=== PATIENT | male | born 1975 | race Caucasian/White ===

== ENCOUNTER → 2024-10-24 | Outpatient (REF) | payer SELFPAY ==
[2024-10-24 09:38] LABS: Hematocrit 26.4 % (40-54); Hemoglobin 8.4 g/dL (13.0-16.5); Mean Corp Hgb Conc 31.8 g/dL (32-36); Mean Corpuscular Hgb 28.5 pg (27.0-32.0); Mean Corpuscular Volume 89.5 fL (80-94); Mean Platelet Vol. 8.7 fl (6.2-12.0); Platelet Count 536 K/mm3 (150-450); RBC Distribution Width CV 18.5 % (11.6-14.6); RBC Distribution Width SD 60.6 fl (35.1-43.9); Red Blood Count 2.95 M/mm3 (4.6-6.2); White Blood Count 12.2 K/mm3 (4.4-11.0)
[2024-10-24 09:55] LABS: Vitamin D,25 Hydroxy 63.4 ng/mL
[2024-10-24 10:06] LABS: Anion Gap 7 (5-15); BUN 18 mg/dL (7-18); Calcium,Total 10.3 mg/dL (8.5-10.1); Chloride 104 mmol/L (98-107); Cholesterol 164 mg/dL (200); Creatinine, Serum 1.29 mg/dL (0.70-1.30); EST Glomerular Filtration Rate 62 mL/min (>60); Est Glom Filt Rate - Afr Amer 75 mL/min (>60); Glucose 95 mg/dL (74-106); High Density Lipoprotein 38 mg/dL; Sodium Level 137 mmol/L (136-145); Triglycerides 150 mg/dL; Very Low Density Lipoprotein 30 mg/dL (5-40)
[2024-10-24 16:39] LABS: Hemoglobin A1c 5.2 % (3.8-5.6)
== END ==
LOC: OLS.ACW100 05:00
PROVIDERS: PCP Family Medicine; Visit Provider Family Medicine
DX: Z00.00 Encounter for general adult medical examination without abnormal findings (principal)
CPT/HCPCS: 36415; 80048; 80061; 82306; 83036; 84443; 85027

== ENCOUNTER → 2024-12-04 | Outpatient (REF) | payer MEDICAID, SELFPAY ==
[2024-12-04 09:24] LABS: Anion Gap 11 (5-15); BUN 15 mg/dL (4-19); BUN/Creat Ratio 11.5 RATIO (10-20); Calcium,Total 10.7 mg/dL (7.6-11.0); Carbon Dioxide 23.5 mmol/L (21.0-32.0); Chloride 104 mmol/L (98-108); Creatinine, Serum 1.32 mg/dL (0.70-1.20); EST Glomerular Filtration Rate 65 (>60); Glucose 105 mg/dL (70-99); Potassium 4.3 mmol/L (3.3-5.1); Sodium Level 139 mmol/L (133-145)
== END | disposition home or self-care (01) ==
LOC: OLS.ACW200 05:00
PROVIDERS: PCP Family Medicine; Visit Provider Family Medicine
DX: A41.9 Sepsis, unspecified organism (principal); R27.9 Unspecified lack of coordination; R53.1 Weakness; R78.81 Bacteremia
CPT/HCPCS: 36415; 80048

== ENCOUNTER → 2025-02-18 05:00 | Outpatient (REF) | payer MEDICAID, SELFPAY ==
[2025-02-18 08:06] LABS: Hematocrit 23.8 % (40-54); Hemoglobin 7.4 g/dL (13.0-16.5); Mean Corp Hgb Conc 31.1 g/dL (32-36); Mean Corpuscular Hgb 24.6 pg (27.0-32.0); Mean Corpuscular Volume 79.1 fL (80-94); Mean Platelet Vol. 9.5 fl (6.2-12.0); POSITIVE COUNT YES; Platelet Count 874 K/mm3 (150-450); RBC Distribution Width CV 19.9 % (11.6-14.6); RBC Distribution Width SD 56.9 fl (35.1-43.9); Red Blood Count 3.01 M/mm3 (4.6-6.2); White Blood Count 11.2 K/mm3 (4.4-11.0)
[2025-02-18 08:07] LABS: Scan Indicated on CBC? Y/N YES- FLAGS NOTED
[2025-02-18 08:29] LABS: Hemoglobin A1c 6.3 % (<=5.6)
[2025-02-18 08:35] LABS: Differential Comment SCANNED
[2025-02-18 08:50] LABS: ALB/GLOB Ratio 0.6 RATIO (0.9-2.4); AST(SGOT) 18 U/L (<=37); Alanine Aminotransfer ALT/SGPT 24 U/L (<=46); Alkaline Phosphatase 195 U/L (40-129); Anion Gap 14 (5-15); BUN 16 mg/dL (4-19); BUN/Creat Ratio 13.2 RATIO (10-20); Calcium,Total 8.9 mg/dL (7.6-11.0); Carbon Dioxide 21.5 mmol/L (21.0-32.0); Chloride 101 mmol/L (98-108); Cholesterol 154 mg/dL (<=200); Creatinine, Serum 1.19 mg/dL (0.70-1.20); EST Glomerular Filtration Rate 74 (>60); Globulin 4.6 g/dL (2.2-4.2); Glucose 92 mg/dL (70-99); High Density Lipoprotein 16 mg/dL; Low Density Lipoprotein Calc. 83 mg/dL; Potassium 4.3 mmol/L (3.3-5.1); Protein, Total 7.6 g/dL (5.9-8.4); Sodium Level 136 mmol/L (133-145); Triglycerides 275 mg/dL; Very Low Density Lipoprotein 55 mg/dL (5-40); Vitamin D,25 Hydroxy 30.4 ng/mL (30-100); cholesterol:hdl ratio screen 9.57
[2025-02-28 15:54] LABS: Pathologist Review Reviewed
== END ==
LOC: OLS.ACW300 05:00
PROVIDERS: PCP Family Medicine; Visit Provider Family Medicine
DX: R53.1 Weakness (principal); A41.9 Sepsis, unspecified organism; L73.2 Hidradenitis suppurativa; S31.829D Unspecified open wound of left buttock, subsequent encounter; Z86.19 Personal history of other infectious and parasitic diseases
CPT/HCPCS: 36415; 80053; 80061; 82306; 83036; 83735; 84443; 85027

== ENCOUNTER → 2025-02-20 05:00 | Outpatient (REF) | payer MEDICAID, SELFPAY ==
--- OUTSIDE RECORDS SUMMARY | 2025-02-20 04:17 | XMS RPT_ITS | CCD ---
Author Organization [facility] Care Team Providers Care Inspector Watch Train Name Role Phone Unavailable Primary Care Provider Unavailabl e LAST, MALECK A Attending Unavailable LAST, MALECK A Attending Unavailable LAST, MALECK A Attending Unavailable LAST, MALECK A Attending Unavailable LAST, MALECK A Attending Unavailable LAST, MALECK A Attending Unavailable LAST, MALECYNTHIA A Attending Unavailable LAST, MALECYNTHIA A Attending Unavailable ЕЛЕНА, MARLON Attending Unavailable ЕЛЕНА, MARLON Attending Unavailable ЕЛЕНА, MARLON Attending Unavailable Unavailable Primary Care Provider Unavailbry Jiang MD, Sreedhar Yousif Unavailable Apolinar NIELSEN, Sreedhar Yousif Unavailable Julio Hare Primary Care Provider Unavail able Julio Hare Attending Provider UnavailJUVENAL Tompkins Attending Unavailable JUVENAL MATHUR Admitting Unavailable ARBEN FERNANDEZ Attending UnavailCLARITA Hooker Admitting Unavailable PAULINO LARIOS Admitting Unavailable PAULINO LARIOS Attending Unavailable XIOMARA KAUFFMAN Attending Unavailable Generic Provider MD, No Assigned Pcp Primary Car e Provider Unavailable Julio Hare Attending Unavailable Julio Hare Primary Care Unavailable Julio Hare Primary Care Unavailable Julio Hare Attending Unavailable Julio Hare Attending Unavailable Julio Hare Primary Care Unavailable KAY HUTCHINSON Referring Unavailable XIOMARA KAUFFMAN Referring Unavailable ANKIT NINO Admitting Unavailable MICA LY Attending Unavailable SUBAUSTE, GILBERT S Admitting Unavailable DELGADO RENEE Consulting Unavailable FIDEL CLARKE Attending Unavailable BALDOMERO WILSON Admitting UnavailFER [place] Referring Unavailable HEATHER LACKEY Attending Unavailable SREEDHAR JIANG Attending Unavailable SUBAUSTE, GILBERT S Referring Unavailable LATRICIA SCHROEDER Referring Unavailbry e TOYA RUBIO Admitting Unavailable MACK FRIAS Attending Unavailable LYNETTE SEGOVIA Referring Unavailable APOLINAR, SREEDHAR Yousif Attending Unavailable APOLINAR, IRIS Y Referring Unavailable APOLINAR, IRIS Y Referring Unavailable APOLINAR, IRIS Y Referring Unavailable ANASTASIIA, CURTIS Admitting Unavailable ANASTASIIA, CURTIS Attending Unavailable SALVADOR, WILLOW Referring Unavailable SALVADOR, WILLOW Referring Unavailable GENERIC PROVIDER, NO ASSIGNED PCP Primary Care Unavailable KONG MINA Admitting Unavailable KONG MINA Attending Unavailable PHIL QUIJANO Referring Unavailable GENERIC PROVIDER, NO ASSIGNED PCP Primary Care Unavailable GENERIC PROVIDER, NO ASSIGNED PCP Primary Care Unavailable GENERIC PROVIDER, NO ASSIGNED PCP Primary Care Unavailable GENERIC PROVIDER, NO ASSIGNED PCP Primary Care Unavailable GENERIC PROVIDER, NO ASSIGNED PCP Primary Care Unavailable GENERIC PROVIDER, NO ASSIGNED PCP Primary Care Unavailable GENERIC PROVIDER, NO ASSIGNED PCP Primary Care Unavailable GENERIC PROVIDER, NO ASSIGNED PCP Primary Care Unavailable GENERIC PROVIDER, NO ASSIGNED PCP Primary Care Unavailable GENERIC PROVIDER, NO ASSIGNED PCP Primary Care Unavailable Allergies Allergy Classification Reported Allergen(s) Allergy Type Date of Onset Reaction(s) Facility (7 sources) Bananas; Translations: [BANANA] Propensity to adverse reactions 5 Itching [facility] (2 sources) ALLERGIES NOT ON FILE; Translations: [ALLERGIES NOT ON FILE] Propensity to adverse reactions (disorder) [facility] 3 Repository (9 sources) Banana Extract Drug Allergy [address] [facility] Medications Current Medications Medication Drug Class(es) Dates Sig (Normalized) Sig (Original) bimekizumab-bkzx (Bimzelx Autoinjector) 160 mg/mL auto-injector (2 sources) Start: 11-12-2024 End: 12-20-2024 bimekizumab-bkzx (Bimzelx Autoinjector) 160 mg/mL auto-injector Indications: Hidradenitis suppurativa Inject 320 mg under the skin see administration instructions. Take 1 dose (320mg) every 2 weeks for 9 doses (16 weeks), then take 1 dose every 4 weeks. 640 mL 12 11/12/2024 12/20/2024 Discontinued (Med List Cleanup) Start: 11-12-2024 End: 11-12-2025 bimekizumab-bkzx (Bimzelx Au toinjector) 160 mg/mL auto-injector Indications: Hidradenitis suppurativa Inject 320 mg under the skin see administration instructions. Take 1 dose (320mg) every 2 weeks for 9 doses (16 weeks), then take 1 dose every 4 weeks. 640 mL 12 11/12/2024 11/12/2025 Active bisacodyl 10 mg rectal suppo sitory (5 sources) Stimulant Laxative Start: 12-17-2024 Start: 12-10-2024 End: 12-17-2024 Start: 11-22-2024 End: 11-22-2024 Start: 11-10-2024 End: 11-10-2024 cholecalciferol 0.025 mg ora l tablet (2 sources) Vitamin D Start: 12-11-2024 Start: 12-07-2024 End: 12-10-2024 cholecalciferol (Vitamin D3) 200 Unit tablet split tablet (6 sources) cholecalciferol (Vitamin D3) 200 Unit tablet split tablet Take 10,000 Units by mouth daily. Active cholecalciferol, vitamin D3, (VITAMIN D3 ORAL) (1 source) take 18843 [IU] by mouth once daily cholecalciferol, vitamin D3, (VITAMIN D3 ORAL) Take 10,000 Units by mouth once daily. Active doxycycline hyclate 100 mg oral tablet (3 sources) Tetracycline- class Drug Start: End: Drug or medicament (substance) (20 sources) Start: Start: 10-13-2024 End: 10-13-2024 Start: 09-30-2024 End: 10-23-2024 Start: 08-20-2024 End: 10-23-2024 Start: 07-08-2024 End: 10-23-2024 Start: 05-27-2024 End: 10-23-2024 Start: 04-12-2024 End: 10-23-2024 Start: 04-04-2024 End: 10-23-2024 Start: 02-29-2024 End: 10-23-2024 Start: 02-09-2024 End: 10-23-2024 Start: 01-16-2024 End: 10-23-2024 Start: 12-29-2023 End: 10-23-2024 Start: 12-11-2023 End: 10-23-2024 End: 12-08-2024 ferrous sulfate 325 mg delayed release oral tablet (11 sources) take 1 tablet by barbara th once daily ferrous sulfate 325 (65 Fe) MG EC tablet Take 1 tablet by mouth daily. Active 1 ml heparin sodium, porcine 5000 unt/ml injection (1 source) Unfractionated Heparin, Anti-coagulant Start: 10-11-2024 1 ml HYDROmorphone hydrochloride 1 mg/ml cartridge (15 sources) Opioid Agonist Start: 12-07-2024 Start: 11-15-2024 End: 11-19-2024 Start: 11-15-2024 End: 11-17-2024 Start: 11-13-2024 End: 11-15-2024 take 0.4 mg intravenously every four hours as needed Start: 11-12-2024 End: 11-12-2024 Start: 10-16-2024 End: 10-16-2024 Start: 10-15-2024 take 0.4 mg intravenously ever y four hours as needed Start: 10-13-2024 End: 10-13-2024 Start: 10-10-2024 End: 10-15-2024 sodium hypochlorite 2.5 mg/ml topical solution (4 sources) Start: 12-24-2024 End: 12-24-2024 sodium hypochlorite (Dakin's, HALF-Strength,) 0.25 % external solution Irrigate with as directed 2 times daily. 12/24/2024 Active lactose-reduced food (ENSURE PLUS ORAL) (2 sources) lactose-reduced food (ENSURE PLUS ORAL) Take by mouth once daily in the morning. Active multivitamin with minerals tablet (2 sources) Start: 11-28-2024 End: 12-20-2024 take 1 tablet by mouth once daily multivitamin with minerals tablet Indications: Vitamin deficiency Take 1 tablet by mouth once daily. 11/28/2024 12/20/2024 Discontinued (Med List Cleanup) Start: 11-28-2024 End: 11-28-2025 take 1 tablet by mouth once daily multivitamin with minerals tablet Indications: Vitamin deficiency Take 1 tablet by mouth once daily. 11/28/2024 11/28/2025 Active mv-min/folic/K1/lycopen/lute in (MEN 50 PLUS MULTIVITAMIN ORAL) (1 source) take 1 tablet by mouth once daily mv-min/folic/K1/lycopen/lutein (MEN 50 PLUS MULTIVITAMIN ORAL) Take 1 tablet by mouth once daily. Active oxyCODONE hydrochloride 20 m g oral tablet (20 sources) Opioid Agonist St ar t: 04 -0 - 25 En d: 04 -0 25 take 5 mg by mouth once 5 mg, Oral, Once, On Mon12/24/24 at 1145, For 1 dose Start: 12-24-2024 End: 12-24-2024 take 5 mg by mouth once 5 mg, Oral, Once, On 12/24 at 1145, For 1 dose Start: 12-24-2024 End: 12-24-2024 take 5 mg by mouth once 5 mg, Oral, Once, On 12/24 at 1015, For 1 dose Start: 12-22-2024 End: 12-29-2024 take 1 tablet by mouth every four hours as needed for pain oxyCODONE (Roxicodone) 20 MG immediate release tablet Indications: Abscess of left hip Take 1 tablet (20 mg) by mouth every 4 hours as needed for severe pain (7-10) for up to 5 days. 12/24/2024 12/29/2024 Active Start: 12-07-2024 End: 12-07-2024 Start: 12-07-2024 End: 12-07-2024 take 1 tablet by mouth every six hours as needed for pain and pain 5 mg, Oral, Every 6 hours PRN, severe pain (7-10), moderate pain (4-6), Starting on 12/07/24 at 0556 Start: 11-27-2024 End: 12-30-2024 take 1 tablet by mouth every three hours oxyCODONE (Roxicodone) 20 mg immediate release tablet Indications: Cancer associated pain Take 1 tablet (20 mg) by mouth every 3 (three) hours for 11 days. 88 tablet 12/19/2024 12/30/2024 Active Start: 11-25-2024 Start: 11-23-2024 End: 11-23-2024 Start: 11-10-2024 End: 11-25-2024 take 10 mg by mouth every six hours as needed Start: 11-08-2024 End: 11-10-2024 take 1 tablet by mouth every four hours as needed for pain oxyCODONE (Roxicodone) immediate release tablet 2.5 mg Start: 11-08-2024 End: 11-08-2024 take 5 mg by mouth once 5 mg, Oral, Once, On 10/20 at 1720, For 1 dose Start: 10-11-2024 End: 10-28-2024 take 10 mg by mouth every six hours as needed Start: 09-16-2024 End: 09-16-2024 take 5 mg by mouth once as needed for pain 5 mg, oral, Once, On 09/16/24 at 0730, For 1 dose, If ordered PRN for pain, nurse is permitted to administer this medication for higher pain scores based on patient preference? Yes Start: 09-15-2024 take 1 tablet by barbara th every six hours as needed 5 mg, oral, Every 6 hours PRN, pain moderate (4-6), first line, PRN PRIOR TO DRESSING CHANGES, Starting on 09/15/24 at 1022, If ordered PRN for pain, nurse is permitted to administer this medication for higher pain scores based on patient preference? Yes prochlorperazine 5 mg/ml injectable solution (1 source) Phenothiazine Start: 11-20-2024 take 10 mg intravenously every six hours as needed Study [facility] [id number] povorcitinib 45mg or 75mg tablet (20 sources) Start: 09-30-2024 take 1 tablet by mouth once daily in the morning Study [facility] [id number] povorcitinib 45mg or 75mg tablet Indications: Clinical trial participant Take 1 tablet by mouth once daily. Preferably in the morning, with a full glass of water. 31 tablet 09/30/2024 Active Start: 08-20-2024 take 1 tablet by barbara th once daily in the morning Study [facility] [id number] povorcitinib 45mg or 75mg tablet Indications: Clinical trial participant Take 1 tablet by mouth once daily. Preferably in the morning, with a full glass of water. 62 tablet 08/20/2024 Active Start: 07-08-2024 take 1 tablet by barbara th once daily in the morning Study [facility] [id number] povorcitinib 45mg or 75mg tablet Indications: Clinical trial participant Take 1 tablet by mouth once daily. Preferably in the morning, with a full glass of water. 62 tablet 07/08/2024 Active Start: 05-27-2024 take 1 tablet by barbara th once daily in the morning Study [facility] [id number] povorcitinib 45mg or 75mg tablet Indications: Clinical trial participant Take 1 tablet by mouth once daily. Preferably in the morning, with a full glass of water. 62 tablet 05/27/2024 Active Start: 04-12-2024 take 1 tablet by barbara th once daily in the morning Study [facility] [id number] povorcitinib 45mg or 75mg tablet Indications: Clinical trial participant Take 1 tablet by mouth once daily. Preferably in the morning, with a full glass of water. 62 tablet 04/12/2024 Active Start: 04-04-2024 take 1 tablet by barbara th once daily in the morning Study [facility] [id number] povorcitinib 45mg or 75mg tablet Indications: Clinical trial participant Take 1 tablet by mouth once daily. Preferably in the morning, with a full glass of water. 31 tablet 04/04/2024 Active Start: 02-29-2024 take 1 tablet by barbara th once daily in the morning Study [facility] [id number] povorcitinib 45mg or 75mg tablet Indications: Clinical trial participant Take 1 tablet by mouth once daily. Preferably in the morning, with a full glass of water. 31 tablet 02/29/2024 Active Study [facility] [id number] povorcitinib 45mg, 75mg or placebo tablet (20 sources) Start: 02-09-2024 take 1 tablet by mouth once daily in the morning Study [facility] [id number] povorcitinib 45mg, 75mg or placebo tablet Indications: Clinical trial participant Take 1 tablet by mouth once daily. Preferably in the morning, with a full glass of water. 31 tablet 02/09/2024 Active Start: 01-16-2024 take 1 tablet by barbara th once daily in the morning Study [facility] [id number] povorcitinib 45mg, 75mg or placebo tablet Indications: Clinical trial participant Take 1 tablet by mouth once daily. Preferably in the morning, with a full glass of water. 31 tablet 01/16/2024 Active Start: 12-29-2023 take 1 tablet by barbara th once daily in the morning Study [facility] [id number] povorcitinib 45mg, 75mg or placebo tablet Indications: Clinical trial participant Take 1 tablet by mouth once daily. Preferably in the morning, with a full glass of water. 31 tablet 12/29/2023 Active Start: 12-11-2023 take 1 tablet by barbara th once daily in the morning Study [facility] [id number] povorcitinib 45mg, 75mg or placebo tablet Indications: Clinical trial participant Take 1 tablet by mouth once daily. Preferably in the morning, with a full glass of water. 31 tablet 12/11/2023 Active Start: 12-11-2023 take 1 tablet by barbara th once daily in the morning Study [facility] [id number] povorcitinib 45mg, 75mg or placebo tablet Indications: Clinical trial participant Take 1 tablet by mouth once daily. Preferably in the morning, with a full glass of water. 31 tablet 0 12/11/2023 Active Vancomycin (20 sources) Glycopeptide Antibacterial Start: 12-24-2024 take 1250 mg intravenously every twelve hours vancomycin IVPB 1250 mg in 250 mL NS (premix) Infuse 250 mL (1,250 mg) into a venous catheter every 12 hours. 12/24/2024 Active Start: 12-23-2024 End: 12-24-2024 1,250 mg (rounded from 1,341 mg = 15 mg/kg 89.4 kg), IntraVENous, at 166.7 mL/hr, Administer over 90 Minutes, Every 12 hours, First dose on Mon12/23/24 at 1100, premix bag, Suspected Indication (Select all that apply): Skin and Soft Tissue Infection Start: 12-22-2024 End: 12-22-2024 Start: 12-07-2024 End: 12-08-2024 take 1000 mg intravenously every twelve hours Start: 12-07-2024 End: 12-07-2024 take 1250 mg intravenously every twelve hours 1,250 mg, IntraVENous, at 166.7 mL/hr, Administer over 90 Minutes, Every 12 hours, First dose on 12/07/24 at 0630, premix bag, Suspected Indication (Select all that apply): Skin and Soft Tissue Infection Start: 12-06-2024 End: 12-06-2024 1,750 mg (rounded from 1,788 mg = 20 mg/kg 89.4 kg), IntraVENous, at 250 mL/hr, Administer over 120 Minutes, Once, On Mon12/06/24 at 1400, For 1 dose, premix bag, Suspected Indication (Select all that apply): Skin and Soft Tissue Infection Start: 11-10-2024 End: 11-11-2024 take 1000 mg intravenously every twelve hours Start: 11-08-2024 End: 11-08-2024 2,000 mg (rounded from 2,080 mg = 20 mg/kg 104 kg), IntraVENous, at 250 mL/hr, Administer over 120 Minutes, Once, On Mon11/08/24 at 1555, For 1 dose, premix bag, Suspected Indication (Select all that apply): Skin and Soft Tissue Infection Start: 10-10-2024 End: 10-19-2024 take 750 mg intravenously every twelve hours Start: 09-14-2024 End: 09-16-2024 take 750 mg intravenously every twelve hours 750 mg, intravenous, at 200 mL/hr, Administer over 45 Minutes, Every 12 hours, First dose on 09/14/24 at 1015, premix bag, Dosing of this medication varies based on severity of illness. Does this patient have sepsis or concern for sepsis (probable or documented infection plus systemic manifestations of infection)? No, Suspected Indication (Select all that apply): Cellulitis, Skin and Soft Tissue, Type of Therapy: Empiric, Indications: Cellulitis, Skin and Soft Tissue Start: 09-13-2024 End: 09-13-2024 2,000 mg, IntraVENous, at 25 0 mL/hr, Administer over 120 Minutes, Every 24 hours, First dose on Mon09/13/24 at 2000, premix bag, Suspected Indication (Select all that apply): Skin and Soft Tissue Infection Start: 09-12-2024 End: 09-13-2024 2,000 mg (rounded from 2,040 mg = 20 mg/kg 102 kg), IntraVENous, at 250 mL/hr, Administer over 120 Minutes, Once, On Key 09/12/24 at 2300, For 1 dose, premix bag, Suspected Indication (Select all that apply): Skin and Soft Tissue Infection varenicline 1 mg oral tablet (20 sources) Partial Cholinergic Nicotinic Agonist Start: 11-10-2024 Start: 10-22-2024 End: 01-19-2025 varenicline tartrate (Chanti x) 0.5 mg tablet Indications: Nicotine dependence, uncomplicated, unspecified nicotine product type Take 1 tablet (0.5 mg) by mouth 2 times a day for 4 days, THEN 2 tablets (1 mg) 2 times a day. Take with full glass of water.. Do not fill before October 22, 2024. 316 tablet 10/22/2024 12/20/2024 Discontinued (Med List Cleanup) Start: 09-18-2024 End: 12-07-2024 Start: 09-18-2024 End: 09-22-2024 varenicline (Chantix) tablet 0.5 mg (2 sources) Start: 10-21-2024 End: 10-28-2024 take 3 g intravenously every six hours Start: 10-19-2024 take 3 g intravenously every s ix hours (5 sources) Start: 12-08-2024 take 4 mg by mouth every eight hours as needed [Order 1 Start] Name: ondansetron (Zofran) tablet 4 mg Signed Summary: 4 mg, oral, Every 8 hours PRN, nausea/vomiting, first line, Starting on 12/08/24 at 1549 [Order 1 End] [Order 2 Start] Name: ondansetron (Zofran) injection 4 mg Signed Summary: 4 mg, intravenous, Every 8 hours PRN, nausea/vomiting, first line, Starting on 12/08/24 at 1549, Give IV if patient is unable to take orally. When administering via IV Push, administer over 3-5 minutes. [Order 2 End] Start: 12-08-2024 take 10 mg by mouth every six hours as needed [Order 1 Start] Name: prochlorperazine (Compazine) tablet 10 mg Signed Summary: 10 mg, oral, Every 6 hours PRN, nausea/vomiting, second line, Starting on 12/08/24 at 1023 [Order 1 End] [Order 2 Start] Name: prochlorperazine (Compazine) injection 10 mg Signed Summary: 10 mg, intravenous, Every 6 hours PRN, nausea/vomiting, second line, Starting on Mon12/08/24 at 1023, Give IV if patient is unable to take orally. [Order 2 End] [Order 3 Start] Name: prochlorperazine (Compazine) suppository 25 mg Signed Summary: 25 mg, rectal, Every 12 hours PRN, nausea/vomiting, second line, Starting on Mon12/08/24 at 1023, Give IN if patient is unable to take orally or receive by injection. [Order 3 End] Start: 11-12-2024 End: 11-12-2024 Start: 10-22-2024 End: 10-26-2024 [Order 1 Start] Name: vareni chou tartrate (Chantix) tablet 0.5 mg Signed Summary: 0.5 mg, oral, 2 times daily, First dose on Mon10/22/24 at 0900, For 4 days, Increased frequency on days 4-7, then increased dose to 1 mg twice daily from day 8 through the end of 12 weeks of treatment. [Order 1 End] [Order 2 Start] Name: varenicline tartrate (Chantix) tablet 1 mg Signed Summary: 1 mg, oral, 2 times daily, First dose on Mon10/26/24 at 0900, For 77 days, Increased dose of 1 mg twice daily from week 2 through end of 12 weeks of treatment. [Order 2 End] Start: 10-15-2024 End: 10-15-2024 Completed/Discontinued Medications Medication Drug Class(es) Dates Sig (Normalized) Sig (Original) Acetaminophen (20 sources) Start: 12-23-2024 End: 12-24-2024 take 1 tablet by mouth every six hours as needed for pain and fever acetaminophen (Tylenol) tablet 650 mg Start: 12-22-2024 End: 12-24-2024 take 1 tablet by mouth every six hours 1,000 mg, Oral, Every 6 hours, First dose on Mon12/22/24 at 1400, Maximum dose of acetaminophen is 4000 mg from all sources in 24 hours. Start: 12-07-2024 take 1 tablet by barbara th every eight hours Start: 12-07-2024 End: 12-07-2024 take 1 tablet by mouth every six hours as needed for pain and fever acetaminophen (Tylenol) tablet 650 mg Start: 11-10-2024 Start: 11-09-2024 End: 11-19-2024 take 2 tablets by mouth every eight hours acetaminophen (Tylenol) 500 MG tablet Take 2 tablets (1,000 mg) by mouth every 8 hours for 10 days. 11/09/2024 11/19/2024 Active Start: 11-08-2024 End: 11-10-2024 take 1 dose by mouth three times daily, then take 4000 mg by mouth every twenty-four hours 1,000 mg, Oral, Every 8 hours scheduled (3 times per day), First dose on Mon11/08/24 at 2035, Maximum dose of acetaminophen is 4000 mg from all sources in 24 hours. Start: 11-08-2024 End: 11-08-2024 1,000 mg, Oral, Once, On Mon11/08/24 at 1515, For 1 dose, Maximum dose of acetaminophen is 4000 mg from all sources in 24 hours. Start: 10-11-2024 End: 10-11-2024 take 1 tablet by mouth every six hours as needed Start: 09-17-2024 End: 11-26-2024 take 3 tablets by mouth every eight hours acetaminophen (Tylenol) 325 mg tablet Indications: Wound infection Take 3 tablets (975 mg) by mouth every 8 hours. 11/27/2024 Suspended Start: 09-13-2024 take 1 tablet by barbara th every eight hours 975 mg, oral, Every 8 hours, First dose (after last modification) on Mon09/13/24 at 2315, If ordered PRN for pain, nurse is permitted to administer this medication for higher pain scores based on patient preference? Yes 20 ml albumin human, long-term 250 mg/ml injection (2 sources) Human Serum Albumin Start: 12-23-2024 End: 12-24-2024 50 g, IntraVENous, at 60 mL/hr, Once, On Mon12/23/24 at 1240, For 1 dose, Infusion rate depends on indication and clinical situation. In emergencies, may administer as rapidly as necessary to improve clinical condition. After initial volume replacement: 25%: Do not exceed 1 mL/minute (60 mL/hr) in patients with normal plasma volume; 2 to 3 mL/minute (120 to 180 mL/hr) in patients with hypoproteinemia amoxicillin 875 mg / clavulanate 125 mg oral tablet (20 sources) Penicillin-class Antibacterial Start: 11-27-2024 End: 01-12-2025 take 1 tablet by mouth twice daily amoxicillin-pot clavulanate (Augmentin) 875-125 mg tablet Indications: Wound infection Take 1 tablet by mouth 2 times a day for 24 days. 12/19/2024 01/12/2025 Start: 11-27-2024 End: 01-12-2025 Start: 11-14-2024 End: 11-22-2024 Start: 09-17-2024 End: 10-23-2024 Start: 09-17-2024 End: 10-08-2024 take 1 tablet by mouth twice daily in the evening amoxicillin-pot clavulanate (Augmentin) 875-125 mg tablet Indications: Wound infection Take 1 tablet by mouth 2 times a day for 21 days. 42 tablet 09/17/2024 2:31 PM EST 09/17/2024 10/08/2024 Active calcium carbonate 500 mg stacie wable tablet (2 sources) Start: 12-16-2024 End: 12-16-2024 Start: 10-14-2024 calcium chloride 0.0014 meq/ ml / potassium chloride 0.004 meq/ml / sodium chloride 0.103 meq/ml / sodium lactate 0.028 meq/ml injectable solution (15 sources) Start: 12-23-2024 End: 12-23-2024 500 mL, IntraVENous, at 250 mL/hr, Administer over 2 Hours, Once, On Mon12/23/24 at 1525, For 1 dose Start: 12-22-2024 End: 12-24-2024 take 125 mL intravenously every hour 125 mL/hr, IntraVENous, Continuous, Starting on Mon12/23/24 at 0740, For 24 hours Start: 12-18-2024 End: 12-18-2024 Start: 12-15-2024 End: 12-15-2024 Start: 12-11-2024 End: 12-11-2024 Start: 12-09-2024 End: 12-09-2024 Start: 11-19-2024 End: 11-20-2024 Start: 09-13-2024 End: 09-14-2024 1,000 mL, intravenous, at 50 0 mL/hr, Administer over 2 Hours, Once, On Mon09/13/24 at 2300, For 1 dose cefTRIAXone 2000 mg injection (1 source) Cephalosporin Antibacterial Start: 12-10-2024 End: 12-16-2024 cetirizine hydrochloride 10 mg oral tablet (20 sources) Histamine-1 Receptor Antagonist Start: 12-20-2024 End: 01-19-2025 take 1 tablet by mouth once daily cetirizine (ZyrTEC) 10 mg tablet Indications: Rhinitis, unspecified type Take 1 tablet (10 mg) by mouth once daily. 12/20/2024 01/19/2025 Suspended Start: 12-19-2024 Start: 10-11-2024 Start: 09-14-2024 take 10 mg by mouth once daily 10 mg, oral, Daily, First dose on Mon09/14/24 at 0900 chlorhexidine gluconate 40 mg/ml medicated liquid soap (20 sources) Start: 11-11-2024 chlorhexidine (Hibiclens) 4 % external liquid Indications: Wound infection Apply topically 2 times a day. 11/27/2024 Suspended clindamycin 0.01 mg/mg topical gel (20 sources) Lincosamide Antibacterial Start: 10-11-2024 clindamycin (Cleocin T) 1 % gel Indications: Hidradenitis suppurativa , Abscess Apply topically 2 times a day. Apply to left thigh around incision and drainage site, do not apply directly to surgery site 10/21/2024 Suspended Start: 09-14-2024 End: 10-23-2024 Start: 09-13-2024 End: 09-13-2024 Topical, 2 times daily, Firs t dose on Mon09/13/24 at 2100, Left buttocks: Hydradenitis suppurativa -cleanse with Hibiclens and rinse, apply Clindamycin 1%, cover with Maxorb and ABD pads, secure with Mesh underpants BID and PRN -offload areas as much as possible while in bed and in chair clindamycin (Gregg ocin T) 1 % external solution Apply topically 2 times a day. Apply around incision site not on direct incision Suspended docusate sodium 50 mg / sennosides, long-term 8.6 mg oral tablet (20 sources) Start: 11-27-2024 End: 11-27-2025 take 2 tablets by mouth twice daily sennosides-docusate sodium (Leda-Colace) 8.6-50 mg tablet Indications: Opioid-induced constipation Take 2 tablets by mouth 2 times a day. 11/27/2024 11/27/2025 Suspended Start: 10-22-2024 End: 11-27-2025 0.4 ml enoxaparin sodium 100 mg/ml prefilled syringe (14 sources) Low Molecular Weight Heparin Start: 12-23-2024 End: 12-24-2024 inject 40 mg by subcutaneous injection every twenty-four hours 40 mg, SubCUTAneous, Every 24 hours scheduled (Daily), First dose on Mon12/23/24 at 0945, Indication of Use: Prophylaxis-DVT/PE, Indications: Prophylaxis of Venous Thromboembolism Start: 11-27-2024 End: 12-07-2024 Start: 11-27-2024 inject 0.4 mL by sub cutaneous injection every twenty-four hours enoxaparin (Lovenox) 40 mg/0.4 mL syringe Indications: deep vein thrombosis prevention Inject 0.4 mL (40 mg) under the skin once every 24 hours. 11/27/2024 Active Start: 11-08-2024 End: 11-13-2024 Start: 09-15-2024 inject 40 mg by subc utaneous injection every twenty-four hours 40 mg, subcutaneous, Every 24 hours scheduled, First dose on Mon09/15/24 at 1600 72 hr fentaNYL 0.075 mg/hr transdermal system (17 sources) Opioid Agonist Start: 12-06-2024 End: 12-06-2024 take 1 dose by mouth every hour 50 mcg, IntraVENous, Once, On Mon12/06/24 at 2305, For 1 dose, If oral and injectable narcotics ordered, use oral first and only use injectable if oral is ineffective or cannot take oral. Do Not give oral and injectable within 1 hour of each other unless specifically ordered. Start: 12-06-2024 End: 12-06-2024 take 1 dose by mouth every hour 25 mcg, IntraVENous, Once, On Mon12/06/24 at 1505, For 1 dose, If oral and injectable narcotics ordered, use oral first and only use injectable if oral is ineffective or cannot take oral. Do Not give oral and injectable within 1 hour of each other unless specifically ordered. Start: 12-06-2024 End: 12-06-2024 take 1 dose by mouth every hour 25 mcg, IntraVENous, Once, On Mon12/06/24 at 1505, For 1 dose, If oral and injectable narcotics ordered, use oral first and only use injectable if oral is ineffective or cannot take oral. Do Not give oral and injectable within 1 hour of each other unless specifically ordered. Start: 11-28-2024 End: 12-20-2024 fentaNYL (Duragesic) 75 mcg/ hr patch Indications: Cancer associated pain Place 1 patch over 72 hours on the skin every 3rd day for 9 days. 3 patch 11/28/2024 12/20/2024 Discontinued (Med List Cleanup) Start: 11-25-2024 End: 12-12-2024 Start: 11-20-2024 End: 11-25-2024 Start: 11-08-2024 End: 11-08-2024 take 1 dose by mouth every hour 50 mcg, IntraVENous, Once, On Mon11/08/24 at 1515, For 1 dose, If oral and IV narcotics ordered, use oral first and only use IV if oral is ineffective or cannot take oral. Do Not give oral and IV within 1 hour of each other unless specifically ordered. Start: 09-13-2024 End: 09-13-2024 50 mcg, IntraVENous, Every 1 hour PRN, moderate pain (4-6), severe pain (7-10), Starting on Mon09/13/24 at 1732, For 3 doses, If oral and IV narcotics ordered, use oral first and only use IV if oral is ineffective or cannot take oral. Do Not give oral and IV within 1 hour of each other unless specifically ordered. folic acid 1 mg oral tablet (20 sources) Start: 11-16-2024 take 1 tablet by mouth once daily folic acid (Folvite) 1 mg tablet Indications: Vitamin deficiency Take 1 tablet (1 mg) by mouth once daily. 11/27/2024 Suspended Start: 11-14-2024 End: 11-15-2024 gabapentin 300 mg oral capsule (20 sources) Anti-epileptic Agent Start: 11-27-2024 End: 11-27-2025 take 1 capsule by mouth twice daily gabapentin (Neurontin) 300 MG capsule Take 300 mg by mouth 2 times daily. 11/27/2024 11/27/2025 Active Start: 11-21-2024 End: 11-27-2025 take 1 capsule by mouth once daily at bedtime gabapentin (Neurontin) 300 mg capsule Indications: Cancer associated pain Take 1 capsule (300 mg) by mouth once daily at bedtime. 11/27/2024 11/27/2025 Suspended ibuprofen 200 mg oral tablet (4 sources) Nonsteroidal Anti-inflammatory Drug End: 10-23-2024 take 600 mg by mouth every four hours iopamidol (Isovue-370) 76 % injection 75 mL (6 sources) Start: 12-06-2024 End: 12-06-2024 take 75 mL intravenously once as needed 75 mL, IntraVENous, IMG once PRN, contrast, Starting on Mon12/06/24 at 1246, For 1 dose Start: 11-08-2024 End: 11-08-2024 take 75 mL intravenously once as needed 75 mL, IntraVENous, IMG once PRN, contrast, Starting on Mon11/08/24 at 1643, For 1 dose Start: 09-12-2024 End: 09-12-2024 take 75 mL intravenously once as needed 75 mL, IntraVENous, IMG once PRN, contrast, Starting on Key 09/12/24 at 2133, For 1 dose 1 ml ketorolac tromethamine 30 mg/ml cartridge (14 sources) Nonsteroidal Anti-inflammatory Drug, Cyclooxygenase Inhibitor Start: 12-06-2024 End: 12-07-2024 15 mg, IntraVENous, Once, On 12/07/24 at 0505, For 1 dose Start: 12-06-2024 End: 12-07-2024 30 mg, IntraVENous, Once, On 12/07/24 at 1210, For 1 dose Start: 09-13-2024 End: 09-18-2024 take 30 mg intravenously every six hours as needed 30 mg, intravenous, Every 6 hours PRN, pain moderate (4-6), first line, pain severe (7-10), first line, Starting on 09/15/24 at 0956, For 85 hours, On hold since 09/15/2024 at 1017 until manually unheld Start: 09-13-2024 End: 09-13-2024 15 mg, IntraVENous, Once, On Mon09/13/24 at 0050, For 1 dose lactulose 667 mg/ml oral solution (20 sources) Osmotic Laxative Start: 11-21-2024 End: 01-26-2025 take 30 mL by mouth three times daily lactulose 20 gram/30 mL oral solution Indications: Opioid-induced constipation Take 30 mL (20 g) by mouth 3 times a day. 11/27/2024 01/26/2025 Suspended 50 ml magnesium sulfate 40 mg/ml injection (2 sources) Start: 11-21-2024 End: 11-21-2024 Start: 11-10-2024 End: 11-10-2024 melatonin 3 mg oral tablet (20 sources) Start: 11-08-2024 End: 11-27-2025 take 1 tablet by mouth once daily at bedtime melatonin 3 mg tablet Indications: Cancer associated pain Take 1 tablet (3 mg) by mouth once daily at bedtime. 11/27/2024 11/27/2025 Suspended methadone hydrochloride 10 mg oral tablet (7 sources) Opioid Agonist Start: 12-12-2024 End: 12-29-2024 take 1 tablet by mouth every eight hours 10 mg, Oral, Every 8 hours, First dose on Mon12/22/24 at 1300 metroNIDAZOLE 500 mg oral tablet (1 source) Nitroimidazole Antimicrobial Start: 12-10-2024 End: 12-16-2024 1 ml morphine sulfate 4 mg/ml cartridge (2 sources) Opioid Agonist Start: 09-13-2024 End: 09-13-2024 take 4 mg intravenously every four hours as needed for pain 4 mg, IntraVENous, Every 4 hours PRN, severe pain (7-10), Starting on Mon09/13/24 at 0045, For 3 doses, If oral and IV narcotics ordered, use oral first and only use IV if oral is ineffective or cannot take oral. Do Not give oral and IV within 1 hour of each other unless specifically ordered. multivitamin tablet (19 sources) take 1 tablet by mouth once daily multivitamin tablet Take 1 tablet by mouth once daily. Suspended 1 ml naloxone hydrochloride 0.4 mg/ml injection (20 sources) Opioid Antagonist Start: 12-23-2024 End: 12-24-2024 0.4 mg, IntraVENous, Every 5 min PRN, opioid reversal, respiratory depression, Starting on 12/23/24 at 0942, +++ For RR Start: 12-07-2024 End: 12-07-2024 0.4 mg, IntraVENous, Every 5 min PRN, opioid reversal, respiratory depression, Starting on Mon12/07/24 at 0556, +++ For RR Start: 11-27-2024 End: 11-27-2025 naloxone (Narcan) 0.4 mg/mL injection Indications: Cancer associated pain Infuse 0.5 mL (0.2 mg) into a venous catheter if needed for opioid reversal. 11/27/2024 11/27/2025 Suspended Start: 11-27-2024 End: 11-27-2025 Start: 11-10-2024 Start: 11-09-2024 naloxone (Narc an) 0.4 MG/ML injection Infuse 1 mL (0.4 mg) into a venous catheter as needed for opioid reversal. 11/09/2024 Active Start: 11-08-2024 End: 11-10-2024 0.4 mg, IntraVENous, PRN, op ioid reversal, Starting on Mon11/08/24 at 2028, For oversedation/difficult to rouse, pinpoint pupils, RR Start: 09-13-2024 End: 09-13-2024 0.4 mg, IntraVENous, Every 5 min PRN, opioid reversal, respiratory depression, Starting on Mon09/13/24 at 1050, +++ For RR 24 hr nicotine 0.875 mg/hr transdermal system (8 sources) Cholinergic Nicotinic Agonist Start: 10-11-2024 End: 10-19-2024 Start: 09-15-2024 End: 10-23-2024 norepinephrine (Levophed) 4 mg in 0.9% sodium chloride 250 mL infusion (Vxq-Tmexos-Zxdpx) (premix) (2 sources) Start: 12-22-2024 End: 12-23-2024 2-50 mcg/min (7.5-187.5 mL/hr), IntraVENous, Continuous, Starting on Mon12/22/24 at 1605, For 24 hours, If Titrate Infusion? is "No": Disregard instructions below. If Titrate infusion? is "Yes": If rate LESS than 10 mcg/min: Titrate by 2 mcg/min no faster than every 5 minutes to goal. If rate GREATER than or equal to 10 mcg/min: Titrate by 5 mcg/min no faster than every 5 minutes to goal. When approaching therapeutic goal or weaning off, smaller titration increments of 1 mcg/min no faster than every 5 minutes may be used to maintain goal., Titrate Infusion: Yes, Initial Infusion Dose: 5 mcg/min, Goal of Therapy is: MAP great than 65 mmHg, Contact Provider if: Patient is receiving the maximum dose and is not achieving the goal of therapy, If held outside of ordered parameters contact provider for further direction omeprazole 20 mg delayed release oral capsule (20 sources) Proton Pump Inhibitor Start: 12-19-2024 End: 02-17-2025 take 1 capsule by mouth once daily omeprazole (PriLOSEC) [address] capsule Indications: Gastroesophageal reflux disease without esophagitis Take 1 capsule (20 mg) by mouth once daily. Do not crush or chew. 12/19/2024 02/17/2025 Suspended ondansetron 4 mg oral tablet (20 sources) Serotonin-3 Receptor Antagonist Start: 12-19-2024 End: 01-18-2025 take 1 tablet by mouth every eight hours for nausea ondansetron (Zofran) 4 mg tablet Indications: Cancer associated pain Take 1 tablet (4 mg) by mouth every 8 hours if needed for nausea or vomiting. 12/19/2024 01/18/2025 Suspended Start: 12-07-2024 End: 12-08-2024 take 8 mg intravenously every eight hours as needed Start: 12-07-2024 End: 12-07-2024 4 mg, IntraVENous, Once, On 12/07/24 at 0245, For 1 dose Start: 11-27-2024 End: 11-27-2025 take 8 mg intravenously every eight hours as needed for nausea and nausea ondansetron (Zofran) 4 mg/2 mL injection Indications: Nausea Infuse 4 mL (8 mg) into a venous catheter every 8 hours if needed for vomiting or nausea. 11/27/2024 11/27/2025 Active Start: 11-20-2024 End: 11-27-2025 take 8 mg intravenously every eight hours as needed for nausea and nausea Start: 11-13-2024 End: 11-13-2024 Start: 11-10-2024 End: 11-20-2024 take 4 mg intravenously every six hours as needed Start: 11-09-2024 take 4 mg intravenou sly every six hours as needed for nausea and vomiting ondansetron (Zofran) 4 MG/2ML injection Infuse 2 mL (4 mg) into a venous catheter every 6 hours as needed for nausea or vomiting. 11/09/2024 Active Start: 11-09-2024 End: 11-16-2024 take 1 tablet by mouth every eight hours as needed for nausea and vomiting ondansetron ODT (Zofran-ODT) 4 MG disintegrating tablet Take 1 tablet (4 mg) by mouth every 8 hours as needed for nausea or vomiting for up to 7 days. 11/09/2024 11/16/2024 Active Start: 11-08-2024 End: 11-08-2024 4 mg, IntraVENous, Once, On Mon11/08/24 at 1515, For 1 dose Start: 09-17-2024 End: 10-23-2024 take 4 mg by mouth every eight hours as needed for nausea and nausea ondansetron ODT (Zofran-ODT) disintegrating tablet 4 mg (8 sources) Start: 12-23-2024 End: 12-24-2024 take 1 tablet by mouth every eight hours as needed for nausea and vomiting ondansetron ODT (Zofran-ODT) disintegrating tablet 4 mg Start: 12-07-2024 End: 12-07-2024 take 1 tablet by mouth every eight hours as needed for nausea and vomiting ondansetron ODT (Zofran-ODT) disintegrating tablet 4 mg Start: 11-08-2024 End: 11-10-2024 take 1 tablet by mouth every eight hours as needed for nausea and vomiting ondansetron ODT (Zofran-ODT) disintegrating tablet 4 mg Start: 09-16-2024 take 1 tablet by barbara th every eight hours as needed ondansetron ODT (Zofran-ODT) disintegrating tablet 4 mg piperacillin 4000 mg / tazobactam 500 mg injection (20 sources) Penicillin-class Antibacterial, beta Lactamase Inhibitor Start: 12-23-2024 End: 12-24-2024 take 4500 mg intravenously every six hours 4,500 mg, IntraVENous, at 200 mL/hr, Administer over 0.5 Hours, Every 6 hours, First dose on Mon12/23/24 at 0340, premix bag, Suspected Indication (Select all that apply): Pneumonia (CAP) Start: 12-22-2024 End: 12-22-2024 4.5 g, IntraVENous, at 200 m L/hr, Administer over 0.5 Hours, Once, On Mon12/22/24 at 1230, For 1 dose, premix bag, Suspected Indication (Select all that apply): Skin and Soft Tissue Infection Start: 12-07-2024 End: 12-07-2024 take 4500 mg intravenously every six hours 4,500 mg, IntraVENous, at 200 mL/hr, Administer over 0.5 Hours, Every 6 hours, First dose (after last modification) on 12/07/24 at 1300, Dosage or interval has been adjusted per P&T Renal Dosing policy. premix bag, Suspected Indication (Select all that apply): Skin and Soft Tissue Infection Start: 12-06-2024 End: 12-06-2024 4,500 mg, IntraVENous, at 20 0 mL/hr, Administer over 0.5 Hours, Once, On Mon12/06/24 at 1345, For 1 dose, premix bag, Suspected Indication (Select all that apply): Skin and Soft Tissue Infection Start: 11-09-2024 End: 12-10-2024 take 3.375 g intravenously every six hours Start: 11-08-2024 End: 11-10-2024 take 3375 mg intravenously every eight hours 3,375 mg, IntraVENous, at 12.5 mL/hr, Administer over 4 Hours, Every 8 hours, First dose on Mon11/08/24 at 2200, premix bag, Suspected Indication (Select all that apply): Skin and Soft Tissue Infection Start: 11-08-2024 End: 11-08-2024 4,500 mg, IntraVENous, at 20 0 mL/hr, Administer over 0.5 Hours, Once, On Mon11/08/24 at 1600, For 1 dose, premix bag, Suspected Indication (Select all that apply): Skin and Soft Tissue Infection Start: 10-10-2024 End: 10-19-2024 take 3.375 g intravenously every six hours Start: 09-13-2024 take 3.375 g intrave nously every six hours 3.375 g, intravenous, Administer over 0.5 Hours, Every 6 hours, First dose on Mon09/13/24 at 2200, premix bag, Dosing of this medication varies based on severity of illness. Does this patient have sepsis or concern for sepsis (probable or documented infection plus systemic manifestations of infection)? No, Suspected Indication (Select all that apply): Cellulitis, Skin and Soft Tissue, Type of Therapy: Empiric, Indications: Cellulitis, Skin and Soft Tissue piperacillin-tazobactam (Zosyn) 4,500 mg in sodium chloride 0.9 % 100 mL IVPB Mini-Bag Plus (4 sources) Start: 09-13-2024 End: 09-13-2024 take 4500 mg intravenously every eight hours 4,500 mg, IntraVENous, at 200 mL/hr, Administer over 0.5 Hours, Every 8 hours, First dose on Mon09/13/24 at 1045, For 4 doses, Mini-Bag Plus bag, Suspected Indication (Select all that apply): Skin and Soft Tissue Infection Start: 09-12-2024 End: 09-12-2024 4,500 mg, IntraVENous, at 20 0 mL/hr, Administer over 0.5 Hours, Once, On Mon09/12/24 at 2105, For 1 dose, Mini-Bag Plus bag, Suspected Indication (Select all that apply): Skin and Soft Tissue Infection polyethylene glycol 3350 [id number] mg powder for oral solution (20 sources) Osmotic Laxative Start: 11-08-2024 End: 11-10-2024 take 1 dose by mouth every twenty-four hours for constipation 17 g, Oral, Daily, First dose (after last modification) on Mon11/08/24 at 2030, 1st line for treatment of constipation - give scheduled if no bowel movement in past 24 hours. Start: 09-17-2024 End: 12-24-2024 polyethylene glycol (Glycola x, Miralax) 17 gram packet Indications: Constipation, unspecified constipation type Take 17 g by mouth once daily. 10/21/2024 Suspended microencapsulated potassium chloride 20 meq extended release oral tablet (4 sources) Start: 11-15-2024 End: 11-15-2024 Start: 11-13-2024 End: 11-13-2024 potassium phosphate 155 mg / sodium phosphate, dibasic 852 mg / sodium phosphate, monobasic 130 mg oral tablet (1 source) Start: 12-14-2024 End: 12-14-2024 sodium chlor-hypochlorous acid (Vashe) 0.033 % irrigation solution (19 sources) sodium chlor-hypochlorous acid (Vashe) 0.033 % irrigation solution Irrigate with as directed 2 times a day. As directed. Suspended 1000 ml sodium chloride 9 mg/ml injection (20 sources) Start: 12-23-2024 End: 12-23-2024 take 100 mL intravenously every hour 100 mL/hr, IntraVENous, Continuous, Starting on Mon12/23/24 at 0945, For 24 hours Start: 12-22-2024 End: 12-22-2024 2,682 mL (30 mL/kg 89.4 kg), IntraVENous, at 1,788 mL/hr, Administer over 1.5 Hours, Once, On Mon12/22/24 at 1230, For 1 dose Start: 12-06-2024 End: 12-06-2024 1,000 mL, IntraVENous, at 1, 000 mL/hr, Administer over 1 Hours, Once, On Mon12/06/24 at 1930, For 1 dose Start: 11-10-2024 End: 11-15-2024 Start: 11-08-2024 End: 11-08-2024 1,000 mL, IntraVENous, at 1, 000 mL/hr, Administer over 1 Hours, Once, On Mon11/08/24 at 1720, For 1 dose Start: 10-13-2024 End: 10-15-2024 Start: 10-10-2024 End: 10-11-2024 Start: 09-12-2024 End: 09-12-2024 1,000 mL, IntraVENous, at 1, 000 mL/hr, Administer over 1 Hours, Once, On Key 09/12/24 at 2110, For 1 dose tiZANidine 2 mg oral tablet (20 sources) Central alpha-2 Adrenergic Agonist Start: 10-11-2024 take 1 tablet by mouth three times daily tiZANidine (Zanaflex) 2 mg tablet Indications: Pain of left lower extremity Take 1 tablet (2 mg) by mouth 3 times a day. 10/21/2024 Suspended vancomycin (Vancocin) 1,000 mg in sodium chloride 0.9 % 250 mL IVPB (2 sources) Start: 11-09-2024 End: 11-10-2024 take 1000 mg intravenously every twelve hours 1,000 mg, IntraVENous, at 166.7 mL/hr, Administer over 90 Minutes, Every 12 hours, First dose on 11/09/24 at 0500, ADD-[place] bag, Suspected Indication (Select all that apply): Skin and Soft Tissue Infection vancomycin 1,000 mg in sodium chloride 0.9 % 250 mL IVPB (6 sources) Start: 11-10-2024 End: 12-24-2024 vancomycin 1,000 mg in sodium chloride 0.9 % 250 mL IVPB Indications: Abscess Infuse 1,000 mg into a venous catheter every 12 hours. 11/10/2024 12/24/2024 Discontinued (Stop taking at discharge) Start: 11-10-2024 vancomycin 1,0 00 mg in sodium chloride 0.9 % 250 mL IVPB Indications: Abscess Infuse 1,000 mg into a venous catheter every 12 hours. 11/10/2024 Active (3 sources) Start: 10-21-2024 End: 11-11-2024 Start: 10-21-2024 Start: 10-19-2024 (2 sources) Start: 11-19-2024 End: 11-19-2024 Start: 10-10-2024 End: 10-10-2024 (3 sources) Start: 11-28-2024 End: 11-28-2025 Start: 11-18-2024 (2 sources) Start: 12-09-2024 End: 12-10-2024 Start: 11-12-2024 End: 11-14-2024 (1 source) Start: 11-12-2024 End: 11-12-2025 (3 sources) Start: 12-16-2024 End: 12-16-2024 Start: 12-16-2024 End: 12-16-2024 Start: 12-16-2024 End: 12-16-2024 (1 source) Start: 12-12-2024 End: 12-12-2024 Problems Active Problems Problem Classification Problem Date Documented Da te Episodic/Chronic Acute and unspecified renal failure (1 source) Acute kidney failure, unspecified; Translations: [Acute kidney failure, unspecified] Onset: 5 Episodic Administrative/social admission (1 source) Patient encounter status; Translations: [Other specified counseling] 09-24-2024 Episodic Chronic kidney disease (20 sources) Chronic renal insufficiency; Translations: [Chronic kidney disease, unspecified] Onset: 5 10-15-2024 Chronic Deficiency and other anemia (1 source) Iron deficiency anemia, unspecified; Translations: [Iron deficiency anemia, unspecified] Onset: 5 Episodic Diseases of white blood cells (1 source) Elevated white blood cell count, unspecified; Translations: [Elevated white blood cell count, unspecified] Onset: 5 Chronic Esophageal disorders (3 sources) Gastroesophageal reflux disease without esophagitis; Translations: [Gastro-esophageal reflux disease without esophagitis] Onset: 5 12-19-2024 Chronic Maintenance chemotherapy; radiotherapy (7 sources) Patient encounter status; Translations: [Encounter for antineoplastic radiation therapy] Onset: 5 01-09-2025 Chronic Malaise and fatigue (1 source) Weakness; Translations: [Weakness] Onset: 5 Episodic Malignant neoplasm without specification of site (3 sources) Squamous cell carcinoma 11-27-2024 Chronic Neoplasms of unspecified nature or uncertain behavior (4 sources) Monoclonal gammopathy of uncertain significance; Translations: [Monoclonal gammopathy] Onset: 5 11-29-2024 Chronic Open wounds of head; neck; and trunk (7 sources) Injury of buttock; Translations: [Unspecified open wound of left buttock, initial encounter] Onset: 4 09-12-2024 Episodic Other aftercare (1 source) Drug therapy finding; Translations: [Other pen[facility] (current) drug therapy] 11-27-2024 Episodic Other connective tissue disease (1 source) Pain in left lower limb; Translations: [Pain in left leg] 10-20-2024 Episodic Other gastrointestinal disorders (3 sources) Constipation; Translations: [Constipation, unspecified] 09-17-2024 Episodic Other gastrointestinal disorders (2 sources) Drug-induced constipation; Translations: [Drug induced constipation] 11-27-2024 Episodic Other nervous system disorders (5 sources) Pain due to neoplastic disease; Translations: [Neoplasm related pain (acute) (chronic)] 11-27-2024 Chronic Other nervous system disorders (2 sources) Neoplasm related pain (acute) (chronic); Translations: [Neoplasm related pain (acute) (chronic)] Onset: 5 Chronic Other nervous system disorders (1 source) Unspecified lack of coordination; Translations: [Unspecified lack of coordination] Onset: 5 Episodic Other non-epithelial cancer of skin (20 sources) Squamous cell carcinoma; Translations: [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, including hip] Onset: 5 11-19-2024 Episodic Other nutritional; endocrine; and metabolic disorders (20 sources) Hypercalcemia; Translations: [Hypercalcemia] Onset: 5 11-29-2024 Chronic Other nutritional; endocrine; and metabolic disorders (1 source) Hypercalcemia; Translations: [Hypercalcemia] Onset: 5 Chronic Other skin disorders (20 sources) Hidradenitis suppurativa; Translations: [Hidradenitis suppurativa] Onset: 4 04-08-2023 Episodic Other skin disorders (1 source) Skin lesion; Translations: [Disorder of the skin and subcutaneous tissue, unspecified] 11-15-2024 Episodic Other skin disorders (2 sources) Hidradenitis suppurativa; Translations: [Hidradenitis suppurativa] Onset: 4 Episodic Other upper respiratory disease (1 source) Rhinitis; Translations: [Chronic rhinitis] 12-19-2024 Chronic Other upper respiratory disease (2 sources) Chronic rhinitis; Translations: [Chronic rhinitis] Onset: 5 Chronic Septicemia (except in labor) (11 sources) Sepsis; Translations: [Sepsis, unspecified organism] Onset: 5 09-12-2024 Episodic Skin and subcutaneous tissue infections (20 sources) Abscess; Translations: [Cutaneous abscess, unspecified] Onset: 4 10-11-2024 Episodic Substance-related disorders (5 sources) Smoker; Translations: [Nicotine dependence, unspecified, uncomplicated] Onset: 09-17-2024 Chronic Unclassified (1 source) Patient encounter status 09-24-2024 Unclassified (2 sources) OTV; Translations: [OTV] Onset: Unclassified (2 sources) WOUND INFECTION\\HYPOTENSIVE Onset: 5 Past or Other Problems Problem Classification Problem Date Documented Da te Episodic/Chronic Bacterial infection; unspecified site (20 sources) Bacteremia caused by Gram-positive bacteria; Translations: [Bacteremia] Onset: 10-10-2024 10-21-2024 Episodic E Codes: Adverse effects of medical drugs (2 sources) Adverse effect of other opioids, initial encounter; Translations: [Adverse effect of other opioids, initial encounter] Onset: 11-10-2024 Episodic Nausea and vomiting (5 sources) Nausea; Translations: [Nausea] Onset: 09-13-2024 09-17-2024 Episodic Nutritional deficiencies (3 sources) Vitamin deficiency; Translations: [Vitamin deficiency, unspecified] Onset: 11-10-2024 11-27-2024 Episodic Other aftercare (2 sources) Other penitentiary (current) drug therapy; Translations: [Other medical terminologist (current) drug therapy] Onset: 11-10-2024 Episodic Other connective tissue disease (2 sources) Pain in left leg; Translations: [Pain in left leg] Onset: 10-10-2024 Episodic Other gastrointestinal disorders (2 sources) Drug induced constipation; Translations: [Drug induced constipation] Onset: 11-10-2024 Episodic Other gastrointestinal disorders (2 sources) Constipation, unspecified; Translations: [Constipation, unspecified] Onset: 09-13-2024 Episodic Other infections; including parasitic (20 sources) Local infection of wound; Translations: [Other injury of unspecified body region, initial encounter] Onset: 09-13-2024 09-17-2024 Episodic Other injuries and conditions due to external causes (2 sources) Other injury of unspecified body region, initial encounter; Translations: [Other injury of unspecified body region, initial encounter] Onset: 09-13-2024 Episodic Other skin disorders (2 sources) Disorder of the skin and subcutaneous tissue, unspecified; Translations: [Disorder of the skin and subcutaneous tissue, unspecified] Onset: 11-10-2024 Episodic Viral infection (4 sources) Viral disease; Translations: [Viral infection, unspecified] Onset: 09-13-2024 09-17-2024 Episodic Results Test Name Value Interpretation Reference Range Facility CBC panel Auto (Bld)on 02-17 Erythrocyte distribution width (RBC) [Ratio] 19.9 % High 11.5-14.5 [facility] Comment on above: Performed By: #### 5 8410-2 ####BHANU Treviño ([id number])[facility] ([facility])[address] [place] [address] Hematocrit (Bld) [Volume fraction] 23.6 % Low 41.0-52.0 [facility] Comment on above: Performed By: #### 5 8410-2 ####BHANU Treviño ([id number])[facility] ([facility])[address] [place] [address] Hemoglobin (Bld) [Mass/Vol] 7.4 g/dL Low 13.5-17.5 [facility] Comment on above: Performed By: #### 5 8410-2 ####BHANU Treviño ([id number])[facility] ([facility])[address] [place] [address] MCH (RBC) [Entitic mass] 24.7 pg Low 26.0-34.0 [facility] Comment on above: Performed By: #### 5 8410-2 ####BHANU Treviño ([id number])[facility] ([facility])[address] [place] [address] MCHC (RBC) [Mass/Vol] 31.4 g/dL Low 32.0-36.0 [facility] Comment on above: Performed By: #### 5 8410-2 ####BHANU Treviño ([id number])[facility] ([facility])[address] [place] [address] MCV (RBC) [Entitic vol] 79 fL Low 80-100 [facility] Comment on above: Performed By: #### 5 8410-2 ####BHANU Treviño ([id number])[facility] ([facility])[address] [place] [address] Nucleated RBC/100 WBC (Bld) [Ratio] 0.0 /100 WBCs Normal 0.0-0.0 [facility] Comment on above: Performed By: #### 5 8410-2 ####BHANU Treviño ([id number])[facility] ([facility])[address] [place] [address] Platelets (Bld) [#/Vol] 819 x10*3/uL High 150-450 [facility] Comment on above: Performed By: #### 5 8410-2 ####BHANU Treviño ([id number])[facility] ([facility])[address] [place] [address] RBC (Bld) [#/Vol] 2.99 x10*6/uL Low 4.50-5.90 [facility] Comment on above: Performed By: #### 5 8410-2 ####BHANU Treviño ([id number])[facility] ([facility])[address] [place] [address] WBC (Bld) [#/Vol] 12.6 x10*3/uL High 4.4-11.3 [facility] Comment on above: Performed By: #### 5 8410-2 ####BHANU Treviño ([id number])[facility] ([facility])[address] [place] [address] Comprehensive metabolic 2000 panelon 02-17-2025 Albumin BCP dye [Mass/Vol] 2.8 g/dL Low 3.4-5.0 [facility] Comment on above: Performed By: #### 2 4323-8 ####BHANU Treviño ([id number])[facility] ([facility])[address] [place] [address] ALP [Catalytic activity/Vol] 173 U/L High 33-120 [facility] Comment on above: Performed By: #### 2 4323-8 ####BHANU Treviño ([id number])[facility] ([facility])[address] [place] [address] ALT With P-5'-P [Catalytic activity/Vol] 26 U/L Normal 10-52 [facility] Comment on above: Result Comment: Sydni ents treated with Sulfasalazine may generate falsely decreased results for ALT. Performed By: #### 2 4323-8 ####BHANU GREGORY L ([id number])[facility] ([facility])[address] [place] [address] Anion gap [Moles/Vol] 15 mmol/L Normal 10-20 [facility] Comment on above: Performed By: #### 2 4323-8 ####BHANU GREGORY L ([id number])[facility] ([facility])[address] [place] [address] AST With P-5'-P [Catalytic activity/Vol] 14 U/L Normal 9-39 [facility] Comment on above: Performed By: #### 2 4323-8 ####BHANU GREGORY L ([id number])[facility] ([facility])[address] [place] [address] Bilirubin [Mass/Vol] 0.3 mg/dL Normal 0.0-1.2 [facility] Comment on above: Performed By: #### 2 4323-8 ####BHANU GREGORY L ([id number])[facility] ([facility])[address] [place] [address] Calcium [Mass/Vol] 8.4 mg/dL Low 8.6-10.6 [facility] Comment on above: Performed By: #### 2 4323-8 ####BHANU FLEMINGMOTZER L ([id number])[facility] ([facility])[address] [place] [address] Chloride [Moles/Vol] 101 mmol/L Normal 98-107 [facility] Comment on above: Performed By: #### 2 4323-8 ####BHANU GREGORY L ([id number])[facility] ([facility])[address] [place] [address] CO2 [Moles/Vol] 27 mmol/L Normal 21-32 [facility] Comment on above: Performed By: #### 2 4323-8 ####BHANU Treviño ([id number])[facility] ([facility])[address] [place] [address] Creatinine [Mass/Vol] 1.23 mg/dL Normal 0.50-1.30 [facility] Comment on above: Performed By: #### 2 4323-8 ####BHANU Treviño ([id number])[facility] ([facility])[address] [place] [address] Glomerular filtration rate/1.73 sq M.predicted 71 mL/min/1.73m*2 Normal >60 [facility] Comment on above: Result Comment: Calc ulations of estimated GFR are performed using the 2020 CKD-EPI Study Refit equation without the race variable for the IDMS-Traceable creatinine methods.https://jasn.asnjournals.org/content/early/ /ASN.7967321877 Performed By: #### 2 4323-8 ####BHANU Treviño ([id number])[facility] ([facility])[address] [place] [address] Glucose [Mass/Vol] 88 mg/dL Normal 74-99 [facility] Comment on above: Performed By: #### 2 4323-8 ####BHANU Treviño ([id number])[facility] ([facility])[address] [place] [address] Potassium [Moles/Vol] 5.1 mmol/L Normal 3.5-5.3 [facility] Comment on above: Performed By: #### 2 4323-8 ####BHANU Treviño ([id number])[facility] ([facility])[address] [place] [address] Protein [Mass/Vol] 6.7 g/dL Normal 6.4-8.2 [facility] Comment on above: Performed By: #### 2 4323-8 ####BHANU Treviño ([id number])[facility] ([facility])[address] [place] [address] Sodium [Moles/Vol] 138 mmol/L Normal 136-145 [facility] Comment on above: Performed By: #### 2 4323-8 ####BHANU Treviño ([id number])[facility] ([facility])[id number] [place] [address] Urea nitrogen [Mass/Vol] 16 mg/dL Normal 6-23 [facility] Comment on above: Performed By: #### 2 4323-8 ####BHANU Treviño ([id number])[facility] ([facility])[address] [place] [address] Magnesiumon 02-17-2025 Magnesium [Mass/Vol] 2.01 mg/dL Normal 1.60-2.40 [facility] Comment on above: Performed By: #### 1 9123-9 ####BHANU Treviño ([id number])[facility] ([facility])[address] [place] [address] CBC panel Auto (Bld)on 02-16 Erythrocyte distribution width (RBC) [Ratio] 19.7 % High 11.5-14.5 [facility] Comment on above: Performed By: #### 5 8410-2 ####BHANU Treviño ([id number])[facility] ([facility])[id number] [place] [address] Hematocrit (Bld) [Volume fraction] 22.1 % Low 41.0-52.0 [facility] Comment on above: Performed By: #### 5 8410-2 ####BHANU Treviño ([id number])[facility] ([facility])[address] [place] [address] Hemoglobin (Bld) [Mass/Vol] 7.1 g/dL Low 13.5-17.5 [facility] Comment on above: Performed By: #### 5 8410-2 ####BHANU Treviño ([id number])[facility] ([facility])[address] [place] [address] MCH (RBC) [Entitic mass] 24.8 pg Low 26.0-34.0 [facility] Comment on above: Performed By: #### 5 8410-2 ####BHANU Treviño ([id number])[facility] ([facility])[address] [place] [address] MCHC (RBC) [Mass/Vol] 32.1 g/dL Normal 32.0-36.0 [facility] Comment on above: Performed By: #### 5 8410-2 ####BHANU Treviño ([id number])[facility] ([facility])[address] [place] [address] MCV (RBC) [Entitic vol] 77 fL Low 80-100 [facility] Comment on above: Performed By: #### 5 8410-2 ####BHANU Treviño ([id number])[facility] ([facility])[address] [place] [address] Nucleated RBC/100 WBC (Bld) [Ratio] 0.0 /100 WBCs Normal 0.0-0.0 [facility] Comment on above: Performed By: #### 5 8410-2 ####BHANU Treviño ([id number])[facility] ([facility])[address] [place] [address] Platelets (Bld) [#/Vol] 758 x10*3/uL High 150-450 [facility] Comment on above: Performed By: #### 5 8410-2 ####BHANU Treviño ([id number])[facility] ([facility])[address] [place] [address] RBC (Bld) [#/Vol] 2.86 x10*6/uL Low 4.50-5.90 [facility] Comment on above: Performed By: #### 5 8410-2 ####BHANU Treviño ([id number])[facility] ([facility])[address] [place] [address] WBC (Bld) [#/Vol] 14.1 x10*3/uL High 4.4-11.3 [facility] Comment on above: Performed By: #### 5 8410-2 ####BHANU Treviño ([id number])[facility] ([facility])[address] [place] [address] Comprehensive metabolic 2000 panelon 02-16-2025 Albumin BCP dye [Mass/Vol] 2.9 g/dL Low 3.4-5.0 [facility] Comment on above: Performed By: #### 2 4323-8 ####BHANU Treviño ([id number])[facility] ([facility])[address] [place] [address] ALP [Catalytic activity/Vol] 157 U/L High 33-120 [facility] Comment on above: Performed By: #### 2 4323-8 ####BHANU Treviño ([id number])[facility] ([facility])[address]65 [place] [address] ALT With P-5'-P [Catalytic activity/Vol] 30 U/L Normal 10-52 [facility] Comment on above: Result Comment: Sydni ents treated with Sulfasalazine may generate falsely decreased results for ALT. Performed By: #### 2 4323-8 ####BHANU Treviño ([id number])[facility] ([facility])[address] [place] [address] Anion gap [Moles/Vol] 13 mmol/L Normal 10-20 [facility] Comment on above: Performed By: #### 2 4323-8 ####BHANU Treviño ([id number])[facility] ([facility])[address] [place] [address] AST With P-5'-P [Catalytic activity/Vol] 16 U/L Normal 9-39 [facility] Comment on above: Performed By: #### 2 4323-8 ####BHANU Treviño ([id number])[facility] ([facility])[address] [place] [address] Bilirubin [Mass/Vol] 0.3 mg/dL Normal 0.0-1.2 [facility] Comment on above: Performed By: #### 2 4323-8 ####BHANU MATOSER L ([id number])[facility] ([facility])[address] [place] [address] Calcium [Mass/Vol] 8.8 mg/dL Normal 8.6-10.6 [facility] Comment on above: Performed By: #### 2 4323-8 ####BHANU LAUREANOTZER L ([id number])[facility] ([facility])[address] [place] [address] Chloride [Moles/Vol] 100 mmol/L Normal 98-107 [facility] Comment on above: Performed By: #### 2 4323-8 ####BHANU LAUREANOTZER L ([id number])[facility] ([facility])[address] [place] [address] CO2 [Moles/Vol] 28 mmol/L Normal 21-32 [facility] Comment on above: Performed By: #### 2 4323-8 ####BHANU MATOSER L ([id number])[facility] ([facility])[address] [place] [address] Creatinine [Mass/Vol] 1.18 mg/dL Normal 0.50-1.30 [facility] Comment on above: Performed By: #### 2 4323-8 ####BHANU LAUREANOTZER L ([id number])[facility] ([facility])[address]25 [place] [address] Glomerular filtration rate/1.73 sq M.predicted 75 mL/min/1.73m*2 Normal >60 [facility] Comment on above: Result Comment: Calc ulations of estimated GFR are performed using the 2020 CKD-EPI Study Refit equation without the race variable for the IDMS-Traceable creatinine methods.https://jasn.asnjournals.org/content/ /ASN.9061584213 Performed By: #### 2 4323-8 ####BHANU Treviño ([id number])[facility] ([facility])[address]199 [place] [address] Glucose [Mass/Vol] 91 mg/dL Normal 74-99 [facility] Comment on above: Performed By: #### 2 4323-8 ####BHANU Treviño (11060)[facility] ([facility])[address]407 [place] [address] Potassium [Moles/Vol] 4.3 mmol/L Normal 3.5-5.3 [facility] Comment on above: Performed By: #### 2 4323-8 ####BHANU Treviño ([id number])[facility] ([facility])[address] [place] [address] Protein [Mass/Vol] 7.3 g/dL Normal 6.4-8.2 [facility] Comment on above: Performed By: #### 2 4323-8 ####BHANU Treviño ([id number])[facility] ([facility])[address]296 [place] [address] Sodium [Moles/Vol] 137 mmol/L Normal 136-145 [facility] Comment on above: Performed By: #### 2 4323-8 ####BHANU Treviño ([id number])[facility] ([facility])[address]440 [place] [address] Urea nitrogen [Mass/Vol] 17 mg/dL Normal 6-23 [facility] Comment on above: Performed By: #### 2 4323-8 ####BHANU Treviño ([id number])[facility] ([facility])[address]429 [place] [address] Magnesiumon 02-16-2025 Magnesium [Mass/Vol] 1.98 mg/dL Normal 1.60-2.40 [facility] Comment on above: Performed By: #### 1 9123-9 ####BHANU Treviño ([id number])[facility] ([facility])[address] [place] [address] CBC panel Auto (Bld)on 02-15 Erythrocyte distribution width (RBC) [Ratio] 20.0 % High 11.5-14.5 [facility] Comment on above: Performed By: #### 5 8410-2 ####BHANU Treviño ([id number])[facility] ([facility])[address] [place] [address] Hematocrit (Bld) [Volume fraction] 23.6 % Low 41.0-52.0 [facility] Comment on above: Performed By: #### 5 8410-2 ####BHANU Treviño ([id number])[facility] ([facility])[address] [place] [address] Hemoglobin (Bld) [Mass/Vol] 7.5 g/dL Low 13.5-17.5 [facility] Comment on above: Performed By: #### 5 8410-2 ####BHANU Treviño ([id number])[facility] ([facility])[address] [place] [address] MCH (RBC) [Entitic mass] 24.4 pg Low 26.0-34.0 [facility] Comment on above: Performed By: #### 5 8410-2 ####BHANU Treviño ([id number])[facility] ([facility])[address] [place] [address] MCHC (RBC) [Mass/Vol] 31.8 g/dL Low 32.0-36.0 [facility] Comment on above: Performed By: #### 5 8410-2 ####BHANU Treviño ([id number])[facility] ([facility])[address] [place] [address] MCV (RBC) [Entitic vol] 77 fL Low 80-100 [facility] Comment on above: Performed By: #### 5 8410-2 ####BHANU Treviño ([id number])[facility] ([facility])[address] [place] [address] Nucleated RBC/100 WBC (Bld) [Ratio] 0.0 /100 WBCs Normal 0.0-0.0 [facility] Comment on above: Performed By: #### 5 8410-2 ####BHANU Treviño ([id number])[facility] ([facility])[address]13 [place] [address] Platelets (Bld) [#/Vol] 673 x10*3/uL High 150-450 [facility] Comment on above: Performed By: #### 5 8410-2 ####BHANU Treviño ([id number])[facility] ([facility])[address] [place] [address] RBC (Bld) [#/Vol] 3.07 x10*6/uL Low 4.50-5.90 [facility] Comment on above: Performed By: #### 5 8410-2 ####BHANU Treviño (72021)[facility] ([facility])[address] [place] [address] WBC (Bld) [#/Vol] 20.2 x10*3/uL High 4.4-11.3 [facility] Comment on above: Performed By: #### 5 8410-2 ####BHANU Trevioñ (79500)[facility] ([facility])[address]405 [place] [address] Comprehensive metabolic 2000 panelon 02-15-2025 Albumin BCP dye [Mass/Vol] 2.6 g/dL Low 3.4-5.0 [facility] Comment on above: Performed By: #### 2 4323-8 ####BHANU Treviño (51132)[facility] ([facility])[address]804 [place] [address] ALP [Catalytic activity/Vol] 160 U/L High 33-120 [facility] Comment on above: Performed By: #### 2 4323-8 ####BHANU Treviño (45081)[facility] ([facility])[address]92 [place] [address] ALT With P-5'-P [Catalytic activity/Vol] 36 U/L Normal 10-52 [facility] Comment on above: Result Comment: Sydni ents treated with Sulfasalazine may generate falsely decreased results for ALT. Performed By: #### 2 4323-8 ####BHANU Treviño ([id number])[facility] ([facility])[address]52 [place] [address] Anion gap [Moles/Vol] 15 mmol/L Normal 10-20 [facility] Comment on above: Performed By: #### 2 4323-8 ####BHANU Treviño ([id number])[facility] ([facility])[address]32 [place] [address] AST With P-5'-P [Catalytic activity/Vol] 23 U/L Normal 9-39 [facility] Comment on above: Performed By: #### 2 4323-8 ####BHANU GREGORY L (85154)[facility] ([facility])[address]317 [place] [address] Bilirubin [Mass/Vol] 0.4 mg/dL Normal 0.0-1.2 [facility] Comment on above: Performed By: #### 2 4323-8 ####BHANU GREGORY L (28932)[facility] ([facility])[address]93 [place] [address] Calcium [Mass/Vol] 8.3 mg/dL Low 8.6-10.6 [facility] Comment on above: Performed By: #### 2 4323-8 ####BHANU FLEMINGMOTZALANNA L ([id number])[facility] ([facility])[address]481 [place] [address] Chloride [Moles/Vol] 100 mmol/L Normal 98-107 [facility] Comment on above: Performed By: #### 2 4323-8 ####BHANU GREGORY L ([id number])[facility] ([facility])[address]573 [place] [address] CO2 [Moles/Vol] 27 mmol/L Normal 21-32 [facility] Comment on above: Performed By: #### 2 4323-8 ####BHANU Treviño ([id number])[facility] ([facility])[address] [place] [address] Creatinine [Mass/Vol] 1.12 mg/dL Normal 0.50-1.30 [facility] Comment on above: Performed By: #### 2 4323-8 ####BHANU Treviño ([id number])[facility] ([facility])[address]07 [place] [address] Glomerular filtration rate/1.73 sq M.predicted 80 mL/min/1.73m*2 Normal >60 [facility] Comment on above: Result Comment: Calc ulations of estimated GFR are performed using the 2020 CKD-EPI Study Refit equation without the race variable for the IDMS-Traceable creatinine methods.https://jasn.asnjournals.org/content/early/ /ASN.1660710193 Performed By: #### 2 4323-8 ####BHANU Treviño ([id number])[facility] ([facility])[address]262 [place] [address] Glucose [Mass/Vol] 102 mg/dL High 74-99 [facility] Comment on above: Performed By: #### 2 4323-8 ####BHANU Treviño ([id number])[facility] ([facility])[address]181 [place] [address] Potassium [Moles/Vol] 5.1 mmol/L Normal 3.5-5.3 [facility] Comment on above: Performed By: #### 2 4323-8 ####BHANU Treviño ([id number])[facility] ([facility])[address]29 [place] [address] Protein [Mass/Vol] 6.5 g/dL Normal 6.4-8.2 [facility] Comment on above: Performed By: #### 2 4323-8 ####BHANU Treviño ([id number])[facility] ([facility])[address]65 [place] [address] Sodium [Moles/Vol] 137 mmol/L Normal 136-145 [facility] Comment on above: Performed By: #### 2 4323-8 ####BHANU Treviño ([id number])[facility] ([facility])[address] [place] [address] Urea nitrogen [Mass/Vol] 16 mg/dL Normal 6-23 [facility] Comment on above: Performed By: #### 2 4323-8 ####BHANU Treviño ([id number])[facility] ([facility])[id number] [place] [address] Magnesiumon 02-15-2025 Magnesium [Mass/Vol] 1.81 mg/dL Normal 1.60-2.40 [facility] Comment on above: Performed By: #### 1 9123-9 ####BHANU Treviño ([id number])[facility] ([facility])[id number] [place] [address] Basic metabolic 2000 panelon 02-13-2025 Anion gap [Moles/Vol] 16 mmol/L Normal 10-20 [facility] Comment on above: Performed By: #### 2 4321-2 ####BHANU Treviño ([id number])[facility] ([facility])[id number] [place] [address] Calcium [Mass/Vol] 8.4 mg/dL Low 8.6-10.6 [facility] Comment on above: Performed By: #### 2 4321-2 ####BHANU Treviño ([id number])[facility] ([facility])[id number] [place] [address] Chloride [Moles/Vol] 103 mmol/L Normal 98-107 [facility] Comment on above: Performed By: #### 2 4321-2 ####BHANU Treviño ([id number])[facility] ([facility])[address] [place] [address] CO2 [Moles/Vol] 28 mmol/L Normal 21-32 [facility] Comment on above: Performed By: #### 2 4321-2 ####BHANU Treviño ([id number])[facility] ([facility])[address] [place] [address] Creatinine [Mass/Vol] 1.22 mg/dL Normal 0.50-1.30 [facility] Comment on above: Performed By: #### 2 4321-2 ####BHANU Treviño ([id number])[facility] ([facility])[address] [place] [address] Glomerular filtration rate/1.73 sq M.predicted 72 mL/min/1.73m*2 Normal >60 [facility] Comment on above: Result Comment: Calc ulations of estimated GFR are performed using the 2020 CKD-EPI Study Refit equation without the race variable for the IDMS-Traceable creatinine methods.https://jasn.asnjournals.org/content/early/ /ASN.3254900844 Performed By: #### 2 4321-2 ####BHANU Treviño ([id number])[facility] ([facility])[address] [place] [address] Glucose [Mass/Vol] 115 mg/dL High 74-99 [facility] Comment on above: Performed By: #### 2 4321-2 ####BHANU Treviño ([id number])[facility] ([facility])[address] [place] [address] Potassium [Moles/Vol] 4.9 mmol/L Normal 3.5-5.3 [facility] Comment on above: Performed By: #### 2 4321-2 ####BHANU Treviño ([id number])[facility] ([facility])[address] [place] [address] Sodium [Moles/Vol] 142 mmol/L Normal 136-145 [facility] Comment on above: Performed By: #### 2 4321-2 ####BHANU Treviño ([id number])[facility] ([facility])[address] [place] [address] Urea nitrogen [Mass/Vol] 16 mg/dL Normal 6-23 [facility] Comment on above: Performed By: #### 2 4321-2 ####BHANU Treviño ([id number])[facility] ([facility])[address] [place] [address] Blood type and Indirect anti body screen panel (Bld)on 02-13-2025 ABO group Nom (Bld) A Normal [facility] Comment on above: Performed By: #### 3 4532-2 ####BHANU Treviño ([id number])[facility] ([facility])[address] [facility] [place] [address] Blood group antibody screen Ql Negative [facility] Comment on above: Performed By: #### 3 4532-2 ####BHANU Treviño ([id number])[facility] ([facility])[address] [address] D Ag Ql (Bld) Positive [facility] Comment on above: Performed By: #### 3 4532-2 ####BHANU Treviño ([id number])[facility] ([facility])[address] [facility] [place] [address] CBC panel Auto (Bld)on 02-13 Erythrocyte distribution width (RBC) [Ratio] 20.1 % High 11.5-14.5 [facility] Comment on above: Performed By: #### 5 8410-2 ####BHANU Treviño ([id number])[facility] ([facility])[address] [place] [address] Hematocrit (Bld) [Volume fraction] 23.1 % Low 41.0-52.0 [facility] Comment on above: Performed By: #### 5 8410-2 ####BHANU Treviño ([id number])[facility] ([facility])[address] [place] [address] Hemoglobin (Bld) [Mass/Vol] 7.4 g/dL Low 13.5-17.5 [facility] Comment on above: Performed By: #### 5 8410-2 ####BHANU Treviño ([id number])[facility] ([facility])[address] [place] [address] MCH (RBC) [Entitic mass] 24.5 pg Low 26.0-34.0 [facility] Comment on above: Performed By: #### 5 8410-2 ####BHANU Treviño ([id number])[facility] ([facility])[address] [place] [address] MCHC (RBC) [Mass/Vol] 32.0 g/dL Normal 32.0-36.0 [facility] Comment on above: Performed By: #### 5 8410-2 ####BHANU Treviño ([id number])[facility] ([facility])[address] [place] [address] MCV (RBC) [Entitic vol] 77 fL Low 80-100 [facility] Comment on above: Performed By: #### 5 8410-2 ####BHANU Treviño ([id number])[facility] ([facility])[address] [place] [address] Nucleated RBC/100 WBC (Bld) [Ratio] 0.0 /100 WBCs Normal 0.0-0.0 [facility] Comment on above: Performed By: #### 5 8410-2 ####BHANU Treviño ([id number])[facility] ([facility])[address] [place] [address] Platelets (Bld) [#/Vol] 664 x10*3/uL High 150-450 [facility] Comment on above: Performed By: #### 5 8410-2 ####BHANU Treviño ([id number])[facility] ([facility])[address] [place] [address] RBC (Bld) [#/Vol] 3.02 x10*6/uL Low 4.50-5.90 [facility] Comment on above: Performed By: #### 5 8410-2 ####BHANU Treviño ([id number])[facility] ([facility])[address] [place] [address] WBC (Bld) [#/Vol] 9.9 x10*3/uL Normal 4.4-11.3 [facility] Comment on above: Performed By: #### 5 8410-2 ####BHANU Treviño ([id number])[facility] ([facility])[address] [place] [address] Magnesiumon 02-13-2025 Magnesium [Mass/Vol] 1.92 mg/dL Normal 1.60-2.40 [facility] Comment on above: Performed By: #### 1 9123-9 ####BHANU Treviño ([id number])[facility] ([facility])[address] [place] [address] PT and aPTT panel Coag (PPP) on 02-13-2025 aPTT Coag (PPP) [Time] 31 s Normal 26-36 [facility] Comment on above: Order Comment: The A PTT is no longer used for monitoring Unfractionated Heparin Therapy. For monitoring Heparin Therapy, use the Heparin Assay. Performed By: #### 3 4529-8 ####BHANU Treviño ([id number])[facility] ([facility])[address] [place] [address] INR Coag (PPP) [Relative time] 1.2 High 0.9-1.1 [facility] Comment on above: Order Comment: The A PTT is no longer used for monitoring Unfractionated Heparin Therapy. For monitoring Heparin Therapy, use the Heparin Assay. Performed By: #### 3 4529-8 ####BHANU Treviño ([id number])[facility] ([facility])[address] [place] [address] PT Coag (PPP) [Time] 12.9 s High 9.8-12.4 [facility] Comment on above: Order Comment: The A PTT is no longer used for monitoring Unfractionated Heparin Therapy. For monitoring Heparin Therapy, use the Heparin Assay. Performed By: #### 3 4529-8 ####BHANU Treviño ([id number])[facility] ([facility])[address] [place] [address] CBC panel Auto (Bld)on 02-12 Erythrocyte distribution width (RBC) [Ratio] 19.8 % High 11.5-14.5 [facility] Comment on above: Performed By: #### 5 8410-2 ####BHANU Treviño ([id number])[facility] ([facility])[address] [place] [address] Hematocrit (Bld) [Volume fraction] 22.9 % Low 41.0-52.0 [facility] Comment on above: Performed By: #### 5 8410-2 ####BHANU Treviño (31184)[facility] ([facility])[address] [place] [address] Hemoglobin (Bld) [Mass/Vol] 7.4 g/dL Low 13.5-17.5 [facility] Comment on above: Performed By: #### 5 8410-2 ####BHANU Treviño ([id number])[facility] ([facility])[address] [place] [address] MCH (RBC) [Entitic mass] 24.6 pg Low 26.0-34.0 [facility] Comment on above: Performed By: #### 5 8410-2 ####BHANU Treviño ([id number])[facility] ([facility])[address] [place] [address] MCHC (RBC) [Mass/Vol] 32.3 g/dL Normal 32.0-36.0 [facility] Comment on above: Performed By: #### 5 8410-2 ####BHANU Treviño ([id number])[facility] ([facility])[address] [place] [address]58[address] MCV (RBC) [Entitic vol] 76 fL Low 80-100 [facility] Comment on above: Performed By: #### 5 8410-2 ####BHANU Treviño ([id number])[facility] ([facility])[address] [place] [address] Nucleated RBC/100 WBC (Bld) [Ratio] 0.0 /100 WBCs Normal 0.0-0.0 [facility] Comment on above: Performed By: #### 5 8410-2 ####BHANU Treviño ([id number])[facility] ([facility])[address]360 [place] [address] Platelets (Bld) [#/Vol] 664 x10*3/uL High 150-450 [facility] Comment on above: Performed By: #### 5 8410-2 ####BHANU Treviño ([id number])[facility] ([facility])[address] [place] [address] RBC (Bld) [#/Vol] 3.01 x10*6/uL Low 4.50-5.90 [facility] Comment on above: Performed By: #### 5 8410-2 ####BHANU Treviño (21902)[facility] ([facility])[address]52 [place] [address] WBC (Bld) [#/Vol] 9.2 x10*3/uL Normal 4.4-11.3 [facility] Comment on above: Performed By: #### 5 8410-2 ####BHANU Treviño ([id number])[facility] ([facility])[address]35 [place] [address] Comprehensive metabolic 2000 panelon 02-12-2025 Albumin BCP dye [Mass/Vol] 2.6 g/dL Low 3.4-5.0 [facility] Comment on above: Performed By: #### 2 4323-8 ####BHANU Treviño ([id number])[facility] ([facility])[address] [place] [address]152 ALP [Catalytic activity/Vol] 107 U/L Normal 33-120 [facility] Comment on above: Performed By: #### 2 4323-8 ####BHANU Treviño ([id number])[facility] ([facility])[address] [place] [address] ALT With P-5'-P [Catalytic activity/Vol] 15 U/L Normal 10-52 [facility] Comment on above: Result Comment: Sydni ents treated with Sulfasalazine may generate falsely decreased results for ALT. Performed By: #### 2 4323-8 ####BHANU Treviño ([id number])[facility] ([facility])[address] [place] [address] Anion gap [Moles/Vol] 14 mmol/L Normal 10-20 [facility] Comment on above: Performed By: #### 2 4323-8 ####BHANU Treviño ([id number])[facility] ([facility])[address]33 [place] [address] AST With P-5'-P [Catalytic activity/Vol] 14 U/L Normal 9-39 [facility] Comment on above: Performed By: #### 2 4323-8 ####BHANU Treviño (84212)[facility] ([facility])[address]1969 [place] [address] Bilirubin [Mass/Vol] 0.3 mg/dL Normal 0.0-1.2 [facility] Comment on above: Performed By: #### 2 4323-8 ####BHANU Treviño (82047)[facility] ([facility])[address]64 [place] [address] Calcium [Mass/Vol] 8.4 mg/dL Low 8.6-10.6 [facility] Comment on above: Performed By: #### 2 4323-8 ####BHANU Treviño ([id number])[facility] ([facility])[address]13 [place] [address] Chloride [Moles/Vol] 101 mmol/L Normal 98-107 [facility] Comment on above: Performed By: #### 2 4323-8 ####BHANU Treviño ([id number])[facility] ([facility])[address]26 [place] [address] CO2 [Moles/Vol] 28 mmol/L Normal 21-32 [facility] Comment on above: Performed By: #### 2 4323-8 ####BHANU Treviño ([id number])[facility] ([facility])[address]93 [place] [address] Creatinine [Mass/Vol] 1.08 mg/dL Normal 0.50-1.30 [facility] Comment on above: Performed By: #### 2 4323-8 ####BHANU Treviño ([id number])[facility] ([facility])[address]79 [place] [address] Glomerular filtration rate/1.73 sq M.predicted 83 mL/min/1.73m*2 Normal >60 [facility] Comment on above: Result Comment: Calc ulations of estimated GFR are performed using the 2020 CKD-EPI Study Refit equation without the race variable for the IDMS-Traceable creatinine methods.https://jasn.asnjournals.org/content/early/ /ASN.1246165277 Performed By: #### 2 4323-8 ####BHANU Treviño (41213)[facility] ([facility])[address]65 [place] [address] Glucose [Mass/Vol] 114 mg/dL High 74-99 [facility] Comment on above: Performed By: #### 2 4323-8 ####BHANU Treviño ([id number])[facility] ([facility])[address]31 [place] [address] Potassium [Moles/Vol] 5.2 mmol/L Normal 3.5-5.3 [facility] Comment on above: Performed By: #### 2 4323-8 ####BHANU Treviño ([id number])[facility] ([facility])[address]01 [place] [address] Protein [Mass/Vol] 7.1 g/dL Normal 6.4-8.2 [facility] Comment on above: Performed By: #### 2 4323-8 ####BHANU Treviño (59962)[facility] ([facility])[address]146 [place] [address] Sodium [Moles/Vol] 138 mmol/L Normal 136-145 [facility] Comment on above: Performed By: #### 2 4323-8 ####BHANU Treviño (04151)[facility] ([facility])[address] [place] [address]861 Urea nitrogen [Mass/Vol] 14 mg/dL Normal 6-23 [facility] Comment on above: Performed By: #### 2 4323-8 ####BHANU Treviño ([id number])[facility] ([facility])[address] [place] [address] 57172 Magnesiumon 02-12-2025 Magnesium [Mass/Vol] 2.03 mg/dL Normal 1.60-2.40 [facility] Comment on above: Performed By: #### 1 9123-9 ####BHANU Treviño (05572)[facility] ([facility])[address] [place] [address] 79504 Basic metabolic 2000 panelon 02-11-2025 Anion gap [Moles/Vol] 14 mmol/L Normal 10-20 [facility] Comment on above: Performed By: #### 2 4321-2 ####BHANU Treviño ([id number])[facility] ([facility])[address] [place] [address]29 Calcium [Mass/Vol] 9.1 mg/dL Normal 8.6-10.6 [facility] Comment on above: Performed By: #### 2 4321-2 ####BHANU Treviño (28919)[facility] ([facility])[address] [place] [address] [place] [address] Chloride [Moles/Vol] 100 mmol/L Normal 98-107 [facility] Comment on above: Performed By: #### 2 4321-2 ####BHANU Treviño (51941)[facility] ([facility])[address] [place] [address] CO2 [Moles/Vol] 29 mmol/L Normal 21-32 [facility] Comment on above: Performed By: #### 2 4321-2 ####BHANU Treviño (82952)[facility] ([facility])[address]605 [place] [address] Creatinine [Mass/Vol] 1.13 mg/dL Normal 0.50-1.30 [facility] Comment on above: Performed By: #### 2 4321-2 ####BHANU Treviño (17594)[facility] ([facility])[address] [place] [address] Glomerular filtration rate/1.73 sq M.predicted 79 mL/min/1.73m*2 Normal >60 [facility] Comment on above: Result Comment: Calc ulations of estimated GFR are performed using the 2020 CKD-EPI Study Refit equation without the race variable for the IDMS-Traceable creatinine methods.https://jasn.asnjournals.org/content/ /ASN.2725413770 Performed By: #### 2 4321-2 ####BHANU Treviño (62653)[facility] ([facility])[address]19 [place] [address] Glucose [Mass/Vol] 108 mg/dL High 74-99 [facility] Comment on above: Performed By: #### 2 4321-2 ####BHANU Treviño (55125)[facility] ([facility])[address]26 [place] [address] Potassium [Moles/Vol] 4.6 mmol/L Normal 3.5-5.3 [facility] Comment on above: Performed By: #### 2 4321-2 ####BHANU Treviño (91933)[facility] ([facility])[address] [place] [address]105 Sodium [Moles/Vol] 138 mmol/L Normal 136-145 [facility] Comment on above: Performed By: #### 2 4321-2 ####BHANU Treviño (72447)[facility] ([facility])[address] [place] [address] 09163 Urea nitrogen [Mass/Vol] 16 mg/dL Normal 6-23 [facility] Comment on above: Performed By: #### 2 4321-2 ####BHANU Treviño ([id number])[facility] ([facility])[address] [place] [address] 23157 CBC panel Auto (Bld)on 02-11 Erythrocyte distribution width (RBC) [Ratio] 20.0 % High 11.5-14.5 [facility] Comment on above: Performed By: #### 5 8410-2 ####BHANU Treviño (41703)[facility] ([facility])[address] [place] [address] 23886 Hematocrit (Bld) [Volume fraction] 24.7 % Low 41.0-52.0 [facility] Comment on above: Performed By: #### 5 8410-2 ####BHANU Treviño (26604)[facility] ([facility])[address] [place] [address] 96427 Hemoglobin (Bld) [Mass/Vol] 8.1 g/dL Low 13.5-17.5 [facility] Comment on above: Performed By: #### 5 8410-2 ####BHANU Treviño (29694)[facility] ([facility])[address] [place] [address] 87187 MCH (RBC) [Entitic mass] 25.1 pg Low 26.0-34.0 [facility] Comment on above: Performed By: #### 5 8410-2 ####BHANU Treviño (59951)[facility] ([facility])[address]11 [place] [address] MCHC (RBC) [Mass/Vol] 32.8 g/dL Normal 32.0-36.0 [facility] Comment on above: Performed By: #### 5 8410-2 ####BHANU Treviño ([id number])[facility] ([facility])[address]80 [place] [address] MCV (RBC) [Entitic vol] 77 fL Low 80-100 [facility] Comment on above: Performed By: #### 5 8410-2 ####BHANU Treviño (55462)[facility] ([facility])[address] [place] [address] 12263 Nucleated RBC/100 WBC (Bld) [Ratio] 0.0 /100 WBCs Normal 0.0-0.0 [facility] Comment on above: Performed By: #### 5 8410-2 ####BHANU Treviño ([id number])[facility] ([facility])[address] [place] [address] 54235 Platelets (Bld) [#/Vol] 667 x10*3/uL High 150-450 [facility] Comment on above: Performed By: #### 5 8410-2 ####BHANU Treviño (09223)[facility] ([facility])[address] [place] [address] 94852 RBC (Bld) [#/Vol] 3.23 x10*6/uL Low 4.50-5.90 [facility] Comment on above: Performed By: #### 5 8410-2 ####BHANU Treviño (66109)[facility] ([facility])[address] [place] [address] 76723 WBC (Bld) [#/Vol] 11.6 x10*3/uL High 4.4-11.3 [facility] Comment on above: Performed By: #### 5 8410-2 ####BHANU Treviño (09237)[facility] ([facility])[address] [place] [address] 20908 Magnesiumon 02-11-2025 Magnesium [Mass/Vol] 1.70 mg/dL Normal 1.60-2.40 [facility] Comment on above: Performed By: #### 1 9123-9 ####BHANU Treviño ([id number])[facility] ([facility])[address] [place] [address] 86912 PT and aPTT panel Coag (PPP) on 02-11-2025 aPTT Coag (PPP) [Time] 35 s Normal 26-36 [facility] Comment on above: Order Comment: The A PTT is no longer used for monitoring Unfractionated Heparin Therapy. For monitoring Heparin Therapy, use the Heparin Assay. Performed By: #### 3 4529-8 ####BHANU Treviño ([id number])[facility] ([facility])[address] [place] [address] 83180 INR Coag (PPP) [Relative time] 1.3 High 0.9-1.1 [facility] Comment on above: Order Comment: The A PTT is no longer used for monitoring Unfractionated Heparin Therapy. For monitoring Heparin Therapy, use the Heparin Assay. Performed By: #### 3 4529-8 ####BHANU Treviño ([id number])[facility] ([facility])[address] [place] [address] 77319 PT Coag (PPP) [Time] 14.2 s High 9.8-12.4 [facility] Comment on above: Order Comment: The A PTT is no longer used for monitoring Unfractionated Heparin Therapy. For monitoring Heparin Therapy, use the Heparin Assay. Performed By: #### 3 4529-8 ####BHANU Treviño ([id number])[facility] ([facility])[address] [place] [address] 28902 Blood type and Indirect anti body screen panel (Bld)on 02-10-2025 ABO group Nom (Bld) A Normal [facility] Comment on above: Performed By: #### 3 4532-2 ####BHANU Treviño ([id number])[facility] [address] Blood group antibody screen Ql Negative [facility] Comment on above: Performed By: #### 3 4532-2 ####BHANU Treviño ([id number])[facility] ([facility])[address] [address] D Ag Ql (Bld) Positive [facility] Comment on above: Performed By: #### 3 4532-2 ####BHANU Treviño ([id number])[facility] ([facility])[address] [address] CBC panel Auto (Bld)on 02-10 Erythrocyte distribution width (RBC) [Ratio] 20.0 % High 11.5-14.5 [facility] Comment on above: Performed By: #### 5 8410-2 ####BHANU Treviño ([id number])[facility] ([facility])[address] [place] [address] Hematocrit (Bld) [Volume fraction] 24.6 % Low 41.0-52.0 [facility] Comment on above: Performed By: #### 5 8410-2 ####BHANU Treviño (26047)[facility] ([facility])[address] [place] [address] Hemoglobin (Bld) [Mass/Vol] 8.0 g/dL Low 13.5-17.5 [facility] Comment on above: Performed By: #### 5 8410-2 ####BHANU Treviño ([id number])[facility] ([facility])[address] [place] [address] MCH (RBC) [Entitic mass] 25.0 pg Low 26.0-34.0 [facility] Comment on above: Performed By: #### 5 8410-2 ####BHANU Treviño ([id number])[facility] ([facility])[address] [place] [address] MCHC (RBC) [Mass/Vol] 32.5 g/dL Normal 32.0-36.0 [facility] Comment on above: Performed By: #### 5 8410-2 ####BHANU Treviño ([id number])[facility] ([facility])[address] [place] [address] MCV (RBC) [Entitic vol] 77 fL Low 80-100 [facility] Comment on above: Performed By: #### 5 8410-2 ####BHANU Treviño ([id number])[facility] ([facility])[id number] [place] [address] Nucleated RBC/100 WBC (Bld) [Ratio] 0.0 /100 WBCs Normal 0.0-0.0 [facility] Comment on above: Performed By: #### 5 8410-2 ####BHANU Treviño ([id number])[facility] ([facility])[address] [place] [address] Platelets (Bld) [#/Vol] 593 x10*3/uL High 150-450 [facility] Comment on above: Performed By: #### 5 8410-2 ####BHANU Treviño ([id number])[facility] ([facility])[id number] [place] [address] RBC (Bld) [#/Vol] 3.20 x10*6/uL Low 4.50-5.90 [facility] Comment on above: Performed By: #### 5 8410-2 ####BHANU Treviño ([id number])[facility] ([facility])[address] [place] [address] WBC (Bld) [#/Vol] 10.6 x10*3/uL Normal 4.4-11.3 [facility] Comment on above: Performed By: #### 5 8410-2 ####BHANU Treviño ([id number])[facility] ([facility])[address] [place] [address] Basic metabolic 2000 panelon 02-08-2025 Anion gap [Moles/Vol] 13 mmol/L Normal 10-20 [facility] Comment on above: Performed By: #### 2 4321-2 ####BHANU Treviño ([id number])[facility] ([facility])[address] [place] [address] Calcium [Mass/Vol] 8.3 mg/dL Low 8.6-10.6 [facility] Comment on above: Performed By: #### 2 4321-2 ####BHANU GREGORY L ([id number])[facility] ([facility])[address] [place] [address] Chloride [Moles/Vol] 105 mmol/L Normal 98-107 [facility] Comment on above: Performed By: #### 2 4321-2 ####BHANU GREGOYR L ([id number])[facility] ([facility])[address]20 [place] [address] CO2 [Moles/Vol] 27 mmol/L Normal 21-32 [facility] Comment on above: Performed By: #### 2 4321-2 ####BHANU Treviño ([id number])[facility] ([facility])[address]68 [place] [address] Creatinine [Mass/Vol] 1.11 mg/dL Normal 0.50-1.30 [facility] Comment on above: Performed By: #### 2 4321-2 ####BHANU Treviño ([id number])[facility] ([facility])[address] [place] [address] Glomerular filtration rate/1.73 sq M.predicted 80 mL/min/1.73m*2 Normal >60 [facility] Comment on above: Result Comment: Calc ulations of estimated GFR are performed using the 2020 CKD-EPI Study Refit equation without the race variable for the IDMS-Traceable creatinine methods.https://jasn.asnjournals.org/content/ /ASN.4406533921 Performed By: #### 2 4321-2 ####BHANU Treviño ([id number])[facility] ([facility])[address]229 [place] [address] Glucose [Mass/Vol] 124 mg/dL High 74-99 [facility] Comment on above: Performed By: #### 2 4321-2 ####BHANU Treviño ([id number])[facility] ([facility])[address]363 [place] [address] Potassium [Moles/Vol] 4.8 mmol/L Normal 3.5-5.3 [facility] Comment on above: Performed By: #### 2 4321-2 ####BHANU Treviño ([id number])[facility] ([facility])[address] [place] [address] Sodium [Moles/Vol] 140 mmol/L Normal 136-145 [facility] Comment on above: Performed By: #### 2 4321-2 ####BHANU Treviño ([id number])[facility] ([facility])[address] [place] [address] Urea nitrogen [Mass/Vol] 16 mg/dL Normal 6-23 [facility] Comment on above: Performed By: #### 2 4321-2 ####BHANU Treviño ([id number])[facility] ([facility])[address] [place] [address] CBC panel Auto (Bld)on 02-08 Erythrocyte distribution width (RBC) [Ratio] 20.5 % High 11.5-14.5 [facility] Comment on above: Performed By: #### 5 8410-2 ####BHANU Treviño ([id number])[facility] ([facility])[address]697 [place] [address] Hematocrit (Bld) [Volume fraction] 25.2 % Low 41.0-52.0 [facility] Comment on above: Performed By: #### 5 8410-2 ####BHANU Treviño (71985)[facility] ([facility])[address] [place] [address] Hemoglobin (Bld) [Mass/Vol] 8.0 g/dL Low 13.5-17.5 [facility] Comment on above: Performed By: #### 5 8410-2 ####BHANU Treviño ([id number])[facility] ([facility])[address] [place] [address] 36719 MCH (RBC) [Entitic mass] 25.1 pg Low 26.0-34.0 [facility] Comment on above: Performed By: #### 5 8410-2 ####BHANU Treviño (51503)[facility] ([facility])[address] [place] [address] 27808 MCHC (RBC) [Mass/Vol] 31.7 g/dL Low 32.0-36.0 [facility] Comment on above: Performed By: #### 5 8410-2 ####BHANU Treviño (43885)[facility] ([facility])[address] [place] [address]5942 MCV (RBC) [Entitic vol] 79 fL Low 80-100 [facility] Comment on above: Performed By: #### 5 8410-2 ####BHANU Treviño ([id number])[facility] ([facility])[address] [place] [address] 71998 Nucleated RBC/100 WBC (Bld) [Ratio] 0.0 /100 WBCs Normal 0.0-0.0 [facility] Comment on above: Performed By: #### 5 8410-2 ####BHANU Treviño ([id number])[facility] ([facility])[address] [place] [address] 22119 Platelets (Bld) [#/Vol] 463 x10*3/uL High 150-450 [facility] Comment on above: Performed By: #### 5 8410-2 ####BHANU Treviño (59500)[facility] ([facility])[address] [place] [address] 72444 RBC (Bld) [#/Vol] 3.19 x10*6/uL Low 4.50-5.90 [facility] Comment on above: Performed By: #### 5 8410-2 ####BHANU Treviño (40034)[facility] ([facility])[address]774 [place] [address] WBC (Bld) [#/Vol] 10.0 x10*3/uL Normal 4.4-11.3 [facility] Comment on above: Performed By: #### 5 8410-2 ####BHANU Treviño (83045)[facility] ([facility])[address]25 [place] [address] Basic metabolic 2000 panelon 02-07-2025 Anion gap [Moles/Vol] 15 mmol/L Normal 10-20 [facility] Comment on above: Performed By: #### 2 4321-2 ####BHANU Treviño ([id number])[facility] ([facility])[address]496 [place] [address] Calcium [Mass/Vol] 8.4 mg/dL Low 8.6-10.6 [facility] Comment on above: Performed By: #### 2 4321-2 ####BHANU Treviño ([id number])[facility] ([facility])[address]192 [place] [address] Chloride [Moles/Vol] 106 mmol/L Normal 98-107 [facility] Comment on above: Performed By: #### 2 4321-2 ####BHANU Treviño ([id number])[facility] ([facility])[address]492 [place] [address] CO2 [Moles/Vol] 24 mmol/L Normal 21-32 [facility] Comment on above: Performed By: #### 2 4321-2 ####BHANU Treviño (94892)[facility] ([facility])[address]37 [place] [address] Creatinine [Mass/Vol] 1.09 mg/dL Normal 0.50-1.30 [facility] Comment on above: Performed By: #### 2 4321-2 ####BHANU Treviño (32159)[facility] ([facility])[address]62 [place] [address] Glomerular filtration rate/1.73 sq M.predicted 82 mL/min/1.73m*2 Normal >60 [facility] Comment on above: Result Comment: Calc ulations of estimated GFR are performed using the 2020 CKD-EPI Study Refit equation without the race variable for the IDMS-Traceable creatinine methods.https://jasn.asnjournals.org/content/early /ASN.9142791103 Performed By: #### 2 4321-2 ####BHANU GREGORY L (23929)[facility] ([facility])[address]336 [place] [address] Glucose [Mass/Vol] 110 mg/dL High 74-99 [facility] Comment on above: Performed By: #### 2 4321-2 ####BHANU GREGORY L ([id number])[facility] ([facility])[address]379 [place] [address] Potassium [Moles/Vol] 4.7 mmol/L Normal 3.5-5.3 [facility] Comment on above: Performed By: #### 2 4321-2 ####BHANU GREGORY L ([id number])[facility] ([facility])[address]32 [place] [address] Sodium [Moles/Vol] 140 mmol/L Normal 136-145 [facility] Comment on above: Performed By: #### 2 4321-2 ####BHANU FLEMINGMOTZALANNA L ([id number])[facility] ([facility])[address]12 [place] [address] Urea nitrogen [Mass/Vol] 18 mg/dL Normal 6-23 [facility] Comment on above: Performed By: #### 2 4321-2 ####BHANU GREGORY L ([id number])[facility] ([facility])[address]66 [place] [address] CBC panel Auto (Bld)on 02-07 Erythrocyte distribution width (RBC) [Ratio] 20.4 % High 11.5-14.5 [facility] Comment on above: Performed By: #### 5 8410-2 ####BHANU Treviño (19972)[facility] ([facility])[address]62 [place] [address] Hematocrit (Bld) [Volume fraction] 27.2 % Low 41.0-52.0 [facility] Comment on above: Performed By: #### 5 8410-2 ####BHANU Treviño (77022)[facility] ([facility])[address]61 [place] [address] Hemoglobin (Bld) [Mass/Vol] 9.0 g/dL Low 13.5-17.5 [facility] Comment on above: Performed By: #### 5 8410-2 ####BHANU Treviño (29469)[facility] ([facility])[address]32 [place] [address] MCH (RBC) [Entitic mass] 25.6 pg Low 26.0-34.0 [facility] Comment on above: Performed By: #### 5 8410-2 ####BHANU Treviño (47243)[facility] ([facility])[address]94 [place] [address] MCHC (RBC) [Mass/Vol] 33.1 g/dL Normal 32.0-36.0 [facility] Comment on above: Performed By: #### 5 8410-2 ####BHANU Treviño ([id number])[facility] ([facility])[address]201 [place] [address] MCV (RBC) [Entitic vol] 77 fL Low 80-100 [facility] Comment on above: Performed By: #### 5 8410-2 ####BHANU Treviño (85843)[facility] ([facility])67754 [place] [address] Nucleated RBC/100 WBC (Bld) [Ratio] 0.0 /100 WBCs Normal 0.0-0.0 [facility] Comment on above: Performed By: #### 5 8410-2 ####BHANU Treviño (75454)[facility] ([facility])[address]03 [place] [address] Platelets (Bld) [#/Vol] 483 x10*3/uL High 150-450 [facility] Comment on above: Performed By: #### 5 8410-2 ####BHANU Treviño (65126)[facility] ([facility])[address] [place] [address] 32296 RBC (Bld) [#/Vol] 3.52 x10*6/uL Low 4.50-5.90 [facility] Comment on above: Performed By: #### 5 8410-2 ####BHANU Treviño (60448)[facility] ([facility])[address] [place] [address] 81084 WBC (Bld) [#/Vol] 9.2 x10*3/uL Normal 4.4-11.3 [facility] Comment on above: Performed By: #### 5 8410-2 ####BHANU Treviño ([id number])[facility] ([facility])[address] [place] [address]30 Magnesiumon 02-07-2025 Magnesium [Mass/Vol] 2.05 mg/dL Normal 1.60-2.40 [facility] Comment on above: Performed By: #### 1 9123-9 ####BHANU Treviño ([id number])[facility] ([facility])[address]020 [place] [address] Basic metabolic 2000 panelon 02-06-2025 Anion gap [Moles/Vol] 12 mmol/L Normal 10-20 [facility] Comment on above: Performed By: #### 2 4321-2 ####BHANU Treviño (34490)[facility] ([facility])07440 [place] [address] Calcium [Mass/Vol] 8.1 mg/dL Low 8.6-10.6 [facility] Comment on above: Performed By: #### 2 4321-2 ####BHANU Treviño (87934)[facility] ([facility])[address]10 [place] [address] Chloride [Moles/Vol] 106 mmol/L Normal 98-107 [facility] Comment on above: Performed By: #### 2 4321-2 ####BHANU Treviño ([id number])[facility] ([facility])[address]291 [place] [address] CO2 [Moles/Vol] 28 mmol/L Normal 21-32 [facility] Comment on above: Performed By: #### 2 4321-2 ####BHANU Treviño (45296)[facility] ([facility])47349 [place] [address] Creatinine [Mass/Vol] 1.22 mg/dL Normal 0.50-1.30 [facility] Comment on above: Performed By: #### 2 4321-2 ####BHANU Treviño (52883)[facility] ([facility])18232 [place] [address] Glomerular filtration rate/1.73 sq M.predicted 72 mL/min/1.73m*2 Normal >60 [facility] Comment on above: Result Comment: Calc ulations of estimated GFR are performed using the 2020 CKD-EPI Study Refit equation without the race variable for the IDMS-Traceable creatinine methods.https://jasn.asnjournals.org/content/early/ /ASN.3063570455 Performed By: #### 2 4321-2 ####BHANU Treviño ([id number])[facility] ([facility])47143 [place] [address] Glucose [Mass/Vol] 98 mg/dL Normal 74-99 [facility] Comment on above: Performed By: #### 2 4321-2 ####BHANU Treviño (77426)[facility] ([facility])54469 [place] [address] Potassium [Moles/Vol] 4.5 mmol/L Normal 3.5-5.3 [facility] Comment on above: Performed By: #### 2 4321-2 ####BHANU Treviño (65036)[facility] ([facility])78179 [place] [address] Sodium [Moles/Vol] 141 mmol/L Normal 136-145 [facility] Comment on above: Performed By: #### 2 4321-2 ####BHANU Treviño (68499)[facility] ([facility])[address] [place] [address] 03497 Urea nitrogen [Mass/Vol] 15 mg/dL Normal 6-23 [facility] Comment on above: Performed By: #### 2 4321-2 ####BHANU Treviño (71841)[facility] ([facility])[address] [place] [address] 64438 CBC panel Auto (Bld)on 02-06 Erythrocyte distribution width (RBC) [Ratio] 20.2 % High 11.5-14.5 [facility] Comment on above: Performed By: #### 5 8410-2 ####BHANU Treviño (53750)[facility] ([facility])[address]10 [place] [address] Hematocrit (Bld) [Volume fraction] 26.1 % Low 41.0-52.0 [facility] Comment on above: Performed By: #### 5 8410-2 ####BHANU GREGORY L (73001)[facility] ([facility])[address]1487 [place] [address] Hemoglobin (Bld) [Mass/Vol] 8.4 g/dL Low 13.5-17.5 [facility] Comment on above: Performed By: #### 5 8410-2 ####BHANU Treviño (12833)[facility] ([facility])[address] [place] [address] 91608 MCH (RBC) [Entitic mass] 25.1 pg Low 26.0-34.0 [facility] Comment on above: Performed By: #### 5 8410-2 ####BHANU Treviño (26915)[facility] ([facility])20323 [place] [address] MCHC (RBC) [Mass/Vol] 32.2 g/dL Normal 32.0-36.0 [facility] Comment on above: Performed By: #### 5 8410-2 ####BHANU Treviño (96377)[facility] ([facility])35088 [place] [address] MCV (RBC) [Entitic vol] 78 fL Low 80-100 [facility] Comment on above: Performed By: #### 5 8410-2 ####BHANU Treviño ([id number])[facility] ([facility])64894 [place] [address] Nucleated RBC/100 WBC (Bld) [Ratio] 0.0 /100 WBCs Normal 0.0-0.0 [facility] Comment on above: Performed By: #### 5 8410-2 ####BHANU Treviño (07101)[facility] ([facility])05600 [place] [address] Platelets (Bld) [#/Vol] 426 x10*3/uL Normal 150-450 [facility] Comment on above: Performed By: #### 5 8410-2 ####BHANU Treviño (05653)[facility] ([facility])79878 [place] [address] RBC (Bld) [#/Vol] 3.34 x10*6/uL Low 4.50-5.90 [facility] Comment on above: Performed By: #### 5 8410-2 ####BHANU Treviño (61048)[facility] ([facility])83063 [place] [address] WBC (Bld) [#/Vol] 9.4 x10*3/uL Normal 4.4-11.3 [facility] Comment on above: Performed By: #### 5 8410-2 ####BHANU Treviño (13589)[facility] ([facility])[address] [place] [address] 61767 Magnesiumon 02-06-2025 Magnesium [Mass/Vol] 2.21 mg/dL Normal 1.60-2.40 [facility] Comment on above: Performed By: #### 1 9123-9 ####BHANU Treviño (14874)[facility] ([facility])[address] [place] [address] 17205 CBC panel Auto (Bld)on 02-05 Erythrocyte distribution width (RBC) [Ratio] 19.9 % High 11.5-14.5 [facility] Comment on above: Performed By: #### 5 8410-2 ####BHANU Treviño (04974)[facility] ([facility])[address] [place] [address] 36208 Hematocrit (Bld) [Volume fraction] 26.4 % Low 41.0-52.0 [facility] Comment on above: Performed By: #### 5 8410-2 ####BHANU Treviño (68522)[facility] ([facility])[address] [place] [address] 45530 Hemoglobin (Bld) [Mass/Vol] 8.4 g/dL Low 13.5-17.5 [facility] Comment on above: Performed By: #### 5 8410-2 ####BHANU Treviño (57630)[facility] ([facility])[address] [place] [address] 89484 MCH (RBC) [Entitic mass] 24.6 pg Low 26.0-34.0 [facility] Comment on above: Performed By: #### 5 8410-2 ####BHANU Treviño (38429)[facility] ([facility])[address] [place] [address] 90724 MCHC (RBC) [Mass/Vol] 31.8 g/dL Low 32.0-36.0 [facility] Comment on above: Performed By: #### 5 8410-2 ####BHANU Treviño (57684)[facility] ([facility])69367 [place] [address] MCV (RBC) [Entitic vol] 77 fL Low 80-100 [facility] Comment on above: Performed By: #### 5 8410-2 ####BHANU Treviño (17053)[facility] ([facility])00052 [place] [address] Nucleated RBC/100 WBC (Bld) [Ratio] 0.0 /100 WBCs Normal 0.0-0.0 [facility] Comment on above: Performed By: #### 5 8410-2 ####BHANU Treviño (29739)[facility] ([facility])78207 [place] [address] Platelets (Bld) [#/Vol] 399 x10*3/uL Normal 150-450 [facility] Comment on above: Performed By: #### 5 8410-2 ####BHANU Treviño (67786)[facility] ([facility])[address] [place] [address] 75308 RBC (Bld) [#/Vol] 3.41 x10*6/uL Low 4.50-5.90 [facility] Comment on above: Performed By: #### 5 8410-2 ####BHANU Treviño (74501)[facility] ([facility])[address]9945 [place] [address] WBC (Bld) [#/Vol] 10.1 x10*3/uL Normal 4.4-11.3 [facility] Comment on above: Performed By: #### 5 8410-2 ####BHANU Treviño ([id number])[facility] ([facility])53867 [place] [address] Magnesiumon 02-05-2025 Magnesium [Mass/Vol] 1.87 mg/dL Normal 1.60-2.40 [facility] Comment on above: Performed By: #### 1 9123-9 ####BHANU Treviño (90335)[facility] ([facility])[address]77 [place] [address] Renal function 2000 panelon 02-05-2025 Albumin BCP dye [Mass/Vol] 2.6 g/dL Low 3.4-5.0 [facility] Comment on above: Performed By: #### 2 4362-6 ####BHANU Treviño (78713)[facility] ([facility])12497 [place] [address] Anion gap [Moles/Vol] 13 mmol/L Normal 10-20 [facility] Comment on above: Performed By: #### 2 4362-6 ####BHANU Treviño (27251)[facility] ([facility])02887 [place] [address] Calcium [Mass/Vol] 7.7 mg/dL Low 8.6-10.6 [facility] Comment on above: Performed By: #### 2 4362-6 ####BHANU Treviño (41791)[facility] ([facility])18545 [place] [address] Chloride [Moles/Vol] 107 mmol/L Normal 98-107 [facility] Comment on above: Performed By: #### 2 4362-6 ####BHANU Treviño (85087)[facility] ([facility])23186 [place] [address] CO2 [Moles/Vol] 26 mmol/L Normal 21-32 [facility] Comment on above: Performed By: #### 2 4362-6 ####BHANU Treviño (98512)[facility] ([facility])90332 [place] [address] Creatinine [Mass/Vol] 1.02 mg/dL Normal 0.50-1.30 [facility] Comment on above: Performed By: #### 2 4362-6 ####BHANU Treviño (64081)[facility] ([facility])09507 [place] [address] Glomerular filtration rate/1.73 sq M.predicted 89 mL/min/1.73m*2 Normal >60 [facility] Comment on above: Result Comment: Calc ulations of estimated GFR are performed using the 2020 CKD-EPI Study Refit equation without the race variable for the IDMS-Traceable creatinine methods.https://jasn.asnjournals.org/content/early /ASN.7601933353 Performed By: #### 2 4362-6 ####BHANU GREGORY L (80790)[facility] ([facility])[address]3983 [place] [address] Glucose [Mass/Vol] 94 mg/dL Normal 74-99 [facility] Comment on above: Performed By: #### 2 4362-6 ####BHANU GREGORY L ([id number])[facility] ([facility])[address]8422 [place] [address] Phosphate [Mass/Vol] 2.8 mg/dL Normal 2.5-4.9 [facility] Comment on above: Performed By: #### 2 4362-6 ####BHANU GREGORY L (92791)[facility] ([facility])[address] [place] [address] Potassium [Moles/Vol] 4.4 mmol/L Normal 3.5-5.3 [facility] Comment on above: Performed By: #### 2 4362-6 ####BHANU FLEMINGMOTZER L ([id number])[facility] ([facility])[address] [place] [address] Sodium [Moles/Vol] 142 mmol/L Normal 136-145 [facility] Comment on above: Performed By: #### 2 4362-6 ####BHANU GREGORY L ([id number])[facility] ([facility])[address] [place] [address] Urea nitrogen [Mass/Vol] 13 mg/dL Normal 6- [facility] Comment on above: Performed By: #### 2 4362-6 ####BHANU Treviño ([id number])[facility] ([facility])[address] [place] [address] Bacteria identifiedon 2024 Bacteria identified Cx Nom (Unsp spec) Abnormal [facility] Comment on above: Performed By: #### 6 463-4 ####BHANU Treviño ([id number])[facility] ([facility])[address] [place] [address] Blood type and Indirect anti body screen panel (Bld)on 02-04-2025 ABO group Nom (Bld) A Normal [facility] Comment on above: Performed By: #### 3 4532-2 ####BHANU Treviño ([id number])[facility] ([facility])[address] [place] [address] Blood group antibody screen Ql Negative Normal [facility] Comment on above: Performed By: #### 3 4532-2 ####BHANU Treviño ([id number])[facility] ([facility])[address] [place] [address] D Ag Ql (Bld) Positive Normal [facility] Comment on above: Performed By: #### 3 4532-2 ####BHANU Treviño ([id number])[facility] ([facility])[address] [place] [address] CBC panel Auto (Bld)on 02-04 Erythrocyte distribution width (RBC) [Ratio] 19.6 % High 11.5-14.5 [facility] Comment on above: Performed By: #### 5 8410-2 ####BHANU Treviño ([id number])[facility] ([facility])[address] [place] [address] Hematocrit (Bld) [Volume fraction] 28.8 % Low 41.0-52.0 [facility] Comment on above: Performed By: #### 5 8410-2 ####BHANU Treviño ([id number])[facility] [facility] ([facility])[address] [place] [address] Hemoglobin (Bld) [Mass/Vol] 9.1 g/dL Low 13.5-17.5 [facility] Comment on above: Performed By: #### 5 8410-2 ####BHANU Treviño ([id number])[facility] ([facility])[address] [place] [address] MCH (RBC) [Entitic mass] 24.6 pg Low 26.0-34.0 [facility] Comment on above: Performed By: #### 5 8410-2 ####BHANU Treviño ([id number])[facility] ([facility])[address] [place] [address] MCHC (RBC) [Mass/Vol] 31.6 g/dL Low 32.0-36.0 [facility] Comment on above: Performed By: #### 5 8410-2 ####BHANU Treviño ([id number])[facility] ([facility])[address] [place] [address] MCV (RBC) [Entitic vol] 78 fL Low 80-100 [facility] Comment on above: Performed By: #### 5 8410-2 ####BHANU Treviño ([id number])[facility] ([facility])[address] [place] [address] 49441 Nucleated RBC/100 WBC (Bld) [Ratio] 0.0 /100 WBCs Normal 0.0-0.0 [facility] Comment on above: Performed By: #### 5 8410-2 ####BHANU Treviño ([id number])[facility] ([facility])[address] [place] [address] 634[address] Platelets (Bld) [#/Vol] 430 x10*3/uL Normal 150-450 [facility] Comment on above: Performed By: #### 5 8410-2 ####BHANU Treviño ([id number])[facility] ([facility])[address] [place] [address] RBC (Bld) [#/Vol] 3.70 x10*6/uL Low 4.50-5.90 [facility] Comment on above: Performed By: #### 5 8410-2 ####BHANU Treviño ([id number])[facility] ([facility])[address] [place] [address] WBC (Bld) [#/Vol] 10.7 x10*3/uL Normal 4.4-11.3 [facility] Comment on above: Performed By: #### 5 8410-2 ####BHANU Treviño ([id number])[facility] ([facility])[address] [place] [address] Fungus identifiedon 02-05-20 Fungus identified Cx Nom (Unsp spec) Abnormal [facility] Comment on above: Performed By: #### 5 80-1 ####BHANU Treviño ([id number])[facility] ([facility])[address] [place] [address] 48897 Magnesiumon 02-04-2025 Magnesium [Mass/Vol] 1.84 mg/dL Normal 1.60-2.40 [facility] Comment on above: Performed By: #### 1 9123-9 ####BHANU Treviño ([id number])[facility] ([facility])[address] [place] [address] PT and aPTT panel Coag (PPP) on 02-04-2025 aPTT Coag (PPP) [Time] 33 s Normal 26-36 [facility] Comment on above: Order Comment: The A PTT is no longer used for monitoring Unfractionated Heparin Therapy. For monitoring Heparin Therapy, use the Heparin Assay. Performed By: #### 3 4529-8 ####BHANU Treviño ([id number])[facility] ([facility])[address] [place] [address] 42295 INR Coag (PPP) [Relative time] 1.2 High 0.9-1.1 [facility] Comment on above: Order Comment: The A PTT is no longer used for monitoring Unfractionated Heparin Therapy. For monitoring Heparin Therapy, use the Heparin Assay. Performed By: #### 3 4529-8 ####BHANU Treviño ([id number])[facility] ([facility])[id number] [place] [address] 48165 PT Coag (PPP) [Time] 13.4 s High 9.8-12.4 [facility] Comment on above: Order Comment: The A PTT is no longer used for monitoring Unfractionated Heparin Therapy. For monitoring Heparin Therapy, use the Heparin Assay. Performed By: #### 3 4529-8 ####BHANU Treviño ([id number])[facility] ([facility])[address] [place] [address] 13658 Renal function 2000 panelon 02-04-2025 Albumin BCP dye [Mass/Vol] 2.5 g/dL Low 3.4-5.0 [facility] Comment on above: Performed By: #### 2 4362-6 ####BHANU Treviño ([id number])[facility] ([facility])[address] [place] [address] 29152 Anion gap [Moles/Vol] 11 mmol/L Normal 10-20 [facility] Comment on above: Performed By: #### 2 4362-6 ####BHANU Treviño ([id number])[facility] ([facility])[address] [place] [address] 86274 Calcium [Mass/Vol] 8.2 mg/dL Low 8.6-10.6 [facility] Comment on above: Performed By: #### 2 4362-6 ####BHANU GREGORY L ([id number])[facility] ([facility])[address] [place] [address] 83633 Chloride [Moles/Vol] 107 mmol/L Normal 98-107 [facility] Comment on above: Performed By: #### 2 4362-6 ####BHANU GREGORY L (74075)[facility] ([facility])[address] [place] [address] CO2 [Moles/Vol] 28 mmol/L Normal 21-32 [facility] Comment on above: Performed By: #### 2 4362-6 ####BHANU Treviño ([id number])[facility] ([facility])[address] [place] [address] Creatinine [Mass/Vol] 1.23 mg/dL Normal 0.50-1.30 [facility] Comment on above: Performed By: #### 2 4362-6 ####BHANU Treviño ([id number])[facility] ([facility])[address] [place] [address] Glomerular filtration rate/1.73 sq M.predicted 71 mL/min/1.73m*2 Normal >60 [facility] Comment on above: Result Comment: Calc ulations of estimated GFR are performed using the 2020 CKD-EPI Study Refit equation without the race variable for the IDMS-Traceable creatinine methods.https://jasn.asnjournals.org/content/early/ /ASN.6170597479 Performed By: #### 2 4362-6 ####BHANU Treviño ([id number])[facility] ([facility])[address] [place] [address] Glucose [Mass/Vol] 108 mg/dL High 74-99 [facility] Comment on above: Performed By: #### 2 4362-6 ####BHANU Treviño ([id number])[facility] ([facility])[address] [place] [address] Phosphate [Mass/Vol] 2.1 mg/dL Low 2.5-4.9 [facility] Comment on above: Performed By: #### 2 4362-6 ####BHANU Treviño ([id number])[facility] ([facility])[address] [place] [address] Potassium [Moles/Vol] 4.3 mmol/L Normal 3.5-5.3 [facility] Comment on above: Performed By: #### 2 4362-6 ####BHANU Treviño ([id number])[facility] ([facility])[address] [place] [address] 17944 Sodium [Moles/Vol] 142 mmol/L Normal 136-145 [facility] Comment on above: Performed By: #### 2 4362-6 ####BHANU Treviño ([id number])[facility] ([facility])[address] [place] [address] 76763 Urea nitrogen [Mass/Vol] 15 mg/dL Normal 6-23 [facility] Comment on above: Performed By: #### 2 4362-6 ####BHANU Treviño ([id number])[facility] ([facility])[address] [place] [address] 10679 CBC W Auto Differential pane l (Bld)on 02-03-2025 Basophils (Bld) [#/Vol] 0.05 x10*3/uL Normal 0.00-0.10 [facility] Comment on above: Performed By: #### 5 7021-8 ####BHANU Treviño ([id number])[facility] ([facility])[address] [place] [address] 36531 Basophils/100 WBC (Bld) 0.7 % Normal 0.0-2.0 [facility] Comment on above: Performed By: #### 5 7021-8 ####BHANU Treviño ([id number])[facility] ([facility])[address] [place] [address] 55276 Eosinophils (Bld) [#/Vol] 0.55 x10*3/uL Normal 0.00-0.70 [facility] Comment on above: Performed By: #### 5 7021-8 ####BHANU GREGORY L ([id number])[facility] ([facility])[address] [place] [address] 22199 Eosinophils/100 WBC (Bld) 7.4 % Normal 0.0-6.0 [facility] Comment on above: Performed By: #### 5 7021-8 ####BHANU GREGORY L ([id number])[facility] ([facility])[address] [place] [address] 29417 Erythrocyte distribution width (RBC) [Ratio] 20.0 % High 11.5-14.5 [facility] Comment on above: Performed By: #### 5 7021-8 ####BHANU MATOSER L ([id number])[facility] ([facility])[address] [place] [address] 23414 Hematocrit (Bld) [Volume fraction] 25.4 % Low 41.0-52.0 [facility] Comment on above: Performed By: #### 5 7021-8 ####BHANU GREGORY L ([id number])[facility] ([facility])[address] [place] [address] 83535 Hemoglobin (Bld) [Mass/Vol] 8.0 g/dL Low 13.5-17.5 [facility] Comment on above: Performed By: #### 5 7021-8 ####BHANU GREGORY L ([id number])[facility] ([facility])[address] [place] [address] 21647 Immature granulocytes (Bld) [#/Vol] 0.03 x10*3/uL Normal 0.00-0.70 [facility] Comment on above: Performed By: #### 5 7021-8 ####BHANU GREGORY L ([id number])[facility] ([facility])[address] [place] [address] 52829 Immature granulocytes/100 WBC (Bld) 0.4 % Normal 0.0-0.9 [facility] Comment on above: Result Comment: Christine ture Granulocyte Count (IG) includes promyelocytes, myelocytes and metamyelocytes but does not include bands. Percent differential counts (%) should be interpreted in the context of the absolute cell counts (cells/UL). Performed By: #### 5 7021-8 ####BHANU FLEMINGMOTZALANNA L ([id number])[facility] ([facility])[address] [place] [address] 11131 Lymphocytes (Bld) [#/Vol] 1.37 x10*3/uL Normal 1.20-4.80 [facility] Comment on above: Performed By: #### 5 7021-8 ####BHANU Treviño ([id number])[facility] ([facility])[address] [place] [address] Lymphocytes/100 WBC (Bld) 18.4 % Normal 13.0-44.0 [facility] Comment on above: Performed By: #### 5 7021-8 ####BHANU Treviño ([id number])[facility] ([facility])[address] [place] [address] MCH (RBC) [Entitic mass] 24.2 pg Low 26.0-34.0 [facility] Comment on above: Performed By: #### 5 7021-8 ####BHANU Treviño ([id number])[facility] ([facility])[address] [place] [address] MCHC (RBC) [Mass/Vol] 31.5 g/dL Low 32.0-36.0 [facility] Comment on above: Performed By: #### 5 7021-8 ####BHANU Treviño ([id number])[facility] ([facility])[address] [place] [address] MCV (RBC) [Entitic vol] 77 fL Low 80-100 [facility] Comment on above: Performed By: #### 5 7021-8 ####BHANU Treviño ([id number])[facility] ([facility])[address] [place] [address] Monocytes (Bld) [#/Vol] 0.67 x10*3/uL Normal 0.10-1.00 [facility] Comment on above: Performed By: #### 5 7021-8 ####BHANU Treviño ([id number])[facility] ([facility])[address] [place] [address] Monocytes/100 WBC (Bld) 9.0 % Normal 2.0-10.0 [facility] Comment on above: Performed By: #### 5 7021-8 ####BHANU Treviño ([id number])[facility] ([facility])[address] [place] [address] Neutrophils (Bld) [#/Vol] 4.77 x10*3/uL Normal 1.20-7.70 [facility] Comment on above: Result Comment: Perc ent differential counts (%) should be interpreted in the context of the absolute cell counts (cells/uL). Performed By: #### 5 7021-8 ####BHANU GREGORY L (48819)[facility] ([facility])[address] [place] [address] Neutrophils/100 WBC (Bld) 64.1 % Normal 40.0-80.0 [facility] Comment on above: Performed By: #### 5 7021-8 ####BHANU GREGORY L (02139)[facility] ([facility])[address] [place] [address] Nucleated RBC/100 WBC (Bld) [Ratio] 0.0 /100 WBCs Normal 0.0-0.0 [facility] Comment on above: Performed By: #### 5 7021-8 ####BHANU GREGORY L (47596)[facility] ([facility])[address] [place] [address] Platelets (Bld) [#/Vol] 407 x10*3/uL Normal 150-450 [facility] Comment on above: Performed By: #### 5 7021-8 ####BHANU FLEMINGMOTZALANNA L ([id number])[facility] ([facility])[address]83 [place] [address] RBC (Bld) [#/Vol] 3.31 x10*6/uL Low 4.50-5.90 [facility] Comment on above: Performed By: #### 5 7021-8 ####BHANU FLEMINGMOTZALANNA L ([id number])[facility] ([facility])[address]83 [place] [address] WBC (Bld) [#/Vol] 7.4 x10*3/uL Normal 4.4-11.3 [facility] Comment on above: Performed By: #### 5 7021-8 ####BHANU Treviño ([id number])[facility] ([facility])[address]194 [place] [address] Glucose Test strip manual (B ld) [Mass/Vol]on 02-03-2025 Glucose [Mass/Vol] 102 mg/dL High 74-99 [facility] Comment on above: Performed By: #### 2 341-6 ####BHANU Treviño ([id number])[facility] ([facility])[address] [place] [address] 89105 Renal function 2000 panelon 02-03-2025 Albumin BCP dye [Mass/Vol] 2.4 g/dL Low 3.4-5.0 [facility] Comment on above: Performed By: #### 2 4362-6 ####BHANU Treviño ([id number])[facility] ([facility])[address] [place] [address] 63184 Anion gap [Moles/Vol] 10 mmol/L Normal 10-20 [facility] Comment on above: Performed By: #### 2 4362-6 ####BHANU Treviño ([id number])[facility] ([facility])[address] [place] [address] Calcium [Mass/Vol] 7.8 mg/dL Low 8.6-10.6 [facility] Comment on above: Performed By: #### 2 4362-6 ####BHANU Treviño (06280)[facility] ([facility])[address]15 [place] [address] Chloride [Moles/Vol] 107 mmol/L Normal 98-107 [facility] Comment on above: Performed By: #### 2 4362-6 ####BHANU Treviño (47233)[facility] ([facility])[address] [place] [address] CO2 [Moles/Vol] 30 mmol/L Normal 21-32 [facility] Comment on above: Performed By: #### 2 4362-6 ####BHANU Treviño ([id number])[facility] ([facility])[address] [place] [address] Creatinine [Mass/Vol] 1.10 mg/dL Normal 0.50-1.30 [facility] Comment on above: Performed By: #### 2 4362-6 ####BHANU Treviño ([id number])[facility] ([facility])[address]995 [place] [address] Glomerular filtration rate/1.73 sq M.predicted 81 mL/min/1.73m*2 Normal >60 [facility] Comment on above: Result Comment: Calc ulations of estimated GFR are performed using the 2020 CKD-EPI Study Refit equation without the race variable for the IDMS-Traceable creatinine methods.https://jasn.asnjournals.org/content/ /ASN.6318646758 Performed By: #### 2 4362-6 ####BHANU Treviño ([id number])[facility] ([facility])[address]45 [place] [address] Glucose [Mass/Vol] 94 mg/dL Normal 74-99 [facility] Comment on above: Performed By: #### 2 4362-6 ####BHANU Treviño (94773)[facility] ([facility])[address]57 [place] [address] Phosphate [Mass/Vol] 2.9 mg/dL Normal 2.5-4.9 [facility] Comment on above: Performed By: #### 2 4362-6 ####BHANU Treviño ([id number])[facility] ([facility])[address]285 [place] [address] Potassium [Moles/Vol] 4.9 mmol/L Normal 3.5-5.3 [facility] Comment on above: Performed By: #### 2 4362-6 ####BHANU Treviño ([id number])[facility] ([facility])[address]162 [place] [address] Sodium [Moles/Vol] 142 mmol/L Normal 136-145 [facility] Comment on above: Performed By: #### 2 4362-6 ####BHANU Treviño (96876)[facility] ([facility])[address]92 [place] [address] Urea nitrogen [Mass/Vol] 15 mg/dL Normal 6-23 [facility] Comment on above: Performed By: #### 2 4362-6 ####BHANU Treviño ([id number])[facility] ([facility])[address]673 [place] [address] CBC W Auto Differential pane l (Bld)on 02-02-2025 Basophils (Bld) [#/Vol] 0.05 x10*3/uL Normal 0.00-0.10 [facility] Comment on above: Performed By: #### 5 7021-8 ####BHANU Treviño ([id number])[facility] ([facility])[address]97 [place] [address] Basophils/100 WBC (Bld) 0.9 % Normal 0.0-2.0 [facility] Comment on above: Performed By: #### 5 7021-8 ####BHANU Treviño ([id number])[facility] ([facility])[address]16 [place] [address] Eosinophils (Bld) [#/Vol] 0.51 x10*3/uL Normal 0.00-0.70 [facility] Comment on above: Performed By: #### 5 7021-8 ####BHANU GREGORY L (78924)[facility] ([facility])[address]11 [place] [address] Eosinophils/100 WBC (Bld) 9.2 % Normal 0.0-6.0 [facility] Comment on above: Performed By: #### 5 7021-8 ####BHANU Treviño ([id number])[facility] ([facility])[address]247 [place] [address] Erythrocyte distribution width (RBC) [Ratio] 19.2 % High 11.5-14.5 [facility] Comment on above: Performed By: #### 5 7021-8 ####BHANU Treviño (13563)[facility] ([facility])[address]80 [place] [address] Hematocrit (Bld) [Volume fraction] 30.4 % Low 41.0-52.0 [facility] Comment on above: Performed By: #### 5 7021-8 ####BHANU Treviño (79541)[facility] ([facility])[address] [place] [address] 56696 Hemoglobin (Bld) [Mass/Vol] 9.7 g/dL Low 13.5-17.5 [facility] Comment on above: Performed By: #### 5 7021-8 ####BHANU Treviño (08075)[facility] ([facility])[address] [place] [address] 68949 Immature granulocytes (Bld) [#/Vol] 0.02 x10*3/uL Normal 0.00-0.70 [facility] Comment on above: Performed By: #### 5 7021-8 ####BHANU Treviño ([id number])[facility] ([facility])[address] [place] [address] 77963 Immature granulocytes/100 WBC (Bld) 0.4 % Normal 0.0-0.9 [facility] Comment on above: Result Comment: Christine ture Granulocyte Count (IG) includes promyelocytes, myelocytes and metamyelocytes but does not include bands. Percent differential counts (%) should be interpreted in the context of the absolute cell counts (cells/UL). Performed By: #### 5 7021-8 ####BHANU Treviño ([id number])[facility] ([facility])[address]49 [place] [address] Lymphocytes (Bld) [#/Vol] 0.92 x10*3/uL Low 1.20-4.80 [facility] Comment on above: Performed By: #### 5 7021-8 ####BHANU Treviño (94239)[facility] ([facility])[address]64 [place] [address] Lymphocytes/100 WBC (Bld) 16.6 % Normal 13.0-44.0 [facility] Comment on above: Performed By: #### 5 7021-8 ####BHANU Treviño ([id number])[facility] ([facility])[address] [place] [address] 32906 MCH (RBC) [Entitic mass] 24.4 pg Low 26.0-34.0 [facility] Comment on above: Performed By: #### 5 7021-8 ####BHANU Treviño ([id number])[facility] ([facility])[address] [place] [address] 46564 MCHC (RBC) [Mass/Vol] 31.9 g/dL Low 32.0-36.0 [facility] Comment on above: Performed By: #### 5 7021-8 ####BHANU Treviño ([id number])[facility] ([facility])[address] [place] [address] 84538 MCV (RBC) [Entitic vol] 77 fL Low 80-100 [facility] Comment on above: Performed By: #### 5 7021-8 ####BHANU Treviño ([id number])[facility] ([facility])[address] [place] [address] 03090 Monocytes (Bld) [#/Vol] 0.63 x10*3/uL Normal 0.10-1.00 [facility] Comment on above: Performed By: #### 5 7021-8 ####BHANU Treviño ([id number])[facility] ([facility])[address] [place] [address] 72101 Monocytes/100 WBC (Bld) 11.4 % Normal 2.0-10.0 [facility] Comment on above: Performed By: #### 5 7021-8 ####BHANU Treviño ([id number])[facility] ([facility])[address]56 [place] [address] Neutrophils (Bld) [#/Vol] 3.41 x10*3/uL Normal 1.20-7.70 [facility] Comment on above: Result Comment: Perc ent differential counts (%) should be interpreted in the context of the absolute cell counts (cells/uL). Performed By: #### 5 7021-8 ####BHANU Treviño ([id number])[facility] ([facility])[address]329 [place] [address] Neutrophils/100 WBC (Bld) 61.5 % Normal 40.0-80.0 [facility] Comment on above: Performed By: #### 5 7021-8 ####BHANU Treviño (60269)[facility] ([facility])[address]30 [place] [address] Nucleated RBC/100 WBC (Bld) [Ratio] 0.0 /100 WBCs Normal 0.0-0.0 [facility] Comment on above: Performed By: #### 5 7021-8 ####BHANU Treviño ([id number])[facility] ([facility])[address] [place] [address] Platelets (Bld) [#/Vol] 347 x10*3/uL Normal 150-450 [facility] Comment on above: Performed By: #### 5 7021-8 ####BHANU Treviño ([id number])[facility] ([facility])[address] [place] [address] RBC (Bld) [#/Vol] 3.97 x10*6/uL Low 4.50-5.90 [facility] Comment on above: Performed By: #### 5 7021-8 ####BHANU Treviño ([id number])[facility] ([facility])[address] [place] [address] WBC (Bld) [#/Vol] 5.5 x10*3/uL Normal 4.4-11.3 [facility] Comment on above: Performed By: #### 5 7021-8 ####BHANU Treviño ([id number])[facility] ([facility])[address] [place] [address] Glucose Test strip manual (B ld) [Mass/Vol]on 02-02-2025 Glucose [Mass/Vol] 94 mg/dL Normal 74-99 [facility] Comment on above: Performed By: #### 2 341-6 ####BHANU Treviño ([id number])[facility] ([facility])[id number] [place] [address] Glucose [Mass/Vol] 107 mg/dL High 74-99 [facility] Comment on above: Performed By: #### 2 341-6 ####BHANU Treviño ([id number])[facility] ([facility])[id number] [place] [address] Prealbuminon 02-02-2025 Prealbumin [Mass/Vol] 7.5 mg/dL Low 18.0-40.0 [facility] Comment on above: Performed By: #### 1 4338-8 ####BHANU Treviño ([id number])[facility] ([facility])[id number] [place] [address] Renal function 2000 panelon 02-02-2025 Albumin BCP dye [Mass/Vol] 2.4 g/dL Low 3.4-5.0 [facility] Comment on above: Performed By: #### 2 4362-6 ####BHANU Treviño ([id number])[facility] ([facility])[address] [place] [address] Anion gap [Moles/Vol] 12 mmol/L Normal 10-20 [facility] Comment on above: Performed By: #### 2 4362-6 ####BHANU Treviño ([id number])[facility] ([facility])[id number] [place] [address] Calcium [Mass/Vol] 7.9 mg/dL Low 8.6-10.6 [facility] Comment on above: Performed By: #### 2 4362-6 ####BHANU Treviño ([id number])[facility] ([facility])[address] [place] [address] Chloride [Moles/Vol] 107 mmol/L Normal 98-107 [facility] Comment on above: Performed By: #### 2 4362-6 ####BHANU GREGORY L ([id number])[facility] ([facility])[address] [place] [address] CO2 [Moles/Vol] 28 mmol/L Normal 21-32 [facility] Comment on above: Performed By: #### 2 4362-6 ####BHANU GREGORY L ([id number])[facility] ([facility])[address]27 [place] [address] Creatinine [Mass/Vol] 1.19 mg/dL Normal 0.50-1.30 [facility] Comment on above: Performed By: #### 2 4362-6 ####BHANU Treviño ([id number])[facility] ([facility])[address]909 [place] [address] Glomerular filtration rate/1.73 sq M.predicted 74 mL/min/1.73m*2 Normal >60 [facility] Comment on above: Result Comment: Calc ulations of estimated GFR are performed using the 2020 CKD-EPI Study Refit equation without the race variable for the IDMS-Traceable creatinine methods.https://jasn.asnjournals.org/content/early/ /ASN.1938033091 Performed By: #### 2 4362-6 ####BHANU Treviño ([id number])[facility] ([facility])[address] [place] [address] Glucose [Mass/Vol] 85 mg/dL Normal 74-99 [facility] Comment on above: Performed By: #### 2 4362-6 ####BHANU GREGORY L ([id number])[facility] ([facility])[address]34 [place] [address] Phosphate [Mass/Vol] 2.8 mg/dL Normal 2.5-4.9 [facility] Comment on above: Performed By: #### 2 4362-6 ####BHANU Treviño (69067)[facility] ([facility])[address]66 [place] [address] Potassium [Moles/Vol] 4.6 mmol/L Normal 3.5-5.3 [facility] Comment on above: Performed By: #### 2 4362-6 ####BHANU Treviño (28096)[facility] ([facility])[address]451 [place] [address] Sodium [Moles/Vol] 142 mmol/L Normal 136-145 [facility] Comment on above: Performed By: #### 2 4362-6 ####BHANU Treviño ([id number])[facility] ([facility])[address]38 [place] [address] Urea nitrogen [Mass/Vol] 15 mg/dL Normal 6-23 [facility] Comment on above: Performed By: #### 2 4362-6 ####BHANU Treviño ([id number])[facility] ([facility])[address]76 [place] [address] Basic metabolic 2000 panelon 02-01-2025 Anion gap [Moles/Vol] 13 mmol/L Normal 10-20 [facility] Comment on above: Performed By: #### 2 4321-2 ####BHANU Treviño ([id number])[facility] ([facility])[address] [place] [address] Calcium [Mass/Vol] 7.9 mg/dL Low 8.6-10.6 [facility] Comment on above: Performed By: #### 2 4321-2 ####BHANU Treviño ([id number])[facility] ([facility])[address] [place] [address] Chloride [Moles/Vol] 106 mmol/L Normal 98-107 [facility] Comment on above: Performed By: #### 2 4321-2 ####BHANU Treviño ([id number])[facility] ([facility])[address] [place] [address] CO2 [Moles/Vol] 29 mmol/L Normal 21-32 [facility] Comment on above: Performed By: #### 2 4321-2 ####BHANU GREGORY L (85570)[facility] ([facility])[address]46 [place] [address] Creatinine [Mass/Vol] 1.35 mg/dL High 0.50-1.30 [facility] Comment on above: Performed By: #### 2 4321-2 ####BHANU Treviño ([id number])[facility] ([facility])[address]097 [place] [address] Glomerular filtration rate/1.73 sq M.predicted 64 mL/min/1.73m*2 Normal >60 [facility] Comment on above: Result Comment: Calc ulations of estimated GFR are performed using the 2020 CKD-EPI Study Refit equation without the race variable for the IDMS-Traceable creatinine methods.https://jasn.asnjournals.org/content/early/ /ASN.9512191023 Performed By: #### 2 4321-2 ####BHANU Treviño ([id number])[facility] ([facility])[address]213 [place] [address] Glucose [Mass/Vol] 81 mg/dL Normal 74-99 [facility] Comment on above: Performed By: #### 2 4321-2 ####BHANU Treviño (51245)[facility] ([facility])[address]84 [place] [address] Potassium [Moles/Vol] 4.5 mmol/L Normal 3.5-5.3 [facility] Comment on above: Performed By: #### 2 4321-2 ####BHANU GREGORY L ([id number])[facility] ([facility])[address]18 [place] [address] Sodium [Moles/Vol] 143 mmol/L Normal 136-145 [facility] Comment on above: Performed By: #### 2 4321-2 ####BHANU Treviño ([id number])[facility] ([facility])41943 [place] [address] Urea nitrogen [Mass/Vol] 15 mg/dL Normal 6-23 [facility] Comment on above: Performed By: #### 2 4321-2 ####BHANU Treviño ([id number])[facility] ([facility])[address] [place] [address] Blood type and Indirect anti body screen panel (Bld)on 02-01-2025 ABO group Nom (Bld) A Normal [facility] Comment on above: Performed By: #### 3 4532-2 ####BHANU Treviño ([id number])[facility] ([facility])[address] [place] [address] Blood group antibody screen Ql Negative [facility] Comment on above: Performed By: #### 3 4532-2 ####BHANU Treviño ([id number])[facility] ([facility])[address] [place] [address] 79069 D Ag Ql (Bld) Positive [facility] Comment on above: Performed By: #### 3 4532-2 ####BHANU Treviño (57660)[facility] ([facility])[address] [place] [address] 39884 CBC panel Auto (Bld)on 02-01 Erythrocyte distribution width (RBC) [Ratio] 19.1 % High 11.5-14.5 [facility] Comment on above: Performed By: #### 5 8410-2 ####BHANU Treviño ([id number])[facility] ([facility])[address] [place] [address], [place] [address] Hematocrit (Bld) [Volume fraction] 25.0 % Low 41.0-52.0 [facility] Comment on above: Performed By: #### 5 8410-2 ####BHANU Treviño ([id number])[facility] ([facility])[address] [place] [address] 19987 Hemoglobin (Bld) [Mass/Vol] 8.0 g/dL Low 13.5-17.5 [facility] Comment on above: Performed By: #### 5 8410-2 ####BHANU Treviño (32109)[facility] ([facility])[address] [place] [address]1323 MCH (RBC) [Entitic mass] 25.2 pg Low 26.0-34.0 [facility] Comment on above: Performed By: #### 5 8410-2 ####BHANU Treviño (84369)[facility] ([facility])[address] [place] [address] 65179 MCHC (RBC) [Mass/Vol] 32.0 g/dL Normal 32.0-36.0 [facility] Comment on above: Performed By: #### 5 8410-2 ####BHANU Treviño ([id number])[facility] ([facility])[address] [place] [address] 74647 MCV (RBC) [Entitic vol] 79 fL Low 80-100 [facility] Comment on above: Performed By: #### 5 8410-2 ####BHANU Treviño ([id number])[facility] ([facility])[address] [place] [address] 48849 Nucleated RBC/100 WBC (Bld) [Ratio] 0.0 /100 WBCs Normal 0.0-0.0 [facility] Comment on above: Performed By: #### 5 8410-2 ####BHANU Treviño (21583)[facility] ([facility])[address] [place] [address] 44273 Platelets (Bld) [#/Vol] 433 x10*3/uL Normal 150-450 [facility] Comment on above: Performed By: #### 5 8410-2 ####BHANU Treviño ([id number])[facility] ([facility])[address]39 [place] [address] RBC (Bld) [#/Vol] 3.18 x10*6/uL Low 4.50-5.90 [facility] Comment on above: Performed By: #### 5 8410-2 ####BHANU Treviño (53234)[facility] ([facility])[address] [place] [address] 74836 WBC (Bld) [#/Vol] 6.9 x10*3/uL Normal 4.4-11.3 [facility] Comment on above: Performed By: #### 5 8410-2 ####BHANU Treviño ([id number])[facility] ([facility])[address] [place] [address]356 Glucose Test strip manual (B ld) [Mass/Vol]on 02-01-2025 Glucose [Mass/Vol] 98 mg/dL Normal 74-99 [facility] Comment on above: Performed By: #### 2 341-6 ####BHANU Treviño ([id number])[facility] ([facility])[address] [place] [address] 87364 Glucose [Mass/Vol] 127 mg/dL High 74-99 [facility] Comment on above: Performed By: #### 2 341-6 ####BHANU Treviño (07594)[facility] ([facility])[address] [place] [address] 39442 Glucose [Mass/Vol] 110 mg/dL High 74-99 [facility] Comment on above: Performed By: #### 2 341-6 ####BHANU Treviño ([id number])[facility] ([facility])[address] [place] [address] 59972 CBC W Auto Differential pane l (Bld)on 01-31-2025 Basophils (Bld) [#/Vol] 0.04 x10*3/uL Normal 0.00-0.10 [facility] Comment on above: Performed By: #### 5 7021-8 ####BHANU Treviño ([id number])[facility] ([facility])[address]75 [place] [address] Basophils/100 WBC (Bld) 0.5 % Normal 0.0-2.0 [facility] Comment on above: Performed By: #### 5 7021-8 ####BHANU GREGORY L ([id number])[facility] ([facility])[address]22 [place] [address] Eosinophils (Bld) [#/Vol] 0.01 x10*3/uL Normal 0.00-0.70 [facility] Comment on above: Performed By: #### 5 7021-8 ####BHANU GREGORY L (31992)[facility] ([facility])[address]851 [place] [address] Eosinophils/100 WBC (Bld) 0.1 % Normal 0.0-6.0 [facility] Comment on above: Performed By: #### 5 7021-8 ####BHANU Treviño (20264)[facility] ([facility])[address]776 [place] [address] Erythrocyte distribution width (RBC) [Ratio] 19.6 % High 11.5-14.5 [facility] Comment on above: Performed By: #### 5 7021-8 ####BHANU GREGORY L (31519)[facility] ([facility])[address] [place] [address] 62790 Hematocrit (Bld) [Volume fraction] 21.9 % Low 41.0-52.0 [facility] Comment on above: Performed By: #### 5 7021-8 ####BHANU GREGORY L (96783)[facility] ([facility])[address] [place] [address] 93189 Hemoglobin (Bld) [Mass/Vol] 7.1 g/dL Low 13.5-17.5 [facility] Comment on above: Performed By: #### 5 7021-8 ####BHANU Treviño ([id number])[facility] ([facility])[address]131 [place] [address] Immature granulocytes (Bld) [#/Vol] 0.06 x10*3/uL Normal 0.00-0.70 [facility] Comment on above: Performed By: #### 5 7021-8 ####BHANU Treviño (36226)[facility] ([facility])[address]302 [place] [address] Immature granulocytes/100 WBC (Bld) 0.7 % Normal 0.0-0.9 [facility] Comment on above: Result Comment: Christine ture Granulocyte Count (IG) includes promyelocytes, myelocytes and metamyelocytes but does not include bands. Percent differential counts (%) should be interpreted in the context of the absolute cell counts (cells/UL). Performed By: #### 5 7021-8 ####BHANU Treviño ([id number])[facility] ([facility])[address]424 [place] [address] Lymphocytes (Bld) [#/Vol] 1.27 x10*3/uL Normal 1.20-4.80 [facility] Comment on above: Performed By: #### 5 7021-8 ####BHANU Treviño ([id number])[facility] ([facility])[address]82 [place] [address] Lymphocytes/100 WBC (Bld) 14.6 % Normal 13.0-44.0 [facility] Comment on above: Performed By: #### 5 7021-8 ####BHANU Treviño (79301)[facility] ([facility])[address]37 [place] [address] MCH (RBC) [Entitic mass] 24.1 pg Low 26.0-34.0 [facility] Comment on above: Performed By: #### 5 7021-8 ####BHANU Treviño (22716)[facility] ([facility])[address]198 [place] [address] MCHC (RBC) [Mass/Vol] 32.4 g/dL Normal 32.0-36.0 [facility] Comment on above: Performed By: #### 5 7021-8 ####BHANU Treviño (76995)[facility] ([facility])[address]43 [place] [address] MCV (RBC) [Entitic vol] 75 fL Low 80-100 [facility] Comment on above: Performed By: #### 5 7021-8 ####BHANU Treviño (49003)[facility] ([facility])[address] [place] [address] 06660 Monocytes (Bld) [#/Vol] 0.94 x10*3/uL Normal 0.10-1.00 [facility] Comment on above: Performed By: #### 5 7021-8 ####BHANU Treviño (90574)[facility] ([facility])[address] [place] [address] 56483 Monocytes/100 WBC (Bld) 10.8 % Normal 2.0-10.0 [facility] Comment on above: Performed By: #### 5 7021-8 ####BHANU Treviño ([id number])[facility] ([facility])[address] [place] [address] 58381 Neutrophils (Bld) [#/Vol] 6.39 x10*3/uL Normal 1.20-7.70 [facility] Comment on above: Result Comment: Perc ent differential counts (%) should be interpreted in the context of the absolute cell counts (cells/uL). Performed By: #### 5 7021-8 ####BHANU Treviño ([id number])[facility] ([facility])[address]012 [place] [address] Neutrophils/100 WBC (Bld) 73.3 % Normal 40.0-80.0 [facility] Comment on above: Performed By: #### 5 7021-8 ####BHANU FLEMINGMOJOSEFA Treviño (36163)[facility] ([facility])[address]12 [place] [address] Nucleated RBC/100 WBC (Bld) [Ratio] 0.0 /100 WBCs Normal 0.0-0.0 [facility] Comment on above: Performed By: #### 5 7021-8 ####BHANU Treviño (65419)[facility] ([facility])[address]011 [place] [address] Platelets (Bld) [#/Vol] 455 x10*3/uL High 150-450 [facility] Comment on above: Performed By: #### 5 7021-8 ####BHANU Treviño (87280)[facility] ([facility])[address] [place] [address] 17906 RBC (Bld) [#/Vol] 2.94 x10*6/uL Low 4.50-5.90 [facility] Comment on above: Performed By: #### 5 7021-8 ####BHANU Treviño ([id number])[facility] ([facility])[address] [place] [address] 59733 WBC (Bld) [#/Vol] 8.7 x10*3/uL Normal 4.4-11.3 [facility] Comment on above: Performed By: #### 5 7021-8 ####BHANU Treviño ([id number])[facility] ([facility])[address] [place] [address] 66312 Glucose Test strip manual (B ld) [Mass/Vol]on 01-31-2025 Glucose [Mass/Vol] 97 mg/dL Normal 74-99 [facility] Comment on above: Performed By: #### 2 341-6 ####BHANU Treviño (20857)[facility] ([facility])[address]28 [place] [address] Glucose [Mass/Vol] 107 mg/dL High 74-99 [facility] Comment on above: Performed By: #### 2 341-6 ####BHANU Treviño (80626)[facility] ([facility])38268 [place] [address] Magnesiumon 01-31-2025 Magnesium [Mass/Vol] 2.07 mg/dL Normal 1.60-2.40 [facility] Comment on above: Performed By: #### 1 9123-9 ####BHANU Treviño (07452)[facility] ([facility])[address]275 [place] [address] Renal function 2000 panelon 01-31-2025 Albumin BCP dye [Mass/Vol] 2.6 g/dL Low 3.4-5.0 [facility] Comment on above: Performed By: #### 2 4362-6 ####BHANU Treviño (21183)[facility] ([facility])[address]458 [place] [address] Anion gap [Moles/Vol] 13 mmol/L Normal 10-20 [facility] Comment on above: Performed By: #### 2 4362-6 ####BHANU Treviño (86189)[facility] ([facility])27741 [place] [address] Calcium [Mass/Vol] 8.2 mg/dL Low 8.6-10.6 [facility] Comment on above: Performed By: #### 2 4362-6 ####BHANU Treviño (85197)[facility] ([facility])[address]59 [place] [address] Chloride [Moles/Vol] 102 mmol/L Normal 98-107 [facility] Comment on above: Performed By: #### 2 4362-6 ####BHANU Treviño (01540)[facility] ([facility])[address]70 [place] [address] CO2 [Moles/Vol] 29 mmol/L Normal 21-32 [facility] Comment on above: Performed By: #### 2 4362-6 ####BHANU Treviño (74626)[facility] ([facility])[address]53 [place] [address] Creatinine [Mass/Vol] 1.04 mg/dL Normal 0.50-1.30 [facility] Comment on above: Performed By: #### 2 4362-6 ####BHANU Treviño (34719)[facility] ([facility])[address]106 [place] [address] Glomerular filtration rate/1.73 sq M.predicted 87 mL/min/1.73m*2 Normal >60 [facility] Comment on above: Result Comment: Calc ulations of estimated GFR are performed using the 2020 CKD-EPI Study Refit equation without the race variable for the IDMS-Traceable creatinine methods.https://jasn.asnjournals.org/content/early /ASN.2669301495 Performed By: #### 2 4362-6 ####BHANU Treviño (02773)[facility] ([facility])38647 [place] [address] Glucose [Mass/Vol] 104 mg/dL High 74-99 [facility] Comment on above: Performed By: #### 2 4362-6 ####BHANU GREGORY L (59112)[facility] ([facility])[address]460 [place] [address] Phosphate [Mass/Vol] 3.6 mg/dL Normal 2.5-4.9 [facility] Comment on above: Performed By: #### 2 4362-6 ####BHANU GREGORY L (97312)[facility] ([facility])[address]08 [place] [address] Potassium [Moles/Vol] 4.4 mmol/L Normal 3.5-5.3 [facility] Comment on above: Performed By: #### 2 4362-6 ####BHANU GREGORY L (32027)[facility] ([facility])[address]81 [place] [address] Sodium [Moles/Vol] 140 mmol/L Normal 136-145 [facility] Comment on above: Performed By: #### 2 4362-6 ####BHANU GREGORY L (62832)[facility] ([facility])[address]209 [place] [address] Urea nitrogen [Mass/Vol] 12 mg/dL Normal 6-23 [facility] Comment on above: Performed By: #### 2 4362-6 ####BHANU Treviño (50438)[facility] ([facility])[address]002 [place] [address] Bacteria identifiedon 2024 Bacteria identified Cx Nom (Unsp spec) Abnormal [facility] Comment on above: Performed By: #### 6 463-4 ####BHANU Treviño (85918)[facility] ([facility])[address]854 [place] [address] Bacteria identified Cx Nom (Unsp spec) Abnormal [facility] Comment on above: Performed By: #### 6 463-4 ####BHANU Treviño (93532)[facility] ([facility])[address]248 [place] [address] CBC W Auto Differential pane l (Bld)on 01-30-2025 Basophils (Bld) [#/Vol] 0.05 x10*3/uL Normal 0.00-0.10 [facility] Comment on above: Performed By: #### 5 7021-8 ####BHANU Treviño (03955)[facility] ([facility])[address]803 [place] [address] Basophils/100 WBC (Bld) 0.7 % Normal 0.0-2.0 [facility] Comment on above: Performed By: #### 5 7021-8 ####BHANU Treviño (56579)[facility] ([facility])[address]60 [place] [address] Eosinophils (Bld) [#/Vol] 0.14 x10*3/uL Normal 0.00-0.70 [facility] Comment on above: Performed By: #### 5 7021-8 ####BHANU Treviño (48653)[facility] ([facility])[address]754 [place] [address] Eosinophils/100 WBC (Bld) 2.0 % Normal 0.0-6.0 [facility] Comment on above: Performed By: #### 5 7021-8 ####BHANU Treviño (22677)[facility] ([facility])[address]991 [place] [address] Erythrocyte distribution width (RBC) [Ratio] 19.9 % High 11.5-14.5 [facility] Comment on above: Performed By: #### 5 7021-8 ####BHANU Treviño (74364)[facility] ([facility])[address]27 [place] [address] Hematocrit (Bld) [Volume fraction] 26.3 % Low 41.0-52.0 [facility] Comment on above: Performed By: #### 5 7021-8 ####BHANU Treviño (05097)[facility] ([facility])[address]08 [place] [address] Hemoglobin (Bld) [Mass/Vol] 8.3 g/dL Low 13.5-17.5 [facility] Comment on above: Performed By: #### 5 7021-8 ####BHANU Treviño (46048)[facility] ([facility])[id number] [place] [address] Immature granulocytes (Bld) [#/Vol] 0.02 x10*3/uL Normal 0.00-0.70 [facility] Comment on above: Performed By: #### 5 7021-8 ####BHANU Treviño ([id number])[facility] ([facility])[id number] [place] [address] Immature granulocytes/100 WBC (Bld) 0.3 % Normal 0.0-0.9 [facility] Comment on above: Result Comment: Christine ture Granulocyte Count (IG) includes promyelocytes, myelocytes and metamyelocytes but does not include bands. Percent differential counts (%) should be interpreted in the context of the absolute cell counts (cells/UL). Performed By: #### 5 7021-8 ####BHANU Treviño ([id number])[facility] ([facility])[address] [place] [address] Lymphocytes (Bld) [#/Vol] 1.09 x10*3/uL Low 1.20-4.80 [facility] Comment on above: Performed By: #### 5 7021-8 ####BHANU Treviño ([id number])[facility] ([facility])[address] [place] [address] Lymphocytes/100 WBC (Bld) 15.4 % Normal 13.0-44.0 [facility] Comment on above: Performed By: #### 5 7021-8 ####BHANU Treviño ([id number])[facility] ([facility])[id number] [place] [address] MCH (RBC) [Entitic mass] 24.1 pg Low 26.0-34.0 [facility] Comment on above: Performed By: #### 5 7021-8 ####BHANU Treviño ([id number])[facility] ([facility])[id number] [place] [address] 23347 MCHC (RBC) [Mass/Vol] 31.6 g/dL Low 32.0-36.0 [facility] Comment on above: Performed By: #### 5 7021-8 ####BHANU Treviño ([id number])[facility] ([facility])[id number] [place] [address]67 MCV (RBC) [Entitic vol] 76 fL Low 80-100 [facility] Comment on above: Performed By: #### 5 7021-8 ####BHANU Treviño ([id number])[facility] ([facility])[id number] [place] [address] Monocytes (Bld) [#/Vol] 0.89 x10*3/uL Normal 0.10-1.00 [facility] Comment on above: Performed By: #### 5 7021-8 ####BHANU Treviño ([id number])[facility] ([facility])[id number] [place] [address] Monocytes/100 WBC (Bld) 12.6 % Normal 2.0-10.0 [facility] Comment on above: Performed By: #### 5 7021-8 ####BHANU Treviño ([id number])[facility] ([facility])[address]472 [place] [address] Neutrophils (Bld) [#/Vol] 4.87 x10*3/uL Normal 1.20-7.70 [facility] Comment on above: Result Comment: Perc ent differential counts (%) should be interpreted in the context of the absolute cell counts (cells/uL). Performed By: #### 5 7021-8 ####BHANU Treviño ([id number])[facility] ([facility])[address]35 [place] [address] Neutrophils/100 WBC (Bld) 69.0 % Normal 40.0-80.0 [facility] Comment on above: Performed By: #### 5 7021-8 ####BHANU Treviño ([id number])[facility] ([facility])[address]81 [place] [address] Nucleated RBC/100 WBC (Bld) [Ratio] 0.0 /100 WBCs Normal 0.0-0.0 [facility] Comment on above: Performed By: #### 5 7021-8 ####BHANU Treviño ([id number])[facility] ([facility])72878 [place] [address] Platelets (Bld) [#/Vol] 492 x10*3/uL High 150-450 [facility] Comment on above: Performed By: #### 5 7021-8 ####BHANU Trevñio ([id number])[facility] ([facility])[address]56 [place] [address] RBC (Bld) [#/Vol] 3.45 x10*6/uL Low 4.50-5.90 [facility] Comment on above: Performed By: #### 5 7021-8 ####BHANU Treviño (91713)[facility] ([facility])[address]40 [place] [address] WBC (Bld) [#/Vol] 7.1 x10*3/uL Normal 4.4-11.3 [facility] Comment on above: Performed By: #### 5 7021-8 ####BHANU Treviño ([id number])[facility] ([facility])[address]30 [place] [address] Comprehensive metabolic 2000 panelon 01-30-2025 Albumin BCP dye [Mass/Vol] 2.3 g/dL Low 3.4-5.0 [facility] Comment on above: Performed By: #### 2 4323-8 ####BHANU Treviño ([id number])[facility] ([facility])[address]26 [place] [address] ALP [Catalytic activity/Vol] 80 U/L Normal 33-120 [facility] Comment on above: Performed By: #### 2 4323-8 ####BHANU Treviño ([id number])[facility] ([facility])[address]66 [place] [address] ALT With P-5'-P [Catalytic activity/Vol] 29 U/L Normal 10-52 [facility] Comment on above: Result Comment: Sydni ents treated with Sulfasalazine may generate falsely decreased results for ALT. Performed By: #### 2 4323-8 ####BHANU Treviño ([id number])[facility] ([facility])[address]006 [place] [address] Anion gap [Moles/Vol] 13 mmol/L Normal 10-20 [facility] Comment on above: Performed By: #### 2 4323-8 ####BHANU Treviño ([id number])[facility] ([facility])[address]24 [place] [address] AST With P-5'-P [Catalytic activity/Vol] 33 U/L Normal 9-39 [facility] Comment on above: Performed By: #### 2 4323-8 ####BHANU Treviño ([id number])[facility] ([facility])[address] [place] [address] Bilirubin [Mass/Vol] 0.4 mg/dL Normal 0.0-1.2 [facility] Comment on above: Performed By: #### 2 4323-8 ####BHANU MATOSER L (49919)[facility] ([facility])38391 [place] [address] Calcium [Mass/Vol] 8.4 mg/dL Low 8.6-10.6 [facility] Comment on above: Performed By: #### 2 4323-8 ####BHANU LAUREANOTZER L ([id number])[facility] ([facility])[address]008 [place] [address] Chloride [Moles/Vol] 102 mmol/L Normal 98-107 [facility] Comment on above: Performed By: #### 2 4323-8 ####BHANU FLEMINGMOTZER L ([id number])[facility] ([facility])[address]578 [place] [address] CO2 [Moles/Vol] 29 mmol/L Normal 21-32 [facility] Comment on above: Performed By: #### 2 4323-8 ####BHANU FLEMINGMOTZER L (71981)[facility] ([facility])[address]11 [place] [address] Creatinine [Mass/Vol] 1.06 mg/dL Normal 0.50-1.30 [facility] Comment on above: Performed By: #### 2 4323-8 ####BHANU FLEMINGMOTZER L ([id number])[facility] ([facility])[address]778 [place] [address] Glomerular filtration rate/1.73 sq M.predicted 85 mL/min/1.73m*2 Normal >60 [facility] Comment on above: Result Comment: Calc ulations of estimated GFR are performed using the 2020 CKD-EPI Study Refit equation without the race variable for the IDMS-Traceable creatinine methods.https://jasn.asnjournals.org/content/early /ASN.5444450614 Performed By: #### 2 4323-8 ####BHANU Treviño ([id number])[facility] ([facility])56696 [place] [address] Glucose [Mass/Vol] 91 mg/dL Normal 74-99 [facility] Comment on above: Performed By: #### 2 4323-8 ####BHANU Treviño ([id number])[facility] ([facility])[address] [place] [address] Potassium [Moles/Vol] 4.5 mmol/L Normal 3.5-5.3 [facility] Comment on above: Performed By: #### 2 4323-8 ####BHANU Treviño (80920)[facility] ([facility])[address] [place] [address] Protein [Mass/Vol] 6.1 g/dL Low 6.4-8.2 [facility] Comment on above: Performed By: #### 2 4323-8 ####BHANU Treviño (65261)[facility] ([facility])[address]65 [place] [address] Sodium [Moles/Vol] 139 mmol/L Normal 136-145 [facility] Comment on above: Performed By: #### 2 4323-8 ####BHANU Treviño (48633)[facility] ([facility])37458 [place] [address] Urea nitrogen [Mass/Vol] 11 mg/dL Normal 6-23 [facility] Comment on above: Performed By: #### 2 4323-8 ####BHANU Treviño (87097)[facility] ([facility])[address]45 [place] [address] Fungus identifiedon 01-31-20 25 Fungus identified Cx Nom (Unsp spec) Abnormal [facility] Comment on above: Performed By: #### 5 80-1 ####BHANU Treviño (22161)[facility] ([facility])[address]10 [place] [address] Fungus identified Cx Nom (Unsp spec) Abnormal [facility] Comment on above: Performed By: #### 5 80-1 ####BHANU Treviño (39501)[facility] ([facility])36120 [place] [address] Glucose Test strip manual (B ld) [Mass/Vol]on 01-30-2025 Glucose [Mass/Vol] 129 mg/dL High 74-99 [facility] Comment on above: Performed By: #### 2 341-6 ####BHANU Treviño ([id number])[facility] ([facility])[address]65 [place] [address] Magnesiumon 01-30-2025 Magnesium [Mass/Vol] 2.05 mg/dL Normal 1.60-2.40 [facility] Comment on above: Performed By: #### 1 9123-9 ####BHANU Treviño ([id number])[facility] ([facility])[address]52 [place] [address] Blood type and Indirect anti body screen panel (Bld)on 01-29-2025 ABO group Nom (Bld) A Normal [facility] Comment on above: Performed By: #### 3 4532-2 ####BHANU Treviño ([id number])[facility] ([facility])[address] [place] [address] Blood group antibody screen Ql Negative [facility] Comment on above: Performed By: #### 3 4532-2 ####BHANU Treviño ([id number])[facility] ([facility])[address] [place] [address] D Ag Ql (Bld) Positive [facility] Comment on above: Performed By: #### 3 4532-2 ####BHANU Treviño ([id number])[facility] ([facility])[address] [place] [address] CBC W Auto Differential pane l (Bld)on 01-29-2025 Basophils (Bld) [#/Vol] 0.07 x10*3/uL Normal 0.00-0.10 [facility] Comment on above: Performed By: #### 5 7021-8 ####BHANU Treviño (74331)[facility] ([facility])74132 [place] [address] Basophils/100 WBC (Bld) 0.9 % Normal 0.0-2.0 [facility] Comment on above: Performed By: #### 5 7021-8 ####BHANU Treviño ([id number])[facility] ([facility])[address] [place] [address] Eosinophils (Bld) [#/Vol] 0.16 x10*3/uL Normal 0.00-0.70 [facility] Comment on above: Performed By: #### 5 7021-8 ####BHANU Treviño ([id number])[facility] ([facility])[address] [place] [address] Eosinophils/100 WBC (Bld) 2.0 % Normal 0.0-6.0 [facility] Comment on above: Performed By: #### 5 7021-8 ####BHANU Treviño ([id number])[facility] ([facility])[address] [place] [address] Erythrocyte distribution width (RBC) [Ratio] 20.0 % High 11.5-14.5 [facility] Comment on above: Performed By: #### 5 7021-8 ####BHANU Treviño ([id number])[facility] ([facility])[address] [place] [address] Hematocrit (Bld) [Volume fraction] 29.4 % Low 41.0-52.0 [facility] Comment on above: Performed By: #### 5 7021-8 ####BHANU Treviño (52984)[facility] ([facility])[address]70 [place] [address] Hemoglobin (Bld) [Mass/Vol] 8.8 g/dL Low 13.5-17.5 [facility] Comment on above: Performed By: #### 5 7021-8 ####BHANU Treviño ([id number])[facility] ([facility])04832 [place] [address] Immature granulocytes (Bld) [#/Vol] 0.03 x10*3/uL Normal 0.00-0.70 [facility] Comment on above: Performed By: #### 5 7021-8 ####BHANU Treviño ([id number])[facility] ([facility])79868 [place] [address] Immature granulocytes/100 WBC (Bld) 0.4 % Normal 0.0-0.9 [facility] Comment on above: Result Comment: Christine ture Granulocyte Count (IG) includes promyelocytes, myelocytes and metamyelocytes but does not include bands. Percent differential counts (%) should be interpreted in the context of the absolute cell counts (cells/UL). Performed By: #### 5 7021-8 ####BHANU Treviño ([id number])[facility] ([facility])88353 [place] [address] Lymphocytes (Bld) [#/Vol] 1.25 x10*3/uL Normal 1.20-4.80 [facility] Comment on above: Performed By: #### 5 7021-8 ####BHANU Treviño ([id number])[facility] ([facility])08369 [place] [address] Lymphocytes/100 WBC (Bld) 15.7 % Normal 13.0-44.0 [facility] Comment on above: Performed By: #### 5 7021-8 ####BHANU Treviño (09784)[facility] ([facility])[address]4542 [place] [address] MCH (RBC) [Entitic mass] 23.7 pg Low 26.0-34.0 [facility] Comment on above: Performed By: #### 5 7021-8 ####BHANU Treviño (91758)[facility] ([facility])[address]150 [place] [address] MCHC (RBC) [Mass/Vol] 29.9 g/dL Low 32.0-36.0 [facility] Comment on above: Performed By: #### 5 7021-8 ####BHANU Treviño ([id number])[facility] ([facility])50766 [place] [address] MCV (RBC) [Entitic vol] 79 fL Low 80-100 [facility] Comment on above: Performed By: #### 5 7021-8 ####BHANU Treviño ([id number])[facility] ([facility])15562 [place] [address] Monocytes (Bld) [#/Vol] 0.98 x10*3/uL Normal 0.10-1.00 [facility] Comment on above: Performed By: #### 5 7021-8 ####BHANU Treviño ([id number])[facility] ([facility])34076 [place] [address] Monocytes/100 WBC (Bld) 12.3 % Normal 2.0-10.0 [facility] Comment on above: Performed By: #### 5 7021-8 ####BHANU Treviño ([id number])[facility] ([facility])12674 [place] [address] Neutrophils (Bld) [#/Vol] 5.45 x10*3/uL Normal 1.20-7.70 [facility] Comment on above: Result Comment: Perc ent differential counts (%) should be interpreted in the context of the absolute cell counts (cells/uL). Performed By: #### 5 7021-8 ####BHANU Treviño (48426)[facility] ([facility])18757 [place] [address] Neutrophils/100 WBC (Bld) 68.7 % Normal 40.0-80.0 [facility] Comment on above: Performed By: #### 5 7021-8 ####BHANU Treviño (34265)[facility] ([facility])14906 [place] [address] Nucleated RBC/100 WBC (Bld) [Ratio] 0.0 /100 WBCs Normal 0.0-0.0 [facility] Comment on above: Performed By: #### 5 7021-8 ####BHANU Treviño ([id number])[facility] ([facility])[address] [place] [address] Platelets (Bld) [#/Vol] 537 x10*3/uL High 150-450 [facility] Comment on above: Performed By: #### 5 7021-8 ####BHANU Treviño (61093)[facility] ([facility])[address] [place] [address] RBC (Bld) [#/Vol] 3.72 x10*6/uL Low 4.50-5.90 [facility] Comment on above: Performed By: #### 5 7021-8 ####BHANU Treviño ([id number])[facility] ([facility])[address] [place] [address] WBC (Bld) [#/Vol] 7.9 x10*3/uL Normal 4.4-11.3 [facility] Comment on above: Performed By: #### 5 7021-8 ####BHANU Treviño (20921)[facility] ([facility])[address] [place] [address] Comprehensive metabolic 2000 panelon 01-29-2025 Albumin BCP dye [Mass/Vol] 2.4 g/dL Low 3.4-5.0 [facility] Comment on above: Performed By: #### 2 4323-8 ####BHANU Treviño (47447)[facility] ([facility])[address] [place] [address] ALP [Catalytic activity/Vol] 70 U/L Normal 33-120 [facility] Comment on above: Performed By: #### 2 4323-8 ####BHANU Treviño ([id number])[facility] ([facility])[address]757 [place] [address] ALT With P-5'-P [Catalytic activity/Vol] 28 U/L Normal 10-52 [facility] Comment on above: Result Comment: Sydni ents treated with Sulfasalazine may generate falsely decreased results for ALT. Performed By: #### 2 4323-8 ####BHANU Treviño (67189)[facility] ([facility])[address]39 [place] [address] Anion gap [Moles/Vol] 11 mmol/L Normal 10-20 [facility] Comment on above: Performed By: #### 2 4323-8 ####BHANU Treviño ([id number])[facility] ([facility])03046 [place] [address] AST With P-5'-P [Catalytic activity/Vol] 28 U/L Normal 9-39 [facility] Comment on above: Performed By: #### 2 4323-8 ####BHANU Treviño (65336)[facility] ([facility])21028 [place] [address] Bilirubin [Mass/Vol] 0.3 mg/dL Normal 0.0-1.2 [facility] Comment on above: Performed By: #### 2 4323-8 ####BHANU Treviño (16645)[facility] ([facility])10118 [place] [address] Calcium [Mass/Vol] 8.2 mg/dL Low 8.6-10.6 [facility] Comment on above: Performed By: #### 2 4323-8 ####BHANU GREGORY L ([id number])[facility] ([facility])88228 [place] [address] Chloride [Moles/Vol] 102 mmol/L Normal 98-107 [facility] Comment on above: Performed By: #### 2 4323-8 ####BHANU Treviño ([id number])[facility] ([facility])[address] [place] [address] CO2 [Moles/Vol] 28 mmol/L Normal 21-32 [facility] Comment on above: Performed By: #### 2 4323-8 ####BHANU Treviño (71929)[facility] ([facility])[address] [place] [address] Creatinine [Mass/Vol] 1.07 mg/dL Normal 0.50-1.30 [facility] Comment on above: Performed By: #### 2 4323-8 ####BHANU Treviño (77672)[facility] ([facility])[address]324 [place] [address] Glomerular filtration rate/1.73 sq M.predicted 84 mL/min/1.73m*2 Normal >60 [facility] Comment on above: Result Comment: Calc ulations of estimated GFR are performed using the 2020 CKD-EPI Study Refit equation without the race variable for the IDMS-Traceable creatinine methods.https://jasn.asnjournals.org/content/early/ /ASN.8060608284 Performed By: #### 2 4323-8 ####BHANU Treviño (28099)[facility] ([facility])[address]19 [place] [address] Glucose [Mass/Vol] 99 mg/dL Normal 74-99 [facility] Comment on above: Performed By: #### 2 4323-8 ####BHANU Treviño ([id number])[facility] ([facility])87082 [place] [address] Potassium [Moles/Vol] 4.2 mmol/L Normal 3.5-5.3 [facility] Comment on above: Performed By: #### 2 4323-8 ####BHANU Treviño (66152)[facility] ([facility])[address]2886 [place] [address] Protein [Mass/Vol] 6.4 g/dL Normal 6.4-8.2 [facility] Comment on above: Performed By: #### 2 4323-8 ####BHANU Treviño (28300)[facility] ([facility])[address] [place] [address] 646[address] Sodium [Moles/Vol] 137 mmol/L Normal 136-145 [facility] Comment on above: Performed By: #### 2 4323-8 ####BHANU Treviño (32171)[facility] ([facility])[address] [place] [address] 31952 Urea nitrogen [Mass/Vol] 12 mg/dL Normal 6-23 [facility] Comment on above: Performed By: #### 2 4323-8 ####BHANU Treviño (88925)[facility] ([facility])[address] [place] [address] Creatine kinaseon 01-29-2025 CK [Catalytic activity/Vol] 58 U/L Normal 0-325 [facility] Comment on above: Performed By: #### 2 157-6 ####BHANU Treviño (98612)[facility] ([facility])[address] [place] [address] 908[address] Magnesiumon 01-29-2025 Magnesium [Mass/Vol] 1.81 mg/dL Normal 1.60-2.40 [facility] Comment on above: Performed By: #### 1 9123-9 ####BHANU Treviño ([id number])[facility] ([facility])[address] [place] [address] 659[address] CBC W Auto Differential pane l (Bld)on 01-28-2025 Basophils (Bld) [#/Vol] 0.07 x10*3/uL Normal 0.00-0.10 [facility] Comment on above: Performed By: #### 5 7021-8 ####BHANU Treviño (93933)[facility] ([facility])[address] [place] [address] 48533 Basophils/100 WBC (Bld) 1.0 % Normal 0.0-2.0 [facility] Comment on above: Performed By: #### 5 7021-8 ####BHANU Treviño ([id number])[facility] ([facility])[address] [place] [address] Eosinophils (Bld) [#/Vol] 0.44 x10*3/uL Normal 0.00-0.70 [facility] Comment on above: Performed By: #### 5 7021-8 ####BHANU Treviño ([id number])[facility] ([facility])[address] [place] [address] 23853 Eosinophils/100 WBC (Bld) 6.0 % Normal 0.0-6.0 [facility] Comment on above: Performed By: #### 5 7021-8 ####BHANU Treviño (98791)[facility] ([facility])[address] [place] [address] Erythrocyte distribution width (RBC) [Ratio] 19.7 % High 11.5-14.5 [facility] Comment on above: Performed By: #### 5 7021-8 ####BHANU Treviño ([id number])[facility] ([facility])[address] [place] [address] 85356 Hematocrit (Bld) [Volume fraction] 26.4 % Low 41.0-52.0 [facility] Comment on above: Performed By: #### 5 7021-8 ####BHANU Treviño (21609)[facility] ([facility])[address] [place] [address] 07072 Hemoglobin (Bld) [Mass/Vol] 8.5 g/dL Low 13.5-17.5 [facility] Comment on above: Performed By: #### 5 7021-8 ####BHANU Treviño ([id number])[facility] ([facility])[address] [place] [address] 27218 Immature granulocytes (Bld) [#/Vol] 0.04 x10*3/uL Normal 0.00-0.70 [facility] Comment on above: Performed By: #### 5 7021-8 ####BHANU Trevioñ (38909)[facility] ([facility])[address]39 [place] [address] Immature granulocytes/100 WBC (Bld) 0.5 % Normal 0.0-0.9 [facility] Comment on above: Result Comment: Christine ture Granulocyte Count (IG) includes promyelocytes, myelocytes and metamyelocytes but does not include bands. Percent differential counts (%) should be interpreted in the context of the absolute cell counts (cells/UL). Performed By: #### 5 7021-8 ####BHANU Treviño (88215)[facility] ([facility])[address]301 [place] [address] Lymphocytes (Bld) [#/Vol] 1.21 x10*3/uL Normal 1.20-4.80 [facility] Comment on above: Performed By: #### 5 7021-8 ####BHANU Treviño (68206)[facility] ([facility])[address] [place] [address] Lymphocytes/100 WBC (Bld) 16.4 % Normal 13.0-44.0 [facility] Comment on above: Performed By: #### 5 7021-8 ####BHANU Treviño ([id number])[facility] ([facility])[address] [place] [address] MCH (RBC) [Entitic mass] 24.6 pg Low 26.0-34.0 [facility] Comment on above: Performed By: #### 5 7021-8 ####BHANU Treviño ([id number])[facility] ([facility])[address] [place] [address] MCHC (RBC) [Mass/Vol] 32.2 g/dL Normal 32.0-36.0 [facility] Comment on above: Performed By: #### 5 7021-8 ####BHANU Treviño ([id number])[facility] ([facility])[address] [place] [address] MCV (RBC) [Entitic vol] 77 fL Low 80-100 [facility] Comment on above: Performed By: #### 5 7021-8 ####BHANU LAUREANOTZER L ([id number])[facility] ([facility])[address] [place] [address] Monocytes (Bld) [#/Vol] 1.09 x10*3/uL High 0.10-1.00 [facility] Comment on above: Performed By: #### 5 7021-8 ####BHANU FLEMINGMOTZER L ([id number])[facility] ([facility])[address] [place] [address] Monocytes/100 WBC (Bld) 14.8 % Normal 2.0-10.0 [facility] Comment on above: Performed By: #### 5 7021-8 ####BHANU GREGORY L ([id number])[facility] ([facility])[address] [place] [address] Neutrophils (Bld) [#/Vol] 4.51 x10*3/uL Normal 1.20-7.70 [facility] Comment on above: Result Comment: Perc ent differential counts (%) should be interpreted in the context of the absolute cell counts (cells/uL). Performed By: #### 5 7021-8 ####BHANU FLEMINGMOTZALANNA L ([id number])[facility] ([facility])[address] [place] [address] Neutrophils/100 WBC (Bld) 61.3 % Normal 40.0-80.0 [facility] Comment on above: Performed By: #### 5 7021-8 ####BHANU FLEMINGMOTZER L ([id number])[facility] LAB ([facility])[address] [place] [address] Nucleated RBC/100 WBC (Bld) [Ratio] 0.0 /100 WBCs Normal 0.0-0.0 [facility] Comment on above: Performed By: #### 5 7021-8 ####BHANU FLEMINGMOTZER L ([id number])[facility] ([facility])[address] [place] [address] Platelets (Bld) [#/Vol] 620 x10*3/uL High 150-450 [facility] Comment on above: Performed By: #### 5 7021-8 ####BHANU Treviño ([id number])[facility] ([facility])[address]82 [place] [address] RBC (Bld) [#/Vol] 3.45 x10*6/uL Low 4.50-5.90 [facility] Comment on above: Performed By: #### 5 7021-8 ####BHNAU Treviño ([id number])[facility] ([facility])[address]432 [place] [address] WBC (Bld) [#/Vol] 7.4 x10*3/uL Normal 4.4-11.3 [facility] Comment on above: Performed By: #### 5 7021-8 ####BHANU Treviño ([id number])[facility] ([facility])[address]608 [place] [address] Comprehensive metabolic 2000 panelon 01-28-2025 Albumin BCP dye [Mass/Vol] 2.3 g/dL Low 3.4-5.0 [facility] Comment on above: Performed By: #### 2 4323-8 ####BHANU Treviño ([id number])[facility] ([facility])[address]557 [place] [address] ALP [Catalytic activity/Vol] 72 U/L Normal 33-120 [facility] Comment on above: Performed By: #### 2 4323-8 ####BHANU Treviño ([id number])[facility] ([facility])[address]69 [place] [address] ALT With P-5'-P [Catalytic activity/Vol] 35 U/L Normal 10-52 [facility] Comment on above: Result Comment: Sydni ents treated with Sulfasalazine may generate falsely decreased results for ALT. Performed By: #### 2 4323-8 ####BHANU Treviño (90531)[facility] ([facility])[address]672 [place] [address] Anion gap [Moles/Vol] 13 mmol/L Normal 10-20 [facility] Comment on above: Performed By: #### 2 4323-8 ####BHANU Treviño (80730)[facility] ([facility])[address] [place] [address] AST With P-5'-P [Catalytic activity/Vol] 32 U/L Normal 9-39 [facility] Comment on above: Performed By: #### 2 4323-8 ####BHANU Treviño ([id number])[facility] ([facility])[address]88 [place] [address] Bilirubin [Mass/Vol] 0.3 mg/dL Normal 0.0-1.2 [facility] Comment on above: Performed By: #### 2 4323-8 ####BHANU Treviño ([id number])[facility] ([facility])[address]43 [place] [address] Calcium [Mass/Vol] 8.0 mg/dL Low 8.6-10.6 [facility] Comment on above: Performed By: #### 2 4323-8 ####BHANU Treviño ([id number])[facility] ([facility])[address] [place] [address] Chloride [Moles/Vol] 102 mmol/L Normal 98-107 [facility] Comment on above: Performed By: #### 2 4323-8 ####BHANU Treviño ([id number])[facility] ([facility])[address]572 [place] [address] CO2 [Moles/Vol] 28 mmol/L Normal 21-32 [facility] Comment on above: Performed By: #### 2 4323-8 ####BHANU Treviño ([id number])[facility] ([facility])[address]71 [place] [address] Creatinine [Mass/Vol] 1.07 mg/dL Normal 0.50-1.30 [facility] Comment on above: Performed By: #### 2 4323-8 ####BHANU Treviño ([id number])[facility] ([facility])[address] [place] [address] Glomerular filtration rate/1.73 sq M.predicted 84 mL/min/1.73m*2 Normal >60 [facility] Comment on above: Result Comment: Calc ulations of estimated GFR are performed using the 2020 CKD-EPI Study Refit equation without the race variable for the IDMS-Traceable creatinine methods.https://jasn.asnjournals.org/content/ /ASN.9353382207 Performed By: #### 2 4323-8 ####BHANU Treviño ([id number])[facility] ([facility])[address]36 [place] [address] Glucose [Mass/Vol] 113 mg/dL High 74-99 [facility] Comment on above: Performed By: #### 2 4323-8 ####BHANU GREGORY L (49934)[facility] ([facility])[address]709 [place] [address] Potassium [Moles/Vol] 4.5 mmol/L Normal 3.5-5.3 [facility] Comment on above: Performed By: #### 2 4323-8 ####BHANU GREGORY L (31077)[facility] ([facility])[address]887 [place] [address] Protein [Mass/Vol] 6.0 g/dL Low 6.4-8.2 [facility] Comment on above: Performed By: #### 2 4323-8 ####BHANU GREGORY L ([id number])[facility] ([facility])[address]132 [place] [address] Sodium [Moles/Vol] 138 mmol/L Normal 136-145 [facility] Comment on above: Performed By: #### 2 4323-8 ####BHANU GREGORY L ([id number])[facility] ([facility])[address]263 [place] [address] Urea nitrogen [Mass/Vol] 11 mg/dL Normal 6-23 [facility] Comment on above: Performed By: #### 2 4323-8 ####BHANU Treviño ([id number])[facility] ([facility])[address]38 [place] [address] Lactateon 01-28-2025 Lactate [Moles/Vol] 1.4 mmol/L Normal 0.4-2.0 [facility] Comment on above: Order Comment: Venip uncture immediately after or during the administration of Metamizole may lead to falsely low results. Testing should be performed immediately prior to Metamizole dosing. Performed By: #### 2 524-7 ####BHANU Treviño ([id number])[facility] ([facility])[address]65 [place] [address] Magnesiumon 01-28-2025 Magnesium [Mass/Vol] 1.92 mg/dL Normal 1.60-2.40 [facility] Comment on above: Performed By: #### 1 9123-9 ####BHANU Treviño ([id number])[facility] ([facility])[address]602 [place] [address] Blood type and Indirect anti body screen panel (Bld)on 01-27-2025 ABO group Nom (Bld) A Normal [facility] Comment on above: Performed By: #### 3 4532-2 ####BHANU Treviño ([id number])[facility] ([facility])[address] [facility] [place] [address] Blood group antibody screen Ql Negative [facility] Comment on above: Performed By: #### 3 4532-2 ####BHANU Treviño ([id number])[facility] ([facility])[address] [facility] [address] D Ag Ql (Bld) Positive [facility] Comment on above: Performed By: #### 3 4532-2 ####BHANU Treviño ([id number])[facility] ([facility])[address] [place] [address] CBC W Auto Differential pane l (Bld)on 01-27-2025 Basophils (Bld) [#/Vol] 0.08 x10*3/uL Normal 0.00-0.10 [facility] Comment on above: Performed By: #### 5 7021-8 ####BHANU Treviño ([id number])[facility] ([facility])[address]287 [place] [address] Basophils/100 WBC (Bld) 1.1 % Normal 0.0-2.0 [facility] Comment on above: Performed By: #### 5 7021-8 ####BHANU Treviño (58986)[facility] ([facility])[address] [place] [address] Eosinophils (Bld) [#/Vol] 0.07 x10*3/uL Normal 0.00-0.70 [facility] Comment on above: Performed By: #### 5 7021-8 ####BHANU Treviño (23232)[facility] ([facility])[address]759 [place] [address] Eosinophils/100 WBC (Bld) 0.9 % Normal 0.0-6.0 [facility] Comment on above: Performed By: #### 5 7021-8 ####BHANU Treviño ([id number])[facility] ([facility])[address]15 [place] [address] Erythrocyte distribution width (RBC) [Ratio] 19.8 % High 11.5-14.5 [facility] Comment on above: Performed By: #### 5 7021-8 ####BHANU Treviño (76551)[facility] ([facility])[address]128 [place] [address] Hematocrit (Bld) [Volume fraction] 27.5 % Low 41.0-52.0 [facility] Comment on above: Performed By: #### 5 7021-8 ####BHANU Treviño ([id number])[facility] ([facility])[address]344 [place] [address] Hemoglobin (Bld) [Mass/Vol] 8.5 g/dL Low 13.5-17.5 [facility] Comment on above: Performed By: #### 5 7021-8 ####BHANU Treviño ([id number])[facility] ([facility])[address]54 [place] [address] Immature granulocytes (Bld) [#/Vol] 0.03 x10*3/uL Normal 0.00-0.70 [facility] Comment on above: Performed By: #### 5 7021-8 ####BHANU Treviño (90630)[facility] ([facility])[address]26 [place] [address] Immature granulocytes/100 WBC (Bld) 0.4 % Normal 0.0-0.9 [facility] Comment on above: Result Comment: Christine ture Granulocyte Count (IG) includes promyelocytes, myelocytes and metamyelocytes but does not include bands. Percent differential counts (%) should be interpreted in the context of the absolute cell counts (cells/UL). Performed By: #### 5 7021-8 ####BHANU Treviño ([id number])[facility] ([facility])[address]288 [place] [address] Lymphocytes (Bld) [#/Vol] 1.18 x10*3/uL Low 1.20-4.80 [facility] Comment on above: Performed By: #### 5 7021-8 ####BHANU Treviño ([id number])[facility] ([facility])[address]241 [place] [address] Lymphocytes/100 WBC (Bld) 15.7 % Normal 13.0-44.0 [facility] Comment on above: Performed By: #### 5 7021-8 ####BHANU Treviño ([id number])[facility] ([facility])[address]121 [place] [address] MCH (RBC) [Entitic mass] 23.9 pg Low 26.0-34.0 [facility] Comment on above: Performed By: #### 5 7021-8 ####BHANU Treviño ([id number])[facility] ([facility])[address]48 [place] [address] MCHC (RBC) [Mass/Vol] 30.9 g/dL Low 32.0-36.0 [facility] Comment on above: Performed By: #### 5 7021-8 ####BHANU Treviño ([id number])[facility] ([facility])[address]303 [place] [address] MCV (RBC) [Entitic vol] 78 fL Low 80-100 [facility] Comment on above: Performed By: #### 5 7021-8 ####BHANU Treviño ([id number])[facility] ([facility])[address] [place] [address] Monocytes (Bld) [#/Vol] 1.05 x10*3/uL High 0.10-1.00 [facility] Comment on above: Performed By: #### 5 7021-8 ####BHANU Treviño ([id number])[facility] ([facility])[address]41 [place] [address] Monocytes/100 WBC (Bld) 14.0 % Normal 2.0-10.0 [facility] Comment on above: Performed By: #### 5 7021-8 ####BHANU Treviño (74828)[facility] ([facility])[address]78 [place] [address] Neutrophils (Bld) [#/Vol] 5.09 x10*3/uL Normal 1.20-7.70 [facility] Comment on above: Result Comment: Perc ent differential counts (%) should be interpreted in the context of the absolute cell counts (cells/uL). Performed By: #### 5 7021-8 ####BHANU Treviño ([id number])[facility] ([facility])[address]75 [place] [address] Neutrophils/100 WBC (Bld) 67.9 % Normal 40.0-80.0 [facility] Comment on above: Performed By: #### 5 7021-8 ####BHANU Treviño (66086)[facility] ([facility])[address] [place] [address] Nucleated RBC/100 WBC (Bld) [Ratio] 0.0 /100 WBCs Normal 0.0-0.0 [facility] Comment on above: Performed By: #### 5 7021-8 ####BHANU Treviño (75648)[facility] ([facility])[address] [place] [address] Platelets (Bld) [#/Vol] 644 x10*3/uL High 150-450 [facility] Comment on above: Performed By: #### 5 7021-8 ####BHANU GREGORY L (50618)[facility] ([facility])[address] [place] [address] RBC (Bld) [#/Vol] 3.55 x10*6/uL Low 4.50-5.90 [facility] Comment on above: Performed By: #### 5 7021-8 ####BHANU GREGORY L ([id number])[facility] ([facility])[address] [place] [address] WBC (Bld) [#/Vol] 7.5 x10*3/uL Normal 4.4-11.3 [facility] Comment on above: Performed By: #### 5 7021-8 ####BHANU GREGORY L (59310)[facility] ([facility])[address] [place] [address] Comprehensive metabolic 2000 panelon 01-27-2025 Albumin BCP dye [Mass/Vol] 2.3 g/dL Low 3.4-5.0 [facility] Comment on above: Performed By: #### 2 4323-8 ####BHANU GREGORY L ([id number])[facility] ([facility])[address] [place] [address] ALP [Catalytic activity/Vol] 70 U/L Normal 33-120 [facility] Comment on above: Performed By: #### 2 4323-8 ####BHANU Treviño (47242)[facility] ([facility])[address]887 [place] [address] ALT With P-5'-P [Catalytic activity/Vol] 40 U/L Normal 10-52 [facility] Comment on above: Result Comment: Sydni ents treated with Sulfasalazine may generate falsely decreased results for ALT. Performed By: #### 2 4323-8 ####BHANU Treviño (84329)[facility] ([facility])[address]49 [place] [address] Anion gap [Moles/Vol] 11 mmol/L Normal 10-20 [facility] Comment on above: Performed By: #### 2 4323-8 ####BHANU Treviño (56637)[facility] ([facility])[address]228 [place] [address] AST With P-5'-P [Catalytic activity/Vol] 53 U/L High 9-39 [facility] Comment on above: Performed By: #### 2 4323-8 ####BHANU Treviño ([id number])[facility] ([facility])[address]323 [place] [address] Bilirubin [Mass/Vol] 0.4 mg/dL Normal 0.0-1.2 [facility] Comment on above: Performed By: #### 2 4323-8 ####BHANU Treviño (40768)[facility] ([facility])[address]350 [place] [address] Calcium [Mass/Vol] 8.1 mg/dL Low 8.6-10.6 [facility] Comment on above: Performed By: #### 2 4323-8 ####BHANU Treviño (55070)[facility] ([facility])[address]1906 [place] [address] Chloride [Moles/Vol] 101 mmol/L Normal 98-107 [facility] Comment on above: Performed By: #### 2 4323-8 ####BHANU Treviño (40459)[facility] ([facility])54652 [place] [address] CO2 [Moles/Vol] 29 mmol/L Normal 21-32 [facility] Comment on above: Performed By: #### 2 4323-8 ####BHANU Treviño (75343)[facility] ([facility])[address]269 [place] [address] Creatinine [Mass/Vol] 1.22 mg/dL Normal 0.50-1.30 [facility] Comment on above: Performed By: #### 2 4323-8 ####BHANU Treviño (64761)[facility] ([facility])[address]32 [place] [address] Glomerular filtration rate/1.73 sq M.predicted 72 mL/min/1.73m*2 Normal >60 [facility] Comment on above: Result Comment: Calc ulations of estimated GFR are performed using the 2020 CKD-EPI Study Refit equation without the race variable for the IDMS-Traceable creatinine methods.https://jasn.asnjournals.org/content/early/ /ASN.6261156649 Performed By: #### 2 4323-8 ####BHANU Treviño ([id number])[facility] ([facility])25226 [place] [address] Glucose [Mass/Vol] 86 mg/dL Normal 74-99 [facility] Comment on above: Performed By: #### 2 4323-8 ####BHANU Treviño ([id number])[facility] ([facility])43616 [place] [address] Potassium [Moles/Vol] 4.1 mmol/L Normal 3.5-5.3 [facility] Comment on above: Performed By: #### 2 4323-8 ####BHANU Treviño (78606)[facility] ([facility])[address]809 [place] [address] Protein [Mass/Vol] 6.5 g/dL Normal 6.4-8.2 [facility] Comment on above: Performed By: #### 2 4323-8 ####BHANU Treviño (79394)[facility] ([facility])48472 [place] [address] Sodium [Moles/Vol] 137 mmol/L Normal 136-145 [facility] Comment on above: Performed By: #### 2 4323-8 ####BHANU Treviño ([id number])[facility] ([facility])[address] [place] [address] Urea nitrogen [Mass/Vol] 8 mg/dL Normal 6-23 [facility] Comment on above: Performed By: #### 2 4323-8 ####BHANU Treviño ([id number])[facility] ([facility])[address] [place] [address] Magnesiumon 01-27-2025 Magnesium [Mass/Vol] 1.92 mg/dL Normal 1.60-2.40 [facility] Comment on above: Performed By: #### 1 9123-9 ####BHANU Treviño ([id number])[facility] ([facility])[address] [place] [address] CBC W Auto Differential pane l (Bld)on 01-26-2025 Basophils (Bld) [#/Vol] 0.07 x10*3/uL Normal 0.00-0.10 [facility] Comment on above: Performed By: #### 5 7021-8 ####BHANU Treviño ([id number])[facility] ([facility])[address] [place] [address] Basophils/100 WBC (Bld) 0.8 % Normal 0.0-2.0 [facility] Comment on above: Performed By: #### 5 7021-8 ####BHANU Treviño ([id number])[facility] ([facility])34344 [place] [address] Eosinophils (Bld) [#/Vol] 0.40 x10*3/uL Normal 0.00-0.70 [facility] Comment on above: Performed By: #### 5 7021-8 ####BHANU Treviño ([id number])[facility] ([facility])[address]26 [place] [address] Eosinophils/100 WBC (Bld) 4.6 % Normal 0.0-6.0 [facility] Comment on above: Performed By: #### 5 7021-8 ####BHANU Treviño ([id number])[facility] ([facility])[address] [place] [address] Erythrocyte distribution width (RBC) [Ratio] 19.9 % High 11.5-14.5 [facility] Comment on above: Performed By: #### 5 7021-8 ####BHANU Treviño ([id number])[facility] ([facility])[address] [place] [address] Hematocrit (Bld) [Volume fraction] 28.3 % Low 41.0-52.0 [facility] Comment on above: Performed By: #### 5 7021-8 ####BHANU Treviño ([id number])[facility] ([facility])[address] [place] [address] Hemoglobin (Bld) [Mass/Vol] 8.7 g/dL Low 13.5-17.5 [facility] Comment on above: Performed By: #### 5 7021-8 ####BHANU GREGORY L ([id number])[facility] ([facility])63137 [place] [address] Immature granulocytes (Bld) [#/Vol] 0.04 x10*3/uL Normal 0.00-0.70 [facility] Comment on above: Performed By: #### 5 7021-8 ####BHANU Treviño ([id number])[facility] ([facility])[address] [place] [address] 14020 Immature granulocytes/100 WBC (Bld) 0.5 % Normal 0.0-0.9 [facility] Comment on above: Result Comment: Christine ture Granulocyte Count (IG) includes promyelocytes, myelocytes and metamyelocytes but does not include bands. Percent differential counts (%) should be interpreted in the context of the absolute cell counts (cells/UL). Performed By: #### 5 7021-8 ####BHANU Treviño (13961)[facility] ([facility])[address]1 [place] [address] Lymphocytes (Bld) [#/Vol] 1.23 x10*3/uL Normal 1.20-4.80 [facility] Comment on above: Performed By: #### 5 7021-8 ####BHANU Treviño ([id number])[facility] ([facility])[address]23 [place] [address] Lymphocytes/100 WBC (Bld) 14.1 % Normal 13.0-44.0 [facility] Comment on above: Performed By: #### 5 7021-8 ####BHANU Treviño ([id number])[facility] ([facility])[address]4847 [place] [address] MCH (RBC) [Entitic mass] 24.2 pg Low 26.0-34.0 [facility] Comment on above: Performed By: #### 5 7021-8 ####BHANU Treviño ([id number])[facility] ([facility])[address]2857 [place] [address] MCHC (RBC) [Mass/Vol] 30.7 g/dL Low 32.0-36.0 [facility] Comment on above: Performed By: #### 5 7021-8 ####BHANU Treviño ([id number])[facility] ([facility])18731 [place] [address] MCV (RBC) [Entitic vol] 79 fL Low 80-100 [facility] Comment on above: Performed By: #### 5 7021-8 ####BHANU Treviño ([id number])[facility] ([facility])03756 [place] [address] Monocytes (Bld) [#/Vol] 1.06 x10*3/uL High 0.10-1.00 [facility] Comment on above: Performed By: #### 5 7021-8 ####BHANU Treviño ([id number])[facility] ([facility])[address]2775 [place] [address] Monocytes/100 WBC (Bld) 12.2 % Normal 2.0-10.0 [facility] Comment on above: Performed By: #### 5 7021-8 ####BHANU Treviño (43998)[facility] ([facility])[address]199 [place] [address] Neutrophils (Bld) [#/Vol] 5.92 x10*3/uL Normal 1.20-7.70 [facility] Comment on above: Result Comment: Perc ent differential counts (%) should be interpreted in the context of the absolute cell counts (cells/uL). Performed By: #### 5 7021-8 ####BHANU Treviño ([id number])[facility] ([facility])[address] [place] [address] Neutrophils/100 WBC (Bld) 67.8 % Normal 40.0-80.0 [facility] Comment on above: Performed By: #### 5 7021-8 ####BHANU Treviño ([id number])[facility] ([facility])[address] [place] [address] Nucleated RBC/100 WBC (Bld) [Ratio] 0.0 /100 WBCs Normal 0.0-0.0 [facility] Comment on above: Performed By: #### 5 7021-8 ####BHANU Treviño ([id number])[facility] ([facility])[address] [place] [address] Platelets (Bld) [#/Vol] 713 x10*3/uL High 150-450 [facility] Comment on above: Performed By: #### 5 7021-8 ####BHANU Treviño ([id number])[facility] ([facility])[address] [place] [address] RBC (Bld) [#/Vol] 3.60 x10*6/uL Low 4.50-5.90 [facility] Comment on above: Performed By: #### 5 7021-8 ####BHANU Treviño ([id number])[facility] ([facility])[address] [place] [address] WBC (Bld) [#/Vol] 8.7 x10*3/uL Normal 4.4-11.3 [facility] Comment on above: Performed By: #### 5 7021-8 ####BHANU Treviño ([id number])[facility] ([facility])[address] [place] [address] Comprehensive metabolic 2000 panelon 01-26-2025 Albumin BCP dye [Mass/Vol] 2.4 g/dL Low 3.4-5.0 [facility] Comment on above: Performed By: #### 2 4323-8 ####BHANU Treviño ([id number])[facility] ([facility])[address] [place] [address] ALP [Catalytic activity/Vol] 74 U/L Normal 33-120 [facility] Comment on above: Performed By: #### 2 4323-8 ####BHANU GREGORY L ([id number])[facility] ([facility])[address] [place] [address] ALT With P-5'-P [Catalytic activity/Vol] 38 U/L Normal 10-52 [facility] Comment on above: Result Comment: Sydni ents treated with Sulfasalazine may generate falsely decreased results for ALT. Performed By: #### 2 4323-8 ####BHANU Treviño ([id number])[facility] ([facility])[address] [place] [address] Anion gap [Moles/Vol] 12 mmol/L Normal 10-20 [facility] Comment on above: Performed By: #### 2 4323-8 ####BHANU Treviño ([id number])[facility] ([facility])[address] [place] [address] AST With P-5'-P [Catalytic activity/Vol] 55 U/L High 9-39 [facility] Comment on above: Performed By: #### 2 4323-8 ####BHANU Treviño ([id number])[facility] ([facility])[address] [place] [address] Bilirubin [Mass/Vol] 0.3 mg/dL Normal 0.0-1.2 [facility] Comment on above: Performed By: #### 2 4323-8 ####BHANU Treviño ([id number])[facility] ([facility])[address]771 [place] [address] Calcium [Mass/Vol] 8.3 mg/dL Low 8.6-10.6 [facility] Comment on above: Performed By: #### 2 4323-8 ####BHANU Treviño ([id number])[facility] ([facility])[address] [place] [address] Chloride [Moles/Vol] 102 mmol/L Normal 98-107 [facility] Comment on above: Performed By: #### 2 4323-8 ####BHANU Treviño ([id number])[facility] ([facility])[address] [place] [address] CO2 [Moles/Vol] 29 mmol/L Normal 21-32 [facility] Comment on above: Performed By: #### 2 4323-8 ####BHANU Treviño ([id number])[facility] ([facility])[address] [place] [address] Creatinine [Mass/Vol] 1.29 mg/dL Normal 0.50-1.30 [facility] Comment on above: Performed By: #### 2 4323-8 ####BHANU Treviño ([id number])[facility] ([facility])[address] [place] [address] Glomerular filtration rate/1.73 sq M.predicted 67 mL/min/1.73m*2 Normal >60 [facility] Comment on above: Result Comment: Calc ulations of estimated GFR are performed using the 2020 CKD-EPI Study Refit equation without the race variable for the IDMS-Traceable creatinine methods.https://jasn.asnjournals.org/content/early/ /ASN.9611989869 Performed By: #### 2 4323-8 ####BHANU Treviño ([id number])[facility] ([facility])[address]335 [place] [address] Glucose [Mass/Vol] 100 mg/dL High 74-99 [facility] Comment on above: Performed By: #### 2 4323-8 ####BHANU Treviño ([id number])[facility] ([facility])[address]98 [place] [address] Potassium [Moles/Vol] 4.0 mmol/L Normal 3.5-5.3 [facility] Comment on above: Performed By: #### 2 4323-8 ####BHANU GREGORY L ([id number])[facility] ([facility])[address] [place] [address] Protein [Mass/Vol] 6.6 g/dL Normal 6.4-8.2 [facility] Comment on above: Performed By: #### 2 4323-8 ####BHANU GREGORY L ([id number])[facility] ([facility])[address]36 [place] [address] Sodium [Moles/Vol] 139 mmol/L Normal 136-145 [facility] Comment on above: Performed By: #### 2 4323-8 ####BHANU GREGORY L ([id number])[facility] ([facility])[address]48 [place] [address] Urea nitrogen [Mass/Vol] 9 mg/dL Normal 6-23 [facility] Comment on above: Performed By: #### 2 4323-8 ####BHANU MATOSER Kamila ([id number])[facility] ([facility])[id number] [place] [address] Magnesiumon 01-26-2025 Magnesium [Mass/Vol] 2.06 mg/dL Normal 1.60-2.40 [facility] Comment on above: Performed By: #### 1 9123-9 ####BHANU Treviño ([id number])[facility] ([facility])[id number] [place] [address] CBC W Auto Differential pane l (d)on 01-25-2025 Erythrocyte distribution width (RBC) [Ratio] 19.8 % High 11.5-14.5 [facility] Comment on above: Order Comment: The p reviously reported component Neutrophils % is no longer being reported.The previously reported component Lymphocytes % is no longer being reported.The previously reported component Monocytes % is no longer being reported.The previously reported component Eosinophils % is no longer being reported.The previously reported component Basophils % is no longer being reported.The previously reported component Absolute Neutrophils is no longer being reported.The previously reported component Absolute Lymphocytes is no longer being reported.The previously reported component Absolute Monocytes is no longer being reported.The previously reported component Absolute Eosinophils is no longer being reported.The previously reported component Absolute Basophils is no longer being reported. Performed By: #### 5 7021-8 ####BHANU Treviño ([id number])[facility] ([facility])[address]443 [place] [address] Hematocrit (Bld) [Volume fraction] 28.8 % Low 41.0-52.0 [facility] Comment on above: Order Comment: The p reviously reported component Neutrophils % is no longer being reported.The previously reported component Lymphocytes % is no longer being reported.The previously reported component Monocytes % is no longer being reported.The previously reported component Eosinophils % is no longer being reported.The previously reported component Basophils % is no longer being reported.The previously reported component Absolute Neutrophils is no longer being reported.The previously reported component Absolute Lymphocytes is no longer being reported.The previously reported component Absolute Monocytes is no longer being reported.The previously reported component Absolute Eosinophils is no longer being reported.The previously reported component Absolute Basophils is no longer being reported. Performed By: #### 5 7021-8 ####BHANU Trevioñ ([id number])[facility] ([facility])[address]16 [place] [address] Hemoglobin (Bld) [Mass/Vol] 9.0 g/dL Low 13.5-17.5 [facility] Comment on above: Order Comment: The p reviously reported component Neutrophils % is no longer being reported.The previously reported component Lymphocytes % is no longer being reported.The previously reported component Monocytes % is no longer being reported.The previously reported component Eosinophils % is no longer being reported.The previously reported component Basophils % is no longer being reported.The previously reported component Absolute Neutrophils is no longer being reported.The previously reported component Absolute Lymphocytes is no longer being reported.The previously reported component Absolute Monocytes is no longer being reported.The previously reported component Absolute Eosinophils is no longer being reported.The previously reported component Absolute Basophils is no longer being reported. Performed By: #### 5 7021-8 ####BHANU Treviño ([id number])[facility] ([facility])[address] [place] [address] Immature granulocytes (Bld) [#/Vol] 0.06 x10*3/uL Normal 0.00-0.70 [facility] Comment on above: Order Comment: The p reviously reported component Neutrophils % is no longer being reported.The previously reported component Lymphocytes % is no longer being reported.The previously reported component Monocytes % is no longer being reported.The previously reported component Eosinophils % is no longer being reported.The previously reported component Basophils % is no longer being reported.The previously reported component Absolute Neutrophils is no longer being reported.The previously reported component Absolute Lymphocytes is no longer being reported.The previously reported component Absolute Monocytes is no longer being reported.The previously reported component Absolute Eosinophils is no longer being reported.The previously reported component Absolute Basophils is no longer being reported. Performed By: #### 5 7021-8 ####BHANU Treviño ([id number])[facility] ([facility])[address] [place] [address] Immature granulocytes/100 WBC (Bld) 0.6 % Normal 0.0-0.9 [facility] Comment on above: Order Comment: The p reviously reported component Neutrophils % is no longer being reported.The previously reported component Lymphocytes % is no longer being reported.The previously reported component Monocytes % is no longer being reported.The previously reported component Eosinophils % is no longer being reported.The previously reported component Basophils % is no longer being reported.The previously reported component Absolute Neutrophils is no longer being reported.The previously reported component Absolute Lymphocytes is no longer being reported.The previously reported component Absolute Monocytes is no longer being reported.The previously reported component Absolute Eosinophils is no longer being reported.The previously reported component Absolute Basophils is no longer being reported. Result Comment: Christine ture Granulocyte Count (IG) includes promyelocytes, myelocytes and metamyelocytes but does not include bands. Percent differential counts (%) should be interpreted in the context of the absolute cell counts (cells/UL). Performed By: #### 5 7021-8 ####BHANU Treviño ([id number])[facility] ([facility])[address] [place] [address] MCH (RBC) [Entitic mass] 24.6 pg Low 26.0-34.0 [facility] Comment on above: Order Comment: The p reviously reported component Neutrophils % is no longer being reported.The previously reported component Lymphocytes % is no longer being reported.The previously reported component Monocytes % is no longer being reported.The previously reported component Eosinophils % is no longer being reported.The previously reported component Basophils % is no longer being reported.The previously reported component Absolute Neutrophils is no longer being reported.The previously reported component Absolute Lymphocytes is no longer being reported.The previously reported component Absolute Monocytes is no longer being reported.The previously reported component Absolute Eosinophils is no longer being reported.The previously reported component Absolute Basophils is no longer being reported. Performed By: #### 5 7021-8 ####BHANU Treviño ([id number])[facility] ([facility])[address] [place] [address] MCHC (RBC) [Mass/Vol] 31.3 g/dL Low 32.0-36.0 [facility] Comment on above: Order Comment: The p reviously reported component Neutrophils % is no longer being reported.The previously reported component Lymphocytes % is no longer being reported.The previously reported component Monocytes % is no longer being reported.The previously reported component Eosinophils % is no longer being reported.The previously reported component Basophils % is no longer being reported.The previously reported component Absolute Neutrophils is no longer being reported.The previously reported component Absolute Lymphocytes is no longer being reported.The previously reported component Absolute Monocytes is no longer being reported.The previously reported component Absolute Eosinophils is no longer being reported.The previously reported component Absolute Basophils is no longer being reported. Performed By: #### 5 7021-8 ####BHANU Treviño ([id number])[facility] ([facility])[address] [place] [address] MCV (RBC) [Entitic vol] 79 fL Low 80-100 [facility] Comment on above: Order Comment: The p reviously reported component Neutrophils % is no longer being reported.The previously reported component Lymphocytes % is no longer being reported.The previously reported component Monocytes % is no longer being reported.The previously reported component Eosinophils % is no longer being reported.The previously reported component Basophils % is no longer being reported.The previously reported component Absolute Neutrophils is no longer being reported.The previously reported component Absolute Lymphocytes is no longer being reported.The previously reported component Absolute Monocytes is no longer being reported.The previously reported component Absolute Eosinophils is no longer being reported.The previously reported component Absolute Basophils is no longer being reported. Performed By: #### 5 7021-8 ####BHANU Treviño ([id number])[facility] ([facility])[address] [place] [address] Nucleated RBC/100 WBC (Bld) [Ratio] 0.0 /100 WBCs Normal 0.0-0.0 [facility] Comment on above: Order Comment: The p reviously reported component Neutrophils % is no longer being reported.The previously reported component Lymphocytes % is no longer being reported.The previously reported component Monocytes % is no longer being reported.The previously reported component Eosinophils % is no longer being reported.The previously reported component Basophils % is no longer being reported.The previously reported component Absolute Neutrophils is no longer being reported.The previously reported component Absolute Lymphocytes is no longer being reported.The previously reported component Absolute Monocytes is no longer being reported.The previously reported component Absolute Eosinophils is no longer being reported.The previously reported component Absolute Basophils is no longer being reported. Performed By: #### 5 7021-8 ####BHANU LAUREANOTZER L ([id number])[facility] ([facility])[address] [place] [address] Platelets (Bld) [#/Vol] 753 x10*3/uL High 150-450 [facility] Comment on above: Order Comment: The p reviously reported component Neutrophils % is no longer being reported.The previously reported component Lymphocytes % is no longer being reported.The previously reported component Monocytes % is no longer being reported.The previously reported component Eosinophils % is no longer being reported.The previously reported component Basophils % is no longer being reported.The previously reported component Absolute Neutrophils is no longer being reported.The previously reported component Absolute Lymphocytes is no longer being reported.The previously reported component Absolute Monocytes is no longer being reported.The previously reported component Absolute Eosinophils is no longer being reported.The previously reported component Absolute Basophils is no longer being reported. Performed By: #### 5 7021-8 ####BHANU FLEMINGMOTZER L ([id number])[facility] ([facility])[address]605 [place] [address] RBC (Bld) [#/Vol] 3.66 x10*6/uL Low 4.50-5.90 [facility] Comment on above: Order Comment: The p reviously reported component Neutrophils % is no longer being reported.The previously reported component Lymphocytes % is no longer being reported.The previously reported component Monocytes % is no longer being reported.The previously reported component Eosinophils % is no longer being reported.The previously reported component Basophils % is no longer being reported.The previously reported component Absolute Neutrophils is no longer being reported.The previously reported component Absolute Lymphocytes is no longer being reported.The previously reported component Absolute Monocytes is no longer being reported.The previously reported component Absolute Eosinophils is no longer being reported.The previously reported component Absolute Basophils is no longer being reported. Performed By: #### 5 7021-8 ####BHANU SCHMOTZER L ([id number])[facility] ([facility])[address] [place] [address] WBC (Bld) [#/Vol] 10.7 x10*3/uL Normal 4.4-11.3 [facility] Comment on above: Order Comment: The p reviously reported component Neutrophils % is no longer being reported.The previously reported component Lymphocytes % is no longer being reported.The previously reported component Monocytes % is no longer being reported.The previously reported component Eosinophils % is no longer being reported.The previously reported component Basophils % is no longer being reported.The previously reported component Absolute Neutrophils is no longer being reported.The previously reported component Absolute Lymphocytes is no longer being reported.The previously reported component Absolute Monocytes is no longer being reported.The previously reported component Absolute Eosinophils is no longer being reported.The previously reported component Absolute Basophils is no longer being reported. Performed By: #### 5 7021-8 ####BHANU GREGORY L ([id number])[facility] ([facility])[address] [place] [address] Comprehensive metabolic 2000 panelon 01-25-2025 Albumin BCP dye [Mass/Vol] 2.5 g/dL Low 3.4-5.0 [facility] Comment on above: Performed By: #### 2 4323-8 ####BHANU FLEMINGMOTZER L ([id number])[facility] ([facility])[address] [place] [address] ALP [Catalytic activity/Vol] 69 U/L Normal 33-120 [facility] Comment on above: Performed By: #### 2 4323-8 ####BHANU GREGORY L ([id number])[facility] ([facility])[address] [place] [address] ALT With P-5'-P [Catalytic activity/Vol] 34 U/L Normal 10-52 [facility] Comment on above: Result Comment: Sydni ents treated with Sulfasalazine may generate falsely decreased results for ALT. Performed By: #### 2 4323-8 ####BHANU FLEMINGMOTZER L ([id number])[facility] ([facility])[address] [place] [address] Anion gap [Moles/Vol] 14 mmol/L Normal 10-20 [facility] Comment on above: Performed By: #### 2 4323-8 ####BHANU GREGORY L ([id number])[facility] ([facility])[address] [place] [address] AST With P-5'-P [Catalytic activity/Vol] 43 U/L High 9-39 [facility] Comment on above: Performed By: #### 2 4323-8 ####BHANU Treviño ([id number])[facility] ([facility])[address] [place] [address] Bilirubin [Mass/Vol] 0.4 mg/dL Normal 0.0-1.2 [facility] Comment on above: Performed By: #### 2 432-8 ####BHANU Terviño ([id number])[facility] ([facility])[address] [place] [address] Calcium [Mass/Vol] 8.5 mg/dL Low 8.6-10.6 [facility] Comment on above: Performed By: #### 2 4323-8 ####BHANU Treviño ([id number])[facility] ([facility])[address] [place] [address] Chloride [Moles/Vol] 101 mmol/L Normal 98-107 [facility] Comment on above: Performed By: #### 2 4323-8 ####BHANU Treviño ([id number])[facility] ([facility])[address] [place] [address] CO2 [Moles/Vol] 26 mmol/L Normal 21-32 [facility] Comment on above: Performed By: #### 2 4323-8 ####BHANU Treviño ([id number])[facility] ([facility])[address] [place] [address] Creatinine [Mass/Vol] 1.11 mg/dL Normal 0.50-1.30 [facility] Comment on above: Performed By: #### 2 4323-8 ####BHANU Treviño ([id number])[facility] ([facility])[address] [place] [address] Glomerular filtration rate/1.73 sq M.predicted 80 mL/min/1.73m*2 Normal >60 [facility] Comment on above: Result Comment: Calc ulations of estimated GFR are performed using the 2020 CKD-EPI Study Refit equation without the race variable for the IDMS-Traceable creatinine methods.https://jasn.asnjournals.org/content/ /ASN.0419357173 Performed By: #### 2 4323-8 ####BHANU Treviño ([id number])[facility] ([facility])[address] [place] [address] Glucose [Mass/Vol] 100 mg/dL High 74-99 [facility] Comment on above: Performed By: #### 2 4323-8 ####BHANU Treviño ([id number])[facility] ([facility])[address] [place] [address] Potassium [Moles/Vol] 3.9 mmol/L Normal 3.5-5.3 [facility] Comment on above: Performed By: #### 2 4323-8 ####BHANU GREGORY L ([id number])[facility] ([facility])[address] [place] [address] Protein [Mass/Vol] 6.8 g/dL Normal 6.4-8.2 [facility] Comment on above: Performed By: #### 2 4323-8 ####BHANU GREGORY L ([id number])[facility] ([facility])[address]694 [place] [address] Sodium [Moles/Vol] 137 mmol/L Normal 136-145 [facility] Comment on above: Performed By: #### 2 4323-8 ####BHANU GREGORY L ([id number])[facility] ([facility])[address]252 [place] [address] Urea nitrogen [Mass/Vol] 8 mg/dL Normal 6-23 [facility] Comment on above: Performed By: #### 2 4323-8 ####BHANU GREGORY L ([id number])[facility] ([facility])[address] [place] [address] Magnesiumon 01-25-2025 Magnesium [Mass/Vol] 2.08 mg/dL Normal 1.60-2.40 [facility] Comment on above: Performed By: #### 1 9123-9 ####BHANU Treviño ([id number])[facility] ([facility])[address] [place] [address] Manual differential performe d Ql (Bld)on 01-25-2025 Band form neutrophils (Bld) [#/Vol] 0.28 x10*3/uL Normal 0.00-0.70 [facility] Comment on above: Performed By: #### 5 0957-0 ####BHANU Treviño ([id number])[facility] ([facility])[address]898 [place] [address] Band form neutrophils/100 WBC (Bld) 2.6 % Normal 0.0-5.0 [facility] Comment on above: Performed By: #### 5 0957-0 ####BHANU Treviño ([id number])[facility] ([facility])[address]88 [place] [address] Basophils (Bld) [#/Vol] 0.00 x10*3/uL Normal 0.00-0.10 [facility] Comment on above: Performed By: #### 5 0957-0 ####BHANU Treviño ([id number])[facility] ([facility])[address]66 [place] [address] Basophils/100 WBC (Bld) 0.0 % Normal 0.0-2.0 [facility] Comment on above: Performed By: #### 5 0957-0 ####BHANU Treviño ([id number])[facility] ([facility])[address]682 [place] [address] Cells Counted Total (Bld) [#] 116 Normal [facility] Comment on above: Performed By: #### 5 0957-0 ####BHANU Treviño ([id number])[facility] ([facility])[address] [place] [address] Eosinophils (Bld) [#/Vol] 0.09 x10*3/uL Normal 0.00-0.70 [facility] Comment on above: Performed By: #### 5 0957-0 ####BHANU Treviño ([id number])[facility] ([facility])[address]87 [place] [address] Eosinophils/100 WBC (Bld) 0.8 % Normal 0.0-6.0 [facility] Comment on above: Performed By: #### 5 57-0 ####BHANU Treviño ([id number])[facility] ([facility])[address]037 [place] [address] Hypochromia Ql (Bld) Mild Normal [facility] Comment on above: Performed By: #### 5 57-0 ####BHANU Treviño ([id number])[facility] ([facility])[id number] [place] [address] Lymphocytes (Bld) [#/Vol] 0.46 x10*3/uL Low 1.20-4.80 [facility] Comment on above: Performed By: #### 5 57-0 ####BHANU Treviño ([id number])[facility] ([facility])[address] [place] [address] Lymphocytes/100 WBC (Bld) 4.3 % Normal 13.0-44.0 [facility] Comment on above: Performed By: #### 5 57-0 ####BHANU GREGORY L ([id number])[facility] ([facility])[address] [place] [address] Monocytes (Bld) [#/Vol] 0.46 x10*3/uL Normal 0.10-1.00 [facility] Comment on above: Performed By: #### 5 57-0 ####BHANU GREGORY L ([id number])[facility] ([facility])[address] [place] [address] Monocytes/100 WBC (Bld) 4.3 % Normal 2.0-10.0 [facility] Comment on above: Performed By: #### 5 0957-0 ####BHANU Treviño ([id number])[facility] ([facility])[address] [place] [address] Neutrophils (Bld) [#/Vol] 9.60 x10*3/uL High 1.20-7.70 [facility] Comment on above: Performed By: #### 5 0957-0 ####BHANU Treviño ([id number])[facility] ([facility])[address] [place] [address] RBC morphology finding Nom (Bld) See Below [facility] Comment on above: Performed By: #### 5 0957-0 ####BHANU Treviño ([id number])[facility] ([facility])[address] [place] [address] Segmented neutrophils (Bld) [#/Vol] 9.32 x10*3/uL High 1.20-7.00 [facility] Comment on above: Performed By: #### 5 0957-0 ####BHANU Treviño ([id number])[facility] ([facility])[address]476 [place] [address] Segmented neutrophils/100 WBC (Bld) 87.1 % Normal 40.0-80.0 [facility] Comment on above: Result Comment: Perc ent differential counts (%) should be interpreted in the context of the absolute cell counts (cells/uL). Performed By: #### 5 0957-0 ####BHANU Treviño ([id number])[facility] ([facility])[address] [place] [address] Target cells LM Ql (Bld) Few [facility] Comment on above: Performed By: #### 5 0957-0 ####BHANU Treviño ([id number])[facility] ([facility])[address]27 [place] [address] Variant lymphocytes (Bld) [#/Vol] 0.10 x10*3/uL Normal 0.00-0.50 [facility] Comment on above: Performed By: #### 5 0957-0 ####BHANU Treviño ([id number])[facility] ([facility])[address] [place] [address] Variant lymphocytes/100 WBC (Bld) 0.9 % Normal 0.0-2.0 [facility] Comment on above: Performed By: #### 5 0957-0 ####BHANU Treviño ([id number])[facility] ([facility])[address] [place] [address] Bacteria identifiedon 2024 Bacteria identified Cx Nom (Unsp spec) Abnormal [facility] Comment on above: Performed By: #### 6 463-4 ####BHANU Treviño ([id number])[facility] ([facility])[id number] [place] [address] Blood type and Indirect anti body screen panel (Bld)on 01-24-2025 ABO group Nom (Bld) A Normal [facility] Comment on above: Performed By: #### 3 4532-2 ####BHANU Treviño ([id number])[facility] ([facility])[address] [place] [address] Blood group antibody screen Ql Negative Normal [facility] Comment on above: Performed By: #### 3 4532-2 ####BHANU Treviño ([id number])[facility] ([facility])[address] [place] [address] D Ag Ql (Bld) Positive Normal [facility] Comment on above: Performed By: #### 3 4532-2 ####BHANU Treviño ([id number])[facility] ([facility])[address] [place] [address] CBC W Auto Differential pane l (Bld)on 01-24-2025 Basophils (Bld) [#/Vol] 0.07 x10*3/uL Normal 0.00-0.10 [facility] Comment on above: Performed By: #### 5 7021-8 ####BHANU Treviño ([id number])[facility] ([facility])[address] [place] [address] Basophils/100 WBC (Bld) 0.7 % Normal 0.0-2.0 [facility] Comment on above: Performed By: #### 5 7021-8 ####BHANU Treviño ([id number])[facility] ([facility])[address] [place] [address] Eosinophils (Bld) [#/Vol] 0.31 x10*3/uL Normal 0.00-0.70 [facility] Comment on above: Performed By: #### 5 7021-8 ####BHANU Treviño ([id number])[facility] ([facility])[address] [place] [address] Eosinophils/100 WBC (Bld) 3.3 % Normal 0.0-6.0 [facility] Comment on above: Performed By: #### 5 7021-8 ####BHANU Treviño ([id number])[facility] ([facility])[address] [place] [address] Erythrocyte distribution width (RBC) [Ratio] 19.7 % High 11.5-14.5 [facility] Comment on above: Performed By: #### 5 7021-8 ####BHANU Treviño (25860)[facility] ([facility])[address] [place] [address] Hematocrit (Bld) [Volume fraction] 27.2 % Low 41.0-52.0 [facility] Comment on above: Performed By: #### 5 7021-8 ####BHANU Treviño ([id number])[facility] ([facility])[address] [place] [address] Hemoglobin (Bld) [Mass/Vol] 8.6 g/dL Low 13.5-17.5 [facility] Comment on above: Performed By: #### 5 7021-8 ####BHANU Treviño ([id number])[facility] ([facility])[address]32 [place] [address] Immature granulocytes (Bld) [#/Vol] 0.06 x10*3/uL Normal 0.00-0.70 [facility] Comment on above: Performed By: #### 5 7021-8 ####BHANU Treviño ([id number])[facility] ([facility])[address]19 [place] [address] Immature granulocytes/100 WBC (Bld) 0.6 % Normal 0.0-0.9 [facility] Comment on above: Result Comment: Christine ture Granulocyte Count (IG) includes promyelocytes, myelocytes and metamyelocytes but does not include bands. Percent differential counts (%) should be interpreted in the context of the absolute cell counts (cells/UL). Performed By: #### 5 7021-8 ####BHANU Treviño (94340)[facility] ([facility])[address] [place] [address] Lymphocytes (Bld) [#/Vol] 1.12 x10*3/uL Low 1.20-4.80 [facility] Comment on above: Performed By: #### 5 7021-8 ####BHANU Treviño (75090)[facility] ([facility])[address]67 [place] [address] Lymphocytes/100 WBC (Bld) 11.8 % Normal 13.0-44.0 [facility] Comment on above: Performed By: #### 5 7021-8 ####BHANU Treviño (93461)[facility] ([facility])[address] [place] [address] MCH (RBC) [Entitic mass] 24.5 pg Low 26.0-34.0 [facility] Comment on above: Performed By: #### 5 7021-8 ####BHANU Treviño ([id number])[facility] ([facility])[address]65 [place] [address] MCHC (RBC) [Mass/Vol] 31.6 g/dL Low 32.0-36.0 [facility] Comment on above: Performed By: #### 5 7021-8 ####BHANU Treviño ([id number])[facility] ([facility])[address]18 [place] [address] MCV (RBC) [Entitic vol] 78 fL Low 80-100 [facility] Comment on above: Performed By: #### 5 7021-8 ####BHANU Treviño ([id number])[facility] ([facility])[address] [place] [address] Monocytes (Bld) [#/Vol] 1.07 x10*3/uL High 0.10-1.00 [facility] Comment on above: Performed By: #### 5 7021-8 ####BHANU Treviño ([id number])[facility] ([facility])[address]14 [place] [address] Monocytes/100 WBC (Bld) 11.3 % Normal 2.0-10.0 [facility] Comment on above: Performed By: #### 5 7021-8 ####BHANU Treviño ([id number])[facility] ([facility])[address]22 [place] [address] Neutrophils (Bld) [#/Vol] 6.87 x10*3/uL Normal 1.20-7.70 [facility] Comment on above: Result Comment: Perc ent differential counts (%) should be interpreted in the context of the absolute cell counts (cells/uL). Performed By: #### 5 7021-8 ####BHANU Treviño ([id number])[facility] ([facility])[address]17 [place] [address] Neutrophils/100 WBC (Bld) 72.3 % Normal 40.0-80.0 [facility] Comment on above: Performed By: #### 5 7021-8 ####BHANU FLEMINGMOJOSEFA Treviño ([id number])[facility] ([facility])[address]12 [place] [address] Nucleated RBC/100 WBC (Bld) [Ratio] 0.0 /100 WBCs Normal 0.0-0.0 [facility] Comment on above: Performed By: #### 5 7021-8 ####BHANU Treviño ([id number])[facility] ([facility])[address]65 [place] [address] Platelets (Bld) [#/Vol] 722 x10*3/uL High 150-450 [facility] Comment on above: Performed By: #### 5 7021-8 ####BHANU GREGORY L ([id number])[facility] ([facility])[address]012 [place] [address] RBC (Bld) [#/Vol] 3.51 x10*6/uL Low 4.50-5.90 [facility] Comment on above: Performed By: #### 5 7021-8 ####BHANU Treviño ([id number])[facility] ([facility])[address]225 [place] [address] WBC (Bld) [#/Vol] 9.5 x10*3/uL Normal 4.4-11.3 [facility] Comment on above: Performed By: #### 5 7021-8 ####BHANU Treviño (72436)[facility] ([facility])[address]032 [place] [address] Basophils (Bld) [#/Vol] 0.07 x10*3/uL Normal 0.00-0.10 [facility] Comment on above: Performed By: #### 5 7021-8 ####BHANU GREGORY L (97553)[facility] ([facility])[address]37 [place] [address] Basophils/100 WBC (Bld) 0.8 % Normal 0.0-2.0 [facility] Comment on above: Performed By: #### 5 7021-8 ####BHANU GREGORY L ([id number])[facility] ([facility])[address]24 [place] [address] Eosinophils (Bld) [#/Vol] 0.09 x10*3/uL Normal 0.00-0.70 [facility] Comment on above: Performed By: #### 5 7021-8 ####BHANU Treviño (82359)[facility] ([facility])[address]574 [place] [address] Eosinophils/100 WBC (Bld) 1.1 % Normal 0.0-6.0 [facility] Comment on above: Performed By: #### 5 7021-8 ####BHANU Treviño (86843)[facility] ([facility])[address] [place] [address] Erythrocyte distribution width (RBC) [Ratio] 19.7 % High 11.5-14.5 [facility] Comment on above: Performed By: #### 5 7021-8 ####BHANU Treviño ([id number])[facility] ([facility])[address] [place] [address] Hematocrit (Bld) [Volume fraction] 27.4 % Low 41.0-52.0 [facility] Comment on above: Performed By: #### 5 7021-8 ####BHANU Treviño (60621)[facility] ([facility])[address] [place] [address] Hemoglobin (Bld) [Mass/Vol] 8.6 g/dL Low 13.5-17.5 [facility] Comment on above: Performed By: #### 5 7021-8 ####BHANU Treviño (21843)[facility] ([facility])[address]45 [place] [address] Immature granulocytes (Bld) [#/Vol] 0.04 x10*3/uL Normal 0.00-0.70 [facility] Comment on above: Performed By: #### 5 7021-8 ####BHANU Treviño (56034)[facility] ([facility])[address]402 [place] [address] Immature granulocytes/100 WBC (Bld) 0.5 % Normal 0.0-0.9 [facility] Comment on above: Result Comment: Christine ture Granulocyte Count (IG) includes promyelocytes, myelocytes and metamyelocytes but does not include bands. Percent differential counts (%) should be interpreted in the context of the absolute cell counts (cells/UL). Performed By: #### 5 7021-8 ####BHANU Treviño ([id number])[facility] ([facility])[address]62 [place] [address] Lymphocytes (Bld) [#/Vol] 1.33 x10*3/uL Normal 1.20-4.80 [facility] Comment on above: Performed By: #### 5 7021-8 ####BHANU Treviño ([id number])[facility] ([facility])[address]67 [place] [address] Lymphocytes/100 WBC (Bld) 15.8 % Normal 13.0-44.0 [facility] Comment on above: Performed By: #### 5 7021-8 ####BHANU Treviño ([id number])[facility] ([facility])[address]102 [place] [address] MCH (RBC) [Entitic mass] 24.1 pg Low 26.0-34.0 [facility] Comment on above: Performed By: #### 5 7021-8 ####BHANU Treviño (08144)[facility] ([facility])[address]77 [place] [address] MCHC (RBC) [Mass/Vol] 31.4 g/dL Low 32.0-36.0 [facility] Comment on above: Performed By: #### 5 7021-8 ####BHANU Treviño (44250)[facility] ([facility])[address]759 [place] [address] MCV (RBC) [Entitic vol] 77 fL Low 80-100 [facility] Comment on above: Performed By: #### 5 7021-8 ####BHANU Treviño (88266)[facility] ([facility])[address]049 [place] [address] Monocytes (Bld) [#/Vol] 1.12 x10*3/uL High 0.10-1.00 [facility] Comment on above: Performed By: #### 5 7021-8 ####BHANU GREGORY L (58620)[facility] ([facility])[address]302 [place] [address] Monocytes/100 WBC (Bld) 13.3 % Normal 2.0-10.0 [facility] Comment on above: Performed By: #### 5 7021-8 ####BHANU GREGORY L (89777)[facility] ([facility])[address]26 [place] [address] Neutrophils (Bld) [#/Vol] 5.79 x10*3/uL Normal 1.20-7.70 [facility] Comment on above: Result Comment: Perc ent differential counts (%) should be interpreted in the context of the absolute cell counts (cells/uL). Performed By: #### 5 7021-8 ####BHANU GREGORY L (05082)[facility] ([facility])[address]402 [place] [address] Neutrophils/100 WBC (Bld) 68.5 % Normal 40.0-80.0 [facility] Comment on above: Performed By: #### 5 7021-8 ####BHANU GREGORY L (45973)[facility] ([facility])[address]11 [place] [address] Nucleated RBC/100 WBC (Bld) [Ratio] 0.0 /100 WBCs Normal 0.0-0.0 [facility] Comment on above: Performed By: #### 5 7021-8 ####BHANU GREGORY L (27386)[facility] ([facility])[address]99 [place] [address] Platelets (Bld) [#/Vol] 737 x10*3/uL High 150-450 [facility] Comment on above: Performed By: #### 5 7021-8 ####BHANU FLEMINGMOJOSEFA L (91784)[facility] ([facility])[address]10 [place] [address] RBC (Bld) [#/Vol] 3.57 x10*6/uL Low 4.50-5.90 [facility] Comment on above: Performed By: #### 5 7021-8 ####BHANU Treviño ([id number])[facility] ([facility])[address]15 [place] [address] WBC (Bld) [#/Vol] 8.4 x10*3/uL Normal 4.4-11.3 [facility] Comment on above: Performed By: #### 5 7021-8 ####BHANU Treviño (26056)[facility] ([facility])[address]51 [place] [address] Comprehensive metabolic 2000 panelon 01-24-2025 Albumin BCP dye [Mass/Vol] 2.4 g/dL Low 3.4-5.0 [facility] Comment on above: Performed By: #### 2 4323-8 ####BHANU Treviño (49290)[facility] ([facility])[address]594 [place] [address] ALP [Catalytic activity/Vol] 70 U/L Normal 33-120 [facility] Comment on above: Performed By: #### 2 4323-8 ####BHANU Treviño ([id number])[facility] ([facility])[address]22 [place] [address] ALT With P-5'-P [Catalytic activity/Vol] 38 U/L Normal 10-52 [facility] Comment on above: Result Comment: Sydni ents treated with Sulfasalazine may generate falsely decreased results for ALT. Performed By: #### 2 4323-8 ####BHANU Treviño (50395)[facility] ([facility])[address]85 [place] [address] Anion gap [Moles/Vol] 13 mmol/L Normal 10-20 [facility] Comment on above: Performed By: #### 2 4323-8 ####BHANU Treviño (26031)[facility] ([facility])[address] [place] [address] AST With P-5'-P [Catalytic activity/Vol] 46 U/L High 9-39 [facility] Comment on above: Performed By: #### 2 4323-8 ####BHANU Treviño (31330)[facility] ([facility])[address] [place] [address] Bilirubin [Mass/Vol] 0.3 mg/dL Normal 0.0-1.2 [facility] Comment on above: Performed By: #### 2 4323-8 ####BHANU Treviño (43926)[facility] ([facility])[address]338 [place] [address] Calcium [Mass/Vol] 8.5 mg/dL Low 8.6-10.6 [facility] Comment on above: Performed By: #### 2 4323-8 ####BHANU Treviño (54872)[facility] ([facility])[address]170 [place] [address] Chloride [Moles/Vol] 101 mmol/L Normal 98-107 [facility] Comment on above: Performed By: #### 2 4323-8 ####BHANU Treviño ([id number])[facility] ([facility])[address]28 [place] [address] CO2 [Moles/Vol] 27 mmol/L Normal 21-32 [facility] Comment on above: Performed By: #### 2 4323-8 ####BHNAU Treviño (60243)[facility] ([facility])86631 [place] [address] Creatinine [Mass/Vol] 1.20 mg/dL Normal 0.50-1.30 [facility] Comment on above: Performed By: #### 2 4323-8 ####BHANU Treviño (63359)[facility] ([facility])53633 [place] [address] Glomerular filtration rate/1.73 sq M.predicted 73 mL/min/1.73m*2 Normal >60 [facility] Comment on above: Result Comment: Calc ulations of estimated GFR are performed using the 2020 CKD-EPI Study Refit equation without the race variable for the IDMS-Traceable creatinine methods.https://jasn.asnjournals.org/content/ /ASN.1108496650 Performed By: #### 2 4323-8 ####BHANU Treviño (74698)[facility] ([facility])[address]352 [place] [address] Glucose [Mass/Vol] 103 mg/dL High 74-99 [facility] Comment on above: Performed By: #### 2 4323-8 ####BHANU Treviño (76302)[facility] ([facility])39220 [place] [address] Potassium [Moles/Vol] 4.1 mmol/L Normal 3.5-5.3 [facility] Comment on above: Performed By: #### 2 4323-8 ####BHANU Treviño (20711)[facility] ([facility])14849 [place] [address] Protein [Mass/Vol] 6.5 g/dL Normal 6.4-8.2 [facility] Comment on above: Performed By: #### 2 4323-8 ####BHANU Treviño (21156)[facility] ([facility])31380 [place] [address] Sodium [Moles/Vol] 137 mmol/L Normal 136-145 [facility] Comment on above: Performed By: #### 2 4323-8 ####BHANU Treviño (86350)[facility] ([facility])34154 [place] [address] Urea nitrogen [Mass/Vol] 10 mg/dL Normal 6-23 [facility] Comment on above: Performed By: #### 2 4323-8 ####BHANU Treviño (73911)[facility] ([facility])40959 [place] [address] Magnesiumon 01-24-2025 Magnesium [Mass/Vol] 1.89 mg/dL Normal 1.60-2.40 [facility] Comment on above: Performed By: #### 1 9123-9 ####BHANU Treviño (01573)[facility] ([facility])[address] [place] [address] RBC shape Nom (Bld)on 2024 Hypochromia Ql (Bld) Mild Normal [facility] Comment on above: Performed By: #### 1 8225-3 ####BHANU Treviño ([id number])[facility] ([facility])[address] [place] [address] RBC morphology finding Nom (Bld) See Below [facility] Comment on above: Performed By: #### 1 8225-3 ####BHANU Treviño ([id number])[facility] ([facility])[address] [place] [address] Stomatocytes LM Ql (Bld) Few [facility] Comment on above: Performed By: #### 1 8225-3 ####BHANU Treviño ([id number])[facility] ([facility])[address] [place] [address]11 CBC W Auto Differential pane l (Bld)on 01-23-2025 Basophils (Bld) [#/Vol] 0.08 x10*3/uL Normal 0.00-0.10 [facility] Comment on above: Performed By: #### 5 7021-8 ####BHANU Treviño ([id number])[facility] ([facility])[address] [place] [address] Basophils/100 WBC (Bld) 0.9 % Normal 0.0-2.0 [facility] Comment on above: Performed By: #### 5 7021-8 ####BHANU Treviño ([id number])[facility] ([facility])[address]01 [place] [address] Eosinophils (Bld) [#/Vol] 0.57 x10*3/uL Normal 0.00-0.70 [facility] Comment on above: Performed By: #### 5 7021-8 ####BHANU Treviño ([id number])[facility] ([facility])[address]41 [place] [address] Eosinophils/100 WBC (Bld) 6.5 % Normal 0.0-6.0 [facility] Comment on above: Performed By: #### 5 7021-8 ####BHANU Treviño (76902)[facility] ([facility])[address] [place] [address] Erythrocyte distribution width (RBC) [Ratio] 19.8 % High 11.5-14.5 [facility] Comment on above: Performed By: #### 5 7021-8 ####BHANU Treviño ([id number])[facility] ([facility])[address] [place] [address] Hematocrit (Bld) [Volume fraction] 26.8 % Low 41.0-52.0 [facility] Comment on above: Performed By: #### 5 7021-8 ####BHANU Treviño (71403)[facility] ([facility])[address] [place] [address]01[address] Hemoglobin (Bld) [Mass/Vol] 8.5 g/dL Low 13.5-17.5 [facility] Comment on above: Performed By: #### 5 7021-8 ####BHANU Treviño ([id number])[facility] ([facility])[address] [place] [address] Immature granulocytes (Bld) [#/Vol] 0.05 x10*3/uL Normal 0.00-0.70 [facility] Comment on above: Performed By: #### 5 7021-8 ####BHANU Treviño ([id number])[facility] ([facility])[id number] [place] [address] 15267 Immature granulocytes/100 WBC (Bld) 0.6 % Normal 0.0-0.9 [facility] Comment on above: Result Comment: Christine ture Granulocyte Count (IG) includes promyelocytes, myelocytes and metamyelocytes but does not include bands. Percent differential counts (%) should be interpreted in the context of the absolute cell counts (cells/UL). Performed By: #### 5 7021-8 ####BHANU Treviño ([id number])[facility] ([facility])[id number] [place] [address] Lymphocytes (Bld) [#/Vol] 1.22 x10*3/uL Normal 1.20-4.80 [facility] Comment on above: Performed By: #### 5 7021-8 ####BHANU Treviño ([id number])[facility] ([facility])[id number] [place] [address] 44256 Lymphocytes/100 WBC (Bld) 14.0 % Normal 13.0-44.0 [facility] Comment on above: Performed By: #### 5 7021-8 ####BHANU Treviño ([id number])[facility] ([facility])[address] [place] [address] MCH (RBC) [Entitic mass] 24.6 pg Low 26.0-34.0 [facility] Comment on above: Performed By: #### 5 7021-8 ####BHANU Treviño ([id number])[facility] ([facility])[address] [place] [address] MCHC (RBC) [Mass/Vol] 31.7 g/dL Low 32.0-36.0 [facility] Comment on above: Performed By: #### 5 7021-8 ####BHANU Treviño ([id number])[facility] ([facility])[id number] [place] [address]161 MCV (RBC) [Entitic vol] 78 fL Low 80-100 [facility] Comment on above: Performed By: #### 5 7021-8 ####BHANU Treviño ([id number])[facility] ([facility])[address] [place] [address] Monocytes (Bld) [#/Vol] 0.90 x10*3/uL Normal 0.10-1.00 [facility] Comment on above: Performed By: #### 5 7021-8 ####BHANU Treviño ([id number])[facility] ([facility])[address] [place] [address] Monocytes/100 WBC (Bld) 10.3 % Normal 2.0-10.0 [facility] Comment on above: Performed By: #### 5 7021-8 ####BHANU Treviño ([id number])[facility] ([facility])[address] [place] [address] Neutrophils (Bld) [#/Vol] 5.91 x10*3/uL Normal 1.20-7.70 [facility] Comment on above: Result Comment: Perc ent differential counts (%) should be interpreted in the context of the absolute cell counts (cells/uL). Performed By: #### 5 7021-8 ####BHANU Treviño ([id number])[facility] ([facility])[address]59 [place] [address] Neutrophils/100 WBC (Bld) 67.7 % Normal 40.0-80.0 [facility] Comment on above: Performed By: #### 5 7021-8 ####BHANU Treviño ([id number])[facility] ([facility])[address] [place] [address] Nucleated RBC/100 WBC (Bld) [Ratio] 0.0 /100 WBCs Normal 0.0-0.0 [facility] Comment on above: Performed By: #### 5 7021-8 ####BHANU Treviño ([id number])[facility] ([facility])[address] [place] [address] Platelets (Bld) [#/Vol] 760 x10*3/uL High 150-450 [facility] Comment on above: Performed By: #### 5 7021-8 ####BHANU GREGORY L ([id number])[facility] ([facility])[address]68 [place] [address] RBC (Bld) [#/Vol] 3.46 x10*6/uL Low 4.50-5.90 [facility] Comment on above: Performed By: #### 5 7021-8 ####BHANU GREGORY L ([id number])[facility] ([facility])[address] [place] [address] WBC (Bld) [#/Vol] 8.7 x10*3/uL Normal 4.4-11.3 [facility] Comment on above: Performed By: #### 5 7021-8 ####BHANU GREGORY L ([id number])[facility] ([facility])[address]001 [place] [address] Basophils (Bld) [#/Vol] 0.07 x10*3/uL Normal 0.00-0.10 [facility] Comment on above: Performed By: #### 5 7021-8 ####BHANU GREGORY L ([id number])[facility] ([facility])[address]55 [place] [address] Basophils/100 WBC (Bld) 0.8 % Normal 0.0-2.0 [facility] Comment on above: Performed By: #### 5 7021-8 ####BHANU FLEMINGMOJOSEFA L ([id number])[facility] ([facility])[address]70 [place] [address] Eosinophils (Bld) [#/Vol] 0.36 x10*3/uL Normal 0.00-0.70 [facility] Comment on above: Performed By: #### 5 7021-8 ####BHANU GREGORY L ([id number])[facility] ([facility])[address] [place] [address] Eosinophils/100 WBC (Bld) 4.2 % Normal 0.0-6.0 [facility] Comment on above: Performed By: #### 5 7021-8 ####BHANU Treviño ([id number])[facility] ([facility])[address] [place] [address] Erythrocyte distribution width (RBC) [Ratio] 19.9 % High 11.5-14.5 [facility] Comment on above: Performed By: #### 5 7021-8 ####BHANU GREGORY L ([id number])[facility] ([facility])[id number] [place] [address] Hematocrit (Bld) [Volume fraction] 28.0 % Low 41.0-52.0 [facility] Comment on above: Performed By: #### 5 7021-8 ####BHANU GREGORY L ([id number])[facility] ([facility])[address] [place] [address] Hemoglobin (Bld) [Mass/Vol] 8.7 g/dL Low 13.5-17.5 [facility] Comment on above: Performed By: #### 5 7021-8 ####BHANU GREGORY L ([id number])[facility] ([facility])[address] [place] [address] Immature granulocytes (Bld) [#/Vol] 0.05 x10*3/uL Normal 0.00-0.70 [facility] Comment on above: Performed By: #### 5 7021-8 ####BHANU GREGORY L ([id number])[facility] ([facility])[id number] [place] [address] Immature granulocytes/100 WBC (Bld) 0.6 % Normal 0.0-0.9 [facility] Comment on above: Result Comment: Christine ture Granulocyte Count (IG) includes promyelocytes, myelocytes and metamyelocytes but does not include bands. Percent differential counts (%) should be interpreted in the context of the absolute cell counts (cells/UL). Performed By: #### 5 7021-8 ####BHANU FLEMINGMOTZALANNA L ([id number])[facility] ([facility])[id number] [place] [address] Lymphocytes (Bld) [#/Vol] 0.89 x10*3/uL Low 1.20-4.80 [facility] Comment on above: Performed By: #### 5 7021-8 ####BHANU Treviño ([id number])[facility] ([facility])[address]88 [place] [address] Lymphocytes/100 WBC (Bld) 10.5 % Normal 13.0-44.0 [facility] Comment on above: Performed By: #### 5 7021-8 ####BHANU Treviño ([id number])[facility] ([facility])[address]30 [place] [address] MCH (RBC) [Entitic mass] 24.4 pg Low 26.0-34.0 [facility] Comment on above: Performed By: #### 5 7021-8 ####BHANU Treviño ([id number])[facility] ([facility])34504 [place] [address] MCHC (RBC) [Mass/Vol] 31.1 g/dL Low 32.0-36.0 [facility] Comment on above: Performed By: #### 5 7021-8 ####BHANU Treviño ([id number])[facility] ([facility])[address]76 [place] [address] MCV (RBC) [Entitic vol] 78 fL Low 80-100 [facility] Comment on above: Performed By: #### 5 7021-8 ####BHANU Treviño ([id number])[facility] ([facility])[address] [place] [address] Monocytes (Bld) [#/Vol] 0.89 x10*3/uL Normal 0.10-1.00 [facility] Comment on above: Performed By: #### 5 7021-8 ####BHANU Treviño ([id number])[facility] ([facility])[address]55 [place] [address] Monocytes/100 WBC (Bld) 10.5 % Normal 2.0-10.0 [facility] Comment on above: Performed By: #### 5 7021-8 ####BHANU Treviño ([id number])[facility] ([facility])[address]131 [place] [address] Neutrophils (Bld) [#/Vol] 6.23 x10*3/uL Normal 1.20-7.70 [facility] Comment on above: Result Comment: Perc ent differential counts (%) should be interpreted in the context of the absolute cell counts (cells/uL). Performed By: #### 5 7021-8 ####BHANU Treviño ([id number])[facility] ([facility])[address]160 [place] [address] Neutrophils/100 WBC (Bld) 73.4 % Normal 40.0-80.0 [facility] Comment on above: Performed By: #### 5 7021-8 ####BHANU Treviño ([id number])[facility] ([facility])[address]94 [place] [address] Nucleated RBC/100 WBC (Bld) [Ratio] 0.0 /100 WBCs Normal 0.0-0.0 [facility] Comment on above: Performed By: #### 5 7021-8 ####BHANU GREGORY L ([id number])[facility] ([facility])[address]232 [place] [address] Platelets (Bld) [#/Vol] 749 x10*3/uL High 150-450 [facility] Comment on above: Performed By: #### 5 7021-8 ####BHANU GREGORY L ([id number])[facility] ([facility])[address]591 [place] [address] RBC (Bld) [#/Vol] 3.57 x10*6/uL Low 4.50-5.90 [facility] Comment on above: Performed By: #### 5 7021-8 ####BHANU FLEMINGMOTZALANNA L ([id number])[facility] ([facility])[address]183 [place] [address] WBC (Bld) [#/Vol] 8.5 x10*3/uL Normal 4.4-11.3 [facility] Comment on above: Performed By: #### 5 7021-8 ####BHANU GREGORY L ([id number])[facility] ([facility])[address]756 [place] [address] Comprehensive metabolic 2000 panelon 01-23-2025 Albumin BCP dye [Mass/Vol] 2.3 g/dL Low 3.4-5.0 [facility] Comment on above: Performed By: #### 2 4323-8 ####BHANU GREGORY L ([id number])[facility] ([facility])[address]323 [place] [address] ALP [Catalytic activity/Vol] 72 U/L Normal 33-120 [facility] Comment on above: Performed By: #### 2 4323-8 ####BHANU GREGORY L ([id number])[facility] ([facility])[address]19 [place] [address] ALT With P-5'-P [Catalytic activity/Vol] 38 U/L Normal 10-52 [facility] Comment on above: Result Comment: Sydni ents treated with Sulfasalazine may generate falsely decreased results for ALT. Performed By: #### 2 4323-8 ####BHANU GREGORY L ([id number])[facility] ([facility])[address]34 [place] [address] Anion gap [Moles/Vol] 14 mmol/L Normal 10-20 [facility] Comment on above: Performed By: #### 2 4323-8 ####BHANU MATOSER L ([id number])[facility] ([facility])[address]268 [place] [address] AST With P-5'-P [Catalytic activity/Vol] 56 U/L High 9-39 [facility] Comment on above: Performed By: #### 2 4323-8 ####BHANU FLEMINGMOMELANIER L ([id number])[facility] ([facility])[address] [place] [address] Bilirubin [Mass/Vol] 0.4 mg/dL Normal 0.0-1.2 [facility] Comment on above: Performed By: #### 2 4323-8 ####BHANU MATOSER L ([id number])[facility] ([facility])[address]90 [place] [address] Calcium [Mass/Vol] 8.0 mg/dL Low 8.6-10.6 [facility] Comment on above: Performed By: #### 2 4323-8 ####BHANU FLEMINGMOTZER L ([id number])[facility] ([facility])[address]36 [place] [address] Chloride [Moles/Vol] 102 mmol/L Normal 98-107 [facility] Comment on above: Performed By: #### 2 4323-8 ####BHANU FLEMINGMOTZER L (47550)[facility] ([facility])[address]68 [place] [address] CO2 [Moles/Vol] 27 mmol/L Normal 21-32 [facility] Comment on above: Performed By: #### 2 4323-8 ####BHANU FLEMINGMOTZER L (99730)[facility] ([facility])[address]792 [place] [address] Creatinine [Mass/Vol] 1.23 mg/dL Normal 0.50-1.30 [facility] Comment on above: Performed By: #### 2 4323-8 ####BHANU FLEMINGMOTZER L ([id number])[facility] ([facility])[address]453 [place] [address] Glomerular filtration rate/1.73 sq M.predicted 71 mL/min/1.73m*2 Normal >60 [facility] Comment on above: Result Comment: Calc ulations of estimated GFR are performed using the 2020 CKD-EPI Study Refit equation without the race variable for the IDMS-Traceable creatinine methods.https://jasn.asnjournals.org/content/ /ASN.4310374920 Performed By: #### 2 4323-8 ####BHANU Treviño ([id number])[facility] ([facility])[address]19 [place] [address] Glucose [Mass/Vol] 87 mg/dL Normal 74-99 [facility] Comment on above: Performed By: #### 2 4323-8 ####BHANU Treviño ([id number])[facility] ([facility])[address]255 [place] [address] Potassium [Moles/Vol] 4.7 mmol/L Normal 3.5-5.3 [facility] Comment on above: Performed By: #### 2 4323-8 ####BHANU Treviño ([id number])[facility] ([facility])[address] [place] [address] Protein [Mass/Vol] 5.8 g/dL Low 6.4-8.2 [facility] Comment on above: Performed By: #### 2 4323-8 ####BHANU Treviño ([id number])[facility] ([facility])[address]38 [place] [address] Sodium [Moles/Vol] 138 mmol/L Normal 136-145 [facility] Comment on above: Performed By: #### 2 4323-8 ####BHANU Treviño ([id number])[facility] ([facility])[address]98 [place] [address] Urea nitrogen [Mass/Vol] 8 mg/dL Normal 6-23 [facility] Comment on above: Performed By: #### 2 4323-8 ####BHANU Treviño ([id number])[facility] ([facility])[address]886 [place] [address] Magnesiumon 01-23-2025 Magnesium [Mass/Vol] 1.98 mg/dL Normal 1.60-2.40 [facility] Comment on above: Performed By: #### 1 9123-9 ####BHANU Treviño (75509)[facility] ([facility])[address]38 [place] [address] CBC W Auto Differential pane l (Bld)on 01-22-2025 Basophils (Bld) [#/Vol] 0.07 x10*3/uL Normal 0.00-0.10 [facility] Comment on above: Performed By: #### 5 7021-8 ####BHANU Treviño ([id number])[facility] ([facility])[address]391 [place] [address] Basophils/100 WBC (Bld) 0.8 % Normal 0.0-2.0 [facility] Comment on above: Performed By: #### 5 7021-8 ####BHANU Treviño ([id number])[facility] ([facility])[address]40 [place] [address] Eosinophils (Bld) [#/Vol] 0.11 x10*3/uL Normal 0.00-0.70 [facility] Comment on above: Performed By: #### 5 7021-8 ####BHANU Treviño ([id number])[facility] ([facility])[address]456 [place] [address] Eosinophils/100 WBC (Bld) 1.2 % Normal 0.0-6.0 [facility] Comment on above: Performed By: #### 5 7021-8 ####BHANU Treviño ([id number])[facility] ([facility])05805 [place] [address] Erythrocyte distribution width (RBC) [Ratio] 19.7 % High 11.5-14.5 [facility] Comment on above: Performed By: #### 5 7021-8 ####BHANU Treviño ([id number])[facility] ([facility])[address]808 [place] [address] Hematocrit (Bld) [Volume fraction] 27.5 % Low 41.0-52.0 [facility] Comment on above: Performed By: #### 5 7021-8 ####BHANU Treviño ([id number])[facility] ([facility])[address]862 [place] [address] Hemoglobin (Bld) [Mass/Vol] 8.5 g/dL Low 13.5-17.5 [facility] Comment on above: Performed By: #### 5 7021-8 ####BHANU Treviño ([id number])[facility] ([facility])[address]43 [place] [address] Immature granulocytes (Bld) [#/Vol] 0.03 x10*3/uL Normal 0.00-0.70 [facility] Comment on above: Performed By: #### 5 7021-8 ####BHANU Treviño ([id number])[facility] ([facility])09397 [place] [address] Immature granulocytes/100 WBC (Bld) 0.3 % Normal 0.0-0.9 [facility] Comment on above: Result Comment: Christine ture Granulocyte Count (IG) includes promyelocytes, myelocytes and metamyelocytes but does not include bands. Percent differential counts (%) should be interpreted in the context of the absolute cell counts (cells/UL). Performed By: #### 5 7021-8 ####BHANU Treviño ([id number])[facility] ([facility])[address]43 [place] [address] Lymphocytes (Bld) [#/Vol] 1.05 x10*3/uL Low 1.20-4.80 [facility] Comment on above: Performed By: #### 5 7021-8 ####BHANU Treviño ([id number])[facility] ([facility])94646 [place] [address] Lymphocytes/100 WBC (Bld) 11.7 % Normal 13.0-44.0 [facility] Comment on above: Performed By: #### 5 7021-8 ####BHANU Treviño ([id number])[facility] ([facility])[address]13 [place] [address] MCH (RBC) [Entitic mass] 23.8 pg Low 26.0-34.0 [facility] Comment on above: Performed By: #### 5 7021-8 ####BHANU Treviño ([id number])[facility] ([facility])[address]6575 [place] [address] MCHC (RBC) [Mass/Vol] 30.9 g/dL Low 32.0-36.0 [facility] Comment on above: Performed By: #### 5 7021-8 ####BHANU GREGORY L ([id number])[facility] ([facility])[address]11 [place] [address] MCV (RBC) [Entitic vol] 77 fL Low 80-100 [facility] Comment on above: Performed By: #### 5 7021-8 ####BHANU GREGORY L ([id number])[facility] ([facility])[address] [place] [address] Monocytes (Bld) [#/Vol] 1.01 x10*3/uL High 0.10-1.00 [facility] Comment on above: Performed By: #### 5 7021-8 ####BHANU GREGORY L ([id number])[facility] ([facility])[address]993 [place] [address] Monocytes/100 WBC (Bld) 11.3 % Normal 2.0-10.0 [facility] Comment on above: Performed By: #### 5 7021-8 ####BHANU GREGORY L ([id number])[facility] ([facility])[address] [place] [address] Neutrophils (Bld) [#/Vol] 6.68 x10*3/uL Normal 1.20-7.70 [facility] Comment on above: Result Comment: Perc ent differential counts (%) should be interpreted in the context of the absolute cell counts (cells/uL). Performed By: #### 5 7021-8 ####BHANU FLEMINGMOTZALANNA L ([id number])[facility] ([facility])[address]374 [place] [address] Neutrophils/100 WBC (Bld) 74.7 % Normal 40.0-80.0 [facility] Comment on above: Performed By: #### 5 7021-8 ####BHANU Treviño ([id number])[facility] ([facility])[address]053 [place] [address] Nucleated RBC/100 WBC (Bld) [Ratio] 0.0 /100 WBCs Normal 0.0-0.0 [facility] Comment on above: Performed By: #### 5 7021-8 ####BHANU Treviño ([id number])[facility] ([facility])40082 [place] [address] Platelets (Bld) [#/Vol] 769 x10*3/uL High 150-450 [facility] Comment on above: Performed By: #### 5 7021-8 ####BHANU Treviño (62608)[facility] ([facility])10489 [place] [address] RBC (Bld) [#/Vol] 3.57 x10*6/uL Low 4.50-5.90 [facility] Comment on above: Performed By: #### 5 7021-8 ####BHANU Treviño (85481)[facility] ([facility])[address] [place] [address] WBC (Bld) [#/Vol] 9.0 x10*3/uL Normal 4.4-11.3 [facility] Comment on above: Performed By: #### 5 7021-8 ####BHANU Treviño (85751)[facility] ([facility])69708 [place] [address] Basophils (Bld) [#/Vol] 0.06 x10*3/uL Normal 0.00-0.10 [facility] Comment on above: Performed By: #### 5 7021-8 ####BHANU Treviño ([id number])[facility] ([facility])[address]000 [place] [address] Basophils/100 WBC (Bld) 0.7 % Normal 0.0-2.0 [facility] Comment on above: Performed By: #### 5 7021-8 ####BHANU Treviño ([id number])[facility] ([facility])[id number] [place] [address] Eosinophils (Bld) [#/Vol] 0.51 x10*3/uL Normal 0.00-0.70 [facility] Comment on above: Performed By: #### 5 7021-8 ####BHANU Treviño ([id number])[facility] ([facility])[address] [place] [address] Eosinophils/100 WBC (Bld) 6.3 % Normal 0.0-6.0 [facility] Comment on above: Performed By: #### 5 7021-8 ####BHANU Treviño ([id number])[facility] ([facility])[address] [place] [address] Erythrocyte distribution width (RBC) [Ratio] 19.9 % High 11.5-14.5 [facility] Comment on above: Performed By: #### 5 7021-8 ####BHANU Treviño ([id number])[facility] ([facility])[address] [place] [address] Hematocrit (Bld) [Volume fraction] 26.6 % Low 41.0-52.0 [facility] Comment on above: Performed By: #### 5 7021-8 ####BHANU Treviño ([id number])[facility] ([facility])[id number] [place] [address] Hemoglobin (Bld) [Mass/Vol] 8.4 g/dL Low 13.5-17.5 [facility] Comment on above: Performed By: #### 5 7021-8 ####BHANU Treviño (49745)[facility] ([facility])[address] [place] [address] Immature granulocytes (Bld) [#/Vol] 0.05 x10*3/uL Normal 0.00-0.70 [facility] Comment on above: Performed By: #### 5 7021-8 ####BHANU Treviño ([id number])[facility] ([facility])[address]206 [place] [address] Immature granulocytes/100 WBC (Bld) 0.6 % Normal 0.0-0.9 [facility] Comment on above: Result Comment: Christine ture Granulocyte Count (IG) includes promyelocytes, myelocytes and metamyelocytes but does not include bands. Percent differential counts (%) should be interpreted in the context of the absolute cell counts (cells/UL). Performed By: #### 5 7021-8 ####BHANU Treviño ([id number])[facility] ([facility])[address]45 [place] [address] Lymphocytes (Bld) [#/Vol] 1.07 x10*3/uL Low 1.20-4.80 [facility] Comment on above: Performed By: #### 5 7021-8 ####BHANU Treviño ([id number])[facility] ([facility])23395 [place] [address] Lymphocytes/100 WBC (Bld) 13.2 % Normal 13.0-44.0 [facility] Comment on above: Performed By: #### 5 7021-8 ####BHANU Treviño ([id number])[facility] ([facility])[address]34 [place] [address] MCH (RBC) [Entitic mass] 24.3 pg Low 26.0-34.0 [facility] Comment on above: Performed By: #### 5 7021-8 ####BHANU Treviño ([id number])[facility] ([facility])[address]659 [place] [address] MCHC (RBC) [Mass/Vol] 31.6 g/dL Low 32.0-36.0 [facility] Comment on above: Performed By: #### 5 7021-8 ####BHANU Treviño ([id number])[facility] ([facility])[address] [place] [address] MCV (RBC) [Entitic vol] 77 fL Low 80-100 [facility] Comment on above: Performed By: #### 5 7021-8 ####BHANU Treviño ([id number])[facility] ([facility])[address] [place] [address] Monocytes (Bld) [#/Vol] 0.88 x10*3/uL Normal 0.10-1.00 [facility] Comment on above: Performed By: #### 5 7021-8 ####BHANU GREGORY L ([id number])[facility] ([facility])[address] [place] [address] Monocytes/100 WBC (Bld) 10.8 % Normal 2.0-10.0 [facility] Comment on above: Performed By: #### 5 7021-8 ####BHANU Treviño ([id number])[facility] ([facility])[address] [place] [address] Neutrophils (Bld) [#/Vol] 5.55 x10*3/uL Normal 1.20-7.70 [facility] Comment on above: Result Comment: Perc ent differential counts (%) should be interpreted in the context of the absolute cell counts (cells/uL). Performed By: #### 5 7021-8 ####BHANU Treviño ([id number])[facility] ([facility])[address] [place] [address] Neutrophils/100 WBC (Bld) 68.4 % Normal 40.0-80.0 [facility] Comment on above: Performed By: #### 5 7021-8 ####BHANU GREGORY L ([id number])[facility] ([facility])[address] [place] [address] Nucleated RBC/100 WBC (Bld) [Ratio] 0.0 /100 WBCs Normal 0.0-0.0 [facility] Comment on above: Performed By: #### 5 7021-8 ####BHANU FLEMINGMOTZALANNA L ([id number])[facility] ([facility])[address] [place] [address] Platelets (Bld) [#/Vol] 713 x10*3/uL High 150-450 [facility] Comment on above: Performed By: #### 5 7021-8 ####BHANU Treviño ([id number])[facility] ([facility])[id number] [place] [address] RBC (Bld) [#/Vol] 3.45 x10*6/uL Low 4.50-5.90 [facility] Comment on above: Performed By: #### 5 7021-8 ####BHANU Treviño ([id number])[facility] ([facility])[id number] [place] [address] WBC (Bld) [#/Vol] 8.1 x10*3/uL Normal 4.4-11.3 [facility] Comment on above: Performed By: #### 5 7021-8 ####BHANU Treviño ([id number])[facility] ([facility])[id number] [place] [address] Comprehensive metabolic 2000 panelon 01-22-2025 Albumin BCP dye [Mass/Vol] 2.2 g/dL Low 3.4-5.0 [facility] Comment on above: Performed By: #### 2 4323-8 ####BHANU Treviño ([id number])[facility] ([facility])[address]367 [place] [address] ALP [Catalytic activity/Vol] 68 U/L Normal 33-120 [facility] Comment on above: Performed By: #### 2 4323-8 ####BHANU GREGORY L ([id number])[facility] ([facility])[address]953 [place] [address] ALT With P-5'-P [Catalytic activity/Vol] 34 U/L Normal 10-52 [facility] Comment on above: Result Comment: Sydni ents treated with Sulfasalazine may generate falsely decreased results for ALT. Performed By: #### 2 4323-8 ####BHANU Treviño ([id number])[facility] ([facility])[address]320 [place] [address] Anion gap [Moles/Vol] 14 mmol/L Normal 10-20 [facility] Comment on above: Performed By: #### 2 4323-8 ####BHANU Treviño ([id number])[facility] ([facility])[address] [place] [address] AST With P-5'-P [Catalytic activity/Vol] 57 U/L High 9-39 [facility] Comment on above: Performed By: #### 2 4323-8 ####BHANU Treviño ([id number])[facility] ([facility])[address]98 [place] [address] Bilirubin [Mass/Vol] 0.4 mg/dL Normal 0.0-1.2 [facility] Comment on above: Performed By: #### 2 4323-8 ####BHANU Treviño ([id number])[facility] ([facility])[address]38 [place] [address] Calcium [Mass/Vol] 8.1 mg/dL Low 8.6-10.6 [facility] Comment on above: Performed By: #### 2 4323-8 ####BHANU Treviño (43584)[facility] ([facility])[address]69 [place] [address] Chloride [Moles/Vol] 103 mmol/L Normal 98-107 [facility] Comment on above: Performed By: #### 2 4323-8 ####BHANU Treviño ([id number])[facility] ([facility])[address]50 [place] [address] CO2 [Moles/Vol] 27 mmol/L Normal 21-32 [facility] Comment on above: Performed By: #### 2 4323-8 ####BHANU Treviño ([id number])[facility] ([facility])[address] [place] [address] Creatinine [Mass/Vol] 1.11 mg/dL Normal 0.50-1.30 [facility] Comment on above: Performed By: #### 2 4323-8 ####BHANU GREGORY L ([id number])[facility] ([facility])[address] [place] [address] Glomerular filtration rate/1.73 sq M.predicted 80 mL/min/1.73m*2 Normal >60 [facility] Comment on above: Result Comment: Calc ulations of estimated GFR are performed using the 2020 CKD-EPI Study Refit equation without the race variable for the IDMS-Traceable creatinine methods.https://jasn.asnjournals.org/content/early/ /ASN.7343083241 Performed By: #### 2 4323-8 ####BHANU GREGORY L ([id number])[facility] ([facility])[address]83 [place] [address] Glucose [Mass/Vol] 95 mg/dL Normal 74-99 [facility] Comment on above: Performed By: #### 2 4323-8 ####BHANU GREGORY L ([id number])[facility] ([facility])[address]67 [place] [address] Potassium [Moles/Vol] 4.5 mmol/L Normal 3.5-5.3 [facility] Comment on above: Performed By: #### 2 4323-8 ####BHANU FLEMINGMOTZALANNA L (06036)[facility] ([facility])[address]804 [place] [address] Protein [Mass/Vol] 5.4 g/dL Low 6.4-8.2 [facility] Comment on above: Performed By: #### 2 4323-8 ####BHANU GREGORY L ([id number])[facility] ([facility])67644 [place] [address] Sodium [Moles/Vol] 139 mmol/L Normal 136-145 [facility] Comment on above: Performed By: #### 2 4323-8 ####BHANU GREGORY L ([id number])[facility] ([facility])[address]25 [place] [address] Urea nitrogen [Mass/Vol] 7 mg/dL Normal 6-23 [facility] Comment on above: Performed By: #### 2 4323-8 ####BHANU Treviño ([id number])[facility] ([facility])[address]93 [place] [address] Creatine kinaseon 01-22-2025 CK [Catalytic activity/Vol] 21 U/L Normal 0-325 [facility] Comment on above: Performed By: #### 2 157-6 ####BHANU Treviño (22981)[facility] ([facility])[address]89 [place] [address] Magnesiumon 01-22-2025 Magnesium [Mass/Vol] 1.96 mg/dL Normal 1.60-2.40 [facility] Comment on above: Performed By: #### 1 9123-9 ####BHANU Treviño ([id number])[facility] ([facility])63147 [place] [address] Blood type and Indirect anti body screen panel (Bld)on 01-21-2025 ABO group Nom (Bld) A Normal [facility] Comment on above: Performed By: #### 3 4532-2 ####BHANU Treviño ([id number])[facility] ([facility])[address]129 [facility] [place] [address] Blood group antibody screen Ql Negative [facility] Comment on above: Performed By: #### 3 4532-2 ####BHANU Treviño ([id number])[facility] ([facility])[address]70 [facility] [place] [address] D Ag Ql (Bld) Positive [facility] Comment on above: Performed By: #### 3 4532-2 ####BHANU Treviño ([id number])[facility] ([facility])40762 [facility] [address] CBC W Auto Differential pane l (Bld)on 05-06-2025 Basophils (Bld) [#/Vol] 0.06 x10*3/uL Normal 0.00-0.10 [facility] Comment on above: Performed By: #### 5 7021-8 ####BHANU Treviño ([id number])[facility] ([facility])[address]92 [place] [address] Basophils/100 WBC (Bld) 0.7 % Normal 0.0-2.0 [facility] Comment on above: Performed By: #### 5 7021-8 ####BHANU Treviño ([id number])[facility] ([facility])[address]007 [place] [address] Eosinophils (Bld) [#/Vol] 0.24 x10*3/uL Normal 0.00-0.70 [facility] Comment on above: Performed By: #### 5 7021-8 ####BHANU Treviño ([id number])[facility] ([facility])[address]874 [place] [address] Eosinophils/100 WBC (Bld) 2.7 % Normal 0.0-6.0 [facility] Comment on above: Performed By: #### 5 7021-8 ####BHANU Treviño ([id number])[facility] ([facility])[address] [place] [address]20 Erythrocyte distribution width (RBC) [Ratio] 19.6 % High 11.5-14.5 [facility] Comment on above: Performed By: #### 5 7021-8 ####BHANU Treviño ([id number])[facility] ([facility])[address] [place] [address]142 Hematocrit (Bld) [Volume fraction] 25.9 % Low 41.0-52.0 [facility] Comment on above: Performed By: #### 5 7021-8 ####BHANU Treviño ([id number])[facility] ([facility])[address]100 [place] [address] Hemoglobin (Bld) [Mass/Vol] 8.3 g/dL Low 13.5-17.5 [facility] Comment on above: Performed By: #### 5 7021-8 ####BHANU Treviño (36045)[facility] ([facility])98990 [place] [address] Immature granulocytes (Bld) [#/Vol] 0.03 x10*3/uL Normal 0.00-0.70 [facility] Comment on above: Performed By: #### 5 7021-8 ####BHANU GREGORY L ([id number])[facility] ([facility])[address] [place] [address] Immature granulocytes/100 WBC (Bld) 0.3 % Normal 0.0-0.9 [facility] Comment on above: Result Comment: Christine ture Granulocyte Count (IG) includes promyelocytes, myelocytes and metamyelocytes but does not include bands. Percent differential counts (%) should be interpreted in the context of the absolute cell counts (cells/UL). Performed By: #### 5 7021-8 ####BHANU Treviño ([id number])[facility] ([facility])[address] [place] [address]19[address] Lymphocytes (Bld) [#/Vol] 1.18 x10*3/uL Low 1.20-4.80 [facility] Comment on above: Performed By: #### 5 7021-8 ####BHANU Treviño ([id number])[facility] ([facility])35913 [place] [address] Lymphocytes/100 WBC (Bld) 13.5 % Normal 13.0-44.0 [facility] Comment on above: Performed By: #### 5 7021-8 ####BHANU Treviño ([id number])[facility] ([facility])[address] [place] [address] MCH (RBC) [Entitic mass] 24.7 pg Low 26.0-34.0 [facility] Comment on above: Performed By: #### 5 7021-8 ####BHANU Treviño ([id number])[facility] ([facility])04504 [place] [address] MCHC (RBC) [Mass/Vol] 32.0 g/dL Normal 32.0-36.0 [facility] Comment on above: Performed By: #### 5 7021-8 ####BHANU Treviño ([id number])[facility] ([facility])63130 [place] [address] MCV (RBC) [Entitic vol] 77 fL Low 80-100 [facility] Comment on above: Performed By: #### 5 7021-8 ####BHANU Treviño ([id number])[facility] ([facility])[address] [place] [address]79[address] Monocytes (Bld) [#/Vol] 1.01 x10*3/uL High 0.10-1.00 [facility] Comment on above: Performed By: #### 5 7021-8 ####BHANU Treviño ([id number])[facility] ([facility])[address] [place] [address] Monocytes/100 WBC (Bld) 11.5 % Normal 2.0-10.0 [facility] Comment on above: Performed By: #### 5 7021-8 ####BHANU Treviño ([id number])[facility] ([facility])[address] [place] [address]69[address] Neutrophils (Bld) [#/Vol] 6.25 x10*3/uL Normal 1.20-7.70 [facility] Comment on above: Result Comment: Perc ent differential counts (%) should be interpreted in the context of the absolute cell counts (cells/uL). Performed By: #### 5 7021-8 ####BHANU Treviño ([id number])[facility] ([facility])[address]326 [place] [address] Neutrophils/100 WBC (Bld) 71.3 % Normal 40.0-80.0 [facility] Comment on above: Performed By: #### 5 7021-8 ####BHANU Treviño ([id number])[facility] ([facility])79886 [place] [address] Nucleated RBC/100 WBC (Bld) [Ratio] 0.0 /100 WBCs Normal 0.0-0.0 [facility] Comment on above: Performed By: #### 5 7021-8 ####BHANU Treviño ([id number])[facility] ([facility])13018 [place] [address] Platelets (Bld) [#/Vol] 730 x10*3/uL High 150-450 [facility] Comment on above: Performed By: #### 5 7021-8 ####BHANU Treviño (10154)[facility] ([facility])60405 [place] [address] RBC (Bld) [#/Vol] 3.36 x10*6/uL Low 4.50-5.90 [facility] Comment on above: Performed By: #### 5 7021-8 ####BHANU Treviño ([id number])[facility] ([facility])67366 [place] [address] WBC (Bld) [#/Vol] 8.8 x10*3/uL Normal 4.4-11.3 [facility] Comment on above: Performed By: #### 5 7021-8 ####BHANU Treviño ([id number])[facility] ([facility])46858 [place] [address] Basophils (Bld) [#/Vol] 0.07 x10*3/uL Normal 0.00-0.10 [facility] Comment on above: Performed By: #### 5 7021-8 ####BHANU Treviño ([id number])[facility] ([facility])08196 [place] [address] Basophils/100 WBC (Bld) 0.8 % Normal 0.0-2.0 [facility] Comment on above: Performed By: #### 5 7021-8 ####BHANU Treviño ([id number])[facility] ([facility])78690 [place] [address] Eosinophils (Bld) [#/Vol] 0.16 x10*3/uL Normal 0.00-0.70 [facility] Comment on above: Performed By: #### 5 7021-8 ####BHANU Treviño ([id number])[facility] ([facility])[address] [place] [address]49[address] Eosinophils/100 WBC (Bld) 1.7 % Normal 0.0-6.0 [facility] Comment on above: Performed By: #### 5 7021-8 ####BHANU Treviño (40604)[facility] ([facility])[address] [place] [address]51 Erythrocyte distribution width (RBC) [Ratio] 19.5 % High 11.5-14.5 [facility] Comment on above: Performed By: #### 5 7021-8 ####BHANU Treviño ([id number])[facility] ([facility])[address] [place] [address] Hematocrit (Bld) [Volume fraction] 25.5 % Low 41.0-52.0 [facility] Comment on above: Performed By: #### 5 7021-8 ####BHANU Treviño ([id number])[facility] ([facility])[address] [place] [address]303 Hemoglobin (Bld) [Mass/Vol] 8.3 g/dL Low 13.5-17.5 [facility] Comment on above: Performed By: #### 5 7021-8 ####BHANU Treviño (69044)[facility] ([facility])[address] [place] [address] 21931 Immature granulocytes (Bld) [#/Vol] 0.05 x10*3/uL Normal 0.00-0.70 [facility] Comment on above: Performed By: #### 5 7021-8 ####BHANU Treviño ([id number])[facility] ([facility])[address] [place] [address] 09648 Immature granulocytes/100 WBC (Bld) 0.5 % Normal 0.0-0.9 [facility] Comment on above: Result Comment: Christine ture Granulocyte Count (IG) includes promyelocytes, myelocytes and metamyelocytes but does not include bands. Percent differential counts (%) should be interpreted in the context of the absolute cell counts (cells/UL). Performed By: #### 5 7021-8 ####BHANU Treviño ([id number])[facility] ([facility])38136 [place] [address] Lymphocytes (Bld) [#/Vol] 0.99 x10*3/uL Low 1.20-4.80 [facility] Comment on above: Performed By: #### 5 7021-8 ####BHANU Treviño ([id number])[facility] ([facility])20521 [place] [address] Lymphocytes/100 WBC (Bld) 10.8 % Normal 13.0-44.0 [facility] Comment on above: Performed By: #### 5 7021-8 ####BHANU Treviño (97913)[facility] ([facility])80124 [place] [address] MCH (RBC) [Entitic mass] 25.0 pg Low 26.0-34.0 [facility] Comment on above: Performed By: #### 5 7021-8 ####BHANU Treviño ([id number])[facility] ([facility])40916 [place] [address] MCHC (RBC) [Mass/Vol] 32.5 g/dL Normal 32.0-36.0 [facility] Comment on above: Performed By: #### 5 7021-8 ####BHANU Treviño (84412)[facility] ([facility])12903 [place] [address] MCV (RBC) [Entitic vol] 77 fL Low 80-100 [facility] Comment on above: Performed By: #### 5 7021-8 ####BHANU Treviño ([id number])[facility] ([facility])26495 [place] [address] Monocytes (Bld) [#/Vol] 1.02 x10*3/uL High 0.10-1.00 [facility] Comment on above: Performed By: #### 5 7021-8 ####BHANU Treviño (07362)[facility] ([facility])31996 [place] [address] Monocytes/100 WBC (Bld) 11.1 % Normal 2.0-10.0 [facility] Comment on above: Performed By: #### 5 7021-8 ####BHANU Treviño ([id number])[facility] ([facility])11443 [place] [address] Neutrophils (Bld) [#/Vol] 6.90 x10*3/uL Normal 1.20-7.70 [facility] Comment on above: Result Comment: Perc ent differential counts (%) should be interpreted in the context of the absolute cell counts (cells/uL). Performed By: #### 5 7021-8 ####BHANU Treviño (65809)[facility] ([facility])30891 [place] [address] Neutrophils/100 WBC (Bld) 75.1 % Normal 40.0-80.0 [facility] Comment on above: Performed By: #### 5 7021-8 ####BHANU Treviño ([id number])[facility] ([facility])42015 [place] [address] Nucleated RBC/100 WBC (Bld) [Ratio] 0.0 /100 WBCs Normal 0.0-0.0 [facility] Comment on above: Performed By: #### 5 7021-8 ####BHANU Treviño (62912)[facility] ([facility])59840 [place] [address] Platelets (Bld) [#/Vol] 690 x10*3/uL High 150-450 [facility] Comment on above: Performed By: #### 5 7021-8 ####BHANU Treviño (94787)[facility] ([facility])24422 [place] [address] RBC (Bld) [#/Vol] 3.32 x10*6/uL Low 4.50-5.90 [facility] Comment on above: Performed By: #### 5 7021-8 ####BHANU Treviño ([id number])[facility] ([facility])95138 [place] [address] WBC (Bld) [#/Vol] 9.2 x10*3/uL Normal 4.4-11.3 [facility] Comment on above: Performed By: #### 5 7021-8 ####BHANU Treviño ([id number])[facility] ([facility])[address]46 [place] [address] Comprehensive metabolic 2000 panelon 01-21-2025 Albumin BCP dye [Mass/Vol] 2.2 g/dL Low 3.4-5.0 [facility] Comment on above: Performed By: #### 2 4323-8 ####BHANU Treviño (24070)[facility] ([facility])21132 [place] [address] ALP [Catalytic activity/Vol] 62 U/L Normal 33-120 [facility] Comment on above: Performed By: #### 2 4323-8 ####BHANU GREGORY L (13479)[facility] ([facility])92416 [place] [address] ALT With P-5'-P [Catalytic activity/Vol] 24 U/L Normal 10-52 [facility] Comment on above: Result Comment: Sydni ents treated with Sulfasalazine may generate falsely decreased results for ALT. Performed By: #### 2 4323-8 ####BHANU Treviño (22165)[facility] ([facility])[address]015 [place] [address] Anion gap [Moles/Vol] 12 mmol/L Normal 10-20 [facility] Comment on above: Performed By: #### 2 4323-8 ####BHANU Treviño (62568)[facility] ([facility])59369 [place] [address] AST With P-5'-P [Catalytic activity/Vol] 40 U/L High 9-39 [facility] Comment on above: Performed By: #### 2 4323-8 ####BHANU Treviño (96493)[facility] ([facility])86358 [place] [address] Bilirubin [Mass/Vol] 0.4 mg/dL Normal 0.0-1.2 [facility] Comment on above: Performed By: #### 2 4323-8 ####BHANU Treviño (69642)[facility] ([facility])40588 [place] [address] Calcium [Mass/Vol] 8.0 mg/dL Low 8.6-10.6 [facility] Comment on above: Performed By: #### 2 432-8 ####BHANU Treviño (69797)[facility] ([facility])[address]777 [place] [address] Chloride [Moles/Vol] 104 mmol/L Normal 98-107 [facility] Comment on above: Performed By: #### 2 4323-8 ####BHANU Treviño (22963)[facility] ([facility])87094 [place] [address] CO2 [Moles/Vol] 26 mmol/L Normal 21-32 [facility] Comment on above: Performed By: #### 2 4323-8 ####BHANU Treviño (54049)[facility] ([facility])[address]38 [place] [address] Creatinine [Mass/Vol] 1.09 mg/dL Normal 0.50-1.30 [facility] Comment on above: Performed By: #### 2 4323-8 ####BHANU Treviño ([id number])[facility] ([facility])[address]140 [place] [address] Glomerular filtration rate/1.73 sq M.predicted 82 mL/min/1.73m*2 Normal >60 [facility] Comment on above: Result Comment: Calc ulations of estimated GFR are performed using the 2020 CKD-EPI Study Refit equation without the race variable for the IDMS-Traceable creatinine methods.https://jasn.asnjournals.org/content/early /ASN.8269627200 Performed By: #### 2 4323-8 ####BHANU Treviño ([id number])[facility] ([facility])[address]99 [place] [address] Glucose [Mass/Vol] 103 mg/dL High 74-99 [facility] Comment on above: Performed By: #### 2 4323-8 ####BHANU GREGORY L (53634)[facility] ([facility])[address]94 [place] [address] Potassium [Moles/Vol] 4.0 mmol/L Normal 3.5-5.3 [facility] Comment on above: Performed By: #### 2 4323-8 ####BHANU GREGORY L (36201)[facility] ([facility])[address]38 [place] [address] Protein [Mass/Vol] 6.1 g/dL Low 6.4-8.2 [facility] Comment on above: Performed By: #### 2 4323-8 ####BHANU GREGORY L (53560)[facility] ([facility])[address]338 [place] [address] Sodium [Moles/Vol] 138 mmol/L Normal 136-145 [facility] Comment on above: Performed By: #### 2 4323-8 ####BHANU GREGORY L (81504)[facility] ([facility])[address]385 [place] [address] Urea nitrogen [Mass/Vol] 7 mg/dL Normal 6-23 [facility] Comment on above: Performed By: #### 2 4323-8 ####BHANU Treviño ([id number])[facility] ([facility])[address] [place] [address] Magnesiumon 01-21-2025 Magnesium [Mass/Vol] 1.92 mg/dL Normal 1.60-2.40 [facility] Comment on above: Performed By: #### 1 9123-9 ####BHANU Treviño ([id number])[facility] ([facility])[address] [place] [address] CBC W Auto Differential pane l (Bld)on 01-20-2025 Basophils (Bld) [#/Vol] 0.06 x10*3/uL Normal 0.00-0.10 [facility] Comment on above: Performed By: #### 5 7021-8 ####BHANU Treviño ([id number])[facility] ([facility])[address] [place] [address] Basophils/100 WBC (Bld) 0.6 % Normal 0.0-2.0 [facility] Comment on above: Performed By: #### 5 7021-8 ####BHANU Treviño ([id number])[facility] ([facility])[id number] [place] [address] Eosinophils (Bld) [#/Vol] 0.44 x10*3/uL Normal 0.00-0.70 [facility] Comment on above: Performed By: #### 5 7021-8 ####BHANU Treviño ([id number])[facility] ([facility])[address] [place] [address] Eosinophils/100 WBC (Bld) 4.2 % Normal 0.0-6.0 [facility] Comment on above: Performed By: #### 5 7021-8 ####BHANU Treviño ([id number])[facility] ([facility])[address] [place] [address] Erythrocyte distribution width (RBC) [Ratio] 19.6 % High 11.5-14.5 [facility] Comment on above: Performed By: #### 5 7021-8 ####BHANU Treviño ([id number])[facility] ([facility])[address] [place] [address] Hematocrit (Bld) [Volume fraction] 25.2 % Low 41.0-52.0 [facility] Comment on above: Performed By: #### 5 7021-8 ####BHANU Treviño ([id number])[facility] ([facility])[address] [place] [address] Hemoglobin (Bld) [Mass/Vol] 8.1 g/dL Low 13.5-17.5 [facility] Comment on above: Performed By: #### 5 7021-8 ####BHANU Treviño ([id number])[facility] HOSPITAL)[address] [place] [address] Immature granulocytes (Bld) [#/Vol] 0.05 x10*3/uL Normal 0.00-0.70 [facility] Comment on above: Performed By: #### 5 7021-8 ####BHANU Treviño ([id number])[facility] ([facility])[address]150 [place] [address] Immature granulocytes/100 WBC (Bld) 0.5 % Normal 0.0-0.9 [facility] Comment on above: Result Comment: Christine ture Granulocyte Count (IG) includes promyelocytes, myelocytes and metamyelocytes but does not include bands. Percent differential counts (%) should be interpreted in the context of the absolute cell counts (cells/UL). Performed By: #### 5 7021-8 ####BHANU Treviño ([id number])[facility] ([facility])[address]29 [place] [address] Lymphocytes (Bld) [#/Vol] 1.24 x10*3/uL Normal 1.20-4.80 [facility] Comment on above: Performed By: #### 5 7021-8 ####BHANU Treviño ([id number])[facility] ([facility])[address]34 [place] [address] Lymphocytes/100 WBC (Bld) 11.8 % Normal 13.0-44.0 [facility] Comment on above: Performed By: #### 5 7021-8 ####BHANU Treviño ([id number])[facility] ([facility])[address]656 [place] [address] MCH (RBC) [Entitic mass] 24.7 pg Low 26.0-34.0 [facility] Comment on above: Performed By: #### 5 7021-8 ####BHANU Treviño ([id number])[facility] ([facility])[id number] [place] [address] MCHC (RBC) [Mass/Vol] 32.1 g/dL Normal 32.0-36.0 [facility] Comment on above: Performed By: #### 5 7021-8 ####BHANU Treviño ([id number])[facility] ([facility])[address]198 [place] [address] MCV (RBC) [Entitic vol] 77 fL Low 80-100 [facility] Comment on above: Performed By: #### 5 7021-8 ####BHANU Treviño ([id number])[facility] ([facility])[address] [place] [address] Monocytes (Bld) [#/Vol] 1.16 x10*3/uL High 0.10-1.00 [facility] Comment on above: Performed By: #### 5 7021-8 ####BHANU Treviño ([id number])[facility] ([facility])[address]287 [place] [address] Monocytes/100 WBC (Bld) 11.0 % Normal 2.0-10.0 [facility] Comment on above: Performed By: #### 5 7021-8 ####BHANU Treviño ([id number])[facility] ([facility])[address] [place] [address] Neutrophils (Bld) [#/Vol] 7.58 x10*3/uL Normal 1.20-7.70 [facility] Comment on above: Result Comment: Perc ent differential counts (%) should be interpreted in the context of the absolute cell counts (cells/uL). Performed By: #### 5 7021-8 ####BHANU Treviño ([id number])[facility] ([facility])[address]17 [place] [address] Neutrophils/100 WBC (Bld) 71.9 % Normal 40.0-80.0 [facility] Comment on above: Performed By: #### 5 7021-8 ####BHANU Treviño ([id number])[facility] ([facility])[address]390 [place] [address] Nucleated RBC/100 WBC (Bld) [Ratio] 0.0 /100 WBCs Normal 0.0-0.0 [facility] Comment on above: Performed By: #### 5 7021-8 ####BHANU GREGORY L ([id number])[facility] ([facility])30263 [place] [address] Platelets (Bld) [#/Vol] 731 x10*3/uL High 150-450 [facility] Comment on above: Performed By: #### 5 7021-8 ####BHANU Treviño ([id number])[facility] ([facility])[address]60 [place] [address] RBC (Bld) [#/Vol] 3.28 x10*6/uL Low 4.50-5.90 [facility] Comment on above: Performed By: #### 5 7021-8 ####BHANU GREGORY L ([id number])[facility] ([facility])[address]134 [place] [address] WBC (Bld) [#/Vol] 10.5 x10*3/uL Normal 4.4-11.3 [facility] Comment on above: Performed By: #### 5 7021-8 ####BHANU Treviño ([id number])[facility] ([facility])[address]37 [place] [address] Basophils (Bld) [#/Vol] 0.06 x10*3/uL Normal 0.00-0.10 [facility] Comment on above: Performed By: #### 5 7021-8 ####BHANU Treviño ([id number])[facility] ([facility])[address]13 [place] [address] Basophils/100 WBC (Bld) 0.6 % Normal 0.0-2.0 [facility] Comment on above: Performed By: #### 5 7021-8 ####BHANU Treviño ([id number])[facility] ([facility])35952 [place] [address] Eosinophils (Bld) [#/Vol] 0.50 x10*3/uL Normal 0.00-0.70 [facility] Comment on above: Performed By: #### 5 7021-8 ####BHANU Treviño ([id number])[facility] ([facility])[address]493 [place] [address] Eosinophils/100 WBC (Bld) 5.2 % Normal 0.0-6.0 [facility] Comment on above: Performed By: #### 5 7021-8 ####BHANU Treviño ([id number])[facility] ([facility])[address]4743 [place] [address] Erythrocyte distribution width (RBC) [Ratio] 19.6 % High 11.5-14.5 [facility] Comment on above: Performed By: #### 5 7021-8 ####BHANU Treviño ([id number])[facility] ([facility])[address]26 [place] [address] Hematocrit (Bld) [Volume fraction] 25.2 % Low 41.0-52.0 [facility] Comment on above: Performed By: #### 5 7021-8 ####BHANU Treviño ([id number])[facility] ([facility])[address]888 [place] [address] Hemoglobin (Bld) [Mass/Vol] 7.9 g/dL Low 13.5-17.5 [facility] Comment on above: Performed By: #### 5 7021-8 ####BHANU Treviño ([id number])[facility] ([facility])[address]343 [place] [address] Immature granulocytes (Bld) [#/Vol] 0.08 x10*3/uL Normal 0.00-0.70 [facility] Comment on above: Performed By: #### 5 7021-8 ####BHANU Treviño ([id number])[facility] ([facility])[address]86 [place] [address] Immature granulocytes/100 WBC (Bld) 0.8 % Normal 0.0-0.9 [facility] Comment on above: Result Comment: Christine ture Granulocyte Count (IG) includes promyelocytes, myelocytes and metamyelocytes but does not include bands. Percent differential counts (%) should be interpreted in the context of the absolute cell counts (cells/UL). Performed By: #### 5 7021-8 ####BHANU Treviño ([id number])[facility] ([facility])[address]153 [place] [address] Lymphocytes (Bld) [#/Vol] 1.26 x10*3/uL Normal 1.20-4.80 [facility] Comment on above: Performed By: #### 5 7021-8 ####BHANU Treviño ([id number])[facility] ([facility])[address]62 [place] [address] Lymphocytes/100 WBC (Bld) 13.1 % Normal 13.0-44.0 [facility] Comment on above: Performed By: #### 5 7021-8 ####BHANU Treviño ([id number])[facility] ([facility])35695 [place] [address] MCH (RBC) [Entitic mass] 24.7 pg Low 26.0-34.0 [facility] Comment on above: Performed By: #### 5 7021-8 ####BHANU Treviño ([id number])[facility] ([facility])[address]61 [place] [address] MCHC (RBC) [Mass/Vol] 31.3 g/dL Low 32.0-36.0 [facility] Comment on above: Performed By: #### 5 7021-8 ####BHANU GREGORY L ([id number])[facility] ([facility])[address]64 [place] [address] MCV (RBC) [Entitic vol] 79 fL Low 80-100 [facility] Comment on above: Performed By: #### 5 7021-8 ####BHANU GREGORY L ([id number])[facility] ([facility])[address] [place] [address] Monocytes (Bld) [#/Vol] 1.08 x10*3/uL High 0.10-1.00 [facility] Comment on above: Performed By: #### 5 7021-8 ####BHANU GREGORY L ([id number])[facility] ([facility])[address]52 [place] [address] Monocytes/100 WBC (Bld) 11.3 % Normal 2.0-10.0 [facility] Comment on above: Performed By: #### 5 7021-8 ####BHANU GREGORY L ([id number])[facility] ([facility])[address] [place] [address] Neutrophils (Bld) [#/Vol] 6.62 x10*3/uL Normal 1.20-7.70 [facility] Comment on above: Result Comment: Perc ent differential counts (%) should be interpreted in the context of the absolute cell counts (cells/uL). Performed By: #### 5 7021-8 ####BHANU FLEMINGMOTZALANNA L ([id number])[facility] ([facility])[address]31 [place] [address] Neutrophils/100 WBC (Bld) 69.0 % Normal 40.0-80.0 [facility] Comment on above: Performed By: #### 5 7021-8 ####BHANU Treviño ([id number])[facility] ([facility])[address]76 [place] [address] Nucleated RBC/100 WBC (Bld) [Ratio] 0.0 /100 WBCs Normal 0.0-0.0 [facility] Comment on above: Performed By: #### 5 7021-8 ####BHANU Treviño ([id number])[facility] ([facility])[address] [place] [address] Platelets (Bld) [#/Vol] 689 x10*3/uL High 150-450 [facility] Comment on above: Performed By: #### 5 7021-8 ####BHANU Treviño ([id number])[facility] ([facility])[address] [place] [address] RBC (Bld) [#/Vol] 3.20 x10*6/uL Low 4.50-5.90 [facility] Comment on above: Performed By: #### 5 7021-8 ####BHANU Treviño ([id number])[facility] ([facility])[address] [place] [address] WBC (Bld) [#/Vol] 9.6 x10*3/uL Normal 4.4-11.3 [facility] Comment on above: Performed By: #### 5 7021-8 ####BHANU Treviño ([id number])[facility] ([facility])[address] [place] [address]20 Comprehensive metabolic 2000 panelon 01-20-2025 Albumin BCP dye [Mass/Vol] 2.2 g/dL Low 3.4-5.0 [facility] Comment on above: Performed By: #### 2 4323-8 ####BHANU Treviño ([id number])[facility] ([facility])[address]345 [place] [address] ALP [Catalytic activity/Vol] 62 U/L Normal 33-120 [facility] Comment on above: Performed By: #### 2 4323-8 ####BHANU Treviño ([id number])[facility] ([facility])[address]42 [place] [address] ALT With P-5'-P [Catalytic activity/Vol] 18 U/L Normal 10-52 [facility] Comment on above: Result Comment: Sydni ents treated with Sulfasalazine may generate falsely decreased results for ALT. Performed By: #### 2 4323-8 ####BHANU Treviño ([id number])[facility] ([facility])[address]594 [place] [address] Anion gap [Moles/Vol] 11 mmol/L Normal 10-20 [facility] Comment on above: Performed By: #### 2 4323-8 ####BHANU Treviño ([id number])[facility] ([facility])60464 [place] [address] AST With P-5'-P [Catalytic activity/Vol] 30 U/L Normal 9-39 [facility] Comment on above: Performed By: #### 2 4323-8 ####BHANU Treviño ([id number])[facility] ([facility])[address]89 [place] [address] Bilirubin [Mass/Vol] 0.3 mg/dL Normal 0.0-1.2 [facility] Comment on above: Performed By: #### 2 4323-8 ####BHANU Treviño ([id number])[facility] ([facility])14266 [place] [address] Calcium [Mass/Vol] 7.9 mg/dL Low 8.6-10.6 [facility] Comment on above: Performed By: #### 2 4323-8 ####BHANU Treviño ([id number])[facility] ([facility])18907 [place] [address] Chloride [Moles/Vol] 106 mmol/L Normal 98-107 [facility] Comment on above: Performed By: #### 2 4323-8 ####BHANU Treviño ([id number])[facility] ([facility])[address] [place] [address] CO2 [Moles/Vol] 26 mmol/L Normal 21-32 [facility] Comment on above: Performed By: #### 2 4323-8 ####BHANU GREGORY L ([id number])[facility] ([facility])[address] [place] [address] Creatinine [Mass/Vol] 1.08 mg/dL Normal 0.50-1.30 [facility] Comment on above: Performed By: #### 2 4323-8 ####BHANU Treviño ([id number])[facility] ([facility])[address]81 [place] [address] Glomerular filtration rate/1.73 sq M.predicted 83 mL/min/1.73m*2 Normal >60 [facility] Comment on above: Result Comment: Calc ulations of estimated GFR are performed using the 2020 CKD-EPI Study Refit equation without the race variable for the IDMS-Traceable creatinine methods.https://jasn.asnjournals.org/content/ /ASN.7821353864 Performed By: #### 2 4323-8 ####BHANU Treviño ([id number])[facility] ([facility])67331 [place] [address] Glucose [Mass/Vol] 100 mg/dL High 74-99 [facility] Comment on above: Performed By: #### 2 4323-8 ####BHANU GREGORY L ([id number])[facility] ([facility])61667 [place] [address] Potassium [Moles/Vol] 3.8 mmol/L Normal 3.5-5.3 [facility] Comment on above: Performed By: #### 2 4323-8 ####BHANU GREGORY L ([id number])[facility] ([facility])[address] [place] [address] Protein [Mass/Vol] 5.5 g/dL Low 6.4-8.2 [facility] Comment on above: Performed By: #### 2 4323-8 ####BHANU Treviño ([id number])[facility] ([facility])[address] [place] [address] Sodium [Moles/Vol] 139 mmol/L Normal 136-145 [facility] Comment on above: Performed By: #### 2 4323-8 ####BHANU Treviño ([id number])[facility] ([facility])[address] [place] [address] Urea nitrogen [Mass/Vol] 7 mg/dL Normal 6-23 [facility] Comment on above: Performed By: #### 2 4323-8 ####BHANU Treviño ([id number])[facility] ([facility])[address] [place] [address] Magnesiumon 01-20-2025 Magnesium [Mass/Vol] 1.94 mg/dL Normal 1.60-2.40 [facility] Comment on above: Performed By: #### 1 9123-9 ####BHANU Treviño ([id number])[facility] ([facility])[address] [place] [address] 46791 RBC shape Nom (Bld)on 2024 Hypochromia Ql (Bld) Mild Normal [facility] Comment on above: Performed By: #### 1 8225-3 ####BHANU Treviño ([id number])[facility] ([facility])[address] [place] [address]30 RBC morphology finding Nom (Bld) See Below Normal [facility] Comment on above: Performed By: #### 1 8225-3 ####BHANU Treviño ([id number])[facility] ([facility])[address] [place] [address] 629[address] CBC W Auto Differential pane l (Bld)on 01-19-2025 Basophils (Bld) [#/Vol] 0.05 x10*3/uL Normal 0.00-0.10 [facility] Comment on above: Performed By: #### 5 7021-8 ####BHANU Treviño ([id number])[facility] ([facility])84694 [place] [address] Basophils/100 WBC (Bld) 0.5 % Normal 0.0-2.0 [facility] Comment on above: Performed By: #### 5 7021-8 ####BHANU Treviño ([id number])[facility] ([facility])13002 [place] [address] Eosinophils (Bld) [#/Vol] 0.70 x10*3/uL Normal 0.00-0.70 [facility] Comment on above: Performed By: #### 5 7021-8 ####BHANU Treviño ([id number])[facility] ([facility])[address]313 [place] [address] No Panel Informationon 01-13 Actual Fractions Delivered 5 [facility] Actual Session Delivered Dose [address] [facility] Actual Total Dose 2000 cGray [facility] Course Number 1 [facility] Elapsed Days 6 [facility] Last Date 01/13/2025 [facility] Prescribed Fractional Dose [address] [facility] Prescribed Number of Fractions 5 [facility] Prescribed Technique 3D [facility] Prescribed Total Dose 2000 cGray [facility] Prescription Pattern Comment [address] [facility] Start Date 01/07/2025 [facility] Treatment Site L [facility] Rad Onc Msq Treatment Summar yon 01-10-2025 Actual Fractions Delivered 4 [facility] Actual Session Delivered Dose [address] [facility] Actual Total Dose 1600 cGray [facility] Course Number 1 [facility] Elapsed Days 3 [facility] Last Date 01/10/2025 [facility] Prescribed Fractional Dose [address] [facility] Prescribed Number of Fractions 5 [facility] Prescribed Technique 3D [facility] Prescribed Total Dose 2000 cGray [facility] Prescription Pattern Comment [address] [facility] Start Date 01/07/2025 [facility] Treatment Site [facility] Rad Onc Msq Treatment Summar yon 01-09-2025 Actual Fractions Delivered 3 [facility] Actual Session Delivered Dose [address] [facility] Actual Total Dose 1200 cGray [facility] Course Number 1 [facility] Elapsed Days 2 [facility] Last Date 01/09/2025 [facility] Prescribed Fractional Dose [address] [facility] Prescribed Number of Fractions 5 [facility] Prescribed Technique 3D [facility] Prescribed Total Dose 2000 cGray [facility] Prescription Pattern Comment [address] [facility] Start Date 01/07/2025 [facility] Treatment Site [facility] Rad Onc Msq Treatment [place]mar 01-08-2025 Actual Fractions Delivered 2 [facility] Actual Session Delivered Dose [address] [facility] Actual Total Dose 800 cGray [facility] Course Number 1 [facility] Elapsed Days 1 [facility] Last Date 01/08/2025 [facility] Prescribed Fractional Dose [address] [facility] Prescribed Number of Fractions 5 [facility] Prescribed Technique 3D [facility] Prescribed Total Dose 2000 cGray [facility] Prescription Pattern Comment [address] [facility] Start Date 01/07/2025 [facility] Treatment Site L [facility] No Panel Informationon 01-02 These images are not reportable by radiology and will not be interpreted by Radiologists. IMAGING 30on 12-24-2024 30 Problem: Knowledge Deficit Goal: Patient/family/careg iver demonstrates understanding of disease process, treatment plan, medications, and discharge instructions Outcome: Adequate for Discharge Problem: Potential for Compromised Skin Integrity Goal: Skin Integrity is Maintained or Improved Outcome: Adequate for Discharge Goal: Nutritional status is improving Outcome: Adequate for Discharge Problem: Urinary Incontinence Goal: Perineal skin integrity is maintained or improved Outcome: Adequate for Discharge Problem: Potential for Falls Goal: I will remain free of falls Outcome: Adequate for Discharge Problem: Discharge Barriers Goal: My discharge needs are met Outcome: Adequate for Discharge Problem: Pain - Adult Goal: Verbalizes/displays adequate comfort level or baseline comfort level Outcome: Adequate for Discharge Problem: Safety - Adult Goal: Free from fall injury Outcome: Adequate for Discharge Problem: Discharge Planning Goal: Discharge to home or other facility with appropriate resources Outcome: Adequate for Discharge Problem: Chronic Conditions and Co-morbidities Goal: Patient's chronic conditions and co-morbidity symptoms are monitored and maintained or improved Outcome: Adequate for Discharge [facility] 30 Problem: Knowledge Deficit Goal: Patient/family/careg iver demonstrates understanding of disease process, treatment plan, medications, and discharge instructions 12/24/2024104 by Diana Wise RN Outcome: Progressing 12/24/2024103 by Diana Wise RN Outcome: Progressing 12/23/20242013 by Diana Wise RN Outcome: Progressing Problem: Urinary Incontinence Goal: Perineal skin integrity is maintained or improved 12/24/2024104 by Diana Wise RN Outcome: Progressing 12/24/2024103 by Diana Wise RN Outcome: Progressing 12/23/20242013 by Diana Wise RN Outcome: Progressing Problem: Potential for Falls Goal: I will remain free of falls 12/24/2024104 by Diana Wise RN Outcome: Progressing 12/24/2024103 by Diana Wise RN Outcome: Progressing 12/23/20242013 by Diana Wise RN Outcome: Progressing Problem: Discharge Barriers Goal: My discharge needs are met 12/24/2024104 by Diana Wise RN Outcome: Progressing 12/24/2024103 by Diana Wise RN Outcome: Progressing 12/23/20242013 by Diana Wise RN Outcome: Progressing Problem: Pain - Adult Goal: Verbalizes/displays adequate comfort level or baseline comfort level 12/24/2024104 by Diana Wise RN Outcome: Progressing 12/24/2024103 by Diana Wise RN Outcome: Progressing 12/23/20242013 by Diana Wise RN Outcome: Progressing Problem: Safety - Adult Goal: Free from fall injury 12/24/2024104 by Diana Wise RN Outcome: Progressing 12/24/2024103 by Diana Wise RN Outcome: Progressing 12/23/20242013 by Diana Wise RN Outcome: Progressing Flowsheets (Taken 12/23/20242009) Free from fall injury: Instruct family/caregiver on patient safety Based on caregiver fall risk screen, instruct family/caregiver to ask for assistance with transferring if caregiver noted to have fall risk factors Problem: Discharge Planning Goal: Discharge to home or other facility with appropriate resources 12/24/2024104 by Diana Wise RN Outcome: Progressing 12/24/2024103 by Diana Wise RN Outcome: Progressing 12/23/20242013 by Diana Wise RN Outcome: Progressing Problem: Chronic Conditions and Co-morbidities Goal: Patient's chronic conditions and co-morbidity symptoms are monitored and maintained or improved 12/24/2024104 by Diana Wise RN Outcome: Progressing 12/24/2024103 by Diana Wise RN Outcome: Progressing 12/23/20242013 by Diana Wise RN Outcome: Progressing Normal [facility] BASIC METABOLIC PANELon 04-0 Anion gap [Moles/Vol] 7 mmol/L Normal 3-13 [facility] Comment on above: Performed By: #### L AB15 ####Gambling Broker: JAZLYN JIMENEZ ([id number])[facility] ([facility])[address] [place] [address] Calcium [Mass/Vol] 10.3 mg/dL High 8.4-10.2 [facility] Comment on above: Performed By: #### L AB15 ####Gambling Broker: JAZLYN JIMENEZ ([phone])[facility] ([facility])[address] [place] [address] [place] Chloride [Moles/Vol] 108 mmol/L High 98-107 [facility] Comment on above: Performed By: #### L AB15 ####Gambling Broker: JAZLYN JIMENEZ ([phone])[facility] ([facility])[address] [place] [address] [place] CO2 [Moles/Vol] 24 mmol/L Normal 22-29 [facility] Comment on above: Performed By: #### L AB15 ####Gambling Broker: JAZLYN JIMENEZ ([phone])[facility])[address] [place] [address] Creatinine [Mass/Vol] 1.04 mg/dL Normal 0.72-1.25 [facility] Comment on above: Performed By: #### L AB15 ####Gambling Broker: JAZLYN JIMENEZ ([phone])[facility])[address] [place] [address] GLOMERULAR FILTRATION RATE ML/MIN/1.73 SQ M.PREDICTED 86.9 mL/min/1.73m*2 Normal >60.0 [facility] Comment on above: Result Comment: Calc ulation based on the Chronic Kidney Disease Epidemiology Collaboration (CKD-EPI) equation refit without adjustment for race Performed By: #### L [id number] ####Gambling Broker: JAZLYN JIMENEZ ([id number])[facility])[address] [place] [address] Glucose [Mass/Vol] 97 mg/dL Normal 74-100 [facility] Comment on above: Performed By: #### L [id number] ####Gambling Broker: JAZLYN JIMENEZ ([id number])[facility])[address] [place] [address] Potassium [Moles/Vol] 3.7 mmol/L Normal 3.5-5.1 [facility] Comment on above: Result Comment: [facility] potassium values may be up to 0.5 mmol/L lower than serum values. Performed By: #### L [id number] ####Gambling Broker: JAZLYN JIMENEZ ([id number])[facility])[address] [place] [address] Sodium [Moles/Vol] 139 mmol/L Normal 136-145 [facility] Comment on above: Performed By: #### L [id number] ####Gambling Broker: JAZLYN JIMENEZ ([id number])[facility])[address] [place] [address] Urea nitrogen [Mass/Vol] 7 mg/dL Low 9-23 [facility] Comment on above: Performed By: #### L [id number] ####Gambling Broker: JAZLYN JIMENEZ ([id number])[facility] ([id number] Basic metabolic 1998 panelOr dered By: Eboni Camacho on 12-24-2024 Anion gap [Moles/Vol] 7 mmol/L 3 - 13 mmol/L [facility] Calcium [Mass/Vol] 10.3 mg/dL High 8.4 - 10. 2 mg/dL [facility] Chloride [Moles/Vol] 108 mmol/L High 98 - 10 7 mmol/L [facility] CO2 [Moles/Vol] 24 mmol/L 22 - 29 mmol/L [facility] Creatinine [Mass/Vol] 1.04 mg/dL 0.72 - 1.25 mg/dL [facility] GFR/1.73 sq M.predicted (S/P/Bld) [Vol rate/Area] 86.9 mL/min - PINF [facility] Comment on above: Calculation based on the Chronic Kidney Disease Epidemiology Collaboration (CKD-EPI) equation refit without adjustment for race Glucose [Mass/Vol] 97 mg/dL 74 - 100 mg/dL [facility] Interpretation and review of laboratory results Abnormal [facility] Potassium [Moles/Vol] 3.7 mmol/L 3.5 - 5.1 mmol/L [facility] Comment on above: Plasma potassium jeri ues may be up to 0.5 mmol/L lower than serum values. Sodium [Moles/Vol] 139 mmol/L 136 - 145 mmol/L [facility] Urea nitrogen [Mass/Vol] 7 mg/dL Low 9 - 23 mg/d L [facility] CBC W Auto Differential pane l (Bld)on 12-24-2024 Basophils (Bld) [#/Vol] 0.1 10*3/uL 0.0 - 0.2 10*3/uL [facility] Basophils/100 WBC (Bld) 0.5 % 0.0 - 2.0 % [facility] Eosinophils (Bld) [#/Vol] 0.8 10*3/uL High 0.0 - 0.5 10*3/uL [facility] Eosinophils/100 WBC (Bld) 5.7 % 0.0 - 6.0 % [facility] [employer] Erythrocyte distribution width (RBC) [Ratio] 17.5 % High 11.5 - 15.0 % [facility] [employer] Hematocrit (Bld) [Volume fraction] 23 % Low 40.0 - 52.0 % [facility] Hemoglobin (Bld) [Mass/Vol] 7.1 g/dL Low 13.0 - 18.0 g/dL [facility] [employer] Immature granulocytes (Bld) [#/Vol] 0.1 10*3/uL High NINF - 0.1 10*3/uL [facility] Immature granulocytes/100 WBC (Bld) 0.4 % 0.0 - 2.0 % [facility] Interpretation and review of laboratory results Abnormal [facility] [employer] Lymphocytes (Bld) [#/Vol] 1.5 10*3/uL 1.0 - 4.3 10*3/uL [facility] Lymphocytes/100 WBC (Bld) 9.9 % Low 15.0 - 45.0 % [facility] [employer] MCH (RBC) [Entitic mass] 24.6 pg Low 26. 0 - 34.0 pg [facility] [employer] MCHC (RBC) [Mass/Vol] 30.9 % 30.5 - 36.0 % [facility] MCV (RBC) [Entitic vol] 79.6 fL 77.0 - 99.0 fL [facility] [employer] Monocytes (Bld) [#/Vol] 1.4 10*3/uL High 0.0 - 0.9 10*3/uL [facility] Monocytes/100 WBC (Bld) 9.4 % 5.0 - 13.0 % [facility] Neutrophils (Bld) [#/Vol] 11 10*3/uL High 1.8 - 7.5 10*3/uL [facility] Neutrophils/100 WBC (Bld) 74.1 % 38.0 - 82.0 % [facility] [employer] Nucleated RBC/100 WBC (Bld) [Ratio] 0 % [facility] [employer] Platelet mean volume (Bld) [Entitic vol] 8.8 fL Low 9.0 - 12.7 fL [facility] [employer] Platelets (Bld) [#/Vol] 577 10*3/uL High 140 - 440 10*3/uL [facility] RBC (Bld) [#/Vol] 2.89 10*6/uL Low 4.40 - 5.9 0 10*6/uL [facility] WBC (Bld) [#/Vol] 14.8 10*3/uL High 3.6 - 10.7 10*3/uL [facility] CBC WITH AUTO DIFFERENTIALon 12-24-2024 Basophils (Bld) [#/Vol] 0.1 10*3/uL Normal 0.0-0.2 [facility] Comment on above: Performed By: #### L [id number] ####Gambling Broker: JAZLYN JIMENEZ ([id number])[facility])[address] [place] [address] Basophils/100 WBC (Bld) 0.5 % Normal 0.0-2.0 [facility] Comment on above: Performed By: #### L [id number] ####Gambling Broker: JAZLYN JIMENEZ ([id number])[facility])[address] [place] [address] Eosinophils (Bld) [#/Vol] 0.8 10*3/uL High 0.0-0.5 [facility] Comment on above: Performed By: #### L [id number] ####Gambling Broker: JAZLYN JIMENEZ ([id number])[facility])[address] [place] [address] Eosinophils/100 WBC (Bld) 5.7 % Normal 0.0-6.0 [facility] Comment on above: Performed By: #### L [id number] ####Gambling Broker: JAZLYN JIMENEZ ([id number])[facility])[address] [place] [address] Erythrocyte distribution width (RBC) [Ratio] 17.5 % High 11.5-15.0 [facility] Comment on above: Performed By: #### L [id number] ####Gambling Broker: JAZLYN JIMENEZ ([id number])[facility])[address] [place] [address] Hematocrit (Bld) [Volume fraction] 23.0 % Low 40.0-52.0 [facility] Comment on above: Performed By: #### L [id number] ####Gambling Broker: JAZLYN JIMENEZ ([id number])[facility])[address] [place] [address] Hemoglobin (Bld) [Mass/Vol] 7.1 g/dL Low 13.0-18.0 [facility] Comment on above: Performed By: #### L [id number] ####Gambling Broker: JAZLYN JIMENEZ ([id number])[facility])[address] [place] [address] IMMATURE GRANS % 0.4 % Normal 0.0-2.0 [facility] Comment on above: Performed By: #### L [id number] ####Gambling Broker: JAZLYN JIMENEZ ([id number])[address] IMMATURE GRANS ABSOLUTE 0.1 10*3/uL High <0.1 [facility] Comment on above: Performed By: #### L [id number] ####Gambling Broker: JAZLYN JIMENEZ ([id number])[facility])[address] [place] [address] Lymphocytes (Bld) [#/Vol] 1.5 10*3/uL Normal 1.0-4.3 [facility] Comment on above: Performed By: #### L [id number] ####Gambling Broker: JAZLYN JIMENEZ ([id number])[address] Lymphocytes/100 WBC (Bld) 9.9 % Low 15.0-45.0 [facility] Comment on above: Performed By: #### L [id number] ####Gambling Broker: JAZLYN JIMENEZ ([id number])[facility])[address] [place] [address] MCH (RBC) [Entitic mass] 24.6 pg Low 26.0-34.0 [facility] Comment on above: Performed By: #### L [id number] ####Gambling Broker: JAZLYN JIMENEZ ([id number])[facility])[address] [place] [address] MCHC 30.9 % Normal 30.5-36.0 [facility] Comment on above: Performed By: #### L [id number] ####Gambling Broker: JAZLYN JIMENEZ ([id number])[facility])[address] [place] [address] MCV (RBC) [Entitic vol] 79.6 fL Normal 77.0-99.0 [facility] Comment on above: Performed By: #### L [id number] ####Gambling Broker: JAZLYN JIMENEZ ([id number])[facility])[address] [place] [address] Monocytes (Bld) [#/Vol] 1.4 10*3/uL High 0.0-0.9 [facility] Comment on above: Performed By: #### L [id number] ####Gambling Broker: JAZLYN JIMENEZ ([id number])[facility] ([facility])[address] [place] [address] Monocytes/100 WBC (Bld) 9.4 % Normal 5.0-13.0 [facility] Comment on above: Performed By: #### L [id number] ####Gambling Broker: JAZLYN JIMENEZ ([id number])[facility] ([facility])[address] [place] [address] NEUTROPHILS ABSOLUTE 11.0 10*3/uL High 1.8-7.5 [facility] Comment on above: Performed By: #### L [id number] ####Gambling Broker: JAZLYN JIMENEZ ([id number])[facility])[address] [place] [address] Neutrophils/100 WBC (Bld) 74.1 % Normal 38.0-82.0 [facility] Comment on above: Performed By: #### L [id number] ####Gambling Broker: JAZLYN JIMENEZ ([id number])[facility])[address] [place] [address] [place] NRBC 0.0 /100 WBCs Normal 0.0-2.0 [facility] Comment on above: Performed By: #### L [id number] ####Gambling Broker: JAZLYN JIMENEZ ([id number])[facility])[address] [place] [address] Platelet mean volume (Bld) [Entitic vol] 8.8 fL Low 9.0-12.7 [facility] Comment on above: Performed By: #### L [id number] ####Gambling Broker: JAZLYN JIMENEZ ([id number])[facility] ([facility])[address] [place] [address] Platelets (Bld) [#/Vol] 577 10*3/uL High 140-440 [facility] Comment on above: Performed By: #### L [id number] ####Gambling Broker: JAZLYN JIMENEZ ([id number])[facility])[address] [place] [address] RBC (Bld) [#/Vol] 2.89 10*6/uL Low 4.40-5.90 [facility] Comment on above: Performed By: #### L [id number] ####Gambling Broker: JAZLYN JIMENEZ ([id number])[facility])[address] [place] [address] WBC (Bld) [#/Vol] 14.8 10*3/uL High 3.6-10.7 [facility] Comment on above: Performed By: #### L [id number] ####Gambling Broker: JAZLYN JIMENEZ ([id number])[facility])[address] [place] [address] Consulton 12-24-2024 Consult [facility] Wound Care CONSULT Note Kevan La AGE: 49 y.o. GENDER: male : 1975 Subjective: HISTORY of PRESENT ILLNESS HPI Kevan La is a 49 y.o. male who presents for a wound consult. HPI: Kevan is a 49 y.o. male with past medical history of chronic hidradenitis and recent squamous cell carcinoma presents with acute on chronic wound in septic shock. Initial vitals 89/54. Labs sig or WBC 19, LA 1.7. BC taken Received zosyn, vancomycin and fluids. [facility] accepted him but waiting on bed until later this afternoon. Pt states he was dropped off here from [facility] as it was the closest hospital. All his doctors including derm, surgery are at . Wound Care consulted for left hip/thigh. Photo's in chart from ED. 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 PAST MEDICAL HISTORY No past medical history on file. PAST SURGICAL HISTORY No past surgical history on file. FAMILY HISTORY No family history on file. SOCIAL HISTORY ALLERGIES Allergies Allergen Reactions Banana Itching MEDICATIONS No current facility-administere d medications on file prior to encounter. Current Outpatient Medications on File Prior to Encounter Medication Sig Dispense Refill gabapentin (Neurontin) 300 MG capsule Take 300 mg by mouth 2 times daily. cholecalciferol (Vitamin D3) 200 Unit tablet split tablet Take 10,000 Units by mouth daily. ferrous sulfate 325 (65 Fe) MG EC tablet Take 1 tablet by mouth daily. melatonin 3 MG tablet Take 1 tablet (3 mg) by mouth Nightly as needed for sleep. naloxone (Narcan) 0.4 MG/ML injection Infuse 1 mL (0.4 mg) into a venous catheter as needed for opioid reversal. ondansetron (Zofran) 4 MG/2ML injection Infuse 2 mL (4 mg) into a venous catheter every 6 hours as needed for nausea or vomiting. piperacillin-tazobac daley (Zosyn) IVPB 3.375 g in 50 mL (premix) Infuse 50 mL (3.375 g) into a venous catheter every 8 hours. vancomycin 1,000 mg in sodium chloride 0.9 % 250 mL IVPB Infuse 1,000 mg into a venous catheter every 12 hours. REVIEW OF SYSTEMS Pertinent items are noted in HPI. Objective: BP (!) 95/45 (BP Location: Left arm, Patient Position: Lying) Pulse 83 Temp 36.7 ?C (98 ?F) (Temporal) Resp 15 Ht 6' 7.02" (2.007 m) Wt 198 lb 6.6 oz (90 kg) SpO2 97% BMI 22.34 kg/m? PHYSICAL EXAM General appearance: in no apparent distress, alert, and oriented times 3 Skin: warm and dry Pulmonary: Normal effort, no respiratory distress, no cyanosis Left hip/post thigh: [id number]. Wound beds with pink tissue and slough. Foul odor noted. Large serosanguinous drainage noted. Periwound with erythema noted. 12/24/24 LABS CBC: Lab Results Component Value Date WBC 14.8 (H) 12/24/2024 HGB 7.1 (L) 12/24/2024 HCT 23.0 (L) 12/24/2024 MCV 79.6 12/24/2024 PLT 577 (H) 12/24/2024 BMP: Lab Results Component Value Date NA 139 12/24/2024 K 3.7 12/24/2024 CL 108 (H) 12/24/2024 CO2 24 12/24/2024 BUN 7 (L) 12/24/2024 CREATININE 1.04 12/24/2024 PT/INR: No results found for: "PROTIME", "INR" Prealbumin: No results found for: PREALBUMIN Albumin:No components found for: "LABALBU" Sed Rate:No results found for: "SEDRATE" Micro: No components found for: "BC" Assessment/Plan: Nursing staff to perform dressing change: Left hip/post thigh: Squamous Cell Carcinoma -Cleanse with dakins soaked gauze. Pack wet to dry dakins soaked gauze, cover with ABD pads BID and PRN Nutritional support Wound Care to follow Recommend to follow up at [facility] care center after hospital discharge. Any questions or concerns please secure chat "ACH wound/ostomy". Thank you for the consult! I personally obtained the gomez and critical portions of the history and physical exam. I reviewed the labs, imaging studies, and electronic medical record. I reviewed the chart documentation and discussed the patient with treatment team members. I have edited the note to reflect my clinical findings and my assessment and plan. Please note, the time of this note does not reflect the time I saw this patient today, but the time of this documentaton. Portions of this note including HPI, ROS, impression/plan, and examination may have been copied forward from admission to today as to provide important historical information essential in contributing to medical decision making. Documentation has been reviewed and edited as necessary to support clinical decision making for today's visit and to reflect my own independent evaluation of this patient. Decision making for today's visit and to reflect my own independent evaluation of this patient. [facility] Nursing Noteon 12-24-2024 Nursing Note See new oxy 5 mg one time dose order [facility] Nursing Note Attending secure chatted due to patient asking for PRN pain meds with soft BP's. Awaiting answer [facility] Nursing Note Called and this nurse gave report to Lori NEWTON for patient. P/U time still 1230. Patient updated. [facility] Nursing Note Call received from . Patient has bed waiting at [facility]. Nurse to nurse report number [phone]. Social work to arrange transportation in AM. Patient notified [facility] 30on 12-23-2024 30 Problem: Knowledge Deficit Goal: Patient/family/careg iver demonstrates understanding of disease process, treatment plan, medications, and discharge instructions Outcome: Progressing Problem: Potential for Compromised Skin Integrity Goal: Skin Integrity is Maintained or Improved Outcome: Progressing Goal: Nutritional status is improving Outcome: Progressing Problem: Potential for Falls Goal: I will remain free of falls Outcome: Progressing Problem: Pain - Adult Goal: Verbalizes/displays adequate comfort level or baseline comfort level Outcome: Progressing Problem: Pain - Adult Goal: Verbalizes/displays adequate comfort level or baseline comfort level Outcome: Progressing Problem: Chronic Conditions and Co-morbidities Goal: Patient's chronic conditions and co-morbidity symptoms are monitored and maintained or improved Outcome: Progressing [facility] Consulton 12-23-2024 Consult Attestation signed by Noah Stewart DO at 12/23/2024 7:11 PM I have personally performed a [id number] diagnostic evaluation on this patient on date of service 12/23/24. History, labs, imaging studies, and electronic medical record have been reviewed by me. This note documented by the []Critical Care Fellow [x]nanny/household manager []BRITTNEY reflects my history, exam, and medical decision making. I have reviewed and agree with the care plan. Changes were made in the orders as necessary. ROS documentation was reviewed and negative unless otherwise stated in HPI. Additional pertinent interval history, ROS, and physical exam findings: AdmitDate = 12/22/2024 LOS: 0 Brought to ER from NH/SNF with concern for worsening left hip wound with inc in drainage and foul smell. Currently being treated for SCC of left hip/buttock. Has been accepted for transfer to but is awaiting bed availability. MICU was contacted d/t hypotension in the ER. Assessment: SCC left hip on Ctx. Hidradinitis supp. Gluteal abscess/wound -- present on admit. Chronic hypotension/soft BP Plan: Ok to remain on GMF at this time. Is currently off pressors and is hemodynamically stable with SBP in 90s and MAP in 70s on right arm. In addition, lactic has been normal and pt is asymptomatic while lying on ER gurney. At this time he has no other ICU requirements. Agree with ongoing Abx and support of euvolemia. Continue pain control regimen per medicine team. In my professional opinion this pt remains critically ill based on the aforementioned assessment/plan: No Disposition: remain GMF status for now Critical Care Time: 35min Or Noncritical Care Time: n/a Total time caring for this patient including direct patient contact, review of data including imaging and labs, discussions with other team members and physicians, excluding procedures. Internal Medicine: MICU Initial Consult Name: Kevan La : 1975(49 y.o.) Date: 12/23/24 Attending: Dr. Stewart Subjective: Chief Complaint: Hypotension HPI: Mr. La is a 49 year old male with PMHx squamous cell carcinoma of L hip and hidradenitis suppurativa who presented to [facility] 12/22 from [facility] for increased drainage and malodor of L hip wound. He is awaiting transfer to [facility]. Of note, patient recently hospitalized at 12/07 - 12/17 and [facility] through 01/12. He had a follow-up oncology appointment 12/20 with infusion of Cemiplimab. On presentation, vitals significant for BP 89/54, 77 bpm, 36.7 C. Initial laboratory work-up significant for WBC 19.4, LA 1.7, Ca 11.2. Blood cultures and wound cultures pending. Hip x-ray with no acute osseous abnormality. Patient received sepsis bolus at 30 ml/kg, and briefly required levophed for hypotension. Has been off levophed since 505. Patient is s/p 4 L fluid bolus, and is currently receiving continuous LR at 125 mL/hr. ICU consulted for persistent hypotension. On examination, patient denies any lightheadedness, dizziness, or chest pain. Reports tolerating PO intake today. His main complaint is L hip pain. He reports a history of low blood pressure, and states he has troubles with his pressure readings of his L arm. No past medical history on file. No past surgical history on file. No family history on file. Social History Socioeconomic History Marital status: Single Spouse name: Not on file Number of children: Not on file Years of education: Not on file Highest education level: Not on file Occupational History Not on file Tobacco Use Smoking status: Not on file Smokeless tobacco: Not on file Substance and Sexual Activity Alcohol use: Not on file Drug use: Not on file Sexual activity: Not on file Other Topics Concern Not on file Social History Narrative Not on file Social Drivers of Health Financial Resource Strain: Medium Risk (12/07/2024) Received from [facility] Overall Financial Resource Strain (CARDIA) Difficulty of Paying Living Expenses: Somewhat hard Food Insecurity: No Food Insecurity (12/07/2024) Received from [facility] Hunger Vital Sign Worried About Running Out of Food in the Last Year: Never true Ran Out of Food in the Last Year: Never true Recent Concern: Food Insecurity - Food Insecurity Present (10/11/2024) Received from [facility] Hunger Vital Sign Worried About Running Out of Food in the Last Year: Sometimes true Ran Out of Food in the Last Year: Sometimes true Transportation Needs: No Transportation Needs (12/07/2024) Received from [facility] - [facility] Lack of Transportation (Medical): No Lack of (more content not included)... [facility] ED Nursing Noteon 12-23-2024 ED Nursing Note RN informed patient admitting team of patient b/p . Pt on the monitor. Pt declined feeling dizzy or nauseous. Pt want pants, RN is looking for pants [facility] ED Nursing Note Pt moved into inpatient bed. Pt on the monitor. [facility] ED Nursing Note Report given to Sunni NEWTON [facility] ED Nursing Note Received report from Parish NEWTON [facility] ED Nursing Note Levo drip turned off. BP 102/64. [facility] Progress Noteon 12-23-2024 Progress Note Pharmacy Managed Vancomycin Dosing Service Consult Note Consult Date: 12/23/24 Patient Name: Kevan La Allergies: Banana Age: 49 y.o. Sex: male Estimated body mass index is 22.19 kg/m? as calculated from the following: Height as of this encounter: 2.007 m (6' 7"). Weight as of this encounter: 89.4 kg (197 lb). DW: 89 kg Lab Results Component Value Date CREATININE 1.16 12/22/2024 CREATININE 1.17 12/07/2024 BUN 11 12/22/2024 BUN 14 12/07/2024 WBC 19.4 (H) 12/22/2024 WBC 12.0 (H) 12/07/2024 Calculated CrCl: 95 mL/min (Cockcroft-Gault) Consulted By: Clarita Hay Infectious Diagnosis: SSTI (AUC Goal 400-600 mg/L*hr) Random Vancomycin Level Due: 12/25 Antimicrobials: Patient recently received an antibiotic (last 12 hours) Date/Time Action Medication Dose Rate 12/23/24 0924 New Bag piperacillin-tazobac daley (Zosyn) IVPB 4,500 mg 4,500 mg 200 mL/hr 12/23/24 0417 New Bag piperacillin-tazobac daley (Zosyn) IVPB 4,500 mg 4,500 mg 200 mL/hr Assessment/Plan: Doses, serum creatinine, and vancomycin levels interfaced automatically to [employer] I/O and data has been analyzed and interpreted. Start Vancomycin 1250 mg every 12 hours based on patient age, weight, renal function, and infectious diagnosis (14 mg/kg). Predicted AUC = 549 mg/L*hr (goal 400-600 mg/L*hr) PAUC = 88% (probability that AUC is >400 mg/L*hr) Pconc = 24% (probability that Ctrough is above 20 mcg/mL (toxicity)) Will assess random level on 12/25 and adjust as appropriate. Trend serum creatinine. Orders placed. Thank you for this consult. Please secure text or call with questions. DATE: 12/23/24 TIME: 10:19 AM Sharron Ramon PharmD Clinical Pharmacist Available via Secure Chat [facility] BLOOD CULTUREon 12-22-2024 Bacteria identified Cx Nom (Bld) BLOOD CULTURE Reference No growth at 5 days ORDER COMMENTS: Blood Collection Site: Right Arm [ S = SUSCEPTIBLE R = RESISTANT I = INTERMEDIATE S-DD = Susceptible-dose dependent NS = Non-susceptible NO = No Interpretation ] [facility] Comment on above: Performed By: #### L [id number], [id number] #### Gambling Broker: JAZLYN JIMENEZ ([phone]) [address] Bacteria identified Cx Nom (Bld) BLOOD CULTURE Reference No growth at 5 days ORDER COMMENTS: Blood Collection Site: Left Arm [ S = SUSCEPTIBLE R = RESISTANT I = INTERMEDIATE S-DD = Susceptible-dose dependent NS = Non-susceptible NO = No Interpretation ] [facility] Comment on above: Performed By: #### L [id number], [id number] #### Gambling Broker: JAZLYN JIMENEZ ([id number]) [address] CBC W Auto Differential pane l (Bld)Ordered By: Flores Rausch on 12-22-2024 Erythrocyte distribution width (RBC) [Ratio] 17.3 % High 11.5 - 15.0 % [facility] Hematocrit (Bld) [Volume fraction] 26.8 % Low 40.0 - 52.0 % [facility] Hemoglobin (Bld) [Mass/Vol] 8.4 g/dL Low 13.0 - 18.0 g/dL [facility] Interpretation and review of laboratory results Abnormal [facility] MCH (RBC) [Entitic mass] 25.2 pg Low 26. 0 - 34.0 pg [facility] MCHC (RBC) [Mass/Vol] 31.3 % 30.5 - 36.0 % [facility] MCV (RBC) [Entitic vol] 80.5 fL 77.0 - 99.0 fL [facility] Platelet mean volume (Bld) [Entitic vol] 8.9 fL Low 9.0 - 12.7 fL [facility] Platelets (Bld) [#/Vol] 698 10*3/uL High 140 - 440 10*3/uL [facility] RBC (Bld) [#/Vol] 3.33 10*6/uL Low 4.40 - 5.9 0 10*6/uL [facility] WBC (Bld) [#/Vol] 19.4 10*3/uL High 3.6 - 10.7 10*3/uL [facility] CBC WITH AUTO DIFFERENTIALon 12-22-2024 Erythrocyte distribution width (RBC) [Ratio] 17.3 % High 11.5-15.0 [facility] Comment on above: Performed By: #### L [id number], [id number] #### Gambling Broker: JAZLYN JIMENEZ ([id number]) [facility] [address] [place] [address] Hematocrit (Bld) [Volume fraction] 26.8 % Low 40.0-52.0 [facility] Comment on above: Performed By: #### L [id number], [id number] #### Gambling Broker: JAZLYN JIMENEZ ([phone]) [facility] [address] [place] [address] Hemoglobin (Bld) [Mass/Vol] 8.4 g/dL Low 13.0-18.0 [facility] Comment on above: Performed By: #### L [id number], [id number] #### Gambling Broker: JAZLYN JIMENEZ ([id number]) [facility] ([facility]) [address] [place] [address] MCH (RBC) [Entitic mass] 25.2 pg Low 26.0-34.0 [facility] Comment on above: Performed By: #### Kamila [id number], [id number] #### Gambling Broker: JAZLYN JIMENEZ ([id number]) [facility] ([facility]) [address] [place] [address] MCHC 31.3 % Normal 30.5-36.0 [facility] Comment on above: Performed By: #### L [id number], [id number] #### Gambling Broker: JAZLYN JIMENEZ ([id number]) [facility] ([facility]) [address] [place] [address] MCV (RBC) [Entitic vol] 80.5 fL Normal 77.0-99.0 [facility] Comment on above: Performed By: #### Kamila [id number], [id number] #### Gambling Broker: JAZLYN JIMENEZ ([id number]) [facility] ([facility]) [address] [place] [address] Platelet mean volume (Bld) [Entitic vol] 8.9 fL Low 9.0-12.7 [facility] Comment on above: Performed By: #### L [id number], [id number] #### Gambling Broker: JAZLYN JIMENEZ ([phone]) [facility] ([facility]) [address] [place] [address] Platelets (Bld) [#/Vol] 698 10*3/uL High 140-440 [facility] Comment on above: Performed By: #### L [id number], [id number] #### Gambling Broker: JAZLYN JIMENEZ ([id number]) [facility] ([facility]) [address] [place] [address] RBC (Bld) [#/Vol] 3.33 10*6/uL Low 4.40-5.90 [facility] Comment on above: Performed By: #### L [id number], [id number] #### Gambling Broker: JAZLYN JIMENEZ ([id number]) [facility]) [address] [place] [address] WBC (Bld) [#/Vol] 19.4 10*3/uL High 3.6-10.7 [facility] Comment on above: Performed By: #### L [id number], [id number] #### Gambling Broker: JAZLYN JIMENEZ ([id number]) [facility]) [address] [place] [address] COMPLETE URINALYSISon 2024 BILIRUBIN, TOTAL PRESENCE IN URINE Negative Normal Negative [facility] Comment on above: Performed By: #### L [id number] ####Gambling Broker: JAZLYN JIMENEZ ([phone])[facility] ([facility])[address] [place] [address] Clarity (U) Clear Normal Clear [facility] Comment on above: Performed By: #### L [id number] ####Gambling Broker: JAZLYN JIMENEZ ([phone])[address] Color (U) Light Yellow Normal Lt. Yellow [facility] Comment on above: Performed By: #### L [id number] ####Gambling Broker: JAZLYN JIMENEZ ([phone])[facility] ([facility])[address] [place] [address] GLUCOSE (MG/DL) IN URINE Normal Normal Normal (<70 ) [facility] Comment on above: Performed By: #### L [id number] ####Gambling Broker: JAZLYN JIMENEZ ([phone])[facility])[address] [place] [address] HEMOGLOBIN PRESENCE IN URINE Negative Normal Negative [facility] Comment on above: Performed By: #### L [id number] ####Gambling Broker: JAZLYN [id number])[facility] ([facility])[address] [place] [address] Ketones Ql (U) Negative Normal Negative [facility] Comment on above: Performed By: #### L [id number] ####Gambling Broker: JAZLYN JIMENEZ ([phone])[facility])[address] [place] [address] LEUKOCYTE ESTERASE PRESENCE IN URINE BY TEST STRIP Negative Normal Negative [facility] Comment on above: Performed By: #### L [id number] ####Gambling Broker: JAZLYN JIMENEZ ([phone])[facility] ([facility])[address] [place] [address] NITRITE PRESENCE IN URINE Negative Normal Negative [facility] Comment on above: Performed By: #### L [id number] ####Gambling Broker: JAZLYN JIMENEZ ([phone])[facility])[address] [place] [address] pH (U) 6.0 [pH] Normal 5.0-8.0 [facility] Comment on above: Performed By: #### L [id number] ####Gambling Broker: JAZLYN JIMENEZ ([phone])[facility] ([facility])[address] [place] [address] Protein (U) [Mass/Vol] Negative Normal Negative [facility] Comment on above: Performed By: #### L [id number] ####Gambling Broker: JAZLYN JIMENEZ ([id number])[facility])[address] [place] [address] Specific gravity (U) [Rel density] 1.009 Normal 1.005-1.030 [facility] Comment on above: Performed By: #### L [id number] ####Gambling Broker: JAZLYN JIMENEZ ([id number])[facility])[address] [place] [address] UROBILINOGEN (MG/DL) IN URINE Normal Normal Normal (0-1) [facility] Comment on above: Performed By: #### L [id number] ####Gambling Broker: JAZLYN JIMENEZ ([id number])[facility])[address] [place] [address] COMPREHENSIVE METABOLIC PANE Yuriy 12-22-2024 Albumin [Mass/Vol] 2.6 g/dL Low 3.5-5.0 [facility] Comment on above: Performed By: #### L [id number], [id number] #### Gambling Broker: JAZLYN JIMENEZ ([id number]) [facility]) [address] [place] [address] ALP [Catalytic activity/Vol] 65 U/L Normal 40-150 [facility] Comment on above: Performed By: #### L [id number], [id number] #### Gambling Broker: JAZLYN JIMENEZ ([id number]) [facility] ([facility]) [address] [place] [address] ALT [Catalytic activity/Vol] 6 U/L Normal <40 [facility] Comment on above: Performed By: #### L [id number], [id number] #### Gambling Broker: JAZLYN JIMENEZ ([id number]) [facility]) [address] [place] [address] Anion gap [Moles/Vol] 10 mmol/L Normal 3-13 [facility] Comment on above: Performed By: #### L [id number], [id number] #### Gambling Broker: JAZLYN JIMENEZ ([id number]) [facility] ([facility]) [address] [place] [address] [place] AST [Catalytic activity/Vol] 16 U/L Normal <34 [facility] Comment on above: Performed By: #### L [id number], [id number] #### Gambling Broker: JAZLYN JIMENEZ ([id number]) [facility] ([facility]) [address] [place] [address] [place] Bilirubin [Mass/Vol] 0.4 mg/dL Normal <1.2 [facility] Comment on above: Performed By: #### L [id number], [id number] #### Gambling Broker: JAZLYN JIMENEZ ([id number]) [facility] ([facility]) [address] [place] [address] [place] Calcium [Mass/Vol] 11.2 mg/dL High 8.4-10.2 [facility] Comment on above: Performed By: #### Kamila [id number], [id number] #### Gambling Broker: JAZLYN JIMENEZ ([id number]) [facility] ([facility]) [address] [place] [address] Chloride [Moles/Vol] 98 mmol/L Normal 98-107 [facility] Comment on above: Performed By: #### L [id number], [id number] #### Gambling Broker: JAZLYN JIMENEZ ([id number]) [facility]) [address] [place] [address] CO2 [Moles/Vol] 24 mmol/L Normal 22-29 [facility] Comment on above: Performed By: #### Kamila [id number], [id number] #### Gambling Broker: JAZLYN JIMENEZ ([phone]) [facility]) [address] [place] [address] Creatinine [Mass/Vol] 1.16 mg/dL Normal 0.72-1.25 [facility] Comment on above: Performed By: #### Kamila KELSEY, [id number] #### Gambling Broker: JAZLYN JIMENEZ ([id number]) [facility]) [address] [place] [address] [place] GLOMERULAR FILTRATION RATE ML/MIN/1.73 SQ M.PREDICTED 76.3 mL/min/1.73m*2 Normal >60.0 [facility] Comment on above: Result Comment: Calc ulation based on the Chronic Kidney Disease Epidemiology Collaboration (CKD-EPI) equation refit without adjustment for race Performed By: #### L [id number], [id number] #### Gambling Broker: JAZLYN JIMENEZ ([id number]) [facility]) [address] [place] [address] [place] Glucose [Mass/Vol] 108 mg/dL High 74-100 [facility] Comment on above: Performed By: #### L [id number], [id number] #### Gambling Broker: JAZLYN [id number]) [facility] ([facility]) [address] [place] [address] Potassium [Moles/Vol] 4.0 mmol/L Normal 3.5-5.1 [facility] Comment on above: Result Comment: [facility] potassium values may be up to 0.5 mmol/L lower than serum values. Performed By: #### L [id number], [id number] #### Gambling Broker: JAZLYN JIMENEZ ([id number]) [facility]) [address] [place] [address] Protein [Mass/Vol] 7.2 g/dL Normal 6.4-8.3 [facility] Comment on above: Performed By: #### L [id number], [id number] #### Gambling Broker: JAZLYN JIMENEZ ([id number]) [facility]) [address] [place] [address] Sodium [Moles/Vol] 132 mmol/L Low 136-145 [facility] Comment on above: Performed By: #### L [id number], [id number] #### Gambling Broker: JAZLYN JIMENEZ ([id number]) [facility]) [address] [place] [address] Urea nitrogen [Mass/Vol] 11 mg/dL Normal 9-23 [facility] Comment on above: Performed By: #### L [id number], [id number] #### Gambling Broker: JAZLYN JIMENEZ ([id number]) [facility]) [address] [place] [address] CULTURE ANAEROBICon 12-23-19 25 CULTURE ANAEROBIC ANAEROBIC CULTURE (A) Reference BACTEROIDES FRAGILIS GROUP Moderate Bacteroides fragilis group (A) FUSOBACTERIUM GONIDIAFORMANS Fusobacterium gonidiaformans (A) This is an edited result. Previous organism was Anaerobic Gram-negative cocci on 12/24/2024 at 1358 EDT. [ S = SUSCEPTIBLE R = RESISTANT I = INTERMEDIATE S-DD = Susceptible-dose dependent NS = Non-susceptible NO = No Interpretation ] Normal [facility] Comment on above: Performed By: #### L [id number], [id number] #### Gambling Broker: JAZLYN JIMENEZ ([phone]) [facility] ([facility]) [address] [place] [address] CULTURE, AEROBIC BACTERIA WI TH GRAM STAINon 12-22-2024 CULTURE, AEROBIC BACTERIA WITH GRAM STAIN CULTURE Reference Many enteric phil present GRAM STAIN RESULT (A) Reference (A) Few Polymorphonuclear leukocytes per low power field Few Gram positive cocci Moderate Gram positive bacilli Few Gram negative bacilli [ S = SUSCEPTIBLE R = RESISTANT I = INTERMEDIATE S-DD = Susceptible-dose dependent NS = Non-susceptible NO = No Interpretation ] Normal [facility] Comment on above: Performed By: #### L [id number], [id number] #### Gambling Broker: JAZLYN JIMENEZ ([id number]) [facility]) [address] [place] [address] Comprehensive metabolic 1998 panelon 12-22-2024 Albumin [Mass/Vol] 2.6 g/dL Low 3.5 - 5.0 g/dL [facility] ALP [Catalytic activity/Vol] 65 U/L 40 - 150 U/L [facility] ALT [Catalytic activity/Vol] 6 U/L [facility] - 40 U/L [facility] Anion gap [Moles/Vol] 10 mmol/L 3 - 13 mmol/L [facility] AST [Catalytic activity/Vol] 16 U/L [facility] - 34 U/L [facility] Bilirubin [Mass/Vol] 0.4 mg/dL [facility] - 1.2 mg/dL [facility] Calcium [Mass/Vol] 11.2 mg/dL High 8.4 - 10. 2 mg/dL [facility] Chloride [Moles/Vol] 98 mmol/L 98 - 10 7 mmol/L [facility] CO2 [Moles/Vol] 24 mmol/L 22 - 29 mmol/L [facility] Creatinine [Mass/Vol] 1.16 mg/dL 0.72 - 1.25 mg/dL [facility] GFR/1.73 sq M.predicted (S/P/Bld) [Vol rate/Area] 76.3 mL/min - PINF [facility] Comment on above: Calculation based on the Chronic Kidney Disease Epidemiology Collaboration (CKD-EPI) equation refit without adjustment for race Glucose [Mass/Vol] 108 mg/dL High 74 - 100 mg/dL [facility] Interpretation and review of laboratory results Abnormal [facility] Potassium [Moles/Vol] 4 mmol/L 3.5 - 5.1 mmol/L [facility] Comment on above: Plasma potassium jeri ues may be up to 0.5 mmol/L lower than serum values. Protein [Mass/Vol] 7.2 g/dL 6.4 - 8.3 g/dL [facility] Sodium [Moles/Vol] 132 mmol/L Low 136 - 145 mmol/L [facility] Urea nitrogen [Mass/Vol] 11 mg/dL 9 - 23 mg/d L [facility] ED Nursing Noteon 12-22-2024 ED Nursing Note Levo titrated to 2mcg/min. Patient BP remains stable. Normal [facility] ED Nursing Note Levo titrated to 4mcg/min. BP remains stable. Patient asymptomatic. Normal [facility] ED Nursing Note Levo titrated to 6mcg/min. BP remains stable. Patient asymptomatic. Normal [facility] ED Nursing Note Report given to Parish [place] Normal [facility] ED Nursing Note Dressing change completed with ABD pads, 2x2s and tape. Pt repostioned and saturated chucks removed Normal [facility] ED Nursing Note Messaged pharmacy regarding missing vancomycin dose Normal [facility] ED Nursing Note Report given to Mary [place] for lunch coverage Normal [facility] ED Provider Noteon ED Provider Note HPI Chief Complaint Patient presents with ? Wound Infection Pt arrives by life care from [facility] in [place], [facility] pt has had wound infection since September, pt stood up out of bed last night and it started bleeding and having a foul odor last night. Presents to the emergency department for evaluation of drainage from his hip wound. Patient states he got up last night and he started having bleeding and oozing from his left hip. He has a history of persistent infection secondary to hidradenitis suppurativa and is currently on Augmentin after returning to his facility about a week ago from [facility] as he has SCC treating with cemiplimab. He reports the facility cannot help him due to ongoing odor and drainage therefore he was referred back to the emergency department. He denies any fever, chills, chest pain, shortness of breath, syncope, abdominal pain, changes in limited range of motion of the hip secondary to his illness. There is no new traumatic incident. He feels like he is otherwise at his baseline andno increased pain. He is tolerating his medications, oral intake and typical urinary output. History provided by: Patient technical research scientist used: No INFORMED PHOTO CONSENT: The patient has given verbal consent to have photos taken of left hip and inserted into their provider note as a part of their permanent medical record for purposes of documentation, treatment management, and/or medical review. All images taken were transmitted and stored on a secure [email or web address] Credit Reference Clerk Site located within a Media Folder Tab by a registered emids Application Device. See "Media" tab in Epic or photo as below. [place] Coma Scale Score: 15 Patient History No past medical history on file. No past surgical history on file. No family history on file. Social History Tobacco Use ? Smoking status: Not on file ? Smokeless tobacco: Not on file Substance Use Topics ? Alcohol use: Not on file ? Drug use: Not on file Physical Exam Visit Vitals BP 103/61 Pulse 74 Temp 36.7 ?C (98 ?F) (Oral) Resp 18 Ht 2.007 m (6' 7") Wt 89.4 kg (197 lb) SpO2 98% BMI 22.19 kg/m? BSA 2.23 m? Physical Exam Constitutional: General: He is not in acute distress. Appearance: He is ill-appearing. Comments: Large open draining wound with malodor upon my entering room HENT: Head: Normocephalic and atraumatic. Mouth/Throat: Lips: [place]. Mouth: Mucous membranes are moist. Cardiovascular: Rate and Rhythm: Normal rate and regular rhythm. Pulses: Radial pulses are 2+ on the left side. Dorsalis pedis pulses are 2+ on the left side. Comments: Resting tachycardia. No leg swelling at the calves. Pulmonary: Effort: Pulmonary effort is normal. Breath sounds: Normal breath sounds. No wheezing or rhonchi. Abdominal: General: Bowel sounds are normal. Palpations: Abdomen is soft. Tenderness: There is no abdominal tenderness. Musculoskeletal: Cervical back: Full passive range of motion without pain and neck supple. Comments: No midline vertebral tenderness. To the left hip there is localized swelling, erythema and multiple open wounds as depicted below. There is drainage and odor. There is no communication to the rectum or perineum. No crepitus. Compartments soft. Patient is able to flex and extend at the left knee. Strong left pedal pulse. Neurovascularly intact. Skin: General: Skin is warm and dry. Capillary Refill: Capillary refill takes less than 2 seconds. Coloration: Skin is not cyanotic or pale. Findings: Wound present. Comments: Left hip wound as depicted below Neurological: Mental Status: He is alert and oriented to person, place, and time. Sensory: Sensation is intact. Motor: Motor function is intact. Coordination: Coordination is intact. Psychiatric: Mood and Affect: Mood normal. Behavior: Behavior is cooperative. XR hip left 2 or 3 views Final Result 1. Irregular soft tissue heterogeneity and subcutaneous emphysema projecting of the left thigh soft tissues. Patient was noted to have an abscess in this region on prior CT. Consider follow-up cross-sectional imaging. 2. No acute osseous abnormality identified. Report Dictated on Electronically Signed By: Jamison Covarrubias MD Electronically Signed Date/Time: 12/22/2024 1:33 PM EDT XR chest 1 view Final Result 1. Lines/Tubes/Devices/ Hardware: Leads noted. Please confirm position and function of any catheters or attempted catheters clinically. 2. Lungs: No convincing acute process.. Consider follow-up with PA and lateral chest for persistent symptoms. 3. Pleura: No convincing significant effusion. No significant pneumothorax. 4. Heart and mediastinum: No convincing acute process. 5. Upper abdomen: No acute process seen. 6. Thorax:No acute bony process Report Dictated on Electronically Signed By: Fidel Navas MD (more content not included)... Normal [facility] ED Provider Note Emergency Department Encounter [facility] EMERGENCY DEPT Patient: Kevan La : 1975 Date of Evaluation: 12/22/2024 ED Supervising Physician: Levi Mack DO I personally evaluated Kevan La and made/approved the management plan and take responsibility for the patient management. This will serve as my Supervisory note and shared attestation. I did perform a substantive portion of the visit including all aspects of the Medical Decision Making. I wore appropriate PPE for the entirety of this encounter. In brief, Kevan La is a 49 y.o. that presents to the emergency department for evaluation of a wound infection. Patient has a history of hidradenitis suppurativa. Had a large abscess in the left buttock that was managed at and is currently at a facility and receiving Augmentin. Facility reporting that they cannot manage his wound due to ongoing odor and drainage therefore sent him to the emergency department. Patient denying systemic symptoms. Focused exam: General: Alert, nontoxic-appearing Eyes: Conjunctiva normal Cardiac: Regular rhythm, normal rate Lungs: No respiratory distress, lungs clear to auscultation Abdomen: Soft, nontender, nondistended MSK: large area of open wound to the left gluteus, foul smelling with drainage. No crepitus. Skin: Warm and dry Neuro: no focal deficits Brief ED course/MDM: 49-year-old male presenting to the ED for a large left gluteal wound due to hidradenitis suppurativa. Had an abscess in this area that was managed at , currently on Augmentin however patient hypotensive in the ED. He was started on 30 cc/kg bolus of IV fluids and broad-spectrum antibiotics. Labs were obtained including lactic and blood cultures. WBC is elevated however his lactic is normal. X-ray of the hip shows some subcutaneous emphysema in the area where he had his known abscess. Low concern for necrotizing infection or osteomyelitis. Patient had downtrending blood pressures while in the ED. After 30 cc/kg bolus of IV fluids his MAP was still in the 50s. Patient was still alert and at baseline. He was started on peripheral Levophed. He had response and then was started on maintenance IV fluids. Chart review shows that the patient has a history of squamous cell carcinoma and hidradenitis suppurativa in the left buttock that is moving toward the left greater trochanter. He is correction had reported that he is currently on chemotherapy. He was hospitalized recently due to concerns of an abscess and had this managed by general surgery at [facility]. He receives most of his care for hidradenitis suppurativa at and is requesting to be transferred given that they are familiar with his care. Believe this is appropriate due to patient will require further evaluation by the surgery and primary team taking care of his chronic wound. We will continue IV antibiotics and IV pressors and transfer patient [place] [facility] [place] management. Diagnostics interpreted by me: I personally discussed the patient's management with other clinicians: Critical Care note: This patient was unstable and required constant supervision by me for 35 minutes during their visit. The patient's condition requiring intervention included: sepsis evaluation, multiple reassessments, vasopressors. This critical care time did not include time for procedures or time spent by the physicians assistant bookkeeper if they were caring for this patient. All diagnostic, treatment, and disposition decisions were made by myself in conjunction with the BRITTNEY. For all further details of the patient's emergency department visit, please see their documentation. (Comment: Please note this report has been produced using speech recognition software and may contain errors related to that system including errors in grammar, punctuation, and spelling, as well as words and phrases that may be inappropriate. If there are any questions or concerns please feel free to contact the dictating provider for clarification.) Levi Mack, DO [facility] [employer] Levi Mack, DO 12/22/24 1730 Levi Mack DO 12/22/24 1755 [facility] ED Provider Note I received this patient in signout who has been awaiting transfer to [facility] for septic shock in the setting of a left buttock wound requiring Levophed. I reviewed his labs and his medications and unfortunately has not been dosed with Zosyn since 1 PM. I reordered that and also timed for every 6 hours. He has been boarding in our emergency department for 16 hours now. We reached out to [facility] and they stated that there would not be a bed for the patient tonight. Given this and the fact that the patient is requiring pressors and ICU level of care that we just cannot provide in the emergency department safely for a long time I will reach out to our medical ICU to see if he can board in their department until the patient gets a bed at . Patient is agreeable to this plan. ICU team recommended giving him some more IV fluids to see if we can get him off the pressors. We were able to successfully get him off of the pressors. His blood pressure has been stable as he was fluid responsive. I reached back out to [facility] to get him accepted to a regular nursing floor. I spoke with Dr Benitez at [facility] who accepted the patient to the regular nursing floor but they will still not have beds until most likely later this afternoon so will plan to admit him here medically so that the can be under the supervision and care of a hospitalist. Admitted in stable condition. Mary Calvert MD 12/23/24 0629 Normal [facility] ED Provider Note Pt signed out to me by Dr. Mack. Pt is awaiting transfer to for septic shock in setting of left buttock wound. Mani Dc, 12/23/24 0115 Normal [facility] LACTIC ACID WITH REFLEXon Lactate [Moles/Vol] 1.7 mmol/L Normal 0.5-2.2 [facility] Comment on above: Performed By: #### L [id number] ####Gambling Broker: JAZLYN JIMENEZ ([phone])[facility] ([address] Laboratory - Chemistry and C hemistry - challengeon 12-22-2024 Lactate [Moles/Vol] 1.7 mmol/L 0.5 - 2. 2 mmol/L [facility] Laboratory - Hematology and Cell countson 12-22-2024 Band form neutrophils (Bld) [#/Vol] 0.4 10*3/uL High NINF - 0.0 10*3/uL [facility] Band form neutrophils/100 WBC (Bld) 2 % High NINF - 0 % [facility] Basophils (Bld) [#/Vol] 0.2 10*3/uL 0.0 - 0.2 10*3/uL [facility] Basophils/100 WBC (Bld) 1 % 0 - 2 % [facility] Lymphocytes (Bld) [#/Vol] 0.8 10*3/uL Low 1.0 - 4.3 10*3/uL [facility] Lymphocytes/100 WBC (Bld) 4 % Low 15 - 45 % [facility] Monocytes (Bld) [#/Vol] 1 10*3/uL High 0.0 - 0.9 10*3/uL [facility] Monocytes/100 WBC (Bld) 5 % 5 - 13 % [facility] Neutrophils (Bld) [#/Vol] 17.5 10*3/uL High 1.8 - 7.5 10*3/uL [facility] Ovalocytes LM Ql (Bld) Moderate Abnormal (none) [facility] Poikilocytosis LM Ql (Bld) Moderate Abnormal (none) [facility] RBC morphology finding Nom (Bld) abnormal [facility] Segmented neutrophils/100 WBC (Bld) 88 % High 38 - 82 % [facility] Stomatocytes LM Ql (Bld) Moderate Abnormal (none) [facility] MANUAL DIFFERENTIAL (CELLAVI CHRIS)on 12-22-2024 BAND NEUTROPHILS TOTAL PER COUNTED LEUKOCYTES BY MANUAL COUNT 2 Normal [facility] Comment on above: Performed By: #### L [id number], [id number] #### Gambling Broker: JAZLYN JIMENEZ ([phone]) [facility] ([facility]) [address] [place] [address] [place] BANDS (10*3/UL) IN BLOOD-CELLAVISION 0.4 10*3/uL High <=0.0 [facility] Comment on above: Performed By: #### L [id number], [id number] #### Gambling Broker: JAZLYN JIMENEZ ([phone]) [facility] ([facility]) [address] [place] [address] [place] BASOPHILS (10*3/UL) IN BLOOD-CELLAVISION 0.2 10*3/uL Normal 0.0-0.2 [facility] Comment on above: Performed By: #### L [id number], [id number] #### Gambling Broker: JAZLYN JIMENEZ ([phone]) [facility] ([facility]) [address] [place] [address] [place] BASOPHILS TOTAL PER COUNTED LEUKOCYTES BY MANUAL COUNT 1 Normal [facility] Comment on above: Performed By: #### L [id number], [id number] #### Gambling Broker: JAZLYN JIMENEZ ([phone]) [facility] ([facility]) [address] [place] [address] [place] BASOPHILS/100 LEUKOCYTES IN BLOOD-CELLAVISION 1 % Normal 0-2 [facility] Comment on above: Performed By: #### L [id number], [id number] #### Gambling Broker: JAZLYN [id number]) [facility] ([facility]) [address] [place] [address] [place] BLASTS TOTAL PER COUNTED LEUKOCYTES BY MANUAL COUNT Normal [facility] Comment on above: Performed By: #### L [id number], [id number] #### Gambling Broker: JAZLYN JIMENEZ ([phone]) [facility]) [address] [place] [address] [place] EOSINOPHILS TOTAL PER COUNTED LEUKOCYTES BY MANUAL COUNT Normal [facility] Comment on above: Performed By: #### L [id number], [id number] #### Gambling Broker: JAZLYN JIMENEZ ([phone]) [facility] ([facility]) [address] [place] [address] [place] LYMPHOCYTES (10*3/UL) IN BLOOD-CELLAVISION 0.8 10*3/uL Low 1.0-4.3 [facility] Comment on above: Performed By: #### L [id number], [id number] #### Gambling Broker: JAZLYN JIMENEZ ([phone]) [facility] ([facility]) [address] [place] [address] LYMPHOCYTES TOTAL PER COUNTED LEUKOCYTES BY MANUAL COUNT Normal [facility] Comment on above: Performed By: #### L [id number], [id number] #### Gambling Broker: JAZLYN JIMENEZ ([phone]) [facility] ([facility]) [address] [place] [address] [place] LYMPHOCYTES/100 LEUKOCYTES IN BLOOD-CELLAVISION 4 % Low 15-45 [facility] Comment on above: Performed By: #### L [id number], [id number] #### Gambling Broker: JAZLYN JIMENEZ ([phone]) [facility] ([facility]) [address] [place] [address] [place] METAMYELOCYTES TOTAL PER COUNTED LEUKOCYTES BY MANUAL COUNT [facility] Comment on above: Performed By: #### L [id number], [id number] #### Gambling Broker: JAZLYN JIMENEZ ([phone]) [facility] ([facility]) [address] [place] [address] [place] MONOCYTES (10*3/UL) IN BLOOD-CELLAVISION 1.0 10*3/uL High 0.0-0.9 [facility] Comment on above: Performed By: #### L [id number], [id number] #### Gambling Broker: JAZLYN JIMENEZ ([phone]) [facility] ([facility]) [address] [place] [address] [place] MONOCYTES TOTAL PER COUNTED LEUKOCYTES BY MANUAL COUNT 5 Normal [facility] Comment on above: Performed By: #### L [id number], [id number] #### Gambling Broker: JAZLYN JIMENEZ ([phone]) [facility] ([facility]) [address] [place] [address] [place] MONOCYTES/100 LEUKOCYTES IN BLOOD-SAM 5 % Normal 5-13 [facility] Comment on above: Performed By: #### L [id number], [id number] #### Gambling Broker: JAZLYN JIMENEZ ([phone]) [facility] ([facility]) [address] [place] [address] [place] MYELOCYTES COUNTED BY MANUAL COUNT Normal [facility] Comment on above: Performed By: #### Kamila [id number], [id number] #### Gambling Broker: JAZLYN JIMENEZ ([phone]) [facility] ([facility]) [address] [place] [address] [place] NEUTROPHILS BAND FORM/100 LEUKOCYTES IN BLOOD-CELLAVISI 2 % High <=0 [facility] Comment on above: Performed By: #### L [id number], [id number] #### Gambling Broker: JAZLYN JIMENEZ ([phone]) [facility] ([facility]) [address] [place] [address] [place] NEUTROPHILS TOTAL PER COUNTED LEUKOCYTES BY MANUAL COUNT 89 Normal [facility] Comment on above: Performed By: #### L [id number], [id number] #### Gambling Broker: JAZLYN JIMENEZ ([phone]) [facility] ([facility]) [address] [place] [address] [place] OVALOCYTES PRESENCE IN BLOOD BY LIGHT MICROSCOPY Moderate Abnormal (none) [facility] Comment on above: Performed By: #### L [id number], [id number] #### Gambling Broker: JAZLYN JIMENEZ ([phone]) [facility] ([facility]) [address] [place] [address] [place] POIKILOCYTOSIS (PRESENCE) IN BLOOD BY LIGHT MICROSCOPY Moderate Abnormal (none) [facility] Comment on above: Performed By: #### L [id number], [id number] #### Gambling Broker: JAZLYN JIMENEZ ([phone]) [facility] ([facility]) [address] [place] [address] [place] PROMYELOCYTES TOTAL PER COUNTED LEUKOCYTES BY MANUAL COUNT Normal [facility] Comment on above: Performed By: #### L [id number], [id number] #### Gambling Broker: JAZLYN JIMENEZ ([phone]) [facility] ([facility]) [address] [place] [address] [place] RBC MORPHOLOGY IN BLOOD abnormal Normal [facility] Comment on above: Performed By: #### L [id number], [id number] #### Gambling Broker: JAZLYN JIMENEZ ([phone]) [facility] ([facility]) [address] [place] [address] [place] SEGMENTED NEUTROPHILS (10*3/UL) IN BLOOD-CELLAVISION 17.5 10*3/uL High 1.8-7.5 [facility] Comment on above: Performed By: #### L [id number], [id number] #### Gambling Broker: JAZLYN JIMENEZ ([phone]) [facility] ([facility]) [address] [place] [address] [place] SEGMENTED NEUTROPHILS/100 LEUKOCYTES-CE 88 % High 38-82 [facility] Comment on above: Performed By: #### L [id number], [id number] #### Gambling Broker: JAZLYN JIMENEZ ([phone]) [facility] ([facility]) [address] [place] [address] [place] STOMATOCYTES IN BLOOD BY LIGHT MICROSCOPY Moderate Abnormal (none) [facility] Comment on above: Performed By: #### L [id number], [id number] #### Gambling Broker: JAZLYN JIMENEZ ([phone]) [facility] ([facility]) [address] [place] [address] [place] UNCLASSIFIED CELLS TOTAL PER COUNTED LEUKOCYTES BY MANUAL COUNT Normal [facility] Comment on above: Performed By: #### L [id number], [id number] #### Gambling Broker: JAZLYN JIMENEZ ([phone]) [facility]) [address] [place] [address] VARIANT LYMPHOCYTES TOTAL PER COUNTED LEUKOCYTES BY MANUAL COUNT Normal [facility] Comment on above: Performed By: #### L [id number], [id number] #### Gambling Broker: JAZLYN JIMENEZ ([phone]) [facility] ([facility]) [address] [place] [address] No Panel Informationon 12-22 Atypical Lymphocytes Manual [facility] Bands Manual 2 [facility] Basophils Manual 1 [facility] Blasts Manual [facility] Eosinophils Manual [facility] Interpretation and review of laboratory results Abnormal [facility] Lymphocytes Manual 4 [facility] Metamyelocytes Manual [facility] Monocytes Manual 5 [facility] Myelocytes Manual [facility] ealth Neutrophils Manual 89 [facility] Promyelocytes Manual [facility] Unclassified Cells, Manual [facility] Interpretation and review of laboratory results Normal [facility] Progress Noteon 12-22-2024 Progress Note Culture reviewed. Awaiting sensitivity results Normal [facility] Urinalysis complete panel (U )on 12-22-2024 Bilirubin Ql (U) Negative Negative mg/dL [facility] Clarity (U) Clear Clear [facility] Color (U) Light Yellow Lt. Yellow [facility] Glucose Ql (U) Normal Normal (<70) mg/dL [facility] Hemoglobin Ql (U) Negative Negative mg/dL [facility] Interpretation and review of laboratory results Normal [facility] Ketones (U) [Mass/Vol] Negative Negat sulema mg/dL [facility] Leukocyte esterase Test strip Ql (U) Negative Negative Gabe/uL [facility] Nitrite Ql (U) Negative Negative [facility] th pH (U) 6.0 [pH] 5.0 - 8.0 pH [facility] Protein (U) [Mass/Vol] Negative Negat sulema mg/dL [facility] Specific gravity (U) [Rel density] 1.009 1.005 - 1.030 [facility] Urobilinogen (U) [Mass/Vol] Normal Normal (0-1) mg/dL [facility] XR Chest Single viewon 12-22 1. Lines/Tubes/Devices/ Hardware: Leads noted. Please confirm position and function of any catheters or attempted catheters clinically. 2. Lungs: No convincing acute process.. Consider follow-up with PA and lateral chest for persistent symptoms. 3. Pleura: No convincing significant effusion. No significant pneumothorax. 4. Heart and mediastinum: No convincing acute process. 5. Upper abdomen: No acute process seen. 6. Thorax:No acute bony process Report Dictated on Electronically Signed By: Fidel Navas MD Electronically Signed Date/Time: 12/22/2024 1:25 PM EDT [facility] Patient Name: KEVAN LA : 1975 Exam Date/Time: 12/22/2024 13:20 Procedure: XR CHEST 1 VIEW Ordering Provider: LEON NICOLE Reason For Exam: concern for sepsis EXAM TYPE: RADIOLOGIC EXAMINATION, CHEST, SINGLE VIEW FRONTAL (CXR SINGLE VIEW) EXAM DATE AND TIME: 12/22/2024 1:20 PM EDT INDICATION: Concern for sepsis COMPARISON: 09/12/2024 TECHNIQUE: A single portable frontal view of the thorax was obtained and reviewed. Special views: None. [facility] Fidel Navas MD - 12/22/2024 Patient Name: KEVAN LA : 1975 Exam Date/Time: 12/22/2024 13:20 Procedure: XR CHEST 1 VIEW Ordering Provider: LEON NICOLE Reason For Exam: concern for sepsis EXAM TYPE: RADIOLOGIC EXAMINATION, CHEST, SINGLE VIEW FRONTAL (CXR SINGLE VIEW) EXAM DATE AND TIME: 12/22/2024 1:20 PM EDT INDICATION: Concern for sepsis COMPARISON: 09/12/2024 TECHNIQUE: A single portable frontal view of the thorax was obtained and reviewed. Special views: None. IMPRESSION: 1. Lines/Tubes/Devices/ Hardware: Leads noted. Please confirm position and function of any catheters or attempted catheters clinically. 2. Lungs: No convincing acute process.. Consider follow-up with PA and lateral chest for persistent symptoms. 3. Pleura: No convincing significant effusion. No significant pneumothorax. 4. Heart and mediastinum: No convincing acute process. 5. Upper abdomen: No acute process seen. 6. Thorax:No acute bony process Report Dictated on Electronically Signed By: Fidel Navas MD Electronically Signed Date/Time: 12/22/2024 1:25 PM EDT [facility] Radiology Study observation (narrative) [facility] XR Chest Single viewOrdered By: Fidel Navas on 12-22-2024 [facility] [employer] [email or web address] Work Phone: XR Hip - left 3 Viewson 1. Irregular soft tissue heterogeneity and subcutaneous emphysema projecting of the left thigh soft tissues. Patient was noted to have an abscess in this region on prior CT. Consider follow-up cross-sectional imaging. 2. No acute osseous abnormality identified. Report Dictated on Electronically Signed By: Jamison Covarrubias MD Electronically Signed Date/Time: 12/22/2024 1:33 PM EDT [employer] [facility] Name[facility] KEVAN LA [facility] 1975 [id number] Exam Date/Time: 12/22/2024 13:20 Procedure: XR HIP 2 OR 3 VW LEFT Ordering Provider: LEON NICOLE Reason For Exam: evaluate for free air EXAMINATION: XR left hip. EXAM DATE & TIME: 12/22/2024 1:20 PM EDT INDICATION: evaluate for free air ADDITIONAL INFORMATION: 49-year-old male with left hip pain presents for evaluation COMPARISON: CT pelvis dated 12/06/2024 TECHNIQUE: AP and frog-leg lateral views of the left hip were obtained. FINDINGS: No acute fracture or traumatic dislocation is identified. There are mild degenerative changes of the hips. Bones are osteopenic. Dense stool, possibly mixed with contrast projects over the pelvis. Irregular soft tissue heterogeneity and subcutaneous emphysema is present involving the left thigh soft tissues. [employer] [facility] Jamison Covarrubias MD - 12/22/2024 Patient Name: KEVAN LA : 1975 Exam Date/Time: 12/22/2024 13:20 Procedure: XR HIP 2 OR 3 VW LEFT Ordering Provider: LEON NICOLE Reason For Exam: evaluate for free air EXAMINATION: XR left hip. EXAM DATE & TIME: 12/22/2024 1:20 PM EDT INDICATION: evaluate for free air ADDITIONAL INFORMATION: 49-year-old male with left hip pain presents for evaluation COMPARISON: CT pelvis dated 12/06/2024 TECHNIQUE: AP and frog-leg lateral views of the left hip were obtained. FINDINGS: No acute fracture or traumatic dislocation is identified. There are mild degenerative changes of the hips. Bones are osteopenic. Dense stool, possibly mixed with contrast projects over the pelvis. Irregular soft tissue heterogeneity and subcutaneous emphysema is present involving the left thigh soft tissues. IMPRESSION: 1. Irregular soft tissue heterogeneity and subcutaneous emphysema projecting of the left thigh soft tissues. Patient was noted to have an abscess in this region on prior CT. Consider follow-up cross-sectional imaging. 2. No acute osseous abnormality identified. Report Dictated on Electronically Signed By: Jamison Covarrubias MD Electronically Signed Date/Time: 12/22/2024 1:33 PM EDT [facility] Radiology Study observation (narrative) [facility] XR Hip - left 3 ViewsOrdered By: Jamison Covarrubias on 12-22-2024 [facility] [email or web address] Work Phone: CBC W Auto Differential pane l (Bld)on 12-19-2024 Basophils (Bld) [#/Vol] 0.05 10*3/uL [facility] Basophils/100 WBC (Bld) 0.3 % 0.0 - 2.0 % [facility] Eosinophils (Bld) [#/Vol] 0.4 10*3/uL [facility] Eosinophils/100 WBC (Bld) 2.7 % 0.0 - 6.0 % [facility] Erythrocyte distribution width (RBC) [Ratio] 17.4 % High 11.5 - 14.5 % [facility] Hematocrit (Bld) [Volume fraction] 27.2 % Low 41.0 - 52.0 % [facility] Hemoglobin (Bld) [Mass/Vol] 8.2 g/dL Low 13.5 - 17.5 g/dL [facility] Immature granulocytes (Bld) [#/Vol] 0.07 10*3/uL [facility] Immature granulocytes/100 WBC (Bld) 0.5 % 0.0 - 0.9 % [facility] Interpretation and review of laboratory results Abnormal [facility] Lymphocytes (Bld) [#/Vol] 1.9 10*3/uL [facility] Lymphocytes/100 WBC (Bld) 12.7 % 13.0 - 44.0 % [facility] MCH (RBC) [Entitic mass] 25.7 pg Low 26. 0 - 34.[address] [facility] MCHC (RBC) [Mass/Vol] 30.1 g/dL Low 32.0 - 36.0 g/dL [facility] MCV (RBC) [Entitic vol] 85 fL 80 - [address] [facility] Monocytes (Bld) [#/Vol] 1.38 10*3/uL High [facility] Monocytes/100 WBC (Bld) 9.2 % 2.0 - 10.0 % [facility] Neutrophils (Bld) [#/Vol] 11.2 10*3/uL High [facility] Neutrophils/100 WBC (Bld) 74.6 % 40.0 - 80.0 % [facility] Nucleated RBC/100 WBC (Bld) [Ratio] 0 % [facility] Platelets (Bld) [#/Vol] 699 10*3/uL High [facility] RBC (Bld) [#/Vol] 3.19 10*6/uL Low [facility] WBC (Bld) [#/Vol] 15 10*3/uL [facility] Magnesiumon 12-19-2024 Magnesium [Mass/Vol] 2.08 mg/dL 1.60 - 2.40 mg/dL [facility] Magnesium [Mass/Vol]on 12-19 Interpretation and review of laboratory results Normal [facility] No Panel Informationon 12-19 [facility] Renal function 2000 panelon 12-19-2024 Albumin BCP dye [Mass/Vol] 3.1 g/dL Low 3.4 - 5.0 g/dL [facility] Anion gap [Moles/Vol] 11 mmol/L 10 - 2 0 mmol/L [facility] Calcium [Mass/Vol] 10.9 mg/dL High 8.6 - 10. 6 mg/dL [facility] Chloride [Moles/Vol] 99 mmol/L 98 - 10 7 mmol/L [facility] CO2 [Moles/Vol] 31 mmol/L 21 - 32 mmol/L [facility] Creatinine [Mass/Vol] 1.14 mg/dL 0.50 - 1.30 mg/dL [facility] GFR/1.73 sq M.predicted among non-blacks MDRD (S/P/Bld) [Vol rate/Area] 78 mL/min/{1.73_m2} - PINF [facility] Glucose [Mass/Vol] 102 mg/dL High 74 - 99 mg/dL [facility] Interpretation and review of laboratory results Abnormal [facility] Phosphate [Mass/Vol] 2.7 mg/dL 2.5 - 4 .9 mg/dL [facility] Potassium [Moles/Vol] 4.9 mmol/L 3.5 - 5.3 mmol/L [facility] Sodium [Moles/Vol] 136 mmol/L 136 - 145 mmol/L [facility] Urea nitrogen [Mass/Vol] 13 mg/dL 6 - 23 mg/d L [facility] CBC W Auto Differential pane l (Bld)on 12-18-2024 Basophils (Bld) [#/Vol] 0.07 10*3/uL [facility] Basophils/100 WBC (Bld) 0.5 % 0.0 - 2.0 % [facility] Eosinophils (Bld) [#/Vol] 0.63 10*3/uL [facility] Eosinophils/100 WBC (Bld) 4.8 % 0.0 - 6.0 % [facility] Erythrocyte distribution width (RBC) [Ratio] 17.3 % High 11.5 - 14.5 % [facility] Hematocrit (Bld) [Volume fraction] 28.5 % Low 41.0 - 52.0 % [facility] Hemoglobin (Bld) [Mass/Vol] 8.5 g/dL Low 13.5 - 17.5 g/dL [facility] Immature granulocytes (Bld) [#/Vol] 0.06 10*3/uL [facility] Immature granulocytes/100 WBC (Bld) 0.5 % 0.0 - 0.9 % [facility] Interpretation and review of laboratory results Abnormal [facility] Lymphocytes (Bld) [#/Vol] 2.06 10*3/uL [facility] Lymphocytes/100 WBC (Bld) 15.6 % 13.0 - 44.0 % [facility] MCH (RBC) [Entitic mass] 25.1 pg Low 26. 0 - 34.[address] [facility] MCHC (RBC) [Mass/Vol] 29.8 g/dL Low 32.0 - 36.0 g/dL [facility] MCV (RBC) [Entitic vol] 84 fL 80 - [address] [facility] Monocytes (Bld) [#/Vol] 1.3 10*3/uL High [facility] Monocytes/100 WBC (Bld) 9.8 % 2.0 - 10.0 % [facility] Neutrophils (Bld) [#/Vol] 9.09 10*3/uL [facility] Neutrophils/100 WBC (Bld) 68.8 % 40.0 - 80.0 % [facility] Nucleated RBC/100 WBC (Bld) [Ratio] 0 % [facility] Platelets (Bld) [#/Vol] 705 10*3/uL High [facility] RBC (Bld) [#/Vol] 3.38 10*6/uL Low [facility] WBC (Bld) [#/Vol] 13.2 10*3/uL High [facility] ECG 12 LeadOrdered By: Yamilet Villa on 12-18-2024 Atrial Rate [address] [facility] Work Phone: P [place] [address] [facility] Work Phone: P Offset [address] [facility] Work Phone: [phone] P Onset [address] [facility] Work Phone: [phone] IN Interval [address] [facility] Work Phone: [phone] Q Onset [address] [facility] Work Phone: [phone] QRS [address] [facility] Work Phone: [phone] QRS Duration [address] [facility] Work Phone: [phone] QT Interval [address] [facility] Work Phone: [phone] QTC Calculation(Bazett) 418 ms U [facility] Work Phone: [phone] QTC [place] [facility] Work Phone: [phone] R [place] [address] [facility] Work Phone: T [place] [address] [facility] Work Phone: [phone] Offset [address] [facility] Work Phone: Ventricular Rate 72 BPM [facility] Work Phone: [facility] Work Phone: ECG 12 Leadon 12-18-2024 [facility] Work Phone: CBC W Auto Differential pane l (Bld)on 12-17-2024 Basophils (Bld) [#/Vol] 0.09 10*3/uL [facility] Basophils/100 WBC (Bld) 0.7 % 0.0 - 2.0 % [facility] Eosinophils (Bld) [#/Vol] 0.65 10*3/uL [facility] Eosinophils/100 WBC (Bld) 4.9 % 0.0 - 6.0 % [facility] Erythrocyte distribution width (RBC) [Ratio] 17.4 % High 11.5 - 14.5 % [facility] Hematocrit (Bld) [Volume fraction] 29 % Low 41.0 - 52.0 % [facility] Hemoglobin (Bld) [Mass/Vol] 8.5 g/dL Low 13.5 - 17.5 g/dL [facility] Immature granulocytes (Bld) [#/Vol] 0.06 10*3/uL [facility] Immature granulocytes/100 WBC (Bld) 0.4 % 0.0 - 0.9 % [facility] Interpretation and review of laboratory results Abnormal [facility] Lymphocytes (Bld) [#/Vol] 2.18 10*3/uL [facility] Lymphocytes/100 WBC (Bld) 16.3 % 13.0 - 44.0 % [facility] MCH (RBC) [Entitic mass] 25.1 pg Low 26. 0 - 34.[address] [facility] MCHC (RBC) [Mass/Vol] 29.3 g/dL Low 32.0 - 36.0 g/dL [facility] MCV (RBC) [Entitic vol] 86 fL 80 - [address] [facility] Monocytes (Bld) [#/Vol] 1.22 10*3/uL High [facility] Monocytes/100 WBC (Bld) 9.1 % 2.0 - 10.0 % [facility] Neutrophils (Bld) [#/Vol] 9.17 10*3/uL High [facility] Neutrophils/100 WBC (Bld) 68.6 % 40.0 - 80.0 % [facility] Nucleated RBC/100 WBC (Bld) [Ratio] 0 % [facility] Platelets (Bld) [#/Vol] 754 10*3/uL High [facility] RBC (Bld) [#/Vol] 3.38 10*6/uL Low [facility] WBC (Bld) [#/Vol] 13.4 10*3/uL High [facility] Magnesiumon 12-17-2024 Magnesium [Mass/Vol] 1.94 mg/dL 1.60 - 2.40 mg/dL [facility] Magnesium [Mass/Vol]on 12-17 Interpretation and review of laboratory results Normal [facility] No Panel Informationon 12-17 [facility] Renal function 2000 panelon 12-17-2024 Albumin BCP dye [Mass/Vol] 3.3 g/dL Low 3.4 - 5.0 g/dL [facility] Anion gap [Moles/Vol] 12 mmol/L 10 - 2 0 mmol/L [facility] Calcium [Mass/Vol] 11.3 mg/dL High 8.6 - 10. 6 mg/dL [facility] Chloride [Moles/Vol] 99 mmol/L 98 - 10 7 mmol/L [facility] CO2 [Moles/Vol] 30 mmol/L 21 - 32 mmol/L [facility] Creatinine [Mass/Vol] 1.18 mg/dL 0.50 - 1.30 mg/dL [facility] GFR/1.73 sq M.predicted among non-blacks MDRD (S/P/Bld) [Vol rate/Area] 75 mL/min/{1.73_m2} - PINF [facility] Glucose [Mass/Vol] 92 mg/dL 74 - 99 mg/[facility] Interpretation and review of laboratory results Abnormal [facility] Phosphate [Mass/Vol] 2.6 mg/dL 2.5 - 4 .9 mg/dL [facility] Potassium [Moles/Vol] 4.1 mmol/L 3.5 - 5.3 mmol/L [facility] Sodium [Moles/Vol] 137 mmol/L 136 - 145 mmol/L [facility] Urea nitrogen [Mass/Vol] 14 mg/dL 6 - 23 mg/d L [facility] CBC W Auto Differential pane l (Bld)on 12-16-2024 Basophils (Bld) [#/Vol] 0.07 10*3/uL [facility] Basophils/100 WBC (Bld) 0.5 % 0.0 - 2.0 % [facility] Eosinophils (Bld) [#/Vol] 0.72 10*3/uL High [facility] Eosinophils/100 WBC (Bld) 5.6 % 0.0 - 6.0 % [facility] Erythrocyte distribution width (RBC) [Ratio] 17.3 % High 11.5 - 14.5 % [facility] Hematocrit (Bld) [Volume fraction] 27.8 % Low 41.0 - 52.0 % [facility] Hemoglobin (Bld) [Mass/Vol] 8.3 g/dL Low 13.5 - 17.5 g/dL [facility] Immature granulocytes (Bld) [#/Vol] 0.07 10*3/uL [facility] Immature granulocytes/100 WBC (Bld) 0.5 % 0.0 - 0.9 % [facility] Interpretation and review of laboratory results Abnormal [facility] Lymphocytes (Bld) [#/Vol] 2.28 10*3/uL [facility] Lymphocytes/100 WBC (Bld) 17.9 % 13.0 - 44.0 % [facility] MCH (RBC) [Entitic mass] 25.3 pg Low 26. 0 - 34.[address] [facility] MCHC (RBC) [Mass/Vol] 29.9 g/dL Low 32.0 - 36.0 g/dL [facility] MCV (RBC) [Entitic vol] 85 fL 80 - [address] [facility] Monocytes (Bld) [#/Vol] 1.31 10*3/uL High [facility] Monocytes/100 WBC (Bld) 10.3 % 2.0 - 10.0 % [facility] Neutrophils (Bld) [#/Vol] 8.31 10*3/uL [facility] Neutrophils/100 WBC (Bld) 65.2 % 40.0 - 80.0 % [facility] Nucleated RBC/100 WBC (Bld) [Ratio] 0 % [facility] Platelets (Bld) [#/Vol] 660 10*3/uL High [facility] RBC (Bld) [#/Vol] 3.28 10*6/uL Low [facility] WBC (Bld) [#/Vol] 12.8 10*3/uL [facility] RF videography Hypopharynx a nd Esophagus Views for swallowing function W speech and W barium contrast Veronica 12-16-[address] [facility] [address] [facility] Work Phone: Radiology Study observation (narrative) [facility] Work Phone: RF videography Hypopharynx a nd Esophagus Views for swallowing function W speech and W barium contrast POOrdered By: Jayson Abdi on 12-16-2024 [facility] Work Phone: [employer] Modified Barium Swallow Evaluationon 12-16-2024 [facility] Work Phone: CBC W Auto Differential pane l (Bld)Ordered By: Ronna Bergeron on 12-15-2024 Basophils (Bld) [#/Vol] 0.06 10*3/uL [facility] Basophils/100 WBC (Bld) 0.4 % 0.0 - 2.0 % [facility] Eosinophils (Bld) [#/Vol] 0.69 10*3/uL [facility] Eosinophils/100 WBC (Bld) 4.9 % 0.0 - 6.0 % [facility] Erythrocyte distribution width (RBC) [Ratio] 17.3 % High 11.5 - 14.5 % [facility] Hematocrit (Bld) [Volume fraction] 27.6 % Low 41.0 - 52.0 % [facility] Hemoglobin (Bld) [Mass/Vol] 8.5 g/dL Low 13.5 - 17.5 g/dL [facility] Immature granulocytes (Bld) [#/Vol] 0.06 10*3/uL [facility] Immature granulocytes/100 WBC (Bld) 0.4 % 0.0 - 0.9 % [facility] Interpretation and review of laboratory results Abnormal [facility] Lymphocytes (Bld) [#/Vol] 2.15 10*3/uL [facility] Lymphocytes/100 WBC (Bld) 15.4 % 13.0 - 44.0 % [facility] MCH (RBC) [Entitic mass] 26 pg 26. 0 - 34.[address] [facility] MCHC (RBC) [Mass/Vol] 30.8 g/dL Low 32.0 - 36.0 g/dL [facility] MCV (RBC) [Entitic vol] 84 fL 80 - [address] [facility] Monocytes (Bld) [#/Vol] 1.49 10*3/uL High [facility] Monocytes/100 WBC (Bld) 10.7 % 2.0 - 10.0 % [facility] Neutrophils (Bld) [#/Vol] 9.49 10*3/uL [facility] Neutrophils/100 WBC (Bld) 68.2 % 40.0 - 80.0 % [facility] Nucleated RBC/100 WBC (Bld) [Ratio] 0 % [facility] Platelets (Bld) [#/Vol] 696 10*3/uL High [facility] RBC (Bld) [#/Vol] 3.27 10*6/uL Low [facility] WBC (Bld) [#/Vol] 13.9 10*3/uL [facility] Comprehensive metabolic 2000 panelOrdered By: Eitan Calvo on 12-15-2024 Albumin BCP dye [Mass/Vol] 3.1 g/dL Low 3.4 - 5.0 g/dL [facility] ALP [Catalytic activity/Vol] 65 U/L 33 - 120 U/L [facility] ALT With P-5'-P [Catalytic activity/Vol] 16 U/L 10 - 52 U/L [facility] Anion gap [Moles/Vol] 15 mmol/L 10 - 2 0 mmol/L [facility] AST With P-5'-P [Catalytic activity/Vol] 17 U/L 9 - 39 U/L [facility] Bilirubin [Mass/Vol] 0.2 mg/dL 0.0 - 1 .2 mg/dL [facility] Calcium [Mass/Vol] 10.6 mg/dL 8.6 - 10. 6 mg/dL [facility] Chloride [Moles/Vol] 100 mmol/L 98 - 10 7 mmol/L [facility] CO2 [Moles/Vol] 28 mmol/L 21 - 32 mmol/L [facility] Creatinine [Mass/Vol] 1.12 mg/dL 0.50 - 1.30 mg/dL [facility] GFR/1.73 sq M.predicted among non-blacks MDRD (S/P/Bld) [Vol rate/Area] 80 mL/min/{1.73_m2} - PINF [facility] Glucose [Mass/Vol] 107 mg/dL High 74 - 99 mg/dL [facility] Interpretation and review of laboratory results Abnormal [facility] Potassium [Moles/Vol] 4.6 mmol/L 3.5 - 5.3 mmol/L [facility] Protein [Mass/Vol] 7.2 g/dL 6.4 - 8.2 g/dL [facility] Sodium [Moles/Vol] 138 mmol/L 136 - 145 mmol/L [facility] Urea nitrogen [Mass/Vol] 12 mg/dL 6 - 23 mg/d L [facility] CBC W Auto Differential pane l (Bld)on 12-14-2024 Basophils (Bld) [#/Vol] 0.07 10*3/uL [facility] Basophils/100 WBC (Bld) 0.6 % 0.0 - 2.0 % [facility] Eosinophils (Bld) [#/Vol] 0.67 10*3/uL [facility] Eosinophils/100 WBC (Bld) 5.9 % 0.0 - 6.0 % [facility] Erythrocyte distribution width (RBC) [Ratio] 17.2 % High 11.5 - 14.5 % [facility] Hematocrit (Bld) [Volume fraction] 27.8 % Low 41.0 - 52.0 % [facility] Hemoglobin (Bld) [Mass/Vol] 8.1 g/dL Low 13.5 - 17.5 g/dL [facility] Immature granulocytes (Bld) [#/Vol] 0.05 10*3/uL [facility] Immature granulocytes/100 WBC (Bld) 0.4 % 0.0 - 0.9 % [facility] Interpretation and review of laboratory results Abnormal [facility] Lymphocytes (Bld) [#/Vol] 2.33 10*3/uL [facility] Lymphocytes/100 WBC (Bld) 20.5 % 13.0 - 44.0 % [facility] MCH (RBC) [Entitic mass] 25.2 pg Low 26. 0 - 34.[address] [facility] MCHC (RBC) [Mass/Vol] 29.1 g/dL Low 32.0 - 36.0 g/dL [facility] MCV (RBC) [Entitic vol] 86 fL 80 - [address] [facility] Monocytes (Bld) [#/Vol] 1.21 10*3/uL High [facility] Monocytes/100 WBC (Bld) 10.6 % 2.0 - 10.0 % [facility] Neutrophils (Bld) [#/Vol] 7.04 10*3/uL [facility] Neutrophils/100 WBC (Bld) 62 % 40.0 - 80.0 % [facility] Nucleated RBC/100 WBC (Bld) [Ratio] 0 % [facility] Platelets (Bld) [#/Vol] 699 10*3/uL High [facility] RBC (Bld) [#/Vol] 3.22 10*6/uL Low [facility] WBC (Bld) [#/Vol] 11.4 10*3/uL [facility] W Auto Differential pane l (Bld)on 12-13-2024 Basophils (Bld) [#/Vol] 0.05 10*3/uL [facility] Basophils/100 WBC (Bld) 0.5 % 0.0 - 2.0 % [facility] Eosinophils (Bld) [#/Vol] 0.11 10*3/uL [facility] Eosinophils/100 WBC (Bld) 1 % 0.0 - 6.0 % [facility] Erythrocyte distribution width (RBC) [Ratio] 16.8 % High 11.5 - 14.5 % [facility] Hematocrit (Bld) [Volume fraction] 25.4 % Low 41.0 - 52.0 % [facility] Hemoglobin (Bld) [Mass/Vol] 7.6 g/dL Low 13.5 - 17.5 g/dL [facility] Immature granulocytes (Bld) [#/Vol] 0.05 10*3/uL [facility] Immature granulocytes/100 WBC (Bld) 0.5 % 0.0 - 0.9 % [facility] Interpretation and review of laboratory results Abnormal [facility] Lymphocytes (Bld) [#/Vol] 1.74 10*3/uL [facility] Lymphocytes/100 WBC (Bld) 15.7 % 13.0 - 44.0 % [facility] MCH (RBC) [Entitic mass] 25.2 pg Low 26. 0 - 34.[address] [facility] MCHC (RBC) [Mass/Vol] 29.9 g/dL Low 32.0 - 36.0 g/dL [facility] MCV (RBC) [Entitic vol] 84 fL 80 - [address] [facility] Monocytes (Bld) [#/Vol] 1.2 10*3/uL High [facility] Monocytes/100 WBC (Bld) 10.8 % 2.0 - 10.0 % [facility] Neutrophils (Bld) [#/Vol] 7.92 10*3/uL High [facility] Neutrophils/100 WBC (Bld) 71.5 % 40.0 - 80.0 % [facility] Nucleated RBC/100 WBC (Bld) [Ratio] 0 % [facility] Platelets (Bld) [#/Vol] 663 10*3/uL High [facility] RBC (Bld) [#/Vol] 3.01 10*6/uL Low [facility] WBC (Bld) [#/Vol] 11.1 10*3/uL [facility] Magnesiumon 12-13-2024 Magnesium [Mass/Vol] 1.97 mg/dL 1.60 - 2.40 mg/dL [facility] Magnesium [Mass/Vol]on 12-13 Interpretation and review of laboratory results Normal [facility] No Panel Informationon 12-13 [facility] Renal function 2000 panelon 12-13-2024 Albumin BCP dye [Mass/Vol] 3.1 g/dL Low 3.4 - 5.0 g/dL [facility] Anion gap [Moles/Vol] 12 mmol/L 10 - 2 0 mmol/L [facility] Calcium [Mass/Vol] 10.1 mg/dL 8.6 - 10. 6 mg/dL [facility] Chloride [Moles/Vol] 102 mmol/L 98 - 10 7 mmol/L [facility] CO2 [Moles/Vol] 29 mmol/L 21 - 32 mmol/L [facility] Creatinine [Mass/Vol] 1.01 mg/dL 0.50 - 1.30 mg/dL [facility] GFR/1.73 sq M.predicted among non-blacks MDRD (S/P/Bld) [Vol rate/Area] 90 mL/min/{1.73_m2} - PINF [facility] Glucose [Mass/Vol] 126 mg/dL High 74 - 99 mg/dL [facility] Interpretation and review of laboratory results Abnormal [facility] Phosphate [Mass/Vol] 2.2 mg/dL Low 2.5 - 4 .9 mg/dL [facility] Potassium [Moles/Vol] 4.1 mmol/L 3.5 - 5.3 mmol/L [facility] Sodium [Moles/Vol] 139 mmol/L 136 - 145 mmol/L [facility] Urea nitrogen [Mass/Vol] 15 mg/dL 6 - 23 mg/d L [facility] CBC W Auto Differential pane l (Bld)on 12-12-2024 Basophils (Bld) [#/Vol] 0.06 10*3/uL [facility] Basophils/100 WBC (Bld) 0.5 % 0.0 - 2.0 % [facility] Eosinophils (Bld) [#/Vol] 0.66 10*3/uL [facility] Eosinophils/100 WBC (Bld) 5.1 % 0.0 - 6.0 % [facility] Erythrocyte distribution width (RBC) [Ratio] 16.7 % High 11.5 - 14.5 % [facility] Hematocrit (Bld) [Volume fraction] 26.5 % Low 41.0 - 52.0 % [facility] Hemoglobin (Bld) [Mass/Vol] 8.1 g/dL Low 13.5 - 17.5 g/dL [facility] Immature granulocytes (Bld) [#/Vol] 0.05 10*3/uL [facility] Immature granulocytes/100 WBC (Bld) 0.4 % 0.0 - 0.9 % [facility] Interpretation and review of laboratory results Abnormal [facility] Lymphocytes (Bld) [#/Vol] 1.86 10*3/uL [facility] Lymphocytes/100 WBC (Bld) 14.4 % 13.0 - 44.0 % [facility] MCH (RBC) [Entitic mass] 26 pg 26. 0 - 34.[address] [facility] MCHC (RBC) [Mass/Vol] 30.6 g/dL Low 32.0 - 36.0 g/dL [facility] MCV (RBC) [Entitic vol] 85 fL 80 - [address] [facility] Monocytes (Bld) [#/Vol] 1.35 10*3/uL High [facility] Monocytes/100 WBC (Bld) 10.4 % 2.0 - 10.0 % [facility] Neutrophils (Bld) [#/Vol] 8.98 10*3/uL High [facility] Neutrophils/100 WBC (Bld) 69.2 % 40.0 - 80.0 % [facility] Nucleated RBC/100 WBC (Bld) [Ratio] 0 % [facility] Platelets (Bld) [#/Vol] 630 10*3/uL High [facility] RBC (Bld) [#/Vol] 3.11 10*6/uL Low [facility] WBC (Bld) [#/Vol] 13 10*3/uL High [facility] ECG 12-LEADon 12-12-2024 ECG 12-LEAD Ventricular Rate 72 Atrial Rate 72 P-R Interval 154 QRS Duration 92 Q-T Interval 382 QTC Calculation(Bazett) 418 P [place] 58 R [place] 55 T [place] 43 QRS Count 12 Q Onset 218 P Onset 141 P Offset 180 T Offset 409 QTC Fredericia 406 Diagnosis Normal sinus rhythm Normal ECG When compared with ECG of 12-DEC-2024 12:27, (unconfirmed) No significant change was found Confirmed by Bobby Villa ([id number]) on 12/18/2024 5:50:09 PM Normal [facility] Hepatic function 2000 panelo n 12-12-2024 Albumin BCP dye [Mass/Vol] 2.9 g/dL Low 3.4 - 5.0 g/dL [facility] ALP [Catalytic activity/Vol] 56 U/L 33 - 120 U/L [facility] ALT With P-5'-P [Catalytic activity/Vol] 7 U/L Low 10 - 52 U/L [facility] AST With P-5'-P [Catalytic activity/Vol] 6 U/L Low 9 - 39 U/L [facility] Bilirubin [Mass/Vol] 0.2 mg/dL 0.0 - 1 .2 mg/dL [facility] Bilirubin.direct [Mass/Vol] 0.1 mg/dL 0.0 - 0.3 mg/dL [facility] Interpretation and review of laboratory results Abnormal [facility] Protein [Mass/Vol] 6.9 g/dL 6.4 - 8.2 g/dL [facility] MR Thigh - left WO and W con trast Mp 12-12-[address] [facility] Work Phone: [facility] Work Phone: Radiology Study observation (narrative) [facility] Work Phone: MR Thigh - left WO contrasto n 12-12-[address] [facility] [address] [facility] Work Phone: MR Thigh - left WO contrastO rdered By: Kong Armijo on 12-12-2024 [facility] Work Phone: Magnesiumon 12-12-2024 Magnesium [Mass/Vol] 2.01 mg/dL 1.60 - 2.40 mg/dL [facility] Magnesium [Mass/Vol]on 12-12 Interpretation and review of laboratory results Normal [facility] No Panel Informationon 12-12 [facility] Renal function 2000 panelon 12-12-2024 Albumin BCP dye [Mass/Vol] 3 g/dL Low 3.4 - 5.0 g/dL [facility] Anion gap [Moles/Vol] 11 mmol/L 10 - 2 0 mmol/L [facility] Calcium [Mass/Vol] 11.1 mg/dL High 8.6 - 10. 6 mg/dL [facility] Chloride [Moles/Vol] 103 mmol/L 98 - 10 7 mmol/L [facility] CO2 [Moles/Vol] 30 mmol/L 21 - 32 mmol/L [facility] Creatinine [Mass/Vol] 1.15 mg/dL 0.50 - 1.30 mg/dL [facility] GFR/1.73 sq M.predicted among non-blacks MDRD (S/P/Bld) [Vol rate/Area] 77 mL/min/{1.73_m2} - PINF [facility] Glucose [Mass/Vol] 102 mg/dL High 74 - 99 mg/dL [facility] Interpretation and review of laboratory results Abnormal [facility] Phosphate [Mass/Vol] 2.9 mg/dL 2.5 - 4 .9 mg/dL [facility] Potassium [Moles/Vol] 4.7 mmol/L 3.5 - 5.3 mmol/L [facility] Sodium [Moles/Vol] 139 mmol/L 136 - 145 mmol/L [facility] Urea nitrogen [Mass/Vol] 14 mg/dL 6 - 23 mg/d L [facility] Bacteria identified Cx Nom ( Bld)on 12-11-2024 Interpretation and review of laboratory results Normal [facility] CBC W Auto Differential pane l (Bld)on 12-11-2024 Basophils (Bld) [#/Vol] 0.06 10*3/uL [facility] Basophils/100 WBC (Bld) 0.5 % 0.0 - 2.0 % [facility] Eosinophils (Bld) [#/Vol] 0.43 10*3/uL [facility] Eosinophils/100 WBC (Bld) 3.7 % 0.0 - 6.0 % [facility] Erythrocyte distribution width (RBC) [Ratio] 16.7 % High 11.5 - 14.5 % [facility] Hematocrit (Bld) [Volume fraction] 27.1 % Low 41.0 - 52.0 % [facility] Hemoglobin (Bld) [Mass/Vol] 8.1 g/dL Low 13.5 - 17.5 g/dL [facility] Immature granulocytes (Bld) [#/Vol] 0.05 10*3/uL [facility] Immature granulocytes/100 WBC (Bld) 0.4 % 0.0 - 0.9 % [facility] Interpretation and review of laboratory results Abnormal [facility] Lymphocytes (Bld) [#/Vol] 1.57 10*3/uL [facility] Lymphocytes/100 WBC (Bld) 13.6 % 13.0 - 44.0 % [facility] MCH (RBC) [Entitic mass] 25.5 pg Low 26. 0 - 34.[address] [facility] MCHC (RBC) [Mass/Vol] 29.9 g/dL Low 32.0 - 36.0 g/dL [facility] MCV (RBC) [Entitic vol] 85 fL 80 - [address] [facility] Monocytes (Bld) [#/Vol] 1.8 10*3/uL High [facility] Monocytes/100 WBC (Bld) 15.6 % 2.0 - 10.0 % [facility] Neutrophils (Bld) [#/Vol] 7.64 10*3/uL [facility] Neutrophils/100 WBC (Bld) 66.2 % 40.0 - 80.0 % [facility] Nucleated RBC/100 WBC (Bld) [Ratio] 0 % [facility] Platelets (Bld) [#/Vol] 649 10*3/uL High [facility] RBC (Bld) [#/Vol] 3.18 10*6/uL Low [facility] WBC (Bld) [#/Vol] 11.6 10*3/uL High [facility] - Microbiology an d Antimicrobial susceptibilityon 12-11-2024 Bacteria identified Cx Nom (Bld) No growth at 4 days - FINAL REPORT [facility] Magnesiumon 12-11-2024 Magnesium [Mass/Vol] 1.96 mg/dL 1.60 - 2.40 mg/dL [facility] Magnesium [Mass/Vol]on 12-11 Interpretation and review of laboratory results Normal [facility] No Panel Informationon 12-11 [facility] Renal function 2000 panelon 12-11-2024 Albumin BCP dye [Mass/Vol] 2.9 g/dL Low 3.4 - 5.0 g/dL [facility] Anion gap [Moles/Vol] 9 mmol/L Low 10 - 2 0 mmol/L [facility] Calcium [Mass/Vol] 10.4 mg/dL 8.6 - 10. 6 mg/dL [facility] Chloride [Moles/Vol] 101 mmol/L 98 - 10 7 mmol/L [facility] CO2 [Moles/Vol] 29 mmol/L 21 - 32 mmol/L [facility] Creatinine [Mass/Vol] 1.34 mg/dL High 0.50 - 1.30 mg/dL [facility] GFR/1.73 sq M.predicted among non-blacks MDRD (S/P/Bld) [Vol rate/Area] 64 mL/min/{1.73_m2} - PINF [facility] Glucose [Mass/Vol] 99 mg/dL 74 - 99 mg/[facility] Interpretation and review of laboratory results Abnormal [facility] Phosphate [Mass/Vol] 3 mg/dL 2.5 - 4 .9 mg/dL [facility] Potassium [Moles/Vol] 4.3 mmol/L 3.5 - 5.3 mmol/L [facility] Sodium [Moles/Vol] 135 mmol/L Low 136 - 145 mmol/L [facility] Urea nitrogen [Mass/Vol] 13 mg/dL 6 - 23 mg/d L [facility] CBC W Auto Differential pane l (Bld)on 12-10-2024 Basophils (Bld) [#/Vol] 0.07 10*3/uL [facility] Basophils/100 WBC (Bld) 0.6 % 0.0 - 2.0 % [facility] Eosinophils (Bld) [#/Vol] 0.52 10*3/uL [facility] Eosinophils/100 WBC (Bld) 4.5 % 0.0 - 6.0 % [facility] Erythrocyte distribution width (RBC) [Ratio] 16.8 % High 11.5 - 14.5 % [facility] Hematocrit (Bld) [Volume fraction] 26.7 % Low 41.0 - 52.0 % [facility] Hemoglobin (Bld) [Mass/Vol] 8.1 g/dL Low 13.5 - 17.5 g/dL [facility] Immature granulocytes (Bld) [#/Vol] 0.04 10*3/uL [facility] Immature granulocytes/100 WBC (Bld) 0.3 % 0.0 - 0.9 % [facility] Interpretation and review of laboratory results Abnormal [facility] Lymphocytes (Bld) [#/Vol] 1.84 10*3/uL [facility] Lymphocytes/100 WBC (Bld) 16.1 % 13.0 - 44.0 % [facility] MCH (RBC) [Entitic mass] 25.8 pg Low 26. 0 - 34.[address] [facility] MCHC (RBC) [Mass/Vol] 30.3 g/dL Low 32.0 - 36.0 g/dL [facility] MCV (RBC) [Entitic vol] 85 fL 80 - [address] [facility] Monocytes (Bld) [#/Vol] 1.42 10*3/uL High [facility] Monocytes/100 WBC (Bld) 12.4 % 2.0 - 10.0 % [facility] Neutrophils (Bld) [#/Vol] 7.57 10*3/uL [facility] Neutrophils/100 WBC (Bld) 66.1 % 40.0 - 80.0 % [facility] Nucleated RBC/100 WBC (Bld) [Ratio] 0 % [facility] Platelets (Bld) [#/Vol] 663 10*3/uL High [facility] RBC (Bld) [#/Vol] 3.14 10*6/uL Low Unive [facility] WBC (Bld) [#/Vol] 11.5 10*3/uL High [facility] [place] - left WO contrasto n 12-10-2024 Radiology Study observation (narrative) [facility] Work Phone: Magnesiumon 12-10-2024 Magnesium [Mass/Vol] 1.9 mg/dL 1.60 - 2.40 mg/dL [facility] No Panel Informationon 12-10 Interpretation and review of laboratory results Normal [facility] Renal function 2000 panelon 12-10-2024 Albumin BCP dye [Mass/Vol] 3 g/dL Low 3.4 - 5.0 g/dL [facility] Anion gap [Moles/Vol] 12 mmol/L 10 - 2 0 mmol/L [facility] Calcium [Mass/Vol] 10.1 mg/dL 8.6 - 10. 6 mg/dL [facility] Chloride [Moles/Vol] 102 mmol/L 98 - 10 7 mmol/L [facility] CO2 [Moles/Vol] 29 mmol/L 21 - 32 mmol/L [facility] Creatinine [Mass/Vol] 1.28 mg/dL 0.50 - 1.30 mg/dL [facility] GFR/1.73 sq M.predicted among non-blacks MDRD (S/P/Bld) [Vol rate/Area] 68 mL/min/{1.73_m2} - PINF [facility] Glucose [Mass/Vol] 89 mg/dL 74 - 99 mg/[facility] Interpretation and review of laboratory results Abnormal [facility] Phosphate [Mass/Vol] 3.5 mg/dL 2.5 - 4 .9 mg/dL [facility] Potassium [Moles/Vol] 4.1 mmol/L 3.5 - 5.3 mmol/L [facility] Sodium [Moles/Vol] 139 mmol/L 136 - 145 mmol/L [facility] Urea nitrogen [Mass/Vol] 11 mg/dL 6 - 23 mg/d L [facility] Vancomycinon 12-10-2024 Vancomycin [Mass/Vol] 10.1 ug/mL 5.0 - 20.0 ug/mL [facility] Vancomycin [Mass/Vol]on 11-17 [facility] Bacteria identified Cx Nom ( Unsp spec)Ordered By: Mari Monique on 12-09-2024 Interpretation and review of laboratory results Abnormal [facility] Microscopic observation Gram stain Nom (Unsp spec) (2+) Few Polymorphonuclear leukocytes Abnormal [facility] Microscopic observation Gram stain Nom (Unsp spec) Positive Abnormal [facility] Blood type and Indirect anti body screen panel (Bld)on 12-09-2024 ABO group Nom (Bld) A [facility] antibody screen Ql Negative [facility] D Ag Ql (Bld) Positive [facility] CBC W Auto Differential pane l (Bld)on 12-09-2024 Basophils (Bld) [#/Vol] 0.06 10*3/uL [facility] Basophils/100 WBC (Bld) 0.6 % 0.0 - 2.0 % [facility] Eosinophils (Bld) [#/Vol] 0.49 10*3/uL [facility] Eosinophils/100 WBC (Bld) 4.8 % 0.0 - 6.0 % [facility] Erythrocyte distribution width (RBC) [Ratio] 16.4 % High 11.5 - 14.5 % [facility] Hematocrit (Bld) [Volume fraction] 25.6 % Low 41.0 - 52.0 % [facility] Hemoglobin (Bld) [Mass/Vol] 8.3 g/dL Low 13.5 - 17.5 g/dL [facility] Immature granulocytes (Bld) [#/Vol] 0.16 10*3/uL [facility] Immature granulocytes/100 WBC (Bld) 1.6 % High 0.0 - 0.9 % [facility] Interpretation and review of laboratory results Abnormal [facility] Lymphocytes (Bld) [#/Vol] 1.81 10*3/uL [facility] Lymphocytes/100 WBC (Bld) 17.8 % 13.0 - 44.0 % [facility] MCH (RBC) [Entitic mass] 26.2 pg 26. 0 - 34.[address] [facility] MCHC (RBC) [Mass/Vol] 32.4 g/dL 32.0 - 36.0 g/dL [facility] MCV (RBC) [Entitic vol] 81 fL 80 - [address] [facility] Monocytes (Bld) [#/Vol] 1.04 10*3/uL High [facility] Monocytes/100 WBC (Bld) 10.2 % 2.0 - 10.0 % [facility] Neutrophils (Bld) [#/Vol] 6.63 10*3/uL [facility] Neutrophils/100 WBC (Bld) 65 % 40.0 - 80.0 % [facility] Nucleated RBC/100 WBC (Bld) [Ratio] 0 % [facility] Platelets (Bld) [#/Vol] 650 10*3/uL High [facility] RBC (Bld) [#/Vol] 3.17 10*6/uL Low [facility] WBC (Bld) [#/Vol] 10.2 10*3/uL [facility] Magnesiumon 12-09-2024 Magnesium [Mass/Vol] 1.9 mg/dL 1.60 - 2.40 mg/dL [facility] Magnesium [Mass/Vol]on 12-09 Interpretation and review of laboratory results Normal [facility] No Panel Informationon 12-09 [facility] PT and aPTT panel Coag (PPP) on 12-09-2024 aPTT Coag (PPP) [Time] 26 s [facility] Coag (PPP) [Relative time] 1.3 {INR} High 0.9 - 1.1 [facility] Interpretation and review of laboratory results Abnormal [facility] PT Coag (PPP) [Time] 14.3 s High [facility] Renal function 2000 panelon 12-09-2024 Albumin BCP dye [Mass/Vol] 3.1 g/dL Low 3.4 - 5.0 g/dL [facility] Anion gap [Moles/Vol] 15 mmol/L 10 - 2 0 mmol/L [facility] Calcium [Mass/Vol] 9.8 mg/dL 8.6 - 10. 6 mg/dL [facility] Chloride [Moles/Vol] 104 mmol/L 98 - 10 7 mmol/L [facility] CO2 [Moles/Vol] 25 mmol/L 21 - 32 mmol/L [facility] Creatinine [Mass/Vol] 1.2 mg/dL 0.50 - 1.30 mg/dL [facility] GFR/1.73 sq M.predicted among non-blacks MDRD (S/P/Bld) [Vol rate/Area] 73 mL/min/{1.73_m2} - PINF [facility] Glucose [Mass/Vol] 92 mg/dL 74 - 99 mg/dL [facility] Interpretation and review of laboratory results Abnormal [facility] Phosphate [Mass/Vol] 3.4 mg/dL 2.5 - 4 .9 mg/dL [facility] Potassium [Moles/Vol] 3.6 mmol/L 3.5 - 5.3 mmol/L [facility] Sodium [Moles/Vol] 140 mmol/L 136 - 145 mmol/L [facility] Urea nitrogen [Mass/Vol] 15 mg/dL 6 - 23 mg/d L [facility] Tissue/Wound Culture/SmearOr dered By: Mari Monique on 12-09-2024 Bacteria identified Cx Nom (Unsp spec) (4+) Abundant Mixed Gram-Positive and Gram-Negative Bacteria [facility] CBC W Auto Differential pane l (Bld)on 12-08-2024 Basophils (Bld) [#/Vol] 0.05 10*3/uL [facility] Basophils/100 WBC (Bld) 0.4 % 0.0 - 2.0 % [facility] Eosinophils (Bld) [#/Vol] 0.55 10*3/uL [facility] Eosinophils/100 WBC (Bld) 4.8 % 0.0 - 6.0 % [facility] Erythrocyte distribution width (RBC) [Ratio] 17 % High 11.5 - 14.5 % [facility] Hematocrit (Bld) [Volume fraction] 26.1 % Low 41.0 - 52.0 % [facility] Hemoglobin (Bld) [Mass/Vol] 7.8 g/dL Low 13.5 - 17.5 g/dL [facility] Immature granulocytes (Bld) [#/Vol] 0.05 10*3/uL [facility] Immature granulocytes/100 WBC (Bld) 0.4 % 0.0 - 0.9 % [facility] Interpretation and review of laboratory results Abnormal [facility] Lymphocytes (Bld) [#/Vol] 1.34 10*3/uL [facility] Lymphocytes/100 WBC (Bld) 11.7 % 13.0 - 44.0 % [facility] MCH (RBC) [Entitic mass] 25.3 pg Low 26. 0 - 34.[address] [facility] MCHC (RBC) [Mass/Vol] 29.9 g/dL Low 32.0 - 36.0 g/dL [facility] MCV (RBC) [Entitic vol] 85 fL 80 - [address] [facility] Monocytes (Bld) [#/Vol] 1.36 10*3/uL High [facility] Monocytes/100 WBC (Bld) 11.9 % 2.0 - 10.0 % [facility] Neutrophils (Bld) [#/Vol] 8.1 10*3/uL High [facility] Neutrophils/100 WBC (Bld) 70.8 % 40.0 - 80.0 % [facility] Nucleated RBC/100 WBC (Bld) [Ratio] 0 % [facility] Platelets (Bld) [#/Vol] 595 10*3/uL High [facility] RBC (Bld) [#/Vol] 3.08 10*6/uL Low Unive [facility] WBC (Bld) [#/Vol] 11.5 10*3/uL High [facility] Comprehensive metabolic 2000 panelon 12-08-2024 Albumin BCP dye [Mass/Vol] 2.9 g/dL Low 3.4 - 5.0 g/dL [facility] ALP [Catalytic activity/Vol] 48 U/L 33 - 120 U/L [facility] ALT With P-5'-P [Catalytic activity/Vol] 6 U/L Low 10 - 52 U/L [facility] Anion gap [Moles/Vol] 12 mmol/L 10 - 2 0 mmol/L [facility] AST With P-5'-P [Catalytic activity/Vol] 6 U/L Low 9 - 39 U/L [facility] Bilirubin [Mass/Vol] 0.3 mg/dL 0.0 - 1 .2 mg/dL [facility] Calcium [Mass/Vol] 9.4 mg/dL 8.6 - 10. 6 mg/dL [facility] Chloride [Moles/Vol] 106 mmol/L 98 - 10 7 mmol/L [facility] CO2 [Moles/Vol] 26 mmol/L 21 - 32 mmol/L [facility] Creatinine [Mass/Vol] 1.33 mg/dL High 0.50 - 1.30 mg/dL [facility] GFR/1.73 sq M.predicted among non-blacks MDRD (S/P/Bld) [Vol rate/Area] 65 mL/min/{1.73_m2} - PINF [facility] Glucose [Mass/Vol] 112 mg/dL High 74 - 99 mg/dL [facility] Interpretation and review of laboratory results Abnormal [facility] Potassium [Moles/Vol] 3.8 mmol/L 3.5 - 5.3 mmol/L [facility] Protein [Mass/Vol] 6.5 g/dL 6.4 - 8.2 g/dL [facility] Sodium [Moles/Vol] 140 mmol/L 136 - 145 mmol/L [facility] Urea nitrogen [Mass/Vol] 17 mg/dL 6 - 23 mg/d L [facility] No Panel Informationon 12-08 [facility] Vancomycinon 12-08-2024 Vancomycin [Mass/Vol] 16.6 ug/mL 5.0 - 20.0 ug/mL [facility] Vancomycin [Mass/Vol]on 11-17 Interpretation and review of laboratory results Normal [facility] C-reactive proteinon 025 CRP [Mass/Vol] 10.84 mg/dL High NINF - 1.00 mg/dL [facility] CBC W Auto Differential pane l (Bld)on 12-07-2024 Basophils (Bld) [#/Vol] 0 10*3/uL 0.0 - 0.2 10*3/uL [employer] Basophils/100 WBC (Bld) 0.3 % 0.0 - 2.0 % [employer] Eosinophils (Bld) [#/Vol] 0.4 10*3/uL 0.0 - 0.5 10*3/uL [facility] Eosinophils/100 WBC (Bld) 3.3 % 0.0 - 6.0 % [facility] Erythrocyte distribution width (RBC) [Ratio] 16.6 % High 11.5 - 15.0 % [facility] Hematocrit (Bld) [Volume fraction] 26.4 % Low 40.0 - 52.0 % [facility] Hemoglobin (Bld) [Mass/Vol] 8.4 g/dL Low 13.0 - 18.0 g/dL [facility] Immature granulocytes (Bld) [#/Vol] 0 10*3/uL NINF - 0.1 10*3/uL [facility] Immature granulocytes/100 WBC (Bld) 0.3 % 0.0 - 2.0 % [facility] Interpretation and review of laboratory results Abnormal [facility] Lymphocytes (Bld) [#/Vol] 1.7 10*3/uL 1.0 - 4.3 10*3/uL [facility] Lymphocytes/100 WBC (Bld) 13.9 % Low 15.0 - 45.0 % [facility] MCH (RBC) [Entitic mass] 25.7 pg Low 26. 0 - 34.0 pg [facility] MCHC (RBC) [Mass/Vol] 31.8 % 30.5 - 36.0 % [facility] MCV (RBC) [Entitic vol] 80.7 fL 77.0 - 99.0 fL [facility] Monocytes (Bld) [#/Vol] 1.4 10*3/uL High 0.0 - 0.9 10*3/uL [facility] Monocytes/100 WBC (Bld) 11.3 % 5.0 - 13.0 % [facility] Neutrophils (Bld) [#/Vol] 8.5 10*3/uL High 1.8 - 7.5 10*3/uL [facility] Neutrophils/100 WBC (Bld) 70.9 % 38.0 - 82.0 % [facility] Nucleated RBC/100 WBC (Bld) [Ratio] 0 % [facility] Platelet mean volume (Bld) [Entitic vol] 8.5 fL Low 9.0 - 12.7 fL [facility] Platelets (Bld) [#/Vol] 609 10*3/uL High 140 - 440 10*3/uL [facility] RBC (Bld) [#/Vol] 3.27 10*6/uL Low 4.40 - 5.9 0 10*6/uL [facility] WBC (Bld) [#/Vol] 12 10*3/uL High 3.6 - 10.7 10*3/uL [facility] CBC WITH AUTO DIFFERENTIALon 12-07-2024 Basophils (Bld) [#/Vol] 0.0 10*3/uL Normal 0.0-0.2 [facility] Comment on above: Performed By: #### L [id number] ####Gambling Broker: JAZLYN JIMENEZ ([phone])[facility])[address] [place] [address] Basophils/100 WBC (Bld) 0.3 % Normal 0.0-2.0 [facility] Comment on above: Performed By: #### L [id number] ####Gambling Broker: JAZLYN JIMENEZ ([phone])[facility] ([facility])[address] [place] [address] Eosinophils (Bld) [#/Vol] 0.4 10*3/uL Normal 0.0-0.5 [facility] Comment on above: Performed By: #### L [id number] ####Gambling Broker: JAZLYN JIMENEZ ([phone])[facility])[address] [place] [address] Eosinophils/100 WBC (Bld) 3.3 % Normal 0.0-6.0 [facility] Comment on above: Performed By: #### L [id number] ####Gambling Broker: JAZLYN JIMENEZ ([phone])[facility])[address] [place] [address] Erythrocyte distribution width (RBC) [Ratio] 16.6 % High 11.5-15.0 [facility] Comment on above: Performed By: #### L [id number] ####Gambling Broker: JAZLYN JIMENEZ ([phone])[facility])[address] [place] [address] Hematocrit (Bld) [Volume fraction] 26.4 % Low 40.0-52.0 [facility] Comment on above: Performed By: #### L [id number] ####Gambling Broker: JAZLYN JIMENEZ ([phone])[facility])[address] [place] [address] Hemoglobin (Bld) [Mass/Vol] 8.4 g/dL Low 13.0-18.0 [facility] Comment on above: Performed By: #### L [id number] ####Gambling Broker: JAZLYN JIMENEZ ([phone])[facility])[address] [place] [address] IMMATURE GRANS % 0.3 % Normal 0.0-2.0 [facility] Comment on above: Performed By: #### L [id number] ####Gambling Broker: JAZLYN JIMENEZ ([phone])[facility])[address] [place] [address] IMMATURE GRANS ABSOLUTE 0.0 10*3/uL Normal <0.1 [facility] Comment on above: Performed By: #### L [id number] ####Gambling Broker: JAZLYN JIMENEZ ([phone])[facility])[address] [place] [address] Lymphocytes (Bld) [#/Vol] 1.7 10*3/uL Normal 1.0-4.3 [facility] Comment on above: Performed By: #### L [id number] ####Gambling Broker: JAZLYN JIMENEZ ([phone])[facility])[address] [place] [address] [place] Lymphocytes/100 WBC (Bld) 13.9 % Low 15.0-45.0 [facility] Comment on above: Performed By: #### L [id number] ####Gambling Broker: JAZLYN JIMENEZ ([phone])[facility])[address] [place] [address] MCH (RBC) [Entitic mass] 25.7 pg Low 26.0-34.0 [facility] Comment on above: Performed By: #### L [id number] ####Gambling Broker: JAZLYN JIMENEZ ([phone])[facility] ([facility])[address] [place] [address] MCHC 31.8 % Normal 30.5-36.0 [facility] Comment on above: Performed By: #### L [id number] ####Gambling Broker: JAZLYN JIMENEZ ([phone])[facility] ([facility])[address] [place] [address] MCV (RBC) [Entitic vol] 80.7 fL Normal 77.0-99.0 [facility] Comment on above: Performed By: #### L [id number] ####Gambling Broker: JAZLYN JIMENEZ ([phone])[facility] ([facility])[address] [place] [address] Monocytes (Bld) [#/Vol] 1.4 10*3/uL High 0.0-0.9 [facility] Comment on above: Performed By: #### L [id number] ####Gambling Broker: JAZLYN JIMENEZ ([phone])[facility] ([facility])[address] [place] [address] Monocytes/100 WBC (Bld) 11.3 % Normal 5.0-13.0 [facility] Comment on above: Performed By: #### L [id number] ####Gambling Broker: JAZLYN JIMENEZ ([phone])[facility] ([facility])[address] [place] [address] NEUTROPHILS ABSOLUTE 8.5 10*3/uL High 1.8-7.5 [facility] Comment on above: Performed By: #### L [id number] ####Gambling Broker: JAZLYN JIMENEZ ([phone])[facility])[address] [place] [address] Neutrophils/100 WBC (Bld) 70.9 % Normal 38.0-82.0 [facility] Comment on above: Performed By: #### L [id number] ####Gambling Broker: JAZLYN JIMENEZ ([phone])[facility])[address] [place] [address] NRBC 0.0 /100 WBCs Normal 0.0-2.0 [facility] Comment on above: Performed By: #### L [id number] ####Gambling Broker: JAZLYN JIMENEZ ([phone])[facility])[address] [place] [address] Platelet mean volume (Bld) [Entitic vol] 8.5 fL Low 9.0-12.7 [facility] Comment on above: Performed By: #### L [id number] ####Gambling Broker: JAZLYN JIMENEZ ([phone])[facility])[address] [place] [address] Platelets (Bld) [#/Vol] 609 10*3/uL High 140-440 [facility] Comment on above: Performed By: #### L [id number] ####Gambling Broker: JAZLYN JIMENEZ ([phone])[facility])[address] [place] [address] RBC (Bld) [#/Vol] 3.27 10*6/uL Low 4.40-5.90 [facility] Comment on above: Performed By: #### L [id number] ####Gambling Broker: JAZLYN JIMENEZ ([phone])[facility])[address] [place] [address] WBC (Bld) [#/Vol] 12.0 10*3/uL High 3.6-10.7 [facility] Comment on above: Performed By: #### L [id number] ####Gambling Broker: JAZLYN JIMENEZ ([phone])[facility])[address] [place] [address] CBC panel Auto (Bld)on 12-07 Erythrocyte distribution width (RBC) [Ratio] 16.8 % High 11.5 - 14.5 % [facility] Hematocrit (Bld) [Volume fraction] 26.5 % Low 41.0 - 52.0 % [facility] Hemoglobin (Bld) [Mass/Vol] 8 g/dL Low 13.5 - 17.5 g/dL [facility] Interpretation and review of laboratory results Abnormal [facility] MCH (RBC) [Entitic mass] 25.4 pg Low 26. 0 - 34.[address] [facility] MCHC (RBC) [Mass/Vol] 30.2 g/dL Low 32.0 - 36.0 g/dL [facility] MCV (RBC) [Entitic vol] 84 fL 80 - [address] [facility] Nucleated RBC/100 WBC (Bld) [Ratio] 0 % [facility] Platelets (Bld) [#/Vol] 645 10*3/uL High [facility] RBC (Bld) [#/Vol] 3.15 10*6/uL Low [facility] WBC (Bld) [#/Vol] 12 10*3/uL High [facility] COMPREHENSIVE METABOLIC PANE Yuriy 12-07-2024 Albumin [Mass/Vol] 2.5 g/dL Low 3.5-5.0 [facility] Comment on above: Performed By: #### L [id number], [id number], [id number] ####Gambling Broker: JAZLYN JIMENEZ ([phone])[address] ALP [Catalytic activity/Vol] 57 U/L Normal 40-150 [facility] Comment on above: Performed By: #### L [id number], [id number], [id number] ####Gambling Broker: JAZLYN JIMENEZ ([phone])[facility] ([facility])[address] [place] [address] ALT [Catalytic activity/Vol] U/L Normal <40 [facility] Comment on above: Performed By: #### L [id number], [id number], [id number] ####Gambling Broker: JAZLYN JIMENEZ ([phone])[facility])[address] [place] [address] Anion gap [Moles/Vol] 7 mmol/L Normal 3-13 [facility] Comment on above: Performed By: #### L [id number], [id number], [id number] ####Gambling Broker: JAZLYN JIMENEZ ([phone])[facility] [place] [address] AST [Catalytic activity/Vol] 10 U/L Normal <34 [facility] Comment on above: Performed By: #### L [id number], [id number], LAB17 ####Gambling Broker: JAZLYN JIMENEZ ([phone])[facility] ([facility])[address] [place] [address] Bilirubin [Mass/Vol] 0.3 mg/dL Normal <1.2 [facility] Comment on above: Performed By: #### Kamila [id number], [id number], LAB17 ####Gambling Broker: JAZLYN JIMENEZ ([phone])[facility] ([facility])[address] [place] [address] Calcium [Mass/Vol] 9.4 mg/dL Normal 8.4-10.2 [facility] Comment on above: Performed By: #### Kamila AB103, [id number], LAB17 ####Gambling Broker: JAZLYN JIMENEZ ([phone])[facility])[address] [place] [address] [place] Chloride [Moles/Vol] 113 mmol/L High 98-107 [facility] Comment on above: Performed By: #### L AB103, [id number], LAB17 ####Gambling Broker: JAZLYN JIMENEZ ([phone])[facility] [place] [address] [place] CO2 [Moles/Vol] 21 mmol/L Low 22-29 [facility] Comment on above: Performed By: #### L AB103, [id number], LAB17 ####Gambling Broker: JAZLYN JIMENEZ ([phone])[facility] ([facility])[address] [place] [address] [place] Creatinine [Mass/Vol] 1.17 mg/dL Normal 0.72-1.25 [facility] Comment on above: Performed By: #### L AB103, [id number], LAB17 ####Gambling Broker: JAZLYN JIMENEZ ([phone])[facility])[address] [place] [address] [place] GLOMERULAR FILTRATION RATE ML/MIN/1.73 SQ M.PREDICTED 75.5 mL/min/1.73m*2 Normal >60.0 [facility] Comment on above: Result Comment: Calc ulation based on the Chronic Kidney Disease Epidemiology Collaboration (CKD-EPI) equation refit without adjustment for race Performed By: #### L AB103, [id number], LAB17 ####Gambling Broker: JAZLYN JIMENEZ ([phone])[facility])[address] [place] [address] Glucose [Mass/Vol] 96 mg/dL Normal 74-100 [facility] Comment on above: Performed By: #### Kamila AB103, [id number], LAB17 ####Gambling Broker: JAZLYN JIMENEZ ([phone])[facility])[address] [place] [address] Potassium [Moles/Vol] 3.9 mmol/L Normal 3.5-5.1 [facility] Comment on above: Result Comment: [facility] potassium values may be up to 0.5 mmol/L lower than serum values. Performed By: #### Kamila AB103, [id number], LAB17 ####Gambling Broker: JAZLYN JIMENEZ ([phone])[facility])[address] [place] [address] Protein [Mass/Vol] 6.6 g/dL Normal 6.4-8.3 [facility] Comment on above: Performed By: #### L AB103, [id number], LAB17 ####Gambling Broker: JAZLYN JIMENEZ ([phone])[facility])[address] [place] [address] [place] Sodium [Moles/Vol] 141 mmol/L Normal 136-145 [facility] Comment on above: Performed By: #### L AB103, [id number], LAB17 ####Gambling Broker: JAZLYN JIMENEZ ([phone])[facility])[address] [place] [address] [place] Urea nitrogen [Mass/Vol] 14 mg/dL Normal 9-23 [facility] Comment on above: Performed By: #### L AB103, [id number], LAB17 ####Gambling Broker: JAZLYN JIMENEZ ([phone])[facility] ([address] Comprehensive metabolic 1998 panelon 12-07-2024 Albumin [Mass/Vol] 2.5 g/dL Low 3.5 - 5.0 g/dL [facility] ALP [Catalytic activity/Vol] 57 U/L 40 - 150 U/L [facility] ALT [Catalytic activity/Vol] U/L NINF - 40 U/L [facility] Anion gap [Moles/Vol] 7 mmol/L 3 - 13 mmol/L [facility] AST [Catalytic activity/Vol] 10 U/L NINF - 34 U/L [facility] Bilirubin [Mass/Vol] 0.3 mg/dL NINF - 1.2 mg/dL [facility] Calcium [Mass/Vol] 9.4 mg/dL 8.4 - 10. 2 mg/dL [facility] Chloride [Moles/Vol] 113 mmol/L High 98 - 10 7 mmol/L [facility] CO2 [Moles/Vol] 21 mmol/L Low 22 - 29 mmol/L [facility] Creatinine [Mass/Vol] 1.17 mg/dL 0.72 - 1.25 mg/dL [facility] GFR/1.73 sq M.predicted (S/P/Bld) [Vol rate/Area] 75.5 mL/min - PINF [facility] Comment on above: Calculation based on the Chronic Kidney Disease Epidemiology Collaboration (CKD-EPI) equation refit without adjustment for race Glucose [Mass/Vol] 96 mg/dL 74 - 100 mg/dL [facility] Interpretation and review of laboratory results Abnormal [facility] Potassium [Moles/Vol] 3.9 mmol/L 3.5 - 5.1 mmol/L [facility] Comment on above: Plasma potassium jeri ues may be up to 0.5 mmol/L lower than serum values. Protein [Mass/Vol] 6.6 g/dL 6.4 - 8.3 g/dL [facility] Sodium [Moles/Vol] 141 mmol/L 136 - 145 mmol/L [facility] Urea nitrogen [Mass/Vol] 14 mg/dL 9 - 23 mg/d L [facility] Comprehensive metabolic 2000 panelon 12-07-2024 Albumin BCP dye [Mass/Vol] 3.1 g/dL Low 3.4 - 5.0 g/dL [facility] ALP [Catalytic activity/Vol] 53 U/L 33 - 120 U/L [facility] ALT With P-5'-P [Catalytic activity/Vol] 7 U/L Low 10 - 52 U/L [facility] Anion gap [Moles/Vol] 13 mmol/L 10 - 2 0 mmol/L [facility] AST With P-5'-P [Catalytic activity/Vol] 8 U/L Low 9 - 39 U/L [facility] Bilirubin [Mass/Vol] 0.4 mg/dL 0.0 - 1 .2 mg/dL [facility] Calcium [Mass/Vol] 9.6 mg/dL 8.6 - 10. 6 mg/dL [facility] Chloride [Moles/Vol] 109 mmol/L High 98 - 10 7 mmol/L [facility] CO2 [Moles/Vol] 22 mmol/L 21 - 32 mmol/L [facility] Creatinine [Mass/Vol] 1.32 mg/dL High 0.50 - 1.30 mg/dL [facility] GFR/1.73 sq M.predicted among non-blacks MDRD (S/P/Bld) [Vol rate/Area] 65 mL/min/{1.73_m2} - PINF [facility] Glucose [Mass/Vol] 91 mg/dL 74 - 99 mg/dL [facility] Potassium [Moles/Vol] 3.9 mmol/L 3.5 - 5.3 mmol/L [facility] Protein [Mass/Vol] 6.7 g/dL 6.4 - 8.2 g/dL [facility] Sodium [Moles/Vol] 140 mmol/L 136 - 145 mmol/L [facility] Urea nitrogen [Mass/Vol] 16 mg/dL 6 - 23 mg/d L [facility] Consulton 12-07-2024 Consult Pharmacy Managed Vancomycin Dosing Service Consult Note Consult Date: 12/07/24 Patient Name: Kevan La Allergies: Banana Age: 49 y.o. Sex: male Estimated body mass index is 22.19 kg/m? as calculated from the following: Height as of this encounter: 2.007 m (6' 7"). Weight as of this encounter: 89.4 kg (197 lb). DW: 89.4 kg Lab Results Component Value Date CREATININE 1.19 12/06/2024 CREATININE 1.42 (H) 11/09/2024 BUN 15 12/06/2024 BUN 19 11/09/2024 WBC 13.0 (H) 12/06/2024 WBC 13.0 (H) 11/09/2024 Calculated CrCl: 92.5 mL/min (Cockcroft-Gault) Consulted By: Jayro Ashby Infectious Diagnosis: SSTI (AUC Goal 400-600 mg/L*hr) Random Vancomycin Level Due: 12/08/24 Antimicrobials: Patient recently received an antibiotic (last 12 hours) None Assessment/Plan: Doses, serum creatinine, and vancomycin levels interfaced automatically to Backtrace I/O and data has been analyzed and interpreted. Start Vancomycin 1,250 mg every 12 hours based on patient age, weight, renal function, and infectious diagnosis (14 mg/kg). Predicted AUC = 561 mg/L*hr (goal 400-600 mg/L*hr) PAUC = 90% (probability that AUC is >400 mg/L*hr) Pconc = 27% (probability that Ctrough is above 20 mcg/mL (toxicity)) Will assess random level on 12/08/24 and adjust as appropriate. Trend serum creatinine. Orders placed. Thank you for this consult. Please secure text or call with questions. DATE: 12/07/24 TIME: 6:11 AM Nicola Grace [facility] Clinical Pharmacist Available via Secure Chat [facility] ED Nursing Noteon 12-07-2024 ED Nursing Note Report to AMAN Galindo. [facility] ED Nursing Note Patient provided urinal per request. Respirations even and unlabored. No acute distress noted. [facility] ED Nursing Note Report from AMAN Galindo. [facility] ED Nursing Note Report to Josie/AMAN and patient moved to room 9 with all belongings and breakfast tray Normal [facility] ED Nursing Note Patient moving from 43 to 9 now Normal [facility] ED Nursing Note RN/Margarita ordered breakfast for the patient per his preference Normal [facility] ED Nursing Note Requested pharmacy to retime Vanc due to 3 hour administration of Zosyn (& both ordered at same time) Normal [facility] ED Nursing Note Patient actively vomiting - provider notified Normal [facility] ED Nursing Note Report given to AMAN Sutton Normal [facility] ESR Westergren method (Bld) [Velocity]on 12-07-2024 ESR (Bld) [Velocity] 102 mm/h High 0 - 20 mm/h [facility] Interpretation and review of laboratory results Abnormal [facility] Laboratory - Chemistry and C hemistry - challengeon 12-07-2024 Magnesium [Mass/Vol] 1.8 mg/dL 1.6 - 2 .6 mg/dL [facility] MAGNESIUMon 12-07-2024 Magnesium [Mass/Vol] 1.8 mg/dL Normal 1.6-2.6 [facility] Comment on above: Result Comment: MAYRA Dhillon COMMENTS: Higher values can be expected in females during menses. Performed By: #### L AB103, [id number], LAB17 ####Gambling Broker: JAZLYN JIMENEZ ([phone])[address] Magnesiumon 12-07-2024 Magnesium [Mass/Vol] 1.86 mg/dL 1.60 - 2.40 mg/dL [facility] Magnesium [Mass/Vol]on 12-07 Interpretation and review of laboratory results Normal [facility] Higher values can be expected in females during menses. [facility] No Panel Informationon 12-07 Interpretation and review of laboratory results Abnormal [facility] Interpretation and review of laboratory results Normal [facility] Nursing Noteon 12-07-2024 Nursing Note [id number] called report to ambulance is here to pick patient up Normal [facility] PHOSPHORUSon 12-07-2024 Phosphate [Mass/Vol] 2.5 mg/dL Normal 2.3-4.7 [facility] Comment on above: Performed By: #### L AB103, [id number], LAB17 ####Gambling Broker: JAZLYN JIMENEZ ([phone])[facility] ([facility])[address] [place] [address] Phosphate [Moles/Vol]on 11-17 Phosphate [Mass/Vol] 2.5 mg/dL 2.3 - 4 .7 mg/dL [facility] Progress Noteon 12-07-2024 Progress Note Physician Response Please review the following and provide your response below. Please clarify which of the following accurately describes the patient's CKD Stage: CKD Stage 2 (GFR 60-89) This documentation will become part of the patient's medical record. Normal [facility] BLOOD CULTUREon 12-06-2024 Bacteria identified Cx Nom (Bld) BLOOD CULTURE Reference No growth at 5 days ORDER COMMENTS: Blood Collection Site: Right Forearm [ S = SUSCEPTIBLE R = RESISTANT I = INTERMEDIATE S-DD = Susceptible-dose dependent NS = Non-susceptible NO = No Interpretation ] Normal [facility] Comment on above: Performed By: #### L [id number], [id number] #### Gambling Broker: JAZLYN JIMENEZ ([phone]) [facility] ([facility]) [address] [place] [address] [place] Bacteria identified Cx Nom (Bld) BLOOD CULTURE Reference No growth at 5 days ORDER COMMENTS: Blood Collection Site: Right Antecubital [ S = SUSCEPTIBLE R = RESISTANT I = INTERMEDIATE S-DD = Susceptible-dose dependent NS = Non-susceptible NO = No Interpretation ] Normal [facility] Comment on above: Performed By: #### L [id number], [id number] #### Gambling Broker: JAZLYN JIMENEZ ([phone]) [facility] ([facility]) [address] [place] [address] [place] C-REACTIVE PROTEINon 025 CRP [Mass/Vol] 95.9 mg/L High <5.0 [facility] Comment on above: Performed By: #### L AB17, [id number] ####Gambling Broker: JAZLYN JIMENEZ ([phone])[facility] ([facility])[address] [place] [address] CBC W Auto Differential pane l (Bld)on 12-06-2024 Basophils (Bld) [#/Vol] 0 10*3/uL 0.0 - 0.2 10*3/uL [facility] Basophils/100 WBC (Bld) 0.3 % 0.0 - 2.0 % [facility] Eosinophils (Bld) [#/Vol] 0.3 10*3/uL 0.0 - 0.5 10*3/uL [facility] Eosinophils/100 WBC (Bld) 2.4 % 0.0 - 6.0 % [facility] Erythrocyte distribution width (RBC) [Ratio] 16.9 % High 11.5 - 15.0 % [facility] Hematocrit (Bld) [Volume fraction] 28.6 % Low 40.0 - 52.0 % [facility] Hemoglobin (Bld) [Mass/Vol] 9 g/dL Low 13.0 - 18.0 g/dL [facility] [employer] Immature granulocytes (Bld) [#/Vol] 0 10*3/uL NINF - 0.1 10*3/uL [facility] Immature granulocytes/100 WBC (Bld) 0.3 % 0.0 - 2.0 % [facility] Interpretation and review of laboratory results Abnormal [facility] Lymphocytes (Bld) [#/Vol] 1.5 10*3/uL 1.0 - 4.3 10*3/uL [facility] Lymphocytes/100 WBC (Bld) 11.4 % Low 15.0 - 45.0 % [facility] MCH (RBC) [Entitic mass] 25.7 pg Low 26. 0 - 34.0 pg [facility] MCHC (RBC) [Mass/Vol] 31.5 % 30.5 - 36.0 % [facility] MCV (RBC) [Entitic vol] 81.7 fL 77.0 - 99.0 fL [facility] Monocytes (Bld) [#/Vol] 1.1 10*3/uL High 0.0 - 0.9 10*3/uL [facility] Monocytes/100 WBC (Bld) 8.6 % 5.0 - 13.0 % [facility] [employer] Neutrophils (Bld) [#/Vol] 10 10*3/uL High 1.8 - 7.5 10*3/uL [facility] Neutrophils/100 WBC (Bld) 77 % 38.0 - 82.0 % [facility] Nucleated RBC/100 WBC (Bld) [Ratio] 0 % [facility] Platelet mean volume (Bld) [Entitic vol] 8.8 fL Low 9.0 - 12.7 fL [facility] Platelets (Bld) [#/Vol] 681 10*3/uL High 140 - 440 10*3/uL [facility] RBC (Bld) [#/Vol] 3.5 10*6/uL Low 4.40 - 5.9 0 10*6/uL [facility] WBC (Bld) [#/Vol] 13 10*3/uL High 3.6 - 10.7 10*3/uL [facility] CBC WITH AUTO DIFFERENTIALon 12-06-2024 Basophils (Bld) [#/Vol] 0.0 10*3/uL Normal 0.0-0.2 [facility] Comment on above: Performed By: #### Kamila [id number], [id number] ####Gambling Broker: JAZLYN JIMENEZ ([phone])[facility] ([facility])[address] [place] [address] Basophils/100 WBC (Bld) 0.3 % Normal 0.0-2.0 [facility] Comment on above: Performed By: #### Kamila [id number], [id number] ####Gambling Broker: JAZLYN JIMENEZ ([phone])[facility] ([facility])[address] [place] [address] [place] Eosinophils (Bld) [#/Vol] 0.3 10*3/uL Normal 0.0-0.5 [facility] Comment on above: Performed By: #### Kamila [id number], [id number] ####Gambling Broker: JAZLYN JIMENEZ ([phone])[facility])[address] [place] [address] [place] Eosinophils/100 WBC (Bld) 2.4 % Normal 0.0-6.0 [facility] Comment on above: Performed By: #### L [id number], [id number] ####Gambling Broker: JAZLYN JIMENEZ ([phone])[facility])[address] [place] [address] Erythrocyte distribution width (RBC) [Ratio] 16.9 % High 11.5-15.0 [facility] Comment on above: Performed By: #### Kamila [id number], [id number] ####Gambling Broker: JAZLYN JIMENEZ ([phone])[facility])[address] [place] [address] Hematocrit (Bld) [Volume fraction] 28.6 % Low 40.0-52.0 [facility] Comment on above: Performed By: #### Kamila KELSEY, [id number] ####Gambling Broker: JAZLYN JIMENEZ ([phone])[address] Hemoglobin (Bld) [Mass/Vol] 9.0 g/dL Low 13.0-18.0 [facility] Comment on above: Performed By: #### Kamila [id number], [id number] ####Gambling Broker: JAZLYN JIMENEZ ([phone])[facility])[address] [place] [address] IMMATURE GRANS % 0.3 % Normal 0.0-2.0 [facility] Comment on above: Performed By: #### Kamial [id number], [id number] ####Gambling Broker: JAZLYN JIMENEZ ([phone])[facility])[address] [place] [address] IMMATURE GRANS ABSOLUTE 0.0 10*3/uL Normal <0.1 [facility] Comment on above: Performed By: #### Kamila [id number], [id number] ####Gambling Broker: JAZLYN JIMENEZ ([phone])[address] Lymphocytes (Bld) [#/Vol] 1.5 10*3/uL Normal 1.0-4.3 [facility] Comment on above: Performed By: #### L [id number], [id number] ####Gambling Broker: JAZLYN JIMENEZ ([phone])[facility])[address] [place] [address] Lymphocytes/100 WBC (Bld) 11.4 % Low 15.0-45.0 [facility] Comment on above: Performed By: #### Kamila CV2286, [id number] ####Gambling Broker: JAZLYN JIMENEZ ([phone])[facility])[address] [place] [address] MCH (RBC) [Entitic mass] 25.7 pg Low 26.0-34.0 [facility] Comment on above: Performed By: #### Kamila KELSEY, [id number] ####Gambling Broker: JAZLYN JIMENEZ ([phone])[facility])[address] [place] [address] MCHC 31.5 % Normal 30.5-36.0 [facility] Comment on above: Performed By: #### Kamila KELSEY, [id number] ####Gambling Broker: JAZLYN JIMENEZ ([phone])[facility])[address] [place] [address] MCV (RBC) [Entitic vol] 81.7 fL Normal 77.0-99.0 [facility] Comment on above: Performed By: #### Kamila [id number], [id number] ####Gambling Broker: JAZLYN JIMENEZ ([phone])[facility])[address] [place] [address] Monocytes (Bld) [#/Vol] 1.1 10*3/uL High 0.0-0.9 [facility] Comment on above: Performed By: #### L TN5450, [id number] ####Gambling Broker: JAZLYN JIMENEZ ([phone])[facility])[address] [place] [address] Monocytes/100 WBC (Bld) 8.6 % Normal 5.0-13.0 [facility] Comment on above: Performed By: #### Kamila [id number], [id number] ####Gambling Broker: JAZLYN JIMENEZ ([phone])[facility] ([facility])[address] [place] [address] NEUTROPHILS ABSOLUTE 10.0 10*3/uL High 1.8-7.5 [facility] Comment on above: Performed By: #### Kamila DE SOUZA8, [id number] ####Gambling Broker: JAZLYN JIMENEZ ([phone])[facility] ([facility])[address] [place] [address] Neutrophils/100 WBC (Bld) 77.0 % Normal 38.0-82.0 [facility] Comment on above: Performed By: #### Kamila KELSEY, [id number] ####Gambling Broker: JAZLYN JIMENEZ ([phone])[facility] ([facility])[address] [place] [address] NRBC 0.0 /100 WBCs Normal 0.0-2.0 [facility] Comment on above: Performed By: #### Kamila KELSEY, [id number] ####Gambling Broker: JAZLYN JIMENEZ ([phone])[facility] ([facility])[address] [place] [address] Platelet mean volume (Bld) [Entitic vol] 8.8 fL Low 9.0-12.7 [facility] Comment on above: Performed By: #### Kamila DE SOUZA8, [id number] ####Gambling Broker: JAZLYN JIMENEZ ([phone])[facility] ([facility])[address] [place] [address] [place] Platelets (Bld) [#/Vol] 681 10*3/uL High 140-440 [facility] Comment on above: Performed By: #### Kamila [id number], [id number] ####Gambling Broker: JAZLYN JIMENEZ ([phone])[facility])[address] [place] [address] RBC (Bld) [#/Vol] 3.50 10*6/uL Low 4.40-5.90 [facility] Comment on above: Performed By: #### Kamila KELSEY, [id number] ####Gambling Broker: JAZLYN JIMENEZ ([phone])[facility] ([facility])[address] [place] [address] WBC (Bld) [#/Vol] 13.0 10*3/uL High 3.6-10.7 [facility] Comment on above: Performed By: #### L [id number], [id number] ####Gambling Broker: JAZLYN JIMENEZ ([phone])[facility] ([facility])[address] [place] [address] COMPLETE URINALYSISon 2024 BILIRUBIN, TOTAL PRESENCE IN URINE Negative Normal Negative [facility] Comment on above: Performed By: #### L [id number] ####Gambling Broker: JAZLYN JIMENEZ ([phone])[facility])[address] [place] [address] Clarity (U) Clear Normal Clear [facility] Comment on above: Performed By: #### L [id number] ####Gambling Broker: JAZLYN JIMENEZ ([phone])[facility] ([facility])[address] [place] [address] Color (U) Light Yellow Normal Lt. Yellow [facility] Comment on above: Performed By: #### L [id number] ####Gambling Broker: JAZLYN JIMENEZ ([phone])[facility])[address] [place] [address] GLUCOSE (MG/DL) IN URINE Normal Normal Normal (<70 ) [facility] Comment on above: Performed By: #### L [id number] ####Gambling Broker: JAZLYN JIMENEZ ([phone])[facility])[address] [place] [address] HEMOGLOBIN PRESENCE IN URINE Negative Normal Negative [facility] Comment on above: Performed By: #### L [id number] ####Gambling Broker: JAZLYN JIMENEZ ([phone])[facility])[address] [place] [address] Ketones Ql (U) Negative Normal Negative [facility] Comment on above: Performed By: #### L [id number] ####Gambling Broker: JAZLYN JIMENEZ ([phone])[facility] ([facility])[address] [place] [address] LEUKOCYTE ESTERASE PRESENCE IN URINE BY TEST STRIP Negative Normal Negative [facility] Comment on above: Performed By: #### L [id number] ####Gambling Broker: JAZLYN JIMENEZ ([phone])[facility] ([facility])[address] [place] [address] NITRITE PRESENCE IN URINE Negative Normal Negative [facility] Comment on above: Performed By: #### L [id number] ####Gambling Broker: JAZLYN JIMENEZ ([phone])[facility] ([facility])[address] [place] [address] pH (U) 5.5 [pH] Normal 5.0-8.0 [facility] Comment on above: Performed By: #### L [id number] ####Gambling Broker: JAZLYN JIMENEZ ([phone])[facility] ([facility])[address] [place] [address] Protein (U) [Mass/Vol] Negative Normal Negative [facility] Comment on above: Performed By: #### L [id number] ####Gambling Broker: JAZLYN JIMENEZ ([phone])[facility] ([facility])[address] [place] [address] Specific gravity (U) [Rel density] 1.016 Normal 1.005-1.030 [facility] Comment on above: Performed By: #### L [id number] ####Gambling Broker: JAZLYN JIMENEZ ([phone])[facility] ([facility])[address] [place] [address] UROBILINOGEN (MG/DL) IN URINE Normal Normal Normal (0-1) [facility] Comment on above: Performed By: #### L [id number] ####Gambling Broker: JAZLYN JIMENEZ ([phone])[facility] ([facility])[address] [place] [address] COMPREHENSIVE METABOLIC PANE Yuriy 12-06-2024 Albumin [Mass/Vol] 2.7 g/dL Low 3.5-5.0 [facility] Comment on above: Performed By: #### L AB17, [id number] ####Gambling Broker: JAZLYN JIMENEZ ([phone])[facility] ([facility])[address] [place] [address] ALP [Catalytic activity/Vol] 63 U/L Normal 40-150 [facility] Comment on above: Performed By: #### L AB17, [id number] ####Gambling Broker: JAZLYN JIMENEZ ([phone])[facility] ([facility])[address] [place] [address] ALT [Catalytic activity/Vol] 7 U/L Normal <40 [facility] Comment on above: Performed By: #### L AB17, [id number] ####Gambling Broker: JAZLYN JIMENEZ ([phone])[facility] ([facility])[address] [place] [address] Anion gap [Moles/Vol] 8 mmol/L Normal 3-13 [facility] Comment on above: Performed By: #### L AB17, [id number] ####Gambling Broker: JAZLYN JIMENEZ ([phone])[facility] ([facility])[address] [place] [address] AST [Catalytic activity/Vol] 17 U/L Normal <34 [facility] Comment on above: Performed By: #### L AB17, [id number] ####Gambling Broker: JAZLYN JIMENEZ ([phone])[facility] ([facility])[address] [place] [address] [place] Bilirubin [Mass/Vol] 0.2 mg/dL Normal <1.2 [facility] Comment on above: Performed By: #### L [id number], [id number] ####Gambling Broker: JAZLYN JIMENEZ ([phone])[facility] ([facility])[address] [place] [address] [place] Calcium [Mass/Vol] 10.0 mg/dL Normal 8.4-10.2 [facility] Comment on above: Performed By: #### L [id number], [id number] ####Gambling Broker: JAZLYN JIMENEZ ([phone])[facility] ([facility])[address] [place] [address] Chloride [Moles/Vol] 110 mmol/L High 98-107 [facility] Comment on above: Performed By: #### L [id number], [id number] ####Gambling Broker: JAZLYN JIMENEZ ([phone])[facility] [facility] [place] [address] CO2 [Moles/Vol] 23 mmol/L Normal 22-29 [facility] Comment on above: Performed By: #### L [id number], [id number] ####Gambling Broker: JAZLYN JIMENEZ ([phone])[facility])[address] [place] [address] Creatinine [Mass/Vol] 1.19 mg/dL Normal 0.72-1.25 [facility] Comment on above: Performed By: #### L AB17, [id number] ####Gambling Broker: JAZLYN JIMENEZ ([phone])[facility] ([facility])[address] [place] [address] GLOMERULAR FILTRATION RATE ML/MIN/1.73 SQ M.PREDICTED 74.0 mL/min/1.73m*2 Normal >60.0 [facility] Comment on above: Result Comment: Calc ulation based on the Chronic Kidney Disease Epidemiology Collaboration (CKD-EPI) equation refit without adjustment for race Performed By: #### L AB17, [id number] ####Gambling Broker: JAZLYN JIMENEZ ([phone])[facility] ([facility])[address] [place] [address] Glucose [Mass/Vol] 92 mg/dL Normal 74-100 [facility] Comment on above: Performed By: #### L AB17, [id number] ####Gambling Broker: JAZLYN JIMENEZ ([phone])[facility])[address] [place] [address] Potassium [Moles/Vol] 4.3 mmol/L Normal 3.5-5.1 [facility] Comment on above: Result Comment: [facility] potassium values may be up to 0.5 mmol/L lower than serum values. Performed By: #### L AB17, [id number] ####Gambling Broker: JAZLYN JIMENEZ ([phone])[facility])[address] [place] [address] Protein [Mass/Vol] 7.4 g/dL Normal 6.4-8.3 [facility] Comment on above: Performed By: #### L AB17, [id number] ####Gambling Broker: JAZLYN JIMENEZ ([phone])[facility] ([facility])[address] [place] [address] Sodium [Moles/Vol] 141 mmol/L Normal 136-145 [facility] Comment on above: Performed By: #### L AB17, [id number] ####Gambling Broker: JAZLYN JIMENEZ ([phone])[facility] ([facility])[address] [place] [address] Urea nitrogen [Mass/Vol] 15 mg/dL Normal 9-23 [facility] Comment on above: Performed By: #### L AB17, [id number] ####Gambling Broker: JAZLYN JIMENEZ ([phone])[facility] ([facility])[address] [place] [address] CRP [Mass/Vol]Ordered By: Dave Churchill on 12-06-2024 Interpretation and review of laboratory results Abnormal [facility] CT PELVIS W IV CONTRASTon CT PELVIS W IV CONTRAST [facility] LA [facility] 1975 [id number] Exam Date/Time: 12/06/2024 12:46 Procedure: CT PELVIS W IV CONTRAST Ordering Provider: HOLLINS MICHAEL Reason For Exam: large left hip and upper thigh wounds, concern for possible osteomyelitis Examination: CT pelvis Indication: large left hip and upper thigh wounds, concern for possible osteomyelitis Technique: Axial CT images of the pelvis were obtained at 1 mm intervals following intravenous contrast administration of 75 mL Isovue-370. Sagittal and coronal reconstructions were reviewed as well. Dose reduction was employed with automatic exposure control. Findings: Large fluid collection present within the proximal left upper thigh measuring 8.5 x 8.4 cm in axial dimension and 16.5 cm in length. There is a large overlying wound with cutaneous thickening and subcutaneous edema. There is at least moderate joint space loss of the bilateral sacroiliac joints. Probable few small bladder diverticula present, posteriorly. IMPRESSION: Impression: Large wound along the proximal posterior thigh with large abscess within the posterior compartment of the left upper thigh. There is also presumed cellulitis. No obvious acute cortical erosion. Please note, the marrow is not assessed on a CT examination. Report Dictated on Electronically Signed By: Tess Carter MD Electronically Signed Date/Time: 12/06/2024 1:29 PM EDT Pt couldn't lay flat on our table best imaging possible Normal [facility] CT Pelvis W contrast Mp Impression: Large wound along the proximal posterior thigh with large abscess within the posterior compartment of the left upper thigh. There is also presumed cellulitis. No obvious acute cortical erosion. Please note, the marrow is not assessed on a CT examination. Report Dictated on Electronically Signed By: Tess Carter MD Electronically Signed Date/Time: 12/06/2024 1:29 PM EDT [facility] Patient Name: KEVAN LA : 1975 [id number] Exam Date/Time: 12/06/2024 12:46 Procedure: CT PELVIS W IV CONTRAST Ordering Provider: HOLLINS MICHAEL Reason For Exam: large left hip and upper thigh wounds, concern for possible osteomyelitis Examination: CT pelvis Indication: large left hip and upper thigh wounds, concern for possible osteomyelitis Technique: Axial CT images of the pelvis were obtained at 1 mm intervals following intravenous contrast administration of 75 mL Isovue-370. Sagittal and coronal reconstructions were reviewed as well. Dose reduction was employed with automatic exposure control. Findings: Large fluid collection present within the proximal left upper thigh measuring 8.5 x 8.4 cm in axial dimension and 16.5 cm in length. There is a large overlying wound with cutaneous thickening and subcutaneous edema. There is at least moderate joint space loss of the bilateral sacroiliac joints. Probable few small bladder diverticula present, posteriorly. [facility] Tess Carter MD - 12/06/2024 Patient Name: KEVAN LA : 1975 [id number] Exam Date/Time: 12/06/2024 12:46 Procedure: CT PELVIS W IV CONTRAST Ordering Provider: HOLLINS MICHAEL Reason For Exam: large left hip and upper thigh wounds, concern for possible osteomyelitis Examination: CT pelvis Indication: large left hip and upper thigh wounds, concern for possible osteomyelitis Technique: Axial CT images of the pelvis were obtained at 1 mm intervals following intravenous contrast administration of 75 mL Isovue-370. Sagittal and coronal reconstructions were reviewed as well. Dose reduction was employed with automatic exposure control. Findings: Large fluid collection present within the proximal left upper thigh measuring 8.5 x 8.4 cm in axial dimension and 16.5 cm in length. There is a large overlying wound with cutaneous thickening and subcutaneous edema. There is at least moderate joint space loss of the bilateral sacroiliac joints. Probable few small bladder diverticula present, posteriorly. IMPRESSION: Impression: Large wound along the proximal posterior thigh with large abscess within the posterior compartment of the left upper thigh. There is also presumed cellulitis. No obvious acute cortical erosion. Please note, the marrow is not assessed on a CT examination. Report Dictated on Electronically Signed By: Tess Carter MD Electronically Signed Date/Time: 12/06/2024 1:29 PM EDT [facility] Radiology Study observation (narrative) [facility] CT Pelvis W contrast IVOrder ed By: Tess Carter on 12-06-2024 [facility] Work Phone: CULTURE ANAEROBICon 12-07-19 25 CULTURE ANAEROBIC ANAEROBIC CULTURE Reference Mixed aerobic and anaerobic bacteria present. BACTEROIDES FRAGILIS GROUP Few Bacteroides fragilis group (A) [ S = SUSCEPTIBLE R = RESISTANT I = INTERMEDIATE S-DD = Susceptible-dose dependent NS = Non-susceptible NO = No Interpretation ] Normal [facility] Comment on above: Performed By: #### L [id number] #### Gambling Broker: JAZLYN JIMENEZ ([phone]) [facility] ([facility]) [address] [place] [address] CULTURE, AEROBIC BACTERIA WI TH GRAM STAINon 12-06-2024 CULTURE, AEROBIC BACTERIA WITH GRAM STAIN CULTURE Reference Moderate enteric phil present GRAM STAIN RESULT (A) Reference (A) Few Polymorphonuclear leukocytes per low power field Rare Gram negative bacilli [ S = SUSCEPTIBLE R = RESISTANT I = INTERMEDIATE S-DD = Susceptible-dose dependent NS = Non-susceptible NO = No Interpretation ] Normal [facility] Comment on above: Performed By: #### L [id number], [id number] #### Gambling Broker: JAZLYN JIMENEZ ([id number]) [facility] ([facility]) [address] [place] [address] Comprehensive metabolic 1998 panelon 12-06-2024 Albumin [Mass/Vol] 2.7 g/dL Low 3.5 - 5.0 g/dL [facility] ALP [Catalytic activity/Vol] 63 U/L 40 - 150 U/L [facility] ALT [Catalytic activity/Vol] 7 U/L NINF - 40 U/L [facility] Anion gap [Moles/Vol] 8 mmol/L 3 - 13 mmol/L [facility] AST [Catalytic activity/Vol] 17 U/L NINF - 34 U/L [facility] Bilirubin [Mass/Vol] 0.2 mg/dL NINF - 1.2 mg/dL [facility] Calcium [Mass/Vol] 10 mg/dL 8.4 - 10. 2 mg/dL [facility] Chloride [Moles/Vol] 110 mmol/L High 98 - 10 7 mmol/L [facility] CO2 [Moles/Vol] 23 mmol/L 22 - 29 mmol/L [facility] Creatinine [Mass/Vol] 1.19 mg/dL 0.72 - 1.25 mg/dL [facility] GFR/1.73 sq M.predicted (S/P/Bld) [Vol rate/Area] 74 mL/min - PINF [facility] Comment on above: Calculation based on the Chronic Kidney Disease Epidemiology Collaboration (CKD-EPI) equation refit without adjustment for race Glucose [Mass/Vol] 92 mg/dL 74 - 100 mg/dL [facility] Interpretation and review of laboratory results Abnormal [facility] Potassium [Moles/Vol] 4.3 mmol/L 3.5 - 5.1 mmol/L [facility] Comment on above: Plasma potassium jeri ues may be up to 0.5 mmol/L lower than serum values. Protein [Mass/Vol] 7.4 g/dL 6.4 - 8.3 g/dL [facility] Sodium [Moles/Vol] 141 mmol/L 136 - 145 mmol/L [facility] Urea nitrogen [Mass/Vol] 15 mg/dL 9 - 23 mg/d L [facility] ECG 12-LEADon 12-06-2024 ECG 12-LEAD IMPRESSION: Sinus bradycardia Electronically Signed On 12-06-2024 11:47:13 EDT by Fre Hollins [facility] ED Nursing Noteon 12-06-2024 ED Nursing Note Assume care of pt from AMAN Sutton for lunch coverage [facility] ED Nursing Note Patient requested pillow to place under right hip/leg for comfort. States he got a text message from that he can "early check in" and questioned if transfer was arranged. This nurse advised patient unknown at this time. [facility] ED Nursing Note Pt to [facility] ED Nursing Note This RN attempted to obtain another IV access and blood cultures but was unsuccessful [facility] ED Nursing Note Report to AMAN Pittman. [facility] ED Nursing Note Pt presents to ED via EMS from an assisted living facility with c/o a seeping ulcer. EMS reports this has been an ongoing issue. Pt states he is only ambulatory for short distances. Pt is A&Ox4. [facility] ED Provider Noteon ED Provider Note Emergency Department Encounter [facility] EMERGENCY DEPT Patient: Kevan La : 1975 Date of Evaluation: 12/06/2024 ED Supervising Physician: Fer Hollins MD I independently examined and evaluated Kevan La. This will serve as my Supervisory note and shared attestation. I did perform a substantive portion of the visit including all aspects of the Medical Decision Making. I wore appropriate PPE for the entirety of this encounter. History: In brief, Kevan La is a 49 y.o. male that presents to the emergency department from an ECF with increased wound drainage from the left hip area. Patient has a history of squamous cell cancer. He has developed significant wound to the left buttock area leading towards the left greater trochanter. There is been significantly more drainage. There is been no complaint of fever or chills. Patient notes that he was initially diagnosed in September of this year and he has not been home since. Focused exam: On examination the patient is a middle-age male found lying on a cart. He is alert and oriented. He appears older than stated age. Chest is clear. Normal cardiac exam. Abdomen is soft and nontender. Patient has an extremely large open wound with femur evident in the left lateral gluteal area. The wound is gaping. There is significant erythema as well as drainage. Differential Diagnosis: The patient may very well have osteomyelitis now from this open wound. The open wound is infected. Diagnostic testing undertaken, as well as those tests considered but not ordered: Laboratory work including inflammatory markers will be obtained. X-rays will be obtained. Orthopedic consultation will be obtained with medical admission. ED testing and evaluation will be obtained to help differentiate these diagnostic possibilities and determine the most likely cause. Brief ED course/MDM: In the emergency department intravenous antibiotics are initiated as we are awaiting results of laboratory testing and x-rays. Disposition will be based on results of diagnostic testing, response to therapy, and reassessment. Sources of History: I evaluated other historical sources including previous outpatient records and admission records. Patient is aware of care plan. All diagnostic, treatment, and disposition decisions were made by myself in conjunction with the Resident. I also supervised gomez portions of any procedures performed by the Resident. For all further details of the patient's emergency department visit, please see their documentation. (Comment: Please note this report has been produced using speech recognition software and may contain errors related to that system including errors in grammar, punctuation, and spelling, as well as words and phrases that may be inappropriate. If there are any questions or concerns please feel free to contact the dictating provider for clarification.) Fer Hollins MD [employer] Fer Hollins MD 12/06/24 1120 [facility] ED Provider Note Emergency Department Encounter Location: [facility] EMERGENCY DEPT Patient: Kevan La : 1975 Date of evaluation: 12/06/2024 ED Provider: Rogelio Wilkinson DO Time received sign-out: [id number] Kevan La was checked out to me by Dr Schroeder. Please see his/her initial documentation for details of the patient's initial ED presentation, physical exam and completed studies. I did perform a substantive portion of the visit including all aspects of the Medical Decision Making. In brief, Kevan La is a 49 y.o. male that presented to the emergency department with increasing pain and drainage of abscess itself. Wound drained 10/13 by complicated by malignant tissue. Surgery would not intervene on this patient as he does follow with . I have reviewed and interpreted all of the currently available lab results and diagnostics from this visit: Results for orders placed or performed during the hospital encounter of 12/06/24 ECG 12 lead Collection Time: 12/06/24 11:37 AM Result Value Ref Range Heart Rate 58 bpm QRSD Interval 94 ms QT Interval 397 ms QTC Interval 390 ms P [place] 44 degrees QRS [place] 55 degrees T Wave [place] 56 degrees IN Interval 142 ms Blood culture Site #1 - Suspected Infection Collection Time: 12/06/24 11:57 AM Specimen: Blood, Venous Result Value Ref Range Blood Culture Blood culture incubation started Comprehensive metabolic panel Collection Time: 12/06/24 11:57 AM Result Value Ref Range SODIUM 141 136 - 145 mmol/L POTASSIUM 4.3 3.5 - 5.1 mmol/L CHLORIDE 110 (H) 98 - 107 mmol/L CARBON DIOXIDE 23 22 - 29 mmol/L ANION GAP 8 3 - 13 mmol/L UREA NITROGEN 15 9 - 23 mg/dL CREATININE 1.19 0.72 - 1.25 mg/dL GLUCOSE 92 74 - 100 mg/dL CALCIUM 10.0 8.4 - 10.2 mg/dL AST (SGOT) 17 <34 U/L ALT 7 <40 U/L ALKALINE PHOSPHATASE 63 40 - 150 U/L ALBUMIN 2.7 (L) 3.5 - 5.0 g/dL BILIRUBIN, TOTAL 0.2 <1.2 mg/dL TOTAL PROTEIN 7.4 6.4 - 8.3 g/dL eGFR 74.0 >60.0 mL/min/1.73m*2 CBC auto differential Collection Time: 12/06/24 11:57 AM Result Value Ref Range Auto WBC 13.0 (H) 3.6 - 10.7 10*3/uL RBC 3.50 (L) 4.40 - 5.90 10*6/uL Hemoglobin 9.0 (L) 13.0 - 18.0 g/dL Hematocrit 28.6 (L) 40.0 - 52.0 % MCV 81.7 77.0 - 99.0 fL MCH 25.7 (L) 26.0 - 34.0 pg MCHC 31.5 30.5 - 36.0 % RDW 16.9 (H) 11.5 - 15.0 % Platelets 681 (H) 140 - 440 10*3/uL MPV 8.8 (L) 9.0 - 12.7 fL nRBC 0.0 0.0 - 2.0 /100 WBCs Neutrophils Relative 77.0 38.0 - 82.0 % Lymphocytes Relative 11.4 (L) 15.0 - 45.0 % Monocytes Relative 8.6 5.0 - 13.0 % Eosinophils Relative 2.4 0.0 - 6.0 % Basophils Relative 0.3 0.0 - 2.0 % Immature Grans % 0.3 0.0 - 2.0 % Neutrophils Absolute 10.0 (H) 1.8 - 7.5 10*3/uL Lymphocytes Absolute 1.5 1.0 - 4.3 10*3/uL Monocytes Absolute 1.1 (H) 0.0 - 0.9 10*3/uL Eosinophils Absolute 0.3 0.0 - 0.5 10*3/uL Basophils Absolute 0.0 0.0 - 0.2 10*3/uL Immature Grans Absolute 0.0 <0.1 10*3/uL Sedimentation rate, automated Collection Time: 12/06/24 11:57 AM Result Value Ref Range Sed Rate 73 (H) 0 - 10 mm/hr C-reactive protein Collection Time: 12/06/24 11:57 AM Result Value Ref Range C REACTIVE PROTEIN 95.9 (H) <5.0 mg/L Complete Urinalysis Collection Time: 12/06/24 12:17 PM Result Value Ref Range Color, Urine Light Yellow Lt. Yellow Clarity, Urine Clear Clear pH, Urine 5.5 5.0 - 8.0 pH Leukocytes, Urine Negative Negative Gabe/uL Nitrite, Urine Negative Negative Protein, Urine Negative Negative mg/dL Glucose, Urine Normal Normal (<70) mg/dL Bilirubin, Urine Negative Negative mg/dL Ketones, Urine Negative Negative mg/dL Urobilinogen, Urine Normal Normal (0-1) mg/dL Blood, Urine Negative Negative mg/dL SPECIFIC GRAVITY OF URINE (NUMERIC) 1.016 1.005 - 1.030 Culture, Aerobic Bacteria with Gram Stain Collection Time: 12/06/24 12:18 PM Specimen: Hip, Left; Abscess Result Value Ref Range Culture Culture in progress Gram Stain Result (A) Few Polymorphonuclear leukocytes per low power field Gram Stain Result Rare Gram negative bacilli (A) Blood culture Site #2 - Suspected Infection Collection Time: 12/06/24 1:40 PM Specimen: Blood, Venous Result Value Ref Range Blood Culture Blood culture incubation started CT pelvis w IV contrast Final Result Impression: Large wound along the proximal posterior thigh with large abscess within the posterior compartment of the left upper thigh. There is also presumed cellulitis. No obvious acute cortical erosion. Please note, the marrow is not assessed on a CT examination. Report Dictated on Electronically Signed By: Tess Carter MD Electronically Signed Date/Time: 12/06/2024 1:29 PM EDT Final ED Course and MDM: In brief, Kevan La is a 49 y.o. male whose care was signed out to me by the outgoing provider. In brief, plan final signout was to transfer the patient to [facility] for further management of his gluteal abscess (more content not included)... [facility] ED Provider Note EMERGENCY DEPARTMENT ENCOUNTER Pt Name: Kevan La Birthdate 1975 Date of evaluation: 12/06/2024 ED Provider: Latrciia Schroeder DO CHIEF COMPLAINT Chief Complaint Patient presents with Wound Check HISTORY OF PRESENT ILLNESS (Location/Symptom, Timing/Onset, Context/Setting, Quality, Duration, Modifying Factors, Severity) Note limiting factors. I wore appropriate PPE for the entirety of this encounter. HPI Kevan La is a 49 y.o. who presents [facility] emergency department from [facility] with concern for left hip wound. Per records he has had a left hip wound and abscess for the past few months and recently had it drained at [facility]. He expresses concern for increasing pain, drainage for the past few days. He also reports that they determined he has a cancerous mass in that same location for which she is following at as well. Denies fever, chills, nausea, vomiting, abdominal pain. Nursing Notes were reviewed. Limitations to history: None Outside historians: None REVIEW OF SYSTEMS Review of Systems Pertinent positives and negatives as per HPI. PAST MEDICAL HISTORY No past medical history on file. SURGICAL HISTORY No past surgical history on file. CURRENT MEDICATIONS Discharge Medication List as of 12/07/2024 3:01 PM CONTINUE these medications which have NOT CHANGED Details cholecalciferol (Vitamin D3) 200 Unit tablet split tablet Take 10,000 Units by mouth daily., Historical Med ferrous sulfate 325 (65 Fe) MG EC tablet Take 1 tablet by mouth daily., Historical Med melatonin 3 MG tablet Take 1 tablet (3 mg) by mouth Nightly as needed for sleep., Starting 11/09/2024, No Print naloxone (Narcan) 0.4 MG/ML injection Infuse 1 mL (0.4 mg) into a venous catheter as needed for opioid reversal., Starting 11/09/2024, No Print ondansetron (Zofran) 4 MG/2ML injection Infuse 2 mL (4 mg) into a venous catheter every 6 hours as needed for nausea or vomiting., Starting 11/09/2024, No Print piperacillin-tazobac daley (Zosyn) IVPB 3.375 g in 50 mL (premix) Infuse 50 mL (3.375 g) into a venous catheter every 8 hours., Starting 11/09/2024, No Print vancomycin 1,000 mg in sodium chloride 0.9 % 250 mL IVPB Infuse 1,000 mg into a venous catheter every 12 hours., Starting 11/10/2024, No Print ALLERGIES Banana FAMILY HISTORY No family history on file. SOCIAL HISTORY Social History Socioeconomic History Marital status: Single Social Drivers of Health Financial Resource Strain: Medium Risk (12/07/2024) Received from [facility] Overall Financial Resource Strain (CARDIA) Difficulty of Paying Living Expenses: Somewhat hard Food Insecurity: No Food Insecurity (12/07/2024) Received from [facility] Hunger Vital Sign Worried About Running Out of Food in the Last Year: Never true Ran Out of Food in the Last Year: Never true Recent Concern: Food Insecurity - Food Insecurity Present (10/11/2024) Received from [facility] Hunger Vital Sign Worried About Running Out of Food in the Last Year: Sometimes true Ran Out of Food in the Last Year: Sometimes true Transportation Needs: No Transportation Needs (12/07/2024) Received from [facility] PRAPARE - Transportation Lack of Transportation (Medical): No Lack of Transportation (Non-Medical): No Intimate Partner Violence: Not At Risk (12/07/2024) Received from [facility] Humiliation, Afraid, Rape, and Kick questionnaire Fear of Current or Ex-Partner: No Emotionally Abused: No Physically Abused: No Sexually Abused: No Housing Stability: High Risk (12/07/2024) Received from [facility] Housing Stability Vital Sign Unable to Pay for Housing in the Last Year: Yes Number of Times Moved in the Last Year: 1 Homeless in the Last Year: No SCREENINGS Kofi Coma Scale Best Eye Response: Spontaneous Best Verbal Response: Oriented Best Motor Response: Follows commands Kofi Coma Scale Score: 15 PHYSICAL EXAM ED Triage Vitals [12/06/24 1109] Temp Pulse Resp BP 36.8 ?C (98.3 ?F) -- -- -- SpO2 Temp src Heart Rate Source Patient Position -- -- -- -- BP Location FiO2 (%) -- -- Physical Exam Vitals reviewed. Constitutional: General: He is not in acute distress. Appearance: He is ill-appearing (Chronically). Cardiovascular: Rate and Rhythm: Normal rate. Pulmonary: Effort: Pulmonary effort is normal. Abdominal: Palpations: Abdomen is soft. Tenderness: There is no abdominal tenderness. Skin: Comments: As pictured below Neurological: Mental Status: He is alert and oriented to person, place, and time. DIAGNOSTIC RESULTS RADIOLOGY (Per Emergency Physician): Interpretation per the Radiologist below, if available at the time of this note: CT pelvis w IV contrast Final Result Impression: (more content not included)... Normal [facility] ED Provider Note I was signed out this patient by the outgoing provider. I was instructed to follow-up transferred to for ongoing management of his chronic wound. Unfortunately this did not occur throughout the evening and so we felt it was reasonable to have the patient admitted medically until transfer could be arranged. The patient was admitted medically to the hospitalist service in stable condition. Please see subsequent provider notes for the manger of patient's hospital course and ultimate disposition. Fer Hull MD Resident 12/08/24 0656 Normal [facility] ESR (Bld) [Velocity]Ordered By: Philly Lal on 12-06-2024 Interpretation and review of laboratory results Abnormal [facility] Laboratory - Chemistry and C hemistry - challengeOrdered By: Oneida Churchill on 12-06-2024 CRP [Mass/Vol] 95.9 mg/L High NINF - 5.0 mg/L [facility] Laboratory - Hematology and Cell countsOrdered By: Philly Lal on 12-06-2024 ESR (Bld) [Velocity] 73 mm/h High [facility] No Panel Informationon 12-06 P [place] 44 degrees [facility] IN Interval 142 ms [facility] QRS [place] 55 degrees [facility] QRSD Interval 94 ms [facility] QT Interval 397 ms [facility] QTC Interval 390 ms [facility] T Wave [place] 56 degrees [facility] Sinus bradycardia Electronically Signed On 12-06-2024 11:47:13 EDT by Fer Hollins CV Fer Nix MD - 12/06/2024 IMPRESSION: Sinus bradycardia Electronically Signed On 12-06-2024 11:47:13 EDT by Fer Hollins [facility] Progress Noteon 12-06-2024 Progress Note Culture result reviewed. No further treatment needed. Normal [facility] SEDIMENTATION RATE, AUTOMATE Don 12-06-2024 SEDIMENTATION RATE, ERYTHROCYTE 73 mm/hr High 0-10 [facility] Comment on above: Performed By: #### L [id number] ####Gambling Broker: JAZLYN JIMENEZ ([phone])[facility] ([address] Urinalysis complete panel (U )on 12-06-2024 Bilirubin Ql (U) Negative Negative mg/dL [facility] Clarity (U) Clear Clear [facility] Color (U) Light Yellow Lt. Yellow [facility] Glucose Ql (U) Normal Normal (<70) mg/dL [facility] Hemoglobin Ql (U) Negative Negative mg/dL [facility] Interpretation and review of laboratory results Normal [facility] Ketones (U) [Mass/Vol] Negative Negat sulema mg/dL [facility] Leukocyte esterase Test strip Ql (U) Negative Negative Gabe/uL [facility] Nitrite Ql (U) Negative Negative [facility] pH (U) 5.5 [pH] 5.0 - 8.0 pH [facility] Protein (U) [Mass/Vol] Negative Negat sulema mg/dL [facility] Specific gravity (U) [Rel density] 1.016 1.005 - 1.030 [facility] Urobilinogen (U) [Mass/Vol] Normal Normal (0-1) mg/dL [facility] Vital signson 12-06-2024 Heart rate 58 /min bpm [facility] Anion gap in Serum or Plasma Ordered By: Julio Nolasco on 12-04-2024 Anion gap [Moles/Vol] 11 mmol/L 5-[address] [facility] BUN/creatinine ratioOrdered By: Julio Nolasco on 12-04-2024 Urea nitrogen/Creatinine [Mass ratio] 11.5 mg/mg 10- [facility] Carbon dioxide, total [Moles /volume] in Central venous bloodOrdered By: Julio Nolasco on 12-04-2024 CO2 [Moles/Vol] 23.5 mmol/L 21.0-32.0 [facility] Chloride assayOrdered By: nicholas Nolasco on 12-04-2024 Chloride [Moles/Vol] 104 mmol/L 98-108 [facility] GFR/1.73 sq M.predicted yobany g non-blacks MDRD (S/P/Bld) [Vol rate/Area]Ordered By: Julio Nolasco on 12-04-2024 Estimated GFR (MDRD) Non-Af Amer 65 >60 [facility] Comment on above: mL/min/1.73m2 CKD-EP I Creatinine Equation (2020) Potassium (Unsp spec) [Mass/ Vol]Ordered By: Julio Nolasco on 12-04-2024 Potassium [Moles/Vol] 4.3 mmol/L 3.3-5.[address] [facility] Serum creatinine measurement (mass/volume)Ordered By: Julio Nolasco on 12-04-2024 Creatinine [Mass/Vol] 1.32 mg/dL High 0.70-1.[address] [facility] Serum glucose measurement (m ass/volume)Ordered By: Julio Nolasco on 12-04-2024 Glucose [Mass/Vol] 105 mg/dL High 70-99 [facility] Serum or plasma calcium mervat urement (mass/volume)Ordered By: Julio Nolasco on 12-04-2024 Calcium [Mass/Vol] 10.7 mg/dL 7.6-11.0 [facility] Serum or plasma urea nitroge n measurement (mass/volume)Ordered By: Julio Nolasco on 12-04-2024 Urea nitrogen [Mass/Vol] 15 mg/dL - [facility] Sodium levelOrdered By: William Nolasco on 12-04-2024 Sodium [Moles/Vol] 139 mmol/L 133-145 [facility] CBC W Auto Differential pane l (Bld)on 11-27-2024 Basophils (Bld) [#/Vol] 0.09 10*3/uL [facility] Basophils/100 WBC (Bld) 0.7 % 0.0 - 2.0 % [facility] Eosinophils (Bld) [#/Vol] 0.58 10*3/uL [facility] Eosinophils/100 WBC (Bld) 4.7 % 0.0 - 6.0 % [facility] Erythrocyte distribution width (RBC) [Ratio] 16.4 % High 11.5 - 14.5 % [facility] Hematocrit (Bld) [Volume fraction] 25 % Low 41.0 - 52.0 % [facility] Hemoglobin (Bld) [Mass/Vol] 7.9 g/dL Low 13.5 - 17.5 g/dL [facility] Immature granulocytes (Bld) [#/Vol] 0.04 10*3/uL [facility] Immature granulocytes/100 WBC (Bld) 0.3 % 0.0 - 0.9 % [facility] Interpretation and review of laboratory results Abnormal [facility] Lymphocytes (Bld) [#/Vol] 1.78 10*3/uL [facility] Lymphocytes/100 WBC (Bld) 14.5 % 13.0 - 44.0 % [facility] MCH (RBC) [Entitic mass] 26.7 pg 26. 0 - 34.[address] [facility] MCHC (RBC) [Mass/Vol] 31.6 g/dL Low 32.0 - 36.0 g/dL [facility] MCV (RBC) [Entitic vol] 85 fL 80 - [address] [facility] Monocytes (Bld) [#/Vol] 0.92 10*3/uL [facility] Monocytes/100 WBC (Bld) 7.5 % 2.0 - 10.0 % [facility] Neutrophils (Bld) [#/Vol] 8.88 10*3/uL High [facility] Neutrophils/100 WBC (Bld) 72.3 % 40.0 - 80.0 % [facility] Nucleated RBC/100 WBC (Bld) [Ratio] 0 % [facility] Platelets (Bld) [#/Vol] 715 10*3/uL High [facility] RBC (Bld) [#/Vol] 2.96 10*6/uL Low Un[facility] WBC (Bld) [#/Vol] 12.3 10*3/uL High [facility] Magnesiumon 11-27-2024 Magnesium [Mass/Vol] 1.75 mg/dL 1.60 - 2.40 mg/dL [facility] Magnesium [Mass/Vol]on 11-27 Interpretation and review of laboratory results Normal [facility] No Panel Informationon 11-27 [facility] Renal function 2000 panelon 11-27-2024 Albumin BCP dye [Mass/Vol] 3.2 g/dL Low 3.4 - 5.0 g/dL [facility] Anion gap [Moles/Vol] 14 mmol/L 10 - 2 0 mmol/L [facility] Calcium [Mass/Vol] 9.5 mg/dL 8.6 - 10. 6 mg/dL [facility] Chloride [Moles/Vol] 99 mmol/L 98 - 10 7 mmol/L [facility] CO2 [Moles/Vol] 27 mmol/L 21 - 32 mmol/L [facility] Creatinine [Mass/Vol] 1.38 mg/dL High 0.50 - 1.30 mg/dL [facility] GFR/1.73 sq M.predicted among non-blacks MDRD (S/P/Bld) [Vol rate/Area] 62 mL/min/{1.73_m2} - PINF [facility] Glucose [Mass/Vol] 139 mg/dL High 74 - 99 mg/dL Uni [facility] Interpretation and review of laboratory results Abnormal [facility] Phosphate [Mass/Vol] 2.5 mg/dL 2.5 - 4 .9 mg/dL [facility] Potassium [Moles/Vol] 4 mmol/L 3.5 - 5.3 mmol/L [facility] Sodium [Moles/Vol] 136 mmol/L 136 - 145 mmol/L [facility] Urea nitrogen [Mass/Vol] 10 mg/dL 6 - 23 mg/d L [facility] Bacteria identified Cx Nom ( Bld)on 11-26-2024 Interpretation and review of laboratory results Normal [facility] CBC W Auto Differential pane l (Bld)on 11-26-2024 Basophils (Bld) [#/Vol] 0.1 10*3/uL [facility] Basophils/100 WBC (Bld) 0.8 % 0.0 - 2.0 % [facility] Eosinophils (Bld) [#/Vol] 0.51 10*3/uL [facility] Eosinophils/100 WBC (Bld) 4.2 % 0.0 - 6.0 % [facility] Erythrocyte distribution width (RBC) [Ratio] 16.2 % High 11.5 - 14.5 % [facility] Hematocrit (Bld) [Volume fraction] 26.6 % Low 41.0 - 52.0 % [facility] Hemoglobin (Bld) [Mass/Vol] 8.3 g/dL Low 13.5 - 17.5 g/dL [facility] Immature granulocytes (Bld) [#/Vol] 0.05 10*3/uL [facility] Immature granulocytes/100 WBC (Bld) 0.4 % 0.0 - 0.9 % [facility] Interpretation and review of laboratory results Abnormal [facility] Lymphocytes (Bld) [#/Vol] 1.6 10*3/uL [facility] Lymphocytes/100 WBC (Bld) 13.3 % 13.0 - 44.0 % [facility] MCH (RBC) [Entitic mass] 26.4 pg 26. 0 - 34.[address] [facility] MCHC (RBC) [Mass/Vol] 31.2 g/dL Low 32.0 - 36.0 g/dL [facility] MCV (RBC) [Entitic vol] 85 fL 80 - [address] [facility] Monocytes (Bld) [#/Vol] 1.2 10*3/uL High [facility] Monocytes/100 WBC (Bld) 9.9 % 2.0 - 10.0 % [facility] Neutrophils (Bld) [#/Vol] 8.61 10*3/uL High [facility] Neutrophils/100 WBC (Bld) 71.4 % 40.0 - 80.0 % [facility] Nucleated RBC/100 WBC (Bld) [Ratio] 0 % [facility] Platelets (Bld) [#/Vol] 780 10*3/uL High [facility] RBC (Bld) [#/Vol] 3.14 10*6/uL Low [facility] WBC (Bld) [#/Vol] 12.1 10*3/uL High [facility] Laboratory - Microbiology an d Antimicrobial susceptibilityon 11-26-2024 Bacteria identified Cx Nom (Bld) No growth at 4 days - FINAL REPORT [facility] Magnesiumon 11-26-2024 Magnesium [Mass/Vol] 2.07 mg/dL 1.60 - 2.40 mg/dL [facility] Magnesium [Mass/Vol]on 11-26 Interpretation and review of laboratory results Normal [facility] No Panel Informationon 11-26 [facility] Renal function 2000 panelon 11-26-2024 Albumin BCP dye [Mass/Vol] 3.4 g/dL 3.4 - 5.0 g/dL [facility] Anion gap [Moles/Vol] 17 mmol/L 10 - 2 0 mmol/L [facility] Calcium [Mass/Vol] 9.2 mg/dL 8.6 - 10. 6 mg/dL [facility] Chloride [Moles/Vol] 101 mmol/L 98 - 10 7 mmol/L [facility] CO2 [Moles/Vol] 24 mmol/L 21 - 32 mmol/L [facility] Creatinine [Mass/Vol] 1.22 mg/dL 0.50 - 1.30 mg/dL [facility] GFR/1.73 sq M.predicted among non-blacks MDRD (S/P/Bld) [Vol rate/Area] 72 mL/min/{1.73_m2} - PINF [facility] Glucose [Mass/Vol] 110 mg/dL High 74 - 99 mg/dL Uni [facility] Interpretation and review of laboratory results Abnormal [facility] Phosphate [Mass/Vol] 2.9 mg/dL 2.5 - 4 .9 mg/dL [facility] Potassium [Moles/Vol] 4.4 mmol/L 3.5 - 5.3 mmol/L [facility] Sodium [Moles/Vol] 138 mmol/L 136 - 145 mmol/L [facility] Urea nitrogen [Mass/Vol] 10 mg/dL 6 - 23 mg/d L [facility] Bacteria identified Cx Nom ( Unsp spec)on 11-25-2024 Interpretation and review of laboratory results Abnormal [facility] Work Phone: Microscopic observation Gram stain Nom (Unsp spec) (1+) Rare Polymorphonuclear leukocytes Abnormal [facility] Work Phone: Microscopic observation Gram stain Nom (Unsp spec) (4+) Abundant Mixed Gram positive and Gram negative bacteria Abnormal [facility] Work Phone: [facility] Work Phone: CBC W Auto Differential pane l (Bld)on 11-25-2024 Basophils (Bld) [#/Vol] 0.08 10*3/uL [facility] Basophils/100 WBC (Bld) 0.8 % 0.0 - 2.0 % [facility] Eosinophils (Bld) [#/Vol] 0.49 10*3/uL [facility] Eosinophils/100 WBC (Bld) 5.2 % 0.0 - 6.0 % [facility] Erythrocyte distribution width (RBC) [Ratio] 16.5 % High 11.5 - 14.5 % [facility] Hematocrit (Bld) [Volume fraction] 26.3 % Low 41.0 - 52.0 % [facility] Hemoglobin (Bld) [Mass/Vol] 8.1 g/dL Low 13.5 - 17.5 g/dL [facility] Immature granulocytes (Bld) [#/Vol] 0.03 10*3/uL [facility] Immature granulocytes/100 WBC (Bld) 0.3 % 0.0 - 0.9 % [facility] Interpretation and review of laboratory results Abnormal [facility] Lymphocytes (Bld) [#/Vol] 1.75 10*3/uL [facility] Lymphocytes/100 WBC (Bld) 18.5 % 13.0 - 44.0 % [facility] MCH (RBC) [Entitic mass] 26.5 pg 26. 0 - 34.[address] [facility] MCHC (RBC) [Mass/Vol] 30.8 g/dL Low 32.0 - 36.0 g/dL [facility] MCV (RBC) [Entitic vol] 86 fL 80 - [address] [facility] Monocytes (Bld) [#/Vol] 1.08 10*3/uL High [facility] Monocytes/100 WBC (Bld) 11.4 % 2.0 - 10.0 % [facility] Neutrophils (Bld) [#/Vol] 6.01 10*3/uL [facility] Neutrophils/100 WBC (Bld) 63.8 % 40.0 - 80.0 % [facility] Nucleated RBC/100 WBC (Bld) [Ratio] 0 % [facility] Platelets (Bld) [#/Vol] 747 10*3/uL High [facility] RBC (Bld) [#/Vol] 3.06 10*6/uL [facility] WBC (Bld) [#/Vol] 9.4 10*3/uL [facility] Magnesiumon 11-25-2024 Magnesium [Mass/Vol] 1.95 mg/dL 1.60 - 2.40 mg/dL [facility] Magnesium [Mass/Vol]on 11-25 Interpretation and review of laboratory results Normal [facility] No Panel Informationon 11-25 [facility] Renal function 2000 panelon 11-25-2024 Albumin BCP dye [Mass/Vol] 3.1 g/dL Low 3.4 - 5.0 g/dL [facility] Anion gap [Moles/Vol] 14 mmol/L 10 - 2 0 mmol/L [facility] Calcium [Mass/Vol] 9 mg/dL 8.6 - 10. 6 mg/dL [facility] Chloride [Moles/Vol] 100 mmol/L 98 - 10 7 mmol/L [facility] CO2 [Moles/Vol] 27 mmol/L 21 - 32 mmol/L [facility] Creatinine [Mass/Vol] 1.29 mg/dL 0.50 - 1.30 mg/dL [facility] GFR/1.73 sq M.predicted among non-blacks MDRD (S/P/Bld) [Vol rate/Area] 67 mL/min/{1.73_m2} - PINF [facility] Glucose [Mass/Vol] 101 mg/dL High 74 - 99 mg/[facility] Interpretation and review of laboratory results Abnormal [facility] Phosphate [Mass/Vol] 2.7 mg/dL 2.5 - 4 .9 mg/dL [facility] Potassium [Moles/Vol] 3.6 mmol/L 3.5 - 5.3 mmol/L [facility] Sodium [Moles/Vol] 137 mmol/L 136 - 145 mmol/L [facility] Urea nitrogen [Mass/Vol] 10 mg/dL 6 - 23 mg/d L [facility] Tissue/Wound Culture/Smearon 11-25-2024 Bacteria identified Cx Nom (Unsp spec) (4+) Abundant Mixed Gram-Positive and Gram-Negative Bacteria [facility] Work Phone: Bacteria identified Cx Nom ( Unsp spec)on 11-24-2024 Beta lactamase organism identified Nom (Isol) Positive [facility] Work Phone: Interpretation and review of laboratory results Abnormal [facility] Work Phone: Microscopic observation Gram stain Nom (Unsp spec) (3+) Moderate Polymorphonuclear leukocytes Abnormal [facility] Work Phone: Microscopic observation Gram stain Nom (Unsp spec) Negative Abnormal [facility] Work Phone: [facility] Work Phone: Bacteria identified Cx Nom ( Unsp spec)Ordered By: Mari Monique on 11-24-2024 Interpretation and review of laboratory results Abnormal [facility] Microscopic observation Gram stain Nom (Unsp spec) No polymorphonuclear leukocytes seen Abnormal [facility] Microscopic observation Gram stain Nom (Unsp spec) (4+) Abundant Mixed Gram positive and Gram negative bacteria Abnormal [facility] CBC W Auto Differential pane l (Bld)on 11-24-2024 Basophils (Bld) [#/Vol] 0.1 10*3/uL [facility] Basophils/100 WBC (Bld) 0.9 % 0.0 - 2.0 % [facility] Eosinophils (Bld) [#/Vol] 0.52 10*3/uL [facility] Eosinophils/100 WBC (Bld) 4.9 % 0.0 - 6.0 % [facility] Erythrocyte distribution width (RBC) [Ratio] 16.1 % High 11.5 - 14.5 % [facility] Hematocrit (Bld) [Volume fraction] 28.6 % Low 41.0 - 52.0 % [facility] Hemoglobin (Bld) [Mass/Vol] 8.7 g/dL Low 13.5 - 17.5 g/dL [facility] Immature granulocytes (Bld) [#/Vol] 0.03 10*3/uL [facility] Immature granulocytes/100 WBC (Bld) 0.3 % 0.0 - 0.9 % [facility] Interpretation and review of laboratory results Abnormal [facility] Lymphocytes (Bld) [#/Vol] 1.84 10*3/uL [facility] Lymphocytes/100 WBC (Bld) 17.2 % 13.0 - 44.0 % [facility] MCH (RBC) [Entitic mass] 26.4 pg 26. 0 - 34.[address] [facility] MCHC (RBC) [Mass/Vol] 30.4 g/dL Low 32.0 - 36.0 g/dL [facility] MCV (RBC) [Entitic vol] 87 fL 80 - [address] [facility] Monocytes (Bld) [#/Vol] 1.11 10*3/uL High [facility] Monocytes/100 WBC (Bld) 10.4 % 2.0 - 10.0 % [facility] Neutrophils (Bld) [#/Vol] 7.12 10*3/uL [facility] Neutrophils/100 WBC (Bld) 66.3 % 40.0 - 80.0 % [facility] Nucleated RBC/100 WBC (Bld) [Ratio] 0 % [facility] Platelets (Bld) [#/Vol] 818 10*3/uL High [facility] RBC (Bld) [#/Vol] 3.29 10*6/uL [facility] WBC (Bld) [#/Vol] 10.7 10*3/uL [facility] Magnesiumon 11-24-2024 Magnesium [Mass/Vol] 1.88 mg/dL 1.60 - 2.40 mg/dL [facility] Magnesium [Mass/Vol]on 11-24 Interpretation and review of laboratory results Normal [facility] No Panel Informationon 11-24 [facility] Renal function 2000 panelon 11-24-2024 Albumin BCP dye [Mass/Vol] 3.2 g/dL Low 3.4 - 5.0 g/dL [facility] Anion gap [Moles/Vol] 11 mmol/L 10 - 2 0 mmol/L [facility] Calcium [Mass/Vol] 9.1 mg/dL 8.6 - 10. 6 mg/dL [facility] Chloride [Moles/Vol] 99 mmol/L 98 - 10 7 mmol/L [facility] CO2 [Moles/Vol] 30 mmol/L 21 - 32 mmol/L [facility] Creatinine [Mass/Vol] 1.38 mg/dL High 0.50 - 1.30 mg/dL [facility] GFR/1.73 sq M.predicted among non-blacks MDRD (S/P/Bld) [Vol rate/Area] 62 mL/min/{1.73_m2} - PINF [facility] Glucose [Mass/Vol] 109 mg/dL High 74 - 99 mg/dL [facility] Interpretation and review of laboratory results Abnormal [facility] Phosphate [Mass/Vol] 3.3 mg/dL 2.5 - 4 .9 mg/dL [facility] Potassium [Moles/Vol] 3.8 mmol/L 3.5 - 5.3 mmol/L [facility] Sodium [Moles/Vol] 136 mmol/L 136 - 145 mmol/L [facility] Urea nitrogen [Mass/Vol] 15 mg/dL 6 - 23 mg/d L [facility] Tissue/Wound Culture/Smearon 11-24-2024 Bacteria identified Cx Nom (Unsp spec) Negative [facility] Work Phone: Bacteria identified Cx Nom (Unsp spec) (4+) Abundant Mixed Anaerobic Bacteria [facility] Work Phone: Tissue/Wound Culture/SmearOr dered By: Mari Monique on 11-24-2024 Bacteria identified Cx Nom (Unsp spec) (4+) Abundant Mixed Gram-Positive and Gram-Negative Bacteria [facility] CBC W Auto Differential pane l (Bld)on 11-23-2024 Basophils (Bld) [#/Vol] 0.11 10*3/uL High [facility] Basophils/100 WBC (Bld) 0.8 % 0.0 - 2.0 % [facility] Eosinophils (Bld) [#/Vol] 0.5 10*3/uL [facility] Eosinophils/100 WBC (Bld) 3.5 % 0.0 - 6.0 % [facility] Erythrocyte distribution width (RBC) [Ratio] 16.3 % High 11.5 - 14.5 % [facility] Hematocrit (Bld) [Volume fraction] 30.1 % Low 41.0 - 52.0 % [facility] Hemoglobin (Bld) [Mass/Vol] 9.4 g/dL Low 13.5 - 17.5 g/dL [facility] Immature granulocytes (Bld) [#/Vol] 0.08 10*3/uL [facility] Immature granulocytes/100 WBC (Bld) 0.6 % 0.0 - 0.9 % [facility] Interpretation and review of laboratory results Abnormal [facility] Lymphocytes (Bld) [#/Vol] 1.65 10*3/uL [facility] Lymphocytes/100 WBC (Bld) 11.5 % 13.0 - 44.0 % [facility] MCH (RBC) [Entitic mass] 26.8 pg 26. 0 - 34.[address] [facility] MCHC (RBC) [Mass/Vol] 31.2 g/dL Low 32.0 - 36.0 g/dL [facility] MCV (RBC) [Entitic vol] 86 fL 80 - [address] [facility] Monocytes (Bld) [#/Vol] 1.59 10*3/uL High [facility] Monocytes/100 WBC (Bld) 11.1 % 2.0 - 10.0 % [facility] Neutrophils (Bld) [#/Vol] 10.38 10*3/uL High [facility] Neutrophils/100 WBC (Bld) 72.5 % 40.0 - 80.0 % [facility] Nucleated RBC/100 WBC (Bld) [Ratio] 0 % [facility] Platelets (Bld) [#/Vol] 844 10*3/uL High [facility] RBC (Bld) [#/Vol] 3.51 10*6/uL Low Un[facility] WBC (Bld) [#/Vol] 14.3 10*3/uL High [facility] Magnesiumon 11-23-2024 Magnesium [Mass/Vol] 1.94 mg/dL 1.60 - 2.40 mg/dL [facility] Magnesium [Mass/Vol]on 11-23 Interpretation and review of laboratory results Normal [facility] No Panel Informationon 11-23 [facility] Renal function 2000 panelon 11-23-2024 Albumin BCP dye [Mass/Vol] 3.4 g/dL 3.4 - 5.0 g/dL [facility] Anion gap [Moles/Vol] 15 mmol/L 10 - 2 0 mmol/L [facility] Calcium [Mass/Vol] 9.3 mg/dL 8.6 - 10. 6 mg/dL [facility] Chloride [Moles/Vol] 99 mmol/L 98 - 10 7 mmol/L [facility] CO2 [Moles/Vol] 25 mmol/L 21 - 32 mmol/L [facility] Creatinine [Mass/Vol] 1.36 mg/dL High 0.50 - 1.30 mg/dL [facility] GFR/1.73 sq M.predicted among non-blacks MDRD (S/P/Bld) [Vol rate/Area] 63 mL/min/{1.73_m2} - PINF [facility] Glucose [Mass/Vol] 101 mg/dL High 74 - 99 mg/dL [facility] Interpretation and review of laboratory results Abnormal [facility] Phosphate [Mass/Vol] 3 mg/dL 2.5 - 4 .9 mg/dL [facility] Potassium [Moles/Vol] 4 mmol/L 3.5 - 5.3 mmol/L [facility] Sodium [Moles/Vol] 135 mmol/L Low 136 - 145 mmol/L [facility] Urea nitrogen [Mass/Vol] 14 mg/dL 6 - 23 mg/d L [facility] CBC W Auto Differential pane l (Bld)on 11-22-2024 Basophils (Bld) [#/Vol] 0.09 10*3/uL [facility] Basophils/100 WBC (Bld) 0.7 % 0.0 - 2.0 % [facility] Eosinophils (Bld) [#/Vol] 0.36 10*3/uL [facility] Eosinophils/100 WBC (Bld) 2.7 % 0.0 - 6.0 % [facility] Erythrocyte distribution width (RBC) [Ratio] 16 % High 11.5 - 14.5 % [facility] Hematocrit (Bld) [Volume fraction] 27.8 % Low 41.0 - 52.0 % [facility] Hemoglobin (Bld) [Mass/Vol] 8.7 g/dL Low 13.5 - 17.5 g/dL [facility] Immature granulocytes (Bld) [#/Vol] 0.04 10*3/uL [facility] Immature granulocytes/100 WBC (Bld) 0.3 % 0.0 - 0.9 % [facility] Interpretation and review of laboratory results Abnormal [facility] Lymphocytes (Bld) [#/Vol] 1.44 10*3/uL [facility] Lymphocytes/100 WBC (Bld) 10.7 % 13.0 - 44.0 % [facility] MCH (RBC) [Entitic mass] 26.9 pg 26. 0 - 34.[address] [facility] MCHC (RBC) [Mass/Vol] 31.3 g/dL Low 32.0 - 36.0 g/dL [facility] MCV (RBC) [Entitic vol] 86 fL 80 - [address] [facility] Monocytes (Bld) [#/Vol] 1.28 10*3/uL High [facility] Monocytes/100 WBC (Bld) 9.5 % 2.0 - 10.0 % [facility] Neutrophils (Bld) [#/Vol] 10.28 10*3/uL High [facility] Neutrophils/100 WBC (Bld) 76.1 % 40.0 - 80.0 % [facility] Nucleated RBC/100 WBC (Bld) [Ratio] 0 % [facility] Platelets (Bld) [#/Vol] 780 10*3/uL High [facility] RBC (Bld) [#/Vol] 3.24 10*6/uL Low [facility] WBC (Bld) [#/Vol] 13.5 10*3/uL High [facility] Magnesiumon 11-22-2024 Magnesium [Mass/Vol] 2 mg/dL 1.60 - 2.40 mg/dL [facility] Magnesium [Mass/Vol]on 11-22 Interpretation and review of laboratory results Normal [facility] No Panel Informationon 11-22 [facility] Renal function 2000 panelon 11-22-2024 Albumin BCP dye [Mass/Vol] 3.4 g/dL 3.4 - 5.0 g/dL [facility] Anion gap [Moles/Vol] 13 mmol/L 10 - 2 0 mmol/L [facility] Calcium [Mass/Vol] 9.3 mg/dL 8.6 - 10. 6 mg/dL [facility] Chloride [Moles/Vol] 100 mmol/L 98 - 10 7 mmol/L [facility] CO2 [Moles/Vol] 25 mmol/L 21 - 32 mmol/L [facility] Creatinine [Mass/Vol] 1.2 mg/dL 0.50 - 1.30 mg/dL [facility] GFR/1.73 sq M.predicted among non-blacks MDRD (S/P/Bld) [Vol rate/Area] 73 mL/min/{1.73_m2} - PINF [facility] Glucose [Mass/Vol] 105 mg/dL High 74 - 99 mg/dL Uni [facility] Interpretation and review of laboratory results Abnormal [facility] Phosphate [Mass/Vol] 2.5 mg/dL 2.5 - 4 .9 mg/dL [facility] Potassium [Moles/Vol] 4.1 mmol/L 3.5 - 5.3 mmol/L [facility] Sodium [Moles/Vol] 134 mmol/L Low 136 - 145 mmol/L [facility] Urea nitrogen [Mass/Vol] 15 mg/dL 6 - 23 mg/d L [facility] CBC W Auto Differential pane l (Bld)on 11-21-2024 Basophils (Bld) [#/Vol] 0.09 10*3/uL [facility] Basophils/100 WBC (Bld) 0.7 % 0.0 - 2.0 % [facility] Eosinophils (Bld) [#/Vol] 0.38 10*3/uL [facility] Eosinophils/100 WBC (Bld) 3.1 % 0.0 - 6.0 % [facility] Erythrocyte distribution width (RBC) [Ratio] 16 % High 11.5 - 14.5 % [facility] Hematocrit (Bld) [Volume fraction] 26.9 % Low 41.0 - 52.0 % [facility] Hemoglobin (Bld) [Mass/Vol] 8.6 g/dL Low 13.5 - 17.5 g/dL [facility] Immature granulocytes (Bld) [#/Vol] 0.04 10*3/uL [facility] Immature granulocytes/100 WBC (Bld) 0.3 % 0.0 - 0.9 % [facility] Interpretation and review of laboratory results Abnormal [facility] Lymphocytes (Bld) [#/Vol] 1.38 10*3/uL [facility] Lymphocytes/100 WBC (Bld) 11.1 % 13.0 - 44.0 % [facility] MCH (RBC) [Entitic mass] 27.2 pg 26. 0 - 34.[address] [facility] MCHC (RBC) [Mass/Vol] 32 g/dL 32.0 - 36.0 g/dL [facility] MCV (RBC) [Entitic vol] 85 fL 80 - [address] [facility] Monocytes (Bld) [#/Vol] 1.2 10*3/uL High [facility] Monocytes/100 WBC (Bld) 9.7 % 2.0 - 10.0 % [facility] Neutrophils (Bld) [#/Vol] 9.33 10*3/uL High [facility] Neutrophils/100 WBC (Bld) 75.1 % 40.0 - 80.0 % [facility] Nucleated RBC/100 WBC (Bld) [Ratio] 0 % [facility] Platelets (Bld) [#/Vol] 745 10*3/uL High [facility] RBC (Bld) [#/Vol] 3.16 10*6/uL Low [facility] WBC (Bld) [#/Vol] 12.4 10*3/uL High [facility] Lubeck/lambda free, serum; Cl [facility]; KLFRS - Miscellaneous TestOrdered By: Deborah Youngblood on 11-21-2024 Scan Result See Scanned Result [facility] Magnesiumon 11-21-2024 Magnesium [Mass/Vol] 1.86 mg/dL 1.60 - 2.40 mg/dL [facility] Magnesium [Mass/Vol]on 11-21 Interpretation and review of laboratory results Normal [facility] No Panel Informationon 11-21 [facility] Renal function 2000 panelon 11-21-2024 Albumin BCP dye [Mass/Vol] 3.2 g/dL Low 3.4 - 5.0 g/dL [facility] Anion gap [Moles/Vol] 16 mmol/L 10 - 2 0 mmol/L [facility] Calcium [Mass/Vol] 9.3 mg/dL 8.6 - 10. 6 mg/dL [facility] Chloride [Moles/Vol] 102 mmol/L 98 - 10 7 mmol/L [facility] CO2 [Moles/Vol] 23 mmol/L 21 - 32 mmol/L [facility] Creatinine [Mass/Vol] 1.29 mg/dL 0.50 - 1.30 mg/dL [facility] GFR/1.73 sq M.predicted among non-blacks MDRD (S/P/Bld) [Vol rate/Area] 67 mL/min/{1.73_m2} - PINF [facility] Glucose [Mass/Vol] 96 mg/dL 74 - 99 mg/[facility] Interpretation and review of laboratory results Abnormal [facility] Phosphate [Mass/Vol] 2.7 mg/dL 2.5 - 4 .9 mg/dL [facility] Potassium [Moles/Vol] 4 mmol/L 3.5 - 5.3 mmol/L [facility] Sodium [Moles/Vol] 137 mmol/L 136 - 145 mmol/L [facility] Urea nitrogen [Mass/Vol] 14 mg/dL 6 - 23 mg/d L [facility] CBC W Auto Differential pane l (Bld)on 11-20-2024 Basophils (Bld) [#/Vol] 0.08 10*3/uL [facility] Basophils/100 WBC (Bld) 0.7 % 0.0 - 2.0 % [facility] Eosinophils (Bld) [#/Vol] 0.45 10*3/uL [facility] Eosinophils/100 WBC (Bld) 4 % 0.0 - 6.0 % [facility] Erythrocyte distribution width (RBC) [Ratio] 16.3 % High 11.5 - 14.5 % [facility] Hematocrit (Bld) [Volume fraction] 28.4 % Low 41.0 - 52.0 % [facility] Hemoglobin (Bld) [Mass/Vol] 8.6 g/dL Low 13.5 - 17.5 g/dL [facility] Immature granulocytes (Bld) [#/Vol] 0.05 10*3/uL [facility] Immature granulocytes/100 WBC (Bld) 0.4 % 0.0 - 0.9 % [facility] Interpretation and review of laboratory results Abnormal [facility] Lymphocytes (Bld) [#/Vol] 1.78 10*3/uL [facility] Lymphocytes/100 WBC (Bld) 15.6 % 13.0 - 44.0 % [facility] MCH (RBC) [Entitic mass] 26.9 pg 26. 0 - 34.[address] [facility] MCHC (RBC) [Mass/Vol] 30.3 g/dL Low 32.0 - 36.0 g/dL [facility] MCV (RBC) [Entitic vol] 89 fL 80 - [address] [facility] Monocytes (Bld) [#/Vol] 1.18 10*3/uL [facility] Monocytes/100 WBC (Bld) 10.4 % 2.0 - 10.0 % [facility] Neutrophils (Bld) [#/Vol] 7.84 10*3/uL [facility] Neutrophils/100 WBC (Bld) 68.9 % 40.0 - 80.0 % [facility] Nucleated RBC/100 WBC (Bld) [Ratio] 0 % [facility] Platelets (Bld) [#/Vol] 771 10*3/uL [facility] RBC (Bld) [#/Vol] 3.2 10*6/uL [facility] WBC (Bld) [#/Vol] 11.4 10*3/uL [facility] Dermatopathology- DERM LABOr dered By: James Bustamante on 11-20-2024 Laboratory comment [facility] (Report) [id number] bGFuZzEwMzNcZnRuYmpc bLAeLSydejLnCCizv5Lw Z0GnVfSvYJaoymPtNFPg GbqespuoIRZlFDE2omKy CSKlDJkjEAMjQNnbOv5o rMYntQccSuOjXWGff8kt bqTBUCmoWLSJXWi0x1ld PMZpGoJ7dCUmQJnmC3fj hkEqqNJfL5Fbo1AkPGf3 dQ42SOBaxT2paFBeMCxh xcGrFoX3CVxmZGLrMuA5 BOHidGApYECpZ9bfLGFz XGdyZWVuMFxibHVlMCA7 yPfsa6S8sAPdpTQniEqq RnGpIdUvFoXOa6LdPPz4 vNfxG5UcVUGdCoU7pBTf UGFyYWdyYXBoIEZvbnQ7 uY90ZPdqwdJ5zETwh5Vi d90jk092eL4bcKWnSIA3 MTIyNDBccGFwZXJoMTU4 IQAtvCUcO5hnPeQquLSz P9YaMmQalNZuR3CeYkBe gVXlR0SeAzHmiCYoKWGv iPH4KGdnk956QRK9FiRu JB8hA0Chl6V8qP4dtOQo FCAwiOZrJtXxOXUgzc0y cUDnAEyez1EpFVP8izF9 iBUqsXUvNBRmQD96Bcmh v6QvDrxtYZK9ANMiyuCc x6Sff4rqKiYkknVnT8fi T2DgNCBrAEEmVEPgGhLo auPiz6Hwu9RmiYGbbMm0 y2rcVOQuJMHjmPmwd8qw JTT4XTNbP8Y6tASbu0xf UOpnJANcaAM0rxS1QTsr KROojtC0stI2BSuuYUUp eGU6nwH0JTunEPGvJsQ9 weC1LSvbUQOkGTN9VzOd NMZtf8XzmhxcFoTzu8Zk jJAlIBecS91rc144LRAb msTbL4mkiPJpgwigvIRi xowgAEpgrkF8XBUuTLOq YWluXGYxXGZzMjBcbGFu ZzEwMzNcaGljaFxmMVxk RtQdFDWrWClxR2pkZhSo RdBsVEYPsOV8cPKqh5kn bgG9oJDcWS6lPYLqwIJl urRck3I5WDA7aHJpgC5r dLCgZKTwlHEdyvJbwc58 lBFzrFV1NODqIJVqvGOg rG3nHNBpHEZCgR3wxRTC jjChbsQhRNEooPdats1J hYDoor4ocSXxC6BnjLzd aWVzIHRoYXQgdGhleSBo IJErXBMgpekfv8NuRERi sPYwE1AwLM5aMVKimx97 [facility] Work Phone: Pathology report addendum [facility] (Spec) t8tjlIJwDTYsqZEiGQen MmzcdkXwXGYptMUlU6Az sevaSZrxPG0tDJ9apXio xFAbrMSjHKAtSgPzr2hz m116yRTjd3tpJDEXrfix uSg2ePllB02yq4U9Gtpc J30ppKEzIZB8KEVeIEWk tNPnUNPhEYA1AXPurTAq K0asZGDlKC4fugyzQGbe XYnuZMBwdHV8PVHjrWEe W4FoDWWrDNoqCVJfyme1 OnFkTm6jdXPhwWpjGWaf YXJkXHBsYWluXGZzMjAg BBjYQtJIvZO2fGDlxtFw kAVrsEWuMpL6vBXxR5np gflrkGBrNMIcQ33mO23z WsDwPER7SIwbOAkinsMc BSYry8PgTODiXD8xKHid BR5tF0P6bGToPSJhdzTa vVmli0dhRrKZfFccr9du s6VtiiEeDS0yk4GlFtKo ZXhjbHVkZWQgYXMgdGhl FF8nvo2enXI1YQ2gWSLh WNHafHQokN5ljwPewbIw kXSkjH43xzCuRTykUOMf elTyft5lNY6clUFwMZFr cn0= [facility] Work Phone: Pathology report Cancer Narrative [facility] Work Phone: Pathology report final diagnosis Narrative b6wjqQVaHQQgcNOxQGqm HqqhqxSjPXPwsUGmH0Zj ombsKSgqGA2qML7axUmu zOSfhUOtPSPgAbVnd4pn o668hESwq1fhQAHWyzus dRo7yRgaW14ew1I4Jwkf P56buEXrJOU1HHOhZMXr fIKbPJPhKNL8BRJbxGSo F5gkNMFcSM0rvehdAFue EUkdFZXtcLX0QURqlAZu I6DnXKUlMYvsGPOwucb4 CkOlYr5vuMKvnUejQAgt YXJkXHBsYWluXGZzMjAg RX7iZ3yEDdliXRyEJQBy UFJPWElNQUwsIFBVTkNI DDDSN2HTOPwezMFdTSUk IU4JWDVEEbYlZ1KQHT6O KMSqP6GCAEXQTLCXDD6B PRHsZQsteu22CQX1s7ja aWVsZHtcKlxmbGRpbnN0 BBuYOVWAYVpJLiTcFF7t MQqZG8DHVDuSZzarMPR9 M0cczUG8w9zsyMXhz8f5 HJtzTMF6gRuCBUt3PPRm BFuxr5ruUMWeIYear9Vg PXtQICYQKT5KAA6wdYV5 YWqYNITJHWwmPBU9K6se vZX5j7bguMVdm9t7QDhn LLM3hWqoaDMotnitNZRg MjAgIERJRkZFUkVOVElB VEVELCBccHJvdGVjdHtc IwltmEK3BPpgQrqeeZ4t dCBIWVBFUkxJTksgbmFt CF3AIPHWEqASZQ58Jpm5 WGs8JdzyjRrqCbcquvXm mCOeOcUpnT6GNqJCVQ0S KW2SCGRYSTKWEJUMHGhI CuLDKY3RPwhYJnayCwlo dPD4HVfgJbcswT3wrMCN OETERxoAXyzpnwRmZD3D CTUMLZ0AqOX2MEB0aYB9 Pf79TVNpYCDvbZNaKGaz B090MPTpGHozCFIzFwYv UGEqDHHHMEOVB6DRUbej AZYvbPUaJWVjYC1snIG4 NQ3rSYCetNCgak4vuPRh oPBdY0owAZ58ZLroYPUa WZ5aYBIdqLCyiHTkgIMs bKSimC46mfEoLClhSHYq nrSjsp7cSBSxpgIsDWPz cmVkIGFsdGhvdWdoIHRo UVYrZWPfMY3dUCPizULj kh3oxTGtdKDpA2ibQR97 ZWPkrUGelaF7yUIwbU7i s6rxyEnabOhao2LpRSMx ZAUqv7WqbAouESCobDIx k8VhJTGxcGgoJ4QxL9cs i25iAligILOspCHaNRrs XDEiqtpsFHGGBzGXW6pQ LCBVTENFUiBESVNUQUws VVKADpVWYMIOG1ENQHhc wBRoGCFuEW5IFDTVJxCr G4HRRP3UURGwU3YYLEFW GOMMGS3MJJLlIBbadw40 FFT3q3ovjJNeRLroUxxa aHTvqcZ9QAsDOPQKTCcI ZtJmAF0vRSvKS5SMPXpJ QujhYTT6W2weaOP9u1jv zLXek6b7BZygYHT8rReW JFc6YUKcAIxta1dxQRAs IBfvx6OuMLeWMXGHAB7J OK6egWJ5MRmJHLQJZDaz BOO2F4klfGQ3m1dagJWj u2r4NMxlMDO3sUqljORa fheaOSIdClTjVYVKTL8E REVSQVRFTFkgRElGRkVS MY9QVTQQRKMiOXuqwm96 OJT9d9kagFZhLMydVgof nPCmsqE8MSoXBACFZMiT BuOcFC8oNGoTP0JMDTjV MwjzJRiyFSq6wYH9i8gx hFCdv6e5KQqbKZK0qBCB SESLPaKfO52aIRwYXEAF DYKpRF1ELVHFRxfIZRUM WEwePJKTU6tYz7catEKy STbeAuthsWNzhiZ8RYqA QNVLKRmWKyWkTV6aEMmO I8RZObU6Coq4KNj1IDv3 fXtcZmxkcnNsdCBcJzFj hW7jpDeffL7nWmsvekAk MJzmG7AWZA4PDBMwNSYf pqnyLJRzKeMlTm94CPgb Di0jOAHaNCBwtVWnNEA7 hULtkP1hdjIxyWPug0An rzSzpwNzOGCoWYAab3Oo fVeaRPJspPQyv0SkSQKt hIzfL2BbN0nvs84fLLMh xy5jxNUrIZVmwDAluWRy UM4iLOwzjkGzkVP1IOCu ZUIwRt0bZUzxPSDfOCEr FuJ6BUMofHerniTtucZs w9abus8udWFtZLSeoieo xLZ9TBTnYgz4DgPthAzr Ujg5XNreVKoqYKLdHDV3 st0hhNGkhOu8UFOvI88y HTJgmFWhEobdZ56wEOOF i81nNXCBZMLzZrdeMXGt dPztZHIeUBzflA1kMNWd XHBhclxwYXJkXGJccGFy NJFkP63CNbKVYIFLJ56O UGXNRAQKC9URW9qAMOZ3 ZMZqsDR5OM9jNCaeXXjy QNZcSlf1YMH2Ik3hZeH0 NGO8xAY2HlHBSZUHDWqM Y7MtFCQZZGFZGPAcBH1N GJgLRGMRTYDOL00LPMQG NALHC1ZCL0rHWEgGBPZP IQLHQ61KTWFQWBBPT4FO VTBOUDPSLXoGBFPUXg9W JBRTYINPVC5AXUcFVlMr XHtERVJNUEFUSFNDQzoz GIK0X1r7Frg0NFAqhQYz eKkwKWWldQ56Hkj6LXtq uLGwf3PJOa8KWRQBQ9MV RfL9FGJaQE01PZlpYDVt iRV3gL7ggiyzggagPUpb KHf0AFDSLSEWHV3FUPNP P46GNCXGYZBPH8VAJFBJ InIOTKHAI99DWDMVHVOI F6HAH6oBPKMOQiMZPGII D15EFBLJVLNXL3WQMCAG AKCOQxSLOuWAVK6DOGEB XHNTOQ9YUKrAIvDaJCGP P4BDExWWC4bfADZVWMZI MEEkOV1BfM== [facility] Work Phone: Pathology report gross observation Narrative z7rkxPArMIRgjCHiLRme UkjxmbYpHZTwvQSfW1Vf rqmqFVktAW5cSJ3cnJzn oMZctDSxHDHtGrNkc6ej z308pBZje7ayXYSWnyec hQx6zHdrY30oj7A6Huiz K05dgYSpRRM3XEOqVGZw cPBnNDWlUSZ1OTEqaHJz W2klKQLmHG2orvjbEBdd TKbkLFSzgUV6CLRcbFNe J1IqBTHaFGrpEFQvrgl5 VjOmJx5juGOafSgcLBcu LpdiqIfel3LabHOyKKno IDUxMDAwIFxcbmggXFx0 AXXlZCfrvCFgJL6lxKnt RengzHiwf7VohRSbCPad JGInEYJkXFkmMMZpC8FY BQJcVhK6WSU8RBAjSHy6 LFc0FP7VGtNoQYPmFiN9 WXA5FSXxADo8PChhIW8N PEErNOQ2JHJzHcLkGNOz BmQtWLq6QINqGXhsiiDp GCvpXvwqAExqP19gdDJs ZFxwbGFpblxmczIyIEE6 XHBhclxwYXJkXHNiMzBc RDKyY4fhLsMoOCEfFpBl MIMlS6peDANiPEFlLGhw ERQcYjZuJHSjX8VtuzUf TAvyWZSeso8buHczITry CRSkZiG5BGRhmZI1ED5h TNBxDHThUX3qXBXjnP4q ICBJdCBpcyBccHJvdGVj fQfpJmkzuYJ1BCxoXtvj oF2jmFIDUSDOWooUTxzh osVeJW4XZQWGLoTXJZ80 OswsPNu4NMowrGkrWabw wrEgbGWwEiNinH60OS48 UWNbUQwpc2hjESNaUMcl z5YkNHmETMPZNH5VVK1k rJR7VEfSEOFZXPfuPESy DWccvQR3m5mpcDIlr8p0 DExyJBJ2kQvfdMCztpbk zdMfGIKzzeZyo1jozw0v ZSrhIFAnm3EvdRW8NLJl GrexSLA6WVMeXYBgBRSq fVHrJZInj7PaU4H8MYGu SJmee8htVRAxURjqb8Ux LKoJFLFLRQ8EAR0kfCM0 MCtQCPGIR9gBrYO2TwI2 aFN3Fu08WSHcRVHjmDWa VBncU001Y0dewN9wyvnd IMn7ZMJoJIfuz3vgNPNz XGads5KdAPkJOROAEC0D EE6mlBS0QZrCOOLFAYih HALlDPnnvUV4n4tilCEs x0q4UKdgRHB1xCcqkQIc blxmczIwICBpbiBzaGFw XI1fZSa4ZCvdhgUfjIPm ZGRlZCBccHJvdGVjdHtc LodeeRW2WZgjMzelqH7l dCBIWVBFUkxJTksgbmFt MG0HCXRRQaVIXP35Htpf FyS8Z3recXhjIovatxGt qXKaGoAezC8qwkT8y1Ib f5mikFFbAAjcJaqnyAZz zbB1WGmWLONVDSlMLiRl HM2oONkTE8ICXnQ8Ucdo UaP5I1bvuLohVzyotmDj qQPdKeRktB9gpSjnpR6j ZnMyMCAuICBccHJvdGVj pExfCvwehMS1WJxwKmvo iH2dvDCBISUHZkeRGnke zrAaJK1XXWFWKbDRMC63 Wlp2Qgh8MOl4lUgbCopm ifWixGSuKcCxiW4UvTPf w2OgS8ewVK6td9PdTHsr r4FbDowzWjwnzXP9CVis PgjwxS2nrAELNXRHQfgI FzzminVlWB8GCEHFXU0G dWD6EJQ3iKD4OD63TCCh ISAnnDOrDDglY767OHGu PMbpRWMbRuVqRABfz4iz nHftw0OrkOAxHP2dlDCt w4ooDYVtbQYcHEH6QCxc aWQgNTEwMDIgXFxkYiBP UfNsEkFqDRJ9EOH1XrRc WNn8VDooI3DXXABrZIY0 VtX9CKa4KqD6KIc5DKNM Ef7bPOZ6NsD6VpJ3TiH6 IUY1ZCWjMBTzFcVlXNBm KMGcAJybeCUkMT1lCVlg TbW4ONBzskBcb3AlSQPl HJUsM5rfRqYwMLxeibSc IPU5UNJlknvtTSZjCEMb RhVvVPWxC3pdHiCuDGPg XUmnTFNrOqRzLOOqV7Kj ifMjPHvgOILdzl4ajTop VItgISZjKiO8KIZybCA0 BK2vKZGlUSFuOM8pETUo sF3oPLHWlYXnjcKrrIKc rVOiwMbwAwexrAR8ZNxa KpktwG7cwGIQXMOFDujT XuxfabXvOR7MDIHNWgRP LT01VdaiLDt5DZo9fCxn DhfhdsHnqKXyJyIamJ32 NR81ZKRqXNopl1fiCKOp CWtvi7WmNRvTULWYVP3S RD6ylAZ1RDsPDYCEKRjd CNNpUTd2iVA5q3ipsCTy t7i0TZliUEW6rAhjxPLf ppycqfCdBROxzcVvx8cc eo5eLSywZKDic3CfzJG8 PELjSzngHIK8BJPgFINV dCBpcyBccHJvdGVjdHtc KthttLP1QMpkWhvgdW6h dCBIWVBFUkxJTksgbmFt AX4PLOPIRyHRZR36Lpjj VGt4Vgy9jSojCnrnwwPs pPFgRvQliH7ujHxtmsQx iMFaaQsiOgpiqEW0ETiq JpxnwU6wuDAKSHZYVdaT OvaeiqUjLV1ROKFUVR2P lRD5QsS6tXN3Cx96CXKn OJLbnSLdOIbaR781XVIt YWluXGZzMjAgIGluIHNo TDBiImGxXHKkm7KqGEPu QoHwSIQrKKzgqu53GSL7 b3pylHUsUNdcGjoriPUj tvY4ROqYJYEHSEvBYqCr DY9bMTuQY0RKSOjBAoid AZRcVCq9sNn2m5lxbPOg d9r9PQkyXFS5wKyeRUXv qK66PYJyPZyjf1snPQYk OXkyu2GlLVuNXPJAUA8C HV5qlRF7EClNMFRTFMuo SEVyREk5kMa9p7qqpBFw i2b1JWypPQX9iXpvoACv zijsmsUyLG1fQQtoav45 SIN1x5gufDMpJShoYjcv tQEdetV1XNzSXDVNARnF BmTkCK4gSRoEU8SJQWvB LxqnNDjlCAa8zOm2r9ff bOTol6z5AOccPEU7dWNu BJVxqGSyzK7myqP7HGEd aW1dMLRiz4rrpQAvCQwt NajieXEismN8NRyXCCFZ MZlGYqZiWR0nUEyKM2UE AsX3Ena5Qrk2MGc8uPng FasammNeaZZiEpInhU1c xTtrmG5jApYlXCTbUVee YEItiRXaJEomLYBsc5Br MFxlcGljWHNhMzAgVGhl IHNwZWNpbWVuIHdhcyBn kh5gw9GpBRV0ETaroy21 THW6c4yjiNPoNGiuVixg aNZqcnQ2TJqZHIPBIKlY CzGeFF3hEDgMF1ZMAKoL Eew3KYT8Acx7jJb9p5dz oGQhj7h3XHqfSWK8yFVq iHhryOC5TZMDhIVgXR0e IDtrcm21KULmPQnbs5qm APGzGTjmr1UrCZeUZWIU IO9AWL1gsJS1RRzCKYAB XNh4CMD4Cyw0oTc6d8gl uLJlc0v1UOdnDDU8wCst gJAukkccomDnEGI3YWKj sMFkRPM8TC2exYjnKVNo Y6IgF1JjqbI6EDOkbby6 PCMTIRKKLFfKHG0ANLBJ EEXGXG5CKHiPBwWpHUUj WJmfTVKdUqtvPHo2Zk4f KvD0GbCtwDH7Dx7qLYst BSh0YGZuUbelDTe6OF8u UnA4UlU6oQG4Rz0hVBNa WVy2WSUzBdw4Gzf3AE8p KqAlQQammVy3NeZRWNXV CUqOD6OjHLUPJWNIHLZp GD8PIRdDUUEZIVAMM38F BBJQUUQNX4NNX4eZBKfU XWUPMXQXF88YCZEWAPNR X2HVYHBOQDFOOCaQNSZQ Ja7FFIVILWSHIW7BKKyI OoYcSBoxBDBesQG2sGAf sK7lZkL4FvG5TD1oPIef LVHzhNO4jMDuXYHmLvY0 AlB3HZ5eXVraHNLsvPR7 yYOsWrXrUGGvWdF8LhYh OY13HTfrZMBkkJA7iKzz dustLQbzJGz7SUy0RLNc oUPqfGrdg4jolhmcHXQq TAf0Rnz0ZKGssOIhtKyd fSOuAMvfAFCxXGx9J4v8 ZGVybXBhdGhlbWJlZGRl YWhxDOWxOMt2SVi5QCYj pJTflJhwxjj6Erx5Tura cOuql4Irbp4qOMUvP2Ay z8Enpog3EXS8Zmi7ECCB XXGULX8YGMZBY98HWEOA HKMHK9DVTBIMAqCOOQTY R32SMZQHTAYLI3IFA5pB QWBCFfLXEKYZN35WFWTS YAOMO0NGFNIXPUHGOuOD HjHOSK9NVFATDHOLBF2Q JWoEDmVxSSFTQ4UFOlNQ D5svGEODDBIQNOOwVW3U fQ== [facility] Work Phone: Pathology report microscopic observation Narrative Other stain n1cmaHRaADGlzPDbMWzd DmwnvvFnQJCkgFXeH7Vd fuvxHFabJU6cND2vwYpj eOSwlIEwELWxSdEod9qz u814zLEbp5slKORDymyh eQi9cLijT42ja9I6Qcnn X93geFNtFLO9RRReESTu lFGvEVXhQLN4XDRslSAa Q9zlWDLaVS9hpbpgCNua DCqsXBIohHO8SJGfgOJj G8OpFDYnUGmcFQEihia8 OtBvNk0phGBqqXjdVLkj YXJkXHBsYWluXGZzMjAg EV3pFPhvuv2yG81gdXUe FFisxJjeTKRma19sxkW6 ZWFscyBhIHNwZWNpbWVu ODFeULRbGUh5PO0ngdAb bnRvIHRoZSBkZWVwIHJl dGljdWxhciBkZXJtaXMu IEluIHRoZSBzdXBlcmZp X9gxjGHhegNvEXZzqHOg ZXJtaXMgdGhlcmUgYXJl EOhxbSZqETTal6Kze2Fa EIYeba5osWGetcZ7rWNm EXFodwFaDCgmn5BvYBFv vti0MQPyp51iUJNjtzch QABbGs0zDWdezw7vZ04q uTBkRF5hiSvwoSOlq9iu y9GfkZUsCLz0fPSdFHhz s2p0mWRfTgJiJTQejUyd e4V0xSJlXMBcDROjAIFz JGChb71rrNR1RDOhs4c6 cAN4rOFyVKOiLXHcaYvl IGFuZCBpbnZhZGUgdGhl HRTohg5oemYwitMjv73l IZKoLPFml1tjbnGnDJWl UJOmgKWpheQuChBkOH2b mwElWRWfxTFeHW9jPXAp cpUkFHlcf1CaPYFpvao8 VQAyy74nTKTzBGNpAHIo ojWeITbcQVGsi2BcRVFc oBxwGPHjZQXei56naAgq VPGvKXCmJFXqTJGfyx1t IHRoZSBzdHJvbWEuICBB dHlwaWEgaXMgbWlsZCwg YP6pCD8lkY2uVIPeTITl IHJhcmUuXHBhclxwYXJc cGFyXHBhcn0= [facility] Work Phone: Pathology report relevant history Narrative s7bveAKzFIUhmBQzUYtp ObstslLcKZImiQYkP9Pa rseeZMfqWC8kDZ3utVvz oMOgpOSjMWEtVqBfz6ie h566eCQnm3qlWPNXafls eLm4y5jgUIKEHGsuSYGE QWh7yLdyQ52pq2O2Tmxm J6qcMBKnJQznZUZdECee aAArYIt8ZQKuoFVcoqHc QdPdFPHkkACvtQN5FTAx FM8vqnrsGLxmEFrkSNQx lnQ8NLQgxQHvC0ZxDDLu QH0mehxoWOF2IKvoMJWi CJE8BtNkKFWqa3Zwvin0 MjBccGFyZFxwbGFpblxm ECfogvUhVKWeYHWMNV0g u3Jxz06iUOolI22ze4dx YsIDnOB7NTLaFVGcu2Rp s2QaFTXvIyFkKYYepevj SOWkwAQtPEHhwD4sY9Gp CBlvn5OqqehsO6UkP9uy kIUVOBN4HXG2EiZugHHl bmljIGhpZHJhZGVuaXRp cyA+JvTamDAaniUzn93n vzsrvATbMfY9jM2nk4Vw CO3sqqQ6kLOdRKUfT6IK AR8ekDUsoZK2qPHarGQa cJY6xMrilNHxh8K7zTLc VKXhk9NixZBkyjhmLAZb GKMoNSjzUbPmC44bbRef IDYfuVi1UBIgSCDbQV0r UCsgHaDuIhI8jQ2nr5Kv j4m8yUIezOOjbLOvg92g gRnbawYckrJ3nURdqGUu sDZkuAGJD3IptDOopL== [facility] Work Phone: [facility] Work Phone: Magnesiumon 11-20-2024 Magnesium [Mass/Vol] 2.13 mg/dL 1.60 - 2.40 mg/dL [facility] Magnesium [Mass/Vol]on 11-20 Interpretation and review of laboratory results Normal [facility] No Panel Informationon 11-20 [facility] RBC shape Nom (Bld)on 2024 RBC morphology finding Nom (Bld) No significant RBC morphology present [facility] Renal function 2000 panelon 11-20-2024 Albumin BCP dye [Mass/Vol] 3.4 g/dL 3.4 - 5.0 g/dL [facility] Anion gap [Moles/Vol] 15 mmol/L 10 - 2 0 mmol/L [facility] Calcium [Mass/Vol] 9.3 mg/dL 8.6 - 10. 6 mg/dL [facility] Chloride [Moles/Vol] 100 mmol/L 98 - 10 7 mmol/L [facility] CO2 [Moles/Vol] 23 mmol/L 21 - 32 mmol/L [facility] Creatinine [Mass/Vol] 1.25 mg/dL 0.50 - 1.30 mg/dL [facility] GFR/1.73 sq M.predicted among non-blacks MDRD (S/P/Bld) [Vol rate/Area] 70 mL/min/{1.73_m2} - PINF [facility] Glucose [Mass/Vol] 104 mg/dL High 74 - 99 mg/dL [facility] Interpretation and review of laboratory results Abnormal [facility] Phosphate [Mass/Vol] 2.8 mg/dL 2.5 - 4 .9 mg/dL [facility] Potassium [Moles/Vol] 4.2 mmol/L 3.5 - 5.3 mmol/L [facility] Sodium [Moles/Vol] 134 mmol/L Low 136 - 145 mmol/L [facility] Urea nitrogen [Mass/Vol] 15 mg/dL 6 - 23 mg/d L [facility] CBC W Auto Differential pane l (Bld)on 11-19-2024 Basophils (Bld) [#/Vol] 0.08 10*3/uL [facility] Basophils/100 WBC (Bld) 0.7 % 0.0 - 2.0 % [facility] Eosinophils (Bld) [#/Vol] 0.43 10*3/uL [facility] Eosinophils/100 WBC (Bld) 3.6 % 0.0 - 6.0 % [facility] Erythrocyte distribution width (RBC) [Ratio] 16.4 % High 11.5 - 14.5 % [facility] Hematocrit (Bld) [Volume fraction] 29.6 % Low 41.0 - 52.0 % [facility] Hemoglobin (Bld) [Mass/Vol] 9 g/dL Low 13.5 - 17.5 g/dL [facility] Immature granulocytes (Bld) [#/Vol] 0.05 10*3/uL [facility] Immature granulocytes/100 WBC (Bld) 0.4 % 0.0 - 0.9 % [facility] Interpretation and review of laboratory results Abnormal [facility] Lymphocytes (Bld) [#/Vol] 1.78 10*3/uL [facility] Lymphocytes/100 WBC (Bld) 14.8 % 13.0 - 44.0 % [facility] MCH (RBC) [Entitic mass] 26.5 pg 26. 0 - 34.[address] [facility] MCHC (RBC) [Mass/Vol] 30.4 g/dL Low 32.0 - 36.0 g/dL [facility] MCV (RBC) [Entitic vol] 87 fL 80 - [address] [facility] Monocytes (Bld) [#/Vol] 1.14 10*3/uL High [facility] Monocytes/100 WBC (Bld) 9.5 % 2.0 - 10.0 % [facility] Neutrophils (Bld) [#/Vol] 8.58 10*3/uL High [facility] Neutrophils/100 WBC (Bld) 71 % 40.0 - 80.0 % [facility] Nucleated RBC/100 WBC (Bld) [Ratio] 0 % [facility] Platelets (Bld) [#/Vol] 758 10*3/uL High [facility] RBC (Bld) [#/Vol] 3.4 10*6/uL Low [facility] WBC (Bld) [#/Vol] 12.1 10*3/uL [facility] CT Chest and Abdomen and Pel vis W contrast Mp 11-19-[address] [facility] Work Phone: Radiology Study observation (narrative) [facility] Work Phone: CT Chest and Abdomen and Pel vis W contrast IVOrdered By: Ravin Hyatt on 11-19-2024 [facility] Work Phone: Dermatopathology- DERM LABOr dered By: Ashley Ramos on 11-19-2024 Laboratory comment [facility] (Report) c0zadKVrBZUkc0vyPXYp bGFuZzEwMzNcZnRuYmpc sFFgBAdbceZeLFuiv1Yf W2TsFpNdQJsnjlVaGCMc EiuurmktBOJqQQC9chFt KQXbYJabSGUkAShvPa0s qKPsnPmkWrRjLGRhs6kn ljXMPAamNPFNWKf8u8ks CLOyReV2fBXqLBmhB8vv hiTzpDOjQ5Rsp7UiZCx9 cK86ASOvsO5glMArJMiy yrItKzK7LZmgDTZlHgP5 GHQyzBPfDSAjP0exGSRr XGdyZWVuMFxibHVlMCA7 kCuct2O0mTTgrGBtnHpz BkQsOgQzClOIz9KmTXk8 hMwaJ7KhROKnOmQ9pAQb UGFyYWdyYXBoIEZvbnQ7 mE06TSwjtrQ7vMEmd6Oi s61zs006cZ4tdCKcNQT7 MTIyNDBccGFwZXJoMTU4 TLCcaBKjO2ujOkTnpTXx H7SrDiMmgDDuO4QhVxVj mAFhY7OuZjXzhHNtUQOq dYK9MDdzq641LIK6RcRe ZM4hW5Xeg2J1cX1ohBHl VMDurGZzUfMwWXPbvm7w tFQhIXtmp4DrFLA4vxW8 sZAkkOEmKDGmGD01Sqyx a7RsJoxiWNL8JUXuraSt v9Mkd9ooVtPvaiYcA2vo Y8NbJVYpIOAdDAUfSqKt afMtr0Azw2VjnFZstRb6 x0onOXEwCZDmfZguz5mp ABT2ZIGjR6V5nMKln4vu EBfdSWBybZZ6btP1ATay CROyfwB7lrB0FSsuDZVl wAZ6ziJ6HSpeKHRlKmP7 gkW4DWupTWKhWCX8ShLd RAXgl3PluyukVxBwo2Yy sFAvDKsbW74lu605CDLu oxZyI6ogzKSfyiwatBFd yvmmZUnjfzY1ZVTuUOSt YWluXGYxXGZzMjBcbGFu ZzEwMzNcaGljaFxmMVxk MySoDZXhTHekK6pgNiJi QjClFYWVnHD8hXLel4ui xqE7uMFmFM8sQQXzpSAb myIqm0J2OIJ2jMNhlO9j zDAyCVTwnUWrarOgat68 gLCoaEL5LOFwNGBnoXMs oT4oXQIjATOGsI6ptXDX wuLybqOcMASddNfsoy5H gBJwbe0kvZEnI4JquUru aWVzIHRoYXQgdGhleSBo UVHhBUTqqtipo5WoINQr xVLfU6JuDL4sMBNyno71 [facility] Work Phone: Pathology report addendum [facility] (Spec) s6bctUCzBRGwiGCjZIra KjutdkBfNCLyqZKnG4Cz sleuGMtdMG3hZU7csVsw jZIgoRIeDWQuStBfl6ah z619tRGxm1khYHKTuxxq eNn2gDjwW38pd0N1Grop X66dxQPdMRN2LUJsCKNq tBMnTKZgWXF9INVwrJAe Q1scGEKdIE7dmcidFZhv HCxjITFnpYP3YJDdrWSq J5ZpDGJgJUkpHDAvhgu1 BrEvUz9wnXDdsCpbXRpt YXJkXHBsYWluXGZzMjAg EROKj89kekUUPYGhv7Zg iV9aHIFvynAoy3oaLQVl xq0itnywxKJxGHSlrqBz yLQqaT2vBINbsaJ4nX1i ZV0kNAHkzb2dF8RshiAo oJske5XzVJVrGpDipzA0 gHBbuUcha9I8QEBrCKXk UIYpiQAfUN0yIMNkiIei IHRvIHJldmVhbCBkZWZp yfh1cFZzCZKcnRtarGIk HZEmg5VdxVKjUQmsTSH9 [facility] Work Phone: Pathology report Cancer Narrative [facility] Work Phone: Pathology report final diagnosis Narrative c4pweSXaYDXobHNuNGju CjhvvoWhZEHegXFiX0Zd bmtvABzuDT7oZQ3awCvc rEVicQUrEOFrElMbz3hd y253dFJbx4leJZRFfshe bBu7bDahX47wx3H4Yvaf N90abGIzBKI6DJBqSBOu qWNyXQXbMAS1OIMciMFk O2yhHDQtQD7uprncBVut PEuwRQHkhSC1FIUfdULb X5XtDRMdVPtlLIRtbsm8 RbFjXz2njBXudSgjBBvh YXJkXHBsYWluXGZzMjAg AA1nY7fMQkmkFTtCJ6lb EVABPqVJCNXGE3FKHEld fQVhTDWrYB9XEVZKJnGr Y8BWYT5UWBTzR5ZRZITI FOFMOZ3UZPGvRNyefx49 ZMJ3w6zmaQSoUCjsOlbj dUQujoF3UTrQTARITKlP MrDiYK1tDIyQV9QWCIgB NysjDKA3H4eqiWD8z5ic uVQdl7k2DNeySKE2cUrN JKx8BOJpKHeou6jpZAOq ULxne3UiOFjSPLKUYG0V WS2uvMB8WFwTMVMJBAxi KYD2Z3zbfIB9c7jllKAx e0t0BZpoQUZ7aHakcUGk blxiXGZzMjAgIERJRkZF UkVOVElBVEVELCBFWFRF LcJUHonvVH0uQLlEFNDI MFLxAQ6KOCLCRFBPRBPD KYoVOaVCFK6TPidCPlAu QB1iPJzDM1EcLIwBVcKJ NS4JAYBRQ9YJZ03hVBEW QPDVE87GOI9FAWhlhMJd BUUcjpxyQOYRg81wLS34 OiBBIGRlZmluaXRpdmUg DVAgNSZqbCEpLSH0aWCp xK5nwnOlxVEtdg14EWIf pBUfQ0mgvHQaJKieTPFu FETvkkItjVWnxNMhoZ3b dGlvbnMuIFdoaWxlIGEg cHJpbWFyeSBjdXRhbmVv uWXun7C2NA4xkQJvT1Lk wFQcDKWmxS5voQOxpOFi OyT5m8VrGMiqZXDpRJEt d8SboWcfBIKfyXTbo3Yn YBYyzTfvS3TdR1qlu21w JAHgoy8gvNJxQHQbiJFw xLXeVCTlmjE3bAFuxR8u dGlvbnMgYXZhaWxhYmxl LlxwYXJcYlxwYXJcYjAg Eq7uZ9wZPnclNQPLXIJP YIYAL7FMRqtlZQXKC4al QklPUFNZOlxwYXJcYiBB S0FTYQiCY8bREHNDPZDA TN0BYD5PPOXVXLWRMWCL QyBJTkZJTFRSQVRFIChT LTTcA19EZVAVUWq8YVDo igcwYCCoBsOgS63ixFXb dDogVGhlIGZpbmRpbmdz HONeYDXyg2Vzw5UvA2vq zBTtSA6kMA6exIAdNEMk OPRfDUOllcJdFY76DRMh RWOnIIXwYSKdf0FxG5bq w47rNwC6dVGfdjB7dV6l AC9vAEDivT7pCFYdADWu DX3xKWJdzjhkGCXqqLym BQMhPKhioeT7SJZoLrTe JmBrIBE7mh2okIYlrFm0 JIOmZ60oMPVesWGfRbut HsVMZKJCIWSBPkXEY3zK LCBNRCoqXHBhclxwYXJk SDBpNJVkcZOvARUzP73V JyEWGUVIJ48IPXGDPJMA P1MGW9mTJEF2THXbbYP2 HNXAOIWXETjQO3KhXYLF LMDABRAzIP6GIOiLOYQO SPTDG21ULWCUSIXYE7DZ R3tBMDwRMSSRXLGCZ96A FPQWQMZRS6LTUQUDGHKV UWuSEPLIEu4CDHLYHYTM BS4LDOqDVnAsFKbIQGFY RBBWVXBREycvAWD1I3p7 BTLXKMSPOZ7LAJQZP43T QQZUXSPCG8WYAIHGYaUZ WNIDF05GBOZTKNWAC4LF R4qYNAEEOlAOPYALW87B OGQDHZSOK3XWEJXRPKOY MuPDNoLEXO4NTBMTOCYO LQ2MNOmBOnHuOMSUE8TT GhDAJ2zjAHENRNCSXGAf RU5EfQ== [facility] Work Phone: Pathology report gross observation Narrative h7xedBAtVCVxmFLdYGeg CntnbqRwROOzjLOuR8Af rnyjIOleJJ6uJY8gpZik fUWbgXSbTECxLaPew1dz p856jHCux2anWOQYqolo hXk1gQmqV17vx7J6Ifai X54hcZAvMUO9POGrLDFl dBKgFWKfZUT3KEVrwTCf Q8zjYCGcKZ6jdzyuYImb VJwiKJPpwJO2YQFjjQCb G8XhMLAkGAeqFDWekrb0 IdAjGu9nnUOmsYgzKQyk MiuddQhiq2XaeVNcBInm IDUxMDAwIFxcbmggXFx0 PUQuJYvtmYGfZC8xhYzz EsyvyUyse7HdaMRnJNhh HJReINUlWZneWVKmA7KJ SUJbOmG4HAVpTqFoIXi9 FRi5OX6HNaLfSWMrQdV3 BVJhTGNrSLd5SQzoGB2W IDEzNzQzOTUxMTMgNTQy ZqwtHBs8LVFzYPmhrrXv IFxcZmwgXFxuYyBcXGZy fVxwYXJkXHBsYWluXGZz MjIgQTpccGFyXHBhcmRc r0ChUQjuxQlvYIXaAjDi v7LiGQaeqMwxRTEnPbYe uWiltN5iNwZmVGJLDFHi gOVlQAUtkoXsz0KvGYak rlSnvxUySABejTI5SBpv NCBtbSBwaWVjZSBvZiBz d4gqPfUdFTEbeJJgDOLh z8OpH5F4TTYzQJhrl7fj FTOyJIsfk8LbQNcTXCZO GS7FMW7ifLI1IOeLATWX F9tPaEG5ZmZ8gNB4RF33 DLAkLVLioOKdJYmgI055 uJXjr2xomFXmMAskDhgt pTKzrxP2IXfUGTTUUTkN PmSiFR2eRUiRJ6LWOgC0 JjxtCVz4NPeocLkyKtig tqDhqHRiCsNihA3stQmy pK0dJaAaKBRnnG4nQ52s s9WiHVEHmGAjpnMevKAa iEChgOxvPjyonCC0VVpb SsdkhS5bzMEQNWBMBujD BrpjxhYqIO6NXAFXDgPL IZ37DlygPDd5QivfaHwk ClhjtbDjoIJoMkXvgZ1v eWxpbmRyaWNhbHtcZmll gSD3VJreYlazvT3ozIHX ZICKHwrEUrwgxrJpOS1Y GTQDJS7FwUA5ZwT6dLD5 Yu68DOHaHANjiLVjBZao J052FXUlBSupSUYlRyPt IGluIHNoYXBlLiAgSXQg m3KyEZKvCjIoGBCrXCla yx22NVQ9f5chpIGlRFto KajfzATzklR1WNsZYCKZ GJeLRvWlAD1jHIqAH1FH RUdJTnwzODIyMHwzfDN9 k4plpBZmu6z8VHssYBU8 wNwiZOZnkA76ELPnTFzt q1njDNFcWVwvw3XlYGuP FDOHWE2GBQ8omGV2NJuX VEVORHwzODIyMHwzfDN9 j6hfgPMqb6a8LGhkVPU8 yYawqEQqkmvqhmUlUQ2w ECltup58ZJJ9c5qbbGRf GJpmSjwavVRknqU3SKnP CNZGDBkCUvRmSF8vMEqF P4KSLVrADlhwCFrzBUr5 iVR5r0tgjEIxj5b4YQkm HHD0cMYfCRNmiNFznS2t fmB8EXSvgF0zFGHkc2sr aWVsZHtcKlxmbGRpbnN0 YYfZJNWCRQfXTcLkRE3e CGqHU6RMCiK3Wfs6Kgu5 DUv6nHvfFcyktsIsvJZz WnVaoR7aaUwieJ0dXaMt FBOxDTMfc3whsFcyb9Tm cVHbWO6iaRLod7ajIXDs lADbNGS7TPdikCYzVGHv MDIgXFxkYiBPVlIgIiAy JML6EVR5PzLvCIz6KGed Z7BEIKGmHHD5CDk9OgEw RpD3MUw9DSKTGc3hTMN9 OVR0YTU9KkK8EZA8FFCu XHQgMiBcXHNzIDMgXFxm aLLiKG5cDFncCmQ1SDKe nsHba8NzNTBrOHYgO7rx HtQqNQowtxCzLDF1OCCk clxwYXJkXHNiMzBcZXBp C5vrGyJxPPNcKBkzXSSb SkYxHlFzKDr0ZVKttK4h Hd3meJZbrS2viPVvQMF8 HWqhZJN1FLHnyN8mtKzd Z4Vum0Vzm4ktuv9kDQt9 SUxfECxwta66WPF3i1re aWVsZHtcKlxmbGRpbnN0 CEjXXJMKMPwWTwRmEY2n WXxZQ0IFQPgJSrusSFGl BSr7dQZ5x5wybTMrp5l3 KYvrNHE2bYWbntfzAdfy aNV9VJkcPubtiB5olJSQ RYHKWftYIvzlmhTuPM8V AOSEOD6AjJW6XxN0sGR5 HR33PTJuMZAteJDvESuv L438KDAcVPiaEIApJpZu TTqwHHJtmL3sBeByQMPs kITrLVIsz1CnA4K5JOEs JEecp0jiAEQjEAwoz8Zd WItKUAJXBN3ATT5yhCY9 FOeDMYGST8mIdQW4BwO2 iQI8Uf35JOJbWWEafREz MIelG811R0aapG7axvsx TFc0XXNlJKpkn2emDDWe MSvyf7YrYMgDFKOQIC7J KX4jfUR0QOaYNJDKXLkr QLKqOPf3bMB5f1nxvEAj u9p0HKdpVIV5qJtguZFv blxmczIwICBpbiBzaGFw LD5pYRc0KEyydiOciEYh ZGRlZCBccHJvdGVjdHtc IhksaON5XAdaQmehqK7x dCBIWVBFUkxJTksgbmFt CE4ZZWKFFqSIML20Zqxe CzO8S3a3xBkbMzwrqaFg lDPeAuIlxD8rktI1c3Ow z3uuzMCnJPocWtkyyMJj psF0QAmCRUBYIBbIKtTp KV1xHTmCK9TQQoY6Hzoe TsK2H7s2jNrtJszypiFw yOIfJaRjrK7tjBwyvX8d ZnMyMCAuICBccHJvdGVj aJzlOunapEN7NWyrJkbk mP0ipQUTOAKNHqqHAhsb ryXfRC3SODTMBjOZID46 Hol2Anb9AAq8mPdpQlqi fiGwjHQdEvJbhW5ApTHd j7QsD2ylZD8uv0QcBJrc i0VsFmrtKjgyaMG5JJam PtjxgV6yqTILCUZVBtfA SzwvdeOfCR5LDJXVLY6Y dJH0QHS1oVl2CN76ADRg QHTozDOtDFxjW140SIKt YWluXGZzMjAgICBccGFy XHBhcmRccGFyXHNhMzBc YQQoC9unNCLpXGIsGYTw yREzpN6onbJ5SBIaR0Yo i4ReQWVnyZZrfXRlbVEh nIjmIcaxlUY2CMyeHdyn wO1elVURUMSHJoqXGgug lzPpKW7OJVMNXwPRAB10 RJM0LnL2TYu5vJceGvve nkPwhYYiYsObsF0AAXR4 oHXdGXNymPoqtzYtb7ia aWVsZHtcKlxmbGRpbnN0 EIeKRCJSUObDSyEqJC7m MLbKZ8QYWlJ3FGI4IyX6 MRa4tXsyBuzlvoNesGQu SfUruJ8xsTninB2fLmOs WFJtTJysRJGfJ1NiM6Tj uuF1x9dbfUlxs4EabQPh LA5nsMIyWZHhO49QIsZY IVXAQ62AGLSQNYQRK6GO Q1mPLNL6TuD4yOR4JS7b ODIxOXwyPTJfMzgyMjB8 Jo8vWuO9KWG4dQB4CP3x NBIvRYd4DZZwHjywZXt2 Vs1oUqP3FjLfuMj1Hz8e UUsiHXi3FUJrAKH8PwJ1 PT8aBCGXSZIGNTrICT6Y PMACTNEOYF9GFjKqA1cG RENBUkRfTUVUQURBVEFf CsVMPW4aO6qICVZKKqRu AUYFMNILFQCvPI4XAFXN DBBGDR5EFVCTP73FGUCN GVIYE1XRC2qQWEYwy0Eu pz3sRGLhH33ss6V3Aqog XVkupSAcb3Zwzp6cNMPu s0pxcTY0DxqqTIohiOVk k7Pbex8dGHGdWN4nJAWx TCV9PqtuVjPcfNCri3Km ia2oRAVdpE0aRmG7SVD9 MQ36BJktQDNmpIA3yAEv qY6jMaW8PqU0YW20COab ZJBklBL0hWCwAJBtExR5 XdQ8NC89GJgzPMQfiEH8 fPPrRgBqUVYiYsQ7ByEn LW80JOiaQJTxkLB1qTkv xtqqKEaqMQd4UAg1MZTf dOZucJtvzc5vo6TwKlJa FNtvNR0rAFyCR6DUF8iU LGJfEHFTOCHNAARgNP5H FZrPHR1RBRRoQOXREAQP VUXxXdLIXR7hLYeDJN7C SWYzGQCOPLYIXYJuIP2G RGGNWC4MTMPDECMCS37K ZNXPAZSGD3GHW7mLCRER RBQJEcXNLtQOFD1YDZWK CMKNEV9KOkH9 [facility] Work Phone: Pathology report microscopic observation Narrative Other stain q4bntFFcXKVtcFIzRSnz MzwwsgFzTJOgtOKjU4Sb zzqsPVaqRX9wFS1ofXzo qLJiaDGkKCJpCqKxb0oj e628tQXys6szXJAGwzha fWq1bKydE21jj3E9Yqgy P90wpTMqQNQ8NPLpWISl qFTrNNHxVRQ6XETzxSBu T6dgDESdGF7eisijRFoj DSynYRYdmXP1XZSnpBZh V7SvRDUpRUijQMGmruh3 TjFcWx5vvXUuyImfBRkf YXJkXHBsYWluXGZzMjAg QQ4hOEoaZDY0buXcUARz j1AcyWDjJXKjXXhtOSMx xqLsum7arJEtxKzneEWs wFBdAKWboAqyc7J1xFWx dTWcWJ6kqzG1fWGrYXge YKJjnNJljSAfyUfxf84z AS03U4woTYOiiFcar42i unJwtLNaRYAkjhYvx5Ik DZYdaqa2SZEjn77uBULo puvlZWIaRi1zTBmmWKod bWA5h8q2uXrsOZZzLBRC w3SxnpGmsTGnerCfFAWn O4Sjm94nHD9dAIEfMMUv nY1eiHFqtE3pm4pdm1Tn E0euOO8rbfD5BJWjUAIf wJIuer0jpSPgQ5CchBcg e7vgKQnuzKdgLNCcIQ63 tlSlGXHihTZ6JBEdIf7s iNbpmRftraBma5YfBQ7z VGhlcmUgaXMgYSByZWxh eYf4ERt7FLQzubDfMGOl mOLglwwaRpJla6saxKD0 zE7ySNVvZ2OcqFLpvL6m zB3aIZvmjwRgqGWgv4Fz XEJlpKXzGLggkJ0kRNAi pHQuttXgl07ygeGshNa1 ZETzbjn4KSCkpDqtpkGe rA5ioV6cmPJwbQPpvGVf YyBpbmZpbHRyYXRlIGFu ZCBtaWxkIGRlZXAgZmli gb1sjUNts1p3cYVcq0Gl sYWbJSanc6A9eUFgSVEl r9KsuR6zwLXjUTZzuejk YXJ9 [facility] Work Phone: Pathology report relevant history Narrative s6cprVDrJAOqwNClGAve VyeiqiAoGUOcdOFsV0Ph jrzcERaoPR5cOB7oxJrw eCPvcXSdBQUiOvPce2oa z309jBYfq8sqLILBbmsf wOw7x3vwKNAKPMumJFWA WRi4iPurC21nl1W0Liua L3rzJVYuXXbcMYSaTYio rBViVAu8URCgyPOlukLs IaMlPDLfwZFuaVR8YVPu CA5jqqdbTMcsLDcyNPYq ssR4CWDvfGLiK5NdQSMl YK6mvqfoOCT2SKgtTKLz SQX7QoJzRABkz0Dnukm4 MjBccGFyZFxwbGFpblxm EKtwexBtFUKrLEHVHJ4o l2Bre21xAJpxZ91yl6ay BeHUpMR2UBQhMXWsa2Qh g4PyLNPtAlTpMVVlirlu RIIpcFDbKGZjwL1hK1Vy NGzwt4CmxasjJ1UxT6jg yYMIHUO0FLM6ZuGHrWJ4 aXRoIGxvbmdzdGFuZGlu ToYghLCfKRYkjju8hWQq d8OxoMwgUDJ1sVEnC3xy IHdpdGggYSBuZXcsIGZp sh6qYXYfoGmuZJ1ye2Bb uCrsoCHqcp5rCSWbbaBr SXI4QU1fogFjEUwlvLny ISj3gnZyIIGbPFyxAABu IHdlbGwgYXMgYSBjaHJv wgxkSAXwP7YzYS6sCBpq RwQhLfL4xG3sg9Fuj5w0 hMOjtyN4nyN4FBFhDa1r WAKcBAXdoJwgP8sll33i PoNLFsC3sp9mBALdjo4j sB8chxG4qKFijd4seWOr aI43hlEyUIlqKSJgmwDt dt1nVLryOEF7 [facility] Work Phone: [facility] Work Phone: Magnesiumon 11-19-2024 Magnesium [Mass/Vol] 2.06 mg/dL 1.60 - 2.40 mg/dL [facility] Magnesium [Mass/Vol]on 11-19 Interpretation and review of laboratory results Normal [facility] No Panel Informationon 11-19 [facility] Renal function 2000 panelon 11-19-2024 Albumin BCP dye [Mass/Vol] 3.4 g/dL 3.4 - 5.0 g/dL [facility] Anion gap [Moles/Vol] 14 mmol/L 10 - 2 0 mmol/L [facility] Calcium [Mass/Vol] 9.5 mg/dL 8.6 - 10. 6 mg/dL [facility] Chloride [Moles/Vol] 99 mmol/L 98 - 10 7 mmol/L [facility] CO2 [Moles/Vol] 25 mmol/L 21 - 32 mmol/L [facility] Creatinine [Mass/Vol] 1.15 mg/dL 0.50 - 1.30 mg/dL [facility] GFR/1.73 sq M.predicted among non-blacks MDRD (S/P/Bld) [Vol rate/Area] 77 mL/min/{1.73_m2} - PINF [facility] Glucose [Mass/Vol] 105 mg/dL High 74 - 99 mg/[facility] Interpretation and review of laboratory results Abnormal [facility] Phosphate [Mass/Vol] 2.8 mg/dL 2.5 - 4 .9 mg/dL [facility] Potassium [Moles/Vol] 3.9 mmol/L 3.5 - 5.3 mmol/L [facility] Sodium [Moles/Vol] 134 mmol/L Low 136 - 145 mmol/L [facility] Urea nitrogen [Mass/Vol] 15 mg/dL 6 - 23 mg/d L [facility] CBC W Auto Differential pane l (Bld)on 11-18-2024 Basophils (Bld) [#/Vol] 0.07 10*3/uL [facility] Basophils/100 WBC (Bld) 0.6 % 0.0 - 2.0 % [facility] Eosinophils (Bld) [#/Vol] 0.4 10*3/uL [facility] Eosinophils/100 WBC (Bld) 3.2 % 0.0 - 6.0 % [facility] Erythrocyte distribution width (RBC) [Ratio] 16.6 % High 11.5 - 14.5 % [facility] Hematocrit (Bld) [Volume fraction] 29.9 % Low 41.0 - 52.0 % [facility] Hemoglobin (Bld) [Mass/Vol] 9 g/dL Low 13.5 - 17.5 g/dL [facility] Immature granulocytes (Bld) [#/Vol] 0.04 10*3/uL [facility] Immature granulocytes/100 WBC (Bld) 0.3 % 0.0 - 0.9 % [facility] Interpretation and review of laboratory results Abnormal [facility] Lymphocytes (Bld) [#/Vol] 1.69 10*3/uL [facility] Lymphocytes/100 WBC (Bld) 13.7 % 13.0 - 44.0 % [facility] MCH (RBC) [Entitic mass] 26.9 pg 26. 0 - 34.[address] [facility] MCHC (RBC) [Mass/Vol] 30.1 g/dL Low 32.0 - 36.0 g/dL [facility] MCV (RBC) [Entitic vol] 89 fL 80 - [address] [facility] Monocytes (Bld) [#/Vol] 0.82 10*3/uL [facility] Monocytes/100 WBC (Bld) 6.7 % 2.0 - 10.0 % [facility] Neutrophils (Bld) [#/Vol] 9.3 10*3/uL High [facility] Neutrophils/100 WBC (Bld) 75.5 % 40.0 - 80.0 % [facility] Nucleated RBC/100 WBC (Bld) [Ratio] 0 % [facility] Platelets (Bld) [#/Vol] 785 10*3/uL High [facility] RBC (Bld) [#/Vol] 3.35 10*6/uL Low [facility] WBC (Bld) [#/Vol] 12.3 10*3/uL [facility] Magnesiumon 11-18-2024 Magnesium [Mass/Vol] 2.19 mg/dL 1.60 - 2.40 mg/dL [facility] Magnesium [Mass/Vol]on 11-18 Interpretation and review of laboratory results Normal [facility] No Panel Informationon 11-18 [facility] Renal function 2000 panelon 11-18-2024 Albumin BCP dye [Mass/Vol] 3.5 g/dL 3.4 - 5.0 g/dL [facility] Anion gap [Moles/Vol] 15 mmol/L 10 - 2 0 mmol/L [facility] Calcium [Mass/Vol] 9.9 mg/dL 8.6 - 10. 6 mg/dL [facility] Chloride [Moles/Vol] 99 mmol/L 98 - 10 7 mmol/L [facility] CO2 [Moles/Vol] 26 mmol/L 21 - 32 mmol/L [facility] Creatinine [Mass/Vol] 1.22 mg/dL 0.50 - 1.30 mg/dL [facility] GFR/1.73 sq M.predicted among non-blacks MDRD (S/P/Bld) [Vol rate/Area] 72 mL/min/{1.73_m2} - PINF [facility] Glucose [Mass/Vol] 91 mg/dL 74 - 99 mg/dL Uni [facility] Interpretation and review of laboratory results Abnormal [facility] Phosphate [Mass/Vol] 2.7 mg/dL 2.5 - 4 .9 mg/dL [facility] Potassium [Moles/Vol] 4.5 mmol/L 3.5 - 5.3 mmol/L [facility] Sodium [Moles/Vol] 135 mmol/L Low 136 - 145 mmol/L [facility] Urea nitrogen [Mass/Vol] 14 mg/dL 6 - 23 mg/d L [facility] Basic metabolic 2000 panelon 11-17-2024 Anion gap [Moles/Vol] 14 mmol/L 10 - 2 0 mmol/L [facility] Calcium [Mass/Vol] 9.3 mg/dL 8.6 - 10. 6 mg/dL [facility] Chloride [Moles/Vol] 100 mmol/L 98 - 10 7 mmol/L [facility] CO2 [Moles/Vol] 24 mmol/L 21 - 32 mmol/L [facility] Creatinine [Mass/Vol] 1.28 mg/dL 0.50 - 1.30 mg/dL [facility] GFR/1.73 sq M.predicted among non-blacks MDRD (S/P/Bld) [Vol rate/Area] 68 mL/min/{1.73_m2} - PINF [facility] Glucose [Mass/Vol] 95 mg/dL 74 - 99 mg/[facility] Potassium [Moles/Vol] 4 mmol/L 3.5 - 5.3 mmol/L [facility] Sodium [Moles/Vol] 134 mmol/L Low 136 - 145 mmol/L [facility] Urea nitrogen [Mass/Vol] 13 mg/dL 6 - 23 mg/d L [facility] CBC W Auto Differential pane l (Bld)on 11-17-2024 Basophils (Bld) [#/Vol] 0.06 10*3/uL [facility] Basophils/100 WBC (Bld) 0.5 % 0.0 - 2.0 % [facility] Eosinophils (Bld) [#/Vol] 0.4 10*3/uL [facility] Eosinophils/100 WBC (Bld) 3.6 % 0.0 - 6.0 % [facility] Erythrocyte distribution width (RBC) [Ratio] 16.8 % High 11.5 - 14.5 % [facility] Hematocrit (Bld) [Volume fraction] 26.6 % Low 41.0 - 52.0 % [facility] Hemoglobin (Bld) [Mass/Vol] 8.3 g/dL Low 13.5 - 17.5 g/dL [facility] Immature granulocytes (Bld) [#/Vol] 0.04 10*3/uL [facility] Immature granulocytes/100 WBC (Bld) 0.4 % 0.0 - 0.9 % [facility] Interpretation and review of laboratory results Abnormal [facility] Lymphocytes (Bld) [#/Vol] 2.08 10*3/uL [facility] Lymphocytes/100 WBC (Bld) 19 % 13.0 - 44.0 % [facility] MCH (RBC) [Entitic mass] 26.8 pg 26. 0 - 34.[address] [facility] MCHC (RBC) [Mass/Vol] 31.2 g/dL Low 32.0 - 36.0 g/dL [facility] MCV (RBC) [Entitic vol] 86 fL 80 - [address] [facility] Monocytes (Bld) [#/Vol] 1.09 10*3/uL High [facility] Monocytes/100 WBC (Bld) 9.9 % 2.0 - 10.0 % [facility] Neutrophils (Bld) [#/Vol] 7.3 10*3/uL [facility] Neutrophils/100 WBC (Bld) 66.6 % 40.0 - 80.0 % [facility] Nucleated RBC/100 WBC (Bld) [Ratio] 0 % [facility] Platelets (Bld) [#/Vol] 639 10*3/uL High [facility] RBC (Bld) [#/Vol] 3.1 10*6/uL Low [facility] WBC (Bld) [#/Vol] 11 10*3/uL [facility] Hepatic function 2000 panelo n 11-17-2024 Albumin BCP dye [Mass/Vol] 3.2 g/dL Low 3.4 - 5.0 g/dL [facility] ALP [Catalytic activity/Vol] 83 U/L 33 - 120 U/L [facility] ALT With P-5'-P [Catalytic activity/Vol] 20 U/L 10 - 52 U/L [facility] AST With P-5'-P [Catalytic activity/Vol] 13 U/L 9 - 39 U/L [facility] Bilirubin [Mass/Vol] 0.3 mg/dL 0.0 - 1 .2 mg/dL [facility] Bilirubin.direct [Mass/Vol] 0 mg/dL 0.0 - 0.3 mg/dL [facility] Protein [Mass/Vol] 7.2 g/dL 6.4 - 8.2 g/dL [facility] Magnesiumon 11-17-2024 Magnesium [Mass/Vol] 2.17 mg/dL 1.60 - 2.40 mg/dL [facility] No Panel Informationon 11-17 Interpretation and review of laboratory results Abnormal [facility] Interpretation and review of laboratory results Normal [facility] Phosphoruson 11-17-2024 Phosphate [Mass/Vol] 3.2 mg/dL 2.5 - 4 .9 mg/dL [facility] Basic metabolic 2000 panelon 11-16-2024 Anion gap [Moles/Vol] 15 mmol/L 10 - 2 0 mmol/L [facility] Calcium [Mass/Vol] 9.2 mg/dL 8.6 - 10. 6 mg/dL [facility] Chloride [Moles/Vol] 103 mmol/L 98 - 10 7 mmol/L [facility] CO2 [Moles/Vol] 22 mmol/L 21 - 32 mmol/L [facility] Creatinine [Mass/Vol] 1.25 mg/dL 0.50 - 1.30 mg/dL [facility] GFR/1.73 sq M.predicted among non-blacks MDRD (S/P/Bld) [Vol rate/Area] 70 mL/min/{1.73_m2} - PINF [facility] Glucose [Mass/Vol] 115 mg/dL High 74 - 99 mg/[facility] Interpretation and review of laboratory results Abnormal [facility] Potassium [Moles/Vol] 3.7 mmol/L 3.5 - 5.3 mmol/L [facility] Sodium [Moles/Vol] 136 mmol/L 136 - 145 mmol/L [facility] Urea nitrogen [Mass/Vol] 13 mg/dL 6 - 23 mg/d L [facility] CBC W Auto Differential pane l (Bld)on 11-16-2024 Erythrocyte distribution width (RBC) [Ratio] 16.5 % High 11.5 - 14.5 % [facility] Hematocrit (Bld) [Volume fraction] 26.1 % Low 41.0 - 52.0 % [facility] Hemoglobin (Bld) [Mass/Vol] 8.5 g/dL Low 13.5 - 17.5 g/dL [facility] Immature granulocytes (Bld) [#/Vol] 0.05 10*3/uL [facility] Immature granulocytes/100 WBC (Bld) 0.5 % 0.0 - 0.9 % [facility] MCH (RBC) [Entitic mass] 28.4 pg 26. 0 - 34.[address] [facility] MCHC (RBC) [Mass/Vol] 32.6 g/dL 32.0 - 36.0 g/dL [facility] MCV (RBC) [Entitic vol] 87 fL 80 - [address] [facility] Nucleated RBC/100 WBC (Bld) [Ratio] 0 % [facility] Platelets (Bld) [#/Vol] 619 10*3/uL High [facility] RBC (Bld) [#/Vol] 2.99 10*6/uL Low [facility] WBC (Bld) [#/Vol] 10 10*3/uL [facility] Hepatic function 2000 panelo n 11-16-2024 Albumin BCP dye [Mass/Vol] 3 g/dL Low 3.4 - 5.0 g/dL [facility] ALP [Catalytic activity/Vol] 78 U/L 33 - 120 U/L [facility] ALT With P-5'-P [Catalytic activity/Vol] 17 U/L 10 - 52 U/L [facility] AST With P-5'-P [Catalytic activity/Vol] 11 U/L 9 - 39 U/L [facility] Bilirubin [Mass/Vol] 0.2 mg/dL 0.0 - 1 .2 mg/dL [facility] Bilirubin.direct [Mass/Vol] 0 mg/dL 0.0 - 0.3 mg/dL [facility] Interpretation and review of laboratory results Abnormal [facility] Protein [Mass/Vol] 6.5 g/dL 6.4 - 8.2 g/dL [facility] Magnesiumon 11-16-2024 Magnesium [Mass/Vol] 2.08 mg/dL 1.60 - 2.40 mg/dL [facility] Manual differential performe d Ql (Bld)on 11-16-2024 Basophils (Bld) [#/Vol] 0 10*3/uL [facility] Basophils/100 WBC (Bld) 0 % 0.0 - 2.0 % [facility] Cells Counted Total (Bld) [#] 113 {cells} [facility] Eosinophils (Bld) [#/Vol] 0.26 10*3/uL [facility] Eosinophils/100 WBC (Bld) 2.6 % 0.0 - 6.0 % [facility] Lymphocytes (Bld) [#/Vol] 1.68 10*3/uL [facility] Lymphocytes/100 WBC (Bld) 16.8 % 13.0 - 44.0 % [facility] Monocytes (Bld) [#/Vol] 0.27 10*3/uL [facility] Monocytes/100 WBC (Bld) 2.7 % 2.0 - 10.0 % [facility] RBC morphology finding Nom (Bld) No significant RBC morphology present [facility] Segmented neutrophils (Bld) [#/Vol] 7.79 10*3/uL High [facility] Segmented neutrophils/100 WBC (Bld) 77.9 % 40.0 - 80.0 % [facility] No Panel Informationon 11-16 Interpretation and review of laboratory results Abnormal [facility] Interpretation and review of laboratory results Normal [facility] Phosphoruson 11-16-2024 Phosphate [Mass/Vol] 2.9 mg/dL 2.5 - 4 .9 mg/dL [facility] Bacteria identified Cx Nom ( Unsp spec)Ordered By: Phil Casas on 11-15-2024 Interpretation and review of laboratory results Abnormal [facility] Microscopic observation Gram stain Nom (Unsp spec) No polymorphonuclear leukocytes seen [facility] Microscopic observation Gram stain Nom (Unsp spec) No organisms seen [facility] Biopsyon 11-15-2024 [facility] Work Phone: [facility] Work Phone: CBC W Auto Differential pane l (Bld)on 11-15-2024 Basophils (Bld) [#/Vol] 0.06 10*3/uL [facility] Basophils/100 WBC (Bld) 0.6 % 0.0 - 2.0 % [facility] Eosinophils (Bld) [#/Vol] 0.28 10*3/uL [facility] Eosinophils/100 WBC (Bld) 2.6 % 0.0 - 6.0 % [facility] Erythrocyte distribution width (RBC) [Ratio] 16.4 % High 11.5 - 14.5 % [facility] Hematocrit (Bld) [Volume fraction] 24.9 % Low 41.0 - 52.0 % [facility] Hemoglobin (Bld) [Mass/Vol] 8.1 g/dL Low 13.5 - 17.5 g/dL [facility] Immature granulocytes (Bld) [#/Vol] 0.04 10*3/uL [facility] Immature granulocytes/100 WBC (Bld) 0.4 % 0.0 - 0.9 % [facility] Interpretation and review of laboratory results Abnormal [facility] Lymphocytes (Bld) [#/Vol] 1.3 10*3/uL [facility] Lymphocytes/100 WBC (Bld) 12.2 % 13.0 - 44.0 % [facility] MCH (RBC) [Entitic mass] 26.6 pg 26. 0 - 34.[address] [facility] MCHC (RBC) [Mass/Vol] 32.5 g/dL 32.0 - 36.0 g/dL [facility] MCV (RBC) [Entitic vol] 82 fL 80 - [address] [facility] Monocytes (Bld) [#/Vol] 1.04 10*3/uL High [facility] Monocytes/100 WBC (Bld) 9.7 % 2.0 - 10.0 % [facility] Neutrophils (Bld) [#/Vol] 7.95 10*3/uL [facility] Neutrophils/100 WBC (Bld) 74.5 % 40.0 - 80.0 % [facility] Nucleated RBC/100 WBC (Bld) [Ratio] 0 % [facility] Platelets (Bld) [#/Vol] 531 10*3/uL High [facility] RBC (Bld) [#/Vol] 3.04 10*6/uL [facility] WBC (Bld) [#/Vol] 10.7 10*3/uL [facility] Hepatic function 2000 panelo n 11-15-2024 Albumin BCP dye [Mass/Vol] 3 g/dL Low 3.4 - 5.0 g/dL [facility] ALP [Catalytic activity/Vol] 80 U/L 33 - 120 U/L [facility] ALT With P-5'-P [Catalytic activity/Vol] 21 U/L 10 - 52 U/L [facility] AST With P-5'-P [Catalytic activity/Vol] 18 U/L 9 - 39 U/L [facility] Bilirubin [Mass/Vol] 0.2 mg/dL 0.0 - 1 .2 mg/dL [facility] Bilirubin.direct [Mass/Vol] 0 mg/dL 0.0 - 0.3 mg/dL [facility] Interpretation and review of laboratory results Abnormal [facility] Protein [Mass/Vol] 6.3 g/dL Low 6.4 - 8.2 g/dL [facility] Magnesiumon 11-15-2024 Magnesium [Mass/Vol] 1.93 mg/dL 1.60 - 2.40 mg/dL [facility] Magnesium [Mass/Vol]on 11-15 Interpretation and review of laboratory results Normal [facility] No Panel Informationon 11-15 [facility] Renal function 2000 panelon 11-15-2024 Albumin BCP dye [Mass/Vol] 2.9 g/dL Low 3.4 - 5.0 g/dL [facility] Anion gap [Moles/Vol] 13 mmol/L 10 - 2 0 mmol/L [facility] Calcium [Mass/Vol] 9.4 mg/dL 8.6 - 10. 6 mg/dL [facility] Chloride [Moles/Vol] 105 mmol/L 98 - 10 7 mmol/L [facility] CO2 [Moles/Vol] 24 mmol/L 21 - 32 mmol/L [facility] Creatinine [Mass/Vol] 1.4 mg/dL High 0.50 - 1.30 mg/dL [facility] GFR/1.73 sq M.predicted among non-blacks MDRD (S/P/Bld) [Vol rate/Area] 61 mL/min/{1.73_m2} - PINF [facility] Glucose [Mass/Vol] 116 mg/dL High 74 - 99 mg/dL [facility] Interpretation and review of laboratory results Abnormal [facility] Phosphate [Mass/Vol] 2.5 mg/dL 2.5 - 4 .9 mg/dL [facility] Potassium [Moles/Vol] 3.7 mmol/L 3.5 - 5.3 mmol/L [facility] Sodium [Moles/Vol] 138 mmol/L 136 - 145 mmol/L [facility] Urea nitrogen [Mass/Vol] 10 mg/dL 6 - 23 mg/d L [facility] Tissue/Wound Culture/SmearOr dered By: Phil Casas on 11-15-2024 Bacteria identified Cx Nom (Unsp spec) (1+) Rare Proteus mirabilis Abnormal [facility] Bacteria identified Cx Nom ( Bld)on 11-14-2024 Interpretation and review of laboratory results Normal [facility] Blood Cultureon 11-14-2024 Bacteria identified Cx Nom (Bld) No growth at 4 days - FINAL REPORT [facility] CBC W Auto Differential pane l (Bld)on 11-14-2024 Basophils (Bld) [#/Vol] 0.06 10*3/uL [facility] Basophils/100 WBC (Bld) 0.6 % 0.0 - 2.0 % [facility] Eosinophils (Bld) [#/Vol] 0.4 10*3/uL [facility] Eosinophils/100 WBC (Bld) 4.3 % 0.0 - 6.0 % [facility] Erythrocyte distribution width (RBC) [Ratio] 16.5 % High 11.5 - 14.5 % [facility] Hematocrit (Bld) [Volume fraction] 24.1 % Low 41.0 - 52.0 % [facility] Hemoglobin (Bld) [Mass/Vol] 7.7 g/dL Low 13.5 - 17.5 g/dL [facility] Immature granulocytes (Bld) [#/Vol] 0.05 10*3/uL [facility] Immature granulocytes/100 WBC (Bld) 0.5 % 0.0 - 0.9 % [facility] Interpretation and review of laboratory results Abnormal [facility] Lymphocytes (Bld) [#/Vol] 1.02 10*3/uL Low [facility] Lymphocytes/100 WBC (Bld) 11 % 13.0 - 44.0 % [facility] MCH (RBC) [Entitic mass] 27.6 pg 26. 0 - 34.[address] [facility] MCHC (RBC) [Mass/Vol] 32 g/dL 32.0 - 36.0 g/dL [facility] MCV (RBC) [Entitic vol] 86 fL 80 - [address] [facility] Monocytes (Bld) [#/Vol] 1.05 10*3/uL High [facility] Monocytes/100 WBC (Bld) 11.4 % 2.0 - 10.0 % [facility] Neutrophils (Bld) [#/Vol] 6.67 10*3/uL [facility] Neutrophils/100 WBC (Bld) 72.2 % 40.0 - 80.0 % [facility] Nucleated RBC/100 WBC (Bld) [Ratio] 0 % [facility] Platelets (Bld) [#/Vol] 507 10*3/uL High [facility] RBC (Bld) [#/Vol] 2.79 10*6/uL Low [facility] WBC (Bld) [#/Vol] 9.3 10*3/uL [facility] Calcium (24H U) [Mass/Time]o n 11-14-2024 Calcium, 24 Hour Urine 384 High [facility] Collection duration (Unsp spec) [address] [facility] Creatinine (24H U) [Mass/Time] 1.62 [facility] Creatinine (24H U) [Mass/Vol] 52.3 mg/dL 20.0 - 370.0 mg/dL [facility] Interpretation and review of laboratory results Abnormal [facility] Specimen volume (24H U) 3.1 L U [facility] Calcium, 24 Hour Urineon Calcium (24H U) [Mass/Time] 12.4 mg/dL [facility] Cobalamin (Vitamin B12) [Mas s/Vol]on 11-14-2024 Interpretation and review of laboratory results Normal [facility] Comprehensive metabolic 2000 panelon 11-14-2024 Albumin BCP dye [Mass/Vol] 2.7 g/dL Low 3.4 - 5.0 g/dL [facility] ALP [Catalytic activity/Vol] 80 U/L 33 - 120 U/L [facility] ALT With P-5'-P [Catalytic activity/Vol] 17 U/L 10 - 52 U/L [facility] Anion gap [Moles/Vol] 13 mmol/L 10 - 2 0 mmol/L [facility] AST With P-5'-P [Catalytic activity/Vol] 15 U/L 9 - 39 U/L [facility] Bilirubin [Mass/Vol] 0.3 mg/dL 0.0 - 1 .2 mg/dL [facility] Calcium [Mass/Vol] 9.1 mg/dL 8.6 - 10. 6 mg/dL [facility] Chloride [Moles/Vol] 107 mmol/L 98 - 10 7 mmol/L [facility] CO2 [Moles/Vol] 22 mmol/L 21 - 32 mmol/L [facility] Creatinine [Mass/Vol] 1.38 mg/dL High 0.50 - 1.30 mg/dL [facility] GFR/1.73 sq M.predicted among non-blacks MDRD (S/P/Bld) [Vol rate/Area] 62 mL/min/{1.73_m2} - PINF [facility] Glucose [Mass/Vol] 97 mg/dL 74 - 99 mg/dL Uni [facility] Interpretation and review of laboratory results Abnormal [facility] Potassium [Moles/Vol] 3.8 mmol/L 3.5 - 5.3 mmol/L [facility] Protein [Mass/Vol] 5.9 g/dL Low 6.4 - 8.2 g/dL [facility] Sodium [Moles/Vol] 138 mmol/L 136 - 145 mmol/L [facility] Urea nitrogen [Mass/Vol] 8 mg/dL 6 - 23 mg/d L [facility] Folateon 11-14-2024 Folate [Mass/Vol] 4.6 ng/mL Low 5.0 - PINF ng/mL [facility] Folate [Mass/Vol]on 11-14-19 Interpretation and review of laboratory results Abnormal [facility] IgAon 11-14-2024 IgA [Mass/Vol] 503 mg/dL High 70 - 400 mg/dL [facility] Work Phone: IgA [Mass/Vol]on 11-14-2024 Interpretation and review of laboratory results Abnormal [facility] Work Phone: [facility] Work Phone: IgGOrdered By: Ruba guy on 11-14-2024 IgG [Mass/Vol] 1160 mg/dL 700 - 1600 mg/dL [facility] IgG [Mass/Vol]Ordered By: Nik Abel on 11-14-2024 Interpretation and review of laboratory results Normal [facility] IgMon 11-14-2024 IgM [Mass/Vol] 60 mg/dL 40 - 230 mg/dL [facility] Work Phone: IgM [Mass/Vol]on 11-14-2024 Interpretation and review of laboratory results Normal [facility] Work Phone: [facility] Work Phone: M. tuberculosis stim IFN-g a nd spot count panel (Bld)on 11-14-2024 Gamma interferon negative control spot count (Bld) [#] Passed [facility] M. tuberculosis stim IFN-g CFP10 Ag spot count (Bld) [#] 4 [facility] M. tuberculosis stim IFN-g ESAT-6 Ag spot count (Bld) [#] 0 [facility] M. tuberculosis stim IFN-g Ql (Bld) [Interp] Negative Negative [facility] Mitogen stimulated gamma interferon positive control spot count (Bld) [#] Passed [facility] Magnesiumon 11-14-2024 Magnesium [Mass/Vol] 1.78 mg/dL 1.60 - 2.40 mg/dL [facility] Magnesium [Mass/Vol]on 11-14 Interpretation and review of laboratory results Normal [facility] No Panel Informationon 11-14 [facility] PTH-Related Peptideon 2024 Parathyrin related protein [Moles/Vol] 12 pmol/L High < or = 4.2 [facility] Parathyrin related protein [ Moles/Vol]on 11-14-2024 Interpretation and review of laboratory results Abnormal [facility] Pathologist review Pathologi st comment (Bld) [Interp]Ordered By: Jose C Hensley on 11-14-2024 Pathologist Review-CBC Differential Thrombocytosis favor reactive. Anemia with no specific morphologic findings. [facility] Work Phone: [facility] Work Phone: Vitamin B12on 11-14-2024 Cobalamin (Vitamin B12) [Mass/Vol] 328 pg/mL 211 - 911 pg/mL [facility] 1,25-dihydroxyvitamin D3 [Ma ss/Vol]on 11-13-2024 1,25-dihydroxyvitamin D [Mass/Vol] 35.9 pg/mL 19.9 - 79.3 pg/mL [facility] Blood type and Indirect anti body screen panel (Bld)on 11-13-2024 ABO group Nom (Bld) [facility] antibody screen Ql Negative [facility] D Ag Ql (Bld) Positive [facility] CBC W Auto Differential pane l (Bld)Ordered By: Seble Tate on 11-13-2024 Basophils (Bld) [#/Vol] 0.02 10*3/uL [facility] Basophils/100 WBC (Bld) 0.4 % 0.0 - 2.0 % [facility] Eosinophils (Bld) [#/Vol] 0.2 10*3/uL [facility] Eosinophils/100 WBC (Bld) 3.6 % 0.0 - 6.0 % [facility] Erythrocyte distribution width (RBC) [Ratio] 16.7 % High 11.5 - 14.5 % [facility] Hematocrit (Bld) [Volume fraction] 16 % Low 41.0 - 52.0 % [facility] Hemoglobin (Bld) [Mass/Vol] 4.9 g/dL Critically low 13.5 - 17.5 g/dL [facility] Immature granulocytes (Bld) [#/Vol] 0.01 10*3/uL [facility] Immature granulocytes/100 WBC (Bld) 0.2 % 0.0 - 0.9 % [facility] Interpretation and review of laboratory results Abnormal [facility] Lymphocytes (Bld) [#/Vol] 0.4 10*3/uL Low [facility] Lymphocytes/100 WBC (Bld) 7.1 % 13.0 - 44.0 % [facility] MCH (RBC) [Entitic mass] 28.3 pg 26. 0 - 34.[address] [facility] MCHC (RBC) [Mass/Vol] 30.6 g/dL Low 32.0 - 36.0 g/dL [facility] MCV (RBC) [Entitic vol] 93 fL 80 - [address] [facility] Monocytes (Bld) [#/Vol] 0.55 10*3/uL [facility] Monocytes/100 WBC (Bld) 9.8 % 2.0 - 10.0 % [facility] Neutrophils (Bld) [#/Vol] 4.44 10*3/uL [facility] Neutrophils/100 WBC (Bld) 78.9 % 40.0 - 80.0 % [facility] Nucleated RBC/100 WBC (Bld) [Ratio] 0 % [facility] Platelets (Bld) [#/Vol] 306 10*3/uL [facility] RBC (Bld) [#/Vol] 1.73 10*6/uL [facility] WBC (Bld) [#/Vol] 5.6 10*3/uL [facility] CBC W Auto Differential pane l (Bld)on 11-13-2024 Basophils (Bld) [#/Vol] 0.07 10*3/uL [facility] Basophils/100 WBC (Bld) 0.6 % 0.0 - 2.0 % [facility] Eosinophils (Bld) [#/Vol] 0.44 10*3/uL [facility] Eosinophils/100 WBC (Bld) 3.9 % 0.0 - 6.0 % [facility] Erythrocyte distribution width (RBC) [Ratio] 16.6 % High 11.5 - 14.5 % [facility] Hematocrit (Bld) [Volume fraction] 26.2 % Low 41.0 - 52.0 % [facility] Hemoglobin (Bld) [Mass/Vol] 8.3 g/dL Low 13.5 - 17.5 g/dL [facility] Immature granulocytes (Bld) [#/Vol] 0.11 10*3/uL [facility] Immature granulocytes/100 WBC (Bld) 1 % High 0.0 - 0.9 % [facility] Interpretation and review of laboratory results Abnormal [facility] Lymphocytes (Bld) [#/Vol] 1.43 10*3/uL [facility] Lymphocytes/100 WBC (Bld) 12.8 % 13.0 - 44.0 % [facility] MCH (RBC) [Entitic mass] 27.9 pg 26. 0 - 34.[address] [facility] MCHC (RBC) [Mass/Vol] 31.7 g/dL Low 32.0 - 36.0 g/dL [facility] MCV (RBC) [Entitic vol] 88 fL 80 - [address] [facility] Monocytes (Bld) [#/Vol] 1.07 10*3/uL High [facility] Monocytes/100 WBC (Bld) 9.6 % 2.0 - 10.0 % [facility] Neutrophils (Bld) [#/Vol] 8.02 10*3/uL High [facility] Neutrophils/100 WBC (Bld) 72.1 % 40.0 - 80.0 % [facility] Nucleated RBC/100 WBC (Bld) [Ratio] 0 % [facility] Platelets (Bld) [#/Vol] 576 10*3/uL High [facility] RBC (Bld) [#/Vol] 2.97 10*6/uL Low Unive [facility] WBC (Bld) [#/Vol] 11.1 10*3/uL [facility] CBC panel Auto (Bld)on 11-13 Erythrocyte distribution width (RBC) [Ratio] 16.4 % High 11.5 - 14.5 % [facility] Hematocrit (Bld) [Volume fraction] 25.5 % Low 41.0 - 52.0 % [facility] Hemoglobin (Bld) [Mass/Vol] 8.2 g/dL Low 13.5 - 17.5 g/dL [facility] Interpretation and review of laboratory results Abnormal [facility] MCH (RBC) [Entitic mass] 27.8 pg 26. 0 - 34.[address] [facility] MCHC (RBC) [Mass/Vol] 32.2 g/dL 32.0 - 36.0 g/dL [facility] MCV (RBC) [Entitic vol] 86 fL 80 - [address] [facility] Nucleated RBC/100 WBC (Bld) [Ratio] 0 % [facility] Platelets (Bld) [#/Vol] 570 10*3/uL High [facility] RBC (Bld) [#/Vol] 2.95 10*6/uL Low [facility] WBC (Bld) [#/Vol] 9.4 10*3/uL [facility] Calcium, ionizedon Calcium.ionized (Bld) [Moles/Vol] 1.06 mmol/L Low 1.1 - 1.33 mmol/L [facility] Calcium.ionized (Bld) [Moles /Vol]on 11-13-2024 Interpretation and review of laboratory results Abnormal [facility] Comprehensive metabolic 2000 panelon 11-13-2024 Albumin BCP dye [Mass/Vol] 2.8 g/dL Low 3.4 - 5.0 g/dL [facility] ALP [Catalytic activity/Vol] 89 U/L 33 - 120 U/L [facility] ALT With P-5'-P [Catalytic activity/Vol] 17 U/L 10 - 52 U/L [facility] Anion gap [Moles/Vol] 11 mmol/L 10 - 2 0 mmol/L [facility] AST With P-5'-P [Catalytic activity/Vol] 15 U/L 9 - 39 U/L [facility] Bilirubin [Mass/Vol] 0.3 mg/dL 0.0 - 1 .2 mg/dL [facility] Calcium [Mass/Vol] 9.8 mg/dL 8.6 - 10. 6 mg/dL [facility] Chloride [Moles/Vol] 108 mmol/L High 98 - 10 7 mmol/L [facility] CO2 [Moles/Vol] 23 mmol/L 21 - 32 mmol/L [facility] Creatinine [Mass/Vol] 1.4 mg/dL High 0.50 - 1.30 mg/dL [facility] GFR/1.73 sq M.predicted among non-blacks MDRD (S/P/Bld) [Vol rate/Area] 61 mL/min/{1.73_m2} - PINF [facility] Glucose [Mass/Vol] 117 mg/dL High 74 - 99 mg/dL Uni [facility] Interpretation and review of laboratory results Abnormal [facility] Potassium [Moles/Vol] 3.6 mmol/L 3.5 - 5.3 mmol/L [facility] Protein [Mass/Vol] 5.9 g/dL Low 6.4 - 8.2 g/dL [facility] Sodium [Moles/Vol] 138 mmol/L 136 - 145 mmol/L [facility] Urea nitrogen [Mass/Vol] 9 mg/dL 6 - 23 mg/d L [facility] Albumin BCP dye [Mass/Vol] 2.8 g/dL Low 3.4 - 5.0 g/dL [facility] ALP [Catalytic activity/Vol] 79 U/L 33 - 120 U/L [facility] ALT With P-5'-P [Catalytic activity/Vol] 16 U/L 10 - 52 U/L [facility] Anion gap [Moles/Vol] 12 mmol/L 10 - 2 0 mmol/L [facility] AST With P-5'-P [Catalytic activity/Vol] 13 U/L 9 - 39 U/L [facility] Bilirubin [Mass/Vol] 0.4 mg/dL 0.0 - 1 .2 mg/dL [facility] Calcium [Mass/Vol] 11.1 mg/dL High 8.6 - 10. 6 mg/dL [facility] Chloride [Moles/Vol] 106 mmol/L 98 - 10 7 mmol/L [facility] CO2 [Moles/Vol] 25 mmol/L 21 - 32 mmol/L [facility] Creatinine [Mass/Vol] 1.41 mg/dL High 0.50 - 1.30 mg/dL [facility] GFR/1.73 sq M.predicted among non-blacks MDRD (S/P/Bld) [Vol rate/Area] 60 mL/min/{1.73_m2} Low - PINF [facility] Glucose [Mass/Vol] 106 mg/dL High 74 - 99 mg/dL Uni [facility] Potassium [Moles/Vol] 3.7 mmol/L 3.5 - 5.3 mmol/L [facility] Protein [Mass/Vol] 6.2 g/dL Low 6.4 - 8.2 g/dL [facility] Sodium [Moles/Vol] 139 mmol/L 136 - 145 mmol/L [facility] Urea nitrogen [Mass/Vol] 9 mg/dL 6 - 23 mg/d L [facility] Gas panel (BldV)on 5 Anion gap 4 (BldV) [Moles/Vol] 9 mmol/L Low 10.0 - 25.0 mmol/L [facility] Base excess Calc (BldV) [Moles/Vol] -1.8000 mmol/L -2.0 - 3.0 mmol/L [facility] Calcium.ionized (BldV) [Moles/Vol] 1.43 mmol/L High 1.10 - 1.33 mmol/L [facility] Chloride (BldV) [Moles/Vol] 110 mmol/L High 98 - 107 mmol/L [facility] CO2 (BldV) [Partial pressure] 29 mm[Hg] Low [facility] Glucose [Mass/Vol] 130 mg/dL High 74 - 99 mg/dL [facility]3 (Bld) [Moles/Vol] 21.6 mmol/L Low 22.0 - 26.0 mmol/L [facility] Hematocrit Est (Bld) [Volume fraction] 16 % Low 41.0 - 52.0 % [facility] Hemoglobin (Bld) [Mass/Vol] 5.3 g/dL Critically low 13.5 - 17.5 g/dL [facility] Inhaled oxygen concentration 21 % [facility] Interpretation and review of laboratory results Abnormal [facility] Lactate (BldV) [Moles/Vol] 1.5 mmol/L 0.4 - 2.0 mmol/L [facility] Oxygen (BldV) [Partial pressure] 75 mm[Hg] High [facility] Oxygen saturation in Venous blood 99 % High 45 - 75 % [facility] Oxyhemoglobin (BldV) [Mass fraction] 96 % High 45.0 - 75.0 % [facility] pH (BldV) 7.48 [pH] High 7.33 - 7.[address] [facility] Potassium (BldV) [Moles/Vol] 3.8 mmol/L 3.5 - 5.3 mmol/L [facility] Sodium (BldV) [Moles/Vol] 137 mmol/L 136 - 145 mmol/L [facility] Glucose Test strip manual (B ld) [Mass/Vol]on 11-13-2024 Glucose [Mass/Vol] 96 mg/dL 74 - 99 mg/dL [facility] Interpretation and review of laboratory results Normal [facility] Haptoglobinon 11-13-2024 Haptoglobin Nephelometry [Mass/Vol] 319 mg/dL High 30 - 200 mg/dL [facility] Haptoglobin Nephelometry [Ma ss/Vol]on 11-13-2024 Interpretation and review of laboratory results Abnormal [facility] Hepatic function 2000 panelo n 11-13-2024 Albumin BCP dye [Mass/Vol] 2.8 g/dL Low 3.4 - 5.0 g/dL [facility] ALP [Catalytic activity/Vol] 89 U/L 33 - 120 U/L [facility] ALT With P-5'-P [Catalytic activity/Vol] 17 U/L 10 - 52 U/L [facility] AST With P-5'-P [Catalytic activity/Vol] 15 U/L 9 - 39 U/L [facility] Bilirubin [Mass/Vol] 0.3 mg/dL 0.0 - 1 .2 mg/dL [facility] Bilirubin.direct [Mass/Vol] 0.1 mg/dL 0.0 - 0.3 mg/dL [facility] Interpretation and review of laboratory results Abnormal [facility] Protein [Mass/Vol] 5.9 g/dL Low 6.4 - 8.2 g/dL [facility] Lactateon 11-13-2024 Lactate [Moles/Vol] 1.5 mmol/L 0.4 - 2. 0 mmol/L [facility] Lactate Dehydrogenaseon 10-20 LDH Lactate to pyruvate reaction [Catalytic activity/Vol] 62 U/L Low 84 - 246 U/L [facility] Lactate [Moles/Vol]on 2024 Interpretation and review of laboratory results Normal [facility] Magnesiumon 11-13-2024 Magnesium [Mass/Vol] 1.23 mg/dL Low 1.60 - 2.40 mg/dL [facility] Magnesium [Mass/Vol] 1.86 mg/dL 1.60 - 2.40 mg/dL [facility] Magnesium [Mass/Vol]on 11-13 Interpretation and review of laboratory results Abnormal [facility] Interpretation and review of laboratory results Normal [facility] No Panel Informationon 11-13 Interpretation and review of laboratory results Abnormal [facility] Interpretation and review of laboratory results Abnormal [facility] Phosphate [Mass/Vol]on 11-13 Interpretation and review of laboratory results Normal [facility] Phosphoruson 11-13-2024 Phosphate [Mass/Vol] 3 mg/dL 2.5 - 4 .9 mg/dL [facility] Renal function 2000 panelon 11-13-2024 Albumin BCP dye [Mass/Vol] 2.1 g/dL Low 3.4 - 5.0 g/dL [facility] Anion gap [Moles/Vol] 9 mmol/L [facility] Calcium [Mass/Vol] 7.4 mg/dL Low 8.6 - 10. 6 mg/dL [facility] Chloride [Moles/Vol] 120 mmol/L High 98 - 10 7 mmol/L [facility] CO2 [Moles/Vol] 17 mmol/L Low 21 - 32 mmol/L [facility] Creatinine [Mass/Vol] 0.93 mg/dL 0.50 - 1.30 mg/dL [facility] eGFR - PINF [facility] Glucose [Mass/Vol] 83 mg/dL 74 - 99 mg/dL Uni [facility] Phosphate [Mass/Vol] 1.6 mg/dL Low 2.5 - 4 .9 mg/dL [facility] Potassium [Moles/Vol] 2.7 mmol/L Critically low 3.5 - 5.3 mmol/L [facility] Sodium [Moles/Vol] 143 mmol/L 136 - 145 mmol/L [facility] Urea nitrogen [Mass/Vol] 6 mg/dL 6 - 23 mg/d L [facility] Reticulocytes panel (Bld)on 11-13-2024 Hemoglobin (Reticulocytes) [Entitic mass] 24 pg Low 28 - [address] [facility] Immature Retic fraction 15.5 % NINF - 16.0 % [facility] Interpretation and review of laboratory results Abnormal [facility] Reticulocytes (Bld) [#/Vol] 0.023 10*3/uL [facility] Reticulocytes/100 RBC (Bld) 1.3 % 0.5 - 2.0 % [facility] Serum Protein Electrophoresi s + ImmunofixationOrdered By: [place] on 11-13-2024 Albumin [Mass/Vol] 2.9 g/dL Low 3.4 - 5.0 g/dL [facility] Work Phone: 36 Alpha 1 Globulin 0.5 g/dL 0.2 - 0.6 g/dL [facility] Work Phone: 36 Alpha 2 Globulin 0.9 g/dL 0.4 - 1.1 g/dL [facility] Work Phone: 36 Beta Globulin 1 g/dL 0.5 - 1.2 g/dL [facility] Work Phone: 36 Gamma 1.1 g/dL 0.5 - 1.4 g/dL [facility] Work Phone: 36 Immunofixation Comment [facility] Work Phone: 36 Interpretation and review of laboratory results Abnormal [facility] Work Phone: 36 Path Review - Serum Immunofixation [facility] Work Phone: Path Review - Serum Protein [facility]: 36 Protein [Mass/Vol] 0.2 g/dL High [facility] Work Phone: Protein Electrophoresis Comment [facility] Work Phone: 36 [facility] Work Phone: Slide Requeston 11-13-2024 [facility] Work Phone: TSH with reflex to Free T4 i f abnormalon 11-13-2024 Interpretation and review of laboratory results Normal [facility] TSH Qn 1.25 m[IU]/L [facility] Vancomycinon 11-13-2024 Vancomycin [Mass/Vol] 26.4 ug/mL High 5.0 - 20.0 ug/mL [facility] Vancomycin [Mass/Vol]on 10-20 [facility] Biopsyon 11-12-2024 [facility] Work Phone: [facility] Work Phone: CBC W Auto Differential pane l (Bld)on 11-12-2024 Basophils (Bld) [#/Vol] 0.07 10*3/uL [facility] Basophils/100 WBC (Bld) 0.6 % 0.0 - 2.0 % [facility] Eosinophils (Bld) [#/Vol] 0.55 10*3/uL [facility] Eosinophils/100 WBC (Bld) 4.8 % 0.0 - 6.0 % [facility] Erythrocyte distribution width (RBC) [Ratio] 16.7 % High 11.5 - 14.5 % [facility] Hematocrit (Bld) [Volume fraction] 27.2 % Low 41.0 - 52.0 % [facility] Hemoglobin (Bld) [Mass/Vol] 8.2 g/dL Low 13.5 - 17.5 g/dL [facility] Immature granulocytes (Bld) [#/Vol] 0.04 10*3/uL [facility] Immature granulocytes/100 WBC (Bld) 0.3 % 0.0 - 0.9 % [facility] Interpretation and review of laboratory results Abnormal [facility] Lymphocytes (Bld) [#/Vol] 1.73 10*3/uL [facility] Lymphocytes/100 WBC (Bld) 15.1 % 13.0 - 44.0 % [facility] MCH (RBC) [Entitic mass] 27 pg 26. 0 - 34.[address] [facility] MCHC (RBC) [Mass/Vol] 30.1 g/dL Low 32.0 - 36.0 g/dL [facility] MCV (RBC) [Entitic vol] 90 fL 80 - [address] [facility] Monocytes (Bld) [#/Vol] 1.26 10*3/uL High [facility] Monocytes/100 WBC (Bld) 11 % 2.0 - 10.0 % [facility] Neutrophils (Bld) [#/Vol] 7.8 10*3/uL High [facility] Neutrophils/100 WBC (Bld) 68.2 % 40.0 - 80.0 % [facility] Nucleated RBC/100 WBC (Bld) [Ratio] 0 % [facility] Platelets (Bld) [#/Vol] 576 10*3/uL High [facility] RBC (Bld) [#/Vol] 3.04 10*6/uL [facility] WBC (Bld) [#/Vol] 11.5 10*3/uL High [facility] Comprehensive metabolic 2000 panelon 11-12-2024 Albumin BCP dye [Mass/Vol] 2.9 g/dL Low 3.4 - 5.0 g/dL [facility] ALP [Catalytic activity/Vol] 73 U/L 33 - 120 U/L [facility] ALT With P-5'-P [Catalytic activity/Vol] 12 U/L 10 - 52 U/L [facility] Anion gap [Moles/Vol] 13 mmol/L 10 - 2 0 mmol/L [facility] AST With P-5'-P [Catalytic activity/Vol] 7 U/L Low 9 - 39 U/L [facility] Bilirubin [Mass/Vol] 0.3 mg/dL 0.0 - 1 .2 mg/dL [facility] Calcium [Mass/Vol] 11.4 mg/dL High 8.6 - 10. 6 mg/dL [facility] Chloride [Moles/Vol] 107 mmol/L 98 - 10 7 mmol/L [facility] CO2 [Moles/Vol] 23 mmol/L 21 - 32 mmol/L [facility] Creatinine [Mass/Vol] 1.49 mg/dL High 0.50 - 1.30 mg/dL [facility] GFR/1.73 sq M.predicted among non-blacks MDRD (S/P/Bld) [Vol rate/Area] 56 mL/min/{1.73_m2} Low - PINF [facility] Glucose [Mass/Vol] 93 mg/dL 74 - 99 mg/dL [facility] [facility] Interpretation and review of laboratory results Abnormal [facility] Potassium [Moles/Vol] 3.6 mmol/L 3.5 - 5.3 mmol/L [facility] Protein [Mass/Vol] 6.1 g/dL Low 6.4 - 8.2 g/dL [facility] Sodium [Moles/Vol] 139 mmol/L 136 - 145 mmol/L [facility] Urea nitrogen [Mass/Vol] 11 mg/dL 6 - 23 mg/d L [facility] HCV RNA panel MERON+probeOrder ed By: Cassandra Guzmán on 11-12-2024 HCV RNA MERON+probe [Log units/Vol] [facility] HCV RNA MERON+probe Qn Not detected Not detected [facility] Magnesiumon 11-12-2024 Magnesium [Mass/Vol] 1.91 mg/dL 1.60 - 2.40 mg/dL [facility] Magnesium [Mass/Vol]on 11-12 Interpretation and review of laboratory results Normal [facility] No Panel Informationon 11-12 [facility] Comprehensive metabolic 2000 panelon 11-11-2024 Albumin BCP dye [Mass/Vol] 2.8 g/dL Low 3.4 - 5.0 g/dL [facility] ALP [Catalytic activity/Vol] 71 U/L 33 - 120 U/L [facility] ALT With P-5'-P [Catalytic activity/Vol] 9 U/L Low 10 - 52 U/L [facility] Anion gap [Moles/Vol] 9 mmol/L Low 10 - 2 0 mmol/L [facility] AST With P-5'-P [Catalytic activity/Vol] 6 U/L Low 9 - 39 U/L [facility] Bilirubin [Mass/Vol] 0.3 mg/dL 0.0 - 1 .2 mg/dL [facility] Calcium [Mass/Vol] 11.2 mg/dL High 8.6 - 10. 6 mg/dL [facility] Chloride [Moles/Vol] 108 mmol/L High 98 - 10 7 mmol/L [facility] CO2 [Moles/Vol] 26 mmol/L 21 - 32 mmol/L [facility] Creatinine [Mass/Vol] 1.4 mg/dL High 0.50 - 1.30 mg/dL [facility] GFR/1.73 sq M.predicted among non-blacks MDRD (S/P/Bld) [Vol rate/Area] 61 mL/min/{1.73_m2} - PINF [facility] Glucose [Mass/Vol] 101 mg/dL High 74 - 99 mg/dL [facility] Potassium [Moles/Vol] 3.8 mmol/L 3.5 - 5.3 mmol/L [facility] Protein [Mass/Vol] 5.6 g/dL Low 6.4 - 8.2 g/dL [facility] Sodium [Moles/Vol] 139 mmol/L 136 - 145 mmol/L [facility] Urea nitrogen [Mass/Vol] 11 mg/dL 6 - 23 mg/d L [facility] HBV core Ab Ql (S)on 025 Interpretation and review of laboratory results Normal [facility] HBV surface Ab Qn (S)on 10-20 Interpretation and review of laboratory results Normal [facility] HBV surface Ag IA Qlon 11-11 Interpretation and review of laboratory results Normal [facility] HIV 1+2 Ab+HIV1 p24 Ag IA Ql on 11-11-2024 Interpretation and review of laboratory results Normal [facility] HIV 1/2 Antigen/Antibody Scr een with Reflex to Confirmationon 11-11-2024 HIV 1+2 Ab+HIV1 p24 Ag IA Ql Non-Reactive Nonreactive [facility] Hepatitis B Core Antibody, T otalon 11-11-2024 HBV core Ab Ql (S) Non-Reactive Nonreactive [facility] Hepatitis B surface antibody on 11-11-2024 HBV surface Ab Qn (S) NINF [facility] Hepatitis B surface antigeno n 11-11-2024 HBV surface Ag IA Ql Non-Reactive [facility]reactive [facility] Magnesiumon 11-11-2024 Magnesium [Mass/Vol] 1.98 mg/dL 1.60 - 2.40 mg/dL [facility] Magnesium [Mass/Vol]on 11-11 Interpretation and review of laboratory results Normal [facility] No Panel Informationon 11-11 Interpretation and review of laboratory results Abnormal [facility] Phosphoruson 11-11-2024 Phosphate [Mass/Vol] 2.7 mg/dL 2.5 - 4 .9 mg/dL [facility] Urine Protein Electrophoresi son 11-11-2024 Albumin Elph (U) [Mass fraction] 16.4 % [facility] Work Phone: Alpha 1 globulin Elph (U) [Mass fraction] 29.9 % [facility] Work Phone: Alpha 2 globulin Elph (U) [Mass fraction] 9.4 % [facility] Work Phone: Beta globulin Elph (U) [Mass fraction] 21.8 % [facility] Work Phone: Gamma globulin Elph (U) [Mass fraction] 22.5 % [facility] Work Phone: Path Review-Urine Protein Electrophoresis [facility] Work Phone: Urine Electrophoresis Comment Normal. [facility] Work Phone: [phone] [facility] Work Phone: Vancomycinon 11-11-2024 Vancomycin [Mass/Vol] 27 ug/mL High 5.0 - 20.0 ug/mL [facility] Vancomycin [Mass/Vol]on 10-20 [facility] ECG 12-LEADon 11-10-2024 ECG 12-LEAD Ventricular Rate 77 Atrial Rate 77 P-R Interval 146 QRS Duration 108 Q-T Interval 368 QTC Calculation(Bazett) 416 P [place] 55 R [place] 72 T [place] 66 QRS Count 13 Q Onset 211 P Onset 138 P Offset 195 T Offset 395 QTC Fredericia 399 Diagnosis Normal sinus rhythm Normal ECG When compared with ECG of 13-OCT-2024 11:30, Vent. rate has decreased BY [address] no longer depressed in Inferior leads ST no longer depressed in Anterolateral leads T wave inversion no longer evident in Anterior leads Confirmed by Bobby Villa ([id number]) on 11/28/2024 9:05:21 AM Normal [facility] 30on 11-09-2024 30 Problem: Knowledge Deficit Goal: Patient/family/careg iver demonstrates understanding of disease process, treatment plan, medications, and discharge instructions Outcome: Progressing Problem: Potential for Compromised Skin Integrity Goal: Skin Integrity is Maintained or Improved Outcome: Progressing Goal: Nutritional status is improving Outcome: Progressing Problem: Urinary Incontinence Goal: Perineal skin integrity is maintained or improved Outcome: Progressing Problem: Potential for Falls Goal: I will remain free of falls Outcome: Progressing Problem: Discharge Barriers Goal: My discharge needs are met Outcome: Progressing Normal [facility] CBC W Auto Differential pane l (Bld)Ordered By: Marysol El on 11-09-2024 Erythrocyte distribution width (RBC) [Ratio] 16.4 % High 11.5 - 15.0 % [facility] Hematocrit (Bld) [Volume fraction] 27.7 % Low 40.0 - 52.0 % [facility] Hemoglobin (Bld) [Mass/Vol] 8.8 g/dL Low 13.0 - 18.0 g/dL [facility] Interpretation and review of laboratory results Abnormal [facility] MCH (RBC) [Entitic mass] 27.7 pg 26. 0 - 34.0 pg [facility] MCHC (RBC) [Mass/Vol] 31.8 % 30.5 - 36.0 % [facility] MCV (RBC) [Entitic vol] 87.1 fL 77.0 - 99.0 fL [facility] Platelet mean volume (Bld) [Entitic vol] 8.8 fL Low 9.0 - 12.7 fL [facility] Platelets (Bld) [#/Vol] 524 10*3/uL High 140 - 440 10*3/uL [facility] RBC (Bld) [#/Vol] 3.18 10*6/uL Low 4.40 - 5.9 0 10*6/uL [facility] WBC (Bld) [#/Vol] 13 10*3/uL High 3.6 - 10.7 10*3/uL [facility] CBC WITH AUTO DIFFERENTIALon 11-09-2024 Erythrocyte distribution width (RBC) [Ratio] 16.4 % High 11.5-15.0 [facility] Comment on above: Performed By: #### L [id number], [id number] ####Gambling Broker: JAZLYN JIMENEZ ([phone])[address] Hematocrit (Bld) [Volume fraction] 27.7 % Low 40.0-52.0 [facility] Comment on above: Performed By: #### L [id number], [id number] ####Gambling Broker: JAZLYN JIMENEZ ([phone])[address] Hemoglobin (Bld) [Mass/Vol] 8.8 g/dL Low 13.0-18.0 [facility] Comment on above: Performed By: #### L [id number], [id number] ####Gambling Broker: JAZLYN JIMENEZ ([phone])[address] MCH (RBC) [Entitic mass] 27.7 pg Normal 26.0-34.0 [facility] Comment on above: Performed By: #### L [id number], [id number] ####Gambling Broker: JAZLYN JIMENEZ ([phone])[address] MCHC 31.8 % Normal 30.5-36.0 [facility] Comment on above: Performed By: #### L [id number], [id number] ####Gambling Broker: JAZLYN [id number])[facility] [place] [address] MCV (RBC) [Entitic vol] 87.1 fL Normal 77.0-99.0 [facility] Comment on above: Performed By: #### L [id number], [id number] ####Gambling Broker: JAZLYN JIMENEZ ([phone])[facility])[address] [place] [address] Platelet mean volume (Bld) [Entitic vol] 8.8 fL Low 9.0-12.7 [facility] Comment on above: Performed By: #### L [id number], [id number] ####Gambling Broker: JAZLYN JIMENEZ ([phone])[facility])[address] [place] [address] Platelets (Bld) [#/Vol] 524 10*3/uL High 140-440 [facility] Comment on above: Performed By: #### L [id number], [id number] ####Gambling Broker: JAZLYN JIMENEZ ([phone])[facility])[address] [place] [address] RBC (Bld) [#/Vol] 3.18 10*6/uL Low 4.40-5.90 [facility] Comment on above: Performed By: #### L [id number], [id number] ####Gambling Broker: JAZLYN JIMENEZ ([phone])[facility])[address] [place] [address] WBC (Bld) [#/Vol] 13.0 10*3/uL High 3.6-10.7 [facility] Comment on above: Performed By: #### L [id number], [id number] ####Gambling Broker: JAZLYN JIMENEZ ([phone])[facility])[address] [place] [address] COMPREHENSIVE METABOLIC PANE Yuriy 11-09-2024 Albumin [Mass/Vol] 2.5 g/dL Low 3.5-5.0 [facility] Comment on above: Performed By: #### L [id number] ####Gambling Broker: JAZLYN JIMENEZ ([phone])[facility] ([facility])[address] [place] [address] ALP [Catalytic activity/Vol] 70 U/L Normal 40-150 [facility] Comment on above: Performed By: #### L [id number] ####Gambling Broker: JAZLYN JIMENEZ ([phone])[facility] ([facility])[address] [place] [address] [place] ALT [Catalytic activity/Vol] U/L Normal <40 [facility] Comment on above: Performed By: #### L [id number] ####Gambling Broker: JAZLYN JIMENEZ ([phone])[facility] ([facility])[address] [place] [address] Anion gap [Moles/Vol] 6 mmol/L Normal 3-13 [facility] Comment on above: Performed By: #### L [id number] ####Gambling Broker: JAZLYN JIMENEZ ([phone])[facility] ([facility])[address] [place] [address] AST [Catalytic activity/Vol] 11 U/L Normal <34 [facility] Comment on above: Performed By: #### L [id number] ####Gambling Broker: JAZLYN JIMENEZ ([phone])[facility] ([facility])[address] [place] [address] Bilirubin [Mass/Vol] 0.4 mg/dL Normal <1.2 [facility] Comment on above: Performed By: #### L [id number] ####Gambling Broker: JAZLYN JIMENEZ ([phone])[facility] ([facility])[address] [place] [address] Calcium [Mass/Vol] 12.1 mg/dL High 8.4-10.2 [facility] Comment on above: Performed By: #### L [id number] ####Gambling Broker: JAZLYN JIMENEZ ([phone])[facility] ([facility])[address] [place] [address] Chloride [Moles/Vol] 107 mmol/L Normal 98-107 [facility] Comment on above: Performed By: #### L [id number] ####Gambling Broker: JAZLYN JIMENEZ ([phone])[facility])[address] [place] [address] CO2 [Moles/Vol] 24 mmol/L Normal 22-29 [facility] Comment on above: Performed By: #### L [id number] ####Gambling Broker: JAZLYN JIMENEZ ([phone])[facility])[address] [place] [address] Creatinine [Mass/Vol] 1.42 mg/dL High 0.72-1.25 [facility] Comment on above: Performed By: #### L [id number] ####Gambling Broker: JAZLYN JIMENEZ ([phone])[facility])[address] [place] [address] GLOMERULAR FILTRATION RATE ML/MIN/1.73 SQ M.PREDICTED 59.8 mL/min/1.73m*2 Low >60.0 [facility] Comment on above: Result Comment: Calc ulation based on the Chronic Kidney Disease Epidemiology Collaboration (CKD-EPI) equation refit without adjustment for race Performed By: #### L [id number] ####Gambling Broker: JAZLYN JIMENEZ ([phone])[facility])[address] [place] [address] Glucose [Mass/Vol] 101 mg/dL High 74-100 [facility] Comment on above: Performed By: #### L [id number] ####Gambling Broker: JAZLYN JIMENEZ ([phone])[facility])[address] [place] [address] Potassium [Moles/Vol] 3.7 mmol/L Normal 3.5-5.1 [facility] Comment on above: Result Comment: [facility] potassium values may be up to 0.5 mmol/L lower than serum values. Performed By: #### L [id number] ####Gambling Broker: JAZLYN JIMENEZ ([phone])[facility])[address] [place] [address] Protein [Mass/Vol] 6.3 g/dL Low 6.4-8.3 [facility] Comment on above: Performed By: #### L [id number] ####Gambling Broker: JAZLYN JIMENEZ ([phone])[facility])[address] [place] [address] Sodium [Moles/Vol] 137 mmol/L Normal 136-145 [facility] Comment on above: Performed By: #### L [id number] ####Gambling Broker: JAZLYN JIMENEZ ([id number])[facility])[address] [place] [address] Urea nitrogen [Mass/Vol] 19 mg/dL Normal 9-23 [facility] Comment on above: Performed By: #### L [id number] ####Gambling Broker: JAZLYN JIMENEZ ([phone])[facility])[address] [place] [address] Comprehensive metabolic 1998 panelon 11-09-2024 Albumin [Mass/Vol] 2.5 g/dL Low 3.5 - 5.0 g/dL [facility] ALP [Catalytic activity/Vol] 70 U/L 40 - 150 U/L [facility] ALT [Catalytic activity/Vol] U/L NINF - 40 U/L [facility] Anion gap [Moles/Vol] 6 mmol/L 3 - 13 mmol/L [facility] AST [Catalytic activity/Vol] 11 U/L [facility] U/L [facility] Bilirubin [Mass/Vol] 0.4 mg/dL NINF - 1.2 mg/dL [facility] Calcium [Mass/Vol] 12.1 mg/dL High 8.4 - 10. 2 mg/dL [facility] Chloride [Moles/Vol] 107 mmol/L 98 - 10 7 mmol/L [facility] CO2 [Moles/Vol] 24 mmol/L 22 - 29 mmol/L [facility] Creatinine [Mass/Vol] 1.42 mg/dL High 0.72 - 1.25 mg/dL [facility] GFR/1.73 sq M.predicted (S/P/Bld) [Vol rate/Area] 59.8 mL/min Low - PINF [facility] Comment on above: Calculation based on the Chronic Kidney Disease Epidemiology Collaboration (CKD-EPI) equation refit without adjustment for race Glucose [Mass/Vol] 101 mg/dL High 74 - 100 mg/dL [facility] Interpretation and review of laboratory results Abnormal [facility] Potassium [Moles/Vol] 3.7 mmol/L 3.5 - 5.1 mmol/L [facility] Comment on above: Plasma potassium jeri ues may be up to 0.5 mmol/L lower than serum values. Protein [Mass/Vol] 6.3 g/dL Low 6.4 - 8.3 g/dL [facility] Sodium [Moles/Vol] 137 mmol/L 136 - 145 mmol/L [facility] Urea nitrogen [Mass/Vol] 19 mg/dL 9 - 23 mg/d L [facility] [employer] Consulton 11-09-2024 Consult Attestation signed by Cara Busch MD at 12/30/2024 12:45 PM ATTENDING ADDENDUM Patient Active Problem List Diagnosis Abscess Abscess of left hip Sepsis, due to unspecified organism, unspecified whether acute organ dysfunction present (HCC) I independently saw the above patient and reviewed the recent events, imaging, labs, vital signs; I performed a physical exam and ROS on the same date of service as above. My findings agree with the above note except for any details corrected below. A complete review of systems was obtained and is negative except as stated in HPI. Chief Complaint: -L buttock wound PmHx: Hidradenitis PsHx: Wound debridement of hidradenitis at FmHx: No bleeding or clotting disorderse Injuries/problem list: -L buttock wound -Hidradenitis with abscess Surgeries: -None Management/Plan: -Per Dr. Wilks -Patient with extensive and complex hidradenitis being actively managed at with a clinical trial -Patient has been accepted for transfer -Continue dressing changes as well as IV antibiotics -No indication for acute surgical intervention -Surgery will sign off Patient evaluated on 11/09/2024 Thank you for this consultation and allowing us to participate in the management of your patient. Please contact me for any concerns or questions regarding the recommendations above. Total Care Time throughout the day today was >= 55 minutes (including chart/data review/analysis, care coordination, and ierc-jz-nzrz encounter), and was spent discussing/counselin g the patient/family regarding the diagnosis, care plan, and importance of compliance with the treatment plan for Kevan La. I examined the patient independently. I reviewed relevant data myself and may have also done so in the context of team rounds. A full chart review was performed. Level of Medical Decision Making: []High [x]Moderate []Low Complexity: []Acute or chronic illness/injury posing a threat to life or bodily function without treatment (HIGH) []Chronic illness with severe exacerbation, progression, or side effect of treatment (HIGH) []Chronic illness with mild to moderate exacerbation, progression, or side effect of treatment (MOD) []Previously undiagnosed (new) problem with uncertain prognosis (MOD) [x]Acute illness with systemic symptoms (MOD) []Acute, complicated injury (MOD) []Multiple stable chronic illnesses (MOD) Risk: []Parental controlled substances (HIGH) []Decision resuscitate de-escalate care because of poor prognosis (HIGH) []Decision regarding elective major surgery with identified patient or procedure risk factors (HIGH) []Decision regarding emergency major surgery (HIGH) []Drug or therapy requiring intensive monitoring (HIGH) []Requires close neuro-critical care monitoring due to risk of neurological deterioration (HIGH) [x]Prescription drug management (MOD) []Decision regarding minor surgery with identified patient or procedure risk factors (MOD) []Decision regarding elective major surgery without limited identified patient or procedure risk factors (MOD) []Diagnosis or treatment significant limited by social determinants of health (MOD) Personally Reviewed/Independent ly interpreted patient's: [x]Epic notes []Radiology studies [x]Labs []EKG []Ordering tests []Other Discussed/ With: [x]Patient/Family [x]RN []Consultants []Primary Team []SW/TCC []Other Time was spent: -Reviewing the medical record, including recent tests and results -Ordering prescription medications/tests and procedures -Communicating results to the patient/family/careg iver -Counseling/educatin g the patient/family/careg iver -Documenting clinical information in the patient's electronic record -Co-ordination of care for the patient -Performing a medically appropriate exam and evaluation Cara Busch MD, FACS Division of Trauma, Surgical Critical Care, & Acute Care Surgery Department of Surgery [facility] Department of General Surgery Surgical Service - ACS Resident Consult Note 11/09/2024 CHIEF COMPLAINT: Chief Complaint Patient presents with Wound Check Pt arrives from SNF for possible sepsis. Had wound on buttock drained at in Sep. Has not had IV antibiotics at facility. Hx of rare skin condition with frequent abscesses. Aox4. Some N/V. Hypotensive 80-90 systolic. Reason for Consult: L buttock and thigh wound, previous debridement at , hx of HS HISTORY OF PRESENT ILLNESS: Kevan La is a 49 y.o. male with significant past medical history of HS who presents with L buttock and thigh wound, previous debridement at , hx of HS. Surgery was consulted for evaluation of wounds. Patient states he's has been dealing with these wounds since August. He had (more content not included)... Normal [facility] ED Nursing Noteon 11-09-2024 ED Nursing Note This RN spoke to Enrique at transfer center for patient update. He stated that they are currently waiting for a bed assignment for the patient at [facility]. Normal [facility] MANUAL DIFFERENTIALon 2024 ANISOCYTOSIS PRESENCE IN BLOOD BY LIGHT MICROSCOPY Slight Abnormal (none) [facility] Comment on above: Performed By: #### L [id number], [id number] ####Gambling Broker: JAZLYN JIMENEZ ([phone])[facility] ([facility])[address] [place] [address] BAND NEUTROPHILS TOTAL PER COUNTED LEUKOCYTES BY MANUAL COUNT 5 Normal [facility] Comment on above: Performed By: #### L [id number], [id number] ####Gambling Broker: JAZLYN JIMENEZ ([phone])[facility] [place] [address] [place] BANDS 0.7 10*3/uL High <=0.0 [facility] Comment on above: Performed By: #### L [id number], [id number] ####Gambling Broker: JAZLYN JIMENEZ ([phone])[facility] ([facility])[address] [place] [address] PENNY CELLS PRESENCE IN BLOOD BY LIGHT MICROSCOPY Slight Abnormal (none) [facility] Comment on above: Performed By: #### L [id number], [id number] ####Gambling Broker: JAZLYN JIMENEZ ([phone])[facility] ([facility])[address] [place] [address] CELLS COUNTED TOTAL (#) IN BLOOD 100 Normal [facility] Comment on above: Performed By: #### L [id number], [id number] ####Gambling Broker: JAZLYN JIMENEZ ([phone])[facility] ([facility])[address] [place] [address] DIFFERENTIAL METHOD Manual differential performed Normal [facility] Comment on above: Performed By: #### L [id number], [id number] ####Gambling Broker: JAZLYN JIMENEZ ([phone])[facility] ([facility])[address] [place] [address] [place] EOSINOPHILS (10*3/UL) IN BLOOD BY MANUAL COUNT 1.0 10*3/uL High 0.0-0.5 [facility] Comment on above: Performed By: #### L [id number], [id number] ####Gambling Broker: JAZLYN JIMENEZ ([phone])[facility] ([facility])[address] [place] [address] [place] EOSINOPHILS TOTAL PER COUNTED LEUKOCYTES BY MANUAL COUNT 8 High 0-1 [facility] Comment on above: Performed By: #### L [id number], [id number] ####Gambling Broker: JAZLYN JIMENEZ ([phone])[facility] ([facility])[address] [place] [address] [place] EOSINOPHILS/100 LEUKOCYTES IN BLOOD BY MANUAL COUNT 8 % High 0-6 [facility] Comment on above: Performed By: #### Kamila [id number], [id number] ####Gambling Broker: JAZLYN JIMENEZ ([phone])[facility])[address] [place] [address] LEUKOCYTE MORPHOLOGY FINDING IN BLOOD Normal Normal [facility] Comment on above: Performed By: #### L [id number], [id number] ####Gambling Broker: JAZLYN JIMENEZ ([phone])[facility])[address] [place] [address] LEUKOCYTES (10*3/UL) NUCLEATED ERYTHROCYTE ADJUST 13.0 10*3/uL High 3.6-10.7 [facility] Comment on above: Performed By: #### Kamila [id number], [id number] ####Gambling Broker: JAZLYN JIMENZE ([phone])[facility])[address] [place] [address] LYMPHOCYTES (10*3/UL) IN BLOOD BY MANUAL COUNT 1.4 10*3/uL Normal 1.0-4.3 [facility] Comment on above: Performed By: #### Kamila [id number], [id number] ####Gambling Broker: JAZLYN JIMENEZ ([phone])[facility])[address] [place] [address] LYMPHOCYTES TOTAL PER COUNTED LEUKOCYTES BY MANUAL COUNT 11 Normal [facility] Comment on above: Performed By: #### Kamila [id number], [id number] ####Gambling Broker: JAZLYN JIMENEZ ([phone])[facility])[address] [place] [address] [place] LYMPHOCYTES/100 LEUKOCYTES IN BLOOD BY MANUAL COUNT 11 % Low 15-45 [facility] Comment on above: Performed By: #### L [id number], [id number] ####Gambling Broker: JAZLYN JIMENEZ ([phone])[address] MACROCYTES (PRESENCE) IN BLOOD BY LIGHT MICROSCOPY Slight Abnormal (none) [facility] Comment on above: Performed By: #### L [id number], [id number] ####Gambling Broker: JAZLYN JIMENEZ ([phone])[facility] ([facility])[address] [place] [address] [place] MONOCYTES (10*3/UL) IN BLOOD BY MANUAL COUNT 1.0 10*3/uL High 0.0-0.9 [facility] Comment on above: Performed By: #### L [id number], [id number] ####Gambling Broker: JAZLYN JIMENEZ ([phone])[facility] ([facility])[address] [place] [address] [place] MONOCYTES TOTAL PER COUNTED LEUKOCYTES BY MANUAL COUNT 8 Normal [facility] Comment on above: Performed By: #### L [id number], [id number] ####Gambling Broker: JAZLYN JIMENEZ ([phone])[facility] ([facility])[address] [place] [address] [place] MONOCYTES/100 LEUKOCYTES IN BLOOD BY MANUAL COUNT 8 % Normal 5-13 [facility] Comment on above: Performed By: #### L [id number], [id number] ####Gambling Broker: JAZLYN JIMENEZ ([phone])[facility] ([facility])[address] [place] [address] [place] NEUTROPHILS (SEGS+BANDS) (10*3/UL) BY MANUAL COUNT 9.5 10*3/uL High 1.8-7.0 [facility] Comment on above: Performed By: #### L [id number], [id number] ####Gambling Broker: JAZLYN JIMENEZ ([phone])[facility] ([facility])[address] [place] [address] [place] NEUTROPHILS BAND FORM/100 LEUKOCYTES IN BLOOD BY MANUAL COUNT 5 % High <=0 [facility] Comment on above: Performed By: #### L [id number], [id number] ####Gambling Broker: JAZLYN JIMENEZ ([phone])[facility] ([facility])[address] [place] [address] [place] NEUTROPHILS TOTAL PER COUNTED LEUKOCYTES BY MANUAL COUNT 68 Normal [facility] Comment on above: Performed By: #### L [id number], [id number] ####Gambling Broker: JAZLYN JIMENEZ ([phone])[facility] ([facility])[address] [place] [address] OVALOCYTES PRESENCE IN BLOOD BY LIGHT MICROSCOPY Slight Abnormal (none) [facility] Comment on above: Performed By: #### L [id number], [id number] ####Gambling Broker: JAZLYN JIMENEZ ([phone])[facility] ([facility])[address] [place] [address] PLATELET MORPHOLOGY IN BLOOD Normal Normal [facility] Comment on above: Performed By: #### L [id number], [id number] ####Gambling Broker: JAZLYN JIMENEZ ([phone])[facility] ([facility])[address] [place] [address] POIKILOCYTOSIS (PRESENCE) IN BLOOD BY LIGHT MICROSCOPY Slight Abnormal (none) [facility] Comment on above: Performed By: #### L [id number], [id number] ####Gambling Broker: JAZLYN JIMENEZ ([phone])[facility] ([facility])[address] [place] [address] SEGEMENTED NEUTROPHILS/100 LEUKOCYTES BY MANUAL COUNT 68 % Normal 38-82 [facility] Comment on above: Performed By: #### L [id number], [id number] ####Gambling Broker: JAZLYN JIMENEZ ([phone])[facility] ([facility])[address] [place] [address] SEGMENTED NEUTROPHILS (10*3/UL)IN BLOOD BY MANUAL COUNT 9.5 10*3/uL High 1.8-7.5 [facility] Comment on above: Performed By: #### L [id number], [id number] ####Gambling Broker: JAZLYN JIMENEZ ([phone])[facility] ([facility])[address] [place] [address] TARGET CELLS IN BLOOD BY LIGHT MICROSCOPY Slight Abnormal (none) [facility] Comment on above: Performed By: #### L [id number], [id number] ####Gambling Broker: JAZLYN JIMENEZ ([phone])[facility] ([facility])[address] [place] [address] Manual differential performe d Ql (Bld)Ordered By: Flores Rausch on 11-09-2024 Anisocytosis Ql (Bld) Slight Abnormal (none) [facility] Band form neutrophils (Bld) [#/Vol] 0.7 10*3/uL High NINF - 0.0 10*3/uL [facility] Band form neutrophils/100 WBC (Bld) 5 % High NINF - 0 % [facility] Bands Manual 5 [facility] Wilber cells LM Ql (Bld) Slight Abnormal (none) [facility] Cells Counted Total (Bld) [#] 100 {cells} [facility] Differential Method Manual differential performed [facility] Eosinophils (Bld) [#/Vol] 1 10*3/uL High 0.0 - 0.5 10*3/uL [facility] Eosinophils Manual 8 High 0 - 1 [facility] Eosinophils/100 WBC (Bld) 8 % High 0 - 6 % [facility] Interpretation and review of laboratory results Abnormal [facility] Leukocyte morphology finding Nom (Bld) Normal [facility] Lymphocytes (Bld) [#/Vol] 1.4 10*3/uL 1.0 - 4.3 10*3/uL [facility] Lymphocytes Manual 11 [facility] Lymphocytes/100 WBC (Bld) 11 % Low 15 - 45 % [facility] Macrocytes Ql (Bld) Slight Abnormal (none) [facility] Monocytes (Bld) [#/Vol] 1 10*3/uL High 0.0 - 0.9 10*3/uL [facility] Monocytes Manual 8 [facility] Monocytes/100 WBC (Bld) 8 % 5 - 13 % [facility] Neutrophils (Bld) [#/Vol] 9.5 10*3/uL High 1.8 - 7.5 10*3/uL [facility] Neutrophils Manual 68 [facility] Ovalocytes LM Ql (Bld) Slight Abnormal (none) [facility] Platelet morphology finding Nom (Bld) Normal [facility] Poikilocytosis LM Ql (Bld) Slight Abnormal (none) [facility] Segmented neutrophils/100 WBC (Bld) 68 % 38 - 82 % [facility] Target cells LM Ql (Bld) Slight Abnormal (none) [facility] WBC corrected for nucl RBC (Bld) [#/Vol] 13 10*3/uL High 3.6 - 10.7 10*3/uL [facility] Nursing Noteon 11-09-2024 Nursing Note transfer center called, stated still no bed are available but checking on if any changes in pt condition. Updated vitals given and isolation status confirmed. Enrique at the transfer center given unit phone number and he stated they will reach out when bed available. [facility] Progress Noteon 11-09-2024 Progress Note Patient is accepted for transfer to pending bed availability. Will continue to monitor on antibiotics. Will hold off on US or biopsy of enhancing lesion at this time, although in the setting of recent infection the etiology is most likely infectious. Surgical team has signed off. Normal [facility] BLOOD CULTUREon 11-08-2024 Bacteria identified Cx Nom (Bld) BLOOD CULTURE Reference No growth at 5 days ORDER COMMENTS: Hidradenitis Blood Collection Site: Left Arm [ S = SUSCEPTIBLE R = RESISTANT I = INTERMEDIATE S-DD = Susceptible-dose dependent NS = Non-susceptible NO = No Interpretation ] [facility] Comment on above: Performed By: #### L [id number], [id number] #### Gambling Broker: JAZLYN JIMENEZ ([phone]) [address] Bacteria identified Cx Nom (Bld) BLOOD CULTURE Reference No growth at 5 days ORDER COMMENTS: Blood Collection Site: Right Arm [ S = SUSCEPTIBLE R = RESISTANT I = INTERMEDIATE S-DD = Susceptible-dose dependent NS = Non-susceptible NO = No Interpretation ] [facility] Comment on above: Performed By: #### L [id number], [id number] #### Gambling Broker: JAZLYN JIMENEZ ([phone]) [facility] ([facility]) [address] [place] [address] CBC W Auto Differential pane l (Bld)Ordered By: Vielka Cortez on 11-08-2024 Basophils (Bld) [#/Vol] 0.1 10*3/uL 0.0 - 0.2 10*3/uL [facility] Basophils/100 WBC (Bld) 0.5 % 0.0 - 2.0 % [facility] Eosinophils (Bld) [#/Vol] 0.2 10*3/uL 0.0 - 0.5 10*3/uL [facility] Eosinophils/100 WBC (Bld) 1.4 % 0.0 - 6.0 % [facility] Erythrocyte distribution width (RBC) [Ratio] 16.5 % High 11.5 - 15.0 % [facility] Hematocrit (Bld) [Volume fraction] 31.1 % Low 40.0 - 52.0 % [facility] Hemoglobin (Bld) [Mass/Vol] 10.4 g/dL Low 13.0 - 18.0 g/dL [facility] [employer] Immature granulocytes (Bld) [#/Vol] 0.1 10*3/uL High NINF - 0.1 10*3/uL [facility] Immature granulocytes/100 WBC (Bld) 0.5 % 0.0 - 2.0 % [facility] Interpretation and review of laboratory results Abnormal [facility] Lymphocytes (Bld) [#/Vol] 1.6 10*3/uL 1.0 - 4.3 10*3/uL [facility] Lymphocytes/100 WBC (Bld) 11.7 % Low 15.0 - 45.0 % [facility] MCH (RBC) [Entitic mass] 28.3 pg 26. 0 - 34.0 pg [facility] MCHC (RBC) [Mass/Vol] 33.4 % 30.5 - 36.0 % [facility] MCV (RBC) [Entitic vol] 84.5 fL 77.0 - 99.0 fL [facility] Monocytes (Bld) [#/Vol] 1.5 10*3/uL High 0.0 - 0.9 10*3/uL [facility] Monocytes/100 WBC (Bld) 10.9 % 5.0 - 13.0 % [facility] Neutrophils (Bld) [#/Vol] 10.4 10*3/uL High 1.8 - 7.5 10*3/uL [facility] Neutrophils/100 WBC (Bld) 75 % 38.0 - 82.0 % [facility] Nucleated RBC/100 WBC (Bld) [Ratio] 0 % [facility] Platelet mean volume (Bld) [Entitic vol] 9.5 fL 9.0 - 12.7 fL [facility] Platelets (Bld) [#/Vol] 634 10*3/uL High 140 - 440 10*3/uL [facility] RBC (Bld) [#/Vol] 3.68 10*6/uL Low 4.40 - 5.9 0 10*6/uL [facility] WBC (Bld) [#/Vol] 13.9 10*3/uL High 3.6 - 10.7 10*3/uL [facility] CBC WITH AUTO DIFFERENTIALon 11-08-2024 Basophils (Bld) [#/Vol] 0.1 10*3/uL Normal 0.0-0.2 [facility] Comment on above: Performed By: #### L [id number] ####Gambling Broker: JAZLYN JIMENEZ ([phone])[facility])[address] [place] [address] Basophils/100 WBC (Bld) 0.5 % Normal 0.0-2.0 [facility] Comment on above: Performed By: #### L [id number] ####Gambling Broker: JAZLYN JIMENEZ ([phone])[facility] ([facility])[address] [place] [address] Eosinophils (Bld) [#/Vol] 0.2 10*3/uL Normal 0.0-0.5 [facility] Comment on above: Performed By: #### L [id number] ####Gambling Broker: JAZLYN JIMENEZ ([phone])[facility])[address] [place] [address] Eosinophils/100 WBC (Bld) 1.4 % Normal 0.0-6.0 [facility] Comment on above: Performed By: #### L [id number] ####Gambling Broker: JAZLYN JIMENEZ ([phone])[facility])[address] [place] [address] Erythrocyte distribution width (RBC) [Ratio] 16.5 % High 11.5-15.0 [facility] Comment on above: Performed By: #### L [id number] ####Gambling Broker: JAZLYN JIMENEZ ([phone])[facility])[address] [place] [address] Hematocrit (Bld) [Volume fraction] 31.1 % Low 40.0-52.0 [facility] Comment on above: Performed By: #### L [id number] ####Gambling Broker: JAZLYN JIMENEZ ([phone])[facility])[address] [place] [address] Hemoglobin (Bld) [Mass/Vol] 10.4 g/dL Low 13.0-18.0 [facility] Comment on above: Performed By: #### L [id number] ####Gambling Broker: JAZLYN JIMENEZ ([phone])[facility])[address] [place] [address] IMMATURE GRANS % 0.5 % Normal 0.0-2.0 [facility] Comment on above: Performed By: #### L [id number] ####Gambling Broker: JAZLYN JIMENEZ ([phone])[address] IMMATURE GRANS ABSOLUTE 0.1 10*3/uL High <0.1 [facility] Comment on above: Performed By: #### L [id number] ####Gambling Broker: JAZLYN JIMENEZ ([phone])[facility])[address] [place] [address] Lymphocytes (Bld) [#/Vol] 1.6 10*3/uL Normal 1.0-4.3 [facility] Comment on above: Performed By: #### L [id number] ####Gambling Broker: JAZLYN JIMENEZ ([phone])[facility])[address] [place] [address] Lymphocytes/100 WBC (Bld) 11.7 % Low 15.0-45.0 [facility] Comment on above: Performed By: #### L [id number] ####Gambling Broker: JAZLYN JIMENEZ ([phone])[facility])[address] [place] [address] MCH (RBC) [Entitic mass] 28.3 pg Normal 26.0-34.0 [facility] Comment on above: Performed By: #### L [id number] ####Gambling Broker: JAZLYN JIMENEZ ([phone])[facility] ([facility])[address] [place] [address] MCHC 33.4 % Normal 30.5-36.0 [facility] Comment on above: Performed By: #### L [id number] ####Gambling Broker: JAZLYN JIMENEZ ([phone])[facility] ([facility])[address] [place] [address] MCV (RBC) [Entitic vol] 84.5 fL Normal 77.0-99.0 [facility] Comment on above: Performed By: #### L [id number] ####Gambling Broker: JAZLYN JIMENEZ ([phone])[facility] ([facility])[address] [place] [address] Monocytes (Bld) [#/Vol] 1.5 10*3/uL High 0.0-0.9 [facility] Comment on above: Performed By: #### L [id number] ####Gambling Broker: JAZLYN JIMENEZ ([phone])[facility] ([facility])[address] [place] [address] Monocytes/100 WBC (Bld) 10.9 % Normal 5.0-13.0 [facility] Comment on above: Performed By: #### L [id number] ####Gambling Broker: JAZLYN JIMENEZ ([phone])[facility] ([facility])[address] [place] [address] NEUTROPHILS ABSOLUTE 10.4 10*3/uL High 1.8-7.5 [facility] Comment on above: Performed By: #### L [id number] ####Gambling Broker: JAZLYN JIMENEZ ([phone])[facility] ([facility])[address] [place] [address] Neutrophils/100 WBC (Bld) 75.0 % Normal 38.0-82.0 [facility] Comment on above: Performed By: #### L [id number] ####Gambling Broker: JAZLYN JIMENEZ ([phone])[facility] ([facility])[address] [place] [address] [place] NRBC 0.0 /100 WBCs Normal 0.0-2.0 [facility] Comment on above: Performed By: #### L [id number] ####Gambling Broker: JAZLYN JIMENEZ ([phone])[facility] ([facility])[address] [place] [address] Platelet mean volume (Bld) [Entitic vol] 9.5 fL Normal 9.0-12.7 [facility] Comment on above: Performed By: #### L [id number] ####Gambling Broker: JAZLYN JIMENEZ ([phone])[facility] ([facility])[address] [place] [address] Platelets (Bld) [#/Vol] 634 10*3/uL High 140-440 [facility] Comment on above: Performed By: #### L [id number] ####Gambling Broker: JAZLYN JIMENZE ([phone])[facility] ([facility])[address] [place] [address] RBC (Bld) [#/Vol] 3.68 10*6/uL Low 4.40-5.90 [facility] Comment on above: Performed By: #### L [id number] ####Gambling Broker: JAZLYN JIMENEZ ([phone])[facility] ([facility])[address] [place] [address] WBC (Bld) [#/Vol] 13.9 10*3/uL High 3.6-10.7 [facility] Comment on above: Performed By: #### L [id number] ####Gambling Broker: JAZLYN JIMENEZ ([phone])[facility] ([facility])[address] [place] [address] COMPLETE URINALYSISon 2024 BILIRUBIN, TOTAL PRESENCE IN URINE Negative Normal Negative [facility] Comment on above: Performed By: #### L [id number] ####Gambling Broker: JAZLYN JIMENEZ ([phone])[facility] ([facility])[address] [place] [address] Clarity (U) Clear Normal Clear [facility] Comment on above: Performed By: #### L [id number] ####Gambling Broker: JAZLYN JIMENEZ ([phone])[facility] ([facility])[address] [place] [address] Color (U) Light Yellow Normal Lt. Yellow [facility] Comment on above: Performed By: #### L [id number] ####Gambling Broker: JAZLYN JIMENEZ ([phone])[facility])[address] [place] [address] GLUCOSE (MG/DL) IN URINE Normal Normal Normal (<70 ) [facility] Comment on above: Performed By: #### L [id number] ####Gambling Broker: JAZLYN JIMENEZ ([phone])[facility])[address] [place] [address] HEMOGLOBIN PRESENCE IN URINE Negative Normal Negative [facility] Comment on above: Performed By: #### L [id number] ####Gambling Broker: JAZLYN JIMENEZ ([phone])[facility] ([facility])[address] [place] [address] Ketones Ql (U) Negative Normal Negative [facility] Comment on above: Performed By: #### L [id number] ####Gambling Broker: JAZLYN JIMENEZ ([phone])[facility])[address] [place] [address] LEUKOCYTE ESTERASE PRESENCE IN URINE BY TEST STRIP Negative Normal Negative [facility] Comment on above: Performed By: #### L [id number] ####Gambling Broker: JAZLYN JIMENEZ ([phone])[facility] ([facility])[address] [place] [address] NITRITE PRESENCE IN URINE Negative Normal Negative [facility] Comment on above: Performed By: #### L [id number] ####Gambling Broker: JAZLYN JIMENEZ ([phone])[facility])[address] [place] [address] pH (U) 5.5 [pH] Normal 5.0-8.0 [facility] Comment on above: Performed By: #### L [id number] ####Gambling Broker: JAZLYN JIMENEZ ([phone])[facility] ([facility])[address] [place] [address] Protein (U) [Mass/Vol] Negative Normal Negative [facility] Comment on above: Performed By: #### L [id number] ####Gambling Broker: JAZLYN JIMENEZ ([phone])[facility])[address] [place] [address] Specific gravity (U) [Rel density] 1.017 Normal 1.005-1.030 [facility] Comment on above: Performed By: #### L [id number] ####Gambling Broker: JAZLYN JIMENEZ ([phone])[facility])[address] [place] [address] UROBILINOGEN (MG/DL) IN URINE Normal Normal Normal (0-1) [facility] Comment on above: Performed By: #### L [id number] ####Gambling Broker: JAZLYN JIMENEZ ([phone])[facility] ([facility])[address] [place] [address] COMPREHENSIVE METABOLIC PANE Yuriy 11-08-2024 Albumin [Mass/Vol] 3.0 g/dL Low 3.5-5.0 [facility] Comment on above: Performed By: #### L AB17, [id number] ####Gambling Broker: JAZLYN JIMENEZ ([phone])[facility])[address] [place] [address] ALP [Catalytic activity/Vol] 84 U/L Normal 40-150 [facility] Comment on above: Performed By: #### L AB17, [id number] ####Gambling Broker: JAZLYN JIMENEZ ([phone])[facility])[address] [place] [address] ALT [Catalytic activity/Vol] 7 U/L Normal <40 [facility] Comment on above: Performed By: #### L AB17, [id number] ####Gambling Broker: JAZLYN JIMENEZ ([phone])[facility])[address] [place] [address] Anion gap [Moles/Vol] 10 mmol/L Normal 3-13 [facility] Comment on above: Performed By: #### L AB17, [id number] ####Gambling Broker: JAZLYN JIMENEZ ([phone])[facility] ([facility])[address] [place] [address] AST [Catalytic activity/Vol] 14 U/L Normal <34 [facility] Comment on above: Performed By: #### L AB17, [id number] ####Gambling Broker: JAZLYN JIMENEZ ([phone])[facility] ([facility])[address] [place] [address] Bilirubin [Mass/Vol] 0.5 mg/dL Normal <1.2 [facility] Comment on above: Performed By: #### L AB17, [id number] ####Gambling Broker: JAZLYN JIMENEZ ([phone])[facility] ([facility])[address] [place] [address] Calcium [Mass/Vol] 13.5 mg/dL High 8.4-10.2 [facility] Comment on above: Performed By: #### L AB17, [id number] ####Gambling Broker: JAZLYN JIMENEZ ([phone])[facility] ([facility])[address] [place] [address] Chloride [Moles/Vol] 103 mmol/L Normal 98-107 [facility] Comment on above: Performed By: #### L AB17, [id number] ####Gambling Broker: JAZLYN JIMENEZ ([phone])[facility] ([facility])[address] [place] [address] [place] CO2 [Moles/Vol] 24 mmol/L Normal 22-29 [facility] Comment on above: Performed By: #### L AB17, [id number] ####Gambling Broker: JAZLYN JIMENEZ ([phone])[facility])[address] [place] [address] Creatinine [Mass/Vol] 1.39 mg/dL High 0.72-1.25 [facility] Comment on above: Performed By: #### L AB17, [id number] ####Gambling Broker: JAZLYN JIMENEZ ([phone])[facility])[address] [place] [address] [place] GLOMERULAR FILTRATION RATE ML/MIN/1.73 SQ M.PREDICTED 61.4 mL/min/1.73m*2 Normal >60.0 [facility] Comment on above: Result Comment: Calc ulation based on the Chronic Kidney Disease Epidemiology Collaboration (CKD-EPI) equation refit without adjustment for race Performed By: #### L 17, [id number] ####Gambling Broker: JAZLYN JIMENEZ ([id number])[facility])[address] [place] [address] [place] Glucose [Mass/Vol] 104 mg/dL High 74-100 [facility] Comment on above: Performed By: #### Kamila RODAS, [id number] ####Gambling Broker: JAZLYN JIMENEZ ([phone])[facility])[address] [place] [address] [place] Potassium [Moles/Vol] 4.2 mmol/L Normal 3.5-5.1 [facility] Comment on above: Result Comment: [facility] potassium values may be up to 0.5 mmol/L lower than serum values. Performed By: #### Kamila BRANHAM17, [id number] ####Gambling Broker: JAZLYN JIMENEZ ([phone])[facility])[address] [place] [address] [place] Protein [Mass/Vol] 7.7 g/dL Normal 6.4-8.3 [facility] Comment on above: Performed By: #### L AB17, [id number] ####Gambling Broker: JAZLYN JIMENEZ ([id number])[facility])[address] [place] [address] [place] Sodium [Moles/Vol] 137 mmol/L Normal 136-145 [facility] Comment on above: Performed By: #### L [id number], [id number] ####Gambling Broker: JAZLYN JIMENEZ ([phone])[facility])[address] [place] [address] [place] Urea nitrogen [Mass/Vol] 21 mg/dL Normal 9-23 [facility] Comment on above: Performed By: #### L [id number], [id number] ####Gambling Broker: JAZLYN JIMENEZ ([phone])[facility] ([facility])[address] [place] [address] CT PELVIS W IV CONTRASTon CT PELVIS W IV CONTRAST Patient Name: KEVAN LA : 1975 [id number] Exam Date/Time: 11/08/2024 16:38 Procedure: CT PELVIS W IV CONTRAST Ordering Provider: KENNEDY MICHAEL Reason For Exam: refractory Hidradenitis suppurative hx to left gluteal, multiple draining abscesses, hypotension EXAMINATION: CT PELVIS W IV CONTRAST CLINICAL HISTORY: refractory Hidradenitis suppurative hx to left gluteal, multiple draining abscesses, hypotension COMPARISON: 09/12/2024 TECHNIQUE: Helical CT of the pelvis with IV contrast. Dose reduction was employed with automated exposure control. FINDINGS: There is a large open wound along the patient's left buttock measuring approximately 5.5 cm in diameter and 3.6 cm in depth. There is also an adjacent large, enhancing soft tissue masslike opacity arising in the inferior aspect of the left gluteal muscles and extending to the skin surface caudal to the open wound. This masslike opacity measures approximately 9.6 x 8.2 x 14.9 cm (previously 6.3 x 7.1 x 10.4 cm). The overlying skin is abnormally thickened with nodular enhancing masses in the skin surface. There is also skin thickening and subcutaneous fat stranding superior to the ulcerative lesion in the left buttock, and comparatively mild skin thickening along the medial aspect of the right buttock. No tracking gas in the soft tissues or discrete drainable fluid collection is identified. There is no site of cortical bone erosion or periostitis to indicate osteomyelitis. The visualized intraperitoneal structures are unremarkable with no acute intraperitoneal abnormalities identified. There are multiple left inguinal and external iliac lymph nodes measuring up to 1.8 cm in short axis. The previously noted right posterior bladder diverticulum now contains a 14 mm stone and there is an adjacent 15 mm high attenuation structure in the right posterior urinary bladder which is more dense than contrast and most likely represents an additional calculus. Other small bladder diverticuli are also noted. IMPRESSION: 1. Large ulcerative wound in the left buttock with an adjacent 14.9 cm enhancing mass involving the left gluteal muscles and overlying subcutaneous tissues. While this could simply relate to the patient's history of hidradenitis suppurvativa, a malignant mass would have the same appearance, and the mass is significantly larger than on the prior CT from August 2024. Biopsy is suggested. 2. No evidence of osteomyelitis. No acute intracranial abnormalities. 3. Left inguinal and external iliac lymphadenopathy. 4. New bladder calculi, the largest 15 mm. Report Dictated on Electronically Signed By: Julio Sears MD Electronically Signed Date/Time: 11/08/2024 5:20 PM EST Best imaging possible due to patient inability to lay on back from abscesses. Pt arrives from [facility] for possible sepsis. Had wound on buttock drained at in Sep. Has not had IV antibiotics at facility. Hx of rare skin condition with frequent abscesses. Aox4. Some N/V. Hypotensive 80-90 systolic. Normal [facility] CT Pelvis W contrast Mp 1. Large ulcerative wound in the left buttock with an adjacent 14.9 cm enhancing mass involving the left gluteal muscles and overlying subcutaneous tissues. While this could simply relate to the patient's history of hidradenitis suppurvativa, a malignant mass would have the same appearance, and the mass is significantly larger than on the prior CT from August 2024. Biopsy is suggested. 2. No evidence of osteomyelitis. No acute intracranial abnormalities. 3. Left inguinal and external iliac lymphadenopathy. 4. New bladder calculi, the largest 15 mm. Report Dictated on Electronically Signed By: Julio Sears MD Electronically Signed Date/Time: 11/08/2024 5:20 PM [facility] [employer] Patient Name: KEVAN LA : 1975 Exam Date/Time: 11/08/2024 16:38 Procedure: CT PELVIS W IV CONTRAST Ordering Provider: KENNEDY MICHAEL Reason For Exam: refractory Hidradenitis suppurative hx to left gluteal, multiple draining abscesses, hypotension EXAMINATION: CT PELVIS W IV CONTRAST CLINICAL HISTORY: refractory Hidradenitis suppurative hx to left gluteal, multiple draining abscesses, hypotension COMPARISON: 09/12/2024 TECHNIQUE: Helical CT of the pelvis with IV contrast. Dose reduction was employed with automated exposure control. FINDINGS: There is a large open wound along the patient's left buttock measuring approximately 5.5 cm in diameter and 3.6 cm in depth. There is also an adjacent large, enhancing soft tissue masslike opacity arising in the inferior aspect of the left gluteal muscles and extending to the skin surface caudal to the open wound. This masslike opacity measures approximately 9.6 x 8.2 x 14.9 cm (previously 6.3 x 7.1 x 10.4 cm). The overlying skin is abnormally thickened with nodular enhancing masses in the skin surface. There is also skin thickening and subcutaneous fat stranding superior to the ulcerative lesion in the left buttock, and comparatively mild skin thickening along the medial aspect of the right buttock. No tracking gas in the soft tissues or discrete drainable fluid collection is identified. There is no site of cortical bone erosion or periostitis to indicate osteomyelitis. The visualized intraperitoneal structures are unremarkable with no acute intraperitoneal abnormalities identified. There are multiple left inguinal and external iliac lymph nodes measuring up to 1.8 cm in short axis. The previously noted right posterior bladder diverticulum now contains a 14 mm stone and there is an adjacent 15 mm high attenuation structure in the right posterior urinary bladder which is more dense than contrast and most likely represents an additional calculus. Other small bladder diverticuli are also noted. [facility] Julio Sears MD - 11/08/2024 Patient Name: KEVAN LA : 1975 Exam Date/Time: 11/08/2024 16:38 Procedure: CT PELVIS W IV CONTRAST Ordering Provider: KENNEDY MICHAEL Reason For Exam: refractory Hidradenitis suppurative hx to left gluteal, multiple draining abscesses, hypotension EXAMINATION: CT PELVIS W IV CONTRAST CLINICAL HISTORY: refractory Hidradenitis suppurative hx to left gluteal, multiple draining abscesses, hypotension COMPARISON: 09/12/2024 TECHNIQUE: Helical CT of the pelvis with IV contrast. Dose reduction was employed with automated exposure control. FINDINGS: There is a large open wound along the patient's left buttock measuring approximately 5.5 cm in diameter and 3.6 cm in depth. There is also an adjacent large, enhancing soft tissue masslike opacity arising in the inferior aspect of the left gluteal muscles and extending to the skin surface caudal to the open wound. This masslike opacity measures approximately 9.6 x 8.2 x 14.9 cm (previously 6.3 x 7.1 x 10.4 cm). The overlying skin is abnormally thickened with nodular enhancing masses in the skin surface. There is also skin thickening and subcutaneous fat stranding superior to the ulcerative lesion in the left buttock, and comparatively mild skin thickening along the medial aspect of the right buttock. No tracking gas in the soft tissues or discrete drainable fluid collection is identified. There is no site of cortical bone erosion or periostitis to indicate osteomyelitis. The visualized intraperitoneal structures are unremarkable with no acute intraperitoneal abnormalities identified. There are multiple left inguinal and external iliac lymph nodes measuring up to 1.8 cm in short axis. The previously noted right posterior bladder diverticulum now contains a 14 mm stone and there is an adjacent 15 mm high attenuation structure in the right posterior urinary bladder which is more dense than contrast and most likely represents an additional calculus. Other small bladder diverticuli are also noted. IMPRESSION: 1. Large ulcerative wound in the left buttock with an adjacent 14.9 cm enhancing mass involving the left gluteal muscles and overlying subcutaneous tissues. While this could simply relate to the patient's history of hidradenitis suppurvativa, a malignant mass would have the same appearance, and the mass is significantly larger than on the prior CT from August 2024. Biopsy is suggested. 2. No evidence of osteomyelitis. No acute intracranial abnormalities. 3. Left inguinal and external iliac lymphadenopathy. 4. New bladder calculi, the largest 15 mm. Report Dictated on Electronically Signed By: Julio Sears MD Electronically Signed Date/Time: 11/08/2024 5:20 PM EST [facility] [email or web address] Radiology Study observation (narrative) [facility] aman CT Pelvis W contrast IVOrder ed By: Julio Sears on 11-08-2024 [facility] [email or web address] Work Phone: Comprehensive metabolic 1998 panelon 11-08-2024 Albumin [Mass/Vol] 3 g/dL Low 3.5 - 5.0 g/dL [facility] ALP [Catalytic activity/Vol] 84 U/L 40 - 150 U/L [facility] ALT [Catalytic activity/Vol] 7 U/L NINF - 40 U/L [facility] Anion gap [Moles/Vol] 10 mmol/L 3 - 13 mmol/L [facility] AST [Catalytic activity/Vol] 14 U/L NINF - 34 U/L [facility] Bilirubin [Mass/Vol] 0.5 mg/dL NINF - 1.2 mg/dL [facility] Calcium [Mass/Vol] 13.5 mg/dL High 8.4 - 10. 2 mg/dL [facility] Chloride [Moles/Vol] 103 mmol/L 98 - 10 7 mmol/L [facility] CO2 [Moles/Vol] 24 mmol/L 22 - 29 mmol/L [facility] Creatinine [Mass/Vol] 1.39 mg/dL High 0.72 - 1.25 mg/dL [facility] GFR/1.73 sq M.predicted (S/P/Bld) [Vol rate/Area] 61.4 mL/min - PINF [facility] Comment on above: Calculation based on the Chronic Kidney Disease Epidemiology Collaboration (CKD-EPI) equation refit without adjustment for race Glucose [Mass/Vol] 104 mg/dL High 74 - 100 mg/dL [facility] Interpretation and review of laboratory results Abnormal [facility] Potassium [Moles/Vol] 4.2 mmol/L 3.5 - 5.1 mmol/L [facility] Comment on above: Plasma potassium jeri ues may be up to 0.5 mmol/L lower than serum values. Protein [Mass/Vol] 7.7 g/dL 6.4 - 8.3 g/dL [facility] Sodium [Moles/Vol] 137 mmol/L 136 - 145 mmol/L [facility] Urea nitrogen [Mass/Vol] 21 mg/dL 9 - 23 mg/d L [facility] Consulton 11-08-2024 Consult Pharmacy Managed Vancomycin Dosing Service Consult Note Consult Date: 11/08/24 Patient Name: Kevan La Allergies: Patient has no known allergies. Age: 49 y.o. Sex: male Estimated body mass index is 25.91 kg/m? as calculated from the following: Height as of 09/13/24: 2.007 m (6' 7"). Weight as of this encounter: 104 kg (230 lb). DW: 104 kg Lab Results Component Value Date CREATININE 1.39 (H) 11/08/2024 CREATININE 1.48 (H) 09/12/2024 BUN 21 11/08/2024 BUN 18 09/12/2024 WBC 13.9 (H) 11/08/2024 WBC 17.8 (H) 09/12/2024 Calculated CrCl: 92 mL/min (Cockcroft-Gault) Consulted By: Kaushik Cervantes Infectious Diagnosis: SSTI (AUC Goal 400-600 mg/L*hr) Random Vancomycin Level Due: 11/10 Antimicrobials: Patient recently received an antibiotic (last 12 hours) Date/Time Action Medication Dose Rate 11/08/24 2105 New Bag piperacillin-tazobac daley (Zosyn) IVPB 3,375 mg 3,375 mg 12.5 mL/hr 11/08/24 1701 New Bag vancomycin in NS (Vancocin) IVPB 2,000 mg 2,000 mg 250 mL/hr 11/08/24 1615 New Bag piperacillin-tazobac daley (Zosyn) IVPB 4,500 mg 4,500 mg 200 mL/hr Assessment/Plan: Doses, serum creatinine, and vancomycin levels interfaced automatically to [employer] I/O and data has been analyzed and interpreted. Start Vancomycin 1000 mg every 12 hours based on patient age, weight, renal function, and infectious diagnosis (9.6 mg/kg). Predicted AUC = 476 mg/L*hr (goal 400-600 mg/L*hr) PAUC = 71% (probability that AUC is >400 mg/L*hr) Pconc = 16% (probability that Ctrough is above 20 mcg/mL (toxicity)) Will assess random level on 11/10/24 and adjust as appropriate. Trend serum creatinine. Orders placed. Thank you for this consult. Please secure text or call with questions. DATE: 11/08/24 TIME: 11:24 PM Sara Ziegler PharmD Clinical Pharmacist Available via Secure Chat [facility] ED Nursing Noteon 11-08-2024 ED Nursing Note Provider messaged about BP and MAP Normal [facility] ED Nursing Note Provider messaged about orders Normal [facility] ED Nursing Note Patient requested pain medication and dinner. This nurse messaged provider [facility] ED Nursing Note Patient is aware of patients BP and MAP. Normal [facility] ED Nursing Note Liter of NS hung for systolic of 88. IV obtained with blood work and first set of cultures. Will notify doctor of BP. Normal [facility] ED Provider Noteon ED Provider Note Emergency Department Encounter Location: [facility] MSU H5 Patient: Kevan La : 1975 Date of evaluation: 11/08/2024 ED Provider: Sangeetha Ruiz MD Kevan La was checked out to me by Dr. Meza. Please see his/her initial documentation for details of the patient's initial ED presentation, physical exam and completed studies. I did perform a substantive portion of the visit including all aspects of the Medical Decision Making. In brief, Kevan La is a 49 y.o. male that presented to the emergency department for buttock pain and purulent drainage. I have reviewed and interpreted all of the currently available lab results and diagnostics from this visit: Results for orders placed or performed during the hospital encounter of 11/08/24 Blood culture Site #1 - Suspected Infection Collection Time: 11/08/24 3:31 PM Specimen: Blood, Venous Result Value Ref Range Blood Culture No growth at 4 days Blood culture Site #2 - Suspected Infection Collection Time: 11/08/24 3:31 PM Specimen: Blood, Venous Result Value Ref Range Blood Culture No growth at 4 days CBC auto differential Collection Time: 11/08/24 3:31 PM Result Value Ref Range Auto WBC 13.9 (H) 3.6 - 10.7 10*3/uL RBC 3.68 (L) 4.40 - 5.90 10*6/uL Hemoglobin 10.4 (L) 13.0 - 18.0 g/dL Hematocrit 31.1 (L) 40.0 - 52.0 % MCV 84.5 77.0 - 99.0 fL MCH 28.3 26.0 - 34.0 pg MCHC 33.4 30.5 - 36.0 % RDW 16.5 (H) 11.5 - 15.0 % Platelets 634 (H) 140 - 440 10*3/uL MPV 9.5 9.0 - 12.7 fL nRBC 0.0 0.0 - 2.0 /100 WBCs Neutrophils Relative 75.0 38.0 - 82.0 % Lymphocytes Relative 11.7 (L) 15.0 - 45.0 % Monocytes Relative 10.9 5.0 - 13.0 % Eosinophils Relative 1.4 0.0 - 6.0 % Basophils Relative 0.5 0.0 - 2.0 % Immature Grans % 0.5 0.0 - 2.0 % Neutrophils Absolute 10.4 (H) 1.8 - 7.5 10*3/uL Lymphocytes Absolute 1.6 1.0 - 4.3 10*3/uL Monocytes Absolute 1.5 (H) 0.0 - 0.9 10*3/uL Eosinophils Absolute 0.2 0.0 - 0.5 10*3/uL Basophils Absolute 0.1 0.0 - 0.2 10*3/uL Immature Grans Absolute 0.1 (H) <0.1 10*3/uL Comprehensive metabolic panel Collection Time: 11/08/24 3:31 PM Result Value Ref Range SODIUM 137 136 - 145 mmol/L POTASSIUM 4.2 3.5 - 5.1 mmol/L CHLORIDE 103 98 - 107 mmol/L CARBON DIOXIDE 24 22 - 29 mmol/L ANION GAP 10 3 - 13 mmol/L UREA NITROGEN 21 9 - 23 mg/dL CREATININE 1.39 (H) 0.72 - 1.25 mg/dL GLUCOSE 104 (H) 74 - 100 mg/dL CALCIUM 13.5 (H) 8.4 - 10.2 mg/dL AST (SGOT) 14 <34 U/L ALT 7 <40 U/L ALKALINE PHOSPHATASE 84 40 - 150 U/L ALBUMIN 3.0 (L) 3.5 - 5.0 g/dL BILIRUBIN, TOTAL 0.5 <1.2 mg/dL TOTAL PROTEIN 7.7 6.4 - 8.3 g/dL eGFR 61.4 >60.0 mL/min/1.73m*2 Lactic acid with reflex Collection Time: 11/08/24 3:31 PM Result Value Ref Range LACTIC ACID 1.2 0.5 - 2.2 mmol/L TSH Collection Time: 11/08/24 3:31 PM Result Value Ref Range THYROID STIMULATING HORMONE 0.84 0.35 - 4.94 uIU/mL Complete Urinalysis Collection Time: 11/08/24 3:41 PM Result Value Ref Range Color, Urine Light Yellow Lt. Yellow Clarity, Urine Clear Clear pH, Urine 5.5 5.0 - 8.0 pH Leukocytes, Urine Negative Negative Gabe/uL Nitrite, Urine Negative Negative Protein, Urine Negative Negative mg/dL Glucose, Urine Normal Normal (<70) mg/dL Bilirubin, Urine Negative Negative mg/dL Ketones, Urine Negative Negative mg/dL Urobilinogen, Urine Normal Normal (0-1) mg/dL Blood, Urine Negative Negative mg/dL SPECIFIC GRAVITY OF URINE (NUMERIC) 1.017 1.005 - 1.030 Hemoglobin A1c Collection Time: 11/08/24 10:12 PM Result Value Ref Range HEMOGLOBIN A1C 5.2 <5.7 %HbA1C ESTIMATED AVERAGE GLUCOSE 103 mg/dL CBC auto differential Collection Time: 11/09/24 6:07 AM Result Value Ref Range Auto WBC 13.0 (H) 3.6 - 10.7 10*3/uL RBC 3.18 (L) 4.40 - 5.90 10*6/uL Hemoglobin 8.8 (L) 13.0 - 18.0 g/dL Hematocrit 27.7 (L) 40.0 - 52.0 % MCV 87.1 77.0 - 99.0 fL MCH 27.7 26.0 - 34.0 pg MCHC 31.8 30.5 - 36.0 % RDW 16.4 (H) 11.5 - 15.0 % Platelets 524 (H) 140 - 440 10*3/uL MPV 8.8 (L) 9.0 - 12.7 fL Comprehensive metabolic panel Collection Time: 11/09/24 6:07 AM Result Value Ref Range SODIUM 137 136 - 145 mmol/L POTASSIUM 3.7 3.5 - 5.1 mmol/L CHLORIDE 107 98 - 107 mmol/L CARBON DIOXIDE 24 22 - 29 mmol/L ANION GAP 6 3 - 13 mmol/L UREA NITROGEN 19 9 - 23 mg/dL CREATININE 1.42 (H) 0.72 - 1.25 mg/dL GLUCOSE 101 (H) 74 - 100 mg/dL CALCIUM 12.1 (H) 8.4 - 10.2 mg/dL AST (SGOT) 11 <34 U/L ALT <6 <40 U/L ALKALINE PHOSPHATASE 70 40 - 150 U/L ALBUMIN 2.5 (L) 3.5 - 5.0 g/dL BILIRUBIN, TOTAL 0.4 <1.2 mg/dL TOTAL PROTEIN 6.3 (L) 6.4 - 8.3 g/dL eGFR 59.8 (L) >60.0 mL/min/1.73m*2 Man Differential Collection Time: 11/09/24 6:07 AM Result Value Ref Range Adjusted WBC 13.0 (H) 3.6 - 10.7 10*3/uL Neutrophils % 68 38 - 82 % Bands % 5 (H) <=0 % Lymphocytes % 11 (L) 15 - 45 % Monocytes % 8 5 - 13 % Eosinophils % 8 (H) 0 - 6 % Absolute Neutrophil Count 9.5 (H) 1.8 - (more content not included)... Normal [facility] ED Provider Note EMERGENCY DEPARTMENT ENCOUNTER Pt Name: Kevan La Birthdate 1975 Date of evaluation: 11/08/2024 ED Provider: Juvenal Fierro MD CHIEF COMPLAINT Chief Complaint Patient presents with Wound Check Pt arrives from [facility] for possible sepsis. Had wound on buttock drained at in Sep. Has not had IV antibiotics at facility. Hx of rare skin condition with frequent abscesses. Aox4. Some N/V. Hypotensive 80-90 systolic. HISTORY OF PRESENT ILLNESS (Location/Symptom, Timing/Onset, Context/Setting, Quality, Duration, Modifying Factors, Severity) Note limiting factors. I wore appropriate PPE for the entirety of this encounter. HPI Kevan La is a 49 y.o. adult who presents to the emergency department with chief complaint of possible sepsis. Patient has chronic hidradenitis affecting mostly his left hip and going down into his left thigh as well. Patient has routine flareups requiring antibiotics, and he had an incision and drainage done in September at . Patient is currently at a SNF, and he did not receive any IV antibiotics while he was there. Today nurses at the SNF noticed that his wounds were draining more than usual and are more erythematous than usual, and that his blood pressure was a little softer than usual. This constellation of symptoms breathing concern for sepsis with a symptom here to the ED. On presentation to the ED patient is hypotensive to the 90/60, says his blood pressure is usually well over 100 systolic. Hidradenitis sites are draining with dressing on them, dressing is clean for the most part with some drainage patient says it was replaced this morning. Patient feels all right aside from a moderate amount of pain from his hidradenitis which she says is more or less his baseline. Nursing Notes were reviewed. Limitations to history: None Outside historians: None REVIEW OF SYSTEMS Review of Systems Pertinent positives and negatives as per HPI. PAST MEDICAL HISTORY No past medical history on file. SURGICAL HISTORY No past surgical history on file. CURRENT MEDICATIONS Previous Medications No medications on file ALLERGIES Patient has no known allergies. FAMILY HISTORY No family history on file. SOCIAL HISTORY Social History Socioeconomic History Marital status: Single Social Drivers of Health Financial Resource Strain: Medium Risk (10/12/2024) Received from [facility] Overall Financial Resource Strain (CARDIA) Difficulty of Paying Living Expenses: Somewhat hard Food Insecurity: Food Insecurity Present (10/11/2024) Received from [facility] Hunger Vital Sign Worried About Running Out of Food in the Last Year: Sometimes true Ran Out of Food in the Last Year: Sometimes true Transportation Needs: No Transportation Needs (10/12/2024) Received from [facility] PRAPARE - Transportation Lack of Transportation (Medical): No Lack of Transportation (Non-Medical): No Intimate Partner Violence: Not At Risk (10/11/2024) Received from [facility] Humiliation, Afraid, Rape, and Kick questionnaire Fear of Current or Ex-Partner: No Emotionally Abused: No Physically Abused: No Sexually Abused: No Housing Stability: Low Risk (10/12/2024) Received from [facility] Housing Stability Vital Sign Unable to Pay for Housing in the Last Year: No Number of Times Moved in the Last Year: 1 Homeless in the Last Year: No Recent Concern: Housing Stability - High Risk (09/17/2024) Received from [facility] Housing Stability Vital Sign Unable to Pay for Housing in the Last Year: Yes Number of Times Moved in the Last Year: 0 Homeless in the Last Year: No SCREENINGS PHYSICAL EXAM ED Triage Vitals [11/08/24 1508] Temp Heart Rate Resp BP 37.1 ?C (98.8 ?F) 82 15 94/61 SpO2 Temp Source Heart Rate Source Patient Position 96 % Oral Monitor -- BP Location FiO2 (%) -- -- Physical Exam Vitals reviewed. Constitutional: General: He is not in acute distress. Appearance: Normal appearance. He is not ill-appearing, toxic-appearing or diaphoretic. HENT: Head: Normocephalic and atraumatic. Eyes: General: No scleral icterus. Right eye: No discharge. Left eye: No discharge. Cardiovascular: Rate and Rhythm: Normal rate and regular rhythm. Pulmonary: Effort: Pulmonary effort is normal. Breath sounds: Normal breath sounds. Skin: General: Skin is warm and dry. Findings: Lesion present. Comments: Diffuse hidradenitis on left glute and left thigh. Dressing has some purulent drainage on it, but is for the most part clean and dry. Neurological: Mental Status: He is alert and oriented to person, place, and time. Psychiatric: Mood and Affect: Mood normal. Behavior: Behavior normal. Thought Content: Thought content normal. DIAGNOSTIC RESULTS RADIOLOGY (Per Emergency Physic (more content not included)... Normal [facility] ED Provider Note Emergency Department Encounter [facility] EMERGENCY DEPT Patient: Kevan La : 1975 Date of Evaluation: 11/08/2024 ED Supervising Physician: Fer Kennedy MD I personally evaluated Kevan La and made/approved the management plan and take responsibility for the patient management. This will serve as my Supervisory note and shared attestation. I did perform a substantive portion of the visit including all aspects of the Medical Decision Making. I wore appropriate PPE for the entirety of this encounter. In brief, Kevan La is a 49 y.o. that presents to the emergency department for low blood pressure and wound check. Patient coming from [facility] for possible sepsis. Patient has chronic refractory hidradenitis suppurativa requiring multiple admissions most recently at with IV antibiotics. Currently on doxycycline. Had some nausea reported vomiting denies fevers chills. Focused exam: Vitals blood pressure now improved he is afebrile nontoxic no distress Left gluteal area with multiple chronic appearing wounds healing nonhealing and there is purulence coming from a masslike area, there is mild cellulitis of this area, there is a chronic nonhealing wound that is packed, no crepitus, there is tenderness, no streaking Brief ED course/MDM: 49-year-old male presents for worsening hidradenitis and low blood pressure. Differential abscess, cellulitis, necrotizing fasciitis. Plan is for labs, cultures, CT, IV fluids and antibiotics, surgery consult. Anticipate transfer to as he apparently is on a clinical trial there and was transferred there last time. Does not meet SIRS criteria. Diagnostics interpreted by me: CT scan(s) CT pelvis shows what appears to be a fluid collection in the left gluteal area I personally discussed the patient's management with other clinicians: none All diagnostic, treatment, and disposition decisions were made by myself in conjunction with the Resident. I also supervised gomez portions of any procedures performed by the Resident. For all further details of the patient's emergency department visit, please see their documentation. (Comment: Please note this report has been produced using speech recognition software and may contain errors related to that system including errors in grammar, punctuation, and spelling, as well as words and phrases that may be inappropriate. If there are any questions or concerns please feel free to contact the dictating provider for clarification.) Fer Kennedy MD Acute Care [facility] Fer Kennedy MD 11/08/24 1651 Normal [facility] HEMOGLOBIN A1Con 11-08-2024 Glucose [Mass/Vol] 103 mg/dL Normal [facility] Comment on above: Result Comment: MAYRA Dhillon COMMENTS: HbA1c values of 5.7-6.4 percent indicate an increased risk for developing diabetes mellitus. HbA1c values greater than or equal to 6.5 percent are diagnostic of diabetes mellitus. For diagnosis of diabetes in individuals without unequivocal hyperglycemia, results should be confirmed by repeat testing. Performed By: #### L [id number] ####Gambling Broker: JAZLYN JIMENEZ ([phone])[facility] ([facility])[address] [place] [address] HEMOGLOBIN A1C 5.2 %HbA1C Normal <5.7 [facility] Comment on above: Result Comment: Norm al less than 5.7% Prediabetes 5.7% to 6.4% Diabetes 6.5% or higher --HgbA1C levels may not be accurate in patients who have renal disease, received recent blood transfusions, are anemic, or who have dyshemoglobinemia. Performed By: #### L [id number] ####Gambling Broker: JAZLYN JIMENEZ ([phone])[facility] ([facility])[address] [place] [address] LACTIC ACID WITH REFLEXon Lactate [Moles/Vol] 1.2 mmol/L Normal 0.5-2.2 [facility] Comment on above: Performed By: #### L [id number] ####Gambling Broker: JAZLYN JIMENEZ ([phone])[facility] ([facility])[address] [place] [address] Laboratory - Chemistry and C hemistry - challengeon 11-08-2024 Average glucose Estimated from glycated hemoglobin (Bld) [Mass/Vol] 103 mg/dL [facility] TSH Qn 0.84 m[IU]/L [facility] Lactate [Moles/Vol] 1.2 mmol/L 0.5 - 2. 2 mmol/L [facility] Laboratory - Hematology and Cell countson 11-08-2024 HbA1c (Bld) [Mass fraction] 5.2 % [facility] Comment on above: Normal less than 5.7 % Prediabetes 5.7% to 6.4% Diabetes 6.5% or higher --HgbA1C levels may not be accurate in patients who have renal disease, received recent blood transfusions, are anemic, or who have dyshemoglobinemia. No Panel Informationon 11-08 HbA1c values of 5.7-6.4 percent indicate an increased risk for developing diabetes mellitus. HbA1c values greater than or equal to 6.5 percent are diagnostic of diabetes mellitus. For diagnosis of diabetes in individuals without unequivocal hyperglycemia, results should be confirmed by repeat testing. [facility] Interpretation and review of laboratory results Normal [facility] THYROID STIMULATING HORMONEo n 11-08-2024 THYROID STIMULATING HORMONE 0.84 uIU/mL Normal 0.35-4.94 [facility] Comment on above: Performed By: #### L [id number], [id number] ####Gambling Broker: JAZLYN JIMENEZ ([phone])[address] TSH Qnon 11-08-2024 Interpretation and review of laboratory results Normal [facility] Urinalysis complete panel (U )on 11-08-2024 Bilirubin Ql (U) Negative Negative mg/dL [facility] Clarity (U) Clear Clear [facility] Color (U) Light Yellow Lt. Yellow [facility] Glucose Ql (U) Normal Normal (<70) mg/dL [facility] Hemoglobin Ql (U) Negative Negative mg/dL [facility] Interpretation and review of laboratory results Normal [facility] Ketones (U) [Mass/Vol] Negative Negat sulema mg/dL [facility] Leukocyte esterase Test strip Ql (U) Negative Negative Gabe/uL [facility] Nitrite Ql (U) Negative Negative [facility] th pH (U) 5.5 [pH] 5.0 - 8.0 pH [facility] Protein (U) [Mass/Vol] Negative Negat sulema mg/dL [facility] Specific gravity (U) [Rel density] 1.017 1.005 - 1.030 [facility] Urobilinogen (U) [Mass/Vol] Normal Normal (0-1) mg/dL [facility] [id number] DOrdered By: Vanda Nolasco on 10-24-2024 Vitamin D 25-Hydroxy 63.4 ng/mL [facility] Comment on above: Vitamin D 25(OH) Sta tus Range Deficiency <20 ng/mL (50nmol/L) Insufficiency 20 - 30 ng/mL (50 - 75 nmol/L) Sufficiency 30 - 100 ng/mL (75 - 250 nmol/L) Toxicity >100 ng/mL (>250 nmol/L) Blood urea nitrogen (BUN)/cr eatinine ratioOrdered By: Julio Nolasco on 10-24-2024 Urea nitrogen/Creatinine [Mass ratio] 14.0 mg/mg 10-20 [facility] Carbon dioxide measurementOr dered By: Julio Nolasco on 10-24-2024 CO2 [Moles/Vol] 26.0 mmol/L 21.0-32.0 [facility] Chloride measurementOrdered By: Julio Nolasco on 10-24-2024 Chloride [Moles/Vol] 104 mmol/L 98-107 [facility] Erythrocyte distribution wid th (RBC) [Ratio]Ordered By: Julio Nolasco on 10-24-2024 Erythrocyte distribution width (RBC) [Entitic vol] 60.6 fL High 35.1-43.9 [facility] Erythrocyte distribution wid th ratioOrdered By: Julio Nolasco on 10-24-2024 Erythrocyte distribution width (RBC) [Ratio] 18.5 % High 11.6-14.6 [facility] Estimated glomerular filtrat ion rate (GFR) AmericanOrdered By: Julio Nolasco on 10-24-2024 Estimated GFR (MDRD) Amer 75 mL/min >60 [facility] Comment on above: GFR Calc Glomerular filtration rate ( GFR) estimationOrdered By: Julio Nolasco on 10-24-2024 Estimated GFR (MDRD) Non-Af Amer 62 mL/min >60 [facility] Comment on above: Non- GFR Calc Glucose measurementOrdered B y: Julio Nolasco on 10-24-2024 Glucose [Mass/Vol] 95 mg/dL 74-106 [facility] Hematocrit Auto (Bld) [Volum e fraction]Ordered By: Julio Nolasco on 10-24-2024 Hematocrit (Bld) [Volume fraction] 26.4 % Low 40-54 [facility] Hemoglobin A1c percentageOrd ered By: Julio Nolasco on 10-24-2024 HbA1c (Bld) [Mass fraction] 5.2 % 3.8-5.6 [facility] Comment on above: Normal < 5.7 % Predi abetic 5.7 - 6.4 % Diabetic >or= 6.5 % Please note range changes. Hemoglobin measurementOrdere d By: Julio Nolasco on 10-24-2024 Hemoglobin (Bld) [Mass/Vol] 8.4 g/dL Low 13.0-16.5 [facility] High density lipoprotein (HD L) measurementOrdered By: Julio Nolasco on 10-24-2024 Cholesterol in HDL [Mass/Vol] 38 mg/dL Low >40 [facility] Comment on above: The drugs N-Acetylcy steine and Metamizole may falsely depress this assay. Reference Range HDL <40 mg/dL Low HDL Cholesterol HDL >or= 60 mg/dL High HDL Cholesterol Low density lipoprotein (LDL ) cholesterol measurementOrdered By: Julio Nolasco on 10-24-2024 Cholesterol in LDL [Mass/Vol] 96 mg/dL 0-130 [facility] MCV (mean corpuscular volume ) determinationOrdered By: Julio Nolasco on 10-24-2024 MCV (RBC) [Entitic vol] 89.5 fL 80-94 [facility] Mean corpuscular hemoglobin (MCH) determinationOrdered By: Julio Nolasco on 10-24-2024 MCH (RBC) [Entitic mass] 28.5 pg 27.0-32.0 [facility] Mean corpuscular hemoglobin concentration (MCHC) determinationOrdered By: Julio Nolasco on 10-24-2024 MCHC (RBC) [Mass/Vol] 31.8 g/dL Low 32-[address] [facility] Mean platelet volume determi nationOrdered By: Julio Nolasco on 10-24-2024 Platelet mean volume (Bld) [Entitic vol] 8.7 fL 6.2-12.0 [facility] Platelet countOrdered By: Antwon Nolasco on 10-24-2024 Platelets (Bld) [#/Vol] 536 10*3/uL High 150-450 [facility] Potassium measurementOrdered By: Julio Nolasco on 10-24-2024 Potassium [Moles/Vol] 4.0 mmol/L 3.5-5.[address] [facility] RBC Auto (Bld) [#/Vol]Ordere d By: Julio Nolasco on 10-24-2024 RBC (Bld) [#/Vol] 2.95 10*6/uL Low 4.6-6.2 [facility] Serum anion gap measurementO rdered By: Julio Nolasco on 10-24-2024 Anion gap [Moles/Vol] 7 mmol/L 5-[address] [facility] Serum or plasma calcium mervat urement (mass/volume)Ordered By: Julio Nolasco on 10-24-2024 Calcium [Mass/Vol] 10.3 mg/dL High 8.5-10.1 [facility] Serum or plasma cholesterol measurement (mass/volume)Ordered By: Julio Nolasco on 10-24-2024 Cholesterol [Mass/Vol] 164 mg/dL <200 [facility] Comment on above: <200 mg/dL Desirable 200-240 mg/dL Borderline >240 mg/dL High Risk Serum or plasma creatinine m easurement (mass/volume)Ordered By: Julio Nolasco on 10-24-2024 Creatinine [Mass/Vol] 1.29 mg/dL 0.70-1.[address] [facility] Comment on above: The validity of the calculated GFR & GFRAA in patients over 70 years has not been determined. Clinical correlation is essential. Serum or plasma urea nitroge n measurement (mass/volume)Ordered By: Julio Nolasco on 10-24-2024 Urea nitrogen [Mass/Vol] 18 mg/dL 7-18 [facility] Sodium levelOrdered By: William Nolasco on 10-24-2024 Sodium [Moles/Vol] 137 mmol/L 136-145 [facility] TSH QnOrdered By: Julio johnson on 10-24-2024 Thyroid Stimulating Hormone (TSH) 5.030 uIU/mL High 0.358-3.740 [facility] Triglycerides measurementOrd ered By: Julio Nolasco on 10-24-2024 Triglyceride [Mass/Vol] 150 mg/dL <199 [facility] Comment on above: The drugs N-Acetylcy steine and Metamizole may falsely depress this assay.Serum Triglycerides Reference Interval Normal <150 mg/dL Borderline high 150 - 199 mg/dL High 200 - 499 mg/dL Very High > or = 500 mg/dL Very low density lipoprotein (VLDL) cholesterol measurementOrdered By: Julio Nolasco on 10-24-2024 VLDL Cholesterol 30 mg/dL 5-40 [facility] White blood cell (WBC) count Ordered By: Julio Nolasco on 10-24-2024 WBC (Bld) [#/Vol] 12.2 10*3/uL High 4.4-11.0 [facility] Basic metabolic 2000 panelon 10-23-2024 Anion gap [Moles/Vol] 13 mmol/L 10 - 2 0 mmol/L [facility] Calcium [Mass/Vol] 10.2 mg/dL 8.6 - 10. 6 mg/dL [facility] Chloride [Moles/Vol] 101 mmol/L 98 - 10 7 mmol/L [facility] CO2 [Moles/Vol] 27 mmol/L 21 - 32 mmol/L [facility] Creatinine [Mass/Vol] 1.37 mg/dL High 0.50 - 1.30 mg/dL [facility] GFR/1.73 sq M.predicted among non-blacks MDRD (S/P/Bld) [Vol rate/Area] 62 mL/min/{1.73_m2} - PINF [facility] Glucose [Mass/Vol] 98 mg/dL 74 - 99 mg/dL [facility] Interpretation and review of laboratory results Abnormal [facility] Potassium [Moles/Vol] 4.3 mmol/L 3.5 - 5.3 mmol/L [facility] Sodium [Moles/Vol] 137 mmol/L 136 - 145 mmol/L [facility] Urea nitrogen [Mass/Vol] 20 mg/dL 6 - 23 mg/d L [facility] CBC W Auto Differential pane l (Bld)on 10-23-2024 Basophils (Bld) [#/Vol] 0.08 10*3/uL [facility] Basophils/100 WBC (Bld) 0.6 % 0.0 - 2.0 % [facility] Eosinophils (Bld) [#/Vol] 0.23 10*3/uL [facility] Eosinophils/100 WBC (Bld) 1.7 % 0.0 - 6.0 % [facility] Erythrocyte distribution width (RBC) [Ratio] 18.6 % High 11.5 - 14.5 % [facility] Hematocrit (Bld) [Volume fraction] 26.4 % Low 41.0 - 52.0 % [facility] Hemoglobin (Bld) [Mass/Vol] 8.3 g/dL Low 13.5 - 17.5 g/dL [facility] Immature granulocytes (Bld) [#/Vol] 0.06 10*3/uL [facility] Immature granulocytes/100 WBC (Bld) 0.5 % 0.0 - 0.9 % [facility] Interpretation and review of laboratory results Abnormal [facility] Lymphocytes (Bld) [#/Vol] 1.57 10*3/uL [facility] Lymphocytes/100 WBC (Bld) 11.8 % 13.0 - 44.0 % [facility] MCH (RBC) [Entitic mass] 27.9 pg 26. 0 - 34.[address] [facility] MCHC (RBC) [Mass/Vol] 31.4 g/dL Low 32.0 - 36.0 g/dL [facility] MCV (RBC) [Entitic vol] 89 fL 80 - [address] [facility] Monocytes (Bld) [#/Vol] 1.38 10*3/uL High [facility] Monocytes/100 WBC (Bld) 10.4 % 2.0 - 10.0 % [facility] Neutrophils (Bld) [#/Vol] 9.93 10*3/uL High [facility] Neutrophils/100 WBC (Bld) 75 % 40.0 - 80.0 % [facility] Nucleated RBC/100 WBC (Bld) [Ratio] 0 % [facility] Platelets (Bld) [#/Vol] 525 10*3/uL High [facility] RBC (Bld) [#/Vol] 2.98 10*6/uL Low [facility] WBC (Bld) [#/Vol] 13.3 10*3/uL High [facility] Magnesiumon 10-23-2024 Magnesium [Mass/Vol] 2 mg/dL 1.60 - 2.40 mg/dL [facility] No Panel Informationon 10-23 Interpretation and review of laboratory results Normal [facility] Phosphoruson 10-23-2024 Phosphate [Mass/Vol] 3.7 mg/dL 2.5 - 4 .9 mg/dL [facility] Basic metabolic 2000 panelon 10-22-2024 Anion gap [Moles/Vol] 14 mmol/L 10 - 2 0 mmol/L [facility] Calcium [Mass/Vol] 10.3 mg/dL 8.6 - 10. 6 mg/dL [facility] Chloride [Moles/Vol] 100 mmol/L 98 - 10 7 mmol/L [facility] CO2 [Moles/Vol] 26 mmol/L 21 - 32 mmol/L [facility] Creatinine [Mass/Vol] 1.43 mg/dL High 0.50 - 1.30 mg/dL [facility] GFR/1.73 sq M.predicted among non-blacks MDRD (S/P/Bld) [Vol rate/Area] 59 mL/min/{1.73_m2} Low - PINF [facility] Glucose [Mass/Vol] 111 mg/dL High 74 - 99 mg/dL Uni [facility] Interpretation and review of laboratory results Abnormal [facility] Potassium [Moles/Vol] 4.2 mmol/L 3.5 - 5.3 mmol/L [facility] Sodium [Moles/Vol] 136 mmol/L 136 - 145 mmol/L [facility] Urea nitrogen [Mass/Vol] 18 mg/dL 6 - 23 mg/d L [facility] CBC W Auto Differential pane l (Bld)on 10-22-2024 Basophils (Bld) [#/Vol] 0.06 10*3/uL [facility] Basophils/100 WBC (Bld) 0.4 % 0.0 - 2.0 % [facility] Eosinophils (Bld) [#/Vol] 0.33 10*3/uL [facility] Eosinophils/100 WBC (Bld) 2.4 % 0.0 - 6.0 % [facility] Erythrocyte distribution width (RBC) [Ratio] 18.5 % High 11.5 - 14.5 % [facility] Hematocrit (Bld) [Volume fraction] 26.8 % Low 41.0 - 52.0 % [facility] Hemoglobin (Bld) [Mass/Vol] 8.3 g/dL Low 13.5 - 17.5 g/dL [facility] Immature granulocytes (Bld) [#/Vol] 0.07 10*3/uL [facility] Immature granulocytes/100 WBC (Bld) 0.5 % 0.0 - 0.9 % [facility] Interpretation and review of laboratory results Abnormal [facility] Lymphocytes (Bld) [#/Vol] 1.75 10*3/uL [facility] Lymphocytes/100 WBC (Bld) 12.5 % 13.0 - 44.0 % [facility] MCH (RBC) [Entitic mass] 27.7 pg 26. 0 - 34.[address] [facility] MCHC (RBC) [Mass/Vol] 31 g/dL Low 32.0 - 36.0 g/dL [facility] MCV (RBC) [Entitic vol] 89 fL 80 - [address] [facility] Monocytes (Bld) [#/Vol] 1.29 10*3/uL High [facility] Monocytes/100 WBC (Bld) 9.2 % 2.0 - 10.0 % [facility] Neutrophils (Bld) [#/Vol] 10.52 10*3/uL High [facility] Neutrophils/100 WBC (Bld) 75 % 40.0 - 80.0 % [facility] Nucleated RBC/100 WBC (Bld) [Ratio] 0 % [facility] Platelets (Bld) [#/Vol] 556 10*3/uL High [facility] RBC (Bld) [#/Vol] 3 10*6/uL Low [facility] WBC (Bld) [#/Vol] 14 10*3/uL High [facility] Magnesiumon 10-22-2024 Magnesium [Mass/Vol] 1.94 mg/dL 1.60 - 2.40 mg/dL [facility] No Panel Informationon 10-22 Interpretation and review of laboratory results Normal [facility] Phosphoruson 10-22-2024 Phosphate [Mass/Vol] 3.1 mg/dL 2.5 - 4 .9 mg/dL [facility] Basic metabolic 2000 panelon 10-21-2024 Anion gap [Moles/Vol] 14 mmol/L 10 - 2 0 mmol/L [facility] Calcium [Mass/Vol] 10 mg/dL 8.6 - 10. 6 mg/dL [facility] Chloride [Moles/Vol] 103 mmol/L 98 - 10 7 mmol/L [facility] CO2 [Moles/Vol] 26 mmol/L 21 - 32 mmol/L [facility] Creatinine [Mass/Vol] 1.55 mg/dL High 0.50 - 1.30 mg/dL [facility] GFR/1.73 sq M.predicted among non-blacks MDRD (S/P/Bld) [Vol rate/Area] 54 mL/min/{1.73_m2} Low - PINF [facility] Glucose [Mass/Vol] 98 mg/dL 74 - 99 mg/dL [facility] Interpretation and review of laboratory results Abnormal [facility] Potassium [Moles/Vol] 4.4 mmol/L 3.5 - 5.3 mmol/L [facility] Sodium [Moles/Vol] 139 mmol/L 136 - 145 mmol/L [facility] Urea nitrogen [Mass/Vol] 20 mg/dL 6 - 23 mg/d L [facility] CBC W Auto Differential pane l (Bld)on 10-21-2024 Erythrocyte distribution width (RBC) [Ratio] 18.5 % High 11.5 - 14.5 % [facility] Hematocrit (Bld) [Volume fraction] 26 % Low 41.0 - 52.0 % [facility] Hemoglobin (Bld) [Mass/Vol] 8 g/dL Low 13.5 - 17.5 g/dL [facility] Immature granulocytes (Bld) [#/Vol] 0.07 10*3/uL [facility] Immature granulocytes/100 WBC (Bld) 0.6 % 0.0 - 0.9 % [facility] MCH (RBC) [Entitic mass] 27.9 pg 26. 0 - 34.[address] [facility] MCHC (RBC) [Mass/Vol] 30.8 g/dL Low 32.0 - 36.0 g/dL [facility] MCV (RBC) [Entitic vol] 91 fL 80 - [address] [facility] Nucleated RBC/100 WBC (Bld) [Ratio] 0 % [facility] Platelets (Bld) [#/Vol] 549 10*3/uL High [facility] RBC (Bld) [#/Vol] 2.87 10*6/uL Low [facility] WBC (Bld) [#/Vol] 12.4 10*3/uL High [facility] MRSA isol Org specific cx Ql (Nose)Ordered By: Anabelle Guerrero on 10-21-2024 Interpretation and review of laboratory results Normal [facility] Staphylococcus sp identified Org specific cx Nom (Unsp spec) No Staphylococcus aureus isolated [facility] Magnesiumon 10-21-2024 Magnesium [Mass/Vol] 2.03 mg/dL 1.60 - 2.40 mg/dL [facility] Manual differential performe d Ql (Bld)on 10-21-2024 Basophils (Bld) [#/Vol] 0.21 10*3/uL [facility] Basophils/100 WBC (Bld) 1.7 % 0.0 - 2.0 % [facility] Cells Counted Total (Bld) [#] 117 {cells} [facility] Eosinophils (Bld) [#/Vol] 0.21 10*3/uL [facility] Eosinophils/100 WBC (Bld) 1.7 % 0.0 - 6.0 % [facility] Hypochromia Ql (Bld) Mild [facility] Lymphocytes (Bld) [#/Vol] 2.54 10*3/uL [facility] Lymphocytes/100 WBC (Bld) 20.5 % 13.0 - 44.0 % [facility] Monocytes (Bld) [#/Vol] 0.53 10*3/uL [facility] Monocytes/100 WBC (Bld) 4.3 % 2.0 - 10.0 % [facility] RBC morphology finding Nom (Bld) See Below [facility] Segmented neutrophils (Bld) [#/Vol] 8.79 10*3/uL [facility] Segmented neutrophils/100 WBC (Bld) 70.9 % 40.0 - 80.0 % [facility] Variant lymphocytes (Bld) [#/Vol] 0.11 10*3/uL [facility] Variant lymphocytes/100 WBC (Bld) 0.9 % 0.0 - 2.0 % [facility] No Panel Informationon 10-21 Interpretation and review of laboratory results Normal [facility] Interpretation and review of laboratory results Abnormal [facility] Phosphoruson 10-21-2024 Phosphate [Mass/Vol] 3.9 mg/dL 2.5 - 4 .9 mg/dL [facility] US.doppler Lower extremity v ein - bilateralon 10-21-[address] [facility] Work Phone: Radiology Study observation (narrative) [facility] Work Phone: US.doppler Lower extremity v ein - bilateralOrdered By: Viki Colin on 10-21-2024 [facility] Work Phone: Vancomycinon 10-21-2024 Vancomycin [Mass/Vol] 4.4 ug/mL Low 5.0 - 20.0 ug/mL [facility] Vancomycin [Mass/Vol]on Interpretation and review of laboratory results Abnormal [facility] Bacteria identified Cx Nom ( Bld)Ordered By: Jennifer Saravia on 10-20-2024 Bacteria identified Aer cx Nom (Bld) Positive [facility] Interpretation and review of laboratory results Abnormal [facility] Microscopic observation Gram stain Nom (Unsp spec) Positive Critically abnormal [facility] Basic metabolic 2000 panelon 10-20-2024 Anion gap [Moles/Vol] 15 mmol/L 10 - 2 0 mmol/L [facility] Calcium [Mass/Vol] 10.4 mg/dL 8.6 - 10. 6 mg/dL [facility] Chloride [Moles/Vol] 104 mmol/L 98 - 10 7 mmol/L [facility] CO2 [Moles/Vol] 27 mmol/L 21 - 32 mmol/L [facility] Creatinine [Mass/Vol] 1.39 mg/dL High 0.50 - 1.30 mg/dL [facility] GFR/1.73 sq M.predicted among non-blacks MDRD (S/P/Bld) [Vol rate/Area] 61 mL/min/{1.73_m2} - PINF [facility] Glucose [Mass/Vol] 102 mg/dL High 74 - 99 mg/dL Uni [facility] Interpretation and review of laboratory results Abnormal [facility] Potassium [Moles/Vol] 4.5 mmol/L 3.5 - 5.3 mmol/L [facility] Sodium [Moles/Vol] 141 mmol/L 136 - 145 mmol/L [facility] Urea nitrogen [Mass/Vol] 17 mg/dL 6 - 23 mg/d L [facility] Bedside PICC Imagingon 10-20 IMAGING Blood CultureOrdered By: Rubina Saravia on 10-20-2024 Bacteria identified Cx Nom (Bld) Staphylococcus hominis Abnormal [facility] CBC W Auto Differential pane l (Bld)on 10-20-2024 Basophils (Bld) [#/Vol] 0.11 10*3/uL High [facility] Basophils/100 WBC (Bld) 0.7 % 0.0 - 2.0 % [facility] Eosinophils (Bld) [#/Vol] 0.35 10*3/uL [facility] Eosinophils/100 WBC (Bld) 2.1 % 0.0 - 6.0 % [facility] Erythrocyte distribution width (RBC) [Ratio] 18.1 % High 11.5 - 14.5 % [facility] Hematocrit (Bld) [Volume fraction] 27.2 % Low 41.0 - 52.0 % [facility] Hemoglobin (Bld) [Mass/Vol] 8.4 g/dL Low 13.5 - 17.5 g/dL [facility] Immature granulocytes (Bld) [#/Vol] 0.12 10*3/uL [facility] Immature granulocytes/100 WBC (Bld) 0.7 % 0.0 - 0.9 % [facility] Interpretation and review of laboratory results Abnormal [facility] Lymphocytes (Bld) [#/Vol] 1.68 10*3/uL [facility] Lymphocytes/100 WBC (Bld) 10.2 % 13.0 - 44.0 % [facility] MCH (RBC) [Entitic mass] 27.9 pg 26. 0 - 34.[address] [facility] MCHC (RBC) [Mass/Vol] 30.9 g/dL Low 32.0 - 36.0 g/dL [facility] MCV (RBC) [Entitic vol] 90 fL 80 - [address] [facility] Monocytes (Bld) [#/Vol] 1.29 10*3/uL High [facility] Monocytes/100 WBC (Bld) 7.8 % 2.0 - 10.0 % [facility] Neutrophils (Bld) [#/Vol] 12.9 10*3/uL High [facility] Neutrophils/100 WBC (Bld) 78.5 % 40.0 - 80.0 % [facility] Nucleated RBC/100 WBC (Bld) [Ratio] 0 % [facility] Platelets (Bld) [#/Vol] 604 10*3/uL High [facility] RBC (Bld) [#/Vol] 3.01 10*6/uL [facility] (Bld[facility] [#/Vol] 16.5 10*3/uL High [facility] Magnesiumon 10-20-2024 Magnesium [Mass/Vol] 2.13 mg/dL 1.60 - 2.40 mg/dL [facility] No Panel Informationon 10-20 Interpretation and review of laboratory results Normal [facility] Phosphoruson 10-20-2024 Phosphate [Mass/Vol] 3.2 mg/dL 2.5 - 4 .9 mg/dL [facility] Basic metabolic 2000 panelon 10-19-2024 Anion gap [Moles/Vol] 17 mmol/L 10 - 2 0 mmol/L [facility] Calcium [Mass/Vol] 10.2 mg/dL 8.6 - 10. 6 mg/dL [facility] Chloride [Moles/Vol] 102 mmol/L 98 - 10 7 mmol/L [facility] CO2 [Moles/Vol] 25 mmol/L 21 - 32 mmol/L [facility] Creatinine [Mass/Vol] 1.67 mg/dL High 0.50 - 1.30 mg/dL [facility] GFR/1.73 sq M.predicted among non-blacks MDRD (S/P/Bld) [Vol rate/Area] 49 mL/min/{1.73_m2} Low - PINF [facility] Glucose [Mass/Vol] 124 mg/dL High 74 - 99 mg/dL [facility] Interpretation and review of laboratory results Abnormal [facility] Potassium [Moles/Vol] 4 mmol/L 3.5 - 5.3 mmol/L [facility] Sodium [Moles/Vol] 140 mmol/L 136 - 145 mmol/L [facility] Urea nitrogen [Mass/Vol] 15 mg/dL 6 - 23 mg/d L [facility] CBC W Auto Differential pane l (Bld)on 10-19-2024 Basophils (Bld) [#/Vol] 0.1 10*3/uL [facility] Basophils/100 WBC (Bld) 0.7 % 0.0 - 2.0 % [facility] Eosinophils (Bld) [#/Vol] 0.41 10*3/uL [facility] Eosinophils/100 WBC (Bld) 2.8 % 0.0 - 6.0 % [facility] Erythrocyte distribution width (RBC) [Ratio] 17.8 % High 11.5 - 14.5 % [facility] Hematocrit (Bld) [Volume fraction] 25.9 % Low 41.0 - 52.0 % [facility] Hemoglobin (Bld) [Mass/Vol] 8 g/dL Low 13.5 - 17.5 g/dL [facility] Immature granulocytes (Bld) [#/Vol] 0.12 10*3/uL [facility] Immature granulocytes/100 WBC (Bld) 0.8 % 0.0 - 0.9 % [facility] Interpretation and review of laboratory results Abnormal [facility] Lymphocytes (Bld) [#/Vol] 2.16 10*3/uL [facility] Lymphocytes/100 WBC (Bld) 14.6 % 13.0 - 44.0 % [facility] MCH (RBC) [Entitic mass] 27.5 pg 26. 0 - 34.[address] [facility] MCHC (RBC) [Mass/Vol] 30.9 g/dL Low 32.0 - 36.0 g/dL [facility] MCV (RBC) [Entitic vol] 89 fL 80 - [address] [facility] Monocytes (Bld) [#/Vol] 1.23 10*3/uL High [facility] Monocytes/100 WBC (Bld) 8.3 % 2.0 - 10.0 % [facility] Neutrophils (Bld) [#/Vol] 10.82 10*3/uL [facility] Neutrophils/100 WBC (Bld) 72.8 % 40.0 - 80.0 % [facility] Nucleated RBC/100 WBC (Bld) [Ratio] 0 % [facility] Platelets (Bld) [#/Vol] 609 10*3/uL High [facility] RBC (Bld) [#/Vol] 2.91 10*6/uL Low [facility] WBC (Bld) [#/Vol] 14.8 10*3/uL [facility] Comprehensive metabolic 2000 panelon 10-19-2024 Albumin BCP dye [Mass/Vol] 3.4 g/dL 3.4 - 5.0 g/dL [facility] ALP [Catalytic activity/Vol] 76 U/L 33 - 120 U/L [facility] ALT With P-5'-P [Catalytic activity/Vol] 28 U/L 10 - 52 U/L [facility] Anion gap [Moles/Vol] 11 mmol/L 10 - 2 0 mmol/L [facility] AST With P-5'-P [Catalytic activity/Vol] 25 U/L 9 - 39 U/L [facility] Bilirubin [Mass/Vol] 0.2 mg/dL 0.0 - 1 .2 mg/dL [facility] Calcium [Mass/Vol] 10.2 mg/dL 8.6 - 10. 6 mg/dL [facility] Chloride [Moles/Vol] 103 mmol/L 98 - 10 7 mmol/L [facility] CO2 [Moles/Vol] 29 mmol/L 21 - 32 mmol/L [facility] Creatinine [Mass/Vol] 1.55 mg/dL High 0.50 - 1.30 mg/dL [facility] GFR/1.73 sq M.predicted among non-blacks MDRD (S/P/Bld) [Vol rate/Area] 54 mL/min/{1.73_m2} Low - PINF [facility] Glucose [Mass/Vol] 98 mg/dL 74 - 99 mg/dL [facility] Interpretation and review of laboratory results Abnormal [facility] Potassium [Moles/Vol] 4.3 mmol/L 3.5 - 5.3 mmol/L [facility] Protein [Mass/Vol] 7.2 g/dL 6.4 - 8.2 g/dL [facility] Sodium [Moles/Vol] 139 mmol/L 136 - 145 mmol/L [facility] Urea nitrogen [Mass/Vol] 16 mg/dL 6 - 23 mg/d L [facility] Magnesiumon 10-19-2024 Magnesium [Mass/Vol] 2.25 mg/dL 1.60 - 2.40 mg/dL [facility] Magnesium [Mass/Vol] 2.03 mg/dL 1.60 - 2.40 mg/dL [facility] Magnesium [Mass/Vol]on 10-19 Interpretation and review of laboratory results Normal [facility] No Panel Informationon 10-19 Interpretation and review of laboratory results Normal [facility] Phosphate [Mass/Vol]on 10-19 Interpretation and review of laboratory results Normal [facility] Phosphoruson 10-19-2024 Phosphate [Mass/Vol] 3.4 mg/dL 2.5 - 4 .9 mg/dL [facility] Phosphate [Mass/Vol] 3.8 mg/dL 2.5 - 4 .9 mg/dL [facility] Vancomycinon 10-19-2024 Vancomycin [Mass/Vol] 16.6 ug/mL 5.0 - 20.0 ug/mL [facility] Vancomycin [Mass/Vol]on Interpretation and review of laboratory results Normal [facility] Bacteria identified Cx Nom ( Bld)Ordered By: Mary Milton on 10-18-2024 Bacteria identified Aer cx Nom (Bld) Positive [facility] Interpretation and review of laboratory results Abnormal [facility] Microscopic observation Gram stain Nom (Unsp spec) Positive Critically abnormal [facility] Blood CultureOrdered By: Bia Milton on 10-18-2024 Bacteria identified Cx Nom (Bld) Marta puentesa Abnormal [facility] CBC W Auto Differential pane l (Bld)on 10-18-2024 Basophils (Bld) [#/Vol] 0.09 10*3/uL [facility] Basophils/100 WBC (Bld) 0.6 % 0.0 - 2.0 % [facility] Eosinophils (Bld) [#/Vol] 0.35 10*3/uL [facility] Eosinophils/100 WBC (Bld) 2.2 % 0.0 - 6.0 % [facility] Erythrocyte distribution width (RBC) [Ratio] 17.8 % High 11.5 - 14.5 % [facility] Hematocrit (Bld) [Volume fraction] 27.3 % Low 41.0 - 52.0 % [facility] Hemoglobin (Bld) [Mass/Vol] 8.4 g/dL Low 13.5 - 17.5 g/dL [facility] Immature granulocytes (Bld) [#/Vol] 0.17 10*3/uL [facility] Immature granulocytes/100 WBC (Bld) 1.1 % High 0.0 - 0.9 % [facility] Interpretation and review of laboratory results Abnormal [facility] Lymphocytes (Bld) [#/Vol] 2.56 10*3/uL [facility] Lymphocytes/100 WBC (Bld) 16.4 % 13.0 - 44.0 % [facility] MCH (RBC) [Entitic mass] 27.8 pg 26. 0 - 34.[address] [facility] MCHC (RBC) [Mass/Vol] 30.8 g/dL Low 32.0 - 36.0 g/dL [facility] MCV (RBC) [Entitic vol] 90 fL 80 - [address] [facility] Monocytes (Bld) [#/Vol] 1.3 10*3/uL High [facility] Monocytes/100 WBC (Bld) 8.3 % 2.0 - 10.0 % [facility] Neutrophils (Bld) [#/Vol] 11.1 10*3/uL [facility] Neutrophils/100 WBC (Bld) 71.4 % 40.0 - 80.0 % [facility] Nucleated RBC/100 WBC (Bld) [Ratio] 0 % [facility] Platelets (Bld) [#/Vol] 605 10*3/uL High [facility] RBC (Bld) [#/Vol] 3.02 10*6/uL Low [facility] WBC (Bld) [#/Vol] 15.6 10*3/uL [facility] Comprehensive metabolic 2000 panelon 10-18-2024 Albumin BCP dye [Mass/Vol] 3.4 g/dL 3.4 - 5.0 g/dL [facility] ALP [Catalytic activity/Vol] 70 U/L 33 - 120 U/L [facility] ALT With P-5'-P [Catalytic activity/Vol] 17 U/L 10 - 52 U/L [facility] Anion gap [Moles/Vol] 15 mmol/L 10 - 2 0 mmol/L [facility] AST With P-5'-P [Catalytic activity/Vol] 18 U/L 9 - 39 U/L [facility] Bilirubin [Mass/Vol] 0.2 mg/dL 0.0 - 1 .2 mg/dL [facility] Calcium [Mass/Vol] 10.1 mg/dL 8.6 - 10. 6 mg/dL [facility] Chloride [Moles/Vol] 101 mmol/L 98 - 10 7 mmol/L [facility] CO2 [Moles/Vol] 27 mmol/L 21 - 32 mmol/L [facility] Creatinine [Mass/Vol] 1.72 mg/dL High 0.50 - 1.30 mg/dL [facility] GFR/1.73 sq M.predicted among non-blacks MDRD (S/P/Bld) [Vol rate/Area] 48 mL/min/{1.73_m2} Low - PINF [facility] Glucose [Mass/Vol] 97 mg/dL 74 - 99 mg/dL Uni [facility] Interpretation and review of laboratory results Abnormal [facility] Potassium [Moles/Vol] 4 mmol/L 3.5 - 5.3 mmol/L [facility] Protein [Mass/Vol] 7.1 g/dL 6.4 - 8.2 g/dL [facility] Sodium [Moles/Vol] 139 mmol/L 136 - 145 mmol/L [facility] Urea nitrogen [Mass/Vol] 17 mg/dL 6 - 23 mg/d L [facility] Magnesiumon 10-18-2024 Magnesium [Mass/Vol] 2.13 mg/dL 1.60 - 2.40 mg/dL [facility] No Panel Informationon 10-18 [facility] Interpretation and review of laboratory results Normal [facility] Phosphoruson 10-18-2024 Phosphate [Mass/Vol] 3.2 mg/dL 2.5 - 4 .9 mg/dL [facility] Bacteria identified Cx Nom ( Bld)on 10-17-2024 Interpretation and review of laboratory results Normal [facility] Bacteria identified Cx Nom ( Unsp spec)Ordered By: Mari Monique on 10-17-2024 Beta lactamase organism identified Nom (Isol) Positive [facility] Microscopic observation Gram stain Nom (Unsp spec) No polymorphonuclear leukocytes seen [facility] Microscopic observation Gram stain Nom (Unsp spec) No organisms seen [facility] CBC W Auto Differential pane l (Bld)on 10-17-2024 Basophils (Bld) [#/Vol] 0.09 10*3/uL [facility] Basophils/100 WBC (Bld) 0.5 % 0.0 - 2.0 % [facility] Eosinophils (Bld) [#/Vol] 0.27 10*3/uL [facility] Eosinophils/100 WBC (Bld) 1.6 % 0.0 - 6.0 % [facility] Erythrocyte distribution width (RBC) [Ratio] 16.9 % High 11.5 - 14.5 % [facility] Hematocrit (Bld) [Volume fraction] 25.1 % Low 41.0 - 52.0 % [facility] Hemoglobin (Bld) [Mass/Vol] 8.5 g/dL Low 13.5 - 17.5 g/dL [facility] Immature granulocytes (Bld) [#/Vol] 0.13 10*3/uL [facility] Immature granulocytes/100 WBC (Bld) 0.8 % 0.0 - 0.9 % [facility] Interpretation and review of laboratory results Abnormal [facility] Lymphocytes (Bld) [#/Vol] 2.37 10*3/uL [facility] Lymphocytes/100 WBC (Bld) 14.2 % 13.0 - 44.0 % [facility] MCH (RBC) [Entitic mass] 28.1 pg 26. 0 - 34.[address] [facility] MCHC (RBC) [Mass/Vol] 33.9 g/dL 32.0 - 36.0 g/dL [facility] MCV (RBC) [Entitic vol] 83 fL 80 - [address] [facility] Monocytes (Bld) [#/Vol] 1.31 10*3/uL High [facility] Monocytes/100 WBC (Bld) 7.8 % 2.0 - 10.0 % [facility] Neutrophils (Bld) [#/Vol] 12.54 10*3/uL High [facility] Neutrophils/100 WBC (Bld) 75.1 % 40.0 - 80.0 % [facility] Nucleated RBC/100 WBC (Bld) [Ratio] 0 % [facility] Platelets (Bld) [#/Vol] 590 10*3/uL High [facility] RBC (Bld) [#/Vol] 3.02 10*6/uL Low [facility] WBC (Bld) [#/Vol] 16.7 10*3/uL High [facility] Comprehensive metabolic 2000 panelon 10-17-2024 Albumin BCP dye [Mass/Vol] 3.4 g/dL 3.4 - 5.0 g/dL [facility] ALP [Catalytic activity/Vol] 62 U/L 33 - 120 U/L [facility] ALT With P-5'-P [Catalytic activity/Vol] 11 U/L 10 - 52 U/L [facility] Anion gap [Moles/Vol] 16 mmol/L 10 - 2 0 mmol/L [facility] AST With P-5'-P [Catalytic activity/Vol] 35 U/L 9 - 39 U/L [facility] Bilirubin [Mass/Vol] 0.3 mg/dL 0.0 - 1 .2 mg/dL [facility] Calcium [Mass/Vol] 10.2 mg/dL 8.6 - 10. 6 mg/dL [facility] Chloride [Moles/Vol] 103 mmol/L 98 - 10 7 mmol/L [facility] CO2 [Moles/Vol] 25 mmol/L 21 - 32 mmol/L [facility] Creatinine [Mass/Vol] 1.62 mg/dL High 0.50 - 1.30 mg/dL [facility] GFR/1.73 sq M.predicted among non-blacks MDRD (S/P/Bld) [Vol rate/Area] 51 mL/min/{1.73_m2} Low - PINF [facility] Glucose [Mass/Vol] 91 mg/dL 74 - 99 mg/dL [facility] Potassium [Moles/Vol] 5.6 mmol/L High 3.5 - 5.3 mmol/L [facility] Protein [Mass/Vol] 7.3 g/dL 6.4 - 8.2 g/dL [facility] Sodium [Moles/Vol] 138 mmol/L 136 - 145 mmol/L [facility] Urea nitrogen [Mass/Vol] 14 mg/dL 6 - 23 mg/d L [facility] Laboratory - Microbiology an d Antimicrobial susceptibilityon 10-17-2024 Bacteria identified Cx Nom (Bld) No growth at 4 days - FINAL REPORT [facility] Magnesiumon 10-17-2024 Magnesium [Mass/Vol] 2.25 mg/dL 1.60 - 2.40 mg/dL [facility] Magnesium [Mass/Vol] 2.52 mg/dL High 1.60 - 2.40 mg/dL [facility] Magnesium [Mass/Vol]on 10-17 Interpretation and review of laboratory results Normal [facility] No Panel Informationon 10-17 [facility] Interpretation and review of laboratory results Normal [facility] Interpretation and review of laboratory results Abnormal [facility] Phosphoruson 10-17-2024 Phosphate [Mass/Vol] 4.1 mg/dL 2.5 - 4 .9 mg/dL [facility] Renal function 2000 panelon 10-17-2024 Albumin BCP dye [Mass/Vol] 3.7 g/dL 3.4 - 5.0 g/dL [facility] Anion gap [Moles/Vol] 14 mmol/L 10 - 2 0 mmol/L [facility] Calcium [Mass/Vol] 10.4 mg/dL 8.6 - 10. 6 mg/dL [facility] Chloride [Moles/Vol] 99 mmol/L 98 - 10 7 mmol/L [facility] CO2 [Moles/Vol] 27 mmol/L 21 - 32 mmol/L [facility] Creatinine [Mass/Vol] 1.62 mg/dL High 0.50 - 1.30 mg/dL [facility] GFR/1.73 sq M.predicted among non-blacks MDRD (S/P/Bld) [Vol rate/Area] 51 mL/min/{1.73_m2} Low - PINF [facility] Glucose [Mass/Vol] 98 mg/dL 74 - 99 mg/dL Uni [facility] Interpretation and review of laboratory results Abnormal [facility] Phosphate [Mass/Vol] 3.7 mg/dL 2.5 - 4 .9 mg/dL [facility] Potassium [Moles/Vol] 4.3 mmol/L 3.5 - 5.3 mmol/L [facility] Sodium [Moles/Vol] 136 mmol/L 136 - 145 mmol/L [facility] Urea nitrogen [Mass/Vol] 17 mg/dL 6 - 23 mg/d L [facility] Tissue/Wound Culture/SmearOr dered By: Mari Zamoraa on 10-17-2024 Bacteria identified Cx Nom (Unsp spec) (1+) Rare Mixed Anaerobic Bacteria [facility] Bacteria identified Cx Nom (Unsp spec) Negative [facility] Vancomycinon 10-17-2024 Vancomycin [Mass/Vol] 16.8 ug/mL 5.0 - 20.0 ug/mL [facility] Vancomycin [Mass/Vol]on 09-20 [facility] Blood type and Indirect anti body screen panel (Bld)on 10-16-2024 ABO group Nom (Bld) A [facility] antibody screen Ql Negative [facility] D Ag Ql (Bld) Positive [facility] CBC W Auto Differential pane l (Bld)on 10-16-2024 Basophils (Bld) [#/Vol] 0.1 10*3/uL [facility] Basophils/100 WBC (Bld) 0.7 % 0.0 - 2.0 % [facility] Eosinophils (Bld) [#/Vol] 0.41 10*3/uL [facility] Eosinophils/100 WBC (Bld) 2.8 % 0.0 - 6.0 % [facility] Erythrocyte distribution width (RBC) [Ratio] 16.9 % High 11.5 - 14.5 % [facility] Hematocrit (Bld) [Volume fraction] 27.8 % Low 41.0 - 52.0 % [facility] Hemoglobin (Bld) [Mass/Vol] 8.9 g/dL Low 13.5 - 17.5 g/dL [facility] Immature granulocytes (Bld) [#/Vol] 0.17 10*3/uL [facility] Immature granulocytes/100 WBC (Bld) 1.2 % High 0.0 - 0.9 % [facility] Interpretation and review of laboratory results Abnormal [facility] Lymphocytes (Bld) [#/Vol] 2.54 10*3/uL [facility] Lymphocytes/100 WBC (Bld) 17.6 % 13.0 - 44.0 % [facility] MCH (RBC) [Entitic mass] 27.8 pg 26. 0 - 34.[address] [facility] MCHC (RBC) [Mass/Vol] 32 g/dL 32.0 - 36.0 g/dL [facility] MCV (RBC) [Entitic vol] 87 fL 80 - [address] [facility] Monocytes (Bld) [#/Vol] 1.08 10*3/uL High [facility] Monocytes/100 WBC (Bld) 7.5 % 2.0 - 10.0 % [facility] Neutrophils (Bld) [#/Vol] 10.11 10*3/uL High [facility] Neutrophils/100 WBC (Bld) 70.2 % 40.0 - 80.0 % [facility] Nucleated RBC/100 WBC (Bld) [Ratio] 0 % [facility] Platelets (Bld) [#/Vol] 633 10*3/uL High [facility] RBC (Bld) [#/Vol] 3.2 10*6/uL Low [facility] WBC (Bld) [#/Vol] 14.4 10*3/uL High [facility] Comprehensive metabolic 2000 panelon 10-16-2024 Albumin BCP dye [Mass/Vol] 3.4 g/dL 3.4 - 5.0 g/dL [facility] ALP [Catalytic activity/Vol] 60 U/L 33 - 120 U/L [facility] ALT With P-5'-P [Catalytic activity/Vol] 10 U/L 10 - 52 U/L [facility] Anion gap [Moles/Vol] 13 mmol/L 10 - 2 0 mmol/L [facility] AST With P-5'-P [Catalytic activity/Vol] 11 U/L 9 - 39 U/L [facility] Bilirubin [Mass/Vol] 0.2 mg/dL 0.0 - 1 .2 mg/dL [facility] Calcium [Mass/Vol] 10 mg/dL 8.6 - 10. 6 mg/dL [facility] Chloride [Moles/Vol] 103 mmol/L 98 - 10 7 mmol/L [facility] CO2 [Moles/Vol] 26 mmol/L 21 - 32 mmol/L [facility] Creatinine [Mass/Vol] 1.5 mg/dL High 0.50 - 1.30 mg/dL [facility] GFR/1.73 sq M.predicted among non-blacks MDRD (S/P/Bld) [Vol rate/Area] 56 mL/min/{1.73_m2} Low - PINF [facility] Glucose [Mass/Vol] 104 mg/dL High 74 - 99 mg/dL [facility] Interpretation and review of laboratory results Abnormal [facility] Potassium [Moles/Vol] 4.3 mmol/L 3.5 - 5.3 mmol/L [facility] Protein [Mass/Vol] 7.2 g/dL 6.4 - 8.2 g/dL [facility] Sodium [Moles/Vol] 138 mmol/L 136 - 145 mmol/L [facility] Urea nitrogen [Mass/Vol] 12 mg/dL 6 - 23 mg/d L [facility] Electrocardiogram, 12-lead P RN ACS symptomsOrdered By: Campos Villa on 10-16-2024 Atrial Rate [address] [facility] Work Phone: [phone] P [place] [address] [facility] Work Phone: [phone] P Offset [address] [facility] Work Phone: [phone] P Onset [address] [facility] Work Phone: [phone] IN Interval [address] [facility] Work Phone: [phone] Q Onset [address] [facility] Work Phone: [phone] QRS Count [address] [facility] Work Phone: [phone] QRS Duration [address] [facility] Work Phone: [phone] QT Interval [address] [facility] Work Phone: [phone] QTC Calculation(Bazett) 469 ms U [facility] Work Phone: [phone] QTC Fredericia [address] [facility] Work Phone: [phone] R [place] [address] [facility] Work Phone: [phone] T [place] [address] [facility] Work Phone: [phone] T Offset [address] [facility] Work Phone: [phone] Ventricular Rate 126 BPM [facility] Work Phone: [phone] [facility] Work Phone: [phone] Electrocardiogram, 12-lead P RN ACS symptomson 10-16-2024 [facility] Work Phone: Magnesiumon 10-16-2024 Magnesium [Mass/Vol] 2.16 mg/dL 1.60 - 2.40 mg/dL [facility] No Panel Informationon 10-16 Interpretation and review of laboratory results Normal [facility] PT and aPTT panel Coag (PPP) on 10-16-2024 aPTT Coag (PPP) [Time] 30 s Un [facility] INR Coag (PPP) [Relative time] 1 {INR} 0.9 - 1.1 [facility] Interpretation and review of laboratory results Normal [facility] PT Coag (PPP) [Time] 11.4 s [facility] Phosphoruson 10-16-2024 Phosphate [Mass/Vol] 3.2 mg/dL 2.5 - 4 .9 mg/dL [facility] CBC W Auto Differential pane l (Bld)on 10-15-2024 Basophils (Bld) [#/Vol] 0.1 10*3/uL [facility] Basophils/100 WBC (Bld) 0.8 % 0.0 - 2.0 % [facility] Eosinophils (Bld) [#/Vol] 0.4 10*3/uL [facility] Eosinophils/100 WBC (Bld) 3.1 % 0.0 - 6.0 % [facility] Erythrocyte distribution width (RBC) [Ratio] 17.1 % High 11.5 - 14.5 % [facility] Hematocrit (Bld) [Volume fraction] 29.1 % Low 41.0 - 52.0 % [facility] Hemoglobin (Bld) [Mass/Vol] 9.2 g/dL Low 13.5 - 17.5 g/dL [facility] Immature granulocytes (Bld) [#/Vol] 0.09 10*3/uL [facility] Immature granulocytes/100 WBC (Bld) 0.7 % 0.0 - 0.9 % [facility] Interpretation and review of laboratory results Abnormal [facility] Lymphocytes (Bld) [#/Vol] 2.77 10*3/uL [facility] Lymphocytes/100 WBC (Bld) 21.4 % 13.0 - 44.0 % [facility] MCH (RBC) [Entitic mass] 28.4 pg 26. 0 - 34.[address] [facility] MCHC (RBC) [Mass/Vol] 31.6 g/dL Low 32.0 - 36.0 g/dL [facility] MCV (RBC) [Entitic vol] 90 fL 80 - [address] [facility] Monocytes (Bld) [#/Vol] 0.98 10*3/uL [facility] Monocytes/100 WBC (Bld) 7.6 % 2.0 - 10.0 % [facility] Neutrophils (Bld) [#/Vol] 8.58 10*3/uL High [facility] Neutrophils/100 WBC (Bld) 66.4 % 40.0 - 80.0 % [facility] Nucleated RBC/100 WBC (Bld) [Ratio] 0 % [facility] Platelets (Bld) [#/Vol] 635 10*3/uL High [facility] RBC (Bld) [#/Vol] 3.24 10*6/uL Low [facility] WBC (Bld) [#/Vol] 12.9 10*3/uL High [facility] Comprehensive metabolic 2000 panelon 10-15-2024 Albumin BCP dye [Mass/Vol] 3.3 g/dL Low 3.4 - 5.0 g/dL [facility] ALP [Catalytic activity/Vol] 60 U/L 33 - 120 U/L [facility] ALT With P-5'-P [Catalytic activity/Vol] 9 U/L Low 10 - 52 U/L [facility] Anion gap [Moles/Vol] 13 mmol/L 10 - 2 0 mmol/L [facility] AST With P-5'-P [Catalytic activity/Vol] 9 U/L 9 - 39 U/L [facility] Bilirubin [Mass/Vol] 0.2 mg/dL 0.0 - 1 .2 mg/dL [facility] Calcium [Mass/Vol] 9.5 mg/dL 8.6 - 10. 6 mg/dL [facility] Chloride [Moles/Vol] 102 mmol/L 98 - 10 7 mmol/L [facility] CO2 [Moles/Vol] 27 mmol/L 21 - 32 mmol/L [facility] Creatinine [Mass/Vol] 1.53 mg/dL High 0.50 - 1.30 mg/dL [facility] GFR/1.73 sq M.predicted among non-blacks MDRD (S/P/Bld) [Vol rate/Area] 55 mL/min/{1.73_m2} Low - PINF [facility] Glucose [Mass/Vol] 94 mg/dL 74 - 99 mg/[facility] Interpretation and review of laboratory results Abnormal [facility] Potassium [Moles/Vol] 4 mmol/L 3.5 - 5.3 mmol/L [facility] Protein [Mass/Vol] 6.9 g/dL 6.4 - 8.2 g/dL [facility] Sodium [Moles/Vol] 138 mmol/L 136 - 145 mmol/L [facility] Urea nitrogen [Mass/Vol] 10 mg/dL 6 - 23 mg/d L [facility] Magnesiumon 10-15-2024 Magnesium [Mass/Vol] 2.11 mg/dL 1.60 - 2.40 mg/dL [facility] No Panel Informationon 10-15 Interpretation and review of laboratory results Normal [facility] Phosphoruson 10-15-2024 Phosphate [Mass/Vol] 2.5 mg/dL 2.5 - 4 .9 mg/dL [facility] CBC W Auto Differential pane l (Bld)on 10-14-2024 Basophils (Bld) [#/Vol] 0.08 10*3/uL [facility] Basophils/100 WBC (Bld) 0.5 % 0.0 - 2.0 % [facility] Eosinophils (Bld) [#/Vol] 0.3 10*3/uL [facility] Eosinophils/100 WBC (Bld) 2 % 0.0 - 6.0 % [facility] Erythrocyte distribution width (RBC) [Ratio] 17.2 % High 11.5 - 14.5 % [facility] Hematocrit (Bld) [Volume fraction] 26.6 % Low 41.0 - 52.0 % [facility] Hemoglobin (Bld) [Mass/Vol] 8.1 g/dL Low 13.5 - 17.5 g/dL [facility] Immature granulocytes (Bld) [#/Vol] 0.13 10*3/uL [facility] Immature granulocytes/100 WBC (Bld) 0.9 % 0.0 - 0.9 % [facility] Interpretation and review of laboratory results Abnormal [facility] Lymphocytes (Bld) [#/Vol] 1.96 10*3/uL [facility] Lymphocytes/100 WBC (Bld) 13.1 % 13.0 - 44.0 % [facility] MCH (RBC) [Entitic mass] 27.6 pg 26. 0 - 34.[address] [facility] MCHC (RBC) [Mass/Vol] 30.5 g/dL Low 32.0 - 36.0 g/dL [facility] MCV (RBC) [Entitic vol] 91 fL 80 - [address] [facility] Monocytes (Bld) [#/Vol] 0.84 10*3/uL [facility] Monocytes/100 WBC (Bld) 5.6 % 2.0 - 10.0 % [facility] Neutrophils (Bld) [#/Vol] 11.69 10*3/uL High [facility] Neutrophils/100 WBC (Bld) 77.9 % 40.0 - 80.0 % [facility] Nucleated RBC/100 WBC (Bld) [Ratio] 0 % [facility] Platelets (Bld) [#/Vol] 561 10*3/uL High [facility] RBC (Bld) [#/Vol] 2.94 10*6/uL Low [facility] WBC (Bld) [#/Vol] 15 10*3/uL [facility] Comprehensive metabolic 2000 panelon 10-14-2024 Albumin BCP dye [Mass/Vol] 3.1 g/dL Low 3.4 - 5.0 g/dL [facility] ALP [Catalytic activity/Vol] 60 U/L 33 - 120 U/L [facility] ALT With P-5'-P [Catalytic activity/Vol] 9 U/L Low 10 - 52 U/L [facility] Anion gap [Moles/Vol] 13 mmol/L 10 - 2 0 mmol/L [facility] AST With P-5'-P [Catalytic activity/Vol] 6 U/L Low 9 - 39 U/L [facility] Bilirubin [Mass/Vol] 0.2 mg/dL 0.0 - 1 .2 mg/dL [facility] Calcium [Mass/Vol] 9 mg/dL 8.6 - 10. 6 mg/dL [facility] Chloride [Moles/Vol] 102 mmol/L 98 - 10 7 mmol/L [facility] CO2 [Moles/Vol] 26 mmol/L 21 - 32 mmol/L [facility] Creatinine [Mass/Vol] 1.44 mg/dL High 0.50 - 1.30 mg/dL [facility] GFR/1.73 sq M.predicted among non-blacks MDRD (S/P/Bld) [Vol rate/Area] 59 mL/min/{1.73_m2} Low - PINF [facility] Glucose [Mass/Vol] 163 mg/dL High 74 - 99 mg/dL [facility] Interpretation and review of laboratory results Abnormal [facility] Potassium [Moles/Vol] 3.9 mmol/L 3.5 - 5.3 mmol/L [facility] Protein [Mass/Vol] 6.4 g/dL 6.4 - 8.2 g/dL [facility] Sodium [Moles/Vol] 137 mmol/L 136 - 145 mmol/L [facility] Urea nitrogen [Mass/Vol] 15 mg/dL 6 - 23 mg/d L [facility] Extra Urine Rhodes Tubeon 09-19 Extra Tube Hold for add-ons. [facility] Lactateon 10-14-2024 Lactate [Moles/Vol] 1.2 mmol/L 0.4 - 2. 0 mmol/L [facility] Lactate [Moles/Vol] 2.3 mmol/L High 0.4 - 2. 0 mmol/L [facility] Lactate [Moles/Vol]on 2024 Interpretation and review of laboratory results Normal [facility] Interpretation and review of laboratory results Abnormal [facility] No Panel Informationon 10-14 [facility] Vancomycinon 10-14-2024 Vancomycin [Mass/Vol] 14.7 ug/mL 5.0 - 20.0 ug/mL [facility] Vancomycin [Mass/Vol]on 09-19 Interpretation and review of laboratory results Normal [facility] Bacteria identified Cx Nom ( Unsp spec)Ordered By: Alejandra Andrade on 10-13-2024 Beta lactamase organism identified Nom (Isol) Positive [facility] Interpretation and review of laboratory results Abnormal [facility] Microscopic observation Gram stain Nom (Unsp spec) No polymorphonuclear leukocytes seen Abnormal [facility] Microscopic observation Gram stain Nom (Unsp spec) Positive Abnormal [facility] CBC W Auto Differential pane l (Bld)on 10-13-2024 Basophils (Bld) [#/Vol] 0.06 10*3/uL [facility] Basophils/100 WBC (Bld) 0.2 % 0.0 - 2.0 % [facility] Eosinophils (Bld) [#/Vol] 0.18 10*3/uL [facility] Eosinophils/100 WBC (Bld) 0.7 % 0.0 - 6.0 % [facility] Erythrocyte distribution width (RBC) [Ratio] 16.9 % High 11.5 - 14.5 % [facility] Hematocrit (Bld) [Volume fraction] 25.6 % Low 41.0 - 52.0 % [facility] Hemoglobin (Bld) [Mass/Vol] 8.3 g/dL Low 13.5 - 17.5 g/dL [facility] Immature granulocytes (Bld) [#/Vol] 0.15 10*3/uL [facility] Immature granulocytes/100 WBC (Bld) 0.6 % 0.0 - 0.9 % [facility] Interpretation and review of laboratory results Abnormal [facility] Lymphocytes (Bld) [#/Vol] 2.13 10*3/uL [facility] Lymphocytes/100 WBC (Bld) 8.9 % 13.0 - 44.0 % [facility] MCH (RBC) [Entitic mass] 28.4 pg 26. 0 - 34.[address] [facility] MCHC (RBC) [Mass/Vol] 32.4 g/dL 32.0 - 36.0 g/dL [facility] MCV (RBC) [Entitic vol] 88 fL 80 - [address] [facility] Monocytes (Bld) [#/Vol] 1.37 10*3/uL High [facility] Monocytes/100 WBC (Bld) 5.7 % 2.0 - 10.0 % [facility] Neutrophils (Bld) [#/Vol] 20.15 10*3/uL High [facility] Neutrophils/100 WBC (Bld) 83.9 % 40.0 - 80.0 % [facility] Nucleated RBC/100 WBC (Bld) [Ratio] 0 % [facility] Platelets (Bld) [#/Vol] 579 10*3/uL High [facility] RBC (Bld) [#/Vol] 2.92 10*6/uL Low [facility] WBC (Bld) [#/Vol] 24 10*3/uL High [facility] Erythrocyte distribution width (RBC) [Ratio] 17 % High 11.5 - 14.5 % [facility] Hematocrit (Bld) [Volume fraction] 34.1 % Low 41.0 - 52.0 % [facility] Hemoglobin (Bld) [Mass/Vol] 10.5 g/dL Low 13.5 - 17.5 g/dL [facility] Immature granulocytes (Bld) [#/Vol] 0.32 10*3/uL [facility] Immature granulocytes/100 WBC (Bld) 1.1 % High 0.0 - 0.9 % [facility] MCH (RBC) [Entitic mass] 27.9 pg 26. 0 - 34.[address] [facility] MCHC (RBC) [Mass/Vol] 30.8 g/dL Low 32.0 - 36.0 g/dL [facility] MCV (RBC) [Entitic vol] 91 fL 80 - [address] [facility] Nucleated RBC/100 WBC (Bld) [Ratio] 0 % [facility] Platelets (Bld) [#/Vol] 755 10*3/uL High [facility] RBC (Bld) [#/Vol] 3.76 10*6/uL Low [facility] WBC (Bld) [#/Vol] 30.1 10*3/uL High [facility] Comprehensive metabolic 2000 panelon 10-13-2024 Albumin BCP dye [Mass/Vol] 3.9 g/dL 3.4 - 5.0 g/dL [facility] ALP [Catalytic activity/Vol] 76 U/L 33 - 120 U/L [facility] ALT With P-5'-P [Catalytic activity/Vol] 9 U/L Low 10 - 52 U/L [facility] Anion gap [Moles/Vol] 18 mmol/L 10 - 2 0 mmol/L [facility] AST With P-5'-P [Catalytic activity/Vol] 10 U/L 9 - 39 U/L [facility] Bilirubin [Mass/Vol] 0.4 mg/dL 0.0 - 1 .2 mg/dL [facility] Calcium [Mass/Vol] 10.4 mg/dL 8.6 - 10. 6 mg/dL [facility] Chloride [Moles/Vol] 100 mmol/L 98 - 10 7 mmol/L [facility] CO2 [Moles/Vol] 26 mmol/L 21 - 32 mmol/L [facility] Creatinine [Mass/Vol] 1.84 mg/dL High 0.50 - 1.30 mg/dL [facility] GFR/1.73 sq M.predicted among non-blacks MDRD (S/P/Bld) [Vol rate/Area] 44 mL/min/{1.73_m2} Low - PINF [facility] Glucose [Mass/Vol] 144 mg/dL High 74 - 99 mg/dL [facility] Interpretation and review of laboratory results Abnormal [facility] Potassium [Moles/Vol] 4.5 mmol/L 3.5 - 5.3 mmol/L [facility] Protein [Mass/Vol] 7.5 g/dL 6.4 - 8.2 g/dL [facility] Sodium [Moles/Vol] 139 mmol/L 136 - 145 mmol/L [facility] Urea nitrogen [Mass/Vol] 19 mg/dL 6 - 23 mg/d L [facility] ECG 12-LEADon 10-13-2024 ECG 12-LEAD Ventricular Rate 126 Atrial Rate 126 P-R Interval 144 QRS Duration 94 Q-T Interval 324 QTC Calculation(Bazett) 469 P [place] 72 R [place] 49 T [place] 101 QRS Count 21 Q Onset 225 P Onset 153 P Offset 218 T Offset 387 QTC [place] [address] & T wave abnormality, consider lateral ischemia Abnormal ECG Confirmed by Campos Villa ([id number]) on 10/16/2024 6:09:33 PM Normal [facility] Gas and Carbon monoxide and Electrolytes panel (BldA)on 10-13-2024 Anion gap 4 (BldA) [Moles/Vol] 11 [facility] Base excess Calc (Bld) [Moles/Vol] -1 mmol/L -2.0 - 3.0 mmol/L [facility] Calcium.ionized (BldA) [Moles/Vol] 1.3 mmol/L 1.10 - 1.33 mmol/L [facility] Chloride (BldA) [Moles/Vol] 104 mmol/L 98 - 107 mmol/L [facility] CO2 (Bld) [Partial pressure] 42 mm[Hg] [facility] Glucose [Mass/Vol] 152 mg/dL High 74 - 99 mg/dL Uni [facility] HCO3 (Bld) [Moles/Vol] 24.3 mmol/L 22.0 - 26.0 mmol/L [facility] Hematocrit Est (Bld) [Volume fraction] 29 % Low 41.0 - 52.0 % [facility] Hemoglobin (Bld) [Mass/Vol] 9.5 g/dL Low 13.5 - 17.5 g/dL [facility] Inhaled oxygen concentration 28 % [facility] Interpretation and review of laboratory results Abnormal [facility] Lactate (BldA) [Moles/Vol] 0.9 mmol/L 0.4 - 2.0 mmol/L [facility] Oxygen (Bld) [Partial pressure] 73 mm[Hg] Low [facility] Oxyhemoglobin (BldA) [Mass fraction] 94.4 % 94.0 - 98.0 % [facility] pH (Bld) 7.37 [pH] Low 7.38 - 7.[address] [facility] Potassium (BldA) [Moles/Vol] 4.1 mmol/L 3.5 - 5.3 mmol/L [facility] Sodium (BldA) [Moles/Vol] 135 mmol/L Low 136 - 145 mmol/L [facility] Gas panel (BldV)on Anion gap 4 (BldV) [Moles/Vol] 10 mmol/L 10.0 - 25.0 mmol/L [facility] Base excess Calc (BldV) [Moles/Vol] -0.4000 mmol/L -2.0 - 3.0 mmol/L [facility] Calcium.ionized (BldV) [Moles/Vol] 1.31 mmol/L 1.10 - 1.33 mmol/L [facility] Chloride (BldV) [Moles/Vol] 104 mmol/L 98 - 107 mmol/L [facility] CO2 (BldV) [Partial pressure] 51 mm[Hg] [facility] Glucose [Mass/Vol] 154 mg/dL High 74 - 99 mg/dL [facility] HCO3 (Bld) [Moles/Vol] 26.3 mmol/L High 22.0 - 26.0 mmol/L [facility] Hematocrit Est (Bld) [Volume fraction] 36 % Low 41.0 - 52.0 % [facility] Hemoglobin (Bld) [Mass/Vol] 12 g/dL Low 13.5 - 17.5 g/dL [facility] Inhaled oxygen concentration 28 % [facility] Interpretation and review of laboratory results Abnormal [facility] Lactate (BldV) [Moles/Vol] 2.2 mmol/L High 0.4 - 2.0 mmol/L [facility] Oxygen (BldV) [Partial pressure] 36 mm[Hg] [facility] Oxygen saturation in Venous blood 53 % 45 - 75 % [facility] Oxyhemoglobin (BldV) [Mass fraction] 52.4 % 45.0 - 75.0 % [facility] pH (BldV) 7.32 [pH] Low 7.33 - 7.[address] [facility] Potassium (BldV) [Moles/Vol] 4.3 mmol/L 3.5 - 5.3 mmol/L [facility] Sodium (BldV) [Moles/Vol] 136 mmol/L 136 - 145 mmol/L [facility] Lactateon 10-13-2024 Lactate [Moles/Vol] 2.6 mmol/L High 0.4 - 2. 0 mmol/L [facility] Lactate [Moles/Vol] 1.8 mmol/L 0.4 - 2. 0 mmol/L [facility] Lactate [Moles/Vol]on 2024 Interpretation and review of laboratory results Abnormal [facility] Interpretation and review of laboratory results Normal [facility] Manual differential performe d Ql (Bld)on 10-13-2024 Band form neutrophils (Bld) [#/Vol] 4.67 10*3/uL High [facility] Band form neutrophils/100 WBC (Bld) 15.5 % 0.0 - 5.0 % [facility] Basophils (Bld) [#/Vol] 0 [facility] Bas[facility]/100 WBC (Bld) 0 % 0.0 - 2.0 % [facility] Cells Counted Total (Bld) [#] 116 {cells} [facility] Eosinophils (Bld) [#/Vol] 0 10*3/uL [facility] Eosinophils/100 WBC (Bld) 0 % 0.0 - 6.0 % [facility] Lymphocytes (Bld) [#/Vol] 1.02 10*3/uL Low [facility] Lymphocytes/100 WBC (Bld) 3.4 % 13.0 - 44.0 % [facility] Monocytes (Bld) [#/Vol] 0.78 10*3/uL [facility] Monocytes/100 WBC (Bld) 2.6 % 2.0 - 10.0 % [facility] Myelocytes (Bld) [#/Vol] 0.27 10*3/uL [facility] Myelocytes/100 WBC (Bld) 0.9 % 0.0 - 0.0 % [facility] Neutrophils (Bld) [#/Vol] 27.25 10*3/uL High [facility] Promyelocytes (Bld) [#/Vol] 0.27 10*3/uL [facility] Promyelocytes/100 WBC (Bld) 0.9 % 0.0 - 0.0 % [facility] RBC morphology finding Nom (Bld) No significant RBC morphology present [facility] Segmented neutrophils (Bld) [#/Vol] 22.58 10*3/uL [facility] Segmented neutrophils/100 WBC (Bld) 75 % 40.0 - 80.0 % [facility] Variant lymphocytes (Bld) [#/Vol] 0.51 10*3/uL [facility] Variant lymphocytes/100 WBC (Bld) 1.7 % 0.0 - 2.0 % [facility] Natriuretic peptide B [Mass/ Vol]on 10-13-2024 Interpretation and review of laboratory results Normal [facility] Natriuretic peptide B (Bld) [Mass/Vol] 6 pg/mL 0 - 99 pg/mL [facility] No Panel Informationon 10-13 Interpretation and review of laboratory results Abnormal [facility] Tissue/Wound Culture/SmearOr dered By: Alejandra Andrade on 10-13-2024 Bacteria identified Cx Nom (Unsp spec) (4+) Abundant Mixed Gram-Positive and Gram-Negative Bacteria [facility] Bacteria identified Cx Nom (Unsp spec) (4+) Abundant Mixed Anaerobic Bacteria [facility] Tropinin I.cardiac panel Hig h sensitivity methodon 10-13-2024 Interpretation and review of laboratory results Normal [facility] Troponin I, High Sensitivity on 10-13-2024 Tropinin I.cardiac panel High sensitivity method ng/L 0 - 53 ng/L [facility] Urinalysis complete W Reflex Culture panel (U)Ordered By: Vinita Arenas on 10-13-2024 Appearance (U) Clear Clear [facility] Bilirubin (U) [Mass/Vol] Negative NEGATIVE [facility] Color (U) Light-Yellow Light-Yellow, Yellow, Dark-Yellow [facility] Glucose Auto test strip (U) [Mass/Vol] Normal Normal mg/dL [facility] Interpretation and review of laboratory results Abnormal [facility] Ketones (U) [Mass/Vol] Negative NEGAT SULEMA mg/dL [facility] Leukocyte esterase Auto test strip Ql (U) Negative NEGATIVE [facility] Nitrite Auto test strip Ql (U) Negative NEGATIVE [facility] pH (U) 6.5 [pH] 5.0, 5.5, 6.0, 6.5, 7.0, 7.5, 8.0 [facility] Protein (U) [Mass/Vol] 10 (TRACE) NEGAT SULEMA, 10 (TRACE), 20 (TRACE) mg/dL [facility] RBC (U) [#/Vol] 0.03 (TRACE) Abnormal NEGATIVE [facility] Specific gravity (U) [Rel density] 1.023 1.005 - 1.035 [facility] Urobilinogen (U) [Mass/Vol] Normal Normal mg/dL [facility] Urinalysis complete W Reflex Culture panel (U)on 10-13-2024 Interpretation and review of laboratory results Normal [facility] Work Phone: RBC Auto (Urine sed) [#/Area] 3-5 NONE, 1-2, 3-5 /HPF [facility] Work Phone: WBC Auto (Urine sed) [#/Area] 1-5 1-5, NONE /HPF [facility] Work Phone: CBC W Auto Differential pane l (Bld)on 10-12-2024 Basophils (Bld) [#/Vol] 0.09 10*3/uL [facility] Basophils/100 WBC (Bld) 0.6 % 0.0 - 2.0 % [facility] Eosinophils (Bld) [#/Vol] 0.36 10*3/uL [facility] Eosinophils/100 WBC (Bld) 2.5 % 0.0 - 6.0 % [facility] Erythrocyte distribution width (RBC) [Ratio] 17.3 % High 11.5 - 14.5 % [facility] Hematocrit (Bld) [Volume fraction] 30.8 % Low 41.0 - 52.0 % [facility] Hemoglobin (Bld) [Mass/Vol] 9.5 g/dL Low 13.5 - 17.5 g/dL [facility] Immature granulocytes (Bld) [#/Vol] 0.15 10*3/uL [facility] Immature granulocytes/100 WBC (Bld) 1 % High 0.0 - 0.9 % [facility] Interpretation and review of laboratory results Abnormal [facility] Lymphocytes (Bld) [#/Vol] 2.52 10*3/uL [facility] Lymphocytes/100 WBC (Bld) 17.2 % 13.0 - 44.0 % [facility] MCH (RBC) [Entitic mass] 27.3 pg 26. 0 - 34.[address] [facility] MCHC (RBC) [Mass/Vol] 30.8 g/dL Low 32.0 - 36.0 g/dL [facility] MCV (RBC) [Entitic vol] 89 fL 80 - [address] [facility] Monocytes (Bld) [#/Vol] 1.39 10*3/uL High [facility] Monocytes/100 WBC (Bld) 9.5 % 2.0 - 10.0 % [facility] Neutrophils (Bld) [#/Vol] 10.11 10*3/uL High [facility] Neutrophils/100 WBC (Bld) 69.2 % 40.0 - 80.0 % [facility] Nucleated RBC/100 WBC (Bld) [Ratio] 0 % [facility] Platelets (Bld) [#/Vol] 633 10*3/uL High [facility] RBC (Bld) [#/Vol] 3.48 10*6/uL Low [facility] WBC (Bld) [#/Vol] 14.6 10*3/uL High [facility] Comprehensive metabolic 2000 panelon 10-12-2024 Albumin BCP dye [Mass/Vol] 3.5 g/dL 3.4 - 5.0 g/dL [facility] ALP [Catalytic activity/Vol] 66 U/L 33 - 120 U/L [facility] ALT With P-5'-P [Catalytic activity/Vol] 8 U/L Low 10 - 52 U/L [facility] Anion gap [Moles/Vol] 14 mmol/L 10 - 2 0 mmol/L [facility] AST With P-5'-P [Catalytic activity/Vol] 11 U/L 9 - 39 U/L [facility] Bilirubin [Mass/Vol] 0.3 mg/dL 0.0 - 1 .2 mg/dL [facility] Calcium [Mass/Vol] 10 mg/dL 8.6 - 10. 6 mg/dL [facility] Chloride [Moles/Vol] 101 mmol/L 98 - 10 7 mmol/L [facility] CO2 [Moles/Vol] 25 mmol/L 21 - 32 mmol/L [facility] Creatinine [Mass/Vol] 1.61 mg/dL High 0.50 - 1.30 mg/dL [facility] GFR/1.73 sq M.predicted among non-blacks MDRD (S/P/Bld) [Vol rate/Area] 51 mL/min/{1.73_m2} Low - PINF [facility] Glucose [Mass/Vol] 100 mg/dL High 74 - 99 mg/dL Uni [facility] Interpretation and review of laboratory results Abnormal [facility] Potassium [Moles/Vol] 4 mmol/L 3.5 - 5.3 mmol/L [facility] Protein [Mass/Vol] 7.4 g/dL 6.4 - 8.2 g/dL [facility] Sodium [Moles/Vol] 136 mmol/L 136 - 145 mmol/L [facility] Urea nitrogen [Mass/Vol] 16 mg/dL 6 - 23 mg/d L [facility] No Panel Informationon 10-12 [facility] Vancomycinon 10-12-2024 Vancomycin [Mass/Vol] 13.6 ug/mL 5.0 - 20.0 ug/mL [facility] Vancomycin [Mass/Vol]on 09-19 Interpretation and review of laboratory results Normal [facility] Blood type and Indirect anti body screen panel (Bld)on 10-11-2024 ABO group Nom (Bld) [facility] antibody screen Ql Negative [facility] D Ag Ql (Bld) Positive [facility] C-reactive proteinon 025 CRP [Mass/Vol] 7.72 mg/dL High NINF - 1.00 mg/dL [facility] CBC W Auto Differential pane l (Bld)on 10-11-2024 Basophils (Bld) [#/Vol] 0.06 10*3/uL [facility] Basophils/100 WBC (Bld) 0.4 % 0.0 - 2.0 % [facility] Eosinophils (Bld) [#/Vol] 0.39 10*3/uL [facility] Eosinophils/100 WBC (Bld) 2.7 % 0.0 - 6.0 % [facility] Erythrocyte distribution width (RBC) [Ratio] 17.2 % High 11.5 - 14.5 % [facility] Hematocrit (Bld) [Volume fraction] 28.7 % Low 41.0 - 52.0 % [facility] Hemoglobin (Bld) [Mass/Vol] 9.6 g/dL Low 13.5 - 17.5 g/dL [facility] Immature granulocytes (Bld) [#/Vol] 0.17 10*3/uL [facility] Immature granulocytes/100 WBC (Bld) 1.2 % High 0.0 - 0.9 % [facility] Interpretation and review of laboratory results Abnormal [facility] Lymphocytes (Bld) [#/Vol] 3.37 10*3/uL [facility] Lymphocytes/100 WBC (Bld) 23.6 % 13.0 - 44.0 % [facility] MCH (RBC) [Entitic mass] 28.2 pg 26. 0 - 34.[address] [facility] MCHC (RBC) [Mass/Vol] 33.4 g/dL 32.0 - 36.0 g/dL [facility] MCV (RBC) [Entitic vol] 84 fL 80 - [address] [facility] Monocytes (Bld) [#/Vol] 1.62 10*3/uL High [facility] Monocytes/100 WBC (Bld) 11.3 % 2.0 - 10.0 % [facility] Neutrophils (Bld) [#/Vol] 8.67 10*3/uL High [facility] Neutrophils/100 WBC (Bld) 60.8 % 40.0 - 80.0 % [facility] Nucleated RBC/100 WBC (Bld) [Ratio] 0 % [facility] Platelets (Bld) [#/Vol] 650 10*3/uL High [facility] RBC (Bld) [#/Vol] 3.4 10*6/uL Low [facility] WBC (Bld) [#/Vol] 14.3 10*3/uL High [facility] CRP [Mass/Vol]on 10-11-2024 Interpretation and review of laboratory results Abnormal [facility] ESR Westergren method (Bld) [Velocity]on 10-11-2024 ESR (Bld) [Velocity] mm/h High 0 - 20 mm/h Uni [facility] Interpretation and review of laboratory results Abnormal [facility] Extra Urine Rhodes Tubeon 09-19 Extra Tube Hold for add-ons. [facility] Ferritinon 10-11-2024 Ferritin [Mass/Vol] 259 ng/mL 20 - 300 ng/mL [facility] Ferritin [Mass/Vol]on 2024 Interpretation and review of laboratory results Normal [facility] Iron and Iron binding capaci ty panelon 10-11-2024 Interpretation and review of laboratory results Abnormal [facility] Iron [Mass/Vol] 24 ug/dL Low 35 - 150 ug/dL [facility] Iron binding capacity [Mass/Vol] 218 ug/dL Low 240 - 445 ug/dL [facility] Iron binding capacity.unsaturated [Mass/Vol] 194 ug/dL 110 - 370 ug/dL [facility] Iron saturation [Mass fraction] 11 % Low 25 - 45 % [facility] Magnesiumon 10-11-2024 Magnesium [Mass/Vol] 2.19 mg/dL 1.60 - 2.40 mg/dL [facility] Magnesium [Mass/Vol]on 10-11 Interpretation and review of laboratory results Normal [facility] No Panel Informationon 10-11 [facility] Renal function 2000 panelon 10-11-2024 Albumin BCP dye [Mass/Vol] 3.3 g/dL Low 3.4 - 5.0 g/dL [facility] Anion gap [Moles/Vol] 12 mmol/L 10 - 2 0 mmol/L [facility] Calcium [Mass/Vol] 9.4 mg/dL 8.6 - 10. 6 mg/dL [facility] Chloride [Moles/Vol] 106 mmol/L 98 - 10 7 mmol/L [facility] CO2 [Moles/Vol] 24 mmol/L 21 - 32 mmol/L [facility] Creatinine [Mass/Vol] 1.6 mg/dL High 0.50 - 1.30 mg/dL [facility] GFR/1.73 sq M.predicted among non-blacks MDRD (S/P/Bld) [Vol rate/Area] 52 mL/min/{1.73_m2} Low - PINF [facility] Glucose [Mass/Vol] 79 mg/dL 74 - 99 mg/dL [facility] Interpretation and review of laboratory results Abnormal [facility] Phosphate [Mass/Vol] 3.8 mg/dL 2.5 - 4 .9 mg/dL [facility] Potassium [Moles/Vol] 4.1 mmol/L 3.5 - 5.3 mmol/L [facility] Sodium [Moles/Vol] 138 mmol/L 136 - 145 mmol/L [facility] Urea nitrogen [Mass/Vol] 20 mg/dL 6 - 23 mg/d L [facility] Urinalysis complete W Reflex Culture panel (U)on 10-11-2024 Appearance (U) Clear Clear [facility] Bilirubin (U) [Mass/Vol] Negative NEGATIVE [facility] Color (U) Light-Yellow Light-Yellow, Yellow, Dark-Yellow [facility] Glucose Auto test strip (U) [Mass/Vol] Normal Normal mg/dL [facility] Interpretation and review of laboratory results Abnormal [facility] Ketones (U) [Mass/Vol] Negative NEGAT SULEMA mg/dL [facility] Leukocyte esterase Auto test strip Ql (U) Negative NEGATIVE [facility] Nitrite Auto test strip Ql (U) Negative NEGATIVE [facility] pH (U) 7 [pH] 5.0, 5.5, 6.0, 6.5, 7.0, 7.5, 8.0 [facility] Protein (U) [Mass/Vol] Negative NEGAT SULEMA, 10 (TRACE), 20 (TRACE) mg/dL [facility] RBC (U) [#/Vol] Negative NEGATIVE [facility] Specific gravity (U) [Rel density] 1.037 Abnormal 1.005 - 1.035 [facility] Urobilinogen (U) [Mass/Vol] Normal Normal mg/dL [facility] Urine electrolyteson 025 Chloride (U) [Moles/Vol] 123 mmol/L [facility] Chloride/Creatinine Ratio 89 [facility] Creatinine (U) [Mass/Vol] 138.4 mg/dL 20.0 - 370.0 mg/dL [facility] Potassium (U) [Moles/Vol] 50 mmol/L [facility] Potassium/Creatinine (U) [Ratio] 36 Not established mmol/g Creat [facility] Sodium (U) [Moles/Vol] 123 mmol/L [facility] Sodium/Creatinine (U) [Ratio] 89 Not established. mmol/g Creat [facility] Blood type and Indirect anti body screen panel (Bld)on 10-10-2024 ABO group Nom (Bld) A [facility] antibody screen Ql Negative [facility] D Ag Ql (Bld) Positive [facility] CBC W Auto Differential pane l (Bld)on 10-10-2024 Basophils (Bld) [#/Vol] 0.08 10*3/uL [facility] Basophils/100 WBC (Bld) 0.5 % 0.0 - 2.0 % [facility] Eosinophils (Bld) [#/Vol] 0.25 10*3/uL [facility] Eosinophils/100 WBC (Bld) 1.4 % 0.0 - 6.0 % [facility] Erythrocyte distribution width (RBC) [Ratio] 17.4 % High 11.5 - 14.5 % [facility] Hematocrit (Bld) [Volume fraction] 31.9 % Low 41.0 - 52.0 % [facility] Hemoglobin (Bld) [Mass/Vol] 10.5 g/dL Low 13.5 - 17.5 g/dL [facility] Immature granulocytes (Bld) [#/Vol] 0.4 10*3/uL [facility] Immature granulocytes/100 WBC (Bld) 2.3 % High 0.0 - 0.9 % [facility] Interpretation and review of laboratory results Abnormal [facility] Lymphocytes (Bld) [#/Vol] 2.73 10*3/uL [facility] Lymphocytes/100 WBC (Bld) 15.6 % 13.0 - 44.0 % [facility] MCH (RBC) [Entitic mass] 27.5 pg 26. 0 - 34.[address] [facility] MCHC (RBC) [Mass/Vol] 32.9 g/dL 32.0 - 36.0 g/dL [facility] MCV (RBC) [Entitic vol] 84 fL 80 - [address] [facility] Monocytes (Bld) [#/Vol] 1.6 10*3/uL High [facility] Monocytes/100 WBC (Bld) 9.1 % 2.0 - 10.0 % [facility] Neutrophils (Bld) [#/Vol] 12.45 10*3/uL High [facility] Neutrophils/100 WBC (Bld) 71.1 % 40.0 - 80.0 % [facility] Nucleated RBC/100 WBC (Bld) [Ratio] 0 % [facility] Platelets (Bld) [#/Vol] 721 10*3/uL High [facility] RBC (Bld) [#/Vol] 3.82 10*6/uL Low [facility] WBC (Bld) [#/Vol] 17.5 10*3/uL [facility] CT Pelvis W contrast Mp [facility]AL [facility] Work Phone: Radiology Study observation (narrative) [facility] Work Phone: CT Pelvis W contrast IVOrder ed By: Beronica Valentin on 10-10-2024 [facility] Work Phone: Comprehensive metabolic 2000 panelon 10-10-2024 Albumin BCP dye [Mass/Vol] 3.8 g/dL 3.4 - 5.0 g/dL [facility] ALP [Catalytic activity/Vol] 79 U/L 33 - 120 U/L [facility] ALT With P-5'-P [Catalytic activity/Vol] 14 U/L 10 - 52 U/L [facility] Anion gap [Moles/Vol] 16 mmol/L 10 - 2 0 mmol/L [facility] AST With P-5'-P [Catalytic activity/Vol] 9 U/L 9 - 39 U/L [facility] Bilirubin [Mass/Vol] 0.2 mg/dL 0.0 - 1 .2 mg/dL [facility] Calcium [Mass/Vol] 10.4 mg/dL 8.6 - 10. 6 mg/dL [facility] Chloride [Moles/Vol] 104 mmol/L 98 - 10 7 mmol/L [facility] CO2 [Moles/Vol] 23 mmol/L 21 - 32 mmol/L [facility] Creatinine [Mass/Vol] 1.69 mg/dL High 0.50 - 1.30 mg/dL [facility] GFR/1.73 sq M.predicted among non-blacks MDRD (S/P/Bld) [Vol rate/Area] 49 mL/min/{1.73_m2} Low - PINF [facility] Glucose [Mass/Vol] 105 mg/dL High 74 - 99 mg/dL Uni [facility] Interpretation and review of laboratory results Abnormal [facility] Potassium [Moles/Vol] 4.1 mmol/L 3.5 - 5.3 mmol/L [facility] Protein [Mass/Vol] 7.9 g/dL 6.4 - 8.2 g/dL [facility] Sodium [Moles/Vol] 139 mmol/L 136 - 145 mmol/L [facility] Urea nitrogen [Mass/Vol] 21 mg/dL 6 - 23 mg/d L [facility] Gas panel (BldV)on 5 Anion gap 4 (BldV) [Moles/Vol] 11 mmol/L 10.0 - 25.0 mmol/L [facility] Base excess Calc (BldV) [Moles/Vol] 0.9 mmol/L -2.0 - 3.0 mmol/L [facility] Calcium.ionized (BldV) [Moles/Vol] 1.31 mmol/L 1.10 - 1.33 mmol/L [facility] Chloride (BldV) [Moles/Vol] 106 mmol/L 98 - 107 mmol/L [facility] CO2 (BldV) [Partial pressure] 38 mm[Hg] Low [facility] Glucose [Mass/Vol] 109 mg/dL High 74 - 99 mg/dL [facility] HCO3 (Bld) [Moles/Vol] 25.2 mmol/L 22.0 - 26.0 mmol/L [facility] Hematocrit Est (Bld) [Volume fraction] 31 % Low 41.0 - 52.0 % [facility] Hemoglobin (Bld) [Mass/Vol] 10.2 g/dL Low 13.5 - 17.5 g/dL [facility] Inhaled oxygen concentration 21 % [facility] Interpretation and review of laboratory results Abnormal [facility] Lactate (BldV) [Moles/Vol] 1.2 mmol/L 0.4 - 2.0 mmol/L [facility] Oxygen (BldV) [Partial pressure] 43 mm[Hg] [facility] Oxygen saturation in Venous blood 78 % High 45 - 75 % [facility] Oxyhemoglobin (BldV) [Mass fraction] 74.1 % 45.0 - 75.0 % [facility] pH (BldV) 7.43 [pH] 7.33 - 7.[address] [facility] Potassium (BldV) [Moles/Vol] 4.7 mmol/L 3.5 - 5.3 mmol/L [facility] Sodium (BldV) [Moles/Vol] 137 mmol/L 136 - 145 mmol/L [facility] PT and aPTT panel Coag (PPP) on 10-10-2024 aPTT Coag (PPP) [Time] 32 s Un [facility] INR Coag (PPP) [Relative time] 1.2 {INR} High 0.9 - 1.1 [facility] Interpretation and review of laboratory results Abnormal [facility] PT Coag (PPP) [Time] 13.8 s High [facility] XR Chest Single viewon 10-[address] [address] [facility] Work Phone: Radiology Study observation (narrative) [facility] Work Phone: XR Chest Single viewOrdered By: Perry Baires on 10-10-2024 [facility] Work Phone: CBC W Auto Differential pane l (Bld)on 09-17-2024 Basophils (Bld) [#/Vol] 0.06 10*3/uL [facility] Basophils/100 WBC (Bld) 0.5 % 0.0 - 2.0 % [facility] Eosinophils (Bld) [#/Vol] 0.41 10*3/uL [facility] Eosinophils/100 WBC (Bld) 3.3 % 0.0 - 6.0 % [facility] Erythrocyte distribution width (RBC) [Ratio] 17.2 % High 11.5 - 14.5 % [facility] Hematocrit (Bld) [Volume fraction] 27.5 % Low 41.0 - 52.0 % [facility] Hemoglobin (Bld) [Mass/Vol] 8.5 g/dL Low 13.5 - 17.5 g/dL [facility] Immature granulocytes (Bld) [#/Vol] 0.22 10*3/uL [facility] Immature granulocytes/100 WBC (Bld) 1.8 % High 0.0 - 0.9 % [facility] Comment on above: Immature Granulocyte Count (IG) includes promyelocytes, myelocytes and metamyelocytes but does not include bands. Percent differential counts (%) should be interpreted in the context of the absolute cell counts (cells/UL). Interpretation and review of laboratory results Abnormal [facility] Lymphocytes (Bld) [#/Vol] 2.5 10*3/uL [facility] Lymphocytes/100 WBC (Bld) 20.3 % 13.0 - 44.0 % [facility] MCH (RBC) [Entitic mass] 27.2 pg 26. 0 - 34.[address] [facility] MCHC (RBC) [Mass/Vol] 30.9 g/dL Low 32.0 - 36.0 g/dL [facility] MCV (RBC) [Entitic vol] 88 fL 80 - [address] [facility] Monocytes (Bld) [#/Vol] 0.83 10*3/uL [facility] Monocytes/100 WBC (Bld) 6.8 % 2.0 - 10.0 % [facility] Neutrophils (Bld) [#/Vol] 8.27 10*3/uL High [facility] Comment on above: Percent differential counts (%) should be interpreted in the context of the absolute cell counts (cells/uL). Neutrophils/100 WBC (Bld) 67.3 % 40.0 - 80.0 % [facility] Nucleated RBC/100 WBC (Bld) [Ratio] 0 % [facility] Platelets (Bld) [#/Vol] 635 10*3/uL High [facility] RBC (Bld) [#/Vol] 3.13 10*6/uL Low Unive [facility] WBC (Bld) [#/Vol] 12.3 10*3/uL High Unive [facility] Cryptococcus sp Ag LA Ql (Un sp spec)Ordered By: Makenna Grider on 09-17-2024 Interpretation and review of laboratory results Normal [facility] Fungitell Beta-D Glucan Seru mon 09-17-2024 Fungitell Beta-D Glucan,Serum <31 NINF - 80 pg/mL [facility] Comment on above: Interpretation: The Fungitell assay does not detect certain fungal species such as the genus Cryptococcus (Karli et al. 1991) which produces very low levels of (1-3)-Tezw-Q-Iaupqv. The assay also does not detect the Zygomycetes such as Absidia, Mucor and Rhizopus (Jason et al. 1994) which are not known to produce (1-3)-Yedt-K-Tziryo. In addition, the yeast phase of Blastomyces dermatitidis produces little (1-3)-Llng-Q-Qiqycs and may not be detected by the assay (Pierre et al. 2007). Reference Range: Less than 60 pg/mL. Glucan values of less than 60 pg/mL are interpreted as negative. Glucan values of 60 to 79 pg/mL are interpreted as indeterminate, and suggest a possible fungal infection. Additional sampling and testing of sera is required to interpret the results. Glucan values of greater than or equal to 80 pg/mL are interpreted as positive. Due to the potential for environmental contamination when transferred to pour-off tubes, which can lead to false positive results, interpret positive results from samples provided in pour-off tubes with caution. Results should be used in conjunction with clinical findings, and should not form the sole basis for a diagnosis or treatment decision. The Fungitell test is approved or cleared for in vitro diagnostic use by the [place] Food and Drug Administration. Modifications to the approved package insert have been made and the performance characteristics for these modifications were determined by [facility]. If sample result is greater than 500 pg/mL, physician may order a titer of the sample. Please contact [employer] if you would like to order a retest of this sample to obtain an actual value. Samples are held for 1 week after initial testing date. Testing Performed at: [facility], [place] [address] [place] [address], [address] [place] [address] [employer] Resources Instructor: Perry Bueno, PhD ALONDRA (ABB) CLIA # [id number] FLAG Interpretation: A = Abnormal, H = High, L = Low [facility] Laboratory - Chemistry and C hemistry - challengeon 09-17-2024 Magnesium [Mass/Vol] 2.44 mg/dL High 1.60 - 2.40 mg/dL [facility] Laboratory - Microbiology an d Antimicrobial susceptibilityOrdered By: Makenna Grider on 09-17-2024 Cryptococcus sp Ag LA Ql (Unsp spec) Negative Negative, Invalid [facility] No Panel Informationon 09-17 Aspergillus Galactomanan EIA,S 0.027 NINF - 0.500 [facility] Comment on above: Interpretation: Sydni ents with an index value of greater than or equal to 0.5 are considered to be positive for galactomannan antigen. The Platelia(TM) Aspergillus EIA package insert also recommends a new sample be collected from the patient for follow-up testing. Patients with an index value of less than 0.5 are considered to be negative for galactomannan antigen. A negative result may indicate that the patient's result is below the detectable level of the assay. Negative results do not rule out the diagnosis of Invasive Aspergillosis. Pursuant to the package insert, repeat testing is recommended if the result is negative, but the disease is suspected. Due to the potential for environmental contamination when transferred to pour-off tubes, which can lead to false positive results, interpret positive results from samples provided in pour-off tubes with caution. Results should be used in conjunction with clinical findings, and should not form the sole basis for a diagnosis or treatment decision. The Platelia Aspergillus Galactomannan EIA is a product of [employer] and is FDA approved for in vitro diagnostic use. Testing Performed at: [facility] [address] [place] [address], [address] [place] [address] Natural Resources Instructor: Perry Bueno, PhD ALONDRA (ABB) CLIA # [id number] FLAG Interpretation: A = Abnormal, H = High, L = Low [facility] Interpretation and review of laboratory results Abnormal [facility] Renal function 2000 panelon 09-17-2024 Albumin BCP dye [Mass/Vol] 3.1 g/dL Low 3.4 - 5.0 g/dL [facility] Anion gap [Moles/Vol] 16 mmol/L 10 - 2 0 mmol/L [facility] Calcium [Mass/Vol] 9.1 mg/dL 8.6 - 10. 6 mg/dL [facility] Chloride [Moles/Vol] 106 mmol/L 98 - 10 7 mmol/L [facility] CO2 [Moles/Vol] 23 mmol/L 21 - 32 mmol/L [facility] Creatinine [Mass/Vol] 1.89 mg/dL High 0.50 - 1.30 mg/dL [facility] GFR/1.73 sq M.predicted among non-blacks MDRD (S/P/Bld) [Vol rate/Area] 42 mL/min/{1.73_m2} Low - PINF [facility] Comment on above: Calculations of vern mated GFR are performed using the 2020 CKD-EPI Study Refit equation without the race variable for the IDMS-Traceable creatinine methods. https://jasn.asnjournals.org/content/early/ASN.330 7393852 Glucose [Mass/Vol] 85 mg/dL 74 - 99 mg/dL Uni [facility] Phosphate [Mass/Vol] 4.2 mg/dL 2.5 - 4 .9 mg/dL [facility] Comment on above: The performance andres acteristics of phosphorus testing in heparinized plasma have been validated by the individual laboratory site where testing is performed. Testing on heparinized plasma is not approved by the FDA; however, such approval is not necessary. Potassium [Moles/Vol] 4.5 mmol/L 3.5 - 5.3 mmol/L [facility] Sodium [Moles/Vol] 140 mmol/L 136 - 145 mmol/L [facility] Urea nitrogen [Mass/Vol] 15 mg/dL 6 - 23 mg/d L [facility] Bacteria identified Cx Nom ( Unsp spec)on 09-16-2024 Beta lactamase organism identified Nom (Isol) Positive [facility] Work Phone: Microscopic observation Gram stain Nom (Unsp spec) No polymorphonuclear leukocytes seen [facility] Work Phone: [phone] Microscopic observation Gram stain Nom (Unsp spec) No organisms seen [facility] Work Phone: [facility] Work Phone: Beta lactamase organism identified Nom (Isol) Positive [facility] Work Phone: Interpretation and review of laboratory results Abnormal [facility] Work Phone: Microscopic observation Gram stain Nom (Unsp spec) (4+) Abundant Polymorphonuclear leukocytes Abnormal [facility] Work Phone: Microscopic observation Gram stain Nom (Unsp spec) Positive Abnormal [facility] Work Phone: [facility] Work Phone: Bacteria identified Cx Nom ( Unsp spec)Ordered By: Phil Casas on 09-16-2024 Beta lactamase organism identified Nom (Isol) Positive [facility] Interpretation and review of laboratory results Abnormal [facility] Microscopic observation Gram stain Nom (Unsp spec) (4+) Abundant Polymorphonuclear leukocytes Abnormal [facility] Microscopic observation Gram stain Nom (Unsp spec) Positive Abnormal [facility] CBC W Auto Differential pane l (Bld)on 09-16-2024 Basophils (Bld) [#/Vol] 0.05 10*3/uL [facility] Basophils/100 WBC (Bld) 0.4 % 0.0 - 2.0 % [facility] Eosinophils (Bld) [#/Vol] 0.51 10*3/uL [facility] Eosinophils/100 WBC (Bld) 4.1 % 0.0 - 6.0 % [facility] Erythrocyte distribution width (RBC) [Ratio] 17.1 % High 11.5 - 14.5 % [facility] Hematocrit (Bld) [Volume fraction] 25.8 % Low 41.0 - 52.0 % [facility] Hemoglobin (Bld) [Mass/Vol] 8.2 g/dL Low 13.5 - 17.5 g/dL [facility] Immature granulocytes (Bld) [#/Vol] 0.13 10*3/uL [facility] Immature granulocytes/100 WBC (Bld) 1.1 % High 0.0 - 0.9 % [facility] Comment on above: Immature Granulocyte Count (IG) includes promyelocytes, myelocytes and metamyelocytes but does not include bands. Percent differential counts (%) should be interpreted in the context of the absolute cell counts (cells/UL). Interpretation and review of laboratory results Abnormal [facility] Lymphocytes (Bld) [#/Vol] 2.74 10*3/uL [facility] Lymphocytes/100 WBC (Bld) 22.2 % 13.0 - 44.0 % [facility] MCH (RBC) [Entitic mass] 28.1 pg 26. 0 - 34.[address] [facility] MCHC (RBC) [Mass/Vol] 31.8 g/dL Low 32.0 - 36.0 g/dL [facility] MCV (RBC) [Entitic vol] 88 fL 80 - [address] [facility] Monocytes (Bld) [#/Vol] 0.72 10*3/uL [facility] Monocytes/100 WBC (Bld) 5.8 % 2.0 - 10.0 % [facility] Neutrophils (Bld) [#/Vol] 8.18 10*3/uL High [facility] Comment on above: Percent differential counts (%) should be interpreted in the context of the absolute cell counts (cells/uL). Neutrophils/100 WBC (Bld) 66.4 % 40.0 - 80.0 % [facility] Nucleated RBC/100 WBC (Bld) [Ratio] 0 % [facility] Platelets (Bld) [#/Vol] 597 10*3/uL High [facility] RBC (Bld) [#/Vol] 2.92 10*6/uL Low Unive [facility] WBC (Bld) [#/Vol] 12.3 10*3/uL High Unive [facility] Laboratory - Chemistry and C hemistry - challengeon 09-16-2024 Magnesium [Mass/Vol] 2.4 mg/dL 1.60 - 2.40 mg/dL [facility] Laboratory - Drug toxicology on 09-16-2024 Vancomycin [Mass/Vol] 17.6 ug/mL 5.0 - 20.0 ug/mL [facility] Vancomycin [Mass/Vol] 18 ug/mL 5.0 - 20.0 ug/mL [facility] Laboratory - Microbiology an d Antimicrobial susceptibilityon 09-16-2024 Bacteria identified Cx Nom (Unsp spec) (1+) Rare Mixed Skin Microorganisms [facility] Work Phone: Bacteria identified Cx Nom (Unsp spec) (3+) Moderate Mixed Anaerobic Bacteria [facility] Work Phone: Bacteria identified Cx Nom (Unsp spec) (4+) Abundant Mixed Aerobic and Anaerobic Bacteria [facility] Work Phone: Laboratory - Microbiology an d Antimicrobial susceptibilityOrdered By: Phil Casas on 09-16-2024 Bacteria identified Cx Nom (Unsp spec) (2+) Few Mixed Aerobic and Anaerobic Bacteria [facility] Magnesium [Mass/Vol]on 09-16 Interpretation and review of laboratory results Normal [facility] No Panel Informationon 09-16 [facility] Renal function 2000 panelon 09-16-2024 Albumin BCP dye [Mass/Vol] 3.2 g/dL Low 3.4 - 5.0 g/dL [facility] Anion gap [Moles/Vol] 15 mmol/L 10 - 2 0 mmol/L [facility] Calcium [Mass/Vol] 9.3 mg/dL 8.6 - 10. 6 mg/dL [facility] Chloride [Moles/Vol] 104 mmol/L 98 - 10 7 mmol/L [facility] CO2 [Moles/Vol] 26 mmol/L 21 - 32 mmol/L [facility] Creatinine [Mass/Vol] 1.88 mg/dL High 0.50 - 1.30 mg/dL [facility] GFR/1.73 sq M.predicted among non-blacks MDRD (S/P/Bld) [Vol rate/Area] 43 mL/min/{1.73_m2} Low - PINF [facility] Comment on above: Calculations of vern mated GFR are performed using the 2021 CKD-EPI Study Refit equation without the race variable for the IDMS-Traceable creatinine methods. https://jasn.asnjournals.org/content//ASN.027 7971854 Glucose [Mass/Vol] 91 mg/dL 74 - 99 mg/dL Uni [facility] Interpretation and review of laboratory results Abnormal [facility] Phosphate [Mass/Vol] 4 mg/dL 2.5 - 4 .9 mg/dL [facility] Comment on above: The performance andres acteristics of phosphorus testing in heparinized plasma have been validated by the individual laboratory site where testing is performed. Testing on heparinized plasma is not approved by the FDA; however, such approval is not necessary. Potassium [Moles/Vol] 4.6 mmol/L 3.5 - 5.3 mmol/L [facility] Sodium [Moles/Vol] 140 mmol/L 136 - 145 mmol/L [facility] Urea nitrogen [Mass/Vol] 15 mg/dL 6 - 23 mg/d L [facility] Vancomycin [Mass/Vol]on 08-20 Interpretation and review of laboratory results Normal [facility] Vancomycin levels can be monitored according to area under the curve (AUC) or concentration (ug/mL). The preferred monitoring strategy is determined by the patient's renal function and indication for therapy. For AUC monitoring, a random vancomycin level should be interpreted in the context of AUC rather than the concentration at a single point in time. For concentration monitoring, a trough concentration drawn immediately prior to the next dose is preferred. Therapeutic ranges using concentration-guided results: Peak (all ages): 30.0-40.0 ug/mL Trough (all ages): 10.0-20.0 ug/mL [facility] Interpretation and review of laboratory results Normal [facility] Vancomycin levels can be monitored according to area under the curve (AUC) or concentration (ug/mL). The preferred monitoring strategy is determined by the patient's renal function and indication for therapy. For AUC monitoring, a random vancomycin level should be interpreted in the context of AUC rather than the concentration at a single point in time. For concentration monitoring, a trough concentration drawn immediately prior to the next dose is preferred. Therapeutic ranges using concentration-guided results: Peak (all ages): 30.0-40.0 ug/mL Trough (all ages): 10.0-20.0 ug/mL [facility] CBC W Auto Differential pane l (Bld)on 09-15-2024 Basophils (Bld) [#/Vol] 0.05 10*3/uL [facility] Basophils/100 WBC (Bld) 0.4 % 0.0 - 2.0 % [facility] Eosinophils (Bld) [#/Vol] 0.43 10*3/uL [facility] Eosinophils/100 WBC (Bld) 3.9 % 0.0 - 6.0 % [facility] Erythrocyte distribution width (RBC) [Ratio] 16.7 % High 11.5 - 14.5 % [facility] Hematocrit (Bld) [Volume fraction] 25.2 % Low 41.0 - 52.0 % [facility] Hemoglobin (Bld) [Mass/Vol] 8.1 g/dL Low 13.5 - 17.5 g/dL [facility] Immature granulocytes (Bld) [#/Vol] 0.15 10*3/[facility] Immature granulocytes/100 WBC (Bld) 1.3 % High 0.0 - 0.9 % [facility] Comment on above: Immature Granulocyte Count (IG) includes promyelocytes, myelocytes and metamyelocytes but does not include bands. Percent differential counts (%) should be interpreted in the context of the absolute cell counts (cells/UL). Interpretation and review of laboratory results Abnormal [facility] Lymphocytes (Bld) [#/Vol] 2.38 10*3/uL [facility] Lymphocytes/100 WBC (Bld) 21.4 % 13.0 - 44.0 % [facility] MCH (RBC) [Entitic mass] 28.1 pg 26. 0 - 34.[address] [facility] MCHC (RBC) [Mass/Vol] 32.1 g/dL 32.0 - 36.0 g/dL [facility] MCV (RBC) [Entitic vol] 88 fL 80 - [address] [facility] Monocytes (Bld) [#/Vol] 0.69 10*3/uL [facility] Monocytes/100 WBC (Bld) 6.2 % 2.0 - 10.0 % [facility] Neutrophils (Bld) [#/Vol] 7.44 10*3/uL [facility] Comment on above: Percent differential counts (%) should be interpreted in the context of the absolute cell counts (cells/uL). Neutrophils/100 WBC (Bld) 66.8 % 40.0 - 80.0 % [facility] Nucleated RBC/100 WBC (Bld) [Ratio] 0 % [facility] Platelets (Bld) [#/Vol] 526 10*3/uL High [facility] RBC (Bld) [#/Vol] 2.88 10*6/uL Low [facility] WBC (Bld) [#/Vol] 11.1 10*3/uL [facility] Laboratory - Chemistry and C hemistry - challengeon 09-15-2024 Magnesium [Mass/Vol] 2.26 mg/dL 1.60 - 2.40 mg/dL [facility] Magnesium [Mass/Vol]on 09-15 Interpretation and review of laboratory results Normal [facility] No Panel Informationon 09-15 [facility] Renal function 2000 panelon 09-15-2024 Albumin BCP dye [Mass/Vol] 3.1 g/dL Low 3.4 - 5.0 g/dL [facility] Anion gap [Moles/Vol] 15 mmol/L 10 - 2 0 mmol/L [facility] Calcium [Mass/Vol] 8.9 mg/dL 8.6 - 10. 6 mg/dL [facility] Chloride [Moles/Vol] 105 mmol/L 98 - 10 7 mmol/L [facility] CO2 [Moles/Vol] 24 mmol/L 21 - 32 mmol/L [facility] Creatinine [Mass/Vol] 1.77 mg/dL High 0.50 - 1.30 mg/dL [facility] GFR/1.73 sq M.predicted among non-blacks MDRD (S/P/Bld) [Vol rate/Area] 46 mL/min/{1.73_m2} Low - PINF [facility] Comment on above: Calculations of vern mated GFR are performed using the 2020 CKD-EPI Study Refit equation without the race variable for the IDMS-Traceable creatinine methods. https://jasn.asnjournals.org/content//ASN.204 7979881 Glucose [Mass/Vol] 122 mg/dL High 74 - 99 mg/dL [facility] Interpretation and review of laboratory results Abnormal [facility] Phosphate [Mass/Vol] 4.3 mg/dL 2.5 - 4 .9 mg/dL [facility] Comment on above: The performance andres acteristics of phosphorus testing in heparinized plasma have been validated by the individual laboratory site where testing is performed. Testing on heparinized plasma is not approved by the FDA; however, such approval is not necessary. Potassium [Moles/Vol] 4 mmol/L 3.5 - 5.3 mmol/L [facility] Sodium [Moles/Vol] 140 mmol/L 136 - 145 mmol/L [facility] Urea nitrogen [Mass/Vol] 18 mg/dL 6 - 23 mg/d L [facility] Albumin BCP dye [Mass/Vol] 3 g/dL Low 3.4 - 5.0 g/dL [facility] Anion gap [Moles/Vol] 13 mmol/L 10 - 2 0 mmol/L [facility] Calcium [Mass/Vol] 9 mg/dL 8.6 - 10. 6 mg/dL [facility] Chloride [Moles/Vol] 106 mmol/L 98 - 10 7 mmol/L [facility] CO2 [Moles/Vol] 24 mmol/L 21 - 32 mmol/L [facility] Creatinine [Mass/Vol] 1.7 mg/dL High 0.50 - 1.30 mg/dL [facility] GFR/1.73 sq M.predicted among non-blacks MDRD (S/P/Bld) [Vol rate/Area] 48 mL/min/{1.73_m2} Low - PINF [facility] Comment on above: Calculations of vern mated GFR are performed using the 2020 CKD-EPI Study Refit equation without the race variable for the IDMS-Traceable creatinine methods. https://jasn.asnjournals.org/content//ASN.353 4146619 Glucose [Mass/Vol] 116 mg/dL High 74 - 99 mg/dL [facility] Interpretation and review of laboratory results Abnormal [facility] Phosphate [Mass/Vol] 4.6 mg/dL 2.5 - 4 .9 mg/dL [facility] Comment on above: The performance andres acteristics of phosphorus testing in heparinized plasma have been validated by the individual laboratory site where testing is performed. Testing on heparinized plasma is not approved by the FDA; however, such approval is not necessary. Potassium [Moles/Vol] 4 mmol/L 3.5 - 5.3 mmol/L [facility] Sodium [Moles/Vol] 139 mmol/L 136 - 145 mmol/L [facility] Urea nitrogen [Mass/Vol] 17 mg/dL 6 - 23 mg/d L [facility] Blood type and Indirect anti body screen panel (Bld)on 09-14-2024 ABO group Nom (Bld) A [facility] Blood group antibody screen Ql Negative [facility] D Ag Ql (Bld) Positive [facility] Comment on above: 2nd ABO test require d. Order and Collect VERAB [facility] CBC W Auto Differential pane l (Bld)on 09-14-2024 Basophils (Bld) [#/Vol] 0.05 10*3/uL [facility] Basophils/100 WBC (Bld) 0.4 % 0.0 - 2.0 % [facility] Eosinophils (Bld) [#/Vol] 0.47 10*3/uL [facility] Eosinophils/100 WBC (Bld) 3.6 % 0.0 - 6.0 % [facility] Erythrocyte distribution width (RBC) [Ratio] 16.8 % High 11.5 - 14.5 % [facility] Hematocrit (Bld) [Volume fraction] 24.4 % Low 41.0 - 52.0 % [facility] Hemoglobin (Bld) [Mass/Vol] 7.9 g/dL Low 13.5 - 17.5 g/dL [facility] Immature granulocytes (Bld) [#/Vol] 0.07 10*3/uL [facility] Immature granulocytes/100 WBC (Bld) 0.5 % 0.0 - 0.9 % [facility] Comment on above: Immature Granulocyte Count (IG) includes promyelocytes, myelocytes and metamyelocytes but does not include bands. Percent differential counts (%) should be interpreted in the context of the absolute cell counts (cells/UL). Interpretation and review of laboratory results Abnormal [facility] Lymphocytes (Bld) [#/Vol] 1.93 10*3/uL [facility] Lymphocytes/100 WBC (Bld) 14.8 % 13.0 - 44.0 % [facility] MCH (RBC) [Entitic mass] 28.1 pg 26. 0 - 34.[address] [facility] MCHC (RBC) [Mass/Vol] 32.4 g/dL 32.0 - 36.0 g/dL [facility] MCV (RBC) [Entitic vol] 87 fL 80 - [address] [facility] Monocytes (Bld) [#/Vol] 1.3 10*3/uL High [facility] Monocytes/100 WBC (Bld) 10 % 2.0 - 10.0 % [facility] Neutrophils (Bld) [#/Vol] 9.23 10*3/uL High [facility] Comment on above: Percent differential counts (%) should be interpreted in the context of the absolute cell counts (cells/uL). Neutrophils/100 WBC (Bld) 70.7 % 40.0 - 80.0 % [facility] Nucleated RBC/100 WBC (Bld) [Ratio] 0 % [facility] Platelets (Bld) [#/Vol] 528 10*3/uL High [facility] RBC (Bld) [#/Vol] 2.81 10*6/uL Low [facility] WBC (Bld) [#/Vol] 13.1 10*3/uL High [facility] CBC W Auto Differential pane l (Bld)Ordered By: Estephania Tom on 09-14-2024 Basophils (Bld) [#/Vol] 0.04 10*3/uL [facility] Basophils/100 WBC (Bld) 0.3 % 0.0 - 2.0 % [facility] Eosinophils (Bld) [#/Vol] 0.63 10*3/uL [facility] Eosinophils/100 WBC (Bld) 4.7 % 0.0 - 6.0 % [facility] Erythrocyte distribution width (RBC) [Ratio] 16.7 % High 11.5 - 14.5 % [facility] Hematocrit (Bld) [Volume fraction] 24.7 % Low 41.0 - 52.0 % [facility] Hemoglobin (Bld) [Mass/Vol] 7.8 g/dL Low 13.5 - 17.5 g/dL [facility] Immature granulocytes (Bld) [#/Vol] 0.08 10*3/uL [facility] Immature granulocytes/100 WBC (Bld) 0.6 % 0.0 - 0.9 % [facility] Comment on above: Immature Granulocyte Count (IG) includes promyelocytes, myelocytes and metamyelocytes but does not include bands. Percent differential counts (%) should be interpreted in the context of the absolute cell counts (cells/UL). Interpretation and review of laboratory results Abnormal [facility] Lymphocytes (Bld) [#/Vol] 2.35 10*3/uL [facility] Lymphocytes/100 WBC (Bld) 17.5 % 13.0 - 44.0 % [facility] MCH (RBC) [Entitic mass] 27.6 pg 26. 0 - 34.[address] [facility] MCHC (RBC) [Mass/Vol] 31.6 g/dL Low 32.0 - 36.0 g/dL [facility] MCV (RBC) [Entitic vol] 87 fL 80 - [address] [facility] Monocytes (Bld) [#/Vol] 1.18 10*3/uL High [facility] Monocytes/100 WBC (Bld) 8.8 % 2.0 - 10.0 % [facility] Neutrophils (Bld) [#/Vol] 9.13 10*3/uL High [facility] Comment on above: Percent differential counts (%) should be interpreted in the context of the absolute cell counts (cells/uL). Neutrophils/100 WBC (Bld) 68.1 % 40.0 - 80.0 % [facility] Nucleated RBC/100 WBC (Bld) [Ratio] 0 % [facility] Platelets (Bld) [#/Vol] 523 10*3/uL High [facility] RBC (Bld) [#/Vol] 2.83 10*6/uL Low [facility] WBC (Bld) [#/Vol] 13.4 10*3/uL High [facility] Comprehensive metabolic 2000 panelOrdered By: Nabil Bermudez on 09-14-2024 Albumin BCP dye [Mass/Vol] 3 g/dL Low 3.4 - 5.0 g/dL [facility] ALP [Catalytic activity/Vol] 55 U/L 33 - 120 U/L [facility] ALT With P-5'-P [Catalytic activity/Vol] 21 U/L 10 - 52 U/L [facility] Comment on above: Patients treated wit h Sulfasalazine may generate falsely decreased results for ALT. Anion gap [Moles/Vol] 12 mmol/L 10 - 2 0 mmol/L [facility] AST With P-5'-P [Catalytic activity/Vol] 31 U/L 9 - 39 U/L [facility] Bilirubin [Mass/Vol] 0.3 mg/dL 0.0 - 1 .2 mg/dL [facility] Calcium [Mass/Vol] 8.6 mg/dL 8.6 - 10. 6 mg/dL [facility] Chloride [Moles/Vol] 105 mmol/L 98 - 10 7 mmol/L [facility] CO2 [Moles/Vol] 24 mmol/L 21 - 32 mmol/L [facility] Creatinine [Mass/Vol] 1.64 mg/dL High 0.50 - 1.30 mg/dL [facility] GFR/1.73 sq M.predicted among non-blacks MDRD (S/P/Bld) [Vol rate/Area] 50 mL/min/{1.73_m2} Low - PINF [facility] Comment on above: Calculations of vern mated GFR are performed using the 2020 CKD-EPI Study Refit equation without the race variable for the IDMS-Traceable creatinine methods. https://jasn.asnjournals.org/content//ASN.880 2367129 Glucose [Mass/Vol] 137 mg/dL High 74 - 99 mg/dL [facility] Interpretation and review of laboratory results Abnormal [facility] Potassium [Moles/Vol] 4.3 mmol/L 3.5 - 5.3 mmol/L [facility] Protein [Mass/Vol] 6 g/dL Low 6.4 - 8.2 g/dL [facility] Sodium [Moles/Vol] 137 mmol/L 136 - 145 mmol/L [facility] Urea nitrogen [Mass/Vol] 16 mg/dL 6 - 23 mg/d L [facility] ECG 12-LEADon 09-14-2024 ECG 12-LEAD Ventricular Rate 86 Atrial Rate 86 P-R Interval 134 QRS Duration 98 Q-T Interval 360 QTC Calculation(Bazett) 430 P [place] 56 R [place] 62 T [place] 56 QRS Count 14 Q Onset 222 P Onset 155 P Offset 207 T Offset 402 QTC [place] 406 Diagnosis Normal sinus rhythm Normal ECG When compared with ECG of 29-FEB-2024 11:08, No significant change was found Confirmed by Bobby Villa ([id number]) on 09/21/2024 5:01:58 PM Normal [facility] FLUAV and FLUBV RNA MERON+prob e Nom (Unsp spec)on 09-14-2024 FLUAV RNA MERON+probe Ql (Resp) Not detected Not Detected [facility] FLUBV RNA MERON+probe Ql (Resp) Not detected Not Detected [facility] This assay is an in vitro diagnostic multiplex nucleic acid amplification test for the detection and discrimination of Influenza A & B from nasopharyngeal specimens, and has been validated for use at [facility]. Negative results do not preclude Influenza A/B infections, and should not be used as the sole basis for diagnosis, treatment, or other management decisions. If Influenza A/B and RSV PCR results are negative, testing for Parainfluenza virus, Adenovirus and Metapneumovirus is routinely performed for [facility] [place]ology and intensive care inpatients, and is available on other patients by placing an add-on request. [facility] HbA1c (Bld) [Mass fraction]o n 09-14-2024 Average glucose Estimated from glycated hemoglobin (Bld) [Mass/Vol] 126 mg/dL Not Established [facility] Interpretation and review of laboratory results Abnormal [facility] Diagnosis of Diabetes-Adults Non-Diabetic: < or = 5.6% Increased risk for developing diabetes: 5.7-6.4% Diagnostic of diabetes: > or = 6.5% [facility] Laboratory - Chemistry and C hemistry - challengeon 09-14-2024 Magnesium [Mass/Vol] 2.14 mg/dL 1.60 - 2.40 mg/dL [facility] Magnesium [Mass/Vol] 2 mg/dL 1.60 - 2.40 mg/dL [facility] Work Phone: Phosphate [Mass/Vol] 3.8 mg/dL 2.5 - 4 .9 mg/dL [facility] Work Phone: Comment on above: The performance andres acteristics of phosphorus testing in heparinized plasma have been validated by the individual laboratory site where testing is performed. Testing on heparinized plasma is not approved by the FDA; however, such approval is not necessary. Laboratory - Drug toxicology on 09-14-2024 Vancomycin [Mass/Vol] 7.3 ug/mL 5.0 - 20.0 ug/mL [facility] Laboratory - Hematology and Cell countson 09-14-2024 HbA1c (Bld) [Mass fraction] 6 % High See comment [facility] Laboratory - Microbiology an d Antimicrobial susceptibilityon 09-14-2024 SARS-CoV-2 (COVID-19) RNA MERON+probe Ql (Resp) Not detected Not Detected [facility] Lipid 1996 panelon 4 Cholesterol [Mass/Vol] 106 mg/dL 0 - 199 mg/dL [facility] Comment on above: Age Desirable Borderline High High 0-19 Y 0 - 169 170 - 199 >/= 200 20-24 Y 0 - 189 190 - 224 >/= 225 >24 Y 0 - 199 200 - 239 >/= 240 All ranges are based on fasting samples. Specific therapeutic targets will vary based on patient-specific cardiac risk. Pediatric guidelines reference:Pediatrics 2011, 128(S5).Adult guidelines reference: NCEP ATPIII Guidelines,ABDIRAHMAN 2001, 258:2486-66 Venipuncture immediately after or during the administration of Metamizole may lead to falsely low results. Testing should be performed immediately prior to Metamizole dosing. Cholesterol in HDL [Mass/Vol] 16.4 mg/dL [facility] Comment on above: Age Very Low Low Normal High 0-19 Y < 35 < 40 40-45 ---- 20-24 Y ---- < 40 >45 ---- >24 Y ---- < 40 40-60 >60 Cholesterol in LDL [Mass/Vol] 63 mg/dL NINF - 99 mg/dL [facility] Comment on above: Near Borderline AGE Desirable Optimal High High Very High 0-19 Y 0 - 109 --- 110-129 >/= 130 ---- 20-24 Y 0 - 119 --- 120-159 >/= 160 ---- >24 Y 0 - 99 100-129 130-159 160-189 >/=190 Cholesterol in VLDL [Mass/Vol] 27 mg/dL 0 - 40 mg/dL [facility] Cholesterol.total/Choles terol in HDL [Mass ratio] 6.5 {ratio} [facility] Comment on above: Ref Values Desirable < 3.4 High Risk > 5.0 Non HDL Cholesterol 90 mg/dL 0 - 149 mg/dL [facility] on above: Age Desirable Borderline High High Very High 0-19 Y 0 - 119 120 - 144 >/= 145 >/= 160 20-24 Y 0 - 149 150 - 189 >/= 190 ---- >24 Y 30 mg/dL above LDL Cholesterol goal Triglyceride [Mass/Vol] 134 mg/dL 0 - 149 mg/d L [facility] Comment on above: Age Desirable Border line High Very High SEX:B mg/dL mg/dL mg/dL mg/dL <=14D 86-277 ---- ---- ---- 15D-365D 55-277 ---- ---- ---- 1Y-9Y 0-74 75-99 >=100 ---- 10Y-19Y 0-89 90-129 >=130 ---- 20Y-24Y 0-114 115-149 >=150 ---- >= 25Y 0-149 150-199 200-499 >=500 Venipuncture immediately after or during the administration of Metamizole may lead to falsely low results. Testing should be performed immediately prior to Metamizole dosing. Natriuretic peptide B [Mass/ Vol]on 09-14-2024 Interpretation and review of laboratory results Normal [facility] Natriuretic peptide B (Bld) [Mass/Vol] 68 pg/mL 0 - 99 pg/mL [facility] <100 pg/mL - Heart failure unlikely 100-299 pg/mL - Intermediate probability of acute heart failure exacerbation. Correlate with clinical context and patient history. >=300 pg/mL - Heart Failure likely. Correlate with clinical context and patient history. Biotin interference may cause falsely decreased results. Patients taking a Biotin dose of up to 5 mg/day should refrain from taking Biotin for 24 hours before sample collection. Providers may contact their local laboratory for further information. [facility] No Panel Informationon 09-14 Interpretation and review of laboratory results Normal [facility] Extra Tube Hold for add-ons. [facility] Comment on above: Auto resulted. [facility] Extra Tube Hold for add-ons. [facility] Comment on above: Auto resulted. [facility] Interpretation and review of laboratory results Normal [facility] Interpretation and review of laboratory results Normal [facility] Work Phone: [facility] Work Phone: Renal function 2000 panelon 09-14-2024 Albumin BCP dye [Mass/Vol] 2.9 g/dL Low 3.4 - 5.0 g/dL [facility] Anion gap [Moles/Vol] 13 mmol/L 10 - 2 0 mmol/L [facility] Calcium [Mass/Vol] 8.9 mg/dL 8.6 - 10. 6 mg/dL [facility] Chloride [Moles/Vol] 106 mmol/L 98 - 10 7 mmol/L [facility] CO2 [Moles/Vol] 25 mmol/L 21 - 32 mmol/L [facility] Creatinine [Mass/Vol] 1.54 mg/dL High 0.50 - 1.30 mg/dL [facility] GFR/1.73 sq M.predicted among non-blacks MDRD (S/P/Bld) [Vol rate/Area] 54 mL/min/{1.73_m2} Low - PINF [facility] Comment on above: Calculations of vern mated GFR are performed using the 2020 CKD-EPI Study Refit equation without the race variable for the IDMS-Traceable creatinine methods. https://jasn.asnjournals.org/content/early//ASN.944 9092737 Glucose [Mass/Vol] 99 mg/dL 74 - 99 mg/dL [facility] Interpretation and review of laboratory results Abnormal [facility] Phosphate [Mass/Vol] 4.5 mg/dL 2.5 - 4 .9 mg/dL [facility] Comment on above: The performance andres acteristics of phosphorus testing in heparinized plasma have been validated by the individual laboratory site where testing is performed. Testing on heparinized plasma is not approved by the FDA; however, such approval is not necessary. Potassium [Moles/Vol] 4.2 mmol/L 3.5 - 5.3 mmol/L [facility] Sodium [Moles/Vol] 140 mmol/L 136 - 145 mmol/L [facility] Urea nitrogen [Mass/Vol] 14 mg/dL 6 - 23 mg/d L [facility] SARS-CoV-2 (COVID-19) RNA NA A+probe Ql (Resp)on 09-14-2024 This assay has received FDA Emergency Use Authorization (EUA) and is only authorized for the duration of time that circumstances exist to justify the authorization of the emergency use of in vitro diagnostic tests for the detection of SARS-CoV-2 virus and/or diagnosis of COVID-19 infection under section 564(b)(1) of the Act, 21 U.S.C. 360bbb-3(b)(1). This assay is an in vitro diagnostic nucleic acid amplification test for the qualitative detection of SARS-CoV-2 from nasopharyngeal specimens and has been validated for use at [facility]. Negative results do not preclude COVID-19 infections and should not be used as the sole basis for diagnosis, treatment, or other management decisions. [facility] Vancomycin [Mass/Vol]on 08-19 Vancomycin levels can be monitored according to area under the curve (AUC) or concentration (ug/mL). The preferred monitoring strategy is determined by the patient's renal function and indication for therapy. For AUC monitoring, a random vancomycin level should be interpreted in the context of AUC rather than the concentration at a single point in time. For concentration monitoring, a trough concentration drawn immediately prior to the next dose is preferred. Therapeutic ranges using concentration-guided results: Peak (all ages): 30.0-40.0 ug/mL Trough (all ages): 10.0-20.0 ug/mL [facility] XR Chest Single viewon 09-14 1. Right basilar bandlike opacities felt to be atelectatic in nature. Otherwise, no definite focal consolidation or sizable pleural effusion. Signed by: Miha Alves 09/14/2024 8:38 AM Dictation workstation: [id number] MMMICHELLE Interpreted By: Miah Alves, STUDY: XR CHEST 1 VIEW; 09/13/2024 10:22 pm INDICATION: Signs/Symptoms:New fever. COMPARISON: None. ACCESSION NUMBER(S): [id number] ORDERING CLINICIAN: BALDOMERO POWELL FINDINGS: 2 AP radiographs of the chest. CARDIOMEDIASTINAL SILHOUETTE: The cardiomediastinal silhouette is stable in size and configuration. LUNGS: Right basilar bandlike opacity is felt to be atelectatic in nature. Otherwise, there is no pulmonary edema. No focal consolidation or sizeable pleural effusion is identified. No pneumothorax is seen. ABDOMEN: No remarkable upper abdominal findings. BONES: No acute osseous abnormality. MMODAL Miah Alves MD - 09/14/2024 Interpreted By: Miah Alves, STUDY: XR CHEST 1 VIEW; 09/13/2024 10:22 pm INDICATION: Signs/Symptoms:New fever. COMPARISON: None. ACCESSION NUMBER(S): [id number] ORDERING CLINICIAN: BALDOMERO POWELL FINDINGS: 2 AP radiographs of the chest. CARDIOMEDIASTINAL SILHOUETTE: The cardiomediastinal silhouette is stable in size and configuration. LUNGS: Right basilar bandlike opacity is felt to be atelectatic in nature. Otherwise, there is no pulmonary edema. No focal consolidation or sizeable pleural effusion is identified. No pneumothorax is seen. ABDOMEN: No remarkable upper abdominal findings. BONES: No acute osseous abnormality. IMPRESSION: 1. Right basilar bandlike opacities felt to be atelectatic in nature. Otherwise, no definite focal consolidation or sizable pleural effusion. Signed by: Miah Alves 09/14/2024 8:38 AM Dictation workstation: [id number] [facility] Work Phone: XR Chest Single viewOrdered By: Miah Alves on 09-14-2024 [facility] Work Phone: Consulton 09-13-2024 Consult [facility] Wound Care CONSULT Note Kevan La AGE: 49 y.o. GENDER: male : 1975 Subjective: HISTORY of PRESENT ILLNESS HPI Kevan La is a 49 y.o. male who presents for a wound consult. HPI: Kevan is a 49 y.o. male who presents to the emergency department with draining L thigh wound (hx of HS), fatigue, dehydration. Symptoms chronic but worse than usual. Notes dry cough and shortness of breath with walking. Wound Care consulted for "Hydradenitis suppurativa" [facility] HISTORY No past medical history on file. PAST SURGICAL HISTORY No past surgical history on file. FAMILY HISTORY No family history on file. SOCIAL HISTORY ALLERGIES No Known Allergies MEDICATIONS No current facility-administere d medications on file prior to encounter. No current outpatient medications on file prior to encounter. REVIEW OF SYSTEMS Pertinent items are noted in HPI. Objective: BP 110/80 (Patient Position: Lying) Pulse 87 Temp 37.4 ?C (99.3 ?F) (Oral) Resp 18 Ht 6' 7" (2.007 m) Wt 230 lb (104 kg) SpO2 95% BMI 25.91 kg/m? PHYSICAL EXAM General appearance: in no apparent distress, well developed and well nourished, in no respiratory distress and acyanotic, alert, and oriented times 3 Skin: warm and dry Pulmonary: Normal effort, no respiratory distress, no cyanosis Left buttocks: Multiple scattered abscess openings with the largest measuring 1.5x2.5x1.5cm with sinus tracts present. Copious purulent drainage with foul odor. Leda wound indurated, warm, and with erythema, tender to touch. 09/13/24 LABS CBC: Lab Results Component Value Date WBC 17.8 (H) 09/12/2024 HGB 8.9 (L) 09/12/2024 HCT 28.1 (L) 09/12/2024 MCV 88.1 09/12/2024 PLT 568 (H) 09/12/2024 BMP: Lab Results Component Value Date NA 140 09/12/2024 K 4.9 09/12/2024 CL 106 09/12/2024 CO2 22 09/12/2024 BUN 18 09/12/2024 CREATININE 1.48 (H) 09/12/2024 PT/INR: No results found for: "PROTIME", "INR" Prealbumin: No results found for: PREALBUMIN Albumin:No components found for: "LABALBU" Sed Rate:No results found for: "SEDRATE" Micro: No components found for: "BC" Assessment/Plan: Left buttocks: Hydradenitis suppurativa -cleanse with Hibiclens and rinse, apply Clindamycin 1%, cover with Maxorb and ABD pads, secure with Mesh underpants BID and PRN -offload areas as much as possible while in bed and in chair Nutritional support Wound Care to follow Recommend to follow up at [facility] Outpatient wound care center after hospital discharge. Any questions or concerns please secure chat "[facility] wound/ostomy". Thank you for the consult! I personally obtained the gomez and critical portions of the history and physical exam. I reviewed the labs, imaging studies, and electronic medical record. I reviewed the chart documentation and discussed the patient with treatment team members. I have edited the note to reflect my clinical findings and my assessment and plan. Please note, the time of this note does not reflect the time I saw this patient today, but the time of this documentaton. Portions of this note including HPI, ROS, impression/plan, and examination may have been copied forward from admission to today as to provide important historical information essential in contributing to medical decision making. Documentation has been reviewed and edited as necessary to support clinical decision making for today's visit and to reflect my own independent evaluation of this patient. Decision making for today's visit and to reflect my own independent evaluation of this patient. [facility] Consult Pharmacy Managed Vancomycin Dosing Service Consult Note Consult Date: 09/13/24 Patient Name: Kevan La Allergies: Patient has no known allergies. Age: 49 y.o. Sex: male There is no height or weight on file to calculate BMI. Lab Results Component Value Date CREATININE 1.48 (H) 09/12/2024 CREATININE 1.20 04/08/2023 BUN 18 09/12/2024 BUN 14 04/08/2023 WBC 17.8 (H) 09/12/2024 WBC 12.7 (H) 04/08/2023 Calculated CrCl: 85 mL/min Consulted By: Dr. Fer Kennedy Infectious Diagnosis: SSTI (AUC Goal 400-600 mg/L*hr) Antimicrobials: Patient recently received an antibiotic (last 12 hours) None Assessment/Plan: Doses, serum creatinine, and vancomycin levels interfaced automatically to Backtrace I/O and data has been analyzed and interpreted. Start Vancomycin 2000 mg every 24 hours based on patient age, weight, renal function, and infectious diagnosis (20 mg/kg). Predicted AUC = 459 mg/L*hr (goal 400-600 mg/L*hr) Will assess level on 09/14/24 @ 0500 and adjust as appropriate. Trend serum creatinine. Orders placed. Thank you for this consult. Please secure text or call with questions. DATE: 09/13/24 TIME: 11:05 AM Melva Mcdonald [facility] Clinical Pharmacist Available via Secure Chat [facility] ECG 12-LEADon 09-13-2024 ECG 12-LEAD IMPRESSION: Sinus tachycardia Probable left atrial enlargement RSR' in V1 or V2, probably normal variant Electronically Signed On 09-13-2024 00:56:19 EST by Xiomara Kauffman [facility] ED Nursing Noteon 09-13-2024 ED Nursing Note Pt leaving [facility] ED at this time to go to . Belongings with EMS. Normal [facility] ED Nursing Note Report called to RN. RN informed vancomycin was stopped for transport. Normal [facility] ED Nursing Note [facility] ETA 8pm Normal [facility] ED Nursing Note transfer line called - pt will go to [facility]- 5016 bed A. Number for report [phone] Normal [facility] ED Nursing Note [facility] Research Nurse called back. Per the Research Physician, the patient does not have to be transferred to [facility]. All that needs to be done is a Biologic Medication" needs prescribed, and the patient can be admitted here. The patient is in an outpatient study. If any further questions, we can contact AMAN Hancock @ [phone]. [facility] ED Nursing Note Patient is in a study at [facility]. He has provided a card for his physician and nurse in the study. I contacted the nurse "Karissa" and left a message @ [phone]. Patient is on the waiting list for and as of 0800 today there are still no rooms available at for this patient. Karissa called back and will contact her MD's over her and will get back with me. [facility] Gas panel (BldV)Ordered By: Bárbara Carty on 09-13-2024 Anion gap 4 (BldV) [Moles/Vol] 10 mmol/L 10.0 - 25.0 mmol/L [facility] Base excess Calc (BldV) [Moles/Vol] 0.1 mmol/L -2.0 - 3.0 mmol/L [facility] Calcium.ionized (BldV) [Moles/Vol] 1.06 mmol/L Low 1.10 - 1.33 mmol/L [facility] Chloride (BldV) [Moles/Vol] 108 mmol/L High 98 - 107 mmol/L [facility] CO2 (BldV) [Partial pressure] 22 mm[Hg] Low [facility] Glucose [Mass/Vol] 149 mg/dL High 74 - 99 mg/dL [facility] HCO3 (Bld) [Moles/Vol] 21.1 mmol/L Low 22.0 - 26.0 mmol/L [facility] Hematocrit Est (Bld) [Volume fraction] 26 % Low 41.0 - 52.0 % [facility] Hemoglobin (Bld) [Mass/Vol] 8.6 g/dL Low 13.5 - 17.5 g/dL [facility] Inhaled oxygen concentration 98 % [facility] Interpretation and review of laboratory results Abnormal [facility] Lactate (BldV) [Moles/Vol] 1.7 mmol/L 0.4 - 2.0 mmol/L [facility] Oxygen (BldV) [Partial pressure] 142 mm[Hg] High [facility] Oxygen saturation in Venous blood 99 % High 45 - 75 % [facility] Oxyhemoglobin (BldV) [Mass fraction] 95.8 % High 45.0 - 75.0 % [facility] pH (BldV) 7.59 [pH] High 7.33 - 7.[address] [facility] Potassium (BldV) [Moles/Vol] 4.5 mmol/L 3.5 - 5.3 mmol/L [facility] Sodium (BldV) [Moles/Vol] 135 mmol/L Low 136 - 145 mmol/L [facility] No Panel Informationon 09-13 P [place] 54 degrees [facility] IN Interval 126 ms [facility] QRS [place] 49 degrees [facility] QRSD Interval 95 ms [facility] QT Interval 323 ms [facility] QTC Interval 423 ms [facility] T Wave [place] 53 degrees [facility] Sinus tachycardia Probable left atrial enlargement RSR' in V1 or V2, probably normal variant Electronically Signed On 09-13-2024 00:56:19 EST by Xiomara Kauffman CV Xiomara Urias MD - 09/13/2024 IMPRESSION: Sinus tachycardia Probable left atrial enlargement RSR' in V1 or V2, probably normal variant Electronically Signed On 09-13-2024 00:56:19 EST by Xiomara Kauffman [facility] PT and aPTT panel Coag (PPP) Ordered By: Scarlet Wall on 09-13-2024 aPTT Coag (PPP) [Time] 29 s Un [facility] INR Coag (PPP) [Relative time] 1.2 {INR} High 0.9 - 1.1 [facility] Interpretation and review of laboratory results Abnormal [facility] PT Coag (PPP) [Time] 13.5 s High [facility] The APTT is no longer used for monitoring Unfractionated Heparin Therapy. For monitoring Heparin Therapy, use the Heparin Assay. [facility] Urinalysis complete W Reflex Culture panel (U)Ordered By: Elham Gomes on 09-13-2024 Appearance (U) Clear Clear [facility] Bilirubin (U) [Mass/Vol] Negative NEGATIVE [facility] Color (U) Light-Yellow Light-Yellow, Yellow, Dark-Yellow [facility] Glucose Auto test strip (U) [Mass/Vol] Normal Normal mg/dL [facility] Interpretation and review of laboratory results Abnormal [facility] Ketones (U) [Mass/Vol] Negative NEGAT SULEMA mg/dL [facility] Leukocyte esterase Auto test strip Ql (U) Negative NEGATIVE [facility] Nitrite Auto test strip Ql (U) Negative NEGATIVE [facility] pH (U) 7.5 [pH] 5.0, 5.5, 6.0, 6.5, 7.0, 7.5, 8.0 [facility] Protein (U) [Mass/Vol] 10 (TRACE) NEGAT SULEMA, 10 (TRACE), 20 (TRACE) mg/dL [facility] RBC (U) [#/Vol] 0.06 (1+) Abnormal NEGATIVE [facility] Specific gravity (U) [Rel density] 1.014 1.005 - 1.035 [facility] Urobilinogen (U) [Mass/Vol] Normal Normal mg/dL [facility] Urinalysis complete W Reflex Culture panel (U)on 09-13-2024 Interpretation and review of laboratory results Abnormal [facility] Mucus Auto (Urine sed) [#/Area] FEW Reference range not established. /LPF [facility] RBC Auto (Urine sed) [#/Area] 6-10 Abnormal NONE, 1-2, 3-5 /HPF [facility] WBC Auto (Urine sed) [#/Area] 1-5 1-5, NONE /HPF [facility] Vital signson 09-13-2024 Heart rate 103 /min bpm [facility] E-Box - [employer] XR Chest Single viewon 09-13 Radiology Study observation (narrative) [facility] Work Phone: BASIC METABOLIC PANELon 08-19 Anion gap [Moles/Vol] 12 mmol/L Normal 3-13 [facility] Comment on above: Performed By: #### L [id number], [id number], [id number] ####Gambling Broker: BRIAN NUNEZ ([phone])[facility] ([facility])[address] Calcium [Mass/Vol] 9.4 mg/dL Normal 8.4-10.2 [facility] Comment on above: Performed By: #### L [id number], [id number], [id number] ####Gambling Broker: BRIAN NUNEZ ([phone])[facility] ([facility])[address] Chloride [Moles/Vol] 106 mmol/L Normal 98-107 [facility] Comment on above: Performed By: #### L AB15, [id number], [id number] ####Gambling Broker: BRIAN NUNEZ ([phone])[facility] ([facility])[address] [place] [address] [place] CO2 [Moles/Vol] 22 mmol/L Normal 22-29 [facility] Comment on above: Performed By: #### L AB15, [id number], [id number] ####Gambling Broker: BRIAN NUNEZ ([phone])[facility] ([facility])[address] [place] [address] [place] Creatinine [Mass/Vol] 1.48 mg/dL High 0.72-1.25 [facility] Comment on above: Performed By: #### L AB15, [id number], [id number] ####Gambling Broker: BRIAN NUNEZ ([phone])[facility] ([facility])[address] [place] [address] [place] GLOMERULAR FILTRATION RATE ML/MIN/1.73 SQ M.PREDICTED 56.9 mL/min/1.73m*2 Low >60.0 [facility] Comment on above: Result Comment: Calc ulation based on the Chronic Kidney Disease Epidemiology Collaboration (CKD-EPI) equation refit without adjustment for race Performed By: #### L AB15, [id number], [id number] ####Gambling Broker: BRIAN NUNEZ ([phone])[facility] ([facility] Glucose [Mass/Vol] 113 mg/dL High 74-100 [facility] Comment on above: Performed By: #### L AB15, [id number], [id number] ####Gambling Broker: BRIAN NUNEZ ([phone])[facility] ([facility])[address] [place] [address] Potassium [Moles/Vol] 4.9 mmol/L Normal 3.5-5.1 [facility] Comment on above: Result Comment: [facility] potassium values may be up to 0.5 mmol/L lower than serum values. Performed By: #### L AB15, [id number], [id number] ####Gambling Broker: BRIAN NUNEZ ([phone])[facility] ([facility])[address] [place] [address] [place] Sodium [Moles/Vol] 140 mmol/L Normal 136-145 [facility] Comment on above: Performed By: #### L AB15, [id number], [id number] ####Gambling Broker: BRIAN NUNEZ ([id number])[facility] Urea nitrogen [Mass/Vol] 18 mg/dL Normal 9-23 [facility] Comment on above: Performed By: #### L AB15, [id number], [id number] ####Gambling Broker: BRIAN NUNEZ ([id number])[facility] (SB[facility])[address] [place] [address] BLOOD CULTUREon 09-12-2024 Bacteria identified Cx Nom (Bld) BLOOD CULTURE Reference No growth at 5 days ORDER COMMENTS: Blood Collection Site: Left Arm [ S = SUSCEPTIBLE R = RESISTANT I = INTERMEDIATE S-DD = Susceptible-dose dependent NS = Non-susceptible NO = No Interpretation ] Normal [facility] Comment on above: Performed By: #### L [id number], [id number] #### Gambling Broker: JAZLYN JIMENEZ ([id number]) [facility] ([facility]) [address] [place] [address] Bacteria identified Cx Nom (Bld) BLOOD CULTURE Reference No growth at 5 days ORDER COMMENTS: Blood Collection Site: Right Arm [ S = SUSCEPTIBLE R = RESISTANT I = INTERMEDIATE S-DD = Susceptible-dose dependent NS = Non-susceptible NO = No Interpretation ] Normal [facility] Comment on above: Performed By: #### L [id number], [id number] #### Gambling Broker: JAZLYN JIMENEZ ([phone]) [facility] ([facility]) [address] [place] [address] Basic metabolic 1998 panelon 09-12-2024 Anion gap [Moles/Vol] 12 mmol/L 3 - 13 mmol/L [facility] Calcium [Mass/Vol] 9.4 mg/dL 8.4 - 10. 2 mg/dL [facility] [employer] - [employer] Chloride [Moles/Vol] 106 mmol/L 98 - 10 7 mmol/L [facility] CO2 [Moles/Vol] 22 mmol/L 22 - 29 mmol/L [facility] Creatinine [Mass/Vol] 1.48 mg/dL High 0.72 - 1.25 mg/dL [facility] GFR/1.73 sq M.predicted (S/P/Bld) [Vol rate/Area] 56.9 mL/min Low - PINF [facility] Comment on above: Calculation based on the Chronic Kidney Disease Epidemiology Collaboration (CKD-EPI) equation refit without adjustment for race Glucose [Mass/Vol] 113 mg/dL High 74 - 100 mg/dL [facility] Interpretation and review of laboratory results Abnormal [facility] Potassium [Moles/Vol] 4.9 mmol/L 3.5 - 5.1 mmol/L [facility] Comment on above: Plasma potassium jeri ues may be up to 0.5 mmol/L lower than serum values. Sodium [Moles/Vol] 140 mmol/L 136 - 145 mmol/L [facility] Urea nitrogen [Mass/Vol] 18 mg/dL 9 - 23 mg/d L [facility] CBC W Auto Differential pane l (Bld)on 09-12-2024 Basophils (Bld) [#/Vol] 0 10*3/uL 0.0 - 0.2 10*3/uL [facility] Basophils/100 WBC (Bld) 0.2 % 0.0 - 2.0 % [facility] Eosinophils (Bld) [#/Vol] 0.4 10*3/uL 0.0 - 0.5 10*3/uL [facility] Eosinophils/100 WBC (Bld) 2 % 0.0 - 6.0 % [facility] Erythrocyte distribution width (RBC) [Ratio] 17 % High 11.5 - 15.0 % [facility] Hematocrit (Bld) [Volume fraction] 28.1 % Low 40.0 - 52.0 % [facility] Hemoglobin (Bld) [Mass/Vol] 8.9 g/dL Low 13.0 - 18.0 g/dL [facility] Immature granulocytes (Bld) [#/Vol] 0.1 10*3/uL High NINF - 0.1 10*3/uL [facility] Immature granulocytes/100 WBC (Bld) 0.7 % 0.0 - 2.0 % [facility] Interpretation and review of laboratory results Abnormal [facility] Lymphocytes (Bld) [#/Vol] 2.1 10*3/uL 1.0 - 4.3 10*3/uL [facility] Lymphocytes/100 WBC (Bld) 12 % Low 15.0 - 45.0 % [facility] MCH (RBC) [Entitic mass] 27.9 pg 26. 0 - 34.0 pg [facility] MCHC (RBC) [Mass/Vol] 31.7 % 30.5 - 36.0 % [facility] MCV (RBC) [Entitic vol] 88.1 fL 77.0 - 99.0 fL [facility] Monocytes (Bld) [#/Vol] 1.5 10*3/uL High 0.0 - 0.9 10*3/uL [facility] Monocytes/100 WBC (Bld) 8.1 % 5.0 - 13.0 % [facility] Neutrophils (Bld) [#/Vol] 13.7 10*3/uL High 1.8 - 7.5 10*3/uL [facility] Neutrophils/100 WBC (Bld) 77 % 38.0 - 82.0 % [facility] Nucleated RBC/100 WBC (Bld) [Ratio] 0 % [facility] Platelet mean volume (Bld) [Entitic vol] 8.6 fL Low 9.0 - 12.7 fL [facility] Platelets (Bld) [#/Vol] 568 10*3/uL High 140 - 440 10*3/uL [facility] RBC (Bld) [#/Vol] 3.19 10*6/uL Low 4.40 - 5.9 0 10*6/uL [facility] WBC (Bld) [#/Vol] 17.8 10*3/uL High 3.6 - 10.7 10*3/uL [facility] CBC WITH AUTO DIFFERENTIALon 09-12-2024 Basophils (Bld) [#/Vol] 0.0 10*3/uL Normal 0.0-0.2 [facility] Comment on above: Performed By: #### L [id number] ####Gambling Broker: BRIAN NUNEZ ([phone])[facility] ([facility])[address] [place] [address] Basophils/100 WBC (Bld) 0.2 % Normal 0.0-2.0 [facility] Comment on above: Performed By: #### L [id number] ####Gambling Broker: BRIAN NUENZ ([phone])[facility] ([facility])[address] Eosinophils (Bld) [#/Vol] 0.4 10*3/uL Normal 0.0-0.5 [facility] Comment on above: Performed By: #### L [id number] ####Gambling Broker: BRIAN NUNEZ ([id number])[facility] ([facility])[address] Eosinophils/100 WBC (Bld) 2.0 % Normal 0.0-6.0 [facility] Comment on above: Performed By: #### L [id number] ####Gambling Broker: BRIAN NUNEZ ([phone])[facility] (SB[facility])[address] Erythrocyte distribution width (RBC) [Ratio] 17.0 % High 11.5-15.0 [facility] Comment on above: Performed By: #### L [id number] ####Gambling Broker: BRIAN NUNEZ ([id number])[facility] [place] ([facility])[address] [place] [address] Hematocrit (Bld) [Volume fraction] 28.1 % Low 40.0-52.0 [facility] Comment on above: Performed By: #### L [id number] ####Gambling Broker: BRIAN NUNEZ ([id number])[facility] ([facility])[address] Hemoglobin (Bld) [Mass/Vol] 8.9 g/dL Low 13.0-18.0 [facility] Comment on above: Performed By: #### L [id number] ####Gambling Broker: BRIAN NUNEZ ([phone])[facility] ([facility])[address] [place] [address] IMMATURE GRANS % 0.7 % Normal 0.0-2.0 [facility] Comment on above: Performed By: #### L [id number] ####Gambling Broker: BRIAN NUNEZ ([id number])[facility] ([facility])[address] IMMATURE GRANS ABSOLUTE 0.1 10*3/uL High <0.1 [facility] Comment on above: Performed By: #### L [id number] ####Gambling Broker: BRIAN NUNEZ ([id number])[facility] (SB[facility])[address] Lymphocytes (Bld) [#/Vol] 2.1 10*3/uL Normal 1.0-4.3 [facility] Comment on above: Performed By: #### L [id number] ####Gambling Broker: BRIAN ALVAREZBharathiFANNY ([id number])[facility] ([facility])[address] Lymphocytes/100 WBC (Bld) 12.0 % Low 15.0-45.0 [facility] Comment on above: Performed By: #### L [id number] ####Gambling Broker: BRIAN NUNEZ ([id number])[facility] [place] ([facility])[address] MCH (RBC) [Entitic mass] 27.9 pg Normal 26.0-34.0 [facility] Comment on above: Performed By: #### L [id number] ####Gambling Broker: BRIAN NUNEZ ([id number])[facility] [place] ([facility])[address] MCHC 31.7 % Normal 30.5-36.0 [facility] Comment on above: Performed By: #### L [id number] ####Gambling Broker: BRIAN GAYFANNY ([id number])[facility] ([facility])[address] MCV (RBC) [Entitic vol] 88.1 fL Normal 77.0-99.0 [facility] Comment on above: Performed By: #### L [id number] ####Gambling Broker: BRIAN NUNEZ ([id number])[facility] [place] ([facility])[address] [place] [address] [place] Monocytes (Bld) [#/Vol] 1.5 10*3/uL High 0.0-0.9 [facility] Comment on above: Performed By: #### L [id number] ####Gambling Broker: BRIAN NUNEZ ([id number])[facility] [place] ([facility])[address] Monocytes/100 WBC (Bld) 8.1 % Normal 5.0-13.0 [facility] Comment on above: Performed By: #### L [id number] ####Gambling Broker: BRIAN NUNEZ ([id number])[facility] ([facility])[address] NEUTROPHILS ABSOLUTE 13.7 10*3/uL High 1.8-7.5 [facility] Comment on above: Performed By: #### L [id number] ####Gambling Broker: BRIAN NNUEZ ([id number])[facility] ([facility])[address] Neutrophils/100 WBC (Bld) 77.0 % Normal 38.0-82.0 [facility] Comment on above: Performed By: #### L [id number] ####Gambling Broker: BRIAN UNNEZ ([id number])[facility] [place] ([facility])[address] NRBC 0.0 /100 WBCs Normal 0.0-2.0 [facility] Comment on above: Performed By: #### L [id number] ####Gambling Broker: BRIAN NUNEZ ([phone])[facility] ([facility])[address] Platelet mean volume (Bld) [Entitic vol] 8.6 fL Low 9.0-12.7 [facility] Comment on above: Performed By: #### L [id number] ####Gambling Broker: BRIAN NUNEZ ([id number])[facility] [place] ([facility])[address] [place] [address] [place] Platelets (Bld) [#/Vol] 568 10*3/uL High 140-440 [facility] Comment on above: Performed By: #### L [id number] ####Gambling Broker: BRIAN NUNEZ ([id number])[facility] [place] ([facility])[address] RBC (Bld) [#/Vol] 3.19 10*6/uL Low 4.40-5.90 [facility] Comment on above: Performed By: #### L [id number] ####Gambling Broker: BRIAN NUNEZ ([phone])[facility] ([facility])[address] WBC (Bld) [#/Vol] 17.8 10*3/uL High 3.6-10.7 [facility] Comment on above: Performed By: #### L [id number] ####Gambling Broker: BRIAN NUNEZ ([id number])[facility] ([facility])[address] ABDOMEN PELVIS W CONTRAST on 09-12-2024 CT ABDOMEN PELVIS W CONTRAST [facility]AN [place] [facility] 1975 [id number] Exam Date/Time: 09/12/2024 21:13 Procedure: CT ABDOMEN PELVIS W CONTRAST Ordering Provider: KAUFFMAN JONATHAN Reason For Exam: L gluteal draining wounds. Eval for abscess or signs of necrotizing infection. CT ABDOMEN AND PELVIS WITH CONTRAST CLINICAL INDICATION: Draining left gluteal wound. TECHNIQUE: Transaxial sequence through the abdomen and pelvis with 3 mm reconstruction with dynamic intravenous infusion of 75 mL of 370 mg% contrast media. No oral contrast was administered. Coronal and sagittal reconstructions included. Dose reduction was employed with automated exposure control. COMPARISON: None FINDINGS: Exam quality: Examination is limited for evaluation of the gastrointestinal tract due to lack of oral contrast Chest base: No focal consolidation or pleural effusion. In Liver: Normal size and contour. No focal lesion. Biliary tree: Normal caliber. Unremarkable gallbladder. Spleen: No splenomegaly. Adrenals: No mass. Pancreas: Normal. Kidneys: Symmetric contrast enhancement without hydronephrosis. No focal lesion. Free fluid: None. Retroperitoneal/mese nteric lymphadenopathy: None. Aorta: Atherosclerotic. Nonaneurysmal. Bowel: The small bowel is normal in course and caliber. No colonic wall thickening or dilation. Sigmoid diverticulosis without diverticulitis. Normal appendix. Abdominal wall: Subcutaneous edema and subcutaneous emphysema of the left buttock extending along the posterior left thigh. No focal fluid collection within the left buttock. Subcutaneous edema and fluid with thickening of the posterior superficial fascia of the thigh and extension of fluid along the posterior left thigh intramuscular fascial planes. No focal drainable fluid collection. Pelvic organs/viscera: Multiple bladder diverticula. Enlarged prostate. Pelvic lymphadenopathy: Prominent left external iliac node and left inguinal nodes, likely reactive. Osseous structures: No acute abnormality. No cortical irregularity of the left femur. IMPRESSION: Subcutaneous edema and subcutaneous emphysema of the left buttock extending along the posterior left thigh. Extension of fluid into the posterior deep intramuscular fascia of the posterior left thigh. No focal drainable fluid collection. Prominent left external iliac and left inguinal lymph nodes, likely reactive. Additional incidental findings as above. Report Dictated on Electronically Signed By: Raisa Eaton DO Electronically Signed Date/Time: 09/12/2024 9:48 PM EST L gluteal draining wounds. Eval for abscess or signs of necrotizing infection. Normal [facility] CT Abdomen and Pelvis W cont rast Mp 09-12-2024 Subcutaneous edema and subcutaneous emphysema of the left buttock extending along the posterior left thigh. Extension of fluid into the posterior deep intramuscular fascia of the posterior left thigh. No focal drainable fluid collection. Prominent left external iliac and left inguinal lymph nodes, likely reactive. Additional incidental findings as above. Report Dictated on Electronically Signed By: Raisa Eaton DO Electronically Signed Date/Time: 09/12/2024 9:48 PM [facility] RADIOLOGY SYSTEM Patient Name: KEVAN LA : 1975 Exam Date/Time: 09/12/2024 21:13 Procedure: CT ABDOMEN PELVIS W CONTRAST Ordering Provider: KAUFFMAN JONATHAN Reason For Exam: L gluteal draining wounds. Eval for abscess or signs of necrotizing infection. CT ABDOMEN AND PELVIS WITH CONTRAST CLINICAL INDICATION: Draining left gluteal wound. TECHNIQUE: Transaxial sequence through the abdomen and pelvis with 3 mm reconstruction with dynamic intravenous infusion of 75 mL of 370 mg% contrast media. No oral contrast was administered. Coronal and sagittal reconstructions included. Dose reduction was employed with automated exposure control. COMPARISON: None FINDINGS: Exam quality: Examination is limited for evaluation of the gastrointestinal tract due to lack of oral contrast Chest base: No focal consolidation or pleural effusion. In Liver: Normal size and contour. No focal lesion. Biliary tree: Normal caliber. Unremarkable gallbladder. Spleen: No splenomegaly. Adrenals: No mass. Pancreas: Normal. Kidneys: Symmetric contrast enhancement without hydronephrosis. No focal lesion. Free fluid: None. Retroperitoneal/mese nteric lymphadenopathy: None. Aorta: Atherosclerotic. Nonaneurysmal. Bowel: The small bowel is normal in course and caliber. No colonic wall thickening or dilation. Sigmoid diverticulosis without diverticulitis. Normal appendix. Abdominal wall: Subcutaneous edema and subcutaneous emphysema of the left buttock extending along the posterior left thigh. No focal fluid collection within the left buttock. Subcutaneous edema and fluid with thickening of the posterior superficial fascia of the thigh and extension of fluid along the posterior left thigh intramuscular fascial planes. No focal drainable fluid collection. Pelvic organs/viscera: Multiple bladder diverticula. Enlarged prostate. Pelvic lymphadenopathy: Prominent left external iliac node and left inguinal nodes, likely reactive. Osseous structures: No acute abnormality. No cortical irregularity of the left femur. [facility] RADIOLOGY SYSTEM Raisa Eaton DO - 09/12/2024 [facility]AN LA [facility] 1975 [id number] Exam Date/Time: 09/12/2024 21:13 Procedure: CT ABDOMEN PELVIS W CONTRAST Ordering Provider: KAUFFMAN JONATHAN Reason For Exam: L gluteal draining wounds. Eval for abscess or signs of necrotizing infection. CT ABDOMEN AND PELVIS WITH CONTRAST CLINICAL INDICATION: Draining left gluteal wound. TECHNIQUE: Transaxial sequence through the abdomen and pelvis with 3 mm reconstruction with dynamic intravenous infusion of 75 mL of 370 mg% contrast media. No oral contrast was administered. Coronal and sagittal reconstructions included. Dose reduction was employed with automated exposure control. COMPARISON: None FINDINGS: Exam quality: Examination is limited for evaluation of the gastrointestinal tract due to lack of oral contrast Chest base: No focal consolidation or pleural effusion. In Liver: Normal size and contour. No focal lesion. Biliary tree: Normal caliber. Unremarkable gallbladder. Spleen: No splenomegaly. Adrenals: No mass. Pancreas: Normal. Kidneys: Symmetric contrast enhancement without hydronephrosis. No focal lesion. Free fluid: None. Retroperitoneal/mese nteric lymphadenopathy: None. Aorta: Atherosclerotic. Nonaneurysmal. Bowel: The small bowel is normal in course and caliber. No colonic wall thickening or dilation. Sigmoid diverticulosis without diverticulitis. Normal appendix. Abdominal wall: Subcutaneous edema and subcutaneous emphysema of the left buttock extending along the posterior left thigh. No focal fluid collection within the left buttock. Subcutaneous edema and fluid with thickening of the posterior superficial fascia of the thigh and extension of fluid along the posterior left thigh intramuscular fascial planes. No focal drainable fluid collection. Pelvic organs/viscera: Multiple bladder diverticula. Enlarged prostate. Pelvic lymphadenopathy: Prominent left external iliac node and left inguinal nodes, likely reactive. Osseous structures: No acute abnormality. No cortical irregularity of the left femur. IMPRESSION: Subcutaneous edema and subcutaneous emphysema of the left buttock extending along the posterior left thigh. Extension of fluid into the posterior deep intramuscular fascia of the posterior left thigh. No focal drainable fluid collection. Prominent left external iliac and left inguinal lymph nodes, likely reactive. Additional incidental findings as above. Report Dictated on Electronically Signed By: Raisa Eaton DO Electronically Signed Date/Time: 09/12/2024 9:48 PM EST [facility] Radiology Study observation (narrative) [facility] al[facility] CT Abdomen and Pelvis W cont rast IVOrdered By: Raisa Eaton on 09-12-2024 [facility] Work Phone: CULTURE ANAEROBICon 09-12-20 24 CULTURE ANAEROBIC ANAEROBIC CULTURE (A) Reference BACTEROIDES FRAGILIS GROUP Moderate Bacteroides fragilis group (A) [ S = SUSCEPTIBLE R = RESISTANT I = INTERMEDIATE S-DD = Susceptible-dose dependent NS = Non-susceptible NO = No Interpretation ] Normal [facility] Comment on above: Performed By: #### L [id number], [id number] #### Gambling Broker: JAZLYN JIMENEZ ([id number]) [facility] ([facility]) [address] [place] [address] CULTURE, AEROBIC BACTERIA WI TH GRAM STAINon 09-12-2024 CULTURE, AEROBIC BACTERIA WITH GRAM STAIN CULTURE Reference Few skin phil present ARCANOBACTERIUM HAEMOLYTICUM Many Arcanobacterium haemolyticum (A) GRAM STAIN RESULT (A) Reference (A) Many Polymorphonuclear leukocytes per low power field Many Gram positive cocci in pairs and chains Moderate Gram positive bacilli Rare Gram negative bacilli Organism: ARCANOBACTERIUM HAEMOLYTICUM Antibiotic ASHLEY Interpretation Status Penicillin <=0.016 ug/ml S F Ceftriaxone 0.032 ug/ml S F Clindamycin <=0.016 ug/ml S F Linezolid 0.125 ug/ml S F Meropenem 0.032 ug/ml S F Vancomycin 1 ug/ml S F [ S = SUSCEPTIBLE R = RESISTANT I = INTERMEDIATE S-DD = Susceptible-dose dependent NS = Non-susceptible NO = No Interpretation ] Normal [facility] Comment on above: Performed By: #### L [id number], [id number] #### Gambling Broker: JAZLYN JIMENEZ ([phone]) [facility] ([address] ED Provider Noteon ED Provider Note [facility] ED EMERGENCY DEPARTMENT ENCOUNTER Pt Name: Kevan La Birthdate 1975 Date of evaluation: 09/12/2024 Provider: Xiomara Kauffman MD CHIEF COMPLAINT Chief Complaint Patient presents with Dehydration Fatigue Patient arrived to ED c/o dehydration and fatigue for a few days. Also c/o cough. HISTORY OF PRESENT ILLNESS I wore proper PPE for the entirety of this encounter. Kevan La is a 49 y.o. male who presents to the emergency department with draining L thigh wound (hx of HS), fatigue, dehydration. Symptoms chronic but worse than usual. Notes dry cough and shortness of breath with walking. No chest pain. Has some post-tussive emesis. Denies other significant medical issues besides incontinence. Nursing Notes were reviewed. REVIEW OF SYSTEMS As above PAST MEDICAL HISTORY No past medical history on file. SURGICAL HISTORY No past surgical history on file. CURRENT MEDICATIONS Previous Medications No medications on file ALLERGIES Patient has no known allergies. FAMILY HISTORY No family history on file. SOCIAL HISTORY Social History Socioeconomic History Marital status: Single SCREENINGS PHYSICAL EXAM ED Triage Vitals [12/26/24 1948] Temp Heart Rate Resp BP 38 ?C (100.4 ?F) (!) 111 16 124/81 SpO2 Temp Source Heart Rate Source Patient Position 99 % Temporal Monitor -- BP Location FiO2 (%) -- -- Constitutional: No acute distress HEENT:Head: Atraumatic Eyes: Conjunctivae normal. ENT: Mucous membranes moist. Normal oropharynx Neck: Normal ROM, supple CV: tachycardic RESP: CTAB, good respiratory effort, no increased wob GI: Abdomen soft, non-tender, non-distended, +BS, no guarding or rebound tenderness MSK: Normal bulk and tone, no gross deformity EXTR: Warm and well perfused, no edema SKIN: Multiple wounds on the L buttocks draining pus. Induration. No fluctuance. PSYCH: Appropriate affect, cooperative behavior NEURO: Alert, face symmetric, no slurred speech DIAGNOSTIC RESULTS Interpretation per the Radiologist below, if available at the time of this note: CT abdomen pelvis w contrast Final Result Subcutaneous edema and subcutaneous emphysema of the left buttock extending along the posterior left thigh. Extension of fluid into the posterior deep intramuscular fascia of the posterior left thigh. No focal drainable fluid collection. Prominent left external iliac and left inguinal lymph nodes, likely reactive. Additional incidental findings as above. Report Dictated on Electronically Signed By: Raisa Eaton DO Electronically Signed Date/Time: 09/12/2024 9:48 PM EST XR chest 1 view Final Result 1. No acute findings. Report Dictated on Electronically Signed By: Elias Hutson MD Electronically Signed Date/Time: 09/12/2024 8:28 PM EST LABS: Labs Reviewed BASIC METABOLIC PANEL - Abnormal Result Value SODIUM 140 POTASSIUM 4.9 CHLORIDE 106 CARBON DIOXIDE 22 UREA NITROGEN 18 CREATININE 1.48 (*) GLUCOSE 113 (*) CALCIUM 9.4 ANION GAP 12 eGFR 56.9 (*) CBC WITH AUTO DIFFERENTIAL - Abnormal Auto WBC 17.8 (*) RBC 3.19 (*) Hemoglobin 8.9 (*) Hematocrit 28.1 (*) MCV 88.1 MCH 27.9 MCHC 31.7 RDW 17.0 (*) Platelets 568 (*) MPV 8.6 (*) nRBC 0.0 Neutrophils Relative 77.0 Lymphocytes Relative 12.0 (*) Monocytes Relative 8.1 Eosinophils Relative 2.0 Basophils Relative 0.2 Immature Grans % 0.7 Neutrophils Absolute 13.7 (*) Lymphocytes Absolute 2.1 Monocytes Absolute 1.5 (*) Eosinophils Absolute 0.4 Basophils Absolute 0.0 Immature Grans Absolute 0.1 (*) NT PRO BNP - Abnormal NT PRO BNP 589 (*) HIGH SENSITIVITY TROPONIN, SERIAL BASELINE - Normal Troponin HS, Serial Baseline 4 LACTIC ACID WITH REFLEX - Normal LACTIC ACID 2.0 BLOOD CULTURE BLOOD CULTURE AEROBIC AND ANAEROBIC CULTURE WITH STAIN Narrative: The following orders were created for panel order Aerobic and Anaerobic Culture with Stain. Procedure Abnormality Status --------- ------ Culture, Aerobic Bacteri...[[id number] ] In process Anaerobic culture[[id number]] In process Please view results for these tests on the individual orders. CULTURE, AEROBIC BACTERIA WITH GRAM STAIN CULTURE ANAEROBIC HIGH SENSITIVITY TROPONIN, SERIAL, SECOND TEST EMERGENCY DEPARTMENT COURSE and DIFFERENTIAL DIAGNOSIS/MDM: Vitals: Vitals: 09/12/24 1948 09/12/24 2137 09/12/24 2210 BP: 124/81 113/62 BP Location: Left arm Pulse: (!) 111 102 Resp: 16 18 Temp: 38 ?C (100.4 ?F) TempSrc: Temporal SpO2: 99% 100% Weight: 102 kg (225 lb) Medications vancomycin in NS (Vancocin) IVPB 2,000 mg (2,000 mg IntraVENous New Bag 09/12/24 2240) sodium chloride 0.9 % bolus 1,000 mL (0 mL IntraVENous Stopped 09/12/24 2159) piperacillin-tazobac daley (Zosyn) 4,500 mg in sodium chloride 0.9 % 100 mL IVPB Mini-Bag Plus (0 mg IntraVENou (more content not included)... Normal [facility] HIGH SENSITIVITY TROPONIN, S ERIAL BASELINEon 09-12-2024 TROPONIN HIGH SENSITIVITY BASELINE 4 ng/L Normal <=35 [facility] Comment on above: Performed By: #### L [id number], [id number], [id number] ####Gambling Broker: BRIAN NUNEZ ([phone])[facility] ([facility])[address] [place] [address] LACTIC ACID WITH REFLEXon Lactate [Moles/Vol] 2.0 mmol/L Normal 0.5-2.2 [facility] Comment on above: Performed By: #### L [id number] ####Gambling Broker: BRIAN NUNEZ ([id number])[facility] ([facility])[address] Laboratory - Chemistry and C hemistry - challengeon 09-12-2024 Lactate [Moles/Vol] 2 mmol/L 0.5 - 2. 2 mmol/L [facility] NT PRO BNPon 09-12-2024 Natriuretic peptide B (Bld) [Mass/Vol] 589 pg/mL High <125 [facility] Comment on above: Performed By: #### L [id number], [id number], [id number] ####Gambling Broker: BRIAN NUNEZ ([phone])[facility] ([facility])[address] [place] [address] Natriuretic peptide B [Mass/ Vol]on 09-12-2024 Interpretation and review of laboratory results Abnormal [facility] Natriuretic peptide B (Bld) [Mass/Vol] 589 pg/mL High NINF - 125 pg/mL [facility] No Panel Informationon 09-12 Interpretation and review of laboratory results Normal [facility] Troponin HS, Serial Baseline 4 ng/L NINF - 35 ng/L [facility] Interpretation and review of laboratory results Normal [facility] Progress Noteon 09-12-2024 Progress Note Culture reviewed. Awaiting sensitivity results. Patient was seen at [place] given IV antibiotics broad-spectrum coverage and transferred to [facility] for further management Normal [facility] XR Chest Single viewon 09-12 1. No acute findings. Report Dictated on Electronically Signed By: Elias Hutson MD Electronically Signed Date/Time: 09/12/2024 8:28 PM [facility] [employer] SYSTEM Patient Name: KEVAN LA : 1975 Exam Date/Time: 09/12/2024 20:17 Procedure: XR CHEST 1 VIEW Ordering Provider: KAUFFMAN JONATHAN Reason For Exam: DYSPNEA CHEST PORTABLE CLINICAL INDICATION: DYSPNEA TECHNIQUE: Portable chest x-ray(s). COMPARISON: None. FINDINGS: Cardiac and mediastinal silhouette within normal limits. Lungs show mild, subsegmental atelectasis or scarring projecting over the right costophrenic angle region. No significant vascular congestion. No focal consolidation or apparent pneumothorax. Bony thorax grossly unremarkable. [facility] Elias Hutson MD - 09/12/2024 [facility] Name: [facility]EVAN LA : 1975 [id number] Exam Date/Time: 09/12/2024 20:17 Procedure: XR CHEST 1 VIEW Ordering Provider: KAUFFMAN JONATHAN Reason For Exam: DYSPNEA CHEST PORTABLE CLINICAL INDICATION: DYSPNEA TECHNIQUE: Portable chest x-ray(s). COMPARISON: None. FINDINGS: Cardiac and mediastinal silhouette within normal limits. Lungs show mild, subsegmental atelectasis or scarring projecting over the right costophrenic angle region. No significant vascular congestion. No focal consolidation or apparent pneumothorax. Bony thorax grossly unremarkable. IMPRESSION: 1. No acute findings. Report Dictated on Electronically Signed By: Elias Hutson MD Electronically Signed Date/Time: 09/12/2024 8:28 PM EST [facility] Radiology Study observation (narrative) [facility] XR Chest Single viewOrdered By: Elias Hutson on 09-12-2024 [employer] Work Phone: ECG 12-LEADon 02-29-2024 ECG 12-LEAD Ventricular Rate 60 Atrial Rate 60 P-R Interval 146 QRS Duration 92 Q-T Interval 410 QTC Calculation(Bazett) 410 P [place] 55 R [place] 41 T [place] 55 QRS Count 10 Q Onset 212 P Onset 139 P Offset 195 T Offset 417 QTC [place] 410 Diagnosis Normal sinus rhythm Normal ECG When compared with ECG of 23-NOV-2023 11:14, No significant change was found Confirmed by Eric Mccall ([id number]) on 03/01/2024 4:34:58 PM Normal [facility] ECG 12 lead (Ancillary Perfo rmed)Ordered By: Beto Casas on 11-24-2023 Atrial Rate [address] [facility] Work Phone: [phone] P [place] [address] [facility] Work Phone: [phone] P Offset [address] [facility] Work Phone: [phone] P Onset [address] [facility] Work Phone: [phone] IN Interval [address] [facility] Work Phone: [phone] Q Onset [address] [facility] Work Phone: [phone] QRS Count [address] [facility] Work Phone: [phone] QRS Duration [address] [facility] Work Phone: [phone] QT Interval [address] [facility] Work Phone: [phone] QTC Calculation(Bazett) 394 ms [facility] Work Phone: [phone] QTC [place] [address] [facility] Work Phone: [phone] R [place] [address] [facility] Work Phone: [phone] T [place] [address] [facility] Work Phone: [phone] T Offset [address] [facility] Work Phone: [phone] Ventricular Rate 58 [facility]PM [facility] Phone: [phone] [facility] Work Phone: [phone] ECG 12 lead (Ancillary Perfo rmed)on 11-24-2023 Sinus bradycardia Otherwise normal ECG No previous ECGs available Confirmed by Beto Casas ([id number]) on 11/24/2023 1:09:15 PM Beto William MD - 11/24/2023 Sinus bradycardia Otherwise normal ECG No previous ECGs available Confirmed by Beto Casas ([id number]) on 11/24/2023 1:09:[address] [facility] Work Phone: QUANTIFERON - PLUS RHODES TUBE on 04-10-2023 Gamma interferon background IA Qn (Bld) 0.02 IU/mL [facility] QUANTIFERON - PLUS GREEN TUB Yunior 04-10-2023 TB1 Antigen Result 0.05 IU/mL [facility] QUANTIFERON - PLUS PURPLE TU BEon 04-10-2023 M. tuberculosis stim IFN-g by CD4+ CD8+ T-cells corrected for background Qn (Bld) 0.01 IU/mL [facility] M. tuberculosis stim IFN-g by CD4+ T-cells corrected for background Qn (Bld) 0.03 [IU]/mL IU/mL [facility] M. tuberculosis tuberculin stim IFN-g Ql (Bld) Negative Negative [facility] Mitogen Result IU/mL [facility] Mitogen stimulated gamma interferon corrected for background Qn (Bld) IU/mL [facility] Interferon gamma release is measured for specimens from each of the four collection tubes. A qualitative result (Negative, Positive, or Indeterminate) is based on interpretation of the four values, NIL, MITOGEN minus NIL (MITOGEN-NIL), TB1 minus NIL (TB1-NIL), and TB2 minus NIL(TB2-NIL). The NIL value represents nonspecific reactivity produced by the patient specimen. The MITOGEN-NIL value serves as the positive control for the patient specimen, demonstrating successful lymphocyte activity. The TB1-NIL tube specifically detects CD4+ lymphocyte reactivity, specifically stimulated by the TB1 antigens. The TB2-NIL tube detects both CD4+ and CD8+ lymphocyte reactivity, stimulated by TB2 antigens. An overall Negative result does not completely rule out TB infection. A false-positive result in the absence of other clinical evidence of TB infection is not uncommon and may be due to infection from some NTM (M. kansasii, M. szulgai,or M. marinum). [facility] QUANTIFERON - PLUS YELLOW TU BEon 04-10-2023 TB2 Antigen Value 0.03 IU/mL [facility] Bilirubin.indirect [Mass/Vol ]on 04-08-2023 Bilirubin.conjugated [Mass/Vol] 0.0 mg/dL 0.0 - 0.3 mg/dL [facility] Interpretation and review of laboratory results Normal [facility] CBC W Auto Differential pane l (Bld)Ordered By: Smitha Mcknight on 04-08-2023 Basophils (Bld) [#/Vol] 0.1 10*3/uL 0.0 - 0.2 10*3/uL [facility] Basophils/100 WBC (Bld) 0.7 % 0.0 - 2.0 % [facility] Eosinophils (Bld) [#/Vol] 0.3 10*3/uL 0.0 - 0.5 10*3/uL [facility] Eosinophils/100 WBC (Bld) 2.6 % 1.0 - 6.0 % [facility] [employer] Erythrocyte distribution width (RBC) [Ratio] 15.0 % High 11.5 - 14.5 % [facility] [employer] Hematocrit (Bld) [Volume fraction] 38.9 % Low 40.0 - 52.0 % [facility] Hemoglobin (Bld) [Mass/Vol] 12.8 g/dL Low 13.0 - 18.0 g/dL [facility] [employer] Immature granulocytes (Bld) [#/Vol] 0.0 10*3/uL NINF - 0.0 10*3/uL [facility] [employer] Immature granulocytes/100 WBC (Bld) 0.3 % High NINF - 0.0 % [facility] Interpretation and review of laboratory results Abnormal [facility] Lymphocytes (Bld) [#/Vol] 3.0 10*3/uL 1.0 - 4.3 10*3/uL [facility] Lymphocytes/100 WBC (Bld) 23.6 % 20.0 - 40.0 % [facility] MCH (RBC) [Entitic mass] 28.7 pg 26. 0 - 34.0 pg [facility] MCHC (RBC) [Mass/Vol] 32.9 % 32.0 - 36.0 % [facility] MCV (RBC) [Entitic vol] 87.2 fL 80.0 - 98.0 fL [facility] [employer] Monocytes (Bld) [#/Vol] 1.2 10*3/uL High 0.0 - 0.8 10*3/uL [facility] Monocytes/100 WBC (Bld) 9.1 % 2.0 - 10.0 % [facility] [employer] Neutrophils (Bld) [#/Vol] 8.1 10*3/uL High 1.8 - 7.0 10*3/uL [facility] Neutrophils/100 WBC (Bld) 63.7 % 40.0 - 80.0 % [facility] Platelet mean volume (Bld) [Entitic vol] 8.7 fL 7.4 - 12.4 fL [facility] Comment on above: MPV is a calculated measurement using platelet volume ratio Platelets (Bld) [#/Vol] 415 10*3/uL 140 - 440 10*3/uL [facility] RBC (Bld) [#/Vol] 4.46 10*6/uL 4.40 - 5.9 0 10*6/uL [facility] WBC (Bld) [#/Vol] 12.7 10*3/uL High 3.6 - 10.7 10*3/uL [facility] [facility] Comprehensive metabolic 1998 panelon 04-08-2023 Albumin [Mass/Vol] 3.9 g/dL 3.5 - 5.0 g/dL [facility] ALP [Catalytic activity/Vol] 95 U/L 38 - 126 U/L [facility] ALT [Catalytic activity/Vol] 16 U/L 0 - 49 U/L [facility] Anion gap [Moles/Vol] 5 mmol/L 3 - 13 mmol/L [facility] AST [Catalytic activity/Vol] 24 U/L 15 - 46 U/L [facility] Bilirubin [Mass/Vol] 0.3 mg/dL 0.2 - 1 .3 mg/dL [facility] Calcium [Mass/Vol] 8.8 mg/dL 8.4 - 10. 4 mg/dL [facility] Chloride [Moles/Vol] 108 mmol/L High 98 - 10 7 mmol/L [facility] CO2 [Moles/Vol] 28 mmol/L 22 - 30 mmol/L [facility] Creatinine [Mass/Vol] 1.20 mg/dL 0.66 - 1.25 mg/dL [facility] GFR/1.73 sq M.predicted MDRD (S/P/Bld) [Vol rate/Area] 74.1 mL/min/{1.73_m2} - PINF [facility] Comment on above: Calculation based on the Chronic Kidney Disease Epidemiology Collaboration (CKD-EPI) equation refit without adjustment for race Glucose [Mass/Vol] 110 mg/dL High 70 - 100 mg/dL [facility] Interpretation and review of laboratory results Abnormal [facility] Potassium [Moles/Vol] 4.3 mmol/L 3.5 - 5.1 mmol/L [facility] Protein [Mass/Vol] 8.3 g/dL High 6.3 - 8.2 g/dL [facility] Sodium [Moles/Vol] 140 mmol/L 135 - 145 mmol/L [facility] Urea nitrogen [Mass/Vol] 14 mg/dL 9 - 20 mg/d L [facility] [employer] No Panel Informationon 04-08 [facility] Vital Signs Date Time Vital Sign Value Performing Clinician Facility 12-24-2024 09:31-0400 Body temperature 98.01 [degF] Manoharn Martina DO Work Phone: [facility] 12-24-2024 09:31-0400 Diastolic blood pressure 45 mm[Hg] Mejgon Martina DO Work Phone: [facility] 12-24-2024 09:31-0400 Heart rate 83 /min Manoharn Martina DO Work Phone: [facility] 12-24-2024 09:31-0400 Respiratory rate 15 /min Taneshagon Martina DO Work Phone: [facility] 12-24-2024 09:31-0400 SaO2% (BldA) [Mass fraction] 97 % jgon Martina DO Work Phone: [facility] 12-24-2024 09:31-0400 Systolic blood pressure 95 mm[Hg] Taneshagon Martina DO Work Phone: [facility] 12-23-2024 19:23-0400 Body height 200.7 cm Mejgon Martina DO Work Phone: [facility] 12-23-2024 19:23-0400 Body mass index (BMI) [Ratio] 22.34 kg/m2 Mejgon Martina DO Work Phone: [facility] 12-23-2024 19:23-0400 Body weight 90 kg Mejan Martina DO Work Phone: [facility] [email or web address] 12-20-2024 10:55-0400 Body height 196.7 cm Sreedhar Jiang MD Work Phone: [facility] 12-20-2024 10:55-0400 Body mass index (BMI) [Ratio] 23.31 kg/m2 Sreedhar Jiang MD Work Phone: [facility] 12-20-2024 10:55-0400 Body temperature 97.9 [degF] Sreedhar Jiang MD Work Phone: [facility] 12-20-2024 10:55-0400 Body weight 90.2 kg Sreedhar Jiang MD Work Phone: [facility] 12-20-2024 10:55-0400 Diastolic blood pressure 57 mm[Hg] Sreedhar Jiang MD Work Phone: [facility] 12-20-2024 10:55-0400 Heart rate 74 /min Sreedhar Jiang MD Work Phone: [facility] 12-20-2024 10:55-0400 Respiratory rate 16 /min Sreedhar Jiang MD Work Phone: [facility] 12-20-2024 10:55-0400 SaO2% (BldA) [Mass fraction] 96 % Sreedhar Jiang MD Work Phone: [facility] 12-20-2024 10:55-0400 Systolic blood pressure 99 mm[Hg] Sreedhar Jiang MD Work Phone: [facility] 12-19-2024 07:29-0400 Body temperature 97 [degF] Mine Nunez MD Work Phone: [facility] 12-19-2024 07:29-0400 Diastolic blood pressure 62 mm[Hg] Mine Nunez MD Work Phone: [facility] 12-19-2024 07:29-0400 Heart rate 83 /min Mine Nunez MD Work Phone: [facility] 12-19-2024 07:29-0400 Respiratory rate 16 /min Mine Nunez MD Work Phone: [facility] 12-19-2024 07:29-0400 SaO2% (BldA) [Mass fraction] 96 % Mine Nunez MD Work Phone: [facility] 12-19-2024 07:29-0400 Systolic blood pressure 102 mm[Hg] Mine Nunez MD Work Phone: [facility] 12-07-2024 16:58-0400 Body height 200.6 cm Mine Nunez MD Work Phone: [facility] 12-07-2024 16:58-0400 Body mass index (BMI) [Ratio] 22.22 kg/m2 Mine Nunez MD Work Phone: [facility] 12-07-2024 16:58-0400 Body weight 89.4 kg Mine Nunez MD Work Phone: [facility] 12-07-2024 13:22-0400 Body temperature 98.71 [degF] Fer Hollins MD Work Phone: [facility] [email or web address] 12-07-2024 13:22-0400 Diastolic blood pressure 57 mm[Hg] Fer Hollins MD Work Phone: [email or web address] 12-07-2024 13:22-0400 Heart rate 60 /min Fer Hollins MD Work Phone: [email or web address] 12-07-2024 13:22-0400 Respiratory rate 16 /min Fer Hollins MD Work Phone: [email or web address] 12-07-2024 13:22-0400 SaO2% (BldA) [Mass fraction] 100 % Fer Hollins MD Work Phone: [email or web address] 12-07-2024 13:22-0400 Systolic blood pressure 89 mm[Hg] Fer Hollins MD Work Phone: [email or web address] 12-06-2024 11:09-0400 Body height 200.7 cm Fer Hollins MD Work Phone: [facility] 12-06-2024 11:09-0400 Body mass index (BMI) [Ratio] 22.19 kg/m2 Fer Hollins MD Work Phone: [facility] 12-06-2024 11:09-0400 Body weight 89.36 kg Fer Hollins MD Work Phone: [facility] 11-27-2024 13:43-0400 Body temperature 97.7 [degF] Baldomero Powell MD Work Phone: [facility] 11-27-2024 13:43-0400 Diastolic blood pressure 61 mm[Hg] Baldomero Powell MD Work Phone: [facility] 11-27-2024 13:43-0400 Heart rate 74 /min Baldomero Powell MD Work Phone: [facility] 11-27-2024 13:43-0400 SaO2% (BldA) [Mass fraction] 98 % Baldomero Powell MD Work Phone: [facility] 11-27-2024 13:43-0400 Systolic blood pressure 105 mm[Hg] Baldomero Powell MD Work Phone: [facility] 11-27-2024 05:19-0400 Respiratory rate 17 /min Baldomero Powell MD Work Phone: [facility] 11-13-2024 17:26-0500 Body temperature 37 Baldomero Powell MD Work Phone: [facility] 11-11-2024 09:42-0500 Body mass index (BMI) [Ratio] 25.93 kg/m2 Baldomero Powell MD Work Phone: [facility] 11-11-2024 09:42-0500 Body weight 104.33 kg Baldomero Powell MD Work Phone: [facility] 11-10-2024 04:05-0500 Body height 200.6 cm Baldomero Powell MD Work Phone: [facility] 11-09-2024 17:02-0500 Body temperature 98.01 [degF] Fer Kennedy MD Work Phone: [employer] 11-09-2024 17:02-0500 Diastolic blood pressure 55 mm[Hg] Fer Kennedy MD Work Phone: [employer] 11-09-2024 17:02-0500 Heart rate 63 /min Fer Kennedy MD Work Phone: [employer] 11-09-2024 17:02-0500 Respiratory rate 16 /min Fer Kennedy MD Work Phone: [employer] 11-09-2024 17:02-0500 SaO2% (BldA) [Mass fraction] 97 % Fer Kennedy MD Work Phone: [facility] 11-09-2024 17:02-0500 Systolic blood pressure 99 mm[Hg] Fer Kennedy MD Work Phone: [employer] 11-09-2024 08:12-0500 Body height 200.7 cm Fer Kennedy MD Work Phone: [employer] 11-09-2024 08:12-0500 Body mass index (BMI) [Ratio] 21.52 kg/m2 Fer Kennedy MD Work Phone: [employer] 11-09-2024 08:12-0500 Body weight 86.64 kg Fer Kennedy MD Work Phone: [employer] Comment on above: pt states last time he was weighed at [facility] this was his current weight 10-23-2024 03:44-0500 Body temperature 98.2 [degF] Kishore Gutierrez MD Work Phone: [facility] 10-23-2024 03:44-0500 Diastolic blood pressure 54 mm[Hg] Kishore Gutierrez MD Work Phone: [facility] 10-23-2024 03:44-0500 Heart rate 74 /min Kishore Gutierrez MD Work Phone: [facility] 10-23-2024 03:44-0500 Respiratory rate 17 /min Kishore Gutierrez MD Work Phone: [facility] 10-23-2024 03:44-0500 SaO2% (BldA) [Mass fraction] 98 % Kishore Gutierrez MD Work Phone: [facility] 10-23-2024 03:44-0500 Systolic blood pressure 103 mm[Hg] Kishore Gutierrez MD Work Phone: [facility] 10-13-2024 12:12-0500 Body temperature 37 Kishore Gutierrez MD Work Phone: [facility] 10-13-2024 12:08-0500 Body temperature 37 Kishore Gutierrez MD Work Phone: [facility] 10-13-2024 12:08-0500 SaO2% (BldA) [Mass fraction] 95 % Kishore Gutierrez MD Work Phone: [facility] 10-11-2024 10:15-0500 Body height 200.7 cm Kishore Gutierrez MD Work Phone: [facility] 10-11-2024 10:15-0500 Body mass index (BMI) [Ratio] 25.01 kg/m2 Kishore Gutierrez MD Work Phone: [facility] 10-11-2024 10:15-0500 Body weight 100.7 kg Kishore Gutierrez MD Work Phone: [facility] 10-10-2024 16:24-0500 Body temperature 37 Kishore Gutierrez MD Work Phone: [facility] 09-17-2024 08:06-0500 Body temperature 97 [degF] Ankit Nino MD Work Phone: [facility] 09-17-2024 08:06-0500 Diastolic blood pressure 56 mm[Hg] Ankit Nino MD Work Phone: [facility] 09-17-2024 08:06-0500 Heart rate 66 /min Ankit Nino MD Work Phone: [facility] 09-17-2024 08:06-0500 Respiratory rate 17 /min Ankit Nino MD Work Phone: [facility] 09-17-2024 08:06-0500 SaO2% (BldA) [Mass fraction] 96 % Ankit Nino MD Work Phone: [facility] 09-17-2024 08:06-0500 Systolic blood pressure 103 mm[Hg] Ankit Nino MD Work Phone: [facility] 09-13-2024 23:47-0500 Body temperature 37 Ankit Nino MD Work Phone: [facility] 09-13-2024 21:41-0500 Body height 200.7 cm Ankit Nino MD Work Phone: [facility] 09-13-2024 21:41-0500 Body mass index (BMI) [Ratio] 25.02 kg/m2 Ankit Nino MD Work Phone: [facility] 09-13-2024 21:41-0500 Body weight 100.8 kg Ankit Nino MD Work Phone: [facility] 09-13-2024 19:32-0500 Body temperature 100.6 [degF] Xiomara Kauffman MD Work Phone: [email or web address] 09-13-2024 19:32-0500 Diastolic blood pressure 63 mm[Hg] Xiomara Kauffman MD Work Phone: [email or web address] 09-13-2024 19:32-0500 Heart rate 90 /min Xiomara Kauffman MD Work Phone: [facility] 09-13-2024 19:32-0500 Respiratory rate 16 /min Xiomara Kauffman MD Work Phone: [employer] 09-13-2024 19:32-0500 SaO2% (BldA) [Mass fraction] 94 % Xiomara Kauffman MD Work Phone: [employer] 09-13-2024 19:32-0500 Systolic blood pressure 95 mm[Hg] Xiomara Kauffman MD Work Phone: [employer] 09-13-2024 11:29-0500 Body height 200.7 cm Xiomara Kauffman MD Work Phone: [employer] 09-13-2024 11:29-0500 Body mass index (BMI) [Ratio] 25.91 kg/m2 Xiomara Kauffman MD Work Phone: [employer] 09-13-2024 11:29-0500 Body weight 104.33 kg Xiomara Kauffman MD Work Phone: [email or web address] Encounters Encounter Date Encounter Type Care Provider Facility Start: 02-18-2025 ambulatory Julio Harris [facility] Start: 01-13-2025 End: 01-13-2025 ambulatory NO ASSIGNED PCP GENERIC PROVIDER [facility] Start: 01-13-2025 End: 01-13-2025 Subsequent hospital visit by physician Elizabeth [facility] Comment on above: Encounter for antine oplastic radiation therapy; 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, including hip Start: 01-10-2025 End: 01-10-2025 ambulatory NO ASSIGNED PCP GENERIC PROVIDER [facility] Start: 01-10-2025 End: 01-10-2025 Subsequent hospital visit by physician Elizabeth [facility] Comment on above: Arrived Encounter for antine oplastic radiation therapy; 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, including hip Start: 01-09-2025 End: 01-09-2025 ambulatory NO ASSIGNED PCP GENERIC PROVIDER [facility] Start: 01-09-2025 End: 01-09-2025 Subsequent hospital visit by physician Blaise Quijano [facility] Comment on above: Arrived Encounter for antine oplastic radiation therapy; 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, including hip Start: 01-08-2025 End: 01-08-2025 ambulatory NO ASSIGNED PCP GENERIC PROVIDER [facility] Start: 01-08-2025 End: 01-08-2025 Subsequent hospital visit by physician Elizabeth [facility] Comment on above: Arrived Encounter for antine oplastic radiation therapy; 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, including hip Start: 01-08-2025 End: 01-08-2025 ambulatory NO ASSIGNED PCP GENERIC PROVIDER [facility] Start: 01-08-2025 End: 01-08-2025 Subsequent hospital visit by physician Leslee Krueger Onc Tx Plan [facility] Comment on above: Arrived Start: 01-07-2025 End: 01-07-2025 ambulatory NO ASSIGNED PCP GENERIC PROVIDER [facility] Start: 01-07-2025 End: 01-07-2025 Subsequent hospital visit by physician Elizabeth [facility] Comment on above: Arrived Start: 01-06-2025 ambulatory NO ASSIGNED PC P GENERIC PROVIDER [facility] Start: 01-03-2025 End: 01-03-2025 ambulatory NO ASSIGNED PCP GENERIC PROVIDER [facility] Start: 01-03-2025 End: 01-03-2025 Subsequent hospital visit by physician Leslee Krueger Onc Tx Plan [facility] Comment on above: Arrived Start: 01-02-2025 End: 01-02-2025 Subsequent hospital visit by physician Leslee Wright Ct Simulator [facility] Comment on above: 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, including hip (Primary Dx) Start: 01-02-2025 End: 01-02-2025 ambulatory NO ASSIGNED PCP GENERIC PROVIDER [facility] Start: 01-02-2025 End: 01-02-2025 ambulatory PHIL QUIJANO [facility] Start: 01-02-2025 End: 01-02-2025 Subsequent hospital visit by physician Evans [employer] [facility] [employer] Comment on above: 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, including hip Start: 12-24-2024 End: 02-17-2025 Evaluation and management of inpatient WILLOW MCINTOSHA [facility] Start: 12-23-2024 Evaluation and manag ement of inpatient CURTIS MCFARLANE [facility] Start: 12-22-2024 End: 12-24-2024 Evaluation and management of inpatient Levi Mack DO Work Phone: [facility] 7[facility] Comment on above: Sepsis, due to unspe cified organism, unspecified whether acute organ dysfunction present (HCC) (Primary Dx); Abscess of left hip Start: 12-20-2024 End: 12-20-2024 ambulatory SREEDHAR Yousif APOLINAR [facility] Start: 12-20-2024 End: 12-20-[address] [facility] Start: 12-20-2024 End: 12-20-2024 Office outpatient visit 40 minutes Sreedhar Jiang MD Work Phone: [facility] Comment on above: Squamous cell carcin pasha of left hip (Primary Dx); Hypercalcemia of malignancy Start: 12-20-2024 End: 12-20-[address] [facility] Start: 12-12-2024 End: 12-12-2024 Evaluation and management of inpatient LYNETTE [facility] Start: 12-07-2024 End: 12-19-2024 Evaluation and management of inpatient Mine Nunez MD Work Phone: [facility] 5 Start: 12-06-2024 End: 12-07-2024 Evaluation and management of inpatient Fer Hollins MD Work Phone: [facility] EMERGENCY DEPT Comment on above: Abscess of left hip (Primary Dx) Start: 12-04-2024 End: 12-04-2024 ambulatory Julio SAMANIEGO [facility] Work Phone: Start: 12-04-2024 End: 12-04-2024 Departed Referred Julio [facility] [address] Start: 12-04-2024 Registered Referred Julio Nolasco -[facility] [address] Start: 12-04-2024 End: 12-04-2024 ambulatory Julio SAMANIEGO Facility:[facility] Start: 11-29-2024 End: 11-29-2024 Office outpatient visit 40 minutes Sreedhar Jiang MD Work Phone: [facility] Comment on above: 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); Squamous cell carcinoma of left hip; Hypercalcemia Start: 11-29-2024 End: 11-29-2024 ambulatory SREEDHAR JIANG [facility] Start: 11-10-2024 End: 11-27-2024 Evaluation and management of inpatient Baldomero Powell MD Work Phone: [facility] Start: 11-08-2024 End: 11-10-2024 Evaluation and management of inpatient Fer Kennedy MD Work Phone: [facility] Medical Surgical Unit MSU H5 Comment on above: Abscess (Primary Dx) Start: 10-24-2024 End: 10-24-2024 ambulatory Julio SAMANIEGO [facility] Work Phone: Start: 10-24-2024 End: 10-24-2024 Departed Referred Julio Nolasco -[facility] - [address] Start: 10-24-2024 End: 10-24-2024 ambulatory Julio SAMANIEGO Facility:[facility] Start: 10-10-2024 End: 10-23-2024 Evaluation and management of inpatient Kishore Gutierrez MD Work Phone: [facility] 20 Start: 09-30-2024 End: 09-30-2024 ambulatory MARLON [facility]ulatory Start: 09-30-2024 End: 09-30-2024 Office outpatient visit 25 minutes Marlon Hughes MD Work Phone: [facility] Comment on above: Clinical trial parti cipant (Primary Dx) Start: 09-30-2024 End: 09-30-2024 Patient encounter procedure Marlon Hughes MD Work Phone: [facility] Work Phone: Start: 09-24-2024 End: 09-24-2024 Office outpatient visit 10 minutes Ankit Nino MD Work Phone: [facility] Comment on above: Counseling on health promotion and disease prevention (Primary Dx); Hidradenitis suppurativa Start: 09-13-2024 End: 09-17-2024 Evaluation and management of inpatient Ankit Nino MD Work Phone: [facility] 50 Comment on above: Wound infection (Renee francine Dx); Nausea; Constipation, unspecified constipation type; Viral infection; Smoking Start: 09-12-2024 End: 09-13-2024 Emergency department patient visit Xiomara Kauffman MD Work Phone: [facility] Comment on above: Buttock wound, left, initial encounter (Primary Dx); Sepsis, due to unspecified organism, unspecified whether acute organ dysfunction present (HCC); Hidradenitis suppurativa Start: 08-20-2024 End: 08-20-2024 [facility]ulatory [facility] Start: 08-20-2024 End: 08-20-2024 Office outpatient visit 25 minutes Marlon Hughes MD Work Phone: [facility] Comment on above: Clinical trial parti cipant (Primary Dx) Start: 08-20-2024 End: 08-20-2024 Patient encounter procedure Marlon Hughes MD Work Phone: [facility] Work Phone: Start: 07-08-2024 End: 07-08-2024 ambulatory [facility] Start: 05-27-2024 End: 05-27-2024 ambulatory [facility] Ambulatory Start: 04-12-2024 End: 04-12-2024 ambulatory [facility]ulatory Start: 04-04-2024 End: 04-04-2024 ambulatory [facility] Start: 04-04-2024 End: 04-04-2024 Office outpatient visit 15 minutes Kimber Last MD Work Phone: [facility] Comment on above: Clinical trial parti cipant (Primary Dx) Start: 04-04-2024 End: 04-04-2024 Patient encounter procedure Kimber Last MD Work Phone: [facility] Work Phone: Start: 02-29-2024 End: 02-29-2024 Subsequent hospital visit by physician Leslee [id number] Cr Nonv1 Holter/Ecg Resource [facility] Comment on above: Clinical trial parti cipant Start: 02-29-2024 End: 02-29-2024 ambulatory [facility] Ambulatory Start: 02-29-2024 End: 02-29-2024 Office outpatient visit 25 minutes Kimber Last MD Work Phone: [facility] Comment on above: Clinical trial parti cipant (Primary Dx) Start: 02-29-2024 End: 02-29-2024 Patient encounter procedure Kimber Last MD Work Phone: [facility] Work Phone: Start: 02-09-2024 End: 02-09-2024 ambulatory [facility]ulatory Start: 02-09-2024 End: 02-09-2024 Office outpatient visit 40 minutes Kimber Last MD Work Phone: [facility] Comment on above: Clinical trial parti cipant (Primary Dx) Start: 02-09-2024 End: 02-09-2024 Patient encounter procedure Kimber Last MD Work Phone: [facility] Work Phone: Start: 01-16-2024 End: 01-16-2024 ambulatory [facility]ulatory Start: 01-16-2024 End: 01-16-2024 Office outpatient visit 40 minutes Kimber Last MD Work Phone: [facility] Comment on above: Clinical trial parti cipant (Primary Dx) Start: 01-16-2024 End: 01-16-2024 Patient encounter procedure Kimber Last MD Work Phone: [facility] Work Phone: Start: 12-29-2023 End: 12-29-2023 Office outpatient visit 40 minutes Kimber Last MD Work Phone: [facility] Comment on above: Clinical trial parti cipant (Primary Dx) Start: 12-29-2023 End: 12-29-2023 Patient encounter procedure Kimber Last MD Work Phone: [facility] Work Phone: Start: 12-29-2023 End: 12-29-2023 ambulatory [facility] Start: 12-11-2023 End: 12-11-2023 ambulatory [facility] Start: 12-11-2023 End: 12-11-2023 Office outpatient visit 40 minutes Kimber Last MD Work Phone: [facility] Comment on above: Clinical trial parti cipant (Primary Dx) Start: 12-11-2023 End: 12-11-2023 Patient encounter procedure Kimber Last MD Work Phone: [facility] Work Phone: Start: 11-23-2023 End: 11-23-2023 Subsequent hospital visit by physician Leslee [id number] Cr Nonv1 Holter/Ecg Resource [facility] Comment on above: Clinical trial parti cipant Start: 11-23-2023 End: 11-23-2023 Office outpatient new 60 minutes Kimber Last MD Work Phone: [facility] Comment on above: Clinical trial parti cipant (Primary Dx) Start: 11-23-2023 End: 11-23-2023 Patient encounter procedure Kimber Last MD Work Phone: [facility] Work Phone: Start: 04-08-2023 Transcribe Orders Vivian Keen MD Work Phone: [facility] Comment on above: Hidradenitis suppura tiva (Primary Dx) Procedures Date Procedure Procedure Detail Performing Clinician Start: 01-13-2025 RAD ONC MSQ TREATMEN T SUMMARY Jose Juan Escobar MD Work Phone: Start: 01-10-2025 RAD ONC MSQ TREATMEN T SUMMARY Jose Juan Escobar MD Work Phone: Start: 01-09-2025 RAD ONC MSQ TREATMEN T SUMMARY Jose Juan Escobar MD Work Phone: Start: 01-08-2025 RAD ONC MSQ TREATMEN T SUMMARY Jose Juan Escobar MD Work Phone: Start: 01-02-[address] SIM IMAGES ONLY Phil Quijano MD Work Phone: Start: 12-24-2024 Blood count complete auto&auto difrntl wbc Clarita Hay DO Work Phone: Start: 12-24-2024 Basic metabolic pane l calcium total Kong Dia MD Work Phone: Start: 12-22-2024 Urinalysis complete panel - Urine Ronna Leon [employer] - [employer]IOR [employer] ENGINEER Work Phone: Start: 12-22-2024 Urnls dip stick/tabl et rgnt auto w/o microscopy Ronna Leon [employer] - S[employer]IOR DAT[employer]ASE ENGINEER Work Phone: Start: 12-22-2024 Culture bacterial an y source anaerobic iso&id Ronna Leon [employer] - S[employer]IOR DAT[employer]ASE ENGINEER Work Phone: Start: 12-22-2024 Radex hip unilateral with pelvis 2-3 views Ronna Leon [employer] - S[employer]IOR DAT[employer]ASE ENGINEER Work Phone: Start: 12-22-2024 Radiologic exam ches t single view Ronna Leon [employer] - S[employer]IOR DAT[employer]ASE ENGINEER Work Phone: Start: 12-22-2024 Bacteria identified in Blood by Culture Ronna Leon [employer] - SENIOR DAT[employer]ASE ENGINEER Work Phone: Start: 12-22-2024 Comprehensive metabo lic panel Ronna Leon [employer] - SENIOR DAT[employer]ASE ENGINEER Work Phone: Start: 12-22-2024 Manual Differential panel - Blood Ronna Leon [employer] - SENIOR DAT[employer]ASE ENGINEER Work Phone: Start: 12-19-2024 Renal function panel Sheeba Gupta MD Work Phone: Start: 12-18-2024 Blood count complete auto&auto difrntl wbc Dara You DO Work Phone: Start: 12-17-2024 Renal function panel Sheeba Gupta MD Work Phone: Start: 12-16-2024 SCREWHEAD POLISHER MODIFIED BARIUM SWALLOW EVALUATION Fer Gupta MD Work Phone: Start: 12-16-2024 Radiologic exam swal low function contrast study Fer Gupta MD Work Phone: Start: 12-16-2024 Blood count complete auto&auto difrntl wbc Dara You DO Work Phone: Start: 12-15-2024 End: 12-15-2024 Comprehensive metabolic panel Paty Solis MD Work Phone: Start: 12-14-2024 Blood count complete auto&auto difrntl wbc Dara You DO Work Phone: Start: 12-13-2024 Renal function panel Nuha Love MD Work Phone: Start: 12-12-2024 Ecg routine ecg w/le ast 12 lds trcg only w/o i&r Lynette Segovia FLYER MAKER-SENIOR DATABASE ENGINEER Work Phone: Start: 12-12-2024 Mri lower extrem oth /thn jt w/o & w/contr matr Hank Lynne MD Work Phone: Start: 12-12-2024 PULSE OXIMETRY, CONTINUOUS Ganesh Cade MD Work Phone: Start: 12-12-2024 Assay of phosphorus inorganic Ethan Love MD Work Phone: Start: 12-11-2024 Renal function panel Nuha Love MD Work Phone: Start: 12-10-2024 Mri lower extrem oth /thn jt w/o contr matrl Ethan Love MD Work Phone: Start: 12-10-2024 Drug screen quantita tive vancomycin Jazlyn Macias PharmD Work Phone: Start: 12-10-2024 Renal function panel Nuha Love MD Work Phone: Start: 12-09-2024 Blood typing serolog ic rh (d) Ethan Love MD Work Phone: Start: 12-09-2024 Renal function panel Nuha Love MD Work Phone: Start: 12-08-2024 Comprehensive metabo lic panel Dara You DO Work Phone: Start: 12-08-2024 Drug screen quantita tive vancomycin Latricia Garcia MD Work Phone: Start: 12-07-2024 End: 12-07-2024 Culture bacterial blood aerobic w/id isolates Dara You DO Work Phone: Start: 12-07-2024 C-reactive protein Iveth You DO Work Phone: Start: 12-07-2024 End: 12-07-2024 Comprehensive metabolic panel Dara You DO Work Phone: Start: 12-07-2024 Comprehensive metabo lic panel Jaryo Ashby DO Work Phone: Start: 12-06-2024 Bacteria identified in Blood by Culture Latricia Schroeder DO Work Phone: Start: 12-06-2024 Ct pelvis w/contrast material Latricia Schroeder DO Work Phone: Start: 12-06-2024 Cul bact xcpt urine blood/stool aerobic isol Latricia Schroeder DO Work Phone: Start: 12-06-2024 Urinalysis complete panel - Urine Latricia Schroeder DO Work Phone: Start: 12-06-2024 Urnls dip stick/tabl et rgnt auto w/o microscopy Latricia Schroeder DO Work Phone: Start: 12-06-2024 Bacteria identified in Blood by Culture Latricia Schroeder DO Work Phone: Start: 12-06-2024 C-reactive protein Lady Schroeder DO Work Phone: Start: 12-06-2024 Comprehensive metabo lic panel Latricia Schroeder DO Work Phone: Start: 12-06-2024 Ecg routine ecg w/le ast 12 lds trcg only w/o i&r Latricia Schroeder DO Work Phone: Start: 11-27-2024 Renal function panel Ne gabrielle Soares MD Work Phone: Start: 11-26-2024 Renal function panel Ev aman Turner MD Work Phone: Start: 11-25-2024 Renal function panel Ev aman Turner MD Work Phone: Start: 11-24-2024 Renal function panel Ev aman Turner MD Work Phone: Start: 11-23-2024 Renal function panel Ev aman Turner MD Work Phone: Start: 11-22-2024 End: 11-22-2024 Culture bacterial blood aerobic w/id isolates Isa Turner MD Work Phone: Start: 11-22-2024 Renal function panel Ev aman Turner MD Work Phone: Start: 11-21-2024 Cul bact xcpt urine blood/stool aerobic isol Gilbert Sylvester MD Work Phone: Start: 11-21-2024 Renal function panel Luciana Turner MD Work Phone: Start: 11-20-2024 End: 11-20-2024 Renal function panel Isa Turner MD Work Phone: Start: 11-20-2024 RBC shape Nom (Bld) Maurizio Turner MD Work Phone: Start: 11-19-2024 Ct thorax w/contrast material Isa Turner MD Work Phone: Start: 11-19-2024 Renal function panel Luciana Turner MD Work Phone: Start: 11-18-2024 Renal function panel Luciana Turner MD Work Phone: Start: 11-17-2024 Comprehensive metabo lic panel Isa Turner MD Work Phone: Start: 11-17-2024 Hepatic function panel Khris Raya MD Work Phone: Start: 11-16-2024 Comprehensive metabo lic panel Isa Turner MD Work Phone: Start: 11-16-2024 Hepatic function panel Khris Raya MD Work Phone: Start: 11-15-2024 Blood count complete auto&auto difrntl wbc Isa Turner MD Work Phone: Start: 11-15-2024 BIOPSY Brigitte maravilla MD Work Phone: Start: 11-15-2024 Level iv surg pathol ogy gross&microscopic exam Brigitte Coy MD Work Phone: Start: 11-15-2024 Assay of phosphorus inorganic Isa Turner MD Work Phone: Start: 11-14-2024 Volume measurement t imed collection each Isa Turner MD Work Phone: Start: 11-14-2024 Comprehensive metabo lic panel Noah Peña MD Work Phone: Start: 11-13-2024 End: 11-13-2024 Chloride bld Khris Raya MD Work Phone: Start: 11-13-2024 Blood typing serolog ic rh (d) Isa Turner MD Work Phone: Start: 11-13-2024 End: 11-13-2024 Assay of phosphorus inorganic Isa Turner MD Work Phone: Start: 11-13-2024 SLIDE REQUEST Khris askew MD Work Phone: Start: 11-13-2024 Comprehensive metabo lic panel Noah Peña MD Work Phone: Start: 11-13-2024 Drug screen quantita tive vancomycin Claudio Plunkett MD Work Phone: Start: 11-12-2024 BIOPSY Brigitte maravilla MD Work Phone: Start: 11-12-2024 Cul bact xcpt urine blood/stool aerobic isol Brigitte Coy MD Work Phone: Start: 11-12-2024 Level iv surg pathol ogy gross&microscopic exam Brigitte Coy MD Work Phone: Start: 11-12-2024 End: 11-12-2024 Comprehensive metabolic panel Noah Peña MD Work Phone: Start: 11-11-2024 Iadna hepatitis c qu ant & reverse veterinary medicine doctor Carlos Manuel Rader MD Work Phone: Start: 11-11-2024 Tb antigen response gamma interferon t-cell susp Carlos Manuel Rader MD Work Phone: Start: 11-11-2024 Comprehensive metabo lic panel Noah Peña MD Work Phone: Start: 11-11-2024 Drug screen quantita tive vancomycin Noah Peña MD Work Phone: Start: 11-11-2024 Iaad ia hepatitis b surface antigen Carlos Manuel Rader MD Work Phone: Start: 11-11-2024 MISCELLANEOUS LAB TEST Gilbert Sylvester MD Work Phone: Start: 11-11-2024 Assay of magnesium Lucianagh eric Turner MD Work Phone: Start: 11-10-2024 Assay of lactate Liliam Turner MD Work Phone: Start: 11-10-2024 PROTEIN ELECTROPHORE SIS, URINE Te Porras MD Work Phone: Start: 11-10-2024 End: 11-10-2024 Assay of gammaglobulin iga igd igg igm each Adelina Forte MD Work Phone: Start: 11-10-2024 Immunofixj electroph oresis serum Te Porras MD Work Phone: Start: 11-10-2024 PROTEIN ELECTROPHORE SIS + IMMUNOFIXATION, SERUM Te Porras MD Work Phone: Start: 11-10-2024 C-reactive protein Noah Peña MD Work Phone: Start: 11-10-2024 End: 11-10-2024 Comprehensive metabolic panel Noah Peña MD Work Phone: Start: 11-10-2024 Culture bacterial an y source anaerobic iso&id Noah Peña MD Work Phone: Start: 11-10-2024 Ecg routine ecg w/le ast 12 lds trcg only w/o i&r Noah Peña MD Work Phone: Start: 11-09-2024 Comprehensive metabo lic panel [employer] Work Phone: Start: 11-09-2024 Manual differential performed [Presence] in Blood [employer] Work Phone: Start: 11-08-2024 Hemoglobin glycosylated a1c [employer] Work Phone: Start: 11-08-2024 Ct pelvis w/contrast material Fer Kennedy MD Work Phone: Start: 11-08-2024 Urinalysis complete panel - Urine Juvenal Fierro MD Work Phone: Start: 11-08-2024 Urnls dip stick/tabl et rgnt auto w/o microscopy Juvenal Fierro MD Work Phone: Start: 11-08-2024 Bacteria identified in Blood by Culture Juvenal Fierro MD Work Phone: Start: 11-08-2024 Comprehensive metabo lic panel Juvenal Fierro MD Work Phone: Start: 10-23-2024 Basic metabolic pane l calcium total Delilah Almanza MD Work Phone: Start: 10-22-2024 Basic metabolic pane l calcium total Delilah Almanza MD Work Phone: Start: 10-21-2024 Drug screen quantita tive vancomycin Delilah Almanza MD Work Phone: Start: 10-21-2024 Dup-scan xtr veins c omplete bilateral study Frances Watts MD Work Phone: Start: 10-21-2024 Basic metabolic pane l calcium total Delilah Almanza MD Work Phone: Start: 10-20-2024 Insertion picc w/rs&i 5 yr/> Delilah Almanza MD Work Phone: Start: 10-20-2024 Basic metabolic pane l calcium total Delilah Almanza MD Work Phone: Start: 10-19-2024 Cul prsmptv pthgnc o rganism scrn w/colony estimj Delilah Almanza MD Work Phone: Start: 10-19-2024 Basic metabolic pane l calcium total Delilah Almanza MD Work Phone: Start: 10-19-2024 Comprehensive metabo lic panel Delilah Almanza MD Work Phone: Start: 10-19-2024 Drug screen quantita tive vancomycin Delilah Almanza MD Work Phone: Start: 10-18-2024 Comprehensive metabo lic panel Marvel Felix MD Work Phone: Start: 10-17-2024 Assay of phosphorus inorganic Delilah Almanza MD Work Phone: Start: 10-17-2024 Blood count complete auto&auto difrntl wbc Marvel Felix MD Work Phone: Start: 10-17-2024 Comprehensive metabo lic panel Marvel Felix MD Work Phone: Start: 10-17-2024 Drug screen quantita tive vancomycin Mack Grady MD Work Phone: Start: 10-16-2024 Comprehensive metabo lic jeannine Felix MD Work Phone: Start: 10-16-2024 Blood typing serolog ic rh (d) Rosa Haider MD Work Phone: Start: 10-16-2024 Prothrombin time Rosa Haider MD Work Phone: Start: 10-15-2024 Comprehensive metabo lic panel Marvel Felix MD Work Phone: Start: 10-14-2024 Assay of lactate Delilah Almanza MD Work Phone: Start: 10-14-2024 Comprehensive metabo lic panel Marvel Felix MD Work Phone: Start: 10-14-2024 Drug screen quantita tive vancomycin Marvel Felix MD Work Phone: Start: 10-13-2024 Assay of lactate Marvel Felix MD Work Phone: Start: 10-13-2024 EXTRA URINE RHODES TUBE S lyubov Felix MD Work Phone: Start: 10-13-2024 Urinalysis complete W Reflex Culture panel - Urine Marvel Felix MD Work Phone: Start: 10-13-2024 Urnls dip stick/tabl et reagent auto microscopy Marvel Felix MD Work Phone: Start: 10-13-2024 End: 10-13-2024 Chloride bld Marvel samson MD Work Phone: Start: 10-13-2024 End: 10-13-2024 Culture bacterial blood aerobic w/id isolates Marvel Felix MD Work Phone: Start: 10-13-2024 Ecg routine ecg w/le ast 12 lds trcg only w/o i&r Marvel Felix MD Work Phone: Start: 10-13-2024 PULSE OXIMETRY, CONTINUOUS Chelle Singh MD Work Phone: Start: 10-13-2024 Culture fngi mold/ye ast prsmptv oth xcpt blood Momo Dougherty MD Work Phone: Start: 10-13-2024 End: 10-13-2024 I&d deep absc bursa/hematoma thigh/knee region Momo Dougherty MD Work Phone: Start: 10-12-2024 Comprehensive metabo lic panel Marvel Felix MD Work Phone: Start: 10-12-2024 Drug screen quantita tive vancomycin Makayla Olvera MD Work Phone: Start: 10-11-2024 Blood typing serolog ic rh (d) Carlos Manuel Rader MD Work Phone: Start: 10-11-2024 Cul bact xcpt urine blood/stool aerobic isol Makayla Olvera MD Work Phone: Start: 10-11-2024 Renal function panel Helton layo Olvera MD Work Phone: Start: 10-11-2024 EXTRA URINE RHODES TUBE H margie Olvera MD Work Phone: Start: 10-11-2024 Urinalysis complete W Reflex Culture panel - Urine Makayla Olvera MD Work Phone: Start: 10-11-2024 Urnls dip stick/tabl et rgnt auto w/o microscopy Makayla Olvera MD Work Phone: Start: 10-11-2024 Chloride urine Makayla Olvera MD Work Phone: Start: 10-10-2024 Culture bacterial bl ood aerobic w/id isolates Mack Grady MD Work Phone: Start: 10-10-2024 Ct pelvis w/contrast material Mack Grady MD Work Phone: Start: 10-10-2024 Radiologic exam ches t single view Kishore Guiterrez MD Work Phone: Start: 10-10-2024 C-reactive protein Marianne Olvera MD Work Phone: Start: 10-10-2024 End: 10-10-2024 Glucose quantitative blood xcpt reagent strip Mack Grady MD Work Phone: Start: 09-17-2024 Renal function panel Ro janay Lewis MD Work Phone: Start: 09-16-2024 Drug screen quantita tive vancomycin Karissa Jelena Kilgore PharmD Work Phone: Start: 09-16-2024 Renal function panel Akanksha Lewis MD Work Phone: Start: 09-15-2024 Drug screen quantita tive vancomycin Shane Galeano MD Work Phone: Start: 09-15-2024 Renal function panel Kaiser Boyd MD Work Phone: Start: 09-15-2024 Renal function panel Ro janay Lewis MD Work Phone: Start: 09-14-2024 Influenza virus A an d B RNA [Identifier] in Unspecified specimen by MERON with probe detection Juanito Boyd MD Work Phone: Start: 09-14-2024 SARS-CoV-2 (COVID-19 ) RNA [Presence] in Respiratory specimen by MERON with probe detection Juanito Boyd MD Work Phone: Start: 09-14-2024 AFB PROCESSED Danna mcmillan MD Work Phone: Start: 09-14-2024 Culture fngi mold/ye ast prsmptv oth xcpt blood Danna Alves MD Work Phone: Start: 09-14-2024 Cul bact xcpt urine blood/stool aerobic isol Shane Galeano MD Work Phone: Start: 09-14-2024 Lipid panel Carlos kirk MD Work Phone: Start: 09-14-2024 Renal function panel Akanksha Lewis MD Work Phone: Start: 09-14-2024 Lipid 1996 panel - S eliot or Plasma Ankit Nino MD Work Phone: Start: 09-14-2024 Ecg routine ecg w/le ast 12 lds trcg only w/o i&r Carlos Lewis MD Work Phone: Start: 09-13-2024 Blood typing serolog ic rh (d) Carlos Lewis MD Work Phone: Start: 09-13-2024 Chloride bld Carlos kirk MD Work Phone: Start: 09-13-2024 End: 09-13-2024 Culture bacterial blood aerobic w/id isolates Carlos Lewis MD Work Phone: Start: 09-13-2024 Radiologic exam ches t single view Carlos Lewsi MD Work Phone: Start: 09-13-2024 EXTRA URINE RHODES TUBE R dorian Lewis MD Work Phone: Start: 09-13-2024 Urinalysis complete W Reflex Culture panel - Urine Carlos Lewis MD Work Phone: Start: 09-12-2024 Cul bact xcpt urine blood/stool aerobic isol Xiomara Kauffman MD Work Phone: Start: 09-12-2024 End: 09-12-2024 Bacteria identified in Blood by Culture Xiomara Kauffman MD Work Phone: Start: 09-12-2024 Ct abdomen & pelvis w/contrast material Xiomara Kauffman MD Work Phone: Start: 09-12-2024 Basic metabolic pane l calcium total Xiomara Kauffman MD Work Phone: Start: 09-12-2024 Radiologic exam ches t single view Xiomara Kauffman MD Work Phone: Start: 09-12-2024 Ecg routine ecg w/le ast 12 lds trcg only w/o i&r Xiomara Kauffman MD Work Phone: Start: 11-23-2023 Ecg routine ecg w/le ast 12 lds trcg only w/o i&r Kimber Last MD Work Phone: Start: 04-08-2023 Comprehensive metabo lic panel Vivian Keen MD Work Phone: Start: 04-08-2023 QUANTIFERON - PLUS RHODES TUBE Vivian Keen MD Work Phone: Start: 04-08-2023 QUANTIFERON - PLUS G REEN TUBE Vivian Keen MD Work Phone: Start: 04-08-2023 QUANTIFERON - PLUS P URPLE TUBE Vivian Keen MD Work Phone: Start: 04-08-2023 QUANTIFERON - PLUS Y ELLOW TUBE Vivian Keen MD Work Phone: Start: 04-08-2023 QUANTIFERON TB GOLD Tomas Keen MD Work Phone: Plan of Treatment Date Care Activity Detail Author Start: 2048 RSV Immunization for Adults (1 - 1-dose 75+ series) RSV Immunization for Adults (1 - 1-dose 75+ series) [facility] Start: 2033 RSV patient s and/or patients aged 60+ years (1 - 1-dose 60+ series) RSV patients and/or patients aged 60+ years (1 - 1-dose 60+ series) [facility] Start: 09-14-[address] [facility] Start: 11-13-[address] [facility] Start: 09-14-[address] [facility] Start: 11-08-[address] [facility] Start: 09-14-[address] [facility] Start: 05-19-2025 Influenza vaccination [facility] Start: 01-27-2025 End: 01-27-2025 Follow-up encounter 01/27/2025 2:40 PM EDT Follow-Up [facility] [address] [place] [address] Ara Riggs, PA-C [address] [place] [address] [facility] Start: 01-21-2025 End: 01-21-2025 Patient encounter procedure 01/21/2025 2:30 PM EDT Office Visit [facility] [address] [place] [phone] Astrid Watson, FLYER MAKER-SENIOR DATABASE ENGINEER [address] [place] [address] [facility] Start: 01-16-2025 End: 01-16-2025 ambulatory 01/16/2025 4:00 PM EDT Infusion [facility] [address] [place] [address] [facility] Start: 01-16-2025 End: 01-16-2025 Patient encounter procedure 01/16/2025 3:00 PM EDT Office Visit [facility] [address] [place] [address] Sarah Rodarte, FLYER MAKER-SENIOR DATABASE ENGINEER [address] [place] [address] [facility] Start: 01-13-2025 End: 01-13-2025 Patient encounter procedure 01/13/2025 2:00 PM EDT Appointment [facility] [address] [place] [address] [facility] Start: 01-10-2025 End: 01-10-2025 Patient encounter procedure 01/10/2025 4:45 PM EDT Appointment [facility] [address] [place] [address] [facility] Start: 01-10-2025 End: 01-10-2026 CBC W Auto Differential panel - Blood CBC and Auto Differential Lab Routine Squamous cell carcinoma of left hip Expected: 01/10/2025, Expires: 01/10/2026 [facility] Service Area Work Phone: Comment on above: Expected: 01/10/2025 , Expires: 01/10/2026 Start: 01-10-2025 End: 01-10-2026 Comprehensive metabolic 2000 panel - Serum or Plasma Comprehensive metabolic panel Lab Routine Squamous cell carcinoma of left hip Expected: 01/10/2025, Expires: 01/10/2026 [facility] Work Phone: Comment on above: Expected: 01/10/2025 , Expires: 01/10/2026 Start: 01-10-2025 End: 01-10-2026 Lactate dehydrogenase [Enzymatic activity/volume] in Serum or Plasma by Lactate to pyruvate reaction Lactate dehydrogenase Lab Routine Squamous cell carcinoma of left hip Expected: 01/10/2025, Expires: 01/10/2026 [facility] Work Phone: Comment on above: Expected: 01/10/2025 , Expires: 01/10/2026 Start: 01-10-2025 End: 01-10-2025 ambulatory 01/10/2025 1:00 PM EDT Infusion [facility] [address] [place] [address] [facility] Start: 01-10-2025 End: 01-10-2025 Patient encounter procedure [facility] Start: 01-09-2025 End: 01-09-2025 Patient encounter procedure [facility] Start: 01-08-2025 End: 01-08-2025 Patient encounter procedure [facility] Start: 01-07-2025 End: 01-07-2025 ambulatory [facility] Start: 01-07-2025 End: 01-07-2025 Patient encounter procedure [facility] Start: 01-07-2025 End: 01-07-2025 Patient encounter procedure 01/07/2025 8:30 AM EDT Appointment [facility] [address] [place] [address] [facility] Start: 01-06-2025 End: 01-06-2025 Patient encounter procedure 01/06/2025 6:00 PM EDT Appointment [facility] [address] [place] [address] [facility] Start: 12-30-2024 End: 12-30-2024 ambulatory [facility] Start: 12-30-2024 End: 12-30-2024 Patient encounter procedure 12/30/2024 10:00 AM EDT Office Visit [facility] [address] [place] [address] Astrid Watson, FLYER MAKER-SENIOR DATABASE ENGINEER [address] [place] [address] [facility] Start: 12-20-2024 End: 12-20-2024 ambulatory [facility] Start: 12-17-2024 End: 12-17-2024 ambulatory [facility] Start: 12-17-2024 End: 12-17-2024 Patient encounter procedure 12/17/2024 1:00 PM EDT Office Visit [facility] [address] [place] [address] Astrid Watson, FLYER MAKER-SENIOR DATABASE ENGINEER [address] [place] [address] [facility] Start: 12-06-2024 End: 12-06-2025 CBC W Auto Differential panel - Blood CBC and Auto Differential Lab Routine Squamous cell carcinoma of left hip Expected: 12/06/2024, Expires: 12/06/2025 [facility] Service Area Work Phone: Comment on above: Expected: 12/06/2024 , Expires: 12/06/2025 Start: 12-06-2024 End: 12-06-2025 Comprehensive metabolic 2000 panel - Serum or Plasma Comprehensive metabolic panel Lab Routine Squamous cell carcinoma of left hip Expected: 12/06/2024, Expires: 12/06/2025 [facility] Work Phone: Comment on above: Expected: 12/06/2024 , Expires: 12/06/2025 Start: 12-06-2024 End: 12-06-2025 Corticotropin [Mass/volume] in Plasma Acth Lab Routine Squamous cell carcinoma of left hip Expected: 12/06/2024, Expires: 12/06/2025 [facility] Work Phone: Comment on above: Expected: 12/06/2024 , Expires: 12/06/2025 Start: 12-06-2024 End: 12-06-2025 Cortisol [Mass or Moles/volume] in Serum or Plasma --AM peak specimen Cortisol Am Lab Routine Squamous cell carcinoma of left hip Expected: 12/06/2024, Expires: 12/06/2025 [facility] Work Phone: Comment on above: Expected: 12/06/2024 , Expires: 12/06/2025 Start: 12-06-2024 End: 12-06-2025 Lactate dehydrogenase [Enzymatic activity/volume] in Serum or Plasma by Lactate to pyruvate reaction Lactate dehydrogenase Lab Routine Squamous cell carcinoma of left hip Expected: 12/06/2024, Expires: 12/06/2025 [facility] Work Phone: Comment on above: Expected: 12/06/2024 , Expires: 12/06/2025 Start: 12-06-2024 End: 12-06-2025 Tsh With Reflex To Free T4 If Abnormal Tsh With Reflex To Free T4 If Abnormal Lab Routine Squamous cell carcinoma of left hip Expected: 12/06/2024, Expires: 12/06/2025 [facility] Work Phone: Comment on above: Expected: 12/06/2024 , Expires: 12/06/2025 Start: 11-29-2024 End: 11-29-2024 ambulatory [facility] Start: 11-12-2024 End: 11-12-2024 ambulatory [facility] Start: 09-30-2024 End: 09-30-2024 Patient encounter procedure 09/30/2024 10:00 AM EST Office Visit [facility] [address] [facility] [address] [place] [address] [place] [address] Department of Dermatology/[place] [address] [facility] Start: 09-24-2024 End: 09-24-2024 Telemedicine consultation with patient 09/24/2024 8:40 AM EST Telemedicine [facility] [address] [facility] [address] [place] [address] [place] [address] [place] [address] [facility] Start: 09-20-2024 End: 09-20-2024 Patient encounter procedure 09/20/2024 11:30 AM EST Office Visit [address] [place] [address] Ronna Carpenter, FLYER MAKER-SENIOR DATABASE ENGINEER [address] [place], [place] [id number] [facility] Start: 09-18-2024 End: 09-17-2025 CBC panel - Blood by Automated count CBC Lab Routine Wound infection Expected: 09/18/2024 (Approximate), Expires: 09/17/2025 [facility] Work Phone: Comment on above: Expected: 09/18/2024 (Approximate), Expires: 09/17/2025 Start: 09-18-2024 End: 09-17-2025 Renal function 2000 panel - Serum or Plasma Renal function panel Lab Routine Wound infection Expected: 09/18/2024 (Approximate), Expires: 09/17/2025 [facility] Service Area Work Phone: Comment on above: Expected: 09/18/2024 (Approximate), Expires: 09/17/2025 Start: 05-19-2024 COVID-19 Vaccine ( season) COVID-19 Vaccine ( season) [facility] Start: 05-19-2024 Influenza vaccination [facility] Start: 05-19-2024 [facility] Start: 04-12-2024 End: 04-12-2024 Patient encounter procedure 04/12/2024 9:00 AM EDT Office Visit [facility] [address] [facility] [address] [place] [id number] [place] [address] Department of Dermatology/[place] [address] [facility] Start: 03-29-2024 End: 03-29-2024 Patient encounter procedure 03/29/2024 9:00 AM EDT Office Visit [facility] [address] [facility] [address] [place] [address] [place] [address] Department of Dermatology/[place] [address] [facility] Start: 03-19-2024 DTaP/Tdap/Td Vaccine s (2 - Td or Tdap) DTaP/Tdap/Td Vaccines (2 - Td or Tdap) [facility] Center Start: 03-19-2024 [facility] Start: 02-29-2024 End: 02-28-2025 ECG 12 lead (Ancillary Performed) [facility] Service Area Work Phone: Comment on above: Expected: 02/29/2024 (Approximate), Expires: 02/28/2025 Once for 1 Occurrenc es starting 02/29/2024 until 02/29/2024 Start: 02-09-2024 End: 02-09-2024 Patient encounter procedure 02/09/2024 9:30 AM EDT Office Visit [facility] [id number] [place] [address] [place] [id number] [address] Department of Dermatology/[place] [address] [facility] Start: 01-16-2024 End: 01-16-2024 Patient encounter procedure 01/16/2024 10:30 AM EDT Office Visit [facility] [id number] [facility] [address] [place] [address] [place] [id number] [address] Department of Dermatology/[place] [address] [facility] Start: 11-23-2023 Subsequent hospital visit by physician 11/23/2023 11:01 AM EST Hospital Encounter [facility] [address] [place] [address] Clinical trial participant [facility] Comment on above: Clinical trial parti cipant Start: 2023 Pneumococcal vaccination Pneum ococcal Vaccine (2 of 2 - PCV) [facility] Start: 2023 Pneumococcal Vaccine : 50+ Years (2 of 2 - PCV) Pneumococcal Vaccine: 50+ Years (2 of 2 - PCV) [facility] Start: 2023 Screening for malign ant neoplasm of lung [facility] Start: 2023 Zoster Vaccines (1 of 2) Zoste r Vaccines (1 of 2) [facility] Start: 2023 [facility] Start: 05-19-2023 COVID-19 Vaccine ( season) COVID-19 Vaccine (2022- season) [facility] Start: 05-19-2023 Influenza vaccination Influenza Vacc ine (#1) [facility] Start: 03-19-2015 Pneumococcal vaccination Pneum ococcal Vaccine (2 of 2 - PCV) [facility] Start: 03-19-2015 [facility] Start: 1995 DTaP/Tdap/Td Vaccine s (1 - Tdap) DTaP/Tdap/Td Vaccines (1 - Tdap) [facility] Start: 1992 DTaP/Tdap/Td Vaccine s (1 - Tdap) DTaP/Tdap/Td Vaccines (1 - Tdap) [facility] Start: 1992 Hepatitis B Vaccines (1 of 3 - 19+ 3-dose series) Hepatitis B Vaccines (1 of 3 - 19+ 3-dose series) [facility] Start: 1992 Urine screening for protein [facility] Start: 1992 Zoster Vaccines (1 of 2) Zoste r Vaccines (1 of 2) [facility] Start: 1992 [facility] Start: 1991 Diabetes mellitus screening Diabetes Screening [facility] Start: 1991 Hepatitis C screening [facility] Start: 1985 Depression Screening Depression Scre ening [facility] Start: 1978 COVID-19 Vaccine (#1) COVID-19 Vacci ne (#1) [facility] Start: 1978 [facility] Start: 1974 MMR Vaccines (1 of 1 - Standard series) MMR Vaccines (1 of 1 - Standard series) [facility] Start: 1974 [facility] Start: 01-29-1974 COVID-19 Vaccine (#1) COVID-19 Vacci ne (#1) [facility] Start: 01-29-1974 Examination of skin [facility] Start: 1973 Hepatitis B Vaccines (1 of 3 - 3-dose series) Hepatitis B Vaccines (1 of 3 - 3-dose series) [facility] Start: 1973 HIV screening [facility] Start: 1973 Lipid panel [facility] Start: 1973 Screening for malign ant neoplasm of colon [facility] Start: 1973 Yearly Adult Physical Yearly Adult P hysical [facility] Start: 1973 [facility] End: 12-17-2024 Acupuncture eval and treat [facility] Service Area Work Phone: End: 09-12-2024 Aerobic and Anaerobic Culture with Stain [facility] Work Phone: Comment on above: Once (Lab) for 1 Occ urrences starting 09/12/2024 until 09/12/2024 End: 11-08-2024 Aerobic and Anaerobic Culture with Stain Aerobic and Anaerobic Culture with Stain Microbiology STAT Once (Lab) for 1 Occurrences starting 11/08/2024 until 11/08/2024 [facility] Work Phone: Comment on above: Once (Lab) for 1 Occ urrences starting 11/08/2024 until 11/08/2024 End: 12-06-2024 Aerobic and Anaerobic Culture with Stain [facility] Work Phone: Comment on above: Once (Lab) for 1 Occ urrences starting 12/06/2024 until 12/06/2024 End: 12-22-2024 Aerobic and Anaerobic Culture with Stain [employer] Work Phone: Comment on above: Once (Lab) for 1 Occ urrences starting 12/22/2024 until 12/22/2024 End: 09-16-2024 AFB CULTURE & STAIN; [facility]; [id number] - Miscellaneous Test [facility] Work Phone: Comment on above: Once (Lab) for 1 Occ urrences starting 09/16/2024 until 09/16/2024, 1 completed End: 11-18-2024 Art Therapy eval and treat [facility] Work Phone: End: 12-08-2024 Art Therapy [facility] Work Phone: Bacteria identified in Blood by Culture [employer] Bacteria identified in Blood by Culture Blood Culture Microbiology Routine 09/13/2024 11:[address] [facility] Work Phone: Bacteria identified in Blood by Culture [employer] Bacteria identified in Blood by Culture [employer] Bacteria identified in Blood by Culture [employer] Bacteria identified in Unspecified specimen by Aerobe culture Culture, Aerobic Bacteria with Gram Stain Microbiology STAT 09/12/2024 9:58 PM EST [employer] End: 11-08-2024 Bacteria identified in Unspecified specimen by Aerobe culture Culture, Aerobic Bacteria with Gram Stain Microbiology Timed Once for 1 Occurrences starting 11/08/2024 until 11/08/2024 [employer] Work Phone: Comment on above: Once for 1 Occurrenc es starting 11/08/2024 until 11/08/2024 Bacteria identified in Unspecified specimen by Aerobe culture Culture, Aerobic Bacteria with Gram Stain Microbiology STAT 12/06/2024 12:18 PM EDT [facility] [employer] [email or web address] Bacteria identified in Unspecified specimen by Aerobe culture Culture, Aerobic Bacteria with Gram Stain Microbiology STAT 12/22/2024 1:37 PM EDT [facility] [email or web address] End: 09-12-2024 Bacteria identified in Unspecified specimen by Anaerobe culture [facility] [email or web address] Comment on above: Once for 1 Occurrenc es starting 09/12/2024 until 09/12/2024 End: 11-08-2024 Bacteria identified in Unspecified specimen by Anaerobe culture Anaerobic culture Microbiology Timed Once for 1 Occurrences starting 11/08/2024 until 11/08/2024 [facility] [employer] [facility] [email or web address] Comment on above: Once for 1 Occurrenc es starting 11/08/2024 until 11/08/2024 End: 12-06-2024 Bacteria identified in Unspecified specimen by Anaerobe culture [facility] [email or web address] Comment on above: Once for 1 Occurrenc es starting 12/06/2024 until 12/06/2024 Bacteria identified in Unspecified specimen by Anaerobe culture Anaerobic culture Microbiology STAT 12/22/2024 1:37 PM EDT [facility] [employer] [facility] [email or web address] Basic metabolic 2000 panel - Serum or Plasma [facility] Work Phone: CBC W Auto Different ial panel - Blood CBC and Auto Differential Lab Routine Morning draw (Lab) until discontinued starting 09/14/2024, 4 completed [facility] Service [facility] Work Phone: Comment on above: Morning draw (Lab) u ntil discontinued starting 09/14/2024, 4 completed CBC W Auto Different ial panel - Blood [facility] Work Phone: CBC W Auto Different ial panel - Blood [facility] Work Phone: CBC W Auto Different ial panel - Blood [facility] Work Phone: End: 10-11-2024 Consult to Interventional Radiology [facility] Work Phone: End: 11-12-2024 Consult to Inter[address] Radiology [facility] Work Phone: End: 11-20-2024 Consult to Interventional Radiology [facility] Work Phone: ECG 12 Lead ECG 12 Lead ECG Routine 09/14/2024 12:[address] [facility] Work Phone: End: 11-13-[address] [facility] Work Phone: ECG 12 lead (Ancilla ry Performed) ECG 12 lead (Ancillary Performed) ECG Routine Clinical trial participant 11/23/2023 11:01 AM EST [facility] Work Phone: Electrocardiogram, 12-lead PRN ACS symptoms Electrocardiogram, 12-lead PRN ACS symptoms ECG Routine As needed until discontinued starting 09/13/2024 [facility] Work Phone: Comment on above: As needed until disc ontinued starting 09/13/2024 Electrocardiogram, 12-lead PRN ACS symptoms [facility] Work Phone: Electrocardiogram, 12-lead PRN ACS symptoms [facility] Work Phone: Electrocardiogram, 12-lead PRN ACS symptoms [facility] Work Phone: End: 09-13-2024 Fungitell Beta-D Glucan Serum [facility] Work Phone: Comment on above: Once (Lab) for 1 Occ urrences starting 09/13/2024 until 09/13/2024 Fungus identified in Unspecified specimen by Culture Fungal Culture/Smear Microbiology Routine 09/14/2024 11:41 AM EST [facility] Work Phone: Fungus identified in Unspecified specimen by Culture [facility] Work Phone: End: 09-13-2024 Histoplasma antigen, serum [facility] Work Phone: Comment on above: Once (Lab) for 1 Occ urrences starting 09/13/2024 until 09/13/2024 Magnesium [Mass/volu me] in Serum or Plasma Magnesium Lab Routine Morning draw (Lab) until discontinued starting 09/14/2024, [address] [facility] Work Phone: Comment on above: Morning draw (Lab) u ntil discontinued starting 09/14/2024, 4 completed Magnesium [Mass/volu me] in Serum or Plasma [facility] Work Phone: Magnesium [Mass/volu me] in Serum or Plasma [facility] Work Phone: End: 12-21-2024 Magnesium [Mass/volume] in Serum or Plasma [facility] Work Phone: End: 11-18-2024 Music Therapy eval and treat [facility] Work Phone: End: 12-08-2024 Music Therapy eval and treat [facility] Work Phone: Phosphate [Mass/volu me] in Serum or Plasma [facility] Work Phone: Renal function 1999 panel - Serum or Plasma Renal Function Panel Lab Routine Morning draw (Lab) until discontinued starting 09/14/2024, [address] [facility] Work Phone: Comment on above: Morning draw (Lab) u ntil discontinued starting 09/14/2024, 4 completed Renal function 1999 panel - Serum or Plasma [facility] Work Phone: Renal function 1999 panel - Serum or Plasma [facility] Work Phone: Immunizations Immunization Date Immunization Notes Care Provider Fa cili 12-08-2024 influenza vaccine tiss-cult subunt (Flucelvax) STANDARD-DOSE injection 0.5 mL Fer Hollins MD Work Phone: [facility] Payers Date Payer Category Payer Self-pay 2024 Medicaid (Managed Care) [id number] 2024 Medicaid HMO [id number] 2024 Unknown [id number] 2024 Medicaid [id number] 2022 Managed Care (Private) [employer] [facility] [id number] 2022 Private Health Insurance [id number] 2022 Private Health Insurance [id number] 1973 Unknown [id number] 2.16.840.1.535002.3.579. 2.1243 1973 Unknown [id number] 2.16.840.1.198329.3.579. 2.1243 1973 Unknown [id number] 2.16.840.1.240775.3.579. 2.1243 1973 Unknown [id number] 2.16.840.1.395875.3.579. 2.1243 1973 Unknown [id number] 2.16.840.1.472740.3.579. 2.1243 1973 Unknown [id number] 2.16.840.1.522693.3.579. 2.1243 1973 Unknown [id number] 2.16.840.1.514228.3.579. 2.1243 1973 Unknown [id number] 2.16.840.1.395063.3.579. 2.1243 1973 Unknown [id number] 2.16.840.1.380466.3.579. 2.1243 1973 Unknown [id number] 2.16.840.1.624038.3.579. 2.1243 1973 Unknown [id number] 2.16.840.1.071818.3.579. 2.1244 1973 Unknown [id number] 2.16.840.1.453154.3.579. 2.1244 1973 Unknown [id number] 2.16.840.1.599088.3.579. 2.1244 1973 Unknown [id number] 2.16.840.1.347056.3.579. 2.1244 1973 Unknown [id number] 2.16.840.1.996685.3.579. 2.1244 1973 Unknown [id number] 2.16.840.1.387979.3.579. 2.1244 1973 Unknown [id number] 2.16.840.1.623544.3.579. 2.1244 1973 Unknown [id number] 2.16.840.1.130687.3.579. 2.1244 1973 Unknown [id number] 2.16.840.1.769474.3.579. 2.1244 1973 Unknown [id number] 2.16.840.1.406584.3.579. 2.1244 1973 Unknown [id number] 2.16.840.1.101847.3.579. 2.1244 1973 Unknown [id number] 2.16.840.1.045458.3.579. 2.1244 1973 Unknown [id number] 2.16.840.1.887776.3.579. 2.1244 1973 Unknown [id number] 2.16.840.1.997835.3.579. 2.1244 1973 Unknown [id number] 2.16.840.1.406915.3.579. 2.1244 1973 Unknown [id number] 2.16.840.1.346533.3.579. 2.1244 1973 Unknown [id number] 2.16.840.1.101080.3.579. 2.1244 1973 Unknown [id number] 2.16.840.1.515014.3.579. 2.1245 1973 Unknown [id number] 2.16.840.1.311508.3.579. 2.1245 1973 Unknown [id number] 2.16.840.1.515739.3.579. 2.1245 1973 Unknown [id number] 2.16.840.1.422300.3.579. 2.1245 1973 Unknown [id number] 2.16.840.1.040527.3.579. 2.1245 1973 Unknown [id number] 2.16.840.1.212487.3.579. 2.1245 Unknown [id number] 2.16.840.1.391273.3.579. 2.462 Unknown [id number] 2.16.840.1.008611.3.579. 2.462 Unknown [id number] 2.16.840.1.788619.3.579. 2.462 Social History Date Type Detail [facility] Start: 1975 Sex Assigned At Not on file [facility] Start: 09-13-2024 End: 01-14-2025 Gender identity Not on file [facility] Start: 03-29-2023 End: 12-24-2024 Exposure to SARS-CoV-2 (event) Not sure [facility] Start: 04-08-2023 End: 12-27-2024 Sex Male (finding) [facility] Start: 09-18-1986 [facility] Work Phone: Start: 09-18-1986 End: 09-18-1986 History of tobacco use Cigarette Smoker [facility] Work Phone: Start: 09-13-2024 End: 01-14-2025 Cigarettes smoked current (pack per day) - Reported [address] [facility] Work Phone: Start: 09-13-2024 End: 11-10-2024 Tobacco use and exposure Smokeless tobacco non-user [facility] Work Phone: How often to you hav e a drink containing alcohol? Never [facility] Work Phone: How many standard drinks containing alcohol do you have on a typical day? Patient does not drink [facility] Work Phone: How hard is it for y ou to pay for the very basics like food, housing, medical care, and heating Very hard [facility] In the past 12 month s, was there a time when you were not able to pay the mortgage or rent on time? Yes [facility] Work Phone: At any time in the p ast 12 months, were you homeless or living in custodial [including now]? No [facility] Work Phone: How hard is it for y ou to pay for the very basics like food, housing, medical care, and heating Somewhat hard [facility] (I/We) worried wheth er (my/our) food would run out before (I/we) got money to buy more. Sometimes true [facility] Work Phone: (I/We) worried [employer] er (my/our) food would run out before (I/we) got money to buy more. Never true [facility] Start: 11-10-2024 Tobacco smoking stat us SCIS Ex-smoker [facility] Start: 09-18-2023 End: 09-18-1986 History of tobacco use Current smoker [facility] Work Phone: Start: 11-10-2024 End: 01-09-2025 Alcoholic beverage intake Ex-drinker (finding) [facility] Work Phone: Start: 1975 Sex Assigned At Male [facility] Functional Status Date Assessment Result Facility 12-07-2024 Are you deaf, or do you have serious difficulty hearing No 12/07/2024 2:58 PM Josie Laurent RN No [facility] 12-07-2024 Are you blind, or do you have serious difficulty seeing, even when wearing glasses No 12/07/2024 2:58 PM EDT Josie Townsend RN No [facility] 12-07-2024 Do you have serious difficulty walking or climbing stairs Yes 12/07/2024 2:58 PM EDT Josie Townsend RN Yes [facility] 12-07-2024 Because of a physica l, mental, or emotional condition, do you have difficulty doing errands alone such as visiting a physician's office or shopping Yes 12/07/2024 2:58 PM EDT Josie Townsend RN Yes [facility] Mental Status Date Assessment Result Facility 12-07-2024 Because of a physica l, mental, or emotional condition, do you have serious difficulty concentrating, remembering, or making decisions No 12/07/2024 2:58 PM EDT Josie Townsend RN No [facility] Clinical Notes 04-04-2024 to 01-09-2025 Phil Quijano MD - 01/09/2025 5:00 PM EDTCare Plan - Wili López RN - 12/24/2024 11:35 AM EDTCare Serafin López RN - 12/24/2024 11:35 AM HASMUKHTWili López RN - 12/24/2024 10:03 AM EDT Note Date & Type Note Facility 01-09-2025 History of Present illness Narrative Images from the original note were not included. Radiation Oncology On Treatment Visit Patient Name: Kevan La : 1975 Referring Provider: No ref. provider found Primary Care Provider: No Assigned PCP Ernestina Hagan MD Care Team: Patient Care Team: No Assigned Pcp Ernestina Hagan MD as PCP - General (Ground Source Heat Pump Technician) Sreedhar Jiang MD as Consulting Physician (Hematology and Oncology) Date of Service: 01/09/2025 at 1800 Diagnosis: Specialty Problems Radiation Oncology Problems Squamous cell carcinoma of left hip Hypercalcemia of malignancy Treatment Summary: Radiation Therapy Treatment Period Technique Fraction Dose Fractions Total Dose Course 1 01/07/2025-01/13/2025 (days elapsed: 6) L buttock 01/07/2025-01/13/2025 3D 400 / 400 cGy 5 / 5 2,000 / 2,000 cGy SUBJECTIVE: His pain is better controlled. He feels similar overall. OBJECTIVE: Vital Signs: There were no vitals taken for this visit. Other Pertinent Findings: Toxicity Assessment 01/09/2025 17:37 Toxicity Assessment Treatment Site Skin Anorexia Grade 0 Anxiety Grade 0 Dehydration Grade 0 Depression Grade 0 Dermatitis Radiation Grade 0 Diarrhea Grade 0 Fatigue Grade 0 Pain Grade 1 states pain is about a 7 Vomiting Grade 0 Pain of Skin Grade 1 Rash Acneiform Grade 0 Assessment / Plan: The patient is tolerating radiation therapy as anticipated. Continue per current treatment plan. Follow up PRN. documented in this encounter [facility] Work Phone: 12-24-2024 Plan of care note Problem: Knowledge Deficit Goal: Patient/family/caregiver demonstrates understanding of disease process, treatment plan, medications, and discharge instructions Outcome: Adequate for Discharge Problem: Potential for Compromised Skin Integrity Goal: Skin Integrity is Maintained or Improved Outcome: Adequate for Discharge Goal: Nutritional status is improving Outcome: Adequate for Discharge Problem: Urinary Incontinence Goal: Perineal skin integrity is maintained or improved Outcome: Adequate for Discharge Problem: Potential for Falls Goal: I will remain free of falls Outcome: Adequate for Discharge Problem: Discharge Barriers Goal: My discharge needs are met Outcome: Adequate for Discharge Problem: Pain - Adult Goal: Verbalizes/displays adequate comfort level or baseline comfort level Outcome: Adequate for Discharge Problem: Safety - Adult Goal: Free from fall injury Outcome: Adequate for Discharge Problem: Discharge Planning Goal: Discharge to home or other facility with appropriate resources Outcome: Adequate for Discharge Problem: Chronic Conditions and Co-morbidities Goal: Patient's chronic conditions and co-morbidity symptoms are monitored and maintained or improved Outcome: Adequate for Discharge [facility] 12-24-2024 Miscellaneous Notes Problem: Knowledge Deficit Goal: Patient/family/caregiver demonstrates understanding of disease process, treatment plan, medications, and discharge instructions Outcome: Adequate for Discharge Problem: Potential for Compromised Skin Integrity Goal: Skin Integrity is Maintained or Improved Outcome: Adequate for Discharge Goal: Nutritional status is improving Outcome: Adequate for Discharge Problem: Urinary Incontinence Goal: Perineal skin integrity is maintained or improved Outcome: Adequate for Discharge Problem: Potential for Falls Goal: I will remain free of falls Outcome: Adequate for Discharge Problem: Discharge Barriers Goal: My discharge needs are met Outcome: Adequate for Discharge Problem: Pain - Adult Goal: Verbalizes/displays adequate comfort level or baseline comfort level Outcome: Adequate for Discharge Problem: Safety - Adult Goal: Free from fall injury Outcome: Adequate for Discharge Problem: Discharge Planning Goal: Discharge to home or other facility with appropriate resources Outcome: Adequate for Discharge Problem: Chronic Conditions and Co-morbidities Goal: Patient's chronic conditions and co-morbidity symptoms are monitored and maintained or improved Outcome: Adequate for Discharge Problem: Knowledge Deficit Goal: Patient/family/caregiver demonstrates understanding of disease process, treatment plan, medications, and discharge instructions 12/24/2024104 by Diana Wise RN Outcome: Progressing 12/24/2024103 by Diana Wise RN Outcome: Progressing 12/23/20242013 by Diana Wise RN Outcome: Progressing Problem: Urinary Incontinence Goal: Perineal skin integrity is maintained or improved 12/24/2024104 by Diana Wise RN Outcome: Progressing 12/24/2024103 by Diana Wise RN Outcome: Progressing 12/23/20242013 by Diana Wise RN Outcome: Progressing Problem: Potential for Falls Goal: I will remain free of falls 12/24/2024104 by Diana Wise RN Outcome: Progressing 12/24/2024103 by Diana Wise RN Outcome: Progressing 12/23/20242013 by Diana Wise RN Outcome: Progressing Problem: Discharge Barriers Goal: My discharge needs are met 12/24/2024104 by Diana Wise RN Outcome: Progressing 12/24/2024103 by Diana Wise RN Outcome: Progressing 12/23/20242013 by Diana Wise RN Outcome: Progressing Problem: Pain - Adult Goal: Verbalizes/displays adequate comfort level or baseline comfort level 12/24/2024104 by Diana Wise RN Outcome: Progressing 12/24/2024103 by Diana Wise RN Outcome: Progressing 12/23/20242013 by Diana Wise RN Outcome: Progressing Problem: Safety - Adult Goal: Free from fall injury 12/24/2024104 by Diana Wise RN Outcome: Progressing 12/24/2024103 by Diana Wise RN Outcome: Progressing 12/23/20242013 by Diana Wise RN Outcome: Progressing Flowsheets (Taken 12/23/20242009) Free from fall injury: Instruct family/caregiver on patient safety Based on caregiver fall risk screen, instruct family/caregiver to ask for assistance with transferring if caregiver noted to have fall risk factors Problem: Discharge Planning Goal: Discharge to home or other facility with appropriate resources 12/24/2024104 by Diana Wise RN Outcome: Progressing 12/24/2024103 by Diana Wise RN Outcome: Progressing 12/23/20242013 by Diana Wise RN Outcome: Progressing Problem: Chronic Conditions and Co-morbidities Goal: Patient's chronic conditions and co-morbidity symptoms are monitored and maintained or improved 12/24/2024104 by Diana Wise RN Outcome: Progressing 12/24/2024103 by Diana Wise RN Outcome: Progressing 12/23/20242013 by Diana Wise RN Outcome: Progressing Problem: Knowledge Deficit Goal: Patient/family/caregiver demonstrates understanding of disease process, treatment plan, medications, and discharge instructions Outcome: Progressing Problem: Potential for Compromised Skin Integrity Goal: Skin Integrity is Maintained or Improved Outcome: Progressing Goal: Nutritional status is improving Outcome: Progressing Problem: Potential for Falls Goal: I will remain free of falls Outcome: Progressing Problem: Pain - Adult Goal: Verbalizes/displays adequate comfort level or baseline comfort level Outcome: Progressing Problem: Pain - Adult Goal: Verbalizes/displays adequate comfort level or baseline comfort level Outcome: Progressing Problem: Chronic Conditions and Co-morbidities Goal: Patient's chronic conditions and co-morbidity symptoms are monitored and maintained or improved Outcome: Progressing Culture reviewed. Awaiting sensitivity results documented in this encounter [facility] 12-24-2024 Note Hospitalist Progress Note Subjective: Admit Date: 12/22/2024 PCP: No primary care provider on file. Room#: E7-708/E7-708 A Chief Complaint Patient presents with Wound Infection Pt arrives by life care from [facility] in [place] pt has had wound infection since September, pt stood up out of bed last night and it started bleeding and having a foul odor last night. Brief Hospital course: Kevan is a 49 y.o. male with past medical history of chronic hidradenitis and recent squamous cell carcinoma presents with acute on chronic wound in septic shock. Initial vitals 89/54. Labs sig or WBC 19, LA 1.7. BC taken Received zosyn, vancomycin and fluids. Required levophed but is now off of. [facility] accepted him but waiting on bed until later this afternoon. He was boarded in our ED for 16hrs. Seen at bedside. Wounds are foul smelling. Pt states he was dropped off here from [facility] as it was the closest hospital. All his doctors including derm, surgery are at . Admitted for further evaluation and management. accepted the patient, bed available today, patient will be discharged to today Interval History: 12/24/2024-No overnight issues. Patient is seen and examined He is resting in his bed His blood pressure in lower side, oxycodone 5 mg given in 2 times instead of 20 mg once Labs reviewed WBC 14.8, improving, hemoglobin 7.1, worsening Case and plan discussed with patient and bedside nurse. All questions answered. Past Medical History: No past medical history on file. Adult diet Regular 24HR INTAKE/OUTPUT: Intake/Output Summary (Last 24 hours) at 12/24/2024 1114 Last data filed at 12/24/2024 0855 Gross per 24 hour Intake 1400 ml Output 2150 ml Net -750 ml LABS: CBC: Recent Labs 12/22/24 1253 12/24/24 0617 WBC 19.4* 14.8* RBC 3.33* 2.89* HGB 8.4* 7.1* HCT 26.8* 23.0* MCV 80.5 79.6 RDW 17.3* 17.5* PLT 698* 577* BMP: Recent Labs 12/22/24 1253 12/24/24 0459 NA 132* 139 K 4.0 3.7 CL 98 108* CO2 24 24 BUN 11 7* CREATININE 1.16 1.04 GLUCOSE 108* 97 CALCIUM 11.2* 10.3* ANIONGAP 10 7 LIVER PROFILE: Recent Labs 12/22/24 1253 AST 16 ALT 6 BILITOT 0.4 ALKPHOS 65 PROT 7.2 PT/INR: No results for input(s): "PROTIME", "INR" in the last 72 hours. CARDIAC ENZYMES: No results for input(s): "TROPONINI" in the last 72 hours. Procalcitonin: No results found for: "PROCAL" COVID-19 PCR: No results for input(s): "COVID19" in the last 72 hours. Objective: Vitals: BP (!) 95/45 (BP Location: Left arm, Patient Position: Lying) Pulse 83 Temp 36.7 ?C (98 ?F) (Temporal) Resp 15 Ht 6' 7.02" (2.007 m) Wt 198 lb 6.6 oz (90 kg) SpO2 97% BMI 22.34 kg/m? Pulse Ox: SpO2 Av.3 % Min: 92 % Max: 100 % Supplemental O2: Physical Exam HENT: Head: Normocephalic and atraumatic. Mouth/Throat: Mouth: Mucous membranes are moist. Cardiovascular: Rate and Rhythm: Normal rate and regular rhythm. Pulmonary: Effort: Pulmonary effort is normal. Abdominal: Palpations: Abdomen is soft. Skin: General: Skin is warm and dry. Comments: Lesion, check for image in media tab Neurological: Mental Status: He is alert. Psychiatric: Mood and Affect: Mood normal. Medications: Scheduled PRN acetaminophen, 1,000 mg, Oral, q6h enoxaparin, 40 mg, SubCUTAneous, Daily gabapentin, 300 mg, Oral, Nightly methadone, 10 mg, Oral, q8h piperacillin-tazobactam, 4,500 mg, IntraVENous, q6h sodium hypochlorite, , Irrigation, BID vancomycin, 15 mg/kg, IntraVENous, q12h PRN medications: acetaminophen OR acetaminophen, naloxone, ondansetron ODT OR ondansetron, oxyCODONE, polyethylene glycol (PEG) 3350 Continuous Assessment Data: (CAT1) Reviewed 2 notes from different specialty or health system (each=1). (CAT1) Reviewed 3 or more labs/studies ordered by another provider not previously counted (each=1, panels count as 1). (CAT1) Ordered 3 or more new labs and/or studies (each=1, panels count as 1). (LOW: 2x CAT1 or independent historian MOD: 3x CAT1 or 1x CAT3 EXTENSIVE: 3x CAT1 and 1x CAT3) Acute, acute on chronic, unstable/uncontrolled chronic problems/diagnoses: Septic shock Refractory Hidradenitis suppurative Gluteal abscess Leukocytosis Hypotension Pain Invasive squamous cell carcinoma Stable chronic problems affecting care, new non-acute diagnoses: Plan As a result of the above findings & factors, the following mgmt was pursued: - continue zosyn and vancomycin - continue fluids - follow BC - home gabapentin - prn oxycodone for pain - transfer to today - am labs, replace lytes prn - PT/OT/CM/SW - delirium precautions: increase activity, limit nighttime disturbances, and avoid anticholinergic meds, benzos, etc - DVT prophylaxis: encourage ambulation. Held for possible surgery Complexity: Acute illness or injury posing a threat to life or body function (HIGH). (more content not included)... [facility] 12-24-2024 History of Present illness Narrative Hospitalist Progress Note Subjective: Admit Date: 12/22/2024 PCP: No primary care provider on file. Room#: C6-708/D9-70 A Chief Complaint Patient presents with Wound Infection Pt arrives by life care from [facility] in [place] pt has had wound infection since September, pt stood up out of bed last night and it started bleeding and having a foul odor last night. Brief Hospital course: Kevan is a 49 y.o. male with past medical history of chronic hidradenitis and recent squamous cell carcinoma presents with acute on chronic wound in septic shock. Initial vitals 89/54. Labs sig or WBC 19, LA 1.7. BC taken Received zosyn, vancomycin and fluids. Required levophed but is now off of. [facility] accepted him but waiting on bed until later this afternoon. He was boarded in our ED for 16hrs. Seen at bedside. Wounds are foul smelling. Pt states he was dropped off here from [facility] as it was the closest hospital. All his doctors including derm, surgery are at . Admitted for further evaluation and management. accepted the patient, bed available today, patient will be discharged to today Interval History: 12/24/2024-No overnight issues. Patient is seen and examined He is resting in his bed His blood pressure in lower side, oxycodone 5 mg given in 2 times instead of 20 mg once Labs reviewed WBC 14.8, improving, hemoglobin 7.1, worsening Case and plan discussed with patient and bedside nurse. All questions answered. Past Medical History: No past medical history on file. Adult diet Regular 24HR INTAKE/OUTPUT: Intake/Output Summary (Last 24 hours) at 12/24/2024 1114 Last data filed at 12/24/2024 0855 Gross per 24 hour Intake 1400 ml Output 2150 ml Net -750 ml LABS: CBC: Recent Labs 12/22/24 1253 12/24/24 0617 WBC 19.4* 14.8* RBC 3.33* 2.89* HGB 8.4* 7.1* HCT 26.8* 23.0* MCV 80.5 79.6 RDW 17.3* 17.5* PLT 698* 577* BMP: Recent Labs 12/22/24 1253 12/24/24 0459 NA 132* 139 K 4.0 3.7 CL 98 108* CO2 24 24 BUN 11 7* CREATININE 1.16 1.04 GLUCOSE 108* 97 CALCIUM 11.2* 10.3* ANIONGAP 10 7 LIVER PROFILE: Recent Labs 12/22/24 1253 AST 16 ALT 6 BILITOT 0.4 ALKPHOS 65 PROT 7.2 PT/INR: No results for input(s): "PROTIME", "INR" in the last 72 hours. CARDIAC ENZYMES: No results for input(s): "TROPONINI" in the last 72 hours. Procalcitonin: No results found for: "PROCAL" COVID-19 PCR: No results for input(s): "COVID19" in the last 72 hours. Objective: Vitals: BP (!) 95/45 (BP Location: Left arm, Patient Position: Lying) Pulse 83 Temp 36.7 C (98 F) (Temporal) Resp 15 Ht 6' 7.02" (2.007 m) Wt 198 lb 6.6 oz (90 kg) SpO2 97% BMI 22.34 kg/m Pulse Ox: SpO2 Av.3 % Min: 92 % Max: 100 % Supplemental O2: Physical Exam HENT: Head: Normocephalic and atraumatic. Mouth/Throat: Mouth: Mucous membranes are moist. Cardiovascular: Rate and Rhythm: Normal rate and regular rhythm. Pulmonary: Effort: Pulmonary effort is normal. Abdominal: Palpations: Abdomen is soft. Skin: General: Skin is warm and dry. Comments: Lesion, check for image in media tab Neurological: Mental Status: He is alert. Psychiatric: Mood and Affect: Mood normal. Medications: Scheduled PRN acetaminophen, 1,000 mg, Oral, q6h enoxaparin, 40 mg, SubCUTAneous, Daily gabapentin, 300 mg, Oral, Nightly methadone, 10 mg, Oral, q8h piperacillin-tazobactam, 4,500 mg, IntraVENous, q6h sodium hypochlorite, , Irrigation, BID vancomycin, 15 mg/kg, IntraVENous, q12h PRN medications: acetaminophen OR acetaminophen, naloxone, ondansetron ODT OR ondansetron, oxyCODONE, polyethylene glycol (PEG) 3350 Continuous Assessment Data: (CAT1) Reviewed 2 notes from different specialty or health system (each=1). (CAT1) Reviewed 3 or more labs/studies ordered by another provider not previously counted (each=1, panels count as 1). (CAT1) Ordered 3 or more new labs and/or studies (each=1, panels count as 1). (LOW: 2x CAT1 or independent historian MOD: 3x CAT1 or 1x CAT3 EXTENSIVE: 3x CAT1 and 1x CAT3) Acute, acute on chronic, unstable/uncontrolled chronic problems/diagnoses: Septic shock Refractory Hidradenitis suppurative Gluteal abscess Leukocytosis Hypotension Pain Invasive squamous cell carcinoma Stable chronic problems affecting care, new non-acute diagnoses: Plan As a result of the above findings & factors, the following mgmt was pursued: - continue zosyn and vancomycin - continue fluids - follow BC - home gabapentin - prn oxycodone for pain - transfer to today - am labs, replace lytes prn - PT/OT/CM/SW - delirium precautions: increase activity, limit nighttime disturbances, and avoid anticholinergic meds, benzos, etc - DVT prophylaxis: encourage ambulation. Held for possible surgery Complexity: Acute illness or injury posing a threat to life or body function (HIGH). Risk: Advance Directive: Full Code Anticipated Discharge - Date -today - Location - Transfer to [facility] - Pending the following -transfer to Total time spent (which include face to face and non face to face encounters) : More than 30 minutes Extended Emergency Contact Information Primary Emergency Contact: Omkar La Mobile Relation: Brother Arben Fernandez MD Division of Hospital Medicine Inpatient Medical Services/[facility] Pharmacy to Dose Vancomycin - Progress Note Lab Results Component Value Date CREATININE 1.04 12/24/2024 BUN 7 (L) 12/24/2024 WBC 14.8 (H) 12/24/2024 Doses, serum creatinine, and vancomycin levels interfaced automatically to Backtrace I/O and data has been analyzed and interpreted. Infectious Diagnosis: SSTI Est CrCl: 107 mL/min (Cockcroft-Gault) Assessment: Current regimen vancomycin 1250 mg every 12 hours (13.9 mg/kg) Predicted AUC = 506 mg/L*hr (goal 400-600 mg/L*hr) PAUC = 77% (probability that AUC is >400 mg/L*hr) Pconc = 18% (probability that Ctrough is above 20 mcg/mL (toxicity)) Plan: Is the current dose therapeutic? [x] Yes - obtain next level on 12/25 unless predicted AUC is sub-/supra-therapeutic or change in serum creatinine. Trend serum creatinine. Trend AUC using Bayesian Modeling. Orders placed. DATE: 12/24/24 TIME: 8:37 AM Diana Warren PharmD Clinical Pharmacist Available via Secure Chat Images from the original note were not included. Pharmacy Managed Vancomycin Dosing Service Consult Note Consult Date: 12/23/24 Patient Name: Kevan La Allergies: Banana Age: 49 y.o. Sex: male Estimated body mass index is 22.19 kg/m as calculated from the following: Height as of this encounter: 2.007 m (6' 7"). Weight as of this encounter: 89.4 kg (197 lb). DW: 89 kg Lab Results Component Value Date CREATININE 1.16 12/22/2024 CREATININE 1.17 12/07/2024 BUN 11 12/22/2024 BUN 14 12/07/2024 WBC 19.4 (H) 12/22/2024 WBC 12.0 (H) 12/07/2024 Calculated CrCl: 95 mL/min (Cockcroft-Gault) Consulted By: Clarita Hay Infectious Diagnosis: SSTI (AUC Goal 400-600 mg/L*hr) Random Vancomycin Level Due: 12/25 Antimicrobials: Patient recently received an antibiotic (last 12 hours) Date/Time Action Medication Dose Rate 12/23/24 0924 New Bag piperacillin-tazobactam (Zosyn) IVPB 4,500 mg 4,500 mg 200 mL/hr 12/23/24 0417 New Bag piperacillin-tazobactam (Zosyn) IVPB 4,500 mg 4,500 mg 200 mL/hr Assessment/Plan: Doses, serum creatinine, and vancomycin levels interfaced automatically to Backtrace I/O and data has been analyzed and interpreted. Start Vancomycin 1250 mg every 12 hours based on patient age, weight, renal function, and infectious diagnosis (14 mg/kg). Predicted AUC = 549 mg/L*hr (goal 400-600 mg/L*hr) PAUC = 88% (probability that AUC is >400 mg/L*hr) Pconc = 24% (probability that Ctrough is above 20 mcg/mL (toxicity)) Will assess random level on 12/25 and adjust as appropriate. Trend serum creatinine. Orders placed. Thank you for this consult. Please secure text or call with questions. DATE: 12/23/24 TIME: 10:19 AM Sharron Ramon PharmD Clinical Pharmacist Available via Secure Chat documented in this encounter [facility] 12-24-2024 Note Discharge Summary Kevan La : 1975 ADMIT DATE: 12/22/2024 DISCHARGE DATE: 12/24/2024 PRIMARY CARE PHYSICIAN: No primary care provider on file. VISIT STATUS: Admission CODE STATUS: Full Code DISCHARGE DIAGNOSES: Principal Problem: Sepsis, due to unspecified organism, unspecified whether acute organ dysfunction present (HCC) HOSPITAL COURSE: Kevan is a 49 y.o. male with past medical history of chronic hidradenitis and recent squamous cell carcinoma presents with acute on chronic wound in septic shock. Initial vitals 89/54. Labs sig or WBC 19, LA 1.7. BC taken Received zosyn, vancomycin and fluids. Required levophed but is now off of. [facility] accepted him but waiting on bed until later this afternoon. He was boarded in our ED for 16hrs. Seen at bedside. Wounds are foul smelling. Pt states he was dropped off here from [facility] as it was the closest hospital. All his doctors including derm, surgery are at . Admitted for further evaluation and management. accepted the patient, bed available today, patient will be discharged to today Interval History: 12/24/2024-No overnight issues. Patient is seen and examined He is resting in his bed His blood pressure in lower side, oxycodone 5 mg given in 2 times instead of 20 mg once Labs reviewed WBC 14.8, improving, hemoglobin 7.1, worsening Case and plan discussed with patient and bedside nurse. All questions answered. Past Medical History: Medical History No past medical history on file. Adult diet Regular 24HR INTAKE/OUTPUT: Intake/Output Summary (Last 24 hours) at 12/24/2024 1114 Last data filed at 12/24/2024 0855 Gross per 24 hour Intake 1400 ml Output 2150 ml Net -750 ml LABS: CBC: Recent Labs 12/22/24 1253 12/24/24 0617 WBC 19.4* 14.8* RBC 3.33* 2.89* HGB 8.4* 7.1* HCT 26.8* 23.0* MCV 80.5 79.6 RDW 17.3* 17.5* PLT 698* 577* BMP: Recent Labs 12/22/24 1253 12/24/24 0459 NA 132* 139 K 4.0 3.7 CL 98 108* CO2 24 24 BUN 11 7* CREATININE 1.16 1.04 GLUCOSE 108* 97 CALCIUM 11.2* 10.3* ANIONGAP 10 7 LIVER PROFILE: Recent Labs 12/22/24 1253 AST 16 ALT 6 BILITOT 0.4 ALKPHOS 65 PROT 7.2 PT/INR: No results for input(s): "PROTIME", "INR" in the last 72 hours. CARDIAC ENZYMES: No results for input(s): "TROPONINI" in the last 72 hours. Procalcitonin: No results found for: "PROCAL" COVID-19 PCR: No results for input(s): "COVID19" in the last 72 hours. Objective: Vitals: BP (!) 95/45 (BP Location: Left arm, Patient Position: Lying) Pulse 83 Temp 36.7 ?C (98 ?F) (Temporal) Resp 15 Ht 6' 7.02" (2.007 m) Wt 198 lb 6.6 oz (90 kg) SpO2 97% BMI 22.34 kg/m? Pulse Ox: SpO2 Av.3 % Min: 92 % Max: 100 % Supplemental O2: Physical Exam HENT: Head: Normocephalic and atraumatic. Mouth/Throat: Mouth: Mucous membranes are moist. Cardiovascular: Rate and Rhythm: Normal rate and regular rhythm. Pulmonary: Effort: Pulmonary effort is normal. Abdominal: Palpations: Abdomen is soft. Skin: General: Skin is warm and dry. Comments: Lesion, check for image in media tab Neurological: Mental Status: He is alert. Psychiatric: Mood and Affect: Mood normal. Medications: Scheduled PRN Scheduled Meds acetaminophen, 1,000 mg, Oral, q6h enoxaparin, 40 mg, SubCUTAneous, Daily gabapentin, 300 mg, Oral, Nightly methadone, 10 mg, Oral, q8h piperacillin-tazobactam, 4,500 mg, IntraVENous, q6h sodium hypochlorite, , Irrigation, BID vancomycin, 15 mg/kg, IntraVENous, q12h PRN Meds PRN medications: acetaminophen OR acetaminophen, naloxone, ondansetron ODT OR ondansetron, oxyCODONE, polyethylene glycol (PEG) 3350 Continuous Continuous Meds Assessment Data: (CAT1) Reviewed 2 notes from different specialty or health system (each=1). (CAT1) Reviewed 3 or more labs/studies ordered by another provider not previously counted (each=1, panels count as 1). (CAT1) Ordered 3 or more new labs and/or studies (each=1, panels count as 1). (LOW: 2x CAT1 or independent historian MOD: 3x CAT1 or 1x CAT3 EXTENSIVE: 3x CAT1 and 1x CAT3) Acute, acute on chronic, unstable/uncontrolled chronic problems/diagnoses: Septic shock Refractory Hidradenitis suppurative Gluteal abscess Leukocytosis Hypotension Pain Invasive squamous cell carcinoma Stable chronic problems affecting care, new non-acute diagnoses: Plan As a result of the above findings & factors, the following mgmt was pursued: - continue zosyn and vancomycin - continue fluids - follow BC - home gabapentin - prn oxycodone for pain - transfer to today SIGNIFICANT DIAGNOSTIC STUDIES: XR hip left 2 or 3 views [[id number]] Collected: 12/22/24 1330 Order Status: Completed Updated: 12/22/24 1334 Narrative: Patient Name: KEVAN LA : 1975 Exam Date/Time: 12/22/2024 13 (more content not included)... [facility] 12-24-2024 Hospital course Narrative Discharge Summary Kevan La : 1975 ADMIT DATE: 12/22/2024 DISCHARGE DATE: 12/24/2024 PRIMARY CARE PHYSICIAN: No primary care provider on file. VISIT STATUS: Admission CODE STATUS: Full Code DISCHARGE DIAGNOSES: Principal Problem: Sepsis, due to unspecified organism, unspecified whether acute organ dysfunction present (HCC) HOSPITAL COURSE: Kevan is a 49 y.o. male with past medical history of chronic hidradenitis and recent squamous cell carcinoma presents with acute on chronic wound in septic shock. Initial vitals 89/54. Labs sig or WBC 19, LA 1.7. BC taken Received zosyn, vancomycin and fluids. Required levophed but is now off of. [facility] accepted him but waiting on bed until later this afternoon. He was boarded in our ED for 16hrs. Seen at bedside. Wounds are foul smelling. Pt states he was dropped off here from [facility] as it was the closest hospital. All his doctors including derm, surgery are at . Admitted for further evaluation and management. accepted the patient, bed available today, patient will be discharged to today Interval History: 12/24/2024-No overnight issues. Patient is seen and examined He is resting in his bed His blood pressure in lower side, oxycodone 5 mg given in 2 times instead of 20 mg once Labs reviewed WBC 14.8, improving, hemoglobin 7.1, worsening Case and plan discussed with patient and bedside nurse. All questions answered. Past Medical History: Medical History No past medical history on file. Adult diet Regular 24HR INTAKE/OUTPUT: Intake/Output Summary (Last 24 hours) at 12/24/2024 1114 Last data filed at 12/24/2024 0855 Gross per 24 hour Intake 1400 ml Output 2150 ml Net -750 ml LABS: CBC: Recent Labs 12/22/24 1253 12/24/24 0617 WBC 19.4* 14.8* RBC 3.33* 2.89* HGB 8.4* 7.1* HCT 26.8* 23.0* MCV 80.5 79.6 RDW 17.3* 17.5* PLT 698* 577* BMP: Recent Labs 12/22/24 1253 12/24/24 0459 NA 132* 139 K 4.0 3.7 CL 98 108* CO2 24 24 BUN 11 7* CREATININE 1.16 1.04 GLUCOSE 108* 97 CALCIUM 11.2* 10.3* ANIONGAP 10 7 LIVER PROFILE: Recent Labs 12/22/24 1253 AST 16 ALT 6 BILITOT 0.4 ALKPHOS 65 PROT 7.2 PT/INR: No results for input(s): "PROTIME", "INR" in the last 72 hours. CARDIAC ENZYMES: No results for input(s): "TROPONINI" in the last 72 hours. Procalcitonin: No results found for: "PROCAL" COVID-19 PCR: No results for input(s): "COVID19" in the last 72 hours. Objective: Vitals: BP (!) 95/45 (BP Location: Left arm, Patient Position: Lying) Pulse 83 Temp 36.7 C (98 F) (Temporal) Resp 15 Ht 6' 7.02" (2.007 m) Wt 198 lb 6.6 oz (90 kg) SpO2 97% BMI 22.34 kg/m Pulse Ox: SpO2 Av.3 % Min: 92 % Max: 100 % Supplemental O2: Physical Exam HENT: Head: Normocephalic and atraumatic. Mouth/Throat: Mouth: Mucous membranes are moist. Cardiovascular: Rate and Rhythm: Normal rate and regular rhythm. Pulmonary: Effort: Pulmonary effort is normal. Abdominal: Palpations: Abdomen is soft. Skin: General: Skin is warm and dry. Comments: Lesion, check for image in media tab Neurological: Mental Status: He is alert. Psychiatric: Mood and Affect: Mood normal. Medications: Scheduled PRN Scheduled Meds acetaminophen, 1,000 mg, Oral, q6h enoxaparin, 40 mg, SubCUTAneous, Daily gabapentin, 300 mg, Oral, Nightly methadone, 10 mg, Oral, q8h piperacillin-tazobactam, 4,500 mg, IntraVENous, q6h sodium hypochlorite, , Irrigation, BID vancomycin, 15 mg/kg, IntraVENous, q12h PRN Meds PRN medications: acetaminophen OR acetaminophen, naloxone, ondansetron ODT OR ondansetron, oxyCODONE, polyethylene glycol (PEG) 3350 Continuous Continuous Meds Assessment Data: (CAT1) Reviewed 2 notes from different specialty or health system (each=1). (CAT1) Reviewed 3 or more labs/studies ordered by another provider not previously counted (each=1, panels count as 1). (CAT1) Ordered 3 or more new labs and/or studies (each=1, panels count as 1). (LOW: 2x CAT1 or independent historian MOD: 3x CAT1 or 1x CAT3 EXTENSIVE: 3x CAT1 and 1x CAT3) Acute, acute on chronic, unstable/uncontrolled chronic problems/diagnoses: Septic shock Refractory Hidradenitis suppurative Gluteal abscess Leukocytosis Hypotension Pain Invasive squamous cell carcinoma Stable chronic problems affecting care, new non-acute diagnoses: Plan As a result of the above findings & factors, the following mgmt was pursued: - continue zosyn and vancomycin - continue fluids - follow BC - home gabapentin - prn oxycodone for pain - transfer to today SIGNIFICANT DIAGNOSTIC STUDIES: XR hip left 2 or 3 views [[id number]] Collected: 12/22/241329 Order Status: Completed Updated: 12/22/241333 Narrative: [facility] 1975 [id number] Exam Date/Time: 12/22/2024 13:20 Procedure: XR HIP 2 OR 3 VW LEFT Ordering Provider: LEON NICOLE Reason For Exam: evaluate for free air EXAMINATION: XR left hip. EXAM DATE & TIME: 12/22/2024 1:20 PM EDT INDICATION: evaluate for free air ADDITIONAL INFORMATION: 49-year-old male with left hip pain presents for evaluation COMPARISON: CT pelvis dated 12/06/2024 TECHNIQUE: AP and frog-leg lateral views of the left hip were obtained. FINDINGS: No acute fracture or traumatic dislocation is identified. There are mild degenerative changes of the hips. Bones are osteopenic. Dense stool, possibly mixed with contrast projects over the pelvis. Irregular soft tissue heterogeneity and subcutaneous emphysema is present involving the left thigh soft tissues. Impression: 1. Irregular soft tissue heterogeneity and subcutaneous emphysema projecting of the left thigh soft tissues. Patient was noted to have an abscess in this region on prior CT. Consider follow-up cross-sectional imaging. 2. No acute osseous abnormality identified. Report Dictated on Electronically Signed By: Jamison Covarrubias MD Electronically Signed Date/Time: 12/22/2024 1:33 PM EDT XR chest 1 view [[id number]] Collected: 12/22/24 1323 Order Status: Completed Updated: 12/22/24 1326 Narrative: [facility]: [facility]EVAN LA : 1975 [id number] Exam Date/Time: 12/22/2024 13:20 Procedure: XR CHEST 1 VIEW Ordering Provider: LEON NICOLE Reason For Exam: concern for sepsis EXAM TYPE: RADIOLOGIC EXAMINATION, CHEST, SINGLE VIEW FRONTAL (CXR SINGLE VIEW) EXAM DATE AND TIME: 12/22/2024 1:20 PM EDT INDICATION: Concern for sepsis COMPARISON: 09/12/2024 TECHNIQUE: A single portable frontal view of the thorax was obtained and reviewed. Special views: None. Impression: 1. Lines/Tubes/Devices/Hardware: Leads noted. Please confirm position and function of any catheters or attempted catheters clinically. 2. Lungs: No convincing acute process.. Consider follow-up with PA and lateral chest for persistent symptoms. 3. Pleura: No convincing significant effusion. No significant pneumothorax. 4. Heart and mediastinum: No convincing acute process. 5. Upper abdomen: No acute process seen. 6. Thorax:No acute bony process Report Dictated on Electronically Signed By: Fidel Navas MD Electronically Signed Date/Time: 12/22/2024 1:25 PM EDT FL modified barium with video and speech [[id number]] Collected: 12/16/24 1515 Order Status: Completed Updated: 12/22/24 1150 Narrative: Interpreted By: Jayson Abdi and Patriarca Hannah STUDY: FL MODIFIED BARIUM SWALLOW STUDY;; 12/16/2024 9:38 am INDICATION: Signs/Symptoms:r/o any dysphagia. COMPARISON: None. ACCESSION NUMBER(S): [id number] ORDERING CLINICIAN: GIBSON MENDIOLA TECHNIQUE: MBSS completed. Informed verbal consent obtained prior to completion of exam. Trials of thin, nectar thick, puree, and regular solids given. Fluoroscopy time : 1.8 minutes. Total of 2800 images were provided for review. 100 mL barium contrast. SCREWHEAD POLISHER: Makayla Dunham Phone/Pager: [employer] SPEECH FINDINGS: Patient Name: Kevan La : 1975 Today's Date: 12/16/24 Start Time: 845 Stop Time: 915 Time Calculation (min): 30 min Modified Barium Swallow Study completed. Informed verbal consent obtained prior to completion of exam. Trials of thin liquid, mildly thick liquid, puree, and solids were given. SCREWHEAD POLISHER: MINDY Camp Contact info: [employer] Reason for Referral: C/f aspiration/oropharyngeal dysphagia Patient Hx: Kevan La is a 49 y.o. male with history of hidradenitis supprativa refractory to numerous medications, invasive SCC dx in Oct 2024 both affecting the LLE who was transferred to [facility] due to concerns for worsening infection in the LLE. Pt is stable with no s/s of systemic infection. High suspicion for necrotic oncologic mass over fluid collection. No indication for I&D. Requested outside images from rads op, recommend requesting radiology overread. Consider MRI to further evaluation of soft tissue/mass Respiratory Status: Room air Current diet: Easy to Chew Solids and Thin Liquids Pain: Endorses gluteal pain, poor positioning because of this. DIET RECOMMENDATIONS: - Easy to Chew (IDDSI Level 7) - Thin liquids (IDDSI Level 0) STRATEGIES: Upright for all PO intake Remain upright for 20-30 min after eating Small bites/sips Alternate food and liquids SCREWHEAD POLISHER PLAN: Skilled SCREWHEAD POLISHER Services: Skilled SCREWHEAD POLISHER intervention for dysphagia is warranted. SCREWHEAD POLISHER Frequency: 2x per week Duration: 1-2 weeks Treatment/Interventions: - Diet tolerance/advancement Discussed POC: patient Discussed Risks/Benefits: Yes Patient/Caregiver Agreeable: Yes Short term goals established: Pt will tolerate least restrictive diet with no overt clinical s/s aspiration 100% of the time. Start Date: 12/15/24 End Date: 01/15/25 Status: Progressing Education Provided: Results and recommendations per MBSS, with video review; recommendations and POC at this time. Verbal understanding and agreement given on all accounts. Treatment Provided Today: SCREWHEAD POLISHER provided extensive education and training to pt/pt family regarding anatomy/physiology of swallow function, risk factors of aspiration/aspiration pna & how to mitigate factors, diet modifications, and the use of compensatory swallow strategies to promote pt safety upon PO intake. Additional Medical Consults Suggested: N/A Repeat Study: N/A Mechanics of the Swallow Summary: ORAL PHASE: Lip Closure - Intact Tongue Control During Bolus Hold - Intact Bolus prep/mastication - Impaired Bolus transport/lingual motion - Intact Oral residue - absent PHARYNGEAL PHASE: Initiation of pharyngeal swallow - Impaired Soft palate elevation - Intact Laryngeal elevation - Intact Anterior hyoid excursion - Intact Epiglottic movement - Impaired Laryngeal vestibule closure - Impaired Pharyngeal stripping wave - Intact Pharyngeal contraction (A/P view) - Not tested Pharyngoesophageal segment opening - Intact Tongue base retraction - Intact Pharyngeal residue - absent ESOPHAGEAL PHASE: Esophageal clearance - Intact *Of note: The A-P bolus follow-through is not intended to be utilized as a diagnostic assessment of the esophagus, rather a tool to observe the biomechanical aspects of the swallow continuum and to inform the need for further evaluation by medical specialists, as applicable. SCREWHEAD POLISHER Impressions with Severity Rating: Pt presenting with mild oropharyngeal dysphagia. Given trials of thin liquid, mildly thick liquid, puree, and soft solids. During straw sips of thin and mildly thick liquids, pt penetrated however remained above the vocal folds with minimal residues present. No penetration/aspiration seen with puree or solid consistencies. No significant residues present across trials. Oral Phase - Pt has adequate bolus formation, control, and A-P transit. Mastication and bolus formation for puree and solids is functional yet slightly prolonged (pt is edentulous). Pharyngeal Phase - Pt has slightly delayed swallow initiation e/b moderate amount of thin and mildly thick liquids reaching the level of the pyriform sinus at initiation of swallow. Intermittent limited inversion of the epiglottis and slightly reduced laryngeal vestibule closure at swallow onset results in penetration of min amounts of thin liquids and mildly thick liquids during the swallow. No contact to the vocal folds and min amount of residues. Esophageal Phase - Oblique view obtained, suspect within normal limits for clearance SCREWHEAD POLISHER recommends cautious initiation of thin liquids and easy to chew diet. See additional PO intake guidelines outlined below. If pt demonstrates any change/decline in medical/mental/respiratory status please make NPO and alert SCREWHEAD POLISHER. Will continue to follow while in acute care setting to ensure diet tolerance and use of safe swallow guidelines. MD aware of recommendations Rosenbek's Penetration Aspiration Scale Thin Liquids: 3. PENETRATION with LOW ASPIRATION risk - contrast remains above vocal cords, visible residue [place] Thick Liquids: 3. PENETRATION with LOW ASPIRATION risk - contrast remains above vocal cords, visible residue Puree: 1. NO ASPIRATION & NO PENETRATION - no aspiration, contrast does not enter airway Solids: 1. NO ASPIRATION & NO PENETRATION - no aspiration, contrast does not enter airway Speech Therapy section of this report signed by Makayla Dunham on 12/16/2024 at 3:05 pm. RADIOLOGY FINDINGS: The included lateral cervical spine is unremarkable. Radiology section of this report signed by Jayson Abdi MD. Impression: Swallow evaluation as dictated above by speech pathology. I personally reviewed the images/study and I agree with the findings as stated by resident Dilan Hester. This study was interpreted at [place], [place]. MACRO: None Signed by: Jayson Abdi 12/16/2024 4:54 PM Dictation workstation: [id number] MR femur left w and wo IV contrast [[id number]] Collected: 12/12/24 1334 Order Status: Completed Updated: 12/22/24 1150 Narrative: Interpreted By: Kong Armijo and Lawrence Austen STUDY: MRI of the left femur with and without contrast dated 12/12/2024. INDICATION: Gluteal abscess/malignancy. Biopsy result of squamous cell carcinoma. History of chronic hidradenitis suppurativa. COMPARISON: None. Correlation is made with 12/06/2024 and 11/19/2024 CT examinations. ACCESSION NUMBER(S): [id number] ORDERING CLINICIAN: GIBSON MENDIOLA TECHNIQUE: Multiplanar multisequence MRI of the left femur was performed with and without intravenous gadolinium based contrast. FINDINGS: LIMITATIONS: Examination is limited due to the complexity of the soft tissue process discussed below. OSSEOUS STRUCTURES: No fracture or dislocation is evident. Bone marrow signal intensity is within normal limits. Degenerative changes of the knee with small joint effusion. ASSOCIATED SOFT TISSUES: Large heterogenous predominantly STIR hyperintense solid mass of the posterior left thigh soft tissues with diffuse peripheral enhancement and predominantly internal hypoenhancement measuring 7.5 X 15.0 x 10.0 cm. There are few foci of air within the mass without a discrete fluid collection. The mass is mostly within the subcutaneous soft tissues with involvement of the skin and large multifocal overlying skin ulceration. There is adjacent diffuse soft tissue edema and skin thickening. The anterior aspect of the mass appears to involve the inferior gluteus randell muscle and the posterior aspect of the hamstrings musculature with some intramuscular enhancement/edema and involvement of the proximal hamstring tendons. The greatest degree of muscle invasion appears to be into the gluteus randell muscle. There is thickening of the skin of the left gluteal region extending to the lateral thigh, and extending inferiorly into the thigh with multiple scattered foci of high T2 low T1 signal intensity within the skin such as seen at image 6, 17, 20, 27, 30, 35, and 41 of the axial plane some are also seen laterally such as at image 9 in the axial plane. Some of these foci have rim enhancement. There is inguinal lymphadenopathy with the largest lymph node measuring up to approximately 1.4 x 3.1 cm. There are iliac chain lymph nodes with the largest measuring up to approximately 1.8 x 2.9 cm. There is a prominent lymph node in the perirectal/ischioanal fat measuring a proximally 0.9 x 0.9 cm such is seen image 65 of the axial plane. There is a nodule adjacent to the sciatic neurovascular bundle seen at image 8 in the axial plane measuring a proximally 0.5 x 0.8 cm. Another nodule is seen adjacent to the posterior surface of the proximal femoral metadiaphysis seen image 40 of the axial plane measuring 0.8 x 1.3 cm. Additional abnormal appearing lymph nodes adjacent to the left sciatic neurovascular bundle adjacent to the greater sciatic foramen and posterior to the mid femur. Mild feathery increased T2 signal intensity is seen in the adductor musculature. Reticular increased T2 signal intensity is seen in the subcutaneous tissues with reticular post-contrast enhancement. The sciatic neurovascular bundle appears to be spared at this time. Multiple outpouchings of the posterior urinary bladder, partially visualized and likely presenting diverticuli. Impression: 1. Complex process involving the soft tissues of the posterior proximal thigh most compatible with a combination of large ulcerating mass (Marjolin's ulcer) centered in the subcutaneous tissues with underlying involvement of at least the gluteus randell and posterior aspects of the proximal hamstrings muscle/tendons superimposed on hidradenitis suppurativa of the left gluteal skin and thigh with associated cellulitis. It is difficult to clearly separate what in the skin is hidradenitis suppurativa and malignancy due to the invasive nature of the mass. Foci of gas are seen within the mass which could be related to open nature of process, recent intervention, and/or infection of the mass. 2. Inguinal, internal iliac chain, perirectal/ischioanal lymphadenopathy and prominent lymph node along the sciatic neurovascular bundle. This may represent reactive and/or malignant lymphadenopathy. Small nodule along the posterior proximal surface of the femoral metadiaphysis may represent an additional lymph node versus a satellite nodule of malignancy. 3. Nonspecific edema in the adductor musculature, possibly reactive in nature. MACRO: None Signed by: Kong Armijo 12/12/2024 1:33 PM Dictation workstation: [id number] MR femur left wo IV contrast [[id number]] Collected: 12/12/24 1320 Order Status: Completed Updated: 12/22/24 1150 Narrative: Interpreted By: Kong Armijo and Mason Montague STUDY: MRI of the left femur with and without contrast dated 12/10/2024. 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 History of chronic hidradenitis suppurativa. COMPARISON: Correlation is made with 12/06/2024 and 11/19/2024 CT examinations. ACCESSION NUMBER(S): [id number] ORDERING CLINICIAN: TOYA RUBIO TECHNIQUE: Multiplanar multisequence MRI of the left femur was performed with and without intravenous gadolinium based contrast. FINDINGS: No images were obtained as the patient was unable to cooperate for the exam. Impression: No images were obtained as the patient was unable to cooperate for the exam. MACRO: None Signed by: Kong Armijo 12/12/2024 1:18 PM Dictation workstation: [id number] CT pelvis w IV contrast [[id number]] Collected: 12/06/24 1324 Order Status: Completed Updated: 12/06/24 1330 Narrative: Patient Name: KEVAN LA : 1975 Exam Date/Time: 12/06/2024 12:46 Procedure: CT PELVIS W IV CONTRAST Ordering Provider: HOLLINS MICHAEL Reason For Exam: large left hip and upper thigh wounds, concern for possible osteomyelitis Examination: CT pelvis Indication: large left hip and upper thigh wounds, concern for possible osteomyelitis Technique: Axial CT images of the pelvis were obtained at 1 mm intervals following intravenous contrast administration of 75 mL Isovue-370. Sagittal and coronal reconstructions were reviewed as well. Dose reduction was employed with automatic exposure control. Findings: Large fluid collection present within the proximal left upper thigh measuring 8.5 x 8.4 cm in axial dimension and 16.5 cm in length. There is a large overlying wound with cutaneous thickening and subcutaneous edema. There is at least moderate joint space loss of the bilateral sacroiliac joints. Probable few small bladder diverticula present, posteriorly. Impression: Impression: Large wound along the proximal posterior thigh with large abscess within the posterior compartment of the left upper thigh. There is also presumed cellulitis. No obvious acute cortical erosion. Please note, the marrow is not assessed on a CT examination. Report Dictated on Electronically Signed By: Tess Carter MD Electronically Signed Date/Time: 12/06/2024 1:29 PM EDT CONSULTANTS: Wound care RECOMMENDED NEXT STEPS: Transfer to DISCHARGE MEDICATIONS: Medication List START taking these medications methadone 10 MG tablet Commonly known as: Dolophine Take 1 tablet (10 mg) by mouth every 8 hours for 5 days. oxyCODONE 20 MG immediate release tablet Commonly known as: Roxicodone Take 1 tablet (20 mg) by mouth every 4 hours as needed for severe pain (7-10) for up to 5 days. Vancomycin HCl in NS 1.25-0.9 GM/250ML-% solution Commonly known as: Vancocin Infuse 250 mL (1,250 mg) into a venous catheter every 12 hours. CONTINUE taking these medications cholecalciferol 200 Unit tablet split tablet Commonly known as: Vitamin D3 ferrous sulfate 325 (65 Fe) MG EC tablet gabapentin 300 MG capsule Commonly known as: Neurontin melatonin 3 MG tablet Take 1 tablet (3 mg) by mouth Nightly as needed for sleep. naloxone 0.4 MG/ML injection Commonly known as: Narcan Infuse 1 mL (0.4 mg) into a venous catheter as needed for opioid reversal. ondansetron 4 MG/2ML injection Commonly known as: Zofran Infuse 2 mL (4 mg) into a venous catheter every 6 hours as needed for nausea or vomiting. piperacillin-tazobactam 3-0.375 GM/50ML IVPB Commonly known as: Zosyn Infuse 50 mL (3.375 g) into a venous catheter every 8 hours. STOP taking these medications vancomycin 1,000 mg in sodium chloride 0.9 % 250 mL IVPB Where to Get Your Medications Information about where to get these medications is not yet available Ask your nurse or doctor about these medications methadone 10 MG tablet oxyCODONE 20 MG immediate release tablet Vancomycin HCl in NS 1.25-0.9 GM/250ML-% solution DIET: Adult diet Regular ACTIVITY: No restriction. COMPLEXITY OF FOLLOW UP: [] Moderate Complexity: follow up within 7-14 calendar days (09987) [] Severe Complexity: follow up within 7 calendar days (35786) FOLLOW UP TESTING, PENDING RESULTS OR REFERRALS AT TRANSITIONAL CARE VISIT: [] Yes [] No PENDING STUDIES: DISPOSITION: Transfer to Acute Care Hospital FACILITY/HOME CARE AGENCY NAME: Follow up with No follow-up provider specified. INSTRUCTIONS TO MA/SW: Please call patient on day after discharge (must document patient contacted within 2 business days of discharge). FOLLOW UP QUESTIONS FOR MA/SW: 1. Did you get medications filled and taking them as instructed from discharge? 2. Are you following your discharge instructions from your hospital stay? 3. Please confirm patient is scheduled for a follow up appointment within the above time frame. DISCHARGE TIME: 30.5 minutes SIGNED: Arben Fernandez MD 12/24/2024, 10:10 AM documented in this encounter [facility] 12-24-2024 Nurse Note See new oxy 5 mg one time dose order [facility] 12-24-2024 Nurse Note See new oxy 5 mg one time dose order Attending secure chatted due to patient asking for PRN pain meds with soft BP's. Awaiting answer Called and this nurse gave report to Lori NEWTON for patient. P/U time still 1230. Patient updated. Call received from . Patient has bed waiting at [facility] room [facility]. Nurse to nurse report number [phone]. Social work to arrange transportation in AM. Patient notified documented in this encounter [facility] 12-24-2024 Nurse Note Attending secure chatted due to patient asking for PRN pain meds with soft BP's. Awaiting answer [facility] 12-24-2024 Nurse Note Called and this nurse gave report to Lori NEWTON for patient. P/U time still 1230. Patient updated. [facility] 12-24-2024 Note Pharmacy to Dose Van comycin - Progress Note Lab Results Component Value Date CREATININE 1.04 12/24/2024 BUN 7 (L) 12/24/2024 WBC 14.8 (H) 12/24/2024 Doses, serum creatinine, and vancomycin levels interfaced automatically to Backtrace I/O and data has been analyzed and interpreted. Infectious Diagnosis: SSTI Est CrCl: 107 mL/min (Cockcroft-Gault) Assessment: Current regimen vancomycin 1250 mg every 12 hours (13.9 mg/kg) Predicted AUC = 506 mg/L*hr (goal 400-600 mg/L*hr) PAUC = 77% (probability that AUC is >400 mg/L*hr) Pconc = 18% (probability that Ctrough is above 20 mcg/mL (toxicity)) Plan: Is the current dose therapeutic? [x] Yes - obtain next level on 12/25 unless predicted AUC is sub-/supra-therapeutic or change in serum creatinine. Trend serum creatinine. Trend AUC using Bayesian Modeling. Orders placed. DATE: 12/24/24 TIME: 8:37 AM Diana Warren PharmD Clinical Pharmacist Available via [employer] [facility] 12-24-2024 Plan of care note Problem: Knowledge Deficit Goal: Patient/family/caregiver demonstrates understanding of disease process, treatment plan, medications, and discharge instructions 12/24/2024104 by Diana Wise RN Outcome: Progressing 12/24/2024103 by Diana Wise RN Outcome: Progressing 12/23/20242013 by Diana Wise RN Outcome: Progressing Problem: Urinary Incontinence Goal: Perineal skin integrity is maintained or improved 12/24/2024104 by Diana Wise RN Outcome: Progressing 12/24/2024103 by Diana Wsie RN Outcome: Progressing 12/23/20242013 by Diana Wise RN Outcome: Progressing Problem: Potential for Falls Goal: I will remain free of falls 12/24/2024104 by Diana Wise RN Outcome: Progressing 12/24/2024103 by Diana Wise RN Outcome: Progressing 12/23/20242013 by Diana Wise RN Outcome: Progressing Problem: Discharge Barriers Goal: My discharge needs are met 12/24/2024104 by Diana Wise RN Outcome: Progressing 12/24/2024103 by Diana Wise RN Outcome: Progressing 12/23/20242013 by Diana Wise RN Outcome: Progressing Problem: Pain - Adult Goal: Verbalizes/displays adequate comfort level or baseline comfort level 12/24/2024104 by Diana Wise RN Outcome: Progressing 12/24/2024103 by Diana Wise RN Outcome: Progressing 12/23/20242013 by Diana Wise RN Outcome: Progressing Problem: Safety - Adult Goal: Free from fall injury 12/24/2024104 by Diana Wise RN Outcome: Progressing 12/24/2024103 by Diana Wise RN Outcome: Progressing 12/23/20242013 by Diana Wise RN Outcome: Progressing Flowsheets (Taken 12/23/20242009) Free from fall injury: Instruct family/caregiver on patient safety Based on caregiver fall risk screen, instruct family/caregiver to ask for assistance with transferring if caregiver noted to have fall risk factors Problem: Discharge Planning Goal: Discharge to home or other facility with appropriate resources 12/24/2024104 by Diana Wise RN Outcome: Progressing 12/24/2024103 by Diana Wise RN Outcome: Progressing 12/23/20242013 by Diana Wise RN Outcome: Progressing Problem: Chronic Conditions and Co-morbidities Goal: Patient's chronic conditions and co-morbidity symptoms are monitored and maintained or improved 12/24/2024104 by Diana Wise RN Outcome: Progressing 12/24/2024103 by Diana Wise RN Outcome: Progressing 12/23/20242013 by Diana Wise RN Outcome: Progressing [facility] 12-24-2024 Nurse Note Call received from . Patient has bed waiting at [facility] room [facility]. Nurse to nurse report number [phone]. Social work to arrange transportation in AM. Patient notified T [facility] 12-23-2024 Plan of care note Problem: Knowledge Deficit Goal: Patient/family/caregiver demonstrates understanding of disease process, treatment plan, medications, and discharge instructions Outcome: Progressing Problem: Potential for Compromised Skin Integrity Goal: Skin Integrity is Maintained or Improved Outcome: Progressing Goal: Nutritional status is improving Outcome: Progressing Problem: Potential for Falls Goal: I will remain free of falls Outcome: Progressing Problem: Pain - Adult Goal: Verbalizes/displays adequate comfort level or baseline comfort level Outcome: Progressing Problem: Pain - Adult Goal: Verbalizes/displays adequate comfort level or baseline comfort level Outcome: Progressing Problem: Chronic Conditions and Co-morbidities Goal: Patient's chronic conditions and co-morbidity symptoms are monitored and maintained or improved Outcome: Progressing [facility] 12-23-2024 Consult note Associated Order (s): INPATIENT CONSULT TO CRITICAL CARE - MEDICAL TEAM Images from the original note were not included. Internal Medicine: MICU Initial Consult Name: Kevan La : 1975(49 y.o.) Date: 12/23/24 Attending: Dr. Stewart Subjective: Chief Complaint: Hypotension HPI: Mr. La is a 49 year old male with PMHx squamous cell carcinoma of L hip and hidradenitis suppurativa who presented to [facility] 12/22 from [facility] for increased drainage and malodor of L hip wound. He is awaiting transfer to [facility]. Of note, patient recently hospitalized at 12/07 - 12/17 and was discharged to [facility] on Augmentin through 01/12. He had a follow-up oncology appointment 12/20 with infusion of Cemiplimab. On presentation, vitals significant for BP 89/54, 77 bpm, 36.7 C. Initial laboratory work-up significant for WBC 19.4, LA 1.7, Ca 11.2. Blood cultures and wound cultures pending. Hip x-ray with no acute osseous abnormality. Patient received sepsis bolus at 30 ml/kg, and briefly required levophed for hypotension. Has been off levophed since 505. Patient is s/p 4 L fluid bolus, and is currently receiving continuous LR at 125 mL/hr. ICU consulted for persistent hypotension. On examination, patient denies any lightheadedness, dizziness, or chest pain. Reports tolerating PO intake today. His main complaint is L hip pain. He reports a history of low blood pressure, and states he has troubles with his pressure readings of his L arm. No past medical history on file. No past surgical history on file. No family history on file. Social History Socioeconomic History Marital status: Single Spouse name: Not on file Number of children: Not on file Years of education: Not on file Highest education level: Not on file Occupational History Not on file Tobacco Use Smoking status: Not on file Smokeless tobacco: Not on file Substance and Sexual Activity Alcohol use: Not on file Drug use: Not on file Sexual activity: Not on file Other Topics Concern Not on file Social History Narrative Not on file Social Drivers of Health Financial Resource Strain: Medium Risk (12/07/2024) Received from [facility] Overall Financial Resource Strain (CARDIA) Difficulty of Paying Living Expenses: Somewhat hard Food Insecurity: No Food Insecurity (12/07/2024) Received from [facility] Hunger Vital Sign Worried About Running Out of Food in the Last Year: Never true Ran Out of Food in the Last Year: Never true Recent Concern: Food Insecurity - Food Insecurity Present (10/11/2024) Received from [facility] Hunger Vital Sign Worried About Running Out of Food in the Last Year: Sometimes true Ran Out of Food in the Last Year: Sometimes true Transportation Needs: No Transportation Needs (12/07/2024) Received from [facility] PRAPARE - Transportation Lack of Transportation (Medical): No Lack of Transportation (Non-Medical): No Physical Activity: Not on file Stress: Not on file Social Connections: Not on file Intimate Partner Violence: Not At Risk (12/07/2024) Received from [facility] Humiliation, Afraid, Rape, and Kick questionnaire Fear of Current or Ex-Partner: No Emotionally Abused: No Physically Abused: No Sexually Abused: No Housing Stability: High Risk (12/07/2024) Received from [facility] Housing Stability Vital Sign Unable to Pay for Housing in the Last Year: Yes Number of Times Moved in the Last Year: 1 Homeless in the Last Year: No Allergies Allergen Reactions Banana Itching Prior to Admission medications Medication Sig Start Date End Date Taking? Authorizing Provider gabapentin (Neurontin) 300 MG capsule Take 300 mg by mouth 2 times daily. 11/27/24 11/27/25 Yes Historical Provider, cholecalciferol (Vitamin D3) 200 Unit tablet split tablet Take 10,000 Units by mouth daily. Historical Provider, ferrous sulfate 325 (65 Fe) MG EC tablet Take 1 tablet by mouth daily. Historical Provider, melatonin 3 MG tablet Take 1 tablet (3 mg) by mouth Nightly as needed for sleep. 11/09/24 Samson Farrar MD naloxone (Narcan) 0.4 MG/ML injection Infuse 1 mL (0.4 mg) into a venous catheter as needed for opioid reversal. 11/09/24 Samson Farrar MD ondansetron (Zofran) 4 MG/2ML injection Infuse 2 mL (4 mg) into a venous catheter every 6 hours as needed for nausea or vomiting. 11/09/24 Samson Farrar MD piperacillin-tazobactam (Zosyn) IVPB 3.375 g in 50 mL (premix) Infuse 50 mL (3.375 g) into a venous catheter every 8 hours. 11/09/24 Samson Farrar MD vancomycin 1,000 mg in sodium chloride 0.9 % 250 mL IVPB Infuse 1,000 mg into a venous catheter every 12 hours. 11/10/24 Samson Farrar MD Objective: Oxygen Delivery: VITALS: BP 97/51 Pulse 80 Temp 36.7 C (98 F) (Oral) Resp 19 Ht 6' 7" (2.007 m) Wt 197 lb (89.4 kg) SpO2 97% BMI 22.19 kg/m CURRENT PULSE OXIMETRY: SpO2: 97 % Review of Systems Cardiovascular: Negative for chest pain. Gastrointestinal: Negative for abdominal pain. Musculoskeletal: Positive for arthralgias and myalgias. Skin: Positive for wound. Neurological: Negative for dizziness and light-headedness. Constitutional: General Appearance []WDWN []Obese []Cachectic []Thin [x]Ill Eyes: Inspection of Pupils/Irises Pupils round and react: [x]Yes []No Sclera: []Icteric [x]Non-Icteric Inspection of Conjunctiva/Lids Conjunctiva: []Injected [x]Non-Injected Lids: [x]Intact []Lesion Present ENT/Mouth: External Inspection of ears/nose [x] Normal [] Scar/Lesion/Mass Inspection of teeth/lips/gums Dentition: [][place] Teeth []Dentures Lips/Gums: [x]Intact []Lesion Present Mucosa: [x][place] []Moist []Dry Neck: External Appearance Overall Appearance: [x]Normal []Lesion/Mass/Crepitus Present Trachea midline: [x]Yes []No Thyroid []Normal []Enlarged []Tender []Mass []Absent Respiratory: Respiratory effort []Labored [x]Non-Labored [] Mechanically-Ventilated Auscultation [x]Clear []Crackles []Wheezes []Rhonchi Cardiovascular: Auscultation Rate: [x]Regular []Irregular []Tachycardia []Bradycardia Rhythm: [x]Regular []Irregular Murmur: []Present []Absent Extremities Peripheral Edema: []Present [x]Absent Varicosities: []Present []Absent Gastrointestinal: Abdomen Palpation: [x]Soft []Firm []Tender []Non-Tender []Distended []Non-distended Mass: []Present []Absent Bowel Sounds: []Present []Absent Hernia: []Present []Absent Liver/Spleen: []Hepatosplenomegaly []Organomegaly Absent Musculoskeletal: Inspection of Digits and Nails Cyanosis: []Present [x]Absent Clubbing: []Present [x]Absent Ischemia: []Present []Absent Infection: []Present []Absent Extremities SHEPARD Equally: Except ([]RUE []RLE []LUE []LLE) Strength/Tone: Intact and Normal ([]RUE []RLE []LUE []LLE) Skin: Inspection []Normal []Rash [x]Lesion - L hip wound []Ulcer Palpation [x]Warm []Cool []Dry []Clammy []Nodules []Induration []Skin-tightening Cap-Refill: [] <3 sec [] >3 seconds (delayed) Neurologic: GCS EYE: 4 - Opens spontaneously GCS MOTOR: 6 - Obeys commands for movement GCS VERBAL: 5 - Oriented to person, place, time Total GCS: 15 [] Sensation grossly intact Psych: Mental Status Alert: [x]Yes [] No Oriented: []x0 []X1 []X2 [x]x3 Mood/Affect [x]Normal []Flat []Agitated []Depressed []Anxious []Calm []Sedated []NAD Select Labs within last 24 hours- BMP: Recent Labs 12/22/24 1253 NA 132* K 4.0 CL 98 CO2 24 BUN 11 CREATININE 1.16 CALCIUM 11.2* LFTs: Recent Labs 12/22/24 1253 12/22/24 1609 AST 16 -- ALT 6 -- PROT 7.2 -- ALBUMIN 2.6* -- BILITOT 0.4 -- BILIRUBINU -- Negative ALKPHOS 65 -- Glucose: Recent Labs 12/22/24 1253 GLUCOSE 108* Procal: No results for input(s): "PROCAL" in the last 72 hours. CBC: Recent Labs 12/22/24 1253 WBC 19.4* HGB 8.4* HCT 26.8* PLT 698* MCV 80.5 RDW 17.3* ABGs: No results for input(s): "PHART", "MKU5FHM", "PO2ART", "BYM7SCF", "SO2ART", "G4DLNNIG" in the last 72 hours. Lactic Acid: Recent Labs 12/22/24 1253 LACTATE 1.7 INR: No results for input(s): "INR" in the last 72 hours. Cardiac Injury Profile: No results for input(s): "CKTOTAL", "CKMB", "TROPONINI" in the last 72 hours. Labs in Last 3 months: Lab Results Component Value Date TSH 0.84 11/08/2024 Microbiology- Urine Cx: No results found for: URINECX Blood Cx: Lab Results Component Value Date BLOODCX No growth at 24 hours 12/22/2024 BLOODCX No growth at 24 hours 12/22/2024 Sputum Cx: No results found for: RESPCULT Gram Stain: Lab Results Component Value Date LABGRAM (A) 12/22/2024 Few Polymorphonuclear leukocytes per low power field LABGRAM Few Gram positive cocci (A) 12/22/2024 LABGRAM Moderate Gram positive bacilli (A) 12/22/2024 LABGRAM Few Gram negative bacilli (A) 12/22/2024 PNA PCR: No results found for: HUMANMETAPNE COVID19: No results found for: COVID19 Legionella Ag: No results found for: "LEGIONELLAPN" Strep Ag: No results for input(s): "STREPPNEUMO" in the last 72 hours. Imaging- XR hip left 2 or 3 views Final Result 1. Irregular soft tissue heterogeneity and subcutaneous emphysema projecting of the left thigh soft tissues. Patient was noted to have an abscess in this region on prior CT. Consider follow-up cross-sectional imaging. 2. No acute osseous abnormality identified. Report Dictated on Electronically Signed By: Jamison Covarrubias MD Electronically Signed Date/Time: 12/22/2024 1:33 PM EDT XR chest 1 view Final Result 1. Lines/Tubes/Devices/Hardware: Leads noted. Please confirm position and function of any catheters or attempted catheters clinically. 2. Lungs: No convincing acute process.. Consider follow-up with PA and lateral chest for persistent symptoms. 3. Pleura: No convincing significant effusion. No significant pneumothorax. 4. Heart and mediastinum: No convincing acute process. 5. Upper abdomen: No acute process seen. 6. Thorax:No acute bony process Report Dictated on Electronically Signed By: Fidel Navas MD Electronically Signed Date/Time: 12/22/2024 1:25 PM EDT Assessment and Plan: Principal Problem: Sepsis, due to unspecified organism, unspecified whether acute organ dysfunction present (HCC) Assessment: Squamous cell carcinoma of L hip, on Cemiplimab Hidradenitis suppurativa Gluteal abscess/wound of L hip Chronic hypotension Hypercalcemia Leukocytosis Chronic pain 2/2 known SCC L hip Plan: Patient with known history of chronic hypotension, repeat BP in R arm with MAP of 80. Patient stable for GMF, awaiting transfer to [facility] Re-check lactic acid, BMP to monitor hypercalcemia Recommend continuing broad spectrum Vancomycin and Zosyn, pending wound and blood cultures Recommending continuing current pain regimen Remainder per primary service GI Prophylaxis: N/A DVT Prophylaxis: Lovenox 40 q 24hr - creatinine clearance >30 BMI Classification: Body mass index is 22.19 kg/m . normal BMI 18.5-24.9 Disposition: Stable for GMF, awaiting transfer to [facility] Cosigned by Noah Stewart DO at 12/23/2024 7:11 PM EDT Associated attestation - Noah Stewart DO - 12/23/2024 7:11 PM EDT I have personally performed a [id number] diagnostic evaluation on this patient on date of service 12/23/24. History, labs, imaging studies, and electronic medical record have been reviewed by me. This note documented by the []Critical Care Fellow [x]nanny/household manager []BRITTNEY reflects my history, exam, and medical decision making. I have reviewed and agree with the care plan. Changes were made in the orders as necessary. ROS documentation was reviewed and negative unless otherwise stated in HPI. Additional pertinent interval history, ROS, and physical exam findings: AdmitDate = 12/22/2024 LOS: 0 Brought [facility] ER [facility] with concern for worsening left hip wound with inc in drainage and foul smell. Currently being treated for SCC of left hip/buttock. Has been accepted for transfer to but is awaiting bed availability. MICU was contacted d/t hypotension in the ER. Assessment: SCC left hip on Ctx. Hidradinitis supp. Gluteal abscess/wound -- present on admit. Chronic hypotension/soft BP Plan: Ok to remain on GMF at this time. Is currently off pressors and is hemodynamically stable with SBP in 90s and MAP in 70s on right arm. In addition, lactic has been normal and pt is asymptomatic while lying on ER gurney. At this time he has no other ICU requirements. Agree with ongoing Abx and support of euvolemia. Continue pain control regimen per medicine team. In my professional opinion this pt remains critically ill based on the aforementioned assessment/plan: No Disposition: remain GMF status for now Critical Care Time: 35min Or Noncritical Care Time: n/a Total time caring for this patient including direct patient contact, review of data including imaging and labs, discussions with other team members and physicians, excluding procedures. [employer] Phone: 12-23-2024 Consult note Associated Order (s): INPATIENT CONSULT TO CRITICAL CARE - MEDICAL TEAM Images from the original note were not included. Internal Medicine: MICU Initial Consult Name: Kevan La : 1975(49 y.o.) Date: 12/23/24 Attending: Dr. Stewart Subjective: Chief Complaint: Hypotension HPI: Mr. La is a 49 year old male with PMHx squamous cell carcinoma of L hip and hidradenitis suppurativa who presented to [facility] 12/22 from [facility] for increased drainage and malodor of L hip wound. He is awaiting transfer to [facility]. Of note, patient recently hospitalized at 12/07 - 12/17 and was discharged to [facility] on Augmentin through 01/12. He had a follow-up oncology appointment 12/20 with infusion of Cemiplimab. On presentation, vitals significant for BP 89/54, 77 bpm, 36.7 C. Initial laboratory work-up significant for WBC 19.4, LA 1.7, Ca 11.2. Blood cultures and wound cultures pending. Hip x-ray with no acute osseous abnormality. Patient received sepsis bolus at 30 ml/kg, and briefly required levophed for hypotension. Has been off levophed since 505. Patient is s/p 4 L fluid bolus, and is currently receiving continuous LR at 125 mL/hr. ICU consulted for persistent hypotension. On examination, patient denies any lightheadedness, dizziness, or chest pain. Reports tolerating PO intake today. His main complaint is L hip pain. He reports a history of low blood pressure, and states he has troubles with his pressure readings of his L arm. No past medical history on file. No past surgical history on file. No family history on file. Social History Socioeconomic History Marital status: Single Spouse name: Not on file Number of children: Not on file Years of education: Not on file Highest education level: Not on file Occupational History Not on file Tobacco Use Smoking status: Not on file Smokeless tobacco: Not on file Substance and Sexual Activity Alcohol use: Not on file Drug use: Not on file Sexual activity: Not on file Other Topics Concern Not on file Social History Narrative Not on file Social Drivers of Health Financial Resource Strain: Medium Risk (12/07/2024) Received from [facility] Overall Financial Resource Strain (CARDIA) Difficulty of Paying Living Expenses: Somewhat hard Food Insecurity: No Food Insecurity (12/07/2024) Received from [facility] Hunger Vital Sign Worried About Running Out of Food in the Last Year: Never true Ran Out of Food in the Last Year: Never true Recent Concern: Food Insecurity - Food Insecurity Present (10/11/2024) Received from [facility] Hunger Vital Sign Worried About Running Out of Food in the Last Year: Sometimes true Ran Out of Food in the Last Year: Sometimes true Transportation Needs: No Transportation Needs (12/07/2024) Received from [facility] PRAPARE - Transportation Lack of Transportation (Medical): No Lack of Transportation (Non-Medical): No Physical Activity: Not on file Stress: Not on file Social Connections: Not on file Intimate Partner Violence: Not At Risk (12/07/2024) Received from [facility] Humiliation, Afraid, Rape, and Kick questionnaire Fear of Current or Ex-Partner: No Emotionally Abused: No Physically Abused: No Sexually Abused: No Housing Stability: High Risk (12/07/2024) Received from [facility] Housing Stability Vital Sign Unable to Pay for Housing in the Last Year: Yes Number of Times Moved in the Last Year: 1 Homeless in the Last Year: No Allergies Allergen Reactions Banana Itching Prior to Admission medications Medication Sig Start Date End Date Taking? Authorizing Provider gabapentin (Neurontin) 300 MG capsule Take 300 mg by mouth 2 times daily. 11/27/24 11/27/25 Yes Historical Provider, cholecalciferol (Vitamin D3) 200 Unit tablet split tablet Take 10,000 Units by mouth daily. Historical Provider, ferrous sulfate 325 (65 Fe) MG EC tablet Take 1 tablet by mouth daily. Historical Provider, melatonin 3 MG tablet Take 1 tablet (3 mg) by mouth Nightly as needed for sleep. 11/09/24 Samson Farrar MD naloxone (Narcan) 0.4 MG/ML injection Infuse 1 mL (0.4 mg) into a venous catheter as needed for opioid reversal. 11/09/24 Samson Farrar MD ondansetron (Zofran) 4 MG/2ML injection Infuse 2 mL (4 mg) into a venous catheter every 6 hours as needed for nausea or vomiting. 11/09/24 Samson Farrar MD piperacillin-tazobactam (Zosyn) IVPB 3.375 g in 50 mL (premix) Infuse 50 mL (3.375 g) into a venous catheter every 8 hours. 11/09/24 Samson Farrar MD vancomycin 1,000 mg in sodium chloride 0.9 % 250 mL IVPB Infuse 1,000 mg into a venous catheter every 12 hours. 11/10/24 Samson Farrar MD Objective: Oxygen Delivery: VITALS: BP 97/51 Pulse 80 Temp 36.7 C (98 F) (Oral) Resp 19 Ht 6' 7" (2.007 m) Wt 197 lb (89.4 kg) SpO2 97% BMI 22.19 kg/m CURRENT PULSE OXIMETRY: SpO2: 97 % Review of Systems Cardiovascular: Negative for chest pain. Gastrointestinal: Negative for abdominal pain. Musculoskeletal: Positive for arthralgias and myalgias. Skin: Positive for wound. Neurological: Negative for dizziness and light-headedness. Constitutional: General Appearance []WDWN []Obese []Cachectic []Thin [x]Ill Eyes: Inspection of Pupils/Irises Pupils round and react: [x]Yes []No Sclera: []Icteric [x]Non-Icteric Inspection of Conjunctiva/Lids Conjunctiva: []Injected [x]Non-Injected Lids: [x]Intact []Lesion Present ENT/Mouth: External Inspection of ears/nose [x] Normal [] Scar/Lesion/Mass Inspection of teeth/lips/gums Dentition: [][place] Teeth []Dentures Lips/Gums: [x]Intact []Lesion Present Mucosa: [x][place] []Moist []Dry Neck: External Appearance Overall Appearance: [x]Normal []Lesion/Mass/Crepitus Present Trachea midline: [x]Yes []No Thyroid []Normal []Enlarged []Tender []Mass []Absent Respiratory: Respiratory effort []Labored [x]Non-Labored [] Mechanically-Ventilated Auscultation [x]Clear []Crackles []Wheezes []Rhonchi Cardiovascular: Auscultation Rate: [x]Regular []Irregular []Tachycardia []Bradycardia Rhythm: [x]Regular []Irregular Murmur: []Present []Absent Extremities Peripheral Edema: []Present [x]Absent Varicosities: []Present []Absent Gastrointestinal: Abdomen Palpation: [x]Soft []Firm []Tender []Non-Tender []Distended []Non-distended Mass: []Present []Absent Bowel Sounds: []Present []Absent Hernia: []Present []Absent Liver/Spleen: []Hepatosplenomegaly []Organomegaly Absent Musculoskeletal: Inspection of Digits and Nails Cyanosis: []Present [x]Absent Clubbing: []Present [x]Absent Ischemia: []Present []Absent Infection: []Present []Absent Extremities SHEPARD Equally: Except ([]RUE []RLE []LUE []LLE) Strength/Tone: Intact and Normal ([]RUE []RLE []LUE []LLE) Skin: Inspection []Normal []Rash [x]Lesion - L hip wound []Ulcer Palpation [x]Warm []Cool []Dry []Clammy []Nodules []Induration []Skin-tightening Cap-Refill: [] <3 sec [] >3 seconds (delayed) Neurologic: GCS EYE: 4 - Opens spontaneously GCS MOTOR: 6 - Obeys commands for movement GCS VERBAL: 5 - Oriented to person, place, time Total GCS: 15 [] Sensation grossly intact Psych: Mental Status Alert: [x]Yes [] No Oriented: []x0 []X1 []X2 [x]x3 Mood/Affect [x]Normal []Flat []Agitated []Depressed []Anxious []Calm []Sedated []NAD [facility] Labs within last 24 hours- BMP: Recent Labs 12/22/24 1253 NA 132* K 4.0 CL 98 CO2 24 BUN 11 CREATININE 1.16 CALCIUM 11.2* LFTs: Recent Labs 12/22/24 1253 12/22/24 1609 AST 16 -- ALT 6 -- PROT 7.2 -- ALBUMIN 2.6* -- BILITOT 0.4 -- BILIRUBINU -- Negative ALKPHOS 65 -- Glucose: Recent Labs 12/22/24 1253 GLUCOSE 108* Procal: No results for input(s): "PROCAL" in the last 72 hours. CBC: Recent Labs 12/22/24 1253 WBC 19.4* HGB 8.4* HCT 26.8* PLT 698* MCV 80.5 RDW 17.3* ABGs: No results for input(s): "PHART", "XZP6QMA", "PO2ART", "MLY6TMG", "SO2ART", "A3QZEZAB" in the last 72 hours. Lactic Acid: Recent Labs 12/22/24 1253 LACTATE 1.7 INR: No results for input(s): "INR" in the last 72 hours. Cardiac Injury Profile: No results for input(s): "CKTOTAL", "CKMB", "TROPONINI" in the last 72 hours. Labs in Last 3 months: Lab Results Component Value Date TSH 0.84 11/08/2024 Microbiology- Urine Cx: No results found for: URINECX Blood Cx: Lab Results Component Value Date BLOODCX No growth at 24 hours 12/22/2024 BLOODCX No growth at 24 hours 12/22/2024 Sputum Cx: No results found for: RESPCULT Gram Stain: Lab Results Component Value Date LABGRAM (A) 12/22/2024 Few Polymorphonuclear leukocytes per low power field LABGRAM Few Gram positive cocci (A) 12/22/2024 LABGRAM Moderate Gram positive bacilli (A) 12/22/2024 LABGRAM Few Gram negative bacilli (A) 12/22/2024 PNA PCR: No results found for: HUMANMETAPNE COVID19: No results found for: COVID19 Legionella Ag: No results found for: "LEGIONELLAPN" Strep Ag: No results for input(s): "STREPPNEUMO" in the last 72 hours. Imaging- XR hip left 2 or 3 views Final Result 1. Irregular soft tissue heterogeneity and subcutaneous emphysema projecting of the left thigh soft tissues. Patient was noted to have an abscess in this region on prior CT. Consider follow-up cross-sectional imaging. 2. No acute osseous abnormality identified. Report Dictated on Electronically Signed By: Jamison Covarrubias MD Electronically Signed Date/Time: 12/22/2024 1:33 PM EDT XR chest 1 view Final Result 1. Lines/Tubes/Devices/Hardware: Leads noted. Please confirm position and function of any catheters or attempted catheters clinically. 2. Lungs: No convincing acute process.. Consider follow-up with PA and lateral chest for persistent symptoms. 3. Pleura: No convincing significant effusion. No significant pneumothorax. 4. Heart and mediastinum: No convincing acute process. 5. Upper abdomen: No acute process seen. 6. Thorax:No acute bony process Report Dictated on Electronically Signed By: Fidel Navas MD Electronically Signed Date/Time: 12/22/2024 1:25 PM EDT Assessment and Plan: Principal Problem: Sepsis, due to unspecified organism, unspecified whether acute organ dysfunction present (HCC) Assessment: Squamous cell carcinoma of L hip, on Cemiplimab Hidradenitis suppurativa Gluteal abscess/wound of L hip Chronic hypotension Hypercalcemia Leukocytosis Chronic pain 2/2 known SCC L hip Plan: Patient with known history of chronic hypotension, repeat BP in R arm with MAP of 80. Patient stable for GMF, awaiting transfer to [facility] Re-check lactic acid, BMP to monitor hypercalcemia Recommend continuing broad spectrum Vancomycin and Zosyn, pending wound and blood cultures Recommending continuing current pain regimen Remainder per primary service GI Prophylaxis: N/A DVT Prophylaxis: Lovenox 40 q 24hr - creatinine clearance >30 BMI Classification: Body mass index is 22.19 kg/m . normal BMI 18.5-24.9 Disposition: Stable for GMF, awaiting transfer to [facility] Cosigned by Noah Stewart DO at 12/23/2024 7:11 PM EDT Associated attestation - Noah Stewart DO - 12/23/2024 7:11 PM EDT I have personally performed a [id number] diagnostic evaluation on this patient on date of service 12/23/24. History, labs, imaging studies, and electronic medical record have been reviewed by me. This note documented by the []Critical Care Fellow [x]nanny/household manager []BRITTNEY reflects my history, exam, and medical decision making. I have reviewed and agree with the care plan. Changes were made in the orders as necessary. ROS documentation was reviewed and negative unless otherwise stated in HPI. Additional pertinent interval history, ROS, and physical exam findings: AdmitDate = 12/22/2024 LOS: 0 Brought to ER from [facility] with concern for worsening left hip wound with inc in drainage and foul smell. Currently being treated for SCC of left hip/buttock. Has been accepted for transfer to but is awaiting bed availability. MICU was contacted d/t hypotension in the ER. Assessment: SCC left hip on Ctx. Hidradinitis supp. Gluteal abscess/wound -- present on admit. Chronic hypotension/soft BP Plan: Ok to remain on GMF at this time. Is currently off pressors and is hemodynamically stable with SBP in 90s and MAP in 70s on right arm. In addition, lactic has been normal and pt is asymptomatic while lying on ER gurney. At this time he has no other ICU requirements. Agree with ongoing Abx and support of euvolemia. Continue pain control regimen per medicine team. In my professional opinion this pt remains critically ill based on the aforementioned assessment/plan: No Disposition: remain GMF status for now Critical Care Time: 35min Or Noncritical Care Time: n/a Total time caring for this patient including direct patient contact, review of data including imaging and labs, discussions with other team members and physicians, excluding procedures. documented in this encounter [facility] [facility] 12[facility]24 Emergency department Note RN informed patient admitting team of patient b/p . Pt on the monitor. Pt declined feeling dizzy or nauseous. Pt want pants, RN is looking for pants [facility] 12-23-2024 Emergency department Note RN informed patient admitting team of patient b/p . Pt on the monitor. Pt declined feeling dizzy or nauseous. Pt want pants, RN is looking for pants Pt moved into inpatient bed. Pt on the monitor. Report given to Sunni NEWTON Received report from Parish NEWTON Levo drip turned off. BP 102/64. Levo titrated to 2mcg/min. Patient BP remains stable. Levo titrated to 4mcg/min. BP remains stable. Patient asymptomatic. Levo titrated to 6mcg/min. BP remains stable. Patient asymptomatic. Report given to Parish NEWTON Dressing change completed with ABD pads, 2x2s and tape. Pt repostioned and saturated chucks removed Messaged pharmacy regarding missing vancomycin dose Report given to Mary NEWTON for lunch coverage Images from the original note were not included. HPI Chief Complaint Patient presents with Wound Infection Pt arrives by life care from [facility] in [place], [facility] pt has had wound infection since September, pt stood up out of bed last night and it started bleeding and having a foul odor last night. Presents to the emergency department for evaluation of drainage from his hip wound. Patient states he got up last night and he started having bleeding and oozing from his left hip. He has a history of persistent infection secondary to hidradenitis suppurativa and is currently on Augmentin after returning to his facility about a week ago from [facility] as he has SCC treating with cemiplimab. He reports the facility cannot help him due to ongoing odor and drainage therefore he was referred back to the emergency department. He denies any fever, chills, chest pain, shortness of breath, syncope, abdominal pain, changes in limited range of motion of the hip secondary to his illness. There is no new traumatic incident. He feels like he is otherwise at his baseline and no increased pain. He is tolerating his medications, oral intake and typical urinary output. History provided by: Patient technical research scientist used: No INFORMED PHOTO CONSENT: The patient has given verbal consent to have photos taken of left hip and inserted into their provider note as a part of their permanent medical record for purposes of documentation, treatment management, and/or medical review. All images taken were transmitted and stored on a secure [email or web address] Credit Reference Clerk Site located within a Media Folder Tab by a registered webme Mobile Application Device. See "Media" tab in [email or web address] or photo as below. [place] Coma Scale Score: 15 Patient History No past medical history on file. No past surgical history on file. No family history on file. Social History Tobacco Use Smoking status: Not on file Smokeless tobacco: Not on file Substance Use Topics Alcohol use: Not on file Drug use: Not on file Physical Exam Visit Vitals BP 103/61 Pulse 74 Temp 36.7 C (98 F) (Oral) Resp 18 Ht 2.007 m (6' 7") Wt 89.4 kg (197 lb) SpO2 98% BMI 22.19 kg/m BSA 2.23 m Physical Exam Constitutional: General: He is not in acute distress. Appearance: He is ill-appearing. Comments: Large open draining wound with malodor upon my entering room HENT: Head: Normocephalic and atraumatic. Mouth/Throat: Lips: [place]. Mouth: Mucous membranes are moist. Cardiovascular: Rate and Rhythm: Normal rate and regular rhythm. Pulses: Radial pulses are 2+ on the left side. Dorsalis pedis pulses are 2+ on the left side. Comments: Resting tachycardia. No leg swelling at the calves. Pulmonary: Effort: Pulmonary effort is normal. Breath sounds: Normal breath sounds. No wheezing or rhonchi. Abdominal: General: Bowel sounds are normal. Palpations: Abdomen is soft. Tenderness: There is no abdominal tenderness. Musculoskeletal: Cervical back: Full passive range of motion without pain and neck supple. Comments: No midline vertebral tenderness. To the left hip there is localized swelling, erythema and multiple open wounds as depicted below. There is drainage and odor. There is no communication to the rectum or perineum. No crepitus. Compartments soft. Patient is able to flex and extend at the left knee. Strong left pedal pulse. Neurovascularly intact. Skin: General: Skin is warm and dry. Capillary Refill: Capillary refill takes less than 2 seconds. Coloration: Skin is not cyanotic or pale. Findings: Wound present. Comments: Left hip wound as depicted below Neurological: Mental Status: He is alert and oriented to person, place, and time. Sensory: Sensation is intact. Motor: Motor function is intact. Coordination: Coordination is intact. Psychiatric: Mood and Affect: Mood normal. Behavior: Behavior is cooperative. XR hip left 2 or 3 views Final Result 1. Irregular soft tissue heterogeneity and subcutaneous emphysema projecting of the left thigh soft tissues. Patient was noted to have an abscess in this region on prior CT. Consider follow-up cross-sectional imaging. 2. No acute osseous abnormality identified. Report Dictated on Electronically Signed By: Jamison Covarrubias MD Electronically Signed Date/Time: 12/22/2024 1:33 PM EDT XR chest 1 view Final Result 1. Lines/Tubes/Devices/Hardware: Leads noted. Please confirm position and function of any catheters or attempted catheters clinically. 2. Lungs: No convincing acute process.. Consider follow-up with PA and lateral chest for persistent symptoms. 3. Pleura: No convincing significant effusion. No significant pneumothorax. 4. Heart and mediastinum: No convincing acute process. 5. Upper abdomen: No acute process seen. 6. Thorax:No acute bony process Report Dictated on Electronically Signed By: Fidel Navas MD Electronically Signed Date/Time: 12/22/2024 1:25 PM EDT Labs Reviewed CBC WITH AUTO DIFFERENTIAL - Abnormal Result Value Auto WBC 19.4 (*) RBC 3.33 (*) Hemoglobin 8.4 (*) Hematocrit 26.8 (*) MCV 80.5 MCH 25.2 (*) MCHC 31.3 RDW 17.3 (*) Platelets 698 (*) MPV 8.9 (*) COMPREHENSIVE METABOLIC PANEL - Abnormal SODIUM 132 (*) POTASSIUM 4.0 CHLORIDE 98 CARBON DIOXIDE 24 ANION GAP 10 UREA NITROGEN 11 CREATININE 1.16 GLUCOSE 108 (*) CALCIUM 11.2 (*) AST (SGOT) 16 ALT 6 ALKALINE PHOSPHATASE 65 ALBUMIN 2.6 (*) BILIRUBIN, TOTAL 0.4 TOTAL PROTEIN 7.2 eGFR 76.3 MANUAL DIFFERENTIAL (CELLAVISION) - Abnormal RBC Morphology abnormal Poikilocytes Moderate (*) Ovalocytes Moderate (*) Stomatocytes Moderate (*) Neutrophils % 88 (*) Bands % 2 (*) Lymphocytes % 4 (*) Monocytes % 5 Basophils % 1 Absolute Neutrophil Count 17.5 (*) Bands Absolute 0.4 (*) Lymphocytes Absolute 0.8 (*) Monocytes Absolute 1.0 (*) Basophils Absolute 0.2 Neutrophils Manual 89 Lymphocytes Manual 4 Monocytes Manual 5 Eosinophils Manual Basophils Manual 1 Bands Manual 2 Metamyelocytes Manual Myelocytes Manual Promyelocytes Manual Blasts Manual Atypical Lymphocytes Manual Unclassified Cells, Manual BLOOD CULTURE - Normal Blood Culture Blood culture incubation started Narrative: Blood Collection Site: Right Arm BLOOD CULTURE - Normal Blood Culture Blood culture incubation started Narrative: Blood Collection Site: Left Arm LACTIC ACID WITH REFLEX - Normal LACTIC ACID 1.7 COMPLETE URINALYSIS - Normal Color, Urine Light Yellow Clarity, Urine Clear pH, Urine 6.0 Leukocytes, Urine Negative Nitrite, Urine Negative Protein, Urine Negative Glucose, Urine Normal Bilirubin, Urine Negative Ketones, Urine Negative Urobilinogen, Urine Normal Blood, Urine Negative SPECIFIC GRAVITY OF URINE (NUMERIC) 1.009 AEROBIC AND ANAEROBIC CULTURE WITH STAIN Narrative: The following orders were created for panel order Aerobic and Anaerobic Culture with Stain. Procedure Abnormality Status --------- ------ Culture, Aerobic Bacteri...[[id number]] In process Anaerobic culture[[id number]] In process Please view results for these tests on the individual orders. CULTURE, AEROBIC BACTERIA WITH GRAM STAIN CULTURE ANAEROBIC COMPLETE URINALYSIS WITH REFLEX TO CULTURE Narrative: The following orders were created for panel order Urinalysis Complete with reflex to Culture. Procedure Abnormality Status --------- ------ Complete Urinalysis[[id number]] Normal Final result Please view results for these tests on the individual orders. Encounter Date: 12/06/24 ECG 12 lead Result Value Heart Rate 58 QRSD Interval 94 QT Interval 397 QTC Interval 390 P [place] 44 QRS [place] 55 T Wave [place] 56 IN Interval 142 Impression Sinus bradycardia Electronically Signed On 12-06-2024 11:47:13 EDT by Fer Hollins ED Course & MDM Medical Decision Making Presents to the emergency department for a worsening malodorous wound to his left hip that was recently treated at [facility]. He is failing outpatient antibiotic therapy of Augmentin since December 19 as she is having worsening yellow bloody drainage. He has a soft blood pressure of 89/54 with a MAP of 65 upon my entering room. He is not tachycardic however has known infection. Sepsis initial order panel with blood cultures and wound culture ordered and empiric Zosyn and vancomycin placed. He does not have any hardware in this hip per his report. I did place orders for his methadone and as needed oxycodone despite his blood pressure as he is likely fluid responsive. Will obtain a plain film of his hip to check for subcutaneous air while awaiting baseline labs and ER attending evaluation. Amount and/or Complexity of Data Reviewed Labs: ordered. Decision-making details documented in ED Course. Radiology: ordered. Risk OTC drugs. Prescription drug management. ED Course as of 12/22/24 1823 Sun Dec 22, 2024 1325 Auto WBC(!): 19.4 [NA] 1325 BP 100/50 responding to IV fluids. [NA] 1341 LACTIC ACID: 1.7 [NA] [address] Dr[address] Mack and she is aware of hypotension while receiving IV fluids. [NA] 1600 Patient remains alert and oriented. Strong radial pulse. Normal capillary refill. He is persistently hypotensive after 30 cc/kg bolus. Labs reviewed. Need to consider admission to our facility given the patient's sepsis and vital signs rather than transfer to . Dr. Mack updated for disposition decision making and consideration of starting vasopressors. [NA] [address] Mack for continued management and potential transfer of the patient upon stabilization of blood pressure. [NA] [address] Mcfarlane for the MICU at [facility] [[facility]] ED Course User Index [[facility]J] Levi Mack DO [NA] RANDALL Verduzco CNP Diagnoses as of 12/22/24 182 Sepsis, due to unspecified organism, unspecified whether acute organ dysfunction present (HCC) Medication List ASK your doctor about these medications cholecalciferol 200 Unit tablet split tablet Commonly known as: Vitamin D3 ferrous sulfate 325 (65 Fe) MG EC tablet melatonin 3 MG tablet Take 1 tablet (3 mg) by mouth Nightly as needed for sleep. naloxone 0.4 MG/ML injection Commonly known as: Narcan Infuse 1 mL (0.4 mg) into a venous catheter as needed for opioid reversal. ondansetron 4 MG/2ML injection Commonly known as: Zofran Infuse 2 mL (4 mg) into a venous catheter every 6 hours as needed for nausea or vomiting. piperacillin-tazobactam 3-0.375 GM/50ML IVPB Commonly known as: Zosyn Infuse 50 mL (3.375 g) into a venous catheter every 8 hours. vancomycin 1,000 mg in sodium chloride 0.9 % 250 mL IVPB Infuse 1,000 mg into a venous catheter every 12 hours. Procedure None *This report was transcribed using voice recognition software. Every effort was made to ensure accuracy; however, inadvertent computerized veterinary medicine doctor errors may be present.* TRAVIS Verduzco 12/22/24 RANDALL Verduzco CNP 12/22/24 1759 Cosigned by Levi Mack DO at 12/22/2024 6:43 PM EDT Emergency Department Encounter [facility] EMERGENCY DEPT Patient: Kevan La : 1975 Date of Evaluation: 12/22/2024 ED Supervising Physician: Levi Mack DO I personally evaluated Kevan La and made/approved the management plan and take responsibility for the patient management. This will serve as my Supervisory note and shared attestation. I did perform a substantive portion of the visit including all aspects of the Medical Decision Making. I wore appropriate PPE for the entirety of this encounter. In brief, Kevan La is a 49 y.o. that presents to the emergency department for evaluation of a wound infection. Patient has a history of hidradenitis suppurativa. Had a large abscess in the left buttock that was managed at and is currently at a facility and receiving Augmentin. Facility reporting that they cannot manage his wound due to ongoing odor and drainage therefore sent him to the emergency department. Patient denying systemic symptoms. Focused exam: General: Alert, nontoxic-appearing Eyes: Conjunctiva normal Cardiac: Regular rhythm, normal rate Lungs: No respiratory distress, lungs clear to auscultation Abdomen: Soft, nontender, nondistended MSK: large area of open wound to the left gluteus, foul smelling with drainage. No crepitus. Skin: Warm and dry Neuro: no focal deficits Brief ED course/MDM: 49-year-old male presenting to the ED for a large left gluteal wound due to hidradenitis suppurativa. Had an abscess in this area that was managed at , currently on Augmentin however patient hypotensive in the ED. He was started on 30 cc/kg bolus of IV fluids and broad-spectrum antibiotics. Labs were obtained including lactic and blood cultures. WBC is elevated however his lactic is normal. X-ray of the hip shows some subcutaneous emphysema in the area where he had his known abscess. Low concern for necrotizing infection or osteomyelitis. Patient had downtrending blood pressures while in the ED. After 30 cc/kg bolus of IV fluids his MAP was still in the 50s. Patient was still alert and at baseline. He was started on peripheral Levophed. He had response and then was started on maintenance IV fluids. Chart review shows that the patient has a history of squamous cell carcinoma and hidradenitis suppurativa in the left buttock that is moving toward the left greater trochanter. He is correction had reported that he is currently on chemotherapy. He was hospitalized recently due to concerns of an abscess and had this managed by general surgery at [facility]. He receives most of his care for hidradenitis suppurativa at and is requesting to be transferred given that they are familiar with his care. Believe this is appropriate due to patient will require further evaluation by the surgery and primary team taking care of his chronic wound. We will continue IV antibiotics and IV pressors and transfer patient to [facility] for management. Diagnostics interpreted by me: I personally discussed the patient's management with other clinicians: Critical Care note: This patient was unstable and required constant supervision by me for 35 minutes during their visit. The patient's condition requiring intervention included: sepsis evaluation, multiple reassessments, vasopressors. This critical care time did not include time for procedures or time spent by the physicians assistant bookkeeper if they were caring for this patient. All diagnostic, treatment, and disposition decisions were made by myself in conjunction with the BRITTNEY. For all further details of the patient's emergency department visit, please see their documentation. (Comment: Please note this report has been produced using speech recognition software and may contain errors related to that system including errors in grammar, punctuation, and spelling, as well as words and phrases that may be inappropriate. If there are any questions or concerns please feel free to contact the dictating provider for clarification.) Levi Mack DO [employer] Levi Mack DO 12/22/24 1730 Levi Mack DO 12/22/24 1755 Pt signed out to me by Dr. Mack. Pt is awaiting transfer to for septic shock in setting of left buttock wound. Mani Dc DO 12/23/24 0115 I received this patient in signout who has been awaiting transfer to [facility] for septic shock in the setting of a left buttock wound requiring Levophed. I reviewed his labs and his medications and unfortunately has not been dosed with Zosyn since 1 PM. I reordered that and also timed for every 6 hours. He has been boarding in our emergency department for 16 hours now. We reached out to [facility] and they stated that there would not be a bed for the patient tonight. Given this and the fact that the patient is requiring pressors and ICU level of care that we just cannot provide in the emergency department safely for a long time I will reach out to our medical ICU to see if he can board in their department until the patient gets a bed at . Patient is agreeable to this plan. ICU team recommended giving him some more IV fluids to see if we can get him off the pressors. We were able to successfully get him off of the pressors. His blood pressure has been stable as he was fluid responsive. I reached back out to [facility] to get him accepted to a regular nursing floor. I spoke with Dr Benitez at [facility] who accepted the patient to the regular nursing floor but they will still not have beds until most likely later this afternoon so will plan to admit him here medically so that the can be under the supervision and care of a hospitalist. Admitted in stable condition. Mary Calvert MD 12/23/24 0629 documented in this encounter [facility] 12-23-2024 Emergency department Note Pt moved into inpatient bed. Pt on the monitor. [facility] 12-23-2024 Emergency department Note Report given to Sunni NEWTON [facility] 12-23-2024 History and physical note Attending History and Physical Admit Date: 12/22/2024 PCP: No primary care provider on file. CHIEF COMPLAINT: septic shock Reason for Admission: septic shock History Obtained From: patient HISTORY OF PRESENT ILLNESS: Kevan is a 49 y.o. male with past medical history of chronic hidradenitis and recent squamous cell carcinoma presents with acute on chronic wound in septic shock. Initial vitals 89/54. Labs sig or WBC 19, LA 1.7. BC taken Received zosyn, vancomycin and fluids. Required levophed but is now off of. [facility] accepted him but waiting on bed until later this afternoon. He was boarded in our ED for 16hrs. Seen at bedside. Wounds are foul smelling. Pt states he was dropped off here from [facility] as it was the closest hospital. All his doctors including derm, surgery are at . Will admit for further evaluation and management. Past Medical History: No past medical history on file. Past Surgical History: No past surgical history on file. Social History: Social History Socioeconomic History Marital status: Single Spouse name: Not on file Number of children: Not on file Years of education: Not on file Highest education level: Not on file Occupational History Not on file Tobacco Use Smoking status: Not on file Smokeless tobacco: Not on file Substance and Sexual Activity Alcohol use: Not on file Drug use: Not on file Sexual activity: Not on file Other Topics Concern Not on file Social History Narrative Not on file Social Drivers of Health Financial Resource Strain: Medium Risk (12/07/2024) Received from [facility] Overall Financial Resource Strain (CARDIA) Difficulty of Paying Living Expenses: Somewhat hard Food Insecurity: No Food Insecurity (12/07/2024) Received from [facility] Hunger Vital Sign Worried About Running Out of Food in the Last Year: Never true Ran Out of Food in the Last Year: Never true Recent Concern: Food Insecurity - Food Insecurity Present (10/11/2024) Received from [facility] Hunger Vital Sign Worried About Running Out of Food in the Last Year: Sometimes true Ran Out of Food in the Last Year: Sometimes true Transportation Needs: No Transportation Needs (12/07/2024) Received from [facility] PRAPARE - Transportation Lack of Transportation (Medical): No Lack of Transportation (Non-Medical): No Physical Activity: Not on file Stress: Not on file Social Connections: Not on file Intimate Partner Violence: Not At Risk (12/07/2024) Received from [facility] Humiliation, Afraid, Rape, and Kick questionnaire Fear of Current or Ex-Partner: No Emotionally Abused: No Physically Abused: No Sexually Abused: No Housing Stability: High Risk (12/07/2024) Received from [facility] Housing Stability Vital Sign Unable to Pay for Housing in the Last Year: Yes Number of Times Moved in the Last Year: 1 Homeless in the Last Year: No Family History: No family history on file. Medications Prior to Admission: Current Facility-Administered Medications on File Prior to Encounter Medication Dose Route Frequency Provider Last Rate Last Admin [DISCONTINUED] amoxicillin-clavulanate (Augmentin) 875-125 MG per tablet 1 tablet Oral BID Generic External Data Provider [DISCONTINUED] bisacodyl (Dulcolax) suppository 10 mg Rectal Daily Generic External Data Provider [DISCONTINUED] cetirizine (ZyrTEC) tablet 10 mg Oral Daily Generic External Data Provider [DISCONTINUED] gabapentin (Neurontin) capsule 300 mg Oral BID Generic External Data Provider [DISCONTINUED] GENERIC EXTERNAL MEDICATION Generic External Data Provider [DISCONTINUED] GENERIC EXTERNAL MEDICATION Generic External Data Provider [DISCONTINUED] GENERIC EXTERNAL MEDICATION Inhalation Generic External Data Provider [DISCONTINUED] methadone (Dolophine) tablet 10 mg Oral q8h Generic External Data Provider Current Outpatient Medications on File Prior to Encounter Medication Sig Dispense Refill cholecalciferol (Vitamin D3) 200 Unit tablet split tablet Take 10,000 Units by mouth daily. ferrous sulfate 325 (65 Fe) MG EC tablet Take 1 tablet by mouth daily. melatonin 3 MG tablet Take 1 tablet (3 mg) by mouth Nightly as needed for sleep. naloxone (Narcan) 0.4 MG/ML injection Infuse 1 mL (0.4 mg) into a venous catheter as needed for opioid reversal. ondansetron (Zofran) 4 MG/2ML injection Infuse 2 mL (4 mg) into a venous catheter every 6 hours as needed for nausea or vomiting. piperacillin-tazobactam (Zosyn) IVPB 3.375 g in 50 mL (premix) Infuse 50 mL (3.375 g) into a venous catheter every 8 hours. vancomycin 1,000 mg in sodium chloride 0.9 % 250 mL IVPB Infuse 1,000 mg into a venous catheter every 12 hours. Allergies: Allergies Allergen Reactions Banana Itching REVIEW OF SYSTEMS: Constitutional: Negative for fever, + chills, activity change and unexpected weight change. HEENT: Negative for + congestion, postnasal drip and sneezing. Eyes: Negative for itching and visual disturbance. Respiratory: Negative for apnea, cough, choking, chest tightness, shortness of breath, wheezing and stridor. Cardiovascular: Negative for chest pain. Gastrointestinal: Negative for nausea, vomiting, abdominal pain, diarrhea and blood in stool. Genitourinary: Negative for dysuria, frequency and flank pain. Musculoskeletal: Negative for myalgias and joint swelling. Skin: + wound Neurological: Negative for dizziness, tremors, seizures, syncope, facial asymmetry, speech difficulty, weakness, numbness and headaches. Hematological: Negative for adenopathy. Psychiatric/Behavioral: Negative for suicidal ideas, behavioral problems, self-injury and dysphoric mood. Vitals: BP 92/53 Pulse 90 Temp 36.7 C (98 F) (Oral) Resp 18 Ht 6' 7" (2.007 m) Wt 197 lb (89.4 kg) SpO2 93% BMI 22.19 kg/m BMI Classification: Overweight (BMI 25.0-29.9) Pulse Ox: SpO2 Av.9 % Min: 93 % Max: 100 % Supplemental O2: PHYSICAL EXAM: Physical Exam Constitutional: Appearance: Normal appearance. HENT: Head: Normocephalic. Nose: Nose normal. Mouth/Throat: Mouth: Mucous membranes are moist. Eyes: Extraocular Movements: Extraocular movements intact. Cardiovascular: Rate and Rhythm: Normal rate and regular rhythm. Pulmonary: Effort: Pulmonary effort is normal. Breath sounds: Normal breath sounds. Abdominal: General: Abdomen is flat. Musculoskeletal: General: Normal range of motion. Right lower leg: No edema. Left lower leg: No edema. Skin: General: Skin is warm. Findings: Lesion present. Comments: See image in media Neurological: General: No focal deficit present. Mental Status: He is alert and oriented to person, place, and time. Psychiatric: Mood and Affect: Mood normal. Behavior: Behavior normal. DATA: CBC: Recent Labs 12/22/24 1253 WBC 19.4* RBC 3.33* HGB 8.4* HCT 26.8* MCV 80.5 RDW 17.3* PLT 698* BMP: Recent Labs 12/22/24 1253 NA 132* K 4.0 CL 98 CO2 24 BUN 11 CREATININE 1.16 GLUCOSE 108* CALCIUM 11.2* ANIONGAP 10 LIVER PROFILE: Recent Labs 12/22/24 1253 AST 16 ALT 6 BILITOT 0.4 ALKPHOS 65 PROT 7.2 PT/INR: No results for input(s): "PROTIME", "INR" in the last 72 hours. CARDIAC ENZYMES: No results for input(s): "TROPONINI" in the last 72 hours. Procalcitonin: No results found for: "PROCAL" Urine Culture: No results found for this or any previous visit. COVID-19 PCR: No results for input(s): "COVID19" in the last 72 hours. I reviewed: [x] laboratory results [x] radiographic results At the time of today's encounter. Pt was advised of the results. Data: (CAT1) Reviewed 3 or more notes from different specialty or health system (each=1). (LOW: 2x CAT1 or independent historian MOD: 3x CAT1 or 1x CAT3 EXTENSIVE: 3x CAT1 and 1x CAT3) Assessment Discussed management with the ED provider and agree with hospitalization. Acute, acute on chronic, unstable/uncontrolled chronic problems/diagnoses: Septic shock Refractory Hidradenitis suppurative Gluteal abscess Leukocytosis Hypotension Pain Invasive squamous cell carcinoma Stable chronic problems affecting care, new non-acute diagnoses: Plan As a result of the above findings & factors, the following mgmt was pursued: - continue zosyn and vancomycin - continue fluids - follow BC - resume home gabapentin - prn oxycodone for pain - transfer to when bed available were his naval designer, 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 Holding off consulting surgery as plan on transfer today. - am labs, replace lytes prn - PT/OT/CM/SW - delirium precautions: increase activity - DVT prophylaxis: hold for possible surgery Complexity: Acute illness or injury posing a threat to life or body function (HIGH). Risk: Admission to hospital-level care was considered or occurred (HIGH). Advance Directive: Prior Anticipated Discharge - Date - 12/23 - Location - main campus - Pending the following - bed available Total time spent (which include face to face and non face to face encounters) : 60 minutes. Extended Emergency Contact Information Primary Emergency Contact: Omkar La Mobile Relation: Brother [employer] Kevan La : 1975 Primary Care Physician: No primary care provider on file. The patient and/or family/surrogate voluntarily agreed to participate in ACP services. Patient s cognitive capacity: intact Code Status: [x_] [FULL CODE - Continue all advanced life support: CPR,intubation,invasive procedures] [_] [DNR-CCA - DO NOT do CPR, intubation] [_] [DNR-STATIONARY ENGINEER REFRIGERATION - Comfort care only] [_] DNR form [was/was not] signed Summary of discussion: assume full code [Condition that instigated the ACP on this DOS, relevant PMH, functional status, goals of care, and whom this was discussed with including names and relationship to the patient, and any relevant advance care documentation discussion] I answered all the patient/family questions that I could within the range and scope of the current medical situation. We discussed the medical conditions, risks, benefits, outcomes, and goals of care at this time for the patient's medical issues at hand in the face of the patient's chronic issues and current presentation. Total time spent: 5 minutes were spent discussing the patient's resuscitation status, advance care planning, and end of life care, with patient and/or family/surrogate. Clarita Hay DO Division of Hospitalist Medicine [facility] [employer] Work Phone: 12-23-2024 Note Attending History an d Physical Admit Date: 12/22/2024 PCP: No primary care provider on file. CHIEF COMPLAINT: septic shock Reason for Admission: septic shock History Obtained From: patient HISTORY OF PRESENT ILLNESS: Kevan is a 49 y.o. male with past medical history of chronic hidradenitis and recent squamous cell carcinoma presents with acute on chronic wound in septic shock. Initial vitals 89/54. Labs sig or WBC 19, LA 1.7. BC taken Received zosyn, vancomycin and fluids. Required levophed but is now off of. [facility] accepted him but waiting on bed until later this afternoon. He was boarded in our ED for 16hrs. Seen at bedside. Wounds are foul smelling. Pt states he was dropped off here from [facility] as it was the closest hospital. All his doctors including derm, surgery are at . Will admit for further evaluation and management. Past Medical History: No past medical history on file. Past Surgical History: No past surgical history on file. Social History: Social History Socioeconomic History Marital status: Single Spouse name: Not on file Number of children: Not on file Years of education: Not on file Highest education level: Not on file Occupational History Not on file Tobacco Use Smoking status: Not on file Smokeless tobacco: Not on file Substance and Sexual Activity Alcohol use: Not on file Drug use: Not on file Sexual activity: Not on file Other Topics Concern Not on file Social History Narrative Not on file Social Drivers of Health Financial Resource Strain: Medium Risk (12/07/2024) Received from [facility] Overall Financial Resource Strain (CARDIA) Difficulty of Paying Living Expenses: Somewhat hard Food Insecurity: No Food Insecurity (12/07/2024) Received from [facility] Hunger Vital Sign Worried About Running Out of Food in the Last Year: Never true Ran Out of Food in the Last Year: Never true Recent Concern: Food Insecurity - Food Insecurity Present (10/11/2024) Received from [facility] Hunger Vital Sign Worried About Running Out of Food in the Last Year: Sometimes true Ran Out of Food in the Last Year: Sometimes true Transportation Needs: No Transportation Needs (12/07/2024) Received from [facility] PRAPARE - Transportation Lack of Transportation (Medical): No Lack of Transportation (Non-Medical): No Physical Activity: Not on file Stress: Not on file Social Connections: Not on file Intimate Partner Violence: Not At Risk (12/07/2024) Received from [facility] Humiliation, Afraid, Rape, and Kick questionnaire Fear of Current or Ex-Partner: No Emotionally Abused: No Physically Abused: No Sexually Abused: No Housing Stability: High Risk (12/07/2024) Received from [facility] Housing Stability Vital Sign Unable to Pay for Housing in the Last Year: Yes Number of Times Moved in the Last Year: 1 Homeless in the Last Year: No Family History: No family history on file. Medications Prior to Admission: Current Facility-Administered Medications on File Prior to Encounter Medication Dose Route Frequency Provider Last Rate Last Admin [DISCONTINUED] amoxicillin-clavulanate (Augmentin) 875-125 MG per tablet 1 tablet Oral BID Generic External Data Provider [DISCONTINUED] bisacodyl (Dulcolax) suppository 10 mg Rectal Daily Generic External Data Provider [DISCONTINUED] cetirizine (ZyrTEC) tablet 10 mg Oral Daily Generic External Data Provider [DISCONTINUED] gabapentin (Neurontin) capsule 300 mg Oral BID Generic External Data Provider [DISCONTINUED] GENERIC EXTERNAL MEDICATION Generic External Data Provider [DISCONTINUED] GENERIC EXTERNAL MEDICATION Generic External Data Provider [DISCONTINUED] GENERIC EXTERNAL MEDICATION Inhalation Generic External Data Provider [DISCONTINUED] methadone (Dolophine) tablet 10 mg Oral q8h Generic External Data Provider Current Outpatient Medications on File Prior to Encounter Medication Sig Dispense Refill cholecalciferol (Vitamin D3) 200 Unit tablet split tablet Take 10,000 Units by mouth daily. ferrous sulfate 325 (65 Fe) MG EC tablet Take 1 tablet by mouth daily. melatonin 3 MG tablet Take 1 tablet (3 mg) by mouth Nightly as needed for sleep. naloxone (Narcan) 0.4 MG/ML injection Infuse 1 mL (0.4 mg) into a venous catheter as needed for opioid reversal. ondansetron (Zofran) 4 MG/2ML injection Infuse 2 mL (4 mg) into a venous catheter every 6 hours as needed for nausea or vomiting. piperacillin-tazobactam (Zosyn) IVPB 3.375 g in 50 mL (premix) Infuse 50 mL (3.375 g) into a venous catheter every 8 hours. vancomycin 1,000 mg in sodium chloride 0.9 % 250 mL IVPB Infuse 1,000 mg into a venous catheter every 12 hours. Allergies: Allergies Allergen Reactions Banana Itching REVIEW OF SYSTEMS: Constitutional: Negative for fever, (more content not included)... [facility] 12-23-2024 History and physical note Attending History and Physical Admit Date: 12/22/2024 PCP: No primary care provider on file. CHIEF COMPLAINT: septic shock Reason for Admission: septic shock History Obtained From: patient HISTORY OF PRESENT ILLNESS: Kevan is a 49 y.o. male with past medical history of chronic hidradenitis and recent squamous cell carcinoma presents with acute on chronic wound in septic shock. Initial vitals 89/54. Labs sig or WBC 19, LA 1.7. BC taken Received zosyn, vancomycin and fluids. Required levophed but is now off of. [facility] accepted him but waiting on bed until later this afternoon. He was boarded in our ED for 16hrs. Seen at bedside. Wounds are foul smelling. Pt states he was dropped off here from [facility] as it was the closest hospital. All his doctors including derm, surgery are at . Will admit for further evaluation and management. Past Medical History: No past medical history on file. Past Surgical History: No past surgical history on file. Social History: Social History Socioeconomic History Marital status: Single Spouse name: Not on file Number of children: Not on file Years of education: Not on file Highest education level: Not on file Occupational History Not on file Tobacco Use Smoking status: Not on file Smokeless tobacco: Not on file Substance and Sexual Activity Alcohol use: Not on file Drug use: Not on file Sexual activity: Not on file Other Topics Concern Not on file Social History Narrative Not on file Social Drivers of Health Financial Resource Strain: Medium Risk (12/07/2024) Received from [facility] Overall Financial Resource Strain (CARDIA) Difficulty of Paying Living Expenses: Somewhat hard Food Insecurity: No Food Insecurity (12/07/2024) Received from [facility] Hunger Vital Sign Worried About Running Out of Food in the Last Year: Never true Ran Out of Food in the Last Year: Never true Recent Concern: Food Insecurity - Food Insecurity Present (10/11/2024) Received from [facility] Hunger Vital Sign Worried About Running Out of Food in the Last Year: Sometimes true Ran Out of Food in the Last Year: Sometimes true Transportation Needs: No Transportation Needs (12/07/2024) Received from [facility] PRAPARE - Transportation Lack of Transportation (Medical): No Lack of Transportation (Non-Medical): No Physical Activity: Not on file Stress: Not on file Social Connections: Not on file Intimate Partner Violence: Not At Risk (12/07/2024) Received from [facility] Humiliation, Afraid, Rape, and Kick questionnaire Fear of Current or Ex-Partner: No Emotionally Abused: No Physically Abused: No Sexually Abused: No Housing Stability: High Risk (12/07/2024) Received from [facility] Housing Stability Vital Sign Unable to Pay for Housing in the Last Year: Yes Number of Times Moved in the Last Year: 1 Homeless in the Last Year: No Family History: No family history on file. Medications Prior to Admission: Current Facility-Administered Medications on File Prior to Encounter Medication Dose Route Frequency Provider Last Rate Last Admin [DISCONTINUED] amoxicillin-clavulanate (Augmentin) 875-125 MG per tablet 1 tablet Oral BID Generic External Data Provider [DISCONTINUED] bisacodyl (Dulcolax) suppository 10 mg Rectal Daily Generic External Data Provider [DISCONTINUED] cetirizine (ZyrTEC) tablet 10 mg Oral Daily Generic External Data Provider [DISCONTINUED] gabapentin (Neurontin) capsule 300 mg Oral BID Generic External Data Provider [DISCONTINUED] GENERIC EXTERNAL MEDICATION Generic External Data Provider [DISCONTINUED] GENERIC EXTERNAL MEDICATION Generic External Data Provider [DISCONTINUED] GENERIC EXTERNAL MEDICATION Inhalation Generic External Data Provider [DISCONTINUED] methadone (Dolophine) tablet 10 mg Oral q8h Generic External Data Provider Current Outpatient Medications on File Prior to Encounter Medication Sig Dispense Refill cholecalciferol (Vitamin D3) 200 Unit tablet split tablet Take 10,000 Units by mouth daily. ferrous sulfate 325 (65 Fe) MG EC tablet Take 1 tablet by mouth daily. melatonin 3 MG tablet Take 1 tablet (3 mg) by mouth Nightly as needed for sleep. naloxone (Narcan) 0.4 MG/ML injection Infuse 1 mL (0.4 mg) into a venous catheter as needed for opioid reversal. ondansetron (Zofran) 4 MG/2ML injection Infuse 2 mL (4 mg) into a venous catheter every 6 hours as needed for nausea or vomiting. piperacillin-tazobactam (Zosyn) IVPB 3.375 g in 50 mL (premix) Infuse 50 mL (3.375 g) into a venous catheter every 8 hours. vancomycin 1,000 mg in sodium chloride 0.9 % 250 mL IVPB Infuse 1,000 mg into a venous catheter every 12 hours. Allergies: Allergies Allergen Reactions Banana Itching REVIEW OF SYSTEMS: Constitutional: Negative for fever, + chills, activity change and unexpected weight change. HEENT: Negative for + congestion, postnasal drip and sneezing. Eyes: Negative for itching and visual disturbance. Respiratory: Negative for apnea, cough, choking, chest tightness, shortness of breath, wheezing and stridor. Cardiovascular: Negative for chest pain. Gastrointestinal: Negative for nausea, vomiting, abdominal pain, diarrhea and blood in stool. Genitourinary: Negative for dysuria, frequency and flank pain. Musculoskeletal: Negative for myalgias and joint swelling. Skin: + wound Neurological: Negative for dizziness, tremors, seizures, syncope, facial asymmetry, speech difficulty, weakness, numbness and headaches. Hematological: Negative for adenopathy. Psychiatric/Behavioral: Negative for suicidal ideas, behavioral problems, self-injury and dysphoric mood. Vitals: BP 92/53 Pulse 90 Temp 36.7 C (98 F) (Oral) Resp 18 Ht 6' 7" (2.007 m) Wt 197 lb (89.4 kg) SpO2 93% BMI 22.19 kg/m BMI Classification: Overweight (BMI 25.0-29.9) Pulse Ox: SpO2 Av.9 % Min: 93 % Max: 100 % Supplemental O2: PHYSICAL EXAM: Physical Exam Constitutional: Appearance: Normal appearance. HENT: Head: Normocephalic. Nose: Nose normal. Mouth/Throat: Mouth: Mucous membranes are moist. Eyes: Extraocular Movements: Extraocular movements intact. Cardiovascular: Rate and Rhythm: Normal rate and regular rhythm. Pulmonary: Effort: Pulmonary effort is normal. Breath sounds: Normal breath sounds. Abdominal: General: Abdomen is flat. Musculoskeletal: General: Normal range of motion. Right lower leg: No edema. Left lower leg: No edema. Skin: General: Skin is warm. Findings: Lesion present. Comments: See image in media Neurological: General: No focal deficit present. Mental Status: He is alert and oriented to person, place, and time. Psychiatric: Mood and Affect: Mood normal. Behavior: Behavior normal. DATA: CBC: Recent Labs 12/22/24 1253 WBC 19.4* RBC 3.33* HGB 8.4* HCT 26.8* MCV 80.5 RDW 17.3* PLT 698* BMP: Recent Labs 12/22/24 1253 NA 132* K 4.0 CL 98 CO2 24 BUN 11 CREATININE 1.16 GLUCOSE 108* CALCIUM 11.2* ANIONGAP 10 LIVER PROFILE: Recent Labs 12/22/24 1253 AST 16 ALT 6 BILITOT 0.4 ALKPHOS 65 PROT 7.2 PT/INR: No results for input(s): "PROTIME", "INR" in the last 72 hours. CARDIAC ENZYMES: No results for input(s): "TROPONINI" in the last 72 hours. Procalcitonin: No results found for: "PROCAL" Urine Culture: No results found for this or any previous visit. COVID-19 PCR: No results for input(s): "COVID19" in the last 72 hours. I reviewed: [x] laboratory results [x] radiographic results At the time of today's encounter. Pt was advised of the results. Data: (CAT1) Reviewed 3 or more notes from different specialty or health system (each=1). (LOW: 2x CAT1 or independent historian MOD: 3x CAT1 or 1x CAT3 EXTENSIVE: 3x CAT1 and 1x CAT3) Assessment Discussed management with the ED provider and agree with hospitalization. Acute, acute on chronic, unstable/uncontrolled chronic problems/diagnoses: Septic shock Refractory Hidradenitis suppurative Gluteal abscess Leukocytosis Hypotension Pain Invasive squamous cell carcinoma Stable chronic problems affecting care, new non-acute diagnoses: Plan As a result of the above findings & factors, the following mgmt was pursued: - continue zosyn and vancomycin - continue fluids - follow BC - resume home gabapentin - prn oxycodone for pain - transfer to when bed available were his naval designer, 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 Holding off consulting surgery as plan on transfer today. - am labs, replace lytes prn - PT/OT/CM/SW - delirium precautions: increase activity - DVT prophylaxis: hold for possible surgery Complexity: Acute illness or injury posing a threat to life or body function (HIGH). Risk: Admission to hospital-level care was considered or occurred (HIGH). Advance Directive: Prior Anticipated Discharge - Date - 12/23 - Location - main campus - Pending the following - bed available Total time spent (which include face to face and non face to face encounters) : 60 minutes. Extended Emergency Contact Information Primary Emergency Contact: Omkar La Mobile Relation: Brother [employer] Kevan Pradoalexander : 1975 Primary Care Physician: No primary care provider on file. The patient and/or family/surrogate voluntarily agreed to participate in ACP services. Patient s cognitive capacity: intact Code Status: [x_] [FULL CODE - Continue all advanced life support: CPR,intubation,invasive procedures] [_] [DNR-CCA - DO NOT do CPR, intubation] [_] [DNR-STATIONARY ENGINEER REFRIGERATION - Comfort care only] [_] DNR form [was/was not] signed Summary of discussion: assume full code [Condition that instigated the ACP on this DOS, relevant PMH, functional status, goals of care, and whom this was discussed with including names and relationship to the patient, and any relevant advance care documentation discussion] I answered all the patient/family questions that I could within the range and scope of the current medical situation. We discussed the medical conditions, risks, benefits, outcomes, and goals of care at this time for the patient's medical issues at hand in the face of the patient's chronic issues and current presentation. Total time spent: 5 minutes were spent discussing the patient's resuscitation status, advance care planning, and end of life care, with patient and/or family/surrogate. Clarita Hay DO Division of Hospitalist Medicine [facility] documented in this encounter [facility] 12-23-2024 Emergency department Note Received report from Parish NEWTON [facility] 12-23-2024 Emergency department Note Levo drip turned off. BP 102/64. [facility] 12-22-2024 Emergency department Note Levo titrated to 2mcg/min. Patient BP remains stable. [facility] 12-22-2024 Emergency department Note Levo titrated to 4mcg/min. BP remains stable. Patient asymptomatic. [facility] 12-22-2024 Emergency department Note Levo titrated to 6mcg/min. BP remains stable. Patient asymptomatic. [facility] 12-22-2024 Emergency department Note Report given to Parish NEWTON [facility] 12-22-2024 Emergency department Note Dressing change completed with ABD pads, 2x2s and tape. Pt repostioned and saturated chucks removed [facility] 12-22-2024 Emergency department Note Messaged pharmacy regarding missing vancomycin dose T [facility] 12-22-2024 Emergency department Note Report given to Mary NEWTON for lunch coverage T [facility] 12-22-2024 Physician Emergency department Note Images from the original note were not included. HPI Chief Complaint Patient presents with Wound Infection Pt arrives by life care from [facility] in [place], [facility] pt has had wound infection since September, pt stood up out of bed last night and it started bleeding and having a foul odor last night. Presents to the emergency department for evaluation of drainage from his hip wound. Patient states he got up last night and he started having bleeding and oozing from his left hip. He has a history of persistent infection secondary to hidradenitis suppurativa and is currently on Augmentin after returning to his facility about a week ago from [facility] as he has SCC treating with cemiplimab. He reports the facility cannot help him due to ongoing odor and drainage therefore he was referred back to the emergency department. He denies any fever, chills, chest pain, shortness of breath, syncope, abdominal pain, changes in limited range of motion of the hip secondary to his illness. There is no new traumatic incident. He feels like he is otherwise at his baseline and no increased pain. He is tolerating his medications, oral intake and typical urinary output. History provided by: Patient technical research scientist used: No INFORMED PHOTO CONSENT: The patient has given verbal consent to have photos taken of left hip and inserted into their provider note as a part of their permanent medical record for purposes of documentation, treatment management, and/or medical review. All images taken were transmitted and stored on a secure [email or web address] Credit Reference Clerk Site located within a Media Folder Tab by a registered emids Application Device. See "Media" tab in [email or web address] or photo as below. [place] Coma Scale Score: 15 Patient History No past medical history on file. No past surgical history on file. No family history on file. Social History Tobacco Use Smoking status: Not on file Smokeless tobacco: Not on file Substance Use Topics Alcohol use: Not on file Drug use: Not on file Physical Exam Visit Vitals BP 103/61 Pulse 74 Temp 36.7 C (98 F) (Oral) Resp 18 Ht 2.007 m (6' 7") Wt 89.4 kg (197 lb) SpO2 98% BMI 22.19 kg/m BSA 2.23 m Physical Exam Constitutional: General: He is not in acute distress. Appearance: He is ill-appearing. Comments: Large open draining wound with malodor upon my entering room HENT: Head: Normocephalic and atraumatic. Mouth/Throat: Lips: [place]. Mouth: Mucous membranes are moist. Cardiovascular: Rate and Rhythm: Normal rate and regular rhythm. Pulses: Radial pulses are 2+ on the left side. Dorsalis pedis pulses are 2+ on the left side. Comments: Resting tachycardia. No leg swelling at the calves. Pulmonary: Effort: Pulmonary effort is normal. Breath sounds: Normal breath sounds. No wheezing or rhonchi. Abdominal: General: Bowel sounds are normal. Palpations: Abdomen is soft. Tenderness: There is no abdominal tenderness. Musculoskeletal: Cervical back: Full passive range of motion without pain and neck supple. Comments: No midline vertebral tenderness. To the left hip there is localized swelling, erythema and multiple open wounds as depicted below. There is drainage and odor. There is no communication to the rectum or perineum. No crepitus. Compartments soft. Patient is able to flex and extend at the left knee. Strong left pedal pulse. Neurovascularly intact. Skin: General: Skin is warm and dry. Capillary Refill: Capillary refill takes less than 2 seconds. Coloration: Skin is not cyanotic or pale. Findings: Wound present. Comments: Left hip wound as depicted below Neurological: Mental Status: He is alert and oriented to person, place, and time. Sensory: Sensation is intact. Motor: Motor function is intact. Coordination: Coordination is intact. Psychiatric: Mood and Affect: Mood normal. Behavior: Behavior is cooperative. XR hip left 2 or 3 views Final Result 1. Irregular soft tissue heterogeneity and subcutaneous emphysema projecting of the left thigh soft tissues. Patient was noted to have an abscess in this region on prior CT. Consider follow-up cross-sectional imaging. 2. No acute osseous abnormality identified. Report Dictated on Electronically Signed By: Jamison Covarrubias MD Electronically Signed Date/Time: 12/22/2024 1:33 PM EDT XR chest 1 view Final Result 1. Lines/Tubes/Devices/Hardware: Leads noted. Please confirm position and function of any catheters or attempted catheters clinically. 2. Lungs: No convincing acute process.. Consider follow-up with PA and lateral chest for persistent symptoms. 3. Pleura: No convincing significant effusion. No significant pneumothorax. 4. Heart and mediastinum: No convincing acute process. 5. Upper abdomen: No acute process seen. 6. Thorax:No acute bony process Report Dictated on Electronically Signed By: Fidel Navas MD Electronically Signed Date/Time: 12/22/2024 1:25 PM EDT Labs Reviewed CBC WITH AUTO DIFFERENTIAL - Abnormal Result Value Auto WBC 19.4 (*) RBC 3.33 (*) Hemoglobin 8.4 (*) Hematocrit 26.8 (*) MCV 80.5 MCH 25.2 (*) MCHC 31.3 RDW 17.3 (*) Platelets 698 (*) MPV 8.9 (*) COMPREHENSIVE METABOLIC PANEL - Abnormal SODIUM 132 (*) POTASSIUM 4.0 CHLORIDE 98 CARBON DIOXIDE 24 ANION GAP 10 UREA NITROGEN 11 CREATININE 1.16 GLUCOSE 108 (*) CALCIUM 11.2 (*) AST (SGOT) 16 ALT 6 ALKALINE PHOSPHATASE 65 ALBUMIN 2.6 (*) BILIRUBIN, TOTAL 0.4 TOTAL PROTEIN 7.2 eGFR 76.3 MANUAL DIFFERENTIAL (CELLAVISION) - Abnormal RBC Morphology abnormal Poikilocytes Moderate (*) Ovalocytes Moderate (*) Stomatocytes Moderate (*) Neutrophils % 88 (*) Bands % 2 (*) Lymphocytes % 4 (*) Monocytes % 5 Basophils % 1 Absolute Neutrophil Count 17.5 (*) Bands Absolute 0.4 (*) Lymphocytes Absolute 0.8 (*) Monocytes Absolute 1.0 (*) Basophils Absolute 0.2 Neutrophils Manual 89 Lymphocytes Manual 4 Monocytes Manual 5 Eosinophils Manual Basophils Manual 1 Bands Manual 2 Metamyelocytes Manual Myelocytes Manual Promyelocytes Manual Blasts Manual Atypical Lymphocytes Manual Unclassified Cells, Manual BLOOD CULTURE - Normal Blood Culture Blood culture incubation started Narrative: Blood Collection Site: Right Arm BLOOD CULTURE - Normal Blood Culture Blood culture incubation started Narrative: Blood Collection Site: Left Arm LACTIC ACID WITH REFLEX - Normal LACTIC ACID 1.7 COMPLETE URINALYSIS - Normal Color, Urine Light Yellow Clarity, Urine Clear pH, Urine 6.0 Leukocytes, Urine Negative Nitrite, Urine Negative Protein, Urine Negative Glucose, Urine Normal Bilirubin, Urine Negative Ketones, Urine Negative Urobilinogen, Urine Normal Blood, Urine Negative SPECIFIC GRAVITY OF URINE (NUMERIC) 1.009 AEROBIC AND ANAEROBIC CULTURE WITH STAIN Narrative: The following orders were created for panel order Aerobic and Anaerobic Culture with Stain. Procedure Abnormality Status --------- ------ Culture, Aerobic Bacteri...[[id number]] In process Anaerobic culture[[id number]] In process Please view results for these tests on the individual orders. CULTURE, AEROBIC BACTERIA WITH GRAM STAIN CULTURE ANAEROBIC COMPLETE URINALYSIS WITH REFLEX TO CULTURE Narrative: The following orders were created for panel order Urinalysis Complete with reflex to Culture. Procedure Abnormality Status --------- ------ Complete Urinalysis[[id number]] Normal Final result Please view results for these tests on the individual orders. Encounter Date: 12/06/24 ECG 12 lead Result Value Heart Rate 58 QRSD Interval 94 QT Interval 397 QTC Interval 390 P [place] 44 QRS [place] 55 T Wave [place] 56 IN Interval 142 Impression Sinus bradycardia Electronically Signed On 12-06-2024 11:47:13 EDT by Fer Hollins ED Course & MDM Medical Decision Making Presents to the emergency department for a worsening malodorous wound to his left hip that was recently treated at [facility]. He is failing outpatient antibiotic therapy of Augmentin since December 19 as she is having worsening yellow bloody drainage. He has a soft blood pressure of 89/54 with a MAP of 65 upon my entering room. He is not tachycardic however has known infection. Sepsis initial order panel with blood cultures and wound culture ordered and empiric Zosyn and vancomycin placed. He does not have any hardware in this hip per his report. I did place orders for his methadone and as needed oxycodone despite his blood pressure as he is likely fluid responsive. Will obtain a plain film of his hip to check for subcutaneous air while awaiting baseline labs and ER attending evaluation. Amount and/or Complexity of Data Reviewed Labs: ordered. Decision-making details documented in ED Course. Radiology: ordered. Risk OTC drugs. Prescription drug management. ED Course as of 12/22/24 182 Sun Dec 22, 2024 1325 Auto WBC(!): 19.4 [NA] 1325 BP 100/50 responding to IV fluids. [NA] 1341 LACTIC ACID: 1.7 [NA] [address] by Dr. Mack and she is aware of hypotension while receiving IV fluids. [NA] 1600 Patient remains alert and oriented. Strong radial pulse. Normal capillary refill. He is persistently hypotensive after 30 cc/kg bolus. Labs reviewed. Need to consider admission to our facility given the patient's sepsis and vital signs rather than transfer to . Dr. Mack updated for disposition decision making and consideration of starting vasopressors. [NA] [address] Mack for continued management and potential transfer of the patient upon stabilization of blood pressure. [NA] [address] Mcfarlane for the MICU at [facility] [[facility]] ED Course User Index [[facility]] [place]ewton Mack DO [NA] Ronna Leon, FLYER MAKER - SENIOR DATABASE ENGINEER Diagnoses as of 04/06/25 1823 Sepsis, due to unspecified organism, unspecified whether acute organ dysfunction present (HCC) Medication List ASK your doctor about these medications cholecalciferol 200 Unit tablet split tablet Commonly known as: Vitamin D3 ferrous sulfate 325 (65 Fe) MG EC tablet melatonin 3 MG tablet Take 1 tablet (3 mg) by mouth Nightly as needed for sleep. naloxone 0.4 MG/ML injection Commonly known as: Narcan Infuse 1 mL (0.4 mg) into a venous catheter as needed for opioid reversal. ondansetron 4 MG/2ML injection Commonly known as: Zofran Infuse 2 mL (4 mg) into a venous catheter every 6 hours as needed for nausea or vomiting. piperacillin-tazobactam 3-0.375 GM/50ML IVPB Commonly known as: Zosyn Infuse 50 mL (3.375 g) into a venous catheter every 8 hours. vancomycin 1,000 mg in sodium chloride 0.9 % 250 mL IVPB Infuse 1,000 mg into a venous catheter every 12 hours. Procedure None *This report was transcribed using voice recognition software. Every effort was made to ensure accuracy; however, inadvertent computerized veterinary medicine doctor errors may be present.* TRAVIS Verduzco 12/22/24 RANDALL Verduzco CNP 12/22/24 1759 Cosigned by Levi Mack DO at 12/22/2024 6:43 PM EDT [facility] 12-22-2024 Physician Emergency department Note Emergency Department Encounter [facility] EMERGENCY DEPT Patient: Kevan La : 1975 Date of Evaluation: 12/22/2024 ED Supervising Physician: Levi Mack DO I personally evaluated Kevan La and made/approved the management plan and take responsibility for the patient management. This will serve as my Supervisory note and shared attestation. I did perform a substantive portion of the visit including all aspects of the Medical Decision Making. I wore appropriate PPE for the entirety of this encounter. In brief, Kevan La is a 49 y.o. that presents to the emergency department for evaluation of a wound infection. Patient has a history of hidradenitis suppurativa. Had a large abscess in the left buttock that was managed at and is currently at a facility and receiving Augmentin. Facility reporting that they cannot manage his wound due to ongoing odor and drainage therefore sent him to the emergency department. Patient denying systemic symptoms. Focused exam: General: Alert, nontoxic-appearing Eyes: Conjunctiva normal Cardiac: Regular rhythm, normal rate Lungs: No respiratory distress, lungs clear to auscultation Abdomen: Soft, nontender, nondistended MSK: large area of open wound to the left gluteus, foul smelling with drainage. No crepitus. Skin: Warm and dry Neuro: no focal deficits Brief ED course/MDM: 49-year-old male presenting to the ED for a large left gluteal wound due to hidradenitis suppurativa. Had an abscess in this area that was managed at , currently on Augmentin however patient hypotensive in the ED. He was started on 30 cc/kg bolus of IV fluids and broad-spectrum antibiotics. Labs were obtained including lactic and blood cultures. WBC is elevated however his lactic is normal. X-ray of the hip shows some subcutaneous emphysema in the area where he had his known abscess. Low concern for necrotizing infection or osteomyelitis. Patient had downtrending blood pressures while in the ED. After 30 cc/kg bolus of IV fluids his MAP was still in the 50s. Patient was still alert and at baseline. He was started on peripheral Levophed. He had response and then was started on maintenance IV fluids. Chart review shows that the patient has a history of squamous cell carcinoma and hidradenitis suppurativa in the left buttock that is moving toward the left greater trochanter. He is correction had reported that he is currently on chemotherapy. He was hospitalized recently due to concerns of an abscess and had this managed by general surgery at [facility]. He receives most of his care for hidradenitis suppurativa at and is requesting to be transferred given that they are familiar with his care. Believe this is appropriate due to patient will require further evaluation by the surgery and primary team taking care of his chronic wound. We will continue IV antibiotics and IV pressors and transfer patient to [facility] for management. Diagnostics interpreted by me: I personally discussed the patient's management with other clinicians: Critical Care note: This patient was unstable and required constant supervision by me for 35 minutes during their visit. The patient's condition requiring intervention included: sepsis evaluation, multiple reassessments, vasopressors. This critical care time did not include time for procedures or time spent by the physicians assistant bookkeeper if they were caring for this patient. All diagnostic, treatment, and disposition decisions were made by myself in conjunction with the BRITTNEY. For all further details of the patient's emergency department visit, please see their documentation. (Comment: Please note this report has been produced using speech recognition software and may contain errors related to that system including errors in grammar, punctuation, and spelling, as well as words and phrases that may be inappropriate. If there are any questions or concerns please feel free to contact the dictating provider for clarification.) Levi Mack DO Acute Care [facility] Levi Mack DO 12/22/24 173 Levi Mack DO 12/22/24 175 [employer] Phone: 12-22-2024 Physician Emergency department Note Pt signed out to me by Dr. Mack. Pt is awaiting transfer to for septic shock in setting of left buttock wound. Mani Dc DO 12/23/24 0115 [employer] Phone: 12-22-2024 Physician Emergency department Note I received this patient in signout who has been awaiting transfer to [facility] for septic shock in the setting of a left buttock wound requiring Levophed. I reviewed his labs and his medications and unfortunately has not been dosed with Zosyn since 1 PM. I reordered that and also timed for every 6 hours. He has been boarding in our emergency department for 16 hours now. We reached out to [facility] and they stated that there would not be a bed for the patient tonight. Given this and the fact that the patient is requiring pressors and ICU level of care that we just cannot provide in the emergency department safely for a long time I will reach out to our medical ICU to see if he can board in their department until the patient gets a bed at . Patient is agreeable to this plan. ICU team recommended giving him some more IV fluids to see if we can get him off the pressors. We were able to successfully get him off of the pressors. His blood pressure has been stable as he was fluid responsive. I reached back out to [facility] to get him accepted to a regular nursing floor. I spoke with Dr Benitez at [facility] who accepted the patient to the regular nursing floor but they will still not have beds until most likely later this afternoon so will plan to admit him here medically so that the can be under the supervision and care of a hospitalist. Admitted in stable condition. Mary Calvert MD 12/23/24 0629 [email or web address] 12-22-2024 Progress note Formatting of t his note might be different from the original. Culture reviewed. Awaiting sensitivity results [email or web address] Work Phone: 12-20-2024 History of Present illness Narrative Kevan reports his wound dressing has shifted and is no longer attached. RN changed ABD pad and depends using clean technique. ABD: saturated with serous fluid, moderate amount of purulent drainage Depends: moderately saturated with serous fluid, small amount of purulent drainage Images from the original note were not included. CUTANEOUS ONCOLOGY: FU Diagnosis: locally advanced SCC Primary site location: L buttock HPI: Kevan La is a 49 y.o. year old male with a history of HS, who presents today to clinic for initial evaluation of squamous cell carcinoma. Diagnosis was found after being admitted to the hospital for hypercalcemia requiring IVF, palmindronate. He is feeling at baseline today- ready to start therapy. Symptoms being managed with supportive oncology on board. ROS: Review of Systems Constitutional: Negative for appetite change, chills, diaphoresis, fatigue, fever and unexpected weight change. HENT: Negative. Eyes: Negative. Respiratory: Negative for chest tightness, cough and shortness of breath. Cardiovascular: Negative for chest pain, leg swelling and palpitations. Gastrointestinal: Negative. Endocrine: Negative. Musculoskeletal: Negative. Negative for gait problem. Skin: + L buttock lesion Neurological: Negative for dizziness, extremity weakness, gait problem, headaches, light-headedness, numbness and speech difficulty. Hematological: Negative for adenopathy. Psychiatric/Behavioral: Negative. PE: Physical Exam Vitals reviewed. Constitutional: Appearance: Normal appearance. He is well-developed. HENT: Head: Normocephalic and atraumatic. Right Ear: External ear normal. No tenderness. Left Ear: External ear normal. No tenderness. Nose: Nose normal. Mouth/Throat: Mouth: Mucous membranes are moist. No injury or oral lesions. Tongue: No lesions. Pharynx: Oropharynx is clear. Eyes: Extraocular Movements: Extraocular movements intact. Conjunctiva/sclera: Conjunctivae normal. Pupils: Pupils are equal, round, and reactive to light. Neck: Thyroid: No thyroid mass. Abdominal: General: There is no abdominal bruit. Musculoskeletal: General: Normal range of motion. Cervical back: Normal range of motion. No signs of trauma. Normal range of motion. Lymphadenopathy: Upper Body: Right upper body: No axillary adenopathy. Left upper body: No axillary adenopathy. Skin: General: Skin is warm and dry. Comments: + L buttock lesions Neurological: General: No focal deficit present. Mental Status: He is alert and oriented to person, place, and time. Mental status is at baseline. Gait: Gait is intact. Psychiatric: Mood and Affect: Mood and affect normal. Behavior: Behavior normal. Behavior is cooperative. Thought Content: Thought content normal. Judgment: Judgment normal. Labs: Lab Results Component Value Date WBC 15.0 (H) 12/19/2024 WBC 13.2 (H) 12/18/2024 WBC 13.4 (H) 12/17/2024 Lab Results Component Value Date HGB 8.2 (L) 12/19/2024 HGB 8.5 (L) 12/18/2024 HGB 8.5 (L) 12/17/2024 Lab Results Component Value Date PLT 699 (H) 12/19/2024 PLT 705 (H) 12/18/2024 PLT 754 (H) 12/17/2024 Lab Results Component Value Date GLUCOSE 102 (H) 12/19/2024 CALCIUM 10.9 (H) 12/19/2024 NA 136 12/19/2024 K 4.9 12/19/2024 CO2 31 12/19/2024 CL 99 12/19/2024 BUN 13 12/19/2024 CREATININE 1.14 12/19/2024 Lab Results Component Value Date TSH 1.25 11/13/2024 Lab Results Component Value Date ALT 16 12/15/2024 AST 17 12/15/2024 ALKPHOS 65 12/15/2024 BILITOT 0.2 12/15/2024 Assessment: locally advanced squamous cell carcinoma Plan: Patient is feeling well. We went over treatment schedule, efficacy, response assessment, potential BERTHA. Consent signed today. Remaining pretreatment labs to be drawn prior to infusion today. Onco pharmacy referral placed as well- I spoke with Cara May PharmD who will speak with him today. Supportive oncology on board. I spoke with dermatology- he has FU set up. Monitor for hypercalcemia of malignancy- asymptomatic today. RTC per protocol Kevannicolasa Pradoalexander understands the plan and has no further questions. he will contact us if there are any new concerns or change in clinical picture. Sreedhar Jiang MD Attending Physician [facility] Shove Upcustomer engineer [facility] [employer] documented in this encounter [facility] Work Phone: 12-19-2024 History of Present illness Narrative 12/09/24 1000 Discharge Planning Living Arrangements Other (Comment);Alone (admitted from [facility]) Support Systems Family members;Other (Comment) (SNF staff, SNF SW) Assistance Needed skilled, PT/OT Type of Residence nursing home facility Do you have animals or pets at home? No Home or Post Acute Services Post acute facilities (Rehab/SNF/etc) (return to [facility]) Type of Post Acute Facility Services nursing home Expected Discharge Disposition SNF Does the patient need discharge transport arranged? Yes [facility] coordination needed? Yes Has discharge transport been arranged? No Patient Choice Provider Choice list and [facility] website (https://medicare.gov/care-compar e#search) for post-acute Quality and Resource Measure Data were provided and reviewed with: Patient Patient / Family choosing to utilize agency / facility established prior to hospitalization Yes SW met with pt to introduce role and discuss discharge planning. Pt admitted from [facility]; pt reports that he's been there on and off since September. Pt confirmed demographic and insurance details. SW contact details written on the whiteboard in pt room. Return referral sent to [facility]. SW will follow. Fer Hidalgo [facility] 12/09/2024 1040 Per [facility], pt's current auth expires on 12/11. Further discharge planning pending updates from the care team. SW will follow. Fer Hidalgo [facility] 12/11/2024 1030 Pt auth for [facility] expires today. Clinical updates sent to facility. Further discharge planning pending updates from the care team. SW will follow. Fer Hidalgo [facility] 12/16/2024 0955 Once PT and OT see pt for updated notes, [facility] will initiate precert. SW will follow. Fer Hidalgo [facility] 12/17/2024 1030 PT and OT saw pt this morning. Clinicals and therapy notes sent to facility. Facility was notified to initiate precert for pt to return. Care team notified SW that pt reported he doesn't want to return to [facility]. SANTO met with pt to check in and he reports that he has been telling everyone for days that he would prefer not to return to [facility]. SANTO offered to give pt a SNF choice list. After more conversation, pt decided to return to the SNF because his things are there and because he does not want to delay his treatment any further. SW let him know that the facility can assist him in transferring to another facility. Care team updated. SW sent the SNF pt's goldenrod with his appt information. Pt is medically ready for discharge. SW will follow. Fer Hidalgo [facility] 12/17/2024 1120 Per facility: "Auth Submitted - Pending Reference # [id number]" Liaison is confirming that there are no barriers to providing transport for pt's oncology appt on Monday. SW will follow. Fer Hiadlgo [facility] 12/18/2024 1245 [facility] reports that pt insurance is asking for PT note and a wound care note. SW let the facility note that yesterday's PT note was sent to them yesterday and that a request would be put in for a new wound care note. SW will follow. Fer Hidalgo [facility] 12/18/2024 1540 Wound care note sent to facility via Commissioner. SW will follow. Fer Hidalgo [facility] 12/19/2024 0920 Per facility: "Auth has been approved - [id number] - .12.10 to 12.30.2024" Care team notified. SW met with pt and let him know that he will discharge today. Transport requested in [facility] for 1100. SW asked facility to confirm that his transport for his oncology appt is set up. SW will follow. Fer Hidalgo [facility] 12/19/2024 1000 Transport confirmed for 1300 with [facility]. Care team, pt, and facility notified. Once received, number for report will be sent to bedside nurse. Pt requested to speak to a member of the care team; care team notified. SW will follow. Fer Hidalgo [facility] 12/19/2024 1015 Number for report is [phone] and was sent to bedside nurse. SW will follow. Fer Hidalgo [facility] Kevan La is a 49 y.o. male on day 11 of admission presenting with Gluteal abscess. SUPPORTIVE AND PALLIATIVE ONCOLOGY INPATIENT FOLLOW-UP SERVICE DATE: 12/18/24 Updates 12/18/24, recommended changes are bolded below: Symptoms controlled, no changes Pt is awaiting SNF precert- medically cleared for dc ASSESSMENT/PLAN: Kevan La is a 49 y.o. male diagnosed with squamous cell carcinoma. PMH significant for refractory hidradenitis supprativa (HS), chronic gluteal wound and hypotension. Admitted 12/07/2024 for further evaluation and management of cellulitis in LLE. Supportive and Palliative Oncology is consulted for pain management. Symptom Management Plan: Recommended changes are bolded Pain: Cancer related pain: gluteal abscess , somatic, well-controlled Home regimen: Oxycodone 5mg Intolerances/previously tried: N/A Risk factors: none Renal function impaired and Hepatic function WNL EKG 12/12/24 QTc 416 Continue 10mg methadone TID Continue 20mg oxycodone q3h PRN for mod- severe pain Continue 1.0 mg IV hydromorphone q2h PRN for BT pain Nausea: At risk for nausea with vomiting related to opioids Home regimen: none QTc: within normal limits Sub- optimally controlled Continue 8 mg ondansetron q8h PRN Continue 10mg prochlorperazine q6h PRN Pain control as above Constipation At risk for constipation related to medication side effects (including opioids), currently not constipated Usual bowel pattern: every day Home regimen: none LBM yesterday Continue miralax daily Continue 2 senna-s BID Goal to have BM without straining q48-72h, adjust regimen as needed Disposition: Please start the process of having prior authorization with meds to beds deliver medications to patient prior to discharge via [facility] pharmacy. Prescriptions will need to be sent 48-72 hours prior to discharge so that a prior authorization can be completed. Discharge date: unknown pending acute issues Patient has an appointment with Outpatient Supportive Oncology TRAVIS Talavera 12/30/24 SIGNATURE: TRAVIS Rodas PAGER/CONTACT: Contact information: [facility] Monday-Monday 8 AM-5 PM [email or web address] Secure chat or pager [phone]. After hours and weekends: pager [phone] SUBJECTIVE: Interval Events: Pt reports pain is controlled with regimen. Reports music therapy and acupuncture have also been helpful. BM 3 days ago Pain Assessment: Cancer related pain: gluteal abscess , somatic, well-controlled Duration: Constant Characteristics: Rating: Severe Descriptors: aching, throbbing, sharp, and burning Aggravating: movement and lying down Relieving: Analgesics opioids, Positioning, and Modifying activity Interference with Function: Very Much Opioid Requirements Past 24 h opioid requirements (12/17/24 at 0800 to 12/18/24 at 0800): Hydromorphone 1.0 mg IV x 5 doses = 5.0 mg = 80 OME Oxycodone IR 20 mg PO x 6 doses = 120 mg = 180 OME Total 24h OME use: 260 OME over 10 mg methadone TID Symptom Assessment: Constipation somewhat Lack of energy very much Lack of appetite somewhat Depressive symptoms somewhat Information obtained from: chart review, interview of patient, and discussion with primary team ____ OBJECTIVE: Lab Results Component Value Date WBC 13.2 (H) 12/18/2024 HGB 8.5 (L) 12/18/2024 HCT 28.5 (L) 12/18/2024 MCV 84 12/18/2024 PLT 705 (H) 12/18/2024 Lab Results Component Value Date GLUCOSE 92 12/17/2024 CALCIUM 11.3 (H) 12/17/2024 NA 137 12/17/2024 K 4.1 12/17/2024 CO2 30 12/17/2024 CL 99 12/17/2024 BUN 14 12/17/2024 CREATININE 1.18 12/17/2024 Lab Results Component Value Date ALT 16 12/15/2024 AST 17 12/15/2024 ALKPHOS 65 12/15/2024 BILITOT 0.2 12/15/2024 Estimated Creatinine Clearance: 93.7 mL/min (by C-G formula based on SCr of 1.18 mg/dL). Scheduled medications acetaminophen, 975 mg, oral, q8h amoxicillin-pot clavulanate, 1 tablet, oral, q12h BERNADETTE bisacodyl, 10 mg, rectal, Daily [START ON 12/19/2024] cetirizine, 10 mg, oral, Daily chlorhexidine, , Topical, BID cholecalciferol, 1,000 Units, oral, Daily clindamycin, , Topical, BID enoxaparin, 40 mg, subcutaneous, Daily folic acid, 1 mg, oral, Daily gabapentin, 300 mg, oral, BID lidocaine, 0.1 mL, subcutaneous, Once melatonin, 3 mg, oral, Nightly methadone, 10 mg, oral, q8h polyethylene glycol, 17 g, oral, Daily sennosides-docusate sodium, 2 tablet, oral, BID tiZANidine, 2 mg, oral, TID varenicline tartrate, 1 mg, oral, BID Continuous medications PRN medications HYDROmorphone, 1 mg, q2h PRN ondansetron, 4 mg, q8h PRN Or ondansetron, 4 mg, q8h PRN oxyCODONE, 20 mg, q3h PRN oxygen, , Continuous PRN - O2/gases prochlorperazine, 10 mg, q6h PRN Or prochlorperazine, 10 mg, q6h PRN Or prochlorperazine, 25 mg, q12h PRN } PHYSICAL EXAMINATION: Vital Signs: Vital signs reviewed Visit Vitals BP 95/65 (BP Location: Right arm, Patient Position: Lying) Pulse 65 Temp 36.8 C (98.2 F) (Temporal) Resp 16 0-10 (Numeric) Pain Score: 6 Hernandez-Portillo FACES Pain Rating: Hurts little bit Physical Exam Chronically ill-appearing M Laying in bed, NAD A&O x 3, pleasant and cooperative with interview & exam Breathing comfortably on RA Abd soft, NTND No edema in ext, LLE erythematous PALLIATIVE CARE ENCOUNTER: [facility] encounter: Spoke with patient at bedside Emotional support provided Coordination of care: home-going prescription recommendations and coordination of IDT involvement Medical Decision Making/Goals of Care/Advance Care Planning: Patient's current clinical condition, including diagnosis, prognosis, and management plan, and goals of care were discussed. Life limiting disease: SCC of UNK primary Family: Supportive though live in [place] Performance status: Moderate limitations due to pain Joys/meaning/strength: Family and [place] Understanding of health: 12/08: Demonstrates good prognostic understanding of disease process, understands plan for treatment of cellulitis and aggressive pain management. Additionally increased wound drainage and odor. Hopeful to get back to rehab soon as he was making significant progress there. 12/12: Pt was able to get MRI under sedation. States pain continues to be constant- is relieved with meds but needs them atc. Agreeable to opioid rotation. Information:Wants full disclosure Goals: symptom control Worries and fears now and future: ongoing symptoms Code status discussion: Discussed previously and Full code Advance Directives Existence of Advance Directives:No - not interested Decision maker: Surrogate decision maker is brother Omkar La [phone] Signature and billing: Medical complexity was high level due to due to complexity of problems, extensive data review, and high risk of management/treatment. Data: Diagnostic tests and information reviewed for today's visit: Conversation with primary team, Most recent labs and imaging results, Medications Some elements copied from my note on 12/12/24, the elements have been updated and all reflect current decision making from today, 12/18/24 Plan of Care discussed with: Provider and Patient Thank you for asking [facility] to assist with care of this patient. Recommendations will be communicated back to the consulting service by way of shared electronic medical record/secure chat/email or [id number]. We will continue to follow Please contact us for additional questions or concerns. SIGNATURE: TRAVIS Rodas PAGER/CONTACT: Contact information: [facility] Monday-Monday 8 AM-5 PM [email or web address] Secure chat or pager [phone]. After hours and weekends: pager [phone] 12/09/24 1000 Discharge Planning Living Arrangements Other (Comment);Alone (admitted from [facility]) Support Systems Family members;Other (Comment) (SNF staff, SNF SW) Assistance Needed skilled, PT/OT Type of Residence nursing home facility Do you have animals or pets at home? No Home or Post Acute Services Post acute facilities (Rehab/SNF/etc) (return to [facility]) Type of Post Acute Facility Services nursing home Expected Discharge Disposition SNF Does the patient need discharge transport arranged? Yes RoundTrip coordination needed? Yes Has discharge transport been arranged? No Patient Choice Provider Choice list and [facility] website (https://medicare.gov/care-compar e#search) for post-acute Quality and Resource Measure Data were provided and reviewed with: Patient Patient / Family choosing to utilize agency / facility established prior to hospitalization Yes SW met with pt to introduce role and discuss discharge planning. Pt admitted from [facility]; pt reports that he's been there on and off since September. Pt confirmed demographic and insurance details. SW contact details written on the whiteboard in pt room. Return referral sent to [facility]. SW will follow. Fer Hidalgo [facility] 12/09/2024 1040 Per [facility], pt's current auth expires on 12/11. Further discharge planning pending updates from the care team. SW will follow. Fer Hidalgo [facility] 12/11/2024 1030 Pt auth for [facility] expires today. Clinical updates sent to facility. Further discharge planning pending updates from the care team. SW will follow. Fer Hidalgo [facility] 12/16/2024 0955 Once PT and OT see pt for updated notes, [facility] will initiate precert. SW will follow. Fer Hidaglo [facility] 12/17/2024 1030 PT and OT saw pt this morning. Clinicals and therapy notes sent to facility. Facility was notified to initiate precert for pt to return. Care team notified SW that pt reported he doesn't want to return to [facility]. SW met with pt to check in and he reports that he has been telling everyone for days that he would prefer not to return to [facility]. SW offered to give pt a SNF choice list. After more conversation, pt decided to return to the SNF because his things are there and because he does not want to delay his treatment any further. SW let him know that the facility can assist him in transferring to another facility. Care team updated. SW sent the SNF pt's goldenrod with his appt information. Pt is medically ready for discharge. SW will follow. Fer Hidalgo [facility] 12/17/2024 1120 Per facility: "Auth Submitted - Pending Reference # [id number]" Liaison is confirming that there are no barriers to providing transport for pt's oncology appt on Monday. SW will follow. Fer Hidalgo [facility] 12/18/2024 1245 [facility] reports that pt insurance is asking for PT note and a wound care note. SW let the facility note that yesterday's PT note was sent to them yesterday and that a request would be put in for a new wound care note. SW will follow. Fer Hidalgo [facility] 12/18/2024 1540 Wound care note sent to facility via Commissioner. SW will follow. Fer Hidalgo [facility] Images from the original note were not included. Internal Medicine Daily Progress Note Subjective Interval events: NAEO. Pain stable not requiring IV pain meds. No other concerns or complaints at this time. Objective Vitals: Visit Vitals BP 96/66 Pulse 70 Temp 36.5 C (97.7 F) (Temporal) Resp 16 Intake/Output Summary (Last 24 hours) at 12/18/2024 0726 Last data filed at 12/18/2024 0507 Gross per 24 hour Intake 320 ml Output 2150 ml Net -1830 ml Physical exam: General: Awake, withdrawn, NAD HEENT: PERRL, EOMI, no scleral icterus CV: RRR, no M/R/G RESP: Lungs clear to auscultation bilaterally GI: Soft, NTND, no masses, guarding, or rebound tenderness EXT: No peripheral edema, no asymmetry noted Skin: L gluteal wound with purulent, malodorous drainage. Skin discoloration, and protruding mass evident inferior to above wound. Ulcerous lesion on L thigh. Tracts below this lesion with purulent drainage. Bandage over left glute. Neuro: AOx4, moving all limbs spontaneously, follows commands Medications: acetaminophen, 975 mg, oral, q8h amoxicillin-pot clavulanate, 1 tablet, oral, q12h BERNADETTE bisacodyl, 10 mg, rectal, Daily chlorhexidine, , Topical, BID cholecalciferol, 1,000 Units, oral, Daily clindamycin, , Topical, BID enoxaparin, 40 mg, subcutaneous, Daily folic acid, 1 mg, oral, Daily gabapentin, 300 mg, oral, BID lidocaine, 0.1 mL, subcutaneous, Once melatonin, 3 mg, oral, Nightly methadone, 10 mg, oral, q8h polyethylene glycol, 17 g, oral, Daily sennosides-docusate sodium, 2 tablet, oral, BID tiZANidine, 2 mg, oral, TID varenicline tartrate, 1 mg, oral, BID PRN medications: HYDROmorphone, ondansetron OR ondansetron, oxyCODONE, oxygen, prochlorperazine OR prochlorperazine OR prochlorperazine Labs: Results from last 72 hours Lab Units 12/17/24 0557 12/16/24 0600 12/15/24 0813 WBC AUTO x10*3/uL 13.4* 12.8* 13.9* HEMOGLOBIN g/dL 8.5* 8.3* 8.5* HEMATOCRIT % 29.0* 27.8* 27.6* PLATELETS AUTO x10*3/uL 754* 660* 696* SODIUM mmol/L 137 -- -- POTASSIUM mmol/L 4.1 -- -- CHLORIDE mmol/L 99 -- -- CO2 mmol/L 30 -- -- BUN mg/dL 14 -- -- CREATININE mg/dL 1.18 -- -- GLUCOSE mg/dL 92 -- -- CALCIUM mg/dL 11.3* -- -- MAGNESIUM mg/dL 1.94 -- -- PHOSPHORUS mg/dL 2.6 -- -- ALBUMIN g/dL 3.3* -- -- Imaging: FL modified barium swallow study Result Date: 12/16/2024 Interpreted By: Jayson Abdi and Charla Benavides STUDY: [place] MODIFIED BARIUM SWALLOW STUDY;; 12/16/2024 9:38 am INDICATION: Signs/Symptoms:r/o any dysphagia. COMPARISON: None. ACCESSION NUMBER(S): [id number] ORDERING CLINICIAN: GIBSON MENDIOLA TECHNIQUE: MBSS completed. Informed verbal consent obtained prior to completion of exam. Trials of thin, nectar thick, puree, and regular solids given. Fluoroscopy time : 1.8 minutes. Total of 2800 images were provided for review. 100 mL barium contrast. SCREWHEAD POLISHER: Makayla Dunham Phone/Pager: [employer] SPEECH FINDINGS: Patient Name: Kevan La : 1975 Today's Date: 12/16/24 Start Time: 845 Stop Time: 915 Time Calculation (min): 30 min Modified Barium Swallow Study completed. Informed verbal consent obtained prior to completion of exam. Trials of thin liquid, mildly thick liquid, puree, and solids were given. SCREWHEAD POLISHER: MINDY Camp Contact info: [employer] Reason for Referral: C/f aspiration/oropharyngeal dysphagia Patient Hx: Kevan La is a 49 y.o. male with history of hidradenitis supprativa refractory to numerous medications, invasive SCC dx in Oct 2024 both affecting the LLE who was transferred to [facility] due to concerns for worsening infection in the LLE. Pt is stable with no s/s of systemic infection. High suspicion for necrotic oncologic mass over fluid collection. No indication for I&D. Requested outside images from rads op, recommend requesting radiology overread. Consider MRI to further evaluation of soft tissue/mass Respiratory Status: Room air Current diet: Easy to Chew Solids and Thin Liquids Pain: Endorses gluteal pain, poor positioning because of this. DIET RECOMMENDATIONS: - Easy to Chew (IDDSI Level 7) - Thin liquids (IDDSI Level 0) STRATEGIES: Upright for all PO intake Remain upright for 20-30 min after eating Small bites/sips Alternate food and liquids SCREWHEAD POLISHER PLAN: Skilled SCREWHEAD POLISHER Services: Skilled SCREWHEAD POLISHER intervention for dysphagia is warranted. SCREWHEAD POLISHER Frequency: 2x per week Duration: 1-2 weeks Treatment/Interventions: - Diet tolerance/advancement Discussed POC: patient Discussed Risks/Benefits: Yes Patient/Caregiver Agreeable: Yes Short term goals established: Pt will tolerate least restrictive diet with no overt clinical s/s aspiration 100% of the time. Start Date: 12/15/24 End Date: 01/15/25 Status: Progressing Education Provided: Results and recommendations per MBSS, with video review; recommendations and POC at this time. Verbal understanding and agreement given on all accounts. Treatment Provided Today: SCREWHEAD POLISHER provided extensive education and training to pt/pt family regarding anatomy/physiology of swallow function, risk factors of aspiration/aspiration pna & how to mitigate factors, diet modifications, and the use of compensatory swallow strategies to promote pt safety upon PO intake. Additional Medical Consults Suggested: N/A Repeat Study: N/A Mechanics of the Swallow Summary: ORAL PHASE: Lip Closure - Intact Tongue Control During Bolus Hold - Intact Bolus prep/mastication - Impaired Bolus transport/lingual motion - Intact Oral residue - absent PHARYNGEAL PHASE: Initiation of pharyngeal swallow - Impaired Soft palate elevation - Intact Laryngeal elevation - Intact Anterior hyoid excursion - Intact Epiglottic movement - Impaired Laryngeal vestibule closure - Impaired Pharyngeal stripping wave - Intact Pharyngeal contraction (A/P view) - Not tested Pharyngoesophageal segment opening - Intact Tongue base retraction - Intact Pharyngeal residue - absent ESOPHAGEAL PHASE: Esophageal clearance - Intact *Of note: The A-P bolus follow-through is not intended to be utilized as a diagnostic assessment of the esophagus, rather a tool to observe the biomechanical aspects of the swallow continuum and to inform the need for further evaluation by medical specialists, as applicable. SCREWHEAD POLISHER Impressions with Severity Rating: Pt presenting with mild oropharyngeal dysphagia. Given trials of thin liquid, mildly thick liquid, puree, and soft solids. During straw sips of thin and mildly thick liquids, pt penetrated however remained above the vocal folds with minimal residues present. No penetration/aspiration seen with puree or solid consistencies. No significant residues present across trials. Oral Phase - Pt has adequate bolus formation, control, and A-P transit. Mastication and bolus formation for puree and solids is functional yet slightly prolonged (pt is edentulous). Pharyngeal Phase - Pt has slightly delayed swallow initiation e/b moderate amount of thin and mildly thick liquids reaching the level of the pyriform sinus at initiation of swallow. Intermittent limited inversion of the epiglottis and slightly reduced laryngeal vestibule closure at swallow onset results in penetration of min amounts of thin liquids and mildly thick liquids during the swallow. No contact to the vocal folds and min amount of residues. Esophageal Phase - Oblique view obtained, suspect within normal limits for clearance SCREWHEAD POLISHER recommends cautious initiation of thin liquids and easy to chew diet. See additional PO intake guidelines outlined below. If pt demonstrates any change/decline in medical/mental/respiratory status please make NPO and alert SCREWHEAD POLISHER. Will continue to follow while in acute care setting to ensure diet tolerance and use of safe swallow guidelines. aware of recommendations Rosenbek's Penetration Aspiration Scale Thin Liquids: 3. PENETRATION with LOW ASPIRATION risk - contrast remains above vocal cords, visible residue [place] Thick Liquids: 3. PENETRATION with LOW ASPIRATION risk - contrast remains above vocal cords, visible residue Puree: 1. NO ASPIRATION & NO PENETRATION - no aspiration, contrast does not enter airway Solids: 1. NO ASPIRATION & NO PENETRATION - no aspiration, contrast does not enter airway Speech Therapy section of this report signed by Makayla Dunham on 12/16/2024 at 3:05 pm. RADIOLOGY FINDINGS: The included lateral cervical spine is unremarkable. Radiology section of this report signed by Jayson Abdi MD. Swallow evaluation as dictated above by speech pathology. I personally reviewed the images/study and I agree with the findings as stated by resident Dilan Hester. This study was interpreted at [facility], [place], [place]. 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 November 29 initial diagnosis Next Steps: To start immunotherapy with cemiplimab, 21-day cycles Assessment and Plan: Kevan La is a 49 y.o. male with refractory hidradenitis supprativa (HS) and invasive SCC transferred for left gluteal lesion with worsening odor and drainage. Surgical oncology indicates no surgical intervention indicated at this time, recommend systemic therapy and discussion before oncologic resection. Wound is unlikely a result of worsening infection but will continue antibiotics. Medically stable. Updates 12/18/24: - Continue augmentin 875 BID (12/16-01/12) - Awaiting SNF pre-cert/placement - Appointment with Dr. 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 There is a large overlying wound with cutaneous thickening and subcutaneous edema. ::Pt was d/stephanie 11/27 with one month of Augmentin. :: 12/13 MRI pelvis with complex process combination of ulcerating mass superimposed on hidradenitis suppurativa of the left gluteal skin and thigh with associated cellulitis. It is difficult to clearly separate what in the skin is hidradenitis suppurativa and malignancy. Plan: - Wound care following - Surgical oncology follow up outpatient - Derm appointment scheduled - Continue augmentin 875 BID (12/16-01/12) #Invasive SCC # Left Gluteus lesions ::biopsy diagnosed 11/15/24. :: Has not started treatment, plan was for cemiplimab 12/[address] Jiang Plan: - Zofran and compazine for nausea - methadone 10mg q8h - Supportive oncology following, appreciate recs - Continue home gabapentin - Continue holding ferrous gluconate given possible infection - Plan for outpatient immunotherapy, not possible inpatient Diet: Full DVT prophylaxis: Lovenox Code status: FULL CODE NOK: Omkar La (brother, ) Patient and plan discussed with attending physician. Fer Gupta MD ([facility]) IM PGY-1 Cosigned by Mack Frias MD at 12/18/2024 4:00 PM EDT Associated attestation - Mack Frias MD - 12/18/2024 4:00 PM EDT I saw and evaluated the patient. I personally obtained the gomez and critical portions of the history and physical exam or was physically present for gomez and critical portions performed by the resident/fellow. I reviewed the resident/fellow's documentation and discussed the patient with the resident/fellow. I agree with the resident/fellow's medical decision making as documented in the note. Acupuncture Visit: Kevan La was referred by Cristiana Evans . Pain Assessment Pain Type: Acute pain Pain Interventions: Medication (See MAR) Provider reviewed plan for the acupuncture session, precautions and contraindications. Patient/guardian/hospital staff has given consent to treat with full understanding of what to expect during thesession. Before acupuncture began, provider explained to the patient to communicate at any time if the procedure was causing discomfort past their tolerance level. Patient agreed to advise circular stuffer. The circular stuffer counseled the patient on the risks of acupuncture treatment including pain, infection, bleeding, and no relief of pain. The patient was positioned comfortably. There was no evidence of infection at the site of needle insertions. No annotated images are attached to the encounter. Post-treatment Assessment 0-10 (Numeric) Pain Score: 8 Massage Therapy / Acupuncture Note: Kevan La is a 49 y.o. male on day 10 of admission presenting with Gluteal abscess. Subjective Pt resting in bed. When offered integrative heme/onc services, pt requesting additional education. Objective Physical Exam Vitals and nursing note reviewed. Constitutional: General: He is not in acute distress. Appearance: Normal appearance. He is normal weight. He is ill-appearing. HENT: Head: Normocephalic and atraumatic. Nose: Nose normal. Mouth/Throat: Mouth: Mucous membranes are moist. Eyes: Extraocular Movements: Extraocular movements intact. Pupils: Pupils are equal, round, and reactive to light. Cardiovascular: Rate and Rhythm: Normal rate. Pulmonary: Effort: Pulmonary effort is normal. Abdominal: General: Abdomen is flat. Palpations: Abdomen is soft. Skin: General: Skin is warm and dry. Neurological: General: No focal deficit present. Mental Status: He is alert and oriented to person, place, and time. Mental status is at baseline. Psychiatric: Mood and Affect: Mood normal. Affect is flat. Behavior: Behavior normal. Thought Content: Thought content normal. Judgment: Judgment normal. Last Recorded Vitals Blood pressure 113/56, pulse 70, temperature 37.1 C (98.8 F), temperature source Temporal, resp. rate 16, height 2.006 m (6' 6.98"), weight 89.4 kg (197 lb 1.5 oz), SpO2 96%. Intake/Output last 3 Shifts: I/O last 3 completed shifts: In: 240 (2.7 mL/kg) [P.O.:240] Out: 1950 (21.8 mL/kg) [Urine:1950 (0.6 mL/kg/hr)] Weight: 89.4 kg Relevant Results Scheduled medications acetaminophen, 975 mg, oral, q8h amoxicillin-pot clavulanate, 1 tablet, oral, q12h BERNADETTE bisacodyl, 10 mg, rectal, Daily chlorhexidine, , Topical, BID cholecalciferol, 1,000 Units, oral, Daily clindamycin, , Topical, BID enoxaparin, 40 mg, subcutaneous, Daily folic acid, 1 mg, oral, Daily gabapentin, 300 mg, oral, BID lidocaine, 0.1 mL, subcutaneous, Once melatonin, 3 mg, oral, Nightly methadone, 10 mg, oral, q8h polyethylene glycol, 17 g, oral, Daily sennosides-docusate sodium, 2 tablet, oral, BID tiZANidine, 2 mg, oral, TID varenicline tartrate, 1 mg, oral, BID Continuous medications PRN medications PRN medications: HYDROmorphone, ondansetron OR ondansetron, oxyCODONE, oxygen, prochlorperazine OR prochlorperazine OR prochlorperazine Results for orders placed or performed during the hospital encounter of 12/07/24 (from the past 24 hours) CBC and Auto Differential Result Value Ref Range WBC 13.4 (H) 4.4 - 11.3 x10*3/uL nRBC 0.0 0.0 - 0.0 /100 WBCs RBC 3.38 (L) 4.50 - 5.90 x10*6/uL Hemoglobin 8.5 (L) 13.5 - 17.5 g/dL Hematocrit 29.0 (L) 41.0 - 52.0 % MCV 86 80 - 100 fL MCH 25.1 (L) 26.0 - 34.0 pg MCHC 29.3 (L) 32.0 - 36.0 g/dL RDW 17.4 (H) 11.5 - 14.5 % Platelets 754 (H) 150 - 450 x10*3/uL Neutrophils % 68.6 40.0 - 80.0 % Immature Granulocytes %, Automated 0.4 0.0 - 0.9 % Lymphocytes % 16.3 13.0 - 44.0 % Monocytes % 9.1 2.0 - 10.0 % Eosinophils % 4.9 0.0 - 6.0 % Basophils % 0.7 0.0 - 2.0 % Neutrophils Absolute 9.17 (H) 1.20 - 7.70 x10*3/uL Immature Granulocytes Absolute, Automated 0.06 0.00 - 0.70 x10*3/uL Lymphocytes Absolute 2.18 1.20 - 4.80 x10*3/uL Monocytes Absolute 1.22 (H) 0.10 - 1.00 x10*3/uL Eosinophils Absolute 0.65 0.00 - 0.70 x10*3/uL Basophils Absolute 0.09 0.00 - 0.10 x10*3/uL Renal function panel Result Value Ref Range Glucose 92 74 - 99 mg/dL Sodium 137 136 - 145 mmol/L Potassium 4.1 3.5 - 5.3 mmol/L Chloride 99 98 - 107 mmol/L Bicarbonate 30 21 - 32 mmol/L Anion Gap 12 10 - 20 mmol/L Urea Nitrogen 14 6 - 23 mg/dL Creatinine 1.18 0.50 - 1.30 mg/dL eGFR 75 >60 mL/min/1.73m*2 Calcium 11.3 (H) 8.6 - 10.6 mg/dL Phosphorus 2.6 2.5 - 4.9 mg/dL Albumin 3.3 (L) 3.4 - 5.0 g/dL Magnesium Result Value Ref Range Magnesium 1.94 1.60 - 2.40 mg/dL [place] modified barium swallow study Result Date: 12/16/2024 Interpreted By: Jayson Abdi and Charla Benavides STUDY: [place] MODIFIED BARIUM SWALLOW STUDY;; 12/16/2024 9:38 am INDICATION: Signs/Symptoms:r/o any dysphagia. COMPARISON: None. ACCESSION NUMBER(S): [id number] ORDERING CLINICIAN: GIBSON MENDIOLA TECHNIQUE: MBSS completed. Informed verbal consent obtained prior to completion of exam. Trials of thin, nectar thick, puree, and regular solids given. Fluoroscopy time : 1.8 minutes. Total of 2800 images were provided for review. 100 mL barium contrast. SCREWHEAD POLISHER: Makayla Dunham Phone/Pager: [phone] SPEECH FINDINGS: Patient Name: Kevan La : 1975 Today's Date: 12/16/24 Start Time: 845 Stop Time: 915 Time Calculation (min): 30 min Modified Barium Swallow Study completed. Informed verbal consent obtained prior to completion of exam. Trials of thin liquid, mildly thick liquid, puree, and solids were given. SCREWHEAD POLISHER: MINDY Camp Contact info: [employer] Reason for Referral: C/f aspiration/oropharyngeal dysphagia Patient Hx: Kevan La is a 49 y.o. male with history of hidradenitis supprativa refractory to numerous medications, invasive SCC dx in Oct 2024 both affecting the LLE who was transferred to [facility] due to concerns for worsening infection in the LLE. Pt is stable with no s/s of systemic infection. High suspicion for necrotic oncologic mass over fluid collection. No indication for I&D. Requested outside images from rads op, recommend requesting radiology overread. Consider MRI to further evaluation of soft tissue/mass Respiratory Status: Room air Current diet: Easy to Chew Solids and Thin Liquids Pain: Endorses gluteal pain, poor positioning because of this. DIET RECOMMENDATIONS: - Easy to Chew (IDDSI Level 7) - Thin liquids (IDDSI Level 0) STRATEGIES: Upright for all PO intake Remain upright for 20-30 min after eating Small bites/sips Alternate food and liquids SCREWHEAD POLISHER PLAN: Skilled SCREWHEAD POLISHER Services: Skilled SCREWHEAD POLISHER intervention for dysphagia is warranted. SCREWHEAD POLISHER Frequency: 2x per week Duration: 1-2 weeks Treatment/Interventions: - Diet tolerance/advancement Discussed POC: patient Discussed Risks/Benefits: Yes Patient/Caregiver Agreeable: Yes Short term goals established: Pt will tolerate least restrictive diet with no overt clinical s/s aspiration 100% of the time. Start Date: 12/15/24 End Date: 01/15/25 Status: Progressing Education Provided: Results and recommendations per MBSS, with video review; recommendations and POC at this time. Verbal understanding and agreement given on all accounts. Treatment Provided Today: SCREWHEAD POLISHER provided extensive education and training to pt/pt family regarding anatomy/physiology of swallow function, risk factors of aspiration/aspiration pna & how to mitigate factors, diet modifications, and the use of compensatory swallow strategies to promote pt safety upon PO intake. Additional Medical Consults Suggested: N/A Repeat Study: N/A Mechanics of the Swallow Summary: ORAL PHASE: Lip Closure - Intact Tongue Control During Bolus Hold - Intact Bolus prep/mastication - Impaired Bolus transport/lingual motion - Intact Oral residue - absent PHARYNGEAL PHASE: Initiation of pharyngeal swallow - Impaired Soft palate elevation - Intact Laryngeal elevation - Intact Anterior hyoid excursion - Intact Epiglottic movement - Impaired Laryngeal vestibule closure - Impaired Pharyngeal stripping wave - Intact Pharyngeal contraction (A/P view) - Not tested Pharyngoesophageal segment opening - Intact Tongue base retraction - Intact Pharyngeal residue - absent ESOPHAGEAL PHASE: Esophageal clearance - Intact *Of note: The A-P bolus follow-through is not intended to be utilized as a diagnostic assessment of the esophagus, rather a tool to observe the biomechanical aspects of the swallow continuum and to inform the need for further evaluation by medical specialists, as applicable. SCREWHEAD POLISHER Impressions with Severity Rating: Pt presenting with mild oropharyngeal dysphagia. Given trials of thin liquid, mildly thick liquid, puree, and soft solids. During straw sips of thin and mildly thick liquids, pt penetrated however remained above the vocal folds with minimal residues present. No penetration/aspiration seen with puree or solid consistencies. No significant residues present across trials. Oral Phase - Pt has adequate bolus formation, control, and A-P transit. Mastication and bolus formation for puree and solids is functional yet slightly prolonged (pt is edentulous). Pharyngeal Phase - Pt has slightly delayed swallow initiation e/b moderate amount of thin and mildly thick liquids reaching the level of the pyriform sinus at initiation of swallow. Intermittent limited inversion of the epiglottis and slightly reduced laryngeal vestibule closure at swallow onset results in penetration of min amounts of thin liquids and mildly thick liquids during the swallow. No contact to the vocal folds and min amount of residues. Esophageal Phase - Oblique view obtained, suspect within normal limits for clearance SCREWHEAD POLISHER recommends cautious initiation of thin liquids and easy to chew diet. See additional PO intake guidelines outlined below. If pt demonstrates any change/decline in medical/mental/respiratory status please make NPO and alert SCREWHEAD POLISHER. Will continue to follow while in acute care setting to ensure diet tolerance and use of safe swallow guidelines. MD aware of recommendations Rosenbek's Penetration Aspiration Scale Thin Liquids: 3. PENETRATION with LOW ASPIRATION risk - contrast remains above vocal cords, visible residue [place] Thick Liquids: 3. PENETRATION with LOW ASPIRATION risk - contrast remains above vocal cords, visible residue Puree: 1. NO ASPIRATION & NO PENETRATION - no aspiration, contrast does not enter airway Solids: 1. NO ASPIRATION & NO PENETRATION - no aspiration, contrast does not enter airway Speech Therapy section of this report signed by Makayla Dunham on 12/16/2024 at 3:05 pm. RADIOLOGY FINDINGS: The included lateral cervical spine is unremarkable. Radiology section of this report signed by Jayson Abdi MD. Swallow evaluation as dictated above by speech pathology. I personally reviewed the images/study and I agree with the findings as stated by resident Dilan Hester. This study was interpreted at [facility], [place], [place]. MACRO: None Signed by: Jayson Abdi 12/16/2024 4:54 PM Dictation workstation: [id number] ECG 12 Lead Result Date: 12/16/2024 Normal sinus rhythm Normal ECG When compared with ECG of 12-DEC-2024 12:27, (unconfirmed) No significant change was found MR femur left w and wo IV contrast Result Date: 12/12/2024 Interpreted By: Kong Armijo and Mason Montague STUDY: MRI of the left femur with and without contrast dated 12/12/2024. INDICATION: Gluteal abscess/malignancy. Biopsy result of squamous cell carcinoma. History of chronic hidradenitis suppurativa. COMPARISON: None. Correlation is made with 12/06/2024 and 11/19/2024 CT examinations. ACCESSION NUMBER(S): [id number] ORDERING CLINICIAN: GIBSON MENDIOLA TECHNIQUE: Multiplanar multisequence MRI of the left femur was performed with and without intravenous gadolinium based contrast. FINDINGS: LIMITATIONS: Examination is limited due to the complexity of the soft tissue process discussed below. OSSEOUS STRUCTURES: No fracture or dislocation is evident. Bone marrow signal intensity is within normal limits. Degenerative changes of the knee with small joint effusion. ASSOCIATED SOFT TISSUES: Large heterogenous predominantly STIR hyperintense solid mass of the posterior left thigh soft tissues with diffuse peripheral enhancement and predominantly internal hypoenhancement measuring 7.5 X 15.0 x 10.0 cm. There are few foci of air within the mass without a discrete fluid collection. The mass is mostly within the subcutaneous soft tissues with involvement of the skin and large multifocal overlying skin ulceration. There is adjacent diffuse soft tissue edema and skin thickening. The anterior aspect of the mass appears to involve the inferior gluteus randell muscle and the posterior aspect of the hamstrings musculature with some intramuscular enhancement/edema and involvement of the proximal hamstring tendons. The greatest degree of muscle invasion appears to be into the gluteus randell muscle. There is thickening of the skin of the left gluteal region extending to the lateral thigh, and extending inferiorly into the thigh with multiple scattered foci of high T2 low T1 signal intensity within the skin such as seen at image 6, 17, 20, 27, 30, 35, and 41 of the axial plane some are also seen laterally such as at image 9 in the axial plane. Some of these foci have rim enhancement. There is inguinal lymphadenopathy with the largest lymph node measuring up to approximately 1.4 x 3.1 cm. There are iliac chain lymph nodes with the largest measuring up to approximately 1.8 x 2.9 cm. There is a prominent lymph node in the perirectal/ischioanal fat measuring a proximally 0.9 x 0.9 cm such is seen image 65 of the axial plane. There is a nodule adjacent to the sciatic neurovascular bundle seen at image 8 in the axial plane measuring a proximally 0.5 x 0.8 cm. Another nodule is seen adjacent to the posterior surface of the proximal femoral metadiaphysis seen image 40 of the axial plane measuring 0.8 x 1.3 cm. Additional abnormal appearing lymph nodes adjacent to the left sciatic neurovascular bundle adjacent to the greater sciatic foramen and posterior to the mid femur. Mild feathery increased T2 signal intensity is seen in the adductor musculature. Reticular increased T2 signal intensity is seen in the subcutaneous tissues with reticular post-contrast enhancement. The sciatic neurovascular bundle appears to be spared at this time. Multiple outpouchings of the posterior urinary bladder, partially visualized and likely presenting diverticuli. 1. Complex process involving the soft tissues of the posterior proximal thigh most compatible with a combination of large ulcerating mass (Marjolin's ulcer) centered in the subcutaneous tissues with underlying involvement of at least the gluteus randell and posterior aspects of the proximal hamstrings muscle/tendons superimposed on hidradenitis suppurativa of the left gluteal skin and thigh with associated cellulitis. It is difficult to clearly separate what in the skin is hidradenitis suppurativa and malignancy due to the invasive nature of the mass. Foci of gas are seen within the mass which could be related to open nature of process, recent intervention, and/or infection of the mass. 2. Inguinal, internal iliac chain, perirectal/ischioanal lymphadenopathy and prominent lymph node along the sciatic neurovascular bundle. This may represent reactive and/or malignant lymphadenopathy. Small nodule along the posterior proximal surface of the femoral metadiaphysis may represent an additional lymph node versus a satellite nodule of malignancy. 3. Nonspecific edema in the adductor musculature, possibly reactive in nature. MACRO: None Signed by: Kong Armijo 12/12/2024 1:33 PM Dictation workstation: [id number] MR femur left wo IV contrast Result Date: 12/12/2024 Interpreted By: Kong Armijo, and Mason Montague STUDY: MRI of the left femur with and without contrast dated 12/10/2024. 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 History of chronic hidradenitis suppurativa. COMPARISON: Correlation is made with 12/06/2024 and 11/19/2024 CT examinations. ACCESSION NUMBER(S): [id number] ORDERING CLINICIAN: TOYA RUBIO TECHNIQUE: Multiplanar multisequence MRI of the left femur was performed with and without intravenous gadolinium based contrast. FINDINGS: No images were obtained as the patient was unable to cooperate for the exam. No images were obtained as the patient was unable to cooperate for the exam. MACRO: None Signed by: Kong Armijo 12/12/2024 1:18 PM Dictation workstation: [id number] CT pelvis w IV contrast Result Date: 12/06/2024 [facility]AN LA : 1975 [id number] Exam Date/Time: 12/06/2024 12:46 Procedure: CT PELVIS W IV CONTRAST Ordering Provider: HOLLINS MICHAEL Reason For Exam: large left hip and upper thigh wounds, concern for possible osteomyelitis Examination: CT pelvis Indication: large left hip and upper thigh wounds, concern for possible osteomyelitis Technique: Axial CT images of the pelvis were obtained at 1 mm intervals following intravenous contrast administration of 75 mL Isovue-370. Sagittal and coronal reconstructions were reviewed as well. Dose reduction was employed with automatic exposure control. Findings: Large fluid collection present within the proximal left upper thigh measuring 8.5 x 8.4 cm in axial dimension and 16.5 cm in length. There is a large overlying wound with cutaneous thickening and subcutaneous edema. There is at least moderate joint space loss of the bilateral sacroiliac joints. Probable few small bladder diverticula present, posteriorly. Impression: Large wound along the proximal posterior thigh with large abscess within the posterior compartment of the left upper thigh. There is also presumed cellulitis. No obvious acute cortical erosion. Please note, the marrow is not assessed on a CT examination. Report Dictated on Electronically Signed By: Tess Carter MD Electronically Signed Date/Time: 12/06/2024 1:[address] chest abdomen pelvis w IV contrast Result Date: 11/19/2024 Interpreted By: Ravin Hyatt and Omar Mahmoud STUDY: CT CHEST ABDOMEN PELVIS W IV CONTRAST; 11/19/2024 2:43 pm INDICATION: Signs/Symptoms:new dx of invasive SCC, eval for mets. Per EMR: Patient with history of hydradenitis suppurativa with chronic left gluteal wound and recent biopsy positive for well-differentiated invasive squamous cell carcinoma. COMPARISON: CT pelvis 11/08/2024. ACCESSION NUMBER(S): [id number] ORDERING CLINICIAN: CLAUDIO PLUNKETT TECHNIQUE: CT of the chest, abdomen, and pelvis was performed. Contiguous axial images were obtained at 3 mm slice thickness through the chest, abdomen and pelvis. Coronal and sagittal reconstructions at 3 mm slice thickness were performed. 90 ML of Omnipaque 350 was administered intravenously without immediate complication. FINDINGS: CHEST: LUNG/PLEURA/LARGE AIRWAYS: [id number] upper lobe predominant centrilobular and paraseptal emphysema. Right basilar atelectasis/scarring. There is a 4 mm pulmonary nodule within the left upper lobe (series 301, image 17). There is no pneumothorax. There is no pleural effusion. VESSELS: Aorta and pulmonary arteries are normal caliber. No atherosclerotic changes of the aorta are identified. HEART: The heart is normal in size. There is no pericardial effusion. MEDIASTINUM AND DAREK: No mediastinal, hilar or axillary lymphadenopathy is present. The esophagus is unremarkable. CHEST WALL AND LOWER NECK: The soft tissues of the chest wall demonstrate no gross abnormality. The visualized thyroid gland appears within normal limits. ABDOMEN: LIVER: The liver measures 19.8 cm in craniocaudal dimension. There are no focal liver lesions. BILE DUCTS: The intrahepatic and extrahepatic ducts are not dilated. GALLBLADDER: The gallbladder is nondistended and without evidence of radiopaque stones. PANCREAS: The pancreas appears unremarkable without evidence of ductal dilatation or masses. SPLEEN: The spleen is normal in size without focal lesions. ADRENAL GLANDS: Bilateral adrenal glands appear normal. KIDNEYS AND URETERS: The kidneys are normal in size and enhance symmetrically. Mild fullness of the right extrarenal pelvis. No hydroureteronephrosis. No nephroureterolithiasis. No focal renal lesions. PELVIS: BLADDER: Bladder wall is not thickened. Multiple bladder wall diverticuli. REPRODUCTIVE ORGANS: The prostate is not enlarged. BOWEL: The stomach is unremarkable. The small and large bowel are normal in caliber and demonstrate no wall thickening. The appendix appears normal. VESSELS: There is no aneurysmal dilatation of the abdominal aorta. The IVC appears normal. Mild atherosclerosis of the abdominal aorta and its branches. PERITONEUM/RETROPERITONEUM/LYMPH NODES: No ascites or free air, no fluid collection. Stable left pelvic sidewall lymph node 1.3 cm in maximum short axis dimension (series 301, image 200). Stable possible conglomerate left superficial inguinal lymph node measures 1.8 cm in maximum short axis dimension (series 301, image 212). An additional stable left superficial inguinal lymph node measures 1.7 cm in maximum short axis dimension (series 301, image 196). Additionally, there are prominent subcentimeter retroperitoneal lymph nodes which are primarily found superiorly to the level of the common iliac arteries. BONE AND SOFT TISSUE: Soft tissue tract within the medial left gluteal wall which appears to extend to the anus (series 301, image 240). Skin thickening within the posterosuperior right thigh up to 1.1 cm (series 301, image 249). Left gluteal skin thickening up to 2.3 cm (series 301, image 233). Stable size of a left gluteal mass involving the left gluteus randell and left gluteus minimus which currently measures 12.8 x 9.0 cm (series 301, image 252), previously measuring 13.4 by 8.9 on 11/08/2024. There is an exophytic nodule measuring 4.5 x 3.4 cm (series 301, image 275) extending posteriorly from the posterior left superior thigh which is continuous with the dominant left gluteal mass (series 303, image 113). No suspicious osseous lesions are identified. 1. Stable size of a left gluteal mass involving left gluteus randell and minimus which is in continuity with a more inferior exophytic posterior nodule, in keeping with patient's known pathological diagnosis of squamous cell carcinoma. 2. There are enlarged/prominent left superficial inguinal, left pelvic sidewall, and retroperitoneal lymph nodes extending superiorly to the level of the common iliac arteries. These may represent sites of metastatic disease or may be reactive secondary to patient's history of hidradenitis suppurativa. PET-CT is recommended to assist in further delineation. 3. Soft tissue tract within the medial left gluteal wall with apparent extension to the anus which may represent a perianal fistula. MRI can be considered for further evaluation. 4. There is a 4 mm pulmonary nodule within left upper lobe of indeterminate chronicity. Attention on follow-up examinations is recommended. 5. Pxrc-nrnrzvt-uutq-right skin thickening extending from the sacral region to the proximal thigh, in keeping with patient's background of hydradenitis suppurativa. 6. Clap-fr-ifwihvzc upper lobe predominant centrilobular and paraseptal emphysema. I personally reviewed the images/study and I agree with the findings as stated by Elenita Munroe MD (PGY-2). This study was interpreted at [facility], [place], [place]. MACRO: None Signed by: Ravin Hyatt 11/19/2024 4:54 PM Dictation workstation: [id number] Assessment/Plan Assessment & Plan Gluteal abscess [facility] Integrative Medicine Symptom Management program offers multi-disciplinary supervised care of cancer patients using Integrative Modalities billed to insurance using NCCN and SIO/ASCO guideline-driven practices. Integrative hematology/oncology consult team introduced to pt. Non-pharmacological symptom management interventions reviewed, including: Reiki, meditation, mindfulness practices, guided imagery, as well as acupuncture, acupressure, and gentle bodywork. Pt requested additional information regarding services; handout and visual education provided. Pt requesting follow up when next available (available on ). Music therapy, art therapy, dental therapist and pet therapy offered to pt, pt declined; pt stated the sales and marketing coordinator has been following. Left gluteal pain: pain related to malignancy, lesions Pain is well-controlled Defer to supportive oncology team for adequate PO/IV pain regimen Recommend integrative therapy modalities as pt allows: -Acupuncture; provided pt education today. Pt declined services, requesting follow up when next available -Acupressure, peña sha -Gentle bodywork and stretching as tolerated -Art therapy -Music therapy -Chocolatier -Pet therapy Altered Mood: Anxiety and/or depression r/t health concerns History of anxiety/depression -Recommend integrative medicine modalities as listed above Mindfulness Brittney: AMDtx, Calm, Headspace, Insight Timer Guided Imagery Meditation (15 min in the morning) - consider mindfulness (Mindfulness based Stress Reduction) Apps such as CALM or Headspace Deep breathing: Alternate nostril breathing and Deep abdominal breathing (5 min) in the morning [facility] - Guided Meditation Thank you for allowing us to participate in the care of this patient. Integrative Medicine Team will continue to follow as needed. Please contact team with any questions or concerns. TRAVIS Patel (available by [employer]) [facility] Inpatient Integrative Medicine I spent 45 minutes in the care of this patient which included chart review, interviewing patient/family, discussion with primary team, coordination of care, and documentation. Medical Decision Making was high level due to high complexity of problems, extensive data review, and high risk of management/treatment. 12/09/24 1000 Discharge Planning Living Arrangements Other (Comment);Alone (admitted from [facility]) Support Systems Family members;Other (Comment) (SNF staff, SNF SW) Assistance Needed skilled, PT/OT Type of Residence nursing home facility Do you have animals or pets at home? No Home or Post Acute Services Post acute facilities (Rehab/SNF/etc) (return to [facility]) Type of Post Acute Facility Services nursing home Expected Discharge Disposition SNF Does the patient need discharge transport arranged? Yes RoundTrip coordination needed? Yes Has discharge transport been arranged? No Patient Choice Provider Choice list and CMS website (https://medicare.gov/care-compar e#search) for post-acute Quality and Resource Measure Data were provided and reviewed with: Patient Patient / Family choosing to utilize agency / facility established prior to hospitalization Yes SW met with pt to introduce role and discuss discharge planning. Pt admitted from [facility]; pt reports that he's been there on and off since September. Pt confirmed demographic and insurance details. SW contact details written on the whiteboard in pt room. Return referral sent to [facility]. SW will follow. Fer Hidalgo [facility] 12/09/2024 1040 Per [facility], pt's current auth expires on 12/11. Further discharge planning pending updates from the care team. SW will follow. [facility] 12/11/2024 1030 Pt auth for [facility] expires today. Clinical updates sent to facility. Further discharge planning pending updates from the care team. SW will follow. [facility] 12/16/2024 0955 Once PT and OT see pt for updated notes, [facility]. SW will follow. [facility] 12/17/2024 1030 PT and OT saw pt this morning. Clinicals and therapy notes sent to facility. Facility was notified to initiate precert for pt to return. Care team notified SW that pt reported he doesn't want to return to [facility]. SW met with pt to check in and he reports that he has been telling everyone for days that he would prefer not to [facility] SW offered to give pt a SNF choice list. After more conversation, pt decided to return to the SNF because his things are there and because he does not want to delay his treatment any further. SW let him know that the facility can assist him in transferring to another facility. Care team updated. [facility]O sent the SNF pt's [facility] with his appt information. Pt is medically ready for discharge. SW will follow. Fer [facility]idal[facility] 12/17/2024 1120 Per facility: "Auth Submitted - Pending Reference # [id number]" Liaison is confirming that there are no barriers to providing transport for pt's oncology appt on Monday. [facility] will follow. Fer [facility]idal[facility] Physical Therapy Treatment Patient Name: Kevan La Today's Date: 12/17/2024 Room: [address] [place] [address] Time Calculation Start Time: 39 Stop Time: 1001 Time Calculation (min): 23 min Assessment/Plan PT Assessment PT Assessment Results: Decreased strength, Decreased endurance, Impaired balance, Decreased mobility, Pain Rehab Prognosis: Good Barriers to Discharge Home: Caregiver assistance, Physical needs Caregiver Assistance: Patient lives alone and/or does not have reliable caregiver assistance Physical Needs: Stair navigation into home limited by function/safety, In-home setup navigation limited by function/safety, Ambulating household distances limited by function/safety, High falls risk due to function or environment Evaluation/Treatment Tolerance: Patient limited by pain Medical Staff Made Aware: Yes Strengths: Attitude of self Barriers to Participation: Comorbidities End of Session Communication: Bedside nurse End of Session Patient Position: Bed, 3 rail up, Alarm off, not on at start of session PT Plan Inpatient/Swing Bed or Outpatient: Inpatient PT Plan Treatment/Interventions: Bed mobility, Transfer training, Gait training, Stair training, Balance training, Strengthening, Endurance training, Range of motion, Therapeutic exercise, Therapeutic activity PT Plan: Ongoing PT PT Frequency: 3 times per week PT Discharge Recommendations: Moderate intensity level of continued care Equipment Recommended upon Discharge: (Owns) PT Recommended Transfer Status: Assist x1 PT - OK to Discharge: Yes Assessment: Patient is limited by pain for all mobility and lacks social support to assist at home. Would continue to benefit from continued skilled PT to address all mobility deficits; Patient remains appropriate for MOD intensity therapy when medically ready for discharge from acute stay. Will continue to follow. General Visit Information: PT Visit PT Received On: 12/17/24 Prior to Session Communication: Bedside nurse Patient Position Received: Bed, 3 rail up Subjective Subjective: Pt pleasant and agreeable to therapy upon approach Precautions: Precautions Medical Precautions: Fall precautions Vital Signs: Objective Pain: Pain Assessment Pain Assessment: 0-10 0-10 (Numeric) Pain Score: 8 Pain Type: Acute pain Pain Location: Buttocks Cognition: Cognition Overall Cognitive Status: Within Functional Limits Orientation Level: Oriented X4 Insight: Within function limits Impulsive: Within functional limits PT Treatments: Therapeutic Activity Therapeutic Activity 1: educated pt on proper positioning in sidelying to prevent pressure sores and proper alignment since he states this is the only position that he can tolerate Bed Mobility 1 Bed Mobility 1: Supine to sitting, Sitting to supine Level of Assistance 1: Close supervision Bed Mobility Comments 1: Pt rolling to R, immediately bringing LEs off EOB into stand, as he cannot tolerate pressure through his L glue. Pt also gets into bed using tall kneeling strategy before getting comfortable in sidelying Ambulation/Gait Training 1 Surface 1: Level tile Device 1: Rolling walker Assistance 1: Close supervision Quality of Gait 1: Wide base of support, Antalgic, Forward flexed posture, Decreased step length Comments/Distance (ft) 1: 65' limited B knee flexion pt states he is worried bending knees will cause more pain. Very forward flexed posture Transfer 1 Transfer From 1: Sit to Transfer to 1: Stand Technique 1: Sit to stand, Stand to sit Transfer Device 1: Walker Transfer Level of Assistance 1: Close supervision Trials/Comments 1: stands/sits sideways onto surface d/t pain Activity tolerance: Activity Tolerance Endurance: Decreased tolerance for upright activites Outcome Measures: [facility] Basic Mobility Turning from your back to your side while in a flat bed without using bedrails: A little Moving from lying on your back to sitting on the side of a flat bed without using bedrails: A little Moving to and from bed to chair (including a wheelchair): A little Standing up from a chair using your arms (e.g. wheelchair or bedside chair): A little To walk in hospital room: A little Climbing 3-5 steps with railing: Total Basic Mobility - Total Score: 16 Education Documentation Body Mechanics, taught by Elham Prado PTA at 12/17/2024 10:22 AM. Learner: Patient Readiness: Acceptance Method: Explanation Response: Verbalizes Understanding Precautions, taught by Elham Prado PTA at 12/17/2024 10:22 AM. Learner: Patient Readiness: Acceptance Method: Explanation Response: Verbalizes Understanding ADL Training, taught by Elham Prado PTA at 12/17/2024 10:22 AM. Learner: Patient Readiness: Acceptance Method: Explanation Response: Verbalizes Understanding Body Mechanics, taught by Elham Prado PTA at 12/17/2024 10:22 AM. Learner: Patient Readiness: Acceptance Method: Explanation Response: Verbalizes Understanding Precautions, taught by Elham Prado PTA at 12/17/2024 10:22 AM. Learner: Patient Readiness: Acceptance Method: Explanation Response: Verbalizes Understanding Mobility Training, taught by Elham Prado PTA at 12/17/2024 10:22 AM. Learner: Patient Readiness: Acceptance Method: Explanation Response: Verbalizes Understanding Education Comments No comments found. OP EDUCATION: Encounter Problems Encounter Problems (Active) Balance STG - Maintains dynamic standing balance with upper extremity support and SBA with no LOB for >60s (Progressing) Start: 12/09/24 Expected End: 12/23/24 INTERVENTIONS:1. Practice standing with minimal support.2. Educate patient about standing tolerance.3. Educate patient about independence with gait, transfers, and ADL's.4. Educate patient about use of assistive device.5. Educate patient about self-directed care. Mobility LTG - Patient will ambulate 100ft with SBA and LRD (Progressing) Start: 12/09/24 Expected End: 12/23/24 LTG - Patient will navigate 1 step with SBA and rails/device to facilitate return to community ambulator (Progressing) Start: 12/09/24 Expected End: 12/23/24 PT Transfers STG - Patient will perform bed mobility with modified independence (Progressing) Start: 12/09/24 Expected End: 12/23/24 STG - Patient will transfer sit to and from stand independently with LRD (Progressing) Start: 12/09/24 Expected End: 12/23/24 Pain - Adult Cosigned by Siva Beach, PT at 12/17/2024 10:36 AM EDT Occupational Therapy Occupational Therapy Treatment Name: Kevan La : 1975 Date: 12/17/24 Room: [address] [place] [address]- Time Calculation Start Time: 0851 Stop Time: 0902 Time Calculation (min): 11 min Assessment: OT Assessment: Pt continues to present with decreased ADL/IADL and functional mobility independence. Pt remains appropriate for MOD intensity OT. Prognosis: Good Barriers to Discharge Home: Caregiver assistance, Physical needs Caregiver Assistance: Caregiver assistance needed per identified barriers - however, no caregiver assistance available at home Physical Needs: Ambulating household distances limited by function/safety, 24hr mobility assistance needed, 24hr ADL assistance needed, High falls risk due to function or environment Evaluation/Treatment Tolerance: Patient limited by pain Medical Staff Made Aware: Yes End of Session Communication: Bedside nurse End of Session Patient Position: Bed, 3 rail up, Alarm off, not on at start of session Plan: Treatment Interventions: ADL retraining, Functional transfer training, Endurance training, Patient/family training, Equipment evaluation/education, Compensatory technique education OT Frequency: 3 times per week OT Discharge Recommendations: Moderate intensity level of continued care Equipment Recommended upon Discharge: (tbd) OT Recommended Transfer Status: Assist of 1 OT - OK to Discharge: Yes (OT eval complete and d/c recs made) Subjective General: OT Last Visit OT Received On: 12/17/24 Reason for Referral: LLE wound with associated abscess Past Medical History Relevant to Rehab: Refractory hidradenitis supprativa and squamous cell carcinoma Prior to Session Communication: Bedside nurse Patient Position Received: Bed, 3 rail up, Alarm off, not on at start of session Family/Caregiver Present: No General Comment: Pt supine in bed and agreeable to therapy. Completed LB dressing and fx mobility and transfer on/off the toilet. Pt remains appropriate for MOD intensity OT Precautions: Medical Precautions: Fall precautions Cognition: Overall Cognitive Status: Within Functional Limits Arousal/Alertness: Appropriate responses to stimuli Orientation Level: Oriented X4 Following Commands: Follows all commands and directions without difficulty Insight: Mild Impulsive: Moderately Processing Speed: Within funtional limits Pain Assessment: Pain Assessment Pain Assessment: 0-10 0-10 (Numeric) Pain Score: 8 Objective Activities of Daily Living: LE Dressing LE Dressing: Yes Pants Level of Assistance: Distant supervision LE Dressing Where Assessed: Bed level LE Dressing Comments: LEs already threaded and waistband past knees, pt brought rest of pants up over hips by bridging while supine in bed Functional Standing Tolerance: Functional Mobility Functional Mobility Performed: Yes Functional Mobility 1 Surface 1: Level tile Device 1: No device Assistance 1: Contact guard Comments 1: MOD household distances to and from the bathroom - pt stabilizing self on furniture during functional mobility and refused use of walker Bed Mobility/Transfers: Bed Mobility Bed Mobility: Yes Bed Mobility 1 Bed Mobility 1: Supine to sitting Level of Assistance 1: Contact guard Bed Mobility Comments 1: Pt with half sit at EOB and quick transition to stand to avoid pressure on L glute Bed Mobility 2 Bed Mobility 2: Sitting to supine Level of Assistance 2: Contact guard Bed Mobility Comments 2: Pt with half sit with quick transition back to supine to avoid pressure on L glute Transfers Transfer: Yes Transfer 1 Transfer From 1: Bed to, Stand to Transfer to 1: Stand, Bed Transfer Device 1: (no device) Transfer Level of Assistance 1: Contact guard Balance: Dynamic Standing Balance Dynamic Standing-Level of Assistance: Contact guard (no device) Static Sitting Balance Static Sitting-Level of Assistance: Close supervision Static Sitting-Comment/Number of Minutes: very few seconds - quick transition to stand and reduced pressure on L glute Static Standing Balance Static Standing-Level of Assistance: Contact guard (no device) Therapy/Activity: Therapeutic Activity Therapeutic Activity Performed: Yes Therapeutic Activity 1: pt completed fx mobility and transfer challenging balance and endurance in preparation for independence in ADL/IADL tasks and further functional mobility; skilled VCs and assist throughout Strength: Strength Strength Comments: BUE WFL via ADLs Outcome Measures: [facility] Daily Activity Putting on and taking off regular lower body clothing: A lot Bathing (including washing, rinsing, drying): A lot Putting on and taking off regular upper body clothing: A little Toileting, which includes using toilet, bedpan or urinal: A lot Taking care of personal grooming such as brushing teeth: A little Eating Meals: A little Daily Activity - Total Score: 15 Brief Confusion Assessment Method (bCAM) CAM Result: CAM - Education Documentation Body Mechanics, taught by Manuela Elmore OT at 12/17/2024 10:16 AM. Learner: Patient Readiness: Eager Method: Explanation Response: Verbalizes Understanding Precautions, taught by Manuela Elmore OT at 12/17/2024 10:16 AM. Learner: Patient Readiness: Eager Method: Explanation Response: Verbalizes Understanding ADL Training, taught by Manuela Elmore OT at 12/17/2024 10:16 AM. Learner: Patient Readiness: Eager Method: Explanation Response: Verbalizes Understanding Education Comments No comments found. Goals: Encounter Problems Encounter Problems (Active) ADLs Patient will perform UB and LB bathing seated EOB with stand by assist level of assistance and long-handled sponge. (Progressing) Start: 12/09/24 Expected End: 01/03/25 Patient with complete upper body dressing with stand by assist level of assistance donning and doffing all UE clothes with no adaptive equipment while edge of bed (Progressing) Start: 12/09/24 Expected End: 01/03/25 Patient with complete lower body dressing with stand by assist level of assistance donning and doffing all LE clothes with PRN adaptive equipment while edge of bed (Progressing) Start: 12/09/24 Expected End: 01/03/25 Patient will complete toileting including hygiene clothing management/hygiene with stand by assist level of assistance and grab bars. (Progressing) Start: 12/09/24 Expected End: 01/03/25 MOBILITY Patient will perform Functional mobility min Household distances with stand by assist level of assistance and front wheeled walker in order to improve safety and functional mobility. (Progressing) Start: 12/09/24 Expected End: 01/03/25 TRANSFERS Patient will perform bed mobility modified independent level of assistance and grab bars in order to improve safety and independence with mobility (Progressing) Start: 12/09/24 Expected End: 01/03/25 Patient will complete functional transfer to all surfaces with front wheeled walker with stand by assist level of assistance. (Progressing) Start: 12/09/24 Expected End: 01/03/25 12/17/24 at 10:18 AM Manuela Elmore OTR/L [phone] Images from the original note were not included. Internal Medicine Daily Progress Note Subjective Interval events: NAEO. Pain stable. No other concerns or complaints at this time. Declined integrative onc. Objective Vitals: Visit Vitals BP 95/55 Comment: rn notified Pulse 70 Temp 36.4 C (97.5 F) Resp 16 Intake/Output Summary (Last 24 hours) at 12/17/2024 0713 Last data filed at 12/17/2024 0348 Gross per 24 hour Intake 240 ml Output 1950 ml Net -1710 ml Physical exam: General: Awake, alert, conversant, NAD HEENT: PERRL, EOMI, no scleral icterus CV: RRR, no M/R/G RESP: Lungs clear to auscultation bilaterally GI: Soft, NTND, no masses, guarding, or rebound tenderness EXT: No peripheral edema, no asymmetry noted Skin: L open gluteal wound with purulent, malodorous drainage, numerous tracts evident on L glute and thigh. Skin discoloration, and protruding mass evident inferior to above wound. Ulcerous lesion on L thigh. Tracts below this lesion with purulent drainage. Bandage over left glute. Neuro: AOx4, moving all limbs spontaneously, follows commands Medications: acetaminophen, 975 mg, oral, q8h amoxicillin-pot clavulanate, 1 tablet, oral, q12h BERNADETTE bisacodyl, 10 mg, rectal, Daily chlorhexidine, , Topical, BID cholecalciferol, 1,000 Units, oral, Daily clindamycin, , Topical, BID enoxaparin, 40 mg, subcutaneous, Daily folic acid, 1 mg, oral, Daily gabapentin, 300 mg, oral, BID lidocaine, 0.1 mL, subcutaneous, Once melatonin, 3 mg, oral, Nightly methadone, 10 mg, oral, q8h polyethylene glycol, 17 g, oral, Daily sennosides-docusate sodium, 2 tablet, oral, BID tiZANidine, 2 mg, oral, TID varenicline tartrate, 1 mg, oral, BID PRN medications: HYDROmorphone, ondansetron OR ondansetron, oxyCODONE, oxygen, prochlorperazine OR prochlorperazine OR prochlorperazine Labs: Results from last 72 hours Lab Units 12/16/24 0600 12/15/24 0813 12/15/24 0600 WBC AUTO x10*3/uL 12.8* 13.9* -- HEMOGLOBIN g/dL 8.3* 8.5* -- HEMATOCRIT % 27.8* 27.6* -- PLATELETS AUTO x10*3/uL 660* 696* -- SODIUM mmol/L -- -- 138 POTASSIUM mmol/L -- -- 4.6 CHLORIDE mmol/L -- -- 100 CO2 mmol/L -- -- 28 BUN mg/dL -- -- 12 CREATININE mg/dL -- -- 1.12 GLUCOSE mg/dL -- -- 107* CALCIUM mg/dL -- -- 10.6 ALBUMIN g/dL -- -- 3.1* ALK PHOS U/L -- -- 65 ALT U/L -- -- 16 AST U/L -- -- 17 BILIRUBIN TOTAL mg/dL -- -- 0.2 Imaging: FL modified barium swallow study Result Date: 12/16/2024 Interpreted By: Jayson Abdi and Patriarca Hannah STUDY: [place] MODIFIED BARIUM SWALLOW STUDY;; 12/16/2024 9:38 am INDICATION: Signs/Symptoms:r/o any dysphagia. COMPARISON: None. ACCESSION NUMBER(S): [id number] ORDERING CLINICIAN: GIBSON MENDIOLA TECHNIQUE: MBSS completed. Informed verbal consent obtained prior to completion of exam. Trials of thin, nectar thick, puree, and regular solids given. Fluoroscopy time : 1.8 minutes. Total of 2800 images were provided for review. 100 mL barium contrast. SCREWHEAD POLISHER: Makayla Dunham Phone/Pager: [employer] SPEECH FINDINGS: Patient Name: Kevan La : 1975 Today's Date: 12/16/24 Start Time: 845 Stop Time: 915 Time Calculation (min): 30 min Modified Barium Swallow Study completed. Informed verbal consent obtained prior to completion of exam. Trials of thin liquid, mildly thick liquid, puree, and solids were given. SCREWHEAD POLISHER: MINDY Camp Contact info: [employer] Reason for Referral: C/f aspiration/oropharyngeal dysphagia Patient Hx: Kevan La is a 49 y.o. male with history of hidradenitis supprativa refractory to numerous medications, invasive SCC dx in Oct 2024 both affecting the LLE who was transferred to [facility] due to concerns for worsening infection in the LLE. Pt is stable with no s/s of systemic infection. High suspicion for necrotic oncologic mass over fluid collection. No indication for I&D. Requested outside images from rads op, recommend requesting radiology overread. Consider MRI to further evaluation of soft tissue/mass Respiratory Status: Room air Current diet: Easy to Chew Solids and Thin Liquids Pain: Endorses gluteal pain, poor positioning because of this. DIET RECOMMENDATIONS: - Easy to Chew (IDDSI Level 7) - Thin liquids (IDDSI Level 0) STRATEGIES: Upright for all PO intake Remain upright for 20-30 min after eating Small bites/sips Alternate food and liquids SCREWHEAD POLISHER PLAN: Skilled SCREWHEAD POLISHER Services: Skilled SCREWHEAD POLISHER intervention for dysphagia is warranted. SCREWHEAD POLISHER Frequency: 2x per week Duration: 1-2 weeks Treatment/Interventions: - Diet tolerance/advancement Discussed POC: patient Discussed Risks/Benefits: Yes Patient/Caregiver Agreeable: Yes Short term goals established: Pt will tolerate least restrictive diet with no overt clinical s/s aspiration 100% of the time. Start Date: 12/15/24 End Date: 01/15/25 Status: Progressing Education Provided: Results and recommendations per MBSS, with video review; recommendations and POC at this time. Verbal understanding and agreement given on all accounts. Treatment Provided Today: SCREWHEAD POLISHER provided extensive education and training to pt/pt family regarding anatomy/physiology of swallow function, risk factors of aspiration/aspiration pna & how to mitigate factors, diet modifications, and the use of compensatory swallow strategies to promote pt safety upon PO intake. Additional Medical Consults Suggested: N/A Repeat Study: N/A Mechanics of the Swallow Summary: ORAL PHASE: Lip Closure - Intact Tongue Control During Bolus Hold - Intact Bolus prep/mastication - Impaired Bolus transport/lingual motion - Intact Oral residue - absent PHARYNGEAL PHASE: Initiation of pharyngeal swallow - Impaired Soft palate elevation - Intact Laryngeal elevation - Intact Anterior hyoid excursion - Intact Epiglottic movement - Impaired Laryngeal vestibule closure - Impaired Pharyngeal stripping wave - Intact Pharyngeal contraction (A/P view) - Not tested Pharyngoesophageal segment opening - Intact Tongue base retraction - Intact Pharyngeal residue - absent ESOPHAGEAL PHASE: Esophageal clearance - Intact *Of note: The A-P bolus follow-through is not intended to be utilized as a diagnostic assessment of the esophagus, rather a tool to observe the biomechanical aspects of the swallow continuum and to inform the need for further evaluation by medical specialists, as applicable. SCREWHEAD POLISHER Impressions with Severity Rating: Pt presenting with mild oropharyngeal dysphagia. Given trials of thin liquid, mildly thick liquid, puree, and soft solids. During straw sips of thin and mildly thick liquids, pt penetrated however remained above the vocal folds with minimal residues present. No penetration/aspiration seen with puree or solid consistencies. No significant residues present across trials. Oral Phase - Pt has adequate bolus formation, control, and A-P transit. Mastication and bolus formation for puree and solids is functional yet slightly prolonged (pt is edentulous). Pharyngeal Phase - Pt has slightly delayed swallow initiation e/b moderate amount of thin and mildly thick liquids reaching the level of the pyriform sinus at initiation of swallow. Intermittent limited inversion of the epiglottis and slightly reduced laryngeal vestibule closure at swallow onset results in penetration of min amounts of thin liquids and mildly thick liquids during the swallow. No contact to the vocal folds and min amount of residues. Esophageal Phase - Oblique view obtained, suspect within normal limits for clearance SCREWHEAD POLISHER recommends cautious initiation of thin liquids and easy to chew diet. See additional PO intake guidelines outlined below. If pt demonstrates any change/decline in medical/mental/respiratory status please make NPO and alert SCREWHEAD POLISHER. Will continue to follow while in acute care setting to ensure diet tolerance and use of safe swallow guidelines. aware of recommendations Dayna's Penetration Aspiration Scale Thin Liquids: 3. PENETRATION with LOW ASPIRATION risk - contrast remains above vocal cords, visible residue [place] Thick Liquids: 3. PENETRATION with LOW ASPIRATION risk - contrast remains above vocal cords, visible residue Puree: 1. NO ASPIRATION & NO PENETRATION - no aspiration, contrast does not enter airway Solids: 1. NO ASPIRATION & NO PENETRATION - no aspiration, contrast does not enter airway Speech Therapy section of this report signed by Makayla Dunham on 12/16/2024 at 3:05 pm. RADIOLOGY FINDINGS: The included lateral cervical spine is unremarkable. Radiology section of this report signed by Jayson Abdi MD. Swallow evaluation as dictated above by speech pathology. I personally reviewed the images/study and I agree with the findings as stated by resident Dilan Hester. This study was interpreted at [place], [place]. 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 November 29 initial diagnosis Next Steps: To start immunotherapy with cemiplimab, 21-day cycles Assessment and Plan: Kevan La is a 49 y.o. male with refractory hidradenitis supprativa (HS) and invasive SCC transferred for left gluteal lesion with worsening odor and drainage. Surgical oncology indicates no surgical intervention indicated at this time, recommend systemic therapy and discussion before oncologic resection. Wound is unlikely a result of worsening infection but will continue antibiotics. Medically stable. Updates 12/17/24: - Continue augmentin 875 BID (12/16-01/12) - Awaiting SNF pre-cert/placement - Not interested in psych/onc-psych referral - Appointment with Dr. Jiang Monday with Infusion #Gluteal wound s/p I&D 10/13 #Refractory hidradenitis suppurativa :: Patient with history of refractory HS having failed multiple modalities, now c/b gluteal abscess which he was admitted for 3 weeks ago s/p I&D, BCx with marta puentesa s/p Unasyn complete 10/28/2024 ::CT 12/06: Large fluid collection present within the proximal left upper thigh measuring 8.5 x 8.4 cm in axial dimension and 16.5 cm in length. There is a large overlying wound with cutaneous thickening and subcutaneous edema. ::Pt was d/stephanie 11/27 with one month of Augmentin. :: 12/13 MRI pelvis with complex process combination of ulcerating mass superimposed on hidradenitis suppurativa of the left gluteal skin and thigh with associated cellulitis. It is difficult to clearly separate what in the skin is hidradenitis suppurativa and malignancy. Plan: - Wound care following - Surgical oncology follow up outpatient - Continue Ceftriaxone 2 gm IV daily with 500mg metronidazole po tid (For odor) while admitted, augmentin 875 BID home-going plan is for total 28 days course of Abx. - Will transition to augmentin 875 BID here for home-going (plan is for total 28 days course) #Invasive SCC # Left Gluteus lesions ::biopsy diagnosed 11/15/24. :: Has not started treatment, plan was for cemiplimab 12/[address] Jiang Plan: - Zofran and compazine for nausea - methadone 10mg q8h - Supportive oncology following, appreciate recs - Continue home gabapentin - Continue holding ferrous gluconate given possible infection - Plan for outpatient immunotherapy, not possible inpatient Diet: Full DVT prophylaxis: Lovenox Code status: FULL CODE NOK: Omkar La (brother, ) Patient and plan discussed with attending physician. Fer Gupta MD (Wes) IM PGY-1 Cosigned by Mack Frias MD at 12/17/2024 5:54 PM EDT Associated attestation - Mack Frias MD - 12/17/2024 5:54 PM EDT I saw and evaluated the patient. I personally obtained the gomez and critical portions of the history and physical exam or was physically present for gomez and critical portions performed by the resident/fellow. I reviewed the resident/fellow's documentation and discussed the patient with the resident/fellow. I agree with the resident/fellow's medical decision making as documented in the note. Music Therapy Note Kevan La Therapy Session Referral Type: New referral this admission Visit Type: Follow-up visit Session Start Time: 1345 Session End Time: 143 Intervention Delivery: In-person Conflict of Service: None Family Present for Session: None Pre-assessment Pain Score: 7 Stress Level (0-10): 7 Anxiety Level (0-10): 4 Coping Level (0-10): 9 Mood/Affect: Anxious, Calm, Cooperative, Participative Verbalized Emotional State: Frustration Treatment/Interventions Areas of Focus: Emotional support, Stress reduction, Self-expression, Coping Music Therapy Interventions: Iso-principle, Music sharing/discussion, David analysis Interruption: No Patient Fell Asleep at End of Session: No Post-assessment 0-10 (Numeric) Pain Score: 7 Stress Level (0-10): 7 Anxiety Level (0-10): 2 Coping Level (0-10): 9 Total Session Time (min): 45 minutes Narrative Assessment Detail: Pt presented awake, sitting up in bed with HOB raised with a flat affect. Pt verbalized feelings of stress and frustration with not feeling ready with upcoming discharge and anxiety about starting outpatient treatment. Pt quickly agreed to a music therapy session. Plan: MTI engaged pt in the iso-principle, live music listening, music sharing/discussion and david analysis to assist with stress reduction, self-expression, coping and emotional support. Intervention: Pt engaged by listening as MTI utilized the iso-principle to sing and self-accompany on guitar pt-preferred songs. Pt engaged by discussing and analyzing lyrics to the song, "Dancing in the Dark" by Rony Sr. Evaluation: Pt responded by shifting gaze in the direction of MTI. Pt also reponded by creating a mantra from the song, "Dancing in the Dark" and processing the song verbally. Pt related the song to his life specifically with the uncertainties and stressors life's presenting. Pt responded by choosing from a list of songs to end the session with and thanked MTI. Follow-up: MTI will continue to f/u throughout pt's admission. Patient Comments: "trapped" Education Documentation No documentation found. Physical Therapy Therapy Communication Note Patient Name: Kevan La Department: [facility] Room: [address] [place] [address] Today's Date: 12/16/2024 Discipline: Physical Therapy PT Missed Visit: Yes Missed Visit Reason: Missed Visit Reason: Patient sleeping (attempted twice and pt sleeping . would not wake up to name . Will reattempt as schedule permits.) Missed Time: Attempt Comment: Occupational Therapy Therapy Communication Note Patient Name: Kevan La Department: [facility] Room: [address] [place], [place] [address]- Today's Date: 12/16/2024 Discipline: Occupational Therapy OT Missed Visit: Yes Missed Visit Reason: Patient sleeping (Attempt 2x this AM; pt in sound sleep/declines OT this AM; will reattempt as schedule permits) Missed Time: Attempt Janny Andres (OTR/L, OTD) Inpatient Occupational Therapist Rehab Office: [phone] 12/09/24 1000 Discharge Planning Living Arrangements Other (Comment);Alone (admitted from [facility]) Support Systems Family members;Other (Comment) (SNF staff, SNF SW) Assistance Needed skilled, PT/OT Type of Residence nursing home facility Do you have animals or pets at home? No Home or Post Acute Services Post acute facilities (Rehab/SNF/etc) (return to [facility]) Type of Post Acute Facility Services nursing home Expected Discharge Disposition SNF Does the patient need discharge transport arranged? Yes RoundTrip coordination needed? Yes Has discharge transport been arranged? No Patient Choice Provider Choice list and CMS website (https://medicare.gov/care-compar e#search) for post-acute Quality and Resource Measure Data were provided and reviewed with: Patient Patient / Family choosing to utilize agency / facility established prior to hospitalization Yes SW met with pt to introduce role and discuss discharge planning. Pt admitted from [facility]; pt reports that he's been there on and off since September. Pt confirmed demographic and insurance details. SW contact details written on the whiteboard in pt room. Return referral sent to [facility]. SW will follow. Fer [facility] 12/09/2024 1040 Per [facility], pt's current auth expires on 12/11. Further discharge planning pending updates from the care team. SW will follow. Fer Hidalgo [facility] 12/11/2024 1030 Pt auth for [facility] expires today. Clinical updates sent to facility. Further discharge planning pending updates from the care team. SW will follow. Fer [facility] 12/16/2024 0955 Once PT and OT see pt for updated notes, [facility] will initiate precert. SW will follow. Fer Hidalgo [facility] SUPPORTIVE AND PALLIATIVE ONCOLOGY INPATIENT FOLLOW-UP SERVICE DATE: 12/16/24 Updates and Recommendations (12/16/24): Change gabapentin 300mg PO BID Continue scheduled methadone 10mg [id number] 12/12/24, eligible for increase 12/17/24 Discontinue bisacodyl PRN Start scheduled bisacodyl 10mg IN once daily Consider one time enemas as needed, per primary discretion [effective last admission at resolving constipation] ASSESSMENT/PLAN: Kevan La is a 49 y.o. male with invasive SCC. PMHx significant for refractory hidradenitis supprativa (HS). Admitted 12/07/2024 for further evaluation and management of LLE and L gluteus cellulitis with worsening odor and drainage. Supportive and Palliative Oncology is following for pain management. Neoplasm Related Pain L gluteal pain 2/2 known malignancy. Pain type: Somatic, possible neuropathic component Pain control: Fairly controlled Home regimen: oxycodone IR 20mg q3h PRN, fentanyl 75mcg/h TD patch q72h, gabapentin 300mg once daily HS Intolerances: None Risk factors: None Renal and hepatic function WNL. Continue scheduled acetaminophen 975mg PO q8h Change gabapentin 300mg PO BID Continue tizanidine 2mg PO TID Continue scheduled methadone 10mg [id number] 12/12/24, eligible for increase 12/17/24 Continue oxycodone IR 20mg PO q3h PRN for moderate to sever pain Continue hydromorphone 1mg IV q2h PRN for breakthrough pain Nausea At risk for nausea with vomiting related to opioids. Home regimen: None EKG reviewed from 11/10/24, QTc 416. No more recent EKG uploaded to EMR. Currently denies Continue ondansetron 4mg PO/IV q8h PRN for n/v, first line Continue prochlorperazine 10mg PO/IV q6h PRN for n/v, second line Constipation At risk for constipation related to medication side effects (including opioids), currently mildly constipated. Usual bowel pattern: Every day Home regimen: Miralax, Leda-Colace LBM: 12/14/24 per chart review, though pt endorses feeling constipated Continue scheduled Miralax 17g PO once daily Continue scheduled Leda-Colace 2 tab PO BID Discontinue bisacodyl PRN Start scheduled bisacodyl 10mg IN once daily Consider one time enemas as needed, per primary discretion [effective last admission at resolving constipation] Goal to have BM without straining q48-72h, adjust regimen as needed Encourage mobility as tolerated, PT/OT following Disposition: Please start the process of having prior authorization with meds to beds deliver medications to patient prior to discharge via [facility] pharmacy. Prescriptions will need to be sent 48-72 hours prior to discharge so that a prior authorization can be completed. Discharge date pending resolution of acute hospital issues. Patient has an appointment with outpatient Supportive Oncology with Astrid Watson CNP, on 12/30/24. SIGNATURE: Jami Lance APRN-NEHAL PAGER/CONTACT: Contact information: Supportive and Palliative Oncology Monday-Monday 8 AM-5 PM [email or web address] Secure chat or pager [phone]. After hours and weekends: pager [phone] == SUBJECTIVE: Pain Assessment: Location: Left gluteus, LLE Duration: Constant Characteristics: Ratin/10, "it's alright" Descriptors: Throbbing, sharp, and burning Aggravating: Movement, pressure Relieving: Analgesics, positioning, and modifying activity Interference with Function: Somewhat Opioid Requirements Past 24h opioid requirements: (12/15-12/16, [id number]) methadone 10mg x 3 = 30mg oxycodone IR 20mg x 6 = 120mg = 150 OME Total 24h OME use: methadone 30mg, 150 OME Symptom Assessment: Nausea: none Constipation: somewhat Difficulty Sleeping: a little Information obtained from: chart review, interview of patient, and discussion with primary team ____ OBJECTIVE: Lab Results Component Value Date WBC 12.8 (H) 12/16/2024 HGB 8.3 (L) 12/16/2024 HCT 27.8 (L) 12/16/2024 MCV 85 12/16/2024 PLT 660 (H) 12/16/2024 Lab Results Component Value Date GLUCOSE 107 (H) 12/15/2024 CALCIUM 10.6 12/15/2024 NA 138 12/15/2024 K 4.6 12/15/2024 CO2 28 12/15/2024 CL 100 12/15/2024 BUN 12 12/15/2024 CREATININE 1.12 12/15/2024 Lab Results Component Value Date ALT 16 12/15/2024 AST 17 12/15/2024 ALKPHOS 65 12/15/2024 BILITOT 0.2 12/15/2024 Estimated Creatinine Clearance: 98.7 mL/min (by C-G formula based on SCr of 1.12 mg/dL). Scheduled medications acetaminophen, 975 mg, oral, q8h cefTRIAXone, 2 g, intravenous, q24h chlorhexidine, , Topical, BID cholecalciferol, 1,000 Units, oral, Daily clindamycin, , Topical, BID enoxaparin, 40 mg, subcutaneous, Daily [Held by provider] ferrous sulfate, 325 mg, oral, Daily with breakfast folic acid, 1 mg, oral, Daily gabapentin, 300 mg, oral, Nightly lidocaine, 0.1 mL, subcutaneous, Once melatonin, 3 mg, oral, Nightly methadone, 10 mg, oral, q8h metroNIDAZOLE, 500 mg, oral, q8h BERNADETTE polyethylene glycol, 17 g, oral, Daily sennosides-docusate sodium, 2 tablet, oral, BID tiZANidine, 2 mg, oral, TID varenicline tartrate, 1 mg, oral, BID Continuous medications PRN medications bisacodyl, 10 mg, Daily PRN fentaNYL PF, 25 mcg, q5 min PRN fentaNYL PF, 50 mcg, q5 min PRN hydrALAZINE, 5 mg, q30 min PRN HYDROmorphone, 0.5 mg, q5 min PRN HYDROmorphone, 1 mg, q2h PRN labetaloL, 5 mg, Once PRN ondansetron, 4 mg, q8h PRN Or ondansetron, 4 mg, q8h PRN ondansetron, 4 mg, Once PRN oxyCODONE, 20 mg, q3h PRN oxyCODONE, 5 mg, q4h PRN oxygen, , Continuous PRN - O2/gases prochlorperazine, 10 mg, q6h PRN Or prochlorperazine, 10 mg, q6h PRN Or prochlorperazine, 25 mg, q12h PRN PHYSICAL EXAMINATION: Vital Signs: Vital signs reviewed Visit Vitals BP 109/67 (BP Location: Right arm, Patient Position: Lying) Pulse 85 Temp 36.6 C (97.9 F) (Temporal) Resp 16 0-10 (Numeric) Pain Score: 7 Physical Exam Vitals reviewed. Constitutional: Comments: Drowsy, awake, thin gentleman laying on his R side in bed. No signs of acute distress. Pleasant, cooperative, and participating in interview. HENT: Head: Comments: Normocephalic, atraumatic. Eyes: Comments: Sclera clear, EOM intact. Pulmonary: Comments: Symmetrical chest rise. Regular rate and depth of respirations. Room air. Abdominal: Comments: Abdomen non distended, non tender. Musculoskeletal: Comments: Generalized muscle weakness and atrophy. SHEPARD x4. No visible extremity edema. Skin: Comments: No lesions, rash, or abrasions present on visible skin. Skin color appropriate for ethnicity. Neurological: Comments: A&Ox4, follows commands, no apparent sensory deficits. Psychiatric: Comments: Mood and behavior appropriate. PALLIATIVE CARE ENCOUNTER: Supportive and Palliative Oncology encounter: Spoke with patient at bedside. Emotional support provided. Coordination of care: medication and symptom re-evaluation Medical Decision Making/Goals of Care/Advance Care Planning: (Per Emile Segovia, SENIOR DATABASE ENGINEER's, note on 12/08/24) Patient's current clinical condition, including diagnosis, prognosis, and management plan, and goals of care were discussed. Life limiting disease: SCC of UNK primary Family: Supportive though live in [place] Performance status: Moderate limitations due to pain Joys/meaning/strength: Family and [place] Understanding of health: Demonstrates good prognostic understanding of disease process, understands plan for treatment of cellulitis and aggressive pain management. Additionally increased wound drainage and odor. Hopeful to get back to rehab soon as he was making significant progress there. Information:Wants full disclosure Goals: symptom control Worries and fears now and future: ongoing symptoms Code status discussion: Discussed previously and Full code Advance Directives Existence of Advance Directives: None Decision maker: Surrogate decision maker is brotherOmkar ([phone]) == Signature and billing: Medical complexity was high level due to due to complexity of problems, extensive data review, and high risk of management/treatment. I spent 50 minutes in the care of this patient which included chart review, interviewing patient/family, discussion with primary team, coordination of care, and documentation. Data: Diagnostic tests and information reviewed for today's visit: Conversation with primary team, Most recent labs and imaging results, Most recent EKG, Medications Some elements copied from Emile Segovia CNP's, note on 12/12/24, the elements have been updated and all reflect current decision making from today, 12/16/24. Plan of Care discussed with: Primary team, pt Thank you for asking Supportive and Palliative Oncology to assist with care of this patient. Recommendations will be communicated back to the consulting service by way of shared electronic medical record/secure chat/email or [id number]. We will continue to follow. Please contact us for additional questions or concerns. SIGNATURE: TRAVIS Huizar PAGER/CONTACT: Contact information: Supportive and Palliative Oncology Monday-Monday 8 AM-5 PM, [email or web address] Secure chat or pager [phone]. After hours and weekends: pager [phone] Images from the original note were not included. Internal Medicine Daily Progress Note Subjective Interval events: NAEO. Pain stable. No other concerns or complaints at this time. Objective Vitals: Visit Vitals BP 101/65 Pulse 86 Temp 36.6 C (97.9 F) (Temporal) Resp 16 Intake/Output Summary (Last 24 hours) at 12/16/2024 0718 Last data filed at 12/15/2024 1839 Gross per 24 hour Intake 340 ml Output 900 ml Net -560 ml Physical exam: General: Awake, alert, conversant, NAD HEENT: PERRL, EOMI, no scleral icterus CV: RRR, no M/R/G RESP: Lungs clear to auscultation bilaterally GI: Soft, NTND, no masses, guarding, or rebound tenderness EXT: No peripheral edema, no asymmetry noted Skin: L open gluteal wound with purulent, malodorous drainage, numerous tracts evident on L glute and thigh. Skin discoloration, and protruding mass evident inferior to above wound. Ulcerous lesion on L thigh. Tracts below this lesion with purulent drainage. Bandage over left glute. Neuro: AOx4, moving all limbs spontaneously, follows commands Medications: acetaminophen, 975 mg, oral, q8h cefTRIAXone, 2 g, intravenous, q24h chlorhexidine, , Topical, BID cholecalciferol, 1,000 Units, oral, Daily clindamycin, , Topical, BID enoxaparin, 40 mg, subcutaneous, Daily [Held by provider] ferrous sulfate, 325 mg, oral, Daily with breakfast folic acid, 1 mg, oral, Daily gabapentin, 300 mg, oral, Nightly lidocaine, 0.1 mL, subcutaneous, Once melatonin, 3 mg, oral, Nightly methadone, 10 mg, oral, q8h metroNIDAZOLE, 500 mg, oral, q8h BERNADETTE polyethylene glycol, 17 g, oral, Daily sennosides-docusate sodium, 2 tablet, oral, BID tiZANidine, 2 mg, oral, TID varenicline tartrate, 1 mg, oral, BID PRN medications: bisacodyl, fentaNYL PF, fentaNYL PF, hydrALAZINE, HYDROmorphone, HYDROmorphone, labetaloL, ondansetron OR ondansetron, ondansetron, oxyCODONE, oxyCODONE, oxygen, prochlorperazine OR prochlorperazine OR prochlorperazine Labs: Results from last 72 hours Lab Units 12/15/24 0813 12/15/24 0600 12/14/24 0605 WBC AUTO x10*3/uL 13.9* -- 11.4* HEMOGLOBIN g/dL 8.5* -- 8.1* HEMATOCRIT % 27.6* -- 27.8* PLATELETS AUTO x10*3/uL 696* -- 699* SODIUM mmol/L -- 138 -- POTASSIUM mmol/L -- 4.6 -- CHLORIDE mmol/L -- 100 -- CO2 mmol/L -- 28 -- BUN mg/dL -- 12 -- CREATININE mg/dL -- 1.12 -- GLUCOSE mg/dL -- 107* -- CALCIUM mg/dL -- 10.6 -- ALBUMIN g/dL -- 3.1* -- ALK PHOS U/L -- 65 -- ALT U/L -- 16 -- AST U/L -- 17 -- BILIRUBIN TOTAL mg/dL -- 0.2 -- Imaging: No results found. 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 November 29 initial diagnosis Next Steps: To start immunotherapy with cemiplimab, 21-day cycles Assessment and Plan: Kevan La is a 49 y.o. male with refractory hidradenitis supprativa (HS) and invasive SCC transferred for left gluteal lesion with worsening odor and drainage. Surgical oncology indicates no surgical intervention indicated at this time, recommend systemic therapy and discussion before oncologic resection. Wound is unlikely a result of worsening infection but will continue antibiotics. Medically stable. Updates 12/16/24: - Plan to stop Stop Ceftriaxone 2 gm IV daily with 500mg metronidazole po tid (For odor) - Will transition to augmentin 875 BID here for home-going (plan is for total 28 days course) - MBS complete, no concerns. SCREWHEAD POLISHER recommends thin and easy to chew - Appreciate supportive oncology recs - Awaiting SNF pre-cert/placement #Gluteal wound s/p I&D 10/13 #Refractory hidradenitis suppurativa :: Patient with history of refractory HS having failed multiple modalities, now c/b gluteal abscess which he was admitted for 3 weeks ago s/p I&D, BCx with slacynthiaia dhavala s/p Unasyn complete 10/28/2024 ::CT 12/06: Large fluid collection present within the proximal left upper thigh measuring 8.5 x 8.4 cm in axial dimension and 16.5 cm in length. There is a large overlying wound with cutaneous thickening and subcutaneous edema. ::Pt was d/stephanie 11/27 with one month of Augmentin. :: 12/13 MRI pelvis with complex process combination of ulcerating mass superimposed on hidradenitis suppurativa of the left gluteal skin and thigh with associated cellulitis. It is difficult to clearly separate what in the skin is hidradenitis suppurativa and malignancy. Plan: - Wound care following - Surgical oncology follow up outpatient - Continue Ceftriaxone 2 gm IV daily with 500mg metronidazole po tid (For odor) while admitted, augmentin 875 BID home-going plan is for total 28 days course of Abx. - Will transition to augmentin 875 BID here for home-going (plan is for total 28 days course) #Invasive SCC # Left Gluteus lesions ::biopsy diagnosed 11/15/24. :: Has not started treatment, plan was for cemiplimab 12/[address] Jiang Plan: - Zofran and compazine for nausea - methadone 10mg q8h - Supportive oncology following, appreciate recs - Continue home gabapentin - Continue holding ferrous gluconate given possible infection - Plan for outpatient immunotherapy, not possible inpatient Diet: Full DVT prophylaxis: Lovenox Code status: FULL CODE NOK: Omkar La (brother, ) Patient and plan discussed with attending physician. Fer Gupta MD (Wes) IM PGY-1 Cosigned by Mack Frias MD at 12/16/2024 3:45 PM EDT Associated attestation - Mack Frias MD - 12/16/2024 3:45 PM EDT I saw and evaluated the patient. I personally obtained the gomez and critical portions of the history and physical exam or was physically present for gomez and critical portions performed by the resident/fellow. I reviewed the resident/fellow's documentation and discussed the patient with the resident/fellow. I agree with the resident/fellow's medical decision making as documented in the note. Speech-Language Pathology Adult Inpatient Clinical Bedside Swallow Evaluation Patient Name: Kevan La Today's Date: 12/15/2024 Start Time: 1350 Stop Time: 1415 Time Calculation (min): 25 min History of Present Illness: Kevan La is a 49 y.o. male with history of hidradenitis supprativa refractory to numerous medications, invasive SCC dx in Oct 2024 both affecting the LLE who was transferred to [facility] due to concerns for worsening infection in the LLE. Pt is stable with no s/s of systemic infection. High suspicion for necrotic oncologic mass over fluid collection. No indication for I&D. Requested outside images from rads op, recommend requesting radiology overread. Consider MRI to further evaluation of soft tissue/mass Assessment: Clinical bedside swallow evaluation completed. Pt cleared for participation by RN. Pt seen lying in bed, A&O x4, pleasant and participative. Pt reports difficulties with solid foods the last few days, reporting "cotton mouth" in the mornings and feeling a stuck sensation. No issues with liquids. Pt is edentulous, strong volitional cough. Pt given straw sips of water x5, 3 oz water protocol, 4 oz applesauce, steven doone cookie. Pt with no overt s/s of aspiration upon timely completion of 3 oz protocol. Pt with adequate clearance of puree, reports some difficulty with cookie feeling "stuck", pointing to hyoid bone region. No s/s of aspiration at bedside. SCREWHEAD POLISHER recommends thin liquid and easy to chew diet. An MBSS was offered to the pt due to pt reported symptoms and pt accepts. MBSS to completed next date. MD and nursing made aware. Recommendations: Thin liquids and easy to chew diet MBSS next date for bolus sensation with solids Goal: Pt will tolerate least restrictive diet with no overt clinical s/s aspiration 100% of the time. Start Date: 12/15/24 End Date: 01/15/25 Status: Goal Initiated this date Plan: [employer] Services Indicated: Yes Frequency: 2x week Discussed POC with patient S[employer] - OK to Discharge Pain: 0-10 0 = No pain. Inpatient Education: Extensive education provided to patient regarding current swallow function, recommendations/results, and POC. Consultations/Referrals/Coordinat ion of Services: N/A Images from the original note were not included. Internal Medicine Daily Progress Note Subjective Interval events: NAEO. Pain stable. No other concerns or complaints at this time. Objective Vitals: Visit Vitals BP 101/66 (BP Location: Right arm, Patient Position: Lying) Pulse 88 Temp 36.4 C (97.5 F) (Temporal) Resp 18 Intake/Output Summary (Last 24 hours) at 12/15/2024 0814 Last data filed at 12/14/2024 2100 Gross per 24 hour Intake 250 ml Output 1475 ml Net -1225 ml Physical exam: General: Awake, alert, conversant, NAD HEENT: PERRL, EOMI, no scleral icterus CV: RRR, no M/R/G RESP: Lungs clear to auscultation bilaterally GI: Soft, NTND, no masses, guarding, or rebound tenderness EXT: No peripheral edema, no asymmetry noted Skin: L open gluteal wound with purulent, malodorous drainage, numerous tracts evident on L glute and thigh. Skin discoloration, and protruding mass evident inferior to above wound. Ulcerous lesion on L thigh. Tracts below this lesion with purulent drainage. Bandage over left glute. Neuro: AOx4, moving all limbs spontaneously, follows commands Medications: acetaminophen, 975 mg, oral, q8h cefTRIAXone, 2 g, intravenous, q24h chlorhexidine, , Topical, BID cholecalciferol, 1,000 Units, oral, Daily clindamycin, , Topical, BID enoxaparin, 40 mg, subcutaneous, Daily [Held by provider] ferrous sulfate, 325 mg, oral, Daily with breakfast folic acid, 1 mg, oral, Daily gabapentin, 300 mg, oral, Nightly lidocaine, 0.1 mL, subcutaneous, Once melatonin, 3 mg, oral, Nightly methadone, 10 mg, oral, q8h metroNIDAZOLE, 500 mg, oral, q8h BERNADETTE polyethylene glycol, 17 g, oral, Daily sennosides-docusate sodium, 2 tablet, oral, BID tiZANidine, 2 mg, oral, TID varenicline tartrate, 1 mg, oral, BID PRN medications: bisacodyl, fentaNYL PF, fentaNYL PF, hydrALAZINE, HYDROmorphone, HYDROmorphone, labetaloL, ondansetron OR ondansetron, ondansetron, oxyCODONE, oxyCODONE, oxygen, prochlorperazine OR prochlorperazine OR prochlorperazine Labs: Results from last 72 hours Lab Units 12/15/24 0813 12/15/24 0600 12/14/24 0605 12/13/24 0607 WBC AUTO x10*3/uL 13.9* -- 11.4* 11.1 HEMOGLOBIN g/dL 8.5* -- 8.1* 7.6* HEMATOCRIT % 27.6* -- 27.8* 25.4* PLATELETS AUTO x10*3/uL 696* -- 699* 663* SODIUM mmol/L -- 138 -- 139 POTASSIUM mmol/L -- 4.6 -- 4.1 CHLORIDE mmol/L -- 100 -- 102 CO2 mmol/L -- 28 -- 29 BUN mg/dL -- 12 -- 15 CREATININE mg/dL -- 1.12 -- 1.01 GLUCOSE mg/dL -- 107* -- 126* CALCIUM mg/dL -- 10.6 -- 10.1 MAGNESIUM mg/dL -- -- -- 1.97 PHOSPHORUS mg/dL -- -- -- 2.2* ALBUMIN g/dL -- 3.1* -- 3.1* ALK PHOS U/L -- 65 -- -- ALT U/L -- 16 -- -- AST U/L -- 17 -- -- BILIRUBIN TOTAL mg/dL -- 0.2 -- -- Imaging: No results found. 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 November 29 initial diagnosis December 09: To start chemotherapy with cemiplimab, 21-day cycles Assessment and Plan: Kevan aL is a 49 y.o. male with refractory hidradenitis supprativa (HS) and invasive SCC transferred for left gluteal lesion with worsening odor and drainage. Surgical oncology indicates no surgical intervention indicated at this time, recommend systemic therapy and discussion before oncologic resection. Wound is unlikely a result of worsening infection but will continue antibiotics. Updates 12/15/24: - Continue Ceftriaxone 2 gm IV daily with 500mg metronidazole po tid (For odor) while admitted - Considering transition to augmentin 875 BID here before home-going (plan is for total 28 days course) - Required IV dilaudid overnight, but per pt. Po meds seem to be working well #Gluteal wound s/p I&D 10/13 #Refractory hidradenitis suppurativa :: Patient with history of refractory HS having failed multiple modalities, now c/b gluteal abscess which he was admitted for 3 weeks ago s/p I&D, BCx with slackia exigua s/p Unasyn complete 10/28/2024 ::CT 12/06: Large fluid collection present within the proximal left upper thigh measuring 8.5 x 8.4 cm in axial dimension and 16.5 cm in length. There is a large overlying wound with cutaneous thickening and subcutaneous edema. ::Pt was d/stephanie 11/27 with one month of Augmentin. :: 12/13 MRI pelvis with complex process combination of ulcerating mass superimposed on hidradenitis suppurativa of the left gluteal skin and thigh with associated cellulitis. It is difficult to clearly separate what in the skin is hidradenitis suppurativa and malignancy. Plan: - Wound care following - Surgical oncology follow up outpatient - Continue Ceftriaxone 2 gm IV daily with 500mg metronidazole po tid (For odor) while admitted, augmentin 875 BID home-going plan is for total 28 days course of Abx. #Invasive SCC # Left Gluteus lesions ::biopsy diagnosed 11/15/24. :: Has not started treatment, plan was for cemiplimab 12/[address] Jiang Plan: - Zofran and compazine for nausea - methadone 10mg q8h - Supportive oncology following, appreciate recs - Continue home gabapentin - Continue holding ferrous gluconate given possible infection - Plan for outpatient immunotherapy, not possible inpatient Diet: Full DVT prophylaxis: Lovenox Code status: FULL CODE NOK: Omkar La (brother, ) Patient and plan discussed with attending physician. Fer Gupta MD (Wes) IM PGY-1 I have seen and evaluated the patient with Dr. Fer Gupta (Wes), a resident. I reviewed the patient s medical and family history, the resident's findings on physical examination, and the patient s diagnosis and treatment plan with the resident. I discussed the case with the resident in details and agree with the findings and plan as documented in the resident s note. 49 y.o. male with invasive SCC transferred for left gluteal lesion with worsening odor and drainage. This morning, no acute events or new physical complaints. Pain control in progress. MRI hip and femur completed. No surgery planned. They will follow him as outpatient. Continue ceftriaxone 2 gm IV daily with 500mg metronidazole po tid (For odor). Consider transitioning to PO ABX only. Continue to optimize his pain meds. Started to work on dispo planning. Gibson Mendiola MD, PhD Hematology/Oncology Images from the original note were not included. Internal Medicine Daily Progress Note Subjective Interval events: NAEO. Patient states his pain is much better than yesterday. No other concerns or complaints at this time. Objective Vitals: Visit Vitals BP 108/64 (BP Location: Right arm, Patient Position: Lying) Pulse 79 Temp 36.9 C (98.4 F) (Temporal) Resp 18 Intake/Output Summary (Last 24 hours) at 12/14/2024 1144 Last data filed at 12/14/2024 1142 Gross per 24 hour Intake -- Output 1875 ml Net -1875 ml Physical exam: General: Awake, alert, conversant, NAD HEENT: PERRL, EOMI, no scleral icterus CV: RRR, no M/R/G RESP: Lungs clear to auscultation bilaterally GI: Soft, NTND, no masses, guarding, or rebound tenderness EXT: No peripheral edema, no asymmetry noted Skin: L open gluteal wound with purulent, malodorous drainage, numerous tracts evident on L glute and thigh. Skin discoloration, and protruding mass evident inferior to above wound. Ulcerous lesion on L thigh. Tracts below this lesion with purulent drainage. Bandage over left glute. Neuro: AOx4, moving all limbs spontaneously, follows commands Medications: acetaminophen, 975 mg, oral, q8h cefTRIAXone, 2 g, intravenous, q24h chlorhexidine, , Topical, BID cholecalciferol, 1,000 Units, oral, Daily clindamycin, , Topical, BID enoxaparin, 40 mg, subcutaneous, Daily [Held by provider] ferrous sulfate, 325 mg, oral, Daily with breakfast folic acid, 1 mg, oral, Daily gabapentin, 300 mg, oral, Nightly lidocaine, 0.1 mL, subcutaneous, Once melatonin, 3 mg, oral, Nightly methadone, 10 mg, oral, q8h metroNIDAZOLE, 500 mg, oral, q8h BERNADETTE polyethylene glycol, 17 g, oral, Daily sennosides-docusate sodium, 2 tablet, oral, BID sod phos di, mono-K phos mono, 250 mg, oral, 4x daily tiZANidine, 2 mg, oral, TID varenicline tartrate, 1 mg, oral, BID PRN medications: bisacodyl, fentaNYL PF, fentaNYL PF, hydrALAZINE, HYDROmorphone, HYDROmorphone, labetaloL, ondansetron OR ondansetron, ondansetron, oxyCODONE, oxyCODONE, oxygen, prochlorperazine OR prochlorperazine OR prochlorperazine Labs: Results from last 72 hours Lab Units 12/14/24 0605 12/13/24 0607 12/12/24 0604 WBC AUTO x10*3/uL 11.4* 11.1 13.0* HEMOGLOBIN g/dL 8.1* 7.6* 8.1* HEMATOCRIT % 27.8* 25.4* 26.5* PLATELETS AUTO x10*3/uL 699* 663* 630* SODIUM mmol/L -- 139 139 POTASSIUM mmol/L -- 4.1 4.7 CHLORIDE mmol/L -- 102 103 CO2 mmol/L -- 29 30 BUN mg/dL -- 15 14 CREATININE mg/dL -- 1.01 1.15 GLUCOSE mg/dL -- 126* 102* CALCIUM mg/dL -- 10.1 11.1* MAGNESIUM mg/dL -- 1.97 2.01 PHOSPHORUS mg/dL -- 2.2* 2.9 ALBUMIN g/dL -- 3.1* 2.9* 3.0* ALK PHOS U/L -- -- 56 ALT U/L -- -- 7* AST U/L -- -- 6* BILIRUBIN TOTAL mg/dL -- -- 0.2 Imaging: MR femur left w and wo IV contrast Result Date: 12/12/2024 Interpreted By: Kong Armijo and Lawrence Austen STUDY: MRI of the left femur with and without contrast dated 12/12/2024. INDICATION: Gluteal abscess/malignancy. Biopsy result of squamous cell carcinoma. History of chronic hidradenitis suppurativa. COMPARISON: None. Correlation is made with 12/06/2024 and 11/19/2024 CT examinations. ACCESSION NUMBER(S): [id number] ORDERING CLINICIAN: GIBSON MENDIOLA TECHNIQUE: Multiplanar multisequence MRI of the left femur was performed with and without intravenous gadolinium based contrast. FINDINGS: LIMITATIONS: Examination is limited due to the complexity of the soft tissue process discussed below. OSSEOUS STRUCTURES: No fracture or dislocation is evident. Bone marrow signal intensity is within normal limits. Degenerative changes of the knee with small joint effusion. ASSOCIATED SOFT TISSUES: Large heterogenous predominantly STIR hyperintense solid mass of the posterior left thigh soft tissues with diffuse peripheral enhancement and predominantly internal hypoenhancement measuring 7.5 X 15.0 x 10.0 cm. There are few foci of air within the mass without a discrete fluid collection. The mass is mostly within the subcutaneous soft tissues with involvement of the skin and large multifocal overlying skin ulceration. There is adjacent diffuse soft tissue edema and skin thickening. The anterior aspect of the mass appears to involve the inferior gluteus randell muscle and the posterior aspect of the hamstrings musculature with some intramuscular enhancement/edema and involvement of the proximal hamstring tendons. The greatest degree of muscle invasion appears to be into the gluteus randell muscle. There is thickening of the skin of the left gluteal region extending to the lateral thigh, and extending inferiorly into the thigh with multiple scattered foci of high T2 low T1 signal intensity within the skin such as seen at image 6, 17, 20, 27, 30, 35, and 41 of the axial plane some are also seen laterally such as at image 9 in the axial plane. Some of these foci have rim enhancement. There is inguinal lymphadenopathy with the largest lymph node measuring up to approximately 1.4 x 3.1 cm. There are iliac chain lymph nodes with the largest measuring up to approximately 1.8 x 2.9 cm. There is a prominent lymph node in the perirectal/ischioanal fat measuring a proximally 0.9 x 0.9 cm such is seen image 65 of the axial plane. There is a nodule adjacent to the sciatic neurovascular bundle seen at image 8 in the axial plane measuring a proximally 0.5 x 0.8 cm. Another nodule is seen adjacent to the posterior surface of the proximal femoral metadiaphysis seen image 40 of the axial plane measuring 0.8 x 1.3 cm. Additional abnormal appearing lymph nodes adjacent to the left sciatic neurovascular bundle adjacent to the greater sciatic foramen and posterior to the mid femur. Mild feathery increased T2 signal intensity is seen in the adductor musculature. Reticular increased T2 signal intensity is seen in the subcutaneous tissues with reticular post-contrast enhancement. The sciatic neurovascular bundle appears to be spared at this time. Multiple outpouchings of the posterior urinary bladder, partially visualized and likely presenting diverticuli. 1. Complex process involving the soft tissues of the posterior proximal thigh most compatible with a combination of large ulcerating mass (Marjolin's ulcer) centered in the subcutaneous tissues with underlying involvement of at least the gluteus randell and posterior aspects of the proximal hamstrings muscle/tendons superimposed on hidradenitis suppurativa of the left gluteal skin and thigh with associated cellulitis. It is difficult to clearly separate what in the skin is hidradenitis suppurativa and malignancy due to the invasive nature of the mass. Foci of gas are seen within the mass which could be related to open nature of process, recent intervention, and/or infection of the mass. 2. Inguinal, internal iliac chain, perirectal/ischioanal lymphadenopathy and prominent lymph node along the sciatic neurovascular bundle. This may represent reactive and/or malignant lymphadenopathy. Small nodule along the posterior proximal surface of the femoral metadiaphysis may represent an additional lymph node versus a satellite nodule of malignancy. 3. Nonspecific edema in the adductor musculature, possibly reactive in nature. 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 November 29 initial diagnosis December 09: To start chemotherapy with cemiplimab, 21-day cycles Assessment and Plan: Kevan La is a 49 y.o. male with refractory hidradenitis supprativa (HS) and invasive SCC transferred for left gluteal lesion with worsening odor and drainage. Surgical oncology indicates no surgical intervention indicated at this time, recommend systemic therapy and discussion before oncologic resection. Wound is unlikely a result of worsening infection but will continue antibiotics. Updates 12/14/24: - Surgical oncology still no no indication for inpatient management, should follow up with them outpatient - Continue Ceftriaxone 2 gm IV daily with 500mg metronidazole po tid (For odor) while admitted, augmentin 875 BID home-going plan is for total 28 days course of Abx. - 12/13 MRI pelvis with complex process combination of ulcerating mass superimposed on hidradenitis suppurativa of the left gluteal skin and thigh with associated cellulitis. It is difficult to clearly separate what in the skin is hidradenitis suppurativa and malignancy. - The pain is controlled with the current regimen ( his last IV pain meds was yesterday afternoon) #Gluteal wound s/p I&D 10/13 #Refractory hidradenitis suppurativa :: Patient with history of refractory HS having failed multiple modalities, now c/b gluteal abscess which he was admitted for 3 weeks ago s/p I&D, BCx with slacynthiaia dhavala s/p Unasyn complete 10/28/2024 ::CT 12/06: Large fluid collection present within the proximal left upper thigh measuring 8.5 x 8.4 cm in axial dimension and 16.5 cm in length. There is a large overlying wound with cutaneous thickening and subcutaneous edema. ::Pt was d/stephanie 11/27 with one month of Augmentin. :: 12/13 MRI pelvis with complex process combination of ulcerating mass superimposed on hidradenitis suppurativa of the left gluteal skin and thigh with associated cellulitis. It is difficult to clearly separate what in the skin is hidradenitis suppurativa and malignancy. - Surgical oncology still no no indication for inpatient management, should follow up with them outpatient - Continue Ceftriaxone 2 gm IV daily with 500mg metronidazole po tid (For odor) while admitted, augmentin 875 BID home-going plan is for total 28 days course of Abx. Plan: - Wound care following - Surgical oncology still no no indication for inpatient management, should follow up with them outpatient #Invasive SCC # Left Gluteus lesions ::biopsy diagnosed 11/15/24. :: Has not started treatment, plan was for cemiplimab 12/[address] Jiang Plan: - Zofran and compazine for nausea - Stop fentanyl patch - Start methadone 10mg q8h - Supportive oncology following, appreciate recs - Continue home gabapentin - Continue holding ferrous gluconate given possible infection - Plan for outpatient immunotherapy, not possible inpatient Diet: Full DVT prophylaxis: Lovenox Code status: FULL CODE NOK: Omkar La (brother, ) Patient and plan discussed with attending physician. SHANDA Solis PGY2 I have seen and evaluated the patient with Dr. Solis, a resident. I reviewed the patient s medical and family history, the resident's findings on physical examination, and the patient s diagnosis and treatment plan with the resident. I discussed the case with the resident in details and agree with the findings and plan as documented in the resident s note. 49 y.o. male with invasive SCC transferred for left gluteal lesion with worsening odor and drainage. This morning, no acute events or new physical complaints. Pain control in progress. MRI hip and femur completed. No surgery planned. They will follow hiim as outpatient. Continue ceftriaxone 2 gm IV daily with 500mg metronidazole po tid (For odor). Appreciate ID rec, especially to plan for Abx regimen before discharge. Gibson Mendiola MD, PhD Hematology/Oncology Occupational Therapy OT Treatment Patient Name: Kevan La Department: [facility] Room: [address] [place] [address] Today's Date: 12/13/2024 Time Calculation Start Time: 1248 Stop Time: 1331 Time Calculation (min): 43 min Assessment: Barriers to Discharge Home: Caregiver assistance, Physical needs End of Session Communication: Bedside nurse End of Session Patient Position: Bed, 3 rail up, Alarm off, not on at start of session OT Assessment Results: Decreased ADL status, Decreased endurance, Decreased functional mobility, Decreased IADLs Plan: Treatment Interventions: ADL retraining, Functional transfer training, UE strengthening/ROM, Endurance training, Patient/family training, Equipment evaluation/education, Compensatory technique education OT Frequency: 3 times per week OT Discharge Recommendations: Moderate intensity level of continued care OT Recommended Transfer Status: Assist of 1 OT - OK to Discharge: Yes Subjective Previous Visit Info: OT Last Visit OT Received On: 12/13/24 General: General Reason for Referral: LLE wound with associated abscess Past Medical History Relevant to Rehab: Refractory hidradenitis supprativa and squamous cell carcinoma Prior to Session Communication: Bedside nurse Patient Position Received: Bed, 2 rail up, Alarm off, not on at start of session General Comment: Pt supine in bed upon arrival, agreeable to therapy- requesting assist to wash hair this date. Pt assisted with hair care and grooming tasks. Precautions: Medical Precautions: Fall precautions Pain: Pain Assessment Pain Assessment: 0-10 0-10 (Numeric) Pain Score: 7 Pain Location: Buttocks Pain Interventions: Repositioned Objective Cognition: Cognition Overall Cognitive Status: Within Functional Limits Orientation Level: Oriented X4 Activities of Daily Living: Grooming Grooming Comments: MOD A to wash/dry/comb/braid hair while pt seated in shower (leaning to R to avoid pressure to L buttocks, use of handheld hose); MAX A to wash/dry/don lotion to feet while pt seated EOB and feet in banister UE Dressing UE Dressing Comments: SBA to don/doff hosp gown LE Dressing Sock Level of Assistance: (MOD A to don/doff B socks) Bed Mobility/Transfers: Bed Mobility 1 Bed Mobility 1: Supine to sitting, Sitting to supine Level of Assistance 1: Contact guard Bed Mobility Comments 1: pt completes sidelying > quad stance (on BUEs/B knees) to avoid pressure on L buttocks when transitioning supine<>sitting Transfer 1 Technique 1: Sit to stand, Stand to sit Transfer Device 1: (no AD) Transfer Level of Assistance 1: Contact guard Trials/Comments 1: 3x throughout session; pt reena safe body mechanics Transfers 2 Transfer From 2: Bed to Transfer to 2: Chair with arms (in bathroom) Technique 2: (Ambulatory) Transfer Device 2: (no AD) Transfer Level of Assistance 2: Contact guard Outcome Measures: [facility] Daily Activity Putting on and taking off regular lower body clothing: A lot Bathing (including washing, rinsing, drying): A lot Putting on and taking off regular upper body clothing: A little Toileting, which includes using toilet, bedpan or urinal: A lot Taking care of personal grooming such as brushing teeth: A little Eating Meals: None Daily Activity - Total Score: 16 OT Adult Other Outcome Measures 4AT: Negative Education Documentation Body Mechanics, taught by Janny Andres OT at 12/13/2024 1:58 PM. Learner: Patient Readiness: Acceptance Method: Explanation Response: Verbalizes Understanding Precautions, taught by Janny Andres OT at 12/13/2024 1:58 PM. Learner: Patient Readiness: Acceptance Method: Explanation Response: Verbalizes Understanding ADL Training, taught by Janny Andres OT at 12/13/2024 1:58 PM. Learner: Patient Readiness: Acceptance Method: Explanation Response: Verbalizes Understanding Education Comments No comments found. Goals: Encounter Problems Encounter Problems (Active) ADLs Patient will perform UB and LB bathing seated EOB with stand by assist level of assistance and long-handled sponge. (Progressing) Start: 12/09/24 Expected End: 01/03/25 Patient with complete upper body dressing with stand by assist level of assistance donning and doffing all UE clothes with no adaptive equipment while edge of bed (Progressing) Start: 12/09/24 Expected End: 01/03/25 Patient with complete lower body dressing with stand by assist level of assistance donning and doffing all LE clothes with PRN adaptive equipment while edge of bed (Progressing) Start: 12/09/24 Expected End: 01/03/25 Patient will complete toileting including hygiene clothing management/hygiene with stand by assist level of assistance and grab bars. (Progressing) Start: 12/09/24 Expected End: 01/03/25 MOBILITY Patient will perform Functional mobility min Household distances with stand by assist level of assistance and front wheeled walker in order to improve safety and functional mobility. (Progressing) Start: 12/09/24 Expected End: 01/03/25 TRANSFERS Patient will perform bed mobility modified independent level of assistance and grab bars in order to improve safety and independence with mobility (Progressing) Start: 12/09/24 Expected End: 01/03/25 Patient will complete functional transfer to all surfaces with front wheeled walker with stand by assist level of assistance. (Progressing) Start: 12/09/24 Expected End: 01/03/25 Janny Andres (OTR/L, OTD) Inpatient Occupational Therapist Rehab Office: [phone] Images from the original note were not included. Internal Medicine Daily Progress Note Subjective Interval events: NAEO. Patient states his pain is similar to yesterday. No other concerns or complaints at this time. Objective Vitals: Visit Vitals BP 93/55 (BP Location: Right arm, Patient Position: Lying) Pulse 67 Temp 37 C (98.6 F) (Temporal) Resp 16 Intake/Output Summary (Last 24 hours) at 12/13/2024 0748 Last data filed at 12/13/2024 0600 Gross per 24 hour Intake 1250 ml Output 1700 ml Net -450 ml Physical exam: General: Awake, alert, conversant, NAD HEENT: PERRL, EOMI, no scleral icterus CV: RRR, no M/R/G RESP: Lungs clear to auscultation bilaterally GI: Soft, NTND, no masses, guarding, or rebound tenderness EXT: No peripheral edema, no asymmetry noted Skin: L open gluteal wound with purulent, malodorous drainage, numerous tracts evident on L glute and thigh. Skin discoloration, and protruding mass evident inferior to above wound. Ulcerous lesion on L thigh. Tracts below this lesion with purulent drainage. Bandage over left glute. Neuro: AOx4, moving all limbs spontaneously, follows commands Medications: acetaminophen, 975 mg, oral, q8h cefTRIAXone, 2 g, intravenous, q24h chlorhexidine, , Topical, BID cholecalciferol, 1,000 Units, oral, Daily clindamycin, , Topical, BID enoxaparin, 40 mg, subcutaneous, Daily [Held by provider] ferrous sulfate, 325 mg, oral, Daily with breakfast folic acid, 1 mg, oral, Daily gabapentin, 300 mg, oral, Nightly lidocaine, 0.1 mL, subcutaneous, Once melatonin, 3 mg, oral, Nightly methadone, 10 mg, oral, q8h metroNIDAZOLE, 500 mg, oral, q8h BERNADETTE polyethylene glycol, 17 g, oral, Daily sennosides-docusate sodium, 2 tablet, oral, BID tiZANidine, 2 mg, oral, TID varenicline tartrate, 1 mg, oral, BID PRN medications: bisacodyl, fentaNYL PF, fentaNYL PF, hydrALAZINE, HYDROmorphone, HYDROmorphone, labetaloL, ondansetron OR ondansetron, ondansetron, oxyCODONE, oxyCODONE, oxygen, prochlorperazine OR prochlorperazine OR prochlorperazine Labs: Results from last 72 hours Lab Units 12/12/24 0604 12/11/24 0554 WBC AUTO x10*3/uL 13.0* 11.6* HEMOGLOBIN g/dL 8.1* 8.1* HEMATOCRIT % 26.5* 27.1* PLATELETS AUTO x10*3/uL 630* 649* SODIUM mmol/L 139 135* POTASSIUM mmol/L 4.7 4.3 CHLORIDE mmol/L 103 101 CO2 mmol/L 30 29 BUN mg/dL 14 13 CREATININE mg/dL 1.15 1.34* GLUCOSE mg/dL 102* 99 CALCIUM mg/dL 11.1* 10.4 MAGNESIUM mg/dL 2.01 1.96 PHOSPHORUS mg/dL 2.9 3.0 ALBUMIN g/dL 2.9* 3.0* 2.9* ALK PHOS U/L 56 -- ALT U/L 7* -- AST U/L 6* -- BILIRUBIN TOTAL mg/dL 0.2 -- Imaging: MR femur left w and wo IV contrast Result Date: 12/12/2024 Interpreted By: Kong Armijo and Mason Montague STUDY: MRI of the left femur with and without contrast dated 12/12/2024. INDICATION: Gluteal abscess/malignancy. Biopsy result of squamous cell carcinoma. History of chronic hidradenitis suppurativa. COMPARISON: None. Correlation is made with 12/06/2024 and 11/19/2024 CT examinations. ACCESSION NUMBER(S): [id number] ORDERING CLINICIAN: GIBSON MENDIOLA TECHNIQUE: Multiplanar multisequence MRI of the left femur was performed with and without intravenous gadolinium based contrast. FINDINGS: LIMITATIONS: Examination is limited due to the complexity of the soft tissue process discussed below. OSSEOUS STRUCTURES: No fracture or dislocation is evident. Bone marrow signal intensity is within normal limits. Degenerative changes of the knee with small joint effusion. ASSOCIATED SOFT TISSUES: Large heterogenous predominantly STIR hyperintense solid mass of the posterior left thigh soft tissues with diffuse peripheral enhancement and predominantly internal hypoenhancement measuring 7.5 X 15.0 x 10.0 cm. There are few foci of air within the mass without a discrete fluid collection. The mass is mostly within the subcutaneous soft tissues with involvement of the skin and large multifocal overlying skin ulceration. There is adjacent diffuse soft tissue edema and skin thickening. The anterior aspect of the mass appears to involve the inferior gluteus randell muscle and the posterior aspect of the hamstrings musculature with some intramuscular enhancement/edema and involvement of the proximal hamstring tendons. The greatest degree of muscle invasion appears to be into the gluteus randell muscle. There is thickening of the skin of the left gluteal region extending to the lateral thigh, and extending inferiorly into the thigh with multiple scattered foci of high T2 low T1 signal intensity within the skin such as seen at image 6, 17, 20, 27, 30, 35, and 41 of the axial plane some are also seen laterally such as at image 9 in the axial plane. Some of these foci have rim enhancement. There is inguinal lymphadenopathy with the largest lymph node measuring up to approximately 1.4 x 3.1 cm. There are iliac chain lymph nodes with the largest measuring up to approximately 1.8 x 2.9 cm. There is a prominent lymph node in the perirectal/ischioanal fat measuring a proximally 0.9 x 0.9 cm such is seen image 65 of the axial plane. There is a nodule adjacent to the sciatic neurovascular bundle seen at image 8 in the axial plane measuring a proximally 0.5 x 0.8 cm. Another nodule is seen adjacent to the posterior surface of the proximal femoral metadiaphysis seen image 40 of the axial plane measuring 0.8 x 1.3 cm. Additional abnormal appearing lymph nodes adjacent to the left sciatic neurovascular bundle adjacent to the greater sciatic foramen and posterior to the mid femur. Mild feathery increased T2 signal intensity is seen in the adductor musculature. Reticular increased T2 signal intensity is seen in the subcutaneous tissues with reticular post-contrast enhancement. The sciatic neurovascular bundle appears to be spared at this time. Multiple outpouchings of the posterior urinary bladder, partially visualized and likely presenting diverticuli. 1. Complex process involving the soft tissues of the posterior proximal thigh most compatible with a combination of large ulcerating mass (Marjolin's ulcer) centered in the subcutaneous tissues with underlying involvement of at least the gluteus randell and posterior aspects of the proximal hamstrings muscle/tendons superimposed on hidradenitis suppurativa of the left gluteal skin and thigh with associated cellulitis. It is difficult to clearly separate what in the skin is hidradenitis suppurativa and malignancy due to the invasive nature of the mass. Foci of gas are seen within the mass which could be related to open nature of process, recent intervention, and/or infection of the mass. 2. Inguinal, internal iliac chain, perirectal/ischioanal lymphadenopathy and prominent lymph node along the sciatic neurovascular bundle. This may represent reactive and/or malignant lymphadenopathy. Small nodule along the posterior proximal surface of the femoral metadiaphysis may represent an additional lymph node versus a satellite nodule of malignancy. 3. Nonspecific edema in the adductor musculature, possibly reactive in nature. MACRO: None Signed by: Kong Armioj 12/12/2024 1:33 PM Dictation workstation: [id number] Oncology Hx Diagnosis: Squamous cell carcinoma of the left hip Follows with Dr Jiang, meant to see her 12/09 to start immuno therapy. November 29 initial diagnosis December 09: To start chemotherapy with cemiplimab, 21-day cycles Assessment and Plan: Kevan La is a 49 y.o. male with refractory hidradenitis supprativa (HS) and invasive SCC transferred for left gluteal lesion with worsening odor and drainage. Surgical oncology indicates no surgical intervention indicated at this time, recommend systemic therapy and discussion before oncologic resection. Wound is unlikely a result of worsening infection but will continue antibiotics. Updates 12/13/24: - Surgical oncology still no no indication for inpatient management, should follow up with them outpatient - Continue Ceftriaxone 2 gm IV daily with 500mg metronidazole po tid (For odor) while admitted, augmentin 875 BID home-going - 12/13 MRI pelvis with complex process combination of ulcerating mass superimposed on hidradenitis suppurativa of the left gluteal skin and thigh with associated cellulitis. It is difficult to clearly separate what in the skin is hidradenitis suppurativa and malignancy. #Gluteal wound s/p I&D 10/13 #Refractory hidradenitis suppurativa :: Patient with history of refractory HS having failed multiple modalities, now c/b gluteal abscess which he was admitted for 3 weeks ago s/p I&D, BCx with slackia exigua s/p Unasyn complete 10/28/2024 ::CT 12/06: Large fluid collection present within the proximal left upper thigh measuring 8.5 x 8.4 cm in axial dimension and 16.5 cm in length. There is a large overlying wound with cutaneous thickening and subcutaneous edema. ::Pt was d/stephanie 11/27 with one month of Augmentin. :: 12/13 MRI pelvis with complex process combination of ulcerating mass superimposed on hidradenitis suppurativa of the left gluteal skin and thigh with associated cellulitis. It is difficult to clearly separate what in the skin is hidradenitis suppurativa and malignancy. Plan: - Wound care following - Surgical oncology still no no indication for inpatient management, should follow up with them outpatient - Continue Topical Clindamycin BID - Continue Ceftriaxone 2 gm IV daily with 500mg metronidazole po tid (For odor) while in hospital - augmentin 875 BID home-going #Invasive SCC # Left Gluteus lesions ::biopsy diagnosed 11/15/24. :: Has not started treatment, plan was for cemiplimab 12/[address] Jiang Plan: - Zofran and compazine for nausea - Stop fentanyl patch - Start methadone 10mg q8h - Supportive oncology following, appreciate recs - Continue home gabapentin - Continue holding ferrous gluconate given possible infection - Plan for outpatient immunotherapy, not possible inpatient Diet: Full DVT prophylaxis: Lovenox Code status: FULL CODE NOK: Omkar La (brother, ) Patient and plan discussed with attending physician. Fer Gupta MD ([facility]) IM PGY-1 ------- I have seen and evaluated the patient with Dr. Steven Mcbride,, a resident. I reviewed the patient s medical and family history, the resident's findings on physical examination, and the patient s diagnosis and treatment plan with the resident. I discussed the case with the resident in details and agree with the findings and plan as documented in the resident s note. 49 y.o. male with invasive SCC transferred for left gluteal lesion with worsening odor and drainage. This morning, he said his pain is about the same. Pain control in progress. MRI hip and femur completed. No surgery planned. They will follow hiim as outpatient. Continue ceftriaxone 2 gm IV daily with 500mg metronidazole po tid (For odor). Appreciate ID rec, especially to plan for Abx regimen before discharge. Gibson Mendiola MD, PhD Hematology/Oncology Kevan La is a 49 y.o. male on day 5 of admission presenting with Gluteal abscess. Subjective Interval History: eating lunch-nausea resolved. Got his MRI today. Objective Range of Vitals (last 24 hours) Heart Rate: [68-106] Temp: [36 C (96.8 F)-36.7 C (98.1 F)] Resp: [12-16] BP: (91-121)/(54-73) SpO2: [95 %-100 %] Daily Weight 12/07/24 : 89.4 kg (197 lb 1.5 oz) Body mass index is 22.22 kg/m . Physical Exam A bit brighter,today . Eating lunch and playing Ghoste Hip lesion unchanged Antibiotics amoxicillin-pot clavulanate - 875-125 mg cefTRIAXone - 2 gram/50 mL chlorhexidine - 4 %, 4 % clindamycin - 1 %, 1 % metroNIDAZOLE - 500 mg Relevant Results Labs Results from last 72 hours Lab Units 12/12/24 0612/11/24 0554 12/10/24 06 WBC AUTO x10*3/uL 13.0* 11.6* 11.5* HEMOGLOBIN g/dL 8.1* 8.1* 8.1* HEMATOCRIT % 26.5* 27.1* 26.7* PLATELETS AUTO x10*3/uL 630* 649* 663* NEUTROS PCT AUTO % 69.2 66.2 66.1 LYMPHS PCT AUTO % 14.4 13.6 16.1 MONOS PCT AUTO % 10.4 15.6 12.4 EOS PCT AUTO % 5.1 3.7 4.5 Results from last 72 hours Lab Units 12/12/24 0604 12/11/24 0554 12/10/24 0605 SODIUM mmol/L 139 135* 139 POTASSIUM mmol/L 4.7 4.3 4.1 CHLORIDE mmol/L 103 101 102 CO2 mmol/L 30 29 29 BUN mg/dL 14 13 11 CREATININE mg/dL 1.15 1.34* 1.28 GLUCOSE mg/dL 102* 99 89 CALCIUM mg/dL 11.1* 10.4 10.1 ANION GAP mmol/L 11 9* 12 EGFR mL/min/1.73m*2 77 64 68 PHOSPHORUS mg/dL 2.9 3.0 3.5 Results from last 72 hours Lab Units 12/12/24 0604 12/11/24 0554 12/10/24 0605 ALK PHOS U/L 56 -- -- BILIRUBIN TOTAL mg/dL 0.2 -- -- BILIRUBIN DIRECT mg/dL 0.1 -- -- PROTEIN TOTAL g/dL 6.9 -- -- ALT U/L 7* -- -- AST U/L 6* -- -- ALBUMIN g/dL 2.9* 3.0* 2.9* 3.0* Estimated Creatinine Clearance: 96.1 mL/min (by C-G formula based on SCr of 1.15 mg/dL). C-Reactive Protein Date Value Ref Range Status 12/07/2024 10.84 (H) <1.00 mg/dL Final 11/10/2024 14.82 (H) <1.00 mg/dL Final 10/10/2024 7.72 (H) <1.00 mg/dL Final Microbiology Susceptibility data from last 14 days. Collected Specimen Info Organism 12/07/24 Tissue/Biopsy from Surgical Site Infection Mixed Gram-Positive and Gram-Negative Bacteria BlCx 12/07 x 2 NGTD Imaging MRI 12/12 IMPRESSION: 1. Complex process involving the soft tissues of the posterior proximal thigh most compatible with a combination of large ulcerating mass (Marjolin's ulcer) centered in the subcutaneous tissues with underlying involvement of at least the gluteus randell and posterior aspects of the proximal hamstrings muscle/tendons superimposed on hidradenitis suppurativa of the left gluteal skin and thigh with associated cellulitis. It is difficult to clearly separate what in the skin is hidradenitis suppurativa and malignancy due to the invasive nature of the mass. Foci of gas are seen within the mass which could be related to open nature of process, recent intervention, and/or infection of the mass. 2. Inguinal, internal iliac chain, perirectal/ischioanal lymphadenopathy and prominent lymph node along the sciatic neurovascular bundle. This may represent reactive and/or malignant lymphadenopathy. Small nodule along the posterior proximal surface of the femoral metadiaphysis may represent an additional lymph node versus a satellite nodule of malignancy. 3. Nonspecific edema in the adductor musculature, possibly reactive in nature. Assessment/Plan 49 y.o. 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 Culture again mixed bacteria. MRI with large mass, no fluid collection. Main problem is his tumor Recommendations: Continue ceftriaxone/flagyl while here Transition back to oral Augmentin 875 bid on discharge. Would plan 28 dyaycourse as he starts his immunotherapy. ID will sign off, no need for ID follow up. Please reach out of further questions. Trudi Rodriguez MD Music Therapy Note Kevan La Therapy Session Referral Type: New referral this admission Visit Type: Follow-up visit Session Start Time: 1405 Session End Time: 1500 Intervention Delivery: In-person Conflict of Service: None Family Present for Session: None Pre-assessment Mood/Affect: Appropriate, Calm, Cooperative Treatment/Interventions Areas of Focus: Coping Music Therapy Interventions: Live music listening, Empathic listening/validating emotions Interruption: No Patient Fell Asleep at End of Session: No Post-assessment Mood/Affect: Appropriate, Calm, Cooperative, Participative Continue Visiting: Yes Total Session Time (min): 55 minutes Narrative Assessment Detail: Pt familiar to this MT and MTI from a previous admission. Pt immediately agreeable to session, requesting to listen. Plan: MT engaged pt in live music listening as a means of promoting coping. Intervention: Patient passively participated in music intervention by listening to music provided by MT and MTI with live singing, guitar and piano accompaniment. Evaluation: Pt participative and displaying bright affect throughout session. Patient voiced gratitude for MT and MTI's visit. Follow-up: Music therapy services to continue to follow as applicable. Education Documentation No documentation found. Kevan La is a 49 y.o. male on day 5 of admission presenting with Gluteal abscess. [facility] ONCOL[facility] INPATIENT FOLLOW-UP SERVICE DATE: 12/12/24 Updates 12/12/24, recommended changes are bolded below: pain suboptimally-controlled, opioid rotation Pt able to get MRI under sedation ASSESSMENT/PLAN: Kevan La is a 49 y.o. male diagnosed with squamous cell carcinoma. PMH significant for refractory hidradenitis supprativa (HS), chronic gluteal wound and hypotension. Admitted 12/07/2024 for further evaluation and management of cellulitis in LLE. Supportive and Palliative Oncology is consulted for pain management. Symptom Management Plan: Recommended changes are bolded Pain: Cancer related pain: gluteal abscess , somatic, well-controlled Home regimen: Oxycodone 5mg Intolerances/previously tried: N/A Risk factors: none Renal function impaired and Hepatic function WNL EKG 12/12/24 QTc 416 Discontinue 75 mcg fentanyl patch q72h START 10mg methadone TID Continue 20mg oxycodone q3h PRN for mod- severe pain Continue 1.0 mg IV hydromorphone q2h PRN for BT pain Nausea: At risk for nausea with vomiting related to opioids Home regimen: none QTc: within normal limits Sub- optimally controlled Continue 8 mg ondansetron q8h PRN Continue 10mg prochlorperazine q6h PRN Pain control as above Constipation At risk for constipation related to medication side effects (including opioids), currently not constipated Usual bowel pattern: every day Home regimen: none LBM yesterday Continue miralax daily Continue 2 senna-s BID Goal to have BM without straining q48-72h, adjust regimen as needed Disposition: Please start the process of having prior authorization with meds to beds deliver medications to patient prior to discharge via [facility] pharmacy. Prescriptions will need to be sent 48-72 hours prior to discharge so that a prior authorization can be completed. Discharge date: unknown pending acute issues Patient has an appointment with Outpatient Supportive Oncology TRAVIS Talavera 12/17/24 SIGNATURE: TRAVIS Rodas PAGER/CONTACT: Contact information: [facility] Palliative Oncology Monday-Monday 8 AM-5 PM [email or web address] Secure chat or pager [phone]. After hours and weekends: pager [phone] SUBJECTIVE: Interval Events: Pt was able to get MRI under sedation. Pt still in uncontrolled pain- requiring significant opioid regimen. He is agreeable to opioid rotation from fentanyl to methadone. Pain Assessment: Cancer related pain: gluteal abscess , somatic, well-controlled Duration: Constant Characteristics: Rating: Severe Descriptors: aching, throbbing, sharp, and burning Aggravating: movement and lying down Relieving: Analgesics opioids, Positioning, and Modifying activity Interference with Function: Very Much Opioid Requirements Past 24 h opioid requirements (12/11/24 at 0800 to 12/12/24 at 0800): Hydromorphone 1.0 mg IV x 7 doses = 7.0 mg = 112 OME Oxycodone IR 20 mg PO x 5 doses = 100 mg = 150 OME Fentanyl TD 75 mcg/h = 150 OME Total 24h OME use: 412 Symptom Assessment: Constipation a little Lack of appetite somewhat Depressive symptoms somewhat Lack of energy very much Information obtained from: chart review, interview of patient, discussion with RN, and discussion with primary team ____ OBJECTIVE: Lab Results Component Value Date WBC 13.0 (H) 12/12/2024 HGB 8.1 (L) 12/12/2024 HCT 26.5 (L) 12/12/2024 MCV 85 12/12/2024 PLT 630 (H) 12/12/2024 Lab Results Component Value Date GLUCOSE 102 (H) 12/12/2024 CALCIUM 11.1 (H) 12/12/2024 NA 139 12/12/2024 K 4.7 12/12/2024 CO2 30 12/12/2024 CL 103 12/12/2024 BUN 14 12/12/2024 CREATININE 1.15 12/12/2024 Lab Results Component Value Date ALT 6 (L) 12/08/2024 AST 6 (L) 12/08/2024 ALKPHOS 48 12/08/2024 BILITOT 0.3 12/08/2024 Estimated Creatinine Clearance: 96.1 mL/min (by C-G formula based on SCr of 1.15 mg/dL). Scheduled medications acetaminophen, 975 mg, oral, q8h cefTRIAXone, 2 g, intravenous, q24h chlorhexidine, , Topical, BID cholecalciferol, 1,000 Units, oral, Daily clindamycin, , Topical, BID enoxaparin, 40 mg, subcutaneous, Daily fentaNYL, 1 patch, transdermal, q72h [Held by provider] ferrous sulfate, 325 mg, oral, Daily with breakfast folic acid, 1 mg, oral, Daily gabapentin, 300 mg, oral, Nightly melatonin, 3 mg, oral, Nightly metroNIDAZOLE, 500 mg, oral, q8h BERNADETTE polyethylene glycol, 17 g, oral, Daily sennosides-docusate sodium, 2 tablet, oral, BID tiZANidine, 2 mg, oral, TID varenicline tartrate, 1 mg, oral, BID Continuous medications PRN medications bisacodyl, 10 mg, Daily PRN HYDROmorphone, 1 mg, q2h PRN ondansetron, 4 mg, q8h PRN Or ondansetron, 4 mg, q8h PRN oxyCODONE, 20 mg, q3h PRN prochlorperazine, 10 mg, q6h PRN Or prochlorperazine, 10 mg, q6h PRN Or prochlorperazine, 25 mg, q12h PRN } PHYSICAL EXAMINATION: Vital Signs: Vital signs reviewed Visit Vitals BP 99/61 (BP Location: Right arm, Patient Position: Lying) Pulse 72 Temp 36.5 C (97.7 F) (Temporal) Resp 16 0-10 (Numeric) Pain Score: 10 - Worst possible pain Physical Exam Chronically ill-appearing M Laying in bed, NAD A&O x 3, pleasant and cooperative with interview & exam Breathing comfortably on RA Abd soft, NTND No edema in ext, LLE erythematous PALLIATIVE CARE ENCOUNTER: Supportive and Palliative Oncology encounter: Spoke with patient at bedside Emotional support provided Coordination of care: medication changes Supportive and Palliative Oncology encounter: Spoke with patient at bedside Emotional support provided Coordination of care: coordination of IDT involvement Medical Decision Making/Goals of Care/Advance Care Planning: Patient's current clinical condition, including diagnosis, prognosis, and management plan, and goals of care were discussed. Life limiting disease: SCC of UNK primary Family: Supportive though live in [place] Performance status: Moderate limitations due to pain Joys/meaning/strength: Family and [place] Understanding of health: 12/08: Demonstrates good prognostic understanding of disease process, understands plan for treatment of cellulitis and aggressive pain management. Additionally increased wound drainage and odor. Hopeful to get back to rehab soon as he was making significant progress there. 12/12: Pt was able to get MRI under sedation. States pain continues to be constant- is relieved with meds but needs them atc. Agreeable to opioid rotation. Information:Wants full disclosure Goals: symptom control Worries and fears now and future: ongoing symptoms Code status discussion: Discussed previously and Full code Advance Directives Existence of Advance Directives:No - not interested Decision maker: Surrogate decision maker is brother Omkar La [phone] Signature and billing: Medical complexity was high level due to due to complexity of problems, extensive data review, and high risk of management/treatment. Data: Diagnostic tests and information reviewed for today's visit: Conversation with primary team, Most recent labs and imaging results, Most recent EKG, Medications Some elements copied from my note on 12/08/24, the elements have been updated and all reflect current decision making from today, 12/12/24 Plan of Care discussed with: Provider, RN, Patient Thank you for asking [facility] Pall[facility] Oncology to assist with care of this patient. Recommendations will be communicated back to the consulting service by way of shared electronic medical record/secure chat/email or [id number]. We will continue to follow Please contact us for additional questions or concerns. SIGNATURE: TRAVIS Rodas PAGER/CONTACT: Contact information: [facility] Monday-Monday 8 AM-5 PM [email or web address] Secure chat or pager [phone]. After hours and weekends: pager [phone] Images from the original note were not included. Internal Medicine Daily Progress Note Subjective Interval events: NAEO. Patient states his pain is similar to yesterday. NPO for MRI today. No other concerns or complaints at this time. Objective Vitals: Visit Vitals BP 102/65 (BP Location: Right arm, Patient Position: Lying) Pulse 76 Temp 36.1 C (97 F) (Temporal) Resp 14 Intake/Output Summary (Last 24 hours) at 12/12/2024 1544 Last data filed at 12/12/2024 1206 Gross per 24 hour Intake 1050 ml Output 875 ml Net 175 ml Physical exam: General: Awake, alert, conversant, NAD HEENT: PERRL, EOMI, no scleral icterus CV: RRR, no M/R/G RESP: Lungs clear to auscultation bilaterally GI: Soft, NTND, no masses, guarding, or rebound tenderness EXT: No peripheral edema, no asymmetry noted Skin: L open gluteal wound with purulent, malodorous drainage, numerous tracts evident on L glute and thigh. Skin discoloration, and protruding mass evident inferior to above wound. Ulcerous lesion on L thigh. Tracts below this lesion with purulent drainage. Bandage over left glute. Neuro: AOx4, moving all limbs spontaneously, follows commands Medications: acetaminophen, 975 mg, oral, q8h cefTRIAXone, 2 g, intravenous, q24h chlorhexidine, , Topical, BID cholecalciferol, 1,000 Units, oral, Daily clindamycin, , Topical, BID enoxaparin, 40 mg, subcutaneous, Daily [Held by provider] ferrous sulfate, 325 mg, oral, Daily with breakfast folic acid, 1 mg, oral, Daily gabapentin, 300 mg, oral, Nightly lidocaine, 0.1 mL, subcutaneous, Once melatonin, 3 mg, oral, Nightly methadone, 10 mg, oral, q8h metroNIDAZOLE, 500 mg, oral, q8h BERNADETTE polyethylene glycol, 17 g, oral, Daily sennosides-docusate sodium, 2 tablet, oral, BID tiZANidine, 2 mg, oral, TID varenicline tartrate, 1 mg, oral, BID PRN medications: bisacodyl, fentaNYL PF, fentaNYL PF, hydrALAZINE, HYDROmorphone, HYDROmorphone, labetaloL, ondansetron OR ondansetron, ondansetron, oxyCODONE, oxyCODONE, oxygen, prochlorperazine OR prochlorperazine OR prochlorperazine Labs: Results from last 72 hours Lab Units 12/12/24 0604 12/11/24 0554 12/10/24 0605 WBC AUTO x10*3/uL 13.0* 11.6* 11.5* HEMOGLOBIN g/dL 8.1* 8.1* 8.1* HEMATOCRIT % 26.5* 27.1* 26.7* PLATELETS AUTO x10*3/uL 630* 649* 663* SODIUM mmol/L 139 135* 139 POTASSIUM mmol/L 4.7 4.3 4.1 CHLORIDE mmol/L 103 101 102 CO2 mmol/L 30 29 29 BUN mg/dL 14 13 11 CREATININE mg/dL 1.15 1.34* 1.28 GLUCOSE mg/dL 102* 99 89 CALCIUM mg/dL 11.1* 10.4 10.1 MAGNESIUM mg/dL 2.01 1.96 1.90 PHOSPHORUS mg/dL 2.9 3.0 3.5 ALBUMIN g/dL 2.9* 3.0* 2.9* 3.0* ALK PHOS U/L 56 -- -- ALT U/L 7* -- -- AST U/L 6* -- -- BILIRUBIN TOTAL mg/dL 0.2 -- -- Imaging: MR femur left w and wo IV contrast Result Date: 12/12/2024 Interpreted By: Kong Armijo and Mason Montague STUDY: MRI of the left femur with and without contrast dated 12/12/2024. INDICATION: Gluteal abscess/malignancy. Biopsy result of squamous cell carcinoma. History of chronic hidradenitis suppurativa. COMPARISON: None. Correlation is made with 12/06/2024 and 11/19/2024 CT examinations. ACCESSION NUMBER(S): [id number] ORDERING CLINICIAN: GIBSON MENDIOLA TECHNIQUE: Multiplanar multisequence MRI of the left femur was performed with and without intravenous gadolinium based contrast. FINDINGS: LIMITATIONS: Examination is limited due to the complexity of the soft tissue process discussed below. OSSEOUS STRUCTURES: No fracture or dislocation is evident. Bone marrow signal intensity is within normal limits. Degenerative changes of the knee with small joint effusion. ASSOCIATED SOFT TISSUES: Large heterogenous predominantly STIR hyperintense solid mass of the posterior left thigh soft tissues with diffuse peripheral enhancement and predominantly internal hypoenhancement measuring 7.5 X 15.0 x 10.0 cm. There are few foci of air within the mass without a discrete fluid collection. The mass is mostly within the subcutaneous soft tissues with involvement of the skin and large multifocal overlying skin ulceration. There is adjacent diffuse soft tissue edema and skin thickening. The anterior aspect of the mass appears to involve the inferior gluteus randell muscle and the posterior aspect of the hamstrings musculature with some intramuscular enhancement/edema and involvement of the proximal hamstring tendons. The greatest degree of muscle invasion appears to be into the gluteus randell muscle. There is thickening of the skin of the left gluteal region extending to the lateral thigh, and extending inferiorly into the thigh with multiple scattered foci of high T2 low T1 signal intensity within the skin such as seen at image 6, 17, 20, 27, 30, 35, and 41 of the axial plane some are also seen laterally such as at image 9 in the axial plane. Some of these foci have rim enhancement. There is inguinal lymphadenopathy with the largest lymph node measuring up to approximately 1.4 x 3.1 cm. There are iliac chain lymph nodes with the largest measuring up to approximately 1.8 x 2.9 cm. There is a prominent lymph node in the perirectal/ischioanal fat measuring a proximally 0.9 x 0.9 cm such is seen image 65 of the axial plane. There is a nodule adjacent to the sciatic neurovascular bundle seen at image 8 in the axial plane measuring a proximally 0.5 x 0.8 cm. Another nodule is seen adjacent to the posterior surface of the proximal femoral metadiaphysis seen image 40 of the axial plane measuring 0.8 x 1.3 cm. Additional abnormal appearing lymph nodes adjacent to the left sciatic neurovascular bundle adjacent to the greater sciatic foramen and posterior to the mid femur. Mild feathery increased T2 signal intensity is seen in the adductor musculature. Reticular increased T2 signal intensity is seen in the subcutaneous tissues with reticular post-contrast enhancement. The sciatic neurovascular bundle appears to be spared at this time. Multiple outpouchings of the posterior urinary bladder, partially visualized and likely presenting diverticuli. 1. Complex process involving the soft tissues of the posterior proximal thigh most compatible with a combination of large ulcerating mass (Marjolin's ulcer) centered in the subcutaneous tissues with underlying involvement of at least the gluteus randell and posterior aspects of the proximal hamstrings muscle/tendons superimposed on hidradenitis suppurativa of the left gluteal skin and thigh with associated cellulitis. It is difficult to clearly separate what in the skin is hidradenitis suppurativa and malignancy due to the invasive nature of the mass. Foci of gas are seen within the mass which could be related to open nature of process, recent intervention, and/or infection of the mass. 2. Inguinal, internal iliac chain, perirectal/ischioanal lymphadenopathy and prominent lymph node along the sciatic neurovascular bundle. This may represent reactive and/or malignant lymphadenopathy. Small nodule along the posterior proximal surface of the femoral metadiaphysis may represent an additional lymph node versus a satellite nodule of malignancy. 3. Nonspecific edema in the adductor musculature, possibly reactive in nature. MACRO: None Signed by: Kong Armijo 12/12/2024 1:33 PM Dictation workstation: [id number] MR femur left wo IV contrast Result Date: 12/12/2024 Interpreted By: Kong Armijo and Lawrence Austen STUDY: MRI of the left femur with and without contrast dated 12/10/2024. 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 History of chronic hidradenitis suppurativa. COMPARISON: Correlation is made with 12/06/2024 and 11/19/2024 CT examinations. ACCESSION NUMBER(S): [id number] ORDERING CLINICIAN: TOYA RUBIO TECHNIQUE: Multiplanar multisequence MRI of the left femur was performed with and without intravenous gadolinium based contrast. FINDINGS: No images were obtained as the patient was unable to cooperate for the exam. No images were obtained as the patient was unable to cooperate for the exam. MACRO: None Signed by: Kong Armijo 12/12/2024 1:18 PM Dictation workstation: [id number] Oncology Hx Diagnosis: Squamous cell carcinoma of the left hip Follows with Dr Jiang, meant to see her 12/09 to start immuno therapy. November 29 initial diagnosis December 09: To start chemotherapy with cemiplimab, 21-day cycles Assessment and Plan: Kevan La is a 49 y.o. male with refractory hidradenitis supprativa (HS) and invasive SCC transferred for left gluteal lesion with worsening odor and drainage. Surgical oncology indicates no surgical intervention indicated at this time, recommend systemic therapy and discussion before oncologic resection. Wound is unlikely a result of worsening infection but will continue antibiotics. Updates 12/12/24: - MR left femur w/wo contrast today, coordinating with anesthesia d/t prior intolerance - Calcium slowly uptrending to 11.1 today from 9.6 on admission, continue to monitor - Continue Ceftriaxone 2 gm IV daily with 500mg metronidazole po tid (For odor) while admitted, will need to clarify home-going abx with ID prior to discharge - Discontinue fentanyl patch, start methadone 10 q8h per supportive oncology #Gluteal wound s/p I&D 10/13 #Refractory hidradenitis suppurativa :: Patient with history of refractory HS having failed multiple modalities, now c/b gluteal abscess which he was admitted for 3 weeks ago s/p I&D, BCx with slackia exigua s/p Unasyn complete 10/28/2024 ::CT 12/06: Large fluid collection present within the proximal left upper thigh measuring 8.5 x 8.4 cm in axial dimension and 16.5 cm in length. There is a large overlying wound with cutaneous thickening and subcutaneous edema. ::Pt was d/stephanie 11/27 with one month of Augmentin. Plan: - Wound care following - Continue Topical Clindamycin BID - MR left femur w/wo contrast today with anesthesia - Continue Ceftriaxone 2 gm IV daily with 500mg metronidazole po tid (For odor) while in hospital - ID consulted, appreciate recs for home-going abx prior to discharge (no plans for IV abx at ca) #Invasive SCC # Left Gluteus lesions ::biopsy diagnosed 11/15/24. :: Has not started treatment, plan was for cemiplimab 12/[address] Jiang Plan: - Zofran and compazine for nausea - Stop fentanyl patch - Start methadone 10mg q8h - Supportive oncology following, appreciate recs - Continue home gabapentin - Continue holding ferrous gluconate given possible infection - Plan for outpatient immunotherapy, not possible inpatient Diet: Full DVT prophylaxis: Lovenox Code status: FULL CODE NOK: Omkar La (brother, ) Patient and plan discussed with attending physician. Steven Mcbride MD Internal Medicine PGY-1 I have seen and evaluated the patient with Dr. Steven Mcbride,, a resident. I reviewed the patient s medical and family history, the resident's findings on physical examination, and the patient s diagnosis and treatment plan with the resident. I discussed the case with the resident in details and agree with the findings and plan as documented in the resident s note. 49 y.o. male with invasive SCC transferred for left gluteal lesion with worsening odor and drainage. No surgical intervention at this time. On Vanco/Zosyn empirically. This morning, he said his pain is about the same. MRI hip and femur was completed today. Hopefully tomorrow. Continue ceftriaxone 2 gm IV daily with 500mg metronidazole po tid (For odor). Appreciate ID rec, especially to plan for Abx regimen before discharge. Gibson Mendiola MD, PhD Hematology/Oncology Images from the original note were not included. Internal Medicine Daily Progress Note Subjective Interval events: NAEO. Unable to obtain MRI yesterday as he cannot lay flat. No other acute complaints, f/c, n/v. Objective Vitals: Visit Vitals BP 90/50 (BP Location: Right arm, Patient Position: Lying) Pulse 64 Temp 36.5 C (97.7 F) (Temporal) Resp 18 Intake/Output Summary (Last 24 hours) at 12/11/2024 1521 Last data filed at 12/11/2024 1148 Gross per 24 hour Intake 210 ml Output 650 ml Net -440 ml Physical exam: General: Awake, alert, conversant, NAD HEENT: PERRL, EOMI, no scleral icterus CV: RRR, no M/R/G RESP: Lungs clear to auscultation bilaterally GI: Soft, NTND, no masses, guarding, or rebound tenderness EXT: No peripheral edema, no asymmetry noted Skin: L open gluteal wound with purulent, malodorous drainage, numerous tracts evident on L glute and thigh. Skin discoloration, and protruding mass evident inferior to above wound. Ulcerous lesion on L thigh. Tracts below this lesion with purulent drainage. Bandage over left glute. Neuro: AOx4, moving all limbs spontaneously, follows commands Medications: acetaminophen, 975 mg, oral, q8h cefTRIAXone, 2 g, intravenous, q24h chlorhexidine, , Topical, BID cholecalciferol, 1,000 Units, oral, Daily clindamycin, , Topical, BID enoxaparin, 40 mg, subcutaneous, Daily fentaNYL, 1 patch, transdermal, q72h [Held by provider] ferrous sulfate, 325 mg, oral, Daily with breakfast folic acid, 1 mg, oral, Daily [Held by provider] gabapentin, 300 mg, oral, Nightly melatonin, 3 mg, oral, Nightly metroNIDAZOLE, 500 mg, oral, q8h BERNADETTE polyethylene glycol, 17 g, oral, Daily sennosides-docusate sodium, 2 tablet, oral, BID tiZANidine, 2 mg, oral, TID varenicline tartrate, 1 mg, oral, BID PRN medications: bisacodyl, HYDROmorphone, ondansetron OR ondansetron, oxyCODONE, prochlorperazine OR prochlorperazine OR prochlorperazine Labs: Results from last 72 hours Lab Units 12/11/24 0554 12/10/24 0605 12/09/24 0555 WBC AUTO x10*3/uL 11.6* 11.5* 10.2 HEMOGLOBIN g/dL 8.1* 8.1* 8.3* HEMATOCRIT % 27.1* 26.7* 25.6* PLATELETS AUTO x10*3/uL 649* 663* 650* INR -- -- 1.3* SODIUM mmol/L 135* 139 140 POTASSIUM mmol/L 4.3 4.1 3.6 CHLORIDE mmol/L 101 102 104 CO2 mmol/L 29 29 25 BUN mg/dL 13 11 15 CREATININE mg/dL 1.34* 1.28 1.20 GLUCOSE mg/dL 99 89 92 CALCIUM mg/dL 10.4 10.1 9.8 MAGNESIUM mg/dL 1.96 1.90 1.90 PHOSPHORUS mg/dL 3.0 3.5 3.4 ALBUMIN g/dL 2.9* 3.0* 3.1* Imaging: No results found. 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 November 29 initial diagnosis December 09: To start chemotherapy with cemiplimab, 21-day cycles Assessment and Plan: Kevan La is a 49 y.o. male with refractory hidradenitis supprativa (HS) and invasive SCC transferred for left gluteal lesion with worsening odor and drainage. Surgical oncology indicates no surgical intervention indicated at this time, recommend systemic therapy and discussion before oncologic resection. Wound is unlikely a result of worsening infection but will continue antibiotics. Updates 12/11/24: - MR hip and femur with contrast ordered, will need anesthesia for MRI d/t pain (attempting to schedule) - Continue Ceftriaxone 2 gm IV daily with 500mg metronidazole po tid (For odor) while in hospital - Blood cultures ngtd #Gluteal wound s/p I&D 10/13 #Refractory hidradenitis suppurativa :: Patient with history of refractory HS having failed multiple modalities, now c/b gluteal abscess which he was admitted for 3 weeks ago s/p I&D, BCx with slackia exigua s/p Unasyn complete 10/28/2024 ::CT 12/06: Large fluid collection present within the proximal left upper thigh measuring 8.5 x 8.4 cm in axial dimension and 16.5 cm in length. There is a large overlying wound with cutaneous thickening and subcutaneous edema. ::Pt was d/stephanie 11/27 with one month of Augmentin. Plan: - Wound care consult - Continue Topical Clindamycin BID - MR hip and femur with contrast pending - Continue Ceftriaxone 2 gm IV daily with 500mg metronidazole po tid (For odor) while in hospital - ID consulted, appreciate recs #Invasive SCC # Left Gluteus lesions ::biopsy diagnosed 11/15/24. :: Has not started treatment, plan was for cemiplimab 12/[address] Jiang Plan: - Zofran and compazine for nausea - Supportive oncology recs - Holding home gabapentin - Hold ferrous gluconate given possible infection - Plan for outpatient immunotherapy, not possible inpatient Diet: Full DVT prophylaxis: Lovenox Code status: FULL CODE NOK: Omkar La (brother, ) Patient and plan discussed with attending physician. Fer Gupta MD (Wes) IM PGY-1 I have seen and evaluated the patient with Dr. Fer Gupta (Wes), a resident. I reviewed the patient s medical and family history, the resident's findings on physical examination, and the patient s diagnosis and treatment plan with the resident. I discussed the case with the resident in details and agree with the findings and plan as documented in the resident s note. 49 y.o. male with invasive SCC transferred for left gluteal lesion with worsening odor and drainage. No surgical intervention at this time. On Vanco/Zosyn empirically. This morning, he said his pain is about the same. It's very positional. MRI hip and femur was not completed (planned with anesthesia). Hopefully tomorrow. Continue ceftriaxone 2 gm IV daily with 500mg metronidazole po tid (For odor). Appreciate ID rec, especially to plan for Abx regimen before discharge. Gibson Mendiola MD, PhD Hematology/Oncology Physical Therapy Physical Therapy Treatment Patient Name: Kevan La Today's Date: 12/11/2024 Time Calculation Start Time: 1330 Stop Time: 1348 Time Calculation (min): 18 min Assessment/Plan PT Assessment Barriers to Discharge Home: Caregiver assistance, Physical needs Caregiver Assistance: Patient lives alone and/or does not have reliable caregiver assistance Physical Needs: Stair navigation into home limited by function/safety, In-home setup navigation limited by function/safety, Ambulating household distances limited by function/safety, High falls risk due to function or environment (unable to use RW in home per report - "will not fit") Evaluation/Treatment Tolerance: Patient limited by pain Medical Staff Made Aware: Yes Strengths: Attitude of self Barriers to Participation: Comorbidities End of Session Communication: Bedside nurse Assessment Comment: pt was CGA for mobility with ability to inc ambulation distance to 250 ft. he was limited by pain at times, but able to complete tx session in full. patient remains appropriate to continue with skilled PT while in house End of Session Patient Position: Bed, 3 rail up, Alarm off, not on at start of session PT Plan Inpatient/Swing Bed or Outpatient: Inpatient PT Plan Treatment/Interventions: Bed mobility, Transfer training, Gait training, Stair training, Balance training, Strengthening, Endurance training, Range of motion, Therapeutic exercise, Therapeutic activity PT Plan: Ongoing PT PT Frequency: 3 times per week PT Discharge Recommendations: Moderate intensity level of continued care Equipment Recommended upon Discharge: (Owns) PT Recommended Transfer Status: Assist x1 PT - OK to Discharge: Yes General Visit Information: PT Visit PT Received On: 12/11/24 Reason for Referral: LLE wound with associated abscess Past Medical History Relevant to Rehab: Refractory hidradenitis supprativa and squamous cell carcinoma Prior to Session Communication: Bedside nurse Patient Position Received: Bed, 3 rail up, Alarm off, not on at start of session General Comment: agreeable to PT Subjective Precautions: Vital Signs: Objective Pain: Pain Assessment Pain Assessment: 0-10 0-10 (Numeric) Pain Score: (did not rate, but reported needed pain meds BENJAMIN) Cognition: Cognition Overall Cognitive Status: Within Functional Limits Lines/Tubes/Drains: PT Treatments: Therapeutic Activity Therapeutic Activity Performed: Yes Therapeutic Activity 1: supine <> sit, CGA (cues for handplacement and sequencing. pt method included using RW, as he had difficulty going into sidelying and full sitting d/t gluteal pain) Therapeutic Activity 2: STS x 1, CGA (cues for handplacement and sequecning) Therapeutic Activity 3: ambulation x 250 ft, CGA (work on safe handing of RW, activity pacing, and gait related to funcitonal needs and distance. pt demonstrated slow bobby, narrow MATHEW and flexed foward posture) Outcome Measures: [facility] Basic Mobility Turning from your back to your side while in a flat bed without using bedrails: A little Moving from lying on your back to sitting on the side of a flat bed without using bedrails: A little Moving to and from bed to chair (including a wheelchair): A little Standing up from a chair using your arms (e.g. wheelchair or bedside chair): A little To walk in hospital room: A little Climbing 3-5 steps with railing: Total Basic Mobility - Total Score: 16 Education Documentation Body Mechanics, taught by Latricia Yousif, PT at 12/11/2024 2:04 PM. Learner: Patient Readiness: Acceptance Method: Explanation Response: Verbalizes Understanding Precautions, taught by Latricia Yousif, PT at 12/11/2024 2:04 PM. Learner: Patient Readiness: Acceptance Method: Explanation Response: Verbalizes Understanding Mobility Training, taught by Latricia Yousif, PT at 12/11/2024 2:04 PM. Learner: Patient Readiness: Acceptance Method: Explanation Response: Verbalizes Understanding Education Comments No comments found. OP EDUCATION: Encounter Problems Encounter Problems (Active) Balance STG - Maintains dynamic standing balance with upper extremity support and SBA with no LOB for >60s (Progressing) Start: 12/09/24 Expected End: 12/23/24 INTERVENTIONS:1. Practice standing with minimal support.2. Educate patient about standing tolerance.3. Educate patient about independence with gait, transfers, and ADL's.4. Educate patient about use of assistive device.5. Educate patient about self-directed care. Mobility LTG - Patient will ambulate 100ft with SBA and LRD (Progressing) Start: 12/09/24 Expected End: 12/23/24 LTG - Patient will navigate 1 step with SBA and rails/device to facilitate return to community ambulator (Progressing) Start: 12/09/24 Expected End: 12/23/24 PT Transfers STG - Patient will perform bed mobility with modified independence (Progressing) Start: 12/09/24 Expected End: 12/23/24 STG - Patient will transfer sit to and from stand independently with LRD (Progressing) Start: 12/09/24 Expected End: 12/23/24 Pain - Adult 12/11/24 at 2:05 PM Latricia Yousif, PT Rehab Office: [phone] Spiritual Care Visit Spiritual Care Request Spiritual Care Annotation Annotation: Stallion Manager visited with the patient, who is known to this Stallion Manager from prior admissions. Patient shared he was feeling very tired and not in the mood to talk. Patient requested a Bible and a follow-up visit. Stallion Manager was able to bring a Bible for the patient. Stallion Manager will follow-up tomorrow. Please reach out with any needs/concerns. Rev. Mack Schmitz, Supportive Oncology Stallion Manager 12/09/24 1000 Discharge Planning Living Arrangements Other (Comment);Alone (admitted from [facility]) Support Systems Family members;Other (Comment) (SNF staff, SNF SW) Assistance Needed skilled, PT/OT Type of Residence nursing home facility Do you have animals or pets at home? No Home or Post Acute Services Post acute facilities (Rehab/SNF/etc) (return to [facility]) Type of Post Acute Facility Services nursing home Expected Discharge Disposition SNF Does the patient need discharge transport arranged? Yes RoundTrip coordination needed? Yes Has discharge transport been arranged? No Patient Choice Provider Choice list and CMS website (https://medicare.gov/care-compar e#search) for post-acute Quality and Resource Measure Data were provided and reviewed with: Patient Patient / Family choosing to utilize agency / facility established prior to hospitalization Yes SW met with pt to introduce role and discuss discharge planning. Pt admitted from [facility]; pt reports that he's been there on and off since September. Pt confirmed demographic and insurance details. SW contact details written on the whiteboard in pt room. Return referral sent to [facility]. SW will follow. Fer Hidalgo [facility] PRIOR AUTHORIZATION TECHNICIAN 12/09/2024 1040 Per [facility], pt's current auth expires on 12/11. Further discharge planning pending updates from the care team. SW will follow. Fer [facility]idal[facility] [place] PRIOR AUTHORIZATION TECHNICIAN 12/11/2024 1030 Pt auth for SNF [facility] expires today. Clinical updates sent to facility. Further discharge planning pending updates from the care team. SW will follow. Fer Hidalgo [facility] PRIOR AUTHORIZATION TECHNICIAN eKvan La is a 49 y.o. male on day 3 of admission presenting with Gluteal abscess. Subjective Interval History: says feels about the same but not vomiting anymore Objective Range of Vitals (last 24 hours) Heart Rate: [74-111] Temp: [36.2 C (97.2 F)-36.9 C (98.4 F)] Resp: [16-18] BP: (91-110)/(58-69) SpO2: [93 %-98 %] Daily Weight 12/07/24 : 89.4 kg (197 lb 1.5 oz) Body mass index is 22.22 kg/m . Physical Exam Nontoxic, laying on right side to stay off left hip Left buttock with scars of hydradenitis, large ulcer with smaller heaped up lesion. No erythema. Malodorus, minimal drainage Antibiotics amoxicillin-pot clavulanate - 875-125 mg cefTRIAXone - 2 gram/50 mL chlorhexidine - 4 %, 4 % clindamycin - 1 %, 1 % metroNIDAZOLE - 500 mg Relevant Results Labs Results from last 72 hours Lab Units 12/10/24 0605 12/09/24 0555 12/08/24 0602 WBC AUTO x10*3/uL 11.5* 10.2 11.5* HEMOGLOBIN g/dL 8.1* 8.3* 7.8* HEMATOCRIT % 26.7* 25.6* 26.1* PLATELETS AUTO x10*3/uL 663* 650* 595* NEUTROS PCT AUTO % 66.1 65.0 70.8 LYMPHS PCT AUTO % 16.1 17.8 11.7 MONOS PCT AUTO % 12.4 10.2 11.9 EOS PCT AUTO % 4.5 4.8 4.8 Results from last 72 hours Lab Units 12/10/24 0605 12/09/24 0555 12/08/24 0602 SODIUM mmol/L 139 140 140 POTASSIUM mmol/L 4.1 3.6 3.8 CHLORIDE mmol/L 102 104 106 CO2 mmol/L 29 25 26 BUN mg/dL 11 15 17 CREATININE mg/dL 1.28 1.20 1.33* GLUCOSE mg/dL 89 92 112* CALCIUM mg/dL 10.1 9.8 9.4 ANION GAP mmol/L 12 15 12 EGFR mL/min/1.73m*2 68 73 65 PHOSPHORUS mg/dL 3.5 3.4 -- Results from last 72 hours Lab Units 12/10/24 0605 12/09/24 0555 12/08/24 0602 ALK PHOS U/L -- -- 48 BILIRUBIN TOTAL mg/dL -- -- 0.3 PROTEIN TOTAL g/dL -- -- 6.5 ALT U/L -- -- 6* AST U/L -- -- 6* ALBUMIN g/dL 3.0* 3.1* 2.9* Estimated Creatinine Clearance: 86.3 mL/min (by C-G formula based on SCr of 1.28 mg/dL). C-Reactive Protein Date Value Ref Range Status 12/07/2024 10.84 (H) <1.00 mg/dL Final 11/10/2024 14.82 (H) <1.00 mg/dL Final 10/10/2024 7.72 (H) <1.00 mg/dL Final Microbiology Susceptibility data from last 14 days. Collected Specimen Info Organism 12/07/24 Tissue/Biopsy from Surgical Site Infection Mixed Gram-Positive and Gram-Negative Bacteria BlCx 12/07 x 2 NGTD Imaging MRI hip/femur ordered Assessment/Plan 49 y.o. 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 Culture again mixed bacteria. While his main problem is the cancer, while here would like to try a metronidazole containing regimen as sometimes it is helpful for odor Recommendations: Continue ceftriaxone/flagyl while here Do not plan IV antibiotics on discharge -he prefers no PICC, and does not have any bugs that require IV therapy Trudi Rodriguez MD Art Therapy Note Kevan La Therapy Session Referral Type: New referral this admission Visit Type: Follow-up visit Session Start Time: 1440 Session End Time: 144 Intervention Delivery: In-person Conflict of Service: Working with other staff Treatment/Interventions Art Therapy Interventions: Assessment, Education/instruction Post-assessment Total Session Time (min): 4 minutes Narrative Assessment Detail: At time of visit RN gooing into room to provde some peersonal care and do a med pass. ATR will follow up another time to introduce and offer services. Education Documentation No documentation found. Images from the original note were not included. Internal Medicine Daily Progress Note Subjective Interval events: NAEO. Pain is feeling slightly better but still hurting. Says he does not want IV antibiotics. No other acute complaints, f/c, n/v. Objective Vitals: Visit Vitals BP 102/65 (BP Location: Right arm, Patient Position: Lying) Pulse 82 Temp 36.7 C (98.1 F) (Temporal) Resp 18 Intake/Output Summary (Last 24 hours) at 12/10/2024 1229 Last data filed at 12/10/2024 0810 Gross per 24 hour Intake 1290 ml Output 1575 ml Net -285 ml Physical exam: General: Awake, alert, conversant, NAD HEENT: PERRL, EOMI, no scleral icterus CV: RRR, no M/R/G RESP: Lungs clear to auscultation bilaterally GI: Soft, NTND, no masses, guarding, or rebound tenderness EXT: No peripheral edema, no asymmetry noted Skin: L open gluteal wound with purulent, malodorous drainage, numerous tracts evident on L glute and thigh. Skin discoloration, and protruding mass evident inferior to above wound. Ulcerous lesion on L thigh. Tracts below this lesion with purulent drainage. Bandage over left glute. Neuro: AOx4, moving all limbs spontaneously, follows commands Medications: acetaminophen, 975 mg, oral, q8h cefTRIAXone, 2 g, intravenous, q24h chlorhexidine, , Topical, BID cholecalciferol, 10,000 Units, oral, Daily clindamycin, , Topical, BID enoxaparin, 40 mg, subcutaneous, Daily fentaNYL, 1 patch, transdermal, q72h [Held by provider] ferrous sulfate, 325 mg, oral, Daily with breakfast folic acid, 1 mg, oral, Daily [Held by provider] gabapentin, 300 mg, oral, Nightly melatonin, 3 mg, oral, Nightly metroNIDAZOLE, 500 mg, oral, q8h BERNADETTE polyethylene glycol, 17 g, oral, Daily sennosides-docusate sodium, 2 tablet, oral, BID tiZANidine, 2 mg, oral, TID varenicline tartrate, 1 mg, oral, BID PRN medications: HYDROmorphone, ondansetron OR ondansetron, oxyCODONE, prochlorperazine OR prochlorperazine OR prochlorperazine Labs: Results from last 72 hours Lab Units 12/10/24 0605 12/09/24 0555 12/08/24 0602 12/07/24 1750 12/07/24 1749 WBC AUTO x10*3/uL 11.5* 10.2 11.5* < > -- HEMOGLOBIN g/dL 8.1* 8.3* 7.8* < > -- HEMATOCRIT % 26.7* 25.6* 26.1* < > -- PLATELETS AUTO x10*3/uL 663* 650* 595* < > -- INR -- 1.3* -- -- -- SODIUM mmol/L 139 140 140 -- 140 POTASSIUM mmol/L 4.1 3.6 3.8 -- 3.9 CHLORIDE mmol/L 102 104 106 -- 109* CO2 mmol/L 29 25 26 -- 22 BUN mg/dL 11 15 17 -- 16 CREATININE mg/dL 1.28 1.20 1.33* -- 1.32* GLUCOSE mg/dL 89 92 112* -- 91 CALCIUM mg/dL 10.1 9.8 9.4 -- 9.6 MAGNESIUM mg/dL 1.90 1.90 -- -- 1.86 PHOSPHORUS mg/dL 3.5 3.4 -- -- -- ALBUMIN g/dL 3.0* 3.1* 2.9* -- 3.1* ALK PHOS U/L -- -- 48 -- 53 ALT U/L -- -- 6* -- 7* AST U/L -- -- 6* -- 8* BILIRUBIN TOTAL mg/dL -- -- 0.3 -- 0.4 < > = values in this interval not displayed. Imaging: No results found. 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 November 29 initial diagnosis December 09: To start chemotherapy with cemiplimab, 21-day cycles Assessment and Plan: Kevan La is a 49 y.o. male with refractory hidradenitis supprativa (HS) and invasive SCC transferred for left gluteal lesion with worsening odor and drainage. Surgical oncology indicates no surgical intervention indicated at this time, recommend systemic therapy and discussion before oncologic resection. Wound is unlikely a result of worsening infection but continuing antibiotics. Updates 12/10/24: - MR hip and femur with contrast ordered - Ceftriaxone 2 gm IV daily with 500mg metronidazole po tid (For odor) - Blood cultures ngtd #Gluteal wound s/p I&D 10/13 #Refractory hidradenitis suppurativa :: Patient with history of refractory HS having failed multiple modalities, now c/b gluteal abscess which he was admitted for 3 weeks ago s/p I&D, BCx with slackia exigua s/p Unasyn complete 10/28/2024 ::CT 12/06: Large fluid collection present within the proximal left upper thigh measuring 8.5 x 8.4 cm in axial dimension and 16.5 cm in length. There is a large overlying wound with cutaneous thickening and subcutaneous edema. ::Pt was d/stephanie 11/27 with one month of Augmentin. Plan: - Wound care consult - Continue Topical Clindamycin BID - MR hip and femur with contrast - Ceftriaxone 2 gm IV daily with 500mg metronidazole po tid (For odor) - ID consulted, appreciate recs #Invasive SCC # Left Gluteus lesions ::biopsy diagnosed 11/15/24. :: Has not started treatment, plan was for cemiplimab 12/[address] Jiang Plan: - Zofran and compazine for nausea - Supportive oncology recs -Hold gabapentin pending lab results given PARUL during last amdisison -Hold ferrous gluconate given possible infection - Plan for outpatient immunotherapy, not possible inpatient Diet: Full DVT prophylaxis: Lovenox Code status: FULL CODE NOK: Omkar La (brother, ) Patient and plan discussed with attending physician. Fer Gupta MD (Wes) IM PGY-1 I have seen and evaluated the patient with Dr. Fer Gupta (Wes), a resident. I reviewed the patient s medical and family history, the resident's findings on physical examination, and the patient s diagnosis and treatment plan with the resident. I discussed the case with the resident in details and agree with the findings and plan as documented in the resident s note. 49 y.o. male with invasive SCC transferred for left gluteal lesion with worsening odor and drainage. No surgical intervention at this time. On Vanco/Zosyn empirically. This morning, he said his pain is OK. It's very positional. MRI hip and femur pending to further evaluate the affected area. Continue ceftriaxone 2 gm IV daily with 500mg metronidazole po tid (For odor). Appreciate ID rec, especially to plan for Abx regimen before discharge. Gibson Mendiola MD, PhD Hematology/Oncology Art Therapy Note Kevan La Therapy Session Referral Type: New referral this admission Visit Type: New visit Session Start Time: 9405 Intervention Delivery: In-person Conflict of Service: Working with other staff Treatment/Interventions Art Therapy Interventions: Assessment, Education/instruction Narrative Assessment Detail: At time of visit Pt was with a Provider. ATR will follow up with Pt another time to introduce and assess services Education Documentation No documentation found. Occupational Therapy Occupational Therapy Evaluation Patient Name: Kevan La Today's Date: 12/09/2024 Room: [address] [place] [address] Time Calculation Start Time: 1509 Stop Time: 1535 Time Calculation (min): 26 min Assessment IP OT Assessment OT Assessment: Patient is a 49 year old male referred to OT for ADL assessment. He participated in bed level evaluation, but resufed out of bed activity due to wound seepage earlier today with PT. He demonstrates decline in ADL performance, and anticipated impaired functional mobility, functional transfer and functional bed mobility. He also identified impaired coping skills and goal of, "not going crazy". Patient would benefit from skilled OT services while in hospital to address these deficits. Prognosis: Good Barriers to Discharge Home: Caregiver assistance, Physical needs Caregiver Assistance: Caregiver assistance needed per identified barriers - however, no caregiver assistance available at home Physical Needs: Stair navigation into home limited by function/safety, In-home setup navigation limited by function/safety, Ambulating household distances limited by function/safety, 24hr mobility assistance needed, 24hr ADL assistance needed, High falls risk due to function or environment Medical Staff Made Aware: Yes End of Session Communication: Bedside nurse End of Session Patient Position: Bed, 3 rail up, Alarm off, not on at start of session Plan: Inpatient Plan Treatment Interventions: ADL retraining, Functional transfer training, Endurance training, Patient/family training, Equipment evaluation/education, Compensatory technique education (functional bed mobility, functional mobility training, coping skills instruction) OT Frequency: 3 times per week OT Discharge Recommendations: Moderate intensity level of continued care OT Recommended Transfer Status: (unable to determine this date, ongoing assessment indicated) OT - OK to Discharge: Yes OT Assessment Prognosis: Good Medical Staff Made Aware: Yes Strengths: Ability to acquire knowledge, Rehab experience Barriers to Participation: Comorbidities Subjective Current Problem: 1. Gluteal abscess General: Reason for Referral: LLE wound with associated abscess Past Medical History Relevant to Rehab: Refractory hidradenitis supprativa and squamous cell carcinoma Prior to Session Communication: Bedside nurse Patient Position Received: Bed, 3 rail up, Alarm off, not on at start of session Precautions: Hearing/Visual Limitations: hearing diminished Medical Precautions: Fall precautions Pain: Pain Assessment Pain Assessment: 0-10 0-10 (Numeric) Pain Score: 5 - Moderate pain Pain Type: Acute pain Pain Location: Leg Pain Orientation: Left Pain Descriptors: Aching, Sore Objective Cognition: Overall Cognitive Status: Within Functional Limits Orientation Level: Oriented X4 year: 0(x4)=0 Month: 0(x3)=) time: 1(x3)=3 backwards countin(x2)=0 months backward: 0(x2)=0 delayed recall: 0(x2)=0 total:3 Home Living: Type of Home: (Patient admitted from SNF.) Home Living Comments: Patient reports being away from home for a long time(since Jun) due to SNF and hospital stays. Prior Function: Level of Mckinley: Needs assistance with ADLs, Needs assistance with functional transfers ADL Assistance: Needs assistance (for lower body dressing and bathing below knees, able to complete above knee) Grooming: (independent) Feeding: (independent) Homemaking Assistance: Needs assistance Ambulatory Assistance: Needs assistance Vocational: (Has been unemployed since June.) Hand Dominance: Right ADL: Eating Assistance: Independent Grooming Assistance: Independent Grooming Deficit: Setup Bathing Assistance: Moderate (below knee, min assist above knees/buttocks, assist for back) UE Dressing Assistance: Minimal LE Dressing Assistance: Moderate Toileting Assistance with Device: Not performed Activity Tolerance: Endurance: Tolerates 10 - 20 min exercise with multiple rests Balance: Dynamic Sitting Balance Dynamic Sitting-Level of Assistance: (not tested) Dynamic Standing Balance Dynamic Standing-Level of Assistance: (not tested) Static Sitting Balance Static Sitting-Level of Assistance: (not tested) Static Standing Balance Static Standing-Level of Assistance: (not tested) Bed Mobility/Transfers: Bed Mobility Bed Mobility: No (Patient declined bed mobility due to earlier mobility causing seeping of wound.) Functional Mobility Functional Mobility Performed: No (Patient declined functional mobility.) and Transfers Transfer: No (Patient declined functional transfer indicating that earlier mobility with PT caused seeping of wound.) IADL's: Vision: Vision - Basic Assessment Current Vision: Wears glasses for distance only and Sensation: Light Touch: No apparent deficits (Patient denies any deficits.) Coordination: Movements are Fluid and Coordinated: Yes Hand Function: Hand Function Gross Grasp: Functional Extremities: RUE RUE : Within Functional Limits, LUE LUE: Within Functional Limits, , and Outcome Measures: [facility] Daily Activity Putting on and taking off regular lower body clothing: A lot Bathing (including washing, rinsing, drying): A lot Putting on and taking off regular upper body clothing: A little Toileting, which includes using toilet, bedpan or urinal: Total Taking care of personal grooming such as brushing teeth: None Eating Meals: None Daily Activity - Total Score: 16 , OT Adult Other Outcome Measures Short Blessed Test (SBT): 3- within normal range Education Documentation Body Mechanics, taught by Shereen Santoyo OT at 12/09/2024 3:50 PM. Learner: Patient Readiness: Acceptance Method: Explanation Response: Verbalizes Understanding, Needs Reinforcement Precautions, taught by Shereen Santoyo OT at 12/09/2024 3:50 PM. Learner: Patient Readiness: Acceptance Method: Explanation Response: Verbalizes Understanding, Needs Reinforcement ADL Training, taught by Shereen Santoyo OT at 12/09/2024 3:50 PM. Learner: Patient Readiness: Acceptance Method: Explanation Response: Verbalizes Understanding, Needs Reinforcement Education Comments No comments found. Goals: Encounter Problems Encounter Problems (Active) ADLs Patient will perform UB and LB bathing seated EOB with stand by assist level of assistance and long-handled sponge. Start: 12/09/24 Patient with complete upper body dressing with stand by assist level of assistance donning and doffing all UE clothes with no adaptive equipment while edge of bed Start: 12/09/24 Patient with complete lower body dressing with stand by assist level of assistance donning and doffing all LE clothes with PRN adaptive equipment while edge of bed Start: 12/09/24 Patient will complete toileting including hygiene clothing management/hygiene with stand by assist level of assistance and grab bars. Start: 12/09/24 MOBILITY Patient will perform Functional mobility min Household distances with stand by assist level of assistance and front wheeled walker in order to improve safety and functional mobility. Start: 12/09/24 TRANSFERS Patient will perform bed mobility modified independent level of assistance and grab bars in order to improve safety and independence with mobility Start: 12/09/24 Patient will complete functional transfer to all surfaces with front wheeled walker with stand by assist level of assistance. Start: 12/09/24 12/09/24 at 3:51 PM Shereen Santoyo OT Rehab Office: [phone] Physical Therapy Physical Therapy Evaluation & Treatment Patient Name: Kevan La Department: [facility] Room: [address] [place] [address] Today's Date: 12/09/2024 Time Calculation Start Time: 1212 Stop Time: 1239 Time Calculation (min): 27 min Assessment/Plan PT Assessment PT Assessment Results: Decreased strength, Decreased endurance, Impaired balance, Decreased mobility, Pain Rehab Prognosis: Good Barriers to Discharge Home: No anticipated barriers Evaluation/Treatment Tolerance: Patient tolerated treatment well Medical Staff Made Aware: Yes Strengths: Rehab experience Barriers to Participation: Comorbidities End of Session Communication: Bedside nurse Assessment Comment: 49 y.o. male presents from SNF with LLE wound. Pt is able to walk to door and back this session with FWW and CGA. Pt is limited by pain, weakness, and decreased endurance. Pt is appropriate to return to SNF for therapy after DC to address these deficits. End of Session Patient Position: Bed, 3 rail up, Alarm off, not on at start of session IP OR SWING BED PT PLAN Inpatient or Swing Bed: Inpatient PT Plan Treatment/Interventions: Bed mobility, Transfer training, Gait training, Stair training, Balance training, Strengthening, Endurance training, Range of motion, Therapeutic exercise, Therapeutic activity PT Plan: Ongoing PT PT Frequency: 3 times per week PT Discharge Recommendations: Moderate intensity level of continued care Equipment Recommended upon Discharge: (Owns) PT Recommended Transfer Status: Assistive device, Contact guard PT - OK to Discharge: Yes Subjective General Visit Information: General Reason for Referral: LLE wound with associated abscess Past Medical History Relevant to Rehab: Refractory hidradenitis supprativa and squamous cell carcinoma PT Missed Visit: Yes Missed Visit Reason: (Pt reporting feeling very nauseous this AM. Will follow up as pt's symptoms improve.) Family/Caregiver Present: No Prior to Session Communication: Bedside nurse Patient Position Received: Bed, 3 rail up, Alarm off, not on at start of session Preferred Learning Style: auditory, verbal, visual General Comment: Pt pleasant and agreeable to PT session, feeling much better than in AM Home Living: Home Living Type of Home: Half-Way facility Home Living Comments: Pt reports he has been in hospital or SNF since Prior Level of Function: Prior Function Per Pt/Caregiver Report Level of Mckinley: Needs assistance with ADLs, Needs assistance with homemaking (Assist for LE dressing and bathing) Ambulatory Assistance: Needs assistance (Using FWW. 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) Precautions: Precautions Hearing/Visual Limitations: WFL Medical Precautions: Fall precautions Date/Time Vitals Session Patient Position Pulse Resp SpO2 BP MAP (mmHg) 12/09/24 1240 -- -- 58 18 97 % 92/55 67 Objective Pain: Pain Assessment Pain Assessment: 0-10 0-10 (Numeric) Pain Score: 5 - Moderate pain Pain Type: Acute pain Pain Location: Leg Pain Orientation: Left Pain Interventions: Ambulation/increased activity, Repositioned Cognition: Cognition Overall Cognitive Status: Within Functional Limits Orientation Level: Oriented X4 Insight: Within function limits Impulsive: Within functional limits General Assessments: Activity Tolerance Endurance: Tolerates 10 - 20 min exercise with multiple rests Early Mobility/Exercise Safety Screen: Proceed with mobilization - No exclusion criteria met Sensation Light Touch: No apparent deficits Coordination Movements are Fluid and Coordinated: Yes Postural Control Postural Control: Impaired (Forward flexed posture, able to improve with cueing) Static Sitting Balance Static Sitting-Balance Support: Feet unsupported, Bilateral upper extremity supported Static Sitting-Level of Assistance: Contact guard Static Sitting-Comment/Number of Minutes: Pt cannot sit with any pressure on L glute Static Standing Balance Static Standing-Balance Support: Bilateral upper extremity supported Static Standing-Level of Assistance: Contact guard Functional Assessments: Bed Mobility Bed Mobility: Yes Bed Mobility 1 Bed Mobility 1: Rolling right, Supine to sitting Level of Assistance 1: Contact guard Bed Mobility Comments 1: Pt rolling to R, immediately bringing LEs off EOB into stand, as he cannot tolerate pressure through his L glue Bed Mobility 2 Bed Mobility 2: Sitting to supine Level of Assistance 2: Close supervision Transfers Transfer: Yes Transfer 1 Transfer From 1: Bed to, Stand to Transfer to 1: Stand, Bed Technique 1: Sit to stand, Stand to sit Transfer Device 1: Walker Transfer Level of Assistance 1: Contact guard Ambulation/Gait Training Ambulation/Gait Training Performed: Yes Ambulation/Gait Training 1 Surface 1: Level tile Device 1: Rolling walker Assistance 1: Contact guard Quality of Gait 1: Wide base of support, Antalgic, Forward flexed posture, Decreased step length Comments/Distance (ft) 1: 24ft Stairs Stairs: No Extremity/Trunk Assessments: RLE RLE : Within Functional Limits LLE LLE : Exceptions to WFL Strength LLE LLE Overall Strength: Due to pain, Greater than or equal to 3/5 as evidenced by functional mobility Treatments: Treatment for increased time performing static and dynamic standing balance to perform LE dressing. Outcome Measures: [facility] Basic Mobility Turning from your back to your side while in a flat bed without using bedrails: A little Moving from lying on your back to sitting on the side of a flat bed without using bedrails: A little Moving to and from bed to chair (including a wheelchair): A little Standing up from a chair using your arms (e.g. wheelchair or bedside chair): A little To walk in hospital room: A little Climbing 3-5 steps with railing: Total Basic Mobility - Total Score: 16 Encounter Problems Encounter Problems (Active) Balance STG - Maintains dynamic standing balance with upper extremity support and SBA with no LOB for >60s (Progressing) Start: 12/09/24 Expected End: 12/23/24 INTERVENTIONS:1. Practice standing with minimal support.2. Educate patient about standing tolerance.3. Educate patient about independence with gait, transfers, and ADL's.4. Educate patient about use of assistive device.5. Educate patient about self-directed care. Mobility LTG - Patient will ambulate 100ft with SBA and LRD (Progressing) Start: 12/09/24 Expected End: 12/23/24 LTG - Patient will navigate 1 step with SBA and rails/device to facilitate return to community ambulator (Not Progressing) Start: 12/09/24 Expected End: 12/23/24 PT Transfers STG - Patient will perform bed mobility with modified independence (Progressing) Start: 12/09/24 Expected End: 12/23/24 STG - Patient will transfer sit to and from stand independently with LRD (Progressing) Start: 12/09/24 Expected End: 12/23/24 Pain - Adult Education Documentation Body Mechanics, taught by Kirsten Zhang PT at 12/09/2024 1:22 PM. Learner: Patient Readiness: Eager Method: Explanation, Demonstration Response: Verbalizes Understanding, Demonstrated Understanding Comment: PT POC Precautions, taught by Kirsten Zhang PT at 12/09/2024 1:22 PM. Learner: Patient Readiness: Eager Method: Explanation, Demonstration Response: Verbalizes Understanding, Demonstrated Understanding Comment: PT POC Mobility Training, taught by Kirsten Zhang PT at 12/09/2024 1:22 PM. Learner: Patient Readiness: Eager Method: Explanation, Demonstration Response: Verbalizes Understanding, Demonstrated Understanding Comment: PT POC Education Comments No comments found. 12/09/24 1000 Discharge Planning Living Arrangements Other (Comment);Alone (admitted from [facility]) Support Systems Family members;Other (Comment) (SNF staff, SNF SW) Assistance Needed skilled, PT/OT Type of Residence nursing home facility Do you have animals or pets at home? No Home or Post Acute Services Post acute facilities (Rehab/SNF/etc) (return to [facility]) Type of Post Acute Facility Services nursing home Expected Discharge Disposition SNF Does the patient need discharge transport arranged? Yes RoundTrip coordination needed? Yes Has discharge transport been arranged? No Patient Choice Provider Choice list and CMS website (https://medicare.gov/care-compar e#search) for post-acute Quality and Resource Measure Data were provided and reviewed with: Patient Patient / Family choosing to utilize agency / facility established prior to hospitalization Yes SW met with pt to introduce role and discuss discharge planning. Pt admitted from [facility]; pt reports that he's been there on and off since September. Pt confirmed demographic and insurance details. SW contact details written on the whiteboard in pt room. Return referral sent to [facility]. SW will follow. Fer CORTES 12/09/2024 1040 Per [facility], pt's current auth expires on 12/11. Further discharge planning pending updates from the care team. SW will follow. Fer Hidalgo [facility] [place] PRIOR AUTHORIZATION TECHNICIAN Physical Therapy Therapy Communication Note Patient Name: Keavn La Department: [facility] Room: [address] [place] [address] Today's Date: 12/09/2024 Discipline: Physical Therapy PT Missed Visit: Yes Missed Visit Reason: Missed Visit Reason: (Pt reporting feeling very nauseous this AM. Will follow up as pt's symptoms improve.) Missed Time: Attempt Images from the original note were not included. Internal Medicine Daily Progress Note Subjective Interval events: NAEO. Feeling nauseous, trying zofran/compazine. Pain is ok. Objective Vitals: Visit Vitals BP 115/67 (BP Location: Right arm, Patient Position: Lying) Pulse 84 Temp 36.5 C (97.7 F) (Temporal) Resp 16 Intake/Output Summary (Last 24 hours) at 12/09/2024 1618 Last data filed at 12/09/2024 1558 Gross per 24 hour Intake 805 ml Output 1075 ml Net -270 ml Physical exam: General: Awake, alert, conversant, NAD HEENT: PERRL, EOMI, no scleral icterus CV: RRR, no M/R/G RESP: Lungs clear to auscultation bilaterally GI: Soft, NTND, no masses, guarding, or rebound tenderness EXT: No peripheral edema, no asymmetry noted Skin: L open gluteal wound with purulent, malodorous drainage, numerous tracts evident on L glute and thigh. Skin discoloration, and protruding mass evident inferior to above wound. Ulcerous lesion on L thigh. Tracts below this lesion with purulent drainage. Neuro: AOx4, moving all limbs spontaneously, follows commands Medications: acetaminophen, 975 mg, oral, q8h chlorhexidine, , Topical, BID cholecalciferol, 10,000 Units, oral, Daily clindamycin, , Topical, BID enoxaparin, 40 mg, subcutaneous, Daily fentaNYL, 1 patch, transdermal, q72h [Held by provider] ferrous sulfate, 325 mg, oral, Daily with breakfast folic acid, 1 mg, oral, Daily [Held by provider] gabapentin, 300 mg, oral, Nightly lactated Ringer's, 1,000 mL, intravenous, Once melatonin, 3 mg, oral, Nightly piperacillin-tazobactam, 3.375 g, intravenous, q6h polyethylene glycol, 17 g, oral, Daily sennosides-docusate sodium, 2 tablet, oral, BID tiZANidine, 2 mg, oral, TID vancomycin, 1,250 mg, intravenous, q24h varenicline tartrate, 1 mg, oral, BID PRN medications: HYDROmorphone, ondansetron OR ondansetron, oxyCODONE, prochlorperazine OR prochlorperazine OR prochlorperazine, vancomycin Labs: Results from last 72 hours Lab Units 12/09/24 0555 12/08/24 0602 12/07/24 1750 12/07/24 1749 WBC AUTO x10*3/uL 10.2 11.5* 12.0* -- HEMOGLOBIN g/dL 8.3* 7.8* 8.0* -- HEMATOCRIT % 25.6* 26.1* 26.5* -- PLATELETS AUTO x10*3/uL 650* 595* 645* -- INR 1.3* -- -- -- SODIUM mmol/L 140 140 -- 140 POTASSIUM mmol/L 3.6 3.8 -- 3.9 CHLORIDE mmol/L 104 106 -- 109* CO2 mmol/L 25 26 -- 22 BUN mg/dL 15 17 -- 16 CREATININE mg/dL 1.20 1.33* -- 1.32* GLUCOSE mg/dL 92 112* -- 91 CALCIUM mg/dL 9.8 9.4 -- 9.6 MAGNESIUM mg/dL 1.90 -- -- 1.86 PHOSPHORUS mg/dL 3.4 -- -- -- ALBUMIN g/dL 3.1* 2.9* -- 3.1* ALK PHOS U/L -- 48 -- 53 ALT U/L -- 6* -- 7* AST U/L -- 6* -- 8* BILIRUBIN TOTAL mg/dL -- 0.3 -- 0.4 Imaging: No results found. 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 November 29 initial diagnosis December 09: To start chemotherapy with cemiplimab, 21-day cycles Assessment and Plan: Kevan La is a 49 y.o. male with refractory hidradenitis supprativa (HS) and invasive SCC transferred for left gluteal lesion with worsening odor and drainage. Surgical oncology indicates no surgical intervention indicated at this time, recommend systemic therapy and discussion before oncologic resection. On Vanco/Zosyn empirically, do not believe wound is result of worsening infection but will need home going antibiotic regimen. Updates 12/09/24: - MR hip and femur with contrast - Continue vanc/zosyn pending blood cultures clear x48hrs - ID consulted #Gluteal abscess s/p I&D 10/13 #Refractory hidradenitis suppurativa :: Patient with history of refractory HS having failed multiple modalities, now c/b gluteal abscess which he was admitted for 3 weeks ago s/p I&D, BCx with slackia exigua s/p Unasyn complete 10/28/2024 ::CT 12/06: Large fluid collection present within the proximal left upper thigh measuring 8.5 x 8.4 cm in axial dimension and 16.5 cm in length. There is a large overlying wound with cutaneous thickening and subcutaneous edema. ::Pt was d/stephanie 11/27 with one month of Augmentin. Plan: - Wound care consult - Continue Topical Clindamycin BID - MR hip and femur with contrast - Continue vanc/zosyn pending blood cultures clear x48hrs - ID consulted #Invasive SCC ::biopsy diagnosed 11/15/24 :: Has not started treatment, plan was for cemiplimab 12/[address] Jiang Plan: - Zofran and compazine for nausea - Supportive oncology recs - Plan for outpatient immunotherapy, not possible inpatient -Hold gabapentin pending lab results given PARUL during last amdisison -Hold ferrous gluconate given possible infection Diet: Full DVT prophylaxis: Lovenox Code status: FULL CODE NOK: Omkar La (brother, ) Patient and plan discussed with attending physician. Fer Gupta MD (Wes) IM PGY-1 ----- I have seen and evaluated the patient with Dr. Fer Gupta (Wes), a resident. I reviewed the patient s medical and family history, the resident's findings on physical examination, and the patient s diagnosis and treatment plan with the resident. I discussed the case with the resident in details and agree with the findings and plan as documented in the resident s note. 49 y.o. male with invasive SCC transferred for left gluteal lesion with worsening odor and drainage. No surgical intervention at this time. On Vanco/Zosyn empirically. This morning, he said he still has pain, prn meds help but the effects were wearing out (he was due for another dose). He has fentanyl patch but not sure if it is helping. Otherwise no new physical complaints and no acute distress. Will get MRI of hip and femur. ID is on board. Gibson Mendiola MD, PhD Hematology/Oncology [facility] Medication History Review Kevan La is a 49 y.o. male admitted for Gluteal abscess. Pharmacy reviewed the patient's [id number] medications and allergies for accuracy. Medications ADDED: None Medications CHANGED: Ibuprofen every 6 hours to every 4 hours Medications REMOVED: Vitamin D3 10,000 units The list below reflects the updated QUALITY OFFICER list. Prior to Admission Medications Prescriptions Last Dose Informant acetaminophen (Tylenol) 325 mg tablet Other Sig: Take 3 tablets (975 mg) by mouth every 8 hours. amoxicillin-pot clavulanate (Augmentin) 875-125 mg tablet Other Sig: Take 1 tablet by mouth 2 times a day. bimekizumab-bkzx (Bimzelx Autoinjector) 160 mg/mL auto-injector Not Taking Other Sig: Inject 320 mg under the skin see administration instructions. Take 1 dose (320mg) every 2 weeks for 9 doses (16 weeks), then take 1 dose every 4 weeks. Patient not taking: Reported on 12/08/2024 (not on facility med list) After chart review- likely waiting for insurance approval chlorhexidine (Hibiclens) 4 % external liquid Other Sig: Apply topically 2 times a day. clindamycin (Cleocin T) 1 % gel Other Sig: Apply topically 2 times a day. Apply to left thigh around incision and drainage site, do not apply directly to surgery site enoxaparin (Lovenox) 40 mg/0.4 mL syringe Other Sig: Inject 0.4 mL (40 mg) under the skin once every 24 hours. fentaNYL (Duragesic) 75 mcg/hr patch Not Taking Sig: Place 1 patch over 72 hours on the skin every 3rd day for 9 days. Patient not taking: Reported on 12/08/2024 Not on [facility] med list as of 12/06 (not in [facility] as well) ferrous sulfate 325 (65 Fe) MG EC tablet Other Sig: Take 1 tablet by mouth once daily with breakfast. Do not crush, chew, or split. folic acid (Folvite) 1 mg tablet Other Sig: Take 1 tablet (1 mg) by mouth once daily. gabapentin (Neurontin) 300 mg capsule Other Sig: Take 1 capsule (300 mg) by mouth once daily at bedtime. ibuprofen 200 mg tablet Other Sig: Take 3 tablets (600 mg) by mouth every 4 hours. lactose-reduced food (ENSURE PLUS ORAL) Other Sig: Take by mouth once daily in the morning. lactulose 20 gram/30 mL oral solution Other Sig: Take 30 mL (20 g) by mouth 3 times a day. melatonin 3 mg tablet Other Sig: Take 1 tablet (3 mg) by mouth once daily at bedtime. multivitamin with minerals tablet Not Taking Other Sig: Take 1 tablet by mouth once daily. Patient not taking: Reported on 12/08/2024 naloxone (Narcan) 0.4 mg/mL injection Other Sig: Infuse 0.5 mL (0.2 mg) into a venous catheter if needed for opioid reversal. ondansetron (Zofran) 4 mg/2 mL injection Other Sig: Infuse 4 mL (8 mg) into a venous catheter every 8 hours if needed for vomiting or nausea. oxyCODONE (Roxicodone) 20 mg immediate release tablet Sig: Take 1 tablet (20 mg) by mouth every 3 hours if needed for severe pain (7 - 10) or moderate pain (4 - 6) for up to 5 days. Patient taking differently: Take 0.5 tablets (10 mg) by mouth every 6 hours if needed for severe pain (7 - 10) or moderate pain (4 - 6). polyethylene glycol (Glycolax, Miralax) 17 gram packet Self, Other Sig: Take 17 g by mouth once daily. sennosides-docusate sodium (Leda-Colace) 8.6-50 mg tablet Other Sig: Take 2 tablets by mouth 2 times a day. Patient taking differently: Take 2 tablets by mouth once daily. tiZANidine (Zanaflex) 2 mg tablet Self, Other Sig: Take 1 tablet (2 mg) by mouth 3 times a day. varenicline tartrate (Chantix) 0.5 mg tablet Not Taking Self, Other Sig: Take 1 tablet (0.5 mg) by mouth 2 times a day for 4 days, THEN 2 tablets (1 mg) 2 times a day. Take with full glass of water.. Do not fill before October 22, 2024. Patient not taking: Reported on 12/08/2024 Facility-Administered Medications: None The list below reflects the updated allergy list. Please review each documented allergy for additional clarification and justification. Allergies Reviewed by Latricia Covarrubias RN on 12/07/2024 No Known Allergies Patient declines M2B at discharge. Sources: SNF -- [facility] Heme/onc AVS from 11/29 Additional Comments: QUALITY OFFICER medication list updated per [facility] SNF medication list Medication flow sheet from 11/08-12/06 Please review additional comments above for additional comments Connie Choi, PharmD Transitions of Care Pharmacist 12/08/24 Secure Chat preferred If no response call [phone] or [facility] "Med Rec" 12/08/24 1221 Discharge Planning Living Arrangements Other (Comment) (Currently at Care Home) Support Systems Family members (Family all lives in [place], so supportive but distant) Type of Residence nursing home facility Home or Post Acute Services Post acute facilities (Rehab/SNF/etc) Type of Post Acute Facility Services nursing home Expected Discharge Disposition SNF Patient Choice Patient / Family choosing to utilize agency / facility established prior to hospitalization Yes Met with patient bedside, [facility] is [facility] [place]; where he admitted Medicaid pending in 11/12; since then does have current insurance. Admit for worsening wound/gluteal fluid collection ; started on IVAB There were plans in place for oncology, will need to confirm plans closer to [place] to relay to SNF. Socially patient is worried about ever being able to return to his home, which he states is not his own, but the owners may have to sell. All of his belongings are there; we talked about seeing if family coming to assist is an option, to which he states they all live in [place]. This bid writer suggests as well talk to the SW/AVIVA at the SNF and coordinating with a [facility] Conventional Underwriter, that there may be local resources to help him move his belongings. Vancomycin Dosing by Pharmacy- FOLLOW UP Kevan La is a 49 y.o. year old male who Pharmacy has been consulted for vancomycin dosing for cellulitis, skin and soft tissue. Based on the patient's indication and renal status this patient is being dosed based on a goal AUC of 400-600. Renal function is currently stable. Crcl 83.1ml/min. Intermediate fit per [facility], continue to monitor scr closely. Current vancomycin dose: 1000 mg given every 12 hours Estimated vancomycin AUC on current dose: 869 mg/L.hr Visit Vitals BP 90/55 Pulse 67 Temp 36.6 C (97.9 F) (Temporal) Resp 16 Lab Results Component Value Date CREATININE 1.33 (H) 12/08/2024 CREATININE 1.32 (H) 12/07/2024 CREATININE 1.38 (H) 11/27/2024 CREATININE 1.22 11/26/2024 Patient weight is as follows: Vitals: 12/07/24 1658 Weight: 89.4 kg (197 lb 1.5 oz) Cultures: No results found for the encounter in last 14 days. I/O last 3 completed shifts: In: 490 (5.5 mL/kg) [P.O.:440; IV Piggyback:50] Out: 125 (1.4 mL/kg) [Urine:125 (0 mL/kg/hr)] Weight: 89.4 kg I/O during current shift: I/O this shift: In: 370 [P.O.:120; IV Piggyback:250] Out: 225 [Urine:225] Temp (24hrs), Av.6 C (97.8 F), Min:36.1 C (97 F), Max:37 C (98.6 F) Assessment/Plan Above goal AUC. Orders placed for new vancomcyin regimen of 1250mg every 24 hours to begin at 1000 on 12/09. This dosing regimen is predicted by [facility] to result in the following pharmacokinetic parameters: Loading dose: N/A Regimen: 1250 mg IV every 24 hours. Start time: 10:27 on 12/09/2024 Exposure target: AUC24 (range)400-600 mg/L.hr [id number]: 570 mg/L.hr AUC24,ss: 549 mg/L.hr Probability of AUC24 > 400: 94 % Ctrough,ss: 12.5 mg/L Probability of Ctrough,ss > 20: 9 % The next level will be obtained on 12/10 at 0500. May be obtained sooner if clinically indicated. Will continue to monitor renal function daily while on vancomycin and order serum creatinine at least every 48 hours if not already ordered. Follow for continued vancomycin needs, clinical response, and signs/symptoms of toxicity. Alberto CaroD Kevan La is a 49 y.o. male on day 1 of admission presenting with Gluteal abscess. Kevan La is a 49 y.o. male with refractory hidradenitis supprativa (HS) not responding to povorcitinib (RCT candidate), apremilast, isotretinoin, adalimumab, infliximab, moxifloxacin/metronidazole, minocyclin, clindamycin, rifampin, augmentin and doxycycline, and invasive SCC who is returning to [facility] 12/08/2024 as a transfer from [facility] regarding gluteal fluid collection. 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 November 29 initial diagnosis December 09: To start chemotherapy with cemiplimab, 21-day cycles Previous Hospital Course Notably, the pt was admitted at [facility] 11/10-11/27 after her arrived from [facility] and CT revealed large ulcerative wound at the left buttock which was biopsied 11/12 and 11/15 and revealed invasive SCC. pt has been following with Dr. Jiang with plan to start Cemipilimab. Wound Cx grew proteus mirabilis susceptible to Augmentin. Blood cultures were sterile. Pt was initially on Vanc and Zosyn, then deescalated to PO Augmentin. Given concern for worsening wound infection on 11/22, pt restarted on zosyn. Was discharged to SNF on Augmentin for one month. Subjective Today he presents as transfer from [facility] (where he was brought to from [facility]) with reports that his wound looks worse. States for the last week he has noticed increased odor and discharge (unclear what color). Endorses taking his Augmentin. Denies any worsening pain. States during this time he has felt fatigued and endorses nausea and NBNB vomiting. Denies any fever, chills, or any other symptoms. States his appetite has been good. Pt states he feels his wound looks worse than usual. Objective Physical Exam SKIN: L open gluteal wound with purulent, malodorous drainage, numerous tracts evident on L glute and thigh. Skin discoloration, and protruding mass evident inferior to above wound. Ulcerous lesion on L thigh. Tracts below this lesion with purulent drainage. GEN: No acute distress, nontoxic appearing. Alert, awake and conversant. HEENT: Sclera anicteric. Moist mucous membranes. RESP: Breathing non-labored, equal chest rise. On RA. CV: Regular rate, normotensive GI: Abdomen soft, nondistended, nontender. : Voiding spontaneously. NEURO: Alert and oriented x3. No focal deficits. PSYCH: Appropriate mood and affect. Last Recorded Vitals Blood pressure 102/65, pulse 66, temperature 36.1 C (97 F), temperature source Temporal, resp. rate 16, height 2.006 m (6' 6.98"), weight 89.4 kg (197 lb 1.5 oz), SpO2 98%. Intake/Output last 3 Shifts: I/O last 3 completed shifts: In: 490 (5.5 mL/kg) [P.O.:440; IV Piggyback:50] Out: 125 (1.4 mL/kg) [Urine:125 (0 mL/kg/hr)] Weight: 89.4 kg Relevant Results CBC Presenting with slight leukocytosis 11.5 however previous counts all between 10-14 hemoglobin 7.8 previous counts between 8 and 9 platelets 595 previous counts between 608 100 RFP Glucose sodium potassium bicarb all stable Creatinine slightly elevated at 1.32 early November and the 1.2 was ranges between 1.2 to 1.4 Liver liver function test WNL ESR CRP both elevated 102 and 10.84 respecitvely Micro: Wound culture from yesterday evening 2+ mixed positive bacteria.. rest still in progress Imaging large wound along the proximal posterior thigh with a large abscess within the posterior compartment of the left upper thigh there is also cellulitis. No obvious acute cortical erosion Marol not assessed Assessment/Plan Assessment & Plan Gluteal abscess Kevan La is a 49 y.o. male with refractory hidradenitis supprativa (HS) and invasive SCC who is returning to [facility] 11/10/2024 as a transfer from [facility] regarding gluteal wound with worsening odor and drainage. Currently on Vanc/Zosyn for possible infection and consult ACS for possible I&D. Overall plan: Further imaging will help ACS determine next steps , if imaging is consistent with necrotic tumor, then, surgical oncology consult would be appropriate. Currently Zofran for nausea Compazine for nausea refractory to Zofran Resumed regular diet MR hip and femur with contrast for ACS to consider next steps Follow supportive oncology recommendations Wound care consult TO DO: Email Dr. Jiang, he was supposed to start immunotherapy next week Follow MRI of left hip and femur Follow ACS recommendations after the MR left hip and femur has been done [they are awaiting imaging for further recommendations] If magnet if MRI shows necrotic tumor source, may consider surgical oncology consult #Gluteal abscess s/p I&D 10/13 #Refractory hidradenitis suppurativa ::Patient with history of refractory HS having failed multiple modalities, now c/b gluteal abscess which he was admitted for 3 weeks ago s/p I&D, BCx with slackia exigua s/p Unasyn complete 10/28/2024 presenting to OSH with initial c/f sepsis found to have worsening gluteal abscess ::CT 11/08/2024: Large ulcerative wound at the left buttock with an adjacent 14.9 cm enhancing mass involving the left gluteal muscles and overlying subcutaneous tissue, larger than CT in 08/2024 ::CT 12/06: Large fluid collection present within the proximal left upper thigh measuring 8.5 x 8.4 cm in axial dimension and 16.5 cm in length. There is a large overlying wound with cutaneous thickening and subcutaneous edema. ::Pt was d/stephanie 11/27 with one month of Augmentin. - Hold Augmentin and PO iron iso likely active infection Plan - Started Vanc/Zosyn 12/07 - Follow BCx and Wound Cx ,Admission CBC, CMP, Mag, ESR, CRP, repeat BCx - Continue Topical Clindamycin BID - Wound care consulted -Follow ACS recs - Follow MRI of left hip and femur #Invasive SCC, biopsy diagnosed 11/15/24 - Awaiting outpatient PET CT w/ LN bx -Plan was for first round cemiplimab 12/13, and upcoming appointment with supportive onc 12/17 -Pt Oncologist Dr. Jiang- pls inform in AM - Supportive Onc consulted and they recommended: fentanyl patch, 20mg oxycodone q3h, and 1.0 mg IV dilaudid q2h PRN for BT pain. #MISC -Hold gabapentin pending lab results given PARUL during last amdisison -Hold ferrous gluconate given possible infection DVT prophylaxis: Lovenox Code status: FULL CODE NOK: Omkar La (brother, ) Abby Beck MD Cosigned by Toya Rubio MD at 12/08/2024 5:14 PM EDT Associated attestation - Toya Rubio MD - 12/08/2024 5:14 PM EDT I saw and evaluated the patient. I personally obtained the gomez and critical portions of the history and physical exam or was physically present for gomez and critical portions performed by the resident/fellow. I reviewed the resident/fellow's documentation and discussed the patient with the resident/fellow. I agree with the resident/fellow's medical decision making as documented in the note. 49 yo with refractory hidradenitis supprativa and invasive SCC of the L hip transferred to [facility] after presenting to [facility] ED with worsening pain found to have gluteal fluid collection. Unclear whether abscess vs necrosis. MRI to further evaluate. Adjust antiemetic regimen for ongoing nausea Toya Rubio MD Staff, Gastrointestinal Medical Oncology [facility] Vancomycin Dosing by Pharmacy- INITIAL Kevan La is a 49 y.o. year old male who Pharmacy has been consulted for vancomycin dosing for cellulitis, skin and soft tissue. Based on the patient's indication and renal status this patient will be dosed based on a goal AUC of 400-600. Renal function is currently stable. Visit Vitals BP 95/63 (BP Location: Right arm, Patient Position: Lying) Pulse 64 Temp 36.7 C (98.1 F) (Temporal) Resp 16 Lab Results Component Value Date CREATININE 1.32 (H) 12/07/2024 CREATININE 1.38 (H) 11/27/2024 CREATININE 1.22 11/26/2024 CREATININE 1.29 11/25/2024 Patient weight is as follows: There were no vitals filed for this visit. Cultures: No results found for the encounter in last 14 days. No intake/output data recorded. I/O during current shift: No intake/output data recorded. Temp (24hrs), Av C (98.6 F), Min:36.7 C (98.1 F), Max:37.2 C (99 F) Assessment/Plan Patient will not be given a loading dose. Will initiate vancomycin maintenance, 1000 mg every 12 hours. This dosing regimen is predicted by [facility] to result in the following pharmacokinetic parameters: Regimen: 1000 mg IV every 12 hours. Start time: 18:52 on 12/07/2024 Exposure target: AUC24 (range)400-600 mg/L.hr [id number]: 419 mg/L.hr AUC24,ss: 556 mg/L.hr Probability of AUC24 > 400: 84 % Ctrough,ss: 18.6 mg/L Probability of Ctrough,ss > 20: 42 % Follow-up level will be ordered on 12/08 at AM labs unless clinically indicated sooner. Will continue to monitor renal function daily while on vancomycin and order serum creatinine at least every 48 hours if not already ordered. Follow for continued vancomycin needs, clinical response, and signs/symptoms of toxicity. Carin Kim PharmD documented in this encounter [facility] Work Phone: 12-19-2024 Miscellaneous Notes The patient's goals for the shift include The clinical goals for the shift include Pt will remain HDS and free from falls thorughout shift Goal met The clinical goals for the shift include Pt will remain HDS and free from falls thorughout shift Problem: Pain - Adult Goal: Verbalizes/displays adequate comfort level or baseline comfort level Outcome: Progressing Problem: Safety - Adult Goal: Free from fall injury Outcome: Progressing Problem: Discharge Planning Goal: Discharge to home or other facility with appropriate resources Outcome: Progressing Problem: Chronic Conditions and Co-morbidities Goal: Patient's chronic conditions and co-morbidity symptoms are monitored and maintained or improved Outcome: Progressing Problem: Nutrition Goal: Nutrient intake appropriate for maintaining nutritional needs Outcome: Progressing Problem: Skin Goal: Decreased wound size/increased tissue granulation at next dressing change Outcome: Progressing Flowsheets (Taken 12/18/2024 1227) Decreased wound size/increased tissue granulation at next dressing change: Promote sleep for wound healing Protective dressings over bony prominences Goal: Participates in plan/prevention/treatment measures Outcome: Progressing Flowsheets (Taken 12/18/20241226) Participates in plan/prevention/treatment measures: Discuss with provider PT/OT consult Elevate heels Increase activity/out of bed for meals Goal: Prevent/manage excess moisture Outcome: Progressing Flowsheets (Taken 12/18/20241226) Prevent/manage excess moisture: Monitor for/manage infection if present Moisturize dry skin Goal: Prevent/minimize sheer/friction injuries Outcome: Progressing Flowsheets (Taken 12/18/20241226) Prevent/minimize sheer/friction injuries: Use pull sheet HOB 30 degrees or less Turn/reposition every 2 hours/use positioning/transfer devices Goal: Promote/optimize nutrition Outcome: Progressing Flowsheets (Taken 12/18/20241226) Promote/optimize nutrition: Consume > 50% meals/supplements Goal: Promote skin healing Outcome: Progressing Flowsheets (Taken 12/18/20241226) Promote skin healing: Turn/reposition every 2 hours/use positioning/transfer devices Assess skin/pad under line(s)/device(s) The patient's goals for the shift include The clinical goals for the shift include VS stability and safety throughout shift Problem: Pain - Adult Goal: Verbalizes/displays adequate comfort level or baseline comfort level Outcome: Progressing Problem: Safety - Adult Goal: Free from fall injury Outcome: Progressing Problem: Discharge Planning Goal: Discharge to home or other facility with appropriate resources Outcome: Progressing Problem: Chronic Conditions and Co-morbidities Goal: Patient's chronic conditions and co-morbidity symptoms are monitored and maintained or improved Outcome: Progressing Problem: Nutrition Goal: Nutrient intake appropriate for maintaining nutritional needs Outcome: Progressing Problem: Skin Goal: Decreased wound size/increased tissue granulation at next dressing change Outcome: Progressing Flowsheets (Taken 12/17/2024 9775) Decreased wound size/increased tissue granulation at next dressing change: Promote sleep for wound healing Protective dressings over bony prominences Goal: Participates in plan/prevention/treatment measures Outcome: Progressing Flowsheets (Taken 12/16/2024 2351) Participates in plan/prevention/treatment measures: Discuss with provider PT/OT consult Elevate heels Goal: Prevent/manage excess moisture Outcome: Progressing Flowsheets (Taken 12/16/20242350) Prevent/manage excess moisture: Cleanse incontinence/protect with barrier cream Follow provider orders for dressing changes Moisturize dry skin Monitor for/manage infection if present Goal: Prevent/minimize sheer/friction injuries Outcome: Progressing Flowsheets (Taken 12/16/20242350) Prevent/minimize sheer/friction injuries: HOB 30 degrees or less Use pull sheet Complete micro-shifts as needed if patient unable. Adjust patient position to relieve pressure points, not a full turn Goal: Promote/optimize nutrition Outcome: Progressing Flowsheets (Taken 12/16/20242350) Promote/optimize nutrition: Assist with feeding Monitor/record intake including meals Consume > 50% meals/supplements Offer water/supplements/favorite foods Goal: Promote skin healing Outcome: Progressing Flowsheets (Taken 12/16/20242350) Promote skin healing: Assess skin/pad under line(s)/device(s) Protective dressings over bony prominences The patient's goals for the shift include The clinical goals for the shift include patient will remain safe Problem: Pain - Adult Goal: Verbalizes/displays adequate comfort level or baseline comfort level Outcome: Progressing Problem: Safety - Adult Goal: Free from fall injury Outcome: Progressing Problem: Discharge Planning Goal: Discharge to home or other facility with appropriate resources Outcome: Progressing Problem: Chronic Conditions and Co-morbidities Goal: Patient's chronic conditions and co-morbidity symptoms are monitored and maintained or improved Outcome: Progressing Problem: Nutrition Goal: Nutrient intake appropriate for maintaining nutritional needs Outcome: Progressing Problem: Skin Goal: Decreased wound size/increased tissue granulation at next dressing change Outcome: Progressing Goal: Participates in plan/prevention/treatment measures Outcome: Progressing Goal: Prevent/manage excess moisture Outcome: Progressing Goal: Prevent/minimize sheer/friction injuries Outcome: Progressing Goal: Promote/optimize nutrition Outcome: Progressing Goal: Promote skin healing Outcome: Progressing The patient's goals for the shift include The clinical goals for the shift include pain control throughout shift Problem: Pain - Adult Goal: Verbalizes/displays adequate comfort level or baseline comfort level Outcome: Progressing Problem: Safety - Adult Goal: Free from fall injury Outcome: Progressing Problem: Discharge Planning Goal: Discharge to home or other facility with appropriate resources Outcome: Progressing Problem: Chronic Conditions and Co-morbidities Goal: Patient's chronic conditions and co-morbidity symptoms are monitored and maintained or improved Outcome: Progressing Problem: Nutrition Goal: Nutrient intake appropriate for maintaining nutritional needs Outcome: Progressing Problem: Skin Goal: Decreased wound size/increased tissue granulation at next dressing change Outcome: Progressing Flowsheets (Taken 12/16/20242350) Decreased wound size/increased tissue granulation at next dressing change: Promote sleep for wound healing Protective dressings over bony prominences Goal: Participates in plan/prevention/treatment measures Outcome: Progressing Flowsheets (Taken 12/16/20242350) Participates in plan/prevention/treatment measures: Discuss with provider PT/OT consult Elevate heels Goal: Prevent/manage excess moisture Outcome: Progressing Flowsheets (Taken 12/16/20242350) Prevent/manage excess moisture: Cleanse incontinence/protect with barrier cream Follow provider orders for dressing changes Moisturize dry skin Monitor for/manage infection if present Goal: Prevent/minimize sheer/friction injuries Outcome: Progressing Flowsheets (Taken 12/16/20242350) Prevent/minimize sheer/friction injuries: HOB 30 degrees or less Use pull sheet Complete micro-shifts as needed if patient unable. Adjust patient position to relieve pressure points, not a full turn Goal: Promote/optimize nutrition Outcome: Progressing Flowsheets (Taken 12/16/20242350) Promote/optimize nutrition: Assist with feeding Monitor/record intake including meals Consume > 50% meals/supplements Offer water/supplements/favorite foods Goal: Promote skin healing Outcome: Progressing Flowsheets (Taken 12/16/20242350) Promote skin healing: Assess skin/pad under line(s)/device(s) Protective dressings over bony prominences The patient's goals for the shift include manage pain The clinical goals for the shift include pt will remain free of falls, safe, HDS and pain will be managed per protocol. Problem: Pain - Adult Goal: Verbalizes/displays adequate comfort level or baseline comfort level Outcome: Progressing Problem: Safety - Adult Goal: Free from fall injury Outcome: Progressing Problem: Discharge Planning Goal: Discharge to home or other facility with appropriate resources Outcome: Progressing Problem: Chronic Conditions and Co-morbidities Goal: Patient's chronic conditions and co-morbidity symptoms are monitored and maintained or improved Outcome: Progressing Problem: Nutrition Goal: Nutrient intake appropriate for maintaining nutritional needs Outcome: Progressing Problem: Skin Goal: Decreased wound size/increased tissue granulation at next dressing change Outcome: Progressing Goal: Participates in plan/prevention/treatment measures Outcome: Progressing Goal: Prevent/manage excess moisture Outcome: Progressing Goal: Prevent/minimize sheer/friction injuries Outcome: Progressing Goal: Promote/optimize nutrition Outcome: Progressing Goal: Promote skin healing Outcome: Progressing Problem: Pain - Adult Goal: Verbalizes/displays adequate comfort level or baseline comfort level Outcome: Progressing Problem: Safety - Adult Goal: Free from fall injury Outcome: Progressing Problem: Discharge Planning Goal: Discharge to home or other facility with appropriate resources Outcome: Progressing Problem: Chronic Conditions and Co-morbidities Goal: Patient's chronic conditions and co-morbidity symptoms are monitored and maintained or improved Outcome: Progressing The patient's goals for the shift include manage pain The clinical goals for the shift include pt will remain free from falls and HDS until EOS. Problem: Pain - Adult Goal: Verbalizes/displays adequate comfort level or baseline comfort level Outcome: Progressing Problem: Safety - Adult Goal: Free from fall injury Outcome: Progressing Problem: Discharge Planning Goal: Discharge to home or other facility with appropriate resources Outcome: Progressing Problem: Chronic Conditions and Co-morbidities Goal: Patient's chronic conditions and co-morbidity symptoms are monitored and maintained or improved Outcome: Progressing Problem: Nutrition Goal: Nutrient intake appropriate for maintaining nutritional needs Outcome: Progressing Problem: Skin Goal: Decreased wound size/increased tissue granulation at next dressing change Outcome: Progressing Flowsheets (Taken 12/15/2024 1037) Decreased wound size/increased tissue granulation at next dressing change: Promote sleep for wound healing Utilize specialty bed per algorithm Protective dressings over bony prominences Goal: Participates in plan/prevention/treatment measures 12/15/2024 1037 by Cristiana Simon RN Flowsheets (Taken 12/15/2024 1037) Participates in plan/prevention/treatment measures: Discuss with provider PT/OT consult Increase activity/out of bed for meals Elevate heels 12/15/2024 1037 by Cristiana Simon RN Outcome: Progressing Flowsheets (Taken 12/15/2024 1037) Participates in plan/prevention/treatment measures: Discuss with provider PT/OT consult Increase activity/out of bed for meals Elevate heels Goal: Prevent/manage excess moisture 12/15/2024 1037 by Cristiana Simon RN Flowsheets (Taken 12/15/2024 1037) Prevent/manage excess moisture: Cleanse incontinence/protect with barrier cream Moisturize dry skin Use wicking fabric (obtain order) Follow provider orders for dressing changes Monitor for/manage infection if present 12/15/2024 1037 by Cristiana Simon RN Outcome: Progressing Flowsheets (Taken 12/15/2024 1037) Prevent/manage excess moisture: Cleanse incontinence/protect with barrier cream Moisturize dry skin Use wicking fabric (obtain order) Follow provider orders for dressing changes Monitor for/manage infection if present Goal: Prevent/minimize sheer/friction injuries 12/15/2024 1037 by Cristiana Simon RN Flowsheets (Taken 12/15/2024 1037) Prevent/minimize sheer/friction injuries: Complete micro-shifts as needed if patient unable. Adjust patient position to relieve pressure points, not a full turn HOB 30 degrees or less Increase activity/out of bed for meals Turn/reposition every 2 hours/use positioning/transfer devices Use pull sheet Utilize specialty bed per algorithm 12/15/2024 1037 by Cristiana Simon RN Outcome: Progressing Flowsheets (Taken 12/15/2024 1037) Prevent/minimize sheer/friction injuries: Complete micro-shifts as needed if patient unable. Adjust patient position to relieve pressure points, not a full turn HOB 30 degrees or less Increase activity/out of bed for meals Turn/reposition every 2 hours/use positioning/transfer devices Use pull sheet Utilize specialty bed per algorithm Goal: Promote/optimize nutrition 12/15/2024 1037 by Cristiana Simon RN Flowsheets (Taken 12/15/2024 1037) Promote/optimize nutrition: Assist with feeding Discuss with provider if NPO > 2 days Offer water/supplements/favorite foods Consume > 50% meals/supplements Monitor/record intake including meals Reassess MST if line server not consulted 12/15/2024 1037 by Cristiana Simon RN Outcome: Progressing Flowsheets (Taken 12/15/2024 1037) Promote/optimize nutrition: Assist with feeding Discuss with provider if NPO > 2 days Offer water/supplements/favorite foods Consume > 50% meals/supplements Monitor/record intake including meals Reassess MST if line server not consulted Goal: Promote skin healing 12/15/2024 1037 by Cristiana Simon RN Flowsheets (Taken 12/15/2024 1037) Promote skin healing: Assess skin/pad under line(s)/device(s) Ensure correct size (line/device) and apply per day care teacher instructions Protective dressings over bony prominences Rotate device position/do not position patient on device Turn/reposition every 2 hours/use positioning/transfer devices 12/15/2024 1037 by Cristiana Simon RN Outcome: Progressing Flowsheets (Taken 12/15/2024 1037) Promote skin healing: Assess skin/pad under line(s)/device(s) Ensure correct size (line/device) and apply per day care teacher instructions Protective dressings over bony prominences Rotate device position/do not position patient on device Turn/reposition every 2 hours/use positioning/transfer devices Problem: Pain - Adult Goal: Verbalizes/displays adequate comfort level or baseline comfort level Outcome: Progressing Problem: Safety - Adult Goal: Free from fall injury Outcome: Progressing Problem: Discharge Planning Goal: Discharge to home or other facility with appropriate resources Outcome: Progressing Problem: Chronic Conditions and Co-morbidities Goal: Patient's chronic conditions and co-morbidity symptoms are monitored and maintained or improved Outcome: Progressing Problem: Nutrition Goal: Nutrient intake appropriate for maintaining nutritional needs Outcome: Progressing The patient's goals for the shift include The clinical goals for the shift include pt will have improve GI functions Problem: Discharge Planning Goal: Discharge to home or other facility with appropriate resources 12/14/2024 1810 by Mario Sr RN Outcome: Progressing The patient's goals for the shift include The clinical goals for the shift include pt will have improve GI functions Problem: Chronic Conditions and Co-morbidities Goal: Patient's chronic conditions and co-morbidity symptoms are monitored and maintained or improved Outcome: Progressing Problem: Pain - Adult Goal: Verbalizes/displays adequate comfort level or baseline comfort level Outcome: Progressing Problem: Nutrition Goal: Nutrient intake appropriate for maintaining nutritional needs Outcome: Progressing Problem: Skin Goal: Promote skin healing Outcome: Progressing Problem: Skin Goal: Prevent/manage excess moisture Outcome: Progressing Problem: Pain - Adult Goal: Verbalizes/displays adequate comfort level or baseline comfort level Outcome: Progressing Problem: Safety - Adult Goal: Free from fall injury Outcome: Progressing Problem: Discharge Planning Goal: Discharge to home or other facility with appropriate resources Outcome: Progressing Problem: Chronic Conditions and Co-morbidities Goal: Patient's chronic conditions and co-morbidity symptoms are monitored and maintained or improved Outcome: Progressing Problem: Nutrition Goal: Nutrient intake appropriate for maintaining nutritional needs Outcome: Progressing Problem: Skin Goal: Decreased wound size/increased tissue granulation at next dressing change Outcome: Progressing Goal: Participates in plan/prevention/treatment measures Outcome: Progressing Goal: Prevent/manage excess moisture Outcome: Progressing Goal: Prevent/minimize sheer/friction injuries Outcome: Progressing Goal: Promote/optimize nutrition Outcome: Progressing Goal: Promote skin healing Outcome: Progressing The clinical goals for the shift include patient will have a decrease in pain throughout the shift The patient's goals for the shift include The clinical goals for the shift include Pain mgnt, safety promo, education Over the shift, the patient did not make progress toward the following goals. Barriers to progression include . Recommendations to address these barriers include Problem: Pain - Adult Goal: Verbalizes/displays adequate comfort level or baseline comfort level Outcome: Progressing Problem: Safety - Adult Goal: Free from fall injury Outcome: Progressing Problem: Discharge Planning Goal: Discharge to home or other facility with appropriate resources Outcome: Progressing Problem: Chronic Conditions and Co-morbidities Goal: Patient's chronic conditions and co-morbidity symptoms are monitored and maintained or improved Outcome: Progressing Problem: Nutrition Goal: Nutrient intake appropriate for maintaining nutritional needs Outcome: Progressing Problem: Skin Goal: Decreased wound size/increased tissue granulation at next dressing change Outcome: Progressing Goal: Participates in plan/prevention/treatment measures Outcome: Progressing Goal: Prevent/manage excess moisture Outcome: Progressing Goal: Prevent/minimize sheer/friction injuries Outcome: Progressing Goal: Promote/optimize nutrition Outcome: Progressing Goal: Promote skin healing Outcome: Progressing . The patient's goals for the shift include The clinical goals for the shift include Pain mgnt, safety promotion, education Over the shift, the patient did not make progress toward the following goals. Barriers to progression include . Recommendations to address these barriers include Problem: Pain - Adult Goal: Verbalizes/displays adequate comfort level or baseline comfort level Outcome: Progressing Problem: Safety - Adult Goal: Free from fall injury Outcome: Progressing Problem: Discharge Planning Goal: Discharge to home or other facility with appropriate resources Outcome: Progressing Problem: Chronic Conditions and Co-morbidities Goal: Patient's chronic conditions and co-morbidity symptoms are monitored and maintained or improved Outcome: Progressing Problem: Nutrition Goal: Nutrient intake appropriate for maintaining nutritional needs Outcome: Progressing Problem: Skin Goal: Decreased wound size/increased tissue granulation at next dressing change Outcome: Progressing Goal: Participates in plan/prevention/treatment measures Outcome: Progressing Goal: Prevent/manage excess moisture Outcome: Progressing Goal: Prevent/minimize sheer/friction injuries Outcome: Progressing Goal: Promote/optimize nutrition Outcome: Progressing Goal: Promote skin healing Outcome: Progressing . The patient's goals for the shift include The clinical goals for the shift include pain management Over the shift, the patient did not make progress toward the following goals. Barriers to progression include . Recommendations to address these barriers include Problem: Pain - Adult Goal: Verbalizes/displays adequate comfort level or baseline comfort level Outcome: Progressing Problem: Safety - Adult Goal: Free from fall injury Outcome: Progressing Problem: Discharge Planning Goal: Discharge to home or other facility with appropriate resources Outcome: Progressing Problem: Chronic Conditions and Co-morbidities Goal: Patient's chronic conditions and co-morbidity symptoms are monitored and maintained or improved Outcome: Progressing Problem: Nutrition Goal: Nutrient intake appropriate for maintaining nutritional needs Outcome: Progressing Problem: Skin Goal: Decreased wound size/increased tissue granulation at next dressing change Outcome: Progressing Goal: Participates in plan/prevention/treatment measures Outcome: Progressing Goal: Prevent/manage excess moisture Outcome: Progressing Goal: Prevent/minimize sheer/friction injuries Outcome: Progressing Goal: Promote/optimize nutrition Outcome: Progressing Goal: Promote skin healing Outcome: Progressing . The clinical goals for the shift include pain management Problem: Pain - Adult Goal: Verbalizes/displays adequate comfort level or baseline comfort level Outcome: Progressing Problem: Safety - Adult Goal: Free from fall injury Outcome: Progressing Problem: Chronic Conditions and Co-morbidities Goal: Patient's chronic conditions and co-morbidity symptoms are monitored and maintained or improved Outcome: Progressing Problem: Nutrition Goal: Nutrient intake appropriate for maintaining nutritional needs Outcome: Progressing Problem: Skin Goal: Decreased wound size/increased tissue granulation at next dressing change Outcome: Progressing The patient's goals for the shift include The clinical goals for the shift include manage pain and nausea throughout the shift Problem: Skin Goal: Decreased wound size/increased tissue granulation at next dressing change Outcome: Progressing Kevan La is a 49 y.o. 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 He was to have his first oncology appointment 12/09 but sent from SNF for lethargy, increased drainage and odor and an outside CT noted a fluid collection in the left thigh under the necrotic tumor. Initial SCC diagnosis was made on 11/29 with plans to start cemiplimab chemotherapy on 12/09. Started on vancomycin and Zosyn for possible wound infection, ID consulted and continued Ceftriaxone 2 gm IV daily with 500mg metronidazole po tid (For odor). Blood cultures ngtd. Surg Onc believe Pt's worsening drainage and growth of the ulcer is related to cancer progression rather than an infection, recommend systemic therapy before oncological resection. 12/13 MRI pelvis with complex process combination of ulcerating mass superimposed on hidradenitis suppurativa of the left gluteal skin and thigh with associated cellulitis. It is difficult to clearly separate what in the skin is hidradenitis suppurativa and malignancy. Surg onc still recommended no inpatient surgery, will fu outpatient. Problem: Pain - Adult Goal: Verbalizes/displays adequate comfort level or baseline comfort level Outcome: Progressing Problem: Safety - Adult Goal: Free from fall injury Outcome: Progressing Problem: Discharge Planning Goal: Discharge to home or other facility with appropriate resources Outcome: Progressing Problem: Chronic Conditions and Co-morbidities Goal: Patient's chronic conditions and co-morbidity symptoms are monitored and maintained or improved Outcome: Progressing Problem: Nutrition Goal: Nutrient intake appropriate for maintaining nutritional needs Outcome: Progressing Problem: Skin Goal: Decreased wound size/increased tissue granulation at next dressing change Outcome: Progressing Goal: Participates in plan/prevention/treatment measures Outcome: Progressing Goal: Prevent/manage excess moisture Outcome: Progressing Goal: Prevent/minimize sheer/friction injuries Outcome: Progressing Goal: Promote/optimize nutrition Outcome: Progressing Goal: Promote skin healing Outcome: Progressing The clinical goals for the shift include patient will rate pain <5/10 by 12/08/24 1500 Patient with low Bps. Team aware. Will order a bolus. Lost IV access. Awaiting ultrasound IV team to come due to unsuccessful attempt. Having nausea and pain. Received antiemetics and prn pain meds. RN asked team for wound dressing change. Still awaiting. Patient remained safe this shift. MRI checklist done. Problem: Pain - Adult Goal: Verbalizes/displays adequate comfort level or baseline comfort level Outcome: Progressing Problem: Safety - Adult Goal: Free from fall injury Outcome: Progressing Problem: Discharge Planning Goal: Discharge to home or other facility with appropriate resources Outcome: Progressing Problem: Chronic Conditions and Co-morbidities Goal: Patient's chronic conditions and co-morbidity symptoms are monitored and maintained or improved Outcome: Progressing Problem: Nutrition Goal: Nutrient intake appropriate for maintaining nutritional needs Outcome: Progressing Problem: Skin Goal: Decreased wound size/increased tissue granulation at next dressing change Outcome: Progressing Goal: Participates in plan/prevention/treatment measures Outcome: Progressing Goal: Prevent/manage excess moisture Outcome: Progressing Goal: Prevent/minimize sheer/friction injuries Outcome: Progressing Goal: Promote/optimize nutrition Outcome: Progressing Goal: Promote skin healing Outcome: Progressing The patient's goals for the shift include rest and comfort The clinical goals for the shift include remain safe without injuty Over the shift, the patient did not make progress toward the following goals. Barriers to progression include pain. Recommendations to address these barriers include prn meds. Kevan La is a 49 y.o. male with refractory hidradenitis supprativa (HS) not responding to povorcitinib (RCT candidate), apremilast, isotretinoin, adalimumab, infliximab, moxifloxacin/metronidazole, minocyclin, clindamycin, rifampin, augmentin and doxycycline, and invasive SCC who is returning to [facility] 11/10/2024 as a transfer from [facility] regarding gluteal fluid collection. Notably, the pt was admitted at [facility] 11/10-11/27 after her arrived from [facility] and CT revealed large ulcerative wound at the left buttock which was biopsied 11/12 and 11/15 and revealed invasive SCC.- pt has been following with Dr. Jiang with plan for Cemipilimab 12/13. Wound Cx grew proteus mirabilis susceptible to Augmentin. Blood cultures were sterile. Pt was initially on Vanc and Zosyn, then deescalated to PO Augmentin. Given concern for worsening wound infection on 11/22, pt restarted on zosyn. Was discharged to [facility] on Augmentin for one month. Today he presents as transfer from [facility] (where he was brought to from [facility]) with reports that his wound looks worse. States for the last week he has noticed increased odor and discharge (unclear what color). Endorses taking his Augmentin. Denies any worsening pain. States during this time he has felt fatigued and endorses nausea and NBNB vomiting. Denies any fever, chills, or any other symptoms. States his appetite has been good. Pt states he feels his wound looks worse than usual. Objective: Vitals: 12/07/24 1658 BP: 95/63 Pulse: 64 Resp: 16 Temp: 36.7 C (98.1 F) SpO2: 98% Exam: General: Resting in bed on his rigth side, no acute distress. HEENT: Normocephalic and atraumatic. EOMI, sclera non-icteric Cardiovascular: RRR, no r/m/g Pulmonary: Lungs clear to auscultation bilaterally. No wheezes/ rhonchi/ rales Extremities: No LE edema. Skin: Left buttock large open wound with clean borders, no purulent discharge or erythema around borders. L thigh lesion is with surrounding erythema and some serous drainage. Neurologic: CN II-XII grossly intact. Moving extremities spontaneously Psych: Pleasant. Appropriate mood and affect CT pelvis w IV contrast Result Date: 12/06/2024 Patient Name: KEVAN LA : 1975 Exam Date/Time: 12/06/2024 12:46 Procedure: CT PELVIS W IV CONTRAST Ordering Provider: HOLLINS MICHAEL Reason For Exam: large left hip and upper thigh wounds, concern for possible osteomyelitis Examination: CT pelvis Indication: large left hip and upper thigh wounds, concern for possible osteomyelitis Technique: Axial CT images of the pelvis were obtained at 1 mm intervals following intravenous contrast administration of 75 mL Isovue-370. Sagittal and coronal reconstructions were reviewed as well. Dose reduction was employed with automatic exposure control. Findings: Large fluid collection present within the proximal left upper thigh measuring 8.5 x 8.4 cm in axial dimension and 16.5 cm in length. There is a large overlying wound with cutaneous thickening and subcutaneous edema. There is at least moderate joint space loss of the bilateral sacroiliac joints. Probable few small bladder diverticula present, posteriorly. Impression: Large wound along the proximal posterior thigh with large abscess within the posterior compartment of the left upper thigh. There is also presumed cellulitis. No obvious acute cortical erosion. Please note, the marrow is not assessed on a CT examination. Report Dictated on Electronically Signed By: Tess Carter MD Electronically Signed Date/Time: 12/06/2024 1:29 PM EDT Assessment/Plan: Kevan La is a 49 y.o. male with refractory hidradenitis supprativa (HS) and invasive SCC who is returning to [facility] 11/10/2024 as a transfer from [facility] regarding gluteal wound with worsening odor and drainage. Will begin Vanc/Zosyn for possible infection and consult ACS for possible I&D. #Invasive SCC, biopsy diagnosed 11/15/24 - Awaiting outpatient PET CT w/ LN bx -Plan was for first round cemiplimab 12/13, and upcoming appointment with supportive onc 12/17 -Pt Oncologist Dr. Jiang- pls inform in AM - Supportive Onc consulted and they recommended: fentanyl patch, 20mg oxycodone q3h, and 1.0 mg IV dilaudid q2h PRN for BT pain. Will formally see pt in AM. #Gluteal abscess s/p I&D 10/13 #Refractory hidradenitis suppurativa ::Patient with history of refractory HS having failed multiple modalities, now c/b gluteal abscess which he was admitted for 3 weeks ago s/p I&D, BCx with marta powers s/p Unasyn complete 10/28/2024 presenting to OSH with initial c/f sepsis found to have worsening gluteal abscess ::CT 11/08/2024: Large ulcerative wound at the left buttock with an adjacent 14.9 cm enhancing mass involving the left gluteal muscles and overlying subcutaneous tissue, larger than CT in 08/2024 ::CT 12/06: Large fluid collection present within the proximal left upper thigh measuring 8.5 x 8.4 cm in axial dimension and 16.5 cm in length. There is a large overlying wound with cutaneous thickening and subcutaneous edema. ::Pt was d/stephanie 11/27 with one month of Augmentin Plan: - Begin Vanc/Zosyn 12/07- - Hold Augmentin and PO iron iso likely active infection - Follow BCx and Wound Cx ,Admission CBC, CMP, Mag, ESR, CRP, repeat BCx - Continue Topical Clindamycin BID - Wound care consult - Consult to ACS for possible repeat I&D - Consult Derm in AM regarding bimekizumab #MISC -Hold gabapentin pending lab results given PARUL during last amdisison -Hold ferrous gluconate given possible infection DVT prophylaxis: Lovenox (will hold pending ACS consult) Code status: FULL CODE NOK: Omkar La (brother, ) Problem: Skin Goal: Decreased wound size/increased tissue granulation at next dressing change Outcome: Progressing Flowsheets (Taken 12/07/20241641) Decreased wound size/increased tissue granulation at next dressing change: Promote sleep for wound healing Goal: Participates in plan/prevention/treatment measures Outcome: Progressing Flowsheets (Taken 12/07/20241641) Participates in plan/prevention/treatment measures: Elevate heels Discuss with provider PT/OT consult Goal: Prevent/manage excess moisture Outcome: Progressing Flowsheets (Taken 12/07/2024 164) Prevent/manage excess moisture: Cleanse incontinence/protect with barrier cream Monitor for/manage infection if present Goal: Prevent/minimize sheer/friction injuries Outcome: Progressing Flowsheets (Taken 12/07/20241641) Prevent/minimize sheer/friction injuries: HOB 30 degrees or less Turn/reposition every 2 hours/use positioning/transfer devices Use pull sheet Goal: Promote/optimize nutrition Outcome: Progressing Flowsheets (Taken 12/07/2024 1642) Promote/optimize nutrition: Consume > 50% meals/supplements Goal: Promote skin healing Outcome: Progressing Flowsheets (Taken 12/07/2024 1642) Promote skin healing: Turn/reposition every 2 hours/use positioning/transfer devices Problem: Pain - Adult Goal: Verbalizes/displays adequate comfort level or baseline comfort level Outcome: Progressing Problem: Safety - Adult Goal: Free from fall injury Outcome: Progressing Problem: Discharge Planning Goal: Discharge to home or other facility with appropriate resources Outcome: Progressing Problem: Chronic Conditions and Co-morbidities Goal: Patient's chronic conditions and co-morbidity symptoms are monitored and maintained or improved Outcome: Progressing Problem: Nutrition Goal: Nutrient intake appropriate for maintaining nutritional needs Outcome: Progressing The patient's goals for the shift include pain control The clinical goals for the shift include remain safe from injury documented in this encounter [facility] Work Phone: 12-18-2024 Consult note Formatting of th is note is different from the original. Images from the original note were not included. Wound Care Consult Visit Date: 12/18/2024 Patient Name: Kevan La Date of : 1975 Reason for Consult: reassess Left hip hydradenitis and mass Wound History: Patient with refractory hidradenitis supprativa (HS) and invasive SCC transferred for left gluteal lesion with worsening odor and drainage. Pertinent Labs: Albumin Date Value Ref Range Status 12/17/2024 3.3 (L) 3.4 - 5.0 g/dL Final 11/10/2024 2.9 (L) 3.4 - 5.0 g/dL Final Albumin % Date Value Ref Range Status 11/10/2024 16.4 % Final Wound Assessment: Wound 09/13/24 Other (comment) Buttock Left (Active) Wound Image 12/18/24 1506 Site Assessment Brown;Yellow;Sloughing 12/18/24 1506 Wound Length (cm) 2.4 cm 12/18/24 1506 Wound Width (cm) 2 cm 12/18/24 1506 Wound Surface Area (cm^2) 4.8 cm^2 12/18/24 1506 Wound Depth (cm) 3 cm 12/18/24 1506 Wound Volume (cm^3) 14.4 cm^3 12/18/24 1506 Wound Healing % -188 12/18/24 1506 Wound Bed Slough (%) 100 % 12/18/24 1506 Treatments Cleansed 12/18/24 1506 Drainage Description Foul odor 12/13/24 1228 Drainage Amount Moderate 12/18/24 1506 Dressing Gauze 12/13/24 1228 Dressing Changed Changed 12/08/242037 Dressing Status Clean;Dry 12/12/24 0014 Wound 10/10/24 Leg Left;Upper (Active) Wound Image 12/09/24 1253 Wound Length (cm) 7.5 cm 12/09/24 1253 Wound Width (cm) 5.5 cm 12/09/24 1253 Wound Surface Area (cm^2) 41.25 cm^2 12/09/24 1253 Wound Depth (cm) 2.9 cm 12/09/24 1253 Wound Volume (cm^3) 119.625 cm^3 12/09/24 1253 Wound Healing % 7 12/09/24 1253 State of Healing Non-healing 12/12/242027 Margins Well-defined edges 12/11/24 0900 Drainage Description Foul odor;Bourne 12/18/24 0854 Drainage Amount Scant 12/18/24 0854 Dressing Open to air 12/18/24 0854 Dressing Changed Reinforced 12/17/24 1532 Dressing Status Other (Comment) 12/18/24 0854 Wound 10/13/24 Incision Buttock Left (Active) Margins Poorly defined 12/18/24 0854 Drainage Description Bourne 12/18/24 0854 Drainage Amount Moderate 12/18/24 0854 Dressing ABD;Kerlix/rolled gauze;Moist to dry;Packed 12/18/24 0854 Dressing Changed Changed 12/18/24 1023 Dressing Status Clean;Dry;Occlusive 12/18/24 0854 Wound 10/22/24 Buttock Left (Active) Wound Image 12/18/24 1503 Wound Length (cm) 8 cm 12/18/24 1503 Wound Width (cm) 5 cm 12/18/24 1503 Wound Surface Area (cm^2) 40 cm^2 12/18/24 1503 Wound Depth (cm) 3.5 cm 12/18/24 1503 Wound Volume (cm^3) 140 cm^3 12/18/24 1503 State of Healing Non-healing 12/18/24 1503 Drainage Description Foul odor;Bourne;Yellow;Serous 12/18/24 1503 Drainage Amount Moderate 12/18/24 1503 Dressing Kerlix/rolled gauze;ABD 12/18/24 1503 Dressing Changed Changed 12/18/24 1503 Dressing Status Clean 12/18/24 1503 Wound 12/09/24 Pressure Injury Buttock Right (Active) Wound Image 12/18/24 1457 Site Assessment Non-blanchable erythema;Yellow;Sloughing 12/18/24 1457 Leda-Wound Assessment Blanchable erythema 12/18/24 1457 Pressure Injury Stage U 12/18/24 1457 Wound Length (cm) 2 cm 12/18/24 1457 Wound Width (cm) 1.8 cm 12/18/24 1457 Wound Surface Area (cm^2) 3.6 cm^2 12/18/24 1457 Margins Poorly defined 12/18/24 0854 Drainage Description Clear 12/18/24 1457 Drainage Amount Scant 12/18/24 1457 Dressing Silicone border dressing 12/18/24 1457 Dressing Changed Changed 12/18/24 1457 Dressing Status Clean 12/18/24 1457 Wound Team Summary Assessment: Continue current skin treatment Cleanse the proximal open wound with normal saline Pack with Kerlix moistened with Vashe Cover with ABD dressings Cut a diaper and tape open end were cut Place as an outer dressing over ABDs. Tape into place leaving edge by distal wound loose without tape per patient request. Place waffle mattress on bed surface ( Patient declined d/t decreased mobility) Recommendation for right hip Cleanse with normal saline Cover with mepilex sacral dressing Encourage patient to turn to back every 2 hours Utilize chair pad under Right hip Wound Team Plan: Please review reassessment Carline Jenkins RN CWON 12/18/2024 3:28 PM Associated Order(s): Inpatient consult to Integrative Hem/Onc Inpatient consult to Integrative Hem/Onc Consult performed by: Cristiana Evans APRN-SENIOR DATABASE ENGINEER Consult ordered by: Mack Frias MD Reason For Consult Symptom management History Of Present Illness Kevan La is a 49 y.o. male with PMH of refractory hidradenitis supprativa (HS) and invasive SCC transferred for left gluteal lesion with worsening odor and drainage. Surgical oncology indicates no surgical intervention indicated at this time, recommend systemic therapy and discussion before oncologic resection. Integrative hematology/oncology consulted by [facility] oncology team for non-pharmacological symptom management of depression and pain. Pt resting in bed at time of exam, no family at bedside. Integrative hematology/oncology consult team introduced to pt. Non-pharmacological symptom management interventions reviewed, including: Reiki, meditation, mindfulness practices, guided imagery, as well as acupuncture, acupressure, and gentle bodywork. Pt declined integrative heme/onc services. Music therapy, art therapy, dental therapist and pet therapy offered to pt, pt declined; pt stated the sales and marketing coordinator has been following. Information obtained from chart review, discussion with patient/family, and discussion with primary team. Past Medical History He has no past medical history on file. Surgical History He has no past surgical history on file. Social History He reports that he quit smoking about 38 years ago. His smoking use included cigarettes. He started smoking about 14 months ago. He has a 1.2 pack-year smoking history. He has never used smokeless tobacco. He reports that he does not currently use alcohol. He reports that he does not currently use drugs. Family History No family history on file. Allergies Patient has no known allergies. Review of Systems Constitutional: Positive for fatigue. Musculoskeletal: Positive for myalgias. Psychiatric/Behavioral: Positive for dysphoric mood. Physical Exam Vitals and nursing note reviewed. Constitutional: General: He is not in acute distress. Appearance: Normal appearance. He is normal weight. He is ill-appearing. HENT: Head: Normocephalic and atraumatic. Nose: Nose normal. Mouth/Throat: Mouth: Mucous membranes are moist. Eyes: Extraocular Movements: Extraocular movements intact. Pupils: Pupils are equal, round, and reactive to light. Cardiovascular: Rate and Rhythm: Normal rate. Pulmonary: Effort: Pulmonary effort is normal. Abdominal: General: Abdomen is flat. Palpations: Abdomen is soft. Skin: General: Skin is warm and dry. Neurological: General: No focal deficit present. Mental Status: He is alert and oriented to person, place, and time. Mental status is at baseline. Psychiatric: Mood and Affect: Mood normal. Affect is flat. Behavior: Behavior normal. Last Recorded Vitals Blood pressure 95/58, pulse 70, temperature 37.3 C (99.1 F), temperature source Temporal, resp. rate 16, height 2.006 m (6' 6.98"), weight 89.4 kg (197 lb 1.5 oz), SpO2 96%. Relevant Results Scheduled medications acetaminophen, 975 mg, oral, q8h amoxicillin-pot clavulanate, 1 tablet, oral, q12h BERNADETTE chlorhexidine, , Topical, BID cholecalciferol, 1,000 Units, oral, Daily clindamycin, , Topical, BID enoxaparin, 40 mg, subcutaneous, Daily folic acid, 1 mg, oral, Daily gabapentin, 300 mg, oral, Nightly lidocaine, 0.1 mL, subcutaneous, Once melatonin, 3 mg, oral, Nightly methadone, 10 mg, oral, q8h polyethylene glycol, 17 g, oral, Daily sennosides-docusate sodium, 2 tablet, oral, BID tiZANidine, 2 mg, oral, TID varenicline tartrate, 1 mg, oral, BID Continuous medications PRN medications PRN medications: bisacodyl, HYDROmorphone, ondansetron OR ondansetron, oxyCODONE, oxygen, prochlorperazine OR prochlorperazine OR prochlorperazine Results for orders placed or performed during the hospital encounter of 12/07/24 (from the past 24 hours) CBC and Auto Differential Result Value Ref Range WBC 12.8 (H) 4.4 - 11.3 x10*3/uL nRBC 0.0 0.0 - 0.0 /100 WBCs RBC 3.28 (L) 4.50 - 5.90 x10*6/uL Hemoglobin 8.3 (L) 13.5 - 17.5 g/dL Hematocrit 27.8 (L) 41.0 - 52.0 % MCV 85 80 - 100 fL MCH 25.3 (L) 26.0 - 34.0 pg MCHC 29.9 (L) 32.0 - 36.0 g/dL RDW 17.3 (H) 11.5 - 14.5 % Platelets 660 (H) 150 - 450 x10*3/uL Neutrophils % 65.2 40.0 - 80.0 % Immature Granulocytes %, Automated 0.5 0.0 - 0.9 % Lymphocytes % 17.9 13.0 - 44.0 % Monocytes % 10.3 2.0 - 10.0 % Eosinophils % 5.6 0.0 - 6.0 % Basophils % 0.5 0.0 - 2.0 % Neutrophils Absolute 8.31 (H) 1.20 - 7.70 x10*3/uL Immature Granulocytes Absolute, Automated 0.07 0.00 - 0.70 x10*3/uL Lymphocytes Absolute 2.28 1.20 - 4.80 x10*3/uL Monocytes Absolute 1.31 (H) 0.10 - 1.00 x10*3/uL Eosinophils Absolute 0.72 (H) 0.00 - 0.70 x10*3/uL Basophils Absolute 0.07 0.00 - 0.10 x10*3/uL ECG 12 Lead Result Date: 12/16/2024 Normal sinus rhythm Normal ECG When compared with ECG of 12-DEC-2024 12:27, (unconfirmed) No significant change was found MR femur left w and wo IV contrast Result Date: 12/12/2024 Interpreted By: Kong Armijo and Lawrence Austen STUDY: MRI of the left femur with and without contrast dated 12/12/2024. INDICATION: Gluteal abscess/malignancy. Biopsy result of squamous cell carcinoma. History of chronic hidradenitis suppurativa. COMPARISON: None. Correlation is made with 12/06/2024 and 11/19/2024 CT examinations. ACCESSION NUMBER(S): [id number] ORDERING CLINICIAN: GIBSON MENDIOLA TECHNIQUE: Multiplanar multisequence MRI of the left femur was performed with and without intravenous gadolinium based contrast. FINDINGS: LIMITATIONS: Examination is limited due to the complexity of the soft tissue process discussed below. OSSEOUS STRUCTURES: No fracture or dislocation is evident. Bone marrow signal intensity is within normal limits. Degenerative changes of the knee with small joint effusion. ASSOCIATED SOFT TISSUES: Large heterogenous predominantly STIR hyperintense solid mass of the posterior left thigh soft tissues with diffuse peripheral enhancement and predominantly internal hypoenhancement measuring 7.5 X 15.0 x 10.0 cm. There are few foci of air within the mass without a discrete fluid collection. The mass is mostly within the subcutaneous soft tissues with involvement of the skin and large multifocal overlying skin ulceration. There is adjacent diffuse soft tissue edema and skin thickening. The anterior aspect of the mass appears to involve the inferior gluteus randell muscle and the posterior aspect of the hamstrings musculature with some intramuscular enhancement/edema and involvement of the proximal hamstring tendons. The greatest degree of muscle invasion appears to be into the gluteus randell muscle. There is thickening of the skin of the left gluteal region extending to the lateral thigh, and extending inferiorly into the thigh with multiple scattered foci of high T2 low T1 signal intensity within the skin such as seen at image 6, 17, 20, 27, 30, 35, and 41 of the axial plane some are also seen laterally such as at image 9 in the axial plane. Some of these foci have rim enhancement. There is inguinal lymphadenopathy with the largest lymph node measuring up to approximately 1.4 x 3.1 cm. There are iliac chain lymph nodes with the largest measuring up to approximately 1.8 x 2.9 cm. There is a prominent lymph node in the perirectal/ischioanal fat measuring a proximally 0.9 x 0.9 cm such is seen image 65 of the axial plane. There is a nodule adjacent to the sciatic neurovascular bundle seen at image 8 in the axial plane measuring a proximally 0.5 x 0.8 cm. Another nodule is seen adjacent to the posterior surface of the proximal femoral metadiaphysis seen image 40 of the axial plane measuring 0.8 x 1.3 cm. Additional abnormal appearing lymph nodes adjacent to the left sciatic neurovascular bundle adjacent to the greater sciatic foramen and posterior to the mid femur. Mild feathery increased T2 signal intensity is seen in the adductor musculature. Reticular increased T2 signal intensity is seen in the subcutaneous tissues with reticular post-contrast enhancement. The sciatic neurovascular bundle appears to be spared at this time. Multiple outpouchings of the posterior urinary bladder, partially visualized and likely presenting diverticuli. 1. Complex process involving the soft tissues of the posterior proximal thigh most compatible with a combination of large ulcerating mass (Marjolin's ulcer) centered in the subcutaneous tissues with underlying involvement of at least the gluteus randell and posterior aspects of the proximal hamstrings muscle/tendons superimposed on hidradenitis suppurativa of the left gluteal skin and thigh with associated cellulitis. It is difficult to clearly separate what in the skin is hidradenitis suppurativa and malignancy due to the invasive nature of the mass. Foci of gas are seen within the mass which could be related to open nature of process, recent intervention, and/or infection of the mass. 2. Inguinal, internal iliac chain, perirectal/ischioanal lymphadenopathy and prominent lymph node along the sciatic neurovascular bundle. This may represent reactive and/or malignant lymphadenopathy. Small nodule along the posterior proximal surface of the femoral metadiaphysis may represent an additional lymph node versus a satellite nodule of malignancy. 3. Nonspecific edema in the adductor musculature, possibly reactive in nature. MACRO: None Signed by: Kong Armijo 12/12/2024 1:33 PM Dictation workstation: [id number] MR femur left wo IV contrast Result Date: 12/12/2024 Interpreted By: Kong Armijo and Lawrence Austen STUDY: MRI of the left femur with and without contrast dated 12/10/2024. 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 History of chronic hidradenitis suppurativa. COMPARISON: Correlation is made with 12/06/2024 and 11/19/2024 CT examinations. ACCESSION NUMBER(S): [id number] ORDERING CLINICIAN: TOYA RUBIO TECHNIQUE: Multiplanar multisequence MRI of the left femur was performed with and without intravenous gadolinium based contrast. FINDINGS: No images were obtained as the patient was unable to cooperate for the exam. No images were obtained as the patient was unable to cooperate for the exam. MACRO: None Signed by: Kong Armijo 12/12/2024 1:18 PM Dictation workstation: [id number] CT pelvis w IV contrast Result Date: 12/06/2024 Patient Name: KEVAN LA : 1975 [facility]#: [id number] Exam Date/Time: 12/06/2024 12:46 Procedure: CT PELVIS W IV CONTRAST Ordering Provider: HOLLINS MICHAEL Reason For Exam: large left hip and upper thigh wounds, concern for possible osteomyelitis Examination: CT pelvis Indication: large left hip and upper thigh wounds, concern for possible osteomyelitis Technique: Axial CT images of the pelvis were obtained at 1 mm intervals following intravenous contrast administration of 75 mL Isovue-370. Sagittal and coronal reconstructions were reviewed as well. Dose reduction was employed with automatic exposure control. Findings: Large fluid collection present within the proximal left upper thigh measuring 8.5 x 8.4 cm in axial dimension and 16.5 cm in length. There is a large overlying wound with cutaneous thickening and subcutaneous edema. There is at least moderate joint space loss of the bilateral sacroiliac joints. Probable few small bladder diverticula present, posteriorly. Impression: Large wound along the proximal posterior thigh with large abscess within the posterior compartment of the left upper thigh. There is also presumed cellulitis. No obvious acute cortical erosion. Please note, the marrow is not assessed on a CT examination. Report Dictated on Electronically Signed By: Tess Carter MD Electronically Signed Date/Time: 12/06/2024 1:[address] chest abdomen pelvis w IV contrast Result Date: 11/19/2024 Interpreted By: Ravin Hyatt and Omar Mahmoud STUDY: CT CHEST ABDOMEN PELVIS W IV CONTRAST; 11/19/2024 2:43 pm INDICATION: Signs/Symptoms:new dx of invasive SCC, eval for mets. Per EMR: Patient with history of hydradenitis suppurativa with chronic left gluteal wound and recent biopsy positive for well-differentiated invasive squamous cell carcinoma. COMPARISON: CT pelvis 11/08/2024. ACCESSION NUMBER(S): [id number] ORDERING CLINICIAN: CLAUDIO PLUNKETT TECHNIQUE: CT of the chest, abdomen, and pelvis was performed. Contiguous axial images were obtained at 3 mm slice thickness through the chest, abdomen and pelvis. Coronal and sagittal reconstructions at 3 mm slice thickness were performed. 90 ML of Omnipaque 350 was administered intravenously without immediate complication. FINDINGS: CHEST: LUNG/PLEURA/LARGE AIRWAYS: Fvmo-kz-sfhyreae upper lobe predominant centrilobular and paraseptal emphysema. Right basilar atelectasis/scarring. There is a 4 mm pulmonary nodule within the left upper lobe (series 301, image 17). There is no pneumothorax. There is no pleural effusion. VESSELS: Aorta and pulmonary arteries are normal caliber. No atherosclerotic changes of the aorta are identified. HEART: The heart is normal in size. There is no pericardial effusion. MEDIASTINUM AND DAREK: No mediastinal, hilar or axillary lymphadenopathy is present. The esophagus is unremarkable. CHEST WALL AND LOWER NECK: The soft tissues of the chest wall demonstrate no gross abnormality. The visualized thyroid gland appears within normal limits. ABDOMEN: LIVER: The liver measures 19.8 cm in craniocaudal dimension. There are no focal liver lesions. BILE DUCTS: The intrahepatic and extrahepatic ducts are not dilated. GALLBLADDER: The gallbladder is nondistended and without evidence of radiopaque stones. PANCREAS: The pancreas appears unremarkable without evidence of ductal dilatation or masses. SPLEEN: The spleen is normal in size without focal lesions. ADRENAL GLANDS: Bilateral adrenal glands appear normal. KIDNEYS AND URETERS: The kidneys are normal in size and enhance symmetrically. Mild fullness of the right extrarenal pelvis. No hydroureteronephrosis. No nephroureterolithiasis. No focal renal lesions. PELVIS: BLADDER: Bladder wall is not thickened. Multiple bladder wall diverticuli. REPRODUCTIVE ORGANS: The prostate is not enlarged. BOWEL: The stomach is unremarkable. The small and large bowel are normal in caliber and demonstrate no wall thickening. The appendix appears normal. VESSELS: There is no aneurysmal dilatation of the abdominal aorta. The IVC appears normal. Mild atherosclerosis of the abdominal aorta and its branches. PERITONEUM/RETROPERITONEUM/LYMPH NODES: No ascites or free air, no fluid collection. Stable left pelvic sidewall lymph node 1.3 cm in maximum short axis dimension (series 301, image 200). Stable possible conglomerate left superficial inguinal lymph node measures 1.8 cm in maximum short axis dimension (series 301, image 212). An additional stable left superficial inguinal lymph node measures 1.7 cm in maximum short axis dimension (series 301, image 196). Additionally, there are prominent subcentimeter retroperitoneal lymph nodes which are primarily found superiorly to the level of the common iliac arteries. BONE AND SOFT TISSUE: Soft tissue tract within the medial left gluteal wall which appears to extend to the anus (series 301, image 240). Skin thickening within the posterosuperior right thigh up to 1.1 cm (series 301, image 249). Left gluteal skin thickening up to 2.3 cm (series 301, image 233). Stable size of a left gluteal mass involving the left gluteus randell and left gluteus minimus which currently measures 12.8 x 9.0 cm (series 301, image 252), previously measuring 13.4 by 8.9 on 11/08/2024. There is an exophytic nodule measuring 4.5 x 3.4 cm (series 301, image 275) extending posteriorly from the posterior left superior thigh which is continuous with the dominant left gluteal mass (series 303, image 113). No suspicious osseous lesions are identified. 1. Stable size of a left gluteal mass involving left gluteus randell and minimus which is in continuity with a more inferior exophytic posterior nodule, in keeping with patient's known pathological diagnosis of squamous cell carcinoma. 2. There are enlarged/prominent left superficial inguinal, left pelvic sidewall, and retroperitoneal lymph nodes extending superiorly to the level of the common iliac arteries. These may represent sites of metastatic disease or may be reactive secondary to patient's history of hidradenitis suppurativa. PET-CT is recommended to assist in further delineation. 3. Soft tissue tract within the medial left gluteal wall with apparent extension to the anus which may represent a perianal fistula. MRI can be considered for further evaluation. 4. There is a 4 mm pulmonary nodule within left upper lobe of indeterminate chronicity. Attention on follow-up examinations is recommended. 5. Eaoz-zlqtvgr-elyt-right skin thickening extending from the sacral region to the proximal thigh, in keeping with patient's background of hydradenitis suppurativa. 6. Wgwp-mz-nlkbxpay upper lobe predominant centrilobular and paraseptal emphysema. I personally reviewed the images/study and I agree with the findings as stated by Elenita Munroe MD (PGY-2). This study was interpreted at [place], [place]. MACRO: None Signed by: Ravin Hyatt 11/19/2024 4:54 PM Dictation workstation: [id number] Assessment/Plan Introduction to Integrative Medicine: Spoke with pt at bedside. Patient seemed to appreciate the extra layer of support. Integrative Medicine was introduced as a service for patients with serious illness to help with symptoms through non-pharmacological management, such as mindfulness, acupuncture, and gentle bodywork. Such interventions can assist with symptoms such as anxiety, fatigue, nausea, depression and pain. The [facility] Integrative Medicine Symptom Management program offers multi-disciplinary supervised care of cancer patients using Integrative Modalities billed to insurance using NCCN and SIO/ASCO guideline-driven practices. Integrative hematology/oncology consult team introduced to pt. Non-pharmacological symptom management interventions reviewed, including: Reiki, meditation, mindfulness practices, guided imagery, as well as acupuncture, acupressure, and gentle bodywork. Pt agreeable to follow up when next available (Monday) to assess pt's interest in services. Pt declined integrative heme/onc services. Music therapy, art therapy, dental therapist and pet therapy offered to pt, pt declined; pt stated the sales and marketing coordinator has been following. Left gluteal pain: pain related to malignancy, lesions Pain is well-controlled Defer to supportive oncology team for adequate PO/IV pain regimen Recommend integrative therapy modalities as pt allows: -Acupuncture; provided pt education today. Pt declined services, requesting follow up when next available -Acupressure, gua sha -Gentle bodywork and stretching as tolerated -Art therapy -Music therapy -Chocolatier -Pet therapy Altered Mood: Anxiety and/or depression r/t health concerns History of anxiety/depression -Recommend integrative medicine modalities as listed above Mindfulness Brittney: AMDtx, Calm, Headspace, Insight Timer Guided Imagery Meditation (15 min in the morning) - consider mindfulness (Mindfulness based Stress Reduction) Apps such as CALM or Headspace Deep breathing: Alternate nostril breathing and Deep abdominal breathing (5 min) in the morning [facility] - Guided Meditation Thank you for allowing us to participate in the care of this patient. Integrative Medicine Team will continue to follow as needed. Please contact team with any questions or concerns. Cristiana Evans APRN-SENIOR DATABASE ENGINEER (available by [employer]) [facility] Inpatient Integrative Medicine I spent 45 minutes in the care of this patient which included chart review, interviewing patient/family, discussion with primary team, coordination of care, and documentation. Medical Decision Making was high level due to high complexity of problems, extensive data review, and high risk of management/treatment. Associated Order(s): PHARMACY TO DOSE VANCO Vancomycin Dosing by Pharmacy- Cessation of Therapy Consult to pharmacy for vancomycin dosing has been discontinued by the prescriber, pharmacy will sign off at this time. Please call pharmacy if there are further questions or re-enter a consult if vancomycin is resumed. Thank you, Janny Hardy PharmD, BCPS Associated Order(s): Inpatient consult to Infectious Diseases Inpatient consult to Infectious Diseases Consult performed by: Trudi Rodriguez MD Consult ordered by: Gibson Mendiola MD Primary MD: No primary care provider on file. Reason For Consult Antibitotics for pt with hidradnitis and SCC History Of Present Illness Kevan La is a 49 y.o. 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 He was to have his first oncology appointment today but sent from [facility] for lethargy, increased drainage and odor and an outside CT noted a fluid collection in the left thigh under the necrotic tumor. Tumor board 3/3 plan was to treat with cemipilimab and maybe surgery later. He is afebrile, has pain in hip but no diarrhea, tolerating Augmentin well Past Medical History As above Surgical History He has no past surgical history on file. Social History Occupational History Not on file Tobacco Use Smoking status: Former Current packs/day: 1.00 Average packs/day: 1 pack/day for 1.2 years (1.2 ttl pk-yrs) Types: Cigarettes Start date: 2023 Quit date: 1986 Smokeless tobacco: Never Vaping Use Vaping status: Never Used Substance and Sexual Activity Alcohol use: Not Currently Drug use: Not Currently Sexual activity: Not on file Travel History Travel since 11/11/24 No documented travel since 11/11/24 Family History No family history on file. Allergies Patient has no known allergies. There is no immunization history on file for this patient. Medications Home medications: Medications Prior to Admission Medication Sig Dispense Refill Last Dose/Taking acetaminophen (Tylenol) 325 mg tablet Take 3 tablets (975 mg) by mouth every 8 hours. amoxicillin-pot clavulanate (Augmentin) 875-125 mg tablet Take 1 tablet by mouth 2 times a day. bimekizumab-bkzx (Bimzelx Autoinjector) 160 mg/mL auto-injector Inject 320 mg under the skin see administration instructions. Take 1 dose (320mg) every 2 weeks for 9 doses (16 weeks), then take 1 dose every 4 weeks. (Patient not taking: Reported on 12/08/2024) 640 mL 12 Not Taking chlorhexidine (Hibiclens) 4 % external liquid Apply topically 2 times a day. clindamycin (Cleocin T) 1 % gel Apply topically 2 times a day. Apply to left thigh around incision and drainage site, do not apply directly to surgery site enoxaparin (Lovenox) 40 mg/0.4 mL syringe Inject 0.4 mL (40 mg) under the skin once every 24 hours. [] fentaNYL (Duragesic) 75 mcg/hr patch Place 1 patch over 72 hours on the skin every 3rd day for 9 days. (Patient not taking: Reported on 12/08/2024) 3 patch 0 Not Taking ferrous sulfate 325 (65 Fe) MG EC tablet Take 1 tablet by mouth once daily with breakfast. Do not crush, chew, or split. folic acid (Folvite) 1 mg tablet Take 1 tablet (1 mg) by mouth once daily. gabapentin (Neurontin) 300 mg capsule Take 1 capsule (300 mg) by mouth once daily at bedtime. ibuprofen 200 mg tablet Take 3 tablets (600 mg) by mouth every 4 hours. lactose-reduced food (ENSURE PLUS ORAL) Take by mouth once daily in the morning. lactulose 20 gram/30 mL oral solution Take 30 mL (20 g) by mouth 3 times a day. melatonin 3 mg tablet Take 1 tablet (3 mg) by mouth once daily at bedtime. multivitamin with minerals tablet Take 1 tablet by mouth once daily. (Patient not taking: Reported on 12/08/2024) Not Taking naloxone (Narcan) 0.4 mg/mL injection Infuse 0.5 mL (0.2 mg) into a venous catheter if needed for opioid reversal. ondansetron (Zofran) 4 mg/2 mL injection Infuse 4 mL (8 mg) into a venous catheter every 8 hours if needed for vomiting or nausea. [] oxyCODONE (Roxicodone) 20 mg immediate release tablet Take 1 tablet (20 mg) by mouth every 3 hours if needed for severe pain (7 - 10) or moderate pain (4 - 6) for up to 5 days. (Patient taking differently: Take 0.5 tablets (10 mg) by mouth every 6 hours if needed for severe pain (7 - 10) or moderate pain (4 - 6).) 15 tablet 0 polyethylene glycol (Glycolax, Miralax) 17 gram packet Take 17 g by mouth once daily. sennosides-docusate sodium (Leda-Colace) 8.6-50 mg tablet Take 2 tablets by mouth 2 times a day. (Patient taking differently: Take 2 tablets by mouth once daily.) tiZANidine (Zanaflex) 2 mg tablet Take 1 tablet (2 mg) by mouth 3 times a day. varenicline tartrate (Chantix) 0.5 mg tablet Take 1 tablet (0.5 mg) by mouth 2 times a day for 4 days, THEN 2 tablets (1 mg) 2 times a day. Take with full glass of water.. Do not fill before October 22, 2024. (Patient not taking: Reported on 12/08/2024) 316 tablet 0 Not Taking Current medications: Scheduled medications acetaminophen, 975 mg, oral, q8h chlorhexidine, , Topical, BID cholecalciferol, 10,000 Units, oral, Daily clindamycin, , Topical, BID enoxaparin, 40 mg, subcutaneous, Daily fentaNYL, 1 patch, transdermal, q72h [Held by provider] ferrous sulfate, 325 mg, oral, Daily with breakfast folic acid, 1 mg, oral, Daily [Held by provider] gabapentin, 300 mg, oral, Nightly melatonin, 3 mg, oral, Nightly piperacillin-tazobactam, 3.375 g, intravenous, q6h polyethylene glycol, 17 g, oral, Daily sennosides-docusate sodium, 2 tablet, oral, BID tiZANidine, 2 mg, oral, TID vancomycin, 1,250 mg, intravenous, q24h varenicline tartrate, 1 mg, oral, BID Continuous medications PRN medications PRN medications: HYDROmorphone, ondansetron OR ondansetron, oxyCODONE, prochlorperazine OR prochlorperazine OR prochlorperazine, vancomycin Objective Range of Vitals (last 24 hours) Heart Rate: [58-84] Temp: [36.2 C (97.2 F)-36.6 C (97.8 F)] Resp: [16-18] BP: (84-115)/(52-67) SpO2: [97 %-100 %] Daily Weight 12/07/24 : 89.4 kg (197 lb 1.5 oz) Body mass index is 22.22 kg/m . Physical Exam Nontoxic, laying on right side to stay off left hip Left buttock with scars of hydradenitis, large ulcer with smaller heaped up lesion. No erythema. Malodorus, minimal drainage Labs Results from last 72 hours Lab Units 12/09/24 0555 12/08/24 0602 12/07/24 1750 WBC AUTO x10*3/uL 10.2 11.5* 12.0* HEMOGLOBIN g/dL 8.3* 7.8* 8.0* HEMATOCRIT % 25.6* 26.1* 26.5* PLATELETS AUTO x10*3/uL 650* 595* 645* NEUTROS PCT AUTO % 65.0 70.8 -- LYMPHS PCT AUTO % 17.8 11.7 -- MONOS PCT AUTO % 10.2 11.9 -- EOS PCT AUTO % 4.8 4.8 -- Results from last 72 hours Lab Units 12/09/24 0555 12/08/24 0602 12/07/24 1749 SODIUM mmol/L 140 140 140 POTASSIUM mmol/L 3.6 3.8 3.9 CHLORIDE mmol/L 104 106 109* CO2 mmol/L 25 26 22 BUN mg/dL 15 17 16 CREATININE mg/dL 1.20 1.33* 1.32* GLUCOSE mg/dL 92 112* 91 CALCIUM mg/dL 9.8 9.4 9.6 ANION GAP mmol/L 15 12 13 EGFR mL/min/1.73m*2 73 65 65 PHOSPHORUS mg/dL 3.4 -- -- Results from last 72 hours Lab Units 12/09/24 0555 12/08/24 0602 12/07/24 1749 ALK PHOS U/L -- 48 53 BILIRUBIN TOTAL mg/dL -- 0.3 0.4 PROTEIN TOTAL g/dL -- 6.5 6.7 ALT U/L -- 6* 7* AST U/L -- 6* 8* ALBUMIN g/dL 3.1* 2.9* 3.1* Estimated Creatinine Clearance: 92.1 mL/min (by C-G formula based on SCr of 1.2 mg/dL). C-Reactive Protein Date Value Ref Range Status 12/07/2024 10.84 (H) <1.00 mg/dL Final 11/10/2024 14.82 (H) <1.00 mg/dL Final 10/10/2024 7.72 (H) <1.00 mg/dL Final Sedimentation Rate Date Value Ref Range Status 12/07/2024 102 (H) 0 - 20 mm/h Final 11/10/2024 70 (H) 0 - 20 mm/h Final 10/10/2024 >130 (H) 0 - 20 mm/h Final HIV 1/2 Antigen/Antibody Screen with Reflex to Confirmation Date Value Ref Range Status 11/11/2024 Nonreactive Nonreactive Final No results found for: "HEPCABINIT", "HEPCAB", HCVPCRQUANT Microbiology Susceptibility data from last 90 days. Collected Specimen Info Organism Amoxicillin/Clavulanate Ampicillin Ampicillin/Sulbactam Cefazolin Ceftriaxone Ciprofloxacin Clindamycin Erythromycin Gentamicin Levofloxacin Meropenem Oxacillin Penicillin 12/07/24 Tissue/Biopsy from Surgical Site Infection Mixed Gram-Positive and Gram-Negative Bacteria 11/22/24 Tissue/Biopsy from Wound/Tissue Mixed Gram-Positive and Gram-Negative Bacteria 11/22/24 Tissue/Biopsy from Wound/Tissue Mixed Anaerobic Bacteria Mixed Gram-Negative Bacteria 11/21/24 Tissue/Biopsy from Wound/Tissue Mixed Gram-Positive and Gram-Negative Bacteria 11/12/24 Tissue/Biopsy from Skin Lesion Proteus mirabilis S S S S S S 10/13/24 Swab from ABSCESS Mixed Anaerobic Bacteria Mixed Gram-Positive and Gram-Negative Bacteria 10/11/24 Tissue/Biopsy from Other (specify in comments) Mixed Anaerobic Bacteria Mixed Gram-Positive and Gram-Negative Bacteria 10/10/24 Blood culture from Peripheral Venipuncture Slackia exigua S S S S S 10/10/24 Blood culture from Peripheral Venipuncture Staphylococcus hominis R R S 09/14/24 Tissue/Biopsy from Skin Lesion Mixed Skin Microorganisms Mixed Anaerobic Bacteria 09/14/24 Tissue/Biopsy from Wound/Tissue Mixed Aerobic and Anaerobic Bacteria 09/13/24 Tissue/Biopsy from Skin/Superficial Abscess Mixed Aerobic and Anaerobic Bacteria Collected Specimen Info Organism Piperacillin/Tazobactam Tetracycline Trimethoprim/Sulfamethoxazole Vancomycin 12/07/24 Tissue/Biopsy from Surgical Site Infection Mixed Gram-Positive and Gram-Negative Bacteria 11/22/24 Tissue/Biopsy from Wound/Tissue Mixed Gram-Positive and Gram-Negative Bacteria 11/22/24 Tissue/Biopsy from Wound/Tissue Mixed Anaerobic Bacteria Mixed Gram-Negative Bacteria 11/21/24 Tissue/Biopsy from Wound/Tissue Mixed Gram-Positive and Gram-Negative Bacteria 11/12/24 Tissue/Biopsy from Skin Lesion Proteus mirabilis S R S 10/13/24 Swab from ABSCESS Mixed Anaerobic Bacteria Mixed Gram-Positive and Gram-Negative Bacteria 10/11/24 Tissue/Biopsy from Other (specify in comments) Mixed Anaerobic Bacteria Mixed Gram-Positive and Gram-Negative Bacteria 10/10/24 Blood culture from Peripheral Venipuncture Slackia exigua 10/10/24 Blood culture from Peripheral Venipuncture Staphylococcus hominis R S S 09/14/24 Tissue/Biopsy from Skin Lesion Mixed Skin Microorganisms Mixed Anaerobic Bacteria 09/14/24 Tissue/Biopsy from Wound/Tissue Mixed Aerobic and Anaerobic Bacteria 09/13/24 Tissue/Biopsy from Skin/Superficial Abscess Mixed Aerobic and Anaerobic Bacteria Imaging CT [facility] 12/06: Impression: Large wound along the proximal posterior thigh with large abscess within the posterior compartment of the left upper thigh. There is also presumed cellulitis. No obvious acute cortical erosion. Please note, the marrow is not assessed on a CT examination. Assessment/Plan 49 y.o. 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 Culture again mixed bacteria. While his main problem is the cancer, while here would like to try a metronidazole containing regimen as sometimes it is helpful for odor Recommend: Stop vanc/zosyn Start Ceftriaxone 2 gm IV daily with 500mg metronidazole po tid. I spent 45 minutes in the professional and overall care of this patient. Trudi Rodriguez MD Associated Order(s): WOUND OSTOMY NURSING CONSULT; WOUND OSTOMY NURSING CONSULT; WOUND OSTOMY NURSING CONSULT Images from the original note were not included. Wound Care Consult Visit Date: 12/09/2024 Patient Name: Kevan La Date of : 1975 Reason for Consult: Assess Left hip wound Wound History: Patient has H/O hydradenitis for 11 years Pertinent Labs: Albumin Date Value Ref Range Status 12/09/2024 3.1 (L) 3.4 - 5.0 g/dL Final 11/10/2024 2.9 (L) 3.4 - 5.0 g/dL Final Albumin % Date Value Ref Range Status 11/10/2024 16.4 % Final Wound Assessment: Wound 09/13/24 Other (comment) Buttock Left (Active) Site Assessment Red;Painful;Swelling;White;Yellow 12/07/24 1625 Drainage Description Foul odor;Purulent 12/08/24 09 Drainage Amount Moderate 12/08/24 09 Dressing Gauze;ABD 12/08/24 0945 Dressing Changed Changed 12/08/242037 Dressing Status New drainage 12/08/24 1300 Wound 10/10/24 Leg Left;Upper (Active) Wound Image 12/09/24 1253 Wound Length (cm) 7.5 cm 12/09/24 1253 Wound Width (cm) 5.5 cm 12/09/24 1253 Wound Surface Area (cm^2) 41.25 cm^2 12/09/24 1253 Wound Depth (cm) 2.9 cm 12/09/24 1253 Wound Volume (cm^3) 119.625 cm^3 12/09/24 1253 Wound Healing % 7 12/09/24 1253 State of Healing Non-healing 12/09/24 1253 Margins Well-defined edges 12/09/24 1253 Drainage Description Foul odor;[place]ne 12/09/24 1253 Drainage Amount Moderate 12/09/24 1253 Dressing ABD;Kerlix/rolled gauze 12/09/24 1253 Dressing Changed Changed 12/09/24 1300 Dressing Status Clean;Dry 12/09/24 1300 Wound 10/13/24 Incision Buttock Left (Active) Wound 10/22/24 Buttock Left (Active) Drainage Description Purulent;Foul odor 12/09/24 0851 Drainage Amount Small 12/09/24 0851 Dressing ABD 12/09/24 0851 Wound 12/09/24 Pressure Injury Buttock Right (Active) Wound Image 12/09/24 1313 Site Assessment Sloughing;Non-blanchable erythema 12/09/24 1313 Leda-Wound Assessment Blanchable erythema 12/09/24 1313 Pressure Injury Stage 3 12/09/24 1313 Wound Length (cm) 2.5 cm 12/09/24 1313 Wound Width (cm) 1.8 cm 12/09/24 1313 Wound Surface Area (cm^2) 4.5 cm^2 12/09/24 1313 Margins Poorly defined 12/09/24 1313 Drainage Description Serous 12/09/24 1313 Drainage Amount Small 12/09/24 1313 Dressing Silicone border dressing 12/09/24 1313 Dressing Changed New 12/09/24 1313 Dressing Status Clean 12/09/24 1313 Wound Team Summary Assessment: Patient has large open wound over Left hip with 14 x 16cm mass distal to wound skin is purple and tender over the mass. And a second open area 2 x 3 distal to mass. Both wounds drain and openings on the mass. Recommendation: Continue current skin treatment Cleanse the proximal open wound with normal saline Pack with Kerlix moistened with Vashe Cover with ABD dressings Cut a diaper and tape open end were cut Place as an outer dressing over ABDs. Tape into place leaving edge by distal wound loose without tape per patient request. Place waffle mattress on bed surface Recommendation for right hip Cleanse with normal saline Cover with mepilex sacral dressing Encourage patient to turn to back every 2 hours Wound Team Plan: Please review recommendations Carline Jenkins RN CWON 12/09/2024 8:11 PM Associated Order(s): IP CONSULT TO NUTRITION SERVICES Nutrition Initial Assessment: Nutrition Assessment Reason for Assessment: Admission nursing screening Patient is a 49 y.o. male with refractory hidradenitis supprativa and invasive SCC; admitted for gluteal wound with worsening odor and drainage per Oncology No past medical history on file. No past surgical history on file. Malnutrition Screening Tool (MST) Have you recently lost weight without trying?: No Weight Loss Score: 0 Have you been eating poorly because of a decreased appetite?: No Malnutrition Score: 0 Nutrition History: Energy Intake: Good > 75 % Food and Nutrient History: Met with patient this morning. 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 QUALITY OFFICER would drink ensure and a pastry for breakfast; lunch and dinner were larger meals per pt report. Pt reports nausea this morning. Food Allergy: (none) Anthropometrics: Height: 200.6 cm (6' 6.98") Weight: 89.4 kg (197 lb 1.5 oz) BMI (Calculated): 22.22 IBW/kg (Dietitian Calculated): 99.9 kg Percent of IBW: 89 % Weight History: Wt Readings from Last 20 Encounters: 12/07/24 89.4 kg (197 lb 1.5 oz) 12/07/24 89.4 kg (197 lb 1.5 oz) 11/11/24 104 kg (230 lb) 11/08/24 104 kg (230 lb) (14% wt loss x 1 month) - significant 10/11/24 101 kg (222 lb) 09/13/24 101 kg (222 lb 3.6 oz) 09/12/24 102 kg (225 lb) Weight Change %: Significant Weight Loss: Yes Interpretation of Weight Loss: >5% in 1 month Nutrition Focused Physical Exam Findings: Defer d/t pt positioning and eating Subcutaneous Fat Loss: Defer Subcutaneous Fat Loss Assessment: Defer all Muscle Wasting: Defer Muscle Wasting Assessment: Defer all Edema: Physical Findings: Skin: Positive Nutrition Significant Labs: CBC Trend: Results from last 7 days Lab Units 12/09/24 0555 12/08/24 0602 12/07/24 1750 WBC AUTO x10*3/uL 10.2 11.5* 12.0* RBC AUTO x10*6/uL 3.17* 3.08* 3.15* HEMOGLOBIN g/dL 8.3* 7.8* 8.0* HEMATOCRIT % 25.6* 26.1* 26.5* MCV fL 81 85 84 PLATELETS AUTO x10*3/uL 650* 595* 645* , BMP Trend: Results from last 7 days Lab Units 12/09/24 0555 12/08/24 0602 12/07/24 1749 GLUCOSE mg/dL 92 112* 91 CALCIUM mg/dL 9.8 9.4 9.6 SODIUM mmol/L 140 140 140 POTASSIUM mmol/L 3.6 3.8 3.9 CO2 mmol/L 25 26 22 CHLORIDE mmol/L 104 106 109* BUN mg/dL 15 17 16 CREATININE mg/dL 1.20 1.33* 1.32* , A1C: Lab Results Component Value Date HGBA1C 6.0 (H) 09/14/2024 , BG POCT trend: Medications: Scheduled medications acetaminophen, 975 mg, oral, q8h chlorhexidine, , Topical, BID cholecalciferol, 10,000 Units, oral, Daily clindamycin, , Topical, BID enoxaparin, 40 mg, subcutaneous, Daily fentaNYL, 1 patch, transdermal, q72h [Held by provider] ferrous sulfate, 325 mg, oral, Daily with breakfast folic acid, 1 mg, oral, Daily [Held by provider] gabapentin, 300 mg, oral, Nightly melatonin, 3 mg, oral, Nightly piperacillin-tazobactam, 3.375 g, intravenous, q6h polyethylene glycol, 17 g, oral, Daily sennosides-docusate sodium, 2 tablet, oral, BID tiZANidine, 2 mg, oral, TID vancomycin, 1,250 mg, intravenous, q24h varenicline tartrate, 1 mg, oral, BID PRN medications PRN medications: HYDROmorphone, ondansetron OR ondansetron, oxyCODONE, prochlorperazine OR prochlorperazine OR prochlorperazine, vancomycin I/O: ; Dietary Orders (From admission, onward) Start Ordered 12/08/24 0805 Adult diet Regular Diet effective now Question: Diet type Answer: Regular 12/08/24 0804 12/07/24 1628 May Participate in Room Service ( ROOM SERVICE MAY PARTICIPATE) Once Question: . Answer: Yes 12/07/24 1627 Estimated Needs: Total Energy Estimated Needs in 24 hours (kCal): (0651-8804) Method for Estimating Needs: ABW x 28-32 Total Protein Estimated Needs in 24 Hours (g): (116-134) Method for Estimating 24 Hour Protein Needs: ABW x 1.3-1.5 Total Fluid Estimated Needs in 24 Hours (mL): (per team) Nutrition Diagnosis Malnutrition Diagnosis Patient has Malnutrition Diagnosis: No Nutrition Diagnosis Patient has Nutrition Diagnosis: Yes Diagnosis Status (1): New Nutrition Diagnosis 1: Increased nutrient needs Related to (1): increased metabolic demand As Evidenced by (1): gluteal wound Nutrition Interventions/Recommendations Nutrition prescription for oral nutrition Nutrition Recommendations: Individualized Nutrition Prescription Provided for : : Continue a regular diet as tolerated Will order Ensure High Protein TID (160 kcal, 16g PRO) each Consider Pro-Stat daily (100kcal, 17g PRO) each MVI + minerals, if medically appropriate, considering wound Check Vitamin D, considering wound, and supplement as needed Nutrition Interventions/Goals: Interventions: Meals and snacks, Medical food supplement Meals and Snacks: General healthful diet Medical Food Supplement: Commercial beverage medical food supplement therapy Goal: Ensure high protein TID Nutrition Monitoring and Evaluation Food/Nutrient Related History Monitoring Monitoring and Evaluation Plan: Estimated Energy Intake Estimated Energy Intake: Energy intake greater or equal to 75% of estimated energy needs Anthropometric Measurements Monitoring and Evaluation Plan: Body weight Body Weight: Body weight - Maintain stable weight Biochemical Data, Medical Tests and Procedures Monitoring and Evaluation Plan: Electrolyte/renal panel, Glucose/endocrine profile Electrolyte and Renal Panel: Electrolytes within normal limits Glucose/Endocrine Profile: Glucose within normal limits (80-180 mg/dL), Hemoglobin A1c (HgbA1c) Physical Exam Findings Monitoring and Evaluation Plan: Skin Skin Finding: Impaired wound healing - Improved wound healing Goal Status: New goal(s) identified Time Spent (min): 45 minutes Associated Order(s): IP CONSULT TO SURGICAL ONCOLOGY Images from the original note were not included. Surgical Oncology Consult Note Subjective Chief Complaint/Reason for Consult: LLE wound with associated abscess, concern for underlying mass HPI: Kevan La is a 49 y.o. male with history of HS (which has been refractory to numerous medications), left hip well diff invasive SCC dx in Oct 2024 affecting the left gluteal region who was transferred to [facility] due to concerns for worsening left gluteal infection, surg onc team consulted for evaluation of the necrotic SCC mass. He was admitted in September for a left gluteal abscess/ulcer and underwent I&D with Dr. Dougherty on 10/13. He was re-admitted from SNF with worsening wound and biopsies from 11/12 that showed invasive SCC, discharged back to SNF with plan for Cemipilimab/chemotherapy on 12/09 (follows with Dr. Jiang). Pt was brought back in yesterday 12/07 due to worsening odor/discharge despite being on Augmentin. No significant leukocytosis, elevated ESR/CRP. Wound does not appear obviously infected. Patient HDS, states that his drainage has just been slowly getting worse but has not acutely changed. CT from 11/19 shows the larger mass invading left gluteus and minimus in continuity with the smaller mass along with prominent L superficial inguinal, left pelvic sidewall, and RP LN extending up to common iliac artery level. Also concern for posisble perianal fistula. No other masses or suspicious findings seen. A 12-point ROS was performed and was unremarkable except as above. PMH: No past medical history on file. PSH: No past surgical history on file. Soc Hx: Social History Socioeconomic History Marital status: Single Spouse name: Not on file Number of children: Not on file Years of education: Not on file Highest education level: Not on file Occupational History Not on file Tobacco Use Smoking status: Former Current packs/day: 1.00 Average packs/day: 1 pack/day for 1.2 years (1.2 ttl pk-yrs) Types: Cigarettes Start date: 2023 Quit date: 1986 Smokeless tobacco: Never Vaping Use Vaping status: Never Used Substance and Sexual Activity Alcohol use: Not Currently Drug use: Not Currently Sexual activity: Not on file Other Topics Concern Not on file Social History Narrative Not on file Social Drivers of Health Financial Resource Strain: Medium Risk (12/07/2024) Overall Financial Resource Strain (CARDIA) Difficulty of Paying Living Expenses: Somewhat hard Food Insecurity: No Food Insecurity (12/07/2024) Hunger Vital Sign Worried About Running Out of Food in the Last Year: Never true Ran Out of Food in the Last Year: Never true Recent Concern: Food Insecurity - Food Insecurity Present (10/11/2024) Hunger Vital Sign Worried About Running Out of Food in the Last Year: Sometimes true Ran Out of Food in the Last Year: Sometimes true Transportation Needs: No Transportation Needs (12/07/2024) PRAPARE - Transportation Lack of Transportation (Medical): No Lack of Transportation (Non-Medical): No Physical Activity: Not on file Stress: Not on file Social Connections: Not on file Intimate Partner Violence: Not At Risk (12/07/2024) Humiliation, Afraid, Rape, and Kick questionnaire Fear of Current or Ex-Partner: No Emotionally Abused: No Physically Abused: No Sexually Abused: No Housing Stability: High Risk (12/07/2024) Housing Stability Vital Sign Unable to Pay for Housing in the Last Year: Yes Number of Times Moved in the Last Year: 1 Homeless in the Last Year: No Fam Hx: No family history on file. Allergies: No Known Allergies Current Medications: See inpatient orders Objective Vitals: Temp: [36.1 C (97 F)-37 C (98.6 F)] 36.5 C (97.7 F) Heart Rate: [59-77] 59 Resp: [16] 16 BP: (84-111)/(45-69) 97/50 Physical Exam: GEN: No acute distress. Alert, awake and conversive. HEENT: Sclera anicteric. Moist mucous membranes. RESP: Breathing non-labored, equal chest rise. On RA. CV: Regular rate, normotensive GI: Abdomen soft, nondistended, nontender. : Voiding spontaneously. MSK: No gross deformities. Moves all extremities spontaneously. NEURO: Alert and oriented x3. No focal deficits. PSYCH: Appropriate mood and affect. SKIN: left open gluteal ulcerous wound with purulent and malodorous drainage; skin discoloration diffusely around; more distal open wound with similar discharge and discoloration; tracts throughout hip/thighs congruent with known HS; no obvious necrotic or bleeding tissue Labs within past 24h: Results for orders placed or performed during the hospital encounter of 12/07/24 (from the past 24 hours) CBC and Auto Differential Result Value Ref Range WBC 11.5 (H) 4.4 - 11.3 x10*3/uL nRBC 0.0 0.0 - 0.0 /100 WBCs RBC 3.08 (L) 4.50 - 5.90 x10*6/uL Hemoglobin 7.8 (L) 13.5 - 17.5 g/dL Hematocrit 26.1 (L) 41.0 - 52.0 % MCV 85 80 - 100 fL MCH 25.3 (L) 26.0 - 34.0 pg MCHC 29.9 (L) 32.0 - 36.0 g/dL RDW 17.0 (H) 11.5 - 14.5 % Platelets 595 (H) 150 - 450 x10*3/uL Neutrophils % 70.8 40.0 - 80.0 % Immature Granulocytes %, Automated 0.4 0.0 - 0.9 % Lymphocytes % 11.7 13.0 - 44.0 % Monocytes % 11.9 2.0 - 10.0 % Eosinophils % 4.8 0.0 - 6.0 % Basophils % 0.4 0.0 - 2.0 % Neutrophils Absolute 8.10 (H) 1.20 - 7.70 x10*3/uL Immature Granulocytes Absolute, Automated 0.05 0.00 - 0.70 x10*3/uL Lymphocytes Absolute 1.34 1.20 - 4.80 x10*3/uL Monocytes Absolute 1.36 (H) 0.10 - 1.00 x10*3/uL Eosinophils Absolute 0.55 0.00 - 0.70 x10*3/uL Basophils Absolute 0.05 0.00 - 0.10 x10*3/uL Comprehensive metabolic panel Result Value Ref Range Glucose 112 (H) 74 - 99 mg/dL Sodium 140 136 - 145 mmol/L Potassium 3.8 3.5 - 5.3 mmol/L Chloride 106 98 - 107 mmol/L Bicarbonate 26 21 - 32 mmol/L Anion Gap 12 10 - 20 mmol/L Urea Nitrogen 17 6 - 23 mg/dL Creatinine 1.33 (H) 0.50 - 1.30 mg/dL eGFR 65 >60 mL/min/1.73m*2 Calcium 9.4 8.6 - 10.6 mg/dL Albumin 2.9 (L) 3.4 - 5.0 g/dL Alkaline Phosphatase 48 33 - 120 U/L Total Protein 6.5 6.4 - 8.2 g/dL AST 6 (L) 9 - 39 U/L Bilirubin, Total 0.3 0.0 - 1.2 mg/dL ALT 6 (L) 10 - 52 U/L Vancomycin Result Value Ref Range Vancomycin 16.6 5.0 - 20.0 ug/mL Imaging within past 24h: CT Pelvis 12/06/24 Findings: Stable size of a left gluteal mass involving the left gluteus randell and left gluteus minimus which currently measures 12.8 x 9.0 cm. There is an exophytic nodule measuring 4.5 x 3.4 cm extending posteriorly from the left superior thigh which is continuous with the dominant left gluteal Mass. enlarged/prominent left superficial inguinal, left pelvic sidewall, and retroperitoneal lymph nodes extending superiorly to the level of the common iliac arteries. These may represent sites of metastatic disease or may be reactive secondary to patient's history of hidradenitis suppurativa. ASSESSMENT Kevan La is a 49 y.o. male with history of medically refractory hidradenitis supprativa, invasive SCC dx in Oct 2024 both affecting the LLE who was transferred to [facility] due to concerns of worsening LLE infection. Evaluated by ACS, and given high suspicion for presence of necrotic neoplastic mass associated with his fluid collection, operative intervention was deferred. Surgical oncology was consulted for further evaluation. PLAN: Pt's worsening drainage and growth of the ulcer is related to cancer progression rather than an infection. Pt needs systemic therapy and discussion in multidisciplinary tumor board before any oncologic resection is performed. Patient is already connected with all the appropriate resources and is following with Dr. Jiang for his systemic therapy. No surgical intervention indicated at this point in time. Defer rest of care to primary team. Patient's exam, labs, and findings discussed with Dr. Mina, who agrees with the plan as described above. Kim Little MD PGY-3 General Surgery Surgical Oncology [id number] Cosigned by Kong Mina MD at 12/09/2024 8:32 AM EDT Associated Order(s): Inpatient consult to [facility] Adult Supportive Oncology SUPPORTIVE AND PALLIATIVE ONCOLOGY CONSULT SERVICE DATE: 12/08/2024 ASSESSMENT/PLAN: Kevan La is a 49 y.o. male diagnosed with squamous cell carcinoma. PMH significant for refractory hidradenitis supprativa (HS), chronic gluteal wound and hypotension. Admitted 12/07/2024 for further evaluation and management of cellulitis in LLE. Supportive and Palliative Oncology is consulted for pain management. Symptom Management Plan: Recommended changes are bolded Pain: Cancer related pain: gluteal abscess , somatic, well-controlled Home regimen: Oxycodone 5mg Intolerances/previously tried: N/A Risk factors: none Renal function impaired and Hepatic function WNL Continue 75 mcg fentanyl patch q72h Continue 20mg oxycodone q3h PRN for mod- severe pain Continue 1.0 mg IV hydromorphone q2h PRN for BT pain Nausea: At risk for nausea with vomiting related to opioids Home regimen: none QTc: within normal limits Sub- optimally controlled Continue 8 mg ondansetron q8h PRN Continue 10mg prochlorperazine q6h PRN Pain control as above Constipation At risk for constipation related to medication side effects (including opioids), currently not constipated Usual bowel pattern: every day Home regimen: none LBM 4 days Continue miralax daily Continue 2 senna-s BID Goal to have BM without straining q48-72h, adjust regimen as needed Disposition: Please start the process of having prior authorization with meds to beds deliver medications to patient prior to discharge via [facility] pharmacy. Prescriptions will need to be sent 48-72 hours prior to discharge so that a prior authorization can be completed. Discharge date: unknown pending acute issues Patient has an appointment with Outpatient Supportive Oncology Astrid Watson, RANDALL-SENIOR DATABASE ENGINEER 12/17/24 SIGNATURE: TRAVIS Rodas PAGER/CONTACT: Contact information: Supportive and Palliative Oncology Monday-Monday 8 AM-5 PM [email or web address] Secure chat or pager [phone]. After hours and weekends: pager [phone] Inpatient consult to [facility] Adult Supportive Oncology Consult performed by: TRAVIS Rodas Consult ordered by: Mine Nunez MD PALLIATIVE MEDICINE OUTPATIENT PROVIDER: TRAVIS Talavera- has NPV 12/17 CURRENT ATTENDING PROVIDER: Toya Rubio MD Medical Oncologist: Sreedhar Jiang MD Radiation Oncologist: No care project manager/team coach to display Primary Physician: No primary care provider on file. None REASON FOR CONSULT/CHIEF CONSULT COMPLAINT: pain management Subjective HISTORY OF PRESENT ILLNESS: Kevan La is a 49 y.o. male diagnosed with squamous cell carcinoma. PMH significant for refractory hidradenitis supprativa (HS), chronic gluteal wound and hypotension. Admitted 12/07/2024 for further evaluation and management of cellulitis in E. Supportive and Palliative Oncology is consulted for pain management. Pain Assessment: Location: Left gluteal abscess Duration: Constant Characteristics: Rating: Severe Descriptors: throbbing, sharp, and burning Aggravating: movement Relieving: Analgesics, Positioning, and Modifying activity Intolerances:Kevan La has No Known Allergies. Interference with Function: Somewhat Barriers to Pain Management: Fear of addiction Opioid Requirements Past 24 h opioid requirements (12/07/24 at 0800 to 12/08/24 at 0800): Hydromorphone 1.0 mg IV x 4 doses = 4.0 mg = 64 OME Oxycodone IR 20 mg PO x 4 doses = 80 mg = 120 OME Fentanyl TD 75 mcg/h = 150 OME Total 24h OME use: 334 OARRS/PDMP reviewed - no aberrant behavior noted. Symptom Assessment: Pain:very much Headache: none Dizziness:none Lack of energy: very much Difficulty sleeping: none Worrying: a little Anxiety: none Depressive symptoms/low mood: a little Pain in mouth/swallowing: none Dry mouth: none Taste changes: none Shortness of breath: none Lack of appetite: a little Nausea: a little Vomiting: a little Constipation: very much Diarrhea: none Sore muscles: a little Numbness or tingling in hands/feet/other: none ECOG Performance Status: [] 0 Fully active, able to carry on all pre-disease performance without restriction [] 1 Restricted in physically strenuous activity but ambulatory and able to carry out work of a light or sedentary nature, e.g., light house work, office work [x] 2 Ambulatory and capable of all selfcare but unable to carry out any work activities; up and about more than 50% of waking hours [] 3 Capable of only limited selfcare; confined to bed or chair more than 50% of waking hours [] 4 Completely disabled; cannot carry on any selfcare; totally confined to bed or chair [] 5 Information obtained from: chart review, interview of patient, discussion with RN, and discussion with primary team ____ Oncology History Squamous cell carcinoma of left hip 11/29/2024 Initial Diagnosis Squamous cell carcinoma of left hip 12/09/2024 - Chemotherapy Cemiplimab, 21 Day Cycles No past medical history on file. No past surgical history on file. No family history on file. SOCIAL HISTORY: Single- lives alone. Has supportive brother and parents in [place], [place]. 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 Social History: reports that he quit smoking about 38 years ago. His smoking use included cigarettes. He started smoking about 14 months ago. He has a 1.2 pack-year smoking history. He has never used smokeless tobacco. He reports that he does not currently use alcohol. He reports that he does not currently use drugs. REVIEW OF SYSTEMS: Review of systems negative unless noted in HPI. Objective Lab Results Component Value Date WBC 11.5 (H) 12/08/2024 HGB 7.8 (L) 12/08/2024 HCT 26.1 (L) 12/08/2024 MCV 85 12/08/2024 PLT 595 (H) 12/08/2024 Lab Results Component Value Date GLUCOSE 112 (H) 12/08/2024 CALCIUM 9.4 12/08/2024 NA 140 12/08/2024 K 3.8 12/08/2024 CO2 26 12/08/2024 CL 106 12/08/2024 BUN 17 12/08/2024 CREATININE 1.33 (H) 12/08/2024 Lab Results Component Value Date ALT 6 (L) 12/08/2024 AST 6 (L) 12/08/2024 ALKPHOS 48 12/08/2024 BILITOT 0.3 12/08/2024 Estimated Creatinine Clearance: 83.1 mL/min (A) (by C-G formula based on SCr of 1.33 mg/dL (H)). Encounter Date: 11/10/24 ECG 12 Lead Result Value Ventricular Rate 77 Atrial Rate 77 IN Interval 146 QRS Duration 108 QT Interval 368 QTC Calculation(Bazett) 416 P [place] 55 R [place] 72 T [place] 66 QRS Count 13 Q Onset 211 P Onset 138 P Offset 195 T Offset 395 QTC [place] 399 Narrative Normal sinus rhythm Normal ECG When compared with ECG of 13-OCT-2024 11:30, Vent. rate has decreased BY [address] no longer depressed in Inferior leads ST no longer depressed in Anterolateral leads T wave inversion no longer evident in Anterior leads Confirmed by Bobby Villa ([id number]) on 11/28/2024 9:05:21 AM Wt Readings from Last 5 Encounters: 12/07/24 89.4 kg (197 lb 1.5 oz) 12/07/24 89.4 kg (197 lb 1.5 oz) 11/11/24 104 kg (230 lb) 11/08/24 104 kg (230 lb) 10/11/24 101 kg (222 lb) Current Outpatient Medications Medication Instructions acetaminophen (TYLENOL) 975 mg, oral, Every 8 hours amoxicillin-pot clavulanate (Augmentin) 875-125 mg tablet 1 tablet, oral, 2 times daily Bimzelx Autoinjector 320 mg, subcutaneous, See admin instructions, Take 1 dose (320mg) every 2 weeks for 9 doses (16 weeks), then take 1 dose every 4 weeks. chlorhexidine (Hibiclens) 4 % external liquid Topical, 2 times daily cholecalciferol, vitamin D3, (VITAMIN D3 ORAL) 10,000 Units, Daily clindamycin (Cleocin T) 1 % gel Topical, 2 times daily, Apply to left thigh around incision and drainage site, do not apply directly to surgery site enoxaparin (LOVENOX) 40 mg, subcutaneous, Every 24 hours ferrous sulfate 325 mg, Daily with breakfast folic acid (FOLVITE) 1 mg, oral, Daily gabapentin (NEURONTIN) 300 mg, oral, Nightly ibuprofen 600 mg, oral, Every 6 hours PRN lactose-reduced food (ENSURE PLUS ORAL) oral, Every morning lactulose 20 g, oral, 3 times daily melatonin 3 mg, oral, Nightly multivitamin with minerals tablet 1 tablet, oral, Daily mv-min/folic/K1/lycopen/lutein (MEN 50 PLUS MULTIVITAMIN ORAL) 1 tablet, oral, Daily naloxone (NARCAN) 0.2 mg, intravenous, As needed ondansetron (ZOFRAN) 8 mg, intravenous, Every 8 hours PRN polyethylene glycol (GLYCOLAX, MIRALAX) 17 g, oral, Daily sennosides-docusate sodium (Leda-Colace) 8.6-50 mg tablet 2 tablets, oral, 2 times daily tiZANidine (ZANAFLEX) 2 mg, oral, 3 times daily varenicline tartrate (Chantix) 0.5 mg tablet Take 1 tablet (0.5 mg) by mouth 2 times a day for 4 days, THEN 2 tablets (1 mg) 2 times a day. Take with full glass of water.. Do not fill before October 22, 2024. Scheduled medications acetaminophen, 975 mg, oral, q8h chlorhexidine, , Topical, BID cholecalciferol, 10,000 Units, oral, Daily clindamycin, , Topical, BID enoxaparin, 40 mg, subcutaneous, Daily fentaNYL, 1 patch, transdermal, q72h [Held by provider] ferrous sulfate, 325 mg, oral, Daily with breakfast folic acid, 1 mg, oral, Daily [Held by provider] gabapentin, 300 mg, oral, Nightly melatonin, 3 mg, oral, Nightly piperacillin-tazobactam, 3.375 g, intravenous, q6h polyethylene glycol, 17 g, oral, Daily sennosides-docusate sodium, 2 tablet, oral, BID tiZANidine, 2 mg, oral, TID [START ON 12/09/2024] vancomycin, 1,250 mg, intravenous, q24h varenicline tartrate, 1 mg, oral, BID Continuous medications PRN medications HYDROmorphone, 1 mg, q2h PRN ondansetron, 8 mg, q8h PRN oxyCODONE, 20 mg, q3h PRN prochlorperazine, 10 mg, q6h PRN Or prochlorperazine, 10 mg, q6h PRN Or prochlorperazine, 25 mg, q12h PRN vancomycin, , Daily PRN Allergies: No Known Allergies PHYSICAL EXAMINATION: Vital Signs: Vital signs reviewed Vitals: 12/08/24 0831 BP: 90/55 Pulse: 67 Resp: 16 Temp: 36.6 C (97.9 F) SpO2: 99% Pain Score: 5 - Moderate pain Physical Exam Chronically ill-appearing M Laying in bed, NAD A&O x 3, pleasant and cooperative with interview & exam Breathing comfortably on RA Abd soft, NTND No edema in ext, LLE erythematous PALLIATIVE CARE ENCOUNTER: Supportive and Palliative Oncology encounter: Spoke with patient at bedside Emotional support provided Coordination of care: coordination of IDT involvement Medical Decision Making/Goals of Care/Advance Care Planning: Patient's current clinical condition, including diagnosis, prognosis, and management plan, and goals of care were discussed. Life limiting disease: SCC of UNK primary Family: Supportive though live in [place] Performance status: Moderate limitations due to pain Joys/meaning/strength: Family and [place] Understanding of health: Demonstrates good prognostic understanding of disease process, understands plan for treatment of cellulitis and aggressive pain management. Additionally increased wound drainage and odor. Hopeful to get back to rehab soon as he was making significant progress there. Information:Wants full disclosure Goals: symptom control Worries and fears now and future: ongoing symptoms Code status discussion: Discussed previously and Full code Advance Directives Existence of Advance Directives:No - not interested Decision maker: Surrogate decision maker is brother Omkar La [phone] Supportive Interventions: Interventions: Music Therapy: referral placed, Art Therapy: referral placed, SPO Spiritual Care: referral placed Signature and billing: Medical complexity was high level due to due to complexity of problems, extensive data review, and high risk of management/treatment. DATA Diagnostic tests and information reviewed for today's visit: Conversation with primary team, Most recent labs and imaging results, Medications Some elements copied from H&P note on 12/07/24, the elements have been updated and all reflect current decision making from today, 12/08/2024. Plan of Care discussed with: Provider, RN, Patient Thank you for asking [facility] to assist with care of this patient. Recommendations will be communicated back to the consulting service by way of shared electronic medical record/secure chat/email or [id number]. We will continue to follow. Please contact us for additional questions or concerns. SIGNATURE: TRAVIS Rodas PAGER/CONTACT: Contact information: [facility] Monday-Monday 8 AM-5 PM [email or web address] Secure chat or pager [phone]. After hours and weekends: pager [phone] documented in this encounter [facility] Work Phone: 12-17-2024 Hospital Discharge instructions Fer Gupta MD - 12/17/2024 11:50 AM EDT You came to the hospital because of worsening wound on your buttocks. We did imaging that showed worsening invasion of your squamous cell cancer, in addition to your hidradenitis suppurativa. We continue to treat you with antibiotics which helped with the odor and wound. However immunotherapy/chemotherapy with Dr. Bermudez will be the most important part of your treatment process. We're glad you are feeling well enough to go home. Please review all your medication changes. If you have any questions, please let us know before you leave, or reach out to your primary care provider (PCP). Your on-file PCP is None. Continue Augmentin until the end of the month (December 14) Appointments/follow-up: MondayDecember [address] Snell (Oncologist) for immunotherapy infusion Dermatology appointment [facility] on 12/30 The central scheduling line is if you do not hear from one of these services or if you need to reschedule. It was a pleasure to take care of you; we hope you continue to feel better! documented in this encounter [facility] Work Phone: 12-16-2024 Procedure note Associated Ord er(s): SCREWHEAD POLISHER MODIFIED BARIUM SWALLOW EVALUATION Speech-Language Pathology Inpatient Modified Barium Swallow Study Patient Name: Kevan La : 1975 Today's Date: 12/16/24 Start Time: 845 Stop Time: 915 Time Calculation (min): 30 min Modified Barium Swallow Study completed. Informed verbal consent obtained prior to completion of exam. Trials of thin liquid, mildly thick liquid, puree, and solids were given. SCREWHEAD POLISHER: MINDY Camp Contact info: Maira [employer] stuart Reason for Referral: C/f aspiration/oropharyngeal dysphagia Patient Hx: Kevan La is a 49 y.o. male with history of hidradenitis supprativa refractory to numerous medications, invasive SCC dx in Oct 2024 both affecting the LLE who was transferred to [facility] due to concerns for worsening infection in the LLE. Pt is stable with no s/s of systemic infection. High suspicion for necrotic oncologic mass over fluid collection. No indication for I&D. Requested outside images from rads op, recommend requesting radiology overread. Consider MRI to further evaluation of soft tissue/mass Respiratory Status: Room air Current diet: Easy to Chew Solids and Thin Liquids Pain: Endorses gluteal pain, poor positioning because of this. DIET RECOMMENDATIONS: - Easy to Chew (IDDSI Level 7) - Thin liquids (IDDSI Level 0) STRATEGIES: Upright for all PO intake Remain upright for 20-30 min after eating Small bites/sips Alternate food and liquids SCREWHEAD POLISHER PLAN: Skilled SCREWHEAD POLISHER Services: Skilled SCREWHEAD POLISHER intervention for dysphagia is warranted. SCREWHEAD POLISHER Frequency: 2x per week Duration: 1-2 weeks Treatment/Interventions: - Diet tolerance/advancement Discussed POC: patient Discussed Risks/Benefits: Yes Patient/Caregiver Agreeable: Yes Short term goals established: Pt will tolerate least restrictive diet with no overt clinical s/s aspiration 100% of the time. Start Date: 12/15/24 End Date: 01/15/25 Status: Progressing Education Provided: Results and recommendations per MBSS, with video review; recommendations and POC at this time. Verbal understanding and agreement given on all accounts. Treatment Provided Today: SCREWHEAD POLISHER provided extensive education and training to pt/pt family regarding anatomy/physiology of swallow function, risk factors of aspiration/aspiration pna & how to mitigate factors, diet modifications, and the use of compensatory swallow strategies to promote pt safety upon PO intake. Additional Medical Consults Suggested: N/A Repeat Study: N/A Mechanics of the Swallow Summary: ORAL PHASE: Lip Closure - Intact Tongue Control During Bolus Hold - Intact Bolus prep/mastication - Impaired Bolus transport/lingual motion - Intact Oral residue - absent PHARYNGEAL PHASE: Initiation of pharyngeal swallow - Impaired Soft palate elevation - Intact Laryngeal elevation - Intact Anterior hyoid excursion - Intact Epiglottic movement - Impaired Laryngeal vestibule closure - Impaired Pharyngeal stripping wave - Intact Pharyngeal contraction (A/P view) - Not tested Pharyngoesophageal segment opening - Intact Tongue base retraction - Intact Pharyngeal residue - absent ESOPHAGEAL PHASE: Esophageal clearance - Intact *Of note: The A-P bolus follow-through is not intended to be utilized as a diagnostic assessment of the esophagus, rather a tool to observe the biomechanical aspects of the swallow continuum and to inform the need for further evaluation by medical specialists, as applicable. SCREWHEAD POLISHER Impressions with Severity Rating: Pt presenting with mild oropharyngeal dysphagia. Given trials of thin liquid, mildly thick liquid, puree, and soft solids. During straw sips of thin and mildly thick liquids, pt penetrated however remained above the vocal folds with minimal residues present. No penetration/aspiration seen with puree or solid consistencies. No significant residues present across trials. Oral Phase - Pt has adequate bolus formation, control, and A-P transit. Mastication and bolus formation for puree and solids is functional yet slightly prolonged (pt is edentulous). Pharyngeal Phase - Pt has slightly delayed swallow initiation e/b moderate amount of thin and mildly thick liquids reaching the level of the pyriform sinus at initiation of swallow. Intermittent limited inversion of the epiglottis and slightly reduced laryngeal vestibule closure at swallow onset results in penetration of min amounts of thin liquids and mildly thick liquids during the swallow. No contact to the vocal folds and min amount of residues. Esophageal Phase - Oblique view obtained, suspect within normal limits for clearance SCREWHEAD POLISHER recommends cautious initiation of thin liquids and easy to chew diet. See additional PO intake guidelines outlined below. If pt demonstrates any change/decline in medical/mental/respiratory status please make NPO and alert SCREWHEAD POLISHER. Will continue to follow while in acute care setting to ensure diet tolerance and use of safe swallow guidelines. MD aware of recommendations Rosenbek's Penetration Aspiration Scale Thin Liquids: 3. PENETRATION with LOW ASPIRATION risk - contrast remains above vocal cords, visible residue] [place] Thick Liquids: 3. PENETRATION with LOW ASPIRATION risk - contrast remains above vocal cords, visible residue] Puree: 1. NO ASPIRATION & NO PENETRATION - no aspiration, contrast does not enter airway Solids: 1. NO ASPIRATION & NO PENETRATION - no aspiration, contrast does not enter airway documented in this encounter [facility] Work Phone: 12-10-2024 Nurse Note Patient asked to remove Bed waffle as it has been exacerbating pain on right hip. I went at length on it's purpose, along with alternatives like repositioning, other bed options , and pain mgnt. He asked for pain medication only. Wound dressing was changed. I assisted patient to bathroom and offered him the chair shortly after and he refused. As his pain is his determining factor. Patient has voiced that he doesn't appreciate the tone used to explain his care by main team citing he's "not a child" I offered him some comfort and advice on managing his emotions. My plan is to stay on top of pain mgnt as it seems to dictate his day. Safety promotion, getting a commode at bedside, bed alarm, and education. When time permits I will offer some divisional activities. documented in this encounter [facility] Work Phone: 12-07-2024 History and physical note [facility] ACUTE CARE SURGERY - CONSULT Patient Name: Kevan La Admit Date: 12/07/2024 : 1975 AGE: 49 y.o. GENDER: male TODAY'S ASSESSMENT AND PLAN OF CARE: ASSESSMENT: Kevna La is a 49 y.o. male with history of hidradenitis supprativa refractory to numerous medications, invasive SCC dx in Oct 2024 both affecting the LLE who was transferred to [facility] due to concerns for worsening infection in the LLE. Pt is stable with no s/s of systemic infection. High suspicion for necrotic oncologic mass over fluid collection. No indication for I&D. Requested outside images from rads op, recommend requesting radiology overread. Consider MRI to further evaluation of soft tissue/mass Discussed with Dr. Garrison. Kishore Sweeney MD PGY-1 General Surgery Acute Care Surgery [id number] Subjective CHIEF COMPLAINT/REASON FOR CONSULT: Chief Complaint: change in quantity and quality of drainage from know HS HPI: Kevan La is a 49 y.o. male with history of hidradenitis supprativa refractory to numerous medications, invasive SCC dx in Oct 2024 both affecting the LLE who was transferred to [facility] due to concerns for worsening infection in the LLE. Pt is stable with no s/s of systemic infection. Pt has refractory, severe HS and has failed numerous medications including a clinical trial of povorcitinib. He was admitted in September for a worsening abscess and underwent I&D with Dr. Dougherty on 10/13. On 11/08/24, he was readmitted to OSH with c/f sepsis and was transferred to . Workup revealed hypercalcemia; a biopsies taken of thigh and gluteal wound and revealed well-differentiated SCC. Pt representing from SNF for increased output as well as change in character from purulent to malodorous sanguinopurulent over the past week. Pt denies fevers/chills though has had malaise for a couple of days. He states he has maintained adequate PO intake. Objective PAST MEDICAL HISTORY: PMH: HSS PSH: I&D on 10/13 FH: No family history on file. SOCIAL HISTORY: Smoking: Social History Tobacco Use Smoking Status Former Current packs/day: 1.00 Average packs/day: 1 pack/day for 1.2 years (1.2 ttl pk-yrs) Types: Cigarettes Start date: 2023 Quit date: 1986 Smokeless Tobacco Never Alcohol: Social History Substance and Sexual Activity Alcohol Use Not Currently MEDICATIONS: Prior to Admission medications Medication Sig Start Date End Date Taking? Authorizing Provider acetaminophen (Tylenol) 325 mg tablet Take 3 tablets (975 mg) by mouth every 8 hours. 11/27/24 Danna Soares MD amoxicillin-pot clavulanate (Augmentin) 875-125 mg tablet Take 1 tablet by mouth 2 times a day. 11/27/24 12/27/24 Danna Soares MD bimekizumab-bkzx (Bimzelx Autoinjector) 160 mg/mL auto-injector Inject 320 mg under the skin see administration instructions. Take 1 dose (320mg) every 2 weeks for 9 doses (16 weeks), then take 1 dose every 4 weeks. 11/12/24 11/12/25 Brigitte Coy MD chlorhexidine (Hibiclens) 4 % external liquid Apply topically 2 times a day. 11/27/24 Danna Soares MD cholecalciferol, vitamin D3, (VITAMIN D3 ORAL) Take 10,000 Units by mouth once daily. Historical ProviderMD clindamycin (Cleocin T) 1 % gel Apply topically 2 times a day. Apply to left thigh around incision and drainage site, do not apply directly to surgery site 10/21/24 Frances Watts MD enoxaparin (Lovenox) 40 mg/0.4 mL syringe Inject 0.4 mL (40 mg) under the skin once every 24 hours. 11/27/24 Danna Soares MD fentaNYL (Duragesic) 75 mcg/hr patch Place 1 patch over 72 hours on the skin every 3rd day for 9 days. 11/28/24 12/07/24 Danna Soares MD ferrous sulfate 325 (65 Fe) MG EC tablet Take 1 tablet by mouth once daily with breakfast. Do not crush, chew, or split. Historical ProviderMD folic acid (Folvite) 1 mg tablet Take 1 tablet (1 mg) by mouth once daily. 11/27/24 Danna Soares MD gabapentin (Neurontin) 300 mg capsule Take 1 capsule (300 mg) by mouth once daily at bedtime. 11/27/24 11/27/25 Danna Soares MD ibuprofen 200 mg tablet Take 3 tablets (600 mg) by mouth every 6 hours if needed for mild pain (1 - 3). Historical ProviderMD lactose-reduced food (ENSURE PLUS ORAL) Take by mouth once daily in the morning. Historical ProviderMD lactulose 20 gram/30 mL oral solution Take 30 mL (20 g) by mouth 3 times a day. 11/27/24 01/26/25 Danna Soares MD melatonin 3 mg tablet Take 1 tablet (3 mg) by mouth once daily at bedtime. 11/27/24 11/27/25 Danna Soares MD multivitamin with minerals tablet Take 1 tablet by mouth once daily. 11/28/24 11/28/25 Danna Soares MD mv-min/folic/K1/lycopen/lutein (MEN 50 PLUS MULTIVITAMIN ORAL) Take 1 tablet by mouth once daily. Historical Provider, naloxone (Narcan) 0.4 mg/mL injection Infuse 0.5 mL (0.2 mg) into a venous catheter if needed for opioid reversal. 11/27/24 11/27/25 Danna Soares MD ondansetron (Zofran) 4 mg/2 mL injection Infuse 4 mL (8 mg) into a venous catheter every 8 hours if needed for vomiting or nausea. 11/27/24 11/27/25 Danna Soares MD oxyCODONE (Roxicodone) 20 mg immediate release tablet Take 1 tablet (20 mg) by mouth every 3 hours if needed for severe pain (7 - 10) or moderate pain (4 - 6) for up to 5 days. 11/27/24 12/02/24 Danna Soares MD polyethylene glycol (Glycolax, Miralax) 17 gram packet Take 17 g by mouth once daily. 10/21/24 Frances Watts MD sennosides-docusate sodium (Leda-Colace) 8.6-50 mg tablet Take 2 tablets by mouth 2 times a day. 11/27/24 11/27/25 Danna Soares MD tiZANidine (Zanaflex) 2 mg tablet Take 1 tablet (2 mg) by mouth 3 times a day. 10/21/24 Frances Watts MD varenicline tartrate (Chantix) 0.5 mg tablet Take 1 tablet (0.5 mg) by mouth 2 times a day for 4 days, THEN 2 tablets (1 mg) 2 times a day. Take with full glass of water.. Do not fill before October 22, 2024. 10/22/24 01/19/25 Frances Watts MD ALLERGIES: No Known Allergies REVIEW OF SYSTEMS: A 12-point ROS was performed and was unremarkable except as above. PHYSICAL EXAM: GEN: No acute distress, nontoxic appearing. Alert, awake and conversant. HEENT: Sclera anicteric. Moist mucous membranes. RESP: Breathing non-labored, equal chest rise. On RA. CV: Regular rate, normotensive GI: Abdomen soft, nondistended, nontender. : Voiding spontaneously. MSK: No gross deformities. Moves all extremities spontaneously. NEURO: Alert and oriented x3. No focal deficits. PSYCH: Appropriate mood and affect. SKIN: L open gluteal wound with purulent, malodorous drainage, numerous tracts evident on L glute and thigh. Skin discoloration, and protruding mass evident inferior to above wound. Ulcerous lesion on L thigh. Tracts below this lesion with purulent drainage. IMAGING SUMMARY: Reviewed prior images showing mass in LLE. Unable to access most recent 12/06 scan. LABS: Results for orders placed or performed during the hospital encounter of 12/07/24 (from the past 24 hours) Comprehensive metabolic panel Result Value Ref Range Glucose 91 74 - 99 mg/dL Sodium 140 136 - 145 mmol/L Potassium 3.9 3.5 - 5.3 mmol/L Chloride 109 (H) 98 - 107 mmol/L Bicarbonate 22 21 - 32 mmol/L Anion Gap 13 10 - 20 mmol/L Urea Nitrogen 16 6 - 23 mg/dL Creatinine 1.32 (H) 0.50 - 1.30 mg/dL eGFR 65 >60 mL/min/1.73m*2 Calcium 9.6 8.6 - 10.6 mg/dL Albumin 3.1 (L) 3.4 - 5.0 g/dL Alkaline Phosphatase 53 33 - 120 U/L Total Protein 6.7 6.4 - 8.2 g/dL AST 8 (L) 9 - 39 U/L Bilirubin, Total 0.4 0.0 - 1.2 mg/dL ALT 7 (L) 10 - 52 U/L Magnesium Result Value Ref Range Magnesium 1.86 1.60 - 2.40 mg/dL C-reactive protein Result Value Ref Range C-Reactive Protein 10.84 (H) <1.00 mg/dL CBC Result Value Ref Range WBC 12.0 (H) 4.4 - 11.3 x10*3/uL nRBC 0.0 0.0 - 0.0 /100 WBCs RBC 3.15 (L) 4.50 - 5.90 x10*6/uL Hemoglobin 8.0 (L) 13.5 - 17.5 g/dL Hematocrit 26.5 (L) 41.0 - 52.0 % MCV 84 80 - 100 fL MCH 25.4 (L) 26.0 - 34.0 pg MCHC 30.2 (L) 32.0 - 36.0 g/dL RDW 16.8 (H) 11.5 - 14.5 % Platelets 645 (H) 150 - 450 x10*3/uL Blood Culture Specimen: Peripheral Venipuncture; Blood culture Result Value Ref Range Blood Culture Loaded on Instrument - Culture in progress Blood Culture Specimen: Peripheral Venipuncture; Blood culture Result Value Ref Range Blood Culture Loaded on Instrument - Culture in progress I/O past 24h: No intake/output data recorded. I have reviewed all laboratory and imaging results ordered/pertinent for this encounter. Cosigned by Astrid Lopez DO at 12/08/2024 1:05 AM EDT Associated attestation - Astrid Lopez DO - 12/08/2024 1:05 AM EDT Pts imaging from [place] and [place] imaging [place] [facility] [place]. Recommend having our radiology team review [place] CT and provide comparison to last CT here. My concern is that this is the manifestation of a deep necrotic tumor rather than a simple abscess. MRI could also be obtained as recommended on prior imaging. Pt is hemodynamically stable, WBC 12. No indication for emergent surgery. If further imaging or comparison imaging is consistent with necrotic tumor, surgical oncology would be appropriate. Will await additional data prior to creating plan. Images from the original note were not included. HISTORY & PHYSICAL Kevan La : 1975(49 y.o.) Date: 12/07/24 H&P Chief Complaint: Cellulitis PCP: No primary care provider on file. HPI: Kevan La is a 49 y.o. male with a PMHx of refractory hidradenitis supprativa and squamous cell carcinoma and who presents for cellulitis. Was admitted from OSH on 12/08, chronic gluteal wound and hypotension. Today he presents as transfer from [facility], came in from [facility], reporting worsening wound. States for the last week he has noticed increased odor and discharge (unclear what color). Endorses taking his Augmentin as instructed. Denies any worsening pain. States during this time he has felt fatigued and endorses nausea and NBNB vomiting. Denies any fever, chills, or any other symptoms. Notably, the pt was admitted at [facility] 11/10-11/27 after her arrived from [facility] and CT revealed large ulcerative wound at the left buttock which was biopsied 11/12 and 11/15 and revealed invasive SCC.- pt has been following with Dr. Jiang with plan to begin Cemipilimab 12/13. Wound grew proteus mirabilis susceptible to augmentin, wound cultures sterile. He was briefly on zosyn, but was ultimately deescalated to PO Augmentin to SNF. Also found to have hypercalcemia during that admission. Hypercalcemia work up included myeloma labs, which showed 0.2 g/dL monoclonal free lambda light chains in beta region, for which Hematology was engaged. Pt also had elevated IgA and normal IgG and IgM levels. Found to have MGUS. Supportive onc provided robust pain regimen. Pertinent ROS as per HPI. The patient's vital signs: Temp: [37.2 C (99 F)] 37.2 C (99 F) Heart Rate: [74] 74 Resp: [16] 16 BP: (101)/(63) 101/63 EKG: @No results found for this or any previous visit.No results found for this or any previous visit. Labs: Lab Results Component Value Date NA 136 11/27/2024 K 4.0 11/27/2024 CL 99 11/27/2024 CO2 27 11/27/2024 BUN 10 11/27/2024 CREATININE 1.38 (H) 11/27/2024 GLUCOSE 139 (H) 11/27/2024 CALCIUM 9.5 11/27/2024 PROT 7.2 11/17/2024 BILITOT 0.3 11/17/2024 ALKPHOS 83 11/17/2024 AST 13 11/17/2024 ALT 20 11/17/2024 Lab Results Component Value Date WBC 12.3 (H) 11/27/2024 HGB 7.9 (L) 11/27/2024 HCT 25.0 (L) 11/27/2024 MCV 85 11/27/2024 PLT 715 (H) 11/27/2024 Surgical Hx Gluteal wound s/p abscess I&D 10/13/24 Family Hx No family history on file. Social Hx He reports that he quit smoking about 38 years ago. His smoking use included cigarettes. He started smoking about 13 months ago. He has a 1.1 pack-year smoking history. He has never used smokeless tobacco. He reports that he does not currently use alcohol. He reports that he does not currently use drugs. Allergies Patient has no known allergies Prior to Admission medications Medication Sig Start Date End Date Taking? Authorizing Provider acetaminophen (Tylenol) 325 mg tablet Take 3 tablets (975 mg) by mouth every 8 hours. 11/27/24 Danna Soares MD amoxicillin-pot clavulanate (Augmentin) 875-125 mg tablet Take 1 tablet by mouth 2 times a day. 11/27/24 12/27/24 Danna Soares MD bimekizumab-bkzx (Bimzelx Autoinjector) 160 mg/mL auto-injector Inject 320 mg under the skin see administration instructions. Take 1 dose (320mg) every 2 weeks for 9 doses (16 weeks), then take 1 dose every 4 weeks. 11/12/24 11/12/25 Brigitte Coy MD chlorhexidine (Hibiclens) 4 % external liquid Apply topically 2 times a day. 11/27/24 Danna Soares MD cholecalciferol, vitamin D3, (VITAMIN D3 ORAL) Take 10,000 Units by mouth once daily. Historical Provider, clindamycin (Cleocin T) 1 % gel Apply topically 2 times a day. Apply to left thigh around incision and drainage site, do not apply directly to surgery site 10/21/24 Frances Watts MD enoxaparin (Lovenox) 40 mg/0.4 mL syringe Inject 0.4 mL (40 mg) under the skin once every 24 hours. 11/27/24 Danna Soares MD fentaNYL (Duragesic) 75 mcg/hr patch Place 1 patch over 72 hours on the skin every 3rd day for 9 days. 11/28/24 12/07/24 Danna Soares MD ferrous sulfate 325 (65 Fe) MG EC tablet Take 1 tablet by mouth once daily with breakfast. Do not crush, chew, or split. Historical Provider, folic acid (Folvite) 1 mg tablet Take 1 tablet (1 mg) by mouth once daily. 11/27/24 Danna Soares MD gabapentin (Neurontin) 300 mg capsule Take 1 capsule (300 mg) by mouth once daily at bedtime. 11/27/24 11/27/25 Danna Soares MD ibuprofen 200 mg tablet Take 3 tablets (600 mg) by mouth every 6 hours if needed for mild pain (1 - 3). Historical Provider, lactose-reduced food (ENSURE PLUS ORAL) Take by mouth once daily in the morning. Historical Provider, lactulose 20 gram/30 mL oral solution Take 30 mL (20 g) by mouth 3 times a day. 11/27/24 01/26/25 Danna Soares MD melatonin 3 mg tablet Take 1 tablet (3 mg) by mouth once daily at bedtime. 11/27/24 11/27/25 Danna Soares MD multivitamin with minerals tablet Take 1 tablet by mouth once daily. 11/28/24 11/28/25 Danna Soares MD mv-min/folic/K1/lycopen/lutein (MEN 50 PLUS MULTIVITAMIN ORAL) Take 1 tablet by mouth once daily. Historical Provider, naloxone (Narcan) 0.4 mg/mL injection Infuse 0.5 mL (0.2 mg) into a venous catheter if needed for opioid reversal. 11/27/24 11/27/25 Danna Soares MD ondansetron (Zofran) 4 mg/2 mL injection Infuse 4 mL (8 mg) into a venous catheter every 8 hours if needed for vomiting or nausea. 11/27/24 11/27/25 Danna Soares MD oxyCODONE (Roxicodone) 20 mg immediate release tablet Take 1 tablet (20 mg) by mouth every 3 hours if needed for severe pain (7 - 10) or moderate pain (4 - 6) for up to 5 days. 11/27/24 12/02/24 Danna Soares MD polyethylene glycol (Glycolax, Miralax) 17 gram packet Take 17 g by mouth once daily. 10/21/24 Frances Watts MD sennosides-docusate sodium (Leda-Colace) 8.6-50 mg tablet Take 2 tablets by mouth 2 times a day. 11/27/24 11/27/25 Danna Soares MD tiZANidine (Zanaflex) 2 mg tablet Take 1 tablet (2 mg) by mouth 3 times a day. 10/21/24 Frances Watts MD varenicline tartrate (Chantix) 0.5 mg tablet Take 1 tablet (0.5 mg) by mouth 2 times a day for 4 days, THEN 2 tablets (1 mg) 2 times a day. Take with full glass of water.. Do not fill before October 22, 2024. 10/22/24 01/19/25 Frances Watts MD Physical Exam General: Resting in bed on his rigth side, no acute distress. HEENT: Normocephalic and atraumatic. EOMI, sclera non-icteric Cardiovascular: RRR, no r/m/g Pulmonary: Lungs clear to auscultation bilaterally. No wheezes/ rhonchi/ rales Extremities: No LE edema. Skin: Left buttock large open wound with clean borders, no purulent discharge or erythema around borders. L thigh lesion is with surrounding erythema and some serous drainage. Neurologic: CN II-XII grossly intact. Moving extremities spontaneously Psych: Pleasant. Appropriate mood and affect Assessment and Plan: Kevan La is a 49 y.o. male with refractory hidradenitis supprativa (HS) not responding to povorcitinib (RCT candidate), apremilast, isotretinoin, adalimumab, infliximab, moxifloxacin/metronidazole, minocyclin, clindamycin, rifampin, augmentin and doxycycline, and invasive SCC who is returning to [facility] 11/10/2024 as a transfer from [facility] regarding gluteal fluid collection. Labs Cr 1.32, WBC 12.0, Hgb 8.0. 12/06 CT pelvis, Large fluid collection present within the proximal left upper thigh measuring 8.5 x 8.4 cm in axial dimension and 16.5 cm in length. Previous CT CAP 11/19, stable size of a left gluteal mass involving the left gluteus randell and left gluteus minimus which currently measures 12.8 x 9.0 cm. On physical exam, Left buttock large open wound with clean borders, no purulent discharge or erythema around borders. L thigh lesion is with surrounding erythema and some serous drainage. Does not endorse pain with palpation. Ordered blood cx and wound cx. Will begin vanc/zosyn for empiric coverage. ACS consulted for possible I&D. #L gluteal SCC iso chronic HS-associated wound and SCC of L thigh (likely a metastatic lesion) #Pelvic, inguinal, retroperitoneal Lymphoadenopathy ::Biopsy of the left thigh nodule next to the main wound (11/12) showed squamous cell carcinoma w/o epidermal attachment, favoring metastatic cutaneous lesion. The two biopsies from the main wound (11/15) both demonstrated invasive SCC carcinoma well and well to moderately differentiated, both without epidermal attachment. :: Follows pt oncologist Dr. Jiang Plan - Please inform Dr. Jiang of patient admission in the AM - Plan for OP PET scan #Cancer and wound related pain ::Supportive Onc consulted Plan - Per supportive onc, cont fentanyl patch. Increase 20mg oxycodone to q3h and add 1.0 mg IV dilaudid q2h PRN for BT pain - Hold gabapentin due to previous PARUL, hold until updated labs #Gluteal wound s/p abscess I&D 10/13 #Refractory hidradenitis suppurativa :: 12/06 CT pelvis, Large fluid collection present within the proximal left upper thigh measuring 8.5 x 8.4 cm in axial dimension and 16.5 cm in length. :: Last dose of Povorcitanib 10/10 :: Tissue Cx from 11/12 growing rare proteus mirabilis, Augmentin susceptible ::Pt was d/stephanie 11/27 with one month of Augmentin Plan - Begin Vanc/Zosyn 12/07- - Hold Augmentin and PO iron iso likely active infection - Follow BCx and Wound Cx, admission CBC, CMP, Mag, ESR, CRP, repeat BCx - Continue Topical Clindamycin BID - Wound care consult - Consult to ACS for possible repeat I&D - Plan for OP derm follow up for Dr. Valentino or Dr. Jiang to start immunotherapy #Hypotension :: appears long standing on chart review, pt confirmed hx of low BPs :: normal TSH Plan - CTM #Hypercalcemia - resolved ::presented with CoCa 12.5; iCa 1.69; 24 hr urine Ca 384 (elevated) ::PTH <6.3 ::PTHrP elevated ::25-OH vit D 79; 1.25-OH vit D 35.9 :: SPEP with M protein spike: monoclonal free lambda light chains in beta region :: UPEP wnl :: Elevated IgA; IgG and IgM wnl :: TSH wnl :: S/p pamidronate 90 mg IV 11/12/24 :: Heme signed off :: AL stain negative Plan - Endocrine signed off with final recs: - if hypercalcemia reoccurs, can give 90 mg iv pamidronate 1-2 weeks after initial admin. (First admin 11/12) #Normocytic Anemia #Folate Deficiency :: Hgb 10.4 at [facility], Hgb 8.8 on admission, Hgb 9.0 today :: 10/10/24: decr TIBC 218 and Fe 24; normal ferritin 259 :: B9 decreased at 4.6, B12 328 (wnl) :: pt consented for blood transfusion on 11/13/24 Plan Hold ferrous gluconate given possible infection #Thrombocytosis :: reactive +/- iron deficiency component Plan - CTM #Nicotine Use Plan - Continue home Chantix F: PRN E: PRN Diet: No diet orders on file A: PIV Lines: no O2: RA DVT ppx: lovenox GI ppx: PPI Code Status: Full Code Contact: Extended Emergency Contact Information Primary Emergency Contact: Omkar La Mobile Relation: Brother Cosigned by Toya Rubio MD at 12/08/2024 5:04 PM EDT documented in this encounter [facility] Work Phone: 12-07-2024 Nurse Note [phone] called report to ambulance is here to pick patient up [facility] 12-07-2024 Nurse Note [phone] called report to ambulance is here to pick patient up 1114 correction RN called regarding updates, updated on patient status/plan of care documented in this encounter [facility] 12-07-2024 Note Attestation signed by Juvenal Mathur MD at 12/07/2024 2:47 PM Patient seen and examined on day of discharge. Please refer to note dated on the day of discharge (12/07/24) for associated attestation, exam and plan. I reviewed documentation and agree with the documented findings and plan of care, unless otherwise noted. Time spent on discharge >30min Internal Medicine: Med Team Discharge Summary Kevan La : 1975 ADMIT DATE: 12/06/2024 DISCHARGE DATE: 12/07/24 PCP: No primary care provider on file. Visit Status: Admission Code Status: FULL CODE Primary Discharge Diagnosis: Left Gluteal Thigh Abscess Leukocytosis Hidradenitis Suppurativa Locally advanced squamous cell carcinoma Secondary Discharge Diagnoses: Chronic Normocytic anemia Reason for Admission & Hospital Course: Kevan La is a 49 y.o. male PMH hydradenitis suppurativa, recent dx squamous cell carcinoma, chronic kidney diseaset hat presented to [facility] on 12/06/2024 with increased drainage from his left hip accompanied by foul order. Upon initial evaluation vital stable. Workup in emergency department was remarkable for WBC 13, Hgb 9.0, ESR 73, CRP 95. CT Pelvis showed large wound in the left upper thigh with large abscess within the posterior compartment of the left upper thigh. General surgery was consulted and recommended transfer to his established general surgery team at [facility]. Transfer was arranged. Patient was maintained on broad-spectrum antibiotics and analgesics during his brief hospital stay. He was transported in stable condition. Disposition: Transfer to Acute Care Hospital Activity: up with assist Diet: Adult diet Regular Discharge Medications: Medication List ASK your doctor about these medications cholecalciferol 200 Unit tablet split tablet Commonly known as: Vitamin D3 ferrous sulfate 325 (65 Fe) MG EC tablet melatonin 3 MG tablet Take 1 tablet (3 mg) by mouth Nightly as needed for sleep. naloxone 0.4 MG/ML injection Commonly known as: Narcan Infuse 1 mL (0.4 mg) into a venous catheter as needed for opioid reversal. ondansetron 4 MG/2ML injection Commonly known as: Zofran Infuse 2 mL (4 mg) into a venous catheter every 6 hours as needed for nausea or vomiting. piperacillin-tazobactam 3-0.375 GM/50ML IVPB Commonly known as: Zosyn Infuse 50 mL (3.375 g) into a venous catheter every 8 hours. vancomycin 1,000 mg in sodium chloride 0.9 % 250 mL IVPB Infuse 1,000 mg into a venous catheter every 12 hours. Consultants General Surgery Procedures Performed None Significant Laboratory/Radiographic Data: WBC 13.0 HgB 9.0 ESR 73 CRP 95.9 Examination: CT pelvis Indication: large left hip and upper thigh wounds, concern for possible osteomyelitis Technique: Axial CT images of the pelvis were obtained at 1 mm intervals following intravenous contrast administration of 75 mL Isovue-370. Sagittal and coronal reconstructions were reviewed as well. Dose reduction was employed with automatic exposure control. Findings: Large fluid collection present within the proximal left upper thigh measuring 8.5 x 8.4 cm in axial dimension and 16.5 cm in length. There is a large overlying wound with cutaneous thickening and subcutaneous edema. There is at least moderate joint space loss of the bilateral sacroiliac joints. Probable few small bladder diverticula present, posteriorly. IMPRESSION: Impression: Large wound along the proximal posterior thigh with large abscess within the posterior compartment of the left upper thigh. There is also presumed cellulitis. No obvious acute cortical erosion. Please note, the marrow is not assessed on a CT examination. Pending Results at Time of Discharge Wound culture, Blood cultures [facility] 12-07-2024 Hospital course Narrative Internal Medicine: Med Team Discharge Summary Kevan La : 1975 ADMIT DATE: 12/06/2024 DISCHARGE DATE: 12/07/24 PCP: No primary care provider on file. Visit Status: Admission Code Status: FULL CODE Primary Discharge Diagnosis: Left Gluteal Thigh Abscess Leukocytosis Hidradenitis Suppurativa Locally advanced squamous cell carcinoma Secondary Discharge Diagnoses: Chronic Normocytic anemia Reason for Admission & Hospital Course: Kevan La is a 49 y.o. male PMH hydradenitis suppurativa, recent dx squamous cell carcinoma, chronic kidney diseaset hat presented to [facility] on 12/06/2024 with increased drainage from his left hip accompanied by foul order. Upon initial evaluation vital stable. Workup in emergency department was remarkable for WBC 13, Hgb 9.0, ESR 73, CRP 95. CT Pelvis showed large wound in the left upper thigh with large abscess within the posterior compartment of the left upper thigh. General surgery was consulted and recommended transfer to his established general surgery team at [facility]. Transfer was arranged. Patient was maintained on broad-spectrum antibiotics and analgesics during his brief hospital stay. He was transported in stable condition. Disposition: Transfer to Acute Care Hospital Activity: up with assist Diet: Adult diet Regular Discharge Medications: Medication List ASK your doctor about these medications cholecalciferol 200 Unit tablet split tablet Commonly known as: Vitamin D3 ferrous sulfate 325 (65 Fe) MG EC tablet melatonin 3 MG tablet Take 1 tablet (3 mg) by mouth Nightly as needed for sleep. naloxone 0.4 MG/ML injection Commonly known as: Narcan Infuse 1 mL (0.4 mg) into a venous catheter as needed for opioid reversal. ondansetron 4 MG/2ML injection Commonly known as: Zofran Infuse 2 mL (4 mg) into a venous catheter every 6 hours as needed for nausea or vomiting. piperacillin-tazobactam 3-0.375 GM/50ML IVPB Commonly known as: Zosyn Infuse 50 mL (3.375 g) into a venous catheter every 8 hours. vancomycin 1,000 mg in sodium chloride 0.9 % 250 mL IVPB Infuse 1,000 mg into a venous catheter every 12 hours. Consultants General Surgery Procedures Performed None Significant Laboratory/Radiographic Data: WBC 13.0 HgB 9.0 ESR 73 CRP 95.9 Examination: CT pelvis Indication: large left hip and upper thigh wounds, concern for possible osteomyelitis Technique: Axial CT images of the pelvis were obtained at 1 mm intervals following intravenous contrast administration of 75 mL Isovue-370. Sagittal and coronal reconstructions were reviewed as well. Dose reduction was employed with automatic exposure control. Findings: Large fluid collection present within the proximal left upper thigh measuring 8.5 x 8.4 cm in axial dimension and 16.5 cm in length. There is a large overlying wound with cutaneous thickening and subcutaneous edema. There is at least moderate joint space loss of the bilateral sacroiliac joints. Probable few small bladder diverticula present, posteriorly. IMPRESSION: Impression: Large wound along the proximal posterior thigh with large abscess within the posterior compartment of the left upper thigh. There is also presumed cellulitis. No obvious acute cortical erosion. Please note, the marrow is not assessed on a CT examination. Pending Results at Time of Discharge Wound culture, Blood cultures Cosigned by Juvenal Mathur MD at 12/07/2024 2:47 PM EDT Associated attestation - Juvenal Mathur MD - 12/07/2024 2:47 PM EDT Patient seen and examined on day of discharge. Please refer to note dated on the day of discharge (12/07/24) for associated attestation, exam and plan. I reviewed documentation and agree with the documented findings and plan of care, unless otherwise noted. Time spent on discharge >30min documented in this encounter [facility] 12-07-2024 Emergency department Note Report to AMAN Galindo. [facility] 12-07-2024 Emergency department Note Report to AMAN Galindo. Patient provided urinal per request. Respirations even and unlabored. No acute distress noted. Report from AMAN Galindo. Report to Josie/AMAN and patient moved to room 9 with all belongings and breakfast tray Patient moving from 43 to 9 now AMAN/Margarita ordered breakfast for the patient per his preference Requested pharmacy to retime Vanc due to 3 hour administration of Zosyn (& both ordered at same time) Patient actively vomiting - provider notified Report given to AMAN Sutton Assume care of pt from AMAN Sutton for lunch coverage Patient requested pillow to place under right hip/leg for comfort. States he got a text message from that he can "early check in" and questioned if transfer was arranged. This nurse advised patient unknown at this time. Pt to CT This RN attempted to obtain another IV access and blood cultures but was unsuccessful Report to AMAN Pittman. Pt presents to ED via EMS from an assisted living facility with c/o a seeping ulcer. EMS reports this has been an ongoing issue. Pt states he is only ambulatory for short distances. Pt is A&Ox4. Emergency Department Encounter [facility] EMERGENCY DEPT Patient: Kevan La : 1975 Date of Evaluation: 12/06/2024 ED Supervising Physician: Fer Hollins MD I independently examined and evaluated Kevan La. This will serve as my Supervisory note and shared attestation. I did perform a substantive portion of the visit including all aspects of the Medical Decision Making. I wore appropriate PPE for the entirety of this encounter. History: In brief, Kevan La is a 49 y.o. male that presents to the emergency department from an ECF with increased wound drainage from the left hip area. Patient has a history of squamous cell cancer. He has developed significant wound to the left buttock area leading towards the left greater trochanter. There is been significantly more drainage. There is been no complaint of fever or chills. Patient notes that he was initially diagnosed in September of this year and he has not been home since. Focused exam: On examination the patient is a middle-age male found lying on a cart. He is alert and oriented. He appears older than stated age. Chest is clear. Normal cardiac exam. Abdomen is soft and nontender. Patient has an extremely large open wound with femur evident in the left lateral gluteal area. The wound is gaping. There is significant erythema as well as drainage. Differential Diagnosis: The patient may very well have osteomyelitis now from this open wound. The open wound is infected. Diagnostic testing undertaken, as well as those tests considered but not ordered: Laboratory work including inflammatory markers will be obtained. X-rays will be obtained. Orthopedic consultation will be obtained with medical admission. ED testing and evaluation will be obtained to help differentiate these diagnostic possibilities and determine the most likely cause. Brief ED course/MDM: In the emergency department intravenous antibiotics are initiated as we are awaiting results of laboratory testing and x-rays. Disposition will be based on results of diagnostic testing, response to therapy, and reassessment. Sources of History: I evaluated other historical sources including previous outpatient records and admission records. Patient is aware of care plan. All diagnostic, treatment, and disposition decisions were made by myself in conjunction with the Resident. I also supervised gomez portions of any procedures performed by the Resident. For all further details of the patient's emergency department visit, please see their documentation. (Comment: Please note this report has been produced using speech recognition software and may contain errors related to that system including errors in grammar, punctuation, and spelling, as well as words and phrases that may be inappropriate. If there are any questions or concerns please feel free to contact the dictating provider for clarification.) Fer Hollins MD [employer] Fer Hollins MD 12/06/24 1120 documented in this encounter [facility] 12-07-2024 Emergency department Note Patient provided urinal per request. Respirations even and unlabored. No acute distress noted. [facility] 12-07-2024 Emergency department Note Report from AMAN Galindo. [facility] 12-07-2024 Note 1114 correction RN called regarding updates, updated on patient status/plan of care [facility] 12-07-2024 Nurse Note 1114 correction RN called regarding updates, updated on patient status/plan of care [facility] 12-07-2024 Emergency department Note Report to Josie/AMAN and patient moved to room 9 with all belongings and breakfast tray [facility] 12-07-2024 Emergency department Note Patient moving from 43 to 9 now [facility] 12-07-2024 Emergency department Note RN/Margarita ordered breakfast for the patient per his preference [facility] 12-07-2024 Emergency department Note Requested pharmacy to retime Vanc due to 3 hour administration of Zosyn (& both ordered at same time) T [facility] 12-07-2024 Consult note Formatting of th is note is different from the original. Images from the original note were not included. Pharmacy Managed Vancomycin Dosing Service Consult Note Consult Date: 12/07/24 Patient Name: Kevan La Allergies: Banana Age: 49 y.o. Sex: male Estimated body mass index is 22.19 kg/m as calculated from the following: Height as of this encounter: 2.007 m (6' 7"). Weight as of this encounter: 89.4 kg (197 lb). DW: 89.4 kg Lab Results Component Value Date CREATININE 1.19 12/06/2024 CREATININE 1.42 (H) 11/09/2024 BUN 15 12/06/2024 BUN 19 11/09/2024 WBC 13.0 (H) 12/06/2024 WBC 13.0 (H) 11/09/2024 Calculated CrCl: 92.5 mL/min (Cockcroft-Gault) Consulted By: Jayro Ashby Infectious Diagnosis: SSTI (AUC Goal 400-600 mg/L*hr) Random Vancomycin Level Due: 12/08/24 Antimicrobials: Patient recently received an antibiotic (last 12 hours) None Assessment/Plan: Doses, serum creatinine, and vancomycin levels interfaced automatically to Backtrace I/O and data has been analyzed and interpreted. Start Vancomycin 1,250 mg every 12 hours based on patient age, weight, renal function, and infectious diagnosis (14 mg/kg). Predicted AUC = 561 mg/L*hr (goal 400-600 mg/L*hr) PAUC = 90% (probability that AUC is >400 mg/L*hr) Pconc = 27% (probability that Ctrough is above 20 mcg/mL (toxicity)) Will assess random level on 12/08/24 and adjust as appropriate. Trend serum creatinine. Orders placed. Thank you for this consult. Please secure text or call with questions. DATE: 12/07/24 TIME: 6:11 AM Nicola Grace RPh Clinical Pharmacist Available via Secure Chat T [facility] 12-07-2024 Consult note Formatting of th is note is different from the original. Images from the original note were not included. Pharmacy Managed Vancomycin Dosing Service Consult Note Consult Date: 12/07/24 Patient Name: Kevan La Allergies: Banana Age: 49 y.o. Sex: male Estimated body mass index is 22.19 kg/m as calculated from the following: Height as of this encounter: 2.007 m (6' 7"). Weight as of this encounter: 89.4 kg (197 lb). DW: 89.4 kg Lab Results Component Value Date CREATININE 1.19 12/06/2024 CREATININE 1.42 (H) 11/09/2024 BUN 15 12/06/2024 BUN 19 11/09/2024 WBC 13.0 (H) 12/06/2024 WBC 13.0 (H) 11/09/2024 Calculated CrCl: 92.5 mL/min (Cockcroft-Gault) Consulted By: Jayro Ashby Infectious Diagnosis: SSTI (AUC Goal 400-600 mg/L*hr) Random Vancomycin Level Due: 12/08/24 Antimicrobials: Patient recently received an antibiotic (last 12 hours) None Assessment/Plan: Doses, serum creatinine, and vancomycin levels interfaced automatically to Backtrace I/O and data has been analyzed and interpreted. Start Vancomycin 1,250 mg every 12 hours based on patient age, weight, renal function, and infectious diagnosis (14 mg/kg). Predicted AUC = 561 mg/L*hr (goal 400-600 mg/L*hr) PAUC = 90% (probability that AUC is >400 mg/L*hr) Pconc = 27% (probability that Ctrough is above 20 mcg/mL (toxicity)) Will assess random level on 12/08/24 and adjust as appropriate. Trend serum creatinine. Orders placed. Thank you for this consult. Please secure text or call with questions. DATE: 12/07/24 TIME: 6:11 AM Nicola Grace RPh Clinical Pharmacist Available via Secure Chat documented in this encounter [facility] 12-07-2024 History and physical note Internal Medicine: Med Team Initial History and Physical Kevan La : 1975(49 y.o.) Date: December 07, 2024 TEAM: B Attending: Dr. Mathur Subjective: Chief Complaint: Draining abscess Patient presents to the emergency department from an assisted living facility with increasing drainage from the left hip accompanied by a foul odor. Patient has a history of squamous cell cancer and hidradenitis suppurativa. He has developed significant wound to the left buttock area leading towards the left greater trochanter. In the emergency department patient's workup included a normal BMP. CBC showed elevated white blood cell count of 13, hemoglobin of 9, platelets elevated at 681, ESR of 73, C-reactive protein of 95.9. Urinalysis was unremarkable. ECG was unremarkable. Patient had a CT scan of the pelvis with contrast revealing a large wound in the left upper thigh with presumed cellulitis. Blood cultures are pending. Wound cultures are also currently pending. Patient has been managed in the past for his at bedtime and squamous cell carcinoma by the general surgery team at [facility]. He is scheduled to be transferred to this location so they can further manage this condition. Until that time he will be admitted to the medical floor and managed accordingly. Morning examination patient was doing well. No significant events overnight. Has not used much pain medication. Agreeable to plan. Review of Systems Constitutional: Negative for activity change, appetite change, fatigue and fever. HENT: Negative for nosebleeds. Respiratory: Negative for shortness of breath. Cardiovascular: Negative for chest pain and leg swelling. Gastrointestinal: Negative for blood in stool, diarrhea, nausea and vomiting. Genitourinary: Negative for hematuria. Musculoskeletal: Positive for arthralgias. Skin: Positive for wound. Neurological: Negative for weakness, light-headedness and headaches. Hematological: Does not bruise/bleed easily. Psychiatric/Behavioral: Negative for behavioral problems. No past medical history on file. No past surgical history on file. No family history on file. Social History Tobacco Use Smoking Status Not on file Smokeless Tobacco Not on file Social History Substance and Sexual Activity Alcohol Use Not on file Social History Substance and Sexual Activity Drug Use Not on file Allergies Allergen Reactions Banana Itching Prior to Admission medications Medication Sig Start Date End Date Taking? Authorizing Provider cholecalciferol (Vitamin D3) 200 Unit tablet split tablet Take 10,000 Units by mouth daily. Historical Provider, ferrous sulfate 325 (65 Fe) MG EC tablet Take 1 tablet by mouth daily. Historical Provider, melatonin 3 MG tablet Take 1 tablet (3 mg) by mouth Nightly as needed for sleep. 11/09/24 Samson Farrar MD naloxone (Narcan) 0.4 MG/ML injection Infuse 1 mL (0.4 mg) into a venous catheter as needed for opioid reversal. 11/09/24 Samson Farrar MD ondansetron (Zofran) 4 MG/2ML injection Infuse 2 mL (4 mg) into a venous catheter every 6 hours as needed for nausea or vomiting. 11/09/24 Samson Farrar MD piperacillin-tazobactam (Zosyn) IVPB 3.375 g in 50 mL (premix) Infuse 50 mL (3.375 g) into a venous catheter every 8 hours. 11/09/24 Samson Farrar MD vancomycin 1,000 mg in sodium chloride 0.9 % 250 mL IVPB Infuse 1,000 mg into a venous catheter every 12 hours. 11/10/24 Samson Farrar MD Objective: Vitals: 12/07/24 0500 12/07/24 0815 12/07/24 0845 12/07/24 0900 BP: 102/60 108/62 77/53 Pulse: 77 63 68 70 Resp: 16 Temp: SpO2: 98% 98% 98% 96% Weight: Height: Physical Exam Constitutional: General: He is not in acute distress. Appearance: He is not ill-appearing. HENT: Head: Normocephalic and atraumatic. Right Ear: Tympanic membrane normal. Left Ear: Tympanic membrane normal. Eyes: Extraocular Movements: Extraocular movements intact. Cardiovascular: Rate and Rhythm: Normal rate and regular rhythm. Pulses: Normal pulses. Heart sounds: Normal heart sounds. No murmur heard. Pulmonary: Effort: Pulmonary effort is normal. No respiratory distress. Breath sounds: Normal breath sounds. No wheezing. Chest: Chest wall: No tenderness. Abdominal: General: Abdomen is flat. Bowel sounds are normal. There is no distension. Palpations: Abdomen is soft. Tenderness: There is no abdominal tenderness. There is no right CVA tenderness, left CVA tenderness or guarding. Skin: General: Skin is warm. Coloration: Skin is not jaundiced. Findings: Bruising, erythema and lesion present. Neurological: General: No focal deficit present. Mental Status: He is oriented to person, place, and time. Mental status is at baseline. Sensory: No sensory deficit. Motor: No weakness. Psychiatric: Mood and Affect: Mood normal. Behavior: Behavior normal. Thought Content: Thought content normal. Judgment: Judgment normal. Select Recent Labs BMP: Recent Labs 12/06/24 1157 12/07/24 0728 NA 141 141 K 4.3 3.9 CL 110* 113* CO2 23 21* BUN 15 14 CREATININE 1.19 1.17 CALCIUM 10.0 9.4 MG -- 1.8 PHOS -- 2.5 LFTs: Recent Labs 12/06/24 1157 12/06/24 1217 12/07/24 0728 AST 17 -- 10 ALT 7 -- <6 PROT 7.4 -- 6.6 ALBUMIN 2.7* -- 2.5* BILITOT 0.2 -- 0.3 BILIRUBINU -- Negative -- ALKPHOS 63 -- 57 Glucose: Recent Labs 12/06/24 1157 12/07/24 0728 GLUCOSE 92 96 Procal: No results for input(s): "PROCAL" in the last 72 hours. CBC: Recent Labs 12/06/24 1157 12/07/24 0728 WBC 13.0* 12.0* HGB 9.0* 8.4* HCT 28.6* 26.4* PLT 681* 609* MCV 81.7 80.7 RDW 16.9* 16.6* ABGs: No results for input(s): "PHART", "PFW7ARL", "PO2ART", "FEF7DXW", "SO2ART", "A8QECOCR" in the last 72 hours. Lactic Acid: No results for input(s): "LACTATE" in the last 72 hours. INR: No results for input(s): "INR" in the last 72 hours. Cardiac Injury Profile: No results for input(s): "CKTOTAL", "CKMB", "TROPONINI", "TROPHSBASE", "TROPHS2", "BNP" in the last 72 hours. Labs in Last 3 months: Lab Results Component Value Date TSH 0.84 11/08/2024 Assessment and Plan: #Hidradenitis suppurativa w/ concern for cellulitis #Locally advanced Squamous cell carcinoma #Purulent draining abscess #Leukocytosis -Patient has documented squamous cell carcinoma from dermatology at [facility] -CT scan of abdomen and pelvis showing abscess and suspected cellulitis -WBC of 13.0 Plan -Patient will be transferred to for further management of condition -Continue vancomycin IV infusion every 12 hours -Continue Zosyn IV infusion every 8 hours -Pain control oxycodone tablet 5 mg every 6 hours as needed -Awaiting wound culture results #Elevated PTHrP #MGUS #Normocytic anemia -Currently has a calcium of 10.0 which is wnl -Hgb of 9 Plan -Labs daily - Goals of Care: FULL CODE - DVT Prophylaxis: Lovenox 40 q24hr - CrCl >30 - GI Prophylaxis: Not Indicated - Diet: General - BMI Classification: Body mass index is 22.19 kg/m . Normal (BMI 18.5-24.9) - Disposition: Admit to F. - Given the signs and symptoms associated with his primary diagnosis in the setting of his comorbid conditions, he is expected to require >48 hrs of hospital care (i.e. inpatient level care). Cosigned by Juvenal Mathur MD at 12/07/2024 1:17 PM EDT Associated attestation - Juvenal Mathur MD - 12/07/2024 1:17 PM EDT I saw and evaluated the patient. I agree with the findings and plan of care as documented in the resident's note, except as noted in blue. Patient seen and examined personally for the first time this admission by me 12/07/24 - his case is new to me. (Date of Sevice: 12/07/24) Gomez Changes to Care Plan: Post-rounds addendum: Severe HS with open and draining wounds on L lateral and posterior leg and buttock. CT reviewed with evidence of large abscess without obvious evidence of bone involvement. Previously evaluated by our surgery team and felt more appropriate to follow at , who reportedly has been managing his HS with clinical trial therapies and are planning for surgical correction. Agree to continue broad-spectrum abx at this time to cover for complex SSTI though he will need surgical intervention for drainage of his large abscess and likely extensive debridement of affected tissue, follow wound and bcx data. We will continue to treat his pain and can liberate his pain regimen to better address if needed. He remains hemodynamically and otherwise clinically stable. 3. Drug therapy requiring intensive monitoring for toxicity: Vancomycin - monitoring serum creatinine 7AM-5PM: contact resident on "[employer] [facility]" (find by hovering over attending's name on left side of patient's chart) 5PM-7AM: contact [employer] Phone: 12-07-2024 Note Attestation signed by Juvenal Mathur MD at 12/07/2024 1:17 PM I saw and evaluated the patient. I agree with the findings and plan of care as documented in the resident's note, except as noted in blue. Patient seen and examined personally for the first time this admission by me 12/07/24 - his case is new to me. (Date of Sevice: 12/07/24) Gomez Changes to Care Plan: Post-rounds addendum: Severe HS with open and draining wounds on L lateral and posterior leg and buttock. CT reviewed with evidence of large abscess without obvious evidence of bone involvement. Previously evaluated by our surgery team and felt more appropriate to follow at , who reportedly has been managing his HS with clinical trial therapies and are planning for surgical correction. Agree to continue broad-spectrum abx at this time to cover for complex SSTI though he will need surgical intervention for drainage of his large abscess and likely extensive debridement of affected tissue, follow wound and bcx data. We will continue to treat his pain and can liberate his pain regimen to better address if needed. He remains hemodynamically and otherwise clinically stable. 3. Drug therapy requiring intensive monitoring for toxicity: Vancomycin - monitoring serum creatinine 7AM-5PM: contact resident on "[facility]" (find by hovering over attending's name on left side of patient's chart) 5PM-7AM: contact 2 res Internal Medicine: Med Team Initial History and Physical Kevan La : 1975(49 y.o.) Date: December 07, 2024 TEAM: Isidro Attending: Dr. Matuhr Subjective: Chief Complaint: Draining abscess Patient presents to the emergency department from an assisted living facility with increasing drainage from the left hip accompanied by a foul odor. Patient has a history of squamous cell cancer and hidradenitis suppurativa. He has developed significant wound to the left buttock area leading towards the left greater trochanter. In the emergency department patient's workup included a normal BMP. CBC showed elevated white blood cell count of 13, hemoglobin of 9, platelets elevated at 681, ESR of 73, C-reactive protein of 95.9. Urinalysis was unremarkable. ECG was unremarkable. Patient had a CT scan of the pelvis with contrast revealing a large wound in the left upper thigh with presumed cellulitis. Blood cultures are pending. Wound cultures are also currently pending. Patient has been managed in the past for his at bedtime and squamous cell carcinoma by the general surgery team at [facility]. He is scheduled to be transferred to this location so they can further manage this condition. Until that time he will be admitted to the medical floor and managed accordingly. Morning examination patient was doing well. No significant events overnight. Has not used much pain medication. Agreeable to plan. Review of Systems Constitutional: Negative for activity change, appetite change, fatigue and fever. HENT: Negative for nosebleeds. Respiratory: Negative for shortness of breath. Cardiovascular: Negative for chest pain and leg swelling. Gastrointestinal: Negative for blood in stool, diarrhea, nausea and vomiting. Genitourinary: Negative for hematuria. Musculoskeletal: Positive for arthralgias. Skin: Positive for wound. Neurological: Negative for weakness, light-headedness and headaches. Hematological: Does not bruise/bleed easily. Psychiatric/Behavioral: Negative for behavioral problems. No past medical history on file. No past surgical history on file. No family history on file. Social History Tobacco Use Smoking Status Not on file Smokeless Tobacco Not on file Social History Substance and Sexual Activity Alcohol Use Not on file Social History Substance and Sexual Activity Drug Use Not on file Allergies Allergen Reactions Banana Itching Prior to Admission medications Medication Sig Start Date End Date Taking? Authorizing Provider cholecalciferol (Vitamin D3) 200 Unit tablet split tablet Take 10,000 Units by mouth daily. Historical Provider, ferrous sulfate 325 (65 Fe) MG EC tablet Take 1 tablet by mouth daily. Historical Provider, melatonin 3 MG tablet Take 1 tablet (3 mg) by mouth Nightly as needed for sleep. 11/09/24 Samson Farrar MD naloxone (Narcan) 0.4 MG/ML injection Infuse 1 mL (0.4 mg) into a venous catheter as needed for opioid reversal. 11/09/24 Samson Farrar MD ondansetron (Zofran) 4 MG/2ML injection Infuse 2 mL (4 mg) into a venous catheter every 6 hours as needed for nausea or vomiting. 11/09/24 Samson Farrar MD piperacillin-tazobactam (Zosyn) IVPB 3.375 g in 50 mL (premix) Infuse 50 mL (3.375 g) into a (more content not included)... [facility] 12-07-2024 History and physical note Internal Medicine: Med Team Initial History and Physical Kevan La : 1975(49 y.o.) Date: December 07, 2024 TEAM: B Attending: Dr. Mathur Subjective: Chief Complaint: Draining abscess Patient presents to the emergency department from an assisted living facility with increasing drainage from the left hip accompanied by a foul odor. Patient has a history of squamous cell cancer and hidradenitis suppurativa. He has developed significant wound to the left buttock area leading towards the left greater trochanter. In the emergency department patient's workup included a normal BMP. CBC showed elevated white blood cell count of 13, hemoglobin of 9, platelets elevated at 681, ESR of 73, C-reactive protein of 95.9. Urinalysis was unremarkable. ECG was unremarkable. Patient had a CT scan of the pelvis with contrast revealing a large wound in the left upper thigh with presumed cellulitis. Blood cultures are pending. Wound cultures are also currently pending. Patient has been managed in the past for his at bedtime and squamous cell carcinoma by the general surgery team at [facility]. He is scheduled to be transferred to this location so they can further manage this condition. Until that time he will be admitted to the medical floor and managed accordingly. Morning examination patient was doing well. No significant events overnight. Has not used much pain medication. Agreeable to plan. Review of Systems Constitutional: Negative for activity change, appetite change, fatigue and fever. HENT: Negative for nosebleeds. Respiratory: Negative for shortness of breath. Cardiovascular: Negative for chest pain and leg swelling. Gastrointestinal: Negative for blood in stool, diarrhea, nausea and vomiting. Genitourinary: Negative for hematuria. Musculoskeletal: Positive for arthralgias. Skin: Positive for wound. Neurological: Negative for weakness, light-headedness and headaches. Hematological: Does not bruise/bleed easily. Psychiatric/Behavioral: Negative for behavioral problems. No past medical history on file. No past surgical history on file. No family history on file. Social History Tobacco Use Smoking Status Not on file Smokeless Tobacco Not on file Social History Substance and Sexual Activity Alcohol Use Not on file Social History Substance and Sexual Activity Drug Use Not on file Allergies Allergen Reactions Banana Itching Prior to Admission medications Medication Sig Start Date End Date Taking? Authorizing Provider cholecalciferol (Vitamin D3) 200 Unit tablet split tablet Take 10,000 Units by mouth daily. Historical Provider, ferrous sulfate 325 (65 Fe) MG EC tablet Take 1 tablet by mouth daily. Historical Provider, melatonin 3 MG tablet Take 1 tablet (3 mg) by mouth Nightly as needed for sleep. 11/09/24 Samson Farrar MD naloxone (Narcan) 0.4 MG/ML injection Infuse 1 mL (0.4 mg) into a venous catheter as needed for opioid reversal. 11/09/24 Samson Farrar MD ondansetron (Zofran) 4 MG/2ML injection Infuse 2 mL (4 mg) into a venous catheter every 6 hours as needed for nausea or vomiting. 11/09/24 Samson Farrar MD piperacillin-tazobactam (Zosyn) IVPB 3.375 g in 50 mL (premix) Infuse 50 mL (3.375 g) into a venous catheter every 8 hours. 11/09/24 Samson Farrar MD vancomycin 1,000 mg in sodium chloride 0.9 % 250 mL IVPB Infuse 1,000 mg into a venous catheter every 12 hours. 11/10/24 Samson Farrar MD Objective: Vitals: 12/07/24 0500 12/07/24 0815 12/07/24 0845 12/07/24 0900 BP: 102/60 108/62 77/53 Pulse: 77 63 68 70 Resp: 16 Temp: SpO2: 98% 98% 98% 96% Weight: Height: Physical Exam Constitutional: General: He is not in acute distress. Appearance: He is not ill-appearing. HENT: Head: Normocephalic and atraumatic. Right Ear: Tympanic membrane normal. Left Ear: Tympanic membrane normal. Eyes: Extraocular Movements: Extraocular movements intact. Cardiovascular: Rate and Rhythm: Normal rate and regular rhythm. Pulses: Normal pulses. Heart sounds: Normal heart sounds. No murmur heard. Pulmonary: Effort: Pulmonary effort is normal. No respiratory distress. Breath sounds: Normal breath sounds. No wheezing. Chest: Chest wall: No tenderness. Abdominal: General: Abdomen is flat. Bowel sounds are normal. There is no distension. Palpations: Abdomen is soft. Tenderness: There is no abdominal tenderness. There is no right CVA tenderness, left CVA tenderness or guarding. Skin: General: Skin is warm. Coloration: Skin is not jaundiced. Findings: Bruising, erythema and lesion present. Neurological: General: No focal deficit present. Mental Status: He is oriented to person, place, and time. Mental status is at baseline. Sensory: No sensory deficit. Motor: No weakness. Psychiatric: Mood and Affect: Mood normal. Behavior: Behavior normal. Thought Content: Thought content normal. Judgment: Judgment normal. Select Recent Labs BMP: Recent Labs 12/06/24 1157 12/07/24 0728 NA 141 141 K 4.3 3.9 CL 110* 113* CO2 23 21* BUN 15 14 CREATININE 1.19 1.17 CALCIUM 10.0 9.4 MG -- 1.8 PHOS -- 2.5 LFTs: Recent Labs 12/06/24 1157 12/06/24 1217 12/07/24 0728 AST 17 -- 10 ALT 7 -- <6 PROT 7.4 -- 6.6 ALBUMIN 2.7* -- 2.5* BILITOT 0.2 -- 0.3 BILIRUBINU -- Negative -- ALKPHOS 63 -- 57 Glucose: Recent Labs 12/06/24 1157 12/07/24 0728 GLUCOSE 92 96 Procal: No results for input(s): "PROCAL" in the last 72 hours. CBC: Recent Labs 12/06/24 1157 12/07/24 0728 WBC 13.0* 12.0* HGB 9.0* 8.4* HCT 28.6* 26.4* PLT 681* 609* MCV 81.7 80.7 RDW 16.9* 16.6* ABGs: No results for input(s): "PHART", "MSD3ZDE", "PO2ART", "GNP5ZPZ", "SO2ART", "I5FHBZIL" in the last 72 hours. Lactic Acid: No results for input(s): "LACTATE" in the last 72 hours. INR: No results for input(s): "INR" in the last 72 hours. Cardiac Injury Profile: No results for input(s): "CKTOTAL", "CKMB", "TROPONINI", "TROPHSBASE", "TROPHS2", "BNP" in the last 72 hours. Labs in Last 3 months: Lab Results Component Value Date TSH 0.84 11/08/2024 Assessment and Plan: #Hidradenitis suppurativa w/ concern for cellulitis #Locally advanced Squamous cell carcinoma #Purulent draining abscess #Leukocytosis -Patient has documented squamous cell carcinoma from dermatology at [facility] -CT scan of abdomen and pelvis showing abscess and suspected cellulitis -WBC of 13.0 Plan -Patient will be transferred to for further management of condition -Continue vancomycin IV infusion every 12 hours -Continue Zosyn IV infusion every 8 hours -Pain control oxycodone tablet 5 mg every 6 hours as needed -Awaiting wound culture results #Elevated PTHrP #MGUS #Normocytic anemia -Currently has a calcium of 10.0 which is wnl -Hgb of 9 Plan -Labs daily - Goals of Care: FULL CODE - DVT Prophylaxis: Lovenox 40 q24hr - CrCl >30 - GI Prophylaxis: Not Indicated - Diet: General - BMI Classification: Body mass index is 22.19 kg/m . Normal (BMI 18.5-24.9) - Dis[facility]: [facility] - Given the signs and symptoms associated with his primary diagnosis in the setting of his comorbid conditions, he is expected to require >48 hrs of hospital care (i.e. inpatient level care). Cosigned by Juvenal Mathur MD at 12/07/2024 1:17 PM EDT Associated attestation - Juvenal Mathur MD - 12/07/2024 1:17 PM EDT I saw and evaluated the patient. I agree with the findings and plan of care as documented in the resident's note, except as noted in blue. Patient seen and examined personally for the first time this admission by me 12/07/24 - his case is new to me. (Date of Sevice: 12/07/24) Gomez Changes to Care Plan: Post-rounds addendum: Severe HS with open and draining wounds on L lateral and posterior leg and buttock. CT reviewed with evidence of large abscess without obvious evidence of bone involvement. Previously evaluated by our surgery team and felt more appropriate to follow at , who reportedly has been managing his HS with clinical trial therapies and are planning for surgical correction. Agree to continue broad-spectrum abx at this time to cover for complex SSTI though he will need surgical intervention for drainage of his large abscess and likely extensive debridement of affected tissue, follow wound and bcx data. We will continue to treat his pain and can liberate his pain regimen to better address if needed. He remains hemodynamically and otherwise clinically stable. 3. Drug therapy requiring intensive monitoring for toxicity: Vancomycin - monitoring serum creatinine 7AM-5PM: contact resident on "[facility]" (find by hovering over attending's name on left side of patient's chart) 5PM-7AM: contact [facility] res documented in this encounter [facility] 12-07-2024 Emergency department Note Patient actively vomiting - provider notified [facility] 12-07-2024 Emergency department Note Report given to AMAN Sutton [facility] 12-06-2024 Emergency department Note Assume care of pt from AMAN Sutton for lunch coverage [facility] 12-06-2024 Emergency department Note Patient requested pillow to place under right hip/leg for comfort. States he got a text message from that he can "early check in" and questioned if transfer was arranged. This nurse advised patient unknown at this time. [facility] 12-06-2024 Emergency department Note Pt to CT [facility] 12-06-2024 Emergency department Note This RN attempted to obtain another IV access and blood cultures but was unsuccessful [facility] 12-06-2024 Emergency department Note Report to AMAN Pittman. [facility] 12-06-2024 Emergency department Note Pt presents to ED via EMS from an assisted living facility with c/o a seeping ulcer. EMS reports this has been an ongoing issue. Pt states he is only ambulatory for short distances. Pt is A&Ox4. [facility] 12-06-2024 Physician Emergency department Note Emergency Department Encounter [facility] EMERGENCY DEPT Patient: Kevan La : 1975 Date of Evaluation: 12/06/2024 ED Supervising Physician: Fer Hollins MD I independently examined and evaluated Kevan La. This will serve as my Supervisory note and shared attestation. I did perform a substantive portion of the visit including all aspects of the Medical Decision Making. I wore appropriate PPE for the entirety of this encounter. History: In brief, Kevan La is a 49 y.o. male that presents to the emergency department from an ECF with increased wound drainage from the left hip area. Patient has a history of squamous cell cancer. He has developed significant wound to the left buttock area leading towards the left greater trochanter. There is been significantly more drainage. There is been no complaint of fever or chills. Patient notes that he was initially diagnosed in September of this year and he has not been home since. Focused exam: On examination the patient is a middle-age male found lying on a cart. He is alert and oriented. He appears older than stated age. Chest is clear. Normal cardiac exam. Abdomen is soft and nontender. Patient has an extremely large open wound with femur evident in the left lateral gluteal area. The wound is gaping. There is significant erythema as well as drainage. Differential Diagnosis: The patient may very well have osteomyelitis now from this open wound. The open wound is infected. Diagnostic testing undertaken, as well as those tests considered but not ordered: Laboratory work including inflammatory markers will be obtained. X-rays will be obtained. Orthopedic consultation will be obtained with medical admission. ED testing and evaluation will be obtained to help differentiate these diagnostic possibilities and determine the most likely cause. Brief ED course/MDM: In the emergency department intravenous antibiotics are initiated as we are awaiting results of laboratory testing and x-rays. Disposition will be based on results of diagnostic testing, response to therapy, and reassessment. Sources of History: I evaluated other historical sources including previous outpatient records and admission records. Patient is aware of care plan. All diagnostic, treatment, and disposition decisions were made by myself in conjunction with the Resident. I also supervised gomez portions of any procedures performed by the Resident. For all further details of the patient's emergency department visit, please see their documentation. (Comment: Please note this report has been produced using speech recognition software and may contain errors related to that system including errors in grammar, punctuation, and spelling, as well as words and phrases that may be inappropriate. If there are any questions or concerns please feel free to contact the dictating provider for clarification.) Fer Hollins MD [employer] Fer Hollins MD 12/06/24 1120 [employer] Phone: 11-29-2024 History of Present illness Narrative Images from the original note were not included. CUTANEOUS ONCOLOGY: INITIAL CONSULTATION Diagnosis: newly diagnosed locally advanced SCC, and myeloid neoplasm- both pending further workup Primary site location: HPI: Kevan La is a 49 y.o. year old male with a history of HS, who presents today to clinic for initial evaluation of squamous cell carcinoma. Diagnosis was found after being admitted to the hospital for hypercalcemia requiring IVF, palmindronate. PMH: History of non-melanoma skin cancers: none History of other malignancies: monclonal gammopathy, still being worked up Family history: History of atypical or dysplastic nevi: no History of an unusually large number of nevi: no History of melanoma in situ or malignant melanoma: no History of non-melanoma skin cancers:: mom had breast cancer History of other malignancies: no ROS: Review of Systems - Oncology PE: Physical Exam Labs: 11/27/24 10:37 GLUCOSE 139 (H) SODIUM 136 POTASSIUM 4.0 CHLORIDE 99 Bicarbonate 27 Anion Gap 14 Blood Urea Nitrogen 10 Creatinine 1.38 (H) EGFR 62 Calcium 9.5 PHOSPHORUS 2.5 Albumin 3.2 (L) MAGNESIUM 1.75 WBC 12.3 (H) nRBC 0.0 RBC 2.96 (L) HEMOGLOBIN 7.9 (L) HEMATOCRIT 25.0 (L) MCV 85 MCH 26.7 MCHC 31.6 (L) RED CELL DISTRIBUTION WIDTH 16.4 (H) Platelets 715 (H) Neutrophils % 72.3 Immature Granulocytes %, Automated 0.3 Lymphocytes % 14.5 Monocytes % 7.5 Eosinophils % 4.7 Basophils % 0.7 Neutrophils Absolute 8.88 (H) Immature Granulocytes Absolute, Automated 0.04 Lymphocytes Absolute 1.78 Monocytes Absolute 0.92 Eosinophils Absolute 0.58 Basophils Absolute 0.09 11/11/24 05:58 PTH Related Peptide 12 (H) Pathology 11/12/24 A. SKIN, THIGH, PUNCH BIOPSY: INVASIVE SQUAMOUS CELL CARCINOMA, WELL DIFFERENTIATED, EXTENDING TO THE DEEP AND THE PERIPHERAL MARGINS IN THESE PLANES OF SECTION (SEE COMMENT): Comment: A definitive epidermal attachment is not appreciated in the available portions. While a primary cutaneous squamous cell carcinoma is favored, a metastatic squamous cell carcinoma cannot be excluded in the portions available. B. SKIN, LEFT BUTTOCKS, PUNCH BIOPSY: ACANTHOSIS AND LYMPHOPLASMACYTIC INFILTRATE (SEE COMMENT): Comment: The findings are not specific and may be seen adjacent to an area of chronic ulceration or prior trauma. 11/15/24 A. SKIN, ULCER PROXIMAL, PUNCH BIOPSY: INVASIVE SQUAMOUS CELL CARCINOMA, WELL DIFFERENTIATED, PRESENT ON THE PERIPHERAL MARGIN, SEE NOTE. Note: No epidermal attachment is seen. A primary squamous cell carcinoma is favored although the lack of epidermal attachment raises the possibility of a metastatic squamous cell carcinoma. B. SKIN, ULCER DISTAL, PUNCH BIOPSY: INVASIVE SQUAMOUS CELL CARCINOMA, WELL TO MODERATELY DIFFERENTIATED, PRESENT ON THE DEEP AND PERIPHERAL MARGIN, SEE NOTE. Imaging: CT C/A/P: 1. Stable size of a left gluteal mass involving left gluteus randell and minimus which is in continuity with a more inferior exophytic posterior nodule, in keeping with patient's known pathological diagnosis of squamous cell carcinoma. 2. There are enlarged/prominent left superficial inguinal, left pelvic sidewall, and retroperitoneal lymph nodes extending superiorly to the level of the common iliac arteries. These may represent sites of metastatic disease or may be reactive secondary to patient's history of hidradenitis suppurativa. PET-CT is recommended to assist in further delineation. 3. Soft tissue tract within the medial left gluteal wall with apparent extension to the anus which may represent a perianal fistula. MRI can be considered for further evaluation. 4. There is a 4 mm pulmonary nodule within left upper lobe of indeterminate chronicity. Attention on follow-up examinations is recommended. 5. Mwsn-[id number]-pkbl-right skin thickening extending from the sacral region to the proximal thigh, in keeping with patient's background of hydradenitis suppurativa. 6. Aavk-jm-vbaloixp upper lobe predominant centrilobular and paraseptal emphysema. Very high mutational burden - still try surgery/radiation first Assessment: locally advanced squamous cell carcinoma Plan: patient is in SNF right now, slowly gaining strength. As far as his SCC goes, he is a candidate for cemiplimab given how he has multiple, biopsy confirmed spots of SCC that would not be amenable to a surgery at this time. He was assessed by surgery and RT while inpatient. We went over treatment schedule, efficacy, response assessment, potential BERTHA. We will send for labs today. Place orders for cemiplimab. He will sign consent formally on the day of therapy. While I do think a biopsy would be helpful to confirm staging for this patient, I do not want to delay therapy anymore given his hypercalcemia of malignancy (PTHrp elevated). We can always biopsy the LN/lesions if they do not respond to therapy. He is agreeable to this. There are cases of patients with HS and SCC treated with IO that had improvement with both. He is on trial [facility] Hughes and Dr. Hutchinson. I will message them in anticipation of start on 12/13. He was also found incidentally to have MGUS while inpatient, and was recommended hematology fu. This was not scheduled and so I will place an order today. Supportive oncology on board. He has an apt with [facility] on 12/17/24. He also needs a PCP, He has one picked out and does not need a referral. Kevan La understands the plan and has no further questions. he will contact us if there are any new concerns or change in clinical picture. Sreedhar Jiang MD Attending Physician [facility] Shove Upcustomer engineer [facility] [employer] documented in this encounter [facility] Work Phone: 11-27-2024 History of Present illness Narrative Auth approved. Per medical team, patient is medically ready to discharge. [facility] ready to accept today. Transport confirmed for 5pm today with [facility] ([phone]). Report: [phone]. Nurse, medical team, SNF, and patient aware of and in agreement to discharge plan. Blue sheet provided to nursing unit. Jami Erwin RN, TCC Nutrition Follow Up Assessment: Patient is a 49 y.o. male with L gluteal abscess and newly diagnosed peripheral nodule and tissue of SCC. Nutrition History: Food and Nutrient History: Met with patient who reports drinking his coffee and orange juice this morning and getting interrupted. States when he tried eating he became nauseous and "threw up". Lunch tray arrived during interview - chicken noodle soup, pudding, ice cream and Ensure. Patient states he only orders a light lunch because he typically doesn't eat lunch. Usually orders an entree at dinner. Overall, has suboptimal PO intake. He doesn't like the Magic Cup. "It's the consistency". Patient has tried the [place], but states it melts before he gets to it. Agreeable to increasing Ensure to BID. Food Allergy: (Banana and avocado.) Anthropometrics: Height: 200.6 cm (6' 6.98") Weight: 104 kg (230 lb) BMI (Calculated): 25.93 IBW/kg (Dietitian Calculated): 100 kg Percent of IBW: 104.3 % No new weights to assess. Nutrition Focused Physical Exam Findings: Subcutaneous Fat Loss: Orbital Fat Pads: Mild-Moderate (slight dark circles and slight hollowing) Buccal Fat Pads: Mild-Moderate (flat cheeks, minimal bounce) Triceps: Mild-Moderate (less than ample fat tissue) Ribs: Defer Muscle Wasting: Temporalis: Mild-Moderate (slight depression) Pectoralis (Clavicular Region): Mild-Moderate (some protrusion of clavicle) Deltoid/Trapezius: Well nourished (rounded appearance at arm, shoulder, neck) Interosseous: Mild-Moderate (slightly depressed area between thumb and forefinger) Trapezius/Infraspinatus/Supraspin atus (Scapular Region): Defer Quadriceps: Defer Gastrocnemius: Defer Edema: (B/L LE nonpitting) Physical Findings: Skin: Positive (Chronic left thigh/hip hidradenitis with deep abscess/myositis.) Digestive System Findings: Constipation, Nausea, Vomiting Mouth Findings: (None.) Nutrition Significant Labs: BG POCT trend: , Renal Lab Trend: Results from last 7 days Lab Units 11/26/24 0546 11/25/24 0642 11/24/24 0546 11/23/24 0639 POTASSIUM mmol/L 4.4 3.6 3.8 4.0 PHOSPHORUS mg/dL 2.9 2.7 3.3 3.0 SODIUM mmol/L 138 137 136 135* MAGNESIUM mg/dL 2.07 1.95 1.88 1.94 EGFR mL/min/1.73m*2 72 67 62 63 BUN mg/dL 10 10 15 14 CREATININE mg/dL 1.22 1.29 1.38* 1.36* Nutrition Specific Medications: Scheduled medications acetaminophen, 975 mg, oral, TID chlorhexidine, , Topical, BID clindamycin, , Topical, BID enoxaparin, 40 mg, subcutaneous, q24h fentaNYL, 1 patch, transdermal, q72h folic acid, 1 mg, oral, Daily gabapentin, 300 mg, oral, Nightly lactulose, 20 g, oral, TID melatonin, 3 mg, oral, Nightly multivitamin with minerals, 1 tablet, oral, Daily piperacillin-tazobactam, 3.375 g, intravenous, q6h polyethylene glycol, 17 g, oral, BID sennosides-docusate sodium, 2 tablet, oral, BID varenicline tartrate, 1 mg, oral, BID Continuous medications PRN medications PRN medications: HYDROmorphone, naloxone, ondansetron, oxyCODONE, prochlorperazine I/O: Last BM Date: 11/22/24; Stool Appearance: Loose (11/22/24 2300) Dietary Orders (From admission, onward) Start Ordered 11/18/24 1637 Oral nutritional supplements Until discontinued Question Answer Comment Deliver with Dinner Select supplement: Magic Cup 11/18/24 1637 11/14/24 1058 Adult diet Regular Diet effective now Question: Diet type Answer: Regular 11/14/24 1057 11/11/24 1048 Oral nutritional supplements Until discontinued Comments: Chocolate. Question Answer Comment Deliver with Lunch Select supplement: Ensure Plus 11/11/24 1047 11/10/24 0427 May Participate in Room Service ( ROOM SERVICE MAY PARTICIPATE) Once Question: . Answer: Yes 11/10/24425 Estimated Needs: Total Energy Estimated Needs in 24 hours (kCal): 2700 kCal Method for Estimating Needs: IBW / 27 kcal Total Protein Estimated Needs in 24 Hours (g): 135 g Method for Estimating 24 Hour Protein Needs: IBW / 1.35 g Nutrition Diagnosis Malnutrition Diagnosis Patient has Malnutrition Diagnosis: Yes Diagnosis Status: Active Malnutrition Diagnosis: Moderate malnutrition related to acute disease or injury As Evidenced by: meeting < 75% of EER for > 1 week, mild fat loss and muscle wasting and 10.2% weight loss x ~ 3 weeks. Nutrition Diagnosis Patient has Nutrition Diagnosis: Yes Diagnosis Status (1): Active Nutrition Diagnosis 1: Increased nutrient needs Related to (1): Increased metabolic demand As Evidenced by (1): hidradentitis suppurativa infection ,S/p Bx of peripheral nodule and tissue Cx on 11/12/24 c/f SCC (primary vs metastatic lesion). Nutrition Interventions/Recommendations Nutrition prescription for oral nutrition Nutrition Recommendations: Individualized Nutrition Prescription Provided for : Regular diet. Ensure Plus (350 kcal and 13 g protein) increased to BID. Magic Cup discontinued per patient preferenc. Continue MVI Nutrition Interventions/Goals: Interventions: Medical food supplement, Meals and snacks Education Documentation Encourage Ensure BID Nutrition Monitoring and Evaluation Food/Nutrient Related History Monitoring Monitoring and Evaluation Plan: Intake / amount of food Intake / Amount of food: Consumes at least 75% or more of meals/snacks/supplements Anthropometric Measurements Monitoring and Evaluation Plan: Body weight Body Weight: Body weight - Maintain stable weight Biochemical Data, Medical Tests and Procedures Criteria: Labs wnl Physical Exam Findings Monitoring and Evaluation Plan: Skin Skin Finding: Imparied wound healing - Skin to heal Goal Status: Goal(s) not achieved Time Spent (min): 30 minutes Occupational Therapy Occupational Therapy Treatment Name: Kevan La : 1975 Date: 11/26/24 Room: [address] [place] [address] Time Calculation Start Time: 1234 Stop Time: 1252 Time Calculation (min): 18 min Assessment: OT Assessment: Pt continues to present with decreased ADL/IADL and functional mobility independence. Pt remains appropriate for MOD intensity OT. Prognosis: Good Barriers to Discharge Home: Caregiver assistance, Physical needs Caregiver Assistance: Patient lives alone and/or does not have reliable caregiver assistance Physical Needs: Ambulating household distances limited by function/safety, 24hr mobility assistance needed, High falls risk due to function or environment, Intermittent ADL assistance needed Evaluation/Treatment Tolerance: Patient tolerated treatment well Medical Staff Made Aware: Yes End of Session Communication: Bedside nurse End of Session Patient Position: Bed, 4 rail up, Alarm off, not on at start of session (pt requested 4 rails up) Plan: Treatment Interventions: ADL retraining, Functional transfer training, Endurance training, Patient/family training, Equipment evaluation/education, Compensatory technique education OT Frequency: 3 times per week OT Discharge Recommendations: Moderate intensity level of continued care Equipment Recommended upon Discharge: (grocery carrier, sock aide, shower chair) OT Recommended Transfer Status: Assist of 1 OT - OK to Discharge: Yes (OT eval complete and d/c recs made) Subjective General: OT Last Visit OT Received On: 11/26/24 Reason for Referral: gluteal fluid collection Past Medical History Relevant to Rehab: refractory hidradenitis supprativa, (L) gluteal wound s/p recent I&D Prior to Session Communication: Bedside nurse Patient Position Received: Bed, 3 rail up, Alarm off, not on at start of session Family/Caregiver Present: No General Comment: Pt in R sidelying upon arrival and agreeable to therapy. Completed UB and LB dressing as well as sit<>stand transfer. Pt remains appropriate for MOD intensity OT. Precautions: Hearing/Visual Limitations: glasses Medical Precautions: Fall precautions Vitals: Date/Time Vitals Session Patient Position Pulse Resp SpO2 BP MAP (mmHg) 11/26/24 13:48:27 -- -- 72 15 97 % 103/60 74 Cognition: Overall Cognitive Status: Within Functional Limits Arousal/Alertness: Appropriate responses to stimuli Orientation Level: Oriented X4 Following Commands: Follows all commands and directions without difficulty Problem Solving: Within Functional Limits Safety/Judgement: Within Functional Limits Insight: Within function limits Impulsive: Within functional limits Processing Speed: Within funtional limits Pain Assessment: Pain Assessment Pain Assessment: 0-10 0-10 (Numeric) Pain Score: 5 - Moderate pain Pain Location: Buttocks Pain Orientation: Left Objective Activities of Daily Living: UE Dressing UE Dressing Level of Assistance: Minimum assistance UE Dressing Where Assessed: Bed level UE Dressing Comments: While supine in bed, pt threaded BUEs through gown sleeves, required assist for tying in back. Later while supine in bed, pt doffed gown with Concepcion and donned new gown with setup only. LE Dressing LE Dressing: Yes Pants Level of Assistance: Moderate assistance, Minimal verbal cues LE Dressing Where Assessed: Bed level LE Dressing Comments: While supine in bed, pt doffed and donned pants with modA - assist required for BLEs (taking pants off below knees and threading to knees to don) Functional Standing Tolerance: Functional Mobility Functional Mobility Performed: No Bed Mobility/Transfers: Bed Mobility Bed Mobility: Yes Bed Mobility 1 Bed Mobility 1: Supine to sitting Level of Assistance 1: Contact guard, Minimal verbal cues Bed Mobility Comments 1: pt with lateral lean onto R side to avoid putting weight onto L side d/t pain - min VCs for safety Bed Mobility 2 Bed Mobility 2: Sitting to supine Level of Assistance 2: Contact guard, Minimal verbal cues Bed Mobility Comments 2: Lateral lean toward R side in sitting Transfers Transfer: Yes Transfer 1 Transfer From 1: Bed to, Stand to Transfer to 1: Stand, Bed Technique 1: Sit to stand, Stand to sit Transfer Device 1: Walker Transfer Level of Assistance 1: Contact guard, Minimal verbal cues Trials/Comments 1: Began with lateral lean and sat down with lateral lean (toward R side to avoid weight onto L side) Balance: Dynamic Standing Balance Dynamic Standing-Level of Assistance: Contact guard Dynamic Standing-Comments: + walker taking few rotating steps at EOB Static Sitting Balance Static Sitting-Level of Assistance: Close supervision Static Sitting-Comment/Number of Minutes: Lateral lean (R) Static Standing Balance Static Standing-Level of Assistance: (CGA-close supervision + walker) Therapy/Activity: Therapeutic Activity Therapeutic Activity Performed: Yes Therapeutic Activity 1: Pt completed bed mobility with VCs for safety while decreasing pain Therapeutic Activity 2: Stood EOB ~1 min for promoting balance and endurance in preparation for ADL/IADL and functional mobility tasks Strength: Strength Strength Comments: WFL via ADLs Outcome Measures: [facility] Daily Activity Putting on and taking off regular lower body clothing: A lot Bathing (including washing, rinsing, drying): A lot Putting on and taking off regular upper body clothing: A little Toileting, which includes using toilet, bedpan or urinal: A lot Taking care of personal grooming such as brushing teeth: A little Eating Meals: A little Daily Activity - Total Score: 15 Brief Confusion Assessment Method (bCAM) CAM Result: CAM - Education Documentation Body Mechanics, taught by Manuela Elmore OT at 11/26/2024 1:58 PM. Learner: Patient Readiness: Acceptance Method: Explanation, Demonstration Response: Verbalizes Understanding, Demonstrated Understanding Precautions, taught by Manuela Elmore OT at 11/26/2024 1:58 PM. Learner: Patient Readiness: Acceptance Method: Explanation, Demonstration Response: Verbalizes Understanding, Demonstrated Understanding ADL Training, taught by Manuela Elmore OT at 11/26/2024 1:58 PM. Learner: Patient Readiness: Acceptance Method: Explanation, Demonstration Response: Verbalizes Understanding, Demonstrated Understanding Education Comments No comments found. Goals: Encounter Problems Encounter Problems (Active) ADLs Patient with complete upper body dressing with independent level of assistance donning and doffing all UE clothes with no adaptive equipment while edge of bed. (Progressing) Start: 11/11/24 Expected End: 12/02/24 Patient with complete lower body dressing with stand by assist level of assistance donning and doffing all LE clothes with PRN adaptive equipment while edge of bed. (Progressing) Start: 11/11/24 Expected End: 12/02/24 Patient will complete daily grooming tasks brushing teeth and washing face/hair with independent level of assistance while edge of bed and if progressing, standing at sink. (Progressing) Start: 11/11/24 Expected End: 12/02/24 Patient will perform UB independent post set up and LB bathing with min assist and long-handled sponge. (Progressing) Start: 11/15/24 Expected End: 12/02/24 MOBILITY Patient will perform Functional mobility min Household distances/Community Distances with minimal assist level of assistance and least restrictive device in order to improve safety and functional mobility. (Progressing) Start: 11/11/24 Expected End: 12/02/24 TRANSFERS Patient will perform bed mobility minimal assist level of assistance and bed rails in order to improve safety and independence with mobility (Progressing) Start: 11/11/24 Expected End: 12/02/24 Patient will complete sit to stand transfer with minimal assist level of assistance and least restrictive device in order to improve safety and prepare for out of bed mobility. (Progressing) Start: 11/11/24 Expected End: 12/02/24 11/26/24 at 2:05 PM DANY Cortés/Kamila [phone] Requested [facility] [place] start precert for [employer] [place]. Jami Erwin RN, TCC Occupational Therapy Therapy Communication Note Patient Name: Kevan La Department: [facility] 3 Room: [facility]/319-A Today's Date: 11/26/2024 Discipline: Occupational Therapy OT Missed Visit: Yes Missed Visit Reason: Missed Visit Reason: Other (Comment) (Pt endorsing pain and stated "I'm waiting for the nurse to give me pain meds" and "I can't even eat breakfast. Will reattempt as schedule permits.) Missed Time: Attempt Manuela Elmore OTR/L Kevan La is a 49 y.o. male on day 16 of admission presenting with No Principal Problem: There is no principal problem currently on the Problem List. Please update the Problem List and refresh.. Subjective NAEO. Reports ongoing wound pain. Denies fevers or chills. Objective Last Recorded Vitals BP 104/56 Pulse 75 Temp 36.6 C (97.9 F) Resp 16 Wt 104 kg (230 lb) SpO2 94% Intake/Output last 3 Shifts: Intake/Output Summary (Last 24 hours) at 11/26/2024 0705 Last data filed at 11/26/2024 0449 Gross per 24 hour Intake 100 ml Output 1450 ml Net -1350 ml Admission Weight Weight: 104 kg (230 lb) (11/11/24 0942) Daily Weight 11/11/24 : 104 kg (230 lb) Image Results CT chest abdomen pelvis w IV contrast Narrative: Interpreted By: Ravin Hyatt and Omar Mahmoud STUDY: CT CHEST ABDOMEN PELVIS W IV CONTRAST; 11/19/2024 2:43 pm INDICATION: Signs/Symptoms:new dx of invasive SCC, eval for mets. Per EMR: Patient with history of hydradenitis suppurativa with chronic left gluteal wound and recent biopsy positive for well-differentiated invasive squamous cell carcinoma. COMPARISON: CT pelvis 11/08/2024. ACCESSION NUMBER(S): [id number] ORDERING CLINICIAN: CLAUDIO PLUNKETT TECHNIQUE: CT of the chest, abdomen, and pelvis was performed. Contiguous axial images were obtained at 3 mm slice thickness through the chest, abdomen and pelvis. Coronal and sagittal reconstructions at 3 mm slice thickness were performed. 90 ML of Omnipaque 350 was administered intravenously without immediate complication. FINDINGS: CHEST: LUNG/PLEURA/LARGE AIRWAYS: [id number] upper lobe predominant centrilobular and paraseptal emphysema. Right basilar atelectasis/scarring. There is a 4 mm pulmonary nodule within the left upper lobe (series 301, image 17). There is no pneumothorax. There is no pleural effusion. VESSELS: Aorta and pulmonary arteries are normal caliber. No atherosclerotic changes of the aorta are identified. HEART: The heart is normal in size. There is no pericardial effusion. MEDIASTINUM AND DAREK: No mediastinal, hilar or axillary lymphadenopathy is present. The esophagus is unremarkable. CHEST WALL AND LOWER NECK: The soft tissues of the chest wall demonstrate no gross abnormality. The visualized thyroid gland appears within normal limits. ABDOMEN: LIVER: The liver measures 19.8 cm in craniocaudal dimension. There are no focal liver lesions. BILE DUCTS: The intrahepatic and extrahepatic ducts are not dilated. GALLBLADDER: The gallbladder is nondistended and without evidence of radiopaque stones. PANCREAS: The pancreas appears unremarkable without evidence of ductal dilatation or masses. SPLEEN: The spleen is normal in size without focal lesions. ADRENAL GLANDS: Bilateral adrenal glands appear normal. KIDNEYS AND URETERS: The kidneys are normal in size and enhance symmetrically. Mild fullness of the right extrarenal pelvis. No hydroureteronephrosis. No nephroureterolithiasis. No focal renal lesions. PELVIS: BLADDER: Bladder wall is not thickened. Multiple bladder wall diverticuli. REPRODUCTIVE ORGANS: The prostate is not enlarged. BOWEL: The stomach is unremarkable. The small and large bowel are normal in caliber and demonstrate no wall thickening. The appendix appears normal. VESSELS: There is no aneurysmal dilatation of the abdominal aorta. The IVC appears normal. Mild atherosclerosis of the abdominal aorta and its branches. PERITONEUM/RETROPERITONEUM/LYMPH NODES: No ascites or free air, no fluid collection. Stable left pelvic sidewall lymph node 1.3 cm in maximum short axis dimension (series 301, image 200). Stable possible conglomerate left superficial inguinal lymph node measures 1.8 cm in maximum short axis dimension (series 301, image 212). An additional stable left superficial inguinal lymph node measures 1.7 cm in maximum short axis dimension (series 301, image 196). Additionally, there are prominent subcentimeter retroperitoneal lymph nodes which are primarily found superiorly to the level of the common iliac arteries. BONE AND SOFT TISSUE: Soft tissue tract within the medial left gluteal wall which appears to extend to the anus (series 301, image 240). Skin thickening within the posterosuperior right thigh up to 1.1 cm (series 301, image 249). Left gluteal skin thickening up to 2.3 cm (series 301, image 233). Stable size of a left gluteal mass involving the left gluteus randell and left gluteus minimus which currently measures 12.8 x 9.0 cm (series 301, image 252), previously measuring 13.4 by 8.9 on 11/08/2024. There is an exophytic nodule measuring 4.5 x 3.4 cm (series 301, image 275) extending posteriorly from the posterior left superior thigh which is continuous with the dominant left gluteal mass (series 303, image 113). No suspicious osseous lesions are identified. Impression: 1. Stable size of a left gluteal mass involving left gluteus randell and minimus which is in continuity with a more inferior exophytic posterior nodule, in keeping with patient's known pathological diagnosis of squamous cell carcinoma. 2. There are enlarged/prominent left superficial inguinal, left pelvic sidewall, and retroperitoneal lymph nodes extending superiorly to the level of the common iliac arteries. These may represent sites of metastatic disease or may be reactive secondary to patient's history of hidradenitis suppurativa. PET-CT is recommended to assist in further delineation. 3. Soft tissue tract within the medial left gluteal wall with apparent extension to the anus which may represent a perianal fistula. MRI can be considered for further evaluation. 4. There is a 4 mm pulmonary nodule within left upper lobe of indeterminate chronicity. Attention on follow-up examinations is recommended. 5. Slbb-iaqkxpe-euug-right skin thickening extending from the sacral region to the proximal thigh, in keeping with patient's background of hydradenitis suppurativa. 6. Evnw-hj-zkksoamz upper lobe predominant centrilobular and paraseptal emphysema. I personally reviewed the images/study and I agree with the findings as stated by Elenita Munroe MD (PGY-2). This study was interpreted at [place], [place]. MACRO: None Signed by: Ravin Hyatt 11/19/2024 4:54 PM Dictation workstation: [id number] Physical Exam General: Resting in bed on his R side, grimacing in pain but in no acute distress. Cardiovascular: RRR, no r/m/g Pulmonary: Lungs clear to auscultation bilaterally. No wheezes/ rhonchi/ rales GI: firm, but not rigid, non-tender : No Wallace cath Extremities: No LE edema. Skin: Dressing removed to examine wound during rounds. Left buttock wound with improving degree of exudate, malodorous. L thigh raised lesion with stable surrounding erythema and thick yellow exudate. Wound looking stable from yesterday Relevant Results Scheduled medications acetaminophen, 975 mg, oral, TID chlorhexidine, , Topical, BID clindamycin, , Topical, BID enoxaparin, 40 mg, subcutaneous, q24h fentaNYL, 1 patch, transdermal, q72h folic acid, 1 mg, oral, Daily gabapentin, 300 mg, oral, Nightly lactulose, 20 g, oral, TID melatonin, 3 mg, oral, Nightly multivitamin with minerals, 1 tablet, oral, Daily piperacillin-tazobactam, 3.375 g, intravenous, q6h polyethylene glycol, 17 g, oral, BID sennosides-docusate sodium, 2 tablet, oral, BID varenicline tartrate, 1 mg, oral, BID Continuous medications PRN medications PRN medications: HYDROmorphone, naloxone, ondansetron, oxyCODONE, prochlorperazine Assessment/Plan Kevan La is a 49 y.o. male with refractory hidradenitis supprativa (HS) not responding to povorcitinib (RCT candidate), apremilast, isotretinoin, adalimumab, infliximab, moxifloxacin/metronidazole, minocyclin, clindamycin, rifampin, augmentin and doxycycline, transferred from [facility] regarding 14cm gluteal fluid collection. He was recently admitted for the same L. gluteal abscess which was 9.2 x 5.7 x 13.2cm in size s/p I&D. Pending speciation of culture he was discharged with a course of Unasyn per ID however returns due to gluteal pain and questionable sepsis, CT Pelvis at OSH with large ulcerative wound at the left buttock with an adjacent 14.9 cm enhancing mass involving the left gluteal muscles and overlying subcutaneous tissue, larger than CT in 08/2024, which may represent failure of current antibiotic regimen. ACS surgery engaged, recommended no surgical interventions. S/p Bx of peripheral nodule and tissue Cx on 11/12/24 c/f SCC (primary vs metastatic lesion). Additional biopsies taken by dermatology 11/15 showed invasive SCC. Tumor board meeting 11/18/24 recommended initial management by Med Onc. No immediate surgical interventions recommended. PET CT w/ lymph node bx deferred to outpatient. Endocrinology previously engaged for hypercalcemia and hematology previously following for M spike on SPEP both signed off. Hypercalcemia is likely PTHrP mediated and related to malignany. No further endo or heme work up recommended. Derm path was unable to stain obtained bx for PTHrP. On 11/21/24 new wound infection suspected, given increased malodorous discharge from the wounds and worsening neutrophil-predominant leukocytosis. Pt's abx was broaden to Zosyn, wound and blood Cx in progress. 11/21 Wound cx growing numerous GNB/GPB, and 11/22 wound cx growing GNB/GPB/mixed anaerobes. Updates 11/26: -c/w supportive onc recs: -fentanyl patch 75 mcg/h Q72H (last increased 11/20/24) -c/w oxycodone IR 20 mg PO Q3H PRN moderate or severe pain -c/w hydromorphone 1 mg IV Q2H PRN for breakthrough pain [ ] needs supportive onc outpatient follow-up soon after discharge -started precert today -cont to follow wound cx and blood cx, pending final result -c/w Zosyn until discharge [ ] transition to Augmentin/cipro on discharge - Wound care following, appreciate ongoing care #L gluteal SCC iso chronic HS-associated wound and SCC of L thigh (likely a metastatic lesion) #Pelvic, inguinal, retroperitoneal Lymphoadenopathy :: SCC confirmed on bx 11/12/24 and 11/15/24 :: Tumor board 11/18/24 recommended management by Med Onc, no surgical intervention at this time :: CT C/A/P w/ contrast showed 0.4 mm lung nodule and lymphoadenopathy - Oncology following, - PET CT with lymph node Bx outpatient [ ] will tentatively arrange follow-[place]. [place] [facility] pending transport capabilities of eventual SNF - discussed that seeking care with a local oncologist would be reasonable as well - If needed by SNF: tentative treatment would be an immunotherapy infusion approximately 2 hrs of chair time once every 21 days #Cancer and wound related pain :: Supportive Onc following Plan -current regimen: 75 mcg fentanyl patch q 72h +20 mg oxycodone q3h PRN for moderate/severe pain + 1 mg IV hydromorphone q2h PRN for breakthrough pain -supportive onc team will place outpt follow-up if he is establishing at [facility] [place] follow-up oncology care [ ] f/u supportive onc team regarding days of oxy to send pt with at discharge #Gluteal wound s/p abscess I&D 10/13 #C/f New wound infection #Refractory hidradenitis suppurativa #Deep tissue SSTI #Leukocytosis - improving ::CT Pelvis 11/08/24: Large ulcerative wound at the left buttock with an adjacent 14.9 cm enhancing mass involving the left gluteal muscles and overlying subcutaneous tissue, larger than CT in 08/2024 :: Last dose of Povorcitanib 10/10 :: Blood Cx from 11/10 NGTD :: Tissue Cx from 11/12 growing rare proteus mirabilis, Augmentin susceptible :: Quant TB, HIV, Hep B surface antigen/antibody, Hep B core antibody, and Hep C testing-- all negative :: V/Z (11/08 - 11/14) :: Stopped PO Augmentin 875 BID (11/14-11/22/24) :: 36 New wound infection suspected Plan: - cont to follow wound Cx and blood Cx - Wound care following - c/w Zosyn [ ] transition to Augmentin/cipro on discharge - Holding home PO iron iso possible infection - cont with Derm recs about suspected infection - Previous Dermatology recs: -Continue hibiclens wash BID, topical clindamycin BID, and wound care -Follow up outpatient with Dr. Valentino or Apolinar to start immunotherapy -Ok to discharge once pain is controlled #Hypotension :: appears long standing on chart review, pt confirmed hx of low BPs :: normal TSH Plan - CTM #Hypercalcemia - resolved ::presented with CoCa 12.5; iCa 1.69; 24 hr urine Ca 384 (elevated) ::PTH <6.3 ::PTHrP elevated ::25-OH vit D 79; 1.25-OH vit D 35.9 :: SPEP with M protein spike: monoclonal free lambda light chains in beta region :: UPEP wnl :: Elevated IgA; IgG and IgM wnl :: TSH wnl :: S/p pamidronate 90 mg IV 11/12/24 :: Heme signed off :: AL stain negative Plan - Endocrine signed off with final recs: - if hypercalcemia reoccurs, can give 90 mg iv pamidronate 1-2 weeks after initial admin. (First admin 11/12) #Nicotine Use Plan - Continue home Chantix #Subacute PARUL - improving ::Cr ~1.6 on last admission, Cr continues to improve ::On prior admission was evaluated for this with normal UA, CT with no hydronephrosis, felt to be 2/2 NSAID use for HS ::A1c and UA normal on admission at [facility] ::FeUrea 48.2% (>35=> suggestive of intrinsic renal disease) Plan - Avoid nephrotoxic drug, hypotension, sepsis, dehydration - Continuing to encourage oral hydration and monitor serum calcium #Bladder Calculi ::Incidentally noted on CT Pelvis from OSH, asymptomatic, max diam is 1.5 cm #Normocytic Anemia #Folate Deficiency :: Hgb 10.4 at [facility], Hgb 8.8 on admission, Hgb 9.0 today :: 10/10/24: decr TIBC 218 and Fe 24; normal ferritin 259 :: B9 decreased at 4.6, B12 328 (wnl) :: Holding home PO iron :: pt consented for blood transfusion on 11/13/24 Plan - continue folate supplementation #Thrombocytosis :: reactive +/- iron deficiency component Plan - CTM F: none E: Keep mg >2, phos >3 and K >4 N: Regular A: PIV DVT ppx: lovenox GI ppx: None Bowel care: Sennosides, Miralax, lactulose Code Status: Full Code (confirmed on admission) Danna Soares MD Internal Med PGY1 Cosigned by Heather Lackey MD at 11/26/2024 6:22 PM EDT Associated attestation - Heather Lackey MD - 11/26/2024 6:22 PM EDT I saw and evaluated the patient. I personally obtained the gomez and critical portions of the history and physical exam or was physically present for gomez and critical portions performed by the resident/fellow. I reviewed the resident/fellow's documentation and discussed the patient with the resident/fellow. I agree with the resident/fellow's medical decision making as documented in the note. Pt's L buttock wound bed has granulation tissue and no pus, will plan to continue zosyn (start 11/09) while admitted. Heather Lackey MD Physical Therapy Physical Therapy Treatment Patient Name: Kevan La Department: [place] [id number] Room: [facility]319-A Today's Date: 11/25/2024 Time Calculation Start Time: 1522 Stop Time: 1539 Time Calculation (min): 17 min Assessment/Plan PT Assessment PT Assessment Results: Decreased strength, Decreased endurance, Decreased mobility, Pain Barriers to Discharge Home: Caregiver assistance, Physical needs Caregiver Assistance: Patient lives alone and/or does not have reliable caregiver assistance Physical Needs: Stair navigation into home limited by function/safety, Ambulating household distances limited by function/safety, High falls risk due to function or environment Evaluation/Treatment Tolerance: Patient limited by pain End of Session Communication: Bedside nurse Assessment Comment: 49 yo male presenting with decreased strength, decreased tolerance for upright activities, decreased mobility, & significant amounts of pain. Pt motivated & willing to participate in therapy despite high pain levels, however, unable to tolerate standing more than 2 min this date. Pt requires increased time to complete bed mobility & transfers as he mobilizes in an unorthodox way in order to avoid WB through L buttock. Although unorthodox, pt moves slowly & with control & does not demo any losses of balance. Pt remains appropriate for moderate intensity level of PT following discharge from acute hospital (when medically ready). End of Session Patient Position: Bed, 3 rail up, Alarm off, not on at start of session PT Plan Inpatient/Swing Bed or Outpatient: Inpatient PT Plan Treatment/Interventions: Bed mobility, Transfer training, Gait training, Therapeutic exercise, Therapeutic activity PT Plan: Ongoing PT PT Frequency: 3 times per week PT Discharge Recommendations: Moderate intensity level of continued care Equipment Recommended upon Discharge: Wheeled walker PT Recommended Transfer Status: Assist x1, Assistive device PT - OK to Discharge: Yes (POC/goals/discharge rec intensity created) General Visit Information: PT Visit PT Received On: 11/25/24 General Prior to Session Communication: Bedside nurse Patient Position Received: Bed, 3 rail up, Alarm off, not on at start of session General Comment: Pt right sidelying in bed upon PT entry into room. Agreeable to therapy. Subjective Precautions: Precautions Medical Precautions: Fall precautions Date/Time Vitals Session Patient Position Pulse Resp SpO2 BP MAP (mmHg) 11/25/24 1522 Pre PT Lying 86 -- 97 % 110/61 77 11/25/24 15:26:37 -- -- 82 -- 97 % 110/61 77 Objective Pain: Pain Assessment Pain Assessment: 0-10 0-10 (Numeric) Pain Score: 7 Pain Type: Acute pain Pain Location: Buttocks Pain Orientation: Left Pain Interventions: Medication (See MAR), Repositioned, Distraction Coordination: Movements are Fluid and Coordinated: Yes Postural Control: Postural Control Postural Control: Within Functional Limits Head Control: WFL Trunk Control: WFL Posture Comment: Pt leans to R side to avoid weight bearing on L buttocks Static Sitting Balance Static Sitting-Balance Support: Feet supported, Right upper extremity supported Static Sitting-Level of Assistance: Distant supervision Static Sitting-Comment/Number of Minutes: Lean to R side to avoid WB through L buttocks. Static Standing Balance Static Standing-Balance Support: Bilateral upper extremity supported Static Standing-Level of Assistance: Contact guard Static Standing-Comment/Number of Minutes: Heavy UE WB through walker. (~2 min) Activity Tolerance: Activity Tolerance Endurance: Decreased tolerance for upright activites Treatments: Therapeutic Exercise Therapeutic Exercise Performed: No Therapeutic Activity Therapeutic Activity Performed: Yes Therapeutic Activity 1: Donning pants in supine, min A Therapeutic Activity 2: Deeping breathing while sitting EOB & while standing for management of dizziness. Bed Mobility Bed Mobility: Yes Bed Mobility 1 Bed Mobility 1: Supine to sitting Level of Assistance 1: Close supervision Bed Mobility Comments 1: Pt requires increased time to complete. Pt utilizing rails & B LEs to lift hips in order to avoid any WB through L buttocks. (HOB flat) Bed Mobility 2 Bed Mobility 2: Sitting to supine Level of Assistance 2: Close supervision Bed Mobility Comments 2: Pt entered bed forward by placing R knee into bed first & turning himself into sidelying to avoid WB through L buttock. (HOB flat) Ambulation/Gait Training Ambulation/Gait Training Performed: No (Pt unable to tolerate standing for more than 2 min d/t significant amounts of pain in L buttock.) Transfers Transfer: Yes Transfer 1 Transfer From 1: Sit to Transfer to 1: Stand Transfer Device 1: Walker Transfer Level of Assistance 1: Contact guard Transfers 2 Transfer From 2: Stand to Transfer to 2: Sit Transfer Device 2: Walker Transfer Level of Assistance 2: Contact guard Outcome Measures: [facility] Basic Mobility Turning from your back to your side while in a flat bed without using bedrails: A little Moving from lying on your back to sitting on the side of a flat bed without using bedrails: A little Moving to and from bed to chair (including a wheelchair): A little Standing up from a chair using your arms (e.g. wheelchair or bedside chair): A little To walk in hospital room: A little Climbing 3-5 steps with railing: Total Basic Mobility - Total Score: 16 Education Documentation Mobility Training, taught by Khadra Lopez PT at 11/25/2024 4:03 PM. Learner: Patient Readiness: Acceptance Method: Explanation, Demonstration Response: Verbalizes Understanding, Demonstrated Understanding, Needs Reinforcement Comment: Mobility training Education Comments No comments found. Encounter Problems Encounter Problems (Active) Balance STG - Maintains dynamic standing balance with upper extremity support with CGA-> close (S), LRAD. (Progressing) Start: 11/12/24 Expected End: 11/26/24 Mobility STG - Patient will ambulate with CGA-> close (S), LRAD, 50 ft x2. (Progressing) Start: 11/12/24 Expected End: 11/26/24 PT Transfers STG - Patient will perform bed mobility with (S)-> (I). (Progressing) Start: 11/12/24 Expected End: 11/26/24 STG - Patient will transfer sit to and from stand CGA-> close (S). (Progressing) Start: 11/12/24 Expected End: 11/26/24 Khadra Lopez PT, DPT Music Therapy Note Kevan Tali Therapy Session Referral Type: New referral this admission Visit Type: Follow-up visit Session Start Time: 1433 Session End Time: 1520 Intervention Delivery: In-person Conflict of Service: None Family Present for Session: None Pre-assessment Pain Score: 7 Stress Level (0-10): 8 Anxiety Level (0-10): 0 Coping Level (0-10): 5 Mood/Affect: Appropriate, Calm, Participative, Cooperative Treatment/Interventions Areas of Focus: Self-expression, Socialization, Relaxation Music Therapy Interventions: Recorded music listening, Music sharing/discussion, Live music listening Interruption: No Patient Fell Asleep at End of Session: No Post-assessment 0-10 (Numeric) Pain Score: 7 Stress Level (0-10): 5 Anxiety Level (0-10): 0 Coping Level (0-10): 5 Mood/Affect: Calm, Participative, Cooperative, Appropriate Continue Visiting: Yes Total Session Time (min): 47 minutes Narrative Assessment Detail: Pt presented A&O lying in bed watching tv with HOB slightly raised with a bright affect. Pt engaged in discussion on his pain levels and quickly agreed to a music therapy session. Plan: MT and MTI engaged pt in music sharing/discussion, recorded music listening and live music listening to support relaxation, self-expression and socialization. Intervention: Pt participated by discussing and playing a recorded blue grass version of the song, "Rocket man" and expressed interest in covers of popular songs that are adapted to a unique and different style than the original. Pt also participated by clapping and displaying a bright affect after each song that was played by MT and MTI who both sang and self-accompanied on guitar. Evaluation: Pt responded by engaging in conversation of themes surrounding Astronomy and personal hobbies prompted by the music. Pt responded by expressing how the music relieved stress and provided a means of coping during his stay. Follow-up: MT and MTI will continue to f/u during pts admission. Education Documentation No documentation found. Cosigned by RAJENDRA Liu at 11/27/2024 2:06 PM EDT Transitional Care Coordination Progress Note: PLAN PER MEDICAL TEAM: Working on pain management, still severe. Received recommendations from supportive onc. Continue to monitor his resolving wound infection requiring IV ATB that will convert to oral prior to discharge. PAYOR: Veronica DISPO: [facility] is accepting FOC. ADOD 2-3 days. Will need precert. Requested updated PT/OT evals to start precert. SUPPORT/CONTACT: ShaeerOmkar, Jami Erwin RN, TCC Kevan La is a 49 y.o. male on day 15 of admission presenting with No Principal Problem: There is no principal problem currently on the Problem List. Please update the Problem List and refresh.. Subjective Patient does not have main complaints. Reports ongoing wound pain that he does not think is well controlled. Denies fevers or chills. Objective Last Recorded Vitals BP 106/62 Pulse 82 Temp 36.6 C (97.9 F) Resp 18 Wt 104 kg (230 lb) SpO2 97% Intake/Output last 3 Shifts: Intake/Output Summary (Last 24 hours) at 11/25/2024 0652 Last data filed at 11/25/2024 0540 Gross per 24 hour Intake 200 ml Output 1450 ml Net -1250 ml Admission Weight Weight: 104 kg (230 lb) (11/11/24 0942) Daily Weight 11/11/24 : 104 kg (230 lb) Image Results CT chest abdomen pelvis w IV contrast Narrative: Interpreted By: Ravin Hyatt and Omar Mahmoud STUDY: CT CHEST ABDOMEN PELVIS W IV CONTRAST; 11/19/2024 2:43 pm INDICATION: Signs/Symptoms:new dx of invasive SCC, eval for mets. Per EMR: Patient with history of hydradenitis suppurativa with chronic left gluteal wound and recent biopsy positive for well-differentiated invasive squamous cell carcinoma. COMPARISON: CT pelvis 11/08/2024. ACCESSION NUMBER(S): [id number] ORDERING CLINICIAN: CLAUDIO PLUNKETT TECHNIQUE: CT of the chest, abdomen, and pelvis was performed. Contiguous axial images were obtained at 3 mm slice thickness through the chest, abdomen and pelvis. Coronal and sagittal reconstructions at 3 mm slice thickness were performed. 90 ML of Omnipaque 350 was administered intravenously without immediate complication. FINDINGS: CHEST: LUNG/PLEURA/LARGE AIRWAYS: [id number]-gu-[id number] upper lobe predominant centrilobular and paraseptal emphysema. Right basilar atelectasis/scarring. There is a 4 mm pulmonary nodule within the left upper lobe (series 301, image 17). There is no pneumothorax. There is no pleural effusion. VESSELS: Aorta and pulmonary arteries are normal caliber. No atherosclerotic changes of the aorta are identified. HEART: The heart is normal in size. There is no pericardial effusion. MEDIASTINUM AND DAREK: No mediastinal, hilar or axillary lymphadenopathy is present. The esophagus is unremarkable. CHEST WALL AND LOWER NECK: The soft tissues of the chest wall demonstrate no gross abnormality. The visualized thyroid gland appears within normal limits. ABDOMEN: LIVER: The liver measures 19.8 cm in craniocaudal dimension. There are no focal liver lesions. BILE DUCTS: The intrahepatic and extrahepatic ducts are not dilated. GALLBLADDER: The gallbladder is nondistended and without evidence of radiopaque stones. PANCREAS: The pancreas appears unremarkable without evidence of ductal dilatation or masses. SPLEEN: The spleen is normal in size without focal lesions. ADRENAL GLANDS: Bilateral adrenal glands appear normal. KIDNEYS AND URETERS: The kidneys are normal in size and enhance symmetrically. Mild fullness of the right extrarenal pelvis. No hydroureteronephrosis. No nephroureterolithiasis. No focal renal lesions. PELVIS: BLADDER: Bladder wall is not thickened. Multiple bladder wall diverticuli. REPRODUCTIVE ORGANS: The prostate is not enlarged. BOWEL: The stomach is unremarkable. The small and large bowel are normal in caliber and demonstrate no wall thickening. The appendix appears normal. VESSELS: There is no aneurysmal dilatation of the abdominal aorta. The IVC appears normal. Mild atherosclerosis of the abdominal aorta and its branches. PERITONEUM/RETROPERITONEUM/LYMPH NODES: No ascites or free air, no fluid collection. Stable left pelvic sidewall lymph node 1.3 cm in maximum short axis dimension (series 301, image 200). Stable possible conglomerate left superficial inguinal lymph node measures 1.8 cm in maximum short axis dimension (series 301, image 212). An additional stable left superficial inguinal lymph node measures 1.7 cm in maximum short axis dimension (series 301, image 196). Additionally, there are prominent subcentimeter retroperitoneal lymph nodes which are primarily found superiorly to the level of the common iliac arteries. BONE AND SOFT TISSUE: Soft tissue tract within the medial left gluteal wall which appears to extend to the anus (series 301, image 240). Skin thickening within the posterosuperior right thigh up to 1.1 cm (series 301, image 249). Left gluteal skin thickening up to 2.3 cm (series 301, image 233). Stable size of a left gluteal mass involving the left gluteus randell and left gluteus minimus which currently measures 12.8 x 9.0 cm (series 301, image 252), previously measuring 13.4 by 8.9 on 11/08/2024. There is an exophytic nodule measuring 4.5 x 3.4 cm (series 301, image 275) extending posteriorly from the posterior left superior thigh which is continuous with the dominant left gluteal mass (series 303, image 113). No suspicious osseous lesions are identified. Impression: 1. Stable size of a left gluteal mass involving left gluteus randell and minimus which is in continuity with a more inferior exophytic posterior nodule, in keeping with patient's known pathological diagnosis of squamous cell carcinoma. 2. There are enlarged/prominent left superficial inguinal, left pelvic sidewall, and retroperitoneal lymph nodes extending superiorly to the level of the common iliac arteries. These may represent sites of metastatic disease or may be reactive secondary to patient's history of hidradenitis suppurativa. PET-CT is recommended to assist in further delineation. 3. Soft tissue tract within the medial left gluteal wall with apparent extension to the anus which may represent a perianal fistula. MRI can be considered for further evaluation. 4. There is a 4 mm pulmonary nodule within left upper lobe of indeterminate chronicity. Attention on follow-up examinations is recommended. 5. Jxbz-mmwinqz-axyf-right skin thickening extending from the sacral region to the proximal thigh, in keeping with patient's background of hydradenitis suppurativa. 6. Ijja-mx-kpotqwny upper lobe predominant centrilobular and paraseptal emphysema. I personally reviewed the images/study and I agree with the findings as stated by Elenita Munroe MD (PGY-2). This study was interpreted at [facility], [place], [place]. MACRO: None Signed by: Ravin Hyatt 11/19/2024 4:54 PM Dictation workstation: [id number] Physical Exam General: Resting in bed on his R side, grimacing in pain but in no acute distress. Cardiovascular: RRR, no r/m/g Pulmonary: Lungs clear to auscultation bilaterally. No wheezes/ rhonchi/ rales GI: firm, but not rigid, non-tender : No Wallace cath Extremities: No LE edema. Skin: Dressing removed to examine wound during rounds. Left buttock wound with improving degree of exudate, malodorous. L thigh raised lesion with stable surrounding erythema and thick yellow exudate. Wound looking improved from yesterday Relevant Results Scheduled medications acetaminophen, 975 mg, oral, TID chlorhexidine, , Topical, BID clindamycin, , Topical, BID enoxaparin, 40 mg, subcutaneous, q24h fentaNYL, 1 patch, transdermal, q72h folic acid, 1 mg, oral, Daily gabapentin, 300 mg, oral, Nightly lactulose, 20 g, oral, TID melatonin, 3 mg, oral, Nightly multivitamin with minerals, 1 tablet, oral, Daily piperacillin-tazobactam, 3.375 g, intravenous, q6h polyethylene glycol, 17 g, oral, BID sennosides-docusate sodium, 2 tablet, oral, BID varenicline tartrate, 1 mg, oral, BID Continuous medications PRN medications PRN medications: HYDROmorphone, naloxone, ondansetron, oxyCODONE, prochlorperazine Assessment/Plan Kevan La is a 49 y.o. male with refractory hidradenitis supprativa (HS) not responding to povorcitinib (RCT candidate), apremilast, isotretinoin, adalimumab, infliximab, moxifloxacin/metronidazole, minocyclin, clindamycin, rifampin, augmentin and doxycycline, transferred from [facility] regarding 14cm gluteal fluid collection. He was recently admitted for the same L. gluteal abscess which was 9.2 x 5.7 x 13.2cm in size s/p I&D. Pending speciation of culture he was discharged with a course of Unasyn per ID however returns due to gluteal pain and questionable sepsis, CT Pelvis at OSH with large ulcerative wound at the left buttock with an adjacent 14.9 cm enhancing mass involving the left gluteal muscles and overlying subcutaneous tissue, larger than CT in 08/2024, which may represent failure of current antibiotic regimen. ACS surgery engaged, recommended no surgical interventions. S/p Bx of peripheral nodule and tissue Cx on 11/12/24 c/f SCC (primary vs metastatic lesion). Additional biopsies taken by dermatology 11/15 showed invasive SCC. Tumor board meeting 11/18/24 recommended initial management by Med Onc. No immediate surgical interventions recommended. PET CT w/ lymph node bx deferred to outpatient. Endocrinology previously engaged for hypercalcemia and hematology previously following for M spike on SPEP both signed off. Hypercalcemia is likely PTHrP mediated and related to malignany. No further endo or heme work up recommended. Derm path was unable to stain obtained bx for PTHrP. On 11/21/24 new wound infection suspected, given increased malodorous discharge from the wounds and worsening neutrophil-predominant leukocytosis. Pt's abx was broaden to Zosyn, wound and blood Cx in progress. 11/21 Wound cx growing numerous GNB/GPB, and 11/22 wound cx growing GNB/GPB/mixed anaerobes. Updates 11/25: -updated supportive onc recs: -Increase fentanyl patch to 75 mcg/h Q72H (last increased 11/20/24) -Discontinue oxycodone IR 10 and 15 mg PO Q3H PRN moderate or severe pain -Start oxycodone IR 20 mg PO Q3H PRN moderate or severe pain -Continue hydromorphone 1 mg IV Q2H PRN for breakthrough pain -Team will re-address tomorrow, 11/26 -cont to follow wound cx and blood cx, pending final result -c/w Zosyn, [ ] will transition to Augmentin/cirpo when appropriate - Wound care and derm following, appreciate ongoing care #L gluteal SCC iso chronic HS-associated wound and SCC of L thigh (likely a metastatic lesion) #Pelvic, inguinal, retroperitoneal Lymphoadenopathy :: SCC confirmed on bx 11/12/24 and 11/15/24 :: Tumor board 11/18/24 recommended management by Med Onc, no surgical intervention at this time :: CT C/A/P w/ contrast showed 0.4 mm lung nodule and lymphoadenopathy - Oncology following, - PET CT with lymph node Bx outpatient [ ] will tentatively arrange follow-[place] [facility] pending transport capabilities of eventual SNF - discussed that seeking care with a local oncologist would be reasonable as well - If needed by SNF: tentative treatment would be an immunotherapy infusion approximately 2 hrs of chair time once every 21 days #Cancer and wound related pain :: Supportive Onc following Plan -current regimen: 75 mcg fentanyl patch q 72h +20 mg oxycodone q3h PRN for moderate/severe pain + 1 mg IV hydromorphone q2h PRN for breakthrough pain -supportive onc team will place outpt follow-up if he is establishing at [facility] [place] follow-up oncology care [ ] f/u supportive onc team regarding days of oxy to send pt with at discharge #Gluteal wound s/p abscess I&D 10/13 #C/f New wound infection #Refractory hidradenitis suppurativa #Deep tissue SSTI #Leukocytosis - improving ::CT Pelvis 11/08/24: Large ulcerative wound at the left buttock with an adjacent 14.9 cm enhancing mass involving the left gluteal muscles and overlying subcutaneous tissue, larger than CT in 08/2024 :: Last dose of Povorcitanib 10/10 :: Blood Cx from 11/10 NGTD :: Tissue Cx from 11/12 growing rare proteus mirabilis, Augmentin susceptible :: Quant TB, HIV, Hep B surface antigen/antibody, Hep B core antibody, and Hep C testing-- all negative :: V/Z (11/08 - 11/14) :: Stopped PO Augmentin 875 BID (11/14-11/22/24) :: 3/6 New wound infection suspected Plan: - cont to follow wound Cx and blood Cx - Wound care following - c/w Zosyn - Holding home PO iron iso possible infection - cont with Derm recs about suspected infection - Previous Dermatology recs: -Continue hibiclens wash BID, topical clindamycin BID, and wound care -Follow up outpatient with Dr. Valentino or Apolinar to start immunotherapy -Ok to discharge once pain is controlled #Hypotension :: appears long standing on chart review, pt confirmed hx of low BPs :: normal TSH Plan - CTM #Hypercalcemia - resolved ::presented with CoCa 12.5; iCa 1.69; 24 hr urine Ca 384 (elevated) ::PTH <6.3 ::PTHrP elevated ::25-OH vit D 79; 1.25-OH vit D 35.9 :: SPEP with M protein spike: monoclonal free lambda light chains in beta region :: UPEP wnl :: Elevated IgA; IgG and IgM wnl :: TSH wnl :: S/p pamidronate 90 mg IV 11/12/24 :: Heme signed off :: AL stain negative Plan - Endocrine signed off with final recs: - if hypercalcemia reoccurs, can give 90 mg iv pamidronate 1-2 weeks after initial admin. (First admin 11/12) #Nicotine Use Plan - Continue home Chantix #Subacute PARUL - improving ::Cr ~1.6 on last admission, Cr continues to improve ::On prior admission was evaluated for this with normal UA, CT with no hydronephrosis, felt to be 2/2 NSAID use for HS ::A1c and UA normal on admission at [facility] ::FeUrea 48.2% (>35=> suggestive of intrinsic renal disease) Plan - Avoid nephrotoxic drug, hypotension, sepsis, dehydration - Continuing to encourage oral hydration and monitor serum calcium #Bladder Calculi ::Incidentally noted on CT Pelvis from OSH, asymptomatic, max diam is 1.5 cm #Normocytic Anemia #Folate Deficiency :: Hgb 10.4 at [facility], Hgb 8.8 on admission, Hgb 9.0 today :: 10/10/24: decr TIBC 218 and Fe 24; normal ferritin 259 :: B9 decreased at 4.6, B12 328 (wnl) :: Holding home PO iron :: pt consented for blood transfusion on 11/13/24 Plan - continue folate supplementation #Thrombocytosis :: reactive +/- iron deficiency component Plan - CTM F: none E: Keep mg >2, phos >3 and K >4 N: Regular A: PIV DVT ppx: lovenox GI ppx: None Bowel care: Sennosides, Miralax, lactulose Code Status: Full Code (confirmed on admission) Danna Soares MD Internal Med PGY1 Cosigned by Gilbert Sylvester MD at 11/25/2024 2:48 PM EDT Associated attestation - Gilbert Sylvester MD - 11/25/2024 2:48 PM EDT I saw and evaluated the patient. I personally obtained the gomez and critical portions of the history and physical exam or was physically present for gomez and critical portions performed by the resident/fellow. I reviewed the resident/fellow's documentation and discussed the patient with the resident/fellow. I agree with the resident/fellow's medical decision making as documented in the note. Kevan La is a 49 y.o. male on day 14 of admission presenting with No Principal Problem: There is no principal problem currently on the Problem List. Please update the Problem List and refresh.. Subjective Patient does not have main complaints. Except for his wound pain. No fever or chills. Objective Last Recorded Vitals BP 96/62 Pulse 78 Temp 36.6 C (97.9 F) Resp 16 Wt 104 kg (230 lb) SpO2 95% Intake/Output last 3 Shifts: Intake/Output Summary (Last 24 hours) at 11/24/2024 1116 Last data filed at 11/24/2024 0548 Gross per 24 hour Intake 50 ml Output 950 ml Net -900 ml Admission Weight Weight: 104 kg (230 lb) (11/11/24 0942) Daily Weight 11/11/24 : 104 kg (230 lb) Image Results CT chest abdomen pelvis w IV contrast Narrative: Interpreted By: Ravin Hyatt and Omar Mahmoud STUDY: CT CHEST ABDOMEN PELVIS W IV CONTRAST; 11/19/2024 2:43 pm INDICATION: Signs/Symptoms:new dx of invasive SCC, eval for mets. Per EMR: Patient with history of hydradenitis suppurativa with chronic left gluteal wound and recent biopsy positive for well-differentiated invasive squamous cell carcinoma. COMPARISON: CT pelvis 11/08/2024. ACCESSION NUMBER(S): [id number] ORDERING CLINICIAN: CLAUDIO PLUNKETT TECHNIQUE: CT of the chest, abdomen, and pelvis was performed. Contiguous axial images were obtained at 3 mm slice thickness through the chest, abdomen and pelvis. Coronal and sagittal reconstructions at 3 mm slice thickness were performed. 90 ML of Omnipaque 350 was administered intravenously without immediate complication. FINDINGS: CHEST: LUNG/PLEURA/LARGE AIRWAYS: Dqrv-wj-njkbguka upper lobe predominant centrilobular and paraseptal emphysema. Right basilar atelectasis/scarring. There is a 4 mm pulmonary nodule within the left upper lobe (series 301, image 17). There is no pneumothorax. There is no pleural effusion. VESSELS: Aorta and pulmonary arteries are normal caliber. No atherosclerotic changes of the aorta are identified. HEART: The heart is normal in size. There is no pericardial effusion. MEDIASTINUM AND DAREK: No mediastinal, hilar or axillary lymphadenopathy is present. The esophagus is unremarkable. CHEST WALL AND LOWER NECK: The soft tissues of the chest wall demonstrate no gross abnormality. The visualized thyroid gland appears within normal limits. ABDOMEN: LIVER: The liver measures 19.8 cm in craniocaudal dimension. There are no focal liver lesions. BILE DUCTS: The intrahepatic and extrahepatic ducts are not dilated. GALLBLADDER: The gallbladder is nondistended and without evidence of radiopaque stones. PANCREAS: The pancreas appears unremarkable without evidence of ductal dilatation or masses. SPLEEN: The spleen is normal in size without focal lesions. ADRENAL GLANDS: Bilateral adrenal glands appear normal. KIDNEYS AND URETERS: The kidneys are normal in size and enhance symmetrically. Mild fullness of the right extrarenal pelvis. No hydroureteronephrosis. No nephroureterolithiasis. No focal renal lesions. PELVIS: BLADDER: Bladder wall is not thickened. Multiple bladder wall diverticuli. REPRODUCTIVE ORGANS: The prostate is not enlarged. BOWEL: The stomach is unremarkable. The small and large bowel are normal in caliber and demonstrate no wall thickening. The appendix appears normal. VESSELS: There is no aneurysmal dilatation of the abdominal aorta. The IVC appears normal. Mild atherosclerosis of the abdominal aorta and its branches. PERITONEUM/RETROPERITONEUM/LYMPH NODES: No ascites or free air, no fluid collection. Stable left pelvic sidewall lymph node 1.3 cm in maximum short axis dimension (series 301, image 200). Stable possible conglomerate left superficial inguinal lymph node measures 1.8 cm in maximum short axis dimension (series 301, image 212). An additional stable left superficial inguinal lymph node measures 1.7 cm in maximum short axis dimension (series 301, image 196). Additionally, there are prominent subcentimeter retroperitoneal lymph nodes which are primarily found superiorly to the level of the common iliac arteries. BONE AND SOFT TISSUE: Soft tissue tract within the medial left gluteal wall which appears to extend to the anus (series 301, image 240). Skin thickening within the posterosuperior right thigh up to 1.1 cm (series 301, image 249). Left gluteal skin thickening up to 2.3 cm (series 301, image 233). Stable size of a left gluteal mass involving the left gluteus randell and left gluteus minimus which currently measures 12.8 x 9.0 cm (series 301, image 252), previously measuring 13.4 by 8.9 on 11/08/2024. There is an exophytic nodule measuring 4.5 x 3.4 cm (series 301, image 275) extending posteriorly from the posterior left superior thigh which is continuous with the dominant left gluteal mass (series 303, image 113). No suspicious osseous lesions are identified. Impression: 1. Stable size of a left gluteal mass involving left gluteus randell and minimus which is in continuity with a more inferior exophytic posterior nodule, in keeping with patient's known pathological diagnosis of squamous cell carcinoma. 2. There are enlarged/prominent left superficial inguinal, left pelvic sidewall, and retroperitoneal lymph nodes extending superiorly to the level of the common iliac arteries. These may represent sites of metastatic disease or may be reactive secondary to patient's history of hidradenitis suppurativa. PET-CT is recommended to assist in further delineation. 3. Soft tissue tract within the medial left gluteal wall with apparent extension to the anus which may represent a perianal fistula. MRI can be considered for further evaluation. 4. There is a 4 mm pulmonary nodule within left upper lobe of indeterminate chronicity. Attention on follow-up examinations is recommended. 5. Hwgo-ggmqkst-bqro-right skin thickening extending from the sacral region to the proximal thigh, in keeping with patient's background of hydradenitis suppurativa. 6. Xsfy-df-atydpghb upper lobe predominant centrilobular and paraseptal emphysema. I personally reviewed the images/study and I agree with the findings as stated by Elenita Munroe MD (PGY-2). This study was interpreted at [facility], [place], [place]. MACRO: None Signed by: Ravin Hyatt 11/19/2024 4:54 PM Dictation workstation: [id number] Physical Exam General: Resting in bed on his rigth side, no acute distress. Cardiovascular: RRR, no r/m/g Pulmonary: Lungs clear to auscultation bilaterally. No wheezes/ rhonchi/ rales GI: firm, but not rigid, non-tender : No Wallace cath Extremities: No LE edema. Skin: Left buttock wound with increased amount exudate, malodorous. L thigh raised lesion with worsening surrounding erythema and thick yellow exudate. Wound looking the same like yesterday Relevant Results Results for orders placed or performed during the hospital encounter of 11/10/24 (from the past 24 hours) CBC and Auto Differential Result Value Ref Range WBC 10.7 4.4 - 11.3 x10*3/uL nRBC 0.0 0.0 - 0.0 /100 WBCs RBC 3.29 (L) 4.50 - 5.90 x10*6/uL Hemoglobin 8.7 (L) 13.5 - 17.5 g/dL Hematocrit 28.6 (L) 41.0 - 52.0 % MCV 87 80 - 100 fL MCH 26.4 26.0 - 34.0 pg MCHC 30.4 (L) 32.0 - 36.0 g/dL RDW 16.1 (H) 11.5 - 14.5 % Platelets 818 (H) 150 - 450 x10*3/uL Neutrophils % 66.3 40.0 - 80.0 % Immature Granulocytes %, Automated 0.3 0.0 - 0.9 % Lymphocytes % 17.2 13.0 - 44.0 % Monocytes % 10.4 2.0 - 10.0 % Eosinophils % 4.9 0.0 - 6.0 % Basophils % 0.9 0.0 - 2.0 % Neutrophils Absolute 7.12 1.20 - 7.70 x10*3/uL Immature Granulocytes Absolute, Automated 0.03 0.00 - 0.70 x10*3/uL Lymphocytes Absolute 1.84 1.20 - 4.80 x10*3/uL Monocytes Absolute 1.11 (H) 0.10 - 1.00 x10*3/uL Eosinophils Absolute 0.52 0.00 - 0.70 x10*3/uL Basophils Absolute 0.10 0.00 - 0.10 x10*3/uL Renal Function Panel Result Value Ref Range Glucose 109 (H) 74 - 99 mg/dL Sodium 136 136 - 145 mmol/L Potassium 3.8 3.5 - 5.3 mmol/L Chloride 99 98 - 107 mmol/L Bicarbonate 30 21 - 32 mmol/L Anion Gap 11 10 - 20 mmol/L Urea Nitrogen 15 6 - 23 mg/dL Creatinine 1.38 (H) 0.50 - 1.30 mg/dL eGFR 62 >60 mL/min/1.73m*2 Calcium 9.1 8.6 - 10.6 mg/dL Phosphorus 3.3 2.5 - 4.9 mg/dL Albumin 3.2 (L) 3.4 - 5.0 g/dL Magnesium Result Value Ref Range Magnesium 1.88 1.60 - 2.40 mg/dL Assessment/Plan Kevan La is a 49 y.o. male with refractory hidradenitis supprativa (HS) not responding to povorcitinib (RCT candidate), apremilast, isotretinoin, adalimumab, infliximab, moxifloxacin/metronidazole, minocyclin, clindamycin, rifampin, augmentin and doxycycline, transferred from [facility] regarding 14cm gluteal fluid collection. He was recently admitted for the same L. gluteal abscess which was 9.2 x 5.7 x 13.2cm in size s/p I&D. Pending speciation of culture he was discharged with a course of Unasyn per ID however returns due to gluteal pain and questionable sepsis, CT Pelvis at OSH with large ulcerative wound at the left buttock with an adjacent 14.9 cm enhancing mass involving the left gluteal muscles and overlying subcutaneous tissue, larger than CT in 08/2024, which may represent failure of current antibiotic regimen. ACS surgery engaged, recommended no surgical interventions. S/p Bx of peripheral nodule and tissue Cx on 11/12/24 c/f SCC (primary vs metastatic lesion). Additional biopsies taken by dermatology 11/15 showed invasive SCC. Tumor board meeting 11/18/24 recommended initial management by Med Onc. No immediate surgical interventions recommended. PET CT w/ lymph node bx deferred to outpatient. Endocrinology previously engaged for hypercalcemia and hematology previously following for M spike on SPEP both signed off. Hypercalcemia is likely PTHrP mediated and related to malignany. No further endo or heme work up recommended. Derm path was unable to stain obtained bx for PTHrP. On 11/21/24 new wound infection suspected, given increased malodorous discharge from the wounds and worsening neutrophil-predominant leukocytosis. Pt's abx was broaden to Zosyn, wound and blood Cx in progress. Wound cx: numerous GNB an Gram positive 11/24 Updates: - repeated wound Cx, obtained blood Cx x 2: wound culture: abundant GNB. Other cx: GNB and gram positive. Pending final result - discontinued Augmentin 11/22, started Zosyn - Wound care and derm following -if drop in blood pressure start vancomycin -will reach out tomorrow for oncology for oncology w/up. Patient anxious about his malignancy stage and treatment. 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 Jiang [place] [facility] pending transport capabilities of eventual SNF - discussed that seeking care with a local oncologist would be reasonable as well - If needed by SNF: tentative treatment would be an immunotherapy infusion approximately 2 hrs of chair time once every 21 days #Cancer and wound related pain :: Supportive Onc following :: current regimen: 50 mcg fentanyl patch q 72h +15 mg oxycodone q3h PRN for severe pain + 10 mg oxycodone q3h PRN for moderate pain + 1.0 mg IV hydromorphone q2h PRN for BT pain #Gluteal wound s/p abscess I&D 10/13 #C/f New wound infection #Refractory hidradenitis suppurativa #Deep tissue SSTI #Leukocytosis - worsening ::CT Pelvis 11/08/24: Large ulcerative wound at the left buttock with an adjacent 14.9 cm enhancing mass involving the left gluteal muscles and overlying subcutaneous tissue, larger than CT in 08/2024 :: Last dose of Povorcitanib 10/10 :: Blood Cx from 11/10 NGTD :: Tissue Cx from 11/12 growing rare proteus mirabilis, Augmentin susceptible :: Quant TB, HIV, Hep B surface antigen/antibody, Hep B core antibody, and Hep C testing-- all negative :: V/Z (11/08 - 11/14) :: Stopped PO Augmentin 875 BID (11/14-11/22/24) :: 11/21 New wound infection suspected Plan: - repeat wound Cx and obtain blood Cx x 2. Wound cs: GNB and Gram positive - Wound care consulted - stop Augmentin, start Zosyn - Holding home PO iron iso possible infection - alerted Derm about suspicion for infection, wound care recs requested - Previous Dermatology recs: - Continue hibiclens wash BID, topical clindamycin BID, and wound care - Follow up outpatient with Dr. Valentino or Apolinar to start immunotherapy #Hypotension :: appears long standing on chart review, pt confirmed hx of low BPs :: normal TSH - CTM #Hypercalcemia - resolved ::presented with CoCa 12.5; iCa 1.69; 24 hr urine Ca 384 (elevated) ::PTH <6.3 ::PTHrP elevated ::25-OH vit D 79; 1.25-OH vit D 35.9 :: SPEP with M protein spike: monoclonal free lambda light chains in beta region :: UPEP wnl :: Elevated IgA; IgG and IgM wnl :: TSH wnl :: S/p pamidronate 90 mg IV 11/12/24 :: Heme signed off :: AL stain negative - Endocrine signed off with final recs: - if hypercalcemia reoccurs, can give 90 mg iv pamidronate 1-2 weeks after initial admin. (November 19 - ). #Nicotine Use - Continue home Chantix #Subacute PARUL - improving ::Cr ~1.6 on last admission, Cr continues to improve ::On prior admission was evaluated for this with normal UA, CT with no hydronephrosis, felt to be 2/2 NSAID use for HS ::A1c and UA normal on admission at [facility] ::FeUrea 48.2% (>35=> suggestive of intrinsic renal disease) - Avoid nephrotoxic drug, hypotension, sepsis, dehydration - Continuing to encourage oral hydration and monitor serum calcium #Bladder Calculi ::Incidentally noted on CT Pelvis from OSH, asymptomatic, max diam is 1.5 cm #Normocytic Anemia #Folate Deficiency :: Hgb 10.4 at [facility], Hgb 8.8 on admission, Hgb 9.0 today :: 10/10/24: decr TIBC 218 and Fe 24; normal ferritin 259 :: B9 decreased at 4.6, B12 328 (wnl) :: Holding home PO iron :: pt consented for blood transfusion on 11/13/24 - continue folate supplementation #Thrombocytosis :: reactive +/- iron deficiency component - CTM F: none E: Keep mg >2, phos >3 and K >4 N: Regular A: PIV DVT ppx: lovenox GI ppx: None Bowel care: Sennosides, Miralax, lactulose Code Status: Full Code (confirmed on admission) Jeremy Edward MD Cosigned by Gilbert Sylvester MD at 11/24/2024 11:25 AM EDT Associated attestation - Gilbert Sylvester MD - 11/24/2024 11:25 AM EDT I saw and evaluated the patient. I personally obtained the gomez and critical portions of the history and physical exam or was physically present for gomez and critical portions performed by the resident/fellow. I reviewed the resident/fellow's documentation and discussed the patient with the resident/fellow. I agree with the resident/fellow's medical decision making as documented in the note. Kevan La is a 49 y.o. male on day 13 of admission presenting with No Principal Problem: There is no principal problem currently on the Problem List. Please update the Problem List and refresh.. Subjective Patient reports improvement in his pain. No fever or chills. No other complaints. Objective Last Recorded Vitals BP 105/65 Pulse 77 Temp 36.5 C (97.7 F) Resp 18 Wt 104 kg (230 lb) SpO2 97% Intake/Output last 3 Shifts: Intake/Output Summary (Last 24 hours) at 11/23/2024 1153 Last data filed at 11/23/2024 0800 Gross per 24 hour Intake -- Output 700 ml Net -700 ml Admission Weight Weight: 104 kg (230 lb) (11/11/24 0942) Daily Weight 11/11/24 : 104 kg (230 lb) Image Results CT chest abdomen pelvis w IV contrast Narrative: Interpreted By: Ravin Hyatt and Omar Mahmoud STUDY: CT CHEST ABDOMEN PELVIS W IV CONTRAST; 11/19/2024 2:43 pm INDICATION: Signs/Symptoms:new dx of invasive SCC, eval for mets. Per EMR: Patient with history of hydradenitis suppurativa with chronic left gluteal wound and recent biopsy positive for well-differentiated invasive squamous cell carcinoma. COMPARISON: CT pelvis 11/08/2024. ACCESSION NUMBER(S): [id number] ORDERING CLINICIAN: CLAUDIO PLUNKETT TECHNIQUE: CT of the chest, abdomen, and pelvis was performed. Contiguous axial images were obtained at 3 mm slice thickness through the chest, abdomen and pelvis. Coronal and sagittal reconstructions at 3 mm slice thickness were performed. 90 ML of Omnipaque 350 was administered intravenously without immediate complication. FINDINGS: CHEST: LUNG/PLEURA/LARGE AIRWAYS: [id number] upper lobe predominant centrilobular and paraseptal emphysema. Right basilar atelectasis/scarring. There is a 4 mm pulmonary nodule within the left upper lobe (series 301, image 17). There is no pneumothorax. There is no pleural effusion. VESSELS: Aorta and pulmonary arteries are normal caliber. No atherosclerotic changes of the aorta are identified. HEART: The heart is normal in size. There is no pericardial effusion. MEDIASTINUM AND DAREK: No mediastinal, hilar or axillary lymphadenopathy is present. The esophagus is unremarkable. CHEST WALL AND LOWER NECK: The soft tissues of the chest wall demonstrate no gross abnormality. The visualized thyroid gland appears within normal limits. ABDOMEN: LIVER: The liver measures 19.8 cm in craniocaudal dimension. There are no focal liver lesions. BILE DUCTS: The intrahepatic and extrahepatic ducts are not dilated. GALLBLADDER: The gallbladder is nondistended and without evidence of radiopaque stones. PANCREAS: The pancreas appears unremarkable without evidence of ductal dilatation or masses. SPLEEN: The spleen is normal in size without focal lesions. ADRENAL GLANDS: Bilateral adrenal glands appear normal. KIDNEYS AND URETERS: The kidneys are normal in size and enhance symmetrically. Mild fullness of the right extrarenal pelvis. No hydroureteronephrosis. No nephroureterolithiasis. No focal renal lesions. PELVIS: BLADDER: Bladder wall is not thickened. Multiple bladder wall diverticuli. REPRODUCTIVE ORGANS: The prostate is not enlarged. BOWEL: The stomach is unremarkable. The small and large bowel are normal in caliber and demonstrate no wall thickening. The appendix appears normal. VESSELS: There is no aneurysmal dilatation of the abdominal aorta. The IVC appears normal. Mild atherosclerosis of the abdominal aorta and its branches. PERITONEUM/RETROPERITONEUM/LYMPH NODES: No ascites or free air, no fluid collection. Stable left pelvic sidewall lymph node 1.3 cm in maximum short axis dimension (series 301, image 200). Stable possible conglomerate left superficial inguinal lymph node measures 1.8 cm in maximum short axis dimension (series 301, image 212). An additional stable left superficial inguinal lymph node measures 1.7 cm in maximum short axis dimension (series 301, image 196). Additionally, there are prominent subcentimeter retroperitoneal lymph nodes which are primarily found superiorly to the level of the common iliac arteries. BONE AND SOFT TISSUE: Soft tissue tract within the medial left gluteal wall which appears to extend to the anus (series 301, image 240). Skin thickening within the posterosuperior right thigh up to 1.1 cm (series 301, image 249). Left gluteal skin thickening up to 2.3 cm (series 301, image 233). Stable size of a left gluteal mass involving the left gluteus randell and left gluteus minimus which currently measures 12.8 x 9.0 cm (series 301, image 252), previously measuring 13.4 by 8.9 on 11/08/2024. There is an exophytic nodule measuring 4.5 x 3.4 cm (series 301, image 275) extending posteriorly from the posterior left superior thigh which is continuous with the dominant left gluteal mass (series 303, image 113). No suspicious osseous lesions are identified. Impression: 1. Stable size of a left gluteal mass involving left gluteus randell and minimus which is in continuity with a more inferior exophytic posterior nodule, in keeping with patient's known pathological diagnosis of squamous cell carcinoma. 2. There are enlarged/prominent left superficial inguinal, left pelvic sidewall, and retroperitoneal lymph nodes extending superiorly to the level of the common iliac arteries. These may represent sites of metastatic disease or may be reactive secondary to patient's history of hidradenitis suppurativa. PET-CT is recommended to assist in further delineation. 3. Soft tissue tract within the medial left gluteal wall with apparent extension to the anus which may represent a perianal fistula. MRI can be considered for further evaluation. 4. There is a 4 mm pulmonary nodule within left upper lobe of indeterminate chronicity. Attention on follow-up examinations is recommended. 5. Yfqt-[id number]-phsf-right skin thickening extending from the sacral region to the proximal thigh, in keeping with patient's background of hydradenitis suppurativa. 6. [id number] upper lobe predominant centrilobular and paraseptal emphysema. I personally reviewed the images/study and I agree with the findings as stated by Elenita Munroe MD (PGY-2). This study was interpreted at [facility], [place], [place]. MACRO: None Signed by: Ravin Hyatt 11/19/2024 4:54 PM Dictation workstation: [id number] Physical Exam General: Resting in bed on his rigth side, no acute distress. Cardiovascular: RRR, no r/m/g Pulmonary: Lungs clear to auscultation bilaterally. No wheezes/ rhonchi/ rales GI: firm, but not rigid, non-tender : No Wallace cath Extremities: No LE edema. Skin: Left buttock wound with increased amount exudate, malodorous. L thigh raised lesion with worsening surrounding erythema and thick yellow exudate. Wound looking the same like yesterday Relevant Results Results for orders placed or performed during the hospital encounter of 11/10/24 (from the past 24 hours) Blood Culture Specimen: Peripheral Venipuncture; Blood culture Result Value Ref Range Blood Culture Loaded on Instrument - Culture in progress Blood Culture Specimen: Peripheral Venipuncture; Blood culture Result Value Ref Range Blood Culture Loaded on Instrument - Culture in progress Tissue/Wound Culture/Smear Specimen: Wound/Tissue; Tissue/Biopsy Result Value Ref Range Tissue/Wound Culture/Smear Culture in progress Gram Stain (1+) Rare Polymorphonuclear leukocytes (A) Gram Stain (A) (4+) Abundant Mixed Gram positive and Gram negative bacteria Tissue/Wound Culture/Smear Specimen: Wound/Tissue; Tissue/Biopsy Result Value Ref Range Tissue/Wound Culture/Smear Culture in progress Gram Stain (3+) Moderate Polymorphonuclear leukocytes (A) Gram Stain (4+) Abundant Gram negative bacilli (A) CBC and Auto Differential Result Value Ref Range WBC 14.3 (H) 4.4 - 11.3 x10*3/uL nRBC 0.0 0.0 - 0.0 /100 WBCs RBC 3.51 (L) 4.50 - 5.90 x10*6/uL Hemoglobin 9.4 (L) 13.5 - 17.5 g/dL Hematocrit 30.1 (L) 41.0 - 52.0 % MCV 86 80 - 100 fL MCH 26.8 26.0 - 34.0 pg MCHC 31.2 (L) 32.0 - 36.0 g/dL RDW 16.3 (H) 11.5 - 14.5 % Platelets 844 (H) 150 - 450 x10*3/uL Neutrophils % 72.5 40.0 - 80.0 % Immature Granulocytes %, Automated 0.6 0.0 - 0.9 % Lymphocytes % 11.5 13.0 - 44.0 % Monocytes % 11.1 2.0 - 10.0 % Eosinophils % 3.5 0.0 - 6.0 % Basophils % 0.8 0.0 - 2.0 % Neutrophils Absolute 10.38 (H) 1.20 - 7.70 x10*3/uL Immature Granulocytes Absolute, Automated 0.08 0.00 - 0.70 x10*3/uL Lymphocytes Absolute 1.65 1.20 - 4.80 x10*3/uL Monocytes Absolute 1.59 (H) 0.10 - 1.00 x10*3/uL Eosinophils Absolute 0.50 0.00 - 0.70 x10*3/uL Basophils Absolute 0.11 (H) 0.00 - 0.10 x10*3/uL Renal Function Panel Result Value Ref Range Glucose 101 (H) 74 - 99 mg/dL Sodium 135 (L) 136 - 145 mmol/L Potassium 4.0 3.5 - 5.3 mmol/L Chloride 99 98 - 107 mmol/L Bicarbonate 25 21 - 32 mmol/L Anion Gap 15 10 - 20 mmol/L Urea Nitrogen 14 6 - 23 mg/dL Creatinine 1.36 (H) 0.50 - 1.30 mg/dL eGFR 63 >60 mL/min/1.73m*2 Calcium 9.3 8.6 - 10.6 mg/dL Phosphorus 3.0 2.5 - 4.9 mg/dL Albumin 3.4 3.4 - 5.0 g/dL Magnesium Result Value Ref Range Magnesium 1.94 1.60 - 2.40 mg/dL Assessment/Plan Kevan La is a 49 y.o. male with refractory hidradenitis supprativa (HS) not responding to povorcitinib (RCT candidate), apremilast, isotretinoin, adalimumab, infliximab, moxifloxacin/metronidazole, minocyclin, clindamycin, rifampin, augmentin and doxycycline, transferred from [facility] regarding 14cm gluteal fluid collection. He was recently admitted for the same L. gluteal abscess which was 9.2 x 5.7 x 13.2cm in size s/p I&D. Pending speciation of culture he was discharged with a course of Unasyn per ID however returns due to gluteal pain and questionable sepsis, CT Pelvis at OSH with large ulcerative wound at the left buttock with an adjacent 14.9 cm enhancing mass involving the left gluteal muscles and overlying subcutaneous tissue, larger than CT in 08/2024, which may represent failure of current antibiotic regimen. ACS surgery engaged, recommended no surgical interventions. S/p Bx of peripheral nodule and tissue Cx on 11/12/24 c/f SCC (primary vs metastatic lesion). Additional biopsies taken by dermatology 11/15 showed invasive SCC. Tumor board meeting 11/18/24 recommended initial management by Med Onc. No immediate surgical interventions recommended. PET CT w/ lymph node bx deferred to outpatient. Endocrinology previously engaged for hypercalcemia and hematology previously following for M spike on SPEP both signed off. Hypercalcemia is likely PTHrP mediated and related to malignany. No further endo or heme work up recommended. Derm path was unable to stain obtained bx for PTHrP. On 11/21/24 new wound infection suspected, given increased malodorous discharge from the wounds and worsening neutrophil-predominant leukocytosis. Pt's abx was broaden to Zosyn, wound and blood Cx in progress. 11/23 Updates: - repeated wound Cx, obtained blood Cx x 2: wound culture: abundant GNB. 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 [facility] [place] capabilities of eventual SNF - discussed that seeking care with a local oncologist would be reasonable as well - If needed by SNF: tentative treatment would be an immunotherapy infusion approximately 2 hrs of chair time once every 21 days #Cancer and wound related pain :: Supportive Onc following :: current regimen: 50 mcg fentanyl patch q 72h +15 mg oxycodone q3h PRN for severe pain + 10 mg oxycodone q3h PRN for moderate pain + 1.0 mg IV hydromorphone q2h PRN for BT pain #Gluteal wound s/p abscess I&D 10/13 #C/f New wound infection #Refractory hidradenitis suppurativa #Deep tissue SSTI #Leukocytosis - worsening ::CT Pelvis 11/08/24: Large ulcerative wound at the left buttock with an adjacent 14.9 cm enhancing mass involving the left gluteal muscles and overlying subcutaneous tissue, larger than CT in 08/2024 :: Last dose of Povorcitanib 10/10 :: Blood Cx from 11/10 NGTD :: Tissue Cx from 11/12 growing rare proteus mirabilis, Augmentin susceptible :: Quant TB, HIV, Hep B surface antigen/antibody, Hep B core antibody, and Hep C testing-- all negative :: V/Z (11/08 - 11/14) :: Stopped PO Augmentin 875 BID (11/14-11/22/24) :: 3/6 New wound infection suspected Plan: - repeat wound Cx and obtain blood Cx x 2 - Wound care consulted - stop Augmentin, start Zosyn - Holding home PO iron iso possible infection - alerted Derm about suspicion for infection, wound care recs requested - Previous Dermatology recs: - Continue hibiclens wash BID, topical clindamycin BID, and wound care - Follow up outpatient with Dr. Valentino or Apolinar to start immunotherapy #Hypotension :: appears long standing on chart review, pt confirmed hx of low BPs :: normal TSH - CTM #Hypercalcemia - resolved ::presented with CoCa 12.5; iCa 1.69; 24 hr urine Ca 384 (elevated) ::PTH <6.3 ::PTHrP elevated ::25-OH vit D 79; 1.25-OH vit D 35.9 :: SPEP with M protein spike: monoclonal free lambda light chains in beta region :: UPEP wnl :: Elevated IgA; IgG and IgM wnl :: TSH wnl :: S/p pamidronate 90 mg IV 11/12/24 :: Heme signed off :: AL stain negative - Endocrine signed off with final recs: - if hypercalcemia reoccurs, can give 90 mg iv pamidronate 1-2 weeks after initial admin. (November 19 - ). #Nicotine Use - Continue home Chantix #Subacute PARUL - improving ::Cr ~1.6 on last admission, Cr continues to improve ::On prior admission was evaluated for this with normal UA, CT with no hydronephrosis, felt to be 2/2 NSAID use for HS ::A1c and UA normal on admission at [facility] ::FeUrea 48.2% (>35=> suggestive of intrinsic renal disease) - Avoid nephrotoxic drug, hypotension, sepsis, dehydration - Continuing to encourage oral hydration and monitor serum calcium #Bladder Calculi ::Incidentally noted on CT Pelvis from OSH, asymptomatic, max diam is 1.5 cm #Normocytic Anemia #Folate Deficiency :: Hgb 10.4 at [facility], Hgb 8.8 on admission, Hgb 9.0 today :: 10/10/24: decr TIBC 218 and Fe 24; normal ferritin 259 :: B9 decreased at 4.6, B12 328 (wnl) :: Holding home PO iron :: pt consented for blood transfusion on 11/13/24 - continue folate supplementation #Thrombocytosis :: reactive +/- iron deficiency component - CTM F: none E: Keep mg >2, phos >3 and K >4 N: Regular A: PIV DVT ppx: lovenox GI ppx: None Bowel care: Sennosides, Miralax, lactulose Code Status: Full Code (confirmed on admission) Jeremy Edward MD Cosigned by Gilbert Sylvester MD at 11/24/2024 10:51 AM EDT Associated attestation - Gilbert Sylvester MD - 11/24/2024 10:51 AM EDT I saw and evaluated the patient. I personally obtained the gomez and critical portions of the history and physical exam or was physically present for gomez and critical portions performed by the resident/fellow. I reviewed the resident/fellow's documentation and discussed the patient with the resident/fellow. I agree with the resident/fellow's medical decision making as documented in the note. DERMATOLOGY CONSULT PROGRESS NOTE Name: Kevan La : 1975 Subjective Patient lying in bed. Says his pain is okay at the moment, but was not well controlled overnight. Denies any new lesions. Objective Vitals: 11/22/24 0628 11/22/24 1310 11/22/24 1311 11/22/24 1527 BP: 92/52 105/65 94/61 104/61 BP Location: Right arm Patient Position: Lying Pulse: 81 71 74 77 Resp: 18 Temp: 36.4 C (97.6 F) 36.8 C (98.2 F) TempSrc: Temporal SpO2: 98% 98% 98% 96% Weight: Height: Exam Physical Exam GEN: no acute distress NEURO: moving all extremities EYES: conjunctiva and eyelids normal. No conjunctival injection or erosions appreciated ENT: - Lips: normal - Teeth/gums: normal - Oropharynx: normal tongue and mucosa NECK: normal and symmetric. CV: no varicosities, warmth or tenderness of extremities. EXTREMITIES: no distal digital clubbing, cyanosis, petechiae SKIN: A full body skin exam including scalp, face, eyes, ears, neck, trunk, bilateral upper & lower extremities, toenails and fingernails were examined with the following findings: On the bilateral buttocks and thigh are wound dressings covering the nodules and draining wounds Medications: Scheduled Meds: acetaminophen, 975 mg, oral, TID chlorhexidine, , Topical, BID clindamycin, , Topical, BID enoxaparin, 40 mg, subcutaneous, q24h fentaNYL, 1 patch, transdermal, q72h folic acid, 1 mg, oral, Daily gabapentin, 300 mg, oral, Nightly lactulose, 20 g, oral, BID melatonin, 3 mg, oral, Nightly multivitamin with minerals, 1 tablet, oral, Daily piperacillin-tazobactam, 3.375 g, intravenous, q6h polyethylene glycol, 17 g, oral, BID sennosides-docusate sodium, 2 tablet, oral, BID varenicline tartrate, 1 mg, oral, BID Continuous Infusions: PRN Meds: PRN medications: bisacodyl, HYDROmorphone, naloxone, ondansetron, oxyCODONE, oxyCODONE, prochlorperazine Results: Results for orders placed or performed during the hospital encounter of 11/10/24 (from the past 24 hours) Tissue/Wound Culture/Smear Specimen: Wound/Tissue; Tissue/Biopsy Result Value Ref Range Tissue/Wound Culture/Smear Culture in progress Gram Stain No polymorphonuclear leukocytes seen (A) Gram Stain (A) (4+) Abundant Mixed Gram positive and Gram negative bacteria CBC and Auto Differential Result Value Ref Range WBC 13.5 (H) 4.4 - 11.3 x10*3/uL nRBC 0.0 0.0 - 0.0 /100 WBCs RBC 3.24 (L) 4.50 - 5.90 x10*6/uL Hemoglobin 8.7 (L) 13.5 - 17.5 g/dL Hematocrit 27.8 (L) 41.0 - 52.0 % MCV 86 80 - 100 fL MCH 26.9 26.0 - 34.0 pg MCHC 31.3 (L) 32.0 - 36.0 g/dL RDW 16.0 (H) 11.5 - 14.5 % Platelets 780 (H) 150 - 450 x10*3/uL Neutrophils % 76.1 40.0 - 80.0 % Immature Granulocytes %, Automated 0.3 0.0 - 0.9 % Lymphocytes % 10.7 13.0 - 44.0 % Monocytes % 9.5 2.0 - 10.0 % Eosinophils % 2.7 0.0 - 6.0 % Basophils % 0.7 0.0 - 2.0 % Neutrophils Absolute 10.28 (H) 1.20 - 7.70 x10*3/uL Immature Granulocytes Absolute, Automated 0.04 0.00 - 0.70 x10*3/uL Lymphocytes Absolute 1.44 1.20 - 4.80 x10*3/uL Monocytes Absolute 1.28 (H) 0.10 - 1.00 x10*3/uL Eosinophils Absolute 0.36 0.00 - 0.70 x10*3/uL Basophils Absolute 0.09 0.00 - 0.10 x10*3/uL Renal Function Panel Result Value Ref Range Glucose 105 (H) 74 - 99 mg/dL Sodium 134 (L) 136 - 145 mmol/L Potassium 4.1 3.5 - 5.3 mmol/L Chloride 100 98 - 107 mmol/L Bicarbonate 25 21 - 32 mmol/L Anion Gap 13 10 - 20 mmol/L Urea Nitrogen 15 6 - 23 mg/dL Creatinine 1.20 0.50 - 1.30 mg/dL eGFR 73 >60 mL/min/1.73m*2 Calcium 9.3 8.6 - 10.6 mg/dL Phosphorus 2.5 2.5 - 4.9 mg/dL Albumin 3.4 3.4 - 5.0 g/dL Magnesium Result Value Ref Range Magnesium 2.00 1.60 - 2.40 mg/dL Assessment/Plan Kevan La is a 49 y.o. 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 Dermatology was consulted for HS. Differential diagnoses: HS with transformation to squamous cell carcinoma Impression: Patient has had longstanding HS of the buttocks for >20 years. He was originally admitted for an HS flare due to increased pain and drainage from his wounds on the left buttocks. Previously he has failed many previous treatments including augmentin, doxycycline, minocycline, isotretinoin, clindamycin/rifampin, Humira, Remicade, staph decolonization for mupirocin, moxifloxacin/metronidazole, apremilast, and recently a clinical trial medication. Patient was biopsied by our service on 11/12/24 due to concern for rapid disease progression to rule out malignancy. The biopsy of the left thigh nodule was consistent with squamous cell carcinoma, we favor this is a metastatic cutaneous lesion as there is no epidermal attachment seen in this biopsy. The biopsy from the border of the ulcerated wound showed nonspecific inflammation on 11/12, but we still had high suspicion this ulcerative wound represents the primary squamous cell carcinoma. Additional biopsies from this lesion were obtained on 11/15 and showed invasive squamous cell carcinoma; there was a lack of epidermal attachment, but it is favored that this is the primary lesion. Endocrinology team raises concern for PTHrP production from the malignancy. On review of the literature there are a few case reports of severe longstanding HS with subsequent development of SCC and hypercalcemia with PTHrP production from the tumor, albeit higher PTHrP levels than in the case of our patient. These patients had a poor prognosis and also had squamous cell carcinoma metastases identified on imaging to the lung and lymph nodes, thus we suggest further imaging work up for this patient such as CT chest. Additionally patient is experiencing extreme pain and should be seen by supportive onc/palliative medicine for pain recommendations. Patient was presented at cutaneous malignancy tumor board conference on Saturday 11/18 and it was recommended that he follow up outpatient with Dr. Valentino or Dr. Jiang to start immunotherapy before addressing the tumors surgically. Additionally, patient did not recall having his diagnosis of SCC discussed with him, so this was again discussed today along with the recommendations. 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 Wound culture on 11/21 growing (4+) abundant mixed gram positive and gram negative bacteria. Because of this, augmentin (which he was on for Proteus seen on wound culture from 11/12) was switched to Zosyn today. Recommendations: - Recommend imaging work up as indicated for possible metastases - Continue pain management per supportive onc - Follow up outpatient with Dr. Valentino or Apolinar to start immunotherapy - Continue hibiclens wash BID, topical clindamycin BID, and wound care - Consult Wound Care - Ok to discharge once pain is controlled The patient was discussed with attending physician Dr. Mesa. The assessment and plan was communicated to the care team. Thank you for the consultation and for the opportunity to contribute to the care of this patient. Torres Bardales MD PGY-2, Dermatology I saw and evaluated the patient. I personally obtained the gomez and critical portions of the history and physical exam or was physically present for gomez and critical portions performed by the resident. I reviewed the resident's documentation and discussed the patient with the resident. I agree with the resident's medical decision making as documented in the note. Lauri Mesa MD Physical Therapy Physical Therapy Treatment Patient Name: Kevan La Department: [place] [id number] Room: [facility]/319-A Today's Date: 11/22/2024 Time Calculation Start Time: 1310 Stop Time: 1324 Time Calculation (min): 14 min Assessment/Plan PT Assessment PT Assessment Results: Decreased strength, Decreased endurance, Decreased mobility, Pain Rehab Prognosis: Good Barriers to Discharge Home: Caregiver assistance, Physical needs Caregiver Assistance: Patient lives alone and/or does not have reliable caregiver assistance Physical Needs: Stair navigation into home limited by function/safety, Ambulating household distances limited by function/safety, High falls risk due to function or environment End of Session Communication: Bedside nurse Assessment Comment: Despite anticipation of pain with mobility pt. participated. Pt. limited however due to being unable to sit or lie supine to work on ther ex. 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 Pt. has been recommended for mod intensity post acute End of Session Patient Position: Bed, 3 rail up, Alarm off, not on at start of session PT Plan Inpatient/Swing Bed or Outpatient: Inpatient PT Plan Treatment/Interventions: Bed mobility, Transfer training, Gait training, Therapeutic exercise, Therapeutic activity PT Plan: Ongoing PT PT Frequency: 3 times per week PT Discharge Recommendations: Moderate intensity level of continued care Equipment Recommended upon Discharge: Wheeled walker PT Recommended Transfer Status: Assist x1, Assistive device PT - OK to Discharge: Yes (POC/goals/discharge rec intensity created) General Visit Information: PT Visit PT Received On: 11/22/24 General Reason for Referral: gluteal fluid collection Past Medical History Relevant to Rehab: refractory hidradenitis supprativa, (L) gluteal wound s/p recent I&D Family/Caregiver Present: No Prior to Session Communication: Bedside nurse Patient Position Received: Bed, 3 rail up, Alarm off, not on at start of session General Comment: Pt.right sidelying in bed upon arrival. Pt. appearing sleepy however pt. had not yet been oob today per RN. Pt. eventually willing to participate. Initially pt. reports no pain but asking for pain meds due to having to participate in moving. Subjective Precautions: Precautions Hearing/Visual Limitations: glasses Medical Precautions: Fall precautions Date/Time Vitals Session Patient Position Pulse Resp SpO2 BP MAP (mmHg) 11/22/24 1310 Pre PT Lying 71 -- 98 % 105/65 -- 11/22/24 1311 During PT Standing 74 -- 98 % 94/61 -- Vital Signs Comment: Pt. states he is unable to sit Objective Pain: Pain Assessment Pain Assessment: 0-10 0-10 (Numeric) Pain Score: (Initially no complaints - end of session 9 out of 10 - RN alerted.) Cognition: Cognition Overall Cognitive Status: Within Functional Limits Orientation Level: Oriented X4 Coordination: Postural Control: Postural Control Posture Comment: favors lean to (R) in bed and with sitting/limiting weight through (L) buttocks Static Sitting Balance Static Sitting-Balance Support: (Pt. unwilling to attempt sitting) Static Standing Balance Static Standing-Balance Support: Bilateral upper extremity supported Static Standing-Level of Assistance: Contact guard (Heavy reliance on walker) Extremity/Trunk Assessments: Activity Tolerance: Activity Tolerance Endurance: Decreased tolerance for upright activites Treatments: Bed Mobility Bed Mobility: Yes Bed Mobility 1 Bed Mobility 1: (Sidelying to standing as pt. unwilling to sit. - close sba/light cga.) Bed Mobility 2 Bed Mobility 2: (Standing to lying- sba) Ambulation/Gait Training Ambulation/Gait Training Performed: Yes Ambulation/Gait Training 1 Surface 1: (Pt. amb. 70' using a wh. walker and close sba - Pt. leans heavily onto walker- cues to correct however pt. states that Left le is too painful during weight bearing therefore continued to heavily lean.) Quality of Gait 1: Forward flexed posture, Diminished heel strike (Decreased step height.) Comments/Distance (ft) 1: 70' Transfers Transfer: Yes Transfer 1 Transfer From 1: Bed to, Stand to Transfer to 1: Stand, Bed Transfer Level of Assistance 1: (Light cga to steady as pt. unorthodoxically transferring to avoid weight thru left side.) Outcome Measures: [facility] Basic Mobility Turning from your back to your side while in a flat bed without using bedrails: A little Moving from lying on your back to sitting on the side of a flat bed without using bedrails: A little Moving to and from bed to chair (including a wheelchair): A little Standing up from a chair using your arms (e.g. wheelchair or bedside chair): A little To walk in hospital room: A little Climbing 3-5 steps with railing: Total Basic Mobility - Total Score: 16 Education Documentation Mobility Training, taught by Martha Barrios PTA at 11/22/2024 1:46 PM. Learner: Patient Readiness: Acceptance Method: Explanation, Demonstration Response: Needs Reinforcement Comment: Cues given to avoid excessive lean on walker. Education Comments No comments found. OP EDUCATION: Encounter Problems Encounter Problems (Active) Balance STG - Maintains dynamic standing balance with upper extremity support with CGA-> close (S), LRAD. (Progressing) Start: 11/12/24 Expected End: 11/26/24 Mobility STG - Patient will ambulate with CGA-> close (S), LRAD, 50 ft x2. (Progressing) Start: 11/12/24 Expected End: 11/26/24 PT Transfers STG - Patient will perform bed mobility with (S)-> (I). (Progressing) Start: 11/12/24 Expected End: 11/26/24 STG - Patient will transfer sit to and from stand CGA-> close (S). (Progressing) Start: 11/12/24 Expected End: 11/26/24 Pain - Adult Cosigned by Doris Guzman PT at 11/22/2024 3:05 PM EST [facility] ONCOLOG[facility] INPATIENT FOLLOW-UP SERVICE DATE: 11/22/24 Updates and Recommendations (11/22/24): Pt currently denies any pain. No recommended modifications at this time. Change scheduled lactulose 20g PO TID [still states he has not had a BM since 11/17, not completely sure though] ASSESSMENT/PLAN: Kevan La is a 49 y.o. male with peripheral nodule and tissue SCC (primary vs metastatic lesion). PMHx significant for refractory hidradenitis supprativa (HS). Admitted 11/10/2024 for further evaluation and management of 14cm gluteal fluid collection (previously s/p I&D September 2024 at ). Supportive and Palliative Oncology is consulted for pain management. Neoplasm Related Pain L gluteal pain 2/2 known malignancy. Pain type: Somatic, possibly neuropathic Pain control: Well controlled Home regimen: oxycodone IR 5mg q6h PRN Intolerances: None Risk factors: None Renal and hepatic function WNL. Continue scheduled acetaminophen 975mg PO q8h Continue scheduled fentanyl 50mcg/h TD patch [id number] 11/20/24 Continue gabapentin 300mg PO once daily HS Continue oxycodone IR 10mg PO q3h PRN for moderate pain Continue oxycodone IR 15mg PO q3h PRN for severe pain Continue hydromorphone 1mg IV q2h PRN for breakthrough pain Nausea At risk for nausea with vomiting related to opioids. Home regimen: None EKG reviewed from 11/10/24, QTc 416. No more recent EKG uploaded to EMR. Currently denies n/v. Continue ondansetron 8mg IV q8h PRN for n/v, first line Continue prochlorperazine 10mg IV q6h PRN for n/v, second line Constipation At risk for constipation related to medication side effects (including opioids), currently constipated. Usual bowel pattern: Every day Home regimen: None LBM: 11/17/24 per pt, pt denies having recent BM despite one being documented on 11/21/24. Pt expressing some uncertainty though. Continue scheduled Miralax 17g PO BID Continue scheduled Leda-Colace 2 tab PO BID Change scheduled lactulose 20g PO TID One time PRN dose of bisacodyl 10mg IN ordered per primary Goal to have BM without straining q48-72h, adjust regimen as needed Encourage mobility as tolerated, PT/OT following Disposition: Please start the process of having prior authorization with meds to beds deliver medications to patient prior to discharge via [facility] pharmacy. Prescriptions will need to be sent 48-72 hours prior to discharge so that a prior authorization can be completed. Discharge date pending resolution of acute hospital issues. Patient does not currently qualify for an appointment with outpatient Supportive Oncology--He first needs to establish with outpatient Oncology. SIGNATURE: TRAVIS Huizar PAGER/CONTACT: Contact information: [facility]ive [facility] Palliative Oncology Monday-Monday 8 AM-5 PM [email or web address] Secure chat or pager [phone]. After hours and weekends: pager [phone] == SUBJECTIVE: Pain Assessment: I have no pain right now. Opioid Requirements Past 24h opioid requirements: (11/21-11/22, [id number]) fentanyl 50mcg/h TD patch x 1 = 100 OME oxycodone IR 10mg x 1 = 12.5 OME hydromorphone 1mg IV x 3 = 3mg IV = 37.5 OME Total 24h OME use: 150 OME Symptom Assessment: Nausea: a little Constipation: somewhat Information obtained from: chart review, interview of patient, and discussion with primary team ____ OBJECTIVE: Lab Results Component Value Date WBC 13.5 (H) 11/22/2024 HGB 8.7 (L) 11/22/2024 HCT 27.8 (L) 11/22/2024 MCV 86 11/22/2024 PLT 780 (H) 11/22/2024 Lab Results Component Value Date GLUCOSE 105 (H) 11/22/2024 CALCIUM 9.3 11/22/2024 NA 134 (L) 11/22/2024 K 4.1 11/22/2024 CO2 25 11/22/2024 CL 100 11/22/2024 BUN 15 11/22/2024 CREATININE 1.20 11/22/2024 Lab Results Component Value Date ALT 20 11/17/2024 AST 13 11/17/2024 ALKPHOS 83 11/17/2024 BILITOT 0.3 11/17/2024 Estimated Creatinine Clearance: 96.4 mL/min (by C-G formula based on SCr of 1.2 mg/dL). Scheduled medications acetaminophen, 975 mg, oral, TID chlorhexidine, , Topical, BID clindamycin, , Topical, BID enoxaparin, 40 mg, subcutaneous, q24h fentaNYL, 1 patch, transdermal, q72h folic acid, 1 mg, oral, Daily gabapentin, 300 mg, oral, Nightly lactulose, 20 g, oral, BID melatonin, 3 mg, oral, Nightly multivitamin with minerals, 1 tablet, oral, Daily piperacillin-tazobactam, 3.375 g, intravenous, q6h polyethylene glycol, 17 g, oral, BID sennosides-docusate sodium, 2 tablet, oral, BID varenicline tartrate, 1 mg, oral, BID Continuous medications PRN medications bisacodyl, 10 mg, Once PRN HYDROmorphone, 1 mg, q2h PRN naloxone, 0.2 mg, PRN ondansetron, 8 mg, q8h PRN oxyCODONE, 10 mg, q3h PRN oxyCODONE, 15 mg, q3h PRN prochlorperazine, 10 mg, q6h PRN PHYSICAL EXAMINATION: Vital Signs: Vital signs reviewed Visit Vitals BP 92/52 (BP Location: Right arm, Patient Position: Lying) Pulse 81 Temp 36.4 C (97.6 F) (Temporal) Resp 18 0-10 (Numeric) Pain Score: 10 - Worst possible pain Physical Exam Vitals reviewed. Constitutional: Comments: Alert, awake, thin gentleman laying on his R side in bed. No signs of acute distress. Pleasant, cooperative, and participating in interview. HENT: Head: Comments: Normocephalic, atraumatic. Eyes: Comments: Sclera clear, EOM intact. Pulmonary: Comments: Symmetrical chest rise. Regular rate and depth of respirations. Room air. Abdominal: Comments: Abdomen non distended, non tender. Musculoskeletal: Comments: Generalized muscle weakness and atrophy. SHEPARD x4. No visible extremity edema. Skin: Comments: No lesions, rash, or abrasions present on visible skin. Skin color appropriate for ethnicity. Neurological: Comments: A&Ox4, follows commands, no apparent sensory deficits. Psychiatric: Comments: Mood and behavior appropriate. PALLIATIVE CARE ENCOUNTER: Supportive and Palliative Oncology encounter: Spoke with patient at bedside. Emotional support provided. Coordination of care: medication and symptom re-evaluation Medical Decision Making/Goals of Care/Advance Care Planning: (Per Emile Segovia, SENIOR DATABASE ENGINEER's, note on 11/16/24) Patient's current clinical condition, including diagnosis, prognosis, and management plan, and goals of care were discussed. Life limiting disease: SCC of UNK primary Family: Supportive though live in [place] Performance status: Moderate limitations due to pain Joys/meaning/strength: Family and [place] Understanding of health: 11/16: Demonstrates good prognostic understanding of disease process, understands plan will be determined once pathology results are in. (11/20/24) Spent time with active listening and validation of feelings. Pt very hesitant about opioids. Denies addiction history But I don't want to start now. Discussed he needs opioids at this time for pain control and QOL. Educated about difference of long acting fentanyl patch to short acting oxycodone and goal for better overall control and reduce PRN needs. Will provide better overnight control as well. Pt agreed to try this. Has goal of working with PT soon to start building strength back up. Information:Wants full disclosure Goals: symptom control and cancer directed therapy Worries and fears now and future: ongoing symptoms Code status discussion: Discussed previously and Full code Advance Directives Existence of Advance Directives: No - not interested Decision maker: Surrogate decision maker is Omkar robertson ([phone]) == Signature and billing: Medical complexity was high level due to due to complexity of problems, extensive data review, and high risk of management/treatment. I spent 50 minutes in the care of this patient which included chart review, interviewing patient/family, discussion with primary team, coordination of care, and documentation. Data: Diagnostic tests and information reviewed for today's visit: Conversation with primary team, Most recent labs, Most recent EKG, Medications Some elements copied from my note on 11/21/24, the elements have been updated and all reflect current decision making from today, 11/22/24. Plan of Care discussed with: Primary team, pt Thank you for asking Supportive and Palliative Oncology to assist with care of this patient. Recommendations will be communicated back to the consulting service by way of shared electronic medical record/secure chat/email or [id number]. We will continue to follow. Please contact us for additional questions or concerns. SIGNATURE: TRAVIS Huizar PAGER/CONTACT: Contact information: [facility]cology Monday-Monday 8 AM-5 PM, [email or web address] Secure chat or pager [phone]. After hours and weekends: pager [phone] Kevan La is a 49 y.o. male on day 12 of admission presenting with infected gluteal wound, SCC, hypercalcemia, and hypotension. Subjective Pt reports worsening pain around 2-3 AM. Still no BM (since 11/18/24). Pt wishes to try suppository as it worked well in the past. Nausea is overall well controlled, occasionally gets nauseous when the pain intensifies. Denies CP, SOB, vomiting, diarrhea, fevers, chills. Objective 24 Hour Vitals Temp: [36.4 C (97.6 F)-36.5 C (97.7 F)] 36.4 C (97.6 F) Heart Rate: [78-85] 81 Resp: [16-18] 18 BP: (91-104)/(46-62) 92/52 Temp (24hrs), Av.5 C (97.7 F), Min:36.4 C (97.6 F), Max:36.5 C (97.7 F) 24 hour Intake/Output Intake/Output Summary (Last 24 hours) at 11/22/2024 1117 Last data filed at 11/22/2024 0510 Gross per 24 hour Intake -- Output 1350 ml Net -1350 ml Exam: General: Resting in bed on his rigth side, no acute distress. HEENT: Normocephalic and atraumatic. EOMI, sclera non-icteric Cardiovascular: RRR, no r/m/g Pulmonary: Lungs clear to auscultation bilaterally. No wheezes/ rhonchi/ rales GI: firm, but not rigid, non-tender : No Wallace cath Extremities: No LE edema. Skin: Left buttock wound with increased amount exudate, malodorous. L thigh raised lesion with worsening surrounding erythema and thick yellow exudate. Neurologic: CN II-XII grossly intact. Moving extremities spontaneously Psych: Appears depressed. Labs CBC Results from last 72 hours Lab Units 11/22/24 0642 11/21/24 0534 11/20/24 0531 WBC AUTO x10*3/uL 13.5* 12.4* 11.4* HEMOGLOBIN g/dL 8.7* 8.6* 8.6* HEMATOCRIT % 27.8* 26.9* 28.4* PLATELETS AUTO x10*3/uL 780* 745* 771* BMP Results from last 72 hours Lab Units 11/22/24 0642 11/21/24 0534 11/20/24 0532 SODIUM mmol/L 134* 137 134* POTASSIUM mmol/L 4.1 4.0 4.2 CHLORIDE mmol/L 100 102 100 BUN mg/dL 15 14 15 CREATININE mg/dL 1.20 1.29 1.25 MAGNESIUM mg/dL 2.00 1.86 2.13 PHOSPHORUS mg/dL 2.5 2.7 2.8 Medications Scheduled Medications acetaminophen, 975 mg, oral, TID chlorhexidine, , Topical, BID clindamycin, , Topical, BID enoxaparin, 40 mg, subcutaneous, q24h fentaNYL, 1 patch, transdermal, q72h folic acid, 1 mg, oral, Daily gabapentin, 300 mg, oral, Nightly lactulose, 20 g, oral, BID melatonin, 3 mg, oral, Nightly multivitamin with minerals, 1 tablet, oral, Daily piperacillin-tazobactam, 3.375 g, intravenous, q6h polyethylene glycol, 17 g, oral, BID sennosides-docusate sodium, 2 tablet, oral, BID varenicline tartrate, 1 mg, oral, BID Continuous Medications PRN Medications PRN medications: bisacodyl, HYDROmorphone, naloxone, ondansetron, oxyCODONE, oxyCODONE, prochlorperazine Assessment/Plan Kevan La is a 49 y.o. male with refractory hidradenitis supprativa (HS) not responding to povorcitinib (RCT candidate), apremilast, isotretinoin, adalimumab, infliximab, moxifloxacin/metronidazole, minocyclin, clindamycin, rifampin, augmentin and doxycycline, transferred from [facility] regarding 14cm gluteal fluid collection. He was recently admitted for the same L. gluteal abscess which was 9.2 x 5.7 x 13.2cm in size s/p I&D. Pending speciation of culture he was discharged with a course of Unasyn per ID however returns due to gluteal pain and questionable sepsis, CT Pelvis at OSH with large ulcerative wound at the left buttock with an adjacent 14.9 cm enhancing mass involving the left gluteal muscles and overlying subcutaneous tissue, larger than CT in 08/2024, which may represent failure of current antibiotic regimen. ACS surgery engaged, recommended no surgical interventions. S/p Bx of peripheral nodule and tissue Cx on 11/12/24 c/f SCC (primary vs metastatic lesion). Additional biopsies taken by dermatology 11/15 showed invasive SCC. Tumor board meeting 11/18/24 recommended initial management by Med Onc. No immediate surgical interventions recommended. PET CT w/ lymph node bx deferred to outpatient. Endocrinology previously engaged for hypercalcemia and hematology previously following for M spike on SPEP both signed off. Hypercalcemia is likely PTHrP mediated and related to malignany. No further endo or heme work up recommended. Derm path was unable to stain obtained bx for PTHrP. On 11/21/24 new wound infection suspected, given increased malodorous discharge from the wounds and worsening neutrophil-predominant leukocytosis. Pt's abx was broaden to Zosyn, wound and blood Cx in progress. 11/22 Updates: - repeated wound Cx, obtained blood Cx x 2 - discontinued Augmentin, started Zosyn - Wound care consulted. Derm made aware. 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 [facility] [place] capabilities of eventual SNF - discussed that seeking care with a local oncologist would be reasonable as well - If needed by SNF: tentative treatment would be an immunotherapy infusion approximately 2 hrs of chair time once every 21 days #Cancer and wound related pain :: Supportive Onc following :: current regimen: 50 mcg fentanyl patch q 72h +15 mg oxycodone q3h PRN for severe pain + 10 mg oxycodone q3h PRN for moderate pain + 1.0 mg IV hydromorphone q2h PRN for BT pain #Gluteal wound s/p abscess I&D 10/13 #C/f New wound infection #Refractory hidradenitis suppurativa #Deep tissue SSTI #Leukocytosis - worsening ::CT Pelvis 11/08/24: Large ulcerative wound at the left buttock with an adjacent 14.9 cm enhancing mass involving the left gluteal muscles and overlying subcutaneous tissue, larger than CT in 08/2024 :: Last dose of Povorcitanib 10/10 :: Blood Cx from 11/10 NGTD :: Tissue Cx from 11/12 growing rare proteus mirabilis, Augmentin susceptible :: Quant TB, HIV, Hep B surface antigen/antibody, Hep B core antibody, and Hep C testing-- all negative :: V/Z (11/08 - 11/14) :: Stopped PO Augmentin 875 BID (11/14-11/22/24) :: 11/21 New wound infection suspected Plan: - repeat wound Cx and obtain blood Cx x 2 - Wound care consulted - stop Augmentin, start Zosyn - Holding home PO iron iso possible infection - alerted Derm about suspicion for infection, wound care recs requested - Previous Dermatology recs: - Continue hibiclens wash BID, topical clindamycin BID, and wound care - Follow up outpatient with Dr. Valentino or Apolinar to start immunotherapy #Hypotension :: appears long standing on chart review, pt confirmed hx of low BPs :: normal TSH - CTM #Hypercalcemia - resolved ::presented with CoCa 12.5; iCa 1.69; 24 hr urine Ca 384 (elevated) ::PTH <6.3 ::PTHrP elevated ::25-OH vit D 79; 1.25-OH vit D 35.9 :: SPEP with M protein spike: monoclonal free lambda light chains in beta region :: UPEP wnl :: Elevated IgA; IgG and IgM wnl :: TSH wnl :: S/p pamidronate 90 mg IV 11/12/24 :: Heme signed off :: AL stain negative - Endocrine signed off with final recs: - if hypercalcemia reoccurs, can give 90 mg iv pamidronate 1-2 weeks after initial admin. (November 19 - ). #Nicotine Use - Continue home Chantix #Subacute PARUL - improving ::Cr ~1.6 on last admission, Cr continues to improve ::On prior admission was evaluated for this with normal UA, CT with no hydronephrosis, felt to be 2/2 NSAID use for HS ::A1c and UA normal on admission at [facility] ::FeUrea 48.2% (>35=> suggestive of intrinsic renal disease) - Avoid nephrotoxic drug, hypotension, sepsis, dehydration - Continuing to encourage oral hydration and monitor serum calcium #Bladder Calculi ::Incidentally noted on CT Pelvis from OSH, asymptomatic, max diam is 1.5 cm #Normocytic Anemia #Folate Deficiency :: Hgb 10.4 at [facility], Hgb 8.8 on admission, Hgb 9.0 today :: 10/10/24: decr TIBC 218 and Fe 24; normal ferritin 259 :: B9 decreased at 4.6, B12 328 (wnl) :: Holding home PO iron :: pt consented for blood transfusion on 11/13/24 - continue folate supplementation #Thrombocytosis :: reactive +/- iron deficiency component - CTM F: none E: Keep mg >2, phos >3 and K >4 N: Regular A: PIV DVT ppx: lovenox GI ppx: None Bowel care: Sennosides, Miralax, lactulose Code Status: Full Code (confirmed on admission) Isa Turner MD, PGY-1 Cosigned by Gilbert Sylvester MD at 11/23/2024 10:59 AM EST Associated attestation - Gilbert Sylvester MD - 11/23/2024 10:59 AM EST I saw and evaluated the patient. I personally obtained the gomez and critical portions of the history and physical exam or was physically present for gomez and critical portions performed by the resident/fellow. I reviewed the resident/fellow's documentation and discussed the patient with the resident/fellow. I agree with the resident/fellow's medical decision making as documented in the note. Kevan La is a 49 y.o. male on day 11 of admission presenting with infected gluteal wound, SCC, hypercalcemia, and hypotension. Subjective Pt reports a lot of pain around 3 AM. No BM since 11/18/24. Denies CP, SOB, N/V, diarrhea, fevers, chills. Objective 24 Hour Vitals Temp: [36.5 C (97.7 F)-36.6 C (97.9 F)] 36.5 C (97.7 F) Heart Rate: [78-88] 78 Resp: [16] 16 BP: (92-104)/(55-78) 104/62 Temp (24hrs), Av.6 C (97.8 F), Min:36.5 C (97.7 F), Max:36.6 C (97.9 F) 24 hour Intake/Output Intake/Output Summary (Last 24 hours) at 11/21/2024 1523 Last data filed at 11/21/2024 1158 Gross per 24 hour Intake 913.33 ml Output 1550 ml Net -636.67 ml Exam: General: Resting in bed on his rigth side, no acute distress. HEENT: Normocephalic and atraumatic. EOMI, sclera non-icteric Cardiovascular: RRR, no r/m/g Pulmonary: Lungs clear to auscultation bilaterally. No wheezes/ rhonchi/ rales GI: firm, but not rigid, non-tender : No Wallace cath Extremities: No LE edema. Skin: Left buttock wound covered with dressing. L thigh lesion is with surrounding erythema and some serous drainage. Neurologic: CN II-XII grossly intact. Moving extremities spontaneously Psych: Appears depressed. Labs CBC Results from last 72 hours Lab Units 11/21/24 0534 11/20/24 0531 11/19/24 0608 WBC AUTO x10*3/uL 12.4* 11.4* 12.1* HEMOGLOBIN g/dL 8.6* 8.6* 9.0* HEMATOCRIT % 26.9* 28.4* 29.6* PLATELETS AUTO x10*3/uL 745* 771* 758* BMP Results from last 72 hours Lab Units 11/21/24 0534 11/20/24 0532 11/19/24 0608 SODIUM mmol/L 137 134* 134* POTASSIUM mmol/L 4.0 4.2 3.9 CHLORIDE mmol/L 102 100 99 BUN mg/dL 14 15 15 CREATININE mg/dL 1.29 1.25 1.15 MAGNESIUM mg/dL 1.86 2.13 2.06 PHOSPHORUS mg/dL 2.7 2.8 2.8 Medications Scheduled Medications acetaminophen, 975 mg, oral, TID amoxicillin-pot clavulanate, 1 tablet, oral, q12h BERNADETTE chlorhexidine, , Topical, BID clindamycin, , Topical, BID enoxaparin, 40 mg, subcutaneous, q24h fentaNYL, 1 patch, transdermal, q72h folic acid, 1 mg, oral, Daily magnesium sulfate, 2 g, intravenous, Once melatonin, 3 mg, oral, Nightly multivitamin with minerals, 1 tablet, oral, Daily polyethylene glycol, 17 g, oral, BID sennosides-docusate sodium, 2 tablet, oral, BID varenicline tartrate, 1 mg, oral, BID Continuous Medications PRN Medications PRN medications: bisacodyl, HYDROmorphone, naloxone, ondansetron, oxyCODONE, oxyCODONE, prochlorperazine Assessment/Plan Kevan La is a 49 y.o. male with refractory hidradenitis supprativa (HS) not responding to povorcitinib (RCT candidate), apremilast, isotretinoin, adalimumab, infliximab, moxifloxacin/metronidazole, minocyclin, clindamycin, rifampin, augmentin and doxycycline, transferred from [facility] regarding 14cm gluteal fluid collection. He was recently admitted for the same L. gluteal abscess which was 9.2 x 5.7 x 13.2cm in size s/p I&D. Pending speciation of culture he was discharged with a course of Unasyn per ID however returns due to gluteal pain and questionable sepsis, CT Pelvis at OSH with large ulcerative wound at the left buttock with an adjacent 14.9 cm enhancing mass involving the left gluteal muscles and overlying subcutaneous tissue, larger than CT in 08/2024, which may represent failure of current antibiotic regimen. ACS surgery engaged, recommended no surgical interventions. Endocrinology engaged for hypercalcemia. Heme also following. S/p Bx of peripheral nodule and tissue Cx on 11/12/24 c/f SCC (primary vs metastatic lesion). Additional biopsies taken by dermatology 11/15 showed invasive SCC. Tumor board meeting 11/18/24 recommended initial management by Med Onc. No immediate surgical interventions recommended. Pain is not optimally controlled. 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 [facility] [place] capabilities of eventual SNF - discussed that seeking care with a local oncologist would be reasonable as well - If needed by SNF: tentative treatment would be an immunotherapy infusion approximately 2 hrs of chair time once every 21 days #Cancer and wound related pain :: pain not optimally controlled :: current regimen: 50 mcg fentanyl patch q72h Continue 10mg oxycodone q4h PRN for severe pain Continue 5mg oxycodone q4h PRN for moderate pain Continue 1.0 mg IV hydromorphone q2h PRN for BT pain #Gluteal wound s/p abscess I&D 10/13 #Refractory hidradenitis suppurativa #Deep tissue SSTI #Leukocytosis ::CT Pelvis 11/08/24: Large ulcerative wound at the left buttock with an adjacent 14.9 cm enhancing mass involving the left gluteal muscles and overlying subcutaneous tissue, larger than CT in 08/2024 :: Last dose of Povorcitanib 10/10 :: Blood Cx from 11/10 NGTD :: Tissue Cx from 11/12 growing rare proteus mirabilis, Augmentin susceptible :: V/Z (11/08 - 11/14) :: PO Augmentin 875 BID x 3 weeks (11/14-present) :: Quant TB, HIV, Hep B surface antigen/antibody, Hep B core antibody, and Hep C testing-- all negative Plan: - Continue Topical Clindamycin BID, Hibiclens BID - Holding home PO iron iso possible infection - Dermatology recs appreciated: - Continue hibiclens wash BID, topical clindamycin BID, and wound care - Follow up outpatient with Dr. Valentino or Apolinar to start immunotherapy - Ok to discharge once pain is controlled #Hypotension :: appears long standing on chart review, pt confirmed hx of low BPs :: normal TSH - CTM #Hypercalcemia - resolved ::presented with CoCa 12.5; iCa 1.69; 24 hr urine Ca 384 (elevated) ::PTH <6.3 ::PTHrP elevated ::25-OH vit D 79; 1.25-OH vit D 35.9 :: SPEP with M protein spike: monoclonal free lambda light chains in beta region :: UPEP wnl :: Elevated IgA; IgG and IgM wnl :: TSH wnl :: S/p pamidronate 90 mg IV 11/12/24 :: Heme signed off :: AL stain negative - Endocrine signed off with final recs: - if hypercalcemia reoccurs, can give 90 mg iv pamidronate 1-2 weeks after initial admin. (November 19 - ). #Nicotine Use - Continue home Chantix #Subacute PARUL - improving ::Cr ~1.6 on last admission, Cr continues to improve ::On prior admission was evaluated for this with normal UA, CT with no hydronephrosis, felt to be 2/2 NSAID use for HS ::A1c and UA normal on admission at [facility] ::FeUrea 48.2% (>35=> suggestive of intrinsic renal disease) - Avoid nephrotoxic drug, hypotension, sepsis, dehydration - Continuing to encourage oral hydration and monitor serum calcium #Bladder Calculi ::Incidentally noted on CT Pelvis from OSH, asymptomatic, max diam is 1.5 cm #Normocytic Anemia #Folate Deficiency :: Hgb 10.4 at [facility], Hgb 8.8 on admission, Hgb 9.0 today :: 10/10/24: decr TIBC 218 and Fe 24; normal ferritin 259 :: B9 decreased at 4.6, B12 328 (wnl) :: Holding home PO iron :: pt consented for blood transfusion on 11/13/24 - no evidence of bleeding, pt is HD stable (BPs are soft at baseline per pt) - continue folate supplementation #Thrombocytosis :: reactive +/- iron deficiency component +/- hemoconcentration - CTM F: none E: Keep mg >2, phos >3 and K >4 N: Regular A: PIV DVT ppx: lovenox GI ppx: None Bowel care: Sennosides, Miralax, lactulose Code Status: Full Code (confirmed on admission) Isa Turner MD, PGY-1 Cosigned by Gilbert Sylvester MD at 11/22/2024 10:33 AM EST Associated attestation - Gilbert Sylvester MD - 11/22/2024 10:33 AM EST I saw and evaluated the patient. I personally obtained the gomez and critical portions of the history and physical exam or was physically present for gomez and critical portions performed by the resident/fellow. I reviewed the resident/fellow's documentation and discussed the patient with the resident/fellow. I agree with the resident/fellow's medical decision making as documented in the note. SUPPORTIVE AND PALLIATIVE ONCOLOGY INPATIENT FOLLOW-UP SERVICE DATE: 11/21/24 Updates and Recommendations (11/21/24): Start gabapentin 300mg PO once daily HS Increase oxycodone IR 10mg PO q3h PRN for moderate pain Increase oxycodone IR 15mg PO q3h PRN for severe pain Change scheduled lactulose 20g PO BID ASSESSMENT/PLAN: Kevan La is a 49 y.o. male with peripheral nodule and tissue SCC (primary vs metastatic lesion). PMHx significant for refractory hidradenitis supprativa (HS). Admitted 11/10/2024 for further evaluation and management of 14cm gluteal fluid collection (previously s/p I&D September 2024 at ). Supportive and Palliative Oncology is consulted for pain management. Neoplasm Related Pain L gluteal pain 2/2 known malignancy. Pain type: Somatic, possibly neuropathic Pain control: Sub-optimally controlled Home regimen: oxycodone IR 5mg q6h PRN Intolerances: None Risk factors: None Renal and hepatic function WNL. Continue scheduled acetaminophen 975mg PO q8h Continue scheduled fentanyl 50mcg/h TD patch [id number] 11/20/24 Start gabapentin 300mg PO once daily HS Increase oxycodone IR 10mg PO q3h PRN for moderate pain Increase oxycodone IR 15mg PO q3h PRN for severe pain Continue hydromorphone 1mg IV q2h PRN for breakthrough pain Nausea At risk for nausea with vomiting related to opioids. Home regimen: None EKG reviewed from 11/10/24, QTc 416. No more recent EKG uploaded to EMR. Currently denies n/v. Continue ondansetron 8mg IV q8h PRN for n/v, first line Continue prochlorperazine 10mg IV q6h PRN for n/v, second line Constipation At risk for constipation related to medication side effects (including opioids), currently constipated. Usual bowel pattern: Every day Home regimen: None LBM: 11/17/24 per pt, pt denies having recent BM despite one being documented on 11/21/24. Continue scheduled Miralax 17g PO BID Continue scheduled Leda-Colace 2 tab PO BID Change scheduled lactulose 20g PO BID One time PRN dose of bisacodyl 10mg IN ordered per primary Goal to have BM without straining q48-72h, adjust regimen as needed Encourage mobility as tolerated, PT/OT following Disposition: Please start the process of having prior authorization with meds to beds deliver medications to patient prior to discharge via [facility] pharmacy. Prescriptions will need to be sent 48-72 hours prior to discharge so that a prior authorization can be completed. Discharge date: unknown pending acute issues Patient does not qualify for an appointment with Outpatient Supportive Oncology- needs to establish with Oncology outpatient SIGNATURE: Jami Lance APRN-SENIOR DATABASE ENGINEER PAGER/CONTACT: Contact information: Supportive and Palliative Oncology Monday-Monday 8 AM-5 PM [email or web address] Secure chat or pager [phone]. After hours and weekends: pager [phone] == SUBJECTIVE: Interval Events: Pt's pain sub-optimally controlled on current regimen. Discussed with pt and he is agreeable to above recommendations. Plans to re-evaluate pt tomorrow for possible eligibility for fentanyl patch increase. Dropped off Supportive Oncology information packet, [facility] packet, and packet regarding assistance with disability/financial resources per sales and marketing coordinator. Pain Assessment: Location: Left gluteal abscess Duration: Constant Characteristics: Ratin/10 Descriptors: Throbbing, sharp, and burning Aggravating: Movement, "worse at night" Relieving: Analgesics, positioning, and modifying activity Interference with Function: Somewhat Opioid Requirements Past 24h opioid requirements: (11/20-11/21, 9311-3050) fentanyl 50mcg/h TD patch x 1 = 100 OME hydromorphone 1mg IV x 2 = 2mg = 25 OME oxycodone IR 10mg x 3 = 30mg = 37.5 OME Total 24h OME use: 162.5 OME Symptom Assessment: Nausea: none Constipation: somewhat Information obtained from: chart review, interview of patient, and discussion with primary team ____ OBJECTIVE: Lab Results Component Value Date WBC 12.4 (H) 11/21/2024 HGB 8.6 (L) 11/21/2024 HCT 26.9 (L) 11/21/2024 MCV 85 11/21/2024 PLT 745 (H) 11/21/2024 Lab Results Component Value Date GLUCOSE 96 11/21/2024 CALCIUM 9.3 11/21/2024 NA 137 11/21/2024 K 4.0 11/21/2024 CO2 23 11/21/2024 CL 102 11/21/2024 BUN 14 11/21/2024 CREATININE 1.29 11/21/2024 Lab Results Component Value Date ALT 20 11/17/2024 AST 13 11/17/2024 ALKPHOS 83 11/17/2024 BILITOT 0.3 11/17/2024 Estimated Creatinine Clearance: 89.7 mL/min (by C-G formula based on SCr of 1.29 mg/dL). Scheduled medications acetaminophen, 975 mg, oral, TID amoxicillin-pot clavulanate, 1 tablet, oral, q12h BERNADETTE chlorhexidine, , Topical, BID clindamycin, , Topical, BID enoxaparin, 40 mg, subcutaneous, q24h fentaNYL, 1 patch, transdermal, q72h folic acid, 1 mg, oral, Daily lactulose, 20 g, oral, Daily magnesium sulfate, 2 g, intravenous, Once melatonin, 3 mg, oral, Nightly multivitamin with minerals, 1 tablet, oral, Daily polyethylene glycol, 17 g, oral, BID sennosides-docusate sodium, 2 tablet, oral, BID varenicline tartrate, 1 mg, oral, BID Continuous medications PRN medications bisacodyl, 10 mg, Once PRN HYDROmorphone, 1 mg, q2h PRN naloxone, 0.2 mg, PRN ondansetron, 8 mg, q8h PRN oxyCODONE, 10 mg, q3h PRN oxyCODONE, 5 mg, q3h PRN prochlorperazine, 10 mg, q6h PRN PHYSICAL EXAMINATION: Vital Signs: Vital signs reviewed Visit Vitals BP 97/78 Pulse 79 Temp 36.5 C (97.7 F) Resp 18 0-10 (Numeric) Pain Score: 7 Physical Exam Vitals reviewed. Constitutional: Comments: Alert, awake, thin gentleman laying on his R side in bed. No signs of acute distress. Pleasant, cooperative, and participating in interview. HENT: Head: Comments: Normocephalic, atraumatic. Eyes: Comments: Sclera clear, EOM intact. Pulmonary: Comments: Symmetrical chest rise. Regular rate and depth of respirations. Room air. Abdominal: Comments: Abdomen non distended, non tender. Musculoskeletal: Comments: Generalized muscle weakness and atrophy. SHEPARD x4. No visible extremity edema. Skin: Comments: No lesions, rash, or abrasions present on visible skin. Skin color appropriate for ethnicity. Neurological: Comments: A&Ox4, follows commands, no apparent sensory deficits. Psychiatric: Comments: Mood and behavior appropriate. PALLIATIVE CARE ENCOUNTER: Supportive and Palliative Oncology encounter: Spoke with patient at bedside. Emotional support provided. Coordination of care: medication and symptom re-evaluation Medical Decision Making/Goals of Care/Advance Care Planning: (Per Emile Segovia, SENIOR DATABASE ENGINEER's, note on 11/16/24) Patient's current clinical condition, including diagnosis, prognosis, and management plan, and goals of care were discussed. Life limiting disease: SCC of UNK primary Family: Supportive though live in [place] Performance status: Moderate limitations due to pain Joys/meaning/strength: Family and [place] Understanding of health: 11/16: Demonstrates good prognostic understanding of disease process, understands plan will be determined once pathology results are in. (11/20/24) Spent time with active listening and validation of feelings. Pt very hesitant about opioids. Denies addiction history But I don't want to start now. Discussed he needs opioids at this time for pain control and QOL. Educated about difference of long acting fentanyl patch to short acting oxycodone and goal for better overall control and reduce PRN needs. Will provide better overnight control as well. Pt agreed to try this. Has goal of working with PT soon to start building strength back up. Information:Wants full disclosure Goals: symptom control and cancer directed therapy Worries and fears now and future: ongoing symptoms Code status discussion: Discussed previously and Full code Advance Directives Existence of Advance Directives: No - not interested Decision maker: Surrogate decision maker is Omkar robertson ([phone]) == Signature and billing: Medical complexity was high level due to due to complexity of problems, extensive data review, and high risk of management/treatment. I spent 50 minutes in the care of this patient which included chart review, interviewing patient/family, discussion with primary team, coordination of care, and documentation. Data: Diagnostic tests and information reviewed for today's visit: Conversation with primary team, Most recent labs and imaging results, Most recent EKG, Medications Some elements copied from Emile Segovia CNP's, note on 11/20/24, the elements have been updated and all reflect current decision making from today, 11/21/24. Plan of Care discussed with: Primary team, pt Thank you for asking Supportive and Palliative Oncology to assist with care of this patient. Recommendations will be communicated back to the consulting service by way of shared electronic medical record/secure chat/email or [id number]. We will continue to follow. Please contact us for additional questions or concerns. SIGNATURE: TRAVIS Huizar PAGER/CONTACT: Contact information: Supportive and Palliative Oncology Monday-Monday 8 AM-5 PM, [email or web address] Secure chat or pager [phone]. After hours and weekends: pager [phone] Transitional Care Coordination Progress Note: Patient discussed during interdisciplinary rounds. Team members present: MIGUEL NIELSEN Plan per Medical/Surgical team: Gluteal Abscess Payor: [facility] Discharge disposition: [facility] Potential Barriers: medical ADOD: 3-4 days Per MD, continuing to manage pain. Pending plans from oncology. Updated notes sent to facility. Will continue to follow for discharge planning needs. Julisa GARZA, salt maker Coordinator (TCC) [phone] Occupational Therapy OT Treatment Patient Name: Kevan La Department: [facility] 3 Room: [address] [place] [address] Today's Date: 11/21/2024 Time Calculation Start Time: 950 Stop Time: 1030 Time Calculation (min): 40 min Assessment: Barriers to Discharge Home: Caregiver assistance, Physical needs End of Session Communication: Bedside nurse End of Session Patient Position: Bed, 3 rail up, Alarm off, not on at start of session OT Assessment Results: Decreased ADL status, Decreased endurance, Decreased functional mobility, Decreased IADLs Plan: Treatment Interventions: ADL retraining, Functional transfer training, UE strengthening/ROM, Endurance training, Patient/family training, Compensatory technique education OT Frequency: 3 times per week OT Discharge Recommendations: Moderate intensity level of continued care OT Recommended Transfer Status: Maximum assist, Assist of 1 OT - OK to Discharge: Yes Subjective Previous Visit Info: OT Last Visit OT Received On: 11/21/24 General: General Reason for Referral: gluteal fluid collection Past Medical History Relevant to Rehab: refractory hidradenitis supprativa, (L) gluteal wound s/p recent I&D OT Missed Visit: Yes Missed Visit Reason: Patient refused (Pt reports not feeling well/up for therapy. OT offers psychosocial options and pt reports not feeling well l "in the head" either. Pt politely declines to expand upon this -- OT expresses support if pt ever wants to discuss. Pt pleasant and aprpeciative.) Prior to Session Communication: Bedside nurse Patient Position Received: Bed, 3 rail up, Alarm off, not on at start of session General Comment: Pt supine in bed upon arrival, willing to participate in OT - requesting assist with hair hygiene today. Pain: Pain Assessment Pain Assessment: 0-10 0-10 (Numeric) Pain Score: 5 - Moderate pain Pain Location: Buttocks Pain Interventions: Relaxation technique, Therapeutic presence, Repositioned Objective Cognition: Cognition Overall Cognitive Status: Within Functional Limits Arousal/Alertness: Appropriate responses to stimuli Orientation Level: Oriented X4 Coordination: Activities of Daily Living: Grooming Grooming Comments: OT assists MAX A with hair wash/dry/braid while pt supine and pt head supported over HOB for proper positioning when rinsing hair into banister. Pt highly appreciative and pleasant this date. UE Dressing UE Dressing Comments: MIN A to don/doff hosp gown Bed Mobility/Transfers: Bed Mobility 1 Bed Mobility 1: Scooting Level of Assistance 1: Contact guard Bed Mobility Comments 1: pt use of BLEs and bedrails Therapy/Activity: Therapeutic Activity Therapeutic Activity 1: OT plays relaxing music during haircare to facilitate engagement in leisure occupations and increase psychoscial health - pt highly appreciative. Outcome Measures: [facility] Daily Activity Putting on and taking off regular lower body clothing: A lot Bathing (including washing, rinsing, drying): A lot Putting on and taking off regular upper body clothing: A little Toileting, which includes using toilet, bedpan or urinal: A little Taking care of personal grooming such as brushing teeth: A little Eating Meals: None Daily Activity - Total Score: 17 OT Adult Other Outcome Measures 5x Sit to Stand: 0 (unable to complete this date) Education Documentation Body Mechanics, taught by Janny Andres OT at 11/21/2024 11:29 AM. Learner: Patient Readiness: Acceptance Method: Explanation Response: Verbalizes Understanding Precautions, taught by Janny Andres OT at 11/21/2024 11:29 AM. Learner: Patient Readiness: Acceptance Method: Explanation Response: Verbalizes Understanding ADL Training, taught by Janny Andres OT at 11/21/2024 11:29 AM. Learner: Patient Readiness: Acceptance Method: Explanation Response: Verbalizes Understanding Education Comments No comments found. Goals: Encounter Problems Encounter Problems (Active) ADLs Patient with complete upper body dressing with independent level of assistance donning and doffing all UE clothes with no adaptive equipment while edge of bed. (Progressing) Start: 11/11/24 Expected End: 12/02/24 Patient with complete lower body dressing with stand by assist level of assistance donning and doffing all LE clothes with PRN adaptive equipment while edge of bed. (Progressing) Start: 11/11/24 Expected End: 12/02/24 Patient will complete daily grooming tasks brushing teeth and washing face/hair with independent level of assistance while edge of bed and if progressing, standing at sink. (Progressing) Start: 11/11/24 Expected End: 12/02/24 Patient will perform UB independent post set up and LB bathing with min assist and long-handled sponge. (Progressing) Start: 11/15/24 Expected End: 12/02/24 MOBILITY Patient will perform Functional mobility min Household distances/Community Distances with minimal assist level of assistance and least restrictive device in order to improve safety and functional mobility. (Progressing) Start: 11/11/24 Expected End: 12/02/24 TRANSFERS Patient will perform bed mobility minimal assist level of assistance and bed rails in order to improve safety and independence with mobility (Progressing) Start: 11/11/24 Expected End: 12/02/24 Patient will complete sit to stand transfer with minimal assist level of assistance and least restrictive device in order to improve safety and prepare for out of bed mobility. (Progressing) Start: 11/11/24 Expected End: 12/02/24 Janny Andres (OTR/L, OTD) Inpatient Occupational Therapist Rehab Office: [phone] Spiritual Care Visit Spiritual Care Request Spiritual Care Annotation Annotation: Stallion Manager had a follow-up visit with the patient. Stallion Manager delivered prayer book resources as promised and shared with the patient what was brought. 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 Patient would like information about disability/un-employment/supporti ve services. Patient is currently un-employed. 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 His family lives in [place]. Patient does not have much support around him in [place]. Stallion Manager placed a [facility] cancer support referral for the patient upon his request. Stallion Manager will continue to follow and provide support. Please reach out with any needs/concerns. Rev. Mack Schmitz, Supportive Oncology Stallion Manager Physical Therapy Therapy Communication Note Patient Name: Kevan La Department: [facility] 3 Room: [address] [place], [place] [id number] Today's Date: 11/20/2024 Discipline: Physical Therapy PT Missed Visit: Yes Missed Visit Reason: Missed Visit Reason: Patient refused (Pt stated he has been nauseaus today and not willing to get up.) Missed Time: Attempt Comment: Cosigned by Doris Guzman, PT at 11/20/2024 9:44 PM EST Occupational Therapy Therapy Communication Note Patient Name: Kevan La Department: [facility] 3 Room: [id number] Today's Date: 11/20/2024 Discipline: Occupational Therapy OT Missed Visit: Yes Missed Visit Reason: Patient refused (Pt reports not feeling well/up for therapy. OT offers psychosocial options and pt reports not feeling well l "in the head" either. Pt politely declines to expand upon this -- OT expresses support if pt ever wants to discuss. Pt pleasant and aprpeciative.) Missed Time: Attempt Janny Andres (OTR/L, OTD) Inpatient Occupational Therapist Rehab Office: [phone] Kevan La is a 49 y.o. male on day 10 of admission presenting with No Principal Problem: There is no principal problem currently on the Problem List. Please update the Problem List and refresh.. SUPPORTIVE AND PALLIATIVE ONCOLOGY INPATIENT FOLLOW-UP SERVICE DATE: 11/20/24 Updates 11/20/24, recommended changes are bolded below: pain suboptimally-controlled, starting long acting regimen ASSESSMENT/PLAN: Kevan La is a 49 y.o. male with Bx of peripheral nodule and tissue Cx on 11/12/24 c/f SCC (primary vs metastatic lesion). PMH significant for refractory hidradenitis supprativa (HS). Admitted 11/10/2024 for further evaluation and management of 14cm gluteal fluid collection. Supportive and Palliative Oncology is consulted for pain management. Symptom Management Plan: Recommended changes are bolded Pain: Cancer related pain: gluteal abscess , somatic, well-controlled Home regimen: Oxycodone 5mg Intolerances/previously tried: N/A Risk factors: none Renal function WNL and Hepatic function WNL START 50 mcg fentanyl patch q72h Continue 10mg oxycodone q4h PRN for severe pain Continue 5mg oxycodone q4h PRN for moderate pain Continue 1.0 mg IV hydromorphone q2h PRN for BT pain Nausea: At risk for nausea with vomiting related to opioids Home regimen: none QTc: within normal limits Sub- optimally controlled INCREASE to 8 mg ondansetron q8h PRN START 10mg prochlorperazine q6h PRN Constipation At risk for constipation related to medication side effects (including opioids), currently not constipated Usual bowel pattern: every day Home regimen: none LBM 4 days Continue miralax daily Continue 2 senna-s BID Goal to have BM without straining q48-72h, adjust regimen as needed Disposition: Please start the process of having prior authorization with meds to beds deliver medications to patient prior to discharge via [facility] pharmacy. Prescriptions will need to be sent 48-72 hours prior to discharge so that a prior authorization can be completed. Discharge date: unknown pending acute issues Patient does not qualify for an appointment with Outpatient Supportive Oncology- needs to establish with Oncology outpatient SIGNATURE: Lynette Segovia APRN-NEHAL PAGER/CONTACT: Contact information: Supportive and Palliative Oncology Monday-Monday 8 AM-5 PM [email or web address] Secure chat or pager [phone]. After hours and weekends: pager [phone] SUBJECTIVE: Interval Events: Pt continues to have high levels of pain- very hesitant to increase regimen stating "I don't want to get addicted." Denies history of addiction. States pain is worse overnight than during the day. Ultimately agreed to start fentanyl patch for better control. Pain Assessment: Location: Left gluteal abscess Duration: Constant Characteristics: Rating: Severe Descriptors: throbbing, sharp, and burning Aggravating: movement Relieving: Analgesics, Positioning, and Modifying activity Intolerances:Kevan La has No Known Allergies. Interference with Function: Somewhat Barriers to Pain Management: Fear of addiction Opioid Requirements Past 24 h opioid requirements (11/19/24 at 0800 to 11/20/24 at 0800): Hydromorphone 1.0 mg IV x 5 doses = 5.0 mg = 80 OME Oxycodone IR 10 mg PO x 7 doses = 70 mg = 105 OME Total 24h OME use: 205 Symptom Assessment: Nausea very much Vomiting somewhat Constipation somewhat Difficulty Sleeping very much Information obtained from: chart review, interview of patient, discussion with RN, and discussion with primary team ____ OBJECTIVE: Lab Results Component Value Date WBC 11.4 (H) 11/20/2024 HGB 8.6 (L) 11/20/2024 HCT 28.4 (L) 11/20/2024 MCV 89 11/20/2024 PLT 771 (H) 11/20/2024 Lab Results Component Value Date GLUCOSE 104 (H) 11/20/2024 CALCIUM 9.3 11/20/2024 NA 134 (L) 11/20/2024 K 4.2 11/20/2024 CO2 23 11/20/2024 CL 100 11/20/2024 BUN 15 11/20/2024 CREATININE 1.25 11/20/2024 Lab Results Component Value Date ALT 20 11/17/2024 AST 13 11/17/2024 ALKPHOS 83 11/17/2024 BILITOT 0.3 11/17/2024 Estimated Creatinine Clearance: 92.6 mL/min (by C-G formula based on SCr of 1.25 mg/dL). Scheduled medications acetaminophen, 975 mg, oral, TID amoxicillin-pot clavulanate, 1 tablet, oral, q12h BERNADETTE bisacodyl, 10 mg, rectal, Once chlorhexidine, , Topical, BID clindamycin, , Topical, BID enoxaparin, 40 mg, subcutaneous, q24h folic acid, 1 mg, oral, Daily melatonin, 3 mg, oral, Nightly multivitamin with minerals, 1 tablet, oral, Daily polyethylene glycol, 17 g, oral, BID sennosides-docusate sodium, 2 tablet, oral, BID varenicline tartrate, 1 mg, oral, BID Continuous medications lactated Ringer's, 100 mL/hr, Last Rate: 100 mL/hr (11/20/24 0921) PRN medications HYDROmorphone, 1 mg, q2h PRN naloxone, 0.2 mg, PRN ondansetron, 4 mg, q6h PRN oxyCODONE, 10 mg, q3h PRN oxyCODONE, 5 mg, q3h PRN } PHYSICAL EXAMINATION: Vital Signs: Vital signs reviewed Visit Vitals BP 97/53 Pulse 84 Temp 36.5 C (97.7 F) Resp 18 0-10 (Numeric) Pain Score: 8 Physical Exam Well-developed M Laying in bed, NAD A&O x 3, pleasant and cooperative with interview & exam Breathing comfortably on RA Abd soft, NTND, BS Gluteal wound is draining serosanguinous fluid No edema in ext PALLIATIVE CARE ENCOUNTER: Spoke with patient at bedside Emotional Support provided Care Coordination: medication changes Medical Decision Making/Goals of Care/Advance Care Planning: Patient's current clinical condition, including diagnosis, prognosis, and management plan, and goals of care were discussed. Life limiting disease: SCC of UNK primary Family: Supportive though live in [place] Performance status: Moderate limitations due to pain Joys/meaning/strength: Family and [place] Understanding of health: 11/16: Demonstrates good prognostic understanding of disease process, understands plan will be determined once pathology results are in. 11/20/24: Spent time with active listening and validation of feelings. Pt very hesitant about opioids. Denies addiction history But I don't want to start now. Discussed he needs opioids at this time for pain control and QOL. Educated about difference of long acting fentanyl patch to short acting oxycodone and goal for better overall control and reduce PRN needs. Will provide better overnight control as well. Pt agreed to try this. Has goal of working with PT soon to start building strength back up. Information:Wants full disclosure Goals: symptom control and cancer directed therapy Worries and fears now and future: ongoing symptoms Code status discussion: Discussed previously and Full code Advance Directives Existence of Advance Directives:No - not interested Decision maker: Surrogate decision maker is brother Omkar Supportive Interventions: Interventions: SPO Spiritual Care: referral placed, Integrative Oncology referral placed Signature and billing: Medical complexity was high level due to due to complexity of problems, extensive data review, and high risk of management/treatment. Data: Diagnostic tests and information reviewed for today's visit: Conversation with primary team, Most recent labs and imaging results, Medications Some elements copied from my note on 11/16/24, the elements have been updated and all reflect current decision making from today, 11/20/24 Plan of Care discussed with: Provider, RN, Patient Thank you for asking Supportive and Palliative Oncology to assist with care of this patient. Recommendations will be communicated back to the consulting service by way of shared electronic medical record/secure chat/email or [id number]. We will continue to follow Please contact us for additional questions or concerns. SIGNATURE: TRAVIS Rodas PAGER/CONTACT: Contact information: Supportive and Palliative Oncology Monday-Monday 8 AM-5 PM [email or web address] Secure chat or pager [phone]. After hours and weekends: pager [phone] Kevan La is a 49 y.o. male on day 10 of admission presenting with No Principal Problem: There is no principal problem currently on the Problem List. Please update the Problem List and refresh.. Subjective Pt reports a lot of pain overnight. This morning the pain is more bearable, but at 6-7/10 level. Last BM 3 days ago. Denies CP, SOB, N/V, diarrhea, fevers, chills. Objective 24 Hour Vitals Temp: [36.3 C (97.3 F)-36.5 C (97.7 F)] 36.5 C (97.7 F) Heart Rate: [81-84] 84 Resp: [16-18] 18 BP: (97-101)/(53-66) 97/53 Temp (24hrs), Av.3 C (97.4 F), Min:36.3 C (97.3 F), Max:36.5 C (97.7 F) 24 hour Intake/Output Intake/Output Summary (Last 24 hours) at 11/20/2024 1043 Last data filed at 11/20/2024 0635 Gross per 24 hour Intake 2078.34 ml Output 1200 ml Net 878.34 ml Exam: General: Resting in bed on his rigth side, no acute distress. HEENT: Normocephalic and atraumatic. EOMI, sclera non-icteric Cardiovascular: RRR, no r/m/g Pulmonary: Lungs clear to auscultation bilaterally. No wheezes/ rhonchi/ rales GI: firm, but not rigid, non-tender : No Wallace cath Extremities: No LE edema. Skin: Left buttock wound with wound pack on left buttock which appears clean and dry. L thigh lesion is with surrounding erythema and some serous drainage. Neurologic: CN II-XII grossly intact. Moving extremities spontaneously Psych: Pleasant. Appropriate mood and affect Labs CBC Results from last 72 hours Lab Units 11/20/24 0531 11/19/24 0608 11/18/24 0627 WBC AUTO x10*3/uL 11.4* 12.1* 12.3* HEMOGLOBIN g/dL 8.6* 9.0* 9.0* HEMATOCRIT % 28.4* 29.6* 29.9* PLATELETS AUTO x10*3/uL 771* 758* 785* BMP Results from last 72 hours Lab Units 11/20/24 0532 11/19/24 0608 11/18/24 0627 SODIUM mmol/L 134* 134* 135* POTASSIUM mmol/L 4.2 3.9 4.5 CHLORIDE mmol/L 100 99 99 BUN mg/dL 15 15 14 CREATININE mg/dL 1.25 1.15 1.22 MAGNESIUM mg/dL 2.13 2.06 2.19 PHOSPHORUS mg/dL 2.8 2.8 2.7 Medications Scheduled Medications acetaminophen, 975 mg, oral, TID amoxicillin-pot clavulanate, 1 tablet, oral, q12h BERNADETTE bisacodyl, 10 mg, rectal, Once chlorhexidine, , Topical, BID clindamycin, , Topical, BID enoxaparin, 40 mg, subcutaneous, q24h folic acid, 1 mg, oral, Daily melatonin, 3 mg, oral, Nightly multivitamin with minerals, 1 tablet, oral, Daily polyethylene glycol, 17 g, oral, BID sennosides-docusate sodium, 2 tablet, oral, BID varenicline tartrate, 1 mg, oral, BID Continuous Medications lactated Ringer's, 100 mL/hr, Last Rate: 100 mL/hr (11/20/24 0921) PRN Medications PRN medications: HYDROmorphone, naloxone, ondansetron, oxyCODONE, oxyCODONE Assessment/Plan Kevan La is a 49 y.o. male with refractory hidradenitis supprativa (HS) not responding to povorcitinib (RCT candidate), apremilast, isotretinoin, adalimumab, infliximab, moxifloxacin/metronidazole, minocyclin, clindamycin, rifampin, augmentin and doxycycline, transferred from [facility] regarding 14cm gluteal fluid collection. He was recently admitted for the same L. gluteal abscess which was 9.2 x 5.7 x 13.2cm in size s/p I&D. Pending speciation of culture he was discharged with a course of Unasyn per ID however returns due to gluteal pain and questionable sepsis, CT Pelvis at OSH with large ulcerative wound at the left buttock with an adjacent 14.9 cm enhancing mass involving the left gluteal muscles and overlying subcutaneous tissue, larger than CT in 08/2024, which may represent failure of current antibiotic regimen. ACS surgery engaged, recommended no surgical interventions. Endocrinology engaged for hypercalcemia. Heme also following. S/p Bx of peripheral nodule and tissue Cx on 11/12/24 c/f SCC (primary vs metastatic lesion). Additional biopsies taken by dermatology 11/15 showed invasive SCC. Tumor board meeting 11/18/24 recommended initial management by Med Onc. No immediate surgical interventions recommended. 11/20 Updates: - awaiting LC staining results on 11/15 derm bx - awaiting Supportive Onc recs on pain medications - will request lymph node bx w/ IR - Supportive onc OP appt can only be scheduled after pt attends OP Oncology appt. #L gluteal SCC iso chronic HS-associated wound and SCC of L thigh (likely a metastatic lesion) #Pelvic, inguinal, retroperitoneal Lymphoadenopathy :: SCC confirmed on bx 11/12/24 and 11/15/24 :: Tumor board 11/18/24 recommended management by Med Onc, no surgical intervention at this time :: CT C/A/P w/ contrast showed 0.4 mm lung nodule and lymphoadenopathy - Oncology consulted, appreciate recommendations: - inguinal lymph node bx recommended, will consult IR to request - [place] tentatively [place] [facility] [place] capabilities of eventual SNF - discussed that seeking care with a local oncologist would be reasonable as well - If needed by SNF: tentative treatment would be an immunotherapy infusion approximately 2 hrs of chair time once every 21 days #Cancer and wound related pain :: pain not optimally controlled :: current regimen: dilaudid 1g Q 2 hrs PRN breakthrough pain; continue oxycodone 10 mg Q 3 hrs severe pain and oxycodone 5 mg Q 3 hrs mod pain + scheduled tylenol 1g TID - awaiting supportive onc recs #Gluteal wound s/p abscess I&D 10/13 #Refractory hidradenitis suppurativa #Deep tissue SSTI #Leukocytosis ::CT Pelvis 11/08/24: Large ulcerative wound at the left buttock with an adjacent 14.9 cm enhancing mass involving the left gluteal muscles and overlying subcutaneous tissue, larger than CT in 08/2024 :: Last dose of Povorcitanib 10/10 :: Blood Cx from 11/10 NGTD :: Tissue Cx from 11/12 growing rare proteus mirabilis, Augmentin susceptible :: V/Z (11/08 - 11/14) :: PO Augmentin 875 BID x 3 weeks (11/14-present) :: Quant TB, HIV, Hep B surface antigen/antibody, Hep B core antibody, and Hep C testing-- all negative Plan: - Continue Topical Clindamycin BID, Hibiclens BID - Holding home PO iron iso possible infection - Dermatology recs appreciated: - Continue hibiclens wash BID, topical clindamycin BID, and wound care - Follow up outpatient with Dr. Valentino or Apolinar to start immunotherapy - Ok to discharge once pain is controlled #Hypotension :: appears long standing on chart review, pt confirmed hx of low BPs :: normal TSH - CTM #Hypercalcemia, mild ::presented with CoCa 12.5; iCa 1.69; 24 hr urine Ca 384 (elevated) :: PTH <6.3 ::PTHrP elevated ::25-OH vit D 79; 1.25-OH vit D 35.9 :: SPEP with M protein spike: monoclonal free lambda light chains in beta region :: UPEP wnl :: elevated IgA; IgG and IgM wnl ::TSH wnl :: s/p pamidronate 90 mg IV 11/12/24 - Endocrine signed off with final recs: - if hypercalcemia reoccurs, can give 90 mg iv pamidronate 1-2 weeks after initial admin. (November 19 - ). - Heme engaged, awaiting free light chains - requested AL stain for bx from 11/15/24 #Nicotine Use - Continue home Chantix #Subacute PARUL - improving ::Cr ~1.6 on last admission, Cr continues to improve ::On prior admission was evaluated for this with normal UA, CT with no hydronephrosis, felt to be 2/2 NSAID use for HS ::A1c and UA normal on admission at [facility] ::FeUrea 48.2% (>35=> suggestive of intrinsic renal disease) - Avoid nephrotoxic drug, hypotension, sepsis, dehydration - Continuing to encourage oral hydration and monitor serum calcium #Bladder Calculi ::Incidentally noted on CT Pelvis from OSH, asymptomatic, max diam is 1.5 cm #Normocytic Anemia #Folate Deficiency :: Hgb 10.4 at [facility], Hgb 8.8 on admission, Hgb 9.0 today :: 10/10/24: decr TIBC 218 and Fe 24; normal ferritin 259 :: B9 decreased at 4.6, B12 328 (wnl) :: Holding home PO iron :: pt consented for blood transfusion on 11/13/24 - no evidence of bleeding, pt is HD stable (BPs are soft at baseline per pt) - continue folate supplementation #Thrombocytosis :: reactive +/- iron deficiency component +/- hemoconcentration - CTM F: LR 100 ml/hr E: Keep mg >2, phos >3 and K >4 N: Regular A: PIV DVT ppx: lovenox GI ppx: None Bowel care: Sennosides, Miralax Code Status: Full Code (confirmed on admission) Isa Turner MD, PGY-1 Cosigned by Gilbert Sylvester MD at 11/20/2024 3:22 PM EST Associated attestation - Gilbert Sylvester MD - 11/20/2024 3:22 PM EST I saw and evaluated the patient. I personally obtained the gomez and critical portions of the history and physical exam or was physically present for gomez and critical portions performed by the resident/fellow. I reviewed the resident/fellow's documentation and discussed the patient with the resident/fellow. I agree with the resident/fellow's medical decision making as documented in the note. DERMATOLOGY CONSULT PROGRESS NOTE Name: Kevan La : 1975 Subjective Patient resting in bed, endorses 8-9/10 pain, worst in the more inferior nodule on the left thigh, when he does not have his pain medications. Still having significant breakthrough pain even with medications. We discussed the biopsy results and tumor board recommendations from 11/18. Per patient, he was unaware that any of the biopsies had shown SCC and this was the first he'd heard of it. Dermatology team did discuss the biopsy results of SCC and need for additional biopsy and possible systemic treatment on previous visits. Objective Vitals: 11/18/24 0543 11/18/24 1408 11/18/24202411/19/24 0551 BP: 95/54 101/65 96/62 99/55 Pulse: 82 79 78 79 Resp: 16 16 18 Temp: 36.6 C (97.9 F) 36.4 C (97.5 F) 36.4 C (97.5 F) 36.5 C (97.7 F) TempSrc: SpO2: 95% 95% 96% 95% Weight: Height: Exam Physical Exam GEN: no acute distress NEURO: moving all extremities EYES: conjunctiva and eyelids normal. No conjunctival injection or erosions appreciated ENT: - Lips: normal - Teeth/gums: normal - Oropharynx: normal tongue and mucosa NECK: normal and symmetric. CV: no varicosities, warmth or tenderness of extremities. EXTREMITIES: no distal digital clubbing, cyanosis, petechiae SKIN: A full body skin exam including scalp, face, eyes, ears, neck, trunk, bilateral upper & lower extremities, toenails and fingernails were examined with the following findings: On the bilateral buttocks and thigh are wound dressings covering the nodules and draining wounds Medications: Scheduled Meds: acetaminophen, 975 mg, oral, TID amoxicillin-pot clavulanate, 1 tablet, oral, q12h BERNADETTE chlorhexidine, , Topical, BID clindamycin, , Topical, BID enoxaparin, 40 mg, subcutaneous, q24h folic acid, 1 mg, oral, Daily melatonin, 3 mg, oral, Nightly multivitamin with minerals, 1 tablet, oral, Daily polyethylene glycol, 17 g, oral, BID sennosides-docusate sodium, 2 tablet, oral, BID varenicline tartrate, 1 mg, oral, BID Continuous Infusions: lactated Ringer's, 100 mL/hr, Last Rate: 100 mL/hr (11/19/24 1558) PRN Meds: PRN medications: HYDROmorphone, naloxone, ondansetron, oxyCODONE, oxyCODONE Results: Results for orders placed or performed during the hospital encounter of 11/10/24 (from the past 24 hours) CBC and Auto Differential Result Value Ref Range WBC 12.1 (H) 4.4 - 11.3 x10*3/uL nRBC 0.0 0.0 - 0.0 /100 WBCs RBC 3.40 (L) 4.50 - 5.90 x10*6/uL Hemoglobin 9.0 (L) 13.5 - 17.5 g/dL Hematocrit 29.6 (L) 41.0 - 52.0 % MCV 87 80 - 100 fL MCH 26.5 26.0 - 34.0 pg MCHC 30.4 (L) 32.0 - 36.0 g/dL RDW 16.4 (H) 11.5 - 14.5 % Platelets 758 (H) 150 - 450 x10*3/uL Neutrophils % 71.0 40.0 - 80.0 % Immature Granulocytes %, Automated 0.4 0.0 - 0.9 % Lymphocytes % 14.8 13.0 - 44.0 % Monocytes % 9.5 2.0 - 10.0 % Eosinophils % 3.6 0.0 - 6.0 % Basophils % 0.7 0.0 - 2.0 % Neutrophils Absolute 8.58 (H) 1.20 - 7.70 x10*3/uL Immature Granulocytes Absolute, Automated 0.05 0.00 - 0.70 x10*3/uL Lymphocytes Absolute 1.78 1.20 - 4.80 x10*3/uL Monocytes Absolute 1.14 (H) 0.10 - 1.00 x10*3/uL Eosinophils Absolute 0.43 0.00 - 0.70 x10*3/uL Basophils Absolute 0.08 0.00 - 0.10 x10*3/uL Renal Function Panel Result Value Ref Range Glucose 105 (H) 74 - 99 mg/dL Sodium 134 (L) 136 - 145 mmol/L Potassium 3.9 3.5 - 5.3 mmol/L Chloride 99 98 - 107 mmol/L Bicarbonate 25 21 - 32 mmol/L Anion Gap 14 10 - 20 mmol/L Urea Nitrogen 15 6 - 23 mg/dL Creatinine 1.15 0.50 - 1.30 mg/dL eGFR 77 >60 mL/min/1.73m*2 Calcium 9.5 8.6 - 10.6 mg/dL Phosphorus 2.8 2.5 - 4.9 mg/dL Albumin 3.4 3.4 - 5.0 g/dL Magnesium Result Value Ref Range Magnesium 2.06 1.60 - 2.40 mg/dL Assessment/Plan Kevan La is a 49 y.o. 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 Dermatology was consulted for HS. Differential diagnoses: HS with transformation to squamous cell carcinoma Impression: Patient has had longstanding HS of the buttocks for >20 years. He was originally admitted for an HS flare due to increased pain and drainage from his wounds on the left buttocks. Previously he has failed many previous treatments including augmentin, doxycycline, minocycline, isotretinoin, clindamycin/rifampin, Humira, Remicade, staph decolonization for mupirocin, moxifloxacin/metronidazole, apremilast, and recently a clinical trial medication. Patient was biopsied by our service on 11/12/24 due to concern for rapid disease progression to rule out malignancy. The biopsy of the left thigh nodule was consistent with squamous cell carcinoma, we favor this is a metastatic cutaneous lesion as there is no epidermal attachment seen in this biopsy. The biopsy from the border of the ulcerated wound showed nonspecific inflammation on 11/12, but we still had high suspicion this ulcerative wound represents the primary squamous cell carcinoma. Additional biopsies from this lesion were obtained on 11/15 and showed invasive squamous cell carcinoma; there was a lack of epidermal attachment, but it is favored that this is the primary lesion. Endocrinology team raises concern for PTHrP production from the malignancy. On review of the literature there are a few case reports of severe longstanding HS with subsequent development of SCC and hypercalcemia with PTHrP production from the tumor, albeit higher PTHrP levels than in the case of our patient. These patients had a poor prognosis and also had squamous cell carcinoma metastases identified on imaging to the lung and lymph nodes, thus we suggest further imaging work up for this patient such as CT chest. Additionally patient is experiencing extreme pain and should be seen by supportive onc/palliative medicine for pain recommendations. Patient was presented at cutaneous malignancy tumor board conference on Saturday 11/18 and it was recommended that he follow up outpatient with Dr. Valentino or Dr. Jiang to start immunotherapy before addressing the tumors surgically. Additionally, patient did not recall having his diagnosis of SCC discussed with him, so this was again discussed today along with the recommendations. 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 - Recommend CT Chest and other imaging work up as indicated for possible metastases - Continue pain management per supportive onc - Continue hibiclens wash BID, topical clindamycin BID, and wound care - Follow up outpatient with Dr. Valentino or Apolinar to start immunotherapy - Ok to discharge once pain is controlled The patient was discussed with attending physician Dr. Mesa. The assessment and plan was communicated to the care team. Thank you for the consultation and for the opportunity to contribute to the care of this patient. Torres Bardales MD PGY-2, Dermatology I reviewed the resident/fellow's documentation and discussed the patient with the resident/fellow. I agree with the resident/fellow's medical decision making as documented in the note. Lauri Mesa MD Spiritual Care Visit Spiritual Care Request Reason for Visit: Routine Visit: Introduction Continue Visiting: Yes Request Received From: Referral From: Patient Focus of Care: Visited With: Patient Refer to [facility] Manager: Spiritual Care Assessment Spiritual Assessment: Care Provided: Intended Effects: Build relationship of care and support, Establish rapport and connectedness, Aligning care plan with patient's values, Convey a calming presence, Promote sense of peace Interventions: Ask guided questions, Active listening, Discuss concerns Sense of Community and or Caodaism Affiliation: No mormon on file Stallion Manager Addressed Needs/Concerns and/or Mike Through: Outcome: Advance Directives: Spiritual Care Annotation Annotation: Stallion Manager introduced self and spiritual care services to patient, explaining services available and checking in to see how patient is doing today. Patient shared that he feels like he is doing well despite all of the changes in what he is going through. Together we processed what was happened and potentially what to expect in the time ahead. We spoke about prayer and spiritual goals. Patient spoke about his spirituality and what spiritual goals he wants to focus on in his own life. Stallion Manager made a plan to follow-up tomorrow. Please reach out with any needs/concerns. Rev. Mack Schmitz, Supportive Oncology Stallion Manager Music Therapy Note Kevan La Therapy Session Referral Type: New referral this admission Visit Type: New visit Session Start Time: 134 Session End Time: 1418 Intervention Delivery: In-person Conflict of Service: None Family Present for Session: None Pre-assessment Unable to Assess Reason: Outcomes not assessed Pain Score: 5 - Moderate pain Mood/Affect: Appropriate, Calm, Cooperative Treatment/Interventions Areas of Focus: Normalization Music Therapy Interventions: Assessment, Live music listening, Music sharing/discussion Interruption: Yes Interrupted by: Staff Interruption Outcome: Session ended Patient Fell Asleep at End of Session: No Post-assessment Unable to Assess Reason: Session interrupted Mood/Affect: Appropriate, Calm, Cooperative Continue Visiting: Yes Total Session Time (min): 36 minutes Narrative Assessment Detail: Patient presented awake and alert, supine in bed, displaying calm affect. MT and MTI introduced selves and roles and pt was receptive to music therapy education. Patient shared that they enjoy all types of music, and has been listening to blues lately. Patient agreed to a session at this time. Plan: MT and MTI engaged pt in live music listening and music sharing/discussion as a means of normalization. Intervention: Patient passively participated in music intervention by listening to music provided by MT with live singing and guitar accompaniment, and MTI with live singing and piano accompaniment. Patient also shared some of his playlist with MT and MTI. 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 Patient was very conversational, pleasant and cooperative. Session interrupted for going to a scan but pt reqeusted continued following. Follow-up: MT to continue to follow. Education Documentation No documentation found. Kevan La is a 49 y.o. male on day 9 of admission presenting with No Principal Problem: There is no principal problem currently on the Problem List. Please update the Problem List and refresh.. Subjective Pt is in a lot of pain this AM. Awaiting his PRN pain medication. Last BM 2 days ago. No issues with urination. Denies CP, SOB, N/V, diarrhea, fevers, chills. Objective 24 Hour Vitals Temp: [36.4 C (97.5 F)-36.5 C (97.7 F)] 36.5 C (97.7 F) Heart Rate: [78-79] 79 Resp: [16-18] 18 BP: (96-101)/(55-65) 99/55 Temp (24hrs), Av.4 C (97.6 F), Min:36.4 C (97.5 F), Max:36.5 C (97.7 F) 24 hour Intake/Output No intake or output data in the 24 hours ending 11/19/24 1254 Exam: General: Resting in bed on his rigth side, no acute distress. HEENT: Normocephalic and atraumatic. EOMI, sclera non-icteric Cardiovascular: RRR, no r/m/g Pulmonary: Lungs clear to auscultation bilaterally. No wheezes/ rhonchi/ rales GI: firm, but not rigid, non-tender : No Wallace cath Extremities: No LE edema. Skin: Left buttock wound with wound pack on left buttock which appears clean and dry. L thigh lesion is with surrounding erythema and some serous drainage. Neurologic: CN II-XII grossly intact. Moving extremities spontaneously Psych: Pleasant. Appropriate mood and affect Labs CBC Results from last 72 hours Lab Units 11/19/24 0608 11/18/24 0611/17/24 0515 WBC AUTO x10*3/uL 12.1* 12.3* 11.0 HEMOGLOBIN g/dL 9.0* 9.0* 8.3* HEMATOCRIT % 29.6* 29.9* 26.6* PLATELETS AUTO x10*3/uL 758* 785* 639* BMP Results from last 72 hours Lab Units 11/19/24 0608 11/18/24 0627 11/17/24 0515 SODIUM mmol/L 134* 135* 134* POTASSIUM mmol/L 3.9 4.5 4.0 CHLORIDE mmol/L 99 99 100 BUN mg/dL 15 14 13 CREATININE mg/dL 1.15 1.22 1.28 MAGNESIUM mg/dL 2.06 2.19 2.17 PHOSPHORUS mg/dL 2.8 2.7 3.2 Medications Scheduled Medications acetaminophen, 975 mg, oral, TID amoxicillin-pot clavulanate, 1 tablet, oral, q12h BERNADETTE chlorhexidine, , Topical, BID clindamycin, , Topical, BID enoxaparin, 40 mg, subcutaneous, q24h folic acid, 1 mg, oral, Daily lactated Ringer's, 500 mL, intravenous, Once melatonin, 3 mg, oral, Nightly multivitamin with minerals, 1 tablet, oral, Daily polyethylene glycol, 17 g, oral, BID sennosides-docusate sodium, 2 tablet, oral, BID varenicline tartrate, 1 mg, oral, BID Continuous Medications PRN Medications PRN medications: HYDROmorphone, naloxone, ondansetron, oxyCODONE, oxyCODONE Assessment/Plan Kevan La is a 49 y.o. male with refractory hidradenitis supprativa (HS) not responding to povorcitinib (RCT candidate), apremilast, isotretinoin, adalimumab, infliximab, moxifloxacin/metronidazole, minocyclin, clindamycin, rifampin, augmentin and doxycycline, transferred from [facility] regarding 14cm gluteal fluid collection. He was recently admitted for the same L. gluteal abscess which was 9.2 x 5.7 x 13.2cm in size s/p I&D. Pending speciation of culture he was discharged with a course of Unasyn per ID however returns due to gluteal pain and questionable sepsis, CT Pelvis at OSH with large ulcerative wound at the left buttock with an adjacent 14.9 cm enhancing mass involving the left gluteal muscles and overlying subcutaneous tissue, larger than CT in 08/2024, which may represent failure of current antibiotic regimen. ACS surgery engaged, recommended no surgical interventions. Endocrinology engaged for hypercalcemia. Heme also following. S/p Bx of peripheral nodule and tissue Cx on 11/12/24 c/f SCC (primary vs metastatic lesion). Additional biopsies taken by dermatology 11/15 showed invasive SCC. Tumor board meeting 11/18/24 recommended initial management by Med Onc. No immediate surgical interventions recommended. 11/19 Updates: - Oncology consulted; CT C/A/P w/ contrast ordered - started mIVF 100 ml/hr LR prior to CT - requested AL stain from Derm path on 11/15 specimens - follow-up Heme if any (awaiting FLC) #L gluteal SCC iso chronic HS-associated wound and SCC of L thigh (likely a metastatic lesion) :: confirmed on bx 11/15/24 :: Tumor board 11/18/24 recommended management by Med Onc, no surgical intervention at this time - Oncology consulted - CT C/A/P w/ contrast ordered #Cancer and wound related pain - increased dilaudid 0.6 mg -> 1g Q 2 hrs PRN breakthrough pain; continue oxycodone 10 mg Q 3 hrs severe pain and oxycodone 5 mg Q 3 hrs mod pain + scheduled tylenol 1g TID #Gluteal wound s/p abscess I&D 10/13 #Refractory hidradenitis suppurativa #Deep tissue SSTI #Leukocytosis ::CT Pelvis 11/08/24: Large ulcerative wound at the left buttock with an adjacent 14.9 cm enhancing mass involving the left gluteal muscles and overlying subcutaneous tissue, larger than CT in 08/2024 :: Last dose of Povorcitanib 10/10 :: Blood Cx from 11/10 NGTD :: Tissue Cx from 11/12 growing rare proteus mirabilis, Augmentin susceptible :: V/Z (11/08 - 11/14) :: PO Augmentin 875 BID x 3 weeks (11/14-present) :: Quant TB, HIV, Hep B surface antigen/antibody, Hep B core antibody, and Hep C testing-- all negative Plan: - Continue Topical Clindamycin BID, Hibiclens BID - Holding home PO iron iso possible infection - Dermatology recs appreciated: - Continue hibiclens wash BID, topical clindamycin BID, and wound care - initiated orders for approval from insurance for Bimzelx (IL17A/F inhibitor) #Hypotension :: appears long standing on chart review, pt confirmed hx of low BPs :: normal TSH - CTM #Hypercalcemia, mild ::presented with CoCa 12.5; iCa 1.69; 24 hr urine Ca 384 (elevated) :: PTH <6.3 ::PTHrP elevated ::25-OH vit D 79; 1.25-OH vit D 35.9 :: SPEP with M protein spike: monoclonal free lambda light chains in beta region :: UPEP wnl :: elevated IgA; IgG and IgM wnl ::TSH wnl :: s/p pamidronate 90 mg IV 11/12/24 - Endocrine signed off with final recs: - if hypercalcemia reoccurs, can give 90 mg iv pamidronate 1-2 weeks after initial admin. (November 19 - ). - Heme engaged, awaiting free light chains - requested AL stain for bx from 11/15/24 #Nicotine Use - Continue home Chantix #Subacute PARUL - improving ::Cr ~1.6 on last admission, Cr continues to improve ::On prior admission was evaluated for this with normal UA, CT with no hydronephrosis, felt to be 2/2 NSAID use for HS ::A1c and UA normal on admission at [facility] ::FeUrea 48.2% (>35=> suggestive of intrinsic renal disease) - Avoid nephrotoxic drug, hypotension, sepsis, dehydration - Continuing to encourage oral hydration and monitor serum calcium #Bladder Calculi ::Incidentally noted on CT Pelvis from OSH, asymptomatic, max diam is 1.5 cm #Normocytic Anemia #Folate Deficiency :: Hgb 10.4 at [facility], Hgb 8.8 on admission, Hgb 9.0 today :: 10/10/24: decr TIBC 218 and Fe 24; normal ferritin 259 :: B9 decreased at 4.6, B12 328 (wnl) :: Holding home PO iron :: pt consented for blood transfusion on 11/13/24 - no evidence of bleeding, pt is HD stable (BPs are soft at baseline per pt) - continue folate supplementation #Thrombocytosis :: reactive +/- iron deficiency component +/- hemoconcentration - CTM F: LR 100 ml/hr E: Keep mg >2, phos >3 and K >4 N: Regular A: PIV DVT ppx: lovenox GI ppx: None Bowel care: Sennosides, Miralax Code Status: Full Code (confirmed on admission) Isa Turner MD, PGY-1 Cosigned by Gilbetr Sylvester MD at 11/19/2024 3:09 PM EST Associated attestation - Gilbert Sylvester MD - 11/19/2024 3:09 PM EST I saw and evaluated the patient. I personally obtained the gomez and critical portions of the history and physical exam or was physically present for gomez and critical portions performed by the resident/fellow. I reviewed the resident/fellow's documentation and discussed the patient with the resident/fellow. I agree with the resident/fellow's medical decision making as documented in the note. Nutrition Follow Up Assessment: Patient is a 49 y.o. male presented 11/10 with left gluteal abscess. 11/12 - Newly diagnosed peripheral nodule and tissue of SCC. Nutrition History: Food and Nutrient History: Met with patient who reports eating 50% of his lunch and dinner entrees yesterday. Did not order breakfast this morning. "I didn't feel right". Lunch tray (chicken noodle soup, gingerale, O.J. and coffee) arrived while talking with patient. Per review of [employer] [facility] Menu selections, patient has been consuming 2-3 bowls of chicken noodle soup daily. Only chooses entrees intermittently. Patient reports drinking a daily serving of Ensure. "When I get it". Declines increasing ONS to BID, but agrees to trying chocolate Magic Cup. Food Allergy: (Banana and avocado.) Anthropometrics: Height: 200.6 cm (6' 6.98") Weight: 104 kg (230 lb) BMI (Calculated): 25.93 IBW/kg (Dietitian Calculated): 100 kg Percent of IBW: 104.3 % Weight History: No new weights this admission. Nutrition Focused Physical Exam Findings: Edema: R UE nonpitting. Physical Findings: Skin: Positive (Chronic left thigh/hip hidradenitis with deep abscess/myositis.) Digestive System Findings: (Reports constipation. "They're still working on it.") Nutrition Significant Labs: Vitamin D, 25 Hydroxy, Total 79 (11/10/24) General Chemistry reviewed: (11/18/24) Labs wnl except sodium 135(L). Nutrition Specific Medications: Scheduled medications acetaminophen, 975 mg, oral, TID amoxicillin-pot clavulanate, 1 tablet, oral, q12h BERNADETTE chlorhexidine, , Topical, BID clindamycin, , Topical, BID enoxaparin, 40 mg, subcutaneous, q24h folic acid, 1 mg, oral, Daily melatonin, 3 mg, oral, Nightly polyethylene glycol, 17 g, oral, BID sennosides-docusate sodium, 2 tablet, oral, BID varenicline tartrate, 1 mg, oral, BID Continuous medications PRN medications PRN medications: HYDROmorphone, naloxone, ondansetron, oxyCODONE, oxyCODONE I/O: Last BM Date: 11/17/24; Stool Appearance: Soft (11/17/24 2100) Dietary Orders (From admission, onward) Start Ordered 11/14/24 1058 Adult diet Regular Diet effective now Question: Diet type Answer: Regular 11/14/24 1057 11/11/24 1048 Oral nutritional supplements Until discontinued Comments: Chocolate. Question Answer Comment Deliver with Lunch Select supplement: Ensure Plus 11/11/24 1047 11/10/24 0427 May Participate in Room Service ( ROOM SERVICE MAY PARTICIPATE) Once Question: . Answer: Yes 11/10/24425 Estimated Needs: Total Energy Estimated Needs in 24 hours (kCal): 2700 kCal Method for Estimating Needs: IBW / 27 kcal Total Protein Estimated Needs in 24 Hours (g): 135 g Method for Estimating 24 Hour Protein Needs: IBW / 1.35 g Nutrition Diagnosis Malnutrition Diagnosis Patient has Malnutrition Diagnosis: Yes Diagnosis Status: Active Malnutrition Diagnosis: Moderate malnutrition related to acute disease or injury As Evidenced by: meeting < 75% of EER for > 1 week, mild fat loss and muscle wasting and 10.2% weight loss x ~ 3 weeks. Nutrition Diagnosis Patient has Nutrition Diagnosis: Yes Diagnosis Status (1): Active Nutrition Diagnosis 1: Increased nutrient needs Related to (1): Increased metabolic demand As Evidenced by (1): hidradentitis suppurativa infection ,S/p Bx of peripheral nodule and tissue Cx on 11/12/24 c/f SCC (primary vs metastatic lesion). Nutrition Interventions/Recommendations Nutrition prescription for oral nutrition Nutrition Recommendations: Regular diet. Continue Ensure Plus (350 kcal and 13 g protein daily. Start Magic Cup (240 kcal and 8 g protien) daily. Order daily MVI Aggressive bowel regimen. Patient c/o constipation. Nutrition Interventions/Goals: Interventions: Medical food supplement, Meals and snacks Education Documentation No documentation found. Nutrition Monitoring and Evaluation Food/Nutrient Related History Monitoring Monitoring and Evaluation Plan: Intake / amount of food Intake / Amount of food: Consumes at least 75% or more of meals/snacks/supplements Anthropometric Measurements Monitoring and Evaluation Plan: Body weight Body Weight: Body weight - Maintain stable weight Biochemical Data, Medical Tests and Procedures Criteria: Labs wnl Physical Exam Findings Monitoring and Evaluation Plan: Skin Skin Finding: Imparied wound healing - Skin to heal Goal Status: Goal(s) not achieved Time Spent (min): 30 minutes Transitional Care Coordination Progress Note: Patient discussed during interdisciplinary rounds. Team members present: MIGUEL NIELSEN Plan per Medical/Surgical team: Gluteal abscess Payor: Vincentcristian Discharge disposition: [facility] Potential Barriers: medical ADOD: 2-3 days Updated notes sent to [facility]. Will continue to monitor for discharge planning needs. Julisa GARZA, salt maker Coordinator (TCC) [phone] Physical Therapy Physical Therapy Treatment Patient Name: Kevan HITCHCOCKN: [id number] Department: [facility] 3 Room: [address] [place] [address] Today's Date: 11/18/2024 Time Calculation Start Time: 1142 Stop Time: 1200 Time Calculation (min): 18 min Assessment/Plan PT Assessment PT Assessment Results: Decreased strength, Decreased endurance, Decreased mobility, Pain End of Session Communication: Bedside nurse Assessment Comment: Pt progressed ambulation to 40' using FWW with CGA. Pt unable to tolerate sitting at EOB due to L buttocks pain and leans to R elbow untile completing STS transfer. End of Session Patient Position: Bed, 3 rail up, Alarm off, not on at start of session PT Plan Treatment/Interventions: Bed mobility, Transfer training, Gait training, Therapeutic exercise, Therapeutic activity PT Plan: Ongoing PT PT Frequency: 3 times per week PT Discharge Recommendations: Moderate intensity level of continued care Equipment Recommended upon Discharge: Wheeled walker PT Recommended Transfer Status: Assist x1, Assistive device PT - OK to Discharge: Yes (POC/goals/discharge rec intensity created) General Visit Information: PT Visit PT Received On: 11/18/24 General Prior to Session Communication: Bedside nurse Patient Position Received: Bed, 3 rail up, Alarm off, not on at start of session General Comment: Pt supine in bed upon arrival. Pt pleasant and agreeable to therapy. Subjective Precautions: Precautions Hearing/Visual Limitations: glasses Medical Precautions: Fall precautions Objective Pain: Cognition: Cognition Overall Cognitive Status: Within Functional Limits Coordination: Activity Tolerance: Activity Tolerance Endurance: Tolerates 10 - 20 min exercise with multiple rests Treatments: Bed Mobility Bed Mobility: Yes Bed Mobility 1 Bed Mobility 1: Supine to sitting Level of Assistance 1: Close supervision Bed Mobility Comments 1: increased time to complete, use of bed rails Bed Mobility 2 Bed Mobility 2: Sitting to supine Level of Assistance 2: Close supervision Ambulation/Gait Training Ambulation/Gait Training Performed: Yes Ambulation/Gait Training 1 Surface 1: Level tile Device 1: Rolling walker Gait Support Devices: Gait belt Assistance 1: Contact guard Quality of Gait 1: Forward flexed posture, Decreased step length, Diminished heel strike Comments/Distance (ft) 1: 40' distance limited to increased L LE pain Transfers Transfer: Yes Transfer 1 Transfer From 1: Bed to, Stand to Transfer to 1: Stand, Bed Technique 1: Sit to stand, Stand to sit Transfer Device 1: Walker Transfer Level of Assistance 1: Close supervision Outcome Measures: [facility] Basic Mobility Turning from your back to your side while in a flat bed without using bedrails: A little Moving from lying on your back to sitting on the side of a flat bed without using bedrails: A little Moving to and from bed to chair (including a wheelchair): A little Standing up from a chair using your arms (e.g. wheelchair or bedside chair): A little To walk in hospital room: A little Climbing 3-5 steps with railing: Total Basic Mobility - Total Score: 16 Education Documentation Mobility Training, taught by Xin Walton PTA at 11/18/2024 12:19 PM. Learner: Patient Readiness: Acceptance Method: Explanation Response: Verbalizes Understanding Comment: Pt educated in FWW management. Education Comments No comments found. OP EDUCATION: Encounter Problems Encounter Problems (Active) Balance STG - Maintains dynamic standing balance with upper extremity support with CGA-> close (S), LRAD. (Progressing) Start: 11/12/24 Expected End: 11/26/24 Mobility STG - Patient will ambulate with CGA-> close (S), LRAD, 50 ft x2. (Progressing) Start: 11/12/24 Expected End: 11/26/24 PT Transfers STG - Patient will perform bed mobility with (S)-> (I). (Progressing) Start: 11/12/24 Expected End: 11/26/24 STG - Patient will transfer sit to and from stand CGA-> close (S). (Progressing) Start: 11/12/24 Expected End: 11/26/24 Pain - Adult Cosigned by Doris Guzman PT at 11/18/2024 2:47 PM EST Kevan La is a 49 y.o. male on day 8 of admission presenting with No Principal Problem: There is no principal problem currently on the Problem List. Please update the Problem List and refresh.. Subjective Pt is doing ok this AM. Awaiting next dose of pain medication. Pain is manageable. Objective 24 Hour Vitals Temp: [36.5 C (97.7 F)-36.6 C (97.9 F)] 36.6 C (97.9 F) Heart Rate: [71-82] 82 Resp: [16] 16 BP: (94-109)/(54-62) 95/54 Temp (24hrs), Av.6 C (97.8 F), Min:36.5 C (97.7 F), Max:36.6 C (97.9 F) 24 hour Intake/Output Intake/Output Summary (Last 24 hours) at 11/18/2024 1148 Last data filed at 11/18/2024 0140 Gross per 24 hour Intake 220 ml Output 1700 ml Net -1480 ml Exam: General: Resting in bed on his rigth side, no acute distress. HEENT: Normocephalic and atraumatic. EOMI, sclera non-icteric Cardiovascular: RRR, no r/m/g Pulmonary: Lungs clear to auscultation bilaterally. No wheezes/ rhonchi/ rales GI: firm, but not rigid, non-tender : No Wallace cath Extremities: No LE edema. Skin: Left buttock and left thigh wounds with wound pack on left buttock which appears clean and dry. Neurologic: CN II-XII grossly intact. Moving extremities spontaneously Psych: Pleasant. Appropriate mood and affect Labs CBC Results from last 72 hours Lab Units 11/18/24 0611/17/24 0515 11/16/24 0603 WBC AUTO x10*3/uL 12.3* 11.0 10.0 HEMOGLOBIN g/dL 9.0* 8.3* 8.5* HEMATOCRIT % 29.9* 26.6* 26.1* PLATELETS AUTO x10*3/uL 785* 639* 619* BMP Results from last 72 hours Lab Units 11/18/24 0627 11/17/24 0515 11/16/24 0603 SODIUM mmol/L 135* 134* 136 POTASSIUM mmol/L 4.5 4.0 3.7 CHLORIDE mmol/L 99 100 103 BUN mg/dL 14 13 13 CREATININE mg/dL 1.22 1.28 1.25 MAGNESIUM mg/dL 2.19 2.17 2.08 PHOSPHORUS mg/dL 2.7 3.2 2.9 Medications Scheduled Medications acetaminophen, 975 mg, oral, TID amoxicillin-pot clavulanate, 1 tablet, oral, q12h BERNADETTE chlorhexidine, , Topical, BID clindamycin, , Topical, BID enoxaparin, 40 mg, subcutaneous, q24h folic acid, 1 mg, oral, Daily melatonin, 3 mg, oral, Nightly polyethylene glycol, 17 g, oral, BID sennosides-docusate sodium, 2 tablet, oral, BID varenicline tartrate, 1 mg, oral, BID Continuous Medications PRN Medications PRN medications: HYDROmorphone, naloxone, ondansetron, oxyCODONE, oxyCODONE Assessment/Plan Kevan La is a 49 y.o. male with refractory hidradenitis supprativa (HS) not responding to povorcitinib (RCT candidate), apremilast, isotretinoin, adalimumab, infliximab, moxifloxacin/metronidazole, minocyclin, clindamycin, rifampin, augmentin and doxycycline, transferred from [facility] regarding 14cm gluteal fluid collection. He was recently admitted for the same L. gluteal abscess which was 9.2 x 5.7 x 13.2cm in size s/p I&D. Pending speciation of culture he was discharged with a course of Unasyn per ID however returns due to gluteal pain and questionable sepsis, CT Pelvis at OSH with large ulcerative wound at the left buttock with an adjacent 14.9 cm enhancing mass involving the left gluteal muscles and overlying subcutaneous tissue, larger than CT in 08/2024, which may represent failure of current antibiotic regimen. ACS surgery engaged, recommended no surgical interventions. Endocrinology engaged for hypercalcemia. Heme also following. Additional biopsies taken by dermatology 11/15. S/p Bx of peripheral nodule and tissue Cx on 11/12/24 c/f SCC (primary vs metastatic lesion). 11/17 Updates: - follow up on bx results (taken by Derm 11/15) - follow-up Heme (awaiting FLC), Derm recs -Pending cutaneous malignancy tumor board conference on Monday per Scot #Gluteal wound s/p abscess I&D 10/13 #Refractory hidradenitis suppurativa #Deep tissue SSTI #Leukocytosis ::Patient with history of refractory HS having failed multiple modalities, now c/b gluteal abscess which he was admitted for 3 weeks ago s/p I&D, BCx with marta puentesa s/p Unasyn complete 10/28/2024 presenting to OSH with initial c/f sepsis found to have worsening gluteal abscess ::CT 11/08/2024: Large ulcerative wound at the left buttock with an adjacent 14.9 cm enhancing mass involving the left gluteal muscles and overlying subcutaneous tissue, larger than CT in 08/2024 ::BP 90/50 on admit here but per review of prior admission, pressures typically land in the mid 90s systolic :: Last dose of Povorcitanib 10/10 :: Blood Cx from 11/10 NGTD :: Tissue Cx from 11/12 growing rare proteus mirabilis :: s/p tissue peripheral lesion bx 11/12 with Dermatology: SCC :: V/Z (11/08 - 11/14) :: PO Augmentin 875 BID x 3 weeks (11/14-present) :: Quant TB, HIV, Hep B surface antigen/antibody, Hep B core antibody, and Hep C testing-- all negative Plan: - Continue Topical Clindamycin BID, Hibiclens BID - Holding home PO iron iso possible infection - Pain: Tylenol TID, Oxy 5 Q4H prn mod pain and Oxy 10 Q6h prn severe pain, dilaudid 0.5 mg Q 3 hrs for breakthrough pain - Dermatology recs appreciated: - Continue hibiclens wash BID, topical clindamycin BID, and wound care - initiated orders for approval from insurance for Bimzelx (IL17A/F inhibitor) #Hypotension :: appears long standing on chart review, pt confirmed hx of low BPs :: normal TSH - CTM #Hypercalcemia, mild ::presented with CoCa 12.5; iCa 1.69; PTH <6.3 ::25-OH vit D 79; 1.25-OH vit D 35.9 ::PTHrP elevated :: SPEP with M protein spike; :: UPEP wnl :: elevated IgA :: urine Ca and 1.25-OH vit D levels pending ::TSH wnl :: s/p pamidronate 90 mg IV 11/12/24 - Heme engaged, will follow up recs - Endocrine signed off - if hypercalcemia reoccurs, can give 90 mg iv pamidronate 1-2 weeks after initial admin. (November 19 - ). #Nicotine Use - Continue home Chantix #Subacute PARUL ::Cr ~1.6 on last admission, Cr 1.44 on presentation to ::On prior admission was evaluated for this with normal UA, CT with no hydronephrosis, felt to be 2/2 NSAID use for HS ::A1c and UA normal on admission at [facility] ::FeUrea 48.2% (>35=> suggestive of intrinsic renal disease) - Avoid nephrotoxic drug, hypotension, sepsis, dehydration - Continuing to encourage oral hydration and treat hypercalcemia #Bladder Calculi ::Incidentally noted on CT Pelvis from OSH, asymptomatic, max diam is 1.5 cm #Anemia :: Hgb 10.4 at [facility], Hgb 8.8 on admission, Hgb 9.0 today :: 10/10/24: decr TIBC 218 and Fe 24; normal ferritin 259 :: B9 decreased at 4.6, B12 328 :: Holding home PO iron iso possible infection - no evidence of bleeding, pt is HD stable (BPs are soft at baseline per pt), no tachycardia, no neurological changes - maintaining active type and screen; pt consented for blood transfusion on 11/13/24 - continue folate supplementation #Thrombocytosis :: reactive +/- iron deficiency component - CTM F: PRN E: Keep mg >2, phos >3 and K >4 N: Regular A: PIV DVT ppx: lovenox GI ppx: None Bowel care: Sennosides, Miralax Code Status: Full Code (confirmed on admission) Isa Turner MD, PGY-1 Cosigned by Claudio Plunkett MD at 11/18/2024 1:59 PM EST Associated attestation - Claudio Plunkett MD - 11/18/2024 1:59 PM EST I saw and evaluated the patient. I personally obtained the gomez and critical portions of the history and physical exam or was physically present for gomez and critical portions performed by the resident/fellow. I reviewed the resident/fellow's documentation and discussed the patient with the resident/fellow. I agree with the resident/fellow's medical decision making as documented in the note with the exception/addition of the following: Awaiting outcome of tumor board meeting today . Kevan La is a 49 y.o. male on day 7 of admission presenting with No Principal Problem: There is no principal problem currently on the Problem List. Please update the Problem List and refresh.. Subjective Pain is manageable Objective 24 Hour Vitals Temp: [36 C (96.8 F)-36.1 C (97 F)] 36.1 C (97 F) Heart Rate: [71-80] 80 Resp: [16-17] 16 BP: (98-109)/(55-70) 109/70 Temp (24hrs), Av.1 C (96.9 F), Min:36 C (96.8 F), Max:36.1 C (97 F) 24 hour Intake/Output Intake/Output Summary (Last 24 hours) at 11/17/2024 1105 Last data filed at 11/17/2024 0946 Gross per 24 hour Intake 360 ml Output 1450 ml Net -1090 ml Exam: General: Resting in bed on his rigth side, no acute distress. Well developed. Appears stated age. HEENT: Normocephalic and atraumatic. EOMI, sclera non-icteric Cardiovascular: RRR, no r/m/g Pulmonary: Lungs clear to auscultation bilaterally. No wheezes/ rhonchi/ rales GI: firm, but not rigid, non-tender : No Wallace cath Extremities: No LE edema. R hip skin is intact, no lesions, no bruising, non tender with heel squeeze. Skin: Left buttock and left thigh wounds with wound pack on left buttock which appears clean and dry. Neurologic: CN II-XII grossly intact. Moving extremities spontaneously Psych: Pleasant. Appropriate mood and affect Labs CBC Results from last 72 hours Lab Units 11/17/24 0515 11/16/24 0603 11/15/24 1256 WBC AUTO x10*3/uL 11.0 10.0 10.7 HEMOGLOBIN g/dL 8.3* 8.5* 8.1* HEMATOCRIT % 26.6* 26.1* 24.9* PLATELETS AUTO x10*3/uL 639* 619* 531* BMP Results from last 72 hours Lab Units 11/17/24 0515 11/16/24 0603 11/15/24 0535 SODIUM mmol/L 134* 136 138 POTASSIUM mmol/L 4.0 3.7 3.7 CHLORIDE mmol/L 100 103 105 BUN mg/dL 13 13 10 CREATININE mg/dL 1.28 1.25 1.40* MAGNESIUM mg/dL 2.17 2.08 1.93 PHOSPHORUS mg/dL 3.2 2.9 2.5 Medications Scheduled Medications acetaminophen, 975 mg, oral, TID amoxicillin-pot clavulanate, 1 tablet, oral, q12h BERNADETTE chlorhexidine, , Topical, BID clindamycin, , Topical, BID enoxaparin, 40 mg, subcutaneous, q24h folic acid, 1 mg, oral, Daily melatonin, 3 mg, oral, Nightly oral hydration, 250 mL, oral, Once polyethylene glycol, 17 g, oral, BID sennosides-docusate sodium, 2 tablet, oral, BID varenicline tartrate, 1 mg, oral, BID Continuous Medications PRN Medications PRN medications: HYDROmorphone, naloxone, ondansetron, oxyCODONE, oxyCODONE Assessment/Plan Kevan La is a 49 y.o. male with refractory hidradenitis supprativa (HS) not responding to povorcitinib (RCT candidate), apremilast, isotretinoin, adalimumab, infliximab, moxifloxacin/metronidazole, minocyclin, clindamycin, rifampin, augmentin and doxycycline, transferred from [facility] regarding 14cm gluteal fluid collection. He was recently admitted for the same L. gluteal abscess which was 9.2 x 5.7 x 13.2cm in size s/p I&D. Pending speciation of culture he was discharged with a course of Unasyn per ID however returns due to gluteal pain and questionable sepsis, CT Pelvis at OSH with large ulcerative wound at the left buttock with an adjacent 14.9 cm enhancing mass involving the left gluteal muscles and overlying subcutaneous tissue, larger than CT in 08/2024, which may represent failure of current antibiotic regimen. ACS surgery engaged, recommended no surgical interventions. Endocrinology engaged for hypercalcemia. Heme also following. Additional biopsies taken by dermatology 11/15. S/p Bx of peripheral nodule and tissue Cx on 11/12/24 c/f SCC (primary vs metastatic lesion). 11/17 Updates: - continue Augmentin, should cover Proteus, per ID - follow up on bx results (taken by Derm 11/15) - follow-up Heme (awaiting [facility]), Derm recs -Pending cutaneous malignancy tumor board conference on Monday per Derm #Gluteal wound s/p abscess I&D 10/13 #Refractory hidradenitis suppurativa #Deep tissue SSTI #Leukocytosis ::Patient with history of refractory HS having failed multiple modalities, now c/b gluteal abscess which he was admitted for 3 weeks ago s/p I&D, BCx with slackia exigua s/p Unasyn complete 10/28/2024 presenting to OSH with initial c/f sepsis found to have worsening gluteal abscess ::CT 11/08/2024: Large ulcerative wound at the left buttock with an adjacent 14.9 cm enhancing mass involving the left gluteal muscles and overlying subcutaneous tissue, larger than CT in 08/2024 ::BP 90/50 on admit here but per review of prior admission, pressures typically land in the mid 90s systolic ::WBC 13.9 on presentation, 11 this AM, improving :: Last dose of Povorcitanib 10/10 :: Blood Cx from 11/10 NGTD :: Tissue Cx from 11/12 growing rare proteus mirabilis :: s/p tissue peripheral lesion bx 11/12 with Dermatology: SCC :: V/Z (11/08 - 11/14) :: PO Augmentin 875 BID x 3 weeks (11/14-present) Plan: - Continue Topical Clindamycin BID, Hibiclens BID - Holding home PO iron iso possible infection - Pain: Tylenol TID, Oxy 5 Q4H prn mod pain and Oxy 10 Q6h prn severe pain, dilaudid 0.5 mg Q 3 hrs for breakthrough pain - Dermatology recs appreciated: - Continue hibiclens wash BID, topical clindamycin BID, and wound care - initiated orders for approval from insurance for Bimzelx (IL17A/F inhibitor) - Quant TB pending - HIV, Hep B surface antigen/antibody, Hep B core antibody, and Hep C testing-- all negative #Hypotension :: appears long standing on chart review, pt confirmed hx of low BPs :: normal TSH - CTM #Hypercalcemia, mild ::presented with CoCa 12.5; iCa 1.69; PTH <6.3 ::25-OH vit D 79; 1.25-OH vit D 35.9 ::PTHrP elevated :: SPEP with M protein spike; :: UPEP wnl :: elevated IgA :: urine Ca and 1.25-OH vit D levels pending ::TSH wnl :: s/p pamidronate 90 mg IV 11/12/24 - Heme engaged, will follow up recs - Endocrine signed off - if hypercalcemia reoccurs, can give 90 mg iv pamidronate 1-2 weeks after initial admin. First admin was on 11/12 #Nicotine Use - Continue home Chantix #Subacute PARUL ::Cr ~1.6 on last admission, Cr 1.44 on presentation to ::On prior admission was evaluated for this with normal UA, CT with no hydronephrosis, felt to be 2/2 NSAID use for HS ::A1c and UA normal on admission at [facility] ::FeUrea 48.2% (>35=> suggestive of intrinsic renal disease) - Avoid nephrotoxic drug, hypotension, sepsis, dehydration - Continuing to encourage oral hydration and treat hypercalcemia #Bladder Calculi ::Incidentally noted on CT Pelvis from OSH, asymptomatic, max diam is 1.5 cm #Anemia :: Hgb 10.4 at [facility], Hgb 8.8 on admission, Hgb 7.7 today :: 10/10/24: decr TIBC 218 and Fe 24; normal ferritin 259 :: Holding home PO iron iso possible infection - no evidence of bleeding, pt is HD stable (BPs are soft at baseline per pt), no tachycardia, no neurological changes - maintaining active type and screen; pt consented for blood transfusion on 11/13/24 - B9 decreased at 4.6, B12 328 - continue folate supplementation F: PRN E: Keep mg >2, phos >3 and K >4 N: Regular A: PIV DVT ppx: lovenox GI ppx: None Bowel care: Sennosides, Miralax Code Status: Full Code (confirmed on admission) Khris Raya MD IM, PGY-2 Cosigned by Claudio Plunkett MD at 11/17/2024 11:28 AM EST Associated attestation - Claudio Plunkett MD - 11/17/2024 11:28 AM EST I saw and evaluated the patient. I personally obtained the gomez and critical portions of the history and physical exam or was physically present for gomze and critical portions performed by the resident/fellow. I reviewed the resident/fellow's documentation and discussed the patient with the resident/fellow. I agree with the resident/fellow's medical decision making as documented in the note with the exception/addition of the following: had no new complaints on rounds today . Tumor Board Meeting tomorrow. Kevan La is a 49 y.o. male on day 6 of admission presenting with No Principal Problem: There is no principal problem currently on the Problem List. Please update the Problem List and refresh.. Subjective Patient was seen at bedside. We discussed the etiology of his hypercalcemia, mobility was encouraged and we discussed the possible need for a repeat pamidronate dosing Objective Last Recorded Vitals Blood pressure 96/57, pulse 77, temperature 36 C (96.8 F), temperature source Temporal, resp. rate 16, height 2.006 m (6' 6.98"), weight 104 kg (230 lb), SpO2 95%. Intake/Output last 3 Shifts: I/O last 3 completed shifts: In: 1720 (16.5 mL/kg) [P.O.:720; I.V.:1000 (9.6 mL/kg)] Out: 2900 (27.8 mL/kg) [Urine:2900 (0.8 mL/kg/hr)] Weight: 104.3 kg Constitutional: NAD. Alert and Cooperative HEENT: EOMI, Anicteric scleras Cardiovascular: normal HR Respiratory: no increased wob, or accessory muscle use. Psych : appropriate affect Relevant Results Results from last 7 days Lab Units 11/16/24 0603 11/15/24 0535 11/14/24 1042 11/13/24 1723 11/13/24 1535 11/13/24 1512 POCT GLUCOSE mg/dL -- -- -- -- -- 96 GLUCOSE mg/dL 115* 116* 97 117* 83 -- . Results from last 7 days Lab Units 11/16/24 0603 11/15/24 0535 11/14/24 1042 SODIUM mmol/L 136 138 138 POTASSIUM mmol/L 3.7 3.7 3.8 CHLORIDE mmol/L 103 105 107 CO2 mmol/L 22 24 22 BUN mg/dL 13 10 8 CREATININE mg/dL 1.25 1.40* 1.38* CALCIUM mg/dL 9.2 9.4 9.1 PROTEIN TOTAL g/dL 6.5 6.3* 5.9* BILIRUBIN TOTAL mg/dL 0.2 0.2 0.3 ALK PHOS U/L 78 80 80 ALT U/L 17 21 17 AST U/L 11 18 15 GLUCOSE mg/dL 115* 116* 97 . Results from last 7 days Lab Units 11/16/24 0603 11/15/24 1256 11/14/24 1042 WBC AUTO x10*3/uL 10.0 10.7 9.3 HEMOGLOBIN g/dL 8.5* 8.1* 7.7* HEMATOCRIT % 26.1* 24.9* 24.1* PLATELETS AUTO x10*3/uL 619* 531* 507* Scheduled medications acetaminophen, 975 mg, oral, TID amoxicillin-pot clavulanate, 1 tablet, oral, q12h BERNADETTE chlorhexidine, , Topical, BID clindamycin, , Topical, BID enoxaparin, 40 mg, subcutaneous, q24h folic acid, 1 mg, oral, Daily HYDROmorphone, 0.2 mg, intravenous, Once melatonin, 3 mg, oral, Nightly oral hydration, 250 mL, oral, Once polyethylene glycol, 17 g, oral, BID sennosides-docusate sodium, 2 tablet, oral, BID varenicline tartrate, 1 mg, oral, BID Continuous medications PRN medications PRN medications: HYDROmorphone, naloxone, ondansetron, oxyCODONE, oxyCODONE Assessment/Plan Kevan La is a 49 year old male with a PMH of refractory HS and gluteal abscess who is admitted to the hospital for gluteal wound abscess and HS. Endocrinology consulted for hypercalcemia. CoCa on consult was 12.5 with PTH <6.3 indicating a non PTH mediated cause, Total Vit 79, 1,25 vit D 35.9, and PTHrP 12. PTHrP is elevated and patient now has bx proven squamous cell carcinoma at the site of his chronic wounds (this could not be stained for PTHrP inhouse unfortunately). He also has a prolonged history of immobility since 06/2024 due to his wounds. His hypercalcemia is likely a combination of malignancy and immobility. He's s/p 1 dose of pamidronate 90 mg IV on 11/12. With most recent CoCa 10 off of IV fluids. - Can repeat pamidronate 90 mg IV 1-2 weeks after initial administration if indicate (hypercalcemia recurs) - Endocrinology will sign off Ashly Patterson MD Endocrinology, PGY 5 Pager [phone] or secure chat Case discussed with Dr. Marshall Cosigned by Cecile Marshall MD at 11/18/2024 12:09 PM EST Associated attestation - Cecile Marshall MD - 11/18/2024 12:09 PM EST I saw and evaluated the patient. I personally obtained the gomez and critical portions of the history and physical exam or was physically present for gomez and critical portions performed by the resident/fellow. I reviewed the resident/fellow's documentation and discussed the patient with the resident/fellow. I agree with the resident/fellow's medical decision making as documented in the note. Kevan La is a 49 y.o. male on day 6 of admission presenting with No Principal Problem: There is no principal problem currently on the Problem List. Please update the Problem List and refresh.. Subjective No acute events over night. Pt is seen by the bedside this morning. Endorses doing much better with less pain. Pt denies CP, SOB, lightheadedness, dizziness, abdominal pain, N/V. Objective 24 Hour Vitals Temp: [36.4 C (97.5 F)-36.7 C (98.1 F)] 36.4 C (97.5 F) Heart Rate: [71-74] 74 Resp: [16] 16 BP: (99-103)/(58-64) 103/58 Temp (24hrs), Av.6 C (97.8 F), Min:36.4 C (97.5 F), Max:36.7 C (98.1 F) 24 hour Intake/Output Intake/Output Summary (Last 24 hours) at 11/16/2024 0717 Last data filed at 11/16/2024 0500 Gross per 24 hour Intake 720 ml Output 1800 ml Net -1080 ml Exam: General: Resting in bed on his rigth side, no acute distress. Well developed. Appears stated age. HEENT: Normocephalic and atraumatic. EOMI, sclera non-icteric Cardiovascular: RRR, no r/m/g Pulmonary: Lungs clear to auscultation bilaterally. No wheezes/ rhonchi/ rales GI: firm, but not rigid, non-tender : No Wallace cath Extremities: No LE edema. R hip skin is intact, no lesions, no bruising, non tender with heel squeeze. Skin: Left buttock and left thigh wounds with wound pack on left buttock which appears clean and dry. Neurologic: CN II-XII grossly intact. Moving extremities spontaneously Psych: Pleasant. Appropriate mood and affect Labs CBC Results from last 72 hours Lab Units 11/16/24 0603 11/15/24 1256 11/14/24 1042 WBC AUTO x10*3/uL 10.0 10.7 9.3 HEMOGLOBIN g/dL 8.5* 8.1* 7.7* HEMATOCRIT % 26.1* 24.9* 24.1* PLATELETS AUTO x10*3/uL 619* 531* 507* BMP Results from last 72 hours Lab Units 11/16/24 0603 11/15/24 0535 11/14/24 1042 11/13/24 1723 11/13/24 1535 SODIUM mmol/L 136 138 138 < > 143 POTASSIUM mmol/L 3.7 3.7 3.8 < > 2.7* CHLORIDE mmol/L 103 105 107 < > 120* BUN mg/dL 13 10 8 < > 6 CREATININE mg/dL 1.25 1.40* 1.38* < > 0.93 MAGNESIUM mg/dL 2.08 1.93 1.78 -- 1.23* PHOSPHORUS mg/dL 2.9 2.5 -- -- 1.6* < > = values in this interval not displayed. Medications Scheduled Medications acetaminophen, 975 mg, oral, TID amoxicillin-pot clavulanate, 1 tablet, oral, q12h BERNADETTE chlorhexidine, , Topical, BID clindamycin, , Topical, BID enoxaparin, 40 mg, subcutaneous, q24h folic acid, 1 mg, oral, Daily HYDROmorphone, 0.2 mg, intravenous, Once melatonin, 3 mg, oral, Nightly oral hydration, 250 mL, oral, Once polyethylene glycol, 17 g, oral, BID sennosides-docusate sodium, 2 tablet, oral, BID varenicline tartrate, 1 mg, oral, BID Continuous Medications PRN Medications PRN medications: HYDROmorphone, naloxone, ondansetron, oxyCODONE, oxyCODONE Assessment/Plan Kevan La is a 49 y.o. male with refractory hidradenitis supprativa (HS) not responding to povorcitinib (RCT candidate), apremilast, isotretinoin, adalimumab, infliximab, moxifloxacin/metronidazole, minocyclin, clindamycin, rifampin, augmentin and doxycycline, transferred from [facility] regarding 14cm gluteal fluid collection. He was recently admitted for the same L. gluteal abscess which was 9.2 x 5.7 x 13.2cm in size s/p I&D. Pending speciation of culture he was discharged with a course of Unasyn per ID however returns due to gluteal pain and questionable sepsis, CT Pelvis at OSH with large ulcerative wound at the left buttock with an adjacent 14.9 cm enhancing mass involving the left gluteal muscles and overlying subcutaneous tissue, larger than CT in 08/2024, which may represent failure of current antibiotic regimen. ACS surgery engaged, recommended no surgical interventions. Endocrinology engaged for hypercalcemia. Heme also following. Additional biopsies taken by dermatology 11/15. S/p Bx of peripheral nodule and tissue Cx on 11/12/24 c/f SCC (primary vs metastatic lesion). 11/16 Updates: - continue Augmentin, should cover Proteus, per ID - follow up on bx results (taken by Derm 11/15) - follow-up Heme, Endo, Derm recs - follow-up free chains -Pending cutaneous malignancy tumor board conference on Monday per Derm #Gluteal wound s/p abscess I&D 10/13 #Refractory hidradenitis suppurativa #Deep tissue SSTI #Leukocytosis ::Patient with history of refractory HS having failed multiple modalities, now c/b gluteal abscess which he was admitted for 3 weeks ago s/p I&D, BCx with slackia exigua s/p Unasyn complete 10/28/2024 presenting to OSH with initial c/f sepsis found to have worsening gluteal abscess ::CT 11/08/2024: Large ulcerative wound at the left buttock with an adjacent 14.9 cm enhancing mass involving the left gluteal muscles and overlying subcutaneous tissue, larger than CT in 08/2024 ::BP 90/50 on admit here but per review of prior admission, pressures typically land in the mid 90s systolic ::WBC 13.9 on presentation, 11 this AM, improving :: Last dose of Povorcitanib 10/10 :: Blood Cx from 11/10 NGTD :: Tissue Cx from 11/12 growing rare proteus mirabilis :: s/p tissue peripheral lesion bx 11/12 with Dermatology: SCC :: V/Z (11/08 - 11/14) :: PO Augmentin 875 BID x 3 weeks (11/14-present) Plan: - Continue Topical Clindamycin BID, Hibiclens BID - Holding home PO iron iso possible infection - Pain: Tylenol TID, Oxy 5 Q4H prn mod pain and Oxy 10 Q6h prn severe pain, dilaudid 0.5 mg Q 3 hrs for breakthrough pain - Dermatology recs appreciated: - Continue hibiclens wash BID, topical clindamycin BID, and wound care - initiated orders for approval from insurance for Bimzelx (IL17A/F inhibitor) - Quant TB pending - HIV, Hep B surface antigen/antibody, Hep B core antibody, and Hep C testing-- all negative #Hypotension :: appears long standing on chart review, pt confirmed hx of low BPs :: normal TSH - CTM #Hypercalcemia, mild ::presented with CoCa 12.5; iCa 1.69; PTH <6.3 ::25-OH vit D 79; 1.25-OH vit D 35.9 ::PTHrP elevated :: SPEP with M protein spike; :: UPEP wnl :: elevated IgA :: urine Ca and 1.25-OH vit D levels pending ::TSH wnl :: s/p pamidronate 90 mg IV 11/12/24 - Heme engaged, will follow up recs #Nicotine Use - Continue home Chantix #Subacute PARUL ::Cr ~1.6 on last admission, Cr 1.44 on presentation to ::On prior admission was evaluated for this with normal UA, CT with no hydronephrosis, felt to be 2/2 NSAID use for HS ::A1c and UA normal on admission at [facility] ::FeUrea 48.2% (>35=> suggestive of intrinsic renal disease) - Avoid nephrotoxic drug, hypotension, sepsis, dehydration - Continuing to encourage oral hydration and treat hypercalcemia #Bladder Calculi ::Incidentally noted on CT Pelvis from OSH, asymptomatic, max diam is 1.5 cm #Anemia :: Hgb 10.4 at [facility], Hgb 8.8 on admission, Hgb 7.7 today :: 10/10/24: decr TIBC 218 and Fe 24; normal ferritin 259 :: Holding home PO iron iso possible infection - no evidence of bleeding, pt is HD stable (BPs are soft at baseline per pt), no tachycardia, no neurological changes - maintaining active type and screen; pt consented for blood transfusion on 11/13/24 - B9 decreased at 4.6, B12 328 - continue folate supplementation F: PRN E: Keep mg >2, phos >3 and K >4 N: Regular A: PIV DVT ppx: lovenox GI ppx: None Bowel care: Sennosides, Miralax Code Status: Full Code (confirmed on admission) Juliana Larios MD MPH IM, PGY-3 Cosigned by Claudio Plunkett MD at 11/16/2024 12:13 PM EST Associated attestation - Claudio Plunkett MD - 11/16/2024 12:13 PM EST I saw and evaluated the patient. I personally obtained the gomez and critical portions of the history and physical exam or was physically present for gomez and critical portions performed by the resident/fellow. I reviewed the resident/fellow's documentation and discussed the patient with the resident/fellow. I agree with the resident/fellow's medical decision making as documented in the note with the exception/addition of the following: I discussed 's care with him . Pain control improved today - Thanks to supportive oncology. There will be a tumor board meeting about on Monday . Occupational Therapy Occupational Therapy Occupational Therapy Treatment Name: Kevan La : 1975 Date: 11/15/24 Room: [address] [place] [address] Time Calculation Start Time: 1530 Stop Time: 1608 Time Calculation (min): 38 min Assessment: OT Assessment: Patient participated in bed level ADL this date. goal for bathing added. Patient demonstrated decline in ADL, anticipate due to pain and prolonged bedrest. He voiced motivation to return to prior level and voiced goal of standing. Recommend OT/PT co-tx to address standing due to increased weakness, patient fear. Continued OT indicated. Barriers to Discharge Home: Caregiver assistance, Physical needs Caregiver Assistance: Patient lives alone and/or does not have reliable caregiver assistance Physical Needs: Stair navigation into home limited by function/safety, In-home setup navigation limited by function/safety, Ambulating household distances limited by function/safety, 24hr ADL assistance needed Medical Staff Made Aware: Yes End of Session Communication: Bedside nurse End of Session Patient Position: Bed, 3 rail up, Alarm off, not on at start of session Plan: Treatment Interventions: ADL retraining, Functional transfer training, Endurance training, Patient/family training, Equipment evaluation/education, Compensatory technique education OT Frequency: 3 times per week OT Discharge Recommendations: Moderate intensity level of continued care Equipment Recommended upon Discharge: Wheeled walker OT Recommended Transfer Status: Maximum assist, Assist of 1 OT - OK to Discharge: Yes Subjective General: OT Last Visit OT Received On: 11/15/24 Reason for Referral: gluteal fluid collection (s/p biopsy by dermatology 11/12) Past Medical History Relevant to Rehab: refractory hidradenitis supprativa, (L) gluteal wound s/p recent I&D Prior to Session Communication: Bedside nurse Patient Position Received: Bed, 3 rail up, Alarm off, not on at start of session Precautions: Medical Precautions: Fall precautions Vitals: Date/Time Vitals Session Patient Position Pulse Resp SpO2 BP MAP (mmHg) 11/15/24 1450 -- -- 71 -- 96 % 99/64 -- Cognition: Overall Cognitive Status: Within Functional Limits Arousal/Alertness: Appropriate responses to stimuli Following Commands: Follows all commands and directions without difficulty Pain Assessment: 11/15/24 1530 Pain Assessment Pain Assessment (Pain number not provided. Patient reports hypersensitivity in bilateral feet, pain in left hip.) Pain Interventions Repositioned;Distraction Response to Interventions (mild improvment voiced per patient) Objective Activities of Daily Living: Grooming Grooming Level of Assistance: Maximum assistance (to comb hair following washing) Grooming Where Assessed: Bed level UE Bathing UE Bathing Level of Assistance: Minimum assistance, Minimal verbal cues (Patient able to wash UEs, chest, abdomen. He required assistance for back. Hair max assist to wash using shower cap.) LE Bathing LE Bathing Level of Assistance: Close supervision (to knees, dependent below knees) LE Bathing Where Assessed: Bed level UE Dressing UE Dressing Level of Assistance: Minimum assistance, Minimal verbal cues UE Dressing Where Assessed: Bed level LE Dressing Pants Level of Assistance: Maximum assistance Sock Level of Assistance: Dependent LE Dressing Where Assessed: Bed level Outcome Measures: [facility] Daily Activity Putting on and taking off regular lower body clothing: A lot Bathing (including washing, rinsing, drying): A lot Putting on and taking off regular upper body clothing: A little Toileting, which includes using toilet, bedpan or urinal: A lot Taking care of personal grooming such as brushing teeth: A lot Eating Meals: None Daily Activity - Total Score: 15 Education Documentation Precautions, taught by Shereen Santoyo OT at 11/15/2024 4:13 PM. Learner: Patient Readiness: Acceptance Method: Explanation Response: Needs Reinforcement ADL Training, taught by Shereen Santoyo OT at 11/15/2024 4:13 PM. Learner: Patient Readiness: Acceptance Method: Explanation Response: Needs Reinforcement Education Comments No comments found. Goals: Encounter Problems Encounter Problems (Active) ADLs Patient with complete upper body dressing with independent level of assistance donning and doffing all UE clothes with no adaptive equipment while edge of bed. (Progressing) Start: 11/11/24 Expected End: 12/02/24 Patient with complete lower body dressing with stand by assist level of assistance donning and doffing all LE clothes with PRN adaptive equipment while edge of bed. (Progressing) Start: 11/11/24 Expected End: 12/02/24 Patient will complete daily grooming tasks brushing teeth and washing face/hair with independent level of assistance while edge of bed and if progressing, standing at sink. (Progressing) Start: 11/11/24 Expected End: 12/02/24 Patient will perform UB independent post set up and LB bathing with min assist and long-handled sponge. Start: 11/15/24 Expected End: 12/02/24 MOBILITY Patient will perform Functional mobility min Household distances/Community Distances with minimal assist level of assistance and least restrictive device in order to improve safety and functional mobility. (Progressing) Start: 11/11/24 Expected End: 12/02/24 TRANSFERS Patient will perform bed mobility minimal assist level of assistance and bed rails in order to improve safety and independence with mobility (Progressing) Start: 11/11/24 Expected End: 12/02/24 Patient will complete sit to stand transfer with minimal assist level of assistance and least restrictive device in order to improve safety and prepare for out of bed mobility. (Progressing) Start: 11/11/24 Expected End: 12/02/24 11/15/24 at 4:17 PM Shereen Santoyo OT [phone] Kevan La is a 49 y.o. male on day 5 of admission presenting with No Principal Problem: There is no principal problem currently on the Problem List. Please update the Problem List and refresh.. Subjective No acute events overnight. Patient continuing to complain of pain. Objective Physical Exam Vitals reviewed. Constitutional: General: He is not in acute distress. Cardiovascular: Rate and Rhythm: Normal rate and regular rhythm. Heart sounds: Normal heart sounds. No murmur heard. Pulmonary: Effort: No respiratory distress. Breath sounds: Normal breath sounds. No wheezing. Abdominal: General: There is no distension. Palpations: Abdomen is soft. Tenderness: There is no abdominal tenderness. Musculoskeletal: General: Tenderness and signs of injury present. Comments: Left buttock and left thigh wounds with wound pack on left buttock Neurological: General: No focal deficit present. Mental Status: He is alert and oriented to person, place, and time. Mental status is at baseline. Last Recorded Vitals Blood pressure 93/53, pulse 82, temperature 36.9 C (98.4 F), resp. rate 16, height 2.006 m (6' 6.98"), weight 104 kg (230 lb), SpO2 96%. Intake/Output last 3 Shifts: I/O last 3 completed shifts: In: 2409.8 (23.1 mL/kg) [I.V.:2243.3 (21.5 mL/kg); IV Piggyback:166.5] Out: 3675 (35.2 mL/kg) [Urine:3675 (1 mL/kg/hr)] Weight: 104.3 kg Relevant Results Results from last 7 days Lab Units 11/15/24 0535 11/14/24 1042 11/13/24 1723 11/13/24 1535 11/13/24 1512 11/13/24 0545 POCT GLUCOSE mg/dL -- -- -- -- 96 -- GLUCOSE mg/dL 116* 97 117* 83 -- 106* Scheduled medications acetaminophen, 975 mg, oral, TID amoxicillin-pot clavulanate, 1 tablet, oral, q12h BERNADETTE chlorhexidine, , Topical, BID clindamycin, , Topical, BID enoxaparin, 40 mg, subcutaneous, q24h [START ON 11/16/2024] folic acid, 1 mg, oral, Daily HYDROmorphone, 0.2 mg, intravenous, Once melatonin, 3 mg, oral, Nightly oral hydration, 250 mL, oral, Once polyethylene glycol, 17 g, oral, BID sennosides-docusate sodium, 2 tablet, oral, BID varenicline tartrate, 1 mg, oral, BID Continuous medications sodium chloride 0.9%, 200 mL/hr, Last Rate: 200 mL/hr (11/14/242011) PRN medications PRN medications: HYDROmorphone, naloxone, ondansetron, oxyCODONE, oxyCODONE Results for orders placed or performed during the hospital encounter of 11/10/24 (from the past 24 hours) Calcium, 24 Hour Urine Result Value Ref Range Collection period 24 hrs Urine Volume 3,100 mL Calcium, Urine 12.4 mg/dL Calcium, 24 Hour Urine 384 (H) 100 - 300 mg/24H Creatinine, Urine 52.3 20.0 - 370.0 mg/dL Creatinine, 24 Hour Urine 1.62 0.87 - 2.41 g/24 h Hepatic Function Panel Result Value Ref Range Albumin 3.0 (L) 3.4 - 5.0 g/dL Bilirubin, Total 0.2 0.0 - 1.2 mg/dL Bilirubin, Direct 0.0 0.0 - 0.3 mg/dL Alkaline Phosphatase 80 33 - 120 U/L ALT 21 10 - 52 U/L AST 18 9 - 39 U/L Total Protein 6.3 (L) 6.4 - 8.2 g/dL Renal Function Panel Result Value Ref Range Glucose 116 (H) 74 - 99 mg/dL Sodium 138 136 - 145 mmol/L Potassium 3.7 3.5 - 5.3 mmol/L Chloride 105 98 - 107 mmol/L Bicarbonate 24 21 - 32 mmol/L Anion Gap 13 10 - 20 mmol/L Urea Nitrogen 10 6 - 23 mg/dL Creatinine 1.40 (H) 0.50 - 1.30 mg/dL eGFR 61 >60 mL/min/1.73m*2 Calcium 9.4 8.6 - 10.6 mg/dL Phosphorus 2.5 2.5 - 4.9 mg/dL Albumin 2.9 (L) 3.4 - 5.0 g/dL Magnesium Result Value Ref Range Magnesium 1.93 1.60 - 2.40 mg/dL CBC and Auto Differential Result Value Ref Range WBC 10.7 4.4 - 11.3 x10*3/uL nRBC 0.0 0.0 - 0.0 /100 WBCs RBC 3.04 (L) 4.50 - 5.90 x10*6/uL Hemoglobin 8.1 (L) 13.5 - 17.5 g/dL Hematocrit 24.9 (L) 41.0 - 52.0 % MCV 82 80 - 100 fL MCH 26.6 26.0 - 34.0 pg MCHC 32.5 32.0 - 36.0 g/dL RDW 16.4 (H) 11.5 - 14.5 % Platelets 531 (H) 150 - 450 x10*3/uL Neutrophils % 74.5 40.0 - 80.0 % Immature Granulocytes %, Automated 0.4 0.0 - 0.9 % Lymphocytes % 12.2 13.0 - 44.0 % Monocytes % 9.7 2.0 - 10.0 % Eosinophils % 2.6 0.0 - 6.0 % Basophils % 0.6 0.0 - 2.0 % Neutrophils Absolute 7.95 (H) 1.20 - 7.70 x10*3/uL Immature Granulocytes Absolute, Automated 0.04 0.00 - 0.70 x10*3/uL Lymphocytes Absolute 1.30 1.20 - 4.80 x10*3/uL Monocytes Absolute 1.04 (H) 0.10 - 1.00 x10*3/uL Eosinophils Absolute 0.28 0.00 - 0.70 x10*3/uL Basophils Absolute 0.06 0.00 - 0.10 x10*3/uL Assessment/Plan Kevan La is a 49 year old male with a PMH of refractory HS and gluteal abscess who is admitted to the hospital for gluteal wound abscess and HS. Endocrinology consulted for hypercalcemia. #Mild to moderate hypercalcemia of malignancy - Non PTH mediated as PTH <6.3 - PTHrP elevated at 12, therefore likely malignancy induced hypercalcemia - Calcium 9.4 today and corrected calcium 10.3, now WNL - Can stop maintenance IVF - S/p pamidronate 90 mg IV on 11/12, patient may need an additional dose 1-2 weeks after initial administration if indicate - Continue to trend daily RFPs - Endocrinology will continue to monitor - Reached out to derm and derm path to see if the biopsy could potentially be stained with PTHrP, however can't do that in house. Plan discussed with attending physician Dr. Marshall. Nataly Colunga MD PGY-2 IM resident Cosigned by Cecile Marshall MD at 11/17/2024 3:02 PM EST Associated attestation - Cecile Marshall MD - 11/17/2024 3:02 PM EST I saw and evaluated the patient. I personally obtained the gomez and critical portions of the history and physical exam or was physically present for gomez and critical portions performed by the resident/fellow. I reviewed the resident/fellow's documentation and discussed the patient with the resident/fellow. I agree with the resident/fellow's medical decision making as documented in the note. Physical Therapy Therapy Communication Note Patient Name: Kevan La Department: [place] [id number] Room: [address] [place] [address] Today's Date: 11/15/2024 Discipline: Physical Therapy PT Missed Visit: Yes Missed Visit Reason: Missed Visit Reason: Patient refused (pt stating he did not want to participate at this time but rest. 2nd attempt.) Missed Time: Attempt Comment: Cosigned by Doris Guzman PT at 11/15/2024 1:41 PM EST Kevan La is a 49 y.o. male on day 5 of admission presenting with No Principal Problem: There is no principal problem currently on the Problem List. Please update the Problem List and refresh.. Subjective Pt is seen by the bedside. Pt reports a lot of pain overnight and this AM. No other complains. Pt denies CP, SOB, lightheadedness, dizziness, abdominal pain, N/V. Objective 24 Hour Vitals Temp: [36.4 C (97.5 F)-36.9 C (98.4 F)] 36.9 C (98.4 F) Heart Rate: [71-82] 82 Resp: [16-18] 16 BP: (92-98)/(48-54) 93/53 Temp (24hrs), Av.7 C (98 F), Min:36.4 C (97.5 F), Max:36.9 C (98.4 F) 24 hour Intake/Output Intake/Output Summary (Last 24 hours) at 11/15/2024 1214 Last data filed at 11/15/2024 0934 Gross per 24 hour Intake 1000 ml Output 2075 ml Net -1075 ml Exam: General: Resting in bed on his rigth side, appears in mild discomfort, but no acute distress. Well developed. Appears stated age. HEENT: Normocephalic and atraumatic. EOMI, sclera non-icteric Cardiovascular: RRR, no r/m/g Pulmonary: Lungs clear to auscultation bilaterally. No wheezes/ rhonchi/ rales GI: firm, but not rigid, non-tender : No Wallace cath Extremities: No LE edema. R hip skin is intact, no lesions, no bruising, non tender with heel squeeze. Skin: Left buttock and left thigh wounds with wound pack on left buttock Neurologic: CN II-XII grossly intact. Moving extremities spontaneously Psych: Pleasant. Appropriate mood and affect Labs CBC Results from last 72 hours Lab Units 11/14/24 1042 11/13/24 1654 11/13/24 1535 WBC AUTO x10*3/uL 9.3 9.4 5.6 HEMOGLOBIN g/dL 7.7* 8.2* 4.9* HEMATOCRIT % 24.1* 25.5* 16.0* PLATELETS AUTO x10*3/uL 507* 570* 306 BMP Results from last 72 hours Lab Units 11/15/24 0535 11/14/24 1042 11/13/24 1723 11/13/24 1535 11/13/24 0545 SODIUM mmol/L 138 138 138 143 139 POTASSIUM mmol/L 3.7 3.8 3.6 2.7* 3.7 CHLORIDE mmol/L 105 107 108* 120* 106 BUN mg/dL 10 8 9 6 9 CREATININE mg/dL 1.40* 1.38* 1.40* 0.93 1.41* MAGNESIUM mg/dL 1.93 1.78 -- 1.23* 1.86 PHOSPHORUS mg/dL 2.5 -- -- 1.6* 3.0 Medications Scheduled Medications acetaminophen, 975 mg, oral, TID amoxicillin-pot clavulanate, 1 tablet, oral, q12h BERNADETTE chlorhexidine, , Topical, BID clindamycin, , Topical, BID enoxaparin, 40 mg, subcutaneous, q24h folic acid, 0.4 mg, oral, Daily HYDROmorphone, 0.2 mg, intravenous, Once melatonin, 3 mg, oral, Nightly oral hydration, 250 mL, oral, Once polyethylene glycol, 17 g, oral, BID potassium chloride CR, 20 mEq, oral, Once sennosides-docusate sodium, 2 tablet, oral, BID varenicline tartrate, 1 mg, oral, BID Continuous Medications sodium chloride 0.9%, 200 mL/hr, Last Rate: 200 mL/hr (11/14/242011) PRN Medications PRN medications: HYDROmorphone, naloxone, ondansetron, oxyCODONE, oxyCODONE Assessment/Plan Kevan La is a 49 y.o. male with refractory hidradenitis supprativa (HS) not responding to povorcitinib (RCT candidate), apremilast, isotretinoin, adalimumab, infliximab, moxifloxacin/metronidazole, minocyclin, clindamycin, rifampin, augmentin and doxycycline, transferred from [facility] regarding 14cm gluteal fluid collection. He was recently admitted for the same L. gluteal abscess which was 9.2 x 5.7 x 13.2cm in size s/p I&D. Pending speciation of culture he was discharged with a course of Unasyn per ID however returns due to gluteal pain and questionable sepsis, CT Pelvis at OSH with large ulcerative wound at the left buttock with an adjacent 14.9 cm enhancing mass involving the left gluteal muscles and overlying subcutaneous tissue, larger than CT in 08/2024, which may represent failure of current antibiotic regimen. ACS surgery engaged, recommended no surgical interventions. Endocrinology engaged for hypercalcemia. S/p Bx of peripheral nodule and tissue Cx on 11/12/24 c/f SCC (primary vs metastatic lesion). 11/15 Updates: - continue Augmentin, should cover Proteus, per ID - poss. Several bx with Derm today - follow-up Heme, Endo recs - follow-up free chains - stopped IVmF #Gluteal wound s/p abscess I&D 10/13 #Refractory hidradenitis suppurativa #Deep tissue SSTI #Leukocytosis ::Patient with history of refractory HS having failed multiple modalities, now c/b gluteal abscess which he was admitted for 3 weeks ago s/p I&D, BCx with slackia exigua s/p Unasyn complete 10/28/2024 presenting to OSH with initial c/f sepsis found to have worsening gluteal abscess ::CT 11/08/2024: Large ulcerative wound at the left buttock with an adjacent 14.9 cm enhancing mass involving the left gluteal muscles and overlying subcutaneous tissue, larger than CT in 08/2024 ::BP 90/50 on admit here but per review of prior admission, pressures typically land in the mid 90s systolic ::WBC 13.9 on presentation, 11 this AM, improving :: Last dose of Povorcitanib 10/10 :: Blood Cx from 11/10 NGTD :: Tissue Cx from 11/12 growing rare proteus mirabilis :: s/p tissue peripheral lesion bx 11/12 with Dermatology: SCC :: V/Z (11/08 - 11/14) :: PO Augmentin 875 BID x 3 weeks (11/14-present) Plan: - Continue Topical Clindamycin BID, Hibiclens BID - Holding home PO iron iso possible infection - Pain: Tylenol TID, Oxy 5 Q4H prn mod pain and Oxy 10 Q6h prn severe pain, dilaudid 0.5 mg Q 3 hrs for breakthrough pain - Dermatology recs appreciated: - Continue hibiclens wash BID, topical clindamycin BID, and wound care - initiated orders for approval from insurance for Bimzelx (IL17A/F inhibitor) - Quant TB pending - HIV, Hep B surface antigen/antibody, Hep B core antibody, and Hep C testing-- all negative #Hypotension :: appears long standing on chart review, pt confirmed hx of low BPs :: normal TSH - CTM #Hypercalcemia, mild ::presented with CoCa 12.5; iCa 1.69; PTH <6.3 ::25-OH vit D 79; 1.25-OH vit D 35.9 ::PTHrP elevated :: SPEP with M protein spike; :: UPEP wnl :: elevated IgA :: urine Ca and 1.25-OH vit D levels pending ::TSH wnl :: s/p pamidronate 90 mg IV 11/12/24 - Heme engaged, will follow up recs #Nicotine Use - Continue home Chantix #Subacute PARUL ::Cr ~1.6 on last admission, Cr 1.44 on presentation to ::On prior admission was evaluated for this with normal UA, CT with no hydronephrosis, felt to be 2/2 NSAID use for HS ::A1c and UA normal on admission at [facility] ::FeUrea 48.2% (>35=> suggestive of intrinsic renal disease) - Avoid nephrotoxic drug, hypotension, sepsis, dehydration - Continuing to encourage oral hydration and treat hypercalcemia #Bladder Calculi ::Incidentally noted on CT Pelvis from OSH, asymptomatic, max diam is 1.5 cm #Anemia :: Hgb 10.4 at [facility], Hgb 8.8 on admission, Hgb 7.7 today :: 10/10/24: decr TIBC 218 and Fe 24; normal ferritin 259 :: Holding home PO iron iso possible infection - no evidence of bleeding, pt is HD stable (BPs are soft at baseline per pt), no tachycardia, no neurological changes - maintaining active type and screen; pt consented for blood transfusion on 11/13/24 - B9 decreased at 4.6, B12 328 - continue folate supplementation Isa Turner MD college president, PGY-1 Cosigned by Claudio Plunkett MD at 11/15/2024 2:45 PM EST Associated attestation - Claudio Plunkett MD - 11/15/2024 2:45 PM EST I saw and evaluated the patient. I personally obtained the gomez and critical portions of the history and physical exam or was physically present for gmoez and critical portions performed by the resident/fellow. I reviewed the resident/fellow's documentation and discussed the patient with the resident/fellow. I agree with the resident/fellow's medical decision making as documented in the note with the exception/addition of the following: Still issues with pain control for . He is aware the biopsy shows cancer . Dermatology will meet with him today and discuss further , but they are considering getting additional biopsies . We may need to invovle surgical oncology . Kevan La is a 49 y.o. male on day 5 of admission presenting with No Principal Problem: There is no principal problem currently on the Problem List. Please update the Problem List and refresh.. Subjective Patient resting in bed, states he still has significant break through pain from his left buttocks and thigh. We discussed the biopsy results from yesterday at bedside, patient expresses he hopes this diagnosis will help his primary team address his persistent pain. Objective Physical Exam GEN: uncomfortable appearing NEURO: moving all extremities EYES: conjunctiva and eyelids normal. No conjunctival injection or erosions appreciated ENT: - Lips: normal - Teeth/gums: normal - Oropharynx: normal tongue and mucosa NECK: normal and symmetric. CV: no varicosities, warmth or tenderness of extremities. GI: Flat abdomen. Non-tender. No hepatosplenomegaly. LYMPH: no LAD EXTREMITIES: no distal digital clubbing, cyanosis, petechiae SKIN: A full body skin exam including scalp, face, eyes, ears, neck, trunk, bilateral upper & lower extremities, toenails and fingernails were examined with the following findings: - On the bilateral buttocks and gluteal cleft are many comedones, multiple indurated sinus tracts, and subcutaneous nodules. There is a large ulcerative wound on the left buttocks (>10cm wide) with firm, indurated borders and actively draining yellow-white exudate. There is a new exophytic smooth nodule with draining sinus holes on the left thigh that is extremely tender with palpation and also firm, this nodule is new in comparison to clinical images from 1 month ago (biopsy proven SCC) Last Recorded Vitals Blood pressure 93/53, pulse 82, temperature 36.9 C (98.4 F), resp. rate 16, height 2.006 m (6' 6.98"), weight 104 kg (230 lb), SpO2 96%. Relevant Results Results for orders placed or performed during the hospital encounter of 11/10/24 (from the past 24 hours) Calcium, 24 Hour Urine Result Value Ref Range Collection period 24 hrs Urine Volume 3,100 mL Calcium, Urine 12.4 mg/dL Calcium, 24 Hour Urine 384 (H) 100 - 300 mg/24H Creatinine, Urine 52.3 20.0 - 370.0 mg/dL Creatinine, 24 Hour Urine 1.62 0.87 - 2.41 g/24 h Hepatic Function Panel Result Value Ref Range Albumin 3.0 (L) 3.4 - 5.0 g/dL Bilirubin, Total 0.2 0.0 - 1.2 mg/dL Bilirubin, Direct 0.0 0.0 - 0.3 mg/dL Alkaline Phosphatase 80 33 - 120 U/L ALT 21 10 - 52 U/L AST 18 9 - 39 U/L Total Protein 6.3 (L) 6.4 - 8.2 g/dL Renal Function Panel Result Value Ref Range Glucose 116 (H) 74 - 99 mg/dL Sodium 138 136 - 145 mmol/L Potassium 3.7 3.5 - 5.3 mmol/L Chloride 105 98 - 107 mmol/L Bicarbonate 24 21 - 32 mmol/L Anion Gap 13 10 - 20 mmol/L Urea Nitrogen 10 6 - 23 mg/dL Creatinine 1.40 (H) 0.50 - 1.30 mg/dL eGFR 61 >60 mL/min/1.73m*2 Calcium 9.4 8.6 - 10.6 mg/dL Phosphorus 2.5 2.5 - 4.9 mg/dL Albumin 2.9 (L) 3.4 - 5.0 g/dL Magnesium Result Value Ref Range Magnesium 1.93 1.60 - 2.40 mg/dL No results found. Scheduled medications acetaminophen, 975 mg, oral, TID amoxicillin-pot clavulanate, 1 tablet, oral, q12h BERNADETTE chlorhexidine, , Topical, BID clindamycin, , Topical, BID [Held by provider] enoxaparin, 40 mg, subcutaneous, q24h folic acid, 0.4 mg, oral, Daily HYDROmorphone, 0.2 mg, intravenous, Once melatonin, 3 mg, oral, Nightly oral hydration, 250 mL, oral, Once polyethylene glycol, 17 g, oral, BID sennosides-docusate sodium, 2 tablet, oral, BID varenicline tartrate, 1 mg, oral, BID Continuous medications sodium chloride 0.9%, 200 mL/hr, Last Rate: 200 mL/hr (11/14/242011) PRN medications PRN medications: HYDROmorphone, naloxone, ondansetron, oxyCODONE, oxyCODONE Assessment/Plan Kevan La is a 49 y.o. 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 Dermatology was consulted for HS. Differential diagnoses: HS with transformation to squamous cell carcinoma Impression: Patient has had longstanding HS of the buttocks for >20 years. He was originally admitted for an HS flare due to increased pain and drainage from his wounds on the left buttocks. Previously he has failed many previous treatments including augmentin, doxycycline, minocycline, isotretinoin, clindamycin/rifampin, Humira, Remicade, staph decolonization for mupirocin, moxifloxacin/metronidazole, apremilast, and recently a clinical trial medication. Patient was biopsied by our service on 11/12/24 due to concern for rapid disease progression to rule out malignancy. The biopsy of the left thigh nodule was consistent with squamous cell carcinoma, we favor this is a metastatic cutaneous lesion as there is no epidermal attachment seen in this biopsy. The biopsy from the border of the ulcerated wound showed nonspecific inflammation, we still have high suspicion this ulcerative wound represents the primary squamous cell carcinoma and will obtain biopsies from this lesion to investigate this ulcer as management would change pending biopsy results in terms of surgical and medical/radiation treatments. Endocrinology team raises concern for PTHrP production from the malignancy. On review of the literature there are a few case reports of severe longstanding HS with subsequent development of SCC and hypercalcemia with PTHrP production from the tumor, albeit higher PTHrP levels than in the case of our patient. These patients had a poor prognosis and also had squamous cell carcinoma metastases identified on imaging to the lung and lymph nodes, thus we suggest further imaging work up for this patient such as CT chest. We have discussed this case with the dermatopathologist and recommend applying PTHrP stains to the biopsies for evaluation. Additionally patient is experiencing extreme pain and should be seen by supportive onc/palliative medicine for pain recommendations. Patient will be presented at cutaneous malignancy tumor board conference on Monday as this is a serious skin cancer and patient require input from multiple disciplines (radiation oncology, oncology etc.) for treatment options. 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 - Repeat biopsy today of the ulcerative wound on the left buttocks to assess for primary squamous cell carcinoma - Recommend CT Chest and other imaging work up as indicated for possible metastases - Please consult supportive onc/palliative medicine for his increasing cancer related pain - Continue hibiclens wash BID, topical clindamycin BID, and wound care - Pending cutaneous malignancy tumor board conference on Monday - Pending PTHrP stain with dermatopathology of the biopsies The patient was seen and discussed with attending physician Dr. Mesa. The assessment and plan was communicated to the care team. Thank you for the consultation and for the opportunity to contribute to the care of this patient. Brigitte Coy MD PGY2, Dermatology I saw and evaluated the patient. I personally obtained the gomez and critical portions of the history and physical exam or was physically present for gomez and critical portions performed by the resident. I reviewed the resident's documentation and discussed the patient with the resident. I agree with the resident's medical decision making as documented in the note. Lauri Mesa MD Physical Therapy Therapy Communication Note Patient Name: Kevan La Department: [facility] Date: 11/14/2024 Discipline: Physical Therapy PT Missed Visit: Yes Missed Visit Reason: Missed Visit Reason: (@1612 second attempt to see patient for followup, wanted to initially wait for pain meds on first attempt, now s/p pain meds though still feels he is in too much pain to mobilize.) Missed Time: Attempt 11/14/24 at 5:16 PM - Doris Guzman PT Kevan La is a 49 y.o. male on day 4 of admission presenting with No Principal Problem: There is no principal problem currently on the Problem List. Please update the Problem List and refresh.. Subjective Pt is seen by the bedside. Pt is in mild pain at the wound site. No other complains. Pt denies CP, SOB, lightheadedness, dizziness, abdominal pain, N/V. Objective 24 Hour Vitals Temp: [36.2 C (97.2 F)-36.5 C (97.7 F)] 36.5 C (97.7 F) Heart Rate: [65-84] 65 Resp: [16] 16 BP: (79-85)/(40-47) 79/41 Temp (24hrs), Av.3 C (97.4 F), Min:36.2 C (97.2 F), Max:36.5 C (97.7 F) 24 hour Intake/Output Intake/Output Summary (Last 24 hours) at 11/14/2024 1653 Last data filed at 11/14/2024 0841 Gross per 24 hour Intake 1409.83 ml Output 2000 ml Net -590.17 ml Exam: General: Resting in bed on his rigth side, appears in mild discomfort, but no acute distress. Well developed. Appears stated age. HEENT: Normocephalic and atraumatic. EOMI, sclera non-icteric Cardiovascular: RRR, no r/m/g Pulmonary: Lungs clear to auscultation bilaterally. No wheezes/ rhonchi/ rales GI: firm, but not rigid, non-tender : No Wallace cath Extremities: No LE edema. R hip skin is intact, no lesions, no bruising, non tender with heel squeeze. Skin: Left buttock and left thigh wounds with wound pack on left buttock Neurologic: CN II-XII grossly intact. Moving extremities spontaneously Psych: Pleasant. Appropriate mood and affect Labs CBC Results from last 72 hours Lab Units 11/14/24 1042 11/13/24 1654 11/13/24 1535 WBC AUTO x10*3/uL 9.3 9.4 5.6 HEMOGLOBIN g/dL 7.7* 8.2* 4.9* HEMATOCRIT % 24.1* 25.5* 16.0* PLATELETS AUTO x10*3/uL 507* 570* 306 BMP Results from last 72 hours Lab Units 11/14/24 1042 11/13/24 1723 11/13/24 1535 11/13/24 0545 SODIUM mmol/L 138 138 143 139 POTASSIUM mmol/L 3.8 3.6 2.7* 3.7 CHLORIDE mmol/L 107 108* 120* 106 BUN mg/dL 8 9 6 9 CREATININE mg/dL 1.38* 1.40* 0.93 1.41* MAGNESIUM mg/dL 1.78 -- 1.23* 1.86 PHOSPHORUS mg/dL -- -- 1.6* 3.0 Medications Scheduled Medications acetaminophen, 975 mg, oral, TID amoxicillin-pot clavulanate, 1 tablet, oral, q12h BERNADETTE chlorhexidine, , Topical, BID clindamycin, , Topical, BID [Held by provider] enoxaparin, 40 mg, subcutaneous, q24h melatonin, 3 mg, oral, Nightly oral hydration, 250 mL, oral, Once polyethylene glycol, 17 g, oral, BID sennosides-docusate sodium, 2 tablet, oral, BID varenicline tartrate, 1 mg, oral, BID Continuous Medications PRN Medications PRN medications: HYDROmorphone, naloxone, ondansetron, oxyCODONE, oxyCODONE Assessment/Plan Kevan La is a 49 y.o. male with refractory hidradenitis supprativa (HS) not responding to povorcitinib (RCT candidate), apremilast, isotretinoin, adalimumab, infliximab, moxifloxacin/metronidazole, minocyclin, clindamycin, rifampin, augmentin and doxycycline, transferred from [facility] regarding 14cm gluteal fluid collection. He was recently admitted for the same L. gluteal abscess which was 9.2 x 5.7 x 13.2cm in size s/p I&D. Pending speciation of culture he was discharged with a course of Unasyn per ID however returns due to gluteal pain and questionable sepsis, CT Pelvis at OSH with large ulcerative wound at the left buttock with an adjacent 14.9 cm enhancing mass involving the left gluteal muscles and overlying subcutaneous tissue, larger than CT in 08/2024, which may represent failure of current antibiotic regimen. On Vanc and Zosyn. ACS surgery engaged, recommended no surgical interventions. Endocrinology engaged for hypercalcemia. Dermatology is following, pt s/p Bx and tissue Cx on 11/12/24. 11/14 Updates: - Lesion bx c/f SCC, likely will need bx of wound - ID recommended discontinue Vanc/Zosyn, start PO Augmentin - tissue Cx growing proteus mirabilis, notified ID - PTHrP elevated - consulted heme for elevated M spike - ordered free chains, B9 and B12, started folate supplementation #Gluteal wound s/p abscess I&D 10/13 #Refractory hidradenitis suppurativa #Deep tissue SSTI #Leukocytosis ::Patient with history of refractory HS having failed multiple modalities, now c/b gluteal abscess which he was admitted for 3 weeks ago s/p I&D, BCx with marta puentesa s/p Unasyn complete 10/28/2024 presenting to OSH with initial c/f sepsis found to have worsening gluteal abscess ::CT 11/08/2024: Large ulcerative wound at the left buttock with an adjacent 14.9 cm enhancing mass involving the left gluteal muscles and overlying subcutaneous tissue, larger than CT in 08/2024 ::BP 90/50 on admit here but per review of prior admission, pressures typically land in the mid 90s systolic ::WBC 13.9 on presentation, 11 this AM, improving ::Lactate 11/08: 1.2; 1.3 on 11/10 :: [facility] Blood Cx 11/08 NGTD; Wound Cx were ordered, but not collected :: Last dose of Povorcitanib 10/10 :: Blood Cx from 11/10 NGTD :: Tissue Cx from 11/12 growing rare proteus mirabilis :: s/p tissue bx 11/12 with Dermatology Plan: - continue to follow BCx from [facility] -> micro lab -> blood Cx - Continue Topical Clindamycin BID, Hibiclens BID - Holding home PO iron iso possible infection - stopped V/Z (11/08 - 11/14); started PO Augmentin 875 BID x 3 weeks. - Pain: Tylenol TID, Oxy 5 Q4H prn mod pain and Oxy 10 Q6h prn severe pain, dilaudid 0.4 mg Q 4 hrs for breakthrough pain - Dermatology recs appreciated: - Continue hibiclens wash BID, topical clindamycin BID, and wound care - Patient will need diligent wound care once discharged. Recommend initiating process of arranging home wound care. - initiated orders for approval from insurance for Bimzelx (IL17A/F inhibitor) - Quant TB pending - HIV, Hep B surface antigen/antibody, Hep B core antibody, and Hep C testing-- all negative #Hypotension :: appears long standing on chart review, pt confirmed hx of low BPs :: normal TSH @ [facility] #Hypercalcemia, mild ::presented with CoCa 12.5; iCa 1.69; PTH <6.3 ::25-OH vit D 79; 1.25-OH vit D 35.9 ::PTHrP elevated :: SPEP with M protein spike; :: UPEP wnl :: urine Ca and 1.25-OH vit D levels pending ::TSH :: s/p pamidronate 90 mg IV 11/12/ - consulted Heme - free light chains ordered - continue 200 ml/hr NS #Nicotine Use - Continue home Chantix #Subacute PARUL ::Cr ~1.6 on last admission, Cr 1.44 on presentation to ::On prior admission was evaluated for this with normal UA, CT with no hydronephrosis, felt to be 2/2 NSAID use for HS ::A1c and UA normal on admission at [facility] ::FeUrea 48.2% (>35=> suggestive of intrinsic renal disease) - Avoid nephrotoxic drug, hypotension, sepsis, dehydration - Continuing to encourage oral hydration and treat hypercalcemia #Bladder Calculi ::Incidentally noted on CT Pelvis from OSH, asymptomatic, max diam is 1.5 cm #Anemia :: [facility] Hgb 8.8 on admission, Hgb 7.7 today :: 10/10/24: decr TIBC 218 and Fe 24; normal ferritin 259 :: Holding home PO iron iso possible infection - no evidence of bleeding, pt is HD stable (BPs are soft at baseline per pt), no tachycardia, no neurological changes - maintaining active type and screen; pt consented for blood transfusion on 11/13/24 - B9 and B12 levels ordered Isa Turner MD college president, PGY-1 Cosigned by Claudio Plunkett MD at 11/15/2024 12:11 PM EST Associated attestation - Claudio Plunkett MD - 11/15/2024 12:11 PM EST I saw and evaluated the patient. I personally obtained the gomez and critical portions of the history and physical exam or was physically present for gomez and critical portions performed by the resident/fellow. I reviewed the resident/fellow's documentation and discussed the patient with the resident/fellow. I agree with the resident/fellow's medical decision making as documented in the note with the exception/addition of the following: 's hypercalcemia is likely malignancy related . Transitional Care Coordination Progress Note: Patient discussed during interdisciplinary rounds. Team members present: MIGUEL NIELSEN Plan per Medical/Surgical team: Gluteal abscess Payor: Vincentcristian Discharge disposition: [facility] Potential Barriers: medical ADOD: 2-3 days Per MD, pending final culture results. Will continue to monitor for discharge planning needs. Updated notes sent to facility. Will continue to monitor for discharge planning needs. Julisa GARZA, salt maker Coordinator (T[facility]) [phone] Kevan La is a 49 y.o. male on day 4 of admission presenting with No Principal Problem: There is no principal problem currently on the Problem List. Please update the Problem List and refresh.. Subjective Yesterday afternoon, the patient had an episode of tremors. Vitals, EKG, blood sugar were stable at that time, but blood work was concerning for hypokalemia at 2.7 and Hgb of 4.9. Due to concern of inaccurate labs, repeat blood work obtained was otherwise unremarkable, and the tremors resolved afterwards. Patient resting comfortably this AM with no complaints except for some pain. Objective Physical Exam Vitals reviewed. Constitutional: General: He is not in acute distress. Cardiovascular: Rate and Rhythm: Normal rate and regular rhythm. Heart sounds: Normal heart sounds. No murmur heard. Pulmonary: Effort: No respiratory distress. Breath sounds: Normal breath sounds. No wheezing. Abdominal: General: There is no distension. Palpations: Abdomen is soft. Tenderness: There is no abdominal tenderness. Musculoskeletal: General: Tenderness and signs of injury present. Comments: Left buttock and left thigh wounds with wound pack on left buttock Neurological: General: No focal deficit present. Mental Status: He is alert and oriented to person, place, and time. Mental status is at baseline. Last Recorded Vitals Blood pressure (!) 79/41, pulse 65, temperature 36.5 C (97.7 F), temperature source Skin, resp. rate 16, height 2.006 m (6' 6.98"), weight 104 kg (230 lb), SpO2 95%. Intake/Output last 3 Shifts: I/O last 3 completed shifts: In: 3706.5 (35.5 mL/kg) [I.V.:2840 (27.2 mL/kg); IV Piggyback:866.5] Out: 3625 (34.7 mL/kg) [Urine:3625 (1 mL/kg/hr)] Weight: 104.3 kg Relevant Results Results from last 7 days Lab Units 11/13/24 1723 11/13/24 1535 11/13/24 1512 11/13/24 0545 11/12/24 0639 11/11/24 0930 POCT GLUCOSE mg/dL -- -- 96 -- -- -- GLUCOSE mg/dL 117* 83 -- 106* 93 101* Scheduled medications acetaminophen, 975 mg, oral, TID amoxicillin-pot clavulanate, 1 tablet, oral, q12h BERNADETTE chlorhexidine, , Topical, BID clindamycin, , Topical, BID [Held by provider] enoxaparin, 40 mg, subcutaneous, q24h melatonin, 3 mg, oral, Nightly oral hydration, 250 mL, oral, Once polyethylene glycol, 17 g, oral, BID sennosides-docusate sodium, 2 tablet, oral, BID varenicline tartrate, 1 mg, oral, BID Continuous medications sodium chloride 0.9%, 200 mL/hr, Last Rate: 200 mL/hr (11/14/24 0704) PRN medications PRN medications: HYDROmorphone, naloxone, ondansetron, oxyCODONE, oxyCODONE Results for orders placed or performed during the hospital encounter of 11/10/24 (from the past 24 hours) POCT GLUCOSE Result Value Ref Range POCT Glucose 96 74 - 99 mg/dL Renal Function Panel Result Value Ref Range Glucose 83 74 - 99 mg/dL Sodium 143 136 - 145 mmol/L Potassium 2.7 (LL) 3.5 - 5.3 mmol/L Chloride 120 (H) 98 - 107 mmol/L Bicarbonate 17 (L) 21 - 32 mmol/L Anion Gap 9 mmol/L Urea Nitrogen 6 6 - 23 mg/dL Creatinine 0.93 0.50 - 1.30 mg/dL eGFR >90 >60 mL/min/1.73m*2 Calcium 7.4 (L) 8.6 - 10.6 mg/dL Phosphorus 1.6 (L) 2.5 - 4.9 mg/dL Albumin 2.1 (L) 3.4 - 5.0 g/dL Calcium, ionized Result Value Ref Range POCT Calcium, Ionized 1.06 (L) 1.1 - 1.33 mmol/L CBC and Auto Differential Result Value Ref Range WBC 5.6 4.4 - 11.3 x10*3/uL nRBC 0.0 0.0 - 0.0 /100 WBCs RBC 1.73 (L) 4.50 - 5.90 x10*6/uL Hemoglobin 4.9 (LL) 13.5 - 17.5 g/dL Hematocrit 16.0 (L) 41.0 - 52.0 % MCV 93 80 - 100 fL MCH 28.3 26.0 - 34.0 pg MCHC 30.6 (L) 32.0 - 36.0 g/dL RDW 16.7 (H) 11.5 - 14.5 % Platelets 306 150 - 450 x10*3/uL Neutrophils % 78.9 40.0 - 80.0 % Immature Granulocytes %, Automated 0.2 0.0 - 0.9 % Lymphocytes % 7.1 13.0 - 44.0 % Monocytes % 9.8 2.0 - 10.0 % Eosinophils % 3.6 0.0 - 6.0 % Basophils % 0.4 0.0 - 2.0 % Neutrophils Absolute 4.44 1.20 - 7.70 x10*3/uL Immature Granulocytes Absolute, Automated 0.01 0.00 - 0.70 x10*3/uL Lymphocytes Absolute 0.40 (L) 1.20 - 4.80 x10*3/uL Monocytes Absolute 0.55 0.10 - 1.00 x10*3/uL Eosinophils Absolute 0.20 0.00 - 0.70 x10*3/uL Basophils Absolute 0.02 0.00 - 0.10 x10*3/uL Magnesium Result Value Ref Range Magnesium 1.23 (L) 1.60 - 2.40 mg/dL TSH with reflex to Free T4 if abnormal Result Value Ref Range Thyroid Stimulating Hormone 1.25 0.44 - 3.98 mIU/L Lactate Dehydrogenase Result Value Ref Range LDH 62 (L) 84 - 246 U/L Reticulocytes Result Value Ref Range Retic % 1.3 0.5 - 2.0 % Retic Absolute 0.023 0.022 - 0.118 x10*6/uL Reticulocyte Hemoglobin 24 (L) 28 - 38 pg Immature Retic fraction 15.5 <=16.0 % Type and screen Result Value Ref Range ABO TYPE A Rh TYPE POS ANTIBODY SCREEN NEG CBC Result Value Ref Range WBC 9.4 4.4 - 11.3 x10*3/uL nRBC 0.0 0.0 - 0.0 /100 WBCs RBC 2.95 (L) 4.50 - 5.90 x10*6/uL Hemoglobin 8.2 (L) 13.5 - 17.5 g/dL Hematocrit 25.5 (L) 41.0 - 52.0 % MCV 86 80 - 100 fL MCH 27.8 26.0 - 34.0 pg MCHC 32.2 32.0 - 36.0 g/dL RDW 16.4 (H) 11.5 - 14.5 % Platelets 570 (H) 150 - 450 x10*3/uL Lactate Result Value Ref Range Lactate 1.5 0.4 - 2.0 mmol/L Blood Gas Venous Full Panel Result Value Ref Range POCT pH, Venous 7.48 (H) 7.33 - 7.43 pH POCT pCO2, Venous 29 (L) 41 - 51 mm Hg POCT pO2, Venous 75 (H) 35 - 45 mm Hg POCT SO2, Venous 99 (H) 45 - 75 % POCT Oxy Hemoglobin, Venous 96.0 (H) 45.0 - 75.0 % POCT Hematocrit Calculated, Venous 16.0 (L) 41.0 - 52.0 % POCT Sodium, Venous 137 136 - 145 mmol/L POCT Potassium, Venous 3.8 3.5 - 5.3 mmol/L POCT Chloride, Venous 110 (H) 98 - 107 mmol/L POCT Ionized Calicum, Venous 1.43 (H) 1.10 - 1.33 mmol/L POCT Glucose, Venous 130 (H) 74 - 99 mg/dL POCT Lactate, Venous 1.5 0.4 - 2.0 mmol/L POCT Base Excess, Venous -1.8 -2.0 - 3.0 mmol/L POCT HCO3 Calculated, Venous 21.6 (L) 22.0 - 26.0 mmol/L POCT Hemoglobin, Venous 5.3 (LL) 13.5 - 17.5 g/dL POCT Anion Gap, Venous 9.0 (L) 10.0 - 25.0 mmol/L Patient Temperature 37.0 degrees Celsius FiO2 21 % Comprehensive metabolic panel Result Value Ref Range Glucose 117 (H) 74 - 99 mg/dL Sodium 138 136 - 145 mmol/L Potassium 3.6 3.5 - 5.3 mmol/L Chloride 108 (H) 98 - 107 mmol/L Bicarbonate 23 21 - 32 mmol/L Anion Gap 11 10 - 20 mmol/L Urea Nitrogen 9 6 - 23 mg/dL Creatinine 1.40 (H) 0.50 - 1.30 mg/dL eGFR 61 >60 mL/min/1.73m*2 Calcium 9.8 8.6 - 10.6 mg/dL Albumin 2.8 (L) 3.4 - 5.0 g/dL Alkaline Phosphatase 89 33 - 120 U/L Total Protein 5.9 (L) 6.4 - 8.2 g/dL AST 15 9 - 39 U/L Bilirubin, Total 0.3 0.0 - 1.2 mg/dL ALT 17 10 - 52 U/L Hepatic Function Panel Result Value Ref Range Albumin 2.8 (L) 3.4 - 5.0 g/dL Bilirubin, Total 0.3 0.0 - 1.2 mg/dL Bilirubin, Direct 0.1 0.0 - 0.3 mg/dL Alkaline Phosphatase 89 33 - 120 U/L ALT 17 10 - 52 U/L AST 15 9 - 39 U/L Total Protein 5.9 (L) 6.4 - 8.2 g/dL Assessment/Plan Kevan La is a 49 year old male with a PMH of refractory HS and gluteal abscess who is admitted to the hospital for gluteal wound abscess and HS. Endocrinology consulted for hypercalcemia. #Mild to moderate hypercalcemia - Non PTH mediated as PTH <6.3 - Most likely in the setting of immobility as patient reports that he's been bedbound since June, however biopsy results showed invasive squamous cell carcinoma, so there may be a component of malignancy induced hypercalcemia - Calcium 9.8 today and improved from 11.1 yesterday, corrected calcium 10.8 and improved from 12.1 yesterday - Continue NS @ 200 mL/hr - S/p pamidronate 90 mg IV on 11/12 - Continue to trend daily RFPs - Endocrinology will continue to monitor - Tomorrow if corrected calcium is within normal limits, can stop maintenance IVF Plan discussed with attending physician Dr. Marshall. Nataly Colunga MD PGY-2 IM resident Cosigned by Cecile Marshall MD at 11/16/2024 10:47 AM EST Associated attestation - Cecile Marshall MD - 11/16/2024 10:47 AM EST I saw and evaluated the patient. I personally obtained the gomez and critical portions of the history and physical exam or was physically present for gomez and critical portions performed by the resident/fellow. I reviewed the resident/fellow's documentation and discussed the patient with the resident/fellow. I agree with the resident/fellow's medical decision making as documented in the note. Vancomycin Dosing by Pharmacy- Cessation of Therapy Consult to pharmacy for vancomycin dosing has been discontinued by the prescriber, pharmacy will sign off at this time. Please call pharmacy if there are further questions or re-enter a consult if vancomycin is resumed. Hillary Hudson PharmD Kevan La is a 49 y.o. male on day 4 of admission presenting with No Principal Problem: There is no principal problem currently on the Problem List. Please update the Problem List and refresh.. Subjective Interval History: Patient had acute event yesterday afternoon where he was found to have tremors and was hypotensive and tachycardic. Per IM team, patient remained asymptomatic during and after event. Patient was comfortably asleep prior to examination this morning. Endorses increased pain today however states medications have helped him sleep. Denies fever, chills, nausea, emesis, fatigue, dizziness, dysuria. Review of Systems Objective Range of Vitals (last 24 hours) Heart Rate: [65-97] Temp: [36.2 C (97.2 F)-37.4 C (99.3 F)] Resp: [16-18] BP: (79-123)/(40-65) SpO2: [94 %-98 %] Daily Weight 11/11/24 : 104 kg (230 lb) Body mass index is 25.93 kg/m . Physical Exam General: In no acute distress, resting comfortably in bed HEENT: Normocephalic, atraumatic Pulm: CTAB, breathing comfortably on RA Extremities: L thigh wound covered with bandages. Large L thigh mass without purulent and sanguinous drainage. Surround skin is erythematous, warm to palpation. Antibiotics chlorhexidine - 4 % clindamycin - 1 %, 1 % piperacillin-tazobactam - 3.375 gram/50 mL vancomycin vancomycin (Vancocin) - 1500 mg/500 mL Relevant Results Labs Results from last 72 hours Lab Units 11/13/24 1654 11/13/24 1535 11/13/24 0545 11/12/24 0640 WBC AUTO x10*3/uL 9.4 5.6 11.1 11.5* HEMOGLOBIN g/dL 8.2* 4.9* 8.3* 8.2* HEMATOCRIT % 25.5* 16.0* 26.2* 27.2* PLATELETS AUTO x10*3/uL 570* 306 576* 576* NEUTROS PCT AUTO % -- 78.9 72.1 68.2 LYMPHS PCT AUTO % -- 7.1 12.8 15.1 MONOS PCT AUTO % -- 9.8 9.6 11.0 EOS PCT AUTO % -- 3.6 3.9 4.8 Results from last 72 hours Lab Units 11/13/24 1723 11/13/24 1535 11/13/24 0545 11/12/24 0639 11/11/24 0930 SODIUM mmol/L 138 143 139 < > 139 POTASSIUM mmol/L 3.6 2.7* 3.7 < > 3.8 CHLORIDE mmol/L 108* 120* 106 < > 108* CO2 mmol/L 23 17* 25 < > 26 BUN mg/dL 9 6 9 < > 11 CREATININE mg/dL 1.40* 0.93 1.41* < > 1.40* GLUCOSE mg/dL 117* 83 106* < > 101* CALCIUM mg/dL 9.8 7.4* 11.1* < > 11.2* ANION GAP mmol/L 11 9 12 < > 9* EGFR mL/min/1.73m*2 61 >90 60* < > 61 PHOSPHORUS mg/dL -- 1.6* 3.0 -- 2.7 < > = values in this interval not displayed. Results from last 72 hours Lab Units 11/13/24 1723 11/13/24 1535 11/13/24 0545 11/12/24 0639 ALK PHOS U/L 89 89 -- 79 73 BILIRUBIN TOTAL mg/dL 0.3 0.3 -- 0.4 0.3 BILIRUBIN DIRECT mg/dL 0.1 -- -- -- PROTEIN TOTAL g/dL 5.9* 5.9* -- 6.2* 6.1* ALT U/L 17 17 -- 16 12 AST U/L 15 15 -- 13 7* ALBUMIN g/dL 2.8* 2.8* 2.1* 2.8* 2.9* Estimated Creatinine Clearance: 82.6 mL/min (A) (by C-G formula based on SCr of 1.4 mg/dL (H)). C-Reactive Protein Date Value Ref Range Status 11/10/2024 14.82 (H) <1.00 mg/dL Final 10/10/2024 7.72 (H) <1.00 mg/dL Final Microbiology Wound biopsy/culture: Neg gram stain, no organisms seen Assessment/Plan Kevan La is a 49 y.o. male with a past medical history of hidradenitis suppurativa (HS) refractory to numerous therapies (povorcitinib - RCT candidate, apremilast, isotretinoin, adalimumab, infliximab, moxifloxacin/metronidazole, minocyclin, clindamycin, rifampin, augmentin and doxycycline) who presented for left buttock and gluteal fold and L thigh mass suspicious for malignancy vs HS flare vs infection. Infectious disease was consulted for additional antibiotic recommendations. Wound culture from 11/12 shows no evidence of MRSA or Pseudomonas, for this reason we recommend discontinuing vanc/zosyn and starting PO Augmentin 875mg BID for 3 weeks. -No need for id outpatient labs or follow up Infectious disease will sign off at this time. Please feel free to reach out with any questions or concerns. If any questions about this patient please haiku or call id pager [phone] Sarah Caldwell, MS4 [employer] Infectious Diseases Team A Kevan La is a 49 y.o. male on day 3 of admission presenting with No Principal Problem: There is no principal problem currently on the Problem List. Please update the Problem List and refresh.. Subjective No acute events overnight. Patient was in much more pain this morning, but otherwise has no acute complaints. Objective Physical Exam Vitals reviewed. Constitutional: General: He is not in acute distress. Appearance: He is not ill-appearing. Cardiovascular: Rate and Rhythm: Normal rate and regular rhythm. Heart sounds: Normal heart sounds. No murmur heard. Pulmonary: Effort: No respiratory distress. Breath sounds: Normal breath sounds. No wheezing. Abdominal: General: There is no distension. Palpations: Abdomen is soft. Tenderness: There is no abdominal tenderness. Musculoskeletal: General: Tenderness and signs of injury present. Comments: Left buttock and left thigh wounds with wound pack on left buttock Neurological: General: No focal deficit present. Mental Status: He is alert and oriented to person, place, and time. Mental status is at baseline. Last Recorded Vitals Blood pressure 98/50, pulse 73, temperature 37 C (98.6 F), resp. rate 16, height 2.006 m (6' 6.98"), weight 104 kg (230 lb), SpO2 96%. Intake/Output last 3 Shifts: I/O last 3 completed shifts: In: 4881.7 (46.8 mL/kg) [I.V.:3551.7 (34 mL/kg); IV Piggyback:1330] Out: 5150 (49.4 mL/kg) [Urine:5150 (1.4 mL/kg/hr)] Weight: 104.3 kg Relevant Results Results from last 7 days Lab Units 11/13/24 0545 11/12/24 0639 11/11/24 0930 11/10/24 0529 GLUCOSE mg/dL 106* 93 101* 103* Scheduled medications acetaminophen, 975 mg, oral, TID chlorhexidine, , Topical, BID clindamycin, , Topical, BID enoxaparin, 40 mg, subcutaneous, q24h melatonin, 3 mg, oral, Nightly piperacillin-tazobactam, 3.375 g, intravenous, q6h polyethylene glycol, 17 g, oral, BID potassium chloride CR, 20 mEq, oral, Once sennosides-docusate sodium, 2 tablet, oral, BID vancomycin, 1,500 mg, intravenous, q24h varenicline tartrate, 1 mg, oral, BID Continuous medications sodium chloride 0.9%, 200 mL/hr, Last Rate: 200 mL/hr (11/13/24 1359) PRN medications PRN medications: HYDROmorphone, naloxone, ondansetron, oxyCODONE, oxyCODONE, vancomycin Results for orders placed or performed during the hospital encounter of 11/10/24 (from the past 24 hours) CBC and Auto Differential Result Value Ref Range WBC 11.1 4.4 - 11.3 x10*3/uL nRBC 0.0 0.0 - 0.0 /100 WBCs RBC 2.97 (L) 4.50 - 5.90 x10*6/uL Hemoglobin 8.3 (L) 13.5 - 17.5 g/dL Hematocrit 26.2 (L) 41.0 - 52.0 % MCV 88 80 - 100 fL MCH 27.9 26.0 - 34.0 pg MCHC 31.7 (L) 32.0 - 36.0 g/dL RDW 16.6 (H) 11.5 - 14.5 % Platelets 576 (H) 150 - 450 x10*3/uL Neutrophils % 72.1 40.0 - 80.0 % Immature Granulocytes %, Automated 1.0 (H) 0.0 - 0.9 % Lymphocytes % 12.8 13.0 - 44.0 % Monocytes % 9.6 2.0 - 10.0 % Eosinophils % 3.9 0.0 - 6.0 % Basophils % 0.6 0.0 - 2.0 % Neutrophils Absolute 8.02 (H) 1.20 - 7.70 x10*3/uL Immature Granulocytes Absolute, Automated 0.11 0.00 - 0.70 x10*3/uL Lymphocytes Absolute 1.43 1.20 - 4.80 x10*3/uL Monocytes Absolute 1.07 (H) 0.10 - 1.00 x10*3/uL Eosinophils Absolute 0.44 0.00 - 0.70 x10*3/uL Basophils Absolute 0.07 0.00 - 0.10 x10*3/uL Comprehensive Metabolic Panel Result Value Ref Range Glucose 106 (H) 74 - 99 mg/dL Sodium 139 136 - 145 mmol/L Potassium 3.7 3.5 - 5.3 mmol/L Chloride 106 98 - 107 mmol/L Bicarbonate 25 21 - 32 mmol/L Anion Gap 12 10 - 20 mmol/L Urea Nitrogen 9 6 - 23 mg/dL Creatinine 1.41 (H) 0.50 - 1.30 mg/dL eGFR 60 (L) >60 mL/min/1.73m*2 Calcium 11.1 (H) 8.6 - 10.6 mg/dL Albumin 2.8 (L) 3.4 - 5.0 g/dL Alkaline Phosphatase 79 33 - 120 U/L Total Protein 6.2 (L) 6.4 - 8.2 g/dL AST 13 9 - 39 U/L Bilirubin, Total 0.4 0.0 - 1.2 mg/dL ALT 16 10 - 52 U/L Magnesium Result Value Ref Range Magnesium 1.86 1.60 - 2.40 mg/dL Vancomycin Result Value Ref Range Vancomycin 26.4 (H) 5.0 - 20.0 ug/mL Assessment/Plan Kevan La is a 49 year old male with a PMH of refractory HS and gluteal abscess who is admitted to the hospital for gluteal wound abscess and HS. Endocrinology consulted for hypercalcemia. #Mild to moderate hypercalcemia - Non PTH mediated as PTH <6.3 - Most likely in the setting of immobility as patient reports that he's been bedbound since June - Calcium 11.1 today and improved from 11.4 yesterday, corrected calcium 12.1 and improved from 12.4 yesterday - Continue NS @ 200 mL/hr - S/p pamidronate 90 mg IV on 11/12 - Continue to trend daily RFPs - Endocrinology will continue to monitor Plan discussed with attending physician Dr. Marshall. Nataly Colunga MD PGY-2 IM resident Cosigned by Cecile Marshall MD at 11/14/2024 9:30 AM EST Associated attestation - Cecile Marshall MD - 11/14/2024 9:30 AM EST I saw and evaluated the patient. I personally obtained the gomez and critical portions of the history and physical exam or was physically present for gomez and critical portions performed by the resident/fellow. I reviewed the resident/fellow's documentation and discussed the patient with the resident/fellow. I agree with the resident/fellow's medical decision making as documented in the note. Vancomycin Dosing by Pharmacy- FOLLOW UP Kevan La is a 49 y.o. year old male who Pharmacy has been consulted for vancomycin dosing for cellulitis, skin and soft tissue. Based on the patient's indication and renal status this patient is being dosed based on a goal AUC of 400-600. Renal function is currently stable. Current vancomycin dose: 1500 mg given every 24 hours Estimated vancomycin AUC on current dose: 477 mg/L.hr Visit Vitals BP 98/50 Pulse 73 Temp 37 C (98.6 F) Resp 16 Lab Results Component Value Date CREATININE 1.41 (H) 11/13/2024 CREATININE 1.49 (H) 11/12/2024 CREATININE 1.40 (H) 11/11/2024 CREATININE 1.44 (H) 11/10/2024 Patient weight is as follows: Vitals: 11/11/24 0942 Weight: 104 kg (230 lb) Cultures: No results found for the encounter in last 14 days. I/O last 3 completed shifts: In: 4881.7 (46.8 mL/kg) [I.V.:3551.7 (34 mL/kg); IV Piggyback:1330] Out: 5150 (49.4 mL/kg) [Urine:5150 (1.4 mL/kg/hr)] Weight: 104.3 kg I/O during current shift: No intake/output data recorded. Temp (24hrs), Av.9 C (98.5 F), Min:36.9 C (98.4 F), Max:37 C (98.6 F) Assessment/Plan Within goal AUC range. Continue current vancomycin regimen. This dosing regimen is predicted by [employer] to result in the Loading dose: N/A Regimen: 1500 mg IV every 24 hours. Start time: 00:20 on 11/14/2024 Exposure target: AUC24 (range)400-600 mg/L.hr [id number]: 477 mg/L.hr AUC24,ss: 476 mg/L.hr Probability of AUC24 > 400: 86 % Ctrough,ss: 11.7 mg/L Probability of Ctrough,ss > 20: 3 % The next level will be obtained on 11/16 at 0500. May be obtained sooner if clinically indicated. Will continue to monitor renal function daily while on vancomycin and order serum creatinine at least every 48 hours if not already ordered. Follow for continued vancomycin needs, clinical response, and signs/symptoms of toxicity. Alberto ErazoD [place] [id number] Pharmacist Kevan La is a 49 y.o. male on day 3 of admission presenting with No Principal Problem: There is no principal problem currently on the Problem List. Please update the Problem List and refresh.. Subjective Pt is seen by the bedside. Pt was in tears from pain this AM due to breakthrough pain. No other complains. Awaiting IR guided drainage this AM. Pt denies CP, SOB, lightheadedness, dizziness, abdominal pain, N/V. Objective 24 Hour Vitals Temp: [36.9 C (98.4 F)-37 C (98.6 F)] 37 C (98.6 F) Heart Rate: [71-73] 73 Resp: [16] 16 BP: (98)/(50-62) 98/50 Temp (24hrs), Av.9 C (98.5 F), Min:36.9 C (98.4 F), Max:37 C (98.6 F) 24 hour Intake/Output Intake/Output Summary (Last 24 hours) at 11/13/2024 0758 Last data filed at 11/13/2024 0357 Gross per 24 hour Intake 4881.66 ml Output 3550 ml Net 1331.66 ml Exam: General: Resting in bed on his rigth side, appears in mild discomfort, but no acute distress. Well developed. Appears stated age. HEENT: Normocephalic and atraumatic. EOMI, sclera non-icteric Cardiovascular: RRR, no r/m/g Pulmonary: Lungs clear to auscultation bilaterally. No wheezes/ rhonchi/ rales GI: firm, but not rigid, non-tender : No Wallace cath Extremities: No LE edema. R hip skin is intact, no lesions, no bruising, non tender with heel squeeze. Skin: Left buttock and left thigh wounds with wound pack on left buttock Neurologic: CN II-XII grossly intact. Moving extremities spontaneously Psych: Pleasant. Appropriate mood and affect Labs CBC Results from last 72 hours Lab Units 11/13/24 0545 11/12/24 0640 11/11/24 0930 WBC AUTO x10*3/uL 11.1 11.5* 11.0 HEMOGLOBIN g/dL 8.3* 8.2* 8.3* HEMATOCRIT % 26.2* 27.2* 26.3* PLATELETS AUTO x10*3/uL 576* 576* 524* BMP Results from last 72 hours Lab Units 11/12/24 0639 11/11/24 0930 11/11/24 0558 SODIUM mmol/L 139 139 -- POTASSIUM mmol/L 3.6 3.8 -- CHLORIDE mmol/L 107 108* -- BUN mg/dL 11 11 -- CREATININE mg/dL 1.49* 1.40* -- MAGNESIUM mg/dL 1.91 1.98 1.96 PHOSPHORUS mg/dL -- 2.7 -- Medications Scheduled Medications acetaminophen, 975 mg, oral, TID chlorhexidine, , Topical, BID clindamycin, , Topical, BID enoxaparin, 40 mg, subcutaneous, q24h melatonin, 3 mg, oral, Nightly piperacillin-tazobactam, 3.375 g, intravenous, q6h polyethylene glycol, 17 g, oral, BID sennosides-docusate sodium, 2 tablet, oral, BID vancomycin, 1,500 mg, intravenous, q24h varenicline tartrate, 1 mg, oral, BID Continuous Medications sodium chloride 0.9%, 200 mL/hr, Last Rate: 200 mL/hr (11/12/242101) PRN Medications PRN medications: naloxone, ondansetron, oxyCODONE, oxyCODONE, vancomycin Assessment/Plan Kevan La is a 49 y.o. male with refractory hidradenitis supprativa (HS) not responding to povorcitinib (RCT candidate), apremilast, isotretinoin, adalimumab, infliximab, moxifloxacin/metronidazole, minocyclin, clindamycin, rifampin, augmentin and doxycycline, transferred from [facility] regarding 14cm gluteal fluid collection. He was recently admitted for the same L. gluteal abscess which was 9.2 x 5.7 x 13.2cm in size s/p I&D. Pending speciation of culture he was discharged with a course of Unasyn per ID however returns due to gluteal pain and questionable sepsis, CT Pelvis at OSH with large ulcerative wound at the left buttock with an adjacent 14.9 cm enhancing mass involving the left gluteal muscles and overlying subcutaneous tissue, larger than CT in 08/2024, which may represent failure of current antibiotic regimen. On Vanc and Zosyn. ACS surgery engaged, recommended no surgical interventions. Endocrinology engaged for hypercalcemia. Dermatology is following, pt s/p Bx and tissue Cx on 11/12/24. Engaged IR for poss. Abscess drainage. 11/13 Updates: - revised pain regimen - reaching out to IR to discuss plan of care - will update surgery if needed, once IR plans finalized #Gluteal wound s/p abscess I&D 10/13 #Refractory hidradenitis suppurativa #Deep tissue SSTI #Leukocytosis ::Patient with history of refractory HS having failed multiple modalities, now c/b gluteal abscess which he was admitted for 3 weeks ago s/p I&D, BCx with slache puentesa s/p Unasyn complete 10/28/2024 presenting to OSH with initial c/f sepsis found to have worsening gluteal abscess ::CT 11/08/2024: Large ulcerative wound at the left buttock with an adjacent 14.9 cm enhancing mass involving the left gluteal muscles and overlying subcutaneous tissue, larger than CT in 08/2024 ::BP 90/50 on admit here but per review of prior admission, pressures typically land in the mid 90s systolic ::WBC 13.9 on presentation, 11 this AM, improving ::Lactate 11/08: 1.2; 1.3 on 11/10 :: [facility] Blood Cx 11/08 NGTD; Wound Cx were ordered, but not collected :: Last dose of Povorcitanib 10/10 :: WBC 11.1 :: Blood Cx from 11/10 NGTD :: Tissue Cx from 11/12 in progress, no organism seen on Gram stain :: s/p tissue bx 11/12 with Dermatology Plan: - continue to follow BCx from [facility] -> micro lab -> blood Cx - Continue Topical Clindamycin BID, Hibiclens BID - ID consult placed - Holding home PO iron iso possible infection - Continue V/Z (11/08 - xx) - Pain: Tylenol TID, Oxy 5 Q4H prn mod pain and Oxy 10 Q6h prn severe pain, dilaudid 0.4 mg Q 4 hrs for breakthrough pain - Dermatology recs appreciated: - Continue hibiclens wash BID, topical clindamycin BID, and wound care - Patient will need diligent wound care once discharged. Recommend initiating process of arranging home wound care. - initiated orders for approval from insurance for Bimzelx (IL17A/F inhibitor) - Quant TB, HIV, Hep B surface antigen/antibody, Hep B core antibody, and Hep C testing-- all negative #Hypotension :: appears long standing on chart review, pt confirmed hx of low BPs :: normal TSH @ [facility] #Hypercalcemia, mild ::presented with CoCa 12.5; iCa 1.69; PTH <6.3 ::25-OH vit D 79; 1.25-OH vit D 35.9 ::PTHrP, SPEP, urine Ca pending :: UPEP wnl ::TSH wnl at [facility] :: Endo following :: s/p pamidronate 90 mg IV 11/12/24 - follow SPEP, urine 24 hr Ca, PTHrP, 1.25-OH vit D levels - continue 200 ml/hr NS #Nicotine Use - Continue home Chantix #Subacute PARUL ::Cr ~1.6 on last admission, 1.48 on admission to [facility] 11/08 > 1.42, prior Cr in 03/2023 was 1.2; Cr 1.44 on presentation to ::On prior admission was evaluated for this with normal UA, CT with no hydronephrosis, felt to be 2/2 NSAID use for HS ::A1c and UA normal on admission at [facility] ::FeUrea 48.2% (>35=> suggestive of intrinsic renal disease) - Avoid nephrotoxic drug, hypotension, sepsis, dehydration - Continuing to encourage oral hydration and treat hypercalcemia #Bladder Calculi ::Incidentally noted on CT Pelvis from OSH, asymptomatic, max diam is 1.5 cm #Anemia :: Hgb 10.4 at [facility], Hgb 8.8 on admission, 8.3 today, stable :: 10/10/24: decr TIBC 218 and Fe 24; normal ferritin 259 :: Holding home PO iron iso possible infection - no evidence of bleeding, pt is HD stable (BPs are soft at baseline per pt), no tachycardia, no neurological changes - will maintain active type and screen Isa Turner MD college president, PGY-1 Cosigned by Claudio Plunkett MD at 11/13/2024 2:09 PM EST Associated attestation - Claudio Plunkett MD - 11/13/2024 2:09 PM EST I saw and evaluated the patient. I personally obtained the gomez and critical portions of the history and physical exam or was physically present for gomez and critical portions performed by the resident/fellow. I reviewed the resident/fellow's documentation and discussed the patient with the resident/fellow. I agree with the resident/fellow's medical decision making as documented in the note with the exception/addition of the following: was in a lot of pain early this morning , so we need to improve pain control. Ir consulted about a possible aspiration . Physical Therapy Physical Therapy Evaluation & Treatment Patient Name: Kevan La Department: [place] [id number] Room: [address] [place] [address] Today's Date: 11/12/2024 Time Calculation Start Time: 1459 Stop Time: 1528 Time Calculation (min): 29 min Assessment/Plan PT Assessment PT Assessment Results: Decreased mobility, Pain, Decreased endurance, Decreased strength Rehab Prognosis: Good Barriers to Discharge Home: Caregiver assistance, Physical needs Caregiver Assistance: Patient lives alone and/or does not have reliable caregiver assistance Physical Needs: Stair navigation into home limited by function/safety, Ambulating household distances limited by function/safety, High falls risk due to function or environment End of Session Communication: Bedside nurse Assessment Comment: Pt with decreased mobility activities as compared to previous admission, needing assist to complete mobility and ADL tasks. Will benefit from skilled PT to progress towards (I) functional mobility. End of Session Patient Position: Bed, 3 rail up, Alarm off, not on at start of session IP OR SWING BED PT PLAN Inpatient or Swing Bed: Inpatient PT Plan Treatment/Interventions: Bed mobility, Transfer training, Gait training, Therapeutic exercise, Therapeutic activity PT Plan: Ongoing PT PT Frequency: 3 times per week PT Discharge Recommendations: Moderate intensity level of continued care Equipment Recommended upon Discharge: Wheeled walker PT Recommended Transfer Status: Assist x1, Assistive device PT - OK to Discharge: Yes (POC/goals/discharge rec intensity created) Subjective General Visit Information: General Reason for Referral: gluteal fluid collection (s/p biopsy by dermatology 11/12) Past Medical History Relevant to Rehab: refractory hidradenitis supprativa, (L) gluteal wound s/p recent I&D Prior to Session Communication: Bedside nurse General Comment: Pt reports having pain meds recently so feeling loopy, agreeable to participate. Assisted pt with donning pants and gown, changing soiled linens during session. Able to sit up to EOB and partially stand though unable to fully complete due to pain and feeling unsteady. Will continue to follow. Home Living: Home Living Type of Home: House Lives With: Alone Home Adaptive Equipment: None Home Layout: Able to live on main level with bedroom/bathroom Home Access: Stairs to enter with rails Entrance Stairs-Number of Steps: 3-5 Home Living Comments: was admitted from SNF due to need for IV antibiotics Prior Level of Function: Prior Function Per Pt/Caregiver Report ADL Assistance: (previously (I)) Ambulatory Assistance: ((I), recently more limited activity due to ongoing wound, feels like he needs to hold onto things more when up on his feet) Prior Function Comments: per bedside nurse, has been up a few times this date, appears unsafe with furniture walking. Precautions: Precautions Hearing/Visual Limitations: glasses Medical Precautions: Fall precautions Objective Pain: Pain Assessment Pain Assessment: 0-10 0-10 (Numeric) Pain Score: 8 Pain Location: Buttocks Pain Orientation: Left Cognition: Cognition Arousal/Alertness: Appropriate responses to stimuli Orientation Level: Disoriented to time Following Commands: Follows one step commands with repetition General Assessments: Activity Tolerance Endurance: Tolerates 10 - 20 min exercise with multiple rests Perception Inattention/Neglect: Appears intact Initiation: Appears intact Motor Planning: Appears intact Perseveration: Not present Coordination Coordination Comment: some difficulty with LB dressing tasks due to pain Postural Control Posture Comment: favors lean to (R) in bed and with sitting/limiting weight through (L) buttocks Static Sitting Balance Static Sitting-Balance Support: Feet supported, Right upper extremity supported Static Sitting-Level of Assistance: Distant supervision Static Sitting-Comment/Number of Minutes: leans heavily to (R) due to pain Functional Assessments: Bed Mobility Bed Mobility: Yes Bed Mobility 1 Bed Mobility 1: Rolling right, Rolling left Level of Assistance 1: Distant supervision Bed Mobility Comments 1: completes slowly, will bridge hips to avoid pressure on (L) buttocks Bed Mobility 2 Bed Mobility 2: Supine to sitting Level of Assistance 2: Close supervision Bed Mobility Comments 2: completes slowly, use of bed rail Bed Mobility 3 Bed Mobility 3: Sitting to supine Level of Assistance 3: Close supervision Transfers Transfer: Yes Transfer 1 Technique 1: Sit to stand, Stand to sit Transfer Device 1: Walker (bed height elevated (pt is 6'7")) Transfer Level of Assistance 1: Moderate assistance, Minimal verbal cues Trials/Comments 1: cues for hand placement, pt able to partially stand/clears bed but does not fully complete upright posture, pt reports due to pain and overall unsteady feeling due to pain meds. Also discussed attempting to complete towards opposite side of bed (completed towards (R) this date, in recent past did well getting OOB towards (L) ). Ambulation/Gait Training Ambulation/Gait Training Performed: No, unable to fully stand at this time. Did ambulate to bathroom earlier this date per nursing unsafely furniture walking. Extremity/Trunk Assessments: RLE RLE : Within Functional Limits LLE LLE : Exceptions to WFL Strength LLE LLE Overall Strength: Greater than or equal to 3/5 as evidenced by functional mobility Treatments: Therapeutic Activity Therapeutic Activity Performed: Yes Therapeutic Activity 1: assisted pt with threading (B) LEs into hospital pants with max A/unable to fully reach down or bring feet up to accomplish on his own at this time. Pt able to bridge hips to pull fully up while in supine/partial sidelying. Therapeutic Activity 2: Sat to EOB ~8 min, mostly leaning towards (R)/propped up on elbow due to (L) buttocks pain. Able to briefly complete upright midline sitting posture but only holds for ~20 seconds before returning to (R) lean/propped on elbow. Outcome Measures: [facility] Basic Mobility Turning from your back to your side while in a flat bed without using bedrails: A little Moving from lying on your back to sitting on the side of a flat bed without using bedrails: A little Moving to and from bed to chair (including a wheelchair): A lot Standing up from a chair using your arms (e.g. wheelchair or bedside chair): A lot To walk in hospital room: Total Climbing 3-5 steps with railing: Total Basic Mobility - Total Score: 12 Encounter Problems Encounter Problems (Active) Balance STG - Maintains dynamic standing balance with upper extremity support with CGA-> close (S), LRAD. Start: 11/12/24 Expected End: 11/26/24 Mobility STG - Patient will ambulate with CGA-> close (S), LRAD, 50 ft x2. Start: 11/12/24 Expected End: 11/26/24 PT Transfers STG - Patient will perform bed mobility with (S)-> (I). Start: 11/12/24 Expected End: 11/26/24 STG - Patient will transfer sit to and from stand CGA-> close (S). Start: 11/12/24 Expected End: 11/26/24 Education Documentation Mobility Training, taught by Doris Guzman PT at 11/12/2024 4:30 PM. Learner: Patient Readiness: Acceptance Method: Explanation Response: Verbalizes Understanding Comment: PT POC, safe mobility, use of whw with nursing staff 11/12/24 at 5:43 PM - Doris Guzman PT Kevan La is a 49 y.o. male on day 2 of admission presenting with No Principal Problem: There is no principal problem currently on the Problem List. Please update the Problem List and refresh.. Subjective Patient lost IV access, nursing staff in the room to try and replace it. Patient currently denies any acute complaints and states that pain is under good control. Has been making an effort to ambulate more, encouraged him to do so. Objective Physical Exam Vitals reviewed. Constitutional: General: He is not in acute distress. Appearance: He is not ill-appearing. Cardiovascular: Rate and Rhythm: Normal rate and regular rhythm. Heart sounds: Normal heart sounds. No murmur heard. Pulmonary: Effort: No respiratory distress. Breath sounds: Normal breath sounds. No wheezing. Abdominal: General: There is no distension. Palpations: Abdomen is soft. Tenderness: There is no abdominal tenderness. Musculoskeletal: General: Tenderness and signs of injury present. Comments: Left buttock and left thigh wounds with wound pack on left buttock Neurological: General: No focal deficit present. Mental Status: He is alert and oriented to person, place, and time. Mental status is at baseline. Last Recorded Vitals Blood pressure 92/53, pulse 74, temperature 36.6 C (97.9 F), resp. rate 16, height 2.006 m (6' 6.98"), weight 104 kg (230 lb), SpO2 96%. Intake/Output last 3 Shifts: I/O last 3 completed shifts: In: - (0 mL/kg) Out: 4500 (43.1 mL/kg) [Urine:4500 (1.2 mL/kg/hr)] Weight: 104.3 kg Relevant Results Results from last 7 days Lab Units 11/12/24 0639 11/11/24 0930 11/10/24 0529 GLUCOSE mg/dL 93 101* 103* Scheduled medications acetaminophen, 975 mg, oral, TID chlorhexidine, , Topical, BID clindamycin, , Topical, BID enoxaparin, 40 mg, subcutaneous, q24h melatonin, 3 mg, oral, Nightly piperacillin-tazobactam, 3.375 g, intravenous, q6h polyethylene glycol, 17 g, oral, BID sennosides-docusate sodium, 2 tablet, oral, BID vancomycin, 1,500 mg, intravenous, q24h varenicline tartrate, 1 mg, oral, BID Continuous medications sodium chloride 0.9%, 200 mL/hr PRN medications PRN medications: naloxone, ondansetron, oxyCODONE, oxyCODONE, vancomycin Results for orders placed or performed during the hospital encounter of 11/10/24 (from the past 24 hours) Comprehensive Metabolic Panel Result Value Ref Range Glucose 93 74 - 99 mg/dL Sodium 139 136 - 145 mmol/L Potassium 3.6 3.5 - 5.3 mmol/L Chloride 107 98 - 107 mmol/L Bicarbonate 23 21 - 32 mmol/L Anion Gap 13 10 - 20 mmol/L Urea Nitrogen 11 6 - 23 mg/dL Creatinine 1.49 (H) 0.50 - 1.30 mg/dL eGFR 56 (L) >60 mL/min/1.73m*2 Calcium 11.4 (H) 8.6 - 10.6 mg/dL Albumin 2.9 (L) 3.4 - 5.0 g/dL Alkaline Phosphatase 73 33 - 120 U/L Total Protein 6.1 (L) 6.4 - 8.2 g/dL AST 7 (L) 9 - 39 U/L Bilirubin, Total 0.3 0.0 - 1.2 mg/dL ALT 12 10 - 52 U/L Magnesium Result Value Ref Range Magnesium 1.91 1.60 - 2.40 mg/dL CBC and Auto Differential Result Value Ref Range WBC 11.5 (H) 4.4 - 11.3 x10*3/uL nRBC 0.0 0.0 - 0.0 /100 WBCs RBC 3.04 (L) 4.50 - 5.90 x10*6/uL Hemoglobin 8.2 (L) 13.5 - 17.5 g/dL Hematocrit 27.2 (L) 41.0 - 52.0 % MCV 90 80 - 100 fL MCH 27.0 26.0 - 34.0 pg MCHC 30.1 (L) 32.0 - 36.0 g/dL RDW 16.7 (H) 11.5 - 14.5 % Platelets 576 (H) 150 - 450 x10*3/uL Neutrophils % 68.2 40.0 - 80.0 % Immature Granulocytes %, Automated 0.3 0.0 - 0.9 % Lymphocytes % 15.1 13.0 - 44.0 % Monocytes % 11.0 2.0 - 10.0 % Eosinophils % 4.8 0.0 - 6.0 % Basophils % 0.6 0.0 - 2.0 % Neutrophils Absolute 7.80 (H) 1.20 - 7.70 x10*3/uL Immature Granulocytes Absolute, Automated 0.04 0.00 - 0.70 x10*3/uL Lymphocytes Absolute 1.73 1.20 - 4.80 x10*3/uL Monocytes Absolute 1.26 (H) 0.10 - 1.00 x10*3/uL Eosinophils Absolute 0.55 0.00 - 0.70 x10*3/uL Basophils Absolute 0.07 0.00 - 0.10 x10*3/uL Assessment/Plan Kevan La is a 49 year old male with a PMH of refractory HS and gluteal abscess who is admitted to the hospital for gluteal wound abscess and HS. Endocrinology consulted for hypercalcemia. #Mild to moderate hypercalcemia - Non PTH mediated as PTH <6.3 - Most likely in the setting of immobility as patient reports that he's been bedbound since June, however is pending further workup. - Calcium 11.4 today and slightly worse from 11.2 yesterday, corrected calcium 12.4 and slightly worse from 12.3 yesterday - Continue NS @ 200 mL/hr - Give a one time dose of pamidronate 90 mg IV today - UPEP unremarkable - Pending further workup: PTHrP, SPEP, 24 hour calcium, 1,25 Vitamin D - Continue to trend daily RFPs - Endocrinology will continue to monitor Plan discussed with attending physician Dr. Marshall. Nataly Colunga MD PGY-2 IM resident Cosigned by Cecile Marshall MD at 11/14/2024 9:31 AM EST Associated attestation - Cecile Marshall MD - 11/14/2024 9:31 AM EST I saw and evaluated the patient. I personally obtained the gomez and critical portions of the history and physical exam or was physically present for gomez and critical portions performed by the resident/fellow. I reviewed the resident/fellow's documentation and discussed the patient with the resident/fellow. I agree with the resident/fellow's medical decision making as documented in the note. Kevan La is a 49 y.o. male on day 2 of admission presenting with No Principal Problem: There is no principal problem currently on the Problem List. Please update the Problem List and refresh.. Subjective Pt is seen by the bedside. In moderate pain, awaiting PRN medication. No other complains. Pt denies CP, SOB, lightheadedness, dizziness, abdominal pain, N/V. Objective 24 Hour Vitals Temp: [36.4 C (97.5 F)-36.7 C (98.1 F)] 36.7 C (98.1 F) Heart Rate: [67-76] 76 Resp: [14-16] 16 BP: (91-108)/(51-55) 91/53 Temp (24hrs), Av.6 C (97.9 F), Min:36.4 C (97.5 F), Max:36.7 C (98.1 F) 24 hour Intake/Output Intake/Output Summary (Last 24 hours) at 11/12/2024 0539 Last data filed at 11/12/2024 0400 Gross per 24 hour Intake -- Output 3450 ml Net -3450 ml Exam: General: Resting in bed on his rigth side, appears in mild discomfort, but no acute distress. Well developed. Appears stated age. HEENT: Normocephalic and atraumatic. EOMI, sclera non-icteric Cardiovascular: RRR, no r/m/g Pulmonary: Lungs clear to auscultation bilaterally. No wheezes/ rhonchi/ rales GI: firm, but not rigid, non-tender : No Wallace cath Extremities: No LE edema. R hip skin is intact, no lesions, no bruising, non tender with heel squeeze. Skin: warm and dry. Large buttock wound, partially covered with clean dressing. Neurologic: CN II-XII grossly intact. Moving extremities spontaneously Psych: Pleasant. Appropriate mood and affect Labs CBC Results from last 72 hours Lab Units 11/11/24 0930 11/10/24 0530 WBC AUTO x10*3/uL 11.0 11.8* HEMOGLOBIN g/dL 8.3* 8.8* HEMATOCRIT % 26.3* 27.6* PLATELETS AUTO x10*3/uL 524* 570* BMP Results from last 72 hours Lab Units 11/11/24 0930 11/11/24 0558 11/10/24 0529 SODIUM mmol/L 139 -- 139 POTASSIUM mmol/L 3.8 -- 3.8 CHLORIDE mmol/L 108* -- 104 BUN mg/dL 11 -- 16 CREATININE mg/dL 1.40* -- 1.44* MAGNESIUM mg/dL 1.98 1.96 1.72 PHOSPHORUS mg/dL 2.7 -- -- Medications Scheduled Medications acetaminophen, 975 mg, oral, TID chlorhexidine, , Topical, BID clindamycin, , Topical, BID enoxaparin, 40 mg, subcutaneous, q24h melatonin, 3 mg, oral, Nightly piperacillin-tazobactam, 3.375 g, intravenous, q6h polyethylene glycol, 17 g, oral, BID sennosides-docusate sodium, 2 tablet, oral, BID vancomycin, 1,500 mg, intravenous, q24h varenicline tartrate, 1 mg, oral, BID Continuous Medications sodium chloride 0.9%, 200 mL/hr, Last Rate: 200 mL/hr (11/11/242247) PRN Medications PRN medications: naloxone, ondansetron, oxyCODONE, oxyCODONE, vancomycin Assessment/Plan Kevan La is a 49 y.o. male with refractory hidradenitis supprativa (HS) not responding to povorcitinib (RCT candidate), apremilast, isotretinoin, adalimumab, infliximab, moxifloxacin/metronidazole, minocyclin, clindamycin, rifampin, augmentin and doxycycline, transferred from [facility] regarding 14cm gluteal fluid collection. He was recently admitted for the same L. gluteal abscess which was 9.2 x 5.7 x 13.2cm in size s/p I&D. Pending speciation of culture he was discharged with a course of Unasyn per ID however returns due to gluteal pain and questionable sepsis, CT Pelvis at OSH with large ulcerative wound at the left buttock with an adjacent 14.9 cm enhancing mass involving the left gluteal muscles and overlying subcutaneous tissue, larger than CT in 08/2024, which may represent failure of current antibiotic regimen. On Vanc and Zosyn. ACS surgery engaged, recommended no surgical interventions. Endocrinology engaged for hypercalcemia. Dermatology is following. 11/12 Updates: - biopsy and tissue Cx today with Dermatology, follow recs - ID consulted #Gluteal wound s/p abscess I&D 10/13 #Refractory hidradenitis suppurativa #Deep tissue SSTI #Leukocytosis ::Patient with history of refractory HS having failed multiple modalities, now c/b gluteal abscess which he was admitted for 3 weeks ago s/p I&D, BCx with slackia exigua s/p Unasyn complete 10/28/2024 presenting to OSH with initial c/f sepsis found to have worsening gluteal abscess ::CT 11/08/2024: Large ulcerative wound at the left buttock with an adjacent 14.9 cm enhancing mass involving the left gluteal muscles and overlying subcutaneous tissue, larger than CT in 08/2024 ::BP 90/50 on admit here but per review of prior admission, pressures typically land in the mid 90s systolic ::WBC 13.9 on presentation, 11 this AM, improving ::Lactate 11/08: 1.2; 1.3 [facility] 11[facility]; Wound Cx were ordered, but not collected :: Blood Cx from 11/10 NGTD :: -Last dose of Povorcitanib 10/10 :: WBC 11-> 11.5 Plan: - continue to follow BCx from [facility] -> micro lab -> blood Cx - follow up wound care recs - Continue Topical Clindamycin BID, Hibiclens BID - ID consult placed - Holding home PO iron iso likely infection - Continue V/Z (11/08 - xx) - Pain: Tylenol TID, Oxy 5 Q4H prn mod pain and Oxy 10 Q6h prn severe pain - Dermatology recs appreciated: - biopsy 11/12/24 - Continue hibiclens wash BID, topical clindamycin BID, and wound care - Patient will need diligent wound care once discharged. Recommend initiating process of arranging home wound care. - initiated orders for approval from insurance for Bimzelx (IL17A/F inhibitor) - Quant TB, HIV, Hep B surface antigen/antibody, Hep B core antibody, and Hep C testing-- all negative #Hypotension :: appears long standing on chart review, pt confirmed hx of low BPs :: normal TSH @ [facility] #Hypercalcemia, mild ::presented with CoCa 12.5; iCa 1.69; PTH <6.3 ::25-OH vit D 79 ::1.25-OH vit D, PTHrP, SPEP, urine Ca pending :: UPEP wnl ::TSH wnl at [facility] :: Endo following - follow SPEP, urine 24 hr Ca, PTHrP, 1.25-OH vit D levels - continue 200 ml/hr NS #Nicotine Use - Continue home Chantix #Subacute PARUL ::Cr ~1.6 on last admission, 1.48 on admission to [facility] 11/08 > 1.42, prior Cr in 03/2023 was 1.2; Cr 1.44 on presentation to ::On prior admission was evaluated for this with normal UA, CT with no hydronephrosis, felt to be 2/2 NSAID use for HS ::A1c and UA normal on admission at [facility] :: FeUrea 48.2% (>35=> suggestive of intrinsic renal disease) - Avoid nephrotoxic drug, hypotension, sepsis, dehydration - Continuing to encourage oral hydration and treat hypercalcemia #Bladder Calculi ::Incidentally noted on CT Pelvis from OSH, asymptomatic, max diam is 1.5 cm #Anemia :: Hgb 10.4 at [facility], Hgb 8.8 on admission, 8.3 today - no evidence of bleeding, pt is HD stable (Bps are soft at baseline per pt), no tachycardia, no neurological changes - will maintain active type and screen Isa Turner MD college president, PGY-1 Cosigned by Claudio Plunkett MD at 11/12/2024 2:18 PM EST Associated attestation - Claudio Plunkett MD - 11/12/2024 2:18 PM EST I saw and evaluated the patient. I personally obtained the gomez and critical portions of the history and physical exam or was physically present for gomez and critical portions performed by the resident/fellow. I reviewed the resident/fellow's documentation and discussed the patient with the resident/fellow. I agree with the resident/fellow's medical decision making as documented in the note with the exception/addition of the following: I discussed 's care with him. Continuing with iv antibiotics. We will consult ID today . Biopsy and culture today by dermatology. No current plans for surgical intervention. Occupational Therapy Evaluation and Treatment Patient Name: Kevan La Today's Date: 11/11/2024 Room: [address] [place] [address] Time Calculation Start Time: 1234 Stop Time: 1303 Time Calculation (min): 29 min Assessment IP OT Assessment OT Assessment: pt motivated to engage in therapy session. Pt denied transfers/mobility this date due to wound on L buttocks and pt reports pain w any mvmt from wound. Pt agreed to participate in bed level ADLs w Set up A for grooming tasks and Mod A to don/doff pants over B lower legs. Pt limited by pain, fatigue, decreased endurance, strength, activity tolerance, and balance. Pt would benefit from continued OT to address these deficits. Prognosis: Good Barriers to Discharge Home: Caregiver assistance, Physical needs Caregiver Assistance: Patient lives alone and/or does not have reliable caregiver assistance Physical Needs: Stair navigation into home limited by function/safety, Ambulating household distances limited by function/safety, 24hr mobility assistance needed, 24hr ADL assistance needed, High falls risk due to function or environment Evaluation/Treatment Tolerance: Patient limited by pain (wound in L buttocks needing changed) Medical Staff Made Aware: Yes End of Session Communication: Bedside nurse End of Session Patient Position: Bed, 3 rail up, Alarm on (side lying on R side) Plan: Inpatient Plan Treatment Interventions: ADL retraining, Functional transfer training, Endurance training, Patient/family training, Equipment evaluation/education, Compensatory technique education OT Frequency: 3 times per week OT Discharge Recommendations: Moderate intensity level of continued care Equipment Recommended upon Discharge: (TBD) OT Recommended Transfer Status: Maximum assist, Assist of 1 OT - OK to Discharge: Yes OT Assessment OT Assessment Results: Decreased ADL status, Decreased endurance, Decreased functional mobility, Decreased IADLs, Decreased trunk control for functional activities Prognosis: Good Evaluation/Treatment Tolerance: Patient limited by pain (wound in L buttocks needing changed) Medical Staff Made Aware: Yes Strengths: Attitude of self, Ability to acquire knowledge Barriers to Participation: Comorbidities Subjective Current Problem: 1. Gluteal abscess General: Reason for Referral: returning to [facility] 11/10/2024 as a transfer from [facility] regarding 14cm gluteal fluid collection, concern of sepsis. Past Medical History Relevant to Rehab: refractory hidradenitis supprativa (HS); recently admitted to [facility] 10/11 - 10/23/2024 and underwent I&D on 10/13 for infection control. He had positive blood culture and was on antibiotics. He was eventually discharged to SNF. Prior to Session Communication: Bedside nurse Patient Position Received: Bed, 3 rail up, Alarm off, not on at start of session Family/Caregiver Present: No General Comment: Pt supine in bed upon OT arrival. Pt was pleasant and agreeable to participate in therapy session. Pt limited w mobility this date as pt denied all mobility until wound is checked by wound care. RN aware Precautions: Medical Precautions: Fall precautions Vital Signs: During OT: BP 96/53 HR 70 Pain: Pain Assessment Pain Assessment: 0-10 0-10 (Numeric) Pain Score: 3 Pain Location: Buttocks Pain Interventions: Repositioned, Distraction Response to Interventions: (best at rest) Objective Cognition: Overall Cognitive Status: Within Functional Limits Arousal/Alertness: Appropriate responses to stimuli Orientation Level: Disoriented to time (cues needed for date) Following Commands: Follows all commands and directions without difficulty Attention: Within Functional Limits Impulsive: Within functional limits Processing Speed: Within funtional limits Home Living: Type of Home: House Lives With: Alone Home Adaptive Equipment: None Home Layout: Two level, Able to live on main level with bedroom/bathroom, Laundry main level Home Access: Stairs to enter with rails Entrance Stairs-Number of Steps: 3 front entry; 5-6 back entry Bathroom Shower/Tub: Tub/shower unit Bathroom Toilet: Standard Bathroom Equipment: Grab bars in shower, Built-in shower seat, Grab bars around toilet Home Living Comments: pt is from [facility]. 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 Pt reports furniture walking at SNF. 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 ADL: Eating Assistance: Independent (anticipated) Grooming Assistance: Stand by Grooming Deficit: Supervision/safety, Setup Bathing Assistance: Moderate (anticipated) Bathing Deficit: Supervision/safety, Increased time to complete , Buttocks, Right lower leg including foot, Left lower leg including foot, Right upper leg, Left upper leg UE Dressing Assistance: Minimal UE Dressing Deficit: Supervision/safety, Increased time to complete, Thread RUE, Thread LUE, Pull around back LE Dressing Assistance: Moderate LE Dressing Deficit: Supervision/safety, Increased time to complete, Thread RLE into pants, Thread LLE into pants Toileting Assistance with Device: Moderate (anticipated) Toileting Deficit: Supervison/safety, Increased time to complete, Clothing management up, Clothing management down Activity Tolerance: Endurance: Other (Comment) (pt denied all mvmt this date due to wound on buttocks) Bed Mobility/Transfers: Bed Mobility/Transfers: Bed Mobility Bed Mobility: No (pt side lying on R side; wound on L buttocks needing dressing change, pt denied all mobility/transfers this date until wound seen by wound care) and Transfers Transfer: (pt denied all mobility/transfers this date until wound seen by wound care) IADL's: Homemaking Responsibilities: (SNF staff completes) Current License: Yes Mode of Transportation: Car 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 Vision: Vision - Basic Assessment Current Vision: No visual deficits Sensation: Light Touch: (denies N/T in BUEs; reports N/T in BLE feet) Strength: Strength Comments: BUEs 4/5 when formally assessed Perception: Inattention/Neglect: Appears intact Coordination: Movements are Fluid and Coordinated: Yes (BUEs WFL) Hand Function: Hand Function Gross Grasp: Functional Coordination: Functional Extremities: RUE RUE : Within Functional Limits (4/5 when formally assessed), LUE LUE: Within Functional Limits (4/5 when formally assessed) Outcome Measures: [facility] Daily Activity Putting on and taking off regular lower body clothing: A lot Bathing (including washing, rinsing, drying): A lot Putting on and taking off regular upper body clothing: A little Toileting, which includes using toilet, bedpan or urinal: A lot Taking care of personal grooming such as brushing teeth: A little Eating Meals: None Daily Activity - Total Score: 16 Education Documentation Body Mechanics, taught by Jessie Cevallos OT at 11/11/2024 3:12 PM. Learner: Patient Readiness: Acceptance Method: Explanation Response: Verbalizes Understanding Precautions, taught by Jessie Cevallos OT at 11/11/2024 3:12 PM. Learner: Patient Readiness: Acceptance Method: Explanation Response: Verbalizes Understanding ADL Training, taught by Jessie Cevallos OT at 11/11/2024 3:12 PM. Learner: Patient Readiness: Acceptance Method: Explanation Response: Verbalizes Understanding Education Comments No comments found. Goals: Encounter Problems Encounter Problems (Active) ADLs Patient with complete upper body dressing with independent level of assistance donning and doffing all UE clothes with no adaptive equipment while edge of bed. (Progressing) Start: 11/11/24 Expected End: 12/02/24 Patient with complete lower body dressing with stand by assist level of assistance donning and doffing all LE clothes with PRN adaptive equipment while edge of bed. (Progressing) Start: 11/11/24 Expected End: 12/02/24 Patient will complete daily grooming tasks brushing teeth and washing face/hair with independent level of assistance while edge of bed and if progressing, standing at sink. (Progressing) Start: 11/11/24 Expected End: 12/02/24 MOBILITY Patient will perform Functional mobility min Household distances/Community Distances with minimal assist level of assistance and least restrictive device in order to improve safety and functional mobility. (Progressing) Start: 11/11/24 Expected End: 12/02/24 TRANSFERS Patient will perform bed mobility minimal assist level of assistance and bed rails in order to improve safety and independence with mobility (Progressing) Start: 11/11/24 Expected End: 12/02/24 Patient will complete sit to stand transfer with minimal assist level of assistance and least restrictive device in order to improve safety and prepare for out of bed mobility. (Progressing) Start: 11/11/24 Expected End: 12/02/24 Treatment Completed on Evaluation Activities of Daily Living: Grooming Grooming Level of Assistance: Setup Grooming Where Assessed: Bed level Grooming Comments: Set up A for oral care while supine in bed UE Dressing UE Dressing Level of Assistance: Minimum assistance UE Dressing Where Assessed: Bed level UE Dressing Comments: Min A don gown while supine in bed LE Dressing LE Dressing: Yes LE Dressing Where Assessed: Bed level LE Dressing Comments: Mod A doff/don pants over B lower legs; assist to thread pants over BLEs Therapy/Activity: Therapeutic Activity Therapeutic Activity Performed: No (pt denied) 11/11/24 at 3:13 PM JESSIE CEVALLOS OT Rehab Office: [phone] Kevan aL is a 49 y.o. male on day 1 of admission presenting with No Principal Problem: There is no principal problem currently on the Problem List. Please update the Problem List and refresh.. Subjective Patient seen and examined at bedside. Patient is continuing to struggle with pain control and trying to get out of bed at this time. He denies headaches, lightheadedness, constipation, or other complaints at this time. I have reviewed histories, allergies and medications have been reviewed and there are no changes Objective Physical Exam Vitals reviewed. Constitutional: General: He is not in acute distress. Appearance: He is not ill-appearing. Cardiovascular: Rate and Rhythm: Normal rate and regular rhythm. Heart sounds: Normal heart sounds. No murmur heard. Pulmonary: Effort: No respiratory distress. Breath sounds: Normal breath sounds. No wheezing. Abdominal: General: There is no distension. Palpations: Abdomen is soft. Tenderness: There is no abdominal tenderness. Musculoskeletal: General: Tenderness and signs of injury present. Comments: Left buttock and left thigh wounds with wound pack on left buttock Neurological: General: No focal deficit present. Mental Status: He is alert and oriented to person, place, and time. Mental status is at baseline. Last Recorded Vitals Blood pressure 96/53, pulse 70, temperature 36.7 C (98.1 F), temperature source Temporal, resp. rate 16, height 2.006 m (6' 6.98"), weight 104 kg (230 lb), SpO2 95%. Intake/Output last 3 Shifts: I/O last 3 completed shifts: In: 866.7 [I.V.:516.7; IV Piggyback:350] Out: 2375 [Urine:2375] Relevant Results Results from last 7 days Lab Units 11/11/24 0930 11/10/24 0529 GLUCOSE mg/dL 101* 103* Scheduled medications acetaminophen, 975 mg, oral, TID chlorhexidine, , Topical, BID clindamycin, , Topical, BID enoxaparin, 40 mg, subcutaneous, q24h melatonin, 3 mg, oral, Nightly piperacillin-tazobactam, 3.375 g, intravenous, q6h polyethylene glycol, 17 g, oral, BID sennosides-docusate sodium, 2 tablet, oral, BID vancomycin, 1,500 mg, intravenous, q24h varenicline tartrate, 1 mg, oral, BID Continuous medications sodium chloride 0.9%, 200 mL/hr, Last Rate: 200 mL/hr (11/11/24 1138) PRN medications PRN medications: naloxone, ondansetron, oxyCODONE, oxyCODONE, vancomycin Results for orders placed or performed during the hospital encounter of 11/10/24 (from the past 24 hours) Lactate Result Value Ref Range Lactate 1.3 0.4 - 2.0 mmol/L Magnesium Result Value Ref Range Magnesium 1.96 1.60 - 2.40 mg/dL CBC and Auto Differential Result Value Ref Range WBC 11.0 4.4 - 11.3 x10*3/uL nRBC 0.0 0.0 - 0.0 /100 WBCs RBC 2.95 (L) 4.50 - 5.90 x10*6/uL Hemoglobin 8.3 (L) 13.5 - 17.5 g/dL Hematocrit 26.3 (L) 41.0 - 52.0 % MCV 89 80 - 100 fL MCH 28.1 26.0 - 34.0 pg MCHC 31.6 (L) 32.0 - 36.0 g/dL RDW 16.5 (H) 11.5 - 14.5 % Platelets 524 (H) 150 - 450 x10*3/uL Neutrophils % 69.6 40.0 - 80.0 % Immature Granulocytes %, Automated 0.4 0.0 - 0.9 % Lymphocytes % 13.3 13.0 - 44.0 % Monocytes % 11.8 2.0 - 10.0 % Eosinophils % 4.2 0.0 - 6.0 % Basophils % 0.7 0.0 - 2.0 % Neutrophils Absolute 7.67 1.20 - 7.70 x10*3/uL Immature Granulocytes Absolute, Automated 0.04 0.00 - 0.70 x10*3/uL Lymphocytes Absolute 1.46 1.20 - 4.80 x10*3/uL Monocytes Absolute 1.30 (H) 0.10 - 1.00 x10*3/uL Eosinophils Absolute 0.46 0.00 - 0.70 x10*3/uL Basophils Absolute 0.08 0.00 - 0.10 x10*3/uL Comprehensive Metabolic Panel Result Value Ref Range Glucose 101 (H) 74 - 99 mg/dL Sodium 139 136 - 145 mmol/L Potassium 3.8 3.5 - 5.3 mmol/L Chloride 108 (H) 98 - 107 mmol/L Bicarbonate 26 21 - 32 mmol/L Anion Gap 9 (L) 10 - 20 mmol/L Urea Nitrogen 11 6 - 23 mg/dL Creatinine 1.40 (H) 0.50 - 1.30 mg/dL eGFR 61 >60 mL/min/1.73m*2 Calcium 11.2 (H) 8.6 - 10.6 mg/dL Albumin 2.8 (L) 3.4 - 5.0 g/dL Alkaline Phosphatase 71 33 - 120 U/L Total Protein 5.6 (L) 6.4 - 8.2 g/dL AST 6 (L) 9 - 39 U/L Bilirubin, Total 0.3 0.0 - 1.2 mg/dL ALT 9 (L) 10 - 52 U/L Magnesium Result Value Ref Range Magnesium 1.98 1.60 - 2.40 mg/dL Vancomycin Result Value Ref Range Vancomycin 27.0 (H) 5.0 - 20.0 ug/mL Phosphorus Result Value Ref Range Phosphorus 2.7 2.5 - 4.9 mg/dL Assessment/Plan Kevan La is a 49 year old male with a PMH of refractory HS and gluteal abscess who is admitted to the hospital for gluteal wound abscess and HS. Endocrinology consulted for hypercalcemia. #Mild to moderate hypercalcemia - Non PTH mediated as PTH <6.3 - Most likely in the setting of immobility as patient reports that he's been bedbound since June - Calcium 11.2 today and improved from 11.8 yesterday, corrected calcium 12.2 and slightly improved from 12.5 yesterday - Continue NS @ 200 mL/hr - Pending further workup: PTHrP, SPEP/UPEP, 24 hour calcium, 1,25 Vitamin D - Continue to trend daily RFPs - Endocrinology will continue to monitor Nataly Colunga MD PGY-2 IM resident Cosigned by Cecile Marshall MD at 11/14/2024 9:28 AM EST Associated attestation - Cecile Marshall MD - 11/14/2024 9:28 AM EST I saw and evaluated the patient. I personally obtained the gomez and critical portions of the history and physical exam or was physically present for gomez and critical portions performed by the resident/fellow. I reviewed the resident/fellow's documentation and discussed the patient with the resident/fellow. I agree with the resident/fellow's medical decision making as documented in the note. Kevan La is a 49 y.o. male on day 1 of admission presenting with No Principal Problem: There is no principal problem currently on the Problem List. Please update the Problem List and refresh.. Subjective Pt is seen by the bedside. Reports more pain this AM and overnight. Has chronic right heel pain. No other complains. NPO since midnight in anticipation for poss. OR. Pt denies CP, SOB, lightheadedness, dizziness, abdominal pain, N/V. Objective 24 Hour Vitals Temp: [36.7 C (98.1 F)-37.1 C (98.8 F)] 36.7 C (98.1 F) Heart Rate: [67-80] 67 Resp: [16] 16 BP: (85-108)/(42-58) 108/55 Temp (24hrs), Av.9 C (98.5 F), Min:36.7 C (98.1 F), Max:37.1 C (98.8 F) 24 hour Intake/Output Intake/Output Summary (Last 24 hours) at 11/11/2024 1410 Last data filed at 11/11/2024 1233 Gross per 24 hour Intake 866.67 ml Output 3200 ml Net -2333.33 ml Exam: General: Resting in bed on his rigth side, appears in mild discomfort, but no acute distress. Well developed. Appears stated age. HEENT: Normocephalic and atraumatic. EOMI, sclera non-icteric Cardiovascular: RRR, no r/m/g Pulmonary: Lungs clear to auscultation bilaterally. No wheezes/ rhonchi/ rales GI: firm, but not rigid, non-tender : No Wallace cath Extremities: No LE edema. R hip skin is intact, no lesions, no bruising, non tender with heel squeeze. Skin: warm and dry. Large buttock wound, partially covered with clean dressing. Neurologic: CN II-XII grossly intact. Moving extremities spontaneously Psych: Pleasant. Appropriate mood and affect Labs CBC Results from last 72 hours Lab Units 11/11/24 0930 11/10/24 0530 WBC AUTO x10*3/uL 11.0 11.8* HEMOGLOBIN g/dL 8.3* 8.8* HEMATOCRIT % 26.3* 27.6* PLATELETS AUTO x10*3/uL 524* 570* BMP Results from last 72 hours Lab Units 11/11/24 0930 11/11/24 0558 11/10/24 0529 SODIUM mmol/L 139 -- 139 POTASSIUM mmol/L 3.8 -- 3.8 CHLORIDE mmol/L 108* -- 104 BUN mg/dL 11 -- 16 CREATININE mg/dL 1.40* -- 1.44* MAGNESIUM mg/dL 1.98 1.96 1.72 PHOSPHORUS mg/dL 2.7 -- -- Medications Scheduled Medications acetaminophen, 975 mg, oral, TID chlorhexidine, , Topical, BID clindamycin, , Topical, BID enoxaparin, 40 mg, subcutaneous, q24h melatonin, 3 mg, oral, Nightly piperacillin-tazobactam, 3.375 g, intravenous, q6h polyethylene glycol, 17 g, oral, BID sennosides-docusate sodium, 2 tablet, oral, BID vancomycin, 1,500 mg, intravenous, q24h varenicline tartrate, 1 mg, oral, BID Continuous Medications sodium chloride 0.9%, 200 mL/hr, Last Rate: 200 mL/hr (11/11/24 1138) PRN Medications PRN medications: naloxone, ondansetron, oxyCODONE, oxyCODONE, vancomycin Assessment/Plan Kevan La is a 49 y.o. male with refractory hidradenitis supprativa (HS) not responding to povorcitinib (RCT candidate), apremilast, isotretinoin, adalimumab, infliximab, moxifloxacin/metronidazole, minocyclin, clindamycin, rifampin, augmentin and doxycycline, transferred from [facility] regarding 14cm gluteal fluid collection. He was recently admitted for the same L. gluteal abscess which was 9.2 x 5.7 x 13.2cm in size s/p I&D. Pending speciation of culture he was discharged with a course of Unasyn per ID however returns due to gluteal pain and questionable sepsis, CT Pelvis at OSH with large ulcerative wound at the left buttock with an adjacent 14.9 cm enhancing mass involving the left gluteal muscles and overlying subcutaneous tissue, larger than CT in 08/2024, which may represent failure of current antibiotic regimen. On Vanc and Zosyn. ACS surgery engaged. Endocrinology engaged for hypercalcemia. Leukocytosis, thrombocytosis, hypercalcemia are improving. 11/11 Updates: - Blood Cx from [facility] neg x 2 days; tissue Cx was never collected @ [facility] - ACS recommends no surgical intervention - awaiting further recs from Endo and wound care - consulted Dermatology, awaiting recs #Gluteal wound s/p abscess I&D 10/13 #Refractory hidradenitis suppurativa #Deep tissue SSTI #Leukocytosis ::Patient with history of refractory HS having failed multiple modalities, now c/b gluteal abscess which he was admitted for 3 weeks ago s/p I&D, BCx with slackia exigua s/p Unasyn complete 10/28/2024 presenting to OSH with initial c/f sepsis found to have worsening gluteal abscess ::CT 11/08/2024: Large ulcerative wound at the left buttock with an adjacent 14.9 cm enhancing mass involving the left gluteal muscles and overlying subcutaneous tissue, larger than CT in 08/2024 ::BP 90/50 on admit here but per review of prior admission, pressures typically land in the mid 90s systolic ::WBC 13.9 on presentation, 11 this AM, improving ::Lactate 11/08: 1.2; 1.3 on 11/10 :: [facility] Blood Cx 11/08 NGTD; Wound Cx were ordered, but not collected :: Blood Cx 11/10 NGTD Plan: - continue to follow BCx from [facility] -> micro lab -> blood Cx - follow up wound care recs - Continue Topical Clindamycin BID - started Hibiclens BID - ID consult pending speciation - Holding home PO iron iso likely infection - Continue V/Z (11/08 - xx) - Pain: Tylenol TID, Oxy 5 Q4H prn mod pain and Oxy 10 Q6h prn severe pain - Last dose of Povorcitanib 10/10 - follow up Dermatology recs #Hypotension :: appears long standing on chart review, pt confirmed hx of low BPs :: normal TSH @ [facility] #Hypercalcemia, mild ::presented with CoCa 12.5; iCa 1.69; PTH <6.3 ::25-OH vit D 79 ::1.25-OH vit D, PTHrP, UPEP, SPEP, urine Ca pending ::TSH wnl at [facility] :: Endo following - follow UPEP, SPEP, urine 24 hr Ca, PTHrP, 1.25-OH vit D levels - continue 200 ml/hr NS #Nicotine Use - Continue home Chantix #Subacute PARUL ::Cr ~1.6 on last admission, 1.48 on admission to [facility] 11/08 > 1.42, prior Cr in 03/2023 was 1.2; Cr 1.44 on presentation to ::On prior admission was evaluated for this with normal UA, CT with no hydronephrosis, felt to be 2/2 NSAID use for HS ::A1c and UA normal on admission at [facility] :: FeUrea 48.2% (>35=> suggestive of intrinsic renal disease) - Avoid nephrotoxic drug, hypotension, sepsis, dehydration - Continuing to encourage oral hydration and treat hypercalcemia #Bladder Calculi ::Incidentally noted on CT Pelvis from OSH, asymptomatic, max diam is 1.5 cm #Anemia :: Hgb 10.4 at [facility], Hgb 8.8 on admission, 8.3 today - no evidence of bleeding, pt is HD stable (Bps are soft at baseline per pt), no tachycardia, no neurological changes - will maintain active type and screen Isa Turner MD college president, PGY-1 Cosigned by Claudio Plunkett MD at 11/11/2024 2:51 PM EST Associated attestation - Claudio Plunkett MD - 11/11/2024 2:51 PM EST I saw and evaluated the patient. I personally obtained the gomez and critical portions of the history and physical exam or was physically present for gomez and critical portions performed by the resident/fellow. I reviewed the resident/fellow's documentation and discussed the patient with the resident/fellow. I agree with the resident/fellow's medical decision making as documented in the note with the exception/addition of the following: is having pain control issues . Continuing iv antibiotics. Will consult dermatology today . Following calcium levels. Transitional Care Coordination Progress Note: Patient discussed during interdisciplinary rounds. Team members present: MIGUEL NIELSEN Plan per Medical/Surgical team: Gluteal abscess Payor: Veronica Discharge disposition: [facility] Potential Barriers: none ADOD: 3-4 days Per MD, pending plans from ACS. Updated notes sent to facility and requested update if patient will need precert to return. Will continue to monitor for discharge planning needs. Julisa GARZA, salt maker Coordinator (TCC) [phone] Pharmacy Admission Order Reconciliation Review Kevan La is a 49 y.o. male admitted for No Principal Problem: There is no principal problem currently on the Problem List. Please update the Problem List and refresh.. Pharmacy reviewed the patient's unreconciled admission medications. Prior to admission medications that were reviewed and acted on by the pharmacist include: Ibuprofen OTC Ensure Plus These medications have been reconciled. Any other unreconcilied medications have been addressed and will be ordered or held by the patient's medical team. Medications addressed by the pharmacist may be added or changed by the patient's medical team at any time. Ti Mays PharmD [address] [facility], Room# [address] [place] [address] Please reach out via Secure Chat for questions, or if no response call [facility] or [facility] Medication History Review Kevan La is a 49 y.o. male admitted for No Principal Problem: There is no principal problem currently on the Problem List. Please update the Problem List and refresh.. Pharmacy reviewed the patient's [id number] medications and allergies for accuracy. Medications ADDED Multivitamin Ibuprofen OTC 200 mg Ensure plus Medications CHANGED Miralax Medications REMOVED/NOT TAKING Alteplase 2 mg Leda-colace The list below reflects the updated QUALITY OFFICER list. Prior to Admission Medications Prescriptions Last Dose Informant acetaminophen (Tylenol) 325 mg tablet Self Sig: Take 3 tablets (975 mg) by mouth every 8 hours. cholecalciferol, vitamin D3, (VITAMIN D3 ORAL) Self Sig: Take 10,000 Units by mouth once daily. clindamycin (Cleocin T) 1 % gel Self Sig: Apply topically 2 times a day. Apply to left thigh around incision and drainage site, do not apply directly to surgery site ferrous sulfate 325 (65 Fe) MG EC tablet Self Sig: Take 1 tablet by mouth once daily with breakfast. Do not crush, chew, or split. ibuprofen 200 mg tablet Self Sig: Take 3 tablets (600 mg) by mouth every 6 hours if needed for mild pain (1 - 3). lactose-reduced food (ENSURE PLUS ORAL) Self Sig: Take by mouth once daily in the morning. mv-min/folic/K1/lycopen/lutein (MEN 50 PLUS MULTIVITAMIN ORAL) Self Sig: Take 1 tablet by mouth once daily. polyethylene glycol (Glycolax, Miralax) 17 gram packet Self Sig: Take 17 g by mouth once daily. Patient taking differently: Take 17 g by mouth once daily as needed (constipation). tiZANidine (Zanaflex) 2 mg tablet Self Sig: Take 1 tablet (2 mg) by mouth 3 times a day. varenicline tartrate (Chantix) 0.5 mg tablet Self Sig: Take 1 tablet (0.5 mg) by mouth 2 times a day for 4 days, THEN 2 tablets (1 mg) 2 times a day. Take with full glass of water.. Do not fill before October 22, 2024. Facility-Administered Medications: None The list below reflects the updated allergy list. Please review each documented allergy for additional clarification and justification. Allergies Reviewed by Yenny Burkett RN on 11/10/2024 No Known Allergies Patient accepts M2B at discharge. Pharmacy has been updated to [facility]. Sources [facility] Pharmacy dispense history Patient interview Good historian Chart Review Discharge summary 10/23/24 Additional Comments N/A Ti Mays, AlbertoD [facility] [id number] [facility], Room# [address] [id number] Please reach out via Secure Chat for questions, or if no response call [facility] or [facility] Vancomycin Dosing by Pharmacy- FOLLOW UP Kevan La is a 49 y.o. year old male who Pharmacy has been consulted for vancomycin dosing for cellulitis, skin and soft tissue. Based on the patient's indication and renal status this patient is being dosed based on a goal AUC of 400-600. Renal function is currently stable. Current vancomycin dose: 1000 mg given every 12 hours Estimated vancomycin AUC on current dose: 641 mg/L.hr Visit Vitals BP 108/55 (Patient Position: Lying) Pulse 67 Temp 36.7 C (98.1 F) (Temporal) Resp 16 Lab Results Component Value Date CREATININE 1.40 (H) 11/11/2024 CREATININE 1.44 (H) 11/10/2024 CREATININE 1.37 (H) 10/23/2024 CREATININE 1.43 (H) 10/22/2024 Patient weight is as follows: Vitals: 11/11/24 0942 Weight: 104 kg (230 lb) Cultures: No results found for the encounter in last 14 days. I/O last 3 completed shifts: In: 866.7 [I.V.:516.7; IV Piggyback:350] Out: 2375 [Urine:2375] I/O during current shift: No intake/output data recorded. Temp (24hrs), Av.9 C (98.5 F), Min:36.7 C (98.1 F), Max:37.1 C (98.8 F) Assessment/Plan Above goal AUC. Orders placed for new vancomcyin regimen of 1500 every 24 hours to begin at 2100. This dosing regimen is predicted by [employer] to result in the following pharmacokinetic parameters: Loading dose: N/A Regimen: 1500 mg IV every 24 hours. Start time: 06:40 on 11/12/2024 Exposure target: AUC24 (range)400-600 mg/L.hr [id number]: 500 mg/L.hr AUC24,ss: 488 mg/L.hr Probability of AUC24 > 400: 82 % Ctrough,ss: 12.2 mg/L Probability of Ctrough,ss > 20: 8 % The next level will be obtained on 11/13 at 0500. May be obtained sooner if clinically indicated. Will continue to monitor renal function daily while on vancomycin and order serum creatinine at least every 48 hours if not already ordered. Follow for continued vancomycin needs, clinical response, and signs/symptoms of toxicity. Alee Rios PharmD Kevan La is a 49 y.o. male on day 0 of admission presenting with No Principal Problem: There is no principal problem currently on the Problem List. Please update the Problem List and refresh.. Subjective Pt is seen by the bedside. Pain is adequately controlled. Reports two BM this AM after rectal suppository (had no BM x 7 days). No other complains. Pt denies CP, SOB, lightheadedness, dizziness, abdominal pain, N/V. Objective 24 Hour Vitals Temp: [36.7 C (98 F)-37.2 C (99 F)] 37 C (98.6 F) Heart Rate: [63-81] 81 Resp: [16-17] 17 BP: (91-107)/(47-55) 92/47 Temp (24hrs), Av C (98.6 F), Min:36.7 C (98 F), Max:37.2 C (99 F) 24 hour Intake/Output Intake/Output Summary (Last 24 hours) at 11/10/2024 1417 Last data filed at 11/10/2024 0542 Gross per 24 hour Intake -- Output 525 ml Net -525 ml Exam: General: Resting comfortably in bed on his side. Well developed, well nourished. Appears stated age. In no acute distress HEENT: Normocephalic and atraumatic. EOMI, sclera non-icteric Cardiovascular: RRR, no r/m/g Pulmonary: Lungs clear to auscultation bilaterally. No wheezes/ rhonchi/ rales GI: firm, but not rigid, non-tender : No Wallace cath Extremities: No LE edema Skin: warm and dry. Large buttock wound, covered with clean dressing. Neurologic: CN II-XII grossly intact. Moving extremities spontaneously Psych: Pleasant. Appropriate mood and affect Labs CBC Results from last 72 hours Lab Units 11/10/24 0530 WBC AUTO x10*3/uL 11.8* HEMOGLOBIN g/dL 8.8* HEMATOCRIT % 27.6* PLATELETS AUTO x10*3/uL 570* BMP Results from last 72 hours Lab Units 11/10/24 0529 SODIUM mmol/L 139 POTASSIUM mmol/L 3.8 CHLORIDE mmol/L 104 BUN mg/dL 16 CREATININE mg/dL 1.44* MAGNESIUM mg/dL 1.72 Medications Scheduled Medications acetaminophen, 975 mg, oral, TID clindamycin, , Topical, BID [Held by provider] enoxaparin, 40 mg, subcutaneous, q24h magnesium sulfate, 2 g, intravenous, Once melatonin, 3 mg, oral, Nightly piperacillin-tazobactam, 3.375 g, intravenous, q6h polyethylene glycol, 17 g, oral, BID sennosides-docusate sodium, 2 tablet, oral, BID vancomycin, 1,000 mg, intravenous, q12h varenicline tartrate, 1 mg, oral, BID Continuous Medications sodium chloride 0.9%, 200 mL/hr, Last Rate: 200 mL/hr (11/10/24 1330) PRN Medications PRN medications: naloxone, ondansetron, oxyCODONE, vancomycin Assessment/Plan Kevan La is a 49 y.o. male with refractory hidradenitis supprativa (HS) not responding to povorcitinib (RCT candidate), apremilast, isotretinoin, adalimumab, infliximab, moxifloxacin/metronidazole, minocyclin, clindamycin, rifampin, augmentin and doxycycline, transferred from [facility] regarding 14cm gluteal fluid collection. He was recently admitted for the same L. gluteal abscess which was 9.2 x 5.7 x 13.2cm in size s/p I&D. Pending speciation of culture he was discharged with a course of Unasyn per ID however returns due to gluteal pain and questionable sepsis, CT Pelvis at OSH with large ulcerative wound at the left buttock with an adjacent 14.9 cm enhancing mass involving the left gluteal muscles and overlying subcutaneous tissue, larger than CT in 08/2024, which may represent failure of current antibiotic regimen. On Vanc and Zosyn. ACS surgery engaged. Endocrinology engaged for new hypercalcemia. #Gluteal abscess s/p I&D 10/13 #Refractory hidradenitis suppurativa #Deep tissue SSTI #Leukocytosis ::Patient with history of refractory HS having failed multiple modalities, now c/b gluteal abscess which he was admitted for 3 weeks ago s/p I&D, BCx with slackia exigua s/p Unasyn complete 10/28/2024 presenting to OSH with initial c/f sepsis found to have worsening gluteal abscess ::CT 11/08/2024: Large ulcerative wound at the left buttock with an adjacent 14.9 cm enhancing mass involving the left gluteal muscles and overlying subcutaneous tissue, larger than CT in 08/2024 ::BP 90/50 on admit here but per review of prior admission, pressures typically land in the mid 90s systolic ::WBC 13.9 on presentation > 13 ::Lactate 11/08: 1.2 Plan: - Follow BCx and Wound Cx from [facility] [phone] micro lab - ACS Surgery consulted - Wound care consulted - ID consult pending speciation - Holding home PO iron iso likely active infection - Continue Topical Clindamycin BID - Continue V/Z (11/08 - xx) - Pain: Tylenol TID, Oxy 5 Q6H prn - Last dose of Povorcitanib 10/10, will need Derm follow-up nonurgently #Hypotension :: appears long standing on chart review, pt confirmed hx of low BPs :: normal TSH @ [facility] #Hypercalcemia, mild ::CoCa 12.5; iCa 1.69; PTH <6.3 ::25-OH vit D 79 ::1.25-OH vit D, PTHrP, UPEP, SPEP, urine Ca pending ::TSH wnl at [facility] - 1 L NS bolus given this AM, 200 ml/hr NS - PM RFP - Endo consulted, appreciate recommendations #Nicotine Use - Continue home Chantix #Subacute PARUL ::Cr ~1.6 on last admission, 1.48 on admission to [facility] 11/08 > 1.42, prior Cr in 03/2023 was 1.2; Cr 1.44 on presentation to ::On prior admission was evaluated for this with normal UA, CT with no hydronephrosis, felt to be 2/2 NSAID use for HS ::A1c and UA normal on admission at [facility] - Avoid nephrotoxic drug, hypotension, sepsis, dehydration - Continuing to encourage oral hydration #Bladder Calculi ::Incidentally noted on CT Pelvis from OSH, asymptomatic, max diam is 1.5 cm #Anemia :: Hgb 10.4 at [facility], Hgb 8.8 on admission - no evidence of bleeding, pt is HD stable (Bps are soft at baseline per pt), no tachycardia - will maintain active type and screen Isa Turner MD college president, PGY-1 Cosigned by Claudio Plunkett MD at 11/11/2024 10:38 AM EST Associated attestation - Claudio Plunkett MD - 11/11/2024 10:38 AM EST I saw and evaluated the patient. I personally obtained the gomez and critical portions of the history and physical exam or was physically present for gomez and critical portions performed by the resident/fellow. I reviewed the resident/fellow's documentation and discussed the patient with the resident/fellow. I agree with the resident/fellow's medical decision making as documented in the note with the exception/addition of the following: Continuing with iv antibiotics. ACS and Endocrinlogy consulted . Will ask Dermatology to see on Monday . 11/10/24904 Discharge Planning Living Arrangements Other (Comment) (Pt is from [facility]. Prior to his SNF stay, pt lived at home with his dog.) Support Systems Family members Assistance Needed Await PT/OT recommendations. Pt was at SNF for IV atbs and wound care. Type of Residence nursing home facility Do you have animals or pets at home? No (Pt sent his dog to stay with his brother in [place].) Home or Post Acute Services Post acute facilities (Rehab/SNF/etc) Type of Post Acute Facility Services nursing home Expected Discharge Disposition SNF Does the patient need discharge transport arranged? Yes RoundTrip coordination needed? Yes Has discharge transport been arranged? No Financial Resource Strain How hard is it for you to pay for the very basics like food, housing, medical care, and heating? Somewhat Housing Stability In the last 12 months, was there a time when you were not able to pay the mortgage or rent on time? N At any time in the past 12 months, were you homeless or living in a custodial (including now)? N Transportation Needs In the past 12 months, has lack of transportation kept you from medical appointments or from getting medications? no In the past 12 months, has lack of transportation kept you from meetings, work, or from getting things needed for daily living? No Patient Choice Patient / Family choosing to utilize agency / facility established prior to hospitalization Yes Intensity of Service Intensity of Service 0-30 min Assessment Note: Met with pt and introduced myself as floor care technician and member of the Care Transitions team for discharge planning. Pt was recently admitted from 10/10-10/23 for a gluteal abscess. Pt was discharged to [facility] (with pending Medicaid #[id number]) for IV atbs and wound care. Pt would like to return to [facility], if SNF is needed at discharge. Pt is currently receiving IV atbs, await PT/OT evaluations. Referral was sent to [facility] for return via [facility]. Prior to his SNF stay, pt was living at home alone. 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 Pt's address, phone number and contact information was verified, pt's brother Omkar was added. Email sent to the insurance DL to verify if pt's Medicaid is active. Pt does not have any other questions/concerns at this time. Aida VELASQUEZ, RN- Transitional Life Care Planner (TCC) [phone] documented in this encounter [facility] Work Phone: 11-27-2024 Hospital Discharge instructions Danna Soares MD - 11/27/2024 12:16 PM EDT Discharge Instructions Dear Kevan La, You were admitted to [facility] for your worsening gluteal wound and concern for infection. Interventional radiology and general surgery assessed the patient and said no procedures and interventions were indicated. Dermatology biopsied the lesions, which revealed squamous cell carcinoma with concern for metastasis. There was concern for worsening infection on 11/22 and you were restarted on antibiotics. Your elevated calcium levels were treated with IV pamidronate. The supportive oncology team closely followed you to manage your pain medication regimen. You were medically ready for discharge to your rehab facility on 11/27. Medication changes: please review this paperwork carefully START taking Augmentin on discharge for 1 month, and then stop Continue using the fentanyl patch (change once every 3 days) and the oxycodone 20mg as needed every 3 hours. We are sending you with a script for several days of patches/oxycodone. We are outlining in these instructions that you are to continue both pain medications at this dosing while you are at [facility]. The supportive oncology doctors will see you once you leave [facility] and will continue prescribing these medicines at that time. If you would like to pickle solution maker your medications from another pharmacy, ask your pharmacy to contact [facility] pharmacy to transfer over the prescriptions Appointments/Follow-Up: We have requested an automated system to call you to schedule; however if you do not hear from them in 3 days, please call [facility] appointment line: [phone] or to make the appointment yourself Dr. Jiang (oncology at [facility]) 11/29, 2:20pm Supportive oncology follow-up with Astrid Watson on 12/17 at 1pm Please call and schedule appointment with your primary care doctor within 2 week, tell them that patient was recently admitted to the hospital. If you need to establish with new primary care doctor, please call and schedule an appointment with [facility]: phone: [phone] Lab work needed: No need to make appointment or have prescription. Please go to any labs to complete below None It was a pleasure taking care of you, Your Care Team documented in this encounter [facility] Work Phone: 11-26-2024 Miscellaneous Notes The patient's goals for the shift include The clinical goals for the shift include Pt. pain will be controlled this shift [id number] Over the shift, the patient's pain has been managed with current medication regimen. The patient's goals for the shift include The clinical goals for the shift include Pt will rate pain less than 5 out of 10 throuhgout shift. Over the shift, the patient did not make progress toward the following goals. Barriers to progression include . Recommendations to address these barriers include Problem: Skin Goal: Decreased wound size/increased tissue granulation at next dressing change Outcome: Progressing Goal: Participates in plan/prevention/treatment measures Outcome: Progressing Goal: Prevent/manage excess moisture Outcome: Progressing Goal: Prevent/minimize sheer/friction injuries Outcome: Progressing Goal: Promote/optimize nutrition Outcome: Progressing Goal: Promote skin healing Outcome: Progressing Problem: Fall/Injury Goal: Not fall by end of shift Outcome: Progressing Goal: Be free from injury by end of the shift Outcome: Progressing Goal: Verbalize understanding of personal risk factors for fall in the hospital Outcome: Progressing Goal: Verbalize understanding of risk factor reduction measures to prevent injury from fall in the home Outcome: Progressing Goal: Use assistive devices by end of the shift Outcome: Progressing Goal: Pace activities to prevent fatigue by end of the shift Outcome: Progressing Problem: Pain Goal: Takes deep breaths with improved pain control throughout the shift Outcome: Progressing Goal: Turns in bed with improved pain control throughout the shift Outcome: Progressing Goal: Walks with improved pain control throughout the shift Outcome: Progressing Goal: Performs ADL's with improved pain control throughout shift Outcome: Progressing Goal: Participates in PT with improved pain control throughout the shift Outcome: Progressing Goal: Free from opioid side effects throughout the shift Outcome: Progressing Goal: Free from acute confusion related to pain meds throughout the shift Outcome: Progressing Problem: Safety - Adult Goal: Free from fall injury Outcome: Progressing Problem: Nutrition Goal: Nutrient intake appropriate for maintaining nutritional needs Outcome: Progressing . SUPPORTIVE AND PALLIATIVE ONCOLOGY INPATIENT SIGNIFICANT EVENT NOTE SERVICE DATE: 11/25/2024 Interval Events: Reviewed chart, labs, medications and discussed patient case with supportive oncology DIVISION OPERATIONS MANAGER, Omaira Clayton APRN and primary team. Patient with ongoing frequent PRN opioid requirements and suboptimally controlled pain. Plans for upcoming discharge. 24H Opioid Requirements Past 24h opioid requirements (11/24-11/25, [id number]): Fentanyl 50 mcg/h TD patch x 1 = 100 OME Oxycodone IR 15 mg PO x 4 = 60 mg = 75 OME Hydromorphone 1mg IV x 2 = 2 mg = 25 OME Total 24h OME use: 200 mg OME ASSESSMENT/PLAN: Kevan La is a 49 y.o. male with peripheral nodule and tissue SCC (primary vs metastatic lesion). PMHx significant for refractory hidradenitis supprativa (HS). Admitted 11/10/2024 for further evaluation and management of 14cm gluteal fluid collection (previously s/p I&D September 2024 at ). Supportive and Palliative Oncology is consulted for pain management. Neoplasm Related Pain L gluteal pain 2/2 known malignancy. Nociceptive somatic pain with possible neuropathic component; suboptimally controlled Home regimen: oxycodone IR 5mg q6h PRN Renal and hepatic function WNL. Given frequent PRN opioid requirements and subtherapeutic pain control, expect patient to benefit and tolerate from escalation in opioid regimen. Recommend: Increase fentanyl patch to 75 mcg/h Q72H (last increased 11/20/24) Discontinue oxycodone IR 10 and 15 mg PO Q3H PRN moderate or severe pain Start oxycodone IR 20 mg PO Q3H PRN moderate or severe pain Continue hydromorphone 1 mg IV Q2H PRN for breakthrough pain - will re-address tomorrow, 11/26 Continue acetaminophen 975 mg PO Q8H, scheduled Continue gabapentin 300 mg PO nightly Some elements copied from Eugenia ling on 11/22/24, the elements have been updated and all reflect current decision making from today, 11/22/24 Disposition: Please start the process of having prior authorization with meds to beds deliver medications to patient prior to discharge via [facility] pharmacy. Prescriptions will need to be sent 48-72 hours prior to discharge so that a prior authorization can be completed. Discharge date: unknown pending acute issues Referral for our Outpatient Supportive Oncology team sent on 11/25 - patient to follow with Oncology (Dr. Jiang) per primary team Thank you for asking Supportive and Palliative Oncology to assist with care of this patient. Please contact us for additional questions or concerns. SIGNATURE: Nellie Douglass PharmD Palliative Medicine Clinical Drum Tender Supportive Oncology Services PAGER/CONTACT: Contact information: Supportive and Palliative Oncology Monday-Monday 8 AM-5 PM [email or web address] Secure chat or pager [phone]. After hours and weekends: pager [phone] Cosigned by TRAVIS Pinzon at 11/25/2024 1:08 PM EDT Electronically signed by Nellie Douglass [facility] at 11/25/2024 1:03 PM EDT Associated attestation - Omaira Clayton APRN-CNP - 11/25/2024 1:08 PM EDT I was present with or discussed this patient with the Supportive Oncology PharmD. I have personally seen and re-examined the patient and performed the medical decision-making components (assessment and plan of care). I have reviewed the pharmacist's documentation and verified the findings in the note as written with additions or exceptions as stated in the body of this note. We gave primary team curb-sided recommendations to assist with better symptom management of patient. Outpatient supportive oncology referral was equally sent Signature and billing: Thank you for allowing us to participate in the care of this patient. Recommendations will be communicated back to the consulting service by way of shared electronic medical record or [id number]. Medical complexity was high level due to due to complexity of problems, extensive data review, and high risk of management/treatment. I spent 15 minutes in the care of this patient which included chart review, interviewing patient/family, discussion with primary team, coordination of care, and documentation. TRAVIS Pinzon PATIENT: KEVAN LA : 1975 ADMIT DATE: 11/10/2024 3:29 AM DISCH DATE: RESPONDING PROVIDER #: [id number] PROVIDER RESPONSE TEXT: 11/15 punch biopsy taken from L buttock CDI QUERY TEXT: Clarification Instruction: Based on your assessment of the patient and the clinical information, please provide the requested documentation by clicking on the appropriate radio button and enter any additional information if prompted. Question: In reviewing the operative note for this patient, certain crucial elements for coding are absent location of punch biopsy When answering this query, please exercise your independent professional judgment. The fact that a question is being asked, does not imply that any particular answer is desired or expected. The patient's clinical indicators include: Clinical Information: 11/15 Procedure Note indicates biopsy for skin lesion: Pre/Post op diagnosis "squamous cell carcinoma vs. Chronic HS wound" Locations: Specimen A: Ulcer proximal B: Ulcer distal" This query refers to the procedure performed on 11/15/2024 Options provided: -- 11/15 punch biopsy taken from L buttock -- 11/15 punch biopsy taken from L thigh -- 11/15 punch biopsy taken from other site,, Please specify additional detail below -- Other - I will add my own diagnosis -- Refer to Clinical Documentation Reviewer Query created by: Dara Matos on 11/22/2024 12:50 PM Electronically signed by: BRIGITTE COY MD 11/25/2024 12:38 PM PATIENT: KEVAN LA : 1975 ADMIT DATE: 11/10/2024 3:29 AM DISCH DATE: RESPONDING PROVIDER #: [id number] PROVIDER RESPONSE TEXT: 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 Question: Is there a diagnosis indicative of the lab values and clinical indicators When answering this query, please exercise your independent professional judgment. The fact that a question is being asked, does not imply that any particular answer is desired or expected. The patient's clinical indicators include: Clinical Information: 11/21 PN: 49 YOM w/PMH s/f refractory hidradenitis supprativa. 11/12 and 11/15 nodules on L buttock and L thigh biopsied by dermatology. Clinical Indicators: 11/12 punch bx of L buttock and L thigh with no EBL noted 11/13 SEN "Hgb 4.9", "No clear source of bleeding identified", Repeat Hgb 8.2. Suspect dilution of previous blood samples with NS gtt" 11/13 DCN "Moderate malnutrition" 11/14 Hematology consult "notable for normocytic anemia, labs do show folate deficiency" 11/19 "L gluteal SCC iso chronic HS-associated wound and SCC of L thigh (likely a metastatic lesion)" 11/21 "Normocytic Anemia", "Folate Deficiency" "continue folate supplementation" 11/11 Folate 4.6 11/12 punch biopsy shows invasive squamous cell carcinoma 11/10 Hgb 8.8 11/13 Hgb 8.3, 4.9, 8.2 Treatment: Monitor labwork. Folate supplementation. Risk Factors: Squamous cell carcinoma. Malnutrition. Anemia. 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 -- Normocytic anemia -- Other - I will add my own diagnosis -- Refer to Clinical Documentation Reviewer Query created by: Dara Matos on 11/22/2024 12:32 PM Electronically signed by: ISA TURNER MD 11/25/2024 10:32 AM The patient's goals for the shift include The clinical goals for the shift include pt will rate pain as decreased/ comfortable following PRN interventions this shift Problem: Skin Goal: Participates in plan/prevention/treatment measures Outcome: Progressing Note: Pt will participate in BID dressing changes Goal: Prevent/manage excess moisture Outcome: Progressing Flowsheets (Taken 11/25/2024 0156) Prevent/manage excess moisture: Monitor for/manage infection if present Note: Skin care/ dressing changes as ordered Goal: Promote skin healing Outcome: Progressing Problem: Fall/Injury Goal: Not fall by end of shift Outcome: Progressing Goal: Be free from injury by end of the shift Outcome: Progressing Problem: Pain Goal: Takes deep breaths with improved pain control throughout the shift Outcome: Progressing Goal: Turns in bed with improved pain control throughout the shift Outcome: Progressing Goal: Free from opioid side effects throughout the shift Outcome: Progressing Problem: Pain - Adult Goal: Verbalizes/displays adequate comfort level or baseline comfort level Outcome: Progressing Problem: Safety - Adult Goal: Free from fall injury Outcome: Progressing Problem: Discharge Planning Goal: Discharge to home or other facility with appropriate resources Outcome: Progressing Problem: Chronic Conditions and Co-morbidities Goal: Patient's chronic conditions and co-morbidity symptoms are monitored and maintained or improved Outcome: Progressing Problem: Nutrition Goal: Nutrient intake appropriate for maintaining nutritional needs Outcome: Progressing The patient's goals for the shift include The clinical goals for the shift include pain management The patient's goals for the shift include The clinical goals for the shift include Pain management Problem: Skin Goal: Decreased wound size/increased tissue granulation at next dressing change Outcome: Progressing Goal: Participates in plan/prevention/treatment measures Outcome: Progressing Goal: Prevent/manage excess moisture Outcome: Progressing Goal: Prevent/minimize sheer/friction injuries Outcome: Progressing Goal: Promote/optimize nutrition Outcome: Progressing Goal: Promote skin healing Outcome: Progressing Problem: Fall/Injury Goal: Not fall by end of shift Outcome: Progressing Goal: Be free from injury by end of the shift Outcome: Progressing Goal: Verbalize understanding of personal risk factors for fall in the hospital Outcome: Progressing Goal: Verbalize understanding of risk factor reduction measures to prevent injury from fall in the home Outcome: Progressing Goal: Use assistive devices by end of the shift Outcome: Progressing Goal: Pace activities to prevent fatigue by end of the shift Outcome: Progressing The clinical goals for the shift include Pain management Problem: Skin Goal: Decreased wound size/increased tissue granulation at next dressing change Outcome: Progressing Flowsheets (Taken 11/24/2024110) Decreased wound size/increased tissue granulation at next dressing change: Promote sleep for wound healing Goal: Participates in plan/prevention/treatment measures Outcome: Progressing Flowsheets (Taken 11/24/2024110) Participates in plan/prevention/treatment measures: Discuss with provider PT/OT consult Elevate heels Goal: Prevent/manage excess moisture Outcome: Progressing Flowsheets (Taken 11/24/2024110) Prevent/manage excess moisture: Cleanse incontinence/protect with barrier cream Moisturize dry skin Goal: Prevent/minimize sheer/friction injuries Outcome: Progressing Flowsheets (Taken 11/24/2024110) Prevent/minimize sheer/friction injuries: HOB 30 degrees or less Turn/reposition every 2 hours/use positioning/transfer devices Goal: Promote/optimize nutrition Outcome: Progressing Flowsheets (Taken 11/24/2024110) Promote/optimize nutrition: Monitor/record intake including meals Goal: Promote skin healing Outcome: Progressing Flowsheets (Taken 11/24/2024110) Promote skin healing: Assess skin/pad under line(s)/device(s) Problem: Fall/Injury Goal: Not fall by end of shift Outcome: Progressing Goal: Be free from injury by end of the shift Outcome: Progressing Goal: Verbalize understanding of personal risk factors for fall in the hospital Outcome: Progressing Goal: Verbalize understanding of risk factor reduction measures to prevent injury from fall in the home Outcome: Progressing Goal: Use assistive devices by end of the shift Outcome: Progressing Goal: Pace activities to prevent fatigue by end of the shift Outcome: Progressing Problem: Pain Goal: Takes deep breaths with improved pain control throughout the shift Outcome: Progressing Goal: Turns in bed with improved pain control throughout the shift Outcome: Progressing Goal: Walks with improved pain control throughout the shift Outcome: Progressing Goal: Performs ADL's with improved pain control throughout shift Outcome: Progressing Goal: Participates in PT with improved pain control throughout the shift Outcome: Progressing Goal: Free from opioid side effects throughout the shift Outcome: Progressing Goal: Free from acute confusion related to pain meds throughout the shift Outcome: Progressing Problem: Pain - Adult Goal: Verbalizes/displays adequate comfort level or baseline comfort level Outcome: Progressing Problem: Safety - Adult Goal: Free from fall injury Outcome: Progressing Problem: Discharge Planning Goal: Discharge to home or other facility with appropriate resources Outcome: Progressing Problem: Chronic Conditions and Co-morbidities Goal: Patient's chronic conditions and co-morbidity symptoms are monitored and maintained or improved Outcome: Progressing Problem: Nutrition Goal: Nutrient intake appropriate for maintaining nutritional needs Outcome: Progressing The patient's goals for the shift include The clinical goals for the shift include Pts pain will be managed throughout shift Problem: Skin Goal: Decreased wound size/increased tissue granulation at next dressing change 11/23/2024 1500 by Lily Mario RN Flowsheets (Taken 11/23/2024 1500) Decreased wound size/increased tissue granulation at next dressing change: Promote sleep for wound healing 11/23/2024 1500 by Lily Mario RN Outcome: Progressing Flowsheets (Taken 11/23/2024 1500) Decreased wound size/increased tissue granulation at next dressing change: Promote sleep for wound healing Goal: Participates in plan/prevention/treatment measures Outcome: Progressing Goal: Prevent/manage excess moisture Outcome: Progressing Goal: Prevent/minimize sheer/friction injuries Outcome: Progressing Goal: Promote/optimize nutrition Outcome: Progressing Goal: Promote skin healing Outcome: Progressing The patient's goals for the shift include The clinical goals for the shift include Pts pain will be managed throughout shift Problem: Skin Goal: Decreased wound size/increased tissue granulation at next dressing change Outcome: Progressing Goal: Participates in plan/prevention/treatment measures Outcome: Progressing Goal: Prevent/manage excess moisture Outcome: Progressing Goal: Prevent/minimize sheer/friction injuries Outcome: Progressing Goal: Promote/optimize nutrition Outcome: Progressing Goal: Promote skin healing Outcome: Progressing Problem: Fall/Injury Goal: Not fall by end of shift Outcome: Progressing Goal: Be free from injury by end of the shift Outcome: Progressing Goal: Verbalize understanding of personal risk factors for fall in the hospital Outcome: Progressing Goal: Verbalize understanding of risk factor reduction measures to prevent injury from fall in the home Outcome: Progressing Goal: Use assistive devices by end of the shift Outcome: Progressing Goal: Pace activities to prevent fatigue by end of the shift Outcome: Progressing Problem: Safety - Adult Goal: Free from fall injury Outcome: Progressing Problem: Chronic Conditions and Co-morbidities Goal: Patient's chronic conditions and co-morbidity symptoms are monitored and maintained or improved Outcome: Progressing Problem: Nutrition Goal: Nutrient intake appropriate for maintaining nutritional needs Outcome: Progressing The clinical goals for the shift include Pts pain will be managed throughout shift Problem: Skin Goal: Decreased wound size/increased tissue granulation at next dressing change Outcome: Progressing Flowsheets (Taken 11/23/2024 015) Decreased wound size/increased tissue granulation at next dressing change: Promote sleep for wound healing Goal: Participates in plan/prevention/treatment measures Outcome: Progressing Flowsheets (Taken 11/23/2024 015) Participates in plan/prevention/treatment measures: Discuss with provider PT/OT consult Elevate heels Goal: Prevent/manage excess moisture Outcome: Progressing Flowsheets (Taken 11/23/2024150) Prevent/manage excess moisture: Cleanse incontinence/protect with barrier cream Moisturize dry skin Goal: Prevent/minimize sheer/friction injuries Outcome: Progressing Flowsheets (Taken 11/23/2024150) Prevent/minimize sheer/friction injuries: HOB 30 degrees or less Turn/reposition every 2 hours/use positioning/transfer devices Goal: Promote/optimize nutrition Outcome: Progressing Flowsheets (Taken 11/23/2024150) Promote/optimize nutrition: Monitor/record intake including meals Goal: Promote skin healing Outcome: Progressing Flowsheets (Taken 11/23/2024150) Promote skin healing: Assess skin/pad under line(s)/device(s) Problem: Fall/Injury Goal: Not fall by end of shift Outcome: Progressing Goal: Be free from injury by end of the shift Outcome: Progressing Goal: Verbalize understanding of personal risk factors for fall in the hospital Outcome: Progressing Goal: Verbalize understanding of risk factor reduction measures to prevent injury from fall in the home Outcome: Progressing Goal: Use assistive devices by end of the shift Outcome: Progressing Goal: Pace activities to prevent fatigue by end of the shift Outcome: Progressing Problem: Pain Goal: Takes deep breaths with improved pain control throughout the shift Outcome: Progressing Goal: Turns in bed with improved pain control throughout the shift Outcome: Progressing Goal: Walks with improved pain control throughout the shift Outcome: Progressing Goal: Performs ADL's with improved pain control throughout shift Outcome: Progressing Goal: Participates in PT with improved pain control throughout the shift Outcome: Progressing Goal: Free from opioid side effects throughout the shift Outcome: Progressing Goal: Free from acute confusion related to pain meds throughout the shift Outcome: Progressing Problem: Pain - Adult Goal: Verbalizes/displays adequate comfort level or baseline comfort level Outcome: Progressing Problem: Safety - Adult Goal: Free from fall injury Outcome: Progressing Problem: Discharge Planning Goal: Discharge to home or other facility with appropriate resources Outcome: Progressing Problem: Chronic Conditions and Co-morbidities Goal: Patient's chronic conditions and co-morbidity symptoms are monitored and maintained or improved Outcome: Progressing Problem: Nutrition Goal: Nutrient intake appropriate for maintaining nutritional needs Outcome: Progressing The patient's goals for the shift include The clinical goals for the shift include wound care Problem: Skin Goal: Decreased wound size/increased tissue granulation at next dressing change 11/22/2024 1142 by Christine Moore RN Outcome: Progressing Problem: Skin Goal: Participates in plan/prevention/treatment measures 11/22/2024 1142 by Christine Moore RN Outcome: Progressing Problem: Skin Goal: Prevent/manage excess moisture 11/22/2024 1142 by Christine Moore RN Outcome: Progressing Problem: Skin Goal: Prevent/minimize sheer/friction injuries 11/22/2024 1142 by Christine Moore RN Outcome: Progressing Problem: Skin Goal: Promote/optimize nutrition 11/22/2024 1142 by Christine Moore RN Outcome: Progressing Problem: Skin Goal: Promote skin healing 11/22/2024 1142 by Christine Moore RN Outcome: Progressing The patient's goals for the shift include The clinical goals for the shift include wound care Problem: Skin Goal: Decreased wound size/increased tissue granulation at next dressing change Outcome: Progressing Goal: Participates in plan/prevention/treatment measures Outcome: Progressing Goal: Prevent/manage excess moisture Outcome: Progressing Goal: Prevent/minimize sheer/friction injuries Outcome: Progressing Goal: Promote/optimize nutrition Outcome: Progressing Goal: Promote skin healing Outcome: Progressing Problem: Fall/Injury Goal: Not fall by end of shift Outcome: Progressing Goal: Be free from injury by end of the shift Outcome: Progressing Goal: Verbalize understanding of personal risk factors for fall in the hospital Outcome: Progressing Goal: Verbalize understanding of risk factor reduction measures to prevent injury from fall in the home Outcome: Progressing Goal: Use assistive devices by end of the shift Outcome: Progressing Goal: Pace activities to prevent fatigue by end of the shift Outcome: Progressing Problem: Pain Goal: Takes deep breaths with improved pain control throughout the shift Outcome: Progressing Goal: Turns in bed with improved pain control throughout the shift Outcome: Progressing Goal: Walks with improved pain control throughout the shift Outcome: Progressing Goal: Performs ADL's with improved pain control throughout shift Outcome: Progressing Goal: Participates in PT with improved pain control throughout the shift Outcome: Progressing Goal: Free from opioid side effects throughout the shift Outcome: Progressing Goal: Free from acute confusion related to pain meds throughout the shift Outcome: Progressing Problem: Pain - Adult Goal: Verbalizes/displays adequate comfort level or baseline comfort level Outcome: Progressing Problem: Safety - Adult Goal: Free from fall injury Outcome: Progressing Problem: Discharge Planning Goal: Discharge to home or other facility with appropriate resources Outcome: Progressing Problem: Chronic Conditions and Co-morbidities Goal: Patient's chronic conditions and co-morbidity symptoms are monitored and maintained or improved Outcome: Progressing Problem: Nutrition Goal: Nutrient intake appropriate for maintaining nutritional needs Outcome: Progressing Problem: Skin Goal: Decreased wound size/increased tissue granulation at next dressing change Outcome: Progressing Goal: Participates in plan/prevention/treatment measures Outcome: Progressing Goal: Prevent/manage excess moisture Outcome: Progressing Goal: Prevent/minimize sheer/friction injuries Outcome: Progressing Goal: Promote/optimize nutrition Outcome: Progressing Goal: Promote skin healing Outcome: Progressing Problem: Fall/Injury Goal: Not fall by end of shift Outcome: Progressing Goal: Be free from injury by end of the shift Outcome: Progressing Goal: Verbalize understanding of personal risk factors for fall in the hospital Outcome: Progressing Goal: Verbalize understanding of risk factor reduction measures to prevent injury from fall in the home Outcome: Progressing Goal: Use assistive devices by end of the shift Outcome: Progressing Goal: Pace activities to prevent fatigue by end of the shift Outcome: Progressing The patient's goals for the shift include The clinical goals for the shift include Patient will remain safe by the end of the shfit The patient's goals for the shift include pain control The clinical goals for the shift include Patient will remain safe by the end of the shfit Over the shift, the patient did make progress toward the following goals. Problem: Skin Goal: Decreased wound size/increased tissue granulation at next dressing change Outcome: Progressing Flowsheets (Taken 11/20/20241812) Decreased wound size/increased tissue granulation at next dressing change: Promote sleep for wound healing Goal: Participates in plan/prevention/treatment measures Outcome: Progressing Flowsheets (Taken 11/20/20241812) Participates in plan/prevention/treatment measures: Discuss with provider PT/OT consult Elevate heels Goal: Prevent/manage excess moisture Outcome: Progressing Flowsheets (Taken 11/20/20241812) Prevent/manage excess moisture: Cleanse incontinence/protect with barrier cream Goal: Prevent/minimize sheer/friction injuries Outcome: Progressing Flowsheets (Taken 11/20/20241812) Prevent/minimize sheer/friction injuries: Use pull sheet Goal: Promote/optimize nutrition Outcome: Progressing Flowsheets (Taken 11/20/20241812) Promote/optimize nutrition: Monitor/record intake including meals Goal: Promote skin healing Outcome: Progressing Flowsheets (Taken 11/20/20241812) Promote skin healing: Assess skin/pad under line(s)/device(s) Problem: Fall/Injury Goal: Not fall by end of shift Outcome: Progressing Goal: Be free from injury by end of the shift Outcome: Progressing Goal: Verbalize understanding of personal risk factors for fall in the hospital Outcome: Progressing Goal: Verbalize understanding of risk factor reduction measures to prevent injury from fall in the home Outcome: Progressing Goal: Use assistive devices by end of the shift Outcome: Progressing Goal: Pace activities to prevent fatigue by end of the shift Outcome: Progressing Problem: Pain Goal: Takes deep breaths with improved pain control throughout the shift Outcome: Progressing Goal: Turns in bed with improved pain control throughout the shift Outcome: Progressing Goal: Walks with improved pain control throughout the shift Outcome: Progressing Goal: Performs ADL's with improved pain control throughout shift Outcome: Progressing Goal: Participates in PT with improved pain control throughout the shift Outcome: Progressing Goal: Free from opioid side effects throughout the shift Outcome: Progressing Goal: Free from acute confusion related to pain meds throughout the shift Outcome: Progressing Problem: Pain - Adult Goal: Verbalizes/displays adequate comfort level or baseline comfort level Outcome: Progressing Problem: Safety - Adult Goal: Free from fall injury Outcome: Progressing Problem: Discharge Planning Goal: Discharge to home or other facility with appropriate resources Outcome: Progressing Problem: Chronic Conditions and Co-morbidities Goal: Patient's chronic conditions and co-morbidity symptoms are monitored and maintained or improved Outcome: Progressing Problem: Nutrition Goal: Nutrient intake appropriate for maintaining nutritional needs Outcome: Progressing The patient's goals for the shift include The clinical goals for the shift include pt will sleep 4 hours during the night Pt had some sleep during the night but pain persists, waking him up. Kevan La is a 49 y.o. male with PMHx of HS that is refractory and unresponsive to multiple treatments was transferred from [facility] due to gluteal abscess, for which he has been hospitalized and had I&D previously. Imaging is also notable for a enhancing mass that is involving the left gluteus that has progressed from prior imaging in 08/2024. He is readmitted 11/10 for gluteal wound with concern for rapid disease progression now s/p biopsy revealing squamous cell carcinoma. During hospitalization, pt found to have asymptomatic hypercalcemia with low PTH. Hypercalcemia work up included myeloma labs, which showed 0.2 g/dL monoclonal free lambda light chains in beta region. PTHrp resulted elevated 12. Hematology was consulted for abnormal SPEP. IgG and IgM wnl. IgA elevated. FLC pending. Renal function appears at baseline. Anemia present but in the setting of chronic inflammation and folate deficiency. Hypercalcemia is PTHrp driven, could be from newly diagnosed squamous cell carcinoma. Recommendations: - follow up free light chains. If abnormal, please call us back - Place outpatient order for referral to hematology for follow up of MGUS - if any additional debridement or biopsies planned, please send to heme path to rule out AL amyloidosis Thanks for the consult, we will sign off. Discussed with Dr. Rodriguez. Adelina Forte MD Hematology-Oncology Fellow, PGY4 Hematology Consult Pager: [phone] Problem: Skin Goal: Decreased wound size/increased tissue granulation at next dressing change Outcome: Progressing Goal: Participates in plan/prevention/treatment measures Outcome: Progressing Goal: Prevent/manage excess moisture Outcome: Progressing Goal: Prevent/minimize sheer/friction injuries Outcome: Progressing Goal: Promote/optimize nutrition Outcome: Progressing Goal: Promote skin healing Outcome: Progressing Problem: Fall/Injury Goal: Not fall by end of shift Outcome: Progressing Goal: Be free from injury by end of the shift Outcome: Progressing Goal: Verbalize understanding of personal risk factors for fall in the hospital Outcome: Progressing Goal: Verbalize understanding of risk factor reduction measures to prevent injury from fall in the home Outcome: Progressing Goal: Use assistive devices by end of the shift Outcome: Progressing Goal: Pace activities to prevent fatigue by end of the shift Outcome: Progressing Problem: Pain Goal: Takes deep breaths with improved pain control throughout the shift Outcome: Progressing Goal: Turns in bed with improved pain control throughout the shift Outcome: Progressing Goal: Walks with improved pain control throughout the shift Outcome: Progressing Goal: Performs ADL's with improved pain control throughout shift Outcome: Progressing Goal: Participates in PT with improved pain control throughout the shift Outcome: Progressing Goal: Free from opioid side effects throughout the shift Outcome: Progressing Goal: Free from acute confusion related to pain meds throughout the shift Outcome: Progressing The patient's goals for the shift include The clinical goals for the shift include Pain management The clinical goals for the shift include Pain management Problem: Skin Goal: Decreased wound size/increased tissue granulation at next dressing change Outcome: Progressing Flowsheets (Taken 11/19/202455) Decreased wound size/increased tissue granulation at next dressing change: Promote sleep for wound healing Goal: Participates in plan/prevention/treatment measures Outcome: Progressing Flowsheets (Taken 11/19/202455) Participates in plan/prevention/treatment measures: Elevate heels Goal: Prevent/manage excess moisture Outcome: Progressing Flowsheets (Taken 11/19/202455) Prevent/manage excess moisture: Cleanse incontinence/protect with barrier cream Moisturize dry skin Follow provider orders for dressing changes Goal: Prevent/minimize sheer/friction injuries Outcome: Progressing Flowsheets (Taken 11/19/202455) Prevent/minimize sheer/friction injuries: Increase activity/out of bed for meals HOB 30 degrees or less Turn/reposition every 2 hours/use positioning/transfer devices Goal: Promote/optimize nutrition Outcome: Progressing Flowsheets (Taken 11/19/202455) Promote/optimize nutrition: Offer water/supplements/favorite foods Goal: Promote skin healing Outcome: Progressing Flowsheets (Taken 11/19/202455) Promote skin healing: Protective dressings over bony prominences Turn/reposition every 2 hours/use positioning/transfer devices Problem: Fall/Injury Goal: Not fall by end of shift Outcome: Progressing Goal: Be free from injury by end of the shift Outcome: Progressing Goal: Verbalize understanding of personal risk factors for fall in the hospital Outcome: Progressing Goal: Verbalize understanding of risk factor reduction measures to prevent injury from fall in the home Outcome: Progressing Goal: Use assistive devices by end of the shift Outcome: Progressing Goal: Pace activities to prevent fatigue by end of the shift Outcome: Progressing Problem: Pain Goal: Takes deep breaths with improved pain control throughout the shift Outcome: Progressing Goal: Turns in bed with improved pain control throughout the shift Outcome: Progressing Goal: Walks with improved pain control throughout the shift Outcome: Progressing Goal: Performs ADL's with improved pain control throughout shift Outcome: Progressing Goal: Participates in PT with improved pain control throughout the shift Outcome: Progressing Goal: Free from opioid side effects throughout the shift Outcome: Progressing Goal: Free from acute confusion related to pain meds throughout the shift Outcome: Progressing Problem: Pain - Adult Goal: Verbalizes/displays adequate comfort level or baseline comfort level Outcome: Progressing Problem: Safety - Adult Goal: Free from fall injury Outcome: Progressing Problem: Discharge Planning Goal: Discharge to home or other facility with appropriate resources Outcome: Progressing Problem: Chronic Conditions and Co-morbidities Goal: Patient's chronic conditions and co-morbidity symptoms are monitored and maintained or improved Outcome: Progressing Problem: Nutrition Goal: Nutrient intake appropriate for maintaining nutritional needs Outcome: Progressing Kevan La is a 49 y.o. man with refractory hidradenitis supprativa transferred from [facility] on 11/10/24 with worsening chronic gluteal wound and hypotension. Pt presented to with soft Bps, asymptomatic hypercalcemia and subacute PARUL. Pt was evaluated by IR and Gen surgery, no immediate surgical interventions or procedures were recommended. Dermatology evaluated the pt, and several biopsies were performed on 11/12 and 11/15 revealing invasive SCC. The biopsy of the left thigh nodule next to the main wound (11/12) showed squamous cell carcinoma w/o epidermal attachment, favoring metastatic cutaneous lesion. The two biopsies from the main wound (11/15) both demonstrated invasive SCC carcinoma well and well to moderately differentiated, both without epidermal attachment. Wound Cx grew proteus mirabilis susceptible to Augmenting. Blood cultures were sterile. Pt was initially on Vanc and Zosyn, then deescalated to PO Augmentin. Given concern for worsening wound infection on 11/22, pt restarted on zosyn. Was discharged on Augmentin/ciprofloxacin Endocrinology was consulted for CoCa was ~ 12.5 with PTH <6.3 indicating a non PTH mediated cause, PTHrP was elevated 12. Vit D level was wnl. Hypercalcemia was initially managed with IVF and one dose of IV Pamidronate on 11/12/24. Hypercalcemia work up included myeloma labs, which showed 0.2 g/dL monoclonal free lambda light chains in beta region, for which Hematology was engaged. Pt also had elevated IgA and normal IgG and IgM levels. Free light chains Supportive onc was following closely for pain management. On 11/25 recommended increasing dose of fentanyl patch to 75 mcg/h Q72H (last increased 11/20/24) and starting oxycodone IR 20 mg PO Q3H PRN moderate or severe pain and continuing IV dilaudid 1mg q2hr for breakthrough pain. The patient's goals for the shift include The clinical goals for the shift include pain management and no signs of sepsis. Problem: Skin Goal: Decreased wound size/increased tissue granulation at next dressing change 11/18/2024751 by Lily Mario RN Outcome: Progressing 11/17/20241815 by Lily Mario RN Flowsheets (Taken 11/17/20241815) Decreased wound size/increased tissue granulation at next dressing change: Promote sleep for wound healing 11/17/20241814 by Lily Mario RN Outcome: Progressing Goal: Participates in plan/prevention/treatment measures 11/18/2024751 by Lily Mario RN Outcome: Progressing 11/17/20241814 by Lily Mario RN Outcome: Progressing Goal: Prevent/manage excess moisture 11/18/2024 075 by Lily Mario RN Outcome: Progressing 11/17/20241814 by Lily Mario RN Outcome: Progressing Goal: Prevent/minimize sheer/friction injuries 11/18/2024 075 by Lily Mario RN Outcome: Progressing 11/17/20241814 by Lily Mario RN Outcome: Progressing Goal: Promote/optimize nutrition 11/18/2024 075 by Lily Mario RN Outcome: Progressing 11/17/20241814 by Lily Mario RN Outcome: Progressing Goal: Promote skin healing 11/18/2024 075 by Lily Mario RN Flowsheets (Taken 11/18/2024753) Promote skin healing: Protective dressings over bony prominences 11/18/2024 075 by Lily Mario RN Outcome: Progressing 11/17/20241814 by Lily Mario RN Outcome: Progressing The patient's goals for the shift include The clinical goals for the shift include pain management and no signs of sepsis. Problem: Skin Goal: Decreased wound size/increased tissue granulation at next dressing change 11/18/2024 0752 by Lily Mario RN Outcome: Progressing 11/17/20241815 by Lily Mario RN Flowsheets (Taken 11/17/20241815) Decreased wound size/increased tissue granulation at next dressing change: Promote sleep for wound healing 11/17/20241814 by Lily Mario RN Outcome: Progressing Goal: Participates in plan/prevention/treatment measures 11/18/2024 075 by Lily Mario RN Outcome: Progressing 11/17/20241814 by Lily Mario RN Outcome: Progressing Goal: Prevent/manage excess moisture 11/18/2024 0752 by Lily Mario RN Outcome: Progressing 11/17/2024 181 by Lily Mario RN Outcome: Progressing Goal: Prevent/minimize sheer/friction injuries 11/18/2024 0752 by Lily Mario, AMAN Outcome: Progressing 11/17/2024 181 by Lily Mario RN Outcome: Progressing Goal: Promote/optimize nutrition 11/18/2024 0752 by Lily Mario RN Outcome: Progressing 11/17/20241814 by Lily Mario RN Outcome: Progressing Goal: Promote skin healing 11/18/2024 0752 by Lily Mario RN Outcome: Progressing 11/17/2024 181 by Lily Mario RN Outcome: Progressing Problem: Fall/Injury Goal: Not fall by end of shift 11/18/2024 0752 by Lily Mario RN Outcome: Progressing 11/17/20241814 by Lily Mario RN Outcome: Progressing Goal: Be free from injury by end of the shift 11/18/2024 0752 by Lily Mario RN Outcome: Progressing 11/17/2024 181 by Lily Mario RN Outcome: Progressing Goal: Verbalize understanding of personal risk factors for fall in the hospital 11/18/2024 0752 by Lily Mario RN Outcome: Progressing 11/17/2024 181 by Lily Mario RN Outcome: Progressing Goal: Verbalize understanding of risk factor reduction measures to prevent injury from fall in the home 11/18/2024 0752 by Lily Mario RN Outcome: Progressing 11/17/2024 181 by Lily Mario RN Outcome: Progressing Goal: Use assistive devices by end of the shift 11/18/2024 0752 by Lily Mario RN Outcome: Progressing 11/17/20241814 by Lily Mario RN Outcome: Progressing Goal: Pace activities to prevent fatigue by end of the shift 11/18/2024 0752 by Lily Mario RN Outcome: Progressing 11/17/20241814 by Lily Mario RN Outcome: Progressing Problem: Pain Goal: Takes deep breaths with improved pain control throughout the shift 11/18/2024 0752 by Lily Mario RN Outcome: Progressing 11/17/20241814 by Lily Mario RN Outcome: Progressing Goal: Turns in bed with improved pain control throughout the shift 11/18/2024 075 by Lily Mario RN Outcome: Progressing 11/17/20241814 by Lily Mario RN Outcome: Progressing Goal: Walks with improved pain control throughout the shift 11/18/2024 075 by Lily Mario RN Outcome: Progressing 11/17/20241814 by Lily Mario RN Outcome: Progressing Goal: Performs ADL's with improved pain control throughout shift 11/18/2024 075 by Lily Mario RN Outcome: Progressing 11/17/20241814 by Lily Mario RN Outcome: Progressing Goal: Participates in PT with improved pain control throughout the shift 11/18/2024 0752 by Lily Mario RN Outcome: Progressing 11/17/20241814 by Lily Mario RN Outcome: Progressing Goal: Free from opioid side effects throughout the shift 11/18/2024 075 by Lily Mario RN Outcome: Progressing 11/17/20241814 by Lily Mario RN Outcome: Progressing Goal: Free from acute confusion related to pain meds throughout the shift 11/18/2024 0752 by Lily Mario RN Outcome: Progressing 11/17/20241814 by Lily Mario RN Outcome: Progressing The patient's goals for the shift include pain control. The clinical goals for the shift include pain management and no signs of sepsis. Over the shift, the patient did not make progress toward the following goals. Barriers to progression include n/a. Recommendations to address these barriers include n/a. The patient's goals for the shift include The clinical goals for the shift include pt annette sleep 4 hours during the night Problem: Skin Goal: Decreased wound size/increased tissue granulation at next dressing change 11/17/20241815 by Lily Mario RN Flowsheets (Taken 11/17/20241815) Decreased wound size/increased tissue granulation at next dressing change: Promote sleep for wound healing 11/17/20241814 by Lily Mario RN Outcome: Progressing Goal: Participates in plan/prevention/treatment measures Outcome: Progressing Goal: Prevent/manage excess moisture Outcome: Progressing Goal: Prevent/minimize sheer/friction injuries Outcome: Progressing Goal: Promote/optimize nutrition Outcome: Progressing Goal: Promote skin healing Outcome: Progressing Problem: Fall/Injury Goal: Not fall by end of shift Outcome: Progressing Goal: Be free from injury by end of the shift Outcome: Progressing Goal: Verbalize understanding of personal risk factors for fall in the hospital Outcome: Progressing Goal: Verbalize understanding of risk factor reduction measures to prevent injury from fall in the home Outcome: Progressing Goal: Use assistive devices by end of the shift Outcome: Progressing Goal: Pace activities to prevent fatigue by end of the shift Outcome: Progressing The patient's goals for the shift include The clinical goals for the shift include pt annette sleep 4 hours during the night Problem: Skin Goal: Decreased wound size/increased tissue granulation at next dressing change Outcome: Progressing Goal: Participates in plan/prevention/treatment measures Outcome: Progressing Goal: Prevent/manage excess moisture Outcome: Progressing Goal: Prevent/minimize sheer/friction injuries Outcome: Progressing Goal: Promote/optimize nutrition Outcome: Progressing Goal: Promote skin healing Outcome: Progressing Problem: Fall/Injury Goal: Not fall by end of shift Outcome: Progressing Goal: Be free from injury by end of the shift Outcome: Progressing Goal: Verbalize understanding of personal risk factors for fall in the hospital Outcome: Progressing Goal: Verbalize understanding of risk factor reduction measures to prevent injury from fall in the home Outcome: Progressing Goal: Use assistive devices by end of the shift Outcome: Progressing Goal: Pace activities to prevent fatigue by end of the shift Outcome: Progressing The patient's goals for the shift include The clinical goals for the shift include pt annette sleep 4 hours during the night Pt had some sleep during the night, but needed pain meds every few hours Problem: Skin Goal: Decreased wound size/increased tissue granulation at next dressing change Outcome: Progressing Flowsheets (Taken 11/16/2024 1157) Decreased wound size/increased tissue granulation at next dressing change: Promote sleep for wound healing Goal: Promote/optimize nutrition Outcome: Progressing Goal: Promote skin healing Outcome: Progressing Flowsheets (Taken 11/16/2024 1157) Promote skin healing: Assess skin/pad under line(s)/device(s) The patient's goals for the shift include The clinical goals for the shift include pain mgmt The patient's goals for the shift include The clinical goals for the shift include pt will sleep 4 hours during the night Pt had pain all night but was able to sleep [facility] INPATIENT SIGNIFICANT EVENT NOTE SERVICE DATE: 11/15/2024 Interval Events: Spoke with MD from primary team. Pt is having uncontrolled pain from CA of UNK origin- pathology pending. INCREASE Regimen as follows: 10mg oxycodone q3h PRN for severe pain 5mg oxycodone q3h PRN for moderate pain 0.6mg IV hydromorphone q2h PRN for BT pain. Will complete full consult tomorrow. Thank you for asking [facility] to assist with care of this patient. Please contact us for additional questions or concerns. SIGNATURE: TRAVIS Rodas PAGER/CONTACT: Contact information: [facility] Monday-Monday 8 AM-5 PM [email or web address] Secure chat or pager [phone]. After hours and weekends: pager [phone] Brief heme note: Kevan La is a 49 y.o. male with PMHx of HS that is refractory and unresponsive to multiple treatments was transferred from [facility] due to gluteal abscess, for which he has been hospitalized and had I&D previously. Imaging is also notable for a enhancing mass that is involving the left gluteus that has progressed from prior imaging in 08/2024. He is readmitted 11/10 for gluteal wound with concern for rapid disease progression now s/p biopsy revealing squamous cell carcinoma. During hospitalization, pt found to have asymptomatic hypercalcemia with low PTH. Endo consulted. Hypercalcemia work up included myeloma labs, which showed 0.2 g/dL monoclonal free lambda light chains in beta region. PTHrp resulted elevated 12. Hematology was consulted for M protein on SPEP, normal UPEP in patient with asymptomatic hypercalcemia. Requesting recommendation for further work up/management. IgG and IgM wnl. IgA elevated. FLC pending. Renal function appears at baseline. Anemia present but in the setting of chronic inflammation and folate deficiency. Recommendations: - follow up free light chains - if any additional debridement or biopsies planned, please send to heme path to rule out AL amyloidosis Case discussed with Dr. Joe Forte MD Hematology-Oncology Fellow, PGY4 Hematology Consult Pager: [phone] Cosigned by Fransisca Diaz MD at 11/16/2024 3:15 PM EST Problem: Skin Goal: Decreased wound size/increased tissue granulation at next dressing change Outcome: Progressing Goal: Prevent/minimize sheer/friction injuries Outcome: Progressing Flowsheets (Taken 11/15/2024 1118) Prevent/minimize sheer/friction injuries: HOB 30 degrees or less Use pull sheet Problem: Fall/Injury Goal: Pace activities to prevent fatigue by end of the shift Outcome: Progressing Problem: Pain Goal: Takes deep breaths with improved pain control throughout the shift Outcome: Progressing Goal: Free from opioid side effects throughout the shift Outcome: Progressing The patient's goals for the shift include decrease in pain The clinical goals for the shift include pain control The patient's goals for the shift include The clinical goals for the shift include Pain control The patient's goals for the shift include The clinical goals for the shift include Pain control Problem: Skin Goal: Decreased wound size/increased tissue granulation at next dressing change Outcome: Progressing Goal: Participates in plan/prevention/treatment measures Outcome: Progressing Goal: Prevent/manage excess moisture Outcome: Progressing Goal: Prevent/minimize sheer/friction injuries Outcome: Progressing Goal: Promote/optimize nutrition Outcome: Progressing Goal: Promote skin healing Outcome: Progressing Problem: Fall/Injury Goal: Not fall by end of shift Outcome: Progressing Goal: Be free from injury by end of the shift Outcome: Progressing Goal: Verbalize understanding of personal risk factors for fall in the hospital Outcome: Progressing Goal: Verbalize understanding of risk factor reduction measures to prevent injury from fall in the home Outcome: Progressing Goal: Use assistive devices by end of the shift Outcome: Progressing Goal: Pace activities to prevent fatigue by end of the shift Outcome: Progressing Problem: Pain Goal: Takes deep breaths with improved pain control throughout the shift Outcome: Progressing Goal: Turns in bed with improved pain control throughout the shift Outcome: Progressing Goal: Walks with improved pain control throughout the shift Outcome: Progressing Goal: Performs ADL's with improved pain control throughout shift Outcome: Progressing Goal: Participates in PT with improved pain control throughout the shift Outcome: Progressing Goal: Free from opioid side effects throughout the shift Outcome: Progressing Goal: Free from acute confusion related to pain meds throughout the shift Outcome: Progressing The patient's goals for the shift include The clinical goals for the shift include Pt to remain pain controlled throughout shift. Problem: Skin Goal: Decreased wound size/increased tissue granulation at next dressing change Outcome: Progressing Goal: Participates in plan/prevention/treatment measures Outcome: Progressing Goal: Prevent/manage excess moisture Outcome: Progressing Goal: Prevent/minimize sheer/friction injuries Outcome: Progressing Goal: Promote/optimize nutrition Outcome: Progressing Goal: Promote skin healing Outcome: Progressing Problem: Fall/Injury Goal: Not fall by end of shift Outcome: Progressing Goal: Be free from injury by end of the shift Outcome: Progressing Goal: Verbalize understanding of personal risk factors for fall in the hospital Outcome: Progressing Goal: Verbalize understanding of risk factor reduction measures to prevent injury from fall in the home Outcome: Progressing Goal: Use assistive devices by end of the shift Outcome: Progressing Goal: Pace activities to prevent fatigue by end of the shift Outcome: Progressing Problem: Pain Goal: Takes deep breaths with improved pain control throughout the shift Outcome: Progressing Goal: Turns in bed with improved pain control throughout the shift Outcome: Progressing Goal: Walks with improved pain control throughout the shift Outcome: Progressing Goal: Performs ADL's with improved pain control throughout shift Outcome: Progressing Goal: Participates in PT with improved pain control throughout the shift Outcome: Progressing Goal: Free from opioid side effects throughout the shift Outcome: Progressing Goal: Free from acute confusion related to pain meds throughout the shift Outcome: Progressing Problem: Skin Goal: Decreased wound size/increased tissue granulation at next dressing change Outcome: Progressing Goal: Participates in plan/prevention/treatment measures Outcome: Progressing Goal: Prevent/manage excess moisture Outcome: Progressing Goal: Prevent/minimize sheer/friction injuries Outcome: Progressing Goal: Promote/optimize nutrition Outcome: Progressing Goal: Promote skin healing Outcome: Progressing Problem: Fall/Injury Goal: Not fall by end of shift Outcome: Progressing Goal: Be free from injury by end of the shift Outcome: Progressing Goal: Verbalize understanding of personal risk factors for fall in the hospital Outcome: Progressing Goal: Verbalize understanding of risk factor reduction measures to prevent injury from fall in the home Outcome: Progressing Goal: Use assistive devices by end of the shift Outcome: Progressing Goal: Pace activities to prevent fatigue by end of the shift Outcome: Progressing Problem: Pain Goal: Takes deep breaths with improved pain control throughout the shift Outcome: Progressing Goal: Turns in bed with improved pain control throughout the shift Outcome: Progressing Goal: Walks with improved pain control throughout the shift Outcome: Progressing Goal: Performs ADL's with improved pain control throughout shift Outcome: Progressing Goal: Participates in PT with improved pain control throughout the shift Outcome: Progressing Goal: Free from opioid side effects throughout the shift Outcome: Progressing Goal: Free from acute confusion related to pain meds throughout the shift Outcome: Progressing Problem: Skin Goal: Decreased wound size/increased tissue granulation at next dressing change Outcome: Progressing Goal: Participates in plan/prevention/treatment measures Outcome: Progressing Goal: Prevent/manage excess moisture Outcome: Progressing Goal: Prevent/minimize sheer/friction injuries Outcome: Progressing Goal: Promote/optimize nutrition Outcome: Progressing Goal: Promote skin healing Outcome: Progressing Problem: Fall/Injury Goal: Not fall by end of shift Outcome: Progressing Goal: Be free from injury by end of the shift Outcome: Progressing Goal: Verbalize understanding of personal risk factors for fall in the hospital Outcome: Progressing Goal: Verbalize understanding of risk factor reduction measures to prevent injury from fall in the home Outcome: Progressing Goal: Use assistive devices by end of the shift Outcome: Progressing Goal: Pace activities to prevent fatigue by end of the shift Outcome: Progressing Problem: Pain Goal: Takes deep breaths with improved pain control throughout the shift Outcome: Progressing Goal: Turns in bed with improved pain control throughout the shift Outcome: Progressing Goal: Walks with improved pain control throughout the shift Outcome: Progressing Goal: Performs ADL's with improved pain control throughout shift Outcome: Progressing Goal: Participates in PT with improved pain control throughout the shift Outcome: Progressing Goal: Free from opioid side effects throughout the shift Outcome: Progressing Goal: Free from acute confusion related to pain meds throughout the shift Outcome: Progressing Problem: Skin Goal: Decreased wound size/increased tissue granulation at next dressing change Outcome: Progressing Problem: Fall/Injury Goal: Not fall by end of shift Outcome: Progressing Problem: Pain Goal: Takes deep breaths with improved pain control throughout the shift Outcome: Progressing The patient's goals for the shift include The clinical goals for the shift include rest .Rapid Response Nurse Note: Rapid Response Pager time: [phone] Arrival time: 1649 Event end time: 1800 Location: [address] [] Triage by phone or secure messaging Rapid response initiated by: [] Rapid response RN [] Family [] Nursing Integrated Marketing Manager [x] Physician [] RADAR auto page [] Sepsis auto-page [x] RN [] RT [] DIVISION OPERATIONS MANAGER/PA [] Other: Primary reason for call: [] BAT [] New CPAP/BiPAP [] Bleeding [] Change in mental status [] Chest pain [] Code blue [] FiO2 >/= 50% [] HR </= 40 bpm [] HR >/= 130 bpm [] Hyperglycemia [] Hypoglycemia [] RADAR [] RR </= 8 bpm [] RR >/= 30 bpm [x] SBP </= 90 mmHg [] SpO2 < 90% [] Seizure [] Sepsis [] Shortness of breath [] Staff concern: see comments Providers present at bedside (if applicable): DACR Primary Team Interventions: [] None [] ABG/VBG [] Assist w/ICU transfer [] BAT paged [] Bag mask [] Blood [] Cardioversion [] Code Blue [] Code blue for intubation [] Code status changed [] Chest x-ray [] EKG [x] IV fluid/bolus [] KUB x-ray [x] Labs/cultures [] Medication [] Nebulizer treatment [] NIPPV (CPAP/BiPAP) [] Oxygen [] Oral airway [x] Peripheral IV [] Palliative care consult [] CT/MRI [] Sepsis protocol [] Suctioned [] Other: Outcome: [] Coded and [] Code blue for intubation [] Coded and transferred to ICU [] on division [x] Remained on division (no change) [] Remained on division + additional monitoring [] Remained in ED [] Transferred to ED [] Transferred to ICU [] Transferred to inpatient status [] Transferred for interventions (procedure) [] Transferred to ICU stepdown [] Transferred to surgery [] Transferred to telemetry [] Sepsis protocol [] STEMI protocol [] Stroke protocol [x] Bedside nurse instructed to page rapid response for any concerns or acute change in condition/VS Additional Comments: Rapid Response Upon arrival to unit, Bedside RN, DACR, & Moser Team @bedside. Patient was a Rapid Response call about an hour prior to this current call. Refer back to previous note for interventions. Bedside RN notified Rapid RN that second call was made due to patient suddenly becoming hypotensive around 80/50's. Patient's lab's also came back from prior rapid showing: HBG 4.9, K 2.7. Per Team patient's labs could be dilutional as patient is on maintence fluid @200cc/hr 1L LR bolus ordered and started to maintain systolic above 85. 2 20G IV's placed REPEAT Labs including CBC, CMP, VBG ordered and collected. Patient asymptomatic, denies any lightheadness/dizziness/ or other associated symptoms. POST 1L bolus Vitals: 100/54(69), HR 104, SPO2 95 on RA. Per Primary Team, patient's blood pressure is back to baseline. Maintain BP Goal of greater than 85 systolic. Plan per team to await repeat CBC results and transfuse accordingly. Bedside RN aware of plan. Notified Staff to reach back out to Rapid Response with any concerns or change in patient's condition. .Rapid Response Nurse Note: Rapid Response Pager time: [phone] Arrival time: 1510 Event end time: 1530 Location: [address] [] Triage by phone or secure messaging Rapid response initiated by: [] Rapid response RN [] Family [] Nursing Integrated Marketing Manager [] Physician [] RADAR auto page [] Sepsis auto-page [x] RN [] RT [] DIVISION OPERATIONS MANAGER/PA [] Other: Primary reason for call: [] BAT [] New CPAP/BiPAP [] Bleeding [] Change in mental status [] Chest pain [] Code blue [] FiO2 >/= 50% [] HR </= 40 bpm [] HR >/= 130 bpm [] Hyperglycemia [] Hypoglycemia [] RADAR [] RR </= 8 bpm [] RR >/= 30 bpm [] SBP </= 90 mmHg [] SpO2 < 90% [] Seizure [] Sepsis [] Shortness of breath [x] Staff concern: see comments Providers present at bedside (if applicable): SANGEETA Moser Team Interventions: [] None [] ABG/VBG [] Assist w/ICU transfer [] BAT paged [] Bag mask [] Blood [] Cardioversion [] Code Blue [] Code blue for intubation [] Code status changed [] Chest x-ray [x] EKG [] IV fluid/bolus [] KUB x-ray [x] Labs/cultures [x] Medication [] Nebulizer treatment [] NIPPV (CPAP/BiPAP) [] Oxygen [] Oral airway [] Peripheral IV [] Palliative care consult [] CT/MRI [] Sepsis protocol [] Suctioned [] Other: Outcome: [] Coded and [] Code blue for intubation [] Coded and transferred to ICU [] on division [x] Remained on division (no change) [] Remained on division + additional monitoring [] Remained in ED [] Transferred to ED [] Transferred to ICU [] Transferred to inpatient status [] Transferred for interventions (procedure) [] Transferred to ICU stepdown [] Transferred to surgery [] Transferred to telemetry [] Sepsis protocol [] STEMI protocol [] Stroke protocol [x] Bedside nurse instructed to page rapid response for any concerns or acute change in condition/VS Additional Comments: RAPID RESPONSE Upon arrival to unit, Primary RN @bedside. Per Bedside RN, patient suddenly developed shakiness/tremors in upper body along with mild nausea. Vital signs checked: BP 123/65(84), hr 96, Spo2 98%, RR 20 Blood Glucose: 96 Upon exam of patient: Patient A/ox3, follows commands, and moves all extremities. Pupils equal round reactive. Patient RA with no cough or complaints of shortness of breathe. No increased work of breathing. Patient afebrile, warm and dry. Complaints of nausea and pain but no complaints of dizziness, lightheadedness, blurred vision, or any other associated symptoms. Per patient, he experienced these same tremors his last hospitalization about 4 months ago with no clear cause. Patient states he was given warm blankets and it self resolved. DACR and Moser Team @bedside. Per Primary Team, patient is being treated with IV medication for High Serum calcium levels. Repeat Labs including RFP, MAG, CBC ordered STAT and collected. EKG completed showing Sinus tachycardiac with normal QTC. 4mg IV Zofran ordered for Nausea relief. Throughout course of Rapid Response, patient's tremors visibly decreased in intensity and patient reports feeling a little better. Per Primary Team, will follow-up on labs and make adjustments to medications as needed. No other interventions needed at this time by Rapid Response. Notified Staff to page Rapid Response with any concerns or changes in patient's condition. Was notified by pt's nurse at 3:05 PM that pt developed tremors. On arrival, pt was normotensive BP 123/65, afebrile, HR of 102, BG 96, saturating well on RA, w/o increased work of breathing. Pt was conversing without difficulty and there were no changes in mentation from baseline. Pt was c/o nausea. Reported similar episode 4 mos ago that resolved after drinking oral electrolyte solution. Pt was NPO until afternoon in anticipation of wound drainage with IR that was aborted by IR. Pt denied dyspnea, chest pain/pressure, abdominal pain, lightheadedness/dizziness, [place], dysuria. Denies recent EtOH use. STAT ECG w/ sinus tachycardia and no acute changes. Qtc normal. Gave zofran 4 mg IV x 1. STAT labs were ordered: RFP/Mg, Phos, iCa, CBC. Also obtained blood Cx and TSH w/ reflex. Pt's tremors visibly decreased in intensity approx. 15 minutes after arrival of the primary care team in the room. Addendum: Labs returned as follows: Hgb 4.9, K 2.7. Pt was reassessed at bedside. No clear source of bleeding identified. BP's were in 80's/40's-50's and HR ranged 100's-115. T 100.4 F. Type and screen ordered and 3 units of pRBCs were prepared. Consent signed. 1L LR bolus administered and 2 x 20G IV's placed. Repeat labs (CBC, CMP, VBG, lactate) were ordered. Repeat Hgb 8.2. Suspect dilution of previous blood samples with NS gtt. Patient remained asymptomatic, denied CP, SOB, lightheadness/dizziness, abdominal pain. POST 1L bolus Vitals: 100/54(69), HR 104, SPO2 95 on RA. Problem: Skin Goal: Decreased wound size/increased tissue granulation at next dressing change Outcome: Progressing Goal: Participates in plan/prevention/treatment measures Outcome: Progressing Goal: Prevent/manage excess moisture Outcome: Progressing Goal: Prevent/minimize sheer/friction injuries Outcome: Progressing Goal: Promote/optimize nutrition Outcome: Progressing Goal: Promote skin healing Outcome: Progressing Problem: Fall/Injury Goal: Not fall by end of shift Outcome: Progressing Goal: Be free from injury by end of the shift Outcome: Progressing Goal: Verbalize understanding of personal risk factors for fall in the hospital Outcome: Progressing Goal: Verbalize understanding of risk factor reduction measures to prevent injury from fall in the home Outcome: Progressing Goal: Use assistive devices by end of the shift Outcome: Progressing Goal: Pace activities to prevent fatigue by end of the shift Outcome: Progressing The clinical goals for the shift include rest Interventional Radiology Consult Briefly, Kevan La is a 49yo M with PMHx of hidradenitis supprative which has not responded to therapy (as detailed in internal medicine note), with a left gluteal/thigh mass. IR consulted for possible drainage/aspiration. Upon review of images, there is a mass within the left posterior thigh region which appears ulcerative, with likely superimposed hemorrhagic/fluid products within the mass. The attenuation of the fluid components measures approx 41 HU which is in the range of blood products. It is felt that this mass is likely malignant especially given its interval growth since prior imaging. Of note, dermatology has also been consulted. Recommendations: - No indication for drain placement at this time as there is no drainable component of the mass/collection. - Appreciate dermatology recs. - Follow up with previously obtained wound cultures as well as punch biopsy. - If biopsy sampling insufficient and needs more tissue, please re-engage IR for possible biopsy. Case discussed with IR attending Dr Prince. Ryland Win, PGY3 For IR consults, call [phone] (M-F 7a-5p) EMERGENT IR Pager: [phone] (M-F 5p-7a) ([place], [place] 24hr) PATIENT: KEVAN LA : 1975 ADMIT DATE: 11/10/2024 3:29 AM DISCH DATE: RESPONDING PROVIDER #: [id number] PROVIDER RESPONSE TEXT: I agree with line server diagnosis of Moderate malnutrition on 11/11/2024 CDI QUERY TEXT: Clarification Instruction: Based on your assessment of the patient and the clinical information, please provide the requested documentation by clicking on the appropriate radio button and enter any additional information if prompted. Question: Please further clarify this patient nutritional status as When answering this query, please exercise your independent professional judgment. The fact that a question is being asked, does not imply that any particular answer is desired or expected. The patient's clinical indicators include: Clinical Information: 11/12 PN indicates 49 YOM w/PMH s/f refractory hidradenitis suppurativa and gluteal abscess. Clinical Indicators: 11/11 Surveying Teacher consult: "Moderate malnutrition related to acute disease or injury As Evidenced by: meeting < 75% of EER for > 1 week, mild fat loss and muscle wasting and 10.2% weight loss x approximately 3 weeks." 11/11 line server note indicates pt eating poorly at SNF due to poor food quality and receives protein drink only intermittently. BMI 25.93 Treatment: Surveying Teacher consult recommending regular diet, Ensure Plus QD. Risk Factors: Refractory HS. Gluteal abscess. Eating poorly at SNF. Options provided: -- I agree with line server diagnosis of Moderate malnutrition on 11/11/2024 -- Other - I will add my own diagnosis -- Refer to Clinical Documentation Reviewer Query created by: Dara Matos on 11/12/2024 4:59 PM Electronically signed by: ISA TURNER MD 11/13/2024 6:51 AM Problem: Fall/Injury Goal: Not fall by end of shift Outcome: Progressing Goal: Be free from injury by end of the shift Outcome: Progressing Goal: Verbalize understanding of personal risk factors for fall in the hospital Outcome: Progressing Goal: Verbalize understanding of risk factor reduction measures to prevent injury from fall in the home Outcome: Progressing Goal: Use assistive devices by end of the shift Outcome: Progressing Goal: Pace activities to prevent fatigue by end of the shift Outcome: Progressing The patient's goals for the shift include rest The clinical goals for the shift include maintain safety Over the shift, the patient did make progress toward the following goals. Problem: Fall/Injury Goal: Verbalize understanding of risk factor reduction measures to prevent injury from fall in the home 11/12/2024 1108 by Cinthya Stover RN Outcome: Progressing 11/12/2024 1051 by Cinthya Stover RN Outcome: Progressing 11/12/2024 1045 by Cinthya Stover RN Outcome: Progressing Problem: Fall/Injury Goal: Use assistive devices by end of the shift 11/12/2024 1108 by Cinthya Stover RN Outcome: Progressing 11/12/2024 1051 by Cinthya Stover RN Outcome: Progressing 11/12/2024 1045 by Cinthya Stover RN Outcome: Progressing Problem: Fall/Injury Goal: Pace activities to prevent fatigue by end of the shift 11/12/2024 1108 by Cinthya Stover RN Outcome: Progressing 11/12/2024 1051 by Cinthya Stover RN Outcome: Progressing 11/12/2024 1045 by Cinthya Stover RN Outcome: Progressing Problem: Pain Goal: Takes deep breaths with improved pain control throughout the shift 11/12/2024 1108 by Cinthya Stover RN Outcome: Progressing 11/12/2024 1051 by Cinthya Stover RN Outcome: Progressing 11/12/2024 1045 by Cinthya Stover RN Outcome: Progressing Goal: Turns in bed with improved pain control throughout the shift 11/12/2024 1108 by Cinthya Stover RN Outcome: Progressing 11/12/2024 1051 by Cinthya Stover RN Outcome: Progressing 11/12/2024 1045 by Cinthya Stover RN Outcome: Progressing Goal: Walks with improved pain control throughout the shift 11/12/2024 1108 by Cinthya Stover RN Outcome: Progressing 11/12/2024 1051 by Cinthya Stover RN Outcome: Progressing 11/12/2024 1045 by Cinthya Stover RN Outcome: Progressing Goal: Performs ADL's with improved pain control throughout shift 11/12/2024 1108 by Cinthya Stover RN Outcome: Progressing 11/12/2024 1051 by Cinthya Stover RN Outcome: Progressing 11/12/2024 1045 by Cinthya Stover RN Outcome: Progressing Goal: Participates in PT with improved pain control throughout the shift 11/12/2024 1108 by Cinthya Stover RN Outcome: Progressing 11/12/2024 1051 by Cinthya Stover RN Outcome: Progressing 11/12/2024 1045 by Cinthya Stover RN Outcome: Progressing Goal: Free from opioid side effects throughout the shift 11/12/2024 1108 by Cinthya Stover RN Outcome: Progressing 11/12/2024 1051 by Cinthya Stover RN Outcome: Progressing 11/12/2024 1045 by Cinthya Stover RN Outcome: Progressing Goal: Free from acute confusion related to pain meds throughout the shift 11/12/2024 1108 by Cinthya Stover RN Outcome: Progressing 11/12/2024 1051 by Cinthya Stover RN Outcome: Progressing 11/12/2024 1045 by Cinthya Stover RN Outcome: Progressing The clinical goals for the shift include maintain safety Problem: Skin Goal: Decreased wound size/increased tissue granulation at next dressing change 11/12/2024 1051 by Cinthya Stover RN Outcome: Progressing 11/12/2024 1045 by Cinthya Stover RN Outcome: Progressing Goal: Participates in plan/prevention/treatment measures 11/12/2024 1051 by Cinthya Stover RN Outcome: Progressing 11/12/2024 1045 by Cinthya Stover RN Outcome: Progressing Goal: Prevent/manage excess moisture 11/12/2024 1051 by Cinthya Stover RN Outcome: Progressing 11/12/2024 1045 by Cinthya Stover RN Outcome: Progressing Goal: Prevent/minimize sheer/friction injuries 11/12/2024 1051 by Cinthya Stover RN Outcome: Progressing 11/12/2024 1045 by Cinthya Stover RN Outcome: Progressing Goal: Promote/optimize nutrition 11/12/2024 1051 by Cinthya Stover RN Outcome: Progressing 11/12/2024 1045 by Cinthya Stover RN Outcome: Progressing Goal: Promote skin healing 11/12/2024 1051 by Cinthya Stover RN Outcome: Progressing 11/12/2024 1045 by Cinthya Stover RN Outcome: Progressing Problem: Fall/Injury Goal: Not fall by end of shift 11/12/2024 1051 by Cinthya Stover RN Outcome: Progressing 11/12/2024 1045 by Cinthya Stover RN Outcome: Progressing Goal: Be free from injury by end of the shift 11/12/2024 1051 by Cinthya Stover RN Outcome: Progressing 11/12/2024 1045 by Cinthya Stover RN Outcome: Progressing Goal: Verbalize understanding of personal risk factors for fall in the hospital 11/12/2024 1051 by Cinthya Stover RN Outcome: Progressing 11/12/2024 1045 by Cinthya Stover RN Outcome: Progressing Goal: Verbalize understanding of risk factor reduction measures to prevent injury from fall in the home 11/12/2024 1051 by Cinthya Stover RN Outcome: Progressing 11/12/2024 1045 by Cinthya Stover RN Outcome: Progressing Goal: Use assistive devices by end of the shift 11/12/2024 1051 by Cinthya Stover RN Outcome: Progressing 11/12/2024 1045 by Cinthya Stover RN Outcome: Progressing Goal: Pace activities to prevent fatigue by end of the shift 11/12/2024 1051 by Cinthya Stover RN Outcome: Progressing 11/12/2024 1045 by Cinthya Stover RN Outcome: Progressing The clinical goals for the shift include maintain safety Problem: Skin Goal: Decreased wound size/increased tissue granulation at next dressing change Outcome: Progressing Goal: Participates in plan/prevention/treatment measures Outcome: Progressing Goal: Prevent/manage excess moisture Outcome: Progressing Goal: Prevent/minimize sheer/friction injuries Outcome: Progressing Goal: Promote/optimize nutrition Outcome: Progressing Goal: Promote skin healing Outcome: Progressing Problem: Fall/Injury Goal: Not fall by end of shift Outcome: Progressing Goal: Be free from injury by end of the shift Outcome: Progressing Goal: Verbalize understanding of personal risk factors for fall in the hospital Outcome: Progressing Goal: Verbalize understanding of risk factor reduction measures to prevent injury from fall in the home Outcome: Progressing Goal: Use assistive devices by end of the shift Outcome: Progressing Goal: Pace activities to prevent fatigue by end of the shift Outcome: Progressing The clinical goals for the shift include maintain safety ACS Significant Event Note CT pelvis from OSH reviewed with ACS team. Gluteal wound/abscess does not appear drainable. Recommend for continued conservative management of wound per dermatology, plastic surgery. Please re-engage ACS with any additional questions or concerns. Jesus Carty MD PGY-1 General Surgery Acute Care Surgery [phone] The patient's goals for the shift include The clinical goals for the shift include maintain safety Problem: Skin Goal: Prevent/manage excess moisture Outcome: Progressing Flowsheets (Taken 11/12/2024 6609) Prevent/manage excess moisture: Moisturize dry skin Goal: Prevent/minimize sheer/friction injuries Outcome: Progressing Problem: Fall/Injury Goal: Not fall by end of shift Outcome: Progressing Goal: Be free from injury by end of the shift Outcome: Progressing Problem: Pain Goal: Takes deep breaths with improved pain control throughout the shift Outcome: Progressing Goal: Turns in bed with improved pain control throughout the shift Outcome: Progressing Problem: Skin Goal: Decreased wound size/increased tissue granulation at next dressing change Outcome: Progressing Goal: Participates in plan/prevention/treatment measures Outcome: Progressing Goal: Prevent/manage excess moisture Outcome: Progressing Goal: Prevent/minimize sheer/friction injuries Outcome: Progressing Goal: Promote/optimize nutrition Outcome: Progressing Goal: Promote skin healing Outcome: Progressing Problem: Fall/Injury Goal: Not fall by end of shift Outcome: Progressing Goal: Be free from injury by end of the shift Outcome: Progressing Goal: Verbalize understanding of risk factor reduction measures to prevent injury from fall in the home Outcome: Progressing Problem: Pain Goal: Takes deep breaths with improved pain control throughout the shift Outcome: Progressing Goal: Turns in bed with improved pain control throughout the shift Outcome: Progressing Goal: Performs ADL's with improved pain control throughout shift Outcome: Progressing Goal: Free from opioid side effects throughout the shift Outcome: Progressing The patient's goals for the shift include The clinical goals for the shift include pts pain will be controlled through shift The patient's goals for the shift include The clinical goals for the shift include maintain safety Problem: Skin Goal: Participates in plan/prevention/treatment measures Outcome: Progressing Goal: Prevent/manage excess moisture Outcome: Progressing Flowsheets (Taken 11/11/2024 0125) Prevent/manage excess moisture: Moisturize dry skin Goal: Prevent/minimize sheer/friction injuries Outcome: Progressing Problem: Fall/Injury Goal: Be free from injury by end of the shift Outcome: Progressing Goal: Verbalize understanding of personal risk factors for fall in the hospital Outcome: Progressing The patient's goals for the shift include Problem: Skin Goal: Decreased wound size/increased tissue granulation at next dressing change 11/10/2024 09 by Soheila Oscar RN Outcome: Progressing 11/10/2024911 by Soheila Oscar RN Outcome: Progressing Goal: Participates in plan/prevention/treatment measures 11/10/2024912 by Soheila Oscar RN Outcome: Progressing 11/10/2024911 by Soheila Oscar RN Outcome: Progressing Goal: Prevent/manage excess moisture 11/10/2024912 by Soheila Oscar RN Outcome: Progressing 11/10/2024911 by Soheila Oscar RN Outcome: Progressing Goal: Prevent/minimize sheer/friction injuries 11/10/2024912 by Soheila Oscar RN Outcome: Progressing 11/10/2024911 by Soheila Oscar RN Outcome: Progressing Goal: Promote/optimize nutrition 11/10/2024912 by Soheila Oscar RN Outcome: Progressing 11/10/2024911 by Soheila Oscar RN Outcome: Progressing Goal: Promote skin healing 11/10/2024912 by Soheila Oscar RN Outcome: Progressing 11/10/2024911 by Soheila Oscar RN Outcome: Progressing Problem: Fall/Injury Goal: Not fall by end of shift 11/10/2024912 by Soheila Oscar RN Outcome: Progressing 11/10/2024911 by Soheila Oscar RN Outcome: Progressing Goal: Be free from injury by end of the shift 11/10/2024912 by Soheila Oscar RN Outcome: Progressing 11/10/2024911 by Soheila Oscar RN Outcome: Progressing Goal: Verbalize understanding of personal risk factors for fall in the hospital 11/10/2024912 by Soheila Oscar RN Outcome: Progressing 11/10/2024911 by Soheila Oscar RN Outcome: Progressing Goal: Verbalize understanding of risk factor reduction measures to prevent injury from fall in the home 11/10/2024912 by Soheila Oscar RN Outcome: Progressing 11/10/2024911 by Soheila Oscar RN Outcome: Progressing Goal: Use assistive devices by end of the shift 11/10/2024912 by Soheila Oscar RN Outcome: Progressing 11/10/2024911 by Soheila Oscar RN Outcome: Progressing Goal: Pace activities to prevent fatigue by end of the shift 11/10/2024912 by Soheila Oscar RN Outcome: Progressing 11/10/2024911 by Soheila Oscar RN Outcome: Progressing Problem: Pain Goal: Takes deep breaths with improved pain control throughout the shift 11/10/2024912 by Soheila Oscar RN Outcome: Progressing 11/10/2024911 by Soheila Oscar RN Outcome: Progressing Goal: Turns in bed with improved pain control throughout the shift 11/10/2024912 by Soheila Oscar RN Outcome: Progressing 11/10/2024911 by Soheila Oscar RN Outcome: Progressing Goal: Walks with improved pain control throughout the shift 11/10/2024912 by Soheila Oscar RN Outcome: Progressing 11/10/2024911 by Soheila Oscar RN Outcome: Progressing Goal: Performs ADL's with improved pain control throughout shift 11/10/2024912 by Soheila Oscar RN Outcome: Progressing 11/10/2024911 by Soheila Oscar RN Outcome: Progressing Goal: Participates in PT with improved pain control throughout the shift 11/10/2024912 by Soheila Oscar RN Outcome: Progressing 11/10/2024911 by Soheila Oscar RN Outcome: Progressing Goal: Free from opioid side effects throughout the shift 11/10/2024912 by Soheila Oscar RN Outcome: Progressing 11/10/2024911 by Soheila Oscar RN Outcome: Progressing Goal: Free from acute confusion related to pain meds throughout the shift 11/10/2024912 by Soheila Oscar RN Outcome: Progressing 11/10/2024 0912 by Soheila Oscar RN Outcome: Progressing The clinical goals for the shift include pt will remian free from injury throughout shift documented in this encounter [facility] Work Phone: 11-26-2024 Nurse Note Wound care completed per orders except the usage of Hibiclens. Refused by patient. Wound care to left hip area had scant purulent drainage. Area to left buttocks had no drainage, Both wounds are malodorous. Spoke with patient concerning the bed being raised, he was told to lower bed but because of his height 6'7" patient wants to keep it higher. Assumed care of patient. Patient awake, alert x 4. Bed locked in low position. Call adorno within reach. Safety maintained. Dressings changed at 0530 Assumed care of patient. Patient resting, awake, alert x 4. Bed locked in low position. Call adorno within reach. Safety maintained. 0749 patient given pain medication. Safety maintained. Patient alert. Patient spoke with doctor approximately 0740. Assumed care of patient. Patient resting, alert x 4. Bed locked in low position. Call adorno within reach. Safety maintained. Patient uses walker to get to bathroom. 1415 wounds on left leg and buttocks changed. Pain meds given before changing. 1900 patient remained safe during shift. Dressings changed and wound care done. Very painful for pt. Dressings changed Pt refusing to follow commands with bed alarm, pt refused to listen to nurse and follow safety commands and demanded to use toilet. Pt seen defecating standing up over toilet and made nurse shut the door. 1000: pt now agreeable to bed alarm, and apologetic on behavior prior to bed alarm adherence. Bed locked and in lowest position. Bed alarm on I received the patient at 1500 from morning shift RN. The patient appeared comfortable with no complains. Pain is controlled. Beata NEWTON documented in this encounter [facility] Work Phone: 11-22-2024 Consult note Associated Order (s): WOUND OSTOMY NURSING CONSULT Wound Care Consult Visit Date: 11/22/2024 Patient Name: Kevan La Date of : 1975 Reason for Consult: Reassess left buttock, Left posterior thigh and left lateral hip wounds. Wound History: 49 y.o. 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 Dermatology was consulted for HS. Wound Team Summary Assessment: Wound care on unit to reassess wounds. Wound care was completed prior to arrival by bedside RN. Discussed wounds and wound care with bedside RN. Dressing education provided to available nursing staff. The patient is currently being followed by dermatology and oncology. No changes to wound care recommendations at this time. Wound care recommendations remain as follows. Recommendation: BID and as needed for drainage control for Left buttock I&D site. Clean with Vashe wound cleanser ([employer] order # [id number]). Pack with Vashe moistened wet to dry kerlix gauze cover with ABD pad and paper tape. Recommendation: BID for distal edge of growth on distal posterior left thigh. Cover wounds with Vashe wound cleanser ([employer] order #[id number]) soaked 4 x 4 cm sterile gauze for 1-5 minutes, then gently pat dry. Cover draining wounds with 2-3 layers of accordion folded Aquacel Ag then cover with ABD pad and paper tape. (DO not cover growth as it causes the patient discomfort. Recommendations: BID for left lateral hip. Cover wounds with Vashe wound cleanser ([employer] order #[id number]) soaked 4 x 4 cm sterile gauze for 1-5 minutes, then gently pat dry. Apply clindamycin as directed by dermatology. Cover draining wounds with Aquacel Ag (Silver) ([employer] order #[id number]) Cover with Mepilex border dressing. Wound Team Plan: While inpatient, Secure chat with questions or reconsult wound care if condition worsens or changes. For urgent communications please message the group through [employer] messaging at: [facility] [place] Team, Thank you. Lori Baires RN, CWON 11/22/2024 7:50 PM Associated Order(s): IP CONSULT TO ONCOLOGY Name: Kevan La Encounter Date: 11/19/2024 PCP: No primary care provider on file. Heme-Onc: None Reason for consult: squamous cell carcinoma Attending Provider: Dr. Plunkett Hematology/ Oncology Consult Note History of Present Illness Kevan La is a 49 y.o. male with severe/refractory hidradenitis suppurativa c/b left gluteal abscess. 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 He underwent biopsy of the left buttocks wound 11/15/24 which also showed invasive squamous cell carcinoma. He was discussed at tumour board 11/18/24 and was recommended medical oncology evaluation for systemic therapy prior to potential surgical resection. Patient seen at bedside. He reports significant pain at his buttocks. Understands the recent biopsies do show squamous cell carcinoma. He feels he is getting stronger but has been essentially bedbound since ~June. Past Medical history No past medical history on file. Past Surgical History No past surgical history on file. Family History No family history on file. Social History Social History Socioeconomic History Marital status: Single Tobacco Use Smoking status: Former Current packs/day: 1.00 Average packs/day: 1 pack/day for 1.2 years (1.2 ttl pk-yrs) Types: Cigarettes Start date: 2023 Quit date: 1986 Smokeless tobacco: Never Vaping Use Vaping status: Never Used Substance and Sexual Activity Alcohol use: Not Currently Drug use: Not Currently Social Drivers of Health Financial Resource Strain: Medium Risk (11/10/2024) Overall Financial Resource Strain (CARDIA) Difficulty of Paying Living Expenses: Somewhat hard Food Insecurity: No Food Insecurity (11/10/2024) Hunger Vital Sign Worried About Running Out of Food in the Last Year: Never true Ran Out of Food in the Last Year: Never true Recent Concern: Food Insecurity - Food Insecurity Present (10/11/2024) Hunger Vital Sign Worried About Running Out of Food in the Last Year: Sometimes true Ran Out of Food in the Last Year: Sometimes true Transportation Needs: No Transportation Needs (11/10/2024) PRAPARE - Transportation Lack of Transportation (Medical): No Lack of Transportation (Non-Medical): No Intimate Partner Violence: Not At Risk (11/10/2024) Humiliation, Afraid, Rape, and Kick questionnaire Fear of Current or Ex-Partner: No Emotionally Abused: No Physically Abused: No Sexually Abused: No Housing Stability: Low Risk (11/10/2024) Housing Stability Vital Sign Unable to Pay for Housing in the Last Year: No Number of Times Moved in the Last Year: 1 Homeless in the Last Year: No Recent Concern: Housing Stability - High Risk (10/11/2024) Housing Stability Vital Sign Unable to Pay for Housing in the Last Year: Yes Number of Times Moved in the Last Year: 0 Homeless in the Last Year: No Allergies No Known Allergies Medications acetaminophen, 975 mg, TID amoxicillin-pot clavulanate, 1 tablet, q12h BERNADETTE chlorhexidine, , BID clindamycin, , BID enoxaparin, 40 mg, q24h folic acid, 1 mg, Daily melatonin, 3 mg, Nightly multivitamin with minerals, 1 tablet, Daily polyethylene glycol, 17 g, BID sennosides-docusate sodium, 2 tablet, BID varenicline tartrate, 1 mg, BID lactated Ringer's, Last Rate: 100 mL/hr (11/19/24 1324) HYDROmorphone, 1 mg, q2h PRN naloxone, 0.2 mg, PRN ondansetron, 4 mg, q6h PRN oxyCODONE, 10 mg, q3h PRN oxyCODONE, 5 mg, q3h PRN Review of Systems Review of Systems 10 pt ROS reviewed and negative aside from above Physical Exam Blood pressure 99/55, pulse 79, temperature 36.5 C (97.7 F), resp. rate 18, height 2.006 m (6' 6.98"), weight 104 kg (230 lb), SpO2 95%. ECO Gen: awake, alert, in no acute distress HEENT: AT/NC, PEERL, EOMI CV: RRR, no m/r/g Pulm: CTAB, without w/r/r Abd: soft, NT/ND Ext: no LE edema Skin: wound images on media reviewed Neuro: A&Ox4, moves all 4 extremities spontaneously Labs Lab Results Component Value Date GLUCOSE 105 (H) 11/19/2024 CALCIUM 9.5 11/19/2024 NA 134 (L) 11/19/2024 K 3.9 11/19/2024 CO2 25 11/19/2024 CL 99 11/19/2024 BUN 15 11/19/2024 CREATININE 1.15 11/19/2024 Lab Results Component Value Date WBC 12.1 (H) 11/19/2024 HGB 9.0 (L) 11/19/2024 HCT 29.6 (L) 11/19/2024 MCV 87 11/19/2024 PLT 758 (H) 11/19/2024 Lab Results Component Value Date ALT 20 11/17/2024 AST 13 11/17/2024 ALKPHOS 83 11/17/2024 BILITOT 0.3 11/17/[address] Pelvis with contrast 10/10/24: Intra-abdominal pelvis: Multiple enlarged left inguinal, left pelvic, and intra-abdominal lymph nodes. For example: There is a large left inguinal lymph node measuring 1.6 cm (series 201, image 115), enlarged left pelvic sidewall lymph node at the level of the external iliac artery measuring 1.6 cm (series 201, image 91), and a right-sided pelvic wall lymph node measuring 1.3 cm (series 201, image 86). These are likely reactive. Partially visualized colon and small bowel are within normal limits. The bladder is within normal limits. IMPRESSION: 1. Left gluteal skin thickening and ulceration, with phlegmon and fluid extending from the skin abnormality into the gluteus randell muscle. Large area of phlegmon/abscess within the gluteus randell as detailed above. 2. No evidence of osteomyelitis. Assessment/Plan Kevan La is a 49 y.o. male with severe/refractory hidradenitis suppurativa c/b left gluteal abscess. 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 He underwent biopsy of the left buttocks wound 11/15/24 which also showed invasive squamous cell carcinoma. He was discussed at tumour board 11/18/24 and was recommended medical oncology evaluation for systemic therapy prior to potential surgical resection. Discussed patient's diagnosis of squamous cell carcinoma and tumour board recommendations for consideration of systemic therapy. Discussed the first line immunotherapy regimen with cemiplimab. Discussed that patient's staging is incomplete. There are enlarged pelvic lymph nodes on CT scan 10/10/24 that were thought to be reactive but this was prior to pathologic diagnosis of SCC. Discussed that surgery could still be an option if he does not have metastatic disease Recommendations: - please obtain CT C/A/P with contrast for staging - if no other areas of suspected disease, please obtain biopsy of a pelvic lymph node - will tentatively arrange follow-[place] with Dr. Jiang at [facility] pending transport capabilities of eventual SNF - discussed that seeking care with a local oncologist would be reasonable as well - appreciate supportive oncology recs for pain If needed by SNF: tentative treatment would be an immunotherapy infusion approximately 2 hrs of chair time once every 21 days Thank you for this consult Patient seen and discussed with attending physician, Dr. Jiang, who agrees with the above. Nicholas Carty MD Hematology-Oncology Fellow, PGY5 Hematology Consult Pager: [phone] Oncology Consult Pager: [phone] Cosigned by Sreedhar Jiang MD at 11/19/2024 4:14 PM EST Associated attestation - Sreedhar Jiang MD - 11/19/2024 4:14 PM EST I saw and evaluated the patient. I personally obtained the gomez and critical portions of the history and physical exam or was physically present for gomez and critical portions performed by the resident/fellow. I reviewed the resident/fellow's documentation and discussed the patient with the resident/fellow. I agree with the resident/fellow's medical decision making as documented in the note. 49 yo with hx of hidradentis suppurativa with recent bx that shows cutaneous squamous cell carcinoma. Patient has adenopathy on CT pelvis. Would recommend complete staging as per Dr. Carty above. He will need a biopsy of one of those pelvic LN or a distant lesion if found on CT. We briefly spoke about IO therapy exclusively if metastatic vs. Neoadjuvant IO if his disease is just locally advanced. We discussed that IO therapy is outpatient only. He would like to continue his care with our team ([place]- , [facility] , [place]- Dr. Valentino). Associated Order(s): Inpatient consult to Integrative Hem/Onc Inpatient consult to Integrative Hem/Onc Consult performed by: TRAVIS Patel Consult ordered by: TRAVIS Rodas Reason For Consult Symptom management History Of Present Illness Kevan La is a 49 y.o. male with PMH of refractory hidradenitis supprativa (HS) with newly diagnosed peripheral nodule and tissue of SCC on 11/12/24 who was admitted for left gluteal abscess. Integrative hematology/oncology consulted by supportive oncology for non-pharmacological symptom management of pain. Pt resting in bed at time of exam, no family at bedside. Integrative hematology/oncology consult team introduced to pt. Non-pharmacological symptom management interventions reviewed, including: Reiki, meditation, mindfulness practices, guided imagery, as well as acupuncture, acupressure, and gentle bodywork. Pt declined integrative heme/onc services. Music therapy, art therapy, dental therapist and pet therapy offered to pt, pt agreeable to referrals. Information obtained from chart review, discussion with patient/family, and discussion with primary team. Past Medical History He has no past medical history on file. Surgical History He has no past surgical history on file. Social History He reports that he quit smoking about 38 years ago. His smoking use included cigarettes. He started smoking about 14 months ago. He has a 1.2 pack-year smoking history. He has never used smokeless tobacco. He reports that he does not currently use alcohol. He reports that he does not currently use drugs. Family History No family history on file. Allergies Patient has no known allergies. Review of Systems Constitutional: Positive for activity change and fatigue. Physical Exam Vitals and nursing note reviewed. Constitutional: General: He is not in acute distress. Appearance: Normal appearance. He is normal weight. He is ill-appearing. HENT: Head: Normocephalic and atraumatic. Nose: Nose normal. Mouth/Throat: Mouth: Mucous membranes are moist. Eyes: Extraocular Movements: Extraocular movements intact. Pupils: Pupils are equal, round, and reactive to light. Cardiovascular: Rate and Rhythm: Normal rate. Pulmonary: Effort: Pulmonary effort is normal. Abdominal: General: Abdomen is flat. Palpations: Abdomen is soft. Skin: General: Skin is warm and dry. Neurological: General: No focal deficit present. Mental Status: He is alert and oriented to person, place, and time. Mental status is at baseline. Psychiatric: Mood and Affect: Mood normal. Behavior: Behavior normal. Thought Content: Thought content normal. Judgment: Judgment normal. Last Recorded Vitals Blood pressure 95/54, pulse 82, temperature 36.6 C (97.9 F), resp. rate 16, height 2.006 m (6' 6.98"), weight 104 kg (230 lb), SpO2 95%. Relevant Results Scheduled medications acetaminophen, 975 mg, oral, TID amoxicillin-pot clavulanate, 1 tablet, oral, q12h BERNADETTE chlorhexidine, , Topical, BID clindamycin, , Topical, BID enoxaparin, 40 mg, subcutaneous, q24h folic acid, 1 mg, oral, Daily melatonin, 3 mg, oral, Nightly polyethylene glycol, 17 g, oral, BID sennosides-docusate sodium, 2 tablet, oral, BID varenicline tartrate, 1 mg, oral, BID Continuous medications PRN medications PRN medications: HYDROmorphone, naloxone, ondansetron, oxyCODONE, oxyCODONE Results for orders placed or performed during the hospital encounter of 11/10/24 (from the past 24 hours) CBC and Auto Differential Result Value Ref Range WBC 12.3 (H) 4.4 - 11.3 x10*3/uL nRBC 0.0 0.0 - 0.0 /100 WBCs RBC 3.35 (L) 4.50 - 5.90 x10*6/uL Hemoglobin 9.0 (L) 13.5 - 17.5 g/dL Hematocrit 29.9 (L) 41.0 - 52.0 % MCV 89 80 - 100 fL MCH 26.9 26.0 - 34.0 pg MCHC 30.1 (L) 32.0 - 36.0 g/dL RDW 16.6 (H) 11.5 - 14.5 % Platelets 785 (H) 150 - 450 x10*3/uL Neutrophils % 75.5 40.0 - 80.0 % Immature Granulocytes %, Automated 0.3 0.0 - 0.9 % Lymphocytes % 13.7 13.0 - 44.0 % Monocytes % 6.7 2.0 - 10.0 % Eosinophils % 3.2 0.0 - 6.0 % Basophils % 0.6 0.0 - 2.0 % Neutrophils Absolute 9.30 (H) 1.20 - 7.70 x10*3/uL Immature Granulocytes Absolute, Automated 0.04 0.00 - 0.70 x10*3/uL Lymphocytes Absolute 1.69 1.20 - 4.80 x10*3/uL Monocytes Absolute 0.82 0.10 - 1.00 x10*3/uL Eosinophils Absolute 0.40 0.00 - 0.70 x10*3/uL Basophils Absolute 0.07 0.00 - 0.10 x10*3/uL Renal Function Panel Result Value Ref Range Glucose 91 74 - 99 mg/dL Sodium 135 (L) 136 - 145 mmol/L Potassium 4.5 3.5 - 5.3 mmol/L Chloride 99 98 - 107 mmol/L Bicarbonate 26 21 - 32 mmol/L Anion Gap 15 10 - 20 mmol/L Urea Nitrogen 14 6 - 23 mg/dL Creatinine 1.22 0.50 - 1.30 mg/dL eGFR 72 >60 mL/min/1.73m*2 Calcium 9.9 8.6 - 10.6 mg/dL Phosphorus 2.7 2.5 - 4.9 mg/dL Albumin 3.5 3.4 - 5.0 g/dL Magnesium Result Value Ref Range Magnesium 2.19 1.60 - 2.40 mg/dL ECG 12 Lead Result Date: 11/14/2024 Normal sinus rhythm Normal ECG When compared with ECG of 13-OCT-2024 11:30, Vent. rate has decreased BY [address] no longer depressed in Inferior leads ST no longer depressed in Anterolateral leads T wave inversion no longer evident in Anterior leads CT pelvis w IV contrast Result Date: 11/08/2024 Patient Name: KEVAN LA : 1975 [facility]#: [id number] Exam Date/Time: 11/08/2024 16:38 Procedure: CT PELVIS W IV CONTRAST Ordering Provider: KENNEDY MICHAEL Reason For Exam: refractory Hidradenitis suppurative hx to left gluteal, multiple draining abscesses, hypotension EXAMINATION: CT PELVIS W IV CONTRAST CLINICAL HISTORY: refractory Hidradenitis suppurative hx to left gluteal, multiple draining abscesses, hypotension COMPARISON: 09/12/2024 TECHNIQUE: Helical CT of the pelvis with IV contrast. Dose reduction was employed with automated exposure control. FINDINGS: There is a large open wound along the patient's left buttock measuring approximately 5.5 cm in diameter and 3.6 cm in depth. There is also an adjacent large, enhancing soft tissue masslike opacity arising in the inferior aspect of the left gluteal muscles and extending to the skin surface caudal to the open wound. This masslike opacity measures approximately 9.6 x 8.2 x 14.9 cm (previously 6.3 x 7.1 x 10.4 cm). The overlying skin is abnormally thickened with nodular enhancing masses in the skin surface. There is also skin thickening and subcutaneous fat stranding superior to the ulcerative lesion in the left buttock, and comparatively mild skin thickening along the medial aspect of the right buttock. No tracking gas in the soft tissues or discrete drainable fluid collection is identified. There is no site of cortical bone erosion or periostitis to indicate osteomyelitis. The visualized intraperitoneal structures are unremarkable with no acute intraperitoneal abnormalities identified. There are multiple left inguinal and external iliac lymph nodes measuring up to 1.8 cm in short axis. The previously noted right posterior bladder diverticulum now contains a 14 mm stone and there is an adjacent 15 mm high attenuation structure in the right posterior urinary bladder which is more dense than contrast and most likely represents an additional calculus. Other small bladder diverticuli are also noted. 1. Large ulcerative wound in the left buttock with an adjacent 14.9 cm enhancing mass involving the left gluteal muscles and overlying subcutaneous tissues. While this could simply relate to the patient's history of hidradenitis suppurvativa, a malignant mass would have the same appearance, and the mass is significantly larger than on the prior CT from August 2024. Biopsy is suggested. 2. No evidence of osteomyelitis. No acute intracranial abnormalities. 3. Left inguinal and external iliac lymphadenopathy. 4. New bladder calculi, the largest 15 mm. Report Dictated on Electronically Signed By: Julio Sears MD Electronically Signed Date/Time: 11/08/2024 5:20 PM EST Lower extremity venous duplex bilateral Result Date: 10/21/2024 [place] [id number] and Vascular Lab Report [facility] US LOWER EXTREMITY VENOUS DUPLEX BILATERAL Patient Name: KEVAN LA Ruben Physician: [id number] Viki Colin MD Study Date: 10/21/2024 [facility] [address] [facility] Alejo Physician: THELMA MRN/PID: [id number] Technologist: Javier Dhaliwal RVT Technologist 2: Date of /Age: 9 1975 years Gender: M Admission Status: Inpatient Location [facility] Performed: Diagnosis/ICD: Pain in left leg-M79.605 CPT Codes: 78691 Peripheral venous duplex scan for DVT complete CONCLUSIONS: Right Lower Venous: No evidence of acute deep vein thrombus visualized in the right lower extremity. Additional Findings; Lymph nodes noted in groin area. Left Lower Venous: No evidence of acute deep vein thrombus visualized in the left lower extremity. There is a non-vascular structure with measurements of 1.5 cm x 3.8 cm noted in groin area. Additional Findings; Lymph nodes noted in groin area. Imaging & Doppler Findings: Right Compressible Thrombus Flow Distal External Iliac None Spontaneous/Phasic CFV Yes None Spontaneous/Phasic PFV Yes None FV Proximal Yes None Spontaneous/Phasic FV Mid Yes None FV Distal Yes None Popliteal Yes None Spontaneous/Phasic Peroneal Yes None PTV Yes None Left Compress Thrombus Flow Distal External Iliac None Spontaneous/Phasic CFV Yes None Spontaneous/Phasic PFV Yes None FV Proximal Yes None Spontaneous/Phasic FV Mid Yes None FV Distal Yes None Popliteal Yes None Spontaneous/Phasic Peroneal Yes None PTV Yes None [id number] Viki Colin MD Final Bedside PICC Imaging Result Date: 10/20/2024 These images are not reportable by radiology and will not be interpreted by Radiologists. Assessment/Plan Introduction to Integrative Medicine: Spoke with pt at bedside. Patient seemed to appreciate the extra layer of support. Integrative Medicine was introduced as a service for patients with serious illness to help with symptoms through non-pharmacological management, such as mindfulness, acupuncture, and gentle bodywork. Such interventions can assist with symptoms such as anxiety, fatigue, nausea, depression and pain. The [facility] Integrative Medicine Symptom Management program offers multi-disciplinary supervised care of cancer patients using Integrative Modalities billed to insurance using NCCN and SIO/ASCO guideline-driven practices. Integrative hematology/oncology consult team introduced to pt. Non-pharmacological symptom management interventions reviewed, including: Reiki, meditation, mindfulness practices, guided imagery, as well as acupuncture, acupressure, and gentle bodywork. Pt declined integrative heme/onc services. Gluteal abscess pain: pain related to malignancy Pain is well-controlled Defer to supportive oncology team for adequate PO/IV pain regimen Recommend integrative therapy modalities as pt allows: -Acupuncture; provided pt education today. Pt declined services. -Acupressure, peña pete - pt declined -Gentle bodywork and stretching as tolerated - pt declined -Art therapy - pt agreeable; consult placed -Music therapy - pt agreeable; consult placed -Chocolatier - pt agreeable; consult placed -Pet therapy - pt agreeable; consult placed Altered Mood: Anxiety and/or depression r/t health concerns History of anxiety/depression -Recommend integrative medicine modalities as listed above Integrative medicine will sign off at this time, given pt's decline in participation of integrative medicine interentions. Consults to expressive therapies placed per pt request. Please don't hesitate to page us if any further questions arise. Thank you for allowing us to participate in the care of this patient. TRAVIS Patel (available by [employer]) [facility] Inpatient Integrative Medicine I spent 45 minutes in the care of this patient which included chart review, interviewing patient/family, discussion with primary team, coordination of care, and documentation. Medical Decision Making was high level due to high complexity of problems, extensive data review, and high risk of management/treatment. Associated Order(s): Inpatient consult to SCC Adult Supportive Oncology SUPPORTIVE AND PALLIATIVE ONCOLOGY CONSULT SERVICE DATE: 11/16/2024 ASSESSMENT/PLAN Kevan La is a 49 y.o. male with Bx of peripheral nodule and tissue Cx on 11/12/24 c/f SCC (primary vs metastatic lesion). PMH significant for refractory hidradenitis supprativa (HS). Admitted 11/10/2024 for further evaluation and management of 14cm gluteal fluid collection. Supportive and Palliative Oncology is consulted for pain management. Symptom Management Plan: Recommended changes are bolded Pain: Cancer related pain: gluteal abscess , somatic, well-controlled Home regimen: Oxycodone 5mg Intolerances/previously tried: N/A Risk factors: none Renal function WNL and Hepatic function WNL Continue 10mg oxycodone q4h PRN for severe pain Continue 5mg oxycodone q4h PRN for moderate pain Continue 0.6mg IV hydromorphone q2h PRN for BT pain Nausea: At risk for nausea with vomiting related to opioids Home regimen: none QTc: within normal limits Well-controlled Continue 4mg ondansetron q6h PRN Constipation At risk for constipation related to medication side effects (including opioids), currently not constipated Usual bowel pattern: every day Home regimen: none LBM 2 days Continue miralax daily Continue 2 senna-s BID Goal to have BM without straining q48-72h, adjust regimen as needed Disposition: Please start the process of having prior authorization with meds to beds deliver medications to patient prior to discharge via [facility] pharmacy. Prescriptions will need to be sent 48-72 hours prior to discharge so that a prior authorization can be completed. Discharge date: unknown pending acute issues Patient does not qualify for an appointment with Outpatient Supportive Oncology- needs to establish with Oncology outpatient SIGNATURE: TRAVIS Rodas PAGER/CONTACT: Contact information: Supportive and Palliative Oncology Monday-Monday 8 AM-5 PM [employer] chat or pager [phone]. After hours and weekends: pager [phone] Inpatient consult to [facility] Adult Supportive Oncology Consult performed by: TRAVIS Rodas Consult ordered by: Claudio Plunkett MD PALLIATIVE MEDICINE OUTPATIENT PROVIDER: None CURRENT ATTENDING PROVIDER: Claudio Plunkett MD Medical Oncologist: No care project manager/team coach to display Radiation Oncologist: No care project manager/team coach to display Primary Physician: No primary care provider on file. None REASON FOR CONSULT/CHIEF CONSULT COMPLAINT: pain management Subjective HISTORY OF PRESENT ILLNESS: Kevan La is a 49 y.o. male with Bx of peripheral nodule and tissue Cx on 11/12/24 c/f SCC (primary vs metastatic lesion). PMH significant for refractory hidradenitis supprativa (HS). Admitted 11/10/2024 for further evaluation and management of 14cm gluteal fluid collection. Supportive and Palliative Oncology is consulted for pain management. Pt reports pain is now fairly well-controlled on current regimen and he was able to get some sleep last night. Does not like having to take "addictive meds" but agrees he needs them right now. Pain Assessment: Onset: Weeks Location: Left gluteal abscess Duration: Constant Characteristics: Rating: Severe Descriptors: throbbing, sharp, and burning Aggravating: movement Relieving: Analgesics, Positioning, and Modifying activity Intolerances:Kevan La has No Known Allergies. Interference with Function: Somewhat Barriers to Pain Management: Fear of addiction Opioid Requirements Past 24 h opioid requirements (11/15/24 at 0800 to 11/16/24 at 0800): Hydromorphone 0.6 mg IV x 6 doses = 3.6 mg = 57.6 OME Oxycodone IR 10 mg PO x 6 doses = 60 mg = 90 OME Total 24h OME use: 147.6 OARRS/PDMP reviewed - no aberrant behavior noted. Symptom Assessment: Pain:very much Headache: none Dizziness:none Lack of energy: a little Difficulty sleeping: a little Worrying: a little Anxiety: none Depressive symptoms/low mood: a little Pain in mouth/swallowing: none Dry mouth: none Taste changes: none Shortness of breath: none Lack of appetite: none Nausea: none Vomiting: none Constipation: a little Diarrhea: none Sore muscles: none Numbness or tingling in hands/feet/other: a little Information obtained from: chart review, interview of patient, and discussion with primary team ____ Oncology History No history exists. No past medical history on file. No past surgical history on file. No family history on file. SOCIAL HISTORY: Single- lives alone. Has supportive brother and parents in [place], [place]. 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 Social History: reports that he quit smoking about 38 years ago. His smoking use included cigarettes. He started smoking about 13 months ago. He has a 1.2 pack-year smoking history. He has never used smokeless tobacco. He reports that he does not currently use alcohol. He reports that he does not currently use drugs. REVIEW OF SYSTEMS: Review of systems negative unless noted in HPI. Objective Lab Results Component Value Date WBC 10.0 11/16/2024 HGB 8.5 (L) 11/16/2024 HCT 26.1 (L) 11/16/2024 MCV 87 11/16/2024 PLT 619 (H) 11/16/2024 Lab Results Component Value Date GLUCOSE 115 (H) 11/16/2024 CALCIUM 9.2 11/16/2024 NA 136 11/16/2024 K 3.7 11/16/2024 CO2 22 11/16/2024 CL 103 11/16/2024 BUN 13 11/16/2024 CREATININE 1.25 11/16/2024 Lab Results Component Value Date ALT 17 11/16/2024 AST 11 11/16/2024 ALKPHOS 78 11/16/2024 BILITOT 0.2 11/16/2024 Estimated Creatinine Clearance: 92.6 mL/min (by C-G formula based on SCr of 1.25 mg/dL). Encounter Date: 11/10/24 ECG 12 Lead Result Value Ventricular Rate 77 Atrial Rate 77 IN Interval 146 QRS Duration 108 QT Interval 368 QTC Calculation(Bazett) 416 P [place] 55 R [place] 72 T [place] 66 QRS Count 13 Q Onset 211 P Onset 138 P Offset 195 T Offset 395 QTC [place] 399 Narrative Normal sinus rhythm Normal ECG When compared with ECG of 13-OCT-2024 11:30, Vent. rate has decreased BY [address] no longer depressed in Inferior leads ST no longer depressed in Anterolateral leads T wave inversion no longer evident in Anterior leads Wt Readings from Last 5 Encounters: 11/11/24 104 kg (230 lb) 11/08/24 104 kg (230 lb) 10/11/24 101 kg (222 lb) 09/13/24 101 kg (222 lb 3.6 oz) 09/12/24 102 kg (225 lb) Current Outpatient Medications Medication Instructions acetaminophen (TYLENOL) 975 mg, oral, Every 8 hours Bimzelx Autoinjector 320 mg, subcutaneous, See admin instructions, Take 1 dose (320mg) every 2 weeks for 9 doses (16 weeks), then take 1 dose every 4 weeks. cholecalciferol, vitamin D3, (VITAMIN D3 ORAL) 10,000 Units, Daily clindamycin (Cleocin T) 1 % gel Topical, 2 times daily, Apply to left thigh around incision and drainage site, do not apply directly to surgery site ferrous sulfate 325 mg, Daily with breakfast ibuprofen 600 mg, oral, Every 6 hours PRN lactose-reduced food (ENSURE PLUS ORAL) oral, Every morning mv-min/folic/K1/lycopen/lutein (MEN 50 PLUS MULTIVITAMIN ORAL) 1 tablet, oral, Daily polyethylene glycol (GLYCOLAX, MIRALAX) 17 g, oral, Daily tiZANidine (ZANAFLEX) 2 mg, oral, 3 times daily varenicline tartrate (Chantix) 0.5 mg tablet Take 1 tablet (0.5 mg) by mouth 2 times a day for 4 days, THEN 2 tablets (1 mg) 2 times a day. Take with full glass of water.. Do not fill before October 22, 2024. Scheduled medications acetaminophen, 975 mg, oral, TID amoxicillin-pot clavulanate, 1 tablet, oral, q12h BERNADETTE chlorhexidine, , Topical, BID clindamycin, , Topical, BID enoxaparin, 40 mg, subcutaneous, q24h folic acid, 1 mg, oral, Daily HYDROmorphone, 0.2 mg, intravenous, Once melatonin, 3 mg, oral, Nightly oral hydration, 250 mL, oral, Once polyethylene glycol, 17 g, oral, BID sennosides-docusate sodium, 2 tablet, oral, BID varenicline tartrate, 1 mg, oral, BID Continuous medications PRN medications HYDROmorphone, 0.6 mg, q2h PRN naloxone, 0.2 mg, PRN ondansetron, 4 mg, q6h PRN oxyCODONE, 10 mg, q3h PRN oxyCODONE, 5 mg, q3h PRN Allergies: No Known Allergies PHYSICAL EXAMINATION: Vital Signs: Vital signs reviewed Vitals: 11/16/24 1311 BP: 103/65 Pulse: 71 Resp: 17 Temp: SpO2: 97% Pain Score: 8 Physical Exam Well-developed M Laying in bed, NAD A&O x 3, pleasant and cooperative with interview & exam Breathing comfortably on RA Abd soft, NTND, BS Gluteal wound is draining serosanguinous fluid No edema in ext PALLIATIVE CARE ENCOUNTER: Introduction to Supportive and Palliative Oncology: Spoke with patient at bedside Introduced the role and philosophy of Supportive and Palliative oncology in the evaluation and management of symptoms during cancer treatment Palliative care was introduced as a service for patients with serious illness to help with symptoms, assist with goals of care conversations, navigate complex decision making, improve quality of life for patients, and provide support both patients and families. Medical Decision Making/Goals of Care/Advance Care Planning: Patient's current clinical condition, including diagnosis, prognosis, and management plan, and goals of care were discussed. Life limiting disease: SCC of UNK primary Family: Supportive though live in [place] Performance status: Moderate limitations due to pain Joys/meaning/strength: Family and [place] Understanding of health: Demonstrates good prognostic understanding of disease process, understands plan will be determined once pathology results are in. Information:Wants full disclosure Goals: symptom control and cancer directed therapy Worries and fears now and future: ongoing symptoms Code status discussion: Discussed previously and Full code Advance Directives Existence of Advance Directives:No - not interested Decision maker: Surrogate decision maker is brother Omkar Supportive Interventions: Interventions: SPO Spiritual Care: referral placed, Integrative Oncology referral placed Signature and billing: Medical complexity was high level due to due to complexity of problems, extensive data review, and high risk of management/treatment. DATA Diagnostic tests and information reviewed for today's visit: Conversation with primary team, Most recent labs and imaging results, Medications Some elements copied from Juvenal Larios MD note on 11/16/24, the elements have been updated and all reflect current decision making from today, 11/16/2024. Plan of Care discussed with: Provider, RN, Patient Thank you for asking Supportive and Palliative Oncology to assist with care of this patient. Recommendations will be communicated back to the consulting service by way of shared electronic medical record/secure chat/email or [id number]. We will continue to follow. Please contact us for additional questions or concerns. SIGNATURE: TRAVIS Rodas PAGER/CONTACT: Contact information: Supportive and Palliative Oncology Monday-Monday 8 AM-5 PM [employer] chat or pager [phone]. After hours and weekends: pager [phone] Associated Order(s): IP CONSULT TO HEMATOLOGY Name: Kevan La Encounter Date: 11/14/2024 PCP: No primary care provider on file. Reason for consult: M protein on SPEP, normal UPEP in patient with asymptomatic hypercalcemia. Requesting recommendation for further work up/management Attending Provider: Dr. Plunkett Hematology/ Oncology Consult Note History of Present Illness Kevan La is a 49 y.o. male with PMHx of HS that is refractory and unresponsive to multiple treatments was transferred from [facility] due to gluteal abscess, for which he has been hospitalized and had I&D previously. Imaging is also notable for a enhancing mass that is involving the left gluteus that has progressed from prior imaging in 08/2024. Dermatology trying to have Bimzelx (IL17A/F inhibitor) approved. Blood cx NGTD, Tissue Cx shows Proteus Mirabilis. Quant TB, HIV, Hep B surface antigen/antibody, Hep B core antibody, and Hep C negative. During hospitalization, pt found to have asymptomatic hypercalcemia with low PTH. Endo consulted. Hypercalcemia work up included myeloma labs, which showed 0.2 g/dL monoclonal free lambda light chains in beta region. Hematology was consulted for M protein on SPEP, normal UPEP in patient with asymptomatic hypercalcemia. Requesting recommendation for further work up/management. Patient recent presented from rehab. He reports walking a few steps to the bathroom. Mobility limited by his left gluteal wound Heme/Onc History Reports no hx of heme/onc disorders in patient or in family hx. Past Medical history No past medical history on file. Past Surgical History No past surgical history on file. Family History No family history on file. Social History Lives alone Social History Socioeconomic History Marital status: Single Tobacco Use Smoking status: Former Current packs/day: 1.00 Average packs/day: 1 pack/day for 1.2 years (1.2 ttl pk-yrs) Types: Cigarettes Start date: 2023 Quit date: 1986 Smokeless tobacco: Never Vaping Use Vaping status: Never Used Substance and Sexual Activity Alcohol use: Not Currently Drug use: Not Currently Social Drivers of Health Financial Resource Strain: Medium Risk (11/10/2024) Overall Financial Resource Strain (CARDIA) Difficulty of Paying Living Expenses: Somewhat hard Food Insecurity: No Food Insecurity (11/10/2024) Hunger Vital Sign Worried About Running Out of Food in the Last Year: Never true Ran Out of Food in the Last Year: Never true Recent Concern: Food Insecurity - Food Insecurity Present (10/11/2024) Hunger Vital Sign Worried About Running Out of Food in the Last Year: Sometimes true Ran Out of Food in the Last Year: Sometimes true Transportation Needs: No Transportation Needs (11/10/2024) PRAPARE - Transportation Lack of Transportation (Medical): No Lack of Transportation (Non-Medical): No Intimate Partner Violence: Not At Risk (11/10/2024) Humiliation, Afraid, Rape, and Kick questionnaire Fear of Current or Ex-Partner: No Emotionally Abused: No Physically Abused: No Sexually Abused: No Housing Stability: Low Risk (11/10/2024) Housing Stability Vital Sign Unable to Pay for Housing in the Last Year: No Number of Times Moved in the Last Year: 1 Homeless in the Last Year: No Recent Concern: Housing Stability - High Risk (10/11/2024) Housing Stability Vital Sign Unable to Pay for Housing in the Last Year: Yes Number of Times Moved in the Last Year: 0 Homeless in the Last Year: No Allergies No Known Allergies Medications acetaminophen, 975 mg, TID chlorhexidine, , BID clindamycin, , BID [Held by provider] enoxaparin, 40 mg, q24h melatonin, 3 mg, Nightly oral hydration, 250 mL, Once piperacillin-tazobactam, 3.375 g, q6h polyethylene glycol, 17 g, BID sennosides-docusate sodium, 2 tablet, BID vancomycin, 1,500 mg, q24h varenicline tartrate, 1 mg, BID sodium chloride 0.9%, Last Rate: 200 mL/hr (11/14/24 0704) HYDROmorphone, 0.4 mg, q4h PRN naloxone, 0.2 mg, PRN ondansetron, 4 mg, q6h PRN oxyCODONE, 10 mg, q6h PRN oxyCODONE, 5 mg, q4h PRN vancomycin, , Daily PRN Review of Systems Patient reports diarrhea, fatigue, reports 20lb weight loss in the last month. Denies shortness of breath, fever, chills, nausea, hematochezia, melena, hematuria. Physical Exam Blood pressure (!) 79/41, pulse 65, temperature 36.5 C (97.7 F), temperature source Skin, resp. rate 16, height 2.006 m (6' 6.98"), weight 104 kg (230 lb), SpO2 95%. Gen: bradyphrenic, flat affect, in no acute distress HEENT: AT/NC, PEERL, EOMI, no LAD CV: RRR, no m/r/g Pulm: CTAB, without w/r/r, diminished lung sounds Abd: soft, NT/ND, no organomegaly Ext: no LE edema Skin: left gluteal wound Neuro: A&Ox4, moves all 4 extremities spontaneously Labs Results from last 7 days Lab Units 11/13/24 1654 11/13/24 1535 11/13/24 0545 WBC AUTO x10*3/uL 9.4 5.6 11.1 HEMOGLOBIN g/dL 8.2* 4.9* 8.3* HEMATOCRIT % 25.5* 16.0* 26.2* PLATELETS AUTO x10*3/uL 570* 306 576* Results from last 7 days Lab Units 11/13/24 1723 11/13/24 1535 11/13/24 0545 11/12/24 0639 SODIUM mmol/L 138 143 139 139 POTASSIUM mmol/L 3.6 2.7* 3.7 3.6 CHLORIDE mmol/L 108* 120* 106 107 CO2 mmol/L 23 17* 25 23 BUN mg/dL 9 6 9 11 CREATININE mg/dL 1.40* 0.93 1.41* 1.49* CALCIUM mg/dL 9.8 7.4* 11.1* 11.4* PROTEIN TOTAL g/dL 5.9* 5.9* -- 6.2* 6.1* BILIRUBIN TOTAL mg/dL 0.3 0.3 -- 0.4 0.3 ALK PHOS U/L 89 89 -- 79 73 ALT U/L 17 17 -- 16 12 AST U/L 15 15 -- 13 7* GLUCOSE mg/dL 117* 83 106* 93 Lab Results Component Value Date ALT 17 11/13/2024 ALT 17 11/13/2024 AST 15 11/13/2024 AST 15 11/13/2024 ALKPHOS 89 11/13/2024 ALKPHOS 89 11/13/2024 BILITOT 0.3 11/13/2024 BILITOT 0.3 11/13/2024 Imaging === 10/10/24 === XR CHEST 1 VIEW - Impression - Previous band of right basilar airspace disease has nearly completely resolved with only a tiny amount of residual. No new consolidation or edema. Signed by: Perry Baires 10/10/2024 5:20 PM Dictation workstation: [id number] === 10/10/24 === CT PELVIS W IV CONTRAST - Impression - 1. Left gluteal skin thickening and ulceration, with phlegmon and fluid extending from the skin abnormality into the gluteus randell muscle. Large area of phlegmon/abscess within the gluteus randell as detailed above. 2. No evidence of osteomyelitis. I personally reviewed the images/study and I agree with Dr. Kinjal Hankins findings as stated. This study was interpreted at [facility], [place], [place] Signed by: Beronica Valentin 10/10/2024 11:03 PM Dictation workstation: [id number] Assessment/Plan Kevan La is a 49 y.o. male with PMHx of refractory HS that is unresponsive to multiple treatments was transferred from [facility] due to left gluteal randell abscess, for which he had been previously hospitalized and had I&D on 10/13. Imaging is also notable for a enhancing mass that is involving the left gluteus that has progressed from prior imaging in 08/2024. Hematology was consulted for abnormal SPEP that was sent in the context of hypercalcemia work up. Labs are notable for normocytic anemia, labs do show folate deficiency. Anemia labs: ferritin 259 (not as expected for acute infection), iron 24, TIBC 218 -- holding oral iron supplementation in the setting of infection. No evidence of bleeding on ROS or PE. Pt BL Cr 1.2, however it has increased to 1.44 on this admission. PTH independent hypercalcemia present, Vit D wnl being treated with IVF and one time pamidronate. Low albumin at 2.9. M protein is 0.2. UPEP wnl. Recommendations: - Will need Ig light chain values to further characterize diagnosis -follow up quantitative immunoglobulins - Recommend starting folate supplementation Thank you for this consult, we will continue to follow. Patient seen and discussed with attending physician, Dr. Haddad. Bela Mills MD Patient with HS and large gluteal wound/abscess with culture positive for proteus, found to have monoclonal light free lambda light chain 0.2g/dL as part of non PTH dependent hypercalcemia work up. UPEP normal. Pending FLC and quant immunoglobulins. Renal function appears near baseline. Anemia present but in the setting of chronic inflammation and folate deficiency. I examined the patient and agree with the resident plan as written above. Adelina Forte MD Hematology-Oncology Fellow, PGY4 Hematology Consult Pager: [phone] Cosigned by Fransisca Diaz MD at 11/15/2024 11:06 AM EST Associated attestation - Fransisca Diaz MD - 11/15/2024 11:06 AM EST I saw and evaluated the patient. I personally obtained the gomez and critical portions of the history and physical exam or was physically present for gomez and critical portions performed by the resident/fellow. I reviewed the resident/fellow's documentation and discussed the patient with the resident/fellow. I agree with the resident/fellow's medical decision making as documented in the note with the exception/addition of the following: - patient with + M protein: awaiting free kappa and Lambda light chains. UPEP unremarkable. - If any surgical debridement is planned, please send it to heme path to rule out AL amyloidosis. Associated Order(s): Inpatient consult to Infectious Diseases Inpatient consult to Infectious Diseases Consult performed by: Sarah Caldwell Consult ordered by: Claudio Plunkett MD Referred by Primary MD: No primary care provider on file. Reason For Consult Pt with resistant HS and chronic worsening L buttock wound, currently on Vancomycin/Zosyn. Nothing to drain per Surgery. Requesting antibiotic recommendations. Bx and wound culture scheduled with derm today. History Of Present Illness Kevan La is a 49 y.o. male with a past medical history of hidradenitis suppurativa (HS) refractory to numerous therapies (povorcitinib - RCT candidate, apremilast, isotretinoin, adalimumab, infliximab, moxifloxacin/metronidazole, minocyclin, clindamycin, rifampin, augmentin and doxycycline) presenting for an HS flare of the left buttock and gluteal fold and currently on vancomycin/zosyn. Infectious disease was consulted for additional antibiotic recommendations. Patient had recent admission on 10/11/24 for HS flare. At that time, wound cx grew gram pos and gram neg, mixed anaerobes and blood cx resulted in Staph hominis slackia exigua for which patient was placed on Unasyn and later discharged to SNF. Patient reports 3 week history of itching along L hip that is 'on & off' along with increased pain and swelling at original HS site that began 1 week ago. Around that time, he also reports multiple episodes of severe nausea and two bouts of emesis that he attributes to 'bad food' and consuming medication on empty stomach. Patient was then brought from SNF to [facility] on 11/08 due to concern for worsening L buttock and gluteal HS and possible sepsis. Patient was placed on vanc/zosyn for sepsis; wound and blood cx collected at that time show NGTD. CT scan from [facility] revealed large ulcerative wound in left buttock and 14.9 cm enhancing mass involving left gluteal muscles and overlying subcutaneous tissue that is suspicious for either HS exacerbation or malignancy. Patient was transferred to for further dermatologic care and investigation of possible malignancy. Patient states that he still experiences significant pain and draining along L leg wound sites, however, that pain has since improved with oxycodone. Patient's vitals and WBC count remain stable through inpatient stay. He endorses mild nausea, constipation, fatigue, and weight loss (during recent SNF stay). He denies fevers, chills, headache, vision changes, muscle weakness, diarrhea, vomiting, and is tolerating good PO intake. Past Medical History He has no past medical history on file. Surgical History He has no past surgical history on file. Social History Occupational History Not on file Tobacco Use Smoking status: Former Current packs/day: 1.00 Average packs/day: 1 pack/day for 1.2 years (1.2 ttl pk-yrs) Types: Cigarettes Start date: 2023 Quit date: 1986 Smokeless tobacco: Never Vaping Use Vaping status: Never Used Substance and Sexual Activity Alcohol use: Not Currently Drug use: Not Currently Sexual activity: Not on file Travel History Travel since 10/12/24 No documented travel since 10/12/24 Family History No family history on file. Allergies Dust, pollen, trees, grass; takes Zyrtec for symptoms There is no immunization history on file for this patient. Medications Home medications: Medications Prior to Admission Medication Sig Dispense Refill Last Dose/Taking acetaminophen (Tylenol) 325 mg tablet Take 3 tablets (975 mg) by mouth every 8 hours. cholecalciferol, vitamin D3, (VITAMIN D3 ORAL) Take 10,000 Units by mouth once daily. clindamycin (Cleocin T) 1 % gel Apply topically 2 times a day. Apply to left thigh around incision and drainage site, do not apply directly to surgery site ferrous sulfate 325 (65 Fe) MG EC tablet Take 1 tablet by mouth once daily with breakfast. Do not crush, chew, or split. ibuprofen 200 mg tablet Take 3 tablets (600 mg) by mouth every 6 hours if needed for mild pain (1 - 3). lactose-reduced food (ENSURE PLUS ORAL) Take by mouth once daily in the morning. mv-min/folic/K1/lycopen/lutein (MEN 50 PLUS MULTIVITAMIN ORAL) Take 1 tablet by mouth once daily. polyethylene glycol (Glycolax, Miralax) 17 gram packet Take 17 g by mouth once daily. (Patient taking differently: Take 17 g by mouth once daily as needed (constipation).) tiZANidine (Zanaflex) 2 mg tablet Take 1 tablet (2 mg) by mouth 3 times a day. varenicline tartrate (Chantix) 0.5 mg tablet Take 1 tablet (0.5 mg) by mouth 2 times a day for 4 days, THEN 2 tablets (1 mg) 2 times a day. Take with full glass of water.. Do not fill before October 22, 2024. 316 tablet 0 Current medications: Scheduled medications acetaminophen, 975 mg, oral, TID chlorhexidine, , Topical, BID clindamycin, , Topical, BID enoxaparin, 40 mg, subcutaneous, q24h melatonin, 3 mg, oral, Nightly piperacillin-tazobactam, 3.375 g, intravenous, q6h polyethylene glycol, 17 g, oral, BID sennosides-docusate sodium, 2 tablet, oral, BID vancomycin, 1,500 mg, intravenous, q24h varenicline tartrate, 1 mg, oral, BID Continuous medications sodium chloride 0.9%, 200 mL/hr, Last Rate: 200 mL/hr (11/11/248) sodium chloride 0.9%, 200 mL/hr PRN medications PRN medications: naloxone, ondansetron, oxyCODONE, oxyCODONE, vancomycin Objective Range of Vitals (last 24 hours) Heart Rate: [67-76] Temp: [36.4 C (97.5 F)-36.7 C (98.1 F)] Resp: [14-16] BP: (91-101)/(51-53) SpO2: [94 %-96 %] Daily Weight 11/11/24 : 104 kg (230 lb) Body mass index is 25.93 kg/m . Physical Exam General: In no acute distress, resting comfortably in bed HEENT: Normocephalic, atraumatic Pulm: CTAB, breathing comfortably on RA Extremities: Large L hip wound packed with gauze with surrounding erythema and skin discoloration. Large L thigh mass with purulent and sanguinous drainage. Relevant Results Labs Results from last 72 hours Lab Units 11/12/24 0640 11/11/24 0930 11/10/24 0530 WBC AUTO x10*3/uL 11.5* 11.0 11.8* HEMOGLOBIN g/dL 8.2* 8.3* 8.8* HEMATOCRIT % 27.2* 26.3* 27.6* PLATELETS AUTO x10*3/uL 576* 524* 570* NEUTROS PCT AUTO % 68.2 69.6 69.5 LYMPHS PCT AUTO % 15.1 13.3 14.9 MONOS PCT AUTO % 11.0 11.8 10.3 EOS PCT AUTO % 4.8 4.2 4.1 Results from last 72 hours Lab Units 11/12/24 0639 11/11/24 0930 11/10/24 0529 SODIUM mmol/L 139 139 139 POTASSIUM mmol/L 3.6 3.8 3.8 CHLORIDE mmol/L 107 108* 104 CO2 mmol/L 23 26 25 BUN mg/dL 11 11 16 CREATININE mg/dL 1.49* 1.40* 1.44* GLUCOSE mg/dL 93 101* 103* CALCIUM mg/dL 11.4* 11.2* 11.8* ANION GAP mmol/L 13 9* 14 EGFR mL/min/1.73m*2 56* 61 59* PHOSPHORUS mg/dL -- 2.7 -- Results from last 72 hours Lab Units 11/12/24 0639 11/11/24 0930 11/10/24 1026 11/10/24 0529 ALK PHOS U/L 73 71 -- 68 BILIRUBIN TOTAL mg/dL 0.3 0.3 -- 0.4 PROTEIN TOTAL g/dL 6.1* 5.6* 6.5 6.6 ALT U/L 12 9* -- 8* AST U/L 7* 6* -- 8* ALBUMIN g/dL 2.9* 2.8* -- 3.1* Estimated Creatinine Clearance: 77.7 mL/min (A) (by C-G formula based on SCr of 1.49 mg/dL (H)). C-Reactive Protein Date Value Ref Range Status 11/10/2024 14.82 (H) <1.00 mg/dL Final 10/10/2024 7.72 (H) <1.00 mg/dL Final Sedimentation Rate Date Value Ref Range Status 11/10/2024 70 (H) 0 - 20 mm/h Final 10/10/2024 >130 (H) 0 - 20 mm/h Final HIV 1/2 Antigen/Antibody Screen with Reflex to Confirmation Date Value Ref Range Status 11/11/2024 Nonreactive Nonreactive Final No results found for: "HEPCABINIT", "HEPCAB", HCVPCRQUANT Microbiology Susceptibility data from last 90 days. Collected Specimen Info Organism Ampicillin/Sulbactam Ceftriaxone Clindamycin Erythromycin Meropenem Oxacillin Penicillin Tetracycline Trimethoprim/Sulfamethoxazole Vancomycin 10/13/24 Swab from ABSCESS Mixed Anaerobic Bacteria Mixed Gram-Positive and Gram-Negative Bacteria 10/11/24 Tissue/Biopsy from Other (specify in comments) Mixed Anaerobic Bacteria Mixed Gram-Positive and Gram-Negative Bacteria 10/10/24 Blood culture from Peripheral Venipuncture Shanthicynthiatatianna oliveiraigua S S S S S 10/10/24 Blood culture from Peripheral Venipuncture Staphylococcus hominis R R S R S S 09/14/24 Tissue/Biopsy from Skin Lesion Mixed Skin Microorganisms Mixed Anaerobic Bacteria 09/14/24 Tissue/Biopsy from Wound/Tissue Mixed Aerobic and Anaerobic Bacteria 09/13/24 Tissue/Biopsy from Skin/Superficial Abscess Mixed Aerobic and Anaerobic Bacteria Imaging Procedure: CT PELVIS W IV CONTRAST Reason For Exam: refractory Hidradenitis suppurative hx to left gluteal, multiple draining abscesses, hypotension FINDINGS: 1. Large ulcerative wound in the left buttock with an adjacent 14.9 cm enhancing mass involving the left gluteal muscles and overlying subcutaneous tissues. While this could simply relate to the patient's history of hidradenitis suppurvativa, a malignant mass would have the same appearance, and the mass is significantly larger than on the prior CT from August 2024. Biopsy is suggested. 2. No evidence of osteomyelitis. No acute intracranial abnormalities. 3. Left inguinal and external iliac lymphadenopathy. 4. New bladder calculi, the largest 15 mm. Assessment/Plan Kevan La is a 49 y.o. male with a past medical history of hidradenitis suppurativa (HS) refractory to numerous therapies (povorcitinib - RCT candidate, apremilast, isotretinoin, adalimumab, infliximab, moxifloxacin/metronidazole, minocyclin, clindamycin, rifampin, augmentin and doxycycline) presenting for an HS flare of the left buttock and gluteal fold and currently on vancomycin/zosyn. Infectious disease was consulted for additional antibiotic recommendations. Due to patient's long history of hidradenitis suppurativa and new evidence of L thigh mass the differential diagnosis includes Infection vs HS flare vs malignancy. -Agree with dermatology consultation -Recommend continuing current antibiotic regimen of IV vancomycin 1500mg every day and IV zosyn 3.375mg q6hr until wound cx results -Recommend consulting IR to evaluate abscess drainage Sarah Caldwell, MS4 Reviewed by Mohan Sales Infectious Diseases Team A Associated Order(s): WOUND OSTOMY NURSING CONSULT Images from the original note were not included. Wound Care Consult Visit Date: 11/11/2024 Patient Name: Kevan La Date of : 1975 Reason for Consult: 49 y.o. 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 Dermatology was consulted for HS. Patient has been stopped on the HS clinical trial and is not going to be resumed on this medication. Wound Assessment: 11/11/24 1700 Wound 10/13/24 Incision Buttock Left Date First Assessed/Time First Assessed: 10/13/24 0843 Primary Wound Type: Incision Location: (c) Buttock Wound Location Orientation: Left Site Assessment Red; sloughing Leda-Wound Assessment Edematous;Painful Wound Length (cm) 9 cm Wound Width (cm) 16 cm Wound Surface Area (cm^2) 144 cm^2 Wound Depth (cm) 4 cm Wound Volume (cm^3) 576 cm^3 State of Healing Non-healing Treatments Cleansed;Packings;Site care Drainage Description Purulent;Foul odor;Bourne Drainage Amount Large Dressing Packed;Kerlix/rolled gauze;ABD Dressing Changed New Dressing Status Clean;Dry Recommendation: BID and as needed for drainage control for Left buttock I&D site. Clean with Vashe wound cleanser ([employer] order # [id number]). Pack with Vashe moistened wet to dry kerlix gauze cover with ABD pad and paper tape. 11/11/24 1700 Wound 09/13/24 Other (comment) Buttock Left Date First Assessed/Time First Assessed: 09/13/24 9175 Present on Original Admission: Yes Hand Hygiene Completed: Yes Primary Wound Type: (c) Other (comment) Location: Buttock Wound Location Orientation: Left Site Assessment Edema;Hyperpigmentation;Painful;R ed Wound Length (cm) 0.5 cm Wound Width (cm) 0.5 cm Wound Surface Area (cm^2) 0.25 cm^2 Wound Depth (cm) 0.5 cm Wound Volume (cm^3) 0.125 cm^3 Wound Healing % 98 State of Healing Non-healing Treatments Cleansed;Site care Drainage Description Foul odor;Purulent;Bourne Drainage Amount Large Dressing Hydrofiber;Silver dressing;ABD Dressing Changed New Dressing Status Clean;Dry Recommendation: BID for distal edge of growth on posterior left thigh. Cover wounds with Vashe wound cleanser ([employer] order #[id number]) soaked 4 x 4 cm sterile gauze for 1-5 minutes, then gently pat dry. Cover draining wounds with 2-3 layers of accordion folded Aquacel Ag then cover with ABD pad and paper tape. (DO not cover growth as it causes the patient discomfort. Wound location: Lateral Left hip Recommendations: BID Cover wounds with Vashe wound cleanser ([employer] order #[id number]) soaked 4 x 4 cm sterile gauze for 1-5 minutes, then gently pat dry. Apply clindamycin as directed by dermatology. Cover draining wounds with Aquacel Ag (Silver) ([employer] order #[id number]) Cover with Mepilex border dressing. Wound Team Plan: Primary provider please review the wound care consult note and pending wound care order. If you agree with orders please file in EMR. While in bed patient should only be on one EHOB air mattress overlay, a fitted sheet, and one EHOB repositioning sheet with appropriate white chux. Please do not use brief while patient is resting in bed. Turn and reposition patient at least every 2 hours. Lori Baires RN, CWON 11/11/2024 5:44 PM Associated Order(s): Inpatient consult to Dermatology Inpatient consult to Dermatology Consult performed by: Brigitte Coy MD Consult ordered by: Claudio Plunkett MD Reason for consult: HS Reason For Consult HS History Of Present Illness Kevan La is a 49 y.o. 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 Dermatology was consulted for HS. Patient has been stopped on the HS clinical trial and is not going to be resumed on this medication. Patient states for the past few weeks at his SNF he has had some nausea and vomiting, which is typical for him when he is on antibiotic therapy. He denies fever, chills, or diarrhea. Endorses increased pain and wound drainage from the left buttock. He states the sites are exquisitely painful and even having the blanket over his thighs/buttocks is painful. Per IM notes: Patient last admitted at [facility] 10/11 - 10/23/2024 for a similar complaint including fatigue, malaise, leukocytosis and pain. CTAP showed worsening infection in L. gluteus randell with serpiginous fluid pockets c/w abscess which was 9.2 x 5.7 x 13.2cm in size. He was started on vanc/zosyn, and patient went for I&D with ACS 10/13 c/b arterial bleed which was stitched. Cultures grew mixed anaerobes and G+/G-. Blood cultures later resulted with staph hominis slackia exigua on 10/16 and ID was consulted with plan to continue Unasyn until 10/28/2024. He was discharged with PICC line to [facility] with plan to follow-up with Dermatology 11/12/2024 for HS-301 trial medication. On 11/08/2024 the patient was sent to [facility] from [facility] for possible sepsis. On arrival to the ED he was initially hypotensive but BP was normal upon cuff repositioning. CBC with WBC 13.9, Hb stable, CMP with stable renal function, lactate WNL, UA WNL, A1c WNL though he did have hypercalcemia 13.5 > 12.1 on repeat testing. He was treated as sepsis, with BCx/wound cultures drawn, V/Z started. CT pelvic showed large ulcerative wound at the left buttock with an adjacent 14.9 cm enhancing mass involving the left gluteal muscles and overlying subcutaneous tissue, larger than CT in 08/2024. There was no evidence of osteomyelitis. There were otherwise no events during his stay and he was transferred to [facility] for further care. The patient was seen at the bedside this evening at which time he states he was doing largely the same at the SNF but two days prior to his presentation he had episodes of NBNB emesis in the morning, one attributed to taking medications on an empty stomach and the other attributed to a bad breakfast. He otherwise was feeling ok but was told his pressures were lower and his infection appeared worse so was sent to the hospital. He denies fever, chills, chest pain, shortness of breath, abdominal pain, N/V/D, hematuria, dysuria, but does note severe constipation with no BM x7 days, though he is passing flatus regularly. He was able to tolerate food at [facility]. Patient notes he has been bedbound for some time now, since at least 06/2023 which he attributes to weakness in his legs/feet." HS history: He reports a history of HS from 2016. Previous therapies include doxycycline, minocycline, isotretinoin, clindamycin/rifampin, Humira, Remicade, staph decolonization for mupirocin, moxifloxacin/metronidazole, and apremilast. He was being treated by [facility]. Pt reports that he has been on multiple therapies and was not able to list all the medications he has previously tried. In 11/2023, he was started on clinical trial STOP HS-301 with povortcitinib, small molecule JAK1 inhibitor. Per clinical trial team this was stopped in September 2024 and he is not a candidate to resume the drug as his disease has continued to worsen. Past Medical History He has no past medical history on file. Surgical History He has no past surgical history on file. Social History He reports that he quit smoking about 38 years ago. His smoking use included cigarettes. He started smoking about 13 months ago. He has a 1.1 pack-year smoking history. He has never used smokeless tobacco. He reports that he does not currently use alcohol. He reports that he does not currently use drugs. Family History No family history on file. Allergies Patient has no known allergies. Home Medications Prior to Admission medications Medication Sig Start Date End Date Taking? Authorizing Provider acetaminophen (Tylenol) 325 mg tablet Take 3 tablets (975 mg) by mouth every 8 hours. 10/21/24 11/20/24 Frances Watts MD cholecalciferol, vitamin D3, (VITAMIN D3 ORAL) Take 10,000 Units by mouth once daily. Historical Provider, clindamycin (Cleocin T) 1 % gel Apply topically 2 times a day. Apply to left thigh around incision and drainage site, do not apply directly to surgery site 10/21/24 Frances Watts MD ferrous sulfate 325 (65 Fe) MG EC tablet Take 1 tablet by mouth once daily with breakfast. Do not crush, chew, or split. Historical Provider, ibuprofen 200 mg tablet Take 3 tablets (600 mg) by mouth every 6 hours if needed for mild pain (1 - 3). Historical Provider, lactose-reduced food (ENSURE PLUS ORAL) Take by mouth once daily in the morning. Historical Provider, mv-min/folic/K1/lycopen/lutein (MEN 50 PLUS MULTIVITAMIN ORAL) Take 1 tablet by mouth once daily. Historical Provider, polyethylene glycol (Glycolax, Miralax) 17 gram packet Take 17 g by mouth once daily. Patient taking differently: Take 17 g by mouth once daily as needed (constipation). 10/21/24 Frances Watts MD tiZANidine (Zanaflex) 2 mg tablet Take 1 tablet (2 mg) by mouth 3 times a day. 10/21/24 Frances Watts MD varenicline tartrate (Chantix) 0.5 mg tablet Take 1 tablet (0.5 mg) by mouth 2 times a day for 4 days, THEN 2 tablets (1 mg) 2 times a day. Take with full glass of water.. Do not fill before October 22, 2024. 10/22/24 01/19/25 Frances Watts MD alteplase (Cathflo Activase) 2 mg injection 2 mL (2 mg) by intra-catheter route if needed (as needed for occluded catheter lumen). 10/21/24 11/11/24 Frances Watts MD sennosides-docusate sodium (Leda-Colace) 8.6-50 mg tablet Take 2 tablets by mouth once daily. 10/23/24 11/11/24 Frances Watts MD Review of Systems Constitutional: Negative for chills, fatigue and fever. Gastrointestinal: Positive for nausea and vomiting. Negative for abdominal pain and diarrhea. Skin: Positive for wound. Physical Exam GEN: uncomfortable appearing NEURO: moving all extremities EYES: conjunctiva and eyelids normal. No conjunctival injection or erosions appreciated ENT: - Lips: normal - Teeth/gums: normal - Oropharynx: normal tongue and mucosa NECK: normal and symmetric. CV: no varicosities, warmth or tenderness of extremities. GI: Flat abdomen. Non-tender. No hepatosplenomegaly. LYMPH: no LAD EXTREMITIES: no distal digital clubbing, cyanosis, petechiae SKIN: A full body skin exam including scalp, face, eyes, ears, neck, trunk, bilateral upper & lower extremities, toenails and fingernails were examined with the following findings: - On the bilateral buttocks and gluteal cleft are many comedones, multiple indurated sinus tracts, and subcutaneous nodules. There is a large wound on the left buttocks with firm, indurated borders and actively draining yellow-white exudate. There is a new exophytic smooth nodule with draining sinus holes on the left thigh that is extremely tender with palpation and also firm, this nodule is new in comparison to clinical images from 1 month ago. Last Recorded Vitals Blood pressure 96/53, pulse 70, temperature 36.7 C (98.1 F), temperature source Temporal, resp. rate 16, height 2.006 m (6' 6.98"), weight 104 kg (230 lb), SpO2 95%. Relevant Results Results for orders placed or performed during the hospital encounter of 11/10/24 (from the past 24 hours) Magnesium Result Value Ref Range Magnesium 1.96 1.60 - 2.40 mg/dL CBC and Auto Differential Result Value Ref Range WBC 11.0 4.4 - 11.3 x10*3/uL nRBC 0.0 0.0 - 0.0 /100 WBCs RBC 2.95 (L) 4.50 - 5.90 x10*6/uL Hemoglobin 8.3 (L) 13.5 - 17.5 g/dL Hematocrit 26.3 (L) 41.0 - 52.0 % MCV 89 80 - 100 fL MCH 28.1 26.0 - 34.0 pg MCHC 31.6 (L) 32.0 - 36.0 g/dL RDW 16.5 (H) 11.5 - 14.5 % Platelets 524 (H) 150 - 450 x10*3/uL Neutrophils % 69.6 40.0 - 80.0 % Immature Granulocytes %, Automated 0.4 0.0 - 0.9 % Lymphocytes % 13.3 13.0 - 44.0 % Monocytes % 11.8 2.0 - 10.0 % Eosinophils % 4.2 0.0 - 6.0 % Basophils % 0.7 0.0 - 2.0 % Neutrophils Absolute 7.67 1.20 - 7.70 x10*3/uL Immature Granulocytes Absolute, Automated 0.04 0.00 - 0.70 x10*3/uL Lymphocytes Absolute 1.46 1.20 - 4.80 x10*3/uL Monocytes Absolute 1.30 (H) 0.10 - 1.00 x10*3/uL Eosinophils Absolute 0.46 0.00 - 0.70 x10*3/uL Basophils Absolute 0.08 0.00 - 0.10 x10*3/uL Comprehensive Metabolic Panel Result Value Ref Range Glucose 101 (H) 74 - 99 mg/dL Sodium 139 136 - 145 mmol/L Potassium 3.8 3.5 - 5.3 mmol/L Chloride 108 (H) 98 - 107 mmol/L Bicarbonate 26 21 - 32 mmol/L Anion Gap 9 (L) 10 - 20 mmol/L Urea Nitrogen 11 6 - 23 mg/dL Creatinine 1.40 (H) 0.50 - 1.30 mg/dL eGFR 61 >60 mL/min/1.73m*2 Calcium 11.2 (H) 8.6 - 10.6 mg/dL Albumin 2.8 (L) 3.4 - 5.0 g/dL Alkaline Phosphatase 71 33 - 120 U/L Total Protein 5.6 (L) 6.4 - 8.2 g/dL AST 6 (L) 9 - 39 U/L Bilirubin, Total 0.3 0.0 - 1.2 mg/dL ALT 9 (L) 10 - 52 U/L Magnesium Result Value Ref Range Magnesium 1.98 1.60 - 2.40 mg/dL Vancomycin Result Value Ref Range Vancomycin 27.0 (H) 5.0 - 20.0 ug/mL Phosphorus Result Value Ref Range Phosphorus 2.7 2.5 - 4.9 mg/dL No results found. Scheduled medications acetaminophen, 975 mg, oral, TID chlorhexidine, , Topical, BID clindamycin, , Topical, BID enoxaparin, 40 mg, subcutaneous, q24h melatonin, 3 mg, oral, Nightly piperacillin-tazobactam, 3.375 g, intravenous, q6h polyethylene glycol, 17 g, oral, BID sennosides-docusate sodium, 2 tablet, oral, BID vancomycin, 1,500 mg, intravenous, q24h varenicline tartrate, 1 mg, oral, BID Continuous medications sodium chloride 0.9%, 200 mL/hr, Last Rate: 200 mL/hr (11/11/24 1639) PRN medications PRN medications: naloxone, ondansetron, oxyCODONE, oxyCODONE, vancomycin Assessment/Plan Differential diagnoses: HS flare with possible infection. Cannot rule out infection and malignancy. Impression: Patient's clinical presentation is most consistent with a flare of HS and patient is noted to have a normal white count. However, given his elevated CRP, increased drainage from HS on the left buttocks with significant worsening pain, cannot rule out a superimposed soft tissue infection. We will obtain a tissue culture of the left thigh nodule to aid with appropriate antibiotic therapy. Unfortunately, patient has failed many previous treatments including augmentin, doxycycline, minocycline, isotretinoin, clindamycin/rifampin, Humira, Remicade, staph decolonization for mupirocin, moxifloxacin/metronidazole, and apremilast. He also is no longer a candidate for the clinical trial medication. Additionally, there is concern with his rapid disease progression about malignancy, as chronic HS is a risk factor for squamous cell carcinoma. We will biopsy the indurated border the predominant wound of the left buttock as well as the new, firm nodule (appeared within last month) on the left thigh to assess for malignancy. We will also start the process of initiating the patient on a different biologic therapy with an IL17A and F inhibitor, as he has not been on this class of agents in the past. Recommendations: - Agree with continuing vanc/zosyn pending wound cultures. Will follow cultures already obtained at [facility] and will obtain tissue culture 11/12/24. - Plan for biopsy 11/12/24 to rule out malignancy with appearance of new, firm lesions - Continue hibiclens wash BID, topical clindamycin BID, and wound care - Patient will need diligent wound care once discharged. Recommend initiating process of arranging home wound care. - We will make sure he has follow up from dermatology standpoint as well. - Will start orders for approval from insurance for Bimzelx (IL17A/F inhibitor) - Patient appears overdue for biologic labs, please order: Quant TB, HIV, Hep B surface antigen/antibody, Hep B core antibody, and Hep C testing The patient was seen and discussed with attending physician Dr. Mesa. The assessment and plan was communicated to the care team. Thank you for the consultation and for the opportunity to contribute to the care of this patient. Brigitte Coy MD PGY2, Dermatology I saw and evaluated the patient. I personally obtained the gomez and critical portions of the history and physical exam or was physically present for gomez and critical portions performed by the resident. I reviewed the resident's documentation and discussed the patient with the resident. I agree with the resident's medical decision making as documented in the note. Lauri Mesa MD Nutrition Assessment Reason for Assessment: Provider consult order Patient is a 49 y.o. male with hidradenitis suppurativa with recent incision and drainage of left gluteal disease. Pt transferred from [facility] with worsened pain, swelling and drainage from the left hip/gluteal region Patient underwent I&D with acute care surgery on 10/13. ACS consulted for consideration of repeat I&D. Past Medical History severe hidradenitis supprativa (disease on left buttock and gluteal fold) on STOP HS-301 trial (povorcitinib, small molecule JAK1 inhibitor) Nutrition History: Energy Intake: Good > 75 % (Patient reports eating 100% of dinner last night - "chicken parmesan, tater tots and lemon meringue pie". ) Patient with good appetite, but states he hasn't been eating well at the SNF due to poor quality of food. Reports receiving 3 meals a day, but eating < half. States he receives a 4 oz "protein drink" intermittently. At home (baseline), patient eats 2 meals a day (lunch and dinner) and drinks an Ensure for breakfast. Patient amenable to receiving 1 Ensure daily while admitted. Declined offer for Ensure BID. Allergy to banana and avocado. Anthropometrics: Height: 200.6 cm (6' 6.98") Weight: 104 kg (230 lb) BMI (Calculated): 25.93 IBW/kg (Dietitian Calculated): 100 kg Percent of IBW: 104.3 % Weight History: Wt Readings from Last 15 Encounters: 11/11/24 104 kg (230 lb) ? 11/08/24 104 kg (230 lb) ? 10/11/24 101 kg (222 lb) 09/13/24 101 kg (222 lb 3.6 oz) 09/12/24 102 kg (225 lb) Weight Change %: Weight History / % Weight Change: Patient reports being weighed 1 week ago at his SNF at 199 lbs. This suggests a 13.5% weight loss in < 1 week. Using the end of September wt, patient with 10.4% wt loss x ~ 3 weeks. Significant Weight Loss: Yes Nutrition Focused Physical Exam Findings: Subcutaneous Fat Loss: Orbital Fat Pads: Mild-Moderate (slight dark circles and slight hollowing) Buccal Fat Pads: Mild-Moderate (flat cheeks, minimal bounce) Triceps: Mild-Moderate (less than ample fat tissue) Ribs: Defer Muscle Wasting: Temporalis: Mild-Moderate (slight depression) Pectoralis (Clavicular Region): Mild-Moderate (some protrusion of clavicle) Deltoid/Trapezius: Well nourished (rounded appearance at arm, shoulder, neck) Interosseous: Mild-Moderate (slightly depressed area between thumb and forefinger) Trapezius/Infraspinatus/Supraspin atus (Scapular Region): Defer Quadriceps: Defer Gastrocnemius: Defer Edema: Edema: none Physical Findings: Skin: Positive (Chronic left thigh/hip hidradenitis) Digestive System Findings: Constipation ("maybe") Mouth Findings: (None.) Nutrition Significant Labs: CBC Trend: Results from last 7 days Lab Units 11/11/24 0930 11/10/24 0530 WBC AUTO x10*3/uL 11.0 11.8* RBC AUTO x10*6/uL 2.95* 3.12* HEMOGLOBIN g/dL 8.3* 8.8* HEMATOCRIT % 26.3* 27.6* MCV fL 89 89 PLATELETS AUTO x10*3/uL 524* 570* , BMP Trend: Results from last 7 days Lab Units 11/11/24 0930 11/10/24 0529 GLUCOSE mg/dL 101* 103* CALCIUM mg/dL 11.2* 11.8* SODIUM mmol/L 139 139 POTASSIUM mmol/L 3.8 3.8 CO2 mmol/L 26 25 CHLORIDE mmol/L 108* 104 BUN mg/dL 11 16 CREATININE mg/dL 1.40* 1.44* , A1C: Lab Results Component Value Date HGBA1C 6.0 (H) 09/14/2024 , BG POCT trend: , Renal Lab Trend: Results from last 7 days Lab Units 11/11/24 0930 11/11/24 0558 11/10/24 0529 POTASSIUM mmol/L 3.8 -- 3.8 PHOSPHORUS mg/dL 2.7 -- -- SODIUM mmol/L 139 -- 139 MAGNESIUM mg/dL 1.98 < > 1.72 EGFR mL/min/1.73m*2 61 -- 59* BUN mg/dL 11 -- 16 CREATININE mg/dL 1.40* -- 1.44* < > = values in this interval not displayed. , Vit D: Lab Results Component Value Date VITD25 79 11/10/2024 , Vit B12: No results found for: [id number] Nutrition Specific Medications: Scheduled medications acetaminophen, 975 mg, oral, TID chlorhexidine, , Topical, BID clindamycin, , Topical, BID enoxaparin, 40 mg, subcutaneous, q24h melatonin, 3 mg, oral, Nightly piperacillin-tazobactam, 3.375 g, intravenous, q6h polyethylene glycol, 17 g, oral, BID sennosides-docusate sodium, 2 tablet, oral, BID vancomycin, 1,500 mg, intravenous, q24h varenicline tartrate, 1 mg, oral, BID Continuous medications sodium chloride 0.9%, 200 mL/hr, Last Rate: 200 mL/hr (11/11/24 0402) PRN medications PRN medications: naloxone, ondansetron, oxyCODONE, oxyCODONE, vancomycin I/O: Last BM Date: 11/10/24; Dietary Orders (From admission, onward) Start Ordered 11/11/24 0001 NPO Diet Except: Sips with meds; Effective midnight Diet effective midnight Question: Except: Answer: Sips with meds 11/10/24 1022 11/10/24 0427 May Participate in Room Service ( ROOM SERVICE MAY PARTICIPATE) Once Question: . Answer: Yes 11/10/24 0426 Estimated Needs: Total Energy Estimated Needs in 24 hours (kCal): 2700 kCal Method for Estimating Needs: IBW / 27 kcal Total Protein Estimated Needs in 24 Hours (g): 135 g Method for Estimating 24 Hour Protein Needs: IBW / 1.35 g Nutrition Diagnosis Malnutrition Diagnosis Patient has Malnutrition Diagnosis: Yes Malnutrition Diagnosis: Moderate malnutrition related to acute disease or injury As Evidenced by: meeting < 75% of EER for > 1 week, mild fat loss and muscle wasting and 10.2% weight loss x ~ 3 weeks. Nutrition Diagnosis Patient has Nutrition Diagnosis: Yes Diagnosis Status (1): New Nutrition Diagnosis 1: Increased nutrient needs Related to (1): Increased metabolic demand As Evidenced by (1): hidradentitis suppurativa infection Nutrition Interventions/Recommendations Nutrition prescription for oral nutrition Nutrition Recommendations: Individualized Nutrition Prescription Provided for : Regular diet. Ensure Plus (350 kcal and 13 g protein) ordered daily. Order daily MVI Obtain Vitamin D level. Nutrition Interventions/Goals: Interventions: Medical food supplement, Meals and snacks Education Documentation Encourage continued good PO intake. Encourage Ensure to promote wound healing. Nutrition Monitoring and Evaluation Food/Nutrient Related History Monitoring Monitoring and Evaluation Plan: Intake / amount of food Intake / Amount of food: Consumes at least 75% or more of meals/snacks/supplements Anthropometric Measurements Monitoring and Evaluation Plan: Body weight Body Weight: Body weight - Maintain stable weight Biochemical Data, Medical Tests and Procedures Criteria: Labs wnl Physical Exam Findings Monitoring and Evaluation Plan: Skin Skin Finding: Imparied wound healing - Skin to heal Goal Status: New goal(s) identified Time Spent (min): 45 minutes Associated Order(s): IP CONSULT TO ACUTE CARE SURGERY [facility] ACUTE CARE SURGERY - HISTORY AND PHYSICAL / CONSULT Patient Name: Kevan La Admit Date: [id number] : 1975 AGE: 49 y.o. GENDER: male TODAY'S ASSESSMENT AND PLAN OF CARE: 49 year old male with significant history of hidradenitis suppurativa, who recently underwent I&D with acute care surgery on 10/13, was transferred from [facility] with concern of a gluteal fluid collection. Acute care surgery was consulted for consideration of repeat I&D. Patient is currently hemodynamically stable. - No emergent surgical intervention indicated at this time. Will need to review imaging for possible mass vs infection before potential surgical intervention. Radiology imaging request sent for CT pelvis from [facility]. if not able to transfer imaging from [facility], may need repeat CT scan. Tadeo Cano MD PGY 5 General Surgery Acute Care Surgery [id number] CHIEF COMPLAINT/REASON FOR CONSULT: 49 year old male with significant history of hidradenitis suppurativa, who recently underwent I&D with acute care surgery on 10/13, was transferred from [facility] with concern of a gluteal fluid collection. Acute care surgery was consulted for consideration of repeat I&D. Briefly this patient has a history of refractory HS and did not respond to multiple lines of treatment. He was admitted [place] [facility] between 10/11-10/23 and underwent I&D on 10/13 for infection control. He had positive blood culture and was on antibiotics. He was eventually discharged to [facility]. On 11/08 patient was brought to [facility] for concern of sepsis. He was started on antibiotics. CT scan was done, which per report showed left buttock wound with adjacent 14.9cm enhancing mass. Patient himself reports that he has been having more drainage and odor from his multiple wounds. There seems to be a new spot where the drainage is coming from. There is some tenderness around the wounds but pain is under reasonable control. PAST MEDICAL HISTORY: PMH: hidradenitis suppurativa No past medical history on file. PSH: I&D gluteal abscess No past surgical history on file. FH: No family history on file. SOCIAL HISTORY: Smoking: Social History Tobacco Use Smoking Status Former Current packs/day: 1.00 Average packs/day: 1 pack/day for 1.1 years (1.1 ttl pk-yrs) Types: Cigarettes Start date: 2023 Quit date: 1986 Smokeless Tobacco Never Alcohol: Social History Substance and Sexual Activity Alcohol Use Not Currently Drug use: denies MEDICATIONS: Prior to Admission medications Medication Sig Start Date End Date Taking? Authorizing Provider acetaminophen (Tylenol) 325 mg tablet Take 3 tablets (975 mg) by mouth every 8 hours. 10/21/24 11/20/24 Frances Watts MD alteplase (Cathflo Activase) 2 mg injection 2 mL (2 mg) by intra-catheter route if needed (as needed for occluded catheter lumen). 10/21/24 Frances Watts MD cholecalciferol, vitamin D3, (VITAMIN D3 ORAL) Take 10,000 Units by mouth once daily. Historical Provider, clindamycin (Cleocin T) 1 % gel Apply topically 2 times a day. Apply to left thigh around incision and drainage site, do not apply directly to surgery site 10/21/24 Frances Watts MD ferrous sulfate 325 (65 Fe) MG EC tablet Take 1 tablet by mouth once daily with breakfast. Do not crush, chew, or split. Historical Provider, polyethylene glycol (Glycolax, Miralax) 17 gram packet Take 17 g by mouth once daily. 10/21/24 Frances Watts MD sennosides-docusate sodium (Leda-Colace) 8.6-50 mg tablet Take 2 tablets by mouth once daily. 10/23/24 Frances Watts MD tiZANidine (Zanaflex) 2 mg tablet Take 1 tablet (2 mg) by mouth 3 times a day. 10/21/24 Frances Watts MD varenicline tartrate (Chantix) 0.5 mg tablet Take 1 tablet (0.5 mg) by mouth 2 times a day for 4 days, THEN 2 tablets (1 mg) 2 times a day. Take with full glass of water.. Do not fill before October 22, 2024. 10/22/24 01/19/25 Frances Watts MD ALLERGIES: No Known Allergies REVIEW OF SYSTEMS: Review of system otherwise negative other than mentioned in HPI. PHYSICAL EXAM: General: Middle aged male, resting in bed, in no acute distress. Eyes: EOM intact, no scleral icterus Mouth: Mucous membranes moist Heart: Regular rate and rhythm Lungs: No increased work of breathing, on room air Abdomen: Soft, non-distended, non-tender Extremities: No deformities, no peripheral edema Neurologic: Awake, alert and oriented Psychiatric: Normal mood and affect Skin:Left gluteal open wound about 6cm diameter, with pink clean base with small amount if fibrinous tissue. Small wound about 1cm nearby, appears clean. Inferior to it there is a 3cm diameter raised pink lump with some drainage. Tender to palpation in between. IMAGING SUMMARY: (summary of findings, not a copy of dictation) Prior imaging reviewed. Need to review most recent CT from [facility] for comparison, radiology request sent. LABS: Results from last 7 days Lab Units 11/10/24 0530 WBC AUTO x10*3/uL 11.8* HEMOGLOBIN g/dL 8.8* HEMATOCRIT % 27.6* PLATELETS AUTO x10*3/uL 570* NEUTROS PCT AUTO % 69.5 LYMPHS PCT AUTO % 14.9 MONOS PCT AUTO % 10.3 EOS PCT AUTO % 4.1 Results from last 7 days Lab Units 11/10/24 1027 APTT seconds 27 INR 1.4* Results from last 7 days Lab Units 11/10/24 1026 11/10/24 0529 SODIUM mmol/L -- 139 POTASSIUM mmol/L -- 3.8 CHLORIDE mmol/L -- 104 CO2 mmol/L -- 25 BUN mg/dL -- 16 CREATININE mg/dL -- 1.44* CALCIUM mg/dL -- 11.8* PROTEIN TOTAL g/dL 6.5 6.6 BILIRUBIN TOTAL mg/dL -- 0.4 ALK PHOS U/L -- 68 ALT U/L -- 8* AST U/L -- 8* GLUCOSE mg/dL -- 103* Results from last 7 days Lab Units 11/10/24 0529 BILIRUBIN TOTAL mg/dL 0.4 I have reviewed all laboratory and imaging results ordered/pertinent for this encounter. I saw and evaluated the patient. I personally obtained the gomez and critical portions of the history and physical exam. I reviewed the resident s documentation and discussed the patient with the resident. I agree with the resident s medical decision making as documented in the resident s note. 49M with hidradenitis suppurativa with recent incision and drainage of left gluteal disease. Pt transferred from [facility] with worsened pain, swelling and drainage from the left hip/gluteal region. On our exam, pt comfortable. Multiple sinus tracts of the left hip, thigh, and gluteal area with significant erythema and tenderness of the left hip. Prior wound packed with kerlix and appears healthy. There is an area of particular fluctuance distal to the prior I&D site on the lateral left thigh. Labs notable for wbc 11.8. CT report from [facility] notes concern for a 15cm enhancing gluteal mass however images not available. We have requested images from [facility] and will evaluate these prior to determining whether further drainage or biopsy are needed. Eitan Muhammad MD Trauma, Critical Care, and Acute Care Surgery Pager: [phone] Associated Order(s): Inpatient consult to Endocrinology Inpatient consult to Endocrinology Consult performed by: Whit Griffith MD Consult ordered by: Claudio Plunkett MD Reason For Consult Hypercalcemia History Of Present Illness 49 y.o. patient with refractory hidradenitis supprativa (HS) not responding to povorcitinib (RCT candidate), apremilast, isotretinoin, adalimumab, infliximab, moxifloxacin/metronidazole, minocyclin, clindamycin, rifampin, augmentin and doxycycline, subacute PARUL? 2/2 NSAIDs use for HS?, returning to [facility] 11/10/2024 as a transfer from [facility] regarding 14cm gluteal fluid collection. Notably the patient was recently admitted to [facility] 10/11 - 10/23/2024 for a similar complaint, imaging showed showed worsening infection in L. gluteus randell with serpiginous fluid pockets c/w abscess (9.2 x 5.7 x 13.2cm). He was started on broad spectrum iv antibiotics , underwent I&D with ACS on 10/13 c/b arterial bleed which was stitched. He was discharged with PICC line to [facility] with plan to follow-up with Dermatology 11/12/2024 for HS-301 trial medication. On 11/08/2024 the patient was sent to [facility] from [facility] for possible sepsis. On arrival to the ED he was initially transiently hypotensive, labs showed leukocytosis, low Hb stable, CMP with stable renal function, creat 1.4, hypercalcemia 13.5 > 12.1 on repeat testing.(No specific workup of treatment were done) He was treated as sepsis, with BCx/wound cultures drawn, V/Z started. CT pelvic showed large ulcerative wound at the left buttock with an adjacent 14.9 cm enhancing mass involving the left gluteal muscles and overlying subcutaneous tissue, larger than CT in 08/2024. There was no evidence of osteomyelitis. There were otherwise no events during his stay and he was transferred to [facility] for further care. The patient was seen at the bedside this evening at which time he states he was doing largely the same at the SNF but two days prior to his presentation he had episodes of NBNB emesis in the morning, one attributed to taking medications on an empty stomach and the other attributed to a bad breakfast. He otherwise was feeling ok but was told his pressures were lower and his infection appeared worse so was sent to the hospital. He denies fever, chills, chest pain, shortness of breath, abdominal pain, N/V/D, hematuria, dysuria, but does note severe constipation with no BM x7 days, though he is passing flatus regularly. He was able to tolerate food at [facility]. Patient notes he has been bedbound for some time now, since at least 06/2023 which he attributes to weakness in his legs/feet. Bouts of confusion: Denies Low energy, with fatigue for the past 6 months. No sleep disturbance: Mentioned he sleeps for long hours every day Stable appetite , endorses 20 pounds weight loss in the past 3 weeks since he was transferred to the correction Denies any chest pain, shortness of breath, palpitations. Had on and off constipation for the past year, especially in the last 7 days. Denies polyuria, has polydipsia? No reports of tremors, muscle weakness, cramps, tingling. Denies any hot flashes or night sweats. No heat/cold intol reports nausea/vomit, NO abdominal pain Kidney stones: bladder caluli on CT 10/2024 History of traumatic fracture 35 years ago GERD denies Drugs: No anti-acid/TUMS, no Li, noThiazidE takes vitamin D 10,000 unit, however noncompliant Does not take separate calcium pill Drinks 3 cups of milk every day. Drinks 2-3 bottles of sparkling ice about 500 mL each Juices plus tea.. He mentioned that he has been bedridden [except for using the restroom] since he was admitted in September to the hospital, as he was not receiving any PT at the correction. He also mentioned that his activity level started decreasing since June 2024, after his diagnosis with left gluteal abscess. He mentioned he fears that his legs will not be able to bear his weight. Received 1.5 ml of NS since 5 AM on 11/10/2024, will be followed by 200 ml/h of NSS afterwards. Past Medical History As mentioned above Surgical History Per chart review Social History He reports that he quit smoking about 38 years ago. His smoking use included cigarettes. He started smoking about 13 months ago. He has a 1.1 pack-year smoking history. He has never used smokeless tobacco. He reports that he does not currently use alcohol. He reports that he does not currently use drugs. Family History - Allergies Patient has no known allergies. Review of Systems Negative except for what is mentioned above. Physical Exam Constitutional: Well developed, awake/alert/oriented x3, no distress, alert and cooperative, obese Eyes: EOMI, clear sclera ENMT: mucous membranes moist, no apparent injury, no lesions seen Head/Neck: Neck supple, no apparent injury Respiratory/Thorax: Patent airways, CTAB, normal breath sounds with good chest expansion, thorax symmetric Cardiovascular: Regular, rate and rhythm, 2+ equal pulses of the extremities, normal S 1and S 2 Gastrointestinal: Nondistended, soft, non-tender, no rebound tenderness or guarding Musculoskeletal: ROM intact, normal strength Extremities: normal extremities, no edema Neurological: alert and oriented x3, CN's grossly intact, normal relaxation phase of DTRs Psychological: Low mood Skin: Warm and dry, no lesions, no rashes, left gluteal abscess. ROS, PMH, FH/SH, surgical history and allergies have been reviewed. Last Recorded Vitals Blood pressure 107/52, pulse 80, temperature 37 C (98.6 F), resp. rate 17, height 2.006 m (6' 6.98"), SpO2 94%. Relevant Results Results from last 7 days Lab Units 11/10/24 0529 GLUCOSE mg/dL 103* Scheduled medications acetaminophen, 975 mg, oral, TID clindamycin, , Topical, BID [Held by provider] enoxaparin, 40 mg, subcutaneous, q24h melatonin, 3 mg, oral, Nightly piperacillin-tazobactam, 3.375 g, intravenous, q6h polyethylene glycol, 17 g, oral, BID sennosides-docusate sodium, 2 tablet, oral, BID sodium chloride, 1,000 mL, intravenous, Once vancomycin, 1,000 mg, intravenous, q12h varenicline tartrate, 1 mg, oral, BID Continuous medications sodium chloride 0.9%, 200 mL/hr PRN medications PRN medications: naloxone, ondansetron, oxyCODONE, vancomycin -11/10/24: Ionized Real 1.69 Latest Reference Range & Units 10/17/24 19:26 10/18/24 07:06 10/19/24 10:22 10/19/24 14:20 10/20/24 07:35 10/21/24 04:59 10/22/24 05:53 10/23/24 05:31 11/10/24 05:29 11/10/24 05:30 GLUCOSE 74 - 99 mg/dL 98 97 124 (H) 98 102 (H) 98 111 (H) 98 103 (H) SODIUM 136 - 145 mmol/L 136 139 140 139 141 139 136 137 139 POTASSIUM 3.5 - 5.3 mmol/L 4.3 4.0 4.0 4.3 4.5 4.4 4.2 4.3 3.8 CHLORIDE 98 - 107 mmol/L 99 101 102 103 104 103 100 101 104 Bicarbonate 21 - 32 mmol/L 27 27 25 29 27 26 26 27 25 Anion Gap 10 - 20 mmol/L 14 15 17 11 15 14 14 13 14 Blood Urea Nitrogen 6 - 23 mg/dL 17 17 15 16 17 20 18 20 16 Creatinine 0.50 - 1.30 mg/dL 1.62 (H) 1.72 (H) 1.67 (H) 1.55 (H) 1.39 (H) 1.55 (H) 1.43 (H) 1.37 (H) 1.44 (H) EGFR >60 mL/min/1.73m*2 51 (L) 48 (L) 49 (L) 54 (L) 61 54 (L) 59 (L) 62 59 (L) Calcium 8.6 - 10.6 mg/dL 10.4 10.1 10.2 10.2 10.4 10.0 10.3 10.2 11.8 (H) PHOSPHORUS 2.5 - 4.9 mg/dL 3.8 3.7 3.2 3.4 3.2 3.9 3.1 3.7 Albumin 3.4 - 5.0 g/dL 3.7 3.4 3.4 3.1 (L) Alkaline Phosphatase 33 - 120 U/L 70 76 68 ALT 10 - 52 U/L 17 28 8 (L) AST 9 - 39 U/L 18 25 8 (L) Total Protein 6.4 - 8.2 g/dL 7.1 7.2 6.6 MAGNESIUM 1.60 - 2.40 mg/dL 2.25 2.13 2.25 2.13 2.03 1.94 2.00 1.72 Parathyroid Hormone, Intact 18.5 - 88.0 pg/mL <6.3 (L) Vitamin D, 25-Hydroxy, Total 30 - 100 ng/mL 79 (H): Data is abnormally high (L): Data is abnormally low Assessment/Plan 49 y.o. patient with refractory hidradenitis supprativa (HS) not responding to povorcitinib (RCT candidate), apremilast, isotretinoin, adalimumab, infliximab, moxifloxacin/metronidazole, minocyclin, clindamycin, rifampin, augmentin and doxycycline, subacute APRUL? 2/2 NSAIDs use for HS?, returning to [facility] 11/10/2024 as a transfer from [facility] regarding 14cm gluteal fluid collection. Endocrinology consulted for management of hypercalcemia. PTH less than 6.3, concomitant corrected calcium (calcium 11.8, albumin 3.1), ionized calcium 1.69. Vitamin D 79 (nontoxic level). Creatinine 1.4, GFR 59, hemoglobin 8.8. #mild to moderate symptomatic hypocalcemia, non-PTH mediated In the setting of recent immobility, big left gluteal abscess, no osteomyelitis, possibly increased dietary calcium intake Subacute kidney injury, and anemia, with recent weight loss, rule out multiple myeloma No longer on isotretinoin, rest of medications reviewed, not usually associated with hypercalcemia Recommendations: -iv hydration NSS 200 mL/h -Continue to monitor accurate U/O and ins and outs -repeat RFP in evening, ADD PHOSPHORUS, again tomorrow 11/11 in AM. -add 1.25-Vit D -follow up PTHrP, SPEP/UPEP, 24h U calcium (currently patient receiving IV hydration, no diuretics) -stop vit D supplements -Endocrinology will continue to follow Plan communicated to primary team via secure messaging system. Patient seen and case discussed with Dr. Radha Griffith MD Endocrinology fellow, PGY 5 Endocrinology pager [phone], secure message 8 AM to 5 PM. Cosigned by Bee Raymond MD at 11/11/2024 8:59 AM EST Associated attestation - Bee Manzano MD - 11/11/2024 8:59 AM EST I saw and evaluated the patient. I personally obtained the gomez and critical portions of the history and physical exam or was physically present for gomez and critical portions performed by the resident/fellow. I reviewed the resident/fellow's documentation and discussed the patient with the resident/fellow. I agree with the resident/fellow's medical decision making as documented in the note. Associated Order(s): PHARMACY TO DOSE VANCO Vancomycin Dosing by Pharmacy- INITIAL Kevan La is a 49 y.o. year old male who Pharmacy has been consulted for vancomycin dosing for cellulitis, skin and soft tissue. Based on the patient's indication and renal status this patient will be dosed based on a goal AUC of 400-600. Renal function is currently improving. Visit Vitals BP 91/55 Pulse 75 Temp 37.2 C (99 F) Resp 17 Lab Results Component Value Date CREATININE 1.37 (H) 10/23/2024 CREATININE 1.43 (H) 10/22/2024 CREATININE 1.55 (H) 10/21/2024 CREATININE 1.39 (H) 10/20/2024 Patient weight is as follows: There were no vitals filed for this visit. Cultures: No results found for the encounter in last 14 days. No intake/output data recorded. I/O during current shift: No intake/output data recorded. Temp (24hrs), Av.9 C (98.5 F), Min:36.7 C (98 F), Max:37.2 C (99 F) Assessment/Plan Patient will start on 1000 mg Q12h. This dosing regimen is predicted by [employer] to result in the following pharmacokinetic parameters: Regimen: 1000 mg IV every 12 hours. Start time: 05:30 on 11/10/2024 Exposure target: AUC24 (range)400-600 mg/L.hr [id number]: 380 mg/L.hr AUC24,ss: 507 mg/L.hr Probability of AUC24 > 400: 76 % Follow-up level tomorrow morning. Will continue to monitor renal function daily while on vancomycin and order serum creatinine at least every 48 hours if not already ordered. Follow for continued vancomycin needs, clinical response, and signs/symptoms of toxicity. Long K Kocel, PharmD documented in this encounter [facility] Work Phone: 11-15-2024 Procedure note Associated Ord er(s): Biopsy Post-Procedure Diagnose(s): Skin lesion Biopsy Date/Time: 11/15/2024 11:31 AM Performed by: Brigitte Coy MD Authorized by: Lauri Mesa MD Consent: Consent obtained: Verbal Consent given by: Patient Risks, benefits, and alternatives were discussed: yes Risks discussed: Bleeding, infection, pain and poor cosmetic result Alternatives discussed: No treatment [place] protocol: Procedure explained and questions answered to patient or proxy's satisfaction: yes Relevant documents present and verified: yes Site/side marked: yes Immediately prior to procedure, a time out was called: yes Patient identity confirmed: Verbally with patient Indications: Indications: Diagnostic uncertainty Anesthesia: Anesthesia method: Local infiltration Local anesthetic: Lidocaine 1% WITH epi Procedure specific details: Punch Biopsy Procedure Note Pre-operative Diagnosis: squamous cell carcinoma vs. Chronic HS wound Post-operative Diagnosis: same Locations: Specimen A: Ulcer proximal B: Ulcer distal Indications: diagnostic uncertainty Procedure Details: Patient informed of the risks (including bleeding and infection) and benefits of the procedure and verbal informed consent obtained. The lesion and surrounding area was given a sterile prep using alcohol and draped in the usual sterile fashion. The skin was then stretched perpendicular to the skin tension lines and the lesions were removed using the 6mm punch. The resulting ellipse was then closed. The wound(s) were closed with Gelfoam. Vaseline ointment and a sterile dressing applied. The specimen was sent for pathologic examination. The patient tolerated the procedure well. EBL: 0 ml Plan: 1. For wound care, keep bandage on for 24 hours and to avoid bathing until then. Afterwards, continue to wash with soap and water daily, change bandage daily with Vaseline application x 7 days. Post-procedure details: Procedure completion: Tolerated well, no immediate complications I was present during all critical and gomez portions of the procedure(s) and immediately available to furnish services the entire duration. See resident note for details. Lauri Mesa MD Associated Order(s): Biopsy Post-Procedure Diagnose(s): Hidradenitis suppurativa Biopsy Date/Time: 11/12/2024 9:00 AM Performed by: Brigitte Coy MD Authorized by: Lauri Mesa MD Consent: Consent obtained: Verbal Consent given by: Patient Risks, benefits, and alternatives were discussed: yes Risks discussed: Bleeding, infection, pain and poor cosmetic result Alternatives discussed: No treatment [place] protocol: Procedure explained and questions answered to patient or proxy's satisfaction: yes Relevant documents present and verified: yes Site/side marked: yes Immediately prior to procedure, a time out was called: yes Patient identity confirmed: Verbally with patient Indications: Indications: Diagnostic uncertainty Anesthesia: Anesthesia method: Local infiltration Local anesthetic: Lidocaine 1% WITH epi Procedure specific details: Punch Biopsy Procedure Note Pre-operative Diagnosis: Hidradenitis suppurativa vs. Squamous cell carcinoma Post-operative Diagnosis: same Locations: Specimen A: thigh nodule B: left buttocks wound; tissue culture from left thigh nodule Indications: diagnostic uncertainty Procedure Details: Patient informed of the risks (including bleeding and infection) and benefits of the procedure and verbal informed consent obtained. The lesion and surrounding area was given a sterile prep using alcohol and draped in the usual sterile fashion. The skin was then stretched perpendicular to the skin tension lines and the lesions were removed using the 4mm punch. The resulting ellipse was then closed. The wound(s) were packed with surgifoam for hemostasis. Vaseline ointment and a sterile dressing applied. The specimen was sent for pathologic examination. The patient tolerated the procedure well. EBL: 0 ml Plan: 1. For wound care, keep bandage on for 24 hours and to avoid bathing until then. Afterwards, continue to wash with soap and water daily, change bandage daily with Vaseline application x 7 days. Post-procedure details: Procedure completion: Tolerated well, no immediate complications I was present during all critical and gomez portions of the procedure(s) and immediately available to furnish services the entire duration. See resident note for details. Lauri Mesa MD documented in this encounter [facility] Work Phone: 11-10-2024 History and physical note History Of Present Illness Kevan La is a 49 y.o. male with refractory hidradenitis supprativa (HS) not responding to povorcitinib (RCT candidate), apremilast, isotretinoin, adalimumab, infliximab, moxifloxacin/metronidazole, minocyclin, clindamycin, rifampin, augmentin and doxycycline, returning to [facility] 11/10/2024 as a transfer from [facility] regarding 14cm gluteal fluid collection. Notably the patient was recently admitted to [facility] 10/11 - 10/23/2024 for a similar complaint including fatigue, malaise, leukocytosis and pain. CTAP showed worsening infection in L. gluteus randell with serpiginous fluid pockets c/w abscess which was 9.2 x 5.7 x 13.2cm in size. He was started on V/Z, and patient went for I&D with ACS 10/13 c/b arterial bleed which was stitched. Cultures grew mixed anaerobes and G+/G-. Blood cultures later resulted with staph hominis slackia exigua on 10/16 and ID was consulted with plan to continue Unasyn until 10/28/2024. He was discharged with PICC line to [facility] with plan to follow-up with Dermatology 11/12/2024 for HS-301 trial medication. On 11/08/2024 the patient was sent to [facility] from [facility] for possible sepsis. On arrival to the ED he was initially hypotensive but BP was normal upon cuff repositioning. CBC with WBC 13.9, Hb stable, CMP with stable renal function, lactate WNL, UA WNL, A1c WNL though he did have hypercalcemia 13.5 > 12.1 on repeat testing. He was treated as sepsis, with BCx/wound cultures drawn, V/Z started. CT pelvic showed large ulcerative wound at the left buttock with an adjacent 14.9 cm enhancing mass involving the left gluteal muscles and overlying subcutaneous tissue, larger than CT in 08/2024. There was no evidence of osteomyelitis. There were otherwise no events during his stay and he was transferred to [facility] for further care. The patient was seen at the bedside this evening at which time he states he was doing largely the same at the SNF but two days prior to his presentation he had episodes of NBNB emesis in the morning, one attributed to taking medications on an empty stomach and the other attributed to a bad breakfast. He otherwise was feeling ok but was told his pressures were lower and his infection appeared worse so was sent to the hospital. He denies fever, chills, chest pain, shortness of breath, abdominal pain, N/V/D, hematuria, dysuria, but does note severe constipation with no BM x7 days, though he is passing flatus regularly. He was able to tolerate food at [facility]. Patient notes he has been bedbound for some time now, since at least 06/2023 which he attributes to weakness in his legs/feet. Review of Systems 10 point ROS performed and negative unless stated above. Past Medical History As above Surgical History He has no past surgical history on file. Social History He reports that he quit smoking about 38 years ago. His smoking use included cigarettes. He started smoking about 13 months ago. He has a 1.1 pack-year smoking history. He has never used smokeless tobacco. He reports that he does not currently use alcohol. He reports that he does not currently use drugs. Family History No family history on file. Allergies Patient has no known allergies. Physical Exam General: Comfortable appearing older male in bed in NAD HEENT: MMM, EOMI, PERRLA Pulm: CTAB, no increased WOB on RA Abdomen: Somewhat distended and sensitive but not tender. BS+, large stool burden Extremities: No edema, dry and warm. Gluteal wound is bandaged but per review of media, has large open wound with clean borders, multiple centimeters deep and 8cm long, which appears similar to last admission Neuro: A&Ox3, moving all extremities equally, but limited by gluteal wound Last Recorded Vitals BP 91/55 Pulse 75 Temp 37.2 C (99 F) Resp 17 SpO2 96% Medications Scheduled medications acetaminophen, 975 mg, oral, TID bisacodyl, 10 mg, rectal, Once clindamycin, , Topical, BID enoxaparin, 40 mg, subcutaneous, q24h melatonin, 3 mg, oral, Nightly piperacillin-tazobactam, 3.375 g, intravenous, q6h polyethylene glycol, 17 g, oral, BID sennosides-docusate sodium, 2 tablet, oral, BID sodium chloride, 500 mL, intravenous, Once varenicline tartrate, 1 mg, oral, BID Continuous medications PRN medications PRN medications: naloxone, ondansetron, oxyCODONE, vancomycin Labs/Imaging: CBC 11/09/2024: WBC 13, Hb 8.8, Plt 524 CMP 11/09/2024: Gluc 101 Na 137, K 3.7, Cl 107, CO2 24, BUN 19, Cr 1.42, Ca 12.1, AG 6, AST 11, ALT <6, AlkP 70, tBili 0.4, Alb 2.5 A1c 11/08/2024: 5.2 UA 11/08/2024: [place] CT Pelvis 11/08/2024: There is a large open wound along the patient's left buttock measuring approximately 5.5 cm in diameter and 3.6 cm in depth. There is also an adjacent large, enhancing soft tissue masslike opacity arising in the inferior aspect of the left gluteal muscles and extending to the skin surface caudal to the open wound. This masslike opacity measures approximately 9.6 x 8.2 x 14.9 cm (previously 6.3 x 7.1 x 10.4 cm). The overlying skin is abnormally thickened with nodular enhancing masses in the skin surface. There is also skin thickening and subcutaneous fat stranding superior to the ulcerative lesion in the left buttock, and comparatively mild skin thickening along the medial aspect of the right buttock. Micro/culture data: Susceptibility data from last 90 days. Collected Specimen Info Organism Ampicillin/Sulbactam Ceftriaxone Clindamycin Erythromycin Meropenem Oxacillin Penicillin Tetracycline Trimethoprim/Sulfamethoxazole Vancomycin 10/13/24 Swab from ABSCESS Mixed Anaerobic Bacteria Mixed Gram-Positive and Gram-Negative Bacteria 10/11/24 Tissue/Biopsy from Other (specify in comments) Mixed Anaerobic Bacteria Mixed Gram-Positive and Gram-Negative Bacteria 10/10/24 Blood culture from Peripheral Venipuncture Marta powers S S S S S 10/10/24 Blood culture from Peripheral Venipuncture Staphylococcus hominis R R S R S S 09/14/24 Tissue/Biopsy from Skin Lesion Mixed Skin Microorganisms Mixed Anaerobic Bacteria 09/14/24 Tissue/Biopsy from Wound/Tissue Mixed Aerobic and Anaerobic Bacteria 09/13/24 Tissue/Biopsy from Skin/Superficial Abscess Mixed Aerobic and Anaerobic Bacteria Assessment/Plan Kevan La is a 49 y.o. male with refractory hidradenitis supprativa (HS) not responding to povorcitinib (RCT candidate), apremilast, isotretinoin, adalimumab, infliximab, moxifloxacin/metronidazole, minocyclin, clindamycin, rifampin, augmentin and doxycycline, returning to [facility] 11/10/2024 as a transfer from [facility] regarding 14cm gluteal fluid collection. He was recently admitted for the same L. gluteal abscess which was 9.2 x 5.7 x 13.2cm in size s/p I&D. Pending speciation of culture he was discharged with a course of Unasyn per ID however returns due to gluteal pain and questionable sepsis, CT Pelvis at OSH with large ulcerative wound at the left buttock with an adjacent 14.9 cm enhancing mass involving the left gluteal muscles and overlying subcutaneous tissue, larger than CT in 08/2024, which may represent failure of current antibiotic regimen. Will plan to continue broad spectrum antibiotics, consult ACS in AM for consideration of I&D. #Gluteal abscess s/p I&D 10/13 #Refractory hidradenitis suppurativa #Deep tissue SSTI #Questionable Sepsis, Hypotension, favor baseline pressures #Leukocytosis ::Patient with history of refractory HS having failed multiple modalities, now c/b gluteal abscess which he was admitted for 3 weeks ago s/p I&D, BCx with shanthicynthiatatianna oliveirasandie s/p Unasyn complete 10/28/2024 presenting to OSH with initial c/f sepsis found to have worsening gluteal abscess ::CT 11/08/2024: Large ulcerative wound at the left buttock with an adjacent 14.9 cm enhancing mass involving the left gluteal muscles and overlying subcutaneous tissue, larger than CT in 08/2024 ::BP 90/50 on admit here but per review of prior admission, pressures typically land in the mid 90s systolic ::WBC 13.9 on presentation > 13 ::Lactate 11/08: 1.2 Plan: - Follow BCx and Wound Cx from OSH, Admission CBC, CMP, Mag, ESR, CRP, repeat BCx - May consider MRI to better evaluate nature of lesion - Hold home PO iron iso likely active infection - Continue Topical Clindamycin BID - 500cc NS - Continue V/Z (11/08 - xx) - Pain: Tylenol TID, Oxy 5 Q6H prn - Wound Consult - ACS consult in AM for repeat I&D - ID consult pending speciation - Last dose of Povorcitanib 10/10, will need Derm follow-up nonurgently #Hypercalcemia, mild ::Ca 13.5 on admit to OSH > 12.1 ::Patient without any neurologic symptoms - Ordered PTH/Vit D/ionized calcium - Fluids PRN based on daily labs #Nicotine Use - Continue home Chantix #Subacute PARUL ::Cr ~1.6 on last admission, 1.48 on admission to [facility] 11/08 > 1.42, prior Cr in 03/2023 was 1.2 ::On prior admission was evaluated for this with normal UA, CT with no hydronephrosis, felt to be 2/2 NSAID use for HS ::A1c WNL - Avoid nephrotoxic drug, hypotension, sepsis, dehydration - Continuing to encourage oral hydration - Daily RFP #Bladder Calculi ::Incidentally noted on CT Pelvis from OSH, asymptomatic F: 500 given E: PRN N: regular A: PIVs DVT prophylaxis: Lovenox (will hold pending ACS consult) Code status: FULL CODE NOK: Omkar La (brother, ) Noah Peña MD Internal Medicine Cosigned by Claudio Plunkett MD at 11/10/2024 10:57 AM EST Associated attestation - Claudio Plunkett MD - 11/10/2024 10:57 AM EST I saw and evaluated the patient. I personally obtained the gomez and critical portions of the history and physical exam or was physically present for goemz and critical portions performed by the resident/fellow. I reviewed the resident/fellow's documentation and discussed the patient with the resident/fellow. I agree with the resident/fellow's medical decision making as documented in the note with the exception/addition of the following: I discussed 's care with him . Will ask endocrinology to see him about the hypercalcemia . I would consider it more than mild . The bladder stones are a possible complication of this . Consult acs for the fluid collection . Continue with antibiotics. documented in this encounter [facility] Work Phone: 11-09-2024 Note Internal Medicine: M ed Team Discharge Summary Kevan La : 1975 ADMIT DATE: 11/08/2024 DISCHARGE DATE: 11/09/24 PCP: No primary care provider on file. Visit Status: Admission Code Status: FULL CODE Primary Discharge Diagnosis: Chronic Hidradenitis Suppurative Secondary Discharge Diagnoses: Leukocytosis Azotemia - did not meet criteria for an PARUL Bladder Calculli Normocytic anemia Thrombocytosis Reason for Admission & Hospital Course: Kevan La is a 49 y.o. male that presented to [facility] on 11/08/2024 and was admitted for wound check. Patient arrived to [facility] from SNF fro possible sepsis related to chronic hidradenitis affecting mostly his left hip and going down into his left thigh. On presentation to ED patient was hypotensive to 90/60, however this seems to have resolved with repositioning cuff. Patient was treated as sepsis, started on Vanc/Zosyn with blood cultures and wound cultures obtained for septic work-up. CT pelvis with contrast was obtained noting a large ulcerative wound at the left buttock with an adjacent 14.9 cm enhancing mass involving the left gluteal muscles and overlying subcutaneous tissue. Mass noted to be significantly larger than on prior CT 09/10. No evidence of osteomyelitis noted. There is a new bladder calculi be 15 mm. He was admitted for further treatment and management. Labs testing was significant for hypercalcemia at 13.5 (downtrended to 12.1 on subsequent testing), leucocytosis of 13.9, PARUL with slight creatinine bump since admission from 1.39-1.42. TSH, UA, and A1c within normal limits. Patient denies chest pain, shortness of breath, abdominal pain, nausea, vomiting, diarrhea, dysuria. There were no acute events that happened during his stay here. Decision was to transfer patient to [facility] for further care. Of note, patient has been receiving care at including clinical trial medications for his hidradenitis suppurativa. Disposition: Transfer to Acute Care Hospital Activity: As Tolerated Diet: Adult diet Regular Discharge Medications: Medication List START taking these medications acetaminophen 500 MG tablet Commonly known as: Tylenol Take 2 tablets (1,000 mg) by mouth every 8 hours for 10 days. melatonin 3 MG tablet Take 1 tablet (3 mg) by mouth Nightly as needed for sleep. naloxone 0.4 MG/ML injection Commonly known as: Narcan Infuse 1 mL (0.4 mg) into a venous catheter as needed for opioid reversal. ondansetron 4 MG/2ML injection Commonly known as: Zofran Infuse 2 mL (4 mg) into a venous catheter every 6 hours as needed for nausea or vomiting. ondansetron ODT 4 MG disintegrating tablet Commonly known as: Zofran-ODT Take 1 tablet (4 mg) by mouth every 8 hours as needed for nausea or vomiting for up to 7 days. piperacillin-tazobactam 3-0.375 GM/50ML IVPB Commonly known as: Zosyn Infuse 50 mL (3.375 g) into a venous catheter every 8 hours. polyethylene glycol (PEG) 3350 17 g packet Commonly known as: Miralax Take 17 g by mouth daily for 3 days. Start taking on: November 10, 2024 vancomycin 1,000 mg in sodium chloride 0.9 % 250 mL IVPB Infuse 1,000 mg into a venous catheter every 12 hours. Start taking on: November 10, 2024 CONTINUE taking these medications cholecalciferol 200 Unit tablet split tablet Commonly known as: Vitamin D3 ferrous sulfate 325 (65 Fe) MG EC tablet Where to Get Your Medications Information about where to get these medications is not yet available Ask your nurse or doctor about these medications acetaminophen 500 MG tablet melatonin 3 MG tablet naloxone 0.4 MG/ML injection ondansetron 4 MG/2ML injection ondansetron ODT 4 MG disintegrating tablet piperacillin-tazobactam 3-0.375 GM/50ML IVPB polyethylene glycol (PEG) 3350 17 g packet vancomycin 1,000 mg in sodium chloride 0.9 % 250 mL IVPB Notable Medication Changes & Reasoning: None [facility] Procedures Performed None Significant Laboratory/Radiographic Data: CT pelvis w IV contrast 1. Large ulcerative wound in the left buttock with an adjacent 14.9 cm enhancing mass involving the left gluteal muscles and overlying subcutaneous tissues. While this could simply relate to the patient's history of hidradenitis suppurvativa, a malignant mass would have the same appearance, and the mass is significantly larger than on the prior CT from August 2024. Biopsy is suggested. 2. No evidence of osteomyelitis. No acute intracranial abnormalities. 3. Left inguinal and external iliac lymphadenopathy. 4. New bladder calculi, the largest 15 mm. Pending Results at Time of Discharge Blood Cultures Final results - NG24 hrs on prelimary Follow Up Appointment(s): None -Follows with Items to Address at Followup Visit: Not Applicable [facility] 11-09-2024 Hospital course Narrative Internal Medicine: Med Team Discharge Summary Kevan La : 1975 ADMIT DATE: 11/08/2024 DISCHARGE DATE: 11/09/24 PCP: No primary care provider on file. Visit Status: Admission Code Status: FULL CODE Primary Discharge Diagnosis: Chronic Hidradenitis Suppurative Secondary Discharge Diagnoses: Leukocytosis Acute Kidney Injury Bladder Calculli Normocytic anemia Thrombocytosis Reason for Admission & Hospital Course: Kevan La is a 49 y.o. male that presented to [facility] on 11/08/2024 and was admitted for wound check. Patient arrived to [facility] from [facility] fro possible sepsis related to chronic hidradenitis affecting mostly his left hip and going down into his left thigh. On presentation to ED patient was hypotensive to 90/60, however this seems to have resolved with repositioning cuff. Patient was treated as sepsis, started on Vanc/Zosyn with blood cultures and wound cultures obtained for septic work-up. CT pelvis with contrast was obtained noting a large ulcerative wound at the left buttock with an adjacent 14.9 cm enhancing mass involving the left gluteal muscles and overlying subcutaneous tissue. Mass noted to be significantly larger than on prior CT 09/10. No evidence of osteomyelitis noted. There is a new bladder calculi be 15 mm. He was admitted for further treatment and management. Labs testing was significant for hypercalcemia at 13.5 (downtrended to 12.1 on subsequent testing), leucocytosis of 13.9, PARUL with slight creatinine bump since admission from 1.39-1.42. TSH, UA, and A1c within normal limits. Patient denies chest pain, shortness of breath, abdominal pain, nausea, vomiting, diarrhea, dysuria. There were no acute events that happened during his stay here. Decision was to transfer patient to [facility] for further care. Of note, patient has been receiving care at including clinical trial medications for his hidradenitis suppurativa. Disposition: Transfer to Acute Care Hospital Activity: As Tolerated Diet: Adult diet Regular Discharge Medications: Medication List START taking these medications acetaminophen 500 MG tablet Commonly known as: Tylenol Take 2 tablets (1,000 mg) by mouth every 8 hours for 10 days. melatonin 3 MG tablet Take 1 tablet (3 mg) by mouth Nightly as needed for sleep. naloxone 0.4 MG/ML injection Commonly known as: Narcan Infuse 1 mL (0.4 mg) into a venous catheter as needed for opioid reversal. ondansetron 4 MG/2ML injection Commonly known as: Zofran Infuse 2 mL (4 mg) into a venous catheter every 6 hours as needed for nausea or vomiting. ondansetron ODT 4 MG disintegrating tablet Commonly known as: Zofran-ODT Take 1 tablet (4 mg) by mouth every 8 hours as needed for nausea or vomiting for up to 7 days. piperacillin-tazobactam 3-0.375 GM/50ML IVPB Commonly known as: Zosyn Infuse 50 mL (3.375 g) into a venous catheter every 8 hours. polyethylene glycol (PEG) 3350 17 g packet Commonly known as: Miralax Take 17 g by mouth daily for 3 days. Start taking on: November 10, 2024 vancomycin 1,000 mg in sodium chloride 0.9 % 250 mL IVPB Infuse 1,000 mg into a venous catheter every 12 hours. Start taking on: November 10, 2024 CONTINUE taking these medications cholecalciferol 200 Unit tablet split tablet Commonly known as: Vitamin D3 ferrous sulfate 325 (65 Fe) MG EC tablet Where to Get Your Medications Information about where to get these medications is not yet available Ask your nurse or doctor about these medications acetaminophen 500 MG tablet melatonin 3 MG tablet naloxone 0.4 MG/ML injection ondansetron 4 MG/2ML injection ondansetron ODT 4 MG disintegrating tablet piperacillin-tazobactam 3-0.375 GM/50ML IVPB polyethylene glycol (PEG) 3350 17 g packet vancomycin 1,000 mg in sodium chloride 0.9 % 250 mL IVPB Notable Medication Changes & Reasoning: None [facility] Procedures Performed None Significant Laboratory/Radiographic Data: CT pelvis w IV contrast 1. Large ulcerative wound in the left buttock with an adjacent 14.9 cm enhancing mass involving the left gluteal muscles and overlying subcutaneous tissues. While this could simply relate to the patient's history of hidradenitis suppurvativa, a malignant mass would have the same appearance, and the mass is significantly larger than on the prior CT from August 2024. Biopsy is suggested. 2. No evidence of osteomyelitis. No acute intracranial abnormalities. 3. Left inguinal and external iliac lymphadenopathy. 4. New bladder calculi, the largest 15 mm. Pending Results at Time of Discharge Blood Cultures Final results - NG24 hrs on prelimary Follow Up Appointment(s): None -Follows with Items to Address at Followup Visit: Not Applicable Cosigned by Paulino Larios MD at 11/09/2024 9:40 PM EST documented in this encounter [facility] 11-09-2024 Nurse Note transfer center called, stated still no bed are available but checking on if any changes in pt condition. Updated vitals given and isolation status confirmed. Enrique at the transfer center given unit phone number and he stated they will reach out when bed available. [facility] 11-09-2024 Nurse Note transfer center called, stated still no bed are available but checking on if any changes in pt condition. Updated vitals given and isolation status confirmed. Enrique at the transfer center given unit phone number and he stated they will reach out when bed available. documented in this encounter [facility] 11-09-2024 Plan of care note Problem: Knowledge Deficit Goal: Patient/family/caregiver demonstrates understanding of disease process, treatment plan, medications, and discharge instructions Outcome: Progressing Problem: Potential for Compromised Skin Integrity Goal: Skin Integrity is Maintained or Improved Outcome: Progressing Goal: Nutritional status is improving Outcome: Progressing Problem: Urinary Incontinence Goal: Perineal skin integrity is maintained or improved Outcome: Progressing Problem: Potential for Falls Goal: I will remain free of falls Outcome: Progressing Problem: Discharge Barriers Goal: My discharge needs are met Outcome: Progressing [facility] 11-09-2024 Miscellaneous Notes Problem: Knowledge Deficit Goal: Patient/family/caregiver demonstrates understanding of disease process, treatment plan, medications, and discharge instructions Outcome: Progressing Problem: Potential for Compromised Skin Integrity Goal: Skin Integrity is Maintained or Improved Outcome: Progressing Goal: Nutritional status is improving Outcome: Progressing Problem: Urinary Incontinence Goal: Perineal skin integrity is maintained or improved Outcome: Progressing Problem: Potential for Falls Goal: I will remain free of falls Outcome: Progressing Problem: Discharge Barriers Goal: My discharge needs are met Outcome: Progressing documented in this encounter [facility] 11-09-2024 History of Present illness Narrative Patient is accepted for transfer to pending bed availability. Will continue to monitor on antibiotics. Will hold off on US or biopsy of enhancing lesion at this time, although in the setting of recent infection the etiology is most likely infectious. Surgical team has signed off. Pharmacy to Dose Vancomycin - Progress Note Lab Results Component Value Date CREATININE 1.42 (H) 11/09/2024 BUN 19 11/09/2024 WBC 13.0 (H) 11/09/2024 Doses, serum creatinine, and vancomycin levels interfaced automatically to Backtrace I/O and data has been analyzed and interpreted. Infectious Diagnosis: SSTI Est CrCl: 75.2 mL/min (Cockcroft-Gault) Assessment: Current regimen vancomycin 1000 mg every 12 hours (11.5 mg/kg) Predicted AUC = 557 mg/L*hr (goal 400-600 mg/L*hr) PAUC = 91% (probability that AUC is >400 mg/L*hr) Pconc = 30% (probability that Ctrough is above 20 mcg/mL (toxicity)) Plan: Is the current dose therapeutic? [x] Yes - obtain next level on 11/10 AM unless predicted AUC is sub-/supra-therapeutic or change in serum creatinine. Trend serum creatinine. Trend AUC using Bayesian Modeling. Orders placed. DATE: 11/09/24 TIME: 8:58 AM Kristy Ferguson RPh Clinical Pharmacist Available via Secure Chat Med Team Progress Note Kevan La : 1975(49 y.o.) Date: November 09, 2024 Med Team: Isidro Attending: Dyllan Chief Complaint: Wound check Subjective: - No acute events overnight. - Currently, patient is resting in bed in no acute distress, vital stable. Patient notes that pain is present however at baseline. Patient with PARUL slight creatinine bump since admission from 1.39-1.42. On admission patient with hypercalcemia at 13.5 now downtrending to 12.1. White count on admission of 13.9 now 13. Hemoglobin dropped from 10.4 on admission to 8.8. Platelets downtrending as well from 634 on admission to 524. TSH, UA, and A1c within normal limits. Patient denies chest pain, shortness of breath, abdominal pain, nausea, vomiting, diarrhea, dysuria. Per chart review patient will be transferred to [facility] for further care, currently waiting for bed assignment. Patient has been receiving care at including clinical trial medications for his hidradenitis suppurativa. PRN meds used in last 24hrs: Oxycodone 5mg x1 Review of Systems Please review pertinent positives and negatives per HPI Scheduled Meds:acetaminophen, 1,000 mg, Oral, 3 times per day enoxaparin, 40 mg, SubCUTAneous, Daily piperacillin-tazobactam, 3,375 mg, IntraVENous, q8h polyethylene glycol (PEG) 3350, 17 g, Oral, Daily vancomycin, 1,000 mg, IntraVENous, q12h Continuous Infusions: Objective: BP 91/54 (BP Location: Left arm, Patient Position: Lying) Pulse 69 Temp 37.1 C (98.8 F) (Oral) Resp 18 Wt 230 lb (104 kg) SpO2 96% BMI 25.91 kg/m Physical Exam Constitutional: General: He is not in acute distress. Appearance: He is not ill-appearing, toxic-appearing or diaphoretic. HENT: Head: Normocephalic. Cardiovascular: Rate and Rhythm: Normal rate and regular rhythm. Pulmonary: Effort: Pulmonary effort is normal. Breath sounds: Normal breath sounds. Skin: Findings: Lesion present. Comments: Please refer to images taken in chart for further description. Main, more severe lesion noted on the left hip/left posterior thigh. There is a smaller, minor lesion noted of the right hip. Neurological: Mental Status: He is alert and oriented to person, place, and time. Psychiatric: Mood and Affect: Mood normal. Select Recent Labs BMP: Recent Labs 11/08/24 1531 11/09/24 0607 NA 137 137 K 4.2 3.7 CL 103 107 CO2 24 24 BUN 21 19 CREATININE 1.39* 1.42* CALCIUM 13.5* 12.1* LFTs: Recent Labs 11/08/24 1531 11/08/24 1541 11/09/24 0607 AST 14 -- 11 ALT 7 -- <6 PROT 7.7 -- 6.3* ALBUMIN 3.0* -- 2.5* BILITOT 0.5 -- 0.4 BILIRUBINU -- Negative -- ALKPHOS 84 -- 70 Glucose: Recent Labs 11/08/24 1531 11/09/24 0607 GLUCOSE 104* 101* Procal: No results for input(s): "PROCAL" in the last 72 hours. CBC: Recent Labs 11/08/24 1531 11/09/24 0607 WBC 13.9* 13.0* HGB 10.4* 8.8* HCT 31.1* 27.7* PLT 634* 524* MCV 84.5 87.1 RDW 16.5* 16.4* ABGs: No results for input(s): "PHART", "IRQ3LAT", "PO2ART", "ZWA3SDD", "SO2ART", "X7ZZNWEM" in the last 72 hours. Lactic Acid: Recent Labs 11/08/24 1531 LACTATE 1.2 INR: No results for input(s): "INR" in the last 72 hours. Cardiac Injury Profile: No results for input(s): "CKTOTAL", "CKMB", "TROPONINI", "TROPHSBASE", "TROPHS2", "BNP" in the last 72 hours. Labs in Last 3 months: Lab Results Component Value Date TSH 0.84 11/08/2024 Assessment and Plan: #Chronic hidradenitis suppurativa #Leukocytosis -Acute flare of hidradenitis suppurativa -Wound with increased drainage and erythema -Leukocytosis downtrending 13.9 (11/08) now 13.0 (11/09) -CT pelvis (11/08) showed large ulcerative wound of left buttock with adjacent 14.9 cm enhancing mass involving the left gluteal muscles and overlying subcutaneous tissue, mass significantly larger than prior CT on 09/10, cannot rule out malignancy Plan: -Patient to be transferred to for further care, awaiting bed placement at this time -Continue vanc/Zosyn -Blood cultures pending -Wound cultures ordered, yet to be collected -Tylenol 1000 mg scheduled TID -Oxycodone 2.5-5 mg every 4 hours as needed for moderate and severe pain respectively -Surgery consulted for possible I&D, n.p.o. in anticipation of possible procedure -Daily BMP, CBC -PT/OT #PARUL -Cr of 1.39 (11/08) now 1.42 (11/09) - baseline of 1.20 Plan: -Daily BMP -Will continue to monitor #Bladder colliculi #Hypercalcemia -Calcium of 13.5 (11/08) now down trended to 12.1 (11/09) -Bladder colliculi noted at 15 mm -Patient continues to deny dysuria, hematuria, discharge, retention, straining Plan: -Daily BMP -Consider further hypercalcemia workup -Will continue to monitor #Normocytic anemia #Thrombocytosis -Anemia noted at 10.4 on admission (11/08) now down trended to 8.8 (11/09) - recent hemoglobin 08/2024 of 8.9 -Platelet count of 634 on admission (11/08) now down trended to 524 (11/09) Plan: -Daily CBC -Transfuse if hemoglobin less than 7 Resolved Problems: N/A Chronic Problems and Follow Up Items: N/A Dispo and Barriers to Discharge: patient will be transferred to [facility] for further care, currently waiting for bed assignment. Patient has been receiving care at including clinical trial medications for his hidradenitis suppurativa. - Goals of Care: FULL CODE - DVT Prophylaxis: Lovenox 40 q24hr - CrCl >30 - GI Prophylaxis: Protonix daily - Diet: NPO Cosigned by Paulino Larios MD at 11/09/2024 1:50 PM EST documented in this encounter [email or web address] 11-09-2024 Note Pharmacy to Dose Van comycin - Progress Note Lab Results Component Value Date CREATININE 1.42 (H) 11/09/2024 BUN 19 11/09/2024 WBC 13.0 (H) 11/09/2024 Doses, serum creatinine, and vancomycin levels interfaced automatically to Backtrace I/O and data has been analyzed and interpreted. Infectious Diagnosis: SSTI Est CrCl: 75.2 mL/min (Cockcroft-Gault) Assessment: Current regimen vancomycin 1000 mg every 12 hours (11.5 mg/kg) Predicted AUC = 557 mg/L*hr (goal 400-600 mg/L*hr) PAUC = 91% (probability that AUC is >400 mg/L*hr) Pconc = 30% (probability that Ctrough is above 20 mcg/mL (toxicity)) Plan: Is the current dose therapeutic? [x] Yes - obtain next level on 11/10 AM unless predicted AUC is sub-/supra-therapeutic or change in serum creatinine. Trend serum creatinine. Trend AUC using Bayesian Modeling. Orders placed. DATE: 11/09/24 TIME: 8:58 AM Kristy Ferguson [facility] Clinical Pharmacist Available via Secure [employer] [facility] 11-09-2024 Note Med Team Progress No delfino La : 1975(49 y.o.) Date: November 09, 2024 Med Team: Isidro Attending: Dyllan Chief Complaint: Wound check Subjective: - No acute events overnight. - Currently, patient is resting in bed in no acute distress, vital stable. Patient notes that pain is present however at baseline. Patient with PARUL slight creatinine bump since admission from 1.39-1.42. On admission patient with hypercalcemia at 13.5 now downtrending to 12.1. White count on admission of 13.9 now 13. Hemoglobin dropped from 10.4 on admission to 8.8. Platelets downtrending as well from 634 on admission to 524. TSH, UA, and A1c within normal limits. Patient denies chest pain, shortness of breath, abdominal pain, nausea, vomiting, diarrhea, dysuria. Per chart review patient will be transferred to [facility] for further care, currently waiting for bed assignment. Patient has been receiving care at including clinical trial medications for his hidradenitis suppurativa. PRN meds used in last 24hrs: Oxycodone 5mg x1 Review of Systems Please review pertinent positives and negatives per HPI Scheduled Meds:acetaminophen, 1,000 mg, Oral, 3 times per day enoxaparin, 40 mg, SubCUTAneous, Daily piperacillin-tazobactam, 3,375 mg, IntraVENous, q8h polyethylene glycol (PEG) 3350, 17 g, Oral, Daily vancomycin, 1,000 mg, IntraVENous, q12h Continuous Infusions: Objective: BP 91/54 (BP Location: Left arm, Patient Position: Lying) Pulse 69 Temp 37.1 ?C (98.8 ?F) (Oral) Resp 18 Wt 230 lb (104 kg) SpO2 96% BMI 25.91 kg/m? Physical Exam Constitutional: General: He is not in acute distress. Appearance: He is not ill-appearing, toxic-appearing or diaphoretic. HENT: Head: Normocephalic. Cardiovascular: Rate and Rhythm: Normal rate and regular rhythm. Pulmonary: Effort: Pulmonary effort is normal. Breath sounds: Normal breath sounds. Skin: Findings: Lesion present. Comments: Please refer to images taken in chart for further description. Main, more severe lesion noted on the left hip/left posterior thigh. There is a smaller, minor lesion noted of the right hip. Neurological: Mental Status: He is alert and oriented to person, place, and time. Psychiatric: Mood and Affect: Mood normal. Select Recent Labs BMP: Recent Labs 11/08/24 1531 11/09/24 0607 NA 137 137 K 4.2 3.7 CL 103 107 CO2 24 24 BUN 21 19 CREATININE 1.39* 1.42* CALCIUM 13.5* 12.1* LFTs: Recent Labs 11/08/24 1531 11/08/24 1541 11/09/24 0607 AST 14 -- 11 ALT 7 -- <6 PROT 7.7 -- 6.3* ALBUMIN 3.0* -- 2.5* BILITOT 0.5 -- 0.4 BILIRUBINU -- Negative -- ALKPHOS 84 -- 70 Glucose: Recent Labs 11/08/24 1531 11/09/24 0607 GLUCOSE 104* 101* Procal: No results for input(s): "PROCAL" in the last 72 hours. CBC: Recent Labs 11/08/24 1531 11/09/24 0607 WBC 13.9* 13.0* HGB 10.4* 8.8* HCT 31.1* 27.7* PLT 634* 524* MCV 84.5 87.1 RDW 16.5* 16.4* ABGs: No results for input(s): "PHART", "DHW5ZXV", "PO2ART", "OEC3SNV", "SO2ART", "N3AIHYQF" in the last 72 hours. Lactic Acid: Recent Labs 11/08/24 1531 LACTATE 1.2 INR: No results for input(s): "INR" in the last 72 hours. Cardiac Injury Profile: No results for input(s): "CKTOTAL", "CKMB", "TROPONINI", "TROPHSBASE", "TROPHS2", "BNP" in the last 72 hours. Labs in Last 3 months: Lab Results Component Value Date TSH 0.84 11/08/2024 Assessment and Plan: #Chronic hidradenitis suppurativa #Leukocytosis -Acute flare of hidradenitis suppurativa -Wound with increased drainage and erythema -Leukocytosis downtrending 13.9 (11/08) now 13.0 (11/09) -CT pelvis (11/08) showed large ulcerative wound of left buttock with adjacent 14.9 cm enhancing mass involving the left gluteal muscles and overlying subcutaneous tissue, mass significantly larger than prior CT on 09/10, cannot rule out malignancy Plan: -Patient to be transferred to for further care, awaiting bed placement at this time -Continue vanc/Zosyn -Blood cultures pending -Wound cultures ordered, yet to be collected -Tylenol 1000 mg scheduled TID -Oxycodone 2.5-5 mg every 4 hours as needed for moderate and severe pain respectively -Surgery consulted for possible I&D, n.p.o. in anticipation of possible procedure -Daily BMP, CBC -PT/OT #PARUL -Cr of 1.39 (11/08) now 1.42 (11/09) - baseline of 1.20 Plan: -Daily BMP -Will continue to monitor #Bladder colliculi #Hypercalcemia -Calcium of 13.5 (11/08) now down trended to 12.1 (11/09) -Bladder colliculi noted at 15 mm -Patient continues to deny dysuria, hematuria, discharge, retention, straining Plan: -Daily BMP -Consider further hypercalcemia workup -Will continue to monitor #Normocytic anemia #Thrombocytosis -Anemia noted at 10.4 on admission (11/08) now down trended to 8.8 (11/09) - recent hemoglobin 08/2024 of 8.9 -Platelet count of 634 (more content not included)... [facility] 11-09-2024 Emergency department Note This RN spoke to Enrique at [facility] for patient update. He stated that they are currently waiting for a bed assignment for the patient at [facility]. [facility] 11-09-2024 Emergency department Note This RN spoke to Enrique at [facility] for patient update. He stated that they are currently waiting for a bed assignment for the patient at [facility]. Provider messaged about BP and MAP Provider messaged about orders Patient requested pain medication and dinner. This nurse messaged provider Patient is aware of patients BP and MAP. Liter of NS hung for systolic of 88. IV obtained with blood work and first set of cultures. Will notify doctor of BP. EMERGENCY DEPARTMENT ENCOUNTER Pt Name: Kevan La Birthdate 1975 Date of evaluation: 11/08/2024 ED Provider: Juvenal Fierro MD CHIEF COMPLAINT Chief Complaint Patient presents with Wound Check Pt arrives from SNF for possible sepsis. Had wound on buttock drained at in Sep. Has not had IV antibiotics at facility. Hx of rare skin condition with frequent abscesses. Aox4. Some N/V. Hypotensive 80-90 systolic. HISTORY OF PRESENT ILLNESS (Location/Symptom, Timing/Onset, Context/Setting, Quality, Duration, Modifying Factors, Severity) Note limiting factors. I wore appropriate PPE for the entirety of this encounter. HPI Kevan La is a 49 y.o. adult who presents to the emergency department with chief complaint of possible sepsis. Patient has chronic hidradenitis affecting mostly his left hip and going down into his left thigh as well. Patient has routine flareups requiring antibiotics, and he had an incision and drainage done in September at . Patient is currently at a SNF, and he did not receive any IV antibiotics while he was there. Today nurses at the SNF noticed that his wounds were draining more than usual and are more erythematous than usual, and that his blood pressure was a little softer than usual. This constellation of symptoms breathing concern for sepsis with a symptom here to the ED. On presentation to the ED patient is hypotensive to the 90/60, says his blood pressure is usually well over 100 systolic. Hidradenitis sites are draining with dressing on them, dressing is clean for the most part with some drainage patient says it was replaced this morning. Patient feels all right aside from a moderate amount of pain from his hidradenitis which she says is more or less his baseline. Nursing Notes were reviewed. Limitations to history: None Outside historians: None REVIEW OF SYSTEMS Review of Systems Pertinent positives and negatives as per HPI. PAST MEDICAL HISTORY No past medical history on file. SURGICAL HISTORY No past surgical history on file. CURRENT MEDICATIONS Previous Medications No medications on file ALLERGIES Patient has no known allergies. FAMILY HISTORY No family history on file. SOCIAL HISTORY Social History Socioeconomic History Marital status: Single Social Drivers of Health Financial Resource Strain: Medium Risk (10/12/2024) Received from [facility] Overall Financial Resource Strain (CARDIA) Difficulty of Paying Living Expenses: Somewhat hard Food Insecurity: Food Insecurity Present (10/11/2024) Received from [facility] Hunger Vital Sign Worried About Running Out of Food in the Last Year: Sometimes true Ran Out of Food in the Last Year: Sometimes true Transportation Needs: No Transportation Needs (10/12/2024) Received from [facility] PRAPARE - Transportation Lack of Transportation (Medical): No Lack of Transportation (Non-Medical): No Intimate Partner Violence: Not At Risk (10/11/2024) Received from [facility] Humiliation, Afraid, Rape, and Kick questionnaire Fear of Current or Ex-Partner: No Emotionally Abused: No Physically Abused: No Sexually Abused: No Housing Stability: Low Risk (10/12/2024) Received from [facility] Housing Stability Vital Sign Unable to Pay for Housing in the Last Year: No Number of Times Moved in the Last Year: 1 Homeless in the Last Year: No Recent Concern: Housing Stability - High Risk (09/17/2024) Received from [facility] Housing Stability Vital Sign Unable to Pay for Housing in the Last Year: Yes Number of Times Moved in the Last Year: 0 Homeless in the Last Year: No SCREENINGS PHYSICAL EXAM ED Triage Vitals [11/08/24 1508] Temp Heart Rate Resp BP 37.1 C (98.8 F) 82 15 94/61 SpO2 Temp Source Heart Rate Source Patient Position 96 % Oral Monitor -- BP Location FiO2 (%) -- -- Physical Exam Vitals reviewed. Constitutional: General: He is not in acute distress. Appearance: Normal appearance. He is not ill-appearing, toxic-appearing or diaphoretic. HENT: Head: Normocephalic and atraumatic. Eyes: General: No scleral icterus. Right eye: No discharge. Left eye: No discharge. Cardiovascular: Rate and Rhythm: Normal rate and regular rhythm. Pulmonary: Effort: Pulmonary effort is normal. Breath sounds: Normal breath sounds. Skin: General: Skin is warm and dry. Findings: Lesion present. Comments: Diffuse hidradenitis on left glute and left thigh. Dressing has some purulent drainage on it, but is for the most part clean and dry. Neurological: Mental Status: He is alert and oriented to person, place, and time. Psychiatric: Mood and Affect: Mood normal. Behavior: Behavior normal. Thought Content: Thought content normal. DIAGNOSTIC RESULTS RADIOLOGY (Per Emergency Physician): Interpretation per the Radiologist below, if available at the time of this note: No orders to display ED BEDSIDE ULTRASOUND: Performed by ED Physician - none LABS: Labs Reviewed BLOOD CULTURE BLOOD CULTURE AEROBIC AND ANAEROBIC CULTURE WITH STAIN Narrative: The following orders were created for panel order Aerobic and Anaerobic Culture with Stain. Procedure Abnormality Status --------- ------ Culture, Aerobic Bacteri...[[id number]] Anaerobic culture[[id number]] Please view results for these tests on the individual orders. CULTURE, AEROBIC BACTERIA WITH GRAM STAIN CULTURE ANAEROBIC CBC WITH AUTO DIFFERENTIAL COMPREHENSIVE METABOLIC PANEL LACTIC ACID WITH REFLEX COMPLETE URINALYSIS WITH REFLEX TO CULTURE Narrative: The following orders were created for panel order Urinalysis Complete with reflex to Culture. Procedure Abnormality Status --------- ------ Complete Urinalysis[[id number]] Please view results for these tests on the individual orders. COMPLETE URINALYSIS All other labs were within normal range or not returned as of this dictation. EMERGENCY DEPARTMENT COURSE and DIFFERENTIAL DIAGNOSIS/MDM: Vitals: Vitals: 11/08/24 1508 BP: 94/61 Pulse: 82 Resp: 15 Temp: 37.1 C (98.8 F) TempSrc: Oral SpO2: 96% MDM elements: The patient presented with chief complaint of possible sepsis. The differential diagnosis associated with this patient's presentation includes worsening hidradenitis, cellulitis, sepsis. Our workup consisted of ordering/reviewing: CBC CMP lactic acid blood cultures wound cultures urinalysis. Patient is in agreement with this plan. Patient arrived to the ED hypotensive to 90/60. Patient says she is usually over 100 systolic. His hidradenitis area had intact dressing over it with some drainage. There was erythema and warmth over his hidradenitis sites. Patient was given Tylenol and fentanyl for pain. He was also given a 1 L bolus of normal saline, and started on broad-spectrum Vanco and Zosyn. CBC showed markedly elevated white count. Cultures pending. Patient signed out to Dr. Ruiz at 4:56 PM. This note is up to date up to the time of sign out. The physician carrying out continued care will update any assessments or plans as as the need develops. They will continue the ongoing visit, including all aspects of the Medical Decision Making. Medications fentaNYL (Sublimaze) injection 50 mcg (has no administration in time range) ondansetron (Zofran) injection 4 mg (has no administration in time range) acetaminophen (Tylenol) tablet 1,000 mg (has no administration in time range) sodium chloride 0.9 % bolus 1,000 mL (has no administration in time range) REVAL: CONSULTS: None PROCEDURES: Unless otherwise noted below, none Procedures FINAL IMPRESSION No diagnosis found. DISPOSITION PATIENT REFERRED TO: No follow-up provider specified. DISCHARGE MEDICATIONS: New Prescriptions No medications on file (Comment: Please note this report has been produced using speech recognition software and may contain errors related to that system including errors in grammar, punctuation, and spelling, as well as words and phrases that may be inappropriate. If there are any questions or concerns please feel free to contact the dictating provider for clarification.) Juvenal Fierro MD (electronically signed) Emergency Medicine Provider Juvenal Fierro MD Resident 11/08/24 0295 Cosigned by Fer Kennedy MD at 11/08/2024 6:55 PM EST Emergency Department Encounter [facility] EMERGENCY DEPT Patient: Kevan La : 1975 Date of Evaluation: 11/08/2024 ED Supervising Physician: Fer Kennedy MD I personally evaluated Kevan La and made/approved the management plan and take responsibility for the patient management. This will serve as my Supervisory note and shared attestation. I did perform a substantive portion of the visit including all aspects of the Medical Decision Making. I wore appropriate PPE for the entirety of this encounter. In brief, Kevan La is a 49 y.o. that presents to the emergency department for low blood pressure and wound check. Patient coming from [facility] for possible sepsis. Patient has chronic refractory hidradenitis suppurativa requiring multiple admissions most recently at with IV antibiotics. Currently on doxycycline. Had some nausea reported vomiting denies fevers chills. Focused exam: Vitals blood pressure now improved he is afebrile nontoxic no distress Left gluteal area with multiple chronic appearing wounds healing nonhealing and there is purulence coming from a masslike area, there is mild cellulitis of this area, there is a chronic nonhealing wound that is packed, no crepitus, there is tenderness, no streaking Brief ED course/MDM: 49-year-old male presents for worsening hidradenitis and low blood pressure. Differential abscess, cellulitis, necrotizing fasciitis. Plan is for labs, cultures, CT, IV fluids and antibiotics, surgery consult. Anticipate transfer to as he apparently is on a clinical trial there and was transferred there last time. Does not meet SIRS criteria. Diagnostics interpreted by me: CT scan(s) CT pelvis shows what appears to be a fluid collection in the left gluteal area I personally discussed the patient's management with other clinicians: none All diagnostic, treatment, and disposition decisions were made by myself in conjunction with the Resident. I also supervised gomez portions of any procedures performed by the Resident. For all further details of the patient's emergency department visit, please see their documentation. (Comment: Please note this report has been produced using speech recognition software and may contain errors related to that system including errors in grammar, punctuation, and spelling, as well as words and phrases that may be inappropriate. If there are any questions or concerns please feel free to contact the dictating provider for clarification.) Fer Kennedy MD [employer] Fer Kennedy MD 11/08/24 1651 documented in this encounter [facility] 11-08-2024 Consult note Formatting of th is note is different from the original. Images from the original note were not included. Pharmacy Managed Vancomycin Dosing Service Consult Note Consult Date: 11/08/24 Patient Name: Kevan La Allergies: Patient has no known allergies. Age: 49 y.o. Sex: male Estimated body mass index is 25.91 kg/m as calculated from the following: Height as of 09/13/24: 2.007 m (6' 7"). Weight as of this encounter: 104 kg (230 lb). DW: 104 kg Lab Results Component Value Date CREATININE 1.39 (H) 11/08/2024 CREATININE 1.48 (H) 09/12/2024 BUN 21 11/08/2024 BUN 18 09/12/2024 WBC 13.9 (H) 11/08/2024 WBC 17.8 (H) 09/12/2024 Calculated CrCl: 92 mL/min (Cockcroft-Gault) Consulted By: Kaushik Cervantes Infectious Diagnosis: SSTI (AUC Goal 400-600 mg/L*hr) Random Vancomycin Level Due: 11/10 Antimicrobials: Patient recently received an antibiotic (last 12 hours) Date/Time Action Medication Dose Rate 11/08/24 2105 New Bag piperacillin-tazobactam (Zosyn) IVPB 3,375 mg 3,375 mg 12.5 mL/hr 11/08/24 1701 New Bag vancomycin in NS (Vancocin) IVPB 2,000 mg 2,000 mg 250 mL/hr 11/08/24 1615 New Bag piperacillin-tazobactam (Zosyn) IVPB 4,500 mg 4,500 mg 200 mL/hr Assessment/Plan: Doses, serum creatinine, and vancomycin levels interfaced automatically to Backtrace I/O and data has been analyzed and interpreted. Start Vancomycin 1000 mg every 12 hours based on patient age, weight, renal function, and infectious diagnosis (9.6 mg/kg). Predicted AUC = 476 mg/L*hr (goal 400-600 mg/L*hr) PAUC = 71% (probability that AUC is >400 mg/L*hr) Pconc = 16% (probability that Ctrough is above 20 mcg/mL (toxicity)) Will assess random level on 11/10/24 and adjust as appropriate. Trend serum creatinine. Orders placed. Thank you for this consult. Please secure text or call with questions. DATE: 11/08/24 TIME: 11:24 PM Sara Ziegler, PharmD Clinical Pharmacist Available via Secure Chat [facility] 11-08-2024 Consult note Formatting of th is note is different from the original. Images from the original note were not included. Pharmacy Managed Vancomycin Dosing Service Consult Note Consult Date: 11/08/24 Patient Name: Kevan La Allergies: Patient has no known allergies. Age: 49 y.o. Sex: male Estimated body mass index is 25.91 kg/m as calculated from the following: Height as of 09/13/24: 2.007 m (6' 7"). Weight as of this encounter: 104 kg (230 lb). DW: 104 kg Lab Results Component Value Date CREATININE 1.39 (H) 11/08/2024 CREATININE 1.48 (H) 09/12/2024 BUN 21 11/08/2024 BUN 18 09/12/2024 WBC 13.9 (H) 11/08/2024 WBC 17.8 (H) 09/12/2024 Calculated CrCl: 92 mL/min (Cockcroft-Gault) Consulted By: Kaushik Cervantes Infectious Diagnosis: SSTI (AUC Goal 400-600 mg/L*hr) Random Vancomycin Level Due: 11/10 Antimicrobials: Patient recently received an antibiotic (last 12 hours) Date/Time Action Medication Dose Rate 11/08/24 2105 New Bag piperacillin-tazobactam (Zosyn) IVPB 3,375 mg 3,375 mg 12.5 mL/hr 11/08/24 1701 New Bag vancomycin in NS (Vancocin) IVPB 2,000 mg 2,000 mg 250 mL/hr 11/08/24 1615 New Bag piperacillin-tazobactam (Zosyn) IVPB 4,500 mg 4,500 mg 200 mL/hr Assessment/Plan: Doses, serum creatinine, and vancomycin levels interfaced automatically to Backtrace I/O and data has been analyzed and interpreted. Start Vancomycin 1000 mg every 12 hours based on patient age, weight, renal function, and infectious diagnosis (9.6 mg/kg). Predicted AUC = 476 mg/L*hr (goal 400-600 mg/L*hr) PAUC = 71% (probability that AUC is >400 mg/L*hr) Pconc = 16% (probability that Ctrough is above 20 mcg/mL (toxicity)) Will assess random level on 11/10/24 and adjust as appropriate. Trend serum creatinine. Orders placed. Thank you for this consult. Please secure text or call with questions. DATE: 11/08/24 TIME: 11:24 PM Sara Ziegler PharmD Clinical Pharmacist Available via Secure Chat documented in this encounter [facility] 11-08-2024 Emergency department Note Provider messaged about BP and MAP [facility] 11-08-2024 Emergency department Note Provider messaged about orders [facility] 11-08-2024 History and physical note Internal Medicine: Med Team Initial History and Physical Kevan La : 1975(49 y.o.) Date: November 08, 2024 TEAM: B Attending: Dr. Larios Subjective: Chief Complaint: Wound Check HPI Kevan La is a 49 y.o. male with PMH chronic hidradenitis suppurativa that presented to [facility] on 11/08/2024 from [facility]. Patient was seen at for severe at bedtime and associated deep-seated tissue infection on 10/10/2024. He had associated fatigue, worsening leukocytosis, and pain. He was started on Vanco Zosyn on 10/10. CT abdomen pelvis showed worsening infection and tissue plane crossing compared to prior CT done in August 2024. Patient was taken for I&D of his left thigh on 10/13/2024. Tissue culture was taken and demonstrated rare mixed anaerobic bacteria, rare mixed gram-positive and gram-negative bacteria. Patient's blood culture taken on 10/10 resulted with Staph hominis slackia exmohindera on 10/16. Patient received PICC line on 10/21 and was continued on IV Unasyn on discharge. Patient noted that he continued IV antibiotics for approximately 1 week. PICC line now removed. He has since been taking doxycycline twice daily until arrival to ED today 09/07. Patient follows with dermatology. On admission patient was being trialed on at bedtime-301 trial medication for at bedtime. Per Derm recommendation trial medication was stopped. Patient is a stress is not responsive to povorcitinib (RCT candidate), apremilast, isotretinoin, adalimumab, infliximab, moxifloxacin/metronidazole, minocyclin, clindamycin, rifampin, augmentin and doxycycline. Patient to follow-up with dermatology 11/12/2024. Patient arrived to [facility] ED from [facility] for possible sepsis related to chronic hidradenitis affecting mostly his left hip and going down into his left thigh. At [facility] nurse noted that his wounds were draining more than usual and are more erythematous. On presentation to ED patient was hypotensive to 90/60, however this seems to have resolved with repositioning cuff. Patient started on Vanc/Zosyn, blood cultures obtained, wound cultures to be obtained. Patient given 1 L bolus normal saline. CBC showed elevated white count at 13.9. Anemia noted at 10.4, appears chronic. Calcium noted at 13.5. Lactic within normal limits. CT pelvis with contrast was obtained noting a large ulcerative wound at the left buttock with an adjacent 14.9 cm enhancing mass involving the left gluteal muscles and overlying subcutaneous tissue. Mass noted to be significantly larger than on prior CT 09/10. No evidence of osteomyelitis noted. There is a new bladder colliculi be 15 mm. On evaluation patient is resting in bed, appears to be in mild discomfort. Patient notes that he is in pain however pain is more so at baseline. Patient unable to comment if site is worse than usual, notes he is unable to see drainage when dressings are changed. Patient notes no urinary symptoms including hematuriadysuria, dysuria, discharge, or retention. Patient otherwise notes no chest pain, shortness of breath, nausea, vomiting, diarrhea. Review of Systems Please review pertinent positives and negatives in HPI. No past medical history on file. No past surgical history on file. No family history on file. Social History Tobacco Use Smoking Status Not on file Smokeless Tobacco Not on file Social History Substance and Sexual Activity Alcohol Use Not on file Social History Substance and Sexual Activity Drug Use Not on file No Known Allergies Prior to Admission medications Not on File Objective: Vitals: 11/08/24 1830 11/08/24 1845 11/08/24 1846 11/08/24 1900 BP: 76/52 92/65 92/65 92/65 Pulse: 75 75 73 75 Resp: 19 16 15 Temp: TempSrc: SpO2: 95% 99% 100% 99% Weight: Physical Exam Constitutional: General: He is not in acute distress. Appearance: He is not ill-appearing, toxic-appearing or diaphoretic. HENT: Head: Normocephalic. Cardiovascular: Rate and Rhythm: Normal rate and regular rhythm. Pulmonary: Effort: Pulmonary effort is normal. Breath sounds: Normal breath sounds. Skin: Findings: Lesion present. Comments: Please refer to images taken in chart for further description. Main, more severe lesion noted on the left hip/left posterior thigh. There is a smaller, minor lesion noted of the right hip. Neurological: Mental Status: He is alert and oriented to person, place, and time. Psychiatric: Mood and Affect: Mood normal. Select Recent Labs BMP: Recent Labs 11/08/24 1531 NA 137 K 4.2 CL 103 CO2 24 BUN 21 CREATININE 1.39* CALCIUM 13.5* LFTs: Recent Labs 11/08/24 1531 11/08/24 1541 AST 14 -- ALT 7 -- PROT 7.7 -- ALBUMIN 3.0* -- BILITOT 0.5 -- BILIRUBINU -- Negative ALKPHOS 84 -- Glucose: Recent Labs 11/08/24 1531 GLUCOSE 104* Procal: No results for input(s): "PROCAL" in the last 72 hours. CBC: Recent Labs 11/08/24 1531 WBC 13.9* HGB 10.4* HCT 31.1* PLT 634* MCV 84.5 RDW 16.5* ABGs: No results for input(s): "PHART", "CWT6VDG", "PO2ART", "CHG4HQO", "SO2ART", "W3UWSCZZ" in the last 72 hours. Lactic Acid: Recent Labs 11/08/24 1531 LACTATE 1.2 INR: No results for input(s): "INR" in the last 72 hours. Cardiac Injury Profile: No results for input(s): "CKTOTAL", "CKMB", "TROPONINI", "TROPHSBASE", "TROPHS2", "BNP" in the last 72 hours. Labs in Last 3 months: No results found for: "TSH", "VITD25", "PSA", "INR", "GLUF" Assessment and Plan: #Chronic hidradenitis suppurativa #Leukocytosis -Acute flare of hidradenitis suppurativa -Wound with increased drainage and erythema -Leukocytosis noted at 13.9 -Lactate and UA within normal limits -No concern for sepsis at this time -CT pelvis (11/08) showed large ulcerative wound of left buttock with adjacent 14.9 cm enhancing mass involving the left gluteal muscles and overlying subcutaneous tissue, mass significantly larger than prior CT on 09/10, cannot rule out malignancy -Blood cultures obtained, patient started on Vanco/Zosyn Plan: -Vanc/Zosyn -Blood cultures obtained -Wound cultures obtained -Tylenol 1000 mg scheduled TID -Oxycodone 2.5-5 mg every 4 hours as needed for moderate and severe pain respectively -Surgery consulted for possible I&D, n.p.o. in anticipation of possible procedure -PT/INR -A1c -TSH -Daily BMP, CBC -PT/OT #PARUL -Cr of 1.39 (baseline of 1.20) -Patient received 1 L NS in ED Plan: -Daily BMP -Will continue to monitor #Bladder colliculi #Hypercalcemia -Calcium of 13.5 -Bladder colliculi noted at 15 mm -Patient denies dysuria, hematuria, discharge, retention, straining Plan: -Daily BMP -Will continue to monitor #Normocytic anemia #Thrombocytosis -Anemia noted at 10.4, recent hemoglobin 08/2024 of 8.9 -Of note, during recent admission on 10/15 patient had arterial bleed from I&D site that was addressed with a stitch from general surgery -Platelet count of 634 Plan: -Daily CBC -Will continue to monitor - Goals of Care: FULL CODE - DVT Prophylaxis: Lovenox 40 q24hr - CrCl >30 - GI Prophylaxis: Not Indicated - Diet: NPO and General - BMI Classification: Body mass index is 25.91 kg/m . The n.p.o. right nowOverweight (BMI 25-29.9) - [facility] - Given the signs and symptoms associated with his primary diagnosis in the setting of his comorbid conditions, he is expected to require >48 hrs of hospital care (i.e. inpatient level care). Cosigned by Paulino Larios MD at 11/09/2024 1:36 PM EST Associated attestation - Paulino Larios MD - 11/09/2024 1:36 PM EST I have personally examined the patient and reviewed the case with the residents. I agree with the current plan of care including the workup, evaluation, management, and diagnosis. Care plan has been discussed. The above documentation has been reviewed and edited as needed to reflect the findings of my evaluation. - pt admitted for hidradenitis suppurativa of the left posterior proximal leg/buttock. - the lesion has been present for months, and has been cultured and treated with atbx at , most recently in late 09/2024. He has been started on Vanco/Zosyn, with wound care, and pain meds. - CT pelvis done: there is a large ulcerative left buttock wound, with a 14.9cm enhancing mass, noted to be significantly larger than in 08/2024. - given consideration for possible underlying neoplasm, he will need bxs, in addition to atbx/wound care. - he is well-known at in [place], and they will accept transfer of the pt when a bed is available. [facility] 11-08-2024 Note Attestation signed by Paulino Larios MD at 11/09/2024 1:36 PM (Updated) I have personally examined the patient and reviewed the case with the residents. I agree with the current plan of care including the workup, evaluation, management, and diagnosis. Care plan has been discussed. The above documentation has been reviewed and edited as needed to reflect the findings of my evaluation. - pt admitted for hidradenitis suppurativa of the left posterior proximal leg/buttock. - the lesion has been present for months, and has been cultured and treated with atbx at , most recently in late 09/2024. He has been started on Vanco/Zosyn, with wound care, and pain meds. - CT pelvis done: there is a large ulcerative left buttock wound, with a 14.9cm enhancing mass, noted to be significantly larger than in 08/2024. - given consideration for possible underlying neoplasm, he will need bxs, in addition to atbx/wound care. - he is well-known at in [place], and they will accept transfer of the pt when a bed is available. Internal Medicine: Med Team Initial History and Physical Kevan La : 1975(49 y.o.) Date: November 08, 2024 TEAM: Isidro Attending: Dr. Larios Subjective: Chief Complaint: Wound Check HPI Kevan La is a 49 y.o. male with PMH chronic hidradenitis suppurativa that presented to [facility] on 11/08/2024 from [facility]. Patient was seen at for severe at bedtime and associated deep-seated tissue infection on 10/10/2024. He had associated fatigue, worsening leukocytosis, and pain. He was started on Vanco Zosyn on 10/10. CT abdomen pelvis showed worsening infection and tissue plane crossing compared to prior CT done in August 2024. Patient was taken for I&D of his left thigh on 10/13/2024. Tissue culture was taken and demonstrated rare mixed anaerobic bacteria, rare mixed gram-positive and gram-negative bacteria. Patient's blood culture taken on 10/10 resulted with Staph hominis slackia exigua on 10/16. Patient received PICC line on 10/21 and was continued on IV Unasyn on discharge. Patient noted that he continued IV antibiotics for approximately 1 week. PICC line now removed. He has since been taking doxycycline twice daily until arrival to ED today 09/07. Patient follows with dermatology. On admission patient was being trialed on at bedtime-301 trial medication for at bedtime. Per Derm recommendation trial medication was stopped. Patient is a stress is not responsive to povorcitinib (RCT candidate), apremilast, isotretinoin, adalimumab, infliximab, moxifloxacin/metronidazole, minocyclin, clindamycin, rifampin, augmentin and doxycycline. Patient to follow-up with dermatology 11/12/2024. Patient arrived to [facility] ED from [facility] for possible sepsis related to chronic hidradenitis affecting mostly his left hip and going down into his left thigh. At [facility] nurse noted that his wounds were draining more than usual and are more erythematous. On presentation to ED patient was hypotensive to 90/60, however this seems to have resolved with repositioning cuff. Patient started on Vanc/Zosyn, blood cultures obtained, wound cultures to be obtained. Patient given 1 L bolus normal saline. CBC showed elevated white count at 13.9. Anemia noted at 10.4, appears chronic. Calcium noted at 13.5. Lactic within normal limits. CT pelvis with contrast was obtained noting a large ulcerative wound at the left buttock with an adjacent 14.9 cm enhancing mass involving the left gluteal muscles and overlying subcutaneous tissue. Mass noted to be significantly larger than on prior CT 09/10. No evidence of osteomyelitis noted. There is a new bladder colliculi be 15 mm. On evaluation patient is resting in bed, appears to be in mild discomfort. Patient notes that he is in pain however pain is more so at baseline. Patient unable to comment if site is worse than usual, notes he is unable to see drainage when dressings are changed. Patient notes no urinary symptoms including hematuriadysuria, dysuria, discharge, or retention. Patient otherwise notes no chest pain, shortness of breath, nausea, vomiting, diarrhea. Review of Systems Please review pertinent positives and negatives in HPI. No past medical history on file. No past surgical history on file. No family history on file. Social History Tobacco Use Smoking Status Not on file Smokeless Tobacco Not on file Social History Substance and Sexual Activity Alcohol Use Not on file Social History Substance and Sexual Activity Drug Use Not on file No Known Allergies Prior to Admission medications Not on File Objective: Vitals: 11/08/24 1830 11/08/24 1845 11/08/24 1846 11/08/24 1900 BP: 76/ (more content not included)... [facility] 11-08-2024 History and physical note Internal Medicine: Med Team Initial History and Physical Kevan La : 1975(49 y.o.) Date: November 08, 2024 TEAM: Isidro Attending: Dr. Larios Subjective: Chief Complaint: Wound Check HPI Kevan La is a 49 y.o. male with PMH chronic hidradenitis suppurativa that presented to [facility] on 11/08/2024 from [facility]. Patient was seen at for severe at bedtime and associated deep-seated tissue infection on 10/10/2024. He had associated fatigue, worsening leukocytosis, and pain. He was started on Vanco Zosyn on 10/10. CT abdomen pelvis showed worsening infection and tissue plane crossing compared to prior CT done in August 2024. Patient was taken for I&D of his left thigh on 10/13/2024. Tissue culture was taken and demonstrated rare mixed anaerobic bacteria, rare mixed gram-positive and gram-negative bacteria. Patient's blood culture taken on 10/10 resulted with Staph hominis slackia exigua on 10/16. Patient received PICC line on 10/21 and was continued on IV Unasyn on discharge. Patient noted that he continued IV antibiotics for approximately 1 week. PICC line now removed. He has since been taking doxycycline twice daily until arrival to ED today 09/07. Patient follows with dermatology. On admission patient was being trialed on at bedtime-301 trial medication for at bedtime. Per Derm recommendation trial medication was stopped. Patient is a stress is not responsive to povorcitinib (RCT candidate), apremilast, isotretinoin, adalimumab, infliximab, moxifloxacin/metronidazole, minocyclin, clindamycin, rifampin, augmentin and doxycycline. Patient to follow-up with dermatology 11/12/2024. Patient arrived to [facility] ED from [facility] for possible sepsis related to chronic hidradenitis affecting mostly his left hip and going down into his left thigh. At [facility] nurse noted that his wounds were draining more than usual and are more erythematous. On presentation to ED patient was hypotensive to 90/60, however this seems to have resolved with repositioning cuff. Patient started on Vanc/Zosyn, blood cultures obtained, wound cultures to be obtained. Patient given 1 L bolus normal saline. CBC showed elevated white count at 13.9. Anemia noted at 10.4, appears chronic. Calcium noted at 13.5. Lactic within normal limits. CT pelvis with contrast was obtained noting a large ulcerative wound at the left buttock with an adjacent 14.9 cm enhancing mass involving the left gluteal muscles and overlying subcutaneous tissue. Mass noted to be significantly larger than on prior CT 09/10. No evidence of osteomyelitis noted. There is a new bladder colliculi be 15 mm. On evaluation patient is resting in bed, appears to be in mild discomfort. Patient notes that he is in pain however pain is more so at baseline. Patient unable to comment if site is worse than usual, notes he is unable to see drainage when dressings are changed. Patient notes no urinary symptoms including hematuriadysuria, dysuria, discharge, or retention. Patient otherwise notes no chest pain, shortness of breath, nausea, vomiting, diarrhea. Review of Systems Please review pertinent positives and negatives in HPI. No past medical history on file. No past surgical history on file. No family history on file. Social History Tobacco Use Smoking Status Not on file Smokeless Tobacco Not on file Social History Substance and Sexual Activity Alcohol Use Not on file Social History Substance and Sexual Activity Drug Use Not on file No Known Allergies Prior to Admission medications Not on File Objective: Vitals: 11/08/24 1830 11/08/24 1845 11/08/24 1846 11/08/24 1900 BP: 76/52 92/65 92/65 92/65 Pulse: 75 75 73 75 Resp: 19 16 15 Temp: TempSrc: SpO2: 95% 99% 100% 99% Weight: Physical Exam Constitutional: General: He is not in acute distress. Appearance: He is not ill-appearing, toxic-appearing or diaphoretic. HENT: Head: Normocephalic. Cardiovascular: Rate and Rhythm: Normal rate and regular rhythm. Pulmonary: Effort: Pulmonary effort is normal. Breath sounds: Normal breath sounds. Skin: Findings: Lesion present. Comments: Please refer to images taken in chart for further description. Main, more severe lesion noted on the left hip/left posterior thigh. There is a smaller, minor lesion noted of the right hip. Neurological: Mental Status: He is alert and oriented to person, place, and time. Psychiatric: Mood and Affect: Mood normal. Select Recent Labs BMP: Recent Labs 11/08/24 1531 NA 137 K 4.2 CL 103 CO2 24 BUN 21 CREATININE 1.39* CALCIUM 13.5* LFTs: Recent Labs 11/08/24 1531 11/08/24 1541 AST 14 -- ALT 7 -- PROT 7.7 -- ALBUMIN 3.0* -- BILITOT 0.5 -- BILIRUBINU -- Negative ALKPHOS 84 -- Glucose: Recent Labs 11/08/24 1531 GLUCOSE 104* Procal: No results for input(s): "PROCAL" in the last 72 hours. CBC: Recent Labs 11/08/24 1531 WBC 13.9* HGB 10.4* HCT 31.1* PLT 634* MCV 84.5 RDW 16.5* ABGs: No results for input(s): "PHART", "HDZ4UHI", "PO2ART", "QKF1HGQ", "SO2ART", "K7INTJCE" in the last 72 hours. Lactic Acid: Recent Labs 11/08/24 1531 LACTATE 1.2 INR: No results for input(s): "INR" in the last 72 hours. Cardiac Injury Profile: No results for input(s): "CKTOTAL", "CKMB", "TROPONINI", "TROPHSBASE", "TROPHS2", "BNP" in the last 72 hours. Labs in Last 3 months: No results found for: "TSH", "VITD25", "PSA", "INR", "GLUF" Assessment and Plan: #Chronic hidradenitis suppurativa #Leukocytosis -Acute flare of hidradenitis suppurativa -Wound with increased drainage and erythema -Leukocytosis noted at 13.9 -Lactate and UA within normal limits -No concern for sepsis at this time -CT pelvis (11/08) showed large ulcerative wound of left buttock with adjacent 14.9 cm enhancing mass involving the left gluteal muscles and overlying subcutaneous tissue, mass significantly larger than prior CT on 09/10, cannot rule out malignancy -Blood cultures obtained, patient started on Vanco/Zosyn Plan: -Vanc/Zosyn -Blood cultures obtained -Wound cultures obtained -Tylenol 1000 mg scheduled TID -Oxycodone 2.5-5 mg every 4 hours as needed for moderate and severe pain respectively -Surgery consulted for possible I&D, n.p.o. in anticipation of possible procedure -PT/INR -A1c -TSH -Daily BMP, CBC -PT/OT #PARUL -Cr of 1.39 (baseline of 1.20) -Patient received 1 L NS in ED Plan: -Daily BMP -Will continue to monitor #Bladder colliculi #Hypercalcemia -Calcium of 13.5 -Bladder colliculi noted at 15 mm -Patient denies dysuria, hematuria, discharge, retention, straining Plan: -Daily BMP -Will continue to monitor #Normocytic anemia #Thrombocytosis -Anemia noted at 10.4, recent hemoglobin 08/2024 of 8.9 -Of note, during recent admission on 10/15 patient had arterial bleed from I&D site that was addressed with a stitch from general surgery -Platelet count of 634 Plan: -Daily CBC -Will continue to monitor - Goals of Care: FULL CODE - DVT Prophylaxis: Lovenox 40 q24hr - CrCl >30 - GI Prophylaxis: Not Indicated - Diet: NPO and General - BMI Classification: Body mass index is 25.91 kg/m . The n.p.o. right nowOverweight (BMI 25-29.9) - Disposition: Admit to F. - Given the signs and symptoms associated with his primary diagnosis in the setting of his comorbid conditions, he is expected to require >48 hrs of hospital care (i.e. inpatient level care). Cosigned by Paulino Larios MD at 11/09/2024 1:36 PM EST Associated attestation - Paulino Larios MD - 11/09/2024 1:36 PM EST I have personally examined the patient and reviewed the case with the residents. I agree with the current plan of care including the workup, evaluation, management, and diagnosis. Care plan has been discussed. The above documentation has been reviewed and edited as needed to reflect the findings of my evaluation. - pt admitted for hidradenitis suppurativa of the left posterior proximal leg/buttock. - the lesion has been present for months, and has been cultured and treated with atbx at , most recently in late 09/2024. He has been started on Vanco/Zosyn, with wound care, and pain meds. - CT pelvis done: there is a large ulcerative left buttock wound, with a 14.9cm enhancing mass, noted to be significantly larger than in 08/2024. - given consideration for possible underlying neoplasm, he will need bxs, in addition to atbx/wound care. - he is well-known at in [place], and they will accept transfer of the pt when a bed is available. documented in this encounter [facility] 11-08-2024 Emergency department Note Patient requested pain medication and dinner. This nurse messaged provider [facility] 11-08-2024 Emergency department Note Patient is aware of patients BP and MAP. [facility] 11-08-2024 Emergency department Note Liter of NS hung for systolic of 88. IV obtained with blood work and first set of cultures. Will notify doctor of BP. [facility] 11-08-2024 Physician Emergency department Note EMERGENCY DEPARTMENT ENCOUNTER Pt Name: Kevan La Birthdate 1975 Date of evaluation: 11/08/2024 ED Provider: Juvenal Fierro MD CHIEF COMPLAINT Chief Complaint Patient presents with Wound Check Pt arrives from SNF for possible sepsis. Had wound on buttock drained at in Sep. Has not had IV antibiotics at facility. Hx of rare skin condition with frequent abscesses. Aox4. Some N/V. Hypotensive 80-90 systolic. HISTORY OF PRESENT ILLNESS (Location/Symptom, Timing/Onset, Context/Setting, Quality, Duration, Modifying Factors, Severity) Note limiting factors. I wore appropriate PPE for the entirety of this encounter. HPI Kevan La is a 49 y.o. adult who presents to the emergency department with chief complaint of possible sepsis. Patient has chronic hidradenitis affecting mostly his left hip and going down into his left thigh as well. Patient has routine flareups requiring antibiotics, and he had an incision and drainage done in September at . Patient is currently at a SNF, and he did not receive any IV antibiotics while he was there. Today nurses at the SNF noticed that his wounds were draining more than usual and are more erythematous than usual, and that his blood pressure was a little softer than usual. This constellation of symptoms breathing concern for sepsis with a symptom here to the ED. On presentation to the ED patient is hypotensive to the 90/60, says his blood pressure is usually well over 100 systolic. Hidradenitis sites are draining with dressing on them, dressing is clean for the most part with some drainage patient says it was replaced this morning. Patient feels all right aside from a moderate amount of pain from his hidradenitis which she says is more or less his baseline. Nursing Notes were reviewed. Limitations to history: None Outside historians: None REVIEW OF SYSTEMS Review of Systems Pertinent positives and negatives as per HPI. PAST MEDICAL HISTORY No past medical history on file. SURGICAL HISTORY No past surgical history on file. CURRENT MEDICATIONS Previous Medications No medications on file ALLERGIES Patient has no known allergies. FAMILY HISTORY No family history on file. SOCIAL HISTORY Social History Socioeconomic History Marital status: Single Social Drivers of Health Financial Resource Strain: Medium Risk (10/12/2024) Received from [facility] Overall Financial Resource Strain (CARDIA) Difficulty of Paying Living Expenses: Somewhat hard Food Insecurity: Food Insecurity Present (10/11/2024) Received from [facility] Hunger Vital Sign Worried About Running Out of Food in the Last Year: Sometimes true Ran Out of Food in the Last Year: Sometimes true Transportation Needs: No Transportation Needs (10/12/2024) Received from [facility] PRAPARE - Transportation Lack of Transportation (Medical): No Lack of Transportation (Non-Medical): No Intimate Partner Violence: Not At Risk (10/11/2024) Received from [facility] Humiliation, Afraid, Rape, and Kick questionnaire Fear of Current or Ex-Partner: No Emotionally Abused: No Physically Abused: No Sexually Abused: No Housing Stability: Low Risk (10/12/2024) Received from [facility] Housing Stability Vital Sign Unable to Pay for Housing in the Last Year: No Number of Times Moved in the Last Year: 1 Homeless in the Last Year: No Recent Concern: Housing Stability - High Risk (09/17/2024) Received from [facility] Housing Stability Vital Sign Unable to Pay for Housing in the Last Year: Yes Number of Times Moved in the Last Year: 0 Homeless in the Last Year: No SCREENINGS PHYSICAL EXAM ED Triage Vitals [11/08/24 1508] Temp Heart Rate Resp BP 37.1 C (98.8 F) 82 15 94/61 SpO2 Temp Source Heart Rate Source Patient Position 96 % Oral Monitor -- BP Location FiO2 (%) -- -- Physical Exam Vitals reviewed. Constitutional: General: He is not in acute distress. Appearance: Normal appearance. He is not ill-appearing, toxic-appearing or diaphoretic. HENT: Head: Normocephalic and atraumatic. Eyes: General: No scleral icterus. Right eye: No discharge. Left eye: No discharge. Cardiovascular: Rate and Rhythm: Normal rate and regular rhythm. Pulmonary: Effort: Pulmonary effort is normal. Breath sounds: Normal breath sounds. Skin: General: Skin is warm and dry. Findings: Lesion present. Comments: Diffuse hidradenitis on left glute and left thigh. Dressing has some purulent drainage on it, but is for the most part clean and dry. Neurological: Mental Status: He is alert and oriented to person, place, and time. Psychiatric: Mood and Affect: Mood normal. Behavior: Behavior normal. Thought Content: Thought content normal. DIAGNOSTIC RESULTS RADIOLOGY (Per Emergency Physician): Interpretation per the Radiologist below, if available at the time of this note: No orders to display ED BEDSIDE ULTRASOUND: Performed by ED Physician - none LABS: Labs Reviewed BLOOD CULTURE BLOOD CULTURE AEROBIC AND ANAEROBIC CULTURE WITH STAIN Narrative: The following orders were created for panel order Aerobic and Anaerobic Culture with Stain. Procedure Abnormality Status --------- ------ Culture, Aerobic Bacteri...[[id number]] Anaerobic culture[[id number]] Please view results for these tests on the individual orders. CULTURE, AEROBIC BACTERIA WITH GRAM STAIN CULTURE ANAEROBIC CBC WITH AUTO DIFFERENTIAL COMPREHENSIVE METABOLIC PANEL LACTIC ACID WITH REFLEX COMPLETE URINALYSIS WITH REFLEX TO CULTURE Narrative: The following orders were created for panel order Urinalysis Complete with reflex to Culture. Procedure Abnormality Status --------- ------ Complete Urinalysis[[id number]] Please view results for these tests on the individual orders. COMPLETE URINALYSIS All other labs were within normal range or not returned as of this dictation. EMERGENCY DEPARTMENT COURSE and DIFFERENTIAL DIAGNOSIS/MDM: Vitals: Vitals: 11/08/24 1508 BP: 94/61 Pulse: 82 Resp: 15 Temp: 37.1 C (98.8 F) TempSrc: Oral SpO2: 96% MDM elements: The patient presented with chief complaint of possible sepsis. The differential diagnosis associated with this patient's presentation includes worsening hidradenitis, cellulitis, sepsis. Our workup consisted of ordering/reviewing: CBC CMP lactic acid blood cultures wound cultures urinalysis. Patient is in agreement with this plan. Patient arrived to the ED hypotensive to 90/60. Patient says she is usually over 100 systolic. His hidradenitis area had intact dressing over it with some drainage. There was erythema and warmth over his hidradenitis sites. Patient was given Tylenol and fentanyl for pain. He was also given a 1 L bolus of normal saline, and started on broad-spectrum Vanco and Zosyn. CBC showed markedly elevated white count. Cultures pending. Patient signed out to Dr. Ruiz at 4:56 PM. This note is up to date up to the time of sign out. The physician carrying out continued care will update any assessments or plans as as the need develops. They will continue the ongoing visit, including all aspects of the Medical Decision Making. Medications fentaNYL (Sublimaze) injection 50 mcg (has no administration in time range) ondansetron (Zofran) injection 4 mg (has no administration in time range) acetaminophen (Tylenol) tablet 1,000 mg (has no administration in time range) sodium chloride 0.9 % bolus 1,000 mL (has no administration in time range) REVAL: CONSULTS: None PROCEDURES: Unless otherwise noted below, none Procedures FINAL IMPRESSION No diagnosis found. DISPOSITION PATIENT REFERRED TO: No follow-up provider specified. DISCHARGE MEDICATIONS: New Prescriptions No medications on file (Comment: Please note this report has been produced using speech recognition software and may contain errors related to that system including errors in grammar, punctuation, and spelling, as well as words and phrases that may be inappropriate. If there are any questions or concerns please feel free to contact the dictating provider for clarification.) Juvenal Fierro MD (electronically signed) Emergency Medicine Provider Juvenal Fierro MD Resident 11/08/24 7893 Cosigned by Fer Kennedy MD at 11/08/2024 6:55 PM EST [employer] Phone: 11-08-2024 Physician Emergency department Note Emergency Department Encounter [facility] EMERGENCY DEPT Patient: Kevan La : 1975 Date of Evaluation: 11/08/2024 ED Supervising Physician: Fer Kennedy MD I personally evaluated Kevan La and made/approved the management plan and take responsibility for the patient management. This will serve as my Supervisory note and shared attestation. I did perform a substantive portion of the visit including all aspects of the Medical Decision Making. I wore appropriate PPE for the entirety of this encounter. In brief, Kevan La is a 49 y.o. that presents to the emergency department for low blood pressure and wound check. Patient coming from [facility] for possible sepsis. Patient has chronic refractory hidradenitis suppurativa requiring multiple admissions most recently at with IV antibiotics. Currently on doxycycline. Had some nausea reported vomiting denies fevers chills. Focused exam: Vitals blood pressure now improved he is afebrile nontoxic no distress Left gluteal area with multiple chronic appearing wounds healing nonhealing and there is purulence coming from a masslike area, there is mild cellulitis of this area, there is a chronic nonhealing wound that is packed, no crepitus, there is tenderness, no streaking Brief ED course/MDM: 49-year-old male presents for worsening hidradenitis and low blood pressure. Differential abscess, cellulitis, necrotizing fasciitis. Plan is for labs, cultures, CT, IV fluids and antibiotics, surgery consult. Anticipate transfer to as he apparently is on a clinical trial there and was transferred there last time. Does not meet SIRS criteria. Diagnostics interpreted by me: CT scan(s) CT pelvis shows what appears to be a fluid collection in the left gluteal area I personally discussed the patient's management with other clinicians: none All diagnostic, treatment, and disposition decisions were made by myself in conjunction with the Resident. I also supervised gomez portions of any procedures performed by the Resident. For all further details of the patient's emergency department visit, please see their documentation. (Comment: Please note this report has been produced using speech recognition software and may contain errors related to that system including errors in grammar, punctuation, and spelling, as well as words and phrases that may be inappropriate. If there are any questions or concerns please feel free to contact the dictating provider for clarification.) Fer Kennedy MD [employer] Fer Kennedy MD 11/08/24 1651 [employer] Work Phone: 10-23-2024 Nurse Note Transport forgot paper chart- all chart information, including script faxed to [facility]- fax #[phone] ATTENTION : NURSE MAGNUS This nurse called report to Magnus RN at [facility]-the facility of choice by patient. Patient leaving with PICC in place in [facility] dated 10/20/24. Script for pain medications in packet of paper for the facility, RN at facility aware. Awaiting for transportation to arrive. Pt comfortable and stable. IV consult received for PICC placement. Saw patient at bedside and answered questions, discussed risks and benefits. Patient agreeable to PICC placement tomorrow. Will see patient for PICC placement on 10/20/2024. Patient returned from OR at 1100. At 1130 patient was having chills and HR was 140. Resident Brenda Linares came to bedside and EKG done. Rapid response came to room due to increased HR. Labs done. Patient was on 2 L nc upon return from OR. Temp went up to 39.2 Received NS iv bolus x2 due to decreased bp. Vitals at 1730 35.9-73-16-92/50 and pulse ox 96% on room air. Patient ate lunch and dinner. Surgery came in to see patient per his request on info of procedure done. Surgeon changed dsg at around 4pm due to large amount of serosang drainage. Used NS wet to dry kerlix and covered with abd dsg and paper tape. Said to do dsg twice daily. documented in this encounter [facility] Work Phone: 10-23-2024 Miscellaneous Notes Problem: Pain - Adult Goal: Verbalizes/displays adequate comfort level or baseline comfort level Outcome: Adequate for Discharge Problem: Safety - Adult Goal: Free from fall injury Outcome: Adequate for Discharge Problem: Discharge Planning Goal: Discharge to home or other facility with appropriate resources Outcome: Adequate for Discharge Problem: Chronic Conditions and Co-morbidities Goal: Patient's chronic conditions and co-morbidity symptoms are monitored and maintained or improved Outcome: Adequate for Discharge Problem: Nutrition Goal: Nutrient intake appropriate for maintaining nutritional needs Outcome: Adequate for Discharge Problem: Skin Goal: Decreased wound size/increased tissue granulation at next dressing change Outcome: Adequate for Discharge Goal: Participates in plan/prevention/treatment measures Outcome: Adequate for Discharge Goal: Prevent/manage excess moisture Outcome: Adequate for Discharge Goal: Prevent/minimize sheer/friction injuries Outcome: Adequate for Discharge Goal: Promote/optimize nutrition Outcome: Adequate for Discharge Goal: Promote skin healing Outcome: Adequate for Discharge Problem: Pain Goal: Takes deep breaths with improved pain control throughout the shift Outcome: Adequate for Discharge Goal: Turns in bed with improved pain control throughout the shift Outcome: Adequate for Discharge Goal: Walks with improved pain control throughout the shift Outcome: Adequate for Discharge Goal: Performs ADL's with improved pain control throughout shift Outcome: Adequate for Discharge Goal: Participates in PT with improved pain control throughout the shift Outcome: Adequate for Discharge Goal: Free from opioid side effects throughout the shift Outcome: Adequate for Discharge Goal: Free from acute confusion related to pain meds throughout the shift Outcome: Adequate for Discharge Problem: Fall/Injury Goal: Not fall by end of shift Outcome: Adequate for Discharge Goal: Be free from injury by end of the shift Outcome: Adequate for Discharge Goal: Verbalize understanding of personal risk factors for fall in the hospital Outcome: Adequate for Discharge Goal: Verbalize understanding of risk factor reduction measures to prevent injury from fall in the home Outcome: Adequate for Discharge Goal: Pace activities to prevent fatigue by end of the shift Outcome: Adequate for Discharge The patient's goals for the shift include getting out of the hospital today. The clinical goals for the shift include Patient will remain free from falls, by the end of this shift. The patient's goals for the shift include patient will remain safe and stable this shift The clinical goals for the shift include Patient will remain free from falls, by the end of this shift. Patient remained free from injuries/falls during this shift. Patient is in bed, HOB elevated, call light within reach. Plan of care ongoing. Problem: Pain - Adult Goal: Verbalizes/displays adequate comfort level or baseline comfort level Outcome: Not Progressing Associated Problem(s): Abscess Kevan La is a 49 y.o. male with refractory hidradenitis supprativa (HS) not responding to povorcitinib (RCT candidate), apremilast, isotretinoin, adalimumab, infliximab, moxifloxacin/metronidazole, minocyclin, clindamycin, rifampin, augmentin and doxycycline. He came to [facility] with severe HS and associated deep seated tissue infection. He had fatigue, malaise, worsening leukocytosis and pain. CT AP done showed worsening infection and tissue plane crossing compared to CT done in August. The left gluteus randell muscle is enlarged, heterogeneously enhancing with the serpiginous fluid pockets consistent with phlegmon/abscess. This measures up to 9.2 x 5.7 cm in transaxial dimension by at least 13.2 cm longitudinally. Started on IV vancomycin and Zosyn. There is risk of muscle necrosis, spreading to deeper tissue plane and sepsis. Acute care surgery took patient for incision and drainage of his L thigh on 10/13/2024. Dermatology has been consulted and are following. Appreciate recommendations. Patient with arterial bleed from I&D site on 10/15. Addressed with stitch from general surgery. Patient has remained stable. Continued on IV vanc and zosyn at this time. Tissue culture taken 10/13 demonstrates rare mixed anaerobic bacteria, rare mixed gram (+) and gram (-) bacteria; no organisms seen. Patient's blood culture (taken 10/10) resulted with Mylesia dhavala on 10/16. Formal ID consult placed for further recommendations. Updates 10/22: - Continue unasyn, end 10/28 - PICC placed - Rescheduled pain regimen for optimization; oxy 10mg q4 hours and changed breakthrough dilaudid to dressing changes only --> nursing reports blood pressure decrease with dilaudid; will only give at dressing changes for breakthrough pain as this is when he has the most pain #Gluteal abscess s/p I&D 10/13 #Deep tissue infection #Refractory hidradenitis suppurativa :: On vanc and unasyn (zosyn stopped and unasyn started on 10/19) --> can broaden to meropenem if patient's WBC continue to uptrend / he becomes HDUS :: CT scan finding warrants drainage / debridement and tissue sample extraction for culture and sensitivity - s/p incision and drainage on 10/13; pending tissue cultures --> Wet to dry dressing BID per surgery --> Clindamycin around wound area BID :: Prior blood cultures taken on 10/10 --> one tube with Gram positive cocci, pairs and chains --> resulted 10/16 with slacynthiaia exmohindera --> one tube with Staph hominis identified :: Blood cultures taken 10/13/2024 NGTD :: ID consult placed. Recommendations appreciated :: Tissue culture 10/13 with rare mixed anaerobic bacteria, rare mixed gram (+) and gram (-) bacteria; no organisms seen :: PICC placement ordered 10/19; done :: BLE DVT U/S: --> Right Lower Venous: No evidence of acute deep vein thrombus visualized in the right lower extremity. Additional Findings; Lymph nodes noted in groin area. --> Left Lower Venous: No evidence of acute deep vein thrombus visualized in the left lower extremity. There is a non-vascular structure with measurements of 1.5 cm x 3.8 cm noted in groin area. Additional Findings; Lymph nodes noted in groin area. 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 Problem: Pain - Adult Goal: Verbalizes/displays adequate comfort level or baseline comfort level Outcome: Progressing The patient's goals for the shift include patient will remain safe and stable this shift The clinical goals for the shift include Pt will be assess and monitor for pain and treat during this shift The patient's goals for the shift include patient will remain safe and stable this shift The clinical goals for the shift include Get up oob to chair, no falls or injuries Over the shift, the patient did not make progress toward the following goals. Barriers to progression include . Recommendations to address these barriers include . Associated Problem(s): Abscess Kevan La is a 49 y.o. male with refractory hidradenitis supprativa (HS) not responding to povorcitinib (RCT candidate), apremilast, isotretinoin, adalimumab, infliximab, moxifloxacin/metronidazole, minocyclin, clindamycin, rifampin, augmentin and doxycycline. He came to [facility] ED with severe HS and associated deep seated tissue infection. He had fatigue, malaise, worsening leukocytosis and pain. CT AP done showed worsening infection and tissue plane crossing compared to CT done in August. The left gluteus randell muscle is enlarged, heterogeneously enhancing with the serpiginous fluid pockets consistent with phlegmon/abscess. This measures up to 9.2 x 5.7 cm in transaxial dimension by at least 13.2 cm longitudinally. Started on IV vancomycin and Zosyn. There is risk of muscle necrosis, spreading to deeper tissue plane and sepsis. Acute care surgery took patient for incision and drainage of his L thigh on 10/13/2024. Dermatology has been consulted and are following. Appreciate recommendations. Patient with arterial bleed from I&D site on 10/15. Addressed with stitch from general surgery. Patient has remained stable. Continued on IV vanc and zosyn at this time. Tissue culture taken 10/13 demonstrates rare mixed anaerobic bacteria, rare mixed gram (+) and gram (-) bacteria; no organisms seen. Patient's blood culture (taken 10/10) resulted with Mylesia dhavala on 10/16. Formal ID consult placed for further recommendations. Updates 10/21: -continue unasyn, end 10/28 -PICC placed -BLE venous duplex performed #Gluteal abscess s/p I&D 10/13 #Deep tissue infection #Refractory hidradenitis suppurativa :: On vanc and unasyn (zosyn stopped and unasyn started on 10/19) --> can broaden to meropenem if patient's WBC continue to uptrend / he becomes HDUS :: CT scan finding warrants drainage / debridement and tissue sample extraction for culture and sensitivity - s/p incision and drainage on 10/13; pending tissue cultures --> Wet to dry dressing BID per surgery --> Clindamycin around wound area BID :: Prior blood cultures taken on 10/10 --> one tube with Gram positive cocci, pairs and chains --> resulted 10/16 with slacynthiaia dhavala --> one tube with Staph hominis identified :: Blood cultures taken 10/13/2024 NGTD :: ID consult placed. Recommendations appreciated :: Tissue culture 10/13 with rare mixed anaerobic bacteria, rare mixed gram (+) and gram (-) bacteria; no organisms seen :: PICC placement ordered 10/19; done :: BLE DVT U/S: --> Right Lower Venous: No evidence of acute deep vein thrombus visualized in the right lower extremity. Additional Findings; Lymph nodes noted in groin area. --> Left Lower Venous: No evidence of acute deep vein thrombus visualized in the left lower extremity. There is a non-vascular structure with measurements of 1.5 cm x 3.8 cm noted in groin area. Additional Findings; Lymph nodes noted in groin area. 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, most recently was on home ibuprofen - Hold home ibuprofen - UA unremarkable - CT A/P no hydronephrosis or renal abnormality - Avoid nephrotoxic drug, hypotension, sepsis, dehydration - Continuing to endorse oral hydration Fluid: PRN Electrolyte: PRN Diet: regular DVT prophylaxis: SCD, UFH Code status: FULL CODE NOK: Omkar La (brother, ) Problem: Pain - Adult Goal: Verbalizes/displays adequate comfort level or baseline comfort level Outcome: Progressing The patient's goals for the shift include patient will remain safe and stable this shift The clinical goals for the shift include Progressing The patient's goals for the shift include patient will remain safe and stable this shift The clinical goals for the shift include Patient will remain safe and stable this shift. Patient remained safe and stable this shift. Pre-Procedure Checklist: Emergent Line Insertion: No Type of Line to be Placed: PICC Consent Obtained: Yes Emergency Medication Necessary: No Patient Identified with 2 Independent Identifiers: Yes Review of Allergies, Anticoagulation, Relevant Labs, ECG/Telemetry: Yes Risks/Benefits/Alternatives Discussed with Patient/POA/Legal Silk Brusher: Yes Stop Sign on Door: Yes Time Out Performed: Yes Catheter Exchange: No Positioning Checklist: All People, Including Patient, in the Room with Cap and Mask: Yes Fluoroscopy Used to Identify Vessel and Guide Insertion: No Sterile Cover Used: Yes Full Barrier Precautions Followed (Mask, Cap, Gown, Gloves): Yes Hands Washed: Yes Monitors Attached with Sound Alarms On: No Full Body Sterile Drape (Head-to-Toe) Used to Cover Patient: Yes Trendelenburg Position (For IJ and Subclavian): No CHG Skin Prep Used and Allowed to Air Dry to Skin Procedure: Yes Procedure Checklist: Blood Aspirated From All Lumens, All Ports Subsequently Flushed: Yes Catheter Caps Placed on All Lumens; Lumens Clamped: Yes Maintain Guidewire Control Throughout, Ensuring Guidewire Removal: Yes Maintain Sterile Field Throughout Insertion: Yes Catheter Secured: Yes Confirmatory Test of Venous Placement: Non-Pulsatile Blood Post Procedure Checklist: Date and Time Written on Dressing: Yes Sharp and Wire Count and Safe Disposal of all Sharps/Wires: Yes Sterile Dressing Applied Per Protocol: Yes X-ray Ordered or ECG Image: Yes PICC Insertion Details: Size (Fr): 4 Lumen Type:single Catheter to Vein Ratio Less Than 50%: Yes Total Length (cm): 44 External Length (cm): 0 Orientation: right Location: basilic Site Prep: Chlorohexidine; Usual sterile procedure followed Local Anesthetic: Injectable/Subcutaneous Indication: Insertion Team Members in the Room: NurseBLAIR Initial Extremity Circumference (cm): 33 Insertion Attempts: 1 Patient Tolerance: Tolerated Well, Age Appropriate Comfort Measures: Subcutaneous anesthetic; Verbal Procedure Location: Bedside Safety Measures: Patient specific safety measures addressed with RN Estimated Blood Loss (mL): Vessel Fully Compressible Proximally and Distally to Insertion Site: Yes Brisk Blood Return Obtained and Line Draws Easily: Yes Tip Location:SVC Line Confirmation: ECG Lot #:[id number] Sales Financial Analyst: Bard PICC Line Exp Date:07/18/2025 Securement: Stat Lock Post Procedure Checklist: Handoff with RN; Obtain all new IV tubing prior to use; Bed at lowest level and wheels locked; Line discharge information at bedside. Additional Details: Line was inserted using Modified Seldinger's Technique. Placed by: Shreya Bailey RN-[facility] Associated Problem(s): Abscess Kevan La is a 49 y.o. male with refractory hidradenitis supprativa (HS) not responding to povorcitinib (RCT candidate), apremilast, isotretinoin, adalimumab, infliximab, moxifloxacin/metronidazole, minocyclin, clindamycin, rifampin, augmentin and doxycycline. He came to [facility] ED with severe HS and associated deep seated tissue infection. He had fatigue, malaise, worsening leukocytosis and pain. CT AP done showed worsening infection and tissue plane crossing compared to CT done in August. The left gluteus randell muscle is enlarged, heterogeneously enhancing with the serpiginous fluid pockets consistent with phlegmon/abscess. This measures up to 9.2 x 5.7 cm in transaxial dimension by at least 13.2 cm longitudinally. Started on IV vancomycin and Zosyn. There is risk of muscle necrosis, spreading to deeper tissue plane and sepsis. Acute care surgery took patient for incision and drainage of his L thigh on 10/13/2024. Dermatology has been consulted and are following. Appreciate recommendations. Patient with arterial bleed from I&D site on 10/15. Addressed with stitch from general surgery. Patient has remained stable. Continued on IV vanc and zosyn at this time. Tissue culture taken 10/13 demonstrates rare mixed anaerobic bacteria, rare mixed gram (+) and gram (-) bacteria; no organisms seen. Patient's blood culture (taken 10/10) resulted with Slackia exigua on 10/16. Formal ID consult placed for further recommendations. Updates 10/20: -continue unasyn, end 10/28 -will get BL LE duplex for leg pain, limited mobility -needs PICC placed #Gluteal abscess s/p I&D 10/13 #Deep tissue infection #Refractory hidradenitis suppurativa :: On vanc and unasyn (zosyn stopped and unasyn started on 10/19) --> can broaden to meropenem if patient's WBC continue to uptrend / he becomes HDUS :: CT scan finding warrants drainage / debridement and tissue sample extraction for culture and sensitivity - s/p incision and drainage on 10/13; pending tissue cultures --> Wet to dry dressing BID per surgery --> Clindamycin around wound area BID :: Prior blood cultures taken on 10/10 --> one tube with Gram positive cocci, pairs and chains --> resulted 10/16 with slackia exigua --> one tube with Staph hominis identified :: Blood cultures taken 10/13/2024 NGTD :: ID consult placed. 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, most recently was on home ibuprofen - Hold home ibuprofen - UA unremarkable - CT A/P no hydronephrosis or renal abnormality - Avoid nephrotoxic drug, hypotension, sepsis, dehydration - Continuing to endorse oral hydration Fluid: PRN Electrolyte: PRN Diet: regular DVT prophylaxis: SCD, UFH Code status: FULL CODE NOK: Omkar La (brother, ) Problem: Pain - Adult Goal: Verbalizes/displays adequate comfort level or baseline comfort level Outcome: Progressing The patient's goals for the shift include patient will remain safe and stable this shift The clinical goals for the shift include Pt will be free from falls/injuries during this shift The patient's goals for the shift include patient will remain safe and stable this shift The clinical goals for the shift include Patient will state pain is being controlled during the shift Over the shift, the patient did not make progress toward the following goals. Barriers to progression include the state of healing from his wound. Recommendations to address these barriers include daily dressing changes as ordered to help promote healing, and getting the correct amount of protein and daily nutrients to also slate roofer helper in healing. Problem: Pain - Adult Goal: Verbalizes/displays adequate comfort level or baseline comfort level Outcome: Progressing Problem: Safety - Adult Goal: Free from fall injury Outcome: Progressing Problem: Discharge Planning Goal: Discharge to home or other facility with appropriate resources Outcome: Progressing Problem: Chronic Conditions and Co-morbidities Goal: Patient's chronic conditions and co-morbidity symptoms are monitored and maintained or improved Outcome: Progressing Problem: Nutrition Goal: Nutrient intake appropriate for maintaining nutritional needs Outcome: Progressing Problem: Skin Goal: Decreased wound size/increased tissue granulation at next dressing change Outcome: Progressing Goal: Participates in plan/prevention/treatment measures Outcome: Progressing Goal: Prevent/manage excess moisture Outcome: Progressing Goal: Prevent/minimize sheer/friction injuries Outcome: Progressing Goal: Promote/optimize nutrition Outcome: Progressing Goal: Promote skin healing Outcome: Progressing Problem: Pain Goal: Takes deep breaths with improved pain control throughout the shift Outcome: Progressing Goal: Turns in bed with improved pain control throughout the shift Outcome: Progressing Goal: Walks with improved pain control throughout the shift Outcome: Progressing Goal: Performs ADL's with improved pain control throughout shift Outcome: Progressing Goal: Participates in PT with improved pain control throughout the shift Outcome: Progressing Goal: Free from opioid side effects throughout the shift Outcome: Progressing Goal: Free from acute confusion related to pain meds throughout the shift Outcome: Progressing Associated Problem(s): Abscess Kevan La is a 49 y.o. male with refractory hidradenitis supprativa (HS) not responding to povorcitinib (RCT candidate), apremilast, isotretinoin, adalimumab, infliximab, moxifloxacin/metronidazole, minocyclin, clindamycin, rifampin, augmentin and doxycycline. He came to [facility] with severe HS and associated deep seated tissue infection. He had fatigue, malaise, worsening leukocytosis and pain. CT AP done showed worsening infection and tissue plane crossing compared to CT done in August. The left gluteus randell muscle is enlarged, heterogeneously enhancing with the serpiginous fluid pockets consistent with phlegmon/abscess. This measures up to 9.2 x 5.7 cm in transaxial dimension by at least 13.2 cm longitudinally. Started on IV vancomycin and Zosyn. There is risk of muscle necrosis, spreading to deeper tissue plane and sepsis. Acute care surgery took patient for incision and drainage of his L thigh on 10/13/2024. Dermatology has been consulted and are following. Appreciate recommendations. Patient with arterial bleed from I&D site on 10/15. Addressed with stitch from general surgery. Patient has remained stable. Continued on IV vanc and zosyn at this time. Tissue culture taken 10/13 demonstrates rare mixed anaerobic bacteria, rare mixed gram (+) and gram (-) bacteria; no organisms seen. Patient's blood culture (taken 10/10) resulted with Slackia exigua on 10/16. Formal ID consult placed for further recommendations. Updates 10/19: -Blood culture 10/10 with slackia exigua in addition to other prior culture taken on 10/10 with staph hominis - Blood cultures taken 10/13 remain NGTD - Tissue culture 10/13 with rare mixed anaerobic bacteria, rare mixed gram (+) and gram (-) bacteria; no organisms seen - ID consults recommend continuing vanc; de-escalate zosyn to unasyn (10/19) - Ordered midline placement #Gluteal abscess s/p I&D 10/13 #Deep tissue infection #Refractory hidradenitis suppurativa :: On vanc and unasyn (zosyn stopped and unasyn started on 10/19) --> can broaden to meropenem if patient's WBC continue to uptrend / he becomes HDUS :: CT scan finding warrants drainage / debridement and tissue sample extraction for culture and sensitivity - s/p incision and drainage on 10/13; pending tissue cultures --> Wet to dry dressing BID per surgery --> Clindamycin around wound area BID :: Prior blood cultures taken on 10/10 --> one tube with Gram positive cocci, pairs and chains --> resulted 10/16 with slackia exigua --> one tube with Staph hominis identified :: Blood cultures taken 10/13/2024 NGTD :: ID consult placed. 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 - assisted NSAID use for HS, most recently was on home ibuprofen - Hold home ibuprofen - UA unremarkable - CT A/P no hydronephrosis or renal abnormality - Avoid nephrotoxic drug, hypotension, sepsis, dehydration - Continuing to endorse oral hydration Fluid: PRN Electrolyte: PRN Diet: regular DVT prophylaxis: SCD, UFH Code status: FULL CODE NOK: Omkar La (brother, ) The patient's goals for the shift include patient will remain safe and stable this shift The clinical goals for the shift include Patient will verbalize acceptable/comfortable level of pain less than a 5 Patient remained safe and stable this shift. Remained free of pain and discomfort with ordered pain meds Associated Problem(s): Abscess Kevan La is a 49 y.o. male with refractory hidradenitis supprativa (HS) not responding to povorcitinib (RCT candidate), apremilast, isotretinoin, adalimumab, infliximab, moxifloxacin/metronidazole, minocyclin, clindamycin, rifampin, augmentin and doxycycline. He came to [facility] with severe HS and associated deep seated tissue infection. He had fatigue, malaise, worsening leukocytosis and pain. CT AP done showed worsening infection and tissue plane crossing compared to CT done in August. The left gluteus randell muscle is enlarged, heterogeneously enhancing with the serpiginous fluid pockets consistent with phlegmon/abscess. This measures up to 9.2 x 5.7 cm in transaxial dimension by at least 13.2 cm longitudinally. Started on IV vancomycin and Zosyn. There is risk of muscle necrosis, spreading to deeper tissue plane and sepsis. Acute care surgery took patient for incision and drainage of his L thigh on 10/13/2024. Dermatology has been consulted and are following. Appreciate recommendations. Patient with arterial bleed from I&D site on 10/15. Addressed with stitch from general surgery. Patient has remained stable. Continued on IV vanc and zosyn at this time. Tissue culture taken 10/13 demonstrates rare mixed anaerobic bacteria, rare mixed gram (+) and gram (-) bacteria; no organisms seen. Patient's blood culture (taken 10/10) resulted with Slackia exigua on 10/16. Formal ID consult placed for further recommendations. Updates 10/18: -Blood culture 10/10 with slackia exigua in addition to other prior culture taken on 10/10 with staph hominis - Blood cultures taken 10/13 remain NGTD - Tissue culture 10/13 with rare mixed anaerobic bacteria, rare mixed gram (+) and gram (-) bacteria; no organisms seen - ID consults recommend continuing vanc and zosyn at this time #Gluteal abscess s/p I&D 10/13 #Deep tissue infection #Refractory hidradenitis suppurativa :: C/W vancomycin and Zosyn at this time pending data from deep tissue culture --> can broaden to meropenem if patient's WBC continue to uptrend / he becomes HDUS :: CT scan finding warrants drainage / debridement and tissue sample extraction for culture and sensitivity - s/p incision and drainage on 10/13; pending tissue cultures --> Wet to dry dressing BID per surgery --> Clindamycin around wound area BID :: Prior blood cultures taken on 10/10 --> one tube with Gram positive cocci, pairs and chains --> resulted 10/16 with slackia exigua --> one tube with Staph hominis identified :: Blood cultures taken 10/13/2024 NGTD :: ID consult placed :: Tissue culture 10/13 with rare mixed anaerobic bacteria, rare mixed gram (+) and gram (-) bacteria; no organisms seen Plan: - IV vanc/zosyn per ID recommendations - Tylenol scheduled, oxycodone, dilaudid PRN for pain - Hold povorcitinib, last dose of povorcitinib 10/10 - Hold home oral iron - Keep on nicotine patch and PRN nicotine #Analgesic Nephropathy - Cr 1.69 on admission - assisted NSAID use for HS, most recently was on home ibuprofen - Hold home ibuprofen - UA unremarkable - CT A/P no hydronephrosis or renal abnormality - Avoid nephrotoxic drug, hypotension, sepsis, dehydration - Continuing to endorse oral hydration Fluid: PRN Electrolyte: PRN Diet: regular DVT prophylaxis: SCD, UFH Code status: FULL CODE NOK: Omkar La (brother, ) The patient's goals for the shift include patient will remain safe and stable this shift The clinical goals for the shift include Patient will verbalize acceptable/comfortable level of pain less than a 5 Problem: Pain - Adult Goal: Verbalizes/displays adequate comfort level or baseline comfort level Outcome: Progressing Problem: Safety - Adult Goal: Free from fall injury Outcome: Progressing Problem: Discharge Planning Goal: Discharge to home or other facility with appropriate resources Outcome: Progressing Problem: Chronic Conditions and Co-morbidities Goal: Patient's chronic conditions and co-morbidity symptoms are monitored and maintained or improved Outcome: Progressing Problem: Nutrition Goal: Nutrient intake appropriate for maintaining nutritional needs Outcome: Progressing Problem: Skin Goal: Decreased wound size/increased tissue granulation at next dressing change Outcome: Progressing Goal: Participates in plan/prevention/treatment measures Outcome: Progressing Goal: Prevent/manage excess moisture Outcome: Progressing Goal: Prevent/minimize sheer/friction injuries Outcome: Progressing Goal: Promote/optimize nutrition Outcome: Progressing Goal: Promote skin healing Outcome: Progressing Problem: Pain Goal: Takes deep breaths with improved pain control throughout the shift Outcome: Progressing Goal: Turns in bed with improved pain control throughout the shift Outcome: Progressing Goal: Walks with improved pain control throughout the shift Outcome: Progressing Goal: Performs ADL's with improved pain control throughout shift Outcome: Progressing Goal: Participates in PT with improved pain control throughout the shift Outcome: Progressing Goal: Free from opioid side effects throughout the shift Outcome: Progressing Goal: Free from acute confusion related to pain meds throughout the shift Outcome: Progressing Problem: Fall/Injury Goal: Not fall by end of shift Outcome: Progressing Goal: Be free from injury by end of the shift Outcome: Progressing Goal: Verbalize understanding of personal risk factors for fall in the hospital Outcome: Progressing Goal: Verbalize understanding of risk factor reduction measures to prevent injury from fall in the home Outcome: Progressing Goal: Pace activities to prevent fatigue by end of the shift Outcome: Progressing Associated Problem(s): Abscess Kevan La is a 49 y.o. male with refractory hidradenitis supprativa (HS) not responding to povorcitinib (RCT candidate), apremilast, isotretinoin, adalimumab, infliximab, moxifloxacin/metronidazole, minocyclin, clindamycin, rifampin, augmentin and doxycycline. He came to [facility] with severe HS and associated deep seated tissue infection. He had fatigue, malaise, worsening leukocytosis and pain. CT AP done showed worsening infection and tissue plane crossing compared to CT done in August. The left gluteus randell muscle is enlarged, heterogeneously enhancing with the serpiginous fluid pockets consistent with phlegmon/abscess. This measures up to 9.2 x 5.7 cm in transaxial dimension by at least 13.2 cm longitudinally. Started on IV vancomycin and Zosyn. There is risk of muscle necrosis, spreading to deeper tissue plane and sepsis. Acute care surgery took patient for incision and drainage of his L thigh on 10/13/2024. Dermatology has been consulted and are following. Appreciate recommendations. Patient with arterial bleed from I&D site on 10/15. Addressed with stitch from general surgery. Patient has remained stable. Continued on IV vanc and zosyn at this time. Tissue culture taken 10/13 demonstrates rare mixed anaerobic bacteria, rare mixed gram (+) and gram (-) bacteria; no organisms seen. Patient's blood culture (taken 10/10) resulted with Mylesia dhavala on 10/16. Formal ID consult placed for further recommendations. Updates 10/17: -Blood culture 10/10 with slackia exmohindera in addition to other prior culture taken on 10/10 with staph hominis - Blood cultures taken 10/13 remain NGTD - Tissue culture 10/13 with rare mixed anaerobic bacteria, rare mixed gram (+) and gram (-) bacteria; no organisms seen #Gluteal abscess s/p I&D 10/13 #Deep tissue infection #Refractory hidradenitis suppurativa :: C/W vancomycin and Zosyn at this time pending data from deep tissue culture --> can broaden to meropenem if patient's WBC continue to uptrend / he becomes HDUS :: CT scan finding warrants drainage / debridement and tissue sample extraction for culture and sensitivity - s/p incision and drainage on 10/13; pending tissue cultures --> Wet to dry dressing BID per surgery --> Clindamycin around wound area BID :: Prior blood cultures taken on 10/10 --> one tube with Gram positive cocci, pairs and chains --> resulted 10/16 with slackia exmohindera --> one tube with Staph hominis identified :: Blood cultures taken 10/13/2024 NGTD :: ID consult placed :: Tissue culture 10/13 with rare mixed anaerobic bacteria, rare mixed gram (+) and gram (-) bacteria; no organisms seen Plan: - IV vanc/zosyn pending ID recommendations - Tylenol scheduled, oxycodone, dilaudid PRN for pain - Hold povorcitinib, last dose of povorcitinib 10/10 - Hold home oral iron - Keep on nicotine patch and PRN nicotine #Analgesic Nephropathy - Cr 1.69 on admission - 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 Surgery came and did pt dressing this am to left buttocks. Pt medicated with Dialudid for pain 04/27. Problem: Pain - Adult Goal: Verbalizes/displays adequate comfort level or baseline comfort level Outcome: Progressing Problem: Safety - Adult Goal: Free from fall injury Outcome: Progressing Problem: Discharge Planning Goal: Discharge to home or other facility with appropriate resources Outcome: Progressing Problem: Chronic Conditions and Co-morbidities Goal: Patient's chronic conditions and co-morbidity symptoms are monitored and maintained or improved Outcome: Progressing Problem: Nutrition Goal: Nutrient intake appropriate for maintaining nutritional needs Outcome: Progressing The patient's goals for the shift include patient will remain safe and stable this shift The clinical goals for the shift include no injuries, no falls hemodynamically stable Over the shift, the patient did notmake progress toward the following Associated Problem(s): Abscess Kevan La is a 49 y.o. male with refractory hidradenitis supprativa (HS) not responding to povorcitinib (RCT candidate), apremilast, isotretinoin, adalimumab, infliximab, moxifloxacin/metronidazole, minocyclin, clindamycin, rifampin, augmentin and doxycycline. He came to [facility] with severe HS and associated deep seated tissue infection. He had fatigue, malaise, worsening leukocytosis and pain. CT AP done showed worsening infection and tissue plane crossing compared to CT done in August. The left gluteus randell muscle is enlarged, heterogeneously enhancing with the serpiginous fluid pockets consistent with phlegmon/abscess. This measures up to 9.2 x 5.7 cm in transaxial dimension by at least 13.2 cm longitudinally. Started on IV vancomycin and Zosyn. There is risk of muscle necrosis, spreading to deeper tissue plane and sepsis. Acute care surgery took patient for incision and drainage of his L thigh on 10/13/2024. Dermatology has been consulted and are following. Appreciate recommendations. Patient with arterial bleed from I&D site on 10/15. Addressed with stitch from general surgery. Updates 10/16: - Follow-up Intra-Op cultures #Gluteal abscess s/p I&D 10/13 #Deep tissue infection #Refractory hidradenitis suppurativa :: C/W vancomycin and Zosyn at this time pending data from deep tissue culture --> can broaden to meropenem if patient's WBC continue to uptrend / he becomes HDUS :: CT scan finding warrants drainage / debridement and tissue sample extraction for culture and sensitivity - s/p incision and drainage on 10/13; pending tissue cultures --> Wet to dry dressing BID per surgery --> Clindamycin around wound area BID :: Prior blood cultures taken on 10/10 resulted on 10/13: --> one tube with Gram positive cocci, pairs and chains --> one tube with Staph hominis identified :: Blood cultures taken 10/13/2024 no growth at 3 days x2 Plan: - Tylenol scheduled, oxycodone, dilaudid PRN for pain - Hold povorcitinib, last dose of povorcitinib 10/10 - Hold home oral iron - Keep on nicotine patch and PRN nicotine - Follow-up Intra-Op cultures - Elevated wbc likely reactive iso bacteremia from I&D will trend and if still trending up will switch Zosyn to Meropenem; WBC 14.4 #Analgesic Nephropathy - Cr 1.69 on admission - assisted NSAID use for HS, most recently was on home ibuprofen - Hold home ibuprofen - UA unremarkable - CT A/P no hydronephrosis or renal abnormality - Avoid nephrotoxic drug, hypotension, sepsis, dehydration - Continuing to endorse oral hydration Fluid: PRN Electrolyte: PRN Diet: regular DVT prophylaxis: SCD, UFH Code status: FULL CODE NOK: Omkar La (brother, ) Called by nurse to evaluate patient for bleeding from L gluteal wound. At bedside, VSS and patient was having some general weakness. No lightheadedness. Warm and well perfused on exam with alma blood coming out of wound. Changed dressing and and applied pressure for ~20 min with ongoing bleeding. Called general surgery to evaluate patient, and they came to bedside and were able to control bleeding with a single stitch. Ordered CBC to check Hgb, T&S in case transfusion is needed. Rosa Haider [id number] Acute Care Surgery Clinical Update 05:10, 10/16/2024 Re-engaged by medicine team for bleeding gluteal wound. Patient is POD 3 s/p I&D of L gluteal/thigh abscess; evaluated at bedside with senior resident, Dr. Hicks. Patient in NAD, laying on side with significant amount of bright red blood covering R glute and RLE. Single arterial bleed identified, hemostasis achieved with single 3-0 Prolene stitch. Mild amount of oozing, Surgicel applied to wound bed. Wound re-packed with WTD kerlix and ABD. Agree with T&S and CBC. Fiorella Cabrera MD PGY1 Acute Care Surgery Pager [phone] The patient's goals for the shift include patient will remain safe and stable this shift The clinical goals for the shift include patient will remain free from injury during shift Patient remains free from injury during shift. He was up with PT to bathroom. He has intermittent pain improved by pain medication. He ate food at bedside. Dressing changed today. Associated Problem(s): Abscess Kevan La is a 49 y.o. male with refractory hidradenitis supprativa (HS) not responding to povorcitinib (RCT candidate), apremilast, isotretinoin, adalimumab, infliximab, moxifloxacin/metronidazole, minocyclin, clindamycin, rifampin, augmentin and doxycycline. He came to [facility] with severe HS and associated deep seated tissue infection. He had fatigue, malaise, worsening leukocytosis and pain. CT AP done showed worsening infection and tissue plane crossing compared to CT done in August. The left gluteus randell muscle is enlarged, heterogeneously enhancing with the serpiginous fluid pockets consistent with phlegmon/abscess. This measures up to 9.2 x 5.7 cm in transaxial dimension by at least 13.2 cm longitudinally. Started on IV vancomycin and Zosyn. There is risk of muscle necrosis, spreading to deeper tissue plane and sepsis. Acute care surgery took patient for incision and drainage of his L thigh on 10/13/2024. Dermatology has been consulted and are following. Appreciate recommendations. Updates 10/15: - Pain regimen adjusted: --> oxy 5mg q4h PRN moderate pain --> oxy 10mg q6h PRN severe pain --> IV dilaudid 0.4mg q4h PRN breakthrough pain - Started oral hydration solution - Follow-up Intra-Op cultures #Gluteal abscess s/p I&D 10/13 #Deep tissue infection #Refractory hidradenitis suppurativa :: C/W vancomycin and Zosyn at this time pending data from deep tissue culture --> can broaden to meropenem if patient's WBC continue to uptrend / he becomes HDUS :: CT scan finding warrants drainage / debridement and tissue sample extraction for culture and sensitivity - s/p incision and drainage on 10/13; pending tissue cultures --> Wet to dry dressing BID per surgery --> Clindamycin around wound area BID :: Prior blood cultures taken on 10/10 resulted on 10/13: --> one tube with Gram positive cocci, pairs and chains --> one tube with Staph hominis identified :: Blood cultures taken 10/13/2024 no growth at 2 days x2 :: Patient with elevated lactate overnight; improved s/p 500cc bolus; patient received another 400cc of fluid 10/14 am; lactate improved to 1.2 Plan: - Tylenol scheduled, oxycodone, dilaudid PRN for pain - Hold povorcitinib, last dose of povorcitinib 10/10 - Hold home oral iron - Keep on nicotine patch and PRN nicotine - Follow-up Intra-Op cultures - Elevated wbc likely reactive iso bacteremia from I&D will trend and if still trending up will switch Zosyn to Meropenem; WBC currently downtrending to 12.9 #Analgesic Nephropathy - Cr 1.69 on admission - assisted NSAID use for HS, most recently was on home ibuprofen - Hold home ibuprofen - UA unremarkable - CT A/P no hydronephrosis or renal abnormality - Avoid nephrotoxic drug, hypotension, sepsis, dehydration Fluid: PRN Electrolyte: PRN Diet: regular DVT prophylaxis: SCD, UFH Code status: FULL CODE NOK: Omkar La (brother, ) The patient's goals for the shift include patient will remain safe and stable this shift The clinical goals for the shift include Patient will remain safe and free from any falls/injuries overnight Patient got up to use restroom this morning and his wound began to bleed which was uncontrollable, called team and they came to assess and stitched/redressed wound. Vitals remained stable and labs were send. Patient given pain medication and is resting comfortably Problem: Pain - Adult Goal: Verbalizes/displays adequate comfort level or baseline comfort level Outcome: Progressing Problem: Safety - Adult Goal: Free from fall injury Outcome: Progressing Problem: Discharge Planning Goal: Discharge to home or other facility with appropriate resources Outcome: Progressing Problem: Chronic Conditions and Co-morbidities Goal: Patient's chronic conditions and co-morbidity symptoms are monitored and maintained or improved Outcome: Progressing Problem: Nutrition Goal: Nutrient intake appropriate for maintaining nutritional needs Outcome: Progressing Problem: Skin Goal: Decreased wound size/increased tissue granulation at next dressing change Outcome: Progressing Goal: Participates in plan/prevention/treatment measures Outcome: Progressing Goal: Prevent/manage excess moisture Outcome: Progressing Goal: Prevent/minimize sheer/friction injuries Outcome: Progressing Goal: Promote/optimize nutrition Outcome: Progressing Goal: Promote skin healing Outcome: Progressing Problem: Pain Goal: Takes deep breaths with improved pain control throughout the shift Outcome: Progressing Goal: Turns in bed with improved pain control throughout the shift Outcome: Progressing Goal: Walks with improved pain control throughout the shift Outcome: Progressing Goal: Performs ADL's with improved pain control throughout shift Outcome: Progressing Goal: Participates in PT with improved pain control throughout the shift Outcome: Progressing Goal: Free from opioid side effects throughout the shift Outcome: Progressing Goal: Free from acute confusion related to pain meds throughout the shift Outcome: Progressing Problem: Fall/Injury Goal: Not fall by end of shift Outcome: Progressing Goal: Be free from injury by end of the shift Outcome: Progressing Goal: Verbalize understanding of personal risk factors for fall in the hospital Outcome: Progressing Goal: Verbalize understanding of risk factor reduction measures to prevent injury from fall in the home Outcome: Progressing Goal: Pace activities to prevent fatigue by end of the shift Outcome: Progressing The patient's goals for the shift include patient will remain safe and stable this shift The clinical goals for the shift include Patient will have decreased drainage from wound during the shift Associated Problem(s): Abscess Kevan La is a 49 y.o. male with refractory hidradenitis supprativa (HS) not responding to povorcitinib (RCT candidate), apremilast, isotretinoin, adalimumab, infliximab, moxifloxacin/metronidazole, minocyclin, clindamycin, rifampin, augmentin and doxycycline. He came to [facility] with severe HS and associated deep seated tissue infection. He had fatigue, malaise, worsening leukocytosis and pain. CT AP done showed worsening infection and tissue plane crossing compared to CT done in August. The left gluteus randell muscle is enlarged, heterogeneously enhancing with the serpiginous fluid pockets consistent with phlegmon/abscess. This measures up to 9.2 x 5.7 cm in transaxial dimension by at least 13.2 cm longitudinally. Started on IV vancomycin and Zosyn. There is risk of muscle necrosis, spreading to deeper tissue plane and sepsis. Acute care surgery took patient for incision and drainage of his L thigh on 10/13/2024. Dermatology has been consulted and are following. Appreciate recommendations. Updates 10/14: - Patient went to the OR 10/13 for incision and drainage upon arriving to the floor patient became tachycardic to the 140s blood pressures -140 systolic with no hypoxia no fever. Patient endorsed chills and denied any chest pain, nausea ,vomiting - At the OR a significant amount of pus was drained however with very little blood about 20 cc of blood. - Patient was given IV fluids a liter NS bolus on the floor, labs done CBC, CMP lactate, EKG with sinus tachycardia, blood cultures 2 sets. UA - CBC initially with elevated white count 30.1 , lactate initially 2.2 on VBG , serum lactate however 1.8 --> 10/14 cbc with improved WBC of 15; overnight lactate elevated to 2.6 --> 2.3 s/p 500cc bolus pending repeat --> C/f bacteremia from the procedure ,white count likely will trend down, blood pressures were a little soft low 90s. Pt was stable. - Continue monitoring vitals - Surgery following and wound care for twice daily dressing - Surgery with no plans for further OR procedure - Follow-up Intra-Op cultures #Gluteal abscess s/p I&D 10/13 #Deep tissue infection #Refractory hidradenitis suppurativa :: C/W vancomycin and Zosyn at this time pending data from deep tissue culture --> can broaden to meropenem if patient's WBC continue to uptrend / he becomes HDUS :: CT scan finding warrants drainage / debridement and tissue sample extraction for culture and sensitivity - s/p incision and drainage on 10/13; pending tissue cultures :: Prior blood cultures taken on 10/10 resulted on 10/13: --> one tube with Gram positive cocci, pairs and chains --> one tube with Staph hominis identified :: Blood cultures taken 10/13/2024 no growth at 1 day x2 :: Patient with elevated lactate overnight; improved s/p 500cc bolus; patient received another 400cc of fluid over 4 hours 10/14 am with plan for repeat lactate Plan: - Tylenol scheduled, oxycodone, dilaudid PRN for pain - Hold povorcitinib, last dose of povorcitinib 10/10 - Hold home oral iron - Keep on nicotine patch and PRN nicotine - Follow-up Intra-Op cultures - Elevated wbc likely reactive iso bacteremia from I&D will trend and if still trending up will switch Zosyn to Meropenem; WBC currently downtrending to 15 #Analgesic Nephropathy - Cr 1.69 on admission (1.44 on 09/13/2024) - 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, most recently was on home ibuprofen - Hold home ibuprofen - UA unremarkable - CT A/P no hydronephrosis or renal abnormality - Avoid nephrotoxic drug, hypotension, sepsis, dehydration Fluid: PRN Electrolyte: PRN Diet: regular DVT prophylaxis: SCD, UFH Code status: FULL CODE NOK: Omkar La (brother, ) The patient's goals for the shift include patient will remain safe and stable this shift The clinical goals for the shift include patient will be HDS this shift Problem: Pain - Adult Goal: Verbalizes/displays adequate comfort level or baseline comfort level Outcome: Progressing Problem: Safety - Adult Goal: Free from fall injury Outcome: Progressing Problem: Discharge Planning Goal: Discharge to home or other facility with appropriate resources Outcome: Progressing Problem: Chronic Conditions and Co-morbidities Goal: Patient's chronic conditions and co-morbidity symptoms are monitored and maintained or improved Outcome: Progressing Problem: Nutrition Goal: Nutrient intake appropriate for maintaining nutritional needs Outcome: Progressing Problem: Skin Goal: Decreased wound size/increased tissue granulation at next dressing change Outcome: Progressing Flowsheets (Taken 10/14/2024538) Decreased wound size/increased tissue granulation at next dressing change: Promote sleep for wound healing Protective dressings over bony prominences Goal: Participates in plan/prevention/treatment measures Outcome: Progressing Flowsheets (Taken 10/14/2024538) Participates in plan/prevention/treatment measures: Discuss with provider PT/OT consult Elevate heels Increase activity/out of bed for meals Goal: Prevent/manage excess moisture Outcome: Progressing Flowsheets (Taken 10/14/2024538) Prevent/manage excess moisture: Moisturize dry skin Monitor for/manage infection if present Follow provider orders for dressing changes Goal: Prevent/minimize sheer/friction injuries Outcome: Progressing Flowsheets (Taken 10/14/2024538) Prevent/minimize sheer/friction injuries: Increase activity/out of bed for meals Goal: Promote/optimize nutrition Outcome: Progressing Flowsheets (Taken 10/14/2024538) Promote/optimize nutrition: Monitor/record intake including meals Consume > 50% meals/supplements Offer water/supplements/favorite foods Goal: Promote skin healing Outcome: Progressing Flowsheets (Taken 10/14/2024538) Promote skin healing: Protective dressings over bony prominences Turn/reposition every 2 hours/use positioning/transfer devices Problem: Pain Goal: Takes deep breaths with improved pain control throughout the shift Outcome: Progressing Goal: Turns in bed with improved pain control throughout the shift Outcome: Progressing Goal: Walks with improved pain control throughout the shift Outcome: Progressing Goal: Performs ADL's with improved pain control throughout shift Outcome: Progressing Goal: Participates in PT with improved pain control throughout the shift Outcome: Progressing Goal: Free from opioid side effects throughout the shift Outcome: Progressing Goal: Free from acute confusion related to pain meds throughout the shift Outcome: Progressing Problem: Fall/Injury Goal: Not fall by end of shift Outcome: Progressing Goal: Be free from injury by end of the shift Outcome: Progressing Goal: Verbalize understanding of personal risk factors for fall in the hospital Outcome: Progressing Goal: Verbalize understanding of risk factor reduction measures to prevent injury from fall in the home Outcome: Progressing Goal: Pace activities to prevent fatigue by end of the shift Outcome: Progressing Associated Problem(s): Abscess Kevan La is a 49 y.o. male with refractory hidradenitis supprativa (HS) not responding to povorcitinib (RCT candidate), apremilast, isotretinoin, adalimumab, infliximab, moxifloxacin/metronidazole, minocyclin, clindamycin, rifampin, augmentin and doxycycline. He came to [facility] ED with severe HS and associated deep seated tissue infection. He had fatigue, malaise, worsening leukocytosis and pain. CT AP done showed worsening infection and tissue plane crossing compared to CT done in August. The left gluteus randell muscle is enlarged, heterogeneously enhancing with the serpiginous fluid pockets consistent with phlegmon/abscess. This measures up to 9.2 x 5.7 cm in transaxial dimension by at least 13.2 cm longitudinally. Started on IV vancomycin and Zosyn. There is risk of muscle necrosis, spreading to deeper tissue plane and sepsis. Acute care surgery consulted overnight - but they signed off - again re consulted this morning due to severity and also need for drainage / debridement and tissue sample for diagnosis of microbe not responding to antibiotics- ACS said they will re assess and intervene. Dermatology consulted. Patient is being monitored vigilantly. Update10/13 Patient went to the OR 10/12 for incision and drainage upon arriving to the floor patient became tachycardic to the 140s blood pressures -140 systolic with no hypoxia no fever. Patient complains of having chills and denied any chest pain, nausea ,vomiting Palpitations, lightheadedness. At the OR a significant amount of pus was drained however with very little blood about 20 cc of blood. Patient was given IV fluids a liter NS bolus on the floor, labs done CBC, CMP lactate, EKG with sinus tachycardia, blood cultures 2 sets. UA CBC with elevated white count 30.1 , lactate initially 2.2 on VBG , serum lactate however 1.8. Concerns that likely patient may have had bacteremia from the procedure ,white count likely will trend down, blood pressures were a little soft low 90s. Pt was stable. Plan is to start patients on meropenem and discontinue Zosyn, if white count still trending up and patient hemodynamically unstable -Continue monitoring vitals -Surgery following and wound care for twice daily dressing -Surgery with no plans for further OR procedure - follow-up Intra-Op cultures #Gluteal abscess s/p I$D 10/13 #Deep tissue infection #Refractory hidradenitis suppurativa - C/W vancomycin and Zosyn - Can't rely on wound culture, need data from deep tissue culture - CT scan finding warrants drainage / debridement and tissue sample extraction for culture and sensitivity - Tylenol scheduled, oxycodone, dilaudid PRN for pain - Hold povorcitinib, last dose of povorcitinib 10/10 - Hold home oral iron - Keep on nicotine patch and PRN nicotine -F follow-up IntraOp cultures -elevated wbc likely reactive iso bacteremia from I&D will trend and if still trending up will switch Zosyn to Meropenem -bld c/s 10/13-Staph hominis #Analgesic Nephropathy - Cr 1.69 on admission (1.48 on 09/12/2024) - 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 year old male POD 0 from left thigh incision and drainage. Patient denies any fevers, chills, nausea, vomiting, chest pain or shortness of breath. Patient endorses pain is well controlled with current medications. Objective: BP (!) 89/48 Pulse 67 Temp 36.3 C (97.3 F) Resp 16 Ht 2.007 m (6' 7") Wt 101 kg (222 lb) SpO2 98% BMI 25.01 kg/m Constitutional: NAD, A&Ox3 Head/Neck: NCAT Eyes: Anicteric Cardiovascular: Regular rate and rhythm per peripheral palpation Respiratory: Breathing comfortably on RA with symmetric chest rise Abdominal: Soft, non tender, non-distended without rebound or guarding : Deferred Ext: MAEx4. Left lateral thigh wound C/D/I with Kerlix packing exchanged at bedside and appropriate hemostasis visualized. Continues to have purulent discharge from wound and surrounding tracts Psych: Appropriate mood and affect Assessment/Plan: Kevan La is a 49 y.o. year old male POD 0 from left thigh I&D. Recs: -Patient with continued purulent discharge secondary to left thigh abscess/hidradenitis -Recommend continuation of antibiotics given continued purulent discharge; appreciate ID eval for duration -Consider dermatology consultation for suppressive therapy given severe hidradenitis seen on exam -Patient likely would not benefit from additional debridements at this time due to extensive nature of disease and unlikelihood of healing more significant wound that would be required for further excision -Continue BID wet to dry dressings to left thigh -Please call with any further questions or concerns Thierno Chavis MD PGY-2 General Surgery ACS [id number] Rapid Response Nurse Note: RADAR alert: 6 Pager time: 112 Arrival time: 112 Event end time: 1156 Location: 2075 [] Triage by phone or secure messaging Rapid response initiated by: [] Rapid response RN [] Family [] Nursing Integrated Marketing Manager [] Physician [x] RADAR auto page [] Sepsis auto-page [] RN [] RT [] DIVISION OPERATIONS MANAGER/PA [] Other: Primary reason for call: [] BAT [] New CPAP/BiPAP [] Bleeding [] Change in mental status [] Chest pain [] Code blue [] FiO2 >/= 50% [] HR </= 40 bpm [] HR >/= 130 bpm [] Hyperglycemia [] Hypoglycemia [x] RADAR [] RR </= 8 bpm [] RR >/= 30 bpm [] SBP </= 90 mmHg [] SpO2 < 90% [] Seizure [] Sepsis [] Shortness of breath [] Staff concern: see comments Initial VS and/or RADAR VS: T 36.5 C; HR 141; RR null; BP 141/77; SPO2 95%. Providers present at bedside (if applicable): Rapid Response RN, Primary RN, Marvel Moser Name of ICU Provider contacted (if applicable): Interventions: [] None [x] ABG/VBG [] Assist w/ICU transfer [] BAT paged [] Bag mask [] Blood [] Cardioversion [] Code Blue [] Code blue for intubation [] Code status changed [] Chest x-ray [x] EKG [x] IV fluid/bolus [] KUB x-ray [x] Labs/cultures [] Medication [] Nebulizer treatment [] NIPPV (CPAP/BiPAP) [] Oxygen [] Oral airway [] Peripheral IV [] Palliative care consult [] CT/MRI [] Sepsis protocol [] Suctioned [] Other: Outcome: [] Coded and [] Code blue for intubation [] Coded and transferred to ICU [] on division [x] Remained on division (no change) [] Remained on division + additional monitoring [] Remained in ED [] Transferred to ED [] Transferred to ICU [] Transferred to inpatient status [] Transferred for interventions (procedure) [] Transferred to ICU stepdown [] Transferred to surgery [] Transferred to telemetry [] Sepsis protocol [] STEMI protocol [] Stroke protocol [x] Bedside nurse instructed to page rapid response for any concerns or acute change in condition/VS Additional Comments: Radar auto-page received for a radar score of 6 with the above listed vital signs. Vital signs were confirmed and reviewed with primary RN. He is now s/p I & D At the bedside he complains of chills. EKG shows sinus tach with no ST changes. 1 liter NS bolus ordered. Blood cultures x2, CBC + Diff, CMP, Troponin I ordered. VB.32, 51 , 36, SvO2 53%, Lactate 2.2, HCO3 26.3 AB.37, 42, 73, SaO2 95%, Lactate 0.9, HCO3 24.3 On Vancomycin and Pip/Tazo. RN to contact Rapid Response with any future concerns or signs of clinical decompensation. INCISION AND DRAINAGE, THIGH (L) Operative Note Date: 10/10/2024 - 10/13/2024 OR Location: [facility] OR Name: Kevan La, : 1975, Age: 49 y.o., , Sex: male Diagnosis Pre-op Diagnosis * Hidradenitis suppurativa [L73.2] Post-op Diagnosis * Hidradenitis suppurativa [L73.2] Procedures INCISION AND DRAINAGE, THIGH [id number] - IN I&D DEEP ABSC BURSA/HEMATOMA THIGH/KNEE REGION Surgeons * Momo Dougherty - Primary Resident/Fellow/Other Manager Recruitment: Surgeons and Role: * Thierno Chavis MD - Resident - Assisting Staff: [employer] Sergeant: Magda Scrub Person: Mack Anesthesia Staff: Anesthesiologist: Kristy Clarke MD Information Services Manager: Chelle Singh MD Procedure Summary Anesthesia: General ASA: II Estimated Blood Loss: 20mL Intra-op Medications: Administrations occurring from 0800 to 0940 on 10/13/24: Medication Name Total Dose acetaminophen (Tylenol) tablet 975 mg Cannot be calculated cetirizine (ZyrTEC) tablet 10 mg Cannot be calculated clindamycin (Cleocin T) 1 % gel Cannot be calculated fentaNYL (Sublimaze) injection 50 mcg/mL 50 mcg HYDROmorphone (Dilaudid) injection 1 mg/mL 0.5 mg lidocaine (Xylocaine) injection 2 % 100 mg nicotine (Nicoderm CQ) 21 mg/24 hr patch 1 patch Cannot be calculated polyethylene glycol (Glycolax, Miralax) packet 17 g Cannot be calculated propofol (Diprivan) injection 10 mg/mL 150 mg rocuronium (ZeMuron) 50 mg/5 mL injection 60 mg tiZANidine (Zanaflex) tablet 2 mg Cannot be calculated Anesthesia Record Intraprocedure I/O Totals None Specimen: ID Type Source Tests Collected by Time A : LEFT THIGH ABSCESS Swab ABSCESS FUNGAL CULTURE/SMEAR, TISSUE/WOUND CULTURE/SMEAR Momo Dougherty MD 10/13/2024 0912 Date of Surgery 10/13/24 Pre-op diagnosis: Left thigh muscular abscess in setting of hidradenitis Post-op diagnosis: Left thigh muscular abscess in setting of hidradenitis Procedure: Left thigh incision and drainage Attending: Momo Dougherty MD Residents: Thierno Herrera MD Anesthesia: General EBL: 20 mL Specimens: Abscess for culture Complications: None Drains: None Findings: Pus in posterior left thigh muscles Disposition: Regular nursing floor Indication: 49 yo male with chronic left thigh/hip hidradenitis with deep abscess/myositis. Reports worsening pain in the left thigh. Is able to walk and extended and flex at the knee but some pain. On exam, numerous areas of porous drainage from the left thigh with chronic inflammatory changes and one deeper area with associated tenderness. Some pus from these sites. CT scan showed: Left gluteal skin thickening and ulceration, with phlegmon and fluid extending from the skin abnormality into the gluteus randell muscle. Large area of phlegmon/abscess within the gluteus randell as detailed above. I discussed that the deep abscess can be drained through a large and deep incision in the thigh. This should help with infection control although the wound may not heal or may take a prolonged time to heal. I discussed the procedure, risks, benefits and alternatives. All questions answered. Informed consent obtained. Procedure: The patient was brought to the operating room and placed supine on the OR table. A procedural time out was performed identifying the patient, procedure, ABX and DVT prophylaxis. General anesthesia was induced by the anesthesia team. The left leg and hip was prepped and draped in usual fashion. An additional pre-procedure time out was performed. The patient was placed in the left side up position. An incision was made with electrocautery through the deepest wound that corresponded to the area of the worst muscle abscess area. This tissue was very inflamed. This tissue was divided until the muscle layer was reached. Pus was encountered. A culture was sent. The wound was irrigated with 3L of pulsed irrigation. Hemostasis was achieved. The wound was packed with saline soaked Kerlex and covered with ABD. Pad. I was scrubbed and present for the entire operation. All sponge and needle counts were correct. I edited this note. Problem: Pain - Adult Goal: Verbalizes/displays adequate comfort level or baseline comfort level Outcome: Progressing The patient's goals for the shift include patient will remain safe and stable this shift The clinical goals for the shift include patient will be HDS this shift Over the shift, the patient did not make progress toward the following goals. ACS Clinical Update: After further conversation patient has decided to pursue surgical drainage of left sided fluid collection. Will plan for OR 10/13 pending operating room availability. Please make patient NPO @[place]. Will obtain consent in AM. D/w Dr. Ladonna Chavis MD PGY-2 Gen Surg ACS [id number] Cosigned by Momo Dougherty MD at 10/13/2024 6:53 PM EST Associated attestation - Momo Dougherty MD - 10/13/2024 6:53 PM EST I saw and examined the patient. I discussed the patient's care with the resident/BRITTNEY team. I agree with the note with the additions/clarifications below. Late entry for 10/12/24. 49 yo male with chronic left thigh/hip hidradenitis with deep abscess/myositis. Patient would like surgery to help with infection control. On exam, remains with foul smell drainage from wide spread hidradenitis of left hip and thigh. Plan for surgery tomorrow. I discussed the procedure, risks, benefits and alternatives. All questions answered. Informed consent obtained. Associated Problem(s): Abscess Kevan La is a 49 y.o. male with refractory hidradenitis supprativa (HS) not responding to povorcitinib (RCT candidate), apremilast, isotretinoin, adalimumab, infliximab, moxifloxacin/metronidazole, minocyclin, clindamycin, rifampin, augmentin and doxycycline. He came to [facility] ED with severe HS and associated deep seated tissue infection. He had fatigue, malaise, worsening leukocytosis and pain. CT AP done showed worsening infection and tissue plane crossing compared to CT done in August. The left gluteus randell muscle is enlarged, heterogeneously enhancing with the serpiginous fluid pockets consistent with phlegmon/abscess. This measures up to 9.2 x 5.7 cm in transaxial dimension by at least 13.2 cm longitudinally. Started on IV vancomycin and Zosyn. There is risk of muscle necrosis, spreading to deeper tissue plane and sepsis. Acute care surgery consulted overnight - but they signed off - again re consulted this morning due to severity and also need for drainage / debridement and tissue sample for diagnosis of microbe not responding to antibiotics- ACS said they will re assess and intervene. Dermatology consulted. Patient is being monitored vigilantly. Update 10/12 - possible incision and drainage w/surgery today -c/w Abx, wound care #Gluteal abscess #Deep tissue infection #Refractory hidradenitis suppurativa - C/W vancomycin and Zosyn - Can't rely on wound culture, need data from deep tissue culture - CT scan finding warrants drainage / debridement and tissue sample extraction for culture and sensitivity - Tylenol scheduled, oxycodone, dilaudid PRN for pain - Hold povorcitinib, last dose of povorcitinib 10/10 - Hold home oral iron - Keep on nicotine patch and PRN nicotine -possible I&d today of gluteal abscess #Analgesic Nephropathy - Cr 1.69 on admission (1.48 on 09/12/2024) - assisted NSAID use for HS, most recently was on home ibuprofen - Hold home ibuprofen - UA unremarkable - CT A/P no hydronephrosis or renal abnormality - Avoid nephrotoxic drug, hypotension, sepsis, dehydration Fluid: PRN Electrolyte: PRN Diet: regular DVT prophylaxis: SCD, UFH Code status: FULL CODE NOK: Omkar La (brother, ) The patient's goals for the shift include The clinical goals for the shift include Problem: Pain - Adult Goal: Verbalizes/displays adequate comfort level or baseline comfort level Outcome: Progressing Problem: Safety - Adult Goal: Free from fall injury Outcome: Progressing Problem: Discharge Planning Goal: Discharge to home or other facility with appropriate resources Outcome: Progressing Problem: Chronic Conditions and Co-morbidities Goal: Patient's chronic conditions and co-morbidity symptoms are monitored and maintained or improved Outcome: Progressing Problem: Nutrition Goal: Nutrient intake appropriate for maintaining nutritional needs Outcome: Progressing Problem: Nutrition Goal: Nutrient intake appropriate for maintaining nutritional needs Outcome: Progressing Problem: Skin Goal: Decreased wound size/increased tissue granulation at next dressing change Outcome: Progressing Flowsheets (Taken 10/11/20242037) Decreased wound size/increased tissue granulation at next dressing change: Promote sleep for wound healing Protective dressings over bony prominences Goal: Participates in plan/prevention/treatment measures Outcome: Progressing Flowsheets (Taken 10/11/20242037) Participates in plan/prevention/treatment measures: Discuss with provider PT/OT consult Elevate heels Increase activity/out of bed for meals Goal: Prevent/manage excess moisture Outcome: Progressing Flowsheets (Taken 10/11/20242037) Prevent/manage excess moisture: Moisturize dry skin Monitor for/manage infection if present Goal: Prevent/minimize sheer/friction injuries Outcome: Progressing Flowsheets (Taken 10/11/20242037) Prevent/minimize sheer/friction injuries: Increase activity/out of bed for meals Goal: Promote/optimize nutrition Outcome: Progressing Flowsheets (Taken 10/11/20242037) Promote/optimize nutrition: Monitor/record intake including meals Offer water/supplements/favorite foods Consume > 50% meals/supplements Goal: Promote skin healing Outcome: Progressing Flowsheets (Taken 10/11/20242037) Promote skin healing: Protective dressings over bony prominences Turn/reposition every 2 hours/use positioning/transfer devices Rotate device position/do not position patient on device Problem: Pain Goal: Takes deep breaths with improved pain control throughout the shift Outcome: Progressing Goal: Turns in bed with improved pain control throughout the shift Outcome: Progressing Goal: Walks with improved pain control throughout the shift Outcome: Progressing Goal: Performs ADL's with improved pain control throughout shift Outcome: Progressing Goal: Participates in PT with improved pain control throughout the shift Outcome: Progressing Goal: Free from opioid side effects throughout the shift Outcome: Progressing Goal: Free from acute confusion related to pain meds throughout the shift Outcome: Progressing Problem: Fall/Injury Goal: Not fall by end of shift Outcome: Progressing Goal: Be free from injury by end of the shift Outcome: Progressing Goal: Verbalize understanding of personal risk factors for fall in the hospital Outcome: Progressing Goal: Verbalize understanding of risk factor reduction measures to prevent injury from fall in the home Outcome: Progressing Goal: Pace activities to prevent fatigue by end of the shift Outcome: Progressing Kevan La is a 49 y.o. male with refractory hidradenitis supprativa (HS) not responding to povorcitinib (RCT candidate), apremilast, isotretinoin, adalimumab, infliximab, moxifloxacin/metronidazole, minocyclin, clindamycin, rifampin, augmentin and doxycycline. He came to [facility] ED with severe HS and associated deep seated tissue infection. He had fatigue, malaise, worsening leukocytosis and pain. Started on vanc/zosyn (10/10). CT AP done showed worsening infection and tissue plane crossing compared to CT done in August. The left gluteus randell muscle is enlarged, heterogeneously enhancing with the serpiginous fluid pockets consistent with phlegmon/abscess. This measures up to 9.2 x 5.7 cm in transaxial dimension by at least 13.2 cm longitudinally. Started on IV vancomycin and Zosyn. There is risk of muscle necrosis, spreading to deeper tissue plane and sepsis. Acute care surgery took patient for incision and drainage of his L thigh on 10/13/2024. Dermatology has been consulted and are following. Patient with arterial bleed from I&D site on 10/15. Addressed with stitch from general surgery. Patient has remained stable. Continued on IV vanc and zosyn at that time. Tissue culture taken 10/13 demonstrated rare mixed anaerobic bacteria, rare mixed gram (+) and gram (-) bacteria; no organisms seen. Patient's blood culture (taken 10/10) resulted with staph hominis Slackia exigua on 10/16. Formal ID consult placed for further recommendations. On Vanc and Unasyn as of 10/19. Vanc was discontinued on 10/20 and the patient will be continued on Unasyn through 10/28 based on susceptibilities per ID recommendations. PICC line placed 10/21 so patient may continue his IV Unasyn on discharge. Dermatology will ensure follow up with for clinical trial medication for HS that was stopped per derm recs on admission (HS-301 trial medication). He has a follow up appointment with dermatology on 11/12/2024. As of 10/23/2023 the patient is medically stable for discharge to SNF and continue his course of Unasyn. documented in this encounter [facility] Work Phone: 10-22-2024 History of Present illness Narrative 10/22/24 1536 Discharge Planning Expected Discharge Disposition SNF ([facility]) What day is the transport expected? 10/23/24 What time is the transport expected? 1400 Transport confirmed via [facility] ([phone]), [facility] # [phone], [address]. Medical team, pt's RN, and resource RN aware. Kevan La is a 49 y.o. male on day 11 of admission presenting with Gluteal abscess. Pt is medically ready. [facility] confirmed with pt that he is agreeable to [facility] if able to accept as they are possibly the only accepting SNF at this time with a pending Medicaid #. 1538-Per HRS, pt's pending Medicaid # is [id number]. [facility] as [facility]. 1544-[facility] confirmed 7000 completed and able to accept pt. [facility] will work on transport. Physical Therapy Physical Therapy Treatment Patient Name: Kevan La Department: [facility] 20 Room: -A Today's Date: 10/22/2024 Time Calculation Start Time: 1109 Stop Time: 1120 Time Calculation (min): 11 min Assessment/Plan PT Assessment PT Assessment Results: Decreased strength, Decreased endurance Rehab Prognosis: Good Barriers to Discharge Home: No anticipated barriers Evaluation/Treatment Tolerance: Patient tolerated treatment well Medical Staff Made Aware: Yes Strengths: Ability to acquire knowledge, Attitude of self Barriers to Participation: Support of Caregivers End of Session Communication: Bedside nurse Assessment Comment: Patient tolerated gait training this date without IV pole and demos no major LOB or unsteadiness. Remains on track for safe d/c home with no further PT needs. End of Session Patient Position: Bed, 3 rail up, Alarm off, not on at start of session PT Plan Treatment/Interventions: Gait training, Stair training, Balance training, Therapeutic exercise, Therapeutic activity PT Plan: Ongoing PT PT Frequency: 3 times per week PT Discharge Recommendations: No PT needed after discharge Equipment Recommended upon Discharge: Other (comment) (possibly cane) PT Recommended Transfer Status: Stand by assist PT - OK to Discharge: Yes (POC/goals/discharge rec intensity created) General Visit Information: PT Visit PT Received On: 10/22/24 Response to Previous Treatment: Patient with no complaints from previous session. General Family/Caregiver Present: No Prior to Session Communication: Bedside nurse Patient Position Received: Bed, 3 rail up, Alarm off, not on at start of session Preferred Learning Style: verbal General Comment: Met in bed, partial sidelying to offload wound site; pleasant and cooperative and willing to participate in tx session. Subjective Precautions: Precautions Hearing/Visual Limitations: wearing glasses, hearing WFL Medical Precautions: Fall precautions Objective Pain: Pain Assessment Pain Assessment: 0-10 0-10 (Numeric) Pain Score: 0 - No pain Cognition: Cognition Overall Cognitive Status: Within Functional Limits Arousal/Alertness: Appropriate responses to stimuli Orientation Level: Oriented X4 Coordination: Movements are Fluid and Coordinated: Yes Postural Control: Postural Control Postural Control: Within Functional Limits Static Standing Balance Static Standing-Balance Support: No upper extremity supported Static Standing-Level of Assistance: Close supervision Static Standing-Comment/Number of Minutes: no AD Dynamic Standing Balance Dynamic Standing-Balance Support: No upper extremity supported Dynamic Standing-Level of Assistance: Contact guard Dynamic Standing-Balance: Turning Dynamic Standing-Comments: no AD Activity Tolerance: Activity Tolerance Endurance: Tolerates 10 - 20 min exercise with multiple rests Treatments: Bed Mobility Bed Mobility: Yes Bed Mobility 1 Bed Mobility 1: Side lying right to sit Level of Assistance 1: Close supervision Bed Mobility 2 Bed Mobility 2: (sitting to R side lying) Level of Assistance 2: Close supervision Ambulation/Gait Training Ambulation/Gait Training Performed: Yes Ambulation/Gait Training 1 Surface 1: Level tile Device 1: IV Pole Assistance 1: Close supervision Quality of Gait 1: Antalgic, Decreased step length Comments/Distance (ft) 1: 35 ft Ambulation/Gait Training 2 Surface 2: Level tile Device 2: No device Assistance 2: Contact guard (with progression to close sup) Quality of Gait 2: Antalgic, Decreased step length Comments/Distance (ft) 2: 75 ft Transfers Transfer: Yes Transfer 1 Transfer From 1: Sit to, Stand to Transfer to 1: Stand, Sit Technique 1: Sit to stand, Stand to sit Transfer Level of Assistance 1: Close supervision Trials/Comments 1: avoids pressure on L buttocks while sitting Outcome Measures: [facility] Basic Mobility Turning from your back to your side while in a flat bed without using bedrails: A little Moving from lying on your back to sitting on the side of a flat bed without using bedrails: A little Moving to and from bed to chair (including a wheelchair): A little Standing up from a chair using your arms (e.g. wheelchair or bedside chair): A little To walk in hospital room: A little Climbing 3-5 steps with railing: A little Basic Mobility - Total Score: 18 Education Documentation Mobility Training, taught by Windy Mendoza PTA at 10/22/2024 12:19 PM. Learner: Patient Readiness: Acceptance Method: Explanation Response: Verbalizes Understanding Comment: Reviewed safety with trans and gait Education Comments No comments found. OP EDUCATION: Encounter Problems Encounter Problems (Active) Balance Patient will maintain balance to allow for safe mobility with (I). (Progressing) Start: 10/15/24 Expected End: 10/29/24 Mobility STG - Patient will ambulate with (I), LRAD-> no assistive device 200 ft x2 (Progressing) Start: 10/15/24 Expected End: 10/29/24 STG - Patient will ascend and descend four to six stairs with (S). (Progressing) Start: 10/15/24 Expected End: 10/29/24 PT Transfers STG - Patient will transfer sit to and from stand with (I). (Progressing) Start: 10/15/24 Expected End: 10/29/24 Pain - Adult Safety LTG - Patient will demonstrate safety requirements appropriate to situation/environment Start: 10/11/24 LTG - Patient will utilize safety techniques Start: 10/11/24 STG - Patient uses call light consistently to request assistance with transfers Start: 10/11/24 Cosigned by Doris Guzman PT at 10/22/2024 12:59 PM EST Kevan La is a 49 y.o. male on day 11 of admission presenting with Gluteal abscess. Subjective No acute events overnight. Patient reports pain over I&D site mainly with dressing changes. Objective Physical Exam HENT: Head: Normocephalic. Eyes: Conjunctiva/sclera: Conjunctivae normal. Cardiovascular: Rate and Rhythm: Normal rate and regular rhythm. Heart sounds: Normal heart sounds. Pulmonary: Effort: Pulmonary effort is normal. Breath sounds: Normal breath sounds. Abdominal: General: Abdomen is flat. There is no distension. Palpations: Abdomen is soft. Tenderness: There is no abdominal tenderness. Skin: General: Skin is warm and dry. Comments: Surgical site dressed; C/D/I Neurological: Mental Status: He is alert. Comments: Alert Speech intact Moving extremities equally Follows simple commands Last Recorded Vitals Blood pressure 98/57, pulse 70, temperature 36 C (96.8 F), temperature source Temporal, resp. rate 18, height 2.007 m (6' 7"), weight 101 kg (222 lb), SpO2 96%. Intake/Output last 3 Shifts: I/O last 3 completed shifts: In: 1820 (18.1 mL/kg) [P.O.:1820] Out: 3275 (32.5 mL/kg) [Urine:3275 (0.9 mL/kg/hr)] Weight: 100.7 kg Labs Lab Results Component Value Date WBC 14.0 (H) 10/22/2024 HGB 8.3 (L) 10/22/2024 HCT 26.8 (L) 10/22/2024 MCV 89 10/22/2024 PLT 556 (H) 10/22/2024 Lab Results Component Value Date GLUCOSE 111 (H) 10/22/2024 CALCIUM 10.3 10/22/2024 NA 136 10/22/2024 K 4.2 10/22/2024 CO2 26 10/22/2024 CL 100 10/22/2024 BUN 18 10/22/2024 CREATININE 1.43 (H) 10/22/2024 Lab Results Component Value Date CALCIUM 10.3 10/22/2024 PHOS 3.1 10/22/2024 Relevant Results Scheduled medications acetaminophen, 975 mg, oral, TID ampicillin-sulbactam, 3 g, intravenous, q6h calcium carbonate, 500 mg, oral, Daily cetirizine, 10 mg, oral, Daily clindamycin, , Topical, BID heparin (porcine), 5,000 Units, subcutaneous, q8h BERNADETTE lidocaine, 5 mL, infiltration, Once polyethylene glycol, 17 g, oral, Daily sennosides-docusate sodium, 1 tablet, oral, Nightly tiZANidine, 2 mg, oral, TID varenicline tartrate, 0.5 mg, oral, BID Followed by [START ON 10/26/2024] varenicline tartrate, 1 mg, oral, BID Continuous medications PRN medications PRN medications: alteplase, HYDROmorphone, oxyCODONE, oxyCODONE Assessment/Plan Assessment & Plan Wound infection Abscess Kevan La is a 49 y.o. male with refractory hidradenitis supprativa (HS) not responding to povorcitinib (RCT candidate), apremilast, isotretinoin, adalimumab, infliximab, moxifloxacin/metronidazole, minocyclin, clindamycin, rifampin, augmentin and doxycycline. He came to [facility] with severe HS and associated deep seated tissue infection. He had fatigue, malaise, worsening leukocytosis and pain. CT AP done showed worsening infection and tissue plane crossing compared to CT done in August. The left gluteus randell muscle is enlarged, heterogeneously enhancing with the serpiginous fluid pockets consistent with phlegmon/abscess. This measures up to 9.2 x 5.7 cm in transaxial dimension by at least 13.2 cm longitudinally. Started on IV vancomycin and Zosyn. There is risk of muscle necrosis, spreading to deeper tissue plane and sepsis. Acute care surgery took patient for incision and drainage of his L thigh on 10/13/2024. Dermatology has been consulted and are following. Appreciate recommendations. Patient with arterial bleed from I&D site on 10/15. Addressed with stitch from general surgery. Patient has remained stable. Continued on IV vanc and zosyn at this time. Tissue culture taken 10/13 demonstrates rare mixed anaerobic bacteria, rare mixed gram (+) and gram (-) bacteria; no organisms seen. Patient's blood culture (taken 10/10) resulted with Mylesia exmohindera on 10/16. Formal ID consult placed for further recommendations. Updates 10/22: - Continue unasyn, end 10/28 - PICC placed - Rescheduled pain regimen for optimization; oxy 10mg q4 hours and changed breakthrough dilaudid to dressing changes only --> nursing reports blood pressure decrease with dilaudid; will only give at dressing changes for breakthrough pain as this is when he has the most pain #Gluteal abscess s/p I&D 10/13 #Deep tissue infection #Refractory hidradenitis suppurativa :: On vanc and unasyn (zosyn stopped and unasyn started on 10/19) --> can broaden to meropenem if patient's WBC continue to uptrend / he becomes HDUS :: CT scan finding warrants drainage / debridement and tissue sample extraction for culture and sensitivity - s/p incision and drainage on 10/13; pending tissue cultures --> Wet to dry dressing BID per surgery --> Clindamycin around wound area BID :: Prior blood cultures taken on 10/10 --> one tube with Gram positive cocci, pairs and chains --> resulted 10/16 with slacynthiaia dhavala --> one tube with Staph hominis identified :: Blood cultures taken 10/13/2024 NGTD :: ID consult placed. Recommendations appreciated :: Tissue culture 10/13 with rare mixed anaerobic bacteria, rare mixed gram (+) and gram (-) bacteria; no organisms seen :: PICC placement ordered 10/19; done :: BLE DVT U/S: --> Right Lower Venous: No evidence of acute deep vein thrombus visualized in the right lower extremity. Additional Findings; Lymph nodes noted in groin area. --> Left Lower Venous: No evidence of acute deep vein thrombus visualized in the left lower extremity. There is a non-vascular structure with measurements of 1.5 cm x 3.8 cm noted in groin area. Additional Findings; Lymph nodes noted in groin area. 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 - assisted NSAID use for HS, most recently was on home ibuprofen - Hold home ibuprofen - UA unremarkable - CT A/P no hydronephrosis or renal abnormality - Avoid nephrotoxic drug, hypotension, sepsis, dehydration - Continuing to endorse oral hydration Fluid: PRN Electrolyte: PRN Diet: regular DVT prophylaxis: SCD, UFH Code status: FULL CODE NOK: Omkar La (brother, ) Gluteal abscess Bacteremia due to Staphylococcus Delilah Almanza MD Neurology, PGY-1 Cosigned by Fidel Clarke MD at 10/22/2024 3:41 PM EST Associated attestation - Fidel Clarke MD - 10/22/2024 3:41 PM EST I saw and evaluated the patient. I personally obtained the gomez and critical portions of the history and physical exam or was physically present for gomez and critical portions performed by the resident/fellow. I reviewed the resident/fellow's documentation and discussed the patient with the resident/fellow. I agree with the resident/fellow's medical decision making as documented in the note. Kevan La is a 49 y.o. male on day 10 of admission presenting with Gluteal abscess. Transitional Care Coordination Progress Note: Patient discussed during interdisciplinary rounds. Team members present: MIGUEL NIELSEN Plan per Medical/Surgical team: Medically Ready Payer: Pending Medicaid Status: Inpatient Discharge disposition:Pending accepting facility [facility]? Potential Barriers: Pending facility acceptance ADOD: 10/23/24 Kevan La is a 49 y.o. male on day 10 of admission presenting with Gluteal abscess. Subjective NAEO. Continues to endorse pain, worse over the last couple days. No SOB, CP. Objective Physical Exam HENT: Head: Normocephalic. Eyes: Conjunctiva/sclera: Conjunctivae normal. Cardiovascular: Rate and Rhythm: Normal rate and regular rhythm. Heart sounds: Normal heart sounds. Pulmonary: Effort: Pulmonary effort is normal. Breath sounds: Normal breath sounds. Abdominal: General: Abdomen is flat. There is no distension. Palpations: Abdomen is soft. Tenderness: There is no abdominal tenderness. Skin: General: Skin is warm and dry. Comments: Surgical site dressed; C/D/I Neurological: Mental Status: He is alert. Comments: Alert Speech intact Moving extremities equally Follows simple commands Last Recorded Vitals Blood pressure 109/61, pulse 72, temperature 36.4 C (97.5 F), temperature source Temporal, resp. rate 18, height 2.007 m (6' 7"), weight 101 kg (222 lb), SpO2 96%. Intake/Output last 3 Shifts: I/O last 3 completed shifts: In: - (0 mL/kg) Out: 850 (8.4 mL/kg) [Urine:850 (0.2 mL/kg/hr)] Weight: 100.7 kg Labs Lab Results Component Value Date WBC 12.4 (H) 10/21/2024 HGB 8.0 (L) 10/21/2024 HCT 26.0 (L) 10/21/2024 MCV 91 10/21/2024 PLT 549 (H) 10/21/2024 Lab Results Component Value Date GLUCOSE 98 10/21/2024 CALCIUM 10.0 10/21/2024 NA 139 10/21/2024 K 4.4 10/21/2024 CO2 26 10/21/2024 CL 103 10/21/2024 BUN 20 10/21/2024 CREATININE 1.55 (H) 10/21/2024 Lab Results Component Value Date CALCIUM 10.0 10/21/2024 PHOS 3.9 10/21/2024 Relevant Results Scheduled medications acetaminophen, 975 mg, oral, TID ampicillin-sulbactam, 3 g, intravenous, q6h calcium carbonate, 500 mg, oral, Daily cetirizine, 10 mg, oral, Daily clindamycin, , Topical, BID heparin (porcine), 5,000 Units, subcutaneous, q8h BERNADETTE lidocaine, 5 mL, infiltration, Once polyethylene glycol, 17 g, oral, Daily tiZANidine, 2 mg, oral, TID [START ON 10/22/2024] varenicline tartrate, 0.5 mg, oral, BID Followed by [START ON 10/26/2024] varenicline tartrate, 1 mg, oral, BID Continuous medications PRN medications PRN medications: alteplase, HYDROmorphone, oxyCODONE, oxyCODONE Assessment/Plan Assessment & Plan Wound infection Abscess Kevan La is a 49 y.o. male with refractory hidradenitis supprativa (HS) not responding to povorcitinib (RCT candidate), apremilast, isotretinoin, adalimumab, infliximab, moxifloxacin/metronidazole, minocyclin, clindamycin, rifampin, augmentin and doxycycline. He came to [facility] with severe HS and associated deep seated tissue infection. He had fatigue, malaise, worsening leukocytosis and pain. CT AP done showed worsening infection and tissue plane crossing compared to CT done in August. The left gluteus randell muscle is enlarged, heterogeneously enhancing with the serpiginous fluid pockets consistent with phlegmon/abscess. This measures up to 9.2 x 5.7 cm in transaxial dimension by at least 13.2 cm longitudinally. Started on IV vancomycin and Zosyn. There is risk of muscle necrosis, spreading to deeper tissue plane and sepsis. Acute care surgery took patient for incision and drainage of his L thigh on 10/13/2024. Dermatology has been consulted and are following. Appreciate recommendations. Patient with arterial bleed from I&D site on 10/15. Addressed with stitch from general surgery. Patient has remained stable. Continued on IV vanc and zosyn at this time. Tissue culture taken 10/13 demonstrates rare mixed anaerobic bacteria, rare mixed gram (+) and gram (-) bacteria; no organisms seen. Patient's blood culture (taken 10/10) resulted with Slackia exigua on 10/16. Formal ID consult placed for further recommendations. Updates 10/21: -continue unasyn, end 10/28 -PICC placed -BLE venous duplex performed #Gluteal abscess s/p I&D 10/13 #Deep tissue infection #Refractory hidradenitis suppurativa :: On vanc and unasyn (zosyn stopped and unasyn started on 10/19) --> can broaden to meropenem if patient's WBC continue to uptrend / he becomes HDUS :: CT scan finding warrants drainage / debridement and tissue sample extraction for culture and sensitivity - s/p incision and drainage on 10/13; pending tissue cultures --> Wet to dry dressing BID per surgery --> Clindamycin around wound area BID :: Prior blood cultures taken on 10/10 --> one tube with Gram positive cocci, pairs and chains --> resulted 10/16 with slackia exigua --> one tube with Staph hominis identified :: Blood cultures taken 10/13/2024 NGTD :: ID consult placed. Recommendations appreciated :: Tissue culture 10/13 with rare mixed anaerobic bacteria, rare mixed gram (+) and gram (-) bacteria; no organisms seen :: PICC placement ordered 10/19; done :: BLE DVT U/S: --> Right Lower Venous: No evidence of acute deep vein thrombus visualized in the right lower extremity. Additional Findings; Lymph nodes noted in groin area. --> Left Lower Venous: No evidence of acute deep vein thrombus visualized in the left lower extremity. There is a non-vascular structure with measurements of 1.5 cm x 3.8 cm noted in groin area. Additional Findings; Lymph nodes noted in groin area. 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 - assisted NSAID use for HS, most recently was on home ibuprofen - Hold home ibuprofen - UA unremarkable - CT A/P no hydronephrosis or renal abnormality - Avoid nephrotoxic drug, hypotension, sepsis, dehydration - Continuing to endorse oral hydration Fluid: PRN Electrolyte: PRN Diet: regular DVT prophylaxis: SCD, UFH Code status: FULL CODE NOK: Omkar La (brother, ) Gluteal abscess Bacteremia due to Staphylococcus Delilah Almanza MD Neurology, PGY-1 Cosigned by Delgado Renee DO at 10/21/2024 6:16 PM EST Associated attestation - Delgado Renee DO - 10/21/2024 6:16 PM EST I saw and evaluated the patient. I personally obtained the gomez and critical portions of the history and physical exam or was physically present for gomez and critical portions performed by the resident/fellow. I reviewed the resident/fellow's documentation and discussed the patient with the resident/fellow. I agree with the resident/fellow's medical decision making as documented in the note. Principal Problem: Gluteal abscess Active Problems: Hidradenitis suppurativa Wound infection Chronic renal insufficiency Bacteremia due to Staphylococcus Abscess -ctn unasyn 2 weeks end 10/28 -appreciate ACS addressing bleeding and updates. Consults reviewed -appreciate wound care -agree w pain regimen -midline -SW consult for Medicaid help -pending SNF placment for IV abx and ongoing wound care and inability to ambulate safely -US DVT I spent 35 minutes in professional medical decision making, [id number] examination and counseling, care coordination, chart review, discussions with consultants, and care planning Kevan La is a 49 y.o. male on day 9 of admission presenting with Gluteal abscess. Subjective NAEO. Continues to endorse pain, worse over the last couple days. No SOB, CP. Objective Physical Exam HENT: Head: Normocephalic. Eyes: Conjunctiva/sclera: Conjunctivae normal. Cardiovascular: Rate and Rhythm: Normal rate and regular rhythm. Heart sounds: Normal heart sounds. Pulmonary: Effort: Pulmonary effort is normal. Breath sounds: Normal breath sounds. Abdominal: General: Abdomen is flat. There is no distension. Palpations: Abdomen is soft. Tenderness: There is no abdominal tenderness. Skin: General: Skin is warm and dry. Comments: Surgical site dressed; C/D/I Neurological: Mental Status: He is alert. Comments: Alert Speech intact Moving extremities equally Follows simple commands Last Recorded Vitals Blood pressure 113/66, pulse 82, temperature 36.4 C (97.5 F), temperature source Temporal, resp. rate 18, height 2.007 m (6' 7"), weight 101 kg (222 lb), SpO2 100%. Intake/Output last 3 Shifts: I/O last 3 completed shifts: In: 1860 (18.5 mL/kg) [P.O.:960; IV Piggyback:900] Out: 3650 (36.2 mL/kg) [Urine:3650 (1 mL/kg/hr)] Weight: 100.7 kg Labs Lab Results Component Value Date WBC 16.5 (H) 10/20/2024 HGB 8.4 (L) 10/20/2024 HCT 27.2 (L) 10/20/2024 MCV 90 10/20/2024 PLT 604 (H) 10/20/2024 Lab Results Component Value Date GLUCOSE 102 (H) 10/20/2024 CALCIUM 10.4 10/20/2024 NA 141 10/20/2024 K 4.5 10/20/2024 CO2 27 10/20/2024 CL 104 10/20/2024 BUN 17 10/20/2024 CREATININE 1.39 (H) 10/20/2024 Lab Results Component Value Date CALCIUM 10.4 10/20/2024 PHOS 3.2 10/20/2024 Relevant Results Scheduled medications acetaminophen, 975 mg, oral, TID ampicillin-sulbactam, 3 g, intravenous, q6h calcium carbonate, 500 mg, oral, Daily cetirizine, 10 mg, oral, Daily clindamycin, , Topical, BID heparin (porcine), 5,000 Units, subcutaneous, q8h BERNADETTE lidocaine, 5 mL, infiltration, Once polyethylene glycol, 17 g, oral, Daily tiZANidine, 2 mg, oral, TID varenicline tartrate, 0.5 mg, oral, Daily Followed by [START ON 10/22/2024] varenicline tartrate, 0.5 mg, oral, BID Followed by [START ON 10/26/2024] varenicline tartrate, 1 mg, oral, BID Continuous medications PRN medications PRN medications: alteplase, HYDROmorphone, oxyCODONE, oxyCODONE Assessment/Plan Assessment & Plan Wound infection Abscess Kevan La is a 49 y.o. male with refractory hidradenitis supprativa (HS) not responding to povorcitinib (RCT candidate), apremilast, isotretinoin, adalimumab, infliximab, moxifloxacin/metronidazole, minocyclin, clindamycin, rifampin, augmentin and doxycycline. He came to [facility] with severe HS and associated deep seated tissue infection. He had fatigue, malaise, worsening leukocytosis and pain. CT AP done showed worsening infection and tissue plane crossing compared to CT done in August. The left gluteus randell muscle is enlarged, heterogeneously enhancing with the serpiginous fluid pockets consistent with phlegmon/abscess. This measures up to 9.2 x 5.7 cm in transaxial dimension by at least 13.2 cm longitudinally. Started on IV vancomycin and Zosyn. There is risk of muscle necrosis, spreading to deeper tissue plane and sepsis. Acute care surgery took patient for incision and drainage of his L thigh on 10/13/2024. Dermatology has been consulted and are following. Appreciate recommendations. Patient with arterial bleed from I&D site on 10/15. Addressed with stitch from general surgery. Patient has remained stable. Continued on IV vanc and zosyn at this time. Tissue culture taken 10/13 demonstrates rare mixed anaerobic bacteria, rare mixed gram (+) and gram (-) bacteria; no organisms seen. Patient's blood culture (taken 10/10) resulted with Slackia exigua on 10/16. Formal ID consult placed for further recommendations. Updates 10/20: -continue unasyn, end 10/28 -will get BL LE duplex for leg pain, limited mobility -needs PICC placed #Gluteal abscess s/p I&D 10/13 #Deep tissue infection #Refractory hidradenitis suppurativa :: On vanc and unasyn (zosyn stopped and unasyn started on 10/19) --> can broaden to meropenem if patient's WBC continue to uptrend / he becomes HDUS :: CT scan finding warrants drainage / debridement and tissue sample extraction for culture and sensitivity - s/p incision and drainage on 10/13; pending tissue cultures --> Wet to dry dressing BID per surgery --> Clindamycin around wound area BID :: Prior blood cultures taken on 10/10 --> one tube with Gram positive cocci, pairs and chains --> resulted 10/16 with slackia exigua --> one tube with Staph hominis identified :: Blood cultures taken 10/13/2024 NGTD :: ID consult placed. 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 - assisted NSAID use for HS, most recently was on home ibuprofen - Hold home ibuprofen - UA unremarkable - CT A/P no hydronephrosis or renal abnormality - Avoid nephrotoxic drug, hypotension, sepsis, dehydration - Continuing to endorse oral hydration Fluid: PRN Electrolyte: PRN Diet: regular DVT prophylaxis: SCD, UFH Code status: FULL CODE NOK: Omkar La (brother, ) Gluteal abscess Bacteremia due to Staphylococcus Frances Watts MD Cosigned by Delgado Renee DO at 10/20/2024 4:39 PM EST Associated attestation - Delgado Renee DO - 10/20/2024 4:39 PM EST I saw and evaluated the patient. I personally obtained the gomez and critical portions of the history and physical exam or was physically present for gomez and critical portions performed by the resident/fellow. I reviewed the resident/fellow's documentation and discussed the patient with the resident/fellow. I agree with the resident/fellow's medical decision making as documented in the note. Principal Problem: Gluteal abscess Active Problems: Hidradenitis suppurativa Wound infection Chronic renal insufficiency Bacteremia due to Staphylococcus Abscess -ctn unasyn 2 weeks -appreciate ACS addressing bleeding and updates. Consults reviewed -agree w pain regimen -midline -SW consult for Medicaid help -pending SNF placment for IV abx and ongoing wound care and inability to ambulate safely -US DVT I spent 35 minutes in professional medical decision making, [id number] examination and counseling, care coordination, chart review, discussions with consultants, and care planning Transitional Life Care Planner Progress Note: Contacted pt to obtain his SNF FOC. [facility] in [facility] (able to accept[facility] and [facility] (interested). [facility] will contact pt to complete a Medicaid questionnaire and awaiting [facility] liaison to review. Plan to follow up with SNFs on Monday. Also, plan to follow up with [facility] to obtain a pending Medicaid number. clinical nursing coordinator will continue to follow for discharge planning needs. Aida VELASQUEZ, RN- Transitional Life Care Planner (TCC) [phone] Vancomycin Dosing by Pharmacy- Cessation of Therapy Consult to pharmacy for vancomycin dosing has been discontinued by the prescriber, pharmacy will sign off at this time. Please call pharmacy if there are further questions or re-enter a consult if vancomycin is resumed. Maria Schneider PharmD 10/19/24 1548 Discharge Planning Who is requesting discharge planning? Provider Home or Post Acute Services Post acute facilities (Rehab/SNF/etc) Type of Post Acute Facility Services nursing home Expected Discharge Disposition SNF Per [facility] confirmed they are able to accept pt with pending Medicaid number, [facility] and [facility] are still reviewing. Update on acceptance requested from the reviewing SNF's, all SNF's were updated pt will discharge on IV Vanco every 12 hours + IV Unasyn every 6 hours with wound care BID. Pt was updated regarding the accepting SNF, and 4 reviewing SNF's, he stated he will look into these facilities and provide FOC tomorrow. Pt will need pending [place] Medicaid number and 7000 form prior to discharge. Care Transitions team will continue to follow for discharge planning needs. Lorenza Morales RN Transitional Life Care Planner (TCC) [phone] or [phone] Vancomycin Dosing by Pharmacy- FOLLOW UP Kevan La is a 49 y.o. year old male who Pharmacy has been consulted for vancomycin dosing for cellulitis, skin and soft tissue. Based on the patient's indication and renal status this patient is being dosed based on a goal AUC of 400-600. Renal function is currently stable. Current vancomycin dose: 750 mg given every 12 hours Estimated vancomycin AUC on current dose: 474 mg/L.hr Visit Vitals BP 99/62 Pulse 65 Temp 36.8 C (98.2 F) (Temporal) Resp 16 Lab Results Component Value Date CREATININE 1.72 (H) 10/18/2024 CREATININE 1.62 (H) 10/17/2024 CREATININE 1.62 (H) 10/17/2024 CREATININE 1.50 (H) 10/16/2024 Patient weight is as follows: Vitals: 10/11/24 1015 Weight: 101 kg (222 lb) Cultures: Susceptibility data for the encounter in last 14 days. Collected Specimen Info Organism Ampicillin/Sulbactam Ceftriaxone Clindamycin Meropenem Penicillin 10/13/24 Swab from ABSCESS Mixed Anaerobic Bacteria Mixed Gram-Positive and Gram-Negative Bacteria 10/11/24 Tissue/Biopsy from Other (specify in comments) Mixed Anaerobic Bacteria Mixed Gram-Positive and Gram-Negative Bacteria 10/10/24 Blood culture from Peripheral Venipuncture Marta powers S S S S S 10/10/24 Blood culture from Peripheral Venipuncture Staphylococcus hominis I/O last 3 completed shifts: In: 600 (6 mL/kg) [IV Piggyback:600] Out: 3900 (38.7 mL/kg) [Urine:3900 (1.1 mL/kg/hr)] Weight: 100.7 kg I/O during current shift: I/O this shift: In: 580 [P.O.:480; IV Piggyback:100] Out: 900 [Urine:900] Temp (24hrs), Av.6 C (97.8 F), Min:36.3 C (97.3 F), Max:36.8 C (98.2 F) Assessment/Plan Within goal AUC range. Continue current vancomycin regimen. This dosing regimen is predicted by [employer] to result in the following pharmacokinetic parameters: Loading dose: N/A Regimen: 750 mg IV every 12 hours. Start time: 14:38 on 10/19/2024 Exposure target: AUC24 (range)400-600 mg/L.hr [id number]: 447 mg/L.hr AUC24,ss: 474 mg/L.hr Probability of AUC24 > 400: 97 % Ctrough,ss: 16.5 mg/L Probability of Ctrough,ss > 20: 5 % The next level will be obtained on 10/21 at 1000. May be obtained sooner if clinically indicated. Will continue to monitor renal function daily while on vancomycin and order serum creatinine at least every 48 hours if not already ordered. Follow for continued vancomycin needs, clinical response, and signs/symptoms of toxicity. DAVINA GARRISON PharmD Kevan La is a 49 y.o. male on day 8 of admission presenting with Gluteal abscess. Subjective NAEO. Patient is laying in bed and denied any new complaints. Dressing was changed yesterday, denied increased drainage. Objective Range of Vitals (last 24 hours) Heart Rate: [68-77] Temp: [36.3 C (97.3 F)-36.8 C (98.2 F)] Resp: [16-18] BP: (94-105)/(55-62) SpO2: [97 %-98 %] Daily Weight 10/11/24 : 101 kg (222 lb) Body mass index is 25.01 kg/m . Physical Exam Patient is laying in bed, in no acute distress. Breathing comfortably on RA. L lateral thigh is dressed with an ABD which is dry, Antibiotics ampicillin-sulbactam - 3 gram/100 mL clindamycin - 1 % doxycycline - 100 mg vancomycin - 750 mg/150 mL Relevant Results Labs Results from last 72 hours Lab Units 10/18/24 0710/17/24 1206 WBC AUTO x10*3/uL 15.6* 16.7* HEMOGLOBIN g/dL 8.4* 8.5* HEMATOCRIT % 27.3* 25.1* PLATELETS AUTO x10*3/uL 605* 590* NEUTROS PCT AUTO % 71.4 75.1 LYMPHS PCT AUTO % 16.4 14.2 MONOS PCT AUTO % 8.3 7.8 EOS PCT AUTO % 2.2 1.6 Results from last 72 hours Lab Units 10/18/24 0710/17/24192510/17/24 0811 SODIUM mmol/L 139 136 138 POTASSIUM mmol/L 4.0 4.3 5.6* CHLORIDE mmol/L 101 99 103 CO2 mmol/L 27 27 25 BUN mg/dL 17 17 14 CREATININE mg/dL 1.72* 1.62* 1.62* GLUCOSE mg/dL 97 98 91 CALCIUM mg/dL 10.1 10.4 10.2 ANION GAP mmol/L 15 14 16 EGFR mL/min/1.73m*2 48* 51* 51* PHOSPHORUS mg/dL 3.2 3.8 3.7 4.1 Results from last 72 hours Lab Units 10/18/24 0710/17/24192510/17/24 0811 ALK PHOS U/L 70 -- 62 BILIRUBIN TOTAL mg/dL 0.2 -- 0.3 PROTEIN TOTAL g/dL 7.1 -- 7.3 ALT U/L 17 -- 11 AST U/L 18 -- 35 ALBUMIN g/dL 3.4 3.7 3.4 Estimated Creatinine Clearance: 67.3 mL/min (A) (by C-G formula based on SCr of 1.72 mg/dL (H)). C-Reactive Protein Date Value Ref Range Status 10/10/2024 7.72 (H) <1.00 mg/dL Final Microbiology Susceptibility data from last 14 days. Collected Specimen Info Organism Ampicillin/Sulbactam Ceftriaxone Clindamycin Meropenem Penicillin 10/13/24 Swab from ABSCESS Mixed Anaerobic Bacteria Mixed Gram-Positive and Gram-Negative Bacteria 10/11/24 Tissue/Biopsy from Other (specify in comments) Mixed Anaerobic Bacteria Mixed Gram-Positive and Gram-Negative Bacteria 10/10/24 Blood culture from Peripheral Venipuncture Slackia exigua S S S S S 10/10/24 Blood culture from Peripheral Venipuncture Staphylococcus hominis Imaging CT Pelvis: 10/10/2024: IMPRESSION: 1. Left gluteal skin thickening and ulceration, with phlegmon and fluid extending from the skin abnormality into the gluteus randell muscle. Large area of phlegmon/abscess within the gluteus randell as detailed above. 2. No evidence of osteomyelitis. Micro: 10/10: Blood Cx: Slackia Exugia in anaerobic bottle, Staph hominis in another set. 10/11: Tissue/Wound Cx: 4+ Abundant mixed gram positive and gram negative bacteria, 4+ Abundant Mixed anaerobic bacteria. 10/13: Tissue/Wound Cx: 1+ Rare Mixed Anaerobic Bacteria, 1+ Rare Mixed gram positive and gram negative bacteria. 10/13: Blood Cx: NGTD Antibiotics: Zosyn: 10/10 - p Vancomycin: 10/10 - p Assessment/Plan 49-year-old male with a history of hidradenitis suppurativa on povorcitinib trial, presenting with recurrent left gluteal wound infection, now post-I&D on 10/13 with OR cultures growing mixed aerobic and anaerobic organisms and blood cultures growing Slackia exigua (an obligate anaerobe) and Staph hominis. Given that he had a fever, leukocytosis (17.5), we would prefer to treat Slackia exigua despite its uncertain pathogenicity. Have called lab to find out if Staph hominis is methicillin S/R. Once we have that information will make a final plan. For now continue IV Vancomycin. Called micro lab today and it will most likely be finalized tomorrow or later in the day. Clinical Impression: Refractory Hidradenitis Suppurativa, L Gluteal Abscess, Slackia Exugia Bacteremia Recommendations: Continue IV Vancomycin. Continue IV amp/sulbactam Will tentatively require 2 weeks of IV amp/sulbactam for bacteremia and gluteal abscess. Can place a midline. Will monitor clinically. Plan was discussed with ID attending Dr Rodriguez. We will continue to follow the patient. Ivette Pina MD PGY5, ID Fellow. For new consults, contact pager [phone]. EPIC chat preferred. Ivette Pina MD I reviewed the resident/fellow's documentation and discussed the patient with the resident/fellow. I agree with the resident/fellow's medical decision making as documented in their note with the exception/addition of the following: His staph hominus is ox sensitive , so we can stop his vancomycin. Continue the amp/sulbactam. We plan for a 2 week total course from his I and D 10/13, so end date 10/28/24. He can complete in his SNF where getting dressing changes. ID will sign off, please call if further questions. Trudi Rodriguez MD Kevan La is a 49 y.o. male on day 8 of admission presenting with Gluteal abscess. Subjective No acute events over night. The patient reports intermittent pain at his I&D site. Denies symptoms of chest pain, SOB, abdominal pain. In no acute distress. Objective Physical Exam HENT: Head: Normocephalic. Eyes: Conjunctiva/sclera: Conjunctivae normal. Cardiovascular: Rate and Rhythm: Normal rate and regular rhythm. Heart sounds: Normal heart sounds. Pulmonary: Effort: Pulmonary effort is normal. Breath sounds: Normal breath sounds. Abdominal: General: Abdomen is flat. There is no distension. Palpations: Abdomen is soft. Tenderness: There is no abdominal tenderness. Skin: General: Skin is warm and dry. Comments: Surgical site dressed; C/D/I Neurological: Mental Status: He is alert. Comments: Alert Speech intact Moving extremities equally Follows simple commands Last Recorded Vitals Blood pressure 99/62, pulse 77, temperature 36.8 C (98.2 F), temperature source Temporal, resp. rate 16, height 2.007 m (6' 7"), weight 101 kg (222 lb), SpO2 97%. Intake/Output last 3 Shifts: I/O last 3 completed shifts: In: 1068 (10.6 mL/kg) [P.O.:818; IV Piggyback:250] Out: 2925 (29 mL/kg) [Urine:2925 (0.8 mL/kg/hr)] Weight: 100.7 kg Labs Lab Results Component Value Date WBC 15.6 (H) 10/18/2024 HGB 8.4 (L) 10/18/2024 HCT 27.3 (L) 10/18/2024 MCV 90 10/18/2024 PLT 605 (H) 10/18/2024 Lab Results Component Value Date GLUCOSE 97 10/18/2024 CALCIUM 10.1 10/18/2024 NA 139 10/18/2024 K 4.0 10/18/2024 CO2 27 10/18/2024 CL 101 10/18/2024 BUN 17 10/18/2024 CREATININE 1.72 (H) 10/18/2024 Lab Results Component Value Date CALCIUM 10.1 10/18/2024 PHOS 3.2 10/18/2024 Relevant Results Scheduled medications acetaminophen, 975 mg, oral, TID calcium carbonate, 500 mg, oral, Daily cetirizine, 10 mg, oral, Daily clindamycin, , Topical, BID heparin (porcine), 5,000 Units, subcutaneous, q8h BERNADETTE nicotine, 1 patch, transdermal, Daily piperacillin-tazobactam, 3.375 g, intravenous, q6h polyethylene glycol, 17 g, oral, Daily tiZANidine, 2 mg, oral, TID vancomycin, 750 mg, intravenous, q12h Continuous medications PRN medications PRN medications: HYDROmorphone, nicotine polacrilex, oxyCODONE, oxyCODONE, vancomycin Assessment/Plan Assessment & Plan Wound infection Abscess Kevan La is a 49 y.o. male with refractory hidradenitis supprativa (HS) not responding to povorcitinib (RCT candidate), apremilast, isotretinoin, adalimumab, infliximab, moxifloxacin/metronidazole, minocyclin, clindamycin, rifampin, augmentin and doxycycline. He came to [facility] with severe HS and associated deep seated tissue infection. He had fatigue, malaise, worsening leukocytosis and pain. CT AP done showed worsening infection and tissue plane crossing compared to CT done in August. The left gluteus randell muscle is enlarged, heterogeneously enhancing with the serpiginous fluid pockets consistent with phlegmon/abscess. This measures up to 9.2 x 5.7 cm in transaxial dimension by at least 13.2 cm longitudinally. Started on IV vancomycin and Zosyn. There is risk of muscle necrosis, spreading to deeper tissue plane and sepsis. Acute care surgery took patient for incision and drainage of his L thigh on 10/13/2024. Dermatology has been consulted and are following. Appreciate recommendations. Patient with arterial bleed from I&D site on 10/15. Addressed with stitch from general surgery. Patient has remained stable. Continued on IV vanc and zosyn at this time. Tissue culture taken 10/13 demonstrates rare mixed anaerobic bacteria, rare mixed gram (+) and gram (-) bacteria; no organisms seen. Patient's blood culture (taken 10/10) resulted with Slackia exigua on 10/16. Formal ID consult placed for further recommendations. Updates 10/19: -Blood culture 10/10 with slackia exigua in addition to other prior culture taken on 10/10 with staph hominis - Blood cultures taken 10/13 remain NGTD - Tissue culture 10/13 with rare mixed anaerobic bacteria, rare mixed gram (+) and gram (-) bacteria; no organisms seen - ID consults recommend continuing vanc; de-escalate zosyn to unasyn (10/19) - Ordered midline placement #Gluteal abscess s/p I&D 10/13 #Deep tissue infection #Refractory hidradenitis suppurativa :: On vanc and unasyn (zosyn stopped and unasyn started on 10/19) --> can broaden to meropenem if patient's WBC continue to uptrend / he becomes HDUS :: CT scan finding warrants drainage / debridement and tissue sample extraction for culture and sensitivity - s/p incision and drainage on 10/13; pending tissue cultures --> Wet to dry dressing BID per surgery --> Clindamycin around wound area BID :: Prior blood cultures taken on 10/10 --> one tube with Gram positive cocci, pairs and chains --> resulted 10/16 with slackia exigua --> one tube with Staph hominis identified :: Blood cultures taken 10/13/2024 NGTD :: ID consult placed. 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 I personally obtained the gomez and critical portions of the history and physical exam or was physically present for gomez and critical portions performed by the resident/fellow. I reviewed the resident/fellow's documentation and discussed the patient with the resident/fellow. I agree with the resident/fellow's medical decision making as documented in the note. Principal Problem: Gluteal abscess Active Problems: Hidradenitis suppurativa Wound infection Chronic renal insufficiency Bacteremia due to Staphylococcus Abscess -ctn unasyn 2 weeks -appreciate ACS addressing bleeding and updates. Consults reviewed -agree w pain regimen -midline -SW consult for Medicaid help -pending SNF placment for IV abx and ongoing wound care and inability to ambulate safely I spent 35 minutes in professional medical decision making, [id number] examination and counseling, care coordination, chart review, discussions with consultants, and care planning Kevan La is a 49 y.o. male on day 7 of admission presenting with Gluteal abscess. Subjective No acute events over night. Mr. La endorsed mild pain at his I&D site; otherwise no acute distress. Denied chest pain, SOB, and abdominal pain. Objective Physical Exam HENT: Head: Normocephalic. Eyes: Conjunctiva/sclera: Conjunctivae normal. Cardiovascular: Rate and Rhythm: Normal rate and regular rhythm. Heart sounds: Normal heart sounds. Pulmonary: Effort: Pulmonary effort is normal. Breath sounds: Normal breath sounds. Abdominal: General: Abdomen is flat. There is no distension. Palpations: Abdomen is soft. Tenderness: There is no abdominal tenderness. Skin: General: Skin is warm and dry. Comments: Surgical site dressed; C/D/I Neurological: Mental Status: He is alert. Comments: Alert Speech intact Moving extremities equally Follows simple commands Last Recorded Vitals Blood pressure 94/55, pulse 71, temperature 36.5 C (97.7 F), temperature source Temporal, resp. rate 18, height 2.007 m (6' 7"), weight 101 kg (222 lb), SpO2 97%. Intake/Output last 3 Shifts: I/O last 3 completed shifts: In: 1068 (10.6 mL/kg) [P.O.:818; IV Piggyback:250] Out: 2925 (29 mL/kg) [Urine:2925 (0.8 mL/kg/hr)] Weight: 100.7 kg Labs Lab Results Component Value Date WBC 15.6 (H) 10/18/2024 HGB 8.4 (L) 10/18/2024 HCT 27.3 (L) 10/18/2024 MCV 90 10/18/2024 PLT 605 (H) 10/18/2024 Lab Results Component Value Date GLUCOSE 97 10/18/2024 CALCIUM 10.1 10/18/2024 NA 139 10/18/2024 K 4.0 10/18/2024 CO2 27 10/18/2024 CL 101 10/18/2024 BUN 17 10/18/2024 CREATININE 1.72 (H) 10/18/2024 Lab Results Component Value Date CALCIUM 10.1 10/18/2024 PHOS 3.2 10/18/2024 Relevant Results Scheduled medications acetaminophen, 975 mg, oral, TID calcium carbonate, 500 mg, oral, Daily cetirizine, 10 mg, oral, Daily clindamycin, , Topical, BID heparin (porcine), 5,000 Units, subcutaneous, q8h BERNADETTE nicotine, 1 patch, transdermal, Daily piperacillin-tazobactam, 3.375 g, intravenous, q6h polyethylene glycol, 17 g, oral, Daily tiZANidine, 2 mg, oral, TID vancomycin, 750 mg, intravenous, q12h Continuous medications PRN medications PRN medications: HYDROmorphone, nicotine polacrilex, oxyCODONE, oxyCODONE, vancomycin Assessment/Plan Assessment & Plan Wound infection Abscess Kevan La is a 49 y.o. male with refractory hidradenitis supprativa (HS) not responding to povorcitinib (RCT candidate), apremilast, isotretinoin, adalimumab, infliximab, moxifloxacin/metronidazole, minocyclin, clindamycin, rifampin, augmentin and doxycycline. He came to [facility] with severe HS and associated deep seated tissue infection. He had fatigue, malaise, worsening leukocytosis and pain. CT AP done showed worsening infection and tissue plane crossing compared to CT done in August. The left gluteus randell muscle is enlarged, heterogeneously enhancing with the serpiginous fluid pockets consistent with phlegmon/abscess. This measures up to 9.2 x 5.7 cm in transaxial dimension by at least 13.2 cm longitudinally. Started on IV vancomycin and Zosyn. There is risk of muscle necrosis, spreading to deeper tissue plane and sepsis. Acute care surgery took patient for incision and drainage of his L thigh on 10/13/2024. Dermatology has been consulted and are following. Appreciate recommendations. Patient with arterial bleed from I&D site on 10/15. Addressed with stitch from general surgery. Patient has remained stable. Continued on IV vanc and zosyn at this time. Tissue culture taken 10/13 demonstrates rare mixed anaerobic bacteria, rare mixed gram (+) and gram (-) bacteria; no organisms seen. Patient's blood culture (taken 10/10) resulted with Mylesia dhavala on 10/16. Formal ID consult placed for further recommendations. Updates 10/18: -Blood culture 10/10 with shanthicynthiaia dhavala in addition to other prior culture taken on 10/10 with staph hominis - Blood cultures taken 10/13 remain NGTD - Tissue culture 10/13 with rare mixed anaerobic bacteria, rare mixed gram (+) and gram (-) bacteria; no organisms seen - ID consults recommend continuing vanc and zosyn at this time #Gluteal abscess s/p I&D 10/13 #Deep tissue infection #Refractory hidradenitis suppurativa :: C/W vancomycin and Zosyn at this time pending data from deep tissue culture --> can broaden to meropenem if patient's WBC continue to uptrend / he becomes HDUS :: CT scan finding warrants drainage / debridement and tissue sample extraction for culture and sensitivity - s/p incision and drainage on 10/13; pending tissue cultures --> Wet to dry dressing BID per surgery --> Clindamycin around wound area BID :: Prior blood cultures taken on 10/10 --> one tube with Gram positive cocci, pairs and chains --> resulted 10/16 with slacynthiaia exmohindera --> one tube with Staph hominis identified :: Blood cultures taken 10/13/2024 NGTD :: ID consult placed :: Tissue culture 10/13 with rare mixed anaerobic bacteria, rare mixed gram (+) and gram (-) bacteria; no organisms seen Plan: - IV vanc/zosyn per ID recommendations - Tylenol scheduled, oxycodone, dilaudid PRN for pain - Hold povorcitinib, last dose of povorcitinib 10/10 - Hold home oral iron - Keep on nicotine patch and PRN nicotine #Analgesic Nephropathy - Cr 1.69 on admission - 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 I personally obtained the gomez and critical portions of the history and physical exam or was physically present for gomez and critical portions performed by the resident/fellow. I reviewed the resident/fellow's documentation and discussed the patient with the resident/fellow. I agree with the resident/fellow's medical decision making as documented in the note. Principal Problem: Gluteal abscess Active Problems: Hidradenitis suppurativa Wound infection Chronic renal insufficiency Bacteremia due to Staphylococcus Abscess -ctn IV abx and follow fx -appreciate ACS addressing bleeding and updates. Consults reviewed -agree w pain regimen -ID consult reviewed: ctn zosyn 2 weeks -midline -[place] consult for Medicaid help -will need SNF placment for IV abx and ongoing wound care and inability to ambulate safely I spent 40 minutes in professional medical decision making, [id number] examination and counseling, care coordination, chart review, discussions with consultants, and care planning Kevan La is a 49 y.o. male on day 7 of admission presenting with Gluteal abscess. This TCC requested a pending Medicaid # from HRS. 11:10 am This TCC discussed with pt need for SNF due to IV ABX and wound care. Pt agreeable to SNF. This TCC gave pt a list of SNFs. Pt agrees for TCC to return shortly to get choices. 01:00pm This TCC returned to get SNF choices. This TCC educated pt on his freedom of choice. Pt made choices as follows. 1st [facility]nd [facility] 3rd [facility] and 4th [facility]. Referrals made via [facility]. [phone] This TCC followed up with pt that none of the facilities accepted the pt.Pt agreeable for blanket referral to be made to see who can accept pending medicaid number and then pt can choose from those facilities. [place] referral made. TCC to follow up with discharge planning. Usman RUIZN, TCC [phone] [email or web address] Kevan La is a 49 y.o. male on day 7 of admission presenting with Gluteal abscess. Subjective NAEO. Patient is laying in bed and bed sheet is soaked in discharge. Discharge is foul smelling. Otherwise denied diarrhea, fevers, chills. Objective Range of Vitals (last 24 hours) Heart Rate: [69-78] Temp: [36.5 C (97.7 F)-36.7 C (98.1 F)] Resp: [12-18] BP: (100-102)/(55-64) SpO2: [95 %-98 %] Daily Weight 10/11/24 : 101 kg (222 lb) Body mass index is 25.01 kg/m . Physical Exam General: Patient is laying in bed, in no acute distress. HEENT: Edentulous mouth. CVS: S1/S2 audible, no M/G/R. Resp: Breathing comfortably on RA. Normal vesicular breathing. No wheezing, crackles or rhonchi auscultated. Abd: Non distended, non tender, no organomegaly was appreciated. +BS. ENVIRONMENTAL PLANNER: AAO x4. No gross focal deficits appreciated. MSK/Skin: L lateral thigh is dressed with an ABD which is soaked. Antibiotics clindamycin - 1 % doxycycline - 100 mg piperacillin-tazobactam - 3.375 gram/50 mL Relevant Results Labs Results from last 72 hours Lab Units 10/17/24 1206 10/16/24 0450 WBC AUTO x10*3/uL 16.7* 14.4* HEMOGLOBIN g/dL 8.5* 8.9* HEMATOCRIT % 25.1* 27.8* PLATELETS AUTO x10*3/uL 590* 633* NEUTROS PCT AUTO % 75.1 70.2 LYMPHS PCT AUTO % 14.2 17.6 MONOS PCT AUTO % 7.8 7.5 EOS PCT AUTO % 1.6 2.8 Results from last 72 hours Lab Units 10/17/24 1926 10/17/24 0811 10/16/24 0732 SODIUM mmol/L 136 138 138 POTASSIUM mmol/L 4.3 5.6* 4.3 CHLORIDE mmol/L 99 103 103 CO2 mmol/L 27 25 26 BUN mg/dL 17 14 12 CREATININE mg/dL 1.62* 1.62* 1.50* GLUCOSE mg/dL 98 91 104* CALCIUM mg/dL 10.4 10.2 10.0 ANION GAP mmol/L 14 16 13 EGFR mL/min/1.73m*2 51* 51* 56* PHOSPHORUS mg/dL 3.7 4.1 3.2 Results from last 72 hours Lab Units 10/17/24 1926 10/17/24 0811 10/16/24 0732 ALK PHOS U/L -- 62 60 BILIRUBIN TOTAL mg/dL -- 0.3 0.2 PROTEIN TOTAL g/dL -- 7.3 7.2 ALT U/L -- 11 10 AST U/L -- 35 11 ALBUMIN g/dL 3.7 3.4 3.4 Estimated Creatinine Clearance: 71.5 mL/min (A) (by C-G formula based on SCr of 1.62 mg/dL (H)). C-Reactive Protein Date Value Ref Range Status 10/10/2024 7.72 (H) <1.00 mg/dL Final Microbiology Susceptibility data from last 14 days. Collected Specimen Info Organism Ampicillin/Sulbactam Ceftriaxone Clindamycin Meropenem Penicillin 10/13/24 Swab from ABSCESS Mixed Anaerobic Bacteria Mixed Gram-Positive and Gram-Negative Bacteria 10/11/24 Tissue/Biopsy from Other (specify in comments) Mixed Anaerobic Bacteria Mixed Gram-Positive and Gram-Negative Bacteria 10/10/24 Blood culture from Peripheral Venipuncture Slackia exigua S S S S S 10/10/24 Blood culture from Peripheral Venipuncture Staphylococcus hominis Imaging CT Pelvis: 10/10/2024: IMPRESSION: 1. Left gluteal skin thickening and ulceration, with phlegmon and fluid extending from the skin abnormality into the gluteus randell muscle. Large area of phlegmon/abscess within the gluteus randell as detailed above. 2. No evidence of osteomyelitis. Micro: 10/10: Blood Cx: Slackia Exugia in anaerobic bottle, Staph hominis in another set. 10/11: Tissue/Wound Cx: 4+ Abundant mixed gram positive and gram negative bacteria, 4+ Abundant Mixed anaerobic bacteria. 10/13: Tissue/Wound Cx: 1+ Rare Mixed Anaerobic Bacteria, 1+ Rare Mixed gram positive and gram negative bacteria. 10/13: Blood Cx: NGTD Antibiotics: Zosyn: 10/10 - p Vancomycin: 10/10 - p Assessment/Plan 49-year-old male with a history of hidradenitis suppurativa on povorcitinib trial, presenting with recurrent left gluteal wound infection, now post-I&D on 10/13 with OR cultures growing mixed aerobic and anaerobic organisms and blood cultures growing Slackia exigua (an obligate anaerobe) and Staph hominis. Given that he had a fever, persistent leukocytosis (17.5), we would prefer to treat Slackia exigua despite its uncertain pathogenicity. Have called lab to find out if Staph hominis is methicillin S/R. Once we have that information will make a final plan. For now continue IV Vancomycin. Clinical Impression: Refractory Hidradenitis Suppurativa, L Gluteal Abscess, Slackia Exugia Bacteremia Recommendations: Continue IV Vancomycin. Continue IV PipTazo for now. Attding addendum: would de-escalate to amp/sulbactam Will tentatively require 2 weeks of IV amp/sulbactam for bacteremia and gluteal abscess. Can place a midline. Will monitor clinically. Plan was discussed with ID attending Dr Rodriguez. We will continue to follow the patient. Ivette Pina MD PGY5, ID Fellow. For new consults, contact pager [phone]. EPIC chat preferred. I saw and evaluated the patient. I personally obtained the gomez and critical portions of the history and physical exam or was physically present for gomez and critical portions performed by the resident/fellow. I reviewed the resident/fellow's documentation and discussed the patient with the resident/fellow. I agree with the resident/fellow's medical decision making as documented in the note with the exception/addition of the following: Do not believe he needs the broad coverage of pip/tazo and would de-escalate to amp/sulbactam. Awaiting Staph hominis sensitivities to see if needs vanco. Trudi Rodriguez MD Vancomycin Dosing by Pharmacy- Cessation of Therapy Consult to pharmacy for vancomycin dosing has been discontinued by the prescriber, pharmacy will sign off at this time. Please call pharmacy if there are further questions or re-enter a consult if vancomycin is resumed. Maria Schneider PharmD Kevan La is a 49 y.o. male on day 6 of admission presenting with Gluteal abscess. Transitional Care Coordination Progress Note: Patient discussed during interdisciplinary rounds. Team members present: MD MIGUEL Plan per medical/surgical team: Continue IV Vanco and Zosyn-Awaiting final ID reccs for abx. Payer: no insurance-[facility] can accept for [place] Medicaid Status: inpatient Discharge disposition: ?SNF-If IV abx and wound needed Potential Barriers: no insurance ADOD: 10/18 2050-MIGUEL spoke to pt about possible DC plans. Pt states he would be agreeable to go to a SNF that accepts a pending Medicaid # for wound care and if IV abx is needed. 1552-TCC requested a pending Medicaid # from [facility]-medical team updated. [facility] ACUTE CARE SURGERY - PROGRESS NOTE Patient Name: Kevan La Admit Date: [id number] : 1975 AGE: 49 y.o. GENDER: male TODAY'S ASSESSMENT AND PLAN OF CARE: 49M with refractory HS (now on povorcitinib in clinical trial) who presents for L gluteal HS flare with concern for infection. Now s/p left thigh I&D on 10/13 with ACS. Wound bled overnight on 10/15 but hemostasis achieved with figure of 8 stitch and surgicel. Recs: -Recommend continuation of antibiotics given continued purulent discharge; appreciate ID eval for duration -Consider dermatology consultation for suppressive therapy given severe hidradenitis seen on exam -Patient likely would not benefit from additional debridements at this time due to extensive nature of disease and unlikelihood of healing more significant wound that would be required for further excision -Continue BID wet to dry dressings to left thigh -Please call for any additional questions or concerns D/w Dr. Maurice Chavis MD PGY-2 Gen Surg Acute Care Surgery Service Team Pager: [phone] CHIEF COMPLAINT / EVENTS LAST 24HRS / HPI: NAEO. Patient wound remains hemostatic. Continues to have purulent output. MEDICAL HISTORY / ROS: Admission history and ROS reviewed. PHYSICAL EXAM: Heart Rate: [63-81] Temp: [36 C (96.8 F)-36.6 C (97.9 F)] Resp: [16-18] BP: (94-105)/(55-63) SpO2: [96 %-98 %] Head/Neck: NCAT Eyes: Anicteric Cardiovascular: Regular rate and rhythm per peripheral palpation Respiratory: Breathing comfortably on RA with symmetric chest rise Abdominal: Soft, non tender, non-distended without rebound or guarding : Deferred Ext: MAEx4. Left lateral thigh wound C/D/I with Kerlix packing exchanged at bedside and appropriate hemostasis visualized. Continues to have purulent discharge from wound and surrounding tracts Psych: Appropriate mood and affect LABS: Results from last 7 days Lab Units 10/16/24 0450 10/15/24 0836 10/14/24 0830 WBC AUTO x10*3/uL 14.4* 12.9* 15.0* HEMOGLOBIN g/dL 8.9* 9.2* 8.1* HEMATOCRIT % 27.8* 29.1* 26.6* PLATELETS AUTO x10*3/uL 633* 635* 561* NEUTROS PCT AUTO % 70.2 66.4 77.9 LYMPHS PCT AUTO % 17.6 21.4 13.1 MONOS PCT AUTO % 7.5 7.6 5.6 EOS PCT AUTO % 2.8 3.1 2.0 Results from last 7 days Lab Units 10/16/24 0450 10/10/24 1617 APTT seconds 30 32 INR 1.0 1.2* Results from last 7 days Lab Units 10/17/24 0811 10/16/24 0732 10/15/24 0836 SODIUM mmol/L 138 138 138 POTASSIUM mmol/L 5.6* 4.3 4.0 CHLORIDE mmol/L 103 103 102 CO2 mmol/L 25 26 27 BUN mg/dL 14 12 10 CREATININE mg/dL 1.62* 1.50* 1.53* CALCIUM mg/dL 10.2 10.0 9.5 PROTEIN TOTAL g/dL 7.3 7.2 6.9 BILIRUBIN TOTAL mg/dL 0.3 0.2 0.2 ALK PHOS U/L 62 60 60 ALT U/L 11 10 9* AST U/L 35 11 9 GLUCOSE mg/dL 91 104* 94 Results from last 7 days Lab Units 10/17/24 0811 10/16/24 0732 10/15/24 0836 BILIRUBIN TOTAL mg/dL 0.3 0.2 0.2 Results from last 7 days Lab Units 10/13/24 1156 POCT PH, ARTERIAL pH 7.37* POCT PCO2, ARTERIAL mm Hg 42 POCT PO2, ARTERIAL mm Hg 73* POCT HCO3 CALCULATED, ARTERIAL mmol/L 24.3 POCT BASE EXCESS, ARTERIAL mmol/L -1.0 I have reviewed all medications, laboratory results, and imaging pertinent for today's encounter. Cosigned by Terrence Richards DO at 10/17/2024 10:43 PM EST Associated attestation - Terrence Richards DO - 10/17/2024 10:43 PM EST I reviewed the resident/fellow's documentation and discussed the patient with the resident/fellow. I agree with the resident/fellow's medical decision making as documented in the note. Terrence Richards DO Vancomycin Dosing by Pharmacy- FOLLOW UP Kevan La is a 49 y.o. year old male who Pharmacy has been consulted for vancomycin dosing for cellulitis, skin and soft tissue. Based on the patient's indication and renal status this patient is being dosed based on a goal AUC of 400-600. Renal function is currently stable. Current vancomycin dose: 750 mg given every 12 hours Estimated vancomycin AUC on current dose: 447 mg/L.hr Visit Vitals BP 103/57 (BP Location: Left arm, Patient Position: Lying) Pulse 63 Temp 36.6 C (97.9 F) (Temporal) Resp 16 Lab Results Component Value Date CREATININE 1.62 (H) 10/17/2024 CREATININE 1.50 (H) 10/16/2024 CREATININE 1.53 (H) 10/15/2024 CREATININE 1.44 (H) 10/14/2024 Patient weight is as follows: Vitals: 10/11/24 1015 Weight: 101 kg (222 lb) Cultures: Susceptibility data for the encounter in last 14 days. Collected Specimen Info Organism 10/13/24 Swab from ABSCESS Mixed Anaerobic Bacteria Mixed Gram-Positive and Gram-Negative Bacteria 10/11/24 Tissue/Biopsy from Other (specify in comments) Mixed Anaerobic Bacteria Mixed Gram-Positive and Gram-Negative Bacteria 10/10/24 Blood culture from Peripheral Venipuncture Marta powers 10/10/24 Blood culture from Peripheral Venipuncture Staphylococcus hominis I/O last 3 completed shifts: In: 1940 (19.3 mL/kg) [P.O.:1440; IV Piggyback:500] Out: 5750 (57.1 mL/kg) [Urine:5750 (1.6 mL/kg/hr)] Weight: 100.7 kg I/O during current shift: I/O this shift: In: 818 [P.O.:818] Out: 375 [Urine:375] Temp (24hrs), Av.4 C (97.5 F), Min:36 C (96.8 F), Max:36.6 C (97.9 F) Assessment/Plan Within goal AUC range. Continue current vancomycin regimen. This dosing regimen is predicted by [employer] to result in the following pharmacokinetic parameters: Regimen: 750 mg IV every 12 hours. Start time: 11:54 on 10/17/2024 Exposure target: AUC24 (range)400-600 mg/L.hr [id number]: 443 mg/L.hr AUC24,ss: 447 mg/L.hr Probability of AUC24 > 400: 86 % Ctrough,ss: 14.8 mg/L Probability of Ctrough,ss > 20: 2 % The next level will be obtained on 10/21 with AM labs. May be obtained sooner if clinically indicated. Will continue to monitor renal function daily while on vancomycin and order serum creatinine at least every 48 hours if not already ordered. Follow for continued vancomycin needs, clinical response, and signs/symptoms of toxicity. Sudhakar Woo PharmD, BCPS Vancomycin Dosing by Pharmacy- FOLLOW UP Kevan La is a 49 y.o. year old male who Pharmacy has been consulted for vancomycin dosing for cellulitis, skin and soft tissue. Based on the patient's indication and renal status this patient is being dosed based on a goal AUC of 400-600. Renal function is currently stable. Current vancomycin dose: 750 mg given every 12 hours Estimated vancomycin AUC on current dose: 448 mg/L.hr Visit Vitals BP 103/57 (BP Location: Left arm, Patient Position: Lying) Pulse 63 Temp 36.6 C (97.9 F) (Temporal) Resp 16 Lab Results Component Value Date CREATININE 1.62 (H) 10/17/2024 CREATININE 1.50 (H) 10/16/2024 CREATININE 1.53 (H) 10/15/2024 CREATININE 1.44 (H) 10/14/2024 Patient weight is as follows: Vitals: 10/11/24 1015 Weight: 101 kg (222 lb) Cultures: Susceptibility data for the encounter in last 14 days. Collected Specimen Info Organism 10/13/24 Swab from ABSCESS Mixed Anaerobic Bacteria Mixed Gram-Positive and Gram-Negative Bacteria 10/11/24 Tissue/Biopsy from Other (specify in comments) Mixed Anaerobic Bacteria Mixed Gram-Positive and Gram-Negative Bacteria 10/10/24 Blood culture from Peripheral Venipuncture Marta powers 10/10/24 Blood culture from Peripheral Venipuncture Staphylococcus hominis I/O last 3 completed shifts: In: 1940 (19.3 mL/kg) [P.O.:1440; IV Piggyback:500] Out: 5750 (57.1 mL/kg) [Urine:5750 (1.6 mL/kg/hr)] Weight: 100.7 kg I/O during current shift: I/O this shift: In: 818 [P.O.:818] Out: 375 [Urine:375] Temp (24hrs), Av.4 C (97.5 F), Min:36 C (96.8 F), Max:36.6 C (97.9 F) Assessment/Plan Within goal AUC range. Continue current vancomycin regimen. This dosing regimen is predicted by [employer] to result in the following pharmacokinetic parameters: Regimen: 750 mg IV every 12 hours. Exposure target: AUC24 (range)400-600 mg/L.hr [id number]: 443 mg/L.hr AUC24,ss: 448 mg/L.hr Probability of AUC24 > 400: 86 % Ctrough,ss: 14.8 mg/L Probability of Ctrough,ss > 20: 2 % The next level will be obtained on 10/21 at 1st am labs. May be obtained sooner if clinically indicated. Will continue to monitor renal function daily while on vancomycin and order serum creatinine at least every 48 hours if not already ordered. Follow for continued vancomycin needs, clinical response, and signs/symptoms of toxicity. Maria Schneider PharmD Kevan La is a 49 y.o. male on day 6 of admission presenting with Gluteal abscess. Subjective No acute events over night. Mr. La reported pain at the I&D site today the started after his dressing was changed. He reported improved pain overnight. He otherwise denies chest pain, shortness of breath and abdominal pain. He was in no acute distress on exam. Objective Physical Exam HENT: Head: Normocephalic. Eyes: Conjunctiva/sclera: Conjunctivae normal. Cardiovascular: Rate and Rhythm: Normal rate and regular rhythm. Heart sounds: Normal heart sounds. Pulmonary: Effort: Pulmonary effort is normal. Breath sounds: Normal breath sounds. Abdominal: General: Abdomen is flat. There is no distension. Palpations: Abdomen is soft. Tenderness: There is no abdominal tenderness. Skin: General: Skin is warm and dry. Comments: Surgical site dressed; C/D/I Neurological: Mental Status: He is alert. Comments: Alert Speech intact Moving extremities equally Follows simple commands Last Recorded Vitals Blood pressure 94/55, pulse 70, temperature 36.5 C (97.7 F), temperature source Temporal, resp. rate 18, height 2.007 m (6' 7"), weight 101 kg (222 lb), SpO2 98%. Intake/Output last 3 Shifts: I/O last 3 completed shifts: In: 1690 (16.8 mL/kg) [P.O.:1440; IV Piggyback:250] Out: 6150 (61.1 mL/kg) [Urine:6150 (1.7 mL/kg/hr)] Weight: 100.7 kg Labs Lab Results Component Value Date WBC 14.4 (H) 10/16/2024 HGB 8.9 (L) 10/16/2024 HCT 27.8 (L) 10/16/2024 MCV 87 10/16/2024 PLT 633 (H) 10/16/2024 Lab Results Component Value Date GLUCOSE 104 (H) 10/16/2024 CALCIUM 10.0 10/16/2024 NA 138 10/16/2024 K 4.3 10/16/2024 CO2 26 10/16/2024 CL 103 10/16/2024 BUN 12 10/16/2024 CREATININE 1.50 (H) 10/16/2024 Lab Results Component Value Date CALCIUM 10.0 10/16/2024 PHOS 3.2 10/16/2024 Relevant Results Scheduled medications acetaminophen, 975 mg, oral, TID calcium carbonate, 500 mg, oral, Daily cetirizine, 10 mg, oral, Daily clindamycin, , Topical, BID heparin (porcine), 5,000 Units, subcutaneous, q8h BERNADETTE nicotine, 1 patch, transdermal, Daily piperacillin-tazobactam, 3.375 g, intravenous, q6h polyethylene glycol, 17 g, oral, Daily tiZANidine, 2 mg, oral, TID vancomycin, 750 mg, intravenous, q12h Continuous medications PRN medications PRN medications: HYDROmorphone, nicotine polacrilex, oxyCODONE, oxyCODONE, vancomycin Assessment/Plan Assessment & Plan Wound infection Abscess Kevan La is a 49 y.o. male with refractory hidradenitis supprativa (HS) not responding to povorcitinib (RCT candidate), apremilast, isotretinoin, adalimumab, infliximab, moxifloxacin/metronidazole, minocyclin, clindamycin, rifampin, augmentin and doxycycline. He came to [facility] with severe HS and associated deep seated tissue infection. He had fatigue, malaise, worsening leukocytosis and pain. CT AP done showed worsening infection and tissue plane crossing compared to CT done in August. The left gluteus randell muscle is enlarged, heterogeneously enhancing with the serpiginous fluid pockets consistent with phlegmon/abscess. This measures up to 9.2 x 5.7 cm in transaxial dimension by at least 13.2 cm longitudinally. Started on IV vancomycin and Zosyn. There is risk of muscle necrosis, spreading to deeper tissue plane and sepsis. Acute care surgery took patient for incision and drainage of his L thigh on 10/13/2024. Dermatology has been consulted and are following. Appreciate recommendations. Patient with arterial bleed from I&D site on 10/15. Addressed with stitch from general surgery. Patient has remained stable. Continued on IV vanc and zosyn at this time. Tissue culture taken 10/13 demonstrates rare mixed anaerobic bacteria, rare mixed gram (+) and gram (-) bacteria; no organisms seen. Patient's blood culture (taken 10/10) resulted with Shanthicynthiaia dhavala on 10/16. Formal ID consult placed for further recommendations. Updates 10/17: -Blood culture 10/10 with slacynthiaia roxannemohindera in addition to other prior culture taken on 10/10 with staph hominis - Blood cultures taken 10/13 remain NGTD - Tissue culture 10/13 with rare mixed anaerobic bacteria, rare mixed gram (+) and gram (-) bacteria; no organisms seen #Gluteal abscess s/p I&D 10/13 #Deep tissue infection #Refractory hidradenitis suppurativa :: C/W vancomycin and Zosyn at this time pending data from deep tissue culture --> can broaden to meropenem if patient's WBC continue to uptrend / he becomes HDUS :: CT scan finding warrants drainage / debridement and tissue sample extraction for culture and sensitivity - s/p incision and drainage on 10/13; pending tissue cultures --> Wet to dry dressing BID per surgery --> Clindamycin around wound area BID :: Prior blood cultures taken on 10/10 --> one tube with Gram positive cocci, pairs and chains --> resulted 10/16 with slackia exmohindera --> one tube with Staph hominis identified :: Blood cultures taken 10/13/2024 NGTD :: ID consult placed :: Tissue culture 10/13 with rare mixed anaerobic bacteria, rare mixed gram (+) and gram (-) bacteria; no organisms seen Plan: - IV vanc/zosyn pending ID recommendations - Tylenol scheduled, oxycodone, dilaudid PRN for pain - Hold povorcitinib, last dose of povorcitinib 10/10 - Hold home oral iron - Keep on nicotine patch and PRN nicotine #Analgesic Nephropathy - Cr 1.69 on admission - assisted NSAID use for HS, most recently was on home ibuprofen - Hold home ibuprofen - UA unremarkable - CT A/P no hydronephrosis or renal abnormality - Avoid nephrotoxic drug, hypotension, sepsis, dehydration - Continuing to endorse oral hydration Fluid: PRN Electrolyte: PRN Diet: regular DVT prophylaxis: SCD, UFH Code status: FULL CODE NOK: Omkar La (brother, ) Gluteal abscess Bacteremia due to Staphylococcus Delilah Almanza MD Neurology, PGY-1 Cosigned by Delgado Renee DO at 10/18/2024 11:02 AM EST Associated attestation - Delgado Renee DO - 10/18/2024 11:02 AM EST I saw and evaluated the patient. I personally obtained the gomez and critical portions of the history and physical exam or was physically present for gomez and critical portions performed by the resident/fellow. I reviewed the resident/fellow's documentation and discussed the patient with the resident/fellow. I agree with the resident/fellow's medical decision making as documented in the note. Principal Problem: Gluteal abscess Active Problems: Hidradenitis suppurativa Wound infection Chronic renal insufficiency Bacteremia due to Staphylococcus Abscess -ctn IV abx and follow fx -appreciate ACS addressing bleeding and updates. Consults reviewed -agree w pain regimen -ID consult reviewed: ctn zosyn 2 weeks -midline -[place] consult for Medicaid help -will need SNF placment for IV abx and ongoing wound care and inability to ambulate safely I spent 40 minutes in professional medical decision making, [id number] examination and counseling, care coordination, chart review, discussions with consultants, and care planning Kevan La is a 49 y.o. male on day 5 of admission presenting with Gluteal abscess. Subjective Overnight the patient had an arterial bleed from his I&D site. Surgery was called and placed a stitch to control the bleeding and redressed the wound. The patient reported pain at the I&D site and feelings of generalized weakness. Denied chest pain, shortness of breath and abdominal pain. In no acute distress on exam. Dressing examined and demonstrated some bloody drainage. Objective Physical Exam HENT: Head: Normocephalic. Eyes: Conjunctiva/sclera: Conjunctivae normal. Cardiovascular: Rate and Rhythm: Normal rate and regular rhythm. Heart sounds: Normal heart sounds. Pulmonary: Effort: Pulmonary effort is normal. Breath sounds: Normal breath sounds. Abdominal: General: Abdomen is flat. There is no distension. Palpations: Abdomen is soft. Tenderness: There is no abdominal tenderness. Skin: General: Skin is warm and dry. Comments: Surgical site dressed; some bloody fluid drainage on the dressing Neurological: Mental Status: He is alert. Comments: Alert Speech intact Moving extremities equally Follows simple commands Last Recorded Vitals Blood pressure 100/63, pulse 64, temperature 36 C (96.8 F), temperature source Temporal, resp. rate 18, height 2.007 m (6' 7"), weight 101 kg (222 lb), SpO2 97%. Intake/Output last 3 Shifts: I/O last 3 completed shifts: In: 720 (7.2 mL/kg) [P.O.:720] Out: 6000 (59.6 mL/kg) [Urine:6000 (1.7 mL/kg/hr)] Weight: 100.7 kg Labs Lab Results Component Value Date WBC 14.4 (H) 10/16/2024 HGB 8.9 (L) 10/16/2024 HCT 27.8 (L) 10/16/2024 MCV 87 10/16/2024 PLT 633 (H) 10/16/2024 Lab Results Component Value Date GLUCOSE 104 (H) 10/16/2024 CALCIUM 10.0 10/16/2024 NA 138 10/16/2024 K 4.3 10/16/2024 CO2 26 10/16/2024 CL 103 10/16/2024 BUN 12 10/16/2024 CREATININE 1.50 (H) 10/16/2024 Lab Results Component Value Date CALCIUM 10.0 10/16/2024 PHOS 3.2 10/16/2024 Relevant Results Scheduled medications acetaminophen, 975 mg, oral, TID calcium carbonate, 500 mg, oral, Daily cetirizine, 10 mg, oral, Daily clindamycin, , Topical, BID heparin (porcine), 5,000 Units, subcutaneous, q8h BERNADETTE nicotine, 1 patch, transdermal, Daily piperacillin-tazobactam, 3.375 g, intravenous, q6h polyethylene glycol, 17 g, oral, Daily tiZANidine, 2 mg, oral, TID vancomycin, 750 mg, intravenous, q12h Continuous medications PRN medications PRN medications: HYDROmorphone, nicotine polacrilex, oxyCODONE, oxyCODONE, vancomycin Assessment/Plan Assessment & Plan Wound infection Abscess Kevan La is a 49 y.o. male with refractory hidradenitis supprativa (HS) not responding to povorcitinib (RCT candidate), apremilast, isotretinoin, adalimumab, infliximab, moxifloxacin/metronidazole, minocyclin, clindamycin, rifampin, augmentin and doxycycline. He came to [facility] with severe HS and associated deep seated tissue infection. He had fatigue, malaise, worsening leukocytosis and pain. CT AP done showed worsening infection and tissue plane crossing compared to CT done in August. The left gluteus randell muscle is enlarged, heterogeneously enhancing with the serpiginous fluid pockets consistent with phlegmon/abscess. This measures up to 9.2 x 5.7 cm in transaxial dimension by at least 13.2 cm longitudinally. Started on IV vancomycin and Zosyn. There is risk of muscle necrosis, spreading to deeper tissue plane and sepsis. Acute care surgery took patient for incision and drainage of his L thigh on 10/13/2024. Dermatology has been consulted and are following. Appreciate recommendations. Patient with arterial bleed from I&D site on 10/15. Addressed with stitch from general surgery. Updates 10/16: - Follow-up Intra-Op cultures #Gluteal abscess s/p I&D 10/13 #Deep tissue infection #Refractory hidradenitis suppurativa :: C/W vancomycin and Zosyn at this time pending data from deep tissue culture --> can broaden to meropenem if patient's WBC continue to uptrend / he becomes HDUS :: CT scan finding warrants drainage / debridement and tissue sample extraction for culture and sensitivity - s/p incision and drainage on 10/13; pending tissue cultures --> Wet to dry dressing BID per surgery --> Clindamycin around wound area BID :: Prior blood cultures taken on 10/10 resulted on 10/13: --> one tube with Gram positive cocci, pairs and chains --> one tube with Staph hominis identified :: Blood cultures taken 10/13/2024 no growth at 3 days x2 Plan: - Tylenol scheduled, oxycodone, dilaudid PRN for pain - Hold povorcitinib, last dose of povorcitinib 10/10 - Hold home oral iron - Keep on nicotine patch and PRN nicotine - Follow-up Intra-Op cultures - Elevated wbc likely reactive iso bacteremia from I&D will trend and if still trending up will switch Zosyn to Meropenem; WBC 14.4 #Analgesic Nephropathy - Cr 1.69 on admission - 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 I personally obtained the gomez and critical portions of the history and physical exam or was physically present for gomez and critical portions performed by the resident/fellow. I reviewed the resident/fellow's documentation and discussed the patient with the resident/fellow. I agree with the resident/fellow's medical decision making as documented in the note. Principal Problem: Gluteal abscess Active Problems: Hidradenitis suppurativa Wound infection Chronic renal insufficiency Bacteremia due to Staphylococcus Abscess -ctn IV abx and follow fx -appreciate ACS addressing bleeding and updates. Consults reviewed -agree w pain regimen -follow up cx -Cr seems tp be at bl if not slightly better I spent 40 minutes in professional medical decision making, [id number] examination and counseling, care coordination, chart review, discussions with consultants, and care planning [facility] SURGERY - PROGRESS NOTE Patient Name: Kevan La Admit Date: [id number] : 1975 AGE: 49 y.o. GENDER: male TODAY'S ASSESSMENT AND PLAN OF CARE: 49M with refractory HS (now on povorcitinib in clinical trial) who presents for L gluteal HS flare with concern for infection. Now s/p left thigh I&D on 10/13 with ACS. Wound bled overnight on 10/15 but hemostasis achieved with figure of 8 stitch and surgicel. Recs: -Recommend continuation of antibiotics given continued purulent discharge; appreciate ID eval for duration -Consider dermatology consultation for suppressive therapy given severe hidradenitis seen on exam -Patient likely would not benefit from additional debridements at this time due to extensive nature of disease and unlikelihood of healing more significant wound that would be required for further excision -Continue BID wet to dry dressings to left thigh -Please call with any further questions or concerns D/w Dr. Maurice Sweeney MD General Surgery - PGY1 Acute Care Surgery Service Team Pager: [phone] CHIEF COMPLAINT / EVENTS LAST 24HRS / HPI: Overnight pt wound noted to have pulsatile bleeding. Hemostasis achieved with figure of 8 stitch and surgicel. Pt reports no further bleeding. Denies fevers/chills MEDICAL HISTORY / ROS: Admission history and ROS reviewed. PHYSICAL EXAM: Heart Rate: [63-73] Temp: [35.8 C (96.4 F)-36.6 C (97.9 F)] Resp: [18-19] BP: (94-101)/(51-72) SpO2: [95 %-97 %] Head/Neck: NCAT Eyes: Anicteric Cardiovascular: Regular rate and rhythm per peripheral palpation Respiratory: Breathing comfortably on RA with symmetric chest rise Abdominal: Soft, non tender, non-distended without rebound or guarding : Deferred Ext: MAEx4. Left lateral thigh wound C/D/I with Kerlix packing exchanged at bedside and appropriate hemostasis visualized. Continues to have decreased purulent discharge from wound and surrounding tracts Psych: Appropriate mood and affect LABS: Results from last 7 days Lab Units 10/16/24 0450 10/15/24 0836 10/14/24 0830 WBC AUTO x10*3/uL 14.4* 12.9* 15.0* HEMOGLOBIN g/dL 8.9* 9.2* 8.1* HEMATOCRIT % 27.8* 29.1* 26.6* PLATELETS AUTO x10*3/uL 633* 635* 561* NEUTROS PCT AUTO % 70.2 66.4 77.9 LYMPHS PCT AUTO % 17.6 21.4 13.1 MONOS PCT AUTO % 7.5 7.6 5.6 EOS PCT AUTO % 2.8 3.1 2.0 Results from last 7 days Lab Units 10/16/24 0450 10/10/24 1617 APTT seconds 30 32 INR 1.0 1.2* Results from last 7 days Lab Units 10/16/24 0732 10/15/24 0836 10/14/24 0830 SODIUM mmol/L 138 138 137 POTASSIUM mmol/L 4.3 4.0 3.9 CHLORIDE mmol/L 103 102 102 CO2 mmol/L 26 27 26 BUN mg/dL 12 10 15 CREATININE mg/dL 1.50* 1.53* 1.44* CALCIUM mg/dL 10.0 9.5 9.0 PROTEIN TOTAL g/dL 7.2 6.9 6.4 BILIRUBIN TOTAL mg/dL 0.2 0.2 0.2 ALK PHOS U/L 60 60 60 ALT U/L 10 9* 9* AST U/L 11 9 6* GLUCOSE mg/dL 104* 94 163* Results from last 7 days Lab Units 10/16/24 0732 10/15/24 0836 10/14/24 0830 BILIRUBIN TOTAL mg/dL 0.2 0.2 0.2 Results from last 7 days Lab Units 10/13/24 1156 POCT PH, ARTERIAL pH 7.37* POCT PCO2, ARTERIAL mm Hg 42 POCT PO2, ARTERIAL mm Hg 73* POCT HCO3 CALCULATED, ARTERIAL mmol/L 24.3 POCT BASE EXCESS, ARTERIAL mmol/L -1.0 I have reviewed all medications, laboratory results, and imaging pertinent for today's encounter. Cosigned by Terrence Richards DO at 10/17/2024 10:17 PM EST Associated attestation - Terrence Richards DO - 10/17/2024 10:17 PM EST I reviewed the resident/fellow's documentation and discussed the patient with the resident/fellow. I agree with the resident/fellow's medical decision making as documented in the note. Terrence Richards DO Kevan La is a 49 y.o. male on day 5 of admission presenting with Gluteal abscess. Per [facility], "patient has been screened from a previous date of service and accepted for possible [place] Medicaid. We are pending copies of his paystubs and will continue to follow up with him to obtain." [facility] states for [facility] to notify them on the day of discharge and they will send a letter to Larry so pt can receive his medications. Medical team aware. Occupational Therapy Evaluation Patient Name: Kevan La Department: [facility] 20 Room: -A Today's Date: 10/15/2024 Time Calculation Start Time: 902 Stop Time: 915 Time Calculation (min): 13 min Assessment: OT Assessment: Pt presents to OT with increased falls risk, decreased safety and independence with functional transfers and mobility and impaired ADL performance. Pt will continue to benefit from skilled OT services to address deficits and facilitate safe return to PLOF and home environment. Prognosis: Good Barriers to Discharge Home: Caregiver assistance Caregiver Assistance: Patient lives alone and/or does not have reliable caregiver assistance Evaluation/Treatment Tolerance: Patient tolerated treatment well Medical Staff Made Aware: Yes End of Session Communication: Bedside nurse End of Session Patient Position: Bed, 3 rail up, Alarm off, not on at start of session OT Assessment Results: Decreased ADL status, Decreased functional mobility, Decreased IADLs, Decreased endurance Prognosis: Good Evaluation/Treatment Tolerance: Patient tolerated treatment well Medical Staff Made Aware: Yes Plan: Treatment Interventions: ADL retraining, Functional transfer training, UE strengthening/ROM, Endurance training, Compensatory technique education, Equipment evaluation/education, Patient/family training OT Frequency: 2 times per week OT Discharge Recommendations: Low intensity level of continued care Equipment Recommended upon Discharge: (possible LH AE) OT Recommended Transfer Status: Assist of 1, Stand by assist OT - OK to Discharge: Yes Treatment Interventions: ADL retraining, Functional transfer training, UE strengthening/ROM, Endurance training, Compensatory technique education, Equipment evaluation/education, Patient/family training Subjective Current Problem: 1. Hidradenitis suppurativa Case Request Operating Room: INCISION AND DRAINAGE, THIGH Case Request Operating Room: INCISION AND DRAINAGE, THIGH Fungal Culture/Smear Fungal Culture/Smear Tissue/Wound Culture/Smear Tissue/Wound Culture/Smear CANCELED: Case Request Operating Room: INCISION AND DRAINAGE, THIGH CANCELED: Case Request Operating Room: INCISION AND DRAINAGE, THIGH CANCELED: Case Request Operating Room: INCISION AND DRAINAGE, THIGH CANCELED: Case Request Operating Room: INCISION AND DRAINAGE, THIGH 2. Abscess CANCELED: Case Request Operating Room: INCISION AND DRAINAGE, THIGH CANCELED: Case Request Operating Room: INCISION AND DRAINAGE, THIGH CANCELED: Case Request Operating Room: INCISION AND DRAINAGE, THIGH CANCELED: Case Request Operating Room: INCISION AND DRAINAGE, THIGH 3. Wound infection CANCELED: Case Request Operating Room: INCISION AND DRAINAGE, THIGH CANCELED: Case Request Operating Room: INCISION AND DRAINAGE, THIGH CANCELED: Case Request Operating Room: INCISION AND DRAINAGE, THIGH CANCELED: Case Request Operating Room: INCISION AND DRAINAGE, THIGH General: General Reason for Referral: worsening (L) gluteal wound s/p I&D 10/13 Past Medical History Relevant to Rehab: hidradenitis supprativa Co-Treatment: PT Co-Treatment Reason: / high reports of pain and limited mobility upon admission to ensure pt safety throughout session with difficult transfers 10/20 location of I&D wound Prior to Session Communication: Bedside nurse Patient Position Received: Bed, 3 rail up, Alarm off, not on at start of session General Comment: Met in bed, partial sidelying to offload wound site; pleasant and cooperative and receptive to education; pt demo good insight to offload wound site however mildly impulsive with movements with resultant dizziness//lightheadedness-recept sulema to edu Precautions: Medical Precautions: Fall precautions Pain: Pain Assessment 0-10 (Numeric) Pain Score: 7 Pain Type: Surgical pain Pain Location: Buttocks Pain Orientation: Left Clinical Progression: (increased with activity) Pain Interventions: Repositioned (pre-medicated) Response to Interventions: Resting quietly Objective Cognition: Overall Cognitive Status: Within Functional Limits Arousal/Alertness: Appropriate responses to stimuli Orientation Level: Oriented X4 Following Commands: Follows one step commands without difficulty Insight: Within function limits Impulsive: Mildly Home Living: Type of Home: House Lives With: (dog, beagle) Home Adaptive Equipment: None Home Layout: One level, Laundry in basement Home Access: Stairs to enter with rails Entrance Stairs-Number of Steps: 3 Bathroom Shower/Tub: Tub/shower unit Bathroom Equipment: None Prior Function: Level of [place]: Independent with ADLs and functional transfers, Independent with homemaking with ambulation Receives Help From: (neighbors currently caring for dog) ADL Assistance: Independent Homemaking Assistance: Independent Ambulatory Assistance: Independent 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 Prior Function Comments: -falls IADL History: Current License: Yes Mode of Transportation: Car 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 ADL: Eating Assistance: Independent Grooming Assistance: Stand by Grooming Deficit: Brushing hair Bathing Assistance: Minimal (anticipate) UE Dressing Assistance: Minimal (anticipate) LE Dressing Assistance: Moderate (anticipate) LE Dressing Deficit: (edu on adaptive techniques including supine dressing with verb good understanding) Toileting Assistance with Device: Minimal (anticipate) Activity Tolerance: Endurance: Tolerates less than 10 min exercise, no significant change in vital signs Bed Mobility/Transfers: Bed Mobility Bed Mobility: (pt transitions from supine/partial sidelying to almost immediate standing with BUE supported on bed rails/footboard with mininally sitting/kneeling in order to offload L buttocks/lat thigh and returns to bed at end of session with [facility]) Transfers Transfer: Yes Transfer 1 Transfer From 1: Bed to Transfer to 1: Stand Technique 1: Sit to stand, Stand to sit Transfer Device 1: (bedrails/footboard/IV pole) Transfer Level of Assistance 1: Contact guard Functional Mobility: Functional Mobility Functional Mobility Performed: Yes Functional Mobility 1 Comments 1: facilitates short household distances within room at CGA>SBA with UE support on IV pole, minimally dizzy initiatlly on standing, resolves with standing rest break Vision:Vision - Basic Assessment Current Vision: Wears glasses all the time Sensation: Light Touch: No apparent deficits Strength: Strength Comments: BUE WFL Perception: Inattention/Neglect: Appears intact Initiation: Appears intact Motor Planning: Appears intact Perseveration: Not present Coordination: Movements are Fluid and Coordinated: Yes Hand Function: Gross Grasp: Functional Coordination: Functional Extremities: RUE RUE : Within Functional Limits and LUE LUE: Within Functional Limits Outcome Measures:[facility] Daily Activity Putting on and taking off regular lower body clothing: A lot Bathing (including washing, rinsing, drying): A little Putting on and taking off regular upper body clothing: A little Toileting, which includes using toilet, bedpan or urinal: A little Taking care of personal grooming such as brushing teeth: A little Eating Meals: None Daily Activity - Total Score: 18 and Brief Confusion Assessment Method (bCAM) CAM Result: CAM - Education Documentation Body Mechanics, taught by Connie Thomas OT at 10/15/2024 10:27 AM. Learner: Patient Readiness: Acceptance Method: Explanation Response: Verbalizes Understanding Comment: adaptive dressing techniques Precautions, taught by Connie Thomas OT at 10/15/2024 10:27 AM. Learner: Patient Readiness: Acceptance Method: Explanation Response: Verbalizes Understanding Comment: adaptive dressing techniques ADL Training, taught by Connie Thomas OT at 10/15/2024 10:27 AM. Learner: Patient Readiness: Acceptance Method: Explanation Response: Verbalizes Understanding Comment: adaptive dressing techniques Education Comments No comments found. Goals: Encounter Problems Encounter Problems (Active) ADLs Patient will complete daily grooming tasks with independent level of assistance and PRN adaptive equipment while standing. Start: 10/15/24 Expected End: 11/05/24 Patient will demonstrate lower body dressing with modified independent level of assistancedonning and doffing all LE clothes with PRN adaptive equipment and any adaptive techniques necessary Start: 10/15/24 Expected End: 11/05/24 BALANCE pt will demonstrate dynamic standing greater than 8 mins with 1-2 UE release at mod I in prep for cooking and bathing tasks Start: 10/15/24 Expected End: 11/05/24 MOBILITY pt will safely demonstrate functional mobility, to/from bathroom and at other household distances, navigating around environmental barriers with LRD and mod I Start: 10/15/24 Expected End: 11/05/24 10/15/24 at 10:46 AM Connie Thomas OT Rehab Office: [phone] Physical Therapy Physical Therapy Evaluation Patient Name: Kevan La Department: [place] [id number] Room: Today's Date: 10/15/2024 Time Calculation Start Time: 902 Stop Time: 915 Time Calculation (min): 13 min Assessment/Plan PT Assessment PT Assessment Results: Decreased mobility, Pain Rehab Prognosis: Good Barriers to Discharge Home: No anticipated barriers End of Session Communication: Bedside nurse Assessment Comment: Pt mobilizing well despite recent surgical procedure and immobility, will benefit from continued skilled PT to progress with gait tasks, stair navigation and possible AD use for gait safety. End of Session Patient Position: Bed, 3 rail up, Alarm off, not on at start of session IP OR SWING BED PT PLAN Inpatient or Swing Bed: Inpatient PT Plan Treatment/Interventions: Gait training, Stair training, Balance training, Therapeutic exercise, Therapeutic activity PT Plan: Ongoing PT PT Frequency: 3 times per week PT Discharge Recommendations: No PT needed after discharge Equipment Recommended upon Discharge: Other (comment) (possibly cane) PT Recommended Transfer Status: Stand by assist PT - OK to Discharge: Yes (POC/goals/discharge rec intensity created) Subjective General Visit Information: General Reason for Referral: worsening (L) gluteal wound s/p I&D 10/13 Past Medical History Relevant to Rehab: hidradenitis supprativa Co-Treatment: OT Co-Treatment Reason: due to recent high pain reports, nonamb since admission, for patient safety and tolerance to mobility for prompt discharge planning Prior to Session Communication: Bedside nurse General Comment: Pt agreeable to participate, reports has been relatively immobile since admission. Received pain meds just prior to therapy encounter. Mobilizing with CGA<-> (S), quick movements to avoid pressure on (L) buttock with transfers. Will continue to follow. Home Living: Home Living Type of Home: House Lives With: (beagle dog) Home Adaptive Equipment: None Home Layout: One level, Laundry in basement Home Access: Stairs to enter with rails Entrance Stairs-Number of Steps: 3 Home Living Comments: neighbor currently caring for dog Prior Level of Function: Prior Function Per Pt/Caregiver Report ADL Assistance: Independent Ambulatory Assistance: (community amb with AD (I)) Precautions: Precautions Hearing/Visual Limitations: wearing glasses, hearing WFL Medical Precautions: Fall precautions Objective Pain: Pain Assessment Pain Assessment: 0-10 0-10 (Numeric) Pain Score: 7 Pain Location: Buttocks Pain Orientation: Left Clinical Progression: Gradually worsening (with weightbearing and moving) Pain Interventions: Repositioned (received pain meds just prior to eval.) Response to Interventions: (appears comfortable at rest with pressure off (L) hip hip) Cognition: Cognition Arousal/Alertness: Appropriate responses to stimuli Orientation Level: Oriented X4 Following Commands: Follows one step commands consistently Impulsive: Mildly General Assessments: Activity Tolerance Activity Tolerance Comments: reports slightly woozy with upright activities Sensation Light Touch: No apparent deficits Perception Inattention/Neglect: Appears intact Initiation: Appears intact Motor Planning: Appears intact Perseveration: Not present Coordination Coordination Comment: self limits (L) hip ROM/weighbearing Static Standing Balance Static Standing-Balance Support: No upper extremity supported, Left upper extremity supported Static Standing-Level of Assistance: Contact guard, Close supervision Static Standing-Comment/Number of Minutes: no AD-> IV pole Dynamic Standing Balance Dynamic Standing-Balance Support: Left upper extremity supported Dynamic Standing-Level of Assistance: Contact guard, Close supervision Dynamic Standing-Comments: IV pole Functional Assessments: Bed Mobility Bed Mobility: (see transfers comments) Transfers Transfer: Yes Transfer 1 Transfer From 1: (supine to standing with very brief sit to EOB mostly on (R) buttock) Transfer Level of Assistance 1: Contact guard Trials/Comments 1: pt avoiding putting pressure on (L) hip/buttock, minimally completes sit at EOB prior to fully standing, though increased time to fully extend at hips/trunk for upright posture Transfers 2 Transfer From 2: (stand to supine) Transfer Level of Assistance 2: Close supervision Trials/Comments 2: pt completes with holding onto foot board and lower bed rail, (R) LE almost kneeling on bed prior to slowly lowering self mostly onto (R) side to avoid pressure on (L) hip/buttock Ambulation/Gait Training Ambulation/Gait Training Performed: Yes Ambulation/Gait Training 1 Surface 1: Level tile Device 1: IV Pole Assistance 1: Contact guard, Close supervision, Minimal verbal cues Quality of Gait 1: Antalgic, Decreased step length Comments/Distance (ft) 1: 15 ft Extremity/Trunk Assessments: RLE RLE : Within Functional Limits LLE LLE : Exceptions to WFL AROM LLE (degrees) LLE AROM Comment: appears WFL though somewhat self limits due to pain Strength LLE LLE Overall Strength: Greater than or equal to 3/5 as evidenced by functional mobility Outcome Measures: [facility] Basic Mobility Turning from your back to your side while in a flat bed without using bedrails: A little Moving from lying on your back to sitting on the side of a flat bed without using bedrails: A little Moving to and from bed to chair (including a wheelchair): A little Standing up from a chair using your arms (e.g. wheelchair or bedside chair): A little To walk in hospital room: A little Climbing 3-5 steps with railing: A little Basic Mobility - Total Score: 18 Encounter Problems Encounter Problems (Active) Balance Patient will maintain balance to allow for safe mobility with (I). Start: 10/15/24 Expected End: 10/29/24 Mobility STG - Patient will ambulate with (I), LRAD-> no assistive device 200 ft x2 Start: 10/15/24 Expected End: 10/29/24 STG - Patient will ascend and descend four to six stairs with (S). Start: 10/15/24 Expected End: 10/29/24 PT Transfers STG - Patient will transfer sit to and from stand with (I). Start: 10/15/24 Expected End: 10/29/24 Education Documentation Mobility Training, taught by Doris Guzman, PT at 10/15/2024 10:08 AM. Learner: Patient Readiness: Acceptance Method: Explanation Response: Verbalizes Understanding Comment: PT POC, possible need for AD 10/15/24 at 10:09 AM - Doris Guzman, PT [facility] SURGERY - PROGRESS NOTE Patient Name: Kevan La Admit Date: [id number] : 1975 AGE: 49 y.o. GENDER: male TODAY'S ASSESSMENT AND PLAN OF CARE: 49M with refractory HS (now on povorcitinib in clinical trial) who presents for L gluteal HS flare with concern for infection. Now s/p left thigh I&D on 10/13 with ACS. Recs: -Patient with continued purulent discharge secondary to left thigh abscess/hidradenitis -Recommend continuation of antibiotics given continued purulent discharge; appreciate ID eval for duration -Consider dermatology consultation for suppressive therapy given severe hidradenitis seen on exam -Patient likely would not benefit from additional debridements at this time due to extensive nature of disease and unlikelihood of healing more significant wound that would be required for further excision -Continue BID wet to dry dressings to left thigh -Please call with any further questions or concerns D/w Dr. Maurice Sweeney MD General Surgery - PGY1 Acute Care Surgery Service Team Pager: [phone] CHIEF COMPLAINT / EVENTS LAST 24HRS / HPI: NAEO; dressing changed with no acute complaints. Patient states pain worse this morning, though waiting for pain meds to kick in. MEDICAL HISTORY / ROS: Admission history and ROS reviewed. PHYSICAL EXAM: Heart Rate: [64-73] Temp: [36.2 C (97.2 F)-36.5 C (97.7 F)] Resp: [18] BP: (88-100)/(60-66) SpO2: [95 %-97 %] Head/Neck: NCAT Eyes: Anicteric Cardiovascular: Regular rate and rhythm per peripheral palpation Respiratory: Breathing comfortably on RA with symmetric chest rise Abdominal: Soft, non tender, non-distended without rebound or guarding : Deferred Ext: MAEx4. Left lateral thigh wound C/D/I with Kerlix packing exchanged at bedside and appropriate hemostasis visualized. Decreased purulent discharge from wound and surrounding tracts this AM Psych: Appropriate mood and affect LABS: Results from last 7 days Lab Units 10/14/24 0830 10/13/24 1943 10/13/24 1148 10/12/24 0824 WBC AUTO x10*3/uL 15.0* 24.0* 30.1* 14.6* HEMOGLOBIN g/dL 8.1* 8.3* 10.5* 9.5* HEMATOCRIT % 26.6* 25.6* 34.1* 30.8* PLATELETS AUTO x10*3/uL 561* 579* 755* 633* NEUTROS PCT AUTO % 77.9 83.9 -- 69.2 LYMPHO PCT MAN % -- -- 3.4 -- LYMPHS PCT AUTO % 13.1 8.9 -- 17.2 MONO PCT MAN % -- -- 2.6 -- MONOS PCT AUTO % 5.6 5.7 -- 9.5 EOSINO PCT MAN % -- -- 0.0 -- EOS PCT AUTO % 2.0 0.7 -- 2.5 Results from last 7 days Lab Units 10/10/24 1617 APTT seconds 32 INR 1.2* Results from last 7 days Lab Units 10/14/24 0830 10/13/24 1148 10/12/24 0824 SODIUM mmol/L 137 139 136 POTASSIUM mmol/L 3.9 4.5 4.0 CHLORIDE mmol/L 102 100 101 CO2 mmol/L 26 26 25 BUN mg/dL 15 19 16 CREATININE mg/dL 1.44* 1.84* 1.61* CALCIUM mg/dL 9.0 10.4 10.0 PROTEIN TOTAL g/dL 6.4 7.5 7.4 BILIRUBIN TOTAL mg/dL 0.2 0.4 0.3 ALK PHOS U/L 60 76 66 ALT U/L 9* 9* 8* AST U/L 6* 10 11 GLUCOSE mg/dL 163* 144* 100* Results from last 7 days Lab Units 10/14/24 0830 10/13/24 1148 10/12/24 0824 BILIRUBIN TOTAL mg/dL 0.2 0.4 0.3 Results from last 7 days Lab Units 10/13/24 1156 POCT PH, ARTERIAL pH 7.37* POCT PCO2, ARTERIAL mm Hg 42 POCT PO2, ARTERIAL mm Hg 73* POCT HCO3 CALCULATED, ARTERIAL mmol/L 24.3 POCT BASE EXCESS, ARTERIAL mmol/L -1.0 I have reviewed all medications, laboratory results, and imaging pertinent for today's encounter. Cosigned by Terrence Richards DO at 10/17/2024 9:33 PM EST Associated attestation - Terrence Richards DO - 10/17/2024 9:33 PM EST I saw and evaluated the patient. I personally obtained the gomez and critical portions of the history and physical exam or was physically present for gomez and critical portions performed by the resident/fellow. I reviewed the resident/fellow's documentation and discussed the patient with the resident/fellow. I agree with the resident/fellow's medical decision making as documented in the note. Terrence Richards DO Kevan La is a 49 y.o. male on day 4 of admission presenting with Hidradenitis suppurativa. Subjective No acute events overnight. The patient reports increased pain that woke him up at night from the I&D site. Otherwise denies pain elsewhere. Patient in no acute distress on exam. Dressing examined and was largely C/D/I except for small amount of purulent drainage at the bottom of the dressing. Objective Physical Exam HENT: Head: Normocephalic. Eyes: Conjunctiva/sclera: Conjunctivae normal. Cardiovascular: Rate and Rhythm: Normal rate and regular rhythm. Heart sounds: Normal heart sounds. Pulmonary: Effort: Pulmonary effort is normal. Breath sounds: Normal breath sounds. Abdominal: General: Abdomen is flat. There is no distension. Palpations: Abdomen is soft. Tenderness: There is no abdominal tenderness. Skin: General: Skin is warm and dry. Comments: Surgical site dressed; some purulent fluid on the bottom of the dressing Neurological: Mental Status: He is alert. Comments: Alert Speech intact Moving extremities equally Follows simple commands Last Recorded Vitals Blood pressure 88/66, pulse 64, temperature 36.4 C (97.5 F), temperature source Temporal, resp. rate 18, height 2.007 m (6' 7"), weight 101 kg (222 lb), SpO2 96%. Intake/Output last 3 Shifts: I/O last 3 completed shifts: In: 5210 (51.7 mL/kg) [P.O.:2460; I.V.:250 (2.5 mL/kg); IV Piggyback:2500] Out: 3520 (35 mL/kg) [Urine:3500 (1 mL/kg/hr); Blood:20] Weight: 100.7 kg Labs Lab Results Component Value Date WBC 15.0 (H) 10/14/2024 HGB 8.1 (L) 10/14/2024 HCT 26.6 (L) 10/14/2024 MCV 91 10/14/2024 PLT 561 (H) 10/14/2024 Lab Results Component Value Date GLUCOSE 163 (H) 10/14/2024 CALCIUM 9.0 10/14/2024 NA 137 10/14/2024 K 3.9 10/14/2024 CO2 26 10/14/2024 CL 102 10/14/2024 BUN 15 10/14/2024 CREATININE 1.44 (H) 10/14/2024 Lab Results Component Value Date CALCIUM 9.0 10/14/2024 PHOS 3.8 10/11/2024 Relevant Results Scheduled medications acetaminophen, 975 mg, oral, TID calcium carbonate, 500 mg, oral, Daily cetirizine, 10 mg, oral, Daily clindamycin, , Topical, BID heparin (porcine), 5,000 Units, subcutaneous, q8h BERNADETTE nicotine, 1 patch, transdermal, Daily piperacillin-tazobactam, 3.375 g, intravenous, q6h polyethylene glycol, 17 g, oral, Daily tiZANidine, 2 mg, oral, TID vancomycin, 750 mg, intravenous, q12h Continuous medications sodium chloride 0.9%, 100 mL/hr, Last Rate: 100 mL/hr (10/14/242026) PRN medications PRN medications: HYDROmorphone, nicotine polacrilex, oxyCODONE, vancomycin Assessment/Plan Assessment & Plan Wound infection Abscess Kevan La is a 49 y.o. male with refractory hidradenitis supprativa (HS) not responding to povorcitinib (RCT candidate), apremilast, isotretinoin, adalimumab, infliximab, moxifloxacin/metronidazole, minocyclin, clindamycin, rifampin, augmentin and doxycycline. He came to [facility] with severe HS and associated deep seated tissue infection. He had fatigue, malaise, worsening leukocytosis and pain. CT AP done showed worsening infection and tissue plane crossing compared to CT done in August. The left gluteus randell muscle is enlarged, heterogeneously enhancing with the serpiginous fluid pockets consistent with phlegmon/abscess. This measures up to 9.2 x 5.7 cm in transaxial dimension by at least 13.2 cm longitudinally. Started on IV vancomycin and Zosyn. There is risk of muscle necrosis, spreading to deeper tissue plane and sepsis. Acute care surgery took patient for incision and drainage of his L thigh on 10/13/2024. Dermatology has been consulted and are following. Appreciate recommendations. Updates 10/15: - Pain regimen adjusted: --> oxy 5mg q4h PRN moderate pain --> oxy 10mg q6h PRN severe pain --> IV dilaudid 0.4mg q4h PRN breakthrough pain - Started oral hydration solution - Follow-up Intra-Op cultures #Gluteal abscess s/p I&D 10/13 #Deep tissue infection #Refractory hidradenitis suppurativa :: C/W vancomycin and Zosyn at this time pending data from deep tissue culture --> can broaden to meropenem if patient's WBC continue to uptrend / he becomes HDUS :: CT scan finding warrants drainage / debridement and tissue sample extraction for culture and sensitivity - s/p incision and drainage on 10/13; pending tissue cultures --> Wet to dry dressing BID per surgery --> Clindamycin around wound area BID :: Prior blood cultures taken on 10/10 resulted on 10/13: --> one tube with Gram positive cocci, pairs and chains --> one tube with Staph hominis identified :: Blood cultures taken 10/13/2024 no growth at 2 days x2 :: Patient with elevated lactate overnight; improved s/p 500cc bolus; patient received another 400cc of fluid 10/14 am; lactate improved to 1.2 Plan: - Tylenol scheduled, oxycodone, dilaudid PRN for pain - Hold povorcitinib, last dose of povorcitinib 10/10 - Hold home oral iron - Keep on nicotine patch and PRN nicotine - Follow-up Intra-Op cultures - Elevated wbc likely reactive iso bacteremia from I&D will trend and if still trending up will switch Zosyn to Meropenem; WBC currently downtrending to 12.9 #Analgesic Nephropathy - Cr 1.69 on admission - assisted NSAID use for HS, most recently was on home ibuprofen - Hold home ibuprofen - UA unremarkable - CT A/P no hydronephrosis or renal abnormality - Avoid nephrotoxic drug, hypotension, sepsis, dehydration Fluid: PRN Electrolyte: PRN Diet: regular DVT prophylaxis: SCD, UFH Code status: FULL CODE NOK: Omkar Pradoclifford (brother, ) Delilah Almanza MD Neurology, PGY-1 Cosigned by Delgado Renee DO at 10/15/2024 8:24 PM EST Associated attestation - Delgado Renee DO - 10/15/2024 8:24 PM EST I saw and evaluated the patient. I personally obtained the gomez and critical portions of the history and physical exam or was physically present for gomez and critical portions performed by the resident/fellow. I reviewed the resident/fellow's documentation and discussed the patient with the resident/fellow. I agree with the resident/fellow's medical decision making as documented in the note. Principal Problem: Gluteal abscess Active Problems: Hidradenitis suppurativa Wound infection Chronic renal insufficiency Bacteremia due to Staphylococcus Abscess -ctn IV abx -agree adjust pain regimen -follow up cx -Cr seems tp be at bl if not slightly better I spent 40 minutes in professional medical decision making, [id number] examination and counseling, care coordination, chart review, discussions with consultants, and care planning Kevan La is a 49 y.o. male on day 3 of admission presenting with Hidradenitis suppurativa. Subjective Overnight, Mr. La had an increase in his lactate from 2.2 to 2.7; he received a 500cc bolus. The patient is otherwise doing well in no acute distress. He reports his only pain is the surgical site of his L thigh, however, this is controlled with his current pain regimen. Objective Physical Exam HENT: Head: Normocephalic. Eyes: Conjunctiva/sclera: Conjunctivae normal. Cardiovascular: Rate and Rhythm: Normal rate and regular rhythm. Heart sounds: Normal heart sounds. Pulmonary: Effort: Pulmonary effort is normal. Breath sounds: Normal breath sounds. Abdominal: General: Abdomen is flat. There is no distension. Palpations: Abdomen is soft. Tenderness: There is no abdominal tenderness. Skin: General: Skin is warm and dry. Comments: Surgical site dressed; some serosanguinous fluid on the bottom of the dressing Neurological: Mental Status: He is alert. Comments: Alert Speech intact Moving extremities equally Last Recorded Vitals Blood pressure 96/61, pulse 70, temperature 36.2 C (97.2 F), temperature source Temporal, resp. rate 18, height 2.007 m (6' 7"), weight 101 kg (222 lb), SpO2 97%. Intake/Output last 3 Shifts: I/O last 3 completed shifts: In: 4050 (40.2 mL/kg) [P.O.:1500; IV Piggyback:2550] Out: 2645 (26.3 mL/kg) [Urine:2625 (0.7 mL/kg/hr); Blood:20] Weight: 100.7 kg Labs Lab Results Component Value Date WBC 15.0 (H) 10/14/2024 HGB 8.1 (L) 10/14/2024 HCT 26.6 (L) 10/14/2024 MCV 91 10/14/2024 PLT 561 (H) 10/14/2024 Lab Results Component Value Date GLUCOSE 163 (H) 10/14/2024 CALCIUM 9.0 10/14/2024 NA 137 10/14/2024 K 3.9 10/14/2024 CO2 26 10/14/2024 CL 102 10/14/2024 BUN 15 10/14/2024 CREATININE 1.44 (H) 10/14/2024 Lab Results Component Value Date CALCIUM 9.0 10/14/2024 PHOS 3.8 10/11/2024 Relevant Results Scheduled medications acetaminophen, 975 mg, oral, TID cetirizine, 10 mg, oral, Daily clindamycin, , Topical, BID heparin (porcine), 5,000 Units, subcutaneous, q8h BERNADETTE nicotine, 1 patch, transdermal, Daily piperacillin-tazobactam, 3.375 g, intravenous, q6h polyethylene glycol, 17 g, oral, Daily tiZANidine, 2 mg, oral, TID vancomycin, 750 mg, intravenous, q12h Continuous medications sodium chloride 0.9%, 100 mL/hr, Last Rate: 100 mL/hr (10/14/24 0712) PRN medications PRN medications: HYDROmorphone, nicotine polacrilex, oxyCODONE, vancomycin Assessment/Plan Assessment & Plan Wound infection Abscess Kevan Kudray is a 49 y.o. male with refractory hidradenitis supprativa (HS) not responding to povorcitinib (RCT candidate), apremilast, isotretinoin, adalimumab, infliximab, moxifloxacin/metronidazole, minocyclin, clindamycin, rifampin, augmentin and doxycycline. He came to [facility] with severe HS and associated deep seated tissue infection. He had fatigue, malaise, worsening leukocytosis and pain. CT AP done showed worsening infection and tissue plane crossing compared to CT done in August. The left gluteus randell muscle is enlarged, heterogeneously enhancing with the serpiginous fluid pockets consistent with phlegmon/abscess. This measures up to 9.2 x 5.7 cm in transaxial dimension by at least 13.2 cm longitudinally. Started on IV vancomycin and Zosyn. There is risk of muscle necrosis, spreading to deeper tissue plane and sepsis. Acute care surgery took patient for incision and drainage of his L thigh on 10/13/2024. Dermatology has been consulted and are following. Appreciate recommendations. Updates 10/14: - Patient went to the OR 10/13 for incision and drainage upon arriving to the floor patient became tachycardic to the 140s blood pressures -140 systolic with no hypoxia no fever. Patient endorsed chills and denied any chest pain, nausea ,vomiting - At the OR a significant amount of pus was drained however with very little blood about 20 cc of blood. - Patient was given IV fluids a liter NS bolus on the floor, labs done CBC, CMP lactate, EKG with sinus tachycardia, blood cultures 2 sets. UA - CBC initially with elevated white count 30.1 , lactate initially 2.2 on VBG , serum lactate however 1.8 --> 10/14 cbc with improved WBC of 15; overnight lactate elevated to 2.6 --> 2.3 s/p 500cc bolus pending repeat --> C/f bacteremia from the procedure ,white count likely will trend down, blood pressures were a little soft low 90s. Pt was stable. - Continue monitoring vitals - Surgery following and wound care for twice daily dressing - Surgery with no plans for further OR procedure - Follow-up Intra-Op cultures #Gluteal abscess s/p I&D 10/13 #Deep tissue infection #Refractory hidradenitis suppurativa :: C/W vancomycin and Zosyn at this time pending data from deep tissue culture --> can broaden to meropenem if patient's WBC continue to uptrend / he becomes HDUS :: CT scan finding warrants drainage / debridement and tissue sample extraction for culture and sensitivity - s/p incision and drainage on 10/13; pending tissue cultures :: Prior blood cultures taken on 10/10 resulted on 10/13: --> one tube with Gram positive cocci, pairs and chains --> one tube with Staph hominis identified :: Blood cultures taken 10/13/2024 no growth at 1 day x2 :: Patient with elevated lactate overnight; improved s/p 500cc bolus; patient received another 400cc of fluid over 4 hours 10/14 am with plan for repeat lactate Plan: - Tylenol scheduled, oxycodone, dilaudid PRN for pain - Hold povorcitinib, last dose of povorcitinib 10/10 - Hold home oral iron - Keep on nicotine patch and PRN nicotine - Follow-up Intra-Op cultures - Elevated wbc likely reactive iso bacteremia from I&D will trend and if still trending up will switch Zosyn to Meropenem; WBC currently downtrending to 15 #Analgesic Nephropathy - Cr 1.69 on admission (1.44 on 09/13/2024) - 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 I personally obtained the gomez and critical portions of the history and physical exam or was physically present for gomez and critical portions performed by the resident/fellow. I reviewed the resident/fellow's documentation and discussed the patient with the resident/fellow. I agree with the resident/fellow's medical decision making as documented in the note. Vancomycin Dosing by Pharmacy FOLLOW UP Kevan La is a 49 y.o. male who Pharmacy is consulted to dose vancomycin for abdominal infection. Based on the patient's indication and renal status, this patient is being dosed based on a goal vancomycin AUC of 400-600. Current vancomycin dose: 750 mg every 12 hours Estimated vancomycin AUC on current dose: 416 mg/L.hr Renal function is currently stable. Estimated Creatinine Clearance: 80.4 mL/min (A) (by C-G formula based on SCr of 1.44 mg/dL (H)). Vancomycin Date Value Ref Range Status 10/14/2024 14.7 5.0 - 20.0 ug/mL Final 10/12/2024 13.6 5.0 - 20.0 ug/mL Final 09/16/2024 17.6 5.0 - 20.0 ug/mL Final 09/15/2024 18.0 5.0 - 20.0 ug/mL Final Results from last 7 days Lab Units 10/14/24 0830 10/13/24 1943 10/13/24 1148 10/12/24 0824 10/11/24 0546 CREATININE mg/dL 1.44* -- 1.84* 1.61* 1.60* BUN mg/dL 15 -- 19 16 20 WBC AUTO x10*3/uL 15.0* 24.0* 30.1* 14.6* 14.3* Visit Vitals BP 91/61 (BP Location: Right arm, Patient Position: Lying) Pulse 68 Temp 36.6 C (97.9 F) (Temporal) Resp 16 Gram Stain Date/Time Value Ref Range Status 10/13/2024 09:12 AM No polymorphonuclear leukocytes seen Preliminary 10/13/2024 09:12 AM No organisms seen Preliminary Blood Culture Date/Time Value Ref Range Status 10/13/2024 11:55 AM Loaded on Instrument - Culture in progress Preliminary Tissue/Wound Culture/Smear Date/Time Value Ref Range Status 10/13/2024 09:12 AM No growth to date Preliminary Assessment/Plan AUC is within goal range. Continue current vancomycin regimen. This dosing regimen is predicted by [employer] to result in the following pharmacokinetic parameters: Regimen: 750 mg IV every 12 hours. Start time: 12:21 on 10/14/2024 Exposure target: AUC24 (range)400-600 mg/L.hr [id number]: 425 mg/L.hr AUC24,ss: 416 mg/L.hr Probability of AUC24 > 400: 61 % Ctrough,ss: 13 mg/L Probability of Ctrough,ss > 20: 1 % The next vancomycin level will be ordered for 10/17 at AM labs, unless clinically indicated sooner. Will continue to monitor renal function daily while on vancomycin and order serum creatinine at least every 48 hours if not already ordered. Will follow for continued vancomycin needs, clinical response, and signs/symptoms of toxicity. Alberto BarclayD [facility] SURGERY - PROGRESS NOTE Patient Name: Kevan La Admit Date: [id number] : 1975 AGE: 49 y.o. GENDER: male TODAY'S ASSESSMENT AND PLAN OF CARE: 49M with refractory HS (now on povorcitinib in clinical trial) who presents for L gluteal HS flare with concern for infection. Now s/p left thigh I&D on 10/13 with ACS. Recs: -Patient with continued purulent discharge secondary to left thigh abscess/hidradenitis -Recommend continuation of antibiotics given continued purulent discharge; appreciate ID eval for duration -Consider dermatology consultation for suppressive therapy given severe hidradenitis seen on exam -Patient likely would not benefit from additional debridements at this time due to extensive nature of disease and unlikelihood of healing more significant wound that would be required for further excision -Continue BID wet to dry dressings to left thigh -Please call with any further questions or concerns D/w Dr. Maurice Chavis MD PGY-2 Gen Surg ACS [id number] CHIEF COMPLAINT / EVENTS LAST 24HRS / HPI: NAEO; dressing changed with no acute complaints. Patient states pain has significantly improved today since drainage. MEDICAL HISTORY / ROS: Admission history and ROS reviewed. PHYSICAL EXAM: Heart Rate: [68-73] Temp: [36.1 C (97 F)-36.6 C (97.9 F)] Resp: [16-18] BP: (91-111)/(60-64) SpO2: [95 %-97 %] Head/Neck: NCAT Eyes: Anicteric Cardiovascular: Regular rate and rhythm per peripheral palpation Respiratory: Breathing comfortably on RA with symmetric chest rise Abdominal: Soft, non tender, non-distended without rebound or guarding : Deferred Ext: MAEx4. Left lateral thigh wound C/D/I with Kerlix packing exchanged at bedside and appropriate hemostasis visualized. Continues to have purulent discharge from wound and surrounding tracts Psych: Appropriate mood and affect LABS: Results from last 7 days Lab Units 10/14/24 0830 10/13/24 1943 10/13/24 1148 10/12/24 0824 WBC AUTO x10*3/uL 15.0* 24.0* 30.1* 14.6* HEMOGLOBIN g/dL 8.1* 8.3* 10.5* 9.5* HEMATOCRIT % 26.6* 25.6* 34.1* 30.8* PLATELETS AUTO x10*3/uL 561* 579* 755* 633* NEUTROS PCT AUTO % 77.9 83.9 -- 69.2 LYMPHO PCT MAN % -- -- 3.4 -- LYMPHS PCT AUTO % 13.1 8.9 -- 17.2 MONO PCT MAN % -- -- 2.6 -- MONOS PCT AUTO % 5.6 5.7 -- 9.5 EOSINO PCT MAN % -- -- 0.0 -- EOS PCT AUTO % 2.0 0.7 -- 2.5 Results from last 7 days Lab Units 10/10/24 1617 APTT seconds 32 INR 1.2* Results from last 7 days Lab Units 10/14/24 0830 10/13/24 1148 10/12/24 0824 SODIUM mmol/L 137 139 136 POTASSIUM mmol/L 3.9 4.5 4.0 CHLORIDE mmol/L 102 100 101 CO2 mmol/L 26 26 25 BUN mg/dL 15 19 16 CREATININE mg/dL 1.44* 1.84* 1.61* CALCIUM mg/dL 9.0 10.4 10.0 PROTEIN TOTAL g/dL 6.4 7.5 7.4 BILIRUBIN TOTAL mg/dL 0.2 0.4 0.3 ALK PHOS U/L 60 76 66 ALT U/L 9* 9* 8* AST U/L 6* 10 11 GLUCOSE mg/dL 163* 144* 100* Results from last 7 days Lab Units 10/14/24 0830 10/13/24 1148 10/12/24 0824 BILIRUBIN TOTAL mg/dL 0.2 0.4 0.3 Results from last 7 days Lab Units 10/13/24 1156 POCT PH, ARTERIAL pH 7.37* POCT PCO2, ARTERIAL mm Hg 42 POCT PO2, ARTERIAL mm Hg 73* POCT HCO3 CALCULATED, ARTERIAL mmol/L 24.3 POCT BASE EXCESS, ARTERIAL mmol/L -1.0 I have reviewed all medications, laboratory results, and imaging pertinent for today's encounter. Cosigned by Terrence Richards DO at 10/15/2024 4:22 PM EST Associated attestation - Terrence Richards DO - 10/15/2024 4:22 PM EST I reviewed the resident/fellow's documentation and discussed the patient with the resident/fellow. I agree with the resident/fellow's medical decision making as documented in the note. Terrence Richards DO Kevan La is a 49 y.o. male on day 2 of admission presenting with Hidradenitis suppurativa. Subjective No acute events overnight, patient went to the OR for incision and drainage Objective Physical Exam Physical Exam CVS: RRR, [id number], No friction rubs Chest: B/L equal air entry ,Normal vesicular breath sound ,No crackles or wheezing Abdomen: Soft, non distended, non tender, No organomegaly.Hernial orifices intact Left gluteal area: Erythematous, multiple nodules, pits, sinuses as well as ulcer Actively discharging malodorous pus.Tender to palpation, Hip mobility restricted due to pain Neuro: Alert, oriented, follows command, Normal CN, motor and sensory exam , No abnormal movement Last Recorded Vitals Blood pressure (!) 89/48, pulse 67, temperature 36.3 C (97.3 F), resp. rate 16, height 2.007 m (6' 7"), weight 101 kg (222 lb), SpO2 98%. Intake/Output last 3 Shifts: I/O last 3 completed shifts: In: 1980 (19.7 mL/kg) [P.O.:980; IV Piggyback:1000] Out: 3375 (33.5 mL/kg) [Urine:3375 (0.9 mL/kg/hr)] Weight: 100.7 kg Labs Lab Results Component Value Date WBC 30.1 (H) 10/13/2024 HGB 10.5 (L) 10/13/2024 HCT 34.1 (L) 10/13/2024 MCV 91 10/13/2024 PLT 755 (H) 10/13/2024 Lab Results Component Value Date GLUCOSE 144 (H) 10/13/2024 CALCIUM 10.4 10/13/2024 NA 139 10/13/2024 K 4.5 10/13/2024 CO2 26 10/13/2024 CL 100 10/13/2024 BUN 19 10/13/2024 CREATININE 1.84 (H) 10/13/2024 Lab Results Component Value Date CALCIUM 10.4 10/13/2024 PHOS 3.8 10/11/2024 Relevant Results Scheduled medications acetaminophen, 975 mg, oral, TID cetirizine, 10 mg, oral, Daily clindamycin, , Topical, BID heparin (porcine), 5,000 Units, subcutaneous, q8h BERNADETTE nicotine, 1 patch, transdermal, Daily piperacillin-tazobactam, 3.375 g, intravenous, q6h polyethylene glycol, 17 g, oral, Daily sodium chloride, 1,000 mL, intravenous, Once tiZANidine, 2 mg, oral, TID vancomycin, 750 mg, intravenous, q12h Continuous medications PRN medications PRN medications: HYDROmorphone, nicotine polacrilex, oxyCODONE, vancomycin Assessment/Plan Assessment & Plan Wound infection Abscess Kevan La is a 49 y.o. male with refractory hidradenitis supprativa (HS) not responding to povorcitinib (RCT candidate), apremilast, isotretinoin, adalimumab, infliximab, moxifloxacin/metronidazole, minocyclin, clindamycin, rifampin, augmentin and doxycycline. He came to [facility] with severe HS and associated deep seated tissue infection. He had fatigue, malaise, worsening leukocytosis and pain. CT AP done showed worsening infection and tissue plane crossing compared to CT done in August. The left gluteus randell muscle is enlarged, heterogeneously enhancing with the serpiginous fluid pockets consistent with phlegmon/abscess. This measures up to 9.2 x 5.7 cm in transaxial dimension by at least 13.2 cm longitudinally. Started on IV vancomycin and Zosyn. There is risk of muscle necrosis, spreading to deeper tissue plane and sepsis. Acute care surgery consulted overnight - but they signed off - again re consulted this morning due to severity and also need for drainage / debridement and tissue sample for diagnosis of microbe not responding to antibiotics- ACS said they will re assess and intervene. Dermatology consulted. Patient is being monitored vigilantly. Patient went to the OR 10/12 for incision and drainage upon arriving to the floor patient became tachycardic to the 140s blood pressures -140 systolic with no hypoxia no fever. Patient complains of having chills and denied any chest pain, nausea ,vomiting Palpitations, lightheadedness. At the OR a significant amount of pus was drained however with very little blood about 20 cc of blood. Patient was given IV fluids a liter NS bolus on the floor, labs done CBC, CMP lactate, EKG with sinus tachycardia, blood cultures 2 sets. UA CBC with elevated white count 30.1 , lactate initially 2.2 on VBG , serum lactate however 1.8. Concerns that likely patient may have had bacteremia from the procedure ,white count likely will trend down, blood pressures were a little soft low 90s. Pt was stable. Plan is to start patients on meropenem and discontinue Zosyn, if white count still trending up and patient hemodynamically unstable -Continue monitoring vitals -Surgery following and wound care for twice daily dressing -Surgery with no plans for further OR procedure - follow-up Intra-Op cultures #Gluteal abscess s/p I$D 10/13 #Deep tissue infection #Refractory hidradenitis suppurativa - C/W vancomycin and Zosyn - Can't rely on wound culture, need data from deep tissue culture - CT scan finding warrants drainage / debridement and tissue sample extraction for culture and sensitivity - Tylenol scheduled, oxycodone, dilaudid PRN for pain - Hold povorcitinib, last dose of povorcitinib 10/10 - Hold home oral iron - Keep on nicotine patch and PRN nicotine -F follow-up IntraOp cultures -elevated wbc likely reactive iso bacteremia from I&D will trend and if still trending up will switch Zosyn to Meropenem -bld c/s 10/13-Staph hominis #Analgesic Nephropathy - Cr 1.69 on admission (1.48 on 09/12/2024) - assisted NSAID use for HS, most recently was on home ibuprofen - Hold home ibuprofen - UA unremarkable - CT A/P no hydronephrosis or renal abnormality - Avoid nephrotoxic drug, hypotension, sepsis, dehydration Fluid: PRN Electrolyte: PRN Diet: regular DVT prophylaxis: SCD, UFH Code status: FULL CODE NOK: Omkar La (brother, ) Chronic renal insufficiency Marvel Felix MD Cosigned by Gilbert Sylvester MD at 10/14/2024 8:09 AM EST Associated attestation - Nga, Gilbert Dominguez MD - 10/14/2024 8:09 AM EST I saw and evaluated the patient. I personally obtained the gomez and critical portions of the history and physical exam or was physically present for gomez and critical portions performed by the resident/fellow. I reviewed the resident/fellow's documentation and discussed the patient with the resident/fellow. I agree with the resident/fellow's medical decision making as documented in the note. 10/12/24 1621 Discharge Planning Living Arrangements Alone Support Systems None Assistance Needed Pt states he was primarily independent with ADLS prior to admission Type of Residence Private residence Who is requesting discharge planning? Provider Expected Discharge Disposition Home H Does the patient need discharge transport arranged? Yes Financial Resource Strain How hard is it for you to pay for the very basics like food, housing, medical care, and heating? Somewhat Housing Stability In the last 12 months, was there a time when you were not able to pay the mortgage or rent on time? N At any time in the past 12 months, were you homeless or living in a custodial (including now)? N Transportation Needs In the past 12 months, has lack of transportation kept you from medical appointments or from getting medications? no In the past 12 months, has lack of transportation kept you from meetings, work, or from getting things needed for daily living? No Patient Choice Provider Choice list and CMS website (https://medicare.gov/care-compar e#search) for post-acute Quality and Resource Measure Data were provided and reviewed with: Patient Intensity of Service Intensity of Service 0-30 min PCP: None-pt states he has a new PCP appt on 10/15 at 1:30pm with Sharron Flaherty at ([phone]) PHARMACY: [facility] RECENT FALLS: denies EQUIPMENT USED IN HOME: grab bars HOME O2/CPAP/NEBS: N/A TRANSPORT HOME: pt states he will drive himself home (parked in the visitor garage) CURRENT HC: N/A Address, phone and emergency contact information verified. Pt does not have insurance-made aware [facility] will notify HRS so pt can be screened to see if he qualifies for Medicaid. All questions and concerns answered. Will continue to follow for discharge needs. Medical team aware pt does not have insurance at this time. Kevan La is a 49 y.o. male on day 1 of admission presenting with Hidradenitis suppurativa. Subjective No acute events overnight, patient denies any fever, shortness of breath, chest pain. Objective Physical Exam CVS: RRR, S1S2MO, No friction rubs Chest: B/L equal air entry ,Normal vesicular breath sound ,No crackles or wheezing Abdomen: Soft, non distended, non tender, No organomegaly.Hernial orifices intact Left gluteal area: Erythematous, multiple nodules, pits, sinuses as well as ulcer Actively discharging malodorous debrisTender to palpation, Hip mobility restricted due to pain Neuro: Alert, oriented, follows command, Normal CN, motor and sensory exam , No abnormal movement Last Recorded Vitals Blood pressure 99/65, pulse 71, temperature 36.9 C (98.4 F), temperature source Temporal, resp. rate 18, height 2.007 m (6' 7"), weight 101 kg (222 lb), SpO2 95%. Intake/Output last 3 Shifts: I/O last 3 completed shifts: In: 1150 (11.4 mL/kg) [P.O.:500; IV Piggyback:650] Out: 775 (7.7 mL/kg) [Urine:775 (0.2 mL/kg/hr)] Weight: 100.7 kg Labs Lab Results Component Value Date WBC 14.6 (H) 10/12/2024 HGB 9.5 (L) 10/12/2024 HCT 30.8 (L) 10/12/2024 MCV 89 10/12/2024 PLT 633 (H) 10/12/2024 Lab Results Component Value Date GLUCOSE 100 (H) 10/12/2024 CALCIUM 10.0 10/12/2024 NA 136 10/12/2024 K 4.0 10/12/2024 CO2 25 10/12/2024 CL 101 10/12/2024 BUN 16 10/12/2024 CREATININE 1.61 (H) 10/12/2024 Lab Results Component Value Date CALCIUM 10.0 10/12/2024 PHOS 3.8 10/11/2024 Relevant Results Scheduled medications acetaminophen, 975 mg, oral, TID cetirizine, 10 mg, oral, Daily clindamycin, , Topical, BID [Held by provider] heparin (porcine), 5,000 Units, subcutaneous, q8h BERNADETTE nicotine, 1 patch, transdermal, Daily piperacillin-tazobactam, 3.375 g, intravenous, q6h polyethylene glycol, 17 g, oral, Daily tiZANidine, 2 mg, oral, TID vancomycin, 750 mg, intravenous, q12h Continuous medications PRN medications PRN medications: HYDROmorphone, nicotine polacrilex, oxyCODONE, vancomycin Assessment/Plan Assessment & Plan Wound infection Abscess Kevan La is a 49 y.o. male with refractory hidradenitis supprativa (HS) not responding to povorcitinib (RCT candidate), apremilast, isotretinoin, adalimumab, infliximab, moxifloxacin/metronidazole, minocyclin, clindamycin, rifampin, augmentin and doxycycline. He came to [facility] ED with severe HS and associated deep seated tissue infection. He had fatigue, malaise, worsening leukocytosis and pain. CT AP done showed worsening infection and tissue plane crossing compared to CT done in August. The left gluteus randell muscle is enlarged, heterogeneously enhancing with the serpiginous fluid pockets consistent with phlegmon/abscess. This measures up to 9.2 x 5.7 cm in transaxial dimension by at least 13.2 cm longitudinally. Started on IV vancomycin and Zosyn. There is risk of muscle necrosis, spreading to deeper tissue plane and sepsis. Acute care surgery consulted overnight - but they signed off - again re consulted this morning due to severity and also need for drainage / debridement and tissue sample for diagnosis of microbe not responding to antibiotics- ACS said they will re assess and intervene. Dermatology consulted. Patient is being monitored vigilantly. Update 10/12 - possible incision and drainage w/surgery today -c/w Abx, wound care #Gluteal abscess #Deep tissue infection #Refractory hidradenitis suppurativa - C/W vancomycin and Zosyn - Can't rely on wound culture, need data from deep tissue culture - CT scan finding warrants drainage / debridement and tissue sample extraction for culture and sensitivity - Tylenol scheduled, oxycodone, dilaudid PRN for pain - Hold povorcitinib, last dose of povorcitinib 10/10 - Hold home oral iron - Keep on nicotine patch and PRN nicotine -possible I&d today of gluteal abscess #Analgesic Nephropathy - Cr 1.69 on admission (1.48 on 09/12/2024) - 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 I personally obtained the gomez and critical portions of the history and physical exam or was physically present for gomez and critical portions performed by the resident/fellow. I reviewed the resident/fellow's documentation and discussed the patient with the resident/fellow. I agree with the resident/fellow's medical decision making as documented in the note. Vancomycin Dosing by Pharmacy- FOLLOW UP Kevan La is a 49 y.o. year old male who Pharmacy has been consulted for vancomycin dosing for cellulitis, skin and soft tissue. Based on the patient's indication and renal status this patient is being dosed based on a goal AUC of 400-600. Renal function is currently stable. Current vancomycin dose: 750 mg given every 12 hours Estimated vancomycin AUC on current dose: 465 mg/L.hr Visit Vitals BP 108/63 (BP Location: Right arm, Patient Position: Lying) Pulse 79 Temp 36.5 C (97.7 F) (Temporal) Resp 16 Lab Results Component Value Date CREATININE 1.61 (H) 10/12/2024 CREATININE 1.60 (H) 10/11/2024 CREATININE 1.69 (H) 10/10/2024 CREATININE 1.89 (H) 09/17/2024 Patient weight is as follows: Vitals: 10/11/24 1015 Weight: 101 kg (222 lb) Cultures: Susceptibility data for the encounter in last 14 days. Collected Specimen Info Organism 10/10/24 Blood culture from Peripheral Venipuncture Staphylococcus hominis I/O last 3 completed shifts: In: 1150 (11.4 mL/kg) [P.O.:500; IV Piggyback:650] Out: 775 (7.7 mL/kg) [Urine:775 (0.2 mL/kg/hr)] Weight: 100.7 kg I/O during current shift: I/O this shift: In: 100 [IV Piggyback:100] Out: 400 [Urine:400] Temp (24hrs), Av.8 C (98.2 F), Min:36.5 C (97.7 F), Max:37 C (98.6 F) Assessment/Plan Within goal AUC range. Continue current vancomycin regimen. This dosing regimen is predicted by [employer] to result in the following pharmacokinetic parameters: Regimen: 750 mg IV every 12 hours. Start time: 11:30 on 10/12/2024 Exposure target: AUC24 (range)400-600 mg/L.hr [id number]: 465 mg/L.hr AUC24,ss: 514 mg/L.hr Probability of AUC24 > 400: 93 % Ctrough,ss: 17.5 mg/L Probability of Ctrough,ss > 20: 28 % The next level will be obtained on 10/14/24 with AM labs. May be obtained sooner if clinically indicated. Will continue to monitor renal function daily while on vancomycin and order serum creatinine at least every 48 hours if not already ordered. Follow for continued vancomycin needs, clinical response, and signs/symptoms of toxicity. Arianna Mir PharmD [facility] C[facility] SURGERY - PROGRESS NOTE Patient Name: Kevan La Admit Date: [id number] : 1975 AGE: 49 y.o. GENDER: male TODAY'S ASSESSMENT AND PLAN OF CARE: 49M with refractory HS (now on povorcitinib in clinical trial) who presents for L gluteal HS flare with concern for infection. We re-reviewed the CT scan, which shows a fluid collection extending into gluteus that would be amenable to further drainage and debridement. Patient would like to discuss with family prior to consenting for procedure. Will add on for the OR this weekend. Please ensure NPO @ MN and we will consent in AM. [facility] [id number] CHIEF COMPLAINT / EVENTS LAST 24HRS / HPI: 49M with PMH of hidradenitis suppurativa (failed multiple lines of systemic therapy, currently enrolled in clinical trial of povorcitinib) who presents to ED for concern for infection. Patient reports that he has been doing okay but recently started noticing increased fatigue, which he describes as requiring a 20 minute nap after going out to buy groceries. Denies any new fevers or chills but reports one episode of emesis on Monday. States that he wanted to pack a wound on his gluteus but was unable to physically reach it to do so. Reports hidradenitis exclusive to gluteal area, denies inguinal or perineal or axillary disease. Per chart review, patient has had a longstanding hx of HS and has failed multiple antibiotic and biologic agents. He is followed by dermatology and ID. He was recently seen for similar complaints on 09/13, during which he was discharged with wound care recommendations and did not require surgery. MEDICAL HISTORY / ROS: Admission history and ROS reviewed. PHYSICAL EXAM: Heart Rate: [65-84] Temperature: [36.7 C (98 F)-37 C (98.6 F)] Respirations: [16-20] BP: (84-133)/(53-85) Height: [200.7 cm (6' 7")] Weight: [101 kg (222 lb)] Pulse Ox: [93 %-98 %] Physical Exam Neurological: Awake, alert, conversive Respiratory/Thorax: even, unlabored Gastrointestinal: soft, NT, ND. Incision well approximated. Skin: warm, dry Musculoskeletal: Large posterior left thigh wound with multiple areas and sinus tracts draining Eyes: non-icteric Extremities: no edema Psychological: appropriate mood/affect LABS: Results from last 7 days Lab Units 10/11/24 0546 10/10/24 1617 WBC AUTO x10*3/uL 14.3* 17.5* HEMOGLOBIN g/dL 9.6* 10.5* HEMATOCRIT % 28.7* 31.9* PLATELETS AUTO x10*3/uL 650* 721* NEUTROS PCT AUTO % 60.8 71.1 LYMPHS PCT AUTO % 23.6 15.6 MONOS PCT AUTO % 11.3 9.1 EOS PCT AUTO % 2.7 1.4 Results from last 7 days Lab Units 10/10/24 1617 APTT seconds 32 INR 1.2* Results from last 7 days Lab Units 10/11/24 0546 10/10/24 1617 SODIUM mmol/L 138 139 POTASSIUM mmol/L 4.1 4.1 CHLORIDE mmol/L 106 104 CO2 mmol/L 24 23 BUN mg/dL 20 21 CREATININE mg/dL 1.60* 1.69* CALCIUM mg/dL 9.4 10.4 PROTEIN TOTAL g/dL -- 7.9 BILIRUBIN TOTAL mg/dL -- 0.2 ALK PHOS U/L -- 79 ALT U/L -- 14 AST U/L -- 9 GLUCOSE mg/dL 79 105* Results from last 7 days Lab Units 10/10/24 1617 BILIRUBIN TOTAL mg/dL 0.2 I have reviewed all medications, laboratory results, and imaging pertinent for today's encounter. Cosigned by Momo Dougherty MD at 10/11/2024 9:02 PM EST Associated attestation - Momo Dougherty MD - 10/11/2024 9:02 PM EST I saw and examined the patient. I discussed the patient's care with the resident/BRITTNEY team. I agree with the note with the additions/clarifications below. 49 yo male with chronic left thigh/hip hidradenitis with deep abscess/myositis. Reports worsening pain in the left thigh. Is able to walk and extended and flex at the knee but some pain. On exam, numerous areas of porous drainage from the left thigh with chronic inflammatory changes and one deeper area with associated tenderness. Some pus from these sites. CT scan showed: Left gluteal skin thickening and ulceration, with phlegmon and fluid extending from the skin abnormality into the gluteus randell muscle. Large area of phlegmon/abscess within the gluteus randell as detailed above. I discussed that the deep abscess can be drained through a large and deep incision in the thigh. This should help with infection control although the wound may not heal or may take a prolonged time to heal. Will clarify with medical/derm/ID teams about wound and patient will think about his options. Kevan La is a 49 y.o. male on day 0 of admission presenting with Hidradenitis suppurativa. Subjective Patient was crying in pain, asking for pain medications. His movements were severely restricted. Objective Vitals: 10/11/24 0700 BP: 103/62 Pulse: 77 Resp: 16 Temp: SpO2: 96% Physical exam: Left gluteal area: - Erythematous, multiple nodules, pits, sinuses as well as ulcer - Actively discharging malodorous debris - Tender to palpation - Hip mobility restricted due to pain CVS: - RRR - S1S2MO - No friction rubs Chest: - B/L equal air entry - Normal vesicular breath sound - No crackles or wheezing Abdomen: - Soft, non distended, non tender - No organomegaly - Hernial orifices intact Neuro: - Alert, oriented, follows command - Normal CN, motor and sensory exam - No abnormal movement Labs: Most recent labs: Results from last 7 days Lab Units 10/11/24 0546 10/10/24 1617 WBC AUTO x10*3/uL 14.3* 17.5* HEMOGLOBIN g/dL 9.6* 10.5* HEMATOCRIT % 28.7* 31.9* PLATELETS AUTO x10*3/uL 650* 721* Results from last 7 days Lab Units 10/11/24 0546 10/10/24 1617 SODIUM mmol/L 138 139 POTASSIUM mmol/L 4.1 4.1 CHLORIDE mmol/L 106 104 CO2 mmol/L 24 23 ANION GAP mmol/L 12 16 BUN mg/dL 20 21 CREATININE mg/dL 1.60* 1.69* GLUCOSE mg/dL 79 105* CALCIUM mg/dL 9.4 10.4 MAGNESIUM mg/dL 2.19 -- PHOSPHORUS mg/dL 3.8 -- Results from last 7 days Lab Units 10/10/24 1617 ALT U/L 14 AST U/L 9 ALK PHOS U/L 79 Results from last 7 days Lab Units 10/10/24 1617 INR 1.2* Results from last 7 days Lab Units 10/10/24 1610 FIO2 % 21 Results from last 7 days Lab Units 10/10/24 1610 POCT PH, VENOUS pH 7.43 POCT PCO2, VENOUS mm Hg 38* 09/12 CT AP With IV contrast: Subcutaneous edema and subcutaneous emphysema of the left buttock extending along the posterior left thigh. Extension of fluid into the posterior deep intramuscular fascia of the posterior left thigh. No focal drainable fluid collection. 09/13 CT AP With IV contrast: There is marked skin thickening with within the left lower gluteal soft tissues which extends into the proximal left thigh with underlying subcutaneous stranding. There is a 2.0 x 1.2 cm x 1.2 cm focal ulceration along the left posteroinferior gluteal soft tissues (series 201, image 155). The soft tissue at fluid tract extends from the skin/subcutaneous abnormality into the left gluteus randell muscle. The muscle is enlarged, heterogeneously enhancing with the serpiginous fluid pockets consistent with phlegmon/abscess. This measures up to 9.2 x 5.7 cm in transaxial dimension by at least 13.2 cm longitudinally. No soft tissue gas. No infiltration of the intramuscular fascia within the proximal left thigh. Assessment & Plan Kevan La is a 49 y.o. male with refractory hidradenitis supprativa (HS) not responding to povorcitinib (RCT candidate), apremilast, isotretinoin, adalimumab, infliximab, moxifloxacin/metronidazole, minocyclin, clindamycin, rifampin, augmentin and doxycycline. He came to [facility] with severe HS and associated deep seated tissue infection. He had fatigue, malaise, worsening leukocytosis and pain. CT AP done showed worsening infection and tissue plane crossing compared to CT done in August. The left gluteus randell muscle is enlarged, heterogeneously enhancing with the serpiginous fluid pockets consistent with phlegmon/abscess. This measures up to 9.2 x 5.7 cm in transaxial dimension by at least 13.2 cm longitudinally. Started on IV vancomycin and Zosyn. There is risk of muscle necrosis, spreading to deeper tissue plane and sepsis. Acute care surgery consulted overnight - but they signed off - again re consulted this morning due to severity and also need for drainage / debridement and tissue sample for diagnosis of microbe not responding to antibiotics- ACS said they will re assess and intervene. Dermatology consulted. Patient is being monitored vigilantly. #Gluteal abscess #Deep tissue infection #Refractory hidradenitis suppurativa - C/W vancomycin and Zosyn - Can't rely on wound culture, need data from deep tissue culture - CT scan finding warrants drainage / debridement and tissue sample extraction for culture and sensitivity - Tylenol scheduled, oxycodone, dilaudid PRN for pain - Hold povorcitinib, last dose of povorcitinib 10/10 - Hold home oral iron - Keep on nicotine patch and PRN nicotine #Analgesic Nephropathy - Cr 1.69 on admission (1.48 on 09/12/2024) - assisted NSAID use for HS, most recently was on home ibuprofen - Hold home ibuprofen - UA unremarkable - CT A/P no hydronephrosis or renal abnormality - Avoid nephrotoxic drug, hypotension, sepsis, dehydration Fluid: PRN Electrolyte: PRN Diet: regular DVT prophylaxis: SCD, UFH Code status: FULL CODE NOK: Omkar La (brother, ) Carlos Manuel Rader MD PGY-1 Neurology Cosigned by Gilbert Sylvester MD at 10/12/2024 8:07 AM EST Associated attestation - Gilbert Sylvester MD - 10/12/2024 8:07 AM EST I saw and evaluated the patient. I personally obtained the gomez and critical portions of the history and physical exam or was physically present for gomez and critical portions performed by the resident/fellow. I reviewed the resident/fellow's documentation and discussed the patient with the resident/fellow. I agree with the resident/fellow's medical decision making as documented in the note. Pharmacy Medication History Review Kevan La is a 49 y.o. male admitted for Hidradenitis suppurativa. Pharmacy reviewed the patient's [id number] medications and allergies for accuracy. Medications ADDED: Ibuprofen Ferrous sulfate Vitamin D3 Medications CHANGED: none Medications REMOVED: none The list below reflects the updated QUALITY OFFICER list. Prior to Admission Medications Prescriptions Last Dose Informant Study STOP-HS1 [id number] povorcitinib 45mg or 75mg tablet 10/10/2024 Morning Self Sig: Take 1 tablet by mouth once daily. Preferably in the morning, with a full glass of water. acetaminophen (Tylenol) 325 mg tablet Not Taking Self Sig: Take 3 tablets (975 mg) by mouth every 8 hours. Patient not taking: Reported on 10/11/2024-- does not help with pain amoxicillin-pot clavulanate (Augmentin) 875-125 mg tablet Not Taking Sig: Take 1 tablet by mouth 2 times a day for 21 days. Patient not taking: Reported on 10/11/2024--- was told to stop taking cholecalciferol, vitamin D3, (VITAMIN D3 ORAL) 10/10/2024 Self Sig: Take 10,000 Units by mouth once daily. clindamycin (Cleocin T) 1 % lotion 10/10/2024 Morning Self Sig: Apply topically 2 times a day. --> only applies on time with dressing change doxycycline (Vibra-Tabs) 100 mg tablet 10/10/2024 Morning Self Sig: Take 1 tablet (100 mg) by mouth 2 times a day. Take with a full glass of water and do not lie down for at least 30 minutes after. ferrous sulfate 325 (65 Fe) MG EC tablet 10/10/2024 Self Sig: Take 1 tablet by mouth once daily with breakfast. Do not crush, chew, or split. ibuprofen 200 mg tablet 10/10/2024 Self Sig: Take 3 tablets (600 mg) by mouth every 8 hours if needed for mild pain (1 - 3). nicotine polacrilex (Nicorette) 2 mg gum Not Taking Self Sig: Chew 1 each (2 mg) every 2 hours if needed for smoking cessation. Patient not taking: Reported on 10/11/2024---makes him feel ill ondansetron ODT (Zofran-ODT) 4 mg disintegrating tablet Not Taking Self Sig: Dissolve 1 tablet (4 mg) in the mouth every 8 hours if needed for nausea. Patient not taking: Reported on 10/11/2024 polyethylene glycol (Glycolax, Miralax) 17 gram packet Not Taking Self Sig: Take 17 g by mouth once daily. Patient not taking: Reported on 10/11/2024 varenicline (Chantix) 1 mg tablet 10/10/2024 Morning Self Sig: Take 0.5 tablets (0.5 mg) by mouth 2 times a day for 4 days, THEN 1 tablet (1 mg) 2 times a day. Do not start before September 18, 2024. ---currently taking 1 whole tablet BID Facility-Administered Medications: None The list below reflects the updated allergy list. Please review each documented allergy for additional clarification and justification. Allergies Reviewed by Connie Choi, PharmD on 10/11/2024 No Known Allergies Patient accepts M2B at discharge. Sources: [facility] Pharmacy dispense history Patient interview Moderate historian Chart Review ID note from 09/24 Dermatology note from 09/30 Care Everywhere Additional Comments: Pt states that many pain medications are ineffective would like something prior to being discharge Connie Choi PharmD Transitions of Care Pharmacist 10/11/24 Secure Chat preferred If no response call [phone] or Vocera "Med Rec" Kevan La is a 49 y.o. male on day 0 of admission presenting with Hidradenitis suppurativa. TCC reviewed chart before seeing patient. TCC introduced self and role in care. Patient reports living in single family home alone with pet dog. Dog is being cared for by neighbors. Patient denies having any support. He reports before having wound he was independent for all ADLs but since having wound he tires easily. He needs to take a break between bringing groceries into the house and putting them up and doing a load of laundry is exhausting. He does report that he is currently jobless and he was told that he was approved for Medicaid but has not received follow-up since. TCC to confirm insurance information and give resources for bill assistance. TCC will continue to follow patient for discharge planning. MIGUEL Sheppard documented in this encounter [facility] Work Phone: 10-21-2024 Hospital Discharge instructions Delilah Almanza MD - 10/21/2024 10:54 AM EST Mr. La, You were admitted for hidradenitis supprativa that was not responding to your treatment. You were found to have a deep tissue infection and underwent and incision and drainage with surgery. Dermatology and surgery have both been following you while you have been in the hospital as has infectious disease. You had a PICC line (line in you right arm) placed so that you can continue to have your antibiotics administered outside of the hospital. You are currently recommended to take IV Unasyn 3g every 6 hours. It is also recommended you continue to have Clindamycin cream applied to the skin around your incision and drainage site, but not on the actual surgical site. You should continue to have twice per day dressing changes as well. We would like for you to continue to hold HS-301 trial medication until you follow up with dermatology on 11/12/2024 per dermatology recommendations. You can continue your Chantix taper, iron supplement, and vitamin D. Please stop taking your Ibuprofen. You can take Tylenol as you need it for pain. We are sending you with a 5 day prescription of oxycodone to help manage your post operative pain after your incision and drainage. Follow up: - Please follow up with dermatology on 11/12/2024 Thank you for letting us take part in your care! - [facility] documented in this encounter [facility] Work Phone: 10-18-2024 Consult note Associated Order (s): PHARMACY TO DOSE VANCO Vancomycin Dosing by Pharmacy- INITIAL Kevan La is a 49 y.o. year old male who Pharmacy has been consulted for vancomycin dosing for cellulitis, skin and soft tissue. Based on the patient's indication and renal status this patient will be dosed based on a goal AUC of 400-600. Renal function is currently stable. Visit Vitals BP 94/55 (BP Location: Left arm, Patient Position: Lying) Pulse 71 Temp 36.5 C (97.7 F) (Temporal) Resp 18 Lab Results Component Value Date CREATININE 1.72 (H) 10/18/2024 CREATININE 1.62 (H) 10/17/2024 CREATININE 1.62 (H) 10/17/2024 CREATININE 1.50 (H) 10/16/2024 Patient weight is as follows: Vitals: 10/11/24 1015 Weight: 101 kg (222 lb) Cultures: Susceptibility data for the encounter in last 14 days. Collected Specimen Info Organism Ampicillin/Sulbactam Ceftriaxone Clindamycin Meropenem Penicillin 10/13/24 Swab from ABSCESS Mixed Anaerobic Bacteria Mixed Gram-Positive and Gram-Negative Bacteria 10/11/24 Tissue/Biopsy from Other (specify in comments) Mixed Anaerobic Bacteria Mixed Gram-Positive and Gram-Negative Bacteria 10/10/24 Blood culture from Peripheral Venipuncture Marta puentesa S S S S S 10/10/24 Blood culture from Peripheral Venipuncture Staphylococcus hominis I/O last 3 completed shifts: In: 1798 (17.9 mL/kg) [P.O.:1298; IV Piggyback:500] Out: 3775 (37.5 mL/kg) [Urine:3775 (1 mL/kg/hr)] Weight: 100.7 kg I/O during current shift: I/O this shift: In: - Out: 300 [Urine:300] Temp (24hrs), Av.6 C (97.8 F), Min:36.5 C (97.7 F), Max:36.7 C (98.1 F) Assessment/Plan Patient will not be given a loading dose.Patient was previously on vancomycin until it was discontinued yesterday (10/17/24). Will re-initiate vancomycin maintenance, 750 mg every 12 hours. This dosing regimen is predicted by [employer] to result in the following pharmacokinetic parameters: Loading dose: N/A Regimen: 750 mg IV every 12 hours. Start time: 17:48 on 10/18/2024 Exposure target: AUC24 (range)400-600 mg/L.hr [id number]: 413 mg/L.hr AUC24,ss: 458 mg/L.hr Probability of AUC24 > 400: 91 % Ctrough,ss: 15.3 mg/L Probability of Ctrough,ss > 20: 1 % Follow-up level will be ordered on 10/19/24 at 1000 unless clinically indicated sooner. Will continue to monitor renal function daily while on vancomycin and order serum creatinine at least every 48 hours if not already ordered. Follow for continued vancomycin needs, clinical response, and signs/symptoms of toxicity. Cristiana Torres PharmD Associated Order(s): Inpatient consult to Infectious Diseases Inpatient consult to Infectious Diseases Consult performed by: Ivette Pina MD Consult ordered by: Delgado Renee DO Primary MD: No primary care provider on file. Reason For Consult: Patient with resistant hidradenitis supprativa; blood cultures with staph hominis and Slackia exigua; pending tissue culture final results History Of Present Illness Kevan La is a 49-year-old male with past medical history of CVA hidradenitis suppurativa-on left buttock and gluteal fold, on STOP HS-301 trial (povorcitinib, small molecule checkpoint inhibitor), presented on 09/2021 [facility] with a complaint of fatigue and weakness and worsening of left gluteal wound. Patient was recently admitted from 09/13 - 09/17 for worsening left gluteal wound. CT abdomen and pelvis with contrast showed subcutaneous edema and subcutaneous emphysema of the left buttock extending along the posterior left thigh along with extension of fluid into the posterior deep intramuscular fascia of the posterior left thigh. Patient was started on vancomycin and Zosyn and was seen by dermatology and paused his drug drug. Surgery was also consulted and patient was not recommended any surgical interventions. Patient was on infectious disease service and was discharged on Augmentin for 3 weeks. After discharge patient had a telephone follow-up with ID on 09/24 and as per the conversation wound was doing better. He was told to continue Augmentin till he sees dermatology. He had another telephone follow-up on 10/07 and patient was complaining of nausea which had improved. Patient also reported that he was having a hard time with wound care. Attempts were made to put in a home care referral but patient is not homebound. Patient was instructed that if he is unable to find access to care, and if the wound deteriorates he may need to return to the ER. Patient then presented on 10/10 with significant left gluteal pain, increased drainage of "yellow-white" fluid from the wound on the buttock and difficulty taking care of the wound overall and feeling unwell. Patient also endorsed nausea and chills. Patient has been washing his wounds with a purple solution, and has been applying clindamycin 1% lotion but has been unable to pack his wounds. On presentation patient was vitally stable, was afebrile. On examination was noted to have diffuse pockets of fluctuance of the left gluteal area, concerning for an abscess. Area was also tender to palpation. Labs were notable for leukocytosis of 17.5 with neutrophilic predominance (versus 12.3 on 09/17). CT pelvis showed left gluteal skin thickening and ulceration with phlegmon and fluid extending from the skin abnormality into the gluteus randell muscle, and large area of phlegmon/abscess within the gluteus randell without any evidence of osteomyelitis. Patient was started on IV vancomycin and Zosyn. Dermatology was consulted and has been on board and agreed with the primary team's plan. General surgery was consulted and patient is now s/p I/D on 10/13. Intraoperatively patient was found to have significant purulence and the area was irrigated. Cultures were sent. Surgery did mention that patient will not benefit from further debridement due to extensive nature of the disease and likelihood of healing or significant wound that would be required for further excision. Tissue/wound culture grew 4+ abundant mixed gram-positive, gram-negative bacteria and 4+ any mixed anaerobic bacteria. Blood cultures from 10/10 grew Slackia Exigua and Staph hominis and ID was consulted for further recommendations. HS History: He reports a history of HS from 2016. Previous therapies include doxycycline, minocycline, isotretinoin, clindamycin/rifampin, Humira, Remicade, staph decolonization for mupirocin, moxifloxacin/metronidazole, and apremilast. He was being treated by [facility]. Pt reports that he has been on multiple therapies and was not able to list all the medications he has previously tried. In 11/2023, he was started on clinical trial STOP HS-301 with povortcitinib, small molecule JAK1 inhibitor. Past Medical History He has no past medical history on file. Surgical History He has no past surgical history on file. Social History Occupational History Not on file Tobacco Use Smoking status: Every Day Current packs/day: 1.00 Average packs/day: 1 pack/day for 38.1 years (38.1 ttl pk-yrs) Types: Cigarettes Start date: 1986 Smokeless tobacco: Never Vaping Use Vaping status: Never Used Substance and Sexual Activity Alcohol use: Not on file Drug use: Never Sexual activity: Not on file Travel History Travel since 09/16/24 No documented travel since 09/16/24 Family History No family history on file. Allergies Patient has no known allergies. There is no immunization history on file for this patient. Medications Home medications: Medications Prior to Admission Medication Sig Dispense Refill Last Dose/Taking cholecalciferol, vitamin D3, (VITAMIN D3 ORAL) Take 10,000 Units by mouth once daily. 10/10/2024 clindamycin (Cleocin T) 1 % lotion Apply topically 2 times a day. 60 mL 0 10/10/2024 Morning doxycycline (Vibra-Tabs) 100 mg tablet Take 1 tablet (100 mg) by mouth 2 times a day. Take with a full glass of water and do not lie down for at least 30 minutes after. 60 tablet 0 10/10/2024 Morning ferrous sulfate 325 (65 Fe) MG EC tablet Take 1 tablet by mouth once daily with breakfast. Do not crush, chew, or split. 10/10/2024 ibuprofen 200 mg tablet Take 3 tablets (600 mg) by mouth every 8 hours if needed for mild pain (1 - 3). 10/10/2024 Study STOP-HS1 [id number] povorcitinib 45mg or 75mg tablet Take 1 tablet by mouth once daily. Preferably in the morning, with a full glass of water. 31 tablet 0 10/10/2024 Morning varenicline (Chantix) 1 mg tablet Take 0.5 tablets (0.5 mg) by mouth 2 times a day for 4 days, THEN 1 tablet (1 mg) 2 times a day. Do not start before September 18, 2024. 158 tablet 0 10/10/2024 Morning acetaminophen (Tylenol) 325 mg tablet Take 3 tablets (975 mg) by mouth every 8 hours. (Patient not taking: Reported on 10/11/2024) 270 tablet 0 Not Taking [] amoxicillin-pot clavulanate (Augmentin) 875-125 mg tablet Take 1 tablet by mouth 2 times a day for 21 days. (Patient not taking: Reported on 10/11/2024) 42 tablet 0 Not Taking nicotine polacrilex (Nicorette) 2 mg gum Chew 1 each (2 mg) every 2 hours if needed for smoking cessation. (Patient not taking: Reported on 10/11/2024) 100 each 0 Not Taking ondansetron ODT (Zofran-ODT) 4 mg disintegrating tablet Dissolve 1 tablet (4 mg) in the mouth every 8 hours if needed for nausea. (Patient not taking: Reported on 10/11/2024) 20 tablet 0 Not Taking polyethylene glycol (Glycolax, Miralax) 17 gram packet Take 17 g by mouth once daily. (Patient not taking: Reported on 10/11/2024) 30 packet 0 Not Taking Study STOP-HS1 [id number] povorcitinib 45mg or 75mg tablet Take 1 tablet by mouth once daily. Preferably in the morning, with a full glass of water. 31 tablet 0 Study STOP-HS1 [id number] povorcitinib 45mg or 75mg tablet Take 1 tablet by mouth once daily. Preferably in the morning, with a full glass of water. 31 tablet 0 Study STOP-HS1 [id number] povorcitinib 45mg or 75mg tablet Take 1 tablet by mouth once daily. Preferably in the morning, with a full glass of water. 62 tablet 0 Study STOP-HS1 [id number] povorcitinib 45mg or 75mg tablet Take 1 tablet by mouth once daily. Preferably in the morning, with a full glass of water. 62 tablet 0 Study STOP-HS1 [id number] povorcitinib 45mg or 75mg tablet Take 1 tablet by mouth once daily. Preferably in the morning, with a full glass of water. 62 tablet 0 Study STOP-HS1 [id number] povorcitinib 45mg or 75mg tablet Take 1 tablet by mouth once daily. Preferably in the morning, with a full glass of water. 62 tablet 0 Study STOP-HS1 [id number] povorcitinib 45mg, 75mg or placebo tablet Take 1 tablet by mouth once daily. Preferably in the morning, with a full glass of water. 31 tablet 0 Study STOP-HS1 [id number] povorcitinib 45mg, 75mg or placebo tablet Take 1 tablet by mouth once daily. Preferably in the morning, with a full glass of water. 31 tablet 0 Study STOP-HS1 [id number] povorcitinib 45mg, 75mg or placebo tablet Take 1 tablet by mouth once daily. Preferably in the morning, with a full glass of water. 31 tablet 0 Study STOP-HS1 [id number] povorcitinib 45mg, 75mg or placebo tablet Take 1 tablet by mouth once daily. Preferably in the morning, with a full glass of water. 31 tablet 0 Current medications: Scheduled medications acetaminophen, 975 mg, oral, TID calcium carbonate, 500 mg, oral, Daily cetirizine, 10 mg, oral, Daily clindamycin, , Topical, BID heparin (porcine), 5,000 Units, subcutaneous, q8h BERNADETTE nicotine, 1 patch, transdermal, Daily piperacillin-tazobactam, 3.375 g, intravenous, q6h polyethylene glycol, 17 g, oral, Daily tiZANidine, 2 mg, oral, TID vancomycin, 750 mg, intravenous, q12h Continuous medications PRN medications PRN medications: HYDROmorphone, nicotine polacrilex, oxyCODONE, oxyCODONE, vancomycin Review of Systems Negative except as above Objective Range of Vitals (last 24 hours) Heart Rate: [63-81] Temp: [36 C (96.8 F)-36.6 C (97.9 F)] Resp: [16-18] BP: (94-105)/(55-63) SpO2: [96 %-98 %] Daily Weight 10/11/24 : 101 kg (222 lb) Body mass index is 25.01 kg/m . Physical Exam General: Patient is laying in bed, in no acute distress. HEENT: Anicteric sclera, no conjunctival pallor. No oral sores/ulcers. Edentulous mouth. CVS: S1/S2 audible, no M/G/R. Resp: Breathing comfortably on RA. Normal vesicular breathing. No wheezing, crackles or rhonchi auscultated. Abd: Non distended, non tender, no organomegaly was appreciated. +BS. ENVIRONMENTAL PLANNER: AAO x4. No gross focal deficits appreciated. MSK/Skin: L lateral thigh is dressed with an ABD. Removed dressing and observed open sinuses draining yellow colored seropurulent drainage. Large open area seen on the upper thigh which is packed with Kerlix. Relevant Results Outside Hospital Results Yes - Labs Results from last 72 hours Lab Units 10/16/24 0450 10/15/24 0836 WBC AUTO x10*3/uL 14.4* 12.9* HEMOGLOBIN g/dL 8.9* 9.2* HEMATOCRIT % 27.8* 29.1* PLATELETS AUTO x10*3/uL 633* 635* NEUTROS PCT AUTO % 70.2 66.4 LYMPHS PCT AUTO % 17.6 21.4 MONOS PCT AUTO % 7.5 7.6 EOS PCT AUTO % 2.8 3.1 Results from last 72 hours Lab Units 10/17/24 0811 10/16/24 0732 10/15/24 0836 SODIUM mmol/L 138 138 138 POTASSIUM mmol/L 5.6* 4.3 4.0 CHLORIDE mmol/L 103 103 102 CO2 mmol/L 25 26 27 BUN mg/dL 14 12 10 CREATININE mg/dL 1.62* 1.50* 1.53* GLUCOSE mg/dL 91 104* 94 CALCIUM mg/dL 10.2 10.0 9.5 ANION GAP mmol/L 16 13 13 EGFR mL/min/1.73m*2 51* 56* 55* PHOSPHORUS mg/dL 4.1 3.2 2.5 Results from last 72 hours Lab Units 10/17/24 0811 10/16/24 0732 10/15/24 0836 ALK PHOS U/L 62 60 60 BILIRUBIN TOTAL mg/dL 0.3 0.2 0.2 PROTEIN TOTAL g/dL 7.3 7.2 6.9 ALT U/L 11 10 9* AST U/L 35 11 9 ALBUMIN g/dL 3.4 3.4 3.3* Estimated Creatinine Clearance: 71.5 mL/min (A) (by C-G formula based on SCr of 1.62 mg/dL (H)). C-Reactive Protein Date Value Ref Range Status 10/10/2024 7.72 (H) <1.00 mg/dL Final Sedimentation Rate Date Value Ref Range Status 10/10/2024 >130 (H) 0 - 20 mm/h Final No results found for: "HIV1X2", "HIVCONF", "[id number]" No results found for: "HEPCABINIT", "HEPCAB", HCVPCRQUANT Microbiology Susceptibility data from last 90 days. Collected Specimen Info Organism 10/13/24 Swab from ABSCESS Mixed Anaerobic Bacteria Mixed Gram-Positive and Gram-Negative Bacteria 10/11/24 Tissue/Biopsy from Other (specify in comments) Mixed Anaerobic Bacteria Mixed Gram-Positive and Gram-Negative Bacteria 10/10/24 Blood culture from Peripheral Venipuncture Slackia exigua 10/10/24 Blood culture from Peripheral Venipuncture Staphylococcus hominis 09/14/24 Tissue/Biopsy from Skin Lesion Mixed Skin Microorganisms Mixed Anaerobic Bacteria 09/14/24 Tissue/Biopsy from Wound/Tissue Mixed Aerobic and Anaerobic Bacteria 09/13/24 Tissue/Biopsy from Skin/Superficial Abscess Mixed Aerobic and Anaerobic Bacteria Imaging CT Pelvis: 10/10/2024: IMPRESSION: 1. Left gluteal skin thickening and ulceration, with phlegmon and fluid extending from the skin abnormality into the gluteus randell muscle. Large area of phlegmon/abscess within the gluteus randell as detailed above. 2. No evidence of osteomyelitis. Micro: 10/10: Blood Cx: Slackia Exugia in anaerobic bottle, Staph hominis in another set. 10/11: Tissue/Wound Cx: 4+ Abundant mixed gram positive and gram negative bacteria, 4+ Abundant Mixed anaerobic bacteria. 10/13: Tissue/Wound Cx: 1+ Rare Mixed Anaerobic Bacteria, 1+ Rare Mixed gram positive and gram negative bacteria. 10/13: Blood Cx: NGTD Antibiotics: Zosyn: 10/10 - p Vancomycin: 10/10 - p Assessment/Plan 49-year-old male with a history of hidradenitis suppurativa on povorcitinib trial, presenting with recurrent left gluteal wound infection, now post-I&D on 10/13 with OR cultures growing mixed aerobic and anaerobic organisms and blood cultures growing Slackia exigua (an obligate anaerobe) and Staph hominis. Given that he had a fever, persistent leukocytosis (17.5), we would prefer to treat Slackia exigua despite its uncertain pathogenicity. Recommend discontinuing vancomycin and continuing piperacillin-tazobactam, which provides broad coverage and will also cover the gluteal abscess. Clinical Impression: Refractory Hidradenitis Suppurativa, L Gluteal Abscess, Slackia Exugia Bacteremia Recommendations: Discontinue IV Vancomycin. Continue IV PipTazo for now. Will tentatively require 2 weeks of IV PipTazo for bacteremia and gluteal abscess. Can place a midline. Will monitor clinically. Plan was discussed with ID attending Dr Duran We will continue to follow the patient. Ivette Pina MD PGY5, ID Fellow. For new consults, contact pager [phone]. [employer] preferred. I spent 45 minutes in the professional and overall care of this patient. Ivette Pina MD Cosigned by Daylin Hernandez MD at 10/18/2024 12:41 PM EST Associated attestation - Daylin Duran MD - 10/18/2024 12:41 PM EST I saw and evaluated the patient. I personally obtained the gomez and critical portions of the history and physical exam or was physically present for gomez and critical portions performed by the resident/fellow. I reviewed the resident/fellow's documentation and discussed the patient with the resident/fellow. I agree with the resident/fellow's medical decision making as documented in the note. Daylin Duran MD (please reach through [employer] Infectious Diseases, Senior Attending Physician Nutrition Assessment Reason for Assessment: Admission nursing screening Kevan La is a 49 y.o. male on day 3 of admission presenting with Hidradenitis suppurativa. - DEEP ABSC BURSA/HEMATOMA THIGH/KNEE REGION 10/13 S/P I&D L Thigh Past Medical History severe hidradenitis supprativa (disease on left buttock and gluteal fold) on STOP HS-301 trial (povorcitinib, small molecule JAK1 inhibitor) Nutrition History: Food and Nutrient History: Met with patient who states his appetite is "a little less than normal." Reports consuming 100% of breakfast this morning: potatoes, scrambled eggs with cheese, an Burmese muffin with butter and jelly and orange juice." States consuming 100% of lunch: "grilled cheese, pudding and apple juice". At baseline, eats Lunch and Dinner "I try to drink an Ensure for breakfast." Patient states "I don't eat vegetables or fruit." Patient amenable to a daily serving of Ensure while admitted. Denies N/V/C/D. Vitamin/Herbal Supplement Use: Reports taking Vitamin D3, MVI and Iron. Food Allergy: ("Banana and avocado") Anthropometrics: Height: 200.7 cm (6' 7") Weight: 101 kg (222 lb) BMI (Calculated): 25 IBW/kg (Dietitian Calculated): 100 kg Percent of IBW: 100 % Weight History: Wt Readings from Last 15 Encounters: 10/11/24 101 kg (222 lb) 09/13/24 101 kg (222 lb 3.6 oz) 09/12/24 102 kg (225 lb) Weight Change %: Weight History / % Weight Change: When asked about wt change, patient answered "I couldn't tell you. It's not something I keep track of." Denies that his clothes fit looser. States his usual wt fluctuates 220-230 lbs. Nutrition Focused Physical Exam Findings: Subcutaneous Fat Loss: Orbital Fat Pads: Mild-Moderate (slight dark circles and slight hollowing) Buccal Fat Pads: Well nourished (full, rounded cheeks) Triceps: Well nourished (ample fat tissue) Ribs: Defer Muscle Wasting: Temporalis: Mild-Moderate (slight depression) Pectoralis (Clavicular Region): Well nourished (clavicle not visible) Deltoid/Trapezius: Well nourished (rounded appearance at arm, shoulder, neck) Interosseous: Well nourished (muscle bulges) Trapezius/Infraspinatus/Supraspin atus (Scapular Region): Well nourished (bones not prominent, muscle taut) Quadriceps: Defer Gastrocnemius: Defer Edema: Edema: none Physical Findings: Chronic left thigh/hip hidradenitis with deep abscess/myositis. Nutrition Significant Labs: CBC Trend: Results from last 7 days Lab Units 10/14/24 0830 10/13/24 1943 10/13/24 1148 10/12/24 0824 WBC AUTO x10*3/uL 15.0* 24.0* 30.1* 14.6* RBC AUTO x10*6/uL 2.94* 2.92* 3.76* 3.48* HEMOGLOBIN g/dL 8.1* 8.3* 10.5* 9.5* HEMATOCRIT % 26.6* 25.6* 34.1* 30.8* MCV fL 91 88 91 89 PLATELETS AUTO x10*3/uL 561* 579* 755* 633* , BMP Trend: Results from last 7 days Lab Units 10/14/24 0830 10/13/24 1148 10/12/24 0824 10/11/24 0546 GLUCOSE mg/dL 163* 144* 100* 79 CALCIUM mg/dL 9.0 10.4 10.0 9.4 SODIUM mmol/L 137 139 136 138 POTASSIUM mmol/L 3.9 4.5 4.0 4.1 CO2 mmol/L 24 CHLORIDE mmol/L 102 100 101 106 BUN mg/dL 15 19 16 20 CREATININE mg/dL 1.44* 1.84* 1.61* 1.60* , A1C: Lab Results Component Value Date HGBA1C 6.0 (H) 09/14/2024 , BG POCT trend: , Liver Function Trend: Results from last 7 days Lab Units 10/14/24 0810/13/24 1148 10/12/24 0824 10/10/24 1617 ALK PHOS U/L 60 76 66 79 AST U/L 6* 10 11 9 ALT U/L 9* 9* 8* 14 BILIRUBIN TOTAL mg/dL 0.2 0.4 0.3 0.2 , Renal Lab Trend: Results from last 7 days Lab Units 10/14/24 0810/13/24 1148 10/12/24 0824 10/11/24 0546 POTASSIUM mmol/L 3.9 4.5 4.0 4.1 PHOSPHORUS mg/dL -- -- -- 3.8 SODIUM mmol/L 137 139 136 138 MAGNESIUM mg/dL -- -- -- 2.19 EGFR mL/min/1.73m*2 59* 44* 51* 52* BUN mg/dL 15 19 16 20 CREATININE mg/dL 1.44* 1.84* 1.61* 1.60* , Vit D: No results found for: "VITD25" , Vit B12: No results found for: "[id number]" Nutrition Specific Medications: Scheduled medications acetaminophen, 975 mg, oral, TID cetirizine, 10 mg, oral, Daily clindamycin, , Topical, BID heparin (porcine), 5,000 Units, subcutaneous, q8h BERNADETTE nicotine, 1 patch, transdermal, Daily piperacillin-tazobactam, 3.375 g, intravenous, q6h polyethylene glycol, 17 g, oral, Daily tiZANidine, 2 mg, oral, TID vancomycin, 750 mg, intravenous, q12h Continuous medications sodium chloride 0.9%, 100 mL/hr, Last Rate: 100 mL/hr (10/14/24 0712) PRN medications PRN medications: HYDROmorphone, nicotine polacrilex, oxyCODONE, vancomycin I/O: ; Dietary Orders (From admission, onward) Start Ordered 10/13/241104 Adult diet Regular Diet effective now Question: Diet type Answer: Regular 10/13/24 1105 10/11/241914 May Participate in Room Service ( ROOM SERVICE MAY PARTICIPATE) Once Question: . Answer: Yes 10/11/241913 Estimated Needs: Total Energy Estimated Needs in 24 hours (kCal): 2700 kCal Method for Estimating Needs: IBW / 27 kcal Total Protein Estimated Needs in 24 Hours (g): 135 g Method for Estimating 24 Hour Protein Needs: IBW / 1.35 g Nutrition Diagnosis Malnutrition Diagnosis Patient has Malnutrition Diagnosis: No Nutrition Diagnosis Patient has Nutrition Diagnosis: Yes Nutrition Diagnosis 1: Increased nutrient needs Related to (1): Increased metabolic demand As Evidenced by (1): hidradentitis suppurativa infection Nutrition Interventions/Recommendations Nutrition prescription for oral nutrition Nutrition Recommendations: Individualized Nutrition Prescription Provided for : Regular diet. Chocolate Ensure Plus (350 kcal and 13 g protein) ordered every Breakfast. Order daily MVI. Nutrition Interventions/Goals: Interventions: Meals and snacks Goal: >/= 75% Medial Food Supplement Goal: >/= 75% Education Documentation Encourage protein with meals. Encourage Ensure Plus. Explained the need for MVI as patient doesn't eat fruits or vegetables. Nutrition Monitoring and Evaluation Food/Nutrient Related History Monitoring Monitoring and Evaluation Plan: Intake / amount of food Physical Exam Findings Monitoring and Evaluation Plan: Skin Goal Status: New goal(s) identified Time Spent (min): 45 minutes Associated Order(s): WOUND OSTOMY NURSING CONSULT Images from the original note were not included. Wound Care Consult Visit Date: 10/11/2024 Patient Name: Kevan La Date of : 1975 Reason for Consult: L buttock hidradenitis suppurativa Wound History: Kevan La is a 49 y.o. male with refractory hidradenitis supprativa (HS) not responding to povorcitinib (RCT candidate), apremilast, isotretinoin, adalimumab, infliximab, clindamycin, rifampin, augmentin and doxycycline. He came to [facility] ED with severe HS and associated deep seated tissue infection. Wound Assessment: Wound 09/13/24 Other (comment) Buttock Left (Active) Wound Image 10/11/24 1444 Site Assessment Yellow;[place];Painful;Denuded;Indur ation;Granulation;Fibrinous;Swell ing 10/11/24 1444 Wound Length (cm) 3 cm 10/11/24 1444 Wound Width (cm) 3.5 cm 10/11/24 1444 Wound Surface Area (cm^2) 10.5 cm^2 10/11/24 1444 Wound Depth (cm) 1 cm 10/11/24 1444 Wound Volume (cm^3) 10.5 cm^3 10/11/24 1444 Wound Healing % -110 10/11/24 1444 State of Healing Non-healing;Slough;Undermining 10/11/24 144 Undermining Clock Position of Wound 6 10/11/24 1444 Margins Not attached;Poorly defined 10/11/24 1444 Treatments Site care;Packings 10/11/24 1444 Drainage Description Purulent;Bourne;Yellow 10/11/24 144 Drainage Amount Moderate 10/11/24 1444 Dressing Hydrofiber;Packed;ABD;Silicone border dressing;Barrier film 10/11/24 144 Dressing Changed New 10/11/24 1444 Dressing Status Dry;Clean 10/11/24 144 Wound 10/10/24 Leg Left;Upper (Active) Assessment/Intervention: Pt seen resting side-lying on ED stretcher; alert and oriented, no visitors present. Foul odor noted immediately upon entrance to room. L buttock with countless HS pits and scars. Multiple draining wounds, including 3cm x 3.5cm x 1cm relatively large wound in center of buttocks. Undermining noted at 12:00 and 6:00 (~4cm). Overall, moderate amount of oily, purulent, bourne/yellow drainage. Significant pain and induration noted. Skin cleaned using Vashe wound cleanser on gauze, then treated with Cavilon Advanced skin protectant. Large wound packed with Aquacel Ag secured with Mepilex foam. Aquacel Ag placed to smaller draining wounds and covered with ABD pads, secured with paper tape. New chux and linens placed. Pt reports he uses clindamycin ointment and 4x4s at home. He cannot reach wound to pack it. He does not currently have insurance coverage. Recs below --> Wound Team Recs: ABX per ID, debridement & wound culture per ACS. For local/topical wound care, recommend BID dressing changes --> Remove old dressings and cleanse skin/wounds with Vashe wound cleanser. Apply skin prep to periwound skin. Pack open, draining L buttock wound with Aquacel Ag rope (may moisten tip with ordered clindamycin gel). Cover other draining wounds with small pieces of Aquacel Ag. Secure/cover dressings with ABD pads/tape, Mepilex bordered foams and/or Extrasorb pads (whatever is accessible and comfortable for pt). Ideally, have pt shower daily with ABX/CHG (ie., Hibiclens) soap. Provider, please review recs above and sign saved wound care orders accordingly. Nereida Owens RN, CWON Wound/Ostomy Nurse 10/11/2024 2:47 PM Associated Order(s): IP CONSULT TO DERMATOLOGY DERMATOLOGY DEPARTMENT CONSULTATION NOTE Name: Kevan La : 1975 Reason for consultation: HS History of Present Illness Kevan aL is a 49 y.o. male with a past medical history of hidradenitis suppurativa (disease on left buttock and gluteal fold) on STOP HS-301 trial (povorcitinib, small molecule JAK1 inhibitor), who presented on 10/10/2024 with fatigue, weakness, and worsening of L gluteal wound and was admitted for further management. Dermatology was consulted for HS. Patient was recently [place] [facility] [place] for the same complaint. He presented then with a fever to 100.4 , tachycardia to 102. CT A/P with contrast showed subcutaneous edema and subcutaneous emphysema of the left buttock extending along the posterior left thigh. Extension of fluid into the posterior deep intramuscular fascia of the posterior left thigh. He was started on Vanc/Zosyn and seen by dermatology who paused his trial drug, and surgery who did not recommend any surgical intervention. Blood cultures were negative and wound culture showed mixed aerobic and anaerobic bacteria (beta lactamase positive). He was discharged on a course of Augmentin. Patient states that since discharge he has followed up with dermatology and ID. Started back on doxycycline on 09/20 and then povorcitinib on 09/30. Despite this he has been feeling worse, and is unable to carry out daily activities due to extreme fatigue and pain around the wounds. He has been taking Tylenol and ibuprofen for the pain but find they wear off too quickly. Endorses increased draining of "yellow-white" fluid from the primary wound on the buttock and has difficulty performing wound care due to the location of the wound. He been washing his wounds with a "purple solution" daily, applyig clindamycin 1% lotion, and then using bandages- cannot pack wounds. Endorses some nausea and chills at home but no recorded or subjective fevers. No other new infectious symptoms such as congestion, cough, abdominal pain, diarrhea, dysuria. In the ED, he was afebrile and hemodynamically stable with heart rate of 85, BP 106/64, respiratory rate 16, saturating 99% on room air. Labs were remarkable for worsening leukocytosis with WBC 17.5 (12.3 on discharge), hemoglobin 10.5, platelets 721 (increased from 635 on discharge), and Cr 1.69 (improved from 1.[address] pelvis was remarkable for left gluteal skin thickening and ulceration, with phlegmon and fluid extending from the skin abnormality into the gluteus randell muscle, large area of phlegmon/abscess within the gluteus randell. Patient was started on Vanc/Zosyn and received IV Dilaudid for pain as well as a 1 L NS bolus. Wound cultures were collected and are pending. Now pending ACS intervention for I&D. HS history: He reports a history of HS from 2016. Previous therapies include doxycycline, minocycline, isotretinoin, clindamycin/rifampin, Humira, Remicade, staph decolonization for mupirocin, moxifloxacin/metronidazole, and apremilast. He was being treated by [facility]. Pt reports that he has been on multiple therapies and was not able to list all the medications he has previously tried. In 11/2023, he was started on clinical trial STOP HS-301 with povortcitinib, small molecule JAK1 inhibitor. Review of Systems Review of Systems Constitutional: Negative for chills and fever. HENT: Negative for mouth sores. Eyes: Negative for pain. Respiratory: Negative for shortness of breath. Cardiovascular: Negative for chest pain. Gastrointestinal: Positive for nausea. Genitourinary: Negative for genital sores. Musculoskeletal: Negative for arthralgias. Skin: Positive for wound. Neurological: Positive for weakness. Psychiatric/Behavioral: Negative for behavioral problems. Past Medical History History reviewed. No pertinent past medical history. Past Surgical History has no past surgical history on file. Allergies No Known Allergies Medications Scheduled Meds: acetaminophen, 975 mg, oral, TID cetirizine, 10 mg, oral, Daily clindamycin, , Topical, BID piperacillin-tazobactam, 3.375 g, intravenous, q6h vancomycin, 750 mg, intravenous, q12h Continuous Infusions: PRN Meds: PRN medications: HYDROmorphone, oxyCODONE, vancomycin Family History No family history on file. Social History reports that he has been smoking cigarettes. He started smoking about 38 years ago. He has a 38.1 pack-year smoking history. He has never used smokeless tobacco. He reports that he does not use drugs. No history on file for alcohol use. Objective Vitals: 10/11/24 0426 10/11/24 0500 10/11/24 0700 10/11/24 1015 BP: 93/60 101/62 103/62 BP Location: Left arm Patient Position: Lying Pulse: 70 71 77 Resp: 18 18 16 Temp: TempSrc: SpO2: 94% 94% 96% Weight: 101 kg (222 lb) Height: 2.007 m (6' 7") Exam GEN: uncomfortable appearing NEURO: moving all extremities EYES: conjunctiva and eyelids normal. No conjunctival injection or erosions appreciated ENT: - Lips: normal - Teeth/gums: normal - Oropharynx: normal tongue and mucosa NECK: normal and symmetric. CV: no varicosities, warmth or tenderness of extremities. GI: Flat abdomen. Non-tender. No hepatosplenomegaly. LYMPH: no LAD EXTREMITIES: no distal digital clubbing, cyanosis, petechiae SKIN: A full body skin exam including scalp, face, eyes, ears, neck, trunk, bilateral upper & lower extremities, toenails and fingernails were examined with the following findings: - On the bilateral buttocks and gluteal cleft are many comedones, multiple indurated sinus tracts, and subcutaneous nodules. Two large deep tracking wounds actively draining yellow-white exudate. Laboratory and Data Results for orders placed or performed during the hospital encounter of 10/10/24 (from the past 24 hours) BLOOD GAS VENOUS FULL PANEL Result Value Ref Range POCT pH, Venous 7.43 7.33 - 7.43 pH POCT pCO2, Venous 38 (L) 41 - 51 mm Hg POCT pO2, Venous 43 35 - 45 mm Hg POCT SO2, Venous 78 (H) 45 - 75 % POCT Oxy Hemoglobin, Venous 74.1 45.0 - 75.0 % POCT Hematocrit Calculated, Venous 31.0 (L) 41.0 - 52.0 % POCT Sodium, Venous 137 136 - 145 mmol/L POCT Potassium, Venous 4.7 3.5 - 5.3 mmol/L POCT Chloride, Venous 106 98 - 107 mmol/L POCT Ionized Calicum, Venous 1.31 1.10 - 1.33 mmol/L POCT Glucose, Venous 109 (H) 74 - 99 mg/dL POCT Lactate, Venous 1.2 0.4 - 2.0 mmol/L POCT Base Excess, Venous 0.9 -2.0 - 3.0 mmol/L POCT HCO3 Calculated, Venous 25.2 22.0 - 26.0 mmol/L POCT Hemoglobin, Venous 10.2 (L) 13.5 - 17.5 g/dL POCT Anion Gap, Venous 11.0 10.0 - 25.0 mmol/L Patient Temperature 37.0 degrees Celsius FiO2 21 % CBC and Auto Differential Result Value Ref Range WBC 17.5 (H) 4.4 - 11.3 x10*3/uL nRBC 0.0 0.0 - 0.0 /100 WBCs RBC 3.82 (L) 4.50 - 5.90 x10*6/uL Hemoglobin 10.5 (L) 13.5 - 17.5 g/dL Hematocrit 31.9 (L) 41.0 - 52.0 % MCV 84 80 - 100 fL MCH 27.5 26.0 - 34.0 pg MCHC 32.9 32.0 - 36.0 g/dL RDW 17.4 (H) 11.5 - 14.5 % Platelets 721 (H) 150 - 450 x10*3/uL Neutrophils % 71.1 40.0 - 80.0 % Immature Granulocytes %, Automated 2.3 (H) 0.0 - 0.9 % Lymphocytes % 15.6 13.0 - 44.0 % Monocytes % 9.1 2.0 - 10.0 % Eosinophils % 1.4 0.0 - 6.0 % Basophils % 0.5 0.0 - 2.0 % Neutrophils Absolute 12.45 (H) 1.20 - 7.70 x10*3/uL Immature Granulocytes Absolute, Automated 0.40 0.00 - 0.70 x10*3/uL Lymphocytes Absolute 2.73 1.20 - 4.80 x10*3/uL Monocytes Absolute 1.60 (H) 0.10 - 1.00 x10*3/uL Eosinophils Absolute 0.25 0.00 - 0.70 x10*3/uL Basophils Absolute 0.08 0.00 - 0.10 x10*3/uL Comprehensive metabolic panel Result Value Ref Range Glucose 105 (H) 74 - 99 mg/dL Sodium 139 136 - 145 mmol/L Potassium 4.1 3.5 - 5.3 mmol/L Chloride 104 98 - 107 mmol/L Bicarbonate 23 21 - 32 mmol/L Anion Gap 16 10 - 20 mmol/L Urea Nitrogen 21 6 - 23 mg/dL Creatinine 1.69 (H) 0.50 - 1.30 mg/dL eGFR 49 (L) >60 mL/min/1.73m*2 Calcium 10.4 8.6 - 10.6 mg/dL Albumin 3.8 3.4 - 5.0 g/dL Alkaline Phosphatase 79 33 - 120 U/L Total Protein 7.9 6.4 - 8.2 g/dL AST 9 9 - 39 U/L Bilirubin, Total 0.2 0.0 - 1.2 mg/dL ALT 14 10 - 52 U/L Type And Screen Result Value Ref Range ABO TYPE A Rh TYPE POS ANTIBODY SCREEN NEG Coagulation Screen Result Value Ref Range Protime 13.8 (H) 9.8 - 12.8 seconds INR 1.2 (H) 0.9 - 1.1 aPTT 32 27 - 38 seconds Iron and TIBC Result Value Ref Range Iron 24 (L) 35 - 150 ug/dL UIBC 194 110 - 370 ug/dL TIBC 218 (L) 240 - 445 ug/dL % Saturation 11 (L) 25 - 45 % Ferritin Result Value Ref Range Ferritin 259 20 - 300 ng/mL Sedimentation rate, automated Result Value Ref Range Sedimentation Rate >130 (H) 0 - 20 mm/h C-reactive protein Result Value Ref Range C-Reactive Protein 7.72 (H) <1.00 mg/dL Blood Culture Specimen: Peripheral Venipuncture; Blood culture Result Value Ref Range Blood Culture Loaded on Instrument - Culture in progress Blood Culture Specimen: Peripheral Venipuncture; Blood culture Result Value Ref Range Blood Culture Loaded on Instrument - Culture in progress Urine electrolytes Result Value Ref Range Sodium, Urine Random 123 mmol/L Sodium/Creatinine Ratio 89 Not established. mmol/g Creat Potassium, Urine Random 50 mmol/L Potassium/Creatinine Ratio 36 Not established mmol/g Creat Chloride, Urine Random 123 mmol/L Chloride/Creatinine Ratio 89 23 - 275 mmol/g creat Creatinine, Urine Random 138.4 20.0 - 370.0 mg/dL Urinalysis with Reflex Culture and Microscopic Result Value Ref Range Color, Urine Light-Yellow Light-Yellow, Yellow, Dark-Yellow Appearance, Urine Clear Clear Specific [place], Urine 1.037 (N) 1.005 - 1.035 pH, Urine 7.0 5.0, 5.5, 6.0, 6.5, 7.0, 7.5, 8.0 Protein, Urine NEGATIVE NEGATIVE, 10 (TRACE), 20 (TRACE) mg/dL Glucose, Urine Normal Normal mg/dL Blood, Urine NEGATIVE NEGATIVE Ketones, Urine NEGATIVE NEGATIVE mg/dL Bilirubin, Urine NEGATIVE NEGATIVE Urobilinogen, Urine Normal Normal mg/dL Nitrite, Urine NEGATIVE NEGATIVE Leukocyte Esterase, Urine NEGATIVE NEGATIVE Extra Urine Rhodes Tube Result Value Ref Range Extra Tube Hold for add-ons. CBC and Auto Differential Result Value Ref Range WBC 14.3 (H) 4.4 - 11.3 x10*3/uL nRBC 0.0 0.0 - 0.0 /100 WBCs RBC 3.40 (L) 4.50 - 5.90 x10*6/uL Hemoglobin 9.6 (L) 13.5 - 17.5 g/dL Hematocrit 28.7 (L) 41.0 - 52.0 % MCV 84 80 - 100 fL MCH 28.2 26.0 - 34.0 pg MCHC 33.4 32.0 - 36.0 g/dL RDW 17.2 (H) 11.5 - 14.5 % Platelets 650 (H) 150 - 450 x10*3/uL Neutrophils % 60.8 40.0 - 80.0 % Immature Granulocytes %, Automated 1.2 (H) 0.0 - 0.9 % Lymphocytes % 23.6 13.0 - 44.0 % Monocytes % 11.3 2.0 - 10.0 % Eosinophils % 2.7 0.0 - 6.0 % Basophils % 0.4 0.0 - 2.0 % Neutrophils Absolute 8.67 (H) 1.20 - 7.70 x10*3/uL Immature Granulocytes Absolute, Automated 0.17 0.00 - 0.70 x10*3/uL Lymphocytes Absolute 3.37 1.20 - 4.80 x10*3/uL Monocytes Absolute 1.62 (H) 0.10 - 1.00 x10*3/uL Eosinophils Absolute 0.39 0.00 - 0.70 x10*3/uL Basophils Absolute 0.06 0.00 - 0.10 x10*3/uL Renal Function Panel Result Value Ref Range Glucose 79 74 - 99 mg/dL Sodium 138 136 - 145 mmol/L Potassium 4.1 3.5 - 5.3 mmol/L Chloride 106 98 - 107 mmol/L Bicarbonate 24 21 - 32 mmol/L Anion Gap 12 10 - 20 mmol/L Urea Nitrogen 20 6 - 23 mg/dL Creatinine 1.60 (H) 0.50 - 1.30 mg/dL eGFR 52 (L) >60 mL/min/1.73m*2 Calcium 9.4 8.6 - 10.6 mg/dL Phosphorus 3.8 2.5 - 4.9 mg/dL Albumin 3.3 (L) 3.4 - 5.0 g/dL Magnesium Result Value Ref Range Magnesium 2.19 1.60 - 2.40 mg/dL Assessment/Plan Kevan La is a 49 y.o. male with a past medical history of hidradenitis suppurativa (disease on left buttock and gluteal fold) on STOP HS-301 trial (povorcitinib, small molecule JAK1 inhibitor), who presented on 10/10/2024 with fatigue, weakness, and worsening of L gluteal wound and was admitted for further management. Dermatology was consulted for HS. Differential diagnoses: HS flare. Cannot rule out superimposed infection. Impression: Patient's clinical presentation is most consistent with a flare of HS; however, given his leukocytosis, evidence of extensive phlegmon/abscess within gluteus randell, and elevated inflammatory markers, cannot rule out a superimposed soft tissue infection. Unfortunately, patient has failed many previous treatments including augmentin, doxycycline, minocycline, isotretinoin, clindamycin/rifampin, Humira, Remicade, staph decolonization for mupirocin, moxifloxacin/metronidazole, and apremilast. As he has had experienced the most improvement with his current clinical trials medication, we are hesitant to suggest discontinuing it permanently. However, it is concerning that he has continued to have progression; we will reach out to his clinical trials team for further guidance. Given the significant drainage and extension, likely that he will respond well to I&D. It is true that he may have slow healing, but letting the unhealthy tissue continue to drain in its current fashion would likely lead to worsening over time and poor healing as well. Recommendations: - Agree with ACS intervention for I&D and tissue cultures - Agree with continuing vanc/zosyn pending wound cultures. Will follow cultures - Continue to hold STOP HS-301 trial medication. Will reach out to the clinical trials team to determine if/when it can be restarted (next appointment scheduled 11/12/2024, will likely need sooner) - Continue hibiclens wash BID, topical clindamycin BID, and wound care - Patient will need diligent wound care once discharged. Recommend initiating process of arranging home wound care. - We will make sure he has follow up from dermatology standpoint as well. The patient was seen and discussed with attending physician Dr. Soares. The assessment and plan was communicated to the care team. Thank you for the consultation and for the opportunity to contribute to the care of this patient. Daria Helton MD PGY2, Dermatology Epic chat (preferred) Team pager [phone] I saw and evaluated the patient. I personally obtained the gomez and critical portions of the history and physical exam or was physically present for gomez and critical portions performed by the resident. I reviewed the resident's documentation and discussed the patient with the resident. I agree with the resident's medical decision making as documented in the note. Lauri Soares MD Associated Order(s): PHARMACY TO DOSE VANCO Vancomycin Dosing by Pharmacy- INITIAL Kevan La is a 49 y.o. year old male who Pharmacy has been consulted for vancomycin dosing for cellulitis, skin and soft tissue. Based on the patient's indication and renal status this patient will be dosed based on a goal AUC of 400-600. Renal function is currently stable. Visit Vitals BP 95/64 (BP Location: Right arm, Patient Position: Lying) Pulse 76 Temp 36.7 C (98 F) (Oral) Resp 16 Lab Results Component Value Date CREATININE 1.69 (H) 10/10/2024 CREATININE 1.89 (H) 09/17/2024 CREATININE 1.88 (H) 09/16/2024 CREATININE 1.77 (H) 09/15/2024 Patient weight is as follows: Vitals: 10/10/24 1501 Weight: 101 kg (222 lb) Cultures: No results found for the encounter in last 14 days. No intake/output data recorded. I/O during current shift: No intake/output data recorded. Temp (24hrs), Av.7 C (98 F), Min:36.7 C (98 F), Max:36.7 C (98 F) Assessment/Plan Patient will get 750 mg Q12H This dosing regimen is predicted by [employer] to result in the following pharmacokinetic parameters: Regimen: 750 mg IV every 12 hours. Start time: 23:41 on 10/10/2024 Exposure target: AUC24 (range)400-600 mg/L.hr [id number]: 316 mg/L.hr AUC24,ss: 465 mg/L.hr Follow-up level tomorrow with AM labs. Will continue to monitor renal function daily while on vancomycin and order serum creatinine at least every 48 hours if not already ordered. Follow for continued vancomycin needs, clinical response, and signs/symptoms of toxicity. Long Swain PharmD Associated Order(s): IP CONSULT TO ACUTE CARE SURGERY [facility] ACUTE CARE SURGERY - HISTORY AND PHYSICAL / CONSULT Patient Name: Kevan La Admit Date: [id number] : 1975 AGE: 49 y.o. GENDER: male TODAY'S ASSESSMENT AND PLAN OF CARE: 49M with refractory HS (now on povorcitinib in clinical trial) who presents for L gluteal HS flare with concern for infection. On exam, patient appears HDS. L gluteal area is significantly indurated with multiple pits and sinuses as well as one open ulcer. No obvious signs of ongoing infection or concern for necrotizing infection. CT imaging reviewed with no obvious abscess to be drained surgically. -No acute surgical intervention -Would recommend medical evaluation for wound care and involvement of dermatology and ID given patient's refractory disease and clinical trial involvement -Please call with any further questions or concerns Patient seen and discussed with attending, Dr. Maurice Magana MD PGY-4 General Surgery [facility] [id number] CHIEF COMPLAINT/REASON FOR CONSULT: 49M with PMH of hidradenitis suppurativa (failed multiple lines of systemic therapy, currently enrolled in clinical trial of povorcitinib) who presents to ED for concern for infection. Patient reports that he has been doing okay but recently started noticing increased fatigue, which he describes as requiring a 20 minute nap after going out to buy groceries. Denies any new fevers or chills but reports one episode of emesis on Monday. States that he wanted to pack a wound on his gluteus but was unable to physically reach it to do so. Reports hidradenitis exclusive to gluteal area, denies inguinal or perineal or axillary disease. Per chart review, patient has had a longstanding hx of HS and has failed multiple antibiotic and biologic agents. He is followed by dermatology and ID. He was recently seen for similar complaints on 09/13, during which he was discharged with wound care recommendations and did not require surgery. PAST MEDICAL HISTORY: PMH: HIdradenitis PSH: Denies any surgical history. History reviewed. No pertinent surgical history. FH: Denies any pertinent family hx SOCIAL HISTORY: Smoking: Social History Tobacco Use Smoking Status Every Day Current packs/day: 1.00 Average packs/day: 1 pack/day for 38.1 years (38.1 ttl pk-yrs) Types: Cigarettes Start date: 1986 Smokeless Tobacco Never Denies EtOH or illicits. Currently taking varenicline for smoking cessation MEDICATIONS: Prior to Admission medications Medication Sig Start Date End Date Taking? Authorizing Provider acetaminophen (Tylenol) 325 mg tablet Take 3 tablets (975 mg) by mouth every 8 hours. 09/17/24 10/17/24 Lia Prado MD amoxicillin-pot clavulanate (Augmentin) 875-125 mg tablet Take 1 tablet by mouth 2 times a day for 21 days. 09/17/24 10/08/24 Lia Prado MD clindamycin (Cleocin T) 1 % lotion Apply topically 2 times a day. 09/17/24 10/17/24 Lia Prado MD doxycycline (Vibra-Tabs) 100 mg tablet Take 1 tablet (100 mg) by mouth 2 times a day. Take with a full glass of water and do not lie down for at least 30 minutes after. 09/20/24 10/20/24 Ronna Carpenter APRN-NEHAL nicotine polacrilex (Nicorette) 2 mg gum Chew 1 each (2 mg) every 2 hours if needed for smoking cessation. 09/17/24 Lia Prado MD ondansetron ODT (Zofran-ODT) 4 mg disintegrating tablet Dissolve 1 tablet (4 mg) in the mouth every 8 hours if needed for nausea. 09/17/24 Lia Prado MD polyethylene glycol (Glycolax, Miralax) 17 gram packet Take 17 g by mouth once daily. 09/18/24 10/18/24 Lia Prado MD Study STOP-HS1 [id number] povorcitinib 45mg or 75mg tablet Take 1 tablet by mouth once daily. Preferably in the morning, with a full glass of water. 02/29/24 Kimber Last MD Study STOP-HS1 [id number] povorcitinib 45mg or 75mg tablet Take 1 tablet by mouth once daily. Preferably in the morning, with a full glass of water. 04/04/24 Kimber Last MD Study STOP-HS1 [id number] povorcitinib 45mg or 75mg tablet Take 1 tablet by mouth once daily. Preferably in the morning, with a full glass of water. 04/12/24 Kimber Last MD Study STOP-HS1 [id number] povorcitinib 45mg or 75mg tablet Take 1 tablet by mouth once daily. Preferably in the morning, with a full glass of water. 05/27/24 Marlon Hughes MD Study STOP-HS1 [id number] povorcitinib 45mg or 75mg tablet Take 1 tablet by mouth once daily. Preferably in the morning, with a full glass of water. 07/08/24 Marlon Hughes MD Study STOP-HS1 [id number] povorcitinib 45mg or 75mg tablet Take 1 tablet by mouth once daily. Preferably in the morning, with a full glass of water. 08/20/24 Marlon Hughes MD Study STOP-HS1 [id number] povorcitinib 45mg or 75mg tablet Take 1 tablet by mouth once daily. Preferably in the morning, with a full glass of water. 09/30/24 Marlon Hughes MD Study STOP-HS1 [id number] povorcitinib 45mg, 75mg or placebo tablet Take 1 tablet by mouth once daily. Preferably in the morning, with a full glass of water. 12/11/23 Kimber Last MD Study STOP-HS1 [id number] povorcitinib 45mg, 75mg or placebo tablet Take 1 tablet by mouth once daily. Preferably in the morning, with a full glass of water. 12/29/23 Kimber Last MD Study STOP-HS1 [id number] povorcitinib 45mg, 75mg or placebo tablet Take 1 tablet by mouth once daily. Preferably in the morning, with a full glass of water. 01/16/24 Kimber Last MD Study STOP-HS1 [id number] povorcitinib 45mg, 75mg or placebo tablet Take 1 tablet by mouth once daily. Preferably in the morning, with a full glass of water. 02/09/24 Kimber Last MD varenicline (Chantix) 1 mg tablet Take 0.5 tablets (0.5 mg) by mouth 2 times a day for 4 days, THEN 1 tablet (1 mg) 2 times a day. Do not start before September 18, 2024. 09/18/24 12/07/24 Lia Prado MD ALLERGIES: No Known Allergies REVIEW OF SYSTEMS: Review of Systems Constitutional: Positive for fatigue. Negative for appetite change and chills. HENT: Negative. Eyes: Negative. Respiratory: Negative. Cardiovascular: Negative. Gastrointestinal: Negative. Endocrine: Negative. Genitourinary: Negative. Musculoskeletal: Negative. Skin: Positive for wound. Allergic/Immunologic: Negative. Neurological: Negative. Hematological: Negative. Psychiatric/Behavioral: Negative. PHYSICAL EXAM: Physical Exam Constitutional: General: He is not in acute distress. Appearance: Normal appearance. He is not ill-appearing. HENT: Head: Normocephalic. Nose: Nose normal. Mouth/Throat: Mouth: Mucous membranes are moist. Eyes: Extraocular Movements: Extraocular movements intact. Pupils: Pupils are equal, round, and reactive to light. Cardiovascular: Rate and Rhythm: Normal rate and regular rhythm. Pulmonary: Effort: Pulmonary effort is normal. Breath sounds: Normal breath sounds. Abdominal: General: There is no distension. Palpations: Abdomen is soft. Tenderness: There is no abdominal tenderness. Musculoskeletal: General: Normal range of motion. Skin: Comments: L gluteus with significant induration and scarring. Multiple pits and draining sinuses without purulence. One open ulcerated area appx size of a quarter with fibrinous exudate without obvious purulent drainage. No other areas of hidradenitis IMAGING SUMMARY: CT Pelvis: There is marked skin thickening with within the left lower gluteal soft tissues which extends into the proximal left thigh with underlying subcutaneous stranding. There is a 2.0 x 1.2 cm x 1.2 cm focal ulceration along the left posteroinferior gluteal soft tissues (series 201, image 155). The soft tissue at fluid tract extends from the skin/subcutaneous abnormality into the left gluteus randell muscle. The muscle is enlarged, heterogeneously enhancing with the serpiginous fluid pockets consistent with phlegmon/abscess. This measures up to 9.2 x 5.7 cm in transaxial dimension (series 201, image 144) by at least 13.2 cm longitudinally (series 207, image 174). No soft tissue gas. No infiltration of the intramuscular fascia within the proximal left thigh. Multiple enlarged left inguinal, left pelvic, and intra-abdominal lymph nodes. For example: There is a large left inguinal lymph node measuring 1.6 cm (series 201, image 115), enlarged left pelvic sidewall lymph node at the level of the external iliac artery measuring 1.6 cm (series 201, image 91), and a right-sided pelvic wall lymph node measuring 1.3 cm (series 201, image 86). These are likely reactive. Partially visualized colon and small bowel are within normal limits. The bladder is within normal limits. LABS: Results from last 7 days Lab Units 10/10/24 1617 WBC AUTO x10*3/uL 17.5* HEMOGLOBIN g/dL 10.5* HEMATOCRIT % 31.9* PLATELETS AUTO x10*3/uL 721* NEUTROS PCT AUTO % 71.1 LYMPHS PCT AUTO % 15.6 MONOS PCT AUTO % 9.1 EOS PCT AUTO % 1.4 Results from last 7 days Lab Units 10/10/24 1617 APTT seconds 32 INR 1.2* Results from last 7 days Lab Units 10/10/24 1617 SODIUM mmol/L 139 POTASSIUM mmol/L 4.1 CHLORIDE mmol/L 104 CO2 mmol/L 23 BUN mg/dL 21 CREATININE mg/dL 1.69* CALCIUM mg/dL 10.4 PROTEIN TOTAL g/dL 7.9 BILIRUBIN TOTAL mg/dL 0.2 ALK PHOS U/L 79 ALT U/L 14 AST U/L 9 GLUCOSE mg/dL 105* Results from last 7 days Lab Units 10/10/24 1617 BILIRUBIN TOTAL mg/dL 0.2 I have reviewed all laboratory and imaging results ordered/pertinent for this encounter. Cosigned by Terrence Richards DO at 10/11/2024 8:52 AM EST Associated attestation - Terrence Richards DO - 10/11/2024 8:52 AM EST I saw and evaluated the patient. I personally obtained the gomez and critical portions of the history and physical exam or was physically present for gomez and critical portions performed by the resident/fellow. I reviewed the resident/fellow's documentation and discussed the patient with the resident/fellow. I agree with the resident/fellow's medical decision making as documented in the note. Personally saw wounds. Open L gluteal tract draining serous fluid, some fibrinonous drainage. No obvious fluctuance to exam, very indurated. CT scan without a clear target earlier. Mid L thigh draining tract without fluctuance. Draining appropriate. No obvious infection. Malaise, and failing to thrive at home. Probably needs admission, happy to follow along if needed by ACS service actively, call service if needs arise though no intervention needed currently. Terrence Richards DO documented in this encounter [facility] Work Phone: 10-13-2024 History and physical note H&P reviewed. The patient was examined and there are no changes to the H&P. Pt reassessed: plan for I&D today Cosigned by Momo Dougherty MD at 10/13/2024 7:22 PM EST Source Note - Diane Magana MD - 10/10/2024 11:27 PM EST [facility] ACUTE CARE SURGERY - HISTORY AND PHYSICAL / CONSULT Patient Name: Kevan La Admit Date: [id number] : 1975 AGE: 49 y.o. GENDER: male TODAY'S ASSESSMENT AND PLAN OF CARE: 49M with refractory HS (now on povorcitinib in clinical trial) who presents for L gluteal HS flare with concern for infection. On exam, patient appears HDS. L gluteal area is significantly indurated with multiple pits and sinuses as well as one open ulcer. No obvious signs of ongoing infection or concern for necrotizing infection. CT imaging reviewed with no obvious abscess to be drained surgically. -No acute surgical intervention -Would recommend medical evaluation for wound care and involvement of dermatology and ID given patient's refractory disease and clinical trial involvement -Please call with any further questions or concerns Patient seen and discussed with attending, Dr. Maurice Magana MD PGY-4 General Surgery [facility] [id number] CHIEF COMPLAINT/REASON FOR CONSULT: 49M with PMH of hidradenitis suppurativa (failed multiple lines of systemic therapy, currently enrolled in clinical trial of povorcitinib) who presents to ED for concern for infection. Patient reports that he has been doing okay but recently started noticing increased fatigue, which he describes as requiring a 20 minute nap after going out to buy groceries. Denies any new fevers or chills but reports one episode of emesis on Monday. States that he wanted to pack a wound on his gluteus but was unable to physically reach it to do so. Reports hidradenitis exclusive to gluteal area, denies inguinal or perineal or axillary disease. Per chart review, patient has had a longstanding hx of HS and has failed multiple antibiotic and biologic agents. He is followed by dermatology and ID. He was recently seen for similar complaints on 09/13, during which he was discharged with wound care recommendations and did not require surgery. PAST MEDICAL HISTORY: PMH: HIdradenitis PSH: Denies any surgical history. History reviewed. No pertinent surgical history. FH: Denies any pertinent family hx SOCIAL HISTORY: Smoking: Social History Tobacco Use Smoking Status Every Day Current packs/day: 1.00 Average packs/day: 1 pack/day for 38.1 years (38.1 ttl pk-yrs) Types: Cigarettes Start date: 1986 Smokeless Tobacco Never Denies EtOH or illicits. Currently taking varenicline for smoking cessation MEDICATIONS: Prior to Admission medications Medication Sig Start Date End Date Taking? Authorizing Provider acetaminophen (Tylenol) 325 mg tablet Take 3 tablets (975 mg) by mouth every 8 hours. 09/17/24 10/17/24 Lia Prado MD amoxicillin-pot clavulanate (Augmentin) 875-125 mg tablet Take 1 tablet by mouth 2 times a day for 21 days. 09/17/24 10/08/24 Lia Prado MD clindamycin (Cleocin T) 1 % lotion Apply topically 2 times a day. 09/17/24 10/17/24 Lia Prado MD doxycycline (Vibra-Tabs) 100 mg tablet Take 1 tablet (100 mg) by mouth 2 times a day. Take with a full glass of water and do not lie down for at least 30 minutes after. 09/20/24 10/20/24 Ronna Carpenter, [employer] nicotine polacrilex (Nicorette) 2 mg gum Chew 1 each (2 mg) every 2 hours if needed for smoking cessation. 09/17/24 Lia Prado MD ondansetron ODT (Zofran-ODT) 4 mg disintegrating tablet Dissolve 1 tablet (4 mg) in the mouth every 8 hours if needed for nausea. 09/17/24 Lia Prado MD polyethylene glycol (Glycolax, Miralax) 17 gram packet Take 17 g by mouth once daily. 09/18/24 10/18/24 Lia Prado MD Study STOP-HS1 [id number] povorcitinib 45mg or 75mg tablet Take 1 tablet by mouth once daily. Preferably in the morning, with a full glass of water. 02/29/24 Kimber Last MD Study STOP-HS1 [id number] povorcitinib 45mg or 75mg tablet Take 1 tablet by mouth once daily. Preferably in the morning, with a full glass of water. 04/04/24 Kimber Last MD Study STOP-HS1 [id number] povorcitinib 45mg or 75mg tablet Take 1 tablet by mouth once daily. Preferably in the morning, with a full glass of water. 04/12/24 Kimber Last MD Study STOP-HS1 [id number] povorcitinib 45mg or 75mg tablet Take 1 tablet by mouth once daily. Preferably in the morning, with a full glass of water. 05/27/24 Marlon Hughes MD Study STOP-HS1 [id number] povorcitinib 45mg or 75mg tablet Take 1 tablet by mouth once daily. Preferably in the morning, with a full glass of water. 07/08/24 Marlon Hughes MD Study STOP-HS1 [id number] povorcitinib 45mg or 75mg tablet Take 1 tablet by mouth once daily. Preferably in the morning, with a full glass of water. 08/20/24 Marlon Hughes MD Study STOP-HS1 [id number] povorcitinib 45mg or 75mg tablet Take 1 tablet by mouth once daily. Preferably in the morning, with a full glass of water. 09/30/24 Marlon Hughes MD Study STOP-HS1 [id number] povorcitinib 45mg, 75mg or placebo tablet Take 1 tablet by mouth once daily. Preferably in the morning, with a full glass of water. 12/11/23 Kimber Last MD Study STOP-HS1 [id number] povorcitinib 45mg, 75mg or placebo tablet Take 1 tablet by mouth once daily. Preferably in the morning, with a full glass of water. 12/29/23 Kimber Last MD Study STOP-HS1 [id number] povorcitinib 45mg, 75mg or placebo tablet Take 1 tablet by mouth once daily. Preferably in the morning, with a full glass of water. 01/16/24 Kimber Last MD Study STOP-HS1 [id number] povorcitinib 45mg, 75mg or placebo tablet Take 1 tablet by mouth once daily. Preferably in the morning, with a full glass of water. 02/09/24 Kimber Last MD varenicline (Chantix) 1 mg tablet Take 0.5 tablets (0.5 mg) by mouth 2 times a day for 4 days, THEN 1 tablet (1 mg) 2 times a day. Do not start before September 18, 2024. 09/18/24 12/07/24 Lia Prado MD ALLERGIES: No Known Allergies REVIEW OF SYSTEMS: Review of Systems Constitutional: Positive for fatigue. Negative for appetite change and chills. HENT: Negative. Eyes: Negative. Respiratory: Negative. Cardiovascular: Negative. Gastrointestinal: Negative. Endocrine: Negative. Genitourinary: Negative. Musculoskeletal: Negative. Skin: Positive for wound. Allergic/Immunologic: Negative. Neurological: Negative. Hematological: Negative. Psychiatric/Behavioral: Negative. PHYSICAL EXAM: Physical Exam Constitutional: General: He is not in acute distress. Appearance: Normal appearance. He is not ill-appearing. HENT: Head: Normocephalic. Nose: Nose normal. Mouth/Throat: Mouth: Mucous membranes are moist. Eyes: Extraocular Movements: Extraocular movements intact. Pupils: Pupils are equal, round, and reactive to light. Cardiovascular: Rate and Rhythm: Normal rate and regular rhythm. Pulmonary: Effort: Pulmonary effort is normal. Breath sounds: Normal breath sounds. Abdominal: General: There is no distension. Palpations: Abdomen is soft. Tenderness: There is no abdominal tenderness. Musculoskeletal: General: Normal range of motion. Skin: Comments: L gluteus with significant induration and scarring. Multiple pits and draining sinuses without purulence. One open ulcerated area appx size of a quarter with fibrinous exudate without obvious purulent drainage. No other areas of hidradenitis IMAGING SUMMARY: CT Pelvis: There is marked skin thickening with within the left lower gluteal soft tissues which extends into the proximal left thigh with underlying subcutaneous stranding. There is a 2.0 x 1.2 cm x 1.2 cm focal ulceration along the left posteroinferior gluteal soft tissues (series 201, image 155). The soft tissue at fluid tract extends from the skin/subcutaneous abnormality into the left gluteus randell muscle. The muscle is enlarged, heterogeneously enhancing with the serpiginous fluid pockets consistent with phlegmon/abscess. This measures up to 9.2 x 5.7 cm in transaxial dimension (series 201, image 144) by at least 13.2 cm longitudinally (series 207, image 174). No soft tissue gas. No infiltration of the intramuscular fascia within the proximal left thigh. Multiple enlarged left inguinal, left pelvic, and intra-abdominal lymph nodes. For example: There is a large left inguinal lymph node measuring 1.6 cm (series 201, image 115), enlarged left pelvic sidewall lymph node at the level of the external iliac artery measuring 1.6 cm (series 201, image 91), and a right-sided pelvic wall lymph node measuring 1.3 cm (series 201, image 86). These are likely reactive. Partially visualized colon and small bowel are within normal limits. The bladder is within normal limits. LABS: Results from last 7 days Lab Units 10/10/24 1617 WBC AUTO x10*3/uL 17.5* HEMOGLOBIN g/dL 10.5* HEMATOCRIT % 31.9* PLATELETS AUTO x10*3/uL 721* NEUTROS PCT AUTO % 71.1 LYMPHS PCT AUTO % 15.6 MONOS PCT AUTO % 9.1 EOS PCT AUTO % 1.4 Results from last 7 days Lab Units 10/10/24 1617 APTT seconds 32 INR 1.2* Results from last 7 days Lab Units 10/10/24 1617 SODIUM mmol/L 139 POTASSIUM mmol/L 4.1 CHLORIDE mmol/L 104 CO2 mmol/L 23 BUN mg/dL 21 CREATININE mg/dL 1.69* CALCIUM mg/dL 10.4 PROTEIN TOTAL g/dL 7.9 BILIRUBIN TOTAL mg/dL 0.2 ALK PHOS U/L 79 ALT U/L 14 AST U/L 9 GLUCOSE mg/dL 105* Results from last 7 days Lab Units 10/10/24 1617 BILIRUBIN TOTAL mg/dL 0.2 I have reviewed all laboratory and imaging results ordered/pertinent for this encounter. Cosigned by Terrence Richards DO at 10/11/2024 8:52 AM EST Images from the original note were not included. HPI: Kevan La is a 49 y.o. male with history severe hidradenitis supprativa (disease on left buttock and gluteal fold) on STOP HS-301 trial (povorcitinib, small molecule JAK1 inhibitor) who presents to [facility] ED with fatigue, weakness, and worsening of L gluteal wound. Patient was [place] [facility] [place] for the same complaint. He presented then with a fever to 100.4 , tachycardia to 102. CT A/P with contrast showed subcutaneous edema and subcutaneous emphysema of the left buttock extending along the posterior left thigh. Extension of fluid into the posterior deep intramuscular fascia of the posterior left thigh. He was started on Vanc/Zosyn and seen by dermatology who paused his trial drug, and surgery who did not recommend any surgical intervention. Blood cultures were negative and wound culture showed GPCs. He was discharged on a course of Augmentin. Patient states that since discharge he has followed up with dermatology and ID. He completed the course of Augmentin, and started back on povorcitinib and started doxycycline on 09/30. Despite this he has been feeling worse, and is unable to carry out daily activities due to extreme fatigue and pain around the wounds. He has been taking Tylenol and ibuprofen for the pain but find they wear off too quickly. Endorses increased draining of "yellow-white" fluid from the primary wound on the buttock and has difficulty performing wound care due to the location of the wound. Endorses some nausea and chills at home but no recorded or subjective fevers. No other new infectious symptoms such as congestion, cough, abdominal pain, diarrhea, dysuria. In the ED, he was afebrile and hemodynamically stable with heart rate of 85, BP 106/64, respiratory rate 16, saturating 99% on room air. Labs were remarkable for worsening leukocytosis with WBC 17.5 (12.3 on discharge), hemoglobin 10.5, platelets 721 (increased from 635 on discharge), and Cr 1.69 (improved from 1.[address] pelvis was remarkable for left gluteal skin thickening and ulceration, with phlegmon and fluid extending from the skin abnormality into the gluteus randell muscle, large area of phlegmon/abscess within the gluteus randell. Patient was started on Vanc/Zosyn and received IV Dilaudid for pain as well as a 1 L NS bolus. He was evaluated by ACS in the ED, who did not believe there was any indication for surgical intervention and recommended dermatology consultation. Medications prior to admission: Prior to Admission medications Medication Sig Start Date End Date Taking? Authorizing Provider acetaminophen (Tylenol) 325 mg tablet Take 3 tablets (975 mg) by mouth every 8 hours. 09/17/24 10/17/24 Lia Prado MD amoxicillin-pot clavulanate (Augmentin) 875-125 mg tablet Take 1 tablet by mouth 2 times a day for 21 days. 09/17/24 10/08/24 Lia Prado MD clindamycin (Cleocin T) 1 % lotion Apply topically 2 times a day. 09/17/24 10/17/24 Lia Prado MD doxycycline (Vibra-Tabs) 100 mg tablet Take 1 tablet (100 mg) by mouth 2 times a day. Take with a full glass of water and do not lie down for at least 30 minutes after. 09/20/24 10/20/24 Ronna Carpenter APRN-NEHAL nicotine polacrilex (Nicorette) 2 mg gum Chew 1 each (2 mg) every 2 hours if needed for smoking cessation. 09/17/24 Lia Prado MD ondansetron ODT (Zofran-ODT) 4 mg disintegrating tablet Dissolve 1 tablet (4 mg) in the mouth every 8 hours if needed for nausea. 09/17/24 Lia Prado MD polyethylene glycol (Glycolax, Miralax) 17 gram packet Take 17 g by mouth once daily. 09/18/24 10/18/24 Lia Prado MD Study STOP-HS1 [id number] povorcitinib 45mg or 75mg tablet Take 1 tablet by mouth once daily. Preferably in the morning, with a full glass of water. 02/29/24 Kimber Last MD Study STOP-HS1 [id number] povorcitinib 45mg or 75mg tablet Take 1 tablet by mouth once daily. Preferably in the morning, with a full glass of water. 04/04/24 Kimber Last MD Study STOP-HSRedd [id number] povorcitinib 45mg or 75mg tablet Take 1 tablet by mouth once daily. Preferably in the morning, with a full glass of water. 04/12/24 Kimber Last MD Study STOP-HS1 [id number] povorcitinib 45mg or 75mg tablet Take 1 tablet by mouth once daily. Preferably in the morning, with a full glass of water. 05/27/24 Marlon Hughes MD Study STOP-HS1 [id number] povorcitinib 45mg or 75mg tablet Take 1 tablet by mouth once daily. Preferably in the morning, with a full glass of water. 07/08/24 Marlon Hughes MD Study STOP-HS1 [id number] povorcitinib 45mg or 75mg tablet Take 1 tablet by mouth once daily. Preferably in the morning, with a full glass of water. 08/20/24 Marlon Hughes MD Study STOP-HS1 [id number] povorcitinib 45mg or 75mg tablet Take 1 tablet by mouth once daily. Preferably in the morning, with a full glass of water. 09/30/24 Marlon Hughes MD Study STOP-HS1 [id number] povorcitinib 45mg, 75mg or placebo tablet Take 1 tablet by mouth once daily. Preferably in the morning, with a full glass of water. 12/11/23 Kimber Last MD Study STOP-HS1 [id number] povorcitinib 45mg, 75mg or placebo tablet Take 1 tablet by mouth once daily. Preferably in the morning, with a full glass of water. 12/29/23 Kimber Last MD Study STOP-HS1 [id number] povorcitinib 45mg, 75mg or placebo tablet Take 1 tablet by mouth once daily. Preferably in the morning, with a full glass of water. 01/16/24 Kimber Last MD Study STOP-HS1 [id number] povorcitinib 45mg, 75mg or placebo tablet Take 1 tablet by mouth once daily. Preferably in the morning, with a full glass of water. 02/09/24 Kimber Last MD varenicline (Chantix) 1 mg tablet Take 0.5 tablets (0.5 mg) by mouth 2 times a day for 4 days, THEN 1 tablet (1 mg) 2 times a day. Do not start before September 18, 2024. 09/18/24 12/07/24 Lia Prado MD Allergies: No Known Allergies Past medical history: As per HPI Surgical history: He has no past surgical history on file. Family history: No family history on file. Social history: reports that he has been smoking cigarettes. He started smoking about 38 years ago. He has a 38.1 pack-year smoking history. He has never used smokeless tobacco. He reports that he does not use drugs. Review of systems: As per HPI, otherwise negative Vitals: Vitals: 10/11/24 0426 BP: 93/60 Pulse: 70 Resp: 18 Temp: SpO2: 94% Physical exam: Constitutional: Well-developed male in no acute distress. Lying in ED bed. HEENT: Normocephalic, atraumatic. PERRL. EOMI. Respiratory: CTA bilaterally. No wheezes, rales, or rhonchi. Normal respiratory effort. Cardiovascular: RRR. No murmurs, gallops, or rubs. No JVD. Radial pulses 2+. Abdominal: Soft, nondistended, nontender to palpation. Bowel sounds present. No hepatosplenomegaly or masses. Neuro: Alert and oriented x3, moving extremities equally. MSK: No LE edema bilaterally. Skin: Warm, dry. Area in left buttock and gluteal cleft with multiple HS pockmarks and fistula tracts. On the posterior upper thigh there is a wound actively draining pus. Mid buttock 2-3 cm open wound packed with dressing. Psych: Appropriate mood and affect. Labs: Results from last 72 hours Lab Units 10/10/24 1617 WBC AUTO x10*3/uL 17.5* HEMOGLOBIN g/dL 10.5* HEMATOCRIT % 31.9* PLATELETS AUTO x10*3/uL 721* INR 1.2* SODIUM mmol/L 139 POTASSIUM mmol/L 4.1 CHLORIDE mmol/L 104 CO2 mmol/L 23 BUN mg/dL 21 CREATININE mg/dL 1.69* GLUCOSE mg/dL 105* CALCIUM mg/dL 10.4 ALBUMIN g/dL 3.8 ALK PHOS U/L 79 ALT U/L 14 AST U/L 9 BILIRUBIN TOTAL mg/dL 0.2 Imaging: CT pelvis w IV contrast Result Date: 10/10/2024 Interpreted By: Beronica Valentin and Kamau Nyokabi STUDY: CT of pelvis with out contrast INDICATION: Signs/Symptoms:Left gluteal abscess COMPARISON: None. ACCESSION NUMBER(S): [id number] ORDERING CLINICIAN: MACK GRADY TECHNIQUE: Axial CT of pelvis was performed without intravenous contrast. Sagittal and coronal two-dimensional reformats were obtained. FINDINGS: Soft tissues: There is marked skin thickening with within the left lower gluteal soft tissues which extends into the proximal left thigh with underlying subcutaneous stranding. There is a 2.0 x 1.2 cm x 1.2 cm focal ulceration along the left posteroinferior gluteal soft tissues (series 201, image 155). The soft tissue at fluid tract extends from the skin/subcutaneous abnormality into the left gluteus randell muscle. The muscle is enlarged, heterogeneously enhancing with the serpiginous fluid pockets consistent with phlegmon/abscess. This measures up to 9.2 x 5.7 cm in transaxial dimension (series 201, image 144) by at least 13.2 cm longitudinally (series 207, image 174). No soft tissue gas. No infiltration of the intramuscular fascia within the proximal left thigh. Bones: Bilateral hip joints and sacroiliac joints are intact. No acute fractures. No cortical erosions or irregularities. Joint: No significant joint effusion. Intra-abdominal pelvis: Multiple enlarged left inguinal, left pelvic, and intra-abdominal lymph nodes. For example: There is a large left inguinal lymph node measuring 1.6 cm (series 201, image 115), enlarged left pelvic sidewall lymph node at the level of the external iliac artery measuring 1.6 cm (series 201, image 91), and a right-sided pelvic wall lymph node measuring 1.3 cm (series 201, image 86). These are likely reactive. Partially visualized colon and small bowel are within normal limits. The bladder is within normal limits. 1. Left gluteal skin thickening and ulceration, with phlegmon and fluid extending from the skin abnormality into the gluteus randell muscle. Large area of phlegmon/abscess within the gluteus randell as detailed above. 2. No evidence of osteomyelitis. I personally reviewed the images/study and I agree with Dr. Kinjal Hankins findings as stated. This study was interpreted at [place], [place] Signed by: Beronica Valentin 10/10/2024 11:03 PM Dictation workstation: [id number] XR chest 1 view Result Date: 10/10/2024 Interpreted By: Perry Baires, STUDY: XR CHEST 1 VIEW INDICATION: Signs/Symptoms:cough. COMPARISON: September 13, 2024 ACCESSION NUMBER(S): [id number] ORDERING CLINICIAN: KISHORE GUTIERREZ FINDINGS: Previous band of right basilar airspace disease has nearly completely resolved with only a tiny amount of residual. No new consolidation or edema. No effusion or pneumothorax. Previous band of right basilar airspace disease has nearly completely resolved with only a tiny amount of residual. No new consolidation or edema. Signed by: Perry Baires 10/10/2024 5:20 PM Dictation workstation: [id number] Assessment and Plan: Kevan La is a 49 y.o. male presenting with PMH of severe hidradenitis supprativa (disease on left buttock and gluteal fold) on STOP HS-301 trial (povorcitinib, small molecule JAK1 inhibitor) presenting with worsening leukocytosis with concern for HS wound infection. Generally well appearing without hemodynamic instability c/f systemic infection. #Hidradenitis suppurativa #Leukocytosis #History of Jak1 inhibitor treatment - Last dose of povorcitinib 10/10 - ACS consulted, no intervention for abscess/phlegmon on their end Plan: - c/w vanc/zosyn - wound culture - fu blood cultures - derm consult in AM - hold povorcitinib - consider plastic surgery consult - Tylenol, oxycodone PRN for pain - fu CRP, ESR #PARUL vs CKD - PARUL vs CKD, no Cr baseline prior to 08/2024 - pre-renal from poor PO intake vs related to frequent NSAID use - Cr improved compared to 09/17 - Cr 1.69 on admission - UA bland Plan: - discontinue NSAIDs - fu urine electrolytes - consider renal US, though on recent CT A/P no hydronephrosis or renal abnormality #Allergic Rhinitis -Cetirizine 10 mg #MEGAN -fu iron studies -Hold oral iron for now #Tobacco use -inquire about Chantix status in AM Diet: regular DVT prophylaxis: SCD Code status: FULL CODE confirmed on admission NOK: Omkar La (brother, ) Patient and plan to be formally discussed with attending physician in the AM. Makayla Olvera MD Internal Medicine PGY-2 Cosigned by Gilbert Sylvester MD at 10/11/2024 10:30 AM EST Associated attestation - Gilbert Sylvester MD - 10/11/2024 10:30 AM EST I saw and evaluated the patient. I personally obtained the gomez and critical portions of the history and physical exam or was physically present for gomez and critical portions performed by the resident/fellow. I reviewed the resident/fellow's documentation and discussed the patient with the resident/fellow. I agree with the resident/fellow's medical decision making as documented in the note. documented in this encounter [facility] Work Phone: 10-10-2024 Emergency department Note Images from the original note were not included. CC: Wound Check HPI: Patient is a 49-year-old male with a past medical history of complicated hidradenitis suppurativa on STOP HS-301 trial (povorcitinib, small molecule JAK1 inhibitor) and Augmentin who presented to the ED for wound check. Patient noted over the past week he has noted significant pain of the left [place] where his previous hidradenitis suppurativa was. He has noted nausea and nonbloody emesis secondary to pain and is overall feeling unwell as well as weak. Notes that he has been taking his medications as prescribed. Patient notes that he has not had insurance living his ability to follow-up as well as wound care. Denied alcohol and illicit substance use. Denied fevers, chills, chest pain, difficulty breathing, headache, trauma, falls, abdominal pain, neck pain, back pain, dysuria, and abnormal bowel movements. Limitations to history: None Independent historian(s): Patient Records Reviewed: Recent available ED and inpatient notes reviewed in EMR. PMHx/PSHx: Per HPI. - has no past medical history on file. - has no past surgical history on file. Medications: Reviewed in EMR. See EMR for complete list of medications and doses. Allergies: Patient has no known allergies. Social History: - Tobacco: reports that he has been smoking cigarettes. He started smoking about 38 years ago. He has a 38.1 pack-year smoking history. He has never used smokeless tobacco. - Alcohol: has no history on file for alcohol use. - Illicit Drugs: reports no history of drug use. ROS: Per HPI. ? Triage Vitals: T 36.7 C (98 F) HR 85 BP 106/64 RR 16 O2 99 % Physical Exam Vitals and nursing note reviewed. Constitutional: General: He is not in acute distress. HENT: Head: Normocephalic and atraumatic. Nose: Nose normal. Mouth/Throat: Mouth: Mucous membranes are moist. Eyes: Conjunctiva/sclera: Conjunctivae normal. Cardiovascular: Rate and Rhythm: Normal rate and regular rhythm. Pulses: Normal pulses. Pulmonary: Effort: Pulmonary effort is normal. No respiratory distress. Breath sounds: Normal breath sounds. Abdominal: Palpations: Abdomen is soft. Tenderness: There is no abdominal tenderness. Skin: General: Skin is warm. Comments: TTP and diffuse pockets of fluctuance of the left glute. Appears to have an abscess that is actively draining pus. Please see attached picture below. Neurological: General: No focal deficit present. Mental Status: He is alert. ? Labs: Labs Reviewed CBC WITH AUTO DIFFERENTIAL - Abnormal Result Value WBC 17.5 (*) nRBC 0.0 RBC 3.82 (*) Hemoglobin 10.5 (*) Hematocrit 31.9 (*) MCV 84 MCH 27.5 MCHC 32.9 RDW 17.4 (*) Platelets 721 (*) Neutrophils % 71.1 Immature Granulocytes %, Automated 2.3 (*) Lymphocytes % 15.6 Monocytes % 9.1 Eosinophils % 1.4 Basophils % 0.5 Neutrophils Absolute 12.45 (*) Immature Granulocytes Absolute, Automated 0.40 Lymphocytes Absolute 2.73 Monocytes Absolute 1.60 (*) Eosinophils Absolute 0.25 Basophils Absolute 0.08 COMPREHENSIVE METABOLIC PANEL - Abnormal Glucose 105 (*) Sodium 139 Potassium 4.1 Chloride 104 Bicarbonate 23 Anion Gap 16 Urea Nitrogen 21 Creatinine 1.69 (*) eGFR 49 (*) Calcium 10.4 Albumin 3.8 Alkaline Phosphatase 79 Total Protein 7.9 AST 9 Bilirubin, Total 0.2 ALT 14 COAGULATION SCREEN - Abnormal Protime 13.8 (*) INR 1.2 (*) aPTT 32 Narrative: The APTT is no longer used for monitoring Unfractionated Heparin Therapy. For monitoring Heparin Therapy, use the Heparin Assay. BLOOD GAS VENOUS FULL PANEL - Abnormal POCT pH, Venous 7.43 POCT pCO2, Venous 38 (*) POCT pO2, Venous 43 POCT SO2, Venous 78 (*) POCT Oxy Hemoglobin, Venous 74.1 POCT Hematocrit Calculated, Venous 31.0 (*) POCT Sodium, Venous 137 POCT Potassium, Venous 4.7 POCT Chloride, Venous 106 POCT Ionized Calicum, Venous 1.31 POCT Glucose, Venous 109 (*) POCT Lactate, Venous 1.2 POCT Base Excess, Venous 0.9 POCT HCO3 Calculated, Venous 25.2 POCT Hemoglobin, Venous 10.2 (*) POCT Anion Gap, Venous 11.0 Patient Temperature 37.0 FiO2 21 TYPE AND SCREEN ABO TYPE A Rh TYPE POS ANTIBODY SCREEN NEG Imaging: CT pelvis w IV contrast XR chest 1 view Final Result Previous band of right basilar airspace disease has nearly completely resolved with only a tiny amount of residual. No new consolidation or edema. Signed by: Perry Baires 10/10/2024 5:20 PM Dictation workstation: [id number] MDM: Patient is a 49-year-old male with a past medical history of complicated hidradenitis suppurativa on STOP HS-301 trial (povorcitinib, small molecule JAK1 inhibitor) and Augmentin who presented to the ED for wound check. Patient presented HDS. Physical exam finding significant for TTP and diffuse pockets of fluctuance of the left glute with an abscess that appears to be actively draining pus. Low clinical concern for sepsis, acute physically traumatic process, acute intra-abdominal process, and acute cardiac process. Patient administered analgesia. Blood cultures obtained. Given that patient is hemodynamically stable, empiric antibiotics will be held initially. Patient administered a liter of normal saline. Please see ED course and disposition for remainder of care. ED Course: ED Course as of 10/12/24 141 Key Oct 10, [id number] XR chest 1 view IMPRESSION: Previous band of right basilar airspace disease has nearly completely resolved with only a tiny amount of residual. No new consolidation or edema. [] 2013 Comprehensive metabolic panel(!) Metabolic panel for renal function near baseline. [] 2337 CT pelvis w IV contrast IMPRESSION: 1. Left gluteal skin thickening and ulceration, with phlegmon and fluid extending from the skin abnormality into the gluteus randell muscle. Large area of phlegmon/abscess within the gluteus randell as detailed above. 2. No evidence of osteomyelitis. [] ED Course User Index [] Mack Grady MD Diagnoses as of 10/12/24 1419 Hidradenitis suppurativa Abscess Social Determinants Limiting Care: None identified Disposition: General surgery was consulted. General surgery does not recommend acute surgical intervention at this time. They are recommending medicine admission and dermatology consultation. Patient initiated on vancomycin and Zosyn. Discussed ED findings and admission with the patient. He stated understanding and agreement the plan. All questions were answered. Discussed patient presentation with admitting team. Patient admitted to medicine in stable condition. Mack Grady MD Emergency Medicine PGY-3 [facility] Comment: Please note this report has been produced using speech recognition software and may contain errors related to that system including errors in grammar, punctuation, and spelling as well as words and phrases that may be inappropriate. If there are any questions or concerns please feel free to contact the dictating provider for clarification. Procedures ? [employer] last updated 10/10/2024 8:50 PM Mack Grady MD Resident 10/12/24 1527 -- This patient was seen by the resident physician. I have seen and examined the patient, agree with the workup, evaluation, management and diagnosis. The care plan has been discussed and I concur. My assessment reveals the following: HPI: Patient is a 49 y/o male with hidradenitis suppurativa, most treatment in [facility] where he used to live, has lived in [facility] for past 2 years, presenting with persistent left gluteal/pelvis HS flare consisting of sig pain and purulent discharge from open wound. Was admitted for a few days in Aug 2024 and is currently on outpatient abx, but getting worse to the point that she feels generally week as well as nauseated. No F/C. No CP/SOB. Did not get operative intervention during Dec admission. PE: Vital signs reviewed in nursing triage note, EMR flowsheets, and at patient's bedside GEN: Patient is awake, alert, calm, cooperative, and in moderate painful distress. HEAD: Normocephalic and atraumatic. EYES: Anicteric sclera. MOUTH: Mucous membranes moist. CV: Regular rate and rhythm. (+) s1/s2. No murmurs/rubs/gallops. PULM: CTAB. No wheezes, rales, or crackles. GI: Soft, non-tender, non-distended without rebound or guarding. EXT: No deformities noted. Full range of motion at all major joints. Non-tender. NEURO: Moves all extremities. No gross focal deficits. Sensation grossly intact throughout. SKIN: Warm, dry. No ecchymosis. Open HS wound on left buttock with active purulent drainage, but no bleeding, moderately TTP. Labs Reviewed BLOOD CULTURE - Abnormal Result Value Blood Culture Staphylococcus hominis (*) BLOOD CULTURE BOTTLE Positive Aerobic Bottle Gram Stain Gram positive cocci, clusters (*) TISSUE/WOUND CULTURE/SMEAR - Abnormal Tissue/Wound Culture/Smear Value: (4+) Abundant Mixed Gram-Positive and Gram-Negative Bacteria Gram Stain No polymorphonuclear leukocytes seen (*) Gram Stain (3+) Moderate Gram positive cocci (*) CBC WITH AUTO DIFFERENTIAL - Abnormal WBC 17.5 (*) nRBC 0.0 RBC 3.82 (*) Hemoglobin 10.5 (*) Hematocrit 31.9 (*) MCV 84 MCH 27.5 MCHC 32.9 RDW 17.4 (*) Platelets 721 (*) Neutrophils % 71.1 Immature Granulocytes %, Automated 2.3 (*) Lymphocytes % 15.6 Monocytes % 9.1 Eosinophils % 1.4 Basophils % 0.5 Neutrophils Absolute 12.45 (*) Immature Granulocytes Absolute, Automated 0.40 Lymphocytes Absolute 2.73 Monocytes Absolute 1.60 (*) Eosinophils Absolute 0.25 Basophils Absolute 0.08 COMPREHENSIVE METABOLIC PANEL - Abnormal Glucose 105 (*) Sodium 139 Potassium 4.1 Chloride 104 Bicarbonate 23 Anion Gap 16 Urea Nitrogen 21 Creatinine 1.69 (*) eGFR 49 (*) Calcium 10.4 Albumin 3.8 Alkaline Phosphatase 79 Total Protein 7.9 AST 9 Bilirubin, Total 0.2 ALT 14 COAGULATION SCREEN - Abnormal Protime 13.8 (*) INR 1.2 (*) aPTT 32 Narrative: The APTT is no longer used for monitoring Unfractionated Heparin Therapy. For monitoring Heparin Therapy, use the Heparin Assay. BLOOD GAS VENOUS FULL PANEL - Abnormal POCT pH, Venous 7.43 POCT pCO2, Venous 38 (*) POCT pO2, Venous 43 POCT SO2, Venous 78 (*) POCT Oxy Hemoglobin, Venous 74.1 POCT Hematocrit Calculated, Venous 31.0 (*) POCT Sodium, Venous 137 POCT Potassium, Venous 4.7 POCT Chloride, Venous 106 POCT Ionized Calicum, Venous 1.31 POCT Glucose, Venous 109 (*) POCT Lactate, Venous 1.2 POCT Base Excess, Venous 0.9 POCT HCO3 Calculated, Venous 25.2 POCT Hemoglobin, Venous 10.2 (*) POCT Anion Gap, Venous 11.0 Patient Temperature 37.0 FiO2 21 CBC WITH AUTO DIFFERENTIAL - Abnormal WBC 14.3 (*) nRBC 0.0 RBC 3.40 (*) Hemoglobin 9.6 (*) Hematocrit 28.7 (*) MCV 84 MCH 28.2 MCHC 33.4 RDW 17.2 (*) Platelets 650 (*) Neutrophils % 60.8 Immature Granulocytes %, Automated 1.2 (*) Lymphocytes % 23.6 Monocytes % 11.3 Eosinophils % 2.7 Basophils % 0.4 Neutrophils Absolute 8.67 (*) Immature Granulocytes Absolute, Automated 0.17 Lymphocytes Absolute 3.37 Monocytes Absolute 1.62 (*) Eosinophils Absolute 0.39 Basophils Absolute 0.06 RENAL FUNCTION PANEL - Abnormal Glucose 79 Sodium 138 Potassium 4.1 Chloride 106 Bicarbonate 24 Anion Gap 12 Urea Nitrogen 20 Creatinine 1.60 (*) eGFR 52 (*) Calcium 9.4 Phosphorus 3.8 Albumin 3.3 (*) URINALYSIS WITH REFLEX CULTURE AND MICROSCOPIC - Abnormal Color, Urine Light-Yellow Appearance, Urine Clear Specific [place], Urine 1.037 (*) pH, Urine 7.0 Protein, Urine NEGATIVE Glucose, Urine Normal Blood, Urine NEGATIVE Ketones, Urine NEGATIVE Bilirubin, Urine NEGATIVE Urobilinogen, Urine Normal Nitrite, Urine NEGATIVE Leukocyte Esterase, Urine NEGATIVE IRON AND TIBC - Abnormal Iron 24 (*) UIBC 194 TIBC 218 (*) % Saturation 11 (*) SEDIMENTATION RATE, AUTOMATED - Abnormal Sedimentation Rate >130 (*) C-REACTIVE PROTEIN - Abnormal C-Reactive Protein 7.72 (*) CBC WITH AUTO DIFFERENTIAL - Abnormal WBC 14.6 (*) nRBC 0.0 RBC 3.48 (*) Hemoglobin 9.5 (*) Hematocrit 30.8 (*) MCV 89 MCH 27.3 MCHC 30.8 (*) RDW 17.3 (*) Platelets 633 (*) Neutrophils % 69.2 Immature Granulocytes %, Automated 1.0 (*) Lymphocytes % 17.2 Monocytes % 9.5 Eosinophils % 2.5 Basophils % 0.6 Neutrophils Absolute 10.11 (*) Immature Granulocytes Absolute, Automated 0.15 Lymphocytes Absolute 2.52 Monocytes Absolute 1.39 (*) Eosinophils Absolute 0.36 Basophils Absolute 0.09 COMPREHENSIVE METABOLIC PANEL - Abnormal Glucose 100 (*) Sodium 136 Potassium 4.0 Chloride 101 Bicarbonate 25 Anion Gap 14 Urea Nitrogen 16 Creatinine 1.61 (*) eGFR 51 (*) Calcium 10.0 Albumin 3.5 Alkaline Phosphatase 66 Total Protein 7.4 AST 11 Bilirubin, Total 0.3 ALT 8 (*) BLOOD CULTURE - Normal Blood Culture No growth at 1 day MAGNESIUM - Normal Magnesium 2.19 FERRITIN - Normal Ferritin 259 VANCOMYCIN - Normal Vancomycin 13.6 Narrative: Vancomycin levels can be monitored according to area under the curve (AUC) or concentration (ug/mL). The preferred monitoring strategy is determined by the patient's renal function and indication for therapy. For AUC monitoring, a random vancomycin level should be interpreted in the context of AUC rather than the concentration at a single point in time. For concentration monitoring, a trough concentration drawn immediately prior to the next dose is preferred. Therapeutic ranges using concentration-guided results: Peak (all ages): 30.0-40.0 ug/mL Trough (all ages): 10.0-20.0 ug/mL TYPE AND SCREEN ABO TYPE A Rh TYPE POS ANTIBODY SCREEN NEG ELECTROLYTE PANEL, URINE Sodium, Urine Random 123 Sodium/Creatinine Ratio 89 Potassium, Urine Random 50 Potassium/Creatinine Ratio 36 Chloride, Urine Random 123 Chloride/Creatinine Ratio 89 Creatinine, Urine Random 138.4 URINALYSIS WITH REFLEX CULTURE AND MICROSCOPIC Narrative: The following orders were created for panel order Urinalysis with Reflex Culture and Microscopic. Procedure Abnormality Status --------- ------ Urinalysis with Reflex C...[[id number]] Abnormal Final result Extra Urine Rhodes Tube[[id number]] Final result Please view results for these tests on the individual orders. EXTRA URINE RHODES TUBE Extra Tube Hold for add-ons. TYPE AND SCREEN ABO TYPE A Rh TYPE POS ANTIBODY SCREEN NEG CT pelvis w IV contrast Final Result 1. Left gluteal skin thickening and ulceration, with phlegmon and fluid extending from the skin abnormality into the gluteus randell muscle. Large area of phlegmon/abscess within the gluteus randell as detailed above. 2. No evidence of osteomyelitis. I personally reviewed the images/study and I agree with Dr. Kinjal Hankins findings as stated. This study was interpreted at [place], [place] Signed by: Beronica Valentin 10/10/2024 11:03 PM Dictation workstation: [id number] XR chest 1 view Final Result Previous band of right basilar airspace disease has nearly completely resolved with only a tiny amount of residual. No new consolidation or edema. Signed by: Perry Baires 10/10/2024 5:20 PM Dictation workstation: [id number] Consult to Interventional Radiology (Results Pending) Medical Decision Making: - IVF - Labs - Pain meds - CXR - CT pelvis with IV contrast - ACS consult - IV abx - Admit. Differential Diagnoses Considered: HS flare, Abscess, Cellulitis. Chronic Medical Conditions Significantly Affecting Care: HS Independent Interpretation of Studies: I independently interpreted: CXR showing no acute cardiopulmonary disease. Escalation of Care: Appropriate for inpatient management Discussion of Management with Other Providers: I discussed the patient/results with: ACS MD Kishore Hill MD 10/12/24 1606 Cosigned by Kishore Gutierrez MD at 10/12/2024 4:06 PM EST Associated attestation - Kishore Gutierrez MD - 10/12/2024 4:06 PM EST The patient was seen by the resident/fellow. I have personally performed a substantive portion of the encounter. I have seen and examined the patient; agree with the workup, evaluation, MDM, management and diagnosis. The care plan has been discussed with the resident/fellow; I have reviewed the resident/fellow s note and agree with the documented findings with the exception/addition of the following: See above for my attestation note. Pt presents to the ED for a wound check of his L leg. Pt has a known wound on his upper thigh that was recently infected. Pt states that he thinks that it may be infected again. documented in this encounter [facility] Work Phone: 09-30-2024 History of Present illness Narrative Patient seen for Week 42 of STOP HS-301 trial by Marlon Hughes MD Noted that patient was admitted to the hospital since previous visit. Con meds and additional details of the serious adverse event placed in physical notes. Please see physical copy of notes located in subject binder for additional information. documented in this encounter [facility] Work Phone: 09-24-2024 History of Present illness Narrative Phone follow-up for patient hospitalized at for complications of hidraadenitis suppurativa at the end of August. Discharge September 17. He was on a clinical trial for his skin condition and was admitted to with worsening wounds and leukocytosis. Seen by dermatology. Discharged on Augmentin. Had slight acute kidney injury during his hospital stay. On the phone visit today he said he is doing okay except Tylenol every 8 hours is not adequate for his pain. Tolerating Augmentin. Wound is doing better. Continuing with smoking cessation. Ask about her back to work slip. Has not had his labs drawn yet. I told the patient to continue his Augmentin till he sees dermatology. Will do need to get his blood drawn to follow-up on his acute kidney injury. We did find a lab near where he lives. I told him he can take Tylenol every 6 hours. He needs to establish primary care we will put in referral. This follow-up will be with dermatology and primary care we will call him once we get the results of the labs documented in this encounter [facility] Work Phone: 09-17-2024 Nurse Note Discharge Note: VN went over AVS with Pt. Pt agreed and understood instructions. Pt is aware of follow up appts and blood work. Floor nurse removed IV and intact. Pt has all belongings at the bedside. Pt is awaiting Meds to Beds medication before discharge. [facility] 09-17-2024 Nurse Note Discharge Note: VN went over AVS with Pt. Pt agreed and understood instructions. Pt is aware of follow up appts and blood work. Floor nurse removed IV and intact. Pt has all belongings at the bedside. Pt is awaiting Meds to Beds medication before discharge. Pt is ready for discharge. Discharge paper is given, discharge instruction is given. All questions are answered at this time. Pt PIV is removed, wound dressing changed and education on how to clean and change wound dressing is given. Pt was transferred from [facility] in [place] for this admission. Pt stated his car is at [facility] and he has no means to get there. Pt does not have insurance to set up transport. Pt doesn't have any means of transportation to get to his car at [facility], so the floor is providing LYFT pickup. Pt meds to beds is delivered. Pt is waiting for transport to leave the floor. documented in this encounter [facility] Work Phone: 09-17-2024 Nurse Note Pt is ready for discharge. Discharge paper is given, discharge instruction is given. All questions are answered at this time. Pt PIV is removed, wound dressing changed and education on how to clean and change wound dressing is given. Pt was transferred from [facility] in [place] for this admission. Pt stated his car is at [facility] and he has no means to get there. Pt does not have insurance to set up transport. Pt doesn't have any means of transportation to get to his car at [facility], so the floor is providing LYFT pickup. Pt meds to beds is delivered. Pt is waiting for transport to leave the floor. [facility] 09-17-2024 History of Present illness Narrative PRIOR AUTHORIZATION TECHNICIAN met with patient at bedside to address questions. Patient expressed interest on if he would be approved for disability. PRIOR AUTHORIZATION TECHNICIAN encouraged patient to call or go online to initiate the application process. Patient had disability resources at bedside. PRIOR AUTHORIZATION TECHNICIAN notified patient that the resources explains how and where to submit application and explains what we be needed and what to expect throughout the process. Patient verbalized understanding and thanked SW. PT recommends no needs. PRIOR AUTHORIZATION TECHNICIAN will sign off. SOPHIA Ardon 09/17/24 1213 Discharge Planning Living Arrangements Alone Support Systems None Assistance Needed none Type of Residence Private residence Do you have animals or pets at home? No Who is requesting discharge planning? Provider Home or Post Acute Services None Expected Discharge Disposition Home Does the patient need discharge transport arranged? Yes RoundTrip coordination needed? No Financial Resource Strain How hard is it for you to pay for the very basics like food, housing, medical care, and heating? Very Hard Housing Stability In the last 12 months, was there a time when you were not able to pay the mortgage or rent on time? Y In the past 12 months, how many times have you moved where you were living? 0 At any time in the past 12 months, were you homeless or living in a custodial (including now)? N Transportation Needs In the past 12 months, has lack of transportation kept you from medical appointments or from getting medications? no In the past 12 months, has lack of transportation kept you from meetings, work, or from getting things needed for daily living? No TCC ASSESSMENT: Met with pt and introduced myself as floor care technician and member of the Care Transitions team for discharge planning. Pt stated he lives at home alone. He is independent with ADL's/iADL's, walks without use of an assistive device, and drives. Pt stated all of [place] and his fiance from [place] in 10/2023 so he has no family/friend support at home. Pt stated he lost his job back in 06/2024 which resulted with termination of his [employer] medical insurance policy. Pt denies any falls. Pt stated he feels safe at home. Pt's address, phone number, and emergency contact information was verified. SW was consulted on 09/16 for financial concerns (assistance with disability, lack of insurance). Home care: none. DME: Pt stated the previous home [employer] was "convalescent" so bathroom is equipped with grab bars on the shower and wall. mechanical engineering manager: none. PCP: Pt does not have a PCP and hasn't been seen by one in about 3-4 years. Transport to [facility]: Pt drives himself. Pharmacy: [facility]. Pt stated she only prescriptions he takes at home are STOP-HS 301 which is part of clinical free trial from Dermatology. Discharge Planning: Pt presenting from [facility] for new wound infection 2/2 hidradenitis suppurativa. Per medical team plan for discharge home today on oral Augmentin and PCP/Dermatology follow up appointments. Per HRS they accepted pt for [place] Medicaid and will fax auth letter to [facility] for release of his prescriptions. Pt stated he will perform his own wound to L buttock with instructions from nursing. Nursing updated and asked to perform wound care teaching + send pt home with wound care supplies as he will not be able to receive home health care until [place] Medicaid finalized. Pt voiced no additional questions or concerns regarding discharge planning. clinical nursing coordinator will continue to follow for discharge planning needs. Lorezna Morales RN Transitional Life Care Planner (TCC) [phone] or [phone] Kevan La is a 49 y.o. male on day 4 of admission presenting with Wound infection. Subjective No acute event overnight. Patient describes the buttock pain associated with his HS as much improved than when he presented on admission. He states he would like to go home today if possible. He denies fever, chills, nausea, vomiting, diarrhea, chest pain, shortness of breath. His last bowel movement was Monday. Objective Last Recorded Vitals BP 103/56 Pulse 69 Temp 36.1 C (97 F) (Temporal) Resp 17 Wt 101 kg (222 lb 3.6 oz) SpO2 96% Intake/Output last 3 Shifts: Intake/Output Summary (Last 24 hours) at 09/17/2024 1122 Last data filed at 09/17/2024 1009 Gross per 24 hour Intake 100 ml Output -- Net 100 ml Admission Weight Weight: 101 kg (222 lb 3.6 oz) (09/13/24 2141) Daily Weight 09/13/24 : 101 kg (222 lb 3.6 oz) Image Results ECG 12 Lead Normal sinus rhythm Normal ECG When compared with ECG of 29-FEB-2024 11:08, No significant change was found Physical Exam Constitutional: Appearance: Normal appearance. HENT: Head: Normocephalic and atraumatic. Mouth/Throat: Mouth: Mucous membranes are moist. Eyes: Conjunctiva/sclera: Conjunctivae normal. Cardiovascular: Rate and Rhythm: Normal rate and regular rhythm. Pulses: Normal pulses. Heart sounds: Normal heart sounds. No murmur heard. Pulmonary: Effort: Pulmonary effort is normal. No respiratory distress. Breath sounds: Normal breath sounds. No stridor. No wheezing, rhonchi or rales. Abdominal: General: Abdomen is flat. There is no distension. Palpations: Abdomen is soft. There is no mass. Tenderness: There is no abdominal tenderness. There is no guarding or rebound. Hernia: No hernia is present. Musculoskeletal: General: No swelling or tenderness. Right lower leg: No edema. Left lower leg: No edema. Skin: General: Skin is warm and dry. Comments: Left posterior thigh and buttock with multiple HS pockmarks, covered by a wound dressing with minimal purulence. Mild tenderness to palpation. Neurological: General: No focal deficit present. Mental Status: He is alert and oriented to person, place, and time. Relevant Results Results for orders placed or performed during the hospital encounter of 09/13/24 (from the past 24 hours) CBC and Auto Differential Result Value Ref Range WBC 12.3 (H) 4.4 - 11.3 x10*3/uL nRBC 0.0 0.0 - 0.0 /100 WBCs RBC 3.13 (L) 4.50 - 5.90 x10*6/uL Hemoglobin 8.5 (L) 13.5 - 17.5 g/dL Hematocrit 27.5 (L) 41.0 - 52.0 % MCV 88 80 - 100 fL MCH 27.2 26.0 - 34.0 pg MCHC 30.9 (L) 32.0 - 36.0 g/dL RDW 17.2 (H) 11.5 - 14.5 % Platelets 635 (H) 150 - 450 x10*3/uL Neutrophils % 67.3 40.0 - 80.0 % Immature Granulocytes %, Automated 1.8 (H) 0.0 - 0.9 % Lymphocytes % 20.3 13.0 - 44.0 % Monocytes % 6.8 2.0 - 10.0 % Eosinophils % 3.3 0.0 - 6.0 % Basophils % 0.5 0.0 - 2.0 % Neutrophils Absolute 8.27 (H) 1.20 - 7.70 x10*3/uL Immature Granulocytes Absolute, Automated 0.22 0.00 - 0.70 x10*3/uL Lymphocytes Absolute 2.50 1.20 - 4.80 x10*3/uL Monocytes Absolute 0.83 0.10 - 1.00 x10*3/uL Eosinophils Absolute 0.41 0.00 - 0.70 x10*3/uL Basophils Absolute 0.06 0.00 - 0.10 x10*3/uL Renal Function Panel Result Value Ref Range Glucose 85 74 - 99 mg/dL Sodium 140 136 - 145 mmol/L Potassium 4.5 3.5 - 5.3 mmol/L Chloride 106 98 - 107 mmol/L Bicarbonate 23 21 - 32 mmol/L Anion Gap 16 10 - 20 mmol/L Urea Nitrogen 15 6 - 23 mg/dL Creatinine 1.89 (H) 0.50 - 1.30 mg/dL eGFR 42 (L) >60 mL/min/1.73m*2 Calcium 9.1 8.6 - 10.6 mg/dL Phosphorus 4.2 2.5 - 4.9 mg/dL Albumin 3.1 (L) 3.4 - 5.0 g/dL Magnesium Result Value Ref Range Magnesium 2.44 (H) 1.60 - 2.40 mg/dL Assessment/Plan Kevan La is a 49 y.o. male presenting with PMH of severe hidradenitis supprativa (on STOP HS-301 trial (povorcitinib), small molecule JAK1 inhibitor) presenting with new wound infection from [facility] ED.Being treated currently with Vancomycin, Zosyn, and clindamycin topical. Patient is symptomatically much improved and will be discharged on a course of PO antibiotics (likely Augmentin and probenecid). 09/17/24 Update - Creatinine is 1.89 today (1.88 yesterday); possibly pre prerenal; possibly due to antibiotics and NSAIDs --> vancomycin stopped 09/16 - updated pain regimen: oxy 5mg q6hr prn as the first line. Holding Toradol given elevated Cr. - Skin culture grows no organism, wound culture showing gram positive cocci. Speciation pending - Derm following; appreciate recs - Wound dressings daily - Current abx regimen: Zosyn and clindamycin topical - Will likely discharge on Augmentin and probenecid PO, will discuss with dermatology prior to discharge. Close follow up scheduled #hidradenitis supprativa ::purulent drainage ::Leukocytosis (12.3) ::History of Jak1 inhibitor treatment ::CXR showed right basilar bandlike opacities felt to be atelectatic in nature Plan: -Last dose of povorcitinib was (09/14), will hold the medication for now per derm -consulted derm, ACS, wound care, appreciate recs -UA unremarkable, no growth at 3 days -on zosyn, clindamycin lotion - Will likely discharge on Augmentin and probenecid PO, will discuss with dermatology prior to discharge -Acetaminophen 975 mg Q8H for pain, Ketorolac for breakthrough -pending Fungitell, galactomannan, histoplasma, cryptococcal antigen #PARUL ::Creatinine 1.89 from 1.88 yesterday -Stopped vancomycin 09/16 #Nausea/Vomiting/SOB after exertion #Cough -No history of syncope -Outside hospital with normal troponins, elevated BNP (589) -EKG on admission wnl -Lipid panel neg, A1c 6% - neg flu and covid panel #Allergic Rhinitis -Cetirizine 10 mg #MEGAN -Hold oral iron for now F: prn E: Goal Mg>2, Phos >3, K >4 N: regular diet A: PIV DVT ppx: SCD GI ppx: none Bowel care: none Catheter: none Code: Full Code NOK: Omkar La (brother, ) Phil Tatum MD Internal Medicine-Preliminary, PGY1 Cosigned by Mica Ly MD at 09/17/2024 1:52 PM EST Associated attestation - Mica Ly MD - 09/17/2024 1:52 PM EST I saw and evaluated the patient. I personally obtained the gomez and critical portions of the history and physical exam or was physically present for gomez and critical portions performed by the resident/fellow. I reviewed the resident/fellow's documentation and discussed the patient with the resident/fellow. I agree with the resident/fellow's medical decision making as documented in the note. Mr. La is a 49 y/o man with severe hidradenitis suppurativa (currently enrolled in STOP HS-301 clinical trial) who presents with bacterial super-infection of underlying HS lesions in groin. Seen by Dermatology with plan for PO antibiotic course, HOLD further clinical trial medications, and close follow-up as outpatient. Will plan for discharge today on PO Augmentin, Mr. La has upcoming outpatient appointments with Dermatology (09/20/24) and Infectious Disease (09/24/24). Remainder as above. Mica Ly MD [facility] Hospitalist Physical Therapy Physical Therapy Evaluation Patient Name: Kevan La Department: [place] [id number] Room: [address] [place] [address] Today's Date: 09/16/2024 Time Calculation Start Time: 1240 Stop Time: 1250 Time Calculation (min): 10 min Assessment/Plan PT Assessment PT Assessment Results: (No current impairments.) Rehab Prognosis: (No current rehab needs.) Barriers to Discharge Home: No anticipated barriers Evaluation/Treatment Tolerance: Patient tolerated treatment well End of Session Communication: Bedside nurse Assessment Comment: 49 y.o. M admitted with new wound though otherwise demonstrating grossly independent gait and function. Pt currently without acute PT needs at this time and no PT needs after discharge. End of Session Patient Position: Bed, 3 rail up, Alarm off, not on at start of session IP OR SWING BED PT PLAN Inpatient or Swing Bed: Inpatient PT Plan Treatment/Interventions: (No planned treatments/interventions.) PT Plan: PT Eval only PT Eval Only Reason: At baseline function PT Frequency: PT eval only PT Discharge Recommendations: No further acute PT, No PT needed after discharge Equipment Recommended upon Discharge: (no equipment needs) PT Recommended Transfer Status: Independent PT - OK to Discharge: Yes Subjective General Visit Information: General Reason for Referral: wound infection Past Medical History Relevant to Rehab: 49 y.o. male presenting with PMH of severe hidradenitis supprativa, presenting with new wound infection. Family/Caregiver Present: No Patient Position Received: Up in bathroom Preferred Learning Style: verbal, auditory General Comment: Pt in bathroom on entry. Pleasant and cooperative. Willing to work with PT. Home Living: Home Living Type of Home: House Lives With: Alone Home Adaptive Equipment: None Home Layout: One level Home Access: Stairs to enter with rails Entrance Stairs-Number of Steps: 3 Prior Level of Function: Prior Function Per Pt/Caregiver Report Level of Mckin[place]: Independent with ADLs and functional transfers ADL Assistance: Independent Homemaking Assistance: Independent Ambulatory Assistance: Independent Prior Function Comments: No concerns at baseline. Precautions: Precautions Medical Precautions: Fall precautions Objective Pain: Pain Assessment Pain Assessment: 0-10 0-10 (Numeric) Pain Score: 2 Pain Type: Acute pain Pain Location: Buttocks Cognition: Cognition Overall Cognitive Status: Within Functional Limits Orientation Level: Oriented X4 Attention: Within Functional Limits Insight: Within function limits Impulsive: Within functional limits General Assessments: Activity Tolerance Endurance: Tolerates 10 - 20 min exercise with multiple rests Sensation Light Touch: No apparent deficits Strength Strength Comments: Grossly >4+/5 throughout based on function. Strength Strength Comments: Grossly >4+/5 throughout based on function. Perception Inattention/Neglect: Appears intact Coordination Movements are Fluid and Coordinated: Yes Postural Control Postural Control: Within Functional Limits Static Sitting Balance Static Sitting-Balance Support: No upper extremity supported Static Sitting-Level of Assistance: Independent Static Standing Balance Static Standing-Balance Support: No upper extremity supported Static Standing-Level of Assistance: Close supervision Functional Assessments: Bed Mobility Bed Mobility: Yes Bed Mobility 1 Bed Mobility 1: Supine to sitting, Sitting to supine Level of Assistance 1: Independent Transfers Transfer: Yes Transfer 1 Transfer From 1: Sit to, Stand to Transfer to 1: Stand, Sit Transfer Level of Assistance 1: Close supervision Ambulation/Gait Training Ambulation/Gait Training Performed: Yes Ambulation/Gait Training 1 Surface 1: Level tile Device 1: No device Assistance 1: Close supervision Quality of Gait 1: Decreased step length, Antalgic Comments/Distance (ft) 1: 100ft Outcome Measures: [facility] Basic Mobility Turning from your back to your side while in a flat bed without using bedrails: None Moving from lying on your back to sitting on the side of a flat bed without using bedrails: None Moving to and from bed to chair (including a wheelchair): None Standing up from a chair using your arms (e.g. wheelchair or bedside chair): None To walk in hospital room: None Climbing 3-5 steps with railing: None Basic Mobility - Total Score: 24 Education Documentation Precautions, taught by Siva Beach PT at 09/16/2024 1:33 PM. Learner: Patient Readiness: Acceptance Method: Explanation Response: Verbalizes Understanding Mobility Training, taught by Siva Beach PT at 09/16/2024 1:33 PM. Learner: Patient Readiness: Acceptance Method: Explanation Response: Verbalizes Understanding Education Comments No comments found. [facility] reports patient is not insured and expressed interest in disability. [facility] was notified and [facility] confirmed patient is on their list to see today. PRIOR AUTHORIZATION TECHNICIAN attempted to provide patient with disability resources but patient was off the floor. Info left at head of bed. TCC notified. PT/OT ordered. Care Transitions will continue to follow. SOPHIA Ardon Vancomycin Dosing by Pharmacy- Cessation of Therapy Consult to pharmacy for vancomycin dosing has been discontinued by the prescriber, pharmacy will sign off at this time. Please call pharmacy if there are further questions or re-enter a consult if vancomycin is resumed. Fidencio Buchanan PharmD Kevan La is a 49 y.o. male on day 3 of admission presenting with Wound infection. Subjective No acute event overnight. Patient describes the buttock pain associated with his HS as much improved than when he presented on admission. He did request an extra dose of oxycodone which was given. He expresses a desire to go home and take care of his dog and house. Denies any fevers, chills, headaches, nausea, or vomiting. Denies chest pain, shortness of breath, or palpitations. PO intake is at baseline. Objective Last Recorded Vitals BP 122/70 Pulse 59 Temp 37.1 C (98.8 F) Resp 17 Wt 101 kg (222 lb 3.6 oz) SpO2 95% Intake/Output last 3 Shifts: Intake/Output Summary (Last 24 hours) at 09/16/2024 0941 Last data filed at 09/16/2024 0734 Gross per 24 hour Intake 530 ml Output 1050 ml Net -520 ml Admission Weight Weight: 101 kg (222 lb 3.6 oz) (09/13/24 2141) Daily Weight 09/13/24 : 101 kg (222 lb 3.6 oz) Image Results XR chest 1 view Narrative: Interpreted By: Miah Alves, STUDY: XR CHEST 1 VIEW; 09/13/2024 10:22 pm INDICATION: Signs/Symptoms:New fever. COMPARISON: None. ACCESSION NUMBER(S): [id number] ORDERING CLINICIAN: BALDOMERO POWELL FINDINGS: 2 AP radiographs of the chest. CARDIOMEDIASTINAL SILHOUETTE: The cardiomediastinal silhouette is stable in size and configuration. LUNGS: Right basilar bandlike opacity is felt to be atelectatic in nature. Otherwise, there is no pulmonary edema. No focal consolidation or sizeable pleural effusion is identified. No pneumothorax is seen. ABDOMEN: No remarkable upper abdominal findings. BONES: No acute osseous abnormality. Impression: 1. Right basilar bandlike opacities felt to be atelectatic in nature. Otherwise, no definite focal consolidation or sizable pleural effusion. Signed by: Miah Alves 09/14/2024 8:38 AM Dictation workstation: [id number] Physical Exam Constitutional: Appearance: Normal appearance. HENT: Head: Normocephalic and atraumatic. Cardiovascular: Rate and Rhythm: Normal rate and regular rhythm. Pulses: Normal pulses. Heart sounds: Normal heart sounds. Pulmonary: Effort: Pulmonary effort is normal. Breath sounds: Normal breath sounds. Abdominal: General: Abdomen is flat. Palpations: Abdomen is soft. Musculoskeletal: General: No swelling or tenderness. Skin: General: Skin is warm and dry. Comments: Left posterior thigh and buttock with multiple HS pockmarks, covered by a wound dressing with purulence. Moderate tenderness to palpation and heat. Neurological: General: No focal deficit present. Mental Status: He is alert and oriented to person, place, and time. Relevant Results Results for orders placed or performed during the hospital encounter of 09/13/24 (from the past 24 hours) Renal function panel Result Value Ref Range Glucose 122 (H) 74 - 99 mg/dL Sodium 140 136 - 145 mmol/L Potassium 4.0 3.5 - 5.3 mmol/L Chloride 105 98 - 107 mmol/L Bicarbonate 24 21 - 32 mmol/L Anion Gap 15 10 - 20 mmol/L Urea Nitrogen 18 6 - 23 mg/dL Creatinine 1.77 (H) 0.50 - 1.30 mg/dL eGFR 46 (L) >60 mL/min/1.73m*2 Calcium 8.9 8.6 - 10.6 mg/dL Phosphorus 4.3 2.5 - 4.9 mg/dL Albumin 3.1 (L) 3.4 - 5.0 g/dL Vancomycin Result Value Ref Range Vancomycin 18.0 5.0 - 20.0 ug/mL CBC and Auto Differential Result Value Ref Range WBC 12.3 (H) 4.4 - 11.3 x10*3/uL nRBC 0.0 0.0 - 0.0 /100 WBCs RBC 2.92 (L) 4.50 - 5.90 x10*6/uL Hemoglobin 8.2 (L) 13.5 - 17.5 g/dL Hematocrit 25.8 (L) 41.0 - 52.0 % MCV 88 80 - 100 fL MCH 28.1 26.0 - 34.0 pg MCHC 31.8 (L) 32.0 - 36.0 g/dL RDW 17.1 (H) 11.5 - 14.5 % Platelets 597 (H) 150 - 450 x10*3/uL Neutrophils % 66.4 40.0 - 80.0 % Immature Granulocytes %, Automated 1.1 (H) 0.0 - 0.9 % Lymphocytes % 22.2 13.0 - 44.0 % Monocytes % 5.8 2.0 - 10.0 % Eosinophils % 4.1 0.0 - 6.0 % Basophils % 0.4 0.0 - 2.0 % Neutrophils Absolute 8.18 (H) 1.20 - 7.70 x10*3/uL Immature Granulocytes Absolute, Automated 0.13 0.00 - 0.70 x10*3/uL Lymphocytes Absolute 2.74 1.20 - 4.80 x10*3/uL Monocytes Absolute 0.72 0.10 - 1.00 x10*3/uL Eosinophils Absolute 0.51 0.00 - 0.70 x10*3/uL Basophils Absolute 0.05 0.00 - 0.10 x10*3/uL Renal Function Panel Result Value Ref Range Glucose 91 74 - 99 mg/dL Sodium 140 136 - 145 mmol/L Potassium 4.6 3.5 - 5.3 mmol/L Chloride 104 98 - 107 mmol/L Bicarbonate 26 21 - 32 mmol/L Anion Gap 15 10 - 20 mmol/L Urea Nitrogen 15 6 - 23 mg/dL Creatinine 1.88 (H) 0.50 - 1.30 mg/dL eGFR 43 (L) >60 mL/min/1.73m*2 Calcium 9.3 8.6 - 10.6 mg/dL Phosphorus 4.0 2.5 - 4.9 mg/dL Albumin 3.2 (L) 3.4 - 5.0 g/dL Magnesium Result Value Ref Range Magnesium 2.40 1.60 - 2.40 mg/dL Vancomycin Result Value Ref Range Vancomycin 17.6 5.0 - 20.0 ug/mL No results found. Assessment/Plan Kevan La is a 49 y.o. male presenting with PMH of severe hidradenitis supprativa (on STOP HS-301 trial (povorcitinib), small molecule JAK1 inhibitor) presenting with new wound infection from [facility] ED.Being treated currently with Vancomycin, Zosyn, and clindamycin topical. Patient is symptomatically much improved and will be discharged on a course of PO antibiotics (likely Augmentin and probenecid). 09/16/24 Update - Creatinine is 1.88 today (1.77 yesterday); possibly pre prerenal; possibly due to antibiotics and NSAIDs --> will stop the vancomycin - updated pain regimen: oxy 5mg q6hr prn as the first line. Holding Toradol given elevated Cr. - Skin culture grows no organism, wound culture showing gram positive cocci. Speciation pending - Chantix scheduled for smoking cessation - ACS recs no surgery indicated - Derm following; appreciate recs - Wound dressings daily - Current abx regimen: Zosyn and clindamycin topical - Will discharge on Augmentin and probenecid PO #hidradenitis supprativa ::purulent drainage ::Leukocytosis (12.3) ::History of Jak1 inhibitor treatment ::CXR showed right basilar bandlike opacities felt to be atelectatic in nature Plan: -Last dose of povorcitinib was (09/14), will hold the medication for now per derm -consulted derm, ACS, wound care, appreciate recs -UA unremarkable, bcx pending -on zosyn, clindamycin lotion -Acetaminophen 975 mg Q8H for pain, Ketorolac for breakthrough -pending Fungitell, galactomannan, histoplasma, cryptococcal antigen #PARUL -Creatinine 1.88 09/16; possibly pre prerenal; possibly due to antibiotics and NSAIDs Plan -Stopped vancomycin #Nausea/Vomiting/SOB after exertion #Cough -No history of syncope -Outside hospital with normal troponins, elevated BNP (589) -EKG on admission wnl -Lipid panel neg, A1c 6% Plan - neg flu and covid panel #Allergic Rhinitis -Cetirizine 10 mg #MEGAN -Hold oral iron for now F: prn E: Goal Mg>2, Phos >3, K >4 N: regular diet A: PIV DVT ppx: SCD GI ppx: none Bowel care: none Catheter: none Code: Full Code NOK: Omkar La (brother, ) Andres Gaytan MD Internal Medicine, PGY1 Cosigned by Ankit Nino MD at 09/16/2024 1:07 PM EST Associated attestation - Ankit Nino MD - 09/16/2024 1:07 PM EST I saw and evaluated the patient. I personally obtained the gomez and critical portions of the history and physical exam or was physically present for gomez and critical portions performed by the resident/fellow. I reviewed the resident/fellow's documentation and discussed the patient with the resident/fellow. I agree with the resident/fellow's medical decision making as documented in the note. Kevan La is a 49 y.o. male on day 2 of admission presenting with Wound infection. Subjective No acute complaint overnight. Low BP overnight, asymptomatic. Still coughs and has some SOB, but it's improving per the pt. Complained of pain associated with dressing change. Pt expressed interest in smoking cessation. Objective Last Recorded Vitals BP 112/60 Pulse 71 Temp 36.6 C (97.9 F) Resp 16 Wt 101 kg (222 lb 3.6 oz) SpO2 94% Intake/Output last 3 Shifts: Intake/Output Summary (Last 24 hours) at 09/15/2024 1245 Last data filed at 09/15/2024 1203 Gross per 24 hour Intake 300 ml Output -- Net 300 ml Admission Weight Weight: 101 kg (222 lb 3.6 oz) (09/13/24 2141) Daily Weight 09/13/24 : 101 kg (222 lb 3.6 oz) Image Results XR chest 1 view Narrative: Interpreted By: Miah Alves, STUDY: XR CHEST 1 VIEW; 09/13/2024 10:22 pm INDICATION: Signs/Symptoms:New fever. COMPARISON: None. ACCESSION NUMBER(S): [id number] ORDERING CLINICIAN: BALDOMERO POWELL FINDINGS: 2 AP radiographs of the chest. CARDIOMEDIASTINAL SILHOUETTE: The cardiomediastinal silhouette is stable in size and configuration. LUNGS: Right basilar bandlike opacity is felt to be atelectatic in nature. Otherwise, there is no pulmonary edema. No focal consolidation or sizeable pleural effusion is identified. No pneumothorax is seen. ABDOMEN: No remarkable upper abdominal findings. BONES: No acute osseous abnormality. Impression: 1. Right basilar bandlike opacities felt to be atelectatic in nature. Otherwise, no definite focal consolidation or sizable pleural effusion. Signed by: Miah Alves 09/14/2024 8:38 AM Dictation workstation: [id number] Physical Exam PHYSICAL EXAM: General: awake, alert, conversant, appears stated age HEENT: pupils equal and round, no scleral icterus or conjunctivitis Chest: ctab, normal respiratory effort, not on supplemental oxygen Cardiac: RRR, no murmurs noted Abdomen: soft, ND, NT, no involuntary guarding Skin: left posterior thigh and buttock with multiple HS pockmarks, covered by a wound dressing with purulence. Moderate tenderness to palpation and heat. MSK: no focal joint swelling noted Neuro: AOx4, moving all limbs spontaneously, follows commands Psych: coherent thought process, appropriate mood and affect Relevant Results Results for orders placed or performed during the hospital encounter of 09/13/24 (from the past 24 hours) Influenza A, and B PCR Result Value Ref Range Flu A Result Not Detected Not Detected Flu B Result Not Detected Not Detected Sars-CoV-2 PCR Result Value Ref Range Coronavirus 2019, PCR Not Detected Not Detected CBC and Auto Differential Result Value Ref Range WBC 11.1 4.4 - 11.3 x10*3/uL nRBC 0.0 0.0 - 0.0 /100 WBCs RBC 2.88 (L) 4.50 - 5.90 x10*6/uL Hemoglobin 8.1 (L) 13.5 - 17.5 g/dL Hematocrit 25.2 (L) 41.0 - 52.0 % MCV 88 80 - 100 fL MCH 28.1 26.0 - 34.0 pg MCHC 32.1 32.0 - 36.0 g/dL RDW 16.7 (H) 11.5 - 14.5 % Platelets 526 (H) 150 - 450 x10*3/uL Neutrophils % 66.8 40.0 - 80.0 % Immature Granulocytes %, Automated 1.3 (H) 0.0 - 0.9 % Lymphocytes % 21.4 13.0 - 44.0 % Monocytes % 6.2 2.0 - 10.0 % Eosinophils % 3.9 0.0 - 6.0 % Basophils % 0.4 0.0 - 2.0 % Neutrophils Absolute 7.44 1.20 - 7.70 x10*3/uL Immature Granulocytes Absolute, Automated 0.15 0.00 - 0.70 x10*3/uL Lymphocytes Absolute 2.38 1.20 - 4.80 x10*3/uL Monocytes Absolute 0.69 0.10 - 1.00 x10*3/uL Eosinophils Absolute 0.43 0.00 - 0.70 x10*3/uL Basophils Absolute 0.05 0.00 - 0.10 x10*3/uL Renal Function Panel Result Value Ref Range Glucose 116 (H) 74 - 99 mg/dL Sodium 139 136 - 145 mmol/L Potassium 4.0 3.5 - 5.3 mmol/L Chloride 106 98 - 107 mmol/L Bicarbonate 24 21 - 32 mmol/L Anion Gap 13 10 - 20 mmol/L Urea Nitrogen 17 6 - 23 mg/dL Creatinine 1.70 (H) 0.50 - 1.30 mg/dL eGFR 48 (L) >60 mL/min/1.73m*2 Calcium 9.0 8.6 - 10.6 mg/dL Phosphorus 4.6 2.5 - 4.9 mg/dL Albumin 3.0 (L) 3.4 - 5.0 g/dL Magnesium Result Value Ref Range Magnesium 2.26 1.60 - 2.40 mg/dL XR chest 1 view Result Date: 09/14/2024 Interpreted By: Miah Alves, STUDY: XR CHEST 1 VIEW; 09/13/2024 10:22 pm INDICATION: Signs/Symptoms:New fever. COMPARISON: None. ACCESSION NUMBER(S): [id number] ORDERING CLINICIAN: BALDOMERO POWELL FINDINGS: 2 AP radiographs of the chest. CARDIOMEDIASTINAL SILHOUETTE: The cardiomediastinal silhouette is stable in size and configuration. LUNGS: Right basilar bandlike opacity is felt to be atelectatic in nature. Otherwise, there is no pulmonary edema. No focal consolidation or sizeable pleural effusion is identified. No pneumothorax is seen. ABDOMEN: No remarkable upper abdominal findings. BONES: No acute osseous abnormality. 1. Right basilar bandlike opacities felt to be atelectatic in nature. Otherwise, no definite focal consolidation or sizable pleural effusion. Signed by: Miah Alves 09/14/2024 8:38 AM Dictation workstation: [id number] Assessment/Plan Kevan La is a 49 y.o. male presenting with PMH of severe hidradenitis supprativa (on STOP HS-301 trial (povorcitinib), small molecule JAK1 inhibitor) presenting with new wound infection from [facility] ED. 09/15/24 Update - updated pain regimen: oxy 5mg q6hr prn as the first line. Holding Toradol given elevated Cr. - repeat RFP in the evening, given elevated Cr today 1.7 (1.54 yesterday) - BNP wnl, flu a/b, covid all neg - skin culture grows no organism, wound culture shoed gram positive cocci. - Chantix scheduled for smoking cessation - ACS recs no surgery indicated, pending further derm recs (will f/up tomorrow) #hidradenitis supprativa ::purulent drainage ::Leukocytosis (13.1) ::History of Jak1 inhibitor treatment ::CXR showed right basilar bandlike opacities felt to be atelectatic in nature :: CT didn't show enterocutaneous fistula. Plan: -Last dose of povorcitinib was 10 am today (09/14), will hold the medication for now per derm -consulted derm, ACS, wound care, appreciate recs -UA unremarkable, bcx pending -on vanc, zosyn, clindamycin lotion -Acetaminophen 975 mg Q8H for pain, Ketorolac for breakthrough -pending Fungitell, galactomannan, histoplasma, cryptococcal antigen #Nausea/Vomiting/SOB after exertion #Cough -No history of syncope -Outside hospital with normal troponins, elevated BNP (589) -EKG on admission wnl -Lipid panel neg, A1c 6% Plan - neg flu and covid panel #PARUL, improving -Creatinine 1.2 -> 1.40 -> 1.64>1.54 - likely prerenal. S/p 1L LR #Allergic Rhinitis -Cetirizine 10 mg #MEGAN -Hold oral iron for now F: prn E: Goal Mg>2, Phos >3, K >4 N: regular diet A: PIV DVT ppx: SCD GI ppx: none Bowel care: none Catheter: none Code: Full Code NOK: Omkar La (brother, ) Juanito Boyd MD PGY-1 Neurology Cosigned by Ankit Nino MD at 09/15/2024 1:07 PM EST Associated attestation - Ankit Nino MD - 09/15/2024 1:07 PM EST I saw and evaluated the patient. I personally obtained the gomez and critical portions of the history and physical exam or was physically present for gomez and critical portions performed by the resident/fellow. I reviewed the resident/fellow's documentation and discussed the patient with the resident/fellow. I agree with the resident/fellow's medical decision making as documented in the note. Kevan La is a 49 y.o. male on day 1 of admission presenting with Wound infection. Subjective No acute complaint overnight. Pt still complained of pain but it has been well controlled by Tylenol and Toradol. Was also given 1 L LR overnight. Reported general weakness associated with HS. Also reported that his cough is different from his typical smoker's cough. Objective Last Recorded Vitals BP 107/59 Pulse 72 Temp 36.6 C (97.9 F) Resp 18 Wt 101 kg (222 lb 3.6 oz) SpO2 94% Intake/Output last 3 Shifts: No intake or output data in the 24 hours ending 09/14/24 1343 Admission Weight Weight: 101 kg (222 lb 3.6 oz) (09/13/24 2141) Daily Weight 09/13/24 : 101 kg (222 lb 3.6 oz) Image Results XR chest 1 view Narrative: Interpreted By: Miah Alves, STUDY: XR CHEST 1 VIEW; 09/13/2024 10:22 pm INDICATION: Signs/Symptoms:New fever. COMPARISON: None. ACCESSION NUMBER(S): [id number] ORDERING CLINICIAN: BALDOMERO POWELL FINDINGS: 2 AP radiographs of the chest. CARDIOMEDIASTINAL SILHOUETTE: The cardiomediastinal silhouette is stable in size and configuration. LUNGS: Right basilar bandlike opacity is felt to be atelectatic in nature. Otherwise, there is no pulmonary edema. No focal consolidation or sizeable pleural effusion is identified. No pneumothorax is seen. ABDOMEN: No remarkable upper abdominal findings. BONES: No acute osseous abnormality. Impression: 1. Right basilar bandlike opacities felt to be atelectatic in nature. Otherwise, no definite focal consolidation or sizable pleural effusion. Signed by: Miah Alves 09/14/2024 8:38 AM Dictation workstation: [id number] Physical Exam PHYSICAL EXAM: General: awake, alert, conversant, appears stated age HEENT: pupils equal and round, no scleral icterus or conjunctivitis Chest: ctab, normal respiratory effort, not on supplemental oxygen Cardiac: RRR, no murmurs noted Abdomen: soft, ND, NT, no involuntary guarding Skin: left posterior thigh and buttock with multiple HS pockmarks, covered by a wound dressing with purulence. Moderate tenderness to palpation and heat. MSK: no focal joint swelling noted Neuro: AOx4, moving all limbs spontaneously, follows commands Psych: coherent thought process, appropriate mood and affect Relevant Results Results for orders placed or performed during the hospital encounter of 09/13/24 (from the past 24 hours) Urinalysis with Reflex Culture and Microscopic Result Value Ref Range Color, Urine Light-Yellow Light-Yellow, Yellow, Dark-Yellow Appearance, Urine Clear Clear Specific [place], Urine 1.014 1.005 - 1.035 pH, Urine 7.5 5.0, 5.5, 6.0, 6.5, 7.0, 7.5, 8.0 Protein, Urine 10 (TRACE) NEGATIVE, 10 (TRACE), 20 (TRACE) mg/dL Glucose, Urine Normal Normal mg/dL Blood, Urine 0.06 (1+) (A) NEGATIVE Ketones, Urine NEGATIVE NEGATIVE mg/dL Bilirubin, Urine NEGATIVE NEGATIVE Urobilinogen, Urine Normal Normal mg/dL Nitrite, Urine NEGATIVE NEGATIVE Leukocyte Esterase, Urine NEGATIVE NEGATIVE Extra Urine Rhodes Tube Result Value Ref Range Extra Tube Hold for add-ons. Urinalysis Microscopic Result Value Ref Range WBC, Urine 1-5 1-5, NONE /HPF RBC, Urine 6-10 (A) NONE, 1-2, 3-5 /HPF Mucus, Urine FEW Reference range not established. /LPF Blood Culture Specimen: Peripheral Venipuncture; Blood culture Result Value Ref Range Blood Culture Loaded on Instrument - Culture in progress Blood Culture Specimen: Peripheral Venipuncture; Blood culture Result Value Ref Range Blood Culture Loaded on Instrument - Culture in progress CBC and Auto Differential Result Value Ref Range WBC 13.4 (H) 4.4 - 11.3 x10*3/uL nRBC 0.0 0.0 - 0.0 /100 WBCs RBC 2.83 (L) 4.50 - 5.90 x10*6/uL Hemoglobin 7.8 (L) 13.5 - 17.5 g/dL Hematocrit 24.7 (L) 41.0 - 52.0 % MCV 87 80 - 100 fL MCH 27.6 26.0 - 34.0 pg MCHC 31.6 (L) 32.0 - 36.0 g/dL RDW 16.7 (H) 11.5 - 14.5 % Platelets 523 (H) 150 - 450 x10*3/uL Neutrophils % 68.1 40.0 - 80.0 % Immature Granulocytes %, Automated 0.6 0.0 - 0.9 % Lymphocytes % 17.5 13.0 - 44.0 % Monocytes % 8.8 2.0 - 10.0 % Eosinophils % 4.7 0.0 - 6.0 % Basophils % 0.3 0.0 - 2.0 % Neutrophils Absolute 9.13 (H) 1.20 - 7.70 x10*3/uL Immature Granulocytes Absolute, Automated 0.08 0.00 - 0.70 x10*3/uL Lymphocytes Absolute 2.35 1.20 - 4.80 x10*3/uL Monocytes Absolute 1.18 (H) 0.10 - 1.00 x10*3/uL Eosinophils Absolute 0.63 0.00 - 0.70 x10*3/uL Basophils Absolute 0.04 0.00 - 0.10 x10*3/uL Comprehensive metabolic panel Result Value Ref Range Glucose 137 (H) 74 - 99 mg/dL Sodium 137 136 - 145 mmol/L Potassium 4.3 3.5 - 5.3 mmol/L Chloride 105 98 - 107 mmol/L Bicarbonate 24 21 - 32 mmol/L Anion Gap 12 10 - 20 mmol/L Urea Nitrogen 16 6 - 23 mg/dL Creatinine 1.64 (H) 0.50 - 1.30 mg/dL eGFR 50 (L) >60 mL/min/1.73m*2 Calcium 8.6 8.6 - 10.6 mg/dL Albumin 3.0 (L) 3.4 - 5.0 g/dL Alkaline Phosphatase 55 33 - 120 U/L Total Protein 6.0 (L) 6.4 - 8.2 g/dL AST 31 9 - 39 U/L Bilirubin, Total 0.3 0.0 - 1.2 mg/dL ALT 21 10 - 52 U/L Magnesium Result Value Ref Range Magnesium 2.00 1.60 - 2.40 mg/dL Phosphorus Result Value Ref Range Phosphorus 3.8 2.5 - 4.9 mg/dL Coagulation Screen Result Value Ref Range Protime 13.5 (H) 9.8 - 12.8 seconds INR 1.2 (H) 0.9 - 1.1 aPTT 29 27 - 38 seconds BLOOD GAS VENOUS FULL PANEL Result Value Ref Range POCT pH, Venous 7.59 (H) 7.33 - 7.43 pH POCT pCO2, Venous 22 (L) 41 - 51 mm Hg POCT pO2, Venous 142 (H) 35 - 45 mm Hg POCT SO2, Venous 99 (H) 45 - 75 % POCT Oxy Hemoglobin, Venous 95.8 (H) 45.0 - 75.0 % POCT Hematocrit Calculated, Venous 26.0 (L) 41.0 - 52.0 % POCT Sodium, Venous 135 (L) 136 - 145 mmol/L POCT Potassium, Venous 4.5 3.5 - 5.3 mmol/L POCT Chloride, Venous 108 (H) 98 - 107 mmol/L POCT Ionized Calicum, Venous 1.06 (L) 1.10 - 1.33 mmol/L POCT Glucose, Venous 149 (H) 74 - 99 mg/dL POCT Lactate, Venous 1.7 0.4 - 2.0 mmol/L POCT Base Excess, Venous 0.1 -2.0 - 3.0 mmol/L POCT HCO3 Calculated, Venous 21.1 (L) 22.0 - 26.0 mmol/L POCT Hemoglobin, Venous 8.6 (L) 13.5 - 17.5 g/dL POCT Anion Gap, Venous 10.0 10.0 - 25.0 mmol/L Patient Temperature 37.0 degrees Celsius FiO2 98 % Type and screen Result Value Ref Range ABO TYPE A Rh TYPE POS ANTIBODY SCREEN NEG Lipid Panel Result Value Ref Range Cholesterol 106 0 - 199 mg/dL HDL-Cholesterol 16.4 mg/dL Cholesterol/HDL Ratio 6.5 LDL Calculated 63 <=99 mg/dL VLDL 27 0 - 40 mg/dL Triglycerides 134 0 - 149 mg/dL Non HDL Cholesterol 90 0 - 149 mg/dL Hemoglobin A1c Result Value Ref Range Hemoglobin A1C 6.0 (H) See comment % Estimated Average Glucose 126 Not Established mg/dL Vancomycin Result Value Ref Range Vancomycin 7.3 5.0 - 20.0 ug/mL CBC and Auto Differential Result Value Ref Range WBC 13.1 (H) 4.4 - 11.3 x10*3/uL nRBC 0.0 0.0 - 0.0 /100 WBCs RBC 2.81 (L) 4.50 - 5.90 x10*6/uL Hemoglobin 7.9 (L) 13.5 - 17.5 g/dL Hematocrit 24.4 (L) 41.0 - 52.0 % MCV 87 80 - 100 fL MCH 28.1 26.0 - 34.0 pg MCHC 32.4 32.0 - 36.0 g/dL RDW 16.8 (H) 11.5 - 14.5 % Platelets 528 (H) 150 - 450 x10*3/uL Neutrophils % 70.7 40.0 - 80.0 % Immature Granulocytes %, Automated 0.5 0.0 - 0.9 % Lymphocytes % 14.8 13.0 - 44.0 % Monocytes % 10.0 2.0 - 10.0 % Eosinophils % 3.6 0.0 - 6.0 % Basophils % 0.4 0.0 - 2.0 % Neutrophils Absolute 9.23 (H) 1.20 - 7.70 x10*3/uL Immature Granulocytes Absolute, Automated 0.07 0.00 - 0.70 x10*3/uL Lymphocytes Absolute 1.93 1.20 - 4.80 x10*3/uL Monocytes Absolute 1.30 (H) 0.10 - 1.00 x10*3/uL Eosinophils Absolute 0.47 0.00 - 0.70 x10*3/uL Basophils Absolute 0.05 0.00 - 0.10 x10*3/uL Renal Function Panel Result Value Ref Range Glucose 99 74 - 99 mg/dL Sodium 140 136 - 145 mmol/L Potassium 4.2 3.5 - 5.3 mmol/L Chloride 106 98 - 107 mmol/L Bicarbonate 25 21 - 32 mmol/L Anion Gap 13 10 - 20 mmol/L Urea Nitrogen 14 6 - 23 mg/dL Creatinine 1.54 (H) 0.50 - 1.30 mg/dL eGFR 54 (L) >60 mL/min/1.73m*2 Calcium 8.9 8.6 - 10.6 mg/dL Phosphorus 4.5 2.5 - 4.9 mg/dL Albumin 2.9 (L) 3.4 - 5.0 g/dL Magnesium Result Value Ref Range Magnesium 2.14 1.60 - 2.40 mg/dL AFB Processed Result Value Ref Range Extra Tube Hold for add-ons. XR chest 1 view Result Date: 09/14/2024 Interpreted By: Miah Alves, STUDY: XR CHEST 1 VIEW; 09/13/2024 10:22 pm INDICATION: Signs/Symptoms:New fever. COMPARISON: None. ACCESSION NUMBER(S): [id number] ORDERING CLINICIAN: BALDOMERO POWELL FINDINGS: 2 AP radiographs of the chest. CARDIOMEDIASTINAL SILHOUETTE: The cardiomediastinal silhouette is stable in size and configuration. LUNGS: Right basilar bandlike opacity is felt to be atelectatic in nature. Otherwise, there is no pulmonary edema. No focal consolidation or sizeable pleural effusion is identified. No pneumothorax is seen. ABDOMEN: No remarkable upper abdominal findings. BONES: No acute osseous abnormality. 1. Right basilar bandlike opacities felt to be atelectatic in nature. Otherwise, no definite focal consolidation or sizable pleural effusion. Signed by: Miah Alves 09/14/2024 8:38 AM Dictation workstation: [id number] CT abdomen pelvis w IV contrast Result Date: 09/12/2024 Patient Name: KEVAN LA : 1975 Exam Date/Time: 09/12/2024 21:13 Procedure: CT ABDOMEN PELVIS W CONTRAST Ordering Provider: KAUFFMAN JONATHAN Reason For Exam: L gluteal draining wounds. Eval for abscess or signs of necrotizing infection. CT ABDOMEN AND PELVIS WITH CONTRAST CLINICAL INDICATION: Draining left gluteal wound. TECHNIQUE: Transaxial sequence through the abdomen and pelvis with 3 mm reconstruction with dynamic intravenous infusion of 75 mL of 370 mg% contrast media. No oral contrast was administered. Coronal and sagittal reconstructions included. Dose reduction was employed with automated exposure control. COMPARISON: None FINDINGS: Exam quality: Examination is limited for evaluation of the gastrointestinal tract due to lack of oral contrast Chest base: No focal consolidation or pleural effusion. In Liver: Normal size and contour. No focal lesion. Biliary tree: Normal caliber. Unremarkable gallbladder. Spleen: No splenomegaly. Adrenals: No mass. Pancreas: Normal. Kidneys: Symmetric contrast enhancement without hydronephrosis. No focal lesion. Free fluid: None. Retroperitoneal/mesenteric lymphadenopathy: None. Aorta: Atherosclerotic. Nonaneurysmal. Bowel: The small bowel is normal in course and caliber. No colonic wall thickening or dilation. Sigmoid diverticulosis without diverticulitis. Normal appendix. Abdominal wall: Subcutaneous edema and subcutaneous emphysema of the left buttock extending along the posterior left thigh. No focal fluid collection within the left buttock. Subcutaneous edema and fluid with thickening of the posterior superficial fascia of the thigh and extension of fluid along the posterior left thigh intramuscular fascial planes. No focal drainable fluid collection. Pelvic organs/viscera: Multiple bladder diverticula. Enlarged prostate. Pelvic lymphadenopathy: Prominent left external iliac node and left inguinal nodes, likely reactive. Osseous structures: No acute abnormality. No cortical irregularity of the left femur. Subcutaneous edema and subcutaneous emphysema of the left buttock extending along the posterior left thigh. Extension of fluid into the posterior deep intramuscular fascia of the posterior left thigh. No focal drainable fluid collection. Prominent left external iliac and left inguinal lymph nodes, likely reactive. Additional incidental findings as above. Report Dictated on Electronically Signed By: Raisa Eaton DO Electronically Signed Date/Time: 09/12/2024 9:48 PM EST XR chest 1 view Result Date: 09/12/2024 Patient Name: KEVAN LA : 1975 Exam Date/Time: 09/12/2024 20:17 Procedure: XR CHEST 1 VIEW Ordering Provider: KAUFFMAN JONATHAN Reason For Exam: DYSPNEA CHEST PORTABLE CLINICAL INDICATION: DYSPNEA TECHNIQUE: Portable chest x-ray(s). COMPARISON: None. FINDINGS: Cardiac and mediastinal silhouette within normal limits. Lungs show mild, subsegmental atelectasis or scarring projecting over the right costophrenic angle region. No significant vascular congestion. No focal consolidation or apparent pneumothorax. Bony thorax grossly unremarkable. 1. No acute findings. Report Dictated on Electronically Signed By: Elias Hutson MD Electronically Signed Date/Time: 09/12/2024 8:28 PM EST Assessment/Plan Kevan La is a 49 y.o. male presenting with PMH of severe hidradenitis supprativa (on STOP HS-301 trial (povorcitinib), small molecule JAK1 inhibitor) presenting with new wound infection from [facility] ED. #hidradenitis supprativa ::purulent drainage ::Leukocytosis (13.1) ::History of Jak1 inhibitor treatment ::CXR showed right basilar bandlike opacities felt to be atelectatic in nature :: CT didn't show enterocutaneous fistula. Plan: -Last dose of povorcitinib was 10 am today (09/14), will hold the medication for now per derm -consulted derm, ACS, wound care, appreciate recs -UA unremarkable, bcx pending -on vanc, zosyn, clindamycin lotion -Acetaminophen 975 mg Q8H for pain, Ketorolac for breakthrough -pending Fungitell, galactomannan, histoplasma, cryptococcal antigen #Nausea/Vomiting/SOB after exertion #Cough -No history of syncope -Outside hospital with normal troponins, elevated BNP (589) -EKG on admission wnl -Lipid panel neg, A1c 6% Plan - pending flu and covid panel #PARUL, improving -Creatinine 1.2 -> 1.40 -> 1.64>1.54 - likely prerenal. S/p 1L LR #Allergic Rhinitis -Cetirizine 10 mg #MEGAN -Hold oral iron for now F: prn E: Goal Mg>2, Phos >3, K >4 N: regular diet A: PIV DVT ppx: SCD GI ppx: none Bowel care: none Catheter: none Code: Full Code NOK: Omkar La (brother, ) Juanito Boyd MD PGY-1 Neurology Cosigned by Ankit Nino MD at 09/14/2024 2:13 PM EST Associated attestation - Ankit Nino MD - 09/14/2024 2:13 PM EST I saw and evaluated the patient. I personally obtained the gomez and critical portions of the history and physical exam or was physically present for gomez and critical portions performed by the resident/fellow. I reviewed the resident/fellow's documentation and discussed the patient with the resident/fellow. I agree with the resident/fellow's medical decision making as documented in the note. Vancomycin Dosing by Pharmacy- FOLLOW UP Kevan La is a 49 y.o. year old male who Pharmacy has been consulted for vancomycin dosing for cellulitis, skin and soft tissue. Based on the patient's indication and renal status this patient is being dosed based on a goal AUC of 400-600. Renal function is currently improving. Will utilize AUC dosing based on expectation that the creatinine will continue to improve, patient's age (49 years old), lower risk of altered vancomycin pharmacokinetics Received 2000 mg x1 dose on 09/12 then 1500 mg x 1 dose on 09/13 @ 20:00 from OSH Most recent random level: 7.3 mcg/mL Visit Vitals BP 107/59 Pulse 72 Temp 36.6 C (97.9 F) Resp 18 Lab Results Component Value Date CREATININE 1.54 (H) 09/14/2024 CREATININE 1.64 (H) 09/13/2024 Patient weight is as follows: Vitals: 09/13/24 2141 Weight: 101 kg (222 lb 3.6 oz) Cultures: No results found for the encounter in last 14 days. No intake/output data recorded. I/O during current shift: No intake/output data recorded. Temp (24hrs), Av.7 C (98 F), Min:36.5 C (97.7 F), Max:37 C (98.6 F) Assessment/Plan Below goal AUC. Orders placed for new vancomcyin regimen of 750 mg every 12 hours to begin at 1000 09/14/2024. This dosing regimen is predicted by [employer] to result in the following pharmacokinetic parameters (of note, these estimates do not account for outside hospital administration of vancomycin): AUC 24 ss - 436 mg/L.hr C trough ss - 14.9 mg/L pAUC - 60% pConc - 22% The next level will be obtained on 09/16 with AM labs. May be obtained sooner if clinically indicated. Will continue to monitor renal function daily while on vancomycin and order serum creatinine at least every 48 hours if not already ordered. Follow for continued vancomycin needs, clinical response, and signs/symptoms of toxicity. Karissa Venegas PharmD documented in this encounter [facility] Work Phone: 09-17-2024 Hospital Discharge instructions Lia Prado MD - 09/17/2024 10:48 AM EST Mr. La, You were admitted to the hospital for buttock wounds from hidradenitis suppurativa. You received IV antibiotics while in the hospital and pain medications with improvement. On discharge, we have prescribed augmentin and probenecid for you to take. Please do not take your povorcitinib until you are evaluated by the dermatologists. Also, dermatology has arranged follow up with appointments on 09/20 and 09/30. You also have a virtual follow up with Dr. Nino on 09/24, please do labs before your visit se your labs can be reviewed at your follow up. Please return to the emergency department with any concerns. For the wound: Cleanse the wound with vashe wound cleanser. Moisten a cover sponge with vashe wound cleanser and place on the wound for 2-3 minutes. Lightly pack the left buttock wound with AMD packing strip Cover the surrounding abscess wounds with 2 sheets of Aquacel Ag Cover the wounds with multiple ABD pads Thank you, Your Care team documented in this encounter [facility] Work Phone: 09-16-2024 Miscellaneous Notes Problem: Pain - Adult Goal: Verbalizes/displays adequate comfort level or baseline comfort level Outcome: Progressing Problem: Safety - Adult Goal: Free from fall injury Outcome: Progressing Problem: Fall/Injury Goal: Not fall by end of shift Outcome: Progressing Problem: Skin Goal: Promote/optimize nutrition Outcome: Progressing Flowsheets (Taken 09/16/2024 0831) Promote/optimize nutrition: Consume > 50% meals/supplements Monitor/record intake including meals Offer water/supplements/favorite foods The patient's goals for the shift include The clinical goals for the shift include Patient will rate pain <5 by the end of this shift End of shift note: Patient alert and oriented x 4. Patient complained of pain and was medicated per mar order and before left buttock dressing change. Patient tolerated dressing change with no issues. IV antibiotics administered. PT evaluated pt. Patient to be discharged 09/17/24. VSS, call light within reach, safety maintained. Zuleyma Sanchez RN Problem: Pain - Adult Goal: Verbalizes/displays adequate comfort level or baseline comfort level Outcome: Progressing Problem: Safety - Adult Goal: Free from fall injury Outcome: Progressing Problem: Fall/Injury Goal: Not fall by end of shift Outcome: Progressing Problem: Fall/Injury Goal: Be free from injury by end of the shift Outcome: Progressing The patient's goals for the shift include The clinical goals for the shift include Pt is to be free of falls throughout this shift. Patient alert and oriented x 4. 5mg PO oxycodone administered 45 mins before left buttock dressing change. Patient tolerated dressing change with no issues. PT/OT consulted. VSS, call light within reach, safety maintained. Zuleyma Sanchez RN Kevan aL is a 49 y.o. male presenting with PMH of severe hidradenitis supprativa (disease on left buttock and gluteal fold) on STOP HS-301 trial (povorcitinib, small molecule JAK1 inhibitor) presenting with new wound infection from [facility] ED. He has a long-standing history of HS (since 2015) and has failed doxycycline, minocycline, isotretinoin, clindamycin/rifampin, adalimumab, infliximab, staph decolonization for mupirocin, moxifloxacin/metronidazole, and apremilast. He reports that he since June, he has had spells after exerting himself where he would feel nauseous and throw up at the end of his shift. When he was not working in July he did not have these spells. He had an episode last Monday, morning, and the day after [place]. Drainage from his buttock has been progressively increasing since May and in the last two weeks has been more foul smelling. He has some fatigue, but denies any subjective fevers at home. He talked with his trial team about the increasing output, but they told him to see a general practitioner. He was unable to do this because he lacks insurance. He decided to come into the ED on the 09/12 because he was tired and wanted to find out what was going on. He reports that his pain is worsening, as the two ibuprofen every eight hours is no longer controlling his pain well. He tried some morphine but does not want to be on it as he is unsure if it affects his eligibility for the trial drug. 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 He used to live in [facility]. Denies any sick contacts. He also reports worsening left leg weakness since May (he used to walk with a limp, now has to shuffle). He has both a dry cough that sometimes culminates in post-tussive emesis. On 09/12, he came in with a draining left thigh wound, dry cough and shortness of breath to the [facility] ED. He had some post-tussive emesis. He came in with a fever to 100.4 , tachycardia to 102. He was started on Vanc/Zosyn, got 2 L of NS, and got toradol and morphine for pain. No real culture data history for infections except for rare gram positive cocci in 2015. On 09/13, on arrival at [facility], denies any pain, but has an intermittent dry cough. His wound is draining large amounts of yellow/lieberman fluid. Wound care, derm, ACS were consulted. Pt was also started with vanc/zosyn. CT A/P with contrast showed subcutaneous edema and subcutaneous emphysema of the left buttock extending along the posterior left thigh. Extension of fluid into the posterior deep intramuscular fascia of the posterior left thigh. No focal drainable fluid collection. EKG with sinus tachycardia. On 09/14, the trial drug povorcitinib was on hold. ACS doesn't recommend surgery. Flu/covid panel was ordered, which were negative. Repeat BNP was wnl. On 09/15, Bcx was negative for 1 day. Skin culture didn't show any organism. Wound culture showed gram positive cocci. Cr was elevated, and toradol was held. Chantix is scheduled for smoking cessation as pt expressed interest in quitting smoking. The patient's goals for the shift include The clinical goals for the shift include patien twill remaini safe and free rom falls during shift documented in this encounter [facility] Work Phone: 09-16-2024 Plan of care note Problem: Pain - Adult Goal: Verbalizes/displays adequate comfort level or baseline comfort level Outcome: Progressing Problem: Safety - Adult Goal: Free from fall injury Outcome: Progressing Problem: Fall/Injury Goal: Not fall by end of shift Outcome: Progressing Problem: Skin Goal: Promote/optimize nutrition Outcome: Progressing Flowsheets (Taken 09/16/2024 0831) Promote/optimize nutrition: Consume > 50% meals/supplements Monitor/record intake including meals Offer water/supplements/favorite foods The patient's goals for the shift include The clinical goals for the shift include Patient will rate pain <5 by the end of this shift End of shift note: Patient alert and oriented x 4. Patient complained of pain and was medicated per [facility] order and before left buttock dressing change. Patient tolerated dressing change with no issues. IV antibiotics administered. PT evaluated pt. Patient to be discharged 09/17/24. VSS, call light within reach, safety maintained. Zuleyma Sanchez RN [facility] 09-16-2024 Consult note Associated Order (s): IP CONSULT TO NUTRITION SERVICES Nutrition Initial Assessment: Nutrition Assessment Reason for Assessment: Admission nursing screening Patient is a 49 y.o. male presenting with wound infection of hidradenitis suppurativa. PMHx of severe hidradenitis supprativa (on STOP HS-301 trial (povorcitinib), small molecule JAK1 inhibitor) Nutrition History: Energy Intake: Fair 50-75 % Food and Nutrient History: Pt reports his appetite has been good with no changes. Pt states he typically eats 1-2 meals/day that includes hamburgers or sandwiches for lunch, and pasta or rice-based dishes, hamburgers, or sausage for dinner. Pt states his drinks one Ensure in the morning. Pt declined Ensure, trial Gelatein and Magic Cup. Pt with 1 documented meal of 100% intake. Pt reports since 06/28/2024 he has been experiencing intermittent N/V after work and believes it to be exhaustion related. Pt states his last emesis episode was 09/11. Pt reports currently being constipated. Vitamin/Herbal Supplement Use: Pt brought in his vitamin bag that included vit D3, MVI, and iron Food Allergies/Intolerances: None GI Symptoms: Constipation, Nausea, and Vomiting Oral Problems: None Anthropometrics: Height: 200.7 cm (6' 7.02") Weight: 101 kg (222 lb 3.6 oz) BMI (Calculated): 25.02 IBW/kg (Dietitian Calculated): 100 kg Percent of IBW: 101 % Weight History: Wt Readings from Last 20 Encounters: 09/13/24 101 kg (222 lb 3.6 oz) - bed scale 09/12/24 102 kg (225 lb) 03/16/21 102.1 kg (225 lb) Weight Change %: Weight History / % Weight Change: Pt reports that he does not weigh himself but feels as though he may have lost a couple lbs since his N/V started. Per chart, pt with no recent weight history to assess. Weight appears stable. Nutrition Focused Physical Exam Findings: Subcutaneous Fat Loss: Orbital Fat Pads: Mild-Moderate (slight dark circles and slight hollowing) Buccal Fat Pads: Mild-Moderate (flat cheeks, minimal bounce) Triceps: Well nourished (ample fat tissue) Muscle Wasting: Temporalis: Mild-Moderate (slight depression) Pectoralis (Clavicular Region): Well nourished (clavicle not visible) Deltoid/Trapezius: Well nourished (rounded appearance at arm, shoulder, neck) Interosseous: Well nourished (muscle bulges) Trapezius/Infraspinatus/Supraspin atus (Scapular Region): Well nourished (bones not prominent, muscle taut) Quadriceps: Mild-Moderate (mild depression on inner and outer thigh) Gastrocnemius: Well nourished (well developed bulbous muscle) Edema: Edema: none Edema Location: Per flowsheets Physical Findings: Skin: Positive (hidradentitis suppurativa: left buttock and gluteal fold) Nutrition Significant Labs: CBC Trend: Results from last 7 days Lab Units 09/16/24 0848 09/15/24 0737 09/14/24 0650 09/13/24 2314 WBC AUTO x10*3/uL 12.3* 11.1 13.1* 13.4* RBC AUTO x10*6/uL 2.92* 2.88* 2.81* 2.83* HEMOGLOBIN g/dL 8.2* 8.1* 7.9* 7.8* HEMATOCRIT % 25.8* 25.2* 24.4* 24.7* MCV fL 88 88 87 87 PLATELETS AUTO x10*3/uL 597* 526* 528* 523* , BMP Trend: Results from last 7 days Lab Units 09/16/24 0848 09/15/24 1824 09/15/24 0737 09/14/24 0650 GLUCOSE mg/dL 91 122* 116* 99 CALCIUM mg/dL 9.3 8.9 9.0 8.9 SODIUM mmol/L 140 140 139 140 POTASSIUM mmol/L 4.6 4.0 4.0 4.2 CO2 mmol/L 24 25 CHLORIDE mmol/L 104 105 106 106 BUN mg/dL 15 18 17 14 CREATININE mg/dL 1.88* 1.77* 1.70* 1.54* , BG POCT trend: , Liver Function Trend: Results from last 7 days Lab Units 09/13/24 2314 ALK PHOS U/L 55 AST U/L 31 ALT U/L 21 BILIRUBIN TOTAL mg/dL 0.3 , Renal Lab Trend: Results from last 7 days Lab Units 09/16/24 0848 09/15/24 1824 09/15/24 0737 09/14/24 0650 POTASSIUM mmol/L 4.6 4.0 4.0 4.2 PHOSPHORUS mg/dL 4.0 4.3 4.6 4.5 SODIUM mmol/L 140 140 139 140 MAGNESIUM mg/dL 2.40 -- 2.26 2.14 EGFR mL/min/1.73m*2 43* 46* 48* 54* BUN mg/dL 15 18 17 14 CREATININE mg/dL 1.88* 1.77* 1.70* 1.54* , Vit D: No results found for: VITD25 Nutrition Specific Medications: Scheduled medications acetaminophen, 975 mg, oral, q8h cetirizine, 10 mg, oral, Daily clindamycin, , Topical, BID enoxaparin, 40 mg, subcutaneous, q24h BERNADETTE piperacillin-tazobactam, 3.375 g, intravenous, q6h varenicline, 0.5 mg, oral, Daily Followed by [START ON 09/18/2024] varenicline, 0.5 mg, oral, BID Followed by [START ON 09/22/2024] varenicline, 1 mg, oral, BID Continuous medications PRN medications PRN medications: [Held by provider] ketorolac, nicotine polacrilex, ondansetron ODT OR ondansetron, oxyCODONE I/O: Last BM Date: 09/11/24; Dietary Orders (From admission, onward) Start Ordered 09/13/242250 May Participate in Room Service ( ROOM SERVICE MAY PARTICIPATE) Once Question: . Answer: Yes 09/13/24224909/13/242141 Adult diet Regular Diet effective now Question: Diet type Answer: Regular 09/13/242140 Estimated Needs: Total Energy Estimated Needs (kCal): (4671-7113 kcal) Method for Estimating Needs: MSJ 2017 x 1.3-1.4 Total Protein Estimated Needs (g): (125-150 g) Method for Estimating Needs: 1.25-1.5 g/kg IBW Total Fluid Estimated Needs (mL): (Per med team) Nutrition Diagnosis Malnutrition Diagnosis Patient has Malnutrition Diagnosis: Yes Diagnosis Status: New Malnutrition Diagnosis: Mild malnutrition related to chronic disease or condition As Evidenced by: <75% EER for >/= 1 month, mild fat loss and muscle wasting. Nutrition Diagnosis Patient has Nutrition Diagnosis: Yes Diagnosis Status (1): New Nutrition Diagnosis 1: Increased nutrient needs Related to (1): Increased metabolic demand As Evidenced by (1): hidradentitis suppurativa infection Nutrition Interventions/Recommendations Nutrition Prescription: Individualized Nutrition Prescription Provided for : PO Diet + ONS Nutrition Interventions: Continue regular diet. Consider bowel regimen for constipation. Ordered Gelatein (160 kcal, 20 g pro) once daily and Magic Cup (290 kcal, 9 g pro) once daily Nutrition Education: Discussed increasing protein for wound healing Nutrition Monitoring and Evaluation Food/Nutrient Related History Monitoring Monitoring and Evaluation Plan: Energy intake Energy Intake: Estimated energy intake Criteria: Consume >75% needs Body Composition/Growth/Weight History Monitoring and Evaluation Plan: Weight Weight: Measured weight Criteria: Weekly weights Biochemical Data, Medical Tests and Procedures Monitoring and Evaluation Plan: Electrolyte/renal panel, Glucose/endocrine profile Criteria: WNL Nutrition Focused Physical Findings Monitoring and Evaluation Plan: Skin Criteria: Wound healing Time Spent (min): [address] [facility] 09-16-2024 Consult note Associated Order (s): IP CONSULT TO NUTRITION SERVICES Nutrition Initial Assessment: Nutrition Assessment Reason for Assessment: Admission nursing screening Patient is a 49 y.o. male presenting with wound infection of hidradenitis suppurativa. PMHx of severe hidradenitis supprativa (on STOP HS-301 trial (povorcitinib), small molecule JAK1 inhibitor) Nutrition History: Energy Intake: Fair 50-75 % Food and Nutrient History: Pt reports his appetite has been good with no changes. Pt states he typically eats 1-2 meals/day that includes hamburgers or sandwiches for lunch, and pasta or rice-based dishes, hamburgers, or sausage for dinner. Pt states his drinks one Ensure in the morning. Pt declined Ensure, trial Gelatein and Magic Cup. Pt with 1 documented meal of 100% intake. Pt reports since 06/28/2024 he has been experiencing intermittent N/V after work and believes it to be exhaustion related. Pt states his last emesis episode was 09/11. Pt reports currently being constipated. Vitamin/Herbal Supplement Use: Pt brought in his vitamin bag that included vit D3, MVI, and iron Food Allergies/Intolerances: None GI Symptoms: Constipation, Nausea, and Vomiting Oral Problems: None Anthropometrics: Height: 200.7 cm (6' 7.02") Weight: 101 kg (222 lb 3.6 oz) BMI (Calculated): 25.02 IBW/kg (Dietitian Calculated): 100 kg Percent of IBW: 101 % Weight History: Wt Readings from Last 20 Encounters: 09/13/24 101 kg (222 lb 3.6 oz) - bed scale 09/12/24 102 kg (225 lb) 03/16/21 102.1 kg (225 lb) Weight Change %: Weight History / % Weight Change: Pt reports that he does not weigh himself but feels as though he may have lost a couple lbs since his N/V started. Per chart, pt with no recent weight history to assess. Weight appears stable. Nutrition Focused Physical Exam Findings: Subcutaneous Fat Loss: Orbital Fat Pads: Mild-Moderate (slight dark circles and slight hollowing) Buccal Fat Pads: Mild-Moderate (flat cheeks, minimal bounce) Triceps: Well nourished (ample fat tissue) Muscle Wasting: Temporalis: Mild-Moderate (slight depression) Pectoralis (Clavicular Region): Well nourished (clavicle not visible) Deltoid/Trapezius: Well nourished (rounded appearance at arm, shoulder, neck) Interosseous: Well nourished (muscle bulges) Trapezius/Infraspinatus/Supraspin atus (Scapular Region): Well nourished (bones not prominent, muscle taut) Quadriceps: Mild-Moderate (mild depression on inner and outer thigh) Gastrocnemius: Well nourished (well developed bulbous muscle) Edema: Edema: none Edema Location: Per flowsheets Physical Findings: Skin: Positive (hidradentitis suppurativa: left buttock and gluteal fold) Nutrition Significant Labs: CBC Trend: Results from last 7 days Lab Units 09/16/24 0848 09/15/24 0737 09/14/24 0650 09/13/24 2314 WBC AUTO x10*3/uL 12.3* 11.1 13.1* 13.4* RBC AUTO x10*6/uL 2.92* 2.88* 2.81* 2.83* HEMOGLOBIN g/dL 8.2* 8.1* 7.9* 7.8* HEMATOCRIT % 25.8* 25.2* 24.4* 24.7* MCV fL 88 88 87 87 PLATELETS AUTO x10*3/uL 597* 526* 528* 523* , BMP Trend: Results from last 7 days Lab Units 09/16/24 0848 09/15/24 1824 09/15/24 0737 09/14/24 0650 GLUCOSE mg/dL 91 122* 116* 99 CALCIUM mg/dL 9.3 8.9 9.0 8.9 SODIUM mmol/L 140 140 139 140 POTASSIUM mmol/L 4.6 4.0 4.0 4.2 CO2 mmol/L 26 24 24 25 CHLORIDE mmol/L 104 105 106 106 BUN mg/dL 15 18 17 14 CREATININE mg/dL 1.88* 1.77* 1.70* 1.54* , BG POCT trend: , Liver Function Trend: Results from last 7 days Lab Units 09/13/24 2314 ALK PHOS U/L 55 AST U/L 31 ALT U/L 21 BILIRUBIN TOTAL mg/dL 0.3 , Renal Lab Trend: Results from last 7 days Lab Units 09/16/24 0848 09/15/24 1824 09/15/24 0737 09/14/24 0650 POTASSIUM mmol/L 4.6 4.0 4.0 4.2 PHOSPHORUS mg/dL 4.0 4.3 4.6 4.5 SODIUM mmol/L 140 140 139 140 MAGNESIUM mg/dL 2.40 -- 2.26 2.14 EGFR mL/min/1.73m*2 43* 46* 48* 54* BUN mg/dL 15 18 17 14 CREATININE mg/dL 1.88* 1.77* 1.70* 1.54* , Vit D: No results found for: VITD25 Nutrition Specific Medications: Scheduled medications acetaminophen, 975 mg, oral, q8h cetirizine, 10 mg, oral, Daily clindamycin, , Topical, BID enoxaparin, 40 mg, subcutaneous, q24h BERNADETTE piperacillin-tazobactam, 3.375 g, intravenous, q6h varenicline, 0.5 mg, oral, Daily Followed by [START ON 09/18/2024] varenicline, 0.5 mg, oral, BID Followed by [START ON 09/22/2024] varenicline, 1 mg, oral, BID Continuous medications PRN medications PRN medications: [Held by provider] ketorolac, nicotine polacrilex, ondansetron ODT OR ondansetron, oxyCODONE I/O: Last BM Date: 09/11/24; Dietary Orders (From admission, onward) Start Ordered 09/13/242250 May Participate in Room Service ( ROOM SERVICE MAY PARTICIPATE) Once Question: . Answer: Yes 09/13/24224909/13/242141 Adult diet Regular Diet effective now Question: Diet type Answer: Regular 09/13/242140 Estimated Needs: Total Energy Estimated Needs (kCal): (0529-4687 kcal) Method for Estimating Needs: MSJ 2017 x 1.3-1.4 Total Protein Estimated Needs (g): (125-150 g) Method for Estimating Needs: 1.25-1.5 g/kg IBW Total Fluid Estimated Needs (mL): (Per med team) Nutrition Diagnosis Malnutrition Diagnosis Patient has Malnutrition Diagnosis: Yes Diagnosis Status: New Malnutrition Diagnosis: Mild malnutrition related to chronic disease or condition As Evidenced by: <75% EER for >/= 1 month, mild fat loss and muscle wasting. Nutrition Diagnosis Patient has Nutrition Diagnosis: Yes Diagnosis Status (1): New Nutrition Diagnosis 1: Increased nutrient needs Related to (1): Increased metabolic demand As Evidenced by (1): hidradentitis suppurativa infection Nutrition Interventions/Recommendations Nutrition Prescription: Individualized Nutrition Prescription Provided for : PO Diet + ONS Nutrition Interventions: Continue regular diet. Consider bowel regimen for constipation. Ordered Gelatein (160 kcal, 20 g pro) once daily and Magic Cup (290 kcal, 9 g pro) once daily Nutrition Education: Discussed increasing protein for wound healing Nutrition Monitoring and Evaluation Food/Nutrient Related History Monitoring Monitoring and Evaluation Plan: Energy intake Energy Intake: Estimated energy intake Criteria: Consume >75% needs Body Composition/Growth/Weight History Monitoring and Evaluation Plan: Weight Weight: Measured weight Criteria: Weekly weights Biochemical Data, Medical Tests and Procedures Monitoring and Evaluation Plan: Electrolyte/renal panel, Glucose/endocrine profile Criteria: WNL Nutrition Focused Physical Findings Monitoring and Evaluation Plan: Skin Criteria: Wound healing Time Spent (min): 40 minutes Associated Order(s): WOUND OSTOMY NURSING CONSULT Images from the original note were not included. Wound Care Consult Visit Date: 09/14/2024 Patient Name: Keavn La Date of : 1975 Reason for Consult: Left buttock and gluteal fold hidradenitis supprativa Wound History: 49 y.o. male presenting with PMH of severe hidradenitis supprativa (disease on left buttock and gluteal fold) on STOP HS-301 trial (povorcitinib, small molecule JAK1 inhibitor) presenting with new wound infection Pertinent Labs: Albumin Date Value Ref Range Status 09/14/2024 2.9 (L) 3.4 - 5.0 g/dL Final Wound Assessment: Wound 09/13/24 Other (comment) Buttock Left (Active) Wound Image 09/14/24 1211 Site Assessment Red;Maceration;Bleeding 09/14/24 1211 Shape Round 09/14/24 1211 Wound Length (cm) 2.5 cm 09/14/24 1211 Wound Width (cm) 2 cm 09/14/24 1211 Wound Surface Area (cm^2) 5 cm^2 09/14/24 1211 Wound Depth (cm) 1 cm 09/14/24 1211 Wound Volume (cm^3) 5 cm^3 09/14/24 1211 State of Healing Undermining 09/14/24 1211 Undermining 4 cm 09/14/241 Undermining Clock Position of Wound 6 09/14/24 1211 Margins Well-defined edges 09/14/24 1211 Treatments Cleansed;Packings;Site care 09/14/241 Drainage Description Bourne;Purulent 09/14/241 Drainage Amount Large 09/14/241 Dressing Hydrofiber;Packed;ABD 09/14/241 Dressing Changed New 09/14/241 Dressing Status Dry;Clean 09/14/241210 Wound Team Summary Assessment: The wound care team came to bedside to assess the patient's left buttock and gluteal fold wounds related to HS. During the encounter, a moderate to large amount of bourne purlurent drainage drained from the left buttock and multiple abscess site in the surrounding tissue. The periwound skin was indurated and painful for the patient. The left buttock and gluteal fold wounds were cleansed with vashe wound cleanser and gently pat dry. The left buttock was lighlty packed with AMD packing strip and the surrounding abscess wounds were covered with Aquacel Ag hydrofiber. The left buttock and gluteal fold was then covered with 3 ABD pads + paper tape. Please refer to dermatology team for wound recommendations at this time Wound Team Plan: Recommendations made if you like to consider them listed below: Recommendations: BID Left buttock and surrounding abscess wounds: Cleanse the wound with vashe wound cleanser. Moisten a cover sponge with vashe wound cleanser and place on the wound for 2-3 minutes. Lightly pack the left buttock wound with AMD packing strip ([employer]SI[employer] #[id number] or [id number]) Cover the surrounding abscess wounds with 2 sheets of Aquacel Ag ([employer]#[id number]) Cover the wounds with multiple ABD pads Xiomara Palmer RN [facility]ON 09/14/2024 1:14 PM Associated Order(s): IP CONSULT TO ACUTE CARE SURGERY [facility] ACUTE CARE SURGERY - CONSULT Patient Name: Kevan La Admit Date: [id number] : 1975 AGE: 49 y.o. GENDER: male TODAY'S ASSESSMENT AND PLAN OF CARE: 49-year-old gentleman with longstanding history of HS here with flare. -Will work to obtain CT scan from outside hospital -Based on physical examination as well as report from prior CT, no indication for operative intervention at this time -Would defer inpatient management to dermatology team -Could consider plastic surgery evaluation as an outpatient for discussions of debridement and skin grafting for more definitive treatment of HS -Please call with any questions Seen with Dr. Dequan Petty [facility] [id number] CHIEF COMPLAINT/REASON FOR CONSULT: Patient has an extensive history of hidradenitis. He has been on numerous lines of systemic therapies and is currently enrolled in a clinical trial for treatment. He states that over the last few weeks/months he has been doing relatively okay. But over the last few days he started to feel unwell. He has had worsening pain in his left leg, some more drainage, as well as a cough and lethargy. He presented to an outside hospital for evaluation and then was transferred to [facility] [place] more definitive management. Since admission here he has been started on broad-spectrum antibiotics. He states that overall he is feeling better, closer to his baseline. He denies any nausea vomiting, chest pain, or shortness of breath. Patient has never had any operative intervention on his hidradenitis and would prefer to keep it that way. He denies any other symptoms at this time PAST MEDICAL HISTORY: PMH: Hidradenitis PSH: None SOCIAL HISTORY: Smoking: Social History Tobacco Use Smoking Status Every Day Current packs/day: 1.00 Average packs/day: 1 pack/day for 38.0 years (38.0 ttl pk-yrs) Types: Cigarettes Start date: 1986 Smokeless Tobacco Never Alcohol: Social History Substance and Sexual Activity Alcohol Use None Prior to Admission medications Medication Sig Start Date End Date Taking? Authorizing Provider Study STOP-HS1 [id number] povorcitinib 45mg or 75mg tablet Take 1 tablet by mouth once daily. Preferably in the morning, with a full glass of water. 02/29/24 Kimber Last MD Study STOP-HS1 [id number] povorcitinib 45mg or 75mg tablet Take 1 tablet by mouth once daily. Preferably in the morning, with a full glass of water. 04/04/24 Kimebr Last MD Study STOP-HS1 [id number] povorcitinib 45mg or 75mg tablet Take 1 tablet by mouth once daily. Preferably in the morning, with a full glass of water. 04/12/24 Kimber Last MD Study STOP-HS1 [id number] povorcitinib 45mg or 75mg tablet Take 1 tablet by mouth once daily. Preferably in the morning, with a full glass of water. 05/27/24 Marlon Hughes MD Study STOP-HS1 [id number] povorcitinib 45mg or 75mg tablet Take 1 tablet by mouth once daily. Preferably in the morning, with a full glass of water. 07/08/24 Marlon Hughes MD Study STOP-HS1 [id number] povorcitinib 45mg or 75mg tablet Take 1 tablet by mouth once daily. Preferably in the morning, with a full glass of water. 08/20/24 Marlon Hughes MD Study STOP-HS1 [id number] povorcitinib 45mg, 75mg or placebo tablet Take 1 tablet by mouth once daily. Preferably in the morning, with a full glass of water. 12/11/23 Kimber Last MD Study STOP-HS1 [id number] povorcitinib 45mg, 75mg or placebo tablet Take 1 tablet by mouth once daily. Preferably in the morning, with a full glass of water. 12/29/23 Kimber Last MD Study STOP-HS1 [id number] povorcitinib 45mg, 75mg or placebo tablet Take 1 tablet by mouth once daily. Preferably in the morning, with a full glass of water. 01/16/24 Kimber Last MD Study STOP-HS1 [id number] povorcitinib 45mg, 75mg or placebo tablet Take 1 tablet by mouth once daily. Preferably in the morning, with a full glass of water. 02/09/24 Kimber Last MD ALLERGIES: No Known Allergies REVIEW OF SYSTEMS: Review of Systems as per HPI, otherwise negative PHYSICAL EXAM: Physical Exam BP 107/59 Pulse 72 Temp 36.6 C (97.9 F) Resp 18 Ht 2.007 m (6' 7.02") Wt 101 kg (222 lb 3.6 oz) SpO2 94% BMI 25.02 kg/m No acute distress Nontachycardic Nonlabored respirations on room air Abdomen soft, nondistended Left lateral thigh/gluteal region with extensive evidence of hidradenitis with multiple scars and pits, some drainage of purulence through largest open wound (mid-gluteus) and other wounds located in the posterior mid thigh, no obvious undrained collections on physical examination, no erythema, minimal tenderness to palpation, no evidence of any necrotizing soft tissue infection IMAGING SUMMARY: CT OSH read: Subcutaneous edema and subcutaneous emphysema of the left buttock extending along the posterior left thigh. Extension of fluid into the posterior deep intramuscular fascia of the posterior left thigh. No focal drainable fluid collection. Prominent left external iliac and left inguinal lymph nodes, likely reactive. LABS: Results from last 7 days Lab Units 09/14/24 0650 09/13/24 2314 WBC AUTO x10*3/uL 13.1* 13.4* HEMOGLOBIN g/dL 7.9* 7.8* HEMATOCRIT % 24.4* 24.7* PLATELETS AUTO x10*3/uL 528* 523* NEUTROS PCT AUTO % 70.7 68.1 LYMPHS PCT AUTO % 14.8 17.5 MONOS PCT AUTO % 10.0 8.8 EOS PCT AUTO % 3.6 4.7 Results from last 7 days Lab Units 09/13/24 2314 APTT seconds 29 INR 1.2* Results from last 7 days Lab Units 09/14/24 0650 09/13/24 2314 SODIUM mmol/L 140 137 POTASSIUM mmol/L 4.2 4.3 CHLORIDE mmol/L 106 105 CO2 mmol/L 25 24 BUN mg/dL 14 16 CREATININE mg/dL 1.54* 1.64* CALCIUM mg/dL 8.9 8.6 PROTEIN TOTAL g/dL -- 6.0* BILIRUBIN TOTAL mg/dL -- 0.3 ALK PHOS U/L -- 55 ALT U/L -- 21 AST U/L -- 31 GLUCOSE mg/dL 99 137* Results from last 7 days Lab Units 09/13/24 2314 BILIRUBIN TOTAL mg/dL 0.3 I have reviewed all laboratory and imaging results ordered/pertinent for this encounter. Cosigned by Prasanth Baires MD at 09/14/2024 4:24 PM EST Associated attestation - Prasanth Baires MD - 09/14/2024 4:24 PM EST I saw and evaluated the patient. I personally obtained the gomez and critical portions of the history and physical exam or was physically present for gomez and critical portions performed by the resident/fellow. I reviewed the resident/fellow's documentation and discussed the patient with the resident/fellow. I agree with the resident/fellow's medical decision making as documented in the note. Prasanth Baires MD Attending Acute Care Surgery Associated Order(s): IP CONSULT TO DERMATOLOGY DERMATOLOGY DEPARTMENT CONSULTATION NOTE Name: Kevan La : 1975 Reason for consultation: hidradenitis suppurativa History of Present Illness Kevan La is a 49 y.o. male with a past medical history of hidradenitis suppurativa presented on 09/13/2024 with worsening pain and fatigue in his left leg and was admitted for concern for wound infection. Dermatology was consulted for hidradenitis suppurativa. He reports a history of HS from 2015. Previous therapies include doxycycline, minocycline, isotretinoin, clindamycin/rifampin, Humira, Remicade, staph decolonization for mupirocin, moxifloxacin/metronidazole, and apremilast. He was being treated by [facility]. Pt reports that he has been on multiple therapies and was not able to list all the medications he has previously tried. He did recognize the names of the above medications. 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 In 11/2023, he was started on clinical trial STOP HS-301 with povortcitinib, small molecule JAK1 inhibitor. He notes that he first noted a hole developing in his left buttock ~08/10/2024. It was not any more tender than his baseline pain and he did not note any excess or foul drainage. He noted that the foul odor has worsened over the last two weeks. He notes that he mentioned the lesion to the clinical trial team and was advised to go to his PCP, which he was unable to do. He does note new hardening over the superior half of his left buttock over the last week. For his pain, he notes that at a baseline it is an 8/10. He has bee taking Advil every 8 hours which brings the pain down to a 6/10. He notes no pain at the time when talking to the bid writer. Notes increased fatigue. Denies any fevers, night sweats, or chills at home. He has not gone into any baths, hot tubs, oceans, lakes, or fresh water pools. He cleans the area daily in the shower. He is asking for Hibiclens as he used to use it, but cannot find it anymore in stores. He notes that he is a smoker and smokes about 1 pack a day. He notes that he has been trying to cut back on smoking. 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 Hospital Course - 09/12 he came in with a draining left thigh wound, dry cough, and shortness of breath to [facility] ED - Vitals: T 100.4, HR 102 - Labs: WBC 17.8, Hgb 8.9, platelets 568, CMP Cr 1.48, lactic acid 2 - CT abdomen/pelvis: subcutaneous edema and subcutaneous emphysema of the left buttock extending along the posterior thigh. Extension of fluid into the posterior deep intramuscular fascia of the posterior left thigh. - Vanc/zosyn started - toradol/morphine for pain - 09/13 transferred to [facility] - Labs: WBC 13.4, Hgb 7.8, platelets 523, CMP Cr 1.64 Review of Systems Review of Systems Past Medical History History reviewed. No pertinent past medical history. Past Surgical History has no past surgical history on file. Allergies No Known Allergies Medications Scheduled Meds: acetaminophen, 975 mg, oral, q8h cetirizine, 10 mg, oral, Daily clindamycin, , Topical, BID piperacillin-tazobactam, 3.375 g, intravenous, q6h vancomycin, 750 mg, intravenous, q12h Continuous Infusions: PRN Meds: PRN medications: ketorolac, vancomycin Family History No family history on file. Social History reports that he has been smoking cigarettes. He started smoking about 38 years ago. He has a 38 pack-year smoking history. He has never used smokeless tobacco. He reports that he does not use drugs. No history on file for alcohol use. Objective Vitals: 09/13/24 2141 09/14/24 0017 09/14/24 0454 09/14/24 0838 BP: 92/58 117/54 104/60 107/59 Pulse: 107 88 78 72 Resp: 16 18 Temp: 37 C (98.6 F) 36.6 C (97.9 F) 36.5 C (97.7 F) 36.6 C (97.9 F) SpO2: 94% 93% 96% 94% Weight: 101 kg (222 lb 3.6 oz) Height: 2.007 m (6' 7.02") Exam GEN: no acute distress NEURO: moving all extremities EYES: conjunctiva and eyelids normal. No conjunctival injection or erosions appreciated ENT: - Lips: normal - Teeth/gums: normal - Oropharynx: normal tongue and mucosa NECK: normal and symmetric. CV: no varicosities, warmth or tenderness of extremities. GI: Flat abdomen. Non-tender. No hepatosplenomegaly. LYMPH: no LAD EXTREMITIES: no distal digital clubbing, cyanosis, petechiae SKIN: A full body skin exam including scalp, face, eyes, ears, neck, trunk, bilateral upper & lower extremities, toenails and fingernails were examined with the following findings: On the central left buttock there is a 1 cm ulcer extending to subcutaneous fat with a rim of erythema. Scattered hypopigmented macules surrounded by hyperpigmentation consistent with post-inflammatory hyperpigmentation. On the left lateral buttock there is induration and scattered subcutaneous nodules with central punctum. On the gluteal crease and posterior thigh there are scattered subcutaneous nodules with central punctum. Laboratory and Data Results for orders placed or performed during the hospital encounter of 09/13/24 (from the past 24 hours) Urinalysis with Reflex Culture and Microscopic Result Value Ref Range Color, Urine Light-Yellow Light-Yellow, Yellow, Dark-Yellow Appearance, Urine Clear Clear Specific [place], Urine 1.014 1.005 - 1.035 pH, Urine 7.5 5.0, 5.5, 6.0, 6.5, 7.0, 7.5, 8.0 Protein, Urine 10 (TRACE) NEGATIVE, 10 (TRACE), 20 (TRACE) mg/dL Glucose, Urine Normal Normal mg/dL Blood, Urine 0.06 (1+) (A) NEGATIVE Ketones, Urine NEGATIVE NEGATIVE mg/dL Bilirubin, Urine NEGATIVE NEGATIVE Urobilinogen, Urine Normal Normal mg/dL Nitrite, Urine NEGATIVE NEGATIVE Leukocyte Esterase, Urine NEGATIVE NEGATIVE Extra Urine Rhodes Tube Result Value Ref Range Extra Tube Hold for add-ons. Urinalysis Microscopic Result Value Ref Range WBC, Urine 1-5 1-5, NONE /HPF RBC, Urine 6-10 (A) NONE, 1-2, 3-5 /HPF Mucus, Urine FEW Reference range not established. /LPF Blood Culture Specimen: Peripheral Venipuncture; Blood culture Result Value Ref Range Blood Culture Loaded on Instrument - Culture in progress Blood Culture Specimen: Peripheral Venipuncture; Blood culture Result Value Ref Range Blood Culture Loaded on Instrument - Culture in progress CBC and Auto Differential Result Value Ref Range WBC 13.4 (H) 4.4 - 11.3 x10*3/uL nRBC 0.0 0.0 - 0.0 /100 WBCs RBC 2.83 (L) 4.50 - 5.90 x10*6/uL Hemoglobin 7.8 (L) 13.5 - 17.5 g/dL Hematocrit 24.7 (L) 41.0 - 52.0 % MCV 87 80 - 100 fL MCH 27.6 26.0 - 34.0 pg MCHC 31.6 (L) 32.0 - 36.0 g/dL RDW 16.7 (H) 11.5 - 14.5 % Platelets 523 (H) 150 - 450 x10*3/uL Neutrophils % 68.1 40.0 - 80.0 % Immature Granulocytes %, Automated 0.6 0.0 - 0.9 % Lymphocytes % 17.5 13.0 - 44.0 % Monocytes % 8.8 2.0 - 10.0 % Eosinophils % 4.7 0.0 - 6.0 % Basophils % 0.3 0.0 - 2.0 % Neutrophils Absolute 9.13 (H) 1.20 - 7.70 x10*3/uL Immature Granulocytes Absolute, Automated 0.08 0.00 - 0.70 x10*3/uL Lymphocytes Absolute 2.35 1.20 - 4.80 x10*3/uL Monocytes Absolute 1.18 (H) 0.10 - 1.00 x10*3/uL Eosinophils Absolute 0.63 0.00 - 0.70 x10*3/uL Basophils Absolute 0.04 0.00 - 0.10 x10*3/uL Comprehensive metabolic panel Result Value Ref Range Glucose 137 (H) 74 - 99 mg/dL Sodium 137 136 - 145 mmol/L Potassium 4.3 3.5 - 5.3 mmol/L Chloride 105 98 - 107 mmol/L Bicarbonate 24 21 - 32 mmol/L Anion Gap 12 10 - 20 mmol/L Urea Nitrogen 16 6 - 23 mg/dL Creatinine 1.64 (H) 0.50 - 1.30 mg/dL eGFR 50 (L) >60 mL/min/1.73m*2 Calcium 8.6 8.6 - 10.6 mg/dL Albumin 3.0 (L) 3.4 - 5.0 g/dL Alkaline Phosphatase 55 33 - 120 U/L Total Protein 6.0 (L) 6.4 - 8.2 g/dL AST 31 9 - 39 U/L Bilirubin, Total 0.3 0.0 - 1.2 mg/dL ALT 21 10 - 52 U/L Magnesium Result Value Ref Range Magnesium 2.00 1.60 - 2.40 mg/dL Phosphorus Result Value Ref Range Phosphorus 3.8 2.5 - 4.9 mg/dL Coagulation Screen Result Value Ref Range Protime 13.5 (H) 9.8 - 12.8 seconds INR 1.2 (H) 0.9 - 1.1 aPTT 29 27 - 38 seconds BLOOD GAS VENOUS FULL PANEL Result Value Ref Range POCT pH, Venous 7.59 (H) 7.33 - 7.43 pH POCT pCO2, Venous 22 (L) 41 - 51 mm Hg POCT pO2, Venous 142 (H) 35 - 45 mm Hg POCT SO2, Venous 99 (H) 45 - 75 % POCT Oxy Hemoglobin, Venous 95.8 (H) 45.0 - 75.0 % POCT Hematocrit Calculated, Venous 26.0 (L) 41.0 - 52.0 % POCT Sodium, Venous 135 (L) 136 - 145 mmol/L POCT Potassium, Venous 4.5 3.5 - 5.3 mmol/L POCT Chloride, Venous 108 (H) 98 - 107 mmol/L POCT Ionized Calicum, Venous 1.06 (L) 1.10 - 1.33 mmol/L POCT Glucose, Venous 149 (H) 74 - 99 mg/dL POCT Lactate, Venous 1.7 0.4 - 2.0 mmol/L POCT Base Excess, Venous 0.1 -2.0 - 3.0 mmol/L POCT HCO3 Calculated, Venous 21.1 (L) 22.0 - 26.0 mmol/L POCT Hemoglobin, Venous 8.6 (L) 13.5 - 17.5 g/dL POCT Anion Gap, Venous 10.0 10.0 - 25.0 mmol/L Patient Temperature 37.0 degrees Celsius FiO2 98 % Type and screen Result Value Ref Range ABO TYPE A Rh TYPE POS ANTIBODY SCREEN NEG Lipid Panel Result Value Ref Range Cholesterol 106 0 - 199 mg/dL HDL-Cholesterol 16.4 mg/dL Cholesterol/HDL Ratio 6.5 LDL Calculated 63 <=99 mg/dL VLDL 27 0 - 40 mg/dL Triglycerides 134 0 - 149 mg/dL Non HDL Cholesterol 90 0 - 149 mg/dL Hemoglobin A1c Result Value Ref Range Hemoglobin A1C 6.0 (H) See comment % Estimated Average Glucose 126 Not Established mg/dL Vancomycin Result Value Ref Range Vancomycin 7.3 5.0 - 20.0 ug/mL CBC and Auto Differential Result Value Ref Range WBC 13.1 (H) 4.4 - 11.3 x10*3/uL nRBC 0.0 0.0 - 0.0 /100 WBCs RBC 2.81 (L) 4.50 - 5.90 x10*6/uL Hemoglobin 7.9 (L) 13.5 - 17.5 g/dL Hematocrit 24.4 (L) 41.0 - 52.0 % MCV 87 80 - 100 fL MCH 28.1 26.0 - 34.0 pg MCHC 32.4 32.0 - 36.0 g/dL RDW 16.8 (H) 11.5 - 14.5 % Platelets 528 (H) 150 - 450 x10*3/uL Neutrophils % 70.7 40.0 - 80.0 % Immature Granulocytes %, Automated 0.5 0.0 - 0.9 % Lymphocytes % 14.8 13.0 - 44.0 % Monocytes % 10.0 2.0 - 10.0 % Eosinophils % 3.6 0.0 - 6.0 % Basophils % 0.4 0.0 - 2.0 % Neutrophils Absolute 9.23 (H) 1.20 - 7.70 x10*3/uL Immature Granulocytes Absolute, Automated 0.07 0.00 - 0.70 x10*3/uL Lymphocytes Absolute 1.93 1.20 - 4.80 x10*3/uL Monocytes Absolute 1.30 (H) 0.10 - 1.00 x10*3/uL Eosinophils Absolute 0.47 0.00 - 0.70 x10*3/uL Basophils Absolute 0.05 0.00 - 0.10 x10*3/uL Renal Function Panel Result Value Ref Range Glucose 99 74 - 99 mg/dL Sodium 140 136 - 145 mmol/L Potassium 4.2 3.5 - 5.3 mmol/L Chloride 106 98 - 107 mmol/L Bicarbonate 25 21 - 32 mmol/L Anion Gap 13 10 - 20 mmol/L Urea Nitrogen 14 6 - 23 mg/dL Creatinine 1.54 (H) 0.50 - 1.30 mg/dL eGFR 54 (L) >60 mL/min/1.73m*2 Calcium 8.9 8.6 - 10.6 mg/dL Phosphorus 4.5 2.5 - 4.9 mg/dL Albumin 2.9 (L) 3.4 - 5.0 g/dL Magnesium Result Value Ref Range Magnesium 2.14 1.60 - 2.40 mg/dL AFB Processed Result Value Ref Range Extra Tube Hold for add-ons. Assessment/Plan Kevan La is a 49 y.o. male with a past medical history of hidradenitis suppurativa presented on 09/13/2024 with worsening pain and fatigue in his left leg and was admitted for concern for wound infection. Dermatology was consulted for hidradenitis suppurativa. Differential diagnoses: - hidradenitis suppurativa Impression: Based on clinical history and physical exam, the patient's lesions are consistent with flare of hidradenitis suppurativa. While draining lesions related to hidradenitis by themselves are not infectious, superimposed infection should be ruled out and IV antibiotic therapy can be helpful. He is currently on a clinical trial STOP HS-301. If possible, we would like to keep the patient on the clinical trial medication if possible as he seemed to have the most improvement with it. We will stop the medication at this moment. If he does not have any infection, then it is reasonable to consider a prednisone taper to help bridge him back to restarting the trial drug. If he cannot be restarted on the trial drug, then we can consider treatment with bimekizumab. There is a portion of induration and crepitus in the left lateral buttock that is fairly new according to the patient. Upon manipulation of the area, no pus could be expressed. We strongly suspect that there is a new sinus tract that has developed in this area and it is possible that its tract to outside the skin has closed. If this area does not improve in the next 24-48 hours, the patient may need surgery in order to create a tract for this fluid to drain Recommendations: - stop clinical trial medication for now- he will have follow-up arranged at which point we will decide if he can restart the trial medication - continue broad-spectrum antibiotics and narrowing based on culture sensitivities - If no infection, consider prednisone 60 mg. Outpatient follow-up will determine taper - can consider IV ertapenem for 4-6 weeks. Retrospective review (Becky et al.) have shown that IV ertapenem was associated with improvement in clinical and inflammatory markers. - Ultrasound left buttock/thigh to further characterize pocket collection felt on exam. Can get one today and 48 hours later to help objectively determine if this collection is improving with antibiotics - Follow wound culture, fungal culture, and AFB culture results- all performed today - Agree with plastic surgery/general surgery consult for consideration of de-beni or excision of sinus tract of indurated area. - outpatient follow-up x2- one with the clinical trials team and one with Ronna Carpenter at our [place] location. We will arrange outpatient follow-up The patient was seen and discussed with attending physician Dr. Adhikari. The assessment and plan was communicated to the care team. Thank you for the consultation and for the opportunity to contribute to the care of this patient. Danna Alves MD PGY2, Dermatology Epic chat (preferred) Team pager [phone] Jennifer Pena, Randi beal, P.Y., Mert Eubanks., Mónica Oakley, Latrell Ware, Latrell Mayen, José Miguel, TIsabel., Cheyanne, TYannaR., Emiliano, HKulwant., Yue Roland. and Aure Rodgers., 2023. Efficacy and durability of intravenous ertapenem therapy for recalcitrant hidradenitis suppurativa. ABDIRAHMAN dermatology, 160(3), pp.312-318. Cosigned by Siva Adhikari MD at 09/16/2024 7:08 PM EST Associated attestation - Siva Adhikari MD - 09/16/2024 7:08 PM EST I saw and evaluated the patient. I personally obtained the gomez and critical portions of the history and physical exam or was physically present for gomez and critical portions performed by the resident/fellow. I reviewed the resident/fellow's documentation and discussed the patient with the resident/fellow. I agree with the resident/fellow's medical decision making as documented in the note. Associated Order(s): PHARMACY TO DOSE VANCO Vancomycin Dosing by Pharmacy- INITIAL Kevan La is a 49 y.o. year old male who Pharmacy has been consulted for vancomycin dosing for cellulitis, skin and soft tissue. Based on the patient's indication and renal status this patient will be dosed based on a goal trough/random level of 15-20. Renal function is currently declining. Visit Vitals BP 117/54 Pulse 88 Temp 36.6 C (97.9 F) Lab Results Component Value Date CREATININE 1.64 (H) 09/14/2024 Patient weight is as follows: Vitals: 09/13/24 2141 Weight: 101 kg (222 lb 3.6 oz) Cultures: No results found for the encounter in last 14 days. No intake/output data recorded. I/O during current shift: No intake/output data recorded. Temp (24hrs), Av.8 C (98.3 F), Min:36.6 C (97.9 F), Max:37 C (98.6 F) Assessment/Plan Patient received 2 doses of vanco from OSH before transfer Will dose by level once vancomycin level results Follow-up level will be ordered on 09/14 at AM lab unless clinically indicated sooner. Will continue to monitor renal function daily while on vancomycin and order serum creatinine at least every 48 hours if not already ordered. Follow for continued vancomycin needs, clinical response, and signs/symptoms of toxicity. Trudi K Elah, PharmD documented in this encounter [facility] Work Phone: 09-15-2024 Plan of care note Problem: Pain - Adult Goal: Verbalizes/displays adequate comfort level or baseline comfort level Outcome: Progressing Problem: Safety - Adult Goal: Free from fall injury Outcome: Progressing Problem: Fall/Injury Goal: Not fall by end of shift Outcome: Progressing Problem: Fall/Injury Goal: Be free from injury by end of the shift Outcome: Progressing The patient's goals for the shift include The clinical goals for the shift include Pt is to be free of falls throughout this shift. Patient alert and oriented x 4. 5mg PO oxycodone administered 45 mins before left buttock dressing change. Patient tolerated dressing change with no issues. PT/OT consulted. VSS, call light within reach, safety maintained. Zuleyma Sanchez RN [facility] Work Phone: 09-15-2024 Hospital Note Formatting of t his note might be different from the original. Kevan La is a 49 y.o. male presenting with PMH of severe hidradenitis supprativa (disease on left buttock and gluteal fold) on STOP HS-301 trial (povorcitinib, small molecule JAK1 inhibitor) presenting with new wound infection from [facility] ED. He has a long-standing history of HS (since 2015) and has failed doxycycline, minocycline, isotretinoin, clindamycin/rifampin, adalimumab, infliximab, staph decolonization for mupirocin, moxifloxacin/metronidazole, and apremilast. He reports that he since June, he has had spells after exerting himself where he would feel nauseous and throw up at the end of his shift. When he was not working in July he did not have these spells. He had an episode last Monday, morning, and the day after . Drainage from his buttock has been progressively increasing since May and in the last two weeks has been more foul smelling. He has some fatigue, but denies any subjective fevers at home. He talked with his trial team about the increasing output, but they told him to see a general practitioner. He was unable to do this because he lacks insurance. He decided to come into the ED on the 09/12 because he was tired and wanted to find out what was going on. He reports that his pain is worsening, as the two ibuprofen every eight hours is no longer controlling his pain well. He tried some morphine but does not want to be on it as he is unsure if it affects his eligibility for the trial drug. 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 He used to live in [facility]. Denies any sick contacts. He also reports worsening left leg weakness since May (he used to walk with a limp, now has to shuffle). He has both a dry cough that sometimes culminates in post-tussive emesis. On 09/12, he came in with a draining left thigh wound, dry cough and shortness of breath to the [facility] ED. He had some post-tussive emesis. He came in with a fever to 100.4 , tachycardia to 102. He was started on Vanc/Zosyn, got 2 L of NS, and got toradol and morphine for pain. No real culture data history for infections except for rare gram positive cocci in 2015. On 09/13, on arrival [place] [facility] denies any pain, but has an intermittent dry cough. His wound is draining large amounts of yellow/lieberman fluid. Wound care, derm, ACS were consulted. Pt was also started with vanc/zosyn. CT A/P with contrast showed subcutaneous edema and subcutaneous emphysema of the left buttock extending along the posterior left thigh. Extension of fluid into the posterior deep intramuscular fascia of the posterior left thigh. No focal drainable fluid collection. EKG with sinus tachycardia. On 09/14, the trial drug povorcitinib was on hold. ACS doesn't recommend surgery. Flu/covid panel was ordered, which were negative. Repeat BNP was wnl. On 09/15, Bcx was negative for 1 day. Skin culture didn't show any organism. Wound culture showed gram positive cocci. Cr was elevated, and toradol was held. Chantix is scheduled for smoking cessation as pt expressed interest in quitting smoking. [facility] Work Phone: 09-14-2024 Plan of care note The patient's goals for the shift include The clinical goals for the shift include patien twill remaini safe and free rom falls during shift [facility] 09-14-2024 Consult note Associated Order (s): WOUND OSTOMY NURSING CONSULT Images from the original note were not included. Wound Care Consult Visit Date: 09/14/2024 Patient Name: Kevan La Date of : 1975 Reason for Consult: Left buttock and gluteal fold hidradenitis supprativa Wound History: 49 y.o. male presenting with PMH of severe hidradenitis supprativa (disease on left buttock and gluteal fold) on STOP HS-301 trial (povorcitinib, small molecule JAK1 inhibitor) presenting with new wound infection Pertinent Labs: Albumin Date Value Ref Range Status 09/14/2024 2.9 (L) 3.4 - 5.0 g/dL Final Wound Assessment: Wound 09/13/24 Other (comment) Buttock Left (Active) Wound Image 09/14/24 1211 Site Assessment Red;Maceration;Bleeding 09/14/24 1211 Shape Round 09/14/24 1211 Wound Length (cm) 2.5 cm 09/14/24 1211 Wound Width (cm) 2 cm 09/14/24 1211 Wound Surface Area (cm^2) 5 cm^2 09/14/24 1211 Wound Depth (cm) 1 cm 09/14/24 1211 Wound Volume (cm^3) 5 cm^3 09/14/24 1211 State of Healing Undermining 09/14/24 1211 Undermining 4 cm 09/14/24 1211 Undermining Clock Position of Wound 6 09/14/24 1211 Margins Well-defined edges 09/14/24 1211 Treatments Cleansed;Packings;Site care 09/14/24 1211 Drainage Description Bourne;Purulent 09/14/24 121 Drainage Amount Large 09/14/24 1211 Dressing Hydrofiber;Packed;ABD 09/14/241210 Dressing Changed New 09/14/241210 Dressing Status Dry;Clean 09/14/24 1211 Wound Team Summary Assessment: The wound care team came to bedside to assess the patient's left buttock and gluteal fold wounds related to HS. During the encounter, a moderate to large amount of bourne purlurent drainage drained from the left buttock and multiple abscess site in the surrounding tissue. The periwound skin was indurated and painful for the patient. The left buttock and gluteal fold wounds were cleansed with vashe wound cleanser and gently pat dry. The left buttock was lighlty packed with AMD packing strip and the surrounding abscess wounds were covered with Aquacel Ag hydrofiber. The left buttock and gluteal fold was then covered with 3 ABD pads + paper tape. Please refer to dermatology team for wound recommendations at this time Wound Team Plan: Recommendations made if you like to consider them listed below: Recommendations: BID Left buttock and surrounding abscess wounds: Cleanse the wound with vashe wound cleanser. Moisten a cover sponge with vashe wound cleanser and place on the wound for 2-3 minutes. Lightly pack the left buttock wound with AMD packing strip ([employer]SI[employer] #[id number] or [id number]) Cover the surrounding abscess wounds with 2 sheets of Aquacel Ag ([employer]#[id number]) Cover the wounds with multiple ABD pads Xiomara Palmer RN CWON 09/14/2024 1:[address] [facility] 09-14-2024 Consult note Associated Order (s): IP CONSULT TO ACUTE CARE SURGERY [facility] ACUTE CARE SURGERY - CONSULT Patient Name: Kevan La Admit Date: [id number] : 1975 AGE: 49 y.o. GENDER: male TODAY'S ASSESSMENT AND PLAN OF CARE: 49-year-old gentleman with longstanding history of HS here with flare. -Will work to obtain CT scan from outside hospital -Based on physical examination as well as report from prior CT, no indication for operative intervention at this time -Would defer inpatient management to dermatology team -Could consider plastic surgery evaluation as an outpatient for discussions of debridement and skin grafting for more definitive treatment of HS -Please call with any questions Seen with Dr. Dequan Petty [facility] [id number] CHIEF COMPLAINT/REASON FOR CONSULT: Patient has an extensive history of hidradenitis. He has been on numerous lines of systemic therapies and is currently enrolled in a clinical trial for treatment. He states that over the last few weeks/months he has been doing relatively okay. But over the last few days he started to feel unwell. He has had worsening pain in his left leg, some more drainage, as well as a cough and lethargy. He presented to an outside hospital for evaluation and then was transferred to [facility] for more definitive management. Since admission here he has been started on broad-spectrum antibiotics. He states that overall he is feeling better, closer to his baseline. He denies any nausea vomiting, chest pain, or shortness of breath. Patient has never had any operative intervention on his hidradenitis and would prefer to keep it that way. He denies any other symptoms at this time PAST MEDICAL HISTORY: PMH: Hidradenitis PSH: None SOCIAL HISTORY: Smoking: Social History Tobacco Use Smoking Status Every Day Current packs/day: 1.00 Average packs/day: 1 pack/day for 38.0 years (38.0 ttl pk-yrs) Types: Cigarettes Start date: 1986 Smokeless Tobacco Never Alcohol: Social History Substance and Sexual Activity Alcohol Use None Prior to Admission medications Medication Sig Start Date End Date Taking? Authorizing Provider Study STOP-HS1 [id number] povorcitinib 45mg or 75mg tablet Take 1 tablet by mouth once daily. Preferably in the morning, with a full glass of water. 02/29/24 Kimber Last MD Study STOP-HS1 [id number] povorcitinib 45mg or 75mg tablet Take 1 tablet by mouth once daily. Preferably in the morning, with a full glass of water. 04/04/24 Kimber Last MD Study STOP-HS1 [id number] povorcitinib 45mg or 75mg tablet Take 1 tablet by mouth once daily. Preferably in the morning, with a full glass of water. 04/12/24 Kimber Last MD Study STOP-HS1 [id number] povorcitinib 45mg or 75mg tablet Take 1 tablet by mouth once daily. Preferably in the morning, with a full glass of water. 05/27/24 Marlon Hughes MD Study STOP-HS1 [id number] povorcitinib 45mg or 75mg tablet Take 1 tablet by mouth once daily. Preferably in the morning, with a full glass of water. 07/08/24 Marlon Hughes MD Study STOP-HS1 [id number] povorcitinib 45mg or 75mg tablet Take 1 tablet by mouth once daily. Preferably in the morning, with a full glass of water. 08/20/24 Marlon Hughes MD Study STOP-HS1 [id number] povorcitinib 45mg, 75mg or placebo tablet Take 1 tablet by mouth once daily. Preferably in the morning, with a full glass of water. 12/11/23 Kimber Last MD Study STOP-HS1 [id number] povorcitinib 45mg, 75mg or placebo tablet Take 1 tablet by mouth once daily. Preferably in the morning, with a full glass of water. 12/29/23 Kimber Last MD Study STOP-HS1 [id number] povorcitinib 45mg, 75mg or placebo tablet Take 1 tablet by mouth once daily. Preferably in the morning, with a full glass of water. 01/16/24 Kimber Last MD Study STOP-HS1 [id number] povorcitinib 45mg, 75mg or placebo tablet Take 1 tablet by mouth once daily. Preferably in the morning, with a full glass of water. 02/09/24 Kimber Last MD ALLERGIES: No Known Allergies REVIEW OF SYSTEMS: Review of Systems as per HPI, otherwise negative PHYSICAL EXAM: Physical Exam BP 107/59 Pulse 72 Temp 36.6 C (97.9 F) Resp 18 Ht 2.007 m (6' 7.02") Wt 101 kg (222 lb 3.6 oz) SpO2 94% BMI 25.02 kg/m No acute distress Nontachycardic Nonlabored respirations on room air Abdomen soft, nondistended Left lateral thigh/gluteal region with extensive evidence of hidradenitis with multiple scars and pits, some drainage of purulence through largest open wound (mid-gluteus) and other wounds located in the posterior mid thigh, no obvious undrained collections on physical examination, no erythema, minimal tenderness to palpation, no evidence of any necrotizing soft tissue infection IMAGING SUMMARY: CT OSH read: Subcutaneous edema and subcutaneous emphysema of the left buttock extending along the posterior left thigh. Extension of fluid into the posterior deep intramuscular fascia of the posterior left thigh. No focal drainable fluid collection. Prominent left external iliac and left inguinal lymph nodes, likely reactive. LABS: Results from last 7 days Lab Units 09/14/24 0650 09/13/24 2314 WBC AUTO x10*3/uL 13.1* 13.4* HEMOGLOBIN g/dL 7.9* 7.8* HEMATOCRIT % 24.4* 24.7* PLATELETS AUTO x10*3/uL 528* 523* NEUTROS PCT AUTO % 70.7 68.1 LYMPHS PCT AUTO % 14.8 17.5 MONOS PCT AUTO % 10.0 8.8 EOS PCT AUTO % 3.6 4.7 Results from last 7 days Lab Units 09/13/24 2314 APTT seconds 29 INR 1.2* Results from last 7 days Lab Units 09/14/24 0650 09/13/24 2314 SODIUM mmol/L 140 137 POTASSIUM mmol/L 4.2 4.3 CHLORIDE mmol/L 106 105 CO2 mmol/L 25 24 BUN mg/dL 14 16 CREATININE mg/dL 1.54* 1.64* CALCIUM mg/dL 8.9 8.6 PROTEIN TOTAL g/dL -- 6.0* BILIRUBIN TOTAL mg/dL -- 0.3 ALK PHOS U/L -- 55 ALT U/L -- 21 AST U/L -- 31 GLUCOSE mg/dL 99 137* Results from last 7 days Lab Units 09/13/24 2314 BILIRUBIN TOTAL mg/dL 0.3 I have reviewed all laboratory and imaging results ordered/pertinent for this encounter. Cosigned by Prasanth Baires MD at 09/14/2024 4:24 PM EST Associated attestation - Prasanth Baires MD - 09/14/2024 4:24 PM EST I saw and evaluated the patient. I personally obtained the gomez and critical portions of the history and physical exam or was physically present for gomez and critical portions performed by the resident/fellow. I reviewed the resident/fellow's documentation and discussed the patient with the resident/fellow. I agree with the resident/fellow's medical decision making as documented in the note. Prasanth Baires MD Attending Acute Care Surgery [facility] Work Phone: 09-14-2024 Consult note Associated Order (s): IP CONSULT TO DERMATOLOGY DERMATOLOGY DEPARTMENT CONSULTATION NOTE Name: Kevan La : 1975 Reason for consultation: hidradenitis suppurativa History of Present Illness Kevan La is a 49 y.o. male with a past medical history of hidradenitis suppurativa presented on 09/13/2024 with worsening pain and fatigue in his left leg and was admitted for concern for wound infection. Dermatology was consulted for hidradenitis suppurativa. He reports a history of HS from 2016. Previous therapies include doxycycline, minocycline, isotretinoin, clindamycin/rifampin, Humira, Remicade, staph decolonization for mupirocin, moxifloxacin/metronidazole, and apremilast. He was being treated by [facility]. Pt reports that he has been on multiple therapies and was not able to list all the medications he has previously tried. He did recognize the names of the above medications. 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 In 11/2023, he was started on clinical trial STOP HS-301 with povortcitinib, small molecule JAK1 inhibitor. He notes that he first noted a hole developing in his left buttock ~08/10/2024. It was not any more tender than his baseline pain and he did not note any excess or foul drainage. He noted that the foul odor has worsened over the last two weeks. He notes that he mentioned the lesion to the clinical trial team and was advised to go to his PCP, which he was unable to do. He does note new hardening over the superior half of his left buttock over the last week. For his pain, he notes that at a baseline it is an 8/10. He has bee taking Advil every 8 hours which brings the pain down to a 6/10. He notes no pain at the time when talking to the bid writer. Notes increased fatigue. Denies any fevers, night sweats, or chills at home. He has not gone into any baths, hot tubs, oceans, lakes, or fresh water pools. He cleans the area daily in the shower. He is asking for Hibiclens as he used to use it, but cannot find it anymore in stores. He notes that he is a smoker and smokes about 1 pack a day. He notes that he has been trying to cut back on smoking. 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 Hospital Course - 09/12 he came in with a draining left thigh wound, dry cough, and shortness of breath to [facility] ED - Vitals: T 100.4, HR 102 - Labs: WBC 17.8, Hgb 8.9, platelets 568, CMP Cr 1.48, lactic acid 2 - CT abdomen/pelvis: subcutaneous edema and subcutaneous emphysema of the left buttock extending along the posterior thigh. Extension of fluid into the posterior deep intramuscular fascia of the posterior left thigh. - Vanc/zosyn started - toradol/morphine for pain - 09/13 transferred to [facility] - Labs: WBC 13.4, Hgb 7.8, platelets 523, CMP Cr 1.64 Review of Systems Review of Systems Past Medical History History reviewed. No pertinent past medical history. Past Surgical History has no past surgical history on file. Allergies No Known Allergies Medications Scheduled Meds: acetaminophen, 975 mg, oral, q8h cetirizine, 10 mg, oral, Daily clindamycin, , Topical, BID piperacillin-tazobactam, 3.375 g, intravenous, q6h vancomycin, 750 mg, intravenous, q12h Continuous Infusions: PRN Meds: PRN medications: ketorolac, vancomycin Family History No family history on file. Social History reports that he has been smoking cigarettes. He started smoking about 38 years ago. He has a 38 pack-year smoking history. He has never used smokeless tobacco. He reports that he does not use drugs. No history on file for alcohol use. Objective Vitals: 09/13/24 2141 09/14/24 0017 09/14/24 0454 09/14/24 0838 BP: 92/58 117/54 104/60 107/59 Pulse: 107 88 78 72 Resp: 16 18 Temp: 37 C (98.6 F) 36.6 C (97.9 F) 36.5 C (97.7 F) 36.6 C (97.9 F) SpO2: 94% 93% 96% 94% Weight: 101 kg (222 lb 3.6 oz) Height: 2.007 m (6' 7.02") Exam GEN: no acute distress NEURO: moving all extremities EYES: conjunctiva and eyelids normal. No conjunctival injection or erosions appreciated ENT: - Lips: normal - Teeth/gums: normal - Oropharynx: normal tongue and mucosa NECK: normal and symmetric. CV: no varicosities, warmth or tenderness of extremities. GI: Flat abdomen. Non-tender. No hepatosplenomegaly. LYMPH: no LAD EXTREMITIES: no distal digital clubbing, cyanosis, petechiae SKIN: A full body skin exam including scalp, face, eyes, ears, neck, trunk, bilateral upper & lower extremities, toenails and fingernails were examined with the following findings: On the central left buttock there is a 1 cm ulcer extending to subcutaneous fat with a rim of erythema. Scattered hypopigmented macules surrounded by hyperpigmentation consistent with post-inflammatory hyperpigmentation. On the left lateral buttock there is induration and scattered subcutaneous nodules with central punctum. On the gluteal crease and posterior thigh there are scattered subcutaneous nodules with central punctum. Laboratory and Data Results for orders placed or performed during the hospital encounter of 09/13/24 (from the past 24 hours) Urinalysis with Reflex Culture and Microscopic Result Value Ref Range Color, Urine Light-Yellow Light-Yellow, Yellow, Dark-Yellow Appearance, Urine Clear Clear Specific [place], Urine 1.014 1.005 - 1.035 pH, Urine 7.5 5.0, 5.5, 6.0, 6.5, 7.0, 7.5, 8.0 Protein, Urine 10 (TRACE) NEGATIVE, 10 (TRACE), 20 (TRACE) mg/dL Glucose, Urine Normal Normal mg/dL Blood, Urine 0.06 (1+) (A) NEGATIVE Ketones, Urine NEGATIVE NEGATIVE mg/dL Bilirubin, Urine NEGATIVE NEGATIVE Urobilinogen, Urine Normal Normal mg/dL Nitrite, Urine NEGATIVE NEGATIVE Leukocyte Esterase, Urine NEGATIVE NEGATIVE Extra Urine Rhodes Tube Result Value Ref Range Extra Tube Hold for add-ons. Urinalysis Microscopic Result Value Ref Range WBC, Urine 1-5 1-5, NONE /HPF RBC, Urine 6-10 (A) NONE, 1-2, 3-5 /HPF Mucus, Urine FEW Reference range not established. /LPF Blood Culture Specimen: Peripheral Venipuncture; Blood culture Result Value Ref Range Blood Culture Loaded on Instrument - Culture in progress Blood Culture Specimen: Peripheral Venipuncture; Blood culture Result Value Ref Range Blood Culture Loaded on Instrument - Culture in progress CBC and Auto Differential Result Value Ref Range WBC 13.4 (H) 4.4 - 11.3 x10*3/uL nRBC 0.0 0.0 - 0.0 /100 WBCs RBC 2.83 (L) 4.50 - 5.90 x10*6/uL Hemoglobin 7.8 (L) 13.5 - 17.5 g/dL Hematocrit 24.7 (L) 41.0 - 52.0 % MCV 87 80 - 100 fL MCH 27.6 26.0 - 34.0 pg MCHC 31.6 (L) 32.0 - 36.0 g/dL RDW 16.7 (H) 11.5 - 14.5 % Platelets 523 (H) 150 - 450 x10*3/uL Neutrophils % 68.1 40.0 - 80.0 % Immature Granulocytes %, Automated 0.6 0.0 - 0.9 % Lymphocytes % 17.5 13.0 - 44.0 % Monocytes % 8.8 2.0 - 10.0 % Eosinophils % 4.7 0.0 - 6.0 % Basophils % 0.3 0.0 - 2.0 % Neutrophils Absolute 9.13 (H) 1.20 - 7.70 x10*3/uL Immature Granulocytes Absolute, Automated 0.08 0.00 - 0.70 x10*3/uL Lymphocytes Absolute 2.35 1.20 - 4.80 x10*3/uL Monocytes Absolute 1.18 (H) 0.10 - 1.00 x10*3/uL Eosinophils Absolute 0.63 0.00 - 0.70 x10*3/uL Basophils Absolute 0.04 0.00 - 0.10 x10*3/uL Comprehensive metabolic panel Result Value Ref Range Glucose 137 (H) 74 - 99 mg/dL Sodium 137 136 - 145 mmol/L Potassium 4.3 3.5 - 5.3 mmol/L Chloride 105 98 - 107 mmol/L Bicarbonate 24 21 - 32 mmol/L Anion Gap 12 10 - 20 mmol/L Urea Nitrogen 16 6 - 23 mg/dL Creatinine 1.64 (H) 0.50 - 1.30 mg/dL eGFR 50 (L) >60 mL/min/1.73m*2 Calcium 8.6 8.6 - 10.6 mg/dL Albumin 3.0 (L) 3.4 - 5.0 g/dL Alkaline Phosphatase 55 33 - 120 U/L Total Protein 6.0 (L) 6.4 - 8.2 g/dL AST 31 9 - 39 U/L Bilirubin, Total 0.3 0.0 - 1.2 mg/dL ALT 21 10 - 52 U/L Magnesium Result Value Ref Range Magnesium 2.00 1.60 - 2.40 mg/dL Phosphorus Result Value Ref Range Phosphorus 3.8 2.5 - 4.9 mg/dL Coagulation Screen Result Value Ref Range Protime 13.5 (H) 9.8 - 12.8 seconds INR 1.2 (H) 0.9 - 1.1 aPTT 29 27 - 38 seconds BLOOD GAS VENOUS FULL PANEL Result Value Ref Range POCT pH, Venous 7.59 (H) 7.33 - 7.43 pH POCT pCO2, Venous 22 (L) 41 - 51 mm Hg POCT pO2, Venous 142 (H) 35 - 45 mm Hg POCT SO2, Venous 99 (H) 45 - 75 % POCT Oxy Hemoglobin, Venous 95.8 (H) 45.0 - 75.0 % POCT Hematocrit Calculated, Venous 26.0 (L) 41.0 - 52.0 % POCT Sodium, Venous 135 (L) 136 - 145 mmol/L POCT Potassium, Venous 4.5 3.5 - 5.3 mmol/L POCT Chloride, Venous 108 (H) 98 - 107 mmol/L POCT Ionized Calicum, Venous 1.06 (L) 1.10 - 1.33 mmol/L POCT Glucose, Venous 149 (H) 74 - 99 mg/dL POCT Lactate, Venous 1.7 0.4 - 2.0 mmol/L POCT Base Excess, Venous 0.1 -2.0 - 3.0 mmol/L POCT HCO3 Calculated, Venous 21.1 (L) 22.0 - 26.0 mmol/L POCT Hemoglobin, Venous 8.6 (L) 13.5 - 17.5 g/dL POCT Anion Gap, Venous 10.0 10.0 - 25.0 mmol/L Patient Temperature 37.0 degrees Celsius FiO2 98 % Type and screen Result Value Ref Range ABO TYPE A Rh TYPE POS ANTIBODY SCREEN NEG Lipid Panel Result Value Ref Range Cholesterol 106 0 - 199 mg/dL HDL-Cholesterol 16.4 mg/dL Cholesterol/HDL Ratio 6.5 LDL Calculated 63 <=99 mg/dL VLDL 27 0 - 40 mg/dL Triglycerides 134 0 - 149 mg/dL Non HDL Cholesterol 90 0 - 149 mg/dL Hemoglobin A1c Result Value Ref Range Hemoglobin A1C 6.0 (H) See comment % Estimated Average Glucose 126 Not Established mg/dL Vancomycin Result Value Ref Range Vancomycin 7.3 5.0 - 20.0 ug/mL CBC and Auto Differential Result Value Ref Range WBC 13.1 (H) 4.4 - 11.3 x10*3/uL nRBC 0.0 0.0 - 0.0 /100 WBCs RBC 2.81 (L) 4.50 - 5.90 x10*6/uL Hemoglobin 7.9 (L) 13.5 - 17.5 g/dL Hematocrit 24.4 (L) 41.0 - 52.0 % MCV 87 80 - 100 fL MCH 28.1 26.0 - 34.0 pg MCHC 32.4 32.0 - 36.0 g/dL RDW 16.8 (H) 11.5 - 14.5 % Platelets 528 (H) 150 - 450 x10*3/uL Neutrophils % 70.7 40.0 - 80.0 % Immature Granulocytes %, Automated 0.5 0.0 - 0.9 % Lymphocytes % 14.8 13.0 - 44.0 % Monocytes % 10.0 2.0 - 10.0 % Eosinophils % 3.6 0.0 - 6.0 % Basophils % 0.4 0.0 - 2.0 % Neutrophils Absolute 9.23 (H) 1.20 - 7.70 x10*3/uL Immature Granulocytes Absolute, Automated 0.07 0.00 - 0.70 x10*3/uL Lymphocytes Absolute 1.93 1.20 - 4.80 x10*3/uL Monocytes Absolute 1.30 (H) 0.10 - 1.00 x10*3/uL Eosinophils Absolute 0.47 0.00 - 0.70 x10*3/uL Basophils Absolute 0.05 0.00 - 0.10 x10*3/uL Renal Function Panel Result Value Ref Range Glucose 99 74 - 99 mg/dL Sodium 140 136 - 145 mmol/L Potassium 4.2 3.5 - 5.3 mmol/L Chloride 106 98 - 107 mmol/L Bicarbonate 25 21 - 32 mmol/L Anion Gap 13 10 - 20 mmol/L Urea Nitrogen 14 6 - 23 mg/dL Creatinine 1.54 (H) 0.50 - 1.30 mg/dL eGFR 54 (L) >60 mL/min/1.73m*2 Calcium 8.9 8.6 - 10.6 mg/dL Phosphorus 4.5 2.5 - 4.9 mg/dL Albumin 2.9 (L) 3.4 - 5.0 g/dL Magnesium Result Value Ref Range Magnesium 2.14 1.60 - 2.40 mg/dL AFB Processed Result Value Ref Range Extra Tube Hold for add-ons. Assessment/Plan Kevan La is a 49 y.o. male with a past medical history of hidradenitis suppurativa presented on 09/13/2024 with worsening pain and fatigue in his left leg and was admitted for concern for wound infection. Dermatology was consulted for hidradenitis suppurativa. Differential diagnoses: - hidradenitis suppurativa Impression: Based on clinical history and physical exam, the patient's lesions are consistent with flare of hidradenitis suppurativa. While draining lesions related to hidradenitis by themselves are not infectious, superimposed infection should be ruled out and IV antibiotic therapy can be helpful. He is currently on a clinical trial STOP HS-301. If possible, we would like to keep the patient on the clinical trial medication if possible as he seemed to have the most improvement with it. We will stop the medication at this moment. If he does not have any infection, then it is reasonable to consider a prednisone taper to help bridge him back to restarting the trial drug. If he cannot be restarted on the trial drug, then we can consider treatment with bimekizumab. There is a portion of induration and crepitus in the left lateral buttock that is fairly new according to the patient. Upon manipulation of the area, no pus could be expressed. We strongly suspect that there is a new sinus tract that has developed in this area and it is possible that its tract to outside the skin has closed. If this area does not improve in the next 24-48 hours, the patient may need surgery in order to create a tract for this fluid to drain Recommendations: - stop clinical trial medication for now- he will have follow-up arranged at which point we will decide if he can restart the trial medication - continue broad-spectrum antibiotics and narrowing based on culture sensitivities - If no infection, consider prednisone 60 mg. Outpatient follow-up will determine taper - can consider IV ertapenem for 4-6 weeks. Retrospective review (Becky et al.) have shown that IV ertapenem was associated with improvement in clinical and inflammatory markers. - Ultrasound left buttock/thigh to further characterize pocket collection felt on exam. Can get one today and 48 hours later to help objectively determine if this collection is improving with antibiotics - Follow wound culture, fungal culture, and AFB culture results- all performed today - Agree with plastic surgery/general surgery consult for consideration of de-beni or excision of sinus tract of indurated area. - outpatient follow-up x2- one with the clinical trials team and one with Ronna Carpenter at our [place] location. We will arrange outpatient follow-up The patient was seen and discussed with attending physician Dr. Adhikari. The assessment and plan was communicated to the care team. Thank you for the consultation and for the opportunity to contribute to the care of this patient. Danna Alves MD PGY2, Dermatology Epic chat (preferred) Team pager [phone] Jennifer Pena, Randi beal, PMary., Mert Eubanks., Mónica Oakley, Latrell Ware, Latrell Mayen, Paolo Valdez., Rebekah Edward., Yue Cummings., Yue Roland. and Vishal, Aure., 2023. Efficacy and durability of intravenous ertapenem therapy for recalcitrant hidradenitis suppurativa. ABDIRAHMAN dermatology, 160(3), pp.312-318. Cosigned by Siva Adhikari MD at 09/16/2024 7:08 PM EST Associated attestation - Siva Adhikari MD - 09/16/2024 7:08 PM EST I saw and evaluated the patient. I personally obtained the gomez and critical portions of the history and physical exam or was physically present for gomez and critical portions performed by the resident/fellow. I reviewed the resident/fellow's documentation and discussed the patient with the resident/fellow. I agree with the resident/fellow's medical decision making as documented in the note. [facility] Work Phone: 09-14-2024 Consult note Associated Order (s): PHARMACY TO DOSE VANCO Vancomycin Dosing by Pharmacy- INITIAL Kevan La is a 49 y.o. year old male who Pharmacy has been consulted for vancomycin dosing for cellulitis, skin and soft tissue. Based on the patient's indication and renal status this patient will be dosed based on a goal trough/random level of 15-20. Renal function is currently declining. Visit Vitals BP 117/54 Pulse 88 Temp 36.6 C (97.9 F) Lab Results Component Value Date CREATININE 1.64 (H) 09/14/2024 Patient weight is as follows: Vitals: 09/13/24 2141 Weight: 101 kg (222 lb 3.6 oz) Cultures: No results found for the encounter in last 14 days. No intake/output data recorded. I/O during current shift: No intake/output data recorded. Temp (24hrs), Av.8 C (98.3 F), Min:36.6 C (97.9 F), Max:37 C (98.6 F) Assessment/Plan Patient received 2 doses of vanco from OSH before transfer Will dose by level once vancomycin level results Follow-up level will be ordered on 09/14 at AM lab unless clinically indicated sooner. Will continue to monitor renal function daily while on vancomycin and order serum creatinine at least every 48 hours if not already ordered. Follow for continued vancomycin needs, clinical response, and signs/symptoms of toxicity. Alberto BeckwithD [facility] Work Phone: 09-13-2024 Emergency department Note Pt leaving [facility] ED at this time to go to . Belonging with EMS. [facility] 09-13-2024 Emergency department Note Pt leaving [facility] ED at this time to go to . [facility] with EMS. Report called to RN. RN informed vancomycin was stopped for transport. [facility] ETA 8pm transfer line called - pt [facility] go to [facility]6 bed A. Number for report [phone] [facility] Research Nurse called back. Per the Research Physician, the patient does not have to be transferred to [facility]. All that needs to be done is a "Biologic Medication" needs prescribed, and the patient can be admitted here. The patient is in an outpatient study. If any further questions, we can contact AMAN Hancock @ [phone]. Patient is in a study at [facility]. He has provided a card for his physician and nurse in the study. I contacted the nurse "Karissa" and left a message @ [phone]. Patient is on the waiting list for and as of 0800 today there are still no rooms available at for this patient. Karissa called back and will contact her MD's over her and will get back with me. [facility] ED EMERGENCY DEPARTMENT ENCOUNTER Pt Name: Kevan La Birthdate 1975 Date of evaluation: 09/12/2024 Provider: Xiomara Kauffman MD CHIEF COMPLAINT Chief Complaint Patient presents with Dehydration Fatigue Patient arrived to ED c/o dehydration and fatigue for a few days. Also c/o cough. HISTORY OF PRESENT ILLNESS I wore proper PPE for the entirety of this encounter. Kevan La is a 49 y.o. male who presents to the emergency department with draining L thigh wound (hx of HS), fatigue, dehydration. Symptoms chronic but worse than usual. Notes dry cough and shortness of breath with walking. No chest pain. Has some post-tussive emesis. Denies other significant medical issues besides incontinence. Nursing Notes were reviewed. REVIEW OF SYSTEMS As above PAST MEDICAL HISTORY No past medical history on file. SURGICAL HISTORY No past surgical history on file. CURRENT MEDICATIONS Previous Medications No medications on file ALLERGIES Patient has no known allergies. FAMILY HISTORY No family history on file. SOCIAL HISTORY Social History Socioeconomic History Marital status: Single SCREENINGS PHYSICAL EXAM ED Triage Vitals [09/12/241947] Temp Heart Rate Resp BP 38 C (100.4 F) (!) 111 16 124/81 SpO2 Temp Source Heart Rate Source Patient Position 99 % Temporal Monitor -- BP Location FiO2 (%) -- -- Constitutional: No acute distress HEENT:Head: Atraumatic Eyes: Conjunctivae normal. ENT: Mucous membranes moist. Normal oropharynx Neck: Normal ROM, supple CV: tachycardic RESP: CTAB, good respiratory effort, no increased wob GI: Abdomen soft, non-tender, non-distended, +BS, no guarding or rebound tenderness MSK: Normal bulk and tone, no gross deformity EXTR: Warm and well perfused, no edema SKIN: Multiple wounds on the L buttocks draining pus. Induration. No fluctuance. PSYCH: Appropriate affect, cooperative behavior NEURO: Alert, face symmetric, no slurred speech DIAGNOSTIC RESULTS Interpretation per the Radiologist below, if available at the time of this note: CT abdomen pelvis w contrast Final Result Subcutaneous edema and subcutaneous emphysema of the left buttock extending along the posterior left thigh. Extension of fluid into the posterior deep intramuscular fascia of the posterior left thigh. No focal drainable fluid collection. Prominent left external iliac and left inguinal lymph nodes, likely reactive. Additional incidental findings as above. Report Dictated on Electronically Signed By: Raisa Eaton DO Electronically Signed Date/Time: 09/12/2024 9:48 PM EST XR chest 1 view Final Result 1. No acute findings. Report Dictated on Electronically Signed By: Elias Hutson MD Electronically Signed Date/Time: 09/12/2024 8:28 PM EST LABS: Labs Reviewed BASIC METABOLIC PANEL - Abnormal Result Value SODIUM 140 POTASSIUM 4.9 CHLORIDE 106 CARBON DIOXIDE 22 UREA NITROGEN 18 CREATININE 1.48 (*) GLUCOSE 113 (*) CALCIUM 9.4 ANION GAP 12 eGFR 56.9 (*) CBC WITH AUTO DIFFERENTIAL - Abnormal Auto WBC 17.8 (*) RBC 3.19 (*) Hemoglobin 8.9 (*) Hematocrit 28.1 (*) MCV 88.1 MCH 27.9 MCHC 31.7 RDW 17.0 (*) Platelets 568 (*) MPV 8.6 (*) nRBC 0.0 Neutrophils Relative 77.0 Lymphocytes Relative 12.0 (*) Monocytes Relative 8.1 Eosinophils Relative 2.0 Basophils Relative 0.2 Immature Grans % 0.7 Neutrophils Absolute 13.7 (*) Lymphocytes Absolute 2.1 Monocytes Absolute 1.5 (*) Eosinophils Absolute 0.4 Basophils Absolute 0.0 Immature Grans Absolute 0.1 (*) NT PRO BNP - Abnormal NT PRO BNP 589 (*) HIGH SENSITIVITY TROPONIN, SERIAL BASELINE - Normal Troponin HS, Serial Baseline 4 LACTIC ACID WITH REFLEX - Normal LACTIC ACID 2.0 BLOOD CULTURE BLOOD CULTURE AEROBIC AND ANAEROBIC CULTURE WITH STAIN Narrative: The following orders were created for panel order Aerobic and Anaerobic Culture with Stain. Procedure Abnormality Status --------- ------ Culture, Aerobic Bacteri...[[id number]] In process Anaerobic culture[[id number]] In process Please view results for these tests on the individual orders. CULTURE, AEROBIC BACTERIA WITH GRAM STAIN CULTURE ANAEROBIC HIGH SENSITIVITY TROPONIN, SERIAL, SECOND TEST EMERGENCY DEPARTMENT COURSE and DIFFERENTIAL DIAGNOSIS/MDM: Vitals: Vitals: 09/12/24 1948 09/12/24 2137 09/12/24 2210 BP: 124/81 113/62 BP Location: Left arm Pulse: (!) 111 102 Resp: 16 18 Temp: 38 C (100.4 F) TempSrc: Temporal SpO2: 99% 100% Weight: 102 kg (225 lb) Medications vancomycin in NS (Vancocin) IVPB 2,000 mg (2,000 mg IntraVENous New Bag 09/12/242239) sodium chloride 0.9 % bolus 1,000 mL (0 mL IntraVENous Stopped 09/12/24 2159) piperacillin-tazobactam (Zosyn) 4,500 mg in sodium chloride 0.9 % 100 mL IVPB Mini-Bag Plus (0 mg IntraVENous Stopped 09/12/242231) sodium chloride 0.9 % bolus 1,000 mL (1,000 mL IntraVENous New Bag 09/12/242158) iopamidol (Isovue-370) 76 % injection 75 mL (75 mL IntraVENous Given 09/12/242132) I personally saw the patient and performed a substantive portion of the visit including all aspects of the medical decision making. Patient is tachycardic. Borderline fever. Moderate leukocytosis. Lactic acid normal. Mildly elevated creatinine. But BUN is normal, so PARUL is less likely. CT abdomen pelvis shows Subcutaneous edema and subcutaneous emphysema of the left buttock extending along the posterior left thigh. Extension of fluid into the posterior deep intramuscular fascia of the posterior left thigh. No focal drainable fluid collection. " I consulted general surgery. As below agreed with antibiotics. Recommended admission at given that is where his clinical trial is. As below, accepted by [facility]. I discussed test results and plan with the patient. ED Course as of 09/12/242340 Key Sep 12, 20242011 Draining L thigh wound (hx of HS), fatigue, dehydration. Symptoms chronic but worse than usual. Notes dry cough and shortness of breath with walking. No chest pain. Has some post-tussive emesis. Denies other significant medical issues besides incontinence. [RADHA] 2016 Exam significant for multiple wounds on the L buttocks draining pus. Induration. No fluctuance. [RADHA] 2016 Pt also notes he is on a Derm clinical trial with a treatment for HS (Study STOP-HS1 [id number] povorcitinib 45mg or 75mg tablet) [RADHA] 2206 I discussed with general surgery Dr. Marcus who agreed with antibiotics and admission and will likely need surgery at some point. Recommended admitting where the patient is currently on trial. [RADHA] 2308 About 5 minutes ago I discussed over the phone with Dr. Quintero from [facility] who accepted the admission. [RADHA] ED Course User Index [RADHA] Xiomara Kauffman MD Diagnoses as of 09/12/242340 Buttock wound, left, initial encounter Sepsis, due to unspecified organism, unspecified whether acute organ dysfunction present (HCC) Hidradenitis suppurativa PROCEDURES: Unless otherwise noted below, none Procedures Patients symptoms are consistent with sepsis, severe sepsis, or septic shock (If yes use ".sepsiscoremeasure"): SEP- CORE MEASURE DATA SIRS Criteria Sepsis Criteria Severe Sepsis Criteria Septic Shock Criteria Must meet 2: [] Temperature > 100.4 F (38 C) or < 96.8 F (36 C) [x] HR > 90 [] RR > 20 [x] WBC > 12 or < 4 or 10% bands Must be confirmed or suspected to move forward with diagnosis of sepsis. Must select at least one: [x] Bacterial Infection Confirmed or Suspected. [] Viral Infection Confirmed or Suspected. [] No infection present. Patient does not meet criteria for Sepsis. Must meet 1: [] Lactate > 2 or [] Signs of Organ Dysfunction: - SBP < 90 or MAP < 65 - Altered mental status - Creatinine > 2 or increased from baseline - Urine Output < 0.5 ml/kg/hr - Bilirubin > 2 - INR > 1.5 - Platelets < 100,000 - Acute Respiratory Failure as evidenced by new need for NIPPV or mechanical ventilation [x] No criteria met for Severe Sepsis. Must meet 1: [] Lactate = or > 4 or [] SBP < 90 or MAP < 65 for at least two readings in the first hour after fluid bolus administration [x] No criteria met for Septic Shock. No data found. Recent Labs 09/12/242037 WBC 17.8* LACTATE 2.0 CREATININE 1.48* PLT 568* Sepsis Identified at [id number]. Fluid Resuscitation Rational: at least 30mL/kg based on entered actual body weight at time of triage Infection Source: Skin or Soft Tissue Reassessment Exam: Not applicable. Patient does not have Septic Shock. Xiomara Kauffman MD FINAL IMPRESSION 1. Buttock wound, left, initial encounter 2. Sepsis, due to unspecified organism, unspecified whether acute organ dysfunction present (HCC) 3. Hidradenitis suppurativa DISPOSITION/PLAN Transfer To Another Facility 09/12/2024 11:10:42 PM PATIENT REFERRED TO: No follow-up provider specified. DISCHARGE MEDICATIONS: New Prescriptions No medications on file (Please note: Portions of this note were completed with a voice recognition program. Efforts were made to edit the dictations but occasionally words and phrases are mis-transcribed.) Xiomara Kauffman MD JUAN Emergency Medicine Physician [facility] Xiomara Kauffman MD 09/12/24 2010 documented in this encounter [facility] 09-13-2024 Emergency department Note Report called to RN. RN informed vancomycin was stopped for transport. [facility] 09-13-2024 History and physical note Images from the original note were not included. History Of Present Illness Kevan La is a 49 y.o. male presenting with PMH of severe hidradenitis supprativa (disease on left buttock and gluteal fold) on STOP HS-301 trial (povorcitinib, small molecule JAK1 inhibitor) presenting with new wound infection from [facility] ED. He has a long-standing history of HS (since 2015) and has failed doxycycline, minocycline, isotretinoin, clindamycin/rifampin, adalimumab, infliximab, staph decolonization for mupirocin, moxifloxacin/metronidazole, and apremilast. He reports that he since June, he has had spells after exerting himself where he would feel nauseous and throw up at the end of his shift. When he was not working in July he did not have these spells. He had an episode last Monday, morning, and the day after Janell. Drainage from his buttock has been progressively increasing since May and in the last two weeks has been more foul smelling. He has some fatigue, but denies any subjective fevers at home. He talked with his trial team about the increasing output, but they told him to see a general practitioner. He was unable to do this because he lacks insurance. He decided to come into the ED on the 09/12 because he was tired and wanted to find out what was going on. He reports that his pain is worsening, as the two ibuprofen every eight hours is no longer controlling his pain well. He tried some morphine but does not want to be on it as he is unsure if it affects his eligibility for the trial drug. 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 He used to live in [facility]. Denies any sick contacts. He also reports worsening left leg weakness since May (he used to walk with a limp, now has to shuffle). He has both a dry cough that sometimes culminates in post-tussive emesis. On 09/12, he came in with a draining left thigh wound, dry cough and shortness of breath to the [facility] ED. He had some post-tussive emesis. He came in with a fever to 100.4 , tachycardia to 102. He was started on Vanc/Zosyn, got 2 L of NS, and got toradol and morphine for pain. No real culture data history for infections except for rare gram positive cocci in 2016. Patients on Alejandro inhibitors are at increased risk for VZV reactivation (no cases reported for povorcitinib), URI, UTI and opportunistic fungal infection (Santy PARISH et al 2023, JAAD; Gregory et al 2022, Seminars and Arthritis and Rheumatism). [place] [facility] [place] denies any pain, but has an intermittent dry cough. His wound is draining large amounts of yellow/lieberman fluid. 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 Physical Exam General: Patient is awake, non-toxic appearing, normal body habitus Pulm: Normal WOB at rest, no crackles or rhonchi Cardiac: Regular rate and rhythm, normal S1/S2 Abdomen: Non-tender to palpation, non-distended Extremities: No peripheral edema Skin: Area in left buttock with multiple HS pockmarks, large wound covered by a dressing. Mild tenderness to palpation and heat. Neuro: Patient alert and oriented, cranial nerves grossly intact, normal strength and sensation. Relevant Results Results for orders placed or performed during the hospital encounter of 09/13/24 (from the past 24 hours) Urinalysis with Reflex Culture and Microscopic Result Value Ref Range Color, Urine Light-Yellow Light-Yellow, Yellow, Dark-Yellow Appearance, Urine Clear Clear Specific [place], Urine 1.014 1.005 - 1.035 pH, Urine 7.5 5.0, 5.5, 6.0, 6.5, 7.0, 7.5, 8.0 Protein, Urine 10 (TRACE) NEGATIVE, 10 (TRACE), 20 (TRACE) mg/dL Glucose, Urine Normal Normal mg/dL Blood, Urine 0.06 (1+) (A) NEGATIVE Ketones, Urine NEGATIVE NEGATIVE mg/dL Bilirubin, Urine NEGATIVE NEGATIVE Urobilinogen, Urine Normal Normal mg/dL Nitrite, Urine NEGATIVE NEGATIVE Leukocyte Esterase, Urine NEGATIVE NEGATIVE Urinalysis Microscopic Result Value Ref Range WBC, Urine 1-5 1-5, NONE /HPF RBC, Urine 6-10 (A) NONE, 1-2, 3-5 /HPF Mucus, Urine FEW Reference range not established. /LPF Blood Culture Specimen: Peripheral Venipuncture; Blood culture Result Value Ref Range Blood Culture Loaded on Instrument - Culture in progress Blood Culture Specimen: Peripheral Venipuncture; Blood culture Result Value Ref Range Blood Culture Loaded on Instrument - Culture in progress CBC and Auto Differential Result Value Ref Range WBC 13.4 (H) 4.4 - 11.3 x10*3/uL nRBC 0.0 0.0 - 0.0 /100 WBCs RBC 2.83 (L) 4.50 - 5.90 x10*6/uL Hemoglobin 7.8 (L) 13.5 - 17.5 g/dL Hematocrit 24.7 (L) 41.0 - 52.0 % MCV 87 80 - 100 fL MCH 27.6 26.0 - 34.0 pg MCHC 31.6 (L) 32.0 - 36.0 g/dL RDW 16.7 (H) 11.5 - 14.5 % Platelets 523 (H) 150 - 450 x10*3/uL Neutrophils % 68.1 40.0 - 80.0 % Immature Granulocytes %, Automated 0.6 0.0 - 0.9 % Lymphocytes % 17.5 13.0 - 44.0 % Monocytes % 8.8 2.0 - 10.0 % Eosinophils % 4.7 0.0 - 6.0 % Basophils % 0.3 0.0 - 2.0 % Neutrophils Absolute 9.13 (H) 1.20 - 7.70 x10*3/uL Immature Granulocytes Absolute, Automated 0.08 0.00 - 0.70 x10*3/uL Lymphocytes Absolute 2.35 1.20 - 4.80 x10*3/uL Monocytes Absolute 1.18 (H) 0.10 - 1.00 x10*3/uL Eosinophils Absolute 0.63 0.00 - 0.70 x10*3/uL Basophils Absolute 0.04 0.00 - 0.10 x10*3/uL Coagulation Screen Result Value Ref Range Protime 13.5 (H) 9.8 - 12.8 seconds INR 1.2 (H) 0.9 - 1.1 aPTT 29 27 - 38 seconds BLOOD GAS VENOUS FULL PANEL Result Value Ref Range POCT pH, Venous 7.59 (H) 7.33 - 7.43 pH POCT pCO2, Venous 22 (L) 41 - 51 mm Hg POCT pO2, Venous 142 (H) 35 - 45 mm Hg POCT SO2, Venous 99 (H) 45 - 75 % POCT Oxy Hemoglobin, Venous 95.8 (H) 45.0 - 75.0 % POCT Hematocrit Calculated, Venous 26.0 (L) 41.0 - 52.0 % POCT Sodium, Venous 135 (L) 136 - 145 mmol/L POCT Potassium, Venous 4.5 3.5 - 5.3 mmol/L POCT Chloride, Venous 108 (H) 98 - 107 mmol/L POCT Ionized Calicum, Venous 1.06 (L) 1.10 - 1.33 mmol/L POCT Glucose, Venous 149 (H) 74 - 99 mg/dL POCT Lactate, Venous 1.7 0.4 - 2.0 mmol/L POCT Base Excess, Venous 0.1 -2.0 - 3.0 mmol/L POCT HCO3 Calculated, Venous 21.1 (L) 22.0 - 26.0 mmol/L POCT Hemoglobin, Venous 8.6 (L) 13.5 - 17.5 g/dL POCT Anion Gap, Venous 10.0 10.0 - 25.0 mmol/L Patient Temperature 37.0 degrees Celsius FiO2 98 % Type and screen Result Value Ref Range ABO TYPE A Rh TYPE POS ANTIBODY SCREEN NEG Comprehensive metabolic panel Result Value Ref Range Glucose 137 (H) 74 - 99 mg/dL Sodium 137 136 - 145 mmol/L Potassium 4.3 3.5 - 5.3 mmol/L Chloride 105 98 - 107 mmol/L Bicarbonate 24 21 - 32 mmol/L Anion Gap 12 10 - 20 mmol/L Urea Nitrogen 16 6 - 23 mg/dL Creatinine 1.64 (H) 0.50 - 1.30 mg/dL eGFR 50 (L) >60 mL/min/1.73m*2 Calcium 8.6 8.6 - 10.6 mg/dL Albumin 3.0 (L) 3.4 - 5.0 g/dL Alkaline Phosphatase 55 33 - 120 U/L Total Protein 6.0 (L) 6.4 - 8.2 g/dL AST 31 9 - 39 U/L Bilirubin, Total 0.3 0.0 - 1.2 mg/dL ALT 21 10 - 52 U/L Magnesium Result Value Ref Range Magnesium 2.00 1.60 - 2.40 mg/dL Phosphorus Result Value Ref Range Phosphorus 3.8 2.5 - 4.9 mg/dL Imaging CT A/P with contrast CLINICAL INDICATION: Draining left gluteal wound. Chest base: No focal consolidation or pleural effusion. Liver: Normal size and contour. No focal lesion. Biliary tree: Normal caliber. Unremarkable gallbladder. Spleen: No splenomegaly. Adrenals: No mass. Pancreas: Normal. Kidneys: Symmetric contrast enhancement without hydronephrosis. No focal lesion. Free fluid: None. Retroperitoneal/mesenteric lymphadenopathy: None. Aorta: Atherosclerotic. Nonaneurysmal. Bowel: The small bowel is normal in course and caliber. No colonic wall thickening or dilation. Sigmoid diverticulosis without diverticulitis. Normal appendix. Abdominal wall: Subcutaneous edema and subcutaneous emphysema of the left buttock extending along the posterior left thigh. No focal fluid collection within the left buttock. Subcutaneous edema and fluid with thickening of the posterior superficial fascia of the thigh and extension of fluid along the posterior left thigh intramuscular fascial planes. No focal drainable fluid collection. Pelvic organs/viscera: Multiple bladder diverticula. Enlarged prostate. Pelvic lymphadenopathy: Prominent left external iliac node and left inguinal nodes, likely reactive. Osseous structures: No acute abnormality. No cortical irregularity of the left femur. IMPRESSION: Subcutaneous edema and subcutaneous emphysema of the left buttock extending along the posterior left thigh. Extension of fluid into the posterior deep intramuscular fascia of the posterior left thigh. No focal drainable fluid collection. Prominent left external iliac and left inguinal lymph nodes, likely reactive. CXR - nada EKG with sinus tachycardia Assessment/Plan Assessment & Plan Hidradenitis suppurativa Wound infection Kevan La is a 49 y.o. male presenting with PMH of severe hidradenitis supprativa (disease on left buttock and gluteal fold) on STOP HS-301 trial (povorcitinib, small molecule JAK1 inhibitor) presenting with new wound infection from [facility] ED. #New wound infection with purulent drainage #Fever, white count #History of Jak1 inhibitor treatment -Last dose:: -Most likely the usual suspects (staph/strep and potentially gram negatives for chronic wounds) so coverage with Vanc/Zosyn is probably appropriate given acuity of presentation -No previous wound cultures to guide treatment -Will also send some fungal workup because of history of Alejandro treatment, though I think this less likely -Doesn't present like VZV -White count responsive to antibiotics Plan -Wound cultures -Blood cultures -UA reflex, chest x-ray -Vancomycin -Zosyn 3.375 Q6H -Fungitell, galactomannan, histoplasma, cryptococcal antigen -Consult derm clinic trial team in AM for any other recs for trial drug -Acetaminophen 975 mg Q8H for pain, Ketorolac for breakthrough -Can consider MRI as symptoms worrying for enterocutaneous fistula. However, CT didn't show anything. #Nausea/Vomiting after exertion -No history of syncope -Pain related vs cardiac -Outside hospital with normal troponins, elevated BNP (but not high enough for true heart failure) -EKG in February with NSR, no previous TTEs Plan - Admission EKG - Lipid panel, A1c - Continue to monitor #PARUL -Creatinine 1.2 -> 1.40 -> 1.64 -Probably secondary to fluid output from wound. Aggressively replete fluid with boluses #Hidradenitis supprativa -Hold povorcitinib for now due to active infection -Topical clindamycin #Allergic Rhinitis -Cetirizine 10 mg #MEGAN -Hold oral iron for now Diet: Regular DVT: none needed Code: Full Code NOK: Omkar La (brother, ) Carlos Lewis MD Cosigned by Ankit Nino MD at 09/14/2024 6:09 AM EST Associated attestation - Ankit Nino MD - 09/14/2024 6:09 AM EST I saw and evaluated the patient. I personally obtained the gomez and critical portions of the history and physical exam or was physically present for gomez and critical portions performed by the resident/fellow. I reviewed the resident/fellow's documentation and discussed the patient with the resident/fellow. I agree with the resident/fellow's medical decision making as documented in the note. [facility] Work Phone: 09-13-2024 History and physical note Images from the original note were not included. History Of Present Illness Kevan La is a 49 y.o. male presenting with PMH of severe hidradenitis supprativa (disease on left buttock and gluteal fold) on STOP HS-301 trial (povorcitinib, small molecule JAK1 inhibitor) presenting with new wound infection from [facility] ED. He has a long-standing history of HS (since 2015) and has failed doxycycline, minocycline, isotretinoin, clindamycin/rifampin, adalimumab, infliximab, staph decolonization for mupirocin, moxifloxacin/metronidazole, and apremilast. He reports that he since June, he has had spells after exerting himself where he would feel nauseous and throw up at the end of his shift. When he was not working in July he did not have these spells. He had an episode last Monday, morning, and the day after . Drainage from his buttock has been progressively increasing since May and in the last two weeks has been more foul smelling. He has some fatigue, but denies any subjective fevers at home. He talked with his trial team about the increasing output, but they told him to see a general practitioner. He was unable to do this because he lacks insurance. He decided to come into the ED on the 09/12 because he was tired and wanted to find out what was going on. He reports that his pain is worsening, as the two ibuprofen every eight hours is no longer controlling his pain well. He tried some morphine but does not want to be on it as he is unsure if it affects his eligibility for the trial drug. 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 He used to live in [facility]. Denies any sick contacts. He also reports worsening left leg weakness since May (he used to walk with a limp, now has to shuffle). He has both a dry cough that sometimes culminates in post-tussive emesis. On 09/12, he came in with a draining left thigh wound, dry cough and shortness of breath to the [facility] ED. He had some post-tussive emesis. He came in with a fever to 100.4 , tachycardia to 102. He was started on Vanc/Zosyn, got 2 L of NS, and got toradol and morphine for pain. No real culture data history for infections except for rare gram positive cocci in 2016. Patients on Alejandro inhibitors are at increased risk for VZV reactivation (no cases reported for povorcitinib), URI, UTI and opportunistic fungal infection (Santy PARISH et al 2023, JAAD; Gregory et al 2022, Seminars and Arthritis and Rheumatism). [place] [facility] [place] denies any pain, but has an intermittent dry cough. His wound is draining large amounts of yellow/lieberman fluid. 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 Physical Exam General: Patient is awake, non-toxic appearing, normal body habitus Pulm: Normal WOB at rest, no crackles or rhonchi Cardiac: Regular rate and rhythm, normal S1/S2 Abdomen: Non-tender to palpation, non-distended Extremities: No peripheral edema Skin: Area in left buttock with multiple HS pockmarks, large wound covered by a dressing. Mild tenderness to palpation and heat. Neuro: Patient alert and oriented, cranial nerves grossly intact, normal strength and sensation. Relevant Results Results for orders placed or performed during the hospital encounter of 09/13/24 (from the past 24 hours) Urinalysis with Reflex Culture and Microscopic Result Value Ref Range Color, Urine Light-Yellow Light-Yellow, Yellow, Dark-Yellow Appearance, Urine Clear Clear Specific [place], Urine 1.014 1.005 - 1.035 pH, Urine 7.5 5.0, 5.5, 6.0, 6.5, 7.0, 7.5, 8.0 Protein, Urine 10 (TRACE) NEGATIVE, 10 (TRACE), 20 (TRACE) mg/dL Glucose, Urine Normal Normal mg/dL Blood, Urine 0.06 (1+) (A) NEGATIVE Ketones, Urine NEGATIVE NEGATIVE mg/dL Bilirubin, Urine NEGATIVE NEGATIVE Urobilinogen, Urine Normal Normal mg/dL Nitrite, Urine NEGATIVE NEGATIVE Leukocyte Esterase, Urine NEGATIVE NEGATIVE Urinalysis Microscopic Result Value Ref Range WBC, Urine 1-5 1-5, NONE /HPF RBC, Urine 6-10 (A) NONE, 1-2, 3-5 /HPF Mucus, Urine FEW Reference range not established. /LPF Blood Culture Specimen: Peripheral Venipuncture; Blood culture Result Value Ref Range Blood Culture Loaded on Instrument - Culture in progress Blood Culture Specimen: Peripheral Venipuncture; Blood culture Result Value Ref Range Blood Culture Loaded on Instrument - Culture in progress CBC and Auto Differential Result Value Ref Range WBC 13.4 (H) 4.4 - 11.3 x10*3/uL nRBC 0.0 0.0 - 0.0 /100 WBCs RBC 2.83 (L) 4.50 - 5.90 x10*6/uL Hemoglobin 7.8 (L) 13.5 - 17.5 g/dL Hematocrit 24.7 (L) 41.0 - 52.0 % MCV 87 80 - 100 fL MCH 27.6 26.0 - 34.0 pg MCHC 31.6 (L) 32.0 - 36.0 g/dL RDW 16.7 (H) 11.5 - 14.5 % Platelets 523 (H) 150 - 450 x10*3/uL Neutrophils % 68.1 40.0 - 80.0 % Immature Granulocytes %, Automated 0.6 0.0 - 0.9 % Lymphocytes % 17.5 13.0 - 44.0 % Monocytes % 8.8 2.0 - 10.0 % Eosinophils % 4.7 0.0 - 6.0 % Basophils % 0.3 0.0 - 2.0 % Neutrophils Absolute 9.13 (H) 1.20 - 7.70 x10*3/uL Immature Granulocytes Absolute, Automated 0.08 0.00 - 0.70 x10*3/uL Lymphocytes Absolute 2.35 1.20 - 4.80 x10*3/uL Monocytes Absolute 1.18 (H) 0.10 - 1.00 x10*3/uL Eosinophils Absolute 0.63 0.00 - 0.70 x10*3/uL Basophils Absolute 0.04 0.00 - 0.10 x10*3/uL Coagulation Screen Result Value Ref Range Protime 13.5 (H) 9.8 - 12.8 seconds INR 1.2 (H) 0.9 - 1.1 aPTT 29 27 - 38 seconds BLOOD GAS VENOUS FULL PANEL Result Value Ref Range POCT pH, Venous 7.59 (H) 7.33 - 7.43 pH POCT pCO2, Venous 22 (L) 41 - 51 mm Hg POCT pO2, Venous 142 (H) 35 - 45 mm Hg POCT SO2, Venous 99 (H) 45 - 75 % POCT Oxy Hemoglobin, Venous 95.8 (H) 45.0 - 75.0 % POCT Hematocrit Calculated, Venous 26.0 (L) 41.0 - 52.0 % POCT Sodium, Venous 135 (L) 136 - 145 mmol/L POCT Potassium, Venous 4.5 3.5 - 5.3 mmol/L POCT Chloride, Venous 108 (H) 98 - 107 mmol/L POCT Ionized Calicum, Venous 1.06 (L) 1.10 - 1.33 mmol/L POCT Glucose, Venous 149 (H) 74 - 99 mg/dL POCT Lactate, Venous 1.7 0.4 - 2.0 mmol/L POCT Base Excess, Venous 0.1 -2.0 - 3.0 mmol/L POCT HCO3 Calculated, Venous 21.1 (L) 22.0 - 26.0 mmol/L POCT Hemoglobin, Venous 8.6 (L) 13.5 - 17.5 g/dL POCT Anion Gap, Venous 10.0 10.0 - 25.0 mmol/L Patient Temperature 37.0 degrees Celsius FiO2 98 % Type and screen Result Value Ref Range ABO TYPE A Rh TYPE POS ANTIBODY SCREEN NEG Comprehensive metabolic panel Result Value Ref Range Glucose 137 (H) 74 - 99 mg/dL Sodium 137 136 - 145 mmol/L Potassium 4.3 3.5 - 5.3 mmol/L Chloride 105 98 - 107 mmol/L Bicarbonate 24 21 - 32 mmol/L Anion Gap 12 10 - 20 mmol/L Urea Nitrogen 16 6 - 23 mg/dL Creatinine 1.64 (H) 0.50 - 1.30 mg/dL eGFR 50 (L) >60 mL/min/1.73m*2 Calcium 8.6 8.6 - 10.6 mg/dL Albumin 3.0 (L) 3.4 - 5.0 g/dL Alkaline Phosphatase 55 33 - 120 U/L Total Protein 6.0 (L) 6.4 - 8.2 g/dL AST 31 9 - 39 U/L Bilirubin, Total 0.3 0.0 - 1.2 mg/dL ALT 21 10 - 52 U/L Magnesium Result Value Ref Range Magnesium 2.00 1.60 - 2.40 mg/dL Phosphorus Result Value Ref Range Phosphorus 3.8 2.5 - 4.9 mg/dL Imaging CT A/P with contrast CLINICAL INDICATION: Draining left gluteal wound. Chest base: No focal consolidation or pleural effusion. Liver: Normal size and contour. No focal lesion. Biliary tree: Normal caliber. Unremarkable gallbladder. Spleen: No splenomegaly. Adrenals: No mass. Pancreas: Normal. Kidneys: Symmetric contrast enhancement without hydronephrosis. No focal lesion. Free fluid: None. Retroperitoneal/mesenteric lymphadenopathy: None. Aorta: Atherosclerotic. Nonaneurysmal. Bowel: The small bowel is normal in course and caliber. No colonic wall thickening or dilation. Sigmoid diverticulosis without diverticulitis. Normal appendix. Abdominal wall: Subcutaneous edema and subcutaneous emphysema of the left buttock extending along the posterior left thigh. No focal fluid collection within the left buttock. Subcutaneous edema and fluid with thickening of the posterior superficial fascia of the thigh and extension of fluid along the posterior left thigh intramuscular fascial planes. No focal drainable fluid collection. Pelvic organs/viscera: Multiple bladder diverticula. Enlarged prostate. Pelvic lymphadenopathy: Prominent left external iliac node and left inguinal nodes, likely reactive. Osseous structures: No acute abnormality. No cortical irregularity of the left femur. IMPRESSION: Subcutaneous edema and subcutaneous emphysema of the left buttock extending along the posterior left thigh. Extension of fluid into the posterior deep intramuscular fascia of the posterior left thigh. No focal drainable fluid collection. Prominent left external iliac and left inguinal lymph nodes, likely reactive. CXR - nada EKG with sinus tachycardia Assessment/Plan Assessment & Plan Hidradenitis suppurativa Wound infection Kevan La is a 49 y.o. male presenting with PMH of severe hidradenitis supprativa (disease on left buttock and gluteal fold) on STOP HS-301 trial (povorcitinib, small molecule JAK1 inhibitor) presenting with new wound infection from [facility] ED. #New wound infection with purulent drainage #Fever, white count #History of Jak1 inhibitor treatment -Last dose:: -Most likely the usual suspects (staph/strep and potentially gram negatives for chronic wounds) so coverage with Vanc/Zosyn is probably appropriate given acuity of presentation -No previous wound cultures to guide treatment -Will also send some fungal workup because of history of Alejandro treatment, though I think this less likely -Doesn't present like VZV -White count responsive to antibiotics Plan -Wound cultures -Blood cultures -UA reflex, chest x-ray -Vancomycin -Zosyn 3.375 Q6H -Fungitell, galactomannan, histoplasma, cryptococcal antigen -Consult derm clinic trial team in AM for any other recs for trial drug -Acetaminophen 975 mg Q8H for pain, Ketorolac for breakthrough -Can consider MRI as symptoms worrying for enterocutaneous fistula. However, CT didn't show anything. #Nausea/Vomiting after exertion -No history of syncope -Pain related vs cardiac -Outside hospital with normal troponins, elevated BNP (but not high enough for true heart failure) -EKG in February with NSR, no previous TTEs Plan - Admission EKG - Lipid panel, A1c - Continue to monitor #PARUL -Creatinine 1.2 -> 1.40 -> 1.64 -Probably secondary to fluid output from wound. Aggressively replete fluid with boluses #Hidradenitis supprativa -Hold povorcitinib for now due to active infection -Topical clindamycin #Allergic Rhinitis -Cetirizine 10 mg #MEGAN -Hold oral iron for now Diet: Regular DVT: none needed Code: Full Code NOK: Omkar La (brother, ) Carlos Lewis MD Cosigned by Ankit Nino MD at 09/14/2024 6:09 AM EST Associated attestation - Ankit Nino MD - 09/14/2024 6:09 AM EST I saw and evaluated the patient. I personally obtained the gomez and critical portions of the history and physical exam or was physically present for gomez and critical portions performed by the resident/fellow. I reviewed the resident/fellow's documentation and discussed the patient with the resident/fellow. I agree with the resident/fellow's medical decision making as documented in the note. documented in this encounter [facility] Work Phone: 09-13-2024 Emergency department Note [facility] ETA 8pm [facility] 09-13-2024 Emergency department Note transfer line called - pt will go to [facility] bed A. Number for report [phone] [facility] 09-13-2024 Consult note Formatting of th is note is different from the original. Images from the original note were not included. Pharmacy Managed Vancomycin Dosing Service Consult Note Consult Date: 09/13/24 Patient Name: Kevan La Allergies: Patient has no known allergies. Age: 49 y.o. Sex: male There is no height or weight on file to calculate BMI. Lab Results Component Value Date CREATININE 1.48 (H) 09/12/2024 CREATININE 1.20 04/08/2023 BUN 18 09/12/2024 BUN 14 04/08/2023 WBC 17.8 (H) 09/12/2024 WBC 12.7 (H) 04/08/2023 Calculated CrCl: 85 mL/min Consulted By: Dr. Fer Kennedy Infectious Diagnosis: SSTI (AUC Goal 400-600 mg/L*hr) Antimicrobials: Patient recently received an antibiotic (last 12 hours) None Assessment/Plan: Doses, serum creatinine, and vancomycin levels interfaced automatically to Backtrace I/O and data has been analyzed and interpreted. Start Vancomycin 2000 mg every 24 hours based on patient age, weight, renal function, and infectious diagnosis (20 mg/kg). Predicted AUC = 459 mg/L*hr (goal 400-600 mg/L*hr) Will assess level on 09/14/24 @ 0500 and adjust as appropriate. Trend serum creatinine. Orders placed. Thank you for this consult. Please secure text or call with questions. DATE: 09/13/24 TIME: 11:05 AM Melva Mcdonald RPh Clinical Pharmacist Available via Secure Chat [facility] 09-13-2024 Consult note Formatting of th is note is different from the original. Images from the original note were not included. Pharmacy Managed Vancomycin Dosing Service Consult Note Consult Date: 09/13/24 Patient Name: Kevan La Allergies: Patient has no known allergies. Age: 49 y.o. Sex: male There is no height or weight on file to calculate BMI. Lab Results Component Value Date CREATININE 1.48 (H) 09/12/2024 CREATININE 1.20 04/08/2023 BUN 18 09/12/2024 BUN 14 04/08/2023 WBC 17.8 (H) 09/12/2024 WBC 12.7 (H) 04/08/2023 Calculated CrCl: 85 mL/min Consulted By: Dr. Fer Kennedy Infectious Diagnosis: SSTI (AUC Goal 400-600 mg/L*hr) Antimicrobials: Patient recently received an antibiotic (last 12 hours) None Assessment/Plan: Doses, serum creatinine, and vancomycin levels interfaced automatically to Backtrace I/O and data has been analyzed and interpreted. Start Vancomycin 2000 mg every 24 hours based on patient age, weight, renal function, and infectious diagnosis (20 mg/kg). Predicted AUC = 459 mg/L*hr (goal 400-600 mg/L*hr) Will assess level on 09/14/24 @ 0500 and adjust as appropriate. Trend serum creatinine. Orders placed. Thank you for this consult. Please secure text or call with questions. DATE: 09/13/24 TIME: 11:05 AM Melva Mcdonald RPh Clinical Pharmacist Available via Secure Chat documented in this encounter [facility] 09-13-2024 Emergency department Note [facility] Research Nurse called back. Per the Research Physician, the patient does not have to be transferred to [facility]. All that needs to be done is a "Biologic Medication" needs prescribed, and the patient can be admitted here. The patient is in an outpatient study. If any further questions, we can contact AMAN Hancock @ [phone]. [facility] 09-13-2024 Emergency department Note Patient is in a study at [facility]. He has provided a card for his physician and nurse in the study. I contacted the nurse "Karissa" and left a message @ [phone]. Patient is on the waiting list for and as of 08 today there are still no rooms available at for this patient. Karissa called back and will contact her MD's over her and will get back with me. [facility] 09-12-2024 Physician Emergency department Note [facility] ED EMERGENCY DEPARTMENT ENCOUNTER Pt Name: Kevan La Birthdate 1975 Date of evaluation: 09/12/2024 Provider: Xiomara Kauffman MD CHIEF COMPLAINT Chief Complaint Patient presents with Dehydration Fatigue Patient arrived to ED c/o dehydration and fatigue for a few days. Also c/o cough. HISTORY OF PRESENT ILLNESS I wore proper PPE for the entirety of this encounter. Kevan La is a 49 y.o. male who presents to the emergency department with draining L thigh wound (hx of HS), fatigue, dehydration. Symptoms chronic but worse than usual. Notes dry cough and shortness of breath with walking. No chest pain. Has some post-tussive emesis. Denies other significant medical issues besides incontinence. Nursing Notes were reviewed. REVIEW OF SYSTEMS As above PAST MEDICAL HISTORY No past medical history on file. SURGICAL HISTORY No past surgical history on file. CURRENT MEDICATIONS Previous Medications No medications on file ALLERGIES Patient has no known allergies. FAMILY HISTORY No family history on file. SOCIAL HISTORY Social History Socioeconomic History Marital status: Single SCREENINGS PHYSICAL EXAM ED Triage Vitals [09/12/241947] Temp Heart Rate Resp BP 38 C (100.4 F) (!) 111 16 124/81 SpO2 Temp Source Heart Rate Source Patient Position 99 % Temporal Monitor -- BP Location FiO2 (%) -- -- Constitutional: No acute distress HEENT:Head: Atraumatic Eyes: Conjunctivae normal. ENT: Mucous membranes moist. Normal oropharynx Neck: Normal ROM, supple CV: tachycardic RESP: CTAB, good respiratory effort, no increased wob GI: Abdomen soft, non-tender, non-distended, +BS, no guarding or rebound tenderness MSK: Normal bulk and tone, no gross deformity EXTR: Warm and well perfused, no edema SKIN: Multiple wounds on the L buttocks draining pus. Induration. No fluctuance. PSYCH: Appropriate affect, cooperative behavior NEURO: Alert, face symmetric, no slurred speech DIAGNOSTIC RESULTS Interpretation per the Radiologist below, if available at the time of this note: CT abdomen pelvis w contrast Final Result Subcutaneous edema and subcutaneous emphysema of the left buttock extending along the posterior left thigh. Extension of fluid into the posterior deep intramuscular fascia of the posterior left thigh. No focal drainable fluid collection. Prominent left external iliac and left inguinal lymph nodes, likely reactive. Additional incidental findings as above. Report Dictated on Electronically Signed By: Raisa Eaton DO Electronically Signed Date/Time: 09/12/2024 9:48 PM EST XR chest 1 view Final Result 1. No acute findings. Report Dictated on Electronically Signed By: Elias Hutson MD Electronically Signed Date/Time: 09/12/2024 8:28 PM EST LABS: Labs Reviewed BASIC METABOLIC PANEL - Abnormal Result Value SODIUM 140 POTASSIUM 4.9 CHLORIDE 106 CARBON DIOXIDE 22 UREA NITROGEN 18 CREATININE 1.48 (*) GLUCOSE 113 (*) CALCIUM 9.4 ANION GAP 12 eGFR 56.9 (*) CBC WITH AUTO DIFFERENTIAL - Abnormal Auto WBC 17.8 (*) RBC 3.19 (*) Hemoglobin 8.9 (*) Hematocrit 28.1 (*) MCV 88.1 MCH 27.9 MCHC 31.7 RDW 17.0 (*) Platelets 568 (*) MPV 8.6 (*) nRBC 0.0 Neutrophils Relative 77.0 Lymphocytes Relative 12.0 (*) Monocytes Relative 8.1 Eosinophils Relative 2.0 Basophils Relative 0.2 Immature Grans % 0.7 Neutrophils Absolute 13.7 (*) Lymphocytes Absolute 2.1 Monocytes Absolute 1.5 (*) Eosinophils Absolute 0.4 Basophils Absolute 0.0 Immature Grans Absolute 0.1 (*) NT PRO BNP - Abnormal NT PRO BNP 589 (*) HIGH SENSITIVITY TROPONIN, SERIAL BASELINE - Normal Troponin HS, Serial Baseline 4 LACTIC ACID WITH REFLEX - Normal LACTIC ACID 2.0 BLOOD CULTURE BLOOD CULTURE AEROBIC AND ANAEROBIC CULTURE WITH STAIN Narrative: The following orders were created for panel order Aerobic and Anaerobic Culture with Stain. Procedure Abnormality Status --------- ------ Culture, Aerobic Bacteri...[[id number]] In process Anaerobic culture[[id number]] In process Please view results for these tests on the individual orders. CULTURE, AEROBIC BACTERIA WITH GRAM STAIN CULTURE ANAEROBIC HIGH SENSITIVITY TROPONIN, SERIAL, SECOND TEST EMERGENCY DEPARTMENT COURSE and DIFFERENTIAL DIAGNOSIS/MDM: Vitals: Vitals: 09/12/24 1948 09/12/24213609/12/242209 BP: 124/81 113/62 BP Location: Left arm Pulse: (!) 111 102 Resp: 16 18 Temp: 38 C (100.4 F) TempSrc: Temporal SpO2: 99% 100% Weight: 102 kg (225 lb) Medications vancomycin in NS (Vancocin) IVPB 2,000 mg (2,000 mg IntraVENous New Bag 09/12/242239) sodium chloride 0.9 % bolus 1,000 mL (0 mL IntraVENous Stopped 09/12/242158) piperacillin-tazobactam (Zosyn) 4,500 mg in sodium chloride 0.9 % 100 mL IVPB Mini-Bag Plus (0 mg IntraVENous Stopped 09/12/242231) sodium chloride 0.9 % bolus 1,000 mL (1,000 mL IntraVENous New Bag 09/12/242158) iopamidol (Isovue-370) 76 % injection 75 mL (75 mL IntraVENous Given 09/12/242132) I personally saw the patient and performed a substantive portion of the visit including all aspects of the medical decision making. Patient is tachycardic. Borderline fever. Moderate leukocytosis. Lactic acid normal. Mildly elevated creatinine. But BUN is normal, so PARUL is less likely. CT abdomen pelvis shows Subcutaneous edema and subcutaneous emphysema of the left buttock extending along the posterior left thigh. Extension of fluid into the posterior deep intramuscular fascia of the posterior left thigh. No focal drainable fluid collection. " I consulted general surgery. As below agreed with antibiotics. Recommended admission at given that is where his clinical trial is. As below, accepted by [facility]. I discussed test results and plan with the patient. ED Course as of 09/12/24 234 [address] Sep 12, 20242011 Draining L thigh wound (hx of HS), fatigue, dehydration. Symptoms chronic but worse than usual. Notes dry cough and shortness of breath with walking. No chest pain. Has some post-tussive emesis. Denies other significant medical issues besides incontinence. [RADHA] 2016 Exam significant for multiple wounds on the L buttocks draining pus. Induration. No fluctuance. [RADHA] 2016 Pt also notes he is on a Derm clinical trial with a treatment for HS (Study STOP-HS1 [id number] povorcitinib 45mg or 75mg tablet) [RADHA] 2206 I discussed with general surgery Dr. Marcus who agreed with antibiotics and admission and will likely need surgery at some point. Recommended admitting where the patient is currently on trial. [RADHA] 2308 About 5 minutes ago I discussed over the phone with Dr. Quintero from [facility] who accepted the admission. [RADHA] ED Course User Index [RADHA] Xiomara Kauffman MD Diagnoses as of 09/12/242340 Buttock wound, left, initial encounter Sepsis, due to unspecified organism, unspecified whether acute organ dysfunction present (HCC) Hidradenitis suppurativa PROCEDURES: Unless otherwise noted below, none Procedures Patients symptoms are consistent with sepsis, severe sepsis, or septic shock (If yes use ".sepsiscoremeasure"): CORE MEASURE DATA SIRS Criteria Sepsis Criteria Severe Sepsis Criteria Septic Shock Criteria Must meet 2: [] Temperature > 100.4 F (38 C) or < 96.8 F (36 C) [x] HR > 90 [] RR > 20 [x] WBC > 12 or < 4 or 10% bands Must be confirmed or suspected to move forward with diagnosis of sepsis. Must select at least one: [x] Bacterial Infection Confirmed or Suspected. [] Viral Infection Confirmed or Suspected. [] No infection present. Patient does not meet criteria for Sepsis. Must meet 1: [] Lactate > 2 or [] Signs of Organ Dysfunction: - SBP < 90 or MAP < 65 - Altered mental status - Creatinine > 2 or increased from baseline - Urine Output < 0.5 ml/kg/hr - Bilirubin > 2 - INR > 1.5 - Platelets < 100,000 - Acute Respiratory Failure as evidenced by new need for NIPPV or mechanical ventilation [x] No criteria met for Severe Sepsis. Must meet 1: [] Lactate = or > 4 or [] SBP < 90 or MAP < 65 for at least two readings in the first hour after fluid bolus administration [x] No criteria met for Septic Shock. No data found. Recent Labs 09/12/242037 WBC 17.8* LACTATE 2.0 CREATININE 1.48* PLT 568* Sepsis Identified at 2037. Fluid Resuscitation Rational: at least 30mL/kg based on entered actual body weight at time of triage Infection Source: Skin or Soft Tissue Reassessment Exam: Not applicable. Patient does not have Septic Shock. Xiomara Kauffman MD FINAL IMPRESSION 1. Buttock wound, left, initial encounter 2. Sepsis, due to unspecified organism, unspecified whether acute organ dysfunction present (HCC) 3. Hidradenitis suppurativa DISPOSITION/PLAN Transfer To Another Facility 09/12/2024 11:10:42 PM PATIENT REFERRED TO: No follow-up provider specified. DISCHARGE MEDICATIONS: New Prescriptions No medications on file (Please note: Portions of this note were completed with a voice recognition program. Efforts were made to edit the dictations but occasionally words and phrases are mis-transcribed.) Xiomara Kauffman MD JUAN Emergency Medicine Physician [facility] Xiomara Kauffman MD 09/12/24 4877 [facility] 08-20-2024 History of Present illness Narrative Patient seen for Week 36 of STOP HS-301 trial by Marlon Hughes MD No serious adverse events or major changes in concomitant medications noted. Please see physical copy of notes located in subject binder for additional information. documented in this encounter [facility] Work Phone: 04-04-2024 History of Present illness Narrative Patient seen for Unscheduled Visit of STOP HS-301 trial by Kimber Last MD No serious adverse events or major changes in concomitant medications noted. Please see physical copy of notes located in subject binder for additional information. documented in this encounter [facility] Work Phone: Evaluation note Diagnosis Hidradenitis suppurativa- Primary [facility]itis [facility] Clinical trial participant- Primary Clinical trial participant documented in this encounter [facility] Work Phone: Evaluation note* Diagnosis Clinical trial participant documented in this encounter [facility] Work Phone: Evaluation note* Diagnosis Clinical trial participant documented in this encounter [facility] Work Phone: Evaluation note* Diagnosis Clinical trial participant- Primary documented in this encounter [facility] Work Phone: Evaluation note* Diagnosis Clinical trial participant- Primary documented in this encounter [facility] Work Phone: Evaluation note* Diagnosis Clinical trial participant- Primary documented in this encounter [facility] Work Phone: Evaluation note* Diagnosis Clinical trial participant- Primary documented in this encounter [facility] Work Phone: Evaluation note* Diagnosis Clinical trial participant- Primary documented in this encounter [facility] Work Phone: Evaluation note* Diagnosis Clinical trial participant documented in this encounter [facility] Work Phone: Evaluation note* Diagnosis Clinical trial participant- Primary documented in this encounter [facility] Work Phone: [phone] note* Diagnosis Clinical trial participant- Primary documented in this encounter [facility] Work Phone: Evaluation note* Diagnosis Buttock wound, left, initial encounter- Primary Sepsis, due to unspecified organism, unspecified whether acute organ dysfunction present (HCC) Hidradenitis suppurativa Hidradenitis [facility] Diagnosis Wound infection- Primary Posttraumatic wound infection not elsewhere classified Wound infection Posttraumatic wound infection not elsewhere classified Nausea Nausea alone Constipation, unspecified constipation type Viral infection Smoking Tobacco use disorder Hidradenitis suppurativa Hidradenitis documented in this encounter [facility] Work Phone: [phone] note* Diagnosis Wound infection- Primary Posttraumatic wound infection not elsewhere classified Wound infection Posttraumatic wound infection not elsewhere classified Nausea Nausea alone Constipation, unspecified constipation type Viral infection Smoking Tobacco use disorder Hidradenitis suppurativa Hidradenitis documented in this encounter [facility] Work Phone: [phone] note* Diagnosis Counseling on health promotion and disease prevention- Primary Other specified counseling Hidradenitis suppurativa Hidradenitis documented in this encounter [facility] Work Phone: [phone] note* Diagnosis Clinical trial participant- Primary documented in this encounter [facility] Work Phone: [phone] note* Diagnosis Gluteal abscess- Primary Cellulitis and abscess of buttock Hidradenitis suppurativa Hidradenitis Abscess Cellulitis and abscess of unspecified site Wound infection Posttraumatic wound infection not elsewhere classified Pain of left lower extremity Constipation, unspecified constipation type Bacteremia due to Staphylococcus Gluteal abscess Cellulitis and abscess of buttock Nicotine dependence, uncomplicated, unspecified nicotine product type Hidradenitis suppurativa Hidradenitis Wound infection Posttraumatic wound infection not elsewhere classified Abscess Cellulitis and abscess of unspecified site Chronic renal insufficiency Chronic kidney disease, unspecified Bacteremia due to Staphylococcus documented in this encounter [facility] Work Phone: [phone] note* Diagnosis Abscess- Primary Cellulitis and abscess of unspecified site Abscess Cellulitis and abscess of unspecified site [facility] Diagnosis Gluteal abscess- Primary Cellulitis and abscess of buttock Hidradenitis suppurativa Hidradenitis Abscess Cellulitis and abscess of unspecified site Wound infection Posttraumatic wound infection not elsewhere classified Pain of left lower extremity Constipation, unspecified constipation type Bacteremia due to Staphylococcus Gluteal abscess Cellulitis and abscess of buttock Nicotine dependence, uncomplicated, unspecified nicotine product type Hidradenitis suppurativa Hidradenitis Wound infection Posttraumatic wound infection not elsewhere classified Abscess Cellulitis and abscess of unspecified site Chronic renal insufficiency Chronic kidney disease, unspecified Bacteremia due to Staphylococcus Gluteal abscess- Primary Cellulitis and abscess of buttock Hidradenitis suppurativa Hidradenitis Skin lesion Unspecified disorder of skin and subcutaneous tissue Squamous cell carcinoma of left hip 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) Wound infection Posttraumatic wound infection not elsewhere classified On deep vein thrombosis (DVT) prophylaxis Vitamin deficiency Unspecified vitamin deficiency Nausea Nausea alone Opioid-induced constipation documented in this encounter [facility] Work Phone: Evaluation note* Diagnosis Gluteal abscess- Primary Cellulitis and abscess of buttock Hidradenitis suppurativa Hidradenitis Abscess Cellulitis and abscess of unspecified site Wound infection Posttraumatic wound infection not elsewhere classified Pain of left lower extremity Constipation, unspecified constipation type Bacteremia due to Staphylococcus Gluteal abscess Cellulitis and abscess of buttock Nicotine dependence, uncomplicated, unspecified nicotine product type Hidradenitis suppurativa Hidradenitis Wound infection Posttraumatic wound infection not elsewhere classified Abscess Cellulitis and abscess of unspecified site Chronic renal insufficiency Chronic kidney disease, unspecified Bacteremia due to Staphylococcus MGUS (monoclonal gammopathy of unknown significance)- Primary Monoclonal 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 Work Phone: Evaluation note* Diagnosis Abscess of left hip- Primary Abscess of left hip [facility] Diagnosis Gluteal abscess- Primary Cellulitis and abscess of buttock Hidradenitis suppurativa Hidradenitis Abscess Cellulitis and abscess of unspecified site Wound infection Posttraumatic wound infection not elsewhere classified Pain of left lower extremity Constipation, unspecified constipation type Bacteremia due to Staphylococcus Nicotine dependence, uncomplicated, unspecified nicotine product type Hidradenitis suppurativa Hidradenitis Wound infection Posttraumatic wound infection not elsewhere classified Abscess Cellulitis and abscess of unspecified site Chronic renal insufficiency Chronic kidney disease, unspecified Bacteremia due to Staphylococcus Gluteal abscess- Primary Cellulitis and abscess of buttock Gluteal abscess Cellulitis and abscess of buttock Squamous cell carcinoma of left hip Wound infection Posttraumatic wound infection not elsewhere classified Opioid-induced constipation 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) Gastroesophageal reflux disease without esophagitis Esophageal reflux Rhinitis, unspecified type documented in this encounter [facility] Work Phone: Evaluation note* Diagnosis Gluteal abscess- Primary Cellulitis and abscess of buttock Hidradenitis suppurativa Hidradenitis Abscess Cellulitis and abscess of unspecified site Wound infection Posttraumatic wound infection not elsewhere classified Pain of left lower extremity Constipation, unspecified constipation type Bacteremia due to Staphylococcus Nicotine dependence, uncomplicated, unspecified nicotine product type Hidradenitis suppurativa Hidradenitis Wound infection Posttraumatic wound infection not elsewhere classified Abscess Cellulitis and abscess of unspecified site Chronic renal insufficiency Chronic kidney disease, unspecified Bacteremia due to Staphylococcus Squamous cell carcinoma of left hip- Primary Hypercalcemia of malignancy Hypercalcemia documented in this encounter [facility] Work Phone: Evaluation note* Diagnosis Sepsis, due to unspecified organism, unspecified whether acute organ dysfunction present (HCC)- Primary Sepsis, due to unspecified organism, unspecified whether acute organ dysfunction present (HCC) Abscess of left hip [facility] noteNo assessment information [facility] Work [facility]: Evaluation note* Diagnosis Gluteal abscess- Primary Cellulitis and abscess of buttock Hidradenitis suppurativa Hidradenitis Abscess Cellulitis and abscess of unspecified site Wound infection Posttraumatic wound infection not elsewhere classified Pain of left lower extremity Constipation, unspecified constipation type Bacteremia due to Staphylococcus Nicotine dependence, uncomplicated, unspecified nicotine product type Wound infection Posttraumatic wound infection not elsewhere classified Abscess Cellulitis and abscess of unspecified site Chronic renal insufficiency Chronic kidney disease, unspecified Bacteremia due to Staphylococcus 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, including hip documented in this encounter [facility] Work Phone: Evaluation note* Diagnosis Gluteal abscess- Primary Cellulitis and abscess of buttock Hidradenitis suppurativa Hidradenitis Abscess Cellulitis and abscess of unspecified site Wound infection Posttraumatic wound infection not elsewhere classified Pain of left lower extremity Constipation, unspecified constipation type Bacteremia due to Staphylococcus Nicotine dependence, uncomplicated, unspecified nicotine product type Wound infection Posttraumatic wound infection not elsewhere classified Abscess Cellulitis and abscess of unspecified site Chronic renal insufficiency Chronic kidney disease, unspecified Bacteremia due to Staphylococcus 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, including hip- Primary 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, including hip documented in this encounter [facility] Work Phone: Evaluation note* Diagnosis Gluteal abscess- Primary Cellulitis and abscess of buttock Hidradenitis suppurativa Hidradenitis Abscess Cellulitis and abscess of unspecified site Wound infection Posttraumatic wound infection not elsewhere classified Pain of left lower extremity Constipation, unspecified constipation type Bacteremia due to Staphylococcus Nicotine dependence, uncomplicated, unspecified nicotine product type Wound infection Posttraumatic wound infection not elsewhere classified Abscess Cellulitis and abscess of unspecified site Chronic renal insufficiency Chronic kidney disease, unspecified Bacteremia due to Staphylococcus Encounter for antineoplastic radiation therapy 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, including hip documented in this encounter [facility] Work Phone: Evaluation note* Diagnosis Gluteal abscess- Primary Cellulitis and abscess of buttock Hidradenitis suppurativa Hidradenitis Abscess Cellulitis and abscess of unspecified site Wound infection Posttraumatic wound infection not elsewhere classified Pain of left lower extremity Constipation, unspecified constipation type Bacteremia due to Staphylococcus Nicotine dependence, uncomplicated, unspecified nicotine product type Wound infection Posttraumatic wound infection not elsewhere classified Abscess Cellulitis and abscess of unspecified site Chronic renal insufficiency Chronic kidney disease, unspecified Bacteremia due to Staphylococcus Encounter for antineoplastic radiation therapy 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, including hip documented in this encounter [facility] Work Phone: Evaluation note* Diagnosis Gluteal abscess- Primary Cellulitis and abscess of buttock Hidradenitis suppurativa Hidradenitis Abscess Cellulitis and abscess of unspecified site Wound infection Posttraumatic wound infection not elsewhere classified Pain of left lower extremity Constipation, unspecified constipation type Bacteremia due to Staphylococcus Nicotine dependence, uncomplicated, unspecified nicotine product type Wound infection Posttraumatic wound infection not elsewhere classified Abscess Cellulitis and abscess of unspecified site Chronic renal insufficiency Chronic kidney disease, unspecified Bacteremia due to Staphylococcus Encounter for antineoplastic radiation therapy 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, including hip documented in this encounter [facility] Work Phone: Evaluation note* Diagnosis Gluteal abscess- Primary Cellulitis and abscess of buttock Hidradenitis suppurativa Hidradenitis Abscess Cellulitis and abscess of unspecified site Wound infection Posttraumatic wound infection not elsewhere classified Pain of left lower extremity Constipation, unspecified constipation type Bacteremia due to Staphylococcus Nicotine dependence, uncomplicated, unspecified nicotine product type Wound infection Posttraumatic wound infection not elsewhere classified Abscess Cellulitis and abscess of unspecified site Chronic renal insufficiency Chronic kidney disease, unspecified Bacteremia due to Staphylococcus Encounter for antineoplastic radiation therapy 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, including hip documented in this encounter [facility] Work Phone: Reason for referral (narrative)No reason for referral information availableWUpper [facility] Work Phone: Reason for visit Narrative* Auth/Cert Specialty Diagnoses / Procedures Referred By Contac t Referred To Contact Diagnoses Sepsis Procedures No [place] [address] [place] [address] Phone: tel: fax: [facility] [phone] [facility] [place] [address] Referral ID Status Reason Start Date Expiration Date Visits Re quested Visits Authorized [id number] [address] [facility] Work Phone: Reason for visit Narrative* Auth/Cert (Routine) Specialty Diagnoses / Procedures Referred By Contac t Referred To Contact Diagnoses Gluteal abscess Gluteal mass vs abscess Procedures uknown Baldomero Wilson [place] [id number] [place] [address] Phone: tel: fax: [facility] 3 [address] [place] [address] Phone: tel: Referral ID Status Reason Start Date Expiration Date Visits Re quested Visits Authorized [id number] [address] [facility] Work Phone: Reason for visit Narrative* SCC Consult (Routine) - Authorized Specialty Diagnoses / Procedures Referred By Contac t Referred To Contact Hematology and Oncology Diagnoses Squamous cell [place] [address] [place] [address] Phone: tel: fax: [place] [address] [place] [address] Phone: tel: fax: Referral ID Status Reason Start Date Expiration Date Visits Requested Visits Authorized [id number] Authorized Specialty Services Required 11/19/2024 11/19/[address] [facility] Work Phone: Renbml for visit Narrative* Auth/Cert Specialty Diagnoses / Procedures Referred By Contac t Referred To Contact Diagnoses [place] [address] [place] [address] Phone: tel: fax: [facility] [phone] [place] [address] Referral ID Status Reason Start Date Expiration Date Visits Re quested Visits Authorized [id number] [address] [facility] Work Phone: Reason for Referral Specialty Diagnoses / Procedures Referred By Contac t Referred To Contact Diagnoses Clinical trial participant Procedures ECG 12 lead (Ancillary Performed) Kay Hutchinson [place] PhD [id number] [facility] [place] [address] Referral ID Status Reason Start Date Expiration Date V isits Requested Visits Authorized [id number] Authorized 02/29/2024 02/28/2025 1 1 Advance Directives No Advanced Directives Records Found Date Activated Date Inactivated Comments 09/13/2024 9:41 PM Question Answer Comments Plan of Care: Code Status Discussion Completed Decision Maker: Patient Date Activated Date Inactivated Comments 09/13/2024 9:41 PM Question Answer Comments Plan of Care: Code Status Discussion Completed Decision Maker: Patient Date Activated Date Inactivated Comments 11/08/2024 8:27 PM 11/10/2024 4:43 AM Date Activated Date Inactivated Comments 12/07/2024 5:56 AM 12/07/2024 5:37 PM Date Activated Date Inactivated Comments 11/08/2024 8:27 PM 11/10/2024 4:43 AM Date Activated Date Inactivated Comments 12/23/2024 9:41 AM 12/24/2024 3:12 PM Date Activated Date Inactivated Comments 12/07/2024 5:56 AM 12/07/2024 5:37 PM Date Activated Date Inactivated Comments 11/08/2024 8:27 PM 11/10/2024 4:43 AM Summary Purpose Family History No Family History Records FoundNo Family History Records FoundNo Family History Records FoundNo Family History Records FoundNo Family History Records Found Chief Complaint and Reason for Visit Chief Complaint Admit Date [facility] October 24, 2024 5:00am Chief Complaint Admit Date [facility] October 24, 2024 5:00am [facility] December 04, 2024 5 :00am Additional Source Comments Reason for Visit (unrecogniz ed section and content) Reason Comments Wound Check Specialty Diagnoses / Procedures Referred By Adrian melgar Referred To Contact Diagnoses Abscess of left hip Procedures . Juvenal Mathur MD [address] [address] Phone: tel: fax: [facility] [address] [place] [phone] Phone: tel: Referral ID Status Reason Start Date Expiration Date Visits Re quested Visits Authorized [id number] 1 1 Specialty Diagnoses / Procedures Referred By Adrian melgar Referred To Contact Diagnoses Clinical trial participant Procedures ECG 12 lead (Ancillary Performed) Kay Hutchinson MD PhD [id number] [place] [address] Referral ID Status Reason Start Date Expiration Date V isits Requested Visits Authorized [id number] Authorized 02/29/2024 02/28/2025 1 1 Reason Comments Dehydration Fatigue Patient arrived to [facility] c/o dehydration and fatigue for a few days. Also c/o cough. Specialty Diagnoses / Procedures Referred By Adrian melgar Referred To Contact Diagnoses . Procedures . [facility] [address] [place] [address] Phone: tel: [facility] [address] [place] [address] Phone: tel: Referral ID Status Reason Start Date Expiration Date Visits Re quested Visits Authorized [id number] 1 1 Reason Comments Wound Check Pt arrives from SNF for possible sepsis. Had wound on buttock drained at in Sep. Has not had IV antibiotics at facility. Hx of rare skin condition with frequent abscesses. Aox4. Some N/V. Hypotensive 80-90 systolic. Reason Comments Follow-up Reason Comments Wound Infection Pt arrives by [facility] are from [facility] in [place], [facility] pt has had wound infection since September, pt stood up out of bed last night and it started bleeding and having a foul odor last night. Specialty Diagnoses / Procedures Referred By Adrian melgar Referred To Contact Diagnoses Sepsis, due to unspecified organism, unspecified whether acute organ dysfunction present (HCC) Procedures . Clarita Hay, [address] [place] [address] Phone: tel: fax: [facility] [address] [place] [phone] Phone: tel: Referral ID Status Reason Start Date Expiration Date Visits Re quested Visits Authorized [id number] 1 1 Reason Comments OTV In house Scheduled Active and Recently Administ ered Medications (unrecognized section and content) Medication Order 09/11/2024 09/12/2024 09/13/2024 clindamycin 1 % gel Topical, 2 times daily, First dose on Mon09/13/24 at 2100, Left buttocks: Hydradenitis suppurativa -cleanse with Hibiclens and rinse, apply Clindamycin 1%, cover with Maxorb and ABD pads, secure with Mesh underpants BID and PRN -offload areas as much as possible while in bed and in chair 2100 (Canceled Entry - Provider: Automatic Discharge Provider - Comment: Automatically canceled at discontinue of medication order) ketorolac (Toradol) injection 15 mg (COMPLETED) 15 mg, IntraVENous, Once, On Mon09/13/24 at 0050, For 1 dose 0101 (Given - Provid er: Kristy Montes RN) piperacillin-tazobactam (Zosyn) 4,500 mg in sodium chloride 0.9 % 100 mL IVPB Mini-Bag Plus (COMPLETED) 4,500 mg, IntraVENous, at 200 mL/hr, Administer over 0.5 Hours, Once, On Mon09/12/24 at 2105, For 1 dose, Mini-Bag Plus bag, Suspected Indication (Select all that apply): Skin and Soft Tissue Infection 2201 (New Bag - Provider: Kristy Montes RN)223 (Stopped - Provider: Kristy Montes, AMAN) piperacillin-tazobactam (Zosyn) 4,500 mg in sodium chloride 0.9 % 100 mL IVPB Mini-Bag Plus 4,500 mg, IntraVENous, at 200 mL/hr, Administer over 0.5 Hours, Every 8 hours, First dose on Mon09/13/24 at 1045, For 4 doses, Mini-Bag Plus bag, Suspected Indication (Select all that apply): Skin and Soft Tissue Infection 1132 (New Bag - Prov ider: Diamond Gan RN)1202 (Stopped - Provider: Yenny Unger RN)1839 (New Bag - Provider: Yenny Unger RN)1923 (Stopped - Provider: Diamond Gan RN) sodium chloride 0.9 % bolus 1,000 mL (COMPLETED) 1,000 mL, IntraVENous, at 1,000 mL/hr, Administer over 1 Hours, Once, On Mon09/12/24 at 2020, For 1 dose 2038 (New Bag - Provider: Fidel Pan RN)2158 (Stopped - Provider: Kristy Montes RN) sodium chloride 0.9 % bolus 1,000 mL (COMPLETED) 1,000 mL, IntraVENous, at 1,000 mL/hr, Administer over 1 Hours, Once, On Mon09/12/24 at 2110, For 1 dose 2158 (New Bag - Provider: Kristy Montes RN)2258 (Stopped - Provider: Kristy Montes RN) vancomycin in NS (Vancocin) IVPB 2,000 mg (COMPLETED) 2,000 mg (rounded from 2,040 mg = 20 mg/kg 102 kg), IntraVENous, at 250 mL/hr, Administer over 120 Minutes, Once, On Key 09/12/24 at 2300, For 1 dose, premix bag, Suspected Indication (Select all that apply): Skin and Soft Tissue Infection 2239 (New Bag - Provider: Kristy Montes RN) 39 (Stopped - Provider: Kristy Montes RN) vancomycin in NS (Vancocin) IVPB 2,000 mg 2,000 mg, IntraVENous, at 250 mL/hr, Administer over 120 Minutes, Every 24 hours, First dose on Mon09/13/24 at 2000, premix bag, Suspected Indication (Select all that apply): Skin and Soft Tissue Infection 1955 (New Bag - Prov ider: Yenny Unger RN)2014 (Stopped - Provider: Diamond Gan RN) PRN Medication Order 09/11/2024 09/12/2024 09/13/2024 fentaNYL (Sublimaze) injection 50 mcg 50 mcg, IntraVENous, Every 1 hour PRN, moderate pain (4-6), severe pain (7-10), Starting on Mon09/13/24 at 1732, For 3 doses, If oral and IV narcotics ordered, use oral first and only use IV if oral is ineffective or cannot take oral. Do Not give oral and IV within 1 hour of each other unless specifically ordered. 174 (Given - Provid er: Yenny Unger RN) iopamidol (Isovue-370) 76 % injection 75 mL (COMPLETED) 75 mL, IntraVENous, IMG once PRN, contrast, Starting on Key 09/12/24 at 2133, For 1 dose 2132 (Given - Provider: Kristy Horn, RT (R)(CT)) morphine injection 4 mg (CANCELED) 4 mg, IntraVENous, Every 4 hours PRN, severe pain (7-10), Starting on Mon09/13/24 at 0045, For 3 doses, If oral and IV narcotics ordered, use oral first and only use IV if oral is ineffective or cannot take oral. Do Not give oral and IV within 1 hour of each other unless specifically ordered. 0943 (Given - Provid er: Selena Saba RN)1527 (Given - Provider: Yenny Unger RN) naloxone (Narcan) injection 0.4 mg 0.4 mg, IntraVENous, Every 5 min PRN, opioid reversal, respiratory depression, Starting on Mon09/13/24 at 1050, +++ For RR <10, pinpoint pupils, over sedation for opioid reversal - MUST notify carbonating stone cleaner provider immediately after first dose, may give IM or SQ if no IV access +++ Scheduled Medication Order 09/15/2024 09/16/2024 09/17/2024 acetaminophen (Tylenol) tablet 975 mg 975 mg, oral, Every 8 hours, First dose (after last modification) on Mon09/13/24 at 2315, If ordered PRN for pain, nurse is permitted to administer this medication for higher pain scores based on patient preference? Yes 0618 (Given - Provider: Carley Arevalo RN)1416 (Given - Provider: Zuleyma Sanchez RN) 0531 (Not Given - Provider: Carley Arevalo RN - Reason: Patient/family refused)0658 (Given - Provider: Carley Arevalo RN)1632 (Given - Provider: Zuleyma Sanchez RN)2224 (Given - Provider: Carley Arevalo RN) 0902 (Given - Provider: Ronald Adair, AMAN)1515 (Due)2315 (Due) cetirizine (ZyrTEC) tablet 10 mg 10 mg, oral, Daily, First dose on Mon09/14/24 at 0900 0829 (Given - Provider: Jose Armando Orozco RN) 0826 (Given - Provider: Jose Armando Orozco RN) 0902 (Given - Provider: Ronald Adair, AMAN) clindamycin (Cleocin T) 1 % lotion Topical, 2 times daily, First dose on Mon09/14/24 at 1315, Apply to left posterior thigh and buttocks. 1338 (Given - Provider: Zuleyma Sanchez RN)2150 (Given - Provider: Carley Arevalo RN) 1353 (Given - Provider: Zuleyma Sanchez RN)2226 (Given - Provider: Carley Arevalo RN) 0902 (Given - Provider: Ronald Adair RN)2100 (Due) enoxaparin (Lovenox) syringe 40 mg 40 mg, subcutaneous, Every 24 hours scheduled, First dose on Mon09/15/24 at 1600 1605 (Given - Provider: Jose Armando Orozco RN) 1632 (Given - Provider: Zuleyma Sanchez RN) 1600 (Due) oxyCODONE (Roxicodone) immediate release tablet 5 mg (COMPLETED) 5 mg, oral, Once, On Mon09/16/24 at 0730, For 1 dose, If ordered PRN for pain, nurse is permitted to administer this medication for higher pain scores based on patient preference? Yes 0834 (Given - Provider: Jose Armando Orozco RN) piperacillin-tazobactam (Zosyn) 3.375 g in dextrose (iso) IV 50 mL 3.375 g, intravenous, Administer over 0.5 Hours, Every 6 hours, First dose on Mon09/13/24 at 2200, premix bag, Dosing of this medication varies based on severity of illness. Does this patient have sepsis or concern for sepsis (probable or documented infection plus systemic manifestations of infection)? No, Suspected Indication (Select all that apply): Cellulitis, Skin and Soft Tissue, Type of Therapy: Empiric, Indications: Cellulitis, Skin and Soft Tissue 0458 (New Bag - Provider: Carley Arevalo RN)0549 (Stopped - Provider: Carley Arevalo RN)1055 (New Bag - Provider: Jose Armando Orozco RN)1203 (Stopped - Provider: Jose Armando Orozco RN)1605 (New Bag - Provider: Jose Armando Orozco RN)1644 (Stopped - Provider: Zuleyma Sanchez RN)2150 (New Bag - Provider: Carley Arevalo RN)2235 (Stopped - Provider: Carley Arevalo RN) 0507 (New Bag - Provider: Carley Arevalo RN)0555 (Stopped - Provider: Carley Arevalo RN)1043 (New Bag - Provider: Jose Armando Orozco RN)1130 (Stopped - Provider: Zuleyma Sanchez RN)1632 (New Bag - Provider: Zuleyma Sanchez RN)1739 (Stopped - Provider: Zuleyma Sanchez RN) 0227 (New Bag - Provider: Carley Arevalo RN)0312 (Stopped - Provider: Carley Arevalo RN)0558 (New Bag - Provider: Carley Arevalo RN - Comment: pharmacy brought doses up late)0623 (Stopped - Provider: Carley Arevalo RN)0937 (New Bag - Provider: Ronald Adair RN)1009 (Stopped - Provider: Ronald Adair RN)1600 (Due)2200 (Due) polyethylene glycol (Glycolax, Miralax) packet 17 g 17 g, oral, Daily, First dose on Mon09/17/24 at 0900 0901 (Given - Provider: Ronald Adair RN) vancomycin (Vancocin) 750 mg in dextrose 5% IV 150 mL (CANCELED) 750 mg, intravenous, at 200 mL/hr, Administer over 45 Minutes, Every 12 hours, First dose on 09/14/24 at 1015, premix bag, Dosing of this medication varies based on severity of illness. Does this patient have sepsis or concern for sepsis (probable or documented infection plus systemic manifestations of infection)? No, Suspected Indication (Select all that apply): Cellulitis, Skin and Soft Tissue, Type of Therapy: Empiric, Indications: Cellulitis, Skin and Soft Tissue 1055 (New Bag - Provider: Jose Armando Orozco RN)1335 (Stopped - Provider: Jose Armando Orozco RN)2234 (New Bag - Provider: Carley Arevalo RN) 0003 (Stopped - Provider: Carley Arevalo RN)1129 (Not Given - Provider: Zuleyma Sanchez RN - Reason: See Provider Order) varenicline (Chantix) tablet 0.5 mg (COMPLETED)(Linked Group 1) 0.5 mg, oral, Daily, First dose on Mon09/15/24 at 1030, For 3 doses, Give 0.5 mg once daily on days 1-3, followed by 0.5 mg twice daily on days 4-7, and then 1 mg twice daily from day 8 through the end of 12 weeks of treatment. Ideally, begin therapy 1 week before target quit date. 1202 (Given - Provider: Jose Armando Orozco RN) 0826 (Given - Provider: Jose Armando Orozco RN) 0902 (Given - Provider: Ronald Adair RN) varenicline (Chantix) tablet 0.5 mg(Linked Group 1) 0.5 mg, oral, 2 times daily, First dose on Mon09/18/24 at 0900, For 4 days, Increased frequency on days 4-7, then increased dose to 1 mg twice daily from day 8 through the end of 12 weeks of treatment. varenicline (Chantix) tablet 1 mg(Linked Group 1) 1 mg, oral, 2 times daily, First dose on Mon09/22/24 at 0900, For 77 days, Increased dose of 1 mg twice daily from week 2 through end of 12 weeks of treatment. PRN Medication Order 09/15/2024 09/16/2024 09/17/2024 ketorolac (Toradol) injection 30 mg (CANCELED) 30 mg, intravenous, Every 6 hours PRN, pain moderate (4-6), first line, Starting on Mon09/13/24 at 2257, For 5 days 0612 (Given - Provider: Carley Arevalo RN) ketorolac (Toradol) injection 30 mg 30 mg, intravenous, Every 6 hours PRN, pain moderate (4-6), first line, pain severe (7-10), first line, Starting on 09/15/24 at 0956, For 85 hours, On hold since 09/15/2024 at 1017 until manually unheld 1017 (Held by provider - Provider: Shane Galeano MD - Reason: Other) nicotine polacrilex (Nicorette) gum 2 mg 2 mg, Mouth/Throat, Every 2 hour PRN, smoking cessation, Starting on 09/15/24 at 1022 2009 (Given - Provider: Carley Arevalo RN) 0826 (Given - Provider: Jose Armando Orozco, AMAN) ondansetron (Zofran) injection 4 mg(Linked Group 2) 4 mg, intravenous, Every 8 hours PRN, nausea/vomiting, first line, nausea, vomiting,, Starting on 09/16/24 at 1335, Give IV if patient is unable to take orally. When administering via IV Push, administer over 3-5 minutes. ondansetron ODT (Zofran-ODT) disintegrating tablet 4 mg(Linked Group 2) 4 mg, oral, Every 8 hours PRN, nausea/vomiting, first line, nausea, vomiting,, Starting on 09/16/24 at 1335, Patient should allow tablet to dissolve on tongue. Do not remove from blister pack until just before administering. oxyCODONE (Roxicodone) immediate release tablet 5 mg 5 mg, oral, Every 6 hours PRN, pain moderate (4-6), first line, PRN PRIOR TO DRESSING CHANGES, Starting on 09/15/24 at 1022, If ordered PRN for pain, nurse is permitted to administer this medication for higher pain scores based on patient preference? Yes 1242 (Given - Provider: Jose Armando Orozco RN - Comment: medicated prior to cressing change.)2201 (Given - Provider: Carley Arevalo, AMAN) 0506 (Given - Provider: Carley Arevalo, AMAN)1232 (Given - Provider: Jose Armando Orozco RN - Comment: given prior to dressing chnage.)2224 (Given - Provider: Carley Arevalo, AMAN) 1043 (Given - Provider: Ronald Adair RN) Linked Groups Order Group 1: varenicline (Chantix) tablet 0.5 mg (COMPLETED)Jump to med 0.5 mg, oral, Daily, First dose on 09/15/24 at 1030, For 3 doses, Give 0.5 mg once daily on days 1-3, followed by 0.5 mg twice daily on days 4-7, and then 1 mg twice daily from day 8 through the end of 12 weeks of treatment. Ideally, begin therapy 1 week before target quit date. Followed by varenicline (Chantix) tablet 0.5 mgJump to med 0.5 mg, oral, 2 times daily, First dose on Mon09/18/24 at 0900, For 4 days, Increased frequency on days 4-7, then increased dose to 1 mg twice daily from day 8 through the end of 12 weeks of treatment. Followed by varenicline (Chantix) tablet 1 mgJump to med 1 mg, oral, 2 times daily, First dose on Mon09/22/24 at 0900, For 77 days, Increased dose of 1 mg twice daily from week 2 through end of 12 weeks of treatment. Group 2: ondansetron ODT (Zofran-ODT) disintegrating tablet 4 mgJump to med 4 mg, oral, Every 8 hours PRN, nausea/vomiting, first line, nausea, vomiting,, Starting on Mon09/16/24 at 1335, Patient should allow tablet to dissolve on tongue. Do not remove from blister pack until just before administering. Or ondansetron (Zofran) injection 4 mgJump to med 4 mg, intravenous, Every 8 hours PRN, nausea/vomiting, first line, nausea, vomiting,, Starting on Mon09/16/24 at 1335, Give IV if patient is unable to take orally. When administering via IV Push, administer over 3-5 minutes. Scheduled Medication Order 09/15/2024 09/16/2024 09/17/2024 acetaminophen (Tylenol) tablet 975 mg 975 mg, oral, Every 8 hours, First dose (after last modification) on Mon09/13/24 at 2315, If ordered PRN for pain, nurse is permitted to administer this medication for higher pain scores based on patient preference? Yes 0618 (Given - Provider: Carley Arevalo RN)1416 (Given - Provider: Zuleyma Sanchez RN) 0531 (Not Given - Provider: Carley Arevalo RN - Reason: Patient/family refused)0658 (Given - Provider: Carley Arevalo RN)1632 (Given - Provider: Zuleyma Sanchez RN)2224 (Given - Provider: Carley Arevalo RN) 0902 (Given - Provider: Ronald Adair, AMAN)1515 (Due)2315 (Due) cetirizine (ZyrTEC) tablet 10 mg 10 mg, oral, Daily, First dose on 09/14/24 at 0900 0829 (Given - Provider: Jose Armando Orozco RN) 0826 (Given - Provider: Jose Armando Orozco RN) 0902 (Given - Provider: Ronald Adair RN) clindamycin (Cleocin T) 1 % lotion Topical, 2 times daily, First dose on 09/14/24 at 1315, Apply to left posterior thigh and buttocks. 1338 (Given - Provider: Zuleyma Sanchez RN)2150 (Given - Provider: Carley Arevalo RN) 1353 (Given - Provider: Zuleyma Sanchez RN)2226 (Given - Provider: Carley Arevalo RN) 0902 (Given - Provider: Ronald Adair RN)2100 (Due) enoxaparin (Lovenox) syringe 40 mg 40 mg, subcutaneous, Every 24 hours scheduled, First dose on Mon09/15/24 at 1600 1605 (Given - Provider: Jose Armando Orozco RN) 1632 (Given - Provider: Zuleyma Sanchez RN) 1600 (Due) oxyCODONE (Roxicodone) immediate release tablet 5 mg (COMPLETED) 5 mg, oral, Once, On Mon09/16/24 at 0730, For 1 dose, If ordered PRN for pain, nurse is permitted to administer this medication for higher pain scores based on patient preference? Yes 0834 (Given - Provider: Jose Armando Orozco RN) piperacillin-tazobactam (Zosyn) 3.375 g in dextrose (iso) IV 50 mL 3.375 g, intravenous, Administer over 0.5 Hours, Every 6 hours, First dose on Mon09/13/24 at 2200, premix bag, Dosing of this medication varies based on severity of illness. Does this patient have sepsis or concern for sepsis (probable or documented infection plus systemic manifestations of infection)? No, Suspected Indication (Select all that apply): Cellulitis, Skin and Soft Tissue, Type of Therapy: Empiric, Indications: Cellulitis, Skin and Soft Tissue 0458 (New Bag - Provider: Carley Arevalo RN)0549 (Stopped - Provider: Carley Arevalo RN)1055 (New Bag - Provider: Jose Armando Orozco RN)1203 (Stopped - Provider: Jose Armando Orozco RN)1605 (New Bag - Provider: Jose Armando Orozco RN)1644 (Stopped - Provider: Zuleyam Sanchez RN)2150 (New Bag - Provider: Carley Arevalo RN)2235 (Stopped - Provider: Carley Arevalo RN) 0507 (New Bag - Provider: Carley Arevalo RN)0555 (Stopped - Provider: Carley Arevalo RN)1043 (New Bag - Provider: Jose Armnado Orozco RN)1130 (Stopped - Provider: Zuleyma Sanchez RN)1632 (New Bag - Provider: Zuleyma Sanchez RN)1739 (Stopped - Provider: Zuleyma Sanchez RN) 0227 (New Bag - Provider: Carley Arevalo RN)0312 (Stopped - Provider: Carley Arevalo RN)0558 (New Bag - Provider: Carley Arevalo RN - Comment: pharmacy brought doses up late)0623 (Stopped - Provider: Carley Arevalo RN)0937 (New Bag - Provider: Ronald Adair RN)1009 (Stopped - Provider: Ronald Adair RN)1600 (Due)2200 (Due) polyethylene glycol (Glycolax, Miralax) packet 17 g 17 g, oral, Daily, First dose on Mon09/17/24 at 0900 0901 (Given - Provider: Ronald Adair RN) vancomycin (Vancocin) 750 mg in dextrose 5% IV 150 mL (CANCELED) 750 mg, intravenous, at 200 mL/hr, Administer over 45 Minutes, Every 12 hours, First dose on Mon09/14/24 at 1015, premix bag, Dosing of this medication varies based on severity of illness. Does this patient have sepsis or concern for sepsis (probable or documented infection plus systemic manifestations of infection)? No, Suspected Indication (Select all that apply): Cellulitis, Skin and Soft Tissue, Type of Therapy: Empiric, Indications: Cellulitis, Skin and Soft Tissue 1055 (New Bag - Provider: Jose Armando Orozco RN)1335 (Stopped - Provider: Jose Armando Orozco RN)2234 (New Bag - Provider: Carley Arevalo RN) 0003 (Stopped - Provider: Carley Arevalo RN)1129 (Not Given - Provider: Zuleyma Sanchez RN - Reason: See Provider Order) varenicline (Chantix) tablet 0.5 mg (COMPLETED)(Linked Group 1) 0.5 mg, oral, Daily, First dose on Mon09/15/24 at 1030, For 3 doses, Give 0.5 mg once daily on days 1-3, followed by 0.5 mg twice daily on days 4-7, and then 1 mg twice daily from day 8 through the end of 12 weeks of treatment. Ideally, begin therapy 1 week before target quit date. 1202 (Given - Provider: Jose Armando Orozco RN) 08 (Given - Provider: Jose Armando Orozco, RN) 09 (Given - Provider: Ronald Adair RN) varenicline (Chantix) tablet 0.5 mg(Linked Group 1) 0.5 mg, oral, 2 times daily, First dose on Mon09/18/24 at 0900, For 4 days, Increased frequency on days 4-7, then increased dose to 1 mg twice daily from day 8 through the end of 12 weeks of treatment. varenicline (Chantix) tablet 1 mg(Linked Group 1) 1 mg, oral, 2 times daily, First dose on Mon09/22/24 at 0900, For 77 days, Increased dose of 1 mg twice daily from week 2 through end of 12 weeks of treatment. PRN Medication Order 09/15/2024 09/16/2024 09/17/2024 ketorolac (Toradol) injection 30 mg (CANCELED) 30 mg, intravenous, Every 6 hours PRN, pain moderate (4-6), first line, Starting on Mon09/13/24 at 2257, For 5 days 0612 (Given - Provider: Carley Arevalo RN) ketorolac (Toradol) injection 30 mg 30 mg, intravenous, Every 6 hours PRN, pain moderate (4-6), first line, pain severe (7-10), first line, Starting on 09/15/24 at 0956, For 85 hours, On hold since 09/15/2024 at 1017 until manually unheld 1017 (Held by provider - Provider: Shane Galeano MD - Reason: Other) nicotine polacrilex (Nicorette) gum 2 mg 2 mg, Mouth/Throat, Every 2 hour PRN, smoking cessation, Starting on 09/15/24 at 1022 2009 (Given - Provider: Carley Arevalo RN) 08 (Given - Provider: Jose Armando Orozco RN) ondansetron (Zofran) injection 4 mg(Linked Group 2) 4 mg, intravenous, Every 8 hours PRN, nausea/vomiting, first line, nausea, vomiting,, Starting on 09/16/24 at 1335, Give IV if patient is unable to take orally. When administering via IV Push, administer over 3-5 minutes. ondansetron ODT (Zofran-ODT) disintegrating tablet 4 mg(Linked Group 2) 4 mg, oral, Every 8 hours PRN, nausea/vomiting, first line, nausea, vomiting,, Starting on 09/16/24 at 1335, Patient should allow tablet to dissolve on tongue. Do not remove from blister pack until just before administering. oxyCODONE (Roxicodone) immediate release tablet 5 mg 5 mg, oral, Every 6 hours PRN, pain moderate (4-6), first line, PRN PRIOR TO DRESSING CHANGES, Starting on 09/15/24 at 1022, If ordered PRN for pain, nurse is permitted to administer this medication for higher pain scores based on patient preference? Yes 1242 (Given - Provider: Jose Armando Orozco RN - Comment: medicated prior to cressing change.)2201 (Given - Provider: Carley Arevalo, AMAN) 0506 (Given - Provider: Carley Arevalo RN)1232 (Given - Provider: Jose Armando Orozco RN - Comment: given prior to dressing chnage.)2224 (Given - Provider: Carley Arevalo, AMAN) 1043 (Given - Provider: Ronald Adair RN) Linked Groups Order Group 1: varenicline (Chantix) tablet 0.5 mg (COMPLETED)Jump to med 0.5 mg, oral, Daily, First dose on 09/15/24 at 1030, For 3 doses, Give 0.5 mg once daily on days 1-3, followed by 0.5 mg twice daily on days 4-7, and then 1 mg twice daily from day 8 through the end of 12 weeks of treatment. Ideally, begin therapy 1 week before target quit date. Followed by varenicline (Chantix) tablet 0.5 mgJump to med 0.5 mg, oral, 2 times daily, First dose on Mon09/18/24 at 0900, For 4 days, Increased frequency on days 4-7, then increased dose to 1 mg twice daily from day 8 through the end of 12 weeks of treatment. Followed by varenicline (Chantix) tablet 1 mgJump to med 1 mg, oral, 2 times daily, First dose on Mon09/22/24 at 0900, For 77 days, Increased dose of 1 mg twice daily from week 2 through end of 12 weeks of treatment. Group 2: ondansetron ODT (Zofran-ODT) disintegrating tablet 4 mgJump to med 4 mg, oral, Every 8 hours PRN, nausea/vomiting, first line, nausea, vomiting,, Starting on 09/16/24 at 1335, Patient should allow tablet to dissolve on tongue. Do not remove from blister pack until just before administering. Or ondansetron (Zofran) injection 4 mgJump to med 4 mg, intravenous, Every 8 hours PRN, nausea/vomiting, first line, nausea, vomiting,, Starting on 09/16/24 at 1335, Give IV if patient is unable to take orally. When administering via IV Push, administer over 3-5 minutes. Scheduled Medication Order 10/21/2024 10/22/2024 10/23/2024 acetaminophen (Tylenol) tablet 975 mg 975 mg, oral, 3 times daily, First dose (after last modification) on Mon10/11/24 at 1155, If ordered PRN for pain, nurse is permitted to administer this medication for higher pain scores based on patient preference? Yes 0853 (Given - Provider: Palma Paul RN)1516 (Given - Provider: Palma Paul RN)2053 (Given - Provider: Ericka Perkins RN) 0930 (Given - Provider: Neva Gibbs RN)1430 (Given - Provider: Neva Gibbs RN)2114 (Given - Provider: Kathryn Araujo RN) 0948 (Given - Provider: Latricia Rm RN)1500 (Due)2100 (Due) ampicillin-sulbactam (Unasyn) 3 g in sodium chloride 0.9% IV 100 mL 3 g, intravenous, at 200 mL/hr, Administer over 30 Minutes, Every 6 hours, First dose on Mon10/19/24 at 0800, Mini-Bag Plus/ADD-[place] bag, Suspected Indication (Select all that apply): Cellulitis, Skin and Soft Tissue, Type of Therapy: Empiric, Indications: Cellulitis, Skin and Soft Tissue 0215 (New Bag - Provider: Ericka Perkins RN)0327 (Stopped - Provider: Ericka Perkins RN)0858 (New Bag - Provider: Palma Paul RN)1023 (Stopped - Provider: Palma Paul RN)1515 (New Bag - Provider: Palma Paul RN)1612 (Stopped - Provider: Palma Paul RN)2053 (New Bag - Provider: Ericka Perkins RN)2252 (Stopped - Provider: Ericka Perkins RN) 0159 (New Bag - Provider: Ericka Perkins RN)0240 (Stopped - Provider: Ericka Perkins RN)0900 (New Bag - Provider: Neva Gibbs RN)0946 (Stopped - Provider: Neva Gibbs RN)1430 (New Bag - Provider: Neva Gibbs RN)1445 (Stopped - Provider: Neva Gibbs RN)2114 (New Bag - Provider: Kathryn Araujo RN)2145 (Stopped - Provider: Kathryn Araujo RN) 0307 (New Bag - Provider: Kathryn Araujo RN)0339 (Stopped - Provider: Kathryn Araujo RN)1041 (New Bag - Provider: Latricia Rm RN)1130 (Stopped - Provider: Latricia Rm RN)1500 (Due - Provider: Dilan Dowd, PharmD)2100 (Due - Provider: Dilan Dowd, PharmD) calcium carbonate (Tums) chewable tablet 500 mg 500 mg, oral, Daily, First dose on Mon10/14/24 at 1700, Each 500 mg calcium carbonate tablet = 200 mg of elemental calcium. 0858 (Not Given - Provider: Palma Paul RN - Reason: Patient/family refused) 0938 (Not Given - Provider: Neva Gibbs RN - Reason: Patient/family refused) 0948 (Not Given - Provider: Latricia Rm RN - Reason: Patient/family refused) cetirizine (ZyrTEC) tablet 10 mg 10 mg, oral, Daily, First dose on Mon10/11/24 at 0900 0856 (Given - Provider: Palma Paul RN) 0930 (Given - Provider: Neva Gibbs RN) 0948 (Given - Provider: Latricia Rm RN) clindamycin (Cleocin T) 1 % gel Topical, 2 times daily, First dose on Mon10/11/24 at 0045, Apply to HS wounds 0857 (Given - Provider: Palma Paul RN)210 (Given - Provider: Ericka Perkins RN) 0900 (Given - Provider: Neva Gibbs RN)211 (Given - Provider: Kathryn Araujo RN) 0950 (Given - Provider: Latricia Rm, RN)2100 (Due) heparin (porcine) injection 5,000 Units 5,000 Units, subcutaneous, Every 8 hours scheduled, First dose on Mon10/11/24 at 1600 0502 (Given - Provider: Ericka Perkins RN)1345 (Given - Provider: Palma Paul RN)2252 (Given - Provider: Ericka Perkins RN) 0532 (Given - Provider: Ericka Perkins RN)1430 (Given - Provider: Neva Gibbs RN)2115 (Given - Provider: Kathryn Araujo RN) 0522 (Given - Provider: Kathryn Araujo RN)1400 (Due)2200 (Due) lidocaine (Xylocaine) 10 mg/mL (1 %) injection 5 mL 5 mL, infiltration, Once, On 10/19/24 at 0915, For 1 dose polyethylene glycol (Glycolax, Miralax) packet 17 g 17 g, oral, Daily, First dose on Mon10/12/24 at 0900 0859 (Not Given - Provider: Palma Paul RN - Reason: Patient/family refused) 0930 (Given - Provider: Neva Gibbs RN) 0949 (Not Given - Provider: Latricia Rm RN - Reason: Patient/family refused) sennosides-docusate sodium (Leda-Colace) 8.6-50 mg per tablet 1 tablet 1 tablet, oral, Nightly, First dose on Mon10/22/24 at 2100 2114 (Given - Provider: Kathryn Araujo RN) 2100 (Due) tiZANidine (Zanaflex) tablet 2 mg 2 mg, oral, 3 times daily, First dose on Mon10/11/24 at 1500 1345 (Given - Provider: Palma Paul RN)1800 (Given - Provider: Palma Paul RN)2053 (Given - Provider: Ericka Perkins RN) 0930 (Given - Provider: Neva Gibbs, AMAN)1500 (Not Given - Provider: Neva Gibbs RN - Reason: Medication not available)2113 (Given - Provider: Kathryn Araujo RN) 0948 (Given - Provider: Latricia Rm, RN)1500 (Due)2100 (Due) varenicline tartrate (Chantix) tablet 0.5 mg (COMPLETED)(Linked Group 1) 0.5 mg, oral, Daily, First dose on Mon10/19/24 at 1415, For 3 doses, Give 0.5 mg once daily on days 1-3, followed by 0.5 mg twice daily on days 4-7, and then 1 mg twice daily from day 8 through the end of 12 weeks of treatment. Ideally, begin therapy 1 week before target quit date. 853 (Given - Provider: Palma Paul RN) varenicline tartrate (Chantix) tablet 0.5 mg(Linked Group 1) 0.5 mg, oral, 2 times daily, First dose on Mon10/22/24 at 0900, For 4 days, Increased frequency on days 4-7, then increased dose to 1 mg twice daily from day 8 through the end of 12 weeks of treatment. 30 (Given - Provider: Neva Gibbs RN)2113 (Given - Provider: Kathryn Araujo, AMAN) 0948 (Given - Provider: Latricia Rm, AMAN)2100 (Due) varenicline tartrate (Chantix) tablet 1 mg(Linked Group 1) 1 mg, oral, 2 times daily, First dose on Mon10/26/24 at 0900, For 77 days, Increased dose of 1 mg twice daily from week 2 through end of 12 weeks of treatment. PRN Medication Order 10/21/2024 10/22/2024 10/23/2024 alteplase (Cathflo Activase) injection 2 mg 2 mg, intra-catheter, As needed, line care, Starting on 10/19/24 at 1134, Via PICC Line Removed by: Aspiration Inject into partial/totally occluded catheter lumen for total of 30 to 120 minute dwell time; assess patency at 30 minutes and if not patent, dwell for additional 90 minutes. If still not patent, repeat alteplase 2 mg injected into thrombotic partial or totally occluded lumen for a total of 120 minute dwell time; assess patency at 30 minutes and if not patent, dwell for 90 minutes. If still not patent, notify provider. Dilute each 2 mg vial with 2.2 mL sterile water to give 1 mg/mL final concentration. Swirl gently to mix; do not shake. HYDROmorphone (Dilaudid) injection 0.4 mg 0.4 mg, intravenous, Every 4 hours PRN, pain breakthrough, Starting on Mon10/15/24 at 1158, To be given only before dressing changes. 1347 (Given - Provider: Palma Paul RN)1847 (Given - Provider: Palma Paul RN) 0159 (Given - Provider: Ericka Perkins RN)1720 (Given - Provider: Neva Gibbs RN - Comment: Dressing Change) 1040 (Given - Provider: Latricia Rm RN) oxyCODONE (Roxicodone) immediate release tablet 10 mg (CANCELED) 10 mg, oral, Every 6 hours PRN, pain severe (7-10), first line, Starting on Mon10/15/24 at 1158, If ordered PRN for pain, nurse is permitted to administer this medication for higher pain scores based on patient preference? Yes 0215 (Given - Provider: Ericka Perkins RN)0856 (Given - Provider: Palma Paul RN)1940 (Given - Provider: Palma Paul RN) 0532 (Given - Provider: Ericka Perkins RN) oxyCODONE (Roxicodone) immediate release tablet 10 mg 10 mg, oral, Every 4 hours PRN, pain severe (7-10), first line, Starting on Mon10/22/24 at 0849, If ordered PRN for pain, nurse is permitted to administer this medication for higher pain scores based on patient preference? Yes 0930 (Given - Provider: Neva Gibbs RN)1430 (Given - Provider: Neva Gibbs RN)2216 (Given - Provider: Kathryn Araujo RN) 0314 (Given - Provider: Kathryn Araujo RN)0737 (Given - Provider: Latricia Rm RN)1232 (Given - Provider: Latricia Rm RN) oxyCODONE (Roxicodone) immediate release tablet 5 mg 5 mg, oral, Every 4 hours PRN, pain moderate (4-6), first line, Starting on Mon10/15/24 at 1157, If ordered PRN for pain, nurse is permitted to administer this medication for higher pain scores based on patient preference? Yes Linked Groups Order Group 1: varenicline tartrate (Chantix) tablet 0.5 mg (COMPLETED)Jump to med 0.5 mg, oral, Daily, First dose on Mon10/19/24 at 1415, For 3 doses, Give 0.5 mg once daily on days 1-3, followed by 0.5 mg twice daily on days 4-7, and then 1 mg twice daily from day 8 through the end of 12 weeks of treatment. Ideally, begin therapy 1 week before target quit date. Followed by varenicline tartrate (Chantix) tablet 0.5 mgJump to med 0.5 mg, oral, 2 times daily, First dose on Mon10/22/24 at 0900, For 4 days, Increased frequency on days 4-7, then increased dose to 1 mg twice daily from day 8 through the end of 12 weeks of treatment. Followed by varenicline tartrate (Chantix) tablet 1 mgJump to med 1 mg, oral, 2 times daily, First dose on Mon10/26/24 at 0900, For 77 days, Increased dose of 1 mg twice daily from week 2 through end of 12 weeks of treatment. Scheduled Medication Order 11/08/2024 11/09/2024 11/10/2024 acetaminophen (Tylenol) tablet 1,000 mg (COMPLETED) 1,000 mg, Oral, Once, On Mon11/08/24 at 1515, For 1 dose, Maximum dose of acetaminophen is 4000 mg from all sources in 24 hours. 1526 (Given - Provider: Allison Treadwell RN) acetaminophen (Tylenol) tablet 1,000 mg 1,000 mg, Oral, Every 8 hours scheduled (3 times per day), First dose on Mon11/08/24 at 2035, Maximum dose of acetaminophen is 4000 mg from all sources in 24 hours. 2104 (Given - Provider: Allison Treadwell RN) 0511 (Given - Provider: Jamison Maldonado RN)1347 (Given - Provider: Sabrina Ricks, AMAN)210 (Given - Provider: Chuck Cisneros RN) enoxaparin (Lovenox) syringe 40 mg 40 mg, SubCUTAneous, Every 24 hours scheduled (Daily), First dose on Mon11/08/24 at 2030, Indication of Use: Prophylaxis-DVT/PE, Indications: Prophylaxis of Venous Thromboembolism 2103 (Given - Provider: Allison Treadwell RN) 0900 (Not Given - Provider: María Yang RN - Reason: Other - Comment: given at 2100, asked to adjust times) fentaNYL (Sublimaze) injection 50 mcg (COMPLETED) 50 mcg, IntraVENous, Once, On Mon11/08/24 at 1515, For 1 dose, If oral and IV narcotics ordered, use oral first and only use IV if oral is ineffective or cannot take oral. Do Not give oral and IV within 1 hour of each other unless specifically ordered. 152 (Given - Provider: Allison Treadwell RN) ondansetron (Zofran) injection 4 mg (COMPLETED) 4 mg, IntraVENous, Once, On Mon11/08/24 at 1515, For 1 dose 152 (Given - Provider: Allison Treadwell RN) oxyCODONE (Roxicodone) immediate release tablet 5 mg (COMPLETED) 5 mg, Oral, Once, On Mon11/08/24 at 1720, For 1 dose 2103 (Given - Provider: Allison Treadwell RN - Comment: bp and map too low earlier) piperacillin-tazobactam (Zosyn) IVPB 3,375 mg 3,375 mg, IntraVENous, at 12.5 mL/hr, Administer over 4 Hours, Every 8 hours, First dose on Mon11/08/24 at 2200, premix bag, Suspected Indication (Select all that apply): Skin and Soft Tissue Infection 2104 (New Bag - Provider: Allison Treadwell RN) 0232 (Stopped - Provider: Allison Treadwell RN)0704 (New Bag - Provider: Jamison Maldonado, AMAN)1104 (Stopped - Provider: María Yang RN)1440 (New Bag - Provider: Macailia Trey, RN)1840 (Stopped - Provider: María Yang RN)2107 (New Bag - Provider: Chuck Cisneros, AMAN) 0107 (Stopped - Provider: Chuck Cisneros RN) piperacillin-tazobactam (Zosyn) IVPB 4,500 mg (COMPLETED) 4,500 mg, IntraVENous, at 200 mL/hr, Administer over 0.5 Hours, Once, On Mon11/08/24 at 1600, For 1 dose, premix bag, Suspected Indication (Select all that apply): Skin and Soft Tissue Infection 1615 (New Bag - Provider: Allison Treadwell RN)1705 (Stopped - Provider: Allison Treadwell RN) polyethylene glycol (PEG) 3350 (Miralax) packet 17 g 17 g, Oral, Daily, First dose (after last modification) on Mon11/08/24 at 2030, 1st line for treatment of constipation - give scheduled if no bowel movement in past 24 hours. 2030 (Not Given - Provider: Allison Treadwell RN - Reason: Patient/family refused) 0900 (Not Given - Provider: María Yang RN - Reason: NPO) sodium chloride 0.9 % bolus 1,000 mL (COMPLETED) 1,000 mL, IntraVENous, at 1,000 mL/hr, Administer over 1 Hours, Once, On Mon11/08/24 at 1515, For 1 dose 1526 (New Bag - Provider: Allison Treadwell RN)1621 (Stopped - Provider: Allison Treadwell RN) sodium chloride 0.9 % bolus 1,000 mL (COMPLETED) 1,000 mL, IntraVENous, at 1,000 mL/hr, Administer over 1 Hours, Once, On Mon11/08/24 at 1720, For 1 dose 1723 (New Bag - Provider: Allison Treadwell RN)1823 (Stopped - Provider: Mary Mackey, AMAN) sodium chloride 0.9 % bolus 1,000 mL (COMPLETED) 1,000 mL, IntraVENous, at 1,000 mL/hr, Administer over 1 Hours, Once, On Mon11/08/24 at 1805, For 1 dose 1808 (New Bag - Provider: Allison Treadwell RN)1908 (Stopped - Provider: Mary Mackey RN) vancomycin (Vancocin) 1,000 mg in sodium chloride 0.9 % 250 mL IVPB 1,000 mg, IntraVENous, at 166.7 mL/hr, Administer over 90 Minutes, Every 12 hours, First dose on Mon11/09/24 at 0500, ADD-[place] bag, Suspected Indication (Select all that apply): Skin and Soft Tissue Infection 0512 (New Bag - Provider: Jamison Maldonado, AMAN)0642 (Stopped - Provider: María Yang, RN)1848 (New Bag - Provider: María Yang RN)2018 (Stopped - Provider: Chuck Cisneros, AMAN) vancomycin in NS (Vancocin) IVPB 2,000 mg (COMPLETED) 2,000 mg (rounded from 2,080 mg = 20 mg/kg 104 kg), IntraVENous, at 250 mL/hr, Administer over 120 Minutes, Once, On Mon11/08/24 at 1555, For 1 dose, premix bag, Suspected Indication (Select all that apply): Skin and Soft Tissue Infection 1701 (New Bag - Provider: Allison Treadwell, AMAN)2101 (Stopped - Provider: Allison Treadwell RN) PRN Medication Order 11/08/2024 11/09/2024 11/10/2024 iopamidol (Isovue-370) 76 % injection 75 mL (COMPLETED) 75 mL, IntraVENous, IMG once PRN, contrast, Starting on Mon11/08/24 at 1643, For 1 dose 1643 (Given - Provider: Nilesh Snowden, RT (R)) melatonin tablet 3 mg 3 mg, Oral, Nightly PRN, sleep, Starting on Mon11/08/24 at 2026 naloxone (Narcan) injection 0.4 mg 0.4 mg, IntraVENous, PRN, opioid reversal, Starting on Mon11/08/24 at 2027, For oversedation/difficult to rouse, pinpoint pupils, RR < 8; notify primary team carbonating stone cleaner if used ondansetron (Zofran) injection 4 mg(Linked Group 1) 4 mg, IntraVENous, Every 6 hours PRN, nausea, vomiting, Starting on Mon11/08/24 at 2026, 1st Line. Give IV if patient is unable to take orally. If inadequate response within 60 minutes, proceed to next-line agent or contact provider if no further options ordered. ondansetron ODT (Zofran-ODT) disintegrating tablet 4 mg(Linked Group 1) 4 mg, Oral, Every 8 hours PRN, nausea, vomiting, Starting on Mon11/08/24 at 2026, Line. If inadequate response within 60 minutes, proceed to next-line agent or contact provider if no further options ordered. Patient should allow tablet to dissolve on tongue. Do not remove from blister pack until just before administering. oxyCODONE (Roxicodone) immediate release tablet 2.5 mg(Linked Group 2) 2.5 mg, Oral, Every 4 hours PRN, moderate pain (4-6), Starting on Mon11/08/24 at 2027 0237 (See Alternative - Provider: Allison Treadwell RN)0910 (See Alternative - Provider: María Yang, RN)1848 (See Alternative - Provider: María Yang, RN) 0156 (See Alternative - Provider: Chuck Cisneros, RN) oxyCODONE (Roxicodone) immediate release tablet 5 mg(Linked Group 2) 5 mg, Oral, Every 4 hours PRN, severe pain (7-10), Starting on Mon11/08/24 at 2027 0237 (Given - Provider: Allison Treadwell, AMAN)0910 (Given - Provider: María Yang, RN)1848 (Given - Provider: María Yang, RN) 0156 (Given - Provider: Chuck Cisneros, RN) Linked Groups Order Group 1: ondansetron ODT (Zofran-ODT) disintegrating tablet 4 mgJump to med 4 mg, Oral, Every 8 hours PRN, nausea, vomiting, Starting on Mon11/08/24 at 2026, Line. If inadequate response within 60 minutes, proceed to next-line agent or contact provider if no further options ordered. Patient should allow tablet to dissolve on tongue. Do not remove from blister pack until just before administering. Or ondansetron (Zofran) injection 4 mgJump to med 4 mg, IntraVENous, Every 6 hours PRN, nausea, vomiting, Starting on Mon11/08/24 at 2026, 1st Line. Give IV if patient is unable to take orally. If inadequate response within 60 minutes, proceed to next-line agent or contact provider if no further options ordered. Group 2: oxyCODONE (Roxicodone) immediate release tablet 2.5 mgJump to med 2.5 mg, Oral, Every 4 hours PRN, moderate pain (4-6), Starting on Mon11/08/24 at 2027 Or oxyCODONE (Roxicodone) immediate release tablet 5 mgJump to med 5 mg, Oral, Every 4 hours PRN, severe pain (7-10), Starting on Mon11/08/24 at 2027 Scheduled Medication Order 11/25/2024 11/26/2024 11/27/2024 acetaminophen (Tylenol) tablet 975 mg 975 mg (rounded from 1,000 mg), oral, 3 times daily, First dose (after last modification) on Mon11/10/24 at 0900 0929 (Given - Provider: Elsy Diaz RN)1527 (Given - Provider: Pearl Grimaldo RN)2004 (Not Given - Provider: Ericka Mary RN - Reason: Patient/family refused) 0918 (Given - Provider: Tammy Otoole LPN)1537 (Given - Provider: Tammy Otoole LPN)203 (Given - Provider: Lena Ambriz RN) 0906 (Given - Provider: Elsy Diaz RN)1601 (Given - Provider: Elsy Diaz RN)2100 (Due) chlorhexidine (Hibiclens) 4 % liquid Topical, 2 times daily, First dose on Mon11/11/24 at 1030, Apply to affected area twice daily 0035 (Not Given - Provider: Fadia Goldsmith RN - Reason: Patient/family refused)1215 (Not Given - Provider: Elsy Diaz RN - Reason: Patient/family refused) 0111 (Not Given - Provider: Ericka Mary RN - Reason: Patient/family refused)1006 (Not Given - Provider: Dani Serrato RN - Reason: Patient/family refused)203 (Given - Provider: Lena Ambriz RN) 0907 (Not Given - Provider: Elsy Diaz RN - Reason: Patient/family refused - Comment: using vashe wound cleanser instead)2100 (Due) clindamycin (Cleocin T) 1 % gel Topical, 2 times daily, First dose on Mon11/10/24 at 0900, Apply to Wound around L buttock 0035 (Given - Provider: Fadia Goldsmith RN - Comment: 12 hours from last dressing change per nursing report)1341 (Given - Provider: Elsy Diaz RN) 0111 (Given - Provider: Ericka Mary RN - Comment: workflow)1006 (Given - Provider: Dani Serrato, RN)2036 (Given - Provider: Lena Ambriz RN) 1057 (Given - Provider: Elsy Diaz RN)2100 (Due) enoxaparin (Lovenox) syringe 40 mg 40 mg, subcutaneous, Every 24 hours, First dose (after last modification) on Mon11/13/24 at 1245, Indications: deep vein thrombosis prevention 1220 (Given - Provider: Elsy Diaz RN) 1150 (Given - Provider: Tammy Otoole LPN) 1222 (Given - Provider: Elsy Diaz RN) fentaNYL (Duragesic) 75 mcg/hr patch 1 patch 1 patch, transdermal, Administer over 72 Hours, Every 72 hours, First dose on Mon11/25/24 at 1200, Do not cut patch. Rotate site with each application to intact non-irritated upper arm, chest, back, or flank. Press firmly in place with palm of hand for 30 seconds, ensuring contact especially at the edges. Do not expose to heat sources. If patch begins to pull away, may apply first aid tape to edges, or overlay with transparent adhesive film if necessary. When remove patch, fold adhesive side of patch to itself before disposing per policy. Wash hands immediately after handling patch. 1700 (Medication Applied - Provider: Elsy Diaz RN) folic acid (Folvite) tablet 1 mg 1 mg, oral, Daily, First dose (after last modification) on Mon11/16/24 at 0900 0930 (Given - Provider: Elsy Diaz RN) 0919 (Given - Provider: Tammy Otoole LPN) 0906 (Given - Provider: Elsy Diaz RN) gabapentin (Neurontin) capsule 300 mg 300 mg, oral, Nightly, First dose on Key 11/21/24 at 2100, Capsules may be opened and sprinkled on food (eg, applesauce, orange juice, pudding 2001 (Given - Provider: Ericka Mary RN) 2036 (Given - Provider: Lena Ambriz RN) 2099 (Due) lactulose 20 gram/30 mL oral solution 20 g 20 g, oral, 3 times daily, First dose (after last modification) on Mon11/22/24 at 2100, CONTRAINDICATED IN LIVER TRANSPLANT PATIENTS IN POST-OP PHASE OF CARE 1213 (Not Given - Provider: Elsy Diaz RN - Reason: Patient/family refused)1530 (Not Given - Provider: Pearl Grimaldo RN - Reason: Patient/family refused)2003 (Not Given - Provider: Ericka Mary RN - Reason: Patient/family refused) 0200 (Given - Provider: Ericka Mary RN)0918 (Given - Provider: Tammy Otoole LPN)153 (Given - Provider: Tammy Otoole LPN)2036 (Given - Provider: Lena Ambriz RN) 0907 (Not Given - Provider: Elsy Diaz RN - Reason: Patient/family refused)1607 (Not Given - Provider: Elsy Diaz RN - Reason: Patient/family refused)2099 (Due) melatonin tablet 3 mg 3 mg, oral, Nightly, First dose (after last modification) on Mon11/10/24 at 2100 2000 (Given - Provider: Ericka Mary RN) 2036 (Given - Provider: Lena Ambriz RN) 2100 (Due) multivitamin with minerals 1 tablet 1 tablet, oral, Daily, First dose on Mon11/18/24 at 1700 0930 (Given - Provider: Elsy Diaz RN) 0919 (Given - Provider: Tammy Otoole LPN) 0906 (Given - Provider: Elsy Diaz RN) piperacillin-tazobactam (Zosyn) 3.375 g in dextrose (iso) IV 50 mL 3.375 g, intravenous, Administer over 0.5 Hours, Every 6 hours, First dose on Mon11/22/24 at 1230, Please start AFTER second blood culture was obtained premix bag, Dosing of this medication varies based on severity of illness. Does this patient have sepsis or concern for sepsis (probable or documented infection plus systemic manifestations of infection)? No, Suspected Indication (Select all that apply): Cellulitis, Skin and Soft Tissue, Indications: Cellulitis, Skin and Soft Tissue 0034 (New Bag - Provider: Fadia Goldsmith RN - Comment: q6h)0113 (Stopped - Provider: Fadia Goldsmith RN)0610 (New Bag - Provider: Fadia Goldsmith RN)0652 (Stopped - Provider: Fadia Goldsmith RN)1221 (New Bag - Provider: Elsy Diaz RN)1246 (Stopped - Provider: Elsy Diaz RN)1811 (New Bag - Provider: Elsy Diaz RN)1846 (Stopped - Provider: Elsy Diaz RN)2326 (New Bag - Provider: Ericka Mary RN) 0111 (Stopped - Provider: Ericka Mary RN)0449 (New Bag - Provider: Ericka Mary RN)0539 (Stopped - Provider: Ericka Mary RN)1008 (New Bag - Provider: Dani Serrato RN)1114 (Stopped - Provider: Tammy Otoole LPN)1734 (New Bag - Provider: Tammy Otoole LPN)1903 (Stopped - Provider: Dani Serrato RN)2334 (New Bag - Provider: Lena Ambriz RN) 0008 (Stopped - Provider: Lena Ambriz RN)0455 (New Bag - Provider: Lena Ambriz RN)0533 (Stopped - Provider: Lena Ambriz RN)1225 (New Bag - Provider: Elsy Diaz RN)1317 (Stopped - Provider: Elsy Diaz RN)1700 (Due - Provider: Cristi Reynoso, PharmD)2300 (Due - Provider: Cristi Reynoso, PharmD) polyethylene glycol (Glycolax, Miralax) packet 17 g 17 g, oral, 2 times daily, First dose (after last modification) on 11/10/24 at 0900 1217 (Given - Provider: Elsy Diaz RN)2003 (Not Given - Provider: Ericka Mary RN - Reason: Patient/family refused) 09 (Given - Provider: Tammy Otoole LPN)2041 (Not Given - Provider: Lena Ambriz RN - Reason: Patient/family refused - Comment: patient refused) 906 (Not Given - Provider: Elsy Diaz RN - Reason: Patient/family refused)2100 (Due) sennosides-docusate sodium (Leda-Colace) 8.6-50 mg per tablet 2 tablet 2 tablet, oral, 2 times daily, First dose on 11/10/24 at 0900 0930 (Given - Provider: Elsy Diaz RN)2003 (Not Given - Provider: Ericka Mary RN - Reason: Patient/family refused) 918 (Given - Provider: Tammy Otoole LPN)2040 (Given - Provider: Lena Ambriz RN) 905 (Given - Provider: Elsy Diaz RN)2100 (Due) varenicline tartrate (Chantix) tablet 1 mg 1 mg, oral, 2 times daily, First dose on 11/10/24 at 0900, Give with meals and with a full glass of water. 09 (Given - Provider: Elsy Diaz RN)2002 (Given - Provider: Ericka Mary RN) 918 (Given - Provider: Tammy Otoole LPN)2037 (Given - Provider: Lena Ambriz RN) 09 (Given - Provider: Elsy Diaz RN)2100 (Due) PRN Medication Order 11/25/2024 11/26/2024 11/27/2024 HYDROmorphone (Dilaudid) injection 1 mg 1 mg, intravenous, Every 2 hour PRN, pain breakthrough, Starting on Mon11/19/24 at 1314 0608 (Given - Provider: Fadia Goldsmith RN)1340 (Given - Provider: Elsy Diaz RN)1959 (Given - Provider: Ericka Mary RN) 0454 (Given - Provider: Ericka Mary RN)0953 (Given - Provider: Dani Serrato RN)2333 (Given - Provider: Lena Ambriz RN) 0916 (Given - Provider: Elsy Diaz RN)1602 (Given - Provider: Elsy Diaz RN) naloxone (Narcan) injection 0.2 mg 0.2 mg, intravenous, As needed, opioid reversal, Starting on 11/10/24 at 0410 ondansetron (Zofran) injection 8 mg 8 mg, intravenous, Every 8 hours PRN, nausea/vomiting, first line, Starting on 11/20/24 at 1805, When administering via IV Push, administer over 3-5 minutes. 1017 (Given - Provider: Dani Serrato, AMAN) oxyCODONE (Roxicodone) immediate release tablet 15 mg (CANCELED) 15 mg, oral, Every 3 hours PRN, pain severe (7-10), first line, Starting on Key 11/21/24 at 1622, If ordered PRN for pain, nurse is permitted to administer this medication for higher pain scores based on patient preference? Yes 0107 (Given - Provider: Fadia Goldsmith RN)0358 (Given - Provider: Nithya Farnsworth RN)0929 (Given - Provider: Elsy Diaz, AMAN) oxyCODONE (Roxicodone) immediate release tablet 20 mg 20 mg, oral, Every 3 hours PRN, pain severe (7-10), first line, pain moderate (4-6), first line, Starting on 11/25/24 at 1407, If ordered PRN for pain, nurse is permitted to administer this medication for higher pain scores based on patient preference? Yes 1527 (Given - Provider: Pearl Grimaldo RN) 0040 (Given - Provider: Ericka Mary RN)0702 (Given - Provider: Ericka Mary RN)1458 (Given - Provider: Dani Serrato RN)2032 (Given - Provider: Lena Ambriz RN) 0330 (Given - Provider: Lena Ambriz RN)0714 (Given - Provider: Lena Ambriz RN)1222 (Given - Provider: Elsy Diaz, AMAN) prochlorperazine (Compazine) injection 10 mg 10 mg, intravenous, Every 6 hours PRN, nausea/vomiting, first line, nausea/vomiting, second line, Starting on 11/20/24 at 1805 Scheduled Medication Order 12/05/2024 12/06/2024 12/07/2024 enoxaparin (Lovenox) syringe 40 mg 40 mg, SubCUTAneous, Every 24 hours scheduled (Daily), First dose on Mon12/07/24 at 0900, Indication of Use: Prophylaxis-DVT/PE, Indications: Prophylaxis of Venous Thromboembolism 927 (Given - Provid er: Margarita Stevens RN) fentaNYL (Sublimaze) injection 25 mcg (COMPLETED) 25 mcg, IntraVENous, Once, On Mon12/06/24 at 1505, For 1 dose, If oral and injectable narcotics ordered, use oral first and only use injectable if oral is ineffective or cannot take oral. Do Not give oral and injectable within 1 hour of each other unless specifically ordered. 1504 (Given - Provider: Boris Maire RN) fentaNYL (Sublimaze) injection 50 mcg (COMPLETED) 50 mcg, IntraVENous, Once, On Mon12/06/24 at 1645, For 1 dose, If oral and injectable narcotics ordered, use oral first and only use injectable if oral is ineffective or cannot take oral. Do Not give oral and injectable within 1 hour of each other unless specifically ordered. 1647 (Given - Provider: Boris Marie RN) fentaNYL (Sublimaze) injection 50 mcg (COMPLETED) 50 mcg, IntraVENous, Once, On Mon12/06/24 at 2305, For 1 dose, If oral and injectable narcotics ordered, use oral first and only use injectable if oral is ineffective or cannot take oral. Do Not give oral and injectable within 1 hour of each other unless specifically ordered. 2305 (Given - Provider: Janell Underwood RN) influenza vaccine tiss-cult subunt (Flucelvax) STANDARD-DOSE injection 0.5 mL 0.5 mL, IntraMUSCular, Once, On Mon12/08/24 at 0900, For 1 dose ketorolac (Toradol) injection 15 mg (COMPLETED) 15 mg, IntraVENous, Once, On Mon12/06/24 at 2325, For 1 dose 0038 (Given - Provid er: Lesley Birmingham RN) ketorolac (Toradol) injection 15 mg (COMPLETED) 15 mg, IntraVENous, Once, On Mon12/07/24 at 0505, For 1 dose 0514 (Given - Provid er: Lesley Birmingham RN) ketorolac (Toradol) injection 30 mg (COMPLETED) 30 mg, IntraVENous, Once, On Mon12/06/24 at 1840, For 1 dose 1843 (Given - Provider: Boris Marie RN) ketorolac (Toradol) injection 30 mg (COMPLETED) 30 mg, IntraVENous, Once, On 12/07/24 at 1210, For 1 dose 1235 (Given - Provid er: Josie Townsend RN) ondansetron (Zofran) injection 4 mg (COMPLETED) 4 mg, IntraVENous, Once, On 12/07/24 at 0245, For 1 dose 0256 (Given - Provid er: Lesley Birmingham RN) piperacillin-tazobactam (Zosyn) IVPB 4,500 mg (COMPLETED) 4,500 mg, IntraVENous, at 200 mL/hr, Administer over 0.5 Hours, Once, On Mon12/06/24 at 1345, For 1 dose, premix bag, Suspected Indication (Select all that apply): Skin and Soft Tissue Infection 1403 (New Bag - Provider: Boris Marie RN)1433 (Stopped - Provider: Boris Marie RN) piperacillin-tazobactam (Zosyn) IVPB 4,500 mg (CANCELED) 4,500 mg, IntraVENous, at 33.3 mL/hr, Administer over 3 Hours, Every 6 hours, First dose on Mon12/07/24 at 0605, Dosage or interval has been adjusted per P&T Renal Dosing policy. premix bag, Suspected Indication (Select all that apply): Skin and Soft Tissue Infection 0719 (New Bag - Provider: Lesley Birmingham RN)1019 (Stopped - Provider: Josie Townsend RN) piperacillin-tazobactam (Zosyn) IVPB 4,500 mg 4,500 mg, IntraVENous, at 200 mL/hr, Administer over 0.5 Hours, Every 6 hours, First dose (after last modification) on 12/07/24 at 1300, Dosage or interval has been adjusted per [facility] Dosing policy. premix bag, Suspected Indication (Select all that apply): Skin and Soft Tissue Infection 1238 (New Bag - Provider: Josie Townsend RN)1308 (Stopped - Provider: Josie Townsend RN) sodium chloride 0.9 % bolus 1,000 mL (COMPLETED) 1,000 mL, IntraVENous, at 1,000 mL/hr, Administer over 1 Hours, Once, On Mon12/06/24 at 1220, For 1 dose 1223 (New Bag - Provider: Toya Madera RN)1323 (Stopped - Provider: Boris Marie RN) sodium chloride 0.9 % bolus 1,000 mL (COMPLETED) 1,000 mL, IntraVENous, at 1,000 mL/hr, Administer over 1 Hours, Once, On Mon12/06/24 at 1930, For 1 dose 1956 (New Bag - Provider: Lesley Birmingham RN)2254 (Stopped - Provider: Lesley Birmingham RN) vancomycin (Vancocin) 1750 mg in NS 500 mL IVPB (premix) (COMPLETED) 1,750 mg (rounded from 1,788 mg = 20 mg/kg 89.4 kg), IntraVENous, at 250 mL/hr, Administer over 120 Minutes, Once, On Mon12/06/24 at 1400, For 1 dose, premix bag, Suspected Indication (Select all that apply): Skin and Soft Tissue Infection 1438 (New Bag - Provider: Boris Marie RN)1726 (Stopped - Provider: Kim Wilder RN) vancomycin IVPB 1250 mg in 250 mL NS (premix) 1,250 mg, IntraVENous, at 166.7 mL/hr, Administer over 90 Minutes, Every 12 hours, First dose on Mon12/07/24 at 0630, premix bag, Suspected Indication (Select all that apply): Skin and Soft Tissue Infection 0630 (Not Given - Provider: Margarita Stevens RN - Reason: Other - Comment: not given by weight shifter - asked pharmacy to retime)1056 (New Bag - Provider: Josie Townsend RN)1226 (Stopped - Provider: Josie Townsend RN) PRN Medication Order 12/05/2024 12/06/2024 12/07/2024 acetaminophen (Tylenol) suppository 650 mg(Linked Group 1) 650 mg, Rectal, Every 6 hours PRN, fever, For temp greater than 100.4 F (38 C), Starting on 12/07/24 at 0556, Administer if oral route cannot be used. Maximum dose of acetaminophen is 4000 mg from all sources in 24 hours. acetaminophen (Tylenol) tablet 650 mg(Linked Group 1) 650 mg, Oral, Every 6 hours PRN, mild pain (1-3), fever, For temp greater than 100.4 F (38 C), Starting on 12/07/24 at 0556, Maximum dose of acetaminophen is 4000 mg from all sources in 24 hours. iopamidol (Isovue-370) 76 % injection 75 mL (COMPLETED) 75 mL, IntraVENous, IMG once PRN, contrast, Starting on Mon12/06/24 at 1246, For 1 dose 1249 (Given - Provider: Janny Christianson) naloxone (Narcan) injection 0.4 mg 0.4 mg, IntraVENous, Every 5 min PRN, opioid reversal, respiratory depression, Starting on 12/07/24 at 0556, +++ For RR <10, pinpoint pupils, over sedation for opioid reversal - MUST notify carbonating stone cleaner provider immediately after first dose, may give IM or SQ if no IV access +++ ondansetron (Zofran) injection 4 mg(Linked Group 2) 4 mg, IntraVENous, Every 6 hours PRN, nausea, vomiting, Starting on 12/07/24 at 0556, 1st Line. Give IV if patient is unable to take orally. If inadequate response within 60 minutes, proceed to next-line agent or contact provider if no further options ordered. ondansetron ODT (Zofran-ODT) disintegrating tablet 4 mg(Linked Group 2) 4 mg, Oral, Every 8 hours PRN, nausea, vomiting, Starting on 12/07/24 at 0556, 1st Line. If inadequate response within 60 minutes, proceed to next-line agent or contact provider if no further options ordered. Patient should allow tablet to dissolve on tongue. Do not remove from blister pack until just before administering. oxyCODONE (Roxicodone) immediate release tablet 10 mg 10 mg, Oral, Every 4 hours PRN, severe pain (7-10), moderate pain (4-6), Starting on 12/07/24 at 1206 oxyCODONE (Roxicodone) immediate release tablet 5 mg (CANCELED) 5 mg, Oral, Every 6 hours PRN, severe pain (7-10), moderate pain (4-6), Starting on 12/07/24 at 0556 1024 (Given - Provid er: Josie Townsend RN) polyethylene glycol (PEG) 3350 (Miralax) packet 17 g 17 g, Oral, Daily PRN, constipation, Starting on 12/07/24 at 0556, 1st line for treatment of constipation - give scheduled if no bowel movement in past 24 hours. Linked Groups Order Group 1: acetaminophen (Tylenol) tablet 650 mgJump to med 650 mg, Oral, Every 6 hours PRN, mild pain (1-3), fever, For temp greater than 100.4 F (38 C), Starting on 12/07/24 at 0556, Maximum dose of acetaminophen is 4000 mg from all sources in 24 hours. Or acetaminophen (Tylenol) suppository 650 mgJump to med 650 mg, Rectal, Every 6 hours PRN, fever, For temp greater than 100.4 F (38 C), Starting on 12/07/24 at 0556, Administer if oral route cannot be used. Maximum dose of acetaminophen is 4000 mg from all sources in 24 hours. Group 2: ondansetron ODT (Zofran-ODT) disintegrating tablet 4 mgJump to med 4 mg, Oral, Every 8 hours PRN, nausea, vomiting, Starting on 12/07/24 at 0556, 1st Line. If inadequate response within 60 minutes, proceed to next-line agent or contact provider if no further options ordered. Patient should allow tablet to dissolve on tongue. Do not remove from blister pack until just before administering. Or ondansetron (Zofran) injection 4 mgJump to med 4 mg, IntraVENous, Every 6 hours PRN, nausea, vomiting, Starting on 12/07/24 at 0556, 1st Line. Give IV if patient is unable to take orally. If inadequate response within 60 minutes, proceed to next-line agent or contact provider if no further options ordered. Scheduled Medication Order 12/17/2024 12/18/2024 12/19/2024 acetaminophen (Tylenol) tablet 975 mg 975 mg, oral, Every 8 hours, First dose on 12/07/24 at 1730, If ordered PRN for pain, nurse is permitted to administer this medication for higher pain scores based on patient preference? Yes 0114 (Given - Provider: Sharron Ponce RN)0908 (Given - Provider: Gaby Wyman RN)1722 (Given - Provider: Carrie Hunter RN) 0022 (Given - Provider: Jimena Moody RN)0847 (Given - Provider: Rosa Mcfadden, AMAN)1643 (Given - Provider: Rosa Mcfadden, AMAN) 0135 (Given - Provider: Carmina Corona RN)0830 (Given - Provider: Shanel Norwood RN)1730 (Due) amoxicillin-pot clavulanate (Augmentin) 875-125 mg per tablet 1 tablet 1 tablet, oral, Every 12 hours scheduled, First dose on Mon12/16/24 at 1345, Suspected Indication (Select all that apply): Cellulitis, Skin and Soft Tissue, Indications: Cellulitis, Skin and Soft Tissue 0114 (Given - Provider: Sharron Ponce, AMAN)0908 (Given - Provider: Gaby Wyman RN)2036 (Given - Provider: Sharron Ponce RN) 0846 (Given - Provider: Rosa Mcfadden, AMAN)2121 (Given - Provider: Carmina Corona RN) 0826 (Given - Provider: Shanel Norwood RN)2100 (Due) bisacodyl (Dulcolax) suppository 10 mg 10 mg, rectal, Daily, First dose on Mon12/17/24 at 0900 0914 (Not Given - Provider: Gaby Wyman RN - Reason: Patient/family refused) 0850 (Not Given - Provider: Rosa Mcfadden RN - Reason: Patient/family refused) 0829 (Not Given - Provider: Shanel Norwood RN - Reason: Patient/family refused) cetirizine (ZyrTEC) tablet 10 mg 10 mg, oral, Daily, First dose on Mon12/19/24 at 0900 0827 (Given - Provider: Shanel Norwood RN) chlorhexidine (Hibiclens) 4 % liquid Topical, 2 times daily, First dose on Mon12/07/24 at 2100, Apply to buttock 0917 (Not Given - Provider: Gaby Wyman RN - Reason: Patient/family refused)2223 (Not Given - Provider: Sharron Ponce RN - Reason: Patient/family refused) 0851 (Not Given - Provider: Rosa Mcfadden RN - Reason: Patient/family refused) 0536 (Given - Provider: Carmina Corona RN)1300 (Due - Provider: Shanel Norwood, RN)2100 (Due) cholecalciferol (Vitamin D-3) tablet 1,000 Units 1,000 Units, oral, Daily, First dose (after last modification) on Mon12/11/24 at 0900 0908 (Given - Provider: Gaby Wyman RN) 0847 (Given - Provider: Rosa Mcfadden, AMAN) 0827 (Given - Provider: Shanel Norwood RN) clindamycin (Cleocin T) 1 % gel Topical, 2 times daily, First dose on Mon12/07/24 at 2100, Apply to buttock 1042 (Given - Provider: Gaby Wyman RN)2223 (Given - Provider: Sharron Ponce RN) 0851 (Given - Provider: Rosa Mcfadden, AMAN) 0536 (Given - Provider: Carmina Corona RN)1300 (Due - Provider: Shanel Norwood RN)2100 (Due) enoxaparin (Lovenox) syringe 40 mg 40 mg, subcutaneous, Daily, First dose on Mon12/07/24 at 1700 0915 (Given - Provider: Gaby Wyman RN) 0848 (Given - Provider: Rosa Mcfadden, AMAN) 0827 (Given - Provider: Shanel Norwood RN) folic acid (Folvite) tablet 1 mg 1 mg, oral, Daily, First dose on Mon12/07/24 at 1730 0908 (Given - Provider: Gaby Wyman RN) 0847 (Given - Provider: Rosa Mcfadden, AMAN) 0827 (Given - Provider: Shanel Norwood RN) gabapentin (Neurontin) capsule 300 mg 300 mg, oral, 2 times daily, First dose (after last modification) on Mon12/17/24 at 0900, Capsules may be opened and sprinkled on food (eg, applesauce, orange juice, pudding 0908 (Given - Provider: Gaby Wyman RN)2036 (Given - Provider: Sharron Ponce, AMAN) 0847 (Given - Provider: Rosa Mcfadden RN)212 (Given - Provider: Carmina Corona RN) 0827 (Given - Provider: Shanel Norwood, AMAN)2099 (Due) lactated Ringer's bolus 1,000 mL (COMPLETED) 1,000 mL, intravenous, at 500 mL/hr, Administer over 2 Hours, Once, On Mon12/18/24 at 1100, For 1 dose 1054 (New Bag - Provider: Rosa Mcfadden, AMAN)1138 (Rate/Dose Verify - Provider: Rosa Mcfadden, AMAN)1254 (Stopped - Provider: Rosa Mcfadden RN) lidocaine (Xylocaine) 10 mg/mL (1 %) injection 0.1 mL 0.1 mL, subcutaneous, Once, On Key 12/12/24 at 1200, For 1 dose, Recovery (only), To be used for IV insertion ONLY melatonin tablet 3 mg 3 mg, oral, Nightly, First dose on 12/07/24 at 2100 203 (Given - Provider: Sharron Ponce RN) 2120 (Given - Provider: Carmina Corona RN) 2099 (Due) methadone (Dolophine) tablet 10 mg 10 mg, oral, Every 8 hours, First dose on Kye 12/12/24 at 2200, Indication for use: Pain/Analgesia 0636 (Given - Provider: Sharron Ponce RN)1431 (Given - Provider: Gaby Wyman RN)2220 (Given - Provider: Sharron Ponce RN) 0627 (Given - Provider: Sharron Ponce RN)1411 (Given - Provider: Rosa Mcfadden, AMAN)2122 (Given - Provider: Carmina Corona RN) 0514 (Given - Provider: Carmina Corona RN)1308 (Given - Provider: Shanel Norwood, AMAN)2200 (Due) polyethylene glycol (Glycolax, Miralax) packet 17 g 17 g, oral, Daily, First dose on 12/07/24 at 1815, Bowel Regimen - for prevention of constipation. 0915 (Not Given - Provider: Gaby Wyman RN - Reason: Patient/family refused) 0852 (Not Given - Provider: Rosa Mcfadden RN - Reason: Patient/family refused) 08 (Given - Provider: Shanel Norwood RN) sennosides-docusate sodium (Leda-Colace) 8.6-50 mg per tablet 2 tablet 2 tablet, oral, 2 times daily, First dose on 12/07/24 at 2100 0915 (Not Given - Provider: Gaby Wyman RN - Reason: Patient/family refused)2036 (Not Given - Provider: Sharron Ponce RN - Reason: Patient/family refused) 0852 (Given - Provider: Rosa Mcfadden RN)212 (Given - Provider: Carmina Corona RN) 08 (Given - Provider: Shanel Norwood, AMAN)2099 (Due) tiZANidine (Zanaflex) tablet 2 mg 2 mg, oral, 3 times daily, First dose on 12/07/24 at 2100 0908 (Given - Provider: Gaby Wyman RN)1431 (Given - Provider: Gaby Wyman RN)2035 (Given - Provider: Sharron Ponce, AMAN) 0846 (Given - Provider: Rosa Mcfadden RN)1449 (Given - Provider: Rosa Mcfadden RN)2252 (Given - Provider: Carmina Corona, AMAN) 0827 (Given - Provider: Shanel Norwood RN)1500 (Due)2099 (Due) varenicline tartrate (Chantix) tablet 1 mg 1 mg, oral, 2 times daily, First dose on 12/07/24 at 2100, Give with meals and with a full glass of water. 0908 (Given - Provider: Gaby Wyman RN)2035 (Given - Provider: Sharron Ponce RN) 0847 (Given - Provider: Rosa Mcfadden RN)2122 (Given - Provider: Carmina Corona RN) 0827 (Given - Provider: Shanel Norwood, AMAN)2099 (Due) PRN Medication Order 12/17/2024 12/18/2024 12/19/2024 HYDROmorphone (Dilaudid) injection 1 mg 1 mg, intravenous, Every 2 hour PRN, pain breakthrough, Starting on 12/07/24 at 1728 0908 (Given - Provider: Gaby Wyman RN)1242 (Given - Provider: Gaby Wyman RN)2220 (Given - Provider: Sharron Ponce RN - Comment: for a wound dressing change) 0449 (Given - Provider: Sharron Ponce RN)0956 (Given - Provider: Rosa Mcfadden, RN) 1103 (Given - Provider: Shanel Norwood RN) ondansetron (Zofran) injection 4 mg(Linked Group 1) 4 mg, intravenous, Every 8 hours PRN, nausea/vomiting, first line, Starting on 12/08/24 at 1549, Give IV if patient is unable to take orally. When administering via IV Push, administer over 3-5 minutes. 2246 (Given - Provider: Carmina Corona, AMAN) ondansetron (Zofran) tablet 4 mg(Linked Group 1) 4 mg, oral, Every 8 hours PRN, nausea/vomiting, first line, Starting on 12/08/24 at 1549 2246 (See Alternative - Provider: Carmina Corona RN) oxyCODONE (Roxicodone) immediate release tablet 20 mg 20 mg, oral, Every 3 hours PRN, pain moderate (4-6), first line, pain severe (7-10), first line, Starting on 12/07/24 at 1727 0114 (Given - Provider: Sharron Ponce RN)0433 (Given - Provider: Sharron Ponce RN)0740 (Given - Provider: Gaby Wyman RN)1137 (Given - Provider: Gaby Wyman, RN)1437 (Given - Provider: Gaby Wyman, RN)2036 (Given - Provider: Sharron Ponce RN) 0022 (Given - Provider: Jimena Moody RN)0348 (Given - Provider: Sharron Ponce RN)0847 (Given - Provider: Rosa Mcfadden, RN)1240 (Given - Provider: Rosa Mcfadden, RN)1608 (Given - Provider: Rosa Mcfadden, RN)1933 (Given - Provider: Rosa Mcfadden, RN)2250 (Given - Provider: Carmina Corona RN) 0136 (Given - Provider: Carmina Corona RN)0458 (Given - Provider: Carmina Corona RN)0825 (Given - Provider: Shanel Norwood RN)1246 (Given - Provider: Shanel Norwood RN) oxygen (O2) therapy inhalation, Continuous PRN - O2/gases, other, Starting on Key 12/12/24 at 1143, Recovery (only), Device: Nasal Cannula, Rate in liters per minute: Other, Custom Value: 1-6 LPM, Keep O2 Sat Above: 92% prochlorperazine (Compazine) injection 10 mg(Linked Group 2) 10 mg, intravenous, Every 6 hours PRN, nausea/vomiting, second line, Starting on 12/08/24 at 1023, Give IV if patient is unable to take orally. prochlorperazine (Compazine) suppository 25 mg(Linked Group 2) 25 mg, rectal, Every 12 hours PRN, nausea/vomiting, second line, Starting on 12/08/24 at 1023, Give IN if patient is unable to take orally or receive by injection. prochlorperazine (Compazine) tablet 10 mg(Linked Group 2) 10 mg, oral, Every 6 hours PRN, nausea/vomiting, second line, Starting on 12/08/24 at 1023 Linked Groups Order Group 1: ondansetron (Zofran) tablet 4 mgJump to med 4 mg, oral, Every 8 hours PRN, nausea/vomiting, first line, Starting on 12/08/24 at 1549 Or ondansetron (Zofran) injection 4 mgJump to med 4 mg, intravenous, Every 8 hours PRN, nausea/vomiting, first line, Starting on 12/08/24 at 1549, Give IV if patient is unable to take orally. When administering via IV Push, administer over 3-5 minutes. Group 2: prochlorperazine (Compazine) tablet 10 mgJump to med 10 mg, oral, Every 6 hours PRN, nausea/vomiting, second line, Starting on 12/08/24 at 1023 Or prochlorperazine (Compazine) injection 10 mgJump to med 10 mg, intravenous, Every 6 hours PRN, nausea/vomiting, second line, Starting on 12/08/24 at 1023, Give IV if patient is unable to take orally. Or prochlorperazine (Compazine) suppository 25 mgJump to med 25 mg, rectal, Every 12 hours PRN, nausea/vomiting, second line, Starting on Mon12/08/24 at 1023, Give IN if patient is unable to take orally or receive by injection. Scheduled Medication Order 12/22/2024 12/23/2024 12/24/2024 acetaminophen (Tylenol) tablet 1,000 mg 1,000 mg, Oral, Every 6 hours, First dose on Mon12/22/24 at 1400, Maximum dose of acetaminophen is 4000 mg from all sources in 24 hours. 1326 (Given - Provider: Kang Dickson, AMAN)2001 (Given - Provider: Barry Man, AMAN) 0238 (Given - Provider: Barry Man, AMAN)0923 (Given - Provider: Sunni Meehan RN)1324 (Given - Provider: Sunni Meehan RN)2123 (Given - Provider: Diana Wise RN) 0146 (Given - Provider: Diana Wise RN)0800 (Not Given - Provider: Wili López RN - Reason: Order parameters not met - Comment: too much tylenol)1400 (Canceled Entry - Provider: Automatic Discharge Provider - Comment: Automatically canceled at discontinue of medication order) albumin human 25 % IV solution 50 g (COMPLETED) 50 g, IntraVENous, at 60 mL/hr, Once, On Mon12/23/24 at 1240, For 1 dose, Infusion rate depends on indication and clinical situation. In emergencies, may administer as rapidly as necessary to improve clinical condition. After initial volume replacement: 25%: Do not exceed 1 mL/minute (60 mL/hr) in patients with normal plasma volume; 2 to 3 mL/minute (120 to 180 mL/hr) in patients with hypoproteinemia 1324 (New Bag - Provider: Sunni Meehan RN) 0700 (Stopped - Provider: Wili López RN) enoxaparin (Lovenox) syringe 40 mg 40 mg, SubCUTAneous, Every 24 hours scheduled (Daily), First dose on Mon12/23/24 at 0945, Indication of Use: Prophylaxis-DVT/PE, Indications: Prophylaxis of Venous Thromboembolism 0945 (Not Given - Provider: Sunni Meehan RN - Reason: Patient/family refused) 0845 (Given - Provider: Wili López, AMAN) gabapentin (Neurontin) capsule 300 mg 300 mg, Oral, Nightly, First dose on Mon12/23/24 at 2100 2123 (Given - Provider: Diana Wise, AMAN) lactated ringers bolus 1,000 mL (COMPLETED) 1,000 mL, IntraVENous, at 500 mL/hr, Administer over 2 Hours, Once, On Mon12/23/24 at 0355, For 1 dose 0355 (New Bag - Provider: Barry Man RN)0555 (Stopped - Provider: Barry Man RN) lactated ringers bolus 500 mL (COMPLETED) 500 mL, IntraVENous, at 250 mL/hr, Administer over 2 Hours, Once, On Mon12/23/24 at 1525, For 1 dose 1525 (New Bag - Provider: Sunni Meehan RN - Comment: Given by Alejandra Felix ,)1725 (Stopped - Provider: Sunni Meehan RN) methadone (Dolophine) tablet 10 mg 10 mg, Oral, Every 8 hours, First dose on Mon12/22/24 at 1300 1326 (Given - Provider: Kang Dickson RN)2136 (Given - Provider: Elsy Santana RN) 0500 (Given - Provider: Barry Man RN)1324 (Given - Provider: Sunni Meehan RN)2123 (Given - Provider: Diana Wise RN) 0517 (Given - Provider: Diana Wise RN)1300 (Canceled Entry - Provider: Automatic Discharge Provider - Comment: Automatically canceled at discontinue of medication order) oxyCODONE (Roxicodone) immediate release tablet 5 mg (COMPLETED) 5 mg, Oral, Once, On Mon12/24/24 at 1015, For 1 dose 1023 (Given - Provider: Wili López, AMAN) oxyCODONE (Roxicodone) immediate release tablet 5 mg (COMPLETED) 5 mg, Oral, Once, On Mon12/24/24 at 1145, For 1 dose 1139 (Given - Provider: Wili López, AMAN) piperacillin-tazobactam (Zosyn) IVPB 4,500 mg 4,500 mg, IntraVENous, at 200 mL/hr, Administer over 0.5 Hours, Every 6 hours, First dose on Mon12/23/24 at 0340, premix bag, Suspected Indication (Select all that apply): Pneumonia (CAP) 0417 (New Bag - Provider: Barry Man RN)0447 (Stopped - Provider: Barry Man RN)0924 (New Bag - Provider: Sunni Meehan, RN)0954 (Stopped - Provider: Sunni Meehan, RN)1540 (New Bag - Provider: Sunni Meehan RN)1610 (Stopped - Provider: Sunni Meehan RN)2212 (New Bag - Provider: Diana Wise RN)2242 (Stopped - Provider: Diana Wise RN) 0340 (New Bag - Provider: Diana Wise RN)0410 (Stopped - Provider: Diana Wise RN)0846 (New Bag - Provider: Wili López, AMAN)0916 (Stopped - Provider: Wili López, AMAN) piperacillin-tazobactam (Zosyn) IVPB 4.5 g (COMPLETED) 4.5 g, IntraVENous, at 200 mL/hr, Administer over 0.5 Hours, Once, On Mon12/22/24 at 1230, For 1 dose, premix bag, Suspected Indication (Select all that apply): Skin and Soft Tissue Infection 1244 (New Bag - Provider: Kang Dickson RN)1328 (Stopped - Provider: Kang Dickson, AMAN) sodium chloride 0.9 % bolus 2,682 mL (COMPLETED) 2,682 mL (30 mL/kg 89.4 kg), IntraVENous, at 1,788 mL/hr, Administer over 1.5 Hours, Once, On Mon12/22/24 at 1230, For 1 dose 1304 (New Bag - Provider: Kang Dickson, AMAN)1434 (Stopped - Provider: Kang Dickson, RN) sodium hypochlorite (Dakin's (HALF-Strength)) 0.25 % external solution Irrigation, 2 times daily, First dose on Mon12/24/24 at 1030, Nursing staff to perform dressing change: Left hip/post thigh: Squamous Cell Carcinoma -Cleanse with dakins soaked gauze. Pack wet to dry dakins soaked gauze, cover with ABD pads BID and PRN 1030 (Canceled Entry - Provider: Automatic Discharge Provider - Comment: Automatically canceled at discontinue of medication order) vancomycin in NS (Vancocin) IVPB 2,000 mg (COMPLETED) 2,000 mg, IntraVENous, at 250 mL/hr, Administer over 120 Minutes, Once, On 12/22/24 at 1300, For 1 dose, For pharmacists: Verify the single weight-based dose associated with this panel assuming the provider selected an appropriate loading dose based on visual assessment of the patient. The loading dose should be verified before completing the consult premix bag, Suspected Indication (Select all that apply): Sepsis of Unknown Etiology 1604 (New Bag - Provider: Mary Mackey, AMAN)1826 (Stopped - Provider: Dolores Muñiz RN) vancomycin IVPB 1250 mg in 250 mL NS (premix) 1,250 mg (rounded from 1,341 mg = 15 mg/kg 89.4 kg), IntraVENous, at 166.7 mL/hr, Administer over 90 Minutes, Every 12 hours, First dose on Mon12/23/24 at 1100, premix bag, Suspected Indication (Select all that apply): Skin and Soft Tissue Infection 1100 (New Bag - Provider: Sunni Meehan RN)1230 (Stopped - Provider: Sunni Meehan RN)1800 (New Bag - Provider: Sunni Meehan RN)1930 (Canceled Entry - Provider: Sunni Meehan RN) 0611 (New Bag - Provider: Diana Wise RN)0741 (Stopped - Provider: Wili López RN) Continuous Medication Order 12/22/2024 12/23/2024 12/24/2024 lactated ringers infusion () 100 mL/hr, IntraVENous, Continuous, Starting on Mon12/22/24 at 1730, For 10 hours 1805 (New Bag - Provider: Kang Dickson RN)2119 (Rate/Dose Verify - Provider: Barry Man RN) 0144 (Rate/Dose Verify - Provider: Barry Man RN)0349 (Rate/Dose Verify - Provider: Barry Man RN)0405 (Stopped - Provider: Barry Man RN)0605 (Restarted - Provider: Barry Man RN)1648 (Stopped - Provider: Sunni Meehan RN) lactated ringers infusion 125 mL/hr, IntraVENous, Continuous, Starting on Mon12/23/24 at 0740, For 24 hours 0923 (Rate/Dose Verify - Provider: Sunni Meehan RN)1239 (Rate/Dose Change - Provider: Sunni Meehan RN)2123 (New Bag - Provider: Diana Wise RN) 0147 (Rate/Dose Verify - Provider: Diana Wise RN)0518 (New Bag - Provider: Diana Wise RN)0900 (Stopped - Provider: Wili López RN) norepinephrine (Levophed) 4 mg in 0.9% sodium chloride 250 mL infusion ([id number]) (premix) (CANCELED) 2-50 mcg/min (7.5-187.5 mL/hr), IntraVENous, Continuous, Starting on Mon12/22/24 at 1605, For 24 hours, If Titrate Infusion? is "No": Disregard instructions below. If Titrate infusion? is "Yes": If rate LESS than 10 mcg/min: Titrate by 2 mcg/min no faster than every 5 minutes to goal. If rate GREATER than or equal to 10 mcg/min: Titrate by 5 mcg/min no faster than every 5 minutes to goal. When approaching therapeutic goal or weaning off, smaller titration increments of 1 mcg/min no faster than every 5 minutes may be used to maintain goal., Titrate Infusion: Yes, Initial Infusion Dose: 5 mcg/min, Goal of Therapy is: MAP great than 65 mmHg, Contact Provider if: Patient is receiving the maximum dose and is not achieving the goal of therapy, If held outside of ordered parameters contact provider for further direction 1635 (New Bag - Provider: Mary Mackey RN)1640 (Rate/Dose Change - Provider: Kang Dickson RN)1740 (Rate/Dose Change - Provider: Kang Dickson RN)1944 (Rate/Dose Change - Provider: Barry Man RN)2044 (Rate/Dose Change - Provider: Barry Man, AMAN)2205 (Rate/Dose Change - Provider: Barry Man RN) 0143 (Rate/Dose Verify - Provider: Barry Man RN)0349 (Rate/Dose Verify - Provider: Barry Man RN)0506 (Stopped - Provider: Barry Man RN) sodium chloride 0.9 % infusion (CANCELED) 100 mL/hr, IntraVENous, Continuous, Starting on Mon12/23/24 at 0945, For 24 hours 0945 (New Bag - Provider: Sunni Meehan RN) PRN Medication Order 12/22/2024 12/23/2024 12/24/2024 acetaminophen (Tylenol) suppository 650 mg(Linked Group 1) 650 mg, Rectal, Every 6 hours PRN, fever, For temp greater than 100.4 F (38 C), Starting on Mon12/23/24 at 0941, Administer if oral route cannot be used. Maximum dose of acetaminophen is 4000 mg from all sources in 24 hours. acetaminophen (Tylenol) tablet 650 mg(Linked Group 1) 650 mg, Oral, Every 6 hours PRN, mild pain (1-3), fever, For temp greater than 100.4 F (38 C), Starting on Mon12/23/24 at 0941, Maximum dose of acetaminophen is 4000 mg from all sources in 24 hours. naloxone (Narcan) injection 0.4 mg 0.4 mg, IntraVENous, Every 5 min PRN, opioid reversal, respiratory depression, Starting on Mon12/23/24 at 0942, +++ For RR <10, pinpoint pupils, over sedation for opioid reversal - MUST notify carbonating stone cleaner provider immediately after first dose, may give IM or SQ if no IV access +++ ondansetron (Zofran) injection 4 mg(Linked Group 2) 4 mg, IntraVENous, Every 6 hours PRN, nausea, vomiting, Starting on Mon12/23/24 at 0941, 1st Line. Give IV if patient is unable to take orally. If inadequate response within 60 minutes, proceed to next-line agent or contact provider if no further options ordered. ondansetron ODT (Zofran-ODT) disintegrating tablet 4 mg(Linked Group 2) 4 mg, Oral, Every 8 hours PRN, nausea, vomiting, Starting on Mon12/23/24 at 0941, 1st Line. If inadequate response within 60 minutes, proceed to next-line agent or contact provider if no further options ordered. Patient should allow tablet to dissolve on tongue. Do not remove from blister pack until just before administering. oxyCODONE (Roxicodone) immediate release tablet 20 mg 20 mg, Oral, Every 4 hours PRN, mild pain (1-3), moderate pain (4-6), severe pain (7-10), Starting on Mon12/22/24 at 1227 1603 (Given - Provider: Mary Mackey, AMAN)2001 (Given - Provider: Barry Man RN) 0238 (Given - Provider: Barry Man RN)0652 (Given - Provider: Barry Man RN)2127 (Given - Provider: Diana Wise, AMAN) 0146 (Given - Provider: Diana Wise RN) polyethylene glycol (PEG) 3350 (Miralax) packet 17 g 17 g, Oral, Daily PRN, constipation, Starting on Mon12/23/24 at 0941, 1st line for treatment of constipation - give scheduled if no bowel movement in past 24 hours. Linked Groups Order Group 1: acetaminophen (Tylenol) tablet 650 mgJump to med 650 mg, Oral, Every 6 hours PRN, mild pain (1-3), fever, For temp greater than 100.4 F (38 C), Starting on Mon12/23/24 at 0941, Maximum dose of acetaminophen is 4000 mg from all sources in 24 hours. Or acetaminophen (Tylenol) suppository 650 mgJump to med 650 mg, Rectal, Every 6 hours PRN, fever, For temp greater than 100.4 F (38 C), Starting on Mon12/23/24 at 0941, Administer if oral route cannot be used. Maximum dose of acetaminophen is 4000 mg from all sources in 24 hours. Group 2: ondansetron ODT (Zofran-ODT) disintegrating tablet 4 mgJump to med 4 mg, Oral, Every 8 hours PRN, nausea, vomiting, Starting on Mon12/23/24 at 0941, 1st Line. If inadequate response within 60 minutes, proceed to next-line agent or contact provider if no further options ordered. Patient should allow tablet to dissolve on tongue. Do not remove from blister pack until just before administering. Or ondansetron (Zofran) injection 4 mgJump to med 4 mg, IntraVENous, Every 6 hours PRN, nausea, vomiting, Starting on 12/23/24 at 0941, 1st Line. Give IV if patient is unable to take orally. If inadequate response within 60 minutes, proceed to next-line agent or contact provider if no further options ordered. (unrecognized sect ion and content) No Status Records FoundNo Status Records FoundNo Status Records FoundNo Status Records FoundNo Status Records Found INFORMATION SOURCE (unrecogn ized section and content) DATE CREATED AUTHOR 11/13/2024 [facility] DATE CREATED AUTHOR AUTHOR'S ORGANIZ ATION 12/21/2024 [facility] DATE CREATED AUTHOR AUTHOR'S ORGANIZ ATION 12/31/2024 [facility] DATE CREATED AUTHOR AUTHOR'S ORGANIZ ATION 02/18/2025 [facility] DATE CREATED AUTHOR AUTHOR'S ORGANIZ ATION 02/18/2025 [facility] Care Teams (unrecognized sec tion and content) Inspector Watch Train Relationship Specialty [place] [id number] [place] [id number] Consulting Physician Hematology and Oncology 11/29/24 Inspector Watch Train Relationship Specialty [place] [address] [place] [address] Consulting Physician Hematology and Oncology 11/29/24 Inspector Watch Train Relationship Specialty [place] [address] [place] [address] Consulting Physician Hematology and Oncology 11/29/24 Team Status: Active Member Role Status Dates Julio SAMANIEGO Primary Care Provider Active Team Status: Inactive Member Role Status Dates Julio SAMANIEGO Primary Care Provider Active S tart: October 24, 2024 End: October 24, 2024 Julio SAMANIEGO Attending Provider Active Star t: October 24, 2024 End: October 24, 2024 Team Status: Active Member Role Status Dates Julio SAMANIEGO Primary Care Provider Active S tart: December 04, 2024 Julio SAMANIEGO Attending Provider Active Star t: December 04, 2024 Team Status: Inactive Member Role Status Dates Julio SAMANIEGO Primary Care Provider Active S tart: December 04, 2024 End: December 04, 2024 Julio SAMANIEGO Attending Provider Active Star t: December 04, 2024 End: December 04, 2024 Inspector Watch Train Relationship Specialty [place] [address] [place] [address] Consulting Physician Hematology and Oncology 11/29/24 Inspector Watch Train Relationship Specialty [place] [address] [place] [address] Consulting Physician Hematology and Oncology 11/29/24 Inspector Watch Train Relationship Specialty Start Date End Date Generic Provider, [place] [address] PCP - General Ground Source Heat Pump Technician 01/03/25 [place] [address] [place] [address] Consulting Physician Hematology and Oncology 11/29/24 Inspector Watch Train Relationship Specialty Start Date End Date Generic Provider, No [place] [address] PCP - General Ground Source Heat Pump Technician 01/03/25 [place] [address] [place] [address] Consulting Physician Hematology and Oncology 11/29/24 Inspector Watch Train Relationship Specialty Start Date End Date Generic Provider, No [place] [address] PCP - General Ground Source Heat Pump Technician 01/03/25 [place] [address] [place] [address] Consulting Physician Hematology and Oncology 11/29/24 Inspector Watch Train Relationship Specialty Start Date End Date Generic Provider, No [place] [address] PCP - General Ground Source Heat Pump Technician 01/03/25 [place] [address] [place] [address] Consulting Physician Hematology and Oncology 11/29/24 Inspector Watch Train Relationship Specialty Start Date End Date Generic Provider, No [place] [address] PCP - General Ground Source Heat Pump Technician 01/03/25 [place] [address] [place] [address] Consulting Physician Hematology and Oncology 11/29/24 Inspector Watch Train Relationship Specialty Start Date End Date Generic Provider, No [place] [address] PCP - General Ground Source Heat Pump Technician 01/03/25 [place] [address] [place] [address] Consulting Physician Hematology and Oncology 11/29/24 Inspector Watch Train Relationship Specialty Start Date End Date Generic Provider, No [place] [address] PCP - General Ground Source Heat Pump Technician 01/03/25 [place] [address] [place] [address] Consulting Physician Hematology and Oncology 11/29/24 Inspector Watch Train Relationship Specialty Start Date End Date Generic Provider, No [place] [address] PCP - General Ground Source Heat Pump Technician 01/03/25 [place] [address] [place] [address] Consulting Physician Hematology and Oncology 11/29/24 Goals (unrecognized section and content) Goals may be documented in a n alternate sectionGoals may be documented in an alternate section FOR RECORDS PERTAINING TO PATIENTS WHO ARE OR HAVE BEEN ENROLLED IN A CHEMICAL DEPENDENCY/SUBSTANCEABUSE PROGRAM, SOME INFORMATION MAY BE OMITTED. This clinical summary was aggregated from multiple sources. Caution should be exercised in using it in the provision of clinical care. This summary normalizes information from multiple sources, and as a consequence, information in this document may materially change the coding, format and clinical context of patient data. In addition, data may be omitted in some cases. CLINICAL DECISIONS SHOULD BE BASED ON THE PRIMARY CLINICAL RECORDS. [facility] provides no warranty or guarantee of the accuracy or completeness of information in this document.
[2025-02-20 09:23] LABS: Hematocrit 25.1 % (40-54); Hemoglobin 7.7 g/dL (13.0-16.5); Mean Corp Hgb Conc 30.7 g/dL (32-36); Mean Corpuscular Hgb 24.3 pg (27.0-32.0); Mean Corpuscular Volume 79.2 fL (80-94); Mean Platelet Vol. 9.4 fl (6.2-12.0); POSITIVE COUNT YES; RBC Distribution Width CV 19.9 % (11.6-14.6); RBC Distribution Width SD 57.8 fl (35.1-43.9); Red Blood Count 3.17 M/mm3 (4.6-6.2); White Blood Count 10.7 K/mm3 (4.4-11.0)
[2025-02-20 09:28] LABS: Platelet Count 880 K/mm3 (150-450)
[2025-02-20 09:56] LABS: ALB/GLOB Ratio 0.6 RATIO (0.9-2.4); AST(SGOT) 17 U/L (<=37); Alanine Aminotransfer ALT/SGPT 18 U/L (<=46); Albumin, Serum 2.9 g/dL (3.5-5.0); Alkaline Phosphatase 172 U/L (40-129); Anion Gap 13 (5-15); BUN 16 mg/dL (4-19); BUN/Creat Ratio 11.2 RATIO (10-20); Calcium,Total 8.9 mg/dL (7.6-11.0); Carbon Dioxide 22.1 mmol/L (21.0-32.0); Chloride 103 mmol/L (98-108); Cholesterol 172 mg/dL (<=200); Creatinine, Serum 1.38 mg/dL (0.70-1.20); EST Glomerular Filtration Rate 62 (>60); Globulin 4.9 g/dL (2.2-4.2); Glucose 99 mg/dL (70-99); High Density Lipoprotein 18 mg/dL; Low Density Lipoprotein Calc. 94 mg/dL; Magnesium 2.1 mg/dL (1.5-2.2); Potassium 4.7 mmol/L (3.3-5.1); Protein, Total 7.8 g/dL (5.9-8.4); Sodium Level 138 mmol/L (133-145); Total Bilirubin 0.25 mg/dL (0.00-1.30); Triglycerides 300 mg/dL; Very Low Density Lipoprotein 60 mg/dL (5-40); Vitamin D,25 Hydroxy 31.6 ng/mL (30-100); cholesterol:hdl ratio screen 9.77
[2025-02-20 10:22] LABS: Scan Indicated on CBC? Y/N YES- FLAGS NOTED
== END ==
LOC: OLS.ACW300 05:00
PROVIDERS: PCP Family Medicine; Visit Provider Family Medicine
DX: S31.829D Unspecified open wound of left buttock, subsequent encounter (principal); B45.1 Cerebral cryptococcosis; Z93.3 Colostomy status; R27.9 Unspecified lack of coordination; R53.1 Weakness; R78.81 Bacteremia
CPT/HCPCS: 36415; 80053; 80061; 82306; 83735; 84443; 85027

== ENCOUNTER → 2025-03-12 05:00 | Outpatient (REF) | payer MEDICAID, SELFPAY ==
--- OUTSIDE RECORDS SUMMARY | 2025-03-12 04:47 | XMS RPT_ITS | CCD ---
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 Name Role Phone Unavailable Primary Care Provider Unavailbry Jiang MD, Sreedhar Yousif Unavailable Apolinar NILESEN, Sreedhar Yousif Unavailable Julio Hare Primary Care Provider Unavail able Julio Hare Attending Provider UnavailJUVENAL Tompkins Attending Unavailable JUVENAL MATHUR Admitting Unavailable ARBEN FERNANDEZ Attending UnavailCLARITA Hooker Admitting Unavailable PAULINO LARIOS Admitting Unavailable PAULINO LARIOS Attending Unavailable XIOMARA KAUFFMAN Attending Unavailable Generic Provider , No Assigned Pcp Primary Car e Provider Unavailable Generic Provider , No Assigned Pcp Primary Car e Provider Unavailable Tyree NIELSEN, Sakti Unavailable [phone] KIMBER LAST Attending Unavailable KIMBER LAST Attending Unavailable KIMBER LAST Attending Unavailable MARLON CHRISTIANSEN Attending Unavailable MARLON CHRISTIANSEN Attending Unavailable MARLON CHRISTIANSEN Attending Unavailable DEAN JALLOH Attending Unavailable Julio Hare Primary Care Unavailable Julio Hare Attending Unavailable Julio Hare Attending Unavailable Julio Hare Primary Care Unavailable Julio Hare Primary Care Unavailable Julio Hare Attending Unavailable Julio Hare Primary Care Unavailable Julio Hare Attending Unavailable XIOMARA KAUFFMAN Referring Unavailable ANKIT NINO Admitting Unavailable MICA LY Attending Unavailable SUBAUSTE, GILBERT S Admitting Unavailable DELGADO RENEE Consulting Unavailable FIDEL CLARKE Attending Unavailable BALDOMERO WILSON Admitting UnavailFER [place] Referring Unavailable HEATHER LACKEY Attending Unavailable SREEDHAR JIANG Attending Unavailable SUBAUSTE, GILBERT S Referring Unavailable LATRICIA SCHROEDER Referring UnavailTOYA Edmondson Admitting Unavailable MACK FRIAS Attending Unavailable LYNETTE SEGOVIA Referring Unavailable APOLINAR, IRIS Nica Attending Unavailable APOLINAR, IRIS Y Referring Unavailable APOLINAR, IRIS Y Referring Unavailable APOLINAR, IRIS Y Referring Unavailable ANASTASIIA, CURTIS Admitting Unavailable ANASTASIIA, CURTIS Attending Unavailable SALVADOR, WILLOW Referring Unavailable SALVADOR WILLOW Referring Unavailable GENERIC PROVIDER, NO ASSIGNED [...] PROVIDER, NO ASSIGNED PCP Primary Care Unavailable ASTRID HAWLEY Attending Unavailable ANABA, EZINNE Referring Unavailable KONG MINA Attending Unavailable TYREE, SAKTI Referring Unavailable Allergies Allergy Classification Reported Allergen(s) Allergy Type Date of Onset Reaction(s) Facility (8 sources) Bananas; Translations: [BANANA] Propensity to adverse reactions 5 Itching [facility] (12 sources) Banana Extract Drug Allergy 5 Itching [facility] (1 source) ALLERGIES NOT ON FILE; Translations: [ALLERGIES NOT ON FILE] Propensity to adverse reactions (disorder) [facility] 3 Repository Medications Current Medications Medication Drug Class(es) Dates [...] 11-22-2024 End: 11-22-2024 Start: 11-10-2024 End: 11-10-2024 carbamide peroxide 65 mg/ml otic solution (3 sources) Start: 02-03-2025 carbamide yamilex xide (Debrox) 6.5 % otic solution Indications: Abscess Administer 5 drops into each ear if needed for ear pain (Ear clogged). 15 mL 02/03/2025 Active cholecalciferol 0.025 mg ora l tablet (2 sources) Vitamin D Start: 12-11-2024 Start: 12-07-2024 End: 12-10-2024 cholecalciferol (Vitamin D3) 200 Unit tablet split tablet (6 sources) cholecalciferol (Vitamin D3) 200 Unit tablet split tablet Take 10,000 Units by mouth daily. Active cholecalciferol, vitamin D3, (VITAMIN D3 ORAL) (1 source) take 63902 [IU] by mouth once daily cholecalciferol, vitamin D3, (VITAMIN D3 ORAL) Take 10,000 Units by mouth once daily. Active clindamycin 0.01 mg/mg topical gel (20 sources) Lincosamide Antibacterial Start: 025 clindamycin (Cleocin T) 1 % gel Indications: Hidradenitis suppurativa , Abscess Apply topically 2 times a day. Apply to left thigh around incision and drainage site, do not apply directly to surgery site 10/21/2024 Active Start: 09-14-2024 End: 10-23-2024 Start: 09-13-2024 End: [...] around incision site not on direct incision Active docusate sodium 50 mg / sennosides, assisted 8.6 mg oral tablet (20 sources) Start: 11-27-2024 End: 11-27-2025 take 2 tablets by mouth twice daily sennosides-docusate sodium (Leda-Colace) 8.6-50 mg tablet Indications: Opioid-induced constipation Take 2 tablets by mouth 2 times a day. 11/27/2024 11/27/2025 Active Start: 10-22-2024 End: 11-27-2025 doxycycline hyclate 100 mg o ral tablet (3 sources) Tetracycline-class Drug Start: 09-20-2024 End: 10-23-2024 Drug or medicament (substanc e) (20 sources) Start: 12-12-2024 Start: 10-13-2024 End: 10-13-2024 Start: 09-30-2024 End: 10-23-2024 Start: 08-20-2024 End: 10-23-2024 Start: 07-08-2024 End: 10-23-2024 Start: 05-27-2024 End: 10-23-2024 Start: 04-12-2024 End: 10-23-2024 Start: 04-04-2024 End: 10-23-2024 Start: 02-29-2024 End: 10-23-2024 Start: 02-09-2024 End: 10-23-2024 Start: 01-16-2024 End: 10-23-2024 Start: 12-29-2023 End: 10-23-2024 Start: 12-11-2023 End: 10-23-2024 End: 12-08-2024 0.4 ml enoxaparin sodium 100 mg/ml prefilled syringe (17 sources) Low Molecular Weight Heparin Start: 02-18-2025 inject 0.4 mL by subcutaneous injection every twenty-four hours enoxaparin (Lovenox) 40 mg/0.4 mL syringe Indications: deep vein thrombosis prevention Inject 0.4 mL (40 mg) under the skin once every 24 hours. 02/18/2025 Active Start: 12-23-2024 End: 12-24-2024 inject 40 mg [...] scheduled, First dose on Mon09/15/24 at 1600 ferrous sulfate 325 mg delayed release oral tablet (11 sources) take 1 tablet by barbara th once daily ferrous sulfate 325 (65 Fe) MG EC tablet Take 1 tablet by mouth daily. Active folic acid 1 mg oral tablet (20 sources) Start: 11-16-2024 take 1 tablet by mouth once daily folic acid (Folvite) 1 mg tablet Indications: Vitamin deficiency Take 1 tablet (1 mg) by mouth once daily. 11/27/2024 Active Start: 11-14-2024 End: 11-15-2024 gabapentin 300 mg [...] mouth once daily at bedtime. 11/27/2024 11/27/2025 Active 1 ml heparin sodium, porcine 5000 [...] as directed 2 times daily. 12/24/2024 Active ibuprofen 600 mg oral tablet (8 sources) Nonsteroidal Anti-inflammatory Drug Start: 03-10-2025 End: 03-10-2026 take 1 tablet by mouth four times daily as needed for pain ibuprofen 600 mg tablet Indications: Cancer associated pain Take 1 tablet (600 mg) by mouth 4 times a day as needed for mild pain (1 - 3) (pain). 120 tablet 03/10/2025 03/10/2026 Active Start: 02-03-2025 End: 03-10-2025 take 1 tablet by mouth every six hours ibuprofen 600 mg tablet Indications: Abscess Take 1 tablet (600 mg) by mouth every 6 hours. 02/03/2025 03/10/2025 Discontinued (Med List Cleanup) End: 10-23-2024 take 600 mg by mouth every four hours lactose-reduced food (ENSURE PLUS ORAL) (2 sources) lactose-reduced food (ENSURE PLUS ORAL) Take by mouth once daily in the morning. Active melatonin 3 mg oral tablet (20 sources) Start: 03-10-2025 End: 03-10-2026 take 2 tablets by mouth once daily at bedtime melatonin 3 mg tablet Indications: Cancer associated pain Take 2 tablets (6 mg) by mouth once daily at bedtime. 60 tablet 03/10/2025 03/10/2026 Active Start: 11-08-2024 End: 11-27-2025 take 1 tablet by mouth once daily at bedtime melatonin 3 mg tablet Indications: Cancer associated pain Take 1 tablet (3 mg) by mouth once daily at bedtime. 11/27/2024 03/10/2025 Discontinued (Reorder) midodrine hydrochloride 10 mg oral tablet (3 sources) alpha-Adrenergic Agonist Start: 02-03-2025 take 1 tablet by mouth three times daily midodrine (Proamatine) 10 mg tablet Indications: Abscess Take 1 tablet (10 mg) by mouth 3 times daily (morning, midday, late afternoon). 02/03/2025 Active multivitamin tablet (20 sources) take 1 tablet by mouth once daily multivitamin tablet Take 1 tablet by mouth once daily. Active take 1 tablet by mouth once douglas y multivitamin tablet Take 1 tablet by mouth once daily. Suspended multivitamin with minerals tablet (2 sources) Start: [...] 1 tablet by mouth once daily. Active naloxone hydrochloride 40 mg /ml nasal spray (20 sources) Opioid Antagonist St ar t: En d: naloxone (Narcan) 4 mg/0.1 m L nasal spray Indications: Cancer associated pain , Encounter for monitoring opioid maintenance therapy Administer 1 spray (4 mg) into affected nostril(s) if needed for opioid reversal or respiratory depression. May repeat every 2-3 minutes if needed, alternating nostrils, until medical assistance becomes available. 2 each 03/10/2025 03/10/2026 Active Start: 12-23-2024 End: 12-24-2024 0.4 mg, IntraVENous, Every 5 min PRN, opioid reversal, respiratory depression, Starting on 12/23/24 at 0942, +++ For RR Start: 12-07-2024 End: 12-07-2024 0.4 mg, IntraVENous, Every 5 min PRN, opioid reversal, respiratory depression, Starting on 12/07/24 at 0556, +++ For RR Start: 11-27-2024 [...] op ioid reversal, Starting on Mon11/08/24 at 8, For oversedation/difficult to rouse, pinpoint pupils, RR Start: 09-13-2024 End: 09-13-2024 0.4 mg, IntraVENous, Every 5 min PRN, opioid reversal, respiratory depression, Starting on Mon09/13/24 at 1050, +++ For RR oxyCODONE hydrochloride 10 mg oral tablet (20 sources) Opioid Agonist Start: 03-10-2025 End: 03-20-2025 oxyCODONE (Roxicodone) 10 mg immediate release tablet 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 02/17/2025 03/10/2025 Discontinued (Med List Cleanup) Start: 12-24-2024 End: 12-24-2024 take 5 mg [...] Start: 12-07-2024 End: 12-07-2024 Start: 12-07-2024 End: 03-22-2025 take 1 tablet by mouth every six [...] Start: 09-15-2024 take 1 tablet by barbara every six hours as needed 5 mg, oral, Every 6 hours PRN, pain moderate (4-6), first line, PRN PRIOR TO DRESSING CHANGES, Starting on 09/15/24 at 1022, If ordered PRN for pain, nurse is permitted to administer this medication for higher pain scores based on patient preference? Yes pantoprazole 20 mg delayed release oral tablet (2 sources) Proton Pump Inhibitor take 1 tablet by mouth once daily before mealtime pantoprazole (ProtoNix) 20 mg EC tablet Take 1 tablet (20 mg) by mouth once daily in the morning. Take before meals. Do not crush, chew, or split. Active prochlorperazine 5 mg/ml injectable solution (1 source) Phenothiazine Start: 2024 take 10 mg intravenously every six hours as needed sodium chlor-hypochlorous acid (Vashe) 0.033 % irrigation solution (20 sources) sodium chlor-hypochlorous acid (Vashe) 0.033 % irrigation solution Irrigate with as directed 2 times a day. As directed. Active sodium chlor-hyp ochlorous acid (Vashe) 0.033 % irrigation solution Irrigate with as directed 2 times a day. As directed. Suspended Study STOP-1 [id number] povorcitinib 45mg or 75mg tablet (20 sources) Start: 09-30-2024 take 1 tablet by mouth once daily in the morning Study STOP-1 [id number] povorcitinib 45mg or 75mg tablet Indications: Clinical trial participant Take 1 tablet by mouth once daily. Preferably in the morning, with a full glass of water. 31 tablet 09/30/2024 Active Start: 08-20-2024 take 1 tablet by barbara th once daily in the morning Study STOP-1 [id number] povorcitinib 45mg or 75mg tablet Indications: Clinical trial participant Take 1 tablet by mouth once daily. Preferably in the morning, with a full glass of water. 62 tablet 08/20/2024 Active Start: 07-08-2024 take 1 tablet by barbara th once daily in the morning Study STOP-1 [id number] povorcitinib 45mg or 75mg tablet Indications: Clinical trial participant Take 1 tablet by mouth once daily. Preferably in the morning, with a full glass of water. 62 tablet 07/08/2024 Active Start: 05-27-2024 take 1 tablet by barbara th once daily in the morning Study STOP-[facility] [id number] povorcitinib 45mg or 75mg tablet Indications: Clinical trial participant Take 1 tablet by mouth once daily. Preferably in the morning, with a full glass of water. 62 tablet 05/27/2024 Active Start: 04-12-2024 take 1 tablet by barbara th once daily in the morning Study STOP-1 [id number] povorcitinib 45mg or 75mg tablet Indications: Clinical trial participant Take 1 tablet by mouth once daily. Preferably in the morning, with a full glass of water. 62 tablet 04/12/2024 Active Start: 04-04-2024 take 1 tablet by barbara th once daily in the morning Study STOP-HS1 [id number] povorcitinib 45mg or 75mg tablet Indications: Clinical trial participant Take 1 tablet by mouth once daily. Preferably in the morning, with a full glass of water. 31 tablet 04/04/2024 Active Start: 02-29-2024 take 1 tablet by barbara th once daily in the morning Study STOP-HS1 [id number] povorcitinib 45mg or 75mg tablet Indications: Clinical trial participant Take 1 tablet by mouth once daily. Preferably in the morning, with a full glass of water. 31 tablet 02/29/2024 Active Study STOP-[facility] [id number] povorcitinib 45mg, 75mg or placebo tablet (20 sources) Start: 02-09-2024 take 1 tablet by mouth once daily in the morning Study STOP-1 [id number] povorcitinib 45mg, 75mg or placebo tablet Indications: Clinical trial participant Take 1 tablet by mouth once daily. Preferably in the morning, with a full glass of water. 31 tablet 02/09/2024 Active Start: 01-16-2024 take 1 tablet by barbara th once daily in the morning Study STOP-HS1 [id number] povorcitinib 45mg, 75mg or placebo tablet Indications: Clinical trial participant Take 1 tablet by mouth once daily. Preferably in the morning, with a full glass of water. 31 tablet 01/16/2024 Active Start: 12-29-2023 take 1 tablet by barbara th once daily in the morning Study STOP-1 [id number] povorcitinib 45mg, 75mg or placebo tablet Indications: Clinical trial participant Take 1 tablet by mouth once daily. Preferably in the morning, with a full glass of water. 31 tablet 12/29/2023 Active Start: 12-11-2023 take 1 tablet by barbara th once daily in the morning Study STOP-HS1 [id number] povorcitinib 45mg, 75mg or placebo tablet Indications: Clinical trial participant Take 1 tablet by mouth once daily. Preferably in the morning, with a full glass of water. 31 tablet 12/11/2023 Active Start: 12-11-2023 take 1 tablet by barbara th once daily in the morning Study STOP-HS1 [id number] povorcitinib 45mg, 75mg or placebo tablet Indications: Clinical trial participant Take 1 tablet by mouth once daily. Preferably in the morning, with a full glass of water. 31 tablet 0 12/11/2023 Active tiZANidine 2 mg oral tablet (20 sources) Central alpha-2 Adrenergic Agonist Start: 10-11-2024 take 1 tablet by mouth three times daily tiZANidine (Zanaflex) 2 mg tablet Indications: Pain of left lower extremity Take 1 tablet (2 mg) by mouth 3 times a day. 10/21/2024 Active Vancomycin (20 sources) Glycopeptide Antibacterial Start: [...] line, Starting on 12/08/24 at 1023, Give DC if patient is unable to take orally [...] mg) by mouth every 8 hours. 11/27/2024 Active Start: 09-13-2024 take 1 tablet by barbara th every eight hours 975 mg, oral, Every 8 hours, First dose (after last modification) on Mon09/13/24 at 2315, If ordered PRN for pain, nurse is permitted to administer this medication for higher pain scores based on patient preference? Yes 20 ml albumin human, assisted 250 mg/ml injection (2 sources) Human Serum [...] sources) Histamine-1 Receptor Antagonist Start: 12-20-2024 End: 03-10-2025 take 1 tablet by mouth once daily cetirizine (ZyrTEC) 10 mg tablet Indications: Rhinitis, unspecified type Take 1 tablet (10 mg) by mouth once daily. 12/20/2024 03/10/2025 Discontinued (Med List Cleanup) Start: 12-19-2024 Start: 10-11-2024 Start: 09-14-2024 take 10 mg by mouth once daily 10 mg, oral, Daily, First dose on Mon09/14/24 at 0900 chlorhexidine gluconate 40 mg/ml medicated liquid soap (20 sources) Start: 11-11-2024 chlorhexidine (Hibiclens) 4 % external liquid Indications: Wound infection Apply topically 2 times a day. 11/27/2024 Suspended 72 hr fentaNYL 0.075 mg/hr transdermal system [...] every hour 50 mcg, IntraVENous, Once, On 11/08/24 at 1515, For 1 dose, If oral and IV narcotics ordered, use oral first and only use IV if oral is ineffective or cannot take oral. Do Not give oral and IV within 1 hour of each other unless specifically ordered. Start: 09-13-2024 End: 09-13-2024 50 mcg, IntraVENous, Every 1 hour PRN, moderate pain (4-6), severe pain (7-10), Starting on 09/13/24 at 1732, For 3 doses, If oral and IV narcotics ordered, use oral first and only use IV if oral is ineffective or cannot take oral. Do Not give oral and IV within 1 hour of each other unless specifically ordered. 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 Take 15 mg by mouth at 6am and 10 mg by mouth at 2pm and 9pm daily. 02/17/2025 03/10/2025 Discontinued (Med List Cleanup) Start: 12-12-2024 End: 12-29-2024 take 1 tablet [...] hour of each other unless specifically ordered. 24 hr nicotine 0.875 mg/hr transdermal system (8 sources) Cholinergic Nicotinic Agonist Start: 10-11-2024 End: 10-19-2024 Start: 09-15-2024 End: 10-23-2024 norepinephrine (Levophed) 4 mg in 0.9% sodium chloride 250 mL infusion ([id number]) (premix) (2 sources) Start: 12-22-2024 End: 12-23-2024 [...] sources) Proton Pump Inhibitor Start: 12-19-2024 End: 03-10-2025 take 1 capsule by mouth once daily omeprazole (PriLOSEC) [address] capsule Indications: Gastroesophageal reflux disease without esophagitis Take 1 capsule (20 mg) by mouth once daily. Do not crush or chew. 12/19/2024 03/10/2025 Discontinued (Med List Cleanup) ondansetron 4 mg oral tablet (20 sources) [...] End: 12-07-2024 4 mg, IntraVENous, Once, On Mon12/07/24 at 0245, For 1 dose Start: 11-27-2024 [...] and Soft Tissue Infection Start: 09-12-2024 End: 12-26-2024 4,500 mg, IntraVENous, at 20 0 mL/hr, Administer over 0.5 Hours, Once, On Key 09/12/24 at 2105, For 1 dose, Mini-Bag Plus bag, Suspected Indication (Select all that apply): Skin and Soft Tissue Infection polyethylene glycol 3350 40282 mg powder for oral solution (20 sources) [...] 17 g by mouth once daily. 10/21/2024 Active microencapsulated potassium chloride 20 meq extended release oral tablet (4 sources) Start: 11-15-2024 End: 11-15-2024 Start: 11-13-2024 End: 11-13-2024 potassium phosphate 155 mg / sodium phosphate, dibasic 852 mg / sodium phosphate, monobasic 130 mg oral tablet (1 source) Start: 12-14-2024 End: 12-14-2024 1000 ml sodium chloride 9 mg/ml injection [...] mL/hr, Administer over 1 Hours, Once, On 11/08/24 at 1720, For 1 dose Start: 10-13-2024 End: 10-15-2024 Start: 10-10-2024 End: 10-11-2024 Start: 09-12-2024 End: 09-12-2024 1,000 mL, IntraVENous, at 1, 000 mL/hr, Administer over 1 Hours, Once, On Key 09/12/24 at 2110, For 1 dose vancomycin (Vancocin) 1,000 mg in sodium chloride 0.9 % 250 mL IVPB (2 sources) Start: 11-09-2024 End: 11-10-2024 take 1000 mg intravenously every twelve hours 1,000 mg, IntraVENous, at 166.7 mL/hr, Administer over 90 Minutes, Every 12 hours, First dose on 11/09/24 at 0500, ADD-Morrill bag, Suspected Indication (Select all that apply): [...] failure, unspecified] Onset: 5 Episodic Administrative/social admission (5 sources) Patient encounter status; Translations: [Other specified counseling] Onset: 5 09-24-2024 Episodic Cancer; other and unspecified primary (1 source) Malignant tumor of lower limb 03-03-2025 Chronic Chronic kidney disease (20 sources) Chronic renal insufficiency; Translations: [Chronic kidney disease, unspecified] Onset: 5 10-15-2024 Chronic Deficiency and other anemia (3 sources) Anemia; Translations: [Anemia, unspecified] Onset: 5 02-04-2025 Episodic Deficiency and other anemia (1 source) Iron deficiency anemia, unspecified; Translations: [Iron deficiency anemia, unspecified] Onset: 5 Episodic Diseases of white blood cells (1 source) Elevated white blood cell count, unspecified; Translations: [Elevated white blood cell count, unspecified] Onset: Chronic Esophageal disorders (3 sources) Gastroesophageal reflux [...] Onset: 5 11-29-2024 Chronic Open wounds of extremities (4 sources) Injury of thigh; Translations: [Unspecified open wound, unspecified thigh, initial encounter] Onset: 5 03-03-2025 Episodic Open wounds of head; neck; and trunk (8 sources) Injury of buttock; Translations: [Unspecified open wound of left buttock, initial encounter] Onset: 4 09-12-2024 Episodic Other aftercare (1 source) Drug therapy finding; 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] 11-27-2024 Episodic Other aftercare (1 source) Long-term current use of drug therapy; Translations: [Encounter for therapeutic drug level monitoring] 03-10-2025 Episodic Other aftercare (2 sources) Encounter for therapeutic drug level monitoring; Translations: [Encounter for therapeutic drug level monitoring] Onset: Episodic Other aftercare (2 sources) superintendent container terminal (current) use of opiate analgesic; Translations: [FCI (current) use of opiate analgesic] Onset: 5 Episodic Other connective tissue disease (1 source) Pain in left lower limb; Translations: [Pain in left leg] 10-20-2024 Episodic Other gastrointestinal disorders (3 sources) Constipation; Translations: [Constipation, unspecified] 09-17-2024 Episodic Other gastrointestinal disorders (3 sources) Drug-induced constipation; Translations: [Drug induced constipation] 11-27-2024 Episodic Other nervous system disorders (6 sources) Pain due to neoplastic disease; Translations: [Neoplasm related pain (acute) (chronic)] 11-27-2024 Chronic Other nervous system disorders (2 sources) Neoplasm related pain (acute) (chronic); Translations: [Neoplasm related pain (acute) (chronic)] Onset: Chronic Other nervous system disorders (2 sources) Unspecified lack of coordination; Translations: [Unspecified lack of coordination] Onset: Episodic Other non-epithelial cancer of skin (20 sources) Squamous cell carcinoma; Translations: [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, including hip] Onset: 5 11-19-2024 Episodic Other nutritional; endocrine; and metabolic disorders (20 sources) Hypercalcemia; Translations: [Hypercalcemia] Onset: 5 11-29-2024 Chronic Other nutritional; endocrine; and metabolic disorders (1 source) Hypercalcemia; Translations: [Hypercalcemia] Onset: 5 Chronic Other skin disorders (1 source) Skin lesion; Translations: [Disorder of the skin and subcutaneous tissue, unspecified] 11-15-2024 Episodic Other skin disorders (3 sources) Hidradenitis suppurativa; Translations: [Hidradenitis suppurativa] Onset: Episodic Other upper respiratory disease (1 source) Rhinitis; Translations: [Chronic rhinitis] 12-19-2024 Chronic Other upper respiratory disease (2 sources) Chronic rhinitis; Translations: [Chronic rhinitis] Onset: 5 Chronic Residual codes; unclassified (2 sources) Insomnia; Translations: [Other insomnia] Onset: 5 03-10-2025 Chronic Residual codes; unclassified (1 source) Other insomnia; Translations: [Other insomnia] Onset: 5 Chronic Residual codes; unclassified (1 source) Postoperative state; Translations: [Other specified postprocedural states] 03-04-2025 Episodic Septicemia (except in labor) (12 sources) Sepsis; Translations: [Sepsis, unspecified organism] Onset: 5 09-12-2024 Episodic Substance-related disorders (5 sources) Smoker; Translations: [Nicotine dependence, unspecified, uncomplicated] Onset: 4 09-17-2024 Chronic Unclassified (1 source) Patient encounter status 09-24-2024 Unclassified (2 sources) OTV; Translations: [OTV] Onset: 5 Unclassified (2 sources) WOUND INFECTION\\HYPOTENSIVE Onset: 5 [...] 11-27-2024 Episodic Other aftercare (2 sources) Other assisted (current) drug therapy; 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] Onset: 11-10-2024 Episodic Other [...] encounter] Onset: 09-13-2024 Episodic Other skin disorders (20 sources) Hidradenitis suppurativa; Translations: [Hidradenitis suppurativa] Onset: 09-12-2024 04-08-2023 Episodic Other skin disorders (2 sources) Disorder of the skin and subcutaneous tissue, unspecified; Translations: [Disorder of the skin and subcutaneous tissue, unspecified] Onset: 11-10-2024 Episodic Skin and subcutaneous tissue infections (20 sources) Abscess; Translations: [Cutaneous abscess, unspecified] Onset: 09-13-2024 10-11-2024 Episodic Viral infection (4 sources) Viral disease; Translations: [Viral infection, unspecified] Onset: 09-13-2024 09-17-2024 Episodic Results Test Name Value Interpretation Reference Range Facility CBC panel Auto (Bld)on 02-17 Erythrocyte distribution width (RBC) [Ratio] 19.9 % High 11.5-14.5 [facility] Comment on above: Performed By: #### 5 8410-2 ####BHANU Treviño ([id number])[facility] ([facility])[address] [place] [address] Hematocrit (Bld) [Volume fraction] 23.6 % Low 41.0-52.0 [facility] Comment on above: Performed By: #### 5 8410-2 ####BHANU Treviño ([id number])[facility] ([facility])[address] [place] [address] Hemoglobin (Bld) [Mass/Vol] 7.4 g/dL Low 13.5-17.5 [facility] Comment on above: Performed By: #### 5 8410-2 ####BHANU Treviño ([id number])[facility] ([facility])[id number] [place] [address] MCH (RBC) [Entitic mass] 24.7 pg Low 26.0-34.0 [facility] Comment on above: Performed By: #### 5 8410-2 ####BHANU Treviño ([id number])[facility] ([facility])[address] [place] [address]57[address] MCHC (RBC) [Mass/Vol] 31.4 g/dL Low 32.0-36.0 [facility] Comment on above: Performed By: #### 5 8410-2 ####BHANU Treviño ([id number])[facility] ([facility])[address] [place] [address]98[address] MCV (RBC) [Entitic vol] 79 fL Low 80-100 [facility] Comment on above: Performed By: #### 5 8410-2 ####BHANU Treviño ([id number])[facility] ([facility])[address] [place] [address] 96284 Nucleated RBC/100 WBC (Bld) [Ratio] 0.0 /100 WBCs Normal 0.0-0.0 [facility] Comment on above: Performed By: #### 5 8410-2 ####BHANU Treviño ([id number])[facility] ([facility])[address] [place] [address]98[address] Platelets (Bld) [#/Vol] 819 x10*3/uL High 150-450 [facility] Comment on above: Performed By: #### 5 8410-2 ####BHANU Treviño ([id number])[facility] ([facility])[address] [place] [address] RBC (Bld) [#/Vol] 2.99 x10*6/uL Low 4.50-5.90 [facility] Comment on above: Performed By: #### 5 8410-2 ####BHANU Treviño ([id number])[facility] ([facility])[address] [place] [address] WBC (Bld) [#/Vol] 12.6 x10*3/uL High 4.4-11.3 [facility] Comment on above: Performed By: #### 5 8410-2 ####BHANU Treviño ([id number])[facility] ([facility])[address] [place] [address] Comprehensive metabolic 2000 panelon 02-17-2025 Albumin BCP dye [Mass/Vol] 2.8 g/dL Low 3.4-5.0 [facility] Comment on above: Performed By: #### 2 4323-8 ####BHANU Treviño ([id number])[facility] ([facility])[address] [place] [address] ALP [Catalytic activity/Vol] 173 U/L High 33-120 [facility] Comment on above: Performed By: #### 2 4323-8 ####BHANU GREGORY L ([id number])[facility] ([facility])[address] [place] [address] ALT With P-5'-P [Catalytic activity/Vol] 26 U/L Normal 10-52 [facility] Comment on above: Result Comment: Sydni ents treated with Sulfasalazine may generate falsely decreased results for ALT. Performed By: #### 2 4323-8 ####BHANU Treviño ([id number])[facility] ([facility])[address] [place] [address] Anion gap [Moles/Vol] 15 mmol/L Normal 10-20 [facility] Comment on above: Performed By: #### 2 4323-8 ####BHANU Treviño ([id number])[facility] ([facility])[address] [place] [address] AST With P-5'-P [Catalytic activity/Vol] 14 U/L Normal 9-39 [facility] Comment on above: Performed By: #### 2 4323-8 ####BHANU Treviño ([id number])[facility] ([facility])[address] [place] [address] Bilirubin [Mass/Vol] 0.3 mg/dL Normal 0.0-1.2 [facility] Comment on above: Performed By: #### 2 4323-8 ####BHANU Treviño ([id number])[facility] ([facility])[address] [place] [address] Calcium [Mass/Vol] 8.4 mg/dL Low 8.6-10.6 [facility] Comment on above: Performed By: #### 2 4323-8 ####BHANU Treviño ([id number])[facility] ([facility])[address] [place] [address] Chloride [Moles/Vol] 101 mmol/L Normal 98-107 [facility] Comment on above: Performed By: #### 2 4323-8 ####BHANU Treviño ([id number])[facility] ([facility])[address] [place] [address] CO2 [Moles/Vol] 27 mmol/L Normal 21-32 [facility] Comment on above: Performed By: #### 2 4323-8 ####BHANU Treviño ([id number])[facility] ([facility])[address] [place] [address] Creatinine [Mass/Vol] 1.23 mg/dL Normal 0.50-1.30 [facility] Comment on above: Performed By: #### 2 4323-8 ####BHANU Treviño ([id number])[facility] ([facility])[address] [place] [address] Glomerular filtration rate/1.73 sq M.predicted 71 mL/min/1.73m*2 Normal >60 [facility] Comment on above: Result Comment: Calc ulations of estimated GFR are performed using the 2020 CKD-EPI Study Refit equation without the race variable for the IDMS-Traceable creatinine methods.https://jasn.asnjournals.org/content/ /ASN.9596246865 Performed By: #### 2 4323-8 ####BHANU Treviño ([id number])[facility] ([facility])[address] [place] [address] Glucose [Mass/Vol] 88 mg/dL Normal 74-99 [facility] Comment on above: Performed By: #### 2 4323-8 ####BHANU GREGORY L ([id number])[facility] ([facility])[address] [place] [address] Potassium [Moles/Vol] 5.1 mmol/L Normal 3.5-5.3 [facility] Comment on above: Performed By: #### 2 4323-8 ####BHANU GREGORY L ([id number])[facility] ([facility])[address] [place] [address] Protein [Mass/Vol] 6.7 g/dL Normal 6.4-8.2 [facility] Comment on above: Performed By: #### 2 4323-8 ####BHANU GREGORY L ([id number])[facility] ([facility])[address] [place] [address] Sodium [Moles/Vol] 138 mmol/L Normal 136-145 [facility] Comment on above: Performed By: #### 2 4323-8 ####BHANU GREGORY L (55064)[facility] ([facility])[address] [place] [address] Urea nitrogen [Mass/Vol] 16 mg/dL Normal 6-23 [facility] Comment on above: Performed By: #### 2 4323-8 ####BHANU Treviño (75690)[facility] ([facility])[address] [place] [address]75 Magnesiumon 02-17-2025 Magnesium [Mass/Vol] 2.01 mg/dL Normal 1.60-2.40 [facility] Comment on above: Performed By: #### 1 9123-9 ####BHANU Treviño ([id number])[facility] ([facility])[address] [place] [address] CBC panel Auto (Bld)on 02-16 Erythrocyte distribution width (RBC) [Ratio] 19.7 % High 11.5-14.5 [facility] Comment on above: Performed By: #### 5 8410-2 ####BHANU Treviño ([id number])[facility] ([facility])[address] [place] [address] Hematocrit (Bld) [Volume fraction] 22.1 % Low 41.0-52.0 [facility] Comment on above: Performed By: #### 5 8410-2 ####BHANU Treviño ([id number])[facility] ([facility])[address] [place] [address]89[address] Hemoglobin (Bld) [Mass/Vol] 7.1 g/dL Low 13.5-17.5 [facility] Comment on above: Performed By: #### 5 8410-2 ####BHANU Treviño ([id number])[facility] ([facility])[address] [place] [address] 69354 MCH (RBC) [Entitic mass] 24.8 pg Low 26.0-34.0 [facility] Comment on above: Performed By: #### 5 8410-2 ####BHANU Treviño (59711)[facility] ([facility])[address] [place] [address] MCHC (RBC) [Mass/Vol] 32.1 g/dL Normal 32.0-36.0 [facility] Comment on above: Performed By: #### 5 8410-2 ####BHANU Treviño ([id number])[facility] ([facility])[address] [place] [address] MCV (RBC) [Entitic vol] 77 fL Low 80-100 [facility] Comment on above: Performed By: #### 5 8410-2 ####BHANU Treviño ([id number])[facility] ([facility])[address] [place] [address] 95675 Nucleated RBC/100 WBC (Bld) [Ratio] 0.0 /100 WBCs Normal 0.0-0.0 [facility] Comment on above: Performed By: #### 5 8410-2 ####BHANU Treviño ([id number])[facility] ([facility])[address] [place] [address] 81711 Platelets (Bld) [#/Vol] 758 x10*3/uL High 150-450 [facility] Comment on above: Performed By: #### 5 8410-2 ####BHANU Treviño ([id number])[facility] ([facility])[address] [place] [address] 55574 RBC (Bld) [#/Vol] 2.86 x10*6/uL Low 4.50-5.90 [facility] Comment on above: Performed By: #### 5 8410-2 ####BHANU Treviño ([id number])[facility] ([facility])[address] [place] [address] WBC (Bld) [#/Vol] 14.1 x10*3/uL High 4.4-11.3 [facility] Comment on above: Performed By: #### 5 8410-2 ####BHANU Treviño ([id number])[facility] ([facility])[id number] [place] [address] 88634 Comprehensive metabolic 2000 panelon 02-16-2025 Albumin BCP dye [Mass/Vol] 2.9 g/dL Low 3.4-5.0 [facility] Comment on above: Performed By: #### 2 4323-8 ####BHANU Treviño ([id number])[facility] ([facility])[address] [place] [address] ALP [Catalytic activity/Vol] 157 U/L High 33-120 [facility] Comment on above: Performed By: #### 2 4323-8 ####BHANU Treviño ([id number])[facility] ([facility])[address] [place] [address] ALT With P-5'-P [Catalytic activity/Vol] 30 U/L Normal 10-52 [facility] Comment on above: Result Comment: Sydni ents treated with Sulfasalazine may generate falsely decreased results for ALT. Performed By: #### 2 4323-8 ####BHANU Treviño ([id number])[facility] ([facility])[address] [place] [address] Anion gap [Moles/Vol] 13 mmol/L Normal 10-20 [facility] Comment on above: Performed By: #### 2 4323-8 ####BHANU Treviño ([id number])[facility] ([facility])[address] [place] [address] AST With P-5'-P [Catalytic activity/Vol] 16 U/L Normal 9-39 [facility] Comment on above: Performed By: #### 2 4323-8 ####BHANU GREGORY L ([id number])[facility] ([facility])[address] [place] [address] Bilirubin [Mass/Vol] 0.3 mg/dL Normal 0.0-1.2 [facility] Comment on above: Performed By: #### 2 4323-8 ####BHANU GREGORY L ([id number])[facility] ([facility])[address] [place] [address] Calcium [Mass/Vol] 8.8 mg/dL Normal 8.6-10.6 [facility] Comment on above: Performed By: #### 2 4323-8 ####BHANU Treviño (53122)[facility] ([facility])[address] [place] [address] Chloride [Moles/Vol] 100 mmol/L Normal 98-107 [facility] Comment on above: Performed By: #### 2 4323-8 ####BHANU Treviño ([id number])[facility] ([facility])[address] [place] [address] CO2 [Moles/Vol] 28 mmol/L Normal 21-32 [facility] Comment on above: Performed By: #### 2 4323-8 ####BHANU Treviño ([id number])[facility] ([facility])[address] [place] [address] Creatinine [Mass/Vol] 1.18 mg/dL Normal 0.50-1.30 [facility] Comment on above: Performed By: #### 2 4323-8 ####BHANU Treviño ([id number])[facility] ([facility])[address] [place] [address] Glomerular filtration rate/1.73 sq M.predicted 75 mL/min/1.73m*2 Normal >60 [facility] Comment on above: Result Comment: Calc ulations of estimated GFR are performed using the 2020 CKD-EPI Study Refit equation without the race variable for the IDMS-Traceable creatinine methods.https://jasn.asnjournals.org/content/ /ASN.0831280129 Performed By: #### 2 4323-8 ####BHANU Treviño ([id number])[facility] ([facility])[address] [place] [address] Glucose [Mass/Vol] 91 mg/dL Normal 74-99 [facility] Comment on above: Performed By: #### 2 4323-8 ####BHANU Treviño (49134)[facility] ([facility])[address] [place] [address] Potassium [Moles/Vol] 4.3 mmol/L Normal 3.5-5.3 [facility] Comment on above: Performed By: #### 2 4323-8 ####BHANU Treviño ([id number])[facility] ([facility])[address] [place] [address] Protein [Mass/Vol] 7.3 g/dL Normal 6.4-8.2 [facility] Comment on above: Performed By: #### 2 4323-8 ####BHANU Treviño ([id number])[facility] ([facility])[address] [place] [address]57[address] Sodium [Moles/Vol] 137 mmol/L Normal 136-145 [facility] Comment on above: Performed By: #### 2 4323-8 ####BHANU Treviño (53420)[facility] ([facility])[address] [place] [address]367 Urea nitrogen [Mass/Vol] 17 mg/dL Normal 6-23 [facility] Comment on above: Performed By: #### 2 4323-8 ####BHANU Treviño (91965)[facility] ([facility])[address] [place] [address] 18646 Magnesiumon 02-16-2025 Magnesium [Mass/Vol] 1.98 mg/dL Normal 1.60-2.40 [facility] Comment on above: Performed By: #### 1 9123-9 ####BHANU Treviño ([id number])[facility] ([facility])[address] [place] [address] 69759 CBC panel Auto (Bld)on 02-15 Erythrocyte distribution width (RBC) [Ratio] 20.0 % High 11.5-14.5 [facility] Comment on above: Performed By: #### 5 8410-2 ####BHANU Treviño ([id number])[facility] ([facility])[address] [place] [address] Hematocrit (Bld) [Volume fraction] 23.6 % Low 41.0-52.0 [facility] Comment on above: Performed By: #### 5 8410-2 ####BHANU Treviño ([id number])[facility] ([facility])[address] [place] [address] Hemoglobin (Bld) [Mass/Vol] 7.5 g/dL Low 13.5-17.5 [facility] Comment on above: Performed By: #### 5 8410-2 ####BHANU Treviño (93892)[facility] ([facility])[address] [place] [address] 43826 MCH (RBC) [Entitic mass] 24.4 pg Low 26.0-34.0 [facility] Comment on above: Performed By: #### 5 8410-2 ####BHANU Treviño ([id number])[facility] ([facility])[address] [place] [address] 28739 MCHC (RBC) [Mass/Vol] 31.8 g/dL Low 32.0-36.0 [facility] Comment on above: Performed By: #### 5 8410-2 ####BHANU Treviño ([id number])[facility] ([facility])[address] [place] [address] MCV (RBC) [Entitic vol] 77 fL Low 80-100 [facility] Comment on above: Performed By: #### 5 8410-2 ####BHANU Treviño ([id number])[facility] ([facility])[address] [place] [address] Nucleated RBC/100 WBC (Bld) [Ratio] 0.0 /100 WBCs Normal 0.0-0.0 [facility] Comment on above: Performed By: #### 5 8410-2 ####BHANU Treviño ([id number])[facility] ([facility])[address] [place] [address] 32001 Platelets (Bld) [#/Vol] 673 x10*3/uL High 150-450 [facility] Comment on above: Performed By: #### 5 8410-2 ####BHANU Treviño (82156)[facility] ([facility])[address] [place] [address] RBC (Bld) [#/Vol] 3.07 x10*6/uL Low 4.50-5.90 [facility] Comment on above: Performed By: #### 5 8410-2 ####BHANU Treviño (86284)[facility] ([facility])[address] [place] [address] WBC (Bld) [#/Vol] 20.2 x10*3/uL High 4.4-11.3 [facility] Comment on above: Performed By: #### 5 8410-2 ####BHANU Treviño ([id number])[facility] ([facility])[address] [place] [address] Comprehensive metabolic 2000 panelon 02-15-2025 Albumin BCP dye [Mass/Vol] 2.6 g/dL Low 3.4-5.0 [facility] Comment on above: Performed By: #### 2 4323-8 ####BHANU Treviño ([id number])[facility] ([facility])[address] [place] [address] ALP [Catalytic activity/Vol] 160 U/L High 33-120 [facility] Comment on above: Performed By: #### 2 4323-8 ####BHANU Treviño ([id number])[facility] ([facility])[address] [place] [address] ALT With P-5'-P [Catalytic activity/Vol] 36 U/L Normal 10-52 [facility] Comment on above: Result Comment: Sydni ents treated with Sulfasalazine may generate falsely decreased results for ALT. Performed By: #### 2 4323-8 ####BHANU Treviño (76461)[facility] ([facility])[address] [place] [address] Anion gap [Moles/Vol] 15 mmol/L Normal 10-20 [facility] Comment on above: Performed By: #### 2 4323-8 ####BHANU Treviño ([id number])[facility] ([facility])[address] [place] [address] AST With P-5'-P [Catalytic activity/Vol] 23 U/L Normal 9-39 [facility] Comment on above: Performed By: #### 2 4323-8 ####BHANU Treviño ([id number])[facility] ([facility])[address] [place] [address] Bilirubin [Mass/Vol] 0.4 mg/dL Normal 0.0-1.2 [facility] Comment on above: Performed By: #### 2 4323-8 ####BHANU Treviño ([id number])[facility] ([facility])[address] [place] [address] Calcium [Mass/Vol] 8.3 mg/dL Low 8.6-10.6 [facility] Comment on above: Performed By: #### 2 4323-8 ####BHANU Treviño (65534)[facility] ([facility])[address] [place] [address] Chloride [Moles/Vol] 100 mmol/L Normal 98-107 [facility] Comment on above: Performed By: #### 2 4323-8 ####BHANU GREGORY L ([id number])[facility] ([facility])[address] [place] [address] CO2 [Moles/Vol] 27 mmol/L Normal 21-32 [facility] Comment on above: Performed By: #### 2 4323-8 ####BHANU Treviño ([id number])[facility] ([facility])[address] [place] [address] Creatinine [Mass/Vol] 1.12 mg/dL Normal 0.50-1.30 [facility] Comment on above: Performed By: #### 2 4323-8 ####BHANU GREGORY L ([id number])[facility] ([facility])[address] [place] [address] Glomerular filtration rate/1.73 sq M.predicted 80 mL/min/1.73m*2 Normal >60 [facility] Comment on above: Result Comment: Calc ulations of estimated GFR are performed using the 2020 CKD-EPI Study Refit equation without the race variable for the IDMS-Traceable creatinine methods.https://jasn.asnjournals.org/content/ /ASN.[email or web address] Performed By: #### 2 4323-8 ####BHANU Treviño ([id number])[facility] ([facility])[address] [place] [address] Glucose [Mass/Vol] 102 mg/dL High 74-99 [facility] Comment on above: Performed By: #### 2 4323-8 ####BHANU GREGORY L ([id number])[facility] ([facility])[address] [place] [address] Potassium [Moles/Vol] 5.1 mmol/L Normal 3.5-5.3 [facility] Comment on above: Performed By: #### 2 4323-8 ####BHANU FLEMINGMOJOSEFA L ([id number])[facility] ([facility])[address] [place] [address] Protein [Mass/Vol] 6.5 g/dL Normal 6.4-8.2 [facility] Comment on above: Performed By: #### 2 4323-8 ####BHANU GREGORY L ([id number])[facility] ([facility])[address] [place] [address] Sodium [Moles/Vol] 137 mmol/L Normal 136-145 [facility] Comment on above: Performed By: #### 2 4323-8 ####BHANU GREGORY L ([id number])[facility] ([facility])[address] [place] [address] Urea nitrogen [Mass/Vol] 16 mg/dL Normal 6-23 [facility] Comment on above: Performed By: #### 2 4323-8 ####BHANU Treviño ([id number])[facility] ([facility])[address] [place] [address] Magnesiumon 02-15-2025 Magnesium [Mass/Vol] 1.81 mg/dL Normal 1.60-2.40 [facility] Comment on above: Performed By: #### 1 9123-9 ####BHANU Treviño ([id number])[facility] ([facility])[address] [place] [address] Basic metabolic 2000 panelon 02-13-2025 Anion gap [Moles/Vol] 16 mmol/L Normal 10-20 [facility] Comment on above: Performed By: #### 2 4321-2 ####BHANU Treviño ([id number])[facility] ([facility])[address] [place] [address] Calcium [Mass/Vol] 8.4 mg/dL Low 8.6-10.6 [facility] Comment on above: Performed By: #### 2 4321-2 ####BHANU Treviño ([id number])[facility] ([facility])[address] [place] [address] Chloride [Moles/Vol] 103 mmol/L Normal 98-107 [facility] Comment on above: Performed By: #### 2 4321-2 ####BHANU Treviño ([id number])[facility] ([facility])[address] [place] [address] CO2 [Moles/Vol] 28 mmol/L Normal 21-32 [facility] Comment on above: Performed By: #### 2 4321-2 ####BHANU Treviño ([id number])[facility] ([facility])[address] [place] [address] Creatinine [Mass/Vol] 1.22 mg/dL Normal 0.50-1.30 [facility] Comment on above: Performed By: #### 2 4321-2 ####BHANU Treviño ([id number])[facility] ([facility])[address] [place] [address] Glomerular filtration rate/1.73 sq M.predicted 72 mL/min/1.73m*2 Normal >60 [facility] Comment on above: Result Comment: Calc ulations of estimated GFR are performed using the 2020 CKD-EPI Study Refit equation without the race variable for the IDMS-Traceable creatinine methods.https://jasn.asnjournals.org/content/ /ASN.8605872843 Performed By: #### 2 4321-2 ####BHANU Treviño ([id number])[facility] ([facility])[address] [place] [address] Glucose [Mass/Vol] 115 mg/dL High 74-99 [facility] Comment on above: Performed By: #### 2 4321-2 ####BHANU GREGORY L ([id number])[facility] ([facility])[address] [place] [address] Potassium [Moles/Vol] 4.9 mmol/L Normal 3.5-5.3 [facility] Comment on above: Performed By: #### 2 4321-2 ####BHANU GREGORY L ([id number])[facility] ([facility])[address] [place] [address] Sodium [Moles/Vol] 142 mmol/L Normal 136-145 [facility] Comment on above: Performed By: #### 2 4321-2 ####BHANU GREGORY L ([id number])[facility] ([facility])[address] [place] [address] Urea nitrogen [Mass/Vol] 16 mg/dL Normal 6-23 [facility] Comment on above: Performed By: #### 2 4321-2 ####BHANU Treviño ([id number])[facility] ([facility])[address] [place] [address] Blood type and Indirect anti body screen panel (Bld)on 02-13-2025 ABO group Nom (Bld) A Normal [facility] Comment on above: Performed By: #### 3 4532-2 ####BHANU Treviño ([id number])[facility] ([facility])[address] [place] [address] Blood group antibody screen Ql Negative [facility] Comment on above: Performed By: #### 3 4532-2 ####BHANU Treviño ([id number])[facility] ([facility])[address] [place] [address] D Ag Ql (Bld) Positive [facility] Comment on above: Performed By: #### 3 4532-2 ####BHANU Treviño ([id number])[facility] ([facility])[address] [place] [address], [place] [address] CBC panel Auto (Bld)on 02-13 Erythrocyte distribution width (RBC) [Ratio] 20.1 % High 11.5-14.5 [facility] Comment on above: Performed By: #### 5 8410-2 ####BHANU Treviño ([id number])[facility] ([facility])[address] [place] [address] Hematocrit (Bld) [Volume fraction] 23.1 % Low 41.0-52.0 [facility] Comment on above: Performed By: #### 5 8410-2 ####BHANU Treviño ([id number])[facility] ([facility])[address] [place] [address] Hemoglobin (Bld) [Mass/Vol] 7.4 g/dL Low 13.5-17.5 [facility] Comment on above: Performed By: #### 5 8410-2 ####BHANU Treviño (59802)[facility] ([facility])[address] [place] [address] MCH (RBC) [Entitic mass] 24.5 pg Low 26.0-34.0 [facility] Comment on above: Performed By: #### 5 8410-2 ####BHANU Treviño (24986)[facility] ([facility])[address] [place] [address] MCHC (RBC) [Mass/Vol] 32.0 g/dL Normal 32.0-36.0 [facility] Comment on above: Performed By: #### 5 8410-2 ####BHANU Treviño (66641)[facility] ([facility])[address] [place] [address] MCV (RBC) [Entitic vol] 77 fL Low 80-100 [facility] Comment on above: Performed By: #### 5 8410-2 ####BHANU Treviño ([id number])[facility] ([facility])[address] [place] [address] Nucleated RBC/100 WBC (Bld) [Ratio] 0.0 /100 WBCs Normal 0.0-0.0 [facility] Comment on above: Performed By: #### 5 8410-2 ####BHANU Treviño ([id number])[facility] ([facility])[address] [place] [address] Platelets (Bld) [#/Vol] 664 x10*3/uL High 150-450 [facility] Comment on above: Performed By: #### 5 8410-2 ####BHANU Treviño ([id number])[facility] ([facility])[address] [place] [address] RBC (Bld) [#/Vol] 3.02 x10*6/uL Low 4.50-5.90 [facility] Comment on above: Performed By: #### 5 8410-2 ####BHANU Treviño ([id number])[facility] ([facility])[address] [place] [address] WBC (Bld) [#/Vol] 9.9 x10*3/uL Normal 4.4-11.3 [facility] Comment on above: Performed By: #### 5 8410-2 ####BHANU Treviño ([id number])[facility] ([facility])[address] [place] [address] Magnesiumon 02-13-2025 Magnesium [Mass/Vol] 1.92 mg/dL Normal 1.60-2.40 [facility] Comment on above: Performed By: #### 1 9123-9 ####BHANU Treviño ([id number])[facility] ([facility])[address] [place] [address] PT and aPTT panel Coag (PPP) on 02-13-2025 aPTT Coag (PPP) [Time] 31 s Normal 26-36 [facility] Comment on above: Order Comment: The A PTT is no longer used for monitoring Unfractionated Heparin Therapy. For monitoring Heparin Therapy, use the Heparin Assay. Performed By: #### 3 4529-8 ####BHANU Treviño ([id number])[facility] ([facility])[address] [place] [address] INR Coag (PPP) [Relative time] 1.2 High 0.9-1.1 [facility] Comment on above: Order Comment: The A PTT is no longer used for monitoring Unfractionated Heparin Therapy. For monitoring Heparin Therapy, use the Heparin Assay. Performed By: #### 3 4529-8 ####BHANU Treviño (38339)[facility] ([facility])[address] [place] [address] PT Coag (PPP) [Time] 12.9 s High 9.8-12.4 [facility] Comment on above: Order Comment: The A PTT is no longer used for monitoring Unfractionated Heparin Therapy. For monitoring Heparin Therapy, use the Heparin Assay. Performed By: #### 3 4529-8 ####BHANU Treviño ([id number])[facility] ([facility])[address] [place] [address] CBC panel Auto (Bld)on 02-12 Erythrocyte distribution width (RBC) [Ratio] 19.8 % High 11.5-14.5 [facility] Comment on above: Performed By: #### 5 8410-2 ####BHANU Treviño (49989)[facility] ([facility])[address] [place] [address] Hematocrit (Bld) [Volume fraction] 22.9 % Low 41.0-52.0 [facility] Comment on above: Performed By: #### 5 8410-2 ####BHANU Treviño (88229)[facility] ([facility])[address] [place] [address] Hemoglobin (Bld) [Mass/Vol] 7.4 g/dL Low 13.5-17.5 [facility] Comment on above: Performed By: #### 5 8410-2 ####BHANU Treviño (59076)[facility] ([facility])[address]672 [place] [address] MCH (RBC) [Entitic mass] 24.6 pg Low 26.0-34.0 [facility] Comment on above: Performed By: #### 5 8410-2 ####BHANU Treviño (91124)[facility] ([facility])[address] [place] [address] MCHC (RBC) [Mass/Vol] 32.3 g/dL Normal 32.0-36.0 [facility] Comment on above: Performed By: #### 5 8410-2 ####BHANU Treviño (90984)[facility] ([facility])[address] [place] [address] MCV (RBC) [Entitic vol] 76 fL Low 80-100 [facility] Comment on above: Performed By: #### 5 8410-2 ####BHANU Treviño ([id number])[facility] ([facility])[address]141 [place] [address] Nucleated RBC/100 WBC (Bld) [Ratio] 0.0 /100 WBCs Normal 0.0-0.0 [facility] Comment on above: Performed By: #### 5 8410-2 ####BHANU Treviño ([id number])[facility] ([facility])[address] [place] [address] Platelets (Bld) [#/Vol] 664 x10*3/uL High 150-450 [facility] Comment on above: Performed By: #### 5 8410-2 ####BHANU Treviño (05603)[facility] ([facility])[address] [place] [address] RBC (Bld) [#/Vol] 3.01 x10*6/uL Low 4.50-5.90 [facility] Comment on above: Performed By: #### 5 8410-2 ####BHANU Treviño ([id number])[facility] ([facility])[address] [place] [address] WBC (Bld) [#/Vol] 9.2 x10*3/uL Normal 4.4-11.3 [facility] Comment on above: Performed By: #### 5 8410-2 ####BHANU Treviño (73640)[facility] ([facility])[address] [place] [address] Comprehensive metabolic 2000 panelon 02-12-2025 Albumin BCP dye [Mass/Vol] 2.6 g/dL Low 3.4-5.0 [facility] Comment on above: Performed By: #### 2 4323-8 ####BHANU Treviño ([id number])[facility] ([facility])[address] [place] [address] ALP [Catalytic activity/Vol] 107 U/L Normal 33-120 [facility] Comment on above: Performed By: #### 2 4323-8 ####BHANU Treviño (79450)[facility] ([facility])[address] [place] [address] ALT With P-5'-P [Catalytic activity/Vol] 15 U/L Normal 10-52 [facility] Comment on above: Result Comment: Sydni ents treated with Sulfasalazine may generate falsely decreased results for ALT. Performed By: #### 2 4323-8 ####BHANU Treviño (59068)[facility] ([facility])[address] [facility] [place] [address] Anion gap [Moles/Vol] 14 mmol/L Normal 10-20 [facility] Comment on above: Performed By: #### 2 4323-8 ####BHANU Treviño (76069)[facility] ([facility])[address] [place] [address] AST With P-5'-P [Catalytic activity/Vol] 14 U/L Normal 9-39 [facility] Comment on above: Performed By: #### 2 4323-8 ####BHANU Treviño ([id number])[facility] ([facility])[address] [place] [address] Bilirubin [Mass/Vol] 0.3 mg/dL Normal 0.0-1.2 [facility] Comment on above: Performed By: #### 2 4323-8 ####BHANU Treviño (62903)[facility] ([facility])[address]27 [place] [address] Calcium [Mass/Vol] 8.4 mg/dL Low 8.6-10.6 [facility] Comment on above: Performed By: #### 2 4323-8 ####BHANU Treviño (67340)[facility] ([facility])[address] [place] [address] Chloride [Moles/Vol] 101 mmol/L Normal 98-107 [facility] Comment on above: Performed By: #### 2 4323-8 ####BHANU Treviño (52666)[facility] ([facility])[address]353 [place] [address] CO2 [Moles/Vol] 28 mmol/L Normal 21-32 [facility] Comment on above: Performed By: #### 2 4323-8 ####BHANU Treviño (45807)[facility] ([facility])[address] [place] [address] Creatinine [Mass/Vol] 1.08 mg/dL Normal 0.50-1.30 [facility] Comment on above: Performed By: #### 2 4323-8 ####BHANU GREGORY L ([id number])[facility] ([facility])[address] [place] [address] Glomerular filtration rate/1.73 sq M.predicted 83 mL/min/1.73m*2 Normal >60 [facility] Comment on above: Result Comment: Calc ulations of estimated GFR are performed using the 2020 CKD-EPI Study Refit equation without the race variable for the IDMS-Traceable creatinine methods.https://jasn.asnjournals.org/content/early /ASN.0451414136 Performed By: #### 2 4323-8 ####BHANU GREGORY L ([id number])[facility] ([facility])[address]25 [place] [address] Glucose [Mass/Vol] 114 mg/dL High 74-99 [facility] Comment on above: Performed By: #### 2 4323-8 ####BHANU GREGORY L (45484)[facility] ([facility])[address]227 [place] [address] Potassium [Moles/Vol] 5.2 mmol/L Normal 3.5-5.3 [facility] Comment on above: Performed By: #### 2 4323-8 ####BHANU GREGORY L (75825)[facility] ([facility])[address]37 [place] [address] Protein [Mass/Vol] 7.1 g/dL Normal 6.4-8.2 [facility] Comment on above: Performed By: #### 2 4323-8 ####BHANU GREGORY L ([id number])[facility] ([facility])[address]280 [place] [address] Sodium [Moles/Vol] 138 mmol/L Normal 136-145 [facility] Comment on above: Performed By: #### 2 4323-8 ####BHANU Treviño (74827)[facility] ([facility])[address]262 [place] [address] Urea nitrogen [Mass/Vol] 14 mg/dL Normal 6-23 [facility] Comment on above: Performed By: #### 2 4323-8 ####BHANU Treviño (22354)[facility] ([facility])[address] [place] [address] Magnesiumon 02-12-2025 Magnesium [Mass/Vol] 2.03 mg/dL Normal 1.60-2.40 [facility] Comment on above: Performed By: #### 1 9123-9 ####BHANU Treviño (77903)[facility] ([facility])[address] [place] [address] Basic metabolic 2000 panelon 02-11-2025 Anion gap [Moles/Vol] 14 mmol/L Normal 10-20 [facility] Comment on above: Performed By: #### 2 4321-2 ####BHANU Treviño ([id number])[facility] ([facility])[address] [place] [address] Calcium [Mass/Vol] 9.1 mg/dL Normal 8.6-10.6 [facility] Comment on above: Performed By: #### 2 4321-2 ####BHANU Treviño (48656)[facility] ([facility])[address] [place] [address] Chloride [Moles/Vol] 100 mmol/L Normal 98-107 [facility] Comment on above: Performed By: #### 2 4321-2 ####BHANU Treviño (87489)[facility] ([facility])[address] [place] [address] CO2 [Moles/Vol] 29 mmol/L Normal 21-32 [facility] Comment on above: Performed By: #### 2 4321-2 ####BHANU Treviño (50339)[facility] ([facility])[address]107 [place] [address] Creatinine [Mass/Vol] 1.13 mg/dL Normal 0.50-1.30 [facility] Comment on above: Performed By: #### 2 4321-2 ####BHANU Treviño (31801)[facility] ([facility])[address] [place] [address] Glomerular filtration rate/1.73 sq M.predicted 79 mL/min/1.73m*2 Normal >60 [facility] Comment on above: Result Comment: Calc ulations of estimated GFR are performed using the 2020 CKD-EPI Study Refit equation without the race variable for the IDMS-Traceable creatinine methods.https://jasn.asnjournals.org/content/early/ /ASN.9288143863 Performed By: #### 2 4321-2 ####BHANU Treviño ([id number])[facility] ([facility])[address]43 [place] [address] Glucose [Mass/Vol] 108 mg/dL High 74-99 [facility] Comment on above: Performed By: #### 2 4321-2 ####BHANU Treviño (23997)[facility] ([facility])[address]121 [place] [address] Potassium [Moles/Vol] 4.6 mmol/L Normal 3.5-5.3 [facility] Comment on above: Performed By: #### 2 4321-2 ####BHANU GREGORY L (55158)[facility] ([facility])[address]324 [place] [address] Sodium [Moles/Vol] 138 mmol/L Normal 136-145 [facility] Comment on above: Performed By: #### 2 4321-2 ####BHANU Treviño (82731)[facility] ([facility])[address] [place] [address] Urea nitrogen [Mass/Vol] 16 mg/dL Normal 6-23 [facility] Comment on above: Performed By: #### 2 4321-2 ####BHANU Treviño (02292)[facility] ([facility])[address] [place] [address] CBC panel Auto (Bld)on 02-11 Erythrocyte distribution width (RBC) [Ratio] 20.0 % High 11.5-14.5 [facility] Comment on above: Performed By: #### 5 8410-2 ####BHANU Treviño (35260)[facility] ([facility])[address] [place] [address] Hematocrit (Bld) [Volume fraction] 24.7 % Low 41.0-52.0 [facility] Comment on above: Performed By: #### 5 8410-2 ####BHANU Treviño ([id number])[facility] ([facility])[address] [place] [address] Hemoglobin (Bld) [Mass/Vol] 8.1 g/dL Low 13.5-17.5 [facility] Comment on above: Performed By: #### 5 8410-2 ####BHANU Treviño (16117)[facility] ([facility])[address] [place] [address] 23286 MCH (RBC) [Entitic mass] 25.1 pg Low 26.0-34.0 [facility] Comment on above: Performed By: #### 5 8410-2 ####BHANU Treviño (48235)[facility] ([facility])[address] [place] [address] MCHC (RBC) [Mass/Vol] 32.8 g/dL Normal 32.0-36.0 [facility] Comment on above: Performed By: #### 5 8410-2 ####BHANU Treviño (68898)[facility] ([facility])[address] [place] [address] MCV (RBC) [Entitic vol] 77 fL Low 80-100 [facility] Comment on above: Performed By: #### 5 8410-2 ####BHANU Treviño (10286)[facility] ([facility])[address]704 [place] [address] Nucleated RBC/100 WBC (Bld) [Ratio] 0.0 /100 WBCs Normal 0.0-0.0 [facility] Comment on above: Performed By: #### 5 8410-2 ####BHANU Treviño (60690)[facility] ([facility])[address]856 [place] [address] Platelets (Bld) [#/Vol] 667 x10*3/uL High 150-450 [facility] Comment on above: Performed By: #### 5 8410-2 ####BHANU Treviño (86513)[facility] ([facility])[address] [place] [address] RBC (Bld) [#/Vol] 3.23 x10*6/uL Low 4.50-5.90 [facility] Comment on above: Performed By: #### 5 8410-2 ####BHANU Treviño ([id number])[facility] ([facility])[address] [place] [address] WBC (Bld) [#/Vol] 11.6 x10*3/uL High 4.4-11.3 [facility] Comment on above: Performed By: #### 5 8410-2 ####BHANU Treviño ([id number])[facility] ([facility])[address] [place] [address] Magnesiumon 02-11-2025 Magnesium [Mass/Vol] 1.70 mg/dL Normal 1.60-2.40 [facility] Comment on above: Performed By: #### 1 9123-9 ####BHANU Treviño ([id number])[facility] ([facility])[id number] [place] [address] PT and aPTT panel Coag (PPP) on 02-11-2025 aPTT Coag (PPP) [Time] 35 s Normal 26-36 [facility] Comment on above: Order Comment: The A PTT is no longer used for monitoring Unfractionated Heparin Therapy. For monitoring Heparin Therapy, use the Heparin Assay. Performed By: #### 3 4529-8 ####BHANU Treviño ([id number])[facility] ([facility])[id number] [place] [address] INR Coag (PPP) [Relative time] 1.3 High 0.9-1.1 [facility] Comment on above: Order Comment: The A PTT is no longer used for monitoring Unfractionated Heparin Therapy. For monitoring Heparin Therapy, use the Heparin Assay. Performed By: #### 3 4529-8 ####BHANU Treviño ([id number])[facility] ([facility])[address] [place], [place] [id number] PT Coag (PPP) [Time] 14.2 s High 9.8-12.4 [facility] Comment on above: Order Comment: The A PTT is no longer used for monitoring Unfractionated Heparin Therapy. For monitoring Heparin Therapy, use the Heparin Assay. Performed By: #### 3 4529-8 ####BHANU Treviño ([id number])[facility] ([facility])[id number] [place] [address] Blood type and Indirect anti body screen panel (Bld)on 02-10-2025 ABO group Nom (Bld) A Normal [facility] Comment on above: Performed By: #### 3 4532-2 ####BHANU Treviño ([id number])[facility] [facility] ([facility])[id number] [place] [address] 67140 Blood group antibody screen [facility] Comment on above: Performed By: #### 3 4532-2 ####BHANU Treviño ([id number])[facility] ([facility])[address] [place] [address] 93923 D Ag Ql (Bld) Positive Normal [facility] Comment on above: Performed By: #### 3 4532-2 ####BHANU Treviño ([id number])[facility] ([facility])[address] [place] [address] 79834 CBC panel Auto (Bld)on 02-10 Erythrocyte distribution width (RBC) [Ratio] 20.0 % High 11.5-14.5 [facility] Comment on above: Performed By: #### 5 8410-2 ####BHANU Treviño ([id number])[facility] ([facility])[address] [place] [address] Hematocrit (Bld) [Volume fraction] 24.6 % Low 41.0-52.0 [facility] Comment on above: Performed By: #### 5 8410-2 ####BHANU Treviño ([id number])[facility] ([facility])[address] [place] [address] Hemoglobin (Bld) [Mass/Vol] 8.0 g/dL Low 13.5-17.5 [facility] Comment on above: Performed By: #### 5 8410-2 ####BHANU Treviño ([id number])[facility] ([facility])[address] [place] [address] MCH (RBC) [Entitic mass] 25.0 pg Low 26.0-34.0 [facility] Comment on above: Performed By: #### 5 8410-2 ####BHANU Treviño ([id number])[facility] ([facility])[id number] [place] [address] MCHC (RBC) [Mass/Vol] 32.5 g/dL Normal 32.0-36.0 [facility] Comment on above: Performed By: #### 5 8410-2 ####BHANU Treviño ([id number])[facility] ([facility])[address] [place] [address] MCV (RBC) [Entitic vol] 77 fL Low 80-100 [facility] Comment on above: Performed By: #### 5 8410-2 ####BHANU Treviño ([id number])[facility] ([facility])[address] [place] [address] Nucleated RBC/100 WBC (Bld) [Ratio] 0.0 /100 WBCs Normal 0.0-0.0 [facility] Comment on above: Performed By: #### 5 8410-2 ####BHANU Treviño ([id number])[facility] ([facility])[address] [place] [address] 33590 Platelets (Bld) [#/Vol] 593 x10*3/uL High 150-450 [facility] Comment on above: Performed By: #### 5 8410-2 ####BHANU Treviño ([id number])[facility] ([facility])[address] [place] [address] 80162 RBC (Bld) [#/Vol] 3.20 x10*6/uL Low 4.50-5.90 [facility] Comment on above: Performed By: #### 5 8410-2 ####BHANU Treviño ([id number])[facility] ([facility])[address] [place] [address] 84228 WBC (Bld) [#/Vol] 10.6 x10*3/uL Normal 4.4-11.3 [facility] Comment on above: Performed By: #### 5 8410-2 ####BHANU Treviño ([id number])[facility] ([facility])[address] [place] [address] 06557 Basic metabolic 2000 panelon 02-08-2025 Anion gap [Moles/Vol] 13 mmol/L Normal 10-20 [facility] Comment on above: Performed By: #### 2 4321-2 ####BHANU Treviño ([id number])[facility] ([facility])[address] [place] [address] Calcium [Mass/Vol] 8.3 mg/dL Low 8.6-10.6 [facility] Comment on above: Performed By: #### 2 4321-2 ####BHANU LAUREANOTZER L ([id number])[facility] ([facility])[address] [place] [address] Chloride [Moles/Vol] 105 mmol/L Normal 98-107 [facility] Comment on above: Performed By: #### 2 4321-2 ####BHANU FLEMINGMOTZER L ([id number])[facility] ([facility])[address] [place] [address] CO2 [Moles/Vol] 27 mmol/L Normal 21-32 [facility] Comment on above: Performed By: #### 2 4321-2 ####BHANU SCHMOTZER L ([id number])[facility] ([facility])[address]86 [place] [address] Creatinine [Mass/Vol] 1.11 mg/dL Normal 0.50-1.30 [facility] Comment on above: Performed By: #### 2 4321-2 ####BHANU FLEMINGMOTZER L (97325)[facility] ([facility])[address] [place] [address] Glomerular filtration rate/1.73 sq M.predicted 80 mL/min/1.73m*2 Normal >60 [facility] Comment on above: Result Comment: Calc ulations of estimated GFR are performed using the 2020 CKD-EPI Study Refit equation without the race variable for the IDMS-Traceable creatinine methods.https://jasn.asnjournals.org/content/early/ /ASN.4161999743 Performed By: #### 2 4321-2 ####BHANU FLEMINGMOTZER L ([id number])[facility] ([facility])[address] [place] [address] Glucose [Mass/Vol] 124 mg/dL High 74-99 [facility] Comment on above: Performed By: #### 2 4321-2 ####BHANU FLEMINGMOTZER L (94554)[facility] ([facility])[address] [place] [address] Potassium [Moles/Vol] 4.8 mmol/L Normal 3.5-5.3 [facility] Comment on above: Performed By: #### 2 4321-2 ####BHANU Treviño ([id number])[facility] ([facility])[address] [place] [address] Sodium [Moles/Vol] 140 mmol/L Normal 136-145 [facility] Comment on above: Performed By: #### 2 4321-2 ####BHANU Treviño ([id number])[facility] ([facility])[address] [place] [address] Urea nitrogen [Mass/Vol] 16 mg/dL Normal 6-23 [facility] Comment on above: Performed By: #### 2 4321-2 ####BHANU Treviño (56904)[facility] ([facility])[address] [place] [address] CBC panel Auto (Bld)on 02-08 Erythrocyte distribution width (RBC) [Ratio] 20.5 % High 11.5-14.5 [facility] Comment on above: Performed By: #### 5 8410-2 ####BHANU Treviño ([id number])[facility] ([facility])[address]299 [place] [address] Hematocrit (Bld) [Volume fraction] 25.2 % Low 41.0-52.0 [facility] Comment on above: Performed By: #### 5 8410-2 ####BHANU Treviño (65903)[facility] ([facility])[address]35 [place] [address] Hemoglobin (Bld) [Mass/Vol] 8.0 g/dL Low 13.5-17.5 [facility] Comment on above: Performed By: #### 5 8410-2 ####BHANU Treviño ([id number])[facility] ([facility])[address]88 [place] [address] MCH (RBC) [Entitic mass] 25.1 pg Low 26.0-34.0 [facility] Comment on above: Performed By: #### 5 8410-2 ####BHANU Treviño (19957)[facility] ([facility])[address] [place] [address] MCHC (RBC) [Mass/Vol] 31.7 g/dL Low 32.0-36.0 [facility] Comment on above: Performed By: #### 5 8410-2 ####BHANU Treviño ([id number])[facility] ([facility])[address] [place] [address] 20413 MCV (RBC) [Entitic vol] 79 fL Low 80-100 [facility] Comment on above: Performed By: #### 5 8410-2 ####BHANU Treviño (43702)[facility] ([facility])[address] [place] [address] 77233 Nucleated RBC/100 WBC (Bld) [Ratio] 0.0 /100 WBCs Normal 0.0-0.0 [facility] Comment on above: Performed By: #### 5 8410-2 ####BHANU Treviño ([id number])[facility] ([facility])[address] [place] [address] Platelets (Bld) [#/Vol] 463 x10*3/uL High 150-450 [facility] Comment on above: Performed By: #### 5 8410-2 ####BHANU Treviño ([id number])[facility] ([facility])[address]66 [place] [address] RBC (Bld) [#/Vol] 3.19 x10*6/uL Low 4.50-5.90 [facility] Comment on above: Performed By: #### 5 8410-2 ####BHANU Treviño (83760)[facility] ([facility])[address] [place] [address] WBC (Bld) [#/Vol] 10.0 x10*3/uL Normal 4.4-11.3 [facility] Comment on above: Performed By: #### 5 8410-2 ####BHANU GREGORY L ([id number])[facility] ([facility])[address]42 [place] [address] Basic metabolic 2000 panelon 02-07-2025 Anion gap [Moles/Vol] 15 mmol/L Normal 10-20 [facility] Comment on above: Performed By: #### 2 4321-2 ####BHANU GREGORY L ([id number])[facility] ([facility])[address] [place] [address] Calcium [Mass/Vol] 8.4 mg/dL Low 8.6-10.6 [facility] Comment on above: Performed By: #### 2 4321-2 ####BHANU GREGORY L (63071)[facility] ([facility])[address]473 [place] [address] Chloride [Moles/Vol] 106 mmol/L Normal 98-107 [facility] Comment on above: Performed By: #### 2 4321-2 ####BHANU FLEMINGMOJOSEFA L ([id number])[facility] ([facility])[address]58 [place] [address] CO2 [Moles/Vol] 24 mmol/L Normal 21-32 [facility] Comment on above: Performed By: #### 2 4321-2 ####BHANU GREGORY L (13103)[facility] ([facility])[address]47 [place] [address] Creatinine [Mass/Vol] 1.09 mg/dL Normal 0.50-1.30 [facility] Comment on above: Performed By: #### 2 4321-2 ####BHANU GREGORY L ([id number])[facility] ([facility])[address]196 [place] [address] Glomerular filtration rate/1.73 sq M.predicted 82 mL/min/1.73m*2 Normal >60 [facility] Comment on above: Result Comment: Calc ulations of estimated GFR are performed using the 2021 CKD-EPI Study Refit equation without the race variable for the IDMS-Traceable creatinine methods.https://jasn.asnjournals.org/content/ /ASN.0805381540 Performed By: #### 2 4321-2 ####BHANU Treviño (93606)[facility] ([facility])[address]38 [place] [address] Glucose [Mass/Vol] 110 mg/dL High 74-99 [facility] Comment on above: Performed By: #### 2 4321-2 ####BHANU Treviño (32824)[facility] ([facility])[address] [place] [address] Potassium [Moles/Vol] 4.7 mmol/L Normal 3.5-5.3 [facility] Comment on above: Performed By: #### 2 4321-2 ####BHANU Treviño (93709)[facility] ([facility])[address] [place] [address] Sodium [Moles/Vol] 140 mmol/L Normal 136-145 [facility] Comment on above: Performed By: #### 2 4321-2 ####BHANU Treviño (20560)[facility] ([facility])[address] [place] [address] Urea nitrogen [Mass/Vol] 18 mg/dL Normal 6-23 [facility] Comment on above: Performed By: #### 2 4321-2 ####BHANU Treviño (67083)[facility] ([facility])[address]41 [place] [address] CBC panel Auto (Bld)on 02-07 Erythrocyte distribution width (RBC) [Ratio] 20.4 % High 11.5-14.5 [facility] Comment on above: Performed By: #### 5 8410-2 ####BHANU GREGORY L (98584)[facility] ([facility])[address]34 [place] [address] Hematocrit (Bld) [Volume fraction] 27.2 % Low 41.0-52.0 [facility] Comment on above: Performed By: #### 5 8410-2 ####BHANU Treviño (17276)[facility] ([facility])[address]310 [place] [address] Hemoglobin (Bld) [Mass/Vol] 9.0 g/dL Low 13.5-17.5 [facility] Comment on above: Performed By: #### 5 8410-2 ####BHANU Treviño (60657)[facility] ([facility])[address]28 [place] [address] MCH (RBC) [Entitic mass] 25.6 pg Low 26.0-34.0 [facility] Comment on above: Performed By: #### 5 8410-2 ####BHANU Treviño (31398)[facility] ([facility])[address]12 [place] [address] MCHC (RBC) [Mass/Vol] 33.1 g/dL Normal 32.0-36.0 [facility] Comment on above: Performed By: #### 5 8410-2 ####BHANU Treviño (19674)[facility] ([facility])[address]35 [place] [address] MCV (RBC) [Entitic vol] 77 fL Low 80-100 [facility] Comment on above: Performed By: #### 5 8410-2 ####BHANU Treviño (09970)[facility] ([facility])[address]38 [place] [address] Nucleated RBC/100 WBC (Bld) [Ratio] 0.0 /100 WBCs Normal 0.0-0.0 [facility] Comment on above: Performed By: #### 5 8410-2 ####BHANU Treviño (96839)[facility] ([facility])[address]653 [place] [address] Platelets (Bld) [#/Vol] 483 x10*3/uL High 150-450 [facility] Comment on above: Performed By: #### 5 8410-2 ####BHANU Treviño (10358)[facility] ([facility])[address]28 [place] [address] RBC (Bld) [#/Vol] 3.52 x10*6/uL Low 4.50-5.90 [facility] Comment on above: Performed By: #### 5 8410-2 ####BHANU Treviño (04108)[facility] ([facility])[address]223 [place] [address] WBC (Bld) [#/Vol] 9.2 x10*3/uL Normal 4.4-11.3 [facility] Comment on above: Performed By: #### 5 8410-2 ####BHANU Treviño (16140)[facility] ([facility])[address]356 [place] [address] Magnesiumon 02-07-2025 Magnesium [Mass/Vol] 2.05 mg/dL Normal 1.60-2.40 [facility] Comment on above: Performed By: #### 1 9123-9 ####BHANU Treviño (13554)[facility] ([facility])[address]678 [place] [address] Basic metabolic 2000 panelon 02-06-2025 Anion gap [Moles/Vol] 12 mmol/L Normal 10-20 [facility] Comment on above: Performed By: #### 2 4321-2 ####BHANU Treviño ([id number])[facility] ([facility])[address]1956 [place] [address] Calcium [Mass/Vol] 8.1 mg/dL Low 8.6-10.6 [facility] Comment on above: Performed By: #### 2 4321-2 ####BHANU Treviño (70205)[facility] ([facility])[address]345 [place] [address] Chloride [Moles/Vol] 106 mmol/L Normal 98-107 [facility] Comment on above: Performed By: #### 2 4321-2 ####BHANU GREGORY L (59357)[facility] ([facility])[address]226 [place] [address] CO2 [Moles/Vol] 28 mmol/L Normal 21-32 [facility] Comment on above: Performed By: #### 2 4321-2 ####BHANU LAUREANOTZER L (75931)[facility] ([facility])74683 [place] [address] Creatinine [Mass/Vol] 1.22 mg/dL Normal 0.50-1.30 [facility] Comment on above: Performed By: #### 2 4321-2 ####BHANU LAUREANOTZALANNA L (26155)[facility] ([facility])[address] [place] [address] 33468 Glomerular filtration rate/1.73 sq M.predicted 72 mL/min/1.73m*2 Normal >60 [facility] Comment on above: Result Comment: Calc ulations of estimated GFR are performed using the 2020 CKD-EPI Study Refit equation without the race variable for the IDMS-Traceable creatinine methods.https://jasn.asnjournals.org/content/ /ASN.2490042332 Performed By: #### 2 4321-2 ####BHANU GREGORY L (65447)[facility] ([facility])[address]1957 [place] [address] Glucose [Mass/Vol] 98 mg/dL Normal 74-99 [facility] Comment on above: Performed By: #### 2 4321-2 ####BHANU LAUREANOTZER L (59746)[facility] ([facility])[address]754 [place] [address] Potassium [Moles/Vol] 4.5 mmol/L Normal 3.5-5.3 [facility] Comment on above: Performed By: #### 2 4321-2 ####BHANU FLEMINGMOTZER L (17155)[facility] ([facility])[address]881 [place] [address] Sodium [Moles/Vol] 141 mmol/L Normal 136-145 [facility] Comment on above: Performed By: #### 2 4321-2 ####BHANU Treviño (68654)[facility] ([facility])[address]26 [place] [address] Urea nitrogen [Mass/Vol] 15 mg/dL Normal 6-23 [facility] Comment on above: Performed By: #### 2 4321-2 ####BHANU Treviño (61417)[facility] ([facility])[address] [place] [address] 635[address] CBC panel Auto (Bld)on 02-06 Erythrocyte distribution width (RBC) [Ratio] 20.2 % High 11.5-14.5 [facility] Comment on above: Performed By: #### 5 8410-2 ####BHANU Treviño (28919)[facility] ([facility])[address] [place] [address]160 Hematocrit (Bld) [Volume fraction] 26.1 % Low 41.0-52.0 [facility] Comment on above: Performed By: #### 5 8410-2 ####BHANU Treviño (18782)[facility] ([facility])[address] [place] [address]288 Hemoglobin (Bld) [Mass/Vol] 8.4 g/dL Low 13.5-17.5 [facility] Comment on above: Performed By: #### 5 8410-2 ####BHANU Treviño (66908)[facility] ([facility])[address] [place] [address] 42761 MCH (RBC) [Entitic mass] 25.1 pg Low 26.0-34.0 [facility] Comment on above: Performed By: #### 5 8410-2 ####BHANU Treviño (46126)[facility] ([facility])[address]443 [place] [address] MCHC (RBC) [Mass/Vol] 32.2 g/dL Normal 32.0-36.0 [facility] Comment on above: Performed By: #### 5 8410-2 ####BHANU Treviño (50087)[facility] ([facility])[address]165 [place] [address] MCV (RBC) [Entitic vol] 78 fL Low 80-100 [facility] Comment on above: Performed By: #### 5 8410-2 ####BHANU Treviño (62442)[facility] ([facility])[address] [place] [address] 46378 Nucleated RBC/100 WBC (Bld) [Ratio] 0.0 /100 WBCs Normal 0.0-0.0 [facility] Comment on above: Performed By: #### 5 8410-2 ####BHANU Treviño ([id number])[facility] ([facility])[address] [place] [address] 13813 Platelets (Bld) [#/Vol] 426 x10*3/uL Normal 150-450 [facility] Comment on above: Performed By: #### 5 8410-2 ####BHANU Treviño (01361)[facility] ([facility])[address] [place] [address] 78345 RBC (Bld) [#/Vol] 3.34 x10*6/uL Low 4.50-5.90 [facility] Comment on above: Performed By: #### 5 8410-2 ####BHANU Treviño (83543)[facility] ([facility])[address] [place] [address] 60983 WBC (Bld) [#/Vol] 9.4 x10*3/uL Normal 4.4-11.3 [facility] Comment on above: Performed By: #### 5 8410-2 ####BHANU Treviño (89353)[facility] ([facility])[address]93 [place] [address] Magnesiumon 02-06-2025 Magnesium [Mass/Vol] 2.21 mg/dL Normal 1.60-2.40 [facility] Comment on above: Performed By: #### 1 9123-9 ####BHANU Treviño (52896)[facility] ([facility])[address] [place] [address] CBC panel Auto (Bld)on 02-05 Erythrocyte distribution width (RBC) [Ratio] 19.9 % High 11.5-14.5 [facility] Comment on above: Performed By: #### 5 8410-2 ####BHANU Treviño ([id number])[facility] ([facility])[id number] [place] [address] 86219 Hematocrit (Bld) [Volume fraction] 26.4 % Low 41.0-52.0 [facility] Comment on above: Performed By: #### 5 8410-2 ####BHANU Treviño ([id number])[facility] ([facility])[id number] [place] [address] 40704 Hemoglobin (Bld) [Mass/Vol] 8.4 g/dL Low 13.5-17.5 [facility] Comment on above: Performed By: #### 5 8410-2 ####BHANU Treviño ([id number])[facility] ([facility])[id number] [place] [address] 34009 MCH (RBC) [Entitic mass] 24.6 pg Low 26.0-34.0 [facility] Comment on above: Performed By: #### 5 8410-2 ####BHANU Treviño ([id number])[facility] ([facility])[id number] [place] [address] 90248 MCHC (RBC) [Mass/Vol] 31.8 g/dL Low 32.0-36.0 [facility] Comment on above: Performed By: #### 5 8410-2 ####BHANU Treviño ([id number])[facility] ([facility])[address] [place] [address] MCV (RBC) [Entitic vol] 77 fL Low 80-100 [facility] Comment on above: Performed By: #### 5 8410-2 ####BHANU Treviño ([id number])[facility] ([facility])[id number] [place] [address] 55484 Nucleated RBC/100 WBC (Bld) [Ratio] 0.0 /100 WBCs Normal 0.0-0.0 [facility] Comment on above: Performed By: #### 5 8410-2 ####BHANU Treviño ([id number])[facility] ([facility])[id number] [place] [address] 57462 Platelets (Bld) [#/Vol] 399 x10*3/uL Normal 150-450 [facility] Comment on above: Performed By: #### 5 8410-2 ####BHANU Treviño ([id number])[facility] ([facility])[address] [place] [address] 99093 RBC (Bld) [#/Vol] 3.41 x10*6/uL Low 4.50-5.90 [facility] Comment on above: Performed By: #### 5 8410-2 ####BHANU Treviño ([id number])[facility] ([facility])[address] [place] [address] 23995 WBC (Bld) [#/Vol] 10.1 x10*3/uL Normal 4.4-11.3 [facility] Comment on above: Performed By: #### 5 8410-2 ####BHANU Treviño ([id number])[facility] ([facility])[id number] [place] [address] 12234 Magnesiumon 02-05-2025 Magnesium [Mass/Vol] 1.87 mg/dL Normal 1.60-2.40 [facility] Comment on above: Performed By: #### 1 9123-9 ####BHANU Treviño ([id number])[facility] ([facility])[id number] [place] [address] Renal function 2000 panelon 02-05-2025 Albumin BCP dye [Mass/Vol] 2.6 g/dL Low 3.4-5.0 [facility] Comment on above: Performed By: #### 2 4362-6 ####BHANU Treviño ([id number])[facility] ([facility])[address] [place] [address] Anion gap [Moles/Vol] 13 mmol/L Normal 10-20 [facility] Comment on above: Performed By: #### 2 4362-6 ####BHANU Treviño ([id number])[facility] ([facility])[address] [place] [address] Calcium [Mass/Vol] 7.7 mg/dL Low 8.6-10.6 [facility] Comment on above: Performed By: #### 2 4362-6 ####BHANU Treviño ([id number])[facility] ([facility])[address] [place] [address] Chloride [Moles/Vol] 107 mmol/L Normal 98-107 [facility] Comment on above: Performed By: #### 2 4362-6 ####BHANU Treviño ([id number])[facility] ([facility])[address] [place] [address] CO2 [Moles/Vol] 26 mmol/L Normal 21-32 [facility] Comment on above: Performed By: #### 2 4362-6 ####BHANU Treviño ([id number])[facility] ([facility])[address] [place] [address] Creatinine [Mass/Vol] 1.02 mg/dL Normal 0.50-1.30 [facility] Comment on above: Performed By: #### 2 4362-6 ####BHANU GREGORY L ([id number])[facility] ([facility])[address] [place] [address] Glomerular filtration rate/1.73 sq M.predicted 89 mL/min/1.73m*2 Normal >60 [facility] Comment on above: Result Comment: Calc ulations of estimated GFR are performed using the 2021 CKD-EPI Study Refit equation without the race variable for the IDMS-Traceable creatinine methods.https://jasn.asnjournals.org/content/ /ASN.2333243296 Performed By: #### 2 4362-6 ####BHANU Treviño ([id number])[facility] ([facility])[address] [place] [address] Glucose [Mass/Vol] 94 mg/dL Normal 74-99 [facility] Comment on above: Performed By: #### 2 4362-6 ####BHANU Treviño ([id number])[facility] ([facility])[address] [place] [address] Phosphate [Mass/Vol] 2.8 mg/dL Normal 2.5-4.9 [facility] Comment on above: Performed By: #### 2 4362-6 ####BHANU Treviño (06260)[facility] ([facility])[address] [place] [address] Potassium [Moles/Vol] 4.4 mmol/L Normal 3.5-5.3 [facility] Comment on above: Performed By: #### 2 4362-6 ####BHANU Treviño ([id number])[facility] ([facility])[address] [place] [address] Sodium [Moles/Vol] 142 mmol/L Normal 136-145 [facility] Comment on above: Performed By: #### 2 4362-6 ####BHANU Treviño ([id number])[facility] ([facility])[address] [place] [address] Urea nitrogen [Mass/Vol] 13 mg/dL Normal 6-23 [facility] Comment on above: Performed By: #### 2 4362-6 ####BHANU Treviño ([id number])[facility] ([facility])[address] [place] [address] Bacteria identifiedon 2024 Bacteria identified Cx Nom (Unsp spec) Abnormal [facility] Comment on above: Performed By: #### 6 463-4 ####BHANU Treviño (73810)[facility] ([facility])[address] [facility] [place] [address] Blood type and Indirect anti body screen panel (Bld)on 02-04-2025 ABO group Nom (Bld) A Normal [facility] Comment on above: Performed By: #### 3 4532-2 ####BHANU Treviño ([id number])[facility] ([facility])[address] [place] [address] Blood group antibody screen Ql Negative [facility] Comment on above: Performed By: #### 3 4532-2 ####BHANU Treviño ([id number])[facility] ([facility])[address] [place] [address] D Ag Ql (Bld) Positive [facility] Comment on above: Performed By: #### 3 4532-2 ####BHANU Treviño ([id number])[facility] ([facility])[address] [facility] [place] [address] CBC panel Auto (Bld)on 02-04 Erythrocyte distribution width (RBC) [Ratio] 19.6 % High 11.5-14.5 [facility] Comment on above: Performed By: #### 5 8410-2 ####BHANU Treviño ([id number])[facility] ([facility])[address] [facility] [place] [address] Hematocrit (Bld) [Volume fraction] 28.8 % Low 41.0-52.0 [facility] Comment on above: Performed By: #### 5 8410-2 ####BHANU Treviño ([id number])[facility] ([facility])[address] [facility] [place] [address] Hemoglobin (Bld) [Mass/Vol] 9.1 g/dL Low 13.5-17.5 [facility] Comment on above: Performed By: #### 5 8410-2 ####BHANU Treviño (55884)[facility] ([facility])[address] [place] [address] MCH (RBC) [Entitic mass] 24.6 pg Low 26.0-34.0 [facility] Comment on above: Performed By: #### 5 8410-2 ####BHANU Treviño (73736)[facility] ([facility])[address] [place] [address] MCHC (RBC) [Mass/Vol] 31.6 g/dL Low 32.0-36.0 [facility] Comment on above: Performed By: #### 5 8410-2 ####BHANU Treviño (75040)[facility] ([facility])[address] [place] [address] MCV (RBC) [Entitic vol] 78 fL Low 80-100 [facility] Comment on above: Performed By: #### 5 8410-2 ####BHANU Treviño ([id number])[facility] ([facility])[address] [place] [address] Nucleated RBC/100 WBC (Bld) [Ratio] 0.0 /100 WBCs Normal 0.0-0.0 [facility] Comment on above: Performed By: #### 5 8410-2 ####BHANU Treviño (84994)[facility] ([facility])[address] [place] [address] Platelets (Bld) [#/Vol] 430 x10*3/uL Normal 150-450 [facility] Comment on above: Performed By: #### 5 8410-2 ####BHANU Treviño ([id number])[facility] ([facility])[address] [place] [address] RBC (Bld) [#/Vol] 3.70 x10*6/uL Low 4.50-5.90 [facility] Comment on above: Performed By: #### 5 8410-2 ####BHANU Treviño (60541)[facility] ([facility])[address] [place] [address] WBC (Bld) [#/Vol] 10.7 x10*3/uL Normal 4.4-11.3 [facility] Comment on above: Performed By: #### 5 8410-2 ####BHANU Treviño ([id number])[facility] ([facility])[address] [place] [address] Fungus identifiedon 02-05-20 Fungus identified Cx Nom (Unsp spec) Abnormal [facility] Comment on above: Performed By: #### 5 80-1 ####BHANU Treviño ([id number])[facility] ([facility])[address] [place] [address] Magnesiumon 02-04-2025 Magnesium [Mass/Vol] 1.84 mg/dL Normal 1.60-2.40 [facility] Comment on above: Performed By: #### 1 9123-9 ####BHANU Treviño (54077)[facility] ([facility])[address] [place] [address] PT and aPTT panel Coag (PPP) on 02-04-2025 aPTT Coag (PPP) [Time] 33 s Normal 26-36 [facility] Comment on above: Order Comment: The A PTT is no longer used for monitoring Unfractionated Heparin Therapy. For monitoring Heparin Therapy, use the Heparin Assay. Performed By: #### 3 4529-8 ####BHANU Treviño ([id number])[facility] ([facility])[address] [place] [address] INR Coag (PPP) [Relative time] 1.2 High 0.9-1.1 [facility] Comment on above: Order Comment: The A PTT is no longer used for monitoring Unfractionated Heparin Therapy. For monitoring Heparin Therapy, use the Heparin Assay. Performed By: #### 3 4529-8 ####BHANU Treviño (53631)[facility] ([facility])[address] [place] [address] PT Coag (PPP) [Time] 13.4 s High 9.8-12.4 [facility] Comment on above: Order Comment: The A PTT is no longer used for monitoring Unfractionated Heparin Therapy. For monitoring Heparin Therapy, use the Heparin Assay. Performed By: #### 3 4529-8 ####BHANU Treviño ([id number])[facility] ([facility])[address] [place] [address] Renal function 2000 panelon 02-04-2025 Albumin BCP dye [Mass/Vol] 2.5 g/dL Low 3.4-5.0 [facility] Comment on above: Performed By: #### 2 4362-6 ####BHANU Treviño ([id number])[facility] ([facility])[address] [place] [address] Anion gap [Moles/Vol] 11 mmol/L Normal 10-20 [facility] Comment on above: Performed By: #### 2 4362-6 ####BHANU Treviño (15698)[facility] ([facility])[address] [place] [address] Calcium [Mass/Vol] 8.2 mg/dL Low 8.6-10.6 [facility] Comment on above: Performed By: #### 2 4362-6 ####BHANU Treviño (36956)[facility] ([facility])[address] [place] [address] Chloride [Moles/Vol] 107 mmol/L Normal 98-107 [facility] Comment on above: Performed By: #### 2 4362-6 ####BHANU Treviño ([id number])[facility] ([facility])[address] [place] [address] CO2 [Moles/Vol] 28 mmol/L Normal 21-32 [facility] Comment on above: Performed By: #### 2 4362-6 ####BHANU Treviño (06852)[facility] ([facility])[address] [place] [address] Creatinine [Mass/Vol] 1.23 mg/dL Normal 0.50-1.30 [facility] Comment on above: Performed By: #### 2 4362-6 ####BHANU Treviño (35574)[facility] ([facility])[address] [place] [address] Glomerular filtration rate/1.73 sq M.predicted 71 mL/min/1.73m*2 Normal >60 [facility] Comment on above: Result Comment: Calc ulations of estimated GFR are performed using the 2020 CKD-EPI Study Refit equation without the race variable for the IDMS-Traceable creatinine methods.https://jasn.asnjournals.org/content/ /ASN.7701904485 Performed By: #### 2 4362-6 ####BHANU Treviño ([id number])[facility] ([facility])[address] [place] [address] Glucose [Mass/Vol] 108 mg/dL High 74-99 [facility] Comment on above: Performed By: #### 2 4362-6 ####BHANU Treviño (94417)[facility] ([facility])[address] [place] [address] Phosphate [Mass/Vol] 2.1 mg/dL Low 2.5-4.9 [facility] Comment on above: Performed By: #### 2 4362-6 ####BHANU Treviño (25363)[facility] ([facility])[address] [place] [address] Potassium [Moles/Vol] 4.3 mmol/L Normal 3.5-5.3 [facility] Comment on above: Performed By: #### 2 4362-6 ####BHANU Treviño ([id number])[facility] ([facility])[address] [place] [address] Sodium [Moles/Vol] 142 mmol/L Normal 136-145 [facility] Comment on above: Performed By: #### 2 4362-6 ####BHANU Treviño (65478)[facility] ([facility])[address] [place] [address] Urea nitrogen [Mass/Vol] 15 mg/dL Normal 6-23 [facility] Comment on above: Performed By: #### 2 4362-6 ####BHANU Treviño (00965)[facility] ([facility])[address] [place] [address] CBC W Auto Differential pane l (Bld)on 02-03-2025 Basophils (Bld) [#/Vol] 0.05 x10*3/uL Normal 0.00-0.10 [facility] Comment on above: Performed By: #### 5 7021-8 ####BHANU Treviño (74248)[facility] ([facility])[address] [place] [address] Basophils/100 WBC (Bld) 0.7 % Normal 0.0-2.0 [facility] Comment on above: Performed By: #### 5 7021-8 ####BHANU Treviño (48715)[facility] ([facility])[address] [place] [address] Eosinophils (Bld) [#/Vol] 0.55 x10*3/uL Normal 0.00-0.70 [facility] Comment on above: Performed By: #### 5 7021-8 ####BHANU Treviño (46208)[facility] ([facility])[address] [place] [address] Eosinophils/100 WBC (Bld) 7.4 % Normal 0.0-6.0 [facility] Comment on above: Performed By: #### 5 7021-8 ####BHANU Treviño ([id number])[facility] ([facility])[address] [place] [address] Erythrocyte distribution width (RBC) [Ratio] 20.0 % High 11.5-14.5 [facility] Comment on above: Performed By: #### 5 7021-8 ####BHANU Treviño (45348)[facility] ([facility])[address]47 [place] [address] Hematocrit (Bld) [Volume fraction] 25.4 % Low 41.0-52.0 [facility] Comment on above: Performed By: #### 5 7021-8 ####BHANU Treviño (55690)[facility] ([facility])[address] [place] [address] Hemoglobin (Bld) [Mass/Vol] 8.0 g/dL Low 13.5-17.5 [facility] Comment on above: Performed By: #### 5 7021-8 ####BHANU Treviño (37050)[facility] ([facility])[address] [place] [address] Immature granulocytes (Bld) [#/Vol] 0.03 x10*3/uL Normal 0.00-0.70 [facility] Comment on above: Performed By: #### 5 7021-8 ####BHANU Treviño (57438)[facility] ([facility])[address] [place] [address] Immature granulocytes/100 WBC (Bld) 0.4 % Normal 0.0-0.9 [facility] Comment on above: Result Comment: Christine ture Granulocyte Count (IG) includes promyelocytes, myelocytes and metamyelocytes but does not include bands. Percent differential counts (%) should be interpreted in the context of the absolute cell counts (cells/UL). Performed By: #### 5 7021-8 ####BHANU Treviño (75013)[facility] ([facility])[address] [place] [address] Lymphocytes (Bld) [#/Vol] 1.37 x10*3/uL Normal 1.20-4.80 [facility] Comment on above: Performed By: #### 5 7021-8 ####BHANU Treviño (21688)[facility] ([facility])[address] [place] [address] Lymphocytes/100 WBC (Bld) 18.4 % Normal 13.0-44.0 [facility] Comment on above: Performed By: #### 5 7021-8 ####BHANU Treviño (65140)[facility] ([facility])[address] [place] [address] MCH (RBC) [Entitic mass] 24.2 pg Low 26.0-34.0 [facility] Comment on above: Performed By: #### 5 7021-8 ####BHANU Treviño ([id number])[facility] ([facility])[address] [place] [address] MCHC (RBC) [Mass/Vol] 31.5 g/dL Low 32.0-36.0 [facility] Comment on above: Performed By: #### 5 7021-8 ####BHANU Treviño ([id number])[facility] ([facility])[address] [place] [address] MCV (RBC) [Entitic vol] 77 fL Low 80-100 [facility] Comment on above: Performed By: #### 5 7021-8 ####BHANU Treviño ([id number])[facility] ([facility])[address] [place] [address] Monocytes (Bld) [#/Vol] 0.67 x10*3/uL Normal 0.10-1.00 [facility] Comment on above: Performed By: #### 5 7021-8 ####BHANU Treviño (02302)[facility] ([facility])[address] [place] [address] Monocytes/100 WBC (Bld) 9.0 % Normal 2.0-10.0 [facility] Comment on above: Performed By: #### 5 7021-8 ####BHANU Treviño (91155)[facility] ([facility])[address] [place] [address] Neutrophils (Bld) [#/Vol] 4.77 x10*3/uL Normal 1.20-7.70 [facility] Comment on above: Result Comment: Perc ent differential counts (%) should be interpreted in the context of the absolute cell counts (cells/uL). Performed By: #### 5 7021-8 ####BHANU Treviño (50974)[facility] ([facility])[address] [place] [address] Neutrophils/100 WBC (Bld) 64.1 % Normal 40.0-80.0 [facility] Comment on above: Performed By: #### 5 7021-8 ####BHANU Treviño (50084)[facility] ([facility])[address] [place] [address] Nucleated RBC/100 WBC (Bld) [Ratio] 0.0 /100 WBCs Normal 0.0-0.0 [facility] Comment on above: Performed By: #### 5 7021-8 ####BHANU Treviño (32022)[facility] ([facility])[address] [place] [address] Platelets (Bld) [#/Vol] 407 x10*3/uL Normal 150-450 [facility] Comment on above: Performed By: #### 5 7021-8 ####BHANU Treviño (04903)[facility] ([facility])[address] [place] [address] RBC (Bld) [#/Vol] 3.31 x10*6/uL Low 4.50-5.90 [facility] Comment on above: Performed By: #### 5 7021-8 ####BHANU Treviño (78843)[facility] ([facility])[address] [place] [address] WBC (Bld) [#/Vol] 7.4 x10*3/uL Normal 4.4-11.3 [facility] Comment on above: Performed By: #### 5 7021-8 ####BHANU Treviño (07815)[facility] ([facility])[address] [place] [address] Glucose Test strip manual (B ld) [Mass/Vol]on 02-03-2025 Glucose [Mass/Vol] 102 mg/dL High 74-99 [facility] Comment on above: Performed By: #### 2 341-6 ####BHANU Treviño ([id number])[facility] ([facility])[address] [place] [address] Renal function 2000 panelon 02-03-2025 Albumin BCP dye [Mass/Vol] 2.4 g/dL Low 3.4-5.0 [facility] Comment on above: Performed By: #### 2 4362-6 ####BHANU Treviño (23719)[facility] ([facility])[address] [place] [address] Anion gap [Moles/Vol] 10 mmol/L Normal 10-20 [facility] Comment on above: Performed By: #### 2 4362-6 ####BHANU Treviño ([id number])[facility] ([facility])[address] [place] [address] Calcium [Mass/Vol] 7.8 mg/dL Low 8.6-10.6 [facility] Comment on above: Performed By: #### 2 4362-6 ####BHANU Treviño (97680)[facility] ([facility])[address] [place] [address] Chloride [Moles/Vol] 107 mmol/L Normal 98-107 [facility] Comment on above: Performed By: #### 2 4362-6 ####BHANU Treviño (74252)[facility] ([facility])[address] [place] [address] CO2 [Moles/Vol] 30 mmol/L Normal 21-32 [facility] Comment on above: Performed By: #### 2 4362-6 ####BHANU Treviño ([id number])[facility] ([facility])[address] [place] [address] Creatinine [Mass/Vol] 1.10 mg/dL Normal 0.50-1.30 [facility] Comment on above: Performed By: #### 2 4362-6 ####BHANU Treviño (80141)[facility] ([facility])[address] [place] [address] Glomerular filtration rate/1.73 sq M.predicted 81 mL/min/1.73m*2 Normal >60 [facility] Comment on above: Result Comment: Calc ulations of estimated GFR are performed using the 2020 CKD-EPI Study Refit equation without the race variable for the IDMS-Traceable creatinine methods.https://jasn.asnjournals.org/content/early/ /ASN.3323998549 Performed By: #### 2 4362-6 ####BHANU Treviño (79156)[facility] ([facility])[address] [place] [address] Glucose [Mass/Vol] 94 mg/dL Normal 74-99 [facility] Comment on above: Performed By: #### 2 4362-6 ####BHANU GREGORY L ([id number])[facility] ([facility])[address] [place] [address] Phosphate [Mass/Vol] 2.9 mg/dL Normal 2.5-4.9 [facility] Comment on above: Performed By: #### 2 4362-6 ####BHANU GREGORY L ([id number])[facility] ([facility])[address] [place] [address] Potassium [Moles/Vol] 4.9 mmol/L Normal 3.5-5.3 [facility] Comment on above: Performed By: #### 2 4362-6 ####BHANU FLEMINGMOTZER L ([id number])[facility] ([facility])[address] [place] [address] Sodium [Moles/Vol] 142 mmol/L Normal 136-145 [facility] Comment on above: Performed By: #### 2 4362-6 ####BHANU GREGORY L ([id number])[facility] ([facility])[address] [place] [address] Urea nitrogen [Mass/Vol] 15 mg/dL Normal 6-23 [facility] Comment on above: Performed By: #### 2 4362-6 ####BHANU Treviño ([id number])[facility] ([facility])[id number] [place] [address] CBC W Auto Differential pane l (Bld)on 02-02-2025 Basophils (Bld) [#/Vol] 0.05 x10*3/uL Normal 0.00-0.10 [facility] Comment on above: Performed By: #### 5 7021-8 ####BHANU Treviño ([id number])[facility] ([facility])[address] [place] [address] Basophils/100 WBC (Bld) 0.9 % Normal 0.0-2.0 [facility] Comment on above: Performed By: #### 5 7021-8 ####BHANU Treviño ([id number])[facility] ([facility])[address] [place] [address] Eosinophils (Bld) [#/Vol] 0.51 x10*3/uL Normal 0.00-0.70 [facility] Comment on above: Performed By: #### 5 7021-8 ####BHANU Treviño ([id number])[facility] ([facility])[address] [place] [address]96 Eosinophils/100 WBC (Bld) 9.2 % Normal 0.0-6.0 [facility] Comment on above: Performed By: #### 5 7021-8 ####BHANU Treviño ([id number])[facility] ([facility])[id number] [place] [address] Erythrocyte distribution width (RBC) [Ratio] 19.2 % High 11.5-14.5 [facility] Comment on above: Performed By: #### 5 7021-8 ####BHANU Treviño ([id number])[facility] ([facility])[id number] [place] [address] Hematocrit (Bld) [Volume fraction] 30.4 % Low 41.0-52.0 [facility] Comment on above: Performed By: #### 5 7021-8 ####BHANU Treviño ([id number])[facility] ([facility])[address] [place] [address] Hemoglobin (Bld) [Mass/Vol] 9.7 g/dL Low 13.5-17.5 [facility] Comment on above: Performed By: #### 5 7021-8 ####BHANU Treviño ([id number])[facility] ([facility])[address] [place] [address] Immature granulocytes (Bld) [#/Vol] 0.02 x10*3/uL Normal 0.00-0.70 [facility] Comment on above: Performed By: #### 5 7021-8 ####BHANU Treviño ([id number])[facility] ([facility])[address] [place] [address] Immature granulocytes/100 WBC (Bld) 0.4 % Normal 0.0-0.9 [facility] Comment on above: Result Comment: Christine ture Granulocyte Count (IG) includes promyelocytes, myelocytes and metamyelocytes but does not include bands. Percent differential counts (%) should be interpreted in the context of the absolute cell counts (cells/UL). Performed By: #### 5 7021-8 ####BHANU Treviño ([id number])[facility] ([facility])[address] [place] [address] Lymphocytes (Bld) [#/Vol] 0.92 x10*3/uL Low 1.20-4.80 [facility] Comment on above: Performed By: #### 5 7021-8 ####BHANU Treviño ([id number])[facility] ([facility])[address] [place] [address] Lymphocytes/100 WBC (Bld) 16.6 % Normal 13.0-44.0 [facility] Comment on above: Performed By: #### 5 7021-8 ####BHANU Treviño ([id number])[facility] ([facility])[address] [place] [address] MCH (RBC) [Entitic mass] 24.4 pg Low 26.0-34.0 [facility] Comment on above: Performed By: #### 5 7021-8 ####BHANU Treviño ([id number])[facility] ([facility])[address] [place] [address] MCHC (RBC) [Mass/Vol] 31.9 g/dL Low 32.0-36.0 [facility] Comment on above: Performed By: #### 5 7021-8 ####BHANU Treviño ([id number])[facility] ([facility])[address] [place] [address] MCV (RBC) [Entitic vol] 77 fL Low 80-100 [facility] Comment on above: Performed By: #### 5 7021-8 ####BHANU Treviño ([id number])[facility] ([facility])[address] [place] [address] Monocytes (Bld) [#/Vol] 0.63 x10*3/uL Normal 0.10-1.00 [facility] Comment on above: Performed By: #### 5 7021-8 ####BHANU Treviño ([id number])[facility] ([facility])[address] [place] [address] Monocytes/100 WBC (Bld) 11.4 % Normal 2.0-10.0 [facility] Comment on above: Performed By: #### 5 7021-8 ####BHANU Treviño ([id number])[facility] ([facility])[address] [place] [address] Neutrophils (Bld) [#/Vol] 3.41 x10*3/uL Normal 1.20-7.70 [facility] Comment on above: Result Comment: Perc ent differential counts (%) should be interpreted in the context of the absolute cell counts (cells/uL). Performed By: #### 5 7021-8 ####BHANU Treviño ([id number])[facility] ([facility])[address] [place] [address] Neutrophils/100 WBC (Bld) 61.5 % Normal 40.0-80.0 [facility] Comment on above: Performed By: #### 5 7021-8 ####BHANU Treviño (94419)[facility] ([facility])[address] [place] [address] Nucleated RBC/100 WBC (Bld) [Ratio] 0.0 /100 WBCs Normal 0.0-0.0 [facility] Comment on above: Performed By: #### 5 7021-8 ####BHANU Treviño (25513)[facility] ([facility])[address] [place] [address] Platelets (Bld) [#/Vol] 347 x10*3/uL Normal 150-450 [facility] Comment on above: Performed By: #### 5 7021-8 ####BHANU Treviño ([id number])[facility] ([facility])[address] [place] [address] RBC (Bld) [#/Vol] 3.97 x10*6/uL Low 4.50-5.90 [facility] Comment on above: Performed By: #### 5 7021-8 ####BHANU Treviño (93035)[facility] ([facility])[address] [place] [address] WBC (Bld) [#/Vol] 5.5 x10*3/uL Normal 4.4-11.3 [facility] Comment on above: Performed By: #### 5 7021-8 ####BHANU GREGORY L (12685)[facility] ([facility])[address] [place] [address] Glucose Test strip manual (B ld) [Mass/Vol]on 02-02-2025 Glucose [Mass/Vol] 94 mg/dL Normal 74-99 [facility] Comment on above: Performed By: #### 2 341-6 ####BHANU Treviño (34301)[facility] ([facility])[address] [place] [address] Glucose [Mass/Vol] 107 mg/dL High 74-99 [facility] Comment on above: Performed By: #### 2 341-6 ####BHANU Treviño ([id number])[facility] ([facility])[address] [place] [address] Prealbuminon 02-02-2025 Prealbumin [Mass/Vol] 7.5 mg/dL Low 18.0-40.0 [facility] Comment on above: Performed By: #### 1 4338-8 ####BHANU Treviño ([id number])[facility] ([facility])[address] [place] [address]87 Renal function 2000 panelon 02-02-2025 Albumin BCP dye [Mass/Vol] 2.4 g/dL Low 3.4-5.0 [facility] Comment on above: Performed By: #### 2 4362-6 ####BHANU Treviño (74617)[facility] ([facility])[address] [place] [address] Anion gap [Moles/Vol] 12 mmol/L Normal 10-20 [facility] Comment on above: Performed By: #### 2 4362-6 ####BHANU Treviño ([id number])[facility] ([facility])[address] [place] [address] Calcium [Mass/Vol] 7.9 mg/dL Low 8.6-10.6 [facility] Comment on above: Performed By: #### 2 4362-6 ####BHANU Treviño ([id number])[facility] ([facility])[address] [place] [address] Chloride [Moles/Vol] 107 mmol/L Normal 98-107 [facility] Comment on above: Performed By: #### 2 4362-6 ####BHANU Treviño (34145)[facility] ([facility])[address] [place] [address] CO2 [Moles/Vol] 28 mmol/L Normal 21-32 [facility] Comment on above: Performed By: #### 2 4362-6 ####BHANU Treviño (62976)[facility] ([facility])[address] [place] [address] Creatinine [Mass/Vol] 1.19 mg/dL Normal 0.50-1.30 [facility] Comment on above: Performed By: #### 2 4362-6 ####BHANU Treviño (83237)[facility] ([facility])[address] [place] [address] Glomerular filtration rate/1.73 sq M.predicted 74 mL/min/1.73m*2 Normal >60 [facility] Comment on above: Result Comment: Calc ulations of estimated GFR are performed using the 2020 CKD-EPI Study Refit equation without the race variable for the IDMS-Traceable creatinine methods.https://jasn.asnjournals.org/content/ /ASN.8320736687 Performed By: #### 2 4362-6 ####BHANU Treviño (42271)[facility] ([facility])[address] [place] [address] Glucose [Mass/Vol] 85 mg/dL Normal 74-99 [facility] Comment on above: Performed By: #### 2 4362-6 ####BHANU Treviño (30031)[facility] ([facility])[address] [place] [address] Phosphate [Mass/Vol] 2.8 mg/dL Normal 2.5-4.9 [facility] Comment on above: Performed By: #### 2 4362-6 ####BHANU Treviño (61932)[facility] ([facility])[address] [place] [address] Potassium [Moles/Vol] 4.6 mmol/L Normal 3.5-5.3 [facility] Comment on above: Performed By: #### 2 4362-6 ####BHANU Treviño (07788)[facility] ([facility])[address] [place] [address] Sodium [Moles/Vol] 142 mmol/L Normal 136-145 [facility] Comment on above: Performed By: #### 2 4362-6 ####BHANU Treviño (44152)[facility] ([facility])[address] [place] [address] Urea nitrogen [Mass/Vol] 15 mg/dL Normal 6-23 [facility] Comment on above: Performed By: #### 2 4362-6 ####BHANU Treviño ([id number])[facility] ([facility])[address] [place] [address] Basic metabolic 2000 panelon 02-01-2025 Anion gap [Moles/Vol] 13 mmol/L Normal 10-20 [facility] Comment on above: Performed By: #### 2 4321-2 ####BHANU Treviño ([id number])[facility] ([facility])[address] [place] [address] Calcium [Mass/Vol] 7.9 mg/dL Low 8.6-10.6 [facility] Comment on above: Performed By: #### 2 4321-2 ####BHANU Treviño ([id number])[facility] ([facility])[address] [place] [address] Chloride [Moles/Vol] 106 mmol/L Normal 98-107 [facility] Comment on above: Performed By: #### 2 4321-2 ####BHANU Treviño (69151)[facility] ([facility])[address] [place] [address] CO2 [Moles/Vol] 29 mmol/L Normal 21-32 [facility] Comment on above: Performed By: #### 2 4321-2 ####BHANU Treviño ([id number])[facility] ([facility])[address] [place] [address] Creatinine [Mass/Vol] 1.35 mg/dL High 0.50-1.30 [facility] Comment on above: Performed By: #### 2 4321-2 ####BHANU Treviño (80446)[facility] ([facility])[address] [place] [address] Glomerular filtration rate/1.73 sq M.predicted 64 mL/min/1.73m*2 Normal >60 [facility] Comment on above: Result Comment: Calc ulations of estimated GFR are performed using the 2020 CKD-EPI Study Refit equation without the race variable for the IDMS-Traceable creatinine methods.https://jasn.asnjournals.org/content/early/ /ASN.2001068623 Performed By: #### 2 4321-2 ####BHANU Treviño ([id number])[facility] ([facility])[address] [place] [address] Glucose [Mass/Vol] 81 mg/dL Normal 74-99 [facility] Comment on above: Performed By: #### 2 4321-2 ####BHANU Treviño (70071)[facility] ([facility])[address] [place] [address] Potassium [Moles/Vol] 4.5 mmol/L Normal 3.5-5.3 [facility] Comment on above: Performed By: #### 2 4321-2 ####BHANU Treviño (94563)[facility] ([facility])[address] [place] [address] Sodium [Moles/Vol] 143 mmol/L Normal 136-145 [facility] Comment on above: Performed By: #### 2 4321-2 ####BHANU Treviño (35331)[facility] ([facility])[address] [place] [address] Urea nitrogen [Mass/Vol] 15 mg/dL Normal 6-23 [facility] Comment on above: Performed By: #### 2 4321-2 ####BHANU Treviño (35423)[facility] ([facility])[address] [facility] [place] [address] Blood type and Indirect anti body screen panel (Bld)on 02-01-2025 ABO group Nom (Bld) A Normal [facility] Comment on above: Performed By: #### 3 4532-2 ####BHANU Treviño ([id number])[facility] ([facility])[address] [facility] [place] [address] Blood group antibody screen Ql Negative [facility] Comment on above: Performed By: #### 3 4532-2 ####BHANU Treviño (42189)[facility] ([facility])[address] [place] [address] D Ag Ql (Bld) Positive [facility] Comment on above: Performed By: #### 3 4532-2 ####BHANU Treviño (72571)[facility] ([facility])[address] [place] [address] CBC panel Auto (Bld)on 02-01 Erythrocyte distribution width (RBC) [Ratio] 19.1 % High 11.5-14.5 [facility] Comment on above: Performed By: #### 5 8410-2 ####BHANU Treviño (32394)[facility] ([facility])[address] [place] [address] Hematocrit (Bld) [Volume fraction] 25.0 % Low 41.0-52.0 [facility] Comment on above: Performed By: #### 5 8410-2 ####BHANU Treviño ([id number])[facility] ([facility])[address] [facility] [place] [address] Hemoglobin (Bld) [Mass/Vol] 8.0 g/dL Low 13.5-17.5 [facility] Comment on above: Performed By: #### 5 8410-2 ####BHANU Treviño (12197)[facility] ([facility])[address] [place] [address] MCH (RBC) [Entitic mass] 25.2 pg Low 26.0-34.0 [facility] Comment on above: Performed By: #### 5 8410-2 ####BHANU Treviño (62660)[facility] ([facility])[address] [place] [address] MCHC (RBC) [Mass/Vol] 32.0 g/dL Normal 32.0-36.0 [facility] Comment on above: Performed By: #### 5 8410-2 ####BHANU Treviño (64070)[facility] ([facility])[address] [place] [address] MCV (RBC) [Entitic vol] 79 fL Low 80-100 [facility] Comment on above: Performed By: #### 5 8410-2 ####BHANU Treviño (10375)[facility] ([facility])[address] [place] [address] Nucleated RBC/100 WBC (Bld) [Ratio] 0.0 /100 WBCs Normal 0.0-0.0 [facility] Comment on above: Performed By: #### 5 8410-2 ####BHANU Treviño (53609)[facility] ([facility])[address]273 [place] [address] Platelets (Bld) [#/Vol] 433 x10*3/uL Normal 150-450 [facility] Comment on above: Performed By: #### 5 8410-2 ####BHANU Treviño (96479)[facility] ([facility])[address] [place] [address] 12088 RBC (Bld) [#/Vol] 3.18 x10*6/uL Low 4.50-5.90 [facility] Comment on above: Performed By: #### 5 8410-2 ####BHANU Treviño (60580)[facility] ([facility])[address] [place] [address] WBC (Bld) [#/Vol] 6.9 x10*3/uL Normal 4.4-11.3 [facility] Comment on above: Performed By: #### 5 8410-2 ####BHANU Treviño (34807)[facility] ([facility])[address] [place] [address] Glucose Test strip manual (B ld) [Mass/Vol]on 02-01-2025 Glucose [Mass/Vol] 98 mg/dL Normal 74-99 [facility] Comment on above: Performed By: #### 2 341-6 ####BHANU Treviño (44745)[facility] ([facility])[address]63 [place] [address] Glucose [Mass/Vol] 127 mg/dL High 74-99 [facility] Comment on above: Performed By: #### 2 341-6 ####BHANU Treviño (22748)[facility] ([facility])[address]71 [place] [address] Glucose [Mass/Vol] 110 mg/dL High 74-99 [facility] Comment on above: Performed By: #### 2 341-6 ####BHANU Treviño (41252)[facility] ([facility])[address]364 [place] [address] CBC W Auto Differential pane l (Bld)on 01-31-2025 Basophils (Bld) [#/Vol] 0.04 x10*3/uL Normal 0.00-0.10 [facility] Comment on above: Performed By: #### 5 7021-8 ####BHANU Treviño ([id number])[facility] ([facility])[address] [place] [address] Basophils/100 WBC (Bld) 0.5 % Normal 0.0-2.0 [facility] Comment on above: Performed By: #### 5 7021-8 ####BHANU Treviño (74208)[facility] ([facility])[address]83 [place] [address] Eosinophils (Bld) [#/Vol] 0.01 x10*3/uL Normal 0.00-0.70 [facility] Comment on above: Performed By: #### 5 7021-8 ####BHANU Treviño (14202)[facility] ([facility])[address] [place] [address] Eosinophils/100 WBC (Bld) 0.1 % Normal 0.0-6.0 [facility] Comment on above: Performed By: #### 5 7021-8 ####BHANU Treviño (83623)[facility] ([facility])[address] [place] [address] Erythrocyte distribution width (RBC) [Ratio] 19.6 % High 11.5-14.5 [facility] Comment on above: Performed By: #### 5 7021-8 ####BHANU Treviño (42832)[facility] ([facility])[address] [place] [address] Hematocrit (Bld) [Volume fraction] 21.9 % Low 41.0-52.0 [facility] Comment on above: Performed By: #### 5 7021-8 ####BHANU Treviño (77615)[facility] ([facility])[address] [place] [address] Hemoglobin (Bld) [Mass/Vol] 7.1 g/dL Low 13.5-17.5 [facility] Comment on above: Performed By: #### 5 7021-8 ####BHANU Treviño (47422)[facility] ([facility])[address] [place] [address] Immature granulocytes (Bld) [#/Vol] 0.06 x10*3/uL Normal 0.00-0.70 [facility] Comment on above: Performed By: #### 5 7021-8 ####BHANU Treviño (61063)[facility] ([facility])[address] [place] [address] Immature granulocytes/100 WBC (Bld) 0.7 % Normal 0.0-0.9 [facility] Comment on above: Result Comment: Christine ture Granulocyte Count (IG) includes promyelocytes, myelocytes and metamyelocytes but does not include bands. Percent differential counts (%) should be interpreted in the context of the absolute cell counts (cells/UL). Performed By: #### 5 7021-8 ####BHANU Treviño (40907)[facility] ([facility])[address] [place] [address] Lymphocytes (Bld) [#/Vol] 1.27 x10*3/uL Normal 1.20-4.80 [facility] Comment on above: Performed By: #### 5 7021-8 ####BHANU Treviño (53463)[facility] ([facility])[address] [place] [address] Lymphocytes/100 WBC (Bld) 14.6 % Normal 13.0-44.0 [facility] Comment on above: Performed By: #### 5 7021-8 ####BHANU Treviño (97093)[facility] ([facility])[address]27 [place] [address] MCH (RBC) [Entitic mass] 24.1 pg Low 26.0-34.0 [facility] Comment on above: Performed By: #### 5 7021-8 ####BHANU Treviño (46865)[facility] ([facility])[address] [place] [address] MCHC (RBC) [Mass/Vol] 32.4 g/dL Normal 32.0-36.0 [facility] Comment on above: Performed By: #### 5 7021-8 ####BHANU Treviño (95280)[facility] ([facility])[address] [place] [address] MCV (RBC) [Entitic vol] 75 fL Low 80-100 [facility] Comment on above: Performed By: #### 5 7021-8 ####BHANU Treviño ([id number])[facility] ([facility])[address] [place] [address] Monocytes (Bld) [#/Vol] 0.94 x10*3/uL Normal 0.10-1.00 [facility] Comment on above: Performed By: #### 5 7021-8 ####BHANU Treviño (80684)[facility] ([facility])[address]367 [place] [address] Monocytes/100 WBC (Bld) 10.8 % Normal 2.0-10.0 [facility] Comment on above: Performed By: #### 5 7021-8 ####BHANU Treviño (88066)[facility] ([facility])[address]337 [place] [address] Neutrophils (Bld) [#/Vol] 6.39 x10*3/uL Normal 1.20-7.70 [facility] Comment on above: Result Comment: Perc ent differential counts (%) should be interpreted in the context of the absolute cell counts (cells/uL). Performed By: #### 5 7021-8 ####BHANU Treviño ([id number])[facility] ([facility])[address] [place] [address] Neutrophils/100 WBC (Bld) 73.3 % Normal 40.0-80.0 [facility] Comment on above: Performed By: #### 5 7021-8 ####BHANU Treviño ([id number])[facility] ([facility])[address] [place] [address] Nucleated RBC/100 WBC (Bld) [Ratio] 0.0 /100 WBCs Normal 0.0-0.0 [facility] Comment on above: Performed By: #### 5 7021-8 ####BHANU Treviño ([id number])[facility] ([facility])[address] [place] [address] Platelets (Bld) [#/Vol] 455 x10*3/uL High 150-450 [facility] Comment on above: Performed By: #### 5 7021-8 ####BHANU Treviño ([id number])[facility] ([facility])[address] [place] [address] RBC (Bld) [#/Vol] 2.94 x10*6/uL Low 4.50-5.90 [facility] Comment on above: Performed By: #### 5 7021-8 ####BHANU Treviño ([id number])[facility] ([facility])[id number] [place] [address] WBC (Bld) [#/Vol] 8.7 x10*3/uL Normal 4.4-11.3 [facility] Comment on above: Performed By: #### 5 7021-8 ####BHANU Treviño ([id number])[facility] ([facility])[id number] [place] [address] Glucose Test strip manual (B ld) [Mass/Vol]on 01-31-2025 Glucose [Mass/Vol] 97 mg/dL Normal 74-99 [facility] Comment on above: Performed By: #### 2 341-6 ####BHANU Treviño ([id number])[facility] ([facility])[id number] [place] [address] Glucose [Mass/Vol] 107 mg/dL High 74-99 [facility] Comment on above: Performed By: #### 2 341-6 ####BHANU Treviño ([id number])[facility] ([facility])[address] [place] [address] Magnesiumon 01-31-2025 Magnesium [Mass/Vol] 2.07 mg/dL Normal 1.60-2.40 [facility] Comment on above: Performed By: #### 1 9123-9 ####BHANU Treviño ([id number])[facility] ([facility])[address] [place] [address] Renal function 2000 panelon 01-31-2025 Albumin BCP dye [Mass/Vol] 2.6 g/dL Low 3.4-5.0 [facility] Comment on above: Performed By: #### 2 4362-6 ####BHANU Treviño ([id number])[facility] ([facility])[address] [place] [address] Anion gap [Moles/Vol] 13 mmol/L Normal 10-20 [facility] Comment on above: Performed By: #### 2 4362-6 ####BHANU Treviño ([id number])[facility] ([facility])[address] [place] [address] Calcium [Mass/Vol] 8.2 mg/dL Low 8.6-10.6 [facility] Comment on above: Performed By: #### 2 4362-6 ####BHANU Treviño ([id number])[facility] ([facility])[address] [place] [address] Chloride [Moles/Vol] 102 mmol/L Normal 98-107 [facility] Comment on above: Performed By: #### 2 4362-6 ####BHANU Treviño ([id number])[facility] ([facility])[address] [place] [address] CO2 [Moles/Vol] 29 mmol/L Normal 21-32 [facility] Comment on above: Performed By: #### 2 4362-6 ####BHANU Treviño ([id number])[facility] ([facility])[address] [place] [address] Creatinine [Mass/Vol] 1.04 mg/dL Normal 0.50-1.30 [facility] Comment on above: Performed By: #### 2 4362-6 ####BHANU GREGORY L ([id number])[facility] ([facility])[address] [place] [address] Glomerular filtration rate/1.73 sq M.predicted 87 mL/min/1.73m*2 Normal >60 [facility] Comment on above: Result Comment: Calc ulations of estimated GFR are performed using the 2020 CKD-EPI Study Refit equation without the race variable for the IDMS-Traceable creatinine methods.https://jasn.asnjournals.org/content/ /ASN.2136586754 Performed By: #### 2 4362-6 ####BHANU Treviño ([id number])[facility] ([facility])[address] [place] [address] Glucose [Mass/Vol] 104 mg/dL High 74-99 [facility] Comment on above: Performed By: #### 2 4362-6 ####BHANU Treviño ([id number])[facility] ([facility])[address] [place] [address] Phosphate [Mass/Vol] 3.6 mg/dL Normal 2.5-4.9 [facility] Comment on above: Performed By: #### 2 4362-6 ####BHANU Treviño ([id number])[facility] ([facility])[address] [place] [address] Potassium [Moles/Vol] 4.4 mmol/L Normal 3.5-5.3 [facility] Comment on above: Performed By: #### 2 4362-6 ####BHANU GREGORY L ([id number])[facility] ([facility])[address] [place] [address] Sodium [Moles/Vol] 140 mmol/L Normal 136-145 [facility] Comment on above: Performed By: #### 2 4362-6 ####BHANU GREGORY L ([id number])[facility] ([facility])[address] [place] [address] Urea nitrogen [Mass/Vol] 12 mg/dL Normal 6-23 [facility] Comment on above: Performed By: #### 2 4362-6 ####BHANU Treviño ([id number])[facility] ([facility])[address] [place] [address] Bacteria identifiedon 2024 Bacteria identified Cx Nom (Unsp spec) Abnormal [facility] Comment on above: Performed By: #### 6 463-4 ####BHANU Treviño (87927)[facility] ([facility])[address] [place] [address] Bacteria identified Cx Nom (Unsp spec) Abnormal [facility] Comment on above: Performed By: #### 6 463-4 ####BHANU Treviño ([id number])[facility] ([facility])[address] [place] [address] CBC W Auto Differential pane l (Bld)on 01-30-2025 Basophils (Bld) [#/Vol] 0.05 x10*3/uL Normal 0.00-0.10 [facility] Comment on above: Performed By: #### 5 7021-8 ####BHANU Treviño ([id number])[facility] ([facility])[address] [place] [address] Basophils/100 WBC (Bld) 0.7 % Normal 0.0-2.0 [facility] Comment on above: Performed By: #### 5 7021-8 ####BHANU Treviño ([id number])[facility] ([facility])[address] [place] [address] Eosinophils (Bld) [#/Vol] 0.14 x10*3/uL Normal 0.00-0.70 [facility] Comment on above: Performed By: #### 5 7021-8 ####BHANU Treviño ([id number])[facility] ([facility])[address] [place] [address] Eosinophils/100 WBC (Bld) 2.0 % Normal 0.0-6.0 [facility] Comment on above: Performed By: #### 5 7021-8 ####BHANU Treviño ([id number])[facility] ([facility])[address] [place] [address] Erythrocyte distribution width (RBC) [Ratio] 19.9 % High 11.5-14.5 [facility] Comment on above: Performed By: #### 5 7021-8 ####BHANU Treviño ([id number])[facility] ([facility])[address] [place] [address] Hematocrit (Bld) [Volume fraction] 26.3 % Low 41.0-52.0 [facility] Comment on above: Performed By: #### 5 7021-8 ####BHANU GREGORY L ([id number])[facility] ([facility])[address] [place] [address] Hemoglobin (Bld) [Mass/Vol] 8.3 g/dL Low 13.5-17.5 [facility] Comment on above: Performed By: #### 5 7021-8 ####BHANU Treviño ([id number])[facility] ([facility])[address] [place] [address] Immature granulocytes (Bld) [#/Vol] 0.02 x10*3/uL Normal 0.00-0.70 [facility] Comment on above: Performed By: #### 5 7021-8 ####BHANU Treviño (76085)[facility] ([facility])[address] [place] [address] Immature granulocytes/100 WBC (Bld) 0.3 % Normal 0.0-0.9 [facility] Comment on above: Result Comment: Christine ture Granulocyte Count (IG) includes promyelocytes, myelocytes and metamyelocytes but does not include bands. Percent differential counts (%) should be interpreted in the context of the absolute cell counts (cells/UL). Performed By: #### 5 7021-8 ####BHANU GREGORY L ([id number])[facility] ([facility])[address] [place] [address] Lymphocytes (Bld) [#/Vol] 1.09 x10*3/uL Low 1.20-4.80 [facility] Comment on above: Performed By: #### 5 7021-8 ####BHANU GREGORY L ([id number])[facility] ([facility])[address] [place] [address] Lymphocytes/100 WBC (Bld) 15.4 % Normal 13.0-44.0 [facility] Comment on above: Performed By: #### 5 7021-8 ####BHANU Treviño ([id number])[facility] ([facility])[address] [place] [address] MCH (RBC) [Entitic mass] 24.1 pg Low 26.0-34.0 [facility] Comment on above: Performed By: #### 5 7021-8 ####BHANU Treviño (94349)[facility] ([facility])[address] [place] [address] MCHC (RBC) [Mass/Vol] 31.6 g/dL Low 32.0-36.0 [facility] Comment on above: Performed By: #### 5 7021-8 ####BHANU Treviño ([id number])[facility] ([facility])[address] [place] [address] MCV (RBC) [Entitic vol] 76 fL Low 80-100 [facility] Comment on above: Performed By: #### 5 7021-8 ####BHANU Treviño ([id number])[facility] ([facility])[address] [place] [address] Monocytes (Bld) [#/Vol] 0.89 x10*3/uL Normal 0.10-1.00 [facility] Comment on above: Performed By: #### 5 7021-8 ####BHANU Treviño ([id number])[facility] ([facility])[address] [place] [address] Monocytes/100 WBC (Bld) 12.6 % Normal 2.0-10.0 [facility] Comment on above: Performed By: #### 5 7021-8 ####BHANU Treviño ([id number])[facility] ([facility])[address] [place] [address] Neutrophils (Bld) [#/Vol] 4.87 x10*3/uL Normal 1.20-7.70 [facility] Comment on above: Result Comment: Perc ent differential counts (%) should be interpreted in the context of the absolute cell counts (cells/uL). Performed By: #### 5 7021-8 ####BHANU Treviño (53789)[facility] ([facility])[address] [place] [address] Neutrophils/100 WBC (Bld) 69.0 % Normal 40.0-80.0 [facility] Comment on above: Performed By: #### 5 7021-8 ####BHANU Treviño (48039)[facility] ([facility])[address] [place] [address] Nucleated RBC/100 WBC (Bld) [Ratio] 0.0 /100 WBCs Normal 0.0-0.0 [facility] Comment on above: Performed By: #### 5 7021-8 ####BHANU Treviño ([id number])[facility] ([facility])[address] [place] [address] Platelets (Bld) [#/Vol] 492 x10*3/uL High 150-450 [facility] Comment on above: Performed By: #### 5 7021-8 ####BHANU Treviño (86593)[facility] ([facility])[address] [place] [address] RBC (Bld) [#/Vol] 3.45 x10*6/uL Low 4.50-5.90 [facility] Comment on above: Performed By: #### 5 7021-8 ####BHANU GREGORY L ([id number])[facility] ([facility])[address]98 [place] [address] WBC (Bld) [#/Vol] 7.1 x10*3/uL Normal 4.4-11.3 [facility] Comment on above: Performed By: #### 5 7021-8 ####BHANU Treviño ([id number])[facility] ([facility])[address] [place] [address] Comprehensive metabolic 2000 panelon 01-30-2025 Albumin BCP dye [Mass/Vol] 2.3 g/dL Low 3.4-5.0 [facility] Comment on above: Performed By: #### 2 4323-8 ####BHANU Treviño ([id number])[facility] ([facility])[address] [place] [address] ALP [Catalytic activity/Vol] 80 U/L Normal 33-120 [facility] Comment on above: Performed By: #### 2 4323-8 ####BHANU Treviño ([id number])[facility] ([facility])[address] [place] [address] ALT With P-5'-P [Catalytic activity/Vol] 29 U/L Normal 10-52 [facility] Comment on above: Result Comment: Sydni ents treated with Sulfasalazine may generate falsely decreased results for ALT. Performed By: #### 2 4323-8 ####BHANU Treviño ([id number])[facility] ([facility])[address] [place] [address] Anion gap [Moles/Vol] 13 mmol/L Normal 10-20 [facility] Comment on above: Performed By: #### 2 4323-8 ####BHANU Treviño (60526)[facility] ([facility])[address] [place] [address] AST With P-5'-P [Catalytic activity/Vol] 33 U/L Normal 9-39 [facility] Comment on above: Performed By: #### 2 4323-8 ####BHANU GREGROY L ([id number])[facility] ([facility])[address] [place] [address] Bilirubin [Mass/Vol] 0.4 mg/dL Normal 0.0-1.2 [facility] Comment on above: Performed By: #### 2 4323-8 ####BHANU Treviño (52262)[facility] ([facility])[address] [place] [address] Calcium [Mass/Vol] 8.4 mg/dL Low 8.6-10.6 [facility] Comment on above: Performed By: #### 2 4323-8 ####BHANU Treviño (90296)[facility] ([facility])[address] [place] [address] Chloride [Moles/Vol] 102 mmol/L Normal 98-107 [facility] Comment on above: Performed By: #### 2 4323-8 ####BHANU Treviño (35072)[facility] ([facility])[address] [place] [address] CO2 [Moles/Vol] 29 mmol/L Normal 21-32 [facility] Comment on above: Performed By: #### 2 4323-8 ####BHANU Treviño ([id number])[facility] ([facility])[address] [place] [address] Creatinine [Mass/Vol] 1.06 mg/dL Normal 0.50-1.30 [facility] Comment on above: Performed By: #### 2 4323-8 ####BHANU Treviño (78797)[facility] ([facility])[address] [place] [address] Glomerular filtration rate/1.73 sq M.predicted 85 mL/min/1.73m*2 Normal >60 [facility] Comment on above: Result Comment: Calc ulations of estimated GFR are performed using the 2020 CKD-EPI Study Refit equation without the race variable for the IDMS-Traceable creatinine methods.https://jasn.asnjournals.org/content/ /ASN.8625170123 Performed By: #### 2 4323-8 ####BHANU Treviño ([id number])[facility] ([facility])[address] [place] [address] Glucose [Mass/Vol] 91 mg/dL Normal 74-99 [facility] Comment on above: Performed By: #### 2 4323-8 ####BHANU Treviño (81713)[facility] ([facility])[address] [place] [address] Potassium [Moles/Vol] 4.5 mmol/L Normal 3.5-5.3 [facility] Comment on above: Performed By: #### 2 4323-8 ####BHANU Treviño (13479)[facility] ([facility])[address] [place] [address] Protein [Mass/Vol] 6.1 g/dL Low 6.4-8.2 [facility] Comment on above: Performed By: #### 2 4323-8 ####BHANU Treviño (84574)[facility] ([facility])[address]44 [place] [address] Sodium [Moles/Vol] 139 mmol/L Normal 136-145 [facility] Comment on above: Performed By: #### 2 4323-8 ####BHANU Treviño (71542)[facility] ([facility])[address]49 [place] [address] Urea nitrogen [Mass/Vol] 11 mg/dL Normal 6-23 [facility] Comment on above: Performed By: #### 2 4323-8 ####BHANU Treviño ([id number])[facility] ([facility])[address] [place] [address] Fungus identifiedon 01-31-20 Fungus identified Cx Nom (Unsp spec) [facility] Comment on above: Performed By: #### 5 80-1 ####BHANU Treviño (52440)[facility] ([facility])[address] [place] [address] Fungus identified Cx Nom (Unsp spec) Abnormal [facility] Comment on above: Performed By: #### 5 80-1 ####BHANU Treviño (43762)[facility] ([facility])[address] [place] [address] Glucose Test strip manual (B ld) [Mass/Vol]on 01-30-2025 Glucose [Mass/Vol] 129 mg/dL High 74-99 [facility] Comment on above: Performed By: #### 2 341-6 ####BHANU Treviño (48123)[facility] ([facility])[address] [place] [address] Magnesiumon 01-30-2025 Magnesium [Mass/Vol] 2.05 mg/dL Normal 1.60-2.40 [facility] Comment on above: Performed By: #### 1 9123-9 ####BHANU Treviño ([id number])[facility] ([facility])[address] [place] [address] Surgical pathology studyon 0 01-30-2025 Surgical pathology study [facility] Comment on above: Order Comment: Pre-o p diagnosis:Hidradenitis suppurativa [L73.2]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] Blood type and Indirect anti body screen panel (Bld)on 01-29-2025 ABO group Nom (Bld) A Normal [facility] Comment on above: Performed By: #### 3 4532-2 ####BHANU Treviño ([id number])[facility] ([facility])[id number] [place], [place] [address] Blood group antibody screen Ql Negative [facility] Comment on above: Performed By: #### 3 4532-2 ####BHANU Treviño ([id number])[facility] ([facility])[address] [place] [address] D Ag Ql (Bld) Positive [facility] Comment on above: Performed By: #### 3 4532-2 ####BHANU Treviño (47803)[facility] ([facility])[address] [place] [address] CBC W Auto Differential pane l (Bld)on 01-29-2025 Basophils (Bld) [#/Vol] 0.07 x10*3/uL Normal 0.00-0.10 [facility] Comment on above: Performed By: #### 5 7021-8 ####BHANU Treviño ([id number])[facility] ([facility])[address] [place] [address] Basophils/100 WBC (Bld) 0.9 % Normal 0.0-2.0 [facility] Comment on above: Performed By: #### 5 7021-8 ####BHANU Treviño (44258)[facility] ([facility])[address] [place] [address] Eosinophils (Bld) [#/Vol] 0.16 x10*3/uL Normal 0.00-0.70 [facility] Comment on above: Performed By: #### 5 7021-8 ####BHANU Treviño ([id number])[facility] ([facility])[address] [place] [address] Eosinophils/100 WBC (Bld) 2.0 % Normal 0.0-6.0 [facility] Comment on above: Performed By: #### 5 7021-8 ####BHANU Treviño (64492)[facility] ([facility])[address] [place] [address] Erythrocyte distribution width (RBC) [Ratio] 20.0 % High 11.5-14.5 [facility] Comment on above: Performed By: #### 5 7021-8 ####BHANU Treviño ([id number])[facility] ([facility])[address] [place] [address] Hematocrit (Bld) [Volume fraction] 29.4 % Low 41.0-52.0 [facility] Comment on above: Performed By: #### 5 7021-8 ####BHANU Treviño (68621)[facility] ([facility])[address] [place] [address] Hemoglobin (Bld) [Mass/Vol] 8.8 g/dL Low 13.5-17.5 [facility] Comment on above: Performed By: #### 5 7021-8 ####BHANU Treviño (50306)[facility] ([facility])[address] [place] [address] Immature granulocytes (Bld) [#/Vol] 0.03 x10*3/uL Normal 0.00-0.70 [facility] Comment on above: Performed By: #### 5 7021-8 ####BHANU Treviño ([id number])[facility] ([facility])[address] [place] [address] Immature granulocytes/100 WBC (Bld) 0.4 % Normal 0.0-0.9 [facility] Comment on above: Result Comment: Christine ture Granulocyte Count (IG) includes promyelocytes, myelocytes and metamyelocytes but does not include bands. Percent differential counts (%) should be interpreted in the context of the absolute cell counts (cells/UL). Performed By: #### 5 7021-8 ####BHANU Treviño (03046)[facility] ([facility])[address] [place] [address] Lymphocytes (Bld) [#/Vol] 1.25 x10*3/uL Normal 1.20-4.80 [facility] Comment on above: Performed By: #### 5 7021-8 ####BHANU Treviño ([id number])[facility] ([facility])[address] [place] [address] Lymphocytes/100 WBC (Bld) 15.7 % Normal 13.0-44.0 [facility] Comment on above: Performed By: #### 5 7021-8 ####BHANU Treviño (73398)[facility] ([facility])[address] [place] [address] MCH (RBC) [Entitic mass] 23.7 pg Low 26.0-34.0 [facility] Comment on above: Performed By: #### 5 7021-8 ####BHANU Treviño (48979)[facility] ([facility])[address] [place] [address] MCHC (RBC) [Mass/Vol] 29.9 g/dL Low 32.0-36.0 [facility] Comment on above: Performed By: #### 5 7021-8 ####BHANU Treviño (38345)[facility] ([facility])[address] [place] [address] MCV (RBC) [Entitic vol] 79 fL Low 80-100 U [facility] Comment on above: Performed By: #### 5 7021-8 ####BHANU Treviño ([id number])[facility] ([facility])[address] [place] [address] Monocytes (Bld) [#/Vol] 0.98 x10*3/uL Normal 0.10-1.00 [facility] Comment on above: Performed By: #### 5 7021-8 ####BHANU Treviño (47964)[facility] ([facility])[address] [place] [address] Monocytes/100 WBC (Bld) 12.3 % Normal 2.0-10.0 [facility] Comment on above: Performed By: #### 5 7021-8 ####HBANU Treviño ([id number])[facility] ([facility])[address] [place] [address] Neutrophils (Bld) [#/Vol] 5.45 x10*3/uL Normal 1.20-7.70 [facility] Comment on above: Result Comment: Perc ent differential counts (%) should be interpreted in the context of the absolute cell counts (cells/uL). Performed By: #### 5 7021-8 ####BHANU Treviño ([id number])[facility] ([facility])[address] [place] [address] Neutrophils/100 WBC (Bld) 68.7 % Normal 40.0-80.0 [facility] Comment on above: Performed By: #### 5 7021-8 ####BHANU FLEMINGMOJOSEFA Treviño ([id number])[facility] ([facility])[address] [place] [address] Nucleated RBC/100 WBC (Bld) [Ratio] 0.0 /100 WBCs Normal 0.0-0.0 [facility] Comment on above: Performed By: #### 5 7021-8 ####BHANU Treviño ([id number])[facility] ([facility])[address] [place] [address] Platelets (Bld) [#/Vol] 537 x10*3/uL High 150-450 [facility] Comment on above: Performed By: #### 5 7021-8 ####BHANU Treviño ([id number])[facility] ([facility])[address] [place] [address] RBC (Bld) [#/Vol] 3.72 x10*6/uL Low 4.50-5.90 [facility] Comment on above: Performed By: #### 5 7021-8 ####BHANU Treviño ([id number])[facility] ([facility])[address] [place] [address] WBC (Bld) [#/Vol] 7.9 x10*3/uL Normal 4.4-11.3 [facility] Comment on above: Performed By: #### 5 7021-8 ####BHANU Treviño ([id number])[facility] ([facility])[address] [place] [address] Comprehensive metabolic 2000 panelon 01-29-2025 Albumin BCP dye [Mass/Vol] 2.4 g/dL Low 3.4-5.0 [facility] Comment on above: Performed By: #### 2 4323-8 ####BHANU Treviño ([id number])[facility] ([facility])[address] [place] [address] ALP [Catalytic activity/Vol] 70 U/L Normal 33-120 [facility] Comment on above: Performed By: #### 2 4323-8 ####BHANU Treviño ([id number])[facility] ([facility])[address] [place] [address] ALT With P-5'-P [Catalytic activity/Vol] 28 U/L Normal 10-52 [facility] Comment on above: Result Comment: Sydni ents treated with Sulfasalazine may generate falsely decreased results for ALT. Performed By: #### 2 4323-8 ####BHANU Treviño ([id number])[facility] ([facility])[address] [facility] [place] [address] Anion gap [Moles/Vol] 11 mmol/L Normal 10-20 [facility] Comment on above: Performed By: #### 2 4323-8 ####BHANU Treviño ([id number])[facility] [facility] ([facility])[address] [place] [address] AST With P-5'-P [Catalytic activity/Vol] 28 U/L Normal 9-39 [facility] Comment on above: Performed By: #### 2 4323-8 ####BHANU Treviño ([id number])[facility] ([facility])[address] [place] [address] Bilirubin [Mass/Vol] 0.3 mg/dL Normal 0.0-1.2 [facility] Comment on above: Performed By: #### 2 4323-8 ####BHANU Treviño ([id number])[facility] ([facility])[address] [place] [address] Calcium [Mass/Vol] 8.2 mg/dL Low 8.6-10.6 [facility] Comment on above: Performed By: #### 2 4323-8 ####BHANU Treviño ([id number])[facility] ([facility])[address] [place] [address] Chloride [Moles/Vol] 102 mmol/L Normal 98-107 [facility] Comment on above: Performed By: #### 2 4323-8 ####BHANU Treviño ([id number])[facility] ([facility])[address] [place] [address] CO2 [Moles/Vol] 28 mmol/L Normal 21-32 [facility] Comment on above: Performed By: #### 2 4323-8 ####BHANU Treviño ([id number])[facility] ([facility])[address] [place] [address] Creatinine [Mass/Vol] 1.07 mg/dL Normal 0.50-1.30 [facility] Comment on above: Performed By: #### 2 4323-8 ####BHANU Treviño ([id number])[facility] ([facility])[address] [place] [address] Glomerular filtration rate/1.73 sq M.predicted 84 mL/min/1.73m*2 Normal >60 [facility] Comment on above: Result Comment: Calc ulations of estimated GFR are performed using the 2020 CKD-EPI Study Refit equation without the race variable for the IDMS-Traceable creatinine methods.https://jasn.asnjournals.org/content/early/ /ASN.9017241903 Performed By: #### 2 4323-8 ####BHANU Treviño ([id number])[facility] ([facility])[address] [place] [address] Glucose [Mass/Vol] 99 mg/dL Normal 74-99 [facility] Comment on above: Performed By: #### 2 4323-8 ####BHANU Treviño ([id number])[facility] ([facility])[address] [place] [address] Potassium [Moles/Vol] 4.2 mmol/L Normal 3.5-5.3 [facility] Comment on above: Performed By: #### 2 4323-8 ####BHANU GREGORY L ([id number])[facility] ([facility])[address] [place] [address] Protein [Mass/Vol] 6.4 g/dL Normal 6.4-8.2 [facility] Comment on above: Performed By: #### 2 4323-8 ####BHANU Treviño ([id number])[facility] ([facility])[address] [place] [address] Sodium [Moles/Vol] 137 mmol/L Normal 136-145 [facility] Comment on above: Performed By: #### 2 4323-8 ####BHANU Treviño ([id number])[facility] ([facility])[address] [place] [address] Urea nitrogen [Mass/Vol] 12 mg/dL Normal 6-23 [facility] Comment on above: Performed By: #### 2 4323-8 ####BHANU Treviño ([id number])[facility] ([facility])[address] [place] [address] Creatine kinaseon 01-29-2025 CK [Catalytic activity/Vol] 58 U/L Normal 0-325 [facility] Comment on above: Performed By: #### 2 157-6 ####BHANU Treviño ([id number])[facility] ([facility])[address] [place] [address] Magnesiumon 01-29-2025 Magnesium [Mass/Vol] 1.81 mg/dL Normal 1.60-2.40 [facility] Comment on above: Performed By: #### 1 9123-9 ####BHANU Treviño ([id number])[facility] ([facility])[address] [place] [address] CBC W Auto Differential pane l (Bld)on 01-28-2025 Basophils (Bld) [#/Vol] 0.07 x10*3/uL Normal 0.00-0.10 [facility] Comment on above: Performed By: #### 5 7021-8 ####BHANU Treviño ([id number])[facility] ([facility])[address] [place] [address] Basophils/100 WBC (Bld) 1.0 % Normal 0.0-2.0 [facility] Comment on above: Performed By: #### 5 7021-8 ####BHANU Treviño ([id number])[facility] ([facility])[address] [place] [address] Eosinophils (Bld) [#/Vol] 0.44 x10*3/uL Normal 0.00-0.70 [facility] Comment on above: Performed By: #### 5 7021-8 ####BHANU Treviño ([id number])[facility] ([facility])[address] [place] [address] Eosinophils/100 WBC (Bld) 6.0 % Normal 0.0-6.0 [facility] Comment on above: Performed By: #### 5 7021-8 ####BHANU Treviño ([id number])[facility] ([facility])[address] [place] [address] Erythrocyte distribution width (RBC) [Ratio] 19.7 % High 11.5-14.5 [facility] Comment on above: Performed By: #### 5 7021-8 ####BHANU Treviño ([id number])[facility] ([facility])[address] [place] [address] Hematocrit (Bld) [Volume fraction] 26.4 % Low 41.0-52.0 [facility] Comment on above: Performed By: #### 5 7021-8 ####BHANU Treviño ([id number])[facility] ([facility])[address] [place] [address] Hemoglobin (Bld) [Mass/Vol] 8.5 g/dL Low 13.5-17.5 [facility] Comment on above: Performed By: #### 5 7021-8 ####BHANU Treviño ([id number])[facility] ([facility])[address] [place] [address] Immature granulocytes (Bld) [#/Vol] 0.04 x10*3/uL Normal 0.00-0.70 [facility] Comment on above: Performed By: #### 5 7021-8 ####BHANU Treviño ([id number])[facility] ([facility])[address] [place] [address] Immature granulocytes/100 WBC (Bld) 0.5 % Normal 0.0-0.9 [facility] Comment on above: Result Comment: Christine ture Granulocyte Count (IG) includes promyelocytes, myelocytes and metamyelocytes but does not include bands. Percent differential counts (%) should be interpreted in the context of the absolute cell counts (cells/UL). Performed By: #### 5 7021-8 ####BHANU Treviño ([id number])[facility] ([facility])[address] [place] [address] Lymphocytes (Bld) [#/Vol] 1.21 x10*3/uL Normal 1.20-4.80 [facility] Comment on above: Performed By: #### 5 7021-8 ####BHANU Treviño ([id number])[facility] ([facility])[address] [place] [address] Lymphocytes/100 WBC (Bld) 16.4 % Normal 13.0-44.0 [facility] Comment on above: Performed By: #### 5 7021-8 ####BHANU Treviño ([id number])[facility] ([facility])[address] [place] [address] MCH (RBC) [Entitic mass] 24.6 pg Low 26.0-34.0 [facility] Comment on above: Performed By: #### 5 7021-8 ####BHANU Treviño ([id number])[facility] ([facility])[address] [place] [address] MCHC (RBC) [Mass/Vol] 32.2 g/dL Normal 32.0-36.0 [facility] Comment on above: Performed By: #### 5 7021-8 ####BHANU Treviño ([id number])[facility] ([facility])[address] [place] [address] MCV (RBC) [Entitic vol] 77 fL Low 80-100 U [facility] Comment on above: Performed By: #### 5 7021-8 ####BHANU Treviño ([id number])[facility] ([facility])[address] [place] [address] Monocytes (Bld) [#/Vol] 1.09 x10*3/uL High 0.10-1.00 [facility] Comment on above: Performed By: #### 5 7021-8 ####BHANU Treviño ([id number])[facility] ([facility])[address] [place] [address] Monocytes/100 WBC (Bld) 14.8 % Normal 2.0-10.0 [facility] Comment on above: Performed By: #### 5 7021-8 ####BHANU Treviño ([id number])[facility] ([facility])[address] [place] [address] Neutrophils (Bld) [#/Vol] 4.51 x10*3/uL Normal 1.20-7.70 [facility] Comment on above: Result Comment: Perc ent differential counts (%) should be interpreted in the context of the absolute cell counts (cells/uL). Performed By: #### 5 7021-8 ####BHANU Treviño ([id number])[facility] ([facility])[address] [place] [address] Neutrophils/100 WBC (Bld) 61.3 % Normal 40.0-80.0 [facility] Comment on above: Performed By: #### 5 7021-8 ####BHANU Treviño (28086)[facility] ([facility])[address] [place] [address] Nucleated RBC/100 WBC (Bld) [Ratio] 0.0 /100 WBCs Normal 0.0-0.0 [facility] Comment on above: Performed By: #### 5 7021-8 ####BHANU Treviño (21802)[facility] ([facility])[address] [place] [address] Platelets (Bld) [#/Vol] 620 x10*3/uL High 150-450 [facility] Comment on above: Performed By: #### 5 7021-8 ####BHANU Treviño ([id number])[facility] ([facility])[address] [place] [address] RBC (Bld) [#/Vol] 3.45 x10*6/uL Low 4.50-5.90 [facility] Comment on above: Performed By: #### 5 7021-8 ####BHANU Treviño ([id number])[facility] ([facility])[address] [place] [address] WBC (Bld) [#/Vol] 7.4 x10*3/uL Normal 4.4-11.3 [facility] Comment on above: Performed By: #### 5 7021-8 ####BHANU Treviño ([id number])[facility] ([facility])[address] [place] [address] Comprehensive metabolic 2000 panelon 01-28-2025 Albumin BCP dye [Mass/Vol] 2.3 g/dL Low 3.4-5.0 [facility] Comment on above: Performed By: #### 2 4323-8 ####BHANU Treviño ([id number])[facility] ([facility])[address] [place] [address] ALP [Catalytic activity/Vol] 72 U/L Normal 33-120 [facility] Comment on above: Performed By: #### 2 4323-8 ####BHANU GREGORY L ([id number])[facility] ([facility])[address] [place] [address] ALT With P-5'-P [Catalytic activity/Vol] 35 U/L Normal 10-52 [facility] Comment on above: Result Comment: Sydni ents treated with Sulfasalazine may generate falsely decreased results for ALT. Performed By: #### 2 4323-8 ####BHANU Treviño ([id number])[facility] ([facility])[address] [place] [address] Anion gap [Moles/Vol] 13 mmol/L Normal 10-20 [facility] Comment on above: Performed By: #### 2 4323-8 ####BHANU Treviño ([id number])[facility] ([facility])[address] [place] [address] AST With P-5'-P [Catalytic activity/Vol] 32 U/L Normal 9-39 [facility] Comment on above: Performed By: #### 2 4323-8 ####BHANU Treviño ([id number])[facility] ([facility])[address] [place] [address] Bilirubin [Mass/Vol] 0.3 mg/dL Normal 0.0-1.2 [facility] Comment on above: Performed By: #### 2 4323-8 ####BHANU Treviño ([id number])[facility] ([facility])[address] [place] [address] Calcium [Mass/Vol] 8.0 mg/dL Low 8.6-10.6 [facility] Comment on above: Performed By: #### 2 4323-8 ####BHANU Treviño (92262)[facility] ([facility])[address] [place] [address] Chloride [Moles/Vol] 102 mmol/L Normal 98-107 [facility] Comment on above: Performed By: #### 2 4323-8 ####BHANU Treviño ([id number])[facility] ([facility])[address] [place] [address] CO2 [Moles/Vol] 28 mmol/L Normal 21-32 [facility] Comment on above: Performed By: #### 2 4323-8 ####BHANU Treviño ([id number])[facility] ([facility])[address] [place] [address] Creatinine [Mass/Vol] 1.07 mg/dL Normal 0.50-1.30 [facility] Comment on above: Performed By: #### 2 4323-8 ####BHANU Treviño ([id number])[facility] ([facility])[address] [place] [address] Glomerular filtration rate/1.73 sq M.predicted 84 mL/min/1.73m*2 Normal >60 [facility] Comment on above: Result Comment: Calc ulations of estimated GFR are performed using the 2020 CKD-EPI Study Refit equation without the race variable for the IDMS-Traceable creatinine methods.https://jasn.asnjournals.org/content/early/ /ASN.9296835183 Performed By: #### 2 4323-8 ####BHANU GREGORY L ([id number])[facility] ([facility])[address] [place] [address] Glucose [Mass/Vol] 113 mg/dL High 74-99 [facility] Comment on above: Performed By: #### 2 4323-8 ####BHANU GREGORY L ([id number])[facility] ([facility])[address] [place] [address] Potassium [Moles/Vol] 4.5 mmol/L Normal 3.5-5.3 [facility] Comment on above: Performed By: #### 2 4323-8 ####BHANU RGEGORY L (92220)[facility] ([facility])[address] [place] [address] Protein [Mass/Vol] 6.0 g/dL Low 6.4-8.2 [facility] Comment on above: Performed By: #### 2 4323-8 ####BHANU MATOSER L ([id number])[facility] ([facility])[address] [place] [address] Sodium [Moles/Vol] 138 mmol/L Normal 136-145 [facility] Comment on above: Performed By: #### 2 4323-8 ####BHANU MATOSER L ([id number])[facility] ([facility])[address] [place] [address] Urea nitrogen [Mass/Vol] 11 mg/dL Normal 6-23 [facility] Comment on above: Performed By: #### 2 4323-8 ####BHANU Treviño (50044)[facility] ([facility])[address] [place] [address] Lactateon 01-28-2025 Lactate [Moles/Vol] 1.4 mmol/L Normal 0.4-2.0 [facility] Comment on above: Order Comment: Venip uncture immediately after or during the administration of Metamizole may lead to falsely low results. Testing should be performed immediately prior to Metamizole dosing. Performed By: #### 2 524-7 ####BHANU Treviño ([id number])[facility] ([facility])[address] [place] [address] Magnesiumon 01-28-2025 Magnesium [Mass/Vol] 1.92 mg/dL Normal 1.60-2.40 [facility] Comment on above: Performed By: #### 1 9123-9 ####BHANU Treviño ([id number])[facility] ([facility])[address] [place] [address] Blood type and Indirect anti body screen panel (Bld)on 01-27-2025 ABO group Nom (Bld) A Normal [facility] Comment on above: Performed By: #### 3 4532-2 ####BHANU Treviño ([id number])[facility] ([facility])[address] [place] [address] Blood group antibody screen Ql Negative [facility] Comment on above: Performed By: #### 3 4532-2 ####BHANU Treviño ([id number])[facility] ([facility])[address] [place] [address] D Ag Ql (Bld) Positive [facility] Comment on above: Performed By: #### 3 4532-2 ####BHANU Treviño ([id number])[facility] ([facility])[address] [place] [address] CBC W Auto Differential pane l (Bld)on 01-27-2025 Basophils (Bld) [#/Vol] 0.08 x10*3/uL Normal 0.00-0.10 [facility] Comment on above: Performed By: #### 5 7021-8 ####BHANU Treviño ([id number])[facility] ([facility])[address] [place] [address] Basophils/100 WBC (Bld) 1.1 % Normal 0.0-2.0 [facility] Comment on above: Performed By: #### 5 7021-8 ####BHANU Treviño (28747)[facility] ([facility])[address] [place] [address] Eosinophils (Bld) [#/Vol] 0.07 x10*3/uL Normal 0.00-0.70 [facility] Comment on above: Performed By: #### 5 7021-8 ####BHANU Treviño (05208)[facility] ([facility])[address] [place] [address] Eosinophils/100 WBC (Bld) 0.9 % Normal 0.0-6.0 [facility] Comment on above: Performed By: #### 5 7021-8 ####BHANU Treviño (44191)[facility] ([facility])[address] [place] [address] Erythrocyte distribution width (RBC) [Ratio] 19.8 % High 11.5-14.5 [facility] Comment on above: Performed By: #### 5 7021-8 ####BHANU Treviño (50701)[facility] ([facility])[address] [place] [address] Hematocrit (Bld) [Volume fraction] 27.5 % Low 41.0-52.0 [facility] Comment on above: Performed By: #### 5 7021-8 ####BHANU Treviño (49308)[facility] ([facility])[address] [place] [address] Hemoglobin (Bld) [Mass/Vol] 8.5 g/dL Low 13.5-17.5 [facility] Comment on above: Performed By: #### 5 7021-8 ####BHANU Treviño (96638)[facility] ([facility])[address] [place] [address] Immature granulocytes (Bld) [#/Vol] 0.03 x10*3/uL Normal 0.00-0.70 [facility] Comment on above: Performed By: #### 5 7021-8 ####BHANU Treviño (57949)[facility] ([facility])[address] [place] [address] Immature granulocytes/100 WBC (Bld) 0.4 % Normal 0.0-0.9 [facility] Comment on above: Result Comment: Christine ture Granulocyte Count (IG) includes promyelocytes, myelocytes and metamyelocytes but does not include bands. Percent differential counts (%) should be interpreted in the context of the absolute cell counts (cells/UL). Performed By: #### 5 7021-8 ####BHANU Treviño (96225)[facility] ([facility])[address] [place] [address] Lymphocytes (Bld) [#/Vol] 1.18 x10*3/uL Low 1.20-4.80 [facility] Comment on above: Performed By: #### 5 7021-8 ####BHANU Treviño (46738)[facility] ([facility])[address] [place] [address] Lymphocytes/100 WBC (Bld) 15.7 % Normal 13.0-44.0 [facility] Comment on above: Performed By: #### 5 7021-8 ####BHANU Treviño (95182)[facility] ([facility])[address] [place] [address] MCH (RBC) [Entitic mass] 23.9 pg Low 26.0-34.0 [facility] Comment on above: Performed By: #### 5 7021-8 ####BHANU Treviño (99191)[facility] ([facility])[address] [place] [address] MCHC (RBC) [Mass/Vol] 30.9 g/dL Low 32.0-36.0 [facility] Comment on above: Performed By: #### 5 7021-8 ####BHANU Treviño ([id number])[facility] ([facility])[address] [place] [address] MCV (RBC) [Entitic vol] 78 fL Low 80-100 U [facility] Comment on above: Performed By: #### 5 7021-8 ####BHANU Treviño (65437)[facility] ([facility])[address] [place] [address] Monocytes (Bld) [#/Vol] 1.05 x10*3/uL High 0.10-1.00 [facility] Comment on above: Performed By: #### 5 7021-8 ####BHANU Treviño ([id number])[facility] ([facility])[address] [place] [address] Monocytes/100 WBC (Bld) 14.0 % Normal 2.0-10.0 [facility] Comment on above: Performed By: #### 5 7021-8 ####BHANU Treviño (73089)[facility] ([facility])[address] [place] [address] Neutrophils (Bld) [#/Vol] 5.09 x10*3/uL Normal 1.20-7.70 [facility] Comment on above: Result Comment: Perc ent differential counts (%) should be interpreted in the context of the absolute cell counts (cells/uL). Performed By: #### 5 7021-8 ####BHANU Treviño ([id number])[facility] ([facility])[address] [place] [address] Neutrophils/100 WBC (Bld) 67.9 % Normal 40.0-80.0 [facility] Comment on above: Performed By: #### 5 7021-8 ####BHANU Treviño (68053)[facility] ([facility])[address] [place] [address] Nucleated RBC/100 WBC (Bld) [Ratio] 0.0 /100 WBCs Normal 0.0-0.0 [facility] Comment on above: Performed By: #### 5 7021-8 ####BHANU Treviño ([id number])[facility] ([facility])[address] [place] [address] Platelets (Bld) [#/Vol] 644 x10*3/uL High 150-450 [facility] Comment on above: Performed By: #### 5 7021-8 ####BHANU Treviño ([id number])[facility] ([facility])[id number] [place] [address] RBC (Bld) [#/Vol] 3.55 x10*6/uL Low 4.50-5.90 [facility] Comment on above: Performed By: #### 5 7021-8 ####BHANU Treviño ([id number])[facility] ([facility])[address] [place] [address] WBC (Bld) [#/Vol] 7.5 x10*3/uL Normal 4.4-11.3 [facility] Comment on above: Performed By: #### 5 7021-8 ####BHANU Treviño ([id number])[facility] ([facility])[address] [place] [address] Comprehensive metabolic 2000 panelon 01-27-2025 Albumin BCP dye [Mass/Vol] 2.3 g/dL Low 3.4-5.0 [facility] Comment on above: Performed By: #### 2 4323-8 ####BHANU Treviño ([id number])[facility] ([facility])[address] [place] [address] ALP [Catalytic activity/Vol] 70 U/L Normal 33-120 [facility] Comment on above: Performed By: #### 2 4323-8 ####BHANU Treviño ([id number])[facility] ([facility])[address] [place] [address] ALT With P-5'-P [Catalytic activity/Vol] 40 U/L Normal 10-52 [facility] Comment on above: Result Comment: Sydni ents treated with Sulfasalazine may generate falsely decreased results for ALT. Performed By: #### 2 4323-8 ####BHANU GREGORY L ([id number])[facility] ([facility])[address] [place] [address] Anion gap [Moles/Vol] 11 mmol/L Normal 10-20 [facility] Comment on above: Performed By: #### 2 432-8 ####BHANU Treviño ([id number])[facility] ([facility])[address] [place] [address] AST With P-5'-P [Catalytic activity/Vol] 53 U/L High 9-39 [facility] Comment on above: Performed By: #### 2 4323-8 ####BHANU GREGORY L ([id number])[facility] ([facility])[address] [place] [address] Bilirubin [Mass/Vol] 0.4 mg/dL Normal 0.0-1.2 [facility] Comment on above: Performed By: #### 2 4323-8 ####BHANU GREGORY L ([id number])[facility] ([facility])[address] [place] [address] Calcium [Mass/Vol] 8.1 mg/dL Low 8.6-10.6 [facility] Comment on above: Performed By: #### 2 4323-8 ####BHANU GREGORY L ([id number])[facility] ([facility])[address] [place] [address] Chloride [Moles/Vol] 101 mmol/L Normal 98-107 [facility] Comment on above: Performed By: #### 2 4323-8 ####BHANU Treviño ([id number])[facility] ([facility])[address] [place] [address] CO2 [Moles/Vol] 29 mmol/L Normal 21-32 [facility] Comment on above: Performed By: #### 2 4323-8 ####BHANU Treviño ([id number])[facility] ([facility])[address] [place] [address] Creatinine [Mass/Vol] 1.22 mg/dL Normal 0.50-1.30 [facility] Comment on above: Performed By: #### 2 4323-8 ####BHANU Treviño ([id number])[facility] ([facility])[address] [place] [address] Glomerular filtration rate/1.73 sq M.predicted 72 mL/min/1.73m*2 Normal >60 [facility] Comment on above: Result Comment: Calc ulations of estimated GFR are performed using the 2020 CKD-EPI Study Refit equation without the race variable for the IDMS-Traceable creatinine methods.https://jasn.asnjournals.org/content// /ASN.7291529124 Performed By: #### 2 4323-8 ####BHANU Treviño ([id number])[facility] ([facility])[address] [place] [address] Glucose [Mass/Vol] 86 mg/dL Normal 74-99 [facility] Comment on above: Performed By: #### 2 4323-8 ####BHANU Treviño ([id number])[facility] ([facility])[address] [place] [address] Potassium [Moles/Vol] 4.1 mmol/L Normal 3.5-5.3 [facility] Comment on above: Performed By: #### 2 4323-8 ####BHANU Treviño ([id number])[facility] ([facility])[address] [place] [address] Protein [Mass/Vol] 6.5 g/dL Normal 6.4-8.2 [facility] Comment on above: Performed By: #### 2 4323-8 ####BHANU Treviño ([id number])[facility] ([facility])[address] [place] [address] Sodium [Moles/Vol] 137 mmol/L Normal 136-145 [facility] Comment on above: Performed By: #### 2 4323-8 ####BHANU Treviño ([id number])[facility] ([facility])[address] [place] [address] Urea nitrogen [Mass/Vol] 8 mg/dL Normal 6-23 [facility] Comment on above: Performed By: #### 2 4323-8 ####BHANU Treviño ([id number])[facility] ([facility])[address] [place] [address] Magnesiumon 01-27-2025 Magnesium [Mass/Vol] 1.92 mg/dL Normal 1.60-2.40 [facility] Comment on above: Performed By: #### 1 9123-9 ####BHANU Treviño ([id number])[facility] ([facility])[address] [place] [address] CBC W Auto Differential pane l (Bld)on 01-26-2025 Basophils (Bld) [#/Vol] 0.07 x10*3/uL Normal 0.00-0.10 [facility] Comment on above: Performed By: #### 5 7021-8 ####BHANU Treviño ([id number])[facility] ([facility])[id number] [place] [address] Basophils/100 WBC (Bld) 0.8 % Normal 0.0-2.0 [facility] Comment on above: Performed By: #### 5 7021-8 ####BHANU Treviño ([id number])[facility] ([facility])[address] [place] [address] Eosinophils (Bld) [#/Vol] 0.40 x10*3/uL Normal 0.00-0.70 [facility] Comment on above: Performed By: #### 5 7021-8 ####BHANU Treviño ([id number])[facility] ([facility])[address] [place] [address] Eosinophils/100 WBC (Bld) 4.6 % Normal 0.0-6.0 [facility] Comment on above: Performed By: #### 5 7021-8 ####BHANU Treviño ([id number])[facility] ([facility])[address] [place] [address] Erythrocyte distribution width (RBC) [Ratio] 19.9 % High 11.5-14.5 [facility] Comment on above: Performed By: #### 5 7021-8 ####BHANU Treviño ([id number])[facility] ([facility])[address] [place] [address] Hematocrit (Bld) [Volume fraction] 28.3 % Low 41.0-52.0 [facility] Comment on above: Performed By: #### 5 7021-8 ####BHANU Treviño ([id number])[facility] ([facility])[address] [place] [address] Hemoglobin (Bld) [Mass/Vol] 8.7 g/dL Low 13.5-17.5 [facility] Comment on above: Performed By: #### 5 7021-8 ####BHANU Treviño ([id number])[facility] ([facility])[address] [place] [address] Immature granulocytes (Bld) [#/Vol] 0.04 x10*3/uL Normal 0.00-0.70 [facility] Comment on above: Performed By: #### 5 7021-8 ####BHANU Treviño ([id number])[facility] ([facility])[address] [place] [address] Immature granulocytes/100 WBC (Bld) 0.5 % Normal 0.0-0.9 [facility] Comment on above: Result Comment: Christine ture Granulocyte Count (IG) includes promyelocytes, myelocytes and metamyelocytes but does not include bands. Percent differential counts (%) should be interpreted in the context of the absolute cell counts (cells/UL). Performed By: #### 5 7021-8 ####BHANU Treviño ([id number])[facility] ([facility])[address] [place] [address] Lymphocytes (Bld) [#/Vol] 1.23 x10*3/uL Normal 1.20-4.80 [facility] Comment on above: Performed By: #### 5 7021-8 ####BHANU Treviño ([id number])[facility] ([facility])[address] [place] [address] Lymphocytes/100 WBC (Bld) 14.1 % Normal 13.0-44.0 [facility] Comment on above: Performed By: #### 5 7021-8 ####BHANU Treviño ([id number])[facility] ([facility])[address] [place] [address] MCH (RBC) [Entitic mass] 24.2 pg Low 26.0-34.0 [facility] Comment on above: Performed By: #### 5 7021-8 ####BHANU Treviño ([id number])[facility] ([facility])[address] [place] [address] MCHC (RBC) [Mass/Vol] 30.7 g/dL Low 32.0-36.0 [facility] Comment on above: Performed By: #### 5 7021-8 ####BHANU Treviño ([id number])[facility] ([facility])[address] [place] [address] MCV (RBC) [Entitic vol] 79 fL Low 80-100 U [facility] Comment on above: Performed By: #### 5 7021-8 ####BHANU Treviño (18530)[facility] ([facility])[address] [place] [address] Monocytes (Bld) [#/Vol] 1.06 x10*3/uL High 0.10-1.00 [facility] Comment on above: Performed By: #### 5 7021-8 ####BHANU Treviño ([id number])[facility] ([facility])[address] [place] [address] Monocytes/100 WBC (Bld) 12.2 % Normal 2.0-10.0 [facility] Comment on above: Performed By: #### 5 7021-8 ####BHANU Treviño ([id number])[facility] ([facility])[address]79 [place] [address] Neutrophils (Bld) [#/Vol] 5.92 x10*3/uL Normal 1.20-7.70 [facility] Comment on above: Result Comment: Perc ent differential counts (%) should be interpreted in the context of the absolute cell counts (cells/uL). Performed By: #### 5 7021-8 ####BHANU Treviño ([id number])[facility] ([facility])[address] [place] [address] Neutrophils/100 WBC (Bld) 67.8 % Normal 40.0-80.0 [facility] Comment on above: Performed By: #### 5 7021-8 ####BHANU Treviño ([id number])[facility] ([facility])[address]27 [place] [address] Nucleated RBC/100 WBC (Bld) [Ratio] 0.0 /100 WBCs Normal 0.0-0.0 [facility] Comment on above: Performed By: #### 5 7021-8 ####BHANU FLEMINGMOTZER L (25841)[facility] ([facility])[address] [place] [address] Platelets (Bld) [#/Vol] 713 x10*3/uL High 150-450 [facility] Comment on above: Performed By: #### 5 7021-8 ####BHANU Treviño ([id number])[facility] ([facility])[address] [place] [address] RBC (Bld) [#/Vol] 3.60 x10*6/uL Low 4.50-5.90 [facility] Comment on above: Performed By: #### 5 7021-8 ####BHANU Treviño ([id number])[facility] ([facility])[address] [place] [address] WBC (Bld) [#/Vol] 8.7 x10*3/uL Normal 4.4-11.3 [facility] Comment on above: Performed By: #### 5 7021-8 ####BHANU Treviño ([id number])[facility] ([facility])[address] [place] [address] Comprehensive metabolic 2000 panelon 01-26-2025 Albumin BCP dye [Mass/Vol] 2.4 g/dL Low 3.4-5.0 [facility] Comment on above: Performed By: #### 2 4323-8 ####BHANU Treviño ([id number])[facility] ([facility])[address] [place] [address] ALP [Catalytic activity/Vol] 74 U/L Normal 33-120 [facility] Comment on above: Performed By: #### 2 4323-8 ####BHANU Treviño ([id number])[facility] ([facility])[address] [place] [address] ALT With P-5'-P [Catalytic activity/Vol] 38 U/L Normal 10-52 [facility] Comment on above: Result Comment: Sydni ents treated with Sulfasalazine may generate falsely decreased results for ALT. Performed By: #### 2 4323-8 ####BHANU Treviño ([id number])[facility] ([facility])[address] [place] [address] Anion gap [Moles/Vol] 12 mmol/L Normal 10-20 [facility] Comment on above: Performed By: #### 2 4323-8 ####BHANU Treviño (14001)[facility] ([facility])[address] [place] [address] AST With P-5'-P [Catalytic activity/Vol] 55 U/L High 9-39 [facility] Comment on above: Performed By: #### 2 4323-8 ####BHANU Treviño ([id number])[facility] ([facility])[address] [place] [address] Bilirubin [Mass/Vol] 0.3 mg/dL Normal 0.0-1.2 [facility] Comment on above: Performed By: #### 2 4323-8 ####BHANU Treviño ([id number])[facility] ([facility])[address]34 [place] [address] Calcium [Mass/Vol] 8.3 mg/dL Low 8.6-10.6 [facility] Comment on above: Performed By: #### 2 4323-8 ####BHANU Treviño ([id number])[facility] ([facility])[address] [place] [address] Chloride [Moles/Vol] 102 mmol/L Normal 98-107 [facility] Comment on above: Performed By: #### 2 4323-8 ####BHANU Treviño ([id number])[facility] ([facility])[address] [place] [address] CO2 [Moles/Vol] 29 mmol/L Normal 21-32 [facility] Comment on above: Performed By: #### 2 4323-8 ####BHANU Treviño (24957)[facility] ([facility])[address] [place] [address] Creatinine [Mass/Vol] 1.29 mg/dL Normal 0.50-1.30 [facility] Comment on above: Performed By: #### 2 4323-8 ####BHANU Treviño ([id number])[facility] ([facility])[address] [place] [address] Glomerular filtration rate/1.73 sq M.predicted 67 mL/min/1.73m*2 Normal >60 [facility] Comment on above: Result Comment: Calc ulations of estimated GFR are performed using the 2020 CKD-EPI Study Refit equation without the race variable for the IDMS-Traceable creatinine methods.https://jasn.asnjournals.org/content/ /ASN.3130869317 Performed By: #### 2 4323-8 ####BHANU Treviño (64729)[facility] ([facility])[address] [place] [address] Glucose [Mass/Vol] 100 mg/dL High 74-99 [facility] Comment on above: Performed By: #### 2 4323-8 ####BHANU GREGORY L (23014)[facility] ([facility])[address] [place] [address] Potassium [Moles/Vol] 4.0 mmol/L Normal 3.5-5.3 [facility] Comment on above: Performed By: #### 2 4323-8 ####BHANU GREGORY L ([id number])[facility] ([facility])[address] [place] [address] Protein [Mass/Vol] 6.6 g/dL Normal 6.4-8.2 [facility] Comment on above: Performed By: #### 2 4323-8 ####BHANU GREGORY L (49145)[facility] ([facility])[address] [place] [address] Sodium [Moles/Vol] 139 mmol/L Normal 136-145 [facility] Comment on above: Performed By: #### 2 4323-8 ####BHANU GREGORY L (45823)[facility] ([facility])[address] [place] [address] Urea nitrogen [Mass/Vol] 9 mg/dL Normal 6-23 [facility] Comment on above: Performed By: #### 2 4323-8 ####BHANU FLEMINGMOJOSEFA L (01444)[facility] ([facility])[address] [place] [address] Magnesiumon 01-26-2025 Magnesium [Mass/Vol] 2.06 mg/dL Normal 1.60-2.40 [facility] Comment on above: Performed By: #### 1 9123-9 ####BHANU Treviño (53677)[facility] ([facility])[address] [place] [address] CBC W Auto Differential pane l (Bld)on 01-25-2025 Erythrocyte distribution width (RBC) [Ratio] 19.8 % High 11.5-14.5 [facility] Comment on above: Order Comment: The p [...] Performed By: #### 5 7021-8 ####BHANU Treviño (15151)[facility] ([facility])[address] [place] [address] Hematocrit (Bld) [Volume fraction] 28.8 % Low 41.0-52.0 [facility] Comment on above: Order Comment: The p [...] being reported. Performed By: #### 5 7021-8 ###CASSY Treviño ([id number])[facility] ([facility])[address] [place] [address] Hemoglobin (Bld) [Mass/Vol] 9.0 g/dL Low 13.5-17.5 [facility] Comment on above: Order Comment: The p [...] Performed By: #### 5 7021-8 ####BHANU Treviño (60014)[facility] ([facility])[address] [place] [address] Immature granulocytes (Bld) [#/Vol] 0.06 x10*3/uL Normal 0.00-0.70 [facility] Comment on above: Order Comment: The p [...] Performed By: #### 5 7021-8 ####BHANU Treviño (99745)[facility] ([facility])[address] [place] [address] Immature granulocytes/100 WBC (Bld) 0.6 % Normal 0.0-0.9 [facility] Comment on above: Order Comment: The p [...] Performed By: #### 5 7021-8 ####BHANU Treviño (95196)[facility] ([facility])[address] [place] [address] MCH (RBC) [Entitic mass] 24.6 pg Low 26.0-34.0 [facility] Comment on above: Order Comment: The p [...] Performed By: #### 5 7021-8 ####BHANU Treviño (43234)[facility] ([facility])[address]34 [place] [address] MCHC (RBC) [Mass/Vol] 31.3 g/dL Low 32.0-36.0 [facility] Comment on above: Order Comment: The p [...] Performed By: #### 5 7021-8 ####BHANU Treviño (26656)[facility] ([facility])[address] [place] [address] MCV (RBC) [Entitic vol] 79 fL Low 80-100 U [facility] Comment on above: Order Comment: The p [...] Performed By: #### 5 7021-8 ####BHANU Treviño (66236)[facility] ([facility])[address] [place] [address] Nucleated RBC/100 WBC (Bld) [Ratio] 0.0 /100 WBCs Normal 0.0-0.0 [facility] Comment on above: Order Comment: The p [...] Performed By: #### 5 7021-8 ####BHANU Treviño ([id number])[facility] ([facility])[address] [place] [address] Platelets (Bld) [#/Vol] 753 x10*3/uL High 150-450 [facility] Comment on above: Order Comment: The p [...] Performed By: #### 5 7021-8 ####BHANU Treviño ([id number])[facility] ([facility])[address] [place] [address] RBC (Bld) [#/Vol] 3.66 x10*6/uL Low 4.50-5.90 [facility] Comment on above: Order Comment: The [...] By: #### 5 7021-8 ####BHANU FLEMINGMOTZER L ([id number])[facility] ([facility])[address]042 [place] [address] WBC (Bld) [#/Vol] 10.7 x10*3/uL Normal 4.4-11.3 [facility] Comment on above: Order Comment: The [...] Performed By: #### 5 7021-8 ####BHANU Treviño ([id number])[facility] ([facility])[address] [place] [address] Comprehensive metabolic 2000 panelon 01-25-2025 Albumin BCP dye [Mass/Vol] 2.5 g/dL Low 3.4-5.0 [facility] Comment on above: Performed By: #### 2 4323-8 ####BHANU MATOSER L (25906)[facility] ([facility])[address] [place] [address] ALP [Catalytic activity/Vol] 69 U/L Normal 33-120 [facility] Comment on above: Performed By: #### 2 4323-8 ####BHANU Treviño (05226)[facility] ([facility])[address] [place] [address] ALT With P-5'-P [Catalytic activity/Vol] 34 U/L Normal 10-52 [facility] Comment on above: Result Comment: Sydni ents treated with Sulfasalazine may generate falsely decreased results for ALT. Performed By: #### 2 4323-8 ####BHANU FLEMINGMOJOSEFA L (06777)[facility] ([facility])[address]26 [place] [address] Anion gap [Moles/Vol] 14 mmol/L Normal 10-20 [facility] Comment on above: Performed By: #### 2 4323-8 ####BHANU GREGORY L ([id number])[facility] ([facility])[address] [place] [address] AST With P-5'-P [Catalytic activity/Vol] 43 U/L High 9-39 [facility] Comment on above: Performed By: #### 2 4323-8 ####BHANU Treviño (07755)[facility] ([facility])[address] [place] [address] Bilirubin [Mass/Vol] 0.4 mg/dL Normal 0.0-1.2 [facility] Comment on above: Performed By: #### 2 4323-8 ####BHANU Treviño ([id number])[facility] ([facility])[address] [place] [address] Calcium [Mass/Vol] 8.5 mg/dL Low 8.6-10.6 [facility] Comment on above: Performed By: #### 2 4323-8 ####BHANU Treviño (32883)[facility] ([facility])[address] [place] [address] Chloride [Moles/Vol] 101 mmol/L Normal 98-107 [facility] Comment on above: Performed By: #### 2 4323-8 ####BHANU GREGORY L ([id number])[facility] ([facility])[address] [place] [address] CO2 [Moles/Vol] 26 mmol/L Normal 21-32 [facility] Comment on above: Performed By: #### 2 4323-8 ####BHANU Treviño ([id number])[facility] ([facility])[address] [place] [address] Creatinine [Mass/Vol] 1.11 mg/dL Normal 0.50-1.30 [facility] Comment on above: Performed By: #### 2 4323-8 ####BHANU GREGORY L ([id number])[facility] ([facility])[address] [place] [address] Glomerular filtration rate/1.73 sq M.predicted 80 mL/min/1.73m*2 Normal >60 [facility] Comment on above: Result Comment: Calc ulations of estimated GFR are performed using the 2020 CKD-EPI Study Refit equation without the race variable for the IDMS-Traceable creatinine methods.https://jasn.asnjournals.org/content/ /ASN.6094271548 Performed By: #### 2 4323-8 ####BHANU Treviño ([id number])[facility] ([facility])[address] [place] [address] Glucose [Mass/Vol] 100 mg/dL High 74-99 [facility] Comment on above: Performed By: #### 2 4323-8 ####BHANU Treviño ([id number])[facility] ([facility])[address] [place] [address] Potassium [Moles/Vol] 3.9 mmol/L Normal 3.5-5.3 [facility] Comment on above: Performed By: #### 2 4323-8 ####BHANU Treviño ([id number])[facility] ([facility])[address] [place] [address] Protein [Mass/Vol] 6.8 g/dL Normal 6.4-8.2 [facility] Comment on above: Performed By: #### 2 4323-8 ####BHANU GREGORY L ([id number])[facility] ([facility])[address] [place] [address] Sodium [Moles/Vol] 137 mmol/L Normal 136-145 [facility] Comment on above: Performed By: #### 2 4323-8 ####BHANU GREGORY L ([id number])[facility] ([facility])[address] [place] [address] Urea nitrogen [Mass/Vol] 8 mg/dL Normal 6-23 [facility] Comment on above: Performed By: #### 2 4323-8 ####BHANU GREGORY L ([id number])[facility] ([facility])[address] [place] [address] Magnesiumon 01-25-2025 Magnesium [Mass/Vol] 2.08 mg/dL Normal 1.60-2.40 [facility] Comment on above: Performed By: #### 1 9123-9 ####BHANU Treviño ([id number])[facility] ([facility])[id number] [place] [address] Manual differential performe d Ql (Bld)on 01-25-2025 Band form neutrophils (Bld) [#/Vol] 0.28 x10*3/uL Normal 0.00-0.70 [facility] Comment on above: Performed By: #### 5 0957-0 ####BHANU Treviño ([id number])[facility] ([facility])[id number] [place] [address] Band form neutrophils/100 WBC (Bld) 2.6 % Normal 0.0-5.0 [facility] Comment on above: Performed By: #### 5 0957-0 ####BHANU Treviño ([id number])[facility] ([facility])[address] [place] [address] Basophils (Bld) [#/Vol] 0.00 x10*3/uL Normal 0.00-0.10 [facility] Comment on above: Performed By: #### 5 0957-0 ####BHANU Treviño ([id number])[facility] ([facility])[id number] [place] [address] Basophils/100 WBC (Bld) 0.0 % Normal 0.0-2.0 [facility] Comment on above: Performed By: #### 5 0957-0 ####BHANU Treviño ([id number])[facility] ([facility])[address] [place] [address] Cells Counted Total (Bld) [#] 116 Normal [facility] Comment on above: Performed By: #### 5 0957-0 ####BHANU Treviño ([id number])[facility] ([facility])[address] [place] [address] Eosinophils (Bld) [#/Vol] 0.09 x10*3/uL Normal 0.00-0.70 [facility] Comment on above: Performed By: #### 5 0957-0 ####BHANU Treviño ([id number])[facility] ([facility])[address] [place] [address] Eosinophils/100 WBC (Bld) 0.8 % Normal 0.0-6.0 [facility] Comment on above: Performed By: #### 5 57-0 ####BHANU Treviño ([id number])[facility] ([facility])[address] [place] [address] Hypochromia Ql (Bld) Mild Normal [facility] Comment on above: Performed By: #### 5 0957-0 ####BHANU Treviño ([id number])[facility] ([facility])[address] [place] [address] Lymphocytes (Bld) [#/Vol] 0.46 x10*3/uL Low 1.20-4.80 [facility] Comment on above: Performed By: #### 5 57-0 ####BHANU Treviño ([id number])[facility] ([facility])[address] [place] [address] Lymphocytes/100 WBC (Bld) 4.3 % Normal 13.0-44.0 [facility] Comment on above: Performed By: #### 5 0957-0 ####BHANU Treviño (63599)[facility] ([facility])[address] [place] [address] Monocytes (Bld) [#/Vol] 0.46 x10*3/uL Normal 0.10-1.00 [facility] Comment on above: Performed By: #### 5 0957-0 ####BHANU Treviño ([id number])[facility] ([facility])[address]257 [place] [address] Monocytes/100 WBC (Bld) 4.3 % Normal 2.0-10.0 [facility] Comment on above: Performed By: #### 5 0957-0 ####BHANU Treviño ([id number])[facility] ([facility])[address] [place] [address] Neutrophils (Bld) [#/Vol] 9.60 x10*3/uL High 1.20-7.70 [facility] Comment on above: Performed By: #### 5 0957-0 ####BHANU Treviño ([id number])[facility] ([facility])[address] [place] [address] RBC morphology finding Nom (Bld) See Below Normal [facility] Comment on above: Performed By: #### 5 0957-0 ####BHANU Treviño ([id number])[facility] ([facility])[address] [place] [address] Segmented neutrophils (Bld) [#/Vol] 9.32 x10*3/uL High 1.20-7.00 [facility] Comment on above: Performed By: #### 5 57-0 ####BHANU Treviño ([id number])[facility] ([facility])[address] [place] [address] 18066 Segmented neutrophils/100 WBC (Bld) 87.1 % Normal 40.0-80.0 [facility] Comment on above: Result Comment: Perc ent differential counts (%) should be interpreted in the context of the absolute cell counts (cells/uL). Performed By: #### 5 0957-0 ####BHANU Treviño ([id number])[facility] ([facility])[address] [place] [address] Target cells LM Ql (Bld) Few Normal [facility] Comment on above: Performed By: #### 5 0957-0 ####BHANU Treviño ([id number])[facility] ([facility])[address] [place] [address] Variant lymphocytes (Bld) [#/Vol] 0.10 x10*3/uL Normal 0.00-0.50 [facility] Comment on above: Performed By: #### 5 0957-0 ####BHANU Treviño ([id number])[facility] ([facility])[address] [facility] [place] [address] Variant lymphocytes/100 WBC (Bld) 0.9 % Normal 0.0-2.0 [facility] Comment on above: Performed By: #### 5 0957-0 ####BHANU Treviño ([id number])[facility] ([facility])[address] [place] [address] Bacteria identifiedon 2024 Bacteria identified Cx Nom (Unsp spec) Abnormal [facility] Comment on above: Performed By: #### 6 463-4 ####BHANU Treviño ([id number])[facility] ([facility])[address] [place] [address] Blood type and Indirect anti body screen panel (Bld)on 01-24-2025 ABO group Nom (Bld) A Normal [facility] Comment on above: Performed By: #### 3 4532-2 ####BHANU Treviño ([id number])[facility] ([facility])[address] [place] [address] Blood group antibody screen Ql Negative Normal [facility] Comment on above: Performed By: #### 3 4532-2 ####BHANU Treviño ([id number])[facility] ([facility])[address] [place] [address] D Ag Ql (Bld) Positive Normal [facility] Comment on above: Performed By: #### 3 4532-2 ####BHANU Treviño ([id number])[facility] ([facility])[address] [place] [address] CBC W Auto Differential pane l (Bld)on 01-24-2025 Basophils (Bld) [#/Vol] 0.07 x10*3/uL Normal 0.00-0.10 [facility] Comment on above: Performed By: #### 5 7021-8 ####BHANU Treviño ([id number])[facility] ([facility])[address] [place] [address] Basophils/100 WBC (Bld) 0.7 % Normal 0.0-2.0 [facility] Comment on above: Performed By: #### 5 7021-8 ####BHANU Treviño (51090)[facility] ([facility])[address]86 [place] [address] Eosinophils (Bld) [#/Vol] 0.31 x10*3/uL Normal 0.00-0.70 [facility] Comment on above: Performed By: #### 5 7021-8 ####BHANU Treviño (42711)[facility] ([facility])[address] [place] [address] Eosinophils/100 WBC (Bld) 3.3 % Normal 0.0-6.0 [facility] Comment on above: Performed By: #### 5 7021-8 ####BHANU Treviño ([id number])[facility] ([facility])[address] [place] [address]75 Erythrocyte distribution width (RBC) [Ratio] 19.7 % High 11.5-14.5 [facility] Comment on above: Performed By: #### 5 7021-8 ####BHANU Treviño ([id number])[facility] ([facility])[address] [place] [address] Hematocrit (Bld) [Volume fraction] 27.2 % Low 41.0-52.0 [facility] Comment on above: Performed By: #### 5 7021-8 ####BHANU Treviño ([id number])[facility] ([facility])[address] [place] [address] 37531 Hemoglobin (Bld) [Mass/Vol] 8.6 g/dL Low 13.5-17.5 [facility] Comment on above: Performed By: #### 5 7021-8 ####BHANU GREGORY L (25897)[facility] ([facility])[address] [place] [address] 71047 Immature granulocytes (Bld) [#/Vol] 0.06 x10*3/uL Normal 0.00-0.70 [facility] Comment on above: Performed By: #### 5 7021-8 ####BHANU Treviño ([id number])[facility] ([facility])[address] [place] [address] Immature granulocytes/100 WBC (Bld) 0.6 % Normal 0.0-0.9 [facility] Comment on above: Result Comment: Christine ture Granulocyte Count (IG) includes promyelocytes, myelocytes and metamyelocytes but does not include bands. Percent differential counts (%) should be interpreted in the context of the absolute cell counts (cells/UL). Performed By: #### 5 7021-8 ####BHANU Treviño ([id number])[facility] ([facility])[address] [place] [address] 11413 Lymphocytes (Bld) [#/Vol] 1.12 x10*3/uL Low 1.20-4.80 [facility] Comment on above: Performed By: #### 5 7021-8 ####BHANU Treviño ([id number])[facility] ([facility])[address]84 [place] [address] Lymphocytes/100 WBC (Bld) 11.8 % Normal 13.0-44.0 [facility] Comment on above: Performed By: #### 5 7021-8 ####BHANU Treviño (04740)[facility] ([facility])[address]23 [place] [address] MCH (RBC) [Entitic mass] 24.5 pg Low 26.0-34.0 [facility] Comment on above: Performed By: #### 5 7021-8 ####BHANU Treviño (28766)[facility] ([facility])[address]165 [place] [address] MCHC (RBC) [Mass/Vol] 31.6 g/dL Low 32.0-36.0 [facility] Comment on above: Performed By: #### 5 7021-8 ####BHANU Treviño ([id number])[facility] ([facility])[address]759 [place] [address] MCV (RBC) [Entitic vol] 78 fL Low 80-100 [facility] Comment on above: Performed By: #### 5 7021-8 ####BHANU Treviño ([id number])[facility] ([facility])[address]344 [place] [address] Monocytes (Bld) [#/Vol] 1.07 x10*3/uL High 0.10-1.00 [facility] Comment on above: Performed By: #### 5 7021-8 ####BHANU Treviño (26861)[facility] ([facility])[address]29 [place] [address] Monocytes/100 WBC (Bld) 11.3 % Normal 2.0-10.0 [facility] Comment on above: Performed By: #### 5 7021-8 ####BHANU Treviño (68932)[facility] ([facility])[address]33 [place] [address] Neutrophils (Bld) [#/Vol] 6.87 x10*3/uL Normal 1.20-7.70 [facility] Comment on above: Result Comment: Perc ent differential counts (%) should be interpreted in the context of the absolute cell counts (cells/uL). Performed By: #### 5 7021-8 ####BHANU Treviño ([id number])[facility] ([facility])[address]80 [place] [address] Neutrophils/100 WBC (Bld) 72.3 % Normal 40.0-80.0 [facility] Comment on above: Performed By: #### 5 7021-8 ####BHANU Treviño (07920)[facility] ([facility])[address]017 [place] [address] Nucleated RBC/100 WBC (Bld) [Ratio] 0.0 /100 WBCs Normal 0.0-0.0 [facility] Comment on above: Performed By: #### 5 7021-8 ####BHANU Treviño ([id number])[facility] ([facility])[address]29 [place] [address] Platelets (Bld) [#/Vol] 722 x10*3/uL High 150-450 [facility] Comment on above: Performed By: #### 5 7021-8 ####BHANU Treviño ([id number])[facility] ([facility])[address]230 [place] [address] RBC (Bld) [#/Vol] 3.51 x10*6/uL Low 4.50-5.90 [facility] Comment on above: Performed By: #### 5 7021-8 ####BHANU Treviño (51796)[facility] ([facility])[address]709 [place] [address] WBC (Bld) [#/Vol] 9.5 x10*3/uL Normal 4.4-11.3 [facility] Comment on above: Performed By: #### 5 7021-8 ####BHANU Treviño ([id number])[facility] ([facility])[address]23 [place] [address] Basophils (Bld) [#/Vol] 0.07 x10*3/uL Normal 0.00-0.10 [facility] Comment on above: Performed By: #### 5 7021-8 ####BHANU Treviño ([id number])[facility] ([facility])[address]14 [place] [address] Basophils/100 WBC (Bld) 0.8 % Normal 0.0-2.0 [facility] Comment on above: Performed By: #### 5 7021-8 ####BHANU GREGORY L (91589)[facility] ([facility])[address]01 [place] [address] Eosinophils (Bld) [#/Vol] 0.09 x10*3/uL Normal 0.00-0.70 [facility] Comment on above: Performed By: #### 5 7021-8 ####BHANU Treviño (94125)[facility] ([facility])[address] [place] [address]40 Eosinophils/100 WBC (Bld) 1.1 % Normal 0.0-6.0 [facility] Comment on above: Performed By: #### 5 7021-8 ####BHANU Treviño ([id number])[facility] ([facility])[address] [place] [address] Erythrocyte distribution width (RBC) [Ratio] 19.7 % High 11.5-14.5 [facility] Comment on above: Performed By: #### 5 7021-8 ####BHANU Treviño (92249)[facility] ([facility])[address] [place] [address] 12083 Hematocrit (Bld) [Volume fraction] 27.4 % Low 41.0-52.0 [facility] Comment on above: Performed By: #### 5 7021-8 ####BHANU Treviño ([id number])[facility] ([facility])[address] [place] [address]21 Hemoglobin (Bld) [Mass/Vol] 8.6 g/dL Low 13.5-17.5 [facility] Comment on above: Performed By: #### 5 7021-8 ####BHANU Treviño ([id number])[facility] ([facility])[address] [place] [address] Immature granulocytes (Bld) [#/Vol] 0.04 x10*3/uL Normal 0.00-0.70 [facility] Comment on above: Performed By: #### 5 7021-8 ####BHANU Treviño ([id number])[facility] ([facility])[address] [place] [address]352 Immature granulocytes/100 WBC (Bld) 0.5 % Normal 0.0-0.9 [facility] Comment on above: Result Comment: Christine ture Granulocyte Count (IG) includes promyelocytes, myelocytes and metamyelocytes but does not include bands. Percent differential counts (%) should be interpreted in the context of the absolute cell counts (cells/UL). Performed By: #### 5 7021-8 ####BHANU Treviño ([id number])[facility] ([facility])[address]44 [place] [address] Lymphocytes (Bld) [#/Vol] 1.33 x10*3/uL Normal 1.20-4.80 [facility] Comment on above: Performed By: #### 5 7021-8 ####BHANU Treviño ([id number])[facility] ([facility])[address]396 [place] [address] Lymphocytes/100 WBC (Bld) 15.8 % Normal 13.0-44.0 [facility] Comment on above: Performed By: #### 5 7021-8 ####BHANU Treviño (69045)[facility] ([facility])[address]207 [place] [address] MCH (RBC) [Entitic mass] 24.1 pg Low 26.0-34.0 [facility] Comment on above: Performed By: #### 5 7021-8 ####BHANU Treviño (35730)[facility] ([facility])[address]42 [place] [address] MCHC (RBC) [Mass/Vol] 31.4 g/dL Low 32.0-36.0 [facility] Comment on above: Performed By: #### 5 7021-8 ####BHANU Treviño (26582)[facility] ([facility])[address] [place] [address] MCV (RBC) [Entitic vol] 77 fL Low 80-100 U [facility] Comment on above: Performed By: #### 5 7021-8 ####BHANU Treviño (37291)[facility] ([facility])[address]55 [place] [address] Monocytes (Bld) [#/Vol] 1.12 x10*3/uL High 0.10-1.00 [facility] Comment on above: Performed By: #### 5 7021-8 ####BHANU Treviño (70394)[facility] ([facility])[address]183 [place] [address] Monocytes/100 WBC (Bld) 13.3 % Normal 2.0-10.0 [facility] Comment on above: Performed By: #### 5 7021-8 ####BHANU Treviño (92644)[facility] ([facility])[address]606 [place] [address] Neutrophils (Bld) [#/Vol] 5.79 x10*3/uL Normal 1.20-7.70 [facility] Comment on above: Result Comment: Perc ent differential counts (%) should be interpreted in the context of the absolute cell counts (cells/uL). Performed By: #### 5 7021-8 ####BHANU Treviño ([id number])[facility] ([facility])[address]379 [place] [address] Neutrophils/100 WBC (Bld) 68.5 % Normal 40.0-80.0 [facility] Comment on above: Performed By: #### 5 7021-8 ####BHANU Treviño (07342)[facility] ([facility])[address]13 [place] [address] Nucleated RBC/100 WBC (Bld) [Ratio] 0.0 /100 WBCs Normal 0.0-0.0 [facility] Comment on above: Performed By: #### 5 7021-8 ####BHANU Treviño ([id number])[facility] ([facility])[address]707 [place] [address] Platelets (Bld) [#/Vol] 737 x10*3/uL High 150-450 [facility] Comment on above: Performed By: #### 5 7021-8 ####BHANU Treviño ([id number])[facility] ([facility])[address] [place] [address] RBC (Bld) [#/Vol] 3.57 x10*6/uL Low 4.50-5.90 [facility] Comment on above: Performed By: #### 5 7021-8 ####BHANU Treviño (81164)[facility] ([facility])[address]155 [place] [address] WBC (Bld) [#/Vol] 8.4 x10*3/uL Normal 4.4-11.3 [facility] Comment on above: Performed By: #### 5 7021-8 ####BHANU Treviño ([id number])[facility] ([facility])[address] [place] [address] Comprehensive metabolic 2000 panelon 01-24-2025 Albumin BCP dye [Mass/Vol] 2.4 g/dL Low 3.4-5.0 [facility] Comment on above: Performed By: #### 2 4323-8 ####BHANU Treviño (11057)[facility] ([facility])[address] [place] [address] ALP [Catalytic activity/Vol] 70 U/L Normal 33-120 [facility] Comment on above: Performed By: #### 2 4323-8 ####BHANU Treviño ([id number])[facility] ([facility])[address] [place] [address] ALT With P-5'-P [Catalytic activity/Vol] 38 U/L Normal 10-52 [facility] Comment on above: Result Comment: Sydni ents treated with Sulfasalazine may generate falsely decreased results for ALT. Performed By: #### 2 4323-8 ####BHANU Treviño (48287)[facility] ([facility])[address] [place] [address] Anion gap [Moles/Vol] 13 mmol/L Normal 10-20 [facility] Comment on above: Performed By: #### 2 4323-8 ####BHANU Treviño (11292)[facility] ([facility])[address] [place] [address] AST With P-5'-P [Catalytic activity/Vol] 46 U/L High 9-39 [facility] Comment on above: Performed By: #### 2 4323-8 ####BHANU Treviño (21689)[facility] ([facility])[address] [place] [address] Bilirubin [Mass/Vol] 0.3 mg/dL Normal 0.0-1.2 [facility] Comment on above: Performed By: #### 2 4323-8 ####BHANU Trevioñ (06610)[facility] ([facility])[address] [place] [address] Calcium [Mass/Vol] 8.5 mg/dL Low 8.6-10.6 [facility] Comment on above: Performed By: #### 2 4323-8 ####BHANU Treviño (21529)[facility] ([facility])[address] [place] [address] Chloride [Moles/Vol] 101 mmol/L Normal 98-107 [facility] Comment on above: Performed By: #### 2 4323-8 ####BHANU Treviño ([id number])[facility] ([facility])[address] [place] [address] CO2 [Moles/Vol] 27 mmol/L Normal 21-32 [facility] Comment on above: Performed By: #### 2 4323-8 ####BHANU Treviño (25393)[facility] ([facility])[address] [place] [address] Creatinine [Mass/Vol] 1.20 mg/dL Normal 0.50-1.30 [facility] Comment on above: Performed By: #### 2 4323-8 ####BHANU Treviño (88146)[facility] ([facility])[address] [place] [address] Glomerular filtration rate/1.73 sq M.predicted 73 mL/min/1.73m*2 Normal >60 [facility] Comment on above: Result Comment: Calc ulations of estimated GFR are performed using the 2020 CKD-EPI Study Refit equation without the race variable for the IDMS-Traceable creatinine methods.https://jasn.asnjournals.org/content/early /ASN.5338864162 Performed By: #### 2 4323-8 ####BHANU Treviño ([id number])[facility] ([facility])[address] [place] [address] Glucose [Mass/Vol] 103 mg/dL High 74-99 [facility] Comment on above: Performed By: #### 2 4323-8 ####BHANU Treviño ([id number])[facility] ([facility])[address] [place] [address] Potassium [Moles/Vol] 4.1 mmol/L Normal 3.5-5.3 [facility] Comment on above: Performed By: #### 2 4323-8 ####BHANU GREGORY L ([id number])[facility] ([facility])[address] [place] [address] Protein [Mass/Vol] 6.5 g/dL Normal 6.4-8.2 [facility] Comment on above: Performed By: #### 2 4323-8 ####BHANU GREGORY L ([id number])[facility] ([facility])[address] [place] [address] Sodium [Moles/Vol] 137 mmol/L Normal 136-145 [facility] Comment on above: Performed By: #### 2 4323-8 ####BHANU RGEGORY L ([id number])[facility] ([facility])[address] [place] [address] Urea nitrogen [Mass/Vol] 10 mg/dL Normal 6-23 [facility] Comment on above: Performed By: #### 2 4323-8 ####BHANU GREGORY L ([id number])[facility] ([facility])[address] [place] [address] Magnesiumon 01-24-2025 Magnesium [Mass/Vol] 1.89 mg/dL Normal 1.60-2.40 [facility] Comment on above: Performed By: #### 1 9123-9 ####BHANU Treviño ([id number])[facility] ([facility])[address] [place] [address] RBC shape Nom (Bld)on 2024 Hypochromia Ql (Bld) Mild Normal [facility] Comment on above: Performed By: #### 1 8225-3 ####BHANU Treviño ([id number])[facility] ([facility])[address] [place] [address] RBC morphology finding Nom (Bld) See [facility] Comment on above: Performed By: #### 1 8225-3 ####BHANU Treviño ([id number])[facility] ([facility])[id number] [place] [address] Stomatocytes LM Ql (Bld) Few Normal [facility] Comment on above: Performed By: #### 1 8225-3 ####BHANU Treviño ([id number])[facility] ([facility])[id number] [place] [address] CBC W Auto Differential pane l (Bld)on 01-23-2025 Basophils (Bld) [#/Vol] 0.08 x10*3/uL Normal 0.00-0.10 [facility] Comment on above: Performed By: #### 5 7021-8 ####BHANU GREGORY L ([id number])[facility] ([facility])[address] [place] [address] Basophils/100 WBC (Bld) 0.9 % Normal 0.0-2.0 [facility] Comment on above: Performed By: #### 5 7021-8 ####BHANU GREGORY L ([id number])[facility] ([facility])[address] [place] [address] Eosinophils (Bld) [#/Vol] 0.57 x10*3/uL Normal 0.00-0.70 [facility] Comment on above: Performed By: #### 5 7021-8 ####BHANU Treviño ([id number])[facility] ([facility])[address] [place] [address] 98400 Eosinophils/100 WBC (Bld) 6.5 % Normal 0.0-6.0 [facility] Comment on above: Performed By: #### 5 7021-8 ####BHANU Treviño ([id number])[facility] ([facility])[address] [place] [address] 45271 Erythrocyte distribution width (RBC) [Ratio] 19.8 % High 11.5-14.5 [facility] Comment on above: Performed By: #### 5 7021-8 ####BHANU Treviño ([id number])[facility] ([facility])[address] [place] [address] 90096 Hematocrit (Bld) [Volume fraction] 26.8 % Low 41.0-52.0 [facility] Comment on above: Performed By: #### 5 7021-8 ####BHANU Treviño ([id number])[facility] ([facility])[address] [place] [address] 29726 Hemoglobin (Bld) [Mass/Vol] 8.5 g/dL Low 13.5-17.5 [facility] Comment on above: Performed By: #### 5 7021-8 ####BHANU Treviño ([id number])[facility] ([facility])[address] [place] [address] 57045 Immature granulocytes (Bld) [#/Vol] 0.05 x10*3/uL Normal 0.00-0.70 [facility] Comment on above: Performed By: #### 5 7021-8 ####BHANU Treviño ([id number])[facility] ([facility])[id number] [place] [address] 98601 Immature granulocytes/100 WBC (Bld) 0.6 % Normal 0.0-0.9 [facility] Comment on above: Result Comment: Christine ture Granulocyte Count (IG) includes promyelocytes, myelocytes and metamyelocytes but does not include bands. Percent differential counts (%) should be interpreted in the context of the absolute cell counts (cells/UL). Performed By: #### 5 7021-8 ####BHANU Treviño ([id number])[facility] ([facility])[address] [place] [address] Lymphocytes (Bld) [#/Vol] 1.22 x10*3/uL Normal 1.20-4.80 [facility] Comment on above: Performed By: #### 5 7021-8 ####BHANU Treviño ([id number])[facility] ([facility])[address] [place] [address] Lymphocytes/100 WBC (Bld) 14.0 % Normal 13.0-44.0 [facility] Comment on above: Performed By: #### 5 7021-8 ####BHANU Treviño ([id number])[facility] ([facility])[address] [place] [address] MCH (RBC) [Entitic mass] 24.6 pg Low 26.0-34.0 [facility] Comment on above: Performed By: #### 5 7021-8 ####BHANU Treviño ([id number])[facility] ([facility])[address] [place] [address] MCHC (RBC) [Mass/Vol] 31.7 g/dL Low 32.0-36.0 [facility] Comment on above: Performed By: #### 5 7021-8 ####BHANU Treviño ([id number])[facility] ([facility])[address] [place] [address] MCV (RBC) [Entitic vol] 78 fL Low 80-100 [facility] Comment on above: Performed By: #### 5 7021-8 ####BHANU Treviño ([id number])[facility] ([facility])[address] [place] [address] Monocytes (Bld) [#/Vol] 0.90 x10*3/uL Normal 0.10-1.00 [facility] Comment on above: Performed By: #### 5 7021-8 ####BHANU Treviño ([id number])[facility] ([facility])[address] [place] [address] Monocytes/100 WBC (Bld) 10.3 % Normal 2.0-10.0 [facility] Comment on above: Performed By: #### 5 7021-8 ####BHANU GREGORY L ([id number])[facility] ([facility])[address] [place] [address] Neutrophils (Bld) [#/Vol] 5.91 x10*3/uL Normal 1.20-7.70 [facility] Comment on above: Result Comment: Perc ent differential counts (%) should be interpreted in the context of the absolute cell counts (cells/uL). Performed By: #### 5 7021-8 ####BHANU Treviño ([id number])[facility] ([facility])[address] [place] [address] Neutrophils/100 WBC (Bld) 67.7 % Normal 40.0-80.0 [facility] Comment on above: Performed By: #### 5 7021-8 ####BHANU Treviño ([id number])[facility] ([facility])[address] [place] [address] Nucleated RBC/100 WBC (Bld) [Ratio] 0.0 /100 WBCs Normal 0.0-0.0 [facility] Comment on above: Performed By: #### 5 7021-8 ####BHANU FLEMINGMOTZER L ([id number])[facility] ([facility])[address] [place] [address] Platelets (Bld) [#/Vol] 760 x10*3/uL High 150-450 [facility] Comment on above: Performed By: #### 5 7021-8 ####BHANU GREGORY L ([id number])[facility] ([facility])[address] [place] [address] RBC (Bld) [#/Vol] 3.46 x10*6/uL Low 4.50-5.90 [facility] Comment on above: Performed By: #### 5 7021-8 ####BHANU GREGORY L ([id number])[facility] ([facility])[address] [place] [address] WBC (Bld) [#/Vol] 8.7 x10*3/uL Normal 4.4-11.3 [facility] Comment on above: Performed By: #### 5 7021-8 ####BHANU GREGORY L ([id number])[facility] ([facility])[address] [place] [address] Basophils (Bld) [#/Vol] 0.07 x10*3/uL Normal 0.00-0.10 [facility] Comment on above: Performed By: #### 5 7021-8 ####BHANU GREGORY L ([id number])[facility] ([facility])[address] [place] [address] Basophils/100 WBC (Bld) 0.8 % Normal 0.0-2.0 [facility] Comment on above: Performed By: #### 5 7021-8 ####BHANU FLEMINGMOJOSEFA L ([id number])[facility] ([facility])[address] [place] [address] Eosinophils (Bld) [#/Vol] 0.36 x10*3/uL Normal 0.00-0.70 [facility] Comment on above: Performed By: #### 5 7021-8 ####BHANU FLEMINGMOTZER L ([id number])[facility] ([facility])[address] [place] [address] Eosinophils/100 WBC (Bld) 4.2 % Normal 0.0-6.0 [facility] Comment on above: Performed By: #### 5 7021-8 ####BHANU FLEMINGMOJOSEFA L ([id number])[facility] ([facility])[address] [place] [address] Erythrocyte distribution width (RBC) [Ratio] 19.9 % High 11.5-14.5 [facility] Comment on above: Performed By: #### 5 7021-8 ####BHANU Treviño ([id number])[facility] ([facility])[address] [place] [address] Hematocrit (Bld) [Volume fraction] 28.0 % Low 41.0-52.0 [facility] Comment on above: Performed By: #### 5 7021-8 ####BHANU Treviño ([id number])[facility] ([facility])[address] [place] [address] Hemoglobin (Bld) [Mass/Vol] 8.7 g/dL Low 13.5-17.5 [facility] Comment on above: Performed By: #### 5 7021-8 ####BHANU Treviño ([id number])[facility] ([facility])[address] [place] [address] 56658 Immature granulocytes (Bld) [#/Vol] 0.05 x10*3/uL Normal 0.00-0.70 [facility] Comment on above: Performed By: #### 5 7021-8 ####BHANU Treviño ([id number])[facility] ([facility])[address] [place] [address] Immature granulocytes/100 WBC (Bld) 0.6 % Normal 0.0-0.9 [facility] Comment on above: Result Comment: Christine ture Granulocyte Count (IG) includes promyelocytes, myelocytes and metamyelocytes but does not include bands. Percent differential counts (%) should be interpreted in the context of the absolute cell counts (cells/UL). Performed By: #### 5 7021-8 ####BHANU Treviño ([id number])[facility] ([facility])[address] [place] [address] Lymphocytes (Bld) [#/Vol] 0.89 x10*3/uL Low 1.20-4.80 [facility] Comment on above: Performed By: #### 5 7021-8 ####BHANU Treviño ([id number])[facility] ([facility])[address] [place] [address] Lymphocytes/100 WBC (Bld) 10.5 % Normal 13.0-44.0 [facility] Comment on above: Performed By: #### 5 7021-8 ####BHANU Treviño ([id number])[facility] ([facility])[address] [place] [address] 33904 MCH (RBC) [Entitic mass] 24.4 pg Low 26.0-34.0 [facility] Comment on above: Performed By: #### 5 7021-8 ####BAHNU Treviño ([id number])[facility] ([facility])[address] [place] [address] 21507 MCHC (RBC) [Mass/Vol] 31.1 g/dL Low 32.0-36.0 [facility] Comment on above: Performed By: #### 5 7021-8 ####BHANU Treviño ([id number])[facility] ([facility])[address] [place] [address]177 MCV (RBC) [Entitic vol] 78 fL Low 80-100 [facility] Comment on above: Performed By: #### 5 7021-8 ####BHANU Treviño ([id number])[facility] ([facility])[address] [place] [address] 47363 Monocytes (Bld) [#/Vol] 0.89 x10*3/uL Normal 0.10-1.00 [facility] Comment on above: Performed By: #### 5 7021-8 ####BHANU Treviño ([id number])[facility] ([facility])[address] [place] [address] 22226 Monocytes/100 WBC (Bld) 10.5 % Normal 2.0-10.0 [facility] Comment on above: Performed By: #### 5 7021-8 ####BHANU Treviño ([id number])[facility] ([facility])[address] [place] [address] Neutrophils (Bld) [#/Vol] 6.23 x10*3/uL Normal 1.20-7.70 [facility] Comment on above: Result Comment: Perc ent differential counts (%) should be interpreted in the context of the absolute cell counts (cells/uL). Performed By: #### 5 7021-8 ####BHANU Treviño ([id number])[facility] ([facility])[address] [place] [address] Neutrophils/100 WBC (Bld) 73.4 % Normal 40.0-80.0 [facility] Comment on above: Performed By: #### 5 7021-8 ####BHANU Treviño ([id number])[facility] ([facility])[address] [place] [address] Nucleated RBC/100 WBC (Bld) [Ratio] 0.0 /100 WBCs Normal 0.0-0.0 [facility] Comment on above: Performed By: #### 5 7021-8 ####BHANU Treviño ([id number])[facility] ([facility])[address] [place] [address] Platelets (Bld) [#/Vol] 749 x10*3/uL High 150-450 [facility] Comment on above: Performed By: #### 5 7021-8 ####BHANU Treviño ([id number])[facility] ([facility])[address] [place] [address] RBC (Bld) [#/Vol] 3.57 x10*6/uL Low 4.50-5.90 [facility] Comment on above: Performed By: #### 5 7021-8 ####BHANU GREGORY L ([id number])[facility] ([facility])[address] [place] [address] WBC (Bld) [#/Vol] 8.5 x10*3/uL Normal 4.4-11.3 [facility] Comment on above: Performed By: #### 5 7021-8 ####BHANU Treviño ([id number])[facility] ([facility])[address] [place] [address] Comprehensive metabolic 2000 panelon 01-23-2025 Albumin BCP dye [Mass/Vol] 2.3 g/dL Low 3.4-5.0 [facility] Comment on above: Performed By: #### 2 4323-8 ####BHANU Treviño ([id number])[facility] ([facility])[address] [place] [address] ALP [Catalytic activity/Vol] 72 U/L Normal 33-120 [facility] Comment on above: Performed By: #### 2 4323-8 ####BHNAU Treviño ([id number])[facility] ([facility])[address] [place] [address] ALT With P-5'-P [Catalytic activity/Vol] 38 U/L Normal 10-52 [facility] Comment on above: Result Comment: Sydni ents treated with Sulfasalazine may generate falsely decreased results for ALT. Performed By: #### 2 4323-8 ####BHANU Treviño ([id number])[facility] ([facility])[address] [place] [address] Anion gap [Moles/Vol] 14 mmol/L Normal 10-20 [facility] Comment on above: Performed By: #### 2 4323-8 ####BHANU Treviño ([id number])[facility] ([facility])[address] [place] [address] AST With P-5'-P [Catalytic activity/Vol] 56 U/L High 9-39 [facility] Comment on above: Performed By: #### 2 4323-8 ####BHANU Treviño ([id number])[facility] ([facility])[address] [place] [address] Bilirubin [Mass/Vol] 0.4 mg/dL Normal 0.0-1.2 [facility] Comment on above: Performed By: #### 2 4323-8 ####BHANU MATOSER L ([id number])[facility] ([facility])[address] [place] [address] Calcium [Mass/Vol] 8.0 mg/dL Low 8.6-10.6 [facility] Comment on above: Performed By: #### 2 4323-8 ####BHANU LAUREANOTZER L ([id number])[facility] ([facility])[address] [place] [address] Chloride [Moles/Vol] 102 mmol/L Normal 98-107 [facility] Comment on above: Performed By: #### 2 4323-8 ####BHANU LAUREANOTZER L ([id number])[facility] ([facility])[address] [place] [address] CO2 [Moles/Vol] 27 mmol/L Normal 21-32 [facility] Comment on above: Performed By: #### 2 4323-8 ####BHANU GREGORY L ([id number])[facility] ([facility])[address] [place] [address] Creatinine [Mass/Vol] 1.23 mg/dL Normal 0.50-1.30 [facility] Comment on above: Performed By: #### 2 4323-8 ####BHANU LAUREANOTZER L ([id number])[facility] ([facility])[address] [place] [address] Glomerular filtration rate/1.73 sq M.predicted 71 mL/min/1.73m*2 Normal >60 [facility] Comment on above: Result Comment: Calc ulations of estimated GFR are performed using the 2020 CKD-EPI Study Refit equation without the race variable for the IDMS-Traceable creatinine methods.https://jasn.asnjournals.org/content/ /ASN.3908284783 Performed By: #### 2 4323-8 ####BHANU FLEMINGMOTZER L ([id number])[facility] ([facility])[address] [place] [address] Glucose [Mass/Vol] 87 mg/dL Normal 74-99 [facility] Comment on above: Performed By: #### 2 4323-8 ####BHANU Treviño (07285)[facility] ([facility])[address] [place] [address] Potassium [Moles/Vol] 4.7 mmol/L Normal 3.5-5.3 [facility] Comment on above: Performed By: #### 2 4323-8 ####BHANU Treviño ([id number])[facility] ([facility])[address] [place] [address] Protein [Mass/Vol] 5.8 g/dL Low 6.4-8.2 [facility] Comment on above: Performed By: #### 2 4323-8 ####BHANU Treviño ([id number])[facility] ([facility])[address] [place] [address]277 Sodium [Moles/Vol] 138 mmol/L Normal 136-145 [facility] Comment on above: Performed By: #### 2 4323-8 ####BHANU Treviño ([id number])[facility] ([facility])[address] [place] [address]7045 Urea nitrogen [Mass/Vol] 8 mg/dL Normal 6-23 [facility] Comment on above: Performed By: #### 2 4323-8 ####BHANU Treviño ([id number])[facility] ([facility])[address] [place] [address] 23450 Magnesiumon 01-23-2025 Magnesium [Mass/Vol] 1.98 mg/dL Normal 1.60-2.40 [facility] Comment on above: Performed By: #### 1 9123-9 ####BHANU Treviño ([id number])[facility] ([facility])[address] [place] [address] CBC W Auto Differential pane l (Bld)on 01-22-2025 Basophils (Bld) [#/Vol] 0.07 x10*3/uL Normal 0.00-0.10 [facility] Comment on above: Performed By: #### 5 7021-8 ####BHANU Treviño ([id number])[facility] ([facility])[address] [place] [address] Basophils/100 WBC (Bld) 0.8 % Normal 0.0-2.0 [facility] Comment on above: Performed By: #### 5 7021-8 ####BHANU Treviño ([id number])[facility] ([facility])[id number] [place] [address] 27865 Eosinophils (Bld) [#/Vol] 0.11 x10*3/uL Normal 0.00-0.70 [facility] Comment on above: Performed By: #### 5 7021-8 ####BHANU Treviño ([id number])[facility] ([facility])[address] [place] [address]1907 Eosinophils/100 WBC (Bld) 1.2 % Normal 0.0-6.0 [facility] Comment on above: Performed By: #### 5 7021-8 ####BHANU Treviño ([id number])[facility] ([facility])[address] [place] [address]65[address] Erythrocyte distribution width (RBC) [Ratio] 19.7 % High 11.5-14.5 [facility] Comment on above: Performed By: #### 5 7021-8 ####BHANU Treviño ([id number])[facility] ([facility])[address] [place] [address] Hematocrit (Bld) [Volume fraction] 27.5 % Low 41.0-52.0 [facility] Comment on above: Performed By: #### 5 7021-8 ####BHANU Treviño ([id number])[facility] ([facility])[address] [place] [address] 06920 Hemoglobin (Bld) [Mass/Vol] 8.5 g/dL Low 13.5-17.5 [facility] Comment on above: Performed By: #### 5 7021-8 ####BHANU MATOSER L ([id number])[facility] ([facility])[address] [place] [address] Immature granulocytes (Bld) [#/Vol] 0.03 x10*3/uL Normal 0.00-0.70 [facility] Comment on above: Performed By: #### 5 7021-8 ####BHANU FLEMINGMOTZER L ([id number])[facility] ([facility])[address] [place] [address] Immature granulocytes/100 WBC (Bld) 0.3 % Normal 0.0-0.9 [facility] Comment on above: Result Comment: Christine ture Granulocyte Count (IG) includes promyelocytes, myelocytes and metamyelocytes but does not include bands. Percent differential counts (%) should be interpreted in the context of the absolute cell counts (cells/UL). Performed By: #### 5 7021-8 ####BHANU GREGORY L ([id number])[facility] ([facility])[id number] [place] [address] 974[address] Lymphocytes (Bld) [#/Vol] 1.05 x10*3/uL Low 1.20-4.80 [facility] Comment on above: Performed By: #### 5 7021-8 ####BHANU GREGORY L ([id number])[facility] ([facility])[address] [place] [address] Lymphocytes/100 WBC (Bld) 11.7 % Normal 13.0-44.0 [facility] Comment on above: Performed By: #### 5 7021-8 ####BHANU GREGORY L ([id number])[facility] ([facility])[address] [place] [address] MCH (RBC) [Entitic mass] 23.8 pg Low 26.0-34.0 [facility] Comment on above: Performed By: #### 5 7021-8 ####BHANU GREGORY L ([id number])[facility] ([facility])[address] [place] [address] MCHC (RBC) [Mass/Vol] 30.9 g/dL Low 32.0-36.0 [facility] Comment on above: Performed By: #### 5 7021-8 ####BHANU Treviño ([id number])[facility] ([facility])[address] [place] [address] MCV (RBC) [Entitic vol] 77 fL Low 80-100 [facility] Comment on above: Performed By: #### 5 7021-8 ####BHANU Treviño ([id number])[facility] ([facility])[address] [place] [address] Monocytes (Bld) [#/Vol] 1.01 x10*3/uL High 0.10-1.00 [facility] Comment on above: Performed By: #### 5 7021-8 ####BHANU Treviño ([id number])[facility] ([facility])[address] [place] [address] Monocytes/100 WBC (Bld) 11.3 % Normal 2.0-10.0 [facility] Comment on above: Performed By: #### 5 7021-8 ####BHANU Treviño ([id number])[facility] ([facility])[address] [place] [address] Neutrophils (Bld) [#/Vol] 6.68 x10*3/uL Normal 1.20-7.70 [facility] Comment on above: Result Comment: Perc ent differential counts (%) should be interpreted in the context of the absolute cell counts (cells/uL). Performed By: #### 5 7021-8 ####BHANU Treviño ([id number])[facility] ([facility])[address] [place] [address] Neutrophils/100 WBC (Bld) 74.7 % Normal 40.0-80.0 [facility] Comment on above: Performed By: #### 5 7021-8 ####BHANU Treviño ([id number])[facility] ([facility])[address] [place] [address] Nucleated RBC/100 WBC (Bld) [Ratio] 0.0 /100 WBCs Normal 0.0-0.0 [facility] Comment on above: Performed By: #### 5 7021-8 ####BHANU Treviño ([id number])[facility] ([facility])[address] [place] [address] Platelets (Bld) [#/Vol] 769 x10*3/uL High 150-450 [facility] Comment on above: Performed By: #### 5 7021-8 ####BHANU Treviño ([id number])[facility] ([facility])[address] [place] [address] RBC (Bld) [#/Vol] 3.57 x10*6/uL Low 4.50-5.90 [facility] Comment on above: Performed By: #### 5 7021-8 ####BHANU Treviño ([id number])[facility] ([facility])[address] [place] [address] WBC (Bld) [#/Vol] 9.0 x10*3/uL Normal 4.4-11.3 [facility] Comment on above: Performed By: #### 5 7021-8 ####BHANU GREGORY L ([id number])[facility] ([facility])[address] [place] [address] Basophils (Bld) [#/Vol] 0.06 x10*3/uL Normal 0.00-0.10 [facility] Comment on above: Performed By: #### 5 7021-8 ####BHANU GREGORY L ([id number])[facility] ([facility])[address] [place] [address] Basophils/100 WBC (Bld) 0.7 % Normal 0.0-2.0 [facility] Comment on above: Performed By: #### 5 7021-8 ####BHANU GREGORY L ([id number])[facility] ([facility])[address] [place] [address] Eosinophils (Bld) [#/Vol] 0.51 x10*3/uL Normal 0.00-0.70 [facility] Comment on above: Performed By: #### 5 7021-8 ####BHANU Treviño ([id number])[facility] ([facility])[id number] [place] [address] Eosinophils/100 WBC (Bld) 6.3 % Normal 0.0-6.0 [facility] Comment on above: Performed By: #### 5 7021-8 ####BHANU Treviño ([id number])[facility] ([facility])[address] [place] [address] Erythrocyte distribution width (RBC) [Ratio] 19.9 % High 11.5-14.5 [facility] Comment on above: Performed By: #### 5 7021-8 ####BHANU Treviño ([id number])[facility] [facility] ([facility])[address] [place] [address]218 Hematocrit (Bld) [Volume fraction] 26.6 % Low 41.0-52.0 [facility] Comment on above: Performed By: #### 5 7021-8 ####BHANU Treviño ([id number])[facility] ([facility])[address] [place] [address]323 Hemoglobin (Bld) [Mass/Vol] 8.4 g/dL Low 13.5-17.5 [facility] Comment on above: Performed By: #### 5 7021-8 ####BHANU Treviño ([id number])[facility] ([facility])[address] [place] [address] 81191 Immature granulocytes (Bld) [#/Vol] 0.05 x10*3/uL Normal 0.00-0.70 [facility] Comment on above: Performed By: #### 5 7021-8 ####BHANU Treviño ([id number])[facility] ([facility])[address] [place] [address] 60501 Immature granulocytes/100 WBC (Bld) 0.6 % Normal 0.0-0.9 [facility] Comment on above: Result Comment: Christine ture Granulocyte Count (IG) includes promyelocytes, myelocytes and metamyelocytes but does not include bands. Percent differential counts (%) should be interpreted in the context of the absolute cell counts (cells/UL). Performed By: #### 5 7021-8 ####BHANU Treviño ([id number])[facility] ([facility])[address] [place] [address] Lymphocytes (Bld) [#/Vol] 1.07 x10*3/uL Low 1.20-4.80 [facility] Comment on above: Performed By: #### 5 7021-8 ####BHANU Treviño ([id number])[facility] ([facility])[address] [place] [address] Lymphocytes/100 WBC (Bld) 13.2 % Normal 13.0-44.0 [facility] Comment on above: Performed By: #### 5 7021-8 ####BHANU Treviño ([id number])[facility] ([facility])[address] [place] [address] MCH (RBC) [Entitic mass] 24.3 pg Low 26.0-34.0 [facility] Comment on above: Performed By: #### 5 7021-8 ####BHANU Treviño ([id number])[facility] ([facility])[address] [place] [address] MCHC (RBC) [Mass/Vol] 31.6 g/dL Low 32.0-36.0 [facility] Comment on above: Performed By: #### 5 7021-8 ####BHANU Treviño ([id number])[facility] ([facility])[address] [place] [address] MCV (RBC) [Entitic vol] 77 fL Low 80-100 [facility] Comment on above: Performed By: #### 5 7021-8 ####BHANU Treviño ([id number])[facility] ([facility])[address] [place] [address] Monocytes (Bld) [#/Vol] 0.88 x10*3/uL Normal 0.10-1.00 [facility] Comment on above: Performed By: #### 5 7021-8 ####BHANU Treviño ([id number])[facility] ([facility])[address] [place] [address] Monocytes/100 WBC (Bld) 10.8 % Normal 2.0-10.0 [facility] Comment on above: Performed By: #### 5 7021-8 ####BHANU Treviño ([id number])[facility] ([facility])[address] [place] [address] Neutrophils (Bld) [#/Vol] 5.55 x10*3/uL Normal 1.20-7.70 [facility] Comment on above: Result Comment: Perc ent differential counts (%) should be interpreted in the context of the absolute cell counts (cells/uL). Performed By: #### 5 7021-8 ####BHANU Treviño ([id number])[facility] ([facility])[address]26 [place] [address] Neutrophils/100 WBC (Bld) 68.4 % Normal 40.0-80.0 [facility] Comment on above: Performed By: #### 5 7021-8 ####BHANU Treviño ([id number])[facility] ([facility])[address] [place] [address] Nucleated RBC/100 WBC (Bld) [Ratio] 0.0 /100 WBCs Normal 0.0-0.0 [facility] Comment on above: Performed By: #### 5 7021-8 ####BHANU Treviño ([id number])[facility] ([facility])[address] [place] [address] Platelets (Bld) [#/Vol] 713 x10*3/uL High 150-450 [facility] Comment on above: Performed By: #### 5 7021-8 ####BHANU Treviño ([id number])[facility] ([facility])[address] [place] [address] RBC (Bld) [#/Vol] 3.45 x10*6/uL Low 4.50-5.90 [facility] Comment on above: Performed By: #### 5 7021-8 ####BHANU Treviño ([id number])[facility] ([facility])[address] [place] [address] WBC (Bld) [#/Vol] 8.1 x10*3/uL Normal 4.4-11.3 [facility] Comment on above: Performed By: #### 5 7021-8 ####BHANU Treviño ([id number])[facility] ([facility])[address] [place] [address] Comprehensive metabolic 2000 panelon 01-22-2025 Albumin BCP dye [Mass/Vol] 2.2 g/dL Low 3.4-5.0 [facility] Comment on above: Performed By: #### 2 4323-8 ####BHANU Treviño ([id number])[facility] ([facility])[address] [place] [address] ALP [Catalytic activity/Vol] 68 U/L Normal 33-120 [facility] Comment on above: Performed By: #### 2 4323-8 ####BHANU Treviño ([id number])[facility] ([facility])[address] [place] [address] ALT With P-5'-P [Catalytic activity/Vol] 34 U/L Normal 10-52 [facility] Comment on above: Result Comment: Sydni ents treated with Sulfasalazine may generate falsely decreased results for ALT. Performed By: #### 2 4323-8 ####BHANU Treviño ([id number])[facility] ([facility])[address] [place] [address] Anion gap [Moles/Vol] 14 mmol/L Normal 10-20 [facility] Comment on above: Performed By: #### 2 4323-8 ####BHANU Treviño ([id number])[facility] ([facility])[address] [place] [address] AST With P-5'-P [Catalytic activity/Vol] 57 U/L High 9-39 [facility] Comment on above: Performed By: #### 2 4323-8 ####BHANU Treviño ([id number])[facility] ([facility])[address] [place] [address] Bilirubin [Mass/Vol] 0.4 mg/dL Normal 0.0-1.2 [facility] Comment on above: Performed By: #### 2 4323-8 ####BHANU Treviño ([id number])[facility] ([facility])[address]47 [place] [address] Calcium [Mass/Vol] 8.1 mg/dL Low 8.6-10.6 [facility] Comment on above: Performed By: #### 2 4323-8 ####BHANU Treviño ([id number])[facility] ([facility])[address] [place] [address] Chloride [Moles/Vol] 103 mmol/L Normal 98-107 [facility] Comment on above: Performed By: #### 2 4323-8 ####BHANU Treviño ([id number])[facility] ([facility])[address] [place] [address] CO2 [Moles/Vol] 27 mmol/L Normal 21-32 [facility] Comment on above: Performed By: #### 2 4323-8 ####BHANU Treviño ([id number])[facility] ([facility])[address]178 [place] [address] Creatinine [Mass/Vol] 1.11 mg/dL Normal 0.50-1.30 [facility] Comment on above: Performed By: #### 2 4323-8 ####BHANU Treviño ([id number])[facility] ([facility])[address] [place] [address] Glomerular filtration rate/1.73 sq M.predicted 80 mL/min/1.73m*2 Normal >60 [facility] Comment on above: Result Comment: Calc ulations of estimated GFR are performed using the 2020 CKD-EPI Study Refit equation without the race variable for the IDMS-Traceable creatinine methods.https://jasn.asnjournals.org/content/ /ASN.7772856393 Performed By: #### 2 4323-8 ####BHANU MATOSER L ([id number])[facility] ([facility])[address] [place] [address] Glucose [Mass/Vol] 95 mg/dL Normal 74-99 [facility] Comment on above: Performed By: #### 2 4323-8 ####BHANU FLEMINGMOTZER L ([id number])[facility] ([facility])[address]473 [place] [address] Potassium [Moles/Vol] 4.5 mmol/L Normal 3.5-5.3 [facility] Comment on above: Performed By: #### 2 4323-8 ####BHANU SCHMOTZER L ([id number])[facility] ([facility])[address]37 [place] [address] Protein [Mass/Vol] 5.4 g/dL Low 6.4-8.2 [facility] Comment on above: Performed By: #### 2 4323-8 ####BHANU SCHMOTZER L (83375)[facility] ([facility])[address] [place] [address] Sodium [Moles/Vol] 139 mmol/L Normal 136-145 [facility] Comment on above: Performed By: #### 2 4323-8 ####BHANU FLEMINGMOTZER L ([id number])[facility] ([facility])[address] [place] [address] Urea nitrogen [Mass/Vol] 7 mg/dL Normal 6-23 [facility] Comment on above: Performed By: #### 2 4323-8 ####BHANU Treviño ([id number])[facility] ([facility])[address] [place] [address] Creatine kinaseon 01-22-2025 CK [Catalytic activity/Vol] 21 U/L Normal 0-325 [facility] Comment on above: Performed By: #### 2 157-6 ####BHANU Treviño ([id number])[facility] ([facility])[address] [place] [address]71 Magnesiumon 01-22-2025 Magnesium [Mass/Vol] 1.96 mg/dL Normal 1.60-2.40 [facility] Comment on above: Performed By: #### 1 9123-9 ####BHANU Treviño ([id number])[facility] ([facility])[address] [place] [address]64 Blood type and Indirect anti body screen panel (Bld)on 01-21-2025 ABO group Nom (Bld) A Normal [facility] Comment on above: Performed By: #### 3 4532-2 ####BHANU Treviño ([id number])[facility] ([facility])[address] [place] [address]136 Blood group antibody screen Ql Negative [facility] Comment on above: Performed By: #### 3 4532-2 ####BHANU Treviño ([id number])[facility] ([facility])[address] [place] [address] D Ag Ql (Bld) Positive [facility] Comment on above: Performed By: #### 3 4532-2 ####BHANU Treviño ([id number])[facility] ([facility])[address] [place] [address]87 CBC W Auto Differential pane l (Bld)on 01-21-2025 Basophils (Bld) [#/Vol] 0.06 x10*3/uL Normal 0.00-0.10 [facility] Comment on above: Performed By: #### 5 7021-8 ####BHANU Treviño ([id number])[facility] ([facility])[address] [place] [address] Basophils/100 WBC (Bld) 0.7 % Normal 0.0-2.0 [facility] Comment on above: Performed By: #### 5 7021-8 ####BHANU Treviño ([id number])[facility] ([facility])[address]606 [place] [address] Eosinophils (Bld) [#/Vol] 0.24 x10*3/uL Normal 0.00-0.70 [facility] Comment on above: Performed By: #### 5 7021-8 ####BHANU Treviño (83926)[facility] ([facility])[address]148 [place] [address] Eosinophils/100 WBC (Bld) 2.7 % Normal 0.0-6.0 [facility] Comment on above: Performed By: #### 5 7021-8 ####BHANU Treviño (65279)[facility] ([facility])[address]55 [place] [address] Erythrocyte distribution width (RBC) [Ratio] 19.6 % High 11.5-14.5 [facility] Comment on above: Performed By: #### 5 7021-8 ####BHANU Treviño (30255)[facility] ([facility])[address]37 [place] [address] Hematocrit (Bld) [Volume fraction] 25.9 % Low 41.0-52.0 [facility] Comment on above: Performed By: #### 5 7021-8 ####BHANU Treviño ([id number])[facility] ([facility])[address] [place] [address] Hemoglobin (Bld) [Mass/Vol] 8.3 g/dL Low 13.5-17.5 [facility] Comment on above: Performed By: #### 5 7021-8 ####BHANU Treviño ([id number])[facility] ([facility])[address]118 [place] [address] Immature granulocytes (Bld) [#/Vol] 0.03 x10*3/uL Normal 0.00-0.70 [facility] Comment on above: Performed By: #### 5 7021-8 ####BHANU Treviño (46874)[facility] ([facility])[address] [place] [address] Immature granulocytes/100 WBC (Bld) 0.3 % Normal 0.0-0.9 [facility] Comment on above: Result Comment: Christine ture Granulocyte Count (IG) includes promyelocytes, myelocytes and metamyelocytes but does not include bands. Percent differential counts (%) should be interpreted in the context of the absolute cell counts (cells/UL). Performed By: #### 5 7021-8 ####BHANU Treviño ([id number])[facility] ([facility])[address]456 [place] [address] Lymphocytes (Bld) [#/Vol] 1.18 x10*3/uL Low 1.20-4.80 [facility] Comment on above: Performed By: #### 5 7021-8 ####BHANU Treviño ([id number])[facility] ([facility])[address]18 [place] [address] Lymphocytes/100 WBC (Bld) 13.5 % Normal 13.0-44.0 [facility] Comment on above: Performed By: #### 5 7021-8 ####BHANU Treviño ([id number])[facility] ([facility])[address] [place] [address] MCH (RBC) [Entitic mass] 24.7 pg Low 26.0-34.0 [facility] Comment on above: Performed By: #### 5 7021-8 ####BHANU Treviño ([id number])[facility] ([facility])[address]874 [place] [address] MCHC (RBC) [Mass/Vol] 32.0 g/dL Normal 32.0-36.0 [facility] Comment on above: Performed By: #### 5 7021-8 ####BHANU Treviño ([id number])[facility] ([facility])[address]52 [place] [address] MCV (RBC) [Entitic vol] 77 fL Low 80-100 U [facility] Comment on above: Performed By: #### 5 7021-8 ####BHANU FLEMINGMOJOSEFA L ([id number])[facility] ([facility])[address] [place] [address]111 Monocytes (Bld) [#/Vol] 1.01 x10*3/uL High 0.10-1.00 [facility] Comment on above: Performed By: #### 5 7021-8 ####BHANU Treviño ([id number])[facility] ([facility])[address] [place] [address] Monocytes/100 WBC (Bld) 11.5 % Normal 2.0-10.0 [facility] Comment on above: Performed By: #### 5 7021-8 ####BHANU Treviño ([id number])[facility] ([facility])[address] [place] [address] 46272 Neutrophils (Bld) [#/Vol] 6.25 x10*3/uL Normal 1.20-7.70 [facility] Comment on above: Result Comment: Perc ent differential counts (%) should be interpreted in the context of the absolute cell counts (cells/uL). Performed By: #### 5 7021-8 ####BHANU Treviño ([id number])[facility] ([facility])[address]71 [place] [address] Neutrophils/100 WBC (Bld) 71.3 % Normal 40.0-80.0 [facility] Comment on above: Performed By: #### 5 7021-8 ####BHANU FLEMINGMOTZALANNA L ([id number])[facility] ([facility])[address]79 [place] [address] Nucleated RBC/100 WBC (Bld) [Ratio] 0.0 /100 WBCs Normal 0.0-0.0 [facility] Comment on above: Performed By: #### 5 7021-8 ####BHANU Treviño ([id number])[facility] ([facility])[address]161 [place] [address] Platelets (Bld) [#/Vol] 730 x10*3/uL High 150-450 [facility] Comment on above: Performed By: #### 5 7021-8 ####BHANU Treviño ([id number])[facility] ([facility])[address]375 [place] [address] RBC (Bld) [#/Vol] 3.36 x10*6/uL Low 4.50-5.90 [facility] Comment on above: Performed By: #### 5 7021-8 ####BHANU Treviño ([id number])[facility] ([facility])[address]11 [place] [address] WBC (Bld) [#/Vol] 8.8 x10*3/uL Normal 4.4-11.3 [facility] Comment on above: Performed By: #### 5 7021-8 ####BHANU Treviño ([id number])[facility] ([facility])[address]655 [place] [address] Basophils (Bld) [#/Vol] 0.07 x10*3/uL Normal 0.00-0.10 [facility] Comment on above: Performed By: #### 5 7021-8 ####BHANU Treviño ([id number])[facility] ([facility])[address]422 [place] [address] Basophils/100 WBC (Bld) 0.8 % Normal 0.0-2.0 [facility] Comment on above: Performed By: #### 5 7021-8 ####BHANU Treviño ([id number])[facility] ([facility])[address]26 [place] [address] Eosinophils (Bld) [#/Vol] 0.16 x10*3/uL Normal 0.00-0.70 [facility] Comment on above: Performed By: #### 5 7021-8 ####BHANU Treviño ([id number])[facility] ([facility])[address] [place] [address] Eosinophils/100 WBC (Bld) 1.7 % Normal 0.0-6.0 [facility] Comment on above: Performed By: #### 5 7021-8 ####BHANU Treviño ([id number])[facility] ([facility])[address] [place] [address] Erythrocyte distribution width (RBC) [Ratio] 19.5 % High 11.5-14.5 [facility] Comment on above: Performed By: #### 5 7021-8 ####BHANU Treviño ([id number])[facility] ([facility])[address] [place] [address] Hematocrit (Bld) [Volume fraction] 25.5 % Low 41.0-52.0 [facility] Comment on above: Performed By: #### 5 7021-8 ####BHANU Treviño ([id number])[facility] ([facility])[address] [place] [address] Hemoglobin (Bld) [Mass/Vol] 8.3 g/dL Low 13.5-17.5 [facility] Comment on above: Performed By: #### 5 7021-8 ####BHANU Treviño (65329)[facility] ([facility])[address] [place] [address] Immature granulocytes (Bld) [#/Vol] 0.05 x10*3/uL Normal 0.00-0.70 [facility] Comment on above: Performed By: #### 5 7021-8 ####BHANU Treviño (72358)[facility] ([facility])[address] [place] [address]305 Immature granulocytes/100 WBC (Bld) 0.5 % Normal 0.0-0.9 [facility] Comment on above: Result Comment: Christine ture Granulocyte Count (IG) includes promyelocytes, myelocytes and metamyelocytes but does not include bands. Percent differential counts (%) should be interpreted in the context of the absolute cell counts (cells/UL). Performed By: #### 5 7021-8 ####BHANU Treviño ([id number])[facility] ([facility])[address]361 [place] [address] Lymphocytes (Bld) [#/Vol] 0.99 x10*3/uL Low 1.20-4.80 [facility] Comment on above: Performed By: #### 5 7021-8 ####BHANU Treviño ([id number])[facility] ([facility])[address]15 [place] [address] Lymphocytes/100 WBC (Bld) 10.8 % Normal 13.0-44.0 [facility] Comment on above: Performed By: #### 5 7021-8 ####BHANU Treviño ([id number])[facility] ([facility])[address]691 [place] [address] MCH (RBC) [Entitic mass] 25.0 pg Low 26.0-34.0 [facility] Comment on above: Performed By: #### 5 7021-8 ####BHANU Treviño ([id number])[facility] ([facility])[address]357 [place] [address] MCHC (RBC) [Mass/Vol] 32.5 g/dL Normal 32.0-36.0 [facility] Comment on above: Performed By: #### 5 7021-8 ####BHANU Treviño ([id number])[facility] ([facility])[address]183 [place] [address] MCV (RBC) [Entitic vol] 77 fL Low 80-100 U [facility] Comment on above: Performed By: #### 5 7021-8 ####BHANU Treviño ([id number])[facility] ([facility])[address]17 [place] [address] Monocytes (Bld) [#/Vol] 1.02 x10*3/uL High 0.10-1.00 [facility] Comment on above: Performed By: #### 5 7021-8 ####BHANU Treviño ([id number])[facility] ([facility])[address] [place] [address] Monocytes/100 WBC (Bld) 11.1 % Normal 2.0-10.0 [facility] Comment on above: Performed By: #### 5 7021-8 ####BHANU GREGORY L ([id number])[facility] ([facility])[address] [place] [address] Neutrophils (Bld) [#/Vol] 6.90 x10*3/uL Normal 1.20-7.70 [facility] Comment on above: Result Comment: Perc ent differential counts (%) should be interpreted in the context of the absolute cell counts (cells/uL). Performed By: #### 5 7021-8 ####BHANU Treviño ([id number])[facility] ([facility])[address] [place] [address] Neutrophils/100 WBC (Bld) 75.1 % Normal 40.0-80.0 [facility] Comment on above: Performed By: #### 5 7021-8 ####BHANU Treviño ([id number])[facility] ([facility])[address] [place] [address] Nucleated RBC/100 WBC (Bld) [Ratio] 0.0 /100 WBCs Normal 0.0-0.0 [facility] Comment on above: Performed By: #### 5 7021-8 ####BHANU GREGORY L ([id number])[facility] ([facility])[address] [place] [address] Platelets (Bld) [#/Vol] 690 x10*3/uL High 150-450 [facility] Comment on above: Performed By: #### 5 7021-8 ####BHANU GREGORY L ([id number])[facility] ([facility])[address] [place] [address] RBC (Bld) [#/Vol] 3.32 x10*6/uL Low 4.50-5.90 [facility] Comment on above: Performed By: #### 5 7021-8 ####BHANU Treviño ([id number])[facility] ([facility])[address] [place] [address] WBC (Bld) [#/Vol] 9.2 x10*3/uL Normal 4.4-11.3 [facility] Comment on above: Performed By: #### 5 7021-8 ####BHANU Treviño ([id number])[facility] ([facility])[address] [place] [address] Comprehensive metabolic 2000 panelon 01-21-2025 Albumin BCP dye [Mass/Vol] 2.2 g/dL Low 3.4-5.0 [facility] Comment on above: Performed By: #### 2 4323-8 ####BHANU Treviño ([id number])[facility] ([facility])[address] [place] [address] ALP [Catalytic activity/Vol] 62 U/L Normal 33-120 [facility] Comment on above: Performed By: #### 2 4323-8 ####BHANU Treviño ([id number])[facility] ([facility])[address] [place] [address] ALT With P-5'-P [Catalytic activity/Vol] 24 U/L Normal 10-52 [facility] Comment on above: Result Comment: Sydni ents treated with Sulfasalazine may generate falsely decreased results for ALT. Performed By: #### 2 4323-8 ####BHANU Treviño ([id number])[facility] [facility] ([facility])[address] [place] [address] Anion gap [Moles/Vol] 12 mmol/L Normal 10-20 [facility] Comment on above: Performed By: #### 2 4323-8 ####BHANU Treviño ([id number])[facility] ([facility])[address] [facility] [place] [address] AST With P-5'-P [Catalytic activity/Vol] 40 U/L High 9-39 [facility] Comment on above: Performed By: #### 2 4323-8 ####BHANU Treviño ([id number])[facility] ([facility])[address] [place] [address] Bilirubin [Mass/Vol] 0.4 mg/dL Normal 0.0-1.2 [facility] Comment on above: Performed By: #### 2 432-8 ####BHANU Treviño ([id number])[facility] ([facility])[address] [place] [address] Calcium [Mass/Vol] 8.0 mg/dL Low 8.6-10.6 [facility] Comment on above: Performed By: #### 2 4323-8 ####BHANU Treviño ([id number])[facility] ([facility])[address] [place] [address] Chloride [Moles/Vol] 104 mmol/L Normal 98-107 [facility] Comment on above: Performed By: #### 2 4323-8 ####BHANU Treviño ([id number])[facility] ([facility])[address] [place] [address] CO2 [Moles/Vol] 26 mmol/L Normal 21-32 [facility] Comment on above: Performed By: #### 2 4323-8 ####BHANU Treviño ([id number])[facility] ([facility])[address] [place] [address] Creatinine [Mass/Vol] 1.09 mg/dL Normal 0.50-1.30 [facility] Comment on above: Performed By: #### 2 4323-8 ####BHANU Treviño ([id number])[facility] ([facility])[address] [place] [address] Glomerular filtration rate/1.73 sq M.predicted 82 mL/min/1.73m*2 Normal >60 [facility] Comment on above: Result Comment: Calc ulations of estimated GFR are performed using the 2020 CKD-EPI Study Refit equation without the race variable for the IDMS-Traceable creatinine methods.https://jasn.asnjournals.org/content/ /ASN.[id number] Performed By: #### 2 4323-8 ####BHANU Treviño ([id number])[facility] ([facility])[address] [place] [address] Glucose [Mass/Vol] 103 mg/dL High 74-99 [facility] Comment on above: Performed By: #### 2 4323-8 ####BHANU Treviño ([id number])[facility] ([facility])[address] [place] [address] Potassium [Moles/Vol] 4.0 mmol/L Normal 3.5-5.3 [facility] Comment on above: Performed By: #### 2 4323-8 ####BHANU Treviño ([id number])[facility] ([facility])[address] [place] [address] Protein [Mass/Vol] 6.1 g/dL Low 6.4-8.2 [facility] Comment on above: Performed By: #### 2 4323-8 ####BHANU GREGORY L ([id number])[facility] ([facility])[address] [place] [address] Sodium [Moles/Vol] 138 mmol/L Normal 136-145 [facility] Comment on above: Performed By: #### 2 4323-8 ####BHANU GREGORY L ([id number])[facility] ([facility])[address] [place] [address] Urea nitrogen [Mass/Vol] 7 mg/dL Normal 6-23 [facility] Comment on above: Performed By: #### 2 4323-8 ####BHANU Treviño ([id number])[facility] ([facility])[address] [place] [address] Magnesiumon 01-21-2025 Magnesium [Mass/Vol] 1.92 mg/dL Normal 1.60-2.40 [facility] Comment on above: Performed By: #### 1 9123-9 ####BHANU Treviño ([id number])[facility] ([facility])[address] [place] [address] CBC W Auto Differential pane l (Bld)on 01-20-2025 Basophils (Bld) [#/Vol] 0.06 x10*3/uL Normal 0.00-0.10 [facility] Comment on above: Performed By: #### 5 7021-8 ####BHANU Treviño ([id number])[facility] ([facility])[address] [place] [address] Basophils/100 WBC (Bld) 0.6 % Normal 0.0-2.0 [facility] Comment on above: Performed By: #### 5 7021-8 ####BHANU Treviño ([id number])[facility] ([facility])[address] [place] [address] Eosinophils (Bld) [#/Vol] 0.44 x10*3/uL Normal 0.00-0.70 [facility] Comment on above: Performed By: #### 5 7021-8 ####BHANU Treviño ([id number])[facility] ([facility])[address] [place] [address] Eosinophils/100 WBC (Bld) 4.2 % Normal 0.0-6.0 [facility] Comment on above: Performed By: #### 5 7021-8 ####BHAUN Treviño ([id number])[facility] ([facility])[address] [place] [address] Erythrocyte distribution width (RBC) [Ratio] 19.6 % High 11.5-14.5 [facility] Comment on above: Performed By: #### 5 7021-8 ####BHANU Treviño ([id number])[facility] ([facility])[address] [place] [address] Hematocrit (Bld) [Volume fraction] 25.2 % Low 41.0-52.0 [facility] Comment on above: Performed By: #### 5 7021-8 ####BHANU Treviño ([id number])[facility] ([facility])[address] [place] [address] Hemoglobin (Bld) [Mass/Vol] 8.1 g/dL Low 13.5-17.5 [facility] Comment on above: Performed By: #### 5 7021-8 ####BHANU Treviño ([id number])[facility] ([facility])[address] [place] [address] Immature granulocytes (Bld) [#/Vol] 0.05 x10*3/uL Normal 0.00-0.70 [facility] Comment on above: Performed By: #### 5 7021-8 ####BHANU Treviño ([id number])[facility] ([facility])[address] [place] [address] Immature granulocytes/100 WBC (Bld) 0.5 % Normal 0.0-0.9 [facility] Comment on above: Result Comment: Christine ture Granulocyte Count (IG) includes promyelocytes, myelocytes and metamyelocytes but does not include bands. Percent differential counts (%) should be interpreted in the context of the absolute cell counts (cells/UL). Performed By: #### 5 7021-8 ####BHANU Treviño ([id number])[facility] ([facility])[address] [place] [address] Lymphocytes (Bld) [#/Vol] 1.24 x10*3/uL Normal 1.20-4.80 [facility] Comment on above: Performed By: #### 5 7021-8 ####BHANU Treviño ([id number])[facility] ([facility])[address] [place] [address] Lymphocytes/100 WBC (Bld) 11.8 % Normal 13.0-44.0 [facility] Comment on above: Performed By: #### 5 7021-8 ####BHANU Treviño ([id number])[facility] ([facility])[address] [place] [address] MCH (RBC) [Entitic mass] 24.7 pg Low 26.0-34.0 [facility] Comment on above: Performed By: #### 5 7021-8 ####BHANU Treviño ([id number])[facility] ([facility])[address] [place] [address] MCHC (RBC) [Mass/Vol] 32.1 g/dL Normal 32.0-36.0 [facility] Comment on above: Performed By: #### 5 7021-8 ####BHANU Treviño ([id number])[facility] ([facility])[address] [place] [address] MCV (RBC) [Entitic vol] 77 fL Low 80-100 U [facility] Comment on above: Performed By: #### 5 7021-8 ####BHANU Treviño ([id number])[facility] ([facility])[address] [place] [address] Monocytes (Bld) [#/Vol] 1.16 x10*3/uL High 0.10-1.00 [facility] Comment on above: Performed By: #### 5 7021-8 ####BHANU Treviño (49953)[facility] ([facility])[address] [place] [address] Monocytes/100 WBC (Bld) 11.0 % Normal 2.0-10.0 [facility] Comment on above: Performed By: #### 5 7021-8 ####BHANU Treviño ([id number])[facility] ([facility])[address] [place] [address] Neutrophils (Bld) [#/Vol] 7.58 x10*3/uL Normal 1.20-7.70 [facility] Comment on above: Result Comment: Perc ent differential counts (%) should be interpreted in the context of the absolute cell counts (cells/uL). Performed By: #### 5 7021-8 ####BHANU Treviño ([id number])[facility] ([facility])[address] [place] [address] Neutrophils/100 WBC (Bld) 71.9 % Normal 40.0-80.0 [facility] Comment on above: Performed By: #### 5 7021-8 ####BHANU Treviño ([id number])[facility] ([facility])[address] [place] [address] Nucleated RBC/100 WBC (Bld) [Ratio] 0.0 /100 WBCs Normal 0.0-0.0 [facility] Comment on above: Performed By: #### 5 7021-8 ####BHANU Treviño ([id number])[facility] ([facility])[address] [place] [address] Platelets (Bld) [#/Vol] 731 x10*3/uL High 150-450 [facility] Comment on above: Performed By: #### 5 7021-8 ####BHANU Treviño ([id number])[facility] ([facility])[address] [place] [address] RBC (Bld) [#/Vol] 3.28 x10*6/uL Low 4.50-5.90 [facility] Comment on above: Performed By: #### 5 7021-8 ####BHANU Treviño ([id number])[facility] ([facility])[address] [place] [address] WBC (Bld) [#/Vol] 10.5 x10*3/uL Normal 4.4-11.3 [facility] Comment on above: Performed By: #### 5 7021-8 ####BHANU Treviño ([id number])[facility] ([facility])[address] [place] [address] Basophils (Bld) [#/Vol] 0.06 x10*3/uL Normal 0.00-0.10 [facility] Comment on above: Performed By: #### 5 7021-8 ####BHANU Treviño ([id number])[facility] ([facility])[address] [place] [address] Basophils/100 WBC (Bld) 0.6 % Normal 0.0-2.0 [facility] Comment on above: Performed By: #### 5 7021-8 ####BHANU Treviño (75216)[facility] ([facility])[address] [place] [address] Eosinophils (Bld) [#/Vol] 0.50 x10*3/uL Normal 0.00-0.70 [facility] Comment on above: Performed By: #### 5 7021-8 ####BHANU Treviño ([id number])[facility] ([facility])[address] [place] [address] Eosinophils/100 WBC (Bld) 5.2 % Normal 0.0-6.0 [facility] Comment on above: Performed By: #### 5 7021-8 ####BHANU Treviño ([id number])[facility] ([facility])[address] [place] [address] Erythrocyte distribution width (RBC) [Ratio] 19.6 % High 11.5-14.5 [facility] Comment on above: Performed By: #### 5 7021-8 ####BHANU Treviño ([id number])[facility] ([facility])[address] [place] [address] Hematocrit (Bld) [Volume fraction] 25.2 % Low 41.0-52.0 [facility] Comment on above: Performed By: #### 5 7021-8 ####BHANU Treviño (39453)[facility] ([facility])[address] [place] [address] Hemoglobin (Bld) [Mass/Vol] 7.9 g/dL Low 13.5-17.5 [facility] Comment on above: Performed By: #### 5 7021-8 ####BHANU Treviño ([id number])[facility] ([facility])[address] [place] [address] Immature granulocytes (Bld) [#/Vol] 0.08 x10*3/uL Normal 0.00-0.70 [facility] Comment on above: Performed By: #### 5 7021-8 ####BHANU FLEMINGMOJOSEFA L ([id number])[facility] ([facility])[address] [place] [address] Immature granulocytes/100 WBC (Bld) 0.8 % Normal 0.0-0.9 [facility] Comment on above: Result Comment: Christine ture Granulocyte Count (IG) includes promyelocytes, myelocytes and metamyelocytes but does not include bands. Percent differential counts (%) should be interpreted in the context of the absolute cell counts (cells/UL). Performed By: #### 5 7021-8 ####BHANU GREGORY L ([id number])[facility] ([facility])[address] [place] [address] Lymphocytes (Bld) [#/Vol] 1.26 x10*3/uL Normal 1.20-4.80 [facility] Comment on above: Performed By: #### 5 7021-8 ####BHANU Treviño (82800)[facility] ([facility])[address] [place] [address] Lymphocytes/100 WBC (Bld) 13.1 % Normal 13.0-44.0 [facility] Comment on above: Performed By: #### 5 7021-8 ####BHANU GREGORY L (90540)[facility] ([facility])[address] [place] [address] MCH (RBC) [Entitic mass] 24.7 pg Low 26.0-34.0 [facility] Comment on above: Performed By: #### 5 7021-8 ####BHANU GREGORY L (30162)[facility] ([facility])[address] [place] [address] MCHC (RBC) [Mass/Vol] 31.3 g/dL Low 32.0-36.0 [facility] Comment on above: Performed By: #### 5 7021-8 ####BHANU Treviño ([id number])[facility] ([facility])[address] [place] [address] MCV (RBC) [Entitic vol] 79 fL Low 80-100 U [facility] Comment on above: Performed By: #### 5 7021-8 ####BHANU Treviño ([id number])[facility] ([facility])[address] [place] [address] Monocytes (Bld) [#/Vol] 1.08 x10*3/uL High 0.10-1.00 [facility] Comment on above: Performed By: #### 5 7021-8 ####BHANU Treviño ([id number])[facility] ([facility])[address] [place] [address] Monocytes/100 WBC (Bld) 11.3 % Normal 2.0-10.0 [facility] Comment on above: Performed By: #### 5 7021-8 ####BHANU Treviño (14001)[facility] ([facility])[address] [place] [address] Neutrophils (Bld) [#/Vol] 6.62 x10*3/uL Normal 1.20-7.70 [facility] Comment on above: Result Comment: Perc ent differential counts (%) should be interpreted in the context of the absolute cell counts (cells/uL). Performed By: #### 5 7021-8 ####BHANU Treviño ([id number])[facility] ([facility])[address] [place] [address] Neutrophils/100 WBC (Bld) 69.0 % Normal 40.0-80.0 [facility] Comment on above: Performed By: #### 5 7021-8 ####BHANU Treviño ([id number])[facility] ([facility])[address] [place] [address] Nucleated RBC/100 WBC (Bld) [Ratio] 0.0 /100 WBCs Normal 0.0-0.0 [facility] Comment on above: Performed By: #### 5 7021-8 ####BHANU Treviño ([id number])[facility] ([facility])[address] [place] [address] Platelets (Bld) [#/Vol] 689 x10*3/uL High 150-450 [facility] Comment on above: Performed By: #### 5 7021-8 ####BHANU Treviño ([id number])[facility] ([facility])[address] [place] [address] RBC (Bld) [#/Vol] 3.20 x10*6/uL Low 4.50-5.90 [facility] Comment on above: Performed By: #### 5 7021-8 ####BHANU Treviño (47503)[facility] ([facility])[address] [place] [address] WBC (Bld) [#/Vol] 9.6 x10*3/uL Normal 4.4-11.3 [facility] Comment on above: Performed By: #### 5 7021-8 ####BHANU Treviño (53144)[facility] ([facility])[address] [place] [address] Comprehensive metabolic 2000 panelon 01-20-2025 Albumin BCP dye [Mass/Vol] 2.2 g/dL Low 3.4-5.0 [facility] Comment on above: Performed By: #### 2 4323-8 ####BHANU Treviño ([id number])[facility] ([facility])[address] [place] [address] ALP [Catalytic activity/Vol] 62 U/L Normal 33-120 [facility] Comment on above: Performed By: #### 2 4323-8 ####BHANU Treviño (49184)[facility] ([facility])[address] [place] [address] ALT With P-5'-P [Catalytic activity/Vol] 18 U/L Normal 10-52 [facility] Comment on above: Result Comment: Sydni ents treated with Sulfasalazine may generate falsely decreased results for ALT. Performed By: #### 2 4323-8 ####BHANU Treviño ([id number])[facility] ([facility])[address] [place] [address] Anion gap [Moles/Vol] 11 mmol/L Normal 10-20 [facility] Comment on above: Performed By: #### 2 4323-8 ####BHANU Treviño ([id number])[facility] ([facility])[address] [place] [address] AST With P-5'-P [Catalytic activity/Vol] 30 U/L Normal 9-39 [facility] Comment on above: Performed By: #### 2 4323-8 ####BHANU GREGORY L ([id number])[facility] ([facility])[address] [place] [address] Bilirubin [Mass/Vol] 0.3 mg/dL Normal 0.0-1.2 [facility] Comment on above: Performed By: #### 2 4323-8 ####BHANU GREGORY L (96104)[facility] ([facility])[address] [place] [address] Calcium [Mass/Vol] 7.9 mg/dL Low 8.6-10.6 [facility] Comment on above: Performed By: #### 2 4323-8 ####BHANU FLEMINGMOTZER L ([id number])[facility] ([facility])[address] [place] [address] Chloride [Moles/Vol] 106 mmol/L Normal 98-107 [facility] Comment on above: Performed By: #### 2 4323-8 ####BHANU GREGORY L (59955)[facility] ([facility])[address] [place] [address] CO2 [Moles/Vol] 26 mmol/L Normal 21-32 [facility] Comment on above: Performed By: #### 2 4323-8 ####BHANU Treviño (57090)[facility] ([facility])[address] [place] [address] Creatinine [Mass/Vol] 1.08 mg/dL Normal 0.50-1.30 [facility] Comment on above: Performed By: #### 2 4323-8 ####BHANU Treviño ([id number])[facility] ([facility])[address] [place] [address] Glomerular filtration rate/1.73 sq M.predicted 83 mL/min/1.73m*2 Normal >60 [facility] Comment on above: Result Comment: Calc ulations of estimated GFR are performed using the 2020 CKD-EPI Study Refit equation without the race variable for the IDMS-Traceable creatinine methods.https://jasn.asnjournals.org/content/early/ /ASN.5914811454 Performed By: #### 2 4323-8 ####BHANU Treviño (64447)[facility] ([facility])[address] [place] [address] Glucose [Mass/Vol] 100 mg/dL High 74-99 [facility] Comment on above: Performed By: #### 2 4323-8 ####BHANU Treviño (68378)[facility] ([facility])[address] [place] [address] Potassium [Moles/Vol] 3.8 mmol/L Normal 3.5-5.3 [facility] Comment on above: Performed By: #### 2 4323-8 ####BHANU Treviño ([id number])[facility] ([facility])[address] [place] [address] Protein [Mass/Vol] 5.5 g/dL Low 6.4-8.2 [facility] Comment on above: Performed By: #### 2 4323-8 ####BHANU Treviño ([id number])[facility] ([facility])[address] [place] [address] Sodium [Moles/Vol] 139 mmol/L Normal 136-145 [facility] Comment on above: Performed By: #### 2 4323-8 ####BHANU Treviño (75879)[facility] ([facility])[address] [place] [address] Urea nitrogen [Mass/Vol] 7 mg/dL Normal 6-23 [facility] Comment on above: Performed By: #### 2 4323-8 ####BHANU Treviño ([id number])[facility] ([facility])[address] [place], [place] [id number] Magnesiumon 01-20-2025 Magnesium [Mass/Vol] 1.94 mg/dL Normal 1.60-2.40 [facility] Comment on above: Performed By: #### 1 9123-9 ####BHANU Treviño ([id number])[facility] ([facility])[address] [place] [phone] RBC shape Nom (Bld)on 2024 Hypochromia Ql (Bld) Mild Normal [facility] Comment on above: Performed By: #### 1 8225-3 ####BHANU Treviño ([id number])[facility] ([facility])[address] [place] [id number] RBC morphology finding Nom (Bld) See Below Normal [facility] Comment on above: Performed By: #### 1 8225-3 ####BHANU Treviño ([id number])[facility] ([facility])[address] [place] [phone] CBC W Auto Differential pane l (Bld)on 01-19-2025 Basophils (Bld) [#/Vol] 0.05 x10*3/uL Normal 0.00-0.10 [facility] Comment on above: Performed By: #### 5 7021-8 ####BHANU Treviño ([id number])[facility] ([facility])[address] [place] [address] Basophils/100 WBC (Bld) 0.5 % Normal 0.0-2.0 [facility] Comment on above: Performed By: #### 5 7021-8 ####BHANU Treviño ([id number])[facility] ([facility])[address] [place] [address] No Panel Informationon 01-13 Actual Fractions Delivered 5 [facility] Actual Session Delivered Dose 400 cGray [facility] Actual Total Dose 2000 cGray [facility] Course Number 1 [facility] Elapsed Days 6 [facility] Last Date 01/13/2025 [facility] Prescribed Fractional Dose 400 cGray [facility] Prescribed Number of Fractions 5 [facility] Prescribed Technique 3D [facility] Prescribed Total Dose 2000 [facility]Gray [facility] Prescription Pattern Comment 1 cm bolus [facility] Start Date 01/07/2025 [facility] Treatment Site L [facility] Rad Onc Msq Treatment [place] yon 01-10-2025 Actual Fractions Delivered 4 [facility] Actual Session Delivered Dose 400 cGray [facility] Actual Total Dose 1600 cGray [facility] Course Number 1 [facility] Elapsed Days 3 [facility] Last Date 01/10/2025 [facility] Prescribed Fractional Dose 400 cGray [facility] Prescribed Number of Fractions 5 [facility] Prescribed Technique 3D [facility] [facility] Prescribed Total Dose 2000 cGray [facility] Prescription Pattern Comment 1 cm bolus [facility] Start Date 01/07/2025 [facility] Treatment Site L [facility] Rad Onc Msq Treatment [place] yon 01-09-2025 Actual Fractions Delivered 3 [facility] Actual Session Delivered Dose 400 cGray [facility] Actual Total Dose 1200 cGray [facility] Course Number 1 [facility] Elapsed Days 2 [facility] Last Date 01/09/2025 [facility] Prescribed Fractional Dose 400 cGray [facility] Prescribed Number of Fractions 5 [facility] Prescribed Technique 3D [facility] Prescribed Total Dose 2000 [facility]Gray [facility] Prescription Pattern Comment 1 cm bolus [facility] Start Date 01/07/2025 [facility] Treatment Site L [facility] Rad Onc Msq Treatment [place] yon 01-08-2025 Actual Fractions Delivered 2 [facility] Actual Session Delivered Dose 400 cGray [facility] Actual Total Dose 800 cGray [facility] Course Number 1 [facility] Elapsed Days 1 [facility] Last Date 01/08/2025 [facility] Prescribed Fractional Dose 400 cGray [facility] Prescribed Number of Fractions 5 [facility] Prescribed Technique 3D [facility] Prescribed Total Dose 2000 [facility]Gray [facility] Prescription Pattern Comment 1 cm bolus [facility] Start Date 01/07/2025 [facility] Treatment Site L [facility] No Panel Informationon 01-02 These images [...] maintained or improved Outcome: Adequate for Discharge Normal [facility] 30 Problem: Knowledge Deficit Goal: Patient/family/careg [...] by Diana Wise RN Outcome: Progressing Normal [facility] BASIC METABOLIC PANELon 04-0 Anion gap [Moles/Vol] 7 mmol/L Normal 3-13 [facility] Comment on above: Performed By: #### L [id number] ####Heating And Air Conditioning Mechanic: JAZLYN JIMENEZ ([id number])[facility])[address] [place] [address] Calcium [Mass/Vol] 10.3 mg/dL High 8.4-10.2 [facility] Comment on above: Performed By: #### L AB15 ####Heating And Air Conditioning Mechanic: JAZLYN JIMENEZ ([phone])[facility] ([facility])[address] [place] [address] [place] Chloride [Moles/Vol] 108 mmol/L High 98-107 [facility] Comment on above: Performed By: #### L AB15 ####Heating And Air Conditioning Mechanic: JAZLYN JIMENEZ ([phone])[facility] ([facility])[address] [place] [address] [place] CO2 [Moles/Vol] 24 mmol/L Normal 22-29 [facility] Comment on above: Performed By: #### L [id number] ####Heating And Air Conditioning Mechanic: JAZLYN JIMENEZ ([phone])[facility] ([facility])[address] [place] [address] Creatinine [Mass/Vol] 1.04 mg/dL Normal 0.72-1.25 [facility] Comment on above: Performed By: #### L AB15 ####Heating And Air Conditioning Mechanic: JAZLYN JIMENEZ ([phone])[facility] [address] GLOMERULAR FILTRATION RATE ML/MIN/1.73 SQ M.PREDICTED 86.9 mL/min/1.73m*2 Normal >60.0 [facility] Comment on above: Result Comment: Calc ulation based on the Chronic Kidney Disease Epidemiology Collaboration (CKD-EPI) equation refit without adjustment for race Performed By: #### L AB15 ####Heating And Air Conditioning Mechanic: JAZLYN JIMENEZ ([id number])[address] Glucose [Mass/Vol] 97 mg/dL Normal 74-100 [facility] Comment on above: Performed By: #### L AB15 ####Heating And Air Conditioning Mechanic: JAZLYN JIMENEZ ([id number])[address] Potassium [Moles/Vol] 3.7 mmol/L Normal 3.5-5.1 [facility] Comment on above: Result Comment: [facility] potassium values may be up to 0.5 mmol/L lower than serum values. Performed By: #### L AB15 ####Heating And Air Conditioning Mechanic: JAZLYN JIMENEZ ([id number])[address] Sodium [Moles/Vol] 139 mmol/L Normal 136-145 [facility] Comment on above: Performed By: #### L AB15 ####Heating And Air Conditioning Mechanic: JAZLYN JIMENEZ ([id number])[address] Urea nitrogen [Mass/Vol] 7 mg/dL Low 9-23 [facility] Comment on above: Performed By: #### L AB15 ####Heating And Air Conditioning Mechanic: JAZLYN JIMENEZ ([phone])[address] Basic metabolic 1998 panelOr dered By: Eboni Camacho on 12-24-2024 Anion gap [Moles/Vol] 7 mmol/L 3 - 13 mmol/L [facility] Calcium [Mass/Vol] 10.3 mg/dL High 8.4 - 10. 2 mg/dL [facility] Chloride [Moles/Vol] 108 mmol/L High 98 - 10 7 mmol/L [facility] CO2 [Moles/Vol] 24 mmol/L 22 - 29 mmol/L [facility] Creatinine [Mass/Vol] 1.04 mg/dL 0.72 - 1.25 mg/dL [facility] GFR/1.73 sq M.predicted (S/P/Bld) [Vol rate/Area] 86.9 mL/min - PINF [facility] Comment on above: Calculation based on the Chronic Kidney Disease Epidemiology Collaboration (CKD-EPI) equation refit without adjustment for race Glucose [Mass/Vol] 97 mg/dL 74 - 100 mg/dL [facility] Interpretation and review of laboratory results Abnormal [facility] Potassium [Moles/Vol] 3.7 mmol/L 3.5 - 5.1 mmol/L [facility] Comment on above: Plasma potassium jeri ues may be up to 0.5 mmol/L lower than serum values. Sodium [Moles/Vol] 139 mmol/L 136 - 145 mmol/L [facility] Urea nitrogen [Mass/Vol] 7 mg/dL Low 9 - 23 mg/d L [facility] CBC W Auto Differential pane l (Bld)on 12-24-2024 Basophils (Bld) [#/Vol] 0.1 10*3/uL 0.0 - 0.2 10*3/uL [facility] Basophils/100 WBC (Bld) 0.5 % 0.0 - 2.0 % [facility] Eosinophils (Bld) [#/Vol] 0.8 10*3/uL High 0.0 - 0.5 10*3/uL [facility] Eosinophils/100 WBC (Bld) 5.7 % 0.0 - 6.0 % [facility] Erythrocyte distribution width (RBC) [Ratio] 17.5 % High 11.5 - 15.0 % [facility] Hematocrit (Bld) [Volume fraction] 23 % Low 40.0 - 52.0 % [facility] Hemoglobin (Bld) [Mass/Vol] 7.1 g/dL Low 13.0 - 18.0 g/dL [facility] Immature granulocytes (Bld) [#/Vol] 0.1 10*3/uL High NINF - 0.1 10*3/uL [facility] Immature granulocytes/100 WBC (Bld) 0.4 % 0.0 - 2.0 % [facility] Interpretation and review of laboratory results Abnormal [facility] Lymphocytes (Bld) [#/Vol] 1.5 10*3/uL 1.0 - 4.3 10*3/uL [facility] Lymphocytes/100 WBC (Bld) 9.9 % Low 15.0 - 45.0 % [facility] MCH (RBC) [Entitic mass] 24.6 pg Low 26. 0 - 34.0 pg [facility] MCHC (RBC) [Mass/Vol] 30.9 % 30.5 - 36.0 % [facility] MCV (RBC) [Entitic vol] 79.6 fL 77.0 - 99.0 fL [facility] Monocytes (Bld) [#/Vol] 1.4 10*3/uL High 0.0 - 0.9 10*3/uL [facility] Monocytes/100 WBC (Bld) 9.4 % 5.0 - 13.0 % [facility] Neutrophils (Bld) [#/Vol] 11 10*3/uL High 1.8 - 7.5 10*3/uL [facility] Neutrophils/100 WBC (Bld) 74.1 % 38.0 - 82.0 % [facility] Nucleated RBC/100 WBC (Bld) [Ratio] 0 % [facility] Platelet mean volume (Bld) [Entitic vol] 8.8 fL Low 9.0 - 12.7 fL [facility] Platelets (Bld) [#/Vol] 577 10*3/uL High 140 - 440 10*3/uL [facility] RBC (Bld) [#/Vol] 2.89 10*6/uL Low 4.40 - 5.9 0 10*6/uL [facility] WBC (Bld) [#/Vol] 14.8 10*3/uL High 3.6 - 10.7 10*3/uL [facility] CBC WITH AUTO DIFFERENTIALon 12-24-2024 Basophils (Bld) [#/Vol] 0.1 10*3/uL Normal 0.0-0.2 [facility] Comment on above: Performed By: #### L [id number] ####Heating And Air Conditioning Mechanic: JAZLYN JIMENEZ ([phone])[facility])[address] [place] [address] Basophils/100 WBC (Bld) 0.5 % Normal 0.0-2.0 S [facility] Comment on above: Performed By: #### L [id number] ####Heating And Air Conditioning Mechanic: JAZLYN JIMENEZ ([id number])[facility])[address] [place] [address] Eosinophils (Bld) [#/Vol] 0.8 10*3/uL High 0.0-0.5 [facility] Comment on above: Performed By: #### L [id number] ####Heating And Air Conditioning Mechanic: JALZYN JIMENEZ ([phone])[facility])[address] [place] [address] Eosinophils/100 WBC (Bld) 5.7 % Normal 0.0-6.0 [facility] Comment on above: Performed By: #### L [id number] ####Heating And Air Conditioning Mechanic: JAZLYN JIMENEZ ([id number])[facility])[address] [place] [address] Erythrocyte distribution width (RBC) [Ratio] 17.5 % High 11.5-15.0 [facility] Comment on above: Performed By: #### L [id number] ####Heating And Air Conditioning Mechanic: JAZLYN JIMENEZ ([id number])[address] Hematocrit (Bld) [Volume fraction] 23.0 % Low 40.0-52.0 [facility] Comment on above: Performed By: #### L [id number] ####Heating And Air Conditioning Mechanic: JAZLYN JIMENEZ ([phone])[facility])[address] [place] [address] Hemoglobin (Bld) [Mass/Vol] 7.1 g/dL Low 13.0-18.0 [facility] Comment on above: Performed By: #### L [id number] ####Heating And Air Conditioning Mechanic: JAZLYN JIMENEZ ([id number])[facility])[address] [place] [address] IMMATURE GRANS % 0.4 % Normal 0.0-2.0 [facility] Comment on above: Performed By: #### L [id number] ####Heating And Air Conditioning Mechanic: JAZLYN JIMENEZ ([phone])[facility])[address] [place] [address] IMMATURE GRANS ABSOLUTE 0.1 10*3/uL High <0.1 [facility] Comment on above: Performed By: #### L [id number] ####Heating And Air Conditioning Mechanic: JAZLYN JIMENEZ ([id number])[facility])[address] [place] [address] Lymphocytes (Bld) [#/Vol] 1.5 10*3/uL Normal 1.0-4.3 [facility] Comment on above: Performed By: #### L [id number] ####Heating And Air Conditioning Mechanic: JAZLYN JIMENEZ ([id number])[address] Lymphocytes/100 WBC (Bld) 9.9 % Low 15.0-45.0 [facility] Comment on above: Performed By: #### L [id number] ####Heating And Air Conditioning Mechanic: JAZLYN JIMENEZ ([id number])[address] MCH (RBC) [Entitic mass] 24.6 pg Low 26.0-34.0 [facility] Comment on above: Performed By: #### L [id number] ####Heating And Air Conditioning Mechanic: JAZLYN JIMENEZ ([id number])[address] MCHC 30.9 % Normal 30.5-36.0 [facility] Comment on above: Performed By: #### L [id number] ####Heating And Air Conditioning Mechanic: JAZLYN JIMENEZ ([id number])[address] MCV (RBC) [Entitic vol] 79.6 fL Normal 77.0-99.0 S [facility] Comment on above: Performed By: #### L [id number] ####Heating And Air Conditioning Mechanic: JAZLYN JIMENEZ ([id number])[facility] ([facility])[address] [place] [address] Monocytes (Bld) [#/Vol] 1.4 10*3/uL High 0.0-0.9 [facility] Comment on above: Performed By: #### L [id number] ####Heating And Air Conditioning Mechanic: JAZLYN JIMENEZ ([id number])[facility] ([facility])[address] [place] [address] Monocytes/100 WBC (Bld) 9.4 % Normal 5.0-13.0 [facility] Comment on above: Performed By: #### L [id number] ####Heating And Air Conditioning Mechanic: JAZLYN JIMENEZ ([id number])[facility] ([facility])[address] [place] [address] NEUTROPHILS ABSOLUTE 11.0 10*3/uL High 1.8-7.5 [facility] Comment on above: Performed By: #### L [id number] ####Heating And Air Conditioning Mechanic: JAZLYN JIMENEZ ([id number])[facility] ([facility])[address] [place] [address] Neutrophils/100 WBC (Bld) 74.1 % Normal 38.0-82.0 [facility] Comment on above: Performed By: #### L [id number] ####Heating And Air Conditioning Mechanic: JAZLYN JIMENEZ ([id number])[facility] ([facility])[address] [place] [address] NRBC 0.0 /100 WBCs Normal 0.0-2.0 [facility] Comment on above: Performed By: #### L [id number] ####Heating And Air Conditioning Mechanic: JAZLYN JIMENEZ ([id number])[facility] ([facility])[address] [place] [address] Platelet mean volume (Bld) [Entitic vol] 8.8 fL Low 9.0-12.7 [facility] Comment on above: Performed By: #### L [id number] ####Heating And Air Conditioning Mechanic: JAZLYN JIMENEZ ([id number])[facility])[address] [place] [address] Platelets (Bld) [#/Vol] 577 10*3/uL High 140-440 [facility] Comment on above: Performed By: #### L [id number] ####Heating And Air Conditioning Mechanic: JAZLYN JIMENEZ ([phone])[facility])[address] [place] [address] RBC (Bld) [#/Vol] 2.89 10*6/uL Low 4.40-5.90 [facility] Comment on above: Performed By: #### L [id number] ####Heating And Air Conditioning Mechanic: JAZLYN JIMENEZ ([phone])[facility])[address] [place] [address] WBC (Bld) [#/Vol] 14.8 10*3/uL High 3.6-10.7 [facility] Comment on above: Performed By: #### L [id number] ####Heating And Air Conditioning Mechanic: JAZLYN JIEMNEZ ([phone])[facility])[address] [place] [address] Consulton 12-24-2024 Consult [facility] Wound Care CONSULT Note Kevan [...] BC taken Received zosyn, vancomycin and fluids. [facility] accepted him but waiting on bed until later this afternoon. Pt states he was dropped off here from [facility] as it was the closest hospital. [...] respiratory distress, no cyanosis Left hip/post thigh: [id number]. Wound beds with pink tissue and slough. [...] to follow Recommend to follow up at [facility] Outpatient wound care center after hospital discharge. [...] my own independent evaluation of this patient. [facility] Nursing Noteon 12-24-2024 Nursing Note See new oxy 5 mg one time dose order Normal [facility] Nursing Note Attending secure chatted due to patient asking for PRN pain meds with soft BP's. Awaiting answer Normal [facility] Nursing Note Called and this nurse gave report to Lori RN for patient. P/U time still 1230. Patient updated. [facility] Nursing Note Call received from . Patient has bed waiting at [facility] room 501. Nurse to nurse report number [phone]. Social work to arrange transportation in AM. Patient notified [facility] 30on 12-23-2024 30 Problem: Knowledge Deficit Goal: [...] monitored and maintained or improved Outcome: Progressing [facility] Consulton 12-23-2024 Consult Attestation signed by Noah Stewart DO at 12/23/2024 7:11 PM I have personally performed a [id number] diagnostic evaluation on this patient on date of service 12/23/24. History, labs, imaging studies, and electronic medical record have been reviewed by me. This note documented by the []Critical Care Fellow [x]housekeeper/custodian/laundry worker []BRITTNEY reflects my history, exam, and medical [...] hip and hidradenitis suppurativa who presented to [facility] 12/[address] [facility] for increased drainage and malodor of L hip wound. He is awaiting transfer to [facility]. Of note, patient recently hospitalized at 12/07 - 12/17 [address] [facility] on Augmentin through 01/12. He had a [...] Resource Strain: Medium Risk (12/07/2024) Received from [facility] Overall Financial Resource Strain (CARDIA) Difficulty of Paying Living Expenses: Somewhat hard Food Insecurity: No Food Insecurity (12/07/2024) Received from [facility] Hunger Vital Sign Worried About Running Out of Food in the Last Year: Never true Ran Out of Food in the Last Year: Never true Recent Concern: Food Insecurity - Food Insecurity Present (10/11/2024) Received from [facility] Hunger Vital Sign Worried About Running Out of Food in the Last Year: Sometimes true Ran Out of Food in the Last Year: Sometimes true Transportation Needs: No Transportation Needs (12/07/2024) Received from [facility] PRAPARE - Transportation Lack of Transportation (Medical): No Lack of (more content not included)... Normal [facility] ED Nursing Noteon 12-23-2024 ED Nursing Note RN informed patient admitting team of patient b/p . Pt on the monitor. Pt declined feeling dizzy or nauseous. Pt want pants, RN is looking for pants [facility] ED Nursing Note Pt moved into inpatient bed. Pt on the monitor. [facility] ED Nursing Note Report given to [place] [facility] ED Nursing Note Received report from [place] [facility] ED Nursing Note Levo drip turned off. BP 102/64. [facility] Progress Noteon 12-23-2024 Progress Note Pharmacy Managed [...] creatinine, and vancomycin levels interfaced automatically to [place] and data has been analyzed and interpreted. [...] PharmD Clinical Pharmacist Available via Secure Chat [facility] BLOOD CULTUREon 12-22-2024 Bacteria identified Cx Nom (Bld) BLOOD CULTURE Reference No growth at 5 days ORDER COMMENTS: Blood Collection Site: Right Arm [ S = SUSCEPTIBLE R = RESISTANT I = INTERMEDIATE S-DD = Susceptible-dose dependent NS = Non-susceptible NO = No Interpretation ] [facility] Comment on above: Performed By: #### L [id number], [id number] #### Heating And Air Conditioning Mechanic: JAZLYN JIMENEZ ([id number]) [address] Bacteria identified Cx Nom (Bld) BLOOD CULTURE Reference No growth at 5 days ORDER COMMENTS: Blood Collection Site: Left Arm [ S = SUSCEPTIBLE R = RESISTANT I = INTERMEDIATE S-DD = Susceptible-dose dependent NS = Non-susceptible NO = No Interpretation ] [facility] Comment on above: Performed By: #### L [id number], [id number] #### Heating And Air Conditioning Mechanic: JAZLYN JIMENEZ ([id number]) [address] CBC W Auto Differential pane l (Bld)Ordered By: Flores Rausch on 12-22-2024 Erythrocyte distribution width (RBC) [Ratio] 17.3 % High 11.5 - 15.0 % [facility] Hematocrit (Bld) [Volume fraction] 26.8 % Low 40.0 - 52.0 % [facility] Hemoglobin (Bld) [Mass/Vol] 8.4 g/dL Low 13.0 - 18.0 g/dL [facility] Interpretation and review of laboratory results Abnormal [facility] MCH (RBC) [Entitic mass] 25.2 pg Low 26. 0 - 34.0 pg [facility] MCHC (RBC) [Mass/Vol] 31.3 % 30.5 - 36.0 % [facility] MCV (RBC) [Entitic vol] 80.5 fL 77.0 - 99.0 fL [facility] Platelet mean volume (Bld) [Entitic vol] 8.9 fL Low 9.0 - 12.7 fL [facility] Platelets (Bld) [#/Vol] 698 10*3/uL High 140 - 440 10*3/uL [facility] RBC (Bld) [#/Vol] 3.33 10*6/uL Low 4.40 - 5.9 0 10*6/uL [facility] WBC (Bld) [#/Vol] 19.4 10*3/uL High 3.6 - 10.7 10*3/uL [facility] CBC WITH AUTO DIFFERENTIALon 12-22-2024 Erythrocyte distribution width (RBC) [Ratio] 17.3 % High 11.5-15.0 [facility] Comment on above: Performed By: #### Kamila [id number], [id number] #### Heating And Air Conditioning Mechanic: JAZLYN JIMENEZ ([id number]) [facility] ([facility]) [address] [place] [address] Hematocrit (Bld) [Volume fraction] 26.8 % Low 40.0-52.0 [facility] Comment on above: Performed By: #### Kamila [id number], [id number] #### Heating And Air Conditioning Mechanic: JAZLYN JIMENEZ ([id number]) [facility] ([facility]) [address] [place] [address] Hemoglobin (Bld) [Mass/Vol] 8.4 g/dL Low 13.0-18.0 [facility] Comment on above: Performed By: #### Kamila [id number], [id number] #### Heating And Air Conditioning Mechanic: JAZLYN JIMENEZ ([id number]) [facility] ([facility]) [address] [place] [address] MCH (RBC) [Entitic mass] 25.2 pg Low 26.0-34.0 [facility] Comment on above: Performed By: #### L [id number], [id number] #### Heating And Air Conditioning Mechanic: JAZLYN JIMENEZ ([id number]) [facility] ([facility]) [address] [place] [address] MCHC 31.3 % Normal 30.5-36.0 [facility] Comment on above: Performed By: #### L [id number], [id number] #### Heating And Air Conditioning Mechanic: JAZLYN JIMENEZ ([id number]) [facility] ([facility]) [address] [place] [address] MCV (RBC) [Entitic vol] 80.5 fL Normal 77.0-99.0 S [facility] Comment on above: Performed By: #### L [id number], [id number] #### Heating And Air Conditioning Mechanic: JAZLYN JIMENEZ ([id number]) [facility] ([facility]) [address] [place] [address] Platelet mean volume (Bld) [Entitic vol] 8.9 fL Low 9.0-12.7 [facility] Comment on above: Performed By: #### Kamila [id number], [id number] #### Heating And Air Conditioning Mechanic: JAZLYN JIMENEZ ([id number]) [facility] ([facility]) [address] [place] [address] Platelets (Bld) [#/Vol] 698 10*3/uL High 140-440 [facility] Comment on above: Performed By: #### L [id number], [id number] #### Heating And Air Conditioning Mechanic: JAZLYN JIMENEZ ([id number]) [facility] ([facility]) [address] [place] [address] RBC (Bld) [#/Vol] 3.33 10*6/uL Low 4.40-5.90 [facility] Comment on above: Performed By: #### L [id number], [id number] #### Heating And Air Conditioning Mechanic: JAZLYN JIMENEZ ([id number]) [facility]) [address] [place] [address] WBC (Bld) [#/Vol] 19.4 10*3/uL High 3.6-10.7 [facility] Comment on above: Performed By: #### L [id number], [id number] #### Heating And Air Conditioning Mechanic: JAZLYN JIMENEZ ([id number]) [facility] ([facility]) [address] [place] [address] COMPLETE URINALYSISon 2024 BILIRUBIN, TOTAL PRESENCE IN URINE Negative Normal Negative [facility] Comment on above: Performed By: #### L [id number] ####Heating And Air Conditioning Mechanic: JAZLYN JIMENEZ ([id number])[facility] ([facility])[address] [place] [address] Clarity (U) Clear Normal Clear [facility] Comment on above: Performed By: #### L [id number] ####Heating And Air Conditioning Mechanic: JAZLYN JIMENEZ ([phone])[facility])[address] [place] [address] Color (U) Light Yellow Normal Lt. Yellow [facility] Comment on above: Performed By: #### L [id number] ####Heating And Air Conditioning Mechanic: JAZLYN JIMENEZ ([id number])[facility] ([facility])[address] [place] [address] GLUCOSE (MG/DL) IN URINE Normal Normal Normal (<70 ) [facility] [facility] Comment on above: Performed By: #### L [id number] ####Heating And Air Conditioning Mechanic: JAZLYN JIMENEZ ([phone])[facility])[address] [place] [address] HEMOGLOBIN PRESENCE IN URINE Negative Normal Negative [facility] Comment on above: Performed By: #### L [id number] ####Heating And Air Conditioning Mechanic: JAZLYN JIMENEZ ([phone])[facility] ([facility])[address] [place] [address] Ketones Ql (U) Negative Normal Negative [facility] Comment on above: Performed By: #### L [id number] ####Heating And Air Conditioning Mechanic: JAZLYN JIMENEZ ([phone])[facility] ([facility])[address] [place] [address] LEUKOCYTE ESTERASE PRESENCE IN URINE BY TEST STRIP Negative Normal Negative [facility] Comment on above: Performed By: #### L [id number] ####Heating And Air Conditioning Mechanic: JAZLYN JIMENEZ ([phone])[facility] ([facility])[address] [place] [address] NITRITE PRESENCE IN URINE Negative Normal Negative [facility] Comment on above: Performed By: #### L [id number] ####Heating And Air Conditioning Mechanic: JAZLYN JIMENEZ ([phone])[facility] ([facility])[address] [place] [address] pH (U) 6.0 [pH] Normal 5.0-8.0 [facility] Comment on above: Performed By: #### L [id number] ####Heating And Air Conditioning Mechanic: JAZLYN JIMENEZ ([phone])[facility] ([facility])[address] [place] [address] Protein (U) [Mass/Vol] Negative Normal Negative [facility] Comment on above: Performed By: #### L [id number] ####Heating And Air Conditioning Mechanic: JAZLYN JIMENEZ ([phone])[facility] ([facility])[address] [place] [address] Specific gravity (U) [Rel density] 1.009 Normal 1.005-1.030 [facility] Comment on above: Performed By: #### L [id number] ####Heating And Air Conditioning Mechanic: JAZLYN JIMENEZ ([phone])[facility] ([facility])[address] [place] [address] UROBILINOGEN (MG/DL) IN URINE Normal Normal Normal (0-1) [facility] Comment on above: Performed By: #### L [id number] ####Heating And Air Conditioning Mechanic: JAZLYN JIMENEZ ([phone])[facility] ([facility])[address] [place] [address] COMPREHENSIVE METABOLIC PANE Yuriy 12-22-2024 Albumin [Mass/Vol] 2.6 g/dL Low 3.5-5.0 [facility] Comment on above: Performed By: #### L [id number], [id number] #### Heating And Air Conditioning Mechanic: JAZLYN JIMENEZ ([phone]) [facility] ([facility]) [address] [place] [address] [place] ALP [Catalytic activity/Vol] 65 U/L Normal 40-150 [facility] Comment on above: Performed By: #### L [id number], [id number] #### Heating And Air Conditioning Mechanic: JAZLYN JIMENEZ ([id number]) [facility] ([facility]) [address] [place] [address] ALT [Catalytic activity/Vol] 6 U/L Normal <40 [facility] Comment on above: Performed By: #### L [id number], [id number] #### Heating And Air Conditioning Mechanic: JAZLYN JIMENEZ ([id number]) [facility] ([facility]) [address] [place] [address] Anion gap [Moles/Vol] 10 mmol/L Normal 3-13 [facility] Comment on above: Performed By: #### L [id number], [id number] #### Heating And Air Conditioning Mechanic: JAZLYN JIMENEZ ([phone]) [facility] ([facility]) [address] [place] [address] AST [Catalytic activity/Vol] 16 U/L Normal <34 [facility] Comment on above: Performed By: #### L [id number], [id number] #### Heating And Air Conditioning Mechanic: JAZLYN JIMENEZ ([id number]) [facility] ([facility]) [address] [place] [address] Bilirubin [Mass/Vol] 0.4 mg/dL Normal <1.2 [facility] Comment on above: Performed By: #### L [id number], [id number] #### Heating And Air Conditioning Mechanic: JAZLYN JIMENEZ ([id number]) [facility] ([facility]) [address] [place] [address] Calcium [Mass/Vol] 11.2 mg/dL High 8.4-10.2 [facility] Comment on above: Performed By: #### L [id number], [id number] #### Heating And Air Conditioning Mechanic: JAZLYN JIMENEZ ([id number]) [facility]) [address] [place] [address] Chloride [Moles/Vol] 98 mmol/L Normal 98-107 [facility] Comment on above: Performed By: #### L [id number], [id number] #### Heating And Air Conditioning Mechanic: JAZLYN JIMENEZ ([id number]) [facility] ([facility]) [address] [place] [address] CO2 [Moles/Vol] 24 mmol/L Normal 22-29 [facility] Comment on above: Performed By: #### L [id number], [id number] #### Heating And Air Conditioning Mechanic: JAZLYN JIMENEZ ([id number]) [facility] ([facility]) [address] [place] [address] Creatinine [Mass/Vol] 1.16 mg/dL Normal 0.72-1.25 [facility] Comment on above: Performed By: #### Kamila [id number], [id number] #### Heating And Air Conditioning Mechanic: JAZLYN JIMENEZ ([phone]) [facility]) [address] [place] [address] [place] GLOMERULAR FILTRATION RATE ML/MIN/1.73 SQ M.PREDICTED 76.3 mL/min/1.73m*2 Normal >60.0 [facility] Comment on above: Result Comment: Calc ulation based on the Chronic Kidney Disease Epidemiology Collaboration (CKD-EPI) equation refit without adjustment for race Performed By: #### Kamila KELSEY, [id number] #### Heating And Air Conditioning Mechanic: JAZLYN JIMENEZ ([id number]) [facility] ([facility]) [address] [place] [address] [place] Glucose [Mass/Vol] 108 mg/dL High 74-100 [facility] Comment on above: Performed By: #### Kamila [id number], [id number] #### Heating And Air Conditioning Mechanic: JAZLYN JIMENEZ ([id number]) [facility] ([facility]) [address] [place] [address] [place] Potassium [Moles/Vol] 4.0 mmol/L Normal 3.5-5.1 [facility] Comment on above: Result Comment: [facility] potassium values may be up to 0.5 mmol/L lower than serum values. Performed By: #### L [id number], [id number] #### Heating And Air Conditioning Mechanic: JAZLYN JIMENEZ ([id number]) [facility] ([facility] Protein [Mass/Vol] 7.2 g/dL Normal 6.4-8.3 [facility] Comment on above: Performed By: #### L [id number], [id number] #### Heating And Air Conditioning Mechanic: JAZLYN JIMENEZ ([id number]) [facility]) [address] [place] [address] Sodium [Moles/Vol] 132 mmol/L Low 136-145 [facility] Comment on above: Performed By: #### L [id number], [id number] #### Heating And Air Conditioning Mechanic: JAZLYN JIMENEZ ([id number]) [facility]) [address] [place] [address] Urea nitrogen [Mass/Vol] 11 mg/dL Normal 9-23 [facility] Comment on above: Performed By: #### L [id number], [id number] #### Heating And Air Conditioning Mechanic: JAZLYN JIMENEZ ([phone]) [facility]) [address] [place] [address] CULTURE ANAEROBICon 12-23-19 25 CULTURE ANAEROBIC ANAEROBIC CULTURE (A) Reference BACTEROIDES FRAGILIS GROUP Moderate Bacteroides fragilis group (A) FUSOBACTERIUM GONIDIAFORMANS Fusobacterium gonidiaformans (A) This is an edited result. Previous organism was Anaerobic Gram-negative cocci on 12/24/2024 at 1358 EDT. [ S = SUSCEPTIBLE R = RESISTANT I = INTERMEDIATE S-DD = Susceptible-dose dependent NS = Non-susceptible NO = No Interpretation ] Normal [facility] Comment on above: Performed By: #### L [id number], [id number] #### Heating And Air Conditioning Mechanic: JAZLYN JIMENEZ ([phone]) [facility]) [address] [place] [address] CULTURE, AEROBIC BACTERIA WI TH GRAM STAINon [...] Non-susceptible NO = No Interpretation ] Normal [facility] Comment on above: Performed By: #### L [id number], [id number] #### Heating And Air Conditioning Mechanic: JAZLYN JIMENEZ ([id number]) [facility] ([facility]) [address] [place] [address] Comprehensive metabolic 1998 panelon 12-22-2024 Albumin [Mass/Vol] 2.6 g/dL Low 3.5 - 5.0 g/dL [facility] ALP [Catalytic activity/Vol] 65 U/L 40 - 150 U/L [facility] ALT [Catalytic activity/Vol] 6 U/L NINF - 40 U/L [facility] Anion gap [Moles/Vol] 10 mmol/L 3 - 13 mmol/L [facility] AST [Catalytic activity/Vol] 16 U/L NINF - 34 U/L [facility] Bilirubin [Mass/Vol] 0.4 mg/dL NINF - 1.2 mg/dL [facility] Calcium [Mass/Vol] 11.2 mg/dL High 8.4 - 10. 2 mg/dL [facility] Chloride [Moles/Vol] 98 mmol/L 98 - 10 7 mmol/L [facility] CO2 [Moles/Vol] 24 mmol/L 22 - 29 mmol/L [facility] Creatinine [Mass/Vol] 1.16 mg/dL 0.72 - 1.25 mg/dL [facility] GFR/1.73 sq M.predicted (S/P/Bld) [Vol rate/Area] 76.3 mL/min - PINF [facility] Comment on above: Calculation based on the Chronic Kidney Disease Epidemiology Collaboration (CKD-EPI) equation refit without adjustment for race Glucose [Mass/Vol] 108 mg/dL High 74 - 100 mg/dL [facility] Interpretation and review of laboratory results Abnormal [facility] Potassium [Moles/Vol] 4 mmol/L 3.5 - 5.1 mmol/L [facility] Comment on above: Plasma potassium jeri ues may be up to 0.5 mmol/L lower than serum values. Protein [Mass/Vol] 7.2 g/dL 6.4 - 8.3 g/dL [facility] Sodium [Moles/Vol] 132 mmol/L Low 136 - 145 mmol/L [facility] Urea nitrogen [Mass/Vol] 11 mg/dL 9 - 23 mg/d L [facility] ED Nursing Noteon 12-22-2024 ED Nursing Note Levo titrated to 2mcg/min. Patient BP remains stable. Normal [facility] ED Nursing Note Levo titrated to 4mcg/min. BP remains stable. Patient asymptomatic. Normal [facility] ED Nursing Note Levo titrated to 6mcg/min. BP remains stable. Patient asymptomatic. Normal [facility] ED Nursing Note Report given to Parish [place] Normal [facility] ED Nursing Note Dressing change completed with ABD pads, 2x2s and tape. Pt repostioned and saturated chucks removed Normal [facility] ED Nursing Note Messaged pharmacy regarding missing vancomycin dose Normal [facility] ED Nursing Note Report given to Mary [place] for lunch coverage Normal [facility] ED Provider Noteon ED Provider Note HPI Chief Complaint Patient presents with ? Wound Infection Pt arrives by life [facility] [place], [facility] pt has had wound infection [...] his facility about a week ago from [facility] as he has SCC treating with cemiplimab. [...] typical urinary output. History provided by: Patient home aide used: No INFORMED PHOTO CONSENT: The patient has given verbal consent to have photos taken of left hip and inserted into their provider note as a part of their permanent medical record for purposes of documentation, treatment management, and/or medical review. All images taken were transmitted and stored on a secure [employer] located within a Media Folder Tab by a registered [employer] Mobile Application Device. See "Media" tab in [employer] or photo as below. Kofi Coma Scale Score: 15 Patient History No [...] HENT: Head: Normocephalic and atraumatic. Mouth/Throat: Lips: Kirwin. Mouth: Mucous membranes are moist. Cardiovascular: Rate [...] identified. Report Dictated on Electronically Signed By: Jmaison Covarrubias MD Electronically Signed Date/Time: 12/22/2024 1:33 [...] Navas MD (more content not included)... Normal [facility] ED Provider Note Emergency Department Encounter [facility] EMERGENCY DEPT Patient: Kevan La : 1975 [...] toward the left greater trochanter. He is chcf had reported that he is currently on chemotherapy. He was hospitalized recently due to concerns of an abscess and had this managed by general surgery at [facility]. He receives most of his care for hidradenitis suppurativa at and is requesting to be transferred given that they are familiar with his care. Believe this is appropriate due to patient will require further evaluation by the surgery and primary team taking care of his chronic wound. We will continue IV antibiotics and IV pressors and transfer patient to [facility] for management. Diagnostics interpreted by me: I personally discussed the patient's management with other clinicians: Critical Care note: This patient was unstable and required constant supervision by me for 35 minutes during their visit. The patient's condition requiring intervention included: sepsis evaluation, multiple reassessments, vasopressors. This critical care time did not include time for procedures or time spent by the physicians assistant banquet manager if they were caring for this patient. [...] dictating provider for clarification.) Levi Mack, DO [employer] Levi Mack, DO 12/22/24 1730 Levi Mack, DO 12/22/[address] [facility] ED Provider Note I received this patient in signout who has been awaiting transfer to [facility] for septic shock in the setting of a left buttock wound requiring Levophed. I reviewed his labs and his medications and unfortunately has not been dosed with Zosyn since 1 PM. I reordered that and also timed for every 6 hours. He has been boarding in our emergency department for 16 hours now. We reached out to [facility] and they stated that there would not [...] fluid responsive. I reached back out to [facility] to get him accepted to a regular nursing floor. I spoke with Dr Benitez at [facility] who accepted the patient to the regular nursing floor but they will still not have beds until most likely later this afternoon so will plan to admit him here medically so that the can be under the supervision and care of a hospitalist. Admitted in stable condition. Mary Calvert MD 12/23/[address] [facility] ED Provider Note Pt signed out to me by Dr. Mack. Pt is awaiting transfer to for septic shock in setting of left buttock wound. Mani Dc, 12/23/[address] [facility] LACTIC ACID WITH REFLEXon Lactate [Moles/Vol] 1.7 mmol/L Normal 0.5-2.2 [facility] Comment on above: Performed By: #### L [id number] ####Heating And Air Conditioning Mechanic: JAZLYN JIMENEZ ([phone])[facility] ([address] Laboratory - Chemistry and C hemistry - challengeon 12-22-2024 Lactate [Moles/Vol] 1.7 mmol/L 0.5 - 2. 2 mmol/L [facility] Laboratory - Hematology and Cell countson 12-22-2024 Band form neutrophils (Bld) [#/Vol] 0.4 10*3/uL High NINF - 0.0 10*3/uL [facility] Band form neutrophils/100 WBC (Bld) 2 % High NINF - 0 % [facility] Basophils (Bld) [#/Vol] 0.2 10*3/uL 0.0 - 0.2 10*3/uL [facility] Basophils/100 WBC (Bld) 1 % 0 - 2 % [facility] Lymphocytes (Bld) [#/Vol] 0.8 10*3/uL Low 1.0 - 4.3 10*3/uL [facility] Lymphocytes/100 WBC (Bld) 4 % Low 15 - 45 % [facility] Monocytes (Bld) [#/Vol] 1 10*3/uL High 0.0 - 0.9 10*3/uL [facility] Monocytes/100 WBC (Bld) 5 % 5 - 13 % [facility] Neutrophils (Bld) [#/Vol] 17.5 10*3/uL High 1.8 - 7.5 10*3/uL [facility] Ovalocytes LM Ql (Bld) Moderate Abnormal (none) [facility] Poikilocytosis LM Ql (Bld) Moderate Abnormal (none) [facility] RBC morphology finding Nom (Bld) abnormal [facility] Segmented neutrophils/100 WBC (Bld) 88 % High 38 - 82 % [facility] Stomatocytes LM Ql (Bld) Moderate Abnormal (none) [facility] MANUAL DIFFERENTIAL (CELLAVI CHRIS)on 12-22-2024 BAND NEUTROPHILS TOTAL PER COUNTED LEUKOCYTES BY MANUAL COUNT 2 Normal [facility] Comment on above: Performed By: #### L [id number], [id number] #### Heating And Air Conditioning Mechanic: JAZLYN JIMENEZ ([id number]) [facility]) [address] [place] [address] [place] BANDS (10*3/UL) IN BLOOD-CELLAVISION 0.4 10*3/uL High <=0.0 [facility] Comment on above: Performed By: #### L [id number], [id number] #### Heating And Air Conditioning Mechanic: JAZLYN JIMENEZ ([phone]) [facility] ([facility]) [address] [place] [address] [place] BASOPHILS (10*3/UL) IN BLOOD-CELLAVISION 0.2 10*3/uL Normal 0.0-0.2 [facility] Comment on above: Performed By: #### L [id number], [id number] #### Heating And Air Conditioning Mechanic: JAZLYN JIMENEZ ([phone]) [facility] ([facility]) [address] [place] [address] [place] BASOPHILS TOTAL PER COUNTED LEUKOCYTES BY MANUAL COUNT 1 Normal [facility] Comment on above: Performed By: #### L [id number], [id number] #### Heating And Air Conditioning Mechanic: JAZLYN JIMENEZ ([phone]) [facility] ([facility]) [address] [place] [address] [place] BASOPHILS/100 LEUKOCYTES IN BLOOD-CELLAVISION 1 % Normal 0-2 [facility] Comment on above: Performed By: #### L [id number], [id number] #### Heating And Air Conditioning Mechanic: JAZLYN JIMENEZ ([id number]) [facility] ([facility]) [address] [place] [address] [place] BLASTS TOTAL PER COUNTED LEUKOCYTES BY MANUAL COUNT Normal [facility] Comment on above: Performed By: #### L [id number], [id number] #### Heating And Air Conditioning Mechanic: JAZLYN JIMENEZ ([phone]) [facility] ([facility]) [address] [place] [address] [place] EOSINOPHILS TOTAL PER COUNTED LEUKOCYTES BY MANUAL COUNT Normal [facility] Comment on above: Performed By: #### L [id number], [id number] #### Heating And Air Conditioning Mechanic: JAZLYN JIMENEZ ([phone]) [facility] ([facility]) [address] [place] [address] [place] LYMPHOCYTES (10*3/UL) IN BLOOD-CELLAVISION 0.8 10*3/uL Low 1.0-4.3 [facility] Comment on above: Performed By: #### L [id number], [id number] #### Heating And Air Conditioning Mechanic: JAZLYN JIMENEZ ([phone]) [facility]) [address] [place] [address] [place] LYMPHOCYTES TOTAL PER COUNTED LEUKOCYTES BY MANUAL COUNT 4 Normal [facility] Comment on above: Performed By: #### L [id number], [id number] #### Heating And Air Conditioning Mechanic: JAZLYN JIMENEZ ([id number]) [facility] ([facility]) [address] [place] [address] LYMPHOCYTES/100 LEUKOCYTES IN BLOOD-CELLAVISION 4 % Low 15-45 [facility] Comment on above: Performed By: #### L [id number], [id number] #### Heating And Air Conditioning Mechanic: JAZLYN JIMENEZ ([id number]) [facility]) [address] [place] [address] [place] METAMYELOCYTES TOTAL PER COUNTED LEUKOCYTES BY MANUAL COUNT Normal [facility] Comment on above: Performed By: #### L [id number], [id number] #### Heating And Air Conditioning Mechanic: JAZLYN JIMENEZ ([id number]) [facility]) [address] [place] [address] [place] MONOCYTES (10*3/UL) IN BLOOD-CELLAVISION 1.0 10*3/uL High 0.0-0.9 [facility] Comment on above: Performed By: #### L [id number], [id number] #### Heating And Air Conditioning Mechanic: JAZLYN JIMENEZ ([id number]) [facility] ([facility]) [address] [place] [address] [place] MONOCYTES TOTAL PER COUNTED LEUKOCYTES BY MANUAL COUNT 5 Normal [facility] Comment on above: Performed By: #### L [id number], [id number] #### Heating And Air Conditioning Mechanic: JAZLYN JIMENEZ ([id number]) [facility] ([facility]) [address] [place] [address] [place] MONOCYTES/100 LEUKOCYTES IN BLOOD-SAM 5 % Normal 5-13 [facility] Comment on above: Performed By: #### L [id number], [id number] #### Heating And Air Conditioning Mechanic: JAZLYN JIMENEZ ([id number]) [facility] ([facility]) [address] [place] [address] [place] MYELOCYTES COUNTED BY MANUAL COUNT Normal [facility] Comment on above: Performed By: #### L [id number], [id number] #### Heating And Air Conditioning Mechanic: JAZLYN JIMENEZ ([id number]) [facility]) [address] [place] [address] [place] NEUTROPHILS BAND FORM/100 LEUKOCYTES IN BLOOD-CELLAVISI 2 % High <=0 [facility] Comment on above: Performed By: #### L [id number], [id number] #### Heating And Air Conditioning Mechanic: JAZLYN JIMENEZ ([id number]) [facility]) [address] [place] [address] [place] NEUTROPHILS TOTAL PER COUNTED LEUKOCYTES BY MANUAL COUNT 89 Normal [facility] Comment on above: Performed By: #### L [id number], [id number] #### Heating And Air Conditioning Mechanic: JAZLYN JIMENEZ ([id number]) [facility]) [address] [place] [address] [place] OVALOCYTES PRESENCE IN BLOOD BY LIGHT MICROSCOPY Moderate Abnormal (none) [facility] Comment on above: Performed By: #### L [id number], [id number] #### Heating And Air Conditioning Mechanic: JAZLYN JIMENEZ ([id number]) [facility]) [address] [place] [address] [place] POIKILOCYTOSIS (PRESENCE) IN BLOOD BY LIGHT MICROSCOPY Moderate Abnormal (none) [facility] Comment on above: Performed By: #### L [id number], [id number] #### Heating And Air Conditioning Mechanic: JAZLYN JIMENEZ ([id number]) [facility]) [address] [place] [address] [place] PROMYELOCYTES TOTAL PER COUNTED LEUKOCYTES BY MANUAL COUNT Normal [facility] Comment on above: Performed By: #### L [id number], [id number] #### Heating And Air Conditioning Mechanic: JAZLYN JIMENEZ ([id number]) [facility] ([facility]) [address] [place] [address] RBC MORPHOLOGY IN BLOOD abnormal Normal [facility] Comment on above: Performed By: #### L [id number], [id number] #### Heating And Air Conditioning Mechanic: JAZLYN JIMENEZ ([phone]) [facility] ([facility]) [address] [place] [address] SEGMENTED NEUTROPHILS (10*3/UL) IN BLOOD-CELLAVISION 17.5 10*3/uL High 1.8-7.5 [facility] Comment on above: Performed By: #### L [id number], [id number] #### Heating And Air Conditioning Mechanic: JAZLYN JIMENEZ ([id number]) [facility] ([facility]) [address] [place] [address] SEGMENTED NEUTROPHILS/100 LEUKOCYTES-CE 88 % High 38-82 [facility] Comment on above: Performed By: #### L [id number], [id number] #### Heating And Air Conditioning Mechanic: JAZLYN JIMENEZ ([id number]) [facility] ([facility]) [address] [place] [address] [place] STOMATOCYTES IN BLOOD BY LIGHT MICROSCOPY Moderate Abnormal (none) [facility] Comment on above: Performed By: #### L [id number], [id number] #### Heating And Air Conditioning Mechanic: JAZLYN JIMENEZ ([id number]) [facility] ([facility]) [address] [place] [address] UNCLASSIFIED CELLS TOTAL PER COUNTED LEUKOCYTES BY MANUAL COUNT Normal [facility] Comment on above: Performed By: #### L [id number], [id number] #### Heating And Air Conditioning Mechanic: JAZLYN JIMENEZ ([id number]) [facility]) [address] [place] [address] VARIANT LYMPHOCYTES TOTAL PER COUNTED LEUKOCYTES BY MANUAL COUNT [facility] Comment on above: Performed By: #### L [id number], [id number] #### Heating And Air Conditioning Mechanic: JAZLYN JIMENEZ ([id number]) [facility] [address] No Panel Informationon 12-22 Atypical Lymphocytes Manual [facility] Bands Manual 2 [facility] Basophils Manual 1 [facility] alth Blasts Manual [facility] Eosinophils Manual [facility] Interpretation and review of laboratory results Abnormal [facility] Lymphocytes Manual 4 [facility] Metamyelocytes Manual [facility] Monocytes Manual 5 [facility] alth Myelocytes Manual [facility] ealth Neutrophils Manual 89 [facility] Promyelocytes Manual [facility] Unclassified Cells, Manual [facility] Interpretation and review of laboratory results Normal [facility] Progress Noteon 12-22-2024 Progress Note Culture reviewed. Awaiting sensitivity results Normal [facility] Urinalysis complete panel (U )on 12-22-2024 Bilirubin Ql (U) Negative Negative mg/dL [facility] Clarity (U) Clear Clear [facility] Color (U) Light Yellow Lt. Yellow [facility] Glucose Ql (U) Normal Normal (<70) mg/dL [facility] Hemoglobin Ql (U) Negative Negative mg/dL [facility] Interpretation and review of laboratory results Normal [facility] Ketones (U) [Mass/Vol] Negative Negat sulema mg/dL [facility] Leukocyte esterase Test strip Ql (U) Negative Negative Gabe/uL [facility] Nitrite Ql (U) Negative Negative [facility] th pH (U) 6.0 [pH] 5.0 - 8.0 pH [facility] Protein (U) [Mass/Vol] Negative Negat sulema mg/dL [facility] Specific gravity (U) [Rel density] 1.009 1.005 - 1.030 [facility] Urobilinogen (U) [Mass/Vol] Normal Normal (0-1) mg/dL [facility] XR Chest Single viewon [...] Electronically Signed Date/Time: 12/22/2024 1:25 PM EDT [facility] Name: KEVAN LA [facility] 1975 [id number] Exam Date/Time: 12/22/2024 13:20 Procedure: XR CHEST 1 VIEW Ordering Provider: LEON NICOLE Reason For Exam: concern for sepsis EXAM TYPE: RADIOLOGIC EXAMINATION, CHEST, SINGLE VIEW FRONTAL (CXR SINGLE VIEW) EXAM DATE AND TIME: 12/22/2024 1:20 PM EDT INDICATION: Concern for sepsis COMPARISON: 09/12/2024 TECHNIQUE: A single portable frontal view of the thorax was obtained and reviewed. Special views: None. [facility] Fidel Navas MD - 12/22/2024 Patient Name: KEVAN LA : 1975 [id number] Exam Date/Time: 12/22/2024 13:20 Procedure: XR CHEST [...] Electronically Signed Date/Time: 12/22/2024 1:25 PM EDT [facility] Radiology Study observation (narrative) [facility] XR Chest Single viewOrdered By: Fidel Mckeonxavierjulisa on 12-22-2024 [employer] Work Phone: XR Hip - left 3 Viewson 1. Irregular soft tissue heterogeneity and subcutaneous emphysema projecting of the left thigh soft tissues. Patient was noted to have an abscess in this region on prior CT. Consider follow-up cross-sectional imaging. 2. No acute osseous abnormality identified. Report Dictated on Electronically Signed By: Jamison Covarrubias MD Electronically Signed Date/Time: 12/22/2024 1:33 PM EDT [facility] Patient Name: KEVAN LA : [...] present involving the left thigh soft tissues. [facility] Jamison Covarrubias MD - 12/22/2024 Patient [...] Electronically Signed Date/Time: 12/22/2024 1:33 PM EDT [facility] (narrative) [facility] XR Hip - left 3 ViewsOrdered By: Jamison Covarrubias on 12-22-2024 [employer] Work Phone: CBC W Auto Differential pane l (Bld)on 12-19-2024 Basophils (Bld) [#/Vol] 0.05 10*3/uL [facility] Basophils/100 WBC (Bld) 0.3 % 0.0 - 2.0 % [facility] Eosinophils (Bld) [#/Vol] 0.4 10*3/uL [facility] Eosinophils/100 WBC (Bld) 2.7 % 0.0 - 6.0 % [facility] Erythrocyte distribution width (RBC) [Ratio] 17.4 % High 11.5 - 14.5 % [facility] Hematocrit (Bld) [Volume fraction] 27.2 % Low 41.0 - 52.0 % [facility] Hemoglobin (Bld) [Mass/Vol] 8.2 g/dL Low 13.5 - 17.5 g/dL [facility] Immature granulocytes (Bld) [#/Vol] 0.07 10*3/uL [facility] Immature granulocytes/100 WBC (Bld) 0.5 % 0.0 - 0.9 % [facility] Interpretation and review of laboratory results Abnormal [facility] Lymphocytes (Bld) [#/Vol] 1.9 10*3/uL [facility] Lymphocytes/100 WBC (Bld) 12.7 % 13.0 - 44.0 % [facility] MCH (RBC) [Entitic mass] 25.7 pg Low 26. 0 - 34.0 pg [facility] MCHC (RBC) [Mass/Vol] 30.1 g/dL Low 32.0 - 36.0 g/dL [facility] MCV (RBC) [Entitic vol] 85 fL 80 - 100 fL [facility] Monocytes (Bld) [#/Vol] 1.38 10*3/uL High [facility] Monocytes/100 WBC (Bld) 9.2 % 2.0 - 10.0 % [facility] Neutrophils (Bld) [#/Vol] 11.2 10*3/uL High [facility] Neutrophils/100 WBC (Bld) 74.6 % 40.0 - 80.0 % [facility] Nucleated RBC/100 WBC (Bld) [Ratio] 0 % [facility] Platelets (Bld) [#/Vol] 699 10*3/uL High [facility] RBC (Bld) [#/Vol] 3.19 10*6/uL [facility] WBC (Bld) [#/Vol] 15 10*3/uL High [facility] Magnesiumon 12-19-2024 Magnesium [Mass/Vol] 2.08 mg/dL 1.60 - 2.40 mg/dL [facility] Magnesium [Mass/Vol]on 12-19 Interpretation and review of laboratory results Normal [facility] No Panel Informationon 12-19 [facility] Renal function 2000 panelon 12-19-2024 Albumin BCP dye [Mass/Vol] 3.1 g/dL Low 3.4 - 5.0 g/dL [facility] Anion gap [Moles/Vol] 11 mmol/L 10 - 2 0 mmol/L [facility] Calcium [Mass/Vol] 10.9 mg/dL High 8.6 - 10. 6 mg/dL [facility] Chloride [Moles/Vol] 99 mmol/L 98 - 10 7 mmol/L [facility] CO2 [Moles/Vol] 31 mmol/L 21 - 32 mmol/L [facility] Creatinine [Mass/Vol] 1.14 mg/dL 0.50 - 1.30 mg/dL [facility] GFR/1.73 sq M.predicted among non-blacks MDRD (S/P/Bld) [Vol rate/Area] 78 mL/min/{1.73_m2} - PINF [facility] Glucose [Mass/Vol] 102 mg/dL High 74 - 99 mg/[facility] Interpretation and review of laboratory results Abnormal [facility] Phosphate [Mass/Vol] 2.7 mg/dL 2.5 - 4 .9 mg/dL [facility] Potassium [Moles/Vol] 4.9 mmol/L 3.5 - 5.3 mmol/L [facility] Sodium [Moles/Vol] 136 mmol/L 136 - 145 mmol/L [facility] Urea nitrogen [Mass/Vol] 13 mg/dL 6 - 23 mg/d L [facility] CBC W Auto Differential pane l (Bld)on 12-18-2024 Basophils (Bld) [#/Vol] 0.07 10*3/uL [facility] Basophils/100 WBC (Bld) 0.5 % 0.0 - 2.0 % [facility] Eosinophils (Bld) [#/Vol] 0.63 10*3/uL [facility] Eosinophils/100 WBC (Bld) 4.8 % 0.0 - 6.0 % [facility] Erythrocyte distribution width (RBC) [Ratio] 17.3 % High 11.5 - 14.5 % [facility] Hematocrit (Bld) [Volume fraction] 28.5 % Low 41.0 - 52.0 % [facility] Hemoglobin (Bld) [Mass/Vol] 8.5 g/dL Low 13.5 - 17.5 g/dL [facility] Immature granulocytes (Bld) [#/Vol] 0.06 10*3/uL [facility] Immature granulocytes/100 WBC (Bld) 0.5 % 0.0 - 0.9 % [facility] Interpretation and review of laboratory results Abnormal [facility] Lymphocytes (Bld) [#/Vol] 2.06 10*3/uL [facility] Lymphocytes/100 WBC (Bld) 15.6 % 13.0 - 44.0 % [facility] MCH (RBC) [Entitic mass] 25.1 pg Low 26. 0 - 34.0 pg [facility] MCHC (RBC) [Mass/Vol] 29.8 g/dL Low 32.0 - 36.0 g/dL [facility] MCV (RBC) [Entitic vol] 84 fL 80 - 100 fL [facility] Monocytes (Bld) [#/Vol] 1.3 10*3/uL High [facility] Monocytes/100 WBC (Bld) 9.8 % 2.0 - 10.0 % [facility] Neutrophils (Bld) [#/Vol] 9.09 10*3/uL [facility] Neutrophils/100 WBC (Bld) 68.8 % 40.0 - 80.0 % [facility] Nucleated RBC/100 WBC (Bld) [Ratio] 0 % [facility] Platelets (Bld) [#/Vol] 705 10*3/uL High [facility] RBC (Bld) [#/Vol] 3.38 10*6/uL Low Un[facility] WBC (Bld) [#/Vol] 13.2 10*3/uL [facility] ECG 12 LeadOrdered By: Yamilet Villa on 12-18-2024 Atrial Rate 72 BPM [facility] Work Phone: P Macon 58 degrees [facility] Work Phone: [phone] P Offset 180 ms [facility] Work Phone: [phone] P Onset 141 [facility] Work Phone: [phone] DC Interval 154 [facility] Work Phone: [phone] Q Onset 218 [facility] Work Phone: [phone] QRS Count 12 beats [facility] Work Phone: [phone] QRS Duration 92 ms [facility] Work Phone: QT Interval 382 ms [facility] Work Phone: QTC Calculation(Bazett) 418 ms U [facility] Work Phone: [phone] QTC Fredericia 406 ms [facility] Work Phone: [phone] R Macon 55 degrees [facility] Work Phone: [phone] T [place] 43 degrees [facility] Work Phone: [phone] T Offset 409 ms [facility] Work Phone: [phone] Ventricular Rate [address] [facility] Work Phone: [phone] [facility] Work Phone: [phone] ECG 12 Leadon 12-18-2024 [facility] Work Phone: CBC W Auto Differential pane l (Bld)on 12-17-2024 Basophils (Bld) [#/Vol] 0.09 10*3/uL [facility] Basophils/100 WBC (Bld) 0.7 % 0.0 - 2.0 % [facility] Eosinophils (Bld) [#/Vol] 0.65 10*3/uL [facility] Eosinophils/100 WBC (Bld) 4.9 % 0.0 - 6.0 % [facility] Erythrocyte distribution width (RBC) [Ratio] 17.4 % High 11.5 - 14.5 % [facility] Hematocrit (Bld) [Volume fraction] 29 % Low 41.0 - 52.0 % [facility] Hemoglobin (Bld) [Mass/Vol] 8.5 g/dL Low 13.5 - 17.5 g/dL [facility] Immature granulocytes (Bld) [#/Vol] 0.06 10*3/uL [facility] Immature granulocytes/100 WBC (Bld) 0.4 % 0.0 - 0.9 % [facility] Interpretation and review of laboratory results Abnormal [facility] Lymphocytes (Bld) [#/Vol] 2.18 10*3/uL [facility] Lymphocytes/100 WBC (Bld) 16.3 % 13.0 - 44.0 % [facility] MCH (RBC) [Entitic mass] 25.1 pg Low 26. 0 - 34.0 pg [facility] MCHC (RBC) [Mass/Vol] 29.3 g/dL Low 32.0 - 36.0 g/dL [facility] MCV (RBC) [Entitic vol] 86 fL 80 - 100 fL [facility] Monocytes (Bld) [#/Vol] 1.22 10*3/uL High [facility] Monocytes/100 WBC (Bld) 9.1 % 2.0 - 10.0 % [facility] Neutrophils (Bld) [#/Vol] 9.17 10*3/uL High [facility] Neutrophils/100 WBC (Bld) 68.6 % 40.0 - 80.0 % [facility] Nucleated RBC/100 WBC (Bld) [Ratio] 0 % [facility] Platelets (Bld) [#/Vol] 754 10*3/uL High [facility] RBC (Bld) [#/Vol] 3.38 10*6/uL Low Unive [facility] WBC (Bld) [#/Vol] 13.4 10*3/uL High [facility] Magnesiumon 12-17-2024 Magnesium [Mass/Vol] 1.94 mg/dL 1.60 - 2.40 mg/dL [facility] Magnesium [Mass/Vol]on 12-17 Interpretation and review of laboratory results Normal [facility] No Panel Informationon 12-17 [facility] Renal function 2000 panelon 12-17-2024 Albumin BCP dye [Mass/Vol] 3.3 g/dL Low 3.4 - 5.0 g/dL [facility] Anion gap [Moles/Vol] 12 mmol/L 10 - 2 0 mmol/L [facility] Calcium [Mass/Vol] 11.3 mg/dL High 8.6 - 10. 6 mg/dL [facility] Chloride [Moles/Vol] 99 mmol/L 98 - 10 7 mmol/L [facility] CO2 [Moles/Vol] 30 mmol/L 21 - 32 mmol/L [facility] Creatinine [Mass/Vol] 1.18 mg/dL 0.50 - 1.30 mg/dL [facility] GFR/1.73 sq M.predicted among non-blacks MDRD (S/P/Bld) [Vol rate/Area] 75 mL/min/{1.73_m2} - PINF [facility] Glucose [Mass/Vol] 92 mg/dL 74 - 99 mg/dL [facility] Interpretation and review of laboratory results Abnormal [facility] Phosphate [Mass/Vol] 2.6 mg/dL 2.5 - 4 .9 mg/dL [facility] Potassium [Moles/Vol] 4.1 mmol/L 3.5 - 5.3 mmol/L [facility] Sodium [Moles/Vol] 137 mmol/L 136 - 145 mmol/L [facility] Urea nitrogen [Mass/Vol] 14 mg/dL 6 - 23 mg/d L [facility] CBC W Auto Differential pane l (Bld)on 12-16-2024 Basophils (Bld) [#/Vol] 0.07 10*3/uL [facility] Basophils/100 WBC (Bld) 0.5 % 0.0 - 2.0 % [facility] Eosinophils (Bld) [#/Vol] 0.72 10*3/uL High [facility] Eosinophils/100 WBC (Bld) 5.6 % 0.0 - 6.0 % [facility] Erythrocyte distribution width (RBC) [Ratio] 17.3 % High 11.5 - 14.5 % [facility] Hematocrit (Bld) [Volume fraction] 27.8 % Low 41.0 - 52.0 % [facility] Hemoglobin (Bld) [Mass/Vol] 8.3 g/dL Low 13.5 - 17.5 g/dL [facility] Immature granulocytes (Bld) [#/Vol] 0.07 10*3/uL [facility] Immature granulocytes/100 WBC (Bld) 0.5 % 0.0 - 0.9 % [facility] Interpretation and review of laboratory results Abnormal [facility] Lymphocytes (Bld) [#/Vol] 2.28 10*3/uL [facility] Lymphocytes/100 WBC (Bld) 17.9 % 13.0 - 44.0 % [facility] MCH (RBC) [Entitic mass] 25.3 pg Low 26. 0 - 34.0 pg [facility] MCHC (RBC) [Mass/Vol] 29.9 g/dL Low 32.0 - 36.0 g/dL [facility] MCV (RBC) [Entitic vol] 85 fL 80 - 100 fL [facility] Monocytes (Bld) [#/Vol] 1.31 10*3/uL High [facility] Monocytes/100 WBC (Bld) 10.3 % 2.0 - 10.0 % [facility] Neutrophils (Bld) [#/Vol] 8.31 10*3/uL [facility] Neutrophils/100 WBC (Bld) 65.2 % 40.0 - 80.0 % [facility] Nucleated RBC/100 WBC (Bld) [Ratio] 0 % [facility] Platelets (Bld) [#/Vol] 660 10*3/uL High [facility] RBC (Bld) [#/Vol] 3.28 10*6/uL Low [facility] WBC (Bld) [#/Vol] 12.8 10*3/uL High [facility] RF videography Hypopharynx a nd Esophagus Views for swallowing function W speech and W barium contrast Veronica 12-16-2024 [facility] MMODAL U[facility] MMODAL [facility] Work Phone: Radiology Study observation (narrative) 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 OPERATOR/TENDER Modified Barium Swallow Evaluationon 12-16-2024 [facility] Work Phone: CBC W Auto Differential pane l (Bld)Ordered By: Ronna Bergeron on 12-15-2024 Basophils (Bld) [#/Vol] 0.06 10*3/uL [facility] Basophils/100 WBC (Bld) 0.4 % 0.0 - 2.0 % [facility] Eosinophils (Bld) [#/Vol] 0.69 10*3/uL [facility] Eosinophils/100 WBC (Bld) 4.9 % 0.0 - 6.0 % [facility] Erythrocyte distribution width (RBC) [Ratio] 17.3 % High 11.5 - 14.5 % [facility] Hematocrit (Bld) [Volume fraction] 27.6 % Low 41.0 - 52.0 % [facility] Hemoglobin (Bld) [Mass/Vol] 8.5 g/dL Low 13.5 - 17.5 g/dL [facility] Immature granulocytes (Bld) [#/Vol] 0.06 10*3/uL [facility] Immature granulocytes/100 WBC (Bld) 0.4 % 0.0 - 0.9 % [facility] Interpretation and review of laboratory results Abnormal [facility] Lymphocytes (Bld) [#/Vol] 2.15 10*3/uL [facility] Lymphocytes/100 WBC (Bld) 15.4 % 13.0 - 44.0 % [facility] MCH (RBC) [Entitic mass] 26 pg 26. 0 - 34.0 pg [facility] MCHC (RBC) [Mass/Vol] 30.8 g/dL Low 32.0 - 36.0 g/dL [facility] MCV (RBC) [Entitic vol] 84 fL 80 - 100 fL [facility] Monocytes (Bld) [#/Vol] 1.49 10*3/uL High [facility] Monocytes/100 WBC (Bld) 10.7 % 2.0 - 10.0 % [facility] Neutrophils (Bld) [#/Vol] 9.49 10*3/uL High [facility] Neutrophils/100 WBC (Bld) 68.2 % 40.0 - 80.0 % [facility] Nucleated RBC/100 WBC (Bld) [Ratio] 0 % [facility] Platelets (Bld) [#/Vol] 696 10*3/uL High [facility] RBC (Bld) [#/Vol] 3.27 10*6/uL Low Un[facility] WBC (Bld) [#/Vol] 13.9 10*3/uL High [facility] Comprehensive metabolic 2000 panelOrdered By: Eitan Calvo on 12-15-2024 Albumin BCP dye [Mass/Vol] 3.1 g/dL Low 3.4 - 5.0 g/dL [facility] ALP [Catalytic activity/Vol] 65 U/L 33 - 120 U/L [facility] ALT With P-5'-P [Catalytic activity/Vol] 16 U/L 10 - 52 U/L [facility] Anion gap [Moles/Vol] 15 mmol/L 10 - 2 0 mmol/L [facility] AST With P-5'-P [Catalytic activity/Vol] 17 U/L 9 - 39 U/L [facility] Bilirubin [Mass/Vol] 0.2 mg/dL 0.0 - 1 .2 mg/dL [facility] Calcium [Mass/Vol] 10.6 mg/dL 8.6 - 10. 6 mg/dL [facility] Chloride [Moles/Vol] 100 mmol/L 98 - 10 7 mmol/L [facility] CO2 [Moles/Vol] 28 mmol/L 21 - 32 mmol/L [facility] Creatinine [Mass/Vol] 1.12 mg/dL 0.50 - 1.30 mg/dL [facility] GFR/1.73 sq M.predicted among non-blacks MDRD (S/P/Bld) [Vol rate/Area] 80 mL/min/{1.73_m2} - PINF [facility] Glucose [Mass/Vol] 107 mg/dL High 74 - 99 mg/dL Uni [facility] Interpretation and review of laboratory results Abnormal [facility] Potassium [Moles/Vol] 4.6 mmol/L 3.5 - 5.3 mmol/L [facility] Protein [Mass/Vol] 7.2 g/dL 6.4 - 8.2 g/dL [facility] Sodium [Moles/Vol] 138 mmol/L 136 - 145 mmol/L [facility] Urea nitrogen [Mass/Vol] 12 mg/dL 6 - 23 mg/d L [facility] CBC W Auto Differential pane l (Bld)on 12-14-2024 Basophils (Bld) [#/Vol] 0.07 10*3/uL [facility] Basophils/100 WBC (Bld) 0.6 % 0.0 - 2.0 % [facility] Eosinophils (Bld) [#/Vol] 0.67 10*3/uL [facility] Eosinophils/100 WBC (Bld) 5.9 % 0.0 - 6.0 % [facility] Erythrocyte distribution width (RBC) [Ratio] 17.2 % High 11.5 - 14.5 % [facility] Hematocrit (Bld) [Volume fraction] 27.8 % Low 41.0 - 52.0 % [facility] Hemoglobin (Bld) [Mass/Vol] 8.1 g/dL Low 13.5 - 17.5 g/dL [facility] Immature granulocytes (Bld) [#/Vol] 0.05 10*3/uL [facility] Immature granulocytes/100 WBC (Bld) 0.4 % 0.0 - 0.9 % [facility] Interpretation and review of laboratory results Abnormal [facility] Lymphocytes (Bld) [#/Vol] 2.33 10*3/uL [facility] Lymphocytes/100 WBC (Bld) 20.5 % 13.0 - 44.0 % [facility] MCH (RBC) [Entitic mass] 25.2 pg Low 26. 0 - 34.0 pg [facility] MCHC (RBC) [Mass/Vol] 29.1 g/dL Low 32.0 - 36.0 g/dL [facility] MCV (RBC) [Entitic vol] 86 fL 80 - 100 fL [facility] Monocytes (Bld) [#/Vol] 1.21 10*3/uL High [facility] Monocytes/100 WBC (Bld) 10.6 % 2.0 - 10.0 % [facility] Neutrophils (Bld) [#/Vol] 7.04 10*3/uL [facility] Neutrophils/100 WBC (Bld) 62 % 40.0 - 80.0 % [facility] Nucleated RBC/100 WBC (Bld) [Ratio] 0 % [facility] Platelets (Bld) [#/Vol] 699 10*3/uL High [facility] RBC (Bld) [#/Vol] 3.22 10*6/uL Low [facility] WBC (Bld) [#/Vol] 11.4 10*3/uL High [facility] CBC W Auto Differential pane l (Bld)on 12-13-2024 Basophils (Bld) [#/Vol] 0.05 10*3/uL [facility] Basophils/100 WBC (Bld) 0.5 % 0.0 - 2.0 % [facility] [facility] Eosin[facility] (Bld) [#/Vol] 0.11 10*3/uL [facility] Eosinophils/100 WBC (Bld) 1 % 0.0 - 6.0 % [facility] Erythrocyte distribution width (RBC) [Ratio] 16.8 % High 11.5 - 14.5 % [facility] Hematocrit (Bld) [Volume fraction] 25.4 % Low 41.0 - 52.0 % [facility] Hemoglobin (Bld) [Mass/Vol] 7.6 g/dL Low 13.5 - 17.5 g/dL [facility] Immature granulocytes (Bld) [#/Vol] 0.05 10*3/uL [facility] Immature granulocytes/100 WBC (Bld) 0.5 % 0.0 - 0.9 % [facility] Interpretation and review of laboratory results Abnormal [facility] Lymphocytes (Bld) [#/Vol] 1.74 10*3/uL [facility] Lymphocytes/100 WBC (Bld) 15.7 % 13.0 - 44.0 % [facility] MCH (RBC) [Entitic mass] 25.2 pg Low 26. 0 - 34.0 pg [facility] MCHC (RBC) [Mass/Vol] 29.9 g/dL Low 32.0 - 36.0 g/dL [facility] MCV (RBC) [Entitic vol] 84 fL 80 - 100 fL [facility] Monocytes (Bld) [#/Vol] 1.2 10*3/uL High [facility] Monocytes/100 WBC (Bld) 10.8 % 2.0 - 10.0 % [facility] Neutrophils (Bld) [#/Vol] 7.92 10*3/uL High [facility] Neutrophils/100 WBC (Bld) 71.5 % 40.0 - 80.0 % [facility] Nucleated RBC/100 WBC (Bld) [Ratio] 0 % [facility] Platelets (Bld) [#/Vol] 663 10*3/uL High [facility] RBC (Bld) [#/Vol] 3.01 10*6/uL [facility] ([facility]ld[facility] [#/Vol] 11.1 10*3/uL Unive [facility] Magnesiumon 12-13-2024 Magnesium [Mass/Vol] 1.97 mg/dL 1.60 - 2.40 mg/dL [facility] Magnesium [Mass/Vol]on 12-13 Interpretation and review of laboratory results Normal [facility] No Panel Informationon 12-13 [facility] Renal function 2000 panelon 12-13-2024 Albumin BCP dye [Mass/Vol] 3.1 g/dL Low 3.4 - 5.0 g/dL [facility] Anion gap [Moles/Vol] 12 mmol/L 10 - 2 0 mmol/L [facility] Calcium [Mass/Vol] 10.1 mg/dL 8.6 - 10. 6 mg/dL [facility] Chloride [Moles/Vol] 102 mmol/L 98 - 10 7 mmol/L [facility] CO2 [Moles/Vol] 29 mmol/L 21 - 32 mmol/L [facility] Creatinine [Mass/Vol] 1.01 mg/dL 0.50 - 1.30 mg/dL [facility] GFR/1.73 sq M.predicted among non-blacks MDRD (S/P/Bld) [Vol rate/Area] 90 mL/min/{1.73_m2} - PINF [facility] Glucose [Mass/Vol] 126 mg/dL High 74 - 99 mg/[facility] Interpretation and review of laboratory results Abnormal [facility] Phosphate [Mass/Vol] 2.2 mg/dL Low 2.5 - 4 .9 mg/dL [facility] Potassium [Moles/Vol] 4.1 mmol/L 3.5 - 5.3 mmol/L [facility] Sodium [Moles/Vol] 139 mmol/L 136 - 145 mmol/L [facility] Urea nitrogen [Mass/Vol] 15 mg/dL 6 - 23 mg/d L [facility] CBC W Auto Differential pane l (Bld)on 12-12-2024 Basophils (Bld) [#/Vol] 0.06 10*3/uL [facility] Basophils/100 WBC (Bld) 0.5 % 0.0 - 2.0 % [facility] Eosinophils (Bld) [#/Vol] 0.66 10*3/uL [facility] Eosinophils/100 WBC (Bld) 5.1 % 0.0 - 6.0 % [facility] Erythrocyte distribution width (RBC) [Ratio] 16.7 % High 11.5 - 14.5 % [facility] Hematocrit (Bld) [Volume fraction] 26.5 % Low 41.0 - 52.0 % [facility] Hemoglobin (Bld) [Mass/Vol] 8.1 g/dL Low 13.5 - 17.5 g/dL [facility] Immature granulocytes (Bld) [#/Vol] 0.05 10*3/uL [facility] Immature granulocytes/100 WBC (Bld) 0.4 % 0.0 - 0.9 % [facility] Interpretation and review of laboratory results Abnormal [facility] Lymphocytes (Bld) [#/Vol] 1.86 10*3/uL [facility] Lymphocytes/100 WBC (Bld) 14.4 % 13.0 - 44.0 % [facility] MCH (RBC) [Entitic mass] 26 pg 26. 0 - 34.0 pg [facility] MCHC (RBC) [Mass/Vol] 30.6 g/dL Low 32.0 - 36.0 g/dL [facility] MCV (RBC) [Entitic vol] 85 fL 80 - 100 fL [facility] Monocytes (Bld) [#/Vol] 1.35 10*3/uL High [facility] Monocytes/100 WBC (Bld) 10.4 % 2.0 - 10.0 % [facility] Neutrophils (Bld) [#/Vol] 8.98 10*3/uL High [facility] Neutrophils/100 WBC (Bld) 69.2 % 40.0 - 80.0 % [facility] Nucleated RBC/100 WBC (Bld) [Ratio] 0 % [facility] Platelets (Bld) [#/Vol] 630 10*3/uL High [facility] RBC (Bld) [#/Vol] 3.11 10*6/uL [facility] (Bld) [#/Vol] 13 10*3/uL High [facility] ECG 12-LEADon 12-12-2024 ECG 12-LEAD Ventricular Rate 72 Atrial Rate 72 P-R Interval 154 QRS Duration 92 Q-T Interval 382 QTC Calculation(Bazett) 418 P Macon 58 R Macon 55 T Macon 43 QRS Count 12 Q Onset 218 P Onset 141 P Offset 180 T Offset 409 QTC Fredericia 406 Diagnosis Normal sinus rhythm Normal ECG When compared with ECG of 12-DEC-2024 12:27, (unconfirmed) No significant change was found Confirmed by Bobby Villa ([id number]) on 12/18/2024 5:50:09 PM Normal [facility] Hepatic function 2000 panelo n 12-12-2024 Albumin BCP dye [Mass/Vol] 2.9 g/dL Low 3.4 - 5.0 g/dL [facility] ALP [Catalytic activity/Vol] 56 U/L 33 - 120 U/L [facility] ALT With P-5'-P [Catalytic activity/Vol] 7 U/L Low 10 - 52 U/L [facility] AST With P-5'-P [Catalytic activity/Vol] 6 U/L Low 9 - 39 U/L [facility] Bilirubin [Mass/Vol] 0.2 mg/dL 0.0 - 1 .2 mg/dL [facility] Bilirubin.direct [Mass/Vol] 0.1 mg/dL 0.0 - 0.3 mg/dL [facility] Interpretation and review of laboratory results Abnormal [facility] Protein [Mass/Vol] 6.9 g/dL 6.4 - 8.2 g/dL [facility] MR Thigh - left WO and W con trast Mp 12-12-2024 UH MMODAL UH ODAL [facility] Work Phone: [facility] Work Phone: Radiology Study observation (narrative) [facility] Work Phone: MR Thigh - left WO contrasto n 12-12-2024 UH MMODAL UH MMODAL [facility] Work Phone: MR Thigh - left WO contrastO rdered By: Kong Armijo on 12-12-2024 [facility] Work Phone: Magnesiumon 12-12-2024 Magnesium [Mass/Vol] 2.01 mg/dL 1.60 - 2.40 mg/dL [facility] Magnesium [Mass/Vol]on 12-12 Interpretation and review of laboratory results Normal [facility] No Panel Informationon 12-12 [facility] Renal function 2000 panelon 12-12-2024 Albumin BCP dye [Mass/Vol] 3 g/dL Low 3.4 - 5.0 g/dL [facility] Anion gap [Moles/Vol] 11 mmol/L 10 - 2 0 mmol/L [facility] Calcium [Mass/Vol] 11.1 mg/dL High 8.6 - 10. 6 mg/dL [facility] Chloride [Moles/Vol] 103 mmol/L 98 - 10 7 mmol/L [facility] CO2 [Moles/Vol] 30 mmol/L 21 - 32 mmol/L [facility] Creatinine [Mass/Vol] 1.15 mg/dL 0.50 - 1.30 mg/dL [facility] GFR/1.73 sq M.predicted among non-blacks MDRD (S/P/Bld) [Vol rate/Area] 77 mL/min/{1.73_m2} - PINF [facility] Glucose [Mass/Vol] 102 mg/dL High 74 - 99 mg/dL [facility] Interpretation and review of laboratory results Abnormal [facility] Phosphate [Mass/Vol] 2.9 mg/dL 2.5 - 4 .9 mg/dL [facility] Potassium [Moles/Vol] 4.7 mmol/L 3.5 - 5.3 mmol/L [facility] Sodium [Moles/Vol] 139 mmol/L 136 - 145 mmol/L [facility] Urea nitrogen [Mass/Vol] 14 mg/dL 6 - 23 mg/d L [facility] Bacteria identified Cx Nom ( Bld)on 12-11-2024 Interpretation and review of laboratory results Normal [facility] CBC W Auto Differential pane l (Bld)on 12-11-2024 Basophils (Bld) [#/Vol] 0.06 10*3/uL [facility] Basophils/100 WBC (Bld) 0.5 % 0.0 - 2.0 % [facility] Eosinophils (Bld) [#/Vol] 0.43 10*3/uL [facility] Eosinophils/100 WBC (Bld) 3.7 % 0.0 - 6.0 % [facility] Erythrocyte distribution width (RBC) [Ratio] 16.7 % High 11.5 - 14.5 % [facility] Hematocrit (Bld) [Volume fraction] 27.1 % Low 41.0 - 52.0 % [facility] Hemoglobin (Bld) [Mass/Vol] 8.1 g/dL Low 13.5 - 17.5 g/dL [facility] Immature granulocytes (Bld) [#/Vol] 0.05 10*3/uL [facility] Immature granulocytes/100 WBC (Bld) 0.4 % 0.0 - 0.9 % [facility] Interpretation and review of laboratory results Abnormal [facility] Lymphocytes (Bld) [#/Vol] 1.57 10*3/uL [facility] Lymphocytes/100 WBC (Bld) 13.6 % 13.0 - 44.0 % [facility] MCH (RBC) [Entitic mass] 25.5 pg Low 26. 0 - 34.0 pg [facility] MCHC (RBC) [Mass/Vol] 29.9 g/dL Low 32.0 - 36.0 g/dL [facility] MCV (RBC) [Entitic vol] 85 fL 80 - 100 fL [facility] Monocytes (Bld) [#/Vol] 1.8 10*3/uL High [facility] Monocytes/100 WBC (Bld) 15.6 % 2.0 - 10.0 % [facility] Neutrophils (Bld) [#/Vol] 7.64 10*3/uL [facility] Neutrophils/100 WBC (Bld) 66.2 % 40.0 - 80.0 % [facility] Nucleated RBC/100 WBC (Bld) [Ratio] 0 % [facility] Platelets (Bld) [#/Vol] 649 10*3/uL High [facility] RBC (Bld) [#/Vol] 3.18 10*6/uL Low [facility] W[facility] (Bld) [#/Vol] 11.6 10*3/uL High Unive [facility] Laboratory - Microbiology an d Antimicrobial susceptibilityon 12-11-2024 Bacteria identified Cx Nom (Bld) No growth at 4 days - FINAL REPORT [facility] Magnesiumon 12-11-2024 Magnesium [Mass/Vol] 1.96 mg/dL 1.60 - 2.40 mg/dL [facility] Magnesium [Mass/Vol]on 12-11 Interpretation and review of laboratory results Normal [facility] No Panel Informationon 12-11 [facility] Renal function 2000 panelon 12-11-2024 Albumin BCP dye [Mass/Vol] 2.9 g/dL Low 3.4 - 5.0 g/dL [facility] Anion gap [Moles/Vol] 9 mmol/L Low 10 - 2 0 mmol/L [facility] Calcium [Mass/Vol] 10.4 mg/dL 8.6 - 10. 6 mg/dL [facility] Chloride [Moles/Vol] 101 mmol/L 98 - 10 7 mmol/L [facility] CO2 [Moles/Vol] 29 mmol/L 21 - 32 mmol/L [facility] Creatinine [Mass/Vol] 1.34 mg/dL High 0.50 - 1.30 mg/dL [facility] GFR/1.73 sq M.predicted among non-blacks MDRD (S/P/Bld) [Vol rate/Area] 64 mL/min/{1.73_m2} - PINF [facility] Glucose [Mass/Vol] 99 mg/dL 74 - 99 mg/dL [facility] Interpretation and review of laboratory results Abnormal [facility] Phosphate [Mass/Vol] 3 mg/dL 2.5 - 4 .9 mg/dL [facility] Potassium [Moles/Vol] 4.3 mmol/L 3.5 - 5.3 mmol/L [facility] Sodium [Moles/Vol] 135 mmol/L Low 136 - 145 mmol/L [facility] Urea nitrogen [Mass/Vol] 13 mg/dL 6 - 23 mg/d L [facility] CBC W Auto Differential pane l (Bld)on 12-10-2024 Basophils (Bld) [#/Vol] 0.07 10*3/uL [facility] Basophils/100 WBC (Bld) 0.6 % 0.0 - 2.0 % [facility] Eosinophils (Bld) [#/Vol] 0.52 10*3/uL [facility] Eosinophils/100 WBC (Bld) 4.5 % 0.0 - 6.0 % [facility] Erythrocyte distribution width (RBC) [Ratio] 16.8 % High 11.5 - 14.5 % [facility] Hematocrit (Bld) [Volume fraction] 26.7 % Low 41.0 - 52.0 % [facility] Hemoglobin (Bld) [Mass/Vol] 8.1 g/dL Low 13.5 - 17.5 g/dL [facility] Immature granulocytes (Bld) [#/Vol] 0.04 10*3/uL [facility] Immature granulocytes/100 WBC (Bld) 0.3 % 0.0 - 0.9 % [facility] Interpretation and review of laboratory results Abnormal [facility] Lymphocytes (Bld) [#/Vol] 1.84 10*3/uL [facility] Lymphocytes/100 WBC (Bld) 16.1 % 13.0 - 44.0 % [facility] MCH (RBC) [Entitic mass] 25.8 pg Low 26. 0 - 34.0 pg [facility] MCHC (RBC) [Mass/Vol] 30.3 g/dL Low 32.0 - 36.0 g/dL [facility] MCV (RBC) [Entitic vol] 85 fL 80 - 100 fL [facility] Monocytes (Bld) [#/Vol] 1.42 10*3/uL High [facility] Monocytes/100 WBC (Bld) 12.4 % 2.0 - 10.0 % [facility] Neutrophils (Bld) [#/Vol] 7.57 10*3/uL [facility] Neutrophils/100 WBC (Bld) 66.1 % 40.0 - 80.0 % [facility] Nucleated RBC/100 WBC (Bld) [Ratio] 0 % [facility] Platelets (Bld) [#/Vol] 663 10*3/uL High [facility] RBC (Bld) [#/Vol] 3.14 10*6/uL Low Unive [facility] WBC (Bld) [#/Vol] 11.5 10*3/uL High [facility] MR Thigh - left WO contrasto n 12-10-2024 Radiology Study observation (narrative) [facility] Work Phone: Magnesiumon 12-10-2024 Magnesium [Mass/Vol] 1.9 mg/dL 1.60 - 2.40 mg/dL [facility] No Panel Informationon 12-10 Interpretation and review of laboratory results Normal [facility] Renal function 2000 panelon 12-10-2024 Albumin BCP dye [Mass/Vol] 3 g/dL Low 3.4 - 5.0 g/dL [facility] Anion gap [Moles/Vol] 12 mmol/L 10 - 2 0 mmol/L [facility] Calcium [Mass/Vol] 10.1 mg/dL 8.6 - 10. 6 mg/dL [facility] Chloride [Moles/Vol] 102 mmol/L 98 - 10 7 mmol/L [facility] CO2 [Moles/Vol] 29 mmol/L 21 - 32 mmol/L [facility] Creatinine [Mass/Vol] 1.28 mg/dL 0.50 - 1.30 mg/dL [facility] GFR/1.73 sq M.predicted among non-blacks MDRD (S/P/Bld) [Vol rate/Area] 68 mL/min/{1.73_m2} - PINF [facility] Glucose [Mass/Vol] 89 mg/dL 74 - 99 mg/dL Uni [facility] Interpretation and review of laboratory results Abnormal [facility] Phosphate [Mass/Vol] 3.5 mg/dL 2.5 - 4 .9 mg/dL [facility] Potassium [Moles/Vol] 4.1 mmol/L 3.5 - 5.3 mmol/L [facility] Sodium [Moles/Vol] 139 mmol/L 136 - 145 mmol/L [facility] Urea nitrogen [Mass/Vol] 11 mg/dL 6 - 23 mg/d L [facility] Vancomycinon 12-10-2024 Vancomycin [Mass/Vol] 10.1 ug/mL 5.0 - 20.0 ug/mL [facility] Vancomycin [Mass/Vol]on 11-17 [facility] Bacteria identified Cx Nom ( Unsp spec)Ordered By: Mari Monique on 12-09-2024 Interpretation and review of laboratory results Abnormal [facility] Microscopic observation Gram stain Nom (Unsp spec) (2+) Few Polymorphonuclear leukocytes Abnormal [facility] Microscopic observation Gram stain Nom (Unsp spec) Positive Abnormal [facility] Blood type and Indirect anti body screen panel (Bld)on 12-09-2024 ABO group Nom (Bld) A [facility] Blood group antibody screen Ql Negative [facility] D Ag Ql (Bld) Positive [facility] CBC W Auto Differential pane l (Bld)on 12-09-2024 Basophils (Bld) [#/Vol] 0.06 10*3/uL [facility] Basophils/100 WBC (Bld) 0.6 % 0.0 - 2.0 % [facility] Eosinophils (Bld) [#/Vol] 0.49 10*3/uL [facility] Eosinophils/100 WBC (Bld) 4.8 % 0.0 - 6.0 % [facility] Erythrocyte distribution width (RBC) [Ratio] 16.4 % High 11.5 - 14.5 % [facility] Hematocrit (Bld) [Volume fraction] 25.6 % Low 41.0 - 52.0 % [facility] Hemoglobin (Bld) [Mass/Vol] 8.3 g/dL Low 13.5 - 17.5 g/dL [facility] Immature granulocytes (Bld) [#/Vol] 0.16 10*3/uL [facility] Immature granulocytes/100 WBC (Bld) 1.6 % High 0.0 - 0.9 % [facility] Interpretation and review of laboratory results Abnormal [facility] Lymphocytes (Bld) [#/Vol] 1.81 10*3/uL [facility] Lymphocytes/100 WBC (Bld) 17.8 % 13.0 - 44.0 % [facility] MCH (RBC) [Entitic mass] 26.2 pg 26. 0 - 34.0 pg [facility] MCHC (RBC) [Mass/Vol] 32.4 g/dL 32.0 - 36.0 g/dL [facility] MCV (RBC) [Entitic vol] 81 fL 80 - 100 fL [facility] Monocytes (Bld) [#/Vol] 1.04 10*3/uL High [facility] Monocytes/100 WBC (Bld) 10.2 % 2.0 - 10.0 % [facility] Neutrophils (Bld) [#/Vol] 6.63 10*3/uL [facility] Neutrophils/100 WBC (Bld) 65 % 40.0 - 80.0 % [facility] Nucleated RBC/100 WBC (Bld) [Ratio] 0 % [facility] Platelets (Bld) [#/Vol] 650 10*3/uL High [facility] RBC (Bld) [#/Vol] 3.17 10*6/uL Low [facility] WBC (Bld) [#/Vol] 10.2 10*3/uL [facility] Magnesiumon 12-09-2024 Magnesium [Mass/Vol] 1.9 mg/dL 1.60 - 2.40 mg/dL [facility] Magnesium [Mass/Vol]on 12-09 Interpretation and review of laboratory results Normal [facility] No Panel Informationon 12-09 [facility] PT and aPTT panel Coag (PPP) on 12-09-2024 aPTT Coag (PPP) [Time] [facility] (PPP[facility] [Relative time] 1.3 {INR} High 0.9 - 1.1 [facility] Interpretation and review of laboratory results Abnormal [facility] PT Coag (PPP) [Time] 14.[address] s [address] [facility] Renal function 2000 panelon 12-09-2024 Albumin BCP dye [Mass/Vol] 3.1 g/dL Low 3.4 - 5.0 g/dL [facility] Anion gap [Moles/Vol] 15 mmol/L 10 - 2 0 mmol/L [facility] Calcium [Mass/Vol] 9.8 mg/dL 8.6 - 10. 6 mg/dL [facility] Chloride [Moles/Vol] 104 mmol/L 98 - 10 7 mmol/L [facility] CO2 [Moles/Vol] 25 mmol/L 21 - 32 mmol/L [facility] Creatinine [Mass/Vol] 1.2 mg/dL 0.50 - 1.30 mg/dL [facility] GFR/1.73 sq M.predicted among non-blacks MDRD (S/P/Bld) [Vol rate/Area] 73 mL/min/{1.73_m2} - PINF [facility] Glucose [Mass/Vol] 92 mg/dL 74 - 99 mg/dL Uni [facility] Interpretation and review of laboratory results Abnormal [facility] Phosphate [Mass/Vol] 3.4 mg/dL 2.5 - 4 .9 mg/dL [facility] Potassium [Moles/Vol] 3.6 mmol/L 3.5 - 5.3 mmol/L [facility] Sodium [Moles/Vol] 140 mmol/L 136 - 145 mmol/L [facility] Urea nitrogen [Mass/Vol] 15 mg/dL 6 - 23 mg/d L [facility] Tissue/Wound Culture/SmearOr dered By: Mari Monique on 12-09-2024 Bacteria identified Cx Nom (Unsp spec) (4+) Abundant Mixed Gram-Positive and Gram-Negative Bacteria [facility] CBC W Auto Differential pane l (Bld)on 12-08-2024 Basophils (Bld) [#/Vol] 0.05 10*3/uL [facility] Basophils/100 WBC (Bld) 0.4 % 0.0 - 2.0 % [facility] Eosinophils (Bld) [#/Vol] 0.55 10*3/uL [facility] Eosinophils/100 WBC (Bld) 4.8 % 0.0 - 6.0 % [facility] Erythrocyte distribution width (RBC) [Ratio] 17 % High 11.5 - 14.5 % [facility] Hematocrit (Bld) [Volume fraction] 26.1 % Low 41.0 - 52.0 % [facility] Hemoglobin (Bld) [Mass/Vol] 7.8 g/dL Low 13.5 - 17.5 g/dL [facility] Immature granulocytes (Bld) [#/Vol] 0.05 10*3/uL [facility] Immature granulocytes/100 WBC (Bld) 0.4 % 0.0 - 0.9 % [facility] Interpretation and review of laboratory results Abnormal [facility] Lymphocytes (Bld) [#/Vol] 1.34 10*3/uL [facility] Lymphocytes/100 WBC (Bld) 11.7 % 13.0 - 44.0 % [facility] MCH (RBC) [Entitic mass] 25.3 pg Low 26. 0 - 34.0 pg [facility] MCHC (RBC) [Mass/Vol] 29.9 g/dL Low 32.0 - 36.0 g/dL [facility] MCV (RBC) [Entitic vol] 85 fL 80 - 100 fL [facility] Monocytes (Bld) [#/Vol] 1.36 10*3/uL High [facility] Monocytes/100 WBC (Bld) 11.9 % 2.0 - 10.0 % [facility] Neutrophils (Bld) [#/Vol] 8.1 10*3/uL High [facility] Neutrophils/100 WBC (Bld) 70.8 % 40.0 - 80.0 % [facility] Nucleated RBC/100 WBC (Bld) [Ratio] 0 % [facility] Platelets (Bld) [#/Vol] 595 10*3/uL High [facility] RBC (Bld) [#/Vol] 3.08 10*6/uL [facility] W[facility] (Bld) [#/Vol] 11.5 10*3/uL High [facility] – [facility] 2000 panelon 12-08-2024 Albumin BCP dye [Mass/Vol] 2.9 g/dL Low 3.4 - 5.0 g/dL [facility] ALP [Catalytic activity/Vol] 48 U/L 33 - 120 U/L [facility] ALT With P-5'-P [Catalytic activity/Vol] 6 U/L Low 10 - 52 U/L [facility] Anion gap [Moles/Vol] 12 mmol/L 10 - 2 0 mmol/L [facility] AST With P-5'-P [Catalytic activity/Vol] 6 U/L Low 9 - 39 U/L [facility] Bilirubin [Mass/Vol] 0.3 mg/dL 0.0 - 1 .2 mg/dL [facility] Calcium [Mass/Vol] 9.4 mg/dL 8.6 - 10. 6 mg/dL [facility] Chloride [Moles/Vol] 106 mmol/L 98 - 10 7 mmol/L [facility] CO2 [Moles/Vol] 26 mmol/L 21 - 32 mmol/L [facility] Creatinine [Mass/Vol] 1.33 mg/dL High 0.50 - 1.30 mg/dL [facility] GFR/1.73 sq M.predicted among non-blacks MDRD (S/P/Bld) [Vol rate/Area] 65 mL/min/{1.73_m2} - PINF [facility] Glucose [Mass/Vol] 112 mg/dL High 74 - 99 mg/[facility] Interpretation and review of laboratory results Abnormal [facility] Potassium [Moles/Vol] 3.8 mmol/L 3.5 - 5.3 mmol/L [facility] Protein [Mass/Vol] 6.5 g/dL 6.4 - 8.2 g/dL [facility] Sodium [Moles/Vol] 140 mmol/L 136 - 145 mmol/L [facility] Urea nitrogen [Mass/Vol] 17 mg/dL 6 - 23 mg/d L [facility] No Panel Informationon 12-08 [facility] Vancomycinon 12-08-2024 Vancomycin [Mass/Vol] 16.6 ug/mL 5.0 - 20.0 ug/mL [facility] Vancomycin [Mass/Vol]on 11-17 Interpretation and review of laboratory results Normal [facility] C-reactive proteinon 025 CRP [Mass/Vol] 10.84 mg/dL High NINF - 1.00 mg/dL [facility] CBC W Auto Differential pane l (Bld)on 12-07-2024 Basophils (Bld) [#/Vol] 0 10*3/uL 0.0 - 0.2 10*3/uL [facility] Verical Basophils/100 WBC (Bld) 0.3 % 0.0 - 2.0 % [facility] Verical Eosinophils (Bld) [#/Vol] 0.4 10*3/uL 0.0 - 0.5 10*3/uL [facility] Verical Eosinophils/100 WBC (Bld) 3.3 % 0.0 - 6.0 % [facility] Verical Erythrocyte distribution width (RBC) [Ratio] 16.6 % High 11.5 - 15.0 % [facility]ical Hematocrit (Bld) [Volume fraction] 26.4 % Low 40.0 - 52.0 % [facility] Hemoglobin (Bld) [Mass/Vol] 8.4 g/dL Low 13.0 - 18.0 g/dL [facility] Immature granulocytes (Bld) [#/Vol] 0 10*3/uL NINF - 0.1 10*3/uL [facility] Verical Immature granulocytes/100 WBC (Bld) 0.3 % 0.0 - 2.0 % [facility] Interpretation and review of laboratory results Abnormal [facility] Lymphocytes (Bld) [#/Vol] 1.7 10*3/uL 1.0 - 4.3 10*3/uL [facility] Lymphocytes/100 WBC (Bld) 13.9 % Low 15.0 - 45.0 % [facility] MCH (RBC) [Entitic mass] 25.7 pg Low 26. 0 - 34.0 pg [facility] MCHC (RBC) [Mass/Vol] 31.8 % 30.5 - 36.0 % [facility] MCV (RBC) [Entitic vol] 80.7 fL 77.0 - 99.0 fL [facility] Monocytes (Bld) [#/Vol] 1.4 10*3/uL High 0.0 - 0.9 10*3/uL [facility] Monocytes/100 WBC (Bld) 11.3 % 5.0 - 13.0 % [facility] Neutrophils (Bld) [#/Vol] 8.5 10*3/uL High 1.8 - 7.5 10*3/uL [facility] Neutrophils/100 WBC (Bld) 70.9 % 38.0 - 82.0 % [facility] Nucleated RBC/100 WBC (Bld) [Ratio] 0 % [facility] Platelet mean volume (Bld) [Entitic vol] 8.5 fL Low 9.0 - 12.7 fL [facility] Platelets (Bld) [#/Vol] 609 10*3/uL High 140 - 440 10*3/uL [facility] RBC (Bld) [#/Vol] 3.27 10*6/uL Low 4.40 - 5.9 0 10*6/uL [facility] WBC (Bld) [#/Vol] 12 10*3/uL High 3.6 - 10.7 10*3/uL [facility] CBC WITH AUTO DIFFERENTIALon 12-07-2024 Basophils (Bld) [#/Vol] 0.0 10*3/uL Normal 0.0-0.2 [facility] Comment on above: Performed By: #### L [id number] ####Heating And Air Conditioning Mechanic: JAZLYN JIMENEZ ([phone])[facility])[address] [place] [address] Basophils/100 WBC (Bld) 0.3 % Normal 0.0-2.0 S [facility] Comment on above: Performed By: #### L [id number] ####Heating And Air Conditioning Mechanic: JAZLYN JIMENEZ ([phone])[facility])[address] [place] [address] Eosinophils (Bld) [#/Vol] 0.4 10*3/uL Normal 0.0-0.5 [facility] Comment on above: Performed By: #### L [id number] ####Heating And Air Conditioning Mechanic: JAZLYN JIMENEZ ([phone])[facility])[address] [place] [address] Eosinophils/100 WBC (Bld) 3.3 % Normal 0.0-6.0 [facility] Comment on above: Performed By: #### L [id number] ####Heating And Air Conditioning Mechanic: JAZLYN JIMENEZ ([phone])[facility])[address] [place] [address] Erythrocyte distribution width (RBC) [Ratio] 16.6 % High 11.5-15.0 [facility] Comment on above: Performed By: #### L [id number] ####Heating And Air Conditioning Mechanic: JAZLYN JIMENEZ ([phone])[facility])[address] [place] [address] Hematocrit (Bld) [Volume fraction] 26.4 % Low 40.0-52.0 [facility] Comment on above: Performed By: #### L [id number] ####Heating And Air Conditioning Mechanic: JAZLYN JIMENEZ ([phone])[facility])[address] [place] [address] Hemoglobin (Bld) [Mass/Vol] 8.4 g/dL Low 13.0-18.0 [facility] Comment on above: Performed By: #### L [id number] ####Heating And Air Conditioning Mechanic: JAZLYN JIMENEZ ([phone])[facility])[address] [place] [address] IMMATURE GRANS % 0.3 % Normal 0.0-2.0 [facility] Comment on above: Performed By: #### L [id number] ####Heating And Air Conditioning Mechanic: JAZLYN JIMENEZ ([phone])[facility])[address] [place] [address] IMMATURE GRANS ABSOLUTE 0.0 10*3/uL Normal <0.1 [facility] Comment on above: Performed By: #### L [id number] ####Heating And Air Conditioning Mechanic: JAZLYN JIMENEZ ([phone])[facility])[address] [place] [address] Lymphocytes (Bld) [#/Vol] 1.7 10*3/uL Normal 1.0-4.3 [facility] Comment on above: Performed By: #### L [id number] ####Heating And Air Conditioning Mechanic: JAZLYN JIMENEZ ([phone])[facility])[address] [place] [address] Lymphocytes/100 WBC (Bld) 13.9 % Low 15.0-45.0 [facility] Comment on above: Performed By: #### L [id number] ####Heating And Air Conditioning Mechanic: JAZLYN JIMENEZ ([phone])[facility])[address] [place] [address] MCH (RBC) [Entitic mass] 25.7 pg Low 26.0-34.0 [facility] Comment on above: Performed By: #### L [id number] ####Heating And Air Conditioning Mechanic: JAZLYN JIMENEZ ([phone])[facility])[address] [place] [address] MCHC 31.8 % Normal 30.5-36.0 [facility] Comment on above: Performed By: #### L [id number] ####Heating And Air Conditioning Mechanic: JAZLYN JIMENEZ ([phone])[facility])[address] [place] [address] MCV (RBC) [Entitic vol] 80.7 fL Normal 77.0-99.0 S [facility] Comment on above: Performed By: #### L [id number] ####Heating And Air Conditioning Mechanic: JAZLYN JIMENEZ ([phone])[facility] ([facility])[address] [place] [address] Monocytes (Bld) [#/Vol] 1.4 10*3/uL High 0.0-0.9 [facility] Comment on above: Performed By: #### L [id number] ####Heating And Air Conditioning Mechanic: JAZLYN JIMENEZ ([phone])[facility] ([facility])[address] [place] [address] Monocytes/100 WBC (Bld) 11.3 % Normal 5.0-13.0 S [facility] Comment on above: Performed By: #### L [id number] ####Heating And Air Conditioning Mechanic: JAZLYN JIMENEZ ([phone])[facility] ([facility])[address] [place] [address] NEUTROPHILS ABSOLUTE 8.5 10*3/uL High 1.8-7.5 [facility] Comment on above: Performed By: #### L [id number] ####Heating And Air Conditioning Mechanic: JAZLYN JIMENEZ ([id number])[facility] ([facility])[address] [place] [address] Neutrophils/100 WBC (Bld) 70.9 % Normal 38.0-82.0 [facility] Comment on above: Performed By: #### L [id number] ####Heating [employer] Air Conditioning Mechanic: JAZLYN JIMENEZ ([phone])[facility] ([facility])[address] [place] [address] NRBC 0.0 /100 WBCs Normal 0.0-2.0 [facility] Comment on above: Performed By: #### L [id number] ####Heating And Air Conditioning Mechanic: JAZLYN JIMENEZ ([phone])[facility] ([facility])[address] [place] [address] Platelet mean volume (Bld) [Entitic vol] 8.5 fL Low 9.0-12.7 [facility] Comment on above: Performed By: #### L [id number] ####Heating And Air Conditioning Mechanic: JAZLYN JIMENEZ ([phone])[facility] ([facility])[address] [place] [address] Platelets (Bld) [#/Vol] 609 10*3/uL High 140-440 [facility] Comment on above: Performed By: #### L [id number] ####Heating [employer] Air Conditioning Mechanic: JAZLYN JIMENEZ ([phone])[facility] ([facility])[address] [place] [address] RBC (Bld) [#/Vol] 3.27 10*6/uL Low 4.40-5.90 [facility] Comment on above: Performed By: #### L [id number] ####Heating [employer] Air Conditioning Mechanic: JAZLYN JIMENEZ ([phone])[facility] ([facility])[address] [place] [address] WBC (Bld) [#/Vol] 12.0 10*3/uL High 3.6-10.7 [facility] Comment on above: Performed By: #### L [id number] ####Heating And Air Conditioning Mechanic: JAZLYN JIMENEZ ([phone])[facility])[address] [place] [address] CBC panel Auto (Bld)on 12-07 Erythrocyte distribution width (RBC) [Ratio] 16.8 % High 11.5 - 14.5 % [facility] Hematocrit (Bld) [Volume fraction] 26.5 % Low 41.0 - 52.0 % [facility] Hemoglobin (Bld) [Mass/Vol] 8 g/dL Low 13.5 - 17.5 g/dL [facility] Interpretation and review of laboratory results Abnormal [facility] MCH (RBC) [Entitic mass] 25.4 pg Low 26. 0 - 34.0 pg [facility] MCHC (RBC) [Mass/Vol] 30.2 g/dL Low 32.0 - 36.0 g/dL [facility] MCV (RBC) [Entitic vol] 84 fL 80 - 100 fL [facility] Nucleated RBC/100 WBC (Bld) [Ratio] 0 % [facility] Platelets (Bld) [#/Vol] 645 10*3/uL High [facility] RBC (Bld) [#/Vol] 3.15 10*6/uL [facility] WBC (Bld) [#/Vol] 12 10*3/uL [facility] COMPREHENSIVE METABOLIC PANE Yuriy 12-07-2024 Albumin [Mass/Vol] 2.5 g/dL Low 3.5-5.0 [facility] Comment on above: Performed By: #### L [id number], [id number], LAB17 ####Heating And Air Conditioning Mechanic: JAZLYN JIMENEZ ([phone])[facility])[address] [place] [address] ALP [Catalytic activity/Vol] 57 U/L Normal 40-150 [facility] Comment on above: Performed By: #### Kamila [id number], [id number], LAB17 ####Heating And Air Conditioning Mechanic: JAZLYN JIMENEZ ([phone])[facility] ([facility])[address] [place] [address] [place] ALT [Catalytic activity/Vol] U/L Normal <40 [facility] Comment on above: Performed By: #### Kamila [id number], [id number], LAB17 ####Heating And Air Conditioning Mechanic: JAZLYN JIMENEZ ([phone])[facility] ([facility])[address] [place] [address] Anion gap [Moles/Vol] 7 mmol/L Normal 3-13 [facility] Comment on above: Performed By: #### L [id number], [id number], LAB17 ####Heating And Air Conditioning Mechanic: JAZLYN JIMENEZ ([phone])[facility] ([facility])[address] [place] [address] [place] AST [Catalytic activity/Vol] 10 U/L Normal <34 [facility] Comment on above: Performed By: #### L [id number], [id number], LAB17 ####Heating And Air Conditioning Mechanic: JAZLYN JIMENEZ ([phone])[facility] ([facility])[address] [place] [address] [place] Bilirubin [Mass/Vol] 0.3 mg/dL Normal <1.2 [facility] Comment on above: Performed By: #### Kamila AB103, [id number], LAB17 ####Heating And Air Conditioning Mechanic: JAZLYN JIMENEZ ([phone])[facility] ([facility])[address] [place] [address] Calcium [Mass/Vol] 9.4 mg/dL Normal 8.4-10.2 [facility] Comment on above: Performed By: #### Kamila ABRanda, [id number], LAB17 ####Heating And Air Conditioning Mechanic: JAZLYN JIMENEZ ([phone])[facility] ([facility])[address] [place] [address] Chloride [Moles/Vol] 113 mmol/L High 98-107 [facility] Comment on above: Performed By: #### Kamila [id number], [id number], LAB17 ####Heating And Air Conditioning Mechanic: JAZLYN JIMENEZ ([phone])[facility] ([facility])[address] [place] [address] CO2 [Moles/Vol] 21 mmol/L Low 22-29 [facility] Comment on above: Performed By: #### Kamila LOUISE, [id number], LAB17 ####Heating And Air Conditioning Mechanic: JAZLYN JIMENEZ ([phone])[facility] ([facility])[address] [place] [address] Creatinine [Mass/Vol] 1.17 mg/dL Normal 0.72-1.25 [facility] Comment on above: Performed By: #### Kamila LOUISE, [id number], LAB17 ####Heating And Air Conditioning Mechanic: JAZLYN JIMENEZ ([phone])[facility])[address] [place] [address] GLOMERULAR FILTRATION RATE ML/MIN/1.73 SQ M.PREDICTED 75.5 mL/min/1.73m*2 Normal >60.0 [facility] Comment on above: Result Comment: Calc ulation based on the Chronic Kidney Disease Epidemiology Collaboration (CKD-EPI) equation refit without adjustment for race Performed By: #### Kamila ABRanda, [id number], LAB17 ####Heating And Air Conditioning Mechanic: JAZLYN JIMENEZ ([phone])[facility])[address] [place] [address] Glucose [Mass/Vol] 96 mg/dL Normal 74-100 [facility] Comment on above: Performed By: #### L AB103, [id number], LAB17 ####Heating And Air Conditioning Mechanic: JAZLYN JIMENEZ ([phone])[facility])[address] [place] [address] Potassium [Moles/Vol] 3.9 mmol/L Normal 3.5-5.1 [facility] Comment on above: Result Comment: [facility] potassium values may be up to 0.5 mmol/L lower than serum values. Performed By: #### L AB103, [id number], LAB17 ####Heating And Air Conditioning Mechanic: JAZLYN JIMENEZ ([phone])[facility] ([facility])[address] [place] [address] Protein [Mass/Vol] 6.6 g/dL Normal 6.4-8.3 [facility] Comment on above: Performed By: #### L AB103, [id number], LAB17 ####Heating And Air Conditioning Mechanic: JAZLYN JIMENEZ ([phone])[facility] ([facility])[address] [place] [address] Sodium [Moles/Vol] 141 mmol/L Normal 136-145 [facility] Comment on above: Performed By: #### L AB103, [id number], LAB17 ####Heating And Air Conditioning Mechanic: JAZLYN JIMENEZ ([phone])[facility])[address] [place] [address] Urea nitrogen [Mass/Vol] 14 mg/dL Normal 9-23 [facility] Comment on above: Performed By: #### L AB103, [id number], LAB17 ####Heating And Air Conditioning Mechanic: JAZLYN JIMENEZ ([phone])[facility])[address] [place] [address] Comprehensive metabolic 1998 panelon 12-07-2024 Albumin [Mass/Vol] 2.5 g/dL Low 3.5 - 5.0 g/dL [facility] ALP [Catalytic activity/Vol] 57 U/L 40 - 150 U/L [facility] ALT [Catalytic activity/Vol] U/L NINF - 40 U/L [facility] Anion gap [Moles/Vol] 7 mmol/L 3 - 13 mmol/L [facility] AST [Catalytic activity/Vol] 10 U/L NINF - 34 U/L [facility] Bilirubin [Mass/Vol] 0.3 mg/dL NINF - 1.2 mg/dL [facility] Calcium [Mass/Vol] 9.4 mg/dL 8.4 - 10. 2 mg/dL [facility] Chloride [Moles/Vol] 113 mmol/L High 98 - 10 7 mmol/L [facility] CO2 [Moles/Vol] 21 mmol/L Low 22 - 29 mmol/L [facility] Creatinine [Mass/Vol] 1.17 mg/dL 0.72 - 1.25 mg/dL [facility] GFR/1.73 sq M.predicted (S/P/Bld) [Vol rate/Area] 75.5 mL/min - PINF [facility] Comment on above: Calculation based on the Chronic Kidney Disease Epidemiology Collaboration (CKD-EPI) equation refit without adjustment for race Glucose [Mass/Vol] 96 mg/dL 74 - 100 mg/dL [facility] Interpretation and review of laboratory results Abnormal [facility] Potassium [Moles/Vol] 3.9 mmol/L 3.5 - 5.1 mmol/L [facility] Comment on above: Plasma potassium jeri ues may be up to 0.5 mmol/L lower than serum values. Protein [Mass/Vol] 6.6 g/dL 6.4 - 8.3 g/dL [facility] Sodium [Moles/Vol] 141 mmol/L 136 - 145 mmol/L [facility] Urea nitrogen [Mass/Vol] 14 mg/dL 9 - 23 mg/d L [facility] Comprehensive metabolic 2000 panelon 12-07-2024 Albumin BCP dye [Mass/Vol] 3.1 g/dL Low 3.4 - 5.0 g/dL [facility] ALP [Catalytic activity/Vol] 53 U/L 33 - 120 U/L [facility] ALT With P-5'-P [Catalytic activity/Vol] 7 U/L Low 10 - 52 U/L [facility] Anion gap [Moles/Vol] 13 mmol/L 10 - 2 0 mmol/L [facility] AST With P-5'-P [Catalytic activity/Vol] 8 U/L Low 9 - 39 U/L [facility] Bilirubin [Mass/Vol] 0.4 mg/dL 0.0 - 1 .2 mg/dL [facility] Calcium [Mass/Vol] 9.6 mg/dL 8.6 - 10. 6 mg/dL [facility] Chloride [Moles/Vol] 109 mmol/L High 98 - 10 7 mmol/L [facility] CO2 [Moles/Vol] 22 mmol/L 21 - 32 mmol/L [facility] Creatinine [Mass/Vol] 1.32 mg/dL High 0.50 - 1.30 mg/dL [facility] GFR/1.73 sq M.predicted among non-blacks MDRD (S/P/Bld) [Vol rate/Area] 65 mL/min/{1.73_m2} - PINF [facility] Glucose [Mass/Vol] 91 mg/dL 74 - 99 mg[facility] Potassium [Moles/Vol] 3.9 mmol/L 3.5 - 5.3 mmol/L [facility] Protein [Mass/Vol] 6.7 g/dL 6.4 - 8.2 g/dL [facility] Sodium [Moles/Vol] 140 mmol/L 136 - 145 mmol/L [facility] Urea nitrogen [Mass/Vol] 16 mg/dL 6 - 23 mg/d L [facility] Consulton 12-07-2024 Consult Pharmacy Managed Vancomycin Dosing [...] creatinine, and vancomycin levels interfaced automatically to [place] and data has been analyzed and interpreted. [...] questions. DATE: 12/07/24 TIME: 6:11 AM Nicola Garce [facility] Clinical Pharmacist Available via Secure Chat [facility] ED Nursing Noteon 12-07-2024 ED Nursing Note Report to AMAN Galindo. [facility] ED Nursing Note Patient provided urinal per request. Respirations even and unlabored. No acute distress noted. Normal [facility] ED Nursing Note Report from AMAN Galindo. [facility] ED Nursing Note Report to Josie/AMAN and patient moved to room 9 with all belongings and breakfast tray [facility] ED Nursing Note Patient moving from 43 to [address] [facility] ED Nursing Note RN/Margarita ordered breakfast for the patient per his preference [facility] ED Nursing Note Requested pharmacy to retime Vanc due to 3 hour administration of Zosyn (& both ordered at same time) [facility] ED Nursing Note Patient actively vomiting - provider notified [facility] ED Nursing Note Report given to AMAN Sutton Normal [facility] ESR Westergren method (Bld) [Velocity]on 12-07-2024 ESR (Bld) [Velocity] 102 mm/h High 0 - 20 mm/h [facility] Interpretation and review of laboratory results Abnormal [facility] - Chemistry and C hemistry - challengeon 12-07-2024 Magnesium [Mass/Vol] 1.8 mg/dL 1.6 - 2 .6 mg/dL [facility] MAGNESIUMon 12-07-2024 Magnesium [Mass/Vol] 1.8 mg/dL Normal 1.6-2.6 [facility] Comment on above: Result Comment: MAYRA Dhillon COMMENTS: Higher values can be expected in females during menses. Performed By: #### L [id number], [id number], LAB17 ####Heating And Air Conditioning Mechanic: JAZLYN JIMENEZ ([phone])[facility] ([facility])[address] [place] [address] Magnesiumon 12-07-2024 Magnesium [Mass/Vol] 1.86 mg/dL 1.60 - 2.40 mg/dL [facility] Magnesium [Mass/Vol]on 12-07 Interpretation and review of laboratory results Normal [facility] Higher values can be expected in females during menses. [facility] No Panel Informationon 12-07 Interpretation and review of laboratory results Abnormal [facility] Interpretation and review of laboratory results Normal [facility] Nursing Noteon 12-07-2024 Nursing Note [id number] called report to ambulance is here to pick patient up Normal [facility] PHOSPHORUSon 12-07-2024 Phosphate [Mass/Vol] 2.5 mg/dL Normal 2.3-4.7 [facility] Comment on above: Performed By: #### L AB103, [id number], LAB17 ####Heating And Air Conditioning Mechanic: JAZLYN JIMENEZ ([phone])[facility] ([facility])[address] [place] [address] Phosphate [Moles/Vol]on 11-17 Phosphate [Mass/Vol] 2.5 mg/dL 2.3 - 4 .7 mg/dL [facility] Progress Noteon 12-07-2024 Progress Note Physician Response Please review the following and provide your response below. Please clarify which of the following accurately describes the patient's CKD Stage: CKD Stage 2 (GFR 60-89) This documentation will become part of the patient's medical record. Normal [facility] BLOOD CULTUREon 12-06-2024 Bacteria identified Cx Nom (Bld) BLOOD CULTURE Reference No growth at 5 days ORDER COMMENTS: Blood Collection Site: Right Forearm [ S = SUSCEPTIBLE R = RESISTANT I = INTERMEDIATE S-DD = Susceptible-dose dependent NS = Non-susceptible NO = No Interpretation ] Normal [facility] Comment on above: Performed By: #### L [id number], [id number] #### Heating And Air Conditioning Mechanic: JAZLYN JIMENEZ ([phone]) [facility]) [address] [place] [address] Bacteria identified Cx Nom (Bld) BLOOD CULTURE Reference No growth at 5 days ORDER COMMENTS: Blood Collection Site: Right Antecubital [ S = SUSCEPTIBLE R = RESISTANT I = INTERMEDIATE S-DD = Susceptible-dose dependent NS = Non-susceptible NO = No Interpretation ] Normal [facility] Comment on above: Performed By: #### L [id number], [id number] #### Heating And Air Conditioning Mechanic: JAZLYN JIMENEZ ([id number]) [facility] ([facility]) [address] [place] [address] C-REACTIVE PROTEINon 025 CRP [Mass/Vol] 95.9 mg/L High <5.0 [facility] Comment on above: Performed By: #### L AB17, [id number] ####Heating And Air Conditioning Mechanic: JAZLYN JIMENEZ ([phone])[facility] ([facility])[address] [place] [address] CBC W Auto Differential pane l (Bld)on 12-06-2024 Basophils (Bld) [#/Vol] 0 10*3/uL 0.0 - 0.2 10*3/uL [facility] Basophils/100 WBC (Bld) 0.3 % 0.0 - 2.0 % [facility] Eosinophils (Bld) [#/Vol] 0.3 10*3/uL 0.0 - 0.5 10*3/uL [facility] Eosinophils/100 WBC (Bld) 2.4 % 0.0 - 6.0 % [facility] Erythrocyte distribution width (RBC) [Ratio] 16.9 % High 11.5 - 15.0 % [facility] Hematocrit (Bld) [Volume fraction] 28.6 % Low 40.0 - 52.0 % [facility] Hemoglobin (Bld) [Mass/Vol] 9 g/dL Low 13.0 - 18.0 g/dL [facility] Immature granulocytes (Bld) [#/Vol] 0 10*3/uL NINF - 0.1 10*3/uL [facility] Immature granulocytes/100 WBC (Bld) 0.3 % 0.0 - 2.0 % [facility] Interpretation and review of laboratory results Abnormal [facility] Lymphocytes (Bld) [#/Vol] 1.5 10*3/uL 1.0 - 4.3 10*3/uL [facility] Lymphocytes/100 WBC (Bld) 11.4 % Low 15.0 - 45.0 % [facility] MCH (RBC) [Entitic mass] 25.7 pg Low 26. 0 - 34.0 pg [facility] MCHC (RBC) [Mass/Vol] 31.5 % 30.5 - 36.0 % [facility] MCV (RBC) [Entitic vol] 81.7 fL 77.0 - 99.0 fL [facility] Monocytes (Bld) [#/Vol] 1.1 10*3/uL High 0.0 - 0.9 10*3/uL [facility] Monocytes/100 WBC (Bld) 8.6 % 5.0 - 13.0 % [facility] Neutrophils (Bld) [#/Vol] 10 10*3/uL High 1.8 - 7.5 10*3/uL [facility] Neutrophils/100 WBC (Bld) 77 % 38.0 - 82.0 % [facility] Nucleated RBC/100 WBC (Bld) [Ratio] 0 % [facility] Platelet mean volume (Bld) [Entitic vol] 8.8 fL Low 9.0 - 12.7 fL [facility] Platelets (Bld) [#/Vol] 681 10*3/uL High 140 - 440 10*3/uL [facility] RBC (Bld) [#/Vol] 3.5 10*6/uL Low 4.40 - 5.9 0 10*6/uL [facility] WBC (Bld) [#/Vol] 13 10*3/uL High 3.6 - 10.7 10*3/uL [facility] CBC WITH AUTO DIFFERENTIALon 12-06-2024 Basophils (Bld) [#/Vol] 0.0 10*3/uL Normal 0.0-0.2 [facility] Comment on above: Performed By: #### Kamila DE SOUZA8, [id number] ####Heating And Air Conditioning Mechanic: JAZLYN JIMENEZ ([phone])[facility])[address] [place] [address] Basophils/100 WBC (Bld) 0.3 % Normal 0.0-2.0 [facility] Comment on above: Performed By: #### Kamila KELSEY, [id number] ####Heating And Air Conditioning Mechanic: JAZLYN JIMENEZ ([phone])[facility])[address] [place] [address] Eosinophils (Bld) [#/Vol] 0.3 10*3/uL Normal 0.0-0.5 [facility] Comment on above: Performed By: #### Kamila KELSEY, [id number] ####Heating And Air Conditioning Mechanic: JAZLYN JIMENEZ ([phone])[facility])[address] [place] [address] Eosinophils/100 WBC (Bld) 2.4 % Normal 0.0-6.0 [facility] Comment on above: Performed By: #### Kamila KELSEY, [id number] ####Heating And Air Conditioning Mechanic: JAZLYN JIMENEZ ([phone])[facility])[address] [place] [address] Erythrocyte distribution width (RBC) [Ratio] 16.9 % High 11.5-15.0 [facility] Comment on above: Performed By: #### Kamila [id number], [id number] ####Heating And Air Conditioning Mechanic: JAZLYN [id number])[facility])[address] [place] [address] [place] Hematocrit (Bld) [Volume fraction] 28.6 % Low 40.0-52.0 [facility] Comment on above: Performed By: #### Kamila KELSEY, [id number] ####Heating And Air Conditioning Mechanic: JAZLYN JIMENEZ ([phone])[facility])[address] [place] [address] Hemoglobin (Bld) [Mass/Vol] 9.0 g/dL Low 13.0-18.0 [facility] Comment on above: Performed By: #### Kamila KELSEY, [id number] ####Heating And Air Conditioning Mechanic: JAZLYN JIMENEZ ([phone])[facility])[address] [place] [address] IMMATURE GRANS % 0.3 % Normal 0.0-2.0 [facility] Comment on above: Performed By: #### Kamila KELSEY, [id number] ####Heating And Air Conditioning Mechanic: JAZLYN JIMENEZ ([phone])[facility])[address] [place] [address] IMMATURE GRANS ABSOLUTE 0.0 10*3/uL Normal <0.1 [facility] Comment on above: Performed By: #### Kamila KELSEY, [id number] ####Heating [employer] Air Conditioning Mechanic: JAZLYN JIMENEZ ([phone])[facility])[address] [place] [address] Lymphocytes (Bld) [#/Vol] 1.5 10*3/uL Normal 1.0-4.3 [facility] Comment on above: Performed By: #### Kamila KELSEY, [id number] ####Heating And Air Conditioning Mechanic: JAZLYN JIMENEZ ([phone])[facility])[address] [place] [address] Lymphocytes/100 WBC (Bld) 11.4 % Low 15.0-45.0 [facility] Comment on above: Performed By: #### Kamila [id number], [id number] ####Heating And Air Conditioning Mechanic: JAZLYN JIMENEZ ([phone])[address] MCH (RBC) [Entitic mass] 25.7 pg Low 26.0-34.0 [facility] Comment on above: Performed By: #### Kamila KELSEY, [id number] ####Heating And Air Conditioning Mechanic: JAZLYN JIMENEZ ([id number])[facility])[address] [place] [address] MCHC 31.5 % Normal 30.5-36.0 [facility] Comment on above: Performed By: #### Kamila KELSEY, [id number] ####Heating And Air Conditioning Mechanic: JAZLYN JIMENEZ ([phone])[facility])[address] [place] [address] MCV (RBC) [Entitic vol] 81.7 fL Normal 77.0-99.0 S [facility] Comment on above: Performed By: #### Kamila KELSEY, [id number] ####Heating And Air Conditioning Mechanic: JAZLYN JIMENEZ ([phone])[facility])[address] [place] [address] Monocytes (Bld) [#/Vol] 1.1 10*3/uL High 0.0-0.9 [facility] Comment on above: Performed By: #### Kamila KELSEY, [id number] ####Heating And Air Conditioning Mechanic: JAZLYN JIMENEZ ([id number])[facility])[address] [place] [address] Monocytes/100 WBC (Bld) 8.6 % Normal 5.0-13.0 S [facility] Comment on above: Performed By: #### Kamila KELSEY, [id number] ####Heating And Air Conditioning Mechanic: JAZLYN JIMENEZ ([phone])[facility])[address] [place] [address] NEUTROPHILS ABSOLUTE 10.0 10*3/uL High 1.8-7.5 [facility] Comment on above: Performed By: #### Kamila [id number], [id number] ####Heating And Air Conditioning Mechanic: JAZLYN JIMENEZ ([phone])[facility])[address] [place] [address] Neutrophils/100 WBC (Bld) 77.0 % Normal 38.0-82.0 [facility] Comment on above: Performed By: #### Kamila KELSEY, [id number] ####Heating And Air Conditioning Mechanic: JAZLYN JIMENEZ ([phone])[facility])[address] [place] [address] NRBC 0.0 /100 WBCs Normal 0.0-2.0 [facility] Comment on above: Performed By: #### Kamila KELSEY, [id number] ####Heating And Air Conditioning Mechanic: JAZLYN JIMENEZ ([id number])[facility] ([facility])[address] [place] [address] Platelet mean volume (Bld) [Entitic vol] 8.8 fL Low 9.0-12.7 [facility] Comment on above: Performed By: #### Kamila KELSEY, [id number] ####Heating And Air Conditioning Mechanic: JAZLYN JIMENEZ ([id number])[facility])[address] [place] [address] Platelets (Bld) [#/Vol] 681 10*3/uL High 140-440 [facility] Comment on above: Performed By: #### Kamila KELSEY, [id number] ####Heating And Air Conditioning Mechanic: JAZLYN JIMENEZ ([phone])[facility])[address] [place] [address] RBC (Bld) [#/Vol] 3.50 10*6/uL Low 4.40-5.90 [facility] Comment on above: Performed By: #### Kamila KELSEY, [id number] ####Heating And Air Conditioning Mechanic: JAZLYN JIMENEZ ([phone])[facility])[address] [place] [address] WBC (Bld) [#/Vol] 13.0 10*3/uL High 3.6-10.7 [facility] Comment on above: Performed By: #### L [id number], [id number] ####Heating And Air Conditioning Mechanic: JAZLYN JIMENEZ ([phone])[facility])[address] [place] [address] COMPLETE URINALYSISon 2024 BILIRUBIN, TOTAL PRESENCE IN URINE Negative Normal Negative [facility] Comment on above: Performed By: #### L [id number] ####Heating And Air Conditioning Mechanic: JAZLYN JIMENEZ ([id number])[facility] ([facility])[address] [place] [address] Clarity (U) Clear Normal Clear [facility] Comment on above: Performed By: #### L [id number] ####Heating And Air Conditioning Mechanic: JAZLYN JIMENEZ ([id number])[facility])[address] [place] [address] Color (U) Light Yellow Normal Lt. Yellow [facility] Comment on above: Performed By: #### L [id number] ####Heating And Air Conditioning Mechanic: JAZLYN JIMENEZ ([id number])[facility])[address] [place] [address] GLUCOSE (MG/DL) IN URINE Normal Normal Normal (<70 ) [facility] Comment on above: Performed By: #### L [id number] ####Heating And Air Conditioning Mechanic: JAZLYN JIMENEZ ([phone])[facility])[address] [place] [address] HEMOGLOBIN PRESENCE IN URINE Negative Normal Negative [facility] Comment on above: Performed By: #### L [id number] ####Heating And Air Conditioning Mechanic: JAZLYN JIMENEZ ([id number])[facility])[address] [place] [address] Ketones Ql (U) Negative Normal Negative [facility] Comment on above: Performed By: #### L [id number] ####Heating And Air Conditioning Mechanic: JAZLYN JIMENEZ ([id number])[facility])[address] [place] [address] [place] LEUKOCYTE ESTERASE PRESENCE IN URINE BY TEST STRIP Negative Normal Negative [facility] Comment on above: Performed By: #### L [id number] ####Heating And Air Conditioning Mechanic: JAZLYN JIMENEZ ([phone])[facility] ([facility])[address] [place] [address] NITRITE PRESENCE IN URINE Negative Normal Negative [facility] Comment on above: Performed By: #### L [id number] ####Heating And Air Conditioning Mechanic: JAZLYN JIMENEZ ([phone])[facility] ([facility])[address] [place] [address] pH (U) 5.5 [pH] Normal 5.0-8.0 [facility] Comment on above: Performed By: #### L [id number] ####Heating And Air Conditioning Mechanic: JAZLYN JIMENEZ ([phone])[facility])[address] [place] [address] Protein (U) [Mass/Vol] Negative Normal Negative [facility] Comment on above: Performed By: #### L [id number] ####Heating And Air Conditioning Mechanic: JAZLYN JIMENEZ ([phone])[facility])[address] [place] [address] Specific gravity (U) [Rel density] 1.016 Normal 1.005-1.030 [facility] Comment on above: Performed By: #### L [id number] ####Heating And Air Conditioning Mechanic: JAZLYN JIMENEZ ([phone])[facility])[address] [place] [address] UROBILINOGEN (MG/DL) IN URINE Normal Normal Normal (0-1) [facility] Comment on above: Performed By: #### L [id number] ####Heating And Air Conditioning Mechanic: JAZLYN JIMENEZ ([id number])[facility])[address] [place] [address] COMPREHENSIVE METABOLIC PANE Yuriy 12-06-2024 Albumin [Mass/Vol] 2.7 g/dL Low 3.5-5.0 [facility] Comment on above: Performed By: #### L AB17, [id number] ####Heating And Air Conditioning Mechanic: JAZLYN JIMENEZ ([phone])[facility])[address] [place] [address] ALP [Catalytic activity/Vol] 63 U/L Normal 40-150 [facility] Comment on above: Performed By: #### L AB17, [id number] ####Heating And Air Conditioning Mechanic: JAZLYN JIMENEZ ([phone])[facility])[address] [place] [address] [place] ALT [Catalytic activity/Vol] 7 U/L Normal <40 [facility] Comment on above: Performed By: #### L AB17, [id number] ####Heating And Air Conditioning Mechanic: JAZLYN JIMENEZ ([phone])[facility] ([facility])[address] [place] [address] Anion gap [Moles/Vol] 8 mmol/L Normal 3-13 [facility] Comment on above: Performed By: #### L AB17, [id number] ####Heating And Air Conditioning Mechanic: JAZLYN JIMENEZ ([id number])[facility] ([facility])[address] [place] [address] AST [Catalytic activity/Vol] 17 U/L Normal <34 [facility] Comment on above: Performed By: #### L AB17, [id number] ####Heating And Air Conditioning Mechanic: JAZLYN JIMENEZ ([id number])[facility] ([facility])[address] [place] [address] Bilirubin [Mass/Vol] 0.2 mg/dL Normal <1.2 [facility] Comment on above: Performed By: #### L AB17, [id number] ####Heating And Air Conditioning Mechanic: JAZLYN JIMENEZ ([phone])[facility] ([facility])[address] [place] [address] Calcium [Mass/Vol] 10.0 mg/dL Normal 8.4-10.2 [facility] Comment on above: Performed By: #### L AB17, [id number] ####Heating And Air Conditioning Mechanic: JAZLYN JIMENEZ ([id number])[facility] ([facility])[address] [place] [address] [place] Chloride [Moles/Vol] 110 mmol/L High 98-107 [facility] Comment on above: Performed By: #### L AB17, [id number] ####Heating And Air Conditioning Mechanic: JAZLYN JIMENEZ ([phone])[facility] ([facility])[address] [place] [address] [place] CO2 [Moles/Vol] 23 mmol/L Normal 22-29 [facility] Comment on above: Performed By: #### L AB17, [id number] ####Heating And Air Conditioning Mechanic: JAZLYN JIMENEZ ([phone])[facility])[address] [place] [address] Creatinine [Mass/Vol] 1.19 mg/dL Normal 0.72-1.25 [facility] Comment on above: Performed By: #### L AB17, [id number] ####Heating And Air Conditioning Mechanic: JAZLYN JIMENEZ ([phone])[facility])[address] [place] [address] GLOMERULAR FILTRATION RATE ML/MIN/1.73 SQ M.PREDICTED 74.0 mL/min/1.73m*2 Normal >60.0 [facility] Comment on above: Result Comment: Calc ulation based on the Chronic Kidney Disease Epidemiology Collaboration (CKD-EPI) equation refit without adjustment for race Performed By: #### L AB17, [id number] ####Heating And Air Conditioning Mechanic: JAZLYN JIMENEZ ([phone])[facility])[address] [place] [address] Glucose [Mass/Vol] 92 mg/dL Normal 74-100 [facility] Comment on above: Performed By: #### L AB17, [id number] ####Heating And Air Conditioning Mechanic: JAZLYN JIMENEZ ([phone])[address] Potassium [Moles/Vol] 4.3 mmol/L Normal 3.5-5.1 [facility] Comment on above: Result Comment: [facility] potassium values may be up to 0.5 mmol/L lower than serum values. Performed By: #### L AB17, [id number] ####Heating And Air Conditioning Mechanic: JAZLYN JIMENEZ ([id number])[facility])[address] [place] [address] Protein [Mass/Vol] 7.4 g/dL Normal 6.4-8.3 [facility] Comment on above: Performed By: #### L AB17, [id number] ####Heating And Air Conditioning Mechanic: JAZLYN JIMENEZ ([id number])[facility])[address] [place] [address] [place] Sodium [Moles/Vol] 141 mmol/L Normal 136-145 [facility] Comment on above: Performed By: #### L AB17, [id number] ####Heating And Air Conditioning Mechanic: JAZLYN JIMENEZ ([id number])[facility])[address] [place] [address] Urea nitrogen [Mass/Vol] 15 mg/dL Normal 9-23 [facility] Comment on above: Performed By: #### L AB17, [id number] ####Heating And Air Conditioning Mechanic: JAZLYN JIMENEZ ([phone])[facility])[address] [place] [address] CRP [Mass/Vol]Ordered By: Dave Churchill on 12-06-2024 Interpretation and review of laboratory results Abnormal [facility] CT PELVIS W IV CONTRASTon CT PELVIS W IV CONTRAST Patient Name: KEVAN LA : 1975 Exam [...] on our table best imaging possible Normal [facility] CT Pelvis W contrast Mp Impression: Large wound along the proximal posterior thigh with large abscess within the posterior compartment of the left upper thigh. There is also presumed cellulitis. No obvious acute cortical erosion. Please note, the marrow is not assessed on a CT examination. Report Dictated on Electronically Signed By: Tess Carter MD Electronically Signed Date/Time: 12/06/2024 1:29 PM EDT [facility] Patient Name: KEVAN LA : 1975 [...] Probable few small bladder diverticula present, posteriorly. [facility] Tess Carter MD - 12/06/2024 Patient Name: [...] Electronically Signed Date/Time: 12/06/2024 1:29 PM EDT [facility] Radiology Study observation (narrative) [facility] CT Pelvis W contrast IVOrder ed By: Tess Carter on 12-06-2024 [facility] Work Phone: CULTURE ANAEROBICon 12-07-19 25 CULTURE ANAEROBIC ANAEROBIC CULTURE Reference Mixed aerobic and anaerobic bacteria present. BACTEROIDES FRAGILIS GROUP Few Bacteroides fragilis group (A) [ S = SUSCEPTIBLE R = RESISTANT I = INTERMEDIATE S-DD = Susceptible-dose dependent NS = Non-susceptible NO = No Interpretation ] Normal [facility] Comment on above: Performed By: #### L [id number] #### Heating And Air Conditioning Mechanic: JAZLYN JIMENEZ ([id number]) [facility] ([address] CULTURE, AEROBIC BACTERIA WI GRAM STAINon 12-06-2024 CULTURE, AEROBIC BACTERIA WITH GRAM STAIN CULTURE Reference Moderate enteric phil present GRAM STAIN RESULT (A) Reference (A) Few Polymorphonuclear leukocytes per low power field Rare Gram negative bacilli [ S = SUSCEPTIBLE R = RESISTANT I = INTERMEDIATE S-DD = Susceptible-dose dependent NS = Non-susceptible NO = No Interpretation ] Normal [facility] Comment on above: Performed By: #### L [id number], [id number] #### Heating And Air Conditioning Mechanic: JAZLYN JIMENEZ ([id number]) [facility] ([facility]) [address] [place] [address] Comprehensive metabolic 1998 panelon 12-06-2024 Albumin [Mass/Vol] 2.7 g/dL Low 3.5 - 5.0 g/dL [facility] ALP [Catalytic activity/Vol] 63 U/L 40 - 150 U/L [facility] ALT [Catalytic activity/Vol] 7 U/L NINF - 40 U/L [facility] Anion gap [Moles/Vol] 8 mmol/L 3 - 13 mmol/L [facility] AST [Catalytic activity/Vol] 17 U/L NINF - 34 U/L [facility] Bilirubin [Mass/Vol] 0.2 mg/dL NINF - 1.2 mg/dL [facility] Calcium [Mass/Vol] 10 mg/dL 8.4 - 10. 2 mg/dL [facility] Chloride [Moles/Vol] 110 mmol/L High 98 - 10 7 mmol/L [facility] CO2 [Moles/Vol] 23 mmol/L 22 - 29 mmol/L [facility] Creatinine [Mass/Vol] 1.19 mg/dL 0.72 - 1.25 mg/dL [facility] GFR/1.73 sq M.predicted (S/P/Bld) [Vol rate/Area] 74 mL/min - PINF [facility] Comment on above: Calculation based on the Chronic Kidney Disease Epidemiology Collaboration (CKD-EPI) equation refit without adjustment for race Glucose [Mass/Vol] 92 mg/dL 74 - 100 mg/dL [facility] Interpretation and review of laboratory results Abnormal [facility] Potassium [Moles/Vol] 4.3 mmol/L 3.5 - 5.1 mmol/L [facility] Comment on above: Plasma potassium jeri ues may be up to 0.5 mmol/L lower than serum values. Protein [Mass/Vol] 7.4 g/dL 6.4 - 8.3 g/dL [facility] Sodium [Moles/Vol] 141 mmol/L 136 - 145 mmol/L [facility] Urea nitrogen [Mass/Vol] 15 mg/dL 9 - 23 mg/d L [facility] ECG 12-LEADon 12-06-2024 ECG 12-LEAD IMPRESSION: Sinus bradycardia Electronically Signed On 12-06-2024 11:47:13 EDT by Fer Hollins [facility] ED Nursing Noteon 12-06-2024 ED Nursing Note Assume care of pt from AMAN Sutton for lunch coverage [facility] ED Nursing Note Patient requested pillow to place under right hip/leg for comfort. States he got a text message from that he can "early check in" and questioned if transfer was arranged. This nurse advised patient unknown at this time. [facility] ED Nursing Note Pt to CT Normal [facility] ED Nursing Note This RN attempted to obtain another IV access and blood cultures but was unsuccessful [facility] ED Nursing Note Report to AMAN Pittman. [facility] ED Nursing Note Pt presents to ED via EMS from an assisted living facility with c/o a seeping ulcer. EMS reports this has been an ongoing issue. Pt states he is only ambulatory for short distances. Pt is A&Ox4. [facility] ED Provider Noteon ED Provider Note [...] presents to the emergency department from an F with increased wound drainage from the left [...] for clarification.) Fer Hollins MD Acute Care [facility] Fer Hollins MD 12/06/[address] [place] [address] ED Provider Note Emergency Department Encounter Location: [facility] EMERGENCY DEPT Patient: Kevan La : 1975 Date of evaluation: 12/06/2024 ED Provider: Rogelio Wilkinson DO Time received sign-out: 1967 Kevan La was checked out to me [...] 397 ms QTC Interval 390 ms P [place] 44 degrees QRS [place] 55 degrees T Wave [place] 56 degrees DC Interval 142 ms Blood culture Site #1 [...] signout was to transfer the patient to [facility] for further management of his gluteal abscess (more content not included)... [facility] ED Provider Note EMERGENCY DEPARTMENT ENCOUNTER Pt Name: Kevan La Birthdate 1975 Date of evaluation: 12/06/2024 ED Provider: Latricia Schroeder DO CHIEF COMPLAINT Chief Complaint Patient presents with Wound Check HISTORY OF PRESENT ILLNESS (Location/Symptom, Timing/Onset, Context/Setting, Quality, Duration, Modifying Factors, Severity) Note limiting factors. I wore appropriate PPE for the entirety of this encounter. HPI Kevan La is a 49 y.o. who presents to the emergency department from nursing home facility with concern for left hip wound. Per records he has had a left hip wound and abscess for the past few months and recently had it drained at [facility]. He expresses concern for increasing pain, drainage [...] Resource Strain: Medium Risk (12/07/2024) Received from [facility] Overall Financial Resource Strain (CARDIA) Difficulty of Paying Living Expenses: Somewhat hard Food Insecurity: No Food Insecurity (12/07/2024) Received from [facility] Hunger Vital Sign Worried About Running Out of Food in the Last Year: Never true Ran Out of Food in the Last Year: Never true Recent Concern: Food Insecurity - Food Insecurity Present (10/11/2024) Received from [facility] Hunger Vital Sign Worried About Running Out of Food in the Last Year: Sometimes true Ran Out of Food in the Last Year: Sometimes true Transportation Needs: No Transportation Needs (12/07/2024) Received from [facility] PRAPARE - Transportation Lack of Transportation (Medical): No Lack of Transportation (Non-Medical): No Intimate Partner Violence: Not At Risk (12/07/2024) Received from [facility] Humiliation, Afraid, Rape, and Kick questionnaire Fear of Current or Ex-Partner: No Emotionally Abused: No Physically Abused: No Sexually Abused: No Housing Stability: High Risk (12/07/2024) Received from [facility] Housing Stability Vital Sign Unable to Pay for Housing in the Last Year: Yes Number of Times Moved in the Last Year: 1 Homeless in the Last Year: No SCREENINGS Kofi Coma Scale Best Eye Response: Spontaneous Best Verbal Response: Oriented Best Motor Response: Follows commands [place] Coma Scale Score: 15 PHYSICAL EXAM ED [...] Result Impression: (more content not included)... Normal [facility] ED Provider Note I was signed out [...] Fer Hull MD Resident 12/08/24 0656 Normal [facility] ESR (Bld) [Velocity]Ordered By: Philly Lal on 12-06-2024 Interpretation and review of laboratory results Abnormal [facility] Laboratory - Chemistry and C hemistry - challengeOrdered By: Oneida Churchill on 12-06-2024 CRP [Mass/Vol] 95.9 mg/L High NINF - 5.0 mg/L [facility] Laboratory - Hematology and Cell countsOrdered By: Philly Lal on 12-06-2024 ESR (Bld) [Velocity] 73 mm/h High [facility] No Panel Informationon 12-06 P [place] 44 degrees [facility] DC Interval 142 ms [facility] QRS [place] 55 degrees [facility] QRSD Interval 94 ms [facility] h QT Interval 397 ms [facility] QTC Interval 390 ms [facility] T Wave [place] 56 degrees [facility] Sinus bradycardia Electronically Signed On 12-06-2024 11:47:13 EDT by Fer Hollins CV Fer Nix MD - 12/06/2024 IMPRESSION: Sinus bradycardia Electronically Signed On 12-06-2024 11:47:13 EDT by Fer Hollins [facility] Progress Noteon 12-06-2024 Progress Note Culture result reviewed. No further treatment needed. Normal [facility] SEDIMENTATION RATE, AUTOMATE Don 12-06-2024 SEDIMENTATION RATE, ERYTHROCYTE 73 mm/hr High 0-10 [facility] Comment on above: Performed By: #### L [id number] ####Heating And Air Conditioning Mechanic: JAZLYN JIMENEZ ([id number])[facility] ([address] Urinalysis complete panel (U )on 12-06-2024 Bilirubin Ql (U) Negative Negative mg/dL [facility] Clarity (U) Clear Clear [facility] Color (U) Light Yellow Lt. Yellow [facility] Glucose Ql (U) Normal Normal (<70) mg/dL [facility] Hemoglobin Ql (U) Negative Negative mg/dL [facility] Interpretation and review of laboratory results Normal [facility] Ketones (U) [Mass/Vol] Negative Negat sulema mg/dL [facility] Leukocyte esterase Test strip Ql (U) Negative Negative Gabe/uL [facility] Nitrite Ql (U) Negative Negative [facility] th pH (U) 5.5 [pH] 5.0 - 8.0 pH [facility] Protein (U) [Mass/Vol] Negative Negat sulema mg/dL [facility] Specific gravity (U) [Rel density] 1.016 1.005 - 1.030 [facility] Urobilinogen (U) [Mass/Vol] Normal Normal (0-1) mg/dL [facility] Vital signson 12-06-2024 Heart rate 58 /min bpm [facility] Anion gap in Serum or Plasma Ordered By: Julio Nolasco on 12-04-2024 Anion gap [Moles/Vol] 11 mmol/L 5-15 [facility] BUN/creatinine ratioOrdered By: Julio Nolasco on 12-04-2024 Urea nitrogen/Creatinine [Mass ratio] 11.5 mg/mg 10-20 [facility] Carbon dioxide, total [Moles /volume] in Central venous bloodOrdered By: Julio Nolasco on 12-04-2024 CO2 [Moles/Vol] 23.5 mmol/L 21.0-32.0 [facility] Chloride assayOrdered By: Antwon Nolasco on 12-04-2024 Chloride [Moles/Vol] 104 mmol/L 98-108 [facility] GFR/1.73 sq M.predicted yobany g non-blacks MDRD (S/P/Bld) [Vol rate/Area]Ordered By: Julio Nolasco on 12-04-2024 Estimated GFR (MDRD) Non-Af Amer 65 >60 [facility] Comment on above: mL/min/1.73m2 CKD-EP I Creatinine Equation (2020) Potassium (Unsp spec) [Mass/ Vol]Ordered By: Julio Nolasco on 12-04-2024 Potassium [Moles/Vol] 4.3 mmol/L 3.3-5.1 [facility] Serum creatinine measurement (mass/volume)Ordered By: Julio Nolasco on 12-04-2024 Creatinine [Mass/Vol] 1.32 mg/dL High 0.70-1.20 [facility] Serum glucose measurement (m ass/volume)Ordered By: Julio Nolasco on 12-04-2024 Glucose [Mass/Vol] 105 mg/dL High 70-99 [facility] Serum or plasma calcium mervat urement (mass/volume)Ordered By: Julio Nolasco on 12-04-2024 Calcium [Mass/Vol] 10.7 mg/dL 7.6-11.0 [facility] Serum or plasma urea nitroge n measurement (mass/volume)Ordered By: Julio Nolasco on 12-04-2024 Urea nitrogen [Mass/Vol] 15 mg/dL 01-04 [facility] Sodium levelOrdered By: William Nolasco on 12-04-2024 Sodium [Moles/Vol] 139 mmol/L 133-145 [facility] CBC W Auto Differential pane l (Bld)on 11-27-2024 Basophils (Bld) [#/Vol] 0.09 10*3/uL [facility] Basophils/100 WBC (Bld) 0.7 % 0.0 - 2.0 % [facility] Eosinophils (Bld) [#/Vol] 0.58 10*3/uL [facility] Eosinophils/100 WBC (Bld) 4.7 % 0.0 - 6.0 % [facility] Erythrocyte distribution width (RBC) [Ratio] 16.4 % High 11.5 - 14.5 % [facility] Hematocrit (Bld) [Volume fraction] 25 % Low 41.0 - 52.0 % [facility] Hemoglobin (Bld) [Mass/Vol] 7.9 g/dL Low 13.5 - 17.5 g/dL [facility] Immature granulocytes (Bld) [#/Vol] 0.04 10*3/uL [facility] Immature granulocytes/100 WBC (Bld) 0.3 % 0.0 - 0.9 % [facility] Interpretation and review of laboratory results Abnormal [facility] Lymphocytes (Bld) [#/Vol] 1.78 10*3/uL [facility] Lymphocytes/100 WBC (Bld) 14.5 % 13.0 - 44.0 % [facility] MCH (RBC) [Entitic mass] 26.7 pg 26. 0 - 34.0 pg [facility] MCHC (RBC) [Mass/Vol] 31.6 g/dL Low 32.0 - 36.0 g/dL [facility] MCV (RBC) [Entitic vol] 85 fL 80 - 100 fL [facility] Monocytes (Bld) [#/Vol] 0.92 10*3/uL [facility] Monocytes/100 WBC (Bld) 7.5 % 2.0 - 10.0 % [facility] Neutrophils (Bld) [#/Vol] 8.88 10*3/uL High [facility] Neutrophils/100 WBC (Bld) 72.3 % 40.0 - 80.0 % [facility] Nucleated RBC/100 WBC (Bld) [Ratio] 0 % [facility] Platelets (Bld) [#/Vol] 715 10*3/uL High [facility] RBC (Bld) [#/Vol] 2.96 10*6/uL Low [facility] WBC (Bld) [#/Vol] 12.3 10*3/uL High [facility] Magnesiumon 11-27-2024 Magnesium [Mass/Vol] 1.75 mg/dL 1.60 - 2.40 mg/dL [facility] Magnesium [Mass/Vol]on 11-27 Interpretation and review of laboratory results Normal [facility] No Panel Informationon 11-27 [facility] Renal function 2000 panelon 11-27-2024 Albumin BCP dye [Mass/Vol] 3.2 g/dL Low 3.4 - 5.0 g/dL [facility] Anion gap [Moles/Vol] 14 mmol/L 10 - 2 0 mmol/L [facility] Calcium [Mass/Vol] 9.5 mg/dL 8.6 - 10. 6 mg/dL [facility] Chloride [Moles/Vol] 99 mmol/L 98 - 10 7 mmol/L [facility] CO2 [Moles/Vol] 27 mmol/L 21 - 32 mmol/L [facility] Creatinine [Mass/Vol] 1.38 mg/dL High 0.50 - 1.30 mg/dL [facility] GFR/1.73 sq M.predicted among non-blacks MDRD (S/P/Bld) [Vol rate/Area] 62 mL/min/{1.73_m2} - PINF [facility] Glucose [Mass/Vol] 139 mg/dL High 74 - 99 mg/dL [facility] Interpretation and review of laboratory results Abnormal [facility] Phosphate [Mass/Vol] 2.5 mg/dL 2.5 - 4 .9 mg/dL [facility] Potassium [Moles/Vol] 4 mmol/L 3.5 - 5.3 mmol/L [facility] Sodium [Moles/Vol] 136 mmol/L 136 - 145 mmol/L [facility] Urea nitrogen [Mass/Vol] 10 mg/dL 6 - 23 mg/d L [facility] Bacteria identified Cx Nom ( Bld)on 11-26-2024 Interpretation and review of laboratory results Normal [facility] CBC W Auto Differential pane l (Bld)on 11-26-2024 Basophils (Bld) [#/Vol] 0.1 10*3/uL [facility] Basophils/100 WBC (Bld) 0.8 % 0.0 - 2.0 % [facility] Eosinophils (Bld) [#/Vol] 0.51 10*3/uL [facility] Eosinophils/100 WBC (Bld) 4.2 % 0.0 - 6.0 % [facility] Erythrocyte distribution width (RBC) [Ratio] 16.2 % High 11.5 - 14.5 % [facility] Hematocrit (Bld) [Volume fraction] 26.6 % Low 41.0 - 52.0 % [facility] Hemoglobin (Bld) [Mass/Vol] 8.3 g/dL Low 13.5 - 17.5 g/dL [facility] Immature granulocytes (Bld) [#/Vol] 0.05 10*3/uL [facility] Immature granulocytes/100 WBC (Bld) 0.4 % 0.0 - 0.9 % [facility] Interpretation and review of laboratory results Abnormal [facility] Lymphocytes (Bld) [#/Vol] 1.6 10*3/uL [facility] Lymphocytes/100 WBC (Bld) 13.3 % 13.0 - 44.0 % [facility] MCH (RBC) [Entitic mass] 26.4 pg 26. 0 - 34.0 pg [facility] MCHC (RBC) [Mass/Vol] 31.2 g/dL Low 32.0 - 36.0 g/dL [facility] MCV (RBC) [Entitic vol] 85 fL 80 - 100 fL [facility] Monocytes (Bld) [#/Vol] 1.2 10*3/uL High [facility] Monocytes/100 WBC (Bld) 9.9 % 2.0 - 10.0 % [facility] Neutrophils (Bld) [#/Vol] 8.61 10*3/uL High [facility] Neutrophils/100 WBC (Bld) 71.4 % 40.0 - 80.0 % [facility] Nucleated RBC/100 WBC (Bld) [Ratio] 0 % [facility] Platelets (Bld) [#/Vol] 780 10*3/uL High [facility] RBC (Bld) [#/Vol] 3.14 10*6/uL Low [facility] WBC (Bld) [#/Vol] 12.1 10*3/uL [facility] Laboratory - Microbiology an d Antimicrobial susceptibilityon 11-26-2024 Bacteria identified Cx Nom (Bld) No growth at 4 days - FINAL REPORT [facility] Magnesiumon 11-26-2024 Magnesium [Mass/Vol] 2.07 mg/dL 1.60 - 2.40 mg/dL [facility] Magnesium [Mass/Vol]on 11-26 Interpretation and review of laboratory results Normal [facility] No Panel Informationon 11-26 [facility] Renal function 2000 panelon 11-26-2024 Albumin BCP dye [Mass/Vol] 3.4 g/dL 3.4 - 5.0 g/dL [facility] Anion gap [Moles/Vol] 17 mmol/L 10 - 2 0 mmol/L [facility] Calcium [Mass/Vol] 9.2 mg/dL 8.6 - 10. 6 mg/dL [facility] Chloride [Moles/Vol] 101 mmol/L 98 - 10 7 mmol/L [facility] CO2 [Moles/Vol] 24 mmol/L 21 - 32 mmol/L [facility] Creatinine [Mass/Vol] 1.22 mg/dL 0.50 - 1.30 mg/dL [facility] GFR/1.73 sq M.predicted among non-blacks MDRD (S/P/Bld) [Vol rate/Area] 72 mL/min/{1.73_m2} - PINF [facility] Glucose [Mass/Vol] 110 mg/dL High 74 - 99 mg/dL [facility] Interpretation and review of laboratory results Abnormal [facility] Phosphate [Mass/Vol] 2.9 mg/dL 2.5 - 4 .9 mg/dL [facility] Potassium [Moles/Vol] 4.4 mmol/L 3.5 - 5.3 mmol/L [facility] Sodium [Moles/Vol] 138 mmol/L 136 - 145 mmol/L [facility] Urea nitrogen [Mass/Vol] 10 mg/dL 6 - 23 mg/d L [facility] Bacteria identified Cx Nom ( Unsp spec)on 11-25-2024 Interpretation and review of laboratory results Abnormal [facility] Work Phone: Microscopic observation Gram stain Nom (Unsp spec) (1+) Rare Polymorphonuclear leukocytes Abnormal [facility] Work Phone: Microscopic observation Gram stain Nom (Unsp spec) (4+) Abundant Mixed Gram positive and Gram negative bacteria Abnormal [facility] Work Phone: [facility] Work Phone: CBC W Auto Differential pane l (Bld)on 11-25-2024 Basophils (Bld) [#/Vol] 0.08 10*3/uL [facility] Basophils/100 WBC (Bld) 0.8 % 0.0 - 2.0 % [facility] Eosinophils (Bld) [#/Vol] 0.49 10*3/uL [facility] Eosinophils/100 WBC (Bld) 5.2 % 0.0 - 6.0 % [facility] Erythrocyte distribution width (RBC) [Ratio] 16.5 % High 11.5 - 14.5 % [facility] Hematocrit (Bld) [Volume fraction] 26.3 % Low 41.0 - 52.0 % [facility] Hemoglobin (Bld) [Mass/Vol] 8.1 g/dL Low 13.5 - 17.5 g/dL [facility] Immature granulocytes (Bld) [#/Vol] 0.03 10*3/uL [facility] Immature granulocytes/100 WBC (Bld) 0.3 % 0.0 - 0.9 % [facility] Interpretation and review of laboratory results Abnormal [facility] Lymphocytes (Bld) [#/Vol] 1.75 10*3/uL [facility] Lymphocytes/100 WBC (Bld) 18.5 % 13.0 - 44.0 % [facility] MCH (RBC) [Entitic mass] 26.5 pg 26. 0 - 34.0 pg [facility] MCHC (RBC) [Mass/Vol] 30.8 g/dL Low 32.0 - 36.0 g/dL [facility] MCV (RBC) [Entitic vol] 86 fL 80 - 100 fL [facility] Monocytes (Bld) [#/Vol] 1.08 10*3/uL High [facility] Monocytes/100 WBC (Bld) 11.4 % 2.0 - 10.0 % [facility] Neutrophils (Bld) [#/Vol] 6.01 10*3/uL [facility] Neutrophils/100 WBC (Bld) 63.8 % 40.0 - 80.0 % [facility] Nucleated RBC/100 WBC (Bld) [Ratio] 0 % [facility] Platelets (Bld) [#/Vol] 747 10*3/uL High [facility] RBC (Bld) [#/Vol] 3.06 10*6/uL Low [facility] WBC (Bld) [#/Vol] 9.4 10*3/uL [facility] Magnesiumon 11-25-2024 Magnesium [Mass/Vol] 1.95 mg/dL 1.60 - 2.40 mg/dL [facility] Magnesium [Mass/Vol]on 11-25 Interpretation and review of laboratory results Normal [facility] No Panel Informationon 11-25 [facility] Renal function 2000 panelon 11-25-2024 Albumin BCP dye [Mass/Vol] 3.1 g/dL Low 3.4 - 5.0 g/dL [facility] Anion gap [Moles/Vol] 14 mmol/L 10 - 2 0 mmol/L [facility] Calcium [Mass/Vol] 9 mg/dL 8.6 - 10. 6 mg/dL [facility] Chloride [Moles/Vol] 100 mmol/L 98 - 10 7 mmol/L [facility] CO2 [Moles/Vol] 27 mmol/L 21 - 32 mmol/L [facility] Creatinine [Mass/Vol] 1.29 mg/dL 0.50 - 1.30 mg/dL [facility] GFR/1.73 sq M.predicted among non-blacks MDRD (S/P/Bld) [Vol rate/Area] 67 mL/min/{1.73_m2} - PINF [facility] Glucose [Mass/Vol] 101 mg/dL High 74 - 99 mg/dL [facility] Interpretation and review of laboratory results Abnormal [facility] Phosphate [Mass/Vol] 2.7 mg/dL 2.5 - 4 .9 mg/dL [facility] Potassium [Moles/Vol] 3.6 mmol/L 3.5 - 5.3 mmol/L [facility] Sodium [Moles/Vol] 137 mmol/L 136 - 145 mmol/L [facility] Urea nitrogen [Mass/Vol] 10 mg/dL 6 - 23 mg/d L [facility] Tissue/Wound Culture/Smearon 11-25-2024 Bacteria identified Cx Nom (Unsp spec) (4+) Abundant Mixed Gram-Positive and Gram-Negative Bacteria [facility] Work Phone: Bacteria identified Cx Nom ( Unsp spec)on 11-24-2024 Beta lactamase organism identified Nom (Isol) Positive [facility] Work Phone: Interpretation and review of laboratory results Abnormal [facility] Work Phone: Microscopic observation Gram stain Nom (Unsp spec) (3+) Moderate Polymorphonuclear leukocytes Abnormal [facility] Work Phone: Microscopic observation Gram stain Nom (Unsp spec) Negative Abnormal [facility] Work Phone: [facility] Work Phone: Bacteria identified Cx Nom ( Unsp spec)Ordered By: Mari Monique on 11-24-2024 Interpretation and review of laboratory results Abnormal [facility] Microscopic observation Gram stain Nom (Unsp spec) No polymorphonuclear leukocytes seen Abnormal [facility] Microscopic observation Gram stain Nom (Unsp spec) (4+) Abundant Mixed Gram positive and Gram negative bacteria Abnormal [facility] CBC W Auto Differential pane l (Bld)on 11-24-2024 Basophils (Bld) [#/Vol] 0.1 10*3/uL [facility] Basophils/100 WBC (Bld) 0.9 % 0.0 - 2.0 % [facility] Eosinophils (Bld) [#/Vol] 0.52 10*3/uL [facility] Eosinophils/100 WBC (Bld) 4.9 % 0.0 - 6.0 % [facility] Erythrocyte distribution width (RBC) [Ratio] 16.1 % High 11.5 - 14.5 % [facility] Hematocrit (Bld) [Volume fraction] 28.6 % Low 41.0 - 52.0 % [facility] Hemoglobin (Bld) [Mass/Vol] 8.7 g/dL Low 13.5 - 17.5 g/dL [facility] Immature granulocytes (Bld) [#/Vol] 0.03 10*3/uL [facility] Immature granulocytes/100 WBC (Bld) 0.3 % 0.0 - 0.9 % [facility] Interpretation and review of laboratory results Abnormal [facility] Lymphocytes (Bld) [#/Vol] 1.84 10*3/uL [facility] Lymphocytes/100 WBC (Bld) 17.2 % 13.0 - 44.0 % [facility] MCH (RBC) [Entitic mass] 26.4 pg 26. 0 - 34.0 pg [facility] MCHC (RBC) [Mass/Vol] 30.4 g/dL Low 32.0 - 36.0 g/dL [facility] MCV (RBC) [Entitic vol] 87 fL 80 - 100 fL [facility] Monocytes (Bld) [#/Vol] 1.11 10*3/uL High [facility] Monocytes/100 WBC (Bld) 10.4 % 2.0 - 10.0 % [facility] Neutrophils (Bld) [#/Vol] 7.12 10*3/uL [facility] Neutrophils/100 WBC (Bld) 66.3 % 40.0 - 80.0 % [facility] Nucleated RBC/100 WBC (Bld) [Ratio] 0 % [facility] Platelets (Bld) [#/Vol] 818 10*3/uL High [facility] RBC (Bld) [#/Vol] 3.29 10*6/uL Low [facility] WBC (Bld) [#/Vol] 10.7 10*3/uL [facility] Magnesiumon 11-24-2024 Magnesium [Mass/Vol] 1.88 mg/dL 1.60 - 2.40 mg/dL [facility] Magnesium [Mass/Vol]on 11-24 Interpretation and review of laboratory results Normal [facility] No Panel Informationon 11-24 [facility] Renal function 2000 panelon 11-24-2024 Albumin BCP dye [Mass/Vol] 3.2 g/dL Low 3.4 - 5.0 g/dL [facility] Anion gap [Moles/Vol] 11 mmol/L 10 - 2 0 mmol/L [facility] Calcium [Mass/Vol] 9.1 mg/dL 8.6 - 10. 6 mg/dL [facility] Chloride [Moles/Vol] 99 mmol/L 98 - 10 7 mmol/L [facility] CO2 [Moles/Vol] 30 mmol/L 21 - 32 mmol/L [facility] Creatinine [Mass/Vol] 1.38 mg/dL High 0.50 - 1.30 mg/dL [facility] GFR/1.73 sq M.predicted among non-blacks MDRD (S/P/Bld) [Vol rate/Area] 62 mL/min/{1.73_m2} - PINF [facility] Glucose [Mass/Vol] 109 mg/dL High 74 - 99 mg/dL [facility] Interpretation and review of laboratory results Abnormal [facility] Phosphate [Mass/Vol] 3.3 mg/dL 2.5 - 4 .9 mg/dL [facility] Potassium [Moles/Vol] 3.8 mmol/L 3.5 - 5.3 mmol/L [facility] Sodium [Moles/Vol] 136 mmol/L 136 - 145 mmol/L [facility] Urea nitrogen [Mass/Vol] 15 mg/dL 6 - 23 mg/d L [facility] Tissue/Wound Culture/Smearon 11-24-2024 Bacteria identified Cx Nom (Unsp spec) Negative [facility] Work Phone: Bacteria identified Cx Nom (Unsp spec) (4+) Abundant Mixed Anaerobic Bacteria [facility] Work Phone: Tissue/Wound Culture/SmearOr dered By: Mari Monique on 11-24-2024 Bacteria identified Cx Nom (Unsp spec) (4+) Abundant Mixed Gram-Positive and Gram-Negative Bacteria [facility] CBC W Auto Differential pane l (Bld)on 11-23-2024 Basophils (Bld) [#/Vol] 0.11 10*3/uL High [facility] Basophils/100 WBC (Bld) 0.8 % 0.0 - 2.0 % [facility] Eosinophils (Bld) [#/Vol] 0.5 10*3/uL [facility] Eosinophils/100 WBC (Bld) 3.5 % 0.0 - 6.0 % [facility] Erythrocyte distribution width (RBC) [Ratio] 16.3 % High 11.5 - 14.5 % [facility] Hematocrit (Bld) [Volume fraction] 30.1 % Low 41.0 - 52.0 % [facility] Hemoglobin (Bld) [Mass/Vol] 9.4 g/dL Low 13.5 - 17.5 g/dL [facility] Immature granulocytes (Bld) [#/Vol] 0.08 10*3/uL [facility] Immature granulocytes/100 WBC (Bld) 0.6 % 0.0 - 0.9 % [facility] Interpretation and review of laboratory results Abnormal [facility] Lymphocytes (Bld) [#/Vol] 1.65 10*3/uL [facility] Lymphocytes/100 WBC (Bld) 11.5 % 13.0 - 44.0 % [facility] MCH (RBC) [Entitic mass] 26.8 pg 26. 0 - 34.0 pg [facility] MCHC (RBC) [Mass/Vol] 31.2 g/dL Low 32.0 - 36.0 g/dL [facility] MCV (RBC) [Entitic vol] 86 fL 80 - 100 fL [facility] Monocytes (Bld) [#/Vol] 1.59 10*3/uL High [facility] [facility] Monocytes/100 WBC (Bld) 11.1 % 2.0 - 10.0 % [facility] Neutrophils (Bld) [#/Vol] 10.38 10*3/uL High [facility] Neutrophils/100 WBC (Bld) 72.5 % 40.0 - 80.0 % [facility] Nucleated RBC/100 WBC (Bld) [Ratio] 0 % [facility] Platelets (Bld) [#/Vol] 844 10*3/uL High [facility] RBC (Bld) [#/Vol] 3.51 10*6/uL [facility] ([facility]ld[facility] [#/Vol] 14.3 10*3/uL High Unive [facility] Magnesiumon 11-23-2024 Magnesium [Mass/Vol] 1.94 mg/dL 1.60 - 2.40 mg/dL [facility] Magnesium [Mass/Vol]on 11-23 Interpretation and review of laboratory results Normal [facility] No Panel Informationon 11-23 [facility] Renal function 2000 panelon 11-23-2024 Albumin BCP dye [Mass/Vol] 3.4 g/dL 3.4 - 5.0 g/dL [facility] Anion gap [Moles/Vol] 15 mmol/L 10 - 2 0 mmol/L [facility] Calcium [Mass/Vol] 9.3 mg/dL 8.6 - 10. 6 mg/dL [facility] Chloride [Moles/Vol] 99 mmol/L 98 - 10 7 mmol/L [facility] CO2 [Moles/Vol] 25 mmol/L 21 - 32 mmol/L [facility] Creatinine [Mass/Vol] 1.36 mg/dL High 0.50 - 1.30 mg/dL [facility] GFR/1.73 sq M.predicted among non-blacks MDRD (S/P/Bld) [Vol rate/Area] 63 mL/min/{1.73_m2} - PINF [facility] Glucose [Mass/Vol] 101 mg/dL High 74 - 99 mg/[facility] Interpretation and review of laboratory results Abnormal [facility] Phosphate [Mass/Vol] 3 mg/dL 2.5 - 4 .9 mg/dL [facility] Potassium [Moles/Vol] 4 mmol/L 3.5 - 5.3 mmol/L [facility] Sodium [Moles/Vol] 135 mmol/L Low 136 - 145 mmol/L [facility] Urea nitrogen [Mass/Vol] 14 mg/dL 6 - 23 mg/d L [facility] CBC W Auto Differential pane l (Bld)on 11-22-2024 Basophils (Bld) [#/Vol] 0.09 10*3/uL [facility] Basophils/100 WBC (Bld) 0.7 % 0.0 - 2.0 % [facility] Eosinophils (Bld) [#/Vol] 0.36 10*3/uL [facility] Eosinophils/100 WBC (Bld) 2.7 % 0.0 - 6.0 % [facility] Erythrocyte distribution width (RBC) [Ratio] 16 % High 11.5 - 14.5 % [facility] Hematocrit (Bld) [Volume fraction] 27.8 % Low 41.0 - 52.0 % [facility] Hemoglobin (Bld) [Mass/Vol] 8.7 g/dL Low 13.5 - 17.5 g/dL [facility] Immature granulocytes (Bld) [#/Vol] 0.04 10*3/uL [facility] Immature granulocytes/100 WBC (Bld) 0.3 % 0.0 - 0.9 % [facility] Interpretation and review of laboratory results Abnormal [facility] Lymphocytes (Bld) [#/Vol] 1.44 10*3/uL [facility] Lymphocytes/100 WBC (Bld) 10.7 % 13.0 - 44.0 % [facility] MCH (RBC) [Entitic mass] 26.9 pg 26. 0 - 34.0 pg [facility] MCHC (RBC) [Mass/Vol] 31.3 g/dL Low 32.0 - 36.0 g/dL [facility] MCV (RBC) [Entitic vol] 86 fL 80 - 100 fL [facility] Monocytes (Bld) [#/Vol] 1.28 10*3/uL High [facility] Monocytes/100 WBC (Bld) 9.5 % 2.0 - 10.0 % [facility] Neutrophils (Bld) [#/Vol] 10.28 10*3/uL High [facility] Neutrophils/100 WBC (Bld) 76.1 % 40.0 - 80.0 % [facility] Nucleated RBC/100 WBC (Bld) [Ratio] 0 % [facility] Platelets (Bld) [#/Vol] 780 10*3/uL High [facility] RBC (Bld) [#/Vol] 3.24 10*6/uL [facility] W[facility] ([facility]ld[facility] [#/Vol] 13.5 10*3/uL High [facility] Magnesiumon 11-22-2024 Magnesium [Mass/Vol] 2 mg/dL 1.60 - 2.40 mg/dL [facility] Magnesium [Mass/Vol]on 11-22 Interpretation and review of laboratory results Normal [facility] No Panel Informationon 11-22 [facility] Renal function 2000 panelon 11-22-2024 Albumin BCP dye [Mass/Vol] 3.4 g/dL 3.4 - 5.0 g/dL [facility] Anion gap [Moles/Vol] 13 mmol/L 10 - 2 0 mmol/L [facility] Calcium [Mass/Vol] 9.3 mg/dL 8.6 - 10. 6 mg/dL [facility] Chloride [Moles/Vol] 100 mmol/L 98 - 10 7 mmol/L [facility] CO2 [Moles/Vol] 25 mmol/L 21 - 32 mmol/L [facility] Creatinine [Mass/Vol] 1.2 mg/dL 0.50 - 1.30 mg/dL [facility] GFR/1.73 sq M.predicted among non-blacks MDRD (S/P/Bld) [Vol rate/Area] 73 mL/min/{1.73_m2} - PINF [facility] Glucose [Mass/Vol] 105 mg/dL High 74 - 99 mg/dL [facility] Interpretation and review of laboratory results Abnormal [facility] Phosphate [Mass/Vol] 2.5 mg/dL 2.5 - 4 .9 mg/dL [facility] Potassium [Moles/Vol] 4.1 mmol/L 3.5 - 5.3 mmol/L [facility] Sodium [Moles/Vol] 134 mmol/L Low 136 - 145 mmol/L [facility] Urea nitrogen [Mass/Vol] 15 mg/dL 6 - 23 mg/d L [facility] CBC W Auto Differential pane l (Bld)on 11-21-2024 Basophils (Bld) [#/Vol] 0.09 10*3/uL [facility] Basophils/100 WBC (Bld) 0.7 % 0.0 - 2.0 % [facility] Eosinophils (Bld) [#/Vol] 0.38 10*3/uL [facility] Eosinophils/100 WBC (Bld) 3.1 % 0.0 - 6.0 % [facility] Erythrocyte distribution width (RBC) [Ratio] 16 % High 11.5 - 14.5 % [facility] Hematocrit (Bld) [Volume fraction] 26.9 % Low 41.0 - 52.0 % [facility] Hemoglobin (Bld) [Mass/Vol] 8.6 g/dL Low 13.5 - 17.5 g/dL [facility] Immature granulocytes (Bld) [#/Vol] 0.04 10*3/uL [facility] Immature granulocytes/100 WBC (Bld) 0.3 % 0.0 - 0.9 % [facility] Interpretation and review of laboratory results Abnormal [facility] Lymphocytes (Bld) [#/Vol] 1.38 10*3/uL [facility] Lymphocytes/100 WBC (Bld) 11.1 % 13.0 - 44.0 % [facility] MCH (RBC) [Entitic mass] 27.2 pg 26. 0 - 34.0 pg [facility] MCHC (RBC) [Mass/Vol] 32 g/dL 32.0 - 36.0 g/dL [facility] MCV (RBC) [Entitic vol] 85 fL 80 - 100 fL [facility] Monocytes (Bld) [#/Vol] 1.2 10*3/uL High [facility] Monocytes/100 WBC (Bld) 9.7 % 2.0 - 10.0 % [facility] Neutrophils (Bld) [#/Vol] 9.33 10*3/uL High [facility] Neutrophils/100 WBC (Bld) 75.1 % 40.0 - 80.0 % [facility] Nucleated RBC/100 WBC (Bld) [Ratio] 0 % [facility] Platelets (Bld) [#/Vol] 745 10*3/uL High [facility] RBC (Bld) [#/Vol] 3.16 10*6/uL Low Unive [facility] WBC (Bld) [#/Vol] 12.4 10*3/uL High [facility] Tyhee/lambda free, serum; Cl [facility]; KLF[facility] - Miscellaneous TestOrdered By: Deborah Youngblood on 11-21-2024 Scan Result See Scanned Result [facility] Magnesiumon 11-21-2024 Magnesium [Mass/Vol] 1.86 mg/dL 1.60 - 2.40 mg/dL [facility] Magnesium [Mass/Vol]on 11-21 Interpretation and review of laboratory results Normal [facility] No Panel Informationon 11-21 [facility] Renal function 2000 panelon 11-21-2024 Albumin BCP dye [Mass/Vol] 3.2 g/dL Low 3.4 - 5.0 g/dL [facility] Anion gap [Moles/Vol] 16 mmol/L 10 - 2 0 mmol/L [facility] Calcium [Mass/Vol] 9.3 mg/dL 8.6 - 10. 6 mg/dL [facility] Chloride [Moles/Vol] 102 mmol/L 98 - 10 7 mmol/L [facility] CO2 [Moles/Vol] 23 mmol/L 21 - 32 mmol/L [facility] Creatinine [Mass/Vol] 1.29 mg/dL 0.50 - 1.30 mg/dL [facility] GFR/1.73 sq M.predicted among non-blacks MDRD (S/P/Bld) [Vol rate/Area] 67 mL/min/{1.73_m2} - PINF [facility] Glucose [Mass/Vol] 96 mg/dL 74 - 99 mg/dL [facility] Interpretation and review of laboratory results Abnormal [facility] Phosphate [Mass/Vol] 2.7 mg/dL 2.5 - 4 .9 mg/dL [facility] Potassium [Moles/Vol] 4 mmol/L 3.5 - 5.3 mmol/L [facility] Sodium [Moles/Vol] 137 mmol/L 136 - 145 mmol/L [facility] Urea nitrogen [Mass/Vol] 14 mg/dL 6 - 23 mg/d L [facility] CBC W Auto Differential pane l (Bld)on 11-20-2024 Basophils (Bld) [#/Vol] 0.08 10*3/uL [facility] Basophils/100 WBC (Bld) 0.7 % 0.0 - 2.0 % [facility] Eosinophils (Bld) [#/Vol] 0.45 10*3/uL [facility] Eosinophils/100 WBC (Bld) 4 % 0.0 - 6.0 % [facility] Erythrocyte distribution width (RBC) [Ratio] 16.3 % High 11.5 - 14.5 % [facility] Hematocrit (Bld) [Volume fraction] 28.4 % Low 41.0 - 52.0 % [facility] Hemoglobin (Bld) [Mass/Vol] 8.6 g/dL Low 13.5 - 17.5 g/dL [facility] Immature granulocytes (Bld) [#/Vol] 0.05 10*3/uL [facility] Immature granulocytes/100 WBC (Bld) 0.4 % 0.0 - 0.9 % [facility] Interpretation and review of laboratory results Abnormal [facility] Lymphocytes (Bld) [#/Vol] 1.78 10*3/uL [facility] Lymphocytes/100 WBC (Bld) 15.6 % 13.0 - 44.0 % [facility] MCH (RBC) [Entitic mass] 26.9 pg 26. 0 - 34.0 pg [facility] MCHC (RBC) [Mass/Vol] 30.3 g/dL Low 32.0 - 36.0 g/dL [facility] MCV (RBC) [Entitic vol] 89 fL 80 - 100 fL [facility] Monocytes (Bld) [#/Vol] 1.18 10*3/uL High [facility] Monocytes/100 WBC (Bld) 10.4 % 2.0 - 10.0 % [facility] Neutrophils (Bld) [#/Vol] 7.84 10*3/uL High [facility] Neutrophils/100 WBC (Bld) 68.9 % 40.0 - 80.0 % [facility] Nucleated RBC/100 WBC (Bld) [Ratio] 0 % [facility] Platelets (Bld) [#/Vol] 771 10*3/uL High [facility] RBC (Bld) [#/Vol] 3.2 10*6/uL [facility] WBC (Bld) [#/Vol] 11.4 10*3/uL [facility] Dermatopathology- DERM LABOr dered By: James Bustamante on 11-20-2024 Laboratory comment [employer] (Report) [id number] bGFuZzEwMzNcZnRuYmpc xZVwTAslqpKmLUevn4Wd H5OxBiYqERujqgVjCENy TkkjpbnfKCEdNFM2cgQh VDAuFFwcDRKdDRgsIc5m lTCfvAhgLzZzUVXgo2pq nxZNMRsqEZBZRTm7i6ju HTCvDdH4jNFiYNneO7my ctTsuDCwC7Teu5YtSBl3 qL59QXVnzB5jeUYnPKue zlLdImE0GCaaLLZtDfE0 ZGMbyETwVPHuA7hdQUFq XGdyZWVuMFxibHVlMCA7 fYejh2J6sKRwuXEqsGxo JwQkRxSbDtNIf9YmZEy6 cKqpH2NqOJQrGgH8gNLa UGFyYWdyYXBoIEZvbnQ7 xQ39QHrofrH9hGEpn3He f25od303sC2dcYHuRTA4 MTIyNDBccGFwZXJoMTU4 XYBuiQEgJ8krCyYabEFo Z5KpQcNzpHRoH9QcGlCn rLOiI5AjFsUwsUCfEJQg rUI9UViku309ZAP1LlXj MS4cI3Yvs6Q1gP4olRTh CLQbuXBcQzGqJGRfbf4i aZRmSGlsp1QbUXF7ybZ6 sOAhuJEfGTWzMJ13Bhqy x2UsSmqoCZY0MPItqpYc w5Dqp0kvXwClrpNqQ7lx I2LhCNZkYOIaNDEyUvAh zoNvu2Taj9UgfBOvjEf5 g6tqURBhVWCpdKfbz7we PLE6TYSrA4S2uYWgr9fh OJgcCPHyzDW2leN7UDgj QKYnoxY5ctL7TBwnYEUa jQL1qgL8WIxkTOBeIcZ0 xcU4VFlqAPVnLJO2IyQb RCDrc8NbddnqQqTlk7Ad tORzHHrzO12cq347MPNr kbBrZ9phaWHarsnpfOVu mhkuGOwgqqC2ARRaOZFt YWluXGYxXGZzMjBcbGFu ZzEwMzNcaGljaFxmMVxk SvClHOYvRTefW5mnFbUy XrZeELJUsBK2cQKap0wi ciL2ySFjAE6uTSPttLUs voSvv7T8LRY2mSUnnC3n dROvNYQjvSYsroHheg91 cLTelUY5WFHqOSTkhPHt oB7bODQzRRUWvK5twVUJ vgAgfaKtBFHrsGovqk8I gLQqnv8jwDObA5KdvGyh aWVzIHRoYXQgdGhleSBo UHGrLAHmhyaxq7OlDXDo bXVmT1WbVR2sYKGler36 [facility] Work Phone: Pathology report addendum [employer] (Spec) [id number] PaauwjCkLAKjlMScP8Qi lnmzUTysAA6lWL7pgJwf aPMdvVQePKKpEwQrs0bw a212sGWqv2mmRGTFbfsq hXe2eDtxO85aa4Q4Gmvo K04ikPRwKUK9PNNyRIAi qJTiDBTtZCA4YLVfcRLm T5gkZNBfPG4yqoosWXyl MSooSIKtpXO7PULsdHQq V2ChUNErPQsgVPMwcow0 YeEwHe4mpUSfaZguEUst YXJkXHBsYWluXGZzMjAg XXoPYzCUrJM7hTLjwxGc tXAxjZIoNfJ5lLGkJ8my ledwlHRpITNoR74xH02n AlZjALJ2DPqxANattbBn DSMum4CqCHCfLE7iUUkn MS4gJ8D5lUCbYAGjuyEo rHcne2vkCgIGkCufh4sa f0CoorArIY8hg6VcToPk ZXhjbHVkZWQgYXMgdGhl AY9zil1fkTU0BN0jCPJz DGCovPQenZ2sruQtipLg oEYbmQ18mvUwYWjeQPUc wtKvhi3pUY2ruDFgIQRo cn0= [facility] Work Phone: Pathology report Cancer [facility] Work Phone: Pathology report final diagnosis Narrative [id number] OqmujiEwXORacGJfQ0Hd juqfHMaxMD5bXD6dfKzm hQYssSTtLRPwLrIex6ro v789lQClm7hrQKUYimas wPr9dRdnG92oi3K7Dqsh E48dcTWuZAV9FPDxYTSj dKIbHOPhNGK4OPPkfGJs K3zwNQJrQJ1mtnqlEXoa EOlmNZIvxOF8NPZzxTEe A1FmKKBuNCdrWRHqpse5 EoOzEm3plREpsTclIYvi YXJkXHBsYWluXGZzMjAg TF0yB9qDQcvrAKoGAQGa UFJPWElNQUwsIFBVTkNI AZLYQ3OHOYdtnUBrIOZi JQ7CVYAFPjUfV1PSDQ9D DLOtS9SFSIHFWNQMVR6F TTYvCEngzy91EVR4r7vt aWVsZHtcKlxmbGRpbnN0 TOwQZJTUHIcXCrPxFV8e PJvGW8SNXBwOVauuRBF7 B1ogxOS5o0swlKFdc9m7 KBtxQCX6mJwHWMm8DFQb AJsgd1qzXSYqLNubz5Qn NYcFCEVCCK6ABP0kgYH8 XKcUFZYGLPnuIJF3H3au fUB4l8olaCWre3l6DUxs IJU9lIvrzCQallqnXMAa MjAgIERJRkZFUkVOVElB VEVELCBccHJvdGVjdHtc MdrirTG6EVxnAzfosR0n dCBIWVBFUkxJTksgbmFt KU4XGZKWEpSTIR02Mht7 PWn9VtotrQggXdragwXj tIBnRiImnP0XTsWVNK1I SM6ZXRSQIVODXXIXLBpC OiXGDK5SHgzURudaQyef nDP5BNfcUdyupC5odHGO WVBQCgtJZirfbdMyDT6C NZILGC4SdPJ1MTT6mST2 Tr40UKOrOAWmfVFqYXpw W240MCPmVIqlPSOpGpGg MWDdIARSJEVRO4LDJlwm QRLjsHIfOAKlMN3gtQL9 SM2uQHCnpSDkns1ecKQy zZHlL8imPO45FXhwWISl YN9rROWboGSzfXGhnESx eCFlyN14bbLsAZpgDYTi joOpde6xOOLbetXxKCIw cmVkIGFsdGhvdWdoIHRo MFYaQHVtOI4iWPYovTOd jm6adKDylLFiM7bsHD66 TAMgoUFoaeT6qQKpyU0g s1ylvWkgqGpoi1SjDNMg FMKzd9JmkGquRRNpiBEg v0DqTFRhaHmoN7FvS7cr f20hYrnaBSQobBLqXTwn QGSprrxdHKAERnJBN4kB LCBVTENFUiBESVNUQUws KUOVXoGZDNSUP7JOMQqx pABwUSIzDI2HPDRYIjIi G7HLGE3XETWlJ8QFROTK LRFVVY8GVGPhLRyeao79 CVY0e5qcuNJsRDrwTlkx eJXvpnL8ELqXXJESIAcU CzKaXY1oONeJS0OLNJfV VhdoQDG7A3cnwPS8k5qq mEBdr6d8BAngWXN0jZqR LEp1BUHmEYtye5lhGRBa TSxic3GsIImSKUFWTE5K DH1jjSV0FPdRWPRKDVoo YSX9R5pocMA9f7sfdADb m6c2FAjlKJP7oBxmlVUl wsslTKGwCeKgXYSSBM0N REVSQVRFTFkgRElGRkVS KV4EDCUGGULsXNjwdr58 SBM1m9uzuBOuDIdkSgql mFLpjoS6OAdAWBGCHQzQ VcGxPK2jPSvUJ7FZUTmC MqwcPAqbARb1fWE8o9ku hOKtw5h1DHdeCDQ8qCPU YXUIMrSuC75xUTaILVQC BDFxCJ6ZRAGTSwhERWQN LFsaRBPXM4bJh0xpkXZp WEbpVoupuRUjqcD2YYtE NBEBYRwVZlEtXL1jFPtJ K8VZJiC4Jam7GFv9ZVn9 fXtcZmxkcnNsdCBcJzFj uW3ftJoolM7bTgsascCt CYirH6HNCE7ADSGpQHVs lnxoHSWkKwZaTx71USsl Gb0gNCTzZRQywEBtWYC5 qZVloY8mubHjbOWxz3Ut vyKzfiRsUWDcMNRlm1Ao bHynPDRfzBLvm0IzEFSz hNznH5RcX3nlt38oIQVf tm6wnBZkXVZlaQLgvMYw EA2sTKocuaQhkVQ2LGRt CTBcIn5gZGxjBMScKJSz FwY8LYPorEldzzVjwuBz q3hilh9afDHiJBUvdvyu aFW4UFUzGwh9LvGhxAyn Msx1FLqjPTwoBQQrZOD1 da6hcQAkzJb0BTFzD69p BNKzeTPaPermX91dTLNI k34xOIKYEEYnPtslOOHl qRbqZWFsZYxcyM2fAASm XHBhclxwYXJkXGJccGFy DXYzC15PHvOZCXZGG20A QKOLOILBZ2YBJ9mULTV4 GJBnoCG7JG4xDDxpFLiy RYZuOyf1AXQ9Ny1tJvY0 THX6jKS4YoMFVLEUNCuF S3ZfUDDNENQHQHViCO8H FKuYSTVIIIACR91ZCVNZ FYRIC5NCL1iEDCmRTUBU ZVRZY84TKLBYZKCFC4SA WSFLTFAEMIoVUQIGYf5K EEDBJETETD3MZHsIQfWy XHtERVJNUEFUSFNDQzoz LOT0F8n6Ilw2WOSzuNHq bVqjTHHyfM81Liq5UNcl cVWzf5MULh6AORCOE2QV KbK3WVPfXA55AIcyBYDo hNK7gR7aoammtcerSOsx RMj9PFYRGLGBEQ7LFYTC K09YYJNMCHFAN3TFYGMS EvITQUKMF94QXGUYQNUJ O0WYK9zHKBCRItIRJUIJ H47CGZPNMKLIW8DQBEAL JTQGRoPXMlZYDB0LSUNJ FKNKES2CUAcAAyBdCQWD I0OLVyHTL2khFTCZUIQC BTRqYY1SvO== [facility] Work Phone: Pathology report gross observation Narrative a1ygxQTgRMVfqGRxQRyo JgxvcjWgXTZtrKQoM8Dy usedYGkrJO6jIM1wgHub sZVbaWZePKRmXcVfh4gw t310nNPvo8nmEFYXmirr aCw0pLmpU27ea2R6Qytk D56qaUOyJTJ0RFLdMSNb vJKlDPKxVUZ7LPJfiVSo L9haIFCaGK3qnyncGFok ZYueJTVkyMP3GNQjsYQg U8GaLFQcOZatDUGcddt5 GxSdLp3xyUGwxMqxHDyu ZzuzgPeho2OxxHLwDReg IDUxMDAwIFxcbmggXFx0 ACNlIBfdhKQsCG4xfTue ZlntnHqfm5XrnWOyWEcz CLBoAAIuVFfiYRHiH0XZ LBUkGuR2VBF0ETQsYUp9 BHl3UG7ZAlOgNPJyZwF5 PWW8YONuCBh7OMujWJ5G WEDqBHK8MFLfBjToWQOl RlCaPDn4RNHjRMgmduTs TYfiCwfyHGrcX53cjQTo ZFxwbGFpblxmczIyIEE6 XHBhclxwYXJkXHNiMzBc SNJiW2aeTyXzCOCnGdAl VIPuH2czNUBfRFSqEElu BPWpGeKmIMEoV6KsmiRq UJiqGYVkke9aqZesEFkj ZAQnJqH4CTYkrNG7SJ9j ZXGfOHLeZM1jFYOdkI9f ICBJdCBpcyBccHJvdGVj yIulGkwvlUG1WSffPjve jV3ffPZULQEQMvpXOepw feSnWD6ABUPVEtJBGB48 LdyfKYk4VEtzrXfiQktl nbScuTOcRkNvbI02LA66 TANlZSthy5jeKUXaDNlo u9WbWRwNNEGJMX4DPG2z wIJ6VNhVHUOQJUupHQRt EDpruNT9c0yazBXao4c5 ZObtMQQ9oBsgaMZkcvij vuOfYHYruyLyk5gxnn2o ZBrwJBGfy0GbkAA9LARr SdjzKQP8DJQeGBTdCJHi zLDbYQCrt5EsI7V1TTQu CNaeb9coLQKuTSarr9Lb QUvIOZCIKW2BGM2csBE0 PQaIGPCVW3bHsJE8NkG5 pVK2Da69VMBtYIXlnSEq MNsnU775P7repC6pmkuo AFn4SVWeHUpbs3svDSWn CRqsd0PhWWgRDQMMKR2K PC9icIV7BOmRWPSXOJsu SIFjPObxrWB8u4zbaOKw z2l8ORyvNBI9fUnzvXMw blxmczIwICBpbiBzaGFw ZZ7mDHd9KYjaahUsbRVk ZGRlZCBccHJvdGVjdHtc QztntFN2WRreLhinoU9v dCBIWVBFUkxJTksgbmFt CX9ZISELWhBDWR53Foau BoM3L2bxgLvyElmxzkTm qLSvCySimX8qqbC5t7Ks h7gndKRiCKiaEjejuMXt eqA3XSlKMSVKNJqSZhAc IC3vWAwHD3EFIlJ9Xbjy KeQ2Q9dcaOakEtweoyWw aMPgCyMyxR5rqCjrwE9b ZnMyMCAuICBccHJvdGVj fCpwUpiohCD1JIueGntj fV7szCNZYEWRFlmOJplo foZvQU2PPEYTCiQABO07 Dvc4Mub9ODh2tNpwNdqz jsSpnELvHaYlxV4HdLPl u4DlX5vxPG0is2XzYEhb e0DrJawlDouxqGZ8YHku HyzlmK0irZPHQCFRJhiD NijjqiPuGV1UPTTAGK1W yLB5SFS3hMG6EM68NLEr CRDdpZNnNDieB956QALf ADvuIUBnZuWgHDEnw4va fBjuv9KsqCTuPX8rxFAs c0chAXUurZLoXGQ6YZfa aWQgNTEwMDIgXFxkYiBP JbKeSkDoGSS6ZVC2HlFu APa7TUiaH6LBJYHxEDN2 PxA9EAi9ThD1FFw2GAZY Ub9pALH2BmQ1TgS4ToH6 GCF4BGHzSAEsEcDxQCVb UMAqQLbwrGEgWH8tLQen HxJ5JPSvxaVex4MoLJGd AUZjV3hcAlOlEGwpwqDg ZYO7WRNyncdeKJUyOISn UiMpKFAzV0thHaDyXDZa YQptLUMbSxCnWHXuY8Dg ndRtVQixLACeib2rgQib BPhyEEDdKwD0DPMvwVN4 UI4mGACqUWRsKV2dPQSw aY3jDBBYkCVnmbWeqOXk pXRifXwkXkonoEI0JGrt EogfyT2pqKVZQNKPZdrE EqdnvyNrMZ5LCFDOHxSK VU74DfdfLYx0IJl1nGhn HfneafYcwOMjYrNurD07 RD65VTMqGQedh7eeDGNj AMuzw2XiMTnLTOUYEG0N UN0dcWL2UMbPOYQLHHhl KIGfIWd8eNL7d6prtJQf d2s6ZZivFYY4uUarcJUr mhlwxyAkRSMioeHnq7ra ro6pXHogEPPjx9SutGS3 QHHePsgxKUI5ZLZjHIWN dCBpcyBccHJvdGVjdHtc OqnugNI7GWhjZjailK0y dCBIWVBFUkxJTksgbmFt RE4DWKJRQsNUFF13Kvwg HIp9Xus0dYikJxxusqLf fELhGyDvqZ9ahGmbmgAu qHWiqMneZkdbjMZ0VEhv RnenuK4chNCVXFNXDxzZ KiectaIaFL1RKZJRHP3U jAE4TaN4mHN2Bu94PBSg GAMwbFImRXirM532JJGs YWluXGZzMjAgIGluIHNo HFXpQsMxSYPlm0BrUNZy IoFcFDNeLMmswy66JSF8 m5cosUNpXAanOkhxwBEu feB4CAmIGFLDNUdRHyUn PQ3oVVlWF0HLISqJAxie HMGiTKf4gEg9d5lqjYMz e7w8QGfiHDU7mDcvKGHx uF58XSHtZQhby3eySYMp LHara9GnKNgWWPIISL8W ZR8nbXN0OZiDFSGCMFim TNTsQVw8dRp9j8hgeYYn j4g3PTvwEYS5xDpulRJz klpmiuPaWQ0pUPdylj66 EFN4q2itkMEkHJiyVttd rWXkqvJ0IQqFVEXEPYnB GfGdSU6rCDnAS4EKTLjO NrmyKPegTKz9xIu9d4qy jKTsl0m4WBiqZGT6fNYx FLTqiWOkdW8kqhU7XBFu fR1lHMAla4yboQVeVZrv ZubflRTiacL1XHzYQDXB APqURrNdST8tNYjWY1OK UuU4Zsh6Yzb1VTd3zIra UwxkthLokRUvCuNeiX2l zLdkkE4yZdDaWKVlFGdm CRCdlNToDSdoFINxx3Ck MFxlcGljWHNhMzAgVGhl IHNwZWNpbWVuIHdhcyBn uw3mg2ZoSQD6ERmhvd38 QUB7e8gccJRfIKujPqwz eZQcrmO0JEnQHVZUJRiY EcRvUN9bGXfOL1VHPYpI Vbs5FAW2Smv4zCj3q2bm gLPwk3m5VQmxOIT6xPNw lEqelXW5RCEAuVEyHV4e CSmxlp16TZMpPPkbx4su KOUzSXvur0RwAJoXPHOY LO6CDH9idCH7TLjRKVNK NGh4EDI0Tpy7cIw8m6lo xTAiq5l4GYptVLO1lCgr eABqgkxjkfHbLLE6AIXa zEYsZJO7GN9ocEbfWCRa T2QhQ4GegeN8JFUitag0 UDCCVPRTRUcRQA9VJWZT VRMULC6OLBiWLzLtFIFj CTmbTUBoUgygIAg1Bb2a WaA2TaYrdYB7Ka4qFNjn PLz5NPPyAgdnMIp1FI8a YgM6WjP7xMS6Gm5bHXTh GBt9GGVqEyh6Xrx2EV2e WsOkZVxvjDc8FyXPPPWP NUkKT9YfMYGFQKPJPYEp MG9YDOnUQJVAFQLXD83J ZUVGMNPZN4WDG9mEQVxO JEIIUEGII85CPJKJGZPZ N5OGEXYXVUVPWRbPYTKO Mi1TQZNVSDPLHP0YCCgF MjKiXPogDEJhlAN4kSXc tV4mHvE1HnO4MH6fKNyi PSUowXI5iLZsSNNeMmV1 EcD3II7gTMzwTCFmtYG4 nXYgBlPrZKVaSlS6RwOs UP81LMciFIPbsIG9dUfy cotaITglAJa6YUn4ZRRl yQAshAoyz0cgbwpgUOHp FIq8Pkr2AQRsnZVuwRlj qCMeLUvnVYUzVFd5M2l5 ZGVybXBhdGhlbWJlZGRl UMehMNEfLNu2CJy8POYn pIMgpBzhyuf9Kxe1Ueuh dJriu4Lwkd9nNFZkP2Nh f8Ufjxa3QDI4Evf1FMMN WWUKML4SBMXMO36DYCGI NOFST1PFUYYYVhSNCNFK P56ADBNAIOLGG6FMM6sO STWDYmDHQDEFK64YKEMS WQSFD8SRLUKEHGLDWvZT WzSZKH5DUBGCTBSLUA2Z CLhIAsSmOPSJC1KZMyBZ I9xzYHDNKZWSTROuXV1K fQ== [facility] Work Phone: Pathology report microscopic observation Narrative Other stain b5qunTRiAHMcsBSjUJht LfqjbsYgWHVrkVXdC7Np tkriMLyyEL1xOE1peVyq tJCesJQtXVNdTsAjv4pu h983nCPnf2suVEBEhxch wZc9iArqN30fj7N5Btaw Z66utPSgKAK0AKZeVICw nCTqXUVnGFY8VGLcjKNz F0ydOEXxTQ3zjkhuXAot GNwsVGGogEJ9EDAxoHWk N8LtEEOpJTzbLCQxfhm3 OfLmEz1vdYSupTpmPLca YXJkXHBsYWluXGZzMjAg OY1dEAxqpa8uN14kfZAj XRcrvXijGCVzt88ptvW5 ZWFscyBhIHNwZWNpbWVu YKXrNHGjTNi2IY0vmdXn bnRvIHRoZSBkZWVwIHJl dGljdWxhciBkZXJtaXMu IEluIHRoZSBzdXBlcmZp A8vkzNRqecDgMNHraTPf ZXJtaXMgdGhlcmUgYXJl QDvbzCOwUJMgg7Xjm5Sh ZUJlyp1wfMShnoT7zOWk MLPzmgKcPCmrx2CeEBMc uhn7THTos43kVAKfgvqf VNQtNy6rUZfjdl2yU11z kDNjQB6lwLfdeLUbp4sw e3OonPZzCWy2dVXuRSmv z2x7qVRlKaAzSDGmvZgj s6Y8oCTuIXXdQAHlDBIx ZODtt55zxUS5CCTuc3s6 yDW0sKAeCZJtAXElsUop IGFuZCBpbnZhZGUgdGhl ZEBwhk7fzrOgixMvb02w RZYrBUIoe2ggiwBkPYFk LYGypKIznjXlZbMhXP5h pkSjDOWvzFYlFK7xJXKj bjNkQSivg9KqFBKsjdx3 MNPuk04sPVDpMMRgHHDm aoCvDVtoJCPez7DcWLAg xInoVRIrNDSco39scBcj PVUlICXvPMGjYNInpt0u IHRoZSBzdHJvbWEuICBB dHlwaWEgaXMgbWlsZCwg DG4qGR5gvK4dKWJgPBPd IHJhcmUuXHBhclxwYXJc cGFyXHBhcn0= [facility] Work Phone: Pathology report relevant history Narrative w6kakOTbIXVshRKbAMkf PrjkltAmCNPxqBWtB5Vn vwwoOHyrBY6qLD0wwUhi mWFoiVBiZUGqWqDpc2ui f323iUFaq6slWUGWacva mEd7o2nbHVVCVTgvMUOV MGv6xArdH40qy5D2Selc X4idXAFgCRypMXIoSRrp rYNpBBm1TWNjrVWwuaXz WsRpKXWdwNPxtZC3BZAq EO1imtfjHFnxZQblJVAw chX7HZRwvWTgF5EnWRRf KU6frjcoXVX6LPhkGECl DTJ7KeRkTKUeu5Ufqiv6 MjBccGFyZFxwbGFpblxm KWwjhyNiZMObJEWHGU3p z4Fhz26gEQhbL30vm2jm KwBBkEH2XYVtDXLrq5Hp r6VvYUGdIgPkNWCcbxkf MVAjxLYtDZHmuY3qY9Ym LUlcv1XpoeiuE6WbO3in rODKHLT2XRT3KaKtjEBu bmljIGhpZHJhZGVuaXRp cyA+XmZccITwpkHgu01b lusnnTZtLvE6vD1to3Zs AB9qonT0fQCaDVTsY0XK GS6wnSUslCW8yUQolIGt kUG3qDjcrMUsf5Q2vDKh BSBhs7MwtIMvghlyREMy ZATkCGcoSpDbV34liXyy DJOsaZc3KVAxPJCyXX0x RDefFmTrSrZ6tS1gg5Gh t9o4sPLbsHXpwBOvn79g lGcpcwLdvjL0oYDmbIUy sQTbrHPAS5EloODhwX== [facility] Work Phone: [facility] Work Phone: Magnesiumon 11-20-2024 Magnesium [Mass/Vol] 2.13 mg/dL 1.60 - 2.40 mg/dL [facility] Magnesium [Mass/Vol]on 11-20 Interpretation and review of laboratory results Normal [facility] No Panel Informationon 11-20 [facility] RBC shape Nom (Bld)on 2024 RBC morphology finding Nom (Bld) No significant RBC morphology present [facility] Renal function 2000 panelon 11-20-2024 Albumin BCP dye [Mass/Vol] 3.4 g/dL 3.4 - 5.0 g/dL [facility] Anion gap [Moles/Vol] 15 mmol/L 10 - 2 0 mmol/L [facility] Calcium [Mass/Vol] 9.3 mg/dL 8.6 - 10. 6 mg/dL [facility] Chloride [Moles/Vol] 100 mmol/L 98 - 10 7 mmol/L [facility] CO2 [Moles/Vol] 23 mmol/L 21 - 32 mmol/L [facility] Creatinine [Mass/Vol] 1.25 mg/dL 0.50 - 1.30 mg/dL [facility] GFR/1.73 sq M.predicted among non-blacks MDRD (S/P/Bld) [Vol rate/Area] 70 mL/min/{1.73_m2} - PINF [facility] Glucose [Mass/Vol] 104 mg/dL High 74 - 99 [facility]ation and review of laboratory results Abnormal [facility] Phosphate [Mass/Vol] 2.8 mg/dL 2.5 - 4 .9 mg/dL [facility] Potassium [Moles/Vol] 4.2 mmol/L 3.5 - 5.3 mmol/L [facility] Sodium [Moles/Vol] 134 mmol/L Low 136 - 145 mmol/L [facility] Urea nitrogen [Mass/Vol] 15 mg/dL 6 - 23 mg/d L [facility] CBC W Auto Differential pane l (Bld)on 11-19-2024 Basophils (Bld) [#/Vol] 0.08 10*3/uL [facility] Basophils/100 WBC (Bld) 0.7 % 0.0 - 2.0 % [facility] Eosinophils (Bld) [#/Vol] 0.43 10*3/uL [facility] Eosinophils/100 WBC (Bld) 3.6 % 0.0 - 6.0 % [facility] Erythrocyte distribution width (RBC) [Ratio] 16.4 % High 11.5 - 14.5 % [facility] Hematocrit (Bld) [Volume fraction] 29.6 % Low 41.0 - 52.0 % [facility] Hemoglobin (Bld) [Mass/Vol] 9 g/dL Low 13.5 - 17.5 g/dL [facility] Immature granulocytes (Bld) [#/Vol] 0.05 10*3/uL [facility] Immature granulocytes/100 WBC (Bld) 0.4 % 0.0 - 0.9 % [facility] Interpretation and review of laboratory results Abnormal [facility] Lymphocytes (Bld) [#/Vol] 1.78 10*3/uL [facility] Lymphocytes/100 WBC (Bld) 14.8 % 13.0 - 44.0 % [facility] MCH (RBC) [Entitic mass] 26.5 pg 26. 0 - 34.0 pg [facility] MCHC (RBC) [Mass/Vol] 30.4 g/dL Low 32.0 - 36.0 g/dL [facility] MCV (RBC) [Entitic vol] 87 fL 80 - 100 fL [facility] Monocytes (Bld) [#/Vol] 1.14 10*3/uL High [facility] Monocytes/100 WBC (Bld) 9.5 % 2.0 - 10.0 % [facility] Neutrophils (Bld) [#/Vol] 8.58 10*3/uL High [facility] Neutrophils/100 WBC (Bld) 71 % 40.0 - 80.0 % [facility] Nucleated RBC/100 WBC (Bld) [Ratio] 0 % [facility] Platelets (Bld) [#/Vol] 758 10*3/uL High [facility] RBC (Bld) [#/Vol] 3.4 10*6/uL [facility] WBC (Bld) [#/Vol] 12.1 10*3/uL High [facility] CT Chest and Abdomen and Pel vis W contrast Mp 11-19-2024 UH MMODAL UH MMODAL [facility] Work Phone: Radiology Study observation (narrative) [facility] Work Phone: CT Chest and Abdomen and Pel vis W contrast IVOrdered By: Ravin Hyatt on 11-19-2024 [facility] Work Phone: Dermatopathology- DERM LABOr dered By: Ashley Ramos on 11-19-2024 Laboratory comment [employer] (Report) [id number] bGFuZzEwMzNcZnRuYmpc vQVrHVtocjDdPZnxw2Ta B2YpQyJfCWvsurLrNXNd IbqvhsyoUIVcXJY5muQo QWJgMMpkHUJcXHbfCl4q lVLppDwwRwXtELAwf1pe kdCQXFjuXJCZJFs6x6rn YIXvHaG9iSYgXOyjF8ym smLaxYRyZ3Tol0SxNSf9 pQ84CWXwsI1rjPNpPCjd hlRvNbQ3DNflMHJeSuE0 RIQmkOCmZLLpL4tgEJQl XGdyZWVuMFxibHVlMCA7 jBhtr0I2hTEwmFMsqIus FhUmYhTiAeTOj2PnPGj8 eGvjI6HlYKYkJrW2wDFp UGFyYWdyYXBoIEZvbnQ7 gH37YFgpjrN9wZAkj9Dn g07wp278kX6guHBgTXE2 MTIyNDBccGFwZXJoMTU4 DVVljRLpQ4pvNbElfNNd W0XqZlKyiBDyF7LmBgVv fJGtC1JeHvTglPQwIHEw eAP2TDpoi136RKS9OzGc TL7kJ3Hkq4P0wU3bnIIx VDQhdJMwWzBeGVCoge6o cRSqAHfpa2VlKYF9gbH6 hJFxnHRjQKXqEU02Rqaa b9PjVtglEPP4HYVsjkJu h2Cap0gdHwUiduTdU1nl Y7KtLOViDBBoHDCpDaTh kfVvv4Ezd7BejDZjlHx5 m4fxOIOqRGEeoZfmm4sz HIA2MINzI3G0wDFfh2ed MUzbLWDluXD7vqR3AOrf WBRiwkH0lvT8VWziHTZq nNY5blD3VNajFDFtZeQ6 hfV0TErjUQMuTYO8AzHv ZXFko9CwimlxYlXqz4Su fIVbQDusG61qk003DAAm qwXhP4nuiHRcgkmwrIPy mghvYXsnbrE0RRZaSQZq YWluXGYxXGZzMjBcbGFu ZzEwMzNcaGljaFxmMVxk FaRgPWJgQTmdJ1ibSnJh QxOgTCPTuTM9lWTjv2ie otD0nVFwUC5cZXOqnOUl gqLzk7M0TAU5mOMzlC5a bZBnBZKzmVPhjsUzmt62 aXCqdGE7MILoZILqnOMi iD2bOZTtGYEDjH4bfEYA yaWxasFhDVCkuBdlye7L nMKqov4xyRZvR4FcxUxu aWVzIHRoYXQgdGhleSBo MZXzPPWyqkgjp5NbJAQl sCReL2FpFD4wUTPhes93 [facility] Work Phone: Pathology report addendum [employer] (Spec) d2svhILwEVDrgYHrNJps KcwushWuEQGnkXCeO8Yu pzmwMVgmOF2dRD1mxYhj dOEjeZZfIZCvQuUey2wn a010yLBbr0zdCPXSdxii vAd3kCpjU32uq6W6Lfcb Z09blDBzLMZ9VSQkKNVy vEUoKXLtPBY9QGMhnHNy L9yiAVKcSA7fyawqJMww CXtdQCGbzOR6YFApqQDi F7XrRGTbLMbrIDWintp6 ZdFtQr7oiAYvsRfzTCll YXJkXHBsYWluXGZzMjAg TVVXm53talZHULCdq9Gi pN8jBJXtedMgl4zmXTHb jg8bvbhseATpOGFxxxTw zJLxxT6xVMUowdF0tI1b NX2cXHVmnp6jV0ZhatLw sEmde4VjOMWgPsTvxuS2 kXBbhGcvn4D0PYGgEQOc STOnsJIoFO7fZWCwiZzg IHRvIHJldmVhbCBkZWZp lon7uXHnQPUcaNxfyMMh TMYhe1OsmJNjKGcaBPH3 [facility] Work Phone: Pathology report Cancer Narrative [facility] Work Phone: Pathology report final diagnosis Narrative q7vqvIAhCNIisCDcIYiu DxwtwtVaJPPwwTQuN0Cn fxvzHGflVP2kHL3sqNli fYLfxUKuXTXjEsEfj2uz f379oDKbj6zeMEBJexny bVw8aSpjN68qd8P2Csjv C96elLUqBHE8CXNsHIBi hERnGVGnVPQ6WQKzvAKi A9hmIEPgNF5fridpLLyo MQorLUVcoNU8YHMwvSDk S9GjJMSgVJefQTUcnsp7 QdZbWg3euCYwpQouWUrb YXJkXHBsYWluXGZzMjAg FW9iU1mJTbtxGEdNO8im NMPCInCIZSIMC9GXYDqq wRXvVZHpTD6QQPQNOsSz A8BNKJ8VYQDmR0NSEAVU HEKCOO1QTPWfJCmccb93 BSB8g6omfKYcYZpgWocl vYHfrbQ0HNqXUSRVGNnP NgSuNT1uTTuOW5EOEXcA KqqyXWC8O8zjnQS5q4sp wOJto8n7CClxVPJ5zRsE RJe6SSLlZJbyc2tpBEOk GHcye1RvTFeDZEKKDY0D JI4naFM9WDqNGHTEBYns XXS4B4aybQW2w3lfbKZp s9l6FHfmRFJ7gCiuyCUf blxiXGZzMjAgIERJRkZF UkVOVElBVEVELCBFWFRF CqRYZtcmYU4xKFdTRZQP UVOlHP8MBDZREUXHZZAH ASsLEsASYF4MHvgSKoSy FJ3wZZpAO0LjOZhXTlTF JU4TTUKVU4ELU12tROZU CDEDX96RGM8GYPdsnEUn GGRzlhceLZNEk35yAG99 OiBBIGRlZmluaXRpdmUg MFBaAMHioOWaSUJ6eIEc hI0xgfMhlVMnna48UURd zQZsR6vwfGCzNKfhFSPj ZAMmwnTejTThqKYjoR2e dGlvbnMuIFdoaWxlIGEg cHJpbWFyeSBjdXRhbmVv aWTsx8N6GM0jaYNrM0Hc qZWnTIPanX5yuPDcyIHt SeL1g8EaZDhmJRUtJEAd g2LhtPfdQMMrqHMac7Fy DHQuvHlrM6MuY7jsy39u RKWdwj7kkKKpCEGxmDQb qZYbWAXtelD9dFCjcQ9s dGlvbnMgYXZhaWxhYmxl LlxwYXJcYlxwYXJcYjAg Ap5gS7hLIwmcSDNOBRRL JBAKW7CZEbvkTZDXL8uj QklPUFNZOlxwYXJcYiBB P6YEJAxNJ0wNKVYSYJSR IU3ZMW0WRZDGJRAAYMXV QyBJTkZJTFRSQVRFIChT TCIqN17NKYNBOYt5TTNf yfxaMGLzTkIbZ05ooQQc dDogVGhlIGZpbmRpbmdz KOUuDDIxz6Qyo3GrC2ap iFLsOP4dRP0stSIbAXRf LXPaBKArdnKkXJ34NUWh YHItGLNiTWEdb9IoL5vx m43xUiZ9dWVnfnV6kK8d DM2bIJLzwX0uJGLwUXKm KK6pZVSeyzutUQExfOea RRVuTSmqeoP5IARcSkFv FsBqEUM7nw2whGBuzPl0 FKBzM82mNFZxjOJsCzrr YgACJWIMDHDSTbQDE9xY LCBNRCoqXHBhclxwYXJk SJSyGYFexNOwDFZoQ61B TuMJGNSJC23CARPNKCGQ V4HOA0sYHKP9DPWduAT2 ZNVEZLETFQsJX8EwIMIL EKWBGCKqIR1KLPuJRQZH AAVFZ10KQOASDQRVZ6JF A5pKHGwCUZVSLTPST59C VISTWZQLJ8KOHYIVJVHW TFvHTDYNGc1KIZZTBEFL BN3CSOyBMgYkLGoEVWXM WZKVBLLGCqboZNO4H5p1 UPDQJPDQLW1PZOQKQ53R IBBNMAKAW9XIZIUXStEM LKJNQ57JCYUJSEMHO7WY U3lQWKYNTdQDRFTJX41O PFHVJCYNL5TFAGAMJPAA OlSRSdCDJZ4ZCBCVIUFA NN5RJQsPMqBgJINDG1NC XaDAX6hnHJRYJDBKEIQi RU5EfQ== [facility] Work Phone: Pathology report gross observation Narrative q3mhmYByVBUrvPJeGBbw IgbulaUdSGVyyOYxT3Ck jetfGUsuHZ1gAI0vuKpy hTUbgPWvCBTtNkMjh7ag r045jEYgs0btTMWLpvmo gEe3wBdcR76db9P4Haoa I18kiIVjUDY2TWBqDOTt lNSrCVVrKGV7GNYfgUTz M6orZSNyDM9qixjlKIlq FEquOVSvmBK1BIOtzODk P6MzELGkGPgyKKUwdzp7 HiLqXm6srFCzaWtdWXhb TfcvrCxax6ZkcXPxKHmt IDUxMDAwIFxcbmggXFx0 MYPtAFukqDZbAM7mwTvt DskszCbas0SukQOqTVod LGXbIGFaBMyfYJUdL2ZI NEKnErI2XDSqNnAaKEc7 JAm2CO0QFjVsEGVkOiN9 SCPqZRRpFUc5CLhvTB7U IDEzNzQzOTUxMTMgNTQy UmxdEKj6HIQnVJmpafXy IFxcZmwgXFxuYyBcXGZy fVxwYXJkXHBsYWluXGZz MjIgQTpccGFyXHBhcmRc y3VkIDlxhNfcBEXnOlAl l2EyYBylyWcfWYEbBaSl eIwabG7hYcDbCAULKIXx dXDqHPZgecWvp4WlJMce drPdevBkOAZqvNE7YQbn NCBtbSBwaWVjZSBvZiBz t3zgAaXjGVRkqVZpPREs u7KuK3G0SZFuBHvne8xa NPLcZNuep0UtPHcUQUXR TC4GGE5umKF1CXhTELNF A1aEsHI4UnB1hGQ8SB64 OGXpLUHptBXaLOcpP484 gXPtw1cauKKoIPkyYysc tAMrvgX3BDlPGCSUHBcP BeNoRH9sMCkAK1BRAsE1 DnfvXBs4XModfRcvNwoj foOwfPOvYaQrzT7tkSfh kW6dRpAfUIFvlO4wY64g e4IzTFGQeDUfzgWjiUCg tVPehTqeJvblyJQ7OSkm AzuimB5rrHFHKADAEwpZ CabfvgYnQL5QQHVBDjTA BL28FackWLq6LhwenKbe OxtkpxHftSFkFdLalO2o eWxpbmRyaWNhbHtcZmll cMP3CXrhQlzfhQ5ylXDW JDFIKrnVMstvwrSvAH8C RWZYME7JaNI3HoK8tHS0 Qy11NAInYHVvcWHqBLzx F249JNAnBCdjDSZsUpWj IGluIHNoYXBlLiAgSXQg q1KhVEJpCpDfFYJdHHkc pj57PDR5r9zxbVTdTKbb JjhklCNzosX9NSlTCNMH QEoMLuZuVD5qSYzQA8NT RUdJTnwzODIyMHwzfDN9 s4yuqCIkg3a3YFseXEM7 aNmuFFJekK49COAfNDqh g0nnAAHcKDfej6LvVUuZ ZVEYRI2KRW6ucHX3SAzB VEVORHwzODIyMHwzfDN9 z5oacHQwd5d1DEnaJYJ0 sOvbcPIejejfyhRhYG7h THvzxx96OLT0l2buzGSw YMpnHxvqlGVksaV2VWzF FUWPTTbZBrKlRK6jLBgS B5JSKWoWTaduFOaqWKb0 wOJ9p1vxtGZij4m2FYsc IVO0oPLkTOGqgAQmxU3w rxA7PUEohS6cPFVua0la aWVsZHtcKlxmbGRpbnN0 UXkELHXFGUbLMtFcBD5q DEuUU0EIRnW0Kmx5Ecp6 CXf7xFqgAeafrqMjnQJs CjKdzW8opWtkcP3nBuWd WDPcWEEkc9ftlQpny8Hx rIJdLO7lzDYnb8huSSEt vJJaNLL9DLvfiJWqWGZc MDIgXFxkYiBPVlIgIiAy WMI2CJH0GcSvYYe0REga J4JENRZpXXH6ZOt3IpKr YsA6ITo1IGFSEi2gXAP8 TZT7XXK0XbG8TAR8RMZe XHQgMiBcXHNzIDMgXFxm tWCxSC2aMLaqDdQ8QBHj qdRar2RyCBYqSRJmS1tr CcHpSVkgebDyDRX3LWXi clxwYXJkXHNiMzBcZXBp F9hxGpGlQASeHIfpPDMa CkZwZcLhLYe0TGEfxD1p Wo9gnJGoxN1qmRMsVMT8 FYysBSF6BMXigR4dfZjg N3Fyu8Tah0isrg5kJRx9 OEelCZbdtl67CEL1a8xx aWVsZHtcKlxmbGRpbnN0 MOxUMKTVCCeTUnXtXN5t GZcMO7OIAMhZUuwmFSNy ZAg0nAO5s0zlzIBha1h0 HVqqTCD1oMNfhwueQvfc lRY8UTkoPulhuU5tmVDO FYKLWtbRIvbqjfLhXS9R VKCFSX3JxGE3IyU1aTJ1 ZC98EIGmMPMwvEKvBVaf V331ZSQyWNmhBMPwUjHt LHbsKETrvY3kQdXtTOZr jQUaUJZqa7JoQ4N8WRCr EAqne8bjOYAwTKcxz4Fr LBwFTONXXT3KEQ8ezSU6 EWnNHRESN8qBeSB8AeB4 sAZ5Ea82QOMqHKPhaGAa WZvfL033B5bnnN2ipcje HPg3KKUdVXjjc4npLOAi UDwzm7JaNXpWALDQKD7H AZ0bvAZ7SKoWPKWQEFzp KPAcWAc0eMJ3u9jpwHPl v5x1ZUejGLI8cJyppHVu blxmczIwICBpbiBzaGFw TX1bZSn9QQdkpiQpbDAz ZGRlZCBccHJvdGVjdHtc MgmqcTC4FBvcZkszdL6u dCBIWVBFUkxJTksgbmFt ZP8QEASLNgDHJL84Ordn AhF1P5c8ySasCauggrPv mLViBpHhiO8kzvA0k2Qu p4oelYAhHWuiRwyceYId ksR1RTnNUZLOUMnLDiPo DP2xNAfZZ3MVCgG1Mfsy CzQ9U0p3iLvkDatgftFf aFEoCgLqvP4imJmedP6f ZnMyMCAuICBccHJvdGVj cBnvExfidVD7BNwxCbjw pH1rkILFENVEMfjNNkpw ohAyEG9VFPKJSmQARK14 Ptt9Obg0PQa4kNvmHjmn nvIrbDTwQjJwsT4QdYCh r0UjO1ciIW7pl9DkJYaw i6NfQqxfPshqpGC1DZdm RupfyS7peAAUGGHEUjgD FsvsheAnYD1AHFAXVR0H kIU2ZGP4sIz1WJ22KOPn TDTwdZGjCAweQ777CLUv YWluXGZzMjAgICBccGFy XHBhcmRccGFyXHNhMzBc PNDhU7bwJIIjGBFpCJKx wNChzW9drqO3SWJzK3Td b3SyMSFzhBIeiZEyaVWu qBlbGdktgKY5GPnzYouh lD5hdXJEBRJWQvgMLtxi bkReOI7GZVURQoIOBR19 HGH3MzC1UCl2cOrfUdyx qlSikUTwUmInyP3HZQZ0 dFXcSPPbhQcqcpFwo2ru aWVsZHtcKlxmbGRpbnN0 AUaNVBQLDEvCCqWsSC0a PHtBF0MHXjZ5ZKQ6VzU9 MKx2aZwdPtbctbShlKVg LzYuvU8lzIrjxQ3tSnPs FVYfLXakLTCwN7FlW1Vm xzH0g4dhnUunk7LuaNOk PJ1niFWiNFVhS49TVqMM JLCIB55IEXPTVNCYL7PF O7nTNLJ2JcT8nNP8PB3d ODIxOXwyPTJfMzgyMjB8 Ut1xJhL7NTM3rCD4LV0l RHWgFQf8HVCxAieqBIn0 Vb2xWrW4RbGkfGk5Xw9w CFccACi6KWOhCMD3XbP7 JE8pUMEBUVIUJWfPPB0V SHPVROJYCP6IOkHxZ3xF RENBUkRfTUVUQURBVEFf EfGSRQ8bD9zBSWLOWvEi ZJMPWRYCTJPrCD2OICVD FSAOWB7NLEGRS98LKFLX AHYVP9EZR5lDPOUmx9Lk fy6cDZOiI51qr5C2Mgnn AKufaVKdv5Sdvw4cHYQg b8szbEX6PnsiKRmavHPr u1Lnut5sEQBtYF0rPZBa ADG4YtedSoXkeCTha8Vv vt2mFEKufA6iGsX0XTN0 MT43LGzaELFyyZI8cBCe lP9zXcB3BeQ4WU38PPsz JMNhkBC4mTGiCYMdXcV6 KyD0BB35YAjvIPBoeER5 vLBwEoJjOROrRjR9MvHu RK47GFabJSIpqXT6tXsc oazaZYdkSDe9JKy2MVAw rTGdmCrjjd1ll9OwCtQq JAebDE9rADyMQ6ZCI4pJ PIIzYKFDXDVESHTdVU0U RVcSHD1ZTXTcUADQFJZO DVGmRlRTZE2pJBuWRH8B SHNbQKODJFYHZIFiHC7H DUCGDY1YQBAJEOPQR08U ZEWRDIQFW0XBN0qQJGPM GCLBOeYCZdOOKZ5OZVRW RWQPON6HSgG2 [facility] Work Phone: Pathology report microscopic observation Narrative Other stain m5tvtSUjAQJohIPtFTcb NlcdznVqOYAjaRAvS4Kk mhkyAHhjDT7jDJ1hjBcd iKQvqZIcMWSmPxGsi7wv e641qDFrr1nlIZAHekev pYp8gCchP67ng1C7Vqmv U30mlMLoHHF3PBNcHHUq sORcLENzUJG6THIksJSa K6cvDHEdNR4lhyilZChc KWoaWYGicCO7ZVCyxAXr O8LrRILqKBlnUAApjtb2 AiCaAz1iuHDwdXraCSuz YXJkXHBsYWluXGZzMjAg PB1zJZysEQF6dsXtCPYr o6DfsCHcXCUlQKfzKECx bdParv5jyIXpcHvroXAf hCGyMOMncYowp7L8cBBr yHZdMQ4qfnQ6sTBpBFvm VUNhgBVudDQzvPnlc14n VE23M9ztCMAguPnvu40i eiGphFJgNLLdqzMyf1Lz VDMavbw6OGYck65aBHPw qfzrUEAwNp9cZOuiGJqu gSK4n7n9vAjyGFZbQTWE e9FeolBhwQPqhjTfMNHw B7Qqn69qCG0hXYJaZLIi iE5wyWWpgF2ie9xsf2Tp T3boUE6dgvO7CFKnFVGp bROsyl9nsKUdT5UhxWax i1ekLOozzVgnEFQqFU11 pxTaFOJvdME7XXUgKb8y kXsbzHvphaOuq7FvBD0z VGhlcmUgaXMgYSByZWxh eKy3JOp0PASbzcJhAFMt yILdwzeuOvYzo8vgoCF2 mC0dVZCyS7RexQTnnQ5q jT2dZBzjryTmkVPxm2Kg XTVxfNRvWFpxvR1pOTLe vYXvdyCge46lxaLwzWg6 UEIzqqp8AOUtnNjwncOc iJ9brF4xeJHcrKVtxYRj YyBpbmZpbHRyYXRlIGFu ZCBtaWxkIGRlZXAgZmli xt8qkQCwa9q0fXPkr4Tg zCHrULwlv8Q0lWDiRKQz w1SxnE5xbMZeYMDdrwze YXJ9 [facility] Work Phone: Pathology report relevant history Narrative x7njhAAxGFEfyZVgCPkx WxvjcdGyLAJvwJKwI5Js uhtpDWucXL4fSO7khYfd dCSzyVNeUZLjDdLcj7rc t623qOSpm4gkRLJSakut jJs4j3jfPFEQBHxmBXRV OCt1rCqbV86fy7A1Ueor C8szADSwABrnMLGaBAea fAEiBRd6ADNvdCSopsAy WeViIKHkvJVrzFZ5LCOh BF6umipyXWzwEIwzMYTr ucG8FBAehACuS5WeGNWj VF7spzgjSEI6CAgnUMKk OTO7WtKpYNOcm1Yjxqq6 MjBccGFyZFxwbGFpblxm UKsvmdAsWLWwMYVOTZ2t l7Uhd93qWChkQ68qt9gv UwSBsAA9OTWbKYQin0Um w0AcTEIkYsBkXVFqbvlv TCJcuHSeRSMzwN7dX5Oq FVajh4LghvafC6MuE1ra wCFRHPQ1OXD9NnWYtXO7 aXRoIGxvbmdzdGFuZGlu SvWneGWpVJJysqb6oASi h5BhhDgpRYZ8ySDeH2qw IHdpdGggYSBuZXcsIGZp vz8tLDVkcYopUL6xs0Dv fPrsaYHmfw7vYYEoqnSc EPX4OY0sshHlMNhcuKjb YHu6peCfMNHyVWonFCFw IHdlbGwgYXMgYSBjaHJv kedwSHIzD3ViTG5cDArd LeMbCzQ5yD0jy8Ghl6d4 qRHlocK6scK6CFHjHt9z YQRxFZIavBomF2wnn76a DvVRFvJ6ws5bOBPahd2f aJ0qwxH5hAQzvv1cwZVd lK95rbXyVQaqNGLhhlJn iy6xFBijHKA8 [facility] Work Phone: [facility] Work Phone: Magnesiumon 11-19-2024 Magnesium [Mass/Vol] 2.06 mg/dL 1.60 - 2.40 mg/dL [facility] Magnesium [Mass/Vol]on 11-19 Interpretation and review of laboratory results Normal [facility] No Panel Informationon 11-19 [facility] Renal function 2000 panelon 11-19-2024 Albumin BCP dye [Mass/Vol] 3.4 g/dL 3.4 - 5.0 g/dL [facility] Anion gap [Moles/Vol] 14 mmol/L 10 - 2 0 mmol/L [facility] Calcium [Mass/Vol] 9.5 mg/dL 8.6 - 10. 6 mg/dL [facility] Chloride [Moles/Vol] 99 mmol/L 98 - 10 7 mmol/L [facility] CO2 [Moles/Vol] 25 mmol/L 21 - 32 mmol/L [facility] Creatinine [Mass/Vol] 1.15 mg/dL 0.50 - 1.30 mg/dL [facility] GFR/1.73 sq M.predicted among non-blacks MDRD (S/P/Bld) [Vol rate/Area] 77 mL/min/{1.73_m2} - PINF [facility] Glucose [Mass/Vol] 105 mg/dL High 74 - 99 [facility] and review of [facility] results Abnormal [facility] Phosphate [Mass/Vol] 2.8 mg/dL 2.5 - 4 .9 mg/dL [facility] Potassium [Moles/Vol] 3.9 mmol/L 3.5 - 5.3 mmol/L [facility] Sodium [Moles/Vol] 134 mmol/L Low 136 - 145 mmol/L [facility] Urea nitrogen [Mass/Vol] 15 mg/dL 6 - 23 mg/d L [facility] CBC W Auto Differential pane l (Bld)on 11-18-2024 Basophils (Bld) [#/Vol] 0.07 10*3/uL [facility] Basophils/100 WBC (Bld) 0.6 % 0.0 - 2.0 % [facility] Eosinophils (Bld) [#/Vol] 0.4 10*3/uL [facility] Eosinophils/100 WBC (Bld) 3.2 % 0.0 - 6.0 % [facility] Erythrocyte distribution width (RBC) [Ratio] 16.6 % High 11.5 - 14.5 % [facility] Hematocrit (Bld) [Volume fraction] 29.9 % Low 41.0 - 52.0 % [facility] Hemoglobin (Bld) [Mass/Vol] 9 g/dL Low 13.5 - 17.5 g/dL [facility] Immature granulocytes (Bld) [#/Vol] 0.04 10*3/uL [facility] Immature granulocytes/100 WBC (Bld) 0.3 % 0.0 - 0.9 % [facility] Interpretation and review of laboratory results Abnormal [facility] Lymphocytes (Bld) [#/Vol] 1.69 10*3/uL [facility] Lymphocytes/100 WBC (Bld) 13.7 % 13.0 - 44.0 % [facility] MCH (RBC) [Entitic mass] 26.9 pg 26. 0 - 34.0 pg [facility] MCHC (RBC) [Mass/Vol] 30.1 g/dL Low 32.0 - 36.0 g/dL [facility] MCV (RBC) [Entitic vol] 89 fL 80 - 100 fL [facility] Monocytes (Bld) [#/Vol] 0.82 10*3/uL [facility] Monocytes/100 WBC (Bld) 6.7 % 2.0 - 10.0 % [facility] Neutrophils (Bld) [#/Vol] 9.3 10*3/uL High [facility] Neutrophils/100 WBC (Bld) 75.5 % 40.0 - 80.0 % [facility] Nucleated RBC/100 WBC (Bld) [Ratio] 0 % [facility] Platelets (Bld) [#/Vol] 785 10*3/uL High [facility] RBC (Bld) [#/Vol] 3.35 10*6/uL Low [facility] WBC (Bld) [#/Vol] 12.3 10*3/uL High [facility] Magnesiumon 11-18-2024 Magnesium [Mass/Vol] 2.19 mg/dL 1.60 - 2.40 mg/dL [facility] Magnesium [Mass/Vol]on 11-18 Interpretation and review of laboratory results Normal [facility] No Panel Informationon 11-18 [facility] Renal function 2000 panelon 11-18-2024 Albumin BCP dye [Mass/Vol] 3.5 g/dL 3.4 - 5.0 g/dL [facility] Anion gap [Moles/Vol] 15 mmol/L 10 - 2 0 mmol/L [facility] Calcium [Mass/Vol] 9.9 mg/dL 8.6 - 10. 6 mg/dL [facility] Chloride [Moles/Vol] 99 mmol/L 98 - 10 7 mmol/L [facility] CO2 [Moles/Vol] 26 mmol/L 21 - 32 mmol/L [facility] Creatinine [Mass/Vol] 1.22 mg/dL 0.50 - 1.30 mg/dL [facility] GFR/1.73 sq M.predicted among non-blacks MDRD (S/P/Bld) [Vol rate/Area] 72 mL/min/{1.73_m2} - PINF [facility] Glucose [Mass/Vol] 91 mg/dL 74 - 99 mg/dL [facility] Interpretation and review of laboratory results Abnormal [facility] Phosphate [Mass/Vol] 2.7 mg/dL 2.5 - 4 .9 mg/dL [facility] Potassium [Moles/Vol] 4.5 mmol/L 3.5 - 5.3 mmol/L [facility] Sodium [Moles/Vol] 135 mmol/L Low 136 - 145 mmol/L [facility] Urea nitrogen [Mass/Vol] 14 mg/dL 6 - 23 mg/d L [facility] Basic metabolic 2000 panelon 11-17-2024 Anion gap [Moles/Vol] 14 mmol/L 10 - 2 0 mmol/L [facility] Calcium [Mass/Vol] 9.3 mg/dL 8.6 - 10. 6 mg/dL [facility] Chloride [Moles/Vol] 100 mmol/L 98 - 10 7 mmol/L [facility] CO2 [Moles/Vol] 24 mmol/L 21 - 32 mmol/L [facility] Creatinine [Mass/Vol] 1.28 mg/dL 0.50 - 1.30 mg/dL [facility] GFR/1.73 sq M.predicted among non-blacks MDRD (S/P/Bld) [Vol rate/Area] 68 mL/min/{1.73_m2} - PINF [facility] Glucose [Mass/Vol] 95 mg/dL 74 - 99 [facility] Potassium [Moles/Vol] 4 mmol/L 3.5 - 5.3 mmol/L [facility] Sodium [Moles/Vol] 134 mmol/L Low 136 - 145 mmol/L [facility] Urea nitrogen [Mass/Vol] 13 mg/dL 6 - 23 mg/d L [facility] CBC W Auto Differential pane l (Bld)on 11-17-2024 Basophils (Bld) [#/Vol] 0.06 10*3/uL [facility] Basophils/100 WBC (Bld) 0.5 % 0.0 - 2.0 % [facility] Eosinophils (Bld) [#/Vol] 0.4 10*3/uL [facility] Eosinophils/100 WBC (Bld) 3.6 % 0.0 - 6.0 % [facility] Erythrocyte distribution width (RBC) [Ratio] 16.8 % High 11.5 - 14.5 % [facility] Hematocrit (Bld) [Volume fraction] 26.6 % Low 41.0 - 52.0 % [facility] Hemoglobin (Bld) [Mass/Vol] 8.3 g/dL Low 13.5 - 17.5 g/dL [facility] Immature granulocytes (Bld) [#/Vol] 0.04 10*3/uL [facility] Immature granulocytes/100 WBC (Bld) 0.4 % 0.0 - 0.9 % [facility] Interpretation and review of laboratory results Abnormal [facility] Lymphocytes (Bld) [#/Vol] 2.08 10*3/uL [facility] Lymphocytes/100 WBC (Bld) 19 % 13.0 - 44.0 % [facility] MCH (RBC) [Entitic mass] 26.8 pg 26. 0 - 34.0 pg [facility] MCHC (RBC) [Mass/Vol] 31.2 g/dL Low 32.0 - 36.0 g/dL [facility] MCV (RBC) [Entitic vol] 86 fL 80 - 100 fL [facility] Monocytes (Bld) [#/Vol] 1.09 10*3/uL High [facility] Monocytes/100 WBC (Bld) 9.9 % 2.0 - 10.0 % [facility] Neutrophils (Bld) [#/Vol] 7.3 10*3/uL [facility] Neutrophils/100 WBC (Bld) 66.6 % 40.0 - 80.0 % [facility] Nucleated RBC/100 WBC (Bld) [Ratio] 0 % [facility] Platelets (Bld) [#/Vol] 639 10*3/uL High [facility] RBC (Bld) [#/Vol] 3.1 10*6/uL Low [facility] WBC (Bld) [#/Vol] 11 10*3/uL [facility] Hepatic function 2000 panelo n 11-17-2024 Albumin BCP dye [Mass/Vol] 3.2 g/dL Low 3.4 - 5.0 g/dL [facility] ALP [Catalytic activity/Vol] 83 U/L 33 - 120 U/L [facility] ALT With P-5'-P [Catalytic activity/Vol] 20 U/L 10 - 52 U/L [facility] AST With P-5'-P [Catalytic activity/Vol] 13 U/L 9 - 39 U/L [facility] Bilirubin [Mass/Vol] 0.3 mg/dL 0.0 - 1 .2 mg/dL [facility] Bilirubin.direct [Mass/Vol] 0 mg/dL 0.0 - 0.3 mg/dL [facility] Protein [Mass/Vol] 7.2 g/dL 6.4 - 8.2 g/dL [facility] Magnesiumon 11-17-2024 Magnesium [Mass/Vol] 2.17 mg/dL 1.60 - 2.40 mg/dL [facility] No Panel Informationon 11-17 Interpretation and review of laboratory results Abnormal [facility] Interpretation and review of laboratory results Normal [facility] Phosphoruson 11-17-2024 Phosphate [Mass/Vol] 3.2 mg/dL 2.5 - 4 .9 mg/dL [facility] Basic metabolic 2000 panelon 11-16-2024 Anion gap [Moles/Vol] 15 mmol/L 10 - 2 0 mmol/L [facility] Calcium [Mass/Vol] 9.2 mg/dL 8.6 - 10. 6 mg/dL [facility] Chloride [Moles/Vol] 103 mmol/L 98 - 10 7 mmol/L [facility] CO2 [Moles/Vol] 22 mmol/L 21 - 32 mmol/L [facility] Creatinine [Mass/Vol] 1.25 mg/dL 0.50 - 1.30 mg/dL [facility] GFR/1.73 sq M.predicted among non-blacks MDRD (S/P/Bld) [Vol rate/Area] 70 mL/min/{1.73_m2} - PINF [facility] Glucose [Mass/Vol] 115 mg/dL High 74 - 99 mg[facility] Interpretation and review of laboratory results Abnormal [facility] Potassium [Moles/Vol] 3.7 mmol/L 3.5 - 5.3 mmol/L [facility] Sodium [Moles/Vol] 136 mmol/L 136 - 145 mmol/L [facility] Urea nitrogen [Mass/Vol] 13 mg/dL 6 - 23 mg/d L [facility] CBC W Auto Differential pane l (Bld)on 11-16-2024 Erythrocyte distribution width (RBC) [Ratio] 16.5 % High 11.5 - 14.5 % [facility] Hematocrit (Bld) [Volume fraction] 26.1 % Low 41.0 - 52.0 % [facility] Hemoglobin (Bld) [Mass/Vol] 8.5 g/dL Low 13.5 - 17.5 g/dL [facility] Immature granulocytes (Bld) [#/Vol] 0.05 10*3/uL [facility] Immature granulocytes/100 WBC (Bld) 0.5 % 0.0 - 0.9 % [facility] MCH (RBC) [Entitic mass] 28.4 pg 26. 0 - 34.0 pg [facility] MCHC (RBC) [Mass/Vol] 32.6 g/dL 32.0 - 36.0 g/dL [facility] MCV (RBC) [Entitic vol] 87 fL 80 - 100 fL [facility] Nucleated RBC/100 WBC (Bld) [Ratio] 0 % [facility] Platelets (Bld) [#/Vol] 619 10*3/uL High [facility] RBC (Bld) [#/Vol] 2.99 10*6/uL Low Unive [facility] WBC (Bld) [#/Vol] 10 10*3/uL [facility] Hepatic function 2000 panelo n 11-16-2024 Albumin BCP dye [Mass/Vol] 3 g/dL Low 3.4 - 5.0 g/dL [facility] ALP [Catalytic activity/Vol] 78 U/L 33 - 120 U/L [facility] ALT With P-5'-P [Catalytic activity/Vol] 17 U/L 10 - 52 U/L [facility] AST With P-5'-P [Catalytic activity/Vol] 11 U/L 9 - 39 U/L [facility] Bilirubin [Mass/Vol] 0.2 mg/dL 0.0 - 1 .2 mg/dL [facility] Bilirubin.direct [Mass/Vol] 0 mg/dL 0.0 - 0.3 mg/dL [facility] Interpretation and review of laboratory results Abnormal [facility] Protein [Mass/Vol] 6.5 g/dL 6.4 - 8.2 g/dL [facility] Magnesiumon 11-16-2024 Magnesium [Mass/Vol] 2.08 mg/dL 1.60 - 2.40 mg/dL [facility] Manual differential performe d Ql (Bld)on 11-16-2024 Basophils (Bld) [#/Vol] 0 10*3/uL U [facility] Basophils/100 WBC (Bld) 0 % 0.0 - 2.0 % [facility] Cells Counted Total (Bld) [#] 113 {cells} [facility] Eosinophils (Bld) [#/Vol] 0.26 10*3/uL [facility] Eosinophils/100 WBC (Bld) 2.6 % 0.0 - 6.0 % [facility] Lymphocytes (Bld) [#/Vol] 1.68 10*3/uL [facility] Lymphocytes/100 WBC (Bld) 16.8 % 13.0 - 44.0 % [facility] Monocytes (Bld) [#/Vol] 0.27 10*3/uL [facility] Monocytes/100 WBC (Bld) 2.7 % 2.0 - 10.0 % [facility] RBC morphology finding Nom (Bld) No significant RBC morphology present [facility] Segmented neutrophils (Bld) [#/Vol] 7.79 10*3/uL High [facility] Segmented neutrophils/100 WBC (Bld) 77.9 % 40.0 - 80.0 % [facility] No Panel Informationon 11-16 Interpretation and review of laboratory results Abnormal [facility] Interpretation and review of laboratory results Normal [facility] Phosphoruson 11-16-2024 Phosphate [Mass/Vol] 2.9 mg/dL 2.5 - 4 .9 mg/dL [facility] Bacteria identified Cx Nom ( Unsp spec)Ordered By: Phil Casas on 11-15-2024 Interpretation and review of laboratory results Abnormal [facility] Microscopic observation Gram stain Nom (Unsp spec) No polymorphonuclear leukocytes seen [facility] Microscopic observation Gram stain Nom (Unsp spec) No organisms seen [facility] Biopsyon 11-15-2024 [facility] Work Phone: [facility] Work Phone: CBC W Auto Differential pane l (Bld)on 11-15-2024 Basophils (Bld) [#/Vol] 0.06 10*3/uL [facility] Basophils/100 WBC (Bld) 0.6 % 0.0 - 2.0 % [facility] Eosinophils (Bld) [#/Vol] 0.28 10*3/uL [facility] Eosinophils/100 WBC (Bld) 2.6 % 0.0 - 6.0 % [facility] Erythrocyte distribution width (RBC) [Ratio] 16.4 % High 11.5 - 14.5 % [facility] Hematocrit (Bld) [Volume fraction] 24.9 % Low 41.0 - 52.0 % [facility] Hemoglobin (Bld) [Mass/Vol] 8.1 g/dL Low 13.5 - 17.5 g/dL [facility] Immature granulocytes (Bld) [#/Vol] 0.04 10*3/uL [facility] Immature granulocytes/100 WBC (Bld) 0.4 % 0.0 - 0.9 % [facility] Interpretation and review of laboratory results Abnormal [facility] Lymphocytes (Bld) [#/Vol] 1.3 10*3/uL [facility] Lymphocytes/100 WBC (Bld) 12.2 % 13.0 - 44.0 % [facility] MCH (RBC) [Entitic mass] 26.6 pg 26. 0 - 34.0 pg [facility] MCHC (RBC) [Mass/Vol] 32.5 g/dL 32.0 - 36.0 g/dL [facility] MCV (RBC) [Entitic vol] 82 fL 80 - 100 fL [facility] Monocytes (Bld) [#/Vol] 1.04 10*3/uL High [facility] Monocytes/100 WBC (Bld) 9.7 % 2.0 - 10.0 % [facility] Neutrophils (Bld) [#/Vol] 7.95 10*3/uL High [facility] Neutrophils/100 WBC (Bld) 74.5 % 40.0 - 80.0 % [facility] Nucleated RBC/100 WBC (Bld) [Ratio] 0 % [facility] Platelets (Bld) [#/Vol] 531 10*3/uL High [facility] RBC (Bld) [#/Vol] 3.04 10*6/uL Low [facility] WBC (Bld) [#/Vol] 10.7 10*3/uL [facility] Hepatic function 2000 panelo n 11-15-2024 Albumin BCP dye [Mass/Vol] 3 g/dL Low 3.4 - 5.0 g/dL [facility] ALP [Catalytic activity/Vol] 80 U/L 33 - 120 U/L [facility] ALT With P-5'-P [Catalytic activity/Vol] 21 U/L 10 - 52 U/L [facility] AST With P-5'-P [Catalytic activity/Vol] 18 U/L 9 - 39 U/L [facility] Bilirubin [Mass/Vol] 0.2 mg/dL 0.0 - 1 .2 mg/dL [facility] Bilirubin.direct [Mass/Vol] 0 mg/dL 0.0 - 0.3 mg/dL [facility] Interpretation and review of laboratory results Abnormal [facility] Protein [Mass/Vol] 6.3 g/dL Low 6.4 - 8.2 g/dL [facility] Magnesiumon 11-15-2024 Magnesium [Mass/Vol] 1.93 mg/dL 1.60 - 2.40 mg/dL [facility] Magnesium [Mass/Vol]on 11-15 Interpretation and review of laboratory results Normal [facility] No Panel Informationon 11-15 [facility] Renal function 2000 panelon 11-15-2024 Albumin BCP dye [Mass/Vol] 2.9 g/dL Low 3.4 - 5.0 g/dL [facility] Anion gap [Moles/Vol] 13 mmol/L 10 - 2 0 mmol/L [facility] Calcium [Mass/Vol] 9.4 mg/dL 8.6 - 10. 6 mg/dL [facility] Chloride [Moles/Vol] 105 mmol/L 98 - 10 7 mmol/L [facility] CO2 [Moles/Vol] 24 mmol/L 21 - 32 mmol/L [facility] Creatinine [Mass/Vol] 1.4 mg/dL High 0.50 - 1.30 mg/dL [facility] GFR/1.73 sq M.predicted among non-blacks MDRD (S/P/Bld) [Vol rate/Area] 61 mL/min/{1.73_m2} - PINF [facility] Glucose [Mass/Vol] 116 mg/dL High 74 - 99 mg/[facility] Interpretation and review of laboratory results Abnormal [facility] Phosphate [Mass/Vol] 2.5 mg/dL 2.5 - 4 .9 mg/dL [facility] Potassium [Moles/Vol] 3.7 mmol/L 3.5 - 5.3 mmol/L [facility] Sodium [Moles/Vol] 138 mmol/L 136 - 145 mmol/L [facility] Urea nitrogen [Mass/Vol] 10 mg/dL 6 - 23 mg/d L [facility] Tissue/Wound Culture/SmearOr dered By: Phil Casas on 11-15-2024 Bacteria identified Cx Nom (Unsp spec) (1+) Rare Proteus mirabilis Abnormal [facility] Bacteria identified Cx Nom ( Bld)on 11-14-2024 Interpretation and review of laboratory results Normal [facility] Blood Cultureon 11-14-2024 Bacteria identified Cx Nom (Bld) No growth at 4 days - FINAL REPORT [facility] CBC W Auto Differential pane l (Bld)on 11-14-2024 Basophils (Bld) [#/Vol] 0.06 10*3/uL [facility] Basophils/100 WBC (Bld) 0.6 % 0.0 - 2.0 % [facility] Eosinophils (Bld) [#/Vol] 0.4 10*3/uL [facility] Eosinophils/100 WBC (Bld) 4.3 % 0.0 - 6.0 % [facility] Erythrocyte distribution width (RBC) [Ratio] 16.5 % High 11.5 - 14.5 % [facility] Hematocrit (Bld) [Volume fraction] 24.1 % Low 41.0 - 52.0 % [facility] Hemoglobin (Bld) [Mass/Vol] 7.7 g/dL Low 13.5 - 17.5 g/dL [facility] Immature granulocytes (Bld) [#/Vol] 0.05 10*3/uL [facility] Immature granulocytes/100 WBC (Bld) 0.5 % 0.0 - 0.9 % [facility] Interpretation and review of laboratory results Abnormal [facility] Lymphocytes (Bld) [#/Vol] 1.02 10*3/uL Low [facility] Lymphocytes/100 WBC (Bld) 11 % 13.0 - 44.0 % [facility] MCH (RBC) [Entitic mass] 27.6 pg 26. 0 - 34.0 pg [facility] MCHC (RBC) [Mass/Vol] 32 g/dL 32.0 - 36.0 g/dL [facility] MCV (RBC) [Entitic vol] 86 fL 80 - 100 fL [facility] Monocytes (Bld) [#/Vol] 1.05 10*3/uL High [facility] Monocytes/100 WBC (Bld) 11.4 % 2.0 - 10.0 % [facility] Neutrophils (Bld) [#/Vol] 6.67 10*3/uL [facility] Neutrophils/100 WBC (Bld) 72.2 % 40.0 - 80.0 % [facility] Nucleated RBC/100 WBC (Bld) [Ratio] 0 % [facility] Platelets (Bld) [#/Vol] 507 10*3/uL High [facility] RBC (Bld) [#/Vol] 2.79 10*6/uL Low [facility] WBC (Bld) [#/Vol] 9.3 10*3/uL [facility] Calcium (24H U) [Mass/Time]o n 11-14-2024 Calcium, 24 Hour Urine 384 [facility] Collection duration (Unsp spec) 24 hrs [facility] Creatinine (24H U) [Mass/Time] 1.62 [facility] Creatinine (24H U) [Mass/Vol] 52.3 mg/dL 20.0 - 370.0 mg/dL [facility] Interpretation and review of laboratory results Abnormal [facility] Specimen volume (24H U) 3.1 L U [facility] Calcium, 24 Hour Urineon Calcium (24H U) [Mass/Time] 12.4 mg/dL [facility] Cobalamin (Vitamin B12) [Mas s/Vol]on 11-14-2024 Interpretation and review of laboratory results Normal [facility] Comprehensive metabolic 2000 panelon 11-14-2024 Albumin BCP dye [Mass/Vol] 2.7 g/dL Low 3.4 - 5.0 g/dL [facility] ALP [Catalytic activity/Vol] 80 U/L 33 - 120 U/L [facility] ALT With P-5'-P [Catalytic activity/Vol] 17 U/L 10 - 52 U/L [facility] Anion gap [Moles/Vol] 13 mmol/L 10 - 2 0 mmol/L [facility] AST With P-5'-P [Catalytic activity/Vol] 15 U/L 9 - 39 U/L [facility] Bilirubin [Mass/Vol] 0.3 mg/dL 0.0 - 1 .2 mg/dL [facility] Calcium [Mass/Vol] 9.1 mg/dL 8.6 - 10. 6 mg/dL [facility] Chloride [Moles/Vol] 107 mmol/L 98 - 10 7 mmol/L [facility] CO2 [Moles/Vol] 22 mmol/L 21 - 32 mmol/L [facility] Creatinine [Mass/Vol] 1.38 mg/dL High 0.50 - 1.30 mg/dL [facility] GFR/1.73 sq M.predicted among non-blacks MDRD (S/P/Bld) [Vol rate/Area] 62 mL/min/{1.73_m2} - PINF [facility] Glucose [Mass/Vol] 97 mg/dL 74 - 99 mg/dL Uni [facility] Interpretation and review of laboratory results Abnormal [facility] Potassium [Moles/Vol] 3.8 mmol/L 3.5 - 5.3 mmol/L [facility] Protein [Mass/Vol] 5.9 g/dL Low 6.4 - 8.2 g/dL [facility] Sodium [Moles/Vol] 138 mmol/L 136 - 145 mmol/L [facility] Urea nitrogen [Mass/Vol] 8 mg/dL 6 - 23 mg/d L [facility] Folateon 11-14-2024 Folate [Mass/Vol] 4.6 ng/mL Low 5.0 - PINF ng/mL [facility] Folate [Mass/Vol]on 11-14-19 Interpretation and review of laboratory results Abnormal [facility] IgAon 11-14-2024 IgA [Mass/Vol] 503 mg/dL High 70 - 400 mg/dL [facility] Work Phone: IgA [Mass/Vol]on 11-14-2024 Interpretation and review of laboratory results Abnormal [facility] Work Phone: [phone] [facility] Work Phone: IgGOrdered By: Ruba guy on 11-14-2024 IgG [Mass/Vol] 1160 mg/dL 700 - 1600 mg/dL [facility] IgG [Mass/Vol]Ordered By: Nik Abel on 11-14-2024 Interpretation and review of laboratory results Normal [facility] IgMon 11-14-2024 IgM [Mass/Vol] 60 mg/dL 40 - 230 mg/dL [facility] Work Phone: IgM [Mass/Vol]on 11-14-2024 Interpretation and review of laboratory results Normal [facility] Work Phone: [facility] Work Phone: M. tuberculosis stim IFN-g a nd spot count panel (Bld)on 11-14-2024 Gamma interferon negative control spot count (Bld) [#] Passed [facility] M. tuberculosis stim IFN-g CFP10 Ag spot count (Bld) [#] 4 [facility] M. tuberculosis stim IFN-g ESAT-6 Ag spot count (Bld) [#] 0 [facility] M. tuberculosis stim IFN-g Ql (Bld) [Interp] Negative Negative [facility] Mitogen stimulated gamma interferon positive control spot count (Bld) [#] Passed [facility] Magnesiumon 11-14-2024 Magnesium [Mass/Vol] 1.78 mg/dL 1.60 - 2.40 mg/dL [facility] Magnesium [Mass/Vol]on 11-14 Interpretation and review of laboratory results Normal [facility] No Panel Informationon 11-14 [facility] PTH-Related Peptideon 2024 Parathyrin related protein [Moles/Vol] 12 pmol/L High < or = 4.2 [facility] Parathyrin related protein [ Moles/Vol]on 11-14-2024 Interpretation and review of laboratory results Abnormal [facility] Pathologist review Pathologi st comment (Bld) [Interp]Ordered By: Jose C Hensley on 11-14-2024 Pathologist Review-CBC Differential Thrombocytosis favor reactive. Anemia with no specific morphologic findings. [facility] Work Phone: [facility] Work Phone: Vitamin B12on 11-14-2024 Cobalamin (Vitamin B12) [Mass/Vol] 328 pg/mL 211 - 911 pg/mL [facility] 1,25-dihydroxyvitamin D3 [Ma ss/Vol]on 11-13-2024 1,25-dihydroxyvitamin D [Mass/Vol] 35.9 pg/mL 19.9 - 79.3 pg/mL [facility] Blood type and Indirect anti body screen panel (Bld)on 11-13-2024 ABO group Nom (Bld) [facility] antibody screen Ql Negative [facility] D Ag Ql (Bld) Positive [facility] CBC W Auto Differential pane l (Bld)Ordered By: Seble Tate on 11-13-2024 Basophils (Bld) [#/Vol] 0.02 10*3/uL [facility] Basophils/100 WBC (Bld) 0.4 % 0.0 - 2.0 % [facility] Eosinophils (Bld) [#/Vol] 0.2 10*3/uL [facility] Eosinophils/100 WBC (Bld) 3.6 % 0.0 - 6.0 % [facility] Erythrocyte distribution width (RBC) [Ratio] 16.7 % High 11.5 - 14.5 % [facility] Hematocrit (Bld) [Volume fraction] 16 % Low 41.0 - 52.0 % [facility] Hemoglobin (Bld) [Mass/Vol] 4.9 g/dL Critically low 13.5 - 17.5 g/dL [facility] Immature granulocytes (Bld) [#/Vol] 0.01 10*3/uL [facility] Immature granulocytes/100 WBC (Bld) 0.2 % 0.0 - 0.9 % [facility] Interpretation and review of laboratory results Abnormal [facility] Lymphocytes (Bld) [#/Vol] 0.4 10*3/uL Low [facility] Lymphocytes/100 WBC (Bld) 7.1 % 13.0 - 44.0 % [facility] MCH (RBC) [Entitic mass] 28.3 pg 26. 0 - 34.0 pg [facility] MCHC (RBC) [Mass/Vol] 30.6 g/dL Low 32.0 - 36.0 g/dL [facility] MCV (RBC) [Entitic vol] 93 fL 80 - 100 fL [facility] Monocytes (Bld) [#/Vol] 0.55 10*3/uL [facility] Monocytes/100 WBC (Bld) 9.8 % 2.0 - 10.0 % [facility] Neutrophils (Bld) [#/Vol] 4.44 10*3/uL [facility] Neutrophils/100 WBC (Bld) 78.9 % 40.0 - 80.0 % [facility] Nucleated RBC/100 WBC (Bld) [Ratio] 0 % [facility] Platelets (Bld) [#/Vol] 306 10*3/uL [facility] RBC (Bld) [#/Vol] 1.73 10*6/uL Low [facility] WBC (Bld) [#/Vol] 5.6 10*3/uL [facility] CBC W Auto Differential pane l (Bld)on 11-13-2024 Basophils (Bld) [#/Vol] 0.07 10*3/uL [facility] Basophils/100 WBC (Bld) 0.6 % 0.0 - 2.0 % [facility] Eosinophils (Bld) [#/Vol] 0.44 10*3/uL [facility] Eosinophils/100 WBC (Bld) 3.9 % 0.0 - 6.0 % [facility] Erythrocyte distribution width (RBC) [Ratio] 16.6 % High 11.5 - 14.5 % [facility] Hematocrit (Bld) [Volume fraction] 26.2 % Low 41.0 - 52.0 % [facility] Hemoglobin (Bld) [Mass/Vol] 8.3 g/dL Low 13.5 - 17.5 g/dL [facility] Immature granulocytes (Bld) [#/Vol] 0.11 10*3/uL [facility] Immature granulocytes/100 WBC (Bld) 1 % High 0.0 - 0.9 % [facility] Interpretation and review of laboratory results Abnormal [facility] Lymphocytes (Bld) [#/Vol] 1.43 10*3/uL [facility] Lymphocytes/100 WBC (Bld) 12.8 % 13.0 - 44.0 % [facility] MCH (RBC) [Entitic mass] 27.9 pg 26. 0 - 34.0 pg [facility] MCHC (RBC) [Mass/Vol] 31.7 g/dL Low 32.0 - 36.0 g/dL [facility] MCV (RBC) [Entitic vol] 88 fL 80 - 100 fL [facility] Monocytes (Bld) [#/Vol] 1.07 10*3/uL High [facility] Monocytes/100 WBC (Bld) 9.6 % 2.0 - 10.0 % [facility] Neutrophils (Bld) [#/Vol] 8.02 10*3/uL High [facility] Neutrophils/100 WBC (Bld) 72.1 % 40.0 - 80.0 % [facility] Nucleated RBC/100 WBC (Bld) [Ratio] 0 % [facility] Platelets (Bld) [#/Vol] 576 10*3/uL High [facility] RBC (Bld) [#/Vol] 2.97 10*6/uL Low [facility] WBC (Bld) [#/Vol] 11.1 10*3/uL [facility] CBC panel Auto (Bld)on 11-13 Erythrocyte distribution width (RBC) [Ratio] 16.4 % High 11.5 - 14.5 % [facility] Hematocrit (Bld) [Volume fraction] 25.5 % Low 41.0 - 52.0 % [facility] Hemoglobin (Bld) [Mass/Vol] 8.2 g/dL Low 13.5 - 17.5 g/dL [facility] Interpretation and review of laboratory results Abnormal [facility] MCH (RBC) [Entitic mass] 27.8 pg 26. 0 - 34.0 pg [facility] MCHC (RBC) [Mass/Vol] 32.2 g/dL 32.0 - 36.0 g/dL [facility] MCV (RBC) [Entitic vol] 86 fL 80 - 100 fL [facility] Nucleated RBC/100 WBC (Bld) [Ratio] 0 % [facility] Platelets (Bld) [#/Vol] 570 10*3/uL High [facility] RBC (Bld) [#/Vol] 2.95 10*6/uL [facility] WBC (Bld) [#/Vol] 9.4 10*3/uL [facility] Calcium, ionizedon Calcium.ionized (Bld) [Moles/Vol] 1.06 mmol/L Low 1.1 - 1.33 mmol/L [facility] Calcium.ionized (Bld) [Moles /Vol]on 11-13-2024 Interpretation and review of laboratory results Abnormal [facility] Comprehensive metabolic 2000 panelon 11-13-2024 Albumin BCP dye [Mass/Vol] 2.8 g/dL Low 3.4 - 5.0 g/dL [facility] ALP [Catalytic activity/Vol] 89 U/L 33 - 120 U/L [facility] ALT With P-5'-P [Catalytic activity/Vol] 17 U/L 10 - 52 U/L [facility] Anion gap [Moles/Vol] 11 mmol/L 10 - 2 0 mmol/L [facility] AST With P-5'-P [Catalytic activity/Vol] 15 U/L 9 - 39 U/L [facility] Bilirubin [Mass/Vol] 0.3 mg/dL 0.0 - 1 .2 mg/dL [facility] Calcium [Mass/Vol] 9.8 mg/dL 8.6 - 10. 6 mg/dL [facility] Chloride [Moles/Vol] 108 mmol/L High 98 - 10 7 mmol/L [facility] CO2 [Moles/Vol] 23 mmol/L 21 - 32 mmol/L [facility] Creatinine [Mass/Vol] 1.4 mg/dL High 0.50 - 1.30 mg/dL [facility] GFR/1.73 sq M.predicted among non-blacks MDRD (S/P/Bld) [Vol rate/Area] 61 mL/min/{1.73_m2} - PINF [facility] Glucose [Mass/Vol] 117 mg/dL High 74 - 99 mg/dL [facility] Interpretation and review of laboratory results Abnormal [facility] Potassium [Moles/Vol] 3.6 mmol/L 3.5 - 5.3 mmol/L [facility] Protein [Mass/Vol] 5.9 g/dL Low 6.4 - 8.2 g/dL [facility] Sodium [Moles/Vol] 138 mmol/L 136 - 145 mmol/L [facility] Urea nitrogen [Mass/Vol] 9 mg/dL 6 - 23 mg/d L [facility] Albumin BCP dye [Mass/Vol] 2.8 g/dL Low 3.4 - 5.0 g/dL [facility] ALP [Catalytic activity/Vol] 79 U/L 33 - 120 U/L [facility] ALT With P-5'-P [Catalytic activity/Vol] 16 U/L 10 - 52 U/L [facility] Anion gap [Moles/Vol] 12 mmol/L 10 - 2 0 mmol/L [facility] AST With P-5'-P [Catalytic activity/Vol] 13 U/L 9 - 39 U/L [facility] Bilirubin [Mass/Vol] 0.4 mg/dL 0.0 - 1 .2 mg/dL [facility] Calcium [Mass/Vol] 11.1 mg/dL High 8.6 - 10. 6 mg/dL [facility] Chloride [Moles/Vol] 106 mmol/L 98 - 10 7 mmol/L [facility] CO2 [Moles/Vol] 25 mmol/L 21 - 32 mmol/L [facility] Creatinine [Mass/Vol] 1.41 mg/dL High 0.50 - 1.30 mg/dL [facility] GFR/1.73 sq M.predicted among non-blacks MDRD (S/P/Bld) [Vol rate/Area] 60 mL/min/{1.73_m2} Low - PINF [facility] Glucose [Mass/Vol] 106 mg/dL High 74 - 99 mg/dL [facility] Potassium [Moles/Vol] 3.7 mmol/L 3.5 - 5.3 mmol/L [facility] Protein [Mass/Vol] 6.2 g/dL Low 6.4 - 8.2 g/dL [facility] Sodium [Moles/Vol] 139 mmol/L 136 - 145 mmol/L [facility] Urea nitrogen [Mass/Vol] 9 mg/dL 6 - 23 mg/d L [facility] Gas panel (BldV)on 5 Anion gap 4 (BldV) [Moles/Vol] 9 mmol/L Low 10.0 - 25.0 mmol/L [facility] Base excess Calc (BldV) [Moles/Vol] -1.8000 mmol/L -2.0 - 3.0 mmol/L [facility] Calcium.ionized (BldV) [Moles/Vol] 1.43 mmol/L High 1.10 - 1.33 mmol/L [facility] Chloride (BldV) [Moles/Vol] 110 mmol/L High 98 - 107 mmol/L [facility] CO2 (BldV) [Partial pressure] 29 mm[Hg] Low [facility] Glucose [Mass/Vol] 130 mg/dL High 74 - 99 mg/dL [facility] HCO3 (Bld) [Moles/Vol] 21.6 mmol/L Low 22.0 - 26.0 mmol/L [facility] Hematocrit Est (Bld) [Volume fraction] 16 % Low 41.0 - 52.0 % [facility] Hemoglobin (Bld) [Mass/Vol] 5.3 g/dL Critically low 13.5 - 17.5 g/dL [facility] Inhaled oxygen concentration 21 % [facility] Interpretation and review of laboratory results Abnormal [facility] Lactate (BldV) [Moles/Vol] 1.5 mmol/L 0.4 - 2.0 mmol/L [facility] Oxygen (BldV) [Partial pressure] 75 mm[Hg] High [facility] Oxygen saturation in Venous blood 99 % High 45 - 75 % [facility] Oxyhemoglobin (BldV) [Mass fraction] 96 % High 45.0 - 75.0 % [facility] pH (BldV) 7.48 [pH] High 7.33 - 7.43 pH [facility] Potassium (BldV) [Moles/Vol] 3.8 mmol/L 3.5 - 5.3 mmol/L [facility] Sodium (BldV) [Moles/Vol] 137 mmol/L 136 - 145 mmol/L [facility] Glucose Test strip manual (B ld) [Mass/Vol]on 11-13-2024 Glucose [Mass/Vol] 96 mg/dL 74 - 99 mg/dL [facility] Interpretation and review of laboratory results Normal [facility] Haptoglobinon 11-13-2024 Haptoglobin Nephelometry [Mass/Vol] 319 mg/dL High 30 - 200 mg/dL [facility] Haptoglobin Nephelometry [Ma ss/Vol]on 11-13-2024 Interpretation and review of laboratory results Abnormal [facility] Hepatic function 2000 panelo n 11-13-2024 Albumin BCP dye [Mass/Vol] 2.8 g/dL Low 3.4 - 5.0 g/dL [facility] ALP [Catalytic activity/Vol] 89 U/L 33 - 120 U/L [facility] ALT With P-5'-P [Catalytic activity/Vol] 17 U/L 10 - 52 U/L [facility] AST With P-5'-P [Catalytic activity/Vol] 15 U/L 9 - 39 U/L [facility] Bilirubin [Mass/Vol] 0.3 mg/dL 0.0 - 1 .2 mg/dL [facility] Bilirubin.direct [Mass/Vol] 0.1 mg/dL 0.0 - 0.3 mg/dL [facility] Interpretation and review of laboratory results Abnormal [facility] Protein [Mass/Vol] 5.9 g/dL Low 6.4 - 8.2 g/dL [facility] Lactateon 11-13-2024 Lactate [Moles/Vol] 1.5 mmol/L 0.4 - 2. 0 mmol/L [facility] Lactate Dehydrogenaseon 10-20 LDH Lactate to pyruvate reaction [Catalytic activity/Vol] 62 U/L Low 84 - 246 U/L [facility] Lactate [Moles/Vol]on 2024 Interpretation and review of laboratory results Normal [facility] Magnesiumon 11-13-2024 Magnesium [Mass/Vol] 1.23 mg/dL Low 1.60 - 2.40 mg/dL [facility] Magnesium [Mass/Vol] 1.86 mg/dL 1.60 - 2.40 mg/dL [facility] Magnesium [Mass/Vol]on 11-13 Interpretation and review of laboratory results Abnormal [facility] Interpretation and review of laboratory results Normal [facility] No Panel Informationon 11-13 Interpretation and review of laboratory results Abnormal [facility] Interpretation and review of laboratory results Abnormal [facility] Phosphate [Mass/Vol]on 11-13 Interpretation and review of laboratory results Normal [facility] Phosphoruson 11-13-2024 Phosphate [Mass/Vol] 3 mg/dL 2.5 - 4 .9 mg/dL [facility] Renal function 2000 panelon 11-13-2024 Albumin BCP dye [Mass/Vol] 2.1 g/dL Low 3.4 - 5.0 g/dL [facility] Anion gap [Moles/Vol] 9 mmol/L [facility] Calcium [Mass/Vol] 7.4 mg/dL Low 8.6 - 10. 6 mg/dL [facility] Chloride [Moles/Vol] 120 mmol/L High 98 - 10 7 mmol/L [facility] CO2 [Moles/Vol] 17 mmol/L Low 21 - 32 mmol/L [facility] Creatinine [Mass/Vol] 0.93 mg/dL 0.50 - 1.30 mg/dL [facility] eGFR - PINF [facility] Glucose [Mass/Vol] 83 mg/dL 74 - 99 mg/dL [facility] Phosphate [Mass/Vol] 1.6 mg/dL Low 2.5 - 4 .9 mg/dL [facility] Potassium [Moles/Vol] 2.7 mmol/L Critically low 3.5 - 5.3 mmol/L [facility] Sodium [Moles/Vol] 143 mmol/L 136 - 145 mmol/L [facility] Urea nitrogen [Mass/Vol] 6 mg/dL 6 - 23 mg/d L [facility] Reticulocytes panel (Bld)on 11-13-2024 Hemoglobin (Reticulocytes) [Entitic mass] 24 pg Low 28 - 38 pg [facility] Immature Retic fraction 15.5 % NINF - 16.0 % [facility] Interpretation and review of laboratory results Abnormal [facility] Reticulocytes (Bld) [#/Vol] 0.023 10*3/uL [facility] Reticulocytes/100 RBC (Bld) 1.3 % 0.5 - 2.0 % [facility] Serum Protein Electrophoresi s + ImmunofixationOrdered By: Marin Mesa on 11-13-2024 Albumin [Mass/Vol] 2.9 g/dL Low 3.4 - 5.0 g/dL [facility] Work Phone: [phone] Alpha 1 Globulin 0.5 g/dL 0.2 - 0.6 g/dL [facility] Work Phone: [phone] Alpha 2 Globulin 0.9 g/dL 0.4 - 1.1 g/dL [facility] Work Phone: [phone] Beta Globulin 1 g/dL 0.5 - 1.2 g/dL [facility] Work Phone: [phone] Gamma 1.1 g/dL 0.5 - 1.4 g/dL [facility] Work Phone: [phone] Immunofixation Comment [facility] Work Phone: [phone] Interpretation and review of laboratory results Abnormal [facility] Work Phone: [phone] Path Review - Serum Immunofixation [facility] Work Phone: [phone] Path Review - Serum Protein [facility] Work Phone: [phone] Protein [Mass/Vol] 0.2 g/dL [facility] Work Phone: [phone] Protein Electrophoresis Comment [facility] Work Phone: [phone] [facility] Work Phone: [phone] Slide Requeston 11-13-2024 [facility] Work Phone: TSH with reflex to Free T4 i f abnormalon 11-13-2024 Interpretation and review of laboratory results Normal [facility] TSH Qn 1.25 m[IU]/L [facility] Vancomycinon 11-13-2024 Vancomycin [Mass/Vol] 26.4 ug/mL High 5.0 - 20.0 ug/mL [facility] Vancomycin [Mass/Vol]on 10-20 [facility] Biopsyon 11-12-2024 [facility] Work Phone: [facility] Work Phone: CBC W Auto Differential pane l (Bld)on 11-12-2024 Basophils (Bld) [#/Vol] 0.07 10*3/uL [facility] Basophils/100 WBC (Bld) 0.6 % 0.0 - 2.0 % [facility] Eosinophils (Bld) [#/Vol] 0.55 10*3/uL [facility] Eosinophils/100 WBC (Bld) 4.8 % 0.0 - 6.0 % [facility] Erythrocyte distribution width (RBC) [Ratio] 16.7 % High 11.5 - 14.5 % [facility] Hematocrit (Bld) [Volume fraction] 27.2 % Low 41.0 - 52.0 % [facility] Hemoglobin (Bld) [Mass/Vol] 8.2 g/dL Low 13.5 - 17.5 g/dL [facility] Immature granulocytes (Bld) [#/Vol] 0.04 10*3/uL [facility] Immature granulocytes/100 WBC (Bld) 0.3 % 0.0 - 0.9 % [facility] Interpretation and review of laboratory results Abnormal [facility] Lymphocytes (Bld) [#/Vol] 1.73 10*3/uL [facility] Lymphocytes/100 WBC (Bld) 15.1 % 13.0 - 44.0 % [facility] MCH (RBC) [Entitic mass] 27 pg 26. 0 - 34.0 pg [facility] MCHC (RBC) [Mass/Vol] 30.1 g/dL Low 32.0 - 36.0 g/dL [facility] MCV (RBC) [Entitic vol] 90 fL 80 - 100 fL [facility] Monocytes (Bld) [#/Vol] 1.26 10*3/uL High [facility] Monocytes/100 WBC (Bld) 11 % 2.0 - 10.0 % [facility] Neutrophils (Bld) [#/Vol] 7.8 10*3/uL High [facility] Neutrophils/100 WBC (Bld) 68.2 % 40.0 - 80.0 % [facility] Nucleated RBC/100 WBC (Bld) [Ratio] 0 % [facility] Platelets (Bld) [#/Vol] 576 10*3/uL High [facility] RBC (Bld) [#/Vol] 3.04 10*6/uL Low [facility] WBC (Bld) [#/Vol] 11.5 10*3/uL [facility] Comprehensive metabolic 2000 panelon 11-12-2024 Albumin BCP dye [Mass/Vol] 2.9 g/dL Low 3.4 - 5.0 g/dL [facility] ALP [Catalytic activity/Vol] 73 U/L 33 - 120 U/L [facility] ALT With P-5'-P [Catalytic activity/Vol] 12 U/L 10 - 52 U/L [facility] Anion gap [Moles/Vol] 13 mmol/L 10 - 2 0 mmol/L [facility] AST With P-5'-P [Catalytic activity/Vol] 7 U/L Low 9 - 39 U/L [facility] Bilirubin [Mass/Vol] 0.3 mg/dL 0.0 - 1 .2 mg/dL [facility] Calcium [Mass/Vol] 11.4 mg/dL High 8.6 - 10. 6 mg/dL [facility] Chloride [Moles/Vol] 107 mmol/L 98 - 10 7 mmol/L [facility] CO2 [Moles/Vol] 23 mmol/L 21 - 32 mmol/L [facility] Creatinine [Mass/Vol] 1.49 mg/dL High 0.50 - 1.30 mg/dL [facility] GFR/1.73 sq M.predicted among non-blacks MDRD (S/P/Bld) [Vol rate/Area] 56 mL/min/{1.73_m2} Low - PINF [facility] Glucose [Mass/Vol] 93 mg/dL 74 - 99 mg/dL [facility] Interpretation and review of laboratory results Abnormal [facility] Potassium [Moles/Vol] 3.6 mmol/L 3.5 - 5.3 mmol/L [facility] Protein [Mass/Vol] 6.1 g/dL Low 6.4 - 8.2 g/dL [facility] Sodium [Moles/Vol] 139 mmol/L 136 - 145 mmol/L [facility] Urea nitrogen [Mass/Vol] 11 mg/dL 6 - 23 mg/d L [facility] HCV RNA panel MERON+probeOrder ed By: Cassandra Guzmán on 11-12-2024 HCV RNA MERON+probe [Log units/Vol] [facility] HCV RNA MERON+probe Qn Not detected Not detected [facility] Magnesiumon 11-12-2024 Magnesium [Mass/Vol] 1.91 mg/dL 1.60 - 2.40 mg/dL [facility] Magnesium [Mass/Vol]on 11-12 Interpretation and review of laboratory results Normal [facility] No Panel Informationon 11-12 [facility] Comprehensive metabolic 2000 panelon 11-11-2024 Albumin BCP dye [Mass/Vol] 2.8 g/dL Low 3.4 - 5.0 g/dL [facility] ALP [Catalytic activity/Vol] 71 U/L 33 - 120 U/L [facility] ALT With P-5'-P [Catalytic activity/Vol] 9 U/L Low 10 - 52 U/L [facility] Anion gap [Moles/Vol] 9 mmol/L Low 10 - 2 0 mmol/L [facility] AST With P-5'-P [Catalytic activity/Vol] 6 U/L Low 9 - 39 U/L [facility] Bilirubin [Mass/Vol] 0.3 mg/dL 0.0 - 1 .2 mg/dL [facility] Calcium [Mass/Vol] 11.2 mg/dL High 8.6 - 10. 6 mg/dL [facility] Chloride [Moles/Vol] 108 mmol/L High 98 - 10 7 mmol/L [facility] CO2 [Moles/Vol] 26 mmol/L 21 - 32 mmol/L [facility] Creatinine [Mass/Vol] 1.4 mg/dL High 0.50 - 1.30 mg/dL [facility] GFR/1.73 sq M.predicted among non-blacks MDRD (S/P/Bld) [Vol rate/Area] 61 mL/min/{1.73_m2} - PINF [facility] Glucose [Mass/Vol] 101 mg/dL High 74 - 99 mg/dL [facility] Potassium [Moles/Vol] 3.8 mmol/L 3.5 - 5.3 mmol/L [facility] Protein [Mass/Vol] 5.6 g/dL Low 6.4 - 8.2 g/dL [facility] Sodium [Moles/Vol] 139 mmol/L 136 - 145 mmol/L [facility] Urea nitrogen [Mass/Vol] 11 mg/dL 6 - 23 mg/d L [facility] HBV core Ab Ql (S)on 025 Interpretation and review of laboratory results Normal [facility] HBV surface Ab Qn (S)on 10-20 Interpretation and review of laboratory results Normal [facility] HBV surface Ag IA Qlon 11-11 Interpretation and review of laboratory results [facility] HIV 1+2 Ab+HIV1 p24 Ag IA Ql on 11-11-2024 Interpretation and review of laboratory results [facility] HIV 1/2 Antigen/Antibody Scr een with Reflex to Confirmationon 11-11-2024 HIV 1+2 Ab+HIV1 p24 Ag IA Ql Non-Reactive Nonreactive [facility] Hepatitis B Core Antibody, T otalon 11-11-2024 HBV core Ab Ql (S) Non-Reactive Nonreactive [facility] Hepatitis B surface antibody on 11-11-2024 HBV surface Ab Qn (S) NINF [facility] Hepatitis B surface antigeno n 11-11-2024 HBV surface Ag IA Ql Non-Reactive [facility] Magnesiumon 11-11-2024 Magnesium [Mass/Vol] 1.98 mg/dL 1.60 - 2.40 mg/dL [facility] Magnesium [Mass/Vol]on 11-11 Interpretation and review of laboratory results Normal [facility] No Panel Informationon 11-11 Interpretation and review of laboratory results Abnormal [facility] Phosphoruson 11-11-2024 Phosphate [Mass/Vol] 2.7 mg/dL 2.5 - 4 .9 mg/dL [facility] Urine Protein Electrophoresi son 11-11-2024 Albumin Elph (U) [Mass fraction] 16.4 % [facility] Work Phone: Alpha 1 globulin Elph (U) [Mass fraction] 29.9 % [facility] Work Phone: Alpha 2 globulin Elph (U) [Mass fraction] 9.4 % [facility] Work Phone: Beta globulin Elph (U) [Mass fraction] 21.8 % [facility] Work Phone: Gamma globulin Elph (U) [Mass fraction] 22.5 % [facility] Work Phone: Path Review-Urine Protein Electrophoresis [facility] Work Phone: Urine Electrophoresis Comment Normal. [facility] Work Phone: [facility] Work Phone: Vancomycinon 11-11-2024 Vancomycin [Mass/Vol] 27 ug/mL High 5.0 - 20.0 ug/mL [facility] Vancomycin [Mass/Vol]on 10-20 [facility] ECG 12-LEADon 11-10-2024 ECG 12-LEAD Ventricular Rate 77 Atrial Rate 77 P-R Interval 146 QRS Duration 108 Q-T Interval 368 QTC Calculation(Bazett) 416 P Macon 55 R [place] 72 T [place] 66 QRS Count 13 Q Onset 211 [...] Villa ([id number]) on 11/28/2024 9:05:21 AM Normal [facility] 30on 11-09-2024 30 Problem: Knowledge Deficit [...] discharge needs are met Outcome: Progressing Normal [facility] CBC W Auto Differential pane l (Bld)Ordered By: Marysol El on 11-09-2024 Erythrocyte distribution width (RBC) [Ratio] 16.4 % High 11.5 - 15.0 % [facility] Hematocrit (Bld) [Volume fraction] 27.7 % Low 40.0 - 52.0 % [facility] Hemoglobin (Bld) [Mass/Vol] 8.8 g/dL Low 13.0 - 18.0 g/dL [facility] Interpretation and review of laboratory results Abnormal [facility] MCH (RBC) [Entitic mass] 27.7 pg 26. 0 - 34.0 pg [facility] MCHC (RBC) [Mass/Vol] 31.8 % 30.5 - 36.0 % [facility] MCV (RBC) [Entitic vol] 87.1 fL 77.0 - 99.0 fL [facility] Platelet mean volume (Bld) [Entitic vol] 8.8 fL Low 9.0 - 12.7 fL [facility] Platelets (Bld) [#/Vol] 524 10*3/uL High 140 - 440 10*3/uL [facility] RBC (Bld) [#/Vol] 3.18 10*6/uL Low 4.40 - 5.9 0 10*6/uL [facility] WBC (Bld) [#/Vol] 13 10*3/uL High 3.6 - 10.7 10*3/uL [facility] CBC WITH AUTO DIFFERENTIALon 11-09-2024 Erythrocyte distribution width (RBC) [Ratio] 16.4 % High 11.5-15.0 [facility] Comment on above: Performed By: #### L [id number], [id number] ####Heating And Air Conditioning Mechanic: JAZLYN JIMENEZ ([id number])[address] Hematocrit (Bld) [Volume fraction] 27.7 % Low 40.0-52.0 [facility] Comment on above: Performed By: #### L [id number], [id number] ####Heating And Air Conditioning Mechanic: JAZLYN JIMENEZ ([id number])[facility])[address] [place] [address] Hemoglobin (Bld) [Mass/Vol] 8.8 g/dL Low 13.0-18.0 [facility] Comment on above: Performed By: #### L [id number], [id number] ####Heating And Air Conditioning Mechanic: JAZLYN JIMENEZ ([id number])[address] MCH (RBC) [Entitic mass] 27.7 pg Normal 26.0-34.0 [facility] Comment on above: Performed By: #### L [id number], [id number] ####Heating And Air Conditioning Mechanic: JAZLYN JIMENEZ ([id number])[address] MCHC 31.8 % Normal 30.5-36.0 [facility] Comment on above: Performed By: #### L [id number], [id number] ####Heating And Air Conditioning Mechanic: JAZLYN JIMENEZ ([phone])[facility])[address] [place] [address] MCV (RBC) [Entitic vol] 87.1 fL Normal 77.0-99.0 [facility] Comment on above: Performed By: #### L [id number], [id number] ####Heating And Air Conditioning Mechanic: JAZLYN JIMENEZ ([id number])[facility])[address] [place] [address] Platelet mean volume (Bld) [Entitic vol] 8.8 fL Low 9.0-12.7 [facility] Comment on above: Performed By: #### L [id number], [id number] ####Heating And Air Conditioning Mechanic: JAZLYN JIMENEZ ([id number])[facility])[address] [place] [address] Platelets (Bld) [#/Vol] 524 10*3/uL High 140-440 [facility] Comment on above: Performed By: #### L [id number], [id number] ####Heating And Air Conditioning Mechanic: JAZLYN JIMENEZ ([id number])[facility] ([facility])[address] [place] [address] RBC (Bld) [#/Vol] 3.18 10*6/uL Low 4.40-5.90 [facility] Comment on above: Performed By: #### L [id number], [id number] ####Heating And Air Conditioning Mechanic: JAZLYN JIMENEZ ([id number])[facility] ([facility])[address] [place] [address] WBC (Bld) [#/Vol] 13.0 10*3/uL High 3.6-10.7 [facility] Comment on above: Performed By: #### L [id number], [id number] ####Heating And Air Conditioning Mechanic: JAZLYN JIMENEZ ([id number])[facility])[address] [place] [address] COMPREHENSIVE METABOLIC PANE Yuriy 11-09-2024 Albumin [Mass/Vol] 2.5 g/dL Low 3.5-5.0 [facility] Comment on above: Performed By: #### L [id number] ####Heating And Air Conditioning Mechanic: JAZLYN JIMENEZ ([id number])[facility] ([facility])[address] [place] [address] ALP [Catalytic activity/Vol] 70 U/L Normal 40-150 [facility] Comment on above: Performed By: #### L [id number] ####Heating And Air Conditioning Mechanic: JAZLYN JIMENEZ ([id number])[facility])[address] [place] [address] ALT [Catalytic activity/Vol] U/L Normal <40 [facility] Comment on above: Performed By: #### L [id number] ####Heating And Air Conditioning Mechanic: JAZLYN JIMENEZ ([id number])[facility] ([facility])[address] [place] [address] Anion gap [Moles/Vol] 6 mmol/L Normal 3-13 [facility] Comment on above: Performed By: #### L [id number] ####Heating And Air Conditioning Mechanic: JAZLYN JIMENEZ ([id number])[facility] ([facility])[address] [place] [address] AST [Catalytic activity/Vol] 11 U/L Normal <34 [facility] Comment on above: Performed By: #### L [id number] ####Heating And Air Conditioning Mechanic: JAZLYN JIMENEZ ([id number])[facility] ([facility])[address] [place] [address] Bilirubin [Mass/Vol] 0.4 mg/dL Normal <1.2 [facility] Comment on above: Performed By: #### L [id number] ####Heating And Air Conditioning Mechanic: JAZLYN JIMENEZ ([id number])[facility] ([facility])[address] [place] [address] Calcium [Mass/Vol] 12.1 mg/dL High 8.4-10.2 [facility] Comment on above: Performed By: #### L [id number] ####Heating And Air Conditioning Mechanic: JAZLYN JIMENEZ ([id number])[facility] ([facility])[address] [place] [address] [place] Chloride [Moles/Vol] 107 mmol/L Normal 98-107 [facility] Comment on above: Performed By: #### L [id number] ####Heating And Air Conditioning Mechanic: JAZLYN JIMENEZ ([id number])[facility])[address] [place] [address] [place] CO2 [Moles/Vol] 24 mmol/L Normal 22-29 [facility] Comment on above: Performed By: #### L [id number] ####Heating And Air Conditioning Mechanic: JAZLYN JIMENEZ ([id number])[facility] ([facility])[address] [place] [address] [place] Creatinine [Mass/Vol] 1.42 mg/dL High 0.72-1.25 [facility] Comment on above: Performed By: #### L AB17 ####Heating And Air Conditioning Mechanic: JAZLYN JIMENEZ ([phone])[facility])[address] [place] [address] GLOMERULAR FILTRATION RATE ML/MIN/1.73 SQ M.PREDICTED 59.8 mL/min/1.73m*2 Low >60.0 [facility] Comment on above: Result Comment: Calc ulation based on the Chronic Kidney Disease Epidemiology Collaboration (CKD-EPI) equation refit without adjustment for race Performed By: #### L [id number] ####Heating And Air Conditioning Mechanic: JAZLYN JIMENEZ ([phone])[address] Glucose [Mass/Vol] 101 mg/dL High 74-100 [facility] Comment on above: Performed By: #### L AB17 ####Heating And Air Conditioning Mechanic: JAZLYN JIMENEZ ([phone])[address] Potassium [Moles/Vol] 3.7 mmol/L Normal 3.5-5.1 [facility] Comment on above: Result Comment: [facility] potassium values may be up to 0.5 mmol/L lower than serum values. Performed By: #### L [id number] ####Heating And Air Conditioning Mechanic: JAZLYN JIMENEZ ([phone])[facility])[address] [place] [address] Protein [Mass/Vol] 6.3 g/dL Low 6.4-8.3 [facility] Comment on above: Performed By: #### L [id number] ####Heating And Air Conditioning Mechanic: JAZLYN JIMENEZ ([phone])[address] Sodium [Moles/Vol] 137 mmol/L Normal 136-145 [facility] Comment on above: Performed By: #### L [id number] ####Heating And Air Conditioning Mechanic: JAZLYN [id number])[address] [address] [place] Urea nitrogen [Mass/Vol] 19 mg/dL Normal 9-23 [facility] Comment on above: Performed By: #### L [id number] ####Heating And Air Conditioning Mechanic: JAZLYN JIMENEZ ([phone])[facility] ([facility])[address] [place] [address] Comprehensive metabolic 1998 panelon 11-09-2024 Albumin [Mass/Vol] 2.5 g/dL Low 3.5 - 5.0 g/dL [facility] ALP [Catalytic activity/Vol] 70 U/L 40 - 150 U/L [facility] ALT [Catalytic activity/Vol] U/L NINF - 40 U/L [facility] Anion gap [Moles/Vol] 6 mmol/L 3 - 13 mmol/L [facility] AST [Catalytic activity/Vol] 11 U/L NINF - 34 U/L [facility] Bilirubin [Mass/Vol] 0.4 mg/dL NINF - 1.2 mg/dL [facility] Calcium [Mass/Vol] 12.1 mg/dL High 8.4 - 10. 2 mg/dL [facility] Chloride [Moles/Vol] 107 mmol/L 98 - 10 7 mmol/L [facility] CO2 [Moles/Vol] 24 mmol/L 22 - 29 mmol/L [facility] Creatinine [Mass/Vol] 1.42 mg/dL High 0.72 - 1.25 mg/dL [facility] GFR/1.73 sq M.predicted (S/P/Bld) [Vol rate/Area] 59.8 mL/min Low - PINF [facility] Comment on above: Calculation based on the Chronic Kidney Disease Epidemiology Collaboration (CKD-EPI) equation refit without adjustment for race Glucose [Mass/Vol] 101 mg/dL High 74 - 100 mg/dL [facility] Interpretation and review of laboratory results Abnormal [facility] Potassium [Moles/Vol] 3.7 mmol/L 3.5 - 5.1 mmol/L [facility] Comment on above: Plasma potassium jeri ues may be up to 0.5 mmol/L lower than serum values. Protein [Mass/Vol] 6.3 g/dL Low 6.4 - 8.3 g/dL [facility] Sodium [Moles/Vol] 137 mmol/L 136 - 145 mmol/L [facility] Urea nitrogen [Mass/Vol] 19 mg/dL 9 - 23 mg/d L [facility] Consulton 11-09-2024 Consult Attestation signed by Cara [...] minutes (including chart/data review/analysis, care coordination, and [id number] encounter), and was spent discussing/counselin g the [...] & Acute Care Surgery Department of Surgery [facility] Department of General Surgery Surgical Service - [...] He had (more content not included)... Normal [facility] ED Nursing Noteon 11-09-2024 ED Nursing Note This RN spoke to Enrique at transfer center for patient update. He stated that they are currently waiting for a bed assignment for the patient at [facility]. Normal [facility] MANUAL DIFFERENTIALon 2024 ANISOCYTOSIS PRESENCE IN BLOOD BY LIGHT MICROSCOPY Slight Abnormal (none) [facility] Comment on above: Performed By: #### L [id number], [id number] ####Heating And Air Conditioning Mechanic: JAZLYN JIMENEZ ([phone])[address] BAND NEUTROPHILS TOTAL PER COUNTED LEUKOCYTES BY MANUAL COUNT 5 Normal [facility] Comment on above: Performed By: #### L [id number], [id number] ####Heating And Air Conditioning Mechanic: JAZLYN JIMENEZ ([phone])[address] BANDS 0.7 10*3/uL High <=0.0 [facility] Comment on above: Performed By: #### L [id number], [id number] ####Heating And Air Conditioning Mechanic: JAZLYN JIMENEZ ([phone])[facility])[address] [place] [address] [place] PENNY CELLS PRESENCE IN BLOOD BY LIGHT MICROSCOPY Slight Abnormal (none) [facility] Comment on above: Performed By: #### L [id number], [id number] ####Heating And Air Conditioning Mechanic: JAZLYN JIMENEZ ([phone])[facility] ([facility])[address] [place] [address] CELLS COUNTED TOTAL (#) IN BLOOD 100 Normal [facility] Comment on above: Performed By: #### L [id number], [id number] ####Heating And Air Conditioning Mechanic: JAZLYN JIMENEZ ([phone])[facility] ([facility])[address] [place] [address] DIFFERENTIAL METHOD Manual differential performed Normal [facility] Comment on above: Performed By: #### L [id number], [id number] ####Heating And Air Conditioning Mechanic: JAZLYN JIMENEZ ([phone])[facility] ([facility])[address] [place] [address] EOSINOPHILS (10*3/UL) IN BLOOD BY MANUAL COUNT 1.0 10*3/uL High 0.0-0.5 [facility] Comment on above: Performed By: #### L [id number], [id number] ####Heating And Air Conditioning Mechanic: JAZLYN JIMENEZ ([phone])[facility] ([facility])[address] [place] [address] EOSINOPHILS TOTAL PER COUNTED LEUKOCYTES BY MANUAL COUNT 8 High 0-1 [facility] Comment on above: Performed By: #### L [id number], [id number] ####Heating And Air Conditioning Mechanic: JAZLYN JIMENEZ ([phone])[facility] ([facility])[address] [place] [address] [place] EOSINOPHILS/100 LEUKOCYTES IN BLOOD BY MANUAL COUNT 8 % High 0-6 [facility] Comment on above: Performed By: #### L [id number], [id number] ####Heating And Air Conditioning Mechanic: JAZLYN JIMENEZ ([phone])[facility])[address] [place] [address] LEUKOCYTE MORPHOLOGY FINDING IN BLOOD Normal Normal [facility] Comment on above: Performed By: #### L [id number], [id number] ####Heating And Air Conditioning Mechanic: JAZLYN JIMENEZ ([phone])[facility] ([facility])[address] [place], [place] [id number] [place] LEUKOCYTES (10*3/UL) NUCLEATED ERYTHROCYTE ADJUST 13.0 10*3/uL High 3.6-10.7 [facility] Comment on above: Performed By: #### L [id number], [id number] ####Heating And Air Conditioning Mechanic: JAZLYN JIMENEZ ([phone])[facility] ([facility])[address] [place] [address] LYMPHOCYTES (10*3/UL) IN BLOOD BY MANUAL COUNT 1.4 10*3/uL Normal 1.0-4.3 [facility] Comment on above: Performed By: #### L [id number], [id number] ####Heating And Air Conditioning Mechanic: JAZLYN JIMENEZ ([phone])[facility] ([facility])[address] [place] [address] LYMPHOCYTES TOTAL PER COUNTED LEUKOCYTES BY MANUAL COUNT 11 Normal [facility] Comment on above: Performed By: #### Kamila [id number], [id number] ####Heating And Air Conditioning Mechanic: JAZLYN JIMENEZ ([phone])[facility] ([facility])[address] [place] [address] [place] LYMPHOCYTES/100 LEUKOCYTES IN BLOOD BY MANUAL COUNT 11 % Low 15-45 [facility] Comment on above: Performed By: #### Kamila [id number], [id number] ####Heating And Air Conditioning Mechanic: JAZLYN JIMENEZ ([phone])[facility] ([facility])[address] [place] [address] MACROCYTES (PRESENCE) IN BLOOD BY LIGHT MICROSCOPY Slight Abnormal (none) [facility] Comment on above: Performed By: #### Kmaila [id number], [id number] ####Heating And Air Conditioning Mechanic: JAZLYN JIMENEZ ([phone])[facility] ([facility])[address] [place] [address] [place] MONOCYTES (10*3/UL) IN BLOOD BY MANUAL COUNT 1.0 10*3/uL High 0.0-0.9 [facility] Comment on above: Performed By: #### L [id number], [id number] ####Heating And Air Conditioning Mechanic: JAZLYN JIMENEZ ([phone])[facility] ([facility])[address] [place] [address] [place] MONOCYTES TOTAL PER COUNTED LEUKOCYTES BY MANUAL COUNT 8 Normal [facility] Comment on above: Performed By: #### L [id number], [id number] ####Heating And Air Conditioning Mechanic: JAZLYN JIMNEEZ ([phone])[facility] ([facility])[address] [place] [address] [place] MONOCYTES/100 LEUKOCYTES IN BLOOD BY MANUAL COUNT 8 % Normal 5-13 [facility] Comment on above: Performed By: #### L [id number], [id number] ####Heating And Air Conditioning Mechanic: JAZLYN JIMENEZ ([phone])[facility] [place] [address] [place] NEUTROPHILS (SEGS+BANDS) (10*3/UL) BY MANUAL COUNT 9.5 10*3/uL High 1.8-7.0 [facility] Comment on above: Performed By: #### L [id number], [id number] ####Heating And Air Conditioning Mechanic: JAZLYN JIMENEZ ([phone])[facility])[address] [place] [address] [place] NEUTROPHILS BAND FORM/100 LEUKOCYTES IN BLOOD BY MANUAL COUNT 5 % High <=0 [facility] Comment on above: Performed By: #### Kamila [id number], [id number] ####Heating And Air Conditioning Mechanic: JAZLYN JIMENEZ ([phone])[facility])[address] [place] [address] [place] NEUTROPHILS TOTAL PER COUNTED LEUKOCYTES BY MANUAL COUNT 68 Normal [facility] Comment on above: Performed By: #### Kamila [id number], [id number] ####Heating And Air Conditioning Mechanic: JAZLYN JIMENEZ ([phone])[facility] ([facility])[address] [place] [address] [place] OVALOCYTES PRESENCE IN BLOOD BY LIGHT MICROSCOPY Slight Abnormal (none) [facility] Comment on above: Performed By: #### L [id number], [id number] ####Heating And Air Conditioning Mechanic: JAZLYN JIMENEZ ([phone])[facility] ([facility])[address] [place] [address] [place] PLATELET MORPHOLOGY IN BLOOD Normal Normal [facility] Comment on above: Performed By: #### L [id number], [id number] ####Heating And Air Conditioning Mechanic: JAZLYN JIMENEZ ([phone])[facility])[address] [place] [address] POIKILOCYTOSIS (PRESENCE) IN BLOOD BY LIGHT MICROSCOPY Slight Abnormal (none) [facility] Comment on above: Performed By: #### L [id number], [id number] ####Heating And Air Conditioning Mechanic: JAZLYN JIMENEZ ([phone])[address] SEGEMENTED NEUTROPHILS/100 LEUKOCYTES BY MANUAL COUNT 68 % Normal 38-82 [facility] Comment on above: Performed By: #### L [id number], [id number] ####Heating And Air Conditioning Mechanic: JAZLYN JIMENEZ ([phone])[address] SEGMENTED NEUTROPHILS (10*3/UL)IN BLOOD BY MANUAL COUNT 9.5 10*3/uL High 1.8-7.5 [facility] Comment on above: Performed By: #### L [id number], [id number] ####Heating And Air Conditioning Mechanic: JAZLYN JIMENEZ ([phone])[address] [employer] CELLS IN BLOOD BY LIGHT MICROSCOPY Slight Abnormal (none) [facility] Comment on above: Performed By: #### L [id number], [id number] ####Heating And Air Conditioning Mechanic: JAZLYN JIMENEZ ([phone])[address] Manual differential performe d Ql (Bld)Ordered By: Flores Rausch on 11-09-2024 Anisocytosis Ql (Bld) Slight Abnormal (none) [facility] Band form neutrophils (Bld) [#/Vol] 0.7 10*3/uL High NINF - 0.0 10*3/uL [facility] Band form neutrophils/100 WBC (Bld) 5 % High NINF - 0 % [facility] Bands Manual 5 [facility] cells LM Ql (Bld) Slight Abnormal (none) [facility] Cells Counted Total (Bld) [#] 100 {cells} [facility] Differential Method Manual differential performed [facility] Eosinophils (Bld) [#/Vol] 1 10*3/uL High 0.0 - 0.5 10*3/uL [facility] Eosinophils Manual 8 High 0 - 1 [facility] Eosinophils/100 WBC (Bld) 8 % High 0 - 6 % [facility] Interpretation and review of laboratory results Abnormal [facility] Leukocyte morphology finding Nom (Bld) Normal [facility] Lymphocytes (Bld) [#/Vol] 1.4 10*3/uL 1.0 - 4.3 10*3/uL [facility] Lymphocytes Manual 11 [facility] Lymphocytes/100 WBC (Bld) 11 % Low 15 - 45 % [facility] Macrocytes Ql (Bld) Slight Abnormal (none) [facility] Monocytes (Bld) [#/Vol] 1 10*3/uL High 0.0 - 0.9 10*3/uL [facility] Monocytes Manual 8 [facility] Monocytes/100 WBC (Bld) 8 % 5 - 13 % [facility] Neutrophils (Bld) [#/Vol] 9.5 10*3/uL High 1.8 - 7.5 10*3/uL [facility] Neutrophils Manual 68 [facility] Ovalocytes LM Ql (Bld) Slight Abnormal (none) [facility] Platelet morphology finding Nom (Bld) Normal [facility] Poikilocytosis LM Ql (Bld) Slight Abnormal (none) [facility] Segmented neutrophils/100 WBC (Bld) 68 % 38 - 82 % [facility] Target cells LM Ql (Bld) Slight Abnormal (none) [facility] WBC corrected for nucl RBC (Bld) [#/Vol] 13 10*3/uL High 3.6 - 10.7 10*3/uL [facility] Nursing Noteon 11-09-2024 Nursing Note transfer center called, stated still no bed are available but checking on if any changes in pt condition. Updated vitals given and isolation status confirmed. Enrique at the transfer center given unit phone number and he stated they will reach out when bed available. Normal [facility] Progress Noteon 11-09-2024 Progress Note Patient is accepted for transfer to pending bed availability. Will continue to monitor on antibiotics. Will hold off on US or biopsy of enhancing lesion at this time, although in the setting of recent infection the etiology is most likely infectious. Surgical team has signed off. Normal [facility] BLOOD CULTUREon 11-08-2024 Bacteria identified Cx Nom (Bld) BLOOD CULTURE Reference No growth at 5 days ORDER COMMENTS: Hidradenitis Blood Collection Site: Left Arm [ S = SUSCEPTIBLE R = RESISTANT I = INTERMEDIATE S-DD = Susceptible-dose dependent NS = Non-susceptible NO = No Interpretation ] Normal [facility] Comment on above: Performed By: #### L [id number], [id number] #### Heating And Air Conditioning Mechanic: JAZLYN JIMENEZ ([phone]) [facility] ([facility]) [address] [place] [address] Bacteria identified Cx Nom (Bld) BLOOD CULTURE Reference No growth at 5 days ORDER COMMENTS: Blood Collection Site: Right Arm [ S = SUSCEPTIBLE R = RESISTANT I = INTERMEDIATE S-DD = Susceptible-dose dependent NS = Non-susceptible NO = No Interpretation ] Normal [facility] Comment on above: Performed By: #### L [id number], [id number] #### Heating And Air Conditioning Mechanic: JAZLYN JIMENEZ ([id number]) [facility] ([facility]) [address] [place] [address] CBC W Auto Differential pane l (Bld)Ordered By: Vielka Cortez on 11-08-2024 Basophils (Bld) [#/Vol] 0.1 10*3/uL 0.0 - 0.2 10*3/uL [facility] Basophils/100 WBC (Bld) 0.5 % 0.0 - 2.0 % [facility] Eosinophils (Bld) [#/Vol] 0.2 10*3/uL 0.0 - 0.5 10*3/uL [facility] Eosinophils/100 WBC (Bld) 1.4 % 0.0 - 6.0 % [facility] Erythrocyte distribution width (RBC) [Ratio] 16.5 % High 11.5 - 15.0 % [facility] Hematocrit (Bld) [Volume fraction] 31.1 % Low 40.0 - 52.0 % [facility] Hemoglobin (Bld) [Mass/Vol] 10.4 g/dL Low 13.0 - 18.0 g/dL [facility] Immature granulocytes (Bld) [#/Vol] 0.1 10*3/uL High NINF - 0.1 10*3/uL [facility] Immature granulocytes/100 WBC (Bld) 0.5 % 0.0 - 2.0 % [facility] Interpretation and review of laboratory results Abnormal [facility] Lymphocytes (Bld) [#/Vol] 1.6 10*3/uL 1.0 - 4.3 10*3/uL [facility] Lymphocytes/100 WBC (Bld) 11.7 % Low 15.0 - 45.0 % [facility] MCH (RBC) [Entitic mass] 28.3 pg 26. 0 - 34.0 pg [facility] MCHC (RBC) [Mass/Vol] 33.4 % 30.5 - 36.0 % [facility] MCV (RBC) [Entitic vol] 84.5 fL 77.0 - 99.0 fL [facility] Monocytes (Bld) [#/Vol] 1.5 10*3/uL High 0.0 - 0.9 10*3/uL [facility] Monocytes/100 WBC (Bld) 10.9 % 5.0 - 13.0 % [facility] Neutrophils (Bld) [#/Vol] 10.4 10*3/uL High 1.8 - 7.5 10*3/uL [facility] Neutrophils/100 WBC (Bld) 75 % 38.0 - 82.0 % [facility] Nucleated RBC/100 WBC (Bld) [Ratio] 0 % [facility] Platelet mean volume (Bld) [Entitic vol] 9.5 fL 9.0 - 12.7 fL [facility] Platelets (Bld) [#/Vol] 634 10*3/uL High 140 - 440 10*3/uL [facility] RBC (Bld) [#/Vol] 3.68 10*6/uL Low 4.40 - 5.9 0 10*6/uL [facility] WBC (Bld) [#/Vol] 13.9 10*3/uL High 3.6 - 10.7 10*3/uL [facility] CBC WITH AUTO DIFFERENTIALon 11-08-2024 Basophils (Bld) [#/Vol] 0.1 10*3/uL Normal 0.0-0.2 [facility] Comment on above: Performed By: #### L [id number] ####Heating And Air Conditioning Mechanic: JAZLYN JIMENEZ ([phone])[facility])[address] [place] [address] Basophils/100 WBC (Bld) 0.5 % Normal 0.0-2.0 [facility] Comment on above: Performed By: #### L [id number] ####Heating And Air Conditioning Mechanic: JAZLYN JIMENEZ ([phone])[facility])[address] [place] [address] Eosinophils (Bld) [#/Vol] 0.2 10*3/uL Normal 0.0-0.5 [facility] Comment on above: Performed By: #### L [id number] ####Heating And Air Conditioning Mechanic: JAZLYN JIMENEZ ([phone])[facility])[address] [place] [address] Eosinophils/100 WBC (Bld) 1.4 % Normal 0.0-6.0 [facility] Comment on above: Performed By: #### L [id number] ####Heating And Air Conditioning Mechanic: JAZLYN JIMENEZ ([phone])[facility])[address] [place] [address] Erythrocyte distribution width (RBC) [Ratio] 16.5 % High 11.5-15.0 [facility] Comment on above: Performed By: #### L [id number] ####Heating And Air Conditioning Mechanic: JAZLYN JIMENEZ ([phone])[facility])[address] [place] [address] Hematocrit (Bld) [Volume fraction] 31.1 % Low 40.0-52.0 [facility] Comment on above: Performed By: #### L [id number] ####Heating And Air Conditioning Mechanic: JAZLYN JIMENEZ ([phone])[facility])[address] [place] [address] Hemoglobin (Bld) [Mass/Vol] 10.4 g/dL Low 13.0-18.0 [facility] Comment on above: Performed By: #### L [id number] ####Heating And Air Conditioning Mechanic: JAZLYN JIMENEZ ([phone])[facility])[address] [place] [address] IMMATURE GRANS % 0.5 % Normal 0.0-2.0 [facility] Comment on above: Performed By: #### L [id number] ####Heating And Air Conditioning Mechanic: JAZLYN JIMENEZ ([phone])[facility])[address] [place] [address] IMMATURE GRANS ABSOLUTE 0.1 10*3/uL High <0.1 [facility] Comment on above: Performed By: #### L [id number] ####Heating And Air Conditioning Mechanic: JAZLYN JIMENEZ ([phone])[facility])[address] [place] [address] Lymphocytes (Bld) [#/Vol] 1.6 10*3/uL Normal 1.0-4.3 [facility] Comment on above: Performed By: #### L [id number] ####Heating And Air Conditioning Mechanic: JAZLYN JIMENEZ ([phone])[facility])[address] [place] [address] Lymphocytes/100 WBC (Bld) 11.7 % Low 15.0-45.0 [facility] Comment on above: Performed By: #### L [id number] ####Heating And Air Conditioning Mechanic: JAZLYN JIMENEZ ([phone])[facility])[address] [place] [address] MCH (RBC) [Entitic mass] 28.3 pg Normal 26.0-34.0 [facility] Comment on above: Performed By: #### L [id number] ####Heating And Air Conditioning Mechanic: JAZLYN JIMENEZ ([phone])[facility])[address] [place] [address] MCHC 33.4 % Normal 30.5-36.0 [facility] Comment on above: Performed By: #### L [id number] ####Heating And Air Conditioning Mechanic: JAZLYN JIMENEZ ([phone])[facility])[address] [place] [address] MCV (RBC) [Entitic vol] 84.5 fL Normal 77.0-99.0 [facility] Comment on above: Performed By: #### L [id number] ####Heating And Air Conditioning Mechanic: JAZLYN JIMENEZ ([phone])[facility])[address] [place] [address] Monocytes (Bld) [#/Vol] 1.5 10*3/uL High 0.0-0.9 [facility] Comment on above: Performed By: #### L [id number] ####Heating And Air Conditioning Mechanic: JAZLYN JIMENEZ ([phone])[facility] ([facility])[address] [place] [address] Monocytes/100 WBC (Bld) 10.9 % Normal 5.0-13.0 [facility] Comment on above: Performed By: #### L [id number] ####Heating And Air Conditioning Mechanic: JAZLYN JIMENEZ ([phone])[facility])[address] [place] [address] NEUTROPHILS ABSOLUTE 10.4 10*3/uL High 1.8-7.5 [facility] Comment on above: Performed By: #### L [id number] ####Heating And Air Conditioning Mechanic: JAZLYN JIMENEZ ([phone])[facility] ([facility])[address] [place] [address] Neutrophils/100 WBC (Bld) 75.0 % Normal 38.0-82.0 [facility] Comment on above: Performed By: #### L [id number] ####Heating And Air Conditioning Mechanic: JAZLYN JIMENEZ ([phone])[facility])[address] [place] [address] NRBC 0.0 /100 WBCs Normal 0.0-2.0 [facility] Comment on above: Performed By: #### L [id number] ####Heating And Air Conditioning Mechanic: JAZLYN JIMENEZ ([phone])[facility])[address] [place] [address] Platelet mean volume (Bld) [Entitic vol] 9.5 fL Normal 9.0-12.7 [facility] Comment on above: Performed By: #### L [id number] ####Heating And Air Conditioning Mechanic: JAZLYN JIMENEZ ([phone])[facility] [place] [address] Platelets (Bld) [#/Vol] 634 10*3/uL High 140-440 [facility] Comment on above: Performed By: #### L [id number] ####Heating And Air Conditioning Mechanic: JAZLYN JIMENEZ ([id number])[facility] ([facility])[address] [place] [address] RBC (Bld) [#/Vol] 3.68 10*6/uL Low 4.40-5.90 [facility] Comment on above: Performed By: #### L [id number] ####Heating And Air Conditioning Mechanic: JAZLNY JIMENEZ ([phone])[facility] ([facility])[address] [place] [address] WBC (Bld) [#/Vol] 13.9 10*3/uL High 3.6-10.7 [facility] Comment on above: Performed By: #### L [id number] ####Heating And Air Conditioning Mechanic: JAZLYN JIMENEZ ([phone])[facility] ([facility])[address] [place] [address] COMPLETE URINALYSISon 2024 BILIRUBIN, TOTAL PRESENCE IN URINE Negative Normal Negative [facility] Comment on above: Performed By: #### L [id number] ####Heating And Air Conditioning Mechanic: JAZLYN JIMENEZ ([phone])[facility] ([facility])[address] [place] [address] Clarity (U) Clear Normal Clear [facility] Comment on above: Performed By: #### L [id number] ####Heating And Air Conditioning Mechanic: JAZLYN JIMENEZ ([phone])[facility] ([facility])[address] [place] [address] Color (U) Light Yellow Normal Lt. Yellow [facility] Comment on above: Performed By: #### L [id number] ####Heating And Air Conditioning Mechanic: JAZLYN JIMENEZ ([phone])[facility] ([facility])[address] [place] [address] [place] GLUCOSE (MG/DL) IN URINE Normal Normal Normal (<70 ) [facility] Comment on above: Performed By: #### L [id number] ####Heating And Air Conditioning Mechanic: JAZLYN JIMENEZ ([phone])[facility] ([facility])[address] [place] [address] HEMOGLOBIN PRESENCE IN URINE Negative Normal Negative [facility] Comment on above: Performed By: #### L [id number] ####Heating And Air Conditioning Mechanic: JAZLYN JIMENEZ ([phone])[facility] ([facility])[address] [place] [address] Ketones Ql (U) Negative Normal Negative [facility] Comment on above: Performed By: #### L [id number] ####Heating And Air Conditioning Mechanic: JAZLYN JIMENEZ ([phone])[facility] ([facility])[address] [place] [address] LEUKOCYTE ESTERASE PRESENCE IN URINE BY TEST STRIP Negative Normal Negative [facility] Comment on above: Performed By: #### L [id number] ####Heating And Air Conditioning Mechanic: JAZLYN JIMENEZ ([phone])[facility] ([facility])[address] [place] [address] NITRITE PRESENCE IN URINE Negative Normal Negative [facility] Comment on above: Performed By: #### L [id number] ####Heating And Air Conditioning Mechanic: JAZLYN JIMENEZ ([phone])[facility] ([facility])[address] [place] [address] pH (U) 5.5 [pH] Normal 5.0-8.0 [facility] Comment on above: Performed By: #### L [id number] ####Heating And Air Conditioning Mechanic: JAZLYN JIMENEZ ([phone])[facility] ([facility])[address] [place] [address] [place] Protein (U) [Mass/Vol] Negative Normal Negative [facility] Comment on above: Performed By: #### L [id number] ####Heating And Air Conditioning Mechanic: JAZLYN JIMENEZ ([phone])[facility] ([facility])[address] [place] [address] [place] Specific gravity (U) [Rel density] 1.017 Normal 1.005-1.030 [facility] Comment on above: Performed By: #### L [id number] ####Heating And Air Conditioning Mechanic: JAZLYN JIMENEZ ([phone])[facility])[address] [place] [address] UROBILINOGEN (MG/DL) IN URINE Normal Normal Normal (0-1) [facility] Comment on above: Performed By: #### L [id number] ####Heating And Air Conditioning Mechanic: JAZLYN JIMENEZ ([phone])[facility])[address] [place] [address] COMPREHENSIVE METABOLIC PANE Yuriy 11-08-2024 Albumin [Mass/Vol] 3.0 g/dL Low 3.5-5.0 [facility] Comment on above: Performed By: #### L AB17, [id number] ####Heating And Air Conditioning Mechanic: JAZLYN JIMENEZ ([phone])[facility])[address] [place] [address] ALP [Catalytic activity/Vol] 84 U/L Normal 40-150 [facility] Comment on above: Performed By: #### L AB17, [id number] ####Heating And Air Conditioning Mechanic: JAZLYN JIMENEZ ([phone])[facility])[address] [place] [address] ALT [Catalytic activity/Vol] 7 U/L Normal <40 [facility] Comment on above: Performed By: #### L AB17, [id number] ####Heating And Air Conditioning Mechanic: JAZLYN JIMENEZ ([phone])[facility])[address] [place] [address] Anion gap [Moles/Vol] 10 mmol/L Normal 3-13 [facility] Comment on above: Performed By: #### L AB17, [id number] ####Heating And Air Conditioning Mechanic: JAZLYN JIMENEZ ([phone])[facility])[address] [place] [address] AST [Catalytic activity/Vol] 14 U/L Normal <34 [facility] Comment on above: Performed By: #### L AB17, [id number] ####Heating And Air Conditioning Mechanic: JAZLYN JIMENEZ ([id number])[facility] [place] [address] [place] Bilirubin [Mass/Vol] 0.5 mg/dL Normal <1.2 [facility] Comment on above: Performed By: #### L AB17, [id number] ####Heating And Air Conditioning Mechanic: JAZLYN JIMENEZ ([phone])[facility])[address] [place] [address] Calcium [Mass/Vol] 13.5 mg/dL High 8.4-10.2 [facility] Comment on above: Performed By: #### L AB17, [id number] ####Heating And Air Conditioning Mechanic: JAZLYN JIMENEZ ([phone])[facility] ([facility])[address] [place] [address] Chloride [Moles/Vol] 103 mmol/L Normal 98-107 [facility] Comment on above: Performed By: #### L AB17, [id number] ####Heating And Air Conditioning Mechanic: JAZLYN JIMENEZ ([id number])[facility] ([facility])[address] [place] [address] [place] CO2 [Moles/Vol] 24 mmol/L Normal 22-29 [facility] Comment on above: Performed By: #### L AB17, [id number] ####Heating And Air Conditioning Mechanic: JAZLYN JIMENEZ ([phone])[facility] ([facility])[address] [place] [address] [place] Creatinine [Mass/Vol] 1.39 mg/dL High 0.72-1.25 [facility] Comment on above: Performed By: #### L AB17, [id number] ####Heating And Air Conditioning Mechanic: JAZLYN JIMENEZ ([phone])[facility] ([facility])[address] [place] [address] [place] GLOMERULAR FILTRATION RATE ML/MIN/1.73 SQ M.PREDICTED 61.4 mL/min/1.73m*2 Normal >60.0 [facility] Comment on above: Result Comment: Calc ulation based on the Chronic Kidney Disease Epidemiology Collaboration (CKD-EPI) equation refit without adjustment for race Performed By: #### L AB17, [id number] ####Heating And Air Conditioning Mechanic: JAZLYN JIMENEZ ([phone])[facility] ([facility])[address] [place] [address] Glucose [Mass/Vol] 104 mg/dL High 74-100 [facility] Comment on above: Performed By: #### L AB17, [id number] ####Heating And Air Conditioning Mechanic: JAZLYN JIMENEZ ([phone])[facility] ([facility])[address] [place] [address] Potassium [Moles/Vol] 4.2 mmol/L Normal 3.5-5.1 [facility] Comment on above: Result Comment: [facility] potassium values may be up to 0.5 mmol/L lower than serum values. Performed By: #### L AB17, [id number] ####Heating And Air Conditioning Mechanic: JAZLYN JIMENEZ ([phone])[facility] ([facility])[address] [place] [address] Protein [Mass/Vol] 7.7 g/dL Normal 6.4-8.3 [facility] Comment on above: Performed By: #### L AB17, [id number] ####Heating And Air Conditioning Mechanic: JAZLYN JIMENEZ ([phone])[facility] ([facility])[address] [place] [address] Sodium [Moles/Vol] 137 mmol/L Normal 136-145 [facility] Comment on above: Performed By: #### L AB17, [id number] ####Heating And Air Conditioning Mechanic: JAZLYN JIMENEZ ([id number])[facility] ([facility])[address] [place] [address] Urea nitrogen [Mass/Vol] 21 mg/dL Normal 9-23 [facility] Comment on above: Performed By: #### L AB17, [id number] ####Heating And Air Conditioning Mechanic: JAZLYN JIMENEZ ([phone])[facility])[address] [place] [address] CT PELVIS W IV CONTR[address] PELVIS W IV CONTRAST Patient Name: KEVAN LA : 1975 Exam [...] on back from abscesses. Pt arrives from SNF for possible sepsis. Had wound on buttock drained at in Sep. Has not had IV antibiotics at facility. Hx of rare skin condition with frequent abscesses. Aox4. Some N/V. Hypotensive 80-90 systolic. Normal [facility] CT Pelvis W contrast Mp 1. 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 [facility] Julio Sears MD - 11/08/2024 Patient Name: KEVAN LA : 1975 [id number] Exam Date/Time: 11/08/2024 16:38 Procedure: CT PELVIS [...] Electronically Signed Date/Time: 11/08/2024 5:20 PM EST [facility] Radiology Study observation (narrative) [facility] CT Pelvis W contrast IVOrder ed By: Julio Sears on 11-08-2024 [facility] Ver[facility] Work Phone: Comprehensive metabolic 1998 panelon 11-08-2024 Albumin [Mass/Vol] 3 g/dL Low 3.5 - 5.0 g/dL [facility] ALP [Catalytic activity/Vol] 84 U/L 40 - 150 U/L [facility] ALT [Catalytic activity/Vol] 7 U/L NINF - 40 U/L [facility] Anion gap [Moles/Vol] 10 mmol/L 3 - 13 mmol/L [facility] AST [Catalytic activity/Vol] 14 U/L NINF - 34 U/L [facility] Bilirubin [Mass/Vol] 0.5 mg/dL NINF - 1.2 mg/dL [facility] Calcium [Mass/Vol] 13.5 mg/dL High 8.4 - 10. 2 mg/dL [facility] Chloride [Moles/Vol] 103 mmol/L 98 - 10 7 mmol/L [facility] CO2 [Moles/Vol] 24 mmol/L 22 - 29 mmol/L [facility] Creatinine [Mass/Vol] 1.39 mg/dL High 0.72 - 1.25 mg/dL [facility] GFR/1.73 sq M.predicted (S/P/Bld) [Vol rate/Area] 61.4 mL/min - PINF [facility] Comment on above: Calculation based on the Chronic Kidney Disease Epidemiology Collaboration (CKD-EPI) equation refit without adjustment for race Glucose [Mass/Vol] 104 mg/dL High 74 - 100 mg/dL [facility] Interpretation and review of laboratory results Abnormal [facility] Potassium [Moles/Vol] 4.2 mmol/L 3.5 - 5.1 mmol/L [facility] Comment on above: Plasma potassium jeri ues may be up to 0.5 mmol/L lower than serum values. Protein [Mass/Vol] 7.7 g/dL 6.4 - 8.3 g/dL [facility] Sodium [Moles/Vol] 137 mmol/L 136 - 145 mmol/L [facility] Urea nitrogen [Mass/Vol] 21 mg/dL 9 - 23 mg/d L [facility] Consulton 11-08-2024 Consult Pharmacy [...] creatinine, and vancomycin levels interfaced automatically to [place] and data has been analyzed and interpreted. [...] PharmD Clinical Pharmacist Available via Secure Chat [facility] ED Nursing Noteon 11-08-2024 ED Nursing Note Provider messaged about BP and MAP [facility] ED Nursing Note Provider messaged about orders [facility] ED Nursing Note Patient requested pain medication and dinner. This nurse messaged provider [facility] ED Nursing Note Patient is aware of patients BP and MAP. Normal [facility] ED Nursing Note Liter of NS hung for systolic of 88. IV obtained with blood work and first set of cultures. Will notify doctor of BP. [facility] ED Provider Noteon ED Provider Note Emergency Department Encounter Location: [facility]5 Patient: Kevan [...] 1.8 - (more content not included)... Normal [facility] ED Provider Note EMERGENCY DEPARTMENT ENCOUNTER Pt [...] Resource Strain: Medium Risk (10/12/2024) Received from [facility] Overall Financial Resource Strain (CARDIA) Difficulty of Paying Living Expenses: Somewhat hard Food Insecurity: Food Insecurity Present (10/11/2024) Received from [facility] Hunger Vital Sign Worried About Running Out of Food in the Last Year: Sometimes true Ran Out of Food in the Last Year: Sometimes true Transportation Needs: No Transportation Needs (10/12/2024) Received from [facility] PRAPARE - Transportation Lack of Transportation (Medical): No Lack of Transportation (Non-Medical): No Intimate Partner Violence: Not At Risk (10/11/2024) Received from [facility] Humiliation, Afraid, Rape, and Kick questionnaire Fear of Current or Ex-Partner: No Emotionally Abused: No Physically Abused: No Sexually Abused: No Housing Stability: Low Risk (10/12/2024) Received from [facility] Housing Stability Vital Sign Unable to Pay for Housing in the Last Year: No Number of Times Moved in the Last Year: 1 Homeless in the Last Year: No Recent Concern: Housing Stability - High Risk (09/17/2024) Received from [facility] Housing Stability Vital Sign Unable to Pay [...] Emergency Physic (more content not included)... Normal [facility] ED Provider Note Emergency Department Encounter [facility] EM[facility]ENCY [facility]PT Patient: Kevan La : 1975 [...] pressure and wound check. Patient coming from [facility] for possible sepsis. Patient has chronic refractory [...] dictating provider for clarification.) Fer Kennedy MD [facility] Fer Kennedy MD 11/08/24 1651 Normal [facility] HEMOGLOBIN A1Con 11-08-2024 Glucose [Mass/Vol] 103 mg/dL Normal [facility] Comment on above: Result Comment: MAYRA Dhillon COMMENTS: HbA1c values of 5.7-6.4 percent indicate an increased risk for developing diabetes mellitus. HbA1c values greater than or equal to 6.5 percent are diagnostic of diabetes mellitus. For diagnosis of diabetes in individuals without unequivocal hyperglycemia, results should be confirmed by repeat testing. Performed By: #### L AB90 ####Heating And Air Conditioning Mechanic: JAZLYN JIMENEZ ([phone])[facility])[address] [place] [address] HEMOGLOBIN A1C 5.2 %HbA1C Normal <5.7 [facility] Comment on above: Result Comment: Norm al less than 5.7% Prediabetes 5.7% to 6.4% Diabetes 6.5% or higher --HgbA1C levels may not be accurate in patients who have renal disease, received recent blood transfusions, are anemic, or who have dyshemoglobinemia. Performed By: #### L AB90 ####Heating And Air Conditioning Mechanic: JAZLYN JIMENEZ ([phone])[facility])[address] [place] [address] LACTIC ACID WITH REFLEXon Lactate [Moles/Vol] 1.2 mmol/L Normal 0.5-2.2 [facility] Comment on above: Performed By: #### L [id number] ####Heating And Air Conditioning Mechanic: JAZLYN JIMENEZ ([phone])[facility])[address] [place] [address] Laboratory - Chemistry and C hemistry - challengeon 11-08-2024 Average glucose Estimated from glycated hemoglobin (Bld) [Mass/Vol] 103 mg/dL [facility] TSH Qn 0.84 m[IU]/L [facility] Lactate [Moles/Vol] 1.2 mmol/L 0.5 - 2. 2 mmol/L [facility] Laboratory - Hematology and Cell countson 11-08-2024 HbA1c (Bld) [Mass fraction] 5.2 % NINF [facility] Comment on above: Normal less than 5.7 [...] results should be confirmed by repeat testing. [facility] Interpretation and review of laboratory results Normal [facility] THYROID STIMULATING HORMONEo n 11-08-2024 THYROID STIMULATING HORMONE 0.84 uIU/mL Normal 0.35-4.94 [facility] Comment on above: Performed By: #### L AB17, [id number] ####Heating And Air Conditioning Mechanic: JAZLYN JIMENEZ ([phone])[facility])[address] [place] [address] TSH Qnon 11-08-2024 Interpretation and review of laboratory results Normal [facility] Urinalysis complete panel (U )on 11-08-2024 Bilirubin Ql (U) Negative Negative mg/dL [facility] Clarity (U) Clear Clear [facility] Color (U) Light Yellow Lt. Yellow [facility] Glucose Ql (U) Normal Normal (<70) mg/dL [facility] Hemoglobin Ql (U) Negative Negative mg/dL [facility] Interpretation and review of laboratory results Normal [facility] Ketones (U) [Mass/Vol] Negative Negat sulema mg/dL [facility] Leukocyte esterase Test strip Ql (U) Negative Negative Gabe/uL [facility] Nitrite Ql (U) Negative Negative [facility] th pH (U) 5.5 [pH] 5.0 - 8.0 pH [facility] Protein (U) [Mass/Vol] Negative Negat sulema mg/dL [facility] Specific gravity (U) [Rel density] 1.017 1.005 - 1.030 [facility] Urobilinogen (U) [Mass/Vol] Normal Normal (0-1) mg/dL [facility] 26-MU-Hrhdyba DOrdered By: Vanda Nolasco on 10-24-2024 Vitamin D 25-Hydroxy 63.4 ng/mL [facility] Comment on above: Vitamin D 25(OH) Sta tus Range Deficiency <20 ng/mL (50nmol/L) Insufficiency 20 - 30 ng/mL (50 - 75 nmol/L) Sufficiency 30 - 100 ng/mL (75 - 250 nmol/L) Toxicity >100 ng/mL (>250 nmol/L) Blood urea nitrogen (BUN)/cr eatinine ratioOrdered By: Julio Nolasco on 10-24-2024 Urea nitrogen/Creatinine [Mass ratio] 14.0 mg/mg 10-20 [facility] Carbon dioxide measurementOr dered By: Julio Nolasco on 10-24-2024 CO2 [Moles/Vol] 26.0 mmol/L 21.0-32.0 [facility] Chloride measurementOrdered By: Julio Nolasco on 10-24-2024 Chloride [Moles/Vol] 104 mmol/L 98-107 [facility] Erythrocyte distribution wid th (RBC) [Ratio]Ordered By: Julio Nolasco on 10-24-2024 Erythrocyte distribution width (RBC) [Entitic vol] 60.6 fL High 35.1-43.9 [facility] Erythrocyte distribution wid th ratioOrdered By: Julio Nolasco on 10-24-2024 Erythrocyte distribution width (RBC) [Ratio] 18.5 % High 11.6-14.6 [facility] Estimated glomerular filtrat ion rate (GFR) AmericanOrdered By: Julio Nolasco on 10-24-2024 Estimated GFR (MDRD) Amer 75 mL/min >60 [facility] Comment on above: GFR Calc Glomerular filtration rate ( GFR) estimationOrdered By: Julio Nolasco on 10-24-2024 Estimated GFR (MDRD) Non-Af Amer 62 mL/min >60 [facility] Comment on above: Non- GFR Calc Glucose measurementOrdered B y: Julio Nolasco on 10-24-2024 Glucose [Mass/Vol] 95 mg/dL 74-106 [facility] Hematocrit Auto (Bld) [Volum e fraction]Ordered By: Julio Nolasco on 10-24-2024 Hematocrit (Bld) [Volume fraction] 26.4 % Low 40-54 [facility] Hemoglobin A1c percentageOrd ered By: Julio Nolasco on 10-24-2024 HbA1c (Bld) [Mass fraction] 5.2 % 3.8-5.6 [facility] Comment on above: Normal < 5.7 % Predi abetic 5.7 - 6.4 % Diabetic >or= 6.5 % Please note range changes. Hemoglobin measurementOrdere d By: Julio Nolasco on 10-24-2024 Hemoglobin (Bld) [Mass/Vol] 8.4 g/dL Low 13.0-16.5 [facility] High density lipoprotein (HD L) measurementOrdered By: Julio Nolasco on 10-24-2024 Cholesterol in HDL [Mass/Vol] 38 mg/dL Low >40 [facility] Comment on above: The drugs N-Acetylcy steine and Metamizole may falsely depress this assay. Reference Range HDL <40 mg/dL Low HDL Cholesterol HDL >or= 60 mg/dL High HDL Cholesterol Low density lipoprotein (LDL ) cholesterol measurementOrdered By: Julio Nolasco on 10-24-2024 Cholesterol in LDL [Mass/Vol] 96 mg/dL 0-130 [facility] MCV (mean corpuscular volume ) determinationOrdered By: Julio Nolasco on 10-24-2024 MCV (RBC) [Entitic vol] 89.5 fL 80-94 [facility] Mean corpuscular hemoglobin (MCH) determinationOrdered By: Julio Nolasco on 10-24-2024 MCH (RBC) [Entitic mass] 28.5 pg 27.0-32.0 [facility] Mean corpuscular hemoglobin concentration (MCHC) determinationOrdered By: Julio Nolasco on 10-24-2024 MCHC (RBC) [Mass/Vol] 31.8 g/dL Low 32-36 [facility] Mean platelet volume determi nationOrdered By: Julio Nolasco on 10-24-2024 Platelet mean volume (Bld) [Entitic vol] 8.7 fL 6.2-12.0 [facility] Platelet countOrdered By: Antwon Nolasco on 10-24-2024 Platelets (Bld) [#/Vol] 536 10*3/uL High 150-450 [facility] Potassium measurementOrdered By: Julio Nolasco on 10-24-2024 Potassium [Moles/Vol] 4.0 mmol/L 3.5-5.1 [facility] RBC Auto (Bld) [#/Vol]Ordere d By: Julio Nolasco on 10-24-2024 RBC (Bld) [#/Vol] 2.95 10*6/uL Low 4.6-6.2 [facility] Serum anion gap measurementO rdered By: Julio Nolasco on 10-24-2024 Anion gap [Moles/Vol] 7 mmol/L 5-15 [facility] Serum or plasma calcium mervat urement (mass/volume)Ordered By: Julio Nolasco on 10-24-2024 Calcium [Mass/Vol] 10.3 mg/dL High 8.5-10.1 [facility] Serum or plasma cholesterol measurement (mass/volume)Ordered By: Julio Nolasco on 10-24-2024 Cholesterol [Mass/Vol] 164 mg/dL <200 [facility] Comment on above: <200 mg/dL Desirable 200-240 mg/dL Borderline >240 mg/dL High Risk Serum or plasma creatinine m easurement (mass/volume)Ordered By: Julio Nolasco on 10-24-2024 Creatinine [Mass/Vol] 1.29 mg/dL 0.70-1.30 [facility] Comment on above: The validity of the calculated GFR & GFRAA in patients over 70 years has not been determined. Clinical correlation is essential. Serum or plasma urea nitroge n measurement (mass/volume)Ordered By: Julio Nolasco on 10-24-2024 Urea nitrogen [Mass/Vol] 18 mg/dL 7-18 [facility] Sodium levelOrdered By: William Nolasco on 10-24-2024 Sodium [Moles/Vol] 137 mmol/L 136-145 [facility] TSH QnOrdered By: Julio johnson on 10-24-2024 Thyroid Stimulating Hormone (TSH) 5.030 uIU/mL High 0.358-3.740 [facility] Triglycerides measurementOrd ered By: Julio Nolasco on 10-24-2024 Triglyceride [Mass/Vol] 150 mg/dL <199 [facility] Comment on above: The drugs N-Acetylcy steine and Metamizole may falsely depress this assay.Serum Triglycerides Reference Interval Normal <150 mg/dL Borderline high 150 - 199 mg/dL High 200 - 499 mg/dL Very High > or = 500 mg/dL Very low density lipoprotein (VLDL) cholesterol measurementOrdered By: Julio Nolasco on 10-24-2024 VLDL Cholesterol 30 mg/dL 5-40 [facility] White blood cell (WBC) count Ordered By: Julio Nolasco on 10-24-2024 WBC (Bld) [#/Vol] 12.2 10*3/uL High 4.4-11.0 [facility] Basic metabolic 2000 panelon 10-23-2024 Anion gap [Moles/Vol] 13 mmol/L 10 - 2 0 mmol/L [facility] Calcium [Mass/Vol] 10.2 mg/dL 8.6 - 10. 6 mg/dL [facility] Chloride [Moles/Vol] 101 mmol/L 98 - 10 7 mmol/L [facility] CO2 [Moles/Vol] 27 mmol/L 21 - 32 mmol/L [facility] Creatinine [Mass/Vol] 1.37 mg/dL High 0.50 - 1.30 mg/dL [facility] GFR/1.73 sq M.predicted among non-blacks MDRD (S/P/Bld) [Vol rate/Area] 62 mL/min/{1.73_m2} - PINF [facility] Glucose [Mass/Vol] 98 mg/dL 74 - 99 mg/dL [facility] Interpretation and review of laboratory results Abnormal [facility] Potassium [Moles/Vol] 4.3 mmol/L 3.5 - 5.3 mmol/L [facility] Sodium [Moles/Vol] 137 mmol/L 136 - 145 mmol/L [facility] Urea nitrogen [Mass/Vol] 20 mg/dL 6 - 23 mg/d L [facility] CBC W Auto Differential pane l (Bld)on 10-23-2024 Basophils (Bld) [#/Vol] 0.08 10*3/uL [facility] Basophils/100 WBC (Bld) 0.6 % 0.0 - 2.0 % [facility] [facility] Eosin[facility] (Bld) [#/Vol] 0.23 10*3/uL [facility] Eosinophils/100 WBC (Bld) 1.7 % 0.0 - 6.0 % [facility] Erythrocyte distribution width (RBC) [Ratio] 18.6 % High 11.5 - 14.5 % [facility] Hematocrit (Bld) [Volume fraction] 26.4 % Low 41.0 - 52.0 % [facility] Hemoglobin (Bld) [Mass/Vol] 8.3 g/dL Low 13.5 - 17.5 g/dL [facility] Immature granulocytes (Bld) [#/Vol] 0.06 10*3/uL [facility] Immature granulocytes/100 WBC (Bld) 0.5 % 0.0 - 0.9 % [facility] Interpretation and review of laboratory results Abnormal [facility] Lymphocytes (Bld) [#/Vol] 1.57 10*3/uL [facility] Lymphocytes/100 WBC (Bld) 11.8 % 13.0 - 44.0 % [facility] MCH (RBC) [Entitic mass] 27.9 pg 26. 0 - 34.0 pg [facility] MCHC (RBC) [Mass/Vol] 31.4 g/dL Low 32.0 - 36.0 g/dL [facility] MCV (RBC) [Entitic vol] 89 fL 80 - 100 fL [facility] Monocytes (Bld) [#/Vol] 1.38 10*3/uL High [facility] Monocytes/100 WBC (Bld) 10.4 % 2.0 - 10.0 % [facility] Neutrophils (Bld) [#/Vol] 9.93 10*3/uL High [facility] Neutrophils/100 WBC (Bld) 75 % 40.0 - 80.0 % [facility] Nucleated RBC/100 WBC (Bld) [Ratio] 0 % [facility] Platelets (Bld) [#/Vol] 525 10*3/uL High [facility] RBC (Bld) [#/Vol] 2.98 10*6/uL Low Un[facility] WBC (Bld) [#/Vol] 13.3 10*3/uL High [facility] Magnesiumon 10-23-2024 Magnesium [Mass/Vol] 2 mg/dL 1.60 - 2.40 mg/dL [facility] No Panel Informationon 10-23 Interpretation and review of laboratory results Normal [facility] Phosphoruson 10-23-2024 Phosphate [Mass/Vol] 3.7 mg/dL 2.5 - 4 .9 mg/dL [facility] Basic metabolic 2000 panelon 10-22-2024 Anion gap [Moles/Vol] 14 mmol/L 10 - 2 0 mmol/L [facility] Calcium [Mass/Vol] 10.3 mg/dL 8.6 - 10. 6 mg/dL [facility] Chloride [Moles/Vol] 100 mmol/L 98 - 10 7 mmol/L [facility] CO2 [Moles/Vol] 26 mmol/L 21 - 32 mmol/L [facility] Creatinine [Mass/Vol] 1.43 mg/dL High 0.50 - 1.30 mg/dL [facility] GFR/1.73 sq M.predicted among non-blacks MDRD (S/P/Bld) [Vol rate/Area] 59 mL/min/{1.73_m2} Low - PINF [facility] Glucose [Mass/Vol] 111 mg/dL High 74 - 99 mg/[facility] Interpretation and review of laboratory results Abnormal [facility] Potassium [Moles/Vol] 4.2 mmol/L 3.5 - 5.3 mmol/L [facility] Sodium [Moles/Vol] 136 mmol/L 136 - 145 mmol/L [facility] Urea nitrogen [Mass/Vol] 18 mg/dL 6 - 23 mg/d L [facility] CBC W Auto Differential pane l (Bld)on 10-22-2024 Basophils (Bld) [#/Vol] 0.06 10*3/uL [facility] Basophils/100 WBC (Bld) 0.4 % 0.0 - 2.0 % [facility] Eosinophils (Bld) [#/Vol] 0.33 10*3/uL [facility] Eosinophils/100 WBC (Bld) 2.4 % 0.0 - 6.0 % [facility] Erythrocyte distribution width (RBC) [Ratio] 18.5 % High 11.5 - 14.5 % [facility] Hematocrit (Bld) [Volume fraction] 26.8 % Low 41.0 - 52.0 % [facility] Hemoglobin (Bld) [Mass/Vol] 8.3 g/dL Low 13.5 - 17.5 g/dL [facility] Immature granulocytes (Bld) [#/Vol] 0.07 10*3/uL [facility] Immature granulocytes/100 WBC (Bld) 0.5 % 0.0 - 0.9 % [facility] Interpretation and review of laboratory results Abnormal [facility] Lymphocytes (Bld) [#/Vol] 1.75 10*3/uL [facility] Lymphocytes/100 WBC (Bld) 12.5 % 13.0 - 44.0 % [facility] MCH (RBC) [Entitic mass] 27.7 pg 26. 0 - 34.0 pg [facility] MCHC (RBC) [Mass/Vol] 31 g/dL Low 32.0 - 36.0 g/dL [facility] MCV (RBC) [Entitic vol] 89 fL 80 - 100 fL [facility] Monocytes (Bld) [#/Vol] 1.29 10*3/uL High [facility] Monocytes/100 WBC (Bld) 9.2 % 2.0 - 10.0 % [facility] Neutrophils (Bld) [#/Vol] 10.52 10*3/uL High [facility] Neutrophils/100 WBC (Bld) 75 % 40.0 - 80.0 % [facility] Nucleated RBC/100 WBC (Bld) [Ratio] 0 % [facility] Platelets (Bld) [#/Vol] 556 10*3/uL High [facility] RBC (Bld) [#/Vol] 3 10*6/uL [facility] WBC (Bld) [#/Vol] 14 10*3/uL [facility] Magnesiumon 10-22-2024 Magnesium [Mass/Vol] 1.94 mg/dL 1.60 - 2.40 mg/dL [facility] No Panel Informationon 10-22 Interpretation and review of laboratory results Normal [facility] Phosphoruson 10-22-2024 Phosphate [Mass/Vol] 3.1 mg/dL 2.5 - 4 .9 mg/dL [facility] Basic metabolic 2000 panelon 10-21-2024 Anion gap [Moles/Vol] 14 mmol/L 10 - 2 0 mmol/L [facility] Calcium [Mass/Vol] 10 mg/dL 8.6 - 10. 6 mg/dL [facility] Chloride [Moles/Vol] 103 mmol/L 98 - 10 7 mmol/L [facility] CO2 [Moles/Vol] 26 mmol/L 21 - 32 mmol/L [facility] Creatinine [Mass/Vol] 1.55 mg/dL High 0.50 - 1.30 mg/dL [facility] GFR/1.73 sq M.predicted among non-blacks MDRD (S/P/Bld) [Vol rate/Area] 54 mL/min/{1.73_m2} Low - PINF [facility] Glucose [Mass/Vol] 98 mg/dL 74 - 99 mg/[facility] Interpretation and review of laboratory results Abnormal [facility] Potassium [Moles/Vol] 4.4 mmol/L 3.5 - 5.3 mmol/L [facility] Sodium [Moles/Vol] 139 mmol/L 136 - 145 mmol/L [facility] Urea nitrogen [Mass/Vol] 20 mg/dL 6 - 23 mg/d L [facility] CBC W Auto Differential pane l (Bld)on 10-21-2024 Erythrocyte distribution width (RBC) [Ratio] 18.5 % High 11.5 - 14.5 % [facility] Hematocrit (Bld) [Volume fraction] 26 % Low 41.0 - 52.0 % [facility] Hemoglobin (Bld) [Mass/Vol] 8 g/dL Low 13.5 - 17.5 g/dL [facility] Immature granulocytes (Bld) [#/Vol] 0.07 10*3/uL [facility] Immature granulocytes/100 WBC (Bld) 0.6 % 0.0 - 0.9 % [facility] MCH (RBC) [Entitic mass] 27.9 pg 26. 0 - 34.0 pg [facility] MCHC (RBC) [Mass/Vol] 30.8 g/dL Low 32.0 - 36.0 g/dL [facility] MCV (RBC) [Entitic vol] 91 fL 80 - 100 fL [facility] Nucleated RBC/100 WBC (Bld) [Ratio] 0 % [facility] Platelets (Bld) [#/Vol] 549 10*3/uL High [facility] RBC (Bld) [#/Vol] 2.87 10*6/uL Low [facility] WBC (Bld) [#/Vol] 12.4 10*3/uL High [facility]ive [facility] MRSA isol Org specific cx Ql (Nose)Ordered By: Anabelle Guerrero on 10-21-2024 Interpretation and review of laboratory results Normal [facility] Staphylococcus sp identified Org specific cx Nom (Unsp spec) No Staphylococcus aureus isolated [facility] Magnesiumon 10-21-2024 Magnesium [Mass/Vol] 2.03 mg/dL 1.60 - 2.40 mg/dL [facility] Manual differential performe d Ql (Bld)on 10-21-2024 Basophils (Bld) [#/Vol] 0.21 10*3/uL High [facility] Basophils/100 WBC (Bld) 1.7 % 0.0 - 2.0 % [facility] Cells Counted Total (Bld) [#] 117 {cells} [facility] Eosinophils (Bld) [#/Vol] 0.21 10*3/uL [facility] Eosinophils/100 WBC (Bld) 1.7 % 0.0 - 6.0 % [facility] Hypochromia Ql (Bld) Mild Univ [facility] Lymphocytes (Bld) [#/Vol] 2.54 10*3/uL [facility] Lymphocytes/100 WBC (Bld) 20.5 % 13.0 - 44.0 % [facility] Monocytes (Bld) [#/Vol] 0.53 10*3/uL [facility] Monocytes/100 WBC (Bld) 4.3 % 2.0 - 10.0 % [facility] RBC morphology finding Nom (Bld) See Below [facility] Segmented neutrophils (Bld) [#/Vol] 8.79 10*3/uL [facility] Segmented neutrophils/100 WBC (Bld) 70.9 % 40.0 - 80.0 % [facility] Variant lymphocytes (Bld) [#/Vol] 0.11 10*3/uL [facility] Variant lymphocytes/100 WBC (Bld) 0.9 % 0.0 - 2.0 % [facility] No Panel Informationon 10-21 Interpretation and review of laboratory results Normal [facility] Interpretation and review of laboratory results Abnormal [facility] Phosphoruson 10-21-2024 Phosphate [Mass/Vol] 3.9 mg/dL 2.5 - 4 .9 mg/dL [facility] US.doppler Lower extremity v ein - bilateralon 10-21-2024 SYNGO [facility] Work Phone: Radiology Study observation (narrative) [facility] Work Phone: US.doppler Lower extremity v ein - bilateralOrdered By: Viki Colin on 10-21-2024 [facility] Work Phone: Vancomycinon 10-21-2024 Vancomycin [Mass/Vol] 4.4 ug/mL Low 5.0 - 20.0 ug/mL [facility] Vancomycin [Mass/Vol]on Interpretation and review of laboratory results Abnormal [facility] Bacteria identified Cx Nom ( Bld)Ordered By: Jennifer Saravia on 10-20-2024 Bacteria identified Aer cx Nom (Bld) Positive [facility] Interpretation and review of laboratory results Abnormal [facility] Microscopic observation Gram stain Nom (Unsp spec) Positive Critically abnormal [facility] Basic metabolic 2000 panelon 10-20-2024 Anion gap [Moles/Vol] 15 mmol/L 10 - 2 0 mmol/L [facility] Calcium [Mass/Vol] 10.4 mg/dL 8.6 - 10. 6 mg/dL [facility] Chloride [Moles/Vol] 104 mmol/L 98 - 10 7 mmol/L [facility] CO2 [Moles/Vol] 27 mmol/L 21 - 32 mmol/L [facility] Creatinine [Mass/Vol] 1.39 mg/dL High 0.50 - 1.30 mg/dL [facility] GFR/1.73 sq M.predicted among non-blacks MDRD (S/P/Bld) [Vol rate/Area] 61 mL/min/{1.73_m2} - PINF [facility] Glucose [Mass/Vol] 102 mg/dL High 74 - 99 mg/dL Uni [facility] Interpretation and review of laboratory results Abnormal [facility] Potassium [Moles/Vol] 4.5 mmol/L 3.5 - 5.3 mmol/L [facility] Sodium [Moles/Vol] 141 mmol/L 136 - 145 mmol/L [facility] Urea nitrogen [Mass/Vol] 17 mg/dL 6 - 23 mg/d L [facility] Bedside PICC Imagingon 10-20 IMAGING Blood CultureOrdered By: Rubina Saravia on 10-20-2024 Bacteria identified Cx Nom (Bld) Staphylococcus hominis Abnormal [facility] CBC W Auto Differential pane l (Bld)on 10-20-2024 Basophils (Bld) [#/Vol] 0.11 10*3/uL High [facility] Basophils/100 WBC (Bld) 0.7 % 0.0 - 2.0 % [facility] Eosinophils (Bld) [#/Vol] 0.35 10*3/uL [facility] Eosinophils/100 WBC (Bld) 2.1 % 0.0 - 6.0 % [facility] Erythrocyte distribution width (RBC) [Ratio] 18.1 % High 11.5 - 14.5 % [facility] Hematocrit (Bld) [Volume fraction] 27.2 % Low 41.0 - 52.0 % [facility] Hemoglobin (Bld) [Mass/Vol] 8.4 g/dL Low 13.5 - 17.5 g/dL [facility] Immature granulocytes (Bld) [#/Vol] 0.12 10*3/uL [facility] Immature granulocytes/100 WBC (Bld) 0.7 % 0.0 - 0.9 % [facility] Interpretation and review of laboratory results Abnormal [facility] Lymphocytes (Bld) [#/Vol] 1.68 10*3/uL [facility] Lymphocytes/100 WBC (Bld) 10.2 % 13.0 - 44.0 % [facility] MCH (RBC) [Entitic mass] 27.9 pg 26. 0 - 34.0 pg [facility] MCHC (RBC) [Mass/Vol] 30.9 g/dL Low 32.0 - 36.0 g/dL [facility] MCV (RBC) [Entitic vol] 90 fL 80 - 100 fL [facility] Monocytes (Bld) [#/Vol] 1.29 10*3/uL High [facility] Monocytes/100 WBC (Bld) 7.8 % 2.0 - 10.0 % [facility] Neutrophils (Bld) [#/Vol] 12.9 10*3/uL High [facility] Neutrophils/100 WBC (Bld) 78.5 % 40.0 - 80.0 % [facility] Nucleated RBC/100 WBC (Bld) [Ratio] 0 % [facility] Platelets (Bld) [#/Vol] 604 10*3/uL High [facility] RBC (Bld) [#/Vol] 3.01 10*6/uL Low [facility] WBC (Bld) [#/Vol] 16.5 10*3/uL High [facility] Magnesiumon 10-20-2024 Magnesium [Mass/Vol] 2.13 mg/dL 1.60 - 2.40 mg/dL [facility] No Panel Informationon 10-20 Interpretation and review of laboratory results Normal [facility] Phosphoruson 10-20-2024 Phosphate [Mass/Vol] 3.2 mg/dL 2.5 - 4 .9 mg/dL [facility] Basic metabolic 2000 panelon 10-19-2024 Anion gap [Moles/Vol] 17 mmol/L 10 - 2 0 mmol/L [facility] Calcium [Mass/Vol] 10.2 mg/dL 8.6 - 10. 6 mg/dL [facility] Chloride [Moles/Vol] 102 mmol/L 98 - 10 7 mmol/L [facility] CO2 [Moles/Vol] 25 mmol/L 21 - 32 mmol/L [facility] Creatinine [Mass/Vol] 1.67 mg/dL High 0.50 - 1.30 mg/dL [facility] GFR/1.73 sq M.predicted among non-blacks MDRD (S/P/Bld) [Vol rate/Area] 49 mL/min/{1.73_m2} Low - PINF [facility] Glucose [Mass/Vol] 124 mg/dL High 74 - 99 mg/[facility] Interpretation and review of laboratory results Abnormal [facility] Potassium [Moles/Vol] 4 mmol/L 3.5 - 5.3 mmol/L [facility] Sodium [Moles/Vol] 140 mmol/L 136 - 145 mmol/L [facility] Urea nitrogen [Mass/Vol] 15 mg/dL 6 - 23 mg/d L [facility] CBC W Auto Differential pane l (Bld)on 10-19-2024 Basophils (Bld) [#/Vol] 0.1 10*3/uL [facility] Basophils/100 WBC (Bld) 0.7 % 0.0 - 2.0 % [facility] Eosinophils (Bld) [#/Vol] 0.41 10*3/uL [facility] Eosinophils/100 WBC (Bld) 2.8 % 0.0 - 6.0 % [facility] Erythrocyte distribution width (RBC) [Ratio] 17.8 % High 11.5 - 14.5 % [facility] Hematocrit (Bld) [Volume fraction] 25.9 % Low 41.0 - 52.0 % [facility] Hemoglobin (Bld) [Mass/Vol] 8 g/dL Low 13.5 - 17.5 g/dL [facility] Immature granulocytes (Bld) [#/Vol] 0.12 10*3/uL [facility] Immature granulocytes/100 WBC (Bld) 0.8 % 0.0 - 0.9 % [facility] Interpretation and review of laboratory results Abnormal [facility] Lymphocytes (Bld) [#/Vol] 2.16 10*3/uL [facility] Lymphocytes/100 WBC (Bld) 14.6 % 13.0 - 44.0 % [facility] MCH (RBC) [Entitic mass] 27.5 pg 26. 0 - 34.0 pg [facility] MCHC (RBC) [Mass/Vol] 30.9 g/dL Low 32.0 - 36.0 g/dL [facility] MCV (RBC) [Entitic vol] 89 fL 80 - 100 fL [facility] Monocytes (Bld) [#/Vol] 1.23 10*3/uL High [facility] Monocytes/100 WBC (Bld) 8.3 % 2.0 - 10.0 % [facility] Neutrophils (Bld) [#/Vol] 10.82 10*3/uL High [facility] Neutrophils/100 WBC (Bld) 72.8 % 40.0 - 80.0 % [facility] Nucleated RBC/100 WBC (Bld) [Ratio] 0 % [facility] Platelets (Bld) [#/Vol] 609 10*3/uL High [facility] RBC (Bld) [#/Vol] 2.91 10*6/uL [facility] WBC (Bld) [#/Vol] 14.8 10*3/uL [facility] Comprehensive metabolic 2000 panelon 10-19-2024 Albumin BCP dye [Mass/Vol] 3.4 g/dL 3.4 - 5.0 g/dL [facility] ALP [Catalytic activity/Vol] 76 U/L 33 - 120 U/L [facility] ALT With P-5'-P [Catalytic activity/Vol] 28 U/L 10 - 52 U/L [facility] Anion gap [Moles/Vol] 11 mmol/L 10 - 2 0 mmol/L [facility] AST With P-5'-P [Catalytic activity/Vol] 25 U/L 9 - 39 U/L [facility] Bilirubin [Mass/Vol] 0.2 mg/dL 0.0 - 1 .2 mg/dL [facility] Calcium [Mass/Vol] 10.2 mg/dL 8.6 - 10. 6 mg/dL [facility] Chloride [Moles/Vol] 103 mmol/L 98 - 10 7 mmol/L [facility] CO2 [Moles/Vol] 29 mmol/L 21 - 32 mmol/L [facility] Creatinine [Mass/Vol] 1.55 mg/dL High 0.50 - 1.30 mg/dL [facility] GFR/1.73 sq M.predicted among non-blacks MDRD (S/P/Bld) [Vol rate/Area] 54 mL/min/{1.73_m2} Low - PINF [facility] Glucose [Mass/Vol] 98 mg/dL 74 - 99 mg/dL Uni [facility] Interpretation and review of laboratory results Abnormal [facility] Potassium [Moles/Vol] 4.3 mmol/L 3.5 - 5.3 mmol/L [facility] Protein [Mass/Vol] 7.2 g/dL 6.4 - 8.2 g/dL [facility] Sodium [Moles/Vol] 139 mmol/L 136 - 145 mmol/L [facility] Urea nitrogen [Mass/Vol] 16 mg/dL 6 - 23 mg/d L [facility] Magnesiumon 10-19-2024 Magnesium [Mass/Vol] 2.25 mg/dL 1.60 - 2.40 mg/dL [facility] Magnesium [Mass/Vol] 2.03 mg/dL 1.60 - 2.40 mg/dL [facility] Magnesium [Mass/Vol]on 10-19 Interpretation and review of laboratory results Normal [facility] No Panel Informationon 10-19 Interpretation and review of laboratory results Normal [facility] Phosphate [Mass/Vol]on 10-19 Interpretation and review of laboratory results Normal [facility] Phosphoruson 10-19-2024 Phosphate [Mass/Vol] 3.4 mg/dL 2.5 - 4 .9 mg/dL [facility] Phosphate [Mass/Vol] 3.8 mg/dL 2.5 - 4 .9 mg/dL [facility] Vancomycinon 10-19-2024 Vancomycin [Mass/Vol] 16.6 ug/mL 5.0 - 20.0 ug/mL [facility] Vancomycin [Mass/Vol]on Interpretation and review of laboratory results Normal [facility] Bacteria identified Cx Nom ( Bld)Ordered By: Mary Milton on 10-18-2024 Bacteria identified Aer cx Nom (Bld) Positive [facility] Interpretation and review of laboratory results Abnormal [facility] Microscopic observation Gram stain Nom (Unsp spec) Positive Critically abnormal [facility] Blood CultureOrdered By: Bia Milton on 10-18-2024 Bacteria identified Cx Nom (Bld) Marta powers Abnormal [facility] CBC W Auto Differential pane l (Bld)on 10-18-2024 Basophils (Bld) [#/Vol] 0.09 10*3/uL [facility] Basophils/100 WBC (Bld) 0.6 % 0.0 - 2.0 % [facility] Eosinophils (Bld) [#/Vol] 0.35 10*3/uL [facility] Eosinophils/100 WBC (Bld) 2.2 % 0.0 - 6.0 % [facility] Erythrocyte distribution width (RBC) [Ratio] 17.8 % High 11.5 - 14.5 % [facility] Hematocrit (Bld) [Volume fraction] 27.3 % Low 41.0 - 52.0 % [facility] Hemoglobin (Bld) [Mass/Vol] 8.4 g/dL Low 13.5 - 17.5 g/dL [facility] Immature granulocytes (Bld) [#/Vol] 0.17 10*3/uL [facility] Immature granulocytes/100 WBC (Bld) 1.1 % High 0.0 - 0.9 % [facility] Interpretation and review of laboratory results Abnormal [facility] Lymphocytes (Bld) [#/Vol] 2.56 10*3/uL [facility] Lymphocytes/100 WBC (Bld) 16.4 % 13.0 - 44.0 % [facility] MCH (RBC) [Entitic mass] 27.8 pg 26. 0 - 34.0 pg [facility] MCHC (RBC) [Mass/Vol] 30.8 g/dL Low 32.0 - 36.0 g/dL [facility] MCV (RBC) [Entitic vol] 90 fL 80 - 100 fL [facility] Monocytes (Bld) [#/Vol] 1.3 10*3/uL High [facility] Monocytes/100 WBC (Bld) 8.3 % 2.0 - 10.0 % [facility] Neutrophils (Bld) [#/Vol] 11.1 10*3/uL High [facility] Neutrophils/100 WBC (Bld) 71.4 % 40.0 - 80.0 % [facility] Nucleated RBC/100 WBC (Bld) [Ratio] 0 % [facility] Platelets (Bld) [#/Vol] 605 10*3/uL High [facility] RBC (Bld) [#/Vol] 3.02 10*6/uL Low Unive [facility] WBC (Bld) [#/Vol] 15.6 10*3/uL [facility] Comprehensive metabolic 2000 panelon 10-18-2024 Albumin BCP dye [Mass/Vol] 3.4 g/dL 3.4 - 5.0 g/dL [facility] ALP [Catalytic activity/Vol] 70 U/L 33 - 120 U/L [facility] ALT With P-5'-P [Catalytic activity/Vol] 17 U/L 10 - 52 U/L [facility] Anion gap [Moles/Vol] 15 mmol/L 10 - 2 0 mmol/L [facility] AST With P-5'-P [Catalytic activity/Vol] 18 U/L 9 - 39 U/L [facility] Bilirubin [Mass/Vol] 0.2 mg/dL 0.0 - 1 .2 mg/dL [facility] Calcium [Mass/Vol] 10.1 mg/dL 8.6 - 10. 6 mg/dL [facility] Chloride [Moles/Vol] 101 mmol/L 98 - 10 7 mmol/L [facility] CO2 [Moles/Vol] 27 mmol/L 21 - 32 mmol/L [facility] Creatinine [Mass/Vol] 1.72 mg/dL High 0.50 - 1.30 mg/dL [facility] [facility] GFR/1.73 sq M.predicted among non-blacks MDRD (S/P/Bld) [Vol rate/Area] 48 mL/min/{1.73_m2} Low - PINF [facility] Glucose [Mass/Vol] 97 mg/dL 74 - 99 mg/dL Uni [facility] Interpretation and review of laboratory results Abnormal [facility] Potassium [Moles/Vol] 4 mmol/L 3.5 - 5.3 mmol/L [facility] Protein [Mass/Vol] 7.1 g/dL 6.4 - 8.2 g/dL [facility] Sodium [Moles/Vol] 139 mmol/L 136 - 145 mmol/L [facility] Urea nitrogen [Mass/Vol] 17 mg/dL 6 - 23 mg/d L [facility] Magnesiumon 10-18-2024 Magnesium [Mass/Vol] 2.13 mg/dL 1.60 - 2.40 mg/dL [facility] No Panel Informationon 10-18 [facility] Interpretation and review of laboratory results Normal [facility] Phosphoruson 10-18-2024 Phosphate [Mass/Vol] 3.2 mg/dL 2.5 - 4 .9 mg/dL [facility] Bacteria identified Cx Nom ( Bld)on 10-17-2024 Interpretation and review of laboratory results Normal [facility] Bacteria identified Cx Nom ( Unsp spec)Ordered By: Mari Monique on 10-17-2024 Beta lactamase organism identified Nom (Isol) Positive [facility] Microscopic observation Gram stain Nom (Unsp spec) No polymorphonuclear leukocytes seen [facility] Microscopic observation Gram stain Nom (Unsp spec) No organisms seen [facility] CBC W Auto Differential pane l (Bld)on 10-17-2024 Basophils (Bld) [#/Vol] 0.09 10*3/uL [facility] Basophils/100 WBC (Bld) 0.5 % 0.0 - 2.0 % [facility] Eosinophils (Bld) [#/Vol] 0.27 10*3/uL [facility] Eosinophils/100 WBC (Bld) 1.6 % 0.0 - 6.0 % [facility] Erythrocyte distribution width (RBC) [Ratio] 16.9 % High 11.5 - 14.5 % [facility] Hematocrit (Bld) [Volume fraction] 25.1 % Low 41.0 - 52.0 % [facility] Hemoglobin (Bld) [Mass/Vol] 8.5 g/dL Low 13.5 - 17.5 g/dL [facility] Immature granulocytes (Bld) [#/Vol] 0.13 10*3/uL [facility] Immature granulocytes/100 WBC (Bld) 0.8 % 0.0 - 0.9 % [facility] Interpretation and review of laboratory results Abnormal [facility] Lymphocytes (Bld) [#/Vol] 2.37 10*3/uL [facility] Lymphocytes/100 WBC (Bld) 14.2 % 13.0 - 44.0 % [facility] MCH (RBC) [Entitic mass] 28.1 pg 26. 0 - 34.0 pg [facility] MCHC (RBC) [Mass/Vol] 33.9 g/dL 32.0 - 36.0 g/dL [facility] MCV (RBC) [Entitic vol] 83 fL 80 - 100 fL [facility] Monocytes (Bld) [#/Vol] 1.31 10*3/uL High [facility] Monocytes/100 WBC (Bld) 7.8 % 2.0 - 10.0 % [facility] Neutrophils (Bld) [#/Vol] 12.54 10*3/uL High [facility] Neutrophils/100 WBC (Bld) 75.1 % 40.0 - 80.0 % [facility] Nucleated RBC/100 WBC (Bld) [Ratio] 0 % [facility] Platelets (Bld) [#/Vol] 590 10*3/uL High [facility] RBC (Bld) [#/Vol] 3.02 10*6/uL [facility] (Bld[facility] [#/Vol] 16.7 10*3/uL High Unive [facility] Comprehensive metabolic 2000 panelon 10-17-2024 Albumin BCP dye [Mass/Vol] 3.4 g/dL 3.4 - 5.0 g/dL [facility] ALP [Catalytic activity/Vol] 62 U/L 33 - 120 U/L [facility] ALT With P-5'-P [Catalytic activity/Vol] 11 U/L 10 - 52 U/L [facility] Anion gap [Moles/Vol] 16 mmol/L 10 - 2 0 mmol/L [facility] AST With P-5'-P [Catalytic activity/Vol] 35 U/L 9 - 39 U/L [facility] Bilirubin [Mass/Vol] 0.3 mg/dL 0.0 - 1 .2 mg/dL [facility] Calcium [Mass/Vol] 10.2 mg/dL 8.6 - 10. 6 mg/dL [facility] Chloride [Moles/Vol] 103 mmol/L 98 - 10 7 mmol/L [facility] CO2 [Moles/Vol] 25 mmol/L 21 - 32 mmol/L [facility] Creatinine [Mass/Vol] 1.62 mg/dL High 0.50 - 1.30 mg/dL [facility] GFR/1.73 sq M.predicted among non-blacks MDRD (S/P/Bld) [Vol rate/Area] 51 mL/min/{1.73_m2} Low - PINF [facility] Glucose [Mass/Vol] 91 mg/dL 74 - 99 mg/dL [facility] Potassium [Moles/Vol] 5.6 mmol/L High 3.5 - 5.3 mmol/L [facility] Protein [Mass/Vol] 7.3 g/dL 6.4 - 8.2 g/dL [facility] Sodium [Moles/Vol] 138 mmol/L 136 - 145 mmol/L [facility] Urea nitrogen [Mass/Vol] 14 mg/dL 6 - 23 mg/d L [facility] Laboratory - Microbiology an d Antimicrobial susceptibilityon 10-17-2024 Bacteria identified Cx Nom (Bld) No growth at 4 days - FINAL REPORT [facility] Magnesiumon 10-17-2024 Magnesium [Mass/Vol] 2.25 mg/dL 1.60 - 2.40 mg/dL [facility] Magnesium [Mass/Vol] 2.52 mg/dL High 1.60 - 2.40 mg/dL [facility] Magnesium [Mass/Vol]on 10-17 Interpretation and review of laboratory results Normal [facility] No Panel Informationon 10-17 [facility] Interpretation and review of laboratory results Normal [facility] Interpretation and review of laboratory results Abnormal [facility] Phosphoruson 10-17-2024 Phosphate [Mass/Vol] 4.1 mg/dL 2.5 - 4 .9 mg/dL [facility] Renal function 2000 panelon 10-17-2024 Albumin BCP dye [Mass/Vol] 3.7 g/dL 3.4 - 5.0 g/dL [facility] Anion gap [Moles/Vol] 14 mmol/L 10 - 2 0 mmol/L [facility] Calcium [Mass/Vol] 10.4 mg/dL 8.6 - 10. 6 mg/dL [facility] Chloride [Moles/Vol] 99 mmol/L 98 - 10 7 mmol/L [facility] CO2 [Moles/Vol] 27 mmol/L 21 - 32 mmol/L [facility] Creatinine [Mass/Vol] 1.62 mg/dL High 0.50 - 1.30 mg/dL [facility] GFR/1.73 sq M.predicted among non-blacks MDRD (S/P/Bld) [Vol rate/Area] 51 mL/min/{1.73_m2} Low - PINF [facility] Glucose [Mass/Vol] 98 mg/dL 74 - 99 mg/dL Uni [facility] Interpretation and review of laboratory results Abnormal [facility] Phosphate [Mass/Vol] 3.7 mg/dL 2.5 - 4 .9 mg/dL [facility] Potassium [Moles/Vol] 4.3 mmol/L 3.5 - 5.3 mmol/L [facility] Sodium [Moles/Vol] 136 mmol/L 136 - 145 mmol/L [facility] Urea nitrogen [Mass/Vol] 17 mg/dL 6 - 23 mg/d L [facility] Tissue/Wound Culture/SmearOr dered By: Mari Eneida on 10-17-2024 Bacteria identified Cx Nom (Unsp spec) (1+) Rare Mixed Anaerobic Bacteria [facility] Bacteria identified Cx Nom (Unsp spec) Negative [facility] Vancomycinon 10-17-2024 Vancomycin [Mass/Vol] 16.8 ug/mL 5.0 - 20.0 ug/mL [facility] Vancomycin [Mass/Vol]on 09-20 [facility] Blood type and Indirect anti body screen panel (Bld)on 10-16-2024 ABO group Nom (Bld) A [facility] group antibody screen Ql Negative [facility] D Ag Ql (Bld) Positive [facility] CBC W Auto Differential pane l (Bld)on 10-16-2024 Basophils (Bld) [#/Vol] 0.1 10*3/uL [facility] Basophils/100 WBC (Bld) 0.7 % 0.0 - 2.0 % [facility] Eosinophils (Bld) [#/Vol] 0.41 10*3/uL [facility] Eosinophils/100 WBC (Bld) 2.8 % 0.0 - 6.0 % [facility] Erythrocyte distribution width (RBC) [Ratio] 16.9 % High 11.5 - 14.5 % [facility] Hematocrit (Bld) [Volume fraction] 27.8 % Low 41.0 - 52.0 % [facility] Hemoglobin (Bld) [Mass/Vol] 8.9 g/dL Low 13.5 - 17.5 g/dL [facility] Immature granulocytes (Bld) [#/Vol] 0.17 10*3/uL [facility] Immature granulocytes/100 WBC (Bld) 1.2 % High 0.0 - 0.9 % [facility] Interpretation and review of laboratory results Abnormal [facility] Lymphocytes (Bld) [#/Vol] 2.54 10*3/uL [facility] Lymphocytes/100 WBC (Bld) 17.6 % 13.0 - 44.0 % [facility] MCH (RBC) [Entitic mass] 27.8 pg 26. 0 - 34.0 pg [facility] MCHC (RBC) [Mass/Vol] 32 g/dL 32.0 - 36.0 g/dL [facility] MCV (RBC) [Entitic vol] 87 fL 80 - 100 fL [facility] Monocytes (Bld) [#/Vol] 1.08 10*3/uL High [facility] Monocytes/100 WBC (Bld) 7.5 % 2.0 - 10.0 % [facility] Neutrophils (Bld) [#/Vol] 10.11 10*3/uL High [facility] Neutrophils/100 WBC (Bld) 70.2 % 40.0 - 80.0 % [facility] Nucleated RBC/100 WBC (Bld) [Ratio] 0 % [facility] Platelets (Bld) [#/Vol] 633 10*3/uL High [facility] RBC (Bld) [#/Vol] 3.2 10*6/uL Low [facility] WBC (Bld) [#/Vol] 14.4 10*3/uL High Unive [facility] Comprehensive metabolic 2000 panelon 10-16-2024 Albumin BCP dye [Mass/Vol] 3.4 g/dL 3.4 - 5.0 g/dL [facility] ALP [Catalytic activity/Vol] 60 U/L 33 - 120 U/L [facility] ALT With P-5'-P [Catalytic activity/Vol] 10 U/L 10 - 52 U/L [facility] Anion gap [Moles/Vol] 13 mmol/L 10 - 2 0 mmol/L [facility] AST With P-5'-P [Catalytic activity/Vol] 11 U/L 9 - 39 U/L [facility] Bilirubin [Mass/Vol] 0.2 mg/dL 0.0 - 1 .2 mg/dL [facility] Calcium [Mass/Vol] 10 mg/dL 8.6 - 10. 6 mg/dL [facility] Chloride [Moles/Vol] 103 mmol/L 98 - 10 7 mmol/L [facility] CO2 [Moles/Vol] 26 mmol/L 21 - 32 mmol/L [facility] Creatinine [Mass/Vol] 1.5 mg/dL High 0.50 - 1.30 mg/dL [facility] GFR/1.73 sq M.predicted among non-blacks MDRD (S/P/Bld) [Vol rate/Area] 56 mL/min/{1.73_m2} Low - PINF [facility] Glucose [Mass/Vol] 104 mg/dL High 74 - 99 mg/dL Uni [facility] Interpretation and review of laboratory results Abnormal [facility] Potassium [Moles/Vol] 4.3 mmol/L 3.5 - 5.3 mmol/L [facility] Protein [Mass/Vol] 7.2 g/dL 6.4 - 8.2 g/dL [facility] Sodium [Moles/Vol] 138 mmol/L 136 - 145 mmol/L [facility] Urea nitrogen [Mass/Vol] 12 mg/dL 6 - 23 mg/d L [facility] Electrocardiogram, 12-lead P RN ACS symptomsOrdered By: Campos Villa on 10-16-2024 Atrial Rate 126 BPM [facility] Work Phone: P [place] 72 degrees [facility] Work Phone: [phone] P Offset 218 ms [facility] Work Phone: [phone] P Onset 153 ms [facility] Work Phone: [phone] DC Interval 144 ms [facility] Work Phone: [phone] Q Onset 225 ms [facility] Work Phone: [phone] QRS Count 21 beats [facility] Work Phone: [phone] QRS Duration 94 ms [facility] Work Phone: [phone] QT Interval 324 ms [facility] Work Phone: [phone] QTC Calculation(Bazett) 469 ms U [facility] Work Phone: [phone] QTC Fredericia 415 ms [facility] Work Phone: [phone] R [place] 49 degrees [facility] Work Phone: [phone] T [place] 101 degrees [facility] Work Phone: [phone] T Offset 387 ms [facility] Work Phone: [phone] Ventricular Rate [address] [facility] Work Phone: [phone] [facility] Work Phone: [phone] Electrocardiogram, 12-lead P RN ACS symptomson 10-16-2024 MUSE [facility] Work Phone: Magnesiumon 10-16-2024 Magnesium [Mass/Vol] 2.16 mg/dL 1.60 - 2.40 mg/dL [facility] No Panel Informationon 10-16 Interpretation and review of laboratory results Normal [facility] PT and aPTT panel Coag (PPP) on 10-16-2024 aPTT Coag (PPP) [Time] 30 s Un [facility] INR Coag (PPP) [Relative time] 1 {INR} 0.9 - 1.1 [facility] Interpretation and review of laboratory results Normal [facility] PT Coag (PPP) [Time] 11.[address] [facility] Phosphoruson 10-16-2024 Phosphate [Mass/Vol] 3.2 mg/dL 2.5 - 4 .9 mg/dL [facility] CBC W Auto Differential pane l (Bld)on 10-15-2024 Basophils (Bld) [#/Vol] 0.1 10*3/uL [facility] Basophils/100 WBC (Bld) 0.8 % 0.0 - 2.0 % [facility] Eosinophils (Bld) [#/Vol] 0.4 10*3/uL [facility] Eosinophils/100 WBC (Bld) 3.1 % 0.0 - 6.0 % [facility] Erythrocyte distribution width (RBC) [Ratio] 17.1 % High 11.5 - 14.5 % [facility] Hematocrit (Bld) [Volume fraction] 29.1 % Low 41.0 - 52.0 % [facility] Hemoglobin (Bld) [Mass/Vol] 9.2 g/dL Low 13.5 - 17.5 g/dL [facility] Immature granulocytes (Bld) [#/Vol] 0.09 10*3/uL [facility] Immature granulocytes/100 WBC (Bld) 0.7 % 0.0 - 0.9 % [facility] Interpretation and review of laboratory results Abnormal [facility] Lymphocytes (Bld) [#/Vol] 2.77 10*3/uL [facility] Lymphocytes/100 WBC (Bld) 21.4 % 13.0 - 44.0 % [facility] MCH (RBC) [Entitic mass] 28.4 pg 26. 0 - 34.0 pg [facility] MCHC (RBC) [Mass/Vol] 31.6 g/dL Low 32.0 - 36.0 g/dL [facility] MCV (RBC) [Entitic vol] 90 fL 80 - 100 fL [facility] Monocytes (Bld) [#/Vol] 0.98 10*3/uL [facility] Monocytes/100 WBC (Bld) 7.6 % 2.0 - 10.0 % [facility] Neutrophils (Bld) [#/Vol] 8.58 10*3/uL [facility] Neutrophils/100 WBC (Bld) 66.4 % 40.0 - 80.0 % [facility] Nucleated RBC/100 WBC (Bld) [Ratio] 0 % [facility] Platelets (Bld) [#/Vol] 635 10*3/uL High [facility] RBC (Bld) [#/Vol] 3.24 10*6/uL Low [facility] WBC (Bld) [#/Vol] 12.9 10*3/uL [facility] Comprehensive metabolic 2000 panelon 10-15-2024 Albumin BCP dye [Mass/Vol] 3.3 g/dL Low 3.4 - 5.0 g/dL [facility] ALP [Catalytic activity/Vol] 60 U/L 33 - 120 U/L [facility] ALT With P-5'-P [Catalytic activity/Vol] 9 U/L Low 10 - 52 U/L [facility] Anion gap [Moles/Vol] 13 mmol/L 10 - 2 0 mmol/L [facility] AST With P-5'-P [Catalytic activity/Vol] 9 U/L 9 - 39 U/L [facility] Bilirubin [Mass/Vol] 0.2 mg/dL 0.0 - 1 .2 mg/dL [facility] Calcium [Mass/Vol] 9.5 mg/dL 8.6 - 10. 6 mg/dL [facility] Chloride [Moles/Vol] 102 mmol/L 98 - 10 7 mmol/L [facility] CO2 [Moles/Vol] 27 mmol/L 21 - 32 mmol/L [facility] Creatinine [Mass/Vol] 1.53 mg/dL High 0.50 - 1.30 mg/dL [facility] GFR/1.73 sq M.predicted among non-blacks MDRD (S/P/Bld) [Vol rate/Area] 55 mL/min/{1.73_m2} Low - PINF [facility] Glucose [Mass/Vol] 94 mg/dL 74 - 99 mg/dL [facility] Interpretation and review of laboratory results Abnormal [facility] Potassium [Moles/Vol] 4 mmol/L 3.5 - 5.3 mmol/L [facility] Protein [Mass/Vol] 6.9 g/dL 6.4 - 8.2 g/dL [facility] Sodium [Moles/Vol] 138 mmol/L 136 - 145 mmol/L [facility] Urea nitrogen [Mass/Vol] 10 mg/dL 6 - 23 mg/d L [facility] Magnesiumon 10-15-2024 Magnesium [Mass/Vol] 2.11 mg/dL 1.60 - 2.40 mg/dL [facility] No Panel Informationon 10-15 Interpretation and review of laboratory results Normal [facility] Phosphoruson 10-15-2024 Phosphate [Mass/Vol] 2.5 mg/dL 2.5 - 4 .9 mg/dL [facility] CBC W Auto Differential pane l (Bld)on 10-14-2024 Basophils (Bld) [#/Vol] 0.08 10*3/uL [facility] Basophils/100 WBC (Bld) 0.5 % 0.0 - 2.0 % [facility] Eosinophils (Bld) [#/Vol] 0.3 10*3/uL [facility] Eosinophils/100 WBC (Bld) 2 % 0.0 - 6.0 % [facility] Erythrocyte distribution width (RBC) [Ratio] 17.2 % High 11.5 - 14.5 % [facility] Hematocrit (Bld) [Volume fraction] 26.6 % Low 41.0 - 52.0 % [facility] Hemoglobin (Bld) [Mass/Vol] 8.1 g/dL Low 13.5 - 17.5 g/dL [facility] Immature granulocytes (Bld) [#/Vol] 0.13 10*3/uL [facility] Immature granulocytes/100 WBC (Bld) 0.9 % 0.0 - 0.9 % [facility] Interpretation and review of laboratory results Abnormal [facility] Lymphocytes (Bld) [#/Vol] 1.96 10*3/uL [facility] Lymphocytes/100 WBC (Bld) 13.1 % 13.0 - 44.0 % [facility] MCH (RBC) [Entitic mass] 27.6 pg 26. 0 - 34.0 pg [facility] MCHC (RBC) [Mass/Vol] 30.5 g/dL Low 32.0 - 36.0 g/dL [facility] MCV (RBC) [Entitic vol] 91 fL 80 - 100 fL [facility] Monocytes (Bld) [#/Vol] 0.84 10*3/uL [facility] Monocytes/100 WBC (Bld) 5.6 % 2.0 - 10.0 % [facility] Neutrophils (Bld) [#/Vol] 11.69 10*3/uL High [facility] Neutrophils/100 WBC (Bld) 77.9 % 40.0 - 80.0 % [facility] Nucleated RBC/100 WBC (Bld) [Ratio] 0 % [facility] Platelets (Bld) [#/Vol] 561 10*3/uL High [facility] RBC (Bld) [#/Vol] 2.94 10*6/uL Low [facility] WBC (Bld) [#/Vol] 15 10*3/uL [facility] Comprehensive metabolic 2000 panelon 10-14-2024 Albumin BCP dye [Mass/Vol] 3.1 g/dL Low 3.4 - 5.0 g/dL [facility] ALP [Catalytic activity/Vol] 60 U/L 33 - 120 U/L [facility] ALT With P-5'-P [Catalytic activity/Vol] 9 U/L Low 10 - 52 U/L [facility] Anion gap [Moles/Vol] 13 mmol/L 10 - 2 0 mmol/L [facility] AST With P-5'-P [Catalytic activity/Vol] 6 U/L Low 9 - 39 U/L [facility] Bilirubin [Mass/Vol] 0.2 mg/dL 0.0 - 1 .2 mg/dL [facility] Calcium [Mass/Vol] 9 mg/dL 8.6 - 10. 6 mg/dL [facility] Chloride [Moles/Vol] 102 mmol/L 98 - 10 7 mmol/L [facility] CO2 [Moles/Vol] 26 mmol/L 21 - 32 mmol/L [facility] Creatinine [Mass/Vol] 1.44 mg/dL High 0.50 - 1.30 mg/dL [facility] GFR/1.73 sq M.predicted among non-blacks MDRD (S/P/Bld) [Vol rate/Area] 59 mL/min/{1.73_m2} Low - PINF [facility] Glucose [Mass/Vol] 163 mg/dL High 74 - 99 mg/dL [facility] Interpretation and review of laboratory results Abnormal [facility] Potassium [Moles/Vol] 3.9 mmol/L 3.5 - 5.3 mmol/L [facility] Protein [Mass/Vol] 6.4 g/dL 6.4 - 8.2 g/dL [facility] Sodium [Moles/Vol] 137 mmol/L 136 - 145 mmol/L [facility] Urea nitrogen [Mass/Vol] 15 mg/dL 6 - 23 mg/d L [facility] Extra Urine [facility] Tubeon 09-19 Extra Tube Hold for add-ons. [facility] Lactateon 10-14-2024 Lactate [Moles/Vol] 1.2 mmol/L 0.4 - 2. 0 mmol/L [facility] Lactate [Moles/Vol] 2.3 mmol/L High 0.4 - 2. 0 mmol/L [facility] Lactate [Moles/Vol]on 2024 Interpretation and review of laboratory results Normal [facility] Interpretation and review of laboratory results Abnormal [facility] No Panel Informationon 10-14 [facility] Vancomycinon 10-14-2024 Vancomycin [Mass/Vol] 14.7 ug/mL 5.0 - 20.0 ug/mL [facility] Vancomycin [Mass/Vol]on 01-2 7-2025 Interpretation and review of laboratory results Normal [facility] Bacteria identified Cx Nom ( Unsp spec)Ordered By: Alejandra Andrade on 10-13-2024 Beta lactamase organism identified Nom (Isol) Positive [facility] Interpretation and review of laboratory results Abnormal [facility] Microscopic observation Gram stain Nom (Unsp spec) No polymorphonuclear leukocytes seen Abnormal [facility] Microscopic observation Gram stain Nom (Unsp spec) Positive Abnormal [facility] CBC W Auto Differential pane l (Bld)on 10-13-2024 Basophils (Bld) [#/Vol] 0.06 10*3/uL [facility] Basophils/100 WBC (Bld) 0.2 % 0.0 - 2.0 % [facility] Eosinophils (Bld) [#/Vol] 0.18 10*3/uL [facility] Eosinophils/100 WBC (Bld) 0.7 % 0.0 - 6.0 % [facility] Erythrocyte distribution width (RBC) [Ratio] 16.9 % High 11.5 - 14.5 % [facility] Hematocrit (Bld) [Volume fraction] 25.6 % Low 41.0 - 52.0 % [facility] Hemoglobin (Bld) [Mass/Vol] 8.3 g/dL Low 13.5 - 17.5 g/dL [facility] Immature granulocytes (Bld) [#/Vol] 0.15 10*3/uL [facility] North Immature granulocytes/100 WBC (Bld) 0.6 % 0.0 - 0.9 % [facility] Interpretation and review of laboratory results Abnormal [facility] Lymphocytes (Bld) [#/Vol] 2.13 10*3/uL [facility] Lymphocytes/100 WBC (Bld) 8.9 % 13.0 - 44.0 % [facility] MCH (RBC) [Entitic mass] 28.4 pg 26. 0 - 34.0 pg [facility] MCHC (RBC) [Mass/Vol] 32.4 g/dL 32.0 - 36.0 g/dL [facility] MCV (RBC) [Entitic vol] 88 fL 80 - 100 fL [facility] Monocytes (Bld) [#/Vol] 1.37 10*3/uL High [facility] Monocytes/100 WBC (Bld) 5.7 % 2.0 - 10.0 % [facility] Neutrophils (Bld) [#/Vol] 20.15 10*3/uL High [facility] Neutrophils/100 WBC (Bld) 83.9 % 40.0 - 80.0 % [facility] Nucleated RBC/100 WBC (Bld) [Ratio] 0 % [facility] Platelets (Bld) [#/Vol] 579 10*3/uL High [facility] RBC (Bld) [#/Vol] 2.92 10*6/uL [facility] WBC (Bld) [#/Vol] 24 10*3/uL [facility] Erythrocyte distribution width (RBC) [Ratio] 17 % High 11.5 - 14.5 % [facility] Hematocrit (Bld) [Volume fraction] 34.1 % Low 41.0 - 52.0 % [facility] Hemoglobin (Bld) [Mass/Vol] 10.5 g/dL Low 13.5 - 17.5 g/dL [facility] Immature granulocytes (Bld) [#/Vol] 0.32 10*3/uL [facility] Immature granulocytes/100 WBC (Bld) 1.1 % High 0.0 - 0.9 % [facility] MCH (RBC) [Entitic mass] 27.9 pg 26. 0 - 34.0 pg [facility] MCHC (RBC) [Mass/Vol] 30.8 g/dL Low 32.0 - 36.0 g/dL [facility] MCV (RBC) [Entitic vol] 91 fL 80 - 100 fL [facility] Nucleated RBC/100 WBC (Bld) [Ratio] 0 % [facility] Platelets (Bld) [#/Vol] 755 10*3/uL High [facility] RBC (Bld) [#/Vol] 3.76 10*6/uL [facility] WBC (Bld) [#/Vol] 30.1 10*3/uL [facility] Comprehensive metabolic 2000 panelon 10-13-2024 Albumin BCP dye [Mass/Vol] 3.9 g/dL 3.4 - 5.0 g/dL [facility] ALP [Catalytic activity/Vol] 76 U/L 33 - 120 U/L [facility] ALT With P-5'-P [Catalytic activity/Vol] 9 U/L Low 10 - 52 U/L [facility] Anion gap [Moles/Vol] 18 mmol/L 10 - 2 0 mmol/L [facility] AST With P-5'-P [Catalytic activity/Vol] 10 U/L 9 - 39 U/L [facility] Bilirubin [Mass/Vol] 0.4 mg/dL 0.0 - 1 .2 mg/dL [facility] Calcium [Mass/Vol] 10.4 mg/dL 8.6 - 10. 6 mg/dL [facility] Chloride [Moles/Vol] 100 mmol/L 98 - 10 7 mmol/L [facility] CO2 [Moles/Vol] 26 mmol/L 21 - 32 mmol/L [facility] Creatinine [Mass/Vol] 1.84 mg/dL High 0.50 - 1.30 mg/dL [facility] GFR/1.73 sq M.predicted among non-blacks MDRD (S/P/Bld) [Vol rate/Area] 44 mL/min/{1.73_m2} Low - PINF [facility] Glucose [Mass/Vol] 144 mg/dL High 74 - 99 mg/dL [facility] Interpretation and review of laboratory results Abnormal [facility] Potassium [Moles/Vol] 4.5 mmol/L 3.5 - 5.3 mmol/L [facility] Protein [Mass/Vol] 7.5 g/dL 6.4 - 8.2 g/dL [facility] Sodium [Moles/Vol] 139 mmol/L 136 - 145 mmol/L [facility] Urea nitrogen [Mass/Vol] 19 mg/dL 6 - 23 mg/d L [facility] ECG 12-LEADon 10-13-2024 ECG 12-LEAD Ventricular Rate 126 Atrial Rate 126 P-R Interval 144 QRS Duration 94 Q-T Interval 324 QTC Calculation(Bazett) 469 P Macon 72 R Macon 49 T Macon 101 QRS Count 21 Q Onset 225 P Onset 153 P Offset 218 T Offset 387 QTC Fredericia [address] & T wave abnormality, consider lateral ischemia Abnormal ECG Confirmed by Campos Villa ([id number]) on 10/16/2024 6:09:33 PM Normal [facility] Gas and Carbon monoxide and Electrolytes panel (BldA)on 10-13-2024 Anion gap 4 (BldA) [Moles/Vol] 11 [facility] Base excess Calc (Bld) [Moles/Vol] -1 mmol/L -2.0 - 3.0 mmol/L [facility] Calcium.ionized (BldA) [Moles/Vol] 1.3 mmol/L 1.10 - 1.33 mmol/L [facility] Chloride (BldA) [Moles/Vol] 104 mmol/L 98 - 107 mmol/L [facility] CO2 (Bld) [Partial pressure] 42 mm[Hg] [facility] Glucose [Mass/Vol] 152 mg/dL High 74 - 99 mg/dL [facility] HCO3 (Bld) [Moles/Vol] 24.3 mmol/L 22.0 - 26.0 mmol/L [facility] Hematocrit Est (Bld) [Volume fraction] 29 % Low 41.0 - 52.0 % [facility] Hemoglobin (Bld) [Mass/Vol] 9.5 g/dL Low 13.5 - 17.5 g/dL [facility] Inhaled oxygen concentration 28 % [facility] Interpretation and review of laboratory results Abnormal [facility] Lactate (BldA) [Moles/Vol] 0.9 mmol/L 0.4 - 2.0 mmol/L [facility] Oxygen (Bld) [Partial pressure] 73 mm[Hg] Low [facility] Oxyhemoglobin (BldA) [Mass fraction] 94.4 % 94.0 - 98.0 % [facility] pH (Bld) 7.37 [pH] Low 7.38 - 7.42 pH [facility] Potassium (BldA) [Moles/Vol] 4.1 mmol/L 3.5 - 5.3 mmol/L [facility] Sodium (BldA) [Moles/Vol] 135 mmol/L Low 136 - 145 mmol/L [facility] Gas panel (BldV)on 5 Anion gap 4 (BldV) [Moles/Vol] 10 mmol/L 10.0 - 25.0 mmol/L [facility] Base excess Calc (BldV) [Moles/Vol] -0.4000 mmol/L -2.0 - 3.0 mmol/L [facility] Calcium.ionized (BldV) [Moles/Vol] 1.31 mmol/L 1.10 - 1.33 mmol/L [facility] Chloride (BldV) [Moles/Vol] 104 mmol/L 98 - 107 mmol/L [facility] CO2 (BldV) [Partial pressure] 51 mm[Hg] [facility] Glucose [Mass/Vol] 154 mg/dL High 74 - 99 mg/[facility] (Bld) [Moles/Vol] 26.3 mmol/L High 22.0 - 26.0 mmol/L [facility] Hematocrit Est (Bld) [Volume fraction] 36 % Low 41.0 - 52.0 % [facility] Hemoglobin (Bld) [Mass/Vol] 12 g/dL Low 13.5 - 17.5 g/dL [facility] Inhaled oxygen concentration 28 % [facility] Interpretation and review of laboratory results Abnormal [facility] Lactate (BldV) [Moles/Vol] 2.2 mmol/L High 0.4 - 2.0 mmol/L [facility] Oxygen (BldV) [Partial pressure] 36 mm[Hg] [facility] Oxygen saturation in Venous blood 53 % 45 - 75 % [facility] Oxyhemoglobin (BldV) [Mass fraction] 52.4 % 45.0 - 75.0 % [facility] pH (BldV) 7.32 [pH] Low 7.33 - 7.43 pH [facility] Potassium (BldV) [Moles/Vol] 4.3 mmol/L 3.5 - 5.3 mmol/L [facility] Sodium (BldV) [Moles/Vol] 136 mmol/L 136 - 145 mmol/L [facility] Lactateon 10-13-2024 Lactate [Moles/Vol] 2.6 mmol/L High 0.4 - 2. 0 mmol/L [facility] Lactate [Moles/Vol] 1.8 mmol/L 0.4 - 2. 0 mmol/L [facility] Lactate [Moles/Vol]on 2024 Interpretation and review of laboratory results Abnormal [facility] Interpretation and review of laboratory results Normal [facility] Manual differential performe d Ql (Bld)on 10-13-2024 Band form neutrophils (Bld) [#/Vol] 4.67 10*3/uL [facility] Band form neutrophils/100 WBC (Bld) 15.5 % 0.0 - 5.0 % [facility] Basophils (Bld) [#/Vol] 0 10*3/uL [facility] Basophils/100 WBC (Bld) 0 % 0.0 - 2.0 % [facility] Cells Counted Total (Bld) [#] 116 {cells} [facility] Eosinophils (Bld) [#/Vol] 0 10*3/uL [facility] Eosinophils/100 WBC (Bld) 0 % 0.0 - 6.0 % [facility] Lymphocytes (Bld) [#/Vol] 1.02 10*3/uL Low [facility] Lymphocytes/100 WBC (Bld) 3.4 % 13.0 - 44.0 % [facility] Monocytes (Bld) [#/Vol] 0.78 10*3/uL [facility] Monocytes/100 WBC (Bld) 2.6 % 2.0 - 10.0 % [facility] Myelocytes (Bld) [#/Vol] 0.27 10*3/uL [facility] Myelocytes/100 WBC (Bld) 0.9 % 0.0 - 0.0 % [facility] Neutrophils (Bld) [#/Vol] 27.25 10*3/uL [facility] Promyelocytes (Bld) [#/Vol] 0.27 10*3/uL [facility] Promyelocytes/100 WBC (Bld) 0.9 % 0.0 - 0.0 % [facility] RBC morphology finding Nom (Bld) No significant RBC morphology present [facility] Segmented neutrophils (Bld) [#/Vol] 22.58 10*3/uL [facility] Segmented neutrophils/100 WBC (Bld) 75 % 40.0 - 80.0 % [facility] Variant lymphocytes (Bld) [#/Vol] 0.51 10*3/uL [facility] Variant lymphocytes/100 WBC (Bld) 1.7 % 0.0 - 2.0 % [facility] Natriuretic peptide B [Mass/ Vol]on 10-13-2024 Interpretation and review of laboratory results Normal [facility] Natriuretic peptide B (Bld) [Mass/Vol] 6 pg/mL 0 - 99 pg/mL [facility] No Panel Informationon 10-13 Interpretation and review of laboratory results Abnormal [facility] Tissue/Wound Culture/SmearOr dered By: Alejandra Andrade on 10-13-2024 Bacteria identified Cx Nom (Unsp spec) (4+) Abundant Mixed Gram-Positive and Gram-Negative Bacteria [facility] Bacteria identified Cx Nom (Unsp spec) (4+) Abundant Mixed Anaerobic Bacteria [facility] Tropinin I.cardiac panel Hig h sensitivity methodon 10-13-2024 Interpretation and review of laboratory results Normal [facility] Troponin I, High Sensitivity on 10-13-2024 Tropinin I.cardiac panel High sensitivity method ng/L 0 - 53 ng/L [facility] Urinalysis complete W Reflex Culture panel (U)Ordered By: Vinita Arenas on 10-13-2024 Appearance (U) Clear Clear [facility] Bilirubin (U) [Mass/Vol] Negative NEGATIVE [facility] Color (U) Light-Yellow Light-Yellow, Yellow, Dark-Yellow [facility] Glucose Auto test strip (U) [Mass/Vol] Normal Normal mg/dL [facility] Interpretation and review of laboratory results Abnormal [facility] Ketones (U) [Mass/Vol] Negative NEGAT SULEMA mg/dL [facility] Leukocyte esterase Auto test strip Ql (U) Negative NEGATIVE [facility] Nitrite Auto test strip Ql (U) Negative NEGATIVE [facility] pH (U) 6.5 [pH] 5.0, 5.5, 6.0, 6.5, 7.0, 7.5, 8.0 [facility] Protein (U) [Mass/Vol] 10 (TRACE) NEGAT SULEMA, 10 (TRACE), 20 (TRACE) mg/dL [facility] RBC (U) [#/Vol] 0.03 (TRACE) Abnormal NEGATIVE [facility] Specific gravity (U) [Rel density] 1.023 1.005 - 1.035 [facility] Urobilinogen (U) [Mass/Vol] Normal Normal mg/dL [facility] Urinalysis complete W Reflex Culture panel (U)on 10-13-2024 Interpretation and review of laboratory results Normal [facility] Work Phone: RBC Auto (Urine sed) [#/Area] 3-5 NONE, 1-2, 3-5 /HPF [facility] Work Phone: WBC Auto (Urine sed) [#/Area] 1-5 1-5, NONE /HPF [facility] Work Phone: CBC W Auto Differential pane l (Bld)on 10-12-2024 Basophils (Bld) [#/Vol] 0.09 10*3/uL [facility] Basophils/100 WBC (Bld) 0.6 % 0.0 - 2.0 % [facility] Eosinophils (Bld) [#/Vol] 0.36 10*3/uL [facility] Eosinophils/100 WBC (Bld) 2.5 % 0.0 - 6.0 % [facility] Erythrocyte distribution width (RBC) [Ratio] 17.3 % High 11.5 - 14.5 % [facility] Hematocrit (Bld) [Volume fraction] 30.8 % Low 41.0 - 52.0 % [facility] Hemoglobin (Bld) [Mass/Vol] 9.5 g/dL Low 13.5 - 17.5 g/dL [facility] Immature granulocytes (Bld) [#/Vol] 0.15 10*3/uL [facility] Immature granulocytes/100 WBC (Bld) 1 % High 0.0 - 0.9 % [facility] Interpretation and review of laboratory results Abnormal [facility] Lymphocytes (Bld) [#/Vol] 2.52 10*3/uL [facility] Lymphocytes/100 WBC (Bld) 17.2 % 13.0 - 44.0 % [facility] MCH (RBC) [Entitic mass] 27.3 pg 26. 0 - 34.0 pg [facility] MCHC (RBC) [Mass/Vol] 30.8 g/dL Low 32.0 - 36.0 g/dL [facility] MCV (RBC) [Entitic vol] 89 fL 80 - 100 fL [facility] Monocytes (Bld) [#/Vol] 1.39 10*3/uL High [facility] Monocytes/100 WBC (Bld) 9.5 % 2.0 - 10.0 % [facility] Neutrophils (Bld) [#/Vol] 10.11 10*3/uL High [facility] Neutrophils/100 WBC (Bld) 69.2 % 40.0 - 80.0 % [facility] Nucleated RBC/100 WBC (Bld) [Ratio] 0 % [facility] Platelets (Bld) [#/Vol] 633 10*3/uL High [facility] RBC (Bld) [#/Vol] 3.48 10*6/uL Low Unive [facility] WBC (Bld) [#/Vol] 14.6 10*3/uL High [facility]ive [facility] Comprehensive metabolic 2000 panelon 10-12-2024 Albumin BCP dye [Mass/Vol] 3.5 g/dL 3.4 - 5.0 g/dL [facility] ALP [Catalytic activity/Vol] 66 U/L 33 - 120 U/L [facility] ALT With P-5'-P [Catalytic activity/Vol] 8 U/L Low 10 - 52 U/L [facility] Anion gap [Moles/Vol] 14 mmol/L 10 - 2 0 mmol/L [facility] AST With P-5'-P [Catalytic activity/Vol] 11 U/L 9 - 39 U/L [facility] Bilirubin [Mass/Vol] 0.3 mg/dL 0.0 - 1 .2 mg/dL [facility] Calcium [Mass/Vol] 10 mg/dL 8.6 - 10. 6 mg/dL [facility] Chloride [Moles/Vol] 101 mmol/L 98 - 10 7 mmol/L [facility] CO2 [Moles/Vol] 25 mmol/L 21 - 32 mmol/L [facility] Creatinine [Mass/Vol] 1.61 mg/dL High 0.50 - 1.30 mg/dL [facility] GFR/1.73 sq M.predicted among non-blacks MDRD (S/P/Bld) [Vol rate/Area] 51 mL/min/{1.73_m2} Low - PINF [facility] Glucose [Mass/Vol] 100 mg/dL High 74 - 99 mg/dL [facility] Interpretation and review of laboratory results Abnormal [facility] Potassium [Moles/Vol] 4 mmol/L 3.5 - 5.3 mmol/L [facility] Protein [Mass/Vol] 7.4 g/dL 6.4 - 8.2 g/dL [facility] Sodium [Moles/Vol] 136 mmol/L 136 - 145 mmol/L [facility] Urea nitrogen [Mass/Vol] 16 mg/dL 6 - 23 mg/d L [facility] No Panel Informationon 10-12 [facility] Vancomycinon 10-12-2024 Vancomycin [Mass/Vol] 13.6 ug/mL 5.0 - 20.0 ug/mL [facility] Vancomycin [Mass/Vol]on 09-19 Interpretation and review of laboratory results Normal [facility] Blood type and Indirect anti body screen panel (Bld)on 10-11-2024 ABO group Nom (Bld) A Unive [facility] Blood group antibody screen Ql Negative [facility] D Ag Ql (Bld) Positive [facility] C-reactive proteinon 025 CRP [Mass/Vol] 7.72 mg/dL High NINF - 1.00 mg/dL [facility] CBC W Auto Differential pane l (Bld)on 10-11-2024 Basophils (Bld) [#/Vol] 0.06 10*3/uL [facility] Basophils/100 WBC (Bld) 0.4 % 0.0 - 2.0 % [facility] Eosinophils (Bld) [#/Vol] 0.39 10*3/uL [facility] Eosinophils/100 WBC (Bld) 2.7 % 0.0 - 6.0 % [facility] Erythrocyte distribution width (RBC) [Ratio] 17.2 % High 11.5 - 14.5 % [facility] Hematocrit (Bld) [Volume fraction] 28.7 % Low 41.0 - 52.0 % [facility] Hemoglobin (Bld) [Mass/Vol] 9.6 g/dL Low 13.5 - 17.5 g/dL [facility] Immature granulocytes (Bld) [#/Vol] 0.17 10*3/uL [facility] Immature granulocytes/100 WBC (Bld) 1.2 % High 0.0 - 0.9 % [facility] Interpretation and review of laboratory results Abnormal [facility] Lymphocytes (Bld) [#/Vol] 3.37 10*3/uL [facility] Lymphocytes/100 WBC (Bld) 23.6 % 13.0 - 44.0 % [facility] MCH (RBC) [Entitic mass] 28.2 pg 26. 0 - 34.0 pg [facility] MCHC (RBC) [Mass/Vol] 33.4 g/dL 32.0 - 36.0 g/dL [facility] MCV (RBC) [Entitic vol] 84 fL 80 - 100 fL [facility] Monocytes (Bld) [#/Vol] 1.62 10*3/uL High [facility] Monocytes/100 WBC (Bld) 11.3 % 2.0 - 10.0 % [facility] Neutrophils (Bld) [#/Vol] 8.67 10*3/uL High [facility] Neutrophils/100 WBC (Bld) 60.8 % 40.0 - 80.0 % [facility] Nucleated RBC/100 WBC (Bld) [Ratio] 0 % [facility] Platelets (Bld) [#/Vol] 650 10*3/uL High [facility] RBC (Bld) [#/Vol] 3.4 10*6/uL Low [facility] WBC (Bld) [#/Vol] 14.3 10*3/uL High [facility] CRP [Mass/Vol]on 10-11-2024 Interpretation and review of laboratory results Abnormal [facility] ESR Westergren method (Bld) [Velocity]on 10-11-2024 ESR (Bld) [Velocity] mm/h High 0 - 20 mm/h [facility] Interpretation and review of laboratory results Abnormal [facility] Extra Urine Rhodes Tubeon 09-19 Extra Tube Hold for add-ons. [facility] Ferritinon 10-11-2024 Ferritin [Mass/Vol] 259 ng/mL 20 - 300 ng/mL [facility] Ferritin [Mass/Vol]on 2024 Interpretation and review of laboratory results Normal [facility] Iron and Iron binding capaci ty panelon 10-11-2024 Interpretation and review of laboratory results Abnormal [facility] Iron [Mass/Vol] 24 ug/dL Low 35 - 150 ug/dL [facility] Iron binding capacity [Mass/Vol] 218 ug/dL Low 240 - 445 ug/dL [facility] Iron binding capacity.unsaturated [Mass/Vol] 194 ug/dL 110 - 370 ug/dL [facility] Iron saturation [Mass fraction] 11 % Low 25 - 45 % [facility] Magnesiumon 10-11-2024 Magnesium [Mass/Vol] 2.19 mg/dL 1.60 - 2.40 mg/dL [facility] Magnesium [Mass/Vol]on 10-11 Interpretation and review of laboratory results Normal [facility] No Panel Informationon 10-11 [facility] Renal function 2000 panelon 10-11-2024 Albumin BCP dye [Mass/Vol] 3.3 g/dL Low 3.4 - 5.0 g/dL [facility] Anion gap [Moles/Vol] 12 mmol/L 10 - 2 0 mmol/L [facility] Calcium [Mass/Vol] 9.4 mg/dL 8.6 - 10. 6 mg/dL [facility] Chloride [Moles/Vol] 106 mmol/L 98 - 10 7 mmol/L [facility] CO2 [Moles/Vol] 24 mmol/L 21 - 32 mmol/L [facility] Creatinine [Mass/Vol] 1.6 mg/dL High 0.50 - 1.30 mg/dL [facility] GFR/1.73 sq M.predicted among non-blacks MDRD (S/P/Bld) [Vol rate/Area] 52 mL/min/{1.73_m2} Low - PINF [facility] Glucose [Mass/Vol] 79 mg/dL 74 - 99 mg/[facility] Interpretation and review of laboratory results Abnormal [facility] Phosphate [Mass/Vol] 3.8 mg/dL 2.5 - 4 .9 mg/dL [facility] Potassium [Moles/Vol] 4.1 mmol/L 3.5 - 5.3 mmol/L [facility] Sodium [Moles/Vol] 138 mmol/L 136 - 145 mmol/L [facility] Urea nitrogen [Mass/Vol] 20 mg/dL 6 - 23 mg/d L [facility] Urinalysis complete W Reflex Culture panel (U)on 10-11-2024 Appearance (U) Clear Clear [facility] Bilirubin (U) [Mass/Vol] Negative NEGATIVE [facility] Color (U) Light-Yellow Light-Yellow, Yellow, Dark-Yellow [facility] Glucose Auto test strip (U) [Mass/Vol] Normal Normal mg/dL [facility] Interpretation and review of laboratory results Abnormal [facility] Ketones (U) [Mass/Vol] Negative NEGAT SULEMA mg/dL [facility] Leukocyte esterase Auto test strip Ql (U) Negative NEGATIVE [facility] Nitrite Auto test strip Ql (U) Negative NEGATIVE [facility] pH (U) 7 [pH] 5.0, 5.5, 6.0, 6.5, 7.0, 7.5, 8.0 [facility] Protein (U) [Mass/Vol] Negative NEGAT SULEMA, 10 (TRACE), 20 (TRACE) mg/dL [facility] RBC (U) [#/Vol] Negative NEGATIVE [facility] Specific gravity (U) [Rel density] 1.037 Abnormal 1.005 - 1.035 [facility] Urobilinogen (U) [Mass/Vol] Normal Normal mg/dL [facility] Urine electrolyteson 025 Chloride (U) [Moles/Vol] 123 mmol/L [facility] Chloride/Creatinine Ratio 89 [facility] Creatinine (U) [Mass/Vol] 138.4 mg/dL 20.0 - 370.0 mg/dL [facility] Potassium (U) [Moles/Vol] 50 mmol/L [facility] Potassium/Creatinine (U) [Ratio] 36 Not established mmol/g Creat [facility] Sodium (U) [Moles/Vol] 123 mmol/L [facility] Sodium/Creatinine (U) [Ratio] 89 Not established. [facility] Blood type and Indirect anti body screen panel (Bld)on 10-10-2024 ABO group Nom (Bld) [facility] Blood group antibody screen Ql Negative [facility] D Ag Ql (Bld) Positive [facility] CBC W Auto Differential pane l (Bld)on 10-10-2024 Basophils (Bld) [#/Vol] 0.08 10*3/uL [facility] Basophils/100 WBC (Bld) 0.5 % 0.0 - 2.0 % [facility] Eosinophils (Bld) [#/Vol] 0.25 10*3/uL [facility] Eosinophils/100 WBC (Bld) 1.4 % 0.0 - 6.0 % [facility] Erythrocyte distribution width (RBC) [Ratio] 17.4 % High 11.5 - 14.5 % [facility] Hematocrit (Bld) [Volume fraction] 31.9 % Low 41.0 - 52.0 % [facility] Hemoglobin (Bld) [Mass/Vol] 10.5 g/dL Low 13.5 - 17.5 g/dL [facility] Immature granulocytes (Bld) [#/Vol] 0.4 10*3/uL [facility] Immature granulocytes/100 WBC (Bld) 2.3 % High 0.0 - 0.9 % [facility] Interpretation and review of laboratory results Abnormal [facility] Lymphocytes (Bld) [#/Vol] 2.73 10*3/uL [facility] Lymphocytes/100 WBC (Bld) 15.6 % 13.0 - 44.0 % [facility] MCH (RBC) [Entitic mass] 27.5 pg 26. 0 - 34.0 pg [facility] MCHC (RBC) [Mass/Vol] 32.9 g/dL 32.0 - 36.0 g/dL [facility] MCV (RBC) [Entitic vol] 84 fL 80 - 100 fL [facility] Monocytes (Bld) [#/Vol] 1.6 10*3/uL High [facility] Monocytes/100 WBC (Bld) 9.1 % 2.0 - 10.0 % [facility] Neutrophils (Bld) [#/Vol] 12.45 10*3/uL High [facility] Neutrophils/100 WBC (Bld) 71.1 % 40.0 - 80.0 % [facility] Nucleated RBC/100 WBC (Bld) [Ratio] 0 % [facility] Platelets (Bld) [#/Vol] 721 10*3/uL High [facility] RBC (Bld) [#/Vol] 3.82 10*6/uL Low [facility] WBC (Bld) [#/Vol] 17.5 10*3/uL High [facility] CT Pelvis W contrast Mp UH MMODAL UH MMODAL [facility] Work Phone: Radiology Study observation (narrative) [facility] Work Phone: CT Pelvis W contrast IVOrder ed By: Beronica Valentin on 10-10-2024 [facility] Work Phone: Comprehensive metabolic 2000 panelon 10-10-2024 Albumin BCP dye [Mass/Vol] 3.8 g/dL 3.4 - 5.0 g/dL [facility] ALP [Catalytic activity/Vol] 79 U/L 33 - 120 U/L [facility] ALT With P-5'-P [Catalytic activity/Vol] 14 U/L 10 - 52 U/L [facility] Anion gap [Moles/Vol] 16 mmol/L 10 - 2 0 mmol/L [facility] AST With P-5'-P [Catalytic activity/Vol] 9 U/L 9 - 39 U/L [facility] Bilirubin [Mass/Vol] 0.2 mg/dL 0.0 - 1 .2 mg/dL [facility] Calcium [Mass/Vol] 10.4 mg/dL 8.6 - 10. 6 mg/dL [facility] Chloride [Moles/Vol] 104 mmol/L 98 - 10 7 mmol/L [facility] CO2 [Moles/Vol] 23 mmol/L 21 - 32 mmol/L [facility] Creatinine [Mass/Vol] 1.69 mg/dL High 0.50 - 1.30 mg/dL [facility] GFR/1.73 sq M.predicted among non-blacks MDRD (S/P/Bld) [Vol rate/Area] 49 mL/min/{1.73_m2} Low - PINF [facility] Glucose [Mass/Vol] 105 mg/dL High 74 - 99 mg/dL [facility] Interpretation and review of laboratory results Abnormal [facility] Potassium [Moles/Vol] 4.1 mmol/L 3.5 - 5.3 mmol/L [facility] Protein [Mass/Vol] 7.9 g/dL 6.4 - 8.2 g/dL [facility] Sodium [Moles/Vol] 139 mmol/L 136 - 145 mmol/L [facility] Urea nitrogen [Mass/Vol] 21 mg/dL 6 - 23 mg/d L [facility] Gas panel (BldV)on 5 Anion gap 4 (BldV) [Moles/Vol] 11 mmol/L 10.0 - 25.0 mmol/L [facility] Base excess Calc (BldV) [Moles/Vol] 0.9 mmol/L -2.0 - 3.0 mmol/L [facility] Calcium.ionized (BldV) [Moles/Vol] 1.31 mmol/L 1.10 - 1.33 mmol/L [facility] Chloride (BldV) [Moles/Vol] 106 mmol/L 98 - 107 mmol/L [facility] CO2 (BldV) [Partial pressure] 38 mm[Hg] Low [facility] Glucose [Mass/Vol] 109 mg/dL High 74 - 99 mg/[facility] ([facility]) [Moles/Vol] 25.2 mmol/L 22.0 - 26.0 mmol/L [facility] Hematocrit Est (Bld) [Volume fraction] 31 % Low 41.0 - 52.0 % [facility] Hemoglobin (Bld) [Mass/Vol] 10.2 g/dL Low 13.5 - 17.5 g/dL [facility] Inhaled oxygen concentration 21 % [facility] Interpretation and review of laboratory results Abnormal [facility] Lactate (BldV) [Moles/Vol] 1.2 mmol/L 0.4 - 2.0 mmol/L [facility] Oxygen (BldV) [Partial pressure] 43 mm[Hg] [facility] Oxygen saturation in Venous blood 78 % High 45 - 75 % [facility] Oxyhemoglobin (BldV) [Mass fraction] 74.1 % 45.0 - 75.0 % [facility] pH (BldV) 7.43 [pH] 7.33 - 7.43 pH [facility] Potassium (BldV) [Moles/Vol] 4.7 mmol/L 3.5 - 5.3 mmol/L [facility] Sodium (BldV) [Moles/Vol] 137 mmol/L 136 - 145 mmol/L [facility] PT and aPTT panel Coag (PPP) on 10-10-2024 aPTT Coag (PPP) [Time] 32 s Un [facility] INR Coag (PPP) [Relative time] 1.2 {INR} High 0.9 - 1.1 [facility] Interpretation and review of laboratory results Abnormal [facility] PT Coag (PPP) [Time] 13.8 s High [facility] XR Chest Single viewon 10-10 UH MMODAL UH MMODAL [facility] Work Phone: Radiology Study observation (narrative) [facility] Work Phone: XR Chest Single viewOrdered By: Perry Baires on 10-10-2024 [facility] Work Phone: CBC W Auto Differential pane l (Bld)on 09-17-2024 Basophils (Bld) [#/Vol] 0.06 10*3/uL [facility] Basophils/100 WBC (Bld) 0.5 % 0.0 - 2.0 % [facility] Eosinophils (Bld) [#/Vol] 0.41 10*3/uL [facility] Eosinophils/100 WBC (Bld) 3.3 % 0.0 - 6.0 % [facility] Erythrocyte distribution width (RBC) [Ratio] 17.2 % High 11.5 - 14.5 % [facility] Hematocrit (Bld) [Volume fraction] 27.5 % Low 41.0 - 52.0 % [facility] Hemoglobin (Bld) [Mass/Vol] 8.5 g/dL Low 13.5 - 17.5 g/dL [facility] Immature granulocytes (Bld) [#/Vol] 0.22 10*3/uL [facility] Immature granulocytes/100 WBC (Bld) 1.8 % High 0.0 - 0.9 % [facility] Comment on above: Immature Granulocyte Count (IG) includes promyelocytes, myelocytes and metamyelocytes but does not include bands. Percent differential counts (%) should be interpreted in the context of the absolute cell counts (cells/UL). Interpretation and review of laboratory results Abnormal [facility] Lymphocytes (Bld) [#/Vol] 2.5 10*3/uL [facility] Lymphocytes/100 WBC (Bld) 20.3 % 13.0 - 44.0 % [facility] MCH (RBC) [Entitic mass] 27.2 pg 26. 0 - 34.0 pg [facility] MCHC (RBC) [Mass/Vol] 30.9 g/dL Low 32.0 - 36.0 g/dL [facility] MCV (RBC) [Entitic vol] 88 fL 80 - 100 fL [facility] Monocytes (Bld) [#/Vol] 0.83 10*3/uL [facility] Monocytes/100 WBC (Bld) 6.8 % 2.0 - 10.0 % [facility] Neutrophils (Bld) [#/Vol] 8.27 10*3/uL High [facility] Comment on above: Percent differential counts (%) should be interpreted in the context of the absolute cell counts (cells/uL). Neutrophils/100 WBC (Bld) 67.3 % 40.0 - 80.0 % [facility] Nucleated RBC/100 WBC (Bld) [Ratio] 0 % [facility] Platelets (Bld) [#/Vol] 635 10*3/uL High [facility] RBC (Bld) [#/Vol] 3.13 10*6/uL Low Un[facility] WBC (Bld) [#/Vol] 12.3 10*3/uL [facility] Cryptococcus sp Ag LA Ql (Un sp spec)Ordered By: Makenna Grider on 09-17-2024 Interpretation and review of laboratory results Normal [facility] Fungitell Beta-D Glucan Seru mon 09-17-2024 Fungitell Beta-D Glucan,Serum <31 NINF - 80 pg/mL [facility] Comment on above: Interpretation: The Fungitell assay does not detect certain fungal species such as the genus Cryptococcus (Karli et al. 1991) which produces very low levels of (1-3)-Nwub-O-Aivkmt. The assay also does not detect the Zygomycetes such as Absidia, Mucor and Rhizopus (Jason et al. 1994) which are not known to produce (1-3)-Apmm-U-Ymzlke. In addition, the yeast phase of Blastomyces dermatitidis produces little (1-3)-Xoou-T-Hjqrwk and may not be detected by the [...] characteristics for these modifications were determined by [employer] If sample result is greater than 500 pg/mL, physician may order a titer of the sample. Please contact [employer] if you would like to order a retest of this sample to obtain an actual value. Samples are held for 1 week after initial testing date. Testing Performed at: [facility] [address] [place] [address], [place] [address] [employer] Tender: Perry Bueno, PhD ALONDRA (ABB) CLIA # [id number] FLAG Interpretation: A = Abnormal, H = High, L = Low [facility] Laboratory - Chemistry and C hemistry - challengeon 09-17-2024 Magnesium [Mass/Vol] 2.44 mg/dL High 1.60 - 2.40 mg/dL [facility] Laboratory - Microbiology an d Antimicrobial susceptibilityOrdered By: Makenna Grider on 09-17-2024 Cryptococcus sp Ag LA Ql (Unsp spec) Negative Negative, Invalid [facility] No Panel Informationon 09-17 Aspergillus Galactomanan EIA,S 0.027 NINF - 0.500 [facility] Comment on above: Interpretation: Sydni ents with [...] Aspergillus Galactomannan EIA is a product of [employer] and is FDA approved for in vitro diagnostic use. Testing Performed at: [facility] [address] [place] [address] [employer]: Perry Bueno, PhD ALONDRA ([employer]) CLIA # [id number] FLAG Interpretation: A = Abnormal, H = High, L = Low [facility] Interpretation and review of laboratory results Abnormal [facility] Renal function 2000 panelon 09-17-2024 Albumin BCP dye [Mass/Vol] 3.1 g/dL Low 3.4 - 5.0 g/dL [facility] Anion gap [Moles/Vol] 16 mmol/L 10 - 2 0 mmol/L [facility] Calcium [Mass/Vol] 9.1 mg/dL 8.6 - 10. 6 mg/dL [facility] Chloride [Moles/Vol] 106 mmol/L 98 - 10 7 mmol/L [facility] CO2 [Moles/Vol] 23 mmol/L 21 - 32 mmol/L [facility] Creatinine [Mass/Vol] 1.89 mg/dL High 0.50 - 1.30 mg/dL [facility] GFR/1.73 sq M.predicted among non-blacks MDRD (S/P/Bld) [Vol rate/Area] 42 mL/min/{1.73_m2} Low - PINF [facility] Comment on above: Calculations of vern mated GFR are performed using the 2020 CKD-EPI Study Refit equation without the race variable for the IDMS-Traceable creatinine methods. https://jasn.asnjournals.org/content/early//ASN.555 7341503 Glucose [Mass/Vol] 85 mg/dL 74 - 99 mg/dL [facility] Phosphate [Mass/Vol] 4.2 mg/dL 2.5 - 4 .9 mg/dL [facility] Comment on above: The performance andres acteristics of phosphorus testing in heparinized plasma have been validated by the individual laboratory site where testing is performed. Testing on heparinized plasma is not approved by the FDA; however, such approval is not necessary. Potassium [Moles/Vol] 4.5 mmol/L 3.5 - 5.3 mmol/L [facility] Sodium [Moles/Vol] 140 mmol/L 136 - 145 mmol/L [facility] Urea nitrogen [Mass/Vol] 15 mg/dL 6 - 23 mg/d L [facility] Bacteria identified Cx Nom ( Unsp spec)on 09-16-2024 Beta lactamase organism identified Nom (Isol) Positive [facility] Work Phone: Microscopic observation Gram stain Nom (Unsp spec) No polymorphonuclear leukocytes seen [facility] Work Phone: Microscopic observation Gram stain Nom (Unsp spec) No organisms seen [facility] Work Phone: [facility] Work Phone: Beta lactamase organism identified Nom (Isol) Positive [facility] Work Phone: Interpretation and review of laboratory results Abnormal [facility] Work Phone: Microscopic observation Gram stain Nom (Unsp spec) (4+) Abundant Polymorphonuclear leukocytes Abnormal [facility] Work Phone: Microscopic observation Gram stain Nom (Unsp spec) Positive Abnormal [facility] Work Phone: [facility] Work Phone: Bacteria identified Cx Nom ( Unsp spec)Ordered By: Phil Casas on 09-16-2024 Beta lactamase organism identified Nom (Isol) Positive [facility] Interpretation and review of laboratory results Abnormal [facility] Microscopic observation Gram stain Nom (Unsp spec) (4+) Abundant Polymorphonuclear leukocytes Abnormal [facility] Microscopic observation Gram stain Nom (Unsp spec) Positive Abnormal [facility] CBC W Auto Differential pane l (Bld)on 09-16-2024 Basophils (Bld) [#/Vol] 0.05 10*3/uL [facility] Basophils/100 WBC (Bld) 0.4 % 0.0 - 2.0 % [facility] Eosinophils (Bld) [#/Vol] 0.51 10*3/uL [facility] Eosinophils/100 WBC (Bld) 4.1 % 0.0 - 6.0 % [facility] Erythrocyte distribution width (RBC) [Ratio] 17.1 % High 11.5 - 14.5 % [facility] Hematocrit (Bld) [Volume fraction] 25.8 % Low 41.0 - 52.0 % [facility] Hemoglobin (Bld) [Mass/Vol] 8.2 g/dL Low 13.5 - 17.5 g/dL [facility] Immature granulocytes (Bld) [#/Vol] 0.13 10*3/uL [facility] Immature granulocytes/100 WBC (Bld) 1.1 % High 0.0 - 0.9 % [facility] Comment on above: Immature Granulocyte Count (IG) includes promyelocytes, myelocytes and metamyelocytes but does not include bands. Percent differential counts (%) should be interpreted in the context of the absolute cell counts (cells/UL). Interpretation and review of laboratory results Abnormal [facility] Lymphocytes (Bld) [#/Vol] 2.74 10*3/uL [facility] Lymphocytes/100 WBC (Bld) 22.2 % 13.0 - 44.0 % [facility] MCH (RBC) [Entitic mass] 28.1 pg 26. 0 - 34.0 pg [facility] MCHC (RBC) [Mass/Vol] 31.8 g/dL Low 32.0 - 36.0 g/dL [facility] MCV (RBC) [Entitic vol] 88 fL 80 - 100 fL [facility] Monocytes (Bld) [#/Vol] 0.72 10*3/uL [facility] Monocytes/100 WBC (Bld) 5.8 % 2.0 - 10.0 % [facility] Neutrophils (Bld) [#/Vol] 8.18 10*3/uL High [facility] Comment on above: Percent differential counts (%) should be interpreted in the context of the absolute cell counts (cells/uL). Neutrophils/100 WBC (Bld) 66.4 % 40.0 - 80.0 % [facility] Nucleated RBC/100 WBC (Bld) [Ratio] 0 % [facility] Platelets (Bld) [#/Vol] 597 10*3/uL High [facility] RBC (Bld) [#/Vol] 2.92 10*6/uL Low Unive [facility] WBC (Bld) [#/Vol] 12.3 10*3/uL [facility] Laboratory - Chemistry and C hemistry - challengeon 09-16-2024 Magnesium [Mass/Vol] 2.4 mg/dL 1.60 - 2.40 mg/dL [facility] Laboratory - Drug toxicology on 09-16-2024 Vancomycin [Mass/Vol] 17.6 ug/mL 5.0 - 20.0 ug/mL [facility] Vancomycin [Mass/Vol] 18 ug/mL 5.0 - 20.0 ug/mL [facility] Laboratory - Microbiology an d Antimicrobial susceptibilityon 09-16-2024 Bacteria identified Cx Nom (Unsp spec) (1+) Rare Mixed Skin Microorganisms [facility] Work Phone: Bacteria identified Cx Nom (Unsp spec) (3+) Moderate Mixed Anaerobic Bacteria [facility] Work Phone: Bacteria identified Cx Nom (Unsp spec) (4+) Abundant Mixed Aerobic and Anaerobic Bacteria [facility] Work Phone: Laboratory - Microbiology an d Antimicrobial susceptibilityOrdered By: Phil Casas on 09-16-2024 Bacteria identified Cx Nom (Unsp spec) (2+) Few Mixed Aerobic and Anaerobic Bacteria [facility] Magnesium [Mass/Vol]on 09-16 Interpretation and review of laboratory results Normal [facility] No Panel Informationon 09-16 [facility] Renal function 2000 panelon 09-16-2024 Albumin BCP dye [Mass/Vol] 3.2 g/dL Low 3.4 - 5.0 g/dL [facility] Anion gap [Moles/Vol] 15 mmol/L 10 - 2 0 mmol/L [facility] Calcium [Mass/Vol] 9.3 mg/dL 8.6 - 10. 6 mg/dL [facility] Chloride [Moles/Vol] 104 mmol/L 98 - 10 7 mmol/L [facility] CO2 [Moles/Vol] 26 mmol/L 21 - 32 mmol/L [facility] Creatinine [Mass/Vol] 1.88 mg/dL High 0.50 - 1.30 mg/dL [facility] GFR/1.73 sq M.predicted among non-blacks MDRD (S/P/Bld) [Vol rate/Area] 43 mL/min/{1.73_m2} Low - PINF [facility] Comment on above: Calculations of vern mated GFR are performed using the 2020 CKD-EPI Study Refit equation without the race variable for the IDMS-Traceable creatinine methods. https://jasn.asnjournals.org/content//ASN.175 2554832 Glucose [Mass/Vol] 91 mg/dL 74 - 99 mg/dL [facility] Interpretation and review of laboratory results Abnormal [facility] Phosphate [Mass/Vol] 4 mg/dL 2.5 - 4 .9 mg/dL [facility] Comment on above: The performance andres acteristics of phosphorus testing in heparinized plasma have been validated by the individual laboratory site where testing is performed. Testing on heparinized plasma is not approved by the FDA; however, such approval is not necessary. Potassium [Moles/Vol] 4.6 mmol/L 3.5 - 5.3 mmol/L [facility] Sodium [Moles/Vol] 140 mmol/L 136 - 145 mmol/L [facility] Urea nitrogen [Mass/Vol] 15 mg/dL 6 - 23 mg/d L [facility] Vancomycin [Mass/Vol]on 08-20 Interpretation and review of laboratory results Normal [facility] Vancomycin levels can be monitored according to [...] 30.0-40.0 ug/mL Trough (all ages): 10.0-20.0 ug/mL [facility] Interpretation and review of laboratory results Normal [facility] Vancomycin levels can be monitored according to [...] 30.0-40.0 ug/mL Trough (all ages): 10.0-20.0 ug/mL [facility] CBC W Auto Differential pane l (Bld)on 09-15-2024 Basophils (Bld) [#/Vol] 0.05 10*3/uL [facility] Basophils/100 WBC (Bld) 0.4 % 0.0 - 2.0 % [facility] Eosinophils (Bld) [#/Vol] 0.43 10*3/uL [facility] Eosinophils/100 WBC (Bld) 3.9 % 0.0 - 6.0 % [facility] Erythrocyte distribution width (RBC) [Ratio] 16.7 % High 11.5 - 14.5 % [facility] Hematocrit (Bld) [Volume fraction] 25.2 % Low 41.0 - 52.0 % [facility] Hemoglobin (Bld) [Mass/Vol] 8.1 g/dL Low 13.5 - 17.5 g/dL [facility] Immature granulocytes (Bld) [#/Vol] 0.15 10*3/uL [facility] Immature granulocytes/100 WBC (Bld) 1.3 % High 0.0 - 0.9 % [facility] Comment on above: Immature Granulocyte Count (IG) includes promyelocytes, myelocytes and metamyelocytes but does not include bands. Percent differential counts (%) should be interpreted in the context of the absolute cell counts (cells/UL). Interpretation and review of laboratory results Abnormal [facility] Lymphocytes (Bld) [#/Vol] 2.38 10*3/uL [facility] Lymphocytes/100 WBC (Bld) 21.4 % 13.0 - 44.0 % [facility] MCH (RBC) [Entitic mass] 28.1 pg 26. 0 - 34.0 pg [facility] MCHC (RBC) [Mass/Vol] 32.1 g/dL 32.0 - 36.0 g/dL [facility] MCV (RBC) [Entitic vol] 88 fL 80 - 100 fL [facility] Monocytes (Bld) [#/Vol] 0.69 10*3/uL [facility] Monocytes/100 WBC (Bld) 6.2 % 2.0 - 10.0 % [facility] Neutrophils (Bld) [#/Vol] 7.44 10*3/uL [facility] Comment on above: Percent differential counts (%) should be interpreted in the context of the absolute cell counts (cells/uL). Neutrophils/100 WBC (Bld) 66.8 % 40.0 - 80.0 % [facility] Nucleated RBC/100 WBC (Bld) [Ratio] 0 % [facility] Platelets (Bld) [#/Vol] 526 10*3/uL High [facility] RBC (Bld) [#/Vol] 2.88 10*6/uL Low [facility] WBC (Bld) [#/Vol] 11.1 10*3/uL [facility] Laboratory - Chemistry and C hemistry - challengeon 09-15-2024 Magnesium [Mass/Vol] 2.26 mg/dL 1.60 - 2.40 mg/dL [facility] Magnesium [Mass/Vol]on 09-15 Interpretation and review of laboratory results Normal [facility] No Panel Informationon 09-15 [facility] Renal function 2000 panelon 09-15-2024 Albumin BCP dye [Mass/Vol] 3.1 g/dL Low 3.4 - 5.0 g/dL [facility] Anion gap [Moles/Vol] 15 mmol/L 10 - 2 0 mmol/L [facility] Calcium [Mass/Vol] 8.9 mg/dL 8.6 - 10. 6 mg/dL [facility] Chloride [Moles/Vol] 105 mmol/L 98 - 10 7 mmol/L [facility] CO2 [Moles/Vol] 24 mmol/L 21 - 32 mmol/L [facility] Creatinine [Mass/Vol] 1.77 mg/dL High 0.50 - 1.30 mg/dL [facility] GFR/1.73 sq M.predicted among non-blacks MDRD (S/P/Bld) [Vol rate/Area] 46 mL/min/{1.73_m2} Low - PINF [facility] Comment on above: Calculations of vern mated GFR are performed using the 2020 CKD-EPI Study Refit equation without the race variable for the IDMS-Traceable creatinine methods. https://jasn.asnjournals.org/content/early/ASN.831 2652192 Glucose [Mass/Vol] 122 mg/dL High 74 - 99 mg/dL [facility] Interpretation and review of laboratory results Abnormal [facility] Phosphate [Mass/Vol] 4.3 mg/dL 2.5 - 4 .9 mg/dL [facility] Comment on above: The performance andres acteristics of phosphorus testing in heparinized plasma have been validated by the individual laboratory site where testing is performed. Testing on heparinized plasma is not approved by the FDA; however, such approval is not necessary. Potassium [Moles/Vol] 4 mmol/L 3.5 - 5.3 mmol/L [facility] Sodium [Moles/Vol] 140 mmol/L 136 - 145 mmol/L [facility] Urea nitrogen [Mass/Vol] 18 mg/dL 6 - 23 mg/d L [facility] Albumin BCP dye [Mass/Vol] 3 g/dL Low 3.4 - 5.0 g/dL [facility] Anion gap [Moles/Vol] 13 mmol/L 10 - 2 0 mmol/L [facility] Calcium [Mass/Vol] 9 mg/dL 8.6 - 10. 6 mg/dL [facility] Chloride [Moles/Vol] 106 mmol/L 98 - 10 7 mmol/L [facility] CO2 [Moles/Vol] 24 mmol/L 21 - 32 mmol/L [facility] Creatinine [Mass/Vol] 1.7 mg/dL High 0.50 - 1.30 mg/dL [facility] GFR/1.73 sq M.predicted among non-blacks MDRD (S/P/Bld) [Vol rate/Area] 48 mL/min/{1.73_m2} Low - PINF [facility] Comment on above: Calculations of vern mated GFR are performed using the 2020 CKD-EPI Study Refit equation without the race variable for the IDMS-Traceable creatinine methods. https://jasn.asnjournals.org/content/early//ASN.753 8823193 Glucose [Mass/Vol] 116 mg/dL High 74 - 99 mg/dL [facility] Interpretation and review of laboratory results Abnormal [facility] Phosphate [Mass/Vol] 4.6 mg/dL 2.5 - 4 .9 mg/dL [facility] Comment on above: The performance andres acteristics of phosphorus testing in heparinized plasma have been validated by the individual laboratory site where testing is performed. Testing on heparinized plasma is not approved by the FDA; however, such approval is not necessary. Potassium [Moles/Vol] 4 mmol/L 3.5 - 5.3 mmol/L [facility] Sodium [Moles/Vol] 139 mmol/L 136 - 145 mmol/L [facility] Urea nitrogen [Mass/Vol] 17 mg/dL 6 - 23 mg/d L [facility] Blood type and Indirect anti body screen panel (Bld)on 09-14-2024 ABO group Nom (Bld) [facility] Ql Negative [facility] D Ag Ql (Bld) Positive [facility] Comment on above: 2nd ABO test require d. Order and Collect VERAB [facility] CBC W Auto Differential pane l (Bld)on 09-14-2024 Basophils (Bld) [#/Vol] 0.05 10*3/uL [facility] Basophils/100 WBC (Bld) 0.4 % 0.0 - 2.0 % [facility] Eosinophils (Bld) [#/Vol] 0.47 10*3/uL [facility] Eosinophils/100 WBC (Bld) 3.6 % 0.0 - 6.0 % [facility] Erythrocyte distribution width (RBC) [Ratio] 16.8 % High 11.5 - 14.5 % [facility] Hematocrit (Bld) [Volume fraction] 24.4 % Low 41.0 - 52.0 % [facility] Hemoglobin (Bld) [Mass/Vol] 7.9 g/dL Low 13.5 - 17.5 g/dL [facility] Immature granulocytes (Bld) [#/Vol] 0.07 10*3/uL [facility] Immature granulocytes/100 WBC (Bld) 0.5 % 0.0 - 0.9 % [facility] Comment on above: Immature Granulocyte Count (IG) includes promyelocytes, myelocytes and metamyelocytes but does not include bands. Percent differential counts (%) should be interpreted in the context of the absolute cell counts (cells/UL). Interpretation and review of laboratory results Abnormal [facility] Lymphocytes (Bld) [#/Vol] 1.93 10*3/uL [facility] Lymphocytes/100 WBC (Bld) 14.8 % 13.0 - 44.0 % [facility] MCH (RBC) [Entitic mass] 28.1 pg 26. 0 - 34.0 pg [facility] MCHC (RBC) [Mass/Vol] 32.4 g/dL 32.0 - 36.0 g/dL [facility] MCV (RBC) [Entitic vol] 87 fL 80 - 100 fL [facility] Monocytes (Bld) [#/Vol] 1.3 10*3/uL High [facility] Monocytes/100 WBC (Bld) 10 % 2.0 - 10.0 % [facility] Neutrophils (Bld) [#/Vol] 9.23 10*3/uL High [facility] Comment on above: Percent differential counts (%) should be interpreted in the context of the absolute cell counts (cells/uL). Neutrophils/100 WBC (Bld) 70.7 % 40.0 - 80.0 % [facility] Nucleated RBC/100 WBC (Bld) [Ratio] 0 % [facility] Platelets (Bld) [#/Vol] 528 10*3/uL High [facility] RBC (Bld) [#/Vol] 2.81 10*6/uL Low Unive [facility] WBC (Bld) [#/Vol] 13.1 10*3/uL High [facility] CBC W Auto Differential pane l (Bld)Ordered By: Estephania Tom on 09-14-2024 Basophils (Bld) [#/Vol] 0.04 10*3/uL [facility] Basophils/100 WBC (Bld) 0.3 % 0.0 - 2.0 % [facility] Eosinophils (Bld) [#/Vol] 0.63 10*3/uL [facility] Eosinophils/100 WBC (Bld) 4.7 % 0.0 - 6.0 % [facility] Erythrocyte distribution width (RBC) [Ratio] 16.7 % High 11.5 - 14.5 % [facility] Hematocrit (Bld) [Volume fraction] 24.7 % Low 41.0 - 52.0 % [facility] Hemoglobin (Bld) [Mass/Vol] 7.8 g/dL Low 13.5 - 17.5 g/dL [facility] Immature granulocytes (Bld) [#/Vol] 0.08 10*3/uL [facility] Immature granulocytes/100 WBC (Bld) 0.6 % 0.0 - 0.9 % [facility] Comment on above: Immature Granulocyte Count (IG) includes promyelocytes, myelocytes and metamyelocytes but does not include bands. Percent differential counts (%) should be interpreted in the context of the absolute cell counts (cells/UL). Interpretation and review of laboratory results Abnormal [facility] Lymphocytes (Bld) [#/Vol] 2.35 10*3/uL [facility] Lymphocytes/100 WBC (Bld) 17.5 % 13.0 - 44.0 % [facility] MCH (RBC) [Entitic mass] 27.6 pg 26. 0 - 34.0 pg [facility] MCHC (RBC) [Mass/Vol] 31.6 g/dL Low 32.0 - 36.0 g/dL [facility] MCV (RBC) [Entitic vol] 87 fL 80 - 100 fL [facility] Monocytes (Bld) [#/Vol] 1.18 10*3/uL High [facility] Monocytes/100 WBC (Bld) 8.8 % 2.0 - 10.0 % [facility] Neutrophils (Bld) [#/Vol] 9.13 10*3/uL High [facility] Comment on above: Percent differential counts (%) should be interpreted in the context of the absolute cell counts (cells/uL). Neutrophils/100 WBC (Bld) 68.1 % 40.0 - 80.0 % [facility] Nucleated RBC/100 WBC (Bld) [Ratio] 0 % [facility] Platelets (Bld) [#/Vol] 523 10*3/uL High [facility] RBC (Bld) [#/Vol] 2.83 10*6/uL Low Unive [facility] WBC (Bld) [#/Vol] 13.4 10*3/uL High [facility] Comprehensive metabolic 2000 panelOrdered By: Nabil Bermudez on 09-14-2024 Albumin BCP dye [Mass/Vol] 3 g/dL Low 3.4 - 5.0 g/dL [facility] ALP [Catalytic activity/Vol] 55 U/L 33 - 120 U/L [facility] ALT With P-5'-P [Catalytic activity/Vol] 21 U/L 10 - 52 U/L [facility] Comment on above: Patients treated wit h Sulfasalazine may generate falsely decreased results for ALT. Anion gap [Moles/Vol] 12 mmol/L 10 - 2 0 mmol/L [facility] AST With P-5'-P [Catalytic activity/Vol] 31 U/L 9 - 39 U/L [facility] Bilirubin [Mass/Vol] 0.3 mg/dL 0.0 - 1 .2 mg/dL [facility] Calcium [Mass/Vol] 8.6 mg/dL 8.6 - 10. 6 mg/dL [facility] Chloride [Moles/Vol] 105 mmol/L 98 - 10 7 mmol/L [facility] CO2 [Moles/Vol] 24 mmol/L 21 - 32 mmol/L [facility] Creatinine [Mass/Vol] 1.64 mg/dL High 0.50 - 1.30 mg/dL [facility] GFR/1.73 sq M.predicted among non-blacks MDRD (S/P/Bld) [Vol rate/Area] 50 mL/min/{1.73_m2} Low - PINF [facility] Comment on above: Calculations of vern mated GFR are performed using the 2020 CKD-EPI Study Refit equation without the race variable for the IDMS-Traceable creatinine methods. https://jasn.asnjournals.org/content//ASN.618 1979372 Glucose [Mass/Vol] 137 mg/dL High 74 - 99 mg/dL [facility] Interpretation and review of laboratory results Abnormal [facility] Potassium [Moles/Vol] 4.3 mmol/L 3.5 - 5.3 mmol/L [facility] Protein [Mass/Vol] 6 g/dL Low 6.4 - 8.2 g/dL [facility] Sodium [Moles/Vol] 137 mmol/L 136 - 145 mmol/L [facility] Urea nitrogen [Mass/Vol] 16 mg/dL 6 - 23 mg/d L [facility] ECG 12-LEADon 09-14-2024 ECG 12-LEAD Ventricular Rate 86 Atrial Rate 86 P-R Interval 134 QRS Duration 98 Q-T Interval 360 QTC Calculation(Bazett) 430 P [place] 56 R [place] 62 T [place] 56 QRS Count 14 Q Onset 222 P Onset 155 P Offset 207 T Offset 402 QTC Fredericia 406 Diagnosis Normal sinus rhythm Normal ECG When compared with ECG of 29-FEB-2024 11:08, No significant change was found Confirmed by Bobby Villa ([id number]) on 09/21/2024 5:01:58 PM Normal [facility] FLUAV and FLUBV RNA MERON+prob e Nom (Unsp spec)on 09-14-2024 FLUAV RNA MERON+probe Ql (Resp) Not detected Not Detected [facility] FLUBV RNA MERON+probe Ql (Resp) Not detected Not Detected [facility] This assay is an in vitro diagnostic multiplex nucleic acid amplification test for the detection and discrimination of Influenza A & B from nasopharyngeal specimens, and has been validated for use at [facility]. Negative results do not preclude Influenza A/B infections, and should not be used as the sole basis for diagnosis, treatment, or other management decisions. If Influenza A/B and RSV PCR results are negative, testing for Parainfluenza virus, Adenovirus and Metapneumovirus is routinely performed for [facility] pediatric oncology and intensive care inpatients, and is available on other patients by placing an add-on request. [facility] HbA1c (Bld) [Mass fraction]o n 09-14-2024 Average glucose Estimated from glycated hemoglobin (Bld) [Mass/Vol] 126 mg/dL Not Established [facility] Interpretation and review of laboratory results Abnormal [facility] Diagnosis of Diabetes-Adults Non-Diabetic: < or = 5.6% Increased risk for developing diabetes: 5.7-6.4% Diagnostic of diabetes: > or = 6.5% [facility] - Chemistry and C hemistry - challengeon 09-14-2024 Magnesium [Mass/Vol] 2.14 mg/dL 1.60 - 2.40 mg/dL [facility] Magnesium [Mass/Vol] 2 mg/dL 1.60 - 2.40 mg/dL [facility] Work Phone: Phosphate [Mass/Vol] 3.8 mg/dL 2.5 - 4 .9 mg/dL [facility] Work Phone: Comment on above: The performance andres acteristics of phosphorus testing in heparinized plasma have been validated by the individual laboratory site where testing is performed. Testing on heparinized plasma is not approved by the FDA; however, such approval is not necessary. Laboratory - Drug toxicology on 09-14-2024 Vancomycin [Mass/Vol] 7.3 ug/mL 5.0 - 20.0 ug/mL [facility] Laboratory - Hematology and Cell countson 09-14-2024 HbA1c (Bld) [Mass fraction] 6 % High See comment [facility] Laboratory - Microbiology an d Antimicrobial susceptibilityon 09-14-2024 SARS-CoV-2 (COVID-19) RNA MERON+probe Ql (Resp) Not detected Not Detected [facility] Lipid 1996 panelon 4 Cholesterol [Mass/Vol] 106 mg/dL 0 - 199 mg/dL [facility] Comment on above: Age Desirable Borderline High [...] 128(S5).Adult guidelines reference: NCEP ATPIII Guidelines,ABDIRAHMAN 2001, [id number] Venipuncture immediately after or during the administration of Metamizole may lead to falsely low results. Testing should be performed immediately prior to Metamizole dosing. Cholesterol in HDL [Mass/Vol] 16.4 mg/dL [facility] Comment on above: Age Very Low Low Normal High 0-19 Y < 35 < 40 40-45 ---- 20-24 Y ---- < 40 >45 ---- >24 Y ---- < 40 40-60 >60 Cholesterol in LDL [Mass/Vol] 63 mg/dL NINF - 99 mg/dL [facility] Comment on above: Near Borderline AGE Desirable Optimal High High Very High 0-19 Y 0 - 109 --- 110-129 >/= 130 ---- 20-24 Y 0 - 119 --- 120-159 >/= 160 ---- >24 Y 0 - 99 100-129 130-159 160-189 >/=190 Cholesterol in VLDL [Mass/Vol] 27 mg/dL 0 - 40 mg/dL [facility] Cholesterol.total/Choles terol in HDL [Mass ratio] 6.5 {ratio} [facility] Comment on above: Ref Values Desirable < 3.4 High Risk > 5.0 Non HDL Cholesterol 90 mg/dL 0 - 149 mg/dL [facility] Comment on above: Age Desirable Borderline High High Very High 0-19 Y 0 - 119 120 - 144 >/= 145 >/= 160 20-24 Y 0 - 149 150 - 189 >/= 190 ---- >24 Y 30 mg/dL above LDL Cholesterol goal Triglyceride [Mass/Vol] 134 mg/dL 0 - 149 mg/d L [facility] Comment on above: Age Desirable Border line [...] Interpretation and review of laboratory results Normal [facility] Natriuretic peptide B (Bld) [Mass/Vol] 68 pg/mL 0 - 99 pg/mL [facility] <100 pg/mL - Heart failure unlikely 100-299 [...] contact their local laboratory for further information. [facility] No Panel Informationon 09-14 Interpretation and review of laboratory results Normal [facility] Extra Tube Hold for add-ons. [facility] Comment on above: Auto resulted. [facility] Extra Tube Hold for add-ons. [facility] Comment on above: Auto resulted. [facility] Interpretation and review of laboratory results Normal [facility] Interpretation and review of laboratory results Normal [facility] Work Phone: [facility] Work Phone: Renal function 2000 panelon 09-14-2024 Albumin BCP dye [Mass/Vol] 2.9 g/dL Low 3.4 - 5.0 g/dL [facility] Anion gap [Moles/Vol] 13 mmol/L 10 - 2 0 mmol/L [facility] Calcium [Mass/Vol] 8.9 mg/dL 8.6 - 10. 6 mg/dL [facility] Chloride [Moles/Vol] 106 mmol/L 98 - 10 7 mmol/L [facility] CO2 [Moles/Vol] 25 mmol/L 21 - 32 mmol/L [facility] Creatinine [Mass/Vol] 1.54 mg/dL High 0.50 - 1.30 mg/dL [facility] GFR/1.73 sq M.predicted among non-blacks MDRD (S/P/Bld) [Vol rate/Area] 54 mL/min/{1.73_m2} Low - PINF [facility] Comment on above: Calculations of vern mated GFR are performed using the 2020 CKD-EPI Study Refit equation without the race variable for the IDMS-Traceable creatinine methods. https://jasn.asnjournals.org/content//ASN.437 6692808 Glucose [Mass/Vol] 99 mg/dL 74 - 99 mg/dL [facility] Interpretation and review of laboratory results Abnormal [facility] Phosphate [Mass/Vol] 4.5 mg/dL 2.5 - 4 .9 mg/dL [facility] Comment on above: The performance andres acteristics of phosphorus testing in heparinized plasma have been validated by the individual laboratory site where testing is performed. Testing on heparinized plasma is not approved by the FDA; however, such approval is not necessary. Potassium [Moles/Vol] 4.2 mmol/L 3.5 - 5.3 mmol/L [facility] Sodium [Moles/Vol] 140 mmol/L 136 - 145 mmol/L [facility] Urea nitrogen [Mass/Vol] 14 mg/dL 6 - 23 mg/d L [facility] SARS-CoV-2 (COVID-19) RNA NA A+probe Ql (Resp)on [...] and has been validated for use at [facility]. Negative results do not preclude COVID-19 infections and should not be used as the sole basis for diagnosis, treatment, or other management decisions. [facility] Vancomycin [Mass/Vol]on 08-19 Vancomycin levels can be [...] 30.0-40.0 ug/mL Trough (all ages): 10.0-20.0 ug/mL [facility] XR Chest Single viewon 09-14 1. Right basilar bandlike opacities felt to be atelectatic in nature. Otherwise, no definite focal consolidation or sizable pleural effusion. Signed by: Miah Alves 09/14/2024 8:38 AM Dictation workstation: [id number] Interpreted By: Miah Alves, STUDY: XR CHEST 1 VIEW; 09/13/2024 10:22 pm INDICATION: Signs/Symptoms:New fever. COMPARISON: None. ACCESSION NUMBER(S): [id number] ORDERING CLINICIAN: BALDOMERO POWELL FINDINGS: 2 AP [...] INDICATION: Signs/Symptoms:New fever. COMPARISON: None. ACCESSION NUMBER(S): [id number] ORDERING CLINICIAN: BALDOMERO POWELL FINDINGS: 2 AP [...] Miah Alves 09/14/2024 8:38 AM Dictation workstation: [id number] [facility] Work Phone: XR Chest Single viewOrdered By: Miah Alves on 09-14-2024 [facility] Work Phone: Consulton 09-13-2024 Consult [facility] Wound Care CONSULT Note Kevan La AGE: [...] to follow Recommend to follow up at [facility] Outpatient wound care center after hospital discharge. Any questions or concerns please secure chat "[facility] wound/ostomy". Thank you for the consult! I [...] my own independent evaluation of this patient. [facility] Consult Pharmacy Managed Vancomycin Dosing Service Consult [...] creatinine, and vancomycin levels interfaced automatically to [place] and data has been analyzed and interpreted. [...] DATE: 09/13/24 TIME: 11:05 AM Melva Mcdonald [facility] Clinical Pharmacist Available via Secure Chat [facility] ECG 12-LEADon 09-13-2024 ECG 12-LEAD IMPRESSION: Sinus tachycardia Probable left atrial enlargement RSR' in V1 or V2, probably normal variant Electronically Signed On 09-13-2024 00:56:19 EST by Xiomara Kauffman [facility] ED Nursing Noteon 09-13-2024 ED Nursing Note Pt leaving [facility] ED at this time to go to . Belongings with EMS. Normal [facility] ED Nursing Note Report called to RN. RN informed vancomycin was stopped for transport. Normal [facility] ED Nursing Note [facility] ETA 8pm Normal [facility] ED Nursing Note transfer line called - pt will go to [facility]- 5[address] bed A. Number for report [phone] [facility] ED Nursing Note [facility] Research Nurse called back. Per the Research Physician, the patient does not have to be transferred to [facility]. All that needs to be done is a Biologic Medication" needs prescribed, and the patient can be admitted here. The patient is in an outpatient study. If any further questions, we can contact AMAN Hancock @ [phone]. Normal [facility] ED Nursing Note Patient is in a study at [facility]. He has provided a card for his physician and nurse in the study. I contacted the nurse "Karissa" and left a message @ [phone]. Patient is on the waiting list for and as of 0800 today there are still no rooms available at for this patient. Karissa called back and will contact her MD's over her and will get back with me. Normal [facility] Gas panel (BldV)Ordered By: Bárbara Carty on 09-13-2024 Anion gap 4 (BldV) [Moles/Vol] 10 mmol/L 10.0 - 25.0 mmol/L [facility] Base excess Calc (BldV) [Moles/Vol] 0.1 mmol/L -2.0 - 3.0 mmol/L [facility] Calcium.ionized (BldV) [Moles/Vol] 1.06 mmol/L Low 1.10 - 1.33 mmol/L [facility] Chloride (BldV) [Moles/Vol] 108 mmol/L High 98 - 107 mmol/L [facility] CO2 (BldV) [Partial pressure] 22 mm[Hg] Low [facility] Glucose [Mass/Vol] 149 mg/dL High 74 - 99 mg/dL [facility] HCO3 (Bld) [Moles/Vol] 21.1 mmol/L Low 22.0 - 26.0 mmol/L [facility] Hematocrit Est (Bld) [Volume fraction] 26 % Low 41.0 - 52.0 % [facility] Hemoglobin (Bld) [Mass/Vol] 8.6 g/dL Low 13.5 - 17.5 g/dL [facility] Inhaled oxygen concentration 98 % [facility] Interpretation and review of laboratory results Abnormal [facility] Lactate (BldV) [Moles/Vol] 1.7 mmol/L 0.4 - 2.0 mmol/L [facility] Oxygen (BldV) [Partial pressure] 142 mm[Hg] High [facility] Oxygen saturation in Venous blood 99 % High 45 - 75 % [facility] Oxyhemoglobin (BldV) [Mass fraction] 95.8 % High 45.0 - 75.0 % [facility] pH (BldV) 7.59 [pH] High 7.33 - 7.43 pH [facility] Potassium (BldV) [Moles/Vol] 4.5 mmol/L 3.5 - 5.3 mmol/L [facility] Sodium (BldV) [Moles/Vol] 135 mmol/L Low 136 - 145 mmol/L [facility] No Panel Informationon 09-13 P [place] 54 degrees [facility] DC Interval 126 ms [facility] QRS [place] 49 degrees [facility] QRSD [facility]val [facility] Interval 323 ms [facility] QTC Interval 423 ms [facility] T Wave [place] 53 degrees [facility] Sinus tachycardia Probable left atrial enlargement RSR' in V1 or V2, probably normal variant Electronically Signed On 09-13-2024 00:56:19 EST by Xiomara Kauffman CV Xiomara Urias MD - 09/13/2024 IMPRESSION: Sinus tachycardia Probable left atrial enlargement RSR' in V1 or V2, probably normal variant Electronically Signed On 09-13-2024 00:56:19 EST by Xiomara Kauffman [facility] PT and aPTT panel Coag (PPP) Ordered By: Scarlet Wall on 09-13-2024 aPTT Coag (PPP) [Time] 29 s [facility] INR Coag (PPP) [Relative time] 1.2 {INR} High 0.9 - 1.1 [facility] Interpretation and review of laboratory results Abnormal [facility] PT Coag (PPP) [Time] 13.5 s High [facility] The APTT is no longer used for monitoring Unfractionated Heparin Therapy. For monitoring Heparin Therapy, use the Heparin Assay. [facility] Urinalysis complete W Reflex Culture panel (U)Ordered By: Elham Gomes on 09-13-2024 Appearance (U) Clear Clear [facility] Bilirubin (U) [Mass/Vol] Negative NEGATIVE [facility] Color (U) Light-Yellow Light-Yellow, Yellow, Dark-Yellow [facility] Glucose Auto test strip (U) [Mass/Vol] Normal Normal mg/dL [facility] Interpretation and review of laboratory results Abnormal [facility] Ketones (U) [Mass/Vol] Negative NEGAT SULEMA mg/dL [facility] Leukocyte esterase Auto test strip Ql (U) Negative NEGATIVE [facility] Nitrite Auto test strip Ql (U) Negative NEGATIVE [facility] pH (U) 7.5 [pH] 5.0, 5.5, 6.0, 6.5, 7.0, 7.5, 8.0 [facility] Protein (U) [Mass/Vol] 10 (TRACE) NEGAT SULEMA, 10 (TRACE), 20 (TRACE) mg/dL [facility] RBC (U) [#/Vol] 0.06 (1+) Abnormal NEGATIVE [facility] Specific gravity (U) [Rel density] 1.014 1.005 - 1.035 [facility] Urobilinogen (U) [Mass/Vol] Normal Normal mg/dL [facility] Urinalysis complete W Reflex Culture panel (U)on 09-13-2024 Interpretation and review of laboratory results Abnormal [facility] Mucus Auto (Urine sed) [#/Area] FEW Reference range not established. /LPF [facility] RBC Auto (Urine sed) [#/Area] 6-10 Abnormal NONE, 1-2, 3-5 /HPF [facility] WBC Auto (Urine sed) [#/Area] 1-5 1-5, NONE /HPF [facility] Vital signson 09-13-2024 Heart rate 103 /min bpm Kite XR Chest Single viewon 09-13 Radiology Study observation (narrative) [facility] Work Phone: BASIC METABOLIC PANELon 08-19 Anion gap [Moles/Vol] 12 mmol/L Normal 3-13 [facility] Comment on above: Performed By: #### L AB15, [id number], [id number] ####Heating And Air Conditioning Mechanic: BRIAN NUNEZ ([id number])[facility] CENTERJulisa RY[place]ERT[place] (SBHLAB)[address] Calcium [Mass/Vol] 9.4 mg/dL Normal 8.4-10.2 [facility] Comment on above: Performed By: #### L AB15, [id number], [id number] ####Heating And Air Conditioning Mechanic: BRIAN NUNEZ ([id number])[facility]ENTER[facility] [place] (SBHLAB)[address] Chloride [Moles/Vol] 106 mmol/L Normal 98-107 [facility] Comment on above: Performed By: #### L AB15, [id number], [id number] ####Heating And Air Conditioning Mechanic: BRIAN NUNEZ ([phone])[facility] [place] (SBHLAB)[address] CO2 [Moles/Vol] 22 mmol/L Normal 22-29 [facility] Comment on above: Performed By: #### L AB15, [id number], [id number] ####Heating And Air Conditioning Mechanic: BRIAN NUNEZ ([id number])[facility] [place] (SBHLAB)[address] Creatinine [Mass/Vol] 1.48 mg/dL High 0.72-1.25 [facility] Comment on above: Performed By: #### L AB15, [id number], [id number] ####Heating And Air Conditioning Mechanic: BRIAN NUNEZ ([phone])[facility] [place] (SBHLAB)[address] [place] [address] [place] GLOMERULAR FILTRATION RATE ML/MIN/1.73 SQ M.PREDICTED 56.9 mL/min/1.73m*2 Low >60.0 [facility] Comment on above: Result Comment: Calc ulation based on the Chronic Kidney Disease Epidemiology Collaboration (CKD-EPI) equation refit without adjustment for race Performed By: #### L AB15, [id number], [id number] ####Heating And Air Conditioning Mechanic: BRIAN ENRIQUE ([id number])[facility] (SBHLAB)[address] Glucose [Mass/Vol] 113 mg/dL High 74-100 [facility] Comment on above: Performed By: #### L AB15, [id number], [id number] ####Heating And Air Conditioning Mechanic: BRIAN ALVAREZOLIVERFANNY ([phone])[facility] (SBHLAB)[address] Potassium [Moles/Vol] 4.9 mmol/L Normal 3.5-5.1 [facility] Comment on above: Result Comment: [facility] potassium values may be up to 0.5 mmol/L lower than serum values. Performed By: #### L AB15, [id number], [id number] ####Heating And Air Conditioning Mechanic: BRIAN ALVAREZOLIVERFANNY ([phone])[facility] (SBHLAB)[address] [place] [address] Sodium [Moles/Vol] 140 mmol/L Normal 136-145 [facility] Comment on above: Performed By: #### L AB15, [id number], [id number] ####Heating And Air Conditioning Mechanic: BRIAN NUNEZ ([id number])[facility] [place] [address] Urea nitrogen [Mass/Vol] 18 mg/dL Normal 9-23 [facility] Comment on above: Performed By: #### L AB15, [id number], [id number] ####Heating And Air Conditioning Mechanic: BRIAN ALVAREZOLIVERFANNY ([phone])[facility] (SBHLAB)[address] [place] [address] BLOOD CULTUREon 09-12-2024 Bacteria identified Cx Nom (Bld) BLOOD CULTURE Reference No growth at 5 days ORDER COMMENTS: Blood Collection Site: Left Arm [ S = SUSCEPTIBLE R = RESISTANT I = INTERMEDIATE S-DD = Susceptible-dose dependent NS = Non-susceptible NO = No Interpretation ] Normal [facility] Comment on above: Performed By: #### L [id number], [id number] #### Heating And Air Conditioning Mechanic: JAZLYN JIMENEZ ([id number]) [facility] ([facility]) [address] [place] [address] Bacteria identified Cx Nom (Bld) BLOOD CULTURE Reference No growth at 5 days ORDER COMMENTS: Blood Collection Site: Right Arm [ S = SUSCEPTIBLE R = RESISTANT I = INTERMEDIATE S-DD = Susceptible-dose dependent NS = Non-susceptible NO = No Interpretation ] Normal [facility] Comment on above: Performed By: #### L [id number], [id number] #### Heating And Air Conditioning Mechanic: JAZLYN JIMENEZ ([id number]) [facility] ([facility]) [address] [place] [address] Basic metabolic 1998 panelon 09-12-2024 Anion gap [Moles/Vol] 12 mmol/L 3 - 13 mmol/L [facility] Calcium [Mass/Vol] 9.4 mg/dL 8.4 - 10. 2 mg/dL [facility] Chloride [Moles/Vol] 106 mmol/L 98 - 10 7 mmol/L [facility] CO2 [Moles/Vol] 22 mmol/L 22 - 29 mmol/L [facility] Creatinine [Mass/Vol] 1.48 mg/dL High 0.72 - 1.25 mg/dL [facility] GFR/1.73 sq M.predicted (S/P/Bld) [Vol rate/Area] 56.9 mL/min Low - PINF [facility] Comment on above: Calculation based on the Chronic Kidney Disease Epidemiology Collaboration (CKD-EPI) equation refit without adjustment for race Glucose [Mass/Vol] 113 mg/dL High 74 - 100 mg/dL [facility] Interpretation and review of laboratory results Abnormal [facility] Potassium [Moles/Vol] 4.9 mmol/L 3.5 - 5.1 mmol/L [facility] Comment on above: Plasma potassium jeri ues may be up to 0.5 mmol/L lower than serum values. Sodium [Moles/Vol] 140 mmol/L 136 - 145 mmol/L [facility] Urea nitrogen [Mass/Vol] 18 mg/dL 9 - 23 mg/d L [facility] CBC W Auto Differential pane l (Bld)on 09-12-2024 Basophils (Bld) [#/Vol] 0 10*3/uL 0.0 - 0.2 10*3/uL [facility] Basophils/100 WBC (Bld) 0.2 % 0.0 - 2.0 % [facility] Eosinophils (Bld) [#/Vol] 0.4 10*3/uL 0.0 - 0.5 10*3/uL [facility] Eosinophils/100 WBC (Bld) 2 % 0.0 - 6.0 % [facility] Erythrocyte distribution width (RBC) [Ratio] 17 % High 11.5 - 15.0 % [facility] Hematocrit (Bld) [Volume fraction] 28.1 % Low 40.0 - 52.0 % [facility] Hemoglobin (Bld) [Mass/Vol] 8.9 g/dL Low 13.0 - 18.0 g/dL [facility] Immature granulocytes (Bld) [#/Vol] 0.1 10*3/uL High NINF - 0.1 10*3/uL [facility] Immature granulocytes/100 WBC (Bld) 0.7 % 0.0 - 2.0 % [facility] Interpretation and review of laboratory results Abnormal [facility] Lymphocytes (Bld) [#/Vol] 2.1 10*3/uL 1.0 - 4.3 10*3/uL [facility] Lymphocytes/100 WBC (Bld) 12 % Low 15.0 - 45.0 % [facility] MCH (RBC) [Entitic mass] 27.9 pg 26. 0 - 34.0 pg [facility] MCHC (RBC) [Mass/Vol] 31.7 % 30.5 - 36.0 % [facility] MCV (RBC) [Entitic vol] 88.1 fL 77.0 - 99.0 fL [facility] Monocytes (Bld) [#/Vol] 1.5 10*3/uL High 0.0 - 0.9 10*3/uL [facility] Monocytes/100 WBC (Bld) 8.1 % 5.0 - 13.0 % [facility] Neutrophils (Bld) [#/Vol] 13.7 10*3/uL High 1.8 - 7.5 10*3/uL [facility] Neutrophils/100 WBC (Bld) 77 % 38.0 - 82.0 % [facility] Nucleated RBC/100 WBC (Bld) [Ratio] 0 % [facility] Platelet mean volume (Bld) [Entitic vol] 8.6 fL Low 9.0 - 12.7 fL [facility] Platelets (Bld) [#/Vol] 568 10*3/uL High 140 - 440 10*3/uL [facility] RBC (Bld) [#/Vol] 3.19 10*6/uL Low 4.40 - 5.9 0 10*6/uL [facility] WBC (Bld) [#/Vol] 17.8 10*3/uL High 3.6 - 10.7 10*3/uL [facility] CBC WITH AUTO DIFFERENTIALon 09-12-2024 Basophils (Bld) [#/Vol] 0.0 10*3/uL Normal 0.0-0.2 [facility] Comment on above: Performed By: #### L [id number] ####Heating And Air Conditioning Mechanic: BRIAN NUNEZ ([phone])[facility] ([facility])[address] [place] [address] Basophils/100 WBC (Bld) 0.2 % Normal 0.0-2.0 [facility] Comment on above: Performed By: #### L [id number] ####Heating And Air Conditioning Mechanic: BRIAN NUNEZ ([id number])[facility] (SBAB)[address] [place] [address] Eosinophils (Bld) [#/Vol] 0.4 10*3/uL Normal 0.0-0.5 [facility] Comment on above: Performed By: #### L [id number] ####Heating And Air Conditioning Mechanic: BRIAN NUNEZ ([id number])[facility] [place] (SBHLAB)[address] [place] [address] Eosinophils/100 WBC (Bld) 2.0 % Normal 0.0-6.0 [facility] Comment on above: Performed By: #### L [id number] ####Heating And Air Conditioning Mechanic: BRIAN NUNEZ ([id number])[facility] (SBHLAB)[address] [place] [address] Erythrocyte distribution width (RBC) [Ratio] 17.0 % High 11.5-15.0 [facility] Comment on above: Performed By: #### L [id number] ####Heating And Air Conditioning Mechanic: BRIAN NUNEZ ([id number])[facility] [place] ([facility])[address] [place] [address] Hematocrit (Bld) [Volume fraction] 28.1 % Low 40.0-52.0 [facility] Comment on above: Performed By: #### L [id number] ####Heating And Air Conditioning Mechanic: BRIAN GAYFANNY ([id number])[facility] ([facility] [place] [address] Hemoglobin (Bld) [Mass/Vol] 8.9 g/dL Low 13.0-18.0 [facility] Comment on above: Performed By: #### L [id number] ####Heating And Air Conditioning Mechanic: BRIAN GAYFANNY ([phone])[facility] ([facility])[address] [place] [address] IMMATURE GRANS % 0.7 % Normal 0.0-2.0 [facility] Comment on above: Performed By: #### L [id number] ####Heating And Air Conditioning Mechanic: BRIAN NUNEZ ([id number])[facility] ([facility])[address] [place] [address] IMMATURE GRANS ABSOLUTE 0.1 10*3/uL High <0.1 [facility] Comment on above: Performed By: #### L [id number] ####Heating And Air Conditioning Mechanic: BRIAN NUNEZ ([id number])[facility] [place] [address] Lymphocytes (Bld) [#/Vol] 2.1 10*3/uL Normal 1.0-4.3 [facility] Comment on above: Performed By: #### L [id number] ####Heating And Air Conditioning Mechanic: BRIAN GAYFANNY ([phone])[facility] ([facility])[address] [place] [address] Lymphocytes/100 WBC (Bld) 12.0 % Low 15.0-45.0 [facility] Comment on above: Performed By: #### L [id number] ####Heating And Air Conditioning Mechanic: BRIAN ALVAREZBharathiFANNY ([id number])[place] ROJASA[place] (SBHLAB)[address] MCH (RBC) [Entitic mass] 27.9 pg Normal 26.0-34.0 [facility] Comment on above: Performed By: #### L [id number] ####Heating And Air Conditioning Mechanic: BRIAN ENRIQUE ([id number])[facility] CENTERJulisa RYANL[facility]ERN (SBHLAB)[address] MCHC 31.7 % Normal 30.5-36.0 [facility] Comment on above: Performed By: #### L [id number] ####Heating And Air Conditioning Mechanic: BRIAN ENRIQUE ([id number])[facility] CENTERJulisa ROJASN (SBHLAB)[address] [place] [address] MCV (RBC) [Entitic vol] 88.1 fL Normal 77.0-99.0 S [facility] Comment on above: Performed By: #### L [id number] ####Heating And Air Conditioning Mechanic: BRIAN ALVAREZBharathiFANNY ([phone])[facility] CENTERJulisa BARBMICHAELN (SBHLAB)[address] Monocytes (Bld) [#/Vol] 1.5 10*3/uL High 0.0-0.9 [facility] Comment on above: Performed By: #### L [id number] ####Heating And Air Conditioning Mechanic: RBIAN GAYFANNY ([id number])[facility] CENTERJulisa [place] (SBHLAB)[address] [place] [address] [place] Monocytes/100 WBC (Bld) 8.1 % Normal 5.0-13.0 S [facility] Comment on above: Performed By: #### L [id number] ####Heating And Air Conditioning Mechanic: BRIAN GAYFANNY ([phone])[facility] CENTERJulisa BARBMICHAELN (SBHLAB)[address] NEUTROPHILS ABSOLUTE 13.7 10*3/uL High 1.8-7.5 [facility] Comment on above: Performed By: #### L [id number] ####Heating And Air Conditioning Mechanic: BRIAN NUNEZ ([id number])[facility] [place] (SBHLAB)[address] Neutrophils/100 WBC (Bld) 77.0 % Normal 38.0-82.0 [facility] Comment on above: Performed By: #### L [id number] ####Heating And Air Conditioning Mechanic: BRIAN NUNEZ ([id number])[facility] [place] (SBHLAB)[address] NRBC 0.0 /100 WBCs Normal 0.0-2.0 [facility] Comment on above: Performed By: #### L [id number] ####Heating And Air Conditioning Mechanic: BRIAN NUNEZ ([id number])[facility] [place] (SBHLAB)[address] Platelet mean volume (Bld) [Entitic vol] 8.6 fL Low 9.0-12.7 [facility] Comment on above: Performed By: #### L [id number] ####Heating And Air Conditioning Mechanic: BRIAN NUNEZ ([id number])[facility] [place] (SBHLAB)[address] [place] [address] [place] Platelets (Bld) [#/Vol] 568 10*3/uL High 140-440 [facility] Comment on above: Performed By: #### L [id number] ####Heating And Air Conditioning Mechanic: BRIAN NUNEZ ([id number])[facility] [place] (SBHLAB)[address] [place] [address] [place] RBC (Bld) [#/Vol] 3.19 10*6/uL Low 4.40-5.90 [facility] Comment on above: Performed By: #### L [id number] ####Heating And Air Conditioning Mechanic: BRIAN NUNEZ ([id number])[facility] [place] (SBHLAB)[address] [place] [address] [place] WBC (Bld) [#/Vol] 17.8 10*3/uL High 3.6-10.7 [facility] Comment on above: Performed By: #### L [id number] ####Heating And Air Conditioning Mechanic: BRIAN NUNEZ ([id number])[facility] MED[facility] CENTERJulisa BISWAS (SBHLAB)[address] [place] [address] CT ABDOMEN PELVIS W CONTRAST on 09-12-2024 CT ABDOMEN PELVIS W CONTRAST Patient Name: KEVAN [place] [facility] 1975 [id number] Exam Date/Time: 09/12/2024 21:13 Procedure: CT ABDOMEN [...] abscess or signs of necrotizing infection. Normal [facility] CT Abdomen and Pelvis W cont rast [...] DO Electronically Signed Date/Time: 09/12/2024 9:48 PM [facility] Patient Name: KEVAN [place] : [...] No cortical irregularity of the left femur. [facility] Angelito Raisa Cheryl DO - 09/12/2024 Patient Name: KEVAN LA [...] Electronically Signed Date/Time: 09/12/2024 9:48 PM EST [facility] Radiology Study observation (narrative) [facility] CT Abdomen and Pelvis W cont rast IVOrdered By: Raisa Eaton on 09-12-2024 [facility] Work Phone: CULTURE ANAEROBICon 09-12-20 24 CULTURE ANAEROBIC ANAEROBIC CULTURE (A) Reference BACTEROIDES FRAGILIS GROUP Moderate Bacteroides fragilis group (A) [ S = SUSCEPTIBLE R = RESISTANT I = INTERMEDIATE S-DD = Susceptible-dose dependent NS = Non-susceptible NO = No Interpretation ] Normal [facility] Comment on above: Performed By: #### L [id number], [id number] #### Heating And Air Conditioning Mechanic: JAZLYN JIMENEZ ([id number]) [facility] ([address] CULTURE, AEROBIC BACTERIA WI TH GRAM STAINon [...] Non-susceptible NO = No Interpretation ] Normal [facility] Comment on above: Performed By: #### L [id number], [id number] #### Heating And Air Conditioning Mechanic: JAZLYN JIMENEZ ([id number]) [facility] ([facility]) [address] [place] [address] ED Provider Noteon ED Provider Note [facility] ED EMERGENCY DEPARTMENT ENCOUNTER Pt Name: Kevan [...] [09/12/241947] Temp Heart Rate Resp BP 38 ?C [...] Procedure Abnormality Status --------- ------ Culture, Aerobic Bacteri...[[id number] ] In process Anaerobic culture[[id number]] In process Please view results for these [...] 1,000 mL (0 mL IntraVENous Stopped 09/12/242158) piperacillin-tazobac daley (Zosyn) 4,500 mg in sodium chloride 0.9 % 100 mL IVPB Mini-Bag Plus (0 mg IntraVENou (more content not included)... Normal [facility] HIGH SENSITIVITY TROPONIN, S ERIAL BASELINEon 09-12-2024 TROPONIN HIGH SENSITIVITY BASELINE 4 ng/L Normal <=35 [facility] Comment on above: Performed By: #### L AB15, [id number], [id number] ####Heating And Air Conditioning Mechanic: BRIAN NUNEZ ([id number])[facility] (SBHLAB)[address] [place] [address] LACTIC ACID WITH REFLEXon Lactate [Moles/Vol] 2.0 mmol/L Normal 0.5-2.2 [facility] Comment on above: Performed By: #### L [id number] ####Heating And Air Conditioning Mechanic: BRIAN NUNEZ ([id number])[facility] (SBHLAB)[address] [place] [address] Laboratory - Chemistry and C hemistry - challengeon 09-12-2024 Lactate [Moles/Vol] 2 mmol/L 0.5 - 2. 2 mmol/L [facility] NT PRO BNPon 09-12-2024 Natriuretic peptide B (Bld) [Mass/Vol] 589 pg/mL High <125 [facility] Comment on above: Performed By: #### L AB15, [id number], [id number] ####Heating And Air Conditioning Mechanic: BRIAN NUNEZ ([id number])[facility] (SBHLAB)[address] [place] [address] Natriuretic peptide B [Mass/ Vol]on 09-12-2024 Interpretation and review of laboratory results Abnormal [facility] Natriuretic peptide B (Bld) [Mass/Vol] 589 pg/mL High NINF - 125 pg/mL [facility] No Panel Informationon 09-12 Interpretation and review of laboratory results Normal [facility] Troponin HS, Serial Baseline 4 ng/L NINF - 35 ng/L [facility] Interpretation and review of laboratory results Normal [facility] Progress Noteon 09-12-2024 Progress Note Culture reviewed. Awaiting sensitivity results. Patient was seen at [place] given IV antibiotics broad-spectrum coverage and transferred to [facility] for further management Normal [facility] XR Chest Single viewon 09-12 1. No acute findings. Report Dictated on Electronically Signed By: Elias Hutson MD Electronically Signed Date/Time: 09/12/2024 8:[address] [facility] Patient Name: KEVAN [place] : 1975 [id number] Exam Date/Time: 09/12/2024 20:17 Procedure: XR CHEST [...] or apparent pneumothorax. Bony thorax grossly unremarkable. [facility] Elias Hutson MD - 09/12/2024 Patient Name: KEVAN [place] : 1975 [facility]#: [id number] Exam Date/Time: 09/12/2024 20:17 Procedure: XR CHEST [...] Electronically Signed Date/Time: 09/12/2024 8:28 PM EST [facility] Radiology Study observation (narrative) [facility] XR Chest Single viewOrdered By: Elias Hutson on 09-12-2024 [facility] Work Phone: ECG 12-LEADon 02-29-2024 ECG 12-LEAD Ventricular Rate 60 Atrial Rate 60 P-R Interval 146 QRS Duration 92 Q-T Interval 410 QTC Calculation(Bazett) 410 P Macon 55 R Macon 41 T Macon 55 QRS Count 10 Q Onset 212 P Onset 139 P Offset 195 T Offset 417 QTC Fredericia 410 Diagnosis Normal sinus rhythm Normal ECG When compared with ECG of 23-NOV-2023 11:14, No significant change was found Confirmed by Eric Mccall ([id number]) on 03/01/2024 4:34:58 PM Normal [facility] ECG 12 lead (Ancillary Perfo rmed)Ordered By: Beto Cassa on 11-24-2023 Atrial Rate 58 BPM [facility] Work Phone: [phone] P Macon 59 degrees [facility] Work Phone: P Offset 198 ms [facility] Work Phone: P Onset 141 ms [facility] Work Phone: DC Interval 150 ms [facility] Work Phone: Q Onset 216 ms [facility] Work Phone: [phone] QRS Count 10 beats [facility] Work Phone: [phone] QRS Duration 98 ms [facility] Work Phone: [phone] QT Interval 402 ms [facility] Work Phone: [phone] QTC Calculation(Bazett) 394 ms U [facility] Work Phone: [phone] QTC Fredericia 397 ms [facility] Work Phone: [phone] R Macon 54 degrees [facility] Work Phone: [phone] T Macon 65 degrees [facility] Work Phone: [phone] T Offset 417 ms [facility] Work Phone: [phone] Ventricular Rate 58 BPM [facility] Work Phone: [phone] [facility] Work Phone: [phone] ECG 12 lead (Ancillary Perfo rmed)on 11-24-2023 Sinus bradycardia Otherwise normal ECG No previous ECGs available Confirmed by Beto Casas ([id number]) on 11/24/2023 1:09:15 PM Beto William MD - 11/24/2023 Sinus bradycardia Otherwise normal ECG No previous ECGs available Confirmed by Beto Casas ([id number]) on 11/24/2023 1:09:15 PM [facility] Work Phone: QUANTIFERON - PLUS RHODES TUBE on 04-10-2023 Gamma interferon background IA Qn (Bld) 0.02 IU/mL blabfeed a [facility] [employer] QUANTIFERON - PLUS GREEN TUB Yunior 04-10-2023 TB1 Antigen Result 0.05 IU/mL [employer] QUANTIFERON - PLUS PURPLE TU BEon 04-10-2023 M. tuberculosis stim IFN-g by CD4+ CD8+ T-cells corrected for background Qn (Bld) 0.01 IU/mL [facility] M. tuberculosis stim IFN-g by CD4+ T-cells corrected for background Qn (Bld) 0.03 [IU]/mL IU/mL [facility] M. tuberculosis tuberculin stim IFN-g Ql (Bld) Negative Negative [facility] Mitogen Result IU/mL [facility] th Mitogen stimulated gamma interferon corrected for background Qn (Bld) IU/mL [facility] Interferon gamma release is measured for specimens [...] NTM (M. k[place]ii, M. szulgai,or M. marinum). [facility] QUANTIFERON - PLUS YELLOW TU BEon 04-10-2023 TB2 Antigen Value 0.03 IU/mL [facility] Bilirubin.indirect [Mass/Vol ]on 04-08-2023 Bilirubin.conjugated [Mass/Vol] 0.0 mg/dL 0.0 - 0.3 mg/dL [facility] Interpretation and review of laboratory results Normal [facility] CBC W Auto Differential pane l (Bld)Ordered By: Smitha Mcknight on 04-08-2023 Basophils (Bld) [#/Vol] 0.1 10*3/uL 0.0 - 0.2 10*3/uL [facility] Basophils/100 WBC (Bld) 0.7 % 0.0 - 2.0 % [facility] Eosinophils (Bld) [#/Vol] 0.3 10*3/uL 0.0 - 0.5 10*3/uL [facility] Eosinophils/100 WBC (Bld) 2.6 % 1.0 - 6.0 % [facility] Erythrocyte distribution width (RBC) [Ratio] 15.0 % High 11.5 - 14.5 % [facility] Hematocrit (Bld) [Volume fraction] 38.9 % Low 40.0 - 52.0 % [facility] Hemoglobin (Bld) [Mass/Vol] 12.8 g/dL Low 13.0 - 18.0 g/dL [facility] Immature granulocytes (Bld) [#/Vol] 0.0 10*3/uL NINF - 0.0 10*3/uL [facility] Immature granulocytes/100 WBC (Bld) 0.3 % High NINF - 0.0 % [facility] Interpretation and review of laboratory results Abnormal [facility] Lymphocytes (Bld) [#/Vol] 3.0 10*3/uL 1.0 - 4.3 10*3/uL [facility] Lymphocytes/100 WBC (Bld) 23.6 % 20.0 - 40.0 % [facility] MCH (RBC) [Entitic mass] 28.7 pg 26. 0 - 34.0 pg [facility] MCHC (RBC) [Mass/Vol] 32.9 % 32.0 - 36.0 % [facility] MCV (RBC) [Entitic vol] 87.2 fL 80.0 - 98.0 fL [facility] Monocytes (Bld) [#/Vol] 1.2 10*3/uL High 0.0 - 0.8 10*3/uL [facility] Monocytes/100 WBC (Bld) 9.1 % 2.0 - 10.0 % [facility] Neutrophils (Bld) [#/Vol] 8.1 10*3/uL High 1.8 - 7.0 10*3/uL [facility] Neutrophils/100 WBC (Bld) 63.7 % 40.0 - 80.0 % [facility] Platelet mean volume (Bld) [Entitic vol] 8.7 fL 7.4 - 12.4 fL [facility] Comment on above: MPV is a calculated measurement using platelet volume ratio Platelets (Bld) [#/Vol] 415 10*3/uL 140 - 440 10*3/uL [facility] RBC (Bld) [#/Vol] 4.46 10*6/uL 4.40 - 5.9 0 10*6/uL [facility] WBC (Bld) [#/Vol] 12.7 10*3/uL High 3.6 - 10.7 10*3/uL [facility] Comprehensive metabolic 1998 panelon 04-08-2023 Albumin [Mass/Vol] 3.9 g/dL 3.5 - 5.0 g/dL [facility] ALP [Catalytic activity/Vol] 95 U/L 38 - 126 U/L [facility] ALT [Catalytic activity/Vol] 16 U/L 0 - 49 U/L [facility] Anion gap [Moles/Vol] 5 mmol/L 3 - 13 mmol/L [facility] AST [Catalytic activity/Vol] 24 U/L 15 - 46 U/L [facility] Bilirubin [Mass/Vol] 0.3 mg/dL 0.2 - 1 .3 mg/dL [facility] Calcium [Mass/Vol] 8.8 mg/dL 8.4 - 10. 4 mg/dL [facility] Chloride [Moles/Vol] 108 mmol/L High 98 - 10 7 mmol/L [facility] CO2 [Moles/Vol] 28 mmol/L 22 - 30 mmol/L [facility] Creatinine [Mass/Vol] 1.20 mg/dL 0.66 - 1.25 mg/dL [facility] GFR/1.73 sq M.predicted MDRD (S/P/Bld) [Vol rate/Area] 74.1 mL/min/{1.73_m2} - PINF [facility] Comment on above: Calculation based on the Chronic Kidney Disease Epidemiology Collaboration (CKD-EPI) equation refit without adjustment for race Glucose [Mass/Vol] 110 mg/dL High 70 - 100 mg/dL [facility] Interpretation and review of laboratory results Abnormal [facility] Potassium [Moles/Vol] 4.3 mmol/L 3.5 - 5.1 mmol/L [facility] Protein [Mass/Vol] 8.3 g/dL High 6.3 - 8.2 g/dL [facility] Sodium [Moles/Vol] 140 mmol/L 135 - 145 mmol/L [facility] Urea nitrogen [Mass/Vol] 14 mg/dL 9 - 20 mg/d L [facility] No Panel Informationon 04-08 [facility] Vital Signs Date Time Vital Sign Value Performing Clinician Facility 03-10-2025 14:54-0400 Body temperature 96.8 [degF] Astrid Riosnelly [employer] Work Phone: [facility] 03-10-2025 14:54-0400 Diastolic blood pressure 51 mm[Hg] Astrid Riosnelly [employer] Work Phone: [facility] 03-10-2025 14:54-0400 Heart rate 47 /min Astrid Shirley [employer] Work Phone: [facility] 03-10-2025 14:54-0400 Respiratory rate 14 /min Astrid Shirley [employer] Work Phone: [facility] 03-10-2025 14:54-0400 SaO2% (BldA) [Mass fraction] 100 % Astrid Riosnelly [employer] Work Phone: [facility] 03-10-2025 14:54-0400 Systolic blood pressure 93 mm[Hg] Astrid Hawley [employer] Work Phone: [facility] 03-03-2025 15:38-0400 Diastolic blood pressure 55 mm[Hg] Dean Jalloh MD Work Phone: [facility] 03-03-2025 15:38-0400 Heart rate 55 /min Dean Jalloh MD Work Phone: [facility] 03-03-2025 15:38-0400 Respiratory rate 16 /min Dean Jalloh MD Work Phone: [facility] 03-03-2025 15:38-0400 SaO2% (BldA) [Mass fraction] 98 % Dean Jalloh MD Work Phone: [facility] 03-03-2025 15:38-0400 Systolic blood pressure 98 mm[Hg] Dean Jalloh MD Work Phone: [facility] 12-24-2024 09:31-0400 Body temperature 98.01 [degF] [facility] 12-24-2024 09:31-0400 Diastolic blood pressure 45 mm[Hg] jgon Martina DO Work Phone: [facility] 12-24-2024 09:31-0400 Heart rate 83 /min Taneshagon Martina DO Work Phone: [facility] 12-24-2024 09:31-0400 Respiratory rate 15 /min Taneshagon Martina DO Work Phone: [facility] 12-24-2024 09:31-0400 SaO2% (BldA) [Mass fraction] 97 % Levi Tobiasya DO Work Phone: [facility] 12-24-2024 09:31-0400 Systolic blood pressure 95 mm[Hg] Manoharn Martina DO Work Phone: [facility] 12-23-2024 19:23-0400 Body height 200.7 cm Levi Martina DO Work Phone: [facility] 12-23-2024 19:23-0400 Body mass index (BMI) [Ratio] 22.34 kg/m2 Manoharn Martina DO Work Phone: [facility] 12-23-2024 19:23-0400 Body weight 90 kg Levi Tobiasya DO Work Phone: [facility] 12-20-2024 10:55-0400 Body height 196.7 cm Sreedhar Jiang MD Work Phone: [facility] 12-20-2024 10:55-0400 Body mass index (BMI) [Ratio] 23.31 kg/m2 Sreedhar Jiang MD Work Phone: [facility] 12-20-2024 10:55-0400 Body temperature 97.9 [degF] Sreedhar Jiang MD Work Phone: [facility] 12-20-2024 10:55-0400 Body weight 90.2 kg Sreedhar Jiang MD Work Phone: [facility] 12-20-2024 10:55-0400 Diastolic blood pressure 57 mm[Hg] Sreedhar Jiang MD Work Phone: [facility] 12-20-2024 10:55-0400 Heart rate 74 /min Sreedhar Jiang MD Work Phone: [facility] 12-20-2024 10:55-0400 Respiratory rate 16 /min Sreedhar Jiang MD Work Phone: [facility] 12-20-2024 10:55-0400 SaO2% (BldA) [Mass fraction] 96 % Sreedhar Jiang MD Work Phone: [facility] 12-20-2024 10:55-0400 Systolic blood pressure 99 mm[Hg] Sreedhar Jiang MD Work Phone: [facility] 12-19-2024 07:29-0400 Body temperature 97 [degF] Mine Nunez MD Work Phone: [facility] 12-19-2024 07:29-0400 Diastolic blood pressure 62 mm[Hg] Mine Nunez MD Work Phone: [facility] 12-19-2024 07:29-0400 Heart rate 83 /min Mine Nunez MD Work Phone: [facility] 12-19-2024 07:29-0400 Respiratory rate 16 /min Mine Nunez MD Work Phone: [facility] 12-19-2024 07:29-0400 SaO2% (BldA) [Mass fraction] 96 % Mine Nunez MD Work Phone: [facility] 12-19-2024 07:29-0400 Systolic blood pressure 102 mm[Hg] Mine Nunez MD Work Phone: [facility] 12-07-2024 16:58-0400 Body height 200.6 cm Mine Nunez MD Work Phone: [facility] 12-07-2024 16:58-0400 Body mass index (BMI) [Ratio] 22.22 kg/m2 Mine Nunez MD Work Phone: [facility] 12-07-2024 16:58-0400 Body weight 89.4 kg Mine Nunez MD Work Phone: [facility] 12-07-2024 13:22-0400 Body temperature 98.71 [degF] Fer Hollins MD Work Phone: [facility] 12-07-2024 13:22-0400 Diastolic blood pressure 57 mm[Hg] Fer Hollins MD Work Phone: [facility] 12-07-2024 13:22-0400 Heart rate 60 /min Fer Hollins MD Work Phone: [facility] 12-07-2024 13:22-0400 Respiratory rate 16 /min Fer Hollins MD Work Phone: [facility] 12-07-2024 13:22-0400 SaO2% (BldA) [Mass fraction] 100 % Fer Hollins MD Work Phone: [facility] 12-07-2024 13:22-0400 Systolic blood pressure 89 mm[Hg] Fer Hollins MD Work Phone: [facility] 12-06-2024 11:09-0400 Body height 200.7 cm Fer Hollins MD Work Phone: [facility] 12-06-2024 11:09-0400 Body mass index (BMI) [Ratio] 22.19 kg/m2 Fer Hollins MD Work Phone: [facility] 12-06-2024 11:09-0400 Body weight 89.36 kg Fer Hollins MD Work Phone: [facility] 11-27-2024 13:43-0400 Body temperature 97.7 [degF] Baldomero Powell MD Work Phone: [facility] 11-27-2024 13:43-0400 Diastolic blood pressure 61 mm[Hg] Baldomero Powell MD Work Phone: [facility] 11-27-2024 13:43-0400 Heart rate 74 /min Baldomero Powell MD Work Phone: [facility] 11-27-2024 13:43-0400 SaO2% (BldA) [Mass fraction] 98 % Baldomero Powell MD Work Phone: [facility] 11-27-2024 13:43-0400 Systolic blood pressure 105 mm[Hg] Baldomero Powell MD Work Phone: [facility] 11-27-2024 05:19-0400 Respiratory rate 17 /min Baldomero Powell MD Work Phone: [facility] 11-13-2024 17:26-0500 Body temperature 37 Baldomero Powell MD Work Phone: [facility] 11-11-2024 09:42-0500 Body mass index (BMI) [Ratio] 25.93 kg/m2 Baldomero Powell MD Work Phone: [facility] 11-11-2024 09:42-0500 Body weight 104.33 kg Baldomero Powell MD Work Phone: [facility] 11-10-2024 04:05-0500 Body height 200.6 cm Baldomero Powell MD Work Phone: [facility] 11-09-2024 17:02-0500 Body temperature 98.01 [degF] Fer Kennedy MD Work Phone: [facility] 11-09-2024 17:02-0500 Diastolic blood pressure 55 mm[Hg] Fer Kennedy MD Work Phone: [facility] 11-09-2024 17:02-0500 Heart rate 63 /min Fer Kennedy MD Work Phone: [facility] 11-09-2024 17:02-0500 Respiratory rate 16 /min Fer Kennedy MD Work Phone: [facility] 11-09-2024 17:02-0500 SaO2% (BldA) [Mass fraction] 97 % Fer Kennedy MD Work Phone: [facility] 11-09-2024 17:02-0500 Systolic blood pressure 99 mm[Hg] Fer Kennedy MD Work Phone: [facility] 11-09-2024 08:12-0500 Body height 200.7 cm Fer Kennedy MD Work Phone: [facility] 11-09-2024 08:12-0500 Body mass index (BMI) [Ratio] 21.52 kg/m2 Fer Kennedy MD Work Phone: [facility] 11-09-2024 08:12-0500 Body weight 86.64 kg Fer Kennedy MD Work Phone: [facility] Comment on above: pt states last time he was weighed at [facility] this was his current weight 10-23-2024 03:44-0500 Body temperature 98.2 [degF] Kishore Gutierrez MD Work Phone: [facility] 10-23-2024 03:44-0500 Diastolic blood pressure 54 mm[Hg] Kishore Gutierrez MD Work Phone: [facility] 10-23-2024 03:44-0500 Heart rate 74 /min Kishore Gutierrez MD Work Phone: [facility] 10-23-2024 03:44-0500 Respiratory rate 17 /min Kishore Gutierrez MD Work Phone: [facility] 10-23-2024 03:44-0500 SaO2% (BldA) [Mass fraction] 98 % Kishore Gutierrez MD Work Phone: [facility] 10-23-2024 03:44-0500 Systolic blood pressure 103 mm[Hg] Kishore Gutierrez MD Work Phone: [facility] 10-13-2024 12:12-0500 Body temperature 37 Kishore Gutierrez MD Work Phone: [facility] 10-13-2024 12:08-0500 Body temperature 37 Kishore Gutierrez MD Work Phone: [facility] 10-13-2024 12:08-0500 SaO2% (BldA) [Mass fraction] 95 % Kishore Gutierrez MD Work Phone: [facility] 10-11-2024 10:15-0500 Body height 200.7 cm Kishore Gutierrez MD Work Phone: [facility] 10-11-2024 10:15-0500 Body mass index (BMI) [Ratio] 25.01 kg/m2 Kishore Gutierrez MD Work Phone: [facility] 10-11-2024 10:15-0500 Body weight 100.7 kg Kishore Gutierrez MD Work Phone: [facility] 10-10-2024 16:24-0500 Body temperature 37 Kishore Gutierrez MD Work Phone: [facility] 09-17-2024 08:06-0500 Body temperature 97 [degF] Ankit Nino MD Work Phone: [facility] 09-17-2024 08:06-0500 Diastolic blood pressure 56 mm[Hg] Ankit Nino MD Work Phone: [facility] 09-17-2024 08:06-0500 Heart rate 66 /min Ankit Nino MD Work Phone: [facility] 09-17-2024 08:06-0500 Respiratory rate 17 /min Ankit Nino MD Work Phone: [facility] 09-17-2024 08:06-0500 SaO2% (BldA) [Mass fraction] 96 % Ankit Nino MD Work Phone: [facility] 09-17-2024 08:06-0500 Systolic blood pressure 103 mm[Hg] Ankit Nino MD Work Phone: [facility] 09-13-2024 23:47-0500 Body temperature 37 Ankit Nino MD Work Phone: [facility] 09-13-2024 21:41-0500 Body height 200.7 cm Ankit Nino MD Work Phone: [facility] 09-13-2024 21:41-0500 Body mass index (BMI) [Ratio] 25.02 kg/m2 Ankit Nino MD Work Phone: [facility] 09-13-2024 21:41-0500 Body weight 100.8 kg Ankit Nino MD Work Phone: [facility] 09-13-2024 19:32-0500 Body temperature 100.6 [degF] Xiomara Kauffman MD Work Phone: [facility] 09-13-2024 19:32-0500 Diastolic blood pressure 63 mm[Hg] Xiomara Kauffman MD Work Phone: [facility] 09-13-2024 19:32-0500 Heart rate 90 /min Xiomara Kauffman MD Work Phone: [facility] 09-13-2024 19:32-0500 Respiratory rate 16 /min Xiomara Kauffman MD Work Phone: [facility] 09-13-2024 19:32-0500 SaO2% (BldA) [Mass fraction] 94 % Xiomara Kauffman MD Work Phone: [facility] 09-13-2024 19:32-0500 Systolic blood pressure 95 mm[Hg] Xiomara Kauffman MD Work Phone: [facility] 09-13-2024 11:29-0500 Body height 200.7 cm Xiomara Kauffman MD Work Phone: [facility] 09-13-2024 11:29-0500 Body mass index (BMI) [Ratio] 25.91 kg/m2 Xiomara Kauffman MD Work Phone: [facility] 09-13-2024 11:29-0500 Body weight 104.33 kg Xiomara Kauffman MD Work Phone: [facility] Encounters Encounter Date Encounter Type Care Provider Facility Start: 03-11-2025 End: 03-11-2025 Postop follow up visit related to original px Kong Mina MD Work Phone: [facility] Comment on above: Squamous cell carcin pasha of left thigh (Primary Dx) Start: 03-11-2025 ambulatory KONG MINA [facility] Start: 03-10-2025 ambulatory ASTRID HAWLEY [facility] Start: 03-10-2025 End: 03-10-2025 Office outpatient visit 40 minutes Astrid Hawley [employer] Work Phone: [facility] Comment on above: Encounter for monito ring opioid maintenance therapy (Primary Dx); Cancer associated pain; Squamous cell carcinoma of left thigh; Abscess; Other insomnia; Constipation due to pain medication therapy Start: 03-03-2025 End: 03-03-2025 ambulatory HONORIOTX EVELINA [facility] Ambulatory Start: 03-03-2025 End: 03-03-2025 Postop follow up visit related to original px Dean Jalloh MD Work Phone: [facility] Comment on above: Wound of thigh (Prim ayde Dx); Post-operative state; Encounter for change of dressing Start: 02-20-2025 ambulatory Julio SAMANIEGO Facil ity:[facility] Start: 02-18-2025 ambulatory Julio SAMANIEGO Facil ity:[facility] Start: 01-13-2025 End: 01-13-2025 ambulatory NO ASSIGNED PCP GENERIC PROVIDER [facility] Start: 01-13-2025 End: 01-13-2025 Subsequent hospital visit by physician Elizabeth [facility] Comment on above: Encounter for antine oplastic radiation therapy; 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, including hip Start: 01-10-2025 End: 01-10-2025 ambulatory NO ASSIGNED PCP GENERIC PROVIDER [facility] Start: 01-10-2025 End: 01-10-2025 Subsequent hospital visit by physician Elizabeth [facility] Comment on above: Arrived Encounter for antine oplastic radiation therapy; 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, including hip Start: 01-09-2025 End: 01-09-2025 ambulatory NO ASSIGNED PCP GENERIC PROVIDER [facility] Start: 01-09-2025 End: 01-09-2025 Subsequent hospital visit by physician Blaise Quijano [facility] Comment on above: Arrived Encounter for antine oplastic radiation therapy; 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, including hip Start: 01-08-2025 End: 01-08-2025 ambulatory NO ASSIGNED PCP GENERIC PROVIDER [facility] Start: 01-08-2025 End: 01-08-2025 Subsequent hospital visit by physician Elizabeth [facility] Comment on above: Arrived Encounter for antine oplastic radiation therapy; 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, including hip Start: 01-08-2025 End: 01-08-2025 ambulatory NO ASSIGNED PCP GENERIC PROVIDER [facility] Start: 01-08-2025 End: 01-08-2025 Subsequent hospital visit by physician Leslee Krueger Onc Tx Serafin [facility] Comment on above: Arrived Start: 01-07-2025 End: 01-07-2025 ambulatory NO ASSIGNED PCP GENERIC PROVIDER [facility] Start: 01-07-2025 End: 01-07-2025 Subsequent hospital visit by physician Elizabeth [facility] Comment on above: Arrived Start: 01-06-2025 ambulatory NO ASSIGNED PC P GENERIC PROVIDER [facility] Start: 01-03-2025 End: 01-03-2025 ambulatory NO ASSIGNED PCP GENERIC PROVIDER [facility] Start: 01-03-2025 End: 01-03-2025 Subsequent hospital visit by physician Leslee Krueger Onc Tx Serafin [facility] Comment on above: Arrived Start: 01-02-2025 End: 01-02-2025 Subsequent hospital visit by physician Leslee Wright Ct Simulator [facility] Comment on above: 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, including hip (Primary Dx) Start: 01-02-2025 End: 01-02-2025 ambulatory NO ASSIGNED PCP GENERIC PROVIDER [facility] Start: 01-02-2025 End: 01-02-2025 ambulatory PHIL QUIJANO [facility] Start: 01-02-2025 End: 01-02-2025 Subsequent hospital visit by physician Rad External [facility] [employer] [facility] Comment on above: 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, including hip Start: 12-24-2024 End: 02-17-2025 Evaluation and management of inpatient WILLOW FRANCO [facility] Start: 12-23-2024 Evaluation and manag ement of inpatient CURTIS MCFARLANE [facility] Start: 12-22-2024 End: 12-24-2024 Evaluation and management of inpatient Levi Mack DO Work Phone: [facility] Oncology Medical [facility] 7[facility] Comment on above: Sepsis, due to unspe cified organism, unspecified whether acute organ dysfunction present (HCC) (Primary Dx); Abscess of left hip Start: 12-20-2024 End: 12-20-2024 ambulatory SREEDHAR Nica ROMEROG [facility] Start: 12-20-2024 End: 12-20-2024 ambulatory SREEDHAR Nica [facility] Start: 12-20-2024 End: 12-20-2024 Office outpatient visit 40 minutes Sreedhar Jiang MD Work Phone: [facility] Comment on above: Squamous cell carcin pasha of left hip (Primary Dx); Hypercalcemia of malignancy Start: 12-20-2024 End: 12-20-2024 ambulatory [facility] Nica [facility] Start: 12-12-2024 End: 12-12-2024 Evaluation and management of inpatient LYNETTE SEGOVIA [facility] Start: 12-07-2024 End: 12-19-2024 Evaluation and management of inpatient Mine Nunez MD Work Phone: [facility] 5 Start: 12-06-2024 End: 12-07-2024 Evaluation and management of inpatient Fer Hollins MD Work Phone: [facility] EMERGENCY DEPT Comment on above: Abscess of left hip (Primary Dx) Start: 12-04-2024 End: 12-04-2024 ambulatory Julio SAMANIEGO [facility] Work Phone: Start: 12-04-2024 End: 12-04-2024 Departed Referred Julio Malik - [address] Start: 12-04-2024 Registered Referred Julio Malik - [address] Start: 12-04-2024 End: 12-04-2024 ambulatory Julio SAMANIEGO Facility:[facility] Start: 11-29-2024 End: 11-29-2024 Office outpatient visit 40 minutes Sreedhar Jiang MD Work Phone: [facility] Comment on above: 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); Squamous cell carcinoma of left hip; Hypercalcemia Start: 11-29-2024 End: 11-29-2024 ambulatory SREEDHAR JIANG [facility] Start: 11-10-2024 End: 11-27-2024 Evaluation and management of inpatient Baldomero Powell MD Work Phone: [facility] [address] Start: 11-08-2024 End: 11-10-2024 Evaluation and management of inpatient Fer Kennedy MD Work Phone: [facility] Medical Surgical Unit [facility] H5 Comment on above: Abscess (Primary Dx) Start: 10-24-2024 End: 10-24-2024 ambulatory Julio SAMANIEGO [facility] Work Phone: Start: 10-24-2024 End: 10-24-2024 Departed Referred Julio Malik - [address] Start: 10-24-2024 End: 10-24-2024 ambulatory Julio SAMANIEGO Facility:[facility] Start: 10-10-2024 End: 10-23-2024 Evaluation and management of inpatient Kishore Gutierrez MD Work Phone: [facility] [place] [facility] Start: 09-30-2024 End: 09-30-2024 ambulatory [facility] hospital Ambulatory Start: 09-30-2024 End: 09-30-2024 Office outpatient visit 25 minutes Marlon Christiansen MD Work Phone: [facility] Comment on above: Clinical trial parti cipant (Primary Dx) Start: 09-30-2024 End: 09-30-2024 Patient encounter procedure Marlon Christiansen MD Work Phone: [facility] Work Phone: Start: 09-24-2024 End: 09-24-2024 Office outpatient visit 10 minutes Ankit Nino MD Work Phone: [facility] Comment on above: Counseling on health promotion and disease prevention (Primary Dx); Hidradenitis suppurativa Start: 09-13-2024 End: 09-17-2024 Evaluation and management of inpatient Ankit Nino MD Work Phone: [facility] 50 Comment on above: Wound infection (Renee francine Dx); Nausea; Constipation, unspecified constipation type; Viral infection; Smoking Start: 09-12-2024 End: 09-13-2024 Emergency department patient visit Xiomara Kauffman MD Work Phone: [facility] ED Comment on above: Buttock wound, left, initial encounter (Primary Dx); Sepsis, due to unspecified organism, unspecified whether acute organ dysfunction present (HCC); Hidradenitis suppurativa Start: 08-20-2024 End: 08-20-2024 ambulatory Critical access hospital Ambulatory Start: 08-20-2024 End: 08-20-2024 Office outpatient visit 25 minutes Marlon Christiansen MD Work Phone: [facility] Comment on above: Clinical trial parti cipant (Primary Dx) Start: 08-20-2024 End: 08-20-2024 Patient encounter procedure Marlon Christiansen MD Work Phone: [facility] Work Phone: Start: 07-08-2024 End: 07-08-2024 ambulatory [facility] Amb[facility] Start: 05-27-2024 End: 05-27-2024 ambulatory [facility] Ambulatory Start: 04-12-2024 End: 04-12-2024 ambulatory [facility] Ambulatory Start: 04-04-2024 End: 04-04-2024 ambulatory [facility] Ambulatory Start: 04-04-2024 End: 04-04-2024 Office outpatient visit 15 minutes Kimber Last MD Work Phone: [facility] Comment on above: Clinical trial parti cipant (Primary Dx) Start: 04-04-2024 End: 04-04-2024 Patient encounter procedure Kimber Last MD Work Phone: [facility] Work Phone: Start: 02-29-2024 End: 02-29-2024 Subsequent hospital visit by physician Leslee [id number] Cr [id number] Holter/Ecg Resource [facility] Comment on above: Clinical trial parti cipant Start: 02-29-2024 End: 02-29-2024 Office outpatient visit 25 minutes Kimber Last MD Work Phone: [facility] Comment on above: Clinical trial parti cipant (Primary Dx) Start: 02-29-2024 End: 02-29-2024 Patient encounter procedure Kimber Last MD Work Phone: [facility] Work Phone: Start: 02-09-2024 End: 02-09-2024 Office outpatient visit 40 minutes Kimber Last MD Work Phone: [facility] Comment on above: Clinical trial parti cipant (Primary Dx) Start: 02-09-2024 End: 02-09-2024 Patient encounter procedure Kimber Last MD Work Phone: [facility] Work Phone: Start: 01-16-2024 End: 01-16-2024 Office outpatient visit 40 minutes Kimber Last MD Work Phone: [facility] Comment on above: Clinical trial parti cipant (Primary Dx) Start: 01-16-2024 End: 01-16-2024 Patient encounter procedure Kimber Last MD Work Phone: [facility] Work Phone: Start: 12-29-2023 End: 12-29-2023 Office outpatient visit 40 minutes Kimber Last MD Work Phone: [facility] Comment on above: Clinical trial parti cipant (Primary Dx) Start: 12-29-2023 End: 12-29-2023 Patient encounter procedure Kimber Last MD Work Phone: [facility] Work Phone: Start: 12-11-2023 End: 12-11-2023 Office outpatient visit 40 minutes Kimber Last MD Work Phone: [facility] Comment on above: Clinical trial parti cipant (Primary Dx) Start: 12-11-2023 End: 12-11-2023 Patient encounter procedure Kimber Last MD Work Phone: [facility] Work Phone: Start: 11-23-2023 End: 11-23-2023 Subsequent hospital visit by physician [facility] [id number] Cr Nonv1 Holter/Ecg Resource [facility] Comment on above: Clinical trial parti cipant Start: 11-23-2023 End: 11-23-2023 Office outpatient new 60 minutes Kimber Last MD Work Phone: [facility] Comment on above: Clinical trial parti cipant (Primary Dx) Start: 11-23-2023 End: 11-23-2023 Patient encounter procedure Kimber Last MD Work Phone: [facility] Work Phone: Start: 04-08-2023 Transcribe Orders Vivian Keen MD Work Phone: [facility] Comment on above: Hidradenitis suppura tiva [...] Urinalysis complete panel - Urine Ronna Leon [employer]ANTING MATERIAL UNLOADER Work Phone: Start: 12-22-2024 Urnls dip stick/tabl et rgnt auto w/o microscopy Ronna Leon [employer]ING MATERIAL UNLOADER Work Phone: Start: 12-22-2024 Culture bacterial an y source anaerobic iso&id Ronna Leon [employer]ING MATERIAL UNLOADER Work Phone: Start: 12-22-2024 Radex hip unilateral with pelvis 2-3 views Ronna Leon [employer] MATERIAL UNLOADER Work Phone: Start: 12-22-2024 Radiologic exam ches t single view Ronna Leon [employer]ING MATERIAL UNLOADER Work Phone: Start: 12-22-2024 Bacteria identified in Blood by Culture Ronna Leon [employer] PL[employer]ING MATERIAL UNLOADER Work Phone: Start: 12-22-2024 Comprehensive metabo lic panel Ronna Leon [employer]ING MATERIAL UNLOADER Work Phone: Start: 12-22-2024 Manual Differential panel - Blood Ronna Leon [employer] UNLOADER Work Phone: Start: 12-19-2024 Renal function panel Sheeba Gupta MD Work Phone: Start: 12-18-2024 Blood count complete auto&auto difrntl wbc Dara You DO Work Phone: Start: 12-17-2024 Renal function panel Sheeba Gupta MD Work Phone: Start: 12-16-2024 COMPOSING MACHINE OPERATOR/TENDER MODIFIED BARIUM SWALLOW EVALUATION Fer Gupta MD [...] lds trcg only w/o i&r Lynette Segovia [employer] UNLOADER Work Phone: Start: 12-12-2024 Mri lower extrem [...] Phone: Start: 12-07-2024 Comprehensive metabo lic panel Jayro Ashby DO Work Phone: Start: 12-06-2024 Bacteria [...] Work Phone: Start: 11-23-2024 Renal function panel Luciana Turner MD Work Phone: Start: 11-22-2024 End: [...] Phone: Start: 11-20-2024 RBC shape Nom (Bld) Evg paola Turner MD Work Phone: Start: 11-19-2024 Ct [...] Phone: Start: 11-15-2024 Assay of phosphorus inorganic sIa Turner MD Work Phone: Start: 11-14-2024 Volume [...] Iadna hepatitis c qu ant & reverse knitting machine fixer Carlos Manuel Rader MD Work Phone: Start: [...] Work Phone: Start: 11-11-2024 Assay of magnesium Evgh enia Johnny NIELSEN Work Phone: Start: 11-10-2024 Assay of lactate Lucianapardeepen tatianna Johnny NIELSEN Work Phone: Start: 11-10-2024 PROTEIN ELECTROPHORE SIS, [...] protein Noah Peña MD Work Phone: Start: 8 End: 11-10-2024 Comprehensive metabolic panel Noah Peña MD Work Phone: Start: 11-10-2024 Culture bacterial an y source anaerobic iso&id Noah Peña MD Work Phone: Start: 11-10-2024 Ecg routine ecg w/le ast 12 lds trcg only w/o i&r Noah Peña MD Work Phone: Start: 11-09-2024 Comprehensive metabo lic panel [employer] Work Phone: Start: 11-09-2024 Manual differential performed [Presence] in Blood Vinuth Koduru DO Work Phone: Start: 11-08-2024 Hemoglobin glycosylated a1c Kaushik Cervantes DO Work Phone: Start: 11-08-2024 Ct pelvis w/contrast [...] Work Phone: Start: 10-17-2024 Comprehensive metabo lic jeannine Felix MD Work Phone: Start: 10-17-2024 Drug screen quantita tive vancomycin Mack Grady MD Work Phone: Start: 10-16-2024 Comprehensive metabo lic panel Marvel Felix MD Work Phone: Start: 10-16-2024 Blood [...] Radiologic exam ches t single view Kishore Gutierrez MD Work Phone: Start: 10-10-2024 C-reactive protein Marianne Olvera MD Work Phone: Start: 10-10-2024 End: 10-10-2024 Glucose quantitative blood xcpt reagent strip Mack Grady MD Work Phone: Start: 09-17-2024 Renal function panel Ro janay Lewis MD Work Phone: Start: 09-16-2024 Drug screen quantita tive vancomycin Karissa Venegas PharmD Work Phone: Start: 09-16-2024 Renal function panel Ro janay Lewis MD Work Phone: Start: 09-15-2024 Drug screen quantita tive vancomycin Shane Galeano MD Work Phone: Start: 09-15-2024 Renal function panel Kaiser Boyd MD Work Phone: Start: 09-15-2024 Renal function panel Akanksha Lewis MD Work Phone: Start: 09-14-2024 Influenza [...] Radiologic exam ches t single view Carlos Lewis MD Work Phone: Start: 09-13-2024 EXTRA URINE [...] for Adults (1 - 1-dose 75+ series) [facility] Start: 2033 RSV patient s and/or patients aged 60+ years (1 - 1-dose 60+ series) RSV patients and/or patients aged 60+ years (1 - 1-dose 60+ series) [facility] Start: 09-14-2029 Lipid panel [facility] Start: 11-13-2027 Diabetes mellitus screening [facility] Start: 09-14-2027 Diabetes mellitus screening [facility] Start: 11-08-2025 Hemoglobin A1c measurement [facility] Start: 09-14-2025 Hemoglobin A1c measurement [facility] Start: 05-19-2025 Influenza vaccination [facility] Start: 04-07-2025 End: 04-07-2025 Telemedicine consultation with patient 04/07/2025 1:30 PM EDT Telemedicine [facility] [address] [place] [id number] Astrid Hawley, [employer]PLANTING MATERIAL UNLOADER [address] [place] [address] [facility] Start: 03-24-2025 End: 03-24-2025 Patient encounter procedure 03/24/2025 11:00 AM EDT Office Visit [facility] [address] [facility] [address] [place] [phone] [facility] Start: 03-11-2025 End: 03-11-2025 Patient encounter procedure 03/11/2025 12:00 PM EDT Office Visit [facility] [address] [place] [phone] [place] [address] [facility] [place] [address] [facility] Start: 03-11-2025 End: 03-11-2025 Telemedicine consultation with patient 03/11/2025 12:00 PM EDT Telemedicine [facility] [address] [place] [phone] [place] [address] [facility] [place] [address] [facility] Start: 03-10-2025 End: 03-10-2026 Drug Screen 9 Panel, Blood with Reflex to Confirmation Drug Screen 9 Panel, Blood with Reflex to Confirmation Lab Routine Encounter for monitoring opioid maintenance therapy Expected: 03/10/2025 (Approximate), Expires: 03/10/2026 [facility] Service Area Work Phone: Comment on above: Expected: 03/10/2025 (Approximate), Expires: 03/10/2026 Start: 03-10-2025 End: 03-10-2025 Patient encounter procedure 03/10/2025 2:00 PM EDT Office Visit [facility] [address] [facility] [address] [place] [phone] Astrid Hawley, [employer]PLANTING MATERIAL UNLOADER [address] [place] [address] [facility] Start: 01-27-2025 End: 01-27-2025 Follow-up encounter 01/27/2025 2:40 PM EDT Follow-Up [facility] [address] [place] [phone] Ara Riggs, PA-C [address] [place] [address] [facility] Start: 01-21-2025 End: 01-21-2025 Patient encounter procedure 01/21/2025 2:30 PM EDT Office Visit [facility] [address] [place] [address] Astrid Hawley, [employer]PLANTING MATERIAL UNLOADER [address] [place] [address] [facility] Start: 01-16-2025 End: 01-16-2025 ambulatory 01/16/2025 4:00 PM EDT Infusion [facility] [address] [place] [address] [facility] Start: 01-16-2025 End: 01-16-2025 Patient encounter procedure 01/16/2025 3:00 PM EDT Office Visit [facility] [address] [place] [phone] Sarah Rodarte, [employer]PLANTING MATERIAL UNLOADER [address] [place] [address] [facility] Start: 01-13-2025 End: 01-13-2025 Patient encounter procedure 01/13/2025 2:00 PM EDT Appointment [facility] [address] Lower Level [facility] [address] [place] [address] [facility] Start: 01-10-2025 End: 01-10-2025 Patient encounter procedure 01/10/2025 4:45 PM EDT Appointment [facility] [address] [place] [phone] [facility] Start: 01-10-2025 End: 01-10-2026 CBC W Auto Differential panel - Blood CBC and Auto Differential Lab Routine Squamous cell carcinoma of left hip Expected: 01/10/2025, Expires: 01/10/2026 [facility] Service Area Work Phone: Comment on above: Expected: 01/10/2025 , Expires: 01/10/2026 Start: 01-10-2025 End: 01-10-2026 Comprehensive metabolic 2000 panel - Serum or Plasma Comprehensive metabolic panel Lab Routine Squamous cell carcinoma of left hip Expected: 01/10/2025, Expires: 01/10/2026 [facility] Work Phone: Comment on above: Expected: 01/10/2025 , Expires: 01/10/2026 Start: 01-10-2025 End: 01-10-2026 Lactate dehydrogenase [Enzymatic activity/volume] in Serum or Plasma by Lactate to pyruvate reaction Lactate dehydrogenase Lab Routine Squamous cell carcinoma of left hip Expected: 01/10/2025, Expires: 01/10/2026 [facility] Work Phone: Comment on above: Expected: 01/10/2025 , Expires: 01/10/2026 Start: 01-10-2025 End: 01-10-2025 ambulatory 01/10/2025 1:00 PM EDT Infusion [facility] [address] [place] [address] [facility] Start: 01-10-2025 End: 01-10-2025 Patient encounter procedure [facility] Start: 01-09-2025 End: 01-09-2025 Patient encounter procedure [facility] Start: 01-08-2025 End: 01-08-2025 Patient encounter procedure [facility] Start: 01-07-2025 End: 01-07-2025 ambulatory [facility] Start: 01-07-2025 End: 01-07-2025 Patient encounter procedure [facility] Start: 01-07-2025 End: 01-07-2025 Patient encounter procedure 01/07/2025 8:30 AM EDT Appointment [facility] [address] Lower Level [facility] [address] [place] [address] [facility] Start: 01-06-2025 End: 01-06-2025 Patient encounter procedure 01/06/2025 6:00 PM EDT Appointment [facility] [address] [place] [address] [facility] Start: 12-30-2024 End: 12-30-2024 ambulatory [facility] Start: 12-30-2024 End: 12-30-2024 Patient encounter procedure 12/30/2024 10:00 AM EDT Office Visit [facility] [address] [place] [address] Astrid Hawley, RA[employer]RO[employer] B[employer] P[employer]TER-PLANTING MATERIAL UNLOADER [address] [place] [address] [facility] Start: 12-20-2024 End: 12-20-2024 ambulatory [facility] Start: 12-17-2024 End: 12-17-2024 ambulatory [facility] Start: 12-17-2024 End: 12-17-2024 Patient encounter procedure 12/17/2024 1:00 PM EDT Office Visit [facility] [address] [place] [phone] Astrid Hawley, RA[employer]RO[employer] B[employer] P[employer]TER-PLANTING MATERIAL UNLOADER [address] [place], [place] [phone] [facility] Start: 12-06-2024 End: 12-06-2025 CBC W Auto Differential panel - Blood CBC and Auto Differential Lab Routine Squamous cell carcinoma of left hip Expected: 12/06/2024, Expires: 12/06/2025 [facility] Service Area Work Phone: Comment on above: Expected: 12/06/2024 , Expires: 12/06/2025 Start: 12-06-2024 End: 12-06-2025 Comprehensive metabolic 2000 panel - Serum or Plasma Comprehensive metabolic panel Lab Routine Squamous cell carcinoma of left hip Expected: 12/06/2024, Expires: 12/06/2025 [facility] Work Phone: Comment on above: Expected: 12/06/2024 , Expires: 12/06/2025 Start: 12-06-2024 End: 12-06-2025 Corticotropin [Mass/volume] in Plasma Acth Lab Routine Squamous cell carcinoma of left hip Expected: 12/06/2024, Expires: 12/06/2025 [facility] Work Phone: Comment on above: Expected: 12/06/2024 , Expires: 12/06/2025 Start: 12-06-2024 End: 12-06-2025 Cortisol [Mass or Moles/volume] in Serum or Plasma --AM peak specimen Cortisol Am Lab Routine Squamous cell carcinoma of left hip Expected: 12/06/2024, Expires: 12/06/2025 [facility] Work Phone: Comment on above: Expected: 12/06/2024 , Expires: 12/06/2025 Start: 12-06-2024 End: 12-06-2025 Lactate dehydrogenase [Enzymatic activity/volume] in Serum or Plasma by Lactate to pyruvate reaction Lactate dehydrogenase Lab Routine Squamous cell carcinoma of left hip Expected: 12/06/2024, Expires: 12/06/2025 [facility] Work Phone: Comment on above: Expected: 12/06/2024 , Expires: 12/06/2025 Start: 12-06-2024 End: 12-06-2025 Tsh With Reflex To Free T4 If Abnormal Tsh With Reflex To Free T4 If Abnormal Lab Routine Squamous cell carcinoma of left hip Expected: 12/06/2024, Expires: 12/06/2025 [facility] Work Phone: Comment on above: Expected: 12/06/2024 , Expires: 12/06/2025 Start: 11-29-2024 End: 11-29-2024 ambulatory [facility] Start: 11-12-2024 End: 11-12-2024 ambulatory [facility] Start: 09-30-2024 End: 09-30-2024 Patient encounter procedure 09/30/2024 10:00 AM EST Office Visit [facility] [address] [facility] [address] [place] [address] [place] [address] Department of Dermatology/[place] [address] [facility] Start: 09-24-2024 End: 09-24-2024 Telemedicine consultation with patient 09/24/2024 8:40 AM EST Telemedicine [facility] [address] [facility] [address] [place] [address] [place] [address] [place] [address] [facility] Start: 09-20-2024 End: 09-20-2024 Patient encounter procedure 09/20/2024 11:30 AM EST Office Visit [address] [place] [address] Ronna Carpenter, [employer]AGE PORTER[address] [facility] [address] [place] [address] [facility] Start: 09-18-2024 End: 09-17-2025 CBC panel - Blood by Automated count CBC Lab Routine Wound infection Expected: 09/18/2024 (Approximate), Expires: 09/17/2025 [facility] Work Phone: Comment on above: Expected: 09/18/2024 (Approximate), Expires: 09/17/2025 Start: 09-18-2024 End: 09-17-2025 Renal function 2000 panel - Serum or Plasma Renal function panel Lab Routine Wound infection Expected: 09/18/2024 (Approximate), Expires: 09/17/2025 [facility] Service Area Work Phone: Comment on above: Expected: 09/18/2024 (Approximate), Expires: 09/17/2025 Start: 05-19-2024 COVID-19 Vaccine ( season) COVID-19 Vaccine ( season) [facility] Start: 05-19-2024 Influenza vaccination [facility] Start: 05-19-2024 [facility] Start: 04-12-2024 End: 04-12-2024 Patient encounter procedure 04/12/2024 9:00 AM EDT Office Visit [facility] [address] [facility] [address] [place] [address] [place] [address] Department of Dermatology/[place] [address] [facility] Start: 03-29-2024 End: 03-29-2024 Patient encounter procedure 03/29/2024 9:00 AM EDT Office Visit [facility] [address] [facility] [address] [place] [address] [place] [address] Department of Dermatology/[place] [address] [facility] Start: 03-19-2024 DTaP/Tdap/Td Vaccine s (2 - Td or Tdap) DTaP/Tdap/Td Vaccines (2 - Td or Tdap) [facility] Start: 03-19-2024 [facility] Start: 02-29-2024 End: 02-28-2025 ECG 12 lead (Ancillary Performed) [facility] Service Area Work Phone: Comment on above: Expected: 02/29/2024 (Approximate), Expires: 02/28/2025 Once for 1 Occurrenc es starting 02/29/2024 until 02/29/2024 Start: 02-09-2024 End: 02-09-2024 Patient encounter procedure 02/09/2024 9:30 AM EDT Office Visit [facility] [address] [facility] [address] [place] [address] [place] [address] Department of Dermatology/[place] [address] [facility] Start: 01-16-2024 End: 01-16-2024 Patient encounter procedure 01/16/2024 10:30 AM EDT Office Visit [facility] [address] [facility] [address] [place] [address] [place] [address] Department of Dermatology/[place] [address] [facility] Start: 11-23-2023 Subsequent hospital visit by physician 11/23/2023 11:01 AM EST Hospital Encounter [facility] [address] [facility] [address] [place] [address] Clinical trial participant [facility] Comment on above: Clinical trial parti cipant Start: 2023 Pneumococcal vaccination Pneum ococcal Vaccine (2 of 2 - PCV) [facility] Start: 2023 Pneumococcal Vaccine : 50+ Years (2 of 2 - PCV) Pneumococcal Vaccine: 50+ Years (2 of 2 - PCV) [facility] Start: 2023 Screening for malign ant neoplasm of lung [facility] Start: 2023 Zoster Vaccines (1 of 2) Zoste r Vaccines (1 of 2) [facility] Start: 2023 [facility] Start: 05-19-2023 COVID-19 Vaccine ( season) COVID-19 Vaccine ( season) [facility] Start: 05-19-2023 Influenza vaccination Influenza Vacc ine (#1) [facility] Start: 03-19-2015 Pneumococcal vaccination Pneum ococcal Vaccine (2 of 2 - PCV) [facility] Start: 03-19-2015 [facility] Start: 1995 DTaP/Tdap/Td Vaccine s (1 - Tdap) DTaP/Tdap/Td Vaccines (1 - Tdap) [facility] Start: 1992 DTaP/Tdap/Td Vaccine s (1 - Tdap) DTaP/Tdap/Td Vaccines (1 - Tdap) [facility] Start: 1992 Hepatitis B Vaccines (1 of 3 - 19+ 3-dose series) Hepatitis B Vaccines (1 of 3 - 19+ 3-dose series) [facility] Start: 1992 Urine screening for protein [facility] Start: 1992 Zoster Vaccines (1 of 2) Zoste r Vaccines (1 of 2) [facility] Start: 1992 [facility] Start: 1991 Diabetes mellitus screening Diabetes Screening [facility] Start: 1991 Hepatitis C screening S [facility] Start: 1985 [facility]: 1978 COVID-19 Vaccine (#1) COVID-19 Vacci ne (#1) [facility] Start: 1978 [facility] Start: 1974 MMR Vaccines (1 of 1 - Standard series) MMR Vaccines (1 of 1 - Standard series) [facility] Start: 1974 [facility] Start: 01-29-1974 COVID-19 Vaccine (#1) COVID-19 Vacci ne (#1) [facility] Start: 01-29-1974 Examination of skin Uni [facility] Start: 1973 Hepatitis B Vaccines (1 of 3 - 3-dose series) Hepatitis B Vaccines (1 of 3 - 3-dose series) [facility] Start: 1973 HIV screening [facility] Start: 1973 Lipid panel Lipid Panel [facility] Start: 1973 Screening for malign ant neoplasm of colon [facility] Start: 1973 Yearly Adult Physical Yearly Adult P hysical [facility] Start: 1973 [facility] End: 12-17-2024 Acupuncture eval and treat [facility] Service Area Work Phone: End: 09-12-2024 Aerobic and Anaerobic Culture with Stain [facility] Work Phone: Comment on above: Once (Lab) for 1 Occ urrences starting 09/12/2024 until 09/12/2024 End: 11-08-2024 Aerobic and Anaerobic Culture with Stain Aerobic and Anaerobic Culture with Stain Microbiology STAT Once (Lab) for 1 Occurrences starting 11/08/2024 until 11/08/2024 [facility] Work Phone: Comment on above: Once (Lab) for 1 Occ urrences starting 11/08/2024 until 11/08/2024 End: 12-06-2024 Aerobic and Anaerobic Culture with Stain [facility] Work Phone: Comment on above: Once (Lab) for 1 Occ urrences starting 12/06/2024 until 12/06/2024 End: 12-22-2024 Aerobic and Anaerobic Culture with Stain [facility] Work Phone: Comment on above: Once (Lab) for 1 Occ urrences starting 12/22/2024 until 12/22/2024 End: 09-16-2024 AFB CULTURE & STAIN; [facility]; [id number] - Miscellaneous Test [facility] [facility] Work Phone: Comment on above: Once (Lab) for 1 Occ urrences starting 09/16/2024 until 09/16/2024, 1 completed End: 11-18-2024 Art Therapy eval and treat [facility] Work Phone: End: 12-08-2024 Art Therapy eval and treat [facility] Work Phone: Bacteria identified in Blood by Culture Kite Bacteria identified in Blood by Culture Blood Culture Microbiology Routine 09/13/2024 11:14 PM EST [facility] Work Phone: Bacteria identified in Blood by Culture [facility] Bacteria identified in Blood by Culture [facility] Bacteria identified in Blood by Culture [facility] Bacteria identified in Unspecified specimen by Aerobe culture Culture, Aerobic Bacteria with Gram Stain Microbiology STAT 09/12/2024 9:58 PM EST [facility] End: 11-08-2024 Bacteria identified in Unspecified specimen by Aerobe culture Culture, Aerobic Bacteria with Gram Stain Microbiology Timed Once for 1 Occurrences starting 11/08/2024 until 11/08/2024 [facility] Work Phone: Comment on above: Once for 1 Occurrenc es starting 11/08/2024 until 11/08/2024 Bacteria identified in Unspecified specimen by Aerobe culture Culture, Aerobic Bacteria with Gram Stain Microbiology STAT 12/06/2024 12:18 PM EDT [facility] Bacteria identified in Unspecified specimen by Aerobe culture Culture, Aerobic Bacteria with Gram Stain Microbiology STAT 12/22/2024 1:37 PM EDT [facility] End: 09-12-2024 Bacteria identified in Unspecified specimen by Anaerobe culture [facility] Comment on above: Once for 1 Occurrenc es starting 09/12/2024 until 09/12/2024 End: 11-08-2024 Bacteria identified in Unspecified specimen by Anaerobe culture Anaerobic culture Microbiology Timed Once for 1 Occurrences starting 11/08/2024 until 11/08/2024 [facility] Comment on above: Once for 1 Occurrenc es starting 11/08/2024 until 11/08/2024 End: 12-06-2024 Bacteria identified in Unspecified specimen by Anaerobe culture [facility] Comment on above: Once for 1 Occurrenc es starting 12/06/2024 until 12/06/2024 Bacteria identified in Unspecified specimen by Anaerobe culture Anaerobic culture Microbiology STAT 12/22/2024 1:37 PM EDT [facility] Basic metabolic 2000 panel - Serum or Plasma [facility] Work Phone: CBC W Auto Different ial panel - Blood CBC and Auto Differential Lab Routine Morning draw (Lab) until discontinued starting 09/14/2024, 4 completed [facility] Work Phone: Comment on above: Morning draw (Lab) u ntil discontinued starting 09/14/2024, 4 completed CBC W Auto Different ial panel - Blood [facility] Work Phone: CBC W Auto Different ial panel - Blood [facility] Work Phone: CBC W Auto Different ial panel - Blood [facility] Work Phone: End: 10-11-2024 Consult to Interventional Radiology [facility] Work Phone: End: 11-12-2024 Consult to Interventional Radiology [facility] Work Phone: End: 11-20-2024 Consult to Interventional Radiology [facility] Work Phone: ECG 12 Lead ECG 12 Lead ECG Routine 09/14/2024 12:30 AM EST [facility] Work Phone: End: 11-13-2024 ECG 12 lead [facility] Work Phone: ECG 12 lead (Ancilla ry Performed) ECG 12 lead (Ancillary Performed) ECG Routine Clinical trial participant 11/23/2023 11:01 AM EST [facility] Work Phone: Electrocardiogram, 12-lead PRN ACS symptoms Electrocardiogram, 12-lead PRN ACS symptoms ECG Routine As needed until discontinued starting 09/13/2024 [facility] Work Phone: Comment on above: As needed until disc ontinued starting 09/13/2024 Electrocardiogram, 12-lead PRN ACS symptoms [facility] Work Phone: Electrocardiogram, 12-lead PRN ACS symptoms [facility] Work Phone: Electrocardiogram, 12-lead PRN ACS symptoms [facility] Work Phone: Fth/gft fr w/dir cls r s/a/l ea addl 20 cm/< SURGICAL PROCUREMENT, GRAFT, SKIN, FULL-THICKNESS, LOWER EXTREMITY Wound of thigh Virtual [facility] [place] End: 09-13-2024 Fungitell Beta-D Glucan [facility] Work Phone: Comment on above: Once (Lab) for 1 Occ urrences starting 09/13/2024 until 09/13/2024 Fungus identified in Unspecified specimen by Culture Fungal Culture/Smear Microbiology Routine 09/14/2024 11:41 AM EST [facility] Work Phone: Fungus identified in Unspecified specimen by Culture [facility] Work Phone: End: 09-13-2024 Histoplasma antigen, serum [facility] Work Phone: Comment on above: Once (Lab) for 1 Occ urrences starting 09/13/2024 until 09/13/2024 Magnesium [Mass/volu me] in Serum or Plasma Magnesium Lab Routine Morning draw (Lab) until discontinued starting 09/14/2024, 4 completed [facility] Work Phone: Comment on above: Morning draw (Lab) u ntil discontinued starting 09/14/2024, 4 completed Magnesium [Mass/volu me] in Serum or Plasma [facility] Work Phone: Magnesium [Mass/volu me] in Serum or Plasma [facility] Work Phone: End: 12-21-2024 Magnesium [Mass/volume] in Serum or Plasma [facility] Work Phone: End: 11-18-2024 Music Therapy eval and treat [facility] Work Phone: End: 12-08-2024 Music Therapy eval and treat [facility] Work Phone: Phosphate [Mass/volu me] in Serum or Plasma [facility] Work Phone: Renal function 1999 panel - Serum or Plasma Renal Function Panel Lab Routine Morning draw (Lab) until discontinued starting 09/14/2024, 4 completed [facility] Work Phone: Comment on above: Morning draw (Lab) u ntil discontinued starting 09/14/2024, 4 completed Renal function 1999 panel - Serum or Plasma [facility] Work Phone: Renal function 2000 panel - Serum or Plasma [facility] Work Phone: Immunizations Immunization Date Immunization Notes Care Provider Fa cility 12-08-2024 influenza vaccine tiss-cult subunt (Flucelvax) STANDARD-DOSE injection 0.5 mL Fer Hollins MD Work Phone: [facility] Payers Date Payer Category Payer Self-pay 2024 Medicaid (Managed Care) [id number] 2024 Medicaid HMO [id number] 2024 Unknown [id number] 2024 Medicaid [id number] 2022 Managed Care (Private) [employer] [facility] [id number] 2022 Private Health Insurance [id number] 2022 Private Health Insurance [id number] 1973 Unknown [id number] 2.16.840.1.726115.3.579. 2.124 1973 Unknown [id number] 2.16.840.1.143502.3.579. 2.1243 1973 Unknown [id number] 2.16.840.1.402550.3.579. 2.1244 1973 Unknown [id number] 2.16.840.1.511162.3.579. 2.1243 1973 Unknown [id number] 2.16.840.1.455866.3.579. 2.1243 1973 Unknown [id number] 2.16.840.1.037721.3.579. 2.1243 1973 Unknown [id number] 2.16.840.1.486700.3.579. 2.1243 1973 Unknown [id number] 2.16.840.1.751666.3.579. 2.1244 1973 Unknown [id number] 2.16.840.1.813184.3.579. 2.1244 1973 Unknown [id number] 2.16.840.1.616255.3.579. 2.1244 1973 Unknown [id number] 2.16.840.1.114064.3.579. 2.1244 1973 Unknown [id number] 2.16.840.1.281699.3.579. 2.1244 1973 Unknown [id number] 2.16.840.1.270835.3.579. 2.1244 1973 Unknown [id number] 2.16.840.1.571570.3.579. 2.1244 1973 Unknown [id number] 2.16.840.1.503854.3.579. 2.1244 1973 Unknown [id number] 2.16.840.1.026567.3.579. 2.1244 1973 Unknown [id number] 2.16.840.1.872489.3.579. 2.1244 1973 Unknown [id number] 2.16.840.1.822806.3.579. 2.1244 1973 Unknown [id number] 2.16.840.1.389389.3.579. 2.1244 1973 Unknown [id number] 2.16.840.1.460972.3.579. 2.1245 1973 Unknown [id number] 2.16840.1.082546.3.579. 2.124 1973 Unknown [id number] 2.16.840.1.571502.3.579. 2.124 1973 Unknown [id number] 2.840.1.179058.3.579. 2.1244 1973 Unknown [id number] 2.840.1.829016.3.579. 2.124 1973 Unknown [id number] 2.840.1.082019.3.579. 2.1244 1973 Unknown [id number] 2.840.1.092328.3.579. 2.1244 1973 Unknown [id number] 2.840.1.540564.3.579. 2.1244 1973 Unknown [id number] 2.840.1.907023.3.579. 2.1244 1973 Unknown [id number] 2.840.1.998128.3.579. 2.1244 1973 Unknown [id number] 2.840.1.576822.3.579. 2.1244 1973 Unknown [id number] 840.1.829874.3.579. 2.1245 Unknown [id number] .840.1.467805.3.579. 2.462 Unknown [id number] 2840.1.056408.3.579. 2.462 Unknown [id number] 2.840.1.459539.3.579. 2.462 Unknown [id number] 2.840.1.557613.3.579. 2.462 Social History Date Type Detail Facility Tobacco smoking stat [facility] Tobacco smoking consumption unknown [facility] Start: 1975 Sex Assigned At Not on file S [facility] Start: 09-13-2024 End: 02-17-2025 Gender identity Not on file [facility] Start: 03-29-2023 End: 02-04-2025 Exposure to SARS-CoV-2 (event) Not sure [facility] Start: 04-08-2023 End: 12-27-2024 Sex Male (finding) [facility] Start: 09-18-[facility] Work Phone: Start: 09-18-1986 End: 09-18-1986 History of tobacco use Cigarette Smoker [facility] Work Phone: Start: 09-13-2024 End: 02-17-2025 Cigarettes smoked current (pack per day) - Reported 1 [facility] Work Phone: Start: 09-13-2024 End: 11-10-2024 Tobacco use and exposure Smokeless tobacco non-user [facility] Work Phone: How often to you hav e a drink containing alcohol? Never [facility] Work Phone: How many standard drinks containing alcohol do you have on a typical day? Patient does not drink [facility] Work Phone: How hard is it for y ou to pay for the very basics like food, housing, medical care, and heating Very hard [facility] In the past 12 month s, was there a time when you were not able to pay the mortgage or rent on time? Yes [facility] Work Phone: At any time in the p ast 12 months, were you homeless or living in intermediate [including now]? No [facility] Work Phone: How hard is it for y ou to pay for the very basics like food, housing, medical care, and heating Somewhat hard [facility] (I/We) worried rah er (my/our) food would run out before (I/we) got money to buy more. Sometimes true [facility] Work Phone: (I/We) worried rah er (my/our) food would run out before (I/we) got money to buy more. Never true [facility] Start: 11-10-2024 Tobacco smoking stat us [facility] Ex-smoker [facility] Start: 09-18-2023 End: 09-18-1986 History of tobacco use Current smoker [facility] Work Phone: Start: 11-10-2024 End: 02-04-2025 Alcoholic beverage intake Ex-drinker (finding) [facility] Work Phone: Start: 1975 Sex Assigned At Male [facility] Functional Status Date Assessment Result Facility 12-07-2024 Are you deaf, or do you have serious difficulty hearing No 12/07/2024 2:58 PM Josie Laurent RN No [facility] 12-07-2024 Are you blind, or do you have serious difficulty seeing, even when wearing glasses No 12/07/2024 2:58 PM Josie Laurent RN No [facility] 12-07-2024 Do you have serious difficulty walking or climbing stairs Yes 12/07/2024 2:58 PM Josie Laurent RN Yes [facility] 12-07-2024 Because of a physica l, mental, or emotional condition, do you have difficulty doing errands alone such as visiting a physician's office or shopping Yes 12/07/2024 2:58 PM Josie Laurent RN Yes [facility] Mental Status Date Assessment Result Facility 12-07-2024 Because of a physica l, mental, or emotional condition, do you have serious difficulty concentrating, remembering, or making decisions No 12/07/2024 2:58 PM Josie Laurent RN No [facility] Clinical Notes 04-04-2024 to 03-11-2025 Kong Mina MD - 03/11/2025 12:00 PM Rita Hawley APRN-NEHAL - 03/10/2025 2:00 PM Huber Jalloh MD - 03/03/2025 3:15 PM Marv Quijano MD - 01/09/2025 5:00 PM EDT Note Date & Type Note Facility 03-11-2025 History of Present illness Narrative ASSESSMENT AND PLAN Kevan La is a 49 y.o. 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 He then underwent a laparoscopic loop colostomy creation to aid with keeping his wound clean and healing. He has been recovering in a nursing home facility and is making plans for skin grafting with plastic surgery. We discussed his multifocal positive margins and tumor board recommendation to reexcised that margin at the time of skin grafting. I will coordinate with Dr. Jalloh and be available for the surgery. We would also like to get him back to see Dr. Jiang to resume immunotherapy whenever the patient is amenable to this. Once he is healed from a plastic surgery standpoint we will make plans to close his loop colostomy. Kong Mina MD regional operations manager Division of Surgical Oncology [phone] [email or web address] SUBJECTIVE Kevan La is a 49 y.o. male who presents for a postoperative clinic visit. 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 Laparoscopic loop colostomy creation on 02/11/2025. Postoperative issues: Prolonged hospitalization, preoperatively and postoperatively, with ultimate discharge to nursing home facility. He met with Dr. Jalloh last week and discussed plans for skin grafting to his left thigh wound which is showing evidence of good granulation Physical exam Virtual visit Surgical Pathology FINAL DIAGNOSIS A. Skin, left posterior thigh, excision: --Invasive keratinizing squamous cell carcinoma (17.1 cm), well to poorly differentiated, arising in a background of hidradenitis; tumor present at 6-9-12:00 soft tissue margin, see comment Comment: Sections show invasive squamous cell carcinoma arising in a background of dilated and ruptured follicles, dermal fibrosis and chronic inflammation consistent with hidradenitis. Tumor differentiation ranges from well to poorly differentiated, with well-differentiated areas predominating. Tumor infiltrates the dermis, subcutaneous adipose tissue and skeletal muscle. Extensive keratinization and tumor necrosis are present. Tumor involves the 6-9-12:00 margin grossly and microscopically, is less than 4 mm from the deep margin, and is at least 15 mm from the 12-3-6:00. No definitive lymphovascular or perineural invasion are seen. Hidradenitis-related changes are present at the margins. documented in this encounter [facility] Work Phone: 03-10-2025 History of Present illness Narrative Images from the original note were not included. [facility] OUTPATIENT FOLLOW-UP SERVICE DATE: 03/10/2025 Subjective HISTORY OF PRESENT ILLNESS: Kevan La is a 49 y.o. male who presents with invasive L thigh SCC and severe hidradenitis suppurativa of buttocks and gluteal folds (refractory to treatment). Recent hospitalization from 12/24-02/17 as OSH transfer for L thigh wound with c/f sepsis. S/p radical resection of 15 cm tumor in the left posterior thigh with resection of surrounding skin and subcutaneous tissue with hidradenitis and subcutaneous abscesses, neurolysis of the sciatic nerve, and placement of negative pressure wound VAC on 01/30. S/p Laparoscopic loop sigmoid colostomy, irrigation of left posterior thigh wound, left posterior thigh wound vac placement 02/11/25. Evaluated by Supportive Oncology for management of pain. Pain Assessment: Location: left thigh Onset: weeks Severity: moderate Quality: sharp Timing/Duration: intermittent with dressing changes Referral Pattern: localized but sometimes radiates to foot Also with left foot and right hip - severe - intermittent Current medications/interventions: Gabapentin 300mg daily Tizanidine 2mg TID Methadone 10mg TID Oxycodone 10mg q4 PRN Tylenol 1g TID Ibuprofen 600mg QID Additional Symptom Assessment: Numbness or tingling in hands/feet/other: none Headache: none Lack of appetite: none Weight loss: a little Pain in mouth/swallowing: none Dry mouth: a little Taste changes: none Nausea/early satiety: none Vomiting: none Constipation: none Diarrhea: none Lack of energy: a little Difficulty sleeping: a little - initiation Anxiety: none Depression: none Shortness of breath: none Other: none Information obtained from: chart review and interview of patient ____ Objective Creatinine Date Value Ref Range Status 02/17/2025 1.23 0.50 - 1.30 mg/dL Final AST Date Value Ref Range Status 02/17/2025 14 9 - 39 U/L Final ALT Date Value Ref Range Status 02/17/2025 26 10 - 52 U/L Final Comment: Patients treated with Sulfasalazine may generate falsely decreased results for ALT. Hemoglobin Date Value Ref Range Status 02/17/2025 7.4 (L) 13.5 - 17.5 g/dL Final Platelets Date Value Ref Range Status 02/17/2025 819 (H) 150 - 450 x10*3/uL Final PHYSICAL EXAMINATION Vital Signs: 02/16/2025 5:49 PM 02/16/2025 8:25 PM 02/17/2025 12:02 AM 02/17/2025 3:57 AM 02/17/2025 9:12 AM 03/03/2025 3:38 PM 03/10/2025 2:54 PM Vitals Systolic 91 104 97 102 108 98 93 Diastolic 53 61 56 63 64 55 51 BP Location Right arm Heart Rate 50 66 62 69 55 47 Temp 36.6 C (97.9 F) 36.7 C (98.1 F) 36.6 C (97.9 F) 36.4 C (97.5 F) 36.3 C (97.3 F) 36 C (96.8 F) Resp 16 16 16 16 16 16 14 Weight (lb) -- Visit Report Report Report Physical Exam HENT: Head: Normocephalic and atraumatic. Mouth/Throat: Pharynx: Oropharynx is clear. Eyes: Extraocular Movements: Extraocular movements intact. Conjunctiva/sclera: Conjunctivae normal. Pulmonary: Effort: Pulmonary effort is normal. Abdominal: General: Abdomen is flat. Neurological: General: No focal deficit present. Mental Status: He is alert. Psychiatric: Mood and Affect: Mood normal. Thought Content: Thought content normal. ASSESSMENT/PLAN Pain Pain is: cancer related pain Type: somatic and neuropathic -Continue: Gabapentin 300mg daily Tizanidine 2mg TID Methadone 10mg TID (qtc 418 12/12/24- repeat EKG yearly or after increase) Tylenol 1g TID -Increase oxycodone 10-20mg q4 PRN -Change Ibuprofen 600mg QID to PRN Opioid Use Medication Management: - OARRS report reviewed with no aberrant behavior; consistent with prescriptions/records and patient history - MED 90 + 30mg methadone . Overdose Risk Score 460. This has been discussed with patient. - We will continue to closely monitor the patient for signs of prescription misuse including UDS, OARRS review and subjective reports at each visit. - No concurrent benzodiazepine use - I am a provider who either is or has consulted and collaborated with a provider certified in Hospice and Palliative Medicine and have conducted a face-face visit and examination for this patient. - Routine Urine Drug Screen completed- unable to void 03/10/25. Drug screen 9 panel pending - Controlled Substance Agreement completed 03/10/25 - Specifically discussed that controlled substance prescriptions will only be provided by our group as outlined in the completed agreement - Prescribed naloxone 03/10/25 - Red Flags: None Constipation At risk for constipation related to opioids -continue senna s 2 tabs BID -continue miralax 17g daily Sleeping Difficulty -increase melatonin to 6mg at bedtime Supportive Interventions: Interventions: Social work referral for: Advance Directives Medical Decision Making/Goals of Care/Advance Care Planning: Patient's current clinical condition, including diagnosis, and management plan, and goals of care were discussed. Goals: symptom control and cancer directed therapy Advance Directives Existence of Advance Directives: Yes - no interested Decision maker: Wishes to make his brother, Omkar La ([phone]) his HCPOA Next Follow-Up Visit: Return to clinic in 4 weeks Signature and billing Medical complexity was moderate level due to due to complexity of problems, extensive data review, and high risk of management/treatment. Time was spent on the following: Prep Time, Time Directly with Patient/Family/Caregiver, Documentation Time. Total time spent: 40 min Data Diagnostic tests and information reviewed for today's visit: Most recent labs and imaging results, Medications Some elements copied from Supportive Oncology note on 02/04/25, the elements have been updated and all reflect current decision making from today, 03/10/2025. Plan of Care discussed with: Patient SIGNATURE: TRAVIS Watson Contact information: [facility]ive [facility] Palliative Oncology Monday-Monday 8 AM-5 PM , press option #5, then option #1. Or [employer] Secure Chat documented in this encounter [facility] Work Phone: 03-03-2025 History of Present illness Narrative Images from the original note were not included. Subjective : Patient ID: Kevan La is a 49 y.o. male presenting for a post operative visit History of Present Illness: Kevan La is a 49 y.o. male with hx of large left posterior thigh SCC in the setting of chronic medically refractory hidradenitis s/p operative debridement 10/13/2024 per [facility] due to significant infection burden. 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 He [facility] on 12/24 for worsening disease of left thigh with septic shock following administration of cemiplimab on 12/20/2024. Plastic surgery consulted intraoperatively on 01/30/25 during OR with surgical and orthopedic oncology for possible assistance with soft tissue coverage s/p radical resection of 15 cm tumor in the left posterior thigh with resection of surrounding skin and subcutaneous tissue with hidradenitis and subcutaneous abscesses, neurolysis of the sciatic nerve, and application of a wound vac. He is now S/p I&D of L thigh/glute wound with gluteus randell and semimembranosus muscle rotational flaps on 02/04 per plastic surgery (Dr. Jalloh). Today he reports continued chronic pain from left hip. He is taking Methadone and Oxy for his chronic pain with relief at times. Dressing changes are being performed at his local facility with WTD BID. His optimizing his nutrition with protein and Ensure shakes between meals. No record of antibiotic use. Review of Systems ROS: All 10 systems were reviewed and are unremarkable except for those mentioned in HPI. Objective : Physical Exam Vitals and nursing note reviewed. Exam conducted with a tours hostess present. Constitutional: General: not in acute distress. Appearance: not ill-appearing. Eyes: Extraocular Movements: Extraocular movements intact. Conjunctiva/sclera: Conjunctivae normal. Pupils: Pupils are equal, round, and reactive to light. Cardiovascular: Rate and Rhythm: Normal rate and regular rhythm. Pulses: Normal pulses. Pulmonary: Effort: Pulmonary effort is normal. Breath sounds: Normal breath sounds. Abdominal: Palpations: Abdomen is soft. There is no mass. Tenderness: There is no abdominal tenderness. Hernia: No hernia is present. Musculoskeletal: General: No swelling or tenderness. Cervical back: Normal range of motion and neck supple. Skin: Capillary Refill: Capillary refill takes less than 2 seconds. Coloration: Skin is not jaundiced. Findings: No bruising or rash. Neurological: General: No focal deficit present. Mental Status: oriented to person, place, and time. Psychiatric: Mood and Affect: Mood normal. Behavior: Behavior normal. Thought Content: Thought content normal. Judgment: Judgment normal. Focused Exam: There is wound involving the posterior gluteal region that extends to the posterior mid thigh with exposed granulation tissue and satellites fibrinous exudate. The wound edges are grossly intact however, previous pathology showed positive margins. The remaining skin involving the thigh shows area of hyperpigmentation consistent with previous skin sheering forces and skin breakdown. There is a mal odor from the dressing since it has not been changes since 03/02. No signs of infection. Assessment/Plan : S/p SCC in the setting of chronic medically refractory hidradenitis s/p operative debridement 10/13/2024 Presented today for ongoing conversation of reconstruction Plans for future skin graft application in 3 weeks Case request submitted (03/03) with appropriate outreach to admin Recommend for continued WTD dressing BID Continue with Q2 turns to offload bony prominences Continue to optimize protein for optimal wound healing Referral to chronic pain placed for ongoing uncontrolled pain documented in this encounter [facility] Work Phone: 01-09-2025 History of Present illness Narrative Images from the original note were not included. Radiation Oncology On Treatment Visit Patient Name: Kevan La : 1975 Referring Provider: No ref. provider found Primary Care Provider: No Assigned PCP Ernestina Hagan MD Care Team: Patient Care Team: No Assigned Pcp Ernestina Hagan MD as PCP - General (Assessment Counselor) Sreedhar Jiang MD as Consulting Physician (Hematology [...] Follow up PRN. documented in this encounter [facility] Work Phone: 12-24-2024 Plan of care note [...] maintained or improved Outcome: Adequate for Discharge [facility] 12-24-2024 Miscellaneous Notes Problem: Knowledge Deficit Goal: [...] Awaiting sensitivity results documented in this encounter [facility] 12-24-2024 Note Hospitalist Progress Note Subjective: Admit Date: 12/22/2024 PCP: No primary care provider on file. Room#: E7-238/E7-418 A Chief Complaint Patient presents with Wound Infection Pt arrives by life care [facility] in [place], [facility] pt has had wound infection [...] Required levophed but is now off of. [facility] accepted him but waiting on bed until later this afternoon. He was boarded in our ED for 16hrs. Seen at bedside. Wounds are foul smelling. Pt states he was dropped off here from [facility] as it was the closest hospital. [...] body function (HIGH). (more content not included)... [facility] 12-24-2024 History of Present illness Narrative Hospitalist Progress Note Subjective: Admit Date: 12/22/2024 PCP: No primary care provider on file. Room#: E7-708/E7-708 A Chief Complaint Patient presents with Wound Infection Pt arrives by life care from [facility] in [place], per life care pt has had wound infection [...] Required levophed but is now off of. [facility] accepted him but waiting on bed until later this afternoon. He was boarded in our ED for 16hrs. Seen at bedside. Wounds are foul smelling. Pt states he was dropped off here from [facility] as it was the closest hospital. [...] Date -today - Location - Transfer to [facility] - Pending the following -transfer to Total time spent (which include face to face and non face to face encounters) : More than 30 minutes Extended Emergency Contact Information Primary Emergency Contact: Omkar La Mobile Relation: Brother Arben Fernandez MD Division of Hospital Medicine Inpatient Medical Services/[facility] Pharmacy to Dose Vancomycin - Progress Note Lab Results Component Value Date CREATININE 1.04 12/24/2024 BUN 7 (L) 12/24/2024 WBC 14.8 (H) 12/24/2024 Doses, serum creatinine, and vancomycin levels interfaced automatically to [facility] and data has been analyzed and interpreted. [...] creatinine, and vancomycin levels interfaced automatically to [facility] and data has been analyzed and interpreted. [...] via Secure Chat documented in this encounter [facility] 12-24-2024 Note Discharge Summary Kevan La : [...] Required levophed but is now off of. [facility] accepted him but waiting on bed until later this afternoon. He was boarded in our ED for 16hrs. Seen at bedside. Wounds are foul smelling. Pt states he was dropped off here from [facility] as it was the closest hospital. [...] XR hip left 2 or 3 views [[id number]] Collected: 12/22/241329 Order Status: Completed Updated: 12/22/241333 Narrative: Patient Name: KEVAN LA : 1975 Exam Date/Time: 12/22/2024 13 (more content not included)... [facility] 12-24-2024 Hospital course Narrative Discharge Summary Kevan [...] Required levophed but is now off of. [facility] accepted him but waiting on bed until later this afternoon. He was boarded in our ED for 16hrs. Seen at bedside. Wounds are foul smelling. Pt states he was dropped off here from [facility] as it was the closest hospital. [...] and vancomycin - continue fluids - follow - home gabapentin - prn oxycodone for pain - transfer to today SIGNIFICANT DIAGNOSTIC STUDIES: XR hip left 2 or 3 views [[id number]] Collected: 12/22/24 133 Order Status: Completed Updated: 12/22/241333 Narrative: Patient [...] 1:33 PM EDT XR chest 1 view [[id number]] Collected: 12/22/24 1323 Order Status: Completed Updated: 12/22/24 1326 Narrative: [facility]EVAN LA [facility] 1975 [id number] Exam Date/Time: 12/22/2024 13:20 Procedure: XR CHEST [...] FL modified barium with video and speech [[id number]] Collected: 12/16/24 1515 Order Status: Completed Updated: 12/22/24 1150 Narrative: Interpreted By: Jayson Abdi and Patriarca Hannah STUDY: FL MODIFIED BARIUM SWALLOW STUDY;; 12/16/2024 9:38 am INDICATION: Signs/Symptoms:r/o any dysphagia. COMPARISON: None. ACCESSION NUMBER(S): [id number] ORDERING CLINICIAN: GIBSON MENDIOLA TECHNIQUE: MBSS completed. Informed verbal consent obtained prior to completion of exam. Trials of thin, nectar thick, puree, and regular solids given. Fluoroscopy time : 1.8 minutes. Total of 2800 images were provided for review. 100 mL barium contrast. COMPOSING MACHINE OPERATOR/TENDER: Makayla Dunham Phone/Pager: Secure Chat SPEECH FINDINGS: Patient Name: Kevan La : 1975 Today's Date: 12/16/24 Start Time: 845 Stop Time: 915 Time Calculation (min): 30 min Modified Barium Swallow Study completed. Informed verbal consent obtained prior to completion of exam. Trials of thin liquid, mildly thick liquid, puree, and solids were given. COMPOSING MACHINE OPERATOR/TENDER: MINDY Camp Contact info: [facility] Reason for Referral: C/f aspiration/oropharyngeal dysphagia Patient Hx: Kevan La is a 49 y.o. 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 COMPOSING MACHINE OPERATOR/TENDER Frequency: 2x per week Duration: 1-2 weeks [...] given on all accounts. Treatment Provided Today: COMPOSING MACHINE OPERATOR/TENDER provided extensive education and training to pt/pt [...] further evaluation by medical specialists, as applicable. COMPOSING MACHINE OPERATOR/TENDER Impressions with Severity Rating: Pt presenting with [...] obtained, suspect within normal limits for clearance COMPOSING MACHINE OPERATOR/TENDER recommends cautious initiation of thin liquids and easy to chew diet. See additional PO intake guidelines outlined below. If pt demonstrates any change/decline in medical/mental/respiratory status please make NPO and alert COMPOSING MACHINE OPERATOR/TENDER. Will continue to follow while in acute care setting to ensure diet tolerance and use of safe swallow guidelines. aware of recommendations [place]'s Penetration Aspiration Scale Thin Liquids: 3. PENETRATION with LOW ASPIRATION risk - contrast remains above vocal cords, visible residue [place] Thick Liquids: 3. PENETRATION with LOW ASPIRATION [...] Dilan Hester. This study was interpreted at [facility], [place], [place]. MACRO: None Signed by: Jayson Abdi 12/16/2024 4:54 PM Dictation workstation: [id number] MR femur left w and wo IV contrast [[id number]] Collected: 12/12/24 1334 Order Status: Completed Updated: 12/22/24 1150 Narrative: Interpreted By: Kong Armijo and Lawrence Austen STUDY: MRI of the left femur with and without contrast dated 12/12/2024. INDICATION: Gluteal abscess/malignancy. Biopsy result of squamous cell carcinoma. History of chronic hidradenitis suppurativa. COMPARISON: None. Correlation is made with 12/06/2024 and 11/19/2024 CT examinations. ACCESSION NUMBER(S): [id number] ORDERING CLINICIAN: GIBSON MENDIOLA TECHNIQUE: Multiplanar multisequence [...] Kong Armijo 12/12/2024 1:33 PM Dictation workstation: [id number] MR femur left wo IV contrast [[id number]] Collected: 12/12/24 1320 Order Status: Completed Updated: 12/22/24 1150 Narrative: Interpreted By: Kong Armijo and Lawrence Austen STUDY: MRI of the left femur with and without contrast dated 12/10/2024. 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 History of chronic hidradenitis suppurativa. COMPARISON: Correlation is made with 12/06/2024 and 11/19/2024 CT examinations. ACCESSION NUMBER(S): [id number] ORDERING CLINICIAN: TOYA RUBIO TECHNIQUE: Multiplanar multisequence MRI of the left femur was performed with and without intravenous gadolinium based contrast. FINDINGS: No images were obtained as the patient was unable to cooperate for the exam. Impression: No images were obtained as the patient was unable to cooperate for the exam. MACRO: None Signed by: Kong Aleksander 12/12/2024 1:18 PM Dictation workstation: [id number] CT pelvis w IV contrast [[id number]] Collected: 12/06/24 1324 Order Status: Completed Updated: 12/06/24 1330 Narrative: [facility]: KEVAN LA [facility] 1975 [id number] Exam Date/Time: 12/06/2024 12:46 Procedure: CT PELVIS [...] Complexity: follow up within 7-14 calendar days (19075) [] Severe Complexity: follow up within 7 calendar days (60642) FOLLOW UP TESTING, PENDING RESULTS OR REFERRALS [...] 12/24/2024, 10:10 AM documented in this encounter [facility] 12-24-2024 Nurse Note See new oxy 5 mg one time dose order [facility] 12-24-2024 Nurse Note See new oxy 5 mg one time dose order Attending secure chatted due to patient asking for PRN pain meds with soft BP's. Awaiting answer Called and this nurse gave report to Lori NEWTON for patient. P/U time still 1230. Patient updated. Call received from . Patient has bed waiting at [facility] room [facility]. Nurse to nurse report number [phone]. Social work to arrange transportation in AM. Patient notified documented in this encounter [facility] 12-24-2024 Nurse Note Attending secure chatted due to patient asking for PRN pain meds with soft BP's. Awaiting answer [facility] 12-24-2024 Nurse Note Called [facility] and this nurse gave report to Lori NEWTON for patient. P/U time still 1230. Patient updated. T [facility] 12-24-2024 Note Pharmacy to Dose Van comycin - Progress Note Lab Results Component Value Date CREATININE 1.04 12/24/2024 BUN 7 (L) 12/24/2024 WBC 14.8 (H) 12/24/2024 Doses, serum creatinine, and vancomycin levels interfaced automatically to [facility] and data has been analyzed and interpreted. [...] placed. DATE: 12/24/24 TIME: 8:37 AM Diana Warren, AlbertoD Clinical Pharmacist Available via Secure Chat [facility] 12-24-2024 Plan of care note Problem: Knowledge [...] 12/23/20242013 by Diana Wise RN Outcome: Progressing [facility] 12-24-2024 Nurse Note Call received from . Patient has bed waiting at [facility] room [facility]. Nurse to nurse report number [phone]. Social work to arrange transportation in AM. Patient notified [facility] 12-23-2024 Plan of care note Problem: Knowledge [...] monitored and maintained or improved Outcome: Progressing [facility] 12-23-2024 Consult note Associated Order (s): INPATIENT [...] hip and hidradenitis suppurativa who presented to [facility] 12/[address] [facility] for increased drainage and malodor of L hip wound. He is awaiting transfer to [facility]. Of note, patient recently hospitalized at 12/07 - 12/17 and was discharged to [facility] on Augmentin through 01/12. He had a [...] Resource Strain: Medium Risk (12/07/2024) Received from [facility] Overall Financial Resource Strain (CARDIA) Difficulty of Paying Living Expenses: Somewhat hard Food Insecurity: No Food Insecurity (12/07/2024) Received from [facility] Hunger Vital Sign Worried About Running Out of Food in the Last Year: Never true Ran Out of Food in the Last Year: Never true Recent Concern: Food Insecurity - Food Insecurity Present (10/11/2024) Received from [facility] Hunger Vital Sign Worried About Running Out of Food in the Last Year: Sometimes true Ran Out of Food in the Last Year: Sometimes true Transportation Needs: No Transportation Needs (12/07/2024) Received from [facility] PRAPARE - Transportation Lack of Transportation (Medical): No Lack of Transportation (Non-Medical): No Physical Activity: Not on file Stress: Not on file Social Connections: Not on file Intimate Partner Violence: Not At Risk (12/07/2024) Received from [facility] Humiliation, Afraid, Rape, and Kick questionnaire Fear of Current or Ex-Partner: No Emotionally Abused: No Physically Abused: No Sexually Abused: No Housing Stability: High Risk (12/07/2024) Received from [facility] Housing Stability Vital Sign Unable to Pay [...] Normal [] Scar/Lesion/Mass Inspection of teeth/lips/gums Dentition: [][place] Teeth []Dentures Lips/Gums: [x]Intact []Lesion Present Mucosa: [x]Kirwin []Moist []Dry Neck: External Appearance Overall Appearance: [...] 17.3* ABGs: No results for input(s): "PHART", "LXM7YUR", "PO2ART", "OWZ7YTK", "SO2ART", "H8IYVMLJ" in the last 72 hours. Lactic Acid: [...] Patient stable for GMF, awaiting transfer to [facility] Re-check lactic acid, BMP to monitor hypercalcemia Recommend continuing broad spectrum Vancomycin and Zosyn, pending wound and blood cultures Recommending continuing current pain regimen Remainder per primary service GI Prophylaxis: N/A DVT Prophylaxis: Lovenox 40 q 24hr - creatinine clearance >30 BMI Classification: Body mass index is 22.19 kg/m . normal BMI 18.5-24.9 Disposition: Stable for GMF, awaiting transfer to [facility] Cosigned by Noah Stewart DO at 12/23/2024 7:11 PM EDT Associated attestation - Noah Stewart DO - 12/23/2024 7:11 PM EDT I have personally performed a [id number]-zv-nrjj diagnostic evaluation on this patient on date of service 12/23/24. History, labs, imaging studies, and electronic medical record have been reviewed by me. This note documented by the []Critical Care Fellow [x]housekeeper/custodian/laundry worker []BRITTNEY reflects my history, exam, and medical [...] other team members and physicians, excluding procedures. FAZUA Phone: 12-23-2024 Consult note Associated Order (s): [...] hip and hidradenitis suppurativa who presented to [facility] 12/[address] [facility] for increased drainage and malodor of L hip wound. He is awaiting transfer to [facility]. Of note, patient recently hospitalized at 12/07 - 12/17 and was discharged [address] [facility] on Augmentin through 01/12. He had a [...] Resource Strain: Medium Risk (12/07/2024) Received from [facility] Overall Financial Resource Strain (CARDIA) Difficulty of Paying Living Expenses: Somewhat hard Food Insecurity: No Food Insecurity (12/07/2024) Received from [facility] Hunger Vital Sign Worried About Running Out of Food in the Last Year: Never true Ran Out of Food in the Last Year: Never true Recent Concern: Food Insecurity - Food Insecurity Present (10/11/2024) Received from [facility] Hunger Vital Sign Worried About Running Out of Food in the Last Year: Sometimes true Ran Out of Food in the Last Year: Sometimes true Transportation Needs: No Transportation Needs (12/07/2024) Received from [facility] PRAPARE - Transportation Lack of Transportation (Medical): No Lack of Transportation (Non-Medical): No Physical Activity: Not on file Stress: Not on file Social Connections: Not on file Intimate Partner Violence: Not At Risk (12/07/2024) Received from [facility] Humiliation, Afraid, Rape, and Kick questionnaire Fear of Current or Ex-Partner: No Emotionally Abused: No Physically Abused: No Sexually Abused: No Housing Stability: High Risk (12/07/2024) Received from [facility] Housing Stability Vital Sign Unable to Pay [...] Normal [] Scar/Lesion/Mass Inspection of teeth/lips/gums Dentition: [][place] Teeth []Dentures Lips/Gums: [x]Intact []Lesion Present Mucosa: [x]Kirwin []Moist []Dry Neck: External Appearance Overall Appearance: [...] 17.3* ABGs: No results for input(s): "PHART", "MPS1DKP", "PO2ART", "QBS9BWT", "SO2ART", "J9RKIJGA" in the last 72 hours. Lactic Acid: [...] Patient stable for GMF, awaiting transfer to [facility] Re-check lactic acid, BMP to monitor hypercalcemia Recommend continuing broad spectrum Vancomycin and Zosyn, pending wound and blood cultures Recommending continuing current pain regimen Remainder per primary service GI Prophylaxis: N/A DVT Prophylaxis: Lovenox 40 q 24hr - creatinine clearance >30 BMI Classification: Body mass index is 22.19 kg/m . normal BMI 18.5-24.9 Disposition: Stable for GMF, awaiting transfer to [facility] Cosigned by Noah Stewart DO at 12/23/2024 7:11 PM EDT Associated attestation - Noah Stewart DO - 12/23/2024 7:11 PM EDT I have personally performed a snaw-ah-opal diagnostic evaluation on this patient on date of service 12/23/24. History, labs, imaging studies, and electronic medical record have been reviewed by me. This note documented by the []Critical Care Fellow [x]housekeeper/custodian/laundry worker []BRITTNEY reflects my history, exam, and medical [...] physicians, excluding procedures. documented in this encounter [facility] 12-23-2024 Emergency department Note RN informed patient admitting team of patient b/p . Pt on the monitor. Pt declined feeling dizzy or nauseous. Pt want pants, RN is looking for pants [facility] 12-23-2024 Emergency department Note RN informed patient [...] Infection Pt arrives by life care [facility] [place] pt has had wound infection since September, [...] his facility about a week ago from [facility] as he has SCC treating with cemiplimab. [...] typical urinary output. History provided by: Patient home aide used: No INFORMED PHOTO CONSENT: The patient has given verbal consent to have photos taken of left hip and inserted into their provider note as a part of their permanent medical record for purposes of documentation, treatment management, and/or medical review. All images taken were transmitted and stored on a secure [employer] located within a Media Folder Tab by a registered [employer] Mobile Application Device. See "Media" tab in Epic or photo as below. Kofi Coma Scale Score: 15 Patient History No [...] HENT: Head: Normocephalic and atraumatic. Mouth/Throat: Lips: Kirwin. Mouth: Mucous membranes are moist. Cardiovascular: Rate [...] Procedure Abnormality Status --------- ------ Culture, Aerobic Bacteri...[[id number]] In process Anaerobic culture[[id number]] In process Please view results for these tests on the individual orders. CULTURE, AEROBIC BACTERIA WITH GRAM STAIN CULTURE ANAEROBIC COMPLETE URINALYSIS WITH REFLEX TO CULTURE Narrative: The following orders were created for panel order Urinalysis Complete with reflex to Culture. Procedure Abnormality Status --------- ------ Complete Urinalysis[[id number]] Normal Final result Please view results for these tests on the individual orders. Encounter Date: 12/06/24 ECG 12 lead Result Value Heart Rate 58 QRSD Interval 94 QT Interval 397 QTC Interval 390 P Macon 44 QRS Macon 55 T Wave Macon 56 DC Interval 142 Impression Sinus bradycardia Electronically Signed On 12-06-2024 11:47:13 EDT by Fer Hollnis ED Course & MDM Medical Decision Making Presents to the emergency department for a worsening malodorous wound to his left hip that was recently treated at [facility]. He is failing outpatient antibiotic therapy of [...] Prescription drug management. ED Course as of 12/22/241822 Sun Dec 22, 2024 1325 Auto WBC(!): [...] by Dr. Mcfarlane for the MICU at [facility] [[facility]] ED Course User Index [[facility]] Levi Mack DO [NA] Ronna Leon, RAILROAD BAGGAGE PORTER - PLANTING MATERIAL UNLOADER Diagnoses as of 12/22/241822 Sepsis, due to unspecified organism, unspecified whether [...] made to ensure accuracy; however, inadvertent computerized knitting machine fixer errors may be present.* TRAVIS Verduzco 12/22/24 RANDALL Verduzco CNP 12/22/24 1759 Cosigned by Levi Mack DO at 12/22/2024 6:43 PM EDT Emergency Department Encounter [facility] EMERGENCY DEPT Patient: Kevan La : 1975 [...] toward the left greater trochanter. He is [facility] had reported that he is currently on chemotherapy. He was hospitalized recently due to concerns of an abscess and had this managed by general surgery at [facility]. He receives most of his care for hidradenitis suppurativa at and is requesting to be transferred given that they are familiar with his care. Believe this is appropriate due to patient will require further evaluation by the surgery and primary team taking care of his chronic wound. We will continue IV antibiotics and IV pressors and transfer patient to [facility] for management. Diagnostics interpreted by me: I personally discussed the patient's management with other clinicians: Critical Care note: This patient was unstable and required constant supervision by me for 35 minutes during their visit. The patient's condition requiring intervention included: sepsis evaluation, multiple reassessments, vasopressors. This critical care time did not include time for procedures or time spent by the physicians assistant banquet manager if they were caring for this patient. [...] signout who has been awaiting transfer to [facility] for septic shock in the setting of a left buttock wound requiring Levophed. I reviewed his labs and his medications and unfortunately has not been dosed with Zosyn since 1 PM. I reordered that and also timed for every 6 hours. He has been boarding in our emergency department for 16 hours now. We reached out to [facility] and they stated that there would not [...] fluid responsive. I reached back out to [facility] to get him accepted to a regular nursing floor. I spoke with Dr Benitez at [facility] who accepted the patient to the regular nursing floor but they will still not have beds until most likely later this afternoon so will plan to admit him here medically so that the can be under the supervision and care of a hospitalist. Admitted in stable condition. Mary Calvert MD 12/23/24 0629 documented in this encounter [facility] 12-23-2024 Emergency department Note Pt moved into inpatient bed. Pt on the monitor. [facility] 12-23-2024 Emergency department Note Report given to Sunni NEWTON [facility] 12-23-2024 History and physical note Attending History [...] Required levophed but is now off of. [facility] accepted him but waiting on bed until later this afternoon. He was boarded in our ED for 16hrs. Seen at bedside. Wounds are foul smelling. Pt states he was dropped off here from [facility] as it was the closest hospital. [...] Resource Strain: Medium Risk (12/07/2024) Received from [facility] Overall Financial Resource Strain (CARDIA) Difficulty of Paying Living Expenses: Somewhat hard Food Insecurity: No Food Insecurity (12/07/2024) Received from [facility] Hunger Vital Sign Worried About Running Out of Food in the Last Year: Never true Ran Out of Food in the Last Year: Never true Recent Concern: Food Insecurity - Food Insecurity Present (10/11/2024) Received from [facility] Hunger Vital Sign Worried About Running Out of Food in the Last Year: Sometimes true Ran Out of Food in the Last Year: Sometimes true Transportation Needs: No Transportation Needs (12/07/2024) Received from [facility] PRAPARE - Transportation Lack of Transportation (Medical): No Lack of Transportation (Non-Medical): No Physical Activity: Not on file Stress: Not on file Social Connections: Not on file Intimate Partner Violence: Not At Risk (12/07/2024) Received from [facility] Humiliation, Afraid, Rape, and Kick questionnaire Fear of Current or Ex-Partner: No Emotionally Abused: No Physically Abused: No Sexually Abused: No Housing Stability: High Risk (12/07/2024) Received from [facility] Housing Stability Vital Sign Unable to Pay [...] transfer to when bed available were his field checker, 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 Holding off [...] - Date - 12/23 - Location - [facility] - Pending the following - bed available [...] - DO NOT do CPR, intubation] [_] [DNR-EMERGENCY VEHICLE DRIVER - Comfort care only] [_] DNR form [...] Clarita Hay DO Division of Hospitalist Medicine [employer] Work Phone: 12-23-2024 Note Attending History an [...] Required levophed but is now off of. [facility] accepted him but waiting on bed until later this afternoon. He was boarded in our ED for 16hrs. Seen at bedside. Wounds are foul smelling. Pt states he was dropped off here from [facility] as it was the closest hospital. [...] Resource Strain: Medium Risk (12/07/2024) Received from [facility] Overall Financial Resource Strain (CARDIA) Difficulty of Paying Living Expenses: Somewhat hard Food Insecurity: No Food Insecurity (12/07/2024) Received from [facility] Hunger Vital Sign Worried About Running Out of Food in the Last Year: Never true Ran Out of Food in the Last Year: Never true Recent Concern: Food Insecurity - Food Insecurity Present (10/11/2024) Received from [facility] Hunger Vital Sign Worried About Running Out of Food in the Last Year: Sometimes true Ran Out of Food in the Last Year: Sometimes true Transportation Needs: No Transportation Needs (12/07/2024) Received from [facility] PRAPARE - Transportation Lack of Transportation (Medical): No Lack of Transportation (Non-Medical): No Physical Activity: Not on file Stress: Not on file Social Connections: Not on file Intimate Partner Violence: Not At Risk (12/07/2024) Received from [facility] Humiliation, Afraid, Rape, and Kick questionnaire Fear of Current or Ex-Partner: No Emotionally Abused: No Physically Abused: No Sexually Abused: No Housing Stability: High Risk (12/07/2024) Received from [facility] Housing Stability Vital Sign Unable to Pay [...] Negative for fever, (more content not included)... [facility] 12-23-2024 History and physical note Attending History [...] Required levophed but is now off of. [facility] accepted him but waiting on bed until later this afternoon. He was boarded in our ED for 16hrs. Seen at bedside. Wounds are foul smelling. Pt states he was dropped off here from [facility] as it was the closest hospital. [...] Resource Strain: Medium Risk (12/07/2024) Received from [facility] Overall Financial Resource Strain (CARDIA) Difficulty of Paying Living Expenses: Somewhat hard Food Insecurity: No Food Insecurity (12/07/2024) Received from [facility] Hunger Vital Sign Worried About Running Out of Food in the Last Year: Never true Ran Out of Food in the Last Year: Never true Recent Concern: Food Insecurity - Food Insecurity Present (10/11/2024) Received from [facility] Hunger Vital Sign Worried About Running Out of Food in the Last Year: Sometimes true Ran Out of Food in the Last Year: Sometimes true Transportation Needs: No Transportation Needs (12/07/2024) Received from [facility] PRAPARE - Transportation Lack of Transportation (Medical): No Lack of Transportation (Non-Medical): No Physical Activity: Not on file Stress: Not on file Social Connections: Not on file Intimate Partner Violence: Not At Risk (12/07/2024) Received from [facility] Humiliation, Afraid, Rape, and Kick questionnaire Fear of Current or Ex-Partner: No Emotionally Abused: No Physically Abused: No Sexually Abused: No Housing Stability: High Risk (12/07/2024) Received from [facility] Housing Stability Vital Sign Unable to Pay [...] transfer to when bed available were his field checker, 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 Holding off [...] - Date - 12/23 - Location - [facility] - Pending the following - bed available [...] - DO NOT do CPR, intubation] [_] [DNR-EMERGENCY VEHICLE DRIVER - Comfort care only] [_] DNR form [...] Clarita Hay DO Division of Hospitalist Medicine [facility] documented in this encounter [facility] 12-23-2024 Emergency department Note Received report from Parish NEWTON T [facility] 12-23-2024 Emergency department Note Levo drip turned off. BP 102/64. T [facility] 12-22-2024 Emergency department Note Levo titrated to 2mcg/min. Patient BP remains stable. T [facility] 12-22-2024 Emergency department Note Levo titrated to 4mcg/min. BP remains stable. Patient asymptomatic. T [facility] 12-22-2024 Emergency department Note Levo titrated to 6mcg/min. BP remains stable. Patient asymptomatic. T [facility] 12-22-2024 Emergency department Note Report given to Parish NEWTON T [facility] 12-22-2024 Emergency department Note Dressing change completed with ABD pads, 2x2s and tape. Pt repostioned and saturated chucks removed [facility] 12-22-2024 Emergency department Note Messaged pharmacy regarding missing vancomycin dose T [facility] 12-22-2024 Emergency department Note Report given to Mary NEWTON for lunch coverage [facility] 12-22-2024 Physician Emergency department Note Images from the original note were not included. HPI Chief Complaint Patient presents with Wound Infection Pt arrives [facility] in [place], per life care pt has had wound infection [...] his facility about a week ago from [facility] as he has SCC treating with cemiplimab. [...] typical urinary output. History provided by: Patient home aide used: No INFORMED PHOTO CONSENT: The patient has given verbal consent to have photos taken of left hip and inserted into their provider note as a part of their permanent medical record for purposes of documentation, treatment management, and/or medical review. All images taken were transmitted and stored on a secure [employer] Site located within a Media Folder Tab by a registered [employer] Application Device. See "Media" tab in Epic or photo as below. Kofi Coma Scale Score: 15 Patient History No [...] HENT: Head: Normocephalic and atraumatic. Mouth/Throat: Lips: Kirwin. Mouth: Mucous membranes are moist. Cardiovascular: Rate [...] Procedure Abnormality Status --------- ------ Culture, Aerobic Bacteri...[[id number]] In process Anaerobic culture[[id number]] In process Please view results for these tests on the individual orders. CULTURE, AEROBIC BACTERIA WITH GRAM STAIN CULTURE ANAEROBIC COMPLETE URINALYSIS WITH REFLEX TO CULTURE Narrative: The following orders were created for panel order Urinalysis Complete with reflex to Culture. Procedure Abnormality Status --------- ------ Complete Urinalysis[[id number]] Normal Final result Please view results for these tests on the individual orders. Encounter Date: 12/06/24 ECG 12 lead Result Value Heart Rate 58 QRSD Interval 94 QT Interval 397 QTC Interval 390 P Macon 44 QRS Macon 55 T Wave Macon 56 DC Interval 142 Impression Sinus bradycardia Electronically Signed On 12-06-2024 11:47:13 EDT by Fer Hollins ED Course & MDM Medical Decision Making Presents to the emergency department for a worsening malodorous wound to his left hip that was recently treated at [facility]. He is failing outpatient antibiotic therapy of [...] by Dr. Mcfarlane for the MICU at [facility] [MJ] ED Course User Index [MJ] Levi Mack DO [NA] RANDALL Verduzco CNP Diagnoses as of 12/22/241822 Sepsis, due to unspecified organism, unspecified whether [...] made to ensure accuracy; however, inadvertent computerized knitting machine fixer errors may be present.* TRAVIS Verduzco 12/22/24 RANDALL Verduzco CNP 12/22/24 2814 Cosigned by Levi Mack DO at 12/22/2024 6:43 PM EDT [facility] 12-22-2024 Physician Emergency department Note Emergency Department Encounter [facility] EMERGENCY DEPT Patient: Kevan La : 1975 [...] toward the left greater trochanter. He is chcf had reported that he is currently on chemotherapy. He was hospitalized recently due to concerns of an abscess and had this managed by general surgery at [facility]. He receives most of his care for hidradenitis suppurativa at and is requesting to be transferred given that they are familiar with his care. Believe this is appropriate due to patient will require further evaluation by the surgery and primary team taking care of his chronic wound. We will continue IV antibiotics and IV pressors and transfer patient to [facility] for management. Diagnostics interpreted by me: I personally discussed the patient's management with other clinicians: Critical Care note: This patient was unstable and required constant supervision by me for 35 minutes during their visit. The patient's condition requiring intervention included: sepsis evaluation, multiple reassessments, vasopressors. This critical care time did not include time for procedures or time spent by the physicians assistant banquet manager if they were caring for this patient. [...] DO 12/22/24 1730 Levi Mack DO 12/22/24 175 [facility] Phone: 12-22-2024 Physician Emergency department Note Pt signed out to me by Dr. Mack. Pt is awaiting transfer to for septic shock in setting of left buttock wound. Mani Dc DO 12/23/24 0115 [facility] Phone: 12-22-2024 Physician Emergency department Note I received this patient in signout who has been awaiting transfer to [facility] for septic shock in the setting of a left buttock wound requiring Levophed. I reviewed his labs and his medications and unfortunately has not been dosed with Zosyn since 1 PM. I reordered that and also timed for every 6 hours. He has been boarding in our emergency department for 16 hours now. We reached out to [facility] and they stated that there would not [...] fluid responsive. I reached back out to [facility] to get him accepted to a regular nursing floor. I spoke with Dr Benitez at [facility] who accepted the patient to the regular nursing floor but they will still not have beds until most likely later this afternoon so will plan to admit him here medically so that the can be under the supervision and care of a hospitalist. Admitted in stable condition. Mary Calvert MD 12/23/24 0629 [facility] 12-22-2024 Progress note Formatting of t his note might be different from the original. Culture reviewed. Awaiting sensitivity results [employer] Work Phone: 12-20-2024 History of Present illness [...] of malignancy- asymptomatic today. RTC per protocol Kevan La understands the plan and has no further questions. he will contact us if there are any new concerns or change in clinical picture. Sreedhar Jiang MD Attending Physician [facility] Engineering Designerplasma processing centrifuge operator [employer] [facility] [employer] documented in this encounter [facility] Work Phone: 12-19-2024 History of Present illness Narrative 12/09/24 1000 Discharge Planning Living Arrangements Other (Comment);Alone (admitted from [facility]) Support Systems Family members;Other (Comment) (SNF staff, SNF SW) Assistance Needed skilled, PT/OT Type of Residence long-term facility Do you have animals or pets at home? No Home or Post Acute Services Post acute facilities (Rehab/SNF/etc) (return to [facility]) Type of Post Acute Facility Services long-term Expected Discharge Disposition SNF Does the patient [...] and discuss discharge planning. Pt admitted from [facility]; pt reports that he's been there on and off since September. Pt confirmed demographic and insurance details. SW contact details written on the whiteboard in pt room. Return referral sent to [facility]. SW will follow. Fer Hidalgo [facility] 12/09/2024 1040 Per [facility], pt's current auth expires on 12/11. Further discharge planning pending updates from the care team. SW will follow. Fer Hidalgo [facility] 12/11/2024 1030 Pt auth for [facility] expires today. Clinical updates sent to facility. Further discharge planning pending updates from the care team. SW will follow. Fer Hidalgo [facility] 12/16/2024 0955 Once PT and OT see pt for updated notes, [facility] will initiate precert. SW will follow. Fer Hidalgo [facility] 12/17/2024 1030 PT and OT saw pt this morning. Clinicals and therapy notes sent to facility. Facility was notified to initiate precert for pt to return. Care team notified SW that pt reported he doesn't want to return to [facility]. SW met with pt to check in and he reports that he has been telling everyone for days that he would prefer not to return to [facility]. SW offered to give [...] for discharge. SW will follow. Fer Hidalgo [facility] 12/17/2024 1120 Per facility: "Auth Submitted - Pending Reference # [id number]" Liaison is confirming that there are no barriers to providing transport for pt's oncology appt on Monday. SW will follow. Fer Hidalgo [facility] 12/18/2024 1245 [facility] reports that pt insurance is asking for PT note and a wound care note. SW let the facility note that yesterday's PT note was sent to them yesterday and that a request would be put in for a new wound care note. SW will follow. Fer Barron Hidalgo [facility] 12/18/2024 1540 Wound care note sent to facility via [employer]. SW will follow. Fer Barron Hidalgo [facility] 12/19/2024 0920 Per facility: "Auth has been approved - [id number] - 12.19.24 to 12.30.2024" Care team notified. SW met with pt and let him know that he will discharge today. Transport requested in [employer] for 1100. SW asked facility to confirm that his transport for his oncology appt is set up. SW will follow. Fer VENEGASW 12/19/2024 1000 Transport confirmed for 1300 with [facility]. Care team, pt, and facility notified. Once received, number for report will be sent to bedside nurse. Pt requested to speak to a member of the care team; care team notified. SW will follow. Fer Hidalgo [facility] 12/19/2024 1015 Number for report is [phone] and was sent to bedside nurse. SW will follow. Fer Hidalgo [facility] Kevan La is a 49 y.o. male [...] medications to patient prior to discharge via [facility] pharmacy. Prescriptions will need to be sent 48-72 hours prior to discharge so that a prior authorization can be completed. Discharge date: unknown pending acute issues Patient has an appointment with Outpatient [facility] TRAVIS Talavera 12/30/24 SIGNATURE: TRAVIS Rodas PAGER/CONTACT: Contact information: [facility] Monday-Monday 8 AM-5 PM [employer] Secure chat or pager [phone]. After hours and weekends: pager [phone] SUBJECTIVE: Interval Events: Pt reports pain is [...] UNK primary Family: Supportive though live in [place] Performance status: Moderate limitations due to pain Joys/meaning/strength: Family and Bacon Understanding of health: 12/08: Demonstrates good prognostic [...] Surrogate decision maker is brother Omkar La [phone] Signature and billing: Medical complexity was high [...] of shared electronic medical record/secure chat/email or [id number]. We will continue to follow Please contact us for additional questions or concerns. SIGNATURE: TRAVIS Rodas PAGER/CONTACT: Contact information: [facility] Monday-Monday 8 AM-5 PM [employer] Secure chat or pager [phone]. After hours and weekends: pager [phone] 12/09/24 1000 Discharge Planning Living Arrangements Other (Comment);Alone (admitted from [facility]) Support Systems Family members;Other (Comment) (SNF staff, SNF SW) Assistance Needed skilled, PT/OT Type of Residence long-term facility Do you have animals or pets at home? No Home or Post Acute Services Post acute facilities (Rehab/SNF/etc) (return to [facility]) Type of Post Acute Facility Services long-term Expected Discharge Disposition SNF Does the patient [...] and discuss discharge planning. Pt admitted from [facility]; pt reports that he's been there on and off since September. Pt confirmed demographic and insurance details. SW contact details written on the whiteboard in pt room. Return referral sent to [facility]. SW will follow. Fer Hidalgo [facility] 12/09/2024 1040 Per [facility], pt's current auth expires on 12/11. Further discharge planning pending updates from the care team. SW will follow. Fer Hidalgo [facility] 12/11/2024 1030 Pt auth for [facility] expires today. Clinical updates sent to facility. Further discharge planning pending updates from the care team. SW will follow. Fer Hidalgo [facility] 12/16/2024 0955 Once PT and OT see pt for updated notes, [facility] will initiate precert. SW will follow. Fer Hidalgo [facility] 12/17/2024 1030 PT and OT saw pt this morning. Clinicals and therapy notes sent to facility. Facility was notified to initiate precert for pt to return. Care team notified SW that pt reported he doesn't want to return to [facility]. SW met with pt to check in and he reports that he has been telling everyone for days that he would prefer not to return to [facility]. SW offered to give [...] for discharge. SW will follow. Fer Hidalgo [facility] 12/17/2024 1120 Per facility: "Auth Submitted - Pending Reference # [id number]" Liaison is confirming that there are no barriers to providing transport for pt's oncology appt on Monday. SW will follow. Fer Hidalgo [facility] 12/18/2024 1245 [facility] reports that pt insurance is asking for PT note and a wound care note. SW let the facility note that yesterday's PT note was sent to them yesterday and that a request would be put in for a new wound care note. SW will follow. Fer Hidalgo [facility] 12/18/2024 1540 Wound care note sent to facility via [employer]. SW will follow. Fer Hidalgo [facility] Images from the original note were not [...] Signs/Symptoms:r/o any dysphagia. COMPARISON: None. ACCESSION NUMBER(S): [id number] ORDERING CLINICIAN: GIBSON MENDIOLA TECHNIQUE: MBSS completed. Informed verbal consent obtained prior to completion of exam. Trials of thin, nectar thick, puree, and regular solids given. Fluoroscopy time : 1.8 minutes. Total of 2800 images were provided for review. 100 mL barium contrast. COMPOSING MACHINE OPERATOR/TENDER: Makayla Dunham Phone/Pager: Secure Chat SPEECH FINDINGS: Patient Name: Kevan La : 1975 Today's Date: 12/16/24 Start Time: 845 Stop Time: 915 Time Calculation (min): 30 min Modified Barium Swallow Study completed. Informed verbal consent obtained prior to completion of exam. Trials of thin liquid, mildly thick liquid, puree, and solids were given. COMPOSING MACHINE OPERATOR/TENDER: Makayla Dunham COMPOSING MACHINE OPERATOR/TENDER Contact info: [employer] Reason for Referral: C/f aspiration/oropharyngeal dysphagia Patient Hx: Kevan La is a 49 y.o. 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 COMPOSING MACHINE OPERATOR/TENDER Frequency: 2x per week Duration: 1-2 weeks [...] given on all accounts. Treatment Provided Today: COMPOSING MACHINE OPERATOR/TENDER provided extensive education and training to pt/pt [...] further evaluation by medical specialists, as applicable. COMPOSING MACHINE OPERATOR/TENDER Impressions with Severity Rating: Pt presenting with [...] obtained, suspect within normal limits for clearance COMPOSING MACHINE OPERATOR/TENDER recommends cautious initiation of thin liquids and easy to chew diet. See additional PO intake guidelines outlined below. If pt demonstrates any change/decline in medical/mental/respiratory status please make NPO and alert COMPOSING MACHINE OPERATOR/TENDER. Will continue to follow while in acute care setting to ensure diet tolerance and use of safe swallow guidelines. MD aware of recommendations Rosenbek's Penetration Aspiration Scale Thin Liquids: 3. PENETRATION with LOW ASPIRATION risk - contrast remains above vocal cords, visible residue Huson Thick Liquids: 3. PENETRATION with LOW ASPIRATION [...] Dilan Hester. This study was interpreted at [place], [place]. MACRO: None Signed by: Jayson Abdi 12/16/2024 4:54 PM Dictation workstation: [id number] Oncology Hx Diagnosis: Squamous cell carcinoma of [...] their tolerance level. Patient agreed to advise knitting machine fixer. The knitting machine fixer counseled the patient on the risks of [...] Signs/Symptoms:r/o any dysphagia. COMPARISON: None. ACCESSION NUMBER(S): [id number] ORDERING CLINICIAN: GIBSON MENDIOLA TECHNIQUE: MBSS completed. Informed verbal consent obtained prior to completion of exam. Trials of thin, nectar thick, puree, and regular solids given. Fluoroscopy time : 1.8 minutes. Total of 2800 images were provided for review. 100 mL barium contrast. COMPOSING MACHINE OPERATOR/TENDER: Makayla Dunham Phone/Pager: Secure Chat SPEECH FINDINGS: Patient Name: Kevan La : 1975 Today's Date: 12/16/24 Start Time: 845 Stop Time: 915 Time Calculation (min): 30 min Modified Barium Swallow Study completed. Informed verbal consent obtained prior to completion of exam. Trials of thin liquid, mildly thick liquid, puree, and solids were given. COMPOSING MACHINE OPERATOR/TENDER: MINDY Camp Contact info: [employer] Reason for Referral: C/f aspiration/oropharyngeal dysphagia Patient Hx: Kevan La is a 49 y.o. 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 COMPOSING MACHINE OPERATOR/TENDER Frequency: 2x per week Duration: 1-2 weeks [...] given on all accounts. Treatment Provided Today: COMPOSING MACHINE OPERATOR/TENDER provided extensive education and training to pt/pt [...] further evaluation by medical specialists, as applicable. COMPOSING MACHINE OPERATOR/TENDER Impressions with Severity Rating: Pt presenting with [...] obtained, suspect within normal limits for clearance COMPOSING MACHINE OPERATOR/TENDER recommends cautious initiation of thin liquids and easy to chew diet. See additional PO intake guidelines outlined below. If pt demonstrates any change/decline in medical/mental/respiratory status please make NPO and alert COMPOSING MACHINE OPERATOR/TENDER. Will continue to follow while in acute care setting to ensure diet tolerance and use of safe swallow guidelines. aware of recommendations Rosenирина's Penetration Aspiration Scale Thin Liquids: 3. PENETRATION with LOW ASPIRATION risk - contrast remains above vocal cords, visible residue Huson Thick Liquids: 3. PENETRATION with LOW ASPIRATION [...] Dilan Hester. This study was interpreted at [place], [place]. MACRO: None Signed by: Jayson Abdi 12/16/2024 4:54 PM Dictation workstation: [id number] ECG 12 Lead Result Date: 12/16/2024 Normal [...] 12/06/2024 and 11/19/2024 CT examinations. ACCESSION NUMBER(S): [id number] ORDERING CLINICIAN: GIBSON MENDIOLA TECHNIQUE: Multiplanar multisequence [...] Kong Armijo 12/12/2024 1:33 PM Dictation workstation: [id number] MR femur left wo IV contrast Result Date: 12/12/2024 Interpreted By: Kong Armijo and Mason Montague STUDY: MRI of the left femur with and without contrast dated 12/10/2024. 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 History of chronic hidradenitis suppurativa. COMPARISON: Correlation is made with 12/06/2024 and 11/19/2024 CT examinations. ACCESSION NUMBER(S): [id number] ORDERING CLINICIAN: TOYA RUBIO TECHNIQUE: Multiplanar multisequence MRI of the left femur was performed with and without intravenous gadolinium based contrast. FINDINGS: No images were obtained as the patient was unable to cooperate for the exam. No images were obtained as the patient was unable to cooperate for the exam. MACRO: None Signed by: Kong Armijo 12/12/2024 1:18 PM Dictation workstation: [id number] CT pelvis w IV contrast Result Date: [...] carcinoma. COMPARISON: CT pelvis 11/08/2024. ACCESSION NUMBER(S): [id number] ORDERING CLINICIAN: CLAUDIO PLUNKETT TECHNIQUE: CT of the chest, abdomen, and pelvis was performed. Contiguous axial images were obtained at 3 mm slice thickness through the chest, abdomen and pelvis. Coronal and sagittal reconstructions at 3 mm slice thickness were performed. 90 ML of Omnipaque 350 was administered intravenously without immediate complication. FINDINGS: CHEST: LUNG/PLEURA/LARGE AIRWAYS: Ryze-eg-xkcoxukw upper lobe predominant centrilobular and paraseptal emphysema. [...] Attention on follow-up examinations is recommended. 5. Tsxe-ctufosr-yrqa-right skin thickening extending from the sacral region to the proximal thigh, in keeping with patient's background of hydradenitis suppurativa. 6. Yojd-yb-kuahnjjs upper lobe predominant centrilobular and paraseptal emphysema. I personally reviewed the images/study and I agree with the findings as stated by Elenita Munroe MD (PGY-2). This study was interpreted at [facility], [place], [place]. MACRO: None Signed by: Ravin Hyatt 11/19/2024 4:54 PM Dictation workstation: [id number] Assessment/Plan Assessment & Plan Gluteal abscess [facility] Integrative Medicine Symptom Management program offers multi-disciplinary [...] (available on ). Music therapy, art therapy, ad trafficker and pet therapy offered to pt, pt declined; pt stated the grain mixer has been following. Left gluteal pain: pain related to malignancy, lesions Pain is well-controlled Defer to supportive oncology team for adequate PO/IV pain regimen Recommend integrative therapy modalities as pt allows: -Acupuncture; provided pt education today. Pt declined services, requesting follow up when next available -Acupresspeña rivers -Gentle bodywork and stretching as tolerated -Art therapy -Music therapy -Fur Clipper -Pet therapy Altered Mood: Anxiety and/or depression r/t health concerns History of anxiety/depression -Recommend integrative medicine modalities as listed above Mindfulness Brittney: AMDtx, Calm, Headspace, Insight Timer Guided Imagery Meditation (15 min in the morning) - consider mindfulness (Mindfulness based Stress Reduction) Apps such as CALM or Headspace Deep breathing: Alternate nostril breathing and Deep abdominal breathing (5 min) in the morning [facility] - Guided Meditation Thank you for allowing us to participate in the care of this patient. Integrative Medicine Team will continue to follow as needed. Please contact team with any questions or concerns. TRAVIS Patel (available by [place]) [facility] Inpatient Integrative Medicine I spent 45 minutes in the care of this patient which included chart review, interviewing patient/family, discussion with primary team, coordination of care, and documentation. Medical Decision Making was high level due to high complexity of problems, extensive data review, and high risk of management/treatment. 12/09/24 1000 Discharge Planning Living Arrangements Other (Comment);Alone (admitted from [facility]) Support Systems Family members;Other (Comment) (SNF staff, SNF SW) Assistance Needed skilled, PT/OT Type of Residence long-term facility Do you have animals or pets at home? No Home or Post Acute Services Post acute facilities (Rehab/SNF/etc) (return to [facility]) Type of Post Acute Facility Services long-term Expected Discharge Disposition SNF Does the patient need discharge transport arranged? Yes RoundTrip coordination needed? Yes Has discharge transport been arranged? No Patient Choice Provider Choice list and [facility] website (https://medicare.gov/care-compar e#search) for post-acute Quality and Resource Measure Data were provided and reviewed with: Patient Patient / Family choosing to utilize agency / facility established prior to hospitalization Yes SW met with pt to introduce role and discuss discharge planning. Pt admitted from [facility]; pt reports that he's been there on and off since September. Pt confirmed demographic and insurance details. SW contact details written on the whiteboard in pt room. Return referral sent to [facility]. SW will follow. Fer Hidalgo [facility] 12/09/2024 1040 Per [facility], pt's current auth expires on 12/11. Further discharge planning pending updates from the care team. SW will follow. Fer [facility]idal[facility] 12/11/2024 1030 Pt auth for [facility] expires today. Clinical updates sent to facility. Further discharge planning pending updates from the care team. SW will follow. Fer [facility] 12/16/2024 0955 Once PT and OT see pt for updated notes, [facility] will initiate precert. SW will follow. Fer [facility] 12/17/2024 1030 PT and OT saw pt this morning. Clinicals and therapy notes sent to facility. Facility was notified to initiate precert for pt to return. Care team notified SW that pt reported he doesn't want to return to [facility]. SANTO met with pt to check in and he reports that he has been telling everyone for days that he would prefer not to return to [facility]. SANTO offered to give pt a SNF choice list. After more conversation, pt decided to return to the SNF because his things are there and because he does not want to delay his treatment any further. SANTO let him know that the facility can assist him in transferring to another facility. Care team updated. SANTO sent the SNF pt's goldenrod with his appt information. Pt is medically ready for discharge. SW will follow. Fer Hidal[facility] 12/17/2024 1120 Per facility: "Auth Submitted - Pending Reference # [id number]" Liaison is confirming that there are no barriers to providing transport for pt's oncology appt on Monday. SW will follow. Fer Hidal[facility] Physical Therapy Treatment Patient Name: Kevan La Today's Date: 12/17/2024 Room: [address] [place] [address] Time Calculation Start Time: 938 Stop Time: 1002 Time Calculation (min): 23 min Assessment/Plan PT [...] Decreased tolerance for upright activites Outcome Measures: [facility] Basic Mobility Turning from your back to [...] 12/23/24 Pain - Adult Cosigned by Siva Beach PT at 12/17/2024 10:36 AM EDT Occupational Therapy Occupational Therapy Treatment Name: Kevan La : 1975 Date: 12/17/24 Room: [address] [place] [address] Time Calculation Start Time: 850 Stop Time: 09 Time Calculation (min): 11 min Assessment: OT [...] Comments: BUE WFL via ADLs Outcome Measures: [facility] Daily Activity Putting on and taking off [...] 01/03/25 12/17/24 at 10:18 AM Manuela Elmore OTR/Kamila [phone] Images from the original note were not [...] Signs/Symptoms:r/o any dysphagia. COMPARISON: None. ACCESSION NUMBER(S): [id number] ORDERING CLINICIAN: GIBSON MENDIOLA TECHNIQUE: MBSS completed. Informed verbal consent obtained prior to completion of exam. Trials of thin, nectar thick, puree, and regular solids given. Fluoroscopy time : 1.8 minutes. Total of 2800 images were provided for review. 100 mL barium contrast. COMPOSING MACHINE OPERATOR/TENDER: Makayla Dunham Phone/Pager: [employer] SPEECH FINDINGS: Patient Name: Kevan La : 1975 Today's Date: 12/16/24 Start Time: 845 Stop Time: 915 Time Calculation (min): 30 min Modified Barium Swallow Study completed. Informed verbal consent obtained prior to completion of exam. Trials of thin liquid, mildly thick liquid, puree, and solids were given. COMPOSING MACHINE OPERATOR/TENDER: MINDY Camp Contact info: [employer] Reason for Referral: C/f aspiration/oropharyngeal dysphagia Patient Hx: Kevan La is a 49 y.o. 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 COMPOSING MACHINE OPERATOR/TENDER Frequency: 2x per week Duration: 1-2 weeks [...] given on all accounts. Treatment Provided Today: COMPOSING MACHINE OPERATOR/TENDER provided extensive education and training to pt/pt [...] further evaluation by medical specialists, as applicable. COMPOSING MACHINE OPERATOR/TENDER Impressions with Severity Rating: Pt presenting with [...] obtained, suspect within normal limits for clearance COMPOSING MACHINE OPERATOR/TENDER recommends cautious initiation of thin liquids and easy to chew diet. See additional PO intake guidelines outlined below. If pt demonstrates any change/decline in medical/mental/respiratory status please make NPO and alert COMPOSING MACHINE OPERATOR/TENDER. Will continue to follow while in acute care setting to ensure diet tolerance and use of safe swallow guidelines. MD aware of recommendations Rosenbek's Penetration Aspiration Scale Thin Liquids: 3. PENETRATION with LOW ASPIRATION risk - contrast remains above vocal cords, visible residue Huson Thick Liquids: 3. PENETRATION with LOW ASPIRATION [...] Dilan Hester. This study was interpreted at [facility], [place], [place]. MACRO: None Signed by: Jayson Abdi 12/16/2024 4:54 PM Dictation workstation: [id number] Oncology Hx Diagnosis: Squamous cell carcinoma of [...] in the note. Music Therapy Note Kevan Bessie Therapy Session Referral Type: New referral this admission Visit Type: Follow-up visit Session Start Time: 1346 Session End Time: 1431 Intervention Delivery: In-person Conflict of Service: None [...] Communication Note Patient Name: Kevan La Department: [facility] Room: [address] [place] [address] Today's Date: 12/16/2024 Discipline: Physical Therapy PT Missed Visit: Yes Missed Visit Reason: Missed Visit Reason: Patient sleeping (attempted twice and pt sleeping . would not wake up to name . Will reattempt as schedule permits.) Missed Time: Attempt Comment: Occupational Therapy Therapy Communication Note Patient Name: Kevan La Department: [facility] Room: [address] [place] [address] Today's Date: 12/16/2024 Discipline: Occupational Therapy OT Missed Visit: Yes Missed Visit Reason: Patient sleeping (Attempt 2x this AM; pt in sound sleep/declines OT this AM; will reattempt as schedule permits) Missed Time: Attempt Janny Andres (OTR/L, OTD) Inpatient Occupational Therapist Rehab Office: [phone] 12/09/24 1000 Discharge Planning Living Arrangements Other (Comment);Alone (admitted from [facility]) Support Systems Family members;Other (Comment) (SNF staff, SNF SW) Assistance Needed skilled, PT/OT Type of Residence long-term facility Do you have animals or pets at home? No Home or Post Acute Services Post acute facilities (Rehab/SNF/etc) (return to [facility]) Type of Post Acute Facility Services long-term Expected Discharge Disposition SNF Does the patient need discharge transport arranged? Yes RoundTrip coordination needed? Yes Has discharge transport been arranged? No Patient Choice Provider Choice list and [facility] website (https://medicare.gov/care-compar e#search) for post-acute Quality and Resource Measure Data were provided and reviewed with: Patient Patient / Family choosing to utilize agency / facility established prior to hospitalization Yes SW met with pt to introduce role and discuss discharge planning. Pt admitted from [facility]; pt reports that he's been there on and off since September. Pt confirmed demographic and insurance details. SW contact details written on the whiteboard in pt room. Return referral sent to [facility]. SW will follow. Fer Hidalgo [facility] 12/09/2024 [address] [facility], pt's current auth expires on 12/11. Further discharge planning pending updates from the care team. SW will follow. Fer Hidalgo [facility] 12/11/2024 1030 Pt auth for [facility] gareth Malik expires today. Clinical updates sent to facility. Further discharge planning pending updates from the care team. SW will follow. Fer Hidalgo [facility] 12/16/2024 0955 Once PT and OT see pt for updated notes, [facility] gareth Malik will initiate precert. SW will follow. Fer Hidalgo [facility] SUPPORTIVE AND PALLIATIVE ONCOLOGY INPATIENT FOLLOW-UP SERVICE DATE: 12/16/24 Updates and Recommendations (12/16/24): Change gabapentin 300mg PO BID Continue scheduled methadone 10mg [id number]--[id number] 12/12/24, eligible for increase 12/17/24 Discontinue bisacodyl PRN Start scheduled bisacodyl 10mg DC once daily Consider one time enemas as [...] 2mg PO TID Continue scheduled methadone 10mg [id number]--jqcctfz 12/12/24, eligible for increase 12/17/24 Continue oxycodone [...] Discontinue bisacodyl PRN Start scheduled bisacodyl 10mg DC once daily Consider one time enemas as needed, per primary discretion [effective last admission at resolving constipation] Goal to have BM without straining q48-72h, adjust regimen as needed Encourage mobility as tolerated, PT/OT following Disposition: Please start the process of having prior authorization with meds to beds deliver medications to patient prior to discharge via [facility] pharmacy. Prescriptions will need to be sent 48-72 hours prior to discharge so that a prior authorization can be completed. Discharge date pending resolution of acute hospital issues. Patient has an appointment with outpatient Supportive Oncology with Astrid Hawley CNP, on 12/30/24. SIGNATURE: TRAVIS Huizar PAGER/CONTACT: Contact information: Supportive and Palliative Oncology Monday-Monday 8 AM-5 PM [employer] Secure chat or pager [phone]. After hours and weekends: pager [phone] == SUBJECTIVE: Pain Assessment: Location: Left gluteus, LLE Duration: Constant Characteristics: Ratin/10, "it's alright" Descriptors: Throbbing, sharp, and burning Aggravating: Movement, pressure Relieving: Analgesics, positioning, and modifying activity Interference with Function: Somewhat Opioid Requirements Past 24h opioid requirements: (12/15-12/16, 5740-8848) methadone 10mg x 3 = 30mg oxycodone [...] of Care/Advance Care Planning: (Per Emile Segovia, PLANTING MATERIAL UNLOADER's, note on 12/08/24) Patient's current clinical condition, including diagnosis, prognosis, and management plan, and goals of care were discussed. Life limiting disease: SCC of UNK primary Family: Supportive though live in [place] Performance status: Moderate limitations due to pain Joys/meaning/strength: Family and Bacon Understanding of health: Demonstrates good prognostic understanding [...] None Decision maker: Surrogate decision maker is reginoerOmkar ([phone]) == Signature and billing: Medical complexity was [...] of shared electronic medical record/secure chat/email or [id number]. We will continue to follow. Please contact us for additional questions or concerns. SIGNATURE: TRAVIS Huizar PAGER/CONTACT: Contact information: [facility] Palliative Oncology Monday-Monday 8 AM-5 PM, [employer] Secure chat or pager [phone]. After hours and weekends: pager [phone] Images from the original note were not [...] days course) - MBS complete, no concerns. COMPOSING MACHINE OPERATOR/TENDER recommends thin and easy to chew - [...] affecting the LLE who was transferred to [facility] due to concerns for worsening infection in [...] region. No s/s of aspiration at bedside. COMPOSING MACHINE OPERATOR/TENDER recommends thin liquid and easy to chew [...] 01/15/25 Status: Goal Initiated this date Plan: COMPOSING MACHINE OPERATOR/TENDER Services Indicated: Yes Frequency: 2x week Discussed POC with patient COMPOSING MACHINE OPERATOR/TENDER - OK to Discharge Pain: 0-10 0 [...] 12/06/2024 and 11/19/2024 CT examinations. ACCESSION NUMBER(S): [id number] ORDERING CLINICIAN: GIBSON MENDIOLA TECHNIQUE: Multiplanar multisequence [...] Kong Armijo 12/12/2024 1:33 PM Dictation workstation: [id number] Oncology Hx Diagnosis: Squamous cell carcinoma of [...] Patient and plan discussed with attending physician. Solis, SHANDA PGY2 I have seen and evaluated the [...] OT Treatment Patient Name: Kevan La Department: [facility] Room: [address] [place] [address] Today's Date: 12/13/2024 Time Calculation Start Time: [...] guard Trials/Comments 1: 3x throughout session; pt demos safe body mechanics Transfers 2 Transfer From 2: Bed to Transfer to 2: Chair with arms (in bathroom) Technique 2: (Ambulatory) Transfer Device 2: (no AD) Transfer Level of Assistance 2: Contact guard Outcome Measures: [facility] Daily Activity Putting on and taking off [...] (OTR/L, OTD) Inpatient Occupational Therapist Rehab Office: [phone] Images from the original note were not [...] 12/06/2024 and 11/19/2024 CT examinations. ACCESSION NUMBER(S): [id number] ORDERING CLINICIAN: GIBSON MENDIOLA TECHNIQUE: Multiplanar multisequence [...] Kong Armijo 12/12/2024 1:33 PM Dictation workstation: [id number] Oncology Hx Diagnosis: Squamous cell carcinoma of [...] plan was for cemiplimab 12/[address] Jiagn Plan: - Zofran and compazine for nausea [...] bit brighter,today . Eating lunch and playing Yostrorie Hip lesion unchanged Antibiotics amoxicillin-pot clavulanate - [...] medications to patient prior to discharge via [facility] pharmacy. Prescriptions will need to be sent 48-72 hours prior to discharge so that a prior authorization can be completed. Discharge date: unknown pending acute issues Patient has an appointment with Outpatient Supportive Oncology TRAVIS Talavera 12/17/24 SIGNATURE: TRAVIS Rodas PAGER/CONTACT: Contact information: Supportive and Palliative Oncology Monday-Monday 8 AM-5 PM [employer] Secure chat or pager [phone]. After hours and weekends: pager [phone] SUBJECTIVE: Interval Events: Pt was able to [...] limitations due to pain Joys/meaning/strength: Family and Bacon Understanding of health: 12/08: Demonstrates good prognostic [...] Surrogate decision maker is brother Omkar La [phone] Signature and billing: Medical complexity was high [...] of shared electronic medical record/secure chat/email or [id number]. We will continue to follow Please contact us for additional questions or concerns. SIGNATURE: TRAVIS Rodas PAGER/CONTACT: Contact information: [facility]ive [facility] Palliative Oncology Monday-Monday 8 AM-5 PM [facility] Secure chat or pager [phone]. After hours and weekends: pager [phone] Images from the original note were not [...] 12/06/2024 and 11/19/2024 CT examinations. ACCESSION NUMBER(S): [id number] ORDERING CLINICIAN: GIBSON MENDIOLA TECHNIQUE: Multiplanar multisequence [...] Kong Armijo 12/12/2024 1:33 PM Dictation workstation: [id number] MR femur left wo IV contrast Result Date: 12/12/2024 Interpreted By: Kong Armijo, and Mason Montague STUDY: MRI of the left femur with and without contrast dated 12/10/2024. 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 History of chronic hidradenitis suppurativa. COMPARISON: Correlation is made with 12/06/2024 and 11/19/2024 CT examinations. ACCESSION NUMBER(S): [id number] ORDERING CLINICIAN: TOYA RUBIO TECHNIQUE: Multiplanar multisequence MRI of the left femur was performed with and without intravenous gadolinium based contrast. FINDINGS: No images were obtained as the patient was unable to cooperate for the exam. No images were obtained as the patient was unable to cooperate for the exam. MACRO: None Signed by: Kong Armijo 12/12/2024 1:18 PM Dictation workstation: [id number] Oncology Hx Diagnosis: Squamous cell carcinoma of [...] discharge (no plans for IV abx at hi) #Invasive SCC # Left Gluteus lesions ::biopsy [...] weeks ago s/p I&D, BCx with marta roxannesandie s/p Unasyn complete 10/28/2024 ::CT 12/06: Large [...] MATHEW and flexed foward posture) Outcome Measures: [facility] Basic Mobility Turning from your back to [...] Education Documentation Body Mechanics, taught by Latricia Yousif PT at 12/11/2024 2:04 PM. Learner: Patient Readiness: Acceptance Method: Explanation Response: Verbalizes Understanding Precautions, taught by Latricia Yousif PT at 12/11/2024 2:04 PM. Learner: Patient Readiness: Acceptance Method: Explanation Response: Verbalizes Understanding Mobility Training, taught by Latricia Yousif PT at 12/11/2024 2:04 PM. Learner: Patient [...] 2:05 PM Latricia Yousif, PT Rehab Office: [phone] Spiritual Care Visit Spiritual Care Request Spiritual Care Annotation Annotation: Piano Sounding Board Matcher visited with the patient, who is known to this Piano Sounding Board Matcher from prior admissions. Patient shared he was feeling very tired and not in the mood to talk. Patient requested a Bible and a follow-up visit. Piano Sounding Board Matcher was able to bring a Bible for the patient. Piano Sounding Board Matcher will follow-up tomorrow. Please reach out with any needs/concerns. Rev. Mack Schmitz, Supportive Oncology Piano Sounding Board Matcher 12/09/24 1000 Discharge Planning Living Arrangements Other (Comment);Alone (admitted from [facility]) Support Systems Family members;Other (Comment) (SNF staff, SNF SW) Assistance Needed skilled, PT/OT Type of Residence long-term facility Do you have animals or pets at home? No Home or Post Acute Services Post acute facilities (Rehab/SNF/etc) (return to [facility]) Type of Post Acute Facility Services long-term Expected Discharge Disposition SNF Does the patient need discharge transport arranged? Yes RoundTrip coordination needed? Yes Has discharge transport been arranged? No Patient Choice Provider Choice list and [facility] website (https://medicare.gov/care-compar e#search) for post-acute Quality and Resource Measure Data were provided and reviewed with: Patient Patient / Family choosing to utilize agency / facility established prior to hospitalization Yes SW met with pt to introduce role and discuss discharge planning. Pt admitted from [facility]; pt reports that he's been there on and off since September. Pt confirmed demographic and insurance details. SW contact details written on the whiteboard in pt room. Return referral sent to [facility]. SW will follow. Fer CORTES 12/09/2024 1040 Per [facility], pt's current auth expires on 12/11. Further discharge planning pending updates from the care team. SW will follow. Fer CORTES 12/11/2024 1030 Pt auth for [facility] expires today. Clinical updates sent to facility. Further discharge planning pending updates from the care team. SW will follow. Fer CORTES Kevan La is a 49 y.o. male [...] from last 72 hours Lab Units 12/10/24 0612/09/24 0512/08/24 06 WBC AUTO x10*3/uL 11.5* 10.2 11.5* HEMOGLOBIN g/dL 8.1* 8.3* 7.8* HEMATOCRIT % 26.7* 25.6* 26.1* PLATELETS AUTO x10*3/uL 663* 650* 595* NEUTROS PCT AUTO % 66.1 65.0 70.8 LYMPHS PCT AUTO % 16.1 17.8 11.7 MONOS PCT AUTO % 12.4 10.2 11.9 EOS PCT AUTO % 4.5 4.8 4.8 Results from last 72 hours Lab Units 12/10/24 0612/09/24 0512/08/24 06 SODIUM mmol/L 139 140 140 POTASSIUM mmol/L 4.1 3.6 3.8 CHLORIDE mmol/L 102 104 106 CO2 mmol/L 29 25 26 BUN mg/dL 11 15 17 CREATININE mg/dL 1.28 1.20 1.33* GLUCOSE mg/dL 89 92 112* CALCIUM mg/dL 10.1 9.8 9.4 ANION GAP mmol/L 12 15 12 EGFR mL/min/1.73m*2 68 73 65 PHOSPHORUS mg/dL 3.5 3.4 -- Results from last 72 hours Lab Units 12/10/2460412/09/2455412/08/24 06 ALK PHOS U/L -- -- 48 BILIRUBIN [...] Visit Type: Follow-up visit Session Start Time: 1441 Session End Time: 1445 Intervention Delivery: In-person Conflict of Service: Working [...] weeks ago s/p I&D, BCx with slackia roxanneigua s/p Unasyn complete 10/28/2024 ::CT 12/06: Large [...] Visit Type: New visit Session Start Time: 1407 Intervention Delivery: In-person Conflict of Service: Working with other staff Treatment/Interventions Art Therapy Interventions: Assessment, Education/instruction Narrative Assessment Detail: At time of visit Pt was with a Provider. ATR will follow up with Pt another time to introduce and assess services Education Documentation No documentation found. Occupational Therapy Occupational Therapy Evaluation Patient Name: Kevan La Today's Date: 12/09/2024 Room: [address] [place] [address] Time Calculation Start Time: 1509 Stop Time: [...] and hospital stays. Prior Function: Level of Bacon: Needs assistance with ADLs, Needs assistance with [...] Within Functional Limits, , and Outcome Measures: [facility] Daily Activity Putting on and taking off [...] 3:51 PM Shereen Santoyo OT Rehab Office: [phone] Physical Therapy Physical Therapy Evaluation & Treatment Patient Name: Kevan La Department: [facility] Room: [address] [place] [address] Today's Date: 12/09/2024 Time Calculation Start Time: [...] Home Living: Home Living Type of Home: Alf facility Home Living Comments: Pt reports he has been in hospital or SNF since Prior Level of Function: Prior Function Per Pt/Caregiver Report Level of Bacon: Needs assistance with ADLs, Needs assistance with homemaking (Assist for LE dressing and bathing) Ambulatory Assistance: Needs assistance (Using FWW. 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 Outcome Measures: [facility] Basic Mobility Turning from your back to [...] Education Documentation Body Mechanics, taught by Kirsten Zhagn PT at 12/09/2024 1:22 PM. Learner: Patient [...] Planning Living Arrangements Other (Comment);Alone (admitted from [facility]) Support Systems Family members;Other (Comment) (SNF staff, SNF SW) Assistance Needed skilled, PT/OT Type of Residence long-term facility Do you have animals or pets at home? No Home or Post Acute Services Post acute facilities (Rehab/SNF/etc) (return to [facility]) Type of Post Acute Facility Services long-term Expected Discharge Disposition SNF Does the patient need discharge transport arranged? Yes RoundTrip coordination needed? Yes Has discharge transport been arranged? No Patient Choice Provider Choice list and [facility] website (https://medicare.gov/care-compar e#search) for post-acute Quality and Resource Measure Data were provided and reviewed with: Patient Patient / Family choosing to utilize agency / facility established prior to hospitalization Yes SW met with pt to introduce role and discuss discharge planning. Pt admitted from [facility]; pt reports that he's been there on and off since September. Pt confirmed demographic and insurance details. SW contact details written on the whiteboard in pt room. Return referral sent to [facility]. SW will follow. Fer CORTES 12/09/2024 1040 Per [facility], pt's current auth expires on 12/11. Further discharge planning pending updates from the care team. SW will follow. Fer VENEGASW Physical Therapy Therapy Communication Note Patient Name: Kevan La Department: [facility] Room: [address] [place] [address] Today's Date: 12/09/2024 Discipline: Physical Therapy PT [...] with marta powers s/p Unasyn complete 10/28/2024 ::CT 12/06: Large [...] on board. Gibson Mendiola MD, PhD Hematology/Oncology [facility] Medication History Review Kevan La is a 49 y.o. male admitted for Gluteal abscess. Pharmacy reviewed the patient's ynjkv-mm-zkkqpvnpq medications and allergies for accuracy. Medications ADDED: None Medications CHANGED: Ibuprofen every 6 hours to every 4 hours Medications REMOVED: Vitamin D3 10,000 units The list below reflects the updated YARD SPOTTER list. Prior to Admission Medications Prescriptions Last [...] not taking: Reported on 12/08/2024 Not on SNF med list as of 12/06 (not in [...] declines M2B at discharge. Sources: SNF -- [facility] Heme/onc AVS from 11/29 Additional Comments: YARD SPOTTER medication list updated per [facility] SNF medication list Medication flow sheet from 11/08-12/06 Please review additional comments above for additional comments Connie Choi PharmD Transitions of Care Pharmacist 12/08/24 Secure Chat preferred If no response call [phone] or [employer] "Med Rec" 12/08/24 1221 Discharge Planning Living Arrangements Other (Comment) (Currently at [facility]) Support Systems Family members (Family all lives in [place], so supportive but distant) Type of Residence long-term facility Home or Post Acute Services Post acute facilities (Rehab/SNF/etc) Type of Post Acute Facility Services long-term Expected Discharge Disposition SNF Patient Choice Patient / Family choosing to utilize agency / facility established prior to hospitalization Yes Met with patient bedside, he is currently from [facility] in [place]; where he admitted Medicaid pending in 11/12; since then does have current insurance. Admit for worsening wound/gluteal fluid collection ; started on IVAB There were plans in place for oncology, will need to confirm plans closer to [place] to relay to SNF. Socially patient is worried about ever being able to return to his home, which he states is not his own, but the owners may have to sell. All of his belongings are there; we talked about seeing if family coming to assist is an option, to which he states they all live in [place]. This poem writer suggests as well talk to the SW/CM at the SNF and coordinating with a [facility] Pencil Sorter, that there may be local resources to [...] 12/09. This dosing regimen is predicted by Insight[employer] to result in the following pharmacokinetic parameters: Loading dose: N/A Regimen: 1250 mg IV every 24 hours. Start time: 10:27 on 12/09/2024 Exposure target: AUC24 (range)400-600 mg/L.hr [id number]: 570 mg/L.hr AUC24,ss: 549 mg/L.hr Probability of [...] needs, clinical response, and signs/symptoms of toxicity. Jazlyn Macias PharmD Kevan La is a 49 y.o. male on day 1 of admission presenting with Gluteal abscess. Kevan La is a 49 y.o. male with refractory hidradenitis supprativa (HS) not responding to povorcitinib (RCT candidate), apremilast, isotretinoin, adalimumab, infliximab, moxifloxacin/metronidazole, minocyclin, clindamycin, rifampin, augmentin and doxycycline, and invasive SCC who is returning to [facility] 12/08/2024 as a transfer from [facility] regarding gluteal fluid collection. 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 November 29 initial diagnosis December 09: To start chemotherapy with cemiplimab, 21-day cycles Previous Hospital Course Notably, the pt was admitted at [facility] 11/10-11/27 after her arrived from [facility] and CT revealed large ulcerative wound at [...] Subjective Today he presents as transfer from [facility] (where he was brought to from SNF) with reports that his wound looks worse. [...] and invasive SCC who is returning to [facility] 11/10/2024 as a transfer from [facility] regarding gluteal wound with worsening odor and [...] SCC of the L hip transferred to [facility] after presenting to [facility] ED with worsening pain found to have gluteal fluid collection. Unclear whether abscess vs necrosis. MRI to further evaluate. Adjust antiemetic regimen for ongoing nausea Toya Rubio MD Staff, Gastrointestinal Medical Oncology [facility] Vancomycin Dosing by Pharmacy- INITIAL Kevan [...] on 12/07/2024 Exposure target: AUC24 (range)400-600 mg/L.hr [id number]: 419 mg/L.hr AUC24,ss: 556 mg/L.hr Probability of [...] Carin Kim PharmD documented in this encounter [facility] Work Phone: 12-19-2024 Miscellaneous Notes The patient's [...] next dressing change Outcome: Progressing Flowsheets (Taken 12/18/20241226) Decreased wound size/increased tissue granulation at next [...] dressing change Outcome: Progressing Flowsheets (Taken 12/17/2024 0559) Decreased wound size/increased tissue granulation at next [...] Goal: Prevent/minimize sheer/friction injuries 12/15/2024 1037 by Critsiana Simon RN Flowsheets (Taken 12/15/2024 1037) Prevent/minimize [...] Monitor/record intake including meals Reassess MST if hotel office manager not consulted 12/15/2024 1037 by Cristiana Simon RN Outcome: Progressing Flowsheets (Taken 12/15/2024 1037) Promote/optimize nutrition: Assist with feeding Discuss with provider if NPO > 2 days Offer water/supplements/favorite foods Consume > 50% meals/supplements Monitor/record intake including meals Reassess MST if hotel office manager not consulted Goal: Promote skin healing 12/15/2024 1037 by Cristiana Simon RN Flowsheets (Taken 12/15/2024 1037) Promote skin healing: Assess skin/pad under line(s)/device(s) Ensure correct size (line/device) and apply per usability architect instructions Protective dressings over bony prominences Rotate device position/do not position patient on device Turn/reposition every 2 hours/use positioning/transfer devices 12/15/2024 1037 by Cristiana Simon RN Outcome: Progressing Flowsheets (Taken 12/15/2024 1037) Promote skin healing: Assess skin/pad under line(s)/device(s) Ensure correct size (line/device) and apply per usability architect instructions Protective dressings over bony prominences Rotate [...] and invasive SCC who is returning to [facility] 11/10/2024 as a transfer from [facility] regarding gluteal fluid collection. Notably, the pt was admitted at [facility] 11/10-11/27 after her arrived from [facility] and CT revealed large ulcerative wound at [...] pt restarted on zosyn. Was discharged to [facility] on Augmentin for one month. Today he presents as transfer from [facility] (where he was brought to from [facility]) with reports that his wound looks worse. [...] 12/06/2024 [facility]EVAN [facility] 1975 [id number] Exam Date/Time: 12/06/2024 12:46 Procedure: CT PELVIS [...] and invasive SCC who is returning to [facility] 11/10/2024 as a transfer from [facility] regarding gluteal wound with worsening odor and [...] Prevent/manage excess moisture Outcome: Progressing Flowsheets (Taken 12/07/20241641) Prevent/manage excess moisture: Cleanse incontinence/protect with barrier cream Monitor for/manage infection if present Goal: Prevent/minimize sheer/friction injuries Outcome: Progressing Flowsheets (Taken 12/07/20241641) Prevent/minimize sheer/friction injuries: HOB 30 degrees or less Turn/reposition every 2 hours/use positioning/transfer devices Use pull sheet Goal: Promote/optimize nutrition Outcome: Progressing Flowsheets (Taken 12/07/20241641) Promote/optimize nutrition: Consume > 50% meals/supplements Goal: Promote skin healing Outcome: Progressing Flowsheets (Taken 12/07/20241641) Promote skin healing: Turn/reposition every 2 hours/use [...] safe from injury documented in this encounter [facility] Work Phone: 04-02-2025 Consult note Formatting of th is note [...] defined 12/18/24 0854 Drainage Description Clear 12/18/24 145 Drainage Amount Scant 12/18/24 145 Dressing Silicone border dressing 12/18/24 145 Dressing Changed Changed 12/18/241456 Dressing Status Clean 12/18/241456 Wound Team Summary Assessment: Continue current skin [...] Integrative Hem/Onc Consult performed by: Cristiana Evans APRN-PLANTING MATERIAL UNLOADER Consult ordered by: Mack Frias MD Reason [...] before oncologic resection. Integrative hematology/oncology consulted by [facility] oncology team for non-pharmacological symptom management of depression and pain. Pt resting in bed at time of exam, no family at bedside. Integrative hematology/oncology consult team introduced to pt. Non-pharmacological symptom management interventions reviewed, including: Reiki, meditation, mindfulness practices, guided imagery, as well as acupuncture, acupressure, and gentle bodywork. Pt declined integrative heme/onc services. Music therapy, art therapy, ad trafficker and pet therapy offered to pt, pt declined; pt stated the grain mixer has been following. Information obtained from chart [...] 12/06/2024 and 11/19/2024 CT examinations. ACCESSION NUMBER(S): [id number] ORDERING CLINICIAN: GIBSON MENDIOLA TECHNIQUE: Multiplanar multisequence [...] Kong Armijo 12/12/2024 1:33 PM Dictation workstation: [id number] MR femur left wo IV contrast Result Date: 12/12/2024 Interpreted By: Kong Armijo, and Mason Montague STUDY: MRI of the left femur with and without contrast dated 12/10/2024. 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 History of chronic hidradenitis suppurativa. COMPARISON: Correlation is made with 12/06/2024 and 11/19/2024 CT examinations. ACCESSION NUMBER(S): [id number] ORDERING CLINICIAN: TOYA RUBIO TECHNIQUE: Multiplanar multisequence MRI of the left femur was performed with and without intravenous gadolinium based contrast. FINDINGS: No images were obtained as the patient was unable to cooperate for the exam. No images were obtained as the patient was unable to cooperate for the exam. MACRO: None Signed by: Kong Armijo 12/12/2024 1:18 PM Dictation workstation: [id number] CT pelvis w IV contrast Result Date: [...] carcinoma. COMPARISON: CT pelvis 11/08/2024. ACCESSION NUMBER(S): [id number] ORDERING CLINICIAN: CLAUDIO PLUNKETT TECHNIQUE: CT of the chest, abdomen, and pelvis was performed. Contiguous axial images were obtained at 3 mm slice thickness through the chest, abdomen and pelvis. Coronal and sagittal reconstructions at 3 mm slice thickness were performed. 90 ML of Omnipaque 350 was administered intravenously without immediate complication. FINDINGS: CHEST: LUNG/PLEURA/LARGE AIRWAYS: Iyeu-ly-gsyssooe upper lobe predominant centrilobular and paraseptal emphysema. [...] Attention on follow-up examinations is recommended. 5. Aawr-qlrnxnd-ljsz-right skin thickening extending from the sacral region to the proximal thigh, in keeping with patient's background of hydradenitis suppurativa. 6. Ppnu-sm-vkuriqwy upper lobe predominant centrilobular and paraseptal emphysema. I personally reviewed the images/study and I agree with the findings as stated by Elenita Munroe MD (PGY-2). This study was interpreted at [facility], [place], [place]. MACRO: None Signed by: Ravin Hyatt 11/19/2024 4:54 PM Dictation workstation: [id number] Assessment/Plan Introduction to Integrative Medicine: Spoke with pt at bedside. Patient seemed to appreciate the extra layer of support. Integrative Medicine was introduced as a service for patients with serious illness to help with symptoms through non-pharmacological management, such as mindfulness, acupuncture, and gentle bodywork. Such interventions can assist with symptoms such as anxiety, fatigue, nausea, depression and pain. [facility] Integrative Medicine Symptom Management program offers multi-disciplinary [...] integrative heme/onc services. Music therapy, art therapy, ad trafficker and pet therapy offered to pt, pt declined; pt stated the grain mixer has been following. Left gluteal pain: pain related to malignancy, lesions Pain is well-controlled Defer to supportive oncology team for adequate PO/IV pain regimen Recommend integrative therapy modalities as pt allows: -Acupuncture; provided pt education today. Pt declined services, requesting follow up when next available -Acupressure, gua sha -Gentle bodywork and stretching as tolerated -Art therapy -Music therapy -Fur Clipper -Pet therapy Altered Mood: Anxiety and/or depression r/t health concerns History of anxiety/depression -Recommend integrative medicine modalities as listed above Mindfulness Brittney: AMDtx, Calm, Headspace, Insight Timer Guided Imagery Meditation (15 min in the morning) - consider mindfulness (Mindfulness based Stress Reduction) Apps such as CALM or Headspace Deep breathing: Alternate nostril breathing and Deep abdominal breathing (5 min) in the morning [facility] - Guided Meditation Thank you for allowing us to participate in the care of this patient. Integrative Medicine Team will continue to follow as needed. Please contact team with any questions or concerns. TRAVIS Patel (available by [place]) [facility] Inpatient Integrative Medicine I spent 45 [...] consult if vancomycin is resumed. Thank you, Alberto BarbosaD, BCPS Associated Order(s): Inpatient consult to Infectious [...] thigh under the necrotic tumor. Tumor board 11/18 plan was to treat with cemipilimab and [...] CHLORIDE mmol/L 104 106 109* CO2 mmol/L 22 BUN mg/dL 15 17 16 CREATININE [...] 12/07/24 1625 Drainage Description Foul odor;Purulent 12/08/24 0945 Drainage Amount Moderate 12/08/24 0945 Dressing Gauze;ABD 12/08/24 0945 Dressing Changed Changed [...] Small 12/09/24 1313 Dressing Silicone border dressing 12/09/241312 Dressing Changed New 12/09/241312 Dressing Status Clean 12/09/24 131 Wound Team Summary Assessment: Patient has large [...] reports having a good appetite during and YARD SPOTTER. YARD SPOTTER would drink ensure and a pastry for [...] Energy Estimated Needs in 24 hours (kCal): (9079-5448) Method for Estimating Needs: ABW x 28-32 [...] left gluteal region who was transferred to [facility] due to concerns for worsening left gluteal [...] affecting the LLE who was transferred to [facility] due to concerns of worsening LLE infection. [...] Little MD PGY-3 General Surgery Surgical Oncology [id number] Cosigned by Kong Mina MD at 12/09/2024 8:32 AM EDT Associated Order(s): Inpatient consult to [facility] Adult Supportive Oncology SUPPORTIVE AND PALLIATIVE ONCOLOGY [...] medications to patient prior to discharge via [facility] pharmacy. Prescriptions will need to be sent 48-72 hours prior to discharge so that a prior authorization can be completed. Discharge date: unknown pending acute issues Patient has an appointment with Outpatient Supportive Oncology TRAVIS Talavera 12/17/24 SIGNATURE: TRAVIS Rodas PAGER/CONTACT: Contact information: Supportive and Palliative Oncology Monday-Monday 8 AM-5 PM [employer] Secure chat or pager [phone]. After hours and weekends: pager [phone] Inpatient consult to [facility] Adult Supportive Oncology Consult performed by: TRAVIS Rodas Consult ordered by: Mine Nunez MD PALLIATIVE MEDICINE OUTPATIENT PROVIDER: TRAVIS Talavera- has NPV 12/17 CURRENT ATTENDING PROVIDER: Toya Rubio MD Medical Oncologist: Sreedhar Jiang MD Radiation Oncologist: No care prepared foods team leader to display Primary Physician: No primary care [...] alone. Has supportive brother and parents in [place], [place]. 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 Social History: reports that he [...] Value Ventricular Rate 77 Atrial Rate 77 DC Interval 146 QRS Duration 108 QT Interval 368 QTC Calculation(Bazett) 416 P Macon 55 R Macon 72 T Macon 66 QRS Count 13 Q Onset 211 [...] UNK primary Family: Supportive though live in [place] Performance status: Moderate limitations due to pain Joys/meaning/strength: Family and Bacon Understanding of health: Demonstrates good prognostic understanding [...] Surrogate decision maker is brother Omkar La [phone] Supportive Interventions: Interventions: Music Therapy: referral placed, [...] of shared electronic medical record/secure chat/email or [id number]. We will continue to follow. Please contact us for additional questions or concerns. SIGNATURE: TRAVIS Rodas PAGER/CONTACT: Contact information: Supportive and Palliative Oncology Monday-Monday 8 AM-5 PM [facility] Secure chat or pager [phone]. After hours and weekends: pager [phone] documented in this encounter [facility] [facility] Work Phone: 12-17-2024 Hospital Discharge instructions Fer [...] to feel better! documented in this encounter [facility] Work Phone: 12-16-2024 Procedure note Associated Ord er(s): COMPOSING MACHINE OPERATOR/TENDER MODIFIED BARIUM SWALLOW EVALUATION Speech-Language Pathology Inpatient Modified Barium Swallow Study Patient Name: Kevan La : 1975 Today's Date: 12/16/24 Start Time: 845 Stop Time: 915 Time Calculation (min): 30 min Modified Barium Swallow Study completed. Informed verbal consent obtained prior to completion of exam. Trials of thin liquid, mildly thick liquid, puree, and solids were given. COMPOSING MACHINE OPERATOR/TENDER: Makayla Dunham COMPOSING MACHINE OPERATOR/TENDER Contact info: [employer] Reason for Referral: C/f aspiration/oropharyngeal dysphagia Patient Hx: Kevan La is a 49 y.o. 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 COMPOSING MACHINE OPERATOR/TENDER Frequency: 2x per week Duration: 1-2 weeks [...] given on all accounts. Treatment Provided Today: COMPOSING MACHINE OPERATOR/TENDER provided extensive education and training to pt/pt [...] further evaluation by medical specialists, as applicable. COMPOSING MACHINE OPERATOR/TENDER Impressions with Severity Rating: Pt presenting with [...] obtained, suspect within normal limits for clearance COMPOSING MACHINE OPERATOR/TENDER recommends cautious initiation of thin liquids and easy to chew diet. See additional PO intake guidelines outlined below. If pt demonstrates any change/decline in medical/mental/respiratory status please make NPO and alert COMPOSING MACHINE OPERATOR/TENDER. Will continue to follow while in acute care setting to ensure diet tolerance and use of safe swallow guidelines. MD aware of recommendations Rosenbek's Penetration Aspiration Scale Thin Liquids: 3. PENETRATION with LOW ASPIRATION risk - contrast remains above vocal cords, visible residue] Huson Thick Liquids: 3. PENETRATION with LOW ASPIRATION risk - contrast remains above vocal cords, visible residue] Puree: 1. NO ASPIRATION & NO PENETRATION - no aspiration, contrast does not enter airway Solids: 1. NO ASPIRATION & NO PENETRATION - no aspiration, contrast does not enter airway documented in this encounter [facility] Work Phone: 12-10-2024 Nurse Note Patient asked [...] some divisional activities. documented in this encounter [facility] Work Phone: 12-07-2024 History and physical note [facility] SURGERY - CONSULT Patient Name: Kevan La Admit Date: 12/07/2024 : 1975 AGE: 49 y.o. GENDER: male TODAY'S ASSESSMENT AND PLAN OF CARE: ASSESSMENT: Kevan La is a 49 y.o. male with history of hidradenitis supprativa refractory to numerous medications, invasive SCC dx in Oct 2024 both affecting the LLE who was transferred to [facility] due to concerns for worsening infection in the LLE. Pt is stable with no s/s of systemic infection. High suspicion for necrotic oncologic mass over fluid collection. No indication for I&D. Requested outside images from rads op, recommend requesting radiology overread. Consider MRI to further evaluation of soft tissue/mass Discussed with Dr. Garrison. Kishore Sweeney MD PGY-1 General Surgery Acute Care Surgery [id number] Subjective CHIEF COMPLAINT/REASON FOR CONSULT: Chief Complaint: change in quantity and quality of drainage from know HS HPI: Kevan La is a 49 y.o. male with history of hidradenitis supprativa refractory to numerous medications, invasive SCC dx in Oct 2024 both affecting the LLE who was transferred to [facility] due to concerns for worsening infection in [...] 12/08/2024 1:05 AM EDT Pts imaging from [place] and last imaging at [facility] reviewed. Recommend having our radiology team review [place] CT and provide comparison to last CT [...] who presents for cellulitis. Was admitted from [facility] on 12/08, chronic gluteal wound and hypotension. Today he presents as transfer from [facility], came in from [facility], reporting worsening wound. States for the last week he has noticed increased odor and discharge (unclear what color). Endorses taking his Augmentin as instructed. Denies any worsening pain. States during this time he has felt fatigued and endorses nausea and NBNB vomiting. Denies any fever, chills, or any other symptoms. Notably, the pt was admitted at [facility] 11/10-11/27 after her arrived from [facility] and CT revealed large ulcerative wound at [...] and invasive SCC who is returning to [facility] 11/10/2024 as a transfer from [facility] regarding gluteal fluid collection. Labs Cr 1.32, [...] Anemia #Folate Deficiency :: Hgb 10.4 at [facility], Hgb 8.8 on admission, Hgb 9.0 today [...] 5:04 PM EDT documented in this encounter [facility] Work Phone: 12-07-2024 Nurse Note [phone] called report to ambulance is here to pick patient up [facility] 12-07-2024 Nurse Note [phone] called report to ambulance is here to pick patient up 1114 chcf RN called regarding updates, updated on patient status/plan of care documented in this encounter [facility] 12-07-2024 Note Attestation signed by Juvenal Mathur [...] carcinoma, chronic kidney diseaset hat presented to [facility] on 12/06/2024 with increased drainage from his [...] to his established general surgery team at [facility]. Transfer was arranged. Patient was maintained [...] Time of Discharge Wound culture, Blood cultures [facility] 12-07-2024 Hospital course Narrative Internal Medicine: Med [...] carcinoma, chronic kidney diseaset hat presented to [facility] on 12/06/2024 with increased drainage from his [...] to his established general surgery team at [facility]. Transfer was arranged. Patient was maintained [...] on discharge >30min documented in this encounter [facility] 12-07-2024 Emergency department Note Report to AMAN Galindo. [facility] 12-07-2024 Emergency department Note Report to AMAN [...] distances. Pt is A&Ox4. Emergency Department Encounter [facility] EMERGENCY DEPT Patient: Kevan La : 1975 [...] dictating provider for clarification.) Fer Hollins MD [facility] Fer Hollins MD 12/06/24 1120 documented in this encounter [facility] 12-07-2024 Emergency department Note Patient provided urinal per request. Respirations even and unlabored. No acute distress noted. [facility] 12-07-2024 Emergency department Note Report from AMAN Galindo. [facility] 12-07-2024 Note 1114 chcf RN called regarding updates, updated on patient status/plan of care [facility] 12-07-2024 Nurse Note 1114 chcf RN called regarding updates, updated on patient status/plan of care [facility] 12-07-2024 Emergency department Note Report to Josie/AMAN and patient moved to room 9 with all belongings and breakfast tray T [facility] 12-07-2024 Emergency department Note Patient moving from 43 to 9 now T [facility] 12-07-2024 Emergency department Note AMAN/Margarita ordered breakfast for the patient per his preference T [facility] 12-07-2024 Emergency department Note Requested pharmacy to retime Vanc due to 3 hour administration of Zosyn (& both ordered at same time) T [facility] 12-07-2024 Consult note Formatting of th is [...] creatinine, and vancomycin levels interfaced automatically to [place] and data has been analyzed and interpreted. [...] RPh Clinical Pharmacist Available via Secure Chat [facility] 12-07-2024 Consult note Formatting of th is [...] creatinine, and vancomycin levels interfaced automatically to [place] and data has been analyzed and interpreted. [...] via Secure Chat documented in this encounter [facility] 12-07-2024 History and physical note Internal Medicine: Med Team Initial History and Physical Kevan La : 1975(49 y.o.) Date: December 07, 2024 TEAM: Isidro Attending: Dr. Mathur Subjective: Chief Complaint: Draining [...] carcinoma by the general surgery team at [facility]. He is scheduled to be transferred [...] 16.6* ABGs: No results for input(s): "PHART", "ANA0WXH", "PO2ART", "CXM2GHL", "SO2ART", "T6OUDICC" in the last 72 hours. Lactic Acid: [...] documented squamous cell carcinoma from dermatology at [facility] -CT scan of abdomen and pelvis showing [...] Normal (BMI 18.5-24.9) - Disposition: Admit to [facility]. - Given the signs and symptoms associated [...] left side of patient's chart) 5PM-7AM: contact [address] [facility] Work Phone: 12-07-2024 Note Attestation signed by Juvenal [...] monitoring serum creatinine 7AM-5PM: contact resident on "[facility] Med B" (find by hovering over attending's name on left side of patient's chart) 5PM-7AM: contact [facility] [place] Internal Medicine: Med Team Initial History and Physical Kevan La : 1975(49 y.o.) Date: December 07, 2024 TEAM: Isidro Attending: Dr. Mathur Subjective: Chief Complaint: Draining [...] carcinoma by the general surgery team at [facility]. He is scheduled to be transferred [...] g) into a (more content not included)... [facility] 12-07-2024 History and physical note Internal Medicine: Med Team Initial History and Physical Kevan La : 1975(49 y.o.) Date: December 07, 2024 TEAM: Isidro Attending: Dr. Mathur Subjective: Chief Complaint: Draining [...] carcinoma by the general surgery team at [facility]. He is scheduled to be transferred [...] 16.6* ABGs: No results for input(s): "PHART", "YKA4UXD", "PO2ART", "ZFZ3NCT", "SO2ART", "T5TJNZCM" in the last 72 hours. Lactic Acid: [...] documented squamous cell carcinoma from dermatology at [facility] -CT scan of abdomen and pelvis showing [...] Normal (BMI 18.5-24.9) - Disposition: Admit to [facility]. - Given the signs and symptoms associated [...] side of patient's chart) 5PM-7AM: contact AI2 paris documented in this encounter [facility] 12-07-2024 Emergency department Note Patient actively vomiting - provider notified [facility] 12-07-2024 Emergency department Note Report given to AMAN Sutton [facility] 12-06-2024 Emergency department Note Assume care of pt from AMAN Sutton for lunch coverage [facility] 12-06-2024 Emergency department Note Patient requested pillow to place under right hip/leg for comfort. States he got a text message from that he can "early check in" and questioned if transfer was arranged. This nurse advised patient unknown at this time. [facility] 12-06-2024 Emergency department Note Pt to CT [facility] 12-06-2024 Emergency department Note This RN attempted to obtain another IV access and blood cultures but was unsuccessful [facility] 12-06-2024 Emergency department Note Report to AMAN Pittman. [facility] 12-06-2024 Emergency department Note Pt presents to ED via EMS from an assisted living facility with c/o a seeping ulcer. EMS reports this has been an ongoing issue. Pt states he is only ambulatory for short distances. Pt is A&Ox4. [facility] 12-06-2024 Physician Emergency department Note Emergency Department Encounter [facility] EMERGENCY DEPT Patient: Kevan La : 1975 [...] [employer] Fer Hollins MD 12/06/24 1120 [facility] Phone: 11-29-2024 History of Present illness Narrative [...] Attention on follow-up examinations is recommended. 5. Fkwj-gijukwm-xsaq-right skin thickening extending from the sacral region to the proximal thigh, in keeping with patient's background of hydradenitis suppurativa. 6. Szil-bw-hfgupjrr upper lobe predominant centrilobular and paraseptal emphysema. [...] is on trial STOP HS-[address] Christiansen and Dr. Lutz. I will message them in anticipation of [...] clinical picture. 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 Per medical team, patient is medically ready to discharge. [facility] ready to accept today. Transport confirmed for 5pm today with [facility] ([phone]). Report: [phone]. Nurse, medical team, SNF, and patient aware [...] "It's the consistency". Patient has tried the Event[employer] Custard, but states it melts before he [...] Lunch Select supplement: Ensure Plus 11/11/24 1047 11/10/247 May Participate in Room Service ( ROOM [...] Kevan La : 1975 Date: 11/26/24 Room: [address] [place], [place] [address]A Time Calculation Start Time: 1234 Stop Time: [...] of continued care Equipment Recommended upon Discharge: (medical accounts receivable specialist, sock aide, shower chair) OT Recommended Transfer [...] Strength Comments: WFL via ADLs Outcome Measures: [facility] Daily Activity Putting on and taking off [...] Demonstrated Understanding ADL Training, taught by Manuela Elmoer OT at 11/26/2024 1:58 PM. Learner: Patient [...] Expected End: 12/02/24 11/26/24 at 2:05 PM Manuela Elmore OTR/Kamila [phone] Requested [facility] DSC team start precert for [facility]. Jami Erwin RN, TCC Occupational Therapy Therapy Communication Note Patient Name: Kevan La Department: [place] [address] Room: [address] [place] [address] Today's Date: 11/26/2024 Discipline: Occupational Therapy OT Missed Visit: Yes Missed Visit Reason: Missed Visit Reason: Other (Comment) (Pt endorsing pain and stated "I'm waiting for the nurse to give me pain meds" and "I can't even eat breakfast. Will reattempt as schedule permits.) Missed Time: Attempt DANY Cortés/Kamila Kevan La is a 49 y.o. male [...] 11/26/2024 0705 Last data filed at 11/26/2024 4949 Gross per 24 hour Intake 100 ml [...] carcinoma. COMPARISON: CT pelvis 11/08/2024. ACCESSION NUMBER(S): [id number] ORDERING CLINICIAN: CLAUDIO PLUNKETT TECHNIQUE: CT of the chest, abdomen, and pelvis was performed. Contiguous axial images were obtained at 3 mm slice thickness through the chest, abdomen and pelvis. Coronal and sagittal reconstructions at 3 mm slice thickness were performed. 90 ML of Omnipaque 350 was administered intravenously without immediate complication. FINDINGS: CHEST: LUNG/PLEURA/LARGE AIRWAYS: Uixl-nl-ikkllwxq upper lobe predominant centrilobular and paraseptal emphysema. [...] Attention on follow-up examinations is recommended. 5. Guyy-jagizzv-jgxr-right skin thickening extending from the sacral region to the proximal thigh, in keeping with patient's background of hydradenitis suppurativa. 6. Vdeu-ww-jwcuixku upper lobe predominant centrilobular and paraseptal emphysema. I personally reviewed the images/study and I agree with the findings as stated by Elenita Munroe MD (PGY-2). This study was interpreted at [facility], [place], [place]. MACRO: None Signed by: Ravin Hyatt 11/19/2024 4:54 PM Dictation workstation: [id number] Physical Exam General: Resting in bed on [...] clindamycin, rifampin, augmentin and doxycycline, transferred from [facility] regarding 14cm gluteal fluid collection. He was [...] tentatively arrange follow-up with Dr. Jiang at [facility], pending transport capabilities of eventual SNF - [...] outpt follow-up if he is establishing at [facility] for follow-up oncology care [ ] f/u [...] ::A1c and UA normal on admission at [facility] ::FeUrea 48.2% (>35=> suggestive of intrinsic renal disease) Plan - Avoid nephrotoxic drug, hypotension, sepsis, dehydration - Continuing to encourage oral hydration and monitor serum calcium #Bladder Calculi ::Incidentally noted on CT Pelvis from OSH, asymptomatic, max diam is 1.5 cm #Normocytic Anemia #Folate Deficiency :: Hgb 10.4 at [facility], Hgb 8.8 on admission, Hgb 9.0 today [...] Therapy Treatment Patient Name: Kevan La Department: [facility] 3 Room: [address] [place] [address] Today's Date: 11/25/2024 Time Calculation Start Time: 1521 Stop Time: 1538 Time Calculation (min): 17 min Assessment/Plan PT [...] to avoid any WB through L buttocks. ([facility] flat) Bed Mobility 2 Bed Mobility 2: Sitting to supine Level of Assistance 2: Close supervision Bed Mobility Comments 2: Pt entered bed forward by placing R knee into bed first & turning himself into sidelying to avoid WB through L buttock. ([facility] flat) Ambulation/Gait Training Ambulation/Gait Training Performed: No [...] of Assistance 2: Contact guard Outcome Measures: [facility] Basic Mobility Turning from your back to [...] Lopez PT, DPT Music Therapy Note Kevan La Therapy Session [...] recorded blue grass version of the song, "Dry Lubephill man" and expressed interest in covers of popular songs that are adapted to a unique and different style than the original. Pt also participated by clapping and displaying a bright affect after each song that was played by TAQUERIA and DIVYA who both sang and self-accompanied on guitar. Evaluation: Pt responded by engaging in conversation of themes surrounding Astronomy and personal hobbies prompted by the music. Pt responded by expressing how the music relieved stress and provided a means of coping during his stay. Follow-up: MT and TAQUERIAI will continue to f/u during pts admission. Education Documentation No documentation found. Cosigned by RAJENDRA Liu at 11/27/2024 2:06 PM EDT Transitional Care Coordination Progress Note: PLAN PER MEDICAL TEAM: Working on pain management, still severe. Received recommendations from supportive onc. Continue to monitor his resolving wound infection requiring IV ATB that will convert to oral prior to discharge. PAYOR: Veronica DISPO: [facility] is accepting FOC. ADOD 2-3 days. Will need precert. Requested updated PT/OT evals to start precert. SUPPORT/CONTACT: Omkar Robertson, Jami Erwin RN, TCC Kevan La is [...] carcinoma. COMPARISON: CT pelvis 11/08/2024. ACCESSION NUMBER(S): [id number] ORDERING CLINICIAN: CLAUDIO PLUNKETT TECHNIQUE: CT of the chest, abdomen, and pelvis was performed. Contiguous axial images were obtained at 3 mm slice thickness through the chest, abdomen and pelvis. Coronal and sagittal reconstructions at 3 mm slice thickness were performed. 90 ML of Omnipaque 350 was administered intravenously without immediate complication. FINDINGS: CHEST: LUNG/PLEURA/LARGE AIRWAYS: Vnly-ry-zbjuymdb upper lobe predominant centrilobular and paraseptal emphysema. [...] Attention on follow-up examinations is recommended. 5. Lnye-mxlxnfw-azmk-right skin thickening extending from the sacral region to the proximal thigh, in keeping with patient's background of hydradenitis suppurativa. 6. Cbuj-ed-txbqprtd upper lobe predominant centrilobular and paraseptal emphysema. I personally reviewed the images/study and I agree with the findings as stated by Elenita Munroe MD (PGY-2). This study was interpreted at [facility], [place], [place]. MACRO: None Signed by: Ravin Hyatt 11/19/2024 4:54 PM Dictation workstation: [id number] Physical Exam General: Resting in bed on [...] clindamycin, rifampin, augmentin and doxycycline, transferred from [facility] regarding 14cm gluteal fluid collection. He was [...] tentatively arrange follow-up with Dr. Jiang at [facility], pending transport capabilities of eventual SNF - [...] outpt follow-up if he is establishing at [facility] for follow-up oncology care [ ] f/u [...] Stopped PO Augmentin 875 BID (11/14-11/22/24) :: 3/ New wound infection suspected Plan: - cont [...] ::A1c and UA normal on admission at [facility] ::FeUrea 48.2% (>35=> suggestive of intrinsic renal disease) Plan - Avoid nephrotoxic drug, hypotension, sepsis, dehydration - Continuing to encourage oral hydration and monitor serum calcium #Bladder Calculi ::Incidentally noted on CT Pelvis from OSH, asymptomatic, max diam is 1.5 cm #Normocytic Anemia #Folate Deficiency :: Hgb 10.4 at [facility], Hgb 8.8 on admission, Hgb 9.0 today [...] carcinoma. COMPARISON: CT pelvis 11/08/2024. ACCESSION NUMBER(S): [id number] ORDERING CLINICIAN: CLAUDIO PLUNKETT TECHNIQUE: CT of the chest, abdomen, and pelvis was performed. Contiguous axial images were obtained at 3 mm slice thickness through the chest, abdomen and pelvis. Coronal and sagittal reconstructions at 3 mm slice thickness were performed. 90 ML of Omnipaque 350 was administered intravenously without immediate complication. FINDINGS: CHEST: LUNG/PLEURA/LARGE AIRWAYS: Jrcf-xr-haxuvypj upper lobe predominant centrilobular and paraseptal emphysema. [...] Attention on follow-up examinations is recommended. 5. Aoda-ukjofpx-cgao-right skin thickening extending from the sacral region to the proximal thigh, in keeping with patient's background of hydradenitis suppurativa. 6. Xwrc-ii-sqsbaxlh upper lobe predominant centrilobular and paraseptal emphysema. I personally reviewed the images/study and I agree with the findings as stated by Elenita Munroe MD (PGY-2). This study was interpreted at [place], [place]. MACRO: None Signed by: Ravin Hyatt 11/19/2024 4:54 PM Dictation workstation: [id number] Physical Exam General: Resting in bed on [...] clindamycin, rifampin, augmentin and doxycycline, transferred from [facility] regarding 14cm gluteal fluid collection. He was [...] tentatively arrange follow-up with Dr. Jiang at [facility], pending transport capabilities of eventual SNF - [...] 36 New wound infection suspected Plan: - repeat [...] ::A1c and UA normal on admission at [facility] ::FeUrea 48.2% (>35=> suggestive of intrinsic renal disease) - Avoid nephrotoxic drug, hypotension, sepsis, dehydration - Continuing to encourage oral hydration and monitor serum calcium #Bladder Calculi ::Incidentally noted on CT Pelvis from OSH, asymptomatic, max diam is 1.5 cm #Normocytic Anemia #Folate Deficiency :: Hgb 10.4 at [facility], Hgb 8.8 on admission, Hgb 9.0 today [...] carcinoma. COMPARISON: CT pelvis 11/08/2024. ACCESSION NUMBER(S): [id number] ORDERING CLINICIAN: CLAUDIO PLUNKETT TECHNIQUE: CT of the chest, abdomen, and pelvis was performed. Contiguous axial images were obtained at 3 mm slice thickness through the chest, abdomen and pelvis. Coronal and sagittal reconstructions at 3 mm slice thickness were performed. 90 ML of Omnipaque 350 was administered intravenously without immediate complication. FINDINGS: CHEST: LUNG/PLEURA/LARGE AIRWAYS: Tzlb-lb-ejrtefhv upper lobe predominant centrilobular and paraseptal emphysema. [...] Attention on follow-up examinations is recommended. 5. Vzhb-gaappye-ywzo-right skin thickening extending from the sacral region to the proximal thigh, in keeping with patient's background of hydradenitis suppurativa. 6. Azfi-vj-qxiwzghi upper lobe predominant centrilobular and paraseptal emphysema. I personally reviewed the images/study and I agree with the findings as stated by Elenita Munroe MD (PGY-2). This study was interpreted at [facility], [place], [place]. MACRO: None Signed by: Ravin Hyatt 11/19/2024 4:54 PM Dictation workstation: [id number] Physical Exam General: Resting in bed on [...] clindamycin, rifampin, augmentin and doxycycline, transferred from [facility] regarding 14cm gluteal fluid collection. He was [...] tentatively arrange follow-up with Dr. Jiang at [facility], pending transport capabilities of eventual SNF - [...] pamidronate 1-2 weeks after initial admin. (November 19). #Nicotine Use - Continue home Chantix #Subacute PARUL - improving ::Cr ~1.6 on last admission, Cr continues to improve ::On prior admission was evaluated for this with normal UA, CT with no hydronephrosis, felt to be 2/2 NSAID use for HS ::A1c and UA normal on admission at [facility] ::FeUrea 48.2% (>35=> suggestive of intrinsic renal disease) - Avoid nephrotoxic drug, hypotension, sepsis, dehydration - Continuing to encourage oral hydration and monitor serum calcium #Bladder Calculi ::Incidentally noted on CT Pelvis from OSH, asymptomatic, max diam is 1.5 cm #Normocytic Anemia #Folate Deficiency :: Hgb 10.4 at [facility], Hgb 8.8 on admission, Hgb 9.0 today [...] molecule JAK1 inhibitor), who was transferred from [facility] for a worsening of L gluteal wound [...] the context of long-standing hidradenitis suppurativa, PMID: [id number] 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 Basic Mobility Turning from your back to [...] q8h Continue scheduled fentanyl 50mcg/h TD patch [id number] 11/20/24 Continue gabapentin 300mg PO once daily [...] One time PRN dose of bisacodyl 10mg DC ordered per primary Goal to have BM without straining q48-72h, adjust regimen as needed Encourage mobility as tolerated, PT/OT following Disposition: Please start the process of having prior authorization with meds to beds deliver medications to patient prior to discharge via [facility] pharmacy. Prescriptions will need to be sent 48-72 hours prior to discharge so that a prior authorization can be completed. Discharge date pending resolution of acute hospital issues. Patient does not currently qualify for an appointment with outpatient Supportive Oncology--He first needs to establish with outpatient Oncology. SIGNATURE: Jami Lance, RAILROAD BAGGAGE PORTER-PLANTING MATERIAL UNLOADER PAGER/CONTACT: Contact information: Supportive and Palliative Oncology Monday-Monday 8 AM-5 PM Epic Secure chat or pager [phone]. After hours and weekends: pager [phone] == SUBJECTIVE: Pain Assessment: I have no pain right now. Opioid Requirements Past 24h opioid requirements: (11/21-11/22, 9650-4463) fentanyl 50mcg/h TD patch x 1 = [...] Decision Making/Goals of Care/Advance Care Planning: (Per Emiel Segovia CNP's, note on 11/16/24) Patient's current clinical condition, including diagnosis, prognosis, and management plan, and goals of care were discussed. 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 We will continue to follow. Please contact us for additional questions or concerns. SIGNATURE: TRAVIS Huizar PAGER/CONTACT: Contact information: Supportive and Palliative Oncology Monday-Monday 8 AM-5 PM, [employer] Secure chat or pager [phone]. After hours and weekends: pager [phone] Kevan La is a 49 y.o. male [...] clindamycin, rifampin, augmentin and doxycycline, transferred from [facility] regarding 14cm gluteal fluid collection. He was [...] tentatively arrange follow-up with Dr. Jiang at [facility], pending transport capabilities of eventual SNF - [...] ::A1c and UA normal on admission at [facility] ::FeUrea 48.2% (>35=> suggestive of intrinsic renal disease) - Avoid nephrotoxic drug, hypotension, sepsis, dehydration - Continuing to encourage oral hydration and monitor serum calcium #Bladder Calculi ::Incidentally noted on CT Pelvis from OSH, asymptomatic, max diam is 1.5 cm #Normocytic Anemia #Folate Deficiency :: Hgb 10.4 at [facility], Hgb 8.8 on admission, Hgb 9.0 today [...] clindamycin, rifampin, augmentin and doxycycline, transferred from [facility] regarding 14cm gluteal fluid collection. He was [...] 11/21 Updates: - LC staining negative - Tyhee 61.2 (H), Lambda 44.2 (H), ratio 1.38 [...] tentatively arrange follow-up with Dr. Jiang at [facility], pending transport capabilities of eventual SNF - [...] ::A1c and UA normal on admission at [facility] ::FeUrea 48.2% (>35=> suggestive of intrinsic renal disease) - Avoid nephrotoxic drug, hypotension, sepsis, dehydration - Continuing to encourage oral hydration and monitor serum calcium #Bladder Calculi ::Incidentally noted on CT Pelvis from OSH, asymptomatic, max diam is 1.5 cm #Normocytic Anemia #Folate Deficiency :: Hgb 10.4 at [facility], Hgb 8.8 on admission, Hgb 9.0 today [...] q8h Continue scheduled fentanyl 50mcg/h TD patch [id number] 11/20/24 Start gabapentin 300mg PO once daily [...] One time PRN dose of bisacodyl 10mg DC ordered per primary Goal to have BM without straining q48-72h, adjust regimen as needed Encourage mobility as tolerated, PT/OT following Disposition: Please start the process of having prior authorization with meds to beds deliver medications to patient prior to discharge via [facility] pharmacy. Prescriptions will need to be sent 48-72 hours prior to discharge so that a prior authorization can be completed. Discharge date: unknown pending acute issues Patient does not qualify for an appointment with Outpatient Supportive Oncology- needs to establish with Oncology outpatient SIGNATURE: TRAVIS Huizar PAGER/CONTACT: Contact information: Supportive and Palliative Oncology Monday-Monday 8 AM-5 PM [employer] Secure chat or pager [phone]. After hours and weekends: pager [phone] == SUBJECTIVE: Interval Events: Pt's pain sub-optimally controlled on current regimen. Discussed with pt and he is agreeable to above recommendations. Plans to re-evaluate pt tomorrow for possible eligibility for fentanyl patch increase. Dropped off Supportive Oncology information packet, [facility] packet, and packet regarding assistance with disability/financial resources per grain mixer. Pain Assessment: Location: Left gluteal abscess Duration: Constant Characteristics: Ratin/10 Descriptors: Throbbing, sharp, and burning Aggravating: Movement, "worse at night" Relieving: Analgesics, positioning, and modifying activity Interference with Function: Somewhat Opioid Requirements Past 24h opioid requirements: (11/20-11/21, 1198-4968) fentanyl 50mcg/h TD patch x 1 = [...] of Care/Advance Care Planning: (Per Emile Segovia, PLANTING MATERIAL UNLOADER's, note on 11/16/24) Patient's current clinical condition, including diagnosis, prognosis, and management plan, and goals of care were discussed. 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 We will continue to follow. Please contact us for additional questions or concerns. SIGNATURE: TRAVIS Huizar PAGER/CONTACT: Contact information: Supportive and Palliative Oncology Monday-Monday 8 AM-5 PM, [employer] Secure chat or pager [phone]. After hours and weekends: pager [phone] Transitional Care Coordination Progress Note: Patient discussed during interdisciplinary rounds. Team members present: , MIGUEL Plan per Medical/Surgical team: Gluteal Abscess Payor: [facility] Discharge disposition: [facility] Potential Barriers: medical ADOD: 3-4 days Per MD, continuing to manage pain. Pending plans from oncology. Updated notes sent to facility. Will continue to follow for discharge planning needs. Julisa GARZA, tubing mill setter Coordinator (TCC) [phone] Occupational Therapy OT Treatment Patient Name: Kevan La Department: [place] [address] Room: [address] [place] [address] Today's Date: 11/21/2024 Time Calculation Start Time: [...] health - pt highly appreciative. Outcome Measures: [facility] Daily Activity Putting on and taking off [...] (OTR/L, OTD) Inpatient Occupational Therapist Rehab Office: [phone] Spiritual Care Visit Spiritual Care Request Spiritual Care Annotation Annotation: Piano Sounding Board Matcher had a follow-up visit with the patient. Piano Sounding Board Matcher delivered prayer book resources as promised and shared with the patient what was brought. 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 His family lives in [place]. Patient does not have much support around him in [place]. Piano Sounding Board Matcher placed a [facility] cancer support referral for the patient upon his request. Piano Sounding Board Matcher will continue to follow and provide support. Please reach out with any needs/concerns. Rev. Mack Schmitz, Supportive Oncology Piano Sounding Board Matcher Physical Therapy Therapy Communication Note Patient Name: Kevan La Department: [place] [address] Room: [address] [place] [address] Today's Date: 11/20/2024 Discipline: Physical Therapy PT Missed Visit: Yes Missed Visit Reason: Missed Visit Reason: Patient refused (Pt stated he has been nauseaus today and not willing to get up.) Missed Time: Attempt Comment: Cosigned by Doris Guzman PT at 11/20/2024 9:44 PM EST Occupational Therapy Therapy Communication Note Patient Name: Kevan La Department: [place] [address] Room: [id number] Today's Date: 11/20/2024 Discipline: Occupational Therapy OT [...] (OTR/L, OTD) Inpatient Occupational Therapist Rehab Office: [phone] Kevan La is a 49 y.o. male [...] medications to patient prior to discharge via [facility] pharmacy. Prescriptions will need to be sent 48-72 hours prior to discharge so that a prior authorization can be completed. Discharge date: unknown pending acute issues Patient does not qualify for an appointment with Outpatient Supportive Oncology- needs to establish with Oncology outpatient SIGNATURE: TRAVIS Rodas PAGER/CONTACT: Contact information: Supportive and Palliative Oncology Monday-Monday 8 AM-5 PM [employer] Secure chat or pager [phone]. After hours and weekends: pager [phone] SUBJECTIVE: Interval Events: Pt continues to have [...] limitations due to pain Joys/meaning/strength: Family and Bacon Understanding of health: 11/16: Demonstrates good prognostic [...] of shared electronic medical record/secure chat/email or [id number]. We will continue to follow Please contact us for additional questions or concerns. SIGNATURE: TRAVIS Rodas PAGER/CONTACT: Contact information: Supportive and Palliative Oncology Monday-Monday 8 AM-5 PM [employer] Secure chat or pager [phone]. After hours and weekends: pager [phone] Kevan La is a 49 y.o. male [...] 72 hours Lab Units 11/20/24 0531 11/19/24 0611/18/24 06 WBC AUTO x10*3/uL 11.4* 12.1* 12.3* HEMOGLOBIN g/dL 8.6* 9.0* 9.0* HEMATOCRIT % 28.4* 29.6* 29.9* PLATELETS AUTO x10*3/uL 771* 758* 785* BMP Results from last 72 hours Lab Units 11/20/24 0532 11/19/24 0608 11/18/24 06 SODIUM mmol/L 134* 134* 135* POTASSIUM mmol/L [...] clindamycin, rifampin, augmentin and doxycycline, transferred from [facility] regarding 14cm gluteal fluid collection. He was [...] tentatively arrange follow-up with Dr. Jiang at [facility], pending transport capabilities of eventual SNF - [...] ::A1c and UA normal on admission at [facility] ::FeUrea 48.2% (>35=> suggestive of intrinsic renal disease) - Avoid nephrotoxic drug, hypotension, sepsis, dehydration - Continuing to encourage oral hydration and monitor serum calcium #Bladder Calculi ::Incidentally noted on CT Pelvis from OSH, asymptomatic, max diam is 1.5 cm #Normocytic Anemia #Folate Deficiency :: Hgb 10.4 at [facility], Hgb 8.8 on admission, Hgb 9.0 today [...] molecule JAK1 inhibitor), who was transferred from [facility] for a worsening of L gluteal wound [...] the context of long-standing hidradenitis suppurativa, PMID: [id number] 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 PMID: [id number] Recommendations: - Informed patient of biopsy results, [...] of Care: Visited With: Patient Refer to Piano Sounding Board Matcher: Spiritual Care Assessment Spiritual Assessment: Care Provided: Intended Effects: Build relationship of care and support, Establish rapport and connectedness, Aligning care plan with patient's values, Convey a calming presence, Promote sense of peace Interventions: Ask guided questions, Active listening, Discuss concerns Sense of Community and or Methodist Affiliation: No orthodoxy on file Piano Sounding Board Matcher Addressed Needs/Concerns and/or Mike Through: Outcome: Advance Directives: Spiritual Care Annotation Annotation: Piano Sounding Board Matcher introduced self and spiritual care services to [...] to focus on in his own life. Piano Sounding Board Matcher made a plan to follow-up tomorrow. Please reach out with any needs/concerns. Rev. 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 Patient [...] from last 72 hours Lab Units 11/19/24 0611/18/2462611/17/24 0515 WBC AUTO x10*3/uL 12.1* 12.3* 11.0 HEMOGLOBIN g/dL 9.0* 9.0* 8.3* HEMATOCRIT % 29.6* 29.9* 26.6* PLATELETS AUTO x10*3/uL 758* 785* 639* BMP Results from last 72 hours Lab Units 11/19/24 0608 11/18/2462611/17/24 0515 SODIUM mmol/L 134* 135* 134* POTASSIUM [...] clindamycin, rifampin, augmentin and doxycycline, transferred from [facility] regarding 14cm gluteal fluid collection. He was [...] ::A1c and UA normal on admission at [facility] ::FeUrea 48.2% (>35=> suggestive of intrinsic renal disease) - Avoid nephrotoxic drug, hypotension, sepsis, dehydration - Continuing to encourage oral hydration and monitor serum calcium #Bladder Calculi ::Incidentally noted on CT Pelvis from OSH, asymptomatic, max diam is 1.5 cm #Normocytic Anemia #Folate Deficiency :: Hgb 10.4 at [facility], Hgb 8.8 on admission, Hgb 9.0 today [...] PGY-1 Cosigned by Gilbert Sylvester MD at 11/19/2024 3:09 PM EST [...] Lunch Select supplement: Ensure Plus 11/11/24 1047 11/10/247 May Participate in Room Service ( ROOM [...] Plan per Medical/Surgical team: Gluteal abscess Payor: [employer] Discharge disposition: [facility] Potential Barriers: medical ADOD: 2-3 days Updated notes sent to [facility]. Will continue to monitor for discharge planning needs. Julisa GARZA, tubing mill setter Coordinator (TCC) [phone] Physical Therapy Physical Therapy Treatment Patient Name: Kevan La Department: [place] [address] Room: [address] [place] [address] Today's Date: 11/18/2024 Time Calculation Start Time: [...] of Assistance 1: Close supervision Outcome Measures: [facility] Basic Mobility Turning from your back to [...] Units 11/18/24 0627 11/17/24 0515 11/16/24 0603 WBC AUTO x10*3/uL 12.3* [...] clindamycin, rifampin, augmentin and doxycycline, transferred from [facility] regarding 14cm gluteal fluid collection. He was [...] ::A1c and UA normal on admission at [facility] ::FeUrea 48.2% (>35=> suggestive of intrinsic renal disease) - Avoid nephrotoxic drug, hypotension, sepsis, dehydration - Continuing to encourage oral hydration and treat hypercalcemia #Bladder Calculi ::Incidentally noted on CT Pelvis from OSH, asymptomatic, max diam is 1.5 cm #Anemia :: Hgb 10.4 at [facility], Hgb 8.8 on admission, Hgb 9.0 today [...] clindamycin, rifampin, augmentin and doxycycline, transferred from [facility] regarding 14cm gluteal fluid collection. 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 presenting to [...] ::A1c and UA normal on admission at [facility] ::FeUrea 48.2% (>35=> suggestive of intrinsic renal disease) - Avoid nephrotoxic drug, hypotension, sepsis, dehydration - Continuing to encourage oral hydration and treat hypercalcemia #Bladder Calculi ::Incidentally noted on CT Pelvis from OSH, asymptomatic, max diam is 1.5 cm #Anemia :: [facility] Hgb 8.8 on [facility], Hgb 7.7 [...] 11:28 AM EST Associated attestation - Claudio Pluknett MD - 11/17/2024 11:28 AM EST I [...] from last 7 days Lab Units 11/16/24 0611/15/24 0535 11/14/24 1042 11/13/24 1723 11/13/24 1535 11/13/24 1512 POCT GLUCOSE mg/dL -- -- -- -- -- 96 GLUCOSE mg/dL 115* 116* 97 117* 83 -- . Results from last 7 days Lab Units 11/16/24 0611/15/24 0535 11/14/24 1042 SODIUM mmol/L 136 138 [...] Ashly Patterson MD Endocrinology, PGY 5 Pager [phone] or secure chat Case discussed with Dr. [...] clindamycin, rifampin, augmentin and doxycycline, transferred from [facility] regarding 14cm gluteal fluid collection. 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 presenting to [...] ::A1c and UA normal on admission at [facility] ::FeUrea 48.2% (>35=> suggestive of intrinsic renal disease) - Avoid nephrotoxic drug, hypotension, sepsis, dehydration - Continuing to encourage oral hydration and treat hypercalcemia #Bladder Calculi ::Incidentally noted on CT Pelvis from OSH, asymptomatic, max diam is 1.5 cm #Anemia :: Hgb 10.4 at [facility], Hgb 8.8 on admission, Hgb 7.7 today [...] Kevan La : 1975 Date: 11/15/24 Room: [address] [place] [address] Time Calculation Start Time: 1530 Stop Time: [...] Dressing Where Assessed: Bed level Outcome Measures: [facility] Daily Activity Putting on and taking off [...] End: 12/02/24 11/15/24 at 4:17 PM Shereen Santoyo, OT [phone] Kevan La is a 49 y.o. male [...] Communication Note Patient Name: Kevan La Department: [facility] 3 Room: 319319-A Today's Date: 11/15/2024 Discipline: Physical Therapy PT [...] clindamycin, rifampin, augmentin and doxycycline, transferred from [facility] regarding 14cm gluteal fluid collection. He was [...] with slacynthiaia dhavala s/p Unasyn complete 10/28/2024 presenting to OSH [...] ::A1c and UA normal on admission at [facility] ::FeUrea 48.2% (>35=> suggestive of intrinsic renal disease) - Avoid nephrotoxic drug, hypotension, sepsis, dehydration - Continuing to encourage oral hydration and treat hypercalcemia #Bladder Calculi ::Incidentally noted on CT Pelvis from OSH, asymptomatic, max diam is 1.5 cm #Anemia :: Hgb 10.4 at [facility], Hgb 8.8 on admission, Hgb 7.7 today [...] B12 328 - continue folate supplementation Isa Tunrer MD vice president of finance, PGY-1 Cosigned by Claudio Plunkett MD at [...] molecule JAK1 inhibitor), who was transferred from [facility] for a worsening of L gluteal wound [...] the context of long-standing hidradenitis suppurativa, PMID: [id number] 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 He was [...] with slacynthiaia dhavala s/p Unasyn complete 10/28/2024 presenting to OSH [...] ::Lactate 11/08: 1.2; 1.3 on 11/10 :: [facility] Blood Cx 11/08 NGTD; Wound Cx were ordered, but not collected :: Last dose of Povorcitanib 10/10 :: Blood Cx from 11/10 NGTD :: Tissue Cx from 11/12 growing rare proteus mirabilis :: s/p tissue bx 11/12 with Dermatology Plan: - continue to follow BCx from [facility] -> micro lab -> blood Cx - [...] of low BPs :: normal TSH @ [facility] #Hypercalcemia, mild ::presented with CoCa 12.5; iCa 1.69; PTH <6.3 ::25-OH vit D 79; 1.25-OH vit D 35.9 ::PTHrP elevated :: SPEP with M protein spike; :: UPEP wnl :: urine Ca and 1.25-OH vit D levels pending ::TSH :: s/p pamidronate 90 mg IV 11/12/24 - consulted Heme - free light chains ordered - continue 200 ml/hr NS #Nicotine Use - Continue home Chantix #Subacute PARUL ::Cr ~1.6 on last admission, Cr 1.44 on presentation to ::On prior admission was evaluated for this with normal UA, CT with no hydronephrosis, felt to be 2/2 NSAID use for HS ::A1c and UA normal on admission at [facility] ::FeUrea 48.2% (>35=> suggestive of intrinsic renal disease) - Avoid nephrotoxic drug, hypotension, sepsis, dehydration - Continuing to encourage oral hydration and treat hypercalcemia #Bladder Calculi ::Incidentally noted on CT Pelvis from OSH, asymptomatic, max diam is 1.5 cm #Anemia :: Hgb 10.4 at [facility], Hgb 8.8 on admission, Hgb 7.7 today [...] and B12 levels ordered Isa Turner MD vice president of finance, PGY-1 Cosigned by Claudio Plunkett MD at [...] team: Gluteal abscess Payor: [employer] Discharge disposition: [facility] Potential Barriers: medical ADOD: 2-3 days Per MD, pending final culture results. Will continue to monitor for discharge planning needs. Updated notes sent to facility. Will continue to monitor for discharge planning needs. Julisa GARZA, tubing mill setter Coordinator (TCC) [phone] Kevan La is a 49 y.o. male [...] patient please haiku or call id pager [phone] Sarah Caldwell, MS4 And [employer] Infectious [...] on 11/14/2024 Exposure target: AUC24 (range)400-600 mg/L.hr HUF14-49: 477 mg/L.hr AUC24,ss: 476 mg/L.hr Probability of [...] response, and signs/symptoms of toxicity. Alberto ErazoD [place] [id number] Pharmacist Kevan La is a 49 y.o. [...] Intake/Output Summary (Last 24 hours) at 11/13/2024 0742 Last data filed at 11/13/2024 0357 Gross [...] clindamycin, rifampin, augmentin and doxycycline, transferred from [facility] regarding 14cm gluteal fluid collection. He was [...] weeks ago s/p I&D, BCx with slackia roxanneigua s/p Unasyn complete 10/28/2024 presenting to OSH [...] ::Lactate 11/08: 1.2; 1.3 on 11/10 :: [facility] Blood Cx 11/08 NGTD; Wound Cx were ordered, but not collected :: Last dose of Povorcitanib 10/10 :: WBC 11.1 :: Blood Cx from 11/10 NGTD :: Tissue Cx from 11/12 in progress, no organism seen on Gram stain :: s/p tissue bx 11/12 with Dermatology Plan: - continue to follow BCx from [facility] -> micro lab -> blood Cx - [...] of low BPs :: normal TSH @ [facility] #Hypercalcemia, mild ::presented with CoCa 12.5; iCa 1.69; PTH <6.3 ::25-OH vit D 79; 1.25-OH vit D 35.9 ::PTHrP, SPEP, urine Ca pending :: UPEP wnl ::TSH wnl at [facility] :: Endo following :: s/p pamidronate 90 mg IV 11/12/24 - follow SPEP, urine 24 hr Ca, PTHrP, 1.25-OH vit D levels - continue 200 ml/hr NS #Nicotine Use - Continue home Chantix #Subacute PARUL ::Cr ~1.6 on last admission, 1.48 on admission to [facility] 11/08 > 1.42, prior Cr in 03/2023 was 1.2; Cr 1.44 on presentation to ::On prior admission was evaluated for this with normal UA, CT with no hydronephrosis, felt to be 2/2 NSAID use for HS ::A1c and UA normal on admission at [facility] ::FeUrea 48.2% (>35=> suggestive of intrinsic renal disease) - Avoid nephrotoxic drug, hypotension, sepsis, dehydration - Continuing to encourage oral hydration and treat hypercalcemia #Bladder Calculi ::Incidentally noted on CT Pelvis from OSH, asymptomatic, max diam is 1.5 cm #Anemia :: Hgb 10.4 at [facility], Hgb 8.8 on admission, 8.3 today, stable :: 10/10/24: decr TIBC 218 and Fe 24; normal ferritin 259 :: Holding home PO iron iso possible infection - no evidence of bleeding, pt is HD stable (BPs are soft at baseline per pt), no tachycardia, no neurological changes - will maintain active type and screen Isa Turner MD vice president of finance, PGY-1 Cosigned by Claudio Plunkett MD at [...] & Treatment Patient Name: Kevan La Department: [place] [address] Room: [address] [place] [address]-A Today's Date: 11/12/2024 Time Calculation Start Time: [...] to (R) lean/propped on elbow. Outcome Measures: [facility] Basic Mobility Turning from your back to [...] staff 11/12/24 at 5:43 PM - Doris Guzman, PT Kevan La is a 49 y.o. [...] 200 mL/hr, Last Rate: 200 mL/hr (11/11/24 1338) PRN Medications PRN medications: naloxone, ondansetron, oxyCODONE, oxyCODONE, vancomycin Assessment/Plan Kevan La is a 49 y.o. male with refractory hidradenitis supprativa (HS) not responding to povorcitinib (RCT candidate), apremilast, isotretinoin, adalimumab, infliximab, moxifloxacin/metronidazole, minocyclin, clindamycin, rifampin, augmentin and doxycycline, transferred from [facility] regarding 14cm gluteal fluid collection. He was [...] weeks ago s/p I&D, BCx with slacynthiaia roxanneigua s/p Unasyn complete 10/28/2024 presenting to OSH [...] ::Lactate 11/08: 1.2; 1.3 on 11/10 :: [facility] Blood Cx 11/08 NGTD; Wound Cx were ordered, but not collected :: Blood Cx from 11/10 NGTD :: -Last dose of Povorcitanib 10/10 :: WBC 11-> 11.5 Plan: - continue to follow BCx from [facility] -> micro lab -> blood Cx - [...] of low BPs :: normal TSH @ [facility] #Hypercalcemia, mild ::presented with CoCa 12.5; iCa 1.69; PTH <6.3 ::25-OH vit D 79 ::1.25-OH vit D, PTHrP, SPEP, urine Ca pending :: UPEP wnl ::TSH wnl at [facility] :: Endo following - follow SPEP, urine 24 hr Ca, PTHrP, 1.25-OH vit D levels - continue 200 ml/hr NS #Nicotine Use - Continue home Chantix #Subacute PARUL ::Cr ~1.6 on last admission, 1.48 on admission to [facility] 11/08 > 1.42, prior Cr in 03/2023 was 1.2; Cr 1.44 on presentation to ::On prior admission was evaluated for this with normal UA, CT with no hydronephrosis, felt to be 2/2 NSAID use for HS ::A1c and UA normal on admission at [facility] :: FeUrea 48.2% (>35=> suggestive of intrinsic renal disease) - Avoid nephrotoxic drug, hypotension, sepsis, dehydration - Continuing to encourage oral hydration and treat hypercalcemia #Bladder Calculi ::Incidentally noted on CT Pelvis from OSH, asymptomatic, max diam is 1.5 cm #Anemia :: Hgb 10.4 at [facility], Hgb 8.8 on admission, 8.3 today - no evidence of bleeding, pt is HD stable (Bps are soft at baseline per pt), no tachycardia, no neurological changes - will maintain active type and screen Isa Turner MD vice president of finance, PGY-1 Cosigned by Claudio Plunkett MD at [...] Name: Kevan La Today's Date: 11/11/2024 Room: [address] [place] [address] Time Calculation Start Time: 1234 Stop Time: [...] abscess General: Reason for Referral: returning to [facility] 11/10/2024 as a transfer from [facility] regarding 14cm gluteal fluid collection, concern of sepsis. Past Medical History Relevant to Rehab: refractory hidradenitis supprativa (HS); recently admitted to [facility] 10/11 - 10/23/2024 and underwent I&D on [...] toilet Home Living Comments: pt is from SNF. 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 Pt reports furniture walking at SNF. 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 Daily Activity Putting on and taking off [...] 3:13 PM JESSIE CEVALLOS OT Rehab Office: [phone] Kevan La is a 49 y.o. male [...] clindamycin, rifampin, augmentin and doxycycline, transferred from [facility] regarding 14cm gluteal fluid collection. He was [...] improving. 11/11 Updates: - Blood Cx from [facility] neg x 2 days; tissue Cx was never collected @ [facility] - ACS recommends no surgical intervention - awaiting further recs from Endo and wound care - consulted Dermatology, awaiting recs #Gluteal wound s/p abscess I&D 10/13 #Refractory hidradenitis suppurativa #Deep tissue SSTI #Leukocytosis ::Patient with history of refractory HS having failed multiple modalities, now c/b gluteal abscess which he was admitted for 3 weeks ago s/p I&D, BCx with slacynthiaia roxanneigua s/p Unasyn complete 10/28/2024 presenting to OSH [...] ::Lactate 11/08: 1.2; 1.3 on 11/10 :: [facility]; Wound Cx were ordered, but not collected :: Blood Cx 11/10 NGTD Plan: - continue to follow BCx from [facility] -> micro lab -> blood Cx - [...] of low BPs :: normal TSH @ [facility] #Hypercalcemia, mild ::presented with CoCa 12.5; iCa 1.69; PTH <6.3 ::25-OH vit D 79 ::1.25-OH vit D, PTHrP, UPEP, SPEP, urine Ca pending ::TSH wnl at [facility] :: Endo following - follow UPEP, SPEP, urine 24 hr Ca, PTHrP, 1.25-OH vit D levels - continue 200 ml/hr NS #Nicotine Use - Continue home Chantix #Subacute PARUL ::Cr ~1.6 on last admission, 1.48 on admission to [facility] 11/08 > 1.42, prior Cr in 03/2023 was 1.2; Cr 1.44 on presentation to ::On prior admission was evaluated for this with normal UA, CT with no hydronephrosis, felt to be 2/2 NSAID use for HS ::A1c and UA normal on admission at [facility] :: FeUrea 48.2% (>35=> suggestive of intrinsic renal disease) - Avoid nephrotoxic drug, hypotension, sepsis, dehydration - Continuing to encourage oral hydration and treat hypercalcemia #Bladder Calculi ::Incidentally noted on CT Pelvis from OSH, asymptomatic, max diam is 1.5 cm #Anemia :: Hgb 10.4 at [facility], Hgb 8.8 on admission, 8.3 today - no evidence of bleeding, pt is HD stable (Bps are soft at baseline per pt), no tachycardia, no neurological changes - will maintain active type and screen Isa Turner MD vice president of finance, PGY-1 Cosigned by Claudio Plunkett MD at [...] team: Gluteal abscess Payor: Vincentcristian Discharge disposition: [facility] Potential Barriers: none ADOD: 3-4 days Per MD, pending plans from ACS. Updated notes sent to facility and requested update if patient will need precert to return. Will continue to monitor for discharge planning needs. Julisa GARZA, tubing mill setter Coordinator (TCC) [phone] Pharmacy Admission Order Reconciliation Review Kevan La [...] team at any time. Ti Mays PharmD [facility] [address] [place], Room[address] [place] [address] Please reach out via Secure Chat for questions, or if no response call [employer] or [facility] Pharmacy Medication History Review Kevan La is a 49 y.o. male admitted for No Principal Problem: There is no principal problem currently on the Problem List. Please update the Problem List and refresh.. Pharmacy reviewed the patient's xypyf-[id number]-fptlpsuky medications and allergies for accuracy. Medications ADDED Multivitamin Ibuprofen OTC 200 mg Ensure plus Medications CHANGED Miralax Medications REMOVED/NOT TAKING Alteplase 2 mg Leda-colace The list below reflects the updated [facility] list. Prior to Admission Medications Prescriptions Last [...] at discharge. Pharmacy has been updated to [facility]. Sources [facility] Pharmacy dispense history Patient interview Good historian Chart Review Discharge summary 10/23/24 Additional Comments N/A Ti Mays PharmD [facility] [address] [facility], Room# [address] [place] [address] Please reach out via Secure Chat for questions, or if no response call [employer] or [employer] Vancomycin Dosing by Pharmacy- FOLLOW UP Kevan [...] on 11/12/2024 Exposure target: AUC24 (range)400-600 mg/L.hr [id number]: 500 mg/L.hr AUC24,ss: 488 mg/L.hr Probability of [...] clindamycin, rifampin, augmentin and doxycycline, transferred from [facility] regarding 14cm gluteal fluid collection. He was [...] - Follow BCx and Wound Cx from [facility] [phone] micro lab - ACS Surgery consulted - [...] of low BPs :: normal TSH @ [facility] #Hypercalcemia, mild ::CoCa 12.5; iCa 1.69; PTH <6.3 ::25-OH vit D 79 ::1.25-OH vit D, PTHrP, UPEP, SPEP, urine Ca pending ::TSH wnl at [facility] - 1 L NS bolus given this AM, 200 ml/hr NS - PM RFP - Endo consulted, appreciate recommendations #Nicotine Use - Continue home Chantix #Subacute PARUL ::Cr ~1.6 on last admission, 1.48 on admission to [facility] 11/08 > 1.42, prior Cr in 03/2023 was 1.2; Cr 1.44 on presentation to ::On prior admission was evaluated for this with normal UA, CT with no hydronephrosis, felt to be 2/2 NSAID use for HS ::A1c and UA normal on admission at [facility] - Avoid nephrotoxic drug, hypotension, sepsis, dehydration - Continuing to encourage oral hydration #Bladder Calculi ::Incidentally noted on CT Pelvis from OSH, asymptomatic, max diam is 1.5 cm #Anemia :: Hgb 10.4 at [facility], Hgb 8.8 on admission - no evidence of bleeding, pt is HD stable (Bps are soft at baseline per pt), no tachycardia - will maintain active type and screen Isa Turner MD vice president of finance, PGY-1 Cosigned by Claudio Plunkett MD at [...] Living Arrangements Other (Comment) (Pt is from [facility]. Prior to his SNF stay, pt lived at home with his dog.) Support Systems Family members Assistance Needed Await PT/OT recommendations. Pt was at SNF for IV atbs and wound care. Type of Residence long-term facility Do you have animals or pets at home? No (Pt sent his dog to stay with his brother in [place].) Home or Post Acute Services Post acute facilities (Rehab/SNF/etc) Type of Post Acute Facility Services long-term Expected Discharge Disposition SNF Does the patient [...] were you homeless or living in a intermediate (including now)? N Transportation Needs In the [...] Met with pt and introduced myself as child adolescent care and member of the Care Transitions team for discharge planning. Pt was recently admitted from 10/10-10/23 for a gluteal abscess. Pt was discharged to [facility] (with pending Medicaid #[id number]) for IV atbs and wound care. Pt would like to return to [facility], if SNF is needed at discharge. Pt is currently receiving IV atbs, await PT/OT evaluations. Referral was sent to [facility] SNF for return via [facility]. Prior to his SNF stay, pt was living at home alone. 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 Pt's address, phone number and contact information was verified, pt's brother Omkar was added. Email sent to the insurance DL to verify if pt's Medicaid is active. Pt does not have any other questions/concerns at this time. Aida VELASQUEZ, RN- Transitional Recovery Agent (TCC) [phone] documented in this encounter [facility] Work Phone: 11-27-2024 Hospital Discharge instructions Danna Soares MD - 11/27/2024 12:16 PM EDT Discharge Instructions Dear Kevan La, You were admitted to [facility] for your worsening gluteal wound and concern [...] at this dosing while you are at [facility]. The supportive oncology doctors will see you once you leave [facility] and will continue prescribing these medicines at that time. If you would like to bead picker your medications from another pharmacy, ask your pharmacy to contact [facility] pharmacy to transfer over the prescriptions Appointments/Follow-Up: We have requested an automated system to call you to schedule; however if you do not hear from them in 3 days, please call [facility] appointment line: [phone] or to make the appointment yourself Dr. Jiang (oncology at [facility]) 11/29, 2:20pm Supportive oncology follow-up with Astrid Hawley on 12/17 at 1pm Please call and schedule appointment with your primary care doctor within 2 week, tell them that patient was recently admitted to the hospital. If you need to establish with new primary care doctor, please call and schedule an appointment with [facility]: phone: [phone] Lab work needed: No need to make appointment or have prescription. Please go to any labs to complete below None It was a pleasure taking care of you, Your Care Team documented in this encounter [facility] Work Phone: 11-26-2024 Miscellaneous Notes The patient's goals for the shift include The clinical goals for the shift include Pt. pain will be controlled this shift [id number] Over the shift, the patient's pain has [...] and discussed patient case with supportive oncology GOODYEAR WELTER, Omaira Clayton APRN and primary team. Patient with ongoing frequent PRN opioid requirements and suboptimally controlled pain. Plans for upcoming discharge. 24H Opioid Requirements Past 24h opioid requirements (11/24-11/25, [id number]): Fentanyl 50 mcg/h TD patch x 1 [...] medications to patient prior to discharge via [facility] pharmacy. Prescriptions will need to be sent [...] for additional questions or concerns. SIGNATURE: Nellie Douglass, PharmD Palliative Medicine Clinical Automobile Appraiser Supportive Oncology Services PAGER/CONTACT: Contact information: Supportive and Palliative Oncology Monday-Monday 8 AM-5 PM [employer] Secure chat or pager [phone]. After hours and weekends: pager [phone] Cosigned by TRAVIS Pinzon at 11/25/2024 1:08 PM EDT Associated attestation - Omaira Clayton [...] way of shared electronic medical record or [id number]. Medical complexity was high level due to due to complexity of problems, extensive data review, and high risk of management/treatment. I spent 15 minutes in the care of this patient which included chart review, interviewing patient/family, discussion with primary team, coordination of care, and documentation. TRAVIS Pinzon PATIENT: KEVAN LA : 1975 ADMIT DATE: 11/10/2024 3:29 AM DISCH DATE: RESPONDING PROVIDER #: [id number] PROVIDER RESPONSE TEXT: 11/15 punch biopsy taken [...] 3:29 AM DISCH DATE: RESPONDING PROVIDER #: [id number] PROVIDER RESPONSE TEXT: Anemia of chronic disease [...] next dressing change Outcome: Progressing Flowsheets (Taken 11/24/2024 0111) Decreased wound size/increased tissue granulation at next [...] next dressing change Outcome: Progressing Flowsheets (Taken 11/23/2024150) Decreased wound size/increased tissue granulation at next dressing change: Promote sleep for wound healing Goal: Participates in plan/prevention/treatment measures Outcome: Progressing Flowsheets (Taken 11/23/2024150) Participates in plan/prevention/treatment measures: Discuss with provider [...] unresponsive to multiple treatments was transferred from [facility] due to gluteal abscess, for which he [...] MD Hematology-Oncology Fellow, PGY4 Hematology Consult Pager: [phone] Problem: Skin Goal: Decreased wound size/increased tissue [...] man with refractory hidradenitis supprativa transferred from [facility] on 11/10/24 with worsening chronic gluteal wound [...] 075 by Lily Mario RN Flowsheets (Taken 11/18/2024 075) Promote skin healing: Protective dressings over bony [...] healing 11/18/2024 075 by Lily Mario RN Outcome: [...] with improved pain control throughout shift 11/18/2024 0752 by Lily Mario RN [...] related to pain meds throughout the shift 11/18/2024751 by Lily Mario RN Outcome: Progressing [...] skin healing Outcome: Progressing Flowsheets (Taken 11/16/2024 115) Promote skin healing: Assess skin/pad under line(s)/device(s) [...] and Palliative Oncology Monday-Monday 8 AM-5 PM [employer] Secure chat or pager [phone]. After hours and weekends: pager [phone] Brief heme note: Kevan La is a 49 y.o. male with PMHx of HS that is refractory and unresponsive to multiple treatments was transferred from [facility] due to gluteal abscess, for which he [...] MD Hematology-Oncology Fellow, PGY4 Hematology Consult Pager: [phone] Cosigned by Fransisca Diaz MD at 11/16/2024 [...] Rapid Response Pager time: [phone] Arrival time: 165 Event end time: 1800 Location: [address] [] Triage by phone or secure messaging Rapid response initiated by: [] Rapid response RN [] Family [] Nursing Continuous Absorption Process Operator [x] Physician [] RADAR auto page [] Sepsis auto-page [x] RN [] RT [] GOODYEAR WELTER/[place] [] Other: Primary reason for call: [] [...] Response Nurse Note: Rapid Response Pager time: [phone] Arrival time: 1509 Event end time: 1529 Location: [address] [] Triage by phone or secure messaging Rapid response initiated by: [] Rapid response RN [] Family [] Nursing Continuous Absorption Process Operator [] Physician [] RADAR auto page [] Sepsis auto-page [x] RN [] RT [] GOODYEAR WELTER/[place] [] Other: Primary reason for call: [] [...] blankets and it self resolved. DACR and Mosre Team @bedside. Per Primary Team, patient is [...] discussed with IR attending Dr Prince. Ryland Wni, PGY3 For IR consults, call [phone] (M-F 7a-5p) EMERGENT IR Pager: [phone] (M-F 5p-7a) ([place], [place] 24hr) PATIENT: KEVAN LA : 1975 ADMIT DATE: 11/10/2024 3:29 AM DISCH DATE: RESPONDING PROVIDER #: [id number] PROVIDER RESPONSE TEXT: I agree with hotel office manager diagnosis of Moderate malnutrition on 11/11/2024 CDI [...] suppurativa and gluteal abscess. Clinical Indicators: 11/11 Supervisor Costuming consult: "Moderate malnutrition related to acute disease or injury As Evidenced by: meeting < 75% of EER for > 1 week, mild fat loss and muscle wasting and 10.2% weight loss x approximately 3 weeks." 11/11 hotel office manager note indicates pt eating poorly at SNF due to poor food quality and receives protein drink only intermittently. BMI 25.93 Treatment: Supervisor Costuming consult recommending regular diet, Ensure Plus QD. Risk Factors: Refractory HS. Gluteal abscess. Eating poorly at SNF. Options provided: -- I agree with hotel office manager diagnosis of Moderate malnutrition on 11/11/2024 -- [...] MD PGY-1 General Surgery Acute Care Surgery [id number] The patient's goals for the shift include The clinical goals for the shift include maintain safety Problem: Skin Goal: Prevent/manage excess moisture Outcome: Progressing Flowsheets (Taken 11/12/2024 0339) Prevent/manage excess moisture: Moisturize dry skin Goal: [...] RN Outcome: Progressing Goal: Prevent/manage excess moisture 11/10/2024 09 by Soheila Oscar RN Outcome: Progressing 11/10/2024 09 by Soheila Oscar RN Outcome: Progressing Goal: Prevent/minimize sheer/friction injuries 11/10/2024912 by Soheila Oscar RN Outcome: Progressing 11/10/2024911 by Soheila Oscar RN Outcome: Progressing Goal: Promote/optimize nutrition 11/10/2024912 by Soheila Oscar RN Outcome: Progressing 11/10/2024911 by Soheila Oscar RN Outcome: Progressing Goal: Promote skin healing 11/10/2024 09 by Soheila Oscar RN Outcome: [...] with improved pain control throughout the shift 11/10/2024 09 by Soheila Oscar RN Outcome: Progressing 11/10/2024911 by Soheila Oscar RN Outcome: Progressing Goal: Performs ADL's with improved pain control throughout shift 11/10/2024912 by Soheila Oscar RN Outcome: Progressing 11/10/2024911 by Soheila Oscar RN Outcome: Progressing Goal: Participates in PT with improved pain control throughout the shift 11/10/2024912 by Soehila Oscar RN Outcome: Progressing 11/10/2024911 by Soheila Oscar RN Outcome: Progressing Goal: Free from opioid side effects throughout the shift 11/10/2024912 by Soheila Oscar RN Outcome: Progressing 11/10/2024911 by Soheila Oscar RN Outcome: Progressing Goal: Free from acute confusion related to pain meds throughout the shift 11/10/2024912 by Soheila Oscar RN Outcome: Progressing 11/10/2024911 by Soheila Oscar RN Outcome: Progressing The clinical goals for the shift include pt will remian free from injury throughout shift documented in this encounter [facility] Work Phone: 11-26-2024 Nurse Note Wound care [...] controlled. Beata NEWTON documented in this encounter [facility] Work Phone: 11-22-2024 Consult note Associated Order [...] molecule JAK1 inhibitor), who was transferred from [facility] for a worsening of L gluteal wound [...] Vashe wound cleanser ([employer] order # [id number]). Pack with Vashe moistened wet to dry kerlix gauze cover with ABD pad and paper tape. Recommendation: BID for distal edge of growth on distal posterior left thigh. Cover wounds with Vashe wound cleanser ([employer] order #[id number]) soaked 4 x 4 cm sterile gauze for 1-5 minutes, then gently pat dry. Cover draining wounds with 2-3 layers of accordion folded Aquacel Ag then cover with ABD pad and paper tape. (DO not cover growth as it causes the patient discomfort. Recommendations: BID for left lateral hip. Cover wounds with Vashe wound cleanser ([employer] order #[id number]) soaked 4 x 4 cm sterile gauze for 1-5 minutes, then gently pat dry. Apply clindamycin as directed by dermatology. Cover draining wounds with Aquacel Ag (Silver) ([employer] order #[id number]) Cover with Mepilex border dressing. Wound Team Plan: While inpatient, Secure chat with questions or reconsult wound care if condition worsens or changes. For urgent communications please message the group through Kion[employer] messaging at: [facility] Wound Care Team, Thank you. Lori Baires [...] tentatively arrange follow-up with Dr. Jiang at [facility], pending transport capabilities of eventual SNF - [...] MD Hematology-Oncology Fellow, PGY5 Hematology Consult Pager: [phone] Oncology Consult Pager: [phone] Cosigned by Sreedhar Jiang MD at 11/19/2024 [...] continue his care with our team ([place]- [place], [facility]- [place], [place]- Dr. Valentino). Associated Order(s): Inpatient consult to [...] integrative heme/onc services. Music therapy, art therapy, ad trafficker and pet therapy offered to pt, pt [...] 11/08/2024 [facility] Name: [facility]EVAN LA [facility] 1975 [id number] Exam Date/Time: 11/08/2024 16:38 Procedure: CT PELVIS [...] mm. Report Dictated on Electronically Signed By: uJlio Sears MD Electronically Signed Date/Time: 11/08/2024 5:20 PM EST Lower extremity venous duplex bilateral Result Date: 10/21/2024 [place] [address] and Vascular Lab Report [facility] US LOWER EXTREMITY VENOUS DUPLEX BILATERAL Patient Name: KEVAN BESSIE Miranda Physician: [id number] Colin MD Study Date: 10/21/2024 Ordering 61800 DELGADO Dhillon Physician: THELMA MRN/PID: [id number] Technologist: Javier Dhaliwal T Technologist 2: Date of /Age: 9 1975 years Gender: M Admission Status: Inpatient Location [facility] Performed: Diagnosis/ICD: Pain in left leg-M79.605 CPT Codes: 26838 Peripheral venous duplex scan for DVT complete [...] Spontaneous/Phasic Peroneal Yes None PTV Yes None [id number] Viki Colin MD Final Bedside PICC Imaging [...] anxiety, fatigue, nausea, depression and pain. The [facility] Integrative Medicine Symptom Management program offers multi-disciplinary [...] pt education today. Pt declined services. -Acupressure, gua sha - pt declined -Gentle bodywork and stretching as tolerated - pt declined -Art therapy - pt agreeable; consult placed -Music therapy - pt agreeable; consult placed -Fur Clipper - pt agreeable; consult placed -Pet therapy [...] of this patient. TRAVIS Patel (available by [place]) [facility] Inpatient Integrative Medicine I spent 45 minutes in the care of this patient which included chart review, interviewing patient/family, discussion with primary team, coordination of care, and documentation. Medical Decision Making was high level due to high complexity of problems, extensive data review, and high risk of management/treatment. Associated Order(s): Inpatient consult to [facility] Adult Supportive Oncology SUPPORTIVE AND PALLIATIVE ONCOLOGY [...] medications to patient prior to discharge via [facility] pharmacy. Prescriptions will need to be sent 48-72 hours prior to discharge so that a prior authorization can be completed. Discharge date: unknown pending acute issues Patient does not qualify for an appointment with Outpatient Supportive Oncology- needs to establish with Oncology outpatient SIGNATURE: TRAVIS Rodas PAGER/CONTACT: Contact information: Supportive and Palliative Oncology Monday-Monday 8 AM-5 PM Osen chat or pager [phone]. After hours and weekends: pager [phone] Inpatient consult to [facility] Adult Supportive Oncology Consult performed by: Lynette Segovia APRN-PLANTING MATERIAL UNLOADER Consult ordered by: Claudio Plunkett MD PALLIATIVE MEDICINE OUTPATIENT PROVIDER: None CURRENT ATTENDING PROVIDER: Claudio Plunkett MD Medical Oncologist: No care prepared foods team leader to display Radiation Oncologist: No care prepared foods team leader to display Primary Physician: No primary care [...] alone. Has supportive brother and parents in [place], [place]. 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 Social History: reports that he [...] Value Ventricular Rate 77 Atrial Rate 77 DC Interval 146 QRS Duration 108 QT Interval 368 QTC Calculation(Bazett) 416 P Macon 55 R Macon 72 T Macon 66 QRS Count 13 Q Onset 211 [...] limitations due to pain Joys/meaning/strength: Family and [place] Understanding of health: Demonstrates good prognostic understanding [...] of shared electronic medical record/secure chat/email or [id number]. We will continue to follow. Please contact us for additional questions or concerns. SIGNATURE: TRAVIS Rodas PAGER/CONTACT: Contact information: Supportive and Palliative Oncology Monday-Monday 8 AM-5 PM [employer] Secure chat or pager [phone]. After hours and weekends: pager [phone] Associated Order(s): IP CONSULT TO HEMATOLOGY Name: [...] unresponsive to multiple treatments was transferred from [facility] due to gluteal abscess, for which he [...] Perry Baires 10/10/2024 5:20 PM Dictation workstation: [id number] === 10/10/24 === CT PELVIS W IV [...] as stated. This study was interpreted at [place], [place] Signed by: Beronica Valentin 10/10/2024 11:03 PM Dictation workstation: [id number] Assessment/Plan Kevan La is a 49 y.o. male with PMHx of refractory HS that is unresponsive to multiple treatments was transferred from [facility] due to left gluteal randell abscess, for [...] MD Hematology-Oncology Fellow, PGY4 Hematology Consult Pager: [phone] Cosigned by Fransisca Diaz MD at 11/15/2024 [...] Patient was then brought from SNF to [facility] on 11/08 due to concern for worsening L buttock and gluteal HS and possible sepsis. Patient was placed on vanc/zosyn for sepsis; wound and blood cx collected at that time show NGTD. CT scan from [facility] revealed large ulcerative wound in left buttock [...] 200 mL/hr, Last Rate: 200 mL/hr (11/11/24 8818) sodium chloride 0.9%, 200 mL/hr PRN medications [...] molecule JAK1 inhibitor), who was transferred from [facility] for a worsening of L gluteal wound [...] Vashe wound cleanser ([employer] order # [id number]). Pack with Vashe moistened wet to dry kerlix gauze cover with ABD pad and paper tape. 11/11/24 1700 Wound 09/13/24 Other (comment) Buttock Left Date First Assessed/Time First Assessed: 09/13/24 2355 Present on Original Admission: Yes Hand Hygiene [...] with Vashe wound cleanser ([employer] order #[id number]) soaked 4 x 4 cm sterile gauze for 1-5 minutes, then gently pat dry. Cover draining wounds with 2-3 layers of accordion folded Aquacel Ag then cover with ABD pad and paper tape. (DO not cover growth as it causes the patient discomfort. Wound location: Lateral Left hip Recommendations: BID Cover wounds with Vashe wound cleanser ([employer] order #[id number]) soaked 4 x 4 cm sterile gauze for 1-5 minutes, then gently pat dry. Apply clindamycin as directed by dermatology. Cover draining wounds with Aquacel Ag (Silver) ([employer] order #[id number]) Cover with Mepilex border dressing. Wound Team [...] molecule JAK1 inhibitor), who was transferred from [facility] for a worsening of L gluteal wound [...] Per IM notes: Patient last admitted at [facility] 10/11 - 10/23/2024 for a similar complaint [...] Blood cultures later resulted with staph hominis maryia priya on 10/16 and ID was consulted with plan to continue Unasyn until 10/28/2024. He was discharged with PICC line to [facility] with plan to follow-up with Dermatology 11/12/2024 for HS-301 trial medication. On 11/08/2024 the patient was sent to [facility] from [facility] for possible sepsis. On arrival to the [...] his stay and he was transferred to [facility] for further care. The patient was seen [...] He was able to tolerate food at [facility]. Patient notes he has been bedbound for some time now, since at least 06/2023 which he attributes to weakness in his legs/feet." HS history: He reports a history of HS from 2016. Previous therapies include doxycycline, minocycline, isotretinoin, clindamycin/rifampin, Humira, Remicade, staph decolonization for mupirocin, moxifloxacin/metronidazole, and apremilast. He was being treated by [facility] Dermatology. Pt reports that he has been [...] once daily in the morning. Historical Provider, MD mv-min/folic/K1/lycopen/lutein (MEN 50 PLUS MULTIVITAMIN ORAL) [...] cultures. Will follow cultures already obtained at [facility] and will obtain tissue culture 11/12/24. - [...] of left gluteal disease. Pt transferred from [facility] with worsened pain, swelling and drainage from [...] from last 7 days Lab Units 11/11/24 0911/10/24 0530 WBC AUTO x10*3/uL 11.0 11.8* RBC [...] , Vit B12: No results found for: [id number] Nutrition Specific Medications: Scheduled medications acetaminophen, 975 [...] Order(s): IP CONSULT TO ACUTE CARE SURGERY [facility] ACUTE CARE SURGERY - HISTORY AND PHYSICAL / CONSULT Patient Name: Kevan La Admit Date: [id number] : 1975 AGE: 49 y.o. GENDER: male TODAY'S ASSESSMENT AND PLAN OF CARE: 49 year old male with significant history of hidradenitis suppurativa, who recently underwent I&D with acute care surgery on 10/13, was transferred from [facility] with concern of a gluteal fluid collection. Acute care surgery was consulted for consideration of repeat I&D. Patient is currently hemodynamically stable. - No emergent surgical intervention indicated at this time. Will need to review imaging for possible mass vs infection before potential surgical intervention. Radiology imaging request sent for CT pelvis from [facility]. if not able to transfer imaging from [facility], may need repeat CT scan. Tadeo Cano MD PGY 5 General Surgery Acute Care Surgery [id number] CHIEF COMPLAINT/REASON FOR CONSULT: 49 year old male with significant history of hidradenitis suppurativa, who recently underwent I&D with acute care surgery on 10/13, was transferred from [facility] with concern of a gluteal fluid collection. Acute care surgery was consulted for consideration of repeat I&D. Briefly this patient has a history of refractory HS and did not respond to multiple lines of treatment. He was admitted to [facility] between 10/11-10/23 and underwent I&D on 10/13 for infection control. He had positive blood culture and was on antibiotics. He was eventually discharged to [facility]. On 11/08 patient was brought to [facility] for concern of sepsis. He was started [...] Need to review most recent CT from [facility] for comparison, radiology request sent. LABS: Results [...] of left gluteal disease. Pt transferred from [facility] with worsened pain, swelling and drainage from [...] notable for wbc 11.8. CT report from [facility] notes concern for a 15cm enhancing gluteal mass however images not available. We have requested images from [facility] and will evaluate these prior to determining whether further drainage or biopsy are needed. Eitan Muhammad MD Trauma, Critical Care, and Acute Care Surgery Pager: [phone] Associated Order(s): Inpatient consult to Endocrinology Inpatient [...] 2/2 NSAIDs use for HS?, returning to [facility] 11/10/2024 as a transfer from [facility] regarding 14cm gluteal fluid collection. Notably the patient was recently admitted to [facility] 10/11 - 10/23/2024 for a similar complaint, imaging showed showed worsening infection in L. gluteus randell with serpiginous fluid pockets c/w abscess (9.2 x 5.7 x 13.2cm). He was started on broad spectrum iv antibiotics , underwent I&D with ACS on 10/13 c/b arterial bleed which was stitched. He was discharged with PICC line to [facility] with plan to follow-up with Dermatology 11/12/2024 for HS-301 trial medication. On 11/08/2024 the patient was sent to [facility] from [facility] for possible sepsis. On arrival to the [...] his stay and he was transferred to [facility] for further care. The patient was seen [...] He was able to tolerate food at [facility]. Patient notes he has been bedbound for [...] weeks since he was [facility] to the [facility] Denies any chest pain, shortness of breath, [...] was not receiving any PT at the [facility]. He also mentioned that his activity level [...] ondansetron, oxyCODONE, vancomycin -11/10/24: Ionized Real 1.69 [facility] Reference Range & Units 10/17/24 19:26 10/18/24 [...] 2/2 NSAIDs use for HS?, returning to [facility] 11/10/2024 as a transfer from [facility] regarding 14cm gluteal fluid collection. Endocrinology consulted [...] MD Endocrinology fellow, PGY 5 Endocrinology pager [phone], secure message 8 AM to 5 PM. [...] on 11/10/2024 Exposure target: AUC24 (range)400-600 mg/L.hr MWG81-55: 380 mg/L.hr AUC24,ss: 507 mg/L.hr Probability of AUC24 > 400: 76 % Follow-up level tomorrow morning. Will continue to monitor renal function daily while on vancomycin and order serum creatinine at least every 48 hours if not already ordered. Follow for continued vancomycin needs, clinical response, and signs/symptoms of toxicity. Long Swain PharmD documented in this encounter [facility] Work Phone: 11-15-2024 Procedure note Associated Ord er(s): Biopsy Post-Procedure Diagnose(s): Skin lesion Biopsy Date/Time: 11/15/2024 11:31 AM Performed by: Brigitte Coy MD Authorized by: Lauri Mesa MD Consent: Consent obtained: Verbal Consent given by: Patient Risks, benefits, and alternatives were discussed: yes Risks discussed: Bleeding, infection, pain and poor cosmetic result Alternatives discussed: No treatment [place] protocol: Procedure explained and questions answered to [...] poor cosmetic result Alternatives discussed: No treatment [place] protocol: Procedure explained and questions answered to [...] Lauri Mesa MD documented in this encounter [facility] Work Phone: 11-10-2024 History and physical note History Of Present Illness Kevan La is a 49 y.o. male with refractory hidradenitis supprativa (HS) not responding to povorcitinib (RCT candidate), apremilast, isotretinoin, adalimumab, infliximab, moxifloxacin/metronidazole, minocyclin, clindamycin, rifampin, augmentin and doxycycline, returning to [facility] 11/10/2024 as a transfer from [facility] regarding 14cm gluteal fluid collection. Notably the patient was recently admitted to [facility] 10/11 - 10/23/2024 for a similar complaint [...] Blood cultures later resulted with staph hominis shanthicynthiaia roxannemohindera on 10/16 and ID was consulted with plan to continue Unasyn until 10/28/2024. He was discharged with PICC line to [facility] with plan to follow-up with Dermatology 11/12/2024 for HS-301 trial medication. On 11/08/2024 the patient was sent to [facility] from [facility] for possible sepsis. On arrival to the [...] his stay and he was transferred to [facility] for further care. The patient was seen [...] He was able to tolerate food at [facility]. Patient notes he has been bedbound for [...] Alb 2.5 A1c 11/08/2024: 5.2 UA 11/08/2024: Ray CT Pelvis 11/08/2024: There is a large [...] Bacteria 10/10/24 Blood culture from Peripheral Venipuncture Marytatianna oliveiramohindera S S S S S 10/10/24 Blood [...] clindamycin, rifampin, augmentin and doxycycline, returning to [facility] 11/10/2024 as a transfer from [facility] regarding 14cm gluteal fluid collection. He was [...] on last admission, 1.48 on admission to [facility] 11/08 > 1.42, prior Cr in 03/2023 [...] Continue with antibiotics. documented in this encounter [facility] Work Phone: 11-09-2024 Note Internal Medicine: M [...] a 49 y.o. male that presented to [facility] on 11/08/2024 and was admitted for wound check. Patient arrived to [facility] from SNF fro possible sepsis related to [...] here. Decision was to transfer patient to [facility] for further care. Of note, patient has [...] to Address at Followup Visit: Not Applicable [facility] 11-09-2024 Hospital course Narrative Internal Medicine: Med [...] a 49 y.o. male that presented to [facility] on 11/08/2024 and was admitted for wound check. Patient arrived to [facility] from SNF fro possible sepsis related to [...] here. Decision was to transfer patient to [facility] for further care. Of note, patient has [...] 9:40 PM EST documented in this encounter [facility] 11-09-2024 Nurse Note transfer center called, stated still no bed are available but checking on if any changes in pt condition. Updated vitals given and isolation status confirmed. Enrique at the transfer center given unit phone number and he stated they will reach out when bed available. [facility] 11-09-2024 Nurse Note transfer center called, stated still no bed are available but checking on if any changes in pt condition. Updated vitals given and isolation status confirmed. Enrique at the transfer center given unit phone number and he stated they will reach out when bed available. documented in this encounter [facility] 11-09-2024 Plan of care note Problem: Knowledge [...] My discharge needs are met Outcome: Progressing [facility] 11-09-2024 Miscellaneous Notes Problem: Knowledge Deficit Goal: [...] met Outcome: Progressing documented in this encounter [facility] 11-09-2024 History of Present illness Narrative Patient [...] creatinine, and vancomycin levels interfaced automatically to [employer] and data has been analyzed and interpreted. [...] chart review patient will be transferred to [facility] for further care, currently waiting for [...] 16.4* ABGs: No results for input(s): "PHART", "WJB7XND", "PO2ART", "BUM9ZQD", "SO2ART", "H4NDQFBI" in the last 72 hours. Lactic Acid: [...] to Discharge: patient will be transferred to [facility] for further care, currently waiting for bed assignment. Patient has been receiving care at including clinical trial medications for his hidradenitis suppurativa. - Goals of Care: FULL CODE - DVT Prophylaxis: Lovenox 40 q24hr - CrCl >30 - GI Prophylaxis: Protonix daily - Diet: NPO Cosigned by Paulino Larios MD at 11/09/2024 1:50 PM EST documented in this encounter [facility] 11-09-2024 Note Pharmacy to Dose Van comycin - Progress Note Lab Results Component Value Date CREATININE 1.42 (H) 11/09/2024 BUN 19 11/09/2024 WBC 13.0 (H) 11/09/2024 Doses, serum creatinine, and vancomycin levels interfaced automatically to [place] and data has been analyzed and interpreted. [...] DATE: 11/09/24 TIME: 8:58 AM Kristy Ferguson [facility] Clinical Pharmacist Available via Secure Chat [facility] 11-09-2024 Note Med Team Progress No delfino [...] chart review patient will be transferred to [facility] for further care, currently waiting for [...] 16.4* ABGs: No results for input(s): "PHART", "HDJ5GDK", "PO2ART", "IIY9LNH", "SO2ART", "U9VBMSMK" in the last 72 hours. Lactic Acid: [...] count of 634 (more content not included)... [facility] 11-09-2024 Emergency department Note This RN spoke to Enrique at [facility] for patient update. He stated that they are currently waiting for a bed assignment for the patient at [facility]. [facility] 11-09-2024 Emergency department Note This RN spoke to Enrique at [facility] for patient update. He stated that they are currently waiting for a bed assignment for the patient at [facility]. Provider messaged about BP and MAP [...] Resource Strain: Medium Risk (10/12/2024) Received from [facility] Overall Financial Resource Strain (CARDIA) Difficulty of Paying Living Expenses: Somewhat hard Food Insecurity: Food Insecurity Present (10/11/2024) Received from [facility] Hunger Vital Sign Worried About Running Out of Food in the Last Year: Sometimes true Ran Out of Food in the Last Year: Sometimes true Transportation Needs: No Transportation Needs (10/12/2024) Received from [facility] PRAPARE - Transportation Lack of Transportation (Medical): No Lack of Transportation (Non-Medical): No Intimate Partner Violence: Not At Risk (10/11/2024) Received from [facility] Humiliation, Afraid, Rape, and Kick questionnaire Fear of Current or Ex-Partner: No Emotionally Abused: No Physically Abused: No Sexually Abused: No Housing Stability: Low Risk (10/12/2024) Received from [facility] Housing Stability Vital Sign Unable to Pay for Housing in the Last Year: No Number of Times Moved in the Last Year: 1 Homeless in the Last Year: No Recent Concern: Housing Stability - High Risk (09/17/2024) Received from [facility] Housing Stability Vital Sign Unable to Pay [...] Procedure Abnormality Status --------- ------ Culture, Aerobic Bacteri...[[id number]] Anaerobic culture[[id number]] Please view results for these tests on the individual orders. CULTURE, AEROBIC BACTERIA WITH GRAM STAIN CULTURE ANAEROBIC CBC WITH AUTO DIFFERENTIAL COMPREHENSIVE METABOLIC PANEL LACTIC ACID WITH REFLEX COMPLETE URINALYSIS WITH REFLEX TO CULTURE Narrative: The following orders were created for panel order Urinalysis Complete with reflex to Culture. Procedure Abnormality Status --------- ------ Complete Urinalysis[[id number]] Please view results for these tests on [...] Medicine Provider Juvenal Fierro MD Resident 11/08/24 2991 Cosigned by Fer Kennedy MD at 11/08/2024 6:55 PM EST Emergency Department Encounter [facility] EMERGENCY DEPT Patient: Kevan La : 1975 [...] pressure and wound check. Patient coming from [facility] for possible sepsis. Patient has chronic refractory [...] MD 11/08/24 1651 documented in this encounter [facility] 11-08-2024 Consult note Formatting of [...] creatinine, and vancomycin levels interfaced automatically to [place] and data has been analyzed and interpreted. [...] PharmD Clinical Pharmacist Available via Secure Chat [facility] 11-08-2024 Consult note Formatting of th [...] creatinine, and vancomycin levels interfaced automatically to [place] and data has been analyzed and interpreted. [...] via Secure Chat documented in this encounter [facility] 11-08-2024 Emergency department Note Provider messaged about BP and MAP [facility] 11-08-2024 Emergency department Note Provider messaged about orders [facility] 11-08-2024 History and physical note Internal Medicine: Med Team Initial History and Physical Kevan La : 1975(49 y.o.) Date: November 08, 2024 TEAM: Isidro Attending: Dr. Larios Subjective: Chief Complaint: Wound Check HPI Kevan La is a 49 y.o. male with PMH chronic hidradenitis suppurativa that presented to [facility] on 11/08/[address] [facility]. Patient was seen at for severe at [...] follow-up with dermatology 11/12/2024. Patient arrived to [facility] ED from [facility] for possible sepsis related to chronic hidradenitis affecting mostly his left hip and going down into his left thigh. At [facility] nurse noted that his wounds were draining [...] 16.5* ABGs: No results for input(s): "PHART", "APJ4WFC", "PO2ART", "LSV6XVZ", "SO2ART", "I4MPNBZD" in the last 72 hours. Lactic Acid: [...] nowOverweight (BMI 25-29.9) - Disposition: Admit to [facility]. - Given the signs and symptoms associated [...] care. - he is well-known at in [place], and they will accept transfer of the pt when a bed is available. [facility] 11-08-2024 Note Attestation signed by Paulino Larios [...] care. - he is well-known at in [place], and they will accept transfer of the pt when a bed is available. Internal Medicine: Med Team Initial History and Physical Kevan La : 1975(49 y.o.) Date: November 08, 2024 TEAM: B Attending: Dr. Larios Subjective: Chief Complaint: Wound Check HPI Kevan La is a 49 y.o. male with PMH chronic hidradenitis suppurativa that presented to [facility] on 11/08/[address] [facility]. Patient was seen at for severe at [...] follow-up with dermatology 11/12/2024. Patient arrived to [facility] ED from SNF for possible sepsis related to chronic hidradenitis affecting mostly his left hip and going down into his left thigh. At [facility] nurse noted that his wounds were draining [...] 1900 BP: 76/ (more content not included)... [facility] 11-08-2024 History and physical note Internal Medicine: Med Team Initial History and Physical Kevan La : 1975(49 y.o.) Date: November 08, 2024 TEAM: B Attending: Dr. Albainy Subjective: Chief Complaint: Wound Check HPI Kevan La is a 49 y.o. male with PMH chronic hidradenitis suppurativa that presented to [facility] on 11/08/[address] [facility]. Patient was seen at for severe at [...] follow-up with dermatology 11/12/2024. Patient arrived to [facility] ED from [facility] for possible sepsis related to chronic hidradenitis affecting mostly his left hip and going down into his left thigh. At [facility] nurse noted that his wounds were draining [...] 16.5* ABGs: No results for input(s): "PHART", "KLG2ANR", "PO2ART", "RWE0VLJ", "SO2ART", "Y7EAPRUS" in the last 72 hours. Lactic Acid: [...] nowOverweight (BMI 25-29.9) - Disposition: Admit to [facility]. - Given the signs and symptoms associated [...] care. - he is well-known at in [place], and they will accept transfer of the pt when a bed is available. documented in this encounter [facility] 11-08-2024 Emergency department Note Patient requested pain medication and dinner. This nurse messaged provider [facility] 11-08-2024 Emergency department Note Patient is aware of patients BP and MAP. [facility] 11-08-2024 Emergency department Note Liter of NS hung for systolic of 88. IV obtained with blood work and first set of cultures. Will notify doctor of BP. [facility] 11-08-2024 Physician Emergency department Note EMERGENCY DEPARTMENT [...] Resource Strain: Medium Risk (10/12/2024) Received from [facility] Overall Financial Resource Strain (CARDIA) Difficulty of Paying Living Expenses: Somewhat hard Food Insecurity: Food Insecurity Present (10/11/2024) Received from [facility] Hunger Vital Sign Worried About Running Out of Food in the Last Year: Sometimes true Ran Out of Food in the Last Year: Sometimes true Transportation Needs: No Transportation Needs (10/12/2024) Received from [facility] PRAPARE - Transportation Lack of Transportation (Medical): No Lack of Transportation (Non-Medical): No Intimate Partner Violence: Not At Risk (10/11/2024) Received from [facility] Humiliation, Afraid, Rape, and Kick questionnaire Fear of Current or Ex-Partner: No Emotionally Abused: No Physically Abused: No Sexually Abused: No Housing Stability: Low Risk (10/12/2024) Received from [facility] Housing Stability Vital Sign Unable to Pay for Housing in the Last Year: No Number of Times Moved in the Last Year: 1 Homeless in the Last Year: No Recent Concern: Housing Stability - High Risk (09/17/2024) Received from [facility] Housing Stability Vital Sign Unable to Pay [...] Procedure Abnormality Status --------- ------ Culture, Aerobic Bacteri...[[id number]] Anaerobic culture[[id number]] Please view results for these tests on the individual orders. CULTURE, AEROBIC BACTERIA WITH GRAM STAIN CULTURE ANAEROBIC CBC WITH AUTO DIFFERENTIAL COMPREHENSIVE METABOLIC PANEL LACTIC ACID WITH REFLEX COMPLETE URINALYSIS WITH REFLEX TO CULTURE Narrative: The following orders were created for panel order Urinalysis Complete with reflex to Culture. Procedure Abnormality Status --------- ------ Complete Urinalysis[[id number]] Please view results for these tests on [...] Medicine Provider Juvenal Fierro MD Resident 11/08/24 8257 Cosigned by Fer Kennedy MD at 11/08/2024 6:55 PM EST [facility] Phone: 11-08-2024 Physician Emergency department Note Emergency Department Encounter [facility] EMERGENCY DEPT Patient: Kevan La : 1975 [...] pressure and wound check. Patient coming from [facility] for possible sepsis. Patient has chronic refractory [...] for clarification.) Fer Kennedy MD Acute Care [facility] Fer Kennedy MD 11/08/24 3905 [facility] Phone: 10-23-2024 Nurse Note Transport forgot paper chart- all chart information, including script faxed to [facility]- fax #[phone] ATTENTION : NURSE MAGNUS This nurse called report to Magnus RN at [facility]-the facility of choice by patient. Patient leaving with PICC in place in [facility] dated 10/20/24. Script for pain medications [...] dsg twice daily. documented in this encounter [facility] Work Phone: 10-23-2024 Miscellaneous Notes Problem: Pain [...] rifampin, augmentin and doxycycline. He came to [facility] ED with severe HS and associated deep [...] Patient's blood culture (taken 10/10) resulted with Maryia dhavala on 10/16. Formal ID consult placed [...] rifampin, augmentin and doxycycline. 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 Additional Details: Line was inserted using Modified Seldinger's Technique. Placed by: Shreya Bailey RN-[facility] Associated Problem(s): Abscess Kevan La is a 49 y.o. male with refractory hidradenitis supprativa (HS) not responding to povorcitinib (RCT candidate), apremilast, isotretinoin, adalimumab, infliximab, moxifloxacin/metronidazole, minocyclin, clindamycin, rifampin, augmentin and doxycycline. He came to [facility] ED with severe HS and associated deep [...] blood culture (taken 10/10) resulted with Slackia exmohindera on 10/16. 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 Problem: Pain - Adult [...] rifampin, augmentin and doxycycline. He came to [facility] ED with severe HS and associated deep [...] blood culture (taken 10/10) resulted with Slackia exmohindera on 10/16. Formal ID consult placed for further recommendations. Updates 10/19: -Blood culture 10/10 with maryia exmohindera in addition to other prior culture [...] Nephropathy - Cr 1.69 on admission - [facility]CI NSAID use for HS, most recently was [...] rifampin, augmentin and doxycycline. He came to [facility] ED with severe HS and associated deep [...] recommendations. Updates 10/18: -Blood culture 10/10 with maryia dhavala in addition to other prior culture [...] Nephropathy - Cr 1.69 on admission - [facility]CI NSAID use for HS, most recently was [...] rifampin, augmentin and doxycycline. He came to [facility] ED with severe HS and associated deep [...] Updates 10/17: -Blood culture 10/10 with slackia exigua in [...] rifampin, augmentin and doxycycline. He came to [facility] ED with severe HS and associated deep [...] Cabrera MD PGY1 Acute Care Surgery Pager [phone] The patient's goals for the shift include [...] rifampin, augmentin and doxycycline. He came to [facility] ED with severe HS and associated deep [...] rifampin, augmentin and doxycycline. He came to [facility] ED with severe HS and associated deep [...] 1.69 on admission (1.44 on 09/13/2024) - FCI NSAID use for HS, most recently was [...] rifampin, augmentin and doxycycline. He came to [facility] ED with severe HS and associated deep [...] 1.69 on admission (1.48 on 09/12/2024) - FCI NSAID use for HS, most recently was [...] Thierno Chavis MD PGY-2 General Surgery ACS [id number] Rapid Response Nurse Note: RADAR alert: 6 Pager time: [phone] Arrival time: 1124 Event end time: 1156 Location: 2075 [] Triage by phone or secure messaging Rapid response initiated by: [] Rapid response RN [] Family [] Nursing Continuous Absorption Process Operator [] Physician [x] RADAR auto page [] Sepsis auto-page [] RN [] RT [] [facility]/PA [] Other: Primary reason for call: [] [...] Note Date: 10/10/2024 - 10/13/2024 OR Location: [facility] OR Name: Kevan La, : 1975, Age: 49 y.o., , Sex: male Diagnosis Pre-op Diagnosis * Hidradenitis suppurativa [L73.2] Post-op Diagnosis * Hidradenitis suppurativa [L73.2] Procedures INCISION AND DRAINAGE, THIGH 20090 - DC I&D DEEP ABSC BURSA/HEMATOMA THIGH/KNEE REGION Surgeons * Momo Dougherty - Primary Resident/Fellow/Other Floor Installation Mechanic: Surgeons and Role: * Thierno Chavis MD - Resident - Assisting Staff: Engraver Seals: Magda Barnes Person: Mack Anesthesia Staff: Anesthesiologist: Kristy Clarke MD Toll Collector: Chelle Singh MD Procedure Summary Anesthesia: General [...] Ladonna Chavis MD PGY-2 Gen Surg ACS [id number] Cosigned by Momo Dougherty MD at 10/13/2024 [...] rifampin, augmentin and doxycycline. He came to [facility] ED with severe HS and associated deep [...] rifampin, augmentin and doxycycline. He came to [facility] ED with severe HS and associated deep [...] course of Unasyn. documented in this encounter [facility] Work Phone: 10-22-2024 History of Present illness Narrative 10/22/24 1536 Discharge Planning Expected Discharge Disposition SNF ([facility]) What day is the transport expected? 10/23/24 What time is the transport expected? 1400 Transport confirmed via [facility] ([phone]), N2N # [phone], 100 cabrera. Medical team, pt's RN, and resource RN aware. Kevan La is a 49 y.o. male on day 11 of admission presenting with Gluteal abscess. Pt is medically ready. TCC confirmed with pt that he is agreeable to [facility] if able to accept as they are possibly the only accepting SNF at this time with a pending Medicaid #. 1538-Per HRS, pt's pending Medicaid # is [id number]. [facility] also sent [facility] pt's Medicaid application as requested. 1544-[facility] confirmed 7000 completed and able to accept pt. TCC will work on transport. Physical Therapy Physical Therapy Treatment Patient Name: Kevan La Department: [place] [id number] Room: Today's Date: 10/22/2024 Time Calculation Start Time: [...] on L buttocks while sitting Outcome Measures: [facility] Basic Mobility Turning from your back to [...] with transfers Start: 10/11/24 Cosigned by Doris Guzman, PT at 10/22/2024 12:59 PM EST Kevan [...] rifampin, augmentin and doxycycline. He came to [facility] ED with severe HS and associated deep [...] during interdisciplinary rounds. Team members present: MIGUEL NEILSEN Plan per Medical/Surgical team: Medically Ready Payer: Pending Medicaid Status: Inpatient Discharge disposition:Pending accepting facility [facility]? Potential Barriers: Pending facility acceptance ADOD: 10/23/24 [...] rifampin, augmentin and doxycycline. He came to [facility] ED with severe HS and associated deep [...] blood culture (taken 10/10) resulted with Slackia exmohindera on 10/16. Formal ID consult placed [...] Nephropathy - Cr 1.69 on admission - FCI NSAID use for HS, most recently was [...] 35 minutes in professional medical decision making, htqj-cs-vflp examination and counseling, care coordination, chart review, [...] rifampin, augmentin and doxycycline. He came to [facility] ED with severe HS and associated deep [...] 35 minutes in professional medical decision making, wpkr-ls-vxwk examination and counseling, care coordination, chart review, discussions with consultants, and care planning Transitional Recovery Agent Progress Note: Contacted pt to obtain his SNF FOC. Pt is interested in [facility] (able to accept) and [facility] (interested). [facility] will contact pt to complete a Medicaid questionnaire and awaiting [facility] liaison to review. Plan to follow up with SNFs on Monday. Also, plan to follow up with HRS to obtain a pending Medicaid number. human resources coordinator will continue to follow for discharge planning needs. Aida VELASQUEZ, RN- Transitional Recovery Agent (TCC) [phone] Vancomycin Dosing by Pharmacy- Cessation of Therapy [...] (Rehab/SNF/etc) Type of Post Acute Facility Services long-term Expected Discharge Disposition SNF Per [facility] SNF confirmed they are able to accept pt with pending Medicaid number, [facility] [place], [place], [facility] and [facility] SNF's are still reviewing. Update on acceptance requested from the reviewing SNF's, all SNF's were updated pt will discharge on IV Vanco every 12 hours + IV Unasyn every 6 hours with wound care BID. Pt was updated regarding the accepting SNF, and 4 reviewing SNF's, he stated he will look into these facilities and provide FOC tomorrow. Pt will need pending [place] Medicaid number and 7000 form prior to discharge. Care Transitions team will continue to follow for discharge planning needs. Lorenza Morales RN Transitional Recovery Agent (TCC) [phone] or [id number] Vancomycin Dosing by Pharmacy- FOLLOW UP Kevan [...] on 10/19/2024 Exposure target: AUC24 (range)400-600 mg/L.hr [id number]: 447 mg/L.hr AUC24,ss: 474 mg/L.hr Probability of [...] clinical response, and signs/symptoms of toxicity. DAVINA FLAHERTY PharmD Kevan La is a 49 y.o. [...] from last 72 hours Lab Units 10/18/24 0706 10/17/24 1206 WBC AUTO x10*3/uL 15.6* 16.7* HEMOGLOBIN g/dL 8.4* 8.5* HEMATOCRIT % 27.3* 25.1* PLATELETS AUTO x10*3/uL 605* 590* NEUTROS PCT AUTO % 71.4 75.1 LYMPHS PCT AUTO % 16.4 14.2 MONOS PCT AUTO % 8.3 7.8 EOS PCT AUTO % 2.2 1.6 Results from last 72 hours Lab Units 10/18/24 0706 10/17/24 1926 10/17/24 0811 SODIUM mmol/L 139 136 138 POTASSIUM [...] from last 72 hours Lab Units 10/18/24 0706 10/17/24 1926 10/17/24 0811 ALK PHOS U/L 70 -- 62 [...] evidence of osteomyelitis. Micro: 10/10: Blood Cx: Marytatianna Oliveiramichela in anaerobic bottle, Staph hominis in another [...] ID Fellow. For new consults, contact pager [phone]. EPIC chat preferred. Ivette Pina MD I [...] rifampin, augmentin and doxycycline. He came to [facility] ED with severe HS and associated deep [...] recommendations. Updates 10/19: -Blood culture 10/10 with maryia dhavala in addition to other prior culture [...] pairs and chains --> resulted 10/16 with maryia dhavala --> one tube with Staph hominis [...] 35 minutes in professional medical decision making, uuob-jx-bpcb examination and counseling, care coordination, chart review, [...] rifampin, augmentin and doxycycline. He came to [facility] ED with severe HS and associated deep [...] Nephropathy - Cr 1.69 on admission - FCI NSAID use for HS, most recently was [...] 40 minutes in professional medical decision making, eevh-nx-xfai examination and counseling, care coordination, chart review, [...] choice. Pt made choices as follows. [facility]st [facility] [place] 2nd [facility] 3rd [facility] and 4th [facility]. Referrals made via [facility]. 4370 This TCC followed up with pt that none of the facilities accepted the pt.Pt agreeable for blanket referral to be made to see who can accept pending medicaid number and then pt can choose from those facilities. [place] referral made. TCC to follow up with discharge planning. Usman Spann PRN, TCC [phone] [email or web address] Kevan La is a 49 y.o. [...] non tender, no organomegaly was appreciated. 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 No gross focal deficits appreciated. [...] evidence of osteomyelitis. Micro: 10/10: Blood Cx: Marta Méndez in anaerobic bottle, Staph hominis in another [...] ID Fellow. For new consults, contact pager [phone]. EPIC chat preferred. I saw and evaluated [...] discussed during interdisciplinary rounds. Team members present: MIGUEL, Plan per medical/surgical team: Continue IV Vanco and Zosyn-Awaiting final ID reccs for abx. Payer: no insurance-[facility] can accept for [place] Medicaid Status: inpatient Discharge disposition: ?SNF-If IV abx and wound needed Potential Barriers: no insurance ADOD: 10/18 7806-TCC spoke to pt about possible DC plans. Pt states he would be agreeable to go to a SNF that accepts a pending Medicaid # for wound care and if IV abx is needed. 5762-TCC requested a pending Medicaid # from [facility]-medical team updated. [facility] - PROGRESS NOTE Patient [...] Surg Acute Care Surgery Service Team Pager: [phone] CHIEF COMPLAINT / EVENTS LAST 24HRS / [...] on 10/17/2024 Exposure target: AUC24 (range)400-600 mg/L.hr PVE05-30: 443 mg/L.hr AUC24,ss: 447 mg/L.hr Probability of [...] response, and signs/symptoms of toxicity. Sudhakar Woo PharmИрина, BCPS Vancomycin Dosing by Pharmacy- FOLLOW UP [...] Blood culture from Peripheral Venipuncture Marta puentesa 10/10/24 Blood culture from Peripheral Venipuncture Staphylococcus [...] 12 hours. Exposure target: AUC24 (range)400-600 mg/L.hr MSL38-60: 443 mg/L.hr AUC24,ss: 448 mg/L.hr Probability of [...] rifampin, augmentin and doxycycline. He came to [facility] ED with severe HS and associated deep [...] Updates 10/17: -Blood culture 10/10 with slackia exigua in [...] 40 minutes in professional medical decision making, phfj-bk-dcrm examination and counseling, care coordination, chart review, [...] rifampin, augmentin and doxycycline. He came to [facility] ED with severe HS and associated deep [...] 40 minutes in professional medical decision making, tink-md-kjao examination and counseling, care coordination, chart review, discussions with consultants, and care planning [facility] - PROGRESS NOTE Patient [...] PGY1 Acute Care Surgery Service Team Pager: [phone] CHIEF COMPLAINT / EVENTS LAST 24HRS / [...] making as documented in the note. Terrence Richards, DO Kevan La is a 49 y.o. male on day 5 of admission presenting with Gluteal abscess. Per [facility], "patient has been screened from a previous date of service and accepted for possible [place] Medicaid. We are pending copies of his paystubs and will continue to follow up with him to obtain." [facility] states for TCC to notify them on the day of discharge and they will send a letter to Larry so pt can receive his medications. Medical team aware. Occupational Therapy Evaluation Patient Name: Kevan La Department: [place] [address] Room: Today's Date: 10/15/2024 Time Calculation Start [...] Rehab: hidradenitis supprativa Co-Treatment: PT Co-Treatment Reason: 2/2 high reports of pain and limited mobility upon admission to ensure pt safety throughout session with difficult transfers 2/2 location of I&D wound Prior to Session [...] Bathroom Equipment: None Prior Function: Level of [place]: Independent with ADLs and functional transfers, Independent with homemaking with ambulation Receives Help From: (neighbors currently caring for dog) ADL Assistance: Independent Homemaking Assistance: Independent Ambulatory Assistance: Independent 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 Daily Activity Putting on and taking off [...] 10:46 AM Connie Thomas OT Rehab Office: [phone] Physical Therapy Physical Therapy Evaluation Patient Name: Kevan La Department: [place] [address] Room: Today's Date: 10/15/2024 Time Calculation Start [...] as evidenced by functional mobility Outcome Measures: [facility] Basic Mobility Turning from your back to [...] Training, taught by Doris Guzman PT at 10/15/2024 10:08 AM. Learner: Patient Readiness: Acceptance Method: Explanation Response: Verbalizes Understanding Comment: PT POC, possible need for AD 10/15/24 at 10:09 AM - Doris Guzman PT [facility] - PROGRESS NOTE Patient [...] PGY1 Acute Care Surgery Service Team Pager: [phone] CHIEF COMPLAINT / EVENTS LAST 24HRS / [...] rifampin, augmentin and doxycycline. He came to [facility] ED with severe HS and associated deep [...] 40 minutes in professional medical decision making, gbib-wx-nces examination and counseling, care coordination, chart review, [...] rifampin, augmentin and doxycycline. He came to [facility] ED with severe HS and associated deep [...] 1.69 on admission (1.44 on 09/13/2024) - FCI NSAID use for HS, most recently was [...] 8:23 AM EST Associated attestation - Gilbert Sylvetser MD - 10/15/2024 8:23 AM EST I [...] regimen. This dosing regimen is predicted by [employer] to result in the following pharmacokinetic parameters: Regimen: 750 mg IV every 12 hours. Start time: 12:21 on 10/14/2024 Exposure target: AUC24 (range)400-600 mg/L.hr [id number]: 425 mg/L.hr AUC24,ss: 416 mg/L.hr Probability of [...] response, and signs/symptoms of toxicity. Alberto BarclayD [facility] - PROGRESS NOTE Patient [...] Maurice Chavis MD PGY-2 Gen Surg ACS [id number] CHIEF COMPLAINT / EVENTS LAST 24HRS / [...] CHLORIDE mmol/L 102 100 101 CO2 mmol/L BUN mg/dL 15 19 16 CREATININE mg/dL [...] Shifts: I/O last 3 completed shifts: In: 1979 (19.7 mL/kg) [P.O.:980; IV Piggyback:1000] Out: 3375 [...] rifampin, augmentin and doxycycline. He came to [facility] ED with severe HS and associated deep [...] will switch Zosyn to Meropenem -bld c/s 10/13-Stapcolton hominis #Analgesic Nephropathy - Cr 1.69 on admission (1.48 on 09/12/2024) - FCI NSAID use for HS, most recently was [...] 10/14/2024 8:09 AM EST Associated attestation - Gilbert Sylvester MD - 10/14/2024 8:09 AM EST I [...] were you homeless or living in a intermediate (including now)? N Transportation Needs In the past 12 months, has lack of transportation kept you from medical appointments or from getting medications? no In the past 12 months, has lack of transportation kept you from meetings, work, or from getting things needed for daily living? No Patient Choice Provider Choice list and [facility] website (https://medicare.gov/care-compar e#search) for post-acute Quality and Resource Measure Data were provided and reviewed with: Patient Intensity of Service Intensity of Service 0-30 min PCP: None-pt states he has a new PCP appt on 10/15 at 1:30pm with Sharron Flaherty at ([phone]) PHARMACY: [facility] [place]: denies EQUIPMENT USED [...] rifampin, augmentin and doxycycline. He came to [facility] ED with severe HS and associated deep [...] 1.69 on admission (1.48 on 09/12/2024) - [facility] NSAID use for HS, most recently was [...] on 10/12/2024 Exposure target: AUC24 (range)400-600 mg/L.hr JSO91-02: 465 mg/L.hr AUC24,ss: 514 mg/L.hr Probability of [...] clinical response, and signs/symptoms of toxicity. Arianna Mir, PharmD [facility] SURGERY - PROGRESS NOTE Patient [...] MN and we will consent in AM. [facility] [id number] CHIEF COMPLAINT / EVENTS LAST 24HRS / [...] Large area of phlegmon/abscess within the gluteus rnadell as detailed above. I discussed that the [...] rifampin, augmentin and doxycycline. He came to [facility] ED with severe HS and associated deep [...] for Hidradenitis suppurativa. Pharmacy reviewed the patient's uebzg-ph-pkcwldavr medications and allergies for accuracy. Medications ADDED: Ibuprofen Ferrous sulfate Vitamin D3 Medications CHANGED: none Medications REMOVED: none The list below reflects the updated [employer] list. Prior to Admission Medications Prescriptions Last Dose Informant Study STOP-HS1 [id number] povorcitinib 45mg or 75mg tablet 10/10/2024 Morning [...] clarification and justification. Allergies Reviewed by Connie Choi PharmD on 10/11/2024 No Known Allergies Patient accepts M2B at discharge. Sources: [facility] Pharmacy dispense history Patient interview Moderate historian Chart Review ID note from 09/24 Dermatology note from 09/30 Care Everywhere Additional Comments: Pt states that many pain medications are ineffective would like something prior to being discharge Connie Choi PharmD Transitions of Care Pharmacist 10/11/24 Secure Chat preferred If no response call [phone] or [employer] "Med Rec" Kevan La is a 49 [...] planning. MIGUEL Sheppard documented in this encounter [facility] Work Phone: 10-21-2024 Hospital Discharge instructions Delilah [...] us take part in your care! - [facility] documented in this encounter [facility] Work Phone: 10-18-2024 Consult note Associated Order [...] on 10/18/2024 Exposure target: AUC24 (range)400-600 mg/L.hr GYU73-90: 413 mg/L.hr AUC24,ss: 458 mg/L.hr Probability of [...] small molecule checkpoint inhibitor), presented on 09/2021 [facility] with a complaint of fatigue and weakness [...] and apremilast. He was being treated by [facility]. Pt reports that he has been [...] pain (1 - 3). 10/10/2024 Study STOP-HS1 [id number] povorcitinib 45mg or 75mg tablet Take 1 [...] 30 packet 0 Not Taking Study STOP-HS1 [id number] povorcitinib 45mg or 75mg tablet Take 1 tablet by mouth once daily. Preferably in the morning, with a full glass of water. 31 tablet 0 Study STOP-HS1 [id number] povorcitinib 45mg or 75mg tablet Take 1 tablet by mouth once daily. Preferably in the morning, with a full glass of water. 31 tablet 0 Study STOP-HS1 [id number] povorcitinib 45mg or 75mg tablet Take 1 tablet by mouth once daily. Preferably in the morning, with a full glass of water. 62 tablet 0 Study STOP-HS1 [id number] povorcitinib 45mg or 75mg tablet Take 1 tablet by mouth once daily. Preferably in the morning, with a full glass of water. 62 tablet 0 Study STOP-HS1 [id number] povorcitinib 45mg or 75mg tablet Take 1 tablet by mouth once daily. Preferably in the morning, with a full glass of water. 62 tablet 0 Study STOP-HS1 [id number] povorcitinib 45mg or 75mg tablet Take 1 tablet by mouth once daily. Preferably in the morning, with a full glass of water. 62 tablet 0 Study STOP-HS1 [id number] povorcitinib 45mg, 75mg or placebo tablet Take 1 tablet by mouth once daily. Preferably in the morning, with a full glass of water. 31 tablet 0 Study STOP-HS1 [id number] povorcitinib 45mg, 75mg or placebo tablet Take 1 tablet by mouth once daily. Preferably in the morning, with a full glass of water. 31 tablet 0 Study STOP-HS1 [id number] povorcitinib 45mg, 75mg or placebo tablet Take 1 tablet by mouth once daily. Preferably in the morning, with a full glass of water. 31 tablet 0 Study STOP-HS1 [id number] povorcitinib 45mg, 75mg or placebo tablet Take [...] non tender, no organomegaly was appreciated. 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 No gross focal deficits appreciated. [...] Final No results found for: "HIV1X2", "HIVCONF", "JJGCMV9YW" No results found for: "HEPCABINIT", "HEPCAB", HCVPCRQUANT Microbiology Susceptibility data from last 90 days. Collected Specimen Info Organism 10/13/24 Swab from ABSCESS Mixed Anaerobic Bacteria Mixed Gram-Positive and Gram-Negative Bacteria 10/11/24 Tissue/Biopsy from Other (specify in comments) Mixed Anaerobic Bacteria Mixed Gram-Positive and Gram-Negative Bacteria 10/10/24 Blood culture from Peripheral Venipuncture Slackia roxanneigua 10/10/24 Blood culture from Peripheral Venipuncture Staphylococcus [...] ID Fellow. For new consults, contact pager [phone]. GeoTrac preferred. I spent 45 minutes in the [...] note. Daylin Duran MD (please reach through [employer]) Infectious Diseases, Senior Attending Physician Nutrition Assessment [...] morning: potatoes, scrambled eggs with cheese, an Belizean muffin with butter and jelly and orange [...] from last 7 days Lab Units 10/14/24 0810/13/24194210/13/24114710/12/24823 WBC AUTO x10*3/uL 15.0* 24.0* 30.1* 14.6* RBC AUTO x10*6/uL 2.94* 2.92* 3.76* 3.48* HEMOGLOBIN g/dL 8.1* 8.3* 10.5* 9.5* HEMATOCRIT % 26.6* 25.6* 34.1* 30.8* MCV fL 91 88 91 89 PLATELETS AUTO x10*3/uL 561* 579* 755* 633* , BMP Trend: Results from last 7 days Lab Units 10/14/24 0810/13/24 11410/12/24 0824 10/11/24 0546 GLUCOSE mg/dL 163* 144* 100* 79 CALCIUM mg/dL 9.0 10.4 10.0 9.4 SODIUM mmol/L 137 139 136 138 POTASSIUM mmol/L 3.9 4.5 4.0 4.1 CO2 mmol/L 26 26 25 24 CHLORIDE mmol/L 102 100 101 106 BUN mg/dL 15 19 16 20 CREATININE mg/dL 1.44* 1.84* 1.61* 1.60* , A1C: Lab Results Component Value Date HGBA1C 6.0 (H) 09/14/2024 , BG POCT trend: , Liver Function Trend: Results from last 7 days Lab Units 10/14/24 0810/13/24 11410/12/24 0810/10/24 1617 ALK PHOS U/L 60 76 66 79 AST U/L 6* 10 11 9 ALT U/L 9* 9* 8* 14 BILIRUBIN TOTAL mg/dL 0.2 0.4 0.3 0.2 , Renal Lab Trend: Results from last 7 days Lab Units 10/14/24 0830 10/13/24 1148 10/12/24 0824 10/11/24 0546 POTASSIUM mmol/L 3.9 4.5 4.0 4.1 PHOSPHORUS mg/dL -- -- -- 3.8 SODIUM mmol/L 137 139 136 138 MAGNESIUM mg/dL -- -- -- 2.19 EGFR mL/min/1.73m*2 59* 44* 51* 52* BUN mg/dL 15 19 16 20 CREATININE mg/dL 1.44* 1.84* 1.61* 1.60* , Vit D: No results found for: "VITD25" , Vit B12: No results found for: "DUWGRFAM86" Nutrition Specific Medications: Scheduled medications acetaminophen, 975 [...] Dietary Orders (From admission, onward) Start Ordered 10/13/24 110 Adult diet Regular Diet effective now Question: [...] rifampin, augmentin and doxycycline. He came to [facility] ED with severe HS and associated deep seated tissue infection. Wound Assessment: Wound 09/13/24 Other (comment) Buttock Left (Active) Wound Image 10/11/24 1444 Site Assessment Yellow;Kirwin;Painful;Denuded;Indur ation;Granulation;Fibrinous;Swell ing 10/11/24 1444 Wound Length (cm) 3 cm 10/11/24 1444 Wound Width (cm) 3.5 cm 10/11/24 1444 Wound Surface Area (cm^2) 10.5 cm^2 10/11/24 1444 Wound Depth (cm) 1 cm 10/11/24 144 Wound Volume (cm^3) 10.5 cm^3 10/11/24 1444 Wound Healing % -110 10/11/24 144 State of Healing Non-healing;Slough;Undermining 10/11/24 144 Undermining Clock Position of Wound 6 10/11/24 144 Margins Not attached;Poorly defined 10/11/24 144 Treatments Site care;Packings 10/11/241443 Drainage Description Purulent;Bourne;Yellow 10/11/24 144 Drainage Amount Moderate 10/11/24 144 Dressing Hydrofiber;Packed;ABD;Silicone border dressing;Barrier film 10/11/241443 Dressing Changed New 10/11/241443 Dressing Status Dry;Clean 10/11/241443 Wound 10/10/24 Leg Left;Upper (Active) Assessment/Intervention: Pt [...] consultation: HS History of Present Illness Kevan La is [...] for HS. Patient was recently admitted to [facility] 09/13-09/17 for the same complaint. He presented [...] and apremilast. He was being treated by [facility]. Pt reports that he has been [...] Yellow, Dark-Yellow Appearance, Urine Clear Clear Specific [place], Urine 1.037 (N) 1.005 - 1.035 pH, [...] PGY2, Dermatology Epic chat (preferred) Team pager [phone] I saw and evaluated the patient. I [...] on 10/10/2024 Exposure target: AUC24 (range)400-600 mg/L.hr UIN50-42: 316 mg/L.hr AUC24,ss: 465 mg/L.hr Follow-up level tomorrow with AM labs. Will continue to monitor renal function daily while on vancomycin and order serum creatinine at least every 48 hours if not already ordered. Follow for continued vancomycin needs, clinical response, and signs/symptoms of toxicity. Alberto KolbD Associated Order(s): IP CONSULT TO ACUTE CARE SURGERY [facility] SURGERY - HISTORY AND PHYSICAL [...] Dr. Maurice Magana MD PGY-4 General Surgery [facility] [address] CHIEF COMPLAINT/REASON FOR CONSULT: 49M with PMH [...] hours if needed for smoking cessation. 09/17/24 iLa Prado MD ondansetron ODT (Zofran-ODT) 4 mg disintegrating tablet Dissolve 1 tablet (4 mg) in the mouth every 8 hours if needed for nausea. 09/17/24 Lia Prado MD polyethylene glycol (Glycolax, Miralax) 17 gram packet Take 17 g by mouth once daily. 09/18/24 10/18/24 Lia Prado MD Study STOP-HS1 [id number] povorcitinib 45mg or 75mg tablet Take 1 tablet by mouth once daily. Preferably in the morning, with a full glass of water. 02/29/24 Kimber Last MD Study STOP-HS1 [id number] povorcitinib 45mg or 75mg tablet Take 1 tablet by mouth once daily. Preferably in the morning, with a full glass of water. 04/04/24 Kimber Last MD Study STOP-HS1 [id number] povorcitinib 45mg or 75mg tablet Take 1 tablet by mouth once daily. Preferably in the morning, with a full glass of water. 04/12/24 Kimber Last MD Study STOP-HS1 [id number] povorcitinib 45mg or 75mg tablet Take 1 tablet by mouth once daily. Preferably in the morning, with a full glass of water. 05/27/24 Marlon Christiansen MD Study STOP-HS1 [id number] povorcitinib 45mg or 75mg tablet Take 1 tablet by mouth once daily. Preferably in the morning, with a full glass of water. 07/08/24 Marlon Christiansen MD Study STOP-HS1 [id number] povorcitinib 45mg or 75mg tablet Take 1 tablet by mouth once daily. Preferably in the morning, with a full glass of water. 08/20/24 Marlon Christiansen MD Study STOP-HS1 [id number] povorcitinib 45mg or 75mg tablet Take 1 tablet by mouth once daily. Preferably in the morning, with a full glass of water. 09/30/24 Marlon Christiansen MD Study STOP-HS1 [id number] povorcitinib 45mg, 75mg or placebo tablet Take 1 tablet by mouth once daily. Preferably in the morning, with a full glass of water. 12/11/23 Kimber Last MD Study STOP-HS1 [id number] povorcitinib 45mg, 75mg or placebo tablet Take 1 tablet by mouth once daily. Preferably in the morning, with a full glass of water. 12/29/23 Kimber Last MD Study STOP-HS1 [id number] povorcitinib 45mg, 75mg or placebo tablet Take 1 tablet by mouth once daily. Preferably in the morning, with a full glass of water. 01/16/24 Kimber Last MD Study STOP-HSRedd [id number] povorcitinib 45mg, 75mg or placebo tablet Take [...] Terrence Richards DO documented in this encounter [facility] Work Phone: 10-13-2024 History and physical note H&P reviewed. The patient was examined and there are no changes to the H&P. Pt reassessed: plan for I&D today Cosigned by Momo Dougherty MD at 10/13/2024 7:22 PM EST Source Note - Diane Magana MD - 10/10/2024 11:27 PM EST [facility] SURGERY - HISTORY AND PHYSICAL [...] Dr. Maurice Magana MD PGY-4 General Surgery [facility] [address] CHIEF COMPLAINT/REASON FOR CONSULT: 49M with PMH [...] 09/18/24 10/18/24 Lia Prado MD Study STOP-HS1 [id number] povorcitinib 45mg or 75mg tablet Take 1 tablet by mouth once daily. Preferably in the morning, with a full glass of water. 02/29/24 Kimber Last MD Study STOP-HS1 [id number] povorcitinib 45mg or 75mg tablet Take 1 tablet by mouth once daily. Preferably in the morning, with a full glass of water. 04/04/24 Kimber Last MD Study STOP-HS1 [id number] povorcitinib 45mg or 75mg tablet Take 1 tablet by mouth once daily. Preferably in the morning, with a full glass of water. 04/12/24 Kimber Last MD Study STOP-HS1 [id number] povorcitinib 45mg or 75mg tablet Take 1 tablet by mouth once daily. Preferably in the morning, with a full glass of water. 05/27/24 Marlon Christiansen MD Study STOP-HS1 [id number] povorcitinib 45mg or 75mg tablet Take 1 tablet by mouth once daily. Preferably in the morning, with a full glass of water. 07/08/24 Marlon Christiansen MD Study STOP-HS1 [id number] povorcitinib 45mg or 75mg tablet Take 1 tablet by mouth once daily. Preferably in the morning, with a full glass of water. 08/20/24 Marlon Christiansen MD Study STOP-HS1 [id number] povorcitinib 45mg or 75mg tablet Take 1 tablet by mouth once daily. Preferably in the morning, with a full glass of water. 09/30/24 Marlon Christiansen MD Study STOP-HS1 [id number] povorcitinib 45mg, 75mg or placebo tablet Take 1 tablet by mouth once daily. Preferably in the morning, with a full glass of water. 12/11/23 Kimber Last MD Study STOP-HS1 [id number] povorcitinib 45mg, 75mg or placebo tablet Take 1 tablet by mouth once daily. Preferably in the morning, with a full glass of water. 12/29/23 Kimber Last MD Study STOP-HS1 [id number] povorcitinib 45mg, 75mg or placebo tablet Take 1 tablet by mouth once daily. Preferably in the morning, with a full glass of water. 01/16/24 Kimber Last MD Study STOP-HS1 [id number] povorcitinib 45mg, 75mg or placebo tablet Take [...] small molecule JAK1 inhibitor) who presents to [facility] ED with fatigue, weakness, and worsening of L gluteal wound. Patient was recently admitted to [facility] 09/13-09/17 for the same complaint. He presented [...] 30 minutes after. 09/20/24 10/20/24 Ronna Carpenter [employer]ANT[employer] UNLOADER nicotine polacrilex (Nicorette) 2 mg gum Chew [...] 09/18/24 10/18/24 Lia Prado MD Study STOP-HS1 [id number] povorcitinib 45mg or 75mg tablet Take 1 tablet by mouth once daily. Preferably in the morning, with a full glass of water. 02/29/24 Kimber Last MD Study STOP-HS1 [id number] povorcitinib 45mg or 75mg tablet Take 1 tablet by mouth once daily. Preferably in the morning, with a full glass of water. 04/04/24 Kimber Last MD Study STOP-HS1 [id number] povorcitinib 45mg or 75mg tablet Take 1 tablet by mouth once daily. Preferably in the morning, with a full glass of water. 04/12/24 Kimber Last MD Study STOP-HS1 [id number] povorcitinib 45mg or 75mg tablet Take 1 tablet by mouth once daily. Preferably in the morning, with a full glass of water. 05/27/24 Marlon Christiansen MD Study STOP-HS1 [id number] povorcitinib 45mg or 75mg tablet Take 1 tablet by mouth once daily. Preferably in the morning, with a full glass of water. 07/08/24 Marlon Christiansen MD Study STOP-HS1 [id number] povorcitinib 45mg or 75mg tablet Take 1 tablet by mouth once daily. Preferably in the morning, with a full glass of water. 08/20/24 Marlon Christiansen MD Study STOP-HS1 [id number] povorcitinib 45mg or 75mg tablet Take 1 tablet by mouth once daily. Preferably in the morning, with a full glass of water. 09/30/24 Marlon Christiansen MD Study STOP-HS1 [id number] povorcitinib 45mg, 75mg or placebo tablet Take 1 tablet by mouth once daily. Preferably in the morning, with a full glass of water. 12/11/23 Kimber Last MD Study STOP-HS1 [id number] povorcitinib 45mg, 75mg or placebo tablet Take 1 tablet by mouth once daily. Preferably in the morning, with a full glass of water. 12/29/23 Kimber Last MD Study STOP-HS1 [id number] povorcitinib 45mg, 75mg or placebo tablet Take 1 tablet by mouth once daily. Preferably in the morning, with a full glass of water. 01/16/24 Kimber Last MD Study STOP-HS1 [id number] povorcitinib 45mg, 75mg or placebo tablet Take [...] Signs/Symptoms:Left gluteal abscess COMPARISON: None. ACCESSION NUMBER(S): [id number] ORDERING CLINICIAN: MACK GRADY TECHNIQUE: Axial CT [...] as stated. This study was interpreted at [place], [place] Signed by: Beronica Valentin 10/10/2024 11:03 PM Dictation workstation: [id number] XR chest 1 view Result Date: 10/10/2024 Interpreted By: Perry Baires, STUDY: XR CHEST 1 VIEW INDICATION: Signs/Symptoms:cough. COMPARISON: September 13, 2024 ACCESSION NUMBER(S): [id number] ORDERING CLINICIAN: KISHORE GUTIERREZ FINDINGS: Previous band [...] Perry Baires 10/10/2024 5:20 PM Dictation workstation: [id number] Assessment and Plan: Kevan La is a [...] in the note. documented in this encounter [facility] Work Phone: 10-10-2024 Emergency department Note Images [...] has noted significant pain of the left [place] where his previous hidradenitis suppurativa was. He [...] Perry Baires 10/10/2024 5:20 PM Dictation workstation: [id number] MDM: Patient is a 49-year-old male with [...] ED Course: ED Course as of 10/12/24 1419 Key Oct 10, 20242011 XR chest 1 view IMPRESSION: Previous band of right basilar airspace disease has nearly completely resolved with only a tiny amount of residual. No new consolidation or edema. [] 2014 Comprehensive metabolic panel(!) Metabolic panel for renal [...] condition. Mack Grady MD Emergency Medicine PGY-3 [facility] Comment: Please note this report has been [...] male with hidradenitis suppurativa, most treatment in [facility] where he used to live, has lived in [facility] for past 2 years, presenting with persistent [...] Color, Urine Light-Yellow Appearance, Urine Clear Specific [place], Urine 1.037 (*) pH, Urine 7.0 Protein, [...] Abnormality Status --------- ------ Urinalysis with Reflex C...[[id number]] Abnormal Final result Extra Urine Rhodes Tube[[id number]] Final result Please view results for these [...] as stated. This study was interpreted at [place], [place] Signed by: Beronica Valentin 10/10/2024 11:03 PM Dictation workstation: [id number] XR chest 1 view Final Result Previous band of right basilar airspace disease has nearly completely resolved with only a tiny amount of residual. No new consolidation or edema. Signed by: Perry Baires 10/10/2024 5:20 PM Dictation workstation: [id number] Consult to Interventional Radiology (Results Pending) Medical [...] with: ACS MD Kishore Hill MD 10/12/24 5755 Cosigned by Kishore Gutierrez MD at 10/12/2024 [...] be infected again. documented in this encounter [facility] Work Phone: 09-30-2024 History of Present illness Narrative Patient seen for Week 42 of STOP HS-301 trial by Marlon Christiansen MD Noted that patient was admitted to the hospital since previous visit. Con meds and additional details of the serious adverse event placed in physical notes. Please see physical copy of notes located in subject binder for additional information. documented in this encounter [facility] Work Phone: 09-24-2024 History of Present illness [...] of the labs documented in this encounter [facility] Work Phone: 09-17-2024 Nurse Note Discharge Note: VN went over AVS with Pt. Pt agreed and understood instructions. Pt is aware of follow up appts and blood work. Floor nurse removed IV and intact. Pt has all belongings at the bedside. Pt is awaiting Meds to Beds medication before discharge. [facility] 09-17-2024 Nurse Note Discharge Note: VN went [...] dressing is given. Pt was transferred from [facility] in [place] for this admission. Pt stated his car is at [facility] and he has no means to get there. Pt does not have insurance to set up transport. Pt doesn't have any means of transportation to get to his car at [facility], so the floor is providing LYFT pickup. Pt meds to beds is delivered. Pt is waiting for transport to leave the floor. documented in this encounter [facility] Work Phone: 09-17-2024 Nurse Note Pt is ready for discharge. Discharge paper is given, discharge instruction is given. All questions are answered at this time. Pt PIV is removed, wound dressing changed and education on how to clean and change wound dressing is given. Pt was transferred from [facility] in [place] for this admission. Pt stated his car is at [facility] and he has no means to get there. Pt does not have insurance to set up transport. Pt doesn't have any means of transportation to get to his car at [facility], so the floor is providing LYFT pickup. Pt meds to beds is delivered. Pt is waiting for transport to leave the floor. [facility] 09-17-2024 History of Present illness Narrative MOLD CLAMPER met with patient at bedside to address questions. Patient expressed interest on if he would be approved for disability. MOLD CLAMPER encouraged patient to call or go online to initiate the application process. Patient had disability resources at bedside. MOLD CLAMPER notified patient that the resources explains how and where to submit application and explains what we be needed and what to expect throughout the process. Patient verbalized understanding and thanked SW. PT recommends no needs. MOLD CLAMPER will sign off. SOPHIA Ardon 09/17/24 1213 [...] were you homeless or living in a intermediate (including now)? N Transportation Needs In the past 12 months, has lack of transportation kept you from medical appointments or from getting medications? no In the past 12 months, has lack of transportation kept you from meetings, work, or from getting things needed for daily living? No TCC ASSESSMENT: Met with pt and introduced myself as child adolescent care and member of the Care Transitions team for discharge planning. Pt stated he lives at home alone. He is independent with ADL's/iADL's, walks without use of an assistive device, and drives. Pt stated all of [place] and his fiance from [place] in 10/2023 so he has no family/friend support at home. Pt stated he lost his job back in 06/2024 which resulted with termination of his [facility] medical insurance policy. Pt denies any falls. Pt stated he feels safe at home. Pt's address, phone number, and emergency contact information was verified. SW was consulted on 09/16 for financial concerns (assistance with disability, lack of insurance). Home care: none. DME: Pt stated the previous home chef & owner was "convalescent" so bathroom is equipped with grab bars on the shower and wall. international trade manager: none. PCP: Pt does not have a PCP and hasn't been seen by one in about 3-4 years. Transport to [facility] center: Pt drives himself. Pharmacy: [facility]. Pt stated she only prescriptions he takes at home are STOP-HS 301 which is part of clinical free trial from Dermatology. Discharge Planning: Pt presenting from [facility] for new wound infection 2/2 hidradenitis suppurativa. Per medical team plan for discharge home today on oral Augmentin and PCP/Dermatology follow up appointments. Per HRS they accepted pt for [place] Medicaid and will fax auth letter to [...] additional questions or concerns regarding discharge planning. human resources coordinator will continue to follow for discharge planning needs. Lorenza Morales RN Transitional Recovery Agent (TCC) [phone] or [id number] Kevan La is a 49 y.o. male [...] inhibitor) presenting with new wound infection from [facility] ED.Being treated currently with Vancomycin, Zosyn, and [...] (09/24/24). Remainder as above. Mica Ly MD [facility] Hospitalist Physical Therapy Physical Therapy Evaluation Patient Name: Kevan La Department: [place] [address] Room: [address] [place] [address] Today's Date: 09/16/2024 Time Calculation Start Time: [...] Prior Function Per Pt/Caregiver Report Level of Bacon: Independent with ADLs and functional transfers ADL [...] Antalgic Comments/Distance (ft) 1: 100ft Outcome Measures: [facility] Basic Mobility Turning from your back to [...] Verbalizes Understanding Education Comments No comments found. TCC reports patient is not insured and expressed interest in disability. HRS was notified and HRS confirmed patient is on their list to see today. MOLD CLAMPER attempted to provide patient with disability resources [...] INDICATION: Signs/Symptoms:New fever. COMPARISON: None. ACCESSION NUMBER(S): [id number] ORDERING CLINICIAN: BALDOMERO POWELL FINDINGS: 2 AP [...] Miah Alves 09/14/2024 8:38 AM Dictation workstation: [id number] Physical Exam Constitutional: Appearance: Normal appearance. HENT: [...] inhibitor) presenting with new wound infection from [facility] ED.Being treated currently with Vancomycin, Zosyn, and [...] INDICATION: Signs/Symptoms:New fever. COMPARISON: None. ACCESSION NUMBER(S): [id number] ORDERING CLINICIAN: BALDOMERO POWELL FINDINGS: 2 AP [...] Miah Alves 09/14/2024 8:38 AM Dictation workstation: [id number] Physical Exam PHYSICAL EXAM: General: awake, alert, [...] INDICATION: Signs/Symptoms:New fever. COMPARISON: None. ACCESSION NUMBER(S): [id number] ORDERING CLINICIAN: BALDOMERO POWELL FINDINGS: 2 AP [...] Miah Alves 09/14/2024 8:38 AM Dictation workstation: [id number] Assessment/Plan Kevan La is a 49 y.o. male presenting with PMH of severe hidradenitis supprativa (on STOP HS-301 trial (povorcitinib), small molecule JAK1 inhibitor) presenting with new wound infection from [facility] ED. 09/15/24 Update - updated pain regimen: [...] INDICATION: Signs/Symptoms:New fever. COMPARISON: None. ACCESSION NUMBER(S): [id number] ORDERING CLINICIAN: BALDOMERO POWELL FINDINGS: 2 AP [...] Miah Alves 09/14/2024 8:38 AM Dictation workstation: [id number] Physical Exam PHYSICAL EXAM: General: awake, alert, [...] Yellow, Dark-Yellow Appearance, Urine Clear Clear Specific [place], Urine 1.014 1.005 - 1.035 pH, Urine [...] INDICATION: Signs/Symptoms:New fever. COMPARISON: None. ACCESSION NUMBER(S): [id number] ORDERING CLINICIAN: BALDOMERO POWELL FINDINGS: 2 AP [...] Miah Alves 09/14/2024 8:38 AM Dictation workstation: [id number] CT abdomen pelvis w IV contrast Result Date: 09/12/2024 [facility] 1975 [id number] Exam Date/Time: 09/12/2024 21:13 Procedure: CT ABDOMEN [...] 09/12/2024 Patient Name: KEVAN LA : 1975 [id number] Exam Date/Time: 09/12/2024 20:17 Procedure: XR CHEST [...] inhibitor) presenting with new wound infection from [facility] ED. #hidradenitis supprativa ::purulent drainage ::Leukocytosis (13.1) [...] clinical response, and signs/symptoms of toxicity. Karissa Venegas, PharmD documented in this encounter [facility] Work Phone: 09-17-2024 Hospital Discharge instructions Lia [...] Your Care team documented in this encounter [facility] Work Phone: 09-16-2024 Miscellaneous Notes Problem: Pain [...] complained of pain and was medicated per nov order and before left buttock dressing change. [...] reach, safety maintained. Zuleyma Sanchez RN Kevan La is a 49 y.o. male presenting with PMH of severe hidradenitis supprativa (disease on left buttock and gluteal fold) on STOP HS-301 trial (povorcitinib, small molecule JAK1 inhibitor) presenting with new wound infection from [facility] ED. He has a long-standing history of [...] last Monday, morning, and the day after [place]. Drainage from his buttock has been progressively [...] the trial drug. 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 He used to live in [place]. Denies any sick contacts. He also reports worsening left leg weakness since May (he used to walk with a limp, now has to shuffle). He has both a dry cough that sometimes culminates in post-tussive emesis. On 09/12, he came in with a draining left thigh wound, dry cough and shortness of breath to the [facility] ED. He had some post-tussive emesis. He came in with a fever to 100.4 , tachycardia to 102. He was started on Vanc/Zosyn, got 2 L of NS, and got toradol and morphine for pain. No real culture data history for infections except for rare gram positive cocci in 2016. On 09/13, on arrival at [facility], denies any pain, but has an intermittent [...] falls during shift documented in this encounter [facility] Work Phone: 09-16-2024 Plan of care note [...] complained of pain and was medicated per [facility] order and before left buttock dressing change. Patient tolerated dressing change with no issues. IV antibiotics administered. PT evaluated pt. Patient to be discharged 09/17/24. VSS, call light within reach, safety maintained. Zuleyma Sanchez RN [facility] 09-16-2024 Consult note Associated Order (s): IP [...] last 7 days Lab Units 09/16/24 0848 09/15/24182309/15/24 0737 09/14/24 0650 GLUCOSE mg/dL 91 122* [...] Estimated Needs: Total Energy Estimated Needs (kCal): (7048-5575 kcal) Method for Estimating Needs: MSJ 2017 [...] Wound healing Time Spent (min): 40 minutes [facility] 09-16-2024 Consult note Associated Order (s): IP [...] Estimated Needs: Total Energy Estimated Needs (kCal): (8913-5465 kcal) Method for Estimating Needs: MSJ 2017 [...] care 09/14/24 1211 Drainage Description Bourne;Purulent 09/14/24 1211 Drainage Amount Large 09/14/24 1211 Dressing Hydrofiber;Packed;ABD 09/14/24 1211 Dressing Changed New 09/14/24 121 Dressing Status Dry;Clean 09/14/24 1211 Wound Team [...] left buttock wound with AMD packing strip (FILM PROCESS OPERATOR #[id number] or [id number]) Cover the surrounding abscess wounds with 2 sheets of Aquacel Ag (FILM PROCESS OPERATOR#[id number]) Cover the wounds with multiple ABD pads Xiomara Palmer RN CW 09/14/2024 1:14 PM Associated Order(s): IP CONSULT TO ACUTE CARE SURGERY [facility] ACUTE CARE SURGERY - CONSULT Patient Name: [...] any questions Seen with Dr. Dequan Petty [facility] [address] CHIEF COMPLAINT/REASON FOR CONSULT: Patient has an [...] for evaluation and then was transferred to [facility] for more definitive management. Since admission here [...] End Date Taking? Authorizing Provider Study STOP-HS1 [id number] povorcitinib 45mg or 75mg tablet Take 1 tablet by mouth once daily. Preferably in the morning, with a full glass of water. 02/29/24 Kimber Last MD Study STOP-HS1 [id number] povorcitinib 45mg or 75mg tablet Take 1 tablet by mouth once daily. Preferably in the morning, with a full glass of water. 04/04/24 Kimber Last MD Study STOP-HS1 [id number] povorcitinib 45mg or 75mg tablet Take 1 tablet by mouth once daily. Preferably in the morning, with a full glass of water. 04/12/24 Kimber Last MD Study STOP-HSRedd [id number] povorcitinib 45mg or 75mg tablet Take 1 tablet by mouth once daily. Preferably in the morning, with a full glass of water. 05/27/24 Marlon Christiansen MD Study STOP-HS1 [id number] povorcitinib 45mg or 75mg tablet Take 1 tablet by mouth once daily. Preferably in the morning, with a full glass of water. 07/08/24 Marlon Christiansen MD Study STOP-HS1 [id number] povorcitinib 45mg or 75mg tablet Take 1 tablet by mouth once daily. Preferably in the morning, with a full glass of water. 08/20/24 Marlon Christiansen MD Study STOP-HS1 [id number] povorcitinib 45mg, 75mg or placebo tablet Take 1 tablet by mouth once daily. Preferably in the morning, with a full glass of water. 12/11/23 Kimber Last MD Study STOP-HSRedd [id number] povorcitinib 45mg, 75mg or placebo tablet Take 1 tablet by mouth once daily. Preferably in the morning, with a full glass of water. 12/29/23 Kimber Last MD Study STOP-HSRedd [id number] povorcitinib 45mg, 75mg or placebo tablet Take 1 tablet by mouth once daily. Preferably in the morning, with a full glass of water. 01/16/24 Kimber Last MD Study STOP-HSRedd [id number] povorcitinib 45mg, 75mg or placebo tablet Take [...] and apremilast. He was being treated by [facility] D[facility]. Pt reports that he has been on multiple therapies and was not able to list all the medications he has previously tried. He did recognize the names of the above medications. Flexo Operator is unable to access paper charts [...] at the time when talking to the poem writer. Notes increased fatigue. Denies any fevers, [...] back on smoking. 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 Hospital Course - 09/12 he came in with a draining left thigh wound, dry cough, and shortness of breath to [facility] ED - Vitals: T 100.4, HR 102 - Labs: WBC 17.8, Hgb 8.9, platelets 568, CMP Cr 1.48, lactic acid 2 - CT abdomen/pelvis: subcutaneous edema and subcutaneous emphysema of the left buttock extending along the posterior thigh. Extension of fluid into the posterior deep intramuscular fascia of the posterior left thigh. - Vanc/zosyn started - toradol/morphine for pain - 09/13 transferred to [facility] - Labs: WBC 13.4, Hgb [...] Yellow, Dark-Yellow Appearance, Urine Clear Clear Specific [place], Urine 1.014 1.005 - 1.035 pH, Urine [...] and one with Ronna Carpenter at our [place] location. We will arrange outpatient follow-up The patient was seen and discussed with attending physician Dr. Adhikari. The assessment and plan was communicated to the care team. Thank you for the consultation and for the opportunity to contribute to the care of this patient. Danna Alves MD PGY2, Dermatology Epic chat (preferred) Team pager [phone] Jennifer Pena, Randi beal PAkiko, Hu Eubanks, Mónica Oakley, Latrell Ware, Latrell Mayen, Paolo Valdez., Johana Edward, Sj Cummings, Yue Roland. and Aure Rodgers., 2023. Efficacy [...] 09/14/2024 Patient weight is as follows: Vitals: 09/13/241 Weight: 101 kg (222 lb 3.6 oz) [...] clinical response, and signs/symptoms of toxicity. Trudi Luna PharmD documented in this encounter [facility] Work Phone: 09-15-2024 Plan of care note [...] within reach, safety maintained. Zuleyma Sanchez RN [facility] Work Phone: 09-15-2024 Hospital Note Formatting of t his note might be different from the original. Kevan La is a 49 y.o. male presenting with PMH of severe hidradenitis supprativa (disease on left buttock and gluteal fold) on STOP HS-301 trial (povorcitinib, small molecule JAK1 inhibitor) presenting with new wound infection from [facility] ED. He has a long-standing history of [...] the trial drug. 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 He used to live in [place]. Denies any sick contacts. He also reports worsening left leg weakness since May (he used to walk with a limp, now has to shuffle). He has both a dry cough that sometimes culminates in post-tussive emesis. On 09/12, he came in with a draining left thigh wound, dry cough and shortness of breath to the [facility] ED. He had some post-tussive emesis. He came in with a fever to 100.4 , tachycardia to 102. He was started on Vanc/Zosyn, got 2 L of NS, and got toradol and morphine for pain. No real culture data history for infections except for rare gram positive cocci in 2015. On 09/13, on arrival at [facility], denies any pain, but has an intermittent [...] as pt expressed interest in quitting smoking. [facility] Work Phone: 09-14-2024 Plan of care note The patient's goals for the shift include The clinical goals for the shift include patien twill remaini safe and free rom falls during shift [facility] 09-14-2024 Consult note Associated Order (s): WOUND [...] 09/14/24 1211 Wound Length (cm) 2.5 cm 09/14/241 Wound Width (cm) 2 cm 09/14/24 1211 Wound Surface Area (cm^2) 5 cm^2 09/14/24 1211 Wound Depth (cm) 1 cm 09/14/24 1211 Wound Volume (cm^3) 5 cm^3 09/14/24 1211 State of Healing Undermining 09/14/24 1211 Undermining 4 cm 09/14/241 Undermining Clock Position of Wound 6 09/14/241 Margins Well-defined edges 09/14/24 1211 Treatments Cleansed;Packings;Site care 09/14/241210 Drainage Description Bourne;Purulent 09/14/241 Drainage Amount Large 09/14/241 Dressing Hydrofiber;Packed;ABD 09/14/241 Dressing Changed New 09/14/241 Dressing Status Dry;Clean 09/14/241 Wound Team Summary Assessment: The wound care [...] left buttock wound with AMD packing strip (FILM PROCESS OPERATOR #[id number] or [id number]) Cover the surrounding abscess wounds with 2 sheets of Aquacel Ag (FILM PROCESS OPERATOR#[id number]) Cover the wounds with multiple ABD pads Xiomara Palmer RN CWON 09/14/2024 1:14 PM [facility] 09-14-2024 Consult note Associated Order (s): IP CONSULT TO ACUTE CARE SURGERY [facility] ACUTE CARE SURGERY - CONSULT Patient Name: [...] any questions Seen with Dr. Dequan Petty [facility] [address] CHIEF COMPLAINT/REASON FOR CONSULT: Patient has an [...] for evaluation and then was transferred to [facility] for more definitive management. Since admission here [...] End Date Taking? Authorizing Provider Study STOP-HS1 [id number] povorcitinib 45mg or 75mg tablet Take 1 tablet by mouth once daily. Preferably in the morning, with a full glass of water. 02/29/24 Kimber Last MD Study STOP-HS1 [id number] povorcitinib 45mg or 75mg tablet Take 1 tablet by mouth once daily. Preferably in the morning, with a full glass of water. 04/04/24 Kimber Last MD Study STOP-HS1 [id number] povorcitinib 45mg or 75mg tablet Take 1 tablet by mouth once daily. Preferably in the morning, with a full glass of water. 04/12/24 Kimber Last MD Study STOP-HS1 [id number] povorcitinib 45mg or 75mg tablet Take 1 tablet by mouth once daily. Preferably in the morning, with a full glass of water. 05/27/24 Marlon Christiansen MD Study STOP-HS1 [id number] povorcitinib 45mg or 75mg tablet Take 1 tablet by mouth once daily. Preferably in the morning, with a full glass of water. 07/08/24 Marlon Christiansen MD Study STOP-HS1 [id number] povorcitinib 45mg or 75mg tablet Take 1 tablet by mouth once daily. Preferably in the morning, with a full glass of water. 08/20/24 Marlon Christiansen MD Study STOP-HS1 [id number] povorcitinib 45mg, 75mg or placebo tablet Take 1 tablet by mouth once daily. Preferably in the morning, with a full glass of water. 12/11/23 Kimber Last MD Study STOP-HS1 [id number] povorcitinib 45mg, 75mg or placebo tablet Take 1 tablet by mouth once daily. Preferably in the morning, with a full glass of water. 12/29/23 Kimber Last MD Study STOP-HS1 [id number] povorcitinib 45mg, 75mg or placebo tablet Take 1 tablet by mouth once daily. Preferably in the morning, with a full glass of water. 01/16/24 Kimber Last MD Study STOP-HS1 [id number] povorcitinib 45mg, 75mg or placebo tablet Take [...] Results from last 7 days Lab Units 12/28/24 0650 09/13/24 2314 WBC AUTO x10*3/uL 13.1* [...] Prasanth Baires MD Attending Acute Care Surgery [facility] Work Phone: 09-14-2024 Consult note Associated Order [...] and apremilast. He was being treated by [facility]. Pt reports that he has been on multiple therapies and was not able to list all the medications he has previously tried. He did recognize the names of the above medications. Flexo Operator is unable to access paper charts [...] at the time when talking to the poem writer. Notes increased fatigue. Denies any fevers, [...] back on smoking. 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 Hospital Course - 09/12 he came in with a draining left thigh wound, dry cough, and shortness of breath to [facility] ED - Vitals: T 100.4, HR 102 - Labs: WBC 17.8, Hgb 8.9, platelets 568, CMP Cr 1.48, lactic acid 2 - CT abdomen/pelvis: subcutaneous edema and subcutaneous emphysema of the left buttock extending along the posterior thigh. Extension of fluid into the posterior deep intramuscular fascia of the posterior left thigh. - Vanc/zosyn started - toradol/morphine for pain - 09/13 transferred to [facility] - Labs: WBC 13.4, Hgb [...] Yellow, Dark-Yellow Appearance, Urine Clear Clear Specific [place], Urine 1.014 1.005 - 1.035 pH, Urine [...] and one with Ronna Carpenter at our [place] location. We will arrange outpatient follow-up The patient was seen and discussed with attending physician Dr. Adhikari. The assessment and plan was communicated to the care team. Thank you for the consultation and for the opportunity to contribute to the care of this patient. Danna Alves MD PGY2, Dermatology Epic chat (preferred) Team pager [phone] Jennifer Pena, Randi beal, P.Y., Mert Eubanks., Mónica Oakley, Amaris Ware., Amaris Mayen., José Miguel T.Cheryl., Cheyanne, T.Alejo., Yue Cummings., Yue Roladn. and Vishal, K.Kamila., 2023. Efficacy and durability of intravenous ertapenem [...] decision making as documented in the note. [facility] Work Phone: 09-14-2024 Consult note Associated Order [...] clinical response, and signs/symptoms of toxicity. Trudi Luna PharmD [facility] Work Phone: 09-13-2024 Emergency department Note Pt leaving [facility] ED at this time to go to . Belongings with EMS. [facility] 09-13-2024 Emergency department Note Pt leaving [facility] ED at this time to go to . Belongings with EMS. Report called to RN. RN informed vancomycin was stopped for transport. [facility] ETA 8pm transfer line called - pt will go to [facility]- 5016 bed A. Number for report [phone] [facility] Research Nurse called back. Per the Research Physician, the patient does not have to be transferred to [facility]. All that needs to be done is a "Biologic Medication" needs prescribed, and the patient can be admitted here. The patient is in an outpatient study. If any further questions, we can contact AMAN Hancock @ [phone]. Patient is in a study at [facility]. He has provided a card for his physician and nurse in the study. I contacted the nurse "Karissa" and left a message @ [phone]. Patient is on the waiting list for and as of 0800 today there are still no rooms available at for this patient. Karissa called back and will contact her MD's over her and will get back with me. [facility] ED EMERGENCY DEPARTMENT ENCOUNTER Pt Name: Kevan [...] Procedure Abnormality Status --------- ------ Culture, Aerobic Bacteri...[[id number]] In process Anaerobic culture[[id number]] In process Please view results for these [...] clinical trial is. As below, accepted by main campus. I discussed test results and plan with the patient. ED Course as of 09/12/24 2341 [place] Sep 12, 20242011 Draining L thigh wound (hx of HS), fatigue, dehydration. Symptoms chronic but worse than usual. Notes dry cough and shortness of breath with walking. No chest pain. Has some post-tussive emesis. Denies other significant medical issues besides incontinence. [RADHA] 2017 Exam significant for multiple wounds on the L buttocks draining pus. Induration. No fluctuance. [RADHA] 2017 Pt also notes he is on a Derm clinical trial with a treatment for HS (Study STOP-HS1 [id number] povorcitinib 45mg or 75mg tablet) [RADHA] 2206 I discussed with general surgery Dr. Marcus who agreed with antibiotics and admission and will likely need surgery at some point. Recommended admitting where the patient is currently on trial. [RADHA] 2308 About 5 minutes ago I discussed over the phone with Dr. Quintero from [facility] who accepted the admission. [RADHA] ED Course User Index [RADHA] Xiomara Kauffman MD Diagnoses as of 09/12/24 2341 Buttock wound, left, initial encounter Sepsis, due [...] Xiomara Kauffman MD JUAN Emergency Medicine Physician [facility] Xiomara Kauffman MD 09/12/24 7727 documented in this encounter [facility] 09-13-2024 Emergency department Note Report called to RN. RN informed vancomycin was stopped for transport. [facility] 09-13-2024 History and physical note Images from the original note were not included. History Of Present Illness Kevan La is a 49 y.o. male presenting with PMH of severe hidradenitis supprativa (disease on left buttock and gluteal fold) on STOP HS-301 trial (povorcitinib, small molecule JAK1 inhibitor) presenting with new wound infection from [facility] ED. He has a long-standing history of [...] the trial drug. 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 He used to live in [place]. Denies any sick contacts. He also reports worsening left leg weakness since May (he used to walk with a limp, now has to shuffle). He has both a dry cough that sometimes culminates in post-tussive emesis. On 09/12, he came in with a draining left thigh wound, dry cough and shortness of breath to the [facility] ED. He had some post-tussive emesis. He [...] Seminars and Arthritis and Rheumatism). Here at [facility], denies any pain, but has an intermittent dry cough. His wound is draining large amounts of yellow/lieberman fluid. 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 ED. #New wound infection with purulent drainage [...] decision making as documented in the note. [facility] Work Phone: 12-27-2024 History and physical note Images from the original note were not included. History Of Present Illness Kevan La is a 49 y.o. male presenting with PMH of severe hidradenitis supprativa (disease on left buttock and gluteal fold) on STOP HS-301 trial (povorcitinib, small molecule JAK1 inhibitor) presenting with new wound infection from [facility] ED. He has a long-standing history of [...] the trial drug. 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 He used to live in [facility]. Denies any sick contacts. He also reports worsening left leg weakness since May (he used to walk with a limp, now has to shuffle). He has both a dry cough that sometimes culminates in post-tussive emesis. On 09/12, he came in with a draining left thigh wound, dry cough and shortness of breath to the [facility] ED. He had some post-tussive emesis. He [...] Seminars and Arthritis and Rheumatism). Here at [facility], denies any pain, but has an intermittent dry cough. His wound is draining large amounts of yellow/lieberman fluid. 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 ED. #New wound infection with purulent drainage [...] in the note. documented in this encounter [facility] Work Phone: 09-13-2024 Emergency department Note [facility] ETA 8pm [facility] 09-13-2024 Emergency department Note transfer line called - pt will go to [facility]- 5016 bed A. Number for report [phone] [facility] 09-13-2024 Consult note Formatting of th [...] creatinine, and vancomycin levels interfaced automatically to [place] and data has been analyzed and interpreted. [...] RPh Clinical Pharmacist Available via Secure Chat [facility] 09-13-2024 Consult note Formatting of th [...] creatinine, and vancomycin levels interfaced automatically to [place] and data has been analyzed and interpreted. [...] DATE: 09/13/24 TIME: 11:05 AM Melva Mcdonald [facility] Clinical Pharmacist Available via Secure Chat documented in this encounter [facility] 09-13-2024 Emergency department Note [facility] Research Nurse called back. Per the Research Physician, the patient does not have to be transferred to [facility]. All that needs to be done is a "Biologic Medication" needs prescribed, and the patient can be admitted here. The patient is in an outpatient study. If any further questions, we can contact AMAN Hancock @ [phone]. [facility] 09-13-2024 Emergency department Note Patient is in a study at [facility]. He has provided a card for his physician and nurse in the study. I contacted the nurse "Karissa" and left a message @ [phone]. Patient is on the waiting list for and as of 0800 today there are still no rooms available at for this patient. Karissa called back and will contact her MD's over her and will get back with me. [facility] 09-12-2024 Physician Emergency department Note [facility] ED EMERGENCY DEPARTMENT ENCOUNTER Pt Name: Kevan [...] Procedure Abnormality Status --------- ------ Culture, Aerobic Bacteri...[[id number]] In process Anaerobic culture[[id number]] In process Please view results for these [...] clinical trial is. As below, accepted by [facility]. I discussed test results and plan with [...] with a treatment for HS (Study STOP-HS1 [id number] povorcitinib 45mg or 75mg tablet) [RADHA] 2206 I discussed with general surgery Dr. Marcus who agreed with antibiotics and admission and will likely need surgery at some point. Recommended admitting where the patient is currently on trial. [RADHA] 2308 About 5 minutes ago I discussed over the phone with Dr. Quintero from [facility] who accepted the admission. [RADHA] ED Course User Index [RADHA] Xiomara Kauffman MD Diagnoses as of 09/12/24 2341 Buttock wound, left, initial encounter Sepsis, due [...] Xiomara Kauffman MD JUAN Emergency Medicine Physician [facility] Xiomara Kauffman MD 09/12/24 2341 [facility] 08-20-2024 History of Present illness Narrative Patient seen for Week 36 of STOP HS-301 trial by Marlon Christiansen MD No serious adverse events or major changes in concomitant medications noted. Please see physical copy of notes located in subject binder for additional information. documented in this encounter [facility] Work Phone: 04-04-2024 History of Present illness Narrative Patient seen for Unscheduled Visit of STOP HS-301 trial by Kimber Last MD No serious adverse events or major changes in concomitant medications noted. Please see physical copy of notes located in subject binder for additional information. documented in this encounter [facility] Work Phone: Evaluation note Diagnosis Hidradenitis suppurativa- Primary [facility]radenitis [facility] Clinical trial participant- Primary Clinical trial participant documented in this encounter [facility] Work Phone: Evaluation note* Diagnosis Clinical trial participant documented in this encounter [facility] Work Phone: Evaluation note* Diagnosis Clinical trial participant documented in this encounter [facility] Work Phone: Evaluation note* Diagnosis Clinical trial participant- Primary documented in this encounter [facility] Work Phone: [phone] note* Diagnosis Clinical trial participant- Primary documented in this encounter [facility] Work Phone: [phone] note* Diagnosis Clinical trial participant- Primary documented in this encounter [facility] Work Phone: [phone] note* Diagnosis Clinical trial participant- Primary documented in this encounter [facility] Work Phone: [phone] note* Diagnosis Clinical trial participant- Primary documented in this encounter [facility] Work Phone: [phone] note* Diagnosis Clinical trial participant documented in this encounter [facility] Work Phone: [phone] note* Diagnosis Clinical trial participant- Primary documented in this encounter [facility] Work Phone: [phone] note* Diagnosis Clinical trial participant- Primary documented in this encounter [facility] Work Phone: [phone] note* Diagnosis Buttock wound, left, initial encounter- Primary Sepsis, due to unspecified organism, unspecified whether acute organ dysfunction present (HCC) Hidradenitis suppurativa Hidradenitis [facility] Wound infection- Primary Posttraumatic wound infection not elsewhere classified Wound infection Posttraumatic wound infection not elsewhere classified Nausea Nausea alone Constipation, unspecified constipation type Viral infection Smoking Tobacco use disorder Hidradenitis suppurativa Hidradenitis documented in this encounter [facility] Work Phone: [phone] note* Diagnosis Wound infection- Primary Posttraumatic wound infection not elsewhere classified Wound infection Posttraumatic wound infection not elsewhere classified Nausea Nausea alone Constipation, unspecified constipation type Viral infection Smoking Tobacco use disorder Hidradenitis suppurativa Hidradenitis documented in this encounter [facility] Work Phone: [phone] note* Diagnosis Counseling on health promotion and disease prevention- Primary Other specified counseling Hidradenitis suppurativa Hidradenitis documented in this encounter [facility] Work Phone: Evaluation note* Diagnosis Clinical trial participant- Primary documented in this encounter [facility] Work Phone: Evaluation note* Diagnosis Gluteal abscess- [...] due to Staphylococcus documented in this encounter [facility] Work Phone: Evaluation note* Diagnosis Abscess- Primary Cellulitis and abscess of unspecified site Abscess Cellulitis and abscess of unspecified site [facility] Diagnosis Gluteal abscess- Primary Cellulitis and [...] alone Opioid-induced constipation documented in this encounter [facility] Work Phone: Evaluation note* Diagnosis Gluteal abscess- [...] left hip Hypercalcemia documented in this encounter [facility] Work Phone: Evaluation note* Diagnosis Abscess of left hip- Primary Abscess of left hip [facility] Diagnosis Gluteal abscess- Primary Cellulitis and [...] Rhinitis, unspecified type documented in this encounter [facility] Work Phone: Evaluation note* Diagnosis Gluteal abscess- [...] of malignancy Hypercalcemia documented in this encounter [facility] Work Phone: Evaluation note* Diagnosis Sepsis, due to unspecified organism, unspecified whether acute organ dysfunction present (HCC)- Primary Sepsis, due to unspecified organism, unspecified whether acute organ dysfunction present (HCC) Abscess of left hip [facility] Work Phone: Evaluation note* Diagnosis Gluteal abscess- [...] limb, including hip documented in this encounter [facility] Work Phone: Evaluation note* Diagnosis Gluteal abscess- [...] limb, including hip documented in this encounter [facility] Work Phone: Evaluation note* Diagnosis Gluteal abscess- [...] limb, including hip documented in this encounter [facility] Work Phone: Evaluation note* Diagnosis Gluteal abscess- [...] limb, including hip documented in this encounter [facility] Work Phone: Evaluation note* Diagnosis Gluteal abscess- [...] limb, including hip documented in this encounter [facility] Work Phone: Evaluation note* Diagnosis Gluteal abscess- [...] limb, including hip documented in this encounter [facility] Work Phone: Evaluation note* Diagnosis Gluteal abscess- [...] kidney disease, unspecified Bacteremia due to Staphylococcus Wound of thigh- Primary Post-operative state Other postprocedural status Encounter for change of dressing documented in this encounter [facility] Work Phone: Evaluation note* Diagnosis Gluteal abscess- [...] unspecified Bacteremia due to Staphylococcus Encounter for monitoring opioid maintenance therapy- Primary 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 Abscess Cellulitis and abscess of unspecified site Other insomnia Constipation due to pain medication therapy documented in this encounter [facility] Work Phone: Evaluation note* Diagnosis Gluteal abscess- [...] to Staphylococcus Squamous cell carcinoma of left thigh- Primary documented in this encounter [facility] Work Phone: Reason for referral (narrative)No reason for referral information availableWOhio [facility] Work Phone: Reason for visit Narrative* Auth/Cert Specialty Diagnoses / Procedures Referred By Contac t Referred To Contact Diagnoses Sepsis Procedures [place] [address] [place] [address] Phone: tel: fax: [facility] [phone] [facility] [place] [address] Referral ID Status Reason Start Date Expiration Date Visits Re quested Visits Authorized [id number] 1 1 [facility] Work Phone: Rezgdo for visit Narrative* Auth/Cert (Routine) Specialty Diagnoses / Procedures Referred By Contac t Referred To Contact Diagnoses Gluteal abscess Gluteal mass [place] [address] [place] [address] Phone: tel: fax: [facility] [address] [address] [place] [address] Phone: tel: Referral ID Status Reason Start Date Expiration Date Visits Re quested Visits Authorized [id number] 1 1 [facility] Work Phone: Redecd for visit Narrative* SCC Consult (Routine) - Authorized Specialty Diagnoses / Procedures Referred By Contac t Referred To Contact Hematology and Oncology Diagnoses Squamous cell [place] [address] [place] [address] Phone: tel: fax: [place] [address] [place] [address] Phone: tel: fax: Referral ID Status Reason Start Date Expiration Date Visits Requested Visits Authorized [id number] Authorized Specialty Services Required 11/19/2024 11/19/2025 1 1 [facility] Work Phone: Reelve for visit Narrative* Auth/Cert Specialty Diagnoses / Procedures Referred By Contac t Referred To Contact Diagnoses [place] [address] [place] [address] Phone: tel: fax: [facility] [phone] [facility] [place] [address] Referral ID Status Reason Start Date Expiration Date Visits Re quested Visits Authorized [id number] 1 1 [facility] Work Phone: Reason for visit Narrative* SCC Consult (Routine) - Authorized Specialty Diagnoses / Procedures Referred By Controlo t Referred To Contact Palliative Medicine / Hematology and Oncology Diagnoses Cancer associated pain Omaira Clayton APRN-NEHAL [address] [place] [address] Phone: tel: fax: Referral ID Status Reason Start Date Expiration Date Visits Requested Visits Authorized [id number] Authorized Specialty Services Required 11/25/2024 11/25/2025 1 1 [facility] Work Phone: Reason for Referral Specialty Diagnoses / Procedures Referred By Adrian t Referred To Contact Diagnoses Clinical trial participant Procedures ECG 12 lead (Ancillary Performed) Myles Lutz MD PhD [address] [place] [address] Referral ID Status Reason Start Date Expiration Date V isits Requested Visits Authorized [id number] Authorized 02/29/2024 02/28/2025 1 1 Advance Directives Date Activated Date Inactivated Comments 09/13/2024 9:41 [...] Reason for Visit Chief Complaint Admit Date [facility] WORK October 24, 2024 5:00am Chief Complaint Admit Date [facility] WORK October 24, 2024 5:00am [facility] December 04, 2024 5 :00am Additional Source Comments Reason for Visit (unrecogniz ed section and content) Reason Comments Wound Check Specialty Diagnoses / Procedures Referred By Adrian melgar Referred To Contact Diagnoses Abscess of left hip Procedures . Juvenal Mathur MD [address] [place] [address] Phone: tel: fax: [facility] [address] [place] [address] Phone: tel: Referral ID Status Reason Start Date Expiration Date Visits Re quested Visits Authorized [id number] 1 1 Specialty Diagnoses / Procedures Referred By Adrian melgar Referred To Contact Diagnoses Clinical trial participant Procedures ECG 12 lead (Ancillary Performed) Myles Lutz [place] PhD [address] [facility] Department [place] [address] Referral ID Status Reason Start Date Expiration Date V isits Requested Visits Authorized [id number] Authorized 02/29/2024 02/28/2025 1 1 Reason Comments Dehydration Fatigue Patient arrived to E D c/o dehydration and fatigue for a few days. Also c/o cough. Specialty Diagnoses / Procedures Referred By Adrian melgar Referred To Contact Diagnoses . Procedures . [facility] [address] [place] [address] Phone: tel: [facility] ED [address] [place] [address] Phone: tel: Referral ID Status Reason Start Date Expiration Date Visits Re quested Visits Authorized [id number] 1 1 Reason Comments Wound Check Pt arrives from SNF for possible sepsis. Had wound on buttock drained at in Sep. Has not had IV antibiotics at facility. Hx of rare skin condition with frequent abscesses. Aox4. Some N/V. Hypotensive 80-90 systolic. Reason Comments Follow-up Reason Comments Wound Infection Pt [facility] by [facility] [place] [facility] pt has had wound infection since September, pt stood up out of bed last night and it started bleeding and having a foul odor last night. Specialty Diagnoses / Procedures Referred By Controlo t Referred To Contact Diagnoses Sepsis, due to unspecified organism, unspecified whether acute organ dysfunction present (HCC) Procedures . Clarita Hay DO [address] [facility] [place] [address] Phone: tel: fax: [facility] [address] [place] [phone] Phone: tel: Referral ID Status Reason Start Date Expiration Date Visits Re quested Visits Authorized [id number] 1 1 Reason Comments OTV In house [...] mL/hr, Administer over 0.5 Hours, Once, On Key 09/12/24 at 2105, For 1 dose, Mini-Bag Plus bag, Suspected Indication (Select all that apply): Skin and Soft Tissue Infection 2201 (New Bag - Provider: Kristy Montes RN)2231 (Stopped - Provider: Kristy Montes RN) piperacillin-tazobactam (Zosyn) 4,500 mg [...] Diamond Gan RN)1202 (Stopped - Provider: Yenny Unger, AMAN)1839 (New Bag - Provider: Yenny Unger RN)192 (Stopped - Provider: Diamond Gan RN) sodium [...] mL/hr, Administer over 120 Minutes, Once, On Mon09/12/24 at 2300, For 1 dose, premix bag, Suspected Indication (Select all that apply): Skin and Soft Tissue Infection 2239 (New Bag - Provider: Kristy Montes RN) 004 (Stopped - Provider: Kristy Montes RN) vancomycin in NS (Vancocin) IVPB 2,000 mg 2,000 mg, IntraVENous, at 250 mL/hr, Administer over 120 Minutes, Every 24 hours, First dose on Mon09/13/24 at 2000, premix bag, Suspected Indication (Select all that apply): Skin and Soft Tissue Infection 1955 (New Bag - Prov ider: Yenny Unger, AMAN)2014 (Stopped - Provider: Diamond Gan RN) PRN [...] hour of each other unless specifically ordered. 1742 (Given - Provid er: Yenny Unger RN) iopamidol (Isovue-370) 76 % injection 75 mL (COMPLETED) 75 mL, IntraVENous, IMG once PRN, contrast, Starting on Key 09/12/24 at 2133, For 1 dose 213 (Given - Provider: Kristy Horn, RT (R)(CT)) [...] Selena Saba RN)1527 (Given - Provider: Yenny Unger, AMAN) naloxone (Narcan) injection 0.4 mg 0.4 mg, IntraVENous, Every 5 min PRN, opioid reversal, respiratory depression, Starting on Mon09/13/24 at 1050, +++ For RR <10, pinpoint pupils, over sedation for opioid reversal - MUST notify information technology administrator provider immediately after first dose, may give IM or SQ if no IV access +++ Scheduled Medication Order 09/15/2024 09/16/2024 09/17/2024 acetaminophen (Tylenol) tablet 975 mg 975 mg, oral, Every 8 hours, First dose (after last modification) on Mon09/13/24 at 2315, If ordered PRN for pain, nurse is permitted to administer this medication for higher pain scores based on patient preference? Yes 1218 (Given - Provider: Carley Arevalo RN)1416 (Given - Provider: Zuleyma Sanchez RN) 0531 (Not Given - Provider: Carley Arevalo RN - Reason: Patient/family refused)0658 (Given - Provider: Carley Arevalo RN)1632 (Given - Provider: Zuleyma Sanchez RN)2224 (Given - Provider: Carley Arevalo RN) 0902 (Given - Provider: Ronald Adair RN)1515 (Due)2315 (Due) cetirizine (ZyrTEC) tablet 10 mg [...] RN) 0826 (Given - Provider: Jose Armando Oorzco RN) 0902 (Given - Provider: Ronald Adair [...] pain scores based on patient preference? Yes 124 (Given - Provider: Jose Armando Orozco RN - Comment: medicated prior to cressing change.)2200 (Given - Provider: Carley Arevalo RN) 0506 (Given - Provider: Carley Arevalo RN)1232 (Given - Provider: Jose Armando Orozco RN - Comment: given prior to dressing chnage.)2224 (Given - Provider: Carley Arevalo RN) 1043 (Given - Provider: Ronald Adair RN) [...] RN) 0902 (Given - Provider: Ronald Adair RN)1515 (Due)2315 (Due) cetirizine (ZyrTEC) tablet 10 mg [...] 0956, For 85 hours, On hold since Mon09/15/2024 at 1017 until manually unheld 1017 (Held by provider - Provider: Shane Galeano MD - Reason: Other) nicotine polacrilex (Nicorette) gum 2 mg 2 mg, Mouth/Throat, Every 2 hour PRN, smoking cessation, Starting on Mon09/15/24 at 1022 2009 (Given - Provider: Carley [...] RN - Comment: medicated prior to cressing change.)220 (Given - Provider: Carley Arevalo RN) 0506 (Given - Provider: Carley Arevalo RN)1232 (Given - Provider: Jose Armando Orozco RN - Comment: given prior to dressing chnage.)2224 (Given - Provider: Carley Arevalo RN) 1043 (Given - Provider: Ronald Adair RN) [...] Paul RN)1516 (Given - Provider: Palma Paul RN)205 (Given - Provider: Ericka Perkins RN) 0930 (Given - Provider: Neva Gibbs, AMAN)1430 (Given - Provider: Neva Gibbs RN)2114 (Given - Provider: Kathryn Araujo RN) 0948 (Given - Provider: Latricia Rm RN)1500 (Due)2100 (Due) ampicillin-sulbactam (Unasyn) 3 g in sodium chloride 0.9% IV 100 mL 3 g, intravenous, at 200 mL/hr, Administer over 30 Minutes, Every 6 hours, First dose on 10/19/24 at 0800, Mini-Bag Plus/ADD-Morrill bag, Suspected Indication (Select all that apply): Cellulitis, Skin and Soft Tissue, Type of Therapy: Empiric, Indications: Cellulitis, Skin and Soft Tissue 0215 (New Bag - Provider: Ericka Perkins RN)0327 (Stopped - Provider: Ericka Perkins RN)0858 (New Bag - Provider: Palma Paul RN)1023 (Stopped - Provider: Palma Paul RN)1515 (New Bag - Provider: Palma Paul RN)1612 (Stopped - Provider: Palma Paul RN)205 (New Bag - Provider: Ericka Pekrins RN)2252 (Stopped - Provider: Ericka Perkins RN) 0159 (New Bag - Provider: Ericka Perkins RN)0240 (Stopped - Provider: Ericka Perkins RN)0900 (New Bag - Provider: Neva Gibbs RN)0946 (Stopped - Provider: Neva Gibbs, AMAN)1430 (New Bag - Provider: Neva Gibbs, AMAN)1445 (Stopped - Provider: Neva Gibbs, AMAN)2114 (New Bag - Provider: Kathryn Araujo RN)2145 (Stopped - Provider: Kathryn Araujo, RN) 0307 (New Bag - Provider: Kathryn [...] wounds 0857 (Given - Provider: Palma Paul RN)2101 (Given - Provider: Ericka Perkins RN) 0900 (Given - Provider: Neva Gibbs RN)2111 (Given - Provider: Kathryn Araujo RN) 0950 (Given - Provider: Latricia Rm RN)2100 (Due) heparin (porcine) injection 5,000 Units [...] 5 mL 5 mL, infiltration, Once, On Mon10/19/24 at 0915, For 1 dose polyethylene glycol [...] RN) 0930 (Given - Provider: Neva Gibbs RN)1500 (Not Given - Provider: Neva Gibbs RN - Reason: Medication not available)2114 (Given - Provider: Kathryn Araujo RN) 0948 (Given - Provider: Latricia Rm RN)1500 (Due)2100 (Due) varenicline tartrate (Chantix) tablet [...] therapy 1 week before target quit date. 0854 (Given - Provider: Palma Paul RN) varenicline tartrate (Chantix) tablet 0.5 mg(Linked Group 1) 0.5 mg, oral, 2 times daily, First dose on Mon10/22/24 at 0900, For 4 days, Increased frequency on days 4-7, then increased dose to 1 mg twice daily from day 8 through the end of 12 weeks of treatment. 0930 (Given - Provider: Neva Gibbs RN)2114 (Given - Provider: Kathryn Araujo RN) 0948 (Given - Provider: Latricia Rm RN)2100 (Due) varenicline tartrate (Chantix) tablet 1 mg(Linked [...] Kathryn Araujo RN)0737 (Given - Provider: Latricia Rm, AMAN)1232 (Given - Provider: Latricia Rm RN) oxyCODONE [...] mg from all sources in 24 hours. 152 (Given - Provider: Allison Treadwell RN) acetaminophen (Tylenol) tablet 1,000 mg 1,000 mg, Oral, Every 8 hours scheduled (3 times per day), First dose on Mon11/08/24 at 2035, Maximum dose of acetaminophen is 4000 mg from all sources in 24 hours. 2103 (Given - Provider: Allison Treadwell RN) 0511 (Given - Provider: Jamison Maldonado RN)1347 (Given - Provider: Sabrina Ricks RN)2105 (Given - Provider: Chuck Cisneros, AMAN) enoxaparin (Lovenox) syringe 40 mg 40 mg, [...] hour of each other unless specifically ordered. 1526 (Given - Provider: Allison Treadwell RN) ondansetron (Zofran) injection 4 mg (COMPLETED) 4 mg, IntraVENous, Once, On Mon11/08/24 at 1515, For 1 dose 1526 (Given - Provider: Allison Treadwell RN) oxyCODONE (Roxicodone) immediate release tablet 5 mg (COMPLETED) 5 mg, Oral, Once, On Mon11/08/24 at 1720, For 1 dose 2104 (Given - Provider: Allison Treadwell RN - Comment: bp and map too low earlier) piperacillin-tazobactam (Zosyn) IVPB 3,375 mg 3,375 mg, IntraVENous, at 12.5 mL/hr, Administer over 4 Hours, Every 8 hours, First dose on Mon11/08/24 at 2200, premix bag, Suspected Indication (Select all that apply): Skin and Soft Tissue Infection 2105 (New Bag - Provider: Allison Treadwell RN) 0232 (Stopped - Provider: Allison Treadwell RN)0704 (New Bag - Provider: Jamison Maldonado RN)1104 (Stopped - Provider: María Yang RN)1440 (New Bag - Provider: María Yang RN)1840 (Stopped - Provider: María Yang RN)2107 (New Bag - Provider: Chuck Cisneros RN) 0107 (Stopped - Provider: Chuck Cisneros RN) [...] Allison Treadwell RN)1823 (Stopped - Provider: Mary Mackey RN) sodium chloride 0.9 % bolus 1,000 [...] hours, First dose on Mon11/09/24 at 0500, ADD-Morrill bag, Suspected Indication (Select all that apply): Skin and Soft Tissue Infection 0512 (New Bag - Provider: Jamison Maldonado RN)0642 (Stopped - Provider: María Yang RN)1848 (New Bag - Provider: María Yang, RN)2018 (Stopped - Provider: Chuck Cisneros RN) vancomycin in NS (Vancocin) IVPB 2,000 mg (COMPLETED) 2,000 mg (rounded from 2,080 mg = 20 mg/kg 104 kg), IntraVENous, at 250 mL/hr, Administer over 120 Minutes, Once, On Mon11/08/24 at 1555, For 1 dose, premix bag, Suspected Indication (Select all that apply): Skin and Soft Tissue Infection 1701 (New Bag - Provider: Allison Treadwell RN)2101 (Stopped - Provider: Allison Treadwell RN) PRN [...] pupils, RR < 8; notify primary team information technology administrator if used ondansetron (Zofran) injection 4 mg(Linked [...] Starting on Mon11/08/24 at 2026, 1st Line. If inadequate response within 60 [...] RN)0910 (See Alternative - Provider: María Yang, AMAN)1848 (See Alternative - Provider: María Yang RN) 0156 (See Alternative - Provider: Chuck Cisneros RN) oxyCODONE (Roxicodone) immediate release tablet 5 mg(Linked Group 2) 5 mg, Oral, Every 4 hours PRN, severe pain (7-10), Starting on Mon11/08/24 at 2027 0237 (Given - Provider: Allison Treadwell RN)0910 (Given - Provider: María Yang RN)1848 (Given - Provider: María Yang RN) 0156 (Given - Provider: Chuck Cisneros RN) Linked Groups Order Group 1: ondansetron ODT (Zofran-ODT) disintegrating tablet 4 mgJump to med 4 mg, Oral, Every 8 hours PRN, nausea, vomiting, Starting on Mon11/08/24 at 2026, 1st Line. If inadequate response within 60 [...] Otoole LPN)1537 (Given - Provider: Tammy Otoole LPN)2037 (Given - Provider: Lena Ambriz RN) 0906 [...] Provider: Dani Serrato RN - Reason: Patient/family refused)2035 (Given - Provider: Lena Ambriz RN) 0907 (Not Given - Provider: Elsy Diaz RN - Reason: Patient/family refused - Comment: using vashe wound cleanser instead)2099 (Due) clindamycin (Cleocin T) 1 % gel Topical, 2 times daily, First dose on Mon11/10/24 at 0900, Apply to Wound around L buttock 0035 (Given - Provider: Fadia Goldsmith RN - Comment: 12 hours from last dressing change per nursing report)1341 (Given - Provider: Elsy Diaz RN) 0111 (Given - Provider: Ericka Mary RN - Comment: workflow)1006 (Given - Provider: Dani Serrato RN)203 (Given - Provider: Lena Ambriz RN) 1057 [...] Hours, Every 72 hours, First dose on 11/25/24 at 1200, Do not cut patch. Rotate [...] Daily, First dose (after last modification) on 11/16/24 at 0900 0930 (Given - Provider: Elsy Diaz RN) 0919 (Given - Provider: Tammy Otoole LPN) 09 (Given - Provider: Elsy Diaz RN) gabapentin [...] Mary RN)0918 (Given - Provider: Tammy Otoole LPN)1537 (Given - Provider: Tammy Otoole LPN)2036 (Given - Provider: Lena Ambriz RN) 09 (Not Given - Provider: Elsy Diaz RN - Reason: Patient/family refused)1607 (Not Given - Provider: Elsy Diaz RN - Reason: Patient/family refused)2099 (Due) melatonin tablet 3 mg 3 mg, oral, Nightly, First dose (after last modification) on Mon11/10/24 at 2100 2000 (Given - Provider: Ericka Mary RN) 2036 (Given - Provider: Lena Ambriz RN) 2099 (Due) multivitamin with minerals 1 tablet 1 [...] Provider: Cristi Reynoso, PharmD)2300 (Due - Provider: Alberto RiosD) polyethylene glycol (Glycolax, Miralax) packet 17 g 17 g, oral, 2 times daily, First dose (after last modification) on 11/10/24 at 0900 1217 (Given - Provider: Elsy Diaz RN)2003 (Not Given - Provider: Ericka Mary RN - Reason: Patient/family refused) 917 (Given - Provider: Tammy Otoole LPN)2041 (Not Given - Provider: Lena Ambriz RN - Reason: Patient/family refused - Comment: patient refused) 09 (Not Given - Provider: Elsy Diaz RN [...] LPN)2040 (Given - Provider: Lena Ambriz RN) 09 (Given - Provider: Elsy Diaz RN)2100 (Due) varenicline tartrate (Chantix) tablet 1 mg 1 mg, oral, 2 times daily, First dose on 11/10/24 at 0900, Give with meals and with a full glass of water. 0929 (Given - Provider: Elsy Diaz RN)2002 (Given - Provider: Ericka Mary RN) 918 (Given - Provider: Tammy Otoole LPN)2037 (Given - Provider: Lena Ambriz RN) 0905 (Given - Provider: Elsy Diaz RN)2100 (Due) [...] intravenous, As needed, opioid reversal, Starting on Mon11/10/24 at 0410 ondansetron (Zofran) injection 8 mg 8 mg, intravenous, Every 8 hours PRN, nausea/vomiting, first line, Starting on Mon11/20/24 at 1805, When administering via IV Push, administer over 3-5 minutes. 1017 (Given - Provider: Dani Serrato RN) oxyCODONE (Roxicodone) immediate release tablet 15 mg [...] Nithya Farnsworth RN)0929 (Given - Provider: Elsy Diaz RN) oxyCODONE (Roxicodone) immediate release tablet 20 mg 20 mg, oral, Every 3 hours PRN, pain severe (7-10), first line, pain moderate (4-6), first line, Starting on Mon11/25/24 at 1407, If ordered PRN for pain, [...] Lena Ambriz RN)1222 (Given - Provider: Elsy Diaz RN) prochlorperazine (Compazine) injection 10 mg 10 mg, intravenous, Every 6 hours PRN, nausea/vomiting, first line, nausea/vomiting, second line, Starting on Mon11/20/24 at 1805 Scheduled Medication Order 12/05/2024 12/06/2024 12/07/2024 enoxaparin (Lovenox) syringe 40 mg 40 mg, SubCUTAneous, Every 24 hours scheduled (Daily), First dose on Mon12/07/24 at 0900, Indication of Use: Prophylaxis-DVT/PE, Indications: Prophylaxis of Venous Thromboembolism 0928 (Given - Provid er: Margarita Stevens RN) [...] specifically ordered. 1504 (Given - Provider: Boris Marie RN) fentaNYL [...] mg (COMPLETED) 30 mg, IntraVENous, Once, On Mon12/07/24 at 1210, For 1 dose 1235 (Given - Provid er: Josie Townsend RN) ondansetron (Zofran) injection 4 mg (COMPLETED) 4 mg, IntraVENous, Once, On Mon12/07/24 at 0245, For 1 dose 0256 (Given [...] Reason: Other - Comment: not given by shift foreman - asked pharmacy to retime)1056 (New Bag [...] sedation for opioid reversal - MUST notify information technology administrator provider immediately after first dose, may give [...] Carmina Corona RN)0830 (Given - Provider: Shanel Norwood, AMAN)1730 (Due) amoxicillin-pot clavulanate (Augmentin) 875-125 mg per tablet 1 tablet 1 tablet, oral, Every 12 hours scheduled, First dose on 12/16/24 at 1345, Suspected Indication (Select all that apply): Cellulitis, Skin and Soft Tissue, Indications: Cellulitis, Skin and Soft Tissue 0114 (Given - Provider: Sharron Ponce RN)0908 (Given - Provider: Gaby Wyman RN)2036 (Given [...] Topical, 2 times daily, First dose on 12/07/24 at 2100, Apply to buttock 0917 (Not Given - Provider: Gaby Wyman RN - Reason: Patient/family refused)2223 (Not Given - Provider: Sharron Ponce RN - Reason: Patient/family refused) 0851 (Not Given - Provider: Rosa Mcfadden RN - Reason: Patient/family refused) 0536 (Given - Provider: Carmina Corona RN)1300 (Due - Provider: Shanel Norwood RN)2100 (Due) cholecalciferol (Vitamin D-3) tablet 1,000 Units 1,000 Units, oral, Daily, First dose (after last modification) on Mon12/11/24 at 0900 0908 (Given - Provider: Gaby Wyman RN) 0847 (Given - Provider: Rosa Mcfadden, AMAN) 0827 (Given - Provider: Shanel Norwood RN) clindamycin (Cleocin T) 1 % gel Topical, 2 times daily, First dose on 12/07/24 at 2100, Apply to buttock 1042 (Given - Provider: Gaby Wyman RN)2223 (Given - Provider: Sharron Ponce, AMAN) 0851 (Given - Provider: Rosa Mcfadden, AMAN) 0536 (Given - Provider: Carmina Corona RN)1300 (Due - Provider: Shanel Norwood RN)2100 (Due) enoxaparin (Lovenox) syringe 40 mg 40 mg, subcutaneous, Daily, First dose on Mon12/07/24 at 1700 0915 (Given - Provider: Gaby Wyman RN) 0848 (Given - Provider: Rosa Mcfadden RN) 08 (Given - Provider: Shanel Norwood RN) folic acid (Folvite) tablet 1 mg 1 mg, oral, Daily, First dose on Mon12/07/24 at 1730 0908 (Given - Provider: Gaby Wyman RN) 0847 (Given - Provider: Rosa Mcfadden RN) 08 (Given - Provider: Shanel Norwood RN) gabapentin (Neurontin) capsule 300 mg 300 mg, oral, 2 times daily, First dose (after last modification) on Mon12/17/24 at 0900, Capsules may be opened and sprinkled on food (eg, applesauce, orange juice, pudding 0908 (Given - Provider: Gaby Wyman RN)2035 (Given - Provider: Sharron Ponce RN) 0847 (Given - Provider: Rosa Mcfadden RN)2120 (Given - Provider: Carmina Corona RN) 08 (Given - Provider: Shanel Norwood RN)2099 (Due) lactated Ringer's bolus 1,000 mL (COMPLETED) 1,000 mL, intravenous, at 500 mL/hr, Administer over 2 Hours, Once, On Mon12/18/24 at 1100, For 1 dose 1054 (New Bag - Provider: Rosa Mcfadden RN)1138 (Rate/Dose Verify - Provider: Rosa Mcfadden RN)1254 (Stopped - Provider: Rosa Mcfadden RN) lidocaine (Xylocaine) 10 mg/mL (1 %) injection 0.1 mL 0.1 mL, subcutaneous, Once, On Mon12/12/24 at 1200, For 1 dose, Recovery (only), To be used for IV insertion ONLY melatonin tablet 3 mg 3 mg, oral, Nightly, First dose on Mon12/07/24 at 2100 2035 (Given - Provider: Sharron Ponce RN) 212 (Given - Provider: Carmina Corona RN) 2100 (Due) methadone (Dolophine) tablet 10 mg 10 mg, oral, Every 8 hours, First dose on Key 12/12/24 at 2200, Indication for use: Pain/Analgesia 0636 (Given - Provider: Sharron Ponce, AMAN)1431 (Given - Provider: Gaby Wyman RN)222 (Given - Provider: Sharron Ponce RN) 0627 (Given - Provider: Sharron Ponce, AMAN)1411 (Given - Provider: Rosa Mcfadden, AMAN)2121 (Given - Provider: Carmina Corona RN) 0514 (Given - Provider: Carmina Corona RN)1308 (Given - Provider: Shanel Norwood, AMAN)2199 (Due) polyethylene glycol (Glycolax, Miralax) packet 17 g 17 g, oral, Daily, First dose on 12/07/24 at 1815, Bowel Regimen - for prevention of constipation. 0915 (Not Given - Provider: Gaby Wyman RN - Reason: Patient/family refused) 0852 (Not Given - Provider: Rosa Mcfadden RN - Reason: Patient/family refused) 08 (Given - Provider: Shanel Norwood, AMAN) sennosides-docusate sodium (Leda-Colace) 8.6-50 mg per tablet 2 tablet 2 tablet, oral, 2 times daily, First dose on 12/07/24 at 2100 0915 (Not Given - Provider: Gaby Wyman RN - Reason: Patient/family refused)2036 (Not Given - Provider: Sharron Ponce RN - Reason: Patient/family refused) 0852 (Given - Provider: Rosa Mcfadden RN)2121 (Given - Provider: Carmina Corona RN) 0827 (Given - Provider: Shanel Norwood RN)2099 (Due) tiZANidine (Zanaflex) tablet 2 mg 2 mg, oral, 3 times daily, First dose on 12/07/24 at 2100 0908 (Given - Provider: Gaby Wyman RN)1431 (Given - Provider: Gaby Wyman RN)203 (Given - Provider: Sharron Ponce, AMAN) 0846 (Given - Provider: Rosa Mcfadden RN)1449 (Given - Provider: Rosa Mcfadden RN)2252 (Given - Provider: Carmina Corona, AMAN) 0827 (Given - Provider: Shanel Norwood, RN)1500 (Due)2100 (Due) varenicline tartrate (Chantix) tablet 1 mg 1 mg, oral, 2 times daily, First dose on 12/07/24 at 2100, Give with meals and with a full glass of water. 0908 (Given - Provider: Gaby Wyman RN)2036 (Given - Provider: Sharron Ponce RN) 0847 (Given - Provider: Rosa Mcfadden, AMAN)2123 (Given - Provider: Carmina Corona RN) 0827 (Given - Provider: Shanel Norwood, RN)2100 (Due) PRN Medication Order 12/17/2024 12/18/2024 12/19/2024 HYDROmorphone (Dilaudid) injection 1 mg 1 mg, intravenous, Every 2 hour PRN, pain breakthrough, Starting on 12/07/24 at 1728 0908 (Given - Provider: Gaby Wyman RN)1242 (Given - Provider: Gaby Wyman RN)2220 (Given - Provider: Sharron Ponce, AMAN - Comment: for a wound dressing change) 0449 (Given - Provider: Sharron Ponce, AMAN)0956 (Given - Provider: Rosa Mcfadden, AMAN) 1103 (Given - Provider: Shanel Norwood, RN) ondansetron (Zofran) injection 4 mg(Linked Group 1) 4 mg, intravenous, Every 8 hours PRN, nausea/vomiting, first line, Starting on 12/08/24 at 1549, Give IV if patient is unable to take orally. When administering via IV Push, administer over 3-5 minutes. 2246 (Given - Provider: Carmina Corona RN) ondansetron (Zofran) tablet 4 mg(Linked Group 1) [...] at 1727 0114 (Given - Provider: Sharron Ponce, AMAN)0433 (Given - Provider: Sharron Ponce, RN)0740 (Given - Provider: Gaby Wyman, RN)1137 (Given - Provider: Gaby Wyman, RN)1437 (Given - Provider: Gaby Wyman, RN)2036 (Given - Provider: Sharron Ponce, AMAN) 0022 (Given - Provider: Jimena Moody RN)0348 (Given - Provider: Sharron Ponce, AMAN)0847 (Given - Provider: Rosa Mcfadden, AMAN)1240 (Given - Provider: Rosa Mcfadden, RN)1608 (Given - Provider: Rosa Mcfadden, RN)1933 (Given - Provider: Rosa Mcfadden, RN)2250 (Given - Provider: Carmina Corona RN) 0136 (Given - Provider: Carmina Corona RN)0458 (Given - Provider: Carmina Corona, AMAN)0825 (Given - Provider: Shanel Norwood, AMAN)1246 (Given - Provider: Shanel Norwood, AMAN) oxygen (O2) therapy inhalation, Continuous PRN - [...] line, Starting on 12/08/24 at 1023, Give DC if patient is unable to take orally [...] line, Starting on 12/08/24 at 1023, Give DC if patient is unable to take orally or receive by injection. Scheduled Medication Order 12/22/2024 12/23/2024 12/24/2024 acetaminophen (Tylenol) tablet 1,000 mg 1,000 mg, Oral, Every 6 hours, First dose on 12/22/24 at 1400, Maximum dose of acetaminophen is 4000 mg from all sources in 24 hours. 1326 (Given - Provider: Kang Dickson RN)2001 (Given - Provider: Barry Man RN) 0238 (Given - Provider: Barry Man RN)0923 (Given - Provider: Sunni Meehan RN)1324 (Given [...] Patient/family refused) 0845 (Given - Provider: Wili López RN) gabapentin (Neurontin) capsule 300 mg 300 mg, Oral, Nightly, First dose on Mon12/23/24 at 2100 2123 (Given - Provider: Diana Wise RN) lactated ringers bolus 1,000 mL (COMPLETED) 1,000 [...] Meehan RN - Comment: Given by Alejandra Felix)1725 (Stopped - Provider: Sunni Meehan RN) methadone (Dolophine) tablet 10 mg 10 mg, Oral, Every 8 hours, First dose on Mon12/22/24 at 1300 1326 (Given - Provider: Kang Dickson, AMAN)2136 (Given - Provider: Elsy Santana RN) 0500 [...] 1 dose 1023 (Given - Provider: Wili López RN) oxyCODONE (Roxicodone) immediate release tablet 5 mg (COMPLETED) 5 mg, Oral, Once, On Mon12/24/24 at 1145, For 1 dose 1139 (Given - Provider: Wili López RN) piperacillin-tazobactam (Zosyn) IVPB 4,500 mg 4,500 mg, IntraVENous, at 200 mL/hr, Administer over 0.5 Hours, Every 6 hours, First dose on Mon12/23/24 at 0340, premix bag, Suspected Indication (Select all that apply): Pneumonia (CAP) 0417 (New Bag - Provider: Barry Man RN)0447 (Stopped - Provider: Barry Man RN)0924 (New Bag - Provider: Sunni Meehan RN)0954 (Stopped - Provider: Sunni Meehan RN)1540 (New Bag - Provider: Sunni Meehan RN)1610 (Stopped - Provider: uSnni Meehan RN)2212 (New Bag - Provider: Diana Wise RN)2242 (Stopped - Provider: Diana Wise RN) 0340 (New Bag - Provider: Diana Wise RN)0410 (Stopped - Provider: Diana Wise RN)0846 (New Bag - Provider: Wili López RN)0916 (Stopped - Provider: Wili López RN) piperacillin-tazobactam (Zosyn) IVPB 4.5 g (COMPLETED) 4.5 g, IntraVENous, at 200 mL/hr, Administer over 0.5 Hours, Once, On Mon12/22/24 at 1230, For 1 dose, premix bag, Suspected Indication (Select all that apply): Skin and Soft Tissue Infection 1244 (New Bag - Provider: Kang Dickson, AMAN)1328 (Stopped - Provider: Kang Dickson, AMAN) sodium chloride 0.9 % bolus 2,682 mL (COMPLETED) 2,682 mL (30 mL/kg 89.4 kg), IntraVENous, at 1,788 mL/hr, Administer over 1.5 Hours, Once, On Mon12/22/24 at 1230, For 1 dose 1304 (New Bag - Provider: Kang Dickson RN)1434 (Stopped - Provider: Kang Dickson RN) sodium hypochlorite (Dakin's (HALF-Strength)) 0.25 % [...] mL/hr, Administer over 120 Minutes, Once, On Mon12/22/24 at 1300, For 1 dose, For pharmacists: Verify the single weight-based dose associated with this panel assuming the provider selected an appropriate loading dose based on visual assessment of the patient. The loading dose should be verified before completing the consult premix bag, Suspected Indication (Select all that apply): Sepsis of Unknown Etiology 1604 (New Bag - Provider: Mary Mackey RN)1826 (Stopped - Provider: Dolores Muñiz RN) vancomycin [...] RN) 0611 (New Bag - Provider: Diana Wise, AMAN)0741 (Stopped - Provider: Wili López, RN) Continuous Medication Order 12/22/2024 12/23/2024 12/24/2024 lactated ringers infusion () 100 mL/hr, IntraVENous, Continuous, Starting on 12/22/24 at 1730, For 10 hours 1805 (New Bag - Provider: Kang Dickson RN)2119 (Rate/Dose Verify - Provider: Barry Man RN) 0144 (Rate/Dose Verify - Provider: Barry Man RN)0349 (Rate/Dose Verify - Provider: Barry Man RN)0405 (Stopped - Provider: Barry Man RN)0605 (Restarted - Provider: Barry Man RN)1648 (Stopped - Provider: Sunni Meehan RN) lactated ringers infusion 125 mL/hr, IntraVENous, Continuous, Starting on 12/23/24 at 0740, For 24 hours 0923 (Rate/Dose Verify - Provider: Sunni Meehan RN)1239 (Rate/Dose Change - Provider: Sunni Meehan RN)2123 (New Bag - Provider: Diana Wise RN) 0147 (Rate/Dose Verify - Provider: Diana Wise RN)0518 (New Bag - Provider: Diana Wise RN)0900 (Stopped - Provider: Wili López RN) norepinephrine (Levophed) 4 mg in 0.9% sodium chloride 250 mL infusion (Awk-Tlkvml-Qbbvt) (premix) (CANCELED) 2-50 mcg/min (7.5-187.5 mL/hr), IntraVENous, Continuous, Starting on 12/22/24 at 1605, For 24 hours, If Titrate [...] Man RN)2044 (Rate/Dose Change - Provider: Barry Man RN)2205 (Rate/Dose Change - Provider: Barry Man RN) [...] sedation for opioid reversal - MUST notify information technology administrator provider immediately after first dose, may give [...] at 1227 1603 (Given - Provider: Mary Mackey RN)2001 (Given - Provider: Barry Man RN) 0238 (Given - Provider: Barry Man RN)0652 (Given - Provider: Barry Man, AMAN)2127 (Given - Provider: Diana Wise, AMAN) 0146 [...] contact provider if no further options ordered. Care Teams (unrecognized sec tion and content) Shape Brick Molder Relationship Specialty [place] [address] [place] [address] Consulting Physician Hematology and Oncology 11/29/24 Shape Brick Molder Relationship Specialty [place] [address] [place] [address] Consulting Physician Hematology and Oncology 11/29/24 Shape Brick Molder Relationship Specialty [place] [address] [place] [address] Consulting Physician Hematology and Oncology 11/29/24 Team [...] December 04, 2024 End: December 04, 2024 Shape Brick Molder Relationship Specialty [place] [address] [place] [id number] Consulting Physician Hematology and Oncology 11/29/24 Shape Brick Molder Relationship Specialty [place] [address] [place] [address] Consulting Physician Hematology and Oncology 11/29/24 Shape Brick Molder Relationship Specialty Start Date End Date Generic Provider, No [place] [address] PCP - General Assessment Counselor 01/03/25 [place] [address] [place] [address] Consulting Physician Hematology and Oncology 11/29/24 Shape Brick Molder Relationship Specialty Start Date End Date Generic Provider, No [place] [address] PCP - General Assessment Counselor 01/03/25 [place] [address] [place] [address] Consulting Physician Hematology and Oncology 11/29/24 Shape Brick Molder Relationship Specialty Start Date End Date Generic Provider, No [place] [address] PCP - General Assessment Counselor 01/03/25 [place] [address] [place] [address] Consulting Physician Hematology and Oncology 11/29/24 Shape Brick Molder Relationship Specialty Start Date End Date Generic Provider, No [place] [address] PCP - General Assessment Counselor 01/03/25 [place] [address] [place] [address] Consulting Physician Hematology and Oncology 11/29/24 Shape Brick Molder Relationship Specialty Start Date End Date Generic Provider, No [place] [address] PCP - General Assessment Counselor 01/03/25 [place] [address] [place] [address] Consulting Physician Hematology and Oncology 11/29/24 Shape Brick Molder Relationship Specialty Start Date End Date Generic Provider, No [place] [address] PCP - General Assessment Counselor 01/03/25 [place] [address] [place] [address] Consulting Physician Hematology and Oncology 11/29/24 Shape Brick Molder Relationship Specialty Start Date End Date Generic Provider, No [place] [address] PCP - General Assessment Counselor 01/03/25 [place] [address] [place] [address] Consulting Physician Hematology and Oncology 11/29/24 Shape Brick Molder Relationship Specialty Start Date End Date Generic Provider, No [place] [address] PCP - General Assessment Counselor 01/03/25 [place] [address] [place] [address] Consulting Physician Hematology and Oncology 11/29/24 Shape Brick Molder Relationship Specialty Start Date End Date Generic Provider, No Assigned PcpMD NONE [facility] [place] [address] PCP - General Assessment Counselor 01/03/25 [place] [address] [place] [address] Consulting Physician Hematology and Oncology 11/29/24 [place] [address] [place] [address] Consulting Physician Hematology and Oncology 01/30/25 Shape Brick Molder Relationship Specialty Start Date End Date Generic Provider, No [place] [address] PCP - General Assessment Counselor 01/03/25 [place] [address] [place] [address] Consulting Physician Hematology and Oncology 11/29/24 [place] [address] [place] [address] Consulting Physician Hematology and Oncology 01/30/25 Shape Brick Molder Relationship Specialty Start Date End Date Generic Provider, [place] [address] PCP - General Assessment Counselor 01/03/25 [place] [id number] [facility] [place] [address] Consulting Physician Hematology and Oncology 11/29/24 [place] [address] [place] [address] Consulting Physician Hematology and Oncology 01/30/25 (unrecognized sect ion and content) No Status Records FoundNo Status Records FoundNo Status Records FoundNo Status Records FoundNo Status Records Found INFORMATION SOURCE (unrecogn ized section and content) DATE CREATED AUTHOR 12/21/2024 [facility] DATE CREATED AUTHOR AUTHOR'S ORGANIZ ATION 12/31/2024 [facility] DATE CREATED AUTHOR AUTHOR'S ORGANIZ ATION 03/06/2025 [facility] DATE CREATED AUTHOR AUTHOR'S ORGANIZ ATION 03/08/2025 [facility] DATE CREATED AUTHOR AUTHOR'S ORGANIZ ATION 03/11/2025 [facility] Goals (unrecognized section and content) Goals may [...] BE BASED ON THE PRIMARY CLINICAL RECORDS. [facility] [employer] [facility]. provides no warranty or guarantee of the accuracy or completeness of information in this document.
== END ==
LOC: OLS.ACW300 05:00
PROVIDERS: PCP Family Medicine; Visit Provider Family Medicine
DX: S31.829D Unspecified open wound of left buttock, subsequent encounter (principal); B45.1 Cerebral cryptococcosis; R27.9 Unspecified lack of coordination; R53.1 Weakness; Z93.3 Colostomy status
CPT/HCPCS: 36415

== ENCOUNTER → 2025-03-18 | Outpatient (REF) | payer MEDICAID, SELFPAY | END | disposition home or self-care (01) | LOC: OLS.ACW300 21:00 | PROVIDERS: PCP Family Medicine; Visit Provider Family Medicine | DX: B45.1 Cerebral cryptococcosis (principal); Z93.3 Colostomy status; S31.829D Unspecified open wound of left buttock, subsequent encounter; R27.9 Unspecified lack of coordination; R53.1 Weakness | CPT/HCPCS: 87070; 87077; 87186; 87205 ==

== ENCOUNTER → 2025-04-24 16:00 | Outpatient (REF) | payer MEDICAID, SELFPAY ==
--- OUTSIDE RECORDS SUMMARY | 2025-04-25 07:16 | XMS RPT_ITS | CCD ---
Author Organization [facility] Care Team Providers Care Tanbark Peeler Name Role Phone Unavailable Primary Care Provider Unavailbry Jiang MD, Sreedhar Yousif Unavailable Apolinar NIELSEN, Sreedhar Yousif Unavailable Julio Hare Primary Care Provider Unavail able Julio Hare Attending Provider UnavailJUVENAL Tompkins Attending Unavailable JUVENAL MATHUR Admitting Unavailable ARBEN FERNANDEZ Attending UnavailCLRAITA Hooker Admitting Unavailable PAULINO LARIOS Admitting Unavailable PAULINO LARIOS Attending Unavailable XIOMARA KAUFFMAN Attending Unavailable Generic Provider , No Assigned Pcp Primary Car e Provider Unavailable Generic Provider , No Assigned Pcp Primary Car e Provider Unavailable Tyree NIELSEN, Sakti Unavailable [phone] Generic Provider , No Assigned Pcp Primary Car e Provider Unavailable KIMBER LAST Attending Unavailable KIMBER LAST Attending Unavailable KIMBER LAST Attending Unavailable MARLON CHRISTIANSEN Attending Unavailable MARLON CHRISTIANSEN Attending Unavailable MARLON CHRISTIANSEN Attending Unavailable DEAN JALLOH Attending Unavailable GENERIC PROVIDER, NO ASSIGNED PCP Primary Care Unavailable KRIS REN Attending Unavailable XIOMARA KAUFFMAN Referring Unavailable ANKIT NINO Admitting Unavailable MICA YL Attending Unavailable GENERIC PROVIDER, NO ASSIGNED PCP Primary Care Unavailable BROOKE GILBERT S Admitting Unavailable DELGADO RENEE Consulting Unavailable FIDEL CLARKE Attending Unavailable GENERIC PROVIDER, NO ASSIGNED PCP Primary Care Unavailable BALDOMERO WILSON Admitting UnavailFER [place] Referring Unavailable HEATHER LACKEY Attending Unavailable GENERIC PROVIDER, NO ASSIGNED PCP Primary Care Unavailable SREEDHAR JIANG Attending Unavailable SUBAUSTE, GILBERT S Referring Unavailable LATRICIA SCHROEDER Referring Unavailabl e TOYA RUBIO L Admitting Unavailable MACK FRIAS Attending Unavailable GENERIC PROVIDER, NO ASSIGNED PCP Primary Care Unavailable LYNETTE SEGOVIA Referring Unavailable APOLINAR, IRIS Y Attending Unavailable APOLINAR, IRIS Y Referring Unavailable APOLINAR, IRIS Y Referring Unavailable APOLINAR, IRIS Y Referring Unavailable CURTIS MCFARLANE Admitting Unavailable CURTIS MCFARLANE Attending Unavailable WILLOW FRANCO Referring Unavailable KONG MINA Admitting Unavailable KONG MINA Attending Unavailable SYSTEM, PROVIDER NOT IN Referring Unavaila ble GENERIC PROVIDER, NO ASSIGNED PCP Primary Care Unavailable PHIL QUIJANO Referring Unavailable GENERIC PROVIDER, [...] MINA Attending Unavailable TYREE, SAKTI Referring Unavailable AL DEEK, NIDAL Admitting Unavailable AL DEEK, NIDAL Attending Unavailable GENERIC PROVIDER, NO ASSIGNED PCP Primary Care Unavailable ASTRID HAWLEY Attending Unavailable GENERIC PROVIDER, NO ASSIGNED PCP Primary Care Unavailable Julio aHre Primary Care Provider Unavail able Julio Hare Attending Provider Unavailabl e Julio Hare Attending Unavailable Julio Hare Primary Care Unavailable Julio Hare Attending Unavailable Julio Hare Primary Care Unavailable Julio Hare Attending Unavailable Julio Hare Primary Care Unavailable Julio Hare Attending Unavailable Julio Hare Primary Care Unavailable Julio Hare Attending Unavailable Julio Hare Primary Care Unavailable Julio Hare Attending Unavailable Julio Hare Primary Care Unavailable Allergies Allergy Classification Reported Allergen(s) Allergy Type Date of Onset Reaction(s) Facility (8 sources) Bananas; Translations: [BANANA] [facility] ALLERGIES NOT ON FILE; Translations: [ALLERGIES NOT ON FILE] Propensity to adverse reactions (disorder) [facility] 3 Repository Medications Current Medications Medication Drug [...] 11-10-2024 carbamide peroxide 65 mg/ml otic solution (5 sources) Start: 02-03-2025 carbamide yamilex xide (Debrox) [...] D3, (VITAMIN D3 ORAL) (1 source) take 56941 [IU] by mouth once daily cholecalciferol, vitamin D3, (VITAMIN D3 ORAL) Take 10,000 Units by mouth once daily. Active clindamycin 0.01 mg/mg topical gel (20 sources) Lincosamide Antibacterial Start: clindamycin (Cleocin T) 1 % gel Indications: [...] Active docusate sodium 50 mg / sennosides, fci 8.6 mg oral tablet (20 sources) Start: [...] ml enoxaparin sodium 100 mg/ml prefilled syringe (19 sources) Low Molecular Weight Heparin Start: 02-18-2025 [...] 12/24/2024 Active ibuprofen 600 mg oral tablet (10 sources) Nonsteroidal Anti-inflammatory Drug Start: 03-10-2025 End: [...] (Reorder) midodrine hydrochloride 10 mg oral tablet (5 sources) alpha-Adrenergic Agonist Start: 02-03-2025 take 1 [...] at 1050, +++ For RR oxyCODONE hydrochloride 20 mg oral tablet (20 sources) Opioid Agonist Start: 04-02-2025 End: 05-02-2025 take 1 tablet by mouth every four hours oxyCODONE (Roxicodone) 20 mg immediate release tablet Indications: Cancer associated pain Take 1-1.5 tablets (20-30 mg) by mouth every 4 hours if needed for severe pain (7 - 10). 270 tablet 04/02/2025 05/02/2025 Active Start: 03-10-2025 End: 03-20-2025 oxyCODONE (Roxicodone) 10 [...] pantoprazole 20 mg delayed release oral tablet (4 sources) Proton Pump Inhibitor take 1 tablet [...] times a day. As directed. Suspended Study STOP-HS1 [id number] povorcitinib 45mg or 75mg tablet (20 sources) Start: 09-30-2024 take 1 tablet by mouth once daily in the morning Study STOP-HS1 [id number] povorcitinib 45mg or 75mg tablet Indications: Clinical trial participant Take 1 tablet by mouth once daily. Preferably in the morning, with a full glass of water. 31 tablet 09/30/2024 Active Start: 08-20-2024 take 1 tablet by barbara th once daily in the morning Study STOP-HS1 [id number] povorcitinib 45mg or 75mg tablet Indications: Clinical trial participant Take 1 tablet by mouth once daily. Preferably in the morning, with a full glass of water. 62 tablet 08/20/2024 Active Start: 07-08-2024 take 1 tablet by barbara th once daily in the morning Study STOP-HS1 [id number] povorcitinib 45mg or 75mg tablet Indications: Clinical trial participant Take 1 tablet by mouth once daily. Preferably in the morning, with a full glass of water. 62 tablet 07/08/2024 Active Start: 05-27-2024 take 1 tablet by barbara th once daily in the morning Study STOP-HS1 [id number] povorcitinib 45mg or 75mg tablet Indications: Clinical trial participant Take 1 tablet by mouth once daily. Preferably in the morning, with a full glass of water. 62 tablet 05/27/2024 Active Start: 04-12-2024 take 1 tablet by barbara th once daily in the morning Study STOP-HS1 [id number] povorcitinib 45mg or 75mg tablet Indications: Clinical trial participant Take 1 tablet by mouth once daily. Preferably in the morning, with a full glass of water. 62 tablet 04/12/2024 Active Start: 04-04-2024 take 1 tablet by barbara th once daily in the morning Study STOP-HS1 [id number] povorcitinib 45mg or 75mg tablet Indications: Clinical trial participant Take 1 tablet by mouth once daily. Preferably in the morning, with a full glass of water. 31 tablet 04/04/2024 Active Start: 02-29-2024 take 1 tablet by barbara th once daily in the morning Study STOP-HS1 [id number] povorcitinib 45mg or 75mg tablet Indications: Clinical trial participant Take 1 tablet by mouth once daily. Preferably in the morning, with a full glass of water. 31 tablet 02/29/2024 Active Study STOP-HS1 [id number] povorcitinib 45mg, 75mg or placebo tablet (20 sources) Start: 02-09-2024 take 1 tablet by mouth once daily in the morning Study STOP-HS1 [id number] povorcitinib 45mg, 75mg or placebo tablet Indications: Clinical trial participant Take 1 tablet by mouth once daily. Preferably in the morning, with a full glass of water. 31 tablet 02/09/2024 Active Start: 01-16-2024 take 1 tablet by barbara th once daily in the morning Study STOP-HS1 [id number] povorcitinib 45mg, 75mg or placebo tablet Indications: Clinical trial participant Take 1 tablet by mouth once daily. Preferably in the morning, with a full glass of water. 31 tablet 01/16/2024 Active Start: 12-29-2023 take 1 tablet by barbara th once daily in the morning Study STOP-HS1 [id number] povorcitinib 45mg, 75mg or placebo tablet Indications: Clinical trial participant Take 1 tablet by mouth once daily. Preferably in the morning, with a full glass of water. 31 tablet 12/29/2023 Active Start: 12-11-2023 take 1 tablet by barbara th once daily in the morning Study STOP-HS [id number] povorcitinib 45mg, 75mg or placebo tablet Indications: Clinical trial participant Take 1 tablet by mouth once daily. Preferably in the morning, with a full glass of water. 31 tablet 12/11/2023 Active Start: 12-11-2023 take 1 tablet by barbara th once daily in the morning Study STOP-HS1 [id number] povorcitinib 45mg, 75mg or placebo tablet Indications: [...] Minutes, Every 24 hours, First dose on 09/13/24 at 2000, premix bag, Suspected Indication (Select [...] hours PRN, nausea/vomiting, first line, Starting on Mon12/08/24 at 1549, Give IV if patient is [...] line, Starting on Mon12/08/24 at 1023, Give DC if patient is [...] patient preference? Yes 20 ml albumin human, fci 250 mg/ml injection (2 sources) Human Serum [...] IntraVENous, IMG once PRN, contrast, Starting on 12/06/24 at 1246, For 1 dose Start: 11-08-2024 End: 11-08-2024 take 75 mL intravenously once as needed 75 mL, IntraVENous, IMG once PRN, contrast, Starting on 11/08/24 at 1643, For 1 dose Start: 09-12-2024 [...] 11-10-2024 methadone hydrochloride 5 mg oral tablet (13 sources) Opioid Agonist Start: 02-17-2025 End: 03-10-2025 [...] in 0.9% sodium chloride 250 mL infusion ([id number]) (premix) (2 sources) Start: 12-22-2024 End: 12-23-2024 [...] Hours, Every 6 hours, First dose on 12/23/24 at 0340, premix bag, Suspected Indication (Select [...] hours, First dose (after last modification) on Mon12/07/24 at 1300, Dosage or interval has been [...] and Soft Tissue Infection polyethylene glycol 3350 32869 mg powder for oral solution (20 sources) [...] hour 100 mL/hr, IntraVENous, Continuous, Starting on 12/23/24 at 0945, For 24 hours Start: 12-22-2024 [...] hours, First dose on 11/09/24 at 0500, ADD-Chicken bag, Suspected Indication (Select all that apply): [...] Classification Problem Date Documented Da te Episodic/Chronic Administrative/social admission (7 sources) Patient encounter status; Translations: [Other specified counseling] Onset: 5 09-24-2024 Episodic Bacterial infection; unspecified site (20 sources) Bacteremia caused by Gram-positive bacteria; Translations: [Bacteremia] Onset: 5 10-21-2024 Episodic Cancer; other and unspecified primary (1 source) Malignant tumor of lower limb 03-03-2025 Chronic Chronic kidney disease (20 sources) Chronic renal insufficiency; Translations: [Chronic kidney disease, unspecified] Onset: 5 10-15-2024 Chronic Deficiency and other anemia (5 sources) Anemia; Translations: [Anemia, unspecified] Onset: 5 02-04-2025 Episodic Diseases of white blood cells (1 source) Elevated white blood cell count, unspecified; Translations: [Elevated white blood cell count, unspecified] Onset: Chronic Esophageal disorders (3 sources) Gastroesophageal reflux disease without esophagitis; Translations: [Gastro-esophageal reflux disease without esophagitis] Onset: 5 12-19-2024 Chronic Maintenance chemotherapy; radiotherapy (7 sources) Patient encounter status; Translations: [Encounter for antineoplastic radiation therapy] Onset: 5 01-09-2025 Chronic Malaise and fatigue (2 sources) Weakness; Translations: [Weakness] Onset: Episodic Malignant neoplasm without specification of site (3 sources) Squamous cell carcinoma 11-27-2024 Chronic Meningitis (except that caused by tuberculosis or sexually transmitted disease) (2 sources) Cerebral cryptococcosis; 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] Onset: 5 Episodic Neoplasms of unspecified nature or uncertain behavior (4 sources) Monoclonal gammopathy of uncertain significance; Translations: [Monoclonal gammopathy] Onset: 5 11-29-2024 Chronic Open wounds of extremities (8 sources) Injury of thigh; Translations: [Unspecified open wound, unspecified thigh, initial encounter] Onset: 5 03-03-2025 Episodic Open wounds of head; neck; and trunk (11 sources) Injury of buttock; Translations: [Unspecified open wound of left buttock, initial encounter] Onset: 4 09-12-2024 Episodic Other aftercare (1 source) Drug therapy finding; Translations: [Other detention (current) drug therapy] 11-27-2024 Episodic Other aftercare (1 source) Long-term current use of drug therapy; Translations: [Encounter for therapeutic drug level monitoring] 03-10-2025 Episodic Other aftercare (2 sources) Encounter for therapeutic drug level monitoring; Translations: [Encounter for therapeutic drug level monitoring] Onset: Episodic Other aftercare (2 sources) [facility] (current) use of opiate analgesic; Translations: [[facility] (current) use of opiate analgesic] Onset: 5 Episodic Other connective tissue disease (1 source) Pain in left lower limb; Translations: [Pain in left leg] 10-20-2024 Episodic Other gastrointestinal disorders (1 source) Colostomy status; Translations: [Colostomy status] Onset: 5 Chronic Other gastrointestinal disorders (3 sources) Constipation; Translations: [Constipation, unspecified] 09-17-2024 Episodic Other gastrointestinal disorders (4 sources) Drug-induced constipation; Translations: [Drug induced constipation] 11-27-2024 Episodic Other nervous system disorders (7 sources) Pain due to neoplastic disease; Translations: [...] disorders (1 source) Hypercalcemia; Translations: [Hypercalcemia] Onset: Chronic Other skin disorders (1 source) Skin lesion; Translations: [Disorder of the skin and subcutaneous tissue, unspecified] 11-15-2024 Episodic Other skin disorders (3 sources) Hidradenitis suppurativa; Translations: [Hidradenitis suppurativa] Onset: Episodic Other upper respiratory disease (1 source) Rhinitis; Translations: [Chronic rhinitis] 12-19-2024 Chronic Other upper respiratory disease (2 sources) Chronic rhinitis; Translations: [Chronic rhinitis] Onset: Chronic Residual codes; unclassified (3 sources) Insomnia; Translations: [Other insomnia] Onset: 5 [...] (1 source) Patient encounter status 09-24-2024 Unclassified (1 source) Autogenerated Problem Onset: 5 03-24-2025 Unclassified (2 sources) OTV; Translations: [OTV] Onset: 5 Unclassified (2 sources) WOUND INFECTION\\HYPOTENSIVE Onset: 5 Past or Other Problems Problem Classification Problem Date Documented Da te Episodic/Chronic Acute and unspecified renal failure (1 source) Acute kidney failure, unspecified; Translations: [Acute kidney failure, unspecified] Onset: 01-11-2025 Episodic Deficiency and other anemia (1 source) Iron deficiency anemia, unspecified; Translations: [Iron deficiency anemia, unspecified] Onset: 01-11-2025 Episodic E Codes: Adverse effects of medical drugs (2 sources) Adverse effect of other opioids, initial encounter; Translations: [Adverse effect of other opioids, initial encounter] Onset: 11-10-2024 Episodic Nausea and vomiting (5 sources) Nausea; Translations: [Nausea] Onset: 09-13-2024 09-17-2024 Episodic Nutritional deficiencies (3 sources) Vitamin deficiency; Translations: [Vitamin deficiency, unspecified] Onset: 11-10-2024 11-27-2024 Episodic Other aftercare (2 sources) Other detention (current) drug therapy; Translations: [Other search director (current) drug therapy] Onset: 11-10-2024 Episodic Other [...] Test Name Value Interpretation Reference Range Facility Gram stainOrdered By: Julio Nolasco on 03-18-2025 Microscopic observation Gram stain Nom (Unsp spec) [facility] Routine wound cultureOrdered By: Julio Nolasco on 03-18-2025 Microbial culture, routine Morganella morganii sp morgani Abnormal [facility] Anion gap in Serum or Plasma Ordered By: Julio Nolasco on 02-20-2025 Anion gap [Moles/Vol] 13 mmol/L 5-15 [facility] BUN/creatinine ratioOrdered By: Julio Nolasco on 02-20-2025 Urea nitrogen/Creatinine [Mass ratio] 11.2 mg/mg - [facility] Bilirubin, totalOrdered By: Julio Nolasco on 02-20-2025 Bilirubin [Mass/Vol] 0.25 mg/dL 0.00-1.30 [facility] Calculated very low density lipoprotein (VLDL) cholesterol measurementOrdered By: Julio Nolasco on 02-20-2025 Calculated very low density lipoprotein (VLDL) cholesterol measurement 60 mg/dL High 5-40 [facility] Carbon dioxide, total [Moles /volume] in Central venous bloodOrdered By: Julio Nolasco on 02-20-2025 CO2 [Moles/Vol] 22.1 mmol/L 21.0-32.0 [facility] Chloride assayOrdered By: Antwon Nolasco on 02-20-2025 Chloride [Moles/Vol] 103 mmol/L 98-108 [facility] Erythrocyte distribution wid th ratioOrdered By: Julio Nolasco on 02-20-2025 Erythrocyte distribution width (RBC) [Ratio] 19.9 % High 11.6-14.6 [facility] Erythrocyte distribution wid th standard deviationOrdered By: Julio Nolasco on 02-20-2025 Erythrocyte distribution width (RBC) [Ratio] 57.8 fl High 35.1-43.9 [facility] Glomerular filtration rate ( GFR) estimation/1.73 sq m using serum, plasma, or whole bOrdered By: Julio Nolasco on 02-20-2025 GFR/1.73 sq M.predicted among non-blacks MDRD (S/P/Bld) [Vol rate/Area] 62 mL/min/{1.73_m2} >60 [facility] Comment on above: mL/min/1.73m2 CKD-EP I Creatinine Equation (2020) Hematocrit Auto (Bld) [Volum e fraction]Ordered By: Julio Nolasco on 02-20-2025 Hematocrit (Bld) [Volume fraction] 25.1 % Low 40-54 [facility] Hemoglobin measurementOrdere d By: Julio Nolasco on 02-20-2025 Hemoglobin (Bld) [Mass/Vol] 7.7 g/dL Low 13.0-16.5 [facility] LDL calc ser/plasOrdered By: Julio Nolasco on 02-20-2025 Cholesterol in LDL [Mass/Vol] 94 mg/dL [facility] Comment on above: Hrtivxutng=989-128 m g/dL & Higher Najq=163 mg/dL or greater Laboratory - Chemistry and C hemistry - challengeOrdered By: Julio Nolasco on 02-20-2025 AST [Catalytic activity/Vol] 17 U/L <38 [facility] MCV (mean corpuscular volume ) determinationOrdered By: Julio Nolsaco on 02-20-2025 MCV (RBC) [Entitic vol] 79.2 fL Low 80-94 [facility] Magnesium measurement (mass/ volume)Ordered By: Julio Nolasco on 02-20-2025 Magnesium (Unsp spec) [Mass/Vol] 2.1 mg/dL 1.5-2.2 [facility] Mean corpuscular hemoglobin (MCH) determinationOrdered By: Julio Nolasco on 02-20-2025 MCH (RBC) [Entitic mass] 24.3 pg Low 27.0-32.0 [facility] Mean corpuscular hemoglobin concentration (MCHC) determinationOrdered By: Julio Nolasco on 02-20-2025 MCHC (RBC) [Mass/Vol] 30.7 g/dL Low 32-36 [facility] Mean platelet volume determi nationOrdered By: Julio Nolasco on 02-20-2025 Platelet mean volume (Bld) [Entitic vol] 9.4 fL 6.2-12.0 [facility] Platelet countOrdered By: Antwon Nolasco on 02-20-2025 Platelets (Bld) [#/Vol] 880 10*3/uL High 150-450 [facility] Comment on above: CRITICAL VALUE DAVALOS D TO GRIS FIGUEROA02/20/25 0928 Ainsley Lara.RESULTS READ BACK BY SAME. Potassium measurement (mass/ volume)Ordered By: Julio Nolasco on 02-20-2025 Potassium (Unsp spec) [Mass/Vol] 4.7 mmol/L 3.3-5.1 [facility] RBC Auto (Bld) [#/Vol]Ordere d By: Julio Nolasco on 02-20-2025 RBC (Bld) [#/Vol] 3.17 10*6/uL Low 4.6-6.2 [facility] Screening total cholesterol/ high density lipoprotein (HDL) cholesterol ratioOrdered By: Julio Nolasco on 02-20-2025 Cholesterol.total/Choles terol in HDL [Mass ratio] 9.77 {ratio} [facility] Serum creatinine measurement (mass/volume)Ordered By: Julio Nolasco on 02-20-2025 Creatinine [Mass/Vol] 1.38 mg/dL High 0.70-1.20 [facility] Serum globulin measurementOr dered By: Julio Nolasco on 02-20-2025 Globulin (S) [Mass/Vol] 4.9 g/dL High 2.2-4.2 [facility] Serum glucose measurement (m ass/volume)Ordered By: Julio Nolasco on 02-20-2025 Glucose [Mass/Vol] 99 mg/dL 70-99 [facility] Serum or plasma alanine mora otransferase (ALT) measurementOrdered By: Julio Nolasco on 02-20-2025 ALT [Catalytic activity/Vol] 18 U/L <47 [facility] Serum or plasma albumin mervat urement (mass/volume)Ordered By: Julio Nolasco on 02-20-2025 Albumin [Mass/Vol] 2.9 g/dL Low 3.5-5.0 [facility] Serum or plasma albumin/glob ulin mass ratioOrdered By: Julio Nolasco on 02-20-2025 Albumin/Globulin [Mass ratio] 0.6 {ratio} Low 0.9-2.4 [facility] Serum or plasma alkaline cata sphatase measurementOrdered By: Julio Nolasco on 02-20-2025 ALP [Catalytic activity/Vol] 172 U/L High 40-129 [facility] Serum or plasma calcium mervat urement (mass/volume)Ordered By: Julio Nolasco on 02-20-2025 Calcium [Mass/Vol] 8.9 mg/dL 7.6-11.0 [facility] Serum or plasma cholesterol in HDL measurement (mass/volume)Ordered By: Julio Nolasco on 02-20-2025 Cholesterol in HDL [Mass/Vol] 18 mg/dL Low >40 [facility] Comment on above: National Cholesterol Education Program (NCEP) guidelines:<40 mg/dL: Low HDL-cholesterol (major risk factor for CHD)>= 60 mg/dL: High HDL-cholesterol (negative risk factor for CHD)HDL-cholesterol is affected by a number of factors, e.g. smoking, exercise, hormones, sex and age. Serum or plasma cholesterol measurement (mass/volume)Ordered By: Julio Nolasco on 02-20-2025 Cholesterol [Mass/Vol] 172 mg/dL <201 [facility] Comment on above: Cholesterol level, D esirable <200 mg/dLBorderline high cholesterol 200-239 mg/dLHigh cholesterol >=240 mg/dLRecommendations of the NCEP Adult Treatment Panel for the following risk-cutoff thresholds for the [place] population. Serum or plasma urea nitroge n measurement (mass/volume)Ordered By: Julio Nolasco on 02-20-2025 Urea nitrogen [Mass/Vol] 16 mg/dL 4-19 [facility] Sodium levelOrdered By: William Nolasco on 02-20-2025 Sodium [Moles/Vol] 138 mmol/L 133-145 [facility] TSH DL <= 0.005 mIU/L QnOrde red By: Julio Nolasco on 02-20-2025 TSH Qn 5.140 uIU/mL High 0.300-4.200 [facility] Total proteinOrdered By: Adolfo Nolasco on 02-20-2025 Protein [Mass/Vol] 7.8 g/dL 5.9-8.4 [facility] Triglycerides measurementOrd ered By: Julio Nolasco on 02-20-2025 Triglyceride [Mass/Vol] 300 mg/dL High <199 [facility] Comment on above: The drugs N-Acetylcy steine and Metamizole may falsely depress this assay. Normal range: <150 mg/dLBorderline High: 150-199 mg/dLHigh: 200-499 mg/dLVery High: >500 mg/dL White blood cell (WBC) count Ordered By: Julio Nolasco on 02-20-2025 WBC (Bld) [#/Vol] 10.7 10*3/uL 4.4-11.0 [facility] Anion gap in Serum or Plasma Ordered By: Julio Nolasco on 02-18-2025 Anion gap [Moles/Vol] 14 mmol/L 5-15 [facility] BUN/creatinine ratioOrdered By: Julio Nolasco on 02-18-2025 Urea nitrogen/Creatinine [Mass ratio] 13.2 mg/mg 10-20 [facility] Bilirubin, totalOrdered By: Julio Nolasco on 02-18-2025 Bilirubin [Mass/Vol] 0.30 mg/dL 0.00-1.30 [facility] Blood manual differential co mment interpretation (narrative result)Ordered By: Julio Nolasco on 02-18-2025 Manual differential comment Florencio (Bld) [Interp] SCANNED [facility] Comment on above: MARKED THROMBOCYTOSI S Calculated very low density lipoprotein (VLDL) cholesterol measurementOrdered By: Julio Nolasco on 02-18-2025 Calculated very low density lipoprotein (VLDL) cholesterol measurement 55 mg/dL High 5-40 [facility] Carbon dioxide, total [Moles /volume] in Central venous bloodOrdered By: Julio Nolasco on 02-18-2025 CO2 [Moles/Vol] 21.5 mmol/L 21.0-32.0 [facility] Chloride assayOrdered By: Antwon Nolasco on 02-18-2025 Chloride [Moles/Vol] 101 mmol/L 98-108 [facility] Erythrocyte distribution wid th ratioOrdered By: Julio Nolasco on 02-18-2025 Erythrocyte distribution width (RBC) [Ratio] 19.9 % High 11.6-14.6 [facility] [facility] Erythrocyte distribution wid th standard deviationOrdered By: Julio Nolasco on 02-18-2025 Erythrocyte distribution width (RBC) [Ratio] 56.9 fl High 35.1-43.9 [facility] Glomerular filtration rate ( GFR) estimation/1.73 sq m using serum, plasma, or whole bOrdered By: Julio Nolasco on 02-18-2025 GFR/1.73 sq M.predicted among non-blacks MDRD (S/P/Bld) [Vol rate/Area] 74 mL/min/{1.73_m2} >60 [facility] Comment on above: mL/min/1.73m2 CKD-EP I Creatinine Equation (2020) Hematocrit Auto (Bld) [Volum e fraction]Ordered By: Julio Nolasco on 02-18-2025 Hematocrit (Bld) [Volume fraction] 23.8 % Low 40-54 [facility] Hemoglobin A1c percentageOrd ered By: Julio Nolasco on 02-18-2025 HbA1c (Bld) [Mass fraction] 6.3 % High <5.7 [facility] Comment on above: Normal < 5.7 % Predi abetic 5.7 - 6.4 % Diabetic >or= 6.5 % Please note range changes. Hemoglobin measurementOrdere d By: Julio Nolasco on 02-18-2025 Hemoglobin (Bld) [Mass/Vol] 7.4 g/dL Low 13.0-16.5 [facility] LDL calc ser/plasOrdered By: Julio Nolasco on 02-18-2025 Cholesterol in LDL [Mass/Vol] 83 mg/dL [facility] Comment on above: Hipbvtdrwz=665-488 m g/dL & Higher Ovfi=646 mg/dL or greater Laboratory - Chemistry and C hemistry - challengeOrdered By: Julio Nolasco on 02-18-2025 AST [Catalytic activity/Vol] 18 U/L <38 [facility] MCV (mean corpuscular volume ) determinationOrdered By: Julio Nolasco on 02-18-2025 MCV (RBC) [Entitic vol] 79.1 fL Low 80-94 [facility] Magnesium measurement (mass/ volume)Ordered By: Julio Nolasco on 02-18-2025 Magnesium (Unsp spec) [Mass/Vol] 2.0 mg/dL 1.5-2.2 [facility] Mean corpuscular hemoglobin (MCH) determinationOrdered By: Julio Nolasco on 02-18-2025 MCH (RBC) [Entitic mass] 24.6 pg Low 27.0-32.0 [facility] Mean corpuscular hemoglobin concentration (MCHC) determinationOrdered By: Julio Nolasco on 02-18-2025 MCHC (RBC) [Mass/Vol] 31.1 g/dL Low 32-36 [facility] Mean platelet volume determi nationOrdered By: Julio Nolasco on 02-18-2025 Platelet mean volume (Bld) [Entitic vol] 9.5 fL 6.2-12.0 [facility] Platelet countOrdered By: Antwon Nolasco on 02-18-2025 Platelets (Bld) [#/Vol] 874 10*3/uL High 150-450 [facility] Potassium measurement (mass/ volume)Ordered By: Julio Nolasco on 02-18-2025 Potassium (Unsp spec) [Mass/Vol] 4.3 mmol/L 3.3-5.1 [facility] RBC Auto (Bld) [#/Vol]Ordere d By: Julio Nolasco on 02-18-2025 RBC (Bld) [#/Vol] 3.01 10*6/uL Low 4.6-6.2 [facility] Review by pathologistOrdered By: Julio Nolasco on 02-18-2025 Pathologist review Florencio (Unsp spec) [Interp] Reviewed [facility] Comment on above: Previous reported re sult: Laina galeana Edited by: LEANNE on 02/28/25:1554SEE REPORT IN PATIENT'S EMR AMENDED REPORT 02/28/25 1554 PATH REV previously reported as: Laina galeana Screening total cholesterol/ high density lipoprotein (HDL) cholesterol ratioOrdered By: Julio Nolasco on 02-18-2025 Cholesterol.total/Choles terol in HDL [Mass ratio] 9.57 {ratio} [facility] Serum creatinine measurement (mass/volume)Ordered By: Julio Nolasco on 02-18-2025 Creatinine [Mass/Vol] 1.19 mg/dL 0.70-1.20 [facility] Serum globulin measurementOr dered By: Julio Nolasco on 02-18-2025 Globulin (S) [Mass/Vol] 4.6 g/dL High 2.2-4.2 [facility] Serum glucose measurement (m ass/volume)Ordered By: Julio Nolasco on 02-18-2025 Glucose [Mass/Vol] 92 mg/dL 70-99 [facility] Serum or plasma alanine mora otransferase (ALT) measurementOrdered By: Julio Nolasco on 02-18-2025 ALT [Catalytic activity/Vol] 24 U/L <47 [facility] Serum or plasma albumin mervat urement (mass/volume)Ordered By: Julio Nolasco on 02-18-2025 Albumin [Mass/Vol] 3.0 g/dL Low 3.5-5.0 [facility] Serum or plasma albumin/glob ulin mass ratioOrdered By: Julio Nolasco on 02-18-2025 Albumin/Globulin [Mass ratio] 0.6 {ratio} Low 0.9-2.4 [facility] Serum or plasma alkaline cata sphatase measurementOrdered By: Julio Nolasco on 02-18-2025 ALP [Catalytic activity/Vol] 195 U/L High 40-129 [facility] Serum or plasma calcium mervat urement (mass/volume)Ordered By: Julio Nolasco on 02-18-2025 Calcium [Mass/Vol] 8.9 mg/dL 7.6-11.0 [facility] Serum or plasma cholesterol in HDL measurement (mass/volume)Ordered By: Julio Nolasco on 02-18-2025 Cholesterol in HDL [Mass/Vol] 16 mg/dL Low >40 [facility] Comment on above: National Cholesterol Education Program (NCEP) guidelines:<40 mg/dL: Low HDL-cholesterol (major risk factor for CHD)>= 60 mg/dL: High HDL-cholesterol (negative risk factor for CHD)HDL-cholesterol is affected by a number of factors, e.g. smoking, exercise, hormones, sex and age. Serum or plasma cholesterol measurement (mass/volume)Ordered By: Julio Nolasco on 02-18-2025 Cholesterol [Mass/Vol] 154 mg/dL <201 [facility] Comment on above: Cholesterol level, D esirable <200 mg/dLBorderline high cholesterol 200-239 mg/dLHigh cholesterol >=240 mg/dLRecommendations of the NCEP Adult Treatment Panel for the following risk-cutoff thresholds for the [place] population. Serum or plasma urea nitroge n measurement (mass/volume)Ordered By: Julio Nolasco on 02-18-2025 Urea nitrogen [Mass/Vol] 16 mg/dL 4-19 [facility] Sodium levelOrdered By: William Nolasco on 02-18-2025 Sodium [Moles/Vol] 136 mmol/L 133-145 [facility] TSH DL <= 0.005 mIU/L QnOrde red By: Julio Nolasco on 02-18-2025 TSH Qn 4.010 uIU/mL 0.300-4.200 [facility] Total proteinOrdered By: Adolfo Nolasco on 02-18-2025 Protein [Mass/Vol] 7.6 g/dL 5.9-8.4 [facility] Triglycerides measurementOrd ered By: Julio Nolasco on 02-18-2025 Triglyceride [Mass/Vol] 275 mg/dL High <199 [facility] Comment on above: The drugs N-Acetylcy steine and Metamizole may falsely depress this assay. Normal range: <150 mg/dLBorderline High: 150-199 mg/dLHigh: 200-499 mg/dLVery High: >500 mg/dL White blood cell (WBC) count Ordered By: Julio Nolasco on 02-18-2025 WBC (Bld) [#/Vol] 11.2 10*3/uL High 4.4-11.0 [facility] CBC panel Auto (Bld)on 02-17 Erythrocyte distribution width (RBC) [Ratio] 19.9 % High 11.5-14.5 [facility] Comment on above: Performed By: #### 5 8410-2 ####BHANU Treviño ([id number])[facility] ([facility])[address] [place] [address] Hematocrit (Bld) [Volume fraction] 23.6 % Low 41.0-52.0 [facility] Comment on above: Performed By: #### 5 8410-2 ####BHANU Treviño ([id number])[facility] ([facility])[address] [place] [address] Hemoglobin (Bld) [Mass/Vol] 7.4 g/dL Low 13.5-17.5 [facility] Comment on above: Performed By: #### 5 8410-2 ####BHANU Treviño ([id number])[facility] ([facility])[address] [place] [address] MCH (RBC) [Entitic mass] 24.7 pg Low 26.0-34.0 [facility] Comment on above: Performed By: #### 5 8410-2 ####BHANU Treviño ([id number])[facility] ([facility])[address] [place] [address] MCHC (RBC) [Mass/Vol] 31.4 g/dL Low 32.0-36.0 [facility] Comment on above: Performed By: #### 5 8410-2 ####BHANU Treviño ([id number])[facility] ([facility])[address] [place] [address] MCV (RBC) [Entitic vol] 79 fL Low 80-100 [facility] Comment on above: Performed By: #### 5 8410-2 ####BHANU Treviño ([id number])[facility] ([facility])[address] [place] [address] Nucleated RBC/100 WBC (Bld) [Ratio] 0.0 /100 WBCs Normal 0.0-0.0 [facility] Comment on above: Performed By: #### 5 8410-2 ####BHANU Treviño ([id number])[facility] ([facility])[address] [place] [address] Platelets (Bld) [#/Vol] 819 x10*3/uL High 150-450 [facility] Comment on above: Performed By: #### 5 8410-2 ####BHANU Treviño ([id number])[facility] ([facility])[address] [place] [address] RBC (Bld) [#/Vol] 2.99 x10*6/uL Low 4.50-5.90 [facility] Comment on above: Performed By: #### 5 8410-2 ####BHANU Treviño ([id number])[facility] ([facility])[address] [place] [address] WBC (Bld) [#/Vol] 12.6 x10*3/uL High 4.4-11.3 [facility] Comment on above: Performed By: #### 5 8410-2 ####BHANU Treviño ([id number])[facility] ([facility])[address] [place] [address] Comprehensive metabolic 2000 panelon 02-17-2025 Albumin BCP dye [Mass/Vol] 2.8 g/dL Low 3.4-5.0 [facility] Comment on above: Performed By: #### 2 4323-8 ####BHANU Treviño ([id number])[facility] ([facility])[address] [place] [address] ALP [Catalytic activity/Vol] 173 U/L High 33-120 [facility] Comment on above: Performed By: #### 2 4323-8 ####BHANU Treviño ([id number])[facility] ([facility])[address] [place] [address] ALT With P-5'-P [Catalytic activity/Vol] 26 U/L Normal 10-52 [facility] Comment on above: Result Comment: Sydni ents treated with Sulfasalazine may generate falsely decreased results for ALT. Performed By: #### 2 4323-8 ####BHANU Treviño ([id number])[facility] ([facility])[address] [place] [address] Anion gap [Moles/Vol] 15 mmol/L Normal 10-20 [facility] Comment on above: Performed By: #### 2 4323-8 ####BHANU Treviño ([id number])[facility] ([facility])[address] [place] [address] AST With P-5'-P [Catalytic activity/Vol] 14 U/L Normal 9-39 [facility] Comment on above: Performed By: #### 2 4323-8 ####BHANU Treviño ([id number])[facility] ([facility])[address] [place] [address] Bilirubin [Mass/Vol] 0.3 mg/dL Normal 0.0-1.2 [facility] Comment on above: Performed By: #### 2 4323-8 ####BHANU Treviño ([id number])[facility] ([facility])[address] [place] [address] Calcium [Mass/Vol] 8.4 mg/dL Low 8.6-10.6 [facility] Comment on above: Performed By: #### 2 4323-8 ####BHANU Treviño ([id number])[facility] ([facility])[address] [place] [address] Chloride [Moles/Vol] 101 mmol/L Normal 98-107 [facility] Comment on above: Performed By: #### 2 4323-8 ####BHANU GREGORY L ([id number])[facility] ([facility])[address] [facility] [place] [address] CO2 [Moles/Vol] 27 mmol/L Normal 21-32 [facility] Comment on above: Performed By: #### 2 4323-8 ####BHANU GREGORY L ([id number])[facility] ([facility])[address] [place] [address] Creatinine [Mass/Vol] 1.23 mg/dL Normal 0.50-1.30 [facility] Comment on above: Performed By: #### 2 4323-8 ####BHANU Treviño ([id number])[facility] ([facility])[address] [place] [address] Glomerular filtration rate/1.73 sq M.predicted 71 mL/min/1.73m*2 Normal >60 [facility] Comment on above: Result Comment: Calc ulations of estimated GFR are performed using the 2020 CKD-EPI Study Refit equation without the race variable for the IDMS-Traceable creatinine methods.https://jasn.asnjournals.org/content/ /ASN.2513179355 Performed By: #### 2 4323-8 ####BHANU GREGORY L ([id number])[facility] ([facility])[address] [place] [address] Glucose [Mass/Vol] 88 mg/dL Normal 74-99 [facility] Comment on above: Performed By: #### 2 4323-8 ####BHANU GREGORY L ([id number])[facility] ([facility])[address] [place] [address] Potassium [Moles/Vol] 5.1 mmol/L Normal 3.5-5.3 [facility] Comment on above: Performed By: #### 2 4323-8 ####BHANU Treviño ([id number])[facility] ([facility])[address] [place] [address] Protein [Mass/Vol] 6.7 g/dL Normal 6.4-8.2 [facility] Comment on above: Performed By: #### 2 4323-8 ####BHANU Treviño ([id number])[facility] ([facility])[address] [place] [address] Sodium [Moles/Vol] 138 mmol/L Normal 136-145 [facility] Comment on above: Performed By: #### 2 4323-8 ####BHANU Treviño ([id number])[facility] ([facility])[address] [place] [address] Urea nitrogen [Mass/Vol] 16 mg/dL Normal 6-23 [facility] Comment on above: Performed By: #### 2 4323-8 ####BHANU Treviño ([id number])[facility] ([facility])[address] [place] [address] Magnesiumon 02-17-2025 Magnesium [Mass/Vol] 2.01 mg/dL Normal 1.60-2.40 [facility] Comment on above: Performed By: #### 1 9123-9 ####BHANU Treviño ([id number])[facility] ([facility])[address] [place] [address] CBC panel Auto (Bld)on 02-16 Erythrocyte distribution width (RBC) [Ratio] 19.7 % High 11.5-14.5 [facility] Comment on above: Performed By: #### 5 8410-2 ####BHANU Treviño ([id number])[facility] ([facility])[address] [place] [address] Hematocrit (Bld) [Volume fraction] 22.1 % Low 41.0-52.0 [facility] Comment on above: Performed By: #### 5 8410-2 ####BHANU Treviño ([id number])[facility] ([facility])[address] [place] [address] Hemoglobin (Bld) [Mass/Vol] 7.1 g/dL Low 13.5-17.5 [facility] Comment on above: Performed By: #### 5 8410-2 ####BHANU Treviño ([id number])[facility] ([facility])[address] [place] [address] MCH (RBC) [Entitic mass] 24.8 pg Low 26.0-34.0 [facility] Comment on above: Performed By: #### 5 8410-2 ####BHANU Treviño (48108)[facility] ([facility])[address] [place] [address] MCHC (RBC) [Mass/Vol] 32.1 g/dL Normal 32.0-36.0 [facility] Comment on above: Performed By: #### 5 8410-2 ####BHANU Treviño ([id number])[facility] ([facility])[address] [place] [address] MCV (RBC) [Entitic vol] 77 fL Low 80-100 U [facility] Comment on above: Performed By: #### 5 8410-2 ####BHANU Treviño ([id number])[facility] ([facility])[address] [place] [address] Nucleated RBC/100 WBC (Bld) [Ratio] 0.0 /100 WBCs Normal 0.0-0.0 [facility] Comment on above: Performed By: #### 5 8410-2 ####BHANU Treviño (97311)[facility] ([facility])[address] [place] [address] Platelets (Bld) [#/Vol] 758 x10*3/uL High 150-450 [facility] Comment on above: Performed By: #### 5 8410-2 ####BHANU Treviño ([id number])[facility] ([facility])[address] [place] [address] RBC (Bld) [#/Vol] 2.86 x10*6/uL Low 4.50-5.90 [facility] Comment on above: Performed By: #### 5 8410-2 ####BHANU Treviño ([id number])[facility] ([facility])[address] [place] [address] WBC (Bld) [#/Vol] 14.1 x10*3/uL High 4.4-11.3 [facility] Comment on above: Performed By: #### 5 8410-2 ####BHANU Treviño ([id number])[facility] ([facility])[address] [place] [address] Comprehensive metabolic 2000 panelon 02-16-2025 Albumin BCP dye [Mass/Vol] 2.9 g/dL Low 3.4-5.0 [facility] Comment on above: Performed By: #### 2 4323-8 ####BHANU Treviño ([id number])[facility] ([facility])[address] [place] [address] ALP [Catalytic activity/Vol] 157 U/L High 33-120 [facility] Comment on above: Performed By: #### 2 4323-8 ####BHANU Treviño ([id number])[facility] ([facility])[address] [place] [address] ALT With P-5'-P [Catalytic activity/Vol] 30 U/L Normal 10-52 [facility] Comment on above: Result Comment: Sydni ents treated with Sulfasalazine may generate falsely decreased results for ALT. Performed By: #### 2 4323-8 ####BHANU Treviño ([id number])[facility] ([facility])[address] [place] [address] Anion gap [Moles/Vol] 13 mmol/L Normal 10-20 [facility] Comment on above: Performed By: #### 2 4323-8 ####BHANU Treviño ([id number])[facility] ([facility])[address] [facility] [place] [address] AST With P-5'-P [Catalytic activity/Vol] 16 U/L Normal 9-39 [facility] Comment on above: Performed By: #### 2 4323-8 ####BHANU Treviño ([id number])[facility] ([facility])[address] [facility] [place] [address] Bilirubin [Mass/Vol] 0.3 mg/dL Normal 0.0-1.2 [facility] Comment on above: Performed By: #### 2 432-8 ####BHANU Treviño ([id number])[facility] ([facility])[address] [place] [address] Calcium [Mass/Vol] 8.8 mg/dL Normal 8.6-10.6 [facility] Comment on above: Performed By: #### 2 4323-8 ####BHANU Treviño ([id number])[facility] ([facility])[address] [place] [address] Chloride [Moles/Vol] 100 mmol/L Normal 98-107 [facility] Comment on above: Performed By: #### 2 4323-8 ####BHANU GREGORY L ([id number])[facility] ([facility])[address] [place] [address] CO2 [Moles/Vol] 28 mmol/L Normal 21-32 [facility] Comment on above: Performed By: #### 2 4323-8 ####BHANU GREGORY L (81443)[facility] ([facility])[address]658 [place] [address] Creatinine [Mass/Vol] 1.18 mg/dL Normal 0.50-1.30 [facility] Comment on above: Performed By: #### 2 4323-8 ####BHANU GREGORY L ([id number])[facility] ([facility])[address] [facility] [place] [address] Glomerular filtration rate/1.73 sq M.predicted 75 mL/min/1.73m*2 Normal >60 [facility] Comment on above: Result Comment: Calc ulations of estimated GFR are performed using the 2020 CKD-EPI Study Refit equation without the race variable for the IDMS-Traceable creatinine methods.https://jasn.asnjournals.org/content/ /ASN.2811805091 Performed By: #### 2 4323-8 ####BHANU Treviño ([id number])[facility] ([facility])[address] [place] [address] Glucose [Mass/Vol] 91 mg/dL Normal 74-99 [facility] Comment on above: Performed By: #### 2 4323-8 ####BHAUN Trevioñ (84079)[facility] ([facility])[address] [place] [address] Potassium [Moles/Vol] 4.3 mmol/L Normal 3.5-5.3 [facility] Comment on above: Performed By: #### 2 4323-8 ####BHANU GREGORY L (54932)[facility] ([facility])[address] [place] [address] Protein [Mass/Vol] 7.3 g/dL Normal 6.4-8.2 [facility] Comment on above: Performed By: #### 2 4323-8 ####BHANU GREGORY L (59774)[facility] ([facility])[address] [place] [address] Sodium [Moles/Vol] 137 mmol/L Normal 136-145 [facility] Comment on above: Performed By: #### 2 4323-8 ####BHANU GREGORY L ([id number])[facility] ([facility])[address] [place] [address] Urea nitrogen [Mass/Vol] 17 mg/dL Normal 6-23 [facility] Comment on above: Performed By: #### 2 4323-8 ####BHANU GREGORY L ([id number])[facility] ([facility])[address] [place] [address] Magnesiumon 02-16-2025 Magnesium [Mass/Vol] 1.98 mg/dL Normal 1.60-2.40 [facility] Comment on above: Performed By: #### 1 9123-9 ####BHANU Treviño (28626)[facility] ([facility])[address] [place] [address] CBC panel Auto (Bld)on 02-15 Erythrocyte distribution width (RBC) [Ratio] 20.0 % High 11.5-14.5 [facility] Comment on above: Performed By: #### 5 8410-2 ####BHANU Treviño ([id number])[facility] ([facility])[address] [place] [address] Hematocrit (Bld) [Volume fraction] 23.6 % Low 41.0-52.0 [facility] Comment on above: Performed By: #### 5 8410-2 ####BHANU Treviño (44454)[facility] ([facility])[address] [place] [address] Hemoglobin (Bld) [Mass/Vol] 7.5 g/dL Low 13.5-17.5 [facility] Comment on above: Performed By: #### 5 8410-2 ####BHANU Treviño (29602)[facility] ([facility])[address] [place] [address] MCH (RBC) [Entitic mass] 24.4 pg Low 26.0-34.0 [facility] Comment on above: Performed By: #### 5 8410-2 ####BHANU Treviño (94405)[facility] ([facility])[address] [place] [address] MCHC (RBC) [Mass/Vol] 31.8 g/dL Low 32.0-36.0 [facility] Comment on above: Performed By: #### 5 8410-2 ####BHANU Treviño (74878)[facility] ([facility])[address] [place] [address] MCV (RBC) [Entitic vol] 77 fL Low 80-100 U [facility] Comment on above: Performed By: #### 5 8410-2 ####BHANU Treviño (60372)[facility] ([facility])[address] [place] [address] Nucleated RBC/100 WBC (Bld) [Ratio] 0.0 /100 WBCs Normal 0.0-0.0 [facility] Comment on above: Performed By: #### 5 8410-2 ####BHANU Treviño (67500)[facility] ([facility])[address] [place] [address] Platelets (Bld) [#/Vol] 673 x10*3/uL High 150-450 [facility] Comment on above: Performed By: #### 5 8410-2 ####BHANU Treviño (43077)[facility] ([facility])[address] [place] [address] RBC (Bld) [#/Vol] 3.07 x10*6/uL Low 4.50-5.90 [facility] Comment on above: Performed By: #### 5 8410-2 ####BHANU Treviño ([id number])[facility] ([facility])[address] [place] [address] WBC (Bld) [#/Vol] 20.2 x10*3/uL High 4.4-11.3 [facility] Comment on above: Performed By: #### 5 8410-2 ####BHANU Treviño ([id number])[facility] ([facility])[id number] [place] [id number] Comprehensive metabolic 2000 panelon 02-15-2025 Albumin BCP dye [Mass/Vol] 2.6 g/dL Low 3.4-5.0 [facility] Comment on above: Performed By: #### 2 4323-8 ####BHANU Treviño ([id number])[facility] ([facility])[address] [place] [address] ALP [Catalytic activity/Vol] 160 U/L High 33-120 [facility] Comment on above: Performed By: #### 2 4323-8 ####BHANU Treviño ([id number])[facility] ([facility])[address] [place] [address] ALT With P-5'-P [Catalytic activity/Vol] 36 U/L Normal 10-52 [facility] Comment on above: Result Comment: Sydni ents treated with Sulfasalazine may generate falsely decreased results for ALT. Performed By: #### 2 4323-8 ####BHANU Treviño ([id number])[facility] ([facility] [facility] [place] [address] Anion gap [Moles/Vol] 15 mmol/L Normal 10-20 [facility] Comment on above: Performed By: #### 2 4323-8 ####BHANU Treviño ([id number])[facility] ([facility])[address]133 [place] [address] AST With P-5'-P [Catalytic activity/Vol] 23 U/L Normal 9-39 [facility] Comment on above: Performed By: #### 2 4323-8 ####BHANU Treviño ([id number])[facility] ([facility])[address] [place] [address] Bilirubin [Mass/Vol] 0.4 mg/dL Normal 0.0-1.2 [facility] Comment on above: Performed By: #### 2 4323-8 ####BHANU Treviño (96890)[facility] ([facility])[address] [place] [address] Calcium [Mass/Vol] 8.3 mg/dL Low 8.6-10.6 [facility] Comment on above: Performed By: #### 2 4323-8 ####BHANU Treviño ([id number])[facility] ([facility])[address]476 [place] [address] Chloride [Moles/Vol] 100 mmol/L Normal 98-107 [facility] Comment on above: Performed By: #### 2 4323-8 ####BHANU Treviño ([id number])[facility] ([facility])[address] [place] [address] CO2 [Moles/Vol] 27 mmol/L Normal 21-32 [facility] Comment on above: Performed By: #### 2 4323-8 ####BHANU Treviño ([id number])[facility] ([facility])[address] [place] [address] Creatinine [Mass/Vol] 1.12 mg/dL Normal 0.50-1.30 [facility] Comment on above: Performed By: #### 2 4323-8 ####BHANU Treviño ([id number])[facility] ([facility])[address] [place] [address] Glomerular filtration rate/1.73 sq M.predicted 80 mL/min/1.73m*2 Normal >60 [facility] Comment on above: Result Comment: Calc ulations of estimated GFR are performed using the 2020 CKD-EPI Study Refit equation without the race variable for the IDMS-Traceable creatinine methods.https://jasn.asnjournals.org/content/early /ASN.1921750932 Performed By: #### 2 4323-8 ####BHANU Treviño ([id number])[facility] ([facility])[address]09 [place] [address] Glucose [Mass/Vol] 102 mg/dL High 74-99 [facility] Comment on above: Performed By: #### 2 4323-8 ####BHANU Treviño (57789)[facility] ([facility])[address] [place] [address] Potassium [Moles/Vol] 5.1 mmol/L Normal 3.5-5.3 [facility] Comment on above: Performed By: #### 2 4323-8 ####BHANU Treviño ([id number])[facility] ([facility])[address]97 [place] [address] Protein [Mass/Vol] 6.5 g/dL Normal 6.4-8.2 [facility] Comment on above: Performed By: #### 2 4323-8 ####BHANU Treviño (78800)[facility] ([facility])[address]489 [place] [address] Sodium [Moles/Vol] 137 mmol/L Normal 136-145 [facility] Comment on above: Performed By: #### 2 4323-8 ####BHANU Treviño ([id number])[facility] ([facility])[address]372 [place] [address] Urea nitrogen [Mass/Vol] 16 mg/dL Normal 6-23 [facility] Comment on above: Performed By: #### 2 4323-8 ####BHANU Treviño ([id number])[facility] ([facility])[address]76 [place] [address] Magnesiumon 02-15-2025 Magnesium [Mass/Vol] 1.81 mg/dL Normal 1.60-2.40 [facility] Comment on above: Performed By: #### 1 9123-9 ####BHANU Treviño ([id number])[facility] ([facility])[address]496 [place] [address] Basic metabolic 2000 panelon 02-13-2025 Anion gap [Moles/Vol] 16 mmol/L Normal 10-20 [facility] Comment on above: Performed By: #### 2 4321-2 ####BHANU Treviño ([id number])[facility] ([facility])[address]98 [place] [address] Calcium [Mass/Vol] 8.4 mg/dL Low 8.6-10.6 [facility] Comment on above: Performed By: #### 2 4321-2 ####BHANU Treviño ([id number])[facility] ([facility])[address] [place] [address] Chloride [Moles/Vol] 103 mmol/L Normal 98-107 [facility] Comment on above: Performed By: #### 2 4321-2 ####BHANU GREGORY L (49472)[facility] ([facility])[address] [place] [address] CO2 [Moles/Vol] 28 mmol/L Normal 21-32 [facility] Comment on above: Performed By: #### 2 4321-2 ####BHANU Treviño (55129)[facility] ([facility])[address]77 [place] [address] Creatinine [Mass/Vol] 1.22 mg/dL Normal 0.50-1.30 [facility] Comment on above: Performed By: #### 2 4321-2 ####BHANU Treviño (77894)[facility] ([facility])[address]38 [place] [address] Glomerular filtration rate/1.73 sq M.predicted 72 mL/min/1.73m*2 Normal >60 [facility] Comment on above: Result Comment: Calc ulations of estimated GFR are performed using the 2020 CKD-EPI Study Refit equation without the race variable for the IDMS-Traceable creatinine methods.https://jasn.asnjournals.org/content/ /ASN.7005029385 Performed By: #### 2 4321-2 ####BHANU Treviño ([id number])[facility] ([facility])[address]104 [place] [address] Glucose [Mass/Vol] 115 mg/dL High 74-99 [facility] Comment on above: Performed By: #### 2 4321-2 ####BHANU GREGORY L (35463)[facility] ([facility])[address]189 [place] [address] Potassium [Moles/Vol] 4.9 mmol/L Normal 3.5-5.3 [facility] Comment on above: Performed By: #### 2 4321-2 ####BHANU Treviño (09806)[facility] ([facility])[address]22 [place] [address] Sodium [Moles/Vol] 142 mmol/L Normal 136-145 [facility] Comment on above: Performed By: #### 2 4321-2 ####BHANU Treviño (44419)[facility] ([facility])[address]318 [place] [address] Urea nitrogen [Mass/Vol] 16 mg/dL Normal 6-23 [facility] Comment on above: Performed By: #### 2 4321-2 ####BHANU Treviño ([id number])[facility] ([facility])[address] [place] [address] Blood type and Indirect anti body screen panel (Bld)on 02-13-2025 ABO group Nom (Bld) A Normal [facility] Comment on above: Performed By: #### 3 4532-2 ####BHANU Treviño ([id number])[facility] ([facility])[address]328 [place] [address] Blood group antibody screen Ql Negative [facility] Comment on above: Performed By: #### 3 4532-2 ####BHANU Treviño ([id number])[facility] ([facility])[address]74 [place] [address] D Ag Ql (Bld) Positive [facility] Comment on above: Performed By: #### 3 4532-2 ####BHANU Treviño (44409)[facility] ([facility])[address] [place] [place] [address] CBC panel Auto (Bld)on 02-13 Erythrocyte distribution width (RBC) [Ratio] 20.1 % High 11.5-14.5 [facility] Comment on above: Performed By: #### 5 8410-2 ####BHANU Treviño (60868)[facility] ([facility])[address]15 [place] [address] Hematocrit (Bld) [Volume fraction] 23.1 % Low 41.0-52.0 [facility] Comment on above: Performed By: #### 5 8410-2 ####BHANU Treviño (72960)[facility] ([facility])[address]17 [place] [address] Hemoglobin (Bld) [Mass/Vol] 7.4 g/dL Low 13.5-17.5 [facility] Comment on above: Performed By: #### 5 8410-2 ####BHANU Treviño (65046)[facility] ([facility])[address] [place] [address] MCH (RBC) [Entitic mass] 24.5 pg Low 26.0-34.0 [facility] Comment on above: Performed By: #### 5 8410-2 ####BHANU Treviño (64198)[facility] ([facility])[address] [place] [address] MCHC (RBC) [Mass/Vol] 32.0 g/dL Normal 32.0-36.0 [facility] Comment on above: Performed By: #### 5 8410-2 ####BHANU Treviño (85009)[facility] ([facility])[address] [place] [address] MCV (RBC) [Entitic vol] 77 fL Low 80-100 U [facility] Comment on above: Performed By: #### 5 8410-2 ####BHAUN Treviño (18387)[facility] ([facility])[address]900 [place] [address] Nucleated RBC/100 WBC (Bld) [Ratio] 0.0 /100 WBCs Normal 0.0-0.0 [facility] Comment on above: Performed By: #### 5 8410-2 ####BHANU Treviño (89688)[facility] ([facility])[address] [place] [address] Platelets (Bld) [#/Vol] 664 x10*3/uL High 150-450 [facility] Comment on above: Performed By: #### 5 8410-2 ####BHANU Treviño (59583)[facility] ([facility])[address]45 [place] [address] RBC (Bld) [#/Vol] 3.02 x10*6/uL Low 4.50-5.90 [facility] Comment on above: Performed By: #### 5 8410-2 ####BHANU Treviño (97327)[facility] ([facility])[address]230 [place] [address] WBC (Bld) [#/Vol] 9.9 x10*3/uL Normal 4.4-11.3 [facility] Comment on above: Performed By: #### 5 8410-2 ####BHANU Treviño (95332)[facility] ([facility])[address] [place] [address] Magnesiumon 02-13-2025 Magnesium [Mass/Vol] 1.92 mg/dL Normal 1.60-2.40 [facility] Comment on above: Performed By: #### 1 9123-9 ####BHANU Treviño (79959)[facility] ([facility])[address] [place] [address] PT and aPTT panel Coag (PPP) on 02-13-2025 aPTT Coag (PPP) [Time] 31 s Normal 26-36 [facility] Comment on above: Order Comment: The A PTT is no longer used for monitoring Unfractionated Heparin Therapy. For monitoring Heparin Therapy, use the Heparin Assay. Performed By: #### 3 4529-8 ####BHANU Treviño (35607)[facility] ([facility])[address]40 [place] [address] INR Coag (PPP) [Relative time] 1.2 High 0.9-1.1 [facility] Comment on above: Order Comment: The A PTT is no longer used for monitoring Unfractionated Heparin Therapy. For monitoring Heparin Therapy, use the Heparin Assay. Performed By: #### 3 4529-8 ####BHANU Treviño (82085)[facility] ([facility])[address] [place] [address] PT Coag (PPP) [Time] 12.9 s High 9.8-12.4 [facility] Comment on above: Order Comment: The A PTT is no longer used for monitoring Unfractionated Heparin Therapy. For monitoring Heparin Therapy, use the Heparin Assay. Performed By: #### 3 4529-8 ####BHANU Treviño (18609)[facility] ([facility])[address] [place] [address] CBC panel Auto (Bld)on 02-12 Erythrocyte distribution width (RBC) [Ratio] 19.8 % High 11.5-14.5 [facility] Comment on above: Performed By: #### 5 8410-2 ####BHANU Treviño (73705)[facility] ([facility])[address] [place] [address] Hematocrit (Bld) [Volume fraction] 22.9 % Low 41.0-52.0 [facility] Comment on above: Performed By: #### 5 8410-2 ####BHANU Treviño (62068)[facility] ([facility])[address] [place] [address] Hemoglobin (Bld) [Mass/Vol] 7.4 g/dL Low 13.5-17.5 [facility] Comment on above: Performed By: #### 5 8410-2 ####BHANU Treviño (22595)[facility] ([facility])[address] [place] [address]676 MCH (RBC) [Entitic mass] 24.6 pg Low 26.0-34.0 [facility] Comment on above: Performed By: #### 5 8410-2 ####BHANU Treviño (86693)[facility] ([facility])[address] [place] [address] MCHC (RBC) [Mass/Vol] 32.3 g/dL Normal 32.0-36.0 [facility] Comment on above: Performed By: #### 5 8410-2 ####BHANU Treviño ([id number])[facility] ([facility])[address]37 [place] [address] MCV (RBC) [Entitic vol] 76 fL Low 80-100 U [facility] Comment on above: Performed By: #### 5 8410-2 ####BHANU Treviño (98960)[facility] ([facility])[address]442 [place] [address] Nucleated RBC/100 WBC (Bld) [Ratio] 0.0 /100 WBCs Normal 0.0-0.0 [facility] Comment on above: Performed By: #### 5 8410-2 ####BHANU Treviño (09072)[facility] ([facility])[address]41 [place] [address] Platelets (Bld) [#/Vol] 664 x10*3/uL High 150-450 [facility] Comment on above: Performed By: #### 5 8410-2 ####BHANU Treviño (64929)[facility] ([facility])[address]798 [place] [address] RBC (Bld) [#/Vol] 3.01 x10*6/uL Low 4.50-5.90 [facility] Comment on above: Performed By: #### 5 8410-2 ####BHANU Treviño (67423)[facility] ([facility])[address]17 [place] [address] WBC (Bld) [#/Vol] 9.2 x10*3/uL Normal 4.4-11.3 [facility] Comment on above: Performed By: #### 5 8410-2 ####BHANU Treviño (86457)[facility] ([facility])[address] [place] [address] Comprehensive metabolic 2000 panelon 05-28-2025 Albumin BCP dye [Mass/Vol] 2.6 g/dL Low 3.4-5.0 [facility] Comment on above: Performed By: #### 2 4323-8 ####BHANU Treviño (01552)[facility] ([facility])[address]90 [place] [address] ALP [Catalytic activity/Vol] 107 U/L Normal 33-120 [facility] Comment on above: Performed By: #### 2 4323-8 ####BHANU Treviño (64912)[facility] ([facility])[address]850 [place] [address] ALT With P-5'-P [Catalytic activity/Vol] 15 U/L Normal 10-52 [facility] Comment on above: Result Comment: Sydni ents treated with Sulfasalazine may generate falsely decreased results for ALT. Performed By: #### 2 4323-8 ####BHANU Treviño (22381)[facility] ([facility])[address]88 [place] [address] Anion gap [Moles/Vol] 14 mmol/L Normal 10-20 [facility] Comment on above: Performed By: #### 2 4323-8 ####BHANU Treviño (55506)[facility] ([facility])[address]87 [place] [address] AST With P-5'-P [Catalytic activity/Vol] 14 U/L Normal 9-39 [facility] Comment on above: Performed By: #### 2 4323-8 ####BHANU Treviño (39705)[facility] ([facility])[address]93 [place] [address] Bilirubin [Mass/Vol] 0.3 mg/dL Normal 0.0-1.2 [facility] Comment on above: Performed By: #### 2 4323-8 ####BHANU Treviño (50124)[facility] ([facility])[address]44 [place] [address] Calcium [Mass/Vol] 8.4 mg/dL Low 8.6-10.6 [facility] Comment on above: Performed By: #### 2 4323-8 ####BHANU Treviño (31058)[facility] ([facility])[address]305 [place] [address] Chloride [Moles/Vol] 101 mmol/L Normal 98-107 [facility] Comment on above: Performed By: #### 2 4323-8 ####BHANU GREGORY L (39619)[facility] ([facility])[address]198 [place] [address] CO2 [Moles/Vol] 28 mmol/L Normal 21-32 [facility] Comment on above: Performed By: #### 2 4323-8 ####BHANU Treviño ([id number])[facility] ([facility])19859 [place] [address] Creatinine [Mass/Vol] 1.08 mg/dL Normal 0.50-1.30 [facility] Comment on above: Performed By: #### 2 4323-8 ####BHANU Treviño ([id number])[facility] ([facility])[address]37 [place] [address] Glomerular filtration rate/1.73 sq M.predicted 83 mL/min/1.73m*2 Normal >60 [facility] Comment on above: Result Comment: Calc ulations of estimated GFR are performed using the 2020 CKD-EPI Study Refit equation without the race variable for the IDMS-Traceable creatinine methods.https://jasn.asnjournals.org/content/ /ASN.9726252837 Performed By: #### 2 4323-8 ####BHANU Treviño (65752)[facility] ([facility])[address]121 [place] [address] Glucose [Mass/Vol] 114 mg/dL High 74-99 [facility] Comment on above: Performed By: #### 2 4323-8 ####BHANU Treviño (40256)[facility] ([facility])47858 [place] [address] Potassium [Moles/Vol] 5.2 mmol/L Normal 3.5-5.3 [facility] Comment on above: Performed By: #### 2 4323-8 ####BHANU Treviño (99239)[facility] ([facility])[address]365 [place] [address] Protein [Mass/Vol] 7.1 g/dL Normal 6.4-8.2 [facility] Comment on above: Performed By: #### 2 4323-8 ####BHANU Treviño (25400)[facility] ([facility])[address]666 [place] [address] Sodium [Moles/Vol] 138 mmol/L Normal 136-145 [facility] Comment on above: Performed By: #### 2 4323-8 ####BHANU Treviño (22273)[facility] ([facility])[address]68 [place] [address] Urea nitrogen [Mass/Vol] 14 mg/dL Normal 6-23 [facility] Comment on above: Performed By: #### 2 4323-8 ####BHANU Treviño (64108)[facility] ([facility])[address] [place] [address] Magnesiumon 02-12-2025 Magnesium [Mass/Vol] 2.03 mg/dL Normal 1.60-2.40 [facility] Comment on above: Performed By: #### 1 9123-9 ####BHANU Treviño ([id number])[facility] ([facility])[address]602 [place] [address] Basic metabolic 2000 panelon 02-11-2025 Anion gap [Moles/Vol] 14 mmol/L Normal 10-20 [facility] Comment on above: Performed By: #### 2 4321-2 ####BHANU Treviño ([id number])[facility] ([facility])36747 [place] [address] Calcium [Mass/Vol] 9.1 mg/dL Normal 8.6-10.6 [facility] Comment on above: Performed By: #### 2 4321-2 ####BHANU GREGORY L (57115)[facility] ([facility])[address]285 [place] [address] Chloride [Moles/Vol] 100 mmol/L Normal 98-107 [facility] Comment on above: Performed By: #### 2 4321-2 ####BHANU GREGORY L (99568)[facility] ([facility])[address]996 [place] [address] CO2 [Moles/Vol] 29 mmol/L Normal 21-32 [facility] Comment on above: Performed By: #### 2 4321-2 ####BHANU GREGORY L (35416)[facility] ([facility])[address]282 [place] [address] Creatinine [Mass/Vol] 1.13 mg/dL Normal 0.50-1.30 [facility] Comment on above: Performed By: #### 2 4321-2 ####BHANU LAUREANOTZALANNA L (93111)[facility] ([facility])[address]10 [place] [address] Glomerular filtration rate/1.73 sq M.predicted 79 mL/min/1.73m*2 Normal >60 [facility] Comment on above: Result Comment: Calc ulations of estimated GFR are performed using the 2020 CKD-EPI Study Refit equation without the race variable for the IDMS-Traceable creatinine methods.https://jasn.asnjournals.org/content/ /ASN.1687504606 Performed By: #### 2 4321-2 ####BHANU LAUREANOTZALANNA L (59708)[facility] ([facility])[address]497 [place] [address] Glucose [Mass/Vol] 108 mg/dL High 74-99 [facility] Comment on above: Performed By: #### 2 4321-2 ####BHANU Treviño ([id number])[facility] ([facility])[address]267 [place] [address] Potassium [Moles/Vol] 4.6 mmol/L Normal 3.5-5.3 [facility] Comment on above: Performed By: #### 2 4321-2 ####BHANU Treviño (75541)[facility] ([facility])[address] [place] [address] Sodium [Moles/Vol] 138 mmol/L Normal 136-145 [facility] Comment on above: Performed By: #### 2 4321-2 ####BHANU Treviño (76322)[facility] ([facility])[address] [place] [address]67[address] Urea nitrogen [Mass/Vol] 16 mg/dL Normal 6-23 [facility] Comment on above: Performed By: #### 2 4321-2 ####BHANU Treviño ([id number])[facility] ([facility])[address] [place] [address] 09163 CBC panel Auto (Bld)on 02-11 Erythrocyte distribution width (RBC) [Ratio] 20.0 % High 11.5-14.5 [facility] Comment on above: Performed By: #### 5 8410-2 ####BHANU Treviño (79873)[facility] ([facility])[address] [place] [address] 68582 Hematocrit (Bld) [Volume fraction] 24.7 % Low 41.0-52.0 [facility] Comment on above: Performed By: #### 5 8410-2 ####BHANU Treviño (72464)[facility] ([facility])[address] [place] [address] 99049 Hemoglobin (Bld) [Mass/Vol] 8.1 g/dL Low 13.5-17.5 [facility] Comment on above: Performed By: #### 5 8410-2 ####BHANU Treviño (72091)[facility] ([facility])[address]76 [place] [address] MCH (RBC) [Entitic mass] 25.1 pg Low 26.0-34.0 [facility] Comment on above: Performed By: #### 5 8410-2 ####BHANU Treviño (34906)[facility] ([facility])13167 [place] [address] MCHC (RBC) [Mass/Vol] 32.8 g/dL Normal 32.0-36.0 [facility] Comment on above: Performed By: #### 5 8410-2 ####BHANU Treviño (85324)[facility] ([facility])[address]140 [place] [address] MCV (RBC) [Entitic vol] 77 fL Low 80-100 U [facility] Comment on above: Performed By: #### 5 8410-2 ####BHANU Treviño (40086)[facility] ([facility])[address]753 [place] [address] Nucleated RBC/100 WBC (Bld) [Ratio] 0.0 /100 WBCs Normal 0.0-0.0 [facility] Comment on above: Performed By: #### 5 8410-2 ####BHANU Treviño ([id number])[facility] ([facility])[address] [place] [address] Platelets (Bld) [#/Vol] 667 x10*3/uL High 150-450 [facility] Comment on above: Performed By: #### 5 8410-2 ####BHANU Treviño ([id number])[facility] ([facility])[address] [place] [address] RBC (Bld) [#/Vol] 3.23 x10*6/uL Low 4.50-5.90 [facility] Comment on above: Performed By: #### 5 8410-2 ####BHANU Treviño ([id number])[facility] ([facility])[address] [place] [address] WBC (Bld) [#/Vol] 11.6 x10*3/uL High 4.4-11.3 [facility] Comment on above: Performed By: #### 5 8410-2 ####BHANU Treviño ([id number])[facility] ([facility])[id number] [place] [id number] Magnesiumon 02-11-2025 Magnesium [Mass/Vol] 1.70 mg/dL Normal 1.60-2.40 [facility] Comment on above: Performed By: #### 1 9123-9 ####BHANU Treviño ([id number])[facility] ([facility])[id number] [place] [id number] PT and aPTT panel Coag (PPP) on 02-11-2025 aPTT Coag (PPP) [Time] 35 s Normal 26-36 [facility] Comment on above: Order Comment: The A PTT is no longer used for monitoring Unfractionated Heparin Therapy. For monitoring Heparin Therapy, use the Heparin Assay. Performed By: #### 3 4529-8 ####BHANU Treviño ([id number])[facility] ([facility])[id number] [place] [address] 16357 INR Coag (PPP) [Relative time] 1.3 High 0.9-1.1 [facility] Comment on above: Order Comment: The A PTT is no longer used for monitoring Unfractionated Heparin Therapy. For monitoring Heparin Therapy, use the Heparin Assay. Performed By: #### 3 4529-8 ####BHANU Treviño ([id number])[facility] ([facility])[address] [place] [address] PT Coag (PPP) [Time] 14.2 s High 9.8-12.4 [facility] Comment on above: Order Comment: The A PTT is no longer used for monitoring Unfractionated Heparin Therapy. For monitoring Heparin Therapy, use the Heparin Assay. Performed By: #### 3 4529-8 ####BHANU Treviño ([id number])[facility] ([facility])[address] [place] [address] 48042 Blood type and Indirect anti body screen panel (Bld)on 02-10-2025 ABO group Nom (Bld) A Normal [facility] Comment on above: Performed By: #### 3 4532-2 ####BHANU Treviño ([id number])[facility] ([facility])[address] [place] [address] 97946 Blood group antibody screen Ql Negative [facility] Comment on above: Performed By: #### 3 4532-2 ####BHANU Treviño ([id number])[facility] ([facility])[address] [place] [address] 96985 D Ag Ql (Bld) Positive [facility] Comment on above: Performed By: #### 3 4532-2 ####BHANU Treviño ([id number])[facility] ([facility])[address] [place] [address] 26834 CBC panel Auto (Bld)on 02-10 Erythrocyte distribution width (RBC) [Ratio] 20.0 % High 11.5-14.5 [facility] Comment on above: Performed By: #### 5 8410-2 ####BHANU Treviño ([id number])[facility] ([facility])[address] [place] [address] 66593 Hematocrit (Bld) [Volume fraction] 24.6 % Low 41.0-52.0 [facility] Comment on above: Performed By: #### 5 8410-2 ####BHANU Treviño ([id number])[facility] ([facility])[address] [place] [address] 17727 Hemoglobin (Bld) [Mass/Vol] 8.0 g/dL Low 13.5-17.5 [facility] Comment on above: Performed By: #### 5 8410-2 ####BHANU Treviño ([id number])[facility] ([facility])[address] [place] [address] 50790 MCH (RBC) [Entitic mass] 25.0 pg Low 26.0-34.0 [facility] Comment on above: Performed By: #### 5 8410-2 ####BHANU Treviño ([id number])[facility] ([facility])[address] [place] [address] MCHC (RBC) [Mass/Vol] 32.5 g/dL Normal 32.0-36.0 [facility] Comment on above: Performed By: #### 5 8410-2 ####BHANU Treviño ([id number])[facility] ([facility])[address] [place] [address] MCV (RBC) [Entitic vol] 77 fL Low 80-100 [facility] Comment on above: Performed By: #### 5 8410-2 ####BHANU Treviño ([id number])[facility] ([facility])[address] [place] [address] Nucleated RBC/100 WBC (Bld) [Ratio] 0.0 /100 WBCs Normal 0.0-0.0 [facility] Comment on above: Performed By: #### 5 8410-2 ####BHANU Treviño (72170)[facility] ([facility])[address] [place] [address] Platelets (Bld) [#/Vol] 593 x10*3/uL High 150-450 [facility] Comment on above: Performed By: #### 5 8410-2 ####BHANU Treviño ([id number])[facility] ([facility])[address] [place] [address] RBC (Bld) [#/Vol] 3.20 x10*6/uL Low 4.50-5.90 [facility] Comment on above: Performed By: #### 5 8410-2 ####BHANU Treviño (79240)[facility] ([facility])[address] [place] [address] WBC (Bld) [#/Vol] 10.6 x10*3/uL Normal 4.4-11.3 [facility] Comment on above: Performed By: #### 5 8410-2 ####BHANU Treviño ([id number])[facility] ([facility])[address] [place] [address] Basic metabolic 2000 panelon 02-08-2025 Anion gap [Moles/Vol] 13 mmol/L Normal 10-20 [facility] Comment on above: Performed By: #### 2 4321-2 ####BHANU Treviño ([id number])[facility] ([facility])[address]32 [place] [address] Calcium [Mass/Vol] 8.3 mg/dL Low 8.6-10.6 [facility] Comment on above: Performed By: #### 2 4321-2 ####BHANU Treviño ([id number])[facility] ([facility])[address] [place] [address] Chloride [Moles/Vol] 105 mmol/L Normal 98-107 [facility] Comment on above: Performed By: #### 2 4321-2 ####BHANU Treviño ([id number])[facility] ([facility])[address]42 [place] [address] CO2 [Moles/Vol] 27 mmol/L Normal 21-32 [facility] Comment on above: Performed By: #### 2 4321-2 ####BHANU Treviño ([id number])[facility] ([facility])[address] [place] [address] Creatinine [Mass/Vol] 1.11 mg/dL Normal 0.50-1.30 [facility] Comment on above: Performed By: #### 2 4321-2 ####BHANU GREGORY L (43751)[facility] ([facility])[address]60 [place] [address] Glomerular filtration rate/1.73 sq M.predicted 80 mL/min/1.73m*2 Normal >60 [facility] Comment on above: Result Comment: Calc ulations of estimated GFR are performed using the 2020 CKD-EPI Study Refit equation without the race variable for the IDMS-Traceable creatinine methods.https://jasn.asnjournals.org/content/ /ASN.9376714852 Performed By: #### 2 4321-2 ####BHANU Treviño ([id number])[facility] ([facility])[address] [place] [address] Glucose [Mass/Vol] 124 mg/dL High 74-99 [facility] Comment on above: Performed By: #### 2 4321-2 ####BHANU GREGORY L ([id number])[facility] ([facility])[address]351 [place] [address] Potassium [Moles/Vol] 4.8 mmol/L Normal 3.5-5.3 [facility] Comment on above: Performed By: #### 2 4321-2 ####BHANU GREGORY L ([id number])[facility] ([facility])[address] [place] [address] Sodium [Moles/Vol] 140 mmol/L Normal 136-145 [facility] Comment on above: Performed By: #### 2 4321-2 ####BHANU FLEMINGMOTZER L (85907)[facility] ([facility])[address]64 [place] [address] Urea nitrogen [Mass/Vol] 16 mg/dL Normal 6-23 [facility] Comment on above: Performed By: #### 2 4321-2 ####BHANU FLEMINGMOMELANIER L ([id number])[facility] ([facility])[address] [place] [address] CBC panel Auto (Bld)on 02-08 Erythrocyte distribution width (RBC) [Ratio] 20.5 % High 11.5-14.5 [facility] Comment on above: Performed By: #### 5 8410-2 ####BHANU LAUREANOTZER L (53599)[facility] ([facility])[address]389 [place] [address] Hematocrit (Bld) [Volume fraction] 25.2 % Low 41.0-52.0 [facility] Comment on above: Performed By: #### 5 8410-2 ####BHANU Treviño ([id number])[facility] ([facility])[address]75 [place] [address] Hemoglobin (Bld) [Mass/Vol] 8.0 g/dL Low 13.5-17.5 [facility] Comment on above: Performed By: #### 5 8410-2 ####BHANU Treviño (66599)[facility] ([facility])[address] [place] [address] 28631 MCH (RBC) [Entitic mass] 25.1 pg Low 26.0-34.0 [facility] Comment on above: Performed By: #### 5 8410-2 ####BHANU Treviño (98304)[facility] ([facility])[address] [place] [address] 32962 MCHC (RBC) [Mass/Vol] 31.7 g/dL Low 32.0-36.0 [facility] Comment on above: Performed By: #### 5 8410-2 ####BHANU Treviño ([id number])[facility] ([facility])[address] [place] [address] 69424 MCV (RBC) [Entitic vol] 79 fL Low 80-100 U [facility] Comment on above: Performed By: #### 5 8410-2 ####BHANU Treviño (58582)[facility] ([facility])[address] [place] [address] 55983 Nucleated RBC/100 WBC (Bld) [Ratio] 0.0 /100 WBCs Normal 0.0-0.0 [facility] Comment on above: Performed By: #### 5 8410-2 ####BHANU Treviño (74111)[facility] ([facility])[address]62 [place] [address] Platelets (Bld) [#/Vol] 463 x10*3/uL High 150-450 [facility] Comment on above: Performed By: #### 5 8410-2 ####BHANU Treviño (12453)[facility] ([facility])[address]84 [place] [address] RBC (Bld) [#/Vol] 3.19 x10*6/uL Low 4.50-5.90 [facility] Comment on above: Performed By: #### 5 8410-2 ####BHANU Treviño (54322)[facility] ([facility])[address]71 [place] [address] WBC (Bld) [#/Vol] 10.0 x10*3/uL Normal 4.4-11.3 [facility] Comment on above: Performed By: #### 5 8410-2 ####BHANU Treviño ([id number])[facility] ([facility])[address] [place] [address] Basic metabolic 2000 panelon 02-07-2025 Anion gap [Moles/Vol] 15 mmol/L Normal 10-20 [facility] Comment on above: Performed By: #### 2 4321-2 ####BHANU Treviño ([id number])[facility] ([facility])[address]854 [place] [address] Calcium [Mass/Vol] 8.4 mg/dL Low 8.6-10.6 [facility] Comment on above: Performed By: #### 2 4321-2 ####BHANU Treviño (11396)[facility] ([facility])[address]57 [place] [address] Chloride [Moles/Vol] 106 mmol/L Normal 98-107 [facility] Comment on above: Performed By: #### 2 4321-2 ####BHANU Treviño (94779)[facility] ([facility])[address]288 [place] [address] CO2 [Moles/Vol] 24 mmol/L Normal 21-32 [facility] Comment on above: Performed By: #### 2 4321-2 ####BHANU Treviño ([id number])[facility] ([facility])[address]891 [place] [address] Creatinine [Mass/Vol] 1.09 mg/dL Normal 0.50-1.30 [facility] Comment on above: Performed By: #### 2 4321-2 ####BHANU GREGORY L (84932)[facility] ([facility])[address]174 [place] [address] Glomerular filtration rate/1.73 sq M.predicted 82 mL/min/1.73m*2 Normal >60 [facility] Comment on above: Result Comment: Calc ulations of estimated GFR are performed using the 2020 CKD-EPI Study Refit equation without the race variable for the IDMS-Traceable creatinine methods.https://jasn.asnjournals.org/content/early /ASN.2458866189 Performed By: #### 2 4321-2 ####BHANU GREGORY L ([id number])[facility] ([facility])[address]458 [place] [address] Glucose [Mass/Vol] 110 mg/dL High 74-99 [facility] Comment on above: Performed By: #### 2 4321-2 ####BHANU GREGORY L (80814)[facility] ([facility])[address]792 [place] [address] Potassium [Moles/Vol] 4.7 mmol/L Normal 3.5-5.3 [facility] Comment on above: Performed By: #### 2 4321-2 ####BHANU FLEMINGMOTZER L (94017)[facility] ([facility])[address]07 [place] [address] Sodium [Moles/Vol] 140 mmol/L Normal 136-145 [facility] Comment on above: Performed By: #### 2 4321-2 ####BHANU GREGORY L ([id number])[facility] ([facility])[address]345 [place] [address] Urea nitrogen [Mass/Vol] 18 mg/dL Normal - [facility] Comment on above: Performed By: #### 2 4321-2 ####BHANU Treviño ([id number])[facility] ([facility])[address] [place] [address] 28634 CBC panel Auto (Bld)on 02-07 Erythrocyte distribution width (RBC) [Ratio] 20.4 % High 11.5-14.5 [facility] Comment on above: Performed By: #### 5 8410-2 ####BHANU Treviño ([id number])[facility] ([facility])[address] [place] [address] 90153 Hematocrit (Bld) [Volume fraction] 27.2 % Low 41.0-52.0 [facility] Comment on above: Performed By: #### 5 8410-2 ####BHANU Treviño (38172)[facility] ([facility])[address] [place] [address] 83733 Hemoglobin (Bld) [Mass/Vol] 9.0 g/dL Low 13.5-17.5 [facility] Comment on above: Performed By: #### 5 8410-2 ####BHANU Treviño (50077)[facility] ([facility])[address] [place] [address] 54526 MCH (RBC) [Entitic mass] 25.6 pg Low 26.0-34.0 [facility] Comment on above: Performed By: #### 5 8410-2 ####BHANU Treviño (42955)[facility] ([facility])[address] [place] [address] 32282 MCHC (RBC) [Mass/Vol] 33.1 g/dL Normal 32.0-36.0 [facility] Comment on above: Performed By: #### 5 8410-2 ####BHANU Treviño ([id number])[facility] ([facility])[address] [place] [address] 75254 MCV (RBC) [Entitic vol] 77 fL Low 80-100 U [facility] Comment on above: Performed By: #### 5 8410-2 ####BHANU Treviño (10570)[facility] ([facility])[address]1900 [place] [address] Nucleated RBC/100 WBC (Bld) [Ratio] 0.0 /100 WBCs Normal 0.0-0.0 [facility] Comment on above: Performed By: #### 5 8410-2 ####BHANU Treviño (97046)[facility] ([facility])[address]886 [place] [address] Platelets (Bld) [#/Vol] 483 x10*3/uL High 150-450 [facility] Comment on above: Performed By: #### 5 8410-2 ####BHANU Treviño (86517)[facility] ([facility])[address]01 [place] [address] RBC (Bld) [#/Vol] 3.52 x10*6/uL Low 4.50-5.90 [facility] Comment on above: Performed By: #### 5 8410-2 ####BHANU Treviño (75204)[facility] ([facility])[address]351 [place] [address] WBC (Bld) [#/Vol] 9.2 x10*3/uL Normal 4.4-11.3 [facility] Comment on above: Performed By: #### 5 8410-2 ####BHANU Treviño (94932)[facility] ([facility])[address]150 [place] [address] Magnesiumon 02-07-2025 Magnesium [Mass/Vol] 2.05 mg/dL Normal 1.60-2.40 [facility] Comment on above: Performed By: #### 1 9123-9 ####BHANU Treviño (37895)[facility] ([facility])[address]75 [place] [address] Basic metabolic 2000 panelon 02-06-2025 Anion gap [Moles/Vol] 12 mmol/L Normal 10-20 [facility] Comment on above: Performed By: #### 2 4321-2 ####BHANU GREGORY L (15315)[facility] ([facility])[address]21 [place] [address] Calcium [Mass/Vol] 8.1 mg/dL Low 8.6-10.6 [facility] Comment on above: Performed By: #### 2 4321-2 ####BHANU GREGORY L (01588)[facility] ([facility])[address]22 [place] [address] Chloride [Moles/Vol] 106 mmol/L Normal 98-107 [facility] Comment on above: Performed By: #### 2 4321-2 ####BHANU GREGORY L (43602)[facility] ([facility])[address]104 [place] [address] CO2 [Moles/Vol] 28 mmol/L Normal 21-32 [facility] Comment on above: Performed By: #### 2 4321-2 ####BHANU GREGORY L (27534)[facility] ([facility])[address]97 [place] [address] Creatinine [Mass/Vol] 1.22 mg/dL Normal 0.50-1.30 [facility] Comment on above: Performed By: #### 2 4321-2 ####BHANU GREGORY L (48441)[facility] ([facility])[address]016 [place] [address] Glomerular filtration rate/1.73 sq M.predicted 72 mL/min/1.73m*2 Normal >60 [facility] Comment on above: Result Comment: Calc ulations of estimated GFR are performed using the 2020 CKD-EPI Study Refit equation without the race variable for the IDMS-Traceable creatinine methods.https://jasn.asnjournals.org/content/ /ASN.9168531230 Performed By: #### 2 4321-2 ####BHANU Treviño (04747)[facility] ([facility])[address]275 [place] [address] Glucose [Mass/Vol] 98 mg/dL Normal 74-99 [facility] Comment on above: Performed By: #### 2 4321-2 ####BHANU Treviño (43140)[facility] ([facility])[address]38 [place] [address] Potassium [Moles/Vol] 4.5 mmol/L Normal 3.5-5.3 [facility] Comment on above: Performed By: #### 2 4321-2 ####BHANU Treviño ([id number])[facility] ([facility])[address]90 [place] [address] Sodium [Moles/Vol] 141 mmol/L Normal 136-145 [facility] Comment on above: Performed By: #### 2 4321-2 ####BHANU Treviño ([id number])[facility] ([facility])[address]806 [place] [address] Urea nitrogen [Mass/Vol] 15 mg/dL Normal 6-23 [facility] Comment on above: Performed By: #### 2 4321-2 ####BHANU Treviño ([id number])[facility] ([facility])[address] [place] [address] 47528 CBC panel Auto (Bld)on 02-06 Erythrocyte distribution width (RBC) [Ratio] 20.2 % High 11.5-14.5 [facility] Comment on above: Performed By: #### 5 8410-2 ####BHANU Treviño (82268)[facility] ([facility])[address]360 [place] [address] Hematocrit (Bld) [Volume fraction] 26.1 % Low 41.0-52.0 [facility] Comment on above: Performed By: #### 5 8410-2 ####BHANU Treviño (19691)[facility] ([facility])[address] [place] [address] 72868 Hemoglobin (Bld) [Mass/Vol] 8.4 g/dL Low 13.5-17.5 [facility] Comment on above: Performed By: #### 5 8410-2 ####BHANU Treviño ([id number])[facility] ([facility])[address]89 [place] [address] MCH (RBC) [Entitic mass] 25.1 pg Low 26.0-34.0 [facility] Comment on above: Performed By: #### 5 8410-2 ####BHANU Treviño (64566)[facility] ([facility])[address]1002 [place] [address] MCHC (RBC) [Mass/Vol] 32.2 g/dL Normal 32.0-36.0 [facility] Comment on above: Performed By: #### 5 8410-2 ####BHANU Treviño (69735)[facility] ([facility])[address] [place] [address] 06883 MCV (RBC) [Entitic vol] 78 fL Low 80-100 U [facility] Comment on above: Performed By: #### 5 8410-2 ####BHANU Treviño (40166)[facility] ([facility])[address] [place] [address] 60175 Nucleated RBC/100 WBC (Bld) [Ratio] 0.0 /100 WBCs Normal 0.0-0.0 [facility] Comment on above: Performed By: #### 5 8410-2 ####BHANU Treviño (63354)[facility] ([facility])[address]763 [place] [address] Platelets (Bld) [#/Vol] 426 x10*3/uL Normal 150-450 [facility] Comment on above: Performed By: #### 5 8410-2 ####BHANU Treviño (64997)[facility] ([facility])22683 [place] [address] RBC (Bld) [#/Vol] 3.34 x10*6/uL Low 4.50-5.90 [facility] Comment on above: Performed By: #### 5 8410-2 ####BHANU Treviño (93049)[facility] ([facility])[address] [place] [address] 64414 WBC (Bld) [#/Vol] 9.4 x10*3/uL Normal 4.4-11.3 [facility] Comment on above: Performed By: #### 5 8410-2 ####BHANU Treviño (73800)[facility] ([facility])[address] [place] [address] 26642 Magnesiumon 02-06-2025 Magnesium [Mass/Vol] 2.21 mg/dL Normal 1.60-2.40 [facility] Comment on above: Performed By: #### 1 9123-9 ####BHANU Treviño (53523)[facility] ([facility])[address] [place] [address] 87040 CBC panel Auto (Bld)on 02-05 Erythrocyte distribution width (RBC) [Ratio] 19.9 % High 11.5-14.5 [facility] Comment on above: Performed By: #### 5 8410-2 ####BHANU Treviño (10404)[facility] ([facility])[address] [place] [address] 53402 Hematocrit (Bld) [Volume fraction] 26.4 % Low 41.0-52.0 [facility] Comment on above: Performed By: #### 5 8410-2 ####BHANU Treviño (43427)[facility] ([facility])[address] [place] [address] 27745 Hemoglobin (Bld) [Mass/Vol] 8.4 g/dL Low 13.5-17.5 [facility] Comment on above: Performed By: #### 5 8410-2 ####BHANU Treviño (92777)[facility] ([facility])[address] [place] [address] 44636 MCH (RBC) [Entitic mass] 24.6 pg Low 26.0-34.0 [facility] Comment on above: Performed By: #### 5 8410-2 ####BHANU Treviño (49649)[facility] ([facility])[address]259 [place] [address] MCHC (RBC) [Mass/Vol] 31.8 g/dL Low 32.0-36.0 [facility] Comment on above: Performed By: #### 5 8410-2 ####BHANU Treviño (41259)[facility] ([facility])[address]73 [place] [address] MCV (RBC) [Entitic vol] 77 fL Low 80-100 U [facility] Comment on above: Performed By: #### 5 8410-2 ####BHANU Treviño ([id number])[facility] ([facility])[id number] [place] [address] Nucleated RBC/100 WBC (Bld) [Ratio] 0.0 /100 WBCs Normal 0.0-0.0 [facility] Comment on above: Performed By: #### 5 8410-2 ####BHANU Treviño ([id number])[facility] ([facility])[address] [place] [address] Platelets (Bld) [#/Vol] 399 x10*3/uL Normal 150-450 [facility] Comment on above: Performed By: #### 5 8410-2 ####BHANU Treviño ([id number])[facility] ([facility])[address] [place] [address] RBC (Bld) [#/Vol] 3.41 x10*6/uL Low 4.50-5.90 [facility] Comment on above: Performed By: #### 5 8410-2 ####BHANU Treviño ([id number])[facility] ([facility])[address] [place] [address] WBC (Bld) [#/Vol] 10.1 x10*3/uL Normal 4.4-11.3 [facility] Comment on above: Performed By: #### 5 8410-2 ####BHANU Treviño ([id number])[facility] ([facility])[address] [place] [address] Magnesiumon 02-05-2025 Magnesium [Mass/Vol] 1.87 mg/dL Normal 1.60-2.40 [facility] Comment on above: Performed By: #### 1 9123-9 ####BHANU Treviño ([id number])[facility] ([facility])[address] [place] [address] Renal function 2000 panelon 02-05-2025 Albumin BCP dye [Mass/Vol] 2.6 g/dL Low 3.4-5.0 [facility] Comment on above: Performed By: #### 2 4362-6 ####BHANU Treviño ([id number])[facility] ([facility])[address] [place] [address] Anion gap [Moles/Vol] 13 mmol/L Normal 10-20 [facility] Comment on above: Performed By: #### 2 4362-6 ####BHANU Treviño ([id number])[facility] ([facility])[address] [place] [address] Calcium [Mass/Vol] 7.7 mg/dL Low 8.6-10.6 [facility] Comment on above: Performed By: #### 2 4362-6 ####BHANU Treviño ([id number])[facility] ([facility])[address] [place] [address] Chloride [Moles/Vol] 107 mmol/L Normal 98-107 [facility] Comment on above: Performed By: #### 2 4362-6 ####BHANU Treviño ([id number])[facility] ([facility])[address]43 [place] [address] CO2 [Moles/Vol] 26 mmol/L Normal 21-32 [facility] Comment on above: Performed By: #### 2 4362-6 ####BHANU Treviño ([id number])[facility] ([facility])[address] [place] [address] Creatinine [Mass/Vol] 1.02 mg/dL Normal 0.50-1.30 [facility] Comment on above: Performed By: #### 2 4362-6 ####BHANU Treviño ([id number])[facility] ([facility])[address]368 [place] [address] Glomerular filtration rate/1.73 sq M.predicted 89 mL/min/1.73m*2 Normal >60 [facility] Comment on above: Result Comment: Calc ulations of estimated GFR are performed using the 2020 CKD-EPI Study Refit equation without the race variable for the IDMS-Traceable creatinine methods.https://jasn.asnjournals.org/content/early /ASN.1802085169 Performed By: #### 2 4362-6 ####BHANU Treviño ([id number])[facility] ([facility])[address] [place] [address] Glucose [Mass/Vol] 94 mg/dL Normal 74-99 [facility] Comment on above: Performed By: #### 2 4362-6 ####BHANU Treviño ([id number])[facility] ([facility])[address] [place] [address] Phosphate [Mass/Vol] 2.8 mg/dL Normal 2.5-4.9 [facility] Comment on above: Performed By: #### 2 4362-6 ####BHANU GREGORY L ([id number])[facility] ([facility])[address]36 [place] [address] Potassium [Moles/Vol] 4.4 mmol/L Normal 3.5-5.3 [facility] Comment on above: Performed By: #### 2 4362-6 ####BHANU GREGORY L ([id number])[facility] ([facility])[address]372 [place] [address] Sodium [Moles/Vol] 142 mmol/L Normal 136-145 [facility] Comment on above: Performed By: #### 2 4362-6 ####BHANU Treviño ([id number])[facility] ([facility])[address]46 [place] [address] Urea nitrogen [Mass/Vol] 13 mg/dL Normal 6-23 [facility] Comment on above: Performed By: #### 2 4362-6 ####BHANU Treviño ([id number])[facility] ([facility])[address]704 [place] [address] Bacteria identifiedon 2024 Bacteria identified Cx Nom (Unsp spec) Abnormal [facility] Comment on above: Performed By: #### 6 463-4 ####BHANU Treviño ([id number])[facility] ([facility])[address] [place] [address] Blood type and Indirect anti body screen panel (Bld)on 02-04-2025 ABO group Nom (Bld) A Normal [facility] Comment on above: Performed By: #### 3 4532-2 ####BHANU Treviño ([id number])[facility] ([facility])[address] [place] [address] Blood group antibody screen Ql Negative Normal [facility] Comment on above: Performed By: #### 3 4532-2 ####BHANU Treviño ([id number])[facility] ([facility])[address]32 [facility], [place] [address] D Ag Ql (Bld) Positive Normal [facility] Comment on above: Performed By: #### 3 4532-2 ####BHANU Treviño ([id number])[facility] ([facility])[address] [place] [address] CBC panel Auto (Bld)on 02-04 Erythrocyte distribution width (RBC) [Ratio] 19.6 % High 11.5-14.5 [facility] Comment on above: Performed By: #### 5 8410-2 ####BHANU Treviño (78953)[facility] ([facility])[address]80 [place] [address] Hematocrit (Bld) [Volume fraction] 28.8 % Low 41.0-52.0 [facility] Comment on above: Performed By: #### 5 8410-2 ####BHANU Treviño (71577)[facility] ([facility])[address]138 [place] [address] Hemoglobin (Bld) [Mass/Vol] 9.1 g/dL Low 13.5-17.5 [facility] Comment on above: Performed By: #### 5 8410-2 ####BHANU Treviño (77157)[facility] ([facility])[address] [place] [address] MCH (RBC) [Entitic mass] 24.6 pg Low 26.0-34.0 [facility] Comment on above: Performed By: #### 5 8410-2 ####BHANU Treviño (32826)[facility] ([facility])[address]74 [place] [address] MCHC (RBC) [Mass/Vol] 31.6 g/dL Low 32.0-36.0 [facility] Comment on above: Performed By: #### 5 8410-2 ####BHANU Treviño ([id number])[facility] ([facility])[address]24 [place] [address] MCV (RBC) [Entitic vol] 78 fL Low 80-100 [facility] Comment on above: Performed By: #### 5 8410-2 ####BHANU Treviño ([id number])[facility] ([facility])[address] [place] [address] Nucleated RBC/100 WBC (Bld) [Ratio] 0.0 /100 WBCs Normal 0.0-0.0 [facility] Comment on above: Performed By: #### 5 8410-2 ####BHANU Treviño (30782)[facility] ([facility])[address]19 [place] [address] Platelets (Bld) [#/Vol] 430 x10*3/uL Normal 150-450 [facility] Comment on above: Performed By: #### 5 8410-2 ####BHANU Treviño (55706)[facility] ([facility])[address] [place] [address] RBC (Bld) [#/Vol] 3.70 x10*6/uL Low 4.50-5.90 [facility] Comment on above: Performed By: #### 5 8410-2 ####BHANU Treviño ([id number])[facility] ([facility])[address] [place] [address] WBC (Bld) [#/Vol] 10.7 x10*3/uL Normal 4.4-11.3 [facility] Comment on above: Performed By: #### 5 8410-2 ####BHANU Treviño ([id number])[facility] ([facility])[address] [place] [address] Fungus identifiedon 02-05-20 Fungus identified Cx Nom (Unsp spec) Abnormal [facility] Comment on above: Performed By: #### 5 80-1 ####BHANU Treviño (91130)[facility] ([facility])[address] [place] [address] Magnesiumon 02-04-2025 Magnesium [Mass/Vol] 1.84 mg/dL Normal 1.60-2.40 [facility] Comment on above: Performed By: #### 1 9123-9 ####BHANU Treviño ([id number])[facility] ([facility])[address] [place] [address] PT and aPTT panel Coag (PPP) on 02-04-2025 aPTT Coag (PPP) [Time] 33 s Normal 26-36 [facility] Comment on above: Order Comment: The A PTT is no longer used for monitoring Unfractionated Heparin Therapy. For monitoring Heparin Therapy, use the Heparin Assay. Performed By: #### 3 4529-8 ####BHANU Treviño ([id number])[facility] ([facility])[address] [place] [address] INR Coag (PPP) [Relative time] 1.2 High 0.9-1.1 [facility] Comment on above: Order Comment: The A PTT is no longer used for monitoring Unfractionated Heparin Therapy. For monitoring Heparin Therapy, use the Heparin Assay. Performed By: #### 3 4529-8 ####BHANU Trveiño ([id number])[facility] ([facility])[address] [place] [address] PT Coag (PPP) [Time] 13.4 s High 9.8-12.4 [facility] Comment on above: Order Comment: The A PTT is no longer used for monitoring Unfractionated Heparin Therapy. For monitoring Heparin Therapy, use the Heparin Assay. Performed By: #### 3 4529-8 ####BHANU Treviño ([id number])[facility] ([facility])[address] [place] [address] Renal function 2000 panelon 02-04-2025 Albumin BCP dye [Mass/Vol] 2.5 g/dL Low 3.4-5.0 [facility] Comment on above: Performed By: #### 2 4362-6 ####BHANU Treviño (65554)[facility] ([facility])[address] [place] [address] Anion gap [Moles/Vol] 11 mmol/L Normal 10-20 [facility] Comment on above: Performed By: #### 2 4362-6 ####BHANU Treviño ([id number])[facility] ([facility])[address] [place] [address] 269[address] Calcium [Mass/Vol] 8.2 mg/dL Low 8.6-10.6 [facility] Comment on above: Performed By: #### 2 4362-6 ####BHANU Treviño (42060)[facility] ([facility])[address] [place] [address] Chloride [Moles/Vol] 107 mmol/L Normal 98-107 [facility] Comment on above: Performed By: #### 2 4362-6 ####BHANU Treviño ([id number])[facility] ([facility])[address] [place] [address] CO2 [Moles/Vol] 28 mmol/L Normal 21-32 [facility] Comment on above: Performed By: #### 2 4362-6 ####BHANU Treviño ([id number])[facility] ([facility])[address]93 [place] [address] Creatinine [Mass/Vol] 1.23 mg/dL Normal 0.50-1.30 [facility] Comment on above: Performed By: #### 2 4362-6 ####BHANU Treviño ([id number])[facility] ([facility])[address]148 [place] [address] Glomerular filtration rate/1.73 sq M.predicted 71 mL/min/1.73m*2 Normal >60 [facility] Comment on above: Result Comment: Calc ulations of estimated GFR are performed using the 2020 CKD-EPI Study Refit equation without the race variable for the IDMS-Traceable creatinine methods.https://jasn.asnjournals.org/content/ /ASN.5193956857 Performed By: #### 2 4362-6 ####BHANU Treviño ([id number])[facility] ([facility])[address]193 [place] [address] Glucose [Mass/Vol] 108 mg/dL High 74-99 [facility] Comment on above: Performed By: #### 2 4362-6 ####BHANU Treviño (58298)[facility] ([facility])[address] [place] [address] Phosphate [Mass/Vol] 2.1 mg/dL Low 2.5-4.9 [facility] Comment on above: Performed By: #### 2 4362-6 ####BHANU Treviño ([id number])[facility] ([facility])[address]702 [place] [address] Potassium [Moles/Vol] 4.3 mmol/L Normal 3.5-5.3 [facility] Comment on above: Performed By: #### 2 4362-6 ####BHANU Treviño ([id number])[facility] ([facility])[address] [place] [address] Sodium [Moles/Vol] 142 mmol/L Normal 136-145 [facility] Comment on above: Performed By: #### 2 4362-6 ####BHANU Treviño (96576)[facility] ([facility])[address]69 [place] [address] Urea nitrogen [Mass/Vol] 15 mg/dL Normal 6-23 [facility] Comment on above: Performed By: #### 2 4362-6 ####BHANU Treviño ([id number])[facility] ([facility])[address]304 [place] [address] CBC W Auto Differential pane l (Bld)on 02-03-2025 Basophils (Bld) [#/Vol] 0.05 x10*3/uL Normal 0.00-0.10 [facility] Comment on above: Performed By: #### 5 7021-8 ####BHANU Treviño ([id number])[facility] ([facility])[address]27 [place] [address] Basophils/100 WBC (Bld) 0.7 % Normal 0.0-2.0 [facility] Comment on above: Performed By: #### 5 7021-8 ####BHANU Treviño ([id number])[facility] ([facility])[address]231 [place] [address] Eosinophils (Bld) [#/Vol] 0.55 x10*3/uL Normal 0.00-0.70 [facility] Comment on above: Performed By: #### 5 7021-8 ####BHANU Treviño ([id number])[facility] ([facility])[address] [place] [address]195 Eosinophils/100 WBC (Bld) 7.4 % Normal 0.0-6.0 [facility] Comment on above: Performed By: #### 5 7021-8 ####BHANU Treviño (41280)[facility] ([facility])[address] [place] [address] 25247 Erythrocyte distribution width (RBC) [Ratio] 20.0 % High 11.5-14.5 [facility] Comment on above: Performed By: #### 5 7021-8 ####BHANU Treviño (23556)[facility] ([facility])[address] [place] [address] Hematocrit (Bld) [Volume fraction] 25.4 % Low 41.0-52.0 [facility] Comment on above: Performed By: #### 5 7021-8 ####BHANU Treviño (73704)[facility] ([facility])[address] [place] [address]21 Hemoglobin (Bld) [Mass/Vol] 8.0 g/dL Low 13.5-17.5 [facility] Comment on above: Performed By: #### 5 7021-8 ####BHANU Treviño (60678)[facility] ([facility])[address] [place] [address] 46587 Immature granulocytes (Bld) [#/Vol] 0.03 x10*3/uL Normal 0.00-0.70 [facility] Comment on above: Performed By: #### 5 7021-8 ####BHANU Treviño ([id number])[facility] ([facility])[address] [place] [address] 70584 Immature granulocytes/100 WBC (Bld) 0.4 % Normal 0.0-0.9 [facility] Comment on above: Result Comment: Christine ture Granulocyte Count (IG) includes promyelocytes, myelocytes and metamyelocytes but does not include bands. Percent differential counts (%) should be interpreted in the context of the absolute cell counts (cells/UL). Performed By: #### 5 7021-8 ####BHANU Treviño ([id number])[facility] ([facility])[address]797 [place] [address] Lymphocytes (Bld) [#/Vol] 1.37 x10*3/uL Normal 1.20-4.80 [facility] Comment on above: Performed By: #### 5 7021-8 ####BHANU Treviño ([id number])[facility] ([facility])[address]861 [place] [address] Lymphocytes/100 WBC (Bld) 18.4 % Normal 13.0-44.0 [facility] Comment on above: Performed By: #### 5 7021-8 ####BHANU Treviño (76283)[facility] ([facility])68335 [place] [address] MCH (RBC) [Entitic mass] 24.2 pg Low 26.0-34.0 [facility] Comment on above: Performed By: #### 5 7021-8 ####BHANU Treviño ([id number])[facility] ([facility])[address]884 [place] [address] MCHC (RBC) [Mass/Vol] 31.5 g/dL Low 32.0-36.0 [facility] Comment on above: Performed By: #### 5 7021-8 ####BHANU Treviño (09897)[facility] ([facility])[address]85 [place] [address] MCV (RBC) [Entitic vol] 77 fL Low 80-100 U [facility] Comment on above: Performed By: #### 5 7021-8 ####BHANU Treviño (24917)[facility] ([facility])[address]84 [place] [address] Monocytes (Bld) [#/Vol] 0.67 x10*3/uL Normal 0.10-1.00 [facility] Comment on above: Performed By: #### 5 7021-8 ####BHANU Treviño (88626)[facility] ([facility])[address]48 [place] [address] Monocytes/100 WBC (Bld) 9.0 % Normal 2.0-10.0 [facility] Comment on above: Performed By: #### 5 7021-8 ####BHANU Treviño (70328)[facility] ([facility])[address]593 [place] [address] Neutrophils (Bld) [#/Vol] 4.77 x10*3/uL Normal 1.20-7.70 [facility] Comment on above: Result Comment: Perc ent differential counts (%) should be interpreted in the context of the absolute cell counts (cells/uL). Performed By: #### 5 7021-8 ####BHANU Treviño (14860)[facility] ([facility])[address]128 [place] [address] Neutrophils/100 WBC (Bld) 64.1 % Normal 40.0-80.0 [facility] Comment on above: Performed By: #### 5 7021-8 ####BHANU Treviño (41565)[facility] ([facility])[address]162 [place] [address] Nucleated RBC/100 WBC (Bld) [Ratio] 0.0 /100 WBCs Normal 0.0-0.0 [facility] Comment on above: Performed By: #### 5 7021-8 ####BHANU GREGORY L ([id number])[facility] ([facility])[address]17 [place] [address] Platelets (Bld) [#/Vol] 407 x10*3/uL Normal 150-450 [facility] Comment on above: Performed By: #### 5 7021-8 ####BHANU FLEMINGMOJOSEFA L (70750)[facility] ([facility])[address]013 [place] [address] RBC (Bld) [#/Vol] 3.31 x10*6/uL Low 4.50-5.90 [facility] Comment on above: Performed By: #### 5 7021-8 ####BHANU Treviño (21048)[facility] ([facility])[address]25 [place] [address] WBC (Bld) [#/Vol] 7.4 x10*3/uL Normal 4.4-11.3 [facility] Comment on above: Performed By: #### 5 7021-8 ####BHANU Treviño ([id number])[facility] ([facility])[address] [place] [address] Glucose Test strip manual (B ld) [Mass/Vol]on 02-03-2025 Glucose [Mass/Vol] 102 mg/dL High 74-99 [facility] Comment on above: Performed By: #### 2 341-6 ####BHANU Treviño (65075)[facility] ([facility])[address] [place] [address] 59890 Renal function 2000 panelon 02-03-2025 Albumin BCP dye [Mass/Vol] 2.4 g/dL Low 3.4-5.0 [facility] Comment on above: Performed By: #### 2 4362-6 ####BHANU Treviño ([id number])[facility] ([facility])[address]238 [place] [address] Anion gap [Moles/Vol] 10 mmol/L Normal 10-20 [facility] Comment on above: Performed By: #### 2 4362-6 ####BHANU Treviño (52163)[facility] ([facility])15706 [place] [address] Calcium [Mass/Vol] 7.8 mg/dL Low 8.6-10.6 [facility] Comment on above: Performed By: #### 2 4362-6 ####BHANU Treviño (22510)[facility] ([facility])[address] [place] [address] 78572 Chloride [Moles/Vol] 107 mmol/L Normal 98-107 [facility] Comment on above: Performed By: #### 2 4362-6 ####BHANU Treviño (33859)[facility] ([facility])[address]189 [place] [address] CO2 [Moles/Vol] 30 mmol/L Normal 21-32 [facility] Comment on above: Performed By: #### 2 4362-6 ####BHANU Treviño (79250)[facility] ([facility])[address]452 [place] [address] Creatinine [Mass/Vol] 1.10 mg/dL Normal 0.50-1.30 [facility] Comment on above: Performed By: #### 2 4362-6 ####BHANU Treviño ([id number])[facility] ([facility])22042 [place] [address] Glomerular filtration rate/1.73 sq M.predicted 81 mL/min/1.73m*2 Normal >60 [facility] Comment on above: Result Comment: Calc ulations of estimated GFR are performed using the 2020 CKD-EPI Study Refit equation without the race variable for the IDMS-Traceable creatinine methods.https://jasn.asnjournals.org/content/ /ASN.7574635025 Performed By: #### 2 4362-6 ####BHANU Treviño (46053)[facility] ([facility])[address]303 [place] [address] Glucose [Mass/Vol] 94 mg/dL Normal 74-99 [facility] Comment on above: Performed By: #### 2 4362-6 ####BHANU Treviño (78368)[facility] ([facility])[address]60 [place] [address] Phosphate [Mass/Vol] 2.9 mg/dL Normal 2.5-4.9 [facility] Comment on above: Performed By: #### 2 4362-6 ####BHANU Treviño (39735)[facility] ([facility])[address]38 [place] [address] Potassium [Moles/Vol] 4.9 mmol/L Normal 3.5-5.3 [facility] Comment on above: Performed By: #### 2 4362-6 ####BHANU Treviño (38088)[facility] ([facility])[address]30 [place] [address] Sodium [Moles/Vol] 142 mmol/L Normal 136-145 [facility] Comment on above: Performed By: #### 2 4362-6 ####BHANU Treviño (63817)[facility] ([facility])[address] [place] [address] 22182 Urea nitrogen [Mass/Vol] 15 mg/dL Normal 6-23 [facility] Comment on above: Performed By: #### 2 4362-6 ####BHANU Treviño ([id number])[facility] ([facility])[address] [place] [address] 13014 CBC W Auto Differential pane l (Bld)on 02-02-2025 Basophils (Bld) [#/Vol] 0.05 x10*3/uL Normal 0.00-0.10 [facility] Comment on above: Performed By: #### 5 7021-8 ####BHANU Treviño ([id number])[facility] ([facility])[address]11 [place] [address] Basophils/100 WBC (Bld) 0.9 % Normal 0.0-2.0 [facility] Comment on above: Performed By: #### 5 7021-8 ####BHANU Treviño (91854)[facility] ([facility])[address] [place] [address] 09210 Eosinophils (Bld) [#/Vol] 0.51 x10*3/uL Normal 0.00-0.70 [facility] Comment on above: Performed By: #### 5 7021-8 ####BHANU Treviño (11643)[facility] ([facility])[address]16 [place] [address] Eosinophils/100 WBC (Bld) 9.2 % Normal 0.0-6.0 [facility] Comment on above: Performed By: #### 5 7021-8 ####BHANU Treviño (53574)[facility] ([facility])[address]97 [place] [address] Erythrocyte distribution width (RBC) [Ratio] 19.2 % High 11.5-14.5 [facility] Comment on above: Performed By: #### 5 7021-8 ####BHANU Treviño (87591)[facility] ([facility])[address] [place] [address] 86173 Hematocrit (Bld) [Volume fraction] 30.4 % Low 41.0-52.0 [facility] Comment on above: Performed By: #### 5 7021-8 ####BHANU Treviño (70882)[facility] ([facility])[address] [place] [address] 20246 Hemoglobin (Bld) [Mass/Vol] 9.7 g/dL Low 13.5-17.5 [facility] Comment on above: Performed By: #### 5 7021-8 ####BHANU Treviño ([id number])[facility] ([facility])[id number] [place] [address] [id number] Immature granulocytes (Bld) [#/Vol] 0.02 x10*3/uL Normal 0.00-0.70 [facility] Comment on above: Performed By: #### 5 7021-8 ####BHANU Treviño ([id number])[facility] ([facility])[address] [place] [address] Immature granulocytes/100 WBC (Bld) 0.4 % Normal 0.0-0.9 [facility] Comment on above: Result Comment: Christine ture Granulocyte Count (IG) includes promyelocytes, myelocytes and metamyelocytes but does not include bands. Percent differential counts (%) should be interpreted in the context of the absolute cell counts (cells/UL). Performed By: #### 5 7021-8 ####BHANU Treviño ([id number])[facility] ([facility])[address] [place] [address] Lymphocytes (Bld) [#/Vol] 0.92 x10*3/uL Low 1.20-4.80 [facility] Comment on above: Performed By: #### 5 7021-8 ####BHANU Treviño ([id number])[facility] ([facility])[id number] [place] [address] [id number] Lymphocytes/100 WBC (Bld) 16.6 % Normal 13.0-44.0 [facility] Comment on above: Performed By: #### 5 7021-8 ####BHANU Treviño ([id number])[facility] ([facility])[id number] [place] [address] 78895 MCH (RBC) [Entitic mass] 24.4 pg Low 26.0-34.0 [facility] Comment on above: Performed By: #### 5 7021-8 ####BHANU Treviño ([id number])[facility] ([facility])[address] [place] [address] 89929 MCHC (RBC) [Mass/Vol] 31.9 g/dL Low 32.0-36.0 [facility] Comment on above: Performed By: #### 5 7021-8 ####BHANU Treviño ([id number])[facility] ([facility])[address] [place] [address] 69384 MCV (RBC) [Entitic vol] 77 fL Low 80-100 U [facility] Comment on above: Performed By: #### 5 7021-8 ####BHANU Treviño ([id number])[facility] ([facility])[address] [place] [address] 17543 Monocytes (Bld) [#/Vol] 0.63 x10*3/uL Normal 0.10-1.00 [facility] Comment on above: Performed By: #### 5 7021-8 ####BHANU Treviño ([id number])[facility] ([facility])[address]240 [place] [address] Monocytes/100 WBC (Bld) 11.4 % Normal 2.0-10.0 [facility] Comment on above: Performed By: #### 5 7021-8 ####BHANU Treviño ([id number])[facility] ([facility])[address]26 [place] [address] Neutrophils (Bld) [#/Vol] 3.41 x10*3/uL Normal 1.20-7.70 [facility] Comment on above: Result Comment: Perc ent differential counts (%) should be interpreted in the context of the absolute cell counts (cells/uL). Performed By: #### 5 7021-8 ####BHANU Treviño ([id number])[facility] ([facility])[address]376 [place] [address] Neutrophils/100 WBC (Bld) 61.5 % Normal 40.0-80.0 [facility] Comment on above: Performed By: #### 5 7021-8 ####BHANU Treviño ([id number])[facility] ([facility])94992 [place] [address] Nucleated RBC/100 WBC (Bld) [Ratio] 0.0 /100 WBCs Normal 0.0-0.0 [facility] Comment on above: Performed By: #### 5 7021-8 ####BHANU Treviño ([id number])[facility] ([facility])83991 [place] [address] Platelets (Bld) [#/Vol] 347 x10*3/uL Normal 150-450 [facility] Comment on above: Performed By: #### 5 7021-8 ####BHANU Treviño ([id number])[facility] ([facility])79498 [place] [address] RBC (Bld) [#/Vol] 3.97 x10*6/uL Low 4.50-5.90 [facility] Comment on above: Performed By: #### 5 7021-8 ####BHANU Treviño ([id number])[facility] ([facility])[id number] [place] [address] 04349 WBC (Bld) [#/Vol] 5.5 x10*3/uL Normal 4.4-11.3 [facility] Comment on above: Performed By: #### 5 7021-8 ####BHANU Treviño ([id number])[facility] ([facility])[address] [place] [address] 78478 Glucose Test strip manual (B ld) [Mass/Vol]on 02-02-2025 Glucose [Mass/Vol] 94 mg/dL Normal 74-99 [facility] Comment on above: Performed By: #### 2 341-6 ####BHANU Treviño ([id number])[facility] ([facility])[address] [place] [address] 89389 Glucose [Mass/Vol] 107 mg/dL High 74-99 [facility] Comment on above: Performed By: #### 2 341-6 ####BHANU Treviño ([id number])[facility] ([facility])[address] [place] [address] 36352 Prealbuminon 02-02-2025 Prealbumin [Mass/Vol] 7.5 mg/dL Low 18.0-40.0 [facility] Comment on above: Performed By: #### 1 4338-8 ####BHANU Treviño ([id number])[facility] ([facility])[address] [place] [address] 27274 Renal function 2000 panelon 02-02-2025 Albumin BCP dye [Mass/Vol] 2.4 g/dL Low 3.4-5.0 [facility] Comment on above: Performed By: #### 2 4362-6 ####BHANU Treviño ([id number])[facility] ([facility])[address] [place] [address] 49955 Anion gap [Moles/Vol] 12 mmol/L Normal 10-20 [facility] Comment on above: Performed By: #### 2 4362-6 ####BHANU LAUREANOTZER L ([id number])[facility] ([facility])[address]28 [place] [address] Calcium [Mass/Vol] 7.9 mg/dL Low 8.6-10.6 [facility] Comment on above: Performed By: #### 2 4362-6 ####BHANU FLEMINGMOTZER L ([id number])[facility] ([facility])06041 [place] [address] Chloride [Moles/Vol] 107 mmol/L Normal 98-107 [facility] Comment on above: Performed By: #### 2 4362-6 ####BHANU GREGORY L ([id number])[facility] ([facility])85642 [place] [address] CO2 [Moles/Vol] 28 mmol/L Normal 21-32 [facility] Comment on above: Performed By: #### 2 4362-6 ####BHANU GREGORY L ([id number])[facility] ([facility])74160 [place] [address] Creatinine [Mass/Vol] 1.19 mg/dL Normal 0.50-1.30 [facility] Comment on above: Performed By: #### 2 4362-6 ####BHANU LAUREANOTZER L ([id number])[facility] ([facility])[address]97 [place] [address] Glomerular filtration rate/1.73 sq M.predicted 74 mL/min/1.73m*2 Normal >60 [facility] Comment on above: Result Comment: Calc ulations of estimated GFR are performed using the 2020 CKD-EPI Study Refit equation without the race variable for the IDMS-Traceable creatinine methods.https://jasn.asnjournals.org/content/ /ASN.1785083473 Performed By: #### 2 4362-6 ####BHANU LAUREANOTZALANNA L ([id number])[facility] ([facility])[address]141 [place] [address] Glucose [Mass/Vol] 85 mg/dL Normal 74-99 [facility] Comment on above: Performed By: #### 2 4362-6 ####BHANU Treviño ([id number])[facility] ([facility])[address]50 [place] [address] Phosphate [Mass/Vol] 2.8 mg/dL Normal 2.5-4.9 [facility] Comment on above: Performed By: #### 2 4362-6 ####BHANU Treviño ([id number])[facility] ([facility])[address]34 [place] [address] Potassium [Moles/Vol] 4.6 mmol/L Normal 3.5-5.3 [facility] Comment on above: Performed By: #### 2 4362-6 ####BHANU Treviño (66602)[facility] ([facility])93125 [place] [address] Sodium [Moles/Vol] 142 mmol/L Normal 136-145 [facility] Comment on above: Performed By: #### 2 4362-6 ####BHANU Treviño ([id number])[facility] ([facility])[address]409 [place] [address] Urea nitrogen [Mass/Vol] 15 mg/dL Normal 6-23 [facility] Comment on above: Performed By: #### 2 4362-6 ####BHANU Treviño ([id number])[facility] ([facility])[address]52 [place] [address] Basic metabolic 2000 panelon 02-01-2025 Anion gap [Moles/Vol] 13 mmol/L Normal 10-20 [facility] Comment on above: Performed By: #### 2 4321-2 ####BHANU Treviño (62586)[facility] ([facility])[address]77 [place] [address] Calcium [Mass/Vol] 7.9 mg/dL Low 8.6-10.6 [facility] Comment on above: Performed By: #### 2 4321-2 ####BHANU Treviño ([id number])[facility] ([facility])28740 [place] [address] Chloride [Moles/Vol] 106 mmol/L Normal 98-107 [facility] Comment on above: Performed By: #### 2 4321-2 ####BHANU GREGORY L ([id number])[facility] ([facility])[address]156 [place] [address] CO2 [Moles/Vol] 29 mmol/L Normal 21-32 [facility] Comment on above: Performed By: #### 2 4321-2 ####BHANU Treviño ([id number])[facility] ([facility])94154 [place] [address] Creatinine [Mass/Vol] 1.35 mg/dL High 0.50-1.30 [facility] Comment on above: Performed By: #### 2 4321-2 ####BHANU Treviño (93619)[facility] ([facility])[address]77 [place] [address] Glomerular filtration rate/1.73 sq M.predicted 64 mL/min/1.73m*2 Normal >60 [facility] Comment on above: Result Comment: Calc ulations of estimated GFR are performed using the 2020 CKD-EPI Study Refit equation without the race variable for the IDMS-Traceable creatinine methods.https://jasn.asnjournals.org/content/early/ /ASN.6640569140 Performed By: #### 2 4321-2 ####BHANU Treviño ([id number])[facility] ([facility])67953 [place] [address] Glucose [Mass/Vol] 81 mg/dL Normal 74-99 [facility] Comment on above: Performed By: #### 2 4321-2 ####BHANU Treviño (55470)[facility] ([facility])[address]010 [facility] [place] [address] Potassium [Moles/Vol] 4.5 mmol/L Normal 3.5-5.3 [facility] Comment on above: Performed By: #### 2 4321-2 ####BHANU Treviño (49060)[facility] ([facility])[address]69 [facility] [place] [address] Sodium [Moles/Vol] 143 mmol/L Normal 136-145 [facility] Comment on above: Performed By: #### 2 4321-2 ####BHANU Treviño ([id number])[facility] ([facility])50990 [place] [address] Urea nitrogen [Mass/Vol] 15 mg/dL Normal 6-23 [facility] Comment on above: Performed By: #### 2 4321-2 ####BAHNU Treviño ([id number])[facility] ([facility])[address]197 [place] [address] Blood type and Indirect anti body screen panel (Bld)on 02-01-2025 ABO group Nom (Bld) A Normal [facility] Comment on above: Performed By: #### 3 4532-2 ####BHANU Treviño ([id number])[facility] ([facility])[address]64 [facility] [place] [address] Blood group antibody screen Ql Negative [facility] Comment on above: Performed By: #### 3 4532-2 ####BHANU Treviño (63973)[facility] ([facility])[address]996 [facility] [place] [address] D Ag Ql (Bld) Positive [facility] Comment on above: Performed By: #### 3 4532-2 ####BHANU Treviño ([id number])[facility] ([facility])8[address]99 [facility] [place] [address] CBC panel Auto (Bld)on 02-01 Erythrocyte distribution width (RBC) [Ratio] 19.1 % High 11.5-14.5 [facility] Comment on above: Performed By: #### 5 8410-2 ####BHANU Treviño ([id number])[facility] ([facility])[address] [place] [address] 98063 Hematocrit (Bld) [Volume fraction] 25.0 % Low 41.0-52.0 [facility] Comment on above: Performed By: #### 5 8410-2 ####BHANU Treviño ([id number])[facility] ([facility])[address] [place] [address] 00731 Hemoglobin (Bld) [Mass/Vol] 8.0 g/dL Low 13.5-17.5 [facility] Comment on above: Performed By: #### 5 8410-2 ####BHANU Treviño (26299)[facility] ([facility])[address] [place] [address] 10855 MCH (RBC) [Entitic mass] 25.2 pg Low 26.0-34.0 [facility] Comment on above: Performed By: #### 5 8410-2 ####BHANU Treviño (33024)[facility] ([facility])[address] [place] [address] 14673 MCHC (RBC) [Mass/Vol] 32.0 g/dL Normal 32.0-36.0 [facility] Comment on above: Performed By: #### 5 8410-2 ####BHANU Treviño ([id number])[facility] ([facility])[address] [place] [address] 72013 MCV (RBC) [Entitic vol] 79 fL Low 80-100 U [facility] Comment on above: Performed By: #### 5 8410-2 ####BHANU Treviño (49403)[facility] ([facility])[address] [place] [address] 12352 Nucleated RBC/100 WBC (Bld) [Ratio] 0.0 /100 WBCs Normal 0.0-0.0 [facility] Comment on above: Performed By: #### 5 8410-2 ####BHANU Treviño (87191)[facility] ([facility])15569 [place] [address] Platelets (Bld) [#/Vol] 433 x10*3/uL Normal 150-450 [facility] Comment on above: Performed By: #### 5 8410-2 ####BHANU Treviño (22852)[facility] ([facility])14570 [place] [address] RBC (Bld) [#/Vol] 3.18 x10*6/uL Low 4.50-5.90 [facility] Comment on above: Performed By: #### 5 8410-2 ####BHANU Treviño (33530)[facility] ([facility])02819 [place] [address] WBC (Bld) [#/Vol] 6.9 x10*3/uL Normal 4.4-11.3 [facility] Comment on above: Performed By: #### 5 8410-2 ####BHANU Treviño (92071)[facility] ([facility])12466 [place] [address] Glucose Test strip manual (B ld) [Mass/Vol]on 02-01-2025 Glucose [Mass/Vol] 98 mg/dL Normal 74-99 [facility] Comment on above: Performed By: #### 2 341-6 ####BHANU Treviño ([id number])[facility] ([facility])70066 [place] [address] Glucose [Mass/Vol] 127 mg/dL High 74-99 [facility] Comment on above: Performed By: #### 2 341-6 ####BHANU Treviño ([id number])[facility] ([facility])96132 [place] [address] Glucose [Mass/Vol] 110 mg/dL High 74-99 [facility] Comment on above: Performed By: #### 2 341-6 ####BHANU Treviño ([id number])[facility] ([facility])19790 [place] [address] CBC W Auto Differential pane l (Bld)on 01-31-2025 Basophils (Bld) [#/Vol] 0.04 x10*3/uL Normal 0.00-0.10 [facility] Comment on above: Performed By: #### 5 7021-8 ####BHANU Treviño (39230)[facility] ([facility])72533 [place] [address] Basophils/100 WBC (Bld) 0.5 % Normal 0.0-2.0 [facility] Comment on above: Performed By: #### 5 7021-8 ####BHANU Treviño (78002)[facility] ([facility])[address] [place] [address] 87566 Eosinophils (Bld) [#/Vol] 0.01 x10*3/uL Normal 0.00-0.70 [facility] Comment on above: Performed By: #### 5 7021-8 ####BHANU Treviño (43872)[facility] ([facility])06778 [place] [address] Eosinophils/100 WBC (Bld) 0.1 % Normal 0.0-6.0 [facility] Comment on above: Performed By: #### 5 7021-8 ####BHANU Treviño (31996)[facility] ([facility])[address] [place] [address] 44391 Erythrocyte distribution width (RBC) [Ratio] 19.6 % High 11.5-14.5 [facility] Comment on above: Performed By: #### 5 7021-8 ####BHANU Treviño (03958)[facility] ([facility])46896 [place] [address] Hematocrit (Bld) [Volume fraction] 21.9 % Low 41.0-52.0 [facility] Comment on above: Performed By: #### 5 7021-8 ####BHANU Treviño ([id number])[facility] ([facility])80764 [place] [address] Hemoglobin (Bld) [Mass/Vol] 7.1 g/dL Low 13.5-17.5 [facility] Comment on above: Performed By: #### 5 7021-8 ####BHANU Treviño (95676)[facility] ([facility])68241 [place] [address] Immature granulocytes (Bld) [#/Vol] 0.06 x10*3/uL Normal 0.00-0.70 [facility] Comment on above: Performed By: #### 5 7021-8 ####BHANU Treviño (26445)[facility] ([facility])25619 [place] [address] Immature granulocytes/100 WBC (Bld) 0.7 % Normal 0.0-0.9 [facility] Comment on above: Result Comment: Christine ture Granulocyte Count (IG) includes promyelocytes, myelocytes and metamyelocytes but does not include bands. Percent differential counts (%) should be interpreted in the context of the absolute cell counts (cells/UL). Performed By: #### 5 7021-8 ####BHANU Treviño (26666)[facility] ([facility])21775 [place] [address] Lymphocytes (Bld) [#/Vol] 1.27 x10*3/uL Normal 1.20-4.80 [facility] Comment on above: Performed By: #### 5 7021-8 ####BHANU Treviño (35476)[facility] ([facility])67673 [place] [address] Lymphocytes/100 WBC (Bld) 14.6 % Normal 13.0-44.0 [facility] Comment on above: Performed By: #### 5 7021-8 ####BHANU Treviño (04234)[facility] ([facility])40406 [place] [address] MCH (RBC) [Entitic mass] 24.1 pg Low 26.0-34.0 [facility] Comment on above: Performed By: #### 5 7021-8 ####BHANU Treviño (54259)[facility] ([facility])15081 [place] [address] MCHC (RBC) [Mass/Vol] 32.4 g/dL Normal 32.0-36.0 [facility] Comment on above: Performed By: #### 5 7021-8 ####BHANU Treviño ([id number])[facility] ([facility])46480 [place] [address] MCV (RBC) [Entitic vol] 75 fL Low 80-100 U [facility] Comment on above: Performed By: #### 5 7021-8 ####BHANU Treviño ([id number])[facility] ([facility])[address] [place] [address] 37842 Monocytes (Bld) [#/Vol] 0.94 x10*3/uL Normal 0.10-1.00 [facility] Comment on above: Performed By: #### 5 7021-8 ####BHANU Treviño ([id number])[facility] ([facility])[address]11 [place] [address] Monocytes/100 WBC (Bld) 10.8 % Normal 2.0-10.0 [facility] Comment on above: Performed By: #### 5 7021-8 ####BHANU Treviño (33866)[facility] ([facility])[address] [place] [address] 62781 Neutrophils (Bld) [#/Vol] 6.39 x10*3/uL Normal 1.20-7.70 [facility] Comment on above: Result Comment: Perc ent differential counts (%) should be interpreted in the context of the absolute cell counts (cells/uL). Performed By: #### 5 7021-8 ####BHANU Treviño ([id number])[facility] ([facility])68264 [place] [address] Neutrophils/100 WBC (Bld) 73.3 % Normal 40.0-80.0 [facility] Comment on above: Performed By: #### 5 7021-8 ####BHANU Treviño ([id number])[facility] ([facility])[address] [place] [address] 34349 Nucleated RBC/100 WBC (Bld) [Ratio] 0.0 /100 WBCs Normal 0.0-0.0 [facility] Comment on above: Performed By: #### 5 7021-8 ####BHANU Treviño (46721)[facility] ([facility])[address] [place] [address] 35013 Platelets (Bld) [#/Vol] 455 x10*3/uL High 150-450 [facility] Comment on above: Performed By: #### 5 7021-8 ####BHANU Treviño ([id number])[facility] ([facility])[address] [place] [address] 31712 RBC (Bld) [#/Vol] 2.94 x10*6/uL Low 4.50-5.90 [facility] Comment on above: Performed By: #### 5 7021-8 ####BHANU Treviño ([id number])[facility] ([facility])[address] [place] [address] 33441 WBC (Bld) [#/Vol] 8.7 x10*3/uL Normal 4.4-11.3 [facility] Comment on above: Performed By: #### 5 7021-8 ####BHANU Treviño (31742)[facility] ([facility])[address] [place] [address] 38837 Glucose Test strip manual (B ld) [Mass/Vol]on 01-31-2025 Glucose [Mass/Vol] 97 mg/dL Normal 74-99 [facility] Comment on above: Performed By: #### 2 341-6 ####BHANU Treviño (25384)[facility] ([facility])[address] [place] [address] 14681 Glucose [Mass/Vol] 107 mg/dL High 74-99 [facility] Comment on above: Performed By: #### 2 341-6 ####BHANU Treviño (38929)[facility] ([facility])[address]109 [place] [address] Magnesiumon 01-31-2025 Magnesium [Mass/Vol] 2.07 mg/dL Normal 1.60-2.40 [facility] Comment on above: Performed By: #### 1 9123-9 ####BHANU Treviño (43250)[facility] ([facility])67317 [place] [address] Renal function 2000 panelon 01-31-2025 Albumin BCP dye [Mass/Vol] 2.6 g/dL Low 3.4-5.0 [facility] Comment on above: Performed By: #### 2 4362-6 ####BHANU Treviño (46913)[facility] ([facility])52663 [place] [address] Anion gap [Moles/Vol] 13 mmol/L Normal 10-20 [facility] Comment on above: Performed By: #### 2 4362-6 ####BHANU Treviño (02375)[facility] ([facility])77952 [place] [address] Calcium [Mass/Vol] 8.2 mg/dL Low 8.6-10.6 [facility] Comment on above: Performed By: #### 2 4362-6 ####BHANU Treviño (69140)[facility] ([facility])[address]1973 [place] [address] Chloride [Moles/Vol] 102 mmol/L Normal 98-107 [facility] Comment on above: Performed By: #### 2 4362-6 ####BHANU Treviño ([id number])[facility] ([facility])[address]8435 [place] [address] CO2 [Moles/Vol] 29 mmol/L Normal 21-32 [facility] Comment on above: Performed By: #### 2 4362-6 ####BHANU Treviño ([id number])[facility] ([facility])19355 [place] [address] Creatinine [Mass/Vol] 1.04 mg/dL Normal 0.50-1.30 [facility] Comment on above: Performed By: #### 2 4362-6 ####BHANU Treviño (55782)[facility] ([facility])[address]102 [place] [address] Glomerular filtration rate/1.73 sq M.predicted 87 mL/min/1.73m*2 Normal >60 [facility] Comment on above: Result Comment: Calc ulations of estimated GFR are performed using the 2020 CKD-EPI Study Refit equation without the race variable for the IDMS-Traceable creatinine methods.https://jasn.asnjournals.org/content/ /ASN.9967024999 Performed By: #### 2 4362-6 ####BHANU Treviño ([id number])[facility] ([facility])[id number] [place] [address] Glucose [Mass/Vol] 104 mg/dL High 74-99 [facility] Comment on above: Performed By: #### 2 4362-6 ####BHANU Treviño ([id number])[facility] ([facility])[address] [place] [address] Phosphate [Mass/Vol] 3.6 mg/dL Normal 2.5-4.9 [facility] Comment on above: Performed By: #### 2 4362-6 ####BHANU Treviño ([id number])[facility] ([facility])[address] [place] [address] Potassium [Moles/Vol] 4.4 mmol/L Normal 3.5-5.3 [facility] Comment on above: Performed By: #### 2 4362-6 ####BHANU Treviño ([id number])[facility] ([facility])[address] [place] [address] Sodium [Moles/Vol] 140 mmol/L Normal 136-145 [facility] Comment on above: Performed By: #### 2 4362-6 ####BHANU Treviño ([id number])[facility] ([facility])[id number] [place] [address] Urea nitrogen [Mass/Vol] 12 mg/dL Normal 6-23 [facility] Comment on above: Performed By: #### 2 4362-6 ####BHANU Treviño ([id number])[facility] ([facility])[id number] [place] [id number] Bacteria identifiedon 2024 Bacteria identified Cx Nom (Unsp spec) Abnormal [facility] Comment on above: Performed By: #### 6 463-4 ####BHANU Treviño ([id number])[facility] ([facility])[id number] [place] [id number] Bacteria identified Cx Nom (Unsp spec) Abnormal [facility] Comment on above: Performed By: #### 6 463-4 ####BHANU Treviño ([id number])[facility] ([facility])[address] [place] [address] CBC W Auto Differential pane l (Bld)on 01-30-2025 Basophils (Bld) [#/Vol] 0.05 x10*3/uL Normal 0.00-0.10 [facility] Comment on above: Performed By: #### 5 7021-8 ####BHANU Treviño ([id number])[facility] ([facility])[id number] [place] [address] 47301 Basophils/100 WBC (Bld) 0.7 % Normal 0.0-2.0 [facility] Comment on above: Performed By: #### 5 7021-8 ####BHANU Treviño ([id number])[facility] ([facility])[address] [place] [address] 84719 Eosinophils (Bld) [#/Vol] 0.14 x10*3/uL Normal 0.00-0.70 [facility] Comment on above: Performed By: #### 5 7021-8 ####BHANU Treviño ([id number])[facility] ([facility])[address] [place] [address] 13641 Eosinophils/100 WBC (Bld) 2.0 % Normal 0.0-6.0 [facility] Comment on above: Performed By: #### 5 7021-8 ####BHANU Treviño ([id number])[facility] ([facility])[address] [place] [address] 23377 Erythrocyte distribution width (RBC) [Ratio] 19.9 % High 11.5-14.5 [facility] Comment on above: Performed By: #### 5 7021-8 ####BHANU Treviño ([id number])[facility] ([facility])[address] [place] [address] 26436 Hematocrit (Bld) [Volume fraction] 26.3 % Low 41.0-52.0 [facility] Comment on above: Performed By: #### 5 7021-8 ####BHANU Treviño ([id number])[facility] ([facility])[address] [place] [address] 77066 Hemoglobin (Bld) [Mass/Vol] 8.3 g/dL Low 13.5-17.5 [facility] Comment on above: Performed By: #### 5 7021-8 ####BHANU Treviño ([id number])[facility] ([facility])[address] [place] [address] 74333 Immature granulocytes (Bld) [#/Vol] 0.02 x10*3/uL Normal 0.00-0.70 [facility] Comment on above: Performed By: #### 5 7021-8 ####BHANU Treviño ([id number])[facility] ([facility])[address] [place] [address] 14433 Immature granulocytes/100 WBC (Bld) 0.3 % Normal 0.0-0.9 [facility] Comment on above: Result Comment: Christine ture Granulocyte Count (IG) includes promyelocytes, myelocytes and metamyelocytes but does not include bands. Percent differential counts (%) should be interpreted in the context of the absolute cell counts (cells/UL). Performed By: #### 5 7021-8 ####BHANU Treviño ([id number])[facility] ([facility])[address] [place] [address] Lymphocytes (Bld) [#/Vol] 1.09 x10*3/uL Low 1.20-4.80 [facility] Comment on above: Performed By: #### 5 7021-8 ####BHANU Treviño ([id number])[facility] ([facility])[address]27 [place] [address] Lymphocytes/100 WBC (Bld) 15.4 % Normal 13.0-44.0 [facility] Comment on above: Performed By: #### 5 7021-8 ####BHANU Treviño ([id number])[facility] ([facility])[address] [place] [address] MCH (RBC) [Entitic mass] 24.1 pg Low 26.0-34.0 [facility] Comment on above: Performed By: #### 5 7021-8 ####BHANU Treviño ([id number])[facility] ([facility])[address] [place] [address] MCHC (RBC) [Mass/Vol] 31.6 g/dL Low 32.0-36.0 [facility] Comment on above: Performed By: #### 5 7021-8 ####BHANU Treviño ([id number])[facility] ([facility])[address]84 [place] [address] MCV (RBC) [Entitic vol] 76 fL Low 80-100 U [facility] Comment on above: Performed By: #### 5 7021-8 ####BHANU Treviño ([id number])[facility] ([facility])[address]397 [place] [address] Monocytes (Bld) [#/Vol] 0.89 x10*3/uL Normal 0.10-1.00 [facility] Comment on above: Performed By: #### 5 7021-8 ####BHANU Treviño ([id number])[facility] ([facility])[address]011 [place] [address] Monocytes/100 WBC (Bld) 12.6 % Normal 2.0-10.0 [facility] Comment on above: Performed By: #### 5 7021-8 ####BHANU Treviño ([id number])[facility] ([facility])[address]310 [place] [address] Neutrophils (Bld) [#/Vol] 4.87 x10*3/uL Normal 1.20-7.70 [facility] Comment on above: Result Comment: Perc ent differential counts (%) should be interpreted in the context of the absolute cell counts (cells/uL). Performed By: #### 5 7021-8 ####BHANU GREGORY L ([id number])[facility] ([facility])[address]678 [place] [address] Neutrophils/100 WBC (Bld) 69.0 % Normal 40.0-80.0 [facility] Comment on above: Performed By: #### 5 7021-8 ####BHANU Treviño (79552)[facility] ([facility])[address]05 [place] [address] Nucleated RBC/100 WBC (Bld) [Ratio] 0.0 /100 WBCs Normal 0.0-0.0 [facility] Comment on above: Performed By: #### 5 7021-8 ####BHANU GREGORY L ([id number])[facility] ([facility])[address]32 [place] [address] Platelets (Bld) [#/Vol] 492 x10*3/uL High 150-450 [facility] Comment on above: Performed By: #### 5 7021-8 ####BHANU GREGORY L ([id number])[facility] ([facility])[address]237 [place] [address] RBC (Bld) [#/Vol] 3.45 x10*6/uL Low 4.50-5.90 [facility] Comment on above: Performed By: #### 5 7021-8 ####BHANU Treviño ([id number])[facility] ([facility])[address]72 [place] [address] WBC (Bld) [#/Vol] 7.1 x10*3/uL Normal 4.4-11.3 [facility] Comment on above: Performed By: #### 5 7021-8 ####BHANU Treviño ([id number])[facility] ([facility])[address]004 [place] [address] Comprehensive metabolic 2000 panelon 01-30-2025 Albumin BCP dye [Mass/Vol] 2.3 g/dL Low 3.4-5.0 [facility] Comment on above: Performed By: #### 2 4323-8 ####BHANU Treviño ([id number])[facility] ([facility])[address]805 [place] [address] ALP [Catalytic activity/Vol] 80 U/L Normal 33-120 [facility] Comment on above: Performed By: #### 2 4323-8 ####BHANU Treviño ([id number])[facility] ([facility])[address]10 [place] [address] ALT With P-5'-P [Catalytic activity/Vol] 29 U/L Normal 10-52 [facility] Comment on above: Result Comment: Sydni ents treated with Sulfasalazine may generate falsely decreased results for ALT. Performed By: #### 2 4323-8 ####BHANU Treviño (65459)[facility] ([facility])[address]78 [place] [address] Anion gap [Moles/Vol] 13 mmol/L Normal 10-20 [facility] Comment on above: Performed By: #### 2 4323-8 ####BHANU Treviño (78126)[facility] ([facility])[address] [facility] [place] [address] AST With P-5'-P [Catalytic activity/Vol] 33 U/L Normal 9-39 [facility] Comment on above: Performed By: #### 2 4323-8 ####BHANU Treviño ([id number])[facility] ([facility])[address] [facility] [place] [address] Bilirubin [Mass/Vol] 0.4 mg/dL Normal 0.0-1.2 [facility] Comment on above: Performed By: #### 2 432-8 ####BHANU Treviño ([id number])[facility] ([facility])[address]62 [place] [address] Calcium [Mass/Vol] 8.4 mg/dL Low 8.6-10.6 [facility] Comment on above: Performed By: #### 2 432-8 ####BHANU Treviño (77803)[facility] ([facility])[address] [place] [address] Chloride [Moles/Vol] 102 mmol/L Normal 98-107 [facility] Comment on above: Performed By: #### 2 4323-8 ####BHANU Treviño (74800)[facility] ([facility])[address]12 [place] [address] CO2 [Moles/Vol] 29 mmol/L Normal 21-32 [facility] Comment on above: Performed By: #### 2 4323-8 ####BHANU Treviño ([id number])[facility] ([facility])[address]88 [place] [address] Creatinine [Mass/Vol] 1.06 mg/dL Normal 0.50-1.30 [facility] Comment on above: Performed By: #### 2 4323-8 ####BHANU Treviño ([id number])[facility] ([facility])[address]852 [facility] [place] [address] Glomerular filtration rate/1.73 sq M.predicted 85 mL/min/1.73m*2 Normal >60 [facility] Comment on above: Result Comment: Calc ulations of estimated GFR are performed using the 2020 CKD-EPI Study Refit equation without the race variable for the IDMS-Traceable creatinine methods.https://jasn.asnjournals.org/content/ /ASN.4020339519 Performed By: #### 2 4323-8 ####BHANU Treviño ([id number])[facility] ([facility])[address]26 [place] [address] Glucose [Mass/Vol] 91 mg/dL Normal 74-99 [facility] Comment on above: Performed By: #### 2 4323-8 ####BHANU Treviño ([id number])[facility] ([facility])[address]169 [place] [address] Potassium [Moles/Vol] 4.5 mmol/L Normal 3.5-5.3 [facility] Comment on above: Performed By: #### 2 4323-8 ####BHANU Treviño (46014)[facility] ([facility])[address]27 [place] [address] Protein [Mass/Vol] 6.1 g/dL Low 6.4-8.2 [facility] Comment on above: Performed By: #### 2 4323-8 ####BHANU GREGORY L (05564)[facility] ([facility])[address]98 [place] [address] Sodium [Moles/Vol] 139 mmol/L Normal 136-145 [facility] Comment on above: Performed By: #### 2 4323-8 ####BHANU GREGORY L ([id number])[facility] ([facility])[address]32 [place] [address] Urea nitrogen [Mass/Vol] 11 mg/dL Normal 6-23 [facility] Comment on above: Performed By: #### 2 4323-8 ####BHANU Treviño ([id number])[facility] ([facility])[address]64 [place] [address] Fungus identifiedon 01-31-20 Fungus identified Cx Nom (Unsp spec) [facility] Comment on above: Performed By: #### 5 80-1 ####BHANU Treviño ([id number])[facility] ([facility])[address] [place] [address] 23483 Fungus identified Cx Nom (Unsp spec) [facility] Comment on above: Performed By: #### 5 80-1 ####BHANU Treviño ([id number])[facility] ([facility])[address] [place] [address] 23975 Glucose Test strip manual (B ld) [Mass/Vol]on 01-30-2025 Glucose [Mass/Vol] 129 mg/dL High 74-99 [facility] Comment on above: Performed By: #### 2 341-6 ####BHANU Treviño ([id number])[facility] ([facility])[address] [place] [address] 27341 Magnesiumon 01-30-2025 Magnesium [Mass/Vol] 2.05 mg/dL Normal 1.60-2.40 [facility] Comment on above: Performed By: #### 1 9123-9 ####BHANU Treviño ([id number])[facility] ([facility])[address] [place] [address]49 Surgical pathology studyon 0 01-30-2025 Surgical pathology study [facility] Comment on above: Order Comment: Pre-o p diagnosis:Hidradenitis suppurativa [L73.2]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] Blood type and Indirect anti body screen panel (Bld)on 01-29-2025 ABO group Nom (Bld) A Normal [facility] Comment on above: Performed By: #### 3 4532-2 ####BHANU Treviño ([id number])[facility] ([facility] [place] [address] Blood group antibody screen Ql Negative [facility] Comment on above: Performed By: #### 3 4532-2 ####BHANU Treviño ([id number])[facility] ([facility])[address] [place] [address] D Ag Ql (Bld) Positive [facility] Comment on above: Performed By: #### 3 4532-2 ####BHANU Treviño ([id number])[facility] ([facility])[address]26 [place] [address] CBC W Auto Differential pane l (Bld)on 01-29-2025 Basophils (Bld) [#/Vol] 0.07 x10*3/uL Normal 0.00-0.10 [facility] Comment on above: Performed By: #### 5 7021-8 ####BHANU Treviño ([id number])[facility] ([facility])[address]371 [place] [address] Basophils/100 WBC (Bld) 0.9 % Normal 0.0-2.0 [facility] Comment on above: Performed By: #### 5 7021-8 ####BHANU Treviño ([id number])[facility] ([facility])[address] [place] [address] 84984 Eosinophils (Bld) [#/Vol] 0.16 x10*3/uL Normal 0.00-0.70 [facility] Comment on above: Performed By: #### 5 7021-8 ####BHANU Treviño ([id number])[facility] ([facility])10640 [place] [address] Eosinophils/100 WBC (Bld) 2.0 % Normal 0.0-6.0 [facility] Comment on above: Performed By: #### 5 7021-8 ####BHANU Treviño ([id number])[facility] ([facility])[address]95 [place] [address] Erythrocyte distribution width (RBC) [Ratio] 20.0 % High 11.5-14.5 [facility] Comment on above: Performed By: #### 5 7021-8 ####BHANU Treviño (92607)[facility] ([facility])[address] [place] [address] 38527 Hematocrit (Bld) [Volume fraction] 29.4 % Low 41.0-52.0 [facility] Comment on above: Performed By: #### 5 7021-8 ####BHANU GREGORY L (80883)[facility] ([facility])[address] [place] [address] 15051 Hemoglobin (Bld) [Mass/Vol] 8.8 g/dL Low 13.5-17.5 [facility] Comment on above: Performed By: #### 5 7021-8 ####BHANU Treviño (35872)[facility] ([facility])[address] [place] [address] 56996 Immature granulocytes (Bld) [#/Vol] 0.03 x10*3/uL Normal 0.00-0.70 [facility] Comment on above: Performed By: #### 5 7021-8 ####BHANU Treviño ([id number])[facility] ([facility])[address] [place] [address] 17393 Immature granulocytes/100 WBC (Bld) 0.4 % Normal 0.0-0.9 [facility] Comment on above: Result Comment: Christine ture Granulocyte Count (IG) includes promyelocytes, myelocytes and metamyelocytes but does not include bands. Percent differential counts (%) should be interpreted in the context of the absolute cell counts (cells/UL). Performed By: #### 5 7021-8 ####BHANU Treviño ([id number])[facility] ([facility])[address] [place] [address] 01869 Lymphocytes (Bld) [#/Vol] 1.25 x10*3/uL Normal 1.20-4.80 [facility] Comment on above: Performed By: #### 5 7021-8 ####BHANU Trveiño (93974)[facility] ([facility])[address]37 [place] [address] Lymphocytes/100 WBC (Bld) 15.7 % Normal 13.0-44.0 [facility] Comment on above: Performed By: #### 5 7021-8 ####BHANU Treviño (54303)[facility] ([facility])[address]18 [place] [address] MCH (RBC) [Entitic mass] 23.7 pg Low 26.0-34.0 [facility] Comment on above: Performed By: #### 5 7021-8 ####BHANU Treviño (75145)[facility] ([facility])[address]204 [place] [address] MCHC (RBC) [Mass/Vol] 29.9 g/dL Low 32.0-36.0 [facility] Comment on above: Performed By: #### 5 7021-8 ####BHANU Treviño ([id number])[facility] ([facility])[address]381 [place] [address] MCV (RBC) [Entitic vol] 79 fL Low 80-100 U [facility] Comment on above: Performed By: #### 5 7021-8 ####BHANU Treviño ([id number])[facility] ([facility])[address] [place] [address] 09292 Monocytes (Bld) [#/Vol] 0.98 x10*3/uL Normal 0.10-1.00 [facility] Comment on above: Performed By: #### 5 7021-8 ####BHANU Treviño (37605)[facility] ([facility])[address]90 [place] [address] Monocytes/100 WBC (Bld) 12.3 % Normal 2.0-10.0 U [facility] Comment on above: Performed By: #### 5 7021-8 ####BHANU Treviño ([id number])[facility] ([facility])[address]194 [place] [address] Neutrophils (Bld) [#/Vol] 5.45 x10*3/uL Normal 1.20-7.70 [facility] Comment on above: Result Comment: Perc ent differential counts (%) should be interpreted in the context of the absolute cell counts (cells/uL). Performed By: #### 5 7021-8 ####BHANU Treviño (73505)[facility] ([facility])[address]12 [place] [address] Neutrophils/100 WBC (Bld) 68.7 % Normal 40.0-80.0 [facility] Comment on above: Performed By: #### 5 7021-8 ####BHANU Treviño ([id number])[facility] ([facility])[address] [place] [address] 47463 Nucleated RBC/100 WBC (Bld) [Ratio] 0.0 /100 WBCs Normal 0.0-0.0 [facility] Comment on above: Performed By: #### 5 7021-8 ####BHANU Treviño (53389)[facility] ([facility])[address]34 [place] [address] Platelets (Bld) [#/Vol] 537 x10*3/uL High 150-450 [facility] Comment on above: Performed By: #### 5 7021-8 ####BHANU Treviño (70245)[facility] ([facility])[address] [place] [address] 09406 RBC (Bld) [#/Vol] 3.72 x10*6/uL Low 4.50-5.90 [facility] Comment on above: Performed By: #### 5 7021-8 ####BHANU Treviño ([id number])[facility] ([facility])[address]271 [place] [address] WBC (Bld) [#/Vol] 7.9 x10*3/uL Normal 4.4-11.3 [facility] Comment on above: Performed By: #### 5 7021-8 ####BHANU Treviño ([id number])[facility] ([facility])[address]308 [place] [address] Comprehensive metabolic 2000 panelon 01-29-2025 Albumin BCP dye [Mass/Vol] 2.4 g/dL Low 3.4-5.0 [facility] Comment on above: Performed By: #### 2 4323-8 ####BHANU Treviño ([id number])[facility] ([facility])[address]32 [place] [address] ALP [Catalytic activity/Vol] 70 U/L Normal 33-120 [facility] Comment on above: Performed By: #### 2 4323-8 ####BHANU GREGORY L (47317)[facility] ([facility])[address]70 [place] [address] ALT With P-5'-P [Catalytic activity/Vol] 28 U/L Normal 10-52 [facility] Comment on above: Result Comment: Sydni ents treated with Sulfasalazine may generate falsely decreased results for ALT. Performed By: #### 2 4323-8 ####BHANU GREGORY L ([id number])[facility] ([facility])[address]28 [place] [address] Anion gap [Moles/Vol] 11 mmol/L Normal 10-20 [facility] Comment on above: Performed By: #### 2 4323-8 ####BHANU GREGORY L ([id number])[facility] ([facility])[address]31 [place] [address] AST With P-5'-P [Catalytic activity/Vol] 28 U/L Normal 9-39 [facility] Comment on above: Performed By: #### 2 4323-8 ####BHANU GREGORY L (10734)[facility] ([facility])34684 [place] [address] Bilirubin [Mass/Vol] 0.3 mg/dL Normal 0.0-1.2 [facility] Comment on above: Performed By: #### 2 4323-8 ####BHANU GREGORY L (82457)[facility] ([facility])[address]168 [place] [address] Calcium [Mass/Vol] 8.2 mg/dL Low 8.6-10.6 [facility] Comment on above: Performed By: #### 2 4323-8 ####BHANU GREGORY L (14384)[facility] ([facility])[address]33 [place] [address] Chloride [Moles/Vol] 102 mmol/L Normal 98-107 [facility] Comment on above: Performed By: #### 2 4323-8 ####BHANU GREGORY L (38136)[facility] ([facility])[address]11 [place] [address] CO2 [Moles/Vol] 28 mmol/L Normal 21-32 [facility] Comment on above: Performed By: #### 2 4323-8 ####BHANU GREGORY L (60413)[facility] ([facility])[address]807 [place] [address] Creatinine [Mass/Vol] 1.07 mg/dL Normal 0.50-1.30 [facility] Comment on above: Performed By: #### 2 4323-8 ####BHANU FLEMINGMOTZALANNA L (35435)[facility] ([facility])[address]35 [place] [address] Glomerular filtration rate/1.73 sq M.predicted 84 mL/min/1.73m*2 Normal >60 [facility] Comment on above: Result Comment: Calc ulations of estimated GFR are performed using the 2020 CKD-EPI Study Refit equation without the race variable for the IDMS-Traceable creatinine methods.https://jasn.asnjournals.org/content/early /ASN.7776521906 Performed By: #### 2 4323-8 ####BHANU LAUREANOTZALANNA L ([id number])[facility] ([facility])[address]63 [place] [address] Glucose [Mass/Vol] 99 mg/dL Normal 74-99 [facility] Comment on above: Performed By: #### 2 4323-8 ####BHANU Treviño ([id number])[facility] ([facility])[address]98 [place] [address] Potassium [Moles/Vol] 4.2 mmol/L Normal 3.5-5.3 [facility] Comment on above: Performed By: #### 2 4323-8 ####BHANU Treviño (11031)[facility] ([facility])[address]344 [place] [address] Protein [Mass/Vol] 6.4 g/dL Normal 6.4-8.2 [facility] Comment on above: Performed By: #### 2 4323-8 ####BHANU Treviño ([id number])[facility] ([facility])[address]192 [place] [address] Sodium [Moles/Vol] 137 mmol/L Normal 136-145 [facility] Comment on above: Performed By: #### 2 4323-8 ####BHANU Treviño (53210)[facility] ([facility])[address]315 [place] [address] Urea nitrogen [Mass/Vol] 12 mg/dL Normal 6-23 [facility] Comment on above: Performed By: #### 2 4323-8 ####BHANU Treviño ([id number])[facility] ([facility])[address] [place] [address] Creatine kinaseon 01-29-2025 CK [Catalytic activity/Vol] 58 U/L Normal 0-325 [facility] Comment on above: Performed By: #### 2 157-6 ####BHANU Treviño ([id number])[facility] ([facility])[address] [place] [address] Magnesiumon 01-29-2025 Magnesium [Mass/Vol] 1.81 mg/dL Normal 1.60-2.40 [facility] Comment on above: Performed By: #### 1 9123-9 ####BHANU Treviño ([id number])[facility] ([facility])[address] [place] [address] CBC W Auto Differential pane l (Bld)on 01-28-2025 Basophils (Bld) [#/Vol] 0.07 x10*3/uL Normal 0.00-0.10 [facility] Comment on above: Performed By: #### 5 7021-8 ####BHANU Treviño ([id number])[facility] ([facility])[id number] [place] [address] Basophils/100 WBC (Bld) 1.0 % Normal 0.0-2.0 [facility] Comment on above: Performed By: #### 5 7021-8 ####BHANU Treviño ([id number])[facility] ([facility])[id number] [place] [address] Eosinophils (Bld) [#/Vol] 0.44 x10*3/uL Normal 0.00-0.70 [facility] Comment on above: Performed By: #### 5 7021-8 ####BHANU GREGORY L ([id number])[facility] ([facility])[id number] [place] [address] Eosinophils/100 WBC (Bld) 6.0 % Normal 0.0-6.0 [facility] Comment on above: Performed By: #### 5 7021-8 ####BHANU Treviño ([id number])[facility] ([facility])[address] [place] [address] Erythrocyte distribution width (RBC) [Ratio] 19.7 % High 11.5-14.5 [facility] Comment on above: Performed By: #### 5 7021-8 ####BHANU Treviño ([id number])[facility] ([facility])[address] [place] [address] Hematocrit (Bld) [Volume fraction] 26.4 % Low 41.0-52.0 [facility] Comment on above: Performed By: #### 5 7021-8 ####BHANU Treviño ([id number])[facility] ([facility])[address]187 [place] [address] Hemoglobin (Bld) [Mass/Vol] 8.5 g/dL Low 13.5-17.5 [facility] Comment on above: Performed By: #### 5 7021-8 ####BHANU Treviño ([id number])[facility] ([facility])[address]494 [place] [address] Immature granulocytes (Bld) [#/Vol] 0.04 x10*3/uL Normal 0.00-0.70 [facility] Comment on above: Performed By: #### 5 7021-8 ####BHANU Trevñio ([id number])[facility] ([facility])[address] [place] [address] Immature granulocytes/100 WBC (Bld) 0.5 % Normal 0.0-0.9 [facility] Comment on above: Result Comment: Christine ture Granulocyte Count (IG) includes promyelocytes, myelocytes and metamyelocytes but does not include bands. Percent differential counts (%) should be interpreted in the context of the absolute cell counts (cells/UL). Performed By: #### 5 7021-8 ####BHANU Treviño ([id number])[facility] ([facility])[address]63 [place] [address] Lymphocytes (Bld) [#/Vol] 1.21 x10*3/uL Normal 1.20-4.80 [facility] Comment on above: Performed By: #### 5 7021-8 ####BHANU Treviño ([id number])[facility] ([facility])[address]60 [place] [address] Lymphocytes/100 WBC (Bld) 16.4 % Normal 13.0-44.0 [facility] Comment on above: Performed By: #### 5 7021-8 ####BHANU Treviño ([id number])[facility] ([facility])[address]69 [place] [address] MCH (RBC) [Entitic mass] 24.6 pg Low 26.0-34.0 [facility] Comment on above: Performed By: #### 5 7021-8 ####BHANU Treviño ([id number])[facility] ([facility])[address]43 [place] [address] MCHC (RBC) [Mass/Vol] 32.2 g/dL Normal 32.0-36.0 [facility] Comment on above: Performed By: #### 5 7021-8 ####BHANU Treviño ([id number])[facility] ([facility])[address]01 [place] [address] MCV (RBC) [Entitic vol] 77 fL Low 80-100 U [facility] Comment on above: Performed By: #### 5 7021-8 ####BHANU Treviño ([id number])[facility] ([facility])[address] [place] [address] Monocytes (Bld) [#/Vol] 1.09 x10*3/uL High 0.10-1.00 [facility] Comment on above: Performed By: #### 5 7021-8 ####BHANU Treviño ([id number])[facility] ([facility])[address]902 [place] [address] Monocytes/100 WBC (Bld) 14.8 % Normal 2.0-10.0 [facility] Comment on above: Performed By: #### 5 7021-8 ####BHANU Treviño (85694)[facility] ([facility])[address]70 [place] [address] Neutrophils (Bld) [#/Vol] 4.51 x10*3/uL Normal 1.20-7.70 [facility] Comment on above: Result Comment: Perc ent differential counts (%) should be interpreted in the context of the absolute cell counts (cells/uL). Performed By: #### 5 7021-8 ####BHANU Treviño ([id number])[facility] ([facility])[address]23 [place] [address] Neutrophils/100 WBC (Bld) 61.3 % Normal 40.0-80.0 [facility] Comment on above: Performed By: #### 5 7021-8 ####BHANU Treviño ([id number])[facility] ([facility])[address]04 [place] [address] Nucleated RBC/100 WBC (Bld) [Ratio] 0.0 /100 WBCs Normal 0.0-0.0 [facility] Comment on above: Performed By: #### 5 7021-8 ####BHANU Treviño ([id number])[facility] ([facility])[address]34 [place] [address] Platelets (Bld) [#/Vol] 620 x10*3/uL High 150-450 [facility] Comment on above: Performed By: #### 5 7021-8 ####BHANU Treviño ([id number])[facility] ([facility])[address]40 [place] [address] RBC (Bld) [#/Vol] 3.45 x10*6/uL Low 4.50-5.90 [facility] Comment on above: Performed By: #### 5 7021-8 ####BHANU Treviño ([id number])[facility] ([facility])[address]76 [place] [address] WBC (Bld) [#/Vol] 7.4 x10*3/uL Normal 4.4-11.3 [facility] Comment on above: Performed By: #### 5 7021-8 ####BHANU Treviño ([id number])[facility] ([facility])[address]11 [place] [address] Comprehensive metabolic 2000 panelon 01-28-2025 Albumin BCP dye [Mass/Vol] 2.3 g/dL Low 3.4-5.0 [facility] Comment on above: Performed By: #### 2 4323-8 ####BHANU Treviño ([id number])[facility] ([facility])[address]99 [place] [address] ALP [Catalytic activity/Vol] 72 U/L Normal 33-120 [facility] Comment on above: Performed By: #### 2 4323-8 ####BHANU Treviño ([id number])[facility] ([facility])[address]15 [place] [address] ALT With P-5'-P [Catalytic activity/Vol] 35 U/L Normal 10-52 [facility] Comment on above: Result Comment: Sydni ents treated with Sulfasalazine may generate falsely decreased results for ALT. Performed By: #### 2 4323-8 ####BHANU Treviño ([id number])[facility] ([facility])87679 [place] [address] Anion gap [Moles/Vol] 13 mmol/L Normal 10-20 [facility] Comment on above: Performed By: #### 2 4323-8 ####BHANU Treviño ([id number])[facility] ([facility])25562 [place] [address] AST With P-5'-P [Catalytic activity/Vol] 32 U/L Normal 9-39 [facility] Comment on above: Performed By: #### 2 4323-8 ####BHANU Treviño ([id number])[facility] ([facility])[address]27 [place] [address] Bilirubin [Mass/Vol] 0.3 mg/dL Normal 0.0-1.2 [facility] Comment on above: Performed By: #### 2 4323-8 ####BHANU Treviño (12241)[facility] ([facility])[address]4744 [place] [address] Calcium [Mass/Vol] 8.0 mg/dL Low 8.6-10.6 [facility] Comment on above: Performed By: #### 2 4323-8 ####BHANU Treviño ([id number])[facility] ([facility])[address]67 [place] [address] Chloride [Moles/Vol] 102 mmol/L Normal 98-107 [facility] Comment on above: Performed By: #### 2 4323-8 ####BHANU Treviño ([id number])[facility] ([facility])[address]344 [place] [address] CO2 [Moles/Vol] 28 mmol/L Normal 21-32 [facility] Comment on above: Performed By: #### 2 4323-8 ####BHANU GREGORY L ([id number])[facility] ([facility])[address]115 [place] [address] Creatinine [Mass/Vol] 1.07 mg/dL Normal 0.50-1.30 [facility] Comment on above: Performed By: #### 2 4323-8 ####BHANU GREGORY L (08047)[facility] ([facility])[address] [place] [address]71 Glomerular filtration rate/1.73 sq M.predicted 84 mL/min/1.73m*2 Normal >60 [facility] Comment on above: Result Comment: Calc ulations of estimated GFR are performed using the 2020 CKD-EPI Study Refit equation without the race variable for the IDMS-Traceable creatinine methods.https://jasn.asnjournals.org/content/ /ASN.4812140316 Performed By: #### 2 4323-8 ####BHANU Treviño ([id number])[facility] ([facility])[address]407 [place] [address] Glucose [Mass/Vol] 113 mg/dL High 74-99 [facility] Comment on above: Performed By: #### 2 4323-8 ####BHANU GREGORY L ([id number])[facility] ([facility])[address]85 [place] [address] Potassium [Moles/Vol] 4.5 mmol/L Normal 3.5-5.3 [facility] Comment on above: Performed By: #### 2 4323-8 ####BHANU GREGORY L (46451)[facility] ([facility])64218 [place] [address] Protein [Mass/Vol] 6.0 g/dL Low 6.4-8.2 [facility] Comment on above: Performed By: #### 2 4323-8 ####BHANU Treviño ([id number])[facility] ([facility])31413 [place] [address] Sodium [Moles/Vol] 138 mmol/L Normal 136-145 [facility] Comment on above: Performed By: #### 2 4323-8 ####BHANU Treviño (67147)[facility] ([facility])29696 [place] [address] Urea nitrogen [Mass/Vol] 11 mg/dL Normal 6-23 [facility] Comment on above: Performed By: #### 2 4323-8 ####BHANU Treviño (45266)[facility] ([facility])[address] [place] [address] Lactateon 01-28-2025 Lactate [Moles/Vol] 1.4 mmol/L Normal 0.4-2.0 [facility] Comment on above: Order Comment: Venip uncture immediately after or during the administration of Metamizole may lead to falsely low results. Testing should be performed immediately prior to Metamizole dosing. Performed By: #### 2 524-7 ####BHANU Treviño ([id number])[facility] ([facility])[address] [place] [address]22[address] Magnesiumon 01-28-2025 Magnesium [Mass/Vol] 1.92 mg/dL Normal 1.60-2.40 [facility] Comment on above: Performed By: #### 1 9123-9 ####BHANU Treviño ([id number])[facility] ([facility])[address] [place] [address]368 Blood type and Indirect anti body screen panel (Bld)on 01-27-2025 ABO group Nom (Bld) A Normal [facility] Comment on above: Performed By: #### 3 4532-2 ####BHANU Treviño ([id number])[facility] ([facility])[address] [facility] [facility] [place] [address] Blood group antibody screen Ql Negative [facility] Comment on above: Performed By: #### 3 4532-2 ####BHANU Treviño (67905)[facility] ([facility])[address] [facility] [place] [address] D Ag Ql (Bld) Positive [facility] Comment on above: Performed By: #### 3 4532-2 ####BHANU Treviño (36254)[facility] ([facility])[address] [facility] [facility] [place] [address] CBC W Auto Differential pane l (Bld)on 01-27-2025 Basophils (Bld) [#/Vol] 0.08 x10*3/uL Normal 0.00-0.10 [facility] Comment on above: Performed By: #### 5 7021-8 ####BHANU Treviño (84921)[facility] ([facility])52194 [place] [address] Basophils/100 WBC (Bld) 1.1 % Normal 0.0-2.0 [facility] Comment on above: Performed By: #### 5 7021-8 ####BHANU GREGORY L (00558)[facility] ([facility])62840 [place] [address] Eosinophils (Bld) [#/Vol] 0.07 x10*3/uL Normal 0.00-0.70 [facility] Comment on above: Performed By: #### 5 7021-8 ####BHANU GREGORY L (25651)[facility] ([facility])54475 [place] [address] Eosinophils/100 WBC (Bld) 0.9 % Normal 0.0-6.0 [facility] Comment on above: Performed By: #### 5 7021-8 ####BHANU GREGORY L ([id number])[facility] ([facility])18661 [place] [address] Erythrocyte distribution width (RBC) [Ratio] 19.8 % High 11.5-14.5 [facility] Comment on above: Performed By: #### 5 7021-8 ####BHANU Treviño (91907)[facility] ([facility])26524 [place] [address] Hematocrit (Bld) [Volume fraction] 27.5 % Low 41.0-52.0 [facility] Comment on above: Performed By: #### 5 7021-8 ####BHANU Treviño (55503)[facility] ([facility])[address] [place] [address] Hemoglobin (Bld) [Mass/Vol] 8.5 g/dL Low 13.5-17.5 [facility] Comment on above: Performed By: #### 5 7021-8 ####BHANU Treviño (11076)[facility] ([facility])[address] [place] [address] 39356 Immature granulocytes (Bld) [#/Vol] 0.03 x10*3/uL Normal 0.00-0.70 [facility] Comment on above: Performed By: #### 5 7021-8 ####BHANU Treviño (46208)[facility] ([facility])[address] [place] [address] 77489 Immature granulocytes/100 WBC (Bld) 0.4 % Normal 0.0-0.9 [facility] Comment on above: Result Comment: Christine ture Granulocyte Count (IG) includes promyelocytes, myelocytes and metamyelocytes but does not include bands. Percent differential counts (%) should be interpreted in the context of the absolute cell counts (cells/UL). Performed By: #### 5 7021-8 ####BHANU Treviño ([id number])[facility] ([facility])23644 [place] [address] Lymphocytes (Bld) [#/Vol] 1.18 x10*3/uL Low 1.20-4.80 [facility] Comment on above: Performed By: #### 5 7021-8 ####BHANU Treviño (54919)[facility] ([facility])53721 [place] [address] Lymphocytes/100 WBC (Bld) 15.7 % Normal 13.0-44.0 [facility] Comment on above: Performed By: #### 5 7021-8 ####BHANU Treviño (05057)[facility] ([facility])[address] [place] [address] 31006 MCH (RBC) [Entitic mass] 23.9 pg Low 26.0-34.0 [facility] Comment on above: Performed By: #### 5 7021-8 ####BHANU Treviño (98353)[facility] ([facility])[address] [place] [address]37[address] MCHC (RBC) [Mass/Vol] 30.9 g/dL Low 32.0-36.0 [facility] Comment on above: Performed By: #### 5 7021-8 ####BHANU Treviño (32063)[facility] ([facility])[address] [place] [address] 29998 MCV (RBC) [Entitic vol] 78 fL Low 80-100 U [facility] Comment on above: Performed By: #### 5 7021-8 ####BHANU Treviño (48394)[facility] ([facility])[address] [place] [address] 43925 Monocytes (Bld) [#/Vol] 1.05 x10*3/uL High 0.10-1.00 [facility] Comment on above: Performed By: #### 5 7021-8 ####BHANU Treviño (51533)[facility] ([facility])[address] [place] [address] 38230 Monocytes/100 WBC (Bld) 14.0 % Normal 2.0-10.0 U [facility] Comment on above: Performed By: #### 5 7021-8 ####BHANU Treviño (92476)[facility] ([facility])49175 [place] [address] Neutrophils (Bld) [#/Vol] 5.09 x10*3/uL Normal 1.20-7.70 [facility] Comment on above: Result Comment: Perc ent differential counts (%) should be interpreted in the context of the absolute cell counts (cells/uL). Performed By: #### 5 7021-8 ####BHANU Treviño ([id number])[facility] ([facility])60228 [place] [address] Neutrophils/100 WBC (Bld) 67.9 % Normal 40.0-80.0 [facility] Comment on above: Performed By: #### 5 7021-8 ####BHANU Treviño (59042)[facility] ([facility])88944 [place] [address] Nucleated RBC/100 WBC (Bld) [Ratio] 0.0 /100 WBCs Normal 0.0-0.0 [facility] Comment on above: Performed By: #### 5 7021-8 ####BHANU Treviño (10030)[facility] ([facility])59252 [place] [address] Platelets (Bld) [#/Vol] 644 x10*3/uL High 150-450 [facility] Comment on above: Performed By: #### 5 7021-8 ####BHANU Treviño (35187)[facility] ([facility])13672 [place] [address] RBC (Bld) [#/Vol] 3.55 x10*6/uL Low 4.50-5.90 [facility] Comment on above: Performed By: #### 5 7021-8 ####BHANU Treviño (68483)[facility] ([facility])64780 [place] [address] WBC (Bld) [#/Vol] 7.5 x10*3/uL Normal 4.4-11.3 [facility] Comment on above: Performed By: #### 5 7021-8 ####BHANU Treviño (80085)[facility] ([facility])31038 [place] [address] Comprehensive metabolic 2000 panelon 01-27-2025 Albumin BCP dye [Mass/Vol] 2.3 g/dL Low 3.4-5.0 [facility] Comment on above: Performed By: #### 2 4323-8 ####BHANU Treviño (44443)[facility] ([facility])19870 [place] [address] ALP [Catalytic activity/Vol] 70 U/L Normal 33-120 [facility] Comment on above: Performed By: #### 2 4323-8 ####BHANU Treviño (15101)[facility] ([facility])45831 [place] [address] ALT With P-5'-P [Catalytic activity/Vol] 40 U/L Normal 10-52 [facility] Comment on above: Result Comment: Sydni ents treated with Sulfasalazine may generate falsely decreased results for ALT. Performed By: #### 2 4323-8 ####BHANU Treviño ([id number])[facility] ([facility])84693 [place] [address] Anion gap [Moles/Vol] 11 mmol/L Normal 10-20 [facility] Comment on above: Performed By: #### 2 4323-8 ####BHANU Treviño (94599)[facility] ([facility])40673 [place] [address] AST With P-5'-P [Catalytic activity/Vol] 53 U/L High 9-39 [facility] Comment on above: Performed By: #### 2 4323-8 ####BHANU Treviño (92630)[facility] ([facility])[address]15 [place] [address] Bilirubin [Mass/Vol] 0.4 mg/dL Normal 0.0-1.2 [facility] Comment on above: Performed By: #### 2 4323-8 ####BHANU MATOSER L (68609)[facility] ([facility])[address]2395 [place] [address] Calcium [Mass/Vol] 8.1 mg/dL Low 8.6-10.6 [facility] Comment on above: Performed By: #### 2 4323-8 ####BHANU FLEMINGMOTZER L (03195)[facility] ([facility])[address]2296 [place] [address] Chloride [Moles/Vol] 101 mmol/L Normal 98-107 [facility] Comment on above: Performed By: #### 2 4323-8 ####BHANU MATOSER L (73496)[facility] ([facility])[address]159 [place] [address] CO2 [Moles/Vol] 29 mmol/L Normal 21-32 [facility] Comment on above: Performed By: #### 2 4323-8 ####BHANU GREGORY L (80044)[facility] ([facility])81735 [place] [address] Creatinine [Mass/Vol] 1.22 mg/dL Normal 0.50-1.30 [facility] Comment on above: Performed By: #### 2 4323-8 ####BHANU MATOSER L (54377)[facility] ([facility])77695 [place] [address] Glomerular filtration rate/1.73 sq M.predicted 72 mL/min/1.73m*2 Normal >60 [facility] Comment on above: Result Comment: Calc ulations of estimated GFR are performed using the 2020 CKD-EPI Study Refit equation without the race variable for the IDMS-Traceable creatinine methods.https://jasn.asnjournals.org/content/early /ASN.7951196579 Performed By: #### 2 4323-8 ####BHANU GREGORY L (57859)[facility] ([facility])[address]119 [place] [address] Glucose [Mass/Vol] 86 mg/dL Normal 74-99 [facility] Comment on above: Performed By: #### 2 4323-8 ####BHANU Treviño (90071)[facility] ([facility])04946 [place] [address] Potassium [Moles/Vol] 4.1 mmol/L Normal 3.5-5.3 [facility] Comment on above: Performed By: #### 2 4323-8 ####BHANU Treviño (71430)[facility] ([facility])35961 [place] [address] Protein [Mass/Vol] 6.5 g/dL Normal 6.4-8.2 [facility] Comment on above: Performed By: #### 2 4323-8 ####BHANU Treviño (39634)[facility] ([facility])[address]177 [place] [address] Sodium [Moles/Vol] 137 mmol/L Normal 136-145 [facility] Comment on above: Performed By: #### 2 4323-8 ####BHANU Treviño (11813)[facility] ([facility])[address]52 [place] [address] Urea nitrogen [Mass/Vol] 8 mg/dL Normal 6-23 [facility] Comment on above: Performed By: #### 2 4323-8 ####BHANU Treviño (97980)[facility] ([facility])[address]208 [place] [address] Magnesiumon 01-27-2025 Magnesium [Mass/Vol] 1.92 mg/dL Normal 1.60-2.40 [facility] Comment on above: Performed By: #### 1 9123-9 ####BHANU Treviño (48125)[facility] ([facility])[address]85 [place] [address] CBC W Auto Differential pane l (Bld)on 05-11-2025 Basophils (Bld) [#/Vol] 0.07 x10*3/uL Normal 0.00-0.10 [facility] Comment on above: Performed By: #### 5 7021-8 ####BHANU Treviño (71850)[facility] ([facility])24525 [place] [address] Basophils/100 WBC (Bld) 0.8 % Normal 0.0-2.0 [facility] Comment on above: Performed By: #### 5 7021-8 ####BHANU Treviño ([id number])[facility] ([facility])27683 [place] [address] Eosinophils (Bld) [#/Vol] 0.40 x10*3/uL Normal 0.00-0.70 [facility] Comment on above: Performed By: #### 5 7021-8 ####BHANU Treviño (60526)[facility] ([facility])[address]100 [place] [address] Eosinophils/100 WBC (Bld) 4.6 % Normal 0.0-6.0 [facility] Comment on above: Performed By: #### 5 7021-8 ####BHANU Treviño (75051)[facility] ([facility])[address] [place] [address] Erythrocyte distribution width (RBC) [Ratio] 19.9 % High 11.5-14.5 [facility] Comment on above: Performed By: #### 5 7021-8 ####BHANU Treviño (55952)[facility] ([facility])[address] [place] [id number] Hematocrit (Bld) [Volume fraction] 28.3 % Low 41.0-52.0 [facility] Comment on above: Performed By: #### 5 7021-8 ####BHANU Treviño ([id number])[facility] ([facility])[address] [place] [address] Hemoglobin (Bld) [Mass/Vol] 8.7 g/dL Low 13.5-17.5 [facility] Comment on above: Performed By: #### 5 7021-8 ####BHAUN Treviño ([id number])[facility] ([facility])[id number] [place] [address] Immature granulocytes (Bld) [#/Vol] 0.04 x10*3/uL Normal 0.00-0.70 [facility] Comment on above: Performed By: #### 5 7021-8 ####BHANU GREGORY L ([id number])[facility] ([facility])[id number] [place] [address] Immature granulocytes/100 WBC (Bld) 0.5 % Normal 0.0-0.9 [facility] Comment on above: Result Comment: Christine ture Granulocyte Count (IG) includes promyelocytes, myelocytes and metamyelocytes but does not include bands. Percent differential counts (%) should be interpreted in the context of the absolute cell counts (cells/UL). Performed By: #### 5 7021-8 ####BHANU Treviño ([id number])[facility] ([facility])[id number] [place] [id number] Lymphocytes (Bld) [#/Vol] 1.23 x10*3/uL Normal 1.20-4.80 [facility] Comment on above: Performed By: #### 5 7021-8 ####BHANU Treviño ([id number])[facility] ([facility])[address] [place] [address] Lymphocytes/100 WBC (Bld) 14.1 % Normal 13.0-44.0 [facility] Comment on above: Performed By: #### 5 7021-8 ####BHANU Treviño ([id number])[facility] ([facility])[address] [place] [address] MCH (RBC) [Entitic mass] 24.2 pg Low 26.0-34.0 [facility] Comment on above: Performed By: #### 5 7021-8 ####BHANU GREGORY L ([id number])[facility] ([facility])[address] [place] [address] MCHC (RBC) [Mass/Vol] 30.7 g/dL Low 32.0-36.0 [facility] Comment on above: Performed By: #### 5 7021-8 ####BHANU Treviño ([id number])[facility] ([facility])[address]23 [place] [address] MCV (RBC) [Entitic vol] 79 fL Low 80-100 U [facility] Comment on above: Performed By: #### 5 7021-8 ####BHANU Treviño ([id number])[facility] ([facility])[address] [place] [address] 15567 Monocytes (Bld) [#/Vol] 1.06 x10*3/uL High 0.10-1.00 [facility] Comment on above: Performed By: #### 5 7021-8 ####BHANU Treviño ([id number])[facility] ([facility])[address] [place] [address] 21466 Monocytes/100 WBC (Bld) 12.2 % Normal 2.0-10.0 [facility] Comment on above: Performed By: #### 5 7021-8 ####BHANU Treviño ([id number])[facility] ([facility])[address] [place] [address] 08889 Neutrophils (Bld) [#/Vol] 5.92 x10*3/uL Normal 1.20-7.70 [facility] Comment on above: Result Comment: Perc ent differential counts (%) should be interpreted in the context of the absolute cell counts (cells/uL). Performed By: #### 5 7021-8 ####BHANU Treviño ([id number])[facility] ([facility])[address] [place] [address] Neutrophils/100 WBC (Bld) 67.8 % Normal 40.0-80.0 [facility] Comment on above: Performed By: #### 5 7021-8 ####BHANU Treviño ([id number])[facility] ([facility])[address]303 [place] [address] Nucleated RBC/100 WBC (Bld) [Ratio] 0.0 /100 WBCs Normal 0.0-0.0 [facility] Comment on above: Performed By: #### 5 7021-8 ####BHANU Treviño ([id number])[facility] ([facility])[address] [place] [address] Platelets (Bld) [#/Vol] 713 x10*3/uL High 150-450 [facility] Comment on above: Performed By: #### 5 7021-8 ####BHANU Treviño ([id number])[facility] ([facility])[address] [place] [address] RBC (Bld) [#/Vol] 3.60 x10*6/uL Low 4.50-5.90 [facility] Comment on above: Performed By: #### 5 7021-8 ####BHANU Treviño ([id number])[facility] ([facility])[address] [place] [address]8076 WBC (Bld) [#/Vol] 8.7 x10*3/uL Normal 4.4-11.3 [facility] Comment on above: Performed By: #### 5 7021-8 ####BHANU Treviño ([id number])[facility] ([facility])[address]134 [place] [address] Comprehensive metabolic 2000 panelon 01-26-2025 Albumin BCP dye [Mass/Vol] 2.4 g/dL Low 3.4-5.0 [facility] Comment on above: Performed By: #### 2 4323-8 ####BHANU Treviño ([id number])[facility] ([facility])[address] [place] [address] ALP [Catalytic activity/Vol] 74 U/L Normal 33-120 [facility] Comment on above: Performed By: #### 2 4323-8 ####BHANU Treviño ([id number])[facility] ([facility])[address] [place] [address] ALT With P-5'-P [Catalytic activity/Vol] 38 U/L Normal 10-52 [facility] Comment on above: Result Comment: Sydni ents treated with Sulfasalazine may generate falsely decreased results for ALT. Performed By: #### 2 4323-8 ####BHANU Treviño ([id number])[facility] ([facility])[address] [place] [address] Anion gap [Moles/Vol] 12 mmol/L Normal 10-20 [facility] Comment on above: Performed By: #### 2 4323-8 ####BHANU Treviño ([id number])[facility] ([facility])[address] [place] [address] AST With P-5'-P [Catalytic activity/Vol] 55 U/L High 9-39 [facility] Comment on above: Performed By: #### 2 4323-8 ####BHANU GREGORY L ([id number])[facility] ([facility])[address]754 [place] [address] Bilirubin [Mass/Vol] 0.3 mg/dL Normal 0.0-1.2 [facility] Comment on above: Performed By: #### 2 4323-8 ####BHANU Treviño ([id number])[facility] ([facility])[address]179 [place] [address] Calcium [Mass/Vol] 8.3 mg/dL Low 8.6-10.6 [facility] Comment on above: Performed By: #### 2 4323-8 ####BHANU GREGORY L ([id number])[facility] ([facility])[address] [place] [address] Chloride [Moles/Vol] 102 mmol/L Normal 98-107 [facility] Comment on above: Performed By: #### 2 4323-8 ####BHANU GREGORY L ([id number])[facility] ([facility])[address]17 [place] [address] CO2 [Moles/Vol] 29 mmol/L Normal 21-32 [facility] Comment on above: Performed By: #### 2 4323-8 ####BHANU Treviño ([id number])[facility] ([facility])[address] [facility] [place] [address] Creatinine [Mass/Vol] 1.29 mg/dL Normal 0.50-1.30 [facility] Comment on above: Performed By: #### 2 4323-8 ####BHANU Treviño (84066)[facility] ([facility])[address]223 [place] [address] Glomerular filtration rate/1.73 sq M.predicted 67 mL/min/1.73m*2 Normal >60 [facility] Comment on above: Result Comment: Calc ulations of estimated GFR are performed using the 2020 CKD-EPI Study Refit equation without the race variable for the IDMS-Traceable creatinine methods.https://jasn.asnjournals.org/content/early/ /ASN.4918353012 Performed By: #### 2 4323-8 ####BHANU Treviño (74036)[facility] ([facility])[address]72 [place] [address] Glucose [Mass/Vol] 100 mg/dL High 74-99 [facility] Comment on above: Performed By: #### 2 4323-8 ####BHANU Treviño (97559)[facility] ([facility])[address]73 [place] [address] Potassium [Moles/Vol] 4.0 mmol/L Normal 3.5-5.3 [facility] Comment on above: Performed By: #### 2 4323-8 ####BHANU Treviño ([id number])[facility] ([facility])[address]353 [place] [address] Protein [Mass/Vol] 6.6 g/dL Normal 6.4-8.2 [facility] Comment on above: Performed By: #### 2 4323-8 ####BHANU SCHMOTZER L ([id number])[facility] ([facility])60367 [place] [address] Sodium [Moles/Vol] 139 mmol/L Normal 136-145 [facility] Comment on above: Performed By: #### 2 4323-8 ####BHANU SCHMOTZER L (65608)[facility] ([facility])[address]36 [place] [address] Urea nitrogen [Mass/Vol] 9 mg/dL Normal 6-23 [facility] Comment on above: Performed By: #### 2 4323-8 ####BHANU SCHMOTZER L (77275)[facility] ([facility])[address] [place] [address]999 Magnesiumon 01-26-2025 Magnesium [Mass/Vol] 2.06 mg/dL Normal 1.60-2.40 [facility] Comment on above: Performed By: #### 1 9123-9 ####BHANU SCHMOTZER L ([id number])[facility] ([facility])[address] [place] [address]14[address] CBC W Auto Differential edye kamila (Bld)on 01-25-2025 Erythrocyte distribution width (RBC) [Ratio] 19.8 % High 11.5-14.5 [facility] Comment on above: Order Comment: The [...] By: #### 5 7021-8 ####BHANU SCHMOTZER L ([id number])[facility] ([facility])[address] [place] [address]55[address] Hematocrit (Bld) [Volume fraction] 28.8 % Low 41.0-52.0 [facility] Comment on above: Order Comment: The [...] Performed By: #### 5 7021-8 ####BHANU Treviño (91309)[facility] ([facility])[address]758 [place] [address] Hemoglobin (Bld) [Mass/Vol] 9.0 g/dL Low 13.5-17.5 [facility] Comment on above: Order Comment: The [...] Performed By: #### 5 7021-8 ####BHANU Treviño ([id number])[facility] ([facility])[address]60 [place] [address] Immature granulocytes (Bld) [#/Vol] 0.06 x10*3/uL Normal 0.00-0.70 [facility] Comment on above: Order Comment: The [...] Performed By: #### 5 7021-8 ####BHANU Treviño ([id number])[facility] ([facility])04674 [place] [address] Immature granulocytes/100 WBC (Bld) 0.6 % Normal 0.0-0.9 [facility] Comment on above: Order Comment: The [...] Performed By: #### 5 7021-8 ####BHANU Treviño ([id number])[facility] ([facility])[address]48 [place] [address] MCH (RBC) [Entitic mass] 24.6 pg Low 26.0-34.0 [facility] Comment on above: Order Comment: The [...] Performed By: #### 5 7021-8 ####BHANU Treviño ([id number])[facility] ([facility])[address]998 [place] [address] MCHC (RBC) [Mass/Vol] 31.3 g/dL Low 32.0-36.0 [facility] Comment on above: Order Comment: The [...] Performed By: #### 5 7021-8 ####BHANU Treviño (24077)[facility] ([facility])[address]280 [place] [address] MCV (RBC) [Entitic vol] 79 fL Low 80-100 U [facility] Comment on above: Order [...] Performed By: #### 5 7021-8 ####BHANU Treviño ([id number])[facility] ([facility])18480 [place] [address] Nucleated RBC/100 WBC (Bld) [Ratio] 0.0 /100 WBCs Normal 0.0-0.0 [facility] Comment on above: Order Comment: The [...] Performed By: #### 5 7021-8 ####BHANU Treviño (97714)[facility] ([facility])[address]507 [place] [address] Platelets (Bld) [#/Vol] 753 x10*3/uL High 150-450 [facility] Comment on above: Order Comment: The [...] Performed By: #### 5 7021-8 ####BHANU Treviño ([id number])[facility] ([facility])[address]126 [place] [address] RBC (Bld) [#/Vol] 3.66 x10*6/uL Low 4.50-5.90 [facility] Comment on above: Order Comment: The [...] Performed By: #### 5 7021-8 ####BHANU Treviño ([id number])[facility] ([facility])[address]37 [place] [address] WBC (Bld) [#/Vol] 10.7 x10*3/uL Normal 4.4-11.3 [facility] Comment on above: Order Comment: The [...] Performed By: #### 5 7021-8 ####BHANU Treviño (35216)[facility] ([facility])[address]93 [place] [address] Comprehensive metabolic 2000 panelon 01-25-2025 Albumin BCP dye [Mass/Vol] 2.5 g/dL Low 3.4-5.0 [facility] Comment on above: Performed By: #### 2 4323-8 ####BHANU Treviño (35525)[facility] ([facility])[address]305 [place] [address] ALP [Catalytic activity/Vol] 69 U/L Normal 33-120 [facility] Comment on above: Performed By: #### 2 4323-8 ####BHANU Treviño ([id number])[facility] ([facility])[address]19 [place] [address] ALT With P-5'-P [Catalytic activity/Vol] 34 U/L Normal 10-52 [facility] Comment on above: Result Comment: Sydni ents treated with Sulfasalazine may generate falsely decreased results for ALT. Performed By: #### 2 4323-8 ####BHANU Treviño (81050)[facility] ([facility])[address]058 [facility] [place] [address] Anion gap [Moles/Vol] 14 mmol/L Normal 10-20 [facility] Comment on above: Performed By: #### 2 4323-8 ####BHANU Treviño (93149)[facility] ([facility])[address]655 [place] [address] AST With P-5'-P [Catalytic activity/Vol] 43 U/L High 9-39 [facility] Comment on above: Performed By: #### 2 4323-8 ####BHANU Treviño (63859)[facility] ([facility])[address]16 [place] [address] Bilirubin [Mass/Vol] 0.4 mg/dL Normal 0.0-1.2 [facility] Comment on above: Performed By: #### 2 4323-8 ####BHANU Treviño (90800)[facility] ([facility])[address]13 [place] [address] Calcium [Mass/Vol] 8.5 mg/dL Low 8.6-10.6 [facility] Comment on above: Performed By: #### 2 4323-8 ####BHANU Treviño (57561)[facility] ([facility])[address]05 [facility] [place] [address] Chloride [Moles/Vol] 101 mmol/L Normal 98-107 [facility] Comment on above: Performed By: #### 2 4323-8 ####BHANU Treviño (66937)[facility] ([facility])[address]39 [place] [address] CO2 [Moles/Vol] 26 mmol/L Normal 21-32 [facility] Comment on above: Performed By: #### 2 4323-8 ####BHANU GREGORY L ([id number])[facility] ([facility])24893 [place] [address] Creatinine [Mass/Vol] 1.11 mg/dL Normal 0.50-1.30 [facility] Comment on above: Performed By: #### 2 4323-8 ####BHANU GREGORY L (63478)[facility] ([facility])[address]505 [place] [address] Glomerular filtration rate/1.73 sq M.predicted 80 mL/min/1.73m*2 Normal >60 [facility] Comment on above: Result Comment: Calc ulations of estimated GFR are performed using the 2020 CKD-EPI Study Refit equation without the race variable for the IDMS-Traceable creatinine methods.https://jasn.asnjournals.org/content/ /ASN.7270766870 Performed By: #### 2 4323-8 ####BHANU GREGORY L (66087)[facility] ([facility])[address]109 [place] [address] Glucose [Mass/Vol] 100 mg/dL High 74-99 [facility] Comment on above: Performed By: #### 2 4323-8 ####BHANU GREGORY L (53320)[facility] ([facility])[address]40 [place] [address] Potassium [Moles/Vol] 3.9 mmol/L Normal 3.5-5.3 [facility] Comment on above: Performed By: #### 2 4323-8 ####BHANU GREGORY L (76200)[facility] ([facility])[address]73 [place] [address] Protein [Mass/Vol] 6.8 g/dL Normal 6.4-8.2 [facility] Comment on above: Performed By: #### 2 4323-8 ####BHANU GREGORY L (67720)[facility] ([facility])[address]52 [place] [address] Sodium [Moles/Vol] 137 mmol/L Normal 136-145 [facility] Comment on above: Performed By: #### 2 4323-8 ####BHANU Treviño (94981)[facility] ([facility])[address] [place] [address] Urea nitrogen [Mass/Vol] 8 mg/dL Normal 6-23 [facility] Comment on above: Performed By: #### 2 4323-8 ####BHANU Treviño (80805)[facility] ([facility])[address] [place] [address]255 Magnesiumon 01-25-2025 Magnesium [Mass/Vol] 2.08 mg/dL Normal 1.60-2.40 [facility] Comment on above: Performed By: #### 1 9123-9 ####BHANU Treviño (65032)[facility] ([facility])[address] [place] [address] 29187 Manual differential performe d Ql (Bld)on 01-25-2025 Band form neutrophils (Bld) [#/Vol] 0.28 x10*3/uL Normal 0.00-0.70 [facility] Comment on above: Performed By: #### 5 0957-0 ####BHANU Treviño (42100)[facility] ([facility])[address] [place] [address] 31241 Band form neutrophils/100 WBC (Bld) 2.6 % Normal 0.0-5.0 [facility] Comment on above: Performed By: #### 5 0957-0 ####BHANU Treviño (15315)[facility] ([facility])[address] [place] [address] Basophils (Bld) [#/Vol] 0.00 x10*3/uL Normal 0.00-0.10 [facility] Comment on above: Performed By: #### 5 0957-0 ####BHANU Treviño (89677)[facility] ([facility])[address] [place] [address] Basophils/100 WBC (Bld) 0.0 % Normal 0.0-2.0 [facility] Comment on above: Performed By: #### 5 0957-0 ####BHANU Treviño (73872)[facility] ([facility])[address]36 [facility] [place] [address] Cells Counted Total (Bld) [#] 116 Normal [facility] Comment on above: Performed By: #### 5 0957-0 ####BHANU Treviño (23209)[facility] ([facility])[address]53 [place] [address] Eosinophils (Bld) [#/Vol] 0.09 x10*3/uL Normal 0.00-0.70 [facility] Comment on above: Performed By: #### 5 0957-0 ####BHANU Treviño (61832)[facility] ([facility])[address] [place] [address] Eosinophils/100 WBC (Bld) 0.8 % Normal 0.0-6.0 [facility] Comment on above: Performed By: #### 5 0957-0 ####BHANU Treviño (47758)[facility] ([facility])[address]36 [place] [address] Hypochromia Ql (Bld) Mild Normal [facility] Comment on above: Performed By: #### 5 0957-0 ####BHANU Treviño (88521)[facility] ([facility])34889 [place] [address] Lymphocytes (Bld) [#/Vol] 0.46 x10*3/uL Low 1.20-4.80 [facility] Comment on above: Performed By: #### 5 0957-0 ####BHANU Treviño (05565)[facility] ([facility])[address]43 [facility] [place] [address] Lymphocytes/100 WBC (Bld) 4.3 % Normal 13.0-44.0 [facility] Comment on above: Performed By: #### 5 0957-0 ####BHANU Treviño (51604)[facility] ([facility])34856 [place] [address] Monocytes (Bld) [#/Vol] 0.46 x10*3/uL Normal 0.10-1.00 [facility] Comment on above: Performed By: #### 5 57-0 ####BHANU Treviño (94574)[facility] ([facility])77257 [place] [address] Monocytes/100 WBC (Bld) 4.3 % Normal 2.0-10.0 [facility] Comment on above: Performed By: #### 5 57-0 ####BHANU Treviño (33242)[facility] ([facility])[address]15 [place] [address] Neutrophils (Bld) [#/Vol] 9.60 x10*3/uL High 1.20-7.70 [facility] Comment on above: Performed By: #### 5 57-0 ####BHANU Treviño (92421)[facility] ([facility])[address]123 [place] [address] RBC morphology finding Nom (Bld) See Below Normal [facility] Comment on above: Performed By: #### 5 0957-0 ####BHANU Treviño (26598)[facility] ([facility])27148 [place] [address] Segmented neutrophils (Bld) [#/Vol] 9.32 x10*3/uL High 1.20-7.00 [facility] Comment on above: Performed By: #### 5 0957-0 ####BHANU Treviño (09975)[facility] ([facility])64806 [place] [address] Segmented neutrophils/100 WBC (Bld) 87.1 % Normal 40.0-80.0 [facility] Comment on above: Result Comment: Perc ent differential counts (%) should be interpreted in the context of the absolute cell counts (cells/uL). Performed By: #### 5 0957-0 ####BHANU Treviño ([id number])[facility] ([facility])[address] [place] [address] Target cells LM Ql (Bld) Few Normal [facility] Comment on above: Performed By: #### 5 0957-0 ####BHANU Treviño (25791)[facility] ([facility])[address] [place] [address] Variant lymphocytes (Bld) [#/Vol] 0.10 x10*3/uL Normal 0.00-0.50 [facility] Comment on above: Performed By: #### 5 0957-0 ####BHANU Treviño (82469)[facility] ([facility])[address] [place] [address] Variant lymphocytes/100 WBC (Bld) 0.9 % Normal 0.0-2.0 [facility] Comment on above: Performed By: #### 5 0957-0 ####BHANU Treviño (95534)[facility] ([facility])[address] [place] [address] 23141 Bacteria identifiedon 2024 Bacteria identified Cx Nom (Unsp spec) Abnormal [facility] Comment on above: Performed By: #### 6 463-4 ####BHANU Treviño (49121)[facility] ([facility])[address] [place] [address] 279[address] Blood type and Indirect anti body screen panel (Bld)on 01-24-2025 ABO group Nom (Bld) A Normal [facility] Comment on above: Performed By: #### 3 4532-2 ####BHANU Treviño ([id number])[facility] [place] [address] Blood group antibody screen Ql Negative Normal [facility] Comment on above: Performed By: #### 3 4532-2 ####BHANU Treviño (41965)[facility] ([facility])[address]38 [place] [address] D Ag Ql (Bld) Positive Normal [facility] Comment on above: Performed By: #### 3 4532-2 ####BHANU Treviño (67627)[facility] ([facility])[address]61 [place] [place] [address] CBC W Auto Differential pane l (Bld)on 01-24-2025 Basophils (Bld) [#/Vol] 0.07 x10*3/uL Normal 0.00-0.10 [facility] Comment on above: Performed By: #### 5 7021-8 ####BHANU Treviño (71819)[facility] ([facility])[address]73 [place] [address] Basophils/100 WBC (Bld) 0.7 % Normal 0.0-2.0 [facility] Comment on above: Performed By: #### 5 7021-8 ####BHANU Treviño (79825)[facility] ([facility])[address]64 [place] [address] Eosinophils (Bld) [#/Vol] 0.31 x10*3/uL Normal 0.00-0.70 [facility] Comment on above: Performed By: #### 5 7021-8 ####BHANU Treviño (90858)[facility] ([facility])[address]155 [place] [address] Eosinophils/100 WBC (Bld) 3.3 % Normal 0.0-6.0 [facility] Comment on above: Performed By: #### 5 7021-8 ####BHANU Treviño (61092)[facility] ([facility])[id number] [place] [address] Erythrocyte distribution width (RBC) [Ratio] 19.7 % High 11.5-14.5 [facility] Comment on above: Performed By: #### 5 7021-8 ####BHANU Treviño ([id number])[facility] ([facility])[id number] [place] [address] Hematocrit (Bld) [Volume fraction] 27.2 % Low 41.0-52.0 [facility] Comment on above: Performed By: #### 5 7021-8 ####BHANU Treviño ([id number])[facility] ([facility])[address] [place] [address] Hemoglobin (Bld) [Mass/Vol] 8.6 g/dL Low 13.5-17.5 [facility] Comment on above: Performed By: #### 5 7021-8 ####BHANU Treviño ([id number])[facility] ([facility])[id number] [place] [address] Immature granulocytes (Bld) [#/Vol] 0.06 x10*3/uL Normal 0.00-0.70 [facility] Comment on above: Performed By: #### 5 7021-8 ####BHANU Treviño ([id number])[facility] ([facility])[id number] [place] [id number] Immature granulocytes/100 WBC (Bld) 0.6 % Normal 0.0-0.9 [facility] Comment on above: Result Comment: Christine ture Granulocyte Count (IG) includes promyelocytes, myelocytes and metamyelocytes but does not include bands. Percent differential counts (%) should be interpreted in the context of the absolute cell counts (cells/UL). Performed By: #### 5 7021-8 ####BHANU Treviño ([id number])[facility] ([facility])[id number] [place] [address] Lymphocytes (Bld) [#/Vol] 1.12 x10*3/uL Low 1.20-4.80 [facility] Comment on above: Performed By: #### 5 7021-8 ####BHANU Treviño ([id number])[facility] ([facility])[address] [place] [address] Lymphocytes/100 WBC (Bld) 11.8 % Normal 13.0-44.0 [facility] Comment on above: Performed By: #### 5 7021-8 ####BHANU Treviño ([id number])[facility] ([facility])[address]181 [place] [address] MCH (RBC) [Entitic mass] 24.5 pg Low 26.0-34.0 [facility] Comment on above: Performed By: #### 5 7021-8 ####BHANU Treviño ([id number])[facility] ([facility])[address]707 [place] [address] MCHC (RBC) [Mass/Vol] 31.6 g/dL Low 32.0-36.0 [facility] Comment on above: Performed By: #### 5 7021-8 ####BHANU Treviño ([id number])[facility] ([facility])[address] [place] [address] MCV (RBC) [Entitic vol] 78 fL Low 80-100 U [facility] Comment on above: Performed By: #### 5 7021-8 ####BHANU Treviño ([id number])[facility] ([facility])[address] [place] [address] Monocytes (Bld) [#/Vol] 1.07 x10*3/uL High 0.10-1.00 [facility] Comment on above: Performed By: #### 5 7021-8 ####BHANU Treviño ([id number])[facility] ([facility])[address]115 [place] [address] Monocytes/100 WBC (Bld) 11.3 % Normal 2.0-10.0 [facility] Comment on above: Performed By: #### 5 7021-8 ####BHANU Treviño ([id number])[facility] ([facility])[address] [place] [address] Neutrophils (Bld) [#/Vol] 6.87 x10*3/uL Normal 1.20-7.70 [facility] Comment on above: Result Comment: Perc ent differential counts (%) should be interpreted in the context of the absolute cell counts (cells/uL). Performed By: #### 5 7021-8 ####BHANU Treviño ([id number])[facility] ([facility])[address]55 [place] [address] Neutrophils/100 WBC (Bld) 72.3 % Normal 40.0-80.0 [facility] Comment on above: Performed By: #### 5 7021-8 ####BHANU GREGORY L ([id number])[facility] ([facility])[address]388 [place] [address] Nucleated RBC/100 WBC (Bld) [Ratio] 0.0 /100 WBCs Normal 0.0-0.0 [facility] Comment on above: Performed By: #### 5 7021-8 ####BHANU Treviño ([id number])[facility] ([facility])[address]64 [place] [address] Platelets (Bld) [#/Vol] 722 x10*3/uL High 150-450 [facility] Comment on above: Performed By: #### 5 7021-8 ####BHANU Treviño ([id number])[facility] ([facility])[address]695 [place] [address] RBC (Bld) [#/Vol] 3.51 x10*6/uL Low 4.50-5.90 [facility] Comment on above: Performed By: #### 5 7021-8 ####BHANU GREGORY L ([id number])[facility] ([facility])[address] [place] [address] WBC (Bld) [#/Vol] 9.5 x10*3/uL Normal 4.4-11.3 [facility] Comment on above: Performed By: #### 5 7021-8 ####BHANU FLEMINGMOTZALANNA L ([id number])[facility] ([facility])[address]196 [place] [address] Basophils (Bld) [#/Vol] 0.07 x10*3/uL Normal 0.00-0.10 [facility] Comment on above: Performed By: #### 5 7021-8 ####BHANU Treviño ([id number])[facility] ([facility])[address] [place] [address] Basophils/100 WBC (Bld) 0.8 % Normal 0.0-2.0 [facility] Comment on above: Performed By: #### 5 7021-8 ####BHANU GREGORY L ([id number])[facility] ([facility])[address] [place] [address] Eosinophils (Bld) [#/Vol] 0.09 x10*3/uL Normal 0.00-0.70 [facility] Comment on above: Performed By: #### 5 7021-8 ####BHANU GREGORY L ([id number])[facility] ([facility])[address] [place] [address] Eosinophils/100 WBC (Bld) 1.1 % Normal 0.0-6.0 [facility] Comment on above: Performed By: #### 5 7021-8 ####BHANU Treviño ([id number])[facility] ([facility])[address] [place] [address] Erythrocyte distribution width (RBC) [Ratio] 19.7 % High 11.5-14.5 [facility] Comment on above: Performed By: #### 5 7021-8 ####BHANU GREGORY L ([id number])[facility] ([facility])[address] [place] [address] Hematocrit (Bld) [Volume fraction] 27.4 % Low 41.0-52.0 [facility] Comment on above: Performed By: #### 5 7021-8 ####BHANU GREGORY L ([id number])[facility] ([facility])[address] [place] [address] Hemoglobin (Bld) [Mass/Vol] 8.6 g/dL Low 13.5-17.5 [facility] Comment on above: Performed By: #### 5 7021-8 ####BHANU Treviño ([id number])[facility] ([facility])[address]164 [place] [address] Immature granulocytes (Bld) [#/Vol] 0.04 x10*3/uL Normal 0.00-0.70 [facility] Comment on above: Performed By: #### 5 7021-8 ####BHANU Treviño ([id number])[facility] ([facility])[address]285 [place] [address] Immature granulocytes/100 WBC (Bld) 0.5 % Normal 0.0-0.9 [facility] Comment on above: Result Comment: Christine ture Granulocyte Count (IG) includes promyelocytes, myelocytes and metamyelocytes but does not include bands. Percent differential counts (%) should be interpreted in the context of the absolute cell counts (cells/UL). Performed By: #### 5 7021-8 ####BHANU Treviño ([id number])[facility] ([facility])[address]878 [place] [address] Lymphocytes (Bld) [#/Vol] 1.33 x10*3/uL Normal 1.20-4.80 [facility] Comment on above: Performed By: #### 5 7021-8 ####BHANU Treviño ([id number])[facility] ([facility])[address]67 [place] [address] Lymphocytes/100 WBC (Bld) 15.8 % Normal 13.0-44.0 [facility] Comment on above: Performed By: #### 5 7021-8 ####BHANU Treviño ([id number])[facility] ([facility])[address]997 [place] [address] MCH (RBC) [Entitic mass] 24.1 pg Low 26.0-34.0 [facility] Comment on above: Performed By: #### 5 7021-8 ####BHANU Treviño ([id number])[facility] ([facility])[address]294 [place] [address] MCHC (RBC) [Mass/Vol] 31.4 g/dL Low 32.0-36.0 [facility] Comment on above: Performed By: #### 5 7021-8 ####BHANU Treviño ([id number])[facility] ([facility])[address]15 [place] [address] MCV (RBC) [Entitic vol] 77 fL Low 80-100 U [facility] Comment on above: Performed By: #### 5 7021-8 ####BHANU Treviño ([id number])[facility] ([facility])[address]487 [place] [address] Monocytes (Bld) [#/Vol] 1.12 x10*3/uL High 0.10-1.00 [facility] Comment on above: Performed By: #### 5 7021-8 ####BHANU Treviño ([id number])[facility] ([facility])[address]91 [place] [address] Monocytes/100 WBC (Bld) 13.3 % Normal 2.0-10.0 [facility] Comment on above: Performed By: #### 5 7021-8 ####BHANU Treviño ([id number])[facility] ([facility])[address]48 [place] [address] Neutrophils (Bld) [#/Vol] 5.79 x10*3/uL Normal 1.20-7.70 [facility] Comment on above: Result Comment: Perc ent differential counts (%) should be interpreted in the context of the absolute cell counts (cells/uL). Performed By: #### 5 7021-8 ####BHANU Treviño ([id number])[facility] ([facility])[address]008 [place] [address] Neutrophils/100 WBC (Bld) 68.5 % Normal 40.0-80.0 [facility] Comment on above: Performed By: #### 5 7021-8 ####BHANU Treviño ([id number])[facility] ([facility])[address]12 [place] [address] Nucleated RBC/100 WBC (Bld) [Ratio] 0.0 /100 WBCs Normal 0.0-0.0 [facility] Comment on above: Performed By: #### 5 7021-8 ####BHANU Treviño ([id number])[facility] ([facility])[address]90 [place] [address] Platelets (Bld) [#/Vol] 737 x10*3/uL High 150-450 [facility] Comment on above: Performed By: #### 5 7021-8 ####BHANU Treviño ([id number])[facility] ([facility])[address]602 [place] [address] RBC (Bld) [#/Vol] 3.57 x10*6/uL Low 4.50-5.90 [facility] Comment on above: Performed By: #### 5 7021-8 ####BHANU Treviño ([id number])[facility] ([facility])[address] [place] [address] WBC (Bld) [#/Vol] 8.4 x10*3/uL Normal 4.4-11.3 [facility] Comment on above: Performed By: #### 5 7021-8 ####BHANU Treviño ([id number])[facility] ([facility])[address]190 [place] [address] Comprehensive metabolic 2000 panelon 01-24-2025 Albumin BCP dye [Mass/Vol] 2.4 g/dL Low 3.4-5.0 [facility] Comment on above: Performed By: #### 2 4323-8 ####BHANU Treviño ([id number])[facility] ([facility])[address]40 [place] [address] ALP [Catalytic activity/Vol] 70 U/L Normal 33-120 [facility] Comment on above: Performed By: #### 2 4323-8 ####BHANU Treviño ([id number])[facility] ([facility])[address]990 [place] [address] ALT With P-5'-P [Catalytic activity/Vol] 38 U/L Normal 10-52 [facility] Comment on above: Result Comment: Sydni ents treated with Sulfasalazine may generate falsely decreased results for ALT. Performed By: #### 2 4323-8 ####BHANU Treviño ([id number])[facility] ([facility])[address]83 [place] [address] Anion gap [Moles/Vol] 13 mmol/L Normal 10-20 [facility] Comment on above: Performed By: #### 2 4323-8 ####BHANU Treviño ([id number])[facility] ([facility])[address]67 [place] [address] AST With P-5'-P [Catalytic activity/Vol] 46 U/L High 9-39 [facility] Comment on above: Performed By: #### 2 4323-8 ####BHANU Treviño ([id number])[facility] ([facility])[address]253 [place] [address] Bilirubin [Mass/Vol] 0.3 mg/dL Normal 0.0-1.2 [facility] Comment on above: Performed By: #### 2 4323-8 ####BHANU Treviño (48405)[facility] ([facility])[address]471 [place] [address] Calcium [Mass/Vol] 8.5 mg/dL Low 8.6-10.6 [facility] Comment on above: Performed By: #### 2 4323-8 ####BHANU Treviño ([id number])[facility] ([facility])[address]76 [place] [address] Chloride [Moles/Vol] 101 mmol/L Normal 98-107 [facility] Comment on above: Performed By: #### 2 4323-8 ####BHANU Treviño ([id number])[facility] ([facility])[address]15 [place] [address] CO2 [Moles/Vol] 27 mmol/L Normal 21-32 [facility] Comment on above: Performed By: #### 2 4323-8 ####BHANU Treviño (49244)[facility] ([facility])[address]321 [place] [address] Creatinine [Mass/Vol] 1.20 mg/dL Normal 0.50-1.30 [facility] Comment on above: Performed By: #### 2 4323-8 ####BHANU GREGORY L ([id number])[facility] ([facility])[address]17 [place] [address] Glomerular filtration rate/1.73 sq M.predicted 73 mL/min/1.73m*2 Normal >60 [facility] Comment on above: Result Comment: Calc ulations of estimated GFR are performed using the 2020 CKD-EPI Study Refit equation without the race variable for the IDMS-Traceable creatinine methods.https://jasn.asnjournals.org/content/ /ASN.1863546545 Performed By: #### 2 4323-8 ####BHANU Treviño ([id number])[facility] ([facility])[address]60 [place] [address] Glucose [Mass/Vol] 103 mg/dL High 74-99 [facility] Comment on above: Performed By: #### 2 4323-8 ####BHANU Treviño (46058)[facility] ([facility])[address]12 [place] [address] Potassium [Moles/Vol] 4.1 mmol/L Normal 3.5-5.3 [facility] Comment on above: Performed By: #### 2 4323-8 ####BHANU GREGORY L (12118)[facility] ([facility])[address]160 [place] [address] Protein [Mass/Vol] 6.5 g/dL Normal 6.4-8.2 [facility] Comment on above: Performed By: #### 2 4323-8 ####BHANU Treviño (08077)[facility] ([facility])[address]505 [place] [address] Sodium [Moles/Vol] 137 mmol/L Normal 136-145 [facility] Comment on above: Performed By: #### 2 4323-8 ####BHANU Treviño ([id number])[facility] ([facility])[address]655 [place] [address] Urea nitrogen [Mass/Vol] 10 mg/dL Normal 6-23 [facility] Comment on above: Performed By: #### 2 4323-8 ####BHANU Treviño ([id number])[facility] ([facility])[address] [place] [address] Magnesiumon 01-24-2025 Magnesium [Mass/Vol] 1.89 mg/dL Normal 1.60-2.40 [facility] Comment on above: Performed By: #### 1 9123-9 ####BHANU Treviño ([id number])[facility] ([facility])[address] [place] [address] RBC shape Nom (Bld)on 2024 Hypochromia Ql (Bld) Mild Normal [facility] Comment on above: Performed By: #### 1 8225-3 ####BHANU Treviño (13397)[facility] ([facility])[address] [place] [address] RBC morphology finding Nom (Bld) See Below [facility] Comment on above: Performed By: #### 1 8225-3 ####BHANU Treviño (88504)[facility] ([facility])[address] [place] [address] Stomatocytes LM Ql (Bld) Few [facility] Comment on above: Performed By: #### 1 8225-3 ####BHANU Treviño ([id number])[facility] ([facility])[address]47 [place] [address] CBC W Auto Differential pane l (Bld)on 01-23-2025 Basophils (Bld) [#/Vol] 0.08 x10*3/uL Normal 0.00-0.10 [facility] Comment on above: Performed By: #### 5 7021-8 ####BHANU Treviño ([id number])[facility] ([facility])[address]35 [place] [address] Basophils/100 WBC (Bld) 0.9 % Normal 0.0-2.0 [facility] Comment on above: Performed By: #### 5 7021-8 ####BHANU Treviño ([id number])[facility] ([facility])[address]356 [place] [address] Eosinophils (Bld) [#/Vol] 0.57 x10*3/uL Normal 0.00-0.70 [facility] Comment on above: Performed By: #### 5 7021-8 ####BHANU Treviño (74949)[facility] ([facility])[address]25 [place] [address] Eosinophils/100 WBC (Bld) 6.5 % Normal 0.0-6.0 [facility] Comment on above: Performed By: #### 5 7021-8 ####BHANU Treviño ([id number])[facility] ([facility])[address]71 [place] [address] Erythrocyte distribution width (RBC) [Ratio] 19.8 % High 11.5-14.5 [facility] Comment on above: Performed By: #### 5 7021-8 ####BHANU Treviño (40384)[facility] ([facility])15962 [place] [address] Hematocrit (Bld) [Volume fraction] 26.8 % Low 41.0-52.0 [facility] Comment on above: Performed By: #### 5 7021-8 ####BHANU Treviño ([id number])[facility] ([facility])20699 [place] [address] Hemoglobin (Bld) [Mass/Vol] 8.5 g/dL Low 13.5-17.5 [facility] Comment on above: Performed By: #### 5 7021-8 ####BHANU Treviño (27299)[facility] ([facility])[address]22 [place] [address] Immature granulocytes (Bld) [#/Vol] 0.05 x10*3/uL Normal 0.00-0.70 [facility] Comment on above: Performed By: #### 5 7021-8 ####BHANU Treviño (94594)[facility] ([facility])99762 [place] [address] Immature granulocytes/100 WBC (Bld) 0.6 % Normal 0.0-0.9 [facility] Comment on above: Result Comment: Christine ture Granulocyte Count (IG) includes promyelocytes, myelocytes and metamyelocytes but does not include bands. Percent differential counts (%) should be interpreted in the context of the absolute cell counts (cells/UL). Performed By: #### 5 7021-8 ####BHANU Treviño (72365)[facility] ([facility])[address] [place] [address] Lymphocytes (Bld) [#/Vol] 1.22 x10*3/uL Normal 1.20-4.80 [facility] Comment on above: Performed By: #### 5 7021-8 ####BHANU Treviño ([id number])[facility] ([facility])26193 [place] [address] Lymphocytes/100 WBC (Bld) 14.0 % Normal 13.0-44.0 [facility] Comment on above: Performed By: #### 5 7021-8 ####BHANU Treviño (73782)[facility] ([facility])18908 [place] [address] MCH (RBC) [Entitic mass] 24.6 pg Low 26.0-34.0 [facility] Comment on above: Performed By: #### 5 7021-8 ####BHANU Treviño (59823)[facility] ([facility])13391 [place] [address] MCHC (RBC) [Mass/Vol] 31.7 g/dL Low 32.0-36.0 [facility] Comment on above: Performed By: #### 5 7021-8 ####BHANU Treviño (05265)[facility] ([facility])34398 [place] [address] MCV (RBC) [Entitic vol] 78 fL Low 80-100 U [facility] Comment on above: Performed By: #### 5 7021-8 ####BHANU Treviño (95852)[facility] ([facility])[address]4842 [place] [address] Monocytes (Bld) [#/Vol] 0.90 x10*3/uL Normal 0.10-1.00 [facility] Comment on above: Performed By: #### 5 7021-8 ####BHANU Treviño (85404)[facility] ([facility])[address]809 [place] [address] Monocytes/100 WBC (Bld) 10.3 % Normal 2.0-10.0 [facility] Comment on above: Performed By: #### 5 7021-8 ####BHANU Treviño ([id number])[facility] ([facility])[address] [place] [address] Neutrophils (Bld) [#/Vol] 5.91 x10*3/uL Normal 1.20-7.70 [facility] Comment on above: Result Comment: Perc ent differential counts (%) should be interpreted in the context of the absolute cell counts (cells/uL). Performed By: #### 5 7021-8 ####BHANU Treviño ([id number])[facility] ([facility])[address]69 [place] [address] Neutrophils/100 WBC (Bld) 67.7 % Normal 40.0-80.0 [facility] Comment on above: Performed By: #### 5 7021-8 ####BHANU Treviño (07854)[facility] ([facility])[address]504 [place] [address] Nucleated RBC/100 WBC (Bld) [Ratio] 0.0 /100 WBCs Normal 0.0-0.0 [facility] Comment on above: Performed By: #### 5 7021-8 ####BHANU Treviño (49484)[facility] ([facility])[address]88 [place] [address] Platelets (Bld) [#/Vol] 760 x10*3/uL High 150-450 [facility] Comment on above: Performed By: #### 5 7021-8 ####BHANU Treviño (56390)[facility] ([facility])54257 [place] [address] RBC (Bld) [#/Vol] 3.46 x10*6/uL Low 4.50-5.90 [facility] Comment on above: Performed By: #### 5 7021-8 ####BHANU Treviño ([id number])[facility] ([facility])40358 [place] [address] WBC (Bld) [#/Vol] 8.7 x10*3/uL Normal 4.4-11.3 [facility] Comment on above: Performed By: #### 5 7021-8 ####BHANU Treviño ([id number])[facility] ([facility])[address]678 [place] [address] Basophils (Bld) [#/Vol] 0.07 x10*3/uL Normal 0.00-0.10 [facility] Comment on above: Performed By: #### 5 7021-8 ####BHANU Treviño (66418)[facility] ([facility])25846 [place] [address] Basophils/100 WBC (Bld) 0.8 % Normal 0.0-2.0 [facility] Comment on above: Performed By: #### 5 7021-8 ####BHANU Treviño ([id number])[facility] ([facility])[address] [place] [address] Eosinophils (Bld) [#/Vol] 0.36 x10*3/uL Normal 0.00-0.70 [facility] Comment on above: Performed By: #### 5 7021-8 ####BHANU Treviño ([id number])[facility] ([facility])[address] [place] [address] 12302 Eosinophils/100 WBC (Bld) 4.2 % Normal 0.0-6.0 [facility] Comment on above: Performed By: #### 5 7021-8 ####BHANU Treviño (12897)[facility] ([facility])[address] [place] [address] 11577 Erythrocyte distribution width (RBC) [Ratio] 19.9 % High 11.5-14.5 [facility] Comment on above: Performed By: #### 5 7021-8 ####BHANU Treviño ([id number])[facility] ([facility])[address] [place] [address]0867 Hematocrit (Bld) [Volume fraction] 28.0 % Low 41.0-52.0 [facility] Comment on above: Performed By: #### 5 7021-8 ####BHANU Treviño ([id number])[facility] ([facility])[address] [place] [address] 31807 Hemoglobin (Bld) [Mass/Vol] 8.7 g/dL Low 13.5-17.5 [facility] Comment on above: Performed By: #### 5 7021-8 ####BHANU Treviño ([id number])[facility] ([facility])[address] [place] [address]323 Immature granulocytes (Bld) [#/Vol] 0.05 x10*3/uL Normal 0.00-0.70 [facility] Comment on above: Performed By: #### 5 7021-8 ####BHANU Treviño (33290)[facility] ([facility])[address] [place] [address] [place] [address] Immature granulocytes/100 WBC (Bld) 0.6 % Normal 0.0-0.9 [facility] Comment on above: Result Comment: Christine ture Granulocyte Count (IG) includes promyelocytes, myelocytes and metamyelocytes but does not include bands. Percent differential counts (%) should be interpreted in the context of the absolute cell counts (cells/UL). Performed By: #### 5 7021-8 ####BHANU Treviño ([id number])[facility] ([facility])[address] [place] [address] Lymphocytes (Bld) [#/Vol] 0.89 x10*3/uL Low 1.20-4.80 [facility] Comment on above: Performed By: #### 5 7021-8 ####BHANU Treviño ([id number])[facility] ([facility])[address] [place] [address] Lymphocytes/100 WBC (Bld) 10.5 % Normal 13.0-44.0 [facility] Comment on above: Performed By: #### 5 7021-8 ####BHANU Treviño ([id number])[facility] ([facility])[address] [place] [address] MCH (RBC) [Entitic mass] 24.4 pg Low 26.0-34.0 [facility] Comment on above: Performed By: #### 5 7021-8 ####BHANU Treviño ([id number])[facility] ([facility])[address] [place] [address] MCHC (RBC) [Mass/Vol] 31.1 g/dL Low 32.0-36.0 [facility] Comment on above: Performed By: #### 5 7021-8 ####BHANU Treviño ([id number])[facility] ([facility])[address] [place] [address] MCV (RBC) [Entitic vol] 78 fL Low 80-100 U [facility] Comment on above: Performed By: #### 5 7021-8 ####BHANU Treviño ([id number])[facility] ([facility])[address] [place] [address] Monocytes (Bld) [#/Vol] 0.89 x10*3/uL Normal 0.10-1.00 [facility] Comment on above: Performed By: #### 5 7021-8 ####BHANU Treviño ([id number])[facility] ([facility])[address] [place] [address] Monocytes/100 WBC (Bld) 10.5 % Normal 2.0-10.0 [facility] Comment on above: Performed By: #### 5 7021-8 ####BHANU Treviño ([id number])[facility] ([facility])[address] [place] [address] Neutrophils (Bld) [#/Vol] 6.23 x10*3/uL Normal 1.20-7.70 [facility] Comment on above: Result Comment: Perc ent differential counts (%) should be interpreted in the context of the absolute cell counts (cells/uL). Performed By: #### 5 7021-8 ####BHANU Treviño ([id number])[facility] ([facility])[address] [place] [address] Neutrophils/100 WBC (Bld) 73.4 % Normal 40.0-80.0 [facility] Comment on above: Performed By: #### 5 7021-8 ####BHANU Treviño ([id number])[facility] ([facility])[address] [place] [address] Nucleated RBC/100 WBC (Bld) [Ratio] 0.0 /100 WBCs Normal 0.0-0.0 [facility] Comment on above: Performed By: #### 5 7021-8 ####BHANU Treviño ([id number])[facility] ([facility])[address] [place] [address] Platelets (Bld) [#/Vol] 749 x10*3/uL High 150-450 [facility] Comment on above: Performed By: #### 5 7021-8 ####BHANU Treviño ([id number])[facility] ([facility])[address] [place] [address] RBC (Bld) [#/Vol] 3.57 x10*6/uL Low 4.50-5.90 [facility] Comment on above: Performed By: #### 5 7021-8 ####BHANU Treviño ([id number])[facility] ([facility])[address] [place] [address] WBC (Bld) [#/Vol] 8.5 x10*3/uL Normal 4.4-11.3 [facility] Comment on above: Performed By: #### 5 7021-8 ####BHANU Treviño ([id number])[facility] ([facility])[address] [place] [address] Comprehensive metabolic 2000 panelon 01-23-2025 Albumin BCP dye [Mass/Vol] 2.3 g/dL Low 3.4-5.0 [facility] Comment on above: Performed By: #### 2 4323-8 ####BHANU Treviño ([id number])[facility] ([facility])[address] [place] [address] ALP [Catalytic activity/Vol] 72 U/L Normal 33-120 [facility] Comment on above: Performed By: #### 2 4323-8 ####BHANU GREGORY L ([id number])[facility] ([facility])[address]655 [place] [address] ALT With P-5'-P [Catalytic activity/Vol] 38 U/L Normal 10-52 [facility] Comment on above: Result Comment: Sydni ents treated with Sulfasalazine may generate falsely decreased results for ALT. Performed By: #### 2 4323-8 ####BHANU Treviño ([id number])[facility] ([facility])[address]27 [place] [address] Anion gap [Moles/Vol] 14 mmol/L Normal 10-20 [facility] Comment on above: Performed By: #### 2 4323-8 ####BHANU Treviño ([id number])[facility] ([facility])[address] [place] [address] AST With P-5'-P [Catalytic activity/Vol] 56 U/L High 9-39 [facility] Comment on above: Performed By: #### 2 4323-8 ####BHANU Treviño ([id number])[facility] ([facility])[address]659 [place] [address] Bilirubin [Mass/Vol] 0.4 mg/dL Normal 0.0-1.2 [facility] Comment on above: Performed By: #### 2 4323-8 ####BHANU Treviño (63081)[facility] ([facility])[address] [place] [address] Calcium [Mass/Vol] 8.0 mg/dL Low 8.6-10.6 [facility] Comment on above: Performed By: #### 2 4323-8 ####BHANU Treviño ([id number])[facility] ([facility])[address] [place] [address] Chloride [Moles/Vol] 102 mmol/L Normal 98-107 [facility] Comment on above: Performed By: #### 2 4323-8 ####BHANU Treviño ([id number])[facility] ([facility])[address]503 [place] [address] CO2 [Moles/Vol] 27 mmol/L Normal 21-32 [facility] Comment on above: Performed By: #### 2 4323-8 ####BHANU Treviño ([id number])[facility] ([facility])[address]57 [place] [address] Creatinine [Mass/Vol] 1.23 mg/dL Normal 0.50-1.30 [facility] Comment on above: Performed By: #### 2 4323-8 ####BHANU Treviño ([id number])[facility] ([facility])[address] [place] [address] Glomerular filtration rate/1.73 sq M.predicted 71 mL/min/1.73m*2 Normal >60 [facility] Comment on above: Result Comment: Calc ulations of estimated GFR are performed using the 2020 CKD-EPI Study Refit equation without the race variable for the IDMS-Traceable creatinine methods.https://jasn.asnjournals.org/content/early/ /ASN.4392566058 Performed By: #### 2 4323-8 ####BHANU Treviño ([id number])[facility] ([facility])[address] [place] [address] Glucose [Mass/Vol] 87 mg/dL Normal 74-99 [facility] Comment on above: Performed By: #### 2 4323-8 ####BHANU Treviño ([id number])[facility] ([facility])[address]753 [place] [address] Potassium [Moles/Vol] 4.7 mmol/L Normal 3.5-5.3 [facility] Comment on above: Performed By: #### 2 4323-8 ####BHANU GREGORY L ([id number])[facility] ([facility])[address]32 [place] [address] Protein [Mass/Vol] 5.8 g/dL Low 6.4-8.2 [facility] Comment on above: Performed By: #### 2 4323-8 ####BHANU GREGORY L ([id number])[facility] ([facility])[address]99 [place] [address] Sodium [Moles/Vol] 138 mmol/L Normal 136-145 [facility] Comment on above: Performed By: #### 2 4323-8 ####BHANU GREGORY L ([id number])[facility] ([facility])[address]605 [place] [address] Urea nitrogen [Mass/Vol] 8 mg/dL Normal 6-23 [facility] Comment on above: Performed By: #### 2 4323-8 ####BHANU Treviño ([id number])[facility] ([facility])[address] [place] [address] Magnesiumon 01-23-2025 Magnesium [Mass/Vol] 1.98 mg/dL Normal 1.60-2.40 [facility] Comment on above: Performed By: #### 1 9123-9 ####BHANU Treviño (85985)[facility] ([facility])[address] [place] [address] CBC W Auto Differential pane l (Bld)on 01-22-2025 Basophils (Bld) [#/Vol] 0.07 x10*3/uL Normal 0.00-0.10 [facility] Comment on above: Performed By: #### 5 7021-8 ####BHANU Treviño (96025)[facility] ([facility])[address] [place] [address] Basophils/100 WBC (Bld) 0.8 % Normal 0.0-2.0 [facility] Comment on above: Performed By: #### 5 7021-8 ####BHANU Treviño ([id number])[facility] ([facility])[address]261 [place] [address] Eosinophils (Bld) [#/Vol] 0.11 x10*3/uL Normal 0.00-0.70 [facility] Comment on above: Performed By: #### 5 7021-8 ####BHANU Treviño (48588)[facility] ([facility])[address] [place] [address] Eosinophils/100 WBC (Bld) 1.2 % Normal 0.0-6.0 [facility] Comment on above: Performed By: #### 5 7021-8 ####BHANU Treviño ([id number])[facility] ([facility])[address]71 [place] [address] Erythrocyte distribution width (RBC) [Ratio] 19.7 % High 11.5-14.5 [facility] Comment on above: Performed By: #### 5 7021-8 ####BHANU Treviño (82138)[facility] ([facility])[address] [place] [address] Hematocrit (Bld) [Volume fraction] 27.5 % Low 41.0-52.0 [facility] Comment on above: Performed By: #### 5 7021-8 ####BHANU Treviño (86843)[facility] ([facility])[address]991 [place] [address] Hemoglobin (Bld) [Mass/Vol] 8.5 g/dL Low 13.5-17.5 [facility] Comment on above: Performed By: #### 5 7021-8 ####BHANU Treviño (08392)[facility] ([facility])[address]24 [place] [address] Immature granulocytes (Bld) [#/Vol] 0.03 x10*3/uL Normal 0.00-0.70 [facility] Comment on above: Performed By: #### 5 7021-8 ####BHANU Treviño (45987)[facility] ([facility])[address]167 [place] [address] Immature granulocytes/100 WBC (Bld) 0.3 % Normal 0.0-0.9 [facility] Comment on above: Result Comment: Christine ture Granulocyte Count (IG) includes promyelocytes, myelocytes and metamyelocytes but does not include bands. Percent differential counts (%) should be interpreted in the context of the absolute cell counts (cells/UL). Performed By: #### 5 7021-8 ####BHANU Treviño (32557)[facility] ([facility])[address]31 [place] [address] Lymphocytes (Bld) [#/Vol] 1.05 x10*3/uL Low 1.20-4.80 [facility] Comment on above: Performed By: #### 5 7021-8 ####BHANU Treviño (30845)[facility] ([facility])[address]89 [place] [address] Lymphocytes/100 WBC (Bld) 11.7 % Normal 13.0-44.0 [facility] Comment on above: Performed By: #### 5 7021-8 ####BHANU Treviño (90812)[facility] ([facility])[address]773 [place] [address] MCH (RBC) [Entitic mass] 23.8 pg Low 26.0-34.0 [facility] Comment on above: Performed By: #### 5 7021-8 ####BHANU Treviño (79759)[facility] ([facility])[address]80 [place] [address] MCHC (RBC) [Mass/Vol] 30.9 g/dL Low 32.0-36.0 [facility] Comment on above: Performed By: #### 5 7021-8 ####BHANU Treviño (72339)[facility] ([facility])[address]02 [place] [address] MCV (RBC) [Entitic vol] 77 fL Low 80-100 U [facility] Comment on above: Performed By: #### 5 7021-8 ####BHANU Treviño ([id number])[facility] ([facility])[address]13 [place] [address] Monocytes (Bld) [#/Vol] 1.01 x10*3/uL High 0.10-1.00 [facility] Comment on above: Performed By: #### 5 7021-8 ####BHANU Treviño ([id number])[facility] ([facility])[address]297 [place] [address] Monocytes/100 WBC (Bld) 11.3 % Normal 2.0-10.0 U [facility] Comment on above: Performed By: #### 5 7021-8 ####BHANU Treviño (18155)[facility] ([facility])[address]28 [place] [address] Neutrophils (Bld) [#/Vol] 6.68 x10*3/uL Normal 1.20-7.70 [facility] Comment on above: Result Comment: Perc ent differential counts (%) should be interpreted in the context of the absolute cell counts (cells/uL). Performed By: #### 5 7021-8 ####BHANU Treviño (60598)[facility] ([facility])[address]48 [place] [address] Neutrophils/100 WBC (Bld) 74.7 % Normal 40.0-80.0 [facility] Comment on above: Performed By: #### 5 7021-8 ####BHANU Treviño ([id number])[facility] ([facility])[address]107 [place] [address] Nucleated RBC/100 WBC (Bld) [Ratio] 0.0 /100 WBCs Normal 0.0-0.0 [facility] Comment on above: Performed By: #### 5 7021-8 ####BHANU GREGORY L (06018)[facility] ([facility])[address]393 [place] [address] Platelets (Bld) [#/Vol] 769 x10*3/uL High 150-450 [facility] Comment on above: Performed By: #### 5 7021-8 ####BHANU Treviño (60846)[facility] ([facility])[address]70 [place] [address] RBC (Bld) [#/Vol] 3.57 x10*6/uL Low 4.50-5.90 [facility] Comment on above: Performed By: #### 5 7021-8 ####BHANU GREGORY L (53359)[facility] ([facility])[address]17 [place] [address] WBC (Bld) [#/Vol] 9.0 x10*3/uL Normal 4.4-11.3 [facility] Comment on above: Performed By: #### 5 7021-8 ####BHANU Treviño ([id number])[facility] ([facility])[address]113 [place] [address] Basophils (Bld) [#/Vol] 0.06 x10*3/uL Normal 0.00-0.10 [facility] Comment on above: Performed By: #### 5 7021-8 ####BHANU Treviño (90092)[facility] ([facility])[address]38 [place] [address] Basophils/100 WBC (Bld) 0.7 % Normal 0.0-2.0 [facility] Comment on above: Performed By: #### 5 7021-8 ####BHANU Treviño (71325)[facility] ([facility])[address] [place] [address] Eosinophils (Bld) [#/Vol] 0.51 x10*3/uL Normal 0.00-0.70 [facility] Comment on above: Performed By: #### 5 7021-8 ####BHANU Treviño ([id number])[facility] ([facility])[address] [place] [address] Eosinophils/100 WBC (Bld) 6.3 % Normal 0.0-6.0 [facility] Comment on above: Performed By: #### 5 7021-8 ####BHANU Treviño (35305)[facility] ([facility])[address]291 [place] [address] Erythrocyte distribution width (RBC) [Ratio] 19.9 % High 11.5-14.5 [facility] Comment on above: Performed By: #### 5 7021-8 ####BHANU Treviño (64192)[facility] ([facility])[address] [place] [address] Hematocrit (Bld) [Volume fraction] 26.6 % Low 41.0-52.0 [facility] Comment on above: Performed By: #### 5 7021-8 ####BHANU Treviño (23988)[facility] ([facility])[address]420 [place] [address] Hemoglobin (Bld) [Mass/Vol] 8.4 g/dL Low 13.5-17.5 [facility] Comment on above: Performed By: #### 5 7021-8 ####BHANU Treviño (19850)[facility] ([facility])[address]138 [place] [address] Immature granulocytes (Bld) [#/Vol] 0.05 x10*3/uL Normal 0.00-0.70 [facility] Comment on above: Performed By: #### 5 7021-8 ####BHANU Treviño (47291)[facility] ([facility])[address]70 [place] [address] Immature granulocytes/100 WBC (Bld) 0.6 % Normal 0.0-0.9 [facility] Comment on above: Result Comment: Christine ture Granulocyte Count (IG) includes promyelocytes, myelocytes and metamyelocytes but does not include bands. Percent differential counts (%) should be interpreted in the context of the absolute cell counts (cells/UL). Performed By: #### 5 7021-8 ####BHANU Treviño (56221)[facility] ([facility])[address]298 [place] [address] Lymphocytes (Bld) [#/Vol] 1.07 x10*3/uL Low 1.20-4.80 [facility] Comment on above: Performed By: #### 5 7021-8 ####BHANU Treviño ([id number])[facility] ([facility])[address]778 [place] [address] Lymphocytes/100 WBC (Bld) 13.2 % Normal 13.0-44.0 [facility] Comment on above: Performed By: #### 5 7021-8 ####BHANU Treviño (13400)[facility] ([facility])[address]89 [place] [address] MCH (RBC) [Entitic mass] 24.3 pg Low 26.0-34.0 [facility] Comment on above: Performed By: #### 5 7021-8 ####BHANU Treviño (81261)[facility] ([facility])[address]31 [place] [address] MCHC (RBC) [Mass/Vol] 31.6 g/dL Low 32.0-36.0 [facility] Comment on above: Performed By: #### 5 7021-8 ####BHANU GREGORY L ([id number])[facility] ([facility])[address]85 [place] [address] MCV (RBC) [Entitic vol] 77 fL Low 80-100 U [facility] Comment on above: Performed By: #### 5 7021-8 ####BHANU Treviño (24605)[facility] ([facility])[address]333 [place] [address] Monocytes (Bld) [#/Vol] 0.88 x10*3/uL Normal 0.10-1.00 [facility] Comment on above: Performed By: #### 5 7021-8 ####BHANU Treviño (38035)[facility] ([facility])[address]885 [place] [address] Monocytes/100 WBC (Bld) 10.8 % Normal 2.0-10.0 [facility] Comment on above: Performed By: #### 5 7021-8 ####BHANU GREGORY L (18807)[facility] ([facility])[address]02 [place] [address] Neutrophils (Bld) [#/Vol] 5.55 x10*3/uL Normal 1.20-7.70 [facility] Comment on above: Result Comment: Perc ent differential counts (%) should be interpreted in the context of the absolute cell counts (cells/uL). Performed By: #### 5 7021-8 ####BHANU FLEMINGMOTZALANNA L (03915)[facility] ([facility])[address]71 [place] [address] Neutrophils/100 WBC (Bld) 68.4 % Normal 40.0-80.0 [facility] Comment on above: Performed By: #### 5 7021-8 ####BHANU Treviño (56434)[facility] ([facility])[address]45 [place] [address] Nucleated RBC/100 WBC (Bld) [Ratio] 0.0 /100 WBCs Normal 0.0-0.0 [facility] Comment on above: Performed By: #### 5 7021-8 ####BHANU Treviño (10221)[facility] ([facility])[address] [place] [address] Platelets (Bld) [#/Vol] 713 x10*3/uL High 150-450 [facility] Comment on above: Performed By: #### 5 7021-8 ####BHANU Treviño (02705)[facility] ([facility])[address] [place] [address] RBC (Bld) [#/Vol] 3.45 x10*6/uL Low 4.50-5.90 [facility] Comment on above: Performed By: #### 5 7021-8 ####BHANU Treviño (57912)[facility] ([facility])[address] [place] [address] WBC (Bld) [#/Vol] 8.1 x10*3/uL Normal 4.4-11.3 [facility] Comment on above: Performed By: #### 5 7021-8 ####BHANU Treviño ([id number])[facility] ([facility])[address] [place] [address] Comprehensive metabolic 2000 panelon 01-22-2025 Albumin BCP dye [Mass/Vol] 2.2 g/dL Low 3.4-5.0 [facility] Comment on above: Performed By: #### 2 4323-8 ####BHANU Treviño ([id number])[facility] ([facility])[address]174 [place] [address] ALP [Catalytic activity/Vol] 68 U/L Normal 33-120 [facility] Comment on above: Performed By: #### 2 4323-8 ####BHANU Treviño (79741)[facility] ([facility])[address]65 [place] [address] ALT With P-5'-P [Catalytic activity/Vol] 34 U/L Normal 10-52 [facility] Comment on above: Result Comment: Sydni ents treated with Sulfasalazine may generate falsely decreased results for ALT. Performed By: #### 2 4323-8 ####BHANU Treviño (91708)[facility] ([facility])[address]696 [place] [address] Anion gap [Moles/Vol] 14 mmol/L Normal 10-20 [facility] Comment on above: Performed By: #### 2 4323-8 ####BHANU Treviño (59372)[facility] ([facility])[address]56 [place] [address] AST With P-5'-P [Catalytic activity/Vol] 57 U/L High 9-39 [facility] Comment on above: Performed By: #### 2 4323-8 ####BHANU Treviño ([id number])[facility] ([facility])[address]1932 [place] [address] Bilirubin [Mass/Vol] 0.4 mg/dL Normal 0.0-1.2 [facility] Comment on above: Performed By: #### 2 4323-8 ####BHANU Treviño (76774)[facility] ([facility])[address]100 [place] [address] Calcium [Mass/Vol] 8.1 mg/dL Low 8.6-10.6 [facility] Comment on above: Performed By: #### 2 4323-8 ####BHANU Treviño (58467)[facility] ([facility])[address]640 [place] [address] Chloride [Moles/Vol] 103 mmol/L Normal 98-107 [facility] Comment on above: Performed By: #### 2 4323-8 ####BHANU MATOSER L (71052)[facility] ([facility])[address]38 [place] [address] CO2 [Moles/Vol] 27 mmol/L Normal 21-32 [facility] Comment on above: Performed By: #### 2 4323-8 ####BHANU LAUREANOTZER L (68573)[facility] ([facility])[address]77 [place] [address] Creatinine [Mass/Vol] 1.11 mg/dL Normal 0.50-1.30 [facility] Comment on above: Performed By: #### 2 4323-8 ####BHANU GREGORY L (94218)[facility] ([facility])[address] [place] [address] Glomerular filtration rate/1.73 sq M.predicted 80 mL/min/1.73m*2 Normal >60 [facility] Comment on above: Result Comment: Calc ulations of estimated GFR are performed using the 2020 CKD-EPI Study Refit equation without the race variable for the IDMS-Traceable creatinine methods.https://jasn.asnjournals.org/content/early/ /ASN.3904461764 Performed By: #### 2 4323-8 ####BHANU GREGORY L (57252)[facility] ([facility])[address]74 [place] [address] Glucose [Mass/Vol] 95 mg/dL Normal 74-99 [facility] Comment on above: Performed By: #### 2 4323-8 ####BHANU LAUREANOTZER L (54126)[facility] ([facility])[address]321 [place] [address] Potassium [Moles/Vol] 4.5 mmol/L Normal 3.5-5.3 [facility] Comment on above: Performed By: #### 2 4323-8 ####BHANU LAUREANOTZER L (71296)[facility] ([facility])[address]67 [place] [address] Protein [Mass/Vol] 5.4 g/dL Low 6.4-8.2 [facility] Comment on above: Performed By: #### 2 4323-8 ####BHANU Treviño (81390)[facility] ([facility])[address]759 [place] [address] Sodium [Moles/Vol] 139 mmol/L Normal 136-145 [facility] Comment on above: Performed By: #### 2 4323-8 ####BHANU Treviño (40994)[facility] ([facility])[address]388 [place] [address] Urea nitrogen [Mass/Vol] 7 mg/dL Normal 6-23 [facility] Comment on above: Performed By: #### 2 4323-8 ####BHANU Treviño (57589)[facility] ([facility])[address]265 [place] [address] Creatine kinaseon 01-22-2025 CK [Catalytic activity/Vol] 21 U/L Normal 0-325 [facility] Comment on above: Performed By: #### 2 157-6 ####BHANU Treviño (11624)[facility] ([facility])[address]77 [place] [address] Magnesiumon 01-22-2025 Magnesium [Mass/Vol] 1.96 mg/dL Normal 1.60-2.40 [facility] Comment on above: Performed By: #### 1 9123-9 ####BHANU Treviño (67813)[facility] ([facility])[address]48 [place] [address] Blood type and Indirect anti body screen panel (Bld)on 01-21-2025 ABO group Nom (Bld) A Normal [facility] Comment on above: Performed By: #### 3 4532-2 ####BHANU Treviño ([id number])[facility] ([facility] [place] [address] Blood group antibody screen Ql Negative Normal [facility] Comment on above: Performed By: #### 3 4532-2 ####BHANU Treviño ([id number])[facility] ([facility])[address] [place] [address] D Ag Ql (Bld) Positive Normal [facility] Comment on above: Performed By: #### 3 4532-2 ####BHANU Treviño ([id number])[facility] ([facility])[address] [place] [place] [address] CBC W Auto Differential pane l (Bld)on 01-21-2025 Basophils (Bld) [#/Vol] 0.06 x10*3/uL Normal 0.00-0.10 [facility] Comment on above: Performed By: #### 5 7021-8 ####BHANU Treviño ([id number])[facility] ([facility])[address] [place] [address] Basophils/100 WBC (Bld) 0.7 % Normal 0.0-2.0 [facility] Comment on above: Performed By: #### 5 7021-8 ####BHANU Treviño ([id number])[facility] ([facility])[id number] [place] [id number] Eosinophils (Bld) [#/Vol] 0.24 x10*3/uL Normal 0.00-0.70 [facility] Comment on above: Performed By: #### 5 7021-8 ####BHANU Treviño ([id number])[facility] ([facility])[address] [place] [address] Eosinophils/100 WBC (Bld) 2.7 % Normal 0.0-6.0 [facility] Comment on above: Performed By: #### 5 7021-8 ####BHANU Treviño ([id number])[facility] ([facility])[address] [place] [address] Erythrocyte distribution width (RBC) [Ratio] 19.6 % High 11.5-14.5 [facility] Comment on above: Performed By: #### 5 7021-8 ####BHANU Treviño ([id number])[facility] ([facility])[address] [place] [address] Hematocrit (Bld) [Volume fraction] 25.9 % Low 41.0-52.0 [facility] Comment on above: Performed By: #### 5 7021-8 ####BHANU GREGORY L ([id number])[facility] ([facility])[address]89 [place] [address] Hemoglobin (Bld) [Mass/Vol] 8.3 g/dL Low 13.5-17.5 [facility] Comment on above: Performed By: #### 5 7021-8 ####BHANU Treviño ([id number])[facility] ([facility])[address] [place] [address] Immature granulocytes (Bld) [#/Vol] 0.03 x10*3/uL Normal 0.00-0.70 [facility] Comment on above: Performed By: #### 5 7021-8 ####BHANU Treviño ([id number])[facility] ([facility])[address] [place] [address] Immature granulocytes/100 WBC (Bld) 0.3 % Normal 0.0-0.9 [facility] Comment on above: Result Comment: Christine ture Granulocyte Count (IG) includes promyelocytes, myelocytes and metamyelocytes but does not include bands. Percent differential counts (%) should be interpreted in the context of the absolute cell counts (cells/UL). Performed By: #### 5 7021-8 ####BHANU Treviño ([id number])[facility] ([facility])[address] [place] [address] Lymphocytes (Bld) [#/Vol] 1.18 x10*3/uL Low 1.20-4.80 [facility] Comment on above: Performed By: #### 5 7021-8 ####BHANU GREGORY L ([id number])[facility] ([facility])[address]361 [place] [address] Lymphocytes/100 WBC (Bld) 13.5 % Normal 13.0-44.0 [facility] Comment on above: Performed By: #### 5 7021-8 ####BHANU Treviño ([id number])[facility] ([facility])[address] [place] [address]1883 MCH (RBC) [Entitic mass] 24.7 pg Low 26.0-34.0 [facility] Comment on above: Performed By: #### 5 7021-8 ####BHANU Treviño ([id number])[facility] ([facility])[address] [place] [address] 34036 MCHC (RBC) [Mass/Vol] 32.0 g/dL Normal 32.0-36.0 [facility] Comment on above: Performed By: #### 5 7021-8 ####BHANU Treviño ([id number])[facility] ([facility])[address] [place] [address] 16896 MCV (RBC) [Entitic vol] 77 fL Low 80-100 [facility] Comment on above: Performed By: #### 5 7021-8 ####BHANU Treviño ([id number])[facility] ([facility])[address] [place] [address] Monocytes (Bld) [#/Vol] 1.01 x10*3/uL High 0.10-1.00 [facility] Comment on above: Performed By: #### 5 7021-8 ####BHANU Treviño ([id number])[facility] ([facility])[address] [place] [address] 16477 Monocytes/100 WBC (Bld) 11.5 % Normal 2.0-10.0 [facility] Comment on above: Performed By: #### 5 7021-8 ####BHANU Treviño ([id number])[facility] ([facility])[address] [place] [address] Neutrophils (Bld) [#/Vol] 6.25 x10*3/uL Normal 1.20-7.70 [facility] Comment on above: Result Comment: Perc ent differential counts (%) should be interpreted in the context of the absolute cell counts (cells/uL). Performed By: #### 5 7021-8 ####BHANU Treviño ([id number])[facility] ([facility])[address] [place] [address] Neutrophils/100 WBC (Bld) 71.3 % Normal 40.0-80.0 [facility] Comment on above: Performed By: #### 5 7021-8 ####BHANU Treviño ([id number])[facility] ([facility])[address]69 [place] [address] Nucleated RBC/100 WBC (Bld) [Ratio] 0.0 /100 WBCs Normal 0.0-0.0 [facility] Comment on above: Performed By: #### 5 7021-8 ####BHANU Treviño ([id number])[facility] ([facility])[address]309 [place] [address] Platelets (Bld) [#/Vol] 730 x10*3/uL High 150-450 [facility] Comment on above: Performed By: #### 5 7021-8 ####BHANU Treviño (19702)[facility] ([facility])[address]40 [place] [address] RBC (Bld) [#/Vol] 3.36 x10*6/uL Low 4.50-5.90 [facility] Comment on above: Performed By: #### 5 7021-8 ####BHANU GREGORY L ([id number])[facility] ([facility])[address] [place] [address] WBC (Bld) [#/Vol] 8.8 x10*3/uL Normal 4.4-11.3 [facility] Comment on above: Performed By: #### 5 7021-8 ####BHANU GREGORY L ([id number])[facility] ([facility])[address]872 [place] [address] Basophils (Bld) [#/Vol] 0.07 x10*3/uL Normal 0.00-0.10 [facility] Comment on above: Performed By: #### 5 7021-8 ####BHANU Treviño (83546)[facility] ([facility])[address]34 [place] [address] Basophils/100 WBC (Bld) 0.8 % Normal 0.0-2.0 [facility] Comment on above: Performed By: #### 5 7021-8 ####BHANU Treviño ([id number])[facility] ([facility])[address]27 [place] [address] Eosinophils (Bld) [#/Vol] 0.16 x10*3/uL Normal 0.00-0.70 [facility] Comment on above: Performed By: #### 5 7021-8 ####BHANU Treviño ([id number])[facility] ([facility])[address]32 [place] [address] Eosinophils/100 WBC (Bld) 1.7 % Normal 0.0-6.0 [facility] Comment on above: Performed By: #### 5 7021-8 ####BHANU Treviño (80054)[facility] ([facility])[address]349 [place] [address] Erythrocyte distribution width (RBC) [Ratio] 19.5 % High 11.5-14.5 [facility] Comment on above: Performed By: #### 5 7021-8 ####BHANU Treviño ([id number])[facility] ([facility])[address]96 [place] [address] Hematocrit (Bld) [Volume fraction] 25.5 % Low 41.0-52.0 [facility] Comment on above: Performed By: #### 5 7021-8 ####BHANU Treviño ([id number])[facility] ([facility])[address]180 [place] [address] Hemoglobin (Bld) [Mass/Vol] 8.3 g/dL Low 13.5-17.5 [facility] Comment on above: Performed By: #### 5 7021-8 ####BHANU Treviño (54089)[facility] ([facility])[address]63 [place] [address] Immature granulocytes (Bld) [#/Vol] 0.05 x10*3/uL Normal 0.00-0.70 [facility] Comment on above: Performed By: #### 5 7021-8 ####BHANU Treviño ([id number])[facility] ([facility])[address]75 [place] [address] Immature granulocytes/100 WBC (Bld) 0.5 % Normal 0.0-0.9 [facility] Comment on above: Result Comment: Christine ture Granulocyte Count (IG) includes promyelocytes, myelocytes and metamyelocytes but does not include bands. Percent differential counts (%) should be interpreted in the context of the absolute cell counts (cells/UL). Performed By: #### 5 7021-8 ####BHANU Treviño ([id number])[facility] ([facility])[address] [place] [address] Lymphocytes (Bld) [#/Vol] 0.99 x10*3/uL Low 1.20-4.80 [facility] Comment on above: Performed By: #### 5 7021-8 ####BHANU Treviño ([id number])[facility] ([facility])[address]40 [place] [address] Lymphocytes/100 WBC (Bld) 10.8 % Normal 13.0-44.0 [facility] Comment on above: Performed By: #### 5 7021-8 ####BHANU Treviño ([id number])[facility] ([facility])[address] [place] [address]308 MCH (RBC) [Entitic mass] 25.0 pg Low 26.0-34.0 [facility] Comment on above: Performed By: #### 5 7021-8 ####BHANU Treviño ([id number])[facility] ([facility])[address]997 [place] [address] MCHC (RBC) [Mass/Vol] 32.5 g/dL Normal 32.0-36.0 [facility] Comment on above: Performed By: #### 5 7021-8 ####BHANU Treviño ([id number])[facility] ([facility])[address]645 [place] [address] MCV (RBC) [Entitic vol] 77 fL Low 80-100 [facility] Comment on above: Performed By: #### 5 7021-8 ####BHANU Treviño ([id number])[facility] ([facility])[address] [place] [address] Monocytes (Bld) [#/Vol] 1.02 x10*3/uL High 0.10-1.00 [facility] Comment on above: Performed By: #### 5 7021-8 ####BHANU Treviño ([id number])[facility] ([facility])26732 [place] [address] Monocytes/100 WBC (Bld) 11.1 % Normal 2.0-10.0 [facility] Comment on above: Performed By: #### 5 7021-8 ####BHANU Treviño ([id number])[facility] ([facility])[address] [place] [address]00 Neutrophils (Bld) [#/Vol] 6.90 x10*3/uL Normal 1.20-7.70 [facility] Comment on above: Result Comment: Perc ent differential counts (%) should be interpreted in the context of the absolute cell counts (cells/uL). Performed By: #### 5 7021-8 ####BHANU Treviño ([id number])[facility] ([facility])[address]43 [place] [address] Neutrophils/100 WBC (Bld) 75.1 % Normal 40.0-80.0 [facility] Comment on above: Performed By: #### 5 7021-8 ####BHANU Treviño ([id number])[facility] ([facility])30482 [place] [address] Nucleated RBC/100 WBC (Bld) [Ratio] 0.0 /100 WBCs Normal 0.0-0.0 [facility] Comment on above: Performed By: #### 5 7021-8 ####BHANU Treviño (65955)[facility] ([facility])[address]46 [place] [address] Platelets (Bld) [#/Vol] 690 x10*3/uL High 150-450 [facility] Comment on above: Performed By: #### 5 7021-8 ####BHANU Treviño (98607)[facility] ([facility])[address] [place] [address] 88031 RBC (Bld) [#/Vol] 3.32 x10*6/uL Low 4.50-5.90 [facility] Comment on above: Performed By: #### 5 7021-8 ####BHANU Treviño ([id number])[facility] ([facility])[address] [place] [address]01 WBC (Bld) [#/Vol] 9.2 x10*3/uL Normal 4.4-11.3 [facility] Comment on above: Performed By: #### 5 7021-8 ####BHANU Treviño ([id number])[facility] ([facility])[address] [place] [address] 39336 Comprehensive metabolic 2000 panelon 01-21-2025 Albumin BCP dye [Mass/Vol] 2.2 g/dL Low 3.4-5.0 [facility] Comment on above: Performed By: #### 2 4323-8 ####BHANU Treviño ([id number])[facility] ([facility])[address] [place] [address] 97091 ALP [Catalytic activity/Vol] 62 U/L Normal 33-120 [facility] Comment on above: Performed By: #### 2 4323-8 ####BHANU Treviño (05217)[facility] ([facility])[address]509 [place] [address] ALT With P-5'-P [Catalytic activity/Vol] 24 U/L Normal 10-52 [facility] Comment on above: Result Comment: Sydni ents treated with Sulfasalazine may generate falsely decreased results for ALT. Performed By: #### 2 4323-8 ####BHANU Treviño ([id number])[facility] ([facility])[address]64 [place] [address] Anion gap [Moles/Vol] 12 mmol/L Normal 10-20 [facility] Comment on above: Performed By: #### 2 4323-8 ####BHANU Treviño ([id number])[facility] ([facility])[address]329 [place] [address] AST With P-5'-P [Catalytic activity/Vol] 40 U/L High 9-39 [facility] Comment on above: Performed By: #### 2 4323-8 ####BHANU GREGORY L (96429)[facility] ([facility])14909 [place] [address] Bilirubin [Mass/Vol] 0.4 mg/dL Normal 0.0-1.2 [facility] Comment on above: Performed By: #### 2 4323-8 ####BHANU Treviño (57326)[facility] ([facility])13708 [place] [address] Calcium [Mass/Vol] 8.0 mg/dL Low 8.6-10.6 [facility] Comment on above: Performed By: #### 2 4323-8 ####BHANU GREGORY L ([id number])[facility] ([facility])[address]55 [place] [address] Chloride [Moles/Vol] 104 mmol/L Normal 98-107 [facility] Comment on above: Performed By: #### 2 4323-8 ####BHANU GREGORY L ([id number])[facility] ([facility])[address]20 [place] [address] CO2 [Moles/Vol] 26 mmol/L Normal 21-32 [facility] Comment on above: Performed By: #### 2 4323-8 ####BHANU Treviño ([id number])[facility] ([facility])[address]161 [place] [address] Creatinine [Mass/Vol] 1.09 mg/dL Normal 0.50-1.30 [facility] Comment on above: Performed By: #### 2 4323-8 ####BHANU Treviño (85554)[facility] ([facility])[address]288 [place] [address] Glomerular filtration rate/1.73 sq M.predicted 82 mL/min/1.73m*2 Normal >60 [facility] Comment on above: Result Comment: Calc ulations of estimated GFR are performed using the 2020 CKD-EPI Study Refit equation without the race variable for the IDMS-Traceable creatinine methods.https://jasn.asnjournals.org/content/early/ /ASN.1852495812 Performed By: #### 2 4323-8 ####BHANU Treviño (61557)[facility] ([facility])[address]197 [place] [address] Glucose [Mass/Vol] 103 mg/dL High 74-99 [facility] Comment on above: Performed By: #### 2 4323-8 ####BHANU Treviño (12712)[facility] ([facility])[address]0006 [place] [address] Potassium [Moles/Vol] 4.0 mmol/L Normal 3.5-5.3 [facility] Comment on above: Performed By: #### 2 4323-8 ####BHANU Treviño (19412)[facility] ([facility])37082 [place] [address] Protein [Mass/Vol] 6.1 g/dL Low 6.4-8.2 [facility] Comment on above: Performed By: #### 2 4323-8 ####BHANU Treviño ([id number])[facility] ([facility])10726 [place] [address] Sodium [Moles/Vol] 138 mmol/L Normal 136-145 [facility] Comment on above: Performed By: #### 2 4323-8 ####BHANU Treviño ([id number])[facility] ([facility])[address] [place] [address] 28370 Urea nitrogen [Mass/Vol] 7 mg/dL Normal 6-23 [facility] Comment on above: Performed By: #### 2 4323-8 ####BHANU Treviño ([id number])[facility] ([facility])[address] [place] [address] 07205 Magnesiumon 01-21-2025 Magnesium [Mass/Vol] 1.92 mg/dL Normal 1.60-2.40 [facility] Comment on above: Performed By: #### 1 9123-9 ####BHANU Treviño ([id number])[facility] ([facility])[address]35 [place] [address] CBC W Auto Differential pane l (Bld)on 01-20-2025 Basophils (Bld) [#/Vol] 0.06 x10*3/uL Normal 0.00-0.10 [facility] Comment on above: Performed By: #### 5 7021-8 ####BHANU Treviño (69160)[facility] ([facility])[address]666 [place] [address] Basophils/100 WBC (Bld) 0.6 % Normal 0.0-2.0 [facility] Comment on above: Performed By: #### 5 7021-8 ####BHANU Treviño ([id number])[facility] ([facility])88228 [place] [address] Eosinophils (Bld) [#/Vol] 0.44 x10*3/uL Normal 0.00-0.70 [facility] Comment on above: Performed By: #### 5 7021-8 ####BHANU Treviño (50609)[facility] ([facility])[address] [place] [address]951 Eosinophils/100 WBC (Bld) 4.2 % Normal 0.0-6.0 [facility] Comment on above: Performed By: #### 5 7021-8 ####BHANU Treviño (45454)[facility] ([facility])[address] [place] [address] 18624 Erythrocyte distribution width (RBC) [Ratio] 19.6 % High 11.5-14.5 [facility] Comment on above: Performed By: #### 5 7021-8 ####BHANU Treviño (66386)[facility] ([facility])[address] [place] [address]96[address] Hematocrit (Bld) [Volume fraction] 25.2 % Low 41.0-52.0 [facility] Comment on above: Performed By: #### 5 7021-8 ####BHANU Treviño (67586)[facility] ([facility])[address] [place] [address]11 Hemoglobin (Bld) [Mass/Vol] 8.1 g/dL Low 13.5-17.5 [facility] Comment on above: Performed By: #### 5 7021-8 ####BHANU Treviño ([id number])[facility] ([facility])[address] [place] [address]136 Immature granulocytes (Bld) [#/Vol] 0.05 x10*3/uL Normal 0.00-0.70 [facility] Comment on above: Performed By: #### 5 7021-8 ####BHANU Treviño (78410)[facility] ([facility])[address] [place] [address] 38743 Immature granulocytes/100 WBC (Bld) 0.5 % Normal 0.0-0.9 [facility] Comment on above: Result Comment: Christine ture Granulocyte Count (IG) includes promyelocytes, myelocytes and metamyelocytes but does not include bands. Percent differential counts (%) should be interpreted in the context of the absolute cell counts (cells/UL). Performed By: #### 5 7021-8 ####BHANU Treviño ([id number])[facility] ([facility])[address]11 [place] [address] Lymphocytes (Bld) [#/Vol] 1.24 x10*3/uL Normal 1.20-4.80 [facility] Comment on above: Performed By: #### 5 7021-8 ####BHANU Treviño ([id number])[facility] ([facility])[address]7634 [place] [address] Lymphocytes/100 WBC (Bld) 11.8 % Normal 13.0-44.0 [facility] Comment on above: Performed By: #### 5 7021-8 ####BHANU Treviño (87068)[facility] ([facility])[address]40 [place] [address] MCH (RBC) [Entitic mass] 24.7 pg Low 26.0-34.0 [facility] Comment on above: Performed By: #### 5 7021-8 ####BHANU Treviño (74795)[facility] ([facility])22284 [place] [address] MCHC (RBC) [Mass/Vol] 32.1 g/dL Normal 32.0-36.0 [facility] Comment on above: Performed By: #### 5 7021-8 ####BHANU Treviño (16065)[facility] ([facility])47164 [place] [address] MCV (RBC) [Entitic vol] 77 fL Low 80-100 [facility] Comment on above: Performed By: #### 5 7021-8 ####BHANU Treviño (68812)[facility] ([facility])82196 [place] [address] Monocytes (Bld) [#/Vol] 1.16 x10*3/uL High 0.10-1.00 [facility] Comment on above: Performed By: #### 5 7021-8 ####BHANU Treviño (94353)[facility] ([facility])[address]44 [place] [address] Monocytes/100 WBC (Bld) 11.0 % Normal 2.0-10.0 [facility] Comment on above: Performed By: #### 5 7021-8 ####BHANU Treviño ([id number])[facility] ([facility])17852 [place] [address] Neutrophils (Bld) [#/Vol] 7.58 x10*3/uL Normal 1.20-7.70 [facility] Comment on above: Result Comment: Perc ent differential counts (%) should be interpreted in the context of the absolute cell counts (cells/uL). Performed By: #### 5 7021-8 ####BHANU Treviño (14165)[facility] ([facility])[address]60 [place] [address] Neutrophils/100 WBC (Bld) 71.9 % Normal 40.0-80.0 [facility] Comment on above: Performed By: #### 5 7021-8 ####BHANU Treviño (10874)[facility] ([facility])[address]682 [place] [address] Nucleated RBC/100 WBC (Bld) [Ratio] 0.0 /100 WBCs Normal 0.0-0.0 [facility] Comment on above: Performed By: #### 5 7021-8 ####BHANU Treviño ([id number])[facility] ([facility])60595 [place] [address] Platelets (Bld) [#/Vol] 731 x10*3/uL High 150-450 [facility] Comment on above: Performed By: #### 5 7021-8 ####BHANU Treviño (71396)[facility] ([facility])[address]305 [place] [address] RBC (Bld) [#/Vol] 3.28 x10*6/uL Low 4.50-5.90 [facility] Comment on above: Performed By: #### 5 7021-8 ####BHANU Treviño (85711)[facility] ([facility])[address]200 [place] [address] WBC (Bld) [#/Vol] 10.5 x10*3/uL Normal 4.4-11.3 [facility] Comment on above: Performed By: #### 5 7021-8 ####BHANU Treviño (83911)[facility] ([facility])[address]70 [place] [address] Basophils (Bld) [#/Vol] 0.06 x10*3/uL Normal 0.00-0.10 [facility] Comment on above: Performed By: #### 5 7021-8 ####BHANU Treviño (76446)[facility] ([facility])[address]007 [place] [address] Basophils/100 WBC (Bld) 0.6 % Normal 0.0-2.0 [facility] Comment on above: Performed By: #### 5 7021-8 ####BHANU Treviño (94721)[facility] ([facility])[address]29 [place] [address] Eosinophils (Bld) [#/Vol] 0.50 x10*3/uL Normal 0.00-0.70 [facility] Comment on above: Performed By: #### 5 7021-8 ####BHANU Treviño ([id number])[facility] ([facility])[address]56 [place] [address] Eosinophils/100 WBC (Bld) 5.2 % Normal 0.0-6.0 [facility] Comment on above: Performed By: #### 5 7021-8 ####BHANU Treviño ([id number])[facility] ([facility])24655 [place] [address] Erythrocyte distribution width (RBC) [Ratio] 19.6 % High 11.5-14.5 [facility] Comment on above: Performed By: #### 5 7021-8 ####BHANU Treviño (24076)[facility] ([facility])47493 [place] [address] Hematocrit (Bld) [Volume fraction] 25.2 % Low 41.0-52.0 [facility] Comment on above: Performed By: #### 5 7021-8 ####BHANU Treviño ([id number])[facility] ([facility])[address] [place] [address] Hemoglobin (Bld) [Mass/Vol] 7.9 g/dL Low 13.5-17.5 [facility] Comment on above: Performed By: #### 5 7021-8 ####BHANU Treviño ([id number])[facility] ([facility])[address] [place] [address] Immature granulocytes (Bld) [#/Vol] 0.08 x10*3/uL Normal 0.00-0.70 [facility] Comment on above: Performed By: #### 5 7021-8 ####BHANU Treviño ([id number])[facility] ([facility])[address] [place] [address] Immature granulocytes/100 WBC (Bld) 0.8 % Normal 0.0-0.9 [facility] Comment on above: Result Comment: Christine ture Granulocyte Count (IG) includes promyelocytes, myelocytes and metamyelocytes but does not include bands. Percent differential counts (%) should be interpreted in the context of the absolute cell counts (cells/UL). Performed By: #### 5 7021-8 ####BHANU Treviño ([id number])[facility] ([facility])[address] [place] [address] Lymphocytes (Bld) [#/Vol] 1.26 x10*3/uL Normal 1.20-4.80 [facility] Comment on above: Performed By: #### 5 7021-8 ####BHANU Treviño ([id number])[facility] ([facility])[address] [place] [address] Lymphocytes/100 WBC (Bld) 13.1 % Normal 13.0-44.0 [facility] Comment on above: Performed By: #### 5 7021-8 ####BHANU Treviño ([id number])[facility] ([facility])[address] [place] [address] MCH (RBC) [Entitic mass] 24.7 pg Low 26.0-34.0 [facility] Comment on above: Performed By: #### 5 7021-8 ####BHANU Treviño ([id number])[facility] ([facility])[address] [place] [address] MCHC (RBC) [Mass/Vol] 31.3 g/dL Low 32.0-36.0 [facility] Comment on above: Performed By: #### 5 7021-8 ####BHANU Treviño ([id number])[facility] ([facility])[address] [place] [address] MCV (RBC) [Entitic vol] 79 fL Low 80-100 U [facility] Comment on above: Performed By: #### 5 7021-8 ####BHANU Treviño ([id number])[facility] ([facility])[address] [place] [address] Monocytes (Bld) [#/Vol] 1.08 x10*3/uL High 0.10-1.00 [facility] Comment on above: Performed By: #### 5 7021-8 ####BHANU Treviño ([id number])[facility] ([facility])[address] [place] [address] Monocytes/100 WBC (Bld) 11.3 % Normal 2.0-10.0 U [facility] Comment on above: Performed By: #### 5 7021-8 ####BHANU Treviño ([id number])[facility] ([facility])[address] [place] [address] Neutrophils (Bld) [#/Vol] 6.62 x10*3/uL Normal 1.20-7.70 [facility] Comment on above: Result Comment: Perc ent differential counts (%) should be interpreted in the context of the absolute cell counts (cells/uL). Performed By: #### 5 7021-8 ####BHANU Treviño ([id number])[facility] ([facility])[address] [place] [address] Neutrophils/100 WBC (Bld) 69.0 % Normal 40.0-80.0 [facility] Comment on above: Performed By: #### 5 7021-8 ####BHANU Treviño ([id number])[facility] ([facility])[address] [place] [address] Nucleated RBC/100 WBC (Bld) [Ratio] 0.0 /100 WBCs Normal 0.0-0.0 [facility] Comment on above: Performed By: #### 5 7021-8 ####BHANU GREGORY L ([id number])[facility] ([facility])[address] [place] [address] Platelets (Bld) [#/Vol] 689 x10*3/uL High 150-450 [facility] Comment on above: Performed By: #### 5 7021-8 ####BHANU Treviño ([id number])[facility] ([facility])[address] [place] [address] RBC (Bld) [#/Vol] 3.20 x10*6/uL Low 4.50-5.90 [facility] Comment on above: Performed By: #### 5 7021-8 ####BHANU GREGORY L ([id number])[facility] ([facility])[address] [place] [address] WBC (Bld) [#/Vol] 9.6 x10*3/uL Normal 4.4-11.3 [facility] Comment on above: Performed By: #### 5 7021-8 ####BHANU Treviño ([id number])[facility] ([facility])[address] [place] [address] Comprehensive metabolic 2000 panelon 01-20-2025 Albumin BCP dye [Mass/Vol] 2.2 g/dL Low 3.4-5.0 [facility] Comment on above: Performed By: #### 2 4323-8 ####BHANU Treviño ([id number])[facility] ([facility])[address] [place] [address] ALP [Catalytic activity/Vol] 62 U/L Normal 33-120 [facility] Comment on above: Performed By: #### 2 4323-8 ####BHANU Treviño ([id number])[facility] ([facility])[address] [place] [address] ALT With P-5'-P [Catalytic activity/Vol] 18 U/L Normal 10-52 [facility] Comment on above: Result Comment: Sydni ents treated with Sulfasalazine may generate falsely decreased results for ALT. Performed By: #### 2 4323-8 ####BHANU Treviño ([id number])[facility] ([facility])[address] [place] [address] Anion gap [Moles/Vol] 11 mmol/L Normal 10-20 [facility] Comment on above: Performed By: #### 2 4323-8 ####BHANU Treviño ([id number])[facility] ([facility])[address] [place] [address] AST With P-5'-P [Catalytic activity/Vol] 30 U/L Normal 9-39 [facility] Comment on above: Performed By: #### 2 4323-8 ####BHANU Treviño ([id number])[facility] ([facility])[address] [place] [address] Bilirubin [Mass/Vol] 0.3 mg/dL Normal 0.0-1.2 [facility] Comment on above: Performed By: #### 2 4323-8 ####BHANU Treviño ([id number])[facility] ([facility])[address] [place] [address] Calcium [Mass/Vol] 7.9 mg/dL Low 8.6-10.6 [facility] Comment on above: Performed By: #### 2 4323-8 ####BHANU GREGORY L ([id number])[facility] ([facility])[address] [place] [address] Chloride [Moles/Vol] 106 mmol/L Normal 98-107 [facility] Comment on above: Performed By: #### 2 4323-8 ####BHANU GREGORY L ([id number])[facility] ([facility])[address] [place] [address] CO2 [Moles/Vol] 26 mmol/L Normal 21-32 [facility] Comment on above: Performed By: #### 2 4323-8 ####BHANU GREGORY L ([id number])[facility] ([facility])[address] [place] [address] Creatinine [Mass/Vol] 1.08 mg/dL Normal 0.50-1.30 [facility] Comment on above: Performed By: #### 2 4323-8 ####BHANU GREGORY L ([id number])[facility] ([facility])[address] [place] [address] Glomerular filtration rate/1.73 sq M.predicted 83 mL/min/1.73m*2 Normal >60 [facility] Comment on above: Result Comment: Calc ulations of estimated GFR are performed using the 2020 CKD-EPI Study Refit equation without the race variable for the IDMS-Traceable creatinine methods.https://jasn.asnjournals.org/content/ /ASN.6254964457 Performed By: #### 2 4323-8 ####BHANU GREGORY L ([id number])[facility] ([facility])[address] [place] [address] Glucose [Mass/Vol] 100 mg/dL High 74-99 [facility] Comment on above: Performed By: #### 2 4323-8 ####BHANU Treviño ([id number])[facility] ([facility])[address] [place] [address] Potassium [Moles/Vol] 3.8 mmol/L Normal 3.5-5.3 [facility] Comment on above: Performed By: #### 2 4323-8 ####BHANU Treviño ([id number])[facility] ([facility])[address] [place] [address] Protein [Mass/Vol] 5.5 g/dL Low 6.4-8.2 [facility] Comment on above: Performed By: #### 2 4323-8 ####BHANU Treviño ([id number])[facility] ([facility])[address] [place] [address] Sodium [Moles/Vol] 139 mmol/L Normal 136-145 [facility] Comment on above: Performed By: #### 2 4323-8 ####BHANU Treviño ([id number])[facility] ([facility])[address] [place] [address] Urea nitrogen [Mass/Vol] 7 mg/dL Normal 6-23 [facility] Comment on above: Performed By: #### 2 4323-8 ####BHANU Treviño ([id number])[facility] ([facility])[address] [place] [address] Magnesiumon 01-20-2025 Magnesium [Mass/Vol] 1.94 mg/dL Normal 1.60-2.40 [facility] Comment on above: Performed By: #### 1 9123-9 ####BHANU Treviño ([id number])[facility] ([facility])[address] [place] [address] RBC shape Nom (Bld)on 2024 Hypochromia Ql (Bld) Mild Normal [facility] Comment on above: Performed By: #### 1 8225-3 ####BHANU Treviño ([id number])[facility] ([facility])[address] [place] [address] RBC morphology finding Nom (Bld) See Below Normal [facility] Comment on above: Performed By: #### 1 8225-3 ####BHANU Treviño ([id number])[facility] ([facility])[address] [place] [address] CBC W Auto Differential pane l (Bld)on 01-19-2025 Basophils (Bld) [#/Vol] 0.05 x10*3/uL Normal 0.00-0.10 [facility] Comment on above: Performed By: #### 5 7021-8 ####BHANU Treviño ([id number])[facility] ([facility])[address] [place] [address] Basophils/100 WBC (Bld) 0.5 % Normal 0.0-2.0 U [facility] Comment on above: Performed By: #### 5 7021-8 ####BHANU Treviño ([id number])[facility] ([facility])[address] [place] [address] No Panel Informationon 01-13 Actual Fractions Delivered 5 [facility] Actual Session Delivered Dose 400 cGray [facility] Actual Total Dose 2000 cGray [facility] Course Number 1 [facility] Elapsed Days 6 [facility] Last Date 01/13/2025 [facility] Prescribed Fractional Dose 400 cGray [facility] Prescribed Number of Fractions 5 [facility] Prescribed Technique 3D [facility] Prescribed Total Dose 2000 cGray [facility] Prescription Pattern Comment 1 cm bolus [facility] Start Date 01/07/2025 [facility] Treatment Site L [facility] Rad Onc Msq Treatment Summar yon 01-10-2025 Actual Fractions Delivered 4 [facility] Actual Session Delivered Dose 400 cGray [facility] Actual Total Dose 1600 cGray [facility] Course Number 1 [facility] Elapsed Days 3 [facility] Last Date 01/10/2025 [facility] Prescribed Fractional Dose 400 cGray [facility] Prescribed Number of Fractions 5 [facility] Prescribed Technique 3D [facility] Prescribed Total Dose 2000 cGray [facility] Prescription Pattern Comment 1 cm bolus [facility] Start Date 01/07/2025 [facility] Treatment Site L [facility] Rad Onc Msq Treatment Summar yon 01-09-2025 Actual Fractions Delivered 3 [facility] Actual Session Delivered Dose 400 cGray [facility] Actual Total Dose 1200 cGray [facility] Course Number 1 [facility] Elapsed Days 2 [facility] Last Date 01/09/2025 [facility] Prescribed Fractional Dose 400 cGray [facility] Prescribed Number of Fractions 5 [facility] Prescribed Technique 3D [facility] Prescribed Total Dose 2000 cGray [facility] Prescription Pattern Comment 1 cm bolus [facility] Start Date 01/07/2025 [facility] Treatment Site L [facility] Rad Onc Msq Treatment Summar 01-08-2025 Actual Fractions Delivered 2 [facility] Actual Session Delivered Dose 400 cGray [facility] Actual Total Dose 800 cGray [facility] Course Number 1 [facility] Elapsed Days 1 [facility] Last Date 01/08/2025 [facility] Prescribed Fractional Dose 400 cGray [facility] Prescribed Number of Fractions 5 [facility] Prescribed Technique 3D [facility] Prescribed Total Dose 2000 cGray [facility] Prescription Pattern Comment 1 cm bolus [facility] Start Date 01/07/2025 [facility] Treatment Site L [facility] No Panel Informationon 01-02 These images are [...] maintained or improved Outcome: Adequate for Discharge [facility] 30 Problem: Knowledge Deficit Goal: Patient/family/careg iver [...] by Diana Wise RN Outcome: Progressing Normal [facility] BASIC METABOLIC PANELon 04-0 Anion gap [Moles/Vol] 7 mmol/L Normal 3-13 [facility] Comment on above: Performed By: #### L AB15 ####[employer] Manager: JAZLYN JIMENEZ ([phone])[address] Calcium [Mass/Vol] 10.3 mg/dL High 8.4-10.2 [facility] Comment on above: Performed By: #### L AB15 ####[employer] Manager: JAZLYN JIMENEZ ([phone])[facility])[address] [place] [address] Chloride [Moles/Vol] 108 mmol/L High 98-107 [facility] Comment on above: Performed By: #### L AB15 ####[employer]ental [employer] Manager: JAZLYN JIMENEZ ([phone])[facility])[address] [place] [address] CO2 [Moles/Vol] 24 mmol/L Normal 22-29 [facility] Comment on above: Performed By: #### L AB15 ####[employer] Manager: JAZLYN JIMENEZ ([phone])[facility])[address] [place] [address] Creatinine [Mass/Vol] 1.04 mg/dL Normal 0.72-1.25 [facility] Comment on above: Performed By: #### L AB15 ####[employer] Manager: JAZLYN JIMENEZ ([phone])[facility])[address] [place] [address] GLOMERULAR FILTRATION RATE ML/MIN/1.73 SQ M.PREDICTED 86.9 mL/min/1.73m*2 Normal >60.0 [facility] Comment on above: Result Comment: Calc ulation based on the Chronic Kidney Disease Epidemiology Collaboration (CKD-EPI) equation refit without adjustment for race Performed By: #### L AB15 ####[employer] Manager: JAZLYN JIMENEZ ([phone])[facility])[address] [place] [address] Glucose [Mass/Vol] 97 mg/dL Normal 74-100 [facility] Comment on above: Performed By: #### L AB15 ####[employer] Manager: JAZLYN JIMENEZ ([phone])[facility])[address] [place] [address] Potassium [Moles/Vol] 3.7 mmol/L Normal 3.5-5.1 [facility] Comment on above: Result Comment: [facility] potassium values may be up to 0.5 mmol/L lower than serum values. Performed By: #### L AB15 ####[employer] Manager: JAZLYN JIMENEZ ([phone])[facility])[address] [place] [address] Sodium [Moles/Vol] 139 mmol/L Normal 136-145 [facility] Comment on above: Performed By: #### L AB15 ####[employer] Manager: JAZLYN JIMENEZ ([phone])[facility])[address] [place] [address] Urea nitrogen [Mass/Vol] 7 mg/dL Low 9-23 [facility] Comment on above: Performed By: #### L AB15 ####[employer] Manager: JAZLYN JIMENEZ ([phone])[facility])[address] [place] [address] Basic metabolic 1998 panelOr dered By: Eboni Camacho on 12-24-2024 Anion gap [Moles/Vol] 7 mmol/L 3 - 13 mmol/L [facility] Calcium [Mass/Vol] 10.3 mg/dL High 8.4 - 10. 2 mg/dL [facility] Chloride [Moles/Vol] 108 mmol/L High 98 - 10 7 mmol/L [facility] CO2 [Moles/Vol] 24 mmol/L 22 - 29 mmol/L [facility] Creatinine [Mass/Vol] 1.04 mg/dL 0.72 - 1.25 mg/dL [facility] GFR/1.73 sq M.predicted (S/P/Bld) [Vol rate/Area] 86.9 mL/min - PINF [facility] Comment on above: Calculation based on the Chronic Kidney Disease Epidemiology Collaboration (CKD-EPI) equation refit without adjustment for race Glucose [Mass/Vol] 97 mg/dL 74 - 100 mg/dL [facility] Interpretation and review of laboratory results Abnormal [facility] Potassium [Moles/Vol] 3.7 mmol/L 3.5 - 5.1 mmol/L [facility] Comment on above: Plasma potassium jeri ues may be up to 0.5 mmol/L lower than serum values. Sodium [Moles/Vol] 139 mmol/L 136 - 145 mmol/L [facility] Urea nitrogen [Mass/Vol] 7 mg/dL Low 9 - 23 mg/d L [facility] CBC W Auto Differential pane l (Bld)on 12-24-2024 Basophils (Bld) [#/Vol] 0.1 10*3/uL 0.0 - 0.2 10*3/uL [facility] Basophils/100 WBC (Bld) 0.5 % 0.0 - 2.0 % [facility] Eosinophils (Bld) [#/Vol] 0.8 10*3/uL High 0.0 - 0.5 10*3/uL [facility] Eosinophils/100 WBC (Bld) 5.7 % 0.0 - 6.0 % [facility] Erythrocyte distribution width (RBC) [Ratio] 17.5 % High 11.5 - 15.0 % [facility] Hematocrit (Bld) [Volume fraction] 23 % Low 40.0 - 52.0 % [facility] Hemoglobin (Bld) [Mass/Vol] 7.1 g/dL Low 13.0 - 18.0 g/dL [facility] Immature granulocytes (Bld) [#/Vol] 0.1 10*3/uL High NINF - 0.1 10*3/uL [facility] Immature granulocytes/100 WBC (Bld) 0.4 % 0.0 - 2.0 % [facility] Interpretation and review of laboratory results Abnormal [facility] Lymphocytes (Bld) [#/Vol] 1.5 10*3/uL 1.0 - 4.3 10*3/uL [facility] Lymphocytes/100 WBC (Bld) 9.9 % Low 15.0 - 45.0 % [facility] MCH (RBC) [Entitic mass] 24.6 pg Low 26. 0 - 34.0 pg [facility] MCHC (RBC) [Mass/Vol] 30.9 % 30.5 - 36.0 % [facility] MCV (RBC) [Entitic vol] 79.6 fL 77.0 - 99.0 fL [facility] Monocytes (Bld) [#/Vol] 1.4 10*3/uL High 0.0 - 0.9 10*3/uL [facility] Monocytes/100 WBC (Bld) 9.4 % 5.0 - 13.0 % [facility] Neutrophils (Bld) [#/Vol] 11 10*3/uL High 1.8 - 7.5 10*3/uL [facility] Neutrophils/100 WBC (Bld) 74.1 % 38.0 - 82.0 % [facility] Nucleated RBC/100 WBC (Bld) [Ratio] 0 % [facility] Platelet mean volume (Bld) [Entitic vol] 8.8 fL Low 9.0 - 12.7 fL [facility] Platelets (Bld) [#/Vol] 577 10*3/uL High 140 - 440 10*3/uL [facility] RBC (Bld) [#/Vol] 2.89 10*6/uL Low 4.40 - 5.9 0 10*6/uL [facility] WBC (Bld) [#/Vol] 14.8 10*3/uL High 3.6 - 10.7 10*3/uL [facility] CBC WITH AUTO DIFFERENTIALon 12-24-2024 Basophils (Bld) [#/Vol] 0.1 10*3/uL Normal 0.0-0.2 [facility] Comment on above: Performed By: #### L [id number] ####[employer] Manager: JAZLYN JIMENEZ ([phone])[facility])[address] [place] [address] Basophils/100 WBC (Bld) 0.5 % Normal 0.0-2.0 [facility] Comment on above: Performed By: #### L [id number] ####[employer] Manager: JAZLYN JIMENEZ ([phone])[facility])[address] [place] [address] [place] Eosinophils (Bld) [#/Vol] 0.8 10*3/uL High 0.0-0.5 [facility] Comment on above: Performed By: #### L [id number] ####[employer] Manager: JAZLYN JIMENEZ ([phone])[facility])[address] [place] [address] [place] Eosinophils/100 WBC (Bld) 5.7 % Normal 0.0-6.0 [facility] Comment on above: Performed By: #### L [id number] ####[employer] Manager: JAZLYN JIMENEZ ([phone])[facility])[address] [place] [address] [place] Erythrocyte distribution width (RBC) [Ratio] 17.5 % High 11.5-15.0 [facility] Comment on above: Performed By: #### L [id number] ####[employer] Manager: JAZLYN JIMENEZ ([phone])[facility])[address] [place] [address] Hematocrit (Bld) [Volume fraction] 23.0 % Low 40.0-52.0 [facility] Comment on above: Performed By: #### L [id number] ####[employer] Manager: JAZLYN JIMENEZ ([phone])[facility])[address] [place] [address] Hemoglobin (Bld) [Mass/Vol] 7.1 g/dL Low 13.0-18.0 [facility] Comment on above: Performed By: #### L [id number] ####[employer] Manager: JAZLYN JIMENEZ ([phone])[facility])[address] [place] [address] IMMATURE GRANS % 0.4 % Normal 0.0-2.0 [facility] Comment on above: Performed By: #### L [id number] ####[employer] Manager: JAZLYN JIMENEZ ([phone])[facility])[address] [place] [address] IMMATURE GRANS ABSOLUTE 0.1 10*3/uL High <0.1 [facility] Comment on above: Performed By: #### L [id number] ####[employer] Rental [employer] Manager: JAZLYN JIMENEZ ([phone])[facility])[address] [place] [address] Lymphocytes (Bld) [#/Vol] 1.5 10*3/uL Normal 1.0-4.3 [facility] Comment on above: Performed By: #### L [id number] ####[employer] Manager: JAZLYN JIMENEZ ([phone])[facility])[address] [place] [address] Lymphocytes/100 WBC (Bld) 9.9 % Low 15.0-45.0 [facility] Comment on above: Performed By: #### L [id number] ####[employer] Manager: JAZLYN JIMENEZ ([phone])[facility])[address] [place] [address] MCH (RBC) [Entitic mass] 24.6 pg Low 26.0-34.0 [facility] Comment on above: Performed By: #### L [id number] ####[employer] Manager: JAZLYN JIMENZE ([phone])[facility])[address] [place] [address] MCHC 30.9 % Normal 30.5-36.0 [facility] Comment on above: Performed By: #### L [id number] ####[employer] Manager: JAZLYN JIMENEZ ([phone])[facility])[address] [place] [address] MCV (RBC) [Entitic vol] 79.6 fL Normal 77.0-99.0 [facility] Comment on above: Performed By: #### L [id number] ####[employer] Manager: JAZLYN JIMENEZ ([phone])[facility])[address] [place] [address] Monocytes (Bld) [#/Vol] 1.4 10*3/uL High 0.0-0.9 [facility] Comment on above: Performed By: #### L [id number] ####[employer] Manager: JAZLYN JIMENEZ ([phone])[facility])[address] [place] [address] Monocytes/100 WBC (Bld) 9.4 % Normal 5.0-13.0 [facility] Comment on above: Performed By: #### L [id number] ####[employer] Manager: JAZLYN JIMENEZ ([phone])[facility])[address] [place] [address] NEUTROPHILS ABSOLUTE 11.0 10*3/uL High 1.8-7.5 [facility] Comment on above: Performed By: #### L [id number] ####[employer] Manager: JAZLYN JIMENEZ ([phone])[address] Neutrophils/100 WBC (Bld) 74.1 % Normal 38.0-82.0 [facility] Comment on above: Performed By: #### L [id number] ####[employer]ental [employer] Manager: JAZLYN JIMENEZ ([phone])[facility])[address] [place] [address] NRBC 0.0 /100 WBCs Normal 0.0-2.0 [facility] Comment on above: Performed By: #### L [id number] ####[employer] Manager: JAZLYN JIMENEZ ([phone])[facility])[address] [place] [address] Platelet mean volume (Bld) [Entitic vol] 8.8 fL Low 9.0-12.7 [facility] Comment on above: Performed By: #### L [id number] ####[employer] Manager: JAZLYN JIMENEZ ([phone])[facility])[address] [place] [address] Platelets (Bld) [#/Vol] 577 10*3/uL High 140-440 [facility] Comment on above: Performed By: #### L [id number] ####[employer]ental [employer] Manager: JAZLYN JIMENEZ ([phone])[facility])[address] [place] [address] RBC (Bld) [#/Vol] 2.89 10*6/uL Low 4.40-5.90 [facility] Comment on above: Performed By: #### L [id number] ####[employer] Manager: JAZLYN JIMENEZ ([phone])[facility])[address] [place] [address] WBC (Bld) [#/Vol] 14.8 10*3/uL High 3.6-10.7 [facility] Comment on above: Performed By: #### L [id number] ####[employer] Manager: JAZLYN JIMENEZ ([phone])[facility])[address] [place] [address] Consulton 12-24-2024 Consult [facility] CONSULT Note Kevan La AGE: [...] BC taken Received zosyn, vancomycin and fluids. [facility] accepted him but waiting on bed until later this afternoon. Pt states he was dropped off here from [facility] as it was the closest hospital. All [...] respiratory distress, no cyanosis Left hip/post thigh: [id number]. Wound beds with pink tissue and slough. [...] to follow Recommend to follow up at [facility] after hospital discharge. [...] own independent evaluation of this patient. [facility] Nursing Noteon 12-24-2024 Nursing Note See new oxy 5 mg one time dose order [facility] Nursing Note Attending secure chatted due to patient asking for PRN pain meds with soft BP's. Awaiting answer [facility] Nursing Note Called and this nurse gave report to Lori NEWTON for patient. P/U time still 1230. Patient updated. [facility] Nursing Note Call received from . Patient has bed waiting at [facility] room [facility]. Nurse to nurse report number [phone]. Social work to arrange transportation in AM. Patient notified [facility] 30on 12-23-2024 30 Problem: Knowledge Deficit Goal: [...] and maintained or improved Outcome: Progressing [facility] Consulton 12-23-2024 Consult Attestation signed by Noah Stewart DO at 12/23/2024 7:11 PM I have personally performed a [id number] diagnostic evaluation on this patient on date of service 12/23/24. History, labs, imaging studies, and electronic medical record have been reviewed by me. This note documented by the []Critical Care Fellow [x]beam house inspector []BRITTNEY reflects my history, exam, and medical [...] hip and hidradenitis suppurativa who presented to [facility] 12/22 from [facility] for increased drainage and malodor of L hip wound. He is awaiting transfer to [facility]. Of note, patient recently hospitalized at 12/07 - 12/17 and was discharged to [facility] on Augmentin through 01/12. He had a [...] Resource Strain: Medium Risk (12/07/2024) Received from [facility] Overall Financial Resource Strain (CARDIA) Difficulty of Paying Living Expenses: Somewhat hard Food Insecurity: No Food Insecurity (12/07/2024) Received from [facility] Hunger Vital Sign Worried About Running Out of Food in the Last Year: Never true Ran Out of Food in the Last Year: Never true Recent Concern: Food Insecurity - Food Insecurity Present (10/11/2024) Received from [facility] Vital Sign Worried About Running Out of Food in the Last Year: Sometimes true Ran Out of Food in the Last Year: Sometimes true Transportation Needs: No Transportation Needs (12/07/2024) Received from [facility] PRAPARE - Transportation Lack of Transportation (Medical): No Lack of (more content not included)... [facility] ED Nursing Noteon 12-23-2024 ED Nursing Note RN informed patient admitting team of patient b/p . Pt on the monitor. Pt declined feeling dizzy or nauseous. Pt want pants, RN is looking for pants [facility] ED Nursing Note Pt moved into inpatient bed. Pt on the monitor. [facility] ED Nursing Note Report given to Sunni NEWTON [facility] ED Nursing Note Received report from Parish NEWTON [facility] ED Nursing Note Levo drip turned off. BP 102/64. [facility] Progress Noteon 12-23-2024 Progress Note Pharmacy Managed [...] creatinine, and vancomycin levels interfaced automatically to [employer] and data has been analyzed and interpreted. [...] Clinical Pharmacist Available via Secure Chat [facility] BLOOD CULTUREon 12-22-2024 Bacteria identified Cx Nom (Bld) BLOOD CULTURE Reference No growth at 5 days ORDER COMMENTS: Blood Collection Site: Right Arm [ S = SUSCEPTIBLE R = RESISTANT I = INTERMEDIATE S-DD = Susceptible-dose dependent NS = Non-susceptible NO = No Interpretation ] [facility] Comment on above: Performed By: #### L [id number], [id number] #### Car Rental Agency Manager: JAZLYN JIMENEZ ([phone]) [facility] ([address] Bacteria identified Cx Nom (Bld) BLOOD CULTURE Reference No growth at 5 days ORDER COMMENTS: Blood Collection Site: Left Arm [ S = SUSCEPTIBLE R = RESISTANT I = INTERMEDIATE S-DD = Susceptible-dose dependent NS = Non-susceptible NO = No Interpretation ] [facility] Comment on above: Performed By: #### L [id number], [id number] #### Car Rental Agency Manager: JAZLYN JIMENEZ ([phone]) [facility] [address] [place] [address] CBC W Auto Differential pane l (Bld)Ordered By: Flores Rausch on 12-22-2024 Erythrocyte distribution width (RBC) [Ratio] 17.3 % High 11.5 - 15.0 % [facility] Hematocrit (Bld) [Volume fraction] 26.8 % Low 40.0 - 52.0 % [facility] Hemoglobin (Bld) [Mass/Vol] 8.4 g/dL Low 13.0 - 18.0 g/dL [facility] Interpretation and review of laboratory results Abnormal [facility] MCH (RBC) [Entitic mass] 25.2 pg Low 26. 0 - 34.0 pg [facility] MCHC (RBC) [Mass/Vol] 31.3 % 30.5 - 36.0 % [facility] MCV (RBC) [Entitic vol] 80.5 fL 77.0 - 99.0 fL [facility] Platelet mean volume (Bld) [Entitic vol] 8.9 fL Low 9.0 - 12.7 fL [facility] Platelets (Bld) [#/Vol] 698 10*3/uL High 140 - 440 10*3/uL [facility] RBC (Bld) [#/Vol] 3.33 10*6/uL Low 4.40 - 5.9 0 10*6/uL [facility] WBC (Bld) [#/Vol] 19.4 10*3/uL High 3.6 - 10.7 10*3/uL [facility] CBC WITH AUTO DIFFERENTIALon 12-22-2024 Erythrocyte distribution width (RBC) [Ratio] 17.3 % High 11.5-15.0 [facility] Comment on above: Performed By: #### L [id number], [id number] #### Car Rental Agency Manager: JAZLYN JIMENEZ ([phone]) [facility] ([facility] [address] [place] [address] Hematocrit (Bld) [Volume fraction] 26.8 % Low 40.0-52.0 [facility] Comment on above: Performed By: #### L [id number], [id number] #### Car Rental Agency Manager: JAZLYN JIMENEZ ([phone]) [facility] ([facility]) [address] [place] [address] Hemoglobin (Bld) [Mass/Vol] 8.4 g/dL Low 13.0-18.0 [facility] Comment on above: Performed By: #### L [id number], [id number] #### Car Rental Agency Manager: JAZLYN JIMENEZ ([phone]) [facility] ([facility]) [address] [place] [address] MCH (RBC) [Entitic mass] 25.2 pg Low 26.0-34.0 [facility] Comment on above: Performed By: #### Kamila [id number], [id number] #### Car Rental Agency Manager: JAZLYN JIMENEZ ([phone]) [facility]) [address] [place] [address] MCHC 31.3 % Normal 30.5-36.0 [facility] Comment on above: Performed By: #### Kamila [id number], [id number] #### Car Rental Agency Manager: JAZLYN JIMENEZ ([id number]) [facility] ([facility]) [address] [place] [address] MCV (RBC) [Entitic vol] 80.5 fL Normal 77.0-99.0 [facility] Comment on above: Performed By: #### L [id number], [id number] #### Car Rental Agency Manager: JAZLYN JIMENEZ ([phone]) [facility] ([facility]) [address] [place] [address] Platelet mean volume (Bld) [Entitic vol] 8.9 fL Low 9.0-12.7 [facility] Comment on above: Performed By: #### L [id number], [id number] #### Car Rental Agency Manager: JAZLYN JIMENEZ ([phone]) [facility]) [address] [place] [address] Platelets (Bld) [#/Vol] 698 10*3/uL High 140-440 [facility] Comment on above: Performed By: #### L [id number], [id number] #### Car Rental Agency Manager: JAZLYN JIMENEZ ([id number]) [facility] ([facility]) [address] [place] [address] RBC (Bld) [#/Vol] 3.33 10*6/uL Low 4.40-5.90 [facility] Comment on above: Performed By: #### L [id number], [id number] #### Car Rental Agency Manager: JAZLYN JIMENEZ ([phone]) [facility] ([facility]) [address] [place] [address] WBC (Bld) [#/Vol] 19.4 10*3/uL High 3.6-10.7 [facility] Comment on above: Performed By: #### L [id number], [id number] #### Car Rental Agency Manager: JAZLYN JIMENEZ ([phone]) [facility]) [address] [place] [address] COMPLETE URINALYSISon 2024 BILIRUBIN, TOTAL PRESENCE IN URINE Negative Normal Negative [facility] Comment on above: Performed By: #### L [id number] ####Car Rental Agency Manager: JAZLYN JIMENEZ ([phone])[facility])[address] [place] [address] Clarity (U) Clear Normal Clear [facility] Comment on above: Performed By: #### L [id number] ####Car Rental Agency Manager: JAZLYN JIMENEZ ([phone])[facility])[address] [place] [address] Color (U) Light Yellow Normal Lt. Yellow [facility] Comment on above: Performed By: #### L [id number] ####Car Rental Agency Manager: JAZLYN JIMENEZ ([phone])[facility])[address] [place] [address] GLUCOSE (MG/DL) IN URINE Normal Normal Normal (<70 ) [facility] Comment on above: Performed By: #### L [id number] ####Car Rental Agency Manager: JAZLYN [id number])[facility])[address] [place] [address] HEMOGLOBIN PRESENCE IN URINE Negative Normal Negative [facility] Comment on above: Performed By: #### L [id number] ####Car Rental Agency Manager: JAZLYN JIMENEZ ([phone])[facility] ([facility])[address] [place] [address] Ketones Ql (U) Negative Normal Negative [facility] Comment on above: Performed By: #### L [id number] ####Car Rental Agency Manager: JAZLYN JIMENEZ ([phone])[facility] ([facility])[address] [place] [address] LEUKOCYTE ESTERASE PRESENCE IN URINE BY TEST STRIP Negative Normal Negative [facility] Comment on above: Performed By: #### L [id number] ####Car Rental Agency Manager: JAZLYN JIMENEZ ([phone])[facility] ([facility])[address] [place] [address] NITRITE PRESENCE IN URINE Negative Normal Negative [facility] Comment on above: Performed By: #### L [id number] ####Car Rental Agency Manager: JAZLYN JIMENEZ ([phone])[facility] ([facility])[address] [place] [address] pH (U) 6.0 [pH] Normal 5.0-8.0 [facility] Comment on above: Performed By: #### L [id number] ####Car Rental Agency Manager: JAZLYN JIMENEZ ([phone])[facility] ([facility])[address] [place] [address] Protein (U) [Mass/Vol] Negative Normal Negative [facility] Comment on above: Performed By: #### L [id number] ####Car Rental Agency Manager: JAZLYN JIMENEZ ([phone])[facility] ([facility])[address] [place] [address] Specific gravity (U) [Rel density] 1.009 Normal 1.005-1.030 [facility] Comment on above: Performed By: #### L [id number] ####Car Rental Agency Manager: JAZLYN JIMENEZ ([phone])[facility] ([facility])[address] [place] [address] UROBILINOGEN (MG/DL) IN URINE Normal Normal Normal (0-1) [facility] Comment on above: Performed By: #### L [id number] ####Car Rental Agency Manager: JAZLYN JIMENEZ ([phone])[facility] ([facility])[address] [place] [address] COMPREHENSIVE METABOLIC PANE Yuriy 12-22-2024 Albumin [Mass/Vol] 2.6 g/dL Low 3.5-5.0 [facility] Comment on above: Performed By: #### L [id number], [id number] #### Car Rental Agency Manager: JAZLYN JIMENEZ ([id number]) [facility] ([facility]) [address] [place] [address] ALP [Catalytic activity/Vol] 65 U/L Normal 40-150 [facility] Comment on above: Performed By: #### L [id number], [id number] #### Car Rental Agency Manager: JAZLYN JIMENEZ ([phone]) [facility] ([facility]) [address] [place] [address] ALT [Catalytic activity/Vol] 6 U/L Normal <40 [facility] Comment on above: Performed By: #### L [id number], [id number] #### Car Rental Agency Manager: JAZLYN JIMENEZ ([id number]) [facility] ([facility]) [address] [place] [address] Anion gap [Moles/Vol] 10 mmol/L Normal 3-13 [facility] Comment on above: Performed By: #### L [id number], [id number] #### Car Rental Agency Manager: JAZLYN JIMENEZ ([phone]) [facility] ([facility] [address] [place] [address] [place] AST [Catalytic activity/Vol] 16 U/L Normal <34 [facility] Comment on above: Performed By: #### L [id number], [id number] #### Car Rental Agency Manager: JAZLYN JIMENEZ ([phone]) [facility] ([facility]) [address] [place] [address] [place] Bilirubin [Mass/Vol] 0.4 mg/dL Normal <1.2 [facility] Comment on above: Performed By: #### L [id number], [id number] #### Car Rental Agency Manager: JAZLYN JIMENEZ ([phone]) [facility]) [address] [place] [address] Calcium [Mass/Vol] 11.2 mg/dL High 8.4-10.2 [facility] Comment on above: Performed By: #### L [id number], [id number] #### Car Rental Agency Manager: JAZLYN JIMENEZ ([id number]) [facility] [address] [place] [address] Chloride [Moles/Vol] 98 mmol/L Normal 98-107 [facility] Comment on above: Performed By: #### L [id number], [id number] #### Car Rental Agency Manager: JAZLYN JIMENEZ ([id number]) [facility] ([facility]) [address] [place] [address] CO2 [Moles/Vol] 24 mmol/L Normal 22-29 [facility] Comment on above: Performed By: #### Kamila [id number], [id number] #### Car Rental Agency Manager: JAZLYN JIMENEZ ([phone]) [facility] ([facility]) [address] [place] [address] Creatinine [Mass/Vol] 1.16 mg/dL Normal 0.72-1.25 [facility] Comment on above: Performed By: #### L [id number], [id number] #### Car Rental Agency Manager: JAZLYN JIMENEZ ([phone]) [facility]) [address] [place] [address] [place] GLOMERULAR FILTRATION RATE ML/MIN/1.73 SQ M.PREDICTED 76.3 mL/min/1.73m*2 Normal >60.0 [facility] Comment on above: Result Comment: Calc ulation based on the Chronic Kidney Disease Epidemiology Collaboration (CKD-EPI) equation refit without adjustment for race Performed By: #### L [id number], [id number] #### Car Rental Agency Manager: JAZLYN JIMENEZ ([phone]) [facility] ([facility]) [address] [place] [address] Glucose [Mass/Vol] 108 mg/dL High 74-100 [facility] Comment on above: Performed By: #### L [id number], [id number] #### Car Rental Agency Manager: JAZLYN JIMENEZ ([id number]) [facility]) [address] [place] [address] Potassium [Moles/Vol] 4.0 mmol/L Normal 3.5-5.1 [facility] Comment on above: Result Comment: [facility] potassium values may be up to 0.5 mmol/L lower than serum values. Performed By: #### L [id number], [id number] #### Car Rental Agency Manager: JAZLYN JIMENEZ ([id number]) [facility] ([facility]) [address] [place] [address] Protein [Mass/Vol] 7.2 g/dL Normal 6.4-8.3 [facility] Comment on above: Performed By: #### L [id number], [id number] #### Car Rental Agency Manager: JAZLYN JIMENEZ ([id number]) [facility] ([facility]) [address] [place] [address] Sodium [Moles/Vol] 132 mmol/L Low 136-145 [facility] Comment on above: Performed By: #### L [id number], [id number] #### Car Rental Agency Manager: JAZLYN JIMENEZ ([id number]) [facility]) [address] [place] [address] Urea nitrogen [Mass/Vol] 11 mg/dL Normal 9-23 [facility] Comment on above: Performed By: #### L [id number], [id number] #### Car Rental Agency Manager: JAZLYN JIMENEZ ([phone]) [facility]) [address] [place] [address] CULTURE ANAEROBICon 12-23-19 25 CULTURE ANAEROBIC ANAEROBIC CULTURE (A) Reference BACTEROIDES FRAGILIS GROUP Moderate Bacteroides fragilis group (A) FUSOBACTERIUM GONIDIAFORMANS Fusobacterium gonidiaformans (A) This is an edited result. Previous organism was Anaerobic Gram-negative cocci on 12/24/2024 at 1358 EDT. [ S = SUSCEPTIBLE R = RESISTANT I = INTERMEDIATE S-DD = Susceptible-dose dependent NS = Non-susceptible NO = No Interpretation ] Normal [facility] Comment on above: Performed By: #### L [id number], [id number] #### Car Rental Agency Manager: JAZLYN JIMENEZ ([phone]) [facility] [address] [place] [address] CULTURE, AEROBIC BACTERIA WI TH GRAM STAINon [...] Non-susceptible NO = No Interpretation ] Normal [facility] Comment on above: Performed By: #### L [id number], [id number] #### Car Rental Agency Manager: JAZLYN JIMENEZ ([phone]) [facility] [address] [place] [address] Comprehensive metabolic 1998 panelon 12-22-2024 Albumin [Mass/Vol] 2.6 g/dL Low 3.5 - 5.0 g/dL [facility] ALP [Catalytic activity/Vol] 65 U/L 40 - 150 U/L [facility] ALT [Catalytic activity/Vol] 6 U/L [facility]/L [facility] Anion gap [Moles/Vol] 10 mmol/L 3 - 13 mmol/L [facility] AST [Catalytic activity/Vol] 16 U/L NINF - 34 U/L [facility] Bilirubin [Mass/Vol] 0.4 mg/dL NINF - 1.2 mg/dL [facility] Calcium [Mass/Vol] 11.2 mg/dL High 8.4 - 10. 2 mg/dL [facility] Chloride [Moles/Vol] 98 mmol/L 98 - 10 7 mmol/L [facility] CO2 [Moles/Vol] 24 mmol/L 22 - 29 mmol/L [facility] Creatinine [Mass/Vol] 1.16 mg/dL 0.72 - 1.25 mg/dL [facility] GFR/1.73 sq M.predicted (S/P/Bld) [Vol rate/Area] 76.3 mL/min - PINF [facility] Comment on above: Calculation based on the Chronic Kidney Disease Epidemiology Collaboration (CKD-EPI) equation refit without adjustment for race Glucose [Mass/Vol] 108 mg/dL High 74 - 100 mg/dL [facility] Interpretation and review of laboratory results Abnormal [facility] Potassium [Moles/Vol] 4 mmol/L 3.5 - 5.1 mmol/L [facility] Comment on above: Plasma potassium jeri ues may be up to 0.5 mmol/L lower than serum values. Protein [Mass/Vol] 7.2 g/dL 6.4 - 8.3 g/dL [facility] Sodium [Moles/Vol] 132 mmol/L Low 136 - 145 mmol/L [facility] Urea nitrogen [Mass/Vol] 11 mg/dL 9 - 23 mg/d L [facility] ED Nursing Noteon 12-22-2024 ED Nursing Note Levo titrated to 2mcg/min. Patient BP remains stable. Normal [facility] ED Nursing Note Levo titrated to 4mcg/min. BP remains stable. Patient asymptomatic. Normal [facility] ED Nursing Note Levo titrated to 6mcg/min. BP remains stable. Patient asymptomatic. Normal [facility] ED Nursing Note Report given to Parish NEWTON Normal [facility] ED Nursing Note Dressing change completed with ABD pads, 2x2s and tape. Pt repostioned and saturated chucks removed Normal [facility] ED Nursing Note Messaged pharmacy regarding missing vancomycin dose Normal [facility] ED Nursing Note Report given to Mary NEWTON for lunch coverage Normal [facility] ED Provider Noteon ED Provider Note HPI Chief Complaint Patient presents with ? Wound Infection Pt arrives by life care from [facility] [place], [facility] pt has had wound infection [...] his facility about a week ago from [facility] as he has SCC treating with [...] typical urinary output. 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 All images taken were transmitted and stored on a secure [employer] located within a Media Folder Tab by a registered [employer] Application Device. See "Media" tab in Epic or photo as below. [place] Coma Scale Score: 15 Patient History No [...] HENT: Head: Normocephalic and atraumatic. Mouth/Throat: Lips: [place]. Mouth: Mucous membranes are moist. Cardiovascular: Rate [...] Navas MD (more content not included)... Normal [facility] ED Provider Note Emergency Department Encounter [facility] EMERGENCY DEPT Patient: Kevan La : [...] toward the left greater trochanter. He is usp had reported that he is currently on chemotherapy. He was hospitalized recently due to concerns of an abscess and had this managed by general surgery at [facility]. He receives most of his care for hidradenitis suppurativa at and is requesting to be transferred given that they are familiar with his care. Believe this is appropriate due to patient will require further evaluation by the surgery and primary team taking care of his chronic wound. We will continue IV antibiotics and IV pressors and [place] [facility] [place]. Diagnostics interpreted by me: I personally discussed the patient's management with other clinicians: Critical Care note: This patient was unstable and required constant supervision by me for 35 minutes during their visit. The patient's condition requiring intervention included: sepsis evaluation, multiple reassessments, vasopressors. This critical care time did not include time for procedures or time spent by the physicians preschool assistant principal if they were caring for this patient. [...] for clarification.) Levi Mack, DO Acute Care [facility] Levi Mack, DO 12/22/24 1730 Levi Mack, DO 12/22/24 1755 [facility] ED Provider Note I received this patient in signout who has been awaiting transfer to [facility] for septic shock in the setting of a left buttock wound requiring Levophed. I reviewed his labs and his medications and unfortunately has not been dosed with Zosyn since 1 PM. I reordered that and also timed for every 6 hours. He has been boarding in our emergency department for 16 hours now. We reached out to [facility] and they stated that there would [...] fluid responsive. I reached back out to [facility] to get him accepted to a regular nursing floor. I spoke with Dr Benitez at [facility] who accepted the patient to the regular nursing floor but they will still not have beds until most likely later this afternoon so will plan to admit him here medically so that the can be under the supervision and care of a hospitalist. Admitted in stable condition. Mary Calvert MD 12/23/24 0629 Normal [facility] ED Provider Note Pt signed out to me by Dr. Mack. Pt is awaiting transfer to for septic shock in setting of left buttock wound. Mani Dc DO 12/23/24 0115 Normal [facility] LACTIC ACID WITH REFLEXon Lactate [Moles/Vol] 1.7 mmol/L Normal 0.5-2.2 [facility] Comment on above: Performed By: #### L [id number] ####Car Rental Agency Manager: JAZLYN JIMENEZ ([phone])[facility] ([address] Laboratory - Chemistry and C hemistry - challengeon 12-22-2024 Lactate [Moles/Vol] 1.7 mmol/L 0.5 - 2. 2 mmol/L [facility] [facility] Cell countson 12-22-2024 Band form neutrophils (Bld) [#/Vol] 0.4 10*3/uL High NINF - 0.0 10*3/uL [facility] Band form neutrophils/100 WBC (Bld) 2 % High NINF - 0 % [facility] Basophils (Bld) [#/Vol] 0.2 10*3/uL 0.0 - 0.2 10*3/uL [facility] Basophils/100 WBC (Bld) 1 % 0 - 2 % [facility] Lymphocytes (Bld) [#/Vol] 0.8 10*3/uL Low 1.0 - 4.3 10*3/uL [facility] Lymphocytes/100 WBC (Bld) 4 % Low 15 - 45 % [facility] Monocytes (Bld) [#/Vol] 1 10*3/uL High 0.0 - 0.9 10*3/uL [facility] Monocytes/100 WBC (Bld) 5 % 5 - 13 % [facility] Neutrophils (Bld) [#/Vol] 17.5 10*3/uL High 1.8 - 7.5 10*3/uL [facility] Ovalocytes LM Ql (Bld) Moderate Abnormal (none) [facility] Poikilocytosis LM Ql (Bld) Moderate Abnormal (none) [facility] RBC morphology finding Nom (Bld) abnormal [facility] Segmented neutrophils/100 WBC (Bld) 88 % High 38 - 82 % [facility] Stomatocytes LM Ql (Bld) Moderate Abnormal (none) [facility] MANUAL DIFFERENTIAL (CELLAVI CHRIS)on 12-22-2024 BAND NEUTROPHILS TOTAL PER COUNTED LEUKOCYTES BY MANUAL COUNT 2 Normal [facility] Comment on above: Performed By: #### L [id number], [id number] #### [employer]ental [employer] Manager: JAZLYN JIMENEZ ([phone]) [facility] [address] [place] [address] [place] BANDS (10*3/UL) IN BLOOD-CELLAVISION 0.4 10*3/uL High <=0.0 [facility] Comment on above: Performed By: #### Kamila [id number], [id number] #### [employer]ental [employer] Manager: JAZLYN JIMENEZ ([phone]) [facility] [address] [place] [address] [place] BASOPHILS (10*3/UL) IN BLOOD-CELLAVISION 0.2 10*3/uL Normal 0.0-0.2 [facility] Comment on above: Performed By: #### L [id number], [id number] #### [employer] Manager: JAZLYN JIMENEZ ([phone]) [facility] [address] [place] [address] [place] BASOPHILS TOTAL PER COUNTED LEUKOCYTES BY MANUAL COUNT 1 Normal [facility] Comment on above: Performed By: #### L [id number], [id number] #### [employer] Manager: JAZLYN JIMENEZ ([phone]) [facility] [address] [place] [address] [place] BASOPHILS/100 LEUKOCYTES IN BLOOD-CELLAVISION 1 % Normal 0-2 [facility] Comment on above: Performed By: #### L [id number], [id number] #### [employer] Rental [employer] Manager: JAZLYN JIMENEZ ([phone]) [facility] ([facility]) [address] [place] [address] [place] BLASTS TOTAL PER COUNTED LEUKOCYTES BY MANUAL COUNT Normal [facility] Comment on above: Performed By: #### L [id number], [id number] #### [employer] Rental [employer] Manager: JAZLYN JIMENEZ ([phone]) [facility] ([facility]) [address] [place] [address] [place] EOSINOPHILS TOTAL PER COUNTED LEUKOCYTES BY MANUAL COUNT Normal [facility] Comment on above: Performed By: #### L [id number], [id number] #### [employer]ental [employer] Manager: JAZLYN JIMENEZ ([phone]) [facility] ([facility]) [address] [place] [address] [place] LYMPHOCYTES (10*3/UL) IN BLOOD-CELLAVISION 0.8 10*3/uL Low 1.0-4.3 [facility] Comment on above: Performed By: #### L [id number], [id number] #### [employer] Rental [employer] Manager: JAZLYN JIMENEZ ([phone]) [facility] ([facility]) [address] [place] [address] [place] LYMPHOCYTES TOTAL PER COUNTED LEUKOCYTES BY MANUAL COUNT 4 Normal [facility] Comment on above: Performed By: #### L [id number], [id number] #### [employer] Rental [employer] Manager: JAZLYN JIMENEZ ([phone]) [facility] ([facility]) [address] [place] [address] [place] LYMPHOCYTES/100 LEUKOCYTES IN BLOOD-CELLAVISION 4 % Low 15-45 [facility] Comment on above: Performed By: #### L [id number], [id number] #### [employer] Rental Agency Manager: JAZLYN JIMENEZ ([phone]) [facility]) [address] [place] [address] [place] METAMYELOCYTES TOTAL PER COUNTED LEUKOCYTES BY MANUAL COUNT Normal [facility] Comment on above: Performed By: #### L [id number], [id number] #### [employer] Rental [employer] Manager: JAZLYN JIMENEZ ([phone]) [facility] ([facility]) [address] [place] [address] [place] MONOCYTES (10*3/UL) IN BLOOD-CELLAVISION 1.0 10*3/uL High 0.0-0.9 [facility] Comment on above: Performed By: #### L [id number], [id number] #### [employer] Rental [employer] Manager: JAZLYN JIMENEZ ([phone]) [facility] ([facility]) [address] [place] [address] [place] MONOCYTES TOTAL PER COUNTED LEUKOCYTES BY MANUAL COUNT 5 Normal [facility] Comment on above: Performed By: #### L [id number], [id number] #### [employer] Rental [employer] Manager: JAZLYN JIMENEZ ([phone]) [facility] ([facility]) [address] [place] [address] [place] MONOCYTES/100 LEUKOCYTES IN BLOOD-SAM 5 % Normal 5-13 [facility] Comment on above: Performed By: #### L [id number], [id number] #### [employer] Rental [employer] Manager: JAZLYN JIMENEZ ([phone]) [facility] [address] [place] [address] [place] MYELOCYTES COUNTED BY MANUAL COUNT Normal [facility] Comment on above: Performed By: #### L [id number], [id number] #### [employer] Rental [employer] Manager: JAZLYN JIMENEZ ([phone]) [facility] [address] [place] [address] [place] NEUTROPHILS BAND FORM/100 LEUKOCYTES IN BLOOD-CELLAVISI 2 % High <=0 [facility] Comment on above: Performed By: #### L [id number], [id number] #### [employer] Rental Agency Manager: JAZLYN JIMENEZ ([phone]) [facility] ([facility]) [address] [place] [address] [place] NEUTROPHILS TOTAL PER COUNTED LEUKOCYTES BY MANUAL COUNT 89 Normal [facility] Comment on above: Performed By: #### L [id number], [id number] #### [employer] Rental Agency Manager: JAZLYN JIMENEZ ([phone]) [facility] [address] [place] [address] [place] OVALOCYTES PRESENCE IN BLOOD BY LIGHT MICROSCOPY Moderate Abnormal (none) [facility] Comment on above: Performed By: #### L [id number], [id number] #### [employer] Rental Agency Manager: JAZLYN JIMENEZ ([phone]) [facility] ([facility]) [address] [place] [address] POIKILOCYTOSIS (PRESENCE) IN BLOOD BY LIGHT MICROSCOPY Moderate Abnormal (none) [facility] Comment on above: Performed By: #### L [id number], [id number] #### [employer] Rental [employer] Manager: JAZLYN JIMENEZ ([phone]) [facility] [address] [place] [address] [place] PROMYELOCYTES TOTAL PER COUNTED LEUKOCYTES BY MANUAL COUNT Normal [facility] Comment on above: Performed By: #### L [id number], [id number] #### [employer] Rental [employer] Manager: JAZLYN JIMENEZ ([phone]) [facility] [address] [place] [address] RBC MORPHOLOGY IN BLOOD abnormal Normal [facility] Comment on above: Performed By: #### L [id number], [id number] #### [employer] Rental Agency Manager: JAZLYN JIMENEZ ([phone]) [facility] [address] [place] [address] [place] SEGMENTED NEUTROPHILS (10*3/UL) IN BLOOD-CELLAVISION 17.5 10*3/uL High 1.8-7.5 [facility] Comment on above: Performed By: #### L [id number], [id number] #### [employer] Rental Agency Manager: JAZLYN JIMENEZ ([phone]) [facility] [address] [place] [address] [place] SEGMENTED NEUTROPHILS/100 LEUKOCYTES-CE 88 % High 38-82 [facility] Comment on above: Performed By: #### L [id number], [id number] #### [employer] Rental [employer] Manager: JAZLYN JIMENEZ ([phone]) [facility] [address] [place] [address] [place] STOMATOCYTES IN BLOOD BY LIGHT MICROSCOPY Moderate Abnormal (none) [facility] Comment on above: Performed By: #### L [id number], [id number] #### [employer] Rental [employer] Manager: JAZLYN JIMENEZ ([phone]) [facility] ([facility]) [address] [place] [address] UNCLASSIFIED CELLS TOTAL PER COUNTED LEUKOCYTES BY MANUAL COUNT Normal [facility] Comment on above: Performed By: #### L [id number], [id number] #### [employer] Rental Agency Manager: JAZLYN JIMENEZ ([phone]) [facility]) [address] [place] [address] VARIANT LYMPHOCYTES TOTAL PER COUNTED LEUKOCYTES BY MANUAL COUNT Normal [facility] Comment on above: Performed By: #### L [id number], [id number] #### [employer] Rental [employer] Manager: JAZLYN JIMENEZ ([phone]) [facility] ([facility]) [address] [place] [address] No Panel Informationon 12-22 Atypical Lymphocytes Manual [facility] Bands Manual 2 [facility] Basophils Manual 1 [facility] Blasts [facility] Eosin[facility] Manual [facility] Interpretation and review of laboratory results Abnormal [facility] Lymphocytes Manual 4 [facility] Metamyelocytes Manual [facility] Monocytes Manual 5 [facility] Myelocytes Manual [facility] Neutrophils Manual 89 [facility] Promyelocytes Manual [facility] Unclassified Cells, Manual [facility] Interpretation and review of laboratory results Normal [facility] Progress Noteon 12-22-2024 Progress Note Culture reviewed. Awaiting sensitivity results Normal [facility] Urinalysis complete panel (U )on 12-22-2024 Bilirubin Ql (U) Negative Negative mg/dL [facility] Clarity (U) Clear Clear [facility] Color (U) Light Yellow Lt. Yellow [facility] Glucose Ql (U) Normal Normal (<70) mg/dL [facility] Hemoglobin Ql (U) Negative Negative mg/dL [facility] Interpretation and review of laboratory results Normal [facility] Ketones (U) [Mass/Vol] Negative Negat sulema mg/dL [facility] Leukocyte esterase Test strip Ql (U) Negative Negative Gabe/uL [facility] Nitrite Ql (U) Negative Negative [facility] th pH (U) 6.0 [pH] 5.0 - 8.0 pH [facility] Protein (U) [Mass/Vol] Negative Negat sulema mg/dL [facility] Specific gravity (U) [Rel density] 1.009 1.005 - 1.030 [facility] Urobilinogen (U) [Mass/Vol] Normal Normal (0-1) mg/dL [facility] XR Chest Single viewon 12-22 1. Lines/Tubes/Devices/ [...] Electronically Signed Date/Time: 12/22/2024 1:25 PM EDT [facility] Patient Name: KEVAN LA : 1975 [...] was obtained and reviewed. Special views: None. [facility] Fidel Navas MD - 12/22/2024 Patient [...] Electronically Signed Date/Time: 12/22/2024 1:25 PM EDT [facility] Radiology Study observation (narrative) [facility] XR Chest Single viewOrdered By: Fidel Navas on 12-22-2024 [facility] Work Phone: XR Hip - left 3 Viewson 1. Irregular soft tissue heterogeneity and subcutaneous emphysema projecting of the left thigh soft tissues. Patient was noted to have an abscess in this region on prior CT. Consider follow-up cross-sectional imaging. 2. No acute osseous abnormality identified. Report Dictated on Electronically Signed By: Jamison Covarrubias MD Electronically Signed Date/Time: 12/22/2024 1:33 PM EDT [facility] 1975 [id number] Exam Date/Time: 12/22/2024 13:20 Procedure: XR HIP [...] present involving the left thigh soft tissues. [facility] Jamison Covarrubias MD - 12/22/2024 Patient Name: [facility] LA [facility] 1975 [id number] Exam Date/Time: 12/22/2024 13:20 Procedure: XR HIP [...] Electronically Signed Date/Time: 12/22/2024 1:33 PM EDT [facility] Radiology Study observation (narrative) [facility] X[facility] Hip - left 3 ViewsOrdered By: Jamison Covarrubias on 12-22-2024 [facility] Work Phone: CBC W Auto Differential pane l (Bld)on 12-19-2024 Basophils (Bld) [#/Vol] 0.05 10*3/uL [facility] Basophils/100 WBC (Bld) 0.3 % 0.0 - 2.0 % [facility] Eosinophils (Bld) [#/Vol] 0.4 10*3/uL [facility] Eosinophils/100 WBC (Bld) 2.7 % 0.0 - 6.0 % [facility] Erythrocyte distribution width (RBC) [Ratio] 17.4 % High 11.5 - 14.5 % [facility] Hematocrit (Bld) [Volume fraction] 27.2 % Low 41.0 - 52.0 % [facility] Hemoglobin (Bld) [Mass/Vol] 8.2 g/dL Low 13.5 - 17.5 g/dL [facility] Immature granulocytes (Bld) [#/Vol] 0.07 10*3/uL [facility] Immature granulocytes/100 WBC (Bld) 0.5 % 0.0 - 0.9 % [facility] Interpretation and review of laboratory results Abnormal [facility] Lymphocytes (Bld) [#/Vol] 1.9 10*3/uL [facility] Lymphocytes/100 WBC (Bld) 12.7 % 13.0 - 44.0 % [facility] MCH (RBC) [Entitic mass] 25.7 pg Low 26. 0 - 34.0 pg [facility] MCHC (RBC) [Mass/Vol] 30.1 g/dL Low 32.0 - 36.0 g/dL [facility] MCV (RBC) [Entitic vol] 85 fL 80 - 100 fL [facility] Monocytes (Bld) [#/Vol] 1.38 10*3/uL High [facility] Monocytes/100 WBC (Bld) 9.2 % 2.0 - 10.0 % [facility] Neutrophils (Bld) [#/Vol] 11.2 10*3/uL High [facility] Neutrophils/100 WBC (Bld) 74.6 % 40.0 - 80.0 % [facility] Nucleated RBC/100 WBC (Bld) [Ratio] 0 % [facility] Platelets (Bld) [#/Vol] 699 10*3/uL High [facility] RBC (Bld) [#/Vol] 3.19 10*6/uL Low [facility] WBC (Bld) [#/Vol] 15 10*3/uL High [facility] Magnesiumon 12-19-2024 Magnesium [Mass/Vol] 2.08 mg/dL 1.60 - 2.40 mg/dL [facility] Magnesium [Mass/Vol]on 12-19 Interpretation and review of laboratory results Normal [facility] No Panel Informationon 12-19 [facility] Renal function 2000 panelon 12-19-2024 Albumin BCP dye [Mass/Vol] 3.1 g/dL Low 3.4 - 5.0 g/dL [facility] Anion gap [Moles/Vol] 11 mmol/L 10 - 2 0 mmol/L [facility] Calcium [Mass/Vol] 10.9 mg/dL High 8.6 - 10. 6 mg/dL [facility] Chloride [Moles/Vol] 99 mmol/L 98 - 10 7 mmol/L [facility] CO2 [Moles/Vol] 31 mmol/L 21 - 32 mmol/L [facility] Creatinine [Mass/Vol] 1.14 mg/dL 0.50 - 1.30 mg/dL [facility] GFR/1.73 sq M.predicted among non-blacks MDRD (S/P/Bld) [Vol rate/Area] 78 mL/min/{1.73_m2} - PINF [facility] Glucose [Mass/Vol] 102 mg/dL High 74 - 99 mg/[facility] Interpretation and review of laboratory results Abnormal [facility] Phosphate [Mass/Vol] 2.7 mg/dL 2.5 - 4 .9 mg/dL [facility] Potassium [Moles/Vol] 4.9 mmol/L 3.5 - 5.3 mmol/L [facility] Sodium [Moles/Vol] 136 mmol/L 136 - 145 mmol/L [facility] Urea nitrogen [Mass/Vol] 13 mg/dL 6 - 23 mg/d L [facility] CBC W Auto Differential pane l (Bld)on 12-18-2024 Basophils (Bld) [#/Vol] 0.07 10*3/uL [facility] Basophils/100 WBC (Bld) 0.5 % 0.0 - 2.0 % [facility] Eosinophils (Bld) [#/Vol] 0.63 10*3/uL [facility] Eosinophils/100 WBC (Bld) 4.8 % 0.0 - 6.0 % [facility] Erythrocyte distribution width (RBC) [Ratio] 17.3 % High 11.5 - 14.5 % [facility] Hematocrit (Bld) [Volume fraction] 28.5 % Low 41.0 - 52.0 % [facility] Hemoglobin (Bld) [Mass/Vol] 8.5 g/dL Low 13.5 - 17.5 g/dL [facility] Immature granulocytes (Bld) [#/Vol] 0.06 10*3/uL [facility] Immature granulocytes/100 WBC (Bld) 0.5 % 0.0 - 0.9 % [facility] Interpretation and review of laboratory results Abnormal [facility] Lymphocytes (Bld) [#/Vol] 2.06 10*3/uL [facility] Lymphocytes/100 WBC (Bld) 15.6 % 13.0 - 44.0 % [facility] MCH (RBC) [Entitic mass] 25.1 pg Low 26. 0 - 34.0 pg [facility] MCHC (RBC) [Mass/Vol] 29.8 g/dL Low 32.0 - 36.0 g/dL [facility] MCV (RBC) [Entitic vol] 84 fL 80 - 100 fL [facility] Monocytes (Bld) [#/Vol] 1.3 10*3/uL High [facility] Monocytes/100 WBC (Bld) 9.8 % 2.0 - 10.0 % [facility] Neutrophils (Bld) [#/Vol] 9.09 10*3/uL High [facility] Neutrophils/100 WBC (Bld) 68.8 % 40.0 - 80.0 % [facility] Nucleated RBC/100 WBC (Bld) [Ratio] 0 % [facility] Platelets (Bld) [#/Vol] 705 10*3/uL High [facility] RBC (Bld) [#/Vol] 3.38 10*6/uL Low [facility] WBC (Bld) [#/Vol] 13.2 10*3/uL High [facility] ECG 12 LeadOrdered By: Yamilet Villa on 12-18-2024 Atrial Rate 72 BPM [facility] Work Phone: P [place] 58 degrees [facility] Work Phone: [phone] P Offset 180 ms [facility] Work Phone: [phone] P Onset 141 ms [facility] Work Phone: [phone] DC Interval 154 ms [facility] Work Phone: [phone] Q Onset 218 ms [facility] Work Phone: [phone] QRS Count 12 beats [facility] Work Phone: [phone] QRS Duration 92 ms [facility] Work Phone: [phone] QT Interval 382 ms [facility] Work Phone: [phone] QTC Calculation(Bazett) 418 ms U [facility] Work Phone: [phone] QTC Frederic[place] 406 ms [facility] Work Phone: R [place] 55 degrees [facility] Work Phone: T [place] 43 degrees [facility] Work Phone: T Offset 409 ms [facility] Work Phone: [phone] Ventricular Rate 72 BPM [facility] Work Phone: [phone] [facility] Work Phone: ECG 12 Leadon 12-18-2024 [facility] Work Phone: CBC W Auto Differential pane l (Bld)on 12-17-2024 Basophils (Bld) [#/Vol] 0.09 10*3/uL [facility] Basophils/100 WBC (Bld) 0.7 % 0.0 - 2.0 % [facility] Eosinophils (Bld) [#/Vol] 0.65 10*3/uL [facility] Eosinophils/100 WBC (Bld) 4.9 % 0.0 - 6.0 % [facility] Erythrocyte distribution width (RBC) [Ratio] 17.4 % High 11.5 - 14.5 % [facility] Hematocrit (Bld) [Volume fraction] 29 % Low 41.0 - 52.0 % [facility] Hemoglobin (Bld) [Mass/Vol] 8.5 g/dL Low 13.5 - 17.5 g/dL [facility] Immature granulocytes (Bld) [#/Vol] 0.06 10*3/uL [facility] Immature granulocytes/100 WBC (Bld) 0.4 % 0.0 - 0.9 % [facility] Interpretation and review of laboratory results Abnormal [facility] Lymphocytes (Bld) [#/Vol] 2.18 10*3/uL [facility] Lymphocytes/100 WBC (Bld) 16.3 % 13.0 - 44.0 % [facility] MCH (RBC) [Entitic mass] 25.1 pg Low 26. 0 - 34.0 pg [facility] MCHC (RBC) [Mass/Vol] 29.3 g/dL Low 32.0 - 36.0 g/dL [facility] MCV (RBC) [Entitic vol] 86 fL 80 - 100 fL [facility] Monocytes (Bld) [#/Vol] 1.22 10*3/uL High [facility] Monocytes/100 WBC (Bld) 9.1 % 2.0 - 10.0 % [facility] Neutrophils (Bld) [#/Vol] 9.17 10*3/uL High [facility] Neutrophils/100 WBC (Bld) 68.6 % 40.0 - 80.0 % [facility] Nucleated RBC/100 WBC (Bld) [Ratio] 0 % [facility] Platelets (Bld) [#/Vol] 754 10*3/uL High [facility] RBC (Bld) [#/Vol] 3.38 10*6/uL Low [facility] WBC (Bld) [#/Vol] 13.4 10*3/uL High [facility] Magnesiumon 12-17-2024 Magnesium [Mass/Vol] 1.94 mg/dL 1.60 - 2.40 mg/dL [facility] Magnesium [Mass/Vol]on 12-17 Interpretation and review of laboratory results Normal [facility] No Panel Informationon 12-17 [facility] Renal function 2000 panelon 12-17-2024 Albumin BCP dye [Mass/Vol] 3.3 g/dL Low 3.4 - 5.0 g/dL [facility] Anion gap [Moles/Vol] 12 mmol/L 10 - 2 0 mmol/L [facility] Calcium [Mass/Vol] 11.3 mg/dL High 8.6 - 10. 6 mg/dL [facility] Chloride [Moles/Vol] 99 mmol/L 98 - 10 7 mmol/L [facility] CO2 [Moles/Vol] 30 mmol/L 21 - 32 mmol/L [facility] Creatinine [Mass/Vol] 1.18 mg/dL 0.50 - 1.30 mg/dL [facility] GFR/1.73 sq M.predicted among non-blacks MDRD (S/P/Bld) [Vol rate/Area] 75 mL/min/{1.73_m2} - PINF [facility] Glucose [Mass/Vol] 92 mg/dL 74 - 99 mg/dL [facility] Interpretation and review of laboratory results Abnormal [facility] Phosphate [Mass/Vol] 2.6 mg/dL 2.5 - 4 .9 mg/dL [facility] Potassium [Moles/Vol] 4.1 mmol/L 3.5 - 5.3 mmol/L [facility] Sodium [Moles/Vol] 137 mmol/L 136 - 145 mmol/L [facility] Urea nitrogen [Mass/Vol] 14 mg/dL 6 - 23 mg/d L [facility] CBC W Auto Differential pane l (Bld)on 12-16-2024 Basophils (Bld) [#/Vol] 0.07 10*3/uL [facility] Basophils/100 WBC (Bld) 0.5 % 0.0 - 2.0 % [facility] Eosinophils (Bld) [#/Vol] 0.72 10*3/uL High [facility] Eosinophils/100 WBC (Bld) 5.6 % 0.0 - 6.0 % [facility] Erythrocyte distribution width (RBC) [Ratio] 17.3 % High 11.5 - 14.5 % [facility] Hematocrit (Bld) [Volume fraction] 27.8 % Low 41.0 - 52.0 % [facility] Hemoglobin (Bld) [Mass/Vol] 8.3 g/dL Low 13.5 - 17.5 g/dL [facility] Immature granulocytes (Bld) [#/Vol] 0.07 10*3/uL [facility] Immature granulocytes/100 WBC (Bld) 0.5 % 0.0 - 0.9 % [facility] Interpretation and review of laboratory results Abnormal [facility] Lymphocytes (Bld) [#/Vol] 2.28 10*3/uL [facility] Lymphocytes/100 WBC (Bld) 17.9 % 13.0 - 44.0 % [facility] MCH (RBC) [Entitic mass] 25.3 pg Low 26. 0 - 34.0 pg [facility] MCHC (RBC) [Mass/Vol] 29.9 g/dL Low 32.0 - 36.0 g/dL [facility] MCV (RBC) [Entitic vol] 85 fL 80 - 100 fL [facility] Monocytes (Bld) [#/Vol] 1.31 10*3/uL [facility] Monocytes/100 WBC (Bld) 10.3 % 2.0 - 10.0 % [facility] Neutrophils (Bld) [#/Vol] 8.31 10*3/uL [facility] Neutrophils/100 WBC (Bld) 65.2 % 40.0 - 80.0 % [facility] Nucleated RBC/100 WBC (Bld) [Ratio] 0 % [facility] Platelets (Bld) [#/Vol] 660 10*3/uL [facility] RBC (Bld) [#/Vol] 3.28 10*6/uL Low [facility] WBC (Bld) [#/Vol] 12.8 10*3/uL High [facility] RF videography Hypopharynx a nd Esophagus Views for swallowing function W speech and W barium contrast Veronica 12-16-2024 [facility] MMODAL [facility] MMODAL [facility] Work Phone: Radiology Study observation (narrative) [facility] Work Phone: RF videography Hypopharynx a nd Esophagus Views for swallowing function W speech and W barium contrast POOrdered By: Jayson Abdi on 12-16-2024 [facility] Work Phone: CLINICAL LEADER Modified Barium Swallow Evaluationon 12-16-2024 [facility] Work Phone: CBC W Auto Differential pane l (Bld)Ordered By: Ronna Bergeron on 12-15-2024 Basophils (Bld) [#/Vol] 0.06 10*3/uL [facility] Basophils/100 WBC (Bld) 0.4 % 0.0 - 2.0 % [facility] Eosinophils (Bld) [#/Vol] 0.69 10*3/uL [facility] Eosinophils/100 WBC (Bld) 4.9 % 0.0 - 6.0 % [facility] Erythrocyte distribution width (RBC) [Ratio] 17.3 % High 11.5 - 14.5 % [facility] Hematocrit (Bld) [Volume fraction] 27.6 % Low 41.0 - 52.0 % [facility] Hemoglobin (Bld) [Mass/Vol] 8.5 g/dL Low 13.5 - 17.5 g/dL [facility] Immature granulocytes (Bld) [#/Vol] 0.06 10*3/uL [facility] Immature granulocytes/100 WBC (Bld) 0.4 % 0.0 - 0.9 % [facility] Interpretation and review of laboratory results Abnormal [facility] Lymphocytes (Bld) [#/Vol] 2.15 10*3/uL [facility] Lymphocytes/100 WBC (Bld) 15.4 % 13.0 - 44.0 % [facility] MCH (RBC) [Entitic mass] 26 pg 26. 0 - 34.0 pg [facility] MCHC (RBC) [Mass/Vol] 30.8 g/dL Low 32.0 - 36.0 g/dL [facility] MCV (RBC) [Entitic vol] 84 fL 80 - 100 fL [facility] Monocytes (Bld) [#/Vol] 1.49 10*3/uL High [facility] Monocytes/100 WBC (Bld) 10.7 % 2.0 - 10.0 % [facility] Neutrophils (Bld) [#/Vol] 9.49 10*3/uL [facility] Neutrophils/100 WBC (Bld) 68.2 % 40.0 - 80.0 % [facility] Nucleated RBC/100 WBC (Bld) [Ratio] 0 % [facility] Platelets (Bld) [#/Vol] 696 10*3/uL High [facility] RBC (Bld) [#/Vol] 3.27 10*6/uL Low [facility] WBC (Bld) [#/Vol] 13.9 10*3/uL High [facility] Comprehensive metabolic 2000 panelOrdered By: Eitan Calvo on 12-15-2024 Albumin BCP dye [Mass/Vol] 3.1 g/dL Low 3.4 - 5.0 g/dL [facility] ALP [Catalytic activity/Vol] 65 U/L 33 - 120 U/L [facility] ALT With P-5'-P [Catalytic activity/Vol] 16 U/L 10 - 52 U/L [facility] Anion gap [Moles/Vol] 15 mmol/L 10 - 2 0 mmol/L [facility] AST With P-5'-P [Catalytic activity/Vol] 17 U/L 9 - 39 U/L [facility] Bilirubin [Mass/Vol] 0.2 mg/dL 0.0 - 1 .2 mg/dL [facility] Calcium [Mass/Vol] 10.6 mg/dL 8.6 - 10. 6 mg/dL [facility] Chloride [Moles/Vol] 100 mmol/L 98 - 10 7 mmol/L [facility] CO2 [Moles/Vol] 28 mmol/L 21 - 32 mmol/L [facility] Creatinine [Mass/Vol] 1.12 mg/dL 0.50 - 1.30 mg/dL [facility] GFR/1.73 sq M.predicted among non-blacks MDRD (S/P/Bld) [Vol rate/Area] 80 mL/min/{1.73_m2} - PINF [facility] Glucose [Mass/Vol] 107 mg/dL High 74 - 99 [facility] Interpretation and review of laboratory results Abnormal [facility] Potassium [Moles/Vol] 4.6 mmol/L 3.5 - 5.3 mmol/L [facility] Protein [Mass/Vol] 7.2 g/dL 6.4 - 8.2 g/dL [facility] Sodium [Moles/Vol] 138 mmol/L 136 - 145 mmol/L [facility] Urea nitrogen [Mass/Vol] 12 mg/dL 6 - 23 mg/d L [facility] CBC W Auto Differential pane l (Bld)on 12-14-2024 Basophils (Bld) [#/Vol] 0.07 10*3/uL [facility] Basophils/100 WBC (Bld) 0.6 % 0.0 - 2.0 % [facility] Eosinophils (Bld) [#/Vol] 0.67 10*3/uL [facility] Eosinophils/100 WBC (Bld) 5.9 % 0.0 - 6.0 % [facility] Erythrocyte distribution width (RBC) [Ratio] 17.2 % High 11.5 - 14.5 % [facility] Hematocrit (Bld) [Volume fraction] 27.8 % Low 41.0 - 52.0 % [facility] Hemoglobin (Bld) [Mass/Vol] 8.1 g/dL Low 13.5 - 17.5 g/dL [facility] Immature granulocytes (Bld) [#/Vol] 0.05 10*3/uL [facility] Immature granulocytes/100 WBC (Bld) 0.4 % 0.0 - 0.9 % [facility] Interpretation and review of laboratory results Abnormal [facility] Lymphocytes (Bld) [#/Vol] 2.33 10*3/uL [facility] Lymphocytes/100 WBC (Bld) 20.5 % 13.0 - 44.0 % [facility] MCH (RBC) [Entitic mass] 25.2 pg Low 26. 0 - 34.0 pg [facility] MCHC (RBC) [Mass/Vol] 29.1 g/dL Low 32.0 - 36.0 g/dL [facility] MCV (RBC) [Entitic vol] 86 fL 80 - 100 fL [facility] Monocytes (Bld) [#/Vol] 1.21 10*3/uL High [facility] Monocytes/100 WBC (Bld) 10.6 % 2.0 - 10.0 % [facility] Neutrophils (Bld) [#/Vol] 7.04 10*3/uL [facility] Neutrophils/100 WBC (Bld) 62 % 40.0 - 80.0 % [facility] Nucleated RBC/100 WBC (Bld) [Ratio] 0 % [facility] Platelets (Bld) [#/Vol] 699 10*3/uL High [facility] RBC (Bld) [#/Vol] 3.22 10*6/uL Low [facility] WBC (Bld) [#/Vol] 11.4 10*3/uL [facility] CBC W Auto Differential pane l (Bld)on 12-13-2024 Basophils (Bld) [#/Vol] 0.05 10*3/uL [facility] Basophils/100 WBC (Bld) 0.5 % 0.0 - 2.0 % [facility] Eosinophils (Bld) [#/Vol] 0.11 10*3/uL [facility] Eosinophils/100 WBC (Bld) 1 % 0.0 - 6.0 % [facility] Erythrocyte distribution width (RBC) [Ratio] 16.8 % High 11.5 - 14.5 % [facility] Hematocrit (Bld) [Volume fraction] 25.4 % Low 41.0 - 52.0 % [facility] Hemoglobin (Bld) [Mass/Vol] 7.6 g/dL Low 13.5 - 17.5 g/dL [facility] Immature granulocytes (Bld) [#/Vol] 0.05 10*3/uL [facility] Immature granulocytes/100 WBC (Bld) 0.5 % 0.0 - 0.9 % [facility] Interpretation and review of laboratory results Abnormal [facility] Lymphocytes (Bld) [#/Vol] 1.74 10*3/uL [facility] Lymphocytes/100 WBC (Bld) 15.7 % 13.0 - 44.0 % [facility] MCH (RBC) [Entitic mass] 25.2 pg Low 26. 0 - 34.0 pg [facility] MCHC (RBC) [Mass/Vol] 29.9 g/dL Low 32.0 - 36.0 g/dL [facility] MCV (RBC) [Entitic vol] 84 fL 80 - 100 fL [facility] Monocytes (Bld) [#/Vol] 1.2 10*3/uL High [facility] Monocytes/100 WBC (Bld) 10.8 % 2.0 - 10.0 % [facility] Neutrophils (Bld) [#/Vol] 7.92 10*3/uL High [facility] Neutrophils/100 WBC (Bld) 71.5 % 40.0 - 80.0 % [facility] Nucleated RBC/100 WBC (Bld) [Ratio] 0 % [facility] Platelets (Bld) [#/Vol] 663 10*3/uL High [facility] RBC (Bld) [#/Vol] 3.01 10*6/uL Low [facility] WBC (Bld) [#/Vol] 11.1 10*3/uL [facility] Magnesiumon 12-13-2024 Magnesium [Mass/Vol] 1.97 mg/dL 1.60 - 2.40 mg/dL [facility] Magnesium [Mass/Vol]on 12-13 Interpretation and review of laboratory results Normal [facility] No Panel Informationon 12-13 [facility] Renal function 2000 panelon 12-13-2024 Albumin BCP dye [Mass/Vol] 3.1 g/dL Low 3.4 - 5.0 g/dL [facility] Anion gap [Moles/Vol] 12 mmol/L 10 - 2 0 mmol/L [facility] Calcium [Mass/Vol] 10.1 mg/dL 8.6 - 10. 6 mg/dL [facility] Chloride [Moles/Vol] 102 mmol/L 98 - 10 7 mmol/L [facility] CO2 [Moles/Vol] 29 mmol/L 21 - 32 mmol/L [facility] Creatinine [Mass/Vol] 1.01 mg/dL 0.50 - 1.30 mg/dL [facility] GFR/1.73 sq M.predicted among non-blacks MDRD (S/P/Bld) [Vol rate/Area] 90 mL/min/{1.73_m2} - PINF [facility] Glucose [Mass/Vol] 126 mg/dL High 74 - 99 mg/dL Uni [facility] Interpretation and review of laboratory results Abnormal [facility] Phosphate [Mass/Vol] 2.2 mg/dL Low 2.5 - 4 .9 mg/dL [facility] Potassium [Moles/Vol] 4.1 mmol/L 3.5 - 5.3 mmol/L [facility] Sodium [Moles/Vol] 139 mmol/L 136 - 145 mmol/L [facility] Urea nitrogen [Mass/Vol] 15 mg/dL 6 - 23 mg/d L [facility] CBC W Auto Differential pane l (Bld)on 12-12-2024 Basophils (Bld) [#/Vol] 0.06 10*3/uL [facility] Basophils/100 WBC (Bld) 0.5 % 0.0 - 2.0 % [facility] Eosinophils (Bld) [#/Vol] 0.66 10*3/uL [facility] Eosinophils/100 WBC (Bld) 5.1 % 0.0 - 6.0 % [facility] Erythrocyte distribution width (RBC) [Ratio] 16.7 % High 11.5 - 14.5 % [facility] Hematocrit (Bld) [Volume fraction] 26.5 % Low 41.0 - 52.0 % [facility] Hemoglobin (Bld) [Mass/Vol] 8.1 g/dL Low 13.5 - 17.5 g/dL [facility] Immature granulocytes (Bld) [#/Vol] 0.05 10*3/uL [facility] Immature granulocytes/100 WBC (Bld) 0.4 % 0.0 - 0.9 % [facility] Interpretation and review of laboratory results Abnormal [facility] Lymphocytes (Bld) [#/Vol] 1.86 10*3/uL [facility] Lymphocytes/100 WBC (Bld) 14.4 % 13.0 - 44.0 % [facility] MCH (RBC) [Entitic mass] 26 pg 26. 0 - 34.0 pg [facility] MCHC (RBC) [Mass/Vol] 30.6 g/dL Low 32.0 - 36.0 g/dL [facility] MCV (RBC) [Entitic vol] 85 fL 80 - 100 fL [facility] Monocytes (Bld) [#/Vol] 1.35 10*3/uL High [facility] Monocytes/100 WBC (Bld) 10.4 % 2.0 - 10.0 % [facility] Neutrophils (Bld) [#/Vol] 8.98 10*3/uL High [facility] Neutrophils/100 WBC (Bld) 69.2 % 40.0 - 80.0 % [facility] Nucleated RBC/100 WBC (Bld) [Ratio] 0 % [facility] Platelets (Bld) [#/Vol] 630 10*3/uL High [facility] RBC (Bld) [#/Vol] 3.11 10*6/uL Low [facility] WBC (Bld) [#/Vol] 13 10*3/uL [facility] ECG 12-LEADon 12-12-2024 ECG 12-LEAD Ventricular Rate 72 Atrial Rate 72 P-R Interval 154 QRS Duration 92 Q-T Interval 382 QTC Calculation(Bazett) 418 P [place] 58 R [place] 55 T [place] 43 QRS Count 12 Q Onset 218 P Onset 141 P Offset 180 T Offset 409 QTC Fred[place] 406 Diagnosis Normal sinus rhythm Normal ECG When compared with ECG of 12-DEC-2024 12:27, (unconfirmed) No significant change was found Confirmed by Bobby Villa ([id number]) on 12/18/2024 5:50:09 PM Normal [facility] Hepatic function 2000 panelo n 12-12-2024 Albumin BCP dye [Mass/Vol] 2.9 g/dL Low 3.4 - 5.0 g/dL [facility] ALP [Catalytic activity/Vol] 56 U/L 33 - 120 U/L [facility] ALT With P-5'-P [Catalytic activity/Vol] 7 U/L Low 10 - 52 U/L [facility] AST With P-5'-P [Catalytic activity/Vol] 6 U/L Low 9 - 39 U/L [facility] Bilirubin [Mass/Vol] 0.2 mg/dL 0.0 - 1 .2 mg/dL [facility] Bilirubin.direct [Mass/Vol] 0.1 mg/dL 0.0 - 0.3 mg/dL [facility] Interpretation and review of laboratory results Abnormal [facility] Protein [Mass/Vol] 6.9 g/dL 6.4 - 8.2 g/dL [facility] MR Thigh - left WO and W con trast Mp 12-12-2024 MMODAL [facility] Work Phone: [facility] Work Phone: Radiology Study observation (narrative) [facility] Work Phone: MR Thigh - left WO contrasto n 12-12-2024 [facility] MMODAL U[facility] MMODAL [facility] Work Phone: MR Thigh - left WO contrastO rdered By: Kong Armijo on 12-12-2024 [facility] Work Phone: Magnesiumon 12-12-2024 Magnesium [Mass/Vol] 2.01 mg/dL 1.60 - 2.40 mg/dL [facility] Magnesium [Mass/Vol]on 12-12 Interpretation and review of laboratory results Normal [facility] No Panel Informationon 12-12 [facility] Renal function 2000 panelon 12-12-2024 Albumin BCP dye [Mass/Vol] 3 g/dL Low 3.4 - 5.0 g/dL [facility] Anion gap [Moles/Vol] 11 mmol/L 10 - 2 0 mmol/L [facility] Calcium [Mass/Vol] 11.1 mg/dL High 8.6 - 10. 6 mg/dL [facility] Chloride [Moles/Vol] 103 mmol/L 98 - 10 7 mmol/L [facility] CO2 [Moles/Vol] 30 mmol/L 21 - 32 mmol/L [facility] Creatinine [Mass/Vol] 1.15 mg/dL 0.50 - 1.30 mg/dL [facility] GFR/1.73 sq M.predicted among non-blacks MDRD (S/P/Bld) [Vol rate/Area] 77 mL/min/{1.73_m2} - PINF [facility] Glucose [Mass/Vol] 102 mg/dL High 74 - 99 [facility] Interpretation and review of laboratory results Abnormal [facility] Phosphate [Mass/Vol] 2.9 mg/dL 2.5 - 4 .9 mg/dL [facility] Potassium [Moles/Vol] 4.7 mmol/L 3.5 - 5.3 mmol/L [facility] Sodium [Moles/Vol] 139 mmol/L 136 - 145 mmol/L [facility] Urea nitrogen [Mass/Vol] 14 mg/dL 6 - 23 mg/d L [facility] Bacteria identified Cx Nom ( Bld)on 12-11-2024 Interpretation and review of laboratory results Normal [facility] CBC W Auto Differential pane l (Bld)on 12-11-2024 Basophils (Bld) [#/Vol] 0.06 10*3/uL [facility] Basophils/100 WBC (Bld) 0.5 % 0.0 - 2.0 % [facility] Eosinophils (Bld) [#/Vol] 0.43 10*3/uL [facility] Eosinophils/100 WBC (Bld) 3.7 % 0.0 - 6.0 % [facility] Erythrocyte distribution width (RBC) [Ratio] 16.7 % High 11.5 - 14.5 % [facility] Hematocrit (Bld) [Volume fraction] 27.1 % Low 41.0 - 52.0 % [facility] Hemoglobin (Bld) [Mass/Vol] 8.1 g/dL Low 13.5 - 17.5 g/dL [facility] Immature granulocytes (Bld) [#/Vol] 0.05 10*3/uL [facility] Immature granulocytes/100 WBC (Bld) 0.4 % 0.0 - 0.9 % [facility] Interpretation and review of laboratory results Abnormal [facility] Lymphocytes (Bld) [#/Vol] 1.57 10*3/uL [facility] Lymphocytes/100 WBC (Bld) 13.6 % 13.0 - 44.0 % [facility] MCH (RBC) [Entitic mass] 25.5 pg Low 26. 0 - 34.0 pg [facility] MCHC (RBC) [Mass/Vol] 29.9 g/dL Low 32.0 - 36.0 g/dL [facility] MCV (RBC) [Entitic vol] 85 fL 80 - 100 fL [facility] Monocytes (Bld) [#/Vol] 1.8 10*3/uL High [facility] Monocytes/100 WBC (Bld) 15.6 % 2.0 - 10.0 % [facility] Neutrophils (Bld) [#/Vol] 7.64 10*3/uL [facility] Neutrophils/100 WBC (Bld) 66.2 % 40.0 - 80.0 % [facility] Nucleated RBC/100 WBC (Bld) [Ratio] 0 % [facility] Platelets (Bld) [#/Vol] 649 10*3/uL High [facility] RBC (Bld) [#/Vol] 3.18 10*6/uL Low [facility] WBC (Bld) [#/Vol] 11.6 10*3/uL High [facility] Laboratory - Microbiology an d Antimicrobial susceptibilityon 12-11-2024 Bacteria identified Cx Nom (Bld) No growth at 4 days - FINAL REPORT [facility] Magnesiumon 12-11-2024 Magnesium [Mass/Vol] 1.96 mg/dL 1.60 - 2.40 mg/dL [facility] Magnesium [Mass/Vol]on 12-11 Interpretation and review of laboratory results Normal [facility] No Panel Informationon 12-11 [facility] Renal function 2000 panelon 12-11-2024 Albumin BCP dye [Mass/Vol] 2.9 g/dL Low 3.4 - 5.0 g/dL [facility] Anion gap [Moles/Vol] 9 mmol/L Low 10 - 2 0 mmol/L [facility] Calcium [Mass/Vol] 10.4 mg/dL 8.6 - 10. 6 mg/dL [facility] Chloride [Moles/Vol] 101 mmol/L 98 - 10 7 mmol/L [facility] CO2 [Moles/Vol] 29 mmol/L 21 - 32 mmol/L [facility] Creatinine [Mass/Vol] 1.34 mg/dL High 0.50 - 1.30 mg/dL [facility] GFR/1.73 sq M.predicted among non-blacks MDRD (S/P/Bld) [Vol rate/Area] 64 mL/min/{1.73_m2} - PINF [facility] Glucose [Mass/Vol] 99 mg/dL 74 - 99 [facility] Interpretation and review of laboratory results Abnormal [facility] Phosphate [Mass/Vol] 3 mg/dL 2.5 - 4 .9 mg/dL [facility] Potassium [Moles/Vol] 4.3 mmol/L 3.5 - 5.3 mmol/L [facility] Sodium [Moles/Vol] 135 mmol/L Low 136 - 145 mmol/L [facility] Urea nitrogen [Mass/Vol] 13 mg/dL 6 - 23 mg/d L [facility] CBC W Auto Differential pane l (Bld)on 12-10-2024 Basophils (Bld) [#/Vol] 0.07 10*3/uL [facility] Basophils/100 WBC (Bld) 0.6 % 0.0 - 2.0 % [facility] Eosinophils (Bld) [#/Vol] 0.52 10*3/uL [facility] Eosinophils/100 WBC (Bld) 4.5 % 0.0 - 6.0 % [facility] Erythrocyte distribution width (RBC) [Ratio] 16.8 % High 11.5 - 14.5 % [facility] Hematocrit (Bld) [Volume fraction] 26.7 % Low 41.0 - 52.0 % [facility] Hemoglobin (Bld) [Mass/Vol] 8.1 g/dL Low 13.5 - 17.5 g/dL [facility] Immature granulocytes (Bld) [#/Vol] 0.04 10*3/uL [facility] Immature granulocytes/100 WBC (Bld) 0.3 % 0.0 - 0.9 % [facility] Interpretation and review of laboratory results Abnormal [facility] Lymphocytes (Bld) [#/Vol] 1.84 10*3/uL [facility] Lymphocytes/100 WBC (Bld) 16.1 % 13.0 - 44.0 % [facility] MCH (RBC) [Entitic mass] 25.8 pg Low 26. 0 - 34.0 pg [facility] MCHC (RBC) [Mass/Vol] 30.3 g/dL Low 32.0 - 36.0 g/dL [facility] MCV (RBC) [Entitic vol] 85 fL 80 - 100 fL [facility] Monocytes (Bld) [#/Vol] 1.42 10*3/uL High [facility] Monocytes/100 WBC (Bld) 12.4 % 2.0 - 10.0 % [facility] Neutrophils (Bld) [#/Vol] 7.57 10*3/uL [facility] Neutrophils/100 WBC (Bld) 66.1 % 40.0 - 80.0 % [facility] Nucleated RBC/100 WBC (Bld) [Ratio] 0 % [facility] Platelets (Bld) [#/Vol] 663 10*3/uL High [facility] RBC (Bld) [#/Vol] 3.14 10*6/uL Low [facility] WBC (Bld) [#/Vol] 11.5 10*3/uL High [facility] MR Thigh - left WO contrasto n 12-10-2024 Radiology Study observation (narrative) [facility] Work Phone: Magnesiumon 12-10-2024 Magnesium [Mass/Vol] 1.9 mg/dL 1.60 - 2.40 mg/dL [facility] No Panel Informationon 12-10 Interpretation and review of laboratory results Normal [facility] Renal function 2000 panelon 12-10-2024 Albumin BCP dye [Mass/Vol] 3 g/dL Low 3.4 - 5.0 g/dL [facility] Anion gap [Moles/Vol] 12 mmol/L 10 - 2 0 mmol/L [facility] Calcium [Mass/Vol] 10.1 mg/dL 8.6 - 10. 6 mg/dL [facility] Chloride [Moles/Vol] 102 mmol/L 98 - 10 7 mmol/L [facility] CO2 [Moles/Vol] 29 mmol/L 21 - 32 mmol/L [facility] Creatinine [Mass/Vol] 1.28 mg/dL 0.50 - 1.30 mg/dL [facility] GFR/1.73 sq M.predicted among non-blacks MDRD (S/P/Bld) [Vol rate/Area] 68 mL/min/{1.73_m2} - PINF [facility] Glucose [Mass/Vol] 89 mg/dL 74 - 99 mg/dL Uni [facility] Interpretation and review of laboratory results Abnormal [facility] Phosphate [Mass/Vol] 3.5 mg/dL 2.5 - 4 .9 mg/dL [facility] Potassium [Moles/Vol] 4.1 mmol/L 3.5 - 5.3 mmol/L [facility] Sodium [Moles/Vol] 139 mmol/L 136 - 145 mmol/L [facility] Urea nitrogen [Mass/Vol] 11 mg/dL 6 - 23 mg/d L [facility] Vancomycinon 12-10-2024 Vancomycin [Mass/Vol] 10.1 ug/mL 5.0 - 20.0 ug/mL [facility] Vancomycin [Mass/Vol]on 11-17 [facility] Bacteria identified Cx Nom ( Unsp spec)Ordered By: Mari Monique on 12-09-2024 Interpretation and review of laboratory results Abnormal [facility] Microscopic observation Gram stain Nom (Unsp spec) (2+) Few Polymorphonuclear leukocytes Abnormal [facility] Microscopic observation Gram stain Nom (Unsp spec) Positive Abnormal [facility] Blood type and Indirect anti body screen panel (Bld)on 12-09-2024 ABO group Nom (Bld) [facility] screen Ql Negative [facility] D Ag Ql (Bld) Positive [facility] CBC W Auto Differential pane l (Bld)on 12-09-2024 Basophils (Bld) [#/Vol] 0.06 10*3/uL [facility] Basophils/100 WBC (Bld) 0.6 % 0.0 - 2.0 % [facility] Eosinophils (Bld) [#/Vol] 0.49 10*3/uL [facility] Eosinophils/100 WBC (Bld) 4.8 % 0.0 - 6.0 % [facility] Erythrocyte distribution width (RBC) [Ratio] 16.4 % High 11.5 - 14.5 % [facility] Hematocrit (Bld) [Volume fraction] 25.6 % Low 41.0 - 52.0 % [facility] Hemoglobin (Bld) [Mass/Vol] 8.3 g/dL Low 13.5 - 17.5 g/dL [facility] Immature granulocytes (Bld) [#/Vol] 0.16 10*3/uL [facility] Immature granulocytes/100 WBC (Bld) 1.6 % High 0.0 - 0.9 % [facility] Interpretation and review of laboratory results Abnormal [facility] Lymphocytes (Bld) [#/Vol] 1.81 10*3/uL [facility] Lymphocytes/100 WBC (Bld) 17.8 % 13.0 - 44.0 % [facility] MCH (RBC) [Entitic mass] 26.2 pg 26. 0 - 34.0 pg [facility] MCHC (RBC) [Mass/Vol] 32.4 g/dL 32.0 - 36.0 g/dL [facility] MCV (RBC) [Entitic vol] 81 fL 80 - 100 fL [facility] Monocytes (Bld) [#/Vol] 1.04 10*3/uL High [facility] Monocytes/100 WBC (Bld) 10.2 % 2.0 - 10.0 % [facility] Neutrophils (Bld) [#/Vol] 6.63 10*3/uL [facility] Neutrophils/100 WBC (Bld) 65 % 40.0 - 80.0 % [facility] Nucleated RBC/100 WBC (Bld) [Ratio] 0 % [facility] Platelets (Bld) [#/Vol] 650 10*3/uL High [facility] RBC (Bld) [#/Vol] 3.17 10*6/uL Low Unive [facility] WBC (Bld) [#/Vol] 10.2 10*3/uL [facility] Magnesiumon 12-09-2024 Magnesium [Mass/Vol] 1.9 mg/dL 1.60 - 2.40 mg/dL [facility] Magnesium [Mass/Vol]on 12-09 Interpretation and review of laboratory results Normal [facility] No Panel Informationon 12-09 [facility] PT and aPTT panel Coag (PPP) on 12-09-2024 aPTT Coag (PPP) [Time] 26 s [facility] INR Coag (PPP) [Relative time] 1.3 {INR} High 0.9 - 1.1 [facility] Interpretation and review of laboratory results Abnormal [facility] PT Coag (PPP) [Time] 14.3 s [facility] Renal function 2000 panelon 12-09-2024 Albumin BCP dye [Mass/Vol] 3.1 g/dL Low 3.4 - 5.0 g/dL [facility] Anion gap [Moles/Vol] 15 mmol/L 10 - 2 0 mmol/L [facility] Calcium [Mass/Vol] 9.8 mg/dL 8.6 - 10. 6 mg/dL [facility] Chloride [Moles/Vol] 104 mmol/L 98 - 10 7 mmol/L [facility] CO2 [Moles/Vol] 25 mmol/L 21 - 32 mmol/L [facility] Creatinine [Mass/Vol] 1.2 mg/dL 0.50 - 1.30 mg/dL [facility] GFR/1.73 sq M.predicted among non-blacks MDRD (S/P/Bld) [Vol rate/Area] 73 mL/min/{1.73_m2} - PINF [facility] Glucose [Mass/Vol] 92 mg/dL 74 - 99 mg/dL [facility] Interpretation and review of laboratory results Abnormal [facility] Phosphate [Mass/Vol] 3.4 mg/dL 2.5 - 4 .9 mg/dL [facility] Potassium [Moles/Vol] 3.6 mmol/L 3.5 - 5.3 mmol/L [facility] Sodium [Moles/Vol] 140 mmol/L 136 - 145 mmol/L [facility] Urea nitrogen [Mass/Vol] 15 mg/dL 6 - 23 mg/d L [facility] Tissue/Wound Culture/SmearOr dered By: Mari Monique on 12-09-2024 Bacteria identified Cx Nom (Unsp spec) (4+) Abundant Mixed Gram-Positive and Gram-Negative Bacteria [facility] CBC W Auto Differential pane l (Bld)on 12-08-2024 Basophils (Bld) [#/Vol] 0.05 10*3/uL [facility] Basophils/100 WBC (Bld) 0.4 % 0.0 - 2.0 % [facility] Eosinophils (Bld) [#/Vol] 0.55 10*3/uL [facility] Eosinophils/100 WBC (Bld) 4.8 % 0.0 - 6.0 % [facility] Erythrocyte distribution width (RBC) [Ratio] 17 % High 11.5 - 14.5 % [facility] Hematocrit (Bld) [Volume fraction] 26.1 % Low 41.0 - 52.0 % [facility] Hemoglobin (Bld) [Mass/Vol] 7.8 g/dL Low 13.5 - 17.5 g/dL [facility] Immature granulocytes (Bld) [#/Vol] 0.05 10*3/uL [facility] Immature granulocytes/100 WBC (Bld) 0.4 % 0.0 - 0.9 % [facility] Interpretation and review of laboratory results Abnormal [facility] Lymphocytes (Bld) [#/Vol] 1.34 10*3/uL [facility] Lymphocytes/100 WBC (Bld) 11.7 % 13.0 - 44.0 % [facility] MCH (RBC) [Entitic mass] 25.3 pg Low 26. 0 - 34.0 pg [facility] MCHC (RBC) [Mass/Vol] 29.9 g/dL Low 32.0 - 36.0 g/dL [facility] MCV (RBC) [Entitic vol] 85 fL 80 - 100 fL [facility] Monocytes (Bld) [#/Vol] 1.36 10*3/uL High [facility] Monocytes/100 WBC (Bld) 11.9 % 2.0 - 10.0 % [facility] Neutrophils (Bld) [#/Vol] 8.1 10*3/uL High [facility] Neutrophils/100 WBC (Bld) 70.8 % 40.0 - 80.0 % [facility] Nucleated RBC/100 WBC (Bld) [Ratio] 0 % [facility] Platelets (Bld) [#/Vol] 595 10*3/uL High [facility] RBC (Bld) [#/Vol] 3.08 10*6/uL Low Unive [facility] WBC (Bld) [#/Vol] 11.5 10*3/uL High [facility] Comprehensive metabolic 2000 panelon 12-08-2024 Albumin BCP dye [Mass/Vol] 2.9 g/dL Low 3.4 - 5.0 g/dL [facility] ALP [Catalytic activity/Vol] 48 U/L 33 - 120 U/L [facility] ALT With P-5'-P [Catalytic activity/Vol] 6 U/L Low 10 - 52 U/L [facility] Anion gap [Moles/Vol] 12 mmol/L 10 - 2 0 mmol/L [facility] AST With P-5'-P [Catalytic activity/Vol] 6 U/L Low 9 - 39 U/L [facility] Bilirubin [Mass/Vol] 0.3 mg/dL 0.0 - 1 .2 mg/dL [facility] Calcium [Mass/Vol] 9.4 mg/dL 8.6 - 10. 6 mg/dL [facility] Chloride [Moles/Vol] 106 mmol/L 98 - 10 7 mmol/L [facility] CO2 [Moles/Vol] 26 mmol/L 21 - 32 mmol/L [facility] Creatinine [Mass/Vol] 1.33 mg/dL High 0.50 - 1.30 mg/dL [facility] GFR/1.73 sq M.predicted among non-blacks MDRD (S/P/Bld) [Vol rate/Area] 65 mL/min/{1.73_m2} - PINF [facility] Glucose [Mass/Vol] 112 mg/dL High 74 - 99 mg/dL [facility] Interpretation and review of laboratory results Abnormal [facility] Potassium [Moles/Vol] 3.8 mmol/L 3.5 - 5.3 mmol/L [facility] Protein [Mass/Vol] 6.5 g/dL 6.4 - 8.2 g/dL [facility] Sodium [Moles/Vol] 140 mmol/L 136 - 145 mmol/L [facility] Urea nitrogen [Mass/Vol] 17 mg/dL 6 - 23 mg/d L [facility] No Panel Informationon 12-08 [facility] Vancomycinon 12-08-2024 Vancomycin [Mass/Vol] 16.6 ug/mL 5.0 - 20.0 ug/mL [facility] Vancomycin [Mass/Vol]on 11-17 Interpretation and review of laboratory results Normal [facility] C-reactive proteinon 025 CRP [Mass/Vol] 10.84 mg/dL High NINF - 1.00 mg/dL [facility] CBC W Auto Differential pane l (Bld)on 12-07-2024 Basophils (Bld) [#/Vol] 0 10*3/uL 0.0 - 0.2 10*3/uL [facility] Basophils/100 WBC (Bld) 0.3 % 0.0 - 2.0 % [facility] Eosinophils (Bld) [#/Vol] 0.4 10*3/uL 0.0 - 0.5 10*3/uL [facility] Eosinophils/100 WBC (Bld) 3.3 % 0.0 - 6.0 % [facility] Erythrocyte distribution width (RBC) [Ratio] 16.6 % High 11.5 - 15.0 % [facility] Hematocrit (Bld) [Volume fraction] 26.4 % Low 40.0 - 52.0 % [facility] Hemoglobin (Bld) [Mass/Vol] 8.4 g/dL Low 13.0 - 18.0 g/dL [facility] Immature granulocytes (Bld) [#/Vol] 0 10*3/uL NINF - 0.1 10*3/uL [facility] Immature granulocytes/100 WBC (Bld) 0.3 % 0.0 - 2.0 % [facility] Interpretation and review of laboratory results Abnormal [facility] Lymphocytes (Bld) [#/Vol] 1.7 10*3/uL 1.0 - 4.3 10*3/uL [facility] Lymphocytes/100 WBC (Bld) 13.9 % Low 15.0 - 45.0 % [facility] MCH (RBC) [Entitic mass] 25.7 pg Low 26. 0 - 34.0 pg [facility] MCHC (RBC) [Mass/Vol] 31.8 % 30.5 - 36.0 % [facility] MCV (RBC) [Entitic vol] 80.7 fL 77.0 - 99.0 fL [facility] Monocytes (Bld) [#/Vol] 1.4 10*3/uL High 0.0 - 0.9 10*3/uL [facility] Monocytes/100 WBC (Bld) 11.3 % 5.0 - 13.0 % [facility] Neutrophils (Bld) [#/Vol] 8.5 10*3/uL High 1.8 - 7.5 10*3/uL [facility] Neutrophils/100 WBC (Bld) 70.9 % 38.0 - 82.0 % [facility] Nucleated RBC/100 WBC (Bld) [Ratio] 0 % [facility] Platelet mean volume (Bld) [Entitic vol] 8.5 fL Low 9.0 - 12.7 fL [facility] Platelets (Bld) [#/Vol] 609 10*3/uL High 140 - 440 10*3/uL [facility] RBC (Bld) [#/Vol] 3.27 10*6/uL Low 4.40 - 5.9 0 10*6/uL [facility] WBC (Bld) [#/Vol] 12 10*3/uL High 3.6 - 10.7 10*3/uL [facility] CBC WITH AUTO DIFFERENTIALon 12-07-2024 Basophils (Bld) [#/Vol] 0.0 10*3/uL Normal 0.0-0.2 [facility] Comment on above: Performed By: #### L [id number] ####[employer] Manager: JAZLYN JIMENEZ ([phone])[facility])[address] [place] [address] Basophils/100 WBC (Bld) 0.3 % Normal 0.0-2.0 [facility] Comment on above: Performed By: #### L [id number] ####[employer] Manager: JAZLYN JIMENEZ ([phone])[facility])[address] [place] [address] Eosinophils (Bld) [#/Vol] 0.4 10*3/uL Normal 0.0-0.5 [facility] Comment on above: Performed By: #### L [id number] ####[employer] Manager: JAZLYN JIMENEZ ([phone])[facility])[address] [place] [address] Eosinophils/100 WBC (Bld) 3.3 % Normal 0.0-6.0 [facility] Comment on above: Performed By: #### L [id number] ####[employer] Manager: JAZLYN JIMENEZ ([phone])[facility])[address] [place] [address] [place] Erythrocyte distribution width (RBC) [Ratio] 16.6 % High 11.5-15.0 [facility] Comment on above: Performed By: #### L [id number] ####[employer] Manager: JAZLYN JIMENEZ ([phone])[facility])[address] [place] [address] Hematocrit (Bld) [Volume fraction] 26.4 % Low 40.0-52.0 [facility] Comment on above: Performed By: #### L [id number] ####[employer] Manager: JAZLYN JIMENEZ ([phone])[facility])[address] [place] [address] Hemoglobin (Bld) [Mass/Vol] 8.4 g/dL Low 13.0-18.0 [facility] Comment on above: Performed By: #### L [id number] ####[employer] Manager: JAZLYN JIMENEZ ([phone])[facility])[address] [place] [address] IMMATURE GRANS % 0.3 % Normal 0.0-2.0 [facility] Comment on above: Performed By: #### L [id number] ####[employer] Manager: JAZLYN JIMENEZ ([phone])[facility])[address] [place] [address] IMMATURE GRANS ABSOLUTE 0.0 10*3/uL Normal <0.1 [facility] Comment on above: Performed By: #### L [id number] ####[employer] Manager: JAZLYN JIMENEZ ([phone])[facility])[address] [place] [address] Lymphocytes (Bld) [#/Vol] 1.7 10*3/uL Normal 1.0-4.3 [facility] Comment on above: Performed By: #### L [id number] ####[employer] Manager: JAZLYN JIMENEZ ([phone])[facility])[address] [place] [address] Lymphocytes/100 WBC (Bld) 13.9 % Low 15.0-45.0 [facility] Comment on above: Performed By: #### L [id number] ####[employer]ental [employer] Manager: JAZLYN [id number])[facility] ([facility])[address] [place] [address] MCH (RBC) [Entitic mass] 25.7 pg Low 26.0-34.0 [facility] Comment on above: Performed By: #### L [id number] ####[employer] Manager: JAZLYN JIMENEZ ([phone])[facility])[address] [place] [address] MCHC 31.8 % Normal 30.5-36.0 [facility] Comment on above: Performed By: #### L [id number] ####[employer] Manager: JAZLYN JIMENEZ ([phone])[facility])[address] [place] [address] MCV (RBC) [Entitic vol] 80.7 fL Normal 77.0-99.0 [facility] Comment on above: Performed By: #### L [id number] ####[employer] Manager: JAZLYN JIMENEZ ([phone])[facility] ([facility])[address] [place] [address] Monocytes (Bld) [#/Vol] 1.4 10*3/uL High 0.0-0.9 [facility] Comment on above: Performed By: #### L [id number] ####[employer] Manager: JAZLYN JIMENEZ ([phone])[facility])[address] [place] [address] Monocytes/100 WBC (Bld) 11.3 % Normal 5.0-13.0 [facility] Comment on above: Performed By: #### L [id number] ####[employer] Manager: JAZLYN JIMENEZ ([phone])[facility])[address] [place] [address] NEUTROPHILS ABSOLUTE 8.5 10*3/uL High 1.8-7.5 [facility] Comment on above: Performed By: #### L [id number] ####[employer] Manager: JAZLYN JIMENEZ ([phone])[facility])[address] [place] [address] Neutrophils/100 WBC (Bld) 70.9 % Normal 38.0-82.0 [facility] Comment on above: Performed By: #### L [id number] ####[employer] Manager: JAZLYN JIMENEZ ([phone])[facility] ([facility])[address] [place] [address] NRBC 0.0 /100 WBCs Normal 0.0-2.0 [facility] Comment on above: Performed By: #### L [id number] ####[employer] Manager: JAZLYN JIMENEZ ([phone])[facility] ([facility])[address] [place] [address] Platelet mean volume (Bld) [Entitic vol] 8.5 fL Low 9.0-12.7 [facility] Comment on above: Performed By: #### L [id number] ####[employer] Manager: JAZLYN JIMENEZ ([phone])[facility] ([facility])[address] [place] [address] Platelets (Bld) [#/Vol] 609 10*3/uL High 140-440 [facility] Comment on above: Performed By: #### L [id number] ####[employer] Manager: JAZLYN JIMENEZ ([phone])[facility] ([facility])[address] [place] [address] RBC (Bld) [#/Vol] 3.27 10*6/uL Low 4.40-5.90 [facility] Comment on above: Performed By: #### L [id number] ####[employer] Manager: JAZLYN JIMENEZ ([phone])[facility] ([facility])[address] [place] [address] WBC (Bld) [#/Vol] 12.0 10*3/uL High 3.6-10.7 [facility] Comment on above: Performed By: #### L [id number] ####[employer] Manager: JAZLYN JIMENEZ ([phone])[facility] ([facility])[address] [place] [address] CBC panel Auto (Bld)on 12-07 Erythrocyte distribution width (RBC) [Ratio] 16.8 % High 11.5 - 14.5 % [facility] Hematocrit (Bld) [Volume fraction] 26.5 % Low 41.0 - 52.0 % [facility] Hemoglobin (Bld) [Mass/Vol] 8 g/dL Low 13.5 - 17.5 g/dL [facility] Interpretation and review of laboratory results Abnormal [facility] MCH (RBC) [Entitic mass] 25.4 pg Low 26. 0 - 34.0 pg [facility] MCHC (RBC) [Mass/Vol] 30.2 g/dL Low 32.0 - 36.0 g/dL [facility] MCV (RBC) [Entitic vol] 84 fL 80 - 100 fL [facility] Nucleated RBC/100 WBC (Bld) [Ratio] 0 % [facility] Platelets (Bld) [#/Vol] 645 10*3/uL High [facility] RBC (Bld) [#/Vol] 3.15 10*6/uL Low [facility] WBC (Bld) [#/Vol] 12 10*3/uL High [facility] COMPREHENSIVE METABOLIC PANE Yuriy 12-07-2024 Albumin [Mass/Vol] 2.5 g/dL Low 3.5-5.0 [facility] Comment on above: Performed By: #### L [id number], [id number], LAB17 ####[employer]ental [employer] Manager: JAZLYN JIMENEZ ([phone])[facility] ([address] ALP [Catalytic activity/Vol] 57 U/L Normal 40-150 [facility] Comment on above: Performed By: #### L [id number], [id number], LAB17 ####[employer] Manager: JAZLYN JIMENEZ ([phone])[facility] ([address] ALT [Catalytic activity/Vol] U/L Normal <40 [facility] Comment on above: Performed By: #### L [id number], [id number], LAB17 ####[employer]ental [employer] Manager: JAZLYN JIMENEZ ([phone])[facility] [place] [address] Anion gap [Moles/Vol] 7 mmol/L Normal 3-13 [facility] Comment on above: Performed By: #### Kamila [id number], [id number], LAB17 ####[employer]ental [employer] Manager: JAZLYN JIMENEZ ([phone])[facility] ([facility])[address] [place] [address] AST [Catalytic activity/Vol] 10 U/L Normal <34 [facility] Comment on above: Performed By: #### Kamila [id number], [id number], LAB17 ####[employer] Manager: JAZLYN JIMENEZ ([phone])[facility] ([facility])[address] [place] [address] Bilirubin [Mass/Vol] 0.3 mg/dL Normal <1.2 [facility] Comment on above: Performed By: #### Kamila LOUISE, [id number], [id number] ####[employer] Manager: JAZLYN JIMENEZ ([phone])[facility] ([facility])[address] [place] [address] Calcium [Mass/Vol] 9.4 mg/dL Normal 8.4-10.2 [facility] Comment on above: Performed By: #### Kamila ABRanda, [id number], LAB17 ####[employer] Manager: JAZLYN JIMENEZ ([phone])[facility] ([facility])[address] [place] [address] [place] Chloride [Moles/Vol] 113 mmol/L High 98-107 [facility] Comment on above: Performed By: #### Kamila [id number], [id number], LAB17 ####[employer] Manager: JAZLYN JIMENEZ ([phone])[facility] ([facility])[address] [place] [address] [place] CO2 [Moles/Vol] 21 mmol/L Low 22-29 [facility] Comment on above: Performed By: #### L [id number], [id number], LAB17 ####[employer]ental [employer] Manager: JAZLYN JIMENEZ ([phone])[facility] ([facility])[address] [place] [address] [place] Creatinine [Mass/Vol] 1.17 mg/dL Normal 0.72-1.25 [facility] Comment on above: Performed By: #### Kamila LOUISE, [id number], LAB17 ####[employer]ental [employer] Manager: JAZLYN JIMENEZ ([phone])[facility])[address] [place] [address] [place] GLOMERULAR FILTRATION RATE ML/MIN/1.73 SQ M.PREDICTED 75.5 mL/min/1.73m*2 Normal >60.0 [facility] Comment on above: Result Comment: Calc ulation based on the Chronic Kidney Disease Epidemiology Collaboration (CKD-EPI) equation refit without adjustment for race Performed By: #### Kamila LOUISE, [id number], LAB17 ####[employer]ental [employer] Manager: JAZLYN JIMENEZ ([phone])[facility])[address] [place] [address] Glucose [Mass/Vol] 96 mg/dL Normal 74-100 [facility] Comment on above: Performed By: #### Kamila LOUISE, [id number], LAB17 ####[employer] Manager: JAZLYN JIMENEZ ([phone])[address] Potassium [Moles/Vol] 3.9 mmol/L Normal 3.5-5.1 [facility] Comment on above: Result Comment: [facility] potassium values may be up to 0.5 mmol/L lower than serum values. Performed By: #### Kamila LOUISE, [id number], LAB17 ####[employer]ental [employer] Manager: JAZLYN JIMENEZ ([phone])[facility])[address] [place] [address] Protein [Mass/Vol] 6.6 g/dL Normal 6.4-8.3 [facility] Comment on above: Performed By: #### Kamila LOUISE, [id number], LAB17 ####[employer] Manager: JAZLYN JIMENEZ ([phone])[facility])[address] [place] [address] Sodium [Moles/Vol] 141 mmol/L Normal 136-145 [facility] Comment on above: Performed By: #### L [id number], [id number], LAB17 ####[employer] Manager: JAZLYN JIMENEZ ([phone])[facility] [place] [address] Urea nitrogen [Mass/Vol] 14 mg/dL Normal 9- [facility] Comment on above: Performed By: #### L [id number], [id number], LAB17 ####[employer] Manager: JAZLYN JIMENEZ ([phone])[facility] [place] [address] Comprehensive metabolic 1998 panelon 12-07-2024 Albumin [Mass/Vol] 2.5 g/dL Low 3.5 - 5.0 g/dL [facility] ALP [Catalytic activity/Vol] 57 U/L 40 - 150 U/L [facility] ALT [Catalytic activity/Vol] U/L NINF - 40 U/L [facility] Anion gap [Moles/Vol] 7 mmol/L 3 - 13 mmol/L [facility] AST [Catalytic activity/Vol] 10 U/L NINF - 34 U/L [facility] Bilirubin [Mass/Vol] 0.3 mg/dL NINF - 1.2 mg/dL [facility] Calcium [Mass/Vol] 9.4 mg/dL 8.4 - 10. 2 mg/dL [facility] Chloride [Moles/Vol] 113 mmol/L High 98 - 10 7 mmol/L [facility] CO2 [Moles/Vol] 21 mmol/L Low 22 - 29 mmol/L [facility] Creatinine [Mass/Vol] 1.17 mg/dL 0.72 - 1.25 mg/dL [facility] GFR/1.73 sq M.predicted (S/P/Bld) [Vol rate/Area] 75.5 mL/min - PINF [facility] Comment on above: Calculation based on the Chronic Kidney Disease Epidemiology Collaboration (CKD-EPI) equation refit without adjustment for race Glucose [Mass/Vol] 96 mg/dL 74 - 100 mg/dL [facility] Interpretation and review of laboratory results Abnormal [facility] Potassium [Moles/Vol] 3.9 mmol/L 3.5 - 5.1 mmol/L [facility] Comment on above: Plasma potassium jeri ues may be up to 0.5 mmol/L lower than serum values. Protein [Mass/Vol] 6.6 g/dL 6.4 - 8.3 g/dL [facility] Sodium [Moles/Vol] 141 mmol/L 136 - 145 mmol/L [facility] Urea nitrogen [Mass/Vol] 14 mg/dL 9 - 23 mg/d L [facility] Comprehensive metabolic 2000 panelon 12-07-2024 Albumin BCP dye [Mass/Vol] 3.1 g/dL Low 3.4 - 5.0 g/dL [facility] ALP [Catalytic activity/Vol] 53 U/L 33 - 120 U/L [facility] ALT With P-5'-P [Catalytic activity/Vol] 7 U/L Low 10 - 52 U/L [facility] Anion gap [Moles/Vol] 13 mmol/L 10 - 2 0 mmol/L [facility] AST With P-5'-P [Catalytic activity/Vol] 8 U/L Low 9 - 39 U/L [facility] Bilirubin [Mass/Vol] 0.4 mg/dL 0.0 - 1 .2 mg/dL [facility] Calcium [Mass/Vol] 9.6 mg/dL 8.6 - 10. 6 mg/dL [facility] Chloride [Moles/Vol] 109 mmol/L High 98 - 10 7 mmol/L [facility] CO2 [Moles/Vol] 22 mmol/L 21 - 32 mmol/L [facility] Creatinine [Mass/Vol] 1.32 mg/dL High 0.50 - 1.30 mg/dL [facility] GFR/1.73 sq M.predicted among non-blacks MDRD (S/P/Bld) [Vol rate/Area] 65 mL/min/{1.73_m2} - PINF [facility] Glucose [Mass/Vol] 91 mg/dL 74 - 99 mg/dL [facility] Potassium [Moles/Vol] 3.9 mmol/L 3.5 - 5.3 mmol/L [facility] Protein [Mass/Vol] 6.7 g/dL 6.4 - 8.2 g/dL [facility] Sodium [Moles/Vol] 140 mmol/L 136 - 145 mmol/L [facility] Urea nitrogen [Mass/Vol] 16 mg/dL 6 - 23 mg/d L [facility] Consulton 12-07-2024 Consult Pharmacy Managed [...] creatinine, and vancomycin levels interfaced automatically to [employer] and data has been analyzed and interpreted. [...] RPh Clinical Pharmacist Available via Secure Chat [facility] ED Nursing Noteon 12-07-2024 ED Nursing Note Report to AMAN Galindo. Normal [facility] ED Nursing Note Patient provided urinal per request. Respirations even and unlabored. No acute distress noted. Normal [facility] ED Nursing Note Report from AMAN Galindo. Normal [facility] ED Nursing Note Report to Josie/AMAN and patient moved to room 9 with all belongings and breakfast tray Normal [facility] ED Nursing Note Patient moving from 43 to 9 now Normal [facility] ED Nursing Note RN/Margarita ordered breakfast for the patient per his preference Normal [facility] ED Nursing Note Requested pharmacy to retime Vanc due to 3 hour administration of Zosyn (& both ordered at same time) Normal [facility] ED Nursing Note Patient actively vomiting - provider notified Normal [facility] ED Nursing Note Report given to AMAN Sutton Normal [facility] ESR Westergren method (Bld) [Velocity]on 12-07-2024 ESR (Bld) [Velocity] 102 mm/h High 0 - 20 mm/h [facility] Interpretation and review of laboratory results Abnormal [facility] Laboratory - Chemistry and C hemistry - challengeon 12-07-2024 Magnesium [Mass/Vol] 1.8 mg/dL 1.6 - 2 .6 mg/dL [facility] MAGNESIUMon 12-07-2024 Magnesium [Mass/Vol] 1.8 mg/dL Normal 1.6-2.6 [facility] Comment on above: Result Comment: MAYRA Dhillon COMMENTS: Higher values can be expected in females during menses. Performed By: #### L [id number], [id number], [id number] ####[employer]ental [employer] Manager: JAZLYN JIMENEZ ([phone])[facility] ([facility])[address] [place] [address] Magnesiumon 12-07-2024 Magnesium [Mass/Vol] 1.86 mg/dL 1.60 - 2.40 mg/dL [facility] Magnesium [Mass/Vol]on 12-07 Interpretation and review of laboratory results Normal [facility] Higher values can be expected in females during menses. [facility] No Panel Informationon 12-07 Interpretation and review of laboratory results Abnormal [facility] Interpretation and review of laboratory results Normal [facility] Nursing Noteon 12-07-2024 Nursing Note 1516 called report to ambulance is here to pick patient up Normal [facility] PHOSPHORUSon 12-07-2024 Phosphate [Mass/Vol] 2.5 mg/dL Normal 2.3-4.7 [facility] Comment on above: Performed By: #### L AB103, [id number], LAB17 ####[employer] Rental Agency Manager: JAZLYN JIMENEZ ([phone])[facility] ([facility])[address] [place] [address] [place] Phosphate [Moles/Vol]on 11-17 Phosphate [Mass/Vol] 2.5 mg/dL 2.3 - 4 .7 mg/dL [facility] Progress Noteon 12-07-2024 Progress Note Physician Response Please review the following and provide your response below. Please clarify which of the following accurately describes the patient's CKD Stage: CKD Stage 2 (GFR 60-89) This documentation will become part of the patient's medical record. Normal [facility] BLOOD CULTUREon 12-06-2024 Bacteria identified Cx Nom (Bld) BLOOD CULTURE Reference No growth at 5 days ORDER COMMENTS: Blood Collection Site: Right Forearm [ S = SUSCEPTIBLE R = RESISTANT I = INTERMEDIATE S-DD = Susceptible-dose dependent NS = Non-susceptible NO = No Interpretation ] [facility] Comment on above: Performed By: #### L [id number], [id number] #### [employer] Rental Agency Manager: JAZLYN JIMENEZ ([phone]) [facility] ([facility]) [address] [place] [address] [place] Bacteria identified Cx Nom (Bld) BLOOD CULTURE Reference No growth at 5 days ORDER COMMENTS: Blood Collection Site: Right Antecubital [ S = SUSCEPTIBLE R = RESISTANT I = INTERMEDIATE S-DD = Susceptible-dose dependent NS = Non-susceptible NO = No Interpretation ] Normal [facility] Comment on above: Performed By: #### L [id number], [id number] #### [employer]ental Agency Manager: JAZLYN JIMENEZ ([phone]) [facility] ([facility]) [address] [place] [address] [place] C-REACTIVE PROTEINon 025 CRP [Mass/Vol] 95.9 mg/L High <5.0 [facility] th System [facility] Comment on above: Performed By: #### L AB17, [id number] ####[employer]ental [employer] Manager: JAZLYN JIMENEZ ([phone])[facility] ([facility])[address] [place] [address] CBC W Auto Differential pane l (Bld)on 12-06-2024 Basophils (Bld) [#/Vol] 0 10*3/uL 0.0 - 0.2 10*3/uL [facility] Basophils/100 WBC (Bld) 0.3 % 0.0 - 2.0 % [facility] Eosinophils (Bld) [#/Vol] 0.3 10*3/uL 0.0 - 0.5 10*3/uL [facility] Eosinophils/100 WBC (Bld) 2.4 % 0.0 - 6.0 % [facility] Erythrocyte distribution width (RBC) [Ratio] 16.9 % High 11.5 - 15.0 % [facility] Hematocrit (Bld) [Volume fraction] 28.6 % Low 40.0 - 52.0 % [facility] Hemoglobin (Bld) [Mass/Vol] 9 g/dL Low 13.0 - 18.0 g/dL [facility] Immature granulocytes (Bld) [#/Vol] 0 10*3/uL NINF - 0.1 10*3/uL [facility] Immature granulocytes/100 WBC (Bld) 0.3 % 0.0 - 2.0 % [facility] Interpretation and review of laboratory results Abnormal [facility] Lymphocytes (Bld) [#/Vol] 1.5 10*3/uL 1.0 - 4.3 10*3/uL [facility] Lymphocytes/100 WBC (Bld) 11.4 % Low 15.0 - 45.0 % [facility] MCH (RBC) [Entitic mass] 25.7 pg Low 26. 0 - 34.0 pg [facility] MCHC (RBC) [Mass/Vol] 31.5 % 30.5 - 36.0 % [facility] MCV (RBC) [Entitic vol] 81.7 fL 77.0 - 99.0 fL [facility] Monocytes (Bld) [#/Vol] 1.1 10*3/uL High 0.0 - 0.9 10*3/uL [facility] Monocytes/100 WBC (Bld) 8.6 % 5.0 - 13.0 % [facility] Neutrophils (Bld) [#/Vol] 10 10*3/uL High 1.8 - 7.5 10*3/uL [facility] Neutrophils/100 WBC (Bld) 77 % 38.0 - 82.0 % [facility] Nucleated RBC/100 WBC (Bld) [Ratio] 0 % [facility] Platelet mean volume (Bld) [Entitic vol] 8.8 fL Low 9.0 - 12.7 fL [facility] Platelets (Bld) [#/Vol] 681 10*3/uL High 140 - 440 10*3/uL [facility] RBC (Bld) [#/Vol] 3.5 10*6/uL Low 4.40 - 5.9 0 10*6/uL [facility] WBC (Bld) [#/Vol] 13 10*3/uL High 3.6 - 10.7 10*3/uL [facility] CBC WITH AUTO DIFFERENTIALon 12-06-2024 Basophils (Bld) [#/Vol] 0.0 10*3/uL Normal 0.0-0.2 [facility] Comment on above: Performed By: #### Kamila [id number], [id number] ####[employer]ental [employer] Manager: JAZLYN JIMENEZ ([phone])[address] Basophils/100 WBC (Bld) 0.3 % Normal 0.0-2.0 [facility] Comment on above: Performed By: #### Kamila [id number], [id number] ####[employer] Manager: JAZLYN [phone])[address] Eosinophils (Bld) [#/Vol] 0.3 10*3/uL Normal 0.0-0.5 [facility] Comment on above: Performed By: #### Kamila [id number], [id number] ####[employer]ental [employer] Manager: JAZLYN [phone])[facility] [address] Eosinophils/100 WBC (Bld) 2.4 % Normal 0.0-6.0 [facility] Comment on above: Performed By: #### Kamila [id number], [id number] ####[employer] Rental Agency Manager: JAZLYN JIMENEZ ([phone])[facility])[address] [place] [address] Erythrocyte distribution width (RBC) [Ratio] 16.9 % High 11.5-15.0 [facility] Comment on above: Performed By: #### Kamila KELSEY, [id number] ####[employer] Manager: JAZLYN JIMENEZ ([phone])[address] Hematocrit (Bld) [Volume fraction] 28.6 % Low 40.0-52.0 [facility] Comment on above: Performed By: #### Kamila KELSEY, [id number] ####[employer]ental [employer] Manager: JAZLYN JIMENEZ ([phone])[facility])[address] [place] [address] Hemoglobin (Bld) [Mass/Vol] 9.0 g/dL Low 13.0-18.0 [facility] Comment on above: Performed By: #### Kamila DK8631, [id number] ####[employer] Manager: JAZLYN JIMENEZ ([phone])[address] IMMATURE GRANS % 0.3 % Normal 0.0-2.0 [facility] Comment on above: Performed By: #### Kamila [id number], [id number] ####[employer] Manager: JAZLYN JIMENEZ ([phone])[address] IMMATURE GRANS ABSOLUTE 0.0 10*3/uL Normal <0.1 [facility] Comment on above: Performed By: #### Kamila PV5628, [id number] ####[employer] Manager: JAZLYN [phone])[address] Lymphocytes (Bld) [#/Vol] 1.5 10*3/uL Normal 1.0-4.3 [facility] Comment on above: Performed By: #### Kamila [id number], [id number] ####[employer]ental [employer] Manager: JAZLYN JIMENEZ ([phone])[facility])[address] [place] [address] Lymphocytes/100 WBC (Bld) 11.4 % Low 15.0-45.0 [facility] Comment on above: Performed By: #### L [id number], [id number] ####[employer] Manager: JAZLYN JIMENEZ ([phone])[facility])[address] [place] [address] MCH (RBC) [Entitic mass] 25.7 pg Low 26.0-34.0 [facility] Comment on above: Performed By: #### Kamila BS1509, [id number] ####[employer] Rental Agency Manager: JAZLYN JIMENEZ ([phone])[facility])[address] [place] [address] MCHC 31.5 % Normal 30.5-36.0 [facility] Comment on above: Performed By: #### Kamila FV5578, [id number] ####[employer] Rental Agency Manager: JAZLYN JIMENEZ ([phone])[facility])[address] [place] [address] MCV (RBC) [Entitic vol] 81.7 fL Normal 77.0-99.0 [facility] Comment on above: Performed By: #### L [id number], [id number] ####[employer]ental [employer] Manager: JAZLYN JIMENEZ ([phone])[facility])[address] [place] [address] Monocytes (Bld) [#/Vol] 1.1 10*3/uL High 0.0-0.9 [facility] Comment on above: Performed By: #### L IT5680, [id number] ####[employer] Rental Agency Manager: JAZLYN JIMENEZ ([phone])[facility])[address] [place] [address] Monocytes/100 WBC (Bld) 8.6 % Normal 5.0-13.0 [facility] Comment on above: Performed By: #### Kamila BY1443, [id number] ####[employer] Rental Agency Manager: JAZLYN JIMENEZ ([phone])[facility] ([facility])[address] [place] [address] NEUTROPHILS ABSOLUTE 10.0 10*3/uL High 1.8-7.5 [facility] Comment on above: Performed By: #### Kamila HB2204, OHV601 ####[employer] Rental Agency Manager: JAZLYN JIMENEZ ([phone])[facility] ([facility])[address] [place] [address] Neutrophils/100 WBC (Bld) 77.0 % Normal 38.0-82.0 [facility] Comment on above: Performed By: #### Kamila SS8758, [id number] ####[employer] Rental Agency Manager: JAZLYN JIMENEZ ([phone])[facility] ([facility])[address] [place] [address] NRBC 0.0 /100 WBCs Normal 0.0-2.0 [facility] Comment on above: Performed By: #### Kamila HG6850, [id number] ####[employer] Rental Agency Manager: JAZLYN JIMENEZ ([phone])[facility] ([facility])[address] [place] [address] Platelet mean volume (Bld) [Entitic vol] 8.8 fL Low 9.0-12.7 [facility] Comment on above: Performed By: #### Kamila RL4788, [id number] ####[employer] Rental Agency Manager: JAZLYN JIMENEZ ([phone])[facility] ([facility])[address] [place] [address] [place] Platelets (Bld) [#/Vol] 681 10*3/uL High 140-440 [facility] Comment on above: Performed By: #### L [id number], [id number] ####[employer] Rental Agency Manager: JAZLYN JIMENEZ ([phone])[facility] ([facility])[address] [place] [address] [place] RBC (Bld) [#/Vol] 3.50 10*6/uL Low 4.40-5.90 [facility] Comment on above: Performed By: #### L [id number], [id number] ####[employer] Rental Agency Manager: JAZLYN JIMENEZ ([phone])[facility] ([facility])[address] [place] [address] WBC (Bld) [#/Vol] 13.0 10*3/uL High 3.6-10.7 [facility] Comment on above: Performed By: #### L [id number], [id number] ####[employer] Rental Agency Manager: JAZLYN JIMENEZ ([phone])[facility])[address] [place] [address] COMPLETE URINALYSISon 2024 BILIRUBIN, TOTAL PRESENCE IN URINE Negative Normal Negative [facility] Comment on above: Performed By: #### L [id number] ####[employer] Rental Agency Manager: JAZLYN JIMENEZ ([phone])[facility] ([facility])[address] [place] [address] Clarity (U) Clear Normal Clear [facility] Comment on above: Performed By: #### L [id number] ####[employer] Rental Agency Manager: JAZLYN JIMENEZ ([phone])[facility])[address] [place] [address] Color (U) Light Yellow Normal Lt. Yellow [facility] Comment on above: Performed By: #### L [id number] ####[employer] Rental Agency Manager: JAZLYN JIMENEZ ([phone])[facility])[address] [place] [address] GLUCOSE (MG/DL) IN URINE Normal Normal Normal (<70 ) [facility] Comment on above: Performed By: #### L [id number] ####[employer] Rental Agency Manager: JAZLYN JIMENEZ ([phone])[facility])[address] [place] [address] HEMOGLOBIN PRESENCE IN URINE Negative Normal Negative [facility] Comment on above: Performed By: #### L [id number] ####[employer] Rental Agency Manager: JAZLYN [phone])[facility] [place] [address] Ketones Ql (U) Negative Normal Negative [facility] Comment on above: Performed By: #### L [id number] ####[employer] Rental Agency Manager: JAZLYN JIMENEZ ([phone])[facility] ([facility])[address] [place] [address] LEUKOCYTE ESTERASE PRESENCE IN URINE BY TEST STRIP Negative Normal Negative [facility] Comment on above: Performed By: #### L [id number] ####[employer] Rental Agency Manager: JAZLYN JIMENEZ ([phone])[facility] ([facility])[address] [place] [address] NITRITE PRESENCE IN URINE Negative Normal Negative [facility] Comment on above: Performed By: #### L [id number] ####[employer] Rental Agency Manager: JAZLYN JIMENEZ ([phone])[facility] ([facility])[address] [place] [address] pH (U) 5.5 [pH] Normal 5.0-8.0 [facility] Comment on above: Performed By: #### L [id number] ####[employer] Rental Agency Manager: JAZLYN JIMENEZ ([phone])[facility] ([facility])[address] [place] [address] Protein (U) [Mass/Vol] Negative Normal Negative [facility] Comment on above: Performed By: #### L [id number] ####[employer] Rental Agency Manager: JAZLYN JIMENEZ ([phone])[facility])[address] [place] [address] Specific gravity (U) [Rel density] 1.016 Normal 1.005-1.030 [facility] Comment on above: Performed By: #### L [id number] ####[employer] Rental Agency Manager: JAZLYN JIMENEZ ([phone])[facility])[address] [place] [address] UROBILINOGEN (MG/DL) IN URINE Normal Normal Normal (0-1) [facility] Comment on above: Performed By: #### L [id number] ####[employer] Rental Agency Manager: JAZLYN JIMENEZ ([phone])[facility] [place] [address] COMPREHENSIVE METABOLIC PANE Yuriy 12-06-2024 Albumin [Mass/Vol] 2.7 g/dL Low 3.5-5.0 [facility] Comment on above: Performed By: #### L AB17, [id number] ####[employer]ental Agency Manager: JAZLYN JIMENEZ ([phone])[facility] [place] [address] ALP [Catalytic activity/Vol] 63 U/L Normal 40-150 [facility] Comment on above: Performed By: #### L AB17, [id number] ####[employer] Rental Agency Manager: JAZLYN JIMENEZ ([phone])[facility] ([facility])[address] [place] [address] ALT [Catalytic activity/Vol] 7 U/L Normal <40 [facility] Comment on above: Performed By: #### L AB17, [id number] ####[employer] Rental Agency Manager: JAZLYN JIMENEZ ([phone])[facility] ([facility])[address] [place] [address] Anion gap [Moles/Vol] 8 mmol/L Normal 3-13 [facility] Comment on above: Performed By: #### L AB17, [id number] ####[employer] Rental Agency Manager: JAZLYN JIMENEZ ([phone])[facility] ([facility])[address] [place] [address] [place] AST [Catalytic activity/Vol] 17 U/L Normal <34 [facility] Comment on above: Performed By: #### L AB17, [id number] ####[employer] Rental Agency Manager: JAZLYN JIMENEZ ([phone])[facility] ([facility])[address] [place] [address] [place] Bilirubin [Mass/Vol] 0.2 mg/dL Normal <1.2 [facility] Comment on above: Performed By: #### L AB17, [id number] ####[employer] Rental Agency Manager: JAZLYN JIMENEZ ([phone])[facility] ([facility])[address] [place] [address] [place] Calcium [Mass/Vol] 10.0 mg/dL Normal 8.4-10.2 [facility] Comment on above: Performed By: #### L AB17, [id number] ####[employer] Rental Agency Manager: JAZLYN JIMENEZ ([phone])[facility] ([facility])[address] [place] [address] Chloride [Moles/Vol] 110 mmol/L High 98-107 [facility] Comment on above: Performed By: #### L AB17, [id number] ####[employer] Rental Agency Manager: JAZLYN JIMENEZ ([phone])[facility] ([facility])[address] [place] [address] CO2 [Moles/Vol] 23 mmol/L Normal 22-29 [facility] Comment on above: Performed By: #### L AB17, [id number] ####[employer] Rental Agency Manager: JAZLYN JIMENEZ ([phone])[facility] ([facility])[address] [place] [address] Creatinine [Mass/Vol] 1.19 mg/dL Normal 0.72-1.25 [facility] Comment on above: Performed By: #### L AB17, [id number] ####[employer] Rental Agency Manager: JAZLYN JIMENEZ ([phone])[facility] ([facility])[address] [place] [address] GLOMERULAR FILTRATION RATE ML/MIN/1.73 SQ M.PREDICTED 74.0 mL/min/1.73m*2 Normal >60.0 [facility] Comment on above: Result Comment: Calc ulation based on the Chronic Kidney Disease Epidemiology Collaboration (CKD-EPI) equation refit without adjustment for race Performed By: #### L AB17, [id number] ####[employer] Rental Agency Manager: JAZLYN JIMENEZ ([phone])[facility] ([facility])[address] [place] [address] Glucose [Mass/Vol] 92 mg/dL Normal 74-100 [facility] Comment on above: Performed By: #### L AB17, [id number] ####[employer] Rental Agency Manager: JAZLYN JIMENEZ ([phone])[facility])[address] [place] [address] [place] Potassium [Moles/Vol] 4.3 mmol/L Normal 3.5-5.1 [facility] Comment on above: Result Comment: [facility] potassium values may be up to 0.5 mmol/L lower than serum values. Performed By: #### L AB17, [id number] ####[employer] Rental Agency Manager: JAZLYN JIMENEZ ([phone])[facility])[address] [place] [address] Protein [Mass/Vol] 7.4 g/dL Normal 6.4-8.3 [facility] Comment on above: Performed By: #### L AB17, [id number] ####[employer] Rental Agency Manager: JAZLYN JIMENEZ ([phone])[facility])[address] [place] [address] Sodium [Moles/Vol] 141 mmol/L Normal 136-145 [facility] Comment on above: Performed By: #### L AB17, [id number] ####[employer] Rental Agency Manager: JAZLYN JIMENEZ ([phone])[facility])[address] [place] [address] Urea nitrogen [Mass/Vol] 15 mg/dL Normal 9-23 [facility] Comment on above: Performed By: #### L AB17, [id number] ####[employer] Rental Agency Manager: JAZLYN JIMENEZ ([phone])[facility])[address] [place] [address] CRP [Mass/Vol]Ordered By: Dave Churchill on 12-06-2024 Interpretation and review of laboratory results Abnormal [facility] CT PELVIS W IV CONTRASTon CT PELVIS [...] on our table best imaging possible Normal [facility] CT Pelvis W contrast Mp Impression: Large wound along the proximal posterior thigh with large abscess within the posterior compartment of the left upper thigh. There is also presumed cellulitis. No obvious acute cortical erosion. Please note, the marrow is not assessed on a CT examination. Report Dictated on Electronically Signed By: Tess Carter MD Electronically Signed Date/Time: 12/06/2024 1:29 PM EDT [facility] 1975 [id number] Exam Date/Time: 12/06/2024 12:46 Procedure: CT PELVIS [...] Probable few small bladder diverticula present, posteriorly. [facility] Tess Carter MD - 12/06/2024 Patient Name: [facility]AN LA [facility] 1975 [id number] Exam Date/Time: 12/06/2024 12:46 Procedure: CT PELVIS [...] Electronically Signed Date/Time: 12/06/2024 1:29 PM EDT [facility] Radiology Study observation (narrative) [facility] Pelvis W contrast IVOrder ed By: Tess Carter on 12-06-2024 [facility] Work Phone: CULTURE ANAEROBICon 12-07-19 25 CULTURE ANAEROBIC ANAEROBIC CULTURE Reference Mixed aerobic and anaerobic bacteria present. BACTEROIDES FRAGILIS GROUP Few Bacteroides fragilis group (A) [ S = SUSCEPTIBLE R = RESISTANT I = INTERMEDIATE S-DD = Susceptible-dose dependent NS = Non-susceptible NO = No Interpretation ] Normal [facility] Comment on above: Performed By: #### L [id number] #### Car Rental [employer] Manager: JAZLYN JIMENEZ ([phone]) [facility]) [address] [place] [address] CULTURE, AEROBIC BACTERIA WI TH GRAM STAINon 12-06-2024 CULTURE, AEROBIC BACTERIA WITH GRAM STAIN CULTURE Reference Moderate enteric phil present GRAM STAIN RESULT (A) Reference (A) Few Polymorphonuclear leukocytes per low power field Rare Gram negative bacilli [ S = SUSCEPTIBLE R = RESISTANT I = INTERMEDIATE S-DD = Susceptible-dose dependent NS = Non-susceptible NO = No Interpretation ] Normal [facility] Comment on above: Performed By: #### L [id number], [id number] #### [employer]ental [employer] Manager: JAZLYN JIMENEZ ([id number]) [facility] [address] [place] [address] Comprehensive metabolic 1998 panelon 12-06-2024 Albumin [Mass/Vol] 2.7 g/dL Low 3.5 - 5.0 g/dL [facility] ALP [Catalytic activity/Vol] 63 U/L 40 - 150 U/L [facility] ALT [Catalytic activity/Vol] 7 U[facility] Anion gap [Moles/Vol] 8 mmol/L 3 - 13 mmol/L [facility] AST [Catalytic activity/Vol] 17 U/L [facility] - 34 U/L [facility] Bilirubin [Mass/Vol] 0.2 mg/dL NINF - 1.2 mg/dL [facility] Calcium [Mass/Vol] 10 mg/dL 8.4 - 10. 2 mg/dL [facility] Chloride [Moles/Vol] 110 mmol/L High 98 - 10 7 mmol/L [facility] CO2 [Moles/Vol] 23 mmol/L 22 - 29 mmol/L [facility] Creatinine [Mass/Vol] 1.19 mg/dL 0.72 - 1.25 mg/dL [facility] GFR/1.73 sq M.predicted (S/P/Bld) [Vol rate/Area] 74 mL/min - PINF [facility] Comment on above: Calculation based on the Chronic Kidney Disease Epidemiology Collaboration (CKD-EPI) equation refit without adjustment for race Glucose [Mass/Vol] 92 mg/dL 74 - 100 mg/dL [facility] Interpretation and review of laboratory results Abnormal [facility] Potassium [Moles/Vol] 4.3 mmol/L 3.5 - 5.1 mmol/L [facility] Comment on above: Plasma potassium jeri ues may be up to 0.5 mmol/L lower than serum values. Protein [Mass/Vol] 7.4 g/dL 6.4 - 8.3 g/dL [facility] Sodium [Moles/Vol] 141 mmol/L 136 - 145 mmol/L [facility] Urea nitrogen [Mass/Vol] 15 mg/dL 9 - 23 mg/d L [facility] ECG 12-LEADon 12-06-2024 ECG 12-LEAD IMPRESSION: Sinus bradycardia Electronically Signed On 12-06-2024 11:47:13 EDT by Fer Hollins [facility] ED Nursing Noteon 12-06-2024 ED Nursing Note Assume care of pt from AMAN Sutton for lunch coverage Normal [facility] ED Nursing Note Patient requested pillow to place under right hip/leg for comfort. States he got a text message from that he can "early check in" and questioned if transfer was arranged. This nurse advised patient unknown at this time. [facility] ED Nursing Note Pt to CT Normal [facility] ED Nursing Note This RN attempted to obtain another IV access and blood cultures but was unsuccessful [facility] ED Nursing Note Report to AMAN Pittman. [facility] ED Nursing Note Pt presents to ED via EMS from an assisted living facility with c/o a seeping ulcer. EMS reports this has been an ongoing issue. Pt states he is only ambulatory for short distances. Pt is A&Ox4. [facility] ED Provider Noteon ED Provider Note Emergency [...] Solutions Fer Hollins MD 12/06/24 1120 [facility] ED Provider Note Emergency Department Encounter Location: [facility] EMERGENCY DEPT Patient: Kevan La : 1975 Date of evaluation: 12/06/2024 ED Provider: Rogelio Wilkinson DO Time received sign-out: [id number] Kevan La was checked out to me [...] 397 ms QTC Interval 390 ms P [place] 44 degrees QRS [place] 55 degrees T Wave [place] 56 degrees DC Interval 142 ms Blood [...] signout was to transfer the patient to [facility] for further management of his gluteal abscess (more content not included)... [facility] ED Provider Note EMERGENCY DEPARTMENT [...] who presents to the emergency department from [facility] with concern for left hip wound. Per records he has had a left hip wound and abscess for the past few months and recently had it drained at [facility]. He expresses concern for increasing pain, drainage [...] Resource Strain: Medium Risk (12/07/2024) Received from [facility] Overall Financial Resource Strain (CARDIA) Difficulty of Paying Living Expenses: Somewhat hard Food Insecurity: No Food Insecurity (12/07/2024) Received from [facility] Hunger Vital Sign Worried About Running Out of Food in the Last Year: Never true Ran Out of Food in the Last Year: Never true Recent Concern: Food Insecurity - Food Insecurity Present (10/11/2024) Received from [facility] Hunger Vital Sign Worried About Running Out of Food in the Last Year: Sometimes true Ran Out of Food in the Last Year: Sometimes true Transportation Needs: No Transportation Needs (12/07/2024) Received from [facility] PRAPARE - Transportation Lack of Transportation (Medical): No Lack of Transportation (Non-Medical): No Intimate Partner Violence: Not At Risk (12/07/2024) Received from [facility] Humiliation, Afraid, Rape, and Kick questionnaire Fear of Current or Ex-Partner: No Emotionally Abused: No Physically Abused: No Sexually Abused: No Housing Stability: High Risk (12/07/2024) Received from [facility] Housing Stability Vital Sign Unable [...] Result Impression: (more content not included)... Normal [facility] ED Provider Note I was signed [...] Fer Hull MD Resident 12/08/24 0656 Normal [facility] ESR (Bld) [Velocity]Ordered By: Philly Lal on 12-06-2024 Interpretation and review of laboratory results Abnormal [facility] Laboratory - Chemistry and C hemistry - challengeOrdered By: Oneida Churchill on 12-06-2024 CRP [Mass/Vol] 95.9 mg/L High NINF - 5.0 mg/L [facility] Laboratory - Hematology and Cell countsOrdered By: Philly Lal on 12-06-2024 ESR (Bld) [Velocity] 73 mm/h High [facility] No Panel Informationon 12-06 P [place] 44 degrees [facility] DC Interval 142 ms [facility] QRS [place] 55 degrees [facility] QRSD Interval 94 ms [facility] QT Interval 397 ms [facility] QTC Interval 390 ms [facility] T Wave [place] 56 degrees [facility] Sinus bradycardia Electronically Signed On 12-06-2024 11:47:13 EDT by Fer Hollins CV Fer Nix MD - 12/06/2024 IMPRESSION: Sinus bradycardia Electronically Signed On 12-06-2024 11:47:13 EDT by Fer Hollins [facility] Progress Noteon 12-06-2024 Progress Note Culture result reviewed. No further treatment needed. Normal [facility] SEDIMENTATION RATE, AUTOMATE Don 12-06-2024 SEDIMENTATION RATE, ERYTHROCYTE 73 mm/hr High 0-10 [facility] Comment on above: Performed By: #### L [id number], [id number] ####Car Rental Agency Manager: JAZLYN JIMENEZ ([id number])[facility])[address] [place] [address] Urinalysis complete panel (U )on 12-06-2024 Bilirubin Ql (U) Negative Negative mg/dL [facility] Clarity (U) Clear Clear [facility] Color (U) Light Yellow Lt. Yellow [facility] Glucose Ql (U) Normal Normal (<70) mg/dL [facility] Hemoglobin Ql (U) Negative Negative mg/dL [facility] Interpretation and review of laboratory results Normal [facility] Ketones (U) [Mass/Vol] Negative Negat sulema mg/dL [facility] Leukocyte esterase Test strip Ql (U) Negative Negative Gabe/uL [facility] Nitrite Ql (U) Negative Negative [facility] th pH (U) 5.5 [pH] 5.0 - 8.0 pH [facility] Protein (U) [Mass/Vol] Negative Negat sulema mg/dL [facility] Specific gravity (U) [Rel density] 1.016 1.005 - 1.030 [facility] Urobilinogen (U) [Mass/Vol] Normal Normal (0-1) mg/dL [facility] Vital signson 12-06-2024 Heart rate 58 /min bpm [facility] Anion gap in Serum or Plasma Ordered By: Julio Nolasco on 12-04-2024 Anion gap [Moles/Vol] 11 mmol/L 5-15 [facility] BUN/creatinine ratioOrdered By: Julio Nolasco on 12-04-2024 Urea nitrogen/Creatinine [Mass ratio] 11.5 mg/mg 10-20 [facility] Carbon dioxide, total [Moles /volume] in Central venous bloodOrdered By: Julio Nolasco on 12-04-2024 CO2 [Moles/Vol] 23.5 mmol/L 21.0-32.0 [facility] Chloride assayOrdered By: nicholas Nolasco on 12-04-2024 Chloride [Moles/Vol] 104 mmol/L 98-108 [facility] GFR/1.73 sq M.predicted yobany g non-blacks MDRD (S/P/Bld) [Vol rate/Area]Ordered By: Julio Nolasco on 12-04-2024 Estimated GFR (MDRD) Non-Af Amer 65 >60 [facility] Comment on above: mL/min/1.73m2 CKD-EP I Creatinine Equation (2020) Potassium (Unsp spec) [Mass/ Vol]Ordered By: Julio Nolasco on 12-04-2024 Potassium [Moles/Vol] 4.3 mmol/L 3.3-5.1 [facility] Serum creatinine measurement (mass/volume)Ordered By: Julio Nolasco on 12-04-2024 Creatinine [Mass/Vol] 1.32 mg/dL High 0.70-1.20 [facility] Serum glucose measurement (m ass/volume)Ordered By: Julio Nolasco on 12-04-2024 Glucose [Mass/Vol] 105 mg/dL High 70-99 [facility] Serum or plasma calcium mervat urement (mass/volume)Ordered By: Julio Nolasco on 12-04-2024 Calcium [Mass/Vol] 10.7 mg/dL 7.6-11.0 [facility] Serum or plasma urea nitroge n measurement (mass/volume)Ordered By: Julio oNlasco on 12-04-2024 Urea nitrogen [Mass/Vol] 15 mg/dL - [facility] Sodium levelOrdered By: William Nolasco on 12-04-2024 Sodium [Moles/Vol] 139 mmol/L 133-145 [facility] CBC W Auto Differential pane l (Bld)on 11-27-2024 Basophils (Bld) [#/Vol] 0.09 10*3/uL [facility] Basophils/100 WBC (Bld) 0.7 % 0.0 - 2.0 % [facility] Eosinophils (Bld) [#/Vol] 0.58 10*3/uL [facility] Eosinophils/100 WBC (Bld) 4.7 % 0.0 - 6.0 % [facility] Erythrocyte distribution width (RBC) [Ratio] 16.4 % High 11.5 - 14.5 % [facility] Hematocrit (Bld) [Volume fraction] 25 % Low 41.0 - 52.0 % [facility] Hemoglobin (Bld) [Mass/Vol] 7.9 g/dL Low 13.5 - 17.5 g/dL [facility] Immature granulocytes (Bld) [#/Vol] 0.04 10*3/uL [facility] Immature granulocytes/100 WBC (Bld) 0.3 % 0.0 - 0.9 % [facility] Interpretation and review of laboratory results Abnormal [facility] Lymphocytes (Bld) [#/Vol] 1.78 10*3/uL [facility] Lymphocytes/100 WBC (Bld) 14.5 % 13.0 - 44.0 % [facility] MCH (RBC) [Entitic mass] 26.7 pg 26. 0 - 34.0 pg [facility] MCHC (RBC) [Mass/Vol] 31.6 g/dL Low 32.0 - 36.0 g/dL [facility] MCV (RBC) [Entitic vol] 85 fL 80 - 100 fL [facility] Monocytes (Bld) [#/Vol] 0.92 10*3/uL [facility] Monocytes/100 WBC (Bld) 7.5 % 2.0 - 10.0 % [facility] Neutrophils (Bld) [#/Vol] 8.88 10*3/uL High [facility] Neutrophils/100 WBC (Bld) 72.3 % 40.0 - 80.0 % [facility] Nucleated RBC/100 WBC (Bld) [Ratio] 0 % [facility] Platelets (Bld) [#/Vol] 715 10*3/uL High [facility] RBC (Bld) [#/Vol] 2.96 10*6/uL Low [facility] WBC (Bld) [#/Vol] 12.3 10*3/uL High [facility] Magnesiumon 11-27-2024 Magnesium [Mass/Vol] 1.75 mg/dL 1.60 - 2.40 mg/dL [facility] Magnesium [Mass/Vol]on 11-27 Interpretation and review of laboratory results Normal [facility] No Panel Informationon 11-27 [facility] Renal function 2000 panelon 11-27-2024 Albumin BCP dye [Mass/Vol] 3.2 g/dL Low 3.4 - 5.0 g/dL [facility] Anion gap [Moles/Vol] 14 mmol/L 10 - 2 0 mmol/L [facility] Calcium [Mass/Vol] 9.5 mg/dL 8.6 - 10. 6 mg/dL [facility] Chloride [Moles/Vol] 99 mmol/L 98 - 10 7 mmol/L [facility] CO2 [Moles/Vol] 27 mmol/L 21 - 32 mmol/L [facility] Creatinine [Mass/Vol] 1.38 mg/dL High 0.50 - 1.30 mg/dL [facility] GFR/1.73 sq M.predicted among non-blacks MDRD (S/P/Bld) [Vol rate/Area] 62 mL/min/{1.73_m2} - PINF [facility] Glucose [Mass/Vol] 139 mg/dL High 74 - 99 mg/[facility] Interpretation and review of laboratory results Abnormal [facility] Phosphate [Mass/Vol] 2.5 mg/dL 2.5 - 4 .9 mg/dL [facility] Potassium [Moles/Vol] 4 mmol/L 3.5 - 5.3 mmol/L [facility] Sodium [Moles/Vol] 136 mmol/L 136 - 145 mmol/L [facility] Urea nitrogen [Mass/Vol] 10 mg/dL 6 - 23 mg/d L [facility] Bacteria identified Cx Nom ( Bld)on 11-26-2024 Interpretation and review of laboratory results Normal [facility] CBC W Auto Differential pane l (Bld)on 11-26-2024 Basophils (Bld) [#/Vol] 0.1 10*3/uL [facility] Basophils/100 WBC (Bld) 0.8 % 0.0 - 2.0 % [facility] Eosinophils (Bld) [#/Vol] 0.51 10*3/uL [facility] Eosinophils/100 WBC (Bld) 4.2 % 0.0 - 6.0 % [facility] Erythrocyte distribution width (RBC) [Ratio] 16.2 % High 11.5 - 14.5 % [facility] Hematocrit (Bld) [Volume fraction] 26.6 % Low 41.0 - 52.0 % [facility] Hemoglobin (Bld) [Mass/Vol] 8.3 g/dL Low 13.5 - 17.5 g/dL [facility] Immature granulocytes (Bld) [#/Vol] 0.05 10*3/uL [facility] Immature granulocytes/100 WBC (Bld) 0.4 % 0.0 - 0.9 % [facility] Interpretation and review of laboratory results Abnormal [facility] Lymphocytes (Bld) [#/Vol] 1.6 10*3/uL [facility] Lymphocytes/100 WBC (Bld) 13.3 % 13.0 - 44.0 % [facility] MCH (RBC) [Entitic mass] 26.4 pg 26. 0 - 34.0 pg [facility] MCHC (RBC) [Mass/Vol] 31.2 g/dL Low 32.0 - 36.0 g/dL [facility] MCV (RBC) [Entitic vol] 85 fL 80 - 100 fL [facility] Monocytes (Bld) [#/Vol] 1.2 10*3/uL High [facility] Monocytes/100 WBC (Bld) 9.9 % 2.0 - 10.0 % [facility] Neutrophils (Bld) [#/Vol] 8.61 10*3/uL High [facility] Neutrophils/100 WBC (Bld) 71.4 % 40.0 - 80.0 % [facility] Nucleated RBC/100 WBC (Bld) [Ratio] 0 % [facility] Platelets (Bld) [#/Vol] 780 10*3/uL High [facility] RBC (Bld) [#/Vol] 3.14 10*6/uL Low [facility] WBC (Bld) [#/Vol] 12.1 10*3/uL High [facility] Laboratory - Microbiology an d Antimicrobial susceptibilityon 11-26-2024 Bacteria identified Cx Nom (Bld) No growth at 4 days - FINAL REPORT [facility] Magnesiumon 11-26-2024 Magnesium [Mass/Vol] 2.07 mg/dL 1.60 - 2.40 mg/dL [facility] Magnesium [Mass/Vol]on 11-26 Interpretation and review of laboratory results Normal [facility] No Panel Informationon 11-26 [facility] Renal function 2000 panelon 11-26-2024 Albumin BCP dye [Mass/Vol] 3.4 g/dL 3.4 - 5.0 g/dL [facility] Anion gap [Moles/Vol] 17 mmol/L 10 - 2 0 mmol/L [facility] Calcium [Mass/Vol] 9.2 mg/dL 8.6 - 10. 6 mg/dL [facility] Chloride [Moles/Vol] 101 mmol/L 98 - 10 7 mmol/L [facility] CO2 [Moles/Vol] 24 mmol/L 21 - 32 mmol/L [facility] Creatinine [Mass/Vol] 1.22 mg/dL 0.50 - 1.30 mg/dL [facility] GFR/1.73 sq M.predicted among non-blacks MDRD (S/P/Bld) [Vol rate/Area] 72 mL/min/{1.73_m2} - PINF [facility] Glucose [Mass/Vol] 110 mg/dL High 74 - 99 mg/dL Uni [facility] Interpretation and review of laboratory results Abnormal [facility] Phosphate [Mass/Vol] 2.9 mg/dL 2.5 - 4 .9 mg/dL [facility] Potassium [Moles/Vol] 4.4 mmol/L 3.5 - 5.3 mmol/L [facility] Sodium [Moles/Vol] 138 mmol/L 136 - 145 mmol/L [facility] Urea nitrogen [Mass/Vol] 10 mg/dL 6 - 23 mg/d L [facility] Bacteria identified Cx Nom ( Unsp spec)on 11-25-2024 Interpretation and review of laboratory results Abnormal [facility] Work Phone: Microscopic observation Gram stain Nom (Unsp spec) (1+) Rare Polymorphonuclear leukocytes Abnormal [facility] Work Phone: Microscopic observation Gram stain Nom (Unsp spec) (4+) Abundant Mixed Gram positive and Gram negative bacteria Abnormal [facility] Work Phone: [facility] Work Phone: CBC W Auto Differential pane l (Bld)on 11-25-2024 Basophils (Bld) [#/Vol] 0.08 10*3/uL [facility] Basophils/100 WBC (Bld) 0.8 % 0.0 - 2.0 % [facility] Eosinophils (Bld) [#/Vol] 0.49 10*3/uL [facility] Eosinophils/100 WBC (Bld) 5.2 % 0.0 - 6.0 % [facility] Erythrocyte distribution width (RBC) [Ratio] 16.5 % High 11.5 - 14.5 % [facility] Hematocrit (Bld) [Volume fraction] 26.3 % Low 41.0 - 52.0 % [facility] Hemoglobin (Bld) [Mass/Vol] 8.1 g/dL Low 13.5 - 17.5 g/dL [facility] Immature granulocytes (Bld) [#/Vol] 0.03 10*3/uL [facility] Immature granulocytes/100 WBC (Bld) 0.3 % 0.0 - 0.9 % [facility] Interpretation and review of laboratory results Abnormal [facility] Lymphocytes (Bld) [#/Vol] 1.75 10*3/uL [facility] Lymphocytes/100 WBC (Bld) 18.5 % 13.0 - 44.0 % [facility] MCH (RBC) [Entitic mass] 26.5 pg 26. 0 - 34.0 pg [facility] MCHC (RBC) [Mass/Vol] 30.8 g/dL Low 32.0 - 36.0 g/dL [facility] MCV (RBC) [Entitic vol] 86 fL 80 - 100 fL [facility] Monocytes (Bld) [#/Vol] 1.08 10*3/uL High [facility] Monocytes/100 WBC (Bld) 11.4 % 2.0 - 10.0 % [facility] Neutrophils (Bld) [#/Vol] 6.01 10*3/uL [facility] Neutrophils/100 WBC (Bld) 63.8 % 40.0 - 80.0 % [facility] Nucleated RBC/100 WBC (Bld) [Ratio] 0 % [facility] Platelets (Bld) [#/Vol] 747 10*3/uL High [facility] RBC (Bld) [#/Vol] 3.06 10*6/uL Low [facility] WBC (Bld) [#/Vol] 9.4 10*3/uL [facility] Magnesiumon 11-25-2024 Magnesium [Mass/Vol] 1.95 mg/dL 1.60 - 2.40 mg/dL [facility] Magnesium [Mass/Vol]on 11-25 Interpretation and review of laboratory results Normal [facility] No Panel Informationon 11-25 [facility] Renal function 2000 panelon 11-25-2024 Albumin BCP dye [Mass/Vol] 3.1 g/dL Low 3.4 - 5.0 g/dL [facility] Anion gap [Moles/Vol] 14 mmol/L 10 - 2 0 mmol/L [facility] Calcium [Mass/Vol] 9 mg/dL 8.6 - 10. 6 mg/dL [facility] Chloride [Moles/Vol] 100 mmol/L 98 - 10 7 mmol/L [facility] CO2 [Moles/Vol] 27 mmol/L 21 - 32 mmol/L [facility] Creatinine [Mass/Vol] 1.29 mg/dL 0.50 - 1.30 mg/dL [facility] GFR/1.73 sq M.predicted among non-blacks MDRD (S/P/Bld) [Vol rate/Area] 67 mL/min/{1.73_m2} - PINF [facility] Glucose [Mass/Vol] 101 mg/dL High 74 - 99 mg/dL Uni [facility] Interpretation and review of laboratory results Abnormal [facility] Phosphate [Mass/Vol] 2.7 mg/dL 2.5 - 4 .9 mg/dL [facility] Potassium [Moles/Vol] 3.6 mmol/L 3.5 - 5.3 mmol/L [facility] Sodium [Moles/Vol] 137 mmol/L 136 - 145 mmol/L [facility] Urea nitrogen [Mass/Vol] 10 mg/dL 6 - 23 mg/d L [facility] Tissue/Wound Culture/Smearon 11-25-2024 Bacteria identified Cx Nom (Unsp spec) (4+) Abundant Mixed Gram-Positive and Gram-Negative Bacteria [facility] Work Phone: Bacteria identified Cx Nom ( Unsp spec)on 11-24-2024 Beta lactamase organism identified Nom (Isol) Positive [facility] Work Phone: Interpretation and review of laboratory results Abnormal [facility] Work Phone: Microscopic observation Gram stain Nom (Unsp spec) (3+) Moderate Polymorphonuclear leukocytes Abnormal [facility] Work Phone: Microscopic observation Gram stain Nom (Unsp spec) Negative Abnormal [facility] Work Phone: [facility] Work Phone: Bacteria identified Cx Nom ( Unsp spec)Ordered By: Mari Monique on 11-24-2024 Interpretation and review of laboratory results Abnormal [facility] Microscopic observation Gram stain Nom (Unsp spec) No polymorphonuclear leukocytes seen Abnormal [facility] Microscopic observation Gram stain Nom (Unsp spec) (4+) Abundant Mixed Gram positive and Gram negative bacteria Abnormal [facility] CBC W Auto Differential pane l (Bld)on 11-24-2024 Basophils (Bld) [#/Vol] 0.1 10*3/uL [facility] Basophils/100 WBC (Bld) 0.9 % 0.0 - 2.0 % [facility] Eosinophils (Bld) [#/Vol] 0.52 10*3/uL [facility] Eosinophils/100 WBC (Bld) 4.9 % 0.0 - 6.0 % [facility] Erythrocyte distribution width (RBC) [Ratio] 16.1 % High 11.5 - 14.5 % [facility] Hematocrit (Bld) [Volume fraction] 28.6 % Low 41.0 - 52.0 % [facility] Hemoglobin (Bld) [Mass/Vol] 8.7 g/dL Low 13.5 - 17.5 g/dL [facility] Immature granulocytes (Bld) [#/Vol] 0.03 10*3/uL [facility] Immature granulocytes/100 WBC (Bld) 0.3 % 0.0 - 0.9 % [facility] Interpretation and review of laboratory results Abnormal [facility] Lymphocytes (Bld) [#/Vol] 1.84 10*3/uL [facility] Lymphocytes/100 WBC (Bld) 17.2 % 13.0 - 44.0 % [facility] MCH (RBC) [Entitic mass] 26.4 pg 26. 0 - 34.0 pg [facility] MCHC (RBC) [Mass/Vol] 30.4 g/dL Low 32.0 - 36.0 g/dL [facility] MCV (RBC) [Entitic vol] 87 fL 80 - 100 fL [facility] Monocytes (Bld) [#/Vol] 1.11 10*3/uL High [facility] Monocytes/100 WBC (Bld) 10.4 % 2.0 - 10.0 % [facility] Neutrophils (Bld) [#/Vol] 7.12 10*3/uL [facility] Neutrophils/100 WBC (Bld) 66.3 % 40.0 - 80.0 % [facility] Nucleated RBC/100 WBC (Bld) [Ratio] 0 % [facility] Platelets (Bld) [#/Vol] 818 10*3/uL High [facility] RBC (Bld) [#/Vol] 3.29 10*6/uL Low [facility] WBC (Bld) [#/Vol] 10.7 10*3/uL [facility] Magnesiumon 11-24-2024 Magnesium [Mass/Vol] 1.88 mg/dL 1.60 - 2.40 mg/dL [facility] Magnesium [Mass/Vol]on 11-24 Interpretation and review of laboratory results Normal [facility] No Panel Informationon 11-24 [facility] Renal function 2000 panelon 11-24-2024 Albumin BCP dye [Mass/Vol] 3.2 g/dL Low 3.4 - 5.0 g/dL [facility] Anion gap [Moles/Vol] 11 mmol/L 10 - 2 0 mmol/L [facility] Calcium [Mass/Vol] 9.1 mg/dL 8.6 - 10. 6 mg/dL [facility] Chloride [Moles/Vol] 99 mmol/L 98 - 10 7 mmol/L [facility] CO2 [Moles/Vol] 30 mmol/L 21 - 32 mmol/L [facility] Creatinine [Mass/Vol] 1.38 mg/dL High 0.50 - 1.30 mg/dL [facility] GFR/1.73 sq M.predicted among non-blacks MDRD (S/P/Bld) [Vol rate/Area] 62 mL/min/{1.73_m2} - PINF [facility] Glucose [Mass/Vol] 109 mg/dL High 74 - 99 mg/dL Uni [facility] Interpretation and review of laboratory results Abnormal [facility] Phosphate [Mass/Vol] 3.3 mg/dL 2.5 - 4 .9 mg/dL [facility] Potassium [Moles/Vol] 3.8 mmol/L 3.5 - 5.3 mmol/L [facility] Sodium [Moles/Vol] 136 mmol/L 136 - 145 mmol/L [facility] Urea nitrogen [Mass/Vol] 15 mg/dL 6 - 23 mg/d L [facility] Tissue/Wound Culture/Smearon 11-24-2024 Bacteria identified Cx Nom (Unsp spec) Negative [facility] Work Phone: Bacteria identified Cx Nom (Unsp spec) (4+) Abundant Mixed Anaerobic Bacteria [facility] Work Phone: Tissue/Wound Culture/SmearOr dered By: Mari Monique on 11-24-2024 Bacteria identified Cx Nom (Unsp spec) (4+) Abundant Mixed Gram-Positive and Gram-Negative Bacteria [facility] CBC W Auto Differential pane l (Bld)on 11-23-2024 Basophils (Bld) [#/Vol] 0.11 10*3/uL High [facility] Basophils/100 WBC (Bld) 0.8 % 0.0 - 2.0 % [facility] Eosinophils (Bld) [#/Vol] 0.5 10*3/uL [facility] Eosinophils/100 WBC (Bld) 3.5 % 0.0 - 6.0 % [facility] Erythrocyte distribution width (RBC) [Ratio] 16.3 % High 11.5 - 14.5 % [facility] Hematocrit (Bld) [Volume fraction] 30.1 % Low 41.0 - 52.0 % [facility] Hemoglobin (Bld) [Mass/Vol] 9.4 g/dL Low 13.5 - 17.5 g/dL [facility] Immature granulocytes (Bld) [#/Vol] 0.08 10*3/uL [facility] Immature granulocytes/100 WBC (Bld) 0.6 % 0.0 - 0.9 % [facility] Interpretation and review of laboratory results Abnormal [facility] Lymphocytes (Bld) [#/Vol] 1.65 10*3/uL [facility] Lymphocytes/100 WBC (Bld) 11.5 % 13.0 - 44.0 % [facility] MCH (RBC) [Entitic mass] 26.8 pg 26. 0 - 34.0 pg [facility] MCHC (RBC) [Mass/Vol] 31.2 g/dL Low 32.0 - 36.0 g/dL [facility] MCV (RBC) [Entitic vol] 86 fL 80 - 100 fL [facility] Monocytes (Bld) [#/Vol] 1.59 10*3/uL High [facility] Monocytes/100 WBC (Bld) 11.1 % 2.0 - 10.0 % [facility] Neutrophils (Bld) [#/Vol] 10.38 10*3/uL High [facility] Neutrophils/100 WBC (Bld) 72.5 % 40.0 - 80.0 % [facility] Nucleated RBC/100 WBC (Bld) [Ratio] 0 % [facility] Platelets (Bld) [#/Vol] 844 10*3/uL High [facility] RBC (Bld) [#/Vol] 3.51 10*6/uL Low [facility] WBC (Bld) [#/Vol] 14.3 10*3/uL High [facility] Magnesiumon 11-23-2024 Magnesium [Mass/Vol] 1.94 mg/dL 1.60 - 2.40 mg/dL [facility] Magnesium [Mass/Vol]on 11-23 Interpretation and review of laboratory results Normal [facility] No Panel Informationon 11-23 [facility] Renal function 2000 panelon 11-23-2024 Albumin BCP dye [Mass/Vol] 3.4 g/dL 3.4 - 5.0 g/dL [facility] Anion gap [Moles/Vol] 15 mmol/L 10 - 2 0 mmol/L [facility] Calcium [Mass/Vol] 9.3 mg/dL 8.6 - 10. 6 mg/dL [facility] Chloride [Moles/Vol] 99 mmol/L 98 - 10 7 mmol/L [facility] CO2 [Moles/Vol] 25 mmol/L 21 - 32 mmol/L [facility] Creatinine [Mass/Vol] 1.36 mg/dL High 0.50 - 1.30 mg/dL [facility] GFR/1.73 sq M.predicted among non-blacks MDRD (S/P/Bld) [Vol rate/Area] 63 mL/min/{1.73_m2} - PINF [facility] Glucose [Mass/Vol] 101 mg/dL High 74 - 99 [facility] Interpretation and review of laboratory results Abnormal [facility] Phosphate [Mass/Vol] 3 mg/dL 2.5 - 4 .9 mg/dL [facility] Potassium [Moles/Vol] 4 mmol/L 3.5 - 5.3 mmol/L [facility] Sodium [Moles/Vol] 135 mmol/L Low 136 - 145 mmol/L [facility] Urea nitrogen [Mass/Vol] 14 mg/dL 6 - 23 mg/d L [facility] CBC W Auto Differential pane l (Bld)on 11-22-2024 Basophils (Bld) [#/Vol] 0.09 10*3/uL [facility] Basophils/100 WBC (Bld) 0.7 % 0.0 - 2.0 % [facility] Eosinophils (Bld) [#/Vol] 0.36 10*3/uL [facility] Eosinophils/100 WBC (Bld) 2.7 % 0.0 - 6.0 % [facility] Erythrocyte distribution width (RBC) [Ratio] 16 % High 11.5 - 14.5 % [facility] Hematocrit (Bld) [Volume fraction] 27.8 % Low 41.0 - 52.0 % [facility] Hemoglobin (Bld) [Mass/Vol] 8.7 g/dL Low 13.5 - 17.5 g/dL [facility] Immature granulocytes (Bld) [#/Vol] 0.04 10*3/uL [facility] Immature granulocytes/100 WBC (Bld) 0.3 % 0.0 - 0.9 % [facility] Interpretation and review of laboratory results Abnormal [facility] Lymphocytes (Bld) [#/Vol] 1.44 10*3/uL [facility] Lymphocytes/100 WBC (Bld) 10.7 % 13.0 - 44.0 % [facility] MCH (RBC) [Entitic mass] 26.9 pg 26. 0 - 34.0 pg [facility] MCHC (RBC) [Mass/Vol] 31.3 g/dL Low 32.0 - 36.0 g/dL [facility] MCV (RBC) [Entitic vol] 86 fL 80 - 100 fL [facility] Monocytes (Bld) [#/Vol] 1.28 10*3/uL High [facility] Monocytes/100 WBC (Bld) 9.5 % 2.0 - 10.0 % [facility] Neutrophils (Bld) [#/Vol] 10.28 10*3/uL High [facility] Neutrophils/100 WBC (Bld) 76.1 % 40.0 - 80.0 % [facility] Nucleated RBC/100 WBC (Bld) [Ratio] 0 % [facility] Platelets (Bld) [#/Vol] 780 10*3/uL High [facility] RBC (Bld) [#/Vol] 3.24 10*6/uL Low [facility] WBC (Bld) [#/Vol] 13.5 10*3/uL [facility] Magnesiumon 11-22-2024 Magnesium [Mass/Vol] 2 mg/dL 1.60 - 2.40 mg/dL [facility] Magnesium [Mass/Vol]on 11-22 Interpretation and review of laboratory results Normal [facility] No Panel Informationon 11-22 [facility] Renal function 2000 panelon 11-22-2024 Albumin BCP dye [Mass/Vol] 3.4 g/dL 3.4 - 5.0 g/dL [facility] Anion gap [Moles/Vol] 13 mmol/L 10 - 2 0 mmol/L [facility] Calcium [Mass/Vol] 9.3 mg/dL 8.6 - 10. 6 mg/dL [facility] Chloride [Moles/Vol] 100 mmol/L 98 - 10 7 mmol/L [facility] CO2 [Moles/Vol] 25 mmol/L 21 - 32 mmol/L [facility] Creatinine [Mass/Vol] 1.2 mg/dL 0.50 - 1.30 mg/dL [facility] GFR/1.73 sq M.predicted among non-blacks MDRD (S/P/Bld) [Vol rate/Area] 73 mL/min/{1.73_m2} - PINF [facility] Glucose [Mass/Vol] 105 mg/dL High 74 - 99 [facility] Interpretation and review of laboratory results Abnormal [facility] Phosphate [Mass/Vol] 2.5 mg/dL 2.5 - 4 .9 mg/dL [facility] Potassium [Moles/Vol] 4.1 mmol/L 3.5 - 5.3 mmol/L [facility] Sodium [Moles/Vol] 134 mmol/L Low 136 - 145 mmol/L [facility] Urea nitrogen [Mass/Vol] 15 mg/dL 6 - 23 mg/d L [facility] CBC W Auto Differential pane l (Bld)on 11-21-2024 Basophils (Bld) [#/Vol] 0.09 10*3/uL [facility] Basophils/100 WBC (Bld) 0.7 % 0.0 - 2.0 % [facility] Eosinophils (Bld) [#/Vol] 0.38 10*3/uL [facility] Eosinophils/100 WBC (Bld) 3.1 % 0.0 - 6.0 % [facility] Erythrocyte distribution width (RBC) [Ratio] 16 % High 11.5 - 14.5 % [facility] Hematocrit (Bld) [Volume fraction] 26.9 % Low 41.0 - 52.0 % [facility] Hemoglobin (Bld) [Mass/Vol] 8.6 g/dL Low 13.5 - 17.5 g/dL [facility] Immature granulocytes (Bld) [#/Vol] 0.04 10*3/uL [facility] Immature granulocytes/100 WBC (Bld) 0.3 % 0.0 - 0.9 % [facility] Interpretation and review of laboratory results Abnormal [facility] Lymphocytes (Bld) [#/Vol] 1.38 10*3/uL [facility] Lymphocytes/100 WBC (Bld) 11.1 % 13.0 - 44.0 % [facility] MCH (RBC) [Entitic mass] 27.2 pg 26. 0 - 34.0 pg [facility] MCHC (RBC) [Mass/Vol] 32 g/dL 32.0 - 36.0 g/dL [facility] MCV (RBC) [Entitic vol] 85 fL 80 - 100 fL [facility] Monocytes (Bld) [#/Vol] 1.2 10*3/uL High [facility] Monocytes/100 WBC (Bld) 9.7 % 2.0 - 10.0 % [facility] Neutrophils (Bld) [#/Vol] 9.33 10*3/uL High [facility] Neutrophils/100 WBC (Bld) 75.1 % 40.0 - 80.0 % [facility] Nucleated RBC/100 WBC (Bld) [Ratio] 0 % [facility] Platelets (Bld) [#/Vol] 745 10*3/uL High [facility] RBC (Bld) [#/Vol] 3.16 10*6/uL Low [facility] WBC (Bld) [#/Vol] 12.4 10*3/uL High [facility] [place]/lambda free, serum; [facility]; [facility] - Miscellaneous TestOrdered By: Deborah Youngblood on 11-21-2024 Scan Result See Scanned Result [facility] Magnesiumon 11-21-2024 Magnesium [Mass/Vol] 1.86 mg/dL 1.60 - 2.40 mg/dL [facility] Magnesium [Mass/Vol]on 11-21 Interpretation and review of laboratory results Normal [facility] No Panel Informationon 11-21 [facility] Renal function 2000 panelon 11-21-2024 Albumin BCP dye [Mass/Vol] 3.2 g/dL Low 3.4 - 5.0 g/dL [facility] Anion gap [Moles/Vol] 16 mmol/L 10 - 2 0 mmol/L [facility] Calcium [Mass/Vol] 9.3 mg/dL 8.6 - 10. 6 mg/dL [facility] Chloride [Moles/Vol] 102 mmol/L 98 - 10 7 mmol/L [facility] CO2 [Moles/Vol] 23 mmol/L 21 - 32 mmol/L [facility] Creatinine [Mass/Vol] 1.29 mg/dL 0.50 - 1.30 mg/dL [facility] GFR/1.73 sq M.predicted among non-blacks MDRD (S/P/Bld) [Vol rate/Area] 67 mL/min/{1.73_m2} - PINF [facility] Glucose [Mass/Vol] 96 mg/dL 74 - 99 mg/dL Uni [facility] Interpretation and review of laboratory results Abnormal [facility] Phosphate [Mass/Vol] 2.7 mg/dL 2.5 - 4 .9 mg/dL [facility] Potassium [Moles/Vol] 4 mmol/L 3.5 - 5.3 mmol/L [facility] Sodium [Moles/Vol] 137 mmol/L 136 - 145 mmol/L [facility] Urea nitrogen [Mass/Vol] 14 mg/dL 6 - 23 mg/d L [facility] CBC W Auto Differential pane l (Bld)on 11-20-2024 Basophils (Bld) [#/Vol] 0.08 10*3/uL [facility] Basophils/100 WBC (Bld) 0.7 % 0.0 - 2.0 % [facility] Eosinophils (Bld) [#/Vol] 0.45 10*3/uL [facility] Eosinophils/100 WBC (Bld) 4 % 0.0 - 6.0 % [facility] Erythrocyte distribution width (RBC) [Ratio] 16.3 % High 11.5 - 14.5 % [facility] Hematocrit (Bld) [Volume fraction] 28.4 % Low 41.0 - 52.0 % [facility] Hemoglobin (Bld) [Mass/Vol] 8.6 g/dL Low 13.5 - 17.5 g/dL [facility] Immature granulocytes (Bld) [#/Vol] 0.05 10*3/uL [facility] Immature granulocytes/100 WBC (Bld) 0.4 % 0.0 - 0.9 % [facility] Interpretation and review of laboratory results Abnormal [facility] Lymphocytes (Bld) [#/Vol] 1.78 10*3/uL [facility] Lymphocytes/100 WBC (Bld) 15.6 % 13.0 - 44.0 % [facility] MCH (RBC) [Entitic mass] 26.9 pg 26. 0 - 34.0 pg [facility] MCHC (RBC) [Mass/Vol] 30.3 g/dL Low 32.0 - 36.0 g/dL [facility] MCV (RBC) [Entitic vol] 89 fL 80 - 100 fL [facility] Monocytes (Bld) [#/Vol] 1.18 10*3/uL High [facility] Monocytes/100 WBC (Bld) 10.4 % 2.0 - 10.0 % [facility] Neutrophils (Bld) [#/Vol] 7.84 10*3/uL High [facility] Neutrophils/100 WBC (Bld) 68.9 % 40.0 - 80.0 % [facility] Nucleated RBC/100 WBC (Bld) [Ratio] 0 % [facility] Platelets (Bld) [#/Vol] 771 10*3/uL High [facility] RBC (Bld) [#/Vol] 3.2 10*6/uL Low [facility] WBC (Bld) [#/Vol] 11.4 10*3/uL [facility] Dermatopathology- DERM LABOr dered By: James Bustamante on 11-20-2024 Laboratory comment [employer] (Report) a4hyeHLoXCTri8ygTSGi bGFuZzEwMzNcZnRuYmpc qHKrAXiylgWjYWhgl0Ah V5ZyVsSoTXqgnbDbYSPx ApxfnmqoSLKzITA3ufDr FDZmONupDICnXPasTl3w yGZceFepSxJsSMIff5gf lwIVPGgzLFUMVOb9m9wy TROaIfT5qIMdPAvjG3bo luZirQDdR5Jeu8OuAZr4 eY89BVYyuR1ksHBtGAqo kwOyEtV8EEssBDUoQxG7 HHQufWPfZDXmO4lcKIAh XGdyZWVuMFxibHVlMCA7 nAhtn3R2fHYyeALjsUmg XdHjIbEaYwYOd3GeCLr4 oUomX7FdGTRaGnL7yTBh UGFyYWdyYXBoIEZvbnQ7 bQ19IDplgsM1eMIyg6Zv s63pl102bD0ayPSkDGR8 MTIyNDBccGFwZXJoMTU4 JUSwaCXiU7inMyKpnKAy Y2PjDqQwzOTdI8CfGdZd uTBiP2BuUbAhvKLlJQWc gJN4XEtnu886JLR6RxBo YT1fN4Dmf7S6kA6eqHHg HVJwdSWhXrYhDFRtyx1l rVTlONnmo7MnCFG6sxO0 tGBbgZOeDGGlQP18Mfem f6FbPulkCYO7HDGxfcUb i6Dkg5clJcRudgBwB3gx A6DyLHRxNTZmPKFqDtYd szQel8Kdr3FbhENgqJv0 e0utANLgBMOzuRrnr0pv VMN0PZYnU2P8mSQsz1ml AHdfPAXgyDO0czA4JYth CNEjksL0efP9YYkhIGWg mNA5eyP8NAoqWEYaJxE0 hqW5JJglPUAuPNI0RgAv ZNHsk7DmadrrOnOpg8Xi rADqFHxzA91ni361MXWo rmOjA0bgjVUizxuqxDTg uikfNJocxqV6EWXbJNSg YWluXGYxXGZzMjBcbGFu ZzEwMzNcaGljaFxmMVxk RfRqXCCxEXtyX7nyQtGj KkYhXZPVnES3gRPsv1yv sjL6sEKnVX3nEPWrqALg uaCnu9Q2YRX6rCJntY4i zEHlLXTnfHSgxnNrqs44 vZEzsKT4QVTkCTFghFXf aV1fGWJqMUXFrL4qsGAS erHjdfQuVMYjpMqyyl7V fRSbtn0zuLBsZ1HceZce aWVzIHRoYXQgdGhleSBo KIDnHSXjugcje8NqYKIt gMGsY9EhVI3xWSLwxq33 [facility] Work Phone: Pathology report addendum [employer] (Spec) i8aptFUvYFWomZDgMOor MmlhskEtPUOxvVPnF0Yg uykrISvuNM8rAU6sbOgk aEGluLIqCNTuIxQsn8ot a649sLEyn5lpZGQOhyjc wVu4pRhyT47ra2O6Mawg S49lnACpQKR7MZNlMGQg tHOfHTOoZHT1AMMjxVQn F3erISFsUB1jeiccUSrk MCkiRTNzqPK6BZWokELs O8LqZVQgWAywTXNttge0 YnWpOb2ihGBdsDzvZJvv YXJkXHBsYWluXGZzMjAg RMaVAhCAmGL7iJNhurGq kMMamBBtIvZ2uDLjN6dt vmuukSQaUUYbD44hF19q DrBlTUY4QFkfMKhzplZn CKRsq1MsADOoOC2jNUkm IC4wQ0I0rFFoNNNsozYs bCnvf9pkUsIUyYfkn7as o6BnobIkYZ9cx5OiMaNx ZXhjbHVkZWQgYXMgdGhl HT4seo0yhWK2WN3nKQTy ZPCbvOBcjW9lqrVjyiHz iEHyvK31iiDzJHpdOAQj czHcpb1qGK2dvYKpSOJu cn0= [facility] Work Phone: Pathology report Cancer Narrative [facility] Work Phone: Pathology report final diagnosis Narrative l2nopFAfKHLvrWUdTBbl IaceeeBeZXMleMTwM1Jp mlngEHusZI1wWM8goZqs rTFciMDrUQCcUpSji5db p581eDApv5xcJGPCwbqe wSc9rDwaZ10cb7Z3Fari F68fnZKwENL3FEHzWIUn uJObIFZzVQU1GSLvqXRg O0njTLWjWN6stzaoNIna PIknTNZkiTC4FWZquANr N4VpHULwNXxoPILtrqf3 LwVgDc0drQUftNjpKNhw YXJkXHBsYWluXGZzMjAg BG6cD4rXObofLErLBIRi UFJPWElNQUwsIFBVTkNI THQGE2JGGIoriBRtGYCs XB4TKQGGUgNjJ2KHOW9O WEGoG1OQAUSPSZPIYF4T CIFiBWjaug67ZXK5a0hw aWVsZHtcKlxmbGRpbnN0 ORdPSRLVTTiMFaVkIN6p XNsME2BGJQoNWjveJCP1 O6ktmFN3k5wzaEGmj0w6 GFdpHFI3tMnBNGl1PPDf NBaml7znYMQsSMxfn6Bb QLoMHDVNYE0EFC3sdRO4 KKkHMNQAXSanOUN1W3te oRO6i3kjgALpq9x9IXtx QWH7kCmsdVTyuocuAZJv MjAgIERJRkZFUkVOVElB VEVELCBccHJvdGVjdHtc XhlndJY8SZavTlzdtS9c dCBIWVBFUkxJTksgbmFt MB2AIXROLsUPPS68Vnw0 TIh0CqjlhNwxLwjzhpNd nCOwRfHwgM7FToFLQO4W OY5KVMSAYPTVRYGFINkV QyZIRF6UMkmNSwuqMhwn zIM0QMexVuqfvQ6orLWN CCRHBbfFTimxqkZuZS6T WLGVCP3HaZQ5VTV6rYD0 Ig61XBHpQDBebDAxTLdl J194ZQAeYWqxIKJqCyXs COOeSQEFWUPKJ4EZLqon QXAcmUVbDEIzYC6gsLZ5 NP6rBOFwyCJenw6baJUn aPNvA8mgPT84UDaxOOSq VT1rKURvwOZlnTDlsETd oEHuzM95siPrSHkpOYGt pgQcla4fVWDsrqTzDYNv cmVkIGFsdGhvdWdoIHRo LYFqGHRdVD0vVIRzfFFm eo2rgFMemLRiB1dxFM90 ITAocWCxzyI4yBFweD6u h3jfaXepkJrlr0MiCNTy LRFhd8DoqDeeEZGqtWGj z8XdDKGkzUixJ3QyK3gf n07dQfumYGZolKPqQGni TZKbdfvnTZQLLkQDI9nJ LCBVTENFUiBESVNUQUws ZBVSVkPZLPCSE6TXAWgz dYTcYZLlEC4MDXXPPvPz A6WWBG5ISJIcV1KQWEDR QSEAPS8CLFKvHWqcon41 KJX9e8fqhARgJNduOxaq wAUfarQ6MCbOCCEVTEoG DaCyGK9qLUtVZ5FQATsH PoarEHG2N8xbqPQ0q4bg dNSow5u6SVqqDIS1nQoS EQm9RHHcLVorf6wkJYZx ETwxu9GeXQwGDJSSSN4T DI0vsVF1EQiEUXCJLQvr ELF4S8acmSK3j4kbkVLp y0j1BFbvXES3hHfogSZj kdlrGKZpQaXeTVBLHN7D REVSQVRFTFkgRElGRkVS LM0JMKEFWQUqSVmgar60 TIZ0t7oizAIbACbcJzpp lIZzusP0NHiAOJUBZMxC UuWgVM2pCZuUW8CFPAqR OlxcZFduKFz9eQA2r6wm pOYxi1g2JPtoPND1vOHB XHEXBxRaU92vIIrAMUGP KELuNV0EAYMZFwzHASAA IFfxYWZOW4cLv6ufyJNv SOrrPoufePQajqT0BCaS CJGENRgNYkEsHS7oTJbJ Q8YIYpL7Luf1PTw9HHe9 fXtcZmxkcnNsdCBcJzFj fT4fmZjktH2qCfoimbTr BMfxJ5CSZP7PAHIoANOn awxuFBUaYgMfKy88WOwb Xv6oVYXbSDQdvAFuWVK2 tQDxrU9canAuqNRis8Mr qyUeakLxJFZdLPHnw9Hv dUmhQTTbaUJbq7MbDMPe dMziX8EqP5jre50hLWGi um2ylXHxMPDblMLspKRz BV2zHKjbeaLwtUN4KQVk GMVwBi8mMJxlOXCvEEEc HsQ1ZRZaaTsovhOqqpPx b1ylow7bqNIkUFDeqvis zUO7WUNwAdq3GwPflSce Ttp3QShfRXntXPBzPJK5 fu7fwNOqzFh1QIXvT76d FJYvcMIpLbtrU76cWYVV i71aCKBRRGBuJndyFTQo mNnhMSIzORuznL2aBZZk XHBhclxwYXJkXGJccGFy RHLlY14HUgMCENAFT00P OYWVBLSZE5KPQ9rTREH3 VSLhqHC6HH4qVAyyXZob QGChGrc7GXK7Kn3kMuL1 UIK3tFT6FuXRKNTWVCdC N7WqYGRABPJQKWRmBU0O XQjJLFGXZFFZP17BAZTX NATTF4JRV8yDCVrZIXBG JLFEF26BSBCZSLBZQ8VF FLUKLPTWAVvKYSNRCb0A EPBZRBXAGH5MTUyNSzRv XHtERVJNUEFUSFNDQzoz OQP0I0g5Fde9ZZVxwNRc iAteXTHlpK06Crm0MAmp jHAyx8ZAWh7BGFRUB1JO KxT7FNTyNM81LHdkPTUj jNZ2wC7oyiwcaggyISly NCy6TIYTSFLFEG9UDKTL S28IAESNOOXTJ0HOEUFX QpQDKMFFZ67HPANGOSWI B3SAE2yDGBJMCcEURUYE U97EVJNRIASWK2WONXCP NRKUGsLSOeAEOA1IYNDE QUJTYI2AFOzGYrXuRGPB A9GAFeROH2moZOEUEUJF AUFpRV7VfR== [facility] Work Phone: Pathology report gross observation Narrative o7fglCOtEISzrZAeUJuk AswoqiOmPGZjxAPyY7Pz giipCHbiXN9mEB7mtVhc aVHpmZOvVMHuLdBtp7wq c385uNSor8qtKHBCtsoy xVx2sGoiL99aq4P9Urke Y54trEWiSPL4KCUeVOPv pQHpFPGvSWI4VHGxnEZy J6ddBNUhYW6pzzmjFBfc AQhdPLEwzRF1BUMybJJp V0TpARFgNTtqYFUwpay8 GwIoWg2rwNSkhDefSOol TuqrbAasv8BukDMqLEev IDUxMDAwIFxcbmggXFx0 BDEwZXmeqKRoVP6obJtw RwdrySdms3DabAGbXNzm CPSeSJFsYCcxLCKnG8FV SFKsQuA6BHP1ANLqQSr4 NOa2UD3SNpRdGIYuLwX6 KYU3BBCuQWd2IHhoRP3S WSDmUWC9MWUkRiMcIBEe TjNwWKl1CLCdQSapfpDs SPtgCnfiPSbcP43mtZKk ZFxwbGFpblxmczIyIEE6 XHBhclxwYXJkXHNiMzBc YLJzO3lmVoWoCKIqSxHu HGTzF9iaPUAuUOMhTKsx HABrNdHaJJIpK2QehjYa BUfhCXZuii1arLrfQBqo RFJdRwC3RIZmdUO8GQ7n EEAkGSAeEE0sAKTpeZ8k ICBJdCBpcyBccHJvdGVj yGagNfpwlXX6LEruHmhj qJ2coQIWQVSEFceWGrpy iaMoQV1XNSWLFrHUCB26 PowqRRn3MNxbaWrvRlhe isXjiIBwUlGbwG70HE69 LDPoNUvhc7cfOMPaPTlc y0ClMIbWCAORVI8RJH2z vNB0ONqWSJHVPNwoRYCh JUwiwAM1v0asdCNpz0y5 SFpmELR9jGdggEMakakd dtTtTJUyntKbz9tuie8v AUnsLZWzd7YvkGJ7KCMt DipxXJK0GCTxZGMxTUDd cYRmKONrm0BtF1I3TPZy WQcdn8hsMWNtPYqor4Jw JRbMKDFSOF6QFP2vbOR4 UPpFJKZFI5wThAA2UoT3 pDW8Yc32LXFtSHOpuZYz JSxpK559B6ofxN1xfnth WBf6HWEpAWilf1tcMLGu NPcqy9UnRUlMREBDRJ3D HQ0quUY2CZhAXWKRIRcd LMSqJWwywTL3g0thcRCv t6e8LDrcQQG9lHjpnGVh blxmczIwICBpbiBzaGFw XS6tHDr0MXopcjStyKKw ZGRlZCBccHJvdGVjdHtc JentgBM1ZHpyZwvwkO9y dCBIWVBFUkxJTksgbmFt AU6EFHZZDhFACW00Nsem VmR5N0nvcYxpTukguyWr jQUhYnQjrK8beaG9z0Oe k8vouLAmMBhtRvxjuDOb doK5JIyJBVAQVVgKHbAr ZR8oRSmKZ3OJVsK4Tyof VpG4T5yjgUecXkbzkgKe oHQpYmOtcH2gwPdydT9x ZnMyMCAuICBccHJvdGVj lLnvGfosoDS5KEiyBphc cO0jjNWYCTVRYpcEMmmd apHmPX7SSZSEWvJIUP65 Tmj9Fic0EMl9hHonWxfc uiNlzHAhKxCliQ7UdMMg f9HhB0vaLB0ro2ZsGYsc p9JiUpqvVjtboME8SWuq QyblmI6cdPVOJQEDLteM JwxbtwJbVV4LCFKVNE7H xHR1JGD4eOA8SC53UVQz GDQkwNElLIkbP313NNJj QTpyXCGxXyAaRKWkn4vb jAdyk7TcsQNuAL1ppJAg n1okZQWfpVIdOQL0SFic aWQgNTEwMDIgXFxkYiBP QgRkLoJdAZL0XED0NsDu FXd6LWxcQ5TWLHDqOUF2 MpB0UMl7BeO0VAn4HUFF Es7lZGH4RnJ2FuX9FmD1 IJA0CBAfBGAyVjNeZQPn UFLkMNgdcTGzTN5tGHkh UsH1RHAkbeSiz9AnIKNj SESpL6wcRvIoXWfaxeNr XYY4VIWcvkfqFKQoWXPb OtHaAHScN9mdAjVzBHNn BUjjNREtZzIfGFKpN4Zx aaHxOUxbUGWnlq6zrCpo OBqlUMYtYhG2SAFnfQN0 VV6oGUOkXXUyDN9vBIFt yE3rAWFXkGAxthCifDVm yPRwsRnsHgzhaPV9AAgf JunzpC8kkTACLPXYHycN LvhghiRvXO1WNZHJWfYW QJ94TopxJHt7OSw4yOzm BhbsqqIulORwLrGpcW68 GE94DIJvVDepl6tlUHMn PFiqt1SnPJlEFFTIHM7S PD9yuES1QLoVIEFUKQrc AKRpNLi3vFA9g8pcsUXz r1r6VWyxDSZ7wMbzeXIi fyepbxGbUOGtzcZqo1te mm3zSPzlJXPfk2OylHN4 KZHaHawkXIF9FKZdSBYS dCBpcyBccHJvdGVjdHtc AzmjbAN4SLwpMutiqT4q dCBIWVBFUkxJTksgbmFt WU6JZEIREtBAGF69Xyzj FXf0Far6mFtpUsegoxBp fRCdYuUedW3gwZjoitYd hFIrfRbpZhovxII9KOtc AubobA9lnFYCHZAHBknM KiwrmcAuHY8SWXXCPY2W kJH7YoU5yDD1Wc38PKJd ZPPygMCpGGccU655ZFLc YWluXGZzMjAgIGluIHNo BDIuRjYvMABer2HeWMZr CtCcHCRyDNmpuw51EYG9 j6nulOXqDJqgDfnlsXGs yiH9FLyOEFQDSIfSPjCl WK8iVWbQU1KFLThUYhkf ORPnIUk2vCz4f7nxgFMn b4k7IKouEVH5cUoyIQVz bI84HAQnNDzsg4teUMGe YVbog8RqHFoBIPKFAS1F BD5vrZA4JOuHFERSUAur JNWeTOu0mYw1x7gpiMTg p0p3GBpfOLX7dEughFOc xhqopsFeIP9qSGztfr96 XVR0q5hizLMpFVtjNdrn iPDegiD7FPpAMJPOLOyD OfZcHD7pIPyCZ9GVOIdB XdjwPLumJEn5kZe8a5zs jSIvp7u7LXuyTUJ9fYSg QNLvzMZtsC5qtvX4INKz tK6jMEXia5rbzFSrSFyz LxvjcZLcsdQ2EGuEPTIG JTpSFcAkAF5fXYmOS9RM PhK6Ugj1Uyy8ARz0yQxp YhbnsoUhwTBjWsLzlW7v xBrnlS6iGuSvZIUgNYyh JBBekUQmNMioPMSru9At MFxlcGljWHNhMzAgVGhl IHNwZWNpbWVuIHdhcyBn hh2sh4BcXVL4YGcniy47 EYB9u9xtgZHmKIizAqjk yREkdpZ9LHqOUSNALZeD PnSzXB5yMUwOB3JVUTiQ Fam2VWJ2Kkr3oEd3d8xm yLMnu4l3MCldBDA5qUNk kEiziMK0XBYRkFEeSX3u ZEhtfq55PVUeDXifz4rg YZEgNUlcc5WuFOhLHWAB NW1HLS5igVK0QRiVIGVH YSt6KNN4Ssz2hYm3x5mw yBXqu2x0EQbmXQS1yNmi aBDhhrbisxCpQVU5BTOw tMLhHAS7UW2dbCsmHUCx E9WaV5AaxyO3CVXzegg9 YVJPKNNSQVrVYK5OSEJB VZBGJW6PWApUJbNwZCIp NWavZVQsXceeITw7Mu4p WpZ3QjPzjKJ4Em4sTQpm TAs1JMLdSdpnRFd1QJ3p VlX6GeU3oWP5Be9oADTi KGm6CNOzShv6Epy8AX9r FyPyXCjyrLd5QgODEZKW PSrDW2NjZXUKWHYGOHQz QP6BWEeRQZXFQVTSB30F ZABSQOMEY4PWY8zDFIvV YNPMXKFDK01NSTEVLPHB Q6GQIWWVUGKEFZgCXYNE Cx7SGOKNRVVOVI2DINkT OyLuORgpMSFqpBU1dGWs oV4gKcS9QfV9XP1rGIuz EJKdaXJ8sGYkWLBkXsF0 UmT3PG7qBQrjXUAipWG6 jONxOsHdGJRjXcP9WuVt FF39XCepJSWitTB9dLnm gerqFDluLNo6YBr4HTXq vSYxpYvoq5idqyfsXNMg KJk6Xtl7MGXciMIooFwz pPBcGSljFKSoFNr7I0c8 ZGVybXBhdGhlbWJlZGRl YOwhDRWbSNf3FDg6HVKh gDSqoHgxkpf0Uiv5Xwbu eTmsd4Jdli8kPWEyG6Va y1Asdai9HEM9Qde5VFGF JWHTXJ8LLYCAW54SISKP JYVAY7ZAGBEXTaSOOCEQ P54TCDFDVKESW2NOG8gC TNYDDqRIPUQVJ00RUWNP KELFB8TUMFQULHPBSyTF OsUGKB1BHBPBARNEVB0T WGxAMbSiAEPDL4VPUsKB Q1myKFGTDYEUPDKiMR7J fQ== [facility] Work Phone: Pathology report microscopic observation Narrative Other stain o2quxVJnCFGvvRSaNNdn IxedvqAiPMAmoMPuX0St rrcmLGvnMY6lTL9pmTfb cVBjnVYmIWWlExBab1ns n100xXDnl9wsUWWPsyym fVr1fOxvI77pn5F7Wszx L00mrSQyKST1MFOrGQBp xWUfOLWkDED4CZEvfNUo F3xiUTXsQB9ipioaKLuv GHzoPBKjlUV0PCPjoZNu Z1CzZDHnDHzlGBPashr1 IpUiNv6idJIfgGtdDCsl YXJkXHBsYWluXGZzMjAg KK6kRMogsw6bJ61rgDSj PSkcxUobGHIaw07ymlO9 ZWFscyBhIHNwZWNpbWVu ANOnQHNtEQn9BZ1ceeFy bnRvIHRoZSBkZWVwIHJl dGljdWxhciBkZXJtaXMu IEluIHRoZSBzdXBlcmZp U8xmtFOukvGvKUJesXZg ZXJtaXMgdGhlcmUgYXJl FLeapEHgHHTjx4Tmq5Ll YIOrem1haPOmeyE8lKXe UJQuizAjMTjbj4CcDRZw pjw6CKZcw41bIXHaavky SELaSd9qICozih3wG63s yHDaSA2lcVmcvCCav9sj u7QapYOoIRv8cBZnQZsf j1r0wPHlAsCjMXKtaEfy o1M5pRWhKBErWEJrTMTh HDEts84qhZF0RYOqj1c8 vXZ5jJIfJNTyMTVboNov IGFuZCBpbnZhZGUgdGhl BENclg6dfhTmfmKei51x JWXjOTFqq3srubUoPMBd AIMshRNapsCiEvPcXM3w kjOwNAGgyTHyYA6rBYTp sxRgYPxns6JqXDVtock9 ALBws11xOCHaUIWeOWXt xeOfRYynBCEmm1ZySJJi uGgzLQDnVXQcj13pqUny IGXbJYIvVGJePAAzod7v IHRoZSBzdHJvbWEuICBB dHlwaWEgaXMgbWlsZCwg GN2iHB6avB3yIGIaTFRq IHJhcmUuXHBhclxwYXJc cGFyXHBhcn0= [facility] Work Phone: Pathology report relevant history Narrative l3ifdJSrAVYprINzUHfw XgqrumIkWYSerCWqH5Wq lkyiBJmnRM4aOK4teJky dOLseLTeIJSwRuUzr4qg f111rEXlz3ljBRPNotrk kEg7p0uxPXLJBTppPNOA TKf9qUggL31cn4Y4Jguj L4kdOVMgSMzvAINxZTxk nCCiOXb8SBYhpJSbwnFi PiLvJCPhwQIyfDP7HROi PT0gyhoyOHznDFwsHHDk ddS4MVIqaDBrB5UuBLHy TX3uhyziRGD5OBetESOo COK7GeUvUAWev5Dxhxl0 MjBccGFyZFxwbGFpblxm SFknxtEhFPReHETYCT4p o5Vbw69yECepR91wh0bt JvHHwEQ8DEAgDTAhg9Cj c2PmYNMzBgPiCRTdnsbx NGRtrNGzAWDjmC5vB9Im AIwua9IyqaobK5ZgL9ys sKKKOIL2TQF6RtPkzQPv bmljIGhpZHJhZGVuaXRp cyA+LiEtzHSdfzLed61b qlfywZZlJvC7zX4ol9Se KL8vyiK5hTOePJOaG2CG LH5riIXcwRV7vFBdkHEi fZR3qPczjBGix7Z5rRZn JRPje8DzvVCrnakeLLDi XVJqISkgVaGyO70ckGib UPViwKn4JPVoUSPcHI4s DAvrYbXmYwS0kJ7he8Ps z6f9lPYqlJQlnUHaa93v vFuhruUcstL6aYBobQTe kXEhwFKHM5HlbQFcoR== [facility] Work Phone: [facility] Work Phone: Magnesiumon 11-20-2024 Magnesium [Mass/Vol] 2.13 mg/dL 1.60 - 2.40 mg/dL [facility] Magnesium [Mass/Vol]on 11-20 Interpretation and review of laboratory results Normal [facility] No Panel Informationon 11-20 [facility] RBC shape Nom (Bld)on 2024 RBC morphology finding Nom (Bld) No significant RBC morphology present [facility] Renal function 2000 panelon 11-20-2024 Albumin BCP dye [Mass/Vol] 3.4 g/dL 3.4 - 5.0 g/dL [facility] Anion gap [Moles/Vol] 15 mmol/L 10 - 2 0 mmol/L [facility] Calcium [Mass/Vol] 9.3 mg/dL 8.6 - 10. 6 mg/dL [facility] Chloride [Moles/Vol] 100 mmol/L 98 - 10 7 mmol/L [facility] CO2 [Moles/Vol] 23 mmol/L 21 - 32 mmol/L [facility] Creatinine [Mass/Vol] 1.25 mg/dL 0.50 - 1.30 mg/dL [facility] GFR/1.73 sq M.predicted among non-blacks MDRD (S/P/Bld) [Vol rate/Area] 70 mL/min/{1.73_m2} - PINF [facility] Glucose [Mass/Vol] 104 mg/dL High 74 - 99 mg/dL [facility] Interpretation and review of laboratory results Abnormal [facility] Phosphate [Mass/Vol] 2.8 mg/dL 2.5 - 4 .9 mg/dL [facility] Potassium [Moles/Vol] 4.2 mmol/L 3.5 - 5.3 mmol/L [facility] Sodium [Moles/Vol] 134 mmol/L Low 136 - 145 mmol/L [facility] Urea nitrogen [Mass/Vol] 15 mg/dL 6 - 23 mg/d L [facility] CBC W Auto Differential pane l (Bld)on 11-19-2024 Basophils (Bld) [#/Vol] 0.08 10*3/uL [facility] Basophils/100 WBC (Bld) 0.7 % 0.0 - 2.0 % [facility] Eosinophils (Bld) [#/Vol] 0.43 10*3/uL [facility] Eosinophils/100 WBC (Bld) 3.6 % 0.0 - 6.0 % [facility] Erythrocyte distribution width (RBC) [Ratio] 16.4 % High 11.5 - 14.5 % [facility] Hematocrit (Bld) [Volume fraction] 29.6 % Low 41.0 - 52.0 % [facility] Hemoglobin (Bld) [Mass/Vol] 9 g/dL Low 13.5 - 17.5 g/dL [facility] Immature granulocytes (Bld) [#/Vol] 0.05 10*3/uL [facility] Immature granulocytes/100 WBC (Bld) 0.4 % 0.0 - 0.9 % [facility] Interpretation and review of laboratory results Abnormal [facility] Lymphocytes (Bld) [#/Vol] 1.78 10*3/uL [facility] Lymphocytes/100 WBC (Bld) 14.8 % 13.0 - 44.0 % [facility] MCH (RBC) [Entitic mass] 26.5 pg 26. 0 - 34.0 pg [facility] MCHC (RBC) [Mass/Vol] 30.4 g/dL Low 32.0 - 36.0 g/dL [facility] MCV (RBC) [Entitic vol] 87 fL 80 - 100 fL [facility] Monocytes (Bld) [#/Vol] 1.14 10*3/uL High [facility] Monocytes/100 WBC (Bld) 9.5 % 2.0 - 10.0 % [facility] Neutrophils (Bld) [#/Vol] 8.58 10*3/uL High [facility] Neutrophils/100 WBC (Bld) 71 % 40.0 - 80.0 % [facility] Nucleated RBC/100 WBC (Bld) [Ratio] 0 % [facility] Platelets (Bld) [#/Vol] 758 10*3/uL High [facility] RBC (Bld) [#/Vol] 3.4 10*6/uL Low [facility] WBC (Bld) [#/Vol] 12.1 10*3/uL High [facility] CT Chest and Abdomen and Pel vis W contrast Mp 11-19-2024 UH MMODAL UH MMODAL [facility] Work Phone: Radiology Study observation (narrative) [facility] Work Phone: CT Chest and Abdomen and Pel vis W contrast IVOrdered By: Ravin Hyatt on 11-19-2024 [facility] Work Phone: Dermatopathology- DERM LABOr dered By: Ashley Ramos on 11-19-2024 Laboratory comment [employer] (Report) a7glcSVuVDQpa0voKWDs bGFuZzEwMzNcZnRuYmpc fHOjJBjgqxCoSBkll0Lo A1NzSuLpFApnapIbDZYg ScmtcvtmBXKpKQZ7gyBs AAOfPBmlTGBaLIqtGq6r pBXnuXjlNkJeCKAge3cq kaCPKFoxVJKSLIh6o7ew IJRsXpN3nIFfDYogX3ud syNujVXnY2Uov5SgNCa3 eT01ZECcxC2guNGeAPqn kiZlNuK9MOluDZJoQgE1 BULalGCzGDFuI3ujPVXu XGdyZWVuMFxibHVlMCA7 cCptz3O8bEMjkAGxkIks XgPcOpZaLgPJi7MiBXm8 zYtwS9YyKGZqQeP9xPNf UGFyYWdyYXBoIEZvbnQ7 sR63TEsopxH8bKPdh6Xu f46bs862cT1vtHFyFTI8 MTIyNDBccGFwZXJoMTU4 CMPaeEPiG2dvViZoyGZq O7YsKsZcyHBdI1LuXkGv jNJcC6GgGrMotHKxXPYb sOL2CSlho933PKM9YrPe PP0kI1Egu6H2bS7jwTFs YSSeiSWpKcGyEDAswb4l yJTwHWndh2PmAVX6pwW1 pLDouXZrSNWhQQ10Iiwj m2EnEpkvRCC0RVBwvxZs h0Orx3kbPsWefgEzM6mb X8IzYUGoAABdCVXiWkAi mhZoe1Iwj0IluITsfYy9 e2hoRZZbZBDnzYfyr6rp HKF1HNLzE9W0uBTpr6in TFplFMOdsHD1vlQ1HRas TWBichP3zjF4ZJeiWYWz lBX6krH2BJhyAVWaUlB5 ofQ1WPsbODSgOPD2OxAz EHAsk4HqcwduKkKkz3El cQEvQEuwT99gr922XBFc phQdL4nckBNyxyceuMRd lkkjFSwbwiD0JPCzTCFl YWluXGYxXGZzMjBcbGFu ZzEwMzNcaGljaFxmMVxk NaJsIUAsIGnjR8tuDhYt CrKzQQZYsEJ0eGInu3gl jlI1cDVoCO3cAQHemECc ihKpd7Q2HSW2iFZxnN7b oKHfPGMcgMGzsrGijx58 tTCwqEK1VXToGKWfpJKp gN3mHKLlYZJXaF2jmTWV zjJeewVlBYJxuXiqvo9R nEBrun3asYXxY7TjgEyb aWVzIHRoYXQgdGhleSBo RBEuXLLfplsah3RlONCr pRIjU1OkPE7pMLHlzp64 [facility] Work Phone: Pathology report addendum [employer] (Spec) f8yffWZuYHJkdNDsRVcm YawlcjYmOIFwbLBbB0Fe afuiVZjbVH7sRM2drBlk vMPzeWIfSHCkLtPvg1ig d188eKWce5ebZWTKulwc yZg4pCskO73tp3B0Mndw K60oeHKtQWU3FMOvYABb hHInIKAfPDN9XUUjhFVd Y8caFHOnMJ3xwnqxIUsq IFwgRHMcpTT2QFQieBUy P7HbTAMpRIqlXAHhjrh9 AgFaEn6pnSLzrOwxSFop YXJkXHBsYWluXGZzMjAg YNMCy80jxeFWPWYuz1Ad nL8bKPCstsEjm6ubPWIp nm8dhpenkNBgRBIqlbQf eUCrzE3iXIShigJ5xC0m SQ7qYSIaoy9yT7MpezIp aCauj3WwIQGmYsHfpgP7 uZPugAgzk6V7DSRxBRYu VAGouRQuKF3gLWJvrAkw IHRvIHJldmVhbCBkZWZp nwn8dFGqDLTweJzemEEl DBXag0TfuSSjFNrqLCY8 [facility] Work Phone: Pathology report Cancer Narrative [facility] Work Phone: Pathology report final diagnosis Narrative t4cxcDPtSWTvvJXdMDcb SeaipmDeDIAgwLLvI0Is mdblECtjAE9kRY1rrYnz mYCpoZKyEJLuQeGey3rp y343jOUoh7okHXSMqqwi rAr2uKqvD23gg6M5Eaee R06thPUzSZU8DRPvWSOv dMOkETSrGWM9BMGozTDc I7lnFWPrQV0dxqktINxw IJscHJEjcLL8MNDbrVHs C5LtQLVqCYajDEPeqty5 AsHhPo5ziAGvbZivTZuc YXJkXHBsYWluXGZzMjAg QZ9mY0kFIksgKRoGE5kk NEYXRpAFCGGOC4YYTMpf bYMdIGMzDP1XXMIUNcWs X8XWND1ADTZtN4ZZAAFU IFRBGS3YCIFuSYxuwh12 GLX5c0iphWHvJIxrHqvr eWHrrwL9YVzGSZIJDRhZ KjRtRT0bRXkIH5JYTOxV JcplQVO2X3aykKO5d8yt rGPqg5o2MKpkPRM7tUfB KXl2PLUwGIbqx1wlMYFu THoqb1SpXYeMSWVCLW5T YA3jkPY9KSzBTRYGHWuq SUI0L2jiqIJ6n1lmkNQo d9s2SCcwDJZ5lXnsqTWl blxiXGZzMjAgIERJRkZF UkVOVElBVEVELCBFWFRF CsEJMojvNR5xJUjQVKOR JZQnUQ9AWXRABNNYDNDC XEfVPpISDY9QOcqVXxXx GH8nHJsBN9YhNSwOWjEE FK3LOFMRI2JKE31sQGBD ZIJAY96SPJ1SULfijWGd EBWsxqgeYWHRo28oMG83 OiBBIGRlZmluaXRpdmUg NUPaJAIsnKKbLWW1kIWa lG5fweFwjRSwuf81EHHi uTGhR9fwbAUsMVbfRISs MKFbxuKodEVgsPZdjY7l dGlvbnMuIFdoaWxlIGEg cHJpbWFyeSBjdXRhbmVv jFSnz9F2ZK6oqUOnM7Ie kIUaMBCpnO8jqFAlySYp MrN3e4RuOMbdWSFvEQWg m2QebVupYZOxaEXwx2Rw YDSvlSneY6AuI8erw63v AOZhgb7ogASdMAMoiRVx oMGuYUTvqpC2dHHpuJ9j dGlvbnMgYXZhaWxhYmxl LlxwYXJcYlxwYXJcYjAg Iz8yG8oRBeohXZUSIRPP KILPY1VXJezeDWGFN3oc QklPUFNZOlxwYXJcYiBB F1EPVJiYH2sPIOYQXYLO VX9ZTL6EZTCKIXVBQTEZ QyBJTkZJTFRSQVRFIChT TQYgC19PMVTQYPw1CDOl pnuiLLKdSwFgA76oqLXl dDogVGhlIGZpbmRpbmdz HAPlOUGek2Ccb2NhM8uq lQXvYO8jYX9wvECyJQUx ECVpVPFbcsOlWX62VMIc CZRhMTDeMCZra9KlJ6ee p05fEdN9iKVsvqM2oK8t DH4iSDRxcP1cIWHeELCx ZX5oNZKakltfYOLodEvw JMAjIRshksU5VMFrOfHo SjLdIWO5mi6hxZOkwAz3 FDTbW21mEHOpuGJeJftp VvLHVQXMBSFXMjWXL0hO LCBNRCoqXHBhclxwYXJk VTUfAAHgeOCvSVNkG03I PuFDXKSXW80ATKQPVUGG F4GZM0tKCJD2FQOfmQR0 IYSMFIRAGEyYR5RhZKKG BKDAXLUuYV2CVIfPTGPQ CAFIC91OXTZHIDIQU0WT L8nCMVhYQJTZJMCMK93F KPBQBYRWB0NQQLWWZEVY EFqHQQPHEk0CFQHFEUTG AH9IZAjWFdWfUMnATZHP KNICLUYGKiqzQAX6H3n6 RXJGMSHUKD3YEAZSA48D VYMDFAXHZ4LRSCJYIjCZ EQDFQ63LPLMBREFCA6AG H5iWTDBQCbOVXJHIJ16H GHCUMXSKH4BMMZOFZSHD TcGWFyQGJM8CMKIZQYZQ EW1BNPpKXiQiTKBIA5XQ ZpLID6qhTBSRMOEZOPAl RU5EfQ== [facility] Work Phone: Pathology report gross observation Narrative q3nppONdGNRkyLRpISzi DzuqklXcKKPsoQNzX2Du snvbZNcpLU1hPR9fuKsj yOEgqTMpZWUuUfPrk2pn f167fYOhp0ctOTPTkwej uWm3cQgjF93yf9H5Tpya G91ilYEiUOX0ARTkMQTh hERdDWYfMZP3XZZaaGKd G5yjUSYwQA0moomvVUut QDzoWNCdiRZ3QWZcuXLs A9GyJJZsQYktEVXbgbd5 InHdGc9msEJixSbgKWmn LhbgjHowx5DteAQqLAvw IDUxMDAwIFxcbmggXFx0 FACuCVmbvVGjAL6puXnm DicvzYhwh2KoqKOgNMrh EFYkJEVbROfiMHAvB8NM JUPvBhO0SZJqGiSuZDm9 ZSz0ZJ7YOvLkHOKmDqH0 ALZyDVBdVQf4NVntIT1C IDEzNzQzOTUxMTMgNTQy RanqKWg0LHQlMQfyhmKb IFxcZmwgXFxuYyBcXGZy fVxwYXJkXHBsYWluXGZz MjIgQTpccGFyXHBhcmRc f8KhUWxxhCybDIUdUeJx n0BaRHkbaKckYEVyPaYl uOxamF1qZxCdVQCLPWYx fMCbVFEdodCfe9KtNCvr kmVttfJiOTYhiGK0BFej NCBtbSBwaWVjZSBvZiBz q9twZzYaYGJzqCZtSHQa q4EjJ3T2HYQsYXrwn9jv UGCqGVngv5DtVHcELDYI XE7GVV9vpDK1DNcASUIE W2oBwRF1EoY6uBX5SP29 QOBpBBEpuMBlNXnuR066 gVLsj0hfaLTiSUmrLzgy gBRcgmZ4GCoOSDRBYEkX QiJrDT0hDPcEH1PDYqU2 VcbuYFz0RYzqiAbzPpct eiPhqICdMtGkbC4lcPbg rA4kFdRpVEVdtQ6lW66g s9GjSFORyAWytzBgbEFe uAUbhKyhNnlxoJM8CZto BnbpcQ7geNCAZKXTZtxM OotmfwKlGL2IIVZBBtIS SM75JzkgBYt4SuynsLlg HprihaDdtYCjSbTktL8a eWxpbmRyaWNhbHtcZmll iNW3DEncPeemfC6ktZKA IYIVPgoWQhfhedDuUV1L PKWGSC9TcYW5EfR8lOF6 Jv95LOYhQQOyfMIkUBnk N449XVWnSBemEFPuNaIc IGluIHNoYXBlLiAgSXQg d9CrVODkOeLmDIGrDWwb vy99IUC7i1yrfBOrLMzp HajtjYZfspJ8RSiMDPQC AKnQRkMwAQ7dXMbHM7CA RUdJTnwzODIyMHwzfDN9 l3vbxGLty7q0UBxuSCU5 iDmoYNBmxR72LIQmUEnt h7apFSNbQKaoe4SsHLuU FYIGEL3PKC0fxMK2NWqS VEVORHwzODIyMHwzfDN9 t8cimSMli8k6DHjhUWH2 sUaenFOouquwmjWuZK5a TGcceo69ZKD6x5nldHUe MOlyBdgciMQnupD6AXuM CZRMSPeTMxVmHT8iCDyD E3ETYHkQLnvkQTevHYk3 vRA7g7tgpYRqm9r8BNaq KYR6kKIvCQQxwYYkeW1s vrK5AKOrjH5mHHJzk0pu aWVsZHtcKlxmbGRpbnN0 SLzDLJRYFPxQEySdGG7e QKoWM7USDqR4Lnz7Gli4 UTl6vGkjEfjvlgNdjKHg ZwLooH2qkNxggP5mJdOv KPVqMQTnm4sqmYkzb9Gz rRVhRZ1xaRSwc3keLFNz iQShYLC9JCplnPEoAWNc MDIgXFxkYiBPVlIgIiAy SET7LJV2NiBgGLr8NMfz U2RKHSBmAMA5EUi2QqCp TnA0BNc5HKEPWq0vWHX0 JPG3XNQ8FnE2ZXK5HAXy XHQgMiBcXHNzIDMgXFxm kCXzSD1aDJggDbI5MVNg thSaz8VjJJSmTSXsC4bq PwNlITbxljUkNGQ9WWIv clxwYXJkXHNiMzBcZXBp E6ooVvGhYRMsGEmaBZJl UgEoMuRcCKs3RGKdxB9r Bf1qvLNthQ0dsNMcJRM4 EYxyICT5DTJnsE8xjUuf L7Mma4Lmw8fxhe1dLFt4 RMhyIJobvh97JLY9d7pv aWVsZHtcKlxmbGRpbnN0 NFsGIWDOBIzUDmGcCL5a YOzLM6ZTDTaJOuoiKYFv CRq7yJP5y3llkOQpq9j8 YYpsCDP9aNMgzusxJqlv sWN4FPvwFfgmgL1kaPGK LVRXMuxIAjrrvsZxGG0Q NHXLEY3AbAN1VnW6dWJ6 YJ97GRXiRHPyfXJeWClj Y035BOGwRJaoBOHsViDg GIrvXQCefO1kUjYkBWDj fUQoTGKgs6AdZ9K7KLVr RJhkf2daGAZvWQnop1Yb YJnLXJBZDW5THX8dcML1 NPwRPBYQP1yPrWG0PrU2 fAZ1Wd78AXOqDMZxzJOi KMbbR425L5zsfU1chqto BZs3AHGqCZpby8bnKWJu ZWpia9IaYHrTFSBKXG2N UH4unQZ5MZfTYJGKGCgq CUNwBAa4rME8b7gxoMKv o4o9JHikADY2jTqvoTZb blxmczIwICBpbiBzaGFw OG7iTJv8MSjqptNkhOUg ZGRlZCBccHJvdGVjdHtc TuluyWK2REsvIlnmsO6h dCBIWVBFUkxJTksgbmFt TA7DQOSSXtTSSA84Gzxh RoP1E4b2rBsrWsutsqXv rOFtWfSguB5ckiL5p6Ux r6vgoUUqBEvzAdhprKIz qsA8PNsQDKIFPOlZHqHy WD1bZFhTS0WVBbN8Arwd BhV8P6t6wDgiHgscxcVr nVCaGeImzY9ajVjqrC2f ZnMyMCAuICBccHJvdGVj wRmvJinfjHW2XLccOkba xE3dgGXNHVXPNmuZXkgx azWxHS6VPGLUYtQKFL17 Fzv7Dum5AAj0oXlzGlzi ihUlrKEdGpVyfJ6AgSDy g8EbN2fmPQ6uo5GpNRvb j9RgFfsxNbzcrLQ1SAut HuxnnC3fyZZKZSYWSmbH UyqahrDpTT6OEFWTWL2X kNQ0BGF5bIb7UQ81XWVy NJUqxILtUKbvK119WKXe YWluXGZzMjAgICBccGFy XHBhcmRccGFyXHNhMzBc VLPnM1noTCThBBPcPWZl bKRvlN0irqF4KJYnD7Ur c1MkGQWkhBQmlAUasIEf yEspBxifmWP7JXqtPpuq sA6woXGUREFIUiiBBqph uyUcFB2LVHBPViPVQE86 NNI2MvA1GHn5zTjoSspn epBakCTkXtCmwB4HADN8 jKFyYWPsmVlfjbYej4up aWVsZHtcKlxmbGRpbnN0 WBwILYLDPDxXWdZaPP2g AJxMR2CVAkM4PDF6WqT7 LPh9rCzoJmilxbAblSSx CtWhjY5xwWsggM2jTgBi HPRhMMdgYRXqK7AxE3Xo jdZ1n9tqfGbvs7XolABc FL2rtMSyTUPjY38TXcCV NRUJZ33AHODIXBSSI9OD I8yQPGZ3KpV4tXJ9AV3u ODIxOXwyPTJfMzgyMjB8 Uw1gEiE2OBN7wXM9VN1r KUMgNOp9TRZlLzolLUw1 Us5jXyW0YwJynDo7Un7s UUgtMEb7PFZkEHM5XrL1 BZ1rFQUVASUGRQfHPY5U LBRSFLPNVC7GPyKtC0tM RENBUkRfTUVUQURBVEFf ShVPQZ3vA4iSIEWZLvUr KPMGPSMKQIEgCK9QEHID PLLKUV6QCQNXA85QIQDR RPSNO7IWY0yINRByp4Kq xp2cYGNfY69oe6B0Tpty AZbjrILrz1Pnfx6pAICc j8rmdEP1UpbgEZzunBZb t3Elgx5cPRQkSL4iZNLo ILX8RgjuNeVxiJPgw5Xn wk1dLYVppH4wGqN4LXN1 IH25YJhaBXAtbDI3wEMl yB4yRjE9CzV0DF38NQyk IPXwjRD0mBWkEENqWnT0 OnO0ZX16NJdaOGYtpXE9 iUTbAlHfQNUjFcU7DtSt FC83BPcgEALnbNP2nGck qcedOJnqGHt6RAm4ZCXi tOPbuJndoa7cg3HyAmHn XHwsQE1yJYwLD8RRF4aV GCFvRTNRUPZLDYNgVD6S JChJAE2ULMWgXOWUXRHA SBCaUyNRRK4eQIaDPB0T UPSfCARHDAFFJCTlTX3E HIJAPD9JROWHXFHVG78W AJQVHYGAG2MDI6sDUNBP NIYNMuATWuAYFP9HQVKX RKMSBT6XOwA2 [facility] Work Phone: Pathology report microscopic observation Narrative Other stain h8ckzDYeGCZxbODuVDtf TvzxuvKnSNHpiBDaB5Ed phlfFTilVM5bPD4cbFnq yIPzkNHsBUQnEhLil4tp z992kWNsa0pjPJTVjbel pFo8cWfgK71pq4B1Agzi P73ebYIcMTC2GUWkVVLy zPMpOEUgMFV6ASBwhRFu H1ioQEFsAL5nlwgkMQxt FQzaTMKljUB4BFFooMVz D3CeCRSlGMjqKUPwvkk4 NtNfCf2rbNTluNrrIWlu YXJkXHBsYWluXGZzMjAg FU6kOYjxEPR1ekVsGAHo h1DeaUAiXQSdYBqaBJGt znMohw4ncUDeoEsexCBr sQLbMOWbcCggz7M6dOMv rKErRJ1rkjB9rDKaWSpw ZEPmiRFfqYBijLejv54n CP94K0gvENYqhFaxg55k zeIonAHmGEIxbpAcp3Xb PHVesxm7BCMdk18aRIBt anniEDNeEj7dYPluUMgj fRR8v6y5aTgmCCKiQNKD v6ZzcmXtaDZjhpYmEYCm X3Yyc31fVK1yWIYsVCLa lX4dvQPlaM9zz9bmk5Tm M0pfMH3ucbU7HYXcSQUj gRMouj2xpVXtK8RdjQaz h1ixFHkxmUyrSTJyZA27 ibHxLHSucQF2XUVeOo0w cWhnfAvqwmKpm7XgXB7j VGhlcmUgaXMgYSByZWxh dGb9FZl2SXDmjuZjNUQv vUNyeevaMmIko7drfTW9 yG1uKSOyR0JcwADbpN0n mF3yYJnpzbZphGMjd9Sq ESYflOQzAVukhR9zHXZj rPAuodEbl75yuhXakYw3 USPhayd4OOSceDwzhwQq oC3iiV6euTIamKGnfKPk YyBpbmZpbHRyYXRlIGFu ZCBtaWxkIGRlZXAgZmli jv5imMCya1q9jICiv2Na nKOxGTuyf8W0kPMzGLZy f3EipU7bkJTcDLIjqhxe YXJ9 [facility] Work Phone: Pathology report relevant history Narrative r8vxkKEaMFJhrUEeXKae JyujmuBvACFwjIUyG4Vj yvsqQHwlVB3mIK4gdQln zFLlnNQoYNMeOlDhl4hd n923jXNlb1vmJACIwaec rVd5u7paFKFWRMorVLWJ JCq1kYfqL83ak7C0Bddx O2ivOHNyWMaeBRLpHWar cNWzENa8NIQnmBPyorSl XrHpAGMbnLByuGV0PZFk DS7wquaoQVltOVahTHUq odV2QBHifJSvS0JtBVYz ZI6yqtgiNTJ7WLkmOYFy VMT4DsXpNQVid5Sdujk5 MjBccGFyZFxwbGFpblxm UHwmouEbLDJjWXIXER6d c9Zzd16jIQigW87rw9il BqMSaUQ9KKQrUSUqo8Yo n8RmXWEzUfMdDTChlkyd ZJMtwJStPVQeuS0mA4Zk ZJkeg9PcpaqkE6AkM5ux mGLFLDK9WLO0XkXEoJK1 aXRoIGxvbmdzdGFuZGlu NrErbOCcOWQavts8zZAy a3EgdLrsCCN5iQMwK9fp IHdpdGggYSBuZXcsIGZp wi5xIVOmpXhoYB2mw7Nz yJbgpFCjcj9hUFFghiDa SKU3GL4lbmZiOBzxsOoo CWk4wnGbLBElMSvvWFNr IHdlbGwgYXMgYSBjaHJv fgkaNBLvJ7GzPP5rBTqi HqBeMcB2xM9fg3Rvg0e6 fOOnazZ5buM4MOVhQz5i GMQqJKImbMuqK4soi63n YoLBIzL5gd8uGOScpx2m eO0ushA7fPBfsd7umASy cK68oyDnQZjoATAocrYw ut6oZVhvKJY0 [facility] Work Phone: [facility] Work Phone: Magnesiumon 11-19-2024 Magnesium [Mass/Vol] 2.06 mg/dL 1.60 - 2.40 mg/dL [facility] Magnesium [Mass/Vol]on 11-19 Interpretation and review of laboratory results Normal [facility] No Panel Informationon 11-19 [facility] Renal function 2000 panelon 11-19-2024 Albumin BCP dye [Mass/Vol] 3.4 g/dL 3.4 - 5.0 g/dL [facility] Anion gap [Moles/Vol] 14 mmol/L 10 - 2 0 mmol/L [facility] Calcium [Mass/Vol] 9.5 mg/dL 8.6 - 10. 6 mg/dL [facility] Chloride [Moles/Vol] 99 mmol/L 98 - 10 7 mmol/L [facility] CO2 [Moles/Vol] 25 mmol/L 21 - 32 mmol/L [facility] Creatinine [Mass/Vol] 1.15 mg/dL 0.50 - 1.30 mg/dL [facility] GFR/1.73 sq M.predicted among non-blacks MDRD (S/P/Bld) [Vol rate/Area] 77 mL/min/{1.73_m2} - PINF [facility] Glucose [Mass/Vol] 105 mg/dL High 74 - 99 [facility]ation and review of laboratory results Abnormal [facility] Phosphate [Mass/Vol] 2.8 mg/dL 2.5 - 4 .9 mg/dL [facility] Potassium [Moles/Vol] 3.9 mmol/L 3.5 - 5.3 mmol/L [facility] Sodium [Moles/Vol] 134 mmol/L Low 136 - 145 mmol/L [facility] Urea nitrogen [Mass/Vol] 15 mg/dL 6 - 23 mg/d L [facility] CBC W Auto Differential pane l (Bld)on 11-18-2024 Basophils (Bld) [#/Vol] 0.07 10*3/uL [facility] Basophils/100 WBC (Bld) 0.6 % 0.0 - 2.0 % [facility] Eosinophils (Bld) [#/Vol] 0.4 10*3/uL [facility] Eosinophils/100 WBC (Bld) 3.2 % 0.0 - 6.0 % [facility] Erythrocyte distribution width (RBC) [Ratio] 16.6 % High 11.5 - 14.5 % [facility] Hematocrit (Bld) [Volume fraction] 29.9 % Low 41.0 - 52.0 % [facility] Hemoglobin (Bld) [Mass/Vol] 9 g/dL Low 13.5 - 17.5 g/dL [facility] Immature granulocytes (Bld) [#/Vol] 0.04 10*3/uL [facility] Immature granulocytes/100 WBC (Bld) 0.3 % 0.0 - 0.9 % [facility] Interpretation and review of laboratory results Abnormal [facility] Lymphocytes (Bld) [#/Vol] 1.69 10*3/uL [facility] Lymphocytes/100 WBC (Bld) 13.7 % 13.0 - 44.0 % [facility] MCH (RBC) [Entitic mass] 26.9 pg 26. 0 - 34.0 pg [facility] MCHC (RBC) [Mass/Vol] 30.1 g/dL Low 32.0 - 36.0 g/dL [facility] MCV (RBC) [Entitic vol] 89 fL 80 - 100 fL [facility] Monocytes (Bld) [#/Vol] 0.82 10*3/uL [facility] Monocytes/100 WBC (Bld) 6.7 % 2.0 - 10.0 % [facility] Neutrophils (Bld) [#/Vol] 9.3 10*3/uL High [facility] Neutrophils/100 WBC (Bld) 75.5 % 40.0 - 80.0 % [facility] Nucleated RBC/100 WBC (Bld) [Ratio] 0 % [facility] Platelets (Bld) [#/Vol] 785 10*3/uL High [facility] RBC (Bld) [#/Vol] 3.35 10*6/uL Low [facility] WBC (Bld) [#/Vol] 12.3 10*3/uL High [facility] Magnesiumon 11-18-2024 Magnesium [Mass/Vol] 2.19 mg/dL 1.60 - 2.40 mg/dL [facility] Magnesium [Mass/Vol]on 11-18 Interpretation and review of laboratory results Normal [facility] No Panel Informationon 11-18 [facility] Renal function 2000 panelon 11-18-2024 Albumin BCP dye [Mass/Vol] 3.5 g/dL 3.4 - 5.0 g/dL [facility] Anion gap [Moles/Vol] 15 mmol/L 10 - 2 0 mmol/L [facility] Calcium [Mass/Vol] 9.9 mg/dL 8.6 - 10. 6 mg/dL [facility] Chloride [Moles/Vol] 99 mmol/L 98 - 10 7 mmol/L [facility] CO2 [Moles/Vol] 26 mmol/L 21 - 32 mmol/L [facility] Creatinine [Mass/Vol] 1.22 mg/dL 0.50 - 1.30 mg/dL [facility] GFR/1.73 sq M.predicted among non-blacks MDRD (S/P/Bld) [Vol rate/Area] 72 mL/min/{1.73_m2} - PINF [facility] Glucose [Mass/Vol] 91 mg/dL 74 - 99 mg/dL [facility] Interpretation and review of laboratory results Abnormal [facility] Phosphate [Mass/Vol] 2.7 mg/dL 2.5 - 4 .9 mg/dL [facility] Potassium [Moles/Vol] 4.5 mmol/L 3.5 - 5.3 mmol/L [facility] Sodium [Moles/Vol] 135 mmol/L Low 136 - 145 mmol/L [facility] Urea nitrogen [Mass/Vol] 14 mg/dL 6 - 23 mg/d L [facility] Basic metabolic 2000 panelon 11-17-2024 Anion gap [Moles/Vol] 14 mmol/L 10 - 2 0 mmol/L [facility] Calcium [Mass/Vol] 9.3 mg/dL 8.6 - 10. 6 mg/dL [facility] Chloride [Moles/Vol] 100 mmol/L 98 - 10 7 mmol/L [facility] CO2 [Moles/Vol] 24 mmol/L 21 - 32 mmol/L [facility] Creatinine [Mass/Vol] 1.28 mg/dL 0.50 - 1.30 mg/dL [facility] GFR/1.73 sq M.predicted among non-blacks MDRD (S/P/Bld) [Vol rate/Area] 68 mL/min/{1.73_m2} - PINF [facility] Glucose [Mass/Vol] 95 mg/dL 74 - 99 mg/dL [facility] Potassium [Moles/Vol] 4 mmol/L 3.5 - 5.3 mmol/L [facility] Sodium [Moles/Vol] 134 mmol/L Low 136 - 145 mmol/L [facility] Urea nitrogen [Mass/Vol] 13 mg/dL 6 - 23 mg/d L [facility] CBC W Auto Differential pane l (Bld)on 11-17-2024 Basophils (Bld) [#/Vol] 0.06 10*3/uL [facility] Basophils/100 WBC (Bld) 0.5 % 0.0 - 2.0 % [facility] Eosinophils (Bld) [#/Vol] 0.4 10*3/uL [facility] Eosinophils/100 WBC (Bld) 3.6 % 0.0 - 6.0 % [facility] Erythrocyte distribution width (RBC) [Ratio] 16.8 % High 11.5 - 14.5 % [facility] Hematocrit (Bld) [Volume fraction] 26.6 % Low 41.0 - 52.0 % [facility] Hemoglobin (Bld) [Mass/Vol] 8.3 g/dL Low 13.5 - 17.5 g/dL [facility] Immature granulocytes (Bld) [#/Vol] 0.04 10*3/uL [facility] Immature granulocytes/100 WBC (Bld) 0.4 % 0.0 - 0.9 % [facility] Interpretation and review of laboratory results Abnormal [facility] Lymphocytes (Bld) [#/Vol] 2.08 10*3/uL [facility] Lymphocytes/100 WBC (Bld) 19 % 13.0 - 44.0 % [facility] MCH (RBC) [Entitic mass] 26.8 pg 26. 0 - 34.0 pg [facility] MCHC (RBC) [Mass/Vol] 31.2 g/dL Low 32.0 - 36.0 g/dL [facility] MCV (RBC) [Entitic vol] 86 fL 80 - 100 fL [facility] Monocytes (Bld) [#/Vol] 1.09 10*3/uL High [facility] Monocytes/100 WBC (Bld) 9.9 % 2.0 - 10.0 % [facility] Neutrophils (Bld) [#/Vol] 7.3 10*3/uL [facility] Neutrophils/100 WBC (Bld) 66.6 % 40.0 - 80.0 % [facility] Nucleated RBC/100 WBC (Bld) [Ratio] 0 % [facility] Platelets (Bld) [#/Vol] 639 10*3/uL High [facility] RBC (Bld) [#/Vol] 3.1 10*6/uL Low [facility] WBC (Bld) [#/Vol] 11 10*3/uL [facility] Hepatic function 2000 panelo n 11-17-2024 Albumin BCP dye [Mass/Vol] 3.2 g/dL Low 3.4 - 5.0 g/dL [facility] ALP [Catalytic activity/Vol] 83 U/L 33 - 120 U/L [facility] ALT With P-5'-P [Catalytic activity/Vol] 20 U/L 10 - 52 U/L [facility] AST With P-5'-P [Catalytic activity/Vol] 13 U/L 9 - 39 U/L [facility] Bilirubin [Mass/Vol] 0.3 mg/dL 0.0 - 1 .2 mg/dL [facility] Bilirubin.direct [Mass/Vol] 0 mg/dL 0.0 - 0.3 mg/dL [facility] Protein [Mass/Vol] 7.2 g/dL 6.4 - 8.2 g/dL [facility] Magnesiumon 11-17-2024 Magnesium [Mass/Vol] 2.17 mg/dL 1.60 - 2.40 mg/dL [facility] No Panel Informationon 11-17 Interpretation and review of laboratory results Abnormal [facility] Interpretation and review of laboratory results Normal [facility] Phosphoruson 11-17-2024 Phosphate [Mass/Vol] 3.2 mg/dL 2.5 - 4 .9 mg/dL [facility] Basic metabolic 2000 panelon 11-16-2024 Anion gap [Moles/Vol] 15 mmol/L 10 - 2 0 mmol/L [facility] Calcium [Mass/Vol] 9.2 mg/dL 8.6 - 10. 6 mg/dL [facility] Chloride [Moles/Vol] 103 mmol/L 98 - 10 7 mmol/L [facility] CO2 [Moles/Vol] 22 mmol/L 21 - 32 mmol/L [facility] Creatinine [Mass/Vol] 1.25 mg/dL 0.50 - 1.30 mg/dL [facility] GFR/1.73 sq M.predicted among non-blacks MDRD (S/P/Bld) [Vol rate/Area] 70 mL/min/{1.73_m2} - PINF [facility] Glucose [Mass/Vol] 115 mg/dL High 74 - 99 mg/dL [facility] Interpretation and review of laboratory results Abnormal [facility] Potassium [Moles/Vol] 3.7 mmol/L 3.5 - 5.3 mmol/L [facility] Sodium [Moles/Vol] 136 mmol/L 136 - 145 mmol/L [facility] Urea nitrogen [Mass/Vol] 13 mg/dL 6 - 23 mg/d L [facility] CBC W Auto Differential pane l (Bld)on 11-16-2024 Erythrocyte distribution width (RBC) [Ratio] 16.5 % High 11.5 - 14.5 % [facility] Hematocrit (Bld) [Volume fraction] 26.1 % Low 41.0 - 52.0 % [facility] Hemoglobin (Bld) [Mass/Vol] 8.5 g/dL Low 13.5 - 17.5 g/dL [facility] Immature granulocytes (Bld) [#/Vol] 0.05 10*3/uL [facility] Immature granulocytes/100 WBC (Bld) 0.5 % 0.0 - 0.9 % [facility] MCH (RBC) [Entitic mass] 28.4 pg 26. 0 - 34.0 pg [facility] MCHC (RBC) [Mass/Vol] 32.6 g/dL 32.0 - 36.0 g/dL [facility] MCV (RBC) [Entitic vol] 87 fL 80 - 100 fL [facility] Nucleated RBC/100 WBC (Bld) [Ratio] 0 % [facility] Platelets (Bld) [#/Vol] 619 10*3/uL High [facility] RBC (Bld) [#/Vol] 2.99 10*6/uL Low [facility] WBC (Bld) [#/Vol] 10 10*3/uL [facility] Hepatic function 2000 panelo n 11-16-2024 Albumin BCP dye [Mass/Vol] 3 g/dL Low 3.4 - 5.0 g/dL [facility] ALP [Catalytic activity/Vol] 78 U/L 33 - 120 U/L [facility] ALT With P-5'-P [Catalytic activity/Vol] 17 U/L 10 - 52 U/L [facility] AST With P-5'-P [Catalytic activity/Vol] 11 U/L 9 - 39 U/L [facility] Bilirubin [Mass/Vol] 0.2 mg/dL 0.0 - 1 .2 mg/dL [facility] Bilirubin.direct [Mass/Vol] 0 mg/dL 0.0 - 0.3 mg/dL [facility] Interpretation and review of laboratory results Abnormal [facility] Protein [Mass/Vol] 6.5 g/dL 6.4 - 8.2 g/dL [facility] Magnesiumon 11-16-2024 Magnesium [Mass/Vol] 2.08 mg/dL 1.60 - 2.40 mg/dL [facility] Manual differential performe d Ql (Bld)on 11-16-2024 Basophils (Bld) [#/Vol] 0 10*3/uL U [facility] Basophils/100 WBC (Bld) 0 % 0.0 - 2.0 % [facility] Cells Counted Total (Bld) [#] 113 {cells} [facility] Eosinophils (Bld) [#/Vol] 0.26 10*3/uL [facility] Eosinophils/100 WBC (Bld) 2.6 % 0.0 - 6.0 % [facility] Lymphocytes (Bld) [#/Vol] 1.68 10*3/uL [facility] Lymphocytes/100 WBC (Bld) 16.8 % 13.0 - 44.0 % [facility] Monocytes (Bld) [#/Vol] 0.27 10*3/uL [facility] Monocytes/100 WBC (Bld) 2.7 % 2.0 - 10.0 % [facility] RBC morphology finding Nom (Bld) No significant RBC morphology present [facility] Segmented neutrophils (Bld) [#/Vol] 7.79 10*3/uL High [facility] Segmented neutrophils/100 WBC (Bld) 77.9 % 40.0 - 80.0 % [facility] No Panel Informationon 11-16 Interpretation and review of laboratory results Abnormal [facility] Interpretation and review of laboratory results Normal [facility] Phosphoruson 11-16-2024 Phosphate [Mass/Vol] 2.9 mg/dL 2.5 - 4 .9 mg/dL [facility] Bacteria identified Cx Nom ( Unsp spec)Ordered By: Phil Casas on 11-15-2024 Interpretation and review of laboratory results Abnormal [facility] Microscopic observation Gram stain Nom (Unsp spec) No polymorphonuclear leukocytes seen [facility] Microscopic observation Gram stain Nom (Unsp spec) No organisms seen [facility] Biopsyon 11-15-2024 [facility] Work Phone: [facility] Work Phone: CBC W Auto Differential pane l (Bld)on 11-15-2024 Basophils (Bld) [#/Vol] 0.06 10*3/uL [facility] Basophils/100 WBC (Bld) 0.6 % 0.0 - 2.0 % [facility] Eosinophils (Bld) [#/Vol] 0.28 10*3/uL [facility] Eosinophils/100 WBC (Bld) 2.6 % 0.0 - 6.0 % [facility] Erythrocyte distribution width (RBC) [Ratio] 16.4 % High 11.5 - 14.5 % [facility] Hematocrit (Bld) [Volume fraction] 24.9 % Low 41.0 - 52.0 % [facility] Hemoglobin (Bld) [Mass/Vol] 8.1 g/dL Low 13.5 - 17.5 g/dL [facility] Immature granulocytes (Bld) [#/Vol] 0.04 10*3/uL [facility] Immature granulocytes/100 WBC (Bld) 0.4 % 0.0 - 0.9 % [facility] Interpretation and review of laboratory results Abnormal [facility] Lymphocytes (Bld) [#/Vol] 1.3 10*3/uL [facility] Lymphocytes/100 WBC (Bld) 12.2 % 13.0 - 44.0 % [facility] MCH (RBC) [Entitic mass] 26.6 pg 26. 0 - 34.0 pg [facility] MCHC (RBC) [Mass/Vol] 32.5 g/dL 32.0 - 36.0 g/dL [facility] MCV (RBC) [Entitic vol] 82 fL 80 - 100 fL [facility] Monocytes (Bld) [#/Vol] 1.04 10*3/uL High [facility] Monocytes/100 WBC (Bld) 9.7 % 2.0 - 10.0 % [facility] Neutrophils (Bld) [#/Vol] 7.95 10*3/uL High [facility] Neutrophils/100 WBC (Bld) 74.5 % 40.0 - 80.0 % [facility] Nucleated RBC/100 WBC (Bld) [Ratio] 0 % [facility] Platelets (Bld) [#/Vol] 531 10*3/uL High [facility] RBC (Bld) [#/Vol] 3.04 10*6/uL Low [facility] WBC (Bld) [#/Vol] 10.7 10*3/uL [facility] Hepatic function 2000 panelo n 11-15-2024 Albumin BCP dye [Mass/Vol] 3 g/dL Low 3.4 - 5.0 g/dL [facility] ALP [Catalytic activity/Vol] 80 U/L 33 - 120 U/L [facility] ALT With P-5'-P [Catalytic activity/Vol] 21 U/L 10 - 52 U/L [facility] AST With P-5'-P [Catalytic activity/Vol] 18 U/L 9 - 39 U/L [facility] Bilirubin [Mass/Vol] 0.2 mg/dL 0.0 - 1 .2 mg/dL [facility] Bilirubin.direct [Mass/Vol] 0 mg/dL 0.0 - 0.3 mg/dL [facility] Interpretation and review of laboratory results Abnormal [facility] Protein [Mass/Vol] 6.3 g/dL Low 6.4 - 8.2 g/dL [facility] Magnesiumon 11-15-2024 Magnesium [Mass/Vol] 1.93 mg/dL 1.60 - 2.40 mg/dL [facility] Magnesium [Mass/Vol]on 11-15 Interpretation and review of laboratory results Normal [facility] No Panel Informationon 11-15 [facility] Renal function 2000 panelon 11-15-2024 Albumin BCP dye [Mass/Vol] 2.9 g/dL Low 3.4 - 5.0 g/dL [facility] Anion gap [Moles/Vol] 13 mmol/L 10 - 2 0 mmol/L [facility] Calcium [Mass/Vol] 9.4 mg/dL 8.6 - 10. 6 mg/dL [facility] Chloride [Moles/Vol] 105 mmol/L 98 - 10 7 mmol/L [facility] CO2 [Moles/Vol] 24 mmol/L 21 - 32 mmol/L [facility] Creatinine [Mass/Vol] 1.4 mg/dL High 0.50 - 1.30 mg/dL [facility] GFR/1.73 sq M.predicted among non-blacks MDRD (S/P/Bld) [Vol rate/Area] 61 mL/min/{1.73_m2} - PINF [facility] Glucose [Mass/Vol] 116 mg/dL High 74 - 99 [facility] and review of laboratory results Abnormal [facility] Phosphate [Mass/Vol] 2.5 mg/dL 2.5 - 4 .9 mg/dL [facility] Potassium [Moles/Vol] 3.7 mmol/L 3.5 - 5.3 mmol/L [facility] Sodium [Moles/Vol] 138 mmol/L 136 - 145 mmol/L [facility] Urea nitrogen [Mass/Vol] 10 mg/dL 6 - 23 mg/d L [facility] Tissue/Wound Culture/SmearOr dered By: Phil Casas on 11-15-2024 Bacteria identified Cx Nom (Unsp spec) (1+) Rare Proteus mirabilis Abnormal [facility] Bacteria identified Cx Nom ( Bld)on 11-14-2024 Interpretation and review of laboratory results Normal [facility] Blood Cultureon 11-14-2024 Bacteria identified Cx Nom (Bld) No growth at 4 days - FINAL REPORT [facility] CBC W Auto Differential pane l (Bld)on 11-14-2024 Basophils (Bld) [#/Vol] 0.06 10*3/uL [facility] Basophils/100 WBC (Bld) 0.6 % 0.0 - 2.0 % [facility] Eosinophils (Bld) [#/Vol] 0.4 10*3/uL [facility] Eosinophils/100 WBC (Bld) 4.3 % 0.0 - 6.0 % [facility] Erythrocyte distribution width (RBC) [Ratio] 16.5 % High 11.5 - 14.5 % [facility] Hematocrit (Bld) [Volume fraction] 24.1 % Low 41.0 - 52.0 % [facility] Hemoglobin (Bld) [Mass/Vol] 7.7 g/dL Low 13.5 - 17.5 g/dL [facility] Immature granulocytes (Bld) [#/Vol] 0.05 10*3/uL [facility] Immature granulocytes/100 WBC (Bld) 0.5 % 0.0 - 0.9 % [facility] Interpretation and review of laboratory results Abnormal [facility] Lymphocytes (Bld) [#/Vol] 1.02 10*3/uL Low [facility] Lymphocytes/100 WBC (Bld) 11 % 13.0 - 44.0 % [facility] MCH (RBC) [Entitic mass] 27.6 pg 26. 0 - 34.0 pg [facility] MCHC (RBC) [Mass/Vol] 32 g/dL 32.0 - 36.0 g/dL [facility] MCV (RBC) [Entitic vol] 86 fL 80 - 100 fL [facility] Monocytes (Bld) [#/Vol] 1.05 10*3/uL High [facility] Monocytes/100 WBC (Bld) 11.4 % 2.0 - 10.0 % [facility] Neutrophils (Bld) [#/Vol] 6.67 10*3/uL [facility] Neutrophils/100 WBC (Bld) 72.2 % 40.0 - 80.0 % [facility] Nucleated RBC/100 WBC (Bld) [Ratio] 0 % [facility] Platelets (Bld) [#/Vol] 507 10*3/uL High [facility] RBC (Bld) [#/Vol] 2.79 10*6/uL Low [facility] WBC (Bld) [#/Vol] 9.3 10*3/uL [facility] Calcium (24H U) [Mass/Time]o n 11-14-2024 Calcium, 24 Hour Urine 384 High Un [facility] Collection duration (Unsp spec) 24 hrs [facility] Creatinine (24H U) [Mass/Time] 1.62 [facility] Creatinine (24H U) [Mass/Vol] 52.3 mg/dL 20.0 - 370.0 mg/dL [facility] Interpretation and review of laboratory results Abnormal [facility] Specimen volume (24H U) 3.1 L U [facility] Calcium, 24 Hour Urineon Calcium (24H U) [Mass/Time] 12.4 mg/dL [facility] Cobalamin (Vitamin B12) [Mas s/Vol]on 11-14-2024 Interpretation and review of laboratory results Normal [facility] Comprehensive metabolic 2000 panelon 11-14-2024 Albumin BCP dye [Mass/Vol] 2.7 g/dL Low 3.4 - 5.0 g/dL [facility] ALP [Catalytic activity/Vol] 80 U/L 33 - 120 U/L [facility] ALT With P-5'-P [Catalytic activity/Vol] 17 U/L 10 - 52 U/L [facility] Anion gap [Moles/Vol] 13 mmol/L 10 - 2 0 mmol/L [facility] AST With P-5'-P [Catalytic activity/Vol] 15 U/L 9 - 39 U/L [facility] Bilirubin [Mass/Vol] 0.3 mg/dL 0.0 - 1 .2 mg/dL [facility] Calcium [Mass/Vol] 9.1 mg/dL 8.6 - 10. 6 mg/dL [facility] Chloride [Moles/Vol] 107 mmol/L 98 - 10 7 mmol/L [facility] CO2 [Moles/Vol] 22 mmol/L 21 - 32 mmol/L [facility] Creatinine [Mass/Vol] 1.38 mg/dL High 0.50 - 1.30 mg/dL [facility] GFR/1.73 sq M.predicted among non-blacks MDRD (S/P/Bld) [Vol rate/Area] 62 mL/min/{1.73_m2} - PINF [facility] Glucose [Mass/Vol] 97 mg/dL 74 - 99 mg/dL [facility] Interpretation and review of laboratory results Abnormal [facility] Potassium [Moles/Vol] 3.8 mmol/L 3.5 - 5.3 mmol/L [facility] Protein [Mass/Vol] 5.9 g/dL Low 6.4 - 8.2 g/dL [facility] Sodium [Moles/Vol] 138 mmol/L 136 - 145 mmol/L [facility] Urea nitrogen [Mass/Vol] 8 mg/dL 6 - 23 mg/d L [facility] Folateon 11-14-2024 Folate [Mass/Vol] 4.6 ng/mL Low 5.0 - PINF ng/mL [facility] Folate [Mass/Vol]on 11-14-19 Interpretation and review of laboratory results Abnormal [facility] IgAon 11-14-2024 IgA [Mass/Vol] 503 mg/dL High 70 - 400 mg/dL [facility] Work Phone: IgA [Mass/Vol]on 11-14-2024 Interpretation and review of laboratory results Abnormal [facility] Work Phone: [facility] Work Phone: [phone] IgGOrdered By: Ruba guy on 11-14-2024 IgG [Mass/Vol] 1160 mg/dL 700 - 1600 mg/dL [facility] IgG [Mass/Vol]Ordered By: Nik Abel on 11-14-2024 Interpretation and review of laboratory results Normal [facility] IgMon 11-14-2024 IgM [Mass/Vol] 60 mg/dL 40 - 230 mg/dL [facility] Work Phone: IgM [Mass/Vol]on 11-14-2024 Interpretation and review of laboratory results Normal [facility] Work Phone: [facility] Work Phone: M. tuberculosis stim IFN-g a nd spot count panel (Bld)on 11-14-2024 Gamma interferon negative control spot count (Bld) [#] Passed [facility] M. tuberculosis stim IFN-g CFP10 Ag spot count (Bld) [#] 4 [facility] M. tuberculosis stim IFN-g ESAT-6 Ag spot count (Bld) [#] 0 [facility] M. tuberculosis stim IFN-g Ql (Bld) [Interp] Negative Negative [facility] Mitogen stimulated gamma interferon positive control spot count (Bld) [#] Passed [facility] Magnesiumon 11-14-2024 Magnesium [Mass/Vol] 1.78 mg/dL 1.60 - 2.40 mg/dL [facility] Magnesium [Mass/Vol]on 11-14 Interpretation and review of laboratory results Normal [facility] No Panel Informationon 11-14 [facility] PTH-Related Peptideon 2024 Parathyrin related protein [Moles/Vol] 12 pmol/L High < or = 4.2 [facility] Parathyrin related protein [ Moles/Vol]on 11-14-2024 Interpretation and review of laboratory results Abnormal [facility] Pathologist review Pathologi st comment (Bld) [Interp]Ordered By: Jose C Hensley on 11-14-2024 Pathologist Review-CBC Differential Thrombocytosis favor reactive. Anemia with no specific morphologic findings. [facility] Work Phone: [facility] Work Phone: Vitamin B12on 11-14-2024 Cobalamin (Vitamin B12) [Mass/Vol] 328 pg/mL 211 - 911 pg/mL [facility] 1,25-dihydroxyvitamin D3 [Ma ss/Vol]on 11-13-2024 1,25-dihydroxyvitamin D [Mass/Vol] 35.9 pg/mL 19.9 - 79.3 pg/mL [facility] Blood type and Indirect anti body screen panel (Bld)on 11-13-2024 [facility]BO group [facility]Bld[facility] antibody screen Ql Negative [facility] D Ag Ql (Bld) Positive [facility] CBC W Auto Differential pane l (Bld)Ordered By: Seble Tate on 11-13-2024 Basophils (Bld) [#/Vol] 0.02 10*3/uL [facility] Basophils/100 WBC (Bld) 0.4 % 0.0 - 2.0 % [facility] Eosinophils (Bld) [#/Vol] 0.2 10*3/uL [facility] Eosinophils/100 WBC (Bld) 3.6 % 0.0 - 6.0 % [facility] Erythrocyte distribution width (RBC) [Ratio] 16.7 % High 11.5 - 14.5 % [facility] Hematocrit (Bld) [Volume fraction] 16 % Low 41.0 - 52.0 % [facility] Hemoglobin (Bld) [Mass/Vol] 4.9 g/dL Critically low 13.5 - 17.5 g/dL [facility] Immature granulocytes (Bld) [#/Vol] 0.01 10*3/uL [facility] Immature granulocytes/100 WBC (Bld) 0.2 % 0.0 - 0.9 % [facility] Interpretation and review of laboratory results Abnormal [facility] Lymphocytes (Bld) [#/Vol] 0.4 10*3/uL Low [facility] Lymphocytes/100 WBC (Bld) 7.1 % 13.0 - 44.0 % [facility] MCH (RBC) [Entitic mass] 28.3 pg 26. 0 - 34.0 pg [facility] MCHC (RBC) [Mass/Vol] 30.6 g/dL Low 32.0 - 36.0 g/dL [facility] MCV (RBC) [Entitic vol] 93 fL 80 - 100 fL [facility] Monocytes (Bld) [#/Vol] 0.55 10*3/uL [facility] Monocytes/100 WBC (Bld) 9.8 % 2.0 - 10.0 % [facility] Neutrophils (Bld) [#/Vol] 4.44 10*3/uL [facility] Neutrophils/100 WBC (Bld) 78.9 % 40.0 - 80.0 % [facility] Nucleated RBC/100 WBC (Bld) [Ratio] 0 % [facility] Platelets (Bld) [#/Vol] 306 10*3/uL [facility] RBC (Bld) [#/Vol] 1.73 10*6/uL [facility] WBC (Bld) [#/Vol] 5.6 10*3/uL [facility] CBC W Auto Differential pane l (Bld)on 11-13-2024 Basophils (Bld) [#/Vol] 0.07 10*3/uL [facility] Basophils/100 WBC (Bld) 0.6 % 0.0 - 2.0 % [facility] Eosinophils (Bld) [#/Vol] 0.44 10*3/uL [facility] Eosinophils/100 WBC (Bld) 3.9 % 0.0 - 6.0 % [facility] Erythrocyte distribution width (RBC) [Ratio] 16.6 % High 11.5 - 14.5 % [facility] Hematocrit (Bld) [Volume fraction] 26.2 % Low 41.0 - 52.0 % [facility] Hemoglobin (Bld) [Mass/Vol] 8.3 g/dL Low 13.5 - 17.5 g/dL [facility] Immature granulocytes (Bld) [#/Vol] 0.11 10*3/uL [facility] Immature granulocytes/100 WBC (Bld) 1 % High 0.0 - 0.9 % [facility] Interpretation and review of laboratory results Abnormal [facility] Lymphocytes (Bld) [#/Vol] 1.43 10*3/uL [facility] Lymphocytes/100 WBC (Bld) 12.8 % 13.0 - 44.0 % [facility] MCH (RBC) [Entitic mass] 27.9 pg 26. 0 - 34.0 pg [facility] MCHC (RBC) [Mass/Vol] 31.7 g/dL Low 32.0 - 36.0 g/dL [facility] MCV (RBC) [Entitic vol] 88 fL 80 - 100 fL [facility] Monocytes (Bld) [#/Vol] 1.07 10*3/uL High [facility] Monocytes/100 WBC (Bld) 9.6 % 2.0 - 10.0 % [facility] Neutrophils (Bld) [#/Vol] 8.02 10*3/uL High [facility] Neutrophils/100 WBC (Bld) 72.1 % 40.0 - 80.0 % [facility] Nucleated RBC/100 WBC (Bld) [Ratio] 0 % [facility] Platelets (Bld) [#/Vol] 576 10*3/uL High [facility] RBC (Bld) [#/Vol] 2.97 10*6/uL Low [facility] WBC (Bld) [#/Vol] 11.1 10*3/uL [facility] CBC panel Auto (Bld)on 11-13 Erythrocyte distribution width (RBC) [Ratio] 16.4 % High 11.5 - 14.5 % [facility] Hematocrit (Bld) [Volume fraction] 25.5 % Low 41.0 - 52.0 % [facility] Hemoglobin (Bld) [Mass/Vol] 8.2 g/dL Low 13.5 - 17.5 g/dL [facility] Interpretation and review of laboratory results Abnormal [facility] MCH (RBC) [Entitic mass] 27.8 pg 26. 0 - 34.0 pg [facility] MCHC (RBC) [Mass/Vol] 32.2 g/dL 32.0 - 36.0 g/dL [facility] MCV (RBC) [Entitic vol] 86 fL 80 - 100 fL [facility] Nucleated RBC/100 WBC (Bld) [Ratio] 0 % [facility] Platelets (Bld) [#/Vol] 570 10*3/uL High [facility] RBC (Bld) [#/Vol] 2.95 10*6/uL Low [facility] WBC (Bld) [#/Vol] 9.4 10*3/uL [facility] Calcium, ionizedon Calcium.ionized (Bld) [Moles/Vol] 1.06 mmol/L Low 1.1 - 1.33 mmol/L [facility] Calcium.ionized (Bld) [Moles /Vol]on 11-13-2024 Interpretation and review of laboratory results Abnormal [facility] Comprehensive metabolic 2000 panelon 11-13-2024 Albumin BCP dye [Mass/Vol] 2.8 g/dL Low 3.4 - 5.0 g/dL [facility] ALP [Catalytic activity/Vol] 89 U/L 33 - 120 U/L [facility] ALT With P-5'-P [Catalytic activity/Vol] 17 U/L 10 - 52 U/L [facility] Anion gap [Moles/Vol] 11 mmol/L 10 - 2 0 mmol/L [facility] AST With P-5'-P [Catalytic activity/Vol] 15 U/L 9 - 39 U/L [facility] Bilirubin [Mass/Vol] 0.3 mg/dL 0.0 - 1 .2 mg/dL [facility] Calcium [Mass/Vol] 9.8 mg/dL 8.6 - 10. 6 mg/dL [facility] Chloride [Moles/Vol] 108 mmol/L High 98 - 10 7 mmol/L [facility] CO2 [Moles/Vol] 23 mmol/L 21 - 32 mmol/L [facility] Creatinine [Mass/Vol] 1.4 mg/dL High 0.50 - 1.30 mg/dL [facility] GFR/1.73 sq M.predicted among non-blacks MDRD (S/P/Bld) [Vol rate/Area] 61 mL/min/{1.73_m2} - PINF [facility] Glucose [Mass/Vol] 117 mg/dL High 74 - 99 mg/dL [facility] Interpretation and review of laboratory results Abnormal [facility] Potassium [Moles/Vol] 3.6 mmol/L 3.5 - 5.3 mmol/L [facility] Protein [Mass/Vol] 5.9 g/dL Low 6.4 - 8.2 g/dL [facility] Sodium [Moles/Vol] 138 mmol/L 136 - 145 mmol/L [facility] Urea nitrogen [Mass/Vol] 9 mg/dL 6 - 23 mg/d L [facility] Albumin BCP dye [Mass/Vol] 2.8 g/dL Low 3.4 - 5.0 g/dL [facility] ALP [Catalytic activity/Vol] 79 U/L 33 - 120 U/L [facility] ALT With P-5'-P [Catalytic activity/Vol] 16 U/L 10 - 52 U/L [facility] Anion gap [Moles/Vol] 12 mmol/L 10 - 2 0 mmol/L [facility] AST With P-5'-P [Catalytic activity/Vol] 13 U/L 9 - 39 U/L [facility] Bilirubin [Mass/Vol] 0.4 mg/dL 0.0 - 1 .2 mg/dL [facility] Calcium [Mass/Vol] 11.1 mg/dL High 8.6 - 10. 6 mg/dL [facility] Chloride [Moles/Vol] 106 mmol/L 98 - 10 7 mmol/L [facility] CO2 [Moles/Vol] 25 mmol/L 21 - 32 mmol/L [facility] Creatinine [Mass/Vol] 1.41 mg/dL High 0.50 - 1.30 mg/dL [facility] GFR/1.73 sq M.predicted among non-blacks MDRD (S/P/Bld) [Vol rate/Area] 60 mL/min/{1.73_m2} Low - PINF [facility] Glucose [Mass/Vol] 106 mg/dL High 74 - 99 mg/dL [facility] Potassium [Moles/Vol] 3.7 mmol/L 3.5 - 5.3 mmol/L [facility] Protein [Mass/Vol] 6.2 g/dL Low 6.4 - 8.2 g/dL [facility] Sodium [Moles/Vol] 139 mmol/L 136 - 145 mmol/L [facility] Urea nitrogen [Mass/Vol] 9 mg/dL 6 - 23 mg/d L [facility] Gas panel (BldV)on 5 Anion gap 4 (BldV) [Moles/Vol] 9 mmol/L Low 10.0 - 25.0 mmol/L [facility] Base excess Calc (BldV) [Moles/Vol] -1.8000 mmol/L -2.0 - 3.0 mmol/L [facility] Calcium.ionized (BldV) [Moles/Vol] 1.43 mmol/L High 1.10 - 1.33 mmol/L [facility] Chloride (BldV) [Moles/Vol] 110 mmol/L High 98 - 107 mmol/L [facility] CO2 (BldV) [Partial pressure] 29 mm[Hg] Low [facility] Glucose [Mass/Vol] 130 mg/dL High 74 - 99 mg/dL [facility] HCO3 (Bld) [Moles/Vol] 21.6 mmol/L Low 22.0 - 26.0 mmol/L [facility] Hematocrit Est (Bld) [Volume fraction] 16 % Low 41.0 - 52.0 % [facility] Hemoglobin (Bld) [Mass/Vol] 5.3 g/dL Critically low 13.5 - 17.5 g/dL [facility] Inhaled oxygen concentration 21 % [facility] Interpretation and review of laboratory results Abnormal [facility] Lactate (BldV) [Moles/Vol] 1.5 mmol/L 0.4 - 2.0 mmol/L [facility] Oxygen (BldV) [Partial pressure] 75 mm[Hg] High [facility] Oxygen saturation in Venous blood 99 % High 45 - 75 % [facility] Oxyhemoglobin (BldV) [Mass fraction] 96 % High 45.0 - 75.0 % [facility] pH (BldV) 7.48 [pH] High 7.33 - 7.43 pH [facility] Potassium (BldV) [Moles/Vol] 3.8 mmol/L 3.5 - 5.3 mmol/L [facility] Sodium (BldV) [Moles/Vol] 137 mmol/L 136 - 145 mmol/L [facility] Glucose Test strip manual (B ld) [Mass/Vol]on 11-13-2024 Glucose [Mass/Vol] 96 mg/dL 74 - 99 mg/dL [facility] Interpretation and review of laboratory results Normal [facility] Haptoglobinon 11-13-2024 Haptoglobin Nephelometry [Mass/Vol] 319 mg/dL High 30 - 200 mg/dL [facility] Haptoglobin Nephelometry [Ma ss/Vol]on 11-13-2024 Interpretation and review of laboratory results Abnormal [facility] Hepatic function 2000 panelo n 11-13-2024 Albumin BCP dye [Mass/Vol] 2.8 g/dL Low 3.4 - 5.0 g/dL [facility] ALP [Catalytic activity/Vol] 89 U/L 33 - 120 U/L [facility] ALT With P-5'-P [Catalytic activity/Vol] 17 U/L 10 - 52 U/L [facility] AST With P-5'-P [Catalytic activity/Vol] 15 U/L 9 - 39 U/L [facility] Bilirubin [Mass/Vol] 0.3 mg/dL 0.0 - 1 .2 mg/dL [facility] Bilirubin.direct [Mass/Vol] 0.1 mg/dL 0.0 - 0.3 mg/dL [facility] Interpretation and review of laboratory results Abnormal [facility] Protein [Mass/Vol] 5.9 g/dL Low 6.4 - 8.2 g/dL [facility] Lactateon 11-13-2024 Lactate [Moles/Vol] 1.5 mmol/L 0.4 - 2. 0 mmol/L [facility] Lactate Dehydrogenaseon 10-20 LDH Lactate to pyruvate reaction [Catalytic activity/Vol] 62 U/L Low 84 - 246 U/L [facility] Lactate [Moles/Vol]on 2024 Interpretation and review of laboratory results Normal [facility] Magnesiumon 11-13-2024 Magnesium [Mass/Vol] 1.23 mg/dL Low 1.60 - 2.40 mg/dL [facility] Magnesium [Mass/Vol] 1.86 mg/dL 1.60 - 2.40 mg/dL [facility] Magnesium [Mass/Vol]on 11-13 Interpretation and review of laboratory results Abnormal [facility] Interpretation and review of laboratory results Normal [facility] No Panel Informationon 11-13 Interpretation and review of laboratory results Abnormal [facility] Interpretation and review of laboratory results Abnormal [facility] Phosphate [Mass/Vol]on 11-13 Interpretation and review of laboratory results Normal [facility] Phosphoruson 11-13-2024 Phosphate [Mass/Vol] 3 mg/dL 2.5 - 4 .9 mg/dL [facility] Renal function 2000 panelon 11-13-2024 Albumin BCP dye [Mass/Vol] 2.1 g/dL Low 3.4 - 5.0 g/dL [facility] Anion gap [Moles/Vol] 9 mmol/L [facility] Calcium [Mass/Vol] 7.4 mg/dL Low 8.6 - 10. 6 mg/dL [facility] Chloride [Moles/Vol] 120 mmol/L High 98 - 10 7 mmol/L [facility] CO2 [Moles/Vol] 17 mmol/L Low 21 - 32 mmol/L [facility] Creatinine [Mass/Vol] 0.93 mg/dL 0.50 - 1.30 mg/dL [facility] eGFR - PINF [facility] Glucose [Mass/Vol] 83 mg/dL 74 - 99 mg/dL [facility] Phosphate [Mass/Vol] 1.6 mg/dL Low 2.5 - 4 .9 mg/dL [facility] Potassium [Moles/Vol] 2.7 mmol/L Critically low 3.5 - 5.3 mmol/L [facility] Sodium [Moles/Vol] 143 mmol/L 136 - 145 mmol/L [facility] Urea nitrogen [Mass/Vol] 6 mg/dL 6 - 23 mg/d L [facility] Reticulocytes panel (Bld)on 11-13-2024 Hemoglobin (Reticulocytes) [Entitic mass] 24 pg Low 28 - 38 pg [facility] Immature Retic fraction 15.5 % NINF - 16.0 % [facility] Interpretation and review of laboratory results Abnormal [facility] Reticulocytes (Bld) [#/Vol] 0.023 10*3/uL [facility] Reticulocytes/100 RBC (Bld) 1.3 % 0.5 - 2.0 % [facility] Serum Protein Electrophoresi s + ImmunofixationOrdered By: [place] on 11-13-2024 Albumin [Mass/Vol] 2.9 g/dL Low 3.4 - 5.0 g/dL [facility] Work Phone: [phone] Alpha 1 Globulin 0.5 g/dL 0.2 - 0.6 g/dL [facility] Work Phone: [phone] Alpha 2 Globulin 0.9 g/dL 0.4 - 1.1 g/dL [facility] Work Phone: [phone] Beta Globulin 1 g/dL 0.5 - 1.2 g/dL [facility] Work Phone: 36 Gamma 1.1 g/dL 0.5 - 1.4 g/dL [facility] Work Phone: [phone] [facility]ation [facility]: Interpretation and review of laboratory results Abnormal [facility] Work Phone: [phone] Path Review - Serum Immunofixation [facility] Work Phone: Path Review - Serum Protein Electrophoresis [facility] Work Phone: Protein [Mass/Vol] 0.2 g/dL High [facility] Work Phone: Protein Electrophoresis Comment [facility] Work Phone: [facility] Work Phone: Slide Requeston 11-13-2024 [facility] Work Phone: TSH with reflex to Free T4 i f abnormalon 11-13-2024 Interpretation and review of laboratory results Normal [facility] TSH Qn 1.25 m[IU]/L [facility] Vancomycinon 11-13-2024 Vancomycin [Mass/Vol] 26.4 ug/mL High 5.0 - 20.0 ug/mL [facility] Vancomycin [Mass/Vol]on 10-20 [facility] Biopsyon 11-12-2024 [facility] Work Phone: [facility] Work Phone: CBC W Auto Differential pane l (Bld)on 11-12-2024 Basophils (Bld) [#/Vol] 0.07 10*3/uL [facility] Basophils/100 WBC (Bld) 0.6 % 0.0 - 2.0 % [facility] Eosinophils (Bld) [#/Vol] 0.55 10*3/uL [facility] Eosinophils/100 WBC (Bld) 4.8 % 0.0 - 6.0 % [facility] Erythrocyte distribution width (RBC) [Ratio] 16.7 % High 11.5 - 14.5 % [facility] Hematocrit (Bld) [Volume fraction] 27.2 % Low 41.0 - 52.0 % [facility] Hemoglobin (Bld) [Mass/Vol] 8.2 g/dL Low 13.5 - 17.5 g/dL [facility] Immature granulocytes (Bld) [#/Vol] 0.04 10*3/uL [facility] Immature granulocytes/100 WBC (Bld) 0.3 % 0.0 - 0.9 % [facility] Interpretation and review of laboratory results Abnormal [facility] Lymphocytes (Bld) [#/Vol] 1.73 10*3/uL [facility] Lymphocytes/100 WBC (Bld) 15.1 % 13.0 - 44.0 % [facility] MCH (RBC) [Entitic mass] 27 pg 26. 0 - 34.0 pg [facility] MCHC (RBC) [Mass/Vol] 30.1 g/dL Low 32.0 - 36.0 g/dL [facility] MCV (RBC) [Entitic vol] 90 fL 80 - 100 fL [facility] Monocytes (Bld) [#/Vol] 1.26 10*3/uL High [facility] Monocytes/100 WBC (Bld) 11 % 2.0 - 10.0 % [facility] Neutrophils (Bld) [#/Vol] 7.8 10*3/uL High [facility] Neutrophils/100 WBC (Bld) 68.2 % 40.0 - 80.0 % [facility] Nucleated RBC/100 WBC (Bld) [Ratio] 0 % [facility] Platelets (Bld) [#/Vol] 576 10*3/uL High [facility] RBC (Bld) [#/Vol] 3.04 10*6/uL Low [facility] WBC (Bld) [#/Vol] 11.5 10*3/uL High [facility] Comprehensive metabolic 2000 panelon 11-12-2024 Albumin BCP dye [Mass/Vol] 2.9 g/dL Low 3.4 - 5.0 g/dL [facility] ALP [Catalytic activity/Vol] 73 U/L 33 - 120 U/L [facility] ALT With P-5'-P [Catalytic activity/Vol] 12 U/L 10 - 52 U/L [facility] Anion gap [Moles/Vol] 13 mmol/L 10 - 2 0 mmol/L [facility] AST With P-5'-P [Catalytic activity/Vol] 7 U/L Low 9 - 39 U/L [facility] Bilirubin [Mass/Vol] 0.3 mg/dL 0.0 - 1 .2 mg/dL [facility] Calcium [Mass/Vol] 11.4 mg/dL High 8.6 - 10. 6 mg/dL [facility] Chloride [Moles/Vol] 107 mmol/L 98 - 10 7 mmol/L [facility] CO2 [Moles/Vol] 23 mmol/L 21 - 32 mmol/L [facility] Creatinine [Mass/Vol] 1.49 mg/dL High 0.50 - 1.30 mg/dL [facility] GFR/1.73 sq M.predicted among non-blacks MDRD (S/P/Bld) [Vol rate/Area] 56 mL/min/{1.73_m2} Low - PINF [facility] Glucose [Mass/Vol] 93 mg/dL 74 - 99 mg/[facility] Interpretation and review of laboratory results Abnormal [facility] Potassium [Moles/Vol] 3.6 mmol/L 3.5 - 5.3 mmol/L [facility] Protein [Mass/Vol] 6.1 g/dL Low 6.4 - 8.2 g/dL [facility] Sodium [Moles/Vol] 139 mmol/L 136 - 145 mmol/L [facility] Urea nitrogen [Mass/Vol] 11 mg/dL 6 - 23 mg/d L [facility] HCV RNA panel MERON+probeOrder ed By: Cassandra Guzmán on 11-12-2024 HCV RNA MERON+probe [Log units/Vol] [facility] HCV RNA MERON+probe Qn Not detected Not detected [facility] Magnesiumon 11-12-2024 Magnesium [Mass/Vol] 1.91 mg/dL 1.60 - 2.40 mg/dL [facility] Magnesium [Mass/Vol]on 11-12 Interpretation and review of laboratory results Normal [facility] No Panel Informationon 11-12 [facility] Comprehensive metabolic 2000 panelon 11-11-2024 Albumin BCP dye [Mass/Vol] 2.8 g/dL Low 3.4 - 5.0 g/dL [facility] ALP [Catalytic activity/Vol] 71 U/L 33 - 120 U/L [facility] ALT With P-5'-P [Catalytic activity/Vol] 9 U/L Low 10 - 52 U/L [facility] Anion gap [Moles/Vol] 9 mmol/L Low 10 - 2 0 mmol/L [facility] AST With P-5'-P [Catalytic activity/Vol] 6 U/L Low 9 - 39 U/L [facility] Bilirubin [Mass/Vol] 0.3 mg/dL 0.0 - 1 .2 mg/dL [facility] Calcium [Mass/Vol] 11.2 mg/dL High 8.6 - 10. 6 mg/dL [facility] Chloride [Moles/Vol] 108 mmol/L High 98 - 10 7 mmol/L [facility] CO2 [Moles/Vol] 26 mmol/L 21 - 32 mmol/L [facility] Creatinine [Mass/Vol] 1.4 mg/dL High 0.50 - 1.30 mg/dL [facility] GFR/1.73 sq M.predicted among non-blacks MDRD (S/P/Bld) [Vol rate/Area] 61 mL/min/{1.73_m2} - PINF [facility] Glucose [Mass/Vol] 101 mg/dL High 74 - 99 mg/dL [facility] Potassium [Moles/Vol] 3.8 mmol/L 3.5 - 5.3 mmol/L [facility] Protein [Mass/Vol] 5.6 g/dL Low 6.4 - 8.2 g/dL [facility] Sodium [Moles/Vol] 139 mmol/L 136 - 145 mmol/L [facility] Urea nitrogen [Mass/Vol] 11 mg/dL 6 - 23 mg/d L [facility] HBV core Ab Ql (S)on 025 Interpretation and review of laboratory results Normal [facility] HBV surface Ab Qn (S)on 10-20 Interpretation and review of laboratory results [facility] HBV surface Ag IA Qlon 11-11 Interpretation and review of laboratory results Normal [facility] HIV 1+2 Ab+HIV1 p24 Ag IA Ql on 11-11-2024 Interpretation and review of laboratory results Normal [facility] HIV 1/2 Antigen/Antibody Scr een with Reflex to Confirmationon 11-11-2024 HIV 1+2 Ab+HIV1 p24 Ag IA Ql Non-Reactive Nonreactive [facility] Hepatitis B Core Antibody, T otalon 11-11-2024 HBV core Ab Ql (S) Non-Reactive Nonreactive [facility] Hepatitis B surface antibody on 11-11-2024 HBV surface Ab Qn (S) NINF [facility] Hepatitis B surface antigeno n 11-11-2024 HBV surface Ag IA Ql [facility]-Reactive [facility] Magnesiumon 11-11-2024 Magnesium [Mass/Vol] 1.98 mg/dL 1.60 - 2.40 mg/dL [facility] Magnesium [Mass/Vol]on 11-11 Interpretation and review of laboratory results Normal [facility] No Panel Informationon 11-11 Interpretation and review of laboratory results Abnormal [facility] Phosphoruson 11-11-2024 Phosphate [Mass/Vol] 2.7 mg/dL 2.5 - 4 .9 mg/dL [facility] Urine Protein Electrophoresi son 11-11-2024 Albumin Elph (U) [Mass fraction] 16.4 % [facility] Work Phone: [phone] Alpha 1 globulin Elph (U) [Mass fraction] 29.9 % [facility] Work Phone: [phone] Alpha 2 globulin Elph (U) [Mass fraction] 9.4 % [facility] Work Phone: [phone] Beta globulin Elph (U) [Mass fraction] 21.8 % [facility] Work Phone: [phone] Gamma globulin Elph (U) [Mass fraction] 22.5 % [facility] Work Phone: [phone] Path Review-Urine Protein Electrophoresis [facility] Work Phone: [phone] Urine Electrophoresis Comment Normal. [facility] Work Phone: [phone] [facility] Work Phone: Vancomycinon 11-11-2024 Vancomycin [Mass/Vol] 27 ug/mL High 5.0 - 20.0 ug/mL [facility] Vancomycin [Mass/Vol]on 10-20 [facility] ECG 12-LEADon 11-10-2024 ECG 12-LEAD Ventricular Rate 77 Atrial Rate 77 P-R Interval 146 QRS Duration 108 Q-T Interval 368 QTC Calculation(Bazett) 416 P [place] 55 R [place] [place] [address] [place] 66 QRS Count 13 Q Onset 211 [...] (1008) on 11/28/2024 9:05:21 AM Normal [facility] 30on 11-09-2024 30 Problem: Knowledge Deficit Goal: [...] discharge needs are met Outcome: Progressing Normal [facility] CBC W Auto Differential pane l (Bld)Ordered By: Marysol El on 11-09-2024 Erythrocyte distribution width (RBC) [Ratio] 16.4 % High 11.5 - 15.0 % [facility] Hematocrit (Bld) [Volume fraction] 27.7 % Low 40.0 - 52.0 % [facility] Hemoglobin (Bld) [Mass/Vol] 8.8 g/dL Low 13.0 - 18.0 g/dL [facility] Interpretation and review of laboratory results Abnormal [facility] MCH (RBC) [Entitic mass] 27.7 pg 26. 0 - 34.0 pg [facility] MCHC (RBC) [Mass/Vol] 31.8 % 30.5 - 36.0 % [facility] MCV (RBC) [Entitic vol] 87.1 fL 77.0 - 99.0 fL [facility] Platelet mean volume (Bld) [Entitic vol] 8.8 fL Low 9.0 - 12.7 fL [facility] Platelets (Bld) [#/Vol] 524 10*3/uL High 140 - 440 10*3/uL [facility] RBC (Bld) [#/Vol] 3.18 10*6/uL Low 4.40 - 5.9 0 10*6/uL [facility] WBC (Bld) [#/Vol] 13 10*3/uL High 3.6 - 10.7 10*3/uL [facility] CBC WITH AUTO DIFFERENTIALon 11-09-2024 Erythrocyte distribution width (RBC) [Ratio] 16.4 % High 11.5-15.0 [facility] Comment on above: Performed By: #### L [id number], [id number] ####[employer] Manager: JAZLYN JIMENEZ ([phone])[address] Hematocrit (Bld) [Volume fraction] 27.7 % Low 40.0-52.0 [facility] Comment on above: Performed By: #### Kamila [id number], [id number] ####[employer] Manager: JAZLYN JIMENEZ ([phone])[address] Hemoglobin (Bld) [Mass/Vol] 8.8 g/dL Low 13.0-18.0 [facility] Comment on above: Performed By: #### L [id number], [id number] ####[employer] Manager: JAZLYN JIMENEZ ([phone])[facility])[address] [place] [address] MCH (RBC) [Entitic mass] 27.7 pg Normal 26.0-34.0 [facility] Comment on above: Performed By: #### L [id number], [id number] ####[employer] Manager: JAZLYN JIMENEZ ([phone])[facility])[address] [place] [address] MCHC 31.8 % Normal 30.5-36.0 [facility] Comment on above: Performed By: #### L [id number], [id number] ####[employer] Manager: JAZLYN JIMENEZ ([phone])[facility])[address] [place] [address] MCV (RBC) [Entitic vol] 87.1 fL Normal 77.0-99.0 S [facility] Comment on above: Performed By: #### L [id number], [id number] ####[employer] Manager: JAZLYN JIMENEZ ([phone])[facility])[address] [place] [address] Platelet mean volume (Bld) [Entitic vol] 8.8 fL Low 9.0-12.7 [facility] Comment on above: Performed By: #### L [id number], [id number] ####[employer] Manager: JAZLYN JIMENEZ ([phone])[facility])[address] [place] [address] Platelets (Bld) [#/Vol] 524 10*3/uL High 140-440 [facility] Comment on above: Performed By: #### Kamila IN6090, [id number] ####[employer] Manager: JAZLYN JIMENEZ ([phone])[facility])[address] [place] [address] RBC (Bld) [#/Vol] 3.18 10*6/uL Low 4.40-5.90 [facility] Comment on above: Performed By: #### L [id number], [id number] ####[employer] Manager: JAZLYN JIMENEZ ([phone])[facility])[address] [place] [address] WBC (Bld) [#/Vol] 13.0 10*3/uL High 3.6-10.7 [facility] Comment on above: Performed By: #### L [id number], [id number] ####[employer] Manager: JAZLYN JIMENEZ ([phone])[facility])[address] [place] [address] COMPREHENSIVE METABOLIC PANE Yuriy 11-09-2024 Albumin [Mass/Vol] 2.5 g/dL Low 3.5-5.0 [facility] Comment on above: Performed By: #### L [id number] ####[employer] Manager: JAZLYN JIMENEZ ([phone])[facility] ([facility])[address] [place] [address] ALP [Catalytic activity/Vol] 70 U/L Normal 40-150 [facility] Comment on above: Performed By: #### L [id number] ####[employer] Manager: JAZLYN JIMENEZ ([phone])[facility] ([facility])[address] [place] [address] ALT [Catalytic activity/Vol] U/L Normal <40 [facility] Comment on above: Performed By: #### L [id number] ####[employer] Manager: JAZLYN JIMENEZ ([phone])[facility] ([facility])[address] [place] [address] Anion gap [Moles/Vol] 6 mmol/L Normal 3-13 [facility] Comment on above: Performed By: #### L [id number] ####[employer] Manager: JAZLYN JIMENEZ ([phone])[facility])[address] [place] [address] AST [Catalytic activity/Vol] 11 U/L Normal <34 [facility] Comment on above: Performed By: #### L [id number] ####[employer] Manager: JAZLYN JIMENEZ ([phone])[facility])[address] [place] [address] Bilirubin [Mass/Vol] 0.4 mg/dL Normal <1.2 [facility] Comment on above: Performed By: #### L [id number] ####[employer] Manager: JAZLYN JIMENEZ ([phone])[facility])[address] [place] [address] Calcium [Mass/Vol] 12.1 mg/dL High 8.4-10.2 [facility] Comment on above: Performed By: #### L [id number] ####[employer] Manager: JAZLYN JIMENEZ ([phone])[facility] [place] [address] Chloride [Moles/Vol] 107 mmol/L Normal 98-107 [facility] Comment on above: Performed By: #### L [id number] ####[employer] Manager: JAZLYN JIMENEZ ([phone])[facility] ([facility])[address] [place] [address] CO2 [Moles/Vol] 24 mmol/L Normal 22-29 [facility] Comment on above: Performed By: #### L [id number] ####[employer] Manager: JAZLYN JIMENEZ ([phone])[facility])[address] [place] [address] Creatinine [Mass/Vol] 1.42 mg/dL High 0.72-1.25 [facility] Comment on above: Performed By: #### L [id number] ####[employer] Manager: JAZLYN JIMENEZ ([phone])[facility] ([facility])[address] [place] [address] GLOMERULAR FILTRATION RATE ML/MIN/1.73 SQ M.PREDICTED 59.8 mL/min/1.73m*2 Low >60.0 [facility] Comment on above: Result Comment: Calc ulation based on the Chronic Kidney Disease Epidemiology Collaboration (CKD-EPI) equation refit without adjustment for race Performed By: #### L [id number] ####[employer] Manager: JAZLYN JIMENEZ ([phone])[facility] ([facility])[address] [place] [address] Glucose [Mass/Vol] 101 mg/dL High 74-100 [facility] Comment on above: Performed By: #### L [id number] ####[employer] Manager: JAZLYN JIMNEEZ ([phone])[facility])[address] [place] [address] Potassium [Moles/Vol] 3.7 mmol/L Normal 3.5-5.1 [facility] Comment on above: Result Comment: [facility] potassium values may be up to 0.5 mmol/L lower than serum values. Performed By: #### L AB17 ####[employer] Manager: JAZLYN JIMENEZ ([phone])[facility])[address] [place] [address] Protein [Mass/Vol] 6.3 g/dL Low 6.4-8.3 [facility] Comment on above: Performed By: #### L [id number] ####[employer] Manager: JAZLYN JIMENEZ ([phone])[facility])[address] [place] [address] Sodium [Moles/Vol] 137 mmol/L Normal 136-145 [facility] Comment on above: Performed By: #### L [id number] ####[employer] Manager: JAZLYN JIMENEZ ([phone])[facility])[address] [place] [address] Urea nitrogen [Mass/Vol] 19 mg/dL Normal 9-23 [facility] Comment on above: Performed By: #### L [id number] ####[employer] Manager: JAZLYN JIMENEZ ([phone])[facility] ([facility])[address] [place] [address] Comprehensive metabolic 1998 panelon 11-09-2024 Albumin [Mass/Vol] 2.5 g/dL Low 3.5 - 5.0 g/dL [facility] ALP [Catalytic activity/Vol] 70 U/L 40 - 150 U/L [facility] ALT [Catalytic activity/Vol] U/L NINF - 40 U/L [facility] Anion gap [Moles/Vol] 6 mmol/L 3 - 13 mmol/L [facility] AST [Catalytic activity/Vol] 11 U/L NINF - 34 U/L [facility] Bilirubin [Mass/Vol] 0.4 mg/dL NINF - 1.2 mg/dL [facility] Calcium [Mass/Vol] 12.1 mg/dL High 8.4 - 10. 2 mg/dL [facility] Chloride [Moles/Vol] 107 mmol/L 98 - 10 7 mmol/L [facility] CO2 [Moles/Vol] 24 mmol/L 22 - 29 mmol/L [facility] Creatinine [Mass/Vol] 1.42 mg/dL High 0.72 - 1.25 mg/dL [facility] GFR/1.73 sq M.predicted (S/P/Bld) [Vol rate/Area] 59.8 mL/min Low - PINF [facility] Comment on above: Calculation based on the Chronic Kidney Disease Epidemiology Collaboration (CKD-EPI) equation refit without adjustment for race Glucose [Mass/Vol] 101 mg/dL High 74 - 100 mg/dL [facility] Interpretation and review of laboratory results Abnormal [facility] Potassium [Moles/Vol] 3.7 mmol/L 3.5 - 5.1 mmol/L [facility] Comment on above: Plasma potassium jeri ues may be up to 0.5 mmol/L lower than serum values. Protein [Mass/Vol] 6.3 g/dL Low 6.4 - 8.3 g/dL [facility] Sodium [Moles/Vol] 137 mmol/L 136 - 145 mmol/L [facility] Urea nitrogen [Mass/Vol] 19 mg/dL 9 - 23 mg/d L [facility] [employer] Consulton 11-09-2024 Consult Attestation signed by Cara [...] minutes (including chart/data review/analysis, care coordination, and [id number] encounter), and was spent discussing/counselin g the [...] & Acute Care Surgery Department of Surgery [facility] Department of General Surgery Surgical Service - [...] He had (more content not included)... Normal [facility] ED Nursing Noteon 11-09-2024 ED Nursing Note This RN spoke to Enrique at transfer center for patient update. He stated that they are currently waiting for a bed assignment for the patient at [facility]. Normal [facility] MANUAL DIFFERENTIALon 2024 ANISOCYTOSIS PRESENCE IN BLOOD BY LIGHT MICROSCOPY Slight Abnormal (none) [facility] Comment on above: Performed By: #### L [id number], [id number] ####[employer] Manager: JAZLYN JIMENEZ ([phone])[facility] ([facility])[address] [place] [address] BAND NEUTROPHILS TOTAL PER COUNTED LEUKOCYTES BY MANUAL COUNT 5 Normal [facility] Comment on above: Performed By: #### L [id number], [id number] ####[employer] Manager: JAZLYN JIMENEZ ([phone])[facility] ([facility])[address] [place] [address] BANDS 0.7 10*3/uL High <=0.0 [facility] Comment on above: Performed By: #### L [id number], [id number] ####[employer] Manager: JAZLYN JIMENEZ ([phone])[facility] ([facility])[address] [place] [address] PENNY CELLS PRESENCE IN BLOOD BY LIGHT MICROSCOPY Slight Abnormal (none) [facility] Comment on above: Performed By: #### L [id number], [id number] ####[employer] Manager: JAZLYN JIMENEZ ([phone])[facility] ([facility])[address] [place] [address] CELLS COUNTED TOTAL (#) IN BLOOD 100 Normal [facility] Comment on above: Performed By: #### Kamila [id number], [id number] ####[employer] Manager: JAZLYN JIMENEZ ([phone])[facility])[address] [place] [address] DIFFERENTIAL METHOD Manual differential performed Normal [facility] Comment on above: Performed By: #### L [id number], [id number] ####[employer] Manager: JAZLYN JIMENEZ ([phone])[facility] ([facility])[address] [place] [address] [place] EOSINOPHILS (10*3/UL) IN BLOOD BY MANUAL COUNT 1.0 10*3/uL High 0.0-0.5 [facility] Comment on above: Performed By: #### L [id number], [id number] ####[employer] Manager: JAZLYN JIMENEZ ([phone])[facility] ([facility])[address] [place] [address] [place] EOSINOPHILS TOTAL PER COUNTED LEUKOCYTES BY MANUAL COUNT 8 High 0-1 [facility] Comment on above: Performed By: #### L [id number], [id number] ####[employer] Manager: JAZLYN JIMENEZ ([phone])[facility] [place] [address] [place] EOSINOPHILS/100 LEUKOCYTES IN BLOOD BY MANUAL COUNT 8 % High 0-6 [facility] Comment on above: Performed By: #### L [id number], [id number] ####[employer] Manager: JAZLYN JIMENEZ ([phone])[facility] ([facility])[address] [place] [address] [place] LEUKOCYTE MORPHOLOGY FINDING IN BLOOD Normal Normal [facility] Comment on above: Performed By: #### Kamila [id number], [id number] ####[employer] Manager: JAZLYN JIMENEZ ([phone])[facility] ([facility])[address] [place] [address] LEUKOCYTES (10*3/UL) NUCLEATED ERYTHROCYTE ADJUST 13.0 10*3/uL High 3.6-10.7 [facility] Comment on above: Performed By: #### Kamila WQ3049, [id number] ####[employer] Manager: JAZLYN JIMENEZ ([phone])[facility] ([facility])[address] [place] [address] [place] LYMPHOCYTES (10*3/UL) IN BLOOD BY MANUAL COUNT 1.4 10*3/uL Normal 1.0-4.3 [facility] Comment on above: Performed By: #### Kamila CS4614, [id number] ####[employer] Manager: JAZLYN JIMENEZ ([phone])[facility] ([facility])[address] [place] [address] [place] LYMPHOCYTES TOTAL PER COUNTED LEUKOCYTES BY MANUAL COUNT 11 Normal [facility] Comment on above: Performed By: #### Kamila [id number], [id number] ####[employer] Manager: JAZLYN JIMENEZ ([phone])[facility])[address] [place] [address] [place] LYMPHOCYTES/100 LEUKOCYTES IN BLOOD BY MANUAL COUNT 11 % Low 15-45 [facility] Comment on above: Performed By: #### Kamila [id number], [id number] ####[employer] Manager: JAZLYN JIMENEZ ([phone])[facility])[address] [place] [address] [place] MACROCYTES (PRESENCE) IN BLOOD BY LIGHT MICROSCOPY Slight Abnormal (none) [facility] Comment on above: Performed By: #### L [id number], [id number] ####[employer] Manager: JAZLYN JIMENEZ ([phone])[facility])[address] [place] [address] [place] MONOCYTES (10*3/UL) IN BLOOD BY MANUAL COUNT 1.0 10*3/uL High 0.0-0.9 [facility] Comment on above: Performed By: #### L [id number], [id number] ####[employer] Manager: JAZLYN JIMENEZ ([phone])[facility])[address] [place] [address] MONOCYTES TOTAL PER COUNTED LEUKOCYTES BY MANUAL COUNT 8 Normal [facility] Comment on above: Performed By: #### Kamila KH0860, [id number] ####[employer] Manager: JAZLYN JIMENEZ ([phone])[facility] ([facility])[address] [place] [address] [place] MONOCYTES/100 LEUKOCYTES IN BLOOD BY MANUAL COUNT 8 % Normal 5-13 [facility] Comment on above: Performed By: #### L [id number], [id number] ####[employer] Manager: JAZLYN JIMENEZ ([phone])[facility])[address] [place] [address] NEUTROPHILS (SEGS+BANDS) (10*3/UL) BY MANUAL COUNT 9.5 10*3/uL High 1.8-7.0 [facility] Comment on above: Performed By: #### L [id number], [id number] ####[employer] Manager: JAZLYN JIMENEZ ([phone])[facility])[address] [place] [address] [place] NEUTROPHILS BAND FORM/100 LEUKOCYTES IN BLOOD BY MANUAL COUNT 5 % High <=0 [facility] Comment on above: Performed By: #### L [id number], [id number] ####[employer] Manager: JAZLYN JIMENEZ ([phone])[facility])[address] [place] [address] NEUTROPHILS TOTAL PER COUNTED LEUKOCYTES BY MANUAL COUNT 68 Normal [facility] Comment on above: Performed By: #### L [id number], [id number] ####[employer] Manager: JAZLYN JIMENEZ ([phone])[facility] [place] [address] OVALOCYTES PRESENCE IN BLOOD BY LIGHT MICROSCOPY Slight Abnormal (none) [facility] Comment on above: Performed By: #### L [id number], [id number] ####[employer] Manager: JAZLYN JIMENEZ ([phone])[facility] ([facility])[address] [place] [address] PLATELET MORPHOLOGY IN BLOOD Normal Normal [facility] Comment on above: Performed By: #### L [id number], [id number] ####[employer] Manager: JAZLYN JIMENEZ ([phone])[facility] ([facility])[address] [place] [address] POIKILOCYTOSIS (PRESENCE) IN BLOOD BY LIGHT MICROSCOPY Slight Abnormal (none) [facility] Comment on above: Performed By: #### L [id number], [id number] ####[employer] Manager: JAZLYN JIMENEZ ([phone])[facility] ([facility])[address] [place] [address] SEGEMENTED NEUTROPHILS/100 LEUKOCYTES BY MANUAL COUNT 68 % Normal 38-82 [facility] Comment on above: Performed By: #### L [id number], [id number] ####[employer] Manager: JAZLYN JIMENEZ ([phone])[facility] ([facility])[address] [place] [address] [place] SEGMENTED NEUTROPHILS (10*3/UL)IN BLOOD BY MANUAL COUNT 9.5 10*3/uL High 1.8-7.5 [facility] Comment on above: Performed By: #### L [id number], [id number] ####[employer] Manager: JAZLYN JIMENEZ ([phone])[facility] ([facility])[address] [place] [address] [place] TARGET CELLS IN BLOOD BY LIGHT MICROSCOPY Slight Abnormal (none) [facility] Comment on above: Performed By: #### L [id number], [id number] ####[employer] Manager: JAZLYN JIMENEZ ([phone])[address] Manual differential performe d Ql (Bld)Ordered By: Flores Rausch on 11-09-2024 Anisocytosis Ql (Bld) Slight Abnormal (none) [facility] Band form neutrophils (Bld) [#/Vol] 0.7 10*3/uL High NINF - 0.0 10*3/uL [facility] Band form neutrophils/100 WBC (Bld) 5 % High NINF - 0 % [facility] Bands Manual 5 [facility] cells LM Ql (Bld) Slight Abnormal (none) [facility] Cells Counted Total (Bld) [#] 100 {cells} [facility] Differential Method Manual differential performed [facility] Eosinophils (Bld) [#/Vol] 1 10*3/uL High 0.0 - 0.5 10*3/uL [facility] Eosinophils Manual 8 High 0 - 1 [facility] Eosinophils/100 WBC (Bld) 8 % High 0 - 6 % [facility] Interpretation and review of laboratory results Abnormal [facility] Leukocyte morphology finding Nom (Bld) Normal [facility] Lymphocytes (Bld) [#/Vol] 1.4 10*3/uL 1.0 - 4.3 10*3/uL [facility] Lymphocytes Manual 11 [facility] Lymphocytes/100 WBC (Bld) 11 % Low 15 - 45 % [facility] Macrocytes Ql (Bld) Slight Abnormal (none) [facility] Monocytes (Bld) [#/Vol] 1 10*3/uL High 0.0 - 0.9 10*3/uL [facility] Monocytes Manual [facility]/100 WBC (Bld) 8 % 5 - 13 % [facility] Neutrophils (Bld) [#/Vol] 9.5 10*3/uL High 1.8 - 7.5 10*3/uL [facility] Neutrophils Manual 68 [facility] Ovalocytes LM Ql (Bld) Slight Abnormal (none) [facility] Platelet morphology finding Nom (Bld) Normal [facility] Poikilocytosis LM Ql (Bld) Slight Abnormal (none) [facility] Segmented neutrophils/100 WBC (Bld) 68 % 38 - 82 % [facility] Target cells LM Ql (Bld) Slight Abnormal (none) [facility] WBC corrected for nucl RBC (Bld) [#/Vol] 13 10*3/uL High 3.6 - 10.7 10*3/uL [facility] Nursing Noteon 11-09-2024 Nursing Note transfer center called, stated still no bed are available but checking on if any changes in pt condition. Updated vitals given and isolation status confirmed. Enrique at the transfer center given unit phone number and he stated they will reach out when bed available. Normal [facility] Progress Noteon 11-09-2024 Progress Note Patient is accepted for transfer to pending bed availability. Will continue to monitor on antibiotics. Will hold off on US or biopsy of enhancing lesion at this time, although in the setting of recent infection the etiology is most likely infectious. Surgical team has signed off. Normal [facility] BLOOD CULTUREon 11-08-2024 Bacteria identified Cx Nom (Bld) BLOOD CULTURE Reference No growth at 5 days ORDER COMMENTS: Hidradenitis Blood Collection Site: Left Arm [ S = SUSCEPTIBLE R = RESISTANT I = INTERMEDIATE S-DD = Susceptible-dose dependent NS = Non-susceptible NO = No Interpretation ] Normal [facility] Comment on above: Performed By: #### L [id number], [id number] #### [employer] Manager: JAZLYN JIMENEZ ([phone]) [address] Bacteria identified Cx Nom (Bld) BLOOD CULTURE Reference No growth at 5 days ORDER COMMENTS: Blood Collection Site: Right Arm [ S = SUSCEPTIBLE R = RESISTANT I = INTERMEDIATE S-DD = Susceptible-dose dependent NS = Non-susceptible NO = No Interpretation ] [facility] Comment on above: Performed By: #### L [id number], [id number] #### [employer] Manager: JAZLYN JIMENEZ ([phone]) [address] CBC W Auto Differential pane l (Bld)Ordered By: Vielka Cortez on 11-08-2024 Basophils (Bld) [#/Vol] 0.1 10*3/uL 0.0 - 0.2 10*3/uL [facility] Basophils/100 WBC (Bld) 0.5 % 0.0 - 2.0 % [facility] Eosinophils (Bld) [#/Vol] 0.2 10*3/uL 0.0 - 0.5 10*3/uL [facility] Eosinophils/100 WBC (Bld) 1.4 % 0.0 - 6.0 % [facility] Erythrocyte distribution width (RBC) [Ratio] 16.5 % High 11.5 - 15.0 % [facility] Hematocrit (Bld) [Volume fraction] 31.1 % Low 40.0 - 52.0 % [facility] Hemoglobin (Bld) [Mass/Vol] 10.4 g/dL Low 13.0 - 18.0 g/dL [facility] Immature granulocytes (Bld) [#/Vol] 0.1 10*3/uL High NINF - 0.1 10*3/uL [facility] Immature granulocytes/100 WBC (Bld) 0.5 % 0.0 - 2.0 % [facility] Interpretation and review of laboratory results Abnormal [facility] Lymphocytes (Bld) [#/Vol] 1.6 10*3/uL 1.0 - 4.3 10*3/uL [facility] Lymphocytes/100 WBC (Bld) 11.7 % Low 15.0 - 45.0 % [facility] MCH (RBC) [Entitic mass] 28.3 pg 26. 0 - 34.0 pg [facility] MCHC (RBC) [Mass/Vol] 33.4 % 30.5 - 36.0 % [facility] MCV (RBC) [Entitic vol] 84.5 fL 77.0 - 99.0 fL [facility] Monocytes (Bld) [#/Vol] 1.5 10*3/uL High 0.0 - 0.9 10*3/uL [facility] Monocytes/100 WBC (Bld) 10.9 % 5.0 - 13.0 % [facility] Neutrophils (Bld) [#/Vol] 10.4 10*3/uL High 1.8 - 7.5 10*3/uL [facility] Neutrophils/100 WBC (Bld) 75 % 38.0 - 82.0 % [facility] Nucleated RBC/100 WBC (Bld) [Ratio] 0 % [facility] Platelet mean volume (Bld) [Entitic vol] 9.5 fL 9.0 - 12.7 fL [facility] Platelets (Bld) [#/Vol] 634 10*3/uL High 140 - 440 10*3/uL [facility] RBC (Bld) [#/Vol] 3.68 10*6/uL Low 4.40 - 5.9 0 10*6/uL [facility] WBC (Bld) [#/Vol] 13.9 10*3/uL High 3.6 - 10.7 10*3/uL [facility] CBC WITH AUTO DIFFERENTIALon 11-08-2024 Basophils (Bld) [#/Vol] 0.1 10*3/uL Normal 0.0-0.2 [facility] Comment on above: Performed By: #### L [id number] ####[employer] Rental [employer] Manager: JAZLYN JIMENEZ ([phone])[facility])[address] [place] [address] Basophils/100 WBC (Bld) 0.5 % Normal 0.0-2.0 [facility] Comment on above: Performed By: #### L [id number] ####[employer] Rental Agency Manager: JAZLYN JIMENEZ ([phone])[facility])[address] [place] [address] Eosinophils (Bld) [#/Vol] 0.2 10*3/uL Normal 0.0-0.5 [facility] Comment on above: Performed By: #### L [id number] ####[employer] Rental Agency Manager: JAZLYN JIMENEZ ([phone])[facility])[address] [place] [address] Eosinophils/100 WBC (Bld) 1.4 % Normal 0.0-6.0 [facility] Comment on above: Performed By: #### L [id number] ####[employer] Rental [employer] Manager: JAZLYN JIMENEZ ([phone])[facility])[address] [place] [address] Erythrocyte distribution width (RBC) [Ratio] 16.5 % High 11.5-15.0 [facility] Comment on above: Performed By: #### L [id number] ####[employer]ental [employer] Manager: JAZLYN JIMENEZ ([phone])[facility])[address] [place] [address] Hematocrit (Bld) [Volume fraction] 31.1 % Low 40.0-52.0 [facility] Comment on above: Performed By: #### L [id number] ####[employer] Rental Agency Manager: JAZLYN JIMENEZ ([phone])[facility])[address] [place] [address] Hemoglobin (Bld) [Mass/Vol] 10.4 g/dL Low 13.0-18.0 [facility] Comment on above: Performed By: #### L [id number] ####[employer] Rental Agency Manager: JAZLYN JIMENEZ ([phone])[facility])[address] [place] [address] IMMATURE GRANS % 0.5 % Normal 0.0-2.0 [facility] Comment on above: Performed By: #### L [id number] ####[employer] Rental Agency Manager: JAZLYN JIMENEZ ([phone])[facility])[address] [place] [address] IMMATURE GRANS ABSOLUTE 0.1 10*3/uL High <0.1 [facility] Comment on above: Performed By: #### L [id number] ####[employer] Rental [employer] Manager: JAZLYN JIMENEZ ([phone])[facility])[address] [place] [address] Lymphocytes (Bld) [#/Vol] 1.6 10*3/uL Normal 1.0-4.3 [facility] Comment on above: Performed By: #### L [id number] ####[employer] Rental Agency Manager: JAZLYN JIMENEZ ([phone])[facility])[address] [place] [address] Lymphocytes/100 WBC (Bld) 11.7 % Low 15.0-45.0 [facility] Comment on above: Performed By: #### L [id number] ####[employer] Rental Agency Manager: JAZLYN JIMENEZ ([phone])[facility])[address] [place] [address] MCH (RBC) [Entitic mass] 28.3 pg Normal 26.0-34.0 [facility] Comment on above: Performed By: #### L [id number] ####[employer] Rental Agency Manager: JAZLYN JIMENEZ ([phone])[facility])[address] [place] [address] MCHC 33.4 % Normal 30.5-36.0 [facility] Comment on above: Performed By: #### L [id number] ####[employer] Rental Agency Manager: JAZLYN JIMENEZ ([phone])[facility])[address] [place] [address] MCV (RBC) [Entitic vol] 84.5 fL Normal 77.0-99.0 [facility] Comment on above: Performed By: #### L [id number] ####[employer] Rental Agency Manager: JAZLYN JIMENEZ ([phone])[facility])[address] [place] [address] Monocytes (Bld) [#/Vol] 1.5 10*3/uL High 0.0-0.9 [facility] Comment on above: Performed By: #### L [id number] ####[employer] Rental Agency Manager: JAZLYN JIMENEZ ([phone])[facility])[address] [place] [address] Monocytes/100 WBC (Bld) 10.9 % Normal 5.0-13.0 [facility] Comment on above: Performed By: #### L [id number] ####[employer] Rental Agency Manager: JAZLYN JIMENEZ ([phone])[facility])[address] [place] [address] NEUTROPHILS ABSOLUTE 10.4 10*3/uL High 1.8-7.5 [facility] Comment on above: Performed By: #### L [id number] ####[employer] Rental Agency Manager: JAZLYN JIMENEZ ([phone])[facility])[address] [place] [address] Neutrophils/100 WBC (Bld) 75.0 % Normal 38.0-82.0 [facility] Comment on above: Performed By: #### L [id number] ####[employer] Rental Agency Manager: JAZLYN JIMENEZ ([phone])[facility])[address] [place] [address] NRBC 0.0 /100 WBCs Normal 0.0-2.0 [facility] Comment on above: Performed By: #### L [id number] ####[employer] Rental Agency Manager: JAZLYN JIMENEZ ([phone])[facility] ([facility])[address] [place] [address] Platelet mean volume (Bld) [Entitic vol] 9.5 fL Normal 9.0-12.7 [facility] Comment on above: Performed By: #### L [id number] ####[employer] Rental Agency Manager: JAZLYN JIMENEZ ([phone])[facility] ([facility])[address] [place] [address] Platelets (Bld) [#/Vol] 634 10*3/uL High 140-440 [facility] Comment on above: Performed By: #### L [id number] ####[employer]ental [employer] Manager: JAZLYN JIMENEZ ([phone])[facility] ([facility])[address] [place] [address] RBC (Bld) [#/Vol] 3.68 10*6/uL Low 4.40-5.90 [facility] Comment on above: Performed By: #### L [id number] ####[employer] Rental Agency Manager: JAZLYN JIMENEZ ([phone])[facility] ([facility])[address] [place] [address] WBC (Bld) [#/Vol] 13.9 10*3/uL High 3.6-10.7 [facility] Comment on above: Performed By: #### L [id number] ####[employer] Rental [employer] Manager: JAZLYN JIMENEZ ([phone])[facility])[address] [place] [address] COMPLETE URINALYSISon 2024 BILIRUBIN, TOTAL PRESENCE IN URINE Negative Normal Negative [facility] Comment on above: Performed By: #### L [id number] ####[employer] Rental Agency Manager: JAZLYN JIMENEZ ([phone])[facility] ([facility])[address] [place] [address] Clarity (U) Clear Normal Clear [facility] Comment on above: Performed By: #### L [id number] ####[employer] Rental Agency Manager: JAZLYN JIMENEZ ([phone])[facility] ([facility])[address] [place] [address] Color (U) Light Yellow Normal Lt. Yellow [facility] Comment on above: Performed By: #### L [id number] ####[employer] Rental Agency Manager: JAZLYN JIMENEZ ([phone])[facility] ([facility])[address] [place] [address] GLUCOSE (MG/DL) IN URINE Normal Normal Normal (<70 ) [facility] Comment on above: Performed By: #### L [id number] ####[employer] Rental Agency Manager: JAZLYN JIMENEZ ([phone])[facility] ([facility])[address] [place] [address] HEMOGLOBIN PRESENCE IN URINE Negative Normal Negative [facility] Comment on above: Performed By: #### L [id number] ####[employer] Rental Agency Manager: JAZLYN JIMENEZ ([phone])[facility] ([facility])[address] [place] [address] Ketones Ql (U) Negative Normal Negative [facility] Comment on above: Performed By: #### L [id number] ####[employer] Rental Agency Manager: JAZLYN JIMENEZ ([phone])[facility] ([facility])[address] [place] [address] LEUKOCYTE ESTERASE PRESENCE IN URINE BY TEST STRIP Negative Normal Negative [facility] Comment on above: Performed By: #### L [id number] ####[employer] Rental Agency Manager: JAZLYN JIMENEZ ([phone])[facility] ([facility])[address] [place] [address] NITRITE PRESENCE IN URINE Negative Normal Negative [facility] Comment on above: Performed By: #### L [id number] ####[employer] Rental Agency Manager: JAZLYN JIMENEZ ([phone])[facility])[address] [place] [address] pH (U) 5.5 [pH] Normal 5.0-8.0 [facility] Comment on above: Performed By: #### L [id number] ####[employer] Rental Agency Manager: JAZLYN JIMENEZ ([phone])[facility] ([facility])[address] [place] [address] Protein (U) [Mass/Vol] Negative Normal Negative [facility] Comment on above: Performed By: #### L [id number] ####[employer] Rental Agency Manager: JAZLYN JIMENEZ ([phone])[facility])[address] [place] [address] Specific gravity (U) [Rel density] 1.017 Normal 1.005-1.030 [facility] Comment on above: Performed By: #### L [id number] ####[employer] Rental Agency Manager: JAZLYN JIMENEZ ([phone])[facility] ([facility])[address] [place] [address] UROBILINOGEN (MG/DL) IN URINE Normal Normal Normal (0-1) [facility] Comment on above: Performed By: #### L [id number] ####[employer] Rental Agency Manager: JAZLYN JIMENEZ ([phone])[facility])[address] [place] [address] COMPREHENSIVE METABOLIC PANE Yuriy 11-08-2024 Albumin [Mass/Vol] 3.0 g/dL Low 3.5-5.0 [facility] Comment on above: Performed By: #### L [id number], [id number] ####[employer] Rental Agency Manager: JAZLYN JIMENEZ ([phone])[facility] ([facility])[address] [place] [address] [place] ALP [Catalytic activity/Vol] 84 U/L Normal 40-150 [facility] Comment on above: Performed By: #### L [id number], [id number] ####[employer] Rental Agency Manager: JAZLYN JIMENEZ ([phone])[facility])[address] [place] [address] ALT [Catalytic activity/Vol] 7 U/L Normal <40 [facility] Comment on above: Performed By: #### L AB17, [id number] ####[employer] Rental Agency Manager: JAZLYN JIMENEZ ([phone])[facility] ([facility])[address] [place] [address] Anion gap [Moles/Vol] 10 mmol/L Normal 3-13 [facility] Comment on above: Performed By: #### L [id number], [id number] ####Car Rental Agency Manager: JAZLYN JIMENEZ ([phone])[facility] ([facility])[address] [place] [address] AST [Catalytic activity/Vol] 14 U/L Normal <34 [facility] Comment on above: Performed By: #### L AB17, [id number] ####[employer] Rental Agency Manager: JAZLYN JIMENEZ ([phone])[facility] ([facility])[address] [place] [address] Bilirubin [Mass/Vol] 0.5 mg/dL Normal <1.2 [facility] Comment on above: Performed By: #### L [id number], [id number] ####[employer] Rental Agency Manager: JAZLYN JIMENEZ ([phone])[facility] ([facility])[address] [place] [address] Calcium [Mass/Vol] 13.5 mg/dL High 8.4-10.2 [facility] Comment on above: Performed By: #### L AB17, [id number] ####[employer] Rental Agency Manager: JAZLYN JIMENEZ ([phone])[facility] ([facility])[address] [place] [address] [place] Chloride [Moles/Vol] 103 mmol/L Normal 98-107 [facility] Comment on above: Performed By: #### L AB17, [id number] ####Car Rental Agency Manager: JAZLYN JIMENEZ ([phone])[facility] ([facility])[address] [place] [address] [place] CO2 [Moles/Vol] 24 mmol/L Normal 22-29 [facility] Comment on above: Performed By: #### L AB17, [id number] ####Car Rental Agency Manager: JAZLYN JIMENEZ ([phone])[facility])[address] [place] [address] [place] Creatinine [Mass/Vol] 1.39 mg/dL High 0.72-1.25 [facility] Comment on above: Performed By: #### L AB17, [id number] ####[employer] Rental Agency Manager: JAZLYN JIMENEZ ([phone])[facility])[address] [place] [address] [place] GLOMERULAR FILTRATION RATE ML/MIN/1.73 SQ M.PREDICTED 61.4 mL/min/1.73m*2 Normal >60.0 [facility] Comment on above: Result Comment: Calc ulation based on the Chronic Kidney Disease Epidemiology Collaboration (CKD-EPI) equation refit without adjustment for race Performed By: #### L AB17, [id number] ####Car Rental Agency Manager: JAZLYN JIMENEZ ([phone])[facility])[address] [place] [address] Glucose [Mass/Vol] 104 mg/dL High 74-100 [facility] Comment on above: Performed By: #### L AB17, [id number] ####Car Rental Agency Manager: JAZLYN JIMENEZ ([phone])[facility])[address] [place] [address] [place] Potassium [Moles/Vol] 4.2 mmol/L Normal 3.5-5.1 [facility] Comment on above: Result Comment: [facility] potassium values may be up to 0.5 mmol/L lower than serum values. Performed By: #### L AB17, [id number] ####[employer] Rental Agency Manager: JAZLYN JIMENEZ ([phone])[facility] ([facility])[address] [place] [address] [place] Protein [Mass/Vol] 7.7 g/dL Normal 6.4-8.3 [facility] Comment on above: Performed By: #### L AB17, [id number] ####[employer] Rental Agency Manager: JAZLYN JIMENEZ ([phone])[facility])[address] [place] [address] [place] Sodium [Moles/Vol] 137 mmol/L Normal 136-145 [facility] Comment on above: Performed By: #### L AB17, [id number] ####[employer] Rental Agency Manager: JAZLYN YATESPARMINDERAman ([phone])[facility] [place] [address] Urea nitrogen [Mass/Vol] 21 mg/dL Normal 9-23 [facility] Comment on above: Performed By: #### L AB17, [id number] ####[employer] Manager: JAZLYN MILANIGLESIA ([phone])[facility] [place] [address] CT PELVIS W IV CONTRASTon CT PELVIS W IV CONTRAST [facility] 1975 [id number] Exam Date/Time: 11/08/2024 16:38 Procedure: CT PELVIS [...] Aox4. Some N/V. Hypotensive 80-90 systolic. Normal [facility] CT Pelvis W contrast Mp 1. [...] Electronically Signed Date/Time: 11/08/2024 5:20 PM EST [employer] SYSTEM Patient Name: KEVAN LA : 1975 [...] Other small bladder diverticuli are also noted. [facility] Julio Sears MD - 11/08/2024 Patient Name: [facility]AN LA [facility] 1975 [id number] Exam Date/Time: 11/08/2024 16:38 Procedure: CT PELVIS [...] MD Electronically Signed Date/Time: 11/08/2024 5:20 PM [facility] Radiology Study observation (narrative) [facility] [place] [facility] Pel[facility] W contrast IVOrder ed By: Julio Sears on 11-08-2024 [facility] Work Phone: Comprehensive metabolic 1998 panelon 11-08-2024 Albumin [Mass/Vol] 3 g/dL Low 3.5 - 5.0 g/dL [facility] ALP [Catalytic activity/Vol] 84 U/L 40 - 150 U/L [facility] ALT [Catalytic activity/Vol] 7 U/L NINF - 40 U/L [facility] Anion gap [Moles/Vol] 10 mmol/L 3 - 13 mmol/L [facility] AST [Catalytic activity/Vol] 14 U/L [facility]/L [facility] Bilirubin [Mass/Vol] 0.5 mg/dL NINF - 1.2 mg/dL [facility] Calcium [Mass/Vol] 13.5 mg/dL High 8.4 - 10. 2 mg/dL [facility] Chloride [Moles/Vol] 103 mmol/L 98 - 10 7 mmol/L [facility] CO2 [Moles/Vol] 24 mmol/L 22 - 29 mmol/L [facility] Creatinine [Mass/Vol] 1.39 mg/dL High 0.72 - 1.25 mg/dL [facility] GFR/1.73 sq M.predicted (S/P/Bld) [Vol rate/Area] 61.4 mL/min - PINF [facility] Comment on above: Calculation based on the Chronic Kidney Disease Epidemiology Collaboration (CKD-EPI) equation refit without adjustment for race Glucose [Mass/Vol] 104 mg/dL High 74 - 100 mg/dL [facility] Interpretation and review of laboratory results Abnormal [facility] Potassium [Moles/Vol] 4.2 mmol/L 3.5 - 5.1 mmol/L [facility] Comment on above: Plasma potassium jeri ues may be up to 0.5 mmol/L lower than serum values. Protein [Mass/Vol] 7.7 g/dL 6.4 - 8.3 g/dL [facility] Sodium [Moles/Vol] 137 mmol/L 136 - 145 mmol/L [facility] Urea nitrogen [Mass/Vol] 21 mg/dL 9 - 23 mg/d L [facility] Consulton 11-08-2024 Consult Pharmacy Managed Vancomycin Dosing [...] creatinine, and vancomycin levels interfaced automatically to [employer] and data has been analyzed and interpreted. [...] Clinical Pharmacist Available via Secure Chat [facility] ED Nursing Noteon 11-08-2024 ED Nursing Note Provider messaged about BP and MAP [facility] ED Nursing Note Provider messaged about orders [facility] ED Nursing Note Patient requested pain medication and dinner. This nurse messaged provider [facility] ED Nursing Note Patient is aware of patients BP and MAP. [facility] ED Nursing Note Liter of NS hung for systolic of 88. IV obtained with blood work and first set of cultures. Will notify doctor of BP. [facility] ED Provider Noteon ED Provider Note Emergency Department Encounter Location: [facility] H5 Patient: [...] 1.8 - (more content not included)... Normal [facility] ED Provider Note EMERGENCY DEPARTMENT ENCOUNTER [...] Resource Strain: Medium Risk (10/12/2024) Received from [facility] Overall Financial Resource Strain (CARDIA) Difficulty of Paying Living Expenses: Somewhat hard Food Insecurity: Food Insecurity Present (10/11/2024) Received from [facility] Hunger Vital Sign Worried About Running Out of Food in the Last Year: Sometimes true Ran Out of Food in the Last Year: Sometimes true Transportation Needs: No Transportation Needs (10/12/2024) Received from [facility] PRAPARE - Transportation Lack of Transportation (Medical): No Lack of Transportation (Non-Medical): No Intimate Partner Violence: Not At Risk (10/11/2024) Received from [facility] Humiliation, Afraid, Rape, and Kick questionnaire Fear of Current or Ex-Partner: No Emotionally Abused: No Physically Abused: No Sexually Abused: No Housing Stability: Low Risk (10/12/2024) Received from [facility] Housing Stability Vital Sign Unable to Pay for Housing in the Last Year: No Number of Times Moved in the Last Year: 1 Homeless in the Last Year: No Recent Concern: Housing Stability - High Risk (09/17/2024) Received from [facility] Housing Stability Vital Sign Unable [...] Emergency Physic (more content not included)... Normal [facility] ED Provider Note Emergency Department Encounter [facility] EMERGENCY DEPT Patient: Kevan La : [...] pressure and wound check. [facility]. Patient has chronic refractory [...] [employer] Fer Kennedy MD 11/08/24 1651 Normal [facility] HEMOGLOBIN A1Con 11-08-2024 Glucose [Mass/Vol] 103 mg/dL Normal [facility] Comment on above: Result Comment: MAYRA Dhillon COMMENTS: HbA1c values of 5.7-6.4 percent indicate an increased risk for developing diabetes mellitus. HbA1c values greater than or equal to 6.5 percent are diagnostic of diabetes mellitus. For diagnosis of diabetes in individuals without unequivocal hyperglycemia, results should be confirmed by repeat testing. Performed By: #### L [id number] ####[employer] Manager: JAZLYN JIMENEZ ([phone])[facility] ([facility])[address] [place] [address] HEMOGLOBIN A1C 5.2 %HbA1C Normal <5.7 [facility] Comment on above: Result Comment: Norm al less than 5.7% Prediabetes 5.7% to 6.4% Diabetes 6.5% or higher --HgbA1C levels may not be accurate in patients who have renal disease, received recent blood transfusions, are anemic, or who have dyshemoglobinemia. Performed By: #### L AB90 ####[employer] Manager: JAZLYN JIMENEZ ([phone])[facility])[address] [place] [address] LACTIC ACID WITH REFLEXon Lactate [Moles/Vol] 1.2 mmol/L Normal 0.5-2.2 [facility] Comment on above: Performed By: #### L [id number] ####[employer] Manager: JAZLYN JIMENEZ ([phone])[facility] ([facility])[address] [place] [address] Laboratory - Chemistry and C hemistry - challengeon 11-08-2024 Average glucose Estimated from glycated hemoglobin (Bld) [Mass/Vol] 103 mg/dL [facility] TSH Qn 0.84 m[IU]/L [facility] Lactate [Moles/Vol] 1.2 mmol/L 0.5 - 2. 2 mmol/L [facility] Laboratory - Hematology and Cell countson 11-08-2024 HbA1c (Bld) [Mass fraction] 5.2 % [facility] Comment on above: Normal less [...] results should be confirmed by repeat testing. [facility] Interpretation and review of laboratory results Normal [facility] THYROID STIMULATING HORMONEo n 11-08-2024 THYROID STIMULATING HORMONE 0.84 uIU/mL Normal 0.35-4.94 [facility] Comment on above: Performed By: #### L AB17, [id number] ####[employer] Manager: JAZLYN JIEMNEZ ([phone])[facility] ([id number] TSH Qnon 11-08-2024 Interpretation and review of laboratory results Normal [facility] Urinalysis complete panel (U )on 11-08-2024 Bilirubin Ql (U) Negative Negative mg/dL [facility] Clarity (U) Clear Clear [facility] Color (U) Light Yellow Lt. Yellow [facility] Glucose Ql (U) Normal Normal (<70) mg/dL [facility] Hemoglobin Ql (U) Negative Negative mg/dL [facility] Interpretation and review of laboratory results Normal [facility] Ketones (U) [Mass/Vol] Negative Negat sulema mg/dL [facility] Leukocyte esterase Test strip Ql (U) Negative Negative Gabe/uL [facility] Nitrite Ql (U) Negative Negative [facility] th pH (U) 5.5 [pH] 5.0 - 8.0 pH [facility] Protein (U) [Mass/Vol] Negative Negat sulema mg/dL [facility] Specific gravity (U) [Rel density] 1.017 1.005 - 1.030 [facility] Urobilinogen (U) [Mass/Vol] Normal Normal (0-1) mg/dL [facility] [address] DOrdered By: Vanda Nolasco on 10-24-2024 Vitamin D 25-Hydroxy 63.4 ng/mL [facility] Comment on above: Vitamin D 25(OH) Sta tus Range Deficiency <20 ng/mL (50nmol/L) Insufficiency 20 - 30 ng/mL (50 - 75 nmol/L) Sufficiency 30 - 100 ng/mL (75 - 250 nmol/L) Toxicity >100 ng/mL (>250 nmol/L) Blood urea nitrogen (BUN)/cr eatinine ratioOrdered By: Julio Nolasco on 10-24-2024 Urea nitrogen/Creatinine [Mass ratio] 14.0 mg/mg 10-20 [facility] Carbon dioxide measurementOr dered By: Julio Nolasco on 10-24-2024 CO2 [Moles/Vol] 26.0 mmol/L 21.0-32.0 [facility] Chloride measurementOrdered By: Julio Nolasco on 10-24-2024 Chloride [Moles/Vol] 104 mmol/L 98-107 [facility] Erythrocyte distribution wid th (RBC) [Ratio]Ordered By: Julio Nolasco on 10-24-2024 Erythrocyte distribution width (RBC) [Entitic vol] 60.6 fL High 35.1-43.9 [facility] Erythrocyte distribution wid th ratioOrdered By: Julio Nolasco on 10-24-2024 Erythrocyte distribution width (RBC) [Ratio] 18.5 % High 11.6-14.6 [facility] Estimated glomerular filtrat ion rate (GFR) AmericanOrdered By: Julio Nolasco on 10-24-2024 Estimated GFR (MDRD) Amer 75 mL/min >60 [facility] Comment on above: GFR Calc Glomerular filtration rate ( GFR) estimationOrdered By: Julio Nolasco on 10-24-2024 Estimated GFR (MDRD) Non-Af Amer 62 mL/min >60 [facility] Comment on above: Non- GFR Calc Glucose measurementOrdered B y: Julio Nolasco on 10-24-2024 Glucose [Mass/Vol] 95 mg/dL 74-106 [facility] Hematocrit Auto (Bld) [Volum e fraction]Ordered By: Julio Nolasco on 10-24-2024 Hematocrit (Bld) [Volume fraction] 26.4 % Low 40-54 [facility] Hemoglobin A1c percentageOrd ered By: Julio Nolasco on 10-24-2024 HbA1c (Bld) [Mass fraction] 5.2 % 3.8-5.6 [facility] Comment on above: Normal < 5.7 % Predi abetic 5.7 - 6.4 % Diabetic >or= 6.5 % Please note range changes. Hemoglobin measurementOrdere d By: Julio Nolasco on 10-24-2024 Hemoglobin (Bld) [Mass/Vol] 8.4 g/dL Low 13.0-16.5 [facility] High density lipoprotein (HD L) measurementOrdered By: Julio Nolasco on 10-24-2024 Cholesterol in HDL [Mass/Vol] 38 mg/dL Low >40 [facility] Comment on above: The drugs N-Acetylcy steine and Metamizole may falsely depress this assay. Reference Range HDL <40 mg/dL Low HDL Cholesterol HDL >or= 60 mg/dL High HDL Cholesterol Low density lipoprotein (LDL ) cholesterol measurementOrdered By: Julio Nolasco on 10-24-2024 Cholesterol in LDL [Mass/Vol] 96 mg/dL 0-130 [facility] MCV (mean corpuscular volume ) determinationOrdered By: Julio Nolasco on 10-24-2024 MCV (RBC) [Entitic vol] 89.5 fL 80-94 [facility] Mean corpuscular hemoglobin (MCH) determinationOrdered By: Julio Nolasco on 10-24-2024 MCH (RBC) [Entitic mass] 28.5 pg 27.0-32.0 [facility] Mean corpuscular hemoglobin concentration (MCHC) determinationOrdered By: Julio Nolasco on 10-24-2024 MCHC (RBC) [Mass/Vol] 31.8 g/dL Low 32-36 [facility] Mean platelet volume determi nationOrdered By: Julio Nolasco on 10-24-2024 Platelet mean volume (Bld) [Entitic vol] 8.7 fL 6.2-12.0 [facility] Platelet countOrdered By: Antwon Nolasco on 10-24-2024 Platelets (Bld) [#/Vol] 536 10*3/uL High 150-450 [facility] Potassium measurementOrdered By: Julio Nolasco on 10-24-2024 Potassium [Moles/Vol] 4.0 mmol/L 3.5-5.1 [facility] RBC Auto (Bld) [#/Vol]Ordere d By: Julio Nolasco on 10-24-2024 RBC (Bld) [#/Vol] 2.95 10*6/uL Low 4.6-6.2 [facility] Serum anion gap measurementO rdered By: Julio Nolasco on 10-24-2024 Anion gap [Moles/Vol] 7 mmol/L 5-15 [facility] Serum or plasma calcium mervat urement (mass/volume)Ordered By: Julio Nolasco on 10-24-2024 Calcium [Mass/Vol] 10.3 mg/dL High 8.5-10.1 [facility] Serum or plasma cholesterol measurement (mass/volume)Ordered By: Julio Nolasco on 10-24-2024 Cholesterol [Mass/Vol] 164 mg/dL <200 [facility] Comment on above: <200 mg/dL Desirable 200-240 mg/dL Borderline >240 mg/dL High Risk Serum or plasma creatinine m easurement (mass/volume)Ordered By: Julio Nolasco on 10-24-2024 Creatinine [Mass/Vol] 1.29 mg/dL 0.70-1.30 [facility] Comment on above: The validity of the calculated GFR & GFRAA in patients over 70 years has not been determined. Clinical correlation is essential. Serum or plasma urea nitroge n measurement (mass/volume)Ordered By: Julio Nolasco on 10-24-2024 Urea nitrogen [Mass/Vol] 18 mg/dL 7-18 [facility] Sodium levelOrdered By: William Nolasco on 10-24-2024 Sodium [Moles/Vol] 137 mmol/L 136-145 [facility] TSH QnOrdered By: Julio johnson on 10-24-2024 Thyroid Stimulating Hormone (TSH) 5.030 uIU/mL High 0.358-3.740 [facility] Triglycerides measurementOrd ered By: Julio Nolasco on 10-24-2024 Triglyceride [Mass/Vol] 150 mg/dL <199 [facility] Comment on above: The drugs N-Acetylcy steine and Metamizole may falsely depress this assay.Serum Triglycerides Reference Interval Normal <150 mg/dL Borderline high 150 - 199 mg/dL High 200 - 499 mg/dL Very High > or = 500 mg/dL Very low density lipoprotein (VLDL) cholesterol measurementOrdered By: Julio Nolasco on 10-24-2024 VLDL Cholesterol 30 mg/dL 5-40 [facility] White blood cell (WBC) count Ordered By: Julio Nolasco on 10-24-2024 WBC (Bld) [#/Vol] 12.2 10*3/uL High 4.4-11.0 [facility] Basic metabolic 2000 panelon 10-23-2024 Anion gap [Moles/Vol] 13 mmol/L 10 - 2 0 mmol/L [facility] Calcium [Mass/Vol] 10.2 mg/dL 8.6 - 10. 6 mg/dL [facility] Chloride [Moles/Vol] 101 mmol/L 98 - 10 7 mmol/L [facility] CO2 [Moles/Vol] 27 mmol/L 21 - 32 mmol/L [facility] Creatinine [Mass/Vol] 1.37 mg/dL High 0.50 - 1.30 mg/dL [facility] GFR/1.73 sq M.predicted among non-blacks MDRD (S/P/Bld) [Vol rate/Area] 62 mL/min/{1.73_m2} - PINF [facility] Glucose [Mass/Vol] 98 mg/dL 74 - 99 mg/dL [facility] Interpretation and review of laboratory results Abnormal [facility] Potassium [Moles/Vol] 4.3 mmol/L 3.5 - 5.3 mmol/L [facility] Sodium [Moles/Vol] 137 mmol/L 136 - 145 mmol/L [facility] Urea nitrogen [Mass/Vol] 20 mg/dL 6 - 23 mg/d L [facility] CBC W Auto Differential pane l (Bld)on 10-23-2024 Basophils (Bld) [#/Vol] 0.08 10*3/uL [facility] Basophils/100 WBC (Bld) 0.6 % 0.0 - 2.0 % [facility] Eosinophils (Bld) [#/Vol] 0.23 10*3/uL [facility] Eosinophils/100 WBC (Bld) 1.7 % 0.0 - 6.0 % [facility] Erythrocyte distribution width (RBC) [Ratio] 18.6 % High 11.5 - 14.5 % [facility] Hematocrit (Bld) [Volume fraction] 26.4 % Low 41.0 - 52.0 % [facility] Hemoglobin (Bld) [Mass/Vol] 8.3 g/dL Low 13.5 - 17.5 g/dL [facility] Immature granulocytes (Bld) [#/Vol] 0.06 10*3/uL [facility] Immature granulocytes/100 WBC (Bld) 0.5 % 0.0 - 0.9 % [facility] Interpretation and review of laboratory results Abnormal [facility] Lymphocytes (Bld) [#/Vol] 1.57 10*3/uL [facility] Lymphocytes/100 WBC (Bld) 11.8 % 13.0 - 44.0 % [facility] MCH (RBC) [Entitic mass] 27.9 pg 26. 0 - 34.0 pg [facility] MCHC (RBC) [Mass/Vol] 31.4 g/dL Low 32.0 - 36.0 g/dL [facility] MCV (RBC) [Entitic vol] 89 fL 80 - 100 fL [facility] Monocytes (Bld) [#/Vol] 1.38 10*3/uL High [facility] Monocytes/100 WBC (Bld) 10.4 % 2.0 - 10.0 % [facility] Neutrophils (Bld) [#/Vol] 9.93 10*3/uL High [facility] Neutrophils/100 WBC (Bld) 75 % 40.0 - 80.0 % [facility] Nucleated RBC/100 WBC (Bld) [Ratio] 0 % [facility] Platelets (Bld) [#/Vol] 525 10*3/uL High [facility] RBC (Bld) [#/Vol] 2.98 10*6/uL Low [facility] WBC (Bld) [#/Vol] 13.3 10*3/uL High [facility] Magnesiumon 10-23-2024 Magnesium [Mass/Vol] 2 mg/dL 1.60 - 2.40 mg/dL [facility] No Panel Informationon 10-23 Interpretation and review of laboratory results Normal [facility] Phosphoruson 10-23-2024 Phosphate [Mass/Vol] 3.7 mg/dL 2.5 - 4 .9 mg/dL [facility] Basic metabolic 2000 panelon 10-22-2024 Anion gap [Moles/Vol] 14 mmol/L 10 - 2 0 mmol/L [facility] Calcium [Mass/Vol] 10.3 mg/dL 8.6 - 10. 6 mg/dL [facility] Chloride [Moles/Vol] 100 mmol/L 98 - 10 7 mmol/L [facility] CO2 [Moles/Vol] 26 mmol/L 21 - 32 mmol/L [facility] Creatinine [Mass/Vol] 1.43 mg/dL High 0.50 - 1.30 mg/dL [facility] GFR/1.73 sq M.predicted among non-blacks MDRD (S/P/Bld) [Vol rate/Area] 59 mL/min/{1.73_m2} Low - PINF [facility] Glucose [Mass/Vol] 111 mg/dL High 74 - 99 mg/dL [facility] Interpretation and review of laboratory results Abnormal [facility] Potassium [Moles/Vol] 4.2 mmol/L 3.5 - 5.3 mmol/L [facility] Sodium [Moles/Vol] 136 mmol/L 136 - 145 mmol/L [facility] Urea nitrogen [Mass/Vol] 18 mg/dL 6 - 23 mg/d L [facility] CBC W Auto Differential pane l (Bld)on 10-22-2024 Basophils (Bld) [#/Vol] 0.06 10*3/uL [facility] Basophils/100 WBC (Bld) 0.4 % 0.0 - 2.0 % [facility] Eosinophils (Bld) [#/Vol] 0.33 10*3/uL [facility] Eosinophils/100 WBC (Bld) 2.4 % 0.0 - 6.0 % [facility] Erythrocyte distribution width (RBC) [Ratio] 18.5 % High 11.5 - 14.5 % [facility] Hematocrit (Bld) [Volume fraction] 26.8 % Low 41.0 - 52.0 % [facility] Hemoglobin (Bld) [Mass/Vol] 8.3 g/dL Low 13.5 - 17.5 g/dL [facility] Immature granulocytes (Bld) [#/Vol] 0.07 10*3/uL [facility] Immature granulocytes/100 WBC (Bld) 0.5 % 0.0 - 0.9 % [facility] Interpretation and review of laboratory results Abnormal [facility] Lymphocytes (Bld) [#/Vol] 1.75 10*3/uL [facility] Lymphocytes/100 WBC (Bld) 12.5 % 13.0 - 44.0 % [facility] MCH (RBC) [Entitic mass] 27.7 pg 26. 0 - 34.0 pg [facility] MCHC (RBC) [Mass/Vol] 31 g/dL Low 32.0 - 36.0 g/dL [facility] MCV (RBC) [Entitic vol] 89 fL 80 - 100 fL [facility] Monocytes (Bld) [#/Vol] 1.29 10*3/uL High [facility] Monocytes/100 WBC (Bld) 9.2 % 2.0 - 10.0 % [facility] Neutrophils (Bld) [#/Vol] 10.52 10*3/uL High [facility] Neutrophils/100 WBC (Bld) 75 % 40.0 - 80.0 % [facility] Nucleated RBC/100 WBC (Bld) [Ratio] 0 % [facility] Platelets (Bld) [#/Vol] 556 10*3/uL High [facility] RBC (Bld) [#/Vol] 3 10*6/uL Low [facility] WBC (Bld) [#/Vol] 14 10*3/uL [facility] Magnesiumon 10-22-2024 Magnesium [Mass/Vol] 1.94 mg/dL 1.60 - 2.40 mg/dL [facility] No Panel Informationon 10-22 Interpretation and review of laboratory results Normal [facility] Phosphoruson 10-22-2024 Phosphate [Mass/Vol] 3.1 mg/dL 2.5 - 4 .9 mg/dL [facility] Basic metabolic 2000 panelon 10-21-2024 Anion gap [Moles/Vol] 14 mmol/L 10 - 2 0 mmol/L [facility] Calcium [Mass/Vol] 10 mg/dL 8.6 - 10. 6 mg/dL [facility] Chloride [Moles/Vol] 103 mmol/L 98 - 10 7 mmol/L [facility] CO2 [Moles/Vol] 26 mmol/L 21 - 32 mmol/L [facility] Creatinine [Mass/Vol] 1.55 mg/dL High 0.50 - 1.30 mg/dL [facility] GFR/1.73 sq M.predicted among non-blacks MDRD (S/P/Bld) [Vol rate/Area] 54 mL/min/{1.73_m2} Low - PINF [facility] Glucose [Mass/Vol] 98 mg/dL 74 - 99 [facility]ation and review of laboratory results Abnormal [facility] Potassium [Moles/Vol] 4.4 mmol/L 3.5 - 5.3 mmol/L [facility] Sodium [Moles/Vol] 139 mmol/L 136 - 145 mmol/L [facility] Urea nitrogen [Mass/Vol] 20 mg/dL 6 - 23 mg/d L [facility] CBC W Auto Differential pane l (Bld)on 10-21-2024 Erythrocyte distribution width (RBC) [Ratio] 18.5 % High 11.5 - 14.5 % [facility] Hematocrit (Bld) [Volume fraction] 26 % Low 41.0 - 52.0 % [facility] Hemoglobin (Bld) [Mass/Vol] 8 g/dL Low 13.5 - 17.5 g/dL [facility] Immature granulocytes (Bld) [#/Vol] 0.07 10*3/uL [facility] Immature granulocytes/100 WBC (Bld) 0.6 % 0.0 - 0.9 % [facility] MCH (RBC) [Entitic mass] 27.9 pg 26. 0 - 34.0 pg [facility] MCHC (RBC) [Mass/Vol] 30.8 g/dL Low 32.0 - 36.0 g/dL [facility] MCV (RBC) [Entitic vol] 91 fL 80 - 100 fL [facility] Nucleated RBC/100 WBC (Bld) [Ratio] 0 % [facility] Platelets (Bld) [#/Vol] 549 10*3/uL High [facility] RBC (Bld) [#/Vol] 2.87 10*6/uL Low [facility] WBC (Bld) [#/Vol] 12.4 10*3/uL [facility] MRSA isol Org specific cx Ql (Nose)Ordered By: Anabelle Guerrero on 10-21-2024 Interpretation and review of laboratory results Normal [facility] Staphylococcus sp identified Org specific cx Nom (Unsp spec) No Staphylococcus aureus isolated [facility] Magnesiumon 10-21-2024 Magnesium [Mass/Vol] 2.03 mg/dL 1.60 - 2.40 mg/dL [facility] Manual differential performe d Ql (Bld)on 10-21-2024 Basophils (Bld) [#/Vol] 0.21 10*3/uL [facility] Basophils/100 WBC (Bld) 1.7 % 0.0 - 2.0 % [facility] Cells Counted Total (Bld) [#] 117 {cells} [facility] Eosinophils (Bld) [#/Vol] 0.21 10*3/uL [facility] Eosinophils/100 WBC (Bld) 1.7 % 0.0 - 6.0 % [facility] Hypochromia Ql (Bld) [facility] Lymphocytes (Bld) [#/Vol] 2.54 10*3/uL [facility] Lymphocytes/100 WBC (Bld) 20.5 % 13.0 - 44.0 % [facility] Monocytes (Bld) [#/Vol] 0.53 10*3/uL [facility] Monocytes/100 WBC (Bld) 4.3 % 2.0 - 10.0 % [facility] RBC morphology finding Nom (Bld) See Below [facility] Segmented neutrophils (Bld) [#/Vol] 8.79 10*3/uL [facility] Segmented neutrophils/100 WBC (Bld) 70.9 % 40.0 - 80.0 % [facility] Variant lymphocytes (Bld) [#/Vol] 0.11 10*3/uL [facility] Variant lymphocytes/100 WBC (Bld) 0.9 % 0.0 - 2.0 % [facility] No Panel Informationon 10-21 Interpretation and review of laboratory results Normal [facility] Interpretation and review of laboratory results Abnormal [facility] Phosphoruson 10-21-2024 Phosphate [Mass/Vol] 3.9 mg/dL 2.5 - 4 .9 mg/dL [facility] US.doppler Lower extremity v ein - bilateralon 10-21-2024 SYNGO [facility] Work Phone: Radiology Study observation (narrative) [facility] Work Phone: US.doppler Lower extremity v ein - bilateralOrdered By: Viki Colin on 10-21-2024 [facility] Work Phone: Vancomycinon 10-21-2024 Vancomycin [Mass/Vol] 4.4 ug/mL Low 5.0 - 20.0 ug/mL [facility] Vancomycin [Mass/Vol]on Interpretation and review of laboratory results Abnormal [facility] Bacteria identified Cx Nom ( Bld)Ordered By: Jennifer Saravia on 10-20-2024 Bacteria identified Aer cx Nom (Bld) Positive [facility] Interpretation and review of laboratory results Abnormal [facility] Microscopic observation Gram stain Nom (Unsp spec) Positive Critically abnormal [facility] Basic metabolic 2000 panelon 10-20-2024 Anion gap [Moles/Vol] 15 mmol/L 10 - 2 0 mmol/L [facility] Calcium [Mass/Vol] 10.4 mg/dL 8.6 - 10. 6 mg/dL [facility] Chloride [Moles/Vol] 104 mmol/L 98 - 10 7 mmol/L [facility] CO2 [Moles/Vol] 27 mmol/L 21 - 32 mmol/L [facility] Creatinine [Mass/Vol] 1.39 mg/dL High 0.50 - 1.30 mg/dL [facility] GFR/1.73 sq M.predicted among non-blacks MDRD (S/P/Bld) [Vol rate/Area] 61 mL/min/{1.73_m2} - PINF [facility] Glucose [Mass/Vol] 102 mg/dL High 74 - 99 mg/dL Uni [facility] Interpretation and review of laboratory results Abnormal [facility] Potassium [Moles/Vol] 4.5 mmol/L 3.5 - 5.3 mmol/L [facility] Sodium [Moles/Vol] 141 mmol/L 136 - 145 mmol/L [facility] Urea nitrogen [Mass/Vol] 17 mg/dL 6 - 23 mg/d L [facility] Bedside PICC Imagingon 10-20 IMAGING Blood CultureOrdered By: Rubina Saravia on 10-20-2024 Bacteria identified Cx Nom (Bld) Staphylococcus hominis Abnormal [facility] CBC W Auto Differential pane l (Bld)on 10-20-2024 Basophils (Bld) [#/Vol] 0.11 10*3/uL High [facility] Basophils/100 WBC (Bld) 0.7 % 0.0 - 2.0 % [facility] Eosinophils (Bld) [#/Vol] 0.35 10*3/uL [facility] Eosinophils/100 WBC (Bld) 2.1 % 0.0 - 6.0 % [facility] Erythrocyte distribution width (RBC) [Ratio] 18.1 % High 11.5 - 14.5 % [facility] Hematocrit (Bld) [Volume fraction] 27.2 % Low 41.0 - 52.0 % [facility] Hemoglobin (Bld) [Mass/Vol] 8.4 g/dL Low 13.5 - 17.5 g/dL [facility] Immature granulocytes (Bld) [#/Vol] 0.12 10*3/uL [facility] Immature granulocytes/100 WBC (Bld) 0.7 % 0.0 - 0.9 % [facility] Interpretation and review of laboratory results Abnormal [facility] Lymphocytes (Bld) [#/Vol] 1.68 10*3/uL [facility] Lymphocytes/100 WBC (Bld) 10.2 % 13.0 - 44.0 % [facility] MCH (RBC) [Entitic mass] 27.9 pg 26. 0 - 34.0 pg [facility] MCHC (RBC) [Mass/Vol] 30.9 g/dL Low 32.0 - 36.0 g/dL [facility] MCV (RBC) [Entitic vol] 90 fL 80 - 100 fL [facility] Monocytes (Bld) [#/Vol] 1.29 10*3/uL High [facility] Monocytes/100 WBC (Bld) 7.8 % 2.0 - 10.0 % [facility] Neutrophils (Bld) [#/Vol] 12.9 10*3/uL High [facility] Neutrophils/100 WBC (Bld) 78.5 % 40.0 - 80.0 % [facility] Nucleated RBC/100 WBC (Bld) [Ratio] 0 % [facility] Platelets (Bld) [#/Vol] 604 10*3/uL High [facility] RBC (Bld) [#/Vol] 3.01 10*6/uL [facility] ([facility]ld[facility] [#/Vol] 16.5 10*3/uL High [facility] Magnesiumon 10-20-2024 Magnesium [Mass/Vol] 2.13 mg/dL 1.60 - 2.40 mg/dL [facility] No Panel Informationon 10-20 Interpretation and review of laboratory results Normal [facility] Phosphoruson 10-20-2024 Phosphate [Mass/Vol] 3.2 mg/dL 2.5 - 4 .9 mg/dL [facility] Basic metabolic 2000 panelon 10-19-2024 Anion gap [Moles/Vol] 17 mmol/L 10 - 2 0 mmol/L [facility] Calcium [Mass/Vol] 10.2 mg/dL 8.6 - 10. 6 mg/dL [facility] Chloride [Moles/Vol] 102 mmol/L 98 - 10 7 mmol/L [facility] CO2 [Moles/Vol] 25 mmol/L 21 - 32 mmol/L [facility] Creatinine [Mass/Vol] 1.67 mg/dL High 0.50 - 1.30 mg/dL [facility] GFR/1.73 sq M.predicted among non-blacks MDRD (S/P/Bld) [Vol rate/Area] 49 mL/min/{1.73_m2} Low - PINF [facility] Glucose [Mass/Vol] 124 mg/dL High 74 - 99 mg[facility] Interpretation and review of laboratory results Abnormal [facility] Potassium [Moles/Vol] 4 mmol/L 3.5 - 5.3 mmol/L [facility] Sodium [Moles/Vol] 140 mmol/L 136 - 145 mmol/L [facility] Urea nitrogen [Mass/Vol] 15 mg/dL 6 - 23 mg/d L [facility] CBC W Auto Differential pane l (Bld)on 10-19-2024 Basophils (Bld) [#/Vol] 0.1 10*3/uL [facility] Basophils/100 WBC (Bld) 0.7 % 0.0 - 2.0 % [facility] Eosinophils (Bld) [#/Vol] 0.41 10*3/uL [facility] Eosinophils/100 WBC (Bld) 2.8 % 0.0 - 6.0 % [facility] Erythrocyte distribution width (RBC) [Ratio] 17.8 % High 11.5 - 14.5 % [facility] Hematocrit (Bld) [Volume fraction] 25.9 % Low 41.0 - 52.0 % [facility] Hemoglobin (Bld) [Mass/Vol] 8 g/dL Low 13.5 - 17.5 g/dL [facility] Immature granulocytes (Bld) [#/Vol] 0.12 10*3/uL [facility] Immature granulocytes/100 WBC (Bld) 0.8 % 0.0 - 0.9 % [facility] Interpretation and review of laboratory results Abnormal [facility] Lymphocytes (Bld) [#/Vol] 2.16 10*3/uL [facility] Lymphocytes/100 WBC (Bld) 14.6 % 13.0 - 44.0 % [facility] MCH (RBC) [Entitic mass] 27.5 pg 26. 0 - 34.0 pg [facility] MCHC (RBC) [Mass/Vol] 30.9 g/dL Low 32.0 - 36.0 g/dL [facility] MCV (RBC) [Entitic vol] 89 fL 80 - 100 fL [facility] Monocytes (Bld) [#/Vol] 1.23 10*3/uL High [facility] Monocytes/100 WBC (Bld) 8.3 % 2.0 - 10.0 % [facility] Neutrophils (Bld) [#/Vol] 10.82 10*3/uL [facility] Neutrophils/100 WBC (Bld) 72.8 % 40.0 - 80.0 % [facility] Nucleated RBC/100 WBC (Bld) [Ratio] 0 % [facility] Platelets (Bld) [#/Vol] 609 10*3/uL High [facility] RBC (Bld) [#/Vol] 2.91 10*6/uL [facility] WBC (Bld) [#/Vol] 14.8 10*3/uL High [facility] Comprehensive metabolic 2000 panelon 10-19-2024 Albumin BCP dye [Mass/Vol] 3.4 g/dL 3.4 - 5.0 g/dL [facility] ALP [Catalytic activity/Vol] 76 U/L 33 - 120 U/L [facility] ALT With P-5'-P [Catalytic activity/Vol] 28 U/L 10 - 52 U/L [facility] Anion gap [Moles/Vol] 11 mmol/L 10 - 2 0 mmol/L [facility] AST With P-5'-P [Catalytic activity/Vol] 25 U/L 9 - 39 U/L [facility] Bilirubin [Mass/Vol] 0.2 mg/dL 0.0 - 1 .2 mg/dL [facility] Calcium [Mass/Vol] 10.2 mg/dL 8.6 - 10. 6 mg/dL [facility] Chloride [Moles/Vol] 103 mmol/L 98 - 10 7 mmol/L [facility] CO2 [Moles/Vol] 29 mmol/L 21 - 32 mmol/L [facility] Creatinine [Mass/Vol] 1.55 mg/dL High 0.50 - 1.30 mg/dL [facility] GFR/1.73 sq M.predicted among non-blacks MDRD (S/P/Bld) [Vol rate/Area] 54 mL/min/{1.73_m2} Low - PINF [facility] Glucose [Mass/Vol] 98 mg/dL 74 - 99 [facility]ation and review of laboratory results Abnormal [facility] Potassium [Moles/Vol] 4.3 mmol/L 3.5 - 5.3 mmol/L [facility] Protein [Mass/Vol] 7.2 g/dL 6.4 - 8.2 g/dL [facility] Sodium [Moles/Vol] 139 mmol/L 136 - 145 mmol/L [facility] Urea nitrogen [Mass/Vol] 16 mg/dL 6 - 23 mg/d L [facility] Magnesiumon 10-19-2024 Magnesium [Mass/Vol] 2.25 mg/dL 1.60 - 2.40 mg/dL [facility] Magnesium [Mass/Vol] 2.03 mg/dL 1.60 - 2.40 mg/dL [facility] Magnesium [Mass/Vol]on 10-19 Interpretation and review of laboratory results Normal [facility] No Panel Informationon 10-19 Interpretation and review of laboratory results Normal [facility] Phosphate [Mass/Vol]on 10-19 Interpretation and review of laboratory results Normal [facility] Phosphoruson 10-19-2024 Phosphate [Mass/Vol] 3.4 mg/dL 2.5 - 4 .9 mg/dL [facility] Phosphate [Mass/Vol] 3.8 mg/dL 2.5 - 4 .9 mg/dL [facility] Vancomycinon 10-19-2024 Vancomycin [Mass/Vol] 16.6 ug/mL 5.0 - 20.0 ug/mL [facility] Vancomycin [Mass/Vol]on Interpretation and review of laboratory results Normal [facility] Bacteria identified Cx Nom ( Bld)Ordered By: Mary Milton on 10-18-2024 Bacteria identified Aer cx Nom (Bld) Positive [facility] Interpretation and review of laboratory results Abnormal [facility] Microscopic observation Gram stain Nom (Unsp spec) Positive Critically abnormal [facility] Blood CultureOrdered By: Bia Milton on 10-18-2024 Bacteria identified Cx Nom (Bld) Marta puentesa Abnormal [facility] CBC W Auto Differential pane l (Bld)on 10-18-2024 Basophils (Bld) [#/Vol] 0.09 10*3/uL [facility] Basophils/100 WBC (Bld) 0.6 % 0.0 - 2.0 % [facility] Eosinophils (Bld) [#/Vol] 0.35 10*3/uL [facility] Eosinophils/100 WBC (Bld) 2.2 % 0.0 - 6.0 % [facility] Erythrocyte distribution width (RBC) [Ratio] 17.8 % High 11.5 - 14.5 % [facility] Hematocrit (Bld) [Volume fraction] 27.3 % Low 41.0 - 52.0 % [facility] Hemoglobin (Bld) [Mass/Vol] 8.4 g/dL Low 13.5 - 17.5 g/dL [facility] Immature granulocytes (Bld) [#/Vol] 0.17 10*3/uL [facility] Immature granulocytes/100 WBC (Bld) 1.1 % High 0.0 - 0.9 % [facility] Interpretation and review of laboratory results Abnormal [facility] Lymphocytes (Bld) [#/Vol] 2.56 10*3/uL [facility] Lymphocytes/100 WBC (Bld) 16.4 % 13.0 - 44.0 % [facility] MCH (RBC) [Entitic mass] 27.8 pg 26. 0 - 34.0 pg [facility] MCHC (RBC) [Mass/Vol] 30.8 g/dL Low 32.0 - 36.0 g/dL [facility] MCV (RBC) [Entitic vol] 90 fL 80 - 100 fL [facility] Monocytes (Bld) [#/Vol] 1.3 10*3/uL High [facility] Monocytes/100 WBC (Bld) 8.3 % 2.0 - 10.0 % [facility] Neutrophils (Bld) [#/Vol] 11.1 10*3/uL [facility] Neutrophils/100 WBC (Bld) 71.4 % 40.0 - 80.0 % [facility] Nucleated RBC/100 WBC (Bld) [Ratio] 0 % [facility] Platelets (Bld) [#/Vol] 605 10*3/uL High [facility] RBC (Bld) [#/Vol] 3.02 10*6/uL Low [facility] WBC (Bld) [#/Vol] 15.6 10*3/uL [facility] Comprehensive metabolic 2000 panelon 10-18-2024 Albumin BCP dye [Mass/Vol] 3.4 g/dL 3.4 - 5.0 g/dL [facility] ALP [Catalytic activity/Vol] 70 U/L 33 - 120 U/L [facility] ALT With P-5'-P [Catalytic activity/Vol] 17 U/L 10 - 52 U/L [facility] Anion gap [Moles/Vol] 15 mmol/L 10 - 2 0 mmol/L [facility] AST With P-5'-P [Catalytic activity/Vol] 18 U/L 9 - 39 U/L [facility] Bilirubin [Mass/Vol] 0.2 mg/dL 0.0 - 1 .2 mg/dL [facility] Calcium [Mass/Vol] 10.1 mg/dL 8.6 - 10. 6 mg/dL [facility] Chloride [Moles/Vol] 101 mmol/L 98 - 10 7 mmol/L [facility] CO2 [Moles/Vol] 27 mmol/L 21 - 32 mmol/L [facility] Creatinine [Mass/Vol] 1.72 mg/dL High 0.50 - 1.30 mg/dL [facility] GFR/1.73 sq M.predicted among non-blacks MDRD (S/P/Bld) [Vol rate/Area] 48 mL/min/{1.73_m2} Low - PINF [facility] Glucose [Mass/Vol] 97 mg/dL 74 - 99 [facility] Interpretation and review of laboratory results Abnormal [facility] Potassium [Moles/Vol] 4 mmol/L 3.5 - 5.3 mmol/L [facility] Protein [Mass/Vol] 7.1 g/dL 6.4 - 8.2 g/dL [facility] Sodium [Moles/Vol] 139 mmol/L 136 - 145 mmol/L [facility] Urea nitrogen [Mass/Vol] 17 mg/dL 6 - 23 mg/d L [facility] Magnesiumon 10-18-2024 Magnesium [Mass/Vol] 2.13 mg/dL 1.60 - 2.40 mg/dL [facility] No Panel Informationon 10-18 [facility] Interpretation and review of laboratory results Normal [facility] Phosphoruson 10-18-2024 Phosphate [Mass/Vol] 3.2 mg/dL 2.5 - 4 .9 mg/dL [facility] Bacteria identified Cx Nom ( Bld)on 10-17-2024 Interpretation and review of laboratory results Normal [facility] Bacteria identified Cx Nom ( Unsp spec)Ordered By: Mari Monique on 10-17-2024 Beta lactamase organism identified Nom (Isol) Positive [facility] Microscopic observation Gram stain Nom (Unsp spec) No polymorphonuclear leukocytes seen [facility] Microscopic observation Gram stain Nom (Unsp spec) No organisms seen [facility] CBC W Auto Differential pane l (Bld)on 10-17-2024 Basophils (Bld) [#/Vol] 0.09 10*3/uL [facility] Basophils/100 WBC (Bld) 0.5 % 0.0 - 2.0 % [facility] Eosinophils (Bld) [#/Vol] 0.27 10*3/uL [facility] Eosinophils/100 WBC (Bld) 1.6 % 0.0 - 6.0 % [facility] Erythrocyte distribution width (RBC) [Ratio] 16.9 % High 11.5 - 14.5 % [facility] Hematocrit (Bld) [Volume fraction] 25.1 % Low 41.0 - 52.0 % [facility] Hemoglobin (Bld) [Mass/Vol] 8.5 g/dL Low 13.5 - 17.5 g/dL [facility] Immature granulocytes (Bld) [#/Vol] 0.13 10*3/uL [facility] Immature granulocytes/100 WBC (Bld) 0.8 % 0.0 - 0.9 % [facility] Interpretation and review of laboratory results Abnormal [facility] Lymphocytes (Bld) [#/Vol] 2.37 10*3/uL [facility] Lymphocytes/100 WBC (Bld) 14.2 % 13.0 - 44.0 % [facility] MCH (RBC) [Entitic mass] 28.1 pg 26. 0 - 34.0 pg [facility] MCHC (RBC) [Mass/Vol] 33.9 g/dL 32.0 - 36.0 g/dL [facility] MCV (RBC) [Entitic vol] 83 fL 80 - 100 fL [facility] Monocytes (Bld) [#/Vol] 1.31 10*3/uL [facility] Monocytes/100 WBC (Bld) 7.8 % 2.0 - 10.0 % [facility] Neutrophils (Bld) [#/Vol] 12.54 10*3/uL [facility] Neutrophils/100 WBC (Bld) 75.1 % 40.0 - 80.0 % [facility] Nucleated RBC/100 WBC (Bld) [Ratio] 0 % [facility] Platelets (Bld) [#/Vol] 590 10*3/uL High [facility] RBC (Bld) [#/Vol] 3.02 10*6/uL Low [facility] WBC (Bld) [#/Vol] 16.7 10*3/uL [facility] Comprehensive metabolic 2000 panelon 10-17-2024 Albumin BCP dye [Mass/Vol] 3.4 g/dL 3.4 - 5.0 g/dL [facility] ALP [Catalytic activity/Vol] 62 U/L 33 - 120 U/L [facility] ALT With P-5'-P [Catalytic activity/Vol] 11 U/L 10 - 52 U/L [facility] Anion gap [Moles/Vol] 16 mmol/L 10 - 2 0 mmol/L [facility] AST With P-5'-P [Catalytic activity/Vol] 35 U/L 9 - 39 U/L [facility] Bilirubin [Mass/Vol] 0.3 mg/dL 0.0 - 1 .2 mg/dL [facility] Calcium [Mass/Vol] 10.2 mg/dL 8.6 - 10. 6 mg/dL [facility] Chloride [Moles/Vol] 103 mmol/L 98 - 10 7 mmol/L [facility] CO2 [Moles/Vol] 25 mmol/L 21 - 32 mmol/L [facility] Creatinine [Mass/Vol] 1.62 mg/dL High 0.50 - 1.30 mg/dL [facility] GFR/1.73 sq M.predicted among non-blacks MDRD (S/P/Bld) [Vol rate/Area] 51 mL/min/{1.73_m2} Low - PINF [facility] Glucose [Mass/Vol] 91 mg/dL 74 - 99 mg/dL [facility] Potassium [Moles/Vol] 5.6 mmol/L High 3.5 - 5.3 mmol/L [facility] Protein [Mass/Vol] 7.3 g/dL 6.4 - 8.2 g/dL [facility] Sodium [Moles/Vol] 138 mmol/L 136 - 145 mmol/L [facility] Urea nitrogen [Mass/Vol] 14 mg/dL 6 - 23 mg/d L [facility] Laboratory - Microbiology an d Antimicrobial susceptibilityon 10-17-2024 Bacteria identified Cx Nom (Bld) No growth at 4 days - FINAL REPORT [facility] Magnesiumon 10-17-2024 Magnesium [Mass/Vol] 2.25 mg/dL 1.60 - 2.40 mg/dL [facility] Magnesium [Mass/Vol] 2.52 mg/dL High 1.60 - 2.40 mg/dL [facility] Magnesium [Mass/Vol]on 10-17 Interpretation and review of laboratory results Normal [facility] No Panel Informationon 10-17 [facility] Interpretation and review of laboratory results Normal [facility] Interpretation and review of laboratory results Abnormal [facility] Phosphoruson 10-17-2024 Phosphate [Mass/Vol] 4.1 mg/dL 2.5 - 4 .9 mg/dL [facility] Renal function 2000 panelon 10-17-2024 Albumin BCP dye [Mass/Vol] 3.7 g/dL 3.4 - 5.0 g/dL [facility] Anion gap [Moles/Vol] 14 mmol/L 10 - 2 0 mmol/L [facility] Calcium [Mass/Vol] 10.4 mg/dL 8.6 - 10. 6 mg/dL [facility] Chloride [Moles/Vol] 99 mmol/L 98 - 10 7 mmol/L [facility] CO2 [Moles/Vol] 27 mmol/L 21 - 32 mmol/L [facility] Creatinine [Mass/Vol] 1.62 mg/dL High 0.50 - 1.30 mg/dL [facility] GFR/1.73 sq M.predicted among non-blacks MDRD (S/P/Bld) [Vol rate/Area] 51 mL/min/{1.73_m2} Low - PINF [facility] Glucose [Mass/Vol] 98 mg/dL 74 - 99 mg/dL [facility] Interpretation and review of laboratory results Abnormal [facility] Phosphate [Mass/Vol] 3.7 mg/dL 2.5 - 4 .9 mg/dL [facility] Potassium [Moles/Vol] 4.3 mmol/L 3.5 - 5.3 mmol/L [facility] Sodium [Moles/Vol] 136 mmol/L 136 - 145 mmol/L [facility] Urea nitrogen [Mass/Vol] 17 mg/dL 6 - 23 mg/d L [facility] Tissue/Wound Culture/SmearOr dered By: Mari Monique on 10-17-2024 Bacteria identified Cx Nom (Unsp spec) (1+) Rare Mixed Anaerobic Bacteria [facility] Bacteria identified Cx Nom (Unsp spec) Negative [facility] Vancomycinon 10-17-2024 Vancomycin [Mass/Vol] 16.8 ug/mL 5.0 - 20.0 ug/mL [facility] Vancomycin [Mass/Vol]on 09-20 [facility] Blood type and Indirect anti body screen panel (Bld)on 10-16-2024 ABO group Nom (Bld) [facility] antibody screen Ql Negative [facility] D Ag Ql (Bld) Positive [facility] CBC W Auto Differential pane l (Bld)on 10-16-2024 Basophils (Bld) [#/Vol] 0.1 10*3/uL [facility] Basophils/100 WBC (Bld) 0.7 % 0.0 - 2.0 % [facility] Eosinophils (Bld) [#/Vol] 0.41 10*3/uL [facility] Eosinophils/100 WBC (Bld) 2.8 % 0.0 - 6.0 % [facility] Erythrocyte distribution width (RBC) [Ratio] 16.9 % High 11.5 - 14.5 % [facility] Hematocrit (Bld) [Volume fraction] 27.8 % Low 41.0 - 52.0 % [facility] Hemoglobin (Bld) [Mass/Vol] 8.9 g/dL Low 13.5 - 17.5 g/dL [facility] Immature granulocytes (Bld) [#/Vol] 0.17 10*3/uL [facility] Immature granulocytes/100 WBC (Bld) 1.2 % High 0.0 - 0.9 % [facility] Interpretation and review of laboratory results Abnormal [facility] Lymphocytes (Bld) [#/Vol] 2.54 10*3/uL [facility] Lymphocytes/100 WBC (Bld) 17.6 % 13.0 - 44.0 % [facility] MCH (RBC) [Entitic mass] 27.8 pg 26. 0 - 34.0 pg [facility] MCHC (RBC) [Mass/Vol] 32 g/dL 32.0 - 36.0 g/dL [facility] MCV (RBC) [Entitic vol] 87 fL 80 - 100 fL [facility] Monocytes (Bld) [#/Vol] 1.08 10*3/uL High [facility] Monocytes/100 WBC (Bld) 7.5 % 2.0 - 10.0 % [facility] Neutrophils (Bld) [#/Vol] 10.11 10*3/uL High [facility] Neutrophils/100 WBC (Bld) 70.2 % 40.0 - 80.0 % [facility] Nucleated RBC/100 WBC (Bld) [Ratio] 0 % [facility] Platelets (Bld) [#/Vol] 633 10*3/uL High [facility] RBC (Bld) [#/Vol] 3.2 10*6/uL Low [facility] WBC (Bld) [#/Vol] 14.4 10*3/uL [facility] Comprehensive metabolic 2000 panelon 10-16-2024 Albumin BCP dye [Mass/Vol] 3.4 g/dL 3.4 - 5.0 g/dL [facility] ALP [Catalytic activity/Vol] 60 U/L 33 - 120 U/L [facility] ALT With P-5'-P [Catalytic activity/Vol] 10 U/L 10 - 52 U/L [facility] Anion gap [Moles/Vol] 13 mmol/L 10 - 2 0 mmol/L [facility] AST With P-5'-P [Catalytic activity/Vol] 11 U/L 9 - 39 U/L [facility] Bilirubin [Mass/Vol] 0.2 mg/dL 0.0 - 1 .2 mg/dL [facility] Calcium [Mass/Vol] 10 mg/dL 8.6 - 10. 6 mg/dL [facility] Chloride [Moles/Vol] 103 mmol/L 98 - 10 7 mmol/L [facility] CO2 [Moles/Vol] 26 mmol/L 21 - 32 mmol/L [facility] Creatinine [Mass/Vol] 1.5 mg/dL High 0.50 - 1.30 mg/dL [facility] GFR/1.73 sq M.predicted among non-blacks MDRD (S/P/Bld) [Vol rate/Area] 56 mL/min/{1.73_m2} Low - PINF [facility] Glucose [Mass/Vol] 104 mg/dL High 74 - 99 mg/dL Uni [facility] Interpretation and review of laboratory results Abnormal [facility] Potassium [Moles/Vol] 4.3 mmol/L 3.5 - 5.3 mmol/L [facility] Protein [Mass/Vol] 7.2 g/dL 6.4 - 8.2 g/dL [facility] Sodium [Moles/Vol] 138 mmol/L 136 - 145 mmol/L [facility] Urea nitrogen [Mass/Vol] 12 mg/dL 6 - 23 mg/d L [facility] Electrocardiogram, 12-lead P RN ACS symptomsOrdered By: Campos Villa on 10-16-2024 Atrial Rate 126 BPM [facility] Work Phone: [phone] P [place] 72 degrees [facility] Work Phone: [phone] P Offset 218 ms [facility] Work Phone: [phone] P Onset 153 ms [facility] Work Phone: [phone] DC Interval 144 ms [facility] Work Phone: [phone] Q Onset 225 ms [facility] Work Phone: [phone] QRS Count 21 beats [facility] Work Phone: [phone] QRS Duration 94 ms [facility] Work Phone: [phone] QT Interval 324 ms [facility] Work Phone: [phone] QTC Calculation(Bazett) 469 ms U [facility] Work Phone: [phone] QTC Fredericia 415 ms [facility] Work Phone: [phone] R [place] 49 degrees [facility] Work Phone: [phone] T [place] 101 degrees [facility] Work Phone: [phone] T Offset 387 ms [facility] Work Phone: [phone] Ventricular Rate 126 BPM [facility] Work Phone: [facility] Work Phone: Electrocardiogram, 12-lead P RN ACS symptomson 10-16-2024 MUSE [facility] Work Phone: Magnesiumon 10-16-2024 Magnesium [Mass/Vol] 2.16 mg/dL 1.60 - 2.40 mg/dL [facility] No Panel Informationon 10-16 Interpretation and review of laboratory results [facility] PT and aPTT panel Coag (PPP) on 10-16-2024 aPTT Coag (PPP) [Time] 30 s Un [facility] INR Coag (PPP) [Relative time] 1 {INR} 0.9 - 1.1 [facility] Interpretation and review of laboratory results Normal [facility] PT Coag (PPP) [Time] 11.4 s [facility] Phosphoruson 10-16-2024 Phosphate [Mass/Vol] 3.2 mg/dL 2.5 - 4 .9 mg/dL [facility] CBC W Auto Differential pane l (Bld)on 10-15-2024 Basophils (Bld) [#/Vol] 0.1 10*3/uL [facility] Basophils/100 WBC (Bld) 0.8 % 0.0 - 2.0 % [facility] Eosinophils (Bld) [#/Vol] 0.4 10*3/uL [facility] Eosinophils/100 WBC (Bld) 3.1 % 0.0 - 6.0 % [facility] Erythrocyte distribution width (RBC) [Ratio] 17.1 % High 11.5 - 14.5 % [facility] Hematocrit (Bld) [Volume fraction] 29.1 % Low 41.0 - 52.0 % [facility] Hemoglobin (Bld) [Mass/Vol] 9.2 g/dL Low 13.5 - 17.5 g/dL [facility] Immature granulocytes (Bld) [#/Vol] 0.09 10*3/uL [facility] Immature granulocytes/100 WBC (Bld) 0.7 % 0.0 - 0.9 % [facility] Interpretation and review of laboratory results Abnormal [facility] Lymphocytes (Bld) [#/Vol] 2.77 10*3/uL [facility] Lymphocytes/100 WBC (Bld) 21.4 % 13.0 - 44.0 % [facility] MCH (RBC) [Entitic mass] 28.4 pg 26. 0 - 34.0 pg [facility] MCHC (RBC) [Mass/Vol] 31.6 g/dL Low 32.0 - 36.0 g/dL [facility] MCV (RBC) [Entitic vol] 90 fL 80 - 100 fL [facility] Monocytes (Bld) [#/Vol] 0.98 10*3/uL [facility] Monocytes/100 WBC (Bld) 7.6 % 2.0 - 10.0 % [facility] Neutrophils (Bld) [#/Vol] 8.58 10*3/uL High [facility] Neutrophils/100 WBC (Bld) 66.4 % 40.0 - 80.0 % [facility] Nucleated RBC/100 WBC (Bld) [Ratio] 0 % [facility] Platelets (Bld) [#/Vol] 635 10*3/uL High [facility] RBC (Bld) [#/Vol] 3.24 10*6/uL Low [facility] WBC (Bld) [#/Vol] 12.9 10*3/uL High [facility] Comprehensive metabolic 2000 panelon 10-15-2024 Albumin BCP dye [Mass/Vol] 3.3 g/dL Low 3.4 - 5.0 g/dL [facility] ALP [Catalytic activity/Vol] 60 U/L 33 - 120 U/L [facility] ALT With P-5'-P [Catalytic activity/Vol] 9 U/L Low 10 - 52 U/L [facility] Anion gap [Moles/Vol] 13 mmol/L 10 - 2 0 mmol/L [facility] AST With P-5'-P [Catalytic activity/Vol] 9 U/L 9 - 39 U/L [facility] Bilirubin [Mass/Vol] 0.2 mg/dL 0.0 - 1 .2 mg/dL [facility] Calcium [Mass/Vol] 9.5 mg/dL 8.6 - 10. 6 mg/dL [facility] Chloride [Moles/Vol] 102 mmol/L 98 - 10 7 mmol/L [facility] CO2 [Moles/Vol] 27 mmol/L 21 - 32 mmol/L [facility] Creatinine [Mass/Vol] 1.53 mg/dL High 0.50 - 1.30 mg/dL [facility] GFR/1.73 sq M.predicted among non-blacks MDRD (S/P/Bld) [Vol rate/Area] 55 mL/min/{1.73_m2} Low - PINF [facility] Glucose [Mass/Vol] 94 mg/dL 74 - 99 mg/[facility] Interpretation and review of laboratory results Abnormal [facility] Potassium [Moles/Vol] 4 mmol/L 3.5 - 5.3 mmol/L [facility] Protein [Mass/Vol] 6.9 g/dL 6.4 - 8.2 g/dL [facility] Sodium [Moles/Vol] 138 mmol/L 136 - 145 mmol/L [facility] Urea nitrogen [Mass/Vol] 10 mg/dL 6 - 23 mg/d L [facility] Magnesiumon 10-15-2024 Magnesium [Mass/Vol] 2.11 mg/dL 1.60 - 2.40 mg/dL [facility] No Panel Informationon 10-15 Interpretation and review of laboratory results Normal [facility] Phosphoruson 10-15-2024 Phosphate [Mass/Vol] 2.5 mg/dL 2.5 - 4 .9 mg/dL [facility] CBC W Auto Differential pane l (Bld)on 10-14-2024 Basophils (Bld) [#/Vol] 0.08 10*3/uL [facility] Basophils/100 WBC (Bld) 0.5 % 0.0 - 2.0 % [facility] Eosinophils (Bld) [#/Vol] 0.3 10*3/uL [facility] Eosinophils/100 WBC (Bld) 2 % 0.0 - 6.0 % [facility] Erythrocyte distribution width (RBC) [Ratio] 17.2 % High 11.5 - 14.5 % [facility] Hematocrit (Bld) [Volume fraction] 26.6 % Low 41.0 - 52.0 % [facility] Hemoglobin (Bld) [Mass/Vol] 8.1 g/dL Low 13.5 - 17.5 g/dL [facility] Immature granulocytes (Bld) [#/Vol] 0.13 10*3/uL [facility] Immature granulocytes/100 WBC (Bld) 0.9 % 0.0 - 0.9 % [facility] Interpretation and review of laboratory results Abnormal [facility] Lymphocytes (Bld) [#/Vol] 1.96 10*3/uL [facility] Lymphocytes/100 WBC (Bld) 13.1 % 13.0 - 44.0 % [facility] MCH (RBC) [Entitic mass] 27.6 pg 26. 0 - 34.0 pg [facility] MCHC (RBC) [Mass/Vol] 30.5 g/dL Low 32.0 - 36.0 g/dL [facility] MCV (RBC) [Entitic vol] 91 fL 80 - 100 fL [facility] Monocytes (Bld) [#/Vol] 0.84 10*3/uL [facility] Monocytes/100 WBC (Bld) 5.6 % 2.0 - 10.0 % [facility] Neutrophils (Bld) [#/Vol] 11.69 10*3/uL High [facility] Neutrophils/100 WBC (Bld) 77.9 % 40.0 - 80.0 % [facility] Nucleated RBC/100 WBC (Bld) [Ratio] 0 % [facility] Platelets (Bld) [#/Vol] 561 10*3/uL High [facility] RBC (Bld) [#/Vol] 2.94 10*6/uL Low [facility] WBC (Bld) [#/Vol] 15 10*3/uL High [facility] Comprehensive metabolic 2000 panelon 10-14-2024 Albumin BCP dye [Mass/Vol] 3.1 g/dL Low 3.4 - 5.0 g/dL [facility] ALP [Catalytic activity/Vol] 60 U/L 33 - 120 U/L [facility] ALT With P-5'-P [Catalytic activity/Vol] 9 U/L Low 10 - 52 U/L [facility] Anion gap [Moles/Vol] 13 mmol/L 10 - 2 0 mmol/L [facility] AST With P-5'-P [Catalytic activity/Vol] 6 U/L Low 9 - 39 U/L [facility] Bilirubin [Mass/Vol] 0.2 mg/dL 0.0 - 1 .2 mg/dL [facility] Calcium [Mass/Vol] 9 mg/dL 8.6 - 10. 6 mg/dL [facility] Chloride [Moles/Vol] 102 mmol/L 98 - 10 7 mmol/L [facility] CO2 [Moles/Vol] 26 mmol/L 21 - 32 mmol/L [facility] Creatinine [Mass/Vol] 1.44 mg/dL High 0.50 - 1.30 mg/dL [facility] GFR/1.73 sq M.predicted among non-blacks MDRD (S/P/Bld) [Vol rate/Area] 59 mL/min/{1.73_m2} Low - PINF [facility] Glucose [Mass/Vol] 163 mg/dL High 74 - 99 mg/dL Uni [facility] Interpretation and review of laboratory results Abnormal [facility] Potassium [Moles/Vol] 3.9 mmol/L 3.5 - 5.3 mmol/L [facility] Protein [Mass/Vol] 6.4 g/dL 6.4 - 8.2 g/dL [facility] Sodium [Moles/Vol] 137 mmol/L 136 - 145 mmol/L [facility] Urea nitrogen [Mass/Vol] 15 mg/dL 6 - 23 mg/d L [facility] Extra Urine Rhodes Tubeon 09-19 Extra Tube Hold for add-ons. [facility] Lactateon 10-14-2024 Lactate [Moles/Vol] 1.2 mmol/L 0.4 - 2. 0 mmol/L [facility] Lactate [Moles/Vol] 2.3 mmol/L High 0.4 - 2. 0 mmol/L [facility] Lactate [Moles/Vol]on 2024 Interpretation and review of laboratory results Normal [facility] Interpretation and review of laboratory results Abnormal [facility] No Panel Informationon 10-14 [facility] Vancomycinon 10-14-2024 Vancomycin [Mass/Vol] 14.7 ug/mL 5.0 - 20.0 ug/mL [facility] Vancomycin [Mass/Vol]on 09-19 Interpretation and review of laboratory results Normal [facility] Bacteria identified Cx Nom ( Unsp spec)Ordered By: Alejandra Andrade on 10-13-2024 Beta lactamase organism identified Nom (Isol) Positive [facility] Interpretation and review of laboratory results Abnormal [facility] Microscopic observation Gram stain Nom (Unsp spec) No polymorphonuclear leukocytes seen Abnormal [facility] Microscopic observation Gram stain Nom (Unsp spec) Positive Abnormal [facility] CBC W Auto Differential pane l (Bld)on 10-13-2024 Basophils (Bld) [#/Vol] 0.06 10*3/uL [facility] Basophils/100 WBC (Bld) 0.2 % 0.0 - 2.0 % [facility] Eosinophils (Bld) [#/Vol] 0.18 10*3/uL [facility] Eosinophils/100 WBC (Bld) 0.7 % 0.0 - 6.0 % [facility] Erythrocyte distribution width (RBC) [Ratio] 16.9 % High 11.5 - 14.5 % [facility] Hematocrit (Bld) [Volume fraction] 25.6 % Low 41.0 - 52.0 % [facility] Hemoglobin (Bld) [Mass/Vol] 8.3 g/dL Low 13.5 - 17.5 g/dL [facility] Immature granulocytes (Bld) [#/Vol] 0.15 10*3/uL [facility] Immature granulocytes/100 WBC (Bld) 0.6 % 0.0 - 0.9 % [facility] Interpretation and review of laboratory results Abnormal [facility] Lymphocytes (Bld) [#/Vol] 2.13 10*3/uL [facility] Lymphocytes/100 WBC (Bld) 8.9 % 13.0 - 44.0 % [facility] MCH (RBC) [Entitic mass] 28.4 pg 26. 0 - 34.0 pg [facility] MCHC (RBC) [Mass/Vol] 32.4 g/dL 32.0 - 36.0 g/dL [facility] MCV (RBC) [Entitic vol] 88 fL 80 - 100 fL [facility] Monocytes (Bld) [#/Vol] 1.37 10*3/uL High [facility] Monocytes/100 WBC (Bld) 5.7 % 2.0 - 10.0 % [facility] Neutrophils (Bld) [#/Vol] 20.15 10*3/uL High [facility] Neutrophils/100 WBC (Bld) 83.9 % 40.0 - 80.0 % [facility] Nucleated RBC/100 WBC (Bld) [Ratio] 0 % [facility] Platelets (Bld) [#/Vol] 579 10*3/uL High [facility] RBC (Bld) [#/Vol] 2.92 10*6/uL Low [facility] WBC (Bld) [#/Vol] 24 10*3/uL High [facility] Erythrocyte distribution width (RBC) [Ratio] 17 % High 11.5 - 14.5 % [facility] Hematocrit (Bld) [Volume fraction] 34.1 % Low 41.0 - 52.0 % [facility] Hemoglobin (Bld) [Mass/Vol] 10.5 g/dL Low 13.5 - 17.5 g/dL [facility] Immature granulocytes (Bld) [#/Vol] 0.32 10*3/uL [facility] Immature granulocytes/100 WBC (Bld) 1.1 % High 0.0 - 0.9 % [facility] MCH (RBC) [Entitic mass] 27.9 pg 26. 0 - 34.0 pg [facility] MCHC (RBC) [Mass/Vol] 30.8 g/dL Low 32.0 - 36.0 g/dL [facility] MCV (RBC) [Entitic vol] 91 fL 80 - 100 fL [facility] Nucleated RBC/100 WBC (Bld) [Ratio] 0 % [facility] Platelets (Bld) [#/Vol] 755 10*3/uL High [facility] RBC (Bld) [#/Vol] 3.76 10*6/uL Low [facility] WBC (Bld) [#/Vol] 30.1 10*3/uL High [facility] Comprehensive metabolic 2000 panelon 10-13-2024 Albumin BCP dye [Mass/Vol] 3.9 g/dL 3.4 - 5.0 g/dL [facility] ALP [Catalytic activity/Vol] 76 U/L 33 - 120 U/L [facility] ALT With P-5'-P [Catalytic activity/Vol] 9 U/L Low 10 - 52 U/L [facility] Anion gap [Moles/Vol] 18 mmol/L 10 - 2 0 mmol/L [facility] AST With P-5'-P [Catalytic activity/Vol] 10 U/L 9 - 39 U/L [facility] Bilirubin [Mass/Vol] 0.4 mg/dL 0.0 - 1 .2 mg/dL [facility] Calcium [Mass/Vol] 10.4 mg/dL 8.6 - 10. 6 mg/dL [facility] Chloride [Moles/Vol] 100 mmol/L 98 - 10 7 mmol/L [facility] CO2 [Moles/Vol] 26 mmol/L 21 - 32 mmol/L [facility] Creatinine [Mass/Vol] 1.84 mg/dL High 0.50 - 1.30 mg/dL [facility] GFR/1.73 sq M.predicted among non-blacks MDRD (S/P/Bld) [Vol rate/Area] 44 mL/min/{1.73_m2} Low - PINF [facility] Glucose [Mass/Vol] 144 mg/dL High 74 - 99 mg/dL [facility] Interpretation and review of laboratory results Abnormal [facility] Potassium [Moles/Vol] 4.5 mmol/L 3.5 - 5.3 mmol/L [facility] Protein [Mass/Vol] 7.5 g/dL 6.4 - 8.2 g/dL [facility] Sodium [Moles/Vol] 139 mmol/L 136 - 145 mmol/L [facility] Urea nitrogen [Mass/Vol] 19 mg/dL 6 - 23 mg/d L [facility] ECG 12-LEADon 10-13-2024 ECG 12-LEAD Ventricular Rate 126 Atrial Rate 126 P-R Interval 144 QRS Duration 94 Q-T Interval 324 QTC Calculation(Bazett) 469 P [place] 72 R [place] 49 T [place] 101 QRS Count 21 Q Onset 225 P Onset 153 P Offset 218 T Offset 387 QTC [place] [address] & T wave abnormality, consider lateral ischemia Abnormal ECG Confirmed by Campos Villa ([id number]) on 10/16/2024 6:09:33 PM Normal [facility] Gas and Carbon monoxide and Electrolytes panel (BldA)on 10-13-2024 Anion gap 4 (BldA) [Moles/Vol] 11 [facility] Base excess Calc (Bld) [Moles/Vol] -1 mmol/L -2.0 - 3.0 mmol/L [facility] Calcium.ionized (BldA) [Moles/Vol] 1.3 mmol/L 1.10 - 1.33 mmol/L [facility] Chloride (BldA) [Moles/Vol] 104 mmol/L 98 - 107 mmol/L [facility] CO2 (Bld) [Partial pressure] 42 mm[Hg] [facility] Glucose [Mass/Vol] 152 mg/dL High 74 - 99 mg/dL [facility] HCO3 (Bld) [Moles/Vol] 24.3 mmol/L 22.0 - 26.0 mmol/L [facility] Hematocrit Est (Bld) [Volume fraction] 29 % Low 41.0 - 52.0 % [facility] Hemoglobin (Bld) [Mass/Vol] 9.5 g/dL Low 13.5 - 17.5 g/dL [facility] Inhaled oxygen concentration 28 % [facility] Interpretation and review of laboratory results Abnormal [facility] Lactate (BldA) [Moles/Vol] 0.9 mmol/L 0.4 - 2.0 mmol/L [facility] Oxygen (Bld) [Partial pressure] 73 mm[Hg] Low [facility] Oxyhemoglobin (BldA) [Mass fraction] 94.4 % 94.0 - 98.0 % [facility] pH (Bld) 7.37 [pH] Low 7.38 - 7.42 pH [facility] Potassium (BldA) [Moles/Vol] 4.1 mmol/L 3.5 - 5.3 mmol/L [facility] Sodium (BldA) [Moles/Vol] 135 mmol/L Low 136 - 145 mmol/L [facility] Gas panel (BldV)on 5 Anion gap 4 (BldV) [Moles/Vol] 10 mmol/L 10.0 - 25.0 mmol/L [facility] Base excess Calc (BldV) [Moles/Vol] -0.4000 mmol/L -2.0 - 3.0 mmol/L [facility] Calcium.ionized (BldV) [Moles/Vol] 1.31 mmol/L 1.10 - 1.33 mmol/L [facility] Chloride (BldV) [Moles/Vol] 104 mmol/L 98 - 107 mmol/L [facility] CO2 (BldV) [Partial pressure] 51 mm[Hg] [facility] Glucose [Mass/Vol] 154 mg/dL High 74 - 99 mg/[facility] [Moles/Vol] 26.3 mmol/L High 22.0 - 26.0 mmol/L [facility] Hematocrit Est (Bld) [Volume fraction] 36 % Low 41.0 - 52.0 % [facility] Hemoglobin (Bld) [Mass/Vol] 12 g/dL Low 13.5 - 17.5 g/dL [facility] Inhaled oxygen concentration 28 % [facility] Interpretation and review of laboratory results Abnormal [facility] Lactate (BldV) [Moles/Vol] 2.2 mmol/L High 0.4 - 2.0 mmol/L [facility] Oxygen (BldV) [Partial pressure] 36 mm[Hg] [facility] Oxygen saturation in Venous blood 53 % 45 - 75 % [facility] Oxyhemoglobin (BldV) [Mass fraction] 52.4 % 45.0 - 75.0 % [facility] pH (BldV) 7.32 [pH] Low 7.33 - 7.43 pH [facility] Potassium (BldV) [Moles/Vol] 4.3 mmol/L 3.5 - 5.3 mmol/L [facility] Sodium (BldV) [Moles/Vol] 136 mmol/L 136 - 145 mmol/L [facility] Lactateon 10-13-2024 Lactate [Moles/Vol] 2.6 mmol/L High 0.4 - 2. 0 mmol/L [facility] Lactate [Moles/Vol] 1.8 mmol/L 0.4 - 2. 0 mmol/L [facility] Lactate [Moles/Vol]on 2024 Interpretation and review of laboratory results Abnormal [facility] Interpretation and review of laboratory results Normal [facility] Manual differential performe d Ql (Bld)on 10-13-2024 Band form neutrophils (Bld) [#/Vol] 4.67 10*3/uL High [facility] Band form neutrophils/100 WBC (Bld) 15.5 % 0.0 - 5.0 % [facility] Basophils (Bld) [#/Vol] 0 [facility] Bas[facility] WBC (Bld) 0 % 0.0 - 2.0 % [facility] Cells Counted Total (Bld) [#] 116 {cells} [facility] Eosinophils (Bld) [#/Vol] 0 10*3/uL [facility] Eosinophils/100 WBC (Bld) 0 % 0.0 - 6.0 % [facility] Lymphocytes (Bld) [#/Vol] 1.02 10*3/uL Low [facility] Lymphocytes/100 WBC (Bld) 3.4 % 13.0 - 44.0 % [facility] Monocytes (Bld) [#/Vol] 0.78 10*3/uL [facility] Monocytes/100 WBC (Bld) 2.6 % 2.0 - 10.0 % [facility] Myelocytes (Bld) [#/Vol] 0.27 10*3/uL [facility] Myelocytes/100 WBC (Bld) 0.9 % 0.0 - 0.0 % [facility] Neutrophils (Bld) [#/Vol] 27.25 10*3/uL [facility] Promyelocytes (Bld) [#/Vol] 0.27 10*3/uL [facility] Promyelocytes/100 WBC (Bld) 0.9 % 0.0 - 0.0 % [facility] RBC morphology finding Nom (Bld) No significant RBC morphology present [facility] Segmented neutrophils (Bld) [#/Vol] 22.58 10*3/uL [facility] Segmented neutrophils/100 WBC (Bld) 75 % 40.0 - 80.0 % [facility] Variant lymphocytes (Bld) [#/Vol] 0.51 10*3/uL [facility] Variant lymphocytes/100 WBC (Bld) 1.7 % 0.0 - 2.0 % [facility] Natriuretic peptide B [Mass/ Vol]on 10-13-2024 Interpretation and review of laboratory results Normal [facility] Natriuretic peptide B (Bld) [Mass/Vol] 6 pg/mL 0 - 99 pg/mL [facility] No Panel Informationon 10-13 Interpretation and review of laboratory results Abnormal [facility] Tissue/Wound Culture/SmearOr dered By: Alejandra Andrade on 10-13-2024 Bacteria identified Cx Nom (Unsp spec) (4+) Abundant Mixed Gram-Positive and Gram-Negative Bacteria [facility] Bacteria identified Cx Nom (Unsp spec) (4+) Abundant Mixed Anaerobic Bacteria [facility] Tropinin I.cardiac panel Hig h sensitivity methodon 10-13-2024 Interpretation and review of laboratory results Normal [facility] Troponin I, High Sensitivity on 10-13-2024 Tropinin I.cardiac panel High sensitivity method ng/L 0 - 53 ng/L [facility] Urinalysis complete W Reflex Culture panel (U)Ordered By: Vinita Arenas on 10-13-2024 Appearance (U) Clear Clear [facility] Bilirubin (U) [Mass/Vol] Negative NEGATIVE [facility] Color (U) Light-Yellow Light-Yellow, Yellow, Dark-Yellow [facility] Glucose Auto test strip (U) [Mass/Vol] Normal Normal mg/dL [facility] Interpretation and review of laboratory results Abnormal [facility] Ketones (U) [Mass/Vol] Negative NEGAT SULEMA mg/dL [facility] Leukocyte esterase Auto test strip Ql (U) Negative NEGATIVE [facility] Nitrite Auto test strip Ql (U) Negative NEGATIVE [facility] pH (U) 6.5 [pH] 5.0, 5.5, 6.0, 6.5, 7.0, 7.5, 8.0 [facility] Protein (U) [Mass/Vol] 10 (TRACE) NEGAT SULEMA, 10 (TRACE), 20 (TRACE) mg/dL [facility] RBC (U) [#/Vol] 0.03 (TRACE) Abnormal NEGATIVE [facility] Specific gravity (U) [Rel density] 1.023 1.005 - 1.035 [facility] Urobilinogen (U) [Mass/Vol] Normal Normal mg/dL [facility] Urinalysis complete W Reflex Culture panel (U)on 10-13-2024 Interpretation and review of laboratory results Normal [facility] Work Phone: RBC Auto (Urine sed) [#/Area] 3-5 NONE, 1-2, 3-5 /HPF [facility] Work Phone: WBC Auto (Urine sed) [#/Area] 1-5 1-5, NONE /HPF [facility] Work Phone: CBC W Auto Differential pane l (Bld)on 10-12-2024 Basophils (Bld) [#/Vol] 0.09 10*3/uL [facility] Basophils/100 WBC (Bld) 0.6 % 0.0 - 2.0 % [facility] Eosinophils (Bld) [#/Vol] 0.36 10*3/uL [facility] Eosinophils/100 WBC (Bld) 2.5 % 0.0 - 6.0 % [facility] Erythrocyte distribution width (RBC) [Ratio] 17.3 % High 11.5 - 14.5 % [facility] Hematocrit (Bld) [Volume fraction] 30.8 % Low 41.0 - 52.0 % [facility] Hemoglobin (Bld) [Mass/Vol] 9.5 g/dL Low 13.5 - 17.5 g/dL [facility] Immature granulocytes (Bld) [#/Vol] 0.15 10*3/uL [facility] Immature granulocytes/100 WBC (Bld) 1 % High 0.0 - 0.9 % [facility] Interpretation and review of laboratory results Abnormal [facility] Lymphocytes (Bld) [#/Vol] 2.52 10*3/uL [facility] Lymphocytes/100 WBC (Bld) 17.2 % 13.0 - 44.0 % [facility] MCH (RBC) [Entitic mass] 27.3 pg 26. 0 - 34.0 pg [facility] MCHC (RBC) [Mass/Vol] 30.8 g/dL Low 32.0 - 36.0 g/dL [facility] MCV (RBC) [Entitic vol] 89 fL 80 - 100 fL [facility] Monocytes (Bld) [#/Vol] 1.39 10*3/uL High [facility] Monocytes/100 WBC (Bld) 9.5 % 2.0 - 10.0 % [facility] Neutrophils (Bld) [#/Vol] 10.11 10*3/uL High [facility] Neutrophils/100 WBC (Bld) 69.2 % 40.0 - 80.0 % [facility] Nucleated RBC/100 WBC (Bld) [Ratio] 0 % [facility] Platelets (Bld) [#/Vol] 633 10*3/uL High [facility] RBC (Bld) [#/Vol] 3.48 10*6/uL Low [facility] WBC (Bld) [#/Vol] 14.6 10*3/uL [facility] Comprehensive metabolic 2000 panelon 10-12-2024 Albumin BCP dye [Mass/Vol] 3.5 g/dL 3.4 - 5.0 g/dL [facility] ALP [Catalytic activity/Vol] 66 U/L 33 - 120 U/L [facility] ALT With P-5'-P [Catalytic activity/Vol] 8 U/L Low 10 - 52 U/L [facility] Anion gap [Moles/Vol] 14 mmol/L 10 - 2 0 mmol/L [facility] AST With P-5'-P [Catalytic activity/Vol] 11 U/L 9 - 39 U/L [facility] Bilirubin [Mass/Vol] 0.3 mg/dL 0.0 - 1 .2 mg/dL [facility] Calcium [Mass/Vol] 10 mg/dL 8.6 - 10. 6 mg/dL [facility] Chloride [Moles/Vol] 101 mmol/L 98 - 10 7 mmol/L [facility] CO2 [Moles/Vol] 25 mmol/L 21 - 32 mmol/L [facility] Creatinine [Mass/Vol] 1.61 mg/dL High 0.50 - 1.30 mg/dL [facility] GFR/1.73 sq M.predicted among non-blacks MDRD (S/P/Bld) [Vol rate/Area] 51 mL/min/{1.73_m2} Low - PINF [facility] Glucose [Mass/Vol] 100 mg/dL High 74 - 99 mg/dL [facility] Interpretation and review of laboratory results Abnormal [facility] Potassium [Moles/Vol] 4 mmol/L 3.5 - 5.3 mmol/L [facility] Protein [Mass/Vol] 7.4 g/dL 6.4 - 8.2 g/dL [facility] Sodium [Moles/Vol] 136 mmol/L 136 - 145 mmol/L [facility] Urea nitrogen [Mass/Vol] 16 mg/dL 6 - 23 mg/d L [facility] No Panel Informationon 10-12 [facility] Vancomycinon 10-12-2024 Vancomycin [Mass/Vol] 13.6 ug/mL 5.0 - 20.0 ug/mL [facility] Vancomycin [Mass/Vol]on 09-19 Interpretation and review of laboratory results Normal [facility] Blood type and Indirect anti body screen panel (Bld)on 10-11-2024 ABO group [facility]Bld[facility] Ql Negative [facility] D Ag Ql (Bld) Positive [facility] C-reactive proteinon 025 CRP [Mass/Vol] 7.72 mg/dL High NINF - 1.00 mg/dL [facility] CBC W Auto Differential pane l (Bld)on 10-11-2024 Basophils (Bld) [#/Vol] 0.06 10*3/uL [facility] Basophils/100 WBC (Bld) 0.4 % 0.0 - 2.0 % [facility] Eosinophils (Bld) [#/Vol] 0.39 10*3/uL [facility] Eosinophils/100 WBC (Bld) 2.7 % 0.0 - 6.0 % [facility] Erythrocyte distribution width (RBC) [Ratio] 17.2 % High 11.5 - 14.5 % [facility] Hematocrit (Bld) [Volume fraction] 28.7 % Low 41.0 - 52.0 % [facility] Hemoglobin (Bld) [Mass/Vol] 9.6 g/dL Low 13.5 - 17.5 g/dL [facility] Immature granulocytes (Bld) [#/Vol] 0.17 10*3/uL [facility] Immature granulocytes/100 WBC (Bld) 1.2 % High 0.0 - 0.9 % [facility] Interpretation and review of laboratory results Abnormal [facility] Lymphocytes (Bld) [#/Vol] 3.37 10*3/uL [facility] Lymphocytes/100 WBC (Bld) 23.6 % 13.0 - 44.0 % [facility] MCH (RBC) [Entitic mass] 28.2 pg 26. 0 - 34.0 pg [facility] MCHC (RBC) [Mass/Vol] 33.4 g/dL 32.0 - 36.0 g/dL [facility] MCV (RBC) [Entitic vol] 84 fL 80 - 100 fL [facility] Monocytes (Bld) [#/Vol] 1.62 10*3/uL High [facility] Monocytes/100 WBC (Bld) 11.3 % 2.0 - 10.0 % [facility] Neutrophils (Bld) [#/Vol] 8.67 10*3/uL High [facility] Neutrophils/100 WBC (Bld) 60.8 % 40.0 - 80.0 % [facility] Nucleated RBC/100 WBC (Bld) [Ratio] 0 % [facility] Platelets (Bld) [#/Vol] 650 10*3/uL High [facility] RBC (Bld) [#/Vol] 3.4 10*6/uL Low [facility] WBC (Bld) [#/Vol] 14.3 10*3/uL High [facility] CRP [Mass/Vol]on 10-11-2024 Interpretation and review of laboratory results Abnormal [facility] ESR Westergren method (Bld) [Velocity]on 10-11-2024 ESR (Bld) [Velocity] mm/h High 0 - 20 mm/h [facility] Interpretation and review of laboratory results Abnormal [facility] Extra Urine Rhodes Tubeon 09-19 Extra Tube Hold for add-ons. [facility] Ferritinon 10-11-2024 Ferritin [Mass/Vol] 259 ng/mL 20 - 300 ng/mL [facility] Ferritin [Mass/Vol]on 2024 Interpretation and review of laboratory results Normal [facility] Iron and Iron binding capaci ty panelon 10-11-2024 Interpretation and review of laboratory results Abnormal [facility] Iron [Mass/Vol] 24 ug/dL Low 35 - 150 ug/dL [facility] Iron binding capacity [Mass/Vol] 218 ug/dL Low 240 - 445 ug/dL [facility] Iron binding capacity.unsaturated [Mass/Vol] 194 ug/dL 110 - 370 ug/dL [facility] Iron saturation [Mass fraction] 11 % Low 25 - 45 % [facility] Magnesiumon 10-11-2024 Magnesium [Mass/Vol] 2.19 mg/dL 1.60 - 2.40 mg/dL [facility] Magnesium [Mass/Vol]on 10-11 Interpretation and review of laboratory results Normal [facility] No Panel Informationon 10-11 [facility] Renal function 2000 panelon 10-11-2024 Albumin BCP dye [Mass/Vol] 3.3 g/dL Low 3.4 - 5.0 g/dL [facility] Anion gap [Moles/Vol] 12 mmol/L 10 - 2 0 mmol/L [facility] Calcium [Mass/Vol] 9.4 mg/dL 8.6 - 10. 6 mg/dL [facility] Chloride [Moles/Vol] 106 mmol/L 98 - 10 7 mmol/L [facility] CO2 [Moles/Vol] 24 mmol/L 21 - 32 mmol/L [facility] Creatinine [Mass/Vol] 1.6 mg/dL High 0.50 - 1.30 mg/dL [facility] GFR/1.73 sq M.predicted among non-blacks MDRD (S/P/Bld) [Vol rate/Area] 52 mL/min/{1.73_m2} Low - PINF [facility] Glucose [Mass/Vol] 79 mg/dL 74 - 99 mg/dL [facility] Interpretation and review of laboratory results Abnormal [facility] Phosphate [Mass/Vol] 3.8 mg/dL 2.5 - 4 .9 mg/dL [facility] Potassium [Moles/Vol] 4.1 mmol/L 3.5 - 5.3 mmol/L [facility] Sodium [Moles/Vol] 138 mmol/L 136 - 145 mmol/L [facility] Urea nitrogen [Mass/Vol] 20 mg/dL 6 - 23 mg/d L [facility] Urinalysis complete W Reflex Culture panel (U)on 10-11-2024 Appearance (U) Clear Clear [facility] Bilirubin (U) [Mass/Vol] Negative NEGATIVE [facility] Color (U) Light-Yellow Light-Yellow, Yellow, Dark-Yellow [facility] Glucose Auto test strip (U) [Mass/Vol] Normal Normal mg/dL [facility] Interpretation and review of laboratory results Abnormal [facility] Ketones (U) [Mass/Vol] Negative NEGAT SULEMA mg/dL [facility] Leukocyte esterase Auto test strip Ql (U) Negative NEGATIVE [facility] Nitrite Auto test strip Ql (U) Negative NEGATIVE [facility] pH (U) 7 [pH] 5.0, 5.5, 6.0, 6.5, 7.0, 7.5, 8.0 [facility] Protein (U) [Mass/Vol] Negative NEGAT SULEMA, 10 (TRACE), 20 (TRACE) mg/dL [facility] RBC (U) [#/Vol] Negative NEGATIVE [facility] Specific gravity (U) [Rel density] 1.037 Abnormal 1.005 - 1.035 [facility] Urobilinogen (U) [Mass/Vol] Normal Normal mg/dL [facility] Urine electrolyteson 025 Chloride (U) [Moles/Vol] 123 mmol/L [facility] Chloride/Creatinine Ratio 89 [facility] Creatinine (U) [Mass/Vol] 138.4 mg/dL 20.0 - 370.0 mg/dL [facility] Potassium (U) [Moles/Vol] 50 mmol/L [facility] Potassium/Creatinine (U) [Ratio] 36 Not established mmol/g Creat [facility] Sodium (U) [Moles/Vol] 123 mmol/[facility] Sodium/Creat[facility] (U) [Ratio] 89 Not established. mmol/g Creat [facility] Blood type and Indirect anti body screen panel (Bld)on 10-10-2024 ABO group Nom (Bld) [facility] antibody screen Ql Negative [facility] D Ag Ql (Bld) Positive [facility] CBC W Auto Differential pane l (Bld)on 10-10-2024 Basophils (Bld) [#/Vol] 0.08 10*3/uL [facility] Basophils/100 WBC (Bld) 0.5 % 0.0 - 2.0 % [facility] Eosinophils (Bld) [#/Vol] 0.25 10*3/uL [facility] Eosinophils/100 WBC (Bld) 1.4 % 0.0 - 6.0 % [facility] Erythrocyte distribution width (RBC) [Ratio] 17.4 % High 11.5 - 14.5 % [facility] Hematocrit (Bld) [Volume fraction] 31.9 % Low 41.0 - 52.0 % [facility] Hemoglobin (Bld) [Mass/Vol] 10.5 g/dL Low 13.5 - 17.5 g/dL [facility] Immature granulocytes (Bld) [#/Vol] 0.4 10*3/uL [facility] Immature granulocytes/100 WBC (Bld) 2.3 % High 0.0 - 0.9 % [facility] Interpretation and review of laboratory results Abnormal [facility] Lymphocytes (Bld) [#/Vol] 2.73 10*3/uL [facility] Lymphocytes/100 WBC (Bld) 15.6 % 13.0 - 44.0 % [facility] MCH (RBC) [Entitic mass] 27.5 pg 26. 0 - 34.0 pg [facility] MCHC (RBC) [Mass/Vol] 32.9 g/dL 32.0 - 36.0 g/dL [facility] MCV (RBC) [Entitic vol] 84 fL 80 - 100 fL [facility] Monocytes (Bld) [#/Vol] 1.6 10*3/uL High [facility] Monocytes/100 WBC (Bld) 9.1 % 2.0 - 10.0 % [facility] Neutrophils (Bld) [#/Vol] 12.45 10*3/uL High [facility] Neutrophils/100 WBC (Bld) 71.1 % 40.0 - 80.0 % [facility] Nucleated RBC/100 WBC (Bld) [Ratio] 0 % [facility] Platelets (Bld) [#/Vol] 721 10*3/uL High [facility] RBC (Bld) [#/Vol] 3.82 10*6/uL Low [facility] WBC (Bld) [#/Vol] 17.5 10*3/uL High [facility] CT Pelvis W contrast Mp UH MMODAL UH MMODAL [facility] Work Phone: Radiology Study observation (narrative) [facility] Work Phone: CT Pelvis W contrast IVOrder ed By: Beronica Valentin on 10-10-2024 [facility] Work Phone: Comprehensive metabolic 2000 panelon 10-10-2024 Albumin BCP dye [Mass/Vol] 3.8 g/dL 3.4 - 5.0 g/dL [facility] ALP [Catalytic activity/Vol] 79 U/L 33 - 120 U/L [facility] ALT With P-5'-P [Catalytic activity/Vol] 14 U/L 10 - 52 U/L [facility] Anion gap [Moles/Vol] 16 mmol/L 10 - 2 0 mmol/L [facility] AST With P-5'-P [Catalytic activity/Vol] 9 U/L 9 - 39 U/L [facility] Bilirubin [Mass/Vol] 0.2 mg/dL 0.0 - 1 .2 mg/dL [facility] Calcium [Mass/Vol] 10.4 mg/dL 8.6 - 10. 6 mg/dL [facility] Chloride [Moles/Vol] 104 mmol/L 98 - 10 7 mmol/L [facility] CO2 [Moles/Vol] 23 mmol/L 21 - 32 mmol/L [facility] Creatinine [Mass/Vol] 1.69 mg/dL High 0.50 - 1.30 mg/dL [facility] GFR/1.73 sq M.predicted among non-blacks MDRD (S/P/Bld) [Vol rate/Area] 49 mL/min/{1.73_m2} Low - PINF [facility] Glucose [Mass/Vol] 105 mg/dL High 74 - 99 mg/dL [facility] Interpretation and review of laboratory results Abnormal [facility] Potassium [Moles/Vol] 4.1 mmol/L 3.5 - 5.3 mmol/L [facility] Protein [Mass/Vol] 7.9 g/dL 6.4 - 8.2 g/dL [facility] Sodium [Moles/Vol] 139 mmol/L 136 - 145 mmol/L [facility] Urea nitrogen [Mass/Vol] 21 mg/dL 6 - 23 mg/d L [facility] Gas panel (BldV)on 5 Anion gap 4 (BldV) [Moles/Vol] 11 mmol/L 10.0 - 25.0 mmol/L [facility] Base excess Calc (BldV) [Moles/Vol] 0.9 mmol/L -2.0 - 3.0 mmol/L [facility] Calcium.ionized (BldV) [Moles/Vol] 1.31 mmol/L 1.10 - 1.33 mmol/L [facility] Chloride (BldV) [Moles/Vol] 106 mmol/L 98 - 107 mmol/L [facility] CO2 (BldV) [Partial pressure] 38 mm[Hg] Low [facility] Glucose [Mass/Vol] 109 mg/dL High 74 - 99 mg/dL [facility] HCO3 (Bld) [Moles/Vol] 25.2 mmol/L 22.0 - 26.0 mmol/L [facility] Hematocrit Est (Bld) [Volume fraction] 31 % Low 41.0 - 52.0 % [facility] Hemoglobin (Bld) [Mass/Vol] 10.2 g/dL Low 13.5 - 17.5 g/dL [facility] Inhaled oxygen concentration 21 % [facility] Interpretation and review of laboratory results Abnormal [facility] Lactate (BldV) [Moles/Vol] 1.2 mmol/L 0.4 - 2.0 mmol/L [facility] Oxygen (BldV) [Partial pressure] 43 mm[Hg] [facility] Oxygen saturation in Venous blood 78 % High 45 - 75 % [facility] Oxyhemoglobin (BldV) [Mass fraction] 74.1 % 45.0 - 75.0 % [facility] pH (BldV) 7.43 [pH] 7.33 - 7.43 pH [facility] Potassium (BldV) [Moles/Vol] 4.7 mmol/L 3.5 - 5.3 mmol/L [facility] Sodium (BldV) [Moles/Vol] 137 mmol/L 136 - 145 mmol/L [facility] PT and aPTT panel Coag (PPP) on 10-10-2024 aPTT Coag (PPP) [Time] 32 s [facility] INR Coag (PPP) [Relative time] 1.2 {INR} High 0.9 - 1.1 [facility] Interpretation and review of laboratory results Abnormal [facility] PT Coag (PPP) [Time] 13.8 s High [facility] XR Chest Single viewon 10-10 UH MMODAL UH MMODAL [facility] Work Phone: Radiology Study observation (narrative) [facility] Work Phone: XR Chest Single viewOrdered By: Perry Baires on 10-10-2024 [facility] Work Phone: CBC W Auto Differential pane l (Bld)on 09-17-2024 Basophils (Bld) [#/Vol] 0.06 10*3/uL [facility] Basophils/100 WBC (Bld) 0.5 % 0.0 - 2.0 % [facility] Eosinophils (Bld) [#/Vol] 0.41 10*3/uL [facility] Eosinophils/100 WBC (Bld) 3.3 % 0.0 - 6.0 % [facility] Erythrocyte distribution width (RBC) [Ratio] 17.2 % High 11.5 - 14.5 % [facility] Hematocrit (Bld) [Volume fraction] 27.5 % Low 41.0 - 52.0 % [facility] Hemoglobin (Bld) [Mass/Vol] 8.5 g/dL Low 13.5 - 17.5 g/dL [facility] Immature granulocytes (Bld) [#/Vol] 0.22 10*3/uL [facility] Immature granulocytes/100 WBC (Bld) 1.8 % High 0.0 - 0.9 % [facility] Comment on above: Immature Granulocyte Count (IG) includes promyelocytes, myelocytes and metamyelocytes but does not include bands. Percent differential counts (%) should be interpreted in the context of the absolute cell counts (cells/UL). Interpretation and review of laboratory results Abnormal [facility] Lymphocytes (Bld) [#/Vol] 2.5 10*3/uL [facility] Lymphocytes/100 WBC (Bld) 20.3 % 13.0 - 44.0 % [facility] MCH (RBC) [Entitic mass] 27.2 pg 26. 0 - 34.0 pg [facility] MCHC (RBC) [Mass/Vol] 30.9 g/dL Low 32.0 - 36.0 g/dL [facility] MCV (RBC) [Entitic vol] 88 fL 80 - 100 fL [facility] Monocytes (Bld) [#/Vol] 0.83 10*3/uL [facility] Monocytes/100 WBC (Bld) 6.8 % 2.0 - 10.0 % [facility] Neutrophils (Bld) [#/Vol] 8.27 10*3/uL High [facility] Comment on above: Percent differential counts (%) should be interpreted in the context of the absolute cell counts (cells/uL). Neutrophils/100 WBC (Bld) 67.3 % 40.0 - 80.0 % [facility] Nucleated RBC/100 WBC (Bld) [Ratio] 0 % [facility] Platelets (Bld) [#/Vol] 635 10*3/uL High [facility] RBC (Bld) [#/Vol] 3.13 10*6/uL Low [facility] WBC (Bld) [#/Vol] 12.3 10*3/uL High [facility] Cryptococcus sp Ag LA Ql (Un sp spec)Ordered By: Makenna Grider on 09-17-2024 Interpretation and review of laboratory results Normal [facility] Fungitell Beta-D Glucan Seru mon 09-17-2024 Fungitell Beta-D Glucan,Serum <31 NINF - 80 pg/mL [facility] Comment on above: Interpretation: The Fungitell assay does not detect certain fungal species such as the genus Cryptococcus (Karli et al. 1991) which produces very low levels of (1-3)-Wcyp-G-Lxqtce. The assay also does not detect the Zygomycetes such as Absidia, Mucor and Rhizopus (Jason et al. 1994) which are not known to produce (1-3)-Hrka-K-Nqjbst. In addition, the yeast phase of Blastomyces dermatitidis produces little (1-3)-Nqar-T-Zlxeqq and may not be detected by the [...] characteristics for these modifications were determined by [employer] If sample result is greater than 500 pg/mL, physician may order a titer of the sample. Please contact [employer] if you would like to order a retest of this sample to obtain an actual value. Samples are held for 1 week after initial testing date. Testing Performed at: [facility] [address] [place] [address] [employer] Tender: Perry Bueno, PhD ALONDRA (ABB) CLIA # [id number] FLAG Interpretation: A = Abnormal, H = High, L = Low [facility] Laboratory - Chemistry and C hemistry - challengeon 09-17-2024 Magnesium [Mass/Vol] 2.44 mg/dL High 1.60 - 2.40 mg/dL [facility] Laboratory - Microbiology an d Antimicrobial susceptibilityOrdered By: Makenna Grider on 09-17-2024 Cryptococcus sp Ag LA Ql (Unsp spec) Negative Negative, Invalid [facility] No Panel Informationon 09-17 Aspergillus Galactomanan EIA,S 0.027 NINF - 0.500 [facility] Comment on above: Interpretation: Sydni [...] Aspergillus Galactomannan EIA is a product of [employer] and is FDA approved for in vitro diagnostic use. Testing Performed at: [facility] [id number] [address] [employer] Tender: Perry Bueno, PhD ALONDRA (ABB) CLIA # [id number] FLAG Interpretation: A = Abnormal, H = High, L = Low [facility] Interpretation and review of laboratory results Abnormal [facility] Renal function 2000 panelon 09-17-2024 Albumin BCP dye [Mass/Vol] 3.1 g/dL Low 3.4 - 5.0 g/dL [facility] Anion gap [Moles/Vol] 16 mmol/L 10 - 2 0 mmol/L [facility] Calcium [Mass/Vol] 9.1 mg/dL 8.6 - 10. 6 mg/dL [facility] Chloride [Moles/Vol] 106 mmol/L 98 - 10 7 mmol/L [facility] CO2 [Moles/Vol] 23 mmol/L 21 - 32 mmol/L [facility] Creatinine [Mass/Vol] 1.89 mg/dL High 0.50 - 1.30 mg/dL [facility] GFR/1.73 sq M.predicted among non-blacks MDRD (S/P/Bld) [Vol rate/Area] 42 mL/min/{1.73_m2} Low - PINF [facility] Comment on above: Calculations of vern mated GFR are performed using the 2020 CKD-EPI Study Refit equation without the race variable for the IDMS-Traceable creatinine methods. https://jasn.asnjournals.org/content//ASN.948 7575623 Glucose [Mass/Vol] 85 mg/dL 74 - 99 mg/dL [facility] Phosphate [Mass/Vol] 4.2 mg/dL 2.5 - 4 .9 mg/dL [facility] Comment on above: The performance andres acteristics of phosphorus testing in heparinized plasma have been validated by the individual laboratory site where testing is performed. Testing on heparinized plasma is not approved by the FDA; however, such approval is not necessary. Potassium [Moles/Vol] 4.5 mmol/L 3.5 - 5.3 mmol/L [facility] Sodium [Moles/Vol] 140 mmol/L 136 - 145 mmol/L [facility] Urea nitrogen [Mass/Vol] 15 mg/dL 6 - 23 mg/d L [facility] Bacteria identified Cx Nom ( Unsp spec)on 09-16-2024 Beta lactamase organism identified Nom (Isol) Positive [facility] Work Phone: [phone] Microscopic observation Gram stain Nom (Unsp spec) No polymorphonuclear leukocytes seen [facility] Work Phone: )[phone] Microscopic observation Gram stain Nom (Unsp spec) No organisms seen [facility] Work Phone: [phone] [facility] Work Phone: )[phone] Beta lactamase organism identified Nom (Isol) Positive [facility] Work Phone: [phone] Interpretation and review of laboratory results Abnormal [facility] Work Phone: )[phone] Microscopic observation Gram stain Nom (Unsp spec) (4+) Abundant Polymorphonuclear leukocytes Abnormal [facility] Work Phone: )[phone] Microscopic observation Gram stain Nom (Unsp spec) Positive Abnormal [facility] Work Phone: [phone] [facility] Work Phone: [phone] Bacteria identified Cx Nom ( Unsp spec)Ordered By: Phil Casas on 09-16-2024 Beta lactamase organism identified Nom (Isol) Positive [facility] Interpretation and review of laboratory results Abnormal [facility] Microscopic observation Gram stain Nom (Unsp spec) (4+) Abundant Polymorphonuclear leukocytes Abnormal [facility] Microscopic observation Gram stain Nom (Unsp spec) Positive Abnormal [facility] CBC W Auto Differential pane l (Bld)on 09-16-2024 Basophils (Bld) [#/Vol] 0.05 10*3/uL [facility] Basophils/100 WBC (Bld) 0.4 % 0.0 - 2.0 % [facility] Eosinophils (Bld) [#/Vol] 0.51 10*3/uL [facility] Eosinophils/100 WBC (Bld) 4.1 % 0.0 - 6.0 % [facility] Erythrocyte distribution width (RBC) [Ratio] 17.1 % High 11.5 - 14.5 % [facility] Hematocrit (Bld) [Volume fraction] 25.8 % Low 41.0 - 52.0 % [facility] Hemoglobin (Bld) [Mass/Vol] 8.2 g/dL Low 13.5 - 17.5 g/dL [facility] Immature granulocytes (Bld) [#/Vol] 0.13 10*3/uL [facility] Immature granulocytes/100 WBC (Bld) 1.1 % High 0.0 - 0.9 % [facility] Comment on above: Immature Granulocyte Count (IG) includes promyelocytes, myelocytes and metamyelocytes but does not include bands. Percent differential counts (%) should be interpreted in the context of the absolute cell counts (cells/UL). Interpretation and review of laboratory results Abnormal [facility] Lymphocytes (Bld) [#/Vol] 2.74 10*3/uL [facility] Lymphocytes/100 WBC (Bld) 22.2 % 13.0 - 44.0 % [facility] MCH (RBC) [Entitic mass] 28.1 pg 26. 0 - 34.0 pg [facility] MCHC (RBC) [Mass/Vol] 31.8 g/dL Low 32.0 - 36.0 g/dL [facility] MCV (RBC) [Entitic vol] 88 fL 80 - 100 fL [facility] Monocytes (Bld) [#/Vol] 0.72 10*3/uL [facility] Monocytes/100 WBC (Bld) 5.8 % 2.0 - 10.0 % [facility] Neutrophils (Bld) [#/Vol] 8.18 10*3/uL High [facility] Comment on above: Percent differential counts (%) should be interpreted in the context of the absolute cell counts (cells/uL). Neutrophils/100 WBC (Bld) 66.4 % 40.0 - 80.0 % [facility] Nucleated RBC/100 WBC (Bld) [Ratio] 0 % [facility] Platelets (Bld) [#/Vol] 597 10*3/uL High [facility] RBC (Bld) [#/Vol] 2.92 10*6/uL Low [facility] WBC (Bld) [#/Vol] 12.3 10*3/uL High [facility] Laboratory - Chemistry and C hemistry - challengeon 09-16-2024 Magnesium [Mass/Vol] 2.4 mg/dL 1.60 - 2.40 mg/dL [facility] Laboratory - Drug toxicology on 09-16-2024 Vancomycin [Mass/Vol] 17.6 ug/mL 5.0 - 20.0 ug/mL [facility] Vancomycin [Mass/Vol] 18 ug/mL 5.0 - 20.0 ug/mL [facility] Laboratory - Microbiology an d Antimicrobial susceptibilityon 09-16-2024 Bacteria identified Cx Nom (Unsp spec) (1+) Rare Mixed Skin Microorganisms [facility] Work Phone: Bacteria identified Cx Nom (Unsp spec) (3+) Moderate Mixed Anaerobic Bacteria [facility] Work Phone: Bacteria identified Cx Nom (Unsp spec) (4+) Abundant Mixed Aerobic and Anaerobic Bacteria [facility] Work Phone: Laboratory - Microbiology an d Antimicrobial susceptibilityOrdered By: Phil Casas on 09-16-2024 Bacteria identified Cx Nom (Unsp spec) (2+) Few Mixed Aerobic and Anaerobic Bacteria [facility] Magnesium [Mass/Vol]on 09-16 Interpretation and review of laboratory results Normal [facility] No Panel Informationon 09-16 [facility] Renal function 2000 panelon 09-16-2024 Albumin BCP dye [Mass/Vol] 3.2 g/dL Low 3.4 - 5.0 g/dL [facility] Anion gap [Moles/Vol] 15 mmol/L 10 - 2 0 mmol/L [facility] Calcium [Mass/Vol] 9.3 mg/dL 8.6 - 10. 6 mg/dL [facility] Chloride [Moles/Vol] 104 mmol/L 98 - 10 7 mmol/L [facility] CO2 [Moles/Vol] 26 mmol/L 21 - 32 mmol/L [facility] Creatinine [Mass/Vol] 1.88 mg/dL High 0.50 - 1.30 mg/dL [facility] GFR/1.73 sq M.predicted among non-blacks MDRD (S/P/Bld) [Vol rate/Area] 43 mL/min/{1.73_m2} Low - PINF [facility] Comment on above: Calculations of vern mated GFR are performed using the 2020 CKD-EPI Study Refit equation without the race variable for the IDMS-Traceable creatinine methods. https://jasn.asnjournals.org/content//ASN.943 7896902 Glucose [Mass/Vol] 91 mg/dL 74 - 99 mg/dL [facility] Interpretation and review of laboratory results Abnormal [facility] Phosphate [Mass/Vol] 4 mg/dL 2.5 - 4 .9 mg/dL [facility] Comment on above: The performance andres acteristics of phosphorus testing in heparinized plasma have been validated by the individual laboratory site where testing is performed. Testing on heparinized plasma is not approved by the FDA; however, such approval is not necessary. Potassium [Moles/Vol] 4.6 mmol/L 3.5 - 5.3 mmol/L [facility] Sodium [Moles/Vol] 140 mmol/L 136 - 145 mmol/L [facility] Urea nitrogen [Mass/Vol] 15 mg/dL 6 - 23 mg/d L [facility] Vancomycin [Mass/Vol]on 08-20 Interpretation and review of laboratory results Normal [facility] Vancomycin levels can be monitored [...] 30.0-40.0 ug/mL Trough (all ages): 10.0-20.0 ug/mL [facility] Interpretation and review of laboratory results Normal [facility] Vancomycin levels can be monitored [...] 30.0-40.0 ug/mL Trough (all ages): 10.0-20.0 ug/mL [facility] CBC W Auto Differential pane l (Bld)on 09-15-2024 Basophils (Bld) [#/Vol] 0.05 10*3/uL [facility] Basophils/100 WBC (Bld) 0.4 % 0.0 - 2.0 % [facility] Eosinophils (Bld) [#/Vol] 0.43 10*3/uL [facility] Eosinophils/100 WBC (Bld) 3.9 % 0.0 - 6.0 % [facility] Erythrocyte distribution width (RBC) [Ratio] 16.7 % High 11.5 - 14.5 % [facility] Hematocrit (Bld) [Volume fraction] 25.2 % Low 41.0 - 52.0 % [facility] Hemoglobin (Bld) [Mass/Vol] 8.1 g/dL Low 13.5 - 17.5 g/dL [facility] Immature granulocytes (Bld) [#/Vol] 0.15 10*3/uL [facility] Immature granulocytes/100 WBC (Bld) 1.3 % High 0.0 - 0.9 % [facility] Comment on above: Immature Granulocyte Count (IG) includes promyelocytes, myelocytes and metamyelocytes but does not include bands. Percent differential counts (%) should be interpreted in the context of the absolute cell counts (cells/UL). Interpretation and review of laboratory results Abnormal [facility] Lymphocytes (Bld) [#/Vol] 2.38 10*3/uL [facility] Lymphocytes/100 WBC (Bld) 21.4 % 13.0 - 44.0 % [facility] MCH (RBC) [Entitic mass] 28.1 pg 26. 0 - 34.0 pg [facility] MCHC (RBC) [Mass/Vol] 32.1 g/dL 32.0 - 36.0 g/dL [facility] MCV (RBC) [Entitic vol] 88 fL 80 - 100 fL [facility] Monocytes (Bld) [#/Vol] 0.69 10*3/uL [facility] Monocytes/100 WBC (Bld) 6.2 % 2.0 - 10.0 % [facility] Neutrophils (Bld) [#/Vol] 7.44 10*3/uL [facility] Comment on above: Percent differential counts (%) should be interpreted in the context of the absolute cell counts (cells/uL). Neutrophils/100 WBC (Bld) 66.8 % 40.0 - 80.0 % [facility] Nucleated RBC/100 WBC (Bld) [Ratio] 0 % [facility] Platelets (Bld) [#/Vol] 526 10*3/uL High [facility] RBC (Bld) [#/Vol] 2.88 10*6/uL Low [facility] WBC (Bld) [#/Vol] 11.1 10*3/uL [facility] Laboratory - Chemistry and C hemistry - challengeon 09-15-2024 Magnesium [Mass/Vol] 2.26 mg/dL 1.60 - 2.40 mg/dL [facility] Magnesium [Mass/Vol]on 09-15 Interpretation and review of laboratory results Normal [facility] No Panel Informationon 09-15 [facility] Renal function 2000 panelon 09-15-2024 Albumin BCP dye [Mass/Vol] 3.1 g/dL Low 3.4 - 5.0 g/dL [facility] Anion gap [Moles/Vol] 15 mmol/L 10 - 2 0 mmol/L [facility] Calcium [Mass/Vol] 8.9 mg/dL 8.6 - 10. 6 mg/dL [facility] Chloride [Moles/Vol] 105 mmol/L 98 - 10 7 mmol/L [facility] CO2 [Moles/Vol] 24 mmol/L 21 - 32 mmol/L [facility] Creatinine [Mass/Vol] 1.77 mg/dL High 0.50 - 1.30 mg/dL [facility] GFR/1.73 sq M.predicted among non-blacks MDRD (S/P/Bld) [Vol rate/Area] 46 mL/min/{1.73_m2} Low - PINF [facility] Comment on above: Calculations of vern mated GFR are performed using the 2020 CKD-EPI Study Refit equation without the race variable for the IDMS-Traceable creatinine methods. https://jasn.asnjournals.org/content//ASN.550 6716313 Glucose [Mass/Vol] 122 mg/dL High 74 - 99 mg/dL [facility] Interpretation and review of laboratory results Abnormal [facility] Phosphate [Mass/Vol] 4.3 mg/dL 2.5 - 4 .9 mg/dL [facility] Comment on above: The performance andres acteristics of phosphorus testing in heparinized plasma have been validated by the individual laboratory site where testing is performed. Testing on heparinized plasma is not approved by the FDA; however, such approval is not necessary. Potassium [Moles/Vol] 4 mmol/L 3.5 - 5.3 mmol/L [facility] Sodium [Moles/Vol] 140 mmol/L 136 - 145 mmol/L [facility] Urea nitrogen [Mass/Vol] 18 mg/dL 6 - 23 mg/d L [facility] Albumin BCP dye [Mass/Vol] 3 g/dL Low 3.4 - 5.0 g/dL [facility] Anion gap [Moles/Vol] 13 mmol/L 10 - 2 0 mmol/L [facility] Calcium [Mass/Vol] 9 mg/dL 8.6 - 10. 6 mg/dL [facility] Chloride [Moles/Vol] 106 mmol/L 98 - 10 7 mmol/L [facility] CO2 [Moles/Vol] 24 mmol/L 21 - 32 mmol/L [facility] Creatinine [Mass/Vol] 1.7 mg/dL High 0.50 - 1.30 mg/dL [facility] GFR/1.73 sq M.predicted among non-blacks MDRD (S/P/Bld) [Vol rate/Area] 48 mL/min/{1.73_m2} Low - PINF [facility] Comment on above: Calculations of vern mated GFR are performed using the 2020 CKD-EPI Study Refit equation without the race variable for the IDMS-Traceable creatinine methods. https://jasn.asnjournals.org/content//ASN.799 9917834 Glucose [Mass/Vol] 116 mg/dL High 74 - 99 mg/dL [facility] Interpretation and review of laboratory results Abnormal [facility] Phosphate [Mass/Vol] 4.6 mg/dL 2.5 - 4 .9 mg/dL [facility] Comment on above: The performance andres acteristics of phosphorus testing in heparinized plasma have been validated by the individual laboratory site where testing is performed. Testing on heparinized plasma is not approved by the FDA; however, such approval is not necessary. Potassium [Moles/Vol] 4 mmol/L 3.5 - 5.3 mmol/L [facility] Sodium [Moles/Vol] 139 mmol/L 136 - 145 mmol/L [facility] Urea nitrogen [Mass/Vol] 17 mg/dL 6 - 23 mg/d L [facility] Blood type and Indirect anti body screen panel (Bld)on 09-14-2024 ABO group Nom (Bld) [facility] Blood group antibody screen Ql Negative [facility] D Ag Ql (Bld) Positive [facility] Comment on above: 2nd ABO test require d. Order and Collect VERAB [facility] CBC W Auto Differential pane l (Bld)on 09-14-2024 Basophils (Bld) [#/Vol] 0.05 10*3/uL [facility] Basophils/100 WBC (Bld) 0.4 % 0.0 - 2.0 % [facility] Eosinophils (Bld) [#/Vol] 0.47 10*3/uL [facility] Eosinophils/100 WBC (Bld) 3.6 % 0.0 - 6.0 % [facility] Erythrocyte distribution width (RBC) [Ratio] 16.8 % High 11.5 - 14.5 % [facility] Hematocrit (Bld) [Volume fraction] 24.4 % Low 41.0 - 52.0 % [facility] Hemoglobin (Bld) [Mass/Vol] 7.9 g/dL Low 13.5 - 17.5 g/dL [facility] Immature granulocytes (Bld) [#/Vol] 0.07 10*3/uL [facility] Immature granulocytes/100 WBC (Bld) 0.5 % 0.0 - 0.9 % [facility] Comment on above: Immature Granulocyte Count (IG) includes promyelocytes, myelocytes and metamyelocytes but does not include bands. Percent differential counts (%) should be interpreted in the context of the absolute cell counts (cells/UL). Interpretation and review of laboratory results Abnormal [facility] Lymphocytes (Bld) [#/Vol] 1.93 10*3/uL [facility] Lymphocytes/100 WBC (Bld) 14.8 % 13.0 - 44.0 % [facility] MCH (RBC) [Entitic mass] 28.1 pg 26. 0 - 34.0 pg [facility] MCHC (RBC) [Mass/Vol] 32.4 g/dL 32.0 - 36.0 g/dL [facility] MCV (RBC) [Entitic vol] 87 fL 80 - 100 fL [facility] Monocytes (Bld) [#/Vol] 1.3 10*3/uL High [facility] Monocytes/100 WBC (Bld) 10 % 2.0 - 10.0 % [facility] Neutrophils (Bld) [#/Vol] 9.23 10*3/uL High [facility] Comment on above: Percent differential counts (%) should be interpreted in the context of the absolute cell counts (cells/uL). Neutrophils/100 WBC (Bld) 70.7 % 40.0 - 80.0 % [facility] Nucleated RBC/100 WBC (Bld) [Ratio] 0 % [facility] Platelets (Bld) [#/Vol] 528 10*3/uL High [facility] RBC (Bld) [#/Vol] 2.81 10*6/uL Low [facility] WBC (Bld) [#/Vol] 13.1 10*3/uL [facility] W Auto Differential pane l (Bld)Ordered By: Estephania Tom on 09-14-2024 Basophils (Bld) [#/Vol] 0.04 10*3/uL [facility] Basophils/100 WBC (Bld) 0.3 % 0.0 - 2.0 % [facility] Eosinophils (Bld) [#/Vol] 0.63 10*3/uL [facility] Eosinophils/100 WBC (Bld) 4.7 % 0.0 - 6.0 % [facility] Erythrocyte distribution width (RBC) [Ratio] 16.7 % High 11.5 - 14.5 % [facility] Hematocrit (Bld) [Volume fraction] 24.7 % Low 41.0 - 52.0 % [facility] Hemoglobin (Bld) [Mass/Vol] 7.8 g/dL Low 13.5 - 17.5 g/dL [facility] Immature granulocytes (Bld) [#/Vol] 0.08 10*3/uL [facility] Immature granulocytes/100 WBC (Bld) 0.6 % 0.0 - 0.9 % [facility] Comment on above: Immature Granulocyte Count (IG) includes promyelocytes, myelocytes and metamyelocytes but does not include bands. Percent differential counts (%) should be interpreted in the context of the absolute cell counts (cells/UL). Interpretation and review of laboratory results Abnormal [facility] Lymphocytes (Bld) [#/Vol] 2.35 10*3/uL [facility] Lymphocytes/100 WBC (Bld) 17.5 % 13.0 - 44.0 % [facility] MCH (RBC) [Entitic mass] 27.6 pg 26. 0 - 34.0 pg [facility] MCHC (RBC) [Mass/Vol] 31.6 g/dL Low 32.0 - 36.0 g/dL [facility] MCV (RBC) [Entitic vol] 87 fL 80 - 100 fL [facility] Monocytes (Bld) [#/Vol] 1.18 10*3/uL High [facility] Monocytes/100 WBC (Bld) 8.8 % 2.0 - 10.0 % [facility] Neutrophils (Bld) [#/Vol] 9.13 10*3/uL [facility] Comment on above: Percent differential counts (%) should be interpreted in the context of the absolute cell counts (cells/uL). Neutrophils/100 WBC (Bld) 68.1 % 40.0 - 80.0 % [facility] Nucleated RBC/100 WBC (Bld) [Ratio] 0 % [facility] Platelets (Bld) [#/Vol] 523 10*3/uL High [facility] RBC (Bld) [#/Vol] 2.83 10*6/uL Low [facility] WBC (Bld) [#/Vol] 13.4 10*3/uL [facility] Comprehensive metabolic 2000 panelOrdered By: Nabil Bermudez on 09-14-2024 Albumin BCP dye [Mass/Vol] 3 g/dL Low 3.4 - 5.0 g/dL [facility] ALP [Catalytic activity/Vol] 55 U/L 33 - 120 U/L [facility] ALT With P-5'-P [Catalytic activity/Vol] 21 U/L 10 - 52 U/L [facility] Comment on above: Patients treated wit h Sulfasalazine may generate falsely decreased results for ALT. Anion gap [Moles/Vol] 12 mmol/L 10 - 2 0 mmol/L [facility] AST With P-5'-P [Catalytic activity/Vol] 31 U/L 9 - 39 U/L [facility] Bilirubin [Mass/Vol] 0.3 mg/dL 0.0 - 1 .2 mg/dL [facility] Calcium [Mass/Vol] 8.6 mg/dL 8.6 - 10. 6 mg/dL [facility] Chloride [Moles/Vol] 105 mmol/L 98 - 10 7 mmol/L [facility] CO2 [Moles/Vol] 24 mmol/L 21 - 32 mmol/L [facility] Creatinine [Mass/Vol] 1.64 mg/dL High 0.50 - 1.30 mg/dL [facility] GFR/1.73 sq M.predicted among non-blacks MDRD (S/P/Bld) [Vol rate/Area] 50 mL/min/{1.73_m2} Low - PINF [facility] Comment on above: Calculations of vern mated GFR are performed using the 2020 CKD-EPI Study Refit equation without the race variable for the IDMS-Traceable creatinine methods. https://jasn.asnjournals.org/content//ASN.764 9448044 Glucose [Mass/Vol] 137 mg/dL High 74 - 99 mg/dL [facility] Interpretation and review of laboratory results Abnormal [facility] Potassium [Moles/Vol] 4.3 mmol/L 3.5 - 5.3 mmol/L [facility] Protein [Mass/Vol] 6 g/dL Low 6.4 - 8.2 g/dL [facility] Sodium [Moles/Vol] 137 mmol/L 136 - 145 mmol/L [facility] Urea nitrogen [Mass/Vol] 16 mg/dL 6 - 23 mg/d L [facility] ECG 12-LEADon 09-14-2024 ECG 12-LEAD Ventricular Rate 86 Atrial Rate 86 P-R Interval 134 QRS Duration 98 Q-T Interval 360 QTC Calculation(Bazett) 430 P [place] 56 R [place] 62 T [place] 56 QRS Count 14 Q Onset 222 P Onset 155 P Offset 207 T Offset 402 QTC [place] 406 Diagnosis Normal sinus rhythm Normal ECG When compared with ECG of 29-FEB-2024 11:08, No significant change was found Confirmed by Bobby Villa ([id number]) on 09/21/2024 5:01:58 PM Normal [facility] FLUAV and FLUBV RNA MERON+prob e Nom (Unsp spec)on 09-14-2024 FLUAV RNA MERON+probe Ql (Resp) Not detected Not Detected [facility] FLUBV RNA MERON+probe Ql (Resp) Not detected Not Detected [facility] This assay is an in vitro diagnostic multiplex nucleic acid amplification test for the detection and discrimination of Influenza A & B from nasopharyngeal specimens, and has been validated for use at [facility]. Negative results do not preclude Influenza A/B infections, and should not be used as the sole basis for diagnosis, treatment, or other management decisions. If Influenza A/B and RSV PCR results are negative, testing for Parainfluenza virus, Adenovirus and Metapneumovirus is routinely performed for [facility] [place] and intensive care in[place], and is available on other patients by placing an add-on request. [facility] HbA1c (Bld) [Mass fraction]o n 09-14-2024 Average glucose Estimated from glycated hemoglobin (Bld) [Mass/Vol] 126 mg/dL Not Established [facility] Interpretation and review of laboratory results Abnormal [facility] Diagnosis of Diabetes-Adults Non-Diabetic: < or = 5.6% Increased risk for developing diabetes: 5.7-6.4% Diagnostic of diabetes: > or = 6.5% [facility] Laboratory - Chemistry and C hemistry - challengeon 09-14-2024 Magnesium [Mass/Vol] 2.14 mg/dL 1.60 - 2.40 mg/dL [facility] Magnesium [Mass/Vol] 2 mg/dL 1.60 - 2.40 mg/dL [facility] Work Phone: Phosphate [Mass/Vol] 3.8 mg/dL 2.5 - 4 .9 mg/dL [facility] Work Phone: Comment on above: The performance andres acteristics of phosphorus testing in heparinized plasma have been validated by the individual laboratory site where testing is performed. Testing on heparinized plasma is not approved by the FDA; however, such approval is not necessary. Laboratory - Drug toxicology on 09-14-2024 Vancomycin [Mass/Vol] 7.3 ug/mL 5.0 - 20.0 ug/mL [facility] Laboratory - Hematology and Cell countson 09-14-2024 HbA1c (Bld) [Mass fraction] 6 % High See comment [facility] Laboratory - Microbiology an d Antimicrobial susceptibilityon 09-14-2024 SARS-CoV-2 (COVID-19) RNA MERON+probe Ql (Resp) Not detected Not Detected [facility] Lipid 1996 panelon 4 Cholesterol [Mass/Vol] 106 mg/dL 0 - 199 mg/dL [facility] Comment on above: Age Desirable [...] dosing. Cholesterol in HDL [Mass/Vol] 16.4 mg/dL [facility] Comment on above: Age Very Low Low Normal High 0-19 Y < 35 < 40 40-45 ---- 20-24 Y ---- < 40 >45 ---- >24 Y ---- < 40 40-60 >60 Cholesterol in LDL [Mass/Vol] 63 mg/dL NINF - 99 mg/dL [facility] Comment on above: Near Borderline AGE Desirable Optimal High High Very High 0-19 Y 0 - 109 --- 110-129 >/= 130 ---- 20-24 Y 0 - 119 --- 120-159 >/= 160 ---- >24 Y 0 - 99 100-129 130-159 160-189 >/=190 Cholesterol in VLDL [Mass/Vol] 27 mg/dL 0 - 40 mg/dL [facility] Cholesterol.total/Choles terol in HDL [Mass ratio] 6.5 {ratio} [facility] Comment on above: Ref Values Desirable < 3.4 High Risk > 5.0 Non HDL Cholesterol 90 mg/dL 0 - 149 mg/dL [facility] on above: Age Desirable Borderline High High Very High 0-19 Y 0 - 119 120 - 144 >/= 145 >/= 160 20-24 Y 0 - 149 150 - 189 >/= 190 ---- >24 Y 30 mg/dL above LDL Cholesterol goal Triglyceride [Mass/Vol] 134 mg/dL 0 - 149 mg/d L [facility] Comment on above: Age Desirable [...] Interpretation and review of laboratory results Normal [facility] Natriuretic peptide B (Bld) [Mass/Vol] 68 pg/mL 0 - 99 pg/mL [facility] <100 pg/mL - Heart failure [...] contact their local laboratory for further information. [facility] No Panel Informationon 09-14 Interpretation and review of laboratory results Normal [facility] Extra Tube Hold for add-ons. [facility] Comment on above: Auto resulted. [facility] Extra Tube Hold for add-ons. [facility] Comment on above: Auto resulted. [facility] Interpretation and review of laboratory results Normal [facility] Interpretation and review of laboratory results Normal [facility] Work Phone: [facility] Work Phone: Renal function 2000 panelon 09-14-2024 Albumin BCP dye [Mass/Vol] 2.9 g/dL Low 3.4 - 5.0 g/dL [facility] Anion gap [Moles/Vol] 13 mmol/L 10 - 2 0 mmol/L [facility] Calcium [Mass/Vol] 8.9 mg/dL 8.6 - 10. 6 mg/dL [facility] Chloride [Moles/Vol] 106 mmol/L 98 - 10 7 mmol/L [facility] CO2 [Moles/Vol] 25 mmol/L 21 - 32 mmol/L [facility] Creatinine [Mass/Vol] 1.54 mg/dL High 0.50 - 1.30 mg/dL [facility] GFR/1.73 sq M.predicted among non-blacks MDRD (S/P/Bld) [Vol rate/Area] 54 mL/min/{1.73_m2} Low - PINF [facility] Comment on above: Calculations of vern mated GFR are performed using the 2020 CKD-EPI Study Refit equation without the race variable for the IDMS-Traceable creatinine methods. https://jasn.asnjournals.org/content/early/ASN.521 5260612 Glucose [Mass/Vol] 99 mg/dL 74 - 99 mg/dL [facility] Interpretation and review of laboratory results Abnormal [facility] Phosphate [Mass/Vol] 4.5 mg/dL 2.5 - 4 .9 mg/dL [facility] Comment on above: The performance andres acteristics of phosphorus testing in heparinized plasma have been validated by the individual laboratory site where testing is performed. Testing on heparinized plasma is not approved by the FDA; however, such approval is not necessary. Potassium [Moles/Vol] 4.2 mmol/L 3.5 - 5.3 mmol/L [facility] Sodium [Moles/Vol] 140 mmol/L 136 - 145 mmol/L [facility] Urea nitrogen [Mass/Vol] 14 mg/dL 6 - 23 mg/d L [facility] SARS-CoV-2 (COVID-19) RNA NA A+probe [...] and has been validated for use at [facility]. Negative results do not preclude COVID-19 infections and should not be used as the sole basis for diagnosis, treatment, or other management decisions. [facility] Vancomycin [Mass/Vol]on 08-19 Vancomycin levels [...] 30.0-40.0 ug/mL Trough (all ages): 10.0-20.0 ug/mL [facility] XR Chest Single viewon 09-14 1. Right basilar bandlike opacities felt to be atelectatic in nature. Otherwise, no definite focal consolidation or sizable pleural effusion. Signed by: Miah Alves 09/14/2024 8:38 AM Dictation workstation: [id number] Interpreted By: Miah Alves, STUDY: XR CHEST 1 VIEW; 09/13/2024 10:22 pm INDICATION: Signs/Symptoms:New fever. COMPARISON: None. ACCESSION NUMBER(S): [id number] ORDERING CLINICIAN: BALDOMERO POWELL FINDINGS: 2 AP [...] INDICATION: Signs/Symptoms:New fever. COMPARISON: None. ACCESSION NUMBER(S): [id number] ORDERING CLINICIAN: BALDOMERO POWELL FINDINGS: 2 AP [...] Miah Alves 09/14/2024 8:38 AM Dictation workstation: [id number] [facility] Work Phone: XR Chest Single viewOrdered By: Miah Alves on 09-14-2024 [facility] Work Phone: Consulton 09-13-2024 Consult [facility] Wound Care CONSULT Note Kevan La AGE: [...] to follow Recommend to follow up at [facility] after hospital discharge. Any questions or concerns please secure chat "[facility] wound/ostomy". Thank you for the consult! I [...] own independent evaluation of this patient. [facility] Consult Pharmacy Managed Vancomycin Dosing Service Consult [...] creatinine, and vancomycin levels interfaced automatically to [employer] and data has been analyzed and interpreted. [...] DATE: 09/13/24 TIME: 11:05 AM Melva Mcdonald [facility] Clinical Pharmacist Available via Secure Chat [facility] ECG 12-LEADon 09-13-2024 ECG 12-LEAD IMPRESSION: Sinus tachycardia Probable left atrial enlargement RSR' in V1 or V2, probably normal variant Electronically Signed On 09-13-2024 00:56:19 EST by Xiomara Kauffmna Normal [facility] ED Nursing Noteon 09-13-2024 ED Nursing Note Pt leaving [facility] ED at this time to go to . Belongings with EMS. Normal [facility] ED Nursing Note Report called to RN. RN informed vancomycin was stopped for transport. Normal [facility] ED Nursing Note [facility] ETA [address]pm [address] [facility] ED Nursing Note transfer line called - pt will go to [facility]- 5[address] bed A. Number for report [phone] Normal [facility] ED Nursing Note [facility] Research Nurse called back. Per the Research Physician, the patient does not have to be transferred to [facility]. All that needs to be done is a Biologic Medication" needs prescribed, and the patient can be admitted here. The patient is in an outpatient study. If any further questions, we can contact AMAN Hancock @ [phone]. Normal [facility] ED Nursing Note Patient is in a study at [facility]. He has provided a card for his physician and nurse in the study. I contacted the nurse "Karissa" and left a message @ [phone]. Patient is on the waiting list for and as of 0800 today there are still no rooms available at for this patient. Karissa called back and will contact her MD's over her and will get back with me. Normal [facility] Gas panel (BldV)Ordered By: Bárbara Carty on 09-13-2024 Anion gap 4 (BldV) [Moles/Vol] 10 mmol/L 10.0 - 25.0 mmol/L [facility] Base excess Calc (BldV) [Moles/Vol] 0.1 mmol/L -2.0 - 3.0 mmol/L [facility] Calcium.ionized (BldV) [Moles/Vol] 1.06 mmol/L Low 1.10 - 1.33 mmol/L [facility] Chloride (BldV) [Moles/Vol] 108 mmol/L High 98 - 107 mmol/L [facility] CO2 (BldV) [Partial pressure] 22 mm[Hg] Low [facility] Glucose [Mass/Vol] 149 mg/dL High 74 - 99 mg/dL [facility] (Bld) [Moles/Vol] 21.1 mmol/L Low 22.0 - 26.0 mmol/L [facility] Hematocrit Est (Bld) [Volume fraction] 26 % Low 41.0 - 52.0 % [facility] Hemoglobin (Bld) [Mass/Vol] 8.6 g/dL Low 13.5 - 17.5 g/dL [facility] Inhaled oxygen concentration 98 % [facility] Interpretation and review of laboratory results Abnormal [facility] Lactate (BldV) [Moles/Vol] 1.7 mmol/L 0.4 - 2.0 mmol/L [facility] Oxygen (BldV) [Partial pressure] 142 mm[Hg] High [facility] Oxygen saturation in Venous blood 99 % High 45 - 75 % [facility] Oxyhemoglobin (BldV) [Mass fraction] 95.8 % High 45.0 - 75.0 % [facility] pH (BldV) 7.59 [pH] High 7.33 - 7.43 pH [facility] Potassium (BldV) [Moles/Vol] 4.5 mmol/L 3.5 - 5.3 mmol/L [facility] Sodium (BldV) [Moles/Vol] 135 mmol/L Low 136 - 145 mmol/L [facility] No Panel Informationon 09-13 P [place] 54 degrees [facility] DC Interval 126 ms [facility] QRS [place] 49 degrees [facility] QRSD Interval 95 ms [facility] QT Interval 323 ms [facility] QTC Interval 423 ms [facility] T Wave [place] 53 degrees [facility] Sinus tachycardia Probable left atrial enlargement RSR' in V1 or V2, probably normal variant Electronically Signed On 09-13-2024 00:56:19 EST by Xiomara Beltre MD - 09/13/2024 IMPRESSION: Sinus tachycardia Probable left atrial enlargement RSR' in V1 or V2, probably normal variant Electronically Signed On 09-13-2024 00:56:19 EST by Xiomara Kauffman [facility] PT and aPTT panel Coag (PPP) Ordered By: Scarlet Wall on 09-13-2024 aPTT Coag (PPP) [Time] 29 s [facility] INR Coag (PPP) [Relative time] 1.2 {INR} High 0.9 - 1.1 [facility] Interpretation and review of laboratory results Abnormal [facility] PT Coag (PPP) [Time] 13.5 s High [facility] The APTT is no longer used for monitoring Unfractionated Heparin Therapy. For monitoring Heparin Therapy, use the Heparin Assay. [facility] Urinalysis complete W Reflex Culture panel (U)Ordered By: Elham Gomes on 09-13-2024 Appearance (U) Clear Clear [facility] Bilirubin (U) [Mass/Vol] Negative NEGATIVE [facility] Color (U) Light-Yellow Light-Yellow, Yellow, Dark-Yellow [facility] Glucose Auto test strip (U) [Mass/Vol] Normal Normal mg/dL [facility] Interpretation and review of laboratory results Abnormal [facility] Ketones (U) [Mass/Vol] Negative NEGAT SULEMA mg/dL [facility] Leukocyte esterase Auto test strip Ql (U) Negative NEGATIVE [facility] Nitrite Auto test strip Ql (U) Negative NEGATIVE [facility] pH (U) 7.5 [pH] 5.0, 5.5, 6.0, 6.5, 7.0, 7.5, 8.0 [facility] Protein (U) [Mass/Vol] 10 (TRACE) NEGAT SULEMA, 10 (TRACE), 20 (TRACE) mg/dL [facility] RBC (U) [#/Vol] 0.06 (1+) Abnormal NEGATIVE [facility] Specific gravity (U) [Rel density] 1.014 1.005 - 1.035 [facility] Urobilinogen (U) [Mass/Vol] Normal Normal mg/dL [facility] Urinalysis complete W Reflex Culture panel (U)on 09-13-2024 Interpretation and review of laboratory results Abnormal [facility] Mucus Auto (Urine sed) [#/Area] FEW Reference range not established. /LPF [facility] RBC Auto (Urine sed) [#/Area] 6-10 Abnormal NONE, 1-2, 3-5 /HPF [facility] WBC Auto (Urine sed) [#/Area] 1-5 1-5, NONE /HPF [facility] Vital signson 09-13-2024 Heart rate 103 /min bpm [facility] XR Chest Single viewon 09-13 Radiology Study observation (narrative) [facility] Work Phone: BASIC METABOLIC PANELon 08-19 Anion gap [Moles/Vol] 12 mmol/L Normal 3-13 [facility] Comment on above: Performed By: #### L [id number], [id number], [id number] ####[employer] Rental Agency Manager: BRIAN NUNEZ ([phone])[facility] (SBAB)[address] Calcium [Mass/Vol] 9.4 mg/dL Normal 8.4-10.2 [facility] Comment on above: Performed By: #### L [id number], [id number], [id number] ####[employer]ental [employer] Manager: BRIAN NUNEZ ([phone])[facility] (SBHLAB)[address] [place] [address] [place] Chloride [Moles/Vol] 106 mmol/L Normal 98-107 [facility] Comment on above: Performed By: #### L [id number], [id number], [id number] ####[employer] Rental [employer] Manager: BRIAN NUNEZ ([phone])[facility] (SBHLAB)[address] [place] [address] [place] CO2 [Moles/Vol] 22 mmol/L Normal 22-29 [facility] Comment on above: Performed By: #### L [id number], [id number], [id number] ####[employer] Manager: BRIAN NUNEZ ([phone])[facility] (SBHLAB)[address] [place] [address] [place] Creatinine [Mass/Vol] 1.48 mg/dL High 0.72-1.25 [facility] Comment on above: Performed By: #### L [id number], [id number], [id number] ####[employer] Rental [employer] Manager: BRIAN NUNEZ ([phone])[facility] (SBHLAB)[address] [place] [address] [place] GLOMERULAR FILTRATION RATE ML/MIN/1.73 SQ M.PREDICTED 56.9 mL/min/1.73m*2 Low >60.0 [facility] Comment on above: Result Comment: Calc ulation based on the Chronic Kidney Disease Epidemiology Collaboration (CKD-EPI) equation refit without adjustment for race Performed By: #### L [id number], [id number], [id number] ####[employer]ental [employer] Manager: BRIAN NUNEZ ([phone])[facility] (SBHLAB)[address] Glucose [Mass/Vol] 113 mg/dL High 74-100 [facility] Comment on above: Performed By: #### L [id number], [id number], [id number] ####[employer]ental [employer] Manager: BRIAN NNUEZ ([phone])[facility] (HLAB)[address] Potassium [Moles/Vol] 4.9 mmol/L Normal 3.5-5.1 [facility] Comment on above: Result Comment: [facility] potassium values may be up to 0.5 mmol/L lower than serum values. Performed By: #### L AB15, [id number], [id number] ####[employer] Rental [employer] Manager: BRIAN NUNEZ ([phone])[facility] (SBHLAB)[address] [place] [address] [place] Sodium [Moles/Vol] 140 mmol/L Normal 136-145 [facility] Comment on above: Performed By: #### L [id number], [id number], [id number] ####[employer] Rental Agency Manager: BRIAN NUNEZ ([phone])[facility] (SBHLAB)[address] [place] [address] Urea nitrogen [Mass/Vol] 18 mg/dL Normal - [facility] Comment on above: Performed By: #### L AB15, [id number], [id number] ####Car Rental Agency Manager: BRIAN NUNEZ ([phone])[facility] (SBHLAB)[address] [place] [address] BLOOD CULTUREon 09-12-2024 Bacteria identified Cx Nom (Bld) BLOOD CULTURE Reference No growth at 5 days ORDER COMMENTS: Blood Collection Site: Left Arm [ S = SUSCEPTIBLE R = RESISTANT I = INTERMEDIATE S-DD = Susceptible-dose dependent NS = Non-susceptible NO = No Interpretation ] Normal [facility] Comment on above: Performed By: #### L [id number], [id number] #### [employer] Rental Agency Manager: JAZLYN JIMENEZ ([phone]) [facility] [address] [place] [address] Bacteria identified Cx Nom (Bld) BLOOD CULTURE Reference No growth at 5 days ORDER COMMENTS: Blood Collection Site: Right Arm [ S = SUSCEPTIBLE R = RESISTANT I = INTERMEDIATE S-DD = Susceptible-dose dependent NS = Non-susceptible NO = No Interpretation ] Normal [facility] Comment on above: Performed By: #### L [id number], [id number] #### [employer]ental [employer] Manager: JAZLYN JIMENEZ ([phone]) [facility] [address] [place] [address] Basic metabolic 1998 panelon 09-12-2024 Anion gap [Moles/Vol] 12 mmol/L 3 - 13 mmol/L [facility] Calcium [Mass/Vol] 9.4 mg/dL 8.4 - 10. 2 mg/dL [facility] Chloride [Moles/Vol] 106 mmol/L 98 - 10 7 mmol/L [facility] CO2 [Moles/Vol] 22 mmol/L 22 - 29 mmol/L [facility] Creatinine [Mass/Vol] 1.48 mg/dL High 0.72 - 1.25 mg/dL [facility] GFR/1.73 sq M.predicted (S/P/Bld) [Vol rate/Area] 56.9 mL/min Low - PINF [facility] Comment on above: Calculation based on the Chronic Kidney Disease Epidemiology Collaboration (CKD-EPI) equation refit without adjustment for race Glucose [Mass/Vol] 113 mg/dL High 74 - 100 mg/dL [facility] Interpretation and review of laboratory results Abnormal [facility] Potassium [Moles/Vol] 4.9 mmol/L 3.5 - 5.1 mmol/L [facility] Comment on above: Plasma potassium jeri ues may be up to 0.5 mmol/L lower than serum values. Sodium [Moles/Vol] 140 mmol/L 136 - 145 mmol/L [facility] Urea nitrogen [Mass/Vol] 18 mg/dL 9 - 23 mg/d L [facility] [employer] [facility] CBC W Auto Differential pane l (Bld)on 09-12-2024 Basophils (Bld) [#/Vol] 0 10*3/uL 0.0 - 0.2 10*3/uL [facility] Basophils/100 WBC (Bld) 0.2 % 0.0 - 2.0 % [facility] Eosinophils (Bld) [#/Vol] 0.4 10*3/uL 0.0 - 0.5 10*3/uL [facility] Eosinophils/100 WBC (Bld) 2 % 0.0 - 6.0 % [facility] Erythrocyte distribution width (RBC) [Ratio] 17 % High 11.5 - 15.0 % [facility] Hematocrit (Bld) [Volume fraction] 28.1 % Low 40.0 - 52.0 % [facility] Hemoglobin (Bld) [Mass/Vol] 8.9 g/dL Low 13.0 - 18.0 g/dL [facility] Immature granulocytes (Bld) [#/Vol] 0.1 10*3/uL High NINF - 0.1 10*3/uL [facility] Immature granulocytes/100 WBC (Bld) 0.7 % 0.0 - 2.0 % [facility] Interpretation and review of laboratory results Abnormal [facility] Lymphocytes (Bld) [#/Vol] 2.1 10*3/uL 1.0 - 4.3 10*3/uL [facility] Lymphocytes/100 WBC (Bld) 12 % Low 15.0 - 45.0 % [facility] MCH (RBC) [Entitic mass] 27.9 pg 26. 0 - 34.0 pg [facility] MCHC (RBC) [Mass/Vol] 31.7 % 30.5 - 36.0 % [facility] MCV (RBC) [Entitic vol] 88.1 fL 77.0 - 99.0 fL [facility] Monocytes (Bld) [#/Vol] 1.5 10*3/uL High 0.0 - 0.9 10*3/uL [facility] Monocytes/100 WBC (Bld) 8.1 % 5.0 - 13.0 % [facility] Neutrophils (Bld) [#/Vol] 13.7 10*3/uL High 1.8 - 7.5 10*3/uL [facility] Neutrophils/100 WBC (Bld) 77 % 38.0 - 82.0 % [facility] Nucleated RBC/100 WBC (Bld) [Ratio] 0 % [facility] Platelet mean volume (Bld) [Entitic vol] 8.6 fL Low 9.0 - 12.7 fL [facility] Platelets (Bld) [#/Vol] 568 10*3/uL High 140 - 440 10*3/uL [facility] RBC (Bld) [#/Vol] 3.19 10*6/uL Low 4.40 - 5.9 0 10*6/uL [facility] WBC (Bld) [#/Vol] 17.8 10*3/uL High 3.6 - 10.7 10*3/uL [facility] CBC WITH AUTO DIFFERENTIALon 09-12-2024 Basophils (Bld) [#/Vol] 0.0 10*3/uL Normal 0.0-0.2 [facility] Comment on above: Performed By: #### L [id number] ####[employer] Rental Agency Manager: BRIAN NUNEZ ([phone])[facility]EL[facility] (SBHLAB)[address] Basophils/100 WBC (Bld) 0.2 % Normal 0.0-2.0 [facility] Comment on above: Performed By: #### L [id number] ####[employer] Rental [employer] Manager: BRIAN NUNEZ ([phone])[facility] [place] (SBHLAB)[address] Eosinophils (Bld) [#/Vol] 0.4 10*3/uL Normal 0.0-0.5 [facility] Comment on above: Performed By: #### L [id number] ####[employer] Rental Agency Manager: BRIAN ENRIQUE ([phone])[facility] [place] [facility] Eosinophils/100 WBC (Bld) 2.0 % Normal 0.0-6.0 [facility] Comment on above: Performed By: #### L [id number] ####[employer] Rental Agency Manager: BRIAN ENRIQUE ([phone])[facility] ([facility])[address] Erythrocyte distribution width (RBC) [Ratio] 17.0 % High 11.5-15.0 [facility] Comment on above: Performed By: #### L [id number] ####[employer] Rental [employer] Manager: BRIAN ENRIQUE ([phone])[facility] ([facility])[address] [place] [address] Hematocrit (Bld) [Volume fraction] 28.1 % Low 40.0-52.0 [facility] Comment on above: Performed By: #### L [id number] ####[employer] Rental Agency Manager: BRIAN ENRIQUE ([phone])[facility] ([facility])[address] [place] [address] Hemoglobin (Bld) [Mass/Vol] 8.9 g/dL Low 13.0-18.0 [facility] Comment on above: Performed By: #### L [id number] ####[employer] Rental Agency Manager: BRIAN ENRIQUE ([phone])[facility] ([facility])[address] IMMATURE GRANS % 0.7 % Normal 0.0-2.0 [facility] Comment on above: Performed By: #### L [id number] ####[employer] Rental Agency Manager: BRIAN GAYFANNY ([phone])[facility] ([facility])[address] IMMATURE GRANS ABSOLUTE 0.1 10*3/uL High <0.1 [facility] Comment on above: Performed By: #### L [id number] ####Car Rental Agency Manager: BRIAN NUNEZ ([phone])[facility] (SBHLAB)[address] Lymphocytes (Bld) [#/Vol] 2.1 10*3/uL Normal 1.0-4.3 [facility] Comment on above: Performed By: #### L [id number] ####[employer] Rental Agency Manager: BRIAN GAYFANNY ([phone])[facility] (SBHLAB)[address] Lymphocytes/100 WBC (Bld) 12.0 % Low 15.0-45.0 [facility] Comment on above: Performed By: #### L [id number] ####Car Rental Agency Manager: BRIAN GAYFANNY ([phone])[facility] (SBHL[facility])[address] MCH (RBC) [Entitic mass] 27.9 pg Normal 26.0-34.0 [facility] Comment on above: Performed By: #### L [id number] ####[employer] Rental Agency Manager: BRIAN GAYFANNY ([phone])[facility] [place] (SBHLAB)[address] MCHC 31.7 % Normal 30.5-36.0 [facility] Comment on above: Performed By: #### L [id number] ####Car Rental Agency Manager: BRIAN NUNEZ ([phone])[facility] [place] (SBHLAB)[address] MCV (RBC) [Entitic vol] 88.1 fL Normal 77.0-99.0 [facility] Comment on above: Performed By: #### L [id number] ####Car Rental Agency Manager: BRIAN NUNEZ ([phone])[facility] (SBHLAB)[address] Monocytes (Bld) [#/Vol] 1.5 10*3/uL High 0.0-0.9 [facility] Comment on above: Performed By: #### L [id number] ####Car Rental Agency Manager: BRIAN NUNEZ ([phone])[facility] [place] (SBHLAB)[address] Monocytes/100 WBC (Bld) 8.1 % Normal 5.0-13.0 [facility] Comment on above: Performed By: #### L [id number] ####Car Rental Agency Manager: BRIAN NUNEZ ([phone])[facility] [place] (SBHLAB)[address] NEUTROPHILS ABSOLUTE 13.7 10*3/uL High 1.8-7.5 [facility] Comment on above: Performed By: #### L [id number] ####Car Rental Agency Manager: BRIAN NUNEZ ([phone])[facility] [place] (SBHL[facility])[address] Neutrophils/100 WBC (Bld) 77.0 % Normal 38.0-82.0 [facility] Comment on above: Performed By: #### L [id number] ####Car Rental Agency Manager: BRIAN NUNEZ ([phone])[facility] [place] (SBHLAB)[address] NRBC 0.0 /100 WBCs Normal 0.0-2.0 [facility] Comment on above: Performed By: #### L [id number] ####Car Rental Agency Manager: BRIAN NUNEZ ([phone])[facility] [place] (SBHLAB)[address] Platelet mean volume (Bld) [Entitic vol] 8.6 fL Low 9.0-12.7 [facility] Comment on above: Performed By: #### L [id number] ####Car Rental Agency Manager: BRIAN NUNEZ ([phone])[facility] [place] (SBHLAB)[address] [place] [address] [place] Platelets (Bld) [#/Vol] 568 10*3/uL High 140-440 [facility] Comment on above: Performed By: #### L [id number] ####Car Rental Agency Manager: BRIAN NUNEZ ([phone])[facility] RO[facility] (SBHLAB)[address] RBC (Bld) [#/Vol] 3.19 10*6/uL Low 4.40-5.90 [facility] Comment on above: Performed By: #### L [id number] ####Car Rental Agency Manager: BRIAN NUNEZ ([phone])[facility] (SBHLAB)[address] [place] [address] WBC (Bld) [#/Vol] 17.8 10*3/uL High 3.6-10.7 [facility] Comment on above: Performed By: #### L [id number] ####Car Rental Agency Manager: BRIAN NUNEZ ([phone])[facility] ([facility])[address] [place] [address] CT ABDOMEN PELVIS W CONTRAST on 09-12-2024 CT ABDOMEN PELVIS W CONTRAST Patient Name: KEVAN LA : 1975 [facility]#: [id number] Exam Date/Time: 09/12/2024 21:13 Procedure: CT ABDOMEN [...] abscess or signs of necrotizing infection. Normal [facility] CT Abdomen and Pelvis W cont [...] Signed Date/Time: 09/12/2024 9:48 PM [facility] RAD[facility] 1975 [id number] Exam Date/Time: 09/12/2024 21:13 Procedure: CT ABDOMEN PELVIS W CONTRAST Ordering Provider: KAFUFMAN JONATHAN Reason For Exam: L gluteal draining [...] No cortical irregularity of the left femur. [facility] RADIOLOGY [facility] Raisa Eaton DO - 09/12/2024 Patient Name: [facility]AN [facility] 1975 [id number] Exam Date/Time: 09/12/2024 21:13 Procedure: CT ABDOMEN [...] Electronically Signed Date/Time: 09/12/2024 9:48 PM EST [facility] Radiology Study observation (narrative) [facility] Abdomen and Pelvis W cont rast IVOrdered By: Raisa Eaton on 09-12-2024 [facility] Work Phone: CULTURE ANAEROBICon 09-12-20 24 CULTURE ANAEROBIC ANAEROBIC CULTURE (A) Reference BACTEROIDES FRAGILIS GROUP Moderate Bacteroides fragilis group (A) [ S = SUSCEPTIBLE R = RESISTANT I = INTERMEDIATE S-DD = Susceptible-dose dependent NS = Non-susceptible NO = No Interpretation ] Normal [facility] Comment on above: Performed By: #### L [id number], [id number] #### [employer] Rental Agency Manager: JAZLYN JIMENEZ ([phone]) [facility]) [address] [place] [address] CULTURE, AEROBIC BACTERIA WI TH GRAM STAINon [...] Non-susceptible NO = No Interpretation ] Normal [facility] Comment on above: Performed By: #### L [id number], [id number] #### Car Rental Agency Manager: JAZLYN JIMENEZ ([phone]) [facility]) [address] [place] [address] ED Provider Noteon ED Provider Note [facility] ED EMERGENCY DEPARTMENT ENCOUNTER Pt Name: Kevan [...] Procedure Abnormality Status --------- ------ Culture, Aerobic Bacteri...[[id number] ] In process Anaerobic culture[[id number]] In process Please view results for these [...] 1,000 mL (0 mL IntraVENous Stopped 09/12/24 215) piperacillin-tazobac daley (Zosyn) 4,500 mg in sodium chloride 0.9 % 100 mL IVPB Mini-Bag Plus (0 mg IntraVENou (more content not included)... Normal [facility] HIGH SENSITIVITY TROPONIN, S ERIAL BASELINEon 09-12-2024 TROPONIN HIGH SENSITIVITY BASELINE 4 ng/L Normal <=35 [facility] Comment on above: Performed By: #### L [id number], [id number], [id number] ####[employer] Rental Agency Manager: BRIAN NUNEZ ([phone])[facility] ([facility])[address] [place] [address] LACTIC ACID WITH REFLEXon Lactate [Moles/Vol] 2.0 mmol/L Normal 0.5-2.2 [facility] Comment on above: Performed By: #### L [id number] ####Car Rental Agency Manager: BRIAN NUNEZ ([id number])[facility] ([facility])[address] [place] [address] Laboratory - Chemistry and C hemistry - challengeon 09-12-2024 Lactate [Moles/Vol] 2 mmol/L 0.5 - 2. 2 mmol/L [facility] NT PRO BNPon 09-12-2024 Natriuretic peptide B (Bld) [Mass/Vol] 589 pg/mL High <125 [facility] Comment on above: Performed By: #### L [id number], [id number] ####Car Rental Agency Manager: BRIAN NUNEZ ([phone])[facility] [place] [address] Natriuretic peptide B [Mass/ Vol]on 09-12-2024 Interpretation and review of laboratory results Abnormal [facility] Natriuretic peptide B (Bld) [Mass/Vol] 589 pg/mL High NINF - 125 pg/mL [facility] No Panel Informationon 09-12 Interpretation and review of laboratory results Normal [facility] Troponin HS, Serial Baseline 4 ng/L NINF - 35 ng/L [facility] Interpretation and review of laboratory results Normal [facility] Progress Noteon 09-12-2024 Progress Note Culture reviewed. Awaiting sensitivity results. Patient was seen at [facility] given IV antibiotics broad-spectrum coverage and transferred to [facility] for further management Normal [facility] XR Chest Single viewon 09-12 1. No acute findings. Report Dictated on Electronically Signed By: Elias Hutson MD Electronically Signed Date/Time: 09/12/2024 8:28 PM EST [facility] Patient Name: KEVAN LA : [...] or apparent pneumothorax. Bony thorax grossly unremarkable. [facility] Elias Hutson MD - 09/12/2024 Patient [...] Electronically Signed Date/Time: 09/12/2024 8:28 PM EST [facility] Radiology Study observation (narrative) [facility] Chest Single viewOrdered By: Elias Hutson on 09-12-2024 [employer] Work Phone: ECG 12-LEADon 02-29-2024 ECG 12-LEAD Ventricular Rate 60 Atrial Rate 60 P-R Interval 146 QRS Duration 92 Q-T Interval 410 QTC Calculation(Bazett) 410 P [place] 55 R [place] 41 T [place] 55 QRS Count 10 Q Onset 212 P Onset 139 P Offset 195 T Offset 417 QTC Fredericia 410 Diagnosis Normal sinus rhythm Normal ECG When compared with ECG of 23-NOV-2023 11:14, No significant change was found Confirmed by Eric Mccall ([id number]) on 03/01/2024 4:34:58 PM Normal [facility] ECG 12 lead (Ancillary Perfo rmed)Ordered By: Beto Casas on 11-24-2023 Atrial Rate 58 BPM [facility] Work Phone: [phone] P [place] 59 degrees [facility] Work Phone: [phone] P Offset 198 ms [facility] Work Phone: [phone] P Onset 141 ms [facility] Work Phone: [phone] DC Interval 150 ms [facility] Work Phone: [phone] Q Onset 216 [facility] Work Phone: [phone] QRS Count 10 beats [facility] Work Phone: [phone] QRS Duration 98 ms [facility] Work Phone: [phone] QT Interval 402 ms [facility] Work Phone: [phone] QTC Calculation(Bazett) 394 ms [facility] Work Phone: [phone] QTC Fredericia 397 ms [facility] Work Phone: [phone] R [place] 54 degrees [facility] Work Phone: [phone] T [place] 65 degrees [facility] Work Phone: [phone] T Offset 417 ms [facility] Work Phone: [phone] Ventricular Rate 58 BPM [facility] Work Phone: [phone] [facility] Work Phone: [phone] ECG 12 lead (Ancillary Perfo rmed)on 11-24-2023 Sinus bradycardia Otherwise normal ECG No previous ECGs available Confirmed by Beto Casas ([id number]) on 11/24/2023 1:09:15 PM Beto William MD - 11/24/2023 Sinus bradycardia Otherwise normal ECG No previous ECGs available Confirmed by Beto Casas ([id number]) on 11/24/2023 1:09:15 PM [facility] Work Phone: QUANTIFERON - PLUS RHODES TUBE on 04-10-2023 Gamma interferon background IA Qn (Bld) 0.02 [facility] QUANTIFERON - PLUS GREEN TUB Yunior 04-10-2023 TB1 Antigen Result 0.05 IU/mL [facility] QUANTIFERON - PLUS PURPLE TU BEon 04-10-2023 M. tuberculosis stim IFN-g by CD4+ CD8+ T-cells corrected for background Qn (Bld) 0.01 IU/mL [facility] M. tuberculosis stim IFN-g by CD4+ T-cells corrected for background Qn (Bld) 0.03 [IU]/mL IU/mL [facility] M. tuberculosis tuberculin stim IFN-g Ql (Bld) Negative Negative [facility] Mitogen Result IU/mL [facility] Mitogen stimulated gamma interferon corrected for background Qn (Bld) IU/mL [facility] Interferon gamma release is measured [...] NTM (M. kansasii, M. szulgai,or M. marinum). [facility] QUANTIFERON - PLUS YELLOW TU BEon 07-24-2023 TB2 Antigen Value 0.03 IU/mL [facility] Bilirubin.indirect [Mass/Vol ]on 04-08-2023 Bilirubin.conjugated [Mass/Vol] 0.0 mg/dL 0.0 - 0.3 mg/dL [facility] Interpretation and review of laboratory results Normal [facility] CBC W Auto Differential pane l (Bld)Ordered By: Smitha Mcknight on 04-08-2023 Basophils (Bld) [#/Vol] 0.1 10*3/uL 0.0 - 0.2 10*3/uL [facility] Basophils/100 WBC (Bld) 0.7 % 0.0 - 2.0 % [facility] Eosinophils (Bld) [#/Vol] 0.3 10*3/uL 0.0 - 0.5 10*3/uL [facility] Eosinophils/100 WBC (Bld) 2.6 % 1.0 - 6.0 % [facility] Erythrocyte distribution width (RBC) [Ratio] 15.0 % High 11.5 - 14.5 % [facility] Hematocrit (Bld) [Volume fraction] 38.9 % Low 40.0 - 52.0 % [facility] Hemoglobin (Bld) [Mass/Vol] 12.8 g/dL Low 13.0 - 18.0 g/dL [facility] Immature granulocytes (Bld) [#/Vol] 0.0 10*3/uL NINF - 0.0 10*3/uL [facility] Immature granulocytes/100 WBC (Bld) 0.3 % High NINF - 0.0 % [facility] Interpretation and review of laboratory results Abnormal [facility] Lymphocytes (Bld) [#/Vol] 3.0 10*3/uL 1.0 - 4.3 10*3/uL [facility] Lymphocytes/100 WBC (Bld) 23.6 % 20.0 - 40.0 % [facility] MCH (RBC) [Entitic mass] 28.7 pg 26. 0 - 34.0 pg [facility] MCHC (RBC) [Mass/Vol] 32.9 % 32.0 - 36.0 % [facility] MCV (RBC) [Entitic vol] 87.2 fL 80.0 - 98.0 fL [facility] Monocytes (Bld) [#/Vol] 1.2 10*3/uL High 0.0 - 0.8 10*3/uL [facility] Monocytes/100 WBC (Bld) 9.1 % 2.0 - 10.0 % [facility] Neutrophils (Bld) [#/Vol] 8.1 10*3/uL High 1.8 - 7.0 10*3/uL [facility] Neutrophils/100 WBC (Bld) 63.7 % 40.0 - 80.0 % [facility] Platelet mean volume (Bld) [Entitic vol] 8.7 fL 7.4 - 12.4 fL [facility] Comment on above: MPV is a calculated measurement using platelet volume ratio Platelets (Bld) [#/Vol] 415 10*3/uL 140 - 440 10*3/uL [facility] RBC (Bld) [#/Vol] 4.46 10*6/uL 4.40 - 5.9 0 10*6/uL [facility] WBC (Bld) [#/Vol] 12.7 10*3/uL High 3.6 - 10.7 10*3/uL [facility] Comprehensive metabolic 1998 panelon 04-08-2023 Albumin [Mass/Vol] 3.9 g/dL 3.5 - 5.0 g/dL [facility] ALP [Catalytic activity/Vol] 95 U/L 38 - 126 U/L [facility] ALT [Catalytic activity/Vol] 16 U/L 0 - 49 U/L [facility] Anion gap [Moles/Vol] 5 mmol/L 3 - 13 mmol/L [facility] AST [Catalytic activity/Vol] 24 U/L 15 - 46 U/L [facility] Bilirubin [Mass/Vol] 0.3 mg/dL 0.2 - 1 .3 mg/dL [facility] Calcium [Mass/Vol] 8.8 mg/dL 8.4 - 10. 4 mg/dL [facility] Chloride [Moles/Vol] 108 mmol/L High 98 - 10 7 mmol/L [facility] CO2 [Moles/Vol] 28 mmol/L 22 - 30 mmol/L [facility] Creatinine [Mass/Vol] 1.20 mg/dL 0.66 - 1.25 mg/dL [facility] GFR/1.73 sq M.predicted MDRD (S/P/Bld) [Vol rate/Area] 74.1 mL/min/{1.73_m2} - PINF [facility] Comment on above: Calculation based on the Chronic Kidney Disease Epidemiology Collaboration (CKD-EPI) equation refit without adjustment for race Glucose [Mass/Vol] 110 mg/dL High 70 - 100 mg/dL [facility] Interpretation and review of laboratory results Abnormal [facility] Potassium [Moles/Vol] 4.3 mmol/L 3.5 - 5.1 mmol/L [facility] Protein [Mass/Vol] 8.3 g/dL High 6.3 - 8.2 g/dL [facility] Sodium [Moles/Vol] 140 mmol/L 135 - 145 mmol/L [facility] Urea nitrogen [Mass/Vol] 14 mg/dL 9 - 20 mg/d L [facility] No Panel Informationon 04-08 [facility] Vital Signs Date Time Vital Sign Value Performing Clinician Facility 03-24-2025 11:14-0400 Diastolic blood pressure 60 mm[Hg] Kris Ren PA-C Work Phone: [facility] 03-24-2025 11:14-0400 Heart rate 68 /min Kris Ren PA-C Work Phone: [facility] 03-24-2025 11:14-0400 Systolic blood pressure 101 mm[Hg] Kris Ren PA-C Work Phone: [facility] 03-10-2025 14:54-0400 Body temperature 96.8 [degF] Astrid Hawley PERFORATOR-SHAREPOINT SPECIALIST Work Phone: [facility] 03-10-2025 14:54-0400 Diastolic blood pressure 51 mm[Hg] Astrid Hawley PERFORATOR-SHAREPOINT SPECIALIST Work Phone: [facility] 03-10-2025 14:54-0400 Heart rate 47 /min Astrid Hawley PERFORATOR-SHAREPOINT SPECIALIST Work Phone: [facility] 03-10-2025 14:54-0400 Respiratory rate 14 /min Astrid Hawley PERFORATOR-SHAREPOINT SPECIALIST Work Phone: [facility] 03-10-2025 14:54-0400 SaO2% (BldA) [Mass fraction] 100 % Astrid Hawley PERFORATOR-SHAREPOINT SPECIALIST Work Phone: [facility] 03-10-2025 14:54-0400 Systolic blood pressure 93 mm[Hg] Astrid Hawley PERFORATOR-SHAREPOINT SPECIALIST Work Phone: [facility] 03-03-2025 15:38-0400 Diastolic blood pressure 55 mm[Hg] Dean Jalloh MD Work Phone: [facility] 03-03-2025 15:38-0400 Heart rate 55 /min Dean Jalloh MD Work Phone: [facility] 03-03-2025 15:38-0400 Respiratory rate 16 /min Dean Jalloh MD Work Phone: [facility] 03-03-2025 15:38-0400 SaO2% (BldA) [Mass fraction] 98 % Dean Jalloh MD Work Phone: [facility] 03-03-2025 15:38-0400 Systolic blood pressure 98 mm[Hg] Dean Jalloh MD Work Phone: [facility] 12-24-2024 09:31-0400 Body temperature 98.01 [degF] Mejgon Martina DO Work Phone: [facility] 12-24-2024 09:31-0400 Diastolic blood pressure 45 mm[Hg] Mejgon Martina DO Work Phone: [facility] 12-24-2024 09:31-0400 Heart rate 83 /min Mejgon Martina DO Work Phone: [facility] 12-24-2024 09:31-0400 Respiratory rate 15 /min Mejgon Martina DO Work Phone: [facility] 12-24-2024 09:31-0400 SaO2% (BldA) [Mass fraction] 97 % Mejgon Martina DO Work Phone: [facility] 12-24-2024 09:31-0400 Systolic blood pressure 95 mm[Hg] Levi Mack DO Work Phone: [facility] 12-23-2024 19:23-0400 Body height 200.7 cm Levi Mack DO Work Phone: [facility] 12-23-2024 19:23-0400 Body mass index (BMI) [Ratio] 22.34 kg/m2 Levi Mack DO Work Phone: [facility] 12-23-2024 19:23-0400 Body weight 90 kg Levi Mack DO Work Phone: [facility] 12-20-2024 10:55-0400 Body height 196.7 cm Sreedhar Jiang MD Work Phone: [facility] 12-20-2024 10:55-0400 Body mass index (BMI) [Ratio] 23.31 kg/m2 Sreedhar Jiang MD Work Phone: [facility] 12-20-2024 10:55-0400 Body temperature 97.9 [degF] Sreedhar Jiang MD Work Phone: [facility] 12-20-2024 10:55-0400 Body weight 90.2 kg Sreedhar Jiang MD Work Phone: [facility] 12-20-2024 10:55-0400 Diastolic blood pressure 57 mm[Hg] rSeedhar Jiang MD Work Phone: [facility] 12-20-2024 10:55-0400 Heart rate 74 /min Sreedhar Jiang MD Work Phone: [facility] 12-20-2024 10:55-0400 Respiratory rate 16 /min Sreedhar Jiang MD Work Phone: [facility] 12-20-2024 10:55-0400 SaO2% (BldA) [Mass fraction] 96 % Sreedhar Jiang MD Work Phone: [facility] 12-20-2024 10:55-0400 Systolic blood pressure 99 mm[Hg] Sreedhar Jiang MD Work Phone: [facility] 12-19-2024 07:29-0400 Body temperature 97 [degF] Mine Nunez MD Work Phone: [facility] 12-19-2024 07:29-0400 Diastolic blood pressure 62 mm[Hg] Mine Nunez MD Work Phone: [facility] 12-19-2024 07:29-0400 Heart rate 83 /min Mine Nunez MD Work Phone: [facility] 12-19-2024 07:29-0400 Respiratory rate 16 /min Mine Nunez MD Work Phone: [facility] 12-19-2024 07:29-0400 SaO2% (BldA) [Mass fraction] 96 % Mine Nunez MD Work Phone: [facility] 12-19-2024 07:29-0400 Systolic blood pressure 102 mm[Hg] Mine Nunez MD Work Phone: [facility] 12-07-2024 16:58-0400 Body height 200.6 cm Mine Nunez MD Work Phone: [facility] 12-07-2024 16:58-0400 Body mass index (BMI) [Ratio] 22.22 kg/m2 Mine Nunez MD Work Phone: [facility] 12-07-2024 16:58-0400 Body weight 89.4 kg Mine Nunez MD Work Phone: [facility] 12-07-2024 13:22-0400 Body temperature 98.71 [degF] Fer Hollins MD Work Phone: [facility] 12-07-2024 13:22-0400 Diastolic blood pressure 57 mm[Hg] Fer Hollins MD Work Phone: [facility] 12-07-2024 13:22-0400 Heart rate 60 /min Fer Hollins MD Work Phone: [facility] 12-07-2024 13:22-0400 Respiratory rate 16 /min Fer Hollins MD Work Phone: [facility] 12-07-2024 13:22-0400 SaO2% (BldA) [Mass fraction] 100 % Fer Hollins MD Work Phone: [facility] 12-07-2024 13:22-0400 Systolic blood pressure 89 mm[Hg] Fer Hollins MD Work Phone: [facility] 12-06-2024 11:09-0400 Body height 200.7 cm Fer Hollins MD Work Phone: [facility] 12-06-2024 11:09-0400 Body mass index (BMI) [Ratio] 22.19 kg/m2 Fer Hollins MD Work Phone: [facility] 12-06-2024 11:09-0400 Body weight 89.36 kg Fer Hollins MD Work Phone: [facility] 11-27-2024 13:43-0400 Body temperature 97.7 [degF] Baldomero Powell MD Work Phone: [facility] 11-27-2024 13:43-0400 Diastolic blood pressure 61 mm[Hg] Baldomero Powell MD Work Phone: [facility] 11-27-2024 13:43-0400 Heart rate 74 /min Baldomero Powell MD Work Phone: [facility] 11-27-2024 13:43-0400 SaO2% (BldA) [Mass fraction] 98 % Baldomero Powell MD Work Phone: [facility] 11-27-2024 13:43-0400 Systolic blood pressure 105 mm[Hg] Baldomero Powell MD Work Phone: [facility] 11-27-2024 05:19-0400 Respiratory rate 17 /min Baldomero Powell MD Work Phone: [facility] 11-13-2024 17:26-0500 Body temperature 37 Baldomero Powell MD Work Phone: [facility] 11-11-2024 09:42-0500 Body mass index (BMI) [Ratio] 25.93 kg/m2 Baldomero Powell MD Work Phone: [facility] 11-11-2024 09:42-0500 Body weight 104.33 kg Baldomero Powell MD Work Phone: [facility] 11-10-2024 04:05-0500 Body height 200.6 cm Baldomero Powell MD Work Phone: [facility] 11-09-2024 17:02-0500 Body temperature 98.01 [degF] Fer Kennedy MD Work Phone: [facility] 11-09-2024 17:02-0500 Diastolic blood pressure 55 mm[Hg] Fer Kennedy MD Work Phone: [facility] 11-09-2024 17:02-0500 Heart rate 63 /min Fer Kennedy MD Work Phone: [facility] 11-09-2024 17:02-0500 Respiratory rate 16 /min Fer Kennedy MD Work Phone: [facility] 11-09-2024 17:02-0500 SaO2% (BldA) [Mass fraction] 97 % Fer Kennedy MD Work Phone: [facility] 11-09-2024 17:02-0500 Systolic blood pressure 99 mm[Hg] Fer Kennedy MD Work Phone: [facility] 11-09-2024 08:12-0500 Body height 200.7 cm Fer Kennedy MD Work Phone: [facility] 11-09-2024 08:12-0500 Body mass index (BMI) [Ratio] 21.52 kg/m2 Fer Kennedy MD Work Phone: [facility] 11-09-2024 08:12-0500 Body weight 86.64 kg Fer Kennedy MD Work Phone: [facility] Comment on above: pt states last time he was weighed at [facility] this was his current weight 10-23-2024 03:44-0500 Body temperature 98.2 [degF] Kishore Gutierrez MD Work Phone: [facility] 10-23-2024 03:44-0500 Diastolic blood pressure 54 mm[Hg] Kishore Gutierrez MD Work Phone: [facility] 10-23-2024 03:44-0500 Heart rate 74 /min Kishore Gutierrez MD Work Phone: [facility] 10-23-2024 03:44-0500 Respiratory rate 17 /min Kishore Gutierrez MD Work Phone: [facility] 10-23-2024 03:44-0500 SaO2% (BldA) [Mass fraction] 98 % Kishore Gutierrez MD Work Phone: [facility] 10-23-2024 03:44-0500 Systolic blood pressure 103 mm[Hg] Kishore Gutierrez MD Work Phone: [facility] 10-13-2024 12:12-0500 Body temperature 37 Kishore Gutierrez MD Work Phone: [facility] 10-13-2024 12:08-0500 Body temperature 37 Kishore Gutierrez MD Work Phone: [facility] 10-13-2024 12:08-0500 SaO2% (BldA) [Mass fraction] 95 % Kishore Gutierrez MD Work Phone: [facility] 10-11-2024 10:15-0500 Body height 200.7 cm Kishore Gutierrez MD Work Phone: [facility] 10-11-2024 10:15-0500 Body mass index (BMI) [Ratio] 25.01 kg/m2 Kishore Gutierrez MD Work Phone: [facility] 10-11-2024 10:15-0500 Body weight 100.7 kg Kishore Gutierrez MD Work Phone: [facility] 10-10-2024 16:24-0500 Body temperature 37 Kishore Gutierrez MD Work Phone: [facility] 09-17-2024 08:06-0500 Body temperature 97 [degF] Ankit Nino MD Work Phone: [facility] 09-17-2024 08:06-0500 Diastolic blood pressure 56 mm[Hg] Ankit Nino MD Work Phone: [facility] 09-17-2024 08:06-0500 Heart rate 66 /min Ankit Nino MD Work Phone: [facility] 09-17-2024 08:06-0500 Respiratory rate 17 /min Ankit Nino MD Work Phone: [facility] 09-17-2024 08:06-0500 SaO2% (BldA) [Mass fraction] 96 % Ankit Nino MD Work Phone: [facility] 09-17-2024 08:06-0500 Systolic blood pressure 103 mm[Hg] Ankit Nino MD Work Phone: [facility] 09-13-2024 23:47-0500 Body temperature 37 Ankit Nino MD Work Phone: [facility] 09-13-2024 21:41-0500 Body height 200.7 cm Ankit Nino MD Work Phone: [facility] 09-13-2024 21:41-0500 Body mass index (BMI) [Ratio] 25.02 kg/m2 Ankit Nino MD Work Phone: [facility] 09-13-2024 21:41-0500 Body weight 100.8 kg Ankit Nino MD Work Phone: [facility] 09-13-2024 19:32-0500 Body temperature 100.6 [degF] Xiomara Kauffman MD Work Phone: [facility] 09-13-2024 19:32-0500 Diastolic blood pressure 63 mm[Hg] Xiomara Kauffman MD Work Phone: [facility] 09-13-2024 19:32-0500 Heart rate 90 /min Xiomara Kauffman MD Work Phone: [facility] 09-13-2024 19:32-0500 Respiratory rate 16 /min Xiomara Kauffman MD Work Phone: [facility] 09-13-2024 19:32-0500 SaO2% (BldA) [Mass fraction] 94 % Xiomara Kauffman MD Work Phone: [facility] 09-13-2024 19:32-0500 Systolic blood pressure 95 mm[Hg] Xiomara Kauffman MD Work Phone: [facility] 09-13-2024 11:29-0500 Body height 200.7 cm Xiomara Kauffman MD Work Phone: [facility] 09-13-2024 11:29-0500 Body mass index (BMI) [Ratio] 25.91 kg/m2 Xiomara Kauffman MD Work Phone: [facility] 09-13-2024 11:29-0500 Body weight 104.33 kg Xiomara Kauffman MD Work Phone: [facility] Encounters Encounter Date Encounter Type Care Provider Facility Start: 04[facility] [facility] Start: 04-07-2025 End: 04-07-2025 Office outpatient visit 25 minutes Astrid Hawley PERFORATOR-SHAREPOINT SPECIALIST Work Phone: [facility] Comment on above: Constipation due to pain medication therapy (Primary Dx); Other insomnia; Cancer associated pain Start: 04-07-2025 End: 04-07-2025 ambulatory ASTRID HAWLEY [facility] Start: 03-24-2025 End: 03-24-2025 ambulatory NO ASSIGNED PCP GENERIC PROVIDER [facility] Start: 03-24-2025 End: 03-24-2025 Office outpatient visit 15 minutes Kris Ren PA-C Work Phone: [facility] Comment on above: Wound of gluteal gregg ft, left, subsequent encounter (Primary Dx) Start: 03-18-2025 End: 03-18-2025 ambulatory Julio SAMANIEGO [facility] [address] Start: 03-18-2025 End: 03-18-2025 Departed Referred Julio Nolasco -[facility] [address] Start: 03-18-2025 End: 03-18-2025 ambulatory Julio SAMANIEGO Facility:[facility] Start: 03-12-2025 ambulatory Julio SAMANIEGO Facil ity:[facility] Start: 03-12-2025 Registered Referred Julio Purdy [facility] [address] Start: 03-11-2025 End: 03-11-2025 Postop follow up visit related to original px Kong Mina MD Work Phone: [facility] Comment on above: Squamous cell carcin pasha of left thigh (Primary Dx) Start: 03-11-2025 End: 03-11-2025 ambulatory KONG MINA [facility] Start: 03-10-2025 End: 03-10-2025 ambulatory ASTRID HAWLEY [facility] Start: 03-10-2025 End: 03-10-2025 Office outpatient visit 40 minutes Astrid Hawley PERFORATOR-SHAREPOINT SPECIALIST Work Phone: [facility] Comment on above: Encounter for monito ring opioid maintenance therapy (Primary Dx); Cancer associated pain; Squamous cell carcinoma of left thigh; Abscess; Other insomnia; Constipation due to pain medication therapy Start: 03-03-2025 End: 03-03-2025 ambulatory [facility]ly [facility] Start: 03-03-2025 End: 03-03-2025 Postop follow up visit related to original px Dean Jalloh MD Work Phone: [facility] Comment on above: Wound of thigh (Prim ayde Dx); Post-operative state; Encounter for change of dressing Start: 02-20-2025 ambulatory Julio SAMANIEGO Facil ity:[facility] Start: 02-20-2025 Registered Referred Julio Purdy [facility] [address] Start: 02-18-2025 ambulatory Julio SAMANIEGO Facil ity: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, including hip Start: 01-10-2025 End: 01-10-2025 ambulatory NO ASSIGNED PCP GENERIC PROVIDER [facility] Start: 01-10-2025 End: 01-10-2025 Subsequent hospital visit by physician Elizabeth [facility] Comment on above: Arrived Encounter for antine oplastic radiation therapy; 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, including hip Start: 01-09-2025 End: 01-09-2025 ambulatory NO ASSIGNED PCP GENERIC PROVID[facility] Start: 01-09-2025 End: 01-09-2025 Subsequent hospital visit by physician Blaise Quijano [facility] Comment on above: Arrived Encounter for antine oplastic radiation therapy; 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, including hip Start: 01-08-2025 End: 01-08-2025 ambulatory NO ASSIGNED PCP [facility] PROVID[facility] Start: 01-08-2025 End: 01-08-2025 Subsequent hospital visit by physician Elizabeth [facility] Comment on above: Arrived Encounter for antine oplastic radiation therapy; 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, including hip Start: 01-08-2025 End: 01-08-2025 ambulatory NO ASSIGNED PCP GENERIC PROVID[facility] Start: 01-08-2025 End: 01-08-2025 Subsequent hospital visit by physician Leslee Krueger Onc Tx Plan [facility] Comment on above: Arrived Start: 01-07-2025 End: 01-07-2025 ambulatory NO ASSIGNED PCP GENERIC PROVID[facility] Start: 01-07-2025 End: 01-07-2025 Subsequent hospital visit by physician [email or web address] [facility] Comment on above: Arrived Start: 01-06-2025 ambulatory NO ASSIGNED PC P GENERIC PROVIDER [facility] Start: 01-03-2025 End: 01-03-2025 ambulatory NO ASSIGNED PCP GENERIC PROVID[facility] Start: 01-03-2025 End: 01-03-2025 Subsequent hospital visit by physician Leslee Krueger Onc Tx Plan [facility] Comment on above: Arrived Start: 01-02-2025 End: 01-02-2025 Subsequent hospital visit by physician Leslee Bb Ct Simulator [facility] Comment on above: 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, including hip (Primary Dx) Start: 01-02-2025 End: 01-02-2025 ambulatory NO ASSIGNED PCP GENERIC PROVID[facility] Start: 01-02-2025 End: 01-02-2025 ambulatory PHIL QUIJANO [facility] Start: 01-02-2025 End: 01-02-2025 Subsequent hospital visit by physician Rad External Film EF [facility]TER[facility] Comment on above: 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, including hip Start: 12-24-2024 End: 02-17-2025 Evaluation and management of inpatient KONG MINA [facility] Start: 12-23-2024 Evaluation and manag ement of inpatient CURTIS ROSSNANDEZ [facility] Start: 12-22-2024 End: 12-24-2024 Evaluation and management of inpatient newton Walters Martina Work Phone: [facility] Oncology Medical [facility] Comment on above: Sepsis, due to unspe cified organism, unspecified whether acute organ dysfunction present (HCC) (Primary Dx); Abscess of left hip Start: 12-20-2024 End: 12-20-2024 ambulatory [facility] Start: 12-20-2024 End: 12-20-2024 ambulatory [facility] Start: 12-20-2024 End: 12-20-2024 Office outpatient visit 40 minutes Sreedhar Jiang MD Work Phone: [facility] Comment on above: Squamous cell carcin pasha of left hip (Primary Dx); Hypercalcemia of malignancy Start: 12-20-2024 End: 12-20-2024 ambulatory [facility] Start: 12-12-2024 End: 12-12-2024 Evaluation and management of inpatient [facility] Start: 12-07-2024 End: 12-19-2024 Evaluation and management of inpatient Mine Nunez MD Work Phone: [facility] 5 Start: 12-06-2024 End: 12-07-2024 Evaluation and management of inpatient Fer Hollins MD Work Phone: [facility] EMERGENCY DEPT Comment on above: Abscess of left hip (Primary Dx) Start: 12-04-2024 End: 12-04-2024 ambulatory Julio SAMANIEGO [facility] Work Phone: Start: 12-04-2024 End: 12-04-2024 Departed Referred Julio Nolasco -[facility] [address] Start: 12-04-2024 Registered Referred Julio Nolasco -[facility] [address] Start: 12-04-2024 End: 12-04-2024 ambulatory Julio SAMANIEGO Facility: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 Work Phone: Start: 10-24-2024 End: 10-24-2024 Departed Referred Julio Nolasco -[facility] - [address] Start: 10-24-2024 End: 10-24-2024 ambulatory Julio SAMANIEGO Facility:[facility] Start: 10-10-2024 End: 10-23-2024 Evaluation and management of inpatient Kishore Gutierrez MD Work Phone: [facility] [place] [facility] Start: 09-30-2024 End: 09-30-2024 ambulatory [facility] Start: 09-30-2024 End: 09-30-2024 Office outpatient visit 25 minutes Marlon Christiansen MD Work Phone: [facility] Comment on above: Clinical trial parti cipant (Primary Dx) Start: 09-30-2024 End: 09-30-2024 Patient encounter procedure Marlon Christiansen MD Work Phone: [facility] Work Phone: Start: 09-24-2024 End: 09-24-2024 Office outpatient visit 10 minutes Ankit Nino MD Work Phone: [facility] Comment on above: Counseling on health promotion and disease prevention (Primary Dx); Hidradenitis suppurativa Start: 09-13-2024 End: 09-17-2024 Evaluation and management of inpatient Ankit Nino MD Work Phone: [facility] [place] [facility] Comment on above: Wound infection (Renee francine Dx); Nausea; Constipation, unspecified constipation type; Viral infection; Smoking Start: 09-12-2024 End: 09-13-2024 Emergency department patient visit Xiomara Kauffman MD Work Phone: [facility] Comment on above: Buttock wound, left, initial encounter (Primary Dx); Sepsis, due to unspecified organism, unspecified whether acute organ dysfunction present (HCC); Hidradenitis suppurativa Start: 08-20-2024 End: 08-20-2024 ambulatory [facility] Start: 08-20-2024 End: 08-20-2024 Office outpatient visit 25 minutes Marlon Christiansen MD Work Phone: [facility] Comment on above: Clinical trial parti cipant (Primary Dx) Start: 08-20-2024 End: 08-20-2024 Patient encounter procedure Marlon Christiansen MD Work Phone: [facility] Work Phone: Start: 07-08-2024 End: 07-08-2024 ambulatory [facility] Start: 05-27-2024 End: 05-27-2024 ambulatory [facility] Ambulatory Start: 04-12-2024 End: 04-12-2024 ambulatory [facility] Start: 04-04-2024 End: 04-04-2024 ambulatory [facility] Start: 04-04-2024 End: 04-04-2024 Office outpatient visit 15 minutes Kimber Last MD Work Phone: [facility] Comment on above: Clinical trial parti cipant (Primary Dx) Start: 04-04-2024 End: 04-04-2024 Patient encounter procedure Kimber Last MD Work Phone: [facility] Work Phone: Start: 02-29-2024 End: 02-29-2024 Subsequent hospital visit by physician Leslee [id number] Cr Nonv1 Holter/Ecg Resource [facility] Comment on above: Clinical trial parti cipant Start: 02-29-2024 End: 02-29-2024 Office outpatient visit 25 minutes Kimber Last MD Work Phone: [facility] Comment on above: Clinical trial parti cipant (Primary Dx) Start: 02-29-2024 End: 02-29-2024 Patient encounter procedure Kimber Last MD Work Phone: [facility] Work Phone: Start: 02-09-2024 End: 02-09-2024 Office outpatient visit 40 minutes Kimber Last MD Work Phone: [facility] Comment on above: Clinical trial parti cipant (Primary Dx) Start: 02-09-2024 End: 02-09-2024 Patient encounter procedure Kimber Last MD Work Phone: [facility] Work Phone: Start: 01-16-2024 End: 01-16-2024 Office outpatient visit 40 minutes Kimber Last MD Work Phone: [facility] Comment on above: Clinical trial parti cipant (Primary Dx) Start: 01-16-2024 End: 01-16-2024 Patient encounter procedure Kimber Last MD Work Phone: [facility] Work Phone: Start: 12-29-2023 End: 12-29-2023 Office outpatient visit 40 minutes Kimber Last MD Work Phone: [facility] Comment on above: Clinical trial parti cipant (Primary Dx) Start: 12-29-2023 End: 12-29-2023 Patient encounter procedure Kimber Last MD Work Phone: [facility] Work Phone: Start: 12-11-2023 End: 12-11-2023 Office outpatient visit 40 minutes Kimber Last MD Work Phone: [facility] Comment on above: Clinical trial parti cipant (Primary Dx) Start: 12-11-2023 End: 12-11-2023 Patient encounter procedure Kimber Last MD Work Phone: [facility] Work Phone: Start: 11-23-2023 End: 11-23-2023 Subsequent hospital visit by physician [facility] [id number] Cr Nonv1 Holter/Ecg Resource [facility] Comment on above: Clinical trial parti cipant Start: 11-23-2023 End: 11-23-2023 Office outpatient new 60 minutes Kimber Last MD Work Phone: [facility] Comment on above: Clinical trial parti cipant (Primary Dx) Start: 11-23-2023 End: 11-23-2023 Patient encounter procedure Kimber Last MD Work Phone: [facility] Work Phone: Start: 04-08-2023 Transcribe Orders Vivian Keen MD Work Phone: [facility] Laboratory Comment on above: Hidradenitis suppura tiva (Primary Dx) Procedures Date Procedure Procedure Detail Performing Clinician Start: 03-18-2025 Gram stain microscopy Julio SAMANIEGO Start: 03-18-2025 End: 03-18-2025 Microbial culture, routine Julio SAMANIEGO Start: 03-12-2025 Procedure Julio SAMANIEGO Comment on above: Test Ordered: [id number] Drug Screen 9 w/Con f, WBETHYL ALCOHOL, ENZ Negative gm/dL MX Reference Range: Cutoff:0.020AMPHETAMINES, [place] Negative ng/mL MX Reference Range: Cutoff:50BARBITURATES, [place] Negative ug/mL MX Reference Range: Cutoff:0.1BENZODIAZEPINES, [place] Negative ng/mL MX Reference Range: Cutoff:20COCAINE/METABOLITE,[place] Negative ng/mL MX Reference Range: Cutoff:25PHENCYCLIDINE, [place] Negative ng/mL MX Reference Range: Cutoff:8THC (MARIJUANA) MTB,[place] Negative ng/mL MX Reference Range: Cutoff:5OPIATES, [place] Negative ng/mL MX Reference Range: Cutoff:5OXYCODONES, [place] Note: [A ] ng/mL MX ++POSITIVE++ Reference Range: Cutoff:5This test was developed and its performance characteristicsdetermined by [facility]. It has not been cleared or approvedby the Food and Drug Administration.Oxycodones Confirmation Positive MX Reference Range: .Oxycodone 42.0 ng/mL MX Reference Range: .Oxymorphone Negative ng/mL MX Reference Range: .Expected metabolism of oxycodone class drugs: Parent Drug Detected Metabolites Oxycodone: Oxymorphone Oxymorphone: NoneConfirmation threshold: 1.0 ng/mLPerformed at: [facility] [facility] [address] [id number] Director: Michelle Riggs [facility], Phone: [phone] at: [address] [id number] Director: Steve Rae PhD, Phone: [phone] Start: 02-20-2025 Vitamin D, 25-hydroxy measurement Julio SAMANIEGO Comment on above: Vitamin D StatusDeficiency: <20 ng/mL (5 0nmol/L)Insufficiency: 20-30 ng/mL (50-75 nmol/L)Sufficiency: 30-100 ng/mL (75-250 nmol/L)Toxicity: >100 ng/mL (>250 nmol/L) Start: 02-18-2025 Vitamin D, 25-hydroxy measurement Julio SAMANIEGO Comment on above: Vitamin D StatusDeficiency: <20 ng/mL (5 0nmol/L)Insufficiency: 20-30 ng/mL (50-75 nmol/L)Sufficiency: 30-100 ng/mL (75-250 nmol/L)Toxicity: >100 ng/mL (>250 nmol/L) Start: 01-13-2025 RAD ONC MSQ TREATMENT SUMMARY Jose Juan morocho MD Work Phone: Start: 01-10-2025 RAD ONC MSQ TREATMENT SUMMARY Jose Juan morocho MD Work Phone: Start: 01-09-2025 RAD ONC MSQ TREATMENT SUMMARY Jose Juan morocho MD Work Phone: Start: 01-08-2025 RAD ONC MSQ TREATMENT SUMMARY Jose Juan morocho MD Work Phone: Start: 01-02-[address] SIM IMAGES ONLY Phil oneil MD Work Phone: Start: 12-24-2024 Blood count complete auto&auto difrntl wbc Clarita Hay DO Work Phone: Start: 12-24-2024 Basic metabolic panel calcium total Kong Guy Dia MD Work Phone: Start: 12-22-2024 Urinalysis complete panel - Urine Ronna Leon PERFORATOR - SHAREPOINT SPECIALIST Work Phone: Start: 12-22-2024 Urnls dip stick/tablet rgnt auto w/o microscopy Ronna Leon PERFORATOR - SHAREPOINT SPECIALIST Work Phone: Start: 12-22-2024 Culture bacterial any source anaerobic iso&id Ronna Leon PERFORATOR - SHAREPOINT SPECIALIST Work Phone: Start: 12-22-2024 Radex hip unilateral with pelvis 2-3 views Ronna Leon PERFORATOR - SHAREPOINT SPECIALIST Work Phone: Start: 12-22-2024 Radiologic exam chest single view Ronna Leon PERFORATOR - SHAREPOINT SPECIALIST Work Phone: Start: 12-22-2024 Bacteria identified in Blood by Culture Ronna Leon PERFORATOR - SHAREPOINT SPECIALIST Work Phone: Start: 12-22-2024 Comprehensive metabolic panel Ronna zheng PERFORATOR - SHAREPOINT SPECIALIST Work Phone: Start: 12-22-2024 Manual Differential panel - Blood Ronna Leon PERFORATOR - SHAREPOINT SPECIALIST Work Phone: Start: 12-19-2024 Renal function panel Fer Gupta MD Work Phone: Start: 12-18-2024 Blood count complete auto&auto difrntl wbc Dara Dhillon Avelino DO Work Phone: Start: 12-17-2024 Renal function panel Fer Gupta MD Work Phone: Start: 12-16-2024 CLINICAL LEADER MODIFIED BARIUM SWALLOW EVALUATION Fer Gupta MD Work Phone: Start: 12-16-2024 Radiologic exam swallow function contrast study Fer Gupta MD Work Phone: Start: 12-16-2024 Blood count complete auto&auto difrntl wbc Dara Alejo You DO Work Phone: Start: 12-15-2024 End: 12-15-2024 Comprehensive metabolic panel Mariah Solis MD Work Phone: Start: 12-14-2024 Blood count complete auto&auto difrntl wbc Dara Alejo You DO Work Phone: Start: 12-13-2024 Renal function panel Ethan Love MD Work Phone: Start: 12-12-2024 Ecg routine ecg w/least 12 lds trcg only w/o i&r Lynette Segovia PERFORATOR-SHAREPOINT SPECIALIST Work Phone: Start: 12-12-2024 Mri lower extrem oth/thn jt w/o & w/contr matr Hank Lynne MD Work Phone: Start: 12-12-2024 PULSE OXIMETRY, CONTINUOUS Ganesh Cade MD Work Phone: Start: 12-12-2024 Assay of phosphorus inorganic Ethan Love MD Work Phone: Start: 12-11-2024 Renal function panel Ethan Love MD Work Phone: Start: 12-10-2024 Mri lower extrem oth/thn jt w/o contr matrl Ethan Love MD Work Phone: Start: 12-10-2024 Drug screen quantitative vancomycin Jazlyn Macias PharmD Work Phone: Start: 12-10-2024 Renal function panel Ethan Love MD Work Phone: Start: 12-09-2024 Blood typing serologic rh (d) Ethan Love MD Work Phone: Start: 12-09-2024 Renal function panel Ethan Love MD Work Phone: Start: 12-08-2024 Comprehensive metabolic panel Dara akhtar DO Work Phone: Start: 12-08-2024 Drug screen quantitative vancomycin Latricia Garcia MD Work Phone: Start: 12-07-2024 End: 12-07-2024 Culture bacterial blood aerobic w/id isolates Dara You DO Work Phone: Start: 12-07-2024 C-reactive protein Dara You DO Work Phone: Start: 12-07-2024 End: 12-07-2024 Comprehensive metabolic panel Dara akhtar DO Work Phone: Start: 12-07-2024 Comprehensive metabolic panel Jayro Ashby DO Work Phone: Start: 12-06-2024 Bacteria identified in Blood by Culture Latricia Schroeder DO Work Phone: Start: 12-06-2024 Ct pelvis w/contrast material Latricia Schroeder DO Work Phone: Start: 12-06-2024 Cul bact xcpt urine blood/stool aerobic isol Latricia Schroeder DO Work Phone: Start: 12-06-2024 Urinalysis complete panel - Urine Crystal Schroeder DO Work Phone: Start: 12-06-2024 Urnls dip stick/tablet rgnt auto w/o microscopy Latricia Schroeder DO Work Phone: Start: 12-06-2024 Bacteria identified in Blood by Culture Latricia Schroeder DO Work Phone: Start: 12-06-2024 C-reactive protein Latricia Schroeder DO Work Phone: Start: 12-06-2024 Comprehensive metabolic panel Latricia Schroeder DO Work Phone: Start: 12-06-2024 Ecg routine ecg w/least 12 lds trcg only w/o i&r Latricia Schroeder DO Work Phone: Start: 11-27-2024 Renal function panel Danna Soares MD Work Phone: Start: 11-26-2024 Renal function panel Isa Turner MD Work Phone: Start: 11-25-2024 Renal function panel Isa Turner MD Work Phone: Start: 11-24-2024 Renal function panel Isa Turner MD Work Phone: Start: 11-23-2024 Renal function panel Isa Turner MD Work Phone: Start: 11-22-2024 End: 11-22-2024 Culture bacterial blood aerobic w/id isolates Isa Turner MD Work Phone: Start: 11-22-2024 Renal function panel Isa Turner MD Work Phone: Start: 11-21-2024 Cul bact xcpt urine blood/stool aerobic isol Gilbert Sylvester MD Work Phone: Start: 11-21-2024 Renal function panel Isa Turner MD Work Phone: Start: 11-20-2024 End: 11-20-2024 Renal function panel Isa Turner MD Work Phone: Start: 11-20-2024 RBC shape Nom (Bld) Isa Turner MD Work Phone: Start: 11-19-2024 Ct thorax w/contrast material Isa mosqueda MD Work Phone: Start: 11-19-2024 Renal function panel Isa Turner MD Work Phone: Start: 11-18-2024 Renal function panel Isa Turner MD Work Phone: Start: 11-17-2024 Comprehensive metabolic panel Isa mosqueda MD Work Phone: Start: 11-17-2024 Hepatic function panel Khris Raya MD Work Phone: Start: 11-16-2024 Comprehensive metabolic panel Isa mosqueda MD Work Phone: Start: 11-16-2024 Hepatic function panel Khris Raya MD Work Phone: Start: 11-15-2024 Blood count complete auto&auto difrntl wbc Isa Turner MD Work Phone: Start: 11-15-2024 BIOPSY Brigitte Coy MD Work Phone: Start: 11-15-2024 Level iv surg pathology gross&microscopic exam Brigitte Coy MD Work Phone: Start: 11-15-2024 Assay of phosphorus inorganic Isa mosqueda MD Work Phone: Start: 11-14-2024 Volume measurement timed collection each Isa Turner MD Work Phone: Start: 11-14-2024 Comprehensive metabolic panel Noah Peña MD Work Phone: Start: 11-13-2024 End: 11-13-2024 Chloride bld Khris Raya MD Work Phone: Start: 11-13-2024 Blood typing serologic rh (d) Isa mosqueda MD Work Phone: Start: 11-13-2024 End: 11-13-2024 Assay of phosphorus inorganic Isa mosqueda MD Work Phone: Start: 11-13-2024 SLIDE REQUEST Khris Raya MD Work Phone: Start: 11-13-2024 Comprehensive metabolic panel Noha Peña MD Work Phone: Start: 11-13-2024 Drug screen quantitative vancomycin Claudio Plunkett MD Work Phone: Start: 11-12-2024 BIOPSY Brigitte Coy MD Work Phone: Start: 11-12-2024 Cul bact xcpt urine blood/stool aerobic isol Brigitte Coy MD Work Phone: Start: 11-12-2024 Level iv surg pathology gross&microscopic exam Brigitte Coy MD Work Phone: Start: 11-12-2024 End: 11-12-2024 Comprehensive metabolic panel Noah Peña MD Work Phone: Start: 11-11-2024 Iadna hepatitis c quant & reverse sports medicine physician Carlos Manuel Rader MD Work Phone: Start: 11-11-2024 Tb antigen response gamma interferon t-cell susp Carlos Manuel Rader MD Work Phone: Start: 11-11-2024 Comprehensive metabolic panel Noah Peña MD Work Phone: Start: 11-11-2024 Drug screen quantitative vancomycin Noah Peña MD Work Phone: Start: 11-11-2024 Iaad ia hepatitis b surface antigen Carlos Manuel Rader MD Work Phone: Start: 11-11-2024 MISCELLANEOUS LAB TEST Gilbert Sylvester MD Work Phone: Start: 11-11-2024 Assay of magnesium Isa Turner MD Work Phone: Start: 11-10-2024 Assay of lactate Isa Turner MD Work Phone: Start: 11-10-2024 PROTEIN ELECTROPHORESIS, URINE Te Tonny covington MD Work Phone: Start: 11-10-2024 End: 11-10-2024 Assay of gammaglobulin iga igd igg igm each Adelina Forte MD Work Phone: Start: 11-10-2024 Immunofixj electrophoresis serum Te Porras MD Work Phone: Start: 11-10-2024 PROTEIN ELECTROPHORESIS + IMMUNOFIXATION, SERUM Te Porras MD Work Phone: Start: 11-10-2024 C-reactive protein Noah Peña MD Work Phone: Start: 11-10-2024 End: 11-10-2024 Comprehensive metabolic panel Noah Peña MD Work Phone: Start: 11-10-2024 Culture bacterial any source anaerobic iso&id Noah Peña MD Work Phone: Start: 11-10-2024 Ecg routine ecg w/least 12 lds trcg only w/o i&r Noah Peña MD Work Phone: Start: 11-09-2024 Comprehensive metabolic panel Kaushik patten DO Work Phone: Start: 11-09-2024 Manual differential performed [Presence] in Blood Kaushik Espositou DO Work Phone: Start: 11-08-2024 Hemoglobin glycosylated a1c Kaushik Esposito u DO Work Phone: Start: 11-08-2024 Ct pelvis w/contrast material Fer Kennedy MD Work Phone: Start: 11-08-2024 Urinalysis complete panel - Urine Phylicia Fierro MD Work Phone: Start: 11-08-2024 Urnls dip stick/tablet rgnt auto w/o microscopy Juvenal Fierro MD Work Phone: Start: 11-08-2024 Bacteria identified in Blood by Culture Juvenal Fierro MD Work Phone: Start: 11-08-2024 Comprehensive metabolic panel Juvenal Fierro MD Work Phone: Start: 10-23-2024 Basic metabolic panel calcium total Delilah Almanza MD Work Phone: Start: 10-22-2024 Basic metabolic panel calcium total Delilah Almanza MD Work Phone: Start: 10-21-2024 Drug screen quantitative vancomycin Delilah Almanza MD Work Phone: Start: 10-21-2024 Dup-scan xtr veins complete bilateral study Frances Watts MD Work Phone: Start: 10-21-2024 Basic metabolic panel calcium total Delilah Almanza MD Work Phone: Start: 10-20-2024 Insertion picc w/rs&i 5 yr/> Delilah irizarry MD Work Phone: Start: 10-20-2024 Basic metabolic panel calcium total Delilah Almanza MD Work Phone: Start: 10-19-2024 Cul prsmptv pthgnc organism scrn w/colony estimj Delilah Almanza MD Work Phone: Start: 10-19-2024 Basic metabolic panel calcium total Delilah Almanza MD Work Phone: Start: 10-19-2024 Comprehensive metabolic panel Delilah xavier MD Work Phone: Start: 10-19-2024 Drug screen quantitative vancomycin Delilah Almanza MD Work Phone: Start: 10-18-2024 Comprehensive metabolic panel Marvel Felix MD Work Phone: Start: 10-17-2024 Assay of phosphorus inorganic Delilah xavier MD Work Phone: Start: 10-17-2024 Blood count complete auto&auto difrntl wbc Marvel Felix MD Work Phone: Start: 10-17-2024 Comprehensive metabolic panel Marvel Felix MD Work Phone: Start: 10-17-2024 Drug screen quantitative vancomycin Mack Grady MD Work Phone: Start: 10-16-2024 Comprehensive metabolic panel Marvel Felix MD Work Phone: Start: 10-16-2024 Blood typing serologic rh (d) Rosa treviño MD Work Phone: Start: 10-16-2024 Prothrombin time Rosa Haider MD Work Phone: Start: 10-15-2024 Comprehensive metabolic panel Marvel Felix MD Work Phone: Start: 10-14-2024 Assay of lactate Delilah Almanza MD Work Phone: Start: 10-14-2024 Comprehensive metabolic panel Marvel Felix MD Work Phone: Start: 10-14-2024 Drug screen quantitative vancomycin Marvel Felix MD Work Phone: Start: 10-13-2024 Assay of lactate Marvel Felix MD Work Phone: Start: 10-13-2024 EXTRA URINE RHODES TUBE Marvel Felix MD Work Phone: Start: 10-13-2024 Urinalysis complete W Reflex Culture panel - Urine Marvel Felix MD Work Phone: Start: 10-13-2024 Urnls dip stick/tablet reagent auto microscopy Marvel Felix MD Work Phone: Start: 10-13-2024 End: 10-13-2024 Chloride bld Marvel Felix MD Work Phone: Start: 10-13-2024 End: 10-13-2024 Culture bacterial blood aerobic w/id isolates Marvel Felix MD Work Phone: Start: 10-13-2024 Ecg routine ecg w/least 12 lds trcg only w/o i&r Marvel Felix MD Work Phone: Start: 10-13-2024 PULSE OXIMETRY, CONTINUOUS Chelle jimenez MD Work Phone: Start: 10-13-2024 Culture fngi mold/yeast prsmptv oth xcpt blood Momo Dougherty MD Work Phone: Start: 10-13-2024 End: 10-13-2024 I&d deep absc bursa/hematoma thigh/knee region Momo Dougherty MD Work Phone: Start: 10-12-2024 Comprehensive metabolic panel Marvel Felix MD Work Phone: Start: 10-12-2024 Drug screen quantitative vancomycin Makayla Olvera MD Work Phone: Start: 10-11-2024 Blood typing serologic rh (d) Carlos Manuel chan MD Work Phone: Start: 10-11-2024 Cul bact xcpt urine blood/stool aerobic isol Makayla Olvera MD Work Phone: Start: 10-11-2024 Renal function panel Makayla Olvera MD Work Phone: Start: 10-11-2024 EXTRA URINE RHODES TUBE Makayla Olvera MD Work Phone: Start: 10-11-2024 Urinalysis complete W Reflex Culture panel - Urine Makayla Olvera MD Work Phone: Start: 10-11-2024 Urnls dip stick/tablet rgnt auto w/o microscopy Makayla Olvera MD Work Phone: Start: 10-11-2024 Chloride urine Makayla Olvera MD Work Phone: Start: 10-10-2024 Culture bacterial blood aerobic w/id isolates Mack Grady MD Work Phone: Start: 10-10-2024 Ct pelvis w/contrast material Mack Grady MD Work Phone: Start: 10-10-2024 Radiologic exam chest single view Margarita Gutierrez MD Work Phone: Start: 10-10-2024 C-reactive protein Makayla Olvera MD Work Phone: Start: 10-10-2024 End: 10-10-2024 Glucose quantitative blood xcpt reagent strip Mack Grady MD Work Phone: Start: 09-17-2024 Renal function panel Carlos Lewis MD Work Phone: Start: 09-16-2024 Drug screen quantitative vancomycin Karissa Venegas PharmD Work Phone: Start: 09-16-2024 Renal function panel Carlos Lewis MD Work Phone: Start: 09-15-2024 Drug screen quantitative vancomycin Shane Galeano MD Work Phone: Start: 09-15-2024 Renal function panel Juanito Boyd MD Work Phone: Start: 09-15-2024 Renal function panel Carlos Lewis MD Work Phone: Start: 09-14-2024 Influenza virus A and B RNA [Identifier] in Unspecified specimen by MERON with probe detection Juanito Boyd MD Work Phone: Start: 09-14-2024 SARS-CoV-2 (COVID-19) RNA [Presence] in Respiratory specimen by MERON with probe detection Juanito Boyd MD Work Phone: Start: 09-14-2024 AFB PROCESSED Danna Alves MD Work Phone: Start: 09-14-2024 Culture fngi mold/yeast prsmptv oth xcpt blood Danna Alves MD Work Phone: Start: 09-14-2024 Cul bact xcpt urine blood/stool aerobic isol Shane Galeano MD Work Phone: Start: 09-14-2024 Lipid panel Carlos Lewis MD Work Phone: Start: 09-14-2024 Renal function panel Carlos Lewis MD Work Phone: Start: 09-14-2024 Lipid 1996 panel - Serum or Plasma Ankit Nino MD Work Phone: Start: 09-14-2024 Ecg routine ecg w/least 12 lds trcg only w/o i&r Carlos Lewis MD Work Phone: Start: 09-13-2024 Blood typing serologic rh (d) Carlos kirk MD Work Phone: Start: 09-13-2024 Chloride bld Carlos Lewis MD Work Phone: Start: 09-13-2024 End: 09-13-2024 Culture bacterial blood aerobic w/id isolates Carlos Lewis MD Work Phone: Start: 09-13-2024 Radiologic exam chest single view Carlos Lewis MD Work Phone: Start: 09-13-2024 EXTRA URINE RHODES TUBE Carlos Lewis MD Work Phone: Start: 09-13-2024 Urinalysis [...] MD Work Phone: Start: 09-12-2024 Basic metabolic panel calcium total Xiomara Kauffman MD Work Phone: Start: 09-12-2024 Radiologic exam chest single view Ilana Kauffman MD Work Phone: Start: 09-12-2024 Ecg routine ecg w/least 12 lds trcg only w/o i&r Xiomara Kauffman MD Work Phone: Start: 11-23-2023 Ecg routine ecg w/least 12 lds trcg only w/o i&r Kimber Last MD Work Phone: Start: 04-08-2023 Comprehensive metabolic panel Vivian colbert MD Work Phone: Start: 04-08-2023 QUANTIFERON - PLUS RHODES TUBE Vivian Keen MD Work Phone: Start: 04-08-2023 QUANTIFERON - PLUS GREEN TUBE Vivian colbert MD Work Phone: Start: 04-08-2023 QUANTIFERON - PLUS PURPLE TUBE Vivian orta MD Work Phone: Start: 04-08-2023 QUANTIFERON - PLUS YELLOW TUBE Vivian orta MD Work Phone: Start: 04-08-2023 QUANTIFERON TB GOLD Vivian Keen MD Work Phone: Plan of Treatment Date Care Activity Detail Author Start: 2048 RSV Immunization for Adults (1 - 1-dose 75+ series) RSV Immunization for Adults (1 - 1-dose 75+ series) [facility] Start: 2033 RSV patient s and/or patients aged 60+ years (1 - 1-dose 60+ series) RSV patients and/or patients aged 60+ years (1 - 1-dose 60+ series) [facility] Start: 09-14-2029 Lipid panel [facility] Start: 11-13-2027 Diabetes mellitus screening [facility] Start: 09-14-2027 Diabetes mellitus screening [facility] Start: 11-08-2025 Hemoglobin A1c measurement [facility] Start: 09-14-2025 Hemoglobin A1c measurement [facility] Start: 05-19-2025 Influenza vaccination [facility] Start: 05-16-2025 End: 05-16-2025 Admission to same day surgery center 05/16/2025 1:05 PM EDT - 05/16/2025 3:05 PM EDT Surgery [facility] [place] [address] [place] [address] [place] [address] [address] Department of [place] [address] SURGICAL PROCUREMENT, GRAFT, SKIN, FULL-THICKNESS, LOWER EXTREMITY [16207 (CPT )] [facility] [place] Comment on above: SURGICAL PROCUREMENT , GRAFT, SKIN, FULL-THICKNESS, LOWER EXTREMITY [56905 (CPT )] Start: 05-16-2025 End: 05-16-2025 Fth/gft fr w/dir clsr s/a/l ea addl 20 cm/< SURGICAL PROCUREMENT, GRAFT, SKIN, FULL-THICKNESS, LOWER EXTREMITY Wound of thigh 05/16/2025 1:05 PM EDT Virtual [facility] [place] Start: 05-16-2025 Subsequent hospital visit by physician 05/16/2025 11:35 AM EDT Hospital Encounter [facility] [place] [address] [place] [address] [place] [address] [address] Department [place] [address] [facility] [place] Start: 05-13-2025 End: 05-13-2025 Telemedicine consultation with patient 05/13/2025 2:00 PM EDT Telemedicine [facility] [address] [place] [phone] Astrid Hawley, PERFORATOR-SHAREPOINT SPECIALIST [address] [place] [address] [facility] Start: 04-30-2025 End: 04-30-2025 Admission to establishment 04/30/2025 9:15 AM EDT Pre-Admission Testing [facility] [address] [place] [phone] [facility] Start: 04-07-2025 End: 04-07-2025 Telemedicine consultation with patient 04/07/2025 1:30 PM EDT Telemedicine [facility] [address] [place] [phone] Astrid Hawley, PERFORATOR-SHAREPOINT SPECIALIST [address] [place] [address] [facility] Start: 03-24-2025 End: 03-24-2025 Patient encounter procedure 03/24/2025 11:00 AM EDT Office Visit [facility] [address] [address] [facility] [place] [phone] [facility] Start: 03-11-2025 End: 03-11-2025 Patient encounter procedure 03/11/2025 12:00 PM EDT Office Visit [address] [place] [phone] [place] [address] [address] [place] [address] [facility] Start: 03-11-2025 End: 03-11-2025 Telemedicine consultation with patient 03/11/2025 12:00 PM EDT Telemedicine [address] [place] [phone] [place] [address] [address] [place] [address] [facility] Start: 03-10-2025 End: 03-10-2026 Drug Screen 9 Panel, Blood with Reflex to Confirmation Drug Screen 9 Panel, Blood with Reflex to Confirmation Lab Routine Encounter for monitoring opioid maintenance therapy Expected: 03/10/2025 (Approximate), Expires: 03/10/2026 [facility] Work Phone: Comment on above: Expected: 03/10/2025 (Approximate), Expires: 03/10/2026 Start: 03-10-2025 End: 03-10-2025 Patient encounter procedure 03/10/2025 2:00 PM EDT Office Visit [facility] [address] [phone] sAtrid Hawley, PERFORATOR-SHAREPOINT SPECIALIST [address] [place] [address] [facility] Start: 01-27-2025 End: 01-27-2025 Follow-up encounter 01/27/2025 2:40 PM EDT Follow-Up [facility] [address] [place] [phone] Ara Riggs, PA-C [address] [place], [place] [phone] [facility] Start: 01-21-2025 End: 01-21-2025 Patient encounter procedure 01/21/2025 2:30 PM EDT Office Visit [facility] [address] [phone] Astrid Hawley, PERFORATOR-SHAREPOINT SPECIALIST [address] [place] [address] [facility] Start: 01-16-2025 End: 01-16-2025 ambulatory 01/16/2025 4:00 PM EDT Infusion [facility] [address] [place] [phone] [facility] Start: 01-16-2025 End: 01-16-2025 Patient encounter procedure 01/16/2025 3:00 PM EDT Office Visit [facility] [address] [phone] Sarah Rodarte, PERFORATOR-SHAREPOINT SPECIALIST [address] [place] [address] [facility] Start: 01-13-2025 End: 01-13-2025 Patient encounter procedure 01/13/2025 2:00 PM EDT Appointment [facility] [address] [place] [address] [facility] Start: 01-10-2025 End: 01-10-2025 Patient encounter procedure 01/10/2025 4:45 PM EDT Appointment [facility] [address] [place] [address] [facility] Start: 01-10-2025 End: 01-10-2026 CBC W Auto Differential panel - Blood CBC and Auto Differential Lab Routine Squamous cell carcinoma of left hip Expected: 01/10/2025, Expires: 01/10/2026 [facility] Service [facility] Work Phone: Comment on above: Expected: 01/10/2025 , Expires: 01/10/2026 Start: 01-10-2025 End: 01-10-2026 Comprehensive metabolic 2000 panel - Serum or Plasma Comprehensive metabolic panel Lab Routine Squamous cell carcinoma of left hip Expected: 01/10/2025, Expires: 01/10/2026 [facility] Work Phone: Comment on above: Expected: 01/10/2025 , Expires: 01/10/2026 Start: 01-10-2025 End: 01-10-2026 Lactate dehydrogenase [Enzymatic activity/volume] in Serum or Plasma by Lactate to pyruvate reaction Lactate dehydrogenase Lab Routine Squamous cell carcinoma of left hip Expected: 01/10/2025, Expires: 01/10/2026 [facility] Work Phone: Comment on above: Expected: 01/10/2025 , Expires: 01/10/2026 Start: 01-10-2025 End: 01-10-2025 ambulatory 01/10/2025 1:00 PM EDT Infusion [facility] [address] [place] [address] [facility] Start: 01-10-2025 End: 01-10-2025 Patient encounter procedure [facility] Start: 01-09-2025 End: 01-09-2025 Patient encounter procedure [facility] Start: 01-08-2025 End: 01-08-2025 Patient encounter procedure [facility] Start: 01-07-2025 End: 01-07-2025 ambulatory [facility] Start: 01-07-2025 End: 01-07-2025 Patient encounter procedure [facility] Start: 01-07-2025 End: 01-07-2025 Patient encounter procedure 01/07/2025 8:30 AM EDT Appointment [facility] [address] [place] [address] [facility] Start: 01-06-2025 End: 01-06-2025 Patient encounter procedure 01/06/2025 6:00 PM EDT Appointment [facility] [address] [place] [address] [facility] Start: 12-30-2024 End: 12-30-2024 ambulatory [facility] Start: 12-30-2024 End: 12-30-2024 Patient encounter procedure 12/30/2024 10:00 AM EDT Office Visit [facility] [address] [place] [address] Astrid Hawley, PERFORATOR-SHAREPOINT SPECIALIST [address] [place] [address] [facility] Start: 12-20-2024 End: 12-20-2024 ambulatory [facility] Start: 12-17-2024 End: 12-17-2024 ambulatory [facility] Start: 12-17-2024 End: 12-17-2024 Patient encounter procedure 12/17/2024 1:00 PM EDT Office Visit [facility] [address] [place] [phone] Astrid Hawley, PERFORATOR-SHAREPOINT SPECIALIST [address] [place] [address] [facility] Start: 12-06-2024 End: 12-06-2025 CBC W Auto Differential panel - Blood CBC and Auto Differential Lab Routine Squamous cell carcinoma of left hip Expected: 12/06/2024, Expires: 12/06/2025 [facility] Service Area Work Phone: Comment on above: Expected: 12/06/2024 , Expires: 12/06/2025 Start: 12-06-2024 End: 12-06-2025 Comprehensive metabolic 2000 panel - Serum or Plasma Comprehensive metabolic panel Lab Routine Squamous cell carcinoma of left hip Expected: 12/06/2024, Expires: 12/06/2025 [facility] Work Phone: Comment on above: Expected: 12/06/2024 , Expires: 12/06/2025 Start: 12-06-2024 End: 12-06-2025 Corticotropin [Mass/volume] in Plasma Acth Lab Routine Squamous cell carcinoma of left hip Expected: 12/06/2024, Expires: 12/06/2025 [facility] Work Phone: Comment on above: Expected: 12/06/2024 , Expires: 12/06/2025 Start: 12-06-2024 End: 12-06-2025 Cortisol [Mass or Moles/volume] in Serum or Plasma --AM peak specimen Cortisol Am Lab Routine Squamous cell carcinoma of left hip Expected: 12/06/2024, Expires: 12/06/2025 [facility] Work Phone: Comment on above: Expected: 12/06/2024 , Expires: 12/06/2025 Start: 12-06-2024 End: 12-06-2025 Lactate dehydrogenase [Enzymatic activity/volume] in Serum or Plasma by Lactate to pyruvate reaction Lactate dehydrogenase Lab Routine Squamous cell carcinoma of left hip Expected: 12/06/2024, Expires: 12/06/2025 [facility] Work Phone: Comment on above: Expected: 12/06/2024 , Expires: 12/06/2025 Start: 12-06-2024 End: 12-06-2025 Tsh With Reflex To Free T4 If Abnormal Tsh With Reflex To Free T4 If Abnormal Lab Routine Squamous cell carcinoma of left hip Expected: 12/06/2024, Expires: 12/06/2025 [facility] Work Phone: Comment on above: Expected: 12/06/2024 , Expires: 12/06/2025 Start: 11-29-2024 End: 11-29-2024 ambulatory [facility] Start: 11-12-2024 End: 11-12-2024 ambulatory [facility] Start: 09-30-2024 End: 09-30-2024 Patient encounter procedure 09/30/2024 10:00 AM EST Office Visit [facility] [address] [facility] [address] [place] [phone] [place] [address] [address] Department of Dermatology/[place] [address] [facility] Start: 09-24-2024 End: 09-24-2024 Telemedicine consultation with patient 09/24/2024 8:40 AM EST Telemedicine [facility] [address] [facility] [address] [place] [phone] [place] [address] [place] [address] [facility] Start: 09-20-2024 End: 09-20-2024 Patient encounter procedure 09/20/2024 11:30 AM EST Office Visit [address] [place] [phone] Ronna Carpenter, PERFORATOR-SHAREPOINT SPECIALIST [address] [place], [place] [phone] [facility] Start: 09-18-2024 End: 09-17-2025 CBC panel - Blood by Automated count CBC Lab Routine Wound infection Expected: 09/18/2024 (Approximate), Expires: 09/17/2025 [facility] Work Phone: Comment on above: Expected: 09/18/2024 (Approximate), Expires: 09/17/2025 Start: 09-18-2024 End: 09-17-2025 Renal function 2000 panel - Serum or Plasma Renal function panel Lab Routine Wound infection Expected: 09/18/2024 (Approximate), Expires: 09/17/2025 [facility] Service Area Work Phone: Comment on above: Expected: 09/18/2024 (Approximate), Expires: 09/17/2025 Start: 05-19-2024 COVID-19 Vaccine ( season) COVID-19 Vaccine ( season) [facility] Start: 05-19-2024 Influenza vaccination [facility] Start: 05-19-2024 [facility] Start: 04-12-2024 End: 04-12-2024 Patient encounter procedure 04/12/2024 9:00 AM EDT Office Visit [facility] [address] [address] [facility] [address] [place] [address] [place] [address] [address] Department of Dermatology/[place] [address] [facility] Start: 03-29-2024 End: 03-29-2024 Patient encounter procedure 03/29/2024 9:00 AM EDT Office Visit [facility] [address] [id number] [place] [address] [place] [address] [address] Department of Dermatology/[place] [address] [facility] Start: 03-19-2024 DTaP/Tdap/Td Vaccine s (2 - Td or Tdap) DTaP/Tdap/Td Vaccines (2 - Td or Tdap) [facility] Start: 03-19-2024 [facility] Start: 02-29-2024 End: 02-28-2025 ECG 12 lead (Ancillary Performed) [facility] Service Area Work Phone: Comment on above: Expected: 02/29/2024 (Approximate), Expires: 02/28/2025 Once for 1 Occurrenc es starting 02/29/2024 until 02/29/2024 Start: 02-09-2024 End: 02-09-2024 Patient encounter procedure 02/09/2024 9:30 AM EDT Office Visit [facility] [address] [address] [address] [place] [address] [address] Department of Dermatology/[place] [address] [facility] Start: 01-16-2024 End: 01-16-2024 Patient encounter procedure 01/16/2024 10:30 AM EDT Office Visit [facility] [address] [address] [address] [place] [address] [address] Department of Dermatology/[place] [address] [facility] Start: 11-23-2023 Subsequent hospital visit by physician 11/23/2023 11:01 AM EST Hospital Encounter [facility] [place] [address] [place] [phone] Clinical trial participant [facility] Comment on above: Clinical trial parti cipant Start: 2023 Pneumococcal vaccination Pneum ococcal Vaccine (2 of 2 - PCV) [facility] Start: 2023 Pneumococcal Vaccine : 50+ Years (2 of 2 - PCV) Pneumococcal Vaccine: 50+ Years (2 of 2 - PCV) [facility] Start: 2023 Screening for malign ant neoplasm of lung [facility] Start: 2023 Zoster Vaccines (1 of 2) Zoste r Vaccines (1 of 2) [facility] Start: 2023 [facility] Start: 05-19-2023 COVID-19 Vaccine ( season) COVID-19 Vaccine ( season) [facility] Start: 05-19-2023 Influenza vaccination Influenza Vacc ine (#1) [facility] Start: 03-19-2015 Pneumococcal vaccination Pneum ococcal Vaccine (2 of 2 - PCV) [facility] Start: 03-19-2015 [facility] Start: 1995 DTaP/Tdap/Td Vaccine s (1 - Tdap) DTaP/Tdap/Td Vaccines (1 - Tdap) [facility] Start: 1992 DTaP/Tdap/Td Vaccine s (1 - Tdap) DTaP/Tdap/Td Vaccines (1 - Tdap) [facility] Start: 1992 Hepatitis B Vaccines (1 of 3 - 19+ 3-dose series) Hepatitis B Vaccines (1 of 3 - 19+ 3-dose series) [facility] Start: 1992 Urine screening for protein [facility] Start: 1992 Zoster Vaccines (1 of 2) Zoste r Vaccines (1 of 2) [facility] Start: 1992 [facility] Start: 1991 Diabetes mellitus screening Diabetes Screening [facility] Start: 1991 Hepatitis C screening S [facility] Start: 1985 Depression Screening Depression Scre ening [facility] Start: 1978 COVID-19 Vaccine (#1) COVID-19 Vacci ne (#1) [facility] Start: 1978 [facility] Start: 1974 MMR Vaccines (1 of 1 - Standard series) MMR Vaccines (1 of 1 - Standard series) [facility] Start: 1974 [facility] Start: 01-29-1974 COVID-19 Vaccine (#1) COVID-19 Vacci ne (#1) [facility] Start: 01-29-1974 Examination of skin [facility] Start: 1973 Hepatitis B Vaccines (1 of 3 - 3-dose series) Hepatitis B Vaccines (1 of 3 - 3-dose series) [facility] Start: 1973 HIV screening [facility] Start: 1973 Lipid panel Lipid Panel [facility] Start: 1973 Screening for malign ant neoplasm of colon [facility] Start: 1973 Yearly Adult Physical Yearly Adult P hysical [facility] Start: 1973 [facility] End: 12-17-2024 Acupuncture eval and treat [facility] Service Area Work Phone: End: 09-12-2024 Aerobic and Anaerobic Culture with Stain [facility] Work Phone: Comment on above: Once (Lab) for 1 Occ urrences starting 09/12/2024 until 09/12/2024 End: 11-08-2024 Aerobic and Anaerobic Culture with Stain Aerobic and Anaerobic Culture with Stain Microbiology STAT Once (Lab) for 1 Occurrences starting 11/08/2024 until 11/08/2024 [facility] Work Phone: Comment on above: Once (Lab) for 1 Occ urrences starting 11/08/2024 until 11/08/2024 End: 12-06-2024 Aerobic and Anaerobic Culture with Stain [facility] Work Phone: Comment on above: Once (Lab) for 1 Occ urrences starting 12/06/2024 until 12/06/2024 End: 12-22-2024 Aerobic and Anaerobic Culture with Stain [facility] Work Phone: Comment on above: Once (Lab) for 1 Occ urrences starting 12/22/2024 until 12/22/2024 End: 09-16-2024 AFB CULTURE & STAIN; [facility]; [id number] - Miscellaneous Test [facility] Work Phone: Comment on above: Once (Lab) for 1 Occ urrences starting 09/16/2024 until 09/16/2024, 1 completed End: 11-18-2024 Art Therapy eval and treat [facility] Work Phone: End: 12-08-2024 Art Therapy evma and treat [facility] Work Phone: Bacteria identified in Blood by Culture [facility] Bacteria identified in Blood by Culture Blood Culture Microbiology Routine 09/13/2024 11:14 PM EST [facility] Work Phone: Bacteria identified in Blood by Culture [facility] Bacteria identified in Blood by Culture [facility] Bacteria identified in Blood by Culture [facility] Bacteria identified in Unspecified specimen by Aerobe culture Culture, Aerobic Bacteria with Gram Stain Microbiology STAT 09/12/2024 9:58 PM EST [facility] End: 11-08-2024 Bacteria identified in Unspecified specimen by Aerobe culture Culture, Aerobic Bacteria with Gram Stain Microbiology Timed Once for 1 Occurrences starting 11/08/2024 until 11/08/2024 [facility] Work Phone: Comment on above: Once for 1 Occurrenc es starting 11/08/2024 until 11/08/2024 Bacteria identified in Unspecified specimen by Aerobe culture Culture, Aerobic Bacteria with Gram Stain Microbiology STAT 12/06/2024 12:18 PM EDT [facility] Bacteria identified in Unspecified specimen by Aerobe culture Culture, Aerobic Bacteria with Gram Stain Microbiology STAT 12/22/2024 1:37 PM EDT [facility] End: 09-12-2024 Bacteria identified in Unspecified specimen by Anaerobe culture [facility] Comment on above: Once for 1 Occurrenc es starting 09/12/2024 until 09/12/2024 End: 11-08-2024 Bacteria identified in Unspecified specimen by Anaerobe culture Anaerobic culture Microbiology Timed Once for 1 Occurrences starting 11/08/2024 until 11/08/2024 [facility] Comment on above: Once for 1 Occurrenc es starting 11/08/2024 until 11/08/2024 End: 12-06-2024 Bacteria identified in Unspecified specimen by Anaerobe culture [facility] Comment on above: Once for 1 Occurrenc es starting 12/06/2024 until 12/06/2024 Bacteria identified in Unspecified specimen by Anaerobe culture Anaerobic culture Microbiology STAT 12/22/2024 1:37 PM EDT [facility] Basic metabolic 2000 panel - Serum or Plasma [facility] Work Phone: CBC W Auto Different ial panel - Blood CBC and Auto Differential Lab Routine Morning draw (Lab) until discontinued starting 09/14/2024, 4 completed [facility] Work Phone: Comment on above: Morning draw (Lab) u ntil discontinued starting 09/14/2024, 4 completed CBC W Auto Different ial panel - Blood [facility] Work Phone: CBC W Auto Different ial panel - Blood [facility] Work Phone: CBC W Auto Different ial panel - Blood [facility] Work Phone: End: 10-11-2024 Consult to Interventional Radiology [facility] Work Phone: End: 11-12-2024 Consult to Interventional Radiology [facility] Work Phone: End: 11-20-2024 Consult to Interventional Radiology [facility] Work Phone: ECG 12 Lead ECG 12 Lead ECG Routine 09/14/2024 12:30 AM EST [facility] Work Phone: End: 11-13-2024 ECG 12 lead [facility] Work Phone: ECG 12 lead (Ancilla ry Performed) ECG 12 lead (Ancillary Performed) ECG Routine Clinical trial participant 11/23/2023 11:01 AM EST [facility] Work Phone: Electrocardiogram, 12-lead PRN ACS symptoms Electrocardiogram, 12-lead PRN ACS symptoms ECG Routine As needed until discontinued starting 09/13/2024 [facility] Work Phone: Comment on above: As needed until disc ontinued starting 09/13/2024 Electrocardiogram, 12-lead PRN ACS symptoms [facility] Work Phone: Electrocardiogram, 12-lead PRN ACS symptoms [facility] Work Phone: Electrocardiogram, 12-lead PRN ACS symptoms [facility] Work Phone: Fth/gft fr w/dir cls r s/a/l ea addl 20 cm/< SURGICAL PROCUREMENT, GRAFT, SKIN, FULL-THICKNESS, LOWER EXTREMITY Wound of thigh Virtual [facility] [place] End: 09-13-2024 Fungitell Beta-D Glucan Serum [facility] Work Phone: Comment on above: Once (Lab) for 1 Occ urrences starting 09/13/2024 until 09/13/2024 Fungus identified in Unspecified specimen by Culture Fungal Culture/Smear Microbiology Routine 09/14/2024 11:41 AM EST [facility] Work Phone: Fungus identified in Unspecified specimen by Culture [facility] Work Phone: End: 09-13-2024 Histoplasma antigen, serum [facility] Work Phone: Comment on above: Once (Lab) for 1 Occ urrences starting 09/13/2024 until 09/13/2024 Magnesium [Mass/volu me] in Serum or Plasma Magnesium Lab Routine Morning draw (Lab) until discontinued starting 09/14/2024, 4 completed [facility] Work Phone: Comment on above: Morning draw (Lab) u ntil discontinued starting 09/14/2024, 4 completed Magnesium [Mass/volu me] in Serum or Plasma [facility] Work Phone: Magnesium [Mass/volu me] in Serum or Plasma [facility] Work Phone: End: 12-21-2024 Magnesium [Mass/volume] in Serum or Plasma [facility] Work Phone: End: 11-18-2024 Music Therapy eval and treat [facility] Work Phone: End: 12-08-2024 Music Therapy eval and treat [facility] Work Phone: Phosphate [Mass/volu me] in Serum or Plasma [facility] Work Phone: Renal function 1999 panel - Serum or Plasma Renal Function Panel Lab Routine Morning draw (Lab) until discontinued starting 09/14/2024, 4 completed [facility] Work Phone: Comment on above: Morning draw (Lab) u ntil discontinued starting 09/14/2024, 4 completed Renal function 1999 panel - Serum or Plasma [facility] Work Phone: Renal function 1999 panel - Serum or Plasma [facility] Work Phone: Immunizations Immunization Date Immunization Notes Care Provider Fa pasha 12-08-2024 influenza vaccine tiss-cult subunt (Flucelvax) STANDARD-DOSE injection 0.5 mL Fer Hollins MD Work Phone: [facility] Payers Date Payer Category Payer Self-pay 2024 Medicaid (Managed Care) [id number] 2024 Medicaid HMO [id number] 2024 Unknown [id number] 2024 Medicaid [id number] 2022 Managed Care (Private) [employer] [facility] [id number] 2022 Private Health Insurance [id number] 2022 Private Health Insurance [id number] 1973 Unknown [id number] 2.16.840.1.453341.3.579. 2.1243 1973 Unknown [id number] 2.16840.1.697717.3.579. 2.1243 1973 Unknown [id number] 2.16840.1.412024.3.579. 2.1243 1973 Unknown [id number] 2.16840.1.985528.3.579. 2.1243 1973 Unknown [id number] 2.16840.1.541307.3.579. 2.1243 1973 Unknown [id number] 2.16.840.1.708318.3.579. 2.1243 1973 Unknown [id number] 2.16.840.1.708880.3.579. 2.1243 1973 Unknown [id number] 2.16.840.1.558119.3.579. 2.1243 1973 Unknown [id number] 2.16.840.1.764269.3.579. 2.1244 1973 Unknown [id number] 2.16.840.1.484043.3.579. 2.1244 1973 Unknown [id number] 2.16.840.1.814768.3.579. 2.1244 1973 Unknown [id number] 2.16.840.1.730230.3.579. 2.1244 1973 Unknown [id number] 2.16.840.1.715784.3.579. 2.1244 1973 Unknown [id number] 2.16.840.1.339155.3.579. 2.1244 1973 Unknown [id number] 2.16.840.1.040415.3.579. 2.1244 1973 Unknown [id number] 2.16.840.1.584059.3.579. 2.1244 1973 Unknown [id number] 2.16.840.1.741351.3.579. 2.1244 1973 Unknown [id number] 2.16.840.1.195007.3.579. 2.1244 1973 Unknown [id number] 2.16.840.1.247714.3.579. 2.1244 1973 Unknown [id number] 2.16.840.1.344251.3.579. 2.1244 1973 Unknown [id number] 2.16.840.1.979070.3.579. 2.1244 1973 Unknown [id number] 2.16.840.1.346743.3.579. 2.1244 1973 Unknown [id number] 2.16840.1.208757.3.579. 2.1244 1973 Unknown [id number] 2.16.840.1.607081.3.579. 2.1244 1973 Unknown [id number] 2.16.840.1.120744.3.579. 2.1244 1973 Unknown [id number] 2.16.840.1.043711.3.579. 2.1244 1973 Unknown [id number] 2.16.840.1.770471.3.579. 2.1244 1973 Unknown [id number] 2.16.840.1.208431.3.579. 2.1245 1973 Unknown [id number] 2.16.840.1.793567.3.579. 2.1244 1973 Unknown [id number] 2.16.840.1.294604.3.579. 2.124 1973 Unknown [id number] 2.16.840.1.923184.3.579. 2.1244 1973 Unknown [id number] 2.16.840.1.363909.3.579. 2.124 1973 Unknown [id number] 2.16.840.1.513238.3.579. 2.1244 1973 Unknown [id number] 2.16.840.1.475001.3.579. 2.1245 Unknown [id number] 2.16.840.1.413804.3.579. 2.462 Unknown [id number] 2.16.840.1.303779.3.579. 2.462 Unknown [id number] 2.16.840.1.931919.3.579. 2.462 Unknown [id number] 2.16.840.1.025693.3.579. 2.462 Unknown [id number] 2.16.840.1.181067.3.579. 2.462 Unknown [id number] 2.16.840.1.609677.3.579. 2.462 Social History Date Type Detail Facility [facility] smoking consumption unknown [facility] Start: 1975 Sex Assigned At Not on file [facility] Start: 09-13-2024 End: 02-17-2025 Gender identity Not on file [facility] Start: 03-29-2023 End: 02-04-2025 Exposure to SARS-CoV-2 (event) Not sure [facility] Start: 04-08-2023 End: 12-27-2024 Sex Male (finding) [facility] Start: 09-18-1986 [facility] Sm[facility] daily [facility] Work Phone: Start: 09-18-1986 End: 09-18-1986 History of tobacco use Cigarette Smoker [facility] Work Phone: Start: 09-13-2024 End: 02-17-2025 Cigarettes smoked current (pack per day) - Reported 1 [facility] Work Phone: Start: 09-13-2024 End: 11-10-2024 Tobacco use and exposure Smokeless tobacco non-user [facility] Work Phone: How often to you hav e a drink containing alcohol? Never [facility] Work Phone: Start: 11-23-2023 How many standard drinks containing alcohol do you have on a typical day? Patient does not drink [facility] Work Phone: How hard is it for y ou to pay for the very basics like food, housing, medical care, and heating Very hard [facility] In the past 12 month s, was there a time when you were not able to pay the mortgage or rent on time? Yes [facility] Work Phone: At any time in the p ast 12 months, were you homeless or living in assisted [including now]? No [facility] Work Phone: How hard is it for y ou to pay for the very basics like food, housing, medical care, and heating Somewhat hard [facility] (I/We) worried wheth er (my/our) food would run out before (I/we) got money to buy more. Sometimes true [facility] Work Phone: (I/We) worried wheth er (my/our) food would run out before (I/we) got money to buy more. Never true [facility] [employer] [facility] Start: 11-10-2024 [facility] Ex-smoker [facility] Start: 09-18-2023 End: 09-18-1986 History of tobacco use Current smoker [facility] Work Phone: Start: 11-10-2024 End: 03-14-2025 Alcoholic beverage intake Ex-drinker (finding) [facility] Work Phone: Start: 1975 Sex Assigned At Male [facility] Goals Date Patient Goal Desired Activity /State Personal health goal Functional Status Date Assessment Result Facility 12-07-2024 Are you deaf, or do you have serious difficulty hearing No 12/07/2024 2:58 PM EDT Josie Townsend RN No [facility] 12-07-2024 Are you blind, or do you have serious difficulty seeing, even when wearing glasses No 12/07/2024 2:58 PM EDT Josie Townsend RN No [facility] 12-07-2024 Do you have serious difficulty walking or climbing stairs Yes 12/07/2024 2:58 PM EDT Josie Townsend RN Yes [facility] 12-07-2024 Because of a physica l, mental, or emotional condition, do you have difficulty doing errands alone such as visiting a physician's office or shopping Yes 12/07/2024 2:58 PM EDT Josie Townsend RN Yes [facility] Mental Status Date Assessment Result Facility 12-07-2024 Because of a physica l, mental, or emotional condition, do you have serious difficulty concentrating, remembering, or making decisions No 12/07/2024 2:58 PM EDT Josie Townsend RN No [facility] Clinical Notes 04-04-2024 to 04-07-2025 TRAVIS Watson - 04/07/2025 1:30 PM Patricia Swain RN - 03/24/2025 11:00 AM Tuyet Mina MD - 03/11/2025 12:00 PM TRAVIS Merrill - 03/10/2025 2:00 PM EDT Note Date & Type Note Facility 04-07-2025 History of Present illness Narrative Images from the original note were not included. SUPPORTIVE AND PALLIATIVE ONCOLOGY OUTPATIENT FOLLOW-UP Virtual or Telephone Consent An interactive audio and video telecommunication system which permits real time communications between the patient (at the originating site) and provider (at the distant site) was utilized to provide this telehealth service. Verbal consent was requested and obtained from Kevan La on this date, 04.07.25 for a telehealth visit. SERVICE DATE: 04/07/2025 Subjective HISTORY OF PRESENT ILLNESS: Kevan La [...] by Supportive Oncology for management of pain. 04/07/25: States he recently got up to be weight and had severe R hip pain. Pending imaging to rulel out fracture as ordered by NH provider. Also with some left hip snow. Pain Assessment: See above Location: left thigh Onset: weeks Severity: moderate Quality: sharp Timing/Duration: intermittent with dressing changes Referral Pattern: localized but sometimes radiates to foot Additional Symptom Assessment: Numbness or tingling in hands/feet/other: none Headache: none Lack of appetite: none Weight loss: a little Pain in mouth/swallowing: none Dry mouth: a little Taste changes: none Nausea/early satiety: none Vomiting: a little Constipation: none Diarrhea: none Lack of energy: a little Difficulty sleeping: none Anxiety: none Depression: a little Shortness of breath: none Other: none Information [...] x10*3/uL Final PHYSICAL EXAMINATION Vital Signs: 02/16/2025 8:25 PM 02/17/2025 12:02 AM 02/17/2025 3:57 AM 02/17/2025 9:12 AM 03/03/2025 3:38 PM 03/10/2025 2:54 PM 03/24/2025 11:14 AM Vitals Systolic 104 97 102 108 98 93 101 Diastolic 61 56 63 64 55 51 60 BP Location Right arm Heart Rate 66 62 69 55 47 68 Temp 36.7 C (98.1 F) 36.6 C (97.9 F) 36.4 C (97.5 F) 36.3 C (97.3 F) 36 C (96.8 F) Resp 16 16 16 16 16 14 Weight (lb) -- -- Visit Report Report Report Report Physical Exam HENT: Head: Normocephalic and atraumatic. Mouth/Throat: Pharynx: Oropharynx is clear. Eyes: Extraocular Movements: Extraocular movements intact. Conjunctiva/sclera: Conjunctivae normal. Pulmonary: Effort: Pulmonary effort is normal. Neurological: Mental Status: He is alert. Psychiatric: Mood and Affect: Mood normal. Thought Content: Thought content normal. ASSESSMENT/PLAN Pain Pain is: cancer related pain Type: somatic and neuropathic Continue: Gabapentin 300mg daily Tizanidine 2mg TID Methadone 10mg TID (qtc 418 12/12/24- repeat EKG yearly or after increase) Tylenol 1g TID Oxycodone 20-30mg q4 PRN Ibuprofen 600mg QID to PRN Opioid Use Medication Management: - OARRS report reviewed with no aberrant behavior; consistent with prescriptions/records and patient history - MED 270 + 30mg methadone . Overdose Risk Score 500. This has been discussed with patient. - [...] BID -continue miralax 17g daily Sleeping Difficulty -continue melatonin to 6mg at bedtime Supportive Interventions: Interventions: Social work referral for: Advance Directives Medical Decision Making/Goals of Care/Advance Care Planning: Patient's current clinical condition, including diagnosis, and management plan, and goals of care were discussed. Goals: symptom control and cancer directed therapy Advance Directives Existence of Advance Directives: Yes - no interested Decision maker: Wishes to make his brother, Omkar La ([phone]) his HCPOA Next Follow-Up Visit: Return to clinic in 4 weeks virtual Signature and billing Medical complexity was moderate level due to due to complexity of problems, extensive data review, and high risk of management/treatment. Time was spent on the following: Prep Time, Time Directly with Patient/Family/Caregiver, Documentation Time. Total time spent: 30 min Data Diagnostic tests and information reviewed for today's visit: Most recent labs and imaging results, Medications Some elements copied from Supportive Oncology note on 03/10/25, the elements have been updated and all reflect current decision making from today, 04/07/2025. Plan of Care discussed with: Patient, RN SIGNATURE: TRAVIS Waston Contact information: Supportive and Palliative Oncology Monday-Monday 8 AM-5 PM , press option #5 Or [employer] Secure Chat documented in this encounter [facility] Work Phone: 03-24-2025 History of Present illness Narrative Images from [...] to a Marjolin ulcer. He presented to [facility] on 12/24 for worsening disease of [...] on 02/04 per plastic surgery (Dr. Jalloh). 03/03: he reports continued chronic pain from left hip. He is taking Methadone and Oxy for his chronic pain with relief at times. Dressing changes are being performed at his local facility with WTD BID. His optimizing his nutrition with protein and Ensure shakes between meals. No record of antibiotic use. 03/24: He continues to report chronic pain from left hip and left thigh/gluteal wound. Dressing changes are being performed at his facility WTD BID. Endorses pain at pressure ulcer at his right gluteal area. States overnight he had some bleeding from left thigh/gluteal wound. Reports protein intake with protein shakes while at facility. Review of Systems ROS: All 10 systems were reviewed and are unremarkable except for those mentioned in HPI. Objective : Physical Exam Vitals and nursing note reviewed. Exam conducted with a office cleaner present. Constitutional: General: not in acute distress. [...] that extends to the posterior mid thigh wound exposed, wound bed with red granulation tissue with some areas of yellow slough. The wound edges are grossly intact however, previous pathology showed positive margins. The remaining surrounding skin involving the thigh shows areas of hyperpigmentation/discoloration consistent with previous skin sheering forces and skin breakdown. No mal odor present at wound. No signs of infection. Assessment/Plan : S/p SCC in the setting of chronic medically refractory hidradenitis s/p operative debridement 10/13/2024 Presented today for wound evaluation of left thigh/gluteal wound and ongoing conversation of reconstruction -Pending surgical intervention plans for skin graft application, admin aware and will be getting patient scheduled for possible April time -Will follow up post-operatively in appropriate timeframe after surgery -Case request submitted (03/03) with appropriate outreach to admin -Recommend for continued WTD dressing BID -Continue with Q2 turns to offload bony prominences -Continue to optimize protein for optimal wound healing Kris Ren PA-C Plastic and Reconstructive Surgery documented in this encounter [facility] Work Phone: 03-11-2025 History of Present illness Narrative ASSESSMENT [...] healing. He has been recovering in a [place] [facility] facility and is making plans for skin [...] close his loop colostomy. Kong Mina MD harbor department manager Division of Surgical Oncology [phone] [email or web address] JOSÉ MIGUEL La is a 49 y.o. male who presents for a postoperative clinic visit. 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 Laparoscopic loop colostomy creation on 02/11/2025. Postoperative issues: Prolonged hospitalization, preoperatively and postoperatively, with ultimate discharge to [place] [facility]. He met with Dr. Jalloh last [...] at the margins. documented in this encounter [facility] Work Phone: 03-10-2025 History of Present illness [...] Wishes to make his brother, Omkar La ([phone]) his HCPOA Next Follow-Up Visit: Return to [...] Plan of Care discussed with: Patient SIGNATURE: Astrid Hawley APRN-SHAREPOINT SPECIALIST Contact information: Supportive and Palliative Oncology Monday-Monday 8 AM-5 PM , press option #5, then option #1. Or [employer] Secure Chat documented in this encounter [facility] Work Phone: 03-03-2025 History of Present illness [...] refractory hidradenitis s/p operative debridement 10/13/2024 per [facility] due to significant infection burden. 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 He presented to [facility] on 12/24 for worsening disease of [...] nursing note reviewed. Exam conducted with a office cleaner present. Constitutional: General: not in acute distress. [...] ongoing uncontrolled pain documented in this encounter [facility] Work Phone: 01-09-2025 History of Present illness Narrative Images from the original note were not included. Radiation Oncology On Treatment Visit Patient Name: Kevan La : 1975 Referring Provider: No ref. provider found Primary Care Provider: No Assigned PCP Generic Provider, Care Team: Patient Care Team: No Assigned Pcp Ernestina Hagan MD as PCP - General (Printed Circuit [employer] Panels Trimmer) Sreedhar Jiang MD as Consulting Physician (Hematology [...] Follow up PRN. documented in this encounter [facility] Work Phone: 12-24-2024 Plan of [...] maintained or improved Outcome: Adequate for Discharge [facility] 12-24-2024 Miscellaneous Notes Problem: Knowledge [...] Awaiting sensitivity results documented in this encounter [facility] 12-24-2024 Note Hospitalist Progress Note Subjective: Admit Date: 12/22/2024 PCP: No primary care provider on file. Room#: -708/[facility]708 A Chief Complaint Patient presents with Wound Infection Pt arrives by life care from [facility] [place], [facility] life care pt has had wound infection [...] Required levophed but is now off of. Formerly [facility] accepted him but waiting on bed until later this afternoon. He was boarded in our ED for 16hrs. Seen at bedside. Wounds are foul smelling. Pt states he was dropped off here from [facility] as it was the closest hospital. All [...] body function (HIGH). (more content not included)... [facility] 12-24-2024 History of Present illness Narrative Hospitalist Progress Note Subjective: Admit Date: 12/22/2024 PCP: No primary care provider on file. Room#: G4-342/K1-867 A Chief Complaint Patient presents with Wound Infection Pt arrives by life care from [facility] in [place], per life care pt has had wound [...] Required levophed but is now off of. Formerly [facility] accepted him but waiting on bed until later this afternoon. He was boarded in our ED for 16hrs. Seen at bedside. Wounds are foul smelling. Pt states he was dropped off here from [facility] as it was the closest hospital. All [...] Date -today - Location - Transfer to [facility] - Pending the following -transfer to Total time spent (which include face to face and non face to face encounters) : More than 30 minutes Extended Emergency Contact Information Primary Emergency Contact: Omkar La Mobile Relation: Brother Arben Fernandez MD Division of Hospital Medicine Inpatient Medical Services/[facility] Pharmacy to Dose Vancomycin - Progress Note Lab Results Component Value Date CREATININE 1.04 12/24/2024 BUN 7 (L) 12/24/2024 WBC 14.8 (H) 12/24/2024 Doses, serum creatinine, and vancomycin levels interfaced automatically to [employer] and data has been analyzed and interpreted. [...] creatinine, and vancomycin levels interfaced automatically to [employer] and data has been analyzed and interpreted. [...] via Secure Chat documented in this encounter [facility] 12-24-2024 Note Discharge Summary Kevan [...] Required levophed but is now off of. [facility] accepted him but waiting on bed until later this afternoon. He was boarded in our ED for 16hrs. Seen at bedside. Wounds are foul smelling. Pt states he was dropped off here from [facility] as it was the closest hospital. All [...] XR hip left 2 or 3 views [[id number]] Collected: 12/22/24 1330 Order Status: Completed Updated: 12/22/241333 Narrative: Patient Name: KEVAN LA : 1975 Exam Date/Time: 12/22/2024 13 (more content not included)... [facility] 12-24-2024 Hospital course Narrative Discharge Summary [...] Required levophed but is now off of. [facility] accepted him but waiting on bed until later this afternoon. He was boarded in our ED for 16hrs. Seen at bedside. Wounds are foul smelling. Pt states he was dropped off here from [facility] as it was the closest hospital. All [...] XR hip left 2 or 3 views [[id number]] Collected: 12/22/241329 Order Status: Completed Updated: 12/22/241333 [...] 1:33 PM EDT XR chest 1 view [[id number]] Collected: 12/22/24 1323 Order Status: Completed Updated: 12/22/24 1326 Narrative: [facility] 1975 [id number] Ex[facility] Date/Time: 12/22/2024 13:20 Procedure: XR CHEST [...] FL modified barium with video and speech [[id number]] Collected: 12/16/24 7098 Order Status: Completed Updated: 12/22/24 1150 Narrative: Interpreted By: Jayson Abdi and Patriarca Hannah STUDY: FL MODIFIED BARIUM SWALLOW STUDY;; 12/16/2024 9:38 am INDICATION: Signs/Symptoms:r/o any dysphagia. COMPARISON: None. ACCESSION NUMBER(S): [id number] ORDERING CLINICIAN: GIBSON MENDIOLA TECHNIQUE: MBSS completed. Informed verbal consent obtained prior to completion of exam. Trials of thin, nectar thick, puree, and regular solids given. Fluoroscopy time : 1.8 minutes. Total of 2800 images were provided for review. 100 mL barium contrast. CLINICAL LEADER: Makayla Dunham Phone/Pager: Stuffle SPEECH FINDINGS: Patient Name: Kevan La : 1975 Today's Date: 12/16/24 Start Time: 845 Stop Time: 915 Time Calculation (min): 30 min Modified Barium Swallow Study completed. Informed verbal consent obtained prior to completion of exam. Trials of thin liquid, mildly thick liquid, puree, and solids were given. CLINICAL LEADER: MINDY Camp Contact info: [employer] - is now [employer] Reason for Referral: C/f aspiration/oropharyngeal dysphagia Patient Hx: Kevan La is a 49 y.o. 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 CLINICAL LEADER Frequency: 2x per week Duration: 1-2 weeks [...] given on all accounts. Treatment Provided Today: CLINICAL LEADER provided extensive education and training to pt/pt [...] further evaluation by medical specialists, as applicable. CLINICAL LEADER Impressions with Severity Rating: Pt presenting with [...] obtained, suspect within normal limits for clearance CLINICAL LEADER recommends cautious initiation of thin liquids and easy to chew diet. See additional PO intake guidelines outlined below. If pt demonstrates any change/decline in medical/mental/respiratory status please make NPO and alert CLINICAL LEADER. Will continue to follow while in acute care setting to ensure diet tolerance and use of safe swallow guidelines. aware of recommendations Dayna's Penetration Aspiration Scale Thin Liquids: 3. PENETRATION with LOW ASPIRATION risk - contrast remains above vocal cords, visible residue [place] Thick Liquids: 3. PENETRATION with LOW [...] Dilan Hester. This study was interpreted at [place], [place]. MACRO: None Signed by: Jayson Abdi 12/16/2024 4:54 PM Dictation workstation: [id number] MR femur left w and wo IV contrast [[id number]] Collected: 12/12/24 1334 Order Status: Completed Updated: 12/22/24 1150 Narrative: Interpreted By: Kong Armijo and Lawrence Austen STUDY: MRI of the left femur with and without contrast dated 12/12/2024. INDICATION: Gluteal abscess/malignancy. Biopsy result of squamous cell carcinoma. History of chronic hidradenitis suppurativa. COMPARISON: None. Correlation is made with 12/06/2024 and 11/19/2024 CT examinations. ACCESSION NUMBER(S): [id number] ORDERING CLINICIAN: GIBSON MENDIOLA TECHNIQUE: Multiplanar multisequence [...] Kong Armijo 12/12/2024 1:33 PM Dictation workstation: [id number] MR femur left wo IV contrast [[id number]] Collected: 12/12/24 1320 Order Status: Completed Updated: 12/22/24 1150 Narrative: Interpreted By: Kong Armijo and Lawrence Austen STUDY: MRI of the left femur with and without contrast dated 12/10/2024. 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 History of chronic hidradenitis suppurativa. COMPARISON: Correlation is made with 12/06/2024 and 11/19/2024 CT examinations. ACCESSION NUMBER(S): [id number] ORDERING CLINICIAN: TOYA RUBIO TECHNIQUE: Multiplanar multisequence MRI of the left femur was performed with and without intravenous gadolinium based contrast. FINDINGS: No images were obtained as the patient was unable to cooperate for the exam. Impression: No images were obtained as the patient was unable to cooperate for the exam. MACRO: None Signed by: Kong Armijo 12/12/2024 1:18 PM Dictation workstation: [id number] CT pelvis w IV contrast [[id number]] Collected: 12/06/24 1324 Order Status: Completed Updated: 12/06/24 1330 Narrative: Patient Name: [facility]EVAN LA [facility] 1975 [id number] Exam Date/Time: 12/06/2024 12:46 Procedure: CT PELVIS [...] Complexity: follow up within 7-14 calendar days (90919) [] Severe Complexity: follow up within 7 calendar days (54130) FOLLOW UP TESTING, PENDING RESULTS OR REFERRALS [...] 12/24/2024, 10:10 AM documented in this encounter [facility] 12-24-2024 Nurse Note See new oxy 5 mg one time dose order [facility] 12-24-2024 Nurse Note See new oxy 5 mg one time dose order Attending secure chatted due to patient asking for PRN pain meds with soft BP's. Awaiting answer Called and this nurse gave report to Lori RN for patient. P/U time still 1230. Patient updated. Call received from . Patient has bed waiting at [facility] room [facility]. Nurse to nurse report number [phone]. Social work to arrange transportation in AM. Patient notified documented in this encounter [facility] 12-24-2024 Nurse Note Attending secure chatted due to patient asking for PRN pain meds with soft BP's. Awaiting answer [facility] 12-24-2024 Nurse Note Called and this nurse gave report to Lori NEWTON for patient. P/U time still 1230. Patient updated. [facility] 12-24-2024 Note Pharmacy to Dose Van comycin - Progress Note Lab Results Component Value Date CREATININE 1.04 12/24/2024 BUN 7 (L) 12/24/2024 WBC 14.8 (H) 12/24/2024 Doses, serum creatinine, and vancomycin levels interfaced automatically to [employer] and data has been analyzed and interpreted. [...] Orders placed. DATE: 12/24/24 TIME: 8:37 AM Alberto GarciaD Clinical Pharmacist Available via [employer] [facility] [employer] [facility] 12-24-2024 Plan of care note Problem: [...] Wise RN Outcome: Progressing 12/23/20242013 by Diana iWse RN Outcome: Progressing Problem: Chronic Conditions and Co-morbidities Goal: Patient's chronic conditions and co-morbidity symptoms are monitored and maintained or improved 12/24/2024104 by Diana Wise RN Outcome: Progressing 12/24/2024103 by Diana Wise RN Outcome: Progressing 12/23/20242013 by Diana Wise RN Outcome: Progressing T [facility] 12-24-2024 Nurse Note Call received from . Patient has bed waiting at [facility] room [facility]. Nurse to nurse report number [phone]. Social work to arrange transportation in AM. Patient notified T [facility] 12-23-2024 Plan of care note [...] monitored and maintained or improved Outcome: Progressing [facility] 12-23-2024 Consult note Associated Order [...] hip and hidradenitis suppurativa who presented to [facility] 12/22 from [facility] for increased drainage and malodor of L hip wound. He is awaiting transfer to [facility]. Of note, patient recently hospitalized at 12/07 - 12/17 [facility] He had a [...] for hypotension. Has been off levophed since 0506. Patient is s/p 4 L fluid bolus, [...] Resource Strain: Medium Risk (12/07/2024) Received from [facility] Overall Financial Resource Strain (CARDIA) Difficulty of Paying Living Expenses: Somewhat hard Food Insecurity: No Food Insecurity (12/07/2024) Received from [facility] Hunger Vital Sign Worried About Running Out of Food in the Last Year: Never true Ran Out of Food in the Last Year: Never true Recent Concern: Food Insecurity - Food Insecurity Present (10/11/2024) Received from [facility] Hunger Vital Sign Worried About Running Out of Food in the Last Year: Sometimes true Ran Out of Food in the Last Year: Sometimes true Transportation Needs: No Transportation Needs (12/07/2024) Received from [facility] PRAPARE - Transportation Lack of Transportation (Medical): No Lack of Transportation (Non-Medical): No Physical Activity: Not on file Stress: Not on file Social Connections: Not on file Intimate Partner Violence: Not At Risk (12/07/2024) Received from [facility] Humiliation, Afraid, Rape, and Kick questionnaire Fear of Current or Ex-Partner: No Emotionally Abused: No Physically Abused: No Sexually Abused: No Housing Stability: High Risk (12/07/2024) Received from [facility] Housing Stability Vital Sign Unable [...] Normal [] Scar/Lesion/Mass Inspection of teeth/lips/gums Dentition: [][place] Teeth []Dentures Lips/Gums: [x]Intact []Lesion Present Mucosa: [x][place] []Moist []Dry Neck: External Appearance Overall Appearance: [...] 17.3* ABGs: No results for input(s): "PHART", "EOU1ZYW", "PO2ART", "LXG5ODI", "SO2ART", "V9GUPFLF" in the last 72 hours. Lactic Acid: [...] Patient stable for GMF, awaiting transfer to [facility] Re-check lactic acid, BMP to monitor hypercalcemia Recommend continuing broad spectrum Vancomycin and Zosyn, pending wound and blood cultures Recommending continuing current pain regimen Remainder per primary service GI Prophylaxis: N/A DVT Prophylaxis: Lovenox 40 q 24hr - creatinine clearance >30 BMI Classification: Body mass index is 22.19 kg/m . normal BMI 18.5-24.9 Disposition: Stable for GMF, awaiting transfer to [facility] Cosigned by Noah Stewart DO at 12/23/2024 7:11 PM EDT Associated attestation - Noah Stewart DO - 12/23/2024 7:11 PM EDT I have personally performed a [id number]-qq-fmbr diagnostic evaluation on this patient on date of service 12/23/24. History, labs, imaging studies, and electronic medical record have been reviewed by me. This note documented by the []Critical Care Fellow [x]beam house inspector []BRITTNEY reflects my history, exam, and medical [...] other team members and physicians, excluding procedures. [facility] Phone: 12-23-2024 Consult note Associated Order (s): [...] hip and hidradenitis suppurativa who presented to [facility] 12/22 from [facility] for increased drainage and malodor of L hip wound. He is awaiting transfer to [facility]. Of note, patient recently hospitalized at 12/07 - 12/17 and was discharged to [facility] on Augmentin through 01/12. He had a [...] Resource Strain: Medium Risk (12/07/2024) Received from [facility] Overall Financial Resource Strain (CARDIA) Difficulty of Paying Living Expenses: Somewhat hard Food Insecurity: No Food Insecurity (12/07/2024) Received from [facility] Hunger Vital Sign Worried About Running Out of Food in the Last Year: Never true Ran Out of Food in the Last Year: Never true Recent Concern: Food Insecurity - Food Insecurity Present (10/11/2024) Received from [facility] Hunger Vital Sign Worried About Running Out of Food in the Last Year: Sometimes true Ran Out of Food in the Last Year: Sometimes true Transportation Needs: No Transportation Needs (12/07/2024) Received from [facility] PRAPARE - Transportation Lack of Transportation (Medical): No Lack of Transportation (Non-Medical): No Physical Activity: Not on file Stress: Not on file Social Connections: Not on file Intimate Partner Violence: Not At Risk (12/07/2024) Received from [facility] Humiliation, Afraid, Rape, and Kick questionnaire Fear of Current or Ex-Partner: No Emotionally Abused: No Physically Abused: No Sexually Abused: No Housing Stability: High Risk (12/07/2024) Received from [facility] Housing Stability Vital Sign Unable [...] Normal [] Scar/Lesion/Mass Inspection of teeth/lips/gums Dentition: [][place] Teeth []Dentures Lips/Gums: [x]Intact []Lesion Present Mucosa: [x][place] []Moist []Dry Neck: External Appearance Overall Appearance: [...] 17.3* ABGs: No results for input(s): "PHART", "TZT7FRZ", "PO2ART", "VSF6EPV", "SO2ART", "H2TSOQNL" in the last 72 hours. Lactic Acid: [...] Patient stable for GMF, awaiting transfer to [facility] Re-check lactic acid, BMP to monitor hypercalcemia Recommend continuing broad spectrum Vancomycin and Zosyn, pending wound and blood cultures Recommending continuing current pain regimen Remainder per primary service GI Prophylaxis: N/A DVT Prophylaxis: Lovenox 40 q 24hr - creatinine clearance >30 BMI Classification: Body mass index is 22.19 kg/m . normal BMI 18.5-24.9 Disposition: Stable for GMF, awaiting transfer to [facility] Cosigned by Noah Stewart DO at 12/23/2024 7:11 PM EDT Associated attestation - Noah Stewart DO - 12/23/2024 7:11 PM EDT I have personally performed a zrpl-sp-zuzx diagnostic evaluation on this patient on date of service 12/23/24. History, labs, imaging studies, and electronic medical record have been reviewed by me. This note documented by the []Critical Care Fellow [x]beam house inspector []BRITTNEY reflects my history, exam, and medical [...] physicians, excluding procedures. documented in this encounter [facility] 12-23-2024 Emergency department Note RN informed patient admitting team of patient b/p . Pt on the monitor. Pt declined feeling dizzy or nauseous. Pt want pants, RN is looking for pants [facility] 12-23-2024 Emergency department Note RN [...] Infection Pt arrives by life care from [facility] [place], [facility] life care pt has had wound infection [...] his facility about a week ago from [facility] as he has SCC treating with [...] typical urinary output. 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 All images taken were transmitted and stored on a secure [employer] located within a Media Folder Tab by a registered [employer] Application Device. See "Media" tab in Epic [...] HENT: Head: Normocephalic and atraumatic. Mouth/Throat: Lips: [place]. Mouth: Mucous membranes are moist. Cardiovascular: Rate [...] Procedure Abnormality Status --------- ------ Culture, Aerobic Bacteri...[[id number]] In process Anaerobic culture[[id number]] In process Please view results for these tests on the individual orders. CULTURE, AEROBIC BACTERIA WITH GRAM STAIN CULTURE ANAEROBIC COMPLETE URINALYSIS WITH REFLEX TO CULTURE Narrative: The following orders were created for panel order Urinalysis Complete with reflex to Culture. Procedure Abnormality Status --------- ------ Complete Urinalysis[[id number]] Normal Final result Please view results for these tests on the individual orders. Encounter Date: 12/06/24 ECG 12 lead Result Value Heart Rate 58 QRSD Interval 94 QT Interval 397 QTC Interval 390 P [place] 44 QRS [place] 55 T Wave [place] 56 DC Interval 142 Impression Sinus bradycardia Electronically Signed On 12-06-2024 11:47:13 EDT by Fer Hollins ED Course & MDM Medical Decision Making Presents to the emergency department for a worsening malodorous wound to his left hip that was recently treated at [facility]. He is failing outpatient antibiotic therapy of [...] by Dr. Mcfarlane for the MICU at [facility] [MJ] ED Course User Index [MJ] Levi Mack DO [NA] Ronna Leon, PERFORATOR - SHAREPOINT SPECIALIST Diagnoses as of 12/22/241822 Sepsis, due to [...] made to ensure accuracy; however, inadvertent computerized sports medicine physician errors may be present.* TRAVIS Verudzco 12/22/24 Ronna Leon APRN - NEHAL 12/22/24 1759 Cosigned by Levi Mack DO at 12/22/2024 6:43 PM EDT Emergency Department Encounter [facility] EMERGENCY DEPT Patient: Kevan La : [...] toward the left greater trochanter. He is usp had reported that he is currently on chemotherapy. He was hospitalized recently due to concerns of an abscess and had this managed by general surgery at [facility]. He receives most of his care for hidradenitis suppurativa at and is requesting to be transferred given that they are familiar with his care. Believe this is appropriate due to patient will require further evaluation by the surgery and primary team taking care of his chronic wound. We will continue IV antibiotics and IV pressors and transfer patient [place] [facility] [place]. Diagnostics interpreted by me: I personally discussed the patient's management with other clinicians: Critical Care note: This patient was unstable and required constant supervision by me for 35 minutes during their visit. The patient's condition requiring intervention included: sepsis evaluation, multiple reassessments, vasopressors. This critical care time did not include time for procedures or time spent by the physicians preschool assistant principal if they were caring for this patient. [...] dictating provider for clarification.) Levi Mack DO [facility] Levi Mack DO 12/22/24 7986 Levi Mack DO 12/22/24 3836 Pt signed out to me by Dr. Mack. Pt is awaiting transfer to for septic shock in setting of left buttock wound. Mani Dc DO 12/23/24 0115 I received this patient in signout who has been awaiting transfer to [facility] for septic shock in the setting of a left buttock wound requiring Levophed. I reviewed his labs and his medications and unfortunately has not been dosed with Zosyn since 1 PM. I reordered that and also timed for every 6 hours. He has been boarding in our emergency department for 16 hours now. We reached out to [facility] and they stated that there would [...] fluid responsive. I reached back out to [facility] to get him accepted to a regular nursing floor. I spoke with Dr Benitez at [facility] who accepted the patient to the regular nursing floor but they will still not have beds until most likely later this afternoon so will plan to admit him here medically so that the can be under the supervision and care of a hospitalist. Admitted in stable condition. Mary Calvert MD 12/23/24 0629 documented in this encounter [facility] 12-23-2024 Emergency department Note Pt moved into inpatient bed. Pt on the monitor. [facility] 12-23-2024 Emergency department Note Report given to Sunni NEWTON [facility] 12-23-2024 History and physical note [...] Required levophed but is now off of. [facility] accepted him but waiting on bed until later this afternoon. He was boarded in our ED for 16hrs. Seen at bedside. Wounds are foul smelling. Pt states he was dropped off here from [facility] as it was the closest hospital. All [...] Resource Strain: Medium Risk (12/07/2024) Received from [facility] Overall Financial Resource Strain (CARDIA) Difficulty of Paying Living Expenses: Somewhat hard Food Insecurity: No Food Insecurity (12/07/2024) Received from [facility] Hunger Vital Sign Worried About Running Out of Food in the Last Year: Never true Ran Out of Food in the Last Year: Never true Recent Concern: Food Insecurity - Food Insecurity Present (10/11/2024) Received from [facility] Hunger Vital Sign Worried About Running Out of Food in the Last Year: Sometimes true Ran Out of Food in the Last Year: Sometimes true Transportation Needs: No Transportation Needs (12/07/2024) Received from [facility] PRAPARE - Transportation Lack of Transportation (Medical): No Lack of Transportation (Non-Medical): No Physical Activity: Not on file Stress: Not on file Social Connections: Not on file Intimate Partner Violence: Not At Risk (12/07/2024) Received from [facility] Humiliation, Afraid, Rape, and Kick questionnaire Fear of Current or Ex-Partner: No Emotionally Abused: No Physically Abused: No Sexually Abused: No Housing Stability: High Risk (12/07/2024) Received from [facility] Housing Stability Vital Sign Unable [...] transfer to when bed available were 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 Holding off [...] - Date - 12/23 - Location - [facility] - Pending the following - bed available [...] - DO NOT do CPR, intubation] [_] [DNR-ACETYLENE CUTTER - Comfort care only] [_] DNR form [...] Clarita Hay DO Division of Hospitalist Medicine [facility] [employer] Phone: 12-23-2024 Note Attending History an d [...] Required levophed but is now off of. [facility] accepted him but waiting on bed until later this afternoon. He was boarded in our ED for 16hrs. Seen at bedside. Wounds are foul smelling. Pt states he was dropped off here from [facility] as it was the closest hospital. All [...] Resource Strain: Medium Risk (12/07/2024) Received from [facility] Overall Financial Resource Strain (CARDIA) Difficulty of Paying Living Expenses: Somewhat hard Food Insecurity: No Food Insecurity (12/07/2024) Received from [facility] Hunger Vital Sign Worried About Running Out of Food in the Last Year: Never true Ran Out of Food in the Last Year: Never true Recent Concern: Food Insecurity - Food Insecurity Present (10/11/2024) Received from [facility] Hunger Vital Sign Worried About Running Out of Food in the Last Year: Sometimes true Ran Out of Food in the Last Year: Sometimes true Transportation Needs: No Transportation Needs (12/07/2024) Received from [facility] PRAPARE - Transportation Lack of Transportation (Medical): No Lack of Transportation (Non-Medical): No Physical Activity: Not on file Stress: Not on file Social Connections: Not on file Intimate Partner Violence: Not At Risk (12/07/2024) Received from [facility] Humiliation, Afraid, Rape, and Kick questionnaire Fear of Current or Ex-Partner: No Emotionally Abused: No Physically Abused: No Sexually Abused: No Housing Stability: High Risk (12/07/2024) Received from [facility] Housing Stability Vital Sign Unable [...] Negative for fever, (more content not included)... [facility] 12-23-2024 History and physical note Attending [...] Required levophed but is now off of. [facility] accepted him but waiting on bed until later this afternoon. He was boarded in our ED for 16hrs. Seen at bedside. Wounds are foul smelling. Pt states he was dropped off here from [facility] as it was the closest hospital. All [...] Resource Strain: Medium Risk (12/07/2024) Received from [facility] Overall Financial Resource Strain (CARDIA) Difficulty of Paying Living Expenses: Somewhat hard Food Insecurity: No Food Insecurity (12/07/2024) Received from [facility] Hunger Vital Sign Worried About Running Out of Food in the Last Year: Never true Ran Out of Food in the Last Year: Never true Recent Concern: Food Insecurity - Food Insecurity Present (10/11/2024) Received from [facility] Hunger Vital Sign Worried About Running Out of Food in the Last Year: Sometimes true Ran Out of Food in the Last Year: Sometimes true Transportation Needs: No Transportation Needs (12/07/2024) Received from [facility] PRAPARE - Transportation Lack of Transportation (Medical): No Lack of Transportation (Non-Medical): No Physical Activity: Not on file Stress: Not on file Social Connections: Not on file Intimate Partner Violence: Not At Risk (12/07/2024) Received from [facility] Humiliation, Afraid, Rape, and Kick questionnaire Fear of Current or Ex-Partner: No Emotionally Abused: No Physically Abused: No Sexually Abused: No Housing Stability: High Risk (12/07/2024) Received from [facility] Housing Stability Vital Sign Unable [...] transfer to when bed available were 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 Holding off [...] - Date - 12/23 - Location - [facility] - Pending the following - bed available [...] - DO NOT do CPR, intubation] [_] [DNR-ACETYLENE CUTTER - Comfort care only] [_] DNR form [...] Clarita Hay DO Division of Hospitalist Medicine [facility] documented in this encounter [facility] 12-23-2024 Emergency department Note Received report from Parish NEWTON [facility] 12-23-2024 Emergency department Note Levo drip turned off. BP 102/64. [facility] 12-22-2024 Emergency department Note Levo titrated to 2mcg/min. Patient BP remains stable. [facility] 12-22-2024 Emergency department Note Levo titrated to 4mcg/min. BP remains stable. Patient asymptomatic. [facility] 12-22-2024 Emergency department Note Levo titrated to 6mcg/min. BP remains stable. Patient asymptomatic. [facility] 12-22-2024 Emergency department Note Report given to Parish NEWTON [facility] 12-22-2024 Emergency department Note Dressing change completed with ABD pads, 2x2s and tape. Pt repostioned and saturated chucks removed [facility] 12-22-2024 Emergency department Note Messaged pharmacy regarding missing vancomycin dose [facility] 12-22-2024 Emergency department Note Report given to Mary NEWTON for lunch coverage [facility] 12-22-2024 Physician Emergency department Note Images from the original note were not included. HPI Chief Complaint Patient presents with Wound Infection Pt arrives by [facility] in [place] [facility] pt has had wound infection since September, [...] his facility about a week ago from [facility] as he has SCC treating with [...] typical urinary output. 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 All images taken were transmitted and stored on a secure [employer] located within a Media Folder Tab by a registered Zendrive Application Device. See "Media" tab in [employer] or photo as below. Kofi Coma Scale [...] HENT: Head: Normocephalic and atraumatic. Mouth/Throat: Lips: [place]. Mouth: Mucous membranes are moist. Cardiovascular: Rate [...] Procedure Abnormality Status --------- ------ Culture, Aerobic Bacteri...[[id number]] In process Anaerobic culture[[id number]] In process Please view results for these tests on the individual orders. CULTURE, AEROBIC BACTERIA WITH GRAM STAIN CULTURE ANAEROBIC COMPLETE URINALYSIS WITH REFLEX TO CULTURE Narrative: The following orders were created for panel order Urinalysis Complete with reflex to Culture. Procedure Abnormality Status --------- ------ Complete Urinalysis[[id number]] Normal Final result Please view results for these tests on the individual orders. Encounter Date: 12/06/24 ECG 12 lead Result Value Heart Rate 58 QRSD Interval 94 QT Interval 397 QTC Interval 390 P [place] 44 QRS [place] 55 T Wave [place] 56 DC Interval 142 Impression Sinus bradycardia Electronically Signed On 12-06-2024 11:47:13 EDT by Fer Hollins ED Course & MDM Medical Decision Making Presents to the emergency department for a worsening malodorous wound to his left hip that was recently treated at [facility]. He is failing outpatient antibiotic therapy of [...] patient upon stabilization of blood pressure. [NA] [address] Mcfarlane for the MICU at [facility] [MJ] ED Course User Index [MJ] [...] made to ensure accuracy; however, inadvertent computerized sports medicine physician errors may be present.* TRAVIS Verduzco 12/22/24 RANDALL Verduzco CNP 12/22/24 4955 Cosigned by Levi Mack DO at 12/22/2024 6:43 PM EDT [facility] 12-22-2024 Physician Emergency department Note [...] toward the left greater trochanter. He is usp had reported that he is currently on chemotherapy. He was hospitalized recently due to concerns of an abscess and had this managed by general surgery at [facility]. He receives most of his care for hidradenitis suppurativa at and is requesting to be transferred given that they are familiar with his care. Believe this is appropriate due to patient will require further evaluation by the surgery and primary team taking care of his chronic wound. We will continue IV antibiotics and IV pressors and [place] [facility] [place]. Diagnostics interpreted by me: I personally discussed the patient's management with other clinicians: Critical Care note: This patient was unstable and required constant supervision by me for 35 minutes during their visit. The patient's condition requiring intervention included: sepsis evaluation, multiple reassessments, vasopressors. This critical care time did not include time for procedures or time spent by the physicians preschool assistant principal if they were caring for this patient. [...] 12/22/24 1730 Levi Mack DO 12/22/24 175 [employer] Phone: 12-22-2024 Physician Emergency department Note Pt signed out to me by Dr. Mack. Pt is awaiting transfer to for septic shock in setting of left buttock wound. Mani Dc DO 12/23/24 0115 [employer] Work Phone: 12-22-2024 Physician Emergency department Note I received this patient in signout who has been awaiting transfer to [facility] for septic shock in the setting of a left buttock wound requiring Levophed. I reviewed his labs and his medications and unfortunately has not been dosed with Zosyn since 1 PM. I reordered that and also timed for every 6 hours. He has been boarding in our emergency department for 16 hours now. We reached out to [facility] and they stated that there would [...] fluid responsive. I reached back out to [facility] to get him accepted to a regular nursing floor. I spoke with Dr Benitez at [facility] who accepted the patient to the regular nursing floor but they will still not have beds until most likely later this afternoon so will plan to admit him here medically so that the can be under the supervision and care of a hospitalist. Admitted in stable condition. Mary Calvert MD 12/23/24 0629 [employer] 12-22-2024 Progress note Formatting of t his note might be different from the original. Culture reviewed. Awaiting sensitivity results [employer] Work Phone: 12-20-2024 History of Present illness [...] clinical picture. Sreedhar Jiang MD Attending Physician [facility] [employer] sawyer [employer] [employer] documented in this encounter [facility] Work Phone: 12-19-2024 History of Present illness Narrative 12/09/24 1000 Discharge Planning Living Arrangements Other (Comment);Alone ([facility]) Support Systems Family members;Other (Comment) (SNF staff, SNF SW) Assistance Needed skilled, PT/OT Type of Residence long-term facility Do you have animals or pets at home? No Home or Post Acute Services Post acute facilities (Rehab/SNF/etc) (return to [facility]) Type of Post Acute Facility Services long-term Expected Discharge Disposition SNF Does the patient need discharge transport arranged? Yes RoundTrip coordination needed? Yes Has discharge transport been arranged? No Patient Choice Provider Choice list and [facility] website (https://medicare.gov/care-compar e#search) for post-acute Quality and Resource Measure Data were provided and reviewed with: Patient Patient / Family choosing to utilize agency / facility established prior to hospitalization Yes SW met with pt to introduce role and discuss discharge planning. Pt admitted from [facility]; pt reports that he's been there on and off since September. Pt confirmed demographic and insurance details. SW contact details written on the whiteboard in pt room. Return referral sent to [facility]. SW will follow. Fre Hidalgo [facility] 12/09/2024 1040 Per [facility] gareth Malik, pt's current auth expires on 12/11. Further discharge planning pending updates from the care team. SW will follow. Fer Hidalgo [facility] 12/11/2024 1030 Pt auth for [facility] gareth Malik expires today. Clinical updates sent to facility. Further discharge planning pending updates from the care team. SW will follow. Fer Hidalgo [facility] 12/16/2024 0955 Once PT and OT see pt for updated notes, [facility] gareth Malik will initiate precert. SW will follow. Fer Hidalgo [facility] 12/17/2024 1030 PT and OT saw pt this morning. Clinicals and therapy notes sent to facility. Facility was notified to initiate precert for pt to return. Care team notified SW that pt reported [facility] SW met with pt to check in and he reports that he has been telling everyone for days that he would prefer not to return to [facility]. SW offered to give pt a SNF [...] for discharge. SW will follow. Fer Hidalgo [facility] 12/17/2024 1120 Per facility: "Auth Submitted - Pending Reference # [id number]" Liaison is confirming that there are no barriers to providing transport for pt's oncology appt on Monday. SW will follow. Fer Strangee Gwen [facility] 12/18/2024 1245 [facility] reports that pt insurance is asking for PT note and a wound care note. SW let the facility note that yesterday's PT note was sent to them yesterday and that a request would be put in for a new wound care note. SW will follow. Fer Hidalgo [facility] 12/18/2024 1540 Wound care note sent to facility via [employer]. SW will follow. Fer Hidalgo [facility] 12/19/2024 0920 Per facility: "Auth has been approved - [id number] - 4.3.25 to 12.30.2024" Care team notified. SW met with pt and let him know that he will discharge today. Transport requested in RoundTrip for 1100. SW asked facility to confirm that his transport for his oncology appt is set up. SW will follow. Fer Hidalgo [facility] 12/19/2024 1000 Transport confirmed for 1300 with [facility]. Care team, pt, and facility notified. Once received, number for report will be sent to bedside nurse. Pt requested to speak to a member of the care team; care team notified. SW will follow. Fer Hidalgo [facility] 12/19/2024 1015 Number for report is [phone] and was sent to bedside nurse. SW will follow. Fer Hidalgo [facility] Kevan La is a 49 y.o. male [...] medications to patient prior to discharge via [facility] pharmacy. Prescriptions will need to be sent 48-72 hours prior to discharge so that a prior authorization can be completed. Discharge date: unknown pending acute issues Patient has an appointment with Outpatient [facility] TRAVIS Talavera 12/30/24 SIGNATURE: TRAVIS Rodas PAGER/CONTACT: Contact information: [facility] Monday-Monday 8 AM-5 PM Nellix chat or pager [phone]. After hours and weekends: pager [phone] SUBJECTIVE: Interval Events: Pt reports pain is [...] UNK primary Family: Supportive though live in [place] Performance status: Moderate limitations due to pain Joys/meaning/strength: Family and [place] Understanding of health: 12/08: Demonstrates good prognostic [...] Surrogate decision maker is brother Omkar La [phone] Signature and billing: Medical complexity was high [...] of shared electronic medical record/secure chat/email or [id number]. We will continue to follow Please contact us for additional questions or concerns. SIGNATURE: TRAVIS Rodas PAGER/CONTACT: Contact information: [facility] Monday-Monday 8 AM-5 PM Epic Secure chat or pager [phone]. After hours and weekends: pager [phone] 12/09/24 1000 Discharge Planning Living Arrangements Other (Comment);Alone (admitted from [facility]) Support Systems Family members;Other (Comment) (SNF staff, SNF SW) Assistance Needed skilled, PT/OT Type of Residence long-term facility Do you have animals or pets at home? No Home or Post Acute Services Post acute facilities (Rehab/SNF/etc) (return to [facility]) Type of Post Acute Facility Services long-term [...] and discuss discharge planning. Pt admitted from [facility]; pt reports that he's been there on and off since September. Pt confirmed demographic and insurance details. SW contact details written on the whiteboard in pt room. Return referral sent to [facility]. SW will follow. Fer Hidalgo [facility] 12/09/2024 1040 Per [facility], pt's current auth expires on 12/11. Further discharge planning pending updates from the care team. SW will follow. Fer Hidalgo [facility] 12/11/2024 1030 Pt auth for [facility] expires today. Clinical updates sent to facility. Further discharge planning pending updates from the care team. SW will follow. Fer Hidalgo [facility] 12/16/2024 0955 Once PT and OT see pt for updated notes, [facility] will initiate precert. SW will follow. Fer Hidalgo [facility] 12/17/2024 1030 PT and OT saw pt this morning. Clinicals and therapy notes sent to facility. Facility was notified to initiate precert for pt to return. Care team notified SW that pt reported [facility] SW met with pt to check in and he reports that he has been telling everyone for days that he would prefer not to return to [facility]. SW offered to give pt a SNF [...] for discharge. SW will follow. Fer Hidalgo [facility] 12/17/2024 1120 Per facility: "Auth Submitted - Pending Reference # [id number]" Liaison is confirming that there are no barriers to providing transport for pt's oncology appt on Monday. SW will follow. Fer Hidalgo [facility] 12/18/2024 1245 [facility] reports that pt insurance is asking for PT note and a wound care note. SW let the facility note that yesterday's PT note was sent to them yesterday and that a request would be put in for a new wound care note. SW will follow. Fer Hidalgo [facility] 12/18/2024 1540 Wound care note sent to facility via [employer]. SW will follow. Fer Hidalgo [facility] Images from the original note were not [...] Signs/Symptoms:r/o any dysphagia. COMPARISON: None. ACCESSION NUMBER(S): [id number] ORDERING CLINICIAN: GIBSON MENDIOLA TECHNIQUE: MBSS completed. Informed verbal consent obtained prior to completion of exam. Trials of thin, nectar thick, puree, and regular solids given. Fluoroscopy time : 1.8 minutes. Total of 2800 images were provided for review. 100 mL barium contrast. CLINICAL LEADER: Makayla Dunham Phone/Pager: Secure Chat SPEECH FINDINGS: Patient Name: Kevan La : 1975 Today's Date: 12/16/24 Start Time: 845 Stop Time: 915 Time Calculation (min): 30 min Modified Barium Swallow Study completed. Informed verbal consent obtained prior to completion of exam. Trials of thin liquid, mildly thick liquid, puree, and solids were given. CLINICAL LEADER: MINDY Camp Contact info: Maira davidson Reason for Referral: C/f aspiration/oropharyngeal dysphagia Patient Hx: Kevan La is a 49 y.o. 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 CLINICAL LEADER Frequency: 2x per week Duration: 1-2 weeks [...] given on all accounts. Treatment Provided Today: CLINICAL LEADER provided extensive education and training to pt/pt [...] further evaluation by medical specialists, as applicable. CLINICAL LEADER Impressions with Severity Rating: Pt presenting with [...] obtained, suspect within normal limits for clearance CLINICAL LEADER recommends cautious initiation of thin liquids and easy to chew diet. See additional PO intake guidelines outlined below. If pt demonstrates any change/decline in medical/mental/respiratory status please make NPO and alert CLINICAL LEADER. Will continue to follow while in acute care setting to ensure diet tolerance and use of safe swallow guidelines. aware of recommendations [place]'s Penetration Aspiration Scale Thin Liquids: 3. PENETRATION with LOW ASPIRATION risk - contrast remains above vocal cords, visible residue [place] Thick Liquids: 3. PENETRATION with LOW [...] Dilan Hester. This study was interpreted at [facility], [place], [place]. MACRO: None Signed by: Jayson Abdi 12/16/2024 4:54 PM Dictation workstation: [id number] Oncology Hx Diagnosis: Squamous cell carcinoma of [...] their tolerance level. Patient agreed to advise lunchroom mother. The lunchroom mother counseled the patient on the risks of [...] Signs/Symptoms:r/o any dysphagia. COMPARISON: None. ACCESSION NUMBER(S): [id number] ORDERING CLINICIAN: GIBSON MENDIOLA TECHNIQUE: MBSS completed. Informed verbal consent obtained prior to completion of exam. Trials of thin, nectar thick, puree, and regular solids given. Fluoroscopy time : 1.8 minutes. Total of 2800 images were provided for review. 100 mL barium contrast. CLINICAL LEADER: Makayla Dunham Phone/Pager: [employer] SPEECH FINDINGS: Patient Name: Kevan La : 1975 Today's Date: 12/16/24 Start Time: 845 Stop Time: 915 Time Calculation (min): 30 min Modified Barium Swallow Study completed. Informed verbal consent obtained prior to completion of exam. Trials of thin liquid, mildly thick liquid, puree, and solids were given. CLINICAL LEADER: MINDY Camp Contact info: [employer] Reason for Referral: C/f aspiration/oropharyngeal dysphagia Patient Hx: Kevan La is a 49 y.o. 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 CLINICAL LEADER Frequency: 2x per week Duration: 1-2 weeks [...] given on all accounts. Treatment Provided Today: CLINICAL LEADER provided extensive education and training to pt/pt [...] further evaluation by medical specialists, as applicable. CLINICAL LEADER Impressions with Severity Rating: Pt presenting with [...] obtained, suspect within normal limits for clearance CLINICAL LEADER recommends cautious initiation of thin liquids and easy to chew diet. See additional PO intake guidelines outlined below. If pt demonstrates any change/decline in medical/mental/respiratory status please make NPO and alert CLINICAL LEADER. Will continue to follow while in acute care setting to ensure diet tolerance and use of safe swallow guidelines. aware of recommendations [place]'s Penetration Aspiration Scale Thin Liquids: 3. PENETRATION with LOW ASPIRATION risk - contrast remains above vocal cords, visible residue [place] Thick Liquids: 3. PENETRATION with LOW [...] Dilan Hester. This study was interpreted at [facility], [place], [place]. MACRO: None Signed by: Jayson Abdi 12/16/2024 4:54 PM Dictation workstation: [id number] ECG 12 Lead Result Date: 12/16/2024 Normal [...] 12/06/2024 and 11/19/2024 CT examinations. ACCESSION NUMBER(S): [id number] ORDERING CLINICIAN: GIBSON MENDIOLA TECHNIQUE: Multiplanar multisequence [...] Kong Armijo 12/12/2024 1:33 PM Dictation workstation: [id number] MR femur left wo IV contrast Result Date: 12/12/2024 Interpreted By: Kong Armijo and Lawrence Austen STUDY: MRI of the left femur with and without contrast dated 12/10/2024. 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 History of chronic hidradenitis suppurativa. COMPARISON: Correlation is made with 12/06/2024 and 11/19/2024 CT examinations. ACCESSION NUMBER(S): [id number] ORDERING CLINICIAN: TOYA RUBIO TECHNIQUE: Multiplanar multisequence MRI of the left femur was performed with and without intravenous gadolinium based contrast. FINDINGS: No images were obtained as the patient was unable to cooperate for the exam. No images were obtained as the patient was unable to cooperate for the exam. MACRO: None Signed by: Kong Armijo 12/12/2024 1:18 PM Dictation workstation: [id number] CT pelvis w IV contrast Result Date: [...] carcinoma. COMPARISON: CT pelvis 11/08/2024. ACCESSION NUMBER(S): [id number] ORDERING CLINICIAN: CLAUDIO PLUNKETT TECHNIQUE: CT of the chest, abdomen, and pelvis was performed. Contiguous axial images were obtained at 3 mm slice thickness through the chest, abdomen and pelvis. Coronal and sagittal reconstructions at 3 mm slice thickness were performed. 90 ML of Omnipaque 350 was administered intravenously without immediate complication. FINDINGS: CHEST: LUNG/PLEURA/LARGE AIRWAYS: [id number] upper lobe predominant centrilobular and paraseptal emphysema. [...] Attention on follow-up examinations is recommended. 5. Axvc-amobeeq-pcrf-right skin thickening extending from the sacral region to the proximal thigh, in keeping with patient's background of hydradenitis suppurativa. 6. Ukhd-dh-ufwnbhld upper lobe predominant centrilobular and paraseptal emphysema. I personally reviewed the images/study and I agree with the findings as stated by Elenita Munroe MD (PGY-2). This study was interpreted at [facility], [place], [place]. MACRO: None Signed by: Ravin Hyatt 11/19/2024 4:54 PM Dictation workstation: [id number] Assessment/Plan Assessment & Plan Gluteal abscess [facility] Symptom Management program offers multi-disciplinary [...] (available on ). Music therapy, art therapy, nurse charge rn and pet therapy offered to pt, pt declined; pt stated the special programs director has been following. Left gluteal pain: pain related to malignancy, lesions Pain is well-controlled Defer to supportive oncology team for adequate PO/IV pain regimen Recommend integrative therapy modalities as pt allows: -Acupuncture; provided pt education today. Pt declined services, requesting follow up when next available -Acupressure, gua sha -Gentle bodywork and stretching as tolerated -Art therapy -Music therapy -Manager Cafe -Pet therapy Altered Mood: Anxiety and/or depression r/t health concerns History of anxiety/depression -Recommend integrative medicine modalities as listed above Mindfulness Brittney: AMDtx, Calm, Headspace, Insight Timer Guided Imagery Meditation (15 min in the morning) - consider mindfulness (Mindfulness based Stress Reduction) Apps such as CALM or Headspace Deep breathing: Alternate nostril breathing and Deep abdominal breathing (5 min) in the morning [facility] - Guided Meditation Thank you for allowing us to participate in the care of this patient. Integrative Medicine Team will continue to follow as needed. Please contact team with any questions or concerns. TRAVIS Patel (available by [employer]) [facility] Inpatient Integrative Medicine I spent 45 minutes in the care of this patient which included chart review, interviewing patient/family, discussion with primary team, coordination of care, and documentation. Medical Decision Making was high level due to high complexity of problems, extensive data review, and high risk of management/treatment. 12/09/24 1000 Discharge Planning Living Arrangements Other (Comment);Alone (admitted from [facility]) Support Systems Family members;Other (Comment) (SNF staff, SNF SW) Assistance Needed skilled, PT/OT Type of Residence long-term facility Do you have animals or pets at home? No Home or Post Acute Services Post acute facilities (Rehab/SNF/etc) (return to [facility]) Type of Post Acute Facility Services long-term [...] and discuss discharge planning. Pt admitted from [facility]; pt reports that he's been there on and off since September. Pt confirmed demographic and insurance details. SW contact details written on the whiteboard in pt room. Return referral sent to [facility]. SW will follow. Fer Hidalgo [facility] 12/09/2024 1040 Per SN[facility], pt's current auth expires on 12/11. Further discharge planning pending updates from the care team. SW will follow. Fer Hidalgo [facility] 12/11/2024 1030 Pt auth for [facility] expires today. Clinical updates sent to facility. Further discharge planning pending updates from the care team. SW will follow. Fer Hidalgo [facility] 12/16/2024 0955 Once PT and OT see pt for updated notes, [facility] will initiate precert. SW will follow. Fer Hidalgo [facility] 12/17/2024 1030 PT and OT saw pt this morning. Clinicals and therapy notes sent to facility. Facility was notified to initiate precert for pt to return. Care team notified SW that [facility] reported [facility] SANTO met with pt to check in and he reports that he has been telling everyone for days that he would prefer not to return to SN[facility]. SW offered to give pt a SNF [...] for discharge. SW will follow. Fer Hidalgo [facility] 12/17/2024 1120 Per facility: "Auth Submitted - Pending Reference # [id number]" Liaison is confirming that there are no barriers to providing transport for pt's oncology appt on Monday. SW will follow. Fer Hidalgo [facility] Physical Therapy Treatment Patient Name: Kevan La Today's Date: 12/17/2024 Room: [address] [place], [place] [address]-A Time Calculation Start Time: 0939 Stop Time: 1002 Time Calculation (min): 23 [...] Decreased tolerance for upright activites Outcome Measures: [facility] Basic Mobility Turning from your back to [...] Kevan La : 1975 Date: 12/17/24 Room: [address] [place] [address] Time Calculation Start Time: 0851 Stop Time: 09 Time Calculation (min): 11 [...] Comments: BUE WFL via ADLs Outcome Measures: [facility] Daily Activity Putting on and taking off [...] Expected End: 01/03/25 12/17/24 at 10:18 AM DANY Cortés/Kamila [phone] Images from the original note were not [...] Signs/Symptoms:r/o any dysphagia. COMPARISON: None. ACCESSION NUMBER(S): [id number] ORDERING CLINICIAN: GIBSON MENDIOLA TECHNIQUE: MBSS completed. Informed verbal consent obtained prior to completion of exam. Trials of thin, nectar thick, puree, and regular solids given. Fluoroscopy time : 1.8 minutes. Total of 2800 images were provided for review. 100 mL barium contrast. CLINICAL LEADER: Makayla Dunham Phone/Pager: [email or web address] Chat SPEECH FINDINGS: Patient Name: Kevan La : 1975 Today's Date: 12/16/24 Start Time: 845 Stop Time: 915 Time Calculation (min): 30 min Modified Barium Swallow Study completed. Informed verbal consent obtained prior to completion of exam. Trials of thin liquid, mildly thick liquid, puree, and solids were given. CLINICAL LEADER: MINDY Camp Contact info: [email or web address] Reason for Referral: C/f aspiration/oropharyngeal dysphagia Patient Hx: Kevan La is a 49 y.o. 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 CLINICAL LEADER Frequency: 2x per week Duration: 1-2 weeks [...] given on all accounts. Treatment Provided Today: CLINICAL LEADER provided extensive education and training to pt/pt [...] further evaluation by medical specialists, as applicable. CLINICAL LEADER Impressions with Severity Rating: Pt presenting with [...] obtained, suspect within normal limits for clearance CLINICAL LEADER recommends cautious initiation of thin liquids and easy to chew diet. See additional PO intake guidelines outlined below. If pt demonstrates any change/decline in medical/mental/respiratory status please make NPO and alert CLINICAL LEADER. Will continue to follow while in acute care setting to ensure diet tolerance and use of safe swallow guidelines. MD aware of recommendations [place]'s Penetration Aspiration Scale Thin Liquids: 3. PENETRATION with LOW ASPIRATION risk - contrast remains above vocal cords, visible residue [place] Thick Liquids: 3. PENETRATION with LOW [...] Dilan Hester. This study was interpreted at [facility], [place], [place]. MACRO: None Signed by: Jayson Abdi 12/16/2024 4:54 PM Dictation workstation: [id number] Oncology Hx Diagnosis: Squamous cell carcinoma of [...] Communication Note Patient Name: Kevan La Department: [facility] Room: [address] [place] [address] Today's Date: 12/16/2024 Discipline: Physical Therapy PT Missed Visit: Yes Missed Visit Reason: Missed Visit Reason: Patient sleeping (attempted twice and pt sleeping . would not wake up to name . Will reattempt as schedule permits.) Missed Time: Attempt Comment: Occupational Therapy Therapy Communication Note Patient Name: Kevan La Department: [facility] Room: [address] [place] [address] Today's Date: 12/16/2024 Discipline: Occupational Therapy OT Missed Visit: Yes Missed Visit Reason: Patient sleeping (Attempt 2x this AM; pt in sound sleep/declines OT this AM; will reattempt as schedule permits) Missed Time: Attempt Janny Andres (OTR/L, OTD) Inpatient Occupational Therapist Rehab Office: [phone] 03/24/25 1000 Discharge Planning Living Arrangements Other (Comment);Alone (admitted from [facility]) Support Systems Family members;Other (Comment) (SNF staff, SNF SW) Assistance Needed skilled, PT/OT Type of Residence long-term facility Do you have animals or pets at home? No Home or Post Acute Services Post acute facilities (Rehab/SNF/etc) (return to [facility]) Type of Post Acute Facility Services long-term Expected Discharge Disposition SNF Does the patient need discharge transport arranged? Yes RoundTrip coordination needed? Yes Has discharge transport been arranged? No Patient Choice Provider Choice list and [facility] website (https://medicare.gov/care-compar e#search) for post-acute Quality and Resource Measure Data were provided and reviewed with: Patient Patient / Family choosing to utilize agency / facility established prior to hospitalization Yes SW met with pt to introduce role and discuss discharge planning. [facility]; pt reports that he's been there on and off since September. Pt confirmed demographic and insurance details. SW contact details written on the whiteboard in pt room. Return referral sent to [facility]. SW will follow. Fer Hidalgo [facility] 12/09/2024 1040 [facility], pt's current auth expires on 12/11. Further discharge planning pending updates from the care team. SW will follow. Fer Hidalgo [facility] 12/11/2024 1030 Pt auth for [facility] expires today. Clinical updates sent to facility. Further discharge planning pending updates from the care team. SW will follow. Fer Hidalgo [facility] 12/16/2024 0955 Once PT and OT see pt for updated notes, [facility] will initiate precert. SW will follow. Fer Hidalgo [facility] SUPPORTIVE AND PALLIATIVE ONCOLOGY INPATIENT FOLLOW-UP SERVICE DATE: 12/16/24 Updates and Recommendations (12/16/24): Change gabapentin 300mg PO BID Continue scheduled methadone 10mg r0x--ewaxove 12/12/24, eligible for increase 12/17/24 Discontinue bisacodyl [...] 2mg PO TID Continue scheduled methadone 10mg z3h--fpoicik 12/12/24, eligible for increase 12/17/24 Continue oxycodone [...] medications to patient prior to discharge via [facility] pharmacy. Prescriptions will need to be sent 48-72 hours prior to discharge so that a prior authorization can be completed. Discharge date pending resolution of acute hospital issues. Patient has an appointment with outpatient Supportive Oncology with Astrid Hawley CNP, on 12/30/24. SIGNATURE: TRAVIS Huizar PAGER/CONTACT: Contact information: Supportive and Palliative Oncology Monday-Monday 8 AM-5 PM [employer] chat or pager [phone]. After hours and weekends: pager [phone] == SUBJECTIVE: Pain Assessment: Location: Left gluteus, LLE Duration: Constant Characteristics: Ratin/10, "it's alright" Descriptors: Throbbing, sharp, and burning Aggravating: Movement, pressure Relieving: Analgesics, positioning, and modifying activity Interference with Function: Somewhat Opioid Requirements Past 24h opioid requirements: (12/15-12/16, 2985-7590) methadone 10mg x 3 = 30mg oxycodone [...] of Care/Advance Care Planning: (Per Emile Segovia, SHAREPOINT SPECIALIST's, note on 12/08/24) Patient's current clinical condition, including diagnosis, prognosis, and management plan, and goals of care were discussed. Life limiting disease: SCC of UNK primary Family: Supportive though live in [place] Performance status: Moderate limitations due to pain Joys/meaning/strength: Family and [place] Understanding of health: Demonstrates good prognostic understanding [...] Decision maker: Surrogate decision maker is brotherOmkar ([phone]) == Signature and billing: Medical complexity was [...] of shared electronic medical record/secure chat/email or [id number]. We will continue to follow. Please contact us for additional questions or concerns. SIGNATURE: TRAVIS Huizar PAGER/CONTACT: Contact information: [facility]ive [facility] Palliative Oncology Monday-Monday 8 AM-5 PM, [employer] Secure chat or pager [phone]. After hours and weekends: pager [phone] Images from the original note were not [...] days course) - MBS complete, no concerns. CLINICAL LEADER recommends thin and easy to chew - [...] affecting the LLE who was transferred to [facility] due to concerns for worsening infection in [...] region. No s/s of aspiration at bedside. CLINICAL LEADER recommends thin liquid and easy to chew [...] 01/15/25 Status: Goal Initiated this date Plan: CLINICAL LEADER Services Indicated: Yes Frequency: 2x week Discussed POC with patient CLINICAL LEADER - OK to Discharge Pain: 0-10 0 [...] 12/06/2024 and 11/19/2024 CT examinations. ACCESSION NUMBER(S): [id number] ORDERING CLINICIAN: GIBSON MENDIOLA TECHNIQUE: Multiplanar multisequence [...] Kong Armijo 12/12/2024 1:33 PM Dictation workstation: [id number] Oncology Hx Diagnosis: Squamous cell carcinoma of [...] weeks ago s/p I&D, BCx with shanthicynthiatatianna oliveiramohinderjulisa s/p Unasyn complete 10/28/2024 ::CT 12/06: Large [...] completed. No surgery planned. They will follow hi as outpatient. Continue ceftriaxone 2 gm IV daily with 500mg metronidazole po tid (For odor). Appreciate ID rec, especially to plan for Abx regimen before discharge. Gibson Mendiola MD, PhD Hematology/Oncology Occupational Therapy OT Treatment Patient Name: Kevan La Department: [facility] Room: [address] [place] [address] Today's Date: 12/13/2024 Time Calculation Start Time: [...] of Assistance 2: Contact guard Outcome Measures: [facility] Daily Activity Putting on and taking off [...] (OTR/L, OTD) Inpatient Occupational Therapist Rehab Office: [phone] Images from the original note were not [...] 12/06/2024 and 11/19/2024 CT examinations. ACCESSION NUMBER(S): [id number] ORDERING CLINICIAN: GIBSON MENDIOLA TECHNIQUE: Multiplanar multisequence [...] Kong Armijo 12/12/2024 1:33 PM Dictation workstation: [id number] Oncology Hx Diagnosis: Squamous cell carcinoma of [...] bit brighter,today . Eating lunch and playing Remicalme Hip lesion unchanged Antibiotics amoxicillin-pot clavulanate - [...] medications to patient prior to discharge via [facility] pharmacy. Prescriptions will need to be sent 48-72 hours prior to discharge so that a prior authorization can be completed. Discharge date: unknown pending acute issues Patient has an appointment with Outpatient Supportive Oncology TRAVIS Talavera 12/17/24 SIGNATURE: TRAVIS Rodas PAGER/CONTACT: Contact information: Supportive and Palliative Oncology Monday-Monday 8 AM-5 PM [employer] or pager [phone]. After hours and weekends: pager [phone] SUBJECTIVE: Interval Events: Pt was able to [...] UNK primary Family: Supportive though live in [place] Performance status: Moderate limitations due to pain Joys/meaning/strength: Family and [place] Understanding of health: 12/08: Demonstrates good prognostic [...] Surrogate decision maker is brother Omkar La [phone] Signature and billing: Medical complexity was high [...] of shared electronic medical record/secure chat/email or [id number]. We will continue to follow Please contact us for additional questions or concerns. SIGNATURE: Lynette Segovia APRN-SHAREPOINT SPECIALIST PAGER/CONTACT: Contact information: [facility] Pall[facility] Oncology Monday-Monday 8 AM-5 PM [employer] Secure chat or pager [phone]. After hours and weekends: pager [phone] Images from the original note were not [...] 12/06/2024 and 11/19/2024 CT examinations. ACCESSION NUMBER(S): [id number] ORDERING CLINICIAN: GIBSON MENDIOLA TECHNIQUE: Multiplanar multisequence [...] Kong Armijo 12/12/2024 1:33 PM Dictation workstation: [id number] MR femur left wo IV contrast Result Date: 12/12/2024 Interpreted By: Kong Armijo and Lawrence Austen STUDY: MRI of the left femur with and without contrast dated 12/10/2024. 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 History of chronic hidradenitis suppurativa. COMPARISON: Correlation is made with 12/06/2024 and 11/19/2024 CT examinations. ACCESSION NUMBER(S): [id number] ORDERING CLINICIAN: TOYA RUBIO TECHNIQUE: Multiplanar multisequence MRI of the left femur was performed with and without intravenous gadolinium based contrast. FINDINGS: No images were obtained as the patient was unable to cooperate for the exam. No images were obtained as the patient was unable to cooperate for the exam. MACRO: None Signed by: Kong Armijo 12/12/2024 1:18 PM Dictation workstation: [id number] Oncology Hx Diagnosis: Squamous cell carcinoma of [...] discharge (no plans for IV abx at nd) #Invasive SCC # Left Gluteus lesions ::biopsy [...] MATHEW and flexed foward posture) Outcome Measures: [facility] Basic Mobility Turning from your back to [...] 2:05 PM Latricia Yousif, PT Rehab Office: [phone] Spiritual Care Visit Spiritual Care Request Spiritual Care Annotation Annotation: Forming Machine Upkeep Mechanic visited with the patient, who is known to this Forming Machine Upkeep Mechanic from prior admissions. Patient shared he was feeling very tired and not in the mood to talk. Patient requested a Bible and a follow-up visit. Forming Machine Upkeep Mechanic was able to bring a Bible for the patient. Forming Machine Upkeep Mechanic will follow-up tomorrow. Please reach out with any needs/concerns. Rev. Mack Schmitz, Supportive Oncology Forming Machine Upkeep Mechanic 12/09/24 1000 Discharge Planning Living Arrangements Other (Comment);Alone (admitted from [facility]) Support Systems Family members;Other (Comment) (SNF staff, SNF SW) Assistance Needed skilled, PT/OT Type of Residence long-term facility Do you have animals or pets at home? No Home or Post Acute Services Post acute facilities (Rehab/SNF/etc) (return to [facility]) Type of Post Acute Facility Services long-term [...] and discuss discharge planning. Pt admitted from [facility]; pt reports that he's been there on and off since September. Pt confirmed demographic and insurance details. SW contact details written on the whiteboard in pt room. Return referral sent to [facility]. SW will follow. [facility] 12/09/2024 1040 Per [facility], pt's current auth expires on 12/11. Further discharge planning pending updates from the care team. SW will follow. [facility] CORPORATE TRAFFIC MANAGER 12/11/2024 1030 Pt auth for [facility] expires today. Clinical updates sent to facility. Further discharge planning pending updates from the care team. SW will follow. Fer Hidalgo [facility] CORPORATE TRAFFIC MANAGER Kevan La is a 49 y.o. male [...] last 72 hours Lab Units 12/10/24 0612/09/24 0555 12/08/24 0602 SODIUM mmol/L 139 140 [...] Session Start Time: 1440 Session End Time: 1444 Intervention Delivery: In-person Conflict of Service: Working [...] Name: Kevan La Today's Date: 12/09/2024 Room: [address] [place] [address] Time Calculation Start Time: 1509 Stop Time: [...] and hospital stays. Prior Function: Level of [place]: Needs assistance with ADLs, Needs assistance with [...] Within Functional Limits, , and Outcome Measures: [facility] Daily Activity Putting on and taking off [...] 3:51 PM Shereen Santoyo OT Rehab Office: [phone] Physical Therapy Physical Therapy Evaluation & Treatment Patient Name: Kevan La Department: [facility] Room: [address] [place] [address]- Today's Date: 12/09/2024 Time Calculation Start Time: [...] Home Living: Home Living Type of Home: Custodial facility Home Living Comments: Pt reports he has been in hospital or SNF since Prior Level of Function: Prior Function Per Pt/Caregiver Report Level of [place]: Needs assistance with ADLs, Needs assistance with homemaking (Assist for LE dressing and bathing) Ambulatory Assistance: Needs assistance (Using FWW. 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 Outcome Measures: [facility] Basic Mobility Turning from your back to [...] Planning Living Arrangements Other (Comment);Alone (admitted from [facility]) Support Systems Family members;Other (Comment) (SNF staff, SNF SW) Assistance Needed skilled, PT/OT Type of Residence long-term facility Do you have animals or pets at home? No Home or Post Acute Services Post acute facilities (Rehab/SNF/etc) (return to [facility]) Type of Post Acute Facility Services long-term [...] and discuss discharge planning. Pt admitted from [facility]; pt reports that he's been there on and off since September. Pt confirmed demographic and insurance details. SW contact details written on the whiteboard in pt room. Return referral sent to [facility]. SW will follow. [facility] CORPORATE TRAFFIC MANAGER 12/09/2024 1040 Per [facility], pt's current auth expires on 12/11. Further discharge planning pending updates from the care team. SW will follow. [facility] CORPORATE TRAFFIC MANAGER Physical Therapy Therapy Communication Note Patient Name: Kevan La Department: [facility] Room: [address] [place] [address] Today's Date: 12/09/2024 Discipline: Physical Therapy PT [...] on board. Gibson Mendiola MD, PhD Hematology/Oncology [facility] Medication History Review Kevan La is a 49 y.o. male admitted for Gluteal abscess. Pharmacy reviewed the patient's akujo-hr-jacwfyskc medications and allergies for accuracy. Medications ADDED: None Medications CHANGED: Ibuprofen every 6 hours to every 4 hours Medications REMOVED: Vitamin D3 10,000 units The list below reflects the updated DRAMA TEACHER list. Prior to Admission Medications Prescriptions Last [...] declines M2B at discharge. Sources: SNF -- [facility] Heme/onc AVS from 11/29 Additional Comments: DRAMA TEACHER medication list updated per [facility] SNF medication list Medication flow sheet from 11/08-12/06 Please review additional comments above for additional comments Connie Choi PharmD Transitions of Care Pharmacist 12/08/24 Secure Chat preferred If no response call [phone] or Vocera "Med Rec" 12/08/24 1221 Discharge Planning Living Arrangements Other (Comment) (Currently at Detention) Support Systems Family members (Family all lives in [place], so supportive but distant) Type of Residence long-term facility Home or Post Acute Services Post acute facilities (Rehab/SNF/etc) Type of Post Acute Facility Services long-term Expected Discharge Disposition SNF Patient Choice Patient / Family choosing to utilize agency / facility established prior to hospitalization Yes Met with patient bedside, he is currently from [facility] in [place]; where he admitted Medicaid pending in 11/12; [...] which he states they all live in [place]. This appeals writer suggests as well talk to the SW/CM at the SNF and coordinating with a [facility] Assistant Shift Supervisor, that there may be local resources to [...] on 12/09/2024 Exposure target: AUC24 (range)400-600 mg/L.hr RJX01-58: 570 mg/L.hr AUC24,ss: 549 mg/L.hr Probability of [...] and invasive SCC who is returning to [facility] 12/08/2024 as a transfer from [facility] regarding gluteal fluid collection. 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 November 29 initial diagnosis December 09: To start chemotherapy with cemiplimab, 21-day cycles Previous Hospital Course Notably, the pt was admitted at [facility] 11/10-11/27 after her arrived from [facility] and CT revealed large ulcerative wound at [...] Subjective Today he presents as transfer from [facility] (where he was brought to from [facility]) with reports that his wound looks worse. [...] assessed Assessment/Plan Assessment & Plan Gluteal abscess Keavn La is a 49 y.o. male with refractory hidradenitis supprativa (HS) and invasive SCC who is returning to [facility] 11/10/2024 as a transfer from [facility] regarding gluteal wound with worsening [...] SCC of the L hip transferred to [facility] after presenting to [facility] ED with worsening pain found to have gluteal fluid collection. Unclear whether abscess vs necrosis. MRI to further evaluate. Adjust antiemetic regimen for ongoing nausea Toya Rubio MD Staff, Gastrointestinal Medical Oncology [facility] Vancomycin Dosing by Pharmacy- INITIAL Kevan La [...] hours. This dosing regimen is predicted by [employer] to result in the following pharmacokinetic parameters: Regimen: 1000 mg IV every 12 hours. Start time: 18:52 on 12/07/2024 Exposure target: AUC24 (range)400-600 mg/L.hr RKS30-87: 419 mg/L.hr AUC24,ss: 556 mg/L.hr Probability of [...] Carin Kim PharmD documented in this encounter [facility] Work Phone: 12-19-2024 Miscellaneous Notes [...] next dressing change Outcome: Progressing Flowsheets (Taken 12/17/20242338) Decreased wound size/increased tissue granulation at next [...] Promote skin healing Outcome: Progressing Flowsheets (Taken 12/16/2024 2351) Promote skin healing: Assess skin/pad under line(s)/device(s) [...] Monitor/record intake including meals Reassess MST if white shoe ragger not consulted 12/15/2024 1037 by Cristiana Simon RN Outcome: Progressing Flowsheets (Taken 12/15/2024 1037) Promote/optimize nutrition: Assist with feeding Discuss with provider if NPO > 2 days Offer water/supplements/favorite foods Consume > 50% meals/supplements Monitor/record intake including meals Reassess MST if white shoe ragger not consulted Goal: Promote skin healing 12/15/2024 1037 by Cristiana Simon RN Flowsheets (Taken 12/15/2024 1037) Promote skin healing: Assess skin/pad under line(s)/device(s) Ensure correct size (line/device) and apply per pest control applicator instructions Protective dressings over bony prominences Rotate device position/do not position patient on device Turn/reposition every 2 hours/use positioning/transfer devices 12/15/2024 1037 by Cristiana Simon RN Outcome: Progressing Flowsheets (Taken 12/15/2024 1037) Promote skin healing: Assess skin/pad under line(s)/device(s) Ensure correct size (line/device) and apply per pest control applicator instructions Protective dressings over bony prominences Rotate [...] first oncology appointment 12/09 but sent from [facility] for lethargy, increased drainage and odor and [...] and invasive SCC who is returning to [facility] 11/10/2024 as a transfer from [facility] regarding gluteal fluid collection. Notably, the pt was admitted at [facility] 11/10-11/27 after her arrived from [facility] and CT revealed large ulcerative wound at [...] zosyn. Was discharged to [facility] on Augmentin for one month. Today he presents as transfer from [facility] (where he was brought to from [facility]) with reports that his wound looks worse. [...] and invasive SCC who is returning to [facility] 11/10/2024 as a transfer from [facility] regarding gluteal wound with worsening [...] next dressing change Outcome: Progressing Flowsheets (Taken 12/07/2024 1642) Decreased wound size/increased tissue granulation at next [...] safe from injury documented in this encounter [facility] Work Phone: 12-18-2024 Consult note [...] Integrative Hem/Onc Consult performed by: Cristiana Evans APRN-SHAREPOINT SPECIALIST Consult ordered by: Mack Frias MD Reason [...] before oncologic resection. Integrative hematology/oncology consulted by [facility] oncology team for non-pharmacological symptom management of depression and pain. Pt resting in bed at time of exam, no family at bedside. Integrative hematology/oncology consult team introduced to pt. Non-pharmacological symptom management interventions reviewed, including: Reiki, meditation, mindfulness practices, guided imagery, as well as acupuncture, acupressure, and gentle bodywork. Pt declined integrative heme/onc services. Music therapy, art therapy, nurse charge rn and pet therapy offered to pt, pt declined; pt stated the special programs director has been following. Information obtained from chart [...] 12/06/2024 and 11/19/2024 CT examinations. ACCESSION NUMBER(S): [id number] ORDERING CLINICIAN: GIBSON MENDIOLA TECHNIQUE: Multiplanar multisequence [...] Kong Armijo 12/12/2024 1:33 PM Dictation workstation: [id number] MR femur left wo IV contrast Result Date: 12/12/2024 Interpreted By: Kong Armijo and Lawrence Austen STUDY: MRI of the left femur with and without contrast dated 12/10/2024. 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 History of chronic hidradenitis suppurativa. COMPARISON: Correlation is made with 12/06/2024 and 11/19/2024 CT examinations. ACCESSION NUMBER(S): [id number] ORDERING CLINICIAN: TOYA RUBIO TECHNIQUE: Multiplanar multisequence MRI of the left femur was performed with and without intravenous gadolinium based contrast. FINDINGS: No images were obtained as the patient was unable to cooperate for the exam. No images were obtained as the patient was unable to cooperate for the exam. MACRO: None Signed by: Kong Armijo 12/12/2024 1:18 PM Dictation workstation: [id number] CT pelvis w IV contrast Result Date: 12/06/2024 Patient Name: KEVAN LA : 1975 [facility]#: [id number] Exam Date/Time: 12/06/2024 12:46 Procedure: CT PELVIS [...] carcinoma. COMPARISON: CT pelvis 11/08/2024. ACCESSION NUMBER(S): [id number] ORDERING CLINICIAN: CLAUDIO PLUNKETT TECHNIQUE: CT of the chest, abdomen, and pelvis was performed. Contiguous axial images were obtained at 3 mm slice thickness through the chest, abdomen and pelvis. Coronal and sagittal reconstructions at 3 mm slice thickness were performed. 90 ML of Omnipaque 350 was administered intravenously without immediate complication. FINDINGS: CHEST: LUNG/PLEURA/LARGE AIRWAYS: Qpjf-rn-ltbtpmgw upper lobe predominant centrilobular and paraseptal emphysema. [...] Attention on follow-up examinations is recommended. 5. Izvb-iixazbi-qyns-right skin thickening extending from the sacral region to the proximal thigh, in keeping with patient's background of hydradenitis suppurativa. 6. Wwel-yk-wjzfcliv upper lobe predominant centrilobular and paraseptal emphysema. I personally reviewed the images/study and I agree with the findings as stated by Elenita Munroe MD (PGY-2). This study was interpreted at [facility], [place], [place]. MACRO: None Signed by: Ravin Hyatt 11/19/2024 4:54 PM Dictation workstation: [id number] Assessment/Plan Introduction to Integrative Medicine: Spoke with pt at bedside. Patient seemed to appreciate the extra layer of support. Integrative Medicine was introduced as a service for patients with serious illness to help with symptoms through non-pharmacological management, such as mindfulness, acupuncture, and gentle bodywork. Such interventions can assist with symptoms such as anxiety, fatigue, nausea, depression and pain. [facility] Integrative Medicine Symptom Management program offers multi-disciplinary [...] integrative heme/onc services. Music therapy, art therapy, nurse charge rn and pet therapy offered to pt, pt declined; pt stated the special programs director has been following. Left gluteal pain: pain related to malignancy, lesions Pain is well-controlled Defer to supportive oncology team for adequate PO/IV pain regimen Recommend integrative therapy modalities as pt allows: -Acupuncture; provided pt education today. Pt declined services, requesting follow up when next available -Acupressure, gua sha -Gentle bodywork and stretching as tolerated -Art therapy -Music therapy -Manager Cafe -Pet therapy Altered Mood: Anxiety and/or depression r/t health concerns History of anxiety/depression -Recommend integrative medicine modalities as listed above Mindfulness Brittney: AMDtx, Calm, Headspace, Insight Timer Guided Imagery Meditation (15 min in the morning) - consider mindfulness (Mindfulness based Stress Reduction) Apps such as CALM or Headspace Deep breathing: Alternate nostril breathing and Deep abdominal breathing (5 min) in the morning [facility] - Guided Meditation Thank you for allowing us to participate in the care of this patient. Integrative Medicine Team will continue to follow as needed. Please contact team with any questions or concerns. TRAVIS Patel (available by [employer]) [facility] Inpatient Integrative Medicine I spent 45 minutes [...] from last 72 hours Lab Units 12/09/24 0512/08/24 0612/07/24 1749 SODIUM mmol/L 140 140 140 POTASSIUM [...] Results from last 72 hours Lab Units 12/09/2455412/08/24 0612/07/24 1749 ALK PHOS U/L -- 48 53 [...] reports having a good appetite during and DRAMA TEACHER. DRAMA TEACHER would drink ensure and a pastry for [...] Energy Estimated Needs in 24 hours (kCal): ([phone]) Method for Estimating Needs: ABW x 28-32 [...] left gluteal region who was transferred to [facility] due to concerns for worsening left gluteal [...] affecting the LLE who was transferred to [facility] due to concerns of worsening LLE infection. [...] Little MD PGY-3 General Surgery Surgical Oncology [id number] Cosigned by Kong Mina MD at 12/09/2024 8:32 AM EDT Associated Order(s): Inpatient consult to [facility] Adult Supportive Oncology SUPPORTIVE AND PALLIATIVE ONCOLOGY [...] medications to patient prior to discharge via [facility] pharmacy. Prescriptions will need to be sent 48-72 hours prior to discharge so that a prior authorization can be completed. Discharge date: unknown pending acute issues Patient has an appointment with Outpatient Supportive Oncology TRAVIS Talavera 12/17/24 SIGNATURE: TRAVIS Rodas PAGER/CONTACT: Contact information: Supportive and Palliative Oncology Monday-Monday 8 AM-5 PM [employer] or pager [phone]. After hours and weekends: pager [phone] Inpatient consult to [facility] Adult Supportive Oncology Consult performed by: TRAVIS Rodas Consult ordered by: Mine Nunez MD PALLIATIVE MEDICINE OUTPATIENT PROVIDER: TRAVIS Talavera- has NPV 12/17 CURRENT ATTENDING PROVIDER: Toya Rubio MD Medical Oncologist: Sreedhar Jiang MD Radiation Oncologist: No care hospice team lead to display Primary Physician: No primary care [...] alone. Has supportive brother and parents in [place], [place]. 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 Social History: reports that he [...] QT Interval 368 QTC Calculation(Bazett) 416 P [place] 55 R [place] 72 T [place] 66 QRS Count 13 Q Onset 211 [...] limitations due to pain Joys/meaning/strength: Family and [place] Understanding of health: Demonstrates good prognostic understanding [...] Surrogate decision maker is brother Omkar La [phone] Supportive Interventions: Interventions: Music Therapy: referral placed, [...] of shared electronic medical record/secure chat/email or [id number]. We will continue to follow. Please contact us for additional questions or concerns. SIGNATURE: TRAVIS Rodas PAGER/CONTACT: Contact information: Supportive and Palliative Oncology Monday-Monday 8 AM-5 PM [employer] Secure chat or pager [phone]. After hours and weekends: pager [phone] documented in this encounter [facility] Work Phone: 12-17-2024 Hospital Discharge [...] to feel better! documented in this encounter [facility] Work Phone: 12-16-2024 Procedure note Associated Ord er(s): CLINICAL LEADER MODIFIED BARIUM SWALLOW EVALUATION Speech-Language Pathology Inpatient Modified Barium Swallow Study Patient Name: Kevan La : 1975 Today's Date: 12/16/24 Start Time: 845 Stop Time: 915 Time Calculation (min): 30 min Modified Barium Swallow Study completed. Informed verbal consent obtained prior to completion of exam. Trials of thin liquid, mildly thick liquid, puree, and solids were given. CLINICAL LEADER: Makayla Dunham CLINICAL LEADER Contact info: Maira davidson Reason for Referral: C/f aspiration/oropharyngeal dysphagia Patient Hx: Kevan La is a 49 y.o. 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 CLINICAL LEADER Frequency: 2x per week Duration: 1-2 weeks [...] given on all accounts. Treatment Provided Today: CLINICAL LEADER provided extensive education and training to pt/pt [...] further evaluation by medical specialists, as applicable. CLINICAL LEADER Impressions with Severity Rating: Pt presenting with [...] obtained, suspect within normal limits for clearance CLINICAL LEADER recommends cautious initiation of thin liquids and easy to chew diet. See additional PO intake guidelines outlined below. If pt demonstrates any change/decline in medical/mental/respiratory status please make NPO and alert CLINICAL LEADER. Will continue to follow while in acute care setting to ensure diet tolerance and use of safe swallow guidelines. MD aware of recommendations Rosenbek's Penetration Aspiration Scale Thin Liquids: 3. PENETRATION with LOW ASPIRATION risk - contrast remains above vocal cords, visible residue] [place] Thick Liquids: 3. PENETRATION with LOW ASPIRATION risk - contrast remains above vocal cords, visible residue] Puree: 1. NO ASPIRATION & NO PENETRATION - no aspiration, contrast does not enter airway Solids: 1. NO ASPIRATION & NO PENETRATION - no aspiration, contrast does not enter airway documented in this encounter [facility] Work Phone: 12-10-2024 Nurse Note [...] some divisional activities. documented in this encounter [facility] Work Phone: 12-07-2024 History and physical note [facility] ACUTE CARE SURGERY - CONSULT Patient Name: Kevan La Admit Date: 12/07/2024 : 1975 AGE: 49 y.o. GENDER: male TODAY'S ASSESSMENT AND PLAN OF CARE: ASSESSMENT: Kevan La is a 49 y.o. male with history of hidradenitis supprativa refractory to numerous medications, invasive SCC dx in Oct 2024 both affecting the LLE who was transferred to [facility] due to concerns for worsening infection in the LLE. Pt is stable with no s/s of systemic infection. High suspicion for necrotic oncologic mass over fluid collection. No indication for I&D. Requested outside images from rads op, recommend requesting radiology overread. Consider MRI to further evaluation of soft tissue/mass Discussed with Dr. Garrison. Kishore Sweeney MD PGY-1 General Surgery Acute Care Surgery [id number] Subjective CHIEF COMPLAINT/REASON FOR CONSULT: Chief Complaint: change in quantity and quality of drainage from know HS HPI: Kevan La is a 49 y.o. male with history of hidradenitis supprativa refractory to numerous medications, invasive SCC dx in Oct 2024 both affecting the LLE who was transferred to [facility] due to concerns for worsening infection in [...] 12/08/2024 1:05 AM EDT Pts imaging from [facility] and [place] [facility] [place]. Recommend having our radiology team review [facility] and provide comparison to last CT [...] were not included. HISTORY & PHYSICAL Kevan Kudray : 1975(49 y.o.) Date: 12/07/24 H&P Chief Complaint: Cellulitis PCP: No primary care provider on file. HPI: Kevan La is a 49 y.o. male with a PMHx of refractory hidradenitis supprativa and squamous cell carcinoma and who presents for cellulitis. Was admitted from OSH on 12/08, chronic gluteal wound and hypotension. Today he presents as transfer from [facility], came in from [facility], reporting worsening wound. States for the last week he has noticed increased odor and discharge (unclear what color). Endorses taking his Augmentin as instructed. Denies any worsening pain. States during this time he has felt fatigued and endorses nausea and NBNB vomiting. Denies any fever, chills, or any other symptoms. Notably, the pt was admitted at [facility] 11/10-11/27 after her arrived from [facility] and CT revealed large ulcerative wound at [...] and invasive SCC who is returning to [facility] 11/10/2024 as a transfer from [facility] regarding gluteal fluid collection. Labs [...] Anemia #Folate Deficiency :: Hgb 10.4 at [facility], Hgb 8.8 on admission, Hgb 9.0 today [...] Extended Emergency Contact Information Primary Emergency Contact: TaliOmkar Mobile Relation: Brother Cosigned by Toya Rubio MD at 12/08/2024 5:04 PM EDT documented in this encounter [facility] Work Phone: 12-07-2024 Nurse Note [phone] called report to ambulance is here to pick patient up [facility] 12-07-2024 Nurse Note [phone] called report to ambulance is here to pick patient up 1114 usp RN called regarding updates, updated on patient status/plan of care documented in this encounter [facility] 12-07-2024 Note Attestation signed by [...] carcinoma, chronic kidney diseaset hat presented to [facility] on 12/06/2024 with increased drainage from [...] to his established general surgery team at [facility]. Transfer was arranged. Patient was maintained [...] Time of Discharge Wound culture, Blood cultures [facility] 12-07-2024 Hospital course Narrative Internal Medicine: [...] carcinoma, chronic kidney diseaset hat presented to [facility] on 12/06/2024 with increased drainage from [...] to his established general surgery team at [facility]. Transfer was arranged. Patient was maintained [...] on discharge >30min documented in this encounter [facility] 12-07-2024 Emergency department Note Report to AMAN Galindo. [facility] 12-07-2024 Emergency department Note Report to AMAN Galindo. Patient provided urinal per request. Respirations even and unlabored. No acute distress noted. Report from AMAN Galindo. Report to Josie/AMAN and patient moved to room 9 with all belongings and breakfast tray Patient moving from 43 to 9 now AMAN/Margarita ordered breakfast for the patient per his preference Requested pharmacy to retime Jeanette due to 3 hour administration of Zosyn [...] distances. Pt is A&Ox4. Emergency Department Encounter [facility] EMERGENCY DEPT Patient: Kevan La : [...] for clarification.) Fer Hollins MD Acute Care [facility] Fer Hollins MD 12/06/24 1120 documented in this encounter [facility] 12-07-2024 Emergency department Note Patient provided urinal per request. Respirations even and unlabored. No acute distress noted. [facility] 12-07-2024 Emergency department Note Report from AMAN Galindo. [facility] 12-07-2024 Note 1114 usp RN called regarding updates, updated on patient status/plan of care [facility] 12-07-2024 Nurse Note 1114 usp RN called regarding updates, updated on patient status/plan of care [facility] 12-07-2024 Emergency department Note Report to Josie/AMAN and patient moved to room 9 with all belongings and breakfast tray [facility] 12-07-2024 Emergency department Note Patient moving from 43 to 9 now [facility] 12-07-2024 Emergency department Note AMAN/Margarita ordered breakfast for the patient per his preference T [facility] 12-07-2024 Emergency department Note Requested pharmacy to retime Vanc due to 3 hour administration of Zosyn (& both ordered at same time) T [facility] 12-07-2024 Consult note Formatting of [...] creatinine, and vancomycin levels interfaced automatically to [employer] and data has been analyzed and interpreted. [...] Clinical Pharmacist Available via Secure Chat T [facility] 12-07-2024 Consult note Formatting of th is [...] creatinine, and vancomycin levels interfaced automatically to [employer] and data has been analyzed and interpreted. [...] via Secure Chat documented in this encounter [facility] 12-07-2024 History and physical note [...] carcinoma by the general surgery team at [facility]. He is scheduled to be transferred [...] 16.6* ABGs: No results for input(s): "PHART", "OHX2OZT", "PO2ART", "COQ3WVJ", "SO2ART", "C7SWOVAC" in the last 72 hours. Lactic Acid: [...] documented squamous cell carcinoma from dermatology at [facility] -CT scan of abdomen and pelvis showing [...] Normal (BMI 18.5-24.9) - Disposition: Admit to [facility]. - Given the signs and symptoms [...] monitoring serum creatinine 7AM-5PM: contact resident on "[facility] Med B" (find by hovering over attending's name on left side of patient's chart) 5PM-7AM: contact [facility] Phone: 12-07-2024 Note Attestation signed by Juvenal [...] serum creatinine 7AM-5PM: contact resident on "[facility] Med B" (find by hovering over attending's [...] carcinoma by the general surgery team at [facility]. He is scheduled to be transferred [...] g) into a (more content not included)... [facility] 12-07-2024 History and physical note Internal [...] carcinoma by the general surgery team at [facility]. He is scheduled to be transferred [...] 16.6* ABGs: No results for input(s): "PHART", "UYS8TAS", "PO2ART", "TLL7TWV", "SO2ART", "P1CDTBJJ" in the last 72 hours. Lactic Acid: [...] documented squamous cell carcinoma from dermatology at [facility] -CT scan of abdomen and pelvis showing [...] Normal (BMI 18.5-24.9) - Disposition: Admit to [facility]. - Given the signs and symptoms [...] contact AI2 res documented in this encounter [facility] 12-07-2024 Emergency department Note Patient actively vomiting - provider notified [facility] 12-07-2024 Emergency department Note Report given to AMAN Sutton [facility] 12-06-2024 Emergency department Note Assume care of pt from AMAN Sutton for lunch coverage [facility] 12-06-2024 Emergency department Note Patient requested pillow to place under right hip/leg for comfort. States he got a text message from that he can "early check in" and questioned if transfer was arranged. This nurse advised patient unknown at this time. [facility] 12-06-2024 Emergency department Note Pt to CT [facility] 12-06-2024 Emergency department Note This RN attempted to obtain another IV access and blood cultures but was unsuccessful [facility] 12-06-2024 Emergency department Note Report to AMAN Pittman. [facility] 12-06-2024 Emergency department Note Pt presents to ED via EMS from an assisted living facility with c/o a seeping ulcer. EMS reports this has been an ongoing issue. Pt states he is only ambulatory for short distances. Pt is A&Ox4. [facility] 12-06-2024 Physician Emergency department Note [...] [employer] Fer Hollins MD 12/06/24 [address] [employer] Phone: 11-29-2024 History of Present illness Narrative [...] Attention on follow-up examinations is recommended. 5. Bgos-fobqsep-mhyk-right skin thickening extending from the sacral region to the proximal thigh, in keeping with patient's background of hydradenitis suppurativa. 6. Ezft-ro-pylrzlte upper lobe predominant centrilobular and paraseptal emphysema. [...] clinical picture. Sreedhar Jiang MD Attending Physician [facility] [employer] [facility] [employer] documented in this encounter [facility] Work Phone: 11-27-2024 History of Present illness Narrative Auth approved. Per medical team, patient is medically ready to discharge. [facility]. Transport confirmed for 5pm today with [facility] ([phone]). Report: [phone]. Nurse, medical team, SNF, and patient aware [...] the consistency". Patient has tried the [employer], but states it melts before he [...] Lunch Select supplement: Ensure Plus 11/11/24 1047 11/10/24426 May Participate in Room Service ( ROOM [...] Kevan La : 1975 Date: 11/26/24 Room: [address] [place] [address] Time Calculation Start Time: 1234 Stop Time: [...] of continued care Equipment Recommended upon Discharge: (specialist wound care, sock aide, shower chair) OT Recommended Transfer [...] Strength Comments: WFL via ADLs Outcome Measures: [facility] Daily Activity Putting on and taking off [...] 12/02/24 11/26/24 at 2:05 PM Manuela Elmore OTR/L [phone] Requested [facility] [place] start precert for [employer] [place]. Jami Erwin RN, TCC Occupational Therapy Therapy Communication Note Patient Name: Kevan La Department: [place] [address] Room: [address] [place] [address] Today's Date: 11/26/2024 Discipline: Occupational Therapy OT [...] w IV contrast Narrative: Interpreted By: Ravin Hyatt, and Ludwig Kwong STUDY: CT CHEST ABDOMEN PELVIS W IV CONTRAST; 11/19/2024 2:43 pm INDICATION: Signs/Symptoms:new dx of invasive SCC, eval for mets. Per EMR: Patient with history of hydradenitis suppurativa with chronic left gluteal wound and recent biopsy positive for well-differentiated invasive squamous cell carcinoma. COMPARISON: CT pelvis 11/08/2024. ACCESSION NUMBER(S): [id number] ORDERING CLINICIAN: CLAUDIO PLUNKETT TECHNIQUE: CT of the chest, abdomen, and pelvis was performed. Contiguous axial images were obtained at 3 mm slice thickness through the chest, abdomen and pelvis. Coronal and sagittal reconstructions at 3 mm slice thickness were performed. 90 ML of Omnipaque 350 was administered intravenously without immediate complication. FINDINGS: CHEST: LUNG/PLEURA/LARGE AIRWAYS: Bzjo-wu-lrbvacsy upper lobe predominant centrilobular and paraseptal emphysema. [...] Attention on follow-up examinations is recommended. 5. Lcog-hwinvjg-pcba-right skin thickening extending from the sacral region to the proximal thigh, in keeping with patient's background of hydradenitis suppurativa. 6. Kssz-mp-aexdqjsa upper lobe predominant centrilobular and paraseptal emphysema. I personally reviewed the images/study and I agree with the findings as stated by Elenita Munroe MD (PGY-2). This study was interpreted at [facility], [place], [place]. MACRO: None Signed by: Ravin Hyatt 11/19/2024 4:54 PM Dictation workstation: [id number] Physical Exam General: Resting in bed on [...] clindamycin, rifampin, augmentin and doxycycline, transferred from [facility] regarding 14cm gluteal fluid collection. [...] tentatively arrange follow-up with Dr. Jiang at [facility] [place] pending transport capabilities of eventual SNF - [...] outpt follow-up if he is establishing at [facility] for follow-up oncology care [ ] f/u [...] ::A1c and UA normal on admission at [facility] ::FeUrea 48.2% (>35=> suggestive of intrinsic renal disease) Plan - Avoid nephrotoxic drug, hypotension, sepsis, dehydration - Continuing to encourage oral hydration and monitor serum calcium #Bladder Calculi ::Incidentally noted on CT Pelvis from OSH, asymptomatic, max diam is 1.5 cm #Normocytic Anemia #Folate Deficiency :: Hgb 10.4 at [facility], Hgb 8.8 on admission, Hgb 9.0 today [...] Therapy Treatment Patient Name: Kevan La Department: [place] [address] Room: [address] [place] [address] Today's Date: 11/25/2024 Time Calculation Start Time: [...] of Assistance 2: Contact guard Outcome Measures: [facility] Basic Mobility Turning from your back to [...] MTI who both sang and self-accompanied on [place]. Evaluation: Pt responded by engaging in conversation [...] oral prior to discharge. PAYOR: Veronica DISPO: [facility] is accepting FOC. ADOD 2-3 days. Will [...] w IV contrast Narrative: Interpreted By: Ravin Hyatt, and Ludwig Kwong STUDY: CT CHEST ABDOMEN PELVIS W IV CONTRAST; 11/19/2024 2:43 pm INDICATION: Signs/Symptoms:new dx of invasive SCC, eval for mets. Per EMR: Patient with history of hydradenitis suppurativa with chronic left gluteal wound and recent biopsy positive for well-differentiated invasive squamous cell carcinoma. COMPARISON: CT pelvis 11/08/2024. ACCESSION NUMBER(S): [id number] ORDERING CLINICIAN: CLAUDIO PLUNKETT TECHNIQUE: CT of the chest, abdomen, and pelvis was performed. Contiguous axial images were obtained at 3 mm slice thickness through the chest, abdomen and pelvis. Coronal and sagittal reconstructions at 3 mm slice thickness were performed. 90 ML of Omnipaque 350 was administered intravenously without immediate complication. FINDINGS: CHEST: LUNG/PLEURA/LARGE AIRWAYS: Yzou-to-lsehnwrc upper lobe predominant centrilobular and paraseptal emphysema. [...] Attention on follow-up examinations is recommended. 5. Eira-cukkstm-jxgf-right skin thickening extending from the sacral region to the proximal thigh, in keeping with patient's background of hydradenitis suppurativa. 6. Hrqt-sk-racxulpt upper lobe predominant centrilobular and paraseptal emphysema. I personally reviewed the images/study and I agree with the findings as stated by Elenita Munroe MD (PGY-2). This study was interpreted at [place], [place]. MACRO: None Signed by: Ravin Hyatt 11/19/2024 4:54 PM Dictation workstation: [id number] Physical Exam General: Resting in bed on [...] clindamycin, rifampin, augmentin and doxycycline, transferred from [facility] regarding 14cm gluteal fluid collection. [...] tentatively arrange follow-up with Dr. Jiang [place] [facility] pending transport capabilities of eventual SNF - [...] outpt follow-up if he is establishing at [facility] [place] follow-[place] oncology care [ ] f/u [...] ::A1c and UA normal on admission at [facility] ::FeUrea 48.2% (>35=> suggestive of intrinsic renal disease) Plan - Avoid nephrotoxic drug, hypotension, sepsis, dehydration - Continuing to encourage oral hydration and monitor serum calcium #Bladder Calculi ::Incidentally noted on CT Pelvis from OSH, asymptomatic, max diam is 1.5 cm #Normocytic Anemia #Folate Deficiency :: Hgb 10.4 at [facility], Hgb 8.8 on admission, Hgb 9.0 today [...] carcinoma. COMPARISON: CT pelvis 11/08/2024. ACCESSION NUMBER(S): [id number] ORDERING CLINICIAN: CLAUDIO PLUNKETT TECHNIQUE: CT of the chest, abdomen, and pelvis was performed. Contiguous axial images were obtained at 3 mm slice thickness through the chest, abdomen and pelvis. Coronal and sagittal reconstructions at 3 mm slice thickness were performed. 90 ML of Omnipaque 350 was administered intravenously without immediate complication. FINDINGS: CHEST: LUNG/PLEURA/LARGE AIRWAYS: Zjob-bs-bpzupcgp upper lobe predominant centrilobular and paraseptal emphysema. [...] Attention on follow-up examinations is recommended. 5. Kdcf-euyqdfi-zxyh-right skin thickening extending from the sacral region to the proximal thigh, in keeping with patient's background of hydradenitis suppurativa. 6. Phag-jv-bqfcdqyw upper lobe predominant centrilobular and paraseptal emphysema. I personally reviewed the images/study and I agree with the findings as stated by Elenita Munroe MD (PGY-2). This study was interpreted at [facility], [place], [place]. MACRO: None Signed by: Ravin Hyatt 11/19/2024 4:54 PM Dictation workstation: [id number] Physical Exam General: Resting in bed on [...] clindamycin, rifampin, augmentin and doxycycline, transferred from [facility] regarding 14cm gluteal fluid collection. [...] tentatively arrange follow-up with Dr. Jiang at [facility] [place], pending transport capabilities of eventual SNF - [...] ::A1c and UA normal on admission at [facility] ::FeUrea 48.2% (>35=> suggestive of intrinsic renal disease) - Avoid nephrotoxic drug, hypotension, sepsis, dehydration - Continuing to encourage oral hydration and monitor serum calcium #Bladder Calculi ::Incidentally noted on CT Pelvis from OSH, asymptomatic, max diam is 1.5 cm #Normocytic Anemia #Folate Deficiency :: Hgb 10.4 at [facility], Hgb 8.8 on admission, Hgb 9.0 today [...] carcinoma. COMPARISON: CT pelvis 11/08/2024. ACCESSION NUMBER(S): [id number] ORDERING CLINICIAN: CLAUDIO PLUNKETT TECHNIQUE: CT of the chest, abdomen, and pelvis was performed. Contiguous axial images were obtained at 3 mm slice thickness through the chest, abdomen and pelvis. Coronal and sagittal reconstructions at 3 mm slice thickness were performed. 90 ML of Omnipaque 350 was administered intravenously without immediate complication. FINDINGS: CHEST: LUNG/PLEURA/LARGE AIRWAYS: Smuu-ur-phybourm upper lobe predominant centrilobular and paraseptal emphysema. [...] Attention on follow-up examinations is recommended. 5. Kuzs-ydnjwsm-hmcg-right skin thickening extending from the sacral region to the proximal thigh, in keeping with patient's background of hydradenitis suppurativa. 6. Wbtj-mt-yvjeplyz upper lobe predominant centrilobular and paraseptal emphysema. I personally reviewed the images/study and I agree with the findings as stated by Elenita Munroe MD (PGY-2). This study was interpreted at [place], [place]. MACRO: None Signed by: Ravin Hyatt 11/19/2024 4:54 PM Dictation workstation: [id number] Physical Exam General: Resting in bed on [...] clindamycin, rifampin, augmentin and doxycycline, transferred from [facility] regarding 14cm gluteal fluid collection. [...] tentatively arrange follow-up with Dr. Jiang [place] [facility] [place] pending transport capabilities of eventual SNF - [...] Stopped PO Augmentin 875 BID (11/14-11/22/24) :: 3 New wound infection suspected Plan: - repeat [...] ::A1c and UA normal on admission at [facility] ::FeUrea 48.2% (>35=> suggestive of intrinsic renal disease) - Avoid nephrotoxic drug, hypotension, sepsis, dehydration - Continuing to encourage oral hydration and monitor serum calcium #Bladder Calculi ::Incidentally noted on CT Pelvis from OSH, asymptomatic, max diam is 1.5 cm #Normocytic Anemia #Folate Deficiency :: [facility], Hgb 8.8 on admission, Hgb 9.0 today [...] molecule JAK1 inhibitor), who was transferred from [facility] for a worsening of L gluteal wound [...] the context of long-standing hidradenitis suppurativa, PMID: [id number] 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 PMID: [id number] Update 11/22: Increased purulence and odor noted [...] Therapy Treatment Patient Name: Kevan La Department: [place] [address] Room: [address] [place] [address] Today's Date: 11/22/2024 Time Calculation Start Time: [...] ther ex. Decreased ability to continue to automatic nailing machine feeder order to work on standing ther ex [...] avoid weight thru left side.) Outcome Measures: [facility] Basic Mobility Turning from your back to [...] 11/26/24 Pain - Adult Cosigned by Doris Guzman, PT at 11/22/2024 3:05 PM EST SUPPORTIVE [...] q8h Continue scheduled fentanyl 50mcg/h TD patch [id number] 11/20/24 Continue gabapentin 300mg PO once daily [...] medications to patient prior to discharge via [facility] pharmacy. Prescriptions will need to be sent 48-72 hours prior to discharge so that a prior authorization can be completed. Discharge date pending resolution of acute hospital issues. Patient does not currently qualify for an appointment with outpatient Supportive Oncology--He first needs to establish with outpatient Oncology. SIGNATURE: Jami Lance APRN-SHAREPOINT SPECIALIST PAGER/CONTACT: Contact information: Supportive and Palliative Oncology Monday-Monday 8 AM-5 PM [employer] Secure chat or pager [phone]. After hours and weekends: pager [phone] == SUBJECTIVE: Pain Assessment: I have no pain right now. Opioid Requirements Past 24h opioid requirements: (11/21-11/22, 7613-4598) fentanyl 50mcg/h TD patch x 1 = [...] of Care/Advance Care Planning: (Per Emile Segovia, NEHAL's, note on 11/16/24) Patient's current clinical condition, including diagnosis, prognosis, and management plan, and goals of care were discussed. Life limiting disease: SCC of UNK primary Family: Supportive though live in [place] Performance status: Moderate limitations due to pain Joys/meaning/strength: Family and [place] Understanding of health: 11/16: Demonstrates good prognostic [...] maker: Surrogate decision maker is Omkar robertson ([phone]) == Signature and billing: Medical complexity was [...] of shared electronic medical record/secure chat/email or [id number]. We will continue to follow. Please contact us for additional questions or concerns. SIGNATURE: TRAVIS Huizar PAGER/CONTACT: Contact information: Supportive and Palliative Oncology Monday-Monday 8 AM-5 PM, [facility] Secure chat or pager [phone]. After hours and weekends: pager [phone] Kevan La is a 49 y.o. male [...] clindamycin, rifampin, augmentin and doxycycline, transferred from [facility] regarding 14cm gluteal fluid collection. [...] tentatively arrange follow-up with Dr. Jiang at [facility] [place], pending transport capabilities of eventual SNF - [...] ::A1c and UA normal on admission at [facility] ::FeUrea 48.2% (>35=> suggestive of intrinsic renal disease) - Avoid nephrotoxic drug, hypotension, sepsis, dehydration - Continuing to encourage oral hydration and monitor serum calcium #Bladder Calculi ::Incidentally noted on CT Pelvis from OSH, asymptomatic, max diam is 1.5 cm #Normocytic Anemia #Folate Deficiency :: Hgb 10.4 at [facility], Hgb 8.8 on admission, Hgb 9.0 today [...] clindamycin, rifampin, augmentin and doxycycline, transferred from [facility] regarding 14cm gluteal fluid collection. [...] 11/21 Updates: - LC staining negative - [place] 61.2 (H), Lambda 44.2 (H), ratio 1.38 [...] tentatively arrange follow-up with Dr. Jiang at [facility] [place], pending transport capabilities of eventual SNF - [...] ::A1c and UA normal on admission at [facility] ::FeUrea 48.2% (>35=> suggestive of intrinsic renal disease) - Avoid nephrotoxic drug, hypotension, sepsis, dehydration - Continuing to encourage oral hydration and monitor serum calcium #Bladder Calculi ::Incidentally noted on CT Pelvis from OSH, asymptomatic, max diam is 1.5 cm #Normocytic Anemia #Folate Deficiency :: [facility], Hgb 8.8 on admission, Hgb 9.0 today [...] q8h Continue scheduled fentanyl 50mcg/h TD patch [id number] 11/20/24 Start gabapentin 300mg PO once daily [...] medications to patient prior to discharge via [facility] pharmacy. Prescriptions will need to be sent 48-72 hours prior to discharge so that a prior authorization can be completed. Discharge date: unknown pending acute issues Patient does not qualify for an appointment with Outpatient Supportive Oncology- needs to establish with Oncology outpatient SIGNATURE: TRAVIS Huizar PAGER/CONTACT: Contact information: Supportive and Palliative Oncology Monday-Monday 8 AM-5 PM [employer] Secure chat or pager [phone]. After hours and weekends: pager [phone] == SUBJECTIVE: Interval Events: Pt's pain sub-optimally controlled on current regimen. Discussed with pt and he is agreeable to above recommendations. Plans to re-evaluate pt tomorrow for possible eligibility for fentanyl patch increase. Dropped off Supportive Oncology information packet, [facility] packet, and packet regarding assistance with disability/financial resources per special programs director. Pain Assessment: Location: Left gluteal abscess Duration: Constant Characteristics: Ratin/10 Descriptors: Throbbing, sharp, and burning Aggravating: Movement, "worse at night" Relieving: Analgesics, positioning, and modifying activity Interference with Function: Somewhat Opioid Requirements Past 24h opioid requirements: (11/20-11/21, 2928-1637) fentanyl 50mcg/h TD patch x 1 = [...] of Care/Advance Care Planning: (Per Emile Segovia, SHAREPOINT SPECIALIST's, note on 11/16/24) Patient's current clinical condition, including diagnosis, prognosis, and management plan, and goals of care were discussed. Life limiting disease: SCC of UNK primary Family: Supportive though live in [place] Performance status: Moderate limitations due to pain Joys/meaning/strength: Family and [place] Understanding of health: 11/16: Demonstrates good prognostic [...] maker: Surrogate decision maker is Omkar robertson ([phone]) == Signature and billing: Medical complexity was [...] of shared electronic medical record/secure chat/email or [id number]. We will continue to follow. Please contact us for additional questions or concerns. SIGNATURE: TRAVIS Huizar PAGER/CONTACT: Contact information: Supportive and Palliative Oncology Monday-Monday 8 AM-5 PM, [employer] Secure chat or pager [phone]. After hours and weekends: pager [phone] Transitional Care Coordination Progress Note: Patient discussed during interdisciplinary rounds. Team members present: MIGUEL NIELSEN Plan per Medical/Surgical team: Gluteal Abscess Payor: Veronica Discharge disposition: [facility] gareth Malik Potential Barriers: medical ADOD: 3-4 days Per MD, continuing to manage pain. Pending plans from oncology. Updated notes sent to facility. Will continue to follow for discharge planning needs. Julisa GARZA, heavy equipment supervisor Coordinator (TCC) [phone] Occupational Therapy OT Treatment Patient Name: Kevan La Department: [place] [address] Room: [address] [place] [address] Today's Date: 11/21/2024 Time Calculation Start Time: [...] health - pt highly appreciative. Outcome Measures: [facility] Daily Activity Putting on and taking off [...] (OTR/L, OTD) Inpatient Occupational Therapist Rehab Office: [phone] Spiritual Care Visit Spiritual Care Request Spiritual Care Annotation Annotation: Forming Machine Upkeep Mechanic had a follow-up visit with the patient. Forming Machine Upkeep Mechanic delivered prayer book resources as promised and shared with the patient what was brought. 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 His family lives in [place]. Patient does not have much support around him in [place]. Forming Machine Upkeep Mechanic placed a [facility] cancer support referral for the patient upon his request. Forming Machine Upkeep Mechanic will continue to follow and provide support. Please reach out with any needs/concerns. Rev. Mack Schmitz, Supportive Oncology Forming Machine Upkeep Mechanic Physical Therapy Therapy Communication Note Patient Name: Kevan La Department: [facility] 3 Room: [address] [place] [address] Today's Date: 11/20/2024 Discipline: Physical Therapy PT Missed Visit: Yes Missed Visit Reason: Missed Visit Reason: Patient refused (Pt stated he has been nauseaus today and not willing to get up.) Missed Time: Attempt Comment: Cosigned by Doris Guzman PT at 11/20/2024 9:44 PM EST Occupational Therapy Therapy Communication Note Patient Name: Kevan La Department: [place] [address] Room: [address] [place] [address] Today's Date: 11/20/2024 Discipline: Occupational Therapy OT [...] (OTR/L, OTD) Inpatient Occupational Therapist Rehab Office: [phone] Kevan La is a 49 y.o. male [...] medications to patient prior to discharge via [facility] pharmacy. Prescriptions will need to be sent 48-72 hours prior to discharge so that a prior authorization can be completed. Discharge date: unknown pending acute issues Patient does not qualify for an appointment with Outpatient Supportive Oncology- needs to establish with Oncology outpatient SIGNATURE: TRAVIS Rodas PAGER/CONTACT: Contact information: Supportive and Palliative Oncology Monday-Monday 8 AM-5 PM [employer] Secure chat or pager [phone]. After hours and weekends: pager [phone] SUBJECTIVE: Interval Events: Pt continues to have [...] UNK primary Family: Supportive though [place] Performance status: Moderate limitations due to pain Joys/meaning/strength: Family and [place] Understanding of health: 11/16: Demonstrates good prognostic [...] of shared electronic medical record/secure chat/email or [id number]. We will continue to follow Please contact us for additional questions or concerns. SIGNATURE: TRAVIS Rodas PAGER/CONTACT: Contact information: [facility]ive and Palliative Oncology Monday-Monday 8 AM-5 PM [employer] Secure chat or pager [phone]. After hours and weekends: pager [phone] Kevan La is a 49 y.o. male [...] clindamycin, rifampin, augmentin and doxycycline, transferred from [facility] regarding 14cm gluteal fluid collection. [...] tentatively arrange follow-up with Dr. [place] [facility] [place] pending transport capabilities of eventual SNF - [...] in 08/2024 :: Last dose of Povorcitanib 1/23 :: Blood Cx from 11/10 NGTD :: [...] ::A1c and UA normal on admission at [facility] ::FeUrea 48.2% (>35=> suggestive of intrinsic renal disease) - Avoid nephrotoxic drug, hypotension, sepsis, dehydration - Continuing to encourage oral hydration and monitor serum calcium #Bladder Calculi ::Incidentally noted on CT Pelvis from OSH, asymptomatic, max diam is 1.5 cm #Normocytic Anemia #Folate Deficiency :: Hgb 10.4 at [facility], Hgb 8.8 on admission, Hgb 9.0 today [...] or performed during the hospital encounter of 02/23/25 (from the past 24 hours) CBC and [...] molecule JAK1 inhibitor), who was transferred from [facility] for a worsening of L gluteal wound [...] the context of long-standing hidradenitis suppurativa, PMID: [id number] 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 PMID: [id number] Recommendations: - Informed patient of biopsy results, [...] of Care: Visited With: Patient Refer to Forming Machine Upkeep Mechanic: Spiritual Care Assessment Spiritual Assessment: Care Provided: Intended Effects: Build relationship of care and support, Establish rapport and connectedness, Aligning care plan with patient's values, Convey a calming presence, Promote sense of peace Interventions: Ask guided questions, Active listening, Discuss concerns Sense of Community and or Denominational Affiliation: No shinto on file Forming Machine Upkeep Mechanic Addressed Needs/Concerns and/or Mike Through: Outcome: Advance Directives: Spiritual Care Annotation Annotation: Forming Machine Upkeep Mechanic introduced self and spiritual care services to [...] to focus on in his own life. Forming Machine Upkeep Mechanic made a plan to follow-up tomorrow. Please reach out with any needs/concerns. Rev. 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 Patient [...] Units 11/19/24 0608 11/18/24 0627 11/17/24 0515 WBC AUTO x10*3/uL 12.1* 12.3* 11.0 [...] clindamycin, rifampin, augmentin and doxycycline, transferred from [facility] regarding 14cm gluteal fluid collection. [...] ::A1c and UA normal on admission at [facility] ::FeUrea 48.2% (>35=> suggestive of intrinsic renal disease) - Avoid nephrotoxic drug, hypotension, sepsis, dehydration - Continuing to encourage oral hydration and monitor serum calcium #Bladder Calculi ::Incidentally noted on CT Pelvis from OSH, asymptomatic, max diam is 1.5 cm #Normocytic Anemia #Folate Deficiency :: Hgb 10.4 at [facility], Hgb 8.8 on admission, Hgb 9.0 today [...] Lunch Select supplement: Ensure Plus 11/11/24 1047 11/10/24426 May Participate in Room Service ( ROOM [...] , MIGUEL Plan per Medical/Surgical team: Gluteal abscess Payor: [employer] Discharge disposition: [facility] Potential Barriers: medical ADOD: 2-3 days Updated notes sent to [facility]. Will continue to monitor for discharge planning needs. Julisa GARZA, heavy equipment supervisor Coordinator (TCC) [phone] Physical Therapy Physical Therapy Treatment Patient Name: Kevan La Department: [place] [address] Room: [address] [place] [address] Today's Date: 11/18/2024 Time Calculation Start Time: [...] of Assistance 1: Close supervision Outcome Measures: [facility] Basic Mobility Turning from your back to [...] clindamycin, rifampin, augmentin and doxycycline, transferred from [facility] regarding 14cm gluteal fluid collection. [...] ::A1c and UA normal on admission at [facility] ::FeUrea 48.2% (>35=> suggestive of intrinsic renal disease) - Avoid nephrotoxic drug, hypotension, sepsis, dehydration - Continuing to encourage oral hydration and treat hypercalcemia #Bladder Calculi ::Incidentally noted on CT Pelvis from OSH, asymptomatic, max diam is 1.5 cm #Anemia :: Hgb 10.4 at [facility], Hgb 8.8 on admission, Hgb 9.0 today [...] Results from last 72 hours Lab Units 11/17/2415 11/16/24 0611/15/24 1256 WBC AUTO x10*3/uL 11.0 10.0 10.7 HEMOGLOBIN g/dL 8.3* 8.5* 8.1* HEMATOCRIT % 26.6* 26.1* 24.9* PLATELETS AUTO x10*3/uL 639* 619* 531* BMP Results from last 72 hours Lab Units 11/17/24 0515 11/16/24 0611/15/24 0535 SODIUM mmol/L 134* 136 138 POTASSIUM [...] clindamycin, rifampin, augmentin and doxycycline, transferred from [facility] regarding 14cm gluteal fluid collection. [...] ::A1c and UA normal on admission at [facility] ::FeUrea 48.2% (>35=> suggestive of intrinsic renal disease) - Avoid nephrotoxic drug, hypotension, sepsis, dehydration - Continuing to encourage oral hydration and treat hypercalcemia #Bladder Calculi ::Incidentally noted on CT Pelvis from OSH, asymptomatic, max diam is 1.5 cm #Anemia :: Hgb 10.4 at [facility], Hgb 8.8 on admission, Hgb 7.7 today [...] Ashly Patterson MD Endocrinology, PGY 5 Pager [phone] or secure chat Case discussed with Dr. [...] clindamycin, rifampin, augmentin and doxycycline, transferred from [facility] regarding 14cm gluteal fluid collection. [...] ::A1c and UA normal on admission at [facility] ::FeUrea 48.2% (>35=> suggestive of intrinsic renal disease) - Avoid nephrotoxic drug, hypotension, sepsis, dehydration - Continuing to encourage oral hydration and treat hypercalcemia #Bladder Calculi ::Incidentally noted on CT Pelvis from OSH, asymptomatic, max diam is 1.5 cm #Anemia :: Hgb 10.4 at [facility], Hgb 8.8 on admission, Hgb 7.7 today [...] Kevan La : 1975 Date: 11/15/24 Room: 319/319-A Time Calculation Start Time: 1530 Stop Time: [...] Dressing Where Assessed: Bed level Outcome Measures: [facility] Daily Activity Putting on and taking off [...] 11/15/24 at 4:17 PM Shereen Santoyo OT [phone] Kevan La is a 49 y.o. male [...] Communication Note Patient Name: Kevan La Department: [place] [address] Room: [address] [place] [address] Today's Date: 11/15/2024 Discipline: Physical Therapy PT Missed Visit: Yes Missed Visit Reason: Missed Visit Reason: Patient refused (pt stating he did not want to participate at this time but rest. 2nd attempt.) Missed Time: Attempt Comment: Cosigned by Doris Guzman, PT at 11/15/2024 1:41 PM EST Kevan [...] clindamycin, rifampin, augmentin and doxycycline, transferred from [facility] regarding 14cm gluteal fluid collection. [...] ::A1c and UA normal on admission at [facility] ::FeUrea 48.2% (>35=> suggestive of intrinsic renal disease) - Avoid nephrotoxic drug, hypotension, sepsis, dehydration - Continuing to encourage oral hydration and treat hypercalcemia #Bladder Calculi ::Incidentally noted on CT Pelvis from OSH, asymptomatic, max diam is 1.5 cm #Anemia :: Hgb 10.4 at [facility], Hgb 8.8 on admission, Hgb 7.7 today [...] - continue folate supplementation Isa Turner MD physician vice president, PGY-1 Cosigned by Claudio Plunkett MD [...] molecule JAK1 inhibitor), who was transferred from [facility] for a worsening of L gluteal wound [...] the context of long-standing hidradenitis suppurativa, PMID: [id number] 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 [...] ::Lactate 11/08: 1.2; 1.3 [facility]; Wound Cx were ordered, but not collected :: Last dose of Povorcitanib 10/10 :: Blood Cx from 11/10 NGTD :: Tissue Cx from 11/12 growing rare proteus mirabilis :: s/p tissue bx 11/12 with Dermatology Plan: - continue to follow BCx from [facility] -> micro lab -> blood Cx - [...] of low BPs :: normal TSH @ [facility] #Hypercalcemia, mild ::presented with CoCa 12.5; iCa [...] ::A1c and UA normal on admission at [facility] ::FeUrea 48.2% (>35=> suggestive of intrinsic renal disease) - Avoid nephrotoxic drug, hypotension, sepsis, dehydration - Continuing to encourage oral hydration and treat hypercalcemia #Bladder Calculi ::Incidentally noted on CT Pelvis from OSH, asymptomatic, max diam is 1.5 cm #Anemia :: Hgb 10.4 at [facility], Hgb 8.8 on admission, Hgb 7.7 today [...] and B12 levels ordered Isa Turner MD physician vice president, PGY-1 Cosigned by Claudio Plunkett MD [...] team: Gluteal abscess Payor: [employer] Discharge disposition: [facility] Potential Barriers: medical ADOD: 2-3 days Per MD, pending final culture results. Will continue to monitor for discharge planning needs. Updated notes sent to facility. Will continue to monitor for discharge planning needs. Julisa GARZA, heavy equipment supervisor Coordinator (TCC) [phone] Kevan La is a 49 y.o. male [...] patient please haiku or call id pager [phone] Sarah Caldwell, MS4 [employer] Infectious [...] on 11/14/2024 Exposure target: AUC24 (range)400-600 mg/L.hr [id number]: 477 mg/L.hr AUC24,ss: 476 mg/L.hr Probability of [...] clinical response, and signs/symptoms of toxicity. Alee Rios, PharmD [place] [address] Pharmacist Kevan La is a 49 y.o. [...] Intake/Output Summary (Last 24 hours) at 11/13/2024 0739 Last data filed at 11/13/2024 0357 Gross [...] clindamycin, rifampin, augmentin and doxycycline, transferred from [facility] regarding 14cm gluteal fluid collection. [...] ::Lactate 11/08: 1.2; 1.3 on 11/10 :: [facility]; Wound Cx were ordered, but not collected :: Last dose of Povorcitanib 10/10 :: WBC 11.1 :: Blood Cx from 11/10 NGTD :: Tissue Cx from 11/12 in progress, no organism seen on Gram stain :: s/p tissue bx 11/12 with Dermatology Plan: - continue to follow BCx from [facility] -> micro lab -> blood [...] of low BPs :: normal TSH @ [facility] #Hypercalcemia, mild ::presented with CoCa 12.5; iCa 1.69; PTH <6.3 ::25-OH vit D 79; 1.25-OH vit D 35.9 ::PTHrP, SPEP, urine Ca pending :: UPEP wnl ::TSH wnl at [facility] :: Endo following :: s/p pamidronate 90 mg IV 11/12/24 - follow SPEP, urine 24 hr Ca, PTHrP, 1.25-OH vit D levels - continue 200 ml/hr NS #Nicotine Use - Continue home Chantix #Subacute PARUL ::Cr ~1.6 on last admission, 1.48 on admission to [facility] 11/08 > 1.42, prior Cr in 03/2023 was 1.2; Cr 1.44 on presentation to ::On prior admission was evaluated for this with normal UA, CT with no hydronephrosis, felt to be 2/2 NSAID use for HS ::A1c and UA normal on admission at [facility] ::FeUrea 48.2% (>35=> suggestive of intrinsic renal disease) - Avoid nephrotoxic drug, hypotension, sepsis, dehydration - Continuing to encourage oral hydration and treat hypercalcemia #Bladder Calculi ::Incidentally noted on CT Pelvis from OSH, asymptomatic, max diam is 1.5 cm #Anemia :: Hgb 10.4 at [facility], Hgb 8.8 on admission, 8.3 today, stable :: 10/10/24: decr TIBC 218 and Fe 24; normal ferritin 259 :: Holding home PO iron iso possible infection - no evidence of bleeding, pt is HD stable (BPs are soft at baseline per pt), no tachycardia, no neurological changes - will maintain active type and screen Isa Turner MD physician vice president, PGY-1 Cosigned by Claudio Plunkett MD [...] & Treatment Patient Name: Kevan La Department: [place] [address] Room: [address] [place] [address] Today's Date: 11/12/2024 Time Calculation Start Time: [...] to (R) lean/propped on elbow. Outcome Measures: [facility] Basic Mobility Turning from your back to [...] Intake/Output Summary (Last 24 hours) at 11/12/2024 0516 Last data filed at 11/12/2024 0400 Gross [...] firm, but not rigid, non-tender : No [place] cath Extremities: No LE edema. R hip [...] 200 mL/hr, Last Rate: 200 mL/hr (11/11/248) PRN Medications PRN medications: naloxone, ondansetron, oxyCODONE, oxyCODONE, vancomycin Assessment/Plan Kevan La is a 49 y.o. male with refractory hidradenitis supprativa (HS) not responding to povorcitinib (RCT candidate), apremilast, isotretinoin, adalimumab, infliximab, moxifloxacin/metronidazole, minocyclin, clindamycin, rifampin, augmentin and doxycycline, transferred from [facility] regarding 14cm gluteal fluid collection. [...] ::Lactate 11/08: 1.2; 1.3 on 11/10 :: [facility] Blood Cx 11/08 NGTD; Wound Cx were ordered, but not collected :: Blood Cx from 11/10 NGTD :: -Last dose of Povorcitanib 10/10 :: WBC 11-> 11.5 Plan: - continue to follow BCx from [facility] [employer] -> micro lab -> blood Cx - [...] of low BPs :: normal TSH @ [facility] #Hypercalcemia, mild ::presented with CoCa 12.5; iCa 1.69; PTH <6.3 ::25-OH vit D 79 ::1.25-OH vit D, PTHrP, SPEP, urine Ca pending :: UPEP wnl ::TSH wnl at [facility] :: Endo following - follow SPEP, urine 24 hr Ca, PTHrP, 1.25-OH vit D levels - continue 200 ml/hr NS #Nicotine Use - Continue home Chantix #Subacute PARUL ::Cr ~1.6 on last admission, 1.48 on admission to [facility] 11/08 > 1.42, prior Cr in 03/2023 was 1.2; Cr 1.44 on presentation to ::On prior admission was evaluated for this with normal UA, CT with no hydronephrosis, felt to be 2/2 NSAID use for HS ::A1c and UA normal on admission at [facility] :: FeUrea 48.2% (>35=> suggestive of intrinsic renal disease) - Avoid nephrotoxic drug, hypotension, sepsis, dehydration - Continuing to encourage oral hydration and treat hypercalcemia #Bladder Calculi ::Incidentally noted on CT Pelvis from OSH, asymptomatic, max diam is 1.5 cm #Anemia :: Hgb 10.4 at [facility], Hgb 8.8 on admission, 8.3 today - no evidence of bleeding, pt is HD stable (Bps are soft at baseline per pt), no tachycardia, no neurological changes - will maintain active type and screen Isa Turner MD physician vice president, PGY-1 Cosigned by Claudio Plunkett MD [...] Name: Kevan La Today's Date: 11/11/2024 Room: [address] [place] [address] Time Calculation Start Time: 1234 Stop Time: [...] abscess General: Reason for Referral: returning to [facility] 11/10/2024 as a transfer from [facility] regarding 14cm gluteal fluid collection, concern of sepsis. Past Medical History Relevant to Rehab: refractory hidradenitis supprativa (HS); recently admitted to [facility] 10/11 - 10/23/2024 and underwent I&D on [...] Comments: pt is from [facility]. 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 Pt reports furniture walking at SNF. 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 male [...] clindamycin, rifampin, augmentin and doxycycline, transferred from [facility] regarding 14cm gluteal fluid collection. [...] improving. 11/11 Updates: - Blood Cx from [facility] x 2 days; tissue Cx was never collected @ [facility] - [facility] recommends no surgical intervention - awaiting further [...] ::Lactate 11/08: 1.2; 1.3 on 11/10 :: [facility]; Wound Cx were ordered, but not collected :: Blood Cx 11/10 NGTD Plan: - continue to follow BCx from [facility] [employer] -> micro lab -> blood Cx - [...] of low BPs :: normal TSH @ [facility] #Hypercalcemia, mild ::presented with CoCa 12.5; iCa 1.69; PTH <6.3 ::25-OH vit D 79 ::1.25-OH vit D, PTHrP, UPEP, SPEP, urine Ca pending ::TSH wnl at [facility] :: Endo following - follow UPEP, SPEP, urine 24 hr Ca, PTHrP, 1.25-OH vit D levels - continue 200 ml/hr NS #Nicotine Use - Continue home Chantix #Subacute PARUL ::Cr ~1.6 on last admission, 1.48 on admission to [facility] 11/08 > 1.42, prior Cr in 03/2023 was 1.2; Cr 1.44 on presentation to ::On prior admission was evaluated for this with normal UA, CT with no hydronephrosis, felt to be 2/2 NSAID use for HS ::A1c and UA normal on admission at [facility] :: FeUrea 48.2% (>35=> suggestive of intrinsic renal disease) - Avoid nephrotoxic drug, hypotension, sepsis, dehydration - Continuing to encourage oral hydration and treat hypercalcemia #Bladder Calculi ::Incidentally noted on CT Pelvis from OSH, asymptomatic, max diam is 1.5 cm #Anemia :: Hgb 10.4 at [facility], Hgb 8.8 on admission, 8.3 today - no evidence of bleeding, pt is HD stable (Bps are soft at baseline per pt), no tachycardia, no neurological changes - will maintain active type and screen Isa Turner MD physician vice president, PGY-1 Cosigned by Claudio Plunkett MD [...] team: Gluteal abscess Payor: [employer] Discharge disposition: [facility] Potential Barriers: none ADOD: 3-4 days Per MD, pending plans from [facility]. Updated notes sent to facility and requested update if patient will need precert to return. Will continue to monitor for discharge planning needs. Julisa GARZA, heavy equipment supervisor Coordinator (TCC) [phone] Pharmacy Admission Order Reconciliation Review Kevan La [...] team at any time. Ti Mays PharmD [facility] [address] [address] [facility], Room# [address] [place] [address] Please reach out via Secure Chat for questions, or if no response call [employer] or Confer Pharmacy Medication History Review Kevan La is a 49 y.o. male admitted for No Principal Problem: There is no principal problem currently on the Problem List. Please update the Problem List and refresh.. Pharmacy reviewed the patient's [id number] medications and allergies for accuracy. Medications ADDED Multivitamin Ibuprofen OTC 200 mg Ensure plus Medications CHANGED Miralax Medications REMOVED/NOT TAKING Alteplase 2 mg Leda-colace The list below reflects the updated DRAMA TEACHER list. Prior to Admission Medications Prescriptions Last [...] Pharmacy has been updated to Larry. Sources [facility] Pharmacy dispense history Patient interview Good historian Chart Review Discharge summary 10/23/24 Additional Comments N/A Ti Mays PharmD [facility] [address] [address] [facility], Room[address] [place] [address] Please reach out via Secure Chat for questions, or if no response call [employer] or Confer Vancomycin Dosing by Pharmacy- FOLLOW UP Kevan [...] on 11/12/2024 Exposure target: AUC24 (range)400-600 mg/L.hr IUD45-53: 500 mg/L.hr AUC24,ss: 488 mg/L.hr Probability of [...] Intake/Output Summary (Last 24 hours) at 11/10/2024 9805 Last data filed at 11/10/2024 0542 Gross [...] clindamycin, rifampin, augmentin and doxycycline, transferred from [facility] regarding 14cm gluteal fluid collection. [...] - Follow BCx and Wound Cx from [facility] [phone] micro lab - [facility] Surgery consulted - [...] of low BPs :: normal TSH @ [facility] #Hypercalcemia, mild ::CoCa 12.5; iCa 1.69; PTH <6.3 ::25-OH vit D 79 ::1.25-OH vit D, PTHrP, UPEP, SPEP, urine Ca pending ::TSH wnl at [facility] - 1 L NS bolus given this AM, 200 ml/hr NS - PM RFP - Endo consulted, appreciate recommendations #Nicotine Use - Continue home Chantix #Subacute PARUL ::Cr ~1.6 on last admission, 1.48 on admission to [facility] 11/08 > 1.42, prior Cr in 03/2023 was 1.2; Cr 1.44 on presentation to ::On prior admission was evaluated for this with normal UA, CT with no hydronephrosis, felt to be 2/2 NSAID use for HS ::A1c and UA normal on admission at [facility] - Avoid nephrotoxic drug, hypotension, sepsis, dehydration - Continuing to encourage oral hydration #Bladder Calculi ::Incidentally noted on CT Pelvis from OSH, asymptomatic, max diam is 1.5 cm #Anemia :: Hgb 10.4 at [facility], Hgb 8.8 on admission - no evidence of bleeding, pt is HD stable (Bps are soft at baseline per pt), no tachycardia - will maintain active type and screen Isa Turner MD physician vice president, PGY-1 Cosigned by Claudio Plunkett MD [...] Living Arrangements Other (Comment) (Pt is from [facility]. Prior to his SNF stay, pt lived at home with his dog.) Support Systems Family members Assistance Needed Await PT/OT recommendations. Pt was at SNF for IV atbs and wound care. Type of Residence long-term facility Do you have animals or pets at home? No (Pt sent his dog to stay with his brother in [place].) Home or Post Acute Services Post acute [...] were you homeless or living in a assisted (including now)? N Transportation Needs In the [...] Met with pt and introduced myself as nurse behavioral health care and member of the Care Transitions team for discharge planning. Pt was recently admitted from 10/10-10/23 for a gluteal abscess. Pt was discharged to [facility] (with pending Medicaid #[id number]) for IV atbs and wound care. [facility] if [facility] is needed at discharge. Pt is currently receiving IV atbs, await PT/OT evaluations. Referral was sent to [facility] for return via [facility]. Prior to his SNF stay, pt was living at home alone. 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 Pt's address, phone number and contact information was verified, pt's brother Omkar was added. Email sent to the insurance DL to verify if pt's Medicaid is active. Pt does not have any other questions/concerns at this time. Aida VELASQUEZ, RN- Transitional Community Health Coordinator (TCC) [phone] documented in this encounter [facility] Work Phone: 11-27-2024 Hospital Discharge instructions Danna Soares MD - 11/27/2024 12:16 PM EDT Discharge Instructions Dear Kevan La, You were admitted to [facility] for your worsening gluteal wound and concern [...] at this dosing [facility]. The supportive oncology doctors will see you once you leave [facility] and will continue prescribing these medicines at that time. 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 pharmacy to transfer over the prescriptions Appointments/Follow-Up: We have requested an automated system to call you to schedule; however if you do not hear from them in 3 days, please call [facility] appointment line: [phone] or to make the appointment yourself Dr. Jiang (oncology at [facility]) 11/29, 2:20pm Supportive oncology follow-up with Astrid Hawley on 12/17 at 1pm Please call and schedule appointment with your primary care doctor within 2 week, tell them that patient was recently admitted to the hospital. If you need to establish with new primary care doctor, please call and schedule an appointment with [facility]: phone: [phone] Lab work needed: No need to make appointment or have prescription. Please go to any labs to complete below None It was a pleasure taking care of you, Your Care Team documented in this encounter [facility] Work Phone: 11-26-2024 Miscellaneous Notes The patient's goals for the shift include The clinical goals for the shift include Pt. pain will be controlled this shift [id number] Over the shift, the patient's pain has [...] and discussed patient case with supportive oncology BINDER STRIPPER MACHINE, Omaira Clayton APRN and primary team. Patient with ongoing frequent PRN opioid requirements and suboptimally controlled pain. Plans for upcoming discharge. 24H Opioid Requirements Past 24h opioid requirements (11/24-11/25, [id number]): Fentanyl 50 mcg/h TD patch x 1 [...] PO nightly Some elements copied from Eugenia Lance note on 11/22/24, the elements have been updated and all reflect current decision making from today, 11/22/24 Disposition: Please start the process of having prior authorization with meds to beds deliver medications to patient prior to discharge via [facility] pharmacy. Prescriptions will need to be [...] SIGNATURE: Nellie Douglass PharmD Palliative Medicine Clinical Violin Tutor Supportive Oncology Services PAGER/CONTACT: Contact information: Supportive and Palliative Oncology Monday-Monday 8 AM-5 PM [employer] Secure chat or pager [phone]. After hours and weekends: pager [phone] Cosigned by TRAVIS Pinzon at 11/25/2024 1:08 [...] way of shared electronic medical record or [id number]. Medical complexity was high level due to due to complexity of problems, extensive data review, and high risk of management/treatment. I spent 15 minutes in the care of this patient which included chart review, interviewing patient/family, discussion with primary team, coordination of care, and documentation. TRAVIS Pinzon PATIENT: KEVAN LA : 1975 ADMIT DATE: 11/10/2024 3:29 AM DISCH DATE: RESPONDING PROVIDER #: [id number] PROVIDER RESPONSE TEXT: 11/15 punch biopsy taken [...] 3:29 AM DISCH DATE: RESPONDING PROVIDER #: [id number] PROVIDER RESPONSE TEXT: Anemia of chronic disease [...] unresponsive to multiple treatments was transferred from [facility] due to gluteal abscess, for [...] MD Hematology-Oncology Fellow, PGY4 Hematology Consult Pager: [phone] Problem: Skin Goal: Decreased wound size/increased tissue [...] man with refractory hidradenitis supprativa transferred from [facility] on 11/10/24 with worsening chronic [...] by Lily Mario RN Outcome: Progressing 11/17/2024 1816 by Lily Mario RN Flowsheets (Taken 11/17/2024 1816) Decreased wound size/increased tissue granulation at next dressing change: Promote sleep for wound healing 11/17/20241814 by Lily Mario RN Outcome: Progressing Goal: Participates in plan/prevention/treatment measures 11/18/2024 0752 by Lily Mario RN Outcome: Progressing 11/17/20241814 by Lily Mario RN Outcome: Progressing Goal: Prevent/manage excess moisture 11/18/2024 0752 by Lily Mario RN Outcome: Progressing 11/17/20241814 by Lily Mario RN Outcome: Progressing Goal: Prevent/minimize sheer/friction injuries 11/18/2024 0752 by Lily Mario RN Outcome: Progressing 11/17/20241814 by Lily Mario RN Outcome: Progressing Goal: Promote/optimize nutrition 11/18/2024 0752 by Lily Mario RN Outcome: Progressing 11/17/20241814 by Lily Mario RN Outcome: Progressing Goal: Promote skin healing 11/18/2024 0754 by Lily Mario RN Flowsheets (Taken 11/18/2024 0754) Promote skin healing: Protective dressings over bony prominences 11/18/2024 0752 by Lily Mario RN Outcome: [...] Progressing Goal: Participates in plan/prevention/treatment measures 11/18/2024 0752 by Lily aMrio RN Outcome: Progressing 11/17/2024 181 by Lily Mario RN Outcome: Progressing Goal: Prevent/manage excess moisture 11/18/2024 0752 by Lily Mario RN Outcome: Progressing 11/17/20241814 by Lily Mario RN Outcome: Progressing Goal: Prevent/minimize sheer/friction injuries 11/18/2024 0752 by Lily Mario RN Outcome: [...] injury from fall in the home 11/18/2024 075 by Lily Mario RN Outcome: Progressing 11/17/20241814 by Lily Mario RN Outcome: Progressing Goal: Use assistive devices by end of the shift 11/18/2024 0752 by Lily Mario RN Outcome: Progressing 11/17/20241814 by Lily Mario RN Outcome: Progressing Goal: Pace activities to prevent fatigue by end of the shift 11/18/2024 075 by Lily Mario [...] to pain meds throughout the shift 11/18/2024 075 by Lily [...] and Palliative Oncology Monday-Monday 8 AM-5 PM [employer] Secure chat or pager [phone]. After hours and weekends: pager [phone] Brief heme note: Kevan La is a 49 y.o. male with PMHx of HS that is refractory and unresponsive to multiple treatments was transferred from [facility] due to gluteal abscess, for [...] MD Hematology-Oncology Fellow, PGY4 Hematology Consult Pager: [phone] Cosigned by Fransisca Diaz MD at 11/16/2024 [...] Rapid Response Pager time: [phone] Arrival time: 1650 Event end time: 1800 Location: [address] [] Triage by phone or secure messaging Rapid response initiated by: [] Rapid response RN [] Family [] Nursing Company Marker [x] Physician [] RADAR auto page [] Sepsis auto-page [x] RN [] RT [] BINDER STRIPPER MACHINE/PA [] Other: Primary reason for call: [] [...] arrival to unit, Bedside RN, DACR, & Shanti Team @bedside. Patient was a Rapid Response [...] Response Nurse Note: Rapid Response Pager time: [phone] Arrival time: 1509 Event end time: 1529 Location: [address] [] Triage by phone or secure messaging Rapid response initiated by: [] Rapid response RN [] Family [] Nursing Company Marker [] Physician [] RADAR auto page [] Sepsis auto-page [x] RN [] RT [] BINDER STRIPPER MACHINE/PA [] Other: Primary reason for call: [] [...] Ryland Win, PGY3 For IR consults, call [phone] (M-F 7a-5p) EMERGENT IR Pager: [phone] (M-F 5p-7a) ([place], [place] 24hr) PATIENT: KEVAN LA : 1975 ADMIT DATE: 11/10/2024 3:29 AM DISCH DATE: RESPONDING PROVIDER #: [id number] PROVIDER RESPONSE TEXT: I agree with white shoe ragger diagnosis of Moderate malnutrition on 11/11/2024 CDI [...] suppurativa and gluteal abscess. Clinical Indicators: 11/11 Cadastral Surveyor consult: "Moderate malnutrition related to acute disease or injury As Evidenced by: meeting < 75% of EER for > 1 week, mild fat loss and muscle wasting and 10.2% weight loss x approximately 3 weeks." 11/11 white shoe ragger note indicates pt eating poorly at SNF due to poor food quality and receives protein drink only intermittently. BMI 25.93 Treatment: Cadastral Surveyor consult recommending regular diet, Ensure Plus QD. Risk Factors: Refractory HS. Gluteal abscess. Eating poorly at SNF. Options provided: -- I agree with white shoe ragger diagnosis of Moderate malnutrition on 11/11/2024 -- [...] RN Outcome: Progressing 11/12/2024 1051 by Cinthya Franklin, RN Outcome: Progressing 11/12/2024 1045 by Cinthya [...] MD PGY-1 General Surgery Acute Care Surgery [id number] The patient's goals for the shift include [...] excess moisture Outcome: Progressing Flowsheets (Taken 11/11/2024 012) Prevent/manage excess moisture: Moisturize dry skin Goal: [...] Outcome: Progressing Goal: Participates in plan/prevention/treatment measures 11/10/2024 09 by Soheila Oscar RN Outcome: Progressing 11/10/2024 09 by Soheila Oscar RN Outcome: Progressing Goal: Prevent/manage excess moisture 11/10/2024 09 by Soheila Oscar RN Outcome: Progressing 11/10/2024911 by Soheila Oscar RN Outcome: Progressing Goal: Prevent/minimize sheer/friction injuries 11/10/2024 09 by Soheila Oscar RN Outcome: Progressing 11/10/2024911 by Soheila Oscar RN Outcome: Progressing Goal: Promote/optimize nutrition 11/10/2024912 by Soheila Oscar RN Outcome: Progressing 11/10/2024 09 by Soheila Oscar RN Outcome: Progressing Goal: Promote skin healing 11/10/2024 09 by Soheila Oscar RN Outcome: Progressing 11/10/2024911 by Soheila Oscar RN Outcome: Progressing Problem: Fall/Injury Goal: Not fall by end of shift 11/10/2024 09 by Soheila Oscar RN [...] 0912 by Soheila Oscar RN Outcome: Progressing Goal: Free from opioid side effects throughout the shift 11/10/2024 0913 by Soheila Oscar RN Outcome: Progressing 11/10/2024 09 by Soheila Oscar RN Outcome: Progressing Goal: Free from acute confusion related to pain meds throughout the shift 11/10/2024 0913 by Soheila Oscar RN Outcome: Progressing 11/10/2024911 by Soheila Oscar RN Outcome: Progressing The clinical goals for the shift include pt will remian free from injury throughout shift documented in this encounter [facility] Work Phone: 11-26-2024 Nurse Note [...] controlled. Beata NEWTON documented in this encounter [facility] Work Phone: 11-22-2024 Consult note [...] molecule JAK1 inhibitor), who was transferred from [facility] for a worsening of L gluteal wound [...] Vashe wound cleanser ([employer] order # [id number]). Pack with Vashe moistened wet to dry kerlix gauze cover with ABD pad and paper tape. Recommendation: BID for distal edge of growth on distal posterior left thigh. Cover wounds with Vashe wound cleanser ([employer] order #[id number]) soaked 4 x 4 cm sterile gauze for 1-5 minutes, then gently pat dry. Cover draining wounds with 2-3 layers of accordion folded Aquacel Ag then cover with ABD pad and paper tape. (DO not cover growth as it causes the patient discomfort. Recommendations: BID for left lateral hip. Cover wounds with Vashe wound cleanser ([employer] order #[id number]) soaked 4 x 4 cm sterile gauze for 1-5 minutes, then gently pat dry. Apply clindamycin as directed by dermatology. Cover draining wounds with Aquacel Ag (Silver) ([employer] order #[id number]) Cover with Mepilex border dressing. Wound Team Plan: While inpatient, Secure chat with questions or reconsult wound care if condition worsens or changes. For urgent communications please message the group through [employer] at: [facility] [place], Thank you. Lori Baires [...] tentatively arrange follow-up with Dr. Jiang at [facility] [place], pending transport capabilities of eventual SNF - [...] MD Hematology-Oncology Fellow, PGY5 Hematology Consult Pager: [phone] Oncology Consult Pager: [phone] Cosigned by Sreedhar Jiang MD at 11/19/2024 [...] continue his care with our team ([place]- md, [facility] [place], [place]- Dr. Valentino). Associated Order(s): Inpatient consult to Integrative Hem/Onc Inpatient consult to Integrative Hem/Onc Consult performed by: Cristiana Evans APRN-NEHAL Consult ordered by: Lynette Segovia APRN-NEHAL Reason For Consult Symptom management History Of [...] integrative heme/onc services. Music therapy, art therapy, nurse charge rn and pet therapy offered to pt, pt [...] 11/08/2024 [facility] 1975 [id number] Exam Date/Time: 11/08/2024 16:38 Procedure: CT PELVIS [...] extremity venous duplex bilateral Result Date: 10/21/2024 [place] [id number] and Vascular Lab Report VASC US LOWER EXTREMITY VENOUS DUPLEX BILATERAL Patient Name: KEVAN LA Reading Physician: [id number] Colin MD Study Date: 10/21/2024 Ordering [id number] FIRAS R Physician: THELMA MRN/PID: [id number] Technologist: Javier Dhaliwal RVT Technologist 2: Date of /Age: 9 1975 years Gender: M Admission Status: Inpatient Location [facility] Performed: Diagnosis/ICD: Pain in left leg-M79.605 CPT Codes: 58135 Peripheral venous duplex scan for DVT complete [...] Spontaneous/Phasic Peroneal Yes None PTV Yes None [id number] Viki Colin MD Final Bedside PICC Imaging [...] anxiety, fatigue, nausea, depression and pain. [facility] Integrative Medicine Symptom Management program offers multi-disciplinary [...] -Music therapy - pt agreeable; consult placed -Manager Cafe - pt agreeable; consult placed -Pet therapy [...] of this patient. TRAVIS Patel (available by [employer]) [facility] Inpatient Integrative Medicine I spent 45 minutes [...] medications to patient prior to discharge via [facility] pharmacy. Prescriptions will need to be sent 48-72 hours prior to discharge so that a prior authorization can be completed. Discharge date: unknown pending acute issues Patient does not qualify for an appointment with Outpatient Supportive Oncology- needs to establish with Oncology outpatient SIGNATURE: TRAVIS Rodas PAGER/CONTACT: Contact information: Supportive and Palliative Oncology Monday-Monday 8 AM-5 PM [employer] Secure chat or pager [phone]. After hours and weekends: pager [phone] Inpatient consult to [facility] Adult Supportive Oncology Consult performed by: Lynette Segovia, PERFORATOR-SHAREPOINT SPECIALIST Consult ordered by: Claudio Plunkett MD PALLIATIVE MEDICINE OUTPATIENT PROVIDER: None CURRENT ATTENDING PROVIDER: Claudio Plunkett MD Medical Oncologist: No care hospice team lead to display Radiation Oncologist: No care hospice team lead to display Primary Physician: No primary care [...] alone. Has supportive brother and parents in [place], [place]. 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 Social History: reports that he [...] QT Interval 368 QTC Calculation(Bazett) 416 P [place] 55 R [place] 72 T [place] 66 QRS Count 13 Q Onset 211 [...] limitations due to pain Joys/meaning/strength: Family and [place] Understanding of health: Demonstrates good prognostic understanding [...] of shared electronic medical record/secure chat/email or [id number]. We will continue to follow. Please contact us for additional questions or concerns. SIGNATURE: TRAVIS Rodas PAGER/CONTACT: Contact information: Supportive and Palliative Oncology Monday-Monday 8 AM-5 PM [employer] Secure chat or pager [phone]. After hours and weekends: pager [phone] Associated Order(s): IP CONSULT TO HEMATOLOGY Name: [...] unresponsive to multiple treatments was transferred from [facility] due to gluteal abscess, for [...] Perry Baires 10/10/2024 5:20 PM Dictation workstation: [id number] === 10/10/24 === CT PELVIS W IV [...] as stated. This study was interpreted at [facility], [place], [place] Signed by: Beronica Valentin 10/10/2024 11:03 PM Dictation workstation: [id number] Assessment/Plan Kevan La is a 49 y.o. male with PMHx of refractory HS that is unresponsive to multiple treatments was transferred from [facility] due to left gluteal randell [...] MD Hematology-Oncology Fellow, PGY4 Hematology Consult Pager: [phone] Cosigned by Fransisca Diaz MD at 11/15/2024 [...] Patient was then brought from SNF to [facility] on 11/08 due to concern for worsening L buttock and gluteal HS and possible sepsis. Patient was placed on vanc/zosyn for sepsis; wound and blood cx collected at that time show NGTD. CT scan from [facility] revealed large ulcerative wound in left buttock [...] 200 mL/hr, Last Rate: 200 mL/hr (11/11/24 3978) sodium chloride 0.9%, 200 mL/hr PRN medications [...] consulting IR to evaluate abscess drainage Sarah Caldwell MS4 Reviewed by Mohan Sales Infectious Diseases [...] molecule JAK1 inhibitor), who was transferred from [facility] for a worsening of L gluteal wound [...] Vashe wound cleanser ([employer] order # [id number]). Pack with Vashe moistened wet to dry kerlix gauze cover with ABD pad and paper tape. 11/11/24 1700 Wound 09/13/24 Other (comment) Buttock Left Date First Assessed/Time First Assessed: 09/13/245 Present on Original Admission: Yes Hand Hygiene [...] with Vashe wound cleanser ([employer] order #[id number]) soaked 4 x 4 cm sterile gauze for 1-5 minutes, then gently pat dry. Cover draining wounds with 2-3 layers of accordion folded Aquacel Ag then cover with ABD pad and paper tape. (DO not cover growth as it causes the patient discomfort. Wound location: Lateral Left hip Recommendations: BID Cover wounds with Vashe wound cleanser ([employer] order #[id number]) soaked 4 x 4 cm sterile gauze for 1-5 minutes, then gently pat dry. Apply clindamycin as directed by dermatology. Cover draining wounds with Aquacel Ag (Silver) ([facility] [employer] order #[id number]) Cover with Mepilex border dressing. Wound Team [...] molecule JAK1 inhibitor), who was transferred from [facility] for a worsening of L gluteal wound [...] Per IM notes: Patient last admitted at [facility] 10/11 - 10/23/2024 for a similar complaint [...] cultures later resulted with staph hominis maryia roxannemohindera on 10/16 and ID was consulted with plan to continue Unasyn until 10/28/2024. He was discharged with PICC line to SNF with plan to follow-up with Dermatology 11/12/2024 for HS-301 trial medication. On 11/08/2024 the patient was sent to [facility] from [facility] for possible sepsis. On arrival to the [...] his stay and he was transferred to [facility] for further care. The patient was seen [...] He was able to tolerate food at [facility]. Patient notes he has been bedbound for some time now, since at least 06/2023 which he attributes to weakness in his legs/feet." HS history: He reports a history of HS from 2015. Previous therapies include doxycycline, minocycline, isotretinoin, clindamycin/rifampin, Humira, Remicade, staph decolonization for mupirocin, moxifloxacin/metronidazole, and apremilast. He was being treated by [facility]. Pt reports that he has been [...] 200 mL/hr, Last Rate: 200 mL/hr (11/11/24 9749) PRN medications PRN medications: naloxone, ondansetron, oxyCODONE, [...] cultures. Will follow cultures already obtained at [facility] and will obtain tissue culture 11/12/24. - [...] of left gluteal disease. Pt transferred from [facility] with worsened pain, swelling and drainage from [...] last 7 days Lab Units 11/11/24 0911/10/24 0529 GLUCOSE mg/dL 101* 103* CALCIUM mg/dL [...] , Vit B12: No results found for: [id number] Nutrition Specific Medications: Scheduled medications acetaminophen, 975 [...] Order(s): IP CONSULT TO ACUTE CARE SURGERY [facility] ACUTE CARE SURGERY - HISTORY AND PHYSICAL / CONSULT Patient Name: Kevan La Admit Date: [id number] : 1975 AGE: 49 y.o. GENDER: male TODAY'S ASSESSMENT AND PLAN OF CARE: 49 year old male with significant history of hidradenitis suppurativa, who recently underwent I&D with acute care surgery on 10/13, was transferred from [facility] with concern of a gluteal fluid collection. Acute care surgery was consulted for consideration of repeat I&D. Patient is currently hemodynamically stable. - No emergent surgical intervention indicated at this time. Will need to review imaging for possible mass vs infection before potential surgical intervention. Radiology imaging request sent for CT pelvis from [facility]. if not able to transfer imaging from [facility], may need repeat CT scan. Tadeo Cano MD PGY 5 General Surgery Acute Care Surgery [id number] CHIEF COMPLAINT/REASON FOR CONSULT: 49 year old male with significant history of hidradenitis suppurativa, who recently underwent I&D with acute care surgery on 10/13, was transferred from [facility] with concern of a gluteal fluid collection. Acute care surgery was consulted for consideration of repeat I&D. Briefly this patient has a history of refractory HS and did not respond to multiple lines of treatment. He was [place] [facility] [place] 10[place]10/23 and underwent I&D on 10/13 for infection control. He had positive blood culture and was on antibiotics. He was eventually discharged to [facility]. On 11/08 patient was brought to [facility] for concern of sepsis. He was started [...] Need to review most recent CT from [facility] for comparison, radiology request sent. LABS: Results [...] of left gluteal disease. Pt transferred from [facility] with worsened pain, swelling and drainage from [...] notable for wbc 11.8. CT report from [facility] notes concern for a 15cm enhancing gluteal mass however images not available. We have requested images from [facility] and will evaluate these prior to determining whether further drainage or biopsy are needed. Eitan Muhammad MD Trauma, Critical Care, and Acute Care Surgery Pager: [phone] Associated Order(s): Inpatient consult to Endocrinology Inpatient consult to Endocrinology Consult performed by: Whit Griffith MD Consult ordered by: Claudio Plunkett MD Reason For Consult Hypercalcemia History Of Present Illness 49 y.o. patient with refractory hidradenitis supprativa (HS) not responding to povorcitinib (RCT candidate), apremilast, isotretinoin, adalimumab, infliximab, moxifloxacin/metronidazole, minocyclin, clindamycin, rifampin, augmentin and doxycycline, subacute PARUL? 2/ NSAIDs use for HS?, returning to [facility] 11/10/2024 as a transfer from [facility] regarding 14cm gluteal fluid collection. Notably the patient was recently admitted to [facility] 10/11 - 10/23/2024 for a similar complaint, imaging showed showed worsening infection in L. gluteus randell with serpiginous fluid pockets c/w abscess (9.2 x 5.7 x 13.2cm). He was started on broad spectrum iv antibiotics , underwent I&D with ACS on 10/13 c/b arterial bleed which was stitched. He was discharged with PICC line to [facility] with plan to follow-up with Dermatology 11/12/2024 for HS-301 trial medication. On 11/08/2024 the patient was sent to [facility] from [facility] for possible sepsis. On arrival to the [...] his stay and he was transferred to [facility] for further care. The patient was seen [...] He was able to tolerate food at [facility]. Patient notes he has been bedbound for [...] weeks since he was [facility] to [facility] Denies any chest pain, shortness of breath, [...] was not receiving any PT at the [facility]. He also mentioned that his activity level [...] 2/2 NSAIDs use for HS?, returning to [facility] 11/10/2024 as a transfer from [facility] regarding 14cm gluteal fluid collection. [...] MD Endocrinology fellow, PGY 5 Endocrinology pager [phone], secure message 8 AM to 5 PM. [...] on 11/10/2024 Exposure target: AUC24 (range)400-600 mg/L.hr [id number]: 380 mg/L.hr AUC24,ss: 507 mg/L.hr Probability of AUC24 > 400: 76 % Follow-up level tomorrow morning. Will continue to monitor renal function daily while on vancomycin and order serum creatinine at least every 48 hours if not already ordered. Follow for continued vancomycin needs, clinical response, and signs/symptoms of toxicity. Long Swain PharmD documented in this encounter [facility] Work Phone: 11-15-2024 Procedure note Associated Ord er(s): Biopsy Post-Procedure Diagnose(s): Skin lesion Biopsy Date/Time: 11/15/2024 11:31 AM Performed by: Brigitte Coy MD Authorized by: Lauri Mesa MD Consent: Consent obtained: Verbal Consent given by: Patient Risks, benefits, and alternatives were discussed: yes Risks discussed: Bleeding, infection, pain and poor cosmetic result Alternatives discussed: No treatment [place] protocol: Procedure explained and questions answered to [...] poor cosmetic result Alternatives discussed: No treatment [place] protocol: Procedure explained and questions answered to [...] Lauri Mesa MD documented in this encounter [facility] Work Phone: 11-10-2024 History and physical note History Of Present Illness Kevan La is a 49 y.o. male with refractory hidradenitis supprativa (HS) not responding to povorcitinib (RCT candidate), apremilast, isotretinoin, adalimumab, infliximab, moxifloxacin/metronidazole, minocyclin, clindamycin, rifampin, augmentin and doxycycline, returning to [facility] 11/10/2024 as a transfer from [facility] regarding 14cm gluteal fluid collection. Notably the patient was recently admitted to [facility] 10/11 - 10/23/2024 for a similar complaint [...] He was discharged with PICC line to SNF with plan to follow-up with Dermatology 11/12/2024 for HS-301 trial medication. On 11/08/2024 the patient was sent to [facility] from [facility] for possible sepsis. On arrival to the [...] his stay and he was transferred to [facility] for further care. The patient was seen at the bedside this evening at which time he states he was doing largely the same at the [facility] but two days prior to his presentation [...] He was able to tolerate food at [facility]. Patient notes he has been bedbound for [...] Alb 2.5 A1c 11/08/2024: 5.2 UA 11/08/2024: [place] CT Pelvis 11/08/2024: There is a large [...] Bacteria 10/10/24 Blood culture from Peripheral Venipuncture Slacynthiaia exigua S S S S S 10/10/24 [...] clindamycin, rifampin, augmentin and doxycycline, returning to [facility] 11/10/2024 as a transfer from [facility] regarding 14cm gluteal fluid collection. [...] on last admission, 1.48 on admission to [facility] 11/08 > 1.42, prior Cr in 03/2023 [...] Continue with antibiotics. documented in this encounter [facility] Work Phone: 11-09-2024 Note Internal [...] a 49 y.o. male that presented to [facility] on 11/08/2024 and was admitted for wound check. Patient arrived to [facility] from [facility] fro possible sepsis related to chronic hidradenitis [...] here. Decision was to transfer patient to [facility] for further care. Of note, [...] to Address at Followup Visit: Not Applicable [facility] 11-09-2024 Hospital course Narrative Internal Medicine: [...] a 49 y.o. male that presented to [facility] on 11/08/2024 and was admitted for wound check. Patient arrived to [facility] from [facility] fro possible sepsis related to chronic hidradenitis [...] here. Decision was to transfer patient to [facility] for further care. Of note, [...] 9:40 PM EST documented in this encounter [facility] 02-22-2025 Nurse Note transfer center called, stated still no bed are available but checking on if any changes in pt condition. Updated vitals given and isolation status confirmed. Enrique at the transfer center given unit phone number and he stated they will reach out when bed available. [facility] 11-09-2024 Nurse Note transfer center called, stated still no bed are available but checking on if any changes in pt condition. Updated vitals given and isolation status confirmed. Enrique at the transfer center given unit phone number and he stated they will reach out when bed available. documented in this encounter [facility] 11-09-2024 Plan of care note [...] My discharge needs are met Outcome: Progressing [facility] 11-09-2024 Miscellaneous Notes Problem: Knowledge [...] met Outcome: Progressing documented in this encounter [facility] 11-09-2024 History of Present illness [...] creatinine, and vancomycin levels interfaced automatically to [employer] and data has been analyzed and interpreted. [...] review patient will be transferred to [facility] for further care, currently waiting for bed [...] 16.4* ABGs: No results for input(s): "PHART", "KTQ7YDK", "PO2ART", "IQM1QET", "SO2ART", "Y4RUFNQD" in the last 72 hours. Lactic Acid: [...] Discharge: patient will be transferred to [facility] for further care, currently waiting for bed assignment. Patient has been receiving care at including clinical trial medications for his hidradenitis suppurativa. - Goals of Care: FULL CODE - DVT Prophylaxis: Lovenox 40 q24hr - CrCl >30 - GI Prophylaxis: Protonix daily - Diet: NPO Cosigned by Paulino Larios MD at 11/09/2024 1:50 PM EST documented in this encounter [facility] 11-09-2024 Note Pharmacy to Dose Van comycin - Progress Note Lab Results Component Value Date CREATININE 1.42 (H) 11/09/2024 BUN 19 11/09/2024 WBC 13.0 (H) 11/09/2024 Doses, serum creatinine, and vancomycin levels interfaced automatically to [employer] and data has been analyzed and interpreted. [...] DATE: 11/09/24 TIME: 8:58 AM Kristy Ferguson [facility] Clinical Pharmacist Available via Secure [employer] [facility] 11-09-2024 Note Med Team Progress Amaya saleh Kevan La : 1975(49 y.o.) Date: November [...] review patient will be transferred to [facility] for further care, currently waiting for bed [...] 16.4* ABGs: No results for input(s): "PHART", "PKZ4MMO", "PO2ART", "RPZ5OWF", "SO2ART", "D3VIOYEN" in the last 72 hours. Lactic Acid: [...] count of 634 (more content not included)... [facility] 11-09-2024 Emergency department Note This RN spoke to Enrique at [facility] for patient update. He stated that they are currently waiting for a bed assignment for the patient at [facility]. [facility] 11-09-2024 Emergency department Note This RN spoke to Enrique at [facility] for patient update. He stated that they are currently waiting for a bed assignment for the patient at [facility]. Provider messaged about BP and MAP Provider [...] Resource Strain: Medium Risk (10/12/2024) Received from [facility] Overall Financial Resource Strain (CARDIA) Difficulty of Paying Living Expenses: Somewhat hard Food Insecurity: Food Insecurity Present (10/11/2024) Received from [facility] Hunger Vital Sign Worried About Running Out of Food in the Last Year: Sometimes true Ran Out of Food in the Last Year: Sometimes true Transportation Needs: No Transportation Needs (10/12/2024) Received from [facility] PRAPARE - Transportation Lack of Transportation (Medical): No Lack of Transportation (Non-Medical): No Intimate Partner Violence: Not At Risk (10/11/2024) Received from [facility] Humiliation, Afraid, Rape, and Kick questionnaire Fear of Current or Ex-Partner: No Emotionally Abused: No Physically Abused: No Sexually Abused: No Housing Stability: Low Risk (10/12/2024) Received from [facility] Housing Stability Vital Sign Unable to Pay for Housing in the Last Year: No Number of Times Moved in the Last Year: 1 Homeless in the Last Year: No Recent Concern: Housing Stability - High Risk (09/17/2024) Received from [facility] Housing Stability Vital Sign Unable [...] Procedure Abnormality Status --------- ------ Culture, Aerobic Bacteri...[[id number]] Anaerobic culture[[id number]] Please view results for these tests on the individual orders. CULTURE, AEROBIC BACTERIA WITH GRAM STAIN CULTURE ANAEROBIC CBC WITH AUTO DIFFERENTIAL COMPREHENSIVE METABOLIC PANEL LACTIC ACID WITH REFLEX COMPLETE URINALYSIS WITH REFLEX TO CULTURE Narrative: The following orders were created for panel order Urinalysis Complete with reflex to Culture. Procedure Abnormality Status --------- ------ Complete Urinalysis[[id number]] Please view results for these tests on [...] Medicine Provider Juvenal Fierro MD Resident 11/08/24 5333 Cosigned by Fer Kennedy MD at 11/08/2024 6:55 PM EST Emergency Department Encounter [facility] EMERGENCY DEPT Patient: Kevan La : [...] pressure and wound check. [facility]. Patient has chronic refractory [...] for clarification.) Fer Kennedy MD Acute Care [facility] Fer Kennedy MD 11/08/24 2281 documented in this encounter [facility] 11-08-2024 Consult note Formatting of [...] creatinine, and vancomycin levels interfaced automatically to [employer] and data has been analyzed and interpreted. [...] PharmD Clinical Pharmacist Available via Secure Chat [facility] 11-08-2024 Consult note Formatting of th [...] creatinine, and vancomycin levels interfaced automatically to [employer] and data has been analyzed and interpreted. [...] via Secure Chat documented in this encounter [facility] 11-08-2024 Emergency department Note Provider messaged about BP and MAP [facility] 11-08-2024 Emergency department Note Provider messaged about orders [facility] 11-08-2024 History and physical note Internal Medicine: Med Team Initial History and Physical Kevan La : 1975(49 y.o.) Date: November 08, 2024 TEAM: Isidro Attending: Dr. Larios Subjective: Chief Complaint: Wound Check HPI Kevan La is a 49 y.o. male with PMH chronic hidradenitis suppurativa that presented to [facility] on 11/08/2024 from [facility]. Patient was seen at for severe at [...] follow-up with dermatology 11/12/2024. Patient arrived to [facility] ED from [facility] for possible sepsis related to chronic hidradenitis affecting mostly his left hip and going down into his left thigh. At [facility] nurse noted that his wounds were draining [...] 16.5* ABGs: No results for input(s): "PHART", "DRW2SHL", "PO2ART", "NPT9DWO", "SO2ART", "G5SILZEP" in the last 72 hours. Lactic Acid: [...] nowOverweight (BMI 25-29.9) - Disposition: Admit to [facility]. - Given the signs and symptoms [...] care. - he is well-known at in [place], and they will accept transfer of the pt when a bed is available. [facility] 11-08-2024 Note Attestation signed by [...] care. - he is well-known at in [place], and they will accept transfer of the pt when a bed is available. Internal Medicine: Med Team Initial History and Physical Kevan La : 1975(49 y.o.) Date: November 08, 2024 TEAM: Isidro Attending: Dr. Larios Subjective: Chief Complaint: Wound Check HPI Kevan La is a 49 y.o. male with PMH chronic hidradenitis suppurativa that presented to [facility] on 11/08/2024 from [facility]. Patient was seen at for severe at [...] follow-up with dermatology 11/12/2024. Patient arrived to [facility] ED from [facility] for possible sepsis related to chronic hidradenitis affecting mostly his left hip and going down into his left thigh. At [facility] nurse noted that his wounds were draining [...] 1900 BP: 76/ (more content not included)... [facility] 11-08-2024 History and physical note Internal Medicine: Med Team Initial History and Physical Kevan La : 1975(49 y.o.) Date: November 08, 2024 TEAM: Isidro Attending: Dr. Larios Subjective: Chief Complaint: Wound Check HPI Kevan La is a 49 y.o. male with PMH chronic hidradenitis suppurativa that presented to [facility] on 11/08/2024 from SNF. Patient was seen at for severe at [...] follow-up with dermatology 11/12/2024. Patient arrived to [facility] ED from [facility] for possible sepsis related to chronic hidradenitis affecting mostly his left hip and going down into his left thigh. At [facility] nurse noted that his wounds were draining [...] 16.5* ABGs: No results for input(s): "PHART", "DYY7DKN", "PO2ART", "PDR2ZMN", "SO2ART", "I6TGEQWY" in the last 72 hours. Lactic Acid: [...] nowOverweight (BMI 25-29.9) - Disposition: Admit to [facility]. - Given the signs and symptoms [...] care. - he is well-known at in [place], and they will accept transfer of the pt when a bed is available. documented in this encounter [facility] 11-08-2024 Emergency department Note Patient requested pain medication and dinner. This nurse messaged provider [facility] 11-08-2024 Emergency department Note Patient is aware of patients BP and MAP. [facility] 11-08-2024 Emergency department Note Liter of NS hung for systolic of 88. IV obtained with blood work and first set of cultures. Will notify doctor of BP. [facility] 11-08-2024 Physician Emergency department Note EMERGENCY [...] Resource Strain: Medium Risk (10/12/2024) Received from [facility] Overall Financial Resource Strain (CARDIA) Difficulty of Paying Living Expenses: Somewhat hard Food Insecurity: Food Insecurity Present (10/11/2024) Received from [facility] Hunger Vital Sign Worried About Running Out of Food in the Last Year: Sometimes true Ran Out of Food in the Last Year: Sometimes true Transportation Needs: No Transportation Needs (10/12/2024) Received from [facility] PRAPARE - Transportation Lack of Transportation (Medical): No Lack of Transportation (Non-Medical): No Intimate Partner Violence: Not At Risk (10/11/2024) Received from [facility] Humiliation, Afraid, Rape, and Kick questionnaire Fear of Current or Ex-Partner: No Emotionally Abused: No Physically Abused: No Sexually Abused: No Housing Stability: Low Risk (10/12/2024) Received from [facility] Housing Stability Vital Sign Unable to Pay for Housing in the Last Year: No Number of Times Moved in the Last Year: 1 Homeless in the Last Year: No Recent Concern: Housing Stability - High Risk (09/17/2024) Received from [facility] Housing Stability Vital Sign Unable [...] Procedure Abnormality Status --------- ------ Culture, Aerobic Bacteri...[[id number]] Anaerobic culture[[id number]] Please view results for these tests on the individual orders. CULTURE, AEROBIC BACTERIA WITH GRAM STAIN CULTURE ANAEROBIC CBC WITH AUTO DIFFERENTIAL COMPREHENSIVE METABOLIC PANEL LACTIC ACID WITH REFLEX COMPLETE URINALYSIS WITH REFLEX TO CULTURE Narrative: The following orders were created for panel order Urinalysis Complete with reflex to Culture. Procedure Abnormality Status --------- ------ Complete Urinalysis[[id number]] Please view results for these tests on [...] Medicine Provider Juvenal Fierro MD Resident 11/08/24 0845 Cosigned by Fer Kennedy MD at 11/08/2024 6:55 PM EST [facility] [facility] Work Phone: 11-08-2024 Physician Emergency department Note Emergency Department Encounter [facility] EMERGENCY DEPT Patient: Kevan La : [...] pressure and wound check. [facility]. Patient has chronic refractory [...] for clarification.) Fer Kennedy MD Acute Care [facility] Fer Kennedy MD 11/08/24 1654 [employer] Phone: 10-23-2024 Nurse Note Transport forgot paper chart- all chart information, [facility] fax #[phone] ATTENTION : NURSE MAGNUS This nurse called report to Magnus [facility]. Patient leaving with PICC in place in [facility] dated 10/20/24. Script for pain medications [...] chills and HR was 140. Resident Brenda Elder- Milagros came to bedside and EKG done. Rapid [...] dsg twice daily. documented in this encounter [facility] Work Phone: 10-23-2024 Miscellaneous Notes [...] rifampin, augmentin and doxycycline. He came to [facility] ED with severe HS and associated [...] Nephropathy - Cr 1.69 on admission - [facility] NSAID use for HS, most recently was [...] rifampin, augmentin and doxycycline. 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 Additional Details: Line was inserted using Modified Seldinger's Technique. Placed by: Shreya Bailey RN-[facility] Associated Problem(s): Abscess Kevan La is a 49 y.o. male with refractory hidradenitis supprativa (HS) not responding to povorcitinib (RCT candidate), apremilast, isotretinoin, adalimumab, infliximab, moxifloxacin/metronidazole, minocyclin, clindamycin, rifampin, augmentin and doxycycline. He came to [facility] ED with severe HS and associated [...] Nephropathy - Cr 1.69 on admission - [facility] NSAID use for HS, most recently was [...] of protein and daily nutrients to also pump erector helper in healing. Problem: Pain - Adult [...] rifampin, augmentin and doxycycline. 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 He came to [facility] ED with severe HS and associated [...] Updates 10/18: -Blood culture 10/10 with slackia exmohindera in [...] Nephropathy - Cr 1.69 on admission - [facility] [employer] NSAID use for HS, most recently was on home ibuprofen - Hold home ibuprofen - UA unremarkable - CT A/P no hydronephrosis or renal abnormality - Avoid nephrotoxic drug, hypotension, sepsis, dehydration - Continuing to endorse oral hydration Fluid: PRN Electrolyte: PRN Diet: regular DVT prophylaxis: SCD, UFH Code status: FULL CODE NOK: Omkar Pradoclifford (brother, ) The patient's goals for the [...] rifampin, augmentin and doxycycline. He came to [facility] ED with severe HS and associated [...] recommendations. Updates 10/17: -Blood culture 10/10 with maryia dhavala in [...] Nephropathy - Cr 1.69 on admission - [facility] NSAID use for HS, most recently was [...] rifampin, augmentin and doxycycline. He came to [facility] ED with severe HS and associated [...] Nephropathy - Cr 1.69 on admission - [facility] NSAID use for HS, most recently was [...] Cabrera MD PGY1 Acute Care Surgery Pager [phone] The patient's goals for the shift include [...] rifampin, augmentin and doxycycline. 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 He came to [facility] ED with severe HS and associated [...] 1.69 on admission (1.48 on 09/12/2024) - [facility] NSAID use for HS, most recently was [...] Thierno Chavis MD PGY-2 General Surgery ACS [id number] Rapid Response Nurse Note: RADAR alert: 6 Pager time: [phone] Arrival time: 1124 Event end time: 1156 Location: 2075 [] Triage by phone or secure messaging Rapid response initiated by: [] Rapid response RN [] Family [] Nursing Company Marker [] Physician [x] RADAR auto page [] Sepsis auto-page [] RN [] RT [] BINDER STRIPPER MACHINE/PA [] Other: Primary reason for call: [] [...] Note Date: 10/10/2024 - 10/13/2024 OR Location: [facility] OR Name: Kevan La, : 1975, Age: 49 y.o., , Sex: male Diagnosis Pre-op Diagnosis * Hidradenitis suppurativa [L73.2] Post-op Diagnosis * Hidradenitis suppurativa [L73.2] Procedures INCISION AND DRAINAGE, THIGH 80895 - DC I&D DEEP ABSC BURSA/HEMATOMA THIGH/KNEE REGION Surgeons * Momo Dougherty - Primary Resident/Fellow/Other Project Development Coordinator: Surgeons and Role: * Thierno Chaivs MD - Resident - Assisting Staff: Freight Delivery Driver: Magda Scrub Person: Mack Anesthesia Staff: Anesthesiologist: Kristy Clarke MD Planer Operator / Grader: Chelle Singh MD Procedure Summary Anesthesia: General [...] Ladonna Chavis MD PGY-2 Gen Surg ACS [id number] Cosigned by Momo Dougherty MD at 10/13/2024 [...] rifampin, augmentin and doxycycline. 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 He came to [facility] ED with severe HS and associated [...] course of Unasyn. documented in this encounter [facility] Work Phone: 10-22-2024 History of Present illness Narrative 10/22/24 1536 Discharge Planning Expected Discharge Disposition SNF ([facility]) What day is the transport expected? 10/23/24 What time is the transport expected? 1400 Transport confirmed via [facility] ([phone]), N2N # [phone], 100 cabrera. Medical team, pt's RN, and resource RN aware. Kevan La is a 49 y.o. male on day 11 of admission presenting with Gluteal abscess. Pt is medically ready. [facility] confirmed with pt that he is agreeable to [facility] if able to accept as they are possibly the only accepting SNF at this time with a pending Medicaid #. 1538-Per HRS, pt's pending Medicaid # is [id number]. [facility] also sent [facility] pt's Medicaid application as requested. 1544-[facility] confirmed 7000 completed and able to accept pt. [facility] will work on transport. Physical Therapy Physical Therapy Treatment Patient Name: Kevan La Department: [place] [address] Room: A Today's Date: 10/22/2024 Time Calculation Start Time: [...] on L buttocks while sitting Outcome Measures: [facility] Basic Mobility Turning from your back to [...] Assessment/Plan Assessment & Plan Wound infection Abscess Kvean La is a 49 y.o. male with refractory hidradenitis supprativa (HS) not responding to povorcitinib (RCT candidate), apremilast, isotretinoin, adalimumab, infliximab, moxifloxacin/metronidazole, minocyclin, clindamycin, rifampin, augmentin and doxycycline. He came to [facility] ED with severe HS and associated [...] Nephropathy - Cr 1.69 on admission - metal [facility] NSAID use for HS, most recently was [...] Medicaid Status: Inpatient [facility] Potential Barriers: Pending facility acceptance ADOD: 10/23/24 [...] rifampin, augmentin and doxycycline. He came to [facility] ED with severe HS and associated [...] Nephropathy - Cr 1.69 on admission - [facility] NSAID use for HS, most recently was [...] 35 minutes in professional medical decision making, [id number] examination and counseling, care coordination, chart review, [...] rifampin, augmentin and doxycycline. He came to [facility] ED with severe HS and associated [...] blood culture (taken 10/10) resulted with Maryia exmohindera on 10/16. 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 Pt is interested in [facility] (able to accept) and [facility] (interested). [facility] will contact pt to complete a Medicaid questionnaire and awaiting [facility] liaison to review. Plan to follow up with SNFs on Monday. Also, plan to follow up with HRS to obtain a pending Medicaid number. credentialing coordinator will continue to follow for discharge planning needs. Aida Sommer MSN, RN- [facility] Coordinator ([facility]) [phone] Vancomycin Dosing by Pharmacy- Cessation of Therapy [...] Services long-term Expected Discharge Disposition SNF Per [facility] confirmed they are able to accept pt with pending Medicaid number, [facility] [place], [place], [facility] and [facility] SNF's are still reviewing. Update [...] provide FOC tomorrow. Pt will need pending [place] Medicaid number and 7000 form prior to discharge. Care Transitions team will continue to follow for discharge planning needs. Lorenza Morales RN Transitional Community Health Coordinator (TCC) [phone] or [phone] Vancomycin Dosing by Pharmacy- FOLLOW UP Kevan [...] on 10/19/2024 Exposure target: AUC24 (range)400-600 mg/L.hr [id number]: 447 mg/L.hr AUC24,ss: 474 mg/L.hr Probability of [...] clinical response, and signs/symptoms of toxicity. DAVINA FLAHERTY, PharmD Kevan La is a 49 y.o. [...] Plan was discussed with ID attending Dr Rodrigeuz. We will continue to follow the patient. Ivette Pina MD PGY5, ID Fellow. For new consults, contact pager [phone]. EPIC chat preferred. Ivette Pina MD I [...] rifampin, augmentin and doxycycline. 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 He came to [facility] ED with severe HS and associated [...] Patient's blood culture (taken 10/10) resulted with Slacynthiaia exmohindera on 10/16. Formal ID consult placed for further recommendations. 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 male on day 7 of admission presenting with Gluteal abscess. This TCC requested a pending Medicaid # from [facility]. 11:10 am This TCC discussed with pt need for SNF due to IV ABX and wound care. Pt agreeable to SNF. This TCC gave pt a list of SNFs. Pt agrees for TCC to return shortly to get choices. 01:00pm This TCC returned to get SNF choices. This TCC educated pt on his freedom of choice. Pt made choices as follows. 1st [facility] [place] 2nd [facility] 3rd [facility] and 4th [facility]. Referrals made via [facility]. 1460 This TCC followed up with pt that none of the facilities accepted the pt.Pt agreeable for blanket referral to be made to see who can accept pending medicaid number and then pt can choose from those facilities. [place] referral made. TCC to follow up with discharge planning. Usman RUIZN, [facility] [phone] [email or web address] Kevan La is a 49 y.o. [...] non tender, no organomegaly was appreciated. +BS. 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 No gross focal deficits appreciated. [...] from last 72 hours Lab Units 10/17/24 19210/17/24 0811 10/16/24 0732 ALK PHOS U/L -- [...] ID Fellow. For new consults, contact pager [phone]. EPIC chat preferred. I saw and evaluated [...] final ID reccs for abx. Payer: no insurance-[facility] can accept for [place] Medicaid Status: inpatient Discharge disposition: ?SNF-If IV abx and wound needed Potential Barriers: no insurance ADOD: 10/18 1003-TCC spoke to pt about possible DC plans. Pt states he would be agreeable to go to a SNF that accepts a pending Medicaid # for wound care and if IV abx is needed. 1552-TCC requested a pending Medicaid # from [facility]-medical team updated. [facility] ACUTE CARE SURGERY - PROGRESS NOTE Patient [...] Surg Acute Care Surgery Service Team Pager: [phone] CHIEF COMPLAINT / EVENTS LAST 24HRS / [...] Bacteria 10/10/24 Blood culture from Peripheral Venipuncture Maryia dhavala 10/10/24 Blood culture from Peripheral Venipuncture Staphylococcus [...] on 10/17/2024 Exposure target: AUC24 (range)400-600 mg/L.hr [id number]: 443 mg/L.hr AUC24,ss: 447 mg/L.hr Probability of [...] Bacteria 10/10/24 Blood culture from Peripheral Venipuncture aMrta powers 10/10/24 Blood culture from Peripheral Venipuncture [...] 12 hours. Exposure target: AUC24 (range)400-600 mg/L.hr [id number]: 443 mg/L.hr AUC24,ss: 448 mg/L.hr Probability of [...] rifampin, augmentin and doxycycline. 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 Per [facility], "patient has been screened from a previous date of service and accepted for possible [place] Medicaid. We are pending copies of his paystubs and will continue to follow up with him to obtain." [facility] states for TCC to notify them on the day of discharge and they will send a letter to [facility] so pt can receive his medications. Medical team aware. Occupational Therapy Evaluation Patient Name: Kevan La Department: [place] [address] Room: Today's Date: 10/15/2024 Time Calculation Start Time: 902 Stop Time: 915 Time Calculation (min): 13 min Assessment: OT Assessment: Pt presents to OT with increased falls risk, decreased safety and independence with functional transfers and mobility and impaired ADL performance. Pt will continue to benefit from skilled OT services to address deficits and facilitate safe return to [facility] and home environment. 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 ADL: Eating Assistance: Independent Grooming Assistance: Stand [...] and LUE LUE: Within Functional Limits Outcome Measures:[facility] Daily Activity Putting on and taking off [...] 10:46 AM Connie Thomas OT Rehab Office: [phone] Physical Therapy Physical Therapy Evaluation Patient Name: Kevan La Department: [place] [address] Room: [address] [place] [address] Today's Date: 10/15/2024 Time Calculation Start Time: [...] as evidenced by functional mobility Outcome Measures: [facility] Basic Mobility Turning from your back to [...] at 10:09 AM - Doris Guzman PT [facility] ACUTE CARE SURGERY - PROGRESS NOTE Patient [...] PGY1 Acute Care Surgery Service Team Pager: [phone] CHIEF COMPLAINT / EVENTS LAST 24HRS / [...] CHLORIDE mmol/L 102 100 101 CO2 mmol/L 25 BUN mg/dL 15 19 16 CREATININE [...] rifampin, augmentin and doxycycline. He came to [facility] ED with severe HS and associated [...] Nephropathy - Cr 1.69 on admission - [facility] NSAID use for HS, most recently was [...] 40 minutes in professional medical decision making, vqxa-ix-ynqe examination and counseling, care coordination, chart review, [...] rifampin, augmentin and doxycycline. He came to [facility] ED with severe HS and associated [...] 1.69 on admission (1.44 on 09/13/2024) - [facility] NSAID use for HS, most recently was [...] regimen. This dosing regimen is predicted by [employer] to result in the following pharmacokinetic parameters: Regimen: 750 mg IV every 12 hours. Start time: 12:21 on 10/14/2024 Exposure target: AUC24 (range)400-600 mg/L.hr [id number]: 425 mg/L.hr AUC24,ss: 416 mg/L.hr Probability of [...] clinical response, and signs/symptoms of toxicity. Maria G Villalba PharmD [facility] ACUTE CARE SURGERY - PROGRESS NOTE Patient [...] Maurice Chavis MD PGY-2 Gen Surg ACS [id number] CHIEF COMPLAINT / EVENTS LAST 24HRS / [...] rifampin, augmentin and doxycycline. 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 N Transportation Needs In the [...] appt on 10/15 at 1:30pm with Sharron Stanec at ([phone]) PHARMACY: [facility] RECENT FALLS: denies EQUIPMENT USED [...] rifampin, augmentin and doxycycline. 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 Arianna Mir PharmD [facility] ACUTE CARE SURGERY - PROGRESS NOTE Patient [...] [place] and we will consent in AM. [facility] [id number] CHIEF COMPLAINT / EVENTS LAST 24HRS / [...] rifampin, augmentin and doxycycline. 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 Pharmacy reviewed the patient's iawdu-dc-ofemtpcln medications and allergies for accuracy. Medications ADDED: Ibuprofen Ferrous sulfate Vitamin D3 Medications CHANGED: none Medications REMOVED: none The list below reflects the updated DRAMA TEACHER list. Prior to Admission Medications Prescriptions Last Dose Informant Study STOP-HS1 [id number] povorcitinib 45mg or 75mg tablet 10/10/2024 Morning [...] Allergies Patient accepts M2B at discharge. Sources: [facility] Pharmacy dispense history Patient interview Moderate historian Chart Review ID note from 09/24 Dermatology note from 09/30 Care Everywhere Additional Comments: Pt states that many pain medications are ineffective would like something prior to being discharge Connie Choi PharmD Transitions of Care Pharmacist 10/11/24 Secure Chat preferred If no response call [phone] or [place] "Med Rec" Kevan La is a 49 [...] planning. MIGUEL Sheppard documented in this encounter [facility] Work Phone: 10-21-2024 Hospital Discharge [...] us take part in your care! - [facility] documented in this encounter [facility] Work Phone: 10-18-2024 Consult note [...] on 10/18/2024 Exposure target: AUC24 (range)400-600 mg/L.hr [id number]: 413 mg/L.hr AUC24,ss: 458 mg/L.hr Probability of [...] small molecule checkpoint inhibitor), presented on 09/2021 [facility] with a complaint of fatigue and [...] and apremilast. He was being treated by [facility]. Pt reports that he has been [...] pain (1 - 3). 10/10/2024 Study STOP-HS1 [id number] povorcitinib 45mg or 75mg tablet Take 1 [...] 30 packet 0 Not Taking Study STOP-HS1 [id number] povorcitinib 45mg or 75mg tablet Take 1 tablet by mouth once daily. Preferably in the morning, with a full glass of water. 31 tablet 0 Study STOP-HS1 [id number] povorcitinib 45mg or 75mg tablet Take 1 tablet by mouth once daily. Preferably in the morning, with a full glass of water. 31 tablet 0 Study STOP-HS1 [id number] povorcitinib 45mg or 75mg tablet Take 1 tablet by mouth once daily. Preferably in the morning, with a full glass of water. 62 tablet 0 Study STOP-HS1 [id number] povorcitinib 45mg or 75mg tablet Take 1 tablet by mouth once daily. Preferably in the morning, with a full glass of water. 62 tablet 0 Study STOP-HS1 [id number] povorcitinib 45mg or 75mg tablet Take 1 tablet by mouth once daily. Preferably in the morning, with a full glass of water. 62 tablet 0 Study STOP-HS1 [id number] povorcitinib 45mg or 75mg tablet Take 1 tablet by mouth once daily. Preferably in the morning, with a full glass of water. 62 tablet 0 Study STOP-HS1 [id number] povorcitinib 45mg, 75mg or placebo tablet Take 1 tablet by mouth once daily. Preferably in the morning, with a full glass of water. 31 tablet 0 Study STOP-HS1 [id number] povorcitinib 45mg, 75mg or placebo tablet Take 1 tablet by mouth once daily. Preferably in the morning, with a full glass of water. 31 tablet 0 Study STOP-HS1 [id number] povorcitinib 45mg, 75mg or placebo tablet Take 1 tablet by mouth once daily. Preferably in the morning, with a full glass of water. 31 tablet 0 Study STOP-HS1 [id number] povorcitinib 45mg, 75mg or placebo tablet Take [...] non tender, no organomegaly was appreciated. +BS. 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 No gross focal deficits appreciated. [...] Final No results found for: "HIV1X2", "HIVCONF", "ZKJAVC5FB" No results found for: "HEPCABINIT", "HEPCAB", HCVPCRQUANT [...] ID Fellow. For new consults, contact pager [phone]. [place] preferred. I spent 45 minutes in the [...] note. Daylin Duran MD (please reach through [employer]) Infectious Diseases, Senior Attending Physician Nutrition Assessment [...] morning: potatoes, scrambled eggs with cheese, an Macedonian muffin with butter and jelly and orange [...] Results from last 7 days Lab Units 10/14/2482910/13/24114710/12/24 0810/11/24 0546 GLUCOSE mg/dL 163* 144* 100* 79 CALCIUM mg/dL 9.0 10.4 10.0 9.4 SODIUM mmol/L 137 139 136 138 POTASSIUM mmol/L 3.9 4.5 4.0 4.1 CO2 mmol/L CHLORIDE mmol/L 102 100 101 106 BUN mg/dL 15 19 16 20 CREATININE mg/dL 1.44* 1.84* 1.61* 1.60* , A1C: Lab Results Component Value Date HGBA1C 6.0 (H) 09/14/2024 , BG POCT trend: , Liver Function Trend: Results from last 7 days Lab Units 10/14/2482910/13/24 11410/12/2482310/10/24 1617 ALK PHOS U/L 60 76 66 79 AST U/L 6* 10 11 9 ALT U/L 9* 9* 8* 14 BILIRUBIN TOTAL mg/dL 0.2 0.4 0.3 0.2 , Renal Lab Trend: Results from last 7 days Lab Units 10/14/2482910/13/24114710/12/24 0810/11/24 0546 POTASSIUM mmol/L 3.9 4.5 4.0 4.1 PHOSPHORUS mg/dL -- -- -- 3.8 SODIUM mmol/L 137 139 136 138 MAGNESIUM mg/dL -- -- -- 2.19 EGFR mL/min/1.73m*2 59* 44* 51* 52* BUN mg/dL 15 19 16 20 CREATININE mg/dL 1.44* 1.84* 1.61* 1.60* , Vit D: No results found for: "VITD25" , Vit B12: No results found for: "WXRWAJDV01" Nutrition Specific Medications: Scheduled medications acetaminophen, 975 [...] rifampin, augmentin and doxycycline. He came to [facility] ED with severe HS and associated deep seated tissue infection. Wound Assessment: Wound 09/13/24 Other (comment) Buttock Left (Active) Wound Image 10/11/24 1444 Site Assessment Yellow;[place];Painful;Denuded;Indur ation;Granulation;Fibrinous;Swell ing 10/11/24 1444 Wound Length (cm) 3 cm 10/11/24 1444 Wound Width (cm) 3.5 cm 10/11/24 1444 Wound Surface Area (cm^2) 10.5 cm^2 10/11/24 1444 Wound Depth (cm) 1 cm 10/11/24 1444 Wound Volume (cm^3) 10.5 cm^3 10/11/24 1444 Wound Healing % -110 10/11/24 1444 State of Healing Non-healing;Slough;Undermining 10/11/24 1444 Undermining Clock Position of Wound 6 10/11/24 1444 Margins Not attached;Poorly defined 10/11/24 1444 Treatments Site care;Packings 10/11/24 1444 Drainage Description Purulent;[place];Yellow 10/11/24 144 Drainage Amount Moderate 10/11/24 1444 Dressing Hydrofiber;Packed;ABD;Silicone border dressing;Barrier film 10/11/24 1444 Dressing Changed New 10/11/24 1444 Dressing Status Dry;Clean 10/11/24 1444 Wound 10/10/24 Leg Left;Upper (Active) Assessment/Intervention: Pt [...] for HS. Patient was recently [place] [facility] [place] for the same complaint. He presented [...] and apremilast. He was being treated by [facility]. Pt reports that he has been [...] Yellow, Dark-Yellow Appearance, Urine Clear Clear Specific [place], Urine 1.037 (N) 1.005 - 1.035 pH, [...] PGY2, Dermatology Epic chat (preferred) Team pager [phone] I saw and evaluated the patient. I [...] on 10/10/2024 Exposure target: AUC24 (range)400-600 mg/L.hr [id number]: 316 mg/L.hr AUC24,ss: 465 mg/L.hr Follow-up level tomorrow with AM labs. Will continue to monitor renal function daily while on vancomycin and order serum creatinine at least every 48 hours if not already ordered. Follow for continued vancomycin needs, clinical response, and signs/symptoms of toxicity. Long Swain PharmD Associated Order(s): IP CONSULT TO ACUTE CARE SURGERY [facility] ACUTE CARE SURGERY - HISTORY AND PHYSICAL [...] Dr. Maurice Magana MD PGY-4 General Surgery [facility] [id number] CHIEF COMPLAINT/REASON FOR CONSULT: 49M with PMH [...] 30 minutes after. 09/20/24 10/20/24 Ronna Carpenter APRN-SHAREPOINT SPECIALIST nicotine polacrilex (Nicorette) 2 mg gum Chew [...] 09/18/24 10/18/24 Lia Prado MD Study STOP-HS1 [id number] povorcitinib 45mg or 75mg tablet Take 1 tablet by mouth once daily. Preferably in the morning, with a full glass of water. 02/29/24 Kimber Last MD Study STOP-HS1 [id number] povorcitinib 45mg or 75mg tablet Take 1 tablet by mouth once daily. Preferably in the morning, with a full glass of water. 04/04/24 Kimber Last MD Study STOP-HS1 [id number] povorcitinib 45mg or 75mg tablet Take 1 tablet by mouth once daily. Preferably in the morning, with a full glass of water. 04/12/24 Kimber Last MD Study STOP-HS1 [id number] povorcitinib 45mg or 75mg tablet Take 1 tablet by mouth once daily. Preferably in the morning, with a full glass of water. 05/27/24 Marlon Christiansen MD Study STOP-HS1 [id number] povorcitinib 45mg or 75mg tablet Take 1 tablet by mouth once daily. Preferably in the morning, with a full glass of water. 07/08/24 Marlon Christiansen MD Study STOP-HS1 [id number] povorcitinib 45mg or 75mg tablet Take 1 tablet by mouth once daily. Preferably in the morning, with a full glass of water. 08/20/24 Marlon Christiansen MD Study STOP-HS1 [id number] povorcitinib 45mg or 75mg tablet Take 1 tablet by mouth once daily. Preferably in the morning, with a full glass of water. 09/30/24 Marlon Christiansen MD Study STOP-HS1 [id number] povorcitinib 45mg, 75mg or placebo tablet Take 1 tablet by mouth once daily. Preferably in the morning, with a full glass of water. 12/11/23 Kimber Last MD Study STOP-HS1 [id number] povorcitinib 45mg, 75mg or placebo tablet Take 1 tablet by mouth once daily. Preferably in the morning, with a full glass of water. 12/29/23 Kimber Last MD Study STOP-HS1 [id number] povorcitinib 45mg, 75mg or placebo tablet Take 1 tablet by mouth once daily. Preferably in the morning, with a full glass of water. 01/16/24 Kimber Last MD Study STOP-HS1 [id number] povorcitinib 45mg, 75mg or placebo tablet Take [...] Terrence Richards DO documented in this encounter [facility] Work Phone: 10-13-2024 History and physical note H&P reviewed. The patient was examined and there are no changes to the H&P. Pt reassessed: plan for I&D today Cosigned by Momo Dougherty MD at 10/13/2024 7:22 PM EST Source Note - Diane Magana MD - 10/10/2024 11:27 PM EST [facility] ACUTE CARE SURGERY - HISTORY AND PHYSICAL [...] Dr. Maurice Magana MD PGY-4 General Surgery ACS [id number] CHIEF COMPLAINT/REASON FOR CONSULT: 49M with PMH [...] 30 minutes after. 09/20/24 10/20/24 Ronna Carpenter, PERFORATOR-SHAREPOINT SPECIALIST nicotine polacrilex (Nicorette) 2 mg gum Chew [...] 09/18/24 10/18/24 Lia Prado MD Study STOP-HS1 [id number] povorcitinib 45mg or 75mg tablet Take 1 tablet by mouth once daily. Preferably in the morning, with a full glass of water. 02/29/24 Kimber Last MD Study STOP-HS1 [id number] povorcitinib 45mg or 75mg tablet Take 1 tablet by mouth once daily. Preferably in the morning, with a full glass of water. 04/04/24 Kimber Last MD Study STOP-HS1 [id number] povorcitinib 45mg or 75mg tablet Take 1 tablet by mouth once daily. Preferably in the morning, with a full glass of water. 04/12/24 Kimber Last MD Study STOP-HS1 [id number] povorcitinib 45mg or 75mg tablet Take 1 tablet by mouth once daily. Preferably in the morning, with a full glass of water. 05/27/24 Marlon Christiansen MD Study STOP-HS1 [id number] povorcitinib 45mg or 75mg tablet Take 1 tablet by mouth once daily. Preferably in the morning, with a full glass of water. 07/08/24 Marlon Christiansen MD Study STOP-HS1 [id number] povorcitinib 45mg or 75mg tablet Take 1 tablet by mouth once daily. Preferably in the morning, with a full glass of water. 08/20/24 Marlon Christiansen MD Study STOP-HS1 [id number] povorcitinib 45mg or 75mg tablet Take 1 tablet by mouth once daily. Preferably in the morning, with a full glass of water. 09/30/24 Marlon Christiansen MD Study STOP-HS1 [id number] povorcitinib 45mg, 75mg or placebo tablet Take 1 tablet by mouth once daily. Preferably in the morning, with a full glass of water. 12/11/23 Kimber Last MD Study STOP-HS1 [id number] povorcitinib 45mg, 75mg or placebo tablet Take 1 tablet by mouth once daily. Preferably in the morning, with a full glass of water. 12/29/23 Kimber Last MD Study STOP-HS1 [id number] povorcitinib 45mg, 75mg or placebo tablet Take 1 tablet by mouth once daily. Preferably in the morning, with a full glass of water. 01/16/24 Kimber Last MD Study STOP-HS1 [id number] povorcitinib 45mg, 75mg or placebo tablet Take [...] small molecule JAK1 inhibitor) who presents to [facility] ED with fatigue, weakness, and worsening of L gluteal wound. Patient was recently [place] [facility] [place] for the same complaint. He presented [...] 09/18/24 10/18/24 Lia Prado MD Study STOP-HS1 [id number] povorcitinib 45mg or 75mg tablet Take 1 tablet by mouth once daily. Preferably in the morning, with a full glass of water. 02/29/24 Kimber Last MD Study STOP-HS1 [id number] povorcitinib 45mg or 75mg tablet Take 1 tablet by mouth once daily. Preferably in the morning, with a full glass of water. 04/04/24 Kimber Last MD Study STOP-HS1 [id number] povorcitinib 45mg or 75mg tablet Take 1 tablet by mouth once daily. Preferably in the morning, with a full glass of water. 04/12/24 Kimber Last MD Study STOP-HS1 [id number] povorcitinib 45mg or 75mg tablet Take 1 tablet by mouth once daily. Preferably in the morning, with a full glass of water. 05/27/24 Marlon Christiansen MD Study STOP-HS1 [id number] povorcitinib 45mg or 75mg tablet Take 1 tablet by mouth once daily. Preferably in the morning, with a full glass of water. 07/08/24 Marlon Christiansen MD Study STOP-HS1 [id number] povorcitinib 45mg or 75mg tablet Take 1 tablet by mouth once daily. Preferably in the morning, with a full glass of water. 08/20/24 Marlon Christiansen MD Study STOP-HS1 [id number] povorcitinib 45mg or 75mg tablet Take 1 tablet by mouth once daily. Preferably in the morning, with a full glass of water. 09/30/24 Marlon Christiansen MD Study STOP-HS1 [id number] povorcitinib 45mg, 75mg or placebo tablet Take 1 tablet by mouth once daily. Preferably in the morning, with a full glass of water. 12/11/23 Kimber Last MD Study STOP-HS1 [id number] povorcitinib 45mg, 75mg or placebo tablet Take 1 tablet by mouth once daily. Preferably in the morning, with a full glass of water. 12/29/23 Kimber Last MD Study STOP-HS1 [id number] povorcitinib 45mg, 75mg or placebo tablet Take 1 tablet by mouth once daily. Preferably in the morning, with a full glass of water. 01/16/24 Kimber Last MD Study STOP-HS1 [id number] povorcitinib 45mg, 75mg or placebo tablet Take [...] Signs/Symptoms:Left gluteal abscess COMPARISON: None. ACCESSION NUMBER(S): [id number] ORDERING CLINICIAN: MACK GRADY TECHNIQUE: Axial CT [...] as stated. This study was interpreted at [place], [place] Signed by: Beronica Valentin 10/10/2024 11:03 PM Dictation workstation: [id number] XR chest 1 view Result Date: 10/10/2024 Interpreted By: Perry Baires, STUDY: XR CHEST 1 VIEW INDICATION: Signs/Symptoms:cough. COMPARISON: September 13, 2024 ACCESSION NUMBER(S): [id number] ORDERING CLINICIAN: KISHORE GUTIERREZ FINDINGS: Previous band [...] Perry Baires 10/10/2024 5:20 PM Dictation workstation: [id number] Assessment and Plan: Kevan La is a [...] in the note. documented in this encounter [facility] Work Phone: 10-10-2024 Emergency department [...] has noted significant pain of the left [place] where his previous hidradenitis suppurativa was. He [...] Perry Baires 10/10/2024 5:20 PM Dictation workstation: [id number] MDM: Patient is a 49-year-old male with [...] detailed above. 2. No evidence of osteomyelitis. [MH] ED Course User Index [MH] Mack Grady MD Diagnoses as of 10/12/24 [...] condition. Mack Grady MD Emergency Medicine PGY-3 [facility] Comment: Please note this report has been [...] male with hidradenitis suppurativa, most treatment in [facility] where he used to live, has lived in [facility] for past 2 years, presenting with [...] Color, Urine Light-Yellow Appearance, Urine Clear Specific [place], Urine 1.037 (*) pH, Urine 7.0 Protein, [...] Abnormality Status --------- ------ Urinalysis with Reflex C...[[id number]] Abnormal Final result Extra Urine Rhodes Tube[[id number]] Final result Please view results for these [...] as stated. This study was interpreted at [facility], [place], [place] Signed by: Beronica Valentin 10/10/2024 11:03 PM Dictation workstation: [id number] XR chest 1 view Final Result Previous band of right basilar airspace disease has nearly completely resolved with only a tiny amount of residual. No new consolidation or edema. Signed by: Perry Baires 10/10/2024 5:20 PM Dictation workstation: [id number] Consult to Interventional Radiology (Results Pending) Medical [...] again. documented in this encounter [facility] Work Phone: 09-30-2024 History of Present illness Narrative Patient seen for Week 42 of STOP HS-301 trial by Marlon Christiansen MD Noted that patient was admitted to the hospital since previous visit. Con meds and additional details of the serious adverse event placed in physical notes. Please see physical copy of notes located in subject binder for additional information. documented in this encounter [facility] Work Phone: 09-24-2024 History of [...] of the labs documented in this encounter [facility] Work Phone: 09-17-2024 Nurse Note Discharge Note: VN went over AVS with Pt. Pt agreed and understood instructions. Pt is aware of follow up appts and blood work. Floor nurse removed IV and intact. Pt has all belongings at the bedside. Pt is awaiting Meds to Beds medication before discharge. [facility] 09-17-2024 Nurse Note Discharge Note: [...] dressing is given. Pt was transferred from [facility] in [place] for this admission. Pt stated his car is at [facility] and he has no means to get there. Pt does not have insurance to set up transport. Pt doesn't have any means of transportation to get to his car at [facility], so the floor is providing LYFT pickup. Pt meds to beds is delivered. Pt is waiting for transport to leave the floor. documented in this encounter [facility] Work Phone: 09-17-2024 Nurse Note Pt is ready for discharge. Discharge paper is given, discharge instruction is given. All questions are answered at this time. Pt PIV is removed, wound dressing changed and education on how to clean and change wound dressing is given. Pt was transferred from [facility] in [place] for this admission. Pt stated his car is at [facility] and he has no means to get there. Pt does not have insurance to set up transport. Pt doesn't have any means of transportation to get to his car at [facility], so the floor is providing LYFT pickup. Pt meds to beds is delivered. Pt is waiting for transport to leave the floor. [facility] 09-17-2024 History of Present illness Narrative CORPORATE TRAFFIC MANAGER met with patient at bedside to address questions. Patient expressed interest on if he would be approved for disability. CORPORATE TRAFFIC MANAGER encouraged patient to call or go online to initiate the application process. Patient had disability resources at bedside. CORPORATE TRAFFIC MANAGER notified patient that the resources explains how and where to submit application and explains what we be needed and what to expect throughout the process. Patient verbalized understanding and thanked SW. PT recommends no needs. CORPORATE TRAFFIC MANAGER will sign off. SOPHIA Ardon 09/17/24 1213 [...] were you homeless or living in a assisted (including now)? N Transportation Needs In the past 12 months, has lack of transportation kept you from medical appointments or from getting medications? no In the past 12 months, has lack of transportation kept you from meetings, work, or from getting things needed for daily living? No TCC ASSESSMENT: Met with pt and introduced myself as nurse behavioral health care and member of the Care Transitions team for discharge planning. Pt stated he lives at home alone. He is independent with ADL's/iADL's, walks without use of an assistive device, and drives. Pt stated all of [place] and [place] from [place] in 10/2023 so he has no family/friend support at home. Pt stated he lost his job back in 06/2024 which resulted with termination of his [facility] medical insurance policy. Pt denies any falls. Pt stated he feels safe at home. Pt's address, phone number, and emergency contact information was verified. SW was consulted on 09/16 for financial concerns (assistance with disability, lack of insurance). Home care: none. 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 loss control manager: none. PCP: Pt does not have a PCP and hasn't been seen by one in about 3-4 years. Transport to appts: Pt drives himself. Pharmacy: [facility]. Pt stated she only prescriptions he takes at home are STOP-HS 301 which is part of clinical free trial from Dermatology. Discharge Planning: Pt presenting from [facility] for new wound infection 2/2 hidradenitis suppurativa. Per medical team plan for discharge home today on oral Augmentin and PCP/Dermatology follow up appointments. Per HRS they accepted pt for [place] Medicaid and will fax auth letter to [facility] for release of his prescriptions. Pt stated he will perform his own wound to L buttock with instructions from nursing. Nursing updated and asked to perform wound care teaching + send pt home with wound care supplies as he will not be able to receive home health care until [place] Medicaid finalized. Pt voiced no additional questions or concerns regarding discharge planning. credentialing coordinator will continue to follow for discharge planning needs. Lorenza Morales RN Transitional Community Health Coordinator (TCC) [phone] or [phone] Kevan La is a 49 y.o. male [...] inhibitor) presenting with new wound infection from [facility] ED.Being treated currently with Vancomycin, Zosyn, and [...] (09/24/24). Remainder as above. Mica Ly MD Med-Peds Hospitalist Physical Therapy Physical Therapy Evaluation Patient Name: Kevan La Department: [place] [address] Room: [address] [place], [place] [id number] Today's Date: 09/16/2024 Time Calculation Start Time: [...] Prior Function Per Pt/Caregiver Report Level of [place]: Independent with ADLs and functional transfers ADL [...] Antalgic Comments/Distance (ft) 1: 100ft Outcome Measures: [facility] Basic Mobility Turning from your back to [...] interest in disability. HRS was notified and [facility] confirmed patient is on their list to see today. CORPORATE TRAFFIC MANAGER attempted to provide patient with disability resources [...] INDICATION: Signs/Symptoms:New fever. COMPARISON: None. ACCESSION NUMBER(S): [id number] ORDERING CLINICIAN: BALDOMERO POWELL FINDINGS: 2 AP [...] Miah Alves 09/14/2024 8:38 AM Dictation workstation: [id number] Physical Exam Constitutional: Appearance: Normal appearance. HENT: [...] inhibitor) presenting with new wound infection from [facility] ED.Being treated currently with Vancomycin, Zosyn, and [...] INDICATION: Signs/Symptoms:New fever. COMPARISON: None. ACCESSION NUMBER(S): [id number] ORDERING CLINICIAN: BALDOMERO POWELL FINDINGS: 2 AP [...] Miah Alves 09/14/2024 8:38 AM Dictation workstation: [id number] Physical Exam PHYSICAL EXAM: General: awake, alert, [...] INDICATION: Signs/Symptoms:New fever. COMPARISON: None. ACCESSION NUMBER(S): [id number] ORDERING CLINICIAN: BALDOMERO SALDANAES FINDINGS: 2 AP radiographs of the chest. [...] Miah Alves 09/14/2024 8:38 AM Dictation workstation: [id number] Assessment/Plan Kevan La is a 49 y.o. male presenting with PMH of severe hidradenitis supprativa (on STOP HS-301 trial (povorcitinib), small molecule JAK1 inhibitor) presenting with new wound infection from [facility] ED. 09/15/24 Update - updated pain regimen: [...] INDICATION: Signs/Symptoms:New fever. COMPARISON: None. ACCESSION NUMBER(S): [id number] ORDERING CLINICIAN: BALDOMERO POWELL FINDINGS: 2 AP [...] Miah Alves 09/14/2024 8:38 AM Dictation workstation: [id number] Physical Exam PHYSICAL EXAM: General: awake, alert, [...] Yellow, Dark-Yellow Appearance, Urine Clear Clear Specific [place], Urine 1.014 1.005 - 1.035 pH, Urine [...] INDICATION: Signs/Symptoms:New fever. COMPARISON: None. ACCESSION NUMBER(S): [id number] ORDERING CLINICIAN: BALDOMERO POWELL FINDINGS: 2 AP [...] Miah Alves 09/14/2024 8:38 AM Dictation workstation: [id number] CT abdomen pelvis w IV contrast Result Date: 09/12/2024 Patient Name: KEVAN LA : 1975 [facility]#: [id number] Exam Date/Time: 09/12/2024 21:13 Procedure: CT ABDOMEN [...] 09/12/2024 [facility]: [facility] 1975 [id number] Exam Date/Time: 09/12/2024 20:17 Procedure: XR CHEST [...] inhibitor) presenting with new wound infection from [facility] ED. #hidradenitis supprativa ::purulent drainage ::Leukocytosis (13.1) [...] clinical response, and signs/symptoms of toxicity. Alberto VanegasD documented in this encounter [facility] Work Phone: 09-17-2024 Hospital Discharge [...] Your Care team documented in this encounter [facility] Work Phone: 09-16-2024 Miscellaneous Notes [...] inhibitor) presenting with new wound infection from [facility] ED. He has a long-standing history of [...] the trial drug. 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 He used to live in [facility]. Denies any sick contacts. He also reports worsening left leg weakness since May (he used to walk with a limp, now has to shuffle). He has both a dry cough that sometimes culminates in post-tussive emesis. On 09/12, he came in with a draining left thigh wound, dry cough and shortness of breath to the [facility] ED. He had some post-tussive emesis. He came in with a fever to 100.4 , tachycardia to 102. He was started on Vanc/Zosyn, got 2 L of NS, and got toradol and morphine for pain. No real culture data history for infections except for rare gram positive cocci in 2015. On 09/13, [place] [facility] [place] denies any pain, but has an intermittent [...] The clinical goals for the shift include slaly bessi safe and free rom falls during shift documented in this encounter [facility] Work Phone: 09-16-2024 Plan of [...] complained of pain and was medicated per [facility] order and before left buttock dressing change. Patient tolerated dressing change with no issues. IV antibiotics administered. PT evaluated pt. Patient to be discharged 09/17/24. VSS, call light within reach, safety maintained. Zuleyma Sanchez RN [facility] 09-16-2024 Consult note Associated Order [...] Estimated Needs: Total Energy Estimated Needs (kCal): (3870-4407 kcal) Method for Estimating Needs: MSJ 2017 [...] Wound healing Time Spent (min): 40 minutes [facility] 09-16-2024 Consult note Associated Order [...] Estimated Needs: Total Energy Estimated Needs (kCal): (5192-5361 kcal) Method for Estimating Needs: MSJ 2017 [...] Hydrofiber;Packed;ABD 09/14/24 1211 Dressing Changed New 09/14/24 1211 Dressing Status Dry;Clean 09/14/24 1211 Wound Team [...] left buttock wound with AMD packing strip (FAMILY COURT COUNSELLOR #[id number] or [id number]) Cover the surrounding abscess wounds with 2 sheets of Aquacel Ag (FAMILY COURT COUNSELLOR#[id number]) Cover the wounds with multiple ABD pads Xiomaar Palmer RN CW 09/14/2024 1:14 PM Associated Order(s): IP CONSULT TO ACUTE CARE SURGERY [facility] ACUTE CARE SURGERY - CONSULT Patient Name: [...] any questions Seen with Dr. Dequan Petty [facility] [address] CHIEF COMPLAINT/REASON FOR CONSULT: Patient has an [...] for evaluation and then was transferred [place] [facility] [place] more definitive management. Since admission here [...] End Date Taking? Authorizing Provider Study STOP-HS1 [id number] povorcitinib 45mg or 75mg tablet Take 1 tablet by mouth once daily. Preferably in the morning, with a full glass of water. 02/29/24 Kimber Last MD Study STOP-HS1 [id number] povorcitinib 45mg or 75mg tablet Take 1 tablet by mouth once daily. Preferably in the morning, with a full glass of water. 04/04/24 Kimber Last MD Study STOP-HS1 [id number] povorcitinib 45mg or 75mg tablet Take 1 tablet by mouth once daily. Preferably in the morning, with a full glass of water. 04/12/24 Kimber Last MD Study STOP-HS1 [id number] povorcitinib 45mg or 75mg tablet Take 1 tablet by mouth once daily. Preferably in the morning, with a full glass of water. 05/27/24 Marlon Christiansen MD Study STOP-HS1 [id number] povorcitinib 45mg or 75mg tablet Take 1 tablet by mouth once daily. Preferably in the morning, with a full glass of water. 07/08/24 Marlon Christiansen MD Study STOP-HS1 [id number] povorcitinib 45mg or 75mg tablet Take 1 tablet by mouth once daily. Preferably in the morning, with a full glass of water. 08/20/24 Marlon Christiansen MD Study STOP-HS1 [id number] povorcitinib 45mg, 75mg or placebo tablet Take 1 tablet by mouth once daily. Preferably in the morning, with a full glass of water. 12/11/23 Kimber Last MD Study STOP-HS1 [id number] povorcitinib 45mg, 75mg or placebo tablet Take 1 tablet by mouth once daily. Preferably in the morning, with a full glass of water. 12/29/23 Kimber Last MD Study STOP-HS1 [id number] povorcitinib 45mg, 75mg or placebo tablet Take 1 tablet by mouth once daily. Preferably in the morning, with a full glass of water. 01/16/24 Kimber Last MD Study STOP-HS1 [id number] povorcitinib 45mg, 75mg or placebo tablet Take [...] and apremilast. He was being treated by [facility]. Pt reports that he has been on multiple therapies and was not able to list all the medications he has previously tried. He did recognize the names of the above medications. Acid Painter is unable to access paper charts for [...] at the time when talking to the appeals writer. Notes increased fatigue. Denies any fevers, [...] back on smoking. 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 Hospital Course - 09/12 he came in with a draining left thigh wound, dry cough, and shortness of breath to [facility] ED - Vitals: T 100.4, HR 102 - Labs: WBC 17.8, Hgb 8.9, platelets 568, CMP Cr 1.48, lactic acid 2 - CT abdomen/pelvis: subcutaneous edema and subcutaneous emphysema of the left buttock extending along the posterior thigh. Extension of fluid into the posterior deep intramuscular fascia of the posterior left thigh. - Vanc/zosyn started - toradol/morphine for pain - 09/13 transferred to [facility] - Labs: WBC 13.4, Hgb 7.8, platelets [...] Yellow, Dark-Yellow Appearance, Urine Clear Clear Specific [place], Urine 1.014 1.005 - 1.035 pH, Urine [...] and one with Ronna Carpenter at our [place] location. We will arrange outpatient follow-up The patient was seen and discussed with attending physician Dr. Adhikari. The assessment and plan was communicated to the care team. Thank you for the consultation and for the opportunity to contribute to the care of this patient. Danna Alves MD PGY2, Dermatology Epic chat (preferred) Team pager [phone] Jennifer Pena, Randi beal, P.Y., Hu Eubanks, Mónica Oakley, Amaris Ware., Latrell Mayen, Paolo Valdez., Rebekah Edward., Yue Cummings., Yue Roland. and Aure Rodgers., 2023. Efficacy [...] 09/14/2024 Patient weight is as follows: Vitals: 09/13/242140 Weight: 101 kg (222 lb 3.6 oz) [...] Trudi Luna PharmD documented in this encounter [facility] Work Phone: 09-15-2024 Plan of [...] within reach, safety maintained. Zuleyma Sanchez RN [facility] Work Phone: 09-15-2024 Hospital Note Formatting of t his note might be different from the original. Kevan La is a 49 y.o. male presenting with PMH of severe hidradenitis supprativa (disease on left buttock and gluteal fold) on STOP HS-301 trial (povorcitinib, small molecule JAK1 inhibitor) presenting with new wound infection from [facility] ED. He has a long-standing history of HS (since 2016) and has failed doxycycline, minocycline, isotretinoin, clindamycin/rifampin, [...] last Monday, morning, and the day after [place]. Drainage from his buttock has been progressively [...] the trial drug. 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 He used to live in [facility]. Denies any sick contacts. He also reports worsening left leg weakness since May (he used to walk with a limp, now has to shuffle). He has both a dry cough that sometimes culminates in post-tussive emesis. On 09/12, he came in with a draining left thigh wound, dry cough and shortness of breath to the [facility] ED. He had some post-tussive emesis. He came in with a fever to 100.4 , tachycardia to 102. He was started on Vanc/Zosyn, got 2 L of NS, and got toradol and morphine for pain. No real culture data history for infections except for rare gram positive cocci in 2016. On 09/13, on arrival at [facility], denies any pain, but has an intermittent [...] as pt expressed interest in quitting smoking. [facility] Work Phone: 09-14-2024 Plan of care note The patient's goals for the shift include The clinical goals for the shift include patien twill remaini safe and free rom falls during shift [facility] 09-14-2024 Consult note Associated Order (s): [...] Cleansed;Packings;Site care 09/14/24 1211 Drainage Description [place];Purulent 09/14/241 Drainage Amount Large [...] left buttock wound with AMD packing strip (FAMILY COURT COUNSELLOR #[id number] or [id number]) Cover the surrounding abscess wounds with 2 sheets of Aquacel Ag (FAMILY COURT COUNSELLOR#[id number]) Cover the wounds with multiple ABD pads Xiomara Palmer RN CWON 09/14/2024 1:14 PM [facility] 09-14-2024 Consult note Associated Order (s): IP CONSULT TO ACUTE CARE SURGERY [facility] ACUTE CARE SURGERY - CONSULT Patient Name: [...] any questions Seen with Dr. Dequan Petty [facility] [address] CHIEF COMPLAINT/REASON FOR CONSULT: Patient has an [...] for evaluation and then was transferred to [facility] [place] more definitive management. Since admission here [...] End Date Taking? Authorizing Provider Study STOP-HS1 [id number] povorcitinib 45mg or 75mg tablet Take 1 tablet by mouth once daily. Preferably in the morning, with a full glass of water. 02/29/24 Kimber Last MD Study STOP-HS1 [id number] povorcitinib 45mg or 75mg tablet Take 1 tablet by mouth once daily. Preferably in the morning, with a full glass of water. 04/04/24 Kimber Last MD Study STOP-HS1 [id number] povorcitinib 45mg or 75mg tablet Take 1 tablet by mouth once daily. Preferably in the morning, with a full glass of water. 04/12/24 Kimber Last MD Study STOP-HS1 [id number] povorcitinib 45mg or 75mg tablet Take 1 tablet by mouth once daily. Preferably in the morning, with a full glass of water. 05/27/24 Marlon Christiansen MD Study STOP-HS1 [id number] povorcitinib 45mg or 75mg tablet Take 1 tablet by mouth once daily. Preferably in the morning, with a full glass of water. 07/08/24 Marlon Christiansen MD Study STOP-HS1 [id number] povorcitinib 45mg or 75mg tablet Take 1 tablet by mouth once daily. Preferably in the morning, with a full glass of water. 08/20/24 Marlon Christiansen MD Study STOP-HS1 [id number] povorcitinib 45mg, 75mg or placebo tablet Take 1 tablet by mouth once daily. Preferably in the morning, with a full glass of water. 12/11/23 Kimber Last MD Study STOP-HS1 [id number] povorcitinib 45mg, 75mg or placebo tablet Take 1 tablet by mouth once daily. Preferably in the morning, with a full glass of water. 12/29/23 Kimber Last MD Study STOP-HS1 [id number] povorcitinib 45mg, 75mg or placebo tablet Take 1 tablet by mouth once daily. Preferably in the morning, with a full glass of water. 01/16/24 Kimber Last MD Study STOP-HS1 [id number] povorcitinib 45mg, 75mg or placebo tablet Take [...] Prasanth Baires MD Attending Acute Care Surgery [facility] Work Phone: 09-14-2024 Consult note [...] and apremilast. He was being treated by [facility]. Pt reports that he has been on multiple therapies and was not able to list all the medications he has previously tried. He did recognize the names of the above medications. Acid Painter is unable to access paper charts for [...] at the time when talking to the appeals writer. Notes increased fatigue. Denies any fevers, [...] back on smoking. 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 Hospital Course - 09/12 he came in with a draining left thigh wound, dry cough, and shortness of breath to [facility] ED - Vitals: T 100.4, HR 102 - Labs: WBC 17.8, Hgb 8.9, platelets 568, CMP Cr 1.48, lactic acid 2 - CT abdomen/pelvis: subcutaneous edema and subcutaneous emphysema of the left buttock extending along the posterior thigh. Extension of fluid into the posterior deep intramuscular fascia of the posterior left thigh. - Vanc/zosyn started - toradol/morphine for pain - 09/13 transferred to [facility] - Labs: WBC 13.4, Hgb 7.8, platelets [...] Yellow, Dark-Yellow Appearance, Urine Clear Clear Specific [place], Urine 1.014 1.005 - 1.035 pH, Urine [...] and one with Ronna Carpenter at our [place] location. We will arrange outpatient follow-up The patient was seen and discussed with attending physician Dr. Adhikari. The assessment and plan was communicated to the care team. Thank you for the consultation and for the opportunity to contribute to the care of this patient. Danna Alves MD PGY2, Dermatology Epic chat (preferred) Team pager [phone] Jennifer Pena, Randi bela, P.Y., Mert Eubanks., Mónica Oakley, Latrell Ware, Amaris Mayen., Paolo Valdez., Cheyanne, T.R., Yue Cummings., Yue Roland. and Vishal, Aure., [...] decision making as documented in the note. [facility] Work Phone: 09-14-2024 Consult note [...] response, and signs/symptoms of toxicity. Alberto BeckwithD [facility] Work Phone: 09-13-2024 Emergency department Note Pt leaving [facility] ED at this time to go to . [facility] with EMS. [facility] 09-13-2024 Emergency department Note Pt leaving [facility] ED at this time to go to . [facility]ong[facility] with EMS. Report called to RN. RN informed vancomycin was stopped for transport. [facility] ETA 8pm transfer line called - pt will go to [facility]- 5016 bed A. Number for report [phone] [facility] Research Nurse called back. Per the Research Physician, the patient does not have to be transferred to [facility]. All that needs to be done is a "Biologic Medication" needs prescribed, and the patient can be admitted here. The patient is in an outpatient study. If any further questions, we can contact AMAN Hancock @ [phone]. Patient is in a study at hospital. He has provided a card for his physician and nurse in the study. I contacted the nurse "Karissa" and left a message @ [phone]. Patient is on the waiting list for and as of 0800 today there are still no rooms available at for this patient. Karissa called back and will contact her MD's over her and will get back with me. [facility] ED EMERGENCY DEPARTMENT ENCOUNTER Pt Name: Kevan [...] Procedure Abnormality Status --------- ------ Culture, Aerobic Bacteri...[[id number]] In process Anaerobic culture[[id number]] In process Please view results for these [...] with a treatment for HS (Study STOP-HS1 [id number] povorcitinib 45mg or 75mg tablet) [RADHA] 2206 I discussed with general surgery Dr. Marcus who agreed with antibiotics and admission and will likely need surgery at some point. Recommended admitting where the patient is currently on trial. [RADHA] 2308 About 5 minutes ago I discussed over the phone with Dr. Quintero from [facility] who accepted the admission. [RADHA] ED [...] Xiomara Kauffman MD JUAN Emergency Medicine Physician [facility] Xiomara Kauffman MD 09/12/24 7581 documented in this encounter [facility] 09-13-2024 Emergency department Note Report called to RN. RN informed vancomycin was stopped for transport. [facility] 09-13-2024 History and physical note Images from the original note were not included. History Of Present Illness Kevan La is a 49 y.o. male presenting with PMH of severe hidradenitis supprativa (disease on left buttock and gluteal fold) on STOP HS-301 trial (povorcitinib, small molecule JAK1 inhibitor) presenting with new wound infection from [facility] ED. He has a long-standing history of [...] last Monday, morning, and the day after [place]. Drainage from his buttock has been progressively [...] the trial drug. 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 He used to live in [facility]. Denies any sick contacts. He also reports worsening left leg weakness since May (he used to walk with a limp, now has to shuffle). He has both a dry cough that sometimes culminates in post-tussive emesis. On 09/12, he came in with a draining left thigh wound, dry cough and shortness of breath to the [facility] ED. He had some post-tussive emesis. He [...] Seminars and Arthritis and Rheumatism). [place] [facility] [place] any pain, but has an intermittent dry cough. His wound is draining large amounts of yellow/lieberman fluid. 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 #New wound infection with purulent drainage [...] Q6H -Fungitell, galactomannan, histoplasma, cryptococcal antigen -Consult [facility] trial team in AM for any other [...] decision making as documented in the note. [facility] Work Phone: 09-13-2024 History and physical note Images from the original note were not included. History Of Present Illness Kevan La is a 49 y.o. male presenting with PMH of severe hidradenitis supprativa (disease on left buttock and gluteal fold) on STOP HS-301 trial (povorcitinib, small molecule JAK1 inhibitor) presenting with new wound infection from [facility]. He has a long-standing history of [...] the trial drug. 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 He used to live in [facility]. Denies any sick contacts. He also reports worsening left leg weakness since May (he used to walk with a limp, now has to shuffle). He has both a dry cough that sometimes culminates in post-tussive emesis. On 09/12, he came in with a draining left thigh wound, dry cough and shortness of breath to the [facility] ED. He had some post-tussive emesis. He [...] Seminars and Arthritis and Rheumatism). [place] [facility] [place], denies any pain, but has an intermittent dry cough. His wound is draining large amounts of yellow/lieberman fluid. 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 #New wound infection with purulent drainage [...] in the note. documented in this encounter [facility] Work Phone: 09-13-2024 Emergency department Note [facility] ETA 8pm [facility] 09-13-2024 Emergency department Note transfer line called - pt will go to [facility]- 5016 bed A. Number for report [phone] [facility] 09-13-2024 Consult note Formatting of th [...] creatinine, and vancomycin levels interfaced automatically to [employer] and data has been analyzed and interpreted. [...] RPh Clinical Pharmacist Available via Secure Chat [facility] 09-13-2024 Consult note Formatting of th is [...] creatinine, and vancomycin levels interfaced automatically to [employer] and data has been analyzed and interpreted. [...] DATE: 09/13/24 TIME: 11:05 AM Melva Mcdonald [facility] Clinical Pharmacist Available via Secure Chat documented in this encounter [facility] 09-13-2024 Emergency department Note [facility] Research Nurse called back. Per the Research Physician, the patient does not have to be transferred to [facility]. All that needs to be done is a "Biologic Medication" needs prescribed, and the patient can be admitted here. The patient is in an outpatient study. If any further questions, we can contact AMAN Hancock @ [phone]. [facility] 09-13-2024 Emergency department Note Patient is in a study at [facility]. He has provided a card for his physician and nurse in the study. I contacted the nurse "Karissa" and left a message @ [phone]. Patient is on the waiting list for and as of 0800 today there are still no rooms available at for this patient. Karissa called back and will contact her MD's over her and will get back with me. [facility] 09-12-2024 Physician Emergency department Note [facility] ED EMERGENCY DEPARTMENT ENCOUNTER Pt Name: Kevan [...] Procedure Abnormality Status --------- ------ Culture, Aerobic Bacteri...[[id number]] In process Anaerobic culture[[id number]] In process Please view results for these [...] 1,000 mL (0 mL IntraVENous Stopped 09/12/24 215) piperacillin-tazobactam (Zosyn) 4,500 mg in sodium chloride [...] clinical trial is. As below, accepted by [facility]. I discussed test results and plan [...] with a treatment for HS (Study STOP-HS1 [id number] povorcitinib 45mg or 75mg tablet) [RADHA] 2206 I discussed with general surgery Dr. Marcus who agreed with antibiotics and admission and will likely need surgery at some point. Recommended admitting where the patient is currently on trial. [RADHA] 2308 About 5 minutes ago I discussed over the phone with Dr. Quintero from [facility] who accepted the admission. [RADHA] ED [...] Xiomara Kauffman MD JUAN Emergency Medicine Physician [facility] Xiomara Kauffman MD 09/12/24 2341 [facility] 08-20-2024 History of Present illness Narrative Patient seen for Week 36 of STOP HS-301 trial by Marlon Christiansen MD No serious adverse events or major changes in concomitant medications noted. Please see physical copy of notes located in subject binder for additional information. documented in this encounter [facility] Work Phone: 04-04-2024 History of Present illness Narrative Patient seen for Unscheduled Visit of STOP HS-301 trial by Kimber Last MD No serious adverse events or major changes in concomitant medications noted. Please see physical copy of notes located in subject binder for additional information. documented in this encounter [facility] Work Phone: Evaluation note Diagnosis Hidradenitis suppurativa- Primary Hidradenitis [facility] Clinical trial participant- Primary Clinical trial participant documented in this encounter [facility] Work Phone: Evaluation note* Diagnosis Clinical trial participant documented in this encounter [facility] Work Phone: Evaluation note* Diagnosis Clinical trial participant documented in this encounter [facility] Work Phone: Evaluation note* Diagnosis Clinical trial participant- Primary documented in this encounter [facility] Work Phone: Evaluation note* Diagnosis Clinical trial participant- Primary documented in this encounter [facility] Work Phone: Evaluation note* Diagnosis Clinical trial participant- Primary documented in this encounter [facility] Work Phone: [phone] note* Diagnosis Clinical trial participant- Primary documented in this encounter [facility] Work Phone: [phone] note* Diagnosis Clinical trial participant- Primary documented in this encounter [facility] Work Phone: [phone] note* Diagnosis Clinical trial participant documented in this encounter [facility] Work Phone: [phone] note* Diagnosis Clinical trial participant- Primary documented in this encounter [facility] Work Phone: [phone] note* Diagnosis Clinical trial participant- Primary documented in this encounter [facility] Work Phone: [phone] note* Diagnosis Buttock wound, left, initial encounter- Primary Sepsis, due to unspecified organism, unspecified whether acute organ dysfunction present (HCC) Hidradenitis suppurativa Hidradenitis [facility] Diagnosis Wound infection- Primary Posttraumatic wound infection not elsewhere classified Wound infection Posttraumatic wound infection not elsewhere classified Nausea Nausea alone Constipation, unspecified constipation type Viral infection Smoking Tobacco use disorder Hidradenitis suppurativa Hidradenitis documented in this encounter [facility] Work Phone: [phone] note* Diagnosis Wound infection- Primary Posttraumatic wound infection not elsewhere classified Wound infection Posttraumatic wound infection not elsewhere classified Nausea Nausea alone Constipation, unspecified constipation type Viral infection Smoking Tobacco use disorder Hidradenitis suppurativa Hidradenitis documented in this encounter [facility] Work Phone: [phone] note* Diagnosis Counseling on health promotion and disease prevention- Primary Other specified counseling Hidradenitis suppurativa Hidradenitis documented in this encounter [facility] Work Phone: [phone] note* Diagnosis Clinical trial participant- Primary documented in this encounter [facility] Work Phone: [phone] note* Diagnosis Gluteal abscess- Primary Cellulitis and [...] due to Staphylococcus documented in this encounter [facility] Work Phone: Evaluation note* Diagnosis Abscess- Primary Cellulitis and abscess of unspecified site Abscess Cellulitis and abscess of unspecified site documented in this encounter [facility] note* Diagnosis Gluteal abscess- Primary Cellulitis and [...] alone Opioid-induced constipation documented in this encounter [facility] Work Phone: Evaluation note* Diagnosis [...] left hip Hypercalcemia documented in this encounter [facility] Work Phone: Evaluation note* Diagnosis Abscess of left hip- Primary Abscess of left hip [facility] Diagnosis Gluteal abscess- Primary Cellulitis and [...] Rhinitis, unspecified type documented in this encounter [facility] Work Phone: Evaluation note* Diagnosis [...] of malignancy Hypercalcemia documented in this encounter [facility] Work Phone: Evaluation note* Diagnosis Sepsis, due to unspecified organism, unspecified whether acute organ dysfunction present (HCC)- Primary Sepsis, due to unspecified organism, unspecified whether acute organ dysfunction present (HCC) Abscess of left hip [facility] noteNo assessment information availableWWayne [facility] Work Phone: Evaluation note* Diagnosis Gluteal abscess- [...] limb, including hip documented in this encounter [facility] Work Phone: Evaluation note* Diagnosis [...] limb, including hip documented in this encounter [facility] Work Phone: Evaluation note* Diagnosis [...] limb, including hip documented in this encounter [facility] Work Phone: Evaluation note* Diagnosis [...] limb, including hip documented in this encounter [facility] Work Phone: Evaluation note* Diagnosis [...] limb, including hip documented in this encounter [facility] Work Phone: Evaluation note* Diagnosis [...] limb, including hip documented in this encounter [facility] Work Phone: Evaluation note* Diagnosis [...] change of dressing documented in this encounter [facility] Work Phone: Evaluation note* Diagnosis [...] pain medication therapy documented in this encounter [facility] Work Phone: Evaluation note* Diagnosis [...] left thigh- Primary documented in this encounter [facility] Work Phone: Evaluation note* Diagnosis [...] unspecified Bacteremia due to Staphylococcus Wound of gluteal cleft, left, subsequent encounter- Primary documented in this encounter [facility] Work Phone: Evaluation note* Diagnosis [...] due to Staphylococcus Wound of thigh- Primary Constipation due to pain medication therapy- Primary Other insomnia 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) Wound of thigh documented in this encounter [facility] Work Phone: Reason for referral (narrative)No reason for referral information availableWWayne HealthCare [facility] Work Phone: Reason for visit Narrative* Auth/Cert Specialty Diagnoses / Procedures Referred By Contac t Referred To Contact Diagnoses Sepsis Procedures [place] [address] [place] [address] Phone: tel: fax: [facility] [address] [place] [place] [address] Referral ID Status Reason Start Date Expiration Date Visits Re quested Visits Authorized [id number] 1 1 [facility] Work Phone: Rekraw for visit Narrative* Auth/Cert (Routine) Specialty Diagnoses / Procedures Referred By Contac t Referred To Contact Diagnoses Gluteal abscess Gluteal mass vs abscess [place] [address] [place] [address] Phone: tel: fax: [facility] [place] [address] [address] [place] [address] Phone: tel: Referral ID Status Reason Start Date Expiration Date Visits Re quested Visits Authorized [id number] 1 1 [facility] Work Phone: Rerkgl for visit Narrative* SCC Consult (Routine) - Authorized Specialty Diagnoses / Procedures Referred By Contac t Referred To Contact Hematology and Oncology Diagnoses Squamous [place] [address] [place] [address] Phone: tel: fax: [place] [address] [place] [id number] Phone: tel: fax: Referral ID Status Reason Start Date Expiration Date Visits Requested Visits Authorized [id number] Authorized Specialty Services Required 11/19/2024 11/19/2025 1 1 [facility] Work Phone: Rerbvs for visit Narrative* Auth/Cert Specialty Diagnoses / Procedures Referred By Contac t Referred To Contact Diagnoses [place] [address] [place] [address] Phone: tel: fax: [facility] [address] [employer] [place] [address] Referral ID Status Reason Start Date Expiration Date Visits Re quested Visits Authorized [id number] 1 1 [facility] Work Phone: reason for visit Narrative* SCC Consult (Routine) - Authorized Specialty Diagnoses / Procedures Referred By Contac t Referred To Contact Palliative Medicine / Hematology and Oncology Diagnoses Cancer associated pain Omaira Clayton, PERFORATOR-SHAREPOINT SPECIALIST [address] [place] [address] Phone: tel: fax: Referral ID Status Reason Start Date Expiration Date Visits Requested Visits Authorized [id number] Authorized Specialty Services Required 11/25/2024 11/25/2025 1 1 [facility] Work Phone: Reason for Referral Specialty Diagnoses / Procedures Referred By Contac t Referred To Contact Diagnoses Clinical trial participant Procedures ECG 12 lead (Ancillary Performed) [place] [id number] [address] [facility] Department of Dermatology [place] [id number] Referral ID Status Reason Start Date Expiration Date V isits Requested Visits Authorized [id number] Authorized 02/29/2024 02/28/2025 1 1 Advance Directives [...] Reason for Visit Chief Complaint Admit Date CORRECTION LAB WORK October 24, 2024 5:00am Chief Complaint Admit Date CORRECTION LAB WORK October 24, 2024 5:00am CORRECTION LAB WORK December 04, 2024 5 :00am Chief Complaint Admit Date CORRECTION LAB WORK February 18, 2025 5:0 0am CORRECTION LAB WORK February 20, 2025 5:0 0am CORRECTION LAB WORK March 12, 2025 5: 00am CORRECTION LAB WORK March 18, 2025 9:0 0pm Additional Source Comments Reason for Visit (unrecogniz ed section and content) Reason Comments Wound Check Specialty Diagnoses / Procedures Referred By Contac t Referred To Contact Diagnoses Abscess of left hip Procedures . Juvenal Mathur MD [address] [address] Phone: tel: fax: [facility] [address] [place] [phone] Phone: tel: Referral ID Status Reason Start Date Expiration Date Visits Re quested Visits Authorized [id number] 1 1 Specialty Diagnoses / Procedures Referred By Contac t Referred To Contact Diagnoses Clinical trial participant Procedures ECG 12 lead (Ancillary Performed) Myles Lutz MD PhD [id number] [facility] [place] [address] Referral ID Status Reason Start Date Expiration Date V isits Requested Visits Authorized [id number] Authorized 02/29/2024 02/28/2025 1 1 Reason Comments Dehydration Fatigue Patient arrived to [facility] c/o dehydration and fatigue for a few days. Also c/o cough. Specialty Diagnoses / Procedures Referred By Adrian melgar Referred To Contact Diagnoses . Procedures . [address] [address] Phone: tel: [facility] ED [address] [place] [address] Phone: tel: Referral ID Status Reason Start Date Expiration Date Visits Re quested Visits Authorized [id number] 1 1 Reason Comments Wound Check Pt arrives from SNF for possible sepsis. Had wound on buttock drained at in Sep. Has not had IV antibiotics at facility. Hx of rare skin condition with frequent abscesses. Aox4. Some N/V. Hypotensive 80-90 systolic. Reason Comments Follow-up Reason Comments Wound Infection Pt arrives by [facility] in [place], [facility] pt has had wound infection since September, pt stood up out of bed last night and it started bleeding and having a foul odor last night. Specialty Diagnoses / Procedures Referred By Adrian melgar Referred To Contact Diagnoses Sepsis, due to unspecified organism, unspecified whether acute organ dysfunction present (HCC) Procedures . Clarita Hay, [address] [facility] [place] [address] Phone: tel: fax: [facility] EMERGENCY DEPT [address] [place] [id number] Phone: tel: Referral ID Status Reason Start Date Expiration Date Visits Re quested Visits Authorized [id number] 1 1 Reason Comments OTV In house [...] Kristy Montes RN)223 (Stopped - Provider: Kristy Montes RN) piperacillin-tazobactam [...] 2038 (New Bag - Provider: Fidel Pan RN)215 (Stopped - Provider: Kristy Montes RN) sodium [...] IntraVENous, IMG once PRN, contrast, Starting on Mon09/12/24 at 3, For 1 dose 2132 (Given - Provider: [...] sedation for opioid reversal - MUST notify director of aviation provider immediately after first dose, may give [...] RN) 0902 (Given - Provider: Ronald Adair, AMNA)1515 (Due)2315 (Due) cetirizine (ZyrTEC) tablet 10 mg [...] Armando Orozco RN) 1632 (Given - Provider: Zlueyma Sanchez RN) 1600 (Due) oxyCODONE (Roxicodone) immediate [...] (Given - Provider: Jose Armando Orozco RN) 09 (Given - Provider: Ronald Adair [...] 2009 (Given - Provider: Carley Arevalo RN) 825 (Given - Provider: Jose Armando Orozco RN) [...] Carley Arevalo RN)1129 (Not Given - Provider: Zlueyma Sanchez RN - Reason: See Provider Order) [...] to cressing change.)2201 (Given - Provider: Carley Arevalo RN) 0506 [...] First dose on Mon10/19/24 at 0800, Mini-Bag Plus/ADD-Chicken bag, Suspected Indication (Select all that apply): [...] Gibbs RN) 0948 (Given - Provider: Latricia Rm, AMAN) clindamycin (Cleocin T) 1 % gel Topical, 2 times daily, First dose on Mon10/11/24 at 0045, Apply to HS wounds 0857 (Given - Provider: Palma Paul RN)2101 (Given - Provider: Ericka Perkins RN) 0900 (Given - Provider: Neva Gibbs, AMAN)2111 (Given - Provider: Kathryn Araujo RN) 0950 [...] Paul RN)1800 (Given - Provider: Palma Paul RN)3 (Given - Provider: Ericka Perkins RN) 0930 (Given - Provider: Neva Gibbs RN)1500 (Not Given - Provider: Neva Gibbs RN - Reason: Medication not available)2114 (Given - Provider: Kathryn Araujo RN) 0948 (Given - Provider: Latricia Rm RN)1500 (Due)2100 (Due) varenicline tartrate (Chantix) tablet 0.5 mg (COMPLETED)(Linked Group 1) 0.5 mg, oral, Daily, First dose on 10/19/24 at 1415, For 3 doses, Give 0.5 [...] treatment. 0930 (Given - Provider: Neva Gibbs RN)4 (Given - Provider: Kathryn Araujo RN) 0948 (Given - Provider: Latricia Rm RN)2100 (Due) varenicline tartrate (Chantix) tablet 1 mg(Linked Group 1) 1 mg, oral, 2 times daily, First dose on 10/26/24 at 0900, For 77 days, Increased dose [...] Treadwell RN) 0511 (Given - Provider: Jamison Maldonado, AMAN)1347 (Given - Provider: Sabrina Ricks RN)2105 (Given - Provider: Chuck Cisneros RN) enoxaparin [...] hour of each other unless specifically ordered. 1525 (Given - Provider: Allison Treadwell RN) ondansetron (Zofran) injection 4 mg (COMPLETED) 4 mg, IntraVENous, Once, On Mon11/08/24 at 1515, For 1 dose 1525 (Given - Provider: Allison Treadwell RN) oxyCODONE [...] dose 1808 (New Bag - Provider: Allison Treadwell, AMAN)1908 (Stopped - Provider: Mary Mackey, AMAN) vancomycin (Vancocin) 1,000 mg in sodium chloride 0.9 % 250 mL IVPB 1,000 mg, IntraVENous, at 166.7 mL/hr, Administer over 90 Minutes, Every 12 hours, First dose on Mon11/09/24 at 0500, ADD-Chicken bag, Suspected Indication (Select all that apply): Skin and Soft Tissue Infection 0512 (New Bag - Provider: Jamison Maldonado, AMAN)0642 (Stopped - Provider: María Yang, RN)1848 (New Bag - Provider: María Yang, RN)2018 (Stopped - Provider: Chuck Cisneros, RN) vancomycin in NS (Vancocin) IVPB 2,000 mg (COMPLETED) 2,000 mg (rounded from 2,080 mg = 20 mg/kg 104 kg), IntraVENous, at 250 mL/hr, Administer over 120 Minutes, Once, On Mon11/08/24 at 1555, For 1 dose, premix bag, Suspected Indication (Select all that apply): Skin and Soft Tissue Infection 1701 (New Bag - Provider: Allison Treadwell, AMAN)210 (Stopped - Provider: Allison Treadwell, AMNA) PRN Medication Order 11/08/2024 11/09/2024 11/10/2024 iopamidol [...] pupils, RR < 8; notify primary team director of aviation if used ondansetron (Zofran) injection 4 mg(Linked [...] Treadwell RN)0910 (See Alternative - Provider: María Yang RN)1848 (See Alternative - Provider: María Yang RN) 0156 (See Alternative - Provider: Chuck Cisneros, RN) oxyCODONE (Roxicodone) immediate release tablet 5 mg(Linked Group 2) 5 mg, Oral, Every 4 hours PRN, severe pain (7-10), Starting on Mon11/08/24 at 2027 0237 (Given - Provider: Allison Treadwell RN)0910 (Given - Provider: María Yang RN)1848 (Given - Provider: María Yang RN) 0156 (Given - Provider: Chuck Cisneros, [...] LPN)2036 (Given - Provider: Lena Ambriz RN) 0906 [...] Comment: workflow)1006 (Given - Provider: Dani Serrato, AMAN)2036 (Given - Provider: Lena Ambriz RN) 1057 (Given - Provider: Elsy Diaz, AMAN)2100 (Due) enoxaparin (Lovenox) syringe 40 mg 40 [...] Goldsmith RN)1340 (Given - Provider: Elsy Diaz RN)195 (Given - Provider: Ericka Mary RN) 0454 (Given - Provider: Ericka Mary RN)0953 (Given - Provider: Dani Serrato RN)2333 (Given - Provider: Lena Ambriz RN) 0916 (Given - Provider: Elsy Diaz RN)1602 (Given - Provider: Elsy Diaz, AMAN) naloxone (Narcan) injection 0.2 mg 0.2 mg, [...] Ericka Mary RN)1458 (Given - Provider: Dani Serrato, AMAN)2032 (Given - Provider: Lena Ambriz, AMAN) 0330 (Given - Provider: Lena Ambriz RN)0714 [...] Use: Prophylaxis-DVT/PE, Indications: Prophylaxis of Venous Thromboembolism 09 (Given - Provid er: Margarita Stevens RN) [...] hours, First dose (after last modification) on Mon12/07/24 at 1300, Dosage or interval has been [...] Other - Comment: not given by shift supervisor film processing - asked pharmacy to retime)1056 (New Bag [...] sedation for opioid reversal - MUST notify director of aviation provider immediately after first dose, may give [...] Mcfadden, AMAN) 0135 (Given - Provider: Carmina Corona, AMAN)0830 (Given - Provider: Shanel Norwood, AMAN)1730 (Due) [...] Ponce RN) 0846 (Given - Provider: Rosa Mcfadden RN)2121 (Given - Provider: Carmina Corona, AMAN) 0826 (Given - Provider: Shanel Norwood RN)2100 [...] 10 mg, oral, Daily, First dose on Key 12/19/24 at 0900 0827 (Given - Provider: Shanel [...] 0847 (Given - Provider: Rosa Mcfadden RN) 0827 (Given - Provider: Shanel Norwood RN) clindamycin (Cleocin T) 1 % gel Topical, 2 times daily, First dose on Mon12/07/24 at 2100, Apply to buttock 1042 (Given - Provider: Gaby Wyman RN)2223 (Given - Provider: Sharron Ponce, AMAN) 0851 (Given - Provider: Rosa Mcfadden RN) 0536 (Given - Provider: Carmina Corona RN)1300 (Due - Provider: Shanel Norwood RN)2100 (Due) enoxaparin (Lovenox) syringe 40 mg 40 mg, subcutaneous, Daily, First dose on Mon12/07/24 at 1700 0915 (Given - Provider: Gaby Wyman RN) 0848 (Given - Provider: Rosa Mcfadden, AMAN) 0827 (Given - Provider: Shanel Norwood, AMAN) folic acid (Folvite) tablet 1 mg 1 [...] Rosa Mcfadden RN)2120 (Given - Provider: Carmina Corona, AMAN) 08 (Given - Provider: Shanel Norwood, AMAN)2099 (Due) lactated Ringer's bolus 1,000 mL (COMPLETED) 1,000 mL, intravenous, at 500 mL/hr, Administer over 2 Hours, Once, On Mon12/18/24 at 1100, For 1 dose 1054 (New Bag - Provider: Rosa Mcfdaden RN)1138 (Rate/Dose Verify - Provider: Rosa Mcfadden RN)1254 (Stopped - Provider: Rosa Mcfadden RN) lidocaine (Xylocaine) 10 mg/mL (1 %) injection 0.1 mL 0.1 mL, subcutaneous, Once, On Key 12/12/24 at 1200, For 1 dose, Recovery (only), To be used for IV insertion ONLY melatonin tablet 3 mg 3 mg, oral, Nightly, First dose on 12/07/24 at 2100 2035 (Given - Provider: Sharron Ponce RN) 2120 [...] Sharron Ponce RN)1411 (Given - Provider: Rosa Mcfadden RN)212 (Given - Provider: Carmina Corona RN) 0514 [...] Rosa Mcfadden RN - Reason: Patient/family refused) 0827 (Given - Provider: Shanel Norwood, AMAN) sennosides-docusate [...] RN)2035 (Given - Provider: Sharron Ponce RN) 0846 (Given - Provider: Rosa Mcfadden, AMAN)1449 (Given - Provider: Rosa Mcfadden, AMAN)2252 (Given - Provider: Carmina Corona RN) 0827 (Given - Provider: Shanel Norwood, AMAN)1500 (Due)2099 (Due) varenicline tartrate (Chantix) tablet 1 mg 1 mg, oral, 2 times daily, First dose on 12/07/24 at 2100, Give with meals and with a full glass of water. 0908 (Given - Provider: Gaby Wyman RN)2035 (Given - Provider: Sharron Ponce, AMAN) 0847 (Given - Provider: Rosa Mcfadden, AMAN)2122 (Given - Provider: Carmina Corona RN) 0827 [...] Mcfadden, RN) 1103 (Given - Provider: Shanel Norwood, AMAN) ondansetron (Zofran) injection 4 mg(Linked Group 1) [...] Gaby Wyman RN)1137 (Given - Provider: Gaby Wyman RN)1437 (Given - Provider: Gaby Wyman RN)2036 (Given [...] Carmina Corona RN)0825 (Given - Provider: Shanel Norwood, RN)1246 (Given - Provider: Shanel Norwood RN) [...] Barry Man RN)0447 (Stopped - Provider: Barry Mna, RN)0924 (New Bag - Provider: Sunni Meehan [...] Kang Dickson RN)1434 (Stopped - Provider: Kang Dickson, AMAN) sodium hypochlorite (Dakin's (HALF-Strength)) 0.25 % external [...] Wise RN)0518 (New Bag - Provider: Diana Wise, RN)0900 (Stopped - Provider: Wili López RN) norepinephrine (Levophed) 4 mg in 0.9% sodium chloride 250 mL infusion (Gmf-Sjwula-Hzgzf) (premix) (CANCELED) 2-50 mcg/min (7.5-187.5 mL/hr), IntraVENous, [...] sedation for opioid reversal - MUST notify director of aviation provider immediately after first dose, may give [...] Mary Mackey, AMAN)2001 (Given - Provider: Barry Man, AMAN) 0238 (Given - Provider: Barry Man, RN)0652 (Given - Provider: Barry Man, AMAN)2127 [...] Care Teams (unrecognized sec tion and content) Tanbark Peeler Relationship Specialty [place] [address] [place], [place] [id number] Consulting Physician Hematology and Oncology 11/29/24 Tanbark Peeler Relationship Specialty [place] [address] [place], [place] [id number] Consulting Physician Hematology and Oncology 11/29/24 Tanbark Peeler Relationship Specialty [place] [address] [place], [place] [id number] Consulting Physician Hematology and Oncology 11/29/24 Team Status: Active Member Role Status Dates Julio SAMANIEGO Primary Care Provider Active Team Status: Inactive Member Role Status Dates Julio SAMANIEGO Primary Care Provider Active S tart: October 24, 2024 End: October 24, 2024 Juloi SAMANIEGO Attending Provider Active Star t: October [...] December 04, 2024 End: December 04, 2024 Tanbark Peeler Relationship Specialty [place] [address] [place] [address] Consulting Physician Hematology and Oncology 11/29/24 Tanbark Peeler Relationship Specialty [place] [address] [place] [address] Consulting Physician Hematology and Oncology 11/29/24 Tanbark Peeler Relationship Specialty Start Date End Date Generic Provider, No [place] [address] PCP - General Printed Circuit Board Panels Trimmer 01/03/25 [place] [address] [place] [address] Consulting Physician Hematology and Oncology 11/29/24 Tanbark Peeler Relationship Specialty Start Date End Date Generic Provider, No [place] [address] PCP - General Printed Circuit Board Panels Trimmer 01/03/25 [place] [address] [place] [address] Consulting Physician Hematology and Oncology 11/29/24 Tanbark Peeler Relationship Specialty Start Date End Date Generic Provider, [place] [address] PCP - General Printed Circuit Board Panels Trimmer 01/03/25 [place] [address] [place] [address] Consulting Physician Hematology and Oncology 11/29/24 Tanbark Peeler Relationship Specialty Start Date End Date Generic Provider, No [place] [address] PCP - General Printed Circuit Board Panels Trimmer 01/03/25 [place] [address] [place] [address] Consulting Physician Hematology and Oncology 11/29/24 Tanbark Peeler Relationship Specialty Start Date End Date Generic Provider, [place] [address] PCP - General Printed Circuit Board Panels Trimmer 01/03/25 [place] [address] [place] [address] Consulting Physician Hematology and Oncology 11/29/24 Tanbark Peeler Relationship Specialty Start Date End Date Generic Provider, [place] [address] PCP - General Printed Circuit Board Panels Trimmer 01/03/25 [place] [address] [place] [address] Consulting Physician Hematology and Oncology 11/29/24 Tanbark Peeler Relationship Specialty Start Date End Date Generic Provider, [place] [address] PCP - General Printed Circuit Board Panels Trimmer 01/03/25 [place] [address] [place] [address] Consulting Physician Hematology and Oncology 11/29/24 Tanbark Peeler Relationship Specialty Start Date End Date Generic Provider, [place] [address] PCP - General Printed Circuit Board Panels Trimmer 01/03/25 [place] [address] [place] [address] Consulting Physician Hematology and Oncology 11/29/24 Tanbark Peeler Relationship Specialty Start Date End Date Generic Provider, [place] [address] PCP - General Printed Circuit Board Panels Trimmer 01/03/25 [place] [address] [place] [address] Consulting Physician Hematology and Oncology 11/29/24 [place] [address] [place] [address] Consulting Physician Hematology and Oncology 01/30/25 Tanbark Peeler Relationship Specialty Start Date End Date Generic Provider, No [place] [address] PCP - General Printed Circuit Board Panels Trimmer 01/03/25 [place] [address] [place] [address] Consulting Physician Hematology and Oncology 11/29/24 [place] [address] [place] [address] Consulting Physician Hematology and Oncology 01/30/25 Tanbark Peeler Relationship Specialty Start Date End Date Generic Provider, No [place] [address] PCP - General Printed Circuit Board Panels Trimmer 01/03/25 [place] [address] [place] [address] Consulting Physician Hematology and Oncology 11/29/24 [place] [address] [place] [address] Consulting Physician Hematology and Oncology 01/30/25 Tanbark Peeler Relationship Specialty Start Date End Date Generic Provider, No [place] [address] PCP - General Printed Circuit Board Panels Trimmer 01/03/25 [place] [address] [place] [address] Consulting Physician Hematology and Oncology 11/29/24 [place] [address] [place] [address] Consulting Physician Hematology and Oncology 01/30/25 Tanbark Peeler Relationship Specialty Start Date End Date Generic Provider, No Assigned PcpMD NONE [facility] [address] PCP - General Printed Circuit Board Panels Trimmer 01/03/25 [place] [address] [place] [address] Consulting Physician Hematology and Oncology 11/29/24 [place] [address] [place], [place] [phone] Consulting Physician Hematology and Oncology 01/30/25 Team Status: Active Member Role/Relationship Status Dates Julio SAMANIEGO Primary Care Provider Active Team Status: Active Member Role/Relationship Status Dates Julio SAMANIEGO Primary Care Provider Active S tart: February 18, 2025 Julio SAMANIEGO Attending Provider Active Star t: February 18, 2025 Team Status: Active Member Role/Relationship Status Dates Julio SAMANIEGO Primary Care Provider Active S tart: February 20, 2025 Julio SAMANIEGO Attending Provider Active Star t: February 20, 2025 Team Status: Active Member Role/Relationship Status Dates Julio SAMANIEGO Primary Care Provider Active S tart: March 12, 2025 Julio SAMANIEGO Attending Provider Active Star t: March 12, 2025 Team Status: Inactive Member Role/Relationship Status Dates Julio SAMANIEGO Primary Care Provider Active S tart: March 18, 2025 End: March 18, 2025 Julio SAMANIEGO Attending Provider Active Star t: March 18, 2025 End: March 18, 2025 (unrecognized sect ion and content) No Status Records FoundNo Status Records FoundNo Status Records FoundNo Status Records FoundNo Status Records Found INFORMATION SOURCE (unrecogn ized section and content) DATE CREATED AUTHOR 12/21/2024 [facility] DATE CREATED AUTHOR AUTHOR'S ORGANIZ ATION 12/31/2024 [facility] DATE CREATED AUTHOR AUTHOR'S ORGANIZ ATION 03/28/2025 [facility] DATE CREATED AUTHOR AUTHOR'S ORGANULI ATION 04/18/2025 [facility] DATE CREATED AUTHOR AUTHOR'S ORGANIZ ATION 04/20/2025 [facility] Goals (unrecognized section and content) Goals may be documented in a n alternate sectionGoals may be documented in an alternate sectionGoals may be documented in an [...] BE BASED ON THE PRIMARY CLINICAL RECORDS. [employer] [facility]. provides no warranty or guarantee of the accuracy or completeness of information in this document.
== END ==
LOC: OLS.ACW300 16:00
PROVIDERS: PCP Family Medicine; Referring Provider Family Medicine; Visit Provider Family Medicine
DX: S31.829D Unspecified open wound of left buttock, subsequent encounter (principal); R27.9 Unspecified lack of coordination; R53.1 Weakness; B45.1 Cerebral cryptococcosis; Z93.3 Colostomy status
CPT/HCPCS: 87070; 87077; 87186; 87205

== ENCOUNTER → 2025-04-28 04:00 | Outpatient (REF) | payer MEDICAID, SELFPAY ==
--- OUTSIDE RECORDS SUMMARY | 2025-04-28 04:51 | XMS RPT_ITS | CCD ---
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 Role Phone Unavailable Primary Care Provider Unavailbry Jiang MD, Sreedhar Yousif Unavailable Sreedhar Jiang MD Unavailable Julio Hare Primary Care Provider Unavail able Julio Hare Attending Provider UnavailJUVENAL Tompkins Attending Unavailable JUVENAL MATHUR Admitting Unavailable ARBEN FERNANDEZ Attending Unavailabl CLARITA Ingram Admitting Unavailable PAULINO LARIOS Admitting Unavailable PAULINO LARIOS Attending Unavailable XIOMARA KAUFFMAN Attending Unavailable Generic Provider , No Assigned Pcp Primary Car e Provider Unavailable Generic Provider , No Assigned Pcp Primary Car e Provider Unavailable Tyree NIELSEN, Swathi Unavailable [phone] Generic Provider , No Assigned Pcp Primary Car e Provider Unavailable KIMBER LAST Attending Unavailable KIMBER LAST Attending Unavailable KIMBER LAST Attending Unavailable MARLON CHRISTIANSEN Attending Unavailable MARLON CHRISTIANSEN Attending Unavailable MARLON CHRISTIANSEN Attending Unavailable DEAN JALLOH Attending Unavailable GENERIC PROVIDER, NO ASSIGNED PCP Primary Care Unavailable KRIS REN Attending Unavailable XIOMARA KAUFFMAN Referring Unavailable ANKIT NINO Admitting Unavailable MICA LY Attending Unavailable GENERIC PROVIDER, NO ASSIGNED PCP Primary Care Unavailable GILBERT SYLVESTER Admitting Unavailable DELGADO RENEE Consulting Unavailable FIDEL CLARKE Attending Unavailable GENERIC PROVIDER, NO ASSIGNED PCP Primary Care Unavailable BALDOMERO WILSON Admitting Unavailabl e FER KENNEDY Referring Unavailable HEATHER LACKEY Attending Unavailable GENERIC PROVIDER, NO ASSIGNED PCP Primary Care Unavailable SREEDHAR JIANG Attending Unavailable BROOKE, GILBERT S Referring Unavailable LATRICIA SCHROEDER Referring Unavailabl e GERMAINESTOYA L Admitting Unavailable MACK FRIAS Attending Unavailable GENERIC PROVIDER, NO ASSIGNED PCP Primary Care Unavailable LYNETTE SEGOVIA Referring Unavailable SREEDHAR JIANG Attending Unavailable APOLINAR, IRIS Y Referring Unavailable APOLINAR, IRIS Y Referring Unavailable APOLINAR, IRIS Y Referring Unavailable CURTIS MCFARLANE Admitting Unavailable CURTIS MCFARLANE Attending Unavailable WILLOW FRANCO Referring Unavailable KOGN MINA Admitting Unavailable KONG MINA Attending Unavailable [...] NO ASSIGNED PCP Primary Care Unavailable Julio Hare Primary Care Provider Unavail able Julio Hare Attending Provider Unavailabl e Julio Hare Primary Care Unavailable Julio Hare Attending Unavailable Julio Hare Primary Care Unavailable Julio Hare Attending Unavailable Julio Hare Attending Unavailable Julio Hare Primary Care Unavailable Julio Hare Primary Care Unavailable Julio Hare Attending Unavailable Julio Hare Primary Care Unavailable Julio Hare Attending Unavailable Constance SAMANIEGO, Julio Primary Care Unavailable Julio Hare Attending Unavailable Constance SAMANIEGO, Julio Primary Care Unavailable Julio Hare Attending Unavailable Allergies Allergy Classification Reported Allergen(s) Allergy Type Date of Onset Reaction(s) Facility (8 sources) Bananas; Translations: [BANANA] Propensity to adverse reactions 5 Itching [facility] (14 sources) Banana Extract Drug Allergy 5 Itching [facility] (1 source) ALLERGIES NOT ON FILE; Translations: [ALLERGIES NOT ON FILE] Propensity to adverse reactions (disorder) [facility] 3 Repository Medications Current Medications Medication [...] D3, (VITAMIN D3 ORAL) (1 source) take 22505 [IU] by mouth once daily cholecalciferol, vitamin [...] Active docusate sodium 50 mg / sennosides, care home 8.6 mg oral tablet (20 sources) Start: [...] (11 sources) take 1 tablet by barbara once daily ferrous sulfate 325 (65 Fe) [...] a day. As directed. Suspended Study STOP-HS1 [id number] povorcitinib 45mg or 75mg tablet (20 sources) Start: 09-30-2024 take 1 tablet by mouth once daily in the morning Study STOP-HS1 [id number] povorcitinib 45mg or 75mg tablet Indications: Clinical trial participant Take 1 tablet by mouth once daily. Preferably in the morning, with a full glass of water. 31 tablet 09/30/2024 Active Start: 08-20-2024 take 1 tablet by barbara th once daily in the morning Study STOP-[facility] [id number] povorcitinib 45mg or 75mg tablet Indications: Clinical trial participant Take 1 tablet by mouth once daily. Preferably in the morning, with a full glass of water. 62 tablet 08/20/2024 Active Start: 07-08-2024 take 1 tablet by barbara th once daily in the morning Study STOP-[facility] [id number] povorcitinib 45mg or 75mg tablet Indications: Clinical trial participant Take 1 tablet by mouth once daily. Preferably in the morning, with a full glass of water. 62 tablet 07/08/2024 Active Start: 05-27-2024 take 1 tablet by barbara th once daily in the morning Study STOP-[facility] [id number] povorcitinib 45mg or 75mg tablet Indications: Clinical trial participant Take 1 tablet by mouth once daily. Preferably in the morning, with a full glass of water. 62 tablet 05/27/2024 Active Start: 04-12-2024 take 1 tablet by barbara th once daily in the morning Study STOP-[facility] [id number] povorcitinib 45mg or 75mg tablet Indications: Clinical trial participant Take 1 tablet by mouth once daily. Preferably in the morning, with a full glass of water. 62 tablet 04/12/2024 Active Start: 04-04-2024 take 1 tablet by barbara th once daily in the morning Study STOP-[facility] [id number] povorcitinib 45mg or 75mg tablet Indications: Clinical trial participant Take 1 tablet by mouth once daily. Preferably in the morning, with a full glass of water. 31 tablet 04/04/2024 Active Start: 02-29-2024 take 1 tablet by barbara th once daily in the morning Study STOP-[facility] [id number] povorcitinib 45mg or 75mg tablet Indications: Clinical trial participant Take 1 tablet by mouth once daily. Preferably in the morning, with a full glass of water. 31 tablet 02/29/2024 Active Study STOP-[facility] [id number] povorcitinib 45mg, 75mg or placebo tablet (20 sources) Start: 02-09-2024 take 1 tablet by mouth once daily in the morning Study STOP-[facility] [id number] povorcitinib 45mg, 75mg or placebo tablet Indications: Clinical trial participant Take 1 tablet by mouth once daily. Preferably in the morning, with a full glass of water. 31 tablet 02/09/2024 Active Start: 01-16-2024 take 1 tablet by barbara th once daily in the morning Study STOP-HS1 [id number] povorcitinib 45mg, 75mg or placebo tablet Indications: Clinical trial participant Take 1 tablet by mouth once daily. Preferably in the morning, with a full glass of water. 31 tablet 01/16/2024 Active Start: 12-29-2023 take 1 tablet by barbara th once daily in the morning Study STOP-HS1 [id number] povorcitinib 45mg, 75mg or placebo tablet Indications: Clinical trial participant Take 1 tablet by mouth once daily. Preferably in the morning, with a full glass of water. 31 tablet 12/29/2023 Active Start: 12-11-2023 take 1 tablet by barbara th once daily in the morning Study STOP-[facility] [id number] povorcitinib 45mg, 75mg or placebo tablet Indications: Clinical trial participant Take 1 tablet by mouth once daily. Preferably in the morning, with a full glass of water. 31 tablet 12/11/2023 Active Start: 12-11-2023 take 1 tablet by barbara th once daily in the morning Study STOP-[facility] [id number] povorcitinib 45mg, 75mg or placebo tablet Indications: [...] nausea/vomiting, first line, Starting on Mon12/08/24 at 1549 [Order 1 End] [Order 2 [...] nausea/vomiting, second line, Starting on Mon12/08/24 at 1023 [Order 1 End] [Order 2 [...] line, Starting on Mon12/08/24 at 1023, Give NH if patient is unable to take orally [...] patient preference? Yes 20 ml albumin human, care home 250 mg/ml injection (2 sources) Human Serum [...] in 0.9% sodium chloride 250 mL infusion ([id number]) (premix) (2 sources) Start: 12-22-2024 End: 12-23-2024 2-50 mcg/min (7.5-187.5 mL/hr), IntraVENous, Continuous, Starting on Mon12/22/24 at 1605, For 24 hours, If Titrate Infusion? is No: Disregard instructions below. If Titrate infusion? is Yes: If rate LESS than 10 mcg/min: Titrate [...] and Soft Tissue Infection polyethylene glycol 3350 69003 mg powder for oral solution (20 sources) [...] hours, First dose on 11/09/24 at 0500, ADD-[place] bag, Suspected Indication (Select all that apply): [...] fatigue (2 sources) Weakness; Translations: [Weakness] Onset: 5 Episodic Malignant [...] (1 source) Drug therapy finding; Translations: [Other extermination inspector (current) drug therapy] 11-27-2024 Episodic Other aftercare (1 source) Long-term current use of drug therapy; Translations: [Encounter for therapeutic drug level monitoring] 03-10-2025 Episodic Other aftercare (2 sources) Encounter for therapeutic drug level monitoring; Translations: [Encounter for therapeutic drug level monitoring] Onset: Episodic Other aftercare (2 sources) prison (current) use of opiate analgesic; Translations: [prison (current) use of opiate analgesic] Onset: 5 Episodic Other connective tissue disease (1 source) Pain in left lower limb; Translations: [Pain in left leg] 10-20-2024 Episodic Other gastrointestinal disorders (1 source) Colostomy status; Translations: [Colostomy status] Onset: Chronic Other gastrointestinal disorders (3 sources) Constipation; [...] source) Other insomnia; Translations: [Other insomnia] Onset: Chronic Residual codes; unclassified (1 source) Postoperative [...] [OTV] Onset: 5 Unclassified (2 sources) WOUND INFECTION\HYPOTENSIVE Onset: 5 Past or Other Problems Problem [...] 11-27-2024 Episodic Other aftercare (2 sources) Other extermination inspector (current) drug therapy; Translations: [Other extermination inspector (current) drug therapy] Onset: 11-10-2024 Episodic Other [...] Microscopic observation Gram stain Nom (Unsp spec) [facility] Routine wound cultureOrdered By: Julio Nolasco on 03-18-2025 Microbial culture, routine Morganella morganii sp morgani Abnormal [facility] Anion gap in Serum or Plasma Ordered By: Julio Nolasco on 02-20-2025 Anion gap [Moles/Vol] 13 mmol/L 5- [facility] BUN/creatinine ratioOrdered By: Julio Nolasco on 02-20-2025 Urea nitrogen/Creatinine [Mass ratio] 11.2 mg/mg - [facility] Bilirubin, totalOrdered By: Julio Nolasco on 02-20-2025 Bilirubin [Mass/Vol] 0.25 mg/dL 0.00-1.30 [facility] Calculated very low density lipoprotein (VLDL) cholesterol measurementOrdered By: Julio Nolasco on 02-20-2025 Calculated very low density lipoprotein (VLDL) cholesterol measurement 60 mg/dL High 5-40 [facility] Carbon dioxide, total [Moles /volume] in Central venous bloodOrdered By: Julio Nolasco on 02-20-2025 CO2 [Moles/Vol] 22.1 mmol/L 21.0-32.0 [facility] Chloride assayOrdered By: Antwon Nolasco on 02-20-2025 Chloride [Moles/Vol] 103 mmol/L 98-108 [facility] Erythrocyte distribution wid th ratioOrdered By: Julio Nolasco on 02-20-2025 Erythrocyte distribution width (RBC) [Ratio] 19.9 % High 11.6-14.6 [facility] Erythrocyte distribution wid th standard deviationOrdered By: Julio Nolasco on 02-20-2025 Erythrocyte distribution width (RBC) [Ratio] 57.8 fl High 35.1-43.9 [facility] Glomerular filtration rate ( GFR) estimation/1.73 sq m using serum, plasma, or whole bOrdered By: Julio Nolasco on 02-20-2025 GFR/1.73 sq M.predicted among non-blacks MDRD (S/P/Bld) [Vol rate/Area] 62 mL/min/{1.73_m2} >60 [facility] Comment on above: mL/min/1.73m2 CKD-EP I Creatinine Equation (2020) Hematocrit Auto (Bld) [Volum e fraction]Ordered By: Julio Nolasco on 02-20-2025 Hematocrit (Bld) [Volume fraction] 25.1 % Low 40-54 [facility] Hemoglobin measurementOrdere d By: Julio Nolasco on 02-20-2025 Hemoglobin (Bld) [Mass/Vol] 7.7 g/dL Low 13.0-16.5 [facility] LDL calc ser/plasOrdered By: Julio Nolasco on 02-20-2025 Cholesterol in LDL [Mass/Vol] 94 mg/dL [facility] Comment on above: Jxdpefdlqo=607-113 m g/dL & Higher Lrkl=093 mg/dL or greater Laboratory - Chemistry and C hemistry - challengeOrdered By: Julio Nolasco on 02-20-2025 AST [Catalytic activity/Vol] 17 U/L <38 [facility] MCV (mean corpuscular volume ) determinationOrdered By: Julio Nolasco on 02-20-2025 MCV (RBC) [Entitic vol] 79.2 fL Low 80-94 [facility] Magnesium measurement (mass/ volume)Ordered By: Julio Nolasco on 02-20-2025 Magnesium (Unsp spec) [Mass/Vol] 2.1 mg/dL 1.5-2.2 [facility] Mean corpuscular hemoglobin (MCH) determinationOrdered By: Julio Nolasco on 02-20-2025 MCH (RBC) [Entitic mass] 24.3 pg Low 27.0-32.0 [facility] Mean corpuscular hemoglobin concentration (MCHC) determinationOrdered By: Julio Nolasco on 02-20-2025 MCHC (RBC) [Mass/Vol] 30.7 g/dL Low 32-36 [facility] Mean platelet volume determi nationOrdered By: Julio Nolasco on 02-20-2025 Platelet mean volume (Bld) [Entitic vol] 9.4 fL 6.2-12.0 [facility] Platelet countOrdered By: Antwon Nolasco on 02-20-2025 Platelets (Bld) [#/Vol] 880 10*3/uL High 150-450 [facility] Comment on above: CRITICAL VALUE ADVALOS D TO GRIS RAMACHANDRAN02/20/25 0928 Ainsley Lara.RESULTS READ BACK BY SAME. Potassium measurement (mass/ volume)Ordered By: Julio Nolasco on 02-20-2025 Potassium (Unsp spec) [Mass/Vol] 4.7 mmol/L 3.3-5.1 [facility] RBC Auto (Bld) [#/Vol]Ordere d By: Julio Nolasco on 02-20-2025 RBC (Bld) [#/Vol] 3.17 10*6/uL Low 4.6-6.2 [facility] Screening total cholesterol/ high density lipoprotein (HDL) cholesterol ratioOrdered By: Julio Nolasco on 02-20-2025 Cholesterol.total/Choles terol in HDL [Mass ratio] 9.77 {ratio} [facility] Serum creatinine measurement (mass/volume)Ordered By: Julio Nolasco on 02-20-2025 Creatinine [Mass/Vol] 1.38 mg/dL High 0.70-1.20 [facility] Serum globulin measurementOr dered By: Julio Nolasco on 02-20-2025 Globulin (S) [Mass/Vol] 4.9 g/dL High 2.2-4.2 [facility] Serum glucose measurement (m ass/volume)Ordered By: Julio Nolasco on 02-20-2025 Glucose [Mass/Vol] 99 mg/dL 70-99 [facility] Serum or plasma alanine mora otransferase (ALT) measurementOrdered By: Julio Nolasco on 02-20-2025 ALT [Catalytic activity/Vol] 18 U/L <47 [facility] Serum or plasma albumin mervat urement (mass/volume)Ordered By: Julio Nolasco on 02-20-2025 Albumin [Mass/Vol] 2.9 g/dL Low 3.5-5.0 [facility] Serum or plasma albumin/glob ulin mass ratioOrdered By: Julio Nolasco on 02-20-2025 Albumin/Globulin [Mass ratio] 0.6 {ratio} Low 0.9-2.4 [facility] Serum or plasma alkaline cata sphatase measurementOrdered By: Julio Nolasco on 02-20-2025 ALP [Catalytic activity/Vol] 172 U/L High 40-129 [facility] Serum or plasma calcium mervat urement (mass/volume)Ordered By: Julio Nolasco on 02-20-2025 Calcium [Mass/Vol] 8.9 mg/dL 7.6-11.0 [facility] Serum or plasma cholesterol in HDL measurement (mass/volume)Ordered By: Julio Nolasco on 02-20-2025 Cholesterol in HDL [Mass/Vol] 18 mg/dL Low >40 [facility] Comment on above: National Cholesterol Education Program (NCEP) guidelines:<40 mg/dL: Low HDL-cholesterol (major risk factor for CHD)>= 60 mg/dL: High HDL-cholesterol (negative risk factor for CHD)HDL-cholesterol is affected by a number of factors, e.g. smoking, exercise, hormones, sex and age. Serum or plasma cholesterol measurement (mass/volume)Ordered By: Julio Nolasco on 02-20-2025 Cholesterol [Mass/Vol] 172 mg/dL <201 [facility] Comment on above: Cholesterol level, D esirable <200 mg/dLBorderline high cholesterol 200-239 mg/dLHigh cholesterol >=240 mg/dLRecommendations of the NCEP Adult Treatment Panel for the following risk-cutoff thresholds for the [place] population. Serum or plasma urea nitroge n measurement (mass/volume)Ordered By: Julio Nolasco on 02-20-2025 Urea nitrogen [Mass/Vol] 16 mg/dL 4-19 [facility] Sodium levelOrdered By: William Nolasco on 02-20-2025 Sodium [Moles/Vol] 138 mmol/L 133-145 [facility] TSH DL <= 0.005 mIU/L QnOrde red By: Julio Nolasco on 02-20-2025 TSH Qn 5.140 uIU/mL High 0.300-4.200 [facility] Total proteinOrdered By: Adolfo Nolasco on 02-20-2025 Protein [Mass/Vol] 7.8 g/dL 5.9-8.4 [facility] Triglycerides measurementOrd ered By: Julio Nolasco on 02-20-2025 Triglyceride [Mass/Vol] 300 mg/dL High <199 [facility] Comment on above: The drugs N-Acetylcy steine and Metamizole may falsely depress this assay. Normal range: <150 mg/dLBorderline High: 150-199 mg/dLHigh: 200-499 mg/dLVery High: >500 mg/dL White blood cell (WBC) count Ordered By: Julio Nolasco on 02-20-2025 WBC (Bld) [#/Vol] 10.7 10*3/uL 4.4-11.0 [facility] Anion gap in Serum or Plasma Ordered By: Julio Nolasco on 02-18-2025 Anion gap [Moles/Vol] 14 mmol/L 5-15 [facility] BUN/creatinine ratioOrdered By: Julio Nolasco on 02-18-2025 Urea nitrogen/Creatinine [Mass ratio] 13.2 mg/mg 10-20 [facility] Bilirubin, totalOrdered By: Julio Nolasco on 02-18-2025 Bilirubin [Mass/Vol] 0.30 mg/dL 0.00-1.30 [facility] Blood manual differential co mment interpretation (narrative result)Ordered By: Julio Nolasco on 02-18-2025 Manual differential comment Florencio (Bld) [Interp] SCANNED [facility] Comment on above: MARKED THROMBOCYTOSI S Calculated very low density lipoprotein (VLDL) cholesterol measurementOrdered By: Julio Nolasco on 02-18-2025 Calculated very low density lipoprotein (VLDL) cholesterol measurement 55 mg/dL High 5-40 [facility] Carbon dioxide, total [Moles /volume] in Central venous bloodOrdered By: Julio Nolasco on 02-18-2025 CO2 [Moles/Vol] 21.5 mmol/L 21.0-32.0 [facility] Chloride assayOrdered By: Antwon Nolasco on 02-18-2025 Chloride [Moles/Vol] 101 mmol/L 98-108 [facility] Erythrocyte distribution wid th ratioOrdered By: Julio Nolasco on 02-18-2025 Erythrocyte distribution width (RBC) [Ratio] 19.9 % High 11.6-14.6 [facility] Erythrocyte distribution wid th standard deviationOrdered By: Julio Nolasco on 02-18-2025 Erythrocyte distribution width (RBC) [Ratio] 56.9 fl High 35.1-43.9 [facility] Glomerular filtration rate ( GFR) estimation/1.73 sq m using serum, plasma, or whole bOrdered By: Julio Nolasco on 02-18-2025 GFR/1.73 sq M.predicted among non-blacks MDRD (S/P/Bld) [Vol rate/Area] 74 mL/min/{1.73_m2} >60 [facility] Comment on above: mL/min/1.73m2 CKD-EP I Creatinine Equation (2020) Hematocrit Auto (Bld) [Volum e fraction]Ordered By: Julio Nolasco on 02-18-2025 Hematocrit (Bld) [Volume fraction] 23.8 % Low 40-54 [facility] Hemoglobin A1c percentageOrd ered By: Julio Nolasco on 02-18-2025 HbA1c (Bld) [Mass fraction] 6.3 % High <5.7 [facility] Comment on above: Normal < 5.7 % Predi abetic 5.7 - 6.4 % Diabetic >or= 6.5 % Please note range changes. Hemoglobin measurementOrdere d By: Julio Nolasco on 02-18-2025 Hemoglobin (Bld) [Mass/Vol] 7.4 g/dL Low 13.0-16.5 [facility] LDL calc ser/plasOrdered By: Julio Nolasco on 02-18-2025 Cholesterol in LDL [Mass/Vol] 83 mg/dL [facility] Comment on above: Ujyohytqbo=261-641 m g/dL & Higher Bhax=463 mg/dL or greater Laboratory - Chemistry and C hemistry - challengeOrdered By: Julio Nolasco on 02-18-2025 AST [Catalytic activity/Vol] 18 U/L <38 [facility] MCV (mean corpuscular volume ) determinationOrdered By: Julio Nolasco on 02-18-2025 MCV (RBC) [Entitic vol] 79.1 fL Low 80-94 [facility] Magnesium measurement (mass/ volume)Ordered By: Julio Nolasco on 02-18-2025 Magnesium (Unsp spec) [Mass/Vol] 2.0 mg/dL 1.5-2.2 [facility] Mean corpuscular hemoglobin (MCH) determinationOrdered By: Julio Nolasco on 02-18-2025 MCH (RBC) [Entitic mass] 24.6 pg Low 27.0-32.0 [facility] Mean corpuscular hemoglobin concentration (MCHC) determinationOrdered By: Julio Nolasco on 02-18-2025 MCHC (RBC) [Mass/Vol] 31.1 g/dL Low 32-36 [facility] Mean platelet volume determi nationOrdered By: Julio Nolasco on 02-18-2025 Platelet mean volume (Bld) [Entitic vol] 9.5 fL 6.2-12.0 [facility] Platelet countOrdered By: Antwon Nolasco on 02-18-2025 Platelets (Bld) [#/Vol] 874 10*3/uL High 150-450 [facility] Potassium measurement (mass/ volume)Ordered By: Julio Nolasco on 02-18-2025 Potassium (Unsp spec) [Mass/Vol] 4.3 mmol/L 3.3-5.1 [facility] RBC Auto (Bld) [#/Vol]Ordere d By: Julio Nolasco on 02-18-2025 RBC (Bld) [#/Vol] 3.01 10*6/uL Low 4.6-6.2 [facility] Review by pathologistOrdered By: Julio Nolasco on 02-18-2025 Pathologist review Florencio (Unsp spec) [Interp] Reviewed [facility] Comment on above: Previous reported re sult: Laina galeana Edited by: LEANNE on 02/28/25:1554SEE REPORT IN PATIENT'S EMR AMENDED REPORT 02/28/25 1554 PATH REV previously reported as: Laina galeana Screening total cholesterol/ high density lipoprotein (HDL) cholesterol ratioOrdered By: Julio Nolasco on 02-18-2025 Cholesterol.total/Choles terol in HDL [Mass ratio] 9.57 {ratio} [facility] Serum creatinine measurement (mass/volume)Ordered By: Julio Nolasco on 02-18-2025 Creatinine [Mass/Vol] 1.19 mg/dL 0.70-1.20 [facility] Serum globulin measurementOr dered By: Julio Nolasco on 02-18-2025 Globulin (S) [Mass/Vol] 4.6 g/dL High 2.2-4.2 [facility] Serum glucose measurement (m ass/volume)Ordered By: Julio Nolasco on 02-18-2025 Glucose [Mass/Vol] 92 mg/dL 70-99 [facility] Serum or plasma alanine mora otransferase (ALT) measurementOrdered By: Julio Nolasco on 02-18-2025 ALT [Catalytic activity/Vol] 24 U/L <47 [facility] Serum or plasma albumin mervat urement (mass/volume)Ordered By: Julio Nolasco on 02-18-2025 Albumin [Mass/Vol] 3.0 g/dL Low 3.5-5.0 [facility] Serum or plasma albumin/glob ulin mass ratioOrdered By: Julio Nolasco on 02-18-2025 Albumin/Globulin [Mass ratio] 0.6 {ratio} Low 0.9-2.4 [facility] Serum or plasma alkaline cata sphatase measurementOrdered By: Julio Nolasco on 02-18-2025 ALP [Catalytic activity/Vol] 195 U/L High 40-129 [facility] Serum or plasma calcium mervat urement (mass/volume)Ordered By: Julio Nolasco on 02-18-2025 Calcium [Mass/Vol] 8.9 mg/dL 7.6-11.0 [facility] Serum or plasma cholesterol in HDL measurement (mass/volume)Ordered By: Julio Nolasco on 02-18-2025 Cholesterol in HDL [Mass/Vol] 16 mg/dL Low >40 [facility] Comment on above: National Cholesterol Education Program (NCEP) guidelines:<40 mg/dL: Low HDL-cholesterol (major risk factor for CHD)>= 60 mg/dL: High HDL-cholesterol (negative risk factor for CHD)HDL-cholesterol is affected by a number of factors, e.g. smoking, exercise, hormones, sex and age. Serum or plasma cholesterol measurement (mass/volume)Ordered By: Julio Nolasco on 02-18-2025 Cholesterol [Mass/Vol] 154 mg/dL <201 [facility] Comment on above: Cholesterol level, D esirable <200 mg/dLBorderline high cholesterol 200-239 mg/dLHigh cholesterol >=240 mg/dLRecommendations of the NCEP Adult Treatment Panel for the following risk-cutoff thresholds for the [place] population. Serum or plasma urea nitroge n measurement (mass/volume)Ordered By: Julio Nolasco on 02-18-2025 Urea nitrogen [Mass/Vol] 16 mg/dL 4-19 [facility] Sodium levelOrdered By: William Nolasco on 02-18-2025 Sodium [Moles/Vol] 136 mmol/L 133-145 [facility] TSH DL <= 0.005 mIU/L QnOrde red By: Julio Nolasco on 02-18-2025 TSH Qn 4.010 uIU/mL 0.300-4.200 [facility] Total proteinOrdered By: Adolfo Nolasco on 02-18-2025 Protein [Mass/Vol] 7.6 g/dL 5.9-8.4 [facility] Triglycerides measurementOrd ered By: Julio Nolasco on 06-03-2025 Triglyceride [Mass/Vol] 275 mg/dL High <199 [facility] Comment on above: The drugs N-Acetylcy steine and Metamizole may falsely depress this assay. Normal range: <150 mg/dLBorderline High: 150-199 mg/dLHigh: 200-499 mg/dLVery High: >500 mg/dL White blood cell (WBC) count Ordered By: Julio Nolasco on 02-18-2025 WBC (Bld) [#/Vol] 11.2 10*3/uL High 4.4-11.0 [facility] CBC panel Auto (Bld)on 02-17 Erythrocyte distribution width (RBC) [Ratio] 19.9 % High 11.5-14.5 [facility] Comment on above: Performed By: #### 5 8410-2 ####BHANU Treviño ([id number])[facility] ([facility])[address] [place] [address] 27409 Hematocrit (Bld) [Volume fraction] 23.6 % Low 41.0-52.0 [facility] Comment on above: Performed By: #### 5 8410-2 ####BHANU Treviño ([id number])[facility] ([facility])[address] [place] [address] Hemoglobin (Bld) [Mass/Vol] 7.4 g/dL Low 13.5-17.5 [facility] Comment on above: Performed By: #### 5 8410-2 ####BHANU Treviño (00155)[facility] ([facility])[address] [place] [address] MCH (RBC) [Entitic mass] 24.7 pg Low 26.0-34.0 [facility] Comment on above: Performed By: #### 5 8410-2 ####BHANU Treviño ([id number])[facility] ([facility])[address] [place] [address] MCHC (RBC) [Mass/Vol] 31.4 g/dL Low 32.0-36.0 [facility] Comment on above: Performed By: #### 5 8410-2 ####BHANU Treviño ([id number])[facility] ([facility])[address] [place] [address] 18491 MCV (RBC) [Entitic vol] 79 fL Low 80-100 [facility] Comment on above: Performed By: #### 5 8410-2 ####BHANU Treviño (84530)[facility] ([facility])[address] [place] [address] 29389 Nucleated RBC/100 WBC (Bld) [Ratio] 0.0 /100 WBCs Normal 0.0-0.0 [facility] Comment on above: Performed By: #### 5 8410-2 ####BHANU Treviño ([id number])[facility] ([facility])[address] [place] [address] 01982 Platelets (Bld) [#/Vol] 819 x10*3/uL High 150-450 [facility] Comment on above: Performed By: #### 5 8410-2 ####BHANU Treviño (32974)[facility] ([facility])[address] [place] [address] 80555 RBC (Bld) [#/Vol] 2.99 x10*6/uL Low 4.50-5.90 [facility] Comment on above: Performed By: #### 5 8410-2 ####BHANU Treviño ([id number])[facility])[address] [place] [address] WBC (Bld) [#/Vol] 12.6 x10*3/uL High 4.4-11.3 [facility] Comment on above: Performed By: #### 5 8410-2 ####BHANU Treviño ([id number])[facility])[address] [place] [address] 56641 Comprehensive metabolic 2000 panelon 02-17-2025 Albumin BCP dye [Mass/Vol] 2.8 g/dL Low 3.4-5.0 [facility] Comment on above: Performed By: #### 2 4323-8 ####BHANU Treviño ([id number])[facility])[address] [place] [address] ALP [Catalytic activity/Vol] 173 U/L High 33-120 [facility] Comment on above: Performed By: #### 2 4323-8 ####BHANU Treviño ([id number])[facility])[address] [place] [address] ALT With P-5'-P [Catalytic activity/Vol] 26 U/L Normal 10-52 [facility] Comment on above: Result Comment: Sydni ents treated with Sulfasalazine may generate falsely decreased results for ALT. Performed By: #### 2 4323-8 ####BHANU Treviño ([id number])[facility])[address] [place] [address] Anion gap [Moles/Vol] 15 mmol/L Normal 10-20 [facility] Comment on above: Performed By: #### 2 4323-8 ####BHANU Treviño ([id number])[facility])[address] [place] [address] AST With P-5'-P [Catalytic activity/Vol] 14 U/L Normal 9-39 [facility] Comment on above: Performed By: #### 2 4323-8 ####BHANU Treviño (39270)[facility])[address] [place] [address] Bilirubin [Mass/Vol] 0.3 mg/dL Normal 0.0-1.2 [facility] Comment on above: Performed By: #### 2 4323-8 ####BHANU Treviño ([id number])[facility])[address] [place] [address] Calcium [Mass/Vol] 8.4 mg/dL Low 8.6-10.6 [facility] Comment on above: Performed By: #### 2 4323-8 ####BHANU Treviño (53054)[facility])[address] [place] [address] Chloride [Moles/Vol] 101 mmol/L Normal 98-107 [facility] Comment on above: Performed By: #### 2 4323-8 ####BHANU LAUREANOTZER L (03448)[facility])[address] [place] [address] CO2 [Moles/Vol] 27 mmol/L Normal 21-32 [facility] Comment on above: Performed By: #### 2 4323-8 ####BHANU GREGORY L (18590)[facility])[address] [place] [address] Creatinine [Mass/Vol] 1.23 mg/dL Normal 0.50-1.30 [facility] Comment on above: Performed By: #### 2 4323-8 ####BHANU GREGORY L (31364)[facility])[address] [place] [address] Glomerular filtration rate/1.73 sq M.predicted 71 mL/min/1.73m*2 Normal >60 [facility] Comment on above: Result Comment: Calc ulations of estimated GFR are performed using the 2020 CKD-EPI Study Refit equation without the race variable for the IDMS-Traceable creatinine methods.https://jasn.asnjournals.org/content/ /ASN.9688585025 Performed By: #### 2 4323-8 ####BHANU GREGORY L ([id number])[facility])[address] [place] [address] Glucose [Mass/Vol] 88 mg/dL Normal 74-99 [facility] Comment on above: Performed By: #### 2 4323-8 ####BHNAU GREGORY L (68002)[facility])[address] [place] [address] Potassium [Moles/Vol] 5.1 mmol/L Normal 3.5-5.3 [facility] Comment on above: Performed By: #### 2 4323-8 ####BHANU Treviño (67894)[facility])[address] [place] [address] 40367 Protein [Mass/Vol] 6.7 g/dL Normal 6.4-8.2 [facility] Comment on above: Performed By: #### 2 4323-8 ####BHANU Treviño (28037)[facility])[address] [place] [address] 35661 Sodium [Moles/Vol] 138 mmol/L Normal 136-145 [facility] Comment on above: Performed By: #### 2 4323-8 ####BHANU Treviño (94247)[facility])[address] [place] [address] 16219 Urea nitrogen [Mass/Vol] 16 mg/dL Normal 6-23 [facility] Comment on above: Performed By: #### 2 4323-8 ####BHANU Treviño (92099)[facility])[address] [place] [address]500[address] Magnesiumon 02-17-2025 Magnesium [Mass/Vol] 2.01 mg/dL Normal 1.60-2.40 [facility] Comment on above: Performed By: #### 1 9123-9 ####BHANU Treviño (18027)[facility])[address] [place] [address] 87272 CBC panel Auto (Bld)on 02-16 Erythrocyte distribution width (RBC) [Ratio] 19.7 % High 11.5-14.5 [facility] Comment on above: Performed By: #### 5 8410-2 ####BHANU Treviño (64625)[facility])[address] [place] [address] 75441 Hematocrit (Bld) [Volume fraction] 22.1 % Low 41.0-52.0 [facility] Comment on above: Performed By: #### 5 8410-2 ####BHANU Treviño (55138)[facility])[address] [place] [address] Hemoglobin (Bld) [Mass/Vol] 7.1 g/dL Low 13.5-17.5 [facility] Comment on above: Performed By: #### 5 8410-2 ####BHANU Treviño (62671)[facility])[address]25 [place] [address] MCH (RBC) [Entitic mass] 24.8 pg Low 26.0-34.0 [facility] Comment on above: Performed By: #### 5 8410-2 ####BHANU Treviño (32630)[facility])[address] [place] [address] 57322 MCHC (RBC) [Mass/Vol] 32.1 g/dL Normal 32.0-36.0 [facility] Comment on above: Performed By: #### 5 8410-2 ####BHANU Treviño (68170)[facility])[address]19 [place] [address] MCV (RBC) [Entitic vol] 77 fL Low 80-100 [facility] Comment on above: Performed By: #### 5 8410-2 ####BHANU Treviño (62289)[facility])[address]369 [place] [address] Nucleated RBC/100 WBC (Bld) [Ratio] 0.0 /100 WBCs Normal 0.0-0.0 [facility] Comment on above: Performed By: #### 5 8410-2 ####BHANU Treviño (02721)[facility])[address] [place] [address] 31966 Platelets (Bld) [#/Vol] 758 x10*3/uL High 150-450 [facility] Comment on above: Performed By: #### 5 8410-2 ####BHANU Treviño ([id number])[facility])[address]194 [place] [address] RBC (Bld) [#/Vol] 2.86 x10*6/uL Low 4.50-5.90 [facility] Comment on above: Performed By: #### 5 8410-2 ####BHANU Treviño (22690)[facility])[address] [place] [address] WBC (Bld) [#/Vol] 14.1 x10*3/uL High 4.4-11.3 [facility] Comment on above: Performed By: #### 5 8410-2 ####BHANU Treviño (13995)[facility])[address]338 [place] [address] Comprehensive metabolic 2000 panelon 02-16-2025 Albumin BCP dye [Mass/Vol] 2.9 g/dL Low 3.4-5.0 [facility] Comment on above: Performed By: #### 2 4323-8 ####BHANU Treviño (43797)[facility])[address]64 [place] [address] ALP [Catalytic activity/Vol] 157 U/L High 33-120 [facility] Comment on above: Performed By: #### 2 4323-8 ####BHANU Treviño (21186)[facility])[address] [place] [address] ALT With P-5'-P [Catalytic activity/Vol] 30 U/L Normal 10-52 [facility] Comment on above: Result Comment: Sydni ents treated with Sulfasalazine may generate falsely decreased results for ALT. Performed By: #### 2 4323-8 ####BHANU Treviño (70861)[facility])[address]70 [place] [address] Anion gap [Moles/Vol] 13 mmol/L Normal 10-20 [facility] Comment on above: Performed By: #### 2 4323-8 ####BHANU Treviño (20741)[facility])[address]663 [place] [address] AST With P-5'-P [Catalytic activity/Vol] 16 U/L Normal 9-39 [facility] Comment on above: Performed By: #### 2 4323-8 ####BHANU Treviño (90822)[facility])[address] [place] [address] Bilirubin [Mass/Vol] 0.3 mg/dL Normal 0.0-1.2 [facility] Comment on above: Performed By: #### 2 4323-8 ####BHANU Treviño (35534)[facility])[address] [place] [address] Calcium [Mass/Vol] 8.8 mg/dL Normal 8.6-10.6 [facility] Comment on above: Performed By: #### 2 432-8 ####BHANU Treviño (15056)[facility])[address]36 [place] [address] Chloride [Moles/Vol] 100 mmol/L Normal 98-107 [facility] Comment on above: Performed By: #### 2 4323-8 ####BHANU Treviño (84633)[facility])[address] [place] [address] CO2 [Moles/Vol] 28 mmol/L Normal 21-32 [facility] Comment on above: Performed By: #### 2 4323-8 ####BHANU Treviño (16417)[facility])[address] [place] [address] Creatinine [Mass/Vol] 1.18 mg/dL Normal 0.50-1.30 [facility] Comment on above: Performed By: #### 2 4323-8 ####BHANU Treviño (49841)[facility])[address]606 [place] [address] Glomerular filtration rate/1.73 sq M.predicted 75 mL/min/1.73m*2 Normal >60 [facility] Comment on above: Result Comment: Calc ulations of estimated GFR are performed using the 2020 CKD-EPI Study Refit equation without the race variable for the IDMS-Traceable creatinine methods.https://jasn.asnjournals.org/content/ /ASN.7830229865 Performed By: #### 2 4323-8 ####BHANU Treviño (83895)[facility])[address]642 [place] [address] Glucose [Mass/Vol] 91 mg/dL Normal 74-99 [facility] Comment on above: Performed By: #### 2 4323-8 ####BHANU Treviño ([id number])[facility])[address]70 [place] [address] Potassium [Moles/Vol] 4.3 mmol/L Normal 3.5-5.3 [facility] Comment on above: Performed By: #### 2 4323-8 ####BHANU Treviño (73196)[facility])[address]15 [place] [address] Protein [Mass/Vol] 7.3 g/dL Normal 6.4-8.2 [facility] Comment on above: Performed By: #### 2 4323-8 ####BHANU GREGORY L (12643)[facility])[address]134 [place] [address] Sodium [Moles/Vol] 137 mmol/L Normal 136-145 [facility] Comment on above: Performed By: #### 2 4323-8 ####BHANU Treviño (26749)[facility])[address]625 [place] [address] Urea nitrogen [Mass/Vol] 17 mg/dL Normal 6-23 [facility] Comment on above: Performed By: #### 2 4323-8 ####BHANU Treviño (88822)[facility])[address] [place] [address] 76894 Magnesiumon 02-16-2025 Magnesium [Mass/Vol] 1.98 mg/dL Normal 1.60-2.40 [facility] Comment on above: Performed By: #### 1 9123-9 ####BHANU Treviño (98946)[facility] ([facility])[address] [place] [address] 20182 CBC panel Auto (Bld)on 02-15 Erythrocyte distribution width (RBC) [Ratio] 20.0 % High 11.5-14.5 [facility] Comment on above: Performed By: #### 5 8410-2 ####BHANU Treviño (34355)[facility] ([facility])[address] [place] [address] 31879 Hematocrit (Bld) [Volume fraction] 23.6 % Low 41.0-52.0 [facility] Comment on above: Performed By: #### 5 8410-2 ####BHANU Treviño (00719)[facility] ([facility])[address] [place] [address] 81276 Hemoglobin (Bld) [Mass/Vol] 7.5 g/dL Low 13.5-17.5 [facility] Comment on above: Performed By: #### 5 8410-2 ####BHANU Treviño (42152)[facility] ([facility])[address] [place] [address] 76999 MCH (RBC) [Entitic mass] 24.4 pg Low 26.0-34.0 [facility] Comment on above: Performed By: #### 5 8410-2 ####BHANU Treviño (00352)[facility] ([facility])[address] [place] [address] 27679 MCHC (RBC) [Mass/Vol] 31.8 g/dL Low 32.0-36.0 [facility] Comment on above: Performed By: #### 5 8410-2 ####BHANU Treviño (31431)[facility])[address]74 [place] [address] MCV (RBC) [Entitic vol] 77 fL Low 80-100 [facility] Comment on above: Performed By: #### 5 8410-2 ####BHANU Treviño (63306)[facility] ([facility])[address] [place] [address] 08698 Nucleated RBC/100 WBC (Bld) [Ratio] 0.0 /100 WBCs Normal 0.0-0.0 [facility] Comment on above: Performed By: #### 5 8410-2 ####BHANU Treviño (39360)[facility] ([facility])[address] [place] [address] 43148 Platelets (Bld) [#/Vol] 673 x10*3/uL High 150-450 [facility] Comment on above: Performed By: #### 5 8410-2 ####BHANU Treviño (89141)[facility])[address] [place] [address] 32281 RBC (Bld) [#/Vol] 3.07 x10*6/uL Low 4.50-5.90 [facility] Comment on above: Performed By: #### 5 8410-2 ####BHANU Treviño (54698)[facility])[address] [place] [address] 00846 WBC (Bld) [#/Vol] 20.2 x10*3/uL High 4.4-11.3 [facility] Comment on above: Performed By: #### 5 8410-2 ####BHANU Treviño (11055)[facility])[address] [place] [address] 38697 Comprehensive metabolic 2000 panelon 02-15-2025 Albumin BCP dye [Mass/Vol] 2.6 g/dL Low 3.4-5.0 [facility] Comment on above: Performed By: #### 2 4323-8 ####BHANU Treviño (70768)[facility])[address]015 [place] [address] ALP [Catalytic activity/Vol] 160 U/L High 33-120 [facility] Comment on above: Performed By: #### 2 4323-8 ####BHANU Treviño (19865)[facility])[address] [place] [address] ALT With P-5'-P [Catalytic activity/Vol] 36 U/L Normal 10-52 [facility] Comment on above: Result Comment: Sydni ents treated with Sulfasalazine may generate falsely decreased results for ALT. Performed By: #### 2 4323-8 ####BHANU Treviño (81144)[facility])[address]84 [place] [address] Anion gap [Moles/Vol] 15 mmol/L Normal 10-20 [facility] Comment on above: Performed By: #### 2 4323-8 ####BHANU Treviño (43206)[facility])[address]803 [place] [address] AST With P-5'-P [Catalytic activity/Vol] 23 U/L Normal 9-39 [facility] Comment on above: Performed By: #### 2 4323-8 ####BHANU Treviño (83546)[facility])[address]49 [place] [address] Bilirubin [Mass/Vol] 0.4 mg/dL Normal 0.0-1.2 [facility] Comment on above: Performed By: #### 2 4323-8 ####BHANU Treviño (91714)[facility])[address]17 [place] [address] Calcium [Mass/Vol] 8.3 mg/dL Low 8.6-10.6 [facility] Comment on above: Performed By: #### 2 4323-8 ####BHANU Treviño (33491)[facility])[address] [place] [address] Chloride [Moles/Vol] 100 mmol/L Normal 98-107 [facility] Comment on above: Performed By: #### 2 4323-8 ####BHANU GREGORY L (08674)[facility])[address] [place] [address] CO2 [Moles/Vol] 27 mmol/L Normal 21-32 [facility] Comment on above: Performed By: #### 2 4323-8 ####BHANU GREGORY L (37582)[facility])[address]77 [place] [address] Creatinine [Mass/Vol] 1.12 mg/dL Normal 0.50-1.30 [facility] Comment on above: Performed By: #### 2 4323-8 ####BHANU Treviño (73937)[facility])[address]35 [place] [address] Glomerular filtration rate/1.73 sq M.predicted 80 mL/min/1.73m*2 Normal >60 [facility] Comment on above: Result Comment: Calc ulations of estimated GFR are performed using the 2020 CKD-EPI Study Refit equation without the race variable for the IDMS-Traceable creatinine methods.https://jasn.asnjournals.org/content/ /ASN.9833915721 Performed By: #### 2 4323-8 ####BHANU GREGORY L (39589)[facility])[address]47 [place] [address] Glucose [Mass/Vol] 102 mg/dL High 74-99 [facility] Comment on above: Performed By: #### 2 4323-8 ####BHANU GREGORY L (39720)[facility])[address]99 [place] [address] Potassium [Moles/Vol] 5.1 mmol/L Normal 3.5-5.3 [facility] Comment on above: Performed By: #### 2 4323-8 ####BHANU Treviño (13273)[facility])[address]65 [place] [address] Protein [Mass/Vol] 6.5 g/dL Normal 6.4-8.2 [facility] Comment on above: Performed By: #### 2 4323-8 ####BHANU Treviño (32732)[facility])[address] [place] [address] 83395 Sodium [Moles/Vol] 137 mmol/L Normal 136-145 [facility] Comment on above: Performed By: #### 2 4323-8 ####BHANU Treviño (16316)[facility])[address] [place] [address] 70759 Urea nitrogen [Mass/Vol] 16 mg/dL Normal 6-23 [facility] Comment on above: Performed By: #### 2 4323-8 ####BHANU Treviño (29743)[facility] ([facility])[address] [place] [address] 70578 Magnesiumon 02-15-2025 Magnesium [Mass/Vol] 1.81 mg/dL Normal 1.60-2.40 [facility] Comment on above: Performed By: #### 1 9123-9 ####BHANU Treviño (26296)[facility])[address] [place] [address] 94406 Basic metabolic 2000 panelon 02-13-2025 Anion gap [Moles/Vol] 16 mmol/L Normal 10-20 [facility] Comment on above: Performed By: #### 2 4321-2 ####BHANU Treviño (11768)[facility])[address] [place] [address] 79447 Calcium [Mass/Vol] 8.4 mg/dL Low 8.6-10.6 [facility] Comment on above: Performed By: #### 2 4321-2 ####BHANU GREGORY L (72337)[facility])[address]290 [place] [address] Chloride [Moles/Vol] 103 mmol/L Normal 98-107 [facility] Comment on above: Performed By: #### 2 4321-2 ####BHANU FLEMINGMOTZER L (48007)[facility])[address]61 [place] [address] CO2 [Moles/Vol] 28 mmol/L Normal 21-32 [facility] Comment on above: Performed By: #### 2 4321-2 ####BHANU MATOSER L (57318)[facility])[address]15 [place] [address] Creatinine [Mass/Vol] 1.22 mg/dL Normal 0.50-1.30 [facility] Comment on above: Performed By: #### 2 1-2 ####BHANU LAUREANOTZALANNA L (92039)[facility])[address]21 [place] [address] Glomerular filtration rate/1.73 sq M.predicted 72 mL/min/1.73m*2 Normal >60 [facility] Comment on above: Result Comment: Calc ulations of estimated GFR are performed using the 2020 CKD-EPI Study Refit equation without the race variable for the IDMS-Traceable creatinine methods.https://jasn.asnjournals.org/content/ /ASN.0090988175 Performed By: #### 2 1-2 ####BHANU GREGORY L (36849)[facility] ([facility])[address]1979 [place] [address] Glucose [Mass/Vol] 115 mg/dL High 74-99 [facility] Comment on above: Performed By: #### 2 4321-2 ####BHANU FLEMINGMOTZALANNA L (27847)[facility] ([facility])[address]36 [place] [address] Potassium [Moles/Vol] 4.9 mmol/L Normal 3.5-5.3 [facility] Comment on above: Performed By: #### 2 4321-2 ####BHANU Treviño ([id number])[facility] ([facility])[address] [place] [address] Sodium [Moles/Vol] 142 mmol/L Normal 136-145 [facility] Comment on above: Performed By: #### 2 4321-2 ####BHANU Treviño ([id number])[facility] ([facility])[address] [place] [address] Urea nitrogen [Mass/Vol] 16 mg/dL Normal 6-23 [facility] Comment on above: Performed By: #### 2 4321-2 ####BHANU Treviño ([id number])[facility] ([facility])[id number] [place] [id number] Blood type and Indirect anti body screen panel (Bld)on 02-13-2025 ABO group Nom (Bld) A Normal [facility] Comment on above: Performed By: #### 3 4532-2 ####BHANU Treviño ([id number])[facility] ([facility] [facility])[address] [place] [address] Blood group antibody screen Ql Negative [facility] Comment on above: Performed By: #### 3 4532-2 ####BHANU Treviño ([id number])[facility] ([facility])[address] [place] [address] D Ag Ql (Bld) Positive [facility] Comment on above: Performed By: #### 3 4532-2 ####BHANU Treviño (95304)[facility] ([facility])[address] [place] [address] CBC panel Auto (Bld)on 02-13 Erythrocyte distribution width (RBC) [Ratio] 20.1 % High 11.5-14.5 [facility] Comment on above: Performed By: #### 5 8410-2 ####BHANU Treviño (57391)[facility] ([facility])[address] [place] [address] Hematocrit (Bld) [Volume fraction] 23.1 % Low 41.0-52.0 [facility] Comment on above: Performed By: #### 5 8410-2 ####BHANU Treviño (65478)[facility] ([facility])[address] [place] [address] Hemoglobin (Bld) [Mass/Vol] 7.4 g/dL Low 13.5-17.5 [facility] Comment on above: Performed By: #### 5 8410-2 ####BHANU Treviño (25017)[facility] ([facility])[address] [place] [address] MCH (RBC) [Entitic mass] 24.5 pg Low 26.0-34.0 [facility] Comment on above: Performed By: #### 5 8410-2 ####BHANU Treviño (93317)[facility] ([facility])[address] [place] [address] MCHC (RBC) [Mass/Vol] 32.0 g/dL Normal 32.0-36.0 [facility] Comment on above: Performed By: #### 5 8410-2 ####BHANU Treviño (52170)[facility] ([facility])[address] [place] [address] 18202 MCV (RBC) [Entitic vol] 77 fL Low 80-100 [facility] Comment on above: Performed By: #### 5 8410-2 ####BHANU Treviño (45828)[facility] ([facility])[address] [place] [address]245 Nucleated RBC/100 WBC (Bld) [Ratio] 0.0 /100 WBCs Normal 0.0-0.0 [facility] Comment on above: Performed By: #### 5 8410-2 ####BHANU Treviño (17275)[facility] ([facility])[address] [place] [address] Platelets (Bld) [#/Vol] 664 x10*3/uL High 150-450 [facility] Comment on above: Performed By: #### 5 8410-2 ####BHANU Treviño (61646)[facility] ([facility])[address] [place] [address] RBC (Bld) [#/Vol] 3.02 x10*6/uL Low 4.50-5.90 [facility] Comment on above: Performed By: #### 5 8410-2 ####BHANU Treviño (71469)[facility] ([facility])[address] [place] [address] WBC (Bld) [#/Vol] 9.9 x10*3/uL Normal 4.4-11.3 [facility] Comment on above: Performed By: #### 5 8410-2 ####BHANU Treviño (15216)[facility] ([facility])[address] [place] [address] Magnesiumon 02-13-2025 Magnesium [Mass/Vol] 1.92 mg/dL Normal 1.60-2.40 [facility] Comment on above: Performed By: #### 1 9123-9 ####BHANU Treviño (04756)[facility] ([facility])[address] [place] [address] PT and aPTT panel Coag (PPP) on 02-13-2025 aPTT Coag (PPP) [Time] 31 s Normal 26-36 [facility] Comment on above: Order Comment: The A PTT is no longer used for monitoring Unfractionated Heparin Therapy. For monitoring Heparin Therapy, use the Heparin Assay. Performed By: #### 3 4529-8 ####BHANU Treviño (19804)[facility] ([facility])[address] [place] [address] INR Coag (PPP) [Relative time] 1.2 High 0.9-1.1 [facility] Comment on above: Order Comment: The A PTT is no longer used for monitoring Unfractionated Heparin Therapy. For monitoring Heparin Therapy, use the Heparin Assay. Performed By: #### 3 4529-8 ####BHANU Treviño (66997)[facility] ([facility])[address] [place] [address] PT Coag (PPP) [Time] 12.9 s High 9.8-12.4 [facility] Comment on above: Order Comment: The A PTT is no longer used for monitoring Unfractionated Heparin Therapy. For monitoring Heparin Therapy, use the Heparin Assay. Performed By: #### 3 4529-8 ####BHANU Treviño (77254)[facility] ([facility])[address] [place] [address] CBC panel Auto (Bld)on 02-12 Erythrocyte distribution width (RBC) [Ratio] 19.8 % High 11.5-14.5 [facility] Comment on above: Performed By: #### 5 8410-2 ####BHANU Treviño (46762)[facility] ([facility])[address] [place] [address]392 Hematocrit (Bld) [Volume fraction] 22.9 % Low 41.0-52.0 [facility] Comment on above: Performed By: #### 5 8410-2 ####BHANU Treviño (04513)[facility] ([facility])[address] [place] [address]01 Hemoglobin (Bld) [Mass/Vol] 7.4 g/dL Low 13.5-17.5 [facility] Comment on above: Performed By: #### 5 8410-2 ####BHANU Treviño (46532)[facility] ([facility])[address] [place] [address] 52466 MCH (RBC) [Entitic mass] 24.6 pg Low 26.0-34.0 [facility] Comment on above: Performed By: #### 5 8410-2 ####BHANU Treviño (80568)[facility] ([facility])[address] [place] [address] MCHC (RBC) [Mass/Vol] 32.3 g/dL Normal 32.0-36.0 [facility] Comment on above: Performed By: #### 5 8410-2 ####BHANU Treviño (24845)[facility] ([facility])[address] [place] [address] MCV (RBC) [Entitic vol] 76 fL Low 80-100 [facility] Comment on above: Performed By: #### 5 8410-2 ####BHANU Treviño (20979)[facility] ([facility])[address] [place] [address] 42414 Nucleated RBC/100 WBC (Bld) [Ratio] 0.0 /100 WBCs Normal 0.0-0.0 [facility] Comment on above: Performed By: #### 5 8410-2 ####BHANU Treviño (85580)[facility] ([facility])[address] [place] [address]82 Platelets (Bld) [#/Vol] 664 x10*3/uL High 150-450 [facility] Comment on above: Performed By: #### 5 8410-2 ####BHANU Treviño (15689)[facility] ([facility])[address] [place] [address] 33137 RBC (Bld) [#/Vol] 3.01 x10*6/uL Low 4.50-5.90 [facility] Comment on above: Performed By: #### 5 8410-2 ####BHANU Treviño (20739)[facility] ([facility])[address] [place] [address] WBC (Bld) [#/Vol] 9.2 x10*3/uL Normal 4.4-11.3 [facility] Comment on above: Performed By: #### 5 8410-2 ####BHANU Treviño (52960)[facility] ([facility])[address] [place] [address] 70715 Comprehensive metabolic 2000 panelon 02-12-2025 Albumin BCP dye [Mass/Vol] 2.6 g/dL Low 3.4-5.0 [facility] Comment on above: Performed By: #### 2 4323-8 ####BHANU Treviño (63613)[facility] ([facility])[address] [place] [address] ALP [Catalytic activity/Vol] 107 U/L Normal 33-120 [facility] Comment on above: Performed By: #### 2 4323-8 ####BHANU Treviño (41788)[facility] ([facility])[address] [place] [address] ALT With P-5'-P [Catalytic activity/Vol] 15 U/L Normal 10-52 [facility] Comment on above: Result Comment: Sydni ents treated with Sulfasalazine may generate falsely decreased results for ALT. Performed By: #### 2 4323-8 ####BHANU Treviño (69355)[facility] ([facility])[address] [place] [address] Anion gap [Moles/Vol] 14 mmol/L Normal 10-20 [facility] Comment on above: Performed By: #### 2 4323-8 ####BHANU Treviño (71214)[facility] ([facility])[address] [place] [address] AST With P-5'-P [Catalytic activity/Vol] 14 U/L Normal 9-39 [facility] Comment on above: Performed By: #### 2 4323-8 ####BHANU Treviño (46751)[facility] ([facility])[address] [place] [address] Bilirubin [Mass/Vol] 0.3 mg/dL Normal 0.0-1.2 [facility] Comment on above: Performed By: #### 2 4323-8 ####BHANU Treviño (84020)[facility] ([facility])[address]194 [place] [address] Calcium [Mass/Vol] 8.4 mg/dL Low 8.6-10.6 [facility] Comment on above: Performed By: #### 2 4323-8 ####BHANU Treviño (53329)[facility] ([facility])[address] [place] [address] Chloride [Moles/Vol] 101 mmol/L Normal 98-107 [facility] Comment on above: Performed By: #### 2 4323-8 ####BHANU GREGORY L (99212)[facility] ([facility])[address] [place] [address] CO2 [Moles/Vol] 28 mmol/L Normal 21-32 [facility] Comment on above: Performed By: #### 2 4323-8 ####BHANU Treviño (10876)[facility] ([facility])[address]687 [place] [address] Creatinine [Mass/Vol] 1.08 mg/dL Normal 0.50-1.30 [facility] Comment on above: Performed By: #### 2 4323-8 ####BHANU Treviño (47360)[facility] ([facility])[address]256 [place] [address] Glomerular filtration rate/1.73 sq M.predicted 83 mL/min/1.73m*2 Normal >60 [facility] Comment on above: Result Comment: Calc ulations of estimated GFR are performed using the 2020 CKD-EPI Study Refit equation without the race variable for the IDMS-Traceable creatinine methods.https://jasn.asnjournals.org/content/ /ASN.2298367964 Performed By: #### 2 4323-8 ####BHANU Treviño (94504)[facility] ([facility])[address]65 [place] [address] Glucose [Mass/Vol] 114 mg/dL High 74-99 [facility] Comment on above: Performed By: #### 2 4323-8 ####BHANU Treviño (23579)[facility] ([facility])[address]646 [place] [address] Potassium [Moles/Vol] 5.2 mmol/L Normal 3.5-5.3 [facility] Comment on above: Performed By: #### 2 4323-8 ####BHANU Treviño (38120)[facility] ([facility])[address]232 [place] [address] Protein [Mass/Vol] 7.1 g/dL Normal 6.4-8.2 [facility] Comment on above: Performed By: #### 2 4323-8 ####BHANU Treviño (71683)[facility] ([facility])[address]403 [place] [address] Sodium [Moles/Vol] 138 mmol/L Normal 136-145 [facility] Comment on above: Performed By: #### 2 4323-8 ####BHANU Treviño (66691)[facility] ([facility])[address]25 [place] [address] Urea nitrogen [Mass/Vol] 14 mg/dL Normal 6-23 [facility] Comment on above: Performed By: #### 2 4323-8 ####BHANU Treviño (25513)[facility] ([facility])[address]751 [place] [address] Magnesiumon 02-12-2025 Magnesium [Mass/Vol] 2.03 mg/dL Normal 1.60-2.40 [facility] Comment on above: Performed By: #### 1 9123-9 ####BHANU Treviño (86941)[facility] ([facility])[address]87 [place] [address] Basic metabolic 2000 panelon 02-11-2025 Anion gap [Moles/Vol] 14 mmol/L Normal 10-20 [facility] Comment on above: Performed By: #### 2 4321-2 ####BHANU Treviño (39073)[facility] ([facility])[address]362 [place] [address] Calcium [Mass/Vol] 9.1 mg/dL Normal 8.6-10.6 [facility] Comment on above: Performed By: #### 2 4321-2 ####BHANU Treviño (58616)[facility] ([facility])[address] [place] [address] Chloride [Moles/Vol] 100 mmol/L Normal 98-107 [facility] Comment on above: Performed By: #### 2 4321-2 ####BHANU Treviño (70469)[facility] ([facility])[address] [place] [address] CO2 [Moles/Vol] 29 mmol/L Normal 21-32 [facility] Comment on above: Performed By: #### 2 4321-2 ####BHANU Treviño (44120)[facility] ([facility])[address]2018 [place] [address] Creatinine [Mass/Vol] 1.13 mg/dL Normal 0.50-1.30 [facility] Comment on above: Performed By: #### 2 4321-2 ####BHANU GREGORY L (72883)[facility] ([facility])[address]704 [place] [address] Glomerular filtration rate/1.73 sq M.predicted 79 mL/min/1.73m*2 Normal >60 [facility] Comment on above: Result Comment: Calc ulations of estimated GFR are performed using the 2020 CKD-EPI Study Refit equation without the race variable for the IDMS-Traceable creatinine methods.https://jasn.asnjournals.org/content/ /ASN.3713131024 Performed By: #### 2 4321-2 ####BHANU Treviño (89176)[facility] ([facility])[address]34 [place] [address] Glucose [Mass/Vol] 108 mg/dL High 74-99 [facility] Comment on above: Performed By: #### 2 4321-2 ####BHANU Treviño (90086)[facility] ([facility])[address]993 [place] [address] Potassium [Moles/Vol] 4.6 mmol/L Normal 3.5-5.3 [facility] Comment on above: Performed By: #### 2 4321-2 ####BHANU Treviño (40908)[facility] ([facility])[address] [place] [address] Sodium [Moles/Vol] 138 mmol/L Normal 136-145 [facility] Comment on above: Performed By: #### 2 4321-2 ####BHANU Treviño (85760)[facility] ([facility])[address] [place] [address] 26332 Urea nitrogen [Mass/Vol] 16 mg/dL Normal 6-23 [facility] Comment on above: Performed By: #### 2 4321-2 ####BHANU Treviño (79177)[facility] ([facility])[address] [place] [address] 25144 CBC panel Auto (Bld)on 02-11 Erythrocyte distribution width (RBC) [Ratio] 20.0 % High 11.5-14.5 [facility] Comment on above: Performed By: #### 5 8410-2 ####BHANU Treviño (93058)[facility] ([facility])[address] [place] [address] 25179 Hematocrit (Bld) [Volume fraction] 24.7 % Low 41.0-52.0 [facility] Comment on above: Performed By: #### 5 8410-2 ####BHANU Treviño (45140)[facility] ([facility])[address] [place] [address] 96616 Hemoglobin (Bld) [Mass/Vol] 8.1 g/dL Low 13.5-17.5 [facility] Comment on above: Performed By: #### 5 8410-2 ####BHANU Treviño (50153)[facility] ([facility])[address]44 [place] [address] MCH (RBC) [Entitic mass] 25.1 pg Low 26.0-34.0 [facility] Comment on above: Performed By: #### 5 8410-2 ####BHANU Treviño (21579)[facility] ([facility])[address]280 [place] [address] MCHC (RBC) [Mass/Vol] 32.8 g/dL Normal 32.0-36.0 [facility] Comment on above: Performed By: #### 5 8410-2 ####BHANU Treviño (88613)[facility] ([facility])[address]29 [place] [address] MCV (RBC) [Entitic vol] 77 fL Low 80-100 [facility] Comment on above: Performed By: #### 5 8410-2 ####BHANU Treviño (32287)[facility] ([facility])[address]1964 [place] [address] Nucleated RBC/100 WBC (Bld) [Ratio] 0.0 /100 WBCs Normal 0.0-0.0 [facility] Comment on above: Performed By: #### 5 8410-2 ####BHANU Treviño (94247)[facility] ([facility])[address]78 [place] [address] Platelets (Bld) [#/Vol] 667 x10*3/uL High 150-450 [facility] Comment on above: Performed By: #### 5 8410-2 ####BHANU Treviño (67276)[facility] ([facility])[address]44 [place] [address] RBC (Bld) [#/Vol] 3.23 x10*6/uL Low 4.50-5.90 [facility] Comment on above: Performed By: #### 5 8410-2 ####BHANU Treviño (01125)[facility] ([facility])[address]02 [place] [address] WBC (Bld) [#/Vol] 11.6 x10*3/uL High 4.4-11.3 [facility] Comment on above: Performed By: #### 5 8410-2 ####BHANU Treviño (39679)[facility] ([facility])[address]66 [place] [address] Magnesiumon 02-11-2025 Magnesium [Mass/Vol] 1.70 mg/dL Normal 1.60-2.40 [facility] Comment on above: Performed By: #### 1 9123-9 ####BHANU Treviño (53664)[facility] ([facility])[address] [place] [address] PT and aPTT panel Coag (PPP) on 02-11-2025 aPTT Coag (PPP) [Time] 35 s Normal 26-36 [facility] Comment on above: Order Comment: The A PTT is no longer used for monitoring Unfractionated Heparin Therapy. For monitoring Heparin Therapy, use the Heparin Assay. Performed By: #### 3 4529-8 ####BHANU Treviño (34867)[facility] ([facility])[address] [place] [address] 70561 INR Coag (PPP) [Relative time] 1.3 High 0.9-1.1 [facility] Comment on above: Order Comment: The A PTT is no longer used for monitoring Unfractionated Heparin Therapy. For monitoring Heparin Therapy, use the Heparin Assay. Performed By: #### 3 4529-8 ####BHANU Treviño (49040)[facility] ([facility])[address]18 [place] [address] PT Coag (PPP) [Time] 14.2 s High 9.8-12.4 [facility] Comment on above: Order Comment: The A PTT is no longer used for monitoring Unfractionated Heparin Therapy. For monitoring Heparin Therapy, use the Heparin Assay. Performed By: #### 3 4529-8 ####BHANU Treviño (66226)[facility] ([facility])[address] [place] [address] 37780 Blood type and Indirect anti body screen panel (Bld)on 02-10-2025 ABO group Nom (Bld) A Normal [facility] Comment on above: Performed By: #### 3 4532-2 ####BHANU Treviño (40451)[facility] ([facility])[address] [place] [address]751 Blood group antibody screen Ql Negative [facility] Comment on above: Performed By: #### 3 4532-2 ####BHANU Treviño (09053)[facility] ([facility])[address] [place] [address] 66221 D Ag Ql (Bld) Positive [facility] Comment on above: Performed By: #### 3 4532-2 ####BHANU Treviño (72029)[facility] ([facility])[address] [place] [address] 804[address] CBC panel Auto (Bld)on 02-10 Erythrocyte distribution width (RBC) [Ratio] 20.0 % High 11.5-14.5 [facility] Comment on above: Performed By: #### 5 8410-2 ####BHANU Treviño (21162)[facility] ([facility])[address] [place] [address] 93887 Hematocrit (Bld) [Volume fraction] 24.6 % Low 41.0-52.0 [facility] Comment on above: Performed By: #### 5 8410-2 ####BHANU Treviño (15104)[facility] ([facility])[address] [place] [address] 03488 Hemoglobin (Bld) [Mass/Vol] 8.0 g/dL Low 13.5-17.5 [facility] Comment on above: Performed By: #### 5 8410-2 ####BHANU Treviño (54703)[facility] ([facility])[address] [place] [address] 04744 MCH (RBC) [Entitic mass] 25.0 pg Low 26.0-34.0 [facility] Comment on above: Performed By: #### 5 8410-2 ####BHANU Treviño (58330)[facility] ([facility])[address]16 [place] [address] MCHC (RBC) [Mass/Vol] 32.5 g/dL Normal 32.0-36.0 [facility] Comment on above: Performed By: #### 5 8410-2 ####BHANU Treviño (90539)[facility] ([facility])86347 [place] [address] MCV (RBC) [Entitic vol] 77 fL Low 80-100 [facility] Comment on above: Performed By: #### 5 8410-2 ####BHANU Treviño (87529)[facility] ([facility])[address] [place] [address] 86853 Nucleated RBC/100 WBC (Bld) [Ratio] 0.0 /100 WBCs Normal 0.0-0.0 [facility] Comment on above: Performed By: #### 5 8410-2 ####BHANU Treviño (89075)[facility] ([facility])[address] [place] [address] 13857 Platelets (Bld) [#/Vol] 593 x10*3/uL High 150-450 [facility] Comment on above: Performed By: #### 5 8410-2 ####BHANU Treviño (25667)[facility] ([facility])[address]294 [place] [address] RBC (Bld) [#/Vol] 3.20 x10*6/uL Low 4.50-5.90 [facility] Comment on above: Performed By: #### 5 8410-2 ####BHANU Treviño (77828)[facility] ([facility])10693 [place] [address] WBC (Bld) [#/Vol] 10.6 x10*3/uL Normal 4.4-11.3 [facility] Comment on above: Performed By: #### 5 8410-2 ####BHANU Treviño (86707)[facility] ([facility])[address]390 [place] [address] Basic metabolic 2000 panelon 02-08-2025 Anion gap [Moles/Vol] 13 mmol/L Normal 10-20 [facility] Comment on above: Performed By: #### 2 4321-2 ####BHANU Treviño (87000)[facility] ([facility])[address]386 [place] [address] Calcium [Mass/Vol] 8.3 mg/dL Low 8.6-10.6 [facility] Comment on above: Performed By: #### 2 4321-2 ####BHANU Treviño (09215)[facility] ([facility])[address]146 [place] [address] Chloride [Moles/Vol] 105 mmol/L Normal 98-107 [facility] Comment on above: Performed By: #### 2 4321-2 ####BHANU Treviño (70749)[facility] ([facility])38758 [place] [address] CO2 [Moles/Vol] 27 mmol/L Normal 21-32 [facility] Comment on above: Performed By: #### 2 4321-2 ####BHANU Treviño (28815)[facility])[address]25 [place] [address] Creatinine [Mass/Vol] 1.11 mg/dL Normal 0.50-1.30 [facility] Comment on above: Performed By: #### 2 4321-2 ####BHANU Treviño (77254)[facility])[address]41 [place] [address] Glomerular filtration rate/1.73 sq M.predicted 80 mL/min/1.73m*2 Normal >60 [facility] Comment on above: Result Comment: Calc ulations of estimated GFR are performed using the 2020 CKD-EPI Study Refit equation without the race variable for the IDMS-Traceable creatinine methods.https://jasn.asnjournals.org/content/ /ASN.9489930829 Performed By: #### 2 4321-2 ####BHANU Treviño (41220)[facility] ([facility])[address]805 [place] [address] Glucose [Mass/Vol] 124 mg/dL High 74-99 [facility] Comment on above: Performed By: #### 2 4321-2 ####BHANU Treviño (12706)[facility] ([facility])[address]134 [place] [address] Potassium [Moles/Vol] 4.8 mmol/L Normal 3.5-5.3 [facility] Comment on above: Performed By: #### 2 4321-2 ####BHANU GREGORY L (84821)[facility] ([facility])[address]143 [place] [address] Sodium [Moles/Vol] 140 mmol/L Normal 136-145 [facility] Comment on above: Performed By: #### 2 4321-2 ####BHANU GREGORY L (28253)[facility] ([facility])[address]26 [place] [address] Urea nitrogen [Mass/Vol] 16 mg/dL Normal 6-23 [facility] Comment on above: Performed By: #### 2 4321-2 ####BHANU GREGORY L (08463)[facility] ([facility])[address] [place] [address] CBC panel Auto (Bld)on 02-08 Erythrocyte distribution width (RBC) [Ratio] 20.5 % High 11.5-14.5 [facility] Comment on above: Performed By: #### 5 8410-2 ####BHANU GREGORY L ([id number])[facility] ([facility])[address] [place] [address] Hematocrit (Bld) [Volume fraction] 25.2 % Low 41.0-52.0 [facility] Comment on above: Performed By: #### 5 8410-2 ####BHANU Treviño ([id number])[facility] ([facility])[address] [place] [address] Hemoglobin (Bld) [Mass/Vol] 8.0 g/dL Low 13.5-17.5 [facility] Comment on above: Performed By: #### 5 8410-2 ####BHANU Treviño ([id number])[facility] ([facility])[id number] [place] [id number] MCH (RBC) [Entitic mass] 25.1 pg Low 26.0-34.0 [facility] Comment on above: Performed By: #### 5 8410-2 ####BHANU Treviño ([id number])[facility] ([facility])[address] [place] [address] 64213 MCHC (RBC) [Mass/Vol] 31.7 g/dL Low 32.0-36.0 [facility] Comment on above: Performed By: #### 5 8410-2 ####BHANU Treviño ([id number])[facility] ([facility])[address] [place] [address] 25952 MCV (RBC) [Entitic vol] 79 fL Low 80-100 [facility] Comment on above: Performed By: #### 5 8410-2 ####BHANU Treviño (46714)[facility] ([facility])[address] [place] [address] 81472 Nucleated RBC/100 WBC (Bld) [Ratio] 0.0 /100 WBCs Normal 0.0-0.0 [facility] Comment on above: Performed By: #### 5 8410-2 ####BHANU Treviño (26930)[facility] ([facility])[address] [place] [address] Platelets (Bld) [#/Vol] 463 x10*3/uL High 150-450 [facility] Comment on above: Performed By: #### 5 8410-2 ####BHANU Treviño (87404)[facility] ([facility])[address] [place] [address] RBC (Bld) [#/Vol] 3.19 x10*6/uL Low 4.50-5.90 [facility] Comment on above: Performed By: #### 5 8410-2 ####BHANU Treviño (72943)[facility] ([facility])[address] [place] [address] WBC (Bld) [#/Vol] 10.0 x10*3/uL Normal 4.4-11.3 [facility] Comment on above: Performed By: #### 5 8410-2 ####BHANU Treviño ([id number])[facility] ([facility])[address] [place] [address] Basic metabolic 2000 panelon 02-07-2025 Anion gap [Moles/Vol] 15 mmol/L Normal 10-20 [facility] Comment on above: Performed By: #### 2 4321-2 ####BHANU Treviño (47596)[facility] ([facility])[address] [place] [address] Calcium [Mass/Vol] 8.4 mg/dL Low 8.6-10.6 [facility] Comment on above: Performed By: #### 2 4321-2 ####BHANU Treviño (53228)[facility] ([facility])[address]67 [place] [address] Chloride [Moles/Vol] 106 mmol/L Normal 98-107 [facility] Comment on above: Performed By: #### 2 4321-2 ####BHANU Treviño (66815)[facility] ([facility])[address] [place] [address] CO2 [Moles/Vol] 24 mmol/L Normal 21-32 [facility] Comment on above: Performed By: #### 2 4321-2 ####BHANU GREGORY L (43773)[facility] ([facility])[address] [place] [address] Creatinine [Mass/Vol] 1.09 mg/dL Normal 0.50-1.30 [facility] Comment on above: Performed By: #### 2 4321-2 ####BHANU GREGORY L (29711)[facility] ([facility])[address] [place] [address] Glomerular filtration rate/1.73 sq M.predicted 82 mL/min/1.73m*2 Normal >60 [facility] Comment on above: Result Comment: Calc ulations of estimated GFR are performed using the 2020 CKD-EPI Study Refit equation without the race variable for the IDMS-Traceable creatinine methods.https://jasn.asnjournals.org/content/ /ASN.1827416178 Performed By: #### 2 4321-2 ####BHANU GREGORY L (70551)[facility] ([facility])[address]689 [place] [address] Glucose [Mass/Vol] 110 mg/dL High 74-99 [facility] Comment on above: Performed By: #### 2 4321-2 ####BHANU GREGORY L (42901)[facility] ([facility])[address] [place] [address] Potassium [Moles/Vol] 4.7 mmol/L Normal 3.5-5.3 [facility] Comment on above: Performed By: #### 2 4321-2 ####BHANU GREGORY L (41585)[facility] ([facility])[address]62 [place] [address] Sodium [Moles/Vol] 140 mmol/L Normal 136-145 [facility] Comment on above: Performed By: #### 2 4321-2 ####BHANU GREGORY L (80311)[facility] ([facility])[address]14 [place] [address] Urea nitrogen [Mass/Vol] 18 mg/dL Normal - [facility] Comment on above: Performed By: #### 2 4321-2 ####BHANU Treviño (26701)[facility] ([facility])[address] [place] [address] 95616 CBC panel Auto (Bld)on 02-07 Erythrocyte distribution width (RBC) [Ratio] 20.4 % High 11.5-14.5 [facility] Comment on above: Performed By: #### 5 8410-2 ####BHANU Treviño (00410)[facility] ([facility])[address] [place] [address] 87875 Hematocrit (Bld) [Volume fraction] 27.2 % Low 41.0-52.0 [facility] Comment on above: Performed By: #### 5 8410-2 ####BHANU Treviño (72471)[facility] ([facility])[address] [place] [address] 66231 Hemoglobin (Bld) [Mass/Vol] 9.0 g/dL Low 13.5-17.5 [facility] Comment on above: Performed By: #### 5 8410-2 ####BHANU Treviño (12661)[facility] ([facility])[address] [place] [address] 68150 MCH (RBC) [Entitic mass] 25.6 pg Low 26.0-34.0 [facility] Comment on above: Performed By: #### 5 8410-2 ####BHANU Treviño (52852)[facility] ([facility])[address] [place] [address] 66424 MCHC (RBC) [Mass/Vol] 33.1 g/dL Normal 32.0-36.0 [facility] Comment on above: Performed By: #### 5 8410-2 ####BHANU Treviño (40633)[facility] ([facility])[address] [place] [address] MCV (RBC) [Entitic vol] 77 fL Low 80-100 [facility] Comment on above: Performed By: #### 5 8410-2 ####BHANU Treviño (54682)[facility] ([facility])[address] [place] [address] 63702 Nucleated RBC/100 WBC (Bld) [Ratio] 0.0 /100 WBCs Normal 0.0-0.0 [facility] Comment on above: Performed By: #### 5 8410-2 ####BHANU Treviño (82373)[facility] ([facility])[address] [place] [address] 13066 Platelets (Bld) [#/Vol] 483 x10*3/uL High 150-450 [facility] Comment on above: Performed By: #### 5 8410-2 ####BHANU Treviño (53153)[facility] ([facility])[address] [place] [address] 57065 RBC (Bld) [#/Vol] 3.52 x10*6/uL Low 4.50-5.90 [facility] Comment on above: Performed By: #### 5 8410-2 ####BHANU Treviño (42529)[facility] ([facility])[address] [place] [address] 54463 WBC (Bld) [#/Vol] 9.2 x10*3/uL Normal 4.4-11.3 [facility] Comment on above: Performed By: #### 5 8410-2 ####BHANU Treviño (40619)[facility] ([facility])[address] [place] [address] 48315 Magnesiumon 02-07-2025 Magnesium [Mass/Vol] 2.05 mg/dL Normal 1.60-2.40 [facility] Comment on above: Performed By: #### 1 9123-9 ####BHANU Treviño (74042)[facility] ([facility])[address] [place] [address] 95939 Basic metabolic 2000 panelon 02-06-2025 Anion gap [Moles/Vol] 12 mmol/L Normal 10-20 [facility] Comment on above: Performed By: #### 2 4321-2 ####BHANU GREGORY L (17519)[facility] ([facility])[address]76 [place] [address] Calcium [Mass/Vol] 8.1 mg/dL Low 8.6-10.6 [facility] Comment on above: Performed By: #### 2 4321-2 ####BHANU GREGORY L (87851)[facility] ([facility])[address]249 [place] [address] Chloride [Moles/Vol] 106 mmol/L Normal 98-107 [facility] Comment on above: Performed By: #### 2 4321-2 ####BHANU FLEMINGMOTZER L (97567)[facility] ([facility])[address]459 [place] [address] CO2 [Moles/Vol] 28 mmol/L Normal 21-32 [facility] Comment on above: Performed By: #### 2 4321-2 ####BHANU GREGORY L (75547)[facility] ([facility])[address]229 [place] [address] Creatinine [Mass/Vol] 1.22 mg/dL Normal 0.50-1.30 [facility] Comment on above: Performed By: #### 2 4321-2 ####BHANU GREGORY L (03981)[facility] ([facility])[address]807 [place] [address] Glomerular filtration rate/1.73 sq M.predicted 72 mL/min/1.73m*2 Normal >60 [facility] Comment on above: Result Comment: Calc ulations of estimated GFR are performed using the 2020 CKD-EPI Study Refit equation without the race variable for the IDMS-Traceable creatinine methods.https://jasn.asnjournals.org/content/ /ASN.1317629444 Performed By: #### 2 4321-2 ####BHANU Treviño (37512)[facility] ([facility])[address]297 [place] [address] Glucose [Mass/Vol] 98 mg/dL Normal 74-99 [facility] Comment on above: Performed By: #### 2 4321-2 ####BHANU GREGORY L (88928)[facility] ([facility])[address]90 [place] [address] Potassium [Moles/Vol] 4.5 mmol/L Normal 3.5-5.3 [facility] Comment on above: Performed By: #### 2 4321-2 ####BHANU Treviño (93025)[facility] ([facility])[address] [place] [address] 25297 Sodium [Moles/Vol] 141 mmol/L Normal 136-145 [facility] Comment on above: Performed By: #### 2 4321-2 ####BHANU GREGORY L (37116)[facility] ([facility])[address] [place] [address] 26939 Urea nitrogen [Mass/Vol] 15 mg/dL Normal 6-23 [facility] Comment on above: Performed By: #### 2 4321-2 ####BHANU Treviño (33308)[facility] ([facility])[address] [place] [address] 93167 CBC panel Auto (Bld)on 02-06 Erythrocyte distribution width (RBC) [Ratio] 20.2 % High 11.5-14.5 [facility] Comment on above: Performed By: #### 5 8410-2 ####BHANU GREGORY L (16860)[facility] ([facility])[address] [place] [address] 42876 Hematocrit (Bld) [Volume fraction] 26.1 % Low 41.0-52.0 [facility] Comment on above: Performed By: #### 5 8410-2 ####BHANU GREGORY L (37252)[facility] ([facility])30381 [place] [address] Hemoglobin (Bld) [Mass/Vol] 8.4 g/dL Low 13.5-17.5 [facility] Comment on above: Performed By: #### 5 8410-2 ####BHANU Treviño (50531)[facility] ([facility])90239 [place] [address] MCH (RBC) [Entitic mass] 25.1 pg Low 26.0-34.0 [facility] Comment on above: Performed By: #### 5 8410-2 ####BHANU Treviño (74620)[facility] ([facility])19339 [place] [address] MCHC (RBC) [Mass/Vol] 32.2 g/dL Normal 32.0-36.0 [facility] Comment on above: Performed By: #### 5 8410-2 ####BHANU Treviño (32176)[facility] ([facility])[address] [place] [address] 51318 MCV (RBC) [Entitic vol] 78 fL Low 80-100 [facility] Comment on above: Performed By: #### 5 8410-2 ####BHANU Treviño (02382)[facility] ([facility])[address] [place] [address] 92719 Nucleated RBC/100 WBC (Bld) [Ratio] 0.0 /100 WBCs Normal 0.0-0.0 [facility] Comment on above: Performed By: #### 5 8410-2 ####BHANU Treviño (57493)[facility] ([facility])[address]01 [place] [address] Platelets (Bld) [#/Vol] 426 x10*3/uL Normal 150-450 [facility] Comment on above: Performed By: #### 5 8410-2 ####BHANU Treviño (32634)[facility] ([facility])78250 [place] [address] RBC (Bld) [#/Vol] 3.34 x10*6/uL Low 4.50-5.90 [facility] Comment on above: Performed By: #### 5 8410-2 ####BHANU Treviño (45388)[facility] ([facility])[address] [place] [address] 69847 WBC (Bld) [#/Vol] 9.4 x10*3/uL Normal 4.4-11.3 [facility] Comment on above: Performed By: #### 5 8410-2 ####BHANU Treviño (79698)[facility] ([facility])[address] [place] [address] 58752 Magnesiumon 02-06-2025 Magnesium [Mass/Vol] 2.21 mg/dL Normal 1.60-2.40 [facility] Comment on above: Performed By: #### 1 9123-9 ####BHANU Treviño (54376)[facility] ([facility])[address] [place] [address] 58307 CBC panel Auto (Bld)on 02-05 Erythrocyte distribution width (RBC) [Ratio] 19.9 % High 11.5-14.5 [facility] Comment on above: Performed By: #### 5 8410-2 ####BHANU Treviño (05067)[facility] ([facility])[address] [place] [address] 67721 Hematocrit (Bld) [Volume fraction] 26.4 % Low 41.0-52.0 [facility] Comment on above: Performed By: #### 5 8410-2 ####BHANU Treviño (12890)[facility] ([facility])[address] [place] [address] 60272 Hemoglobin (Bld) [Mass/Vol] 8.4 g/dL Low 13.5-17.5 [facility] Comment on above: Performed By: #### 5 8410-2 ####BHANU Treviño (37469)[facility] ([facility])[address] [place] [address] 95826 MCH (RBC) [Entitic mass] 24.6 pg Low 26.0-34.0 [facility] Comment on above: Performed By: #### 5 8410-2 ####BHANU Treviño (80385)[facility] ([facility])[address]16 [place] [address] MCHC (RBC) [Mass/Vol] 31.8 g/dL Low 32.0-36.0 [facility] Comment on above: Performed By: #### 5 8410-2 ####BHANU Treviño (02856)[facility] ([facility])90355 [place] [address] MCV (RBC) [Entitic vol] 77 fL Low 80-100 [facility] Comment on above: Performed By: #### 5 8410-2 ####BHANU Treviño (09595)[facility] ([facility])[address]175 [place] [address] Nucleated RBC/100 WBC (Bld) [Ratio] 0.0 /100 WBCs Normal 0.0-0.0 [facility] Comment on above: Performed By: #### 5 8410-2 ####BHANU Treviño (07701)[facility] ([facility])[address]24 [place] [address] Platelets (Bld) [#/Vol] 399 x10*3/uL Normal 150-450 [facility] Comment on above: Performed By: #### 5 8410-2 ####BHANU Treviño (61828)[facility] ([facility])45193 [place] [address] RBC (Bld) [#/Vol] 3.41 x10*6/uL Low 4.50-5.90 [facility] Comment on above: Performed By: #### 5 8410-2 ####BHANU Treviño (48375)[facility] ([facility])35075 [place] [address] WBC (Bld) [#/Vol] 10.1 x10*3/uL Normal 4.4-11.3 [facility] Comment on above: Performed By: #### 5 8410-2 ####BHANU Treviño (32016)[facility] ([facility])[address]40 [place] [address] Magnesiumon 02-05-2025 Magnesium [Mass/Vol] 1.87 mg/dL Normal 1.60-2.40 [facility] Comment on above: Performed By: #### 1 9123-9 ####BHANU Treviño (05309)[facility] ([facility])65283 [place] [address] Renal function 2000 panelon 02-05-2025 Albumin BCP dye [Mass/Vol] 2.6 g/dL Low 3.4-5.0 [facility] Comment on above: Performed By: #### 2 4362-6 ####BHANU Treviño (44234)[facility] ([facility])21519 [place] [address] Anion gap [Moles/Vol] 13 mmol/L Normal 10-20 [facility] Comment on above: Performed By: #### 2 4362-6 ####BHANU Treviño (82254)[facility] ([facility])[address]22 [place] [address] Calcium [Mass/Vol] 7.7 mg/dL Low 8.6-10.6 [facility] Comment on above: Performed By: #### 2 4362-6 ####BHANU Treviño (29585)[facility] ([facility])05897 [place] [address] Chloride [Moles/Vol] 107 mmol/L Normal 98-107 [facility] Comment on above: Performed By: #### 2 4362-6 ####BHANU Treviño (54508)[facility] ([facility])[address]117 [place] [address] CO2 [Moles/Vol] 26 mmol/L Normal 21-32 [facility] Comment on above: Performed By: #### 2 4362-6 ####BHANU Treviño (54267)[facility] ([facility])[address]303 [place] [address] Creatinine [Mass/Vol] 1.02 mg/dL Normal 0.50-1.30 [facility] Comment on above: Performed By: #### 2 4362-6 ####BHANU Treviño (90195)[facility] ([facility])31675 [place] [address] Glomerular filtration rate/1.73 sq M.predicted 89 mL/min/1.73m*2 Normal >60 [facility] Comment on above: Result Comment: Calc ulations of estimated GFR are performed using the 2020 CKD-EPI Study Refit equation without the race variable for the IDMS-Traceable creatinine methods.https://jasn.asnjournals.org/content/ /ASN.8275320821 Performed By: #### 2 4362-6 ####BHANU Treviño (24455)[facility] ([facility])[address]32 [place] [address] Glucose [Mass/Vol] 94 mg/dL Normal 74-99 [facility] Comment on above: Performed By: #### 2 4362-6 ####BHANU Treviño (98875)[facility] ([facility])23551 [place] [address] Phosphate [Mass/Vol] 2.8 mg/dL Normal 2.5-4.9 [facility] Comment on above: Performed By: #### 2 4362-6 ####BHANU Treviño (61360)[facility] ([facility])07103 [place] [address] Potassium [Moles/Vol] 4.4 mmol/L Normal 3.5-5.3 [facility] Comment on above: Performed By: #### 2 4362-6 ####BHANU Treviño (53541)[facility] ([facility])[address]65 [place] [address] Sodium [Moles/Vol] 142 mmol/L Normal 136-145 [facility] Comment on above: Performed By: #### 2 4362-6 ####BHANU Treviño (53671)[facility] ([facility])[address] [place] [address] Urea nitrogen [Mass/Vol] 13 mg/dL Normal 6-23 [facility] Comment on above: Performed By: #### 2 4362-6 ####BHANU Treviño (69762)[facility] ([facility])[address]3442 [place] [address] Bacteria identifiedon 2024 Bacteria identified Cx Nom (Unsp spec) Abnormal [facility] Comment on above: Performed By: #### 6 463-4 ####BHANU Treviño (07933)[facility] ([facility])[address]89 [place] [address] Blood type and Indirect anti body screen panel (Bld)on 02-04-2025 ABO group Nom (Bld) A Normal [facility] Comment on above: Performed By: #### 3 4532-2 ####BHANU Treviño (89882)[facility] ([facility])[address] [facility] [place] [address] Blood group antibody screen Ql Negative Normal [facility] Comment on above: Performed By: #### 3 4532-2 ####BHANU Treviño (04662)[facility] ([facility])[address]130 [facility] [place] [address] D Ag Ql (Bld) Positive Normal [facility] Comment on above: Performed By: #### 3 4532-2 ####BHANU Treviño (76136)[facility] ([facility])[address]794 [facility] [place] [address] CBC panel Auto (Bld)on 02-04 Erythrocyte distribution width (RBC) [Ratio] 19.6 % High 11.5-14.5 [facility] Comment on above: Performed By: #### 5 8410-2 ####BHANU Treviño (03210)[facility] ([facility])[address] [place] [address] 16699 Hematocrit (Bld) [Volume fraction] 28.8 % Low 41.0-52.0 [facility] Comment on above: Performed By: #### 5 8410-2 ####BHANU Treviño (43272)[facility] ([facility])[address] [place] [address] 58408 Hemoglobin (Bld) [Mass/Vol] 9.1 g/dL Low 13.5-17.5 [facility] Comment on above: Performed By: #### 5 8410-2 ####BHANU Treviño (11000)[facility] ([facility])[address] [place] [address] 16238 MCH (RBC) [Entitic mass] 24.6 pg Low 26.0-34.0 [facility] Comment on above: Performed By: #### 5 8410-2 ####BHANU Treviño (73420)[facility] ([facility])[address] [place] [address] 11796 MCHC (RBC) [Mass/Vol] 31.6 g/dL Low 32.0-36.0 [facility] Comment on above: Performed By: #### 5 8410-2 ####BHANU Treviño (43424)[facility] ([facility])[address] [place] [address] 95059 MCV (RBC) [Entitic vol] 78 fL Low 80-100 [facility] Comment on above: Performed By: #### 5 8410-2 ####BHANU Treviño (70429)[facility] ([facility])[address] [place] [address] 92379 Nucleated RBC/100 WBC (Bld) [Ratio] 0.0 /100 WBCs Normal 0.0-0.0 [facility] Comment on above: Performed By: #### 5 8410-2 ####BHANU Treviño (42963)[facility] ([facility])[address] [place] [address] 61220 Platelets (Bld) [#/Vol] 430 x10*3/uL Normal 150-450 [facility] Comment on above: Performed By: #### 5 8410-2 ####BHANU Treviño (97651)[facility] ([facility])[address] [place] [address] 00153 RBC (Bld) [#/Vol] 3.70 x10*6/uL Low 4.50-5.90 [facility] Comment on above: Performed By: #### 5 8410-2 ####BHANU Treviño (96929)[facility] ([facility])[address] [place] [address] 91052 WBC (Bld) [#/Vol] 10.7 x10*3/uL Normal 4.4-11.3 [facility] Comment on above: Performed By: #### 5 8410-2 ####BHANU Treviño (15788)[facility] ([facility])[address] [place] [address] 59036 Fungus identifiedon 02-05-20 Fungus identified Cx Nom (Unsp spec) Abnormal [facility] Comment on above: Performed By: #### 5 80-1 ####BHANU Treviño (25554)[facility] ([facility])[address] [place] [address] 38994 Magnesiumon 02-04-2025 Magnesium [Mass/Vol] 1.84 mg/dL Normal 1.60-2.40 [facility] Comment on above: Performed By: #### 1 9123-9 ####BHANU Treviño (59040)[facility] ([facility])[address] [place] [address] 99136 PT and aPTT panel Coag (PPP) on 02-04-2025 aPTT Coag (PPP) [Time] 33 s Normal 26-36 [facility] Comment on above: Order Comment: The A PTT is no longer used for monitoring Unfractionated Heparin Therapy. For monitoring Heparin Therapy, use the Heparin Assay. Performed By: #### 3 4529-8 ####BHANU Treviño (42738)[facility] ([facility])[address] [place] [address] 77915 INR Coag (PPP) [Relative time] 1.2 High 0.9-1.1 [facility] Comment on above: Order Comment: The A PTT is no longer used for monitoring Unfractionated Heparin Therapy. For monitoring Heparin Therapy, use the Heparin Assay. Performed By: #### 3 4529-8 ####BHANU Treviño (08804)[facility] ([facility])[address] [place] [address] 59542 PT Coag (PPP) [Time] 13.4 s High 9.8-12.4 [facility] Comment on above: Order Comment: The A PTT is no longer used for monitoring Unfractionated Heparin Therapy. For monitoring Heparin Therapy, use the Heparin Assay. Performed By: #### 3 4529-8 ####BHANU Treviño ([id number])[facility] ([facility])[id number] [place] [address] Renal function 2000 panelon 02-04-2025 Albumin BCP dye [Mass/Vol] 2.5 g/dL Low 3.4-5.0 [facility] Comment on above: Performed By: #### 2 4362-6 ####BHANU Treviño ([id number])[facility] ([facility])[id number] [place] [address]182 Anion gap [Moles/Vol] 11 mmol/L Normal 10-20 [facility] Comment on above: Performed By: #### 2 4362-6 ####BHANU Treviño ([id number])[facility] ([facility])[id number] [place] [address] 52375 Calcium [Mass/Vol] 8.2 mg/dL Low 8.6-10.6 [facility] Comment on above: Performed By: #### 2 4362-6 ####BHANU Treviño ([id number])[facility] ([facility])[address] [place] [address] Chloride [Moles/Vol] 107 mmol/L Normal 98-107 [facility] Comment on above: Performed By: #### 2 4362-6 ####BHANU GREGORY L ([id number])[facility] ([facility])[address] [place] [address] CO2 [Moles/Vol] 28 mmol/L Normal 21-32 [facility] Comment on above: Performed By: #### 2 4362-6 ####BHANU Treviño ([id number])[facility] ([facility])[address] [place] [address] Creatinine [Mass/Vol] 1.23 mg/dL Normal 0.50-1.30 [facility] Comment on above: Performed By: #### 2 4362-6 ####BHANU Treviño ([id number])[facility] ([facility])[address] [place] [address] Glomerular filtration rate/1.73 sq M.predicted 71 mL/min/1.73m*2 Normal >60 [facility] Comment on above: Result Comment: Calc ulations of estimated GFR are performed using the 2020 CKD-EPI Study Refit equation without the race variable for the IDMS-Traceable creatinine methods.https://jasn.asnjournals.org/content/ /ASN.5388470637 Performed By: #### 2 4362-6 ####BHANU Treviño (42490)[facility] ([facility])[address] [place] [address] Glucose [Mass/Vol] 108 mg/dL High 74-99 [facility] Comment on above: Performed By: #### 2 4362-6 ####BHANU Treviño ([id number])[facility] ([facility])[address] [place] [address] Phosphate [Mass/Vol] 2.1 mg/dL Low 2.5-4.9 [facility] Comment on above: Performed By: #### 2 4362-6 ####BHANU Treviño ([id number])[facility] ([facility])[address] [place] [address] Potassium [Moles/Vol] 4.3 mmol/L Normal 3.5-5.3 [facility] Comment on above: Performed By: #### 2 4362-6 ####BHANU Treviño ([id number])[facility] ([facility])[address] [place] [address] Sodium [Moles/Vol] 142 mmol/L Normal 136-145 [facility] Comment on above: Performed By: #### 2 4362-6 ####BHANU Treviño (09069)[facility] ([facility])[address] [place] [address] Urea nitrogen [Mass/Vol] 15 mg/dL Normal 6-23 [facility] Comment on above: Performed By: #### 2 4362-6 ####BHANU Treviño ([id number])[facility] ([facility])[address] [place] [address] CBC W Auto Differential pane l (Bld)on 02-03-2025 Basophils (Bld) [#/Vol] 0.05 x10*3/uL Normal 0.00-0.10 [facility] Comment on above: Performed By: #### 5 7021-8 ####BHANU Treviño (53722)[facility] ([facility])[address] [place] [address] Basophils/100 WBC (Bld) 0.7 % Normal 0.0-2.0 [facility] Comment on above: Performed By: #### 5 7021-8 ####BHANU Treviño (78723)[facility] ([facility])[address] [place] [address] Eosinophils (Bld) [#/Vol] 0.55 x10*3/uL Normal 0.00-0.70 [facility] Comment on above: Performed By: #### 5 7021-8 ####BHANU Treviño (41342)[facility] ([facility])[address] [place] [address] Eosinophils/100 WBC (Bld) 7.4 % Normal 0.0-6.0 [facility] Comment on above: Performed By: #### 5 7021-8 ####BHANU Treviño (47706)[facility] ([facility])[address] [place] [address] Erythrocyte distribution width (RBC) [Ratio] 20.0 % High 11.5-14.5 [facility] Comment on above: Performed By: #### 5 7021-8 ####BHANU Treviño (36681)[facility] ([facility])[address] [place] [address] Hematocrit (Bld) [Volume fraction] 25.4 % Low 41.0-52.0 [facility] Comment on above: Performed By: #### 5 7021-8 ####BHANU Treviño (87283)[facility] ([facility])[address] [place] [address] Hemoglobin (Bld) [Mass/Vol] 8.0 g/dL Low 13.5-17.5 [facility] Comment on above: Performed By: #### 5 7021-8 ####BHANU Treviño (71978)[facility])[address] [place] [address] Immature granulocytes (Bld) [#/Vol] 0.03 x10*3/uL Normal 0.00-0.70 [facility] Comment on above: Performed By: #### 5 7021-8 ####BHANU Treviño (88596)[facility] ([facility])[address] [place] [address] Immature granulocytes/100 WBC (Bld) 0.4 % Normal 0.0-0.9 [facility] Comment on above: Result Comment: Christine ture Granulocyte Count (IG) includes promyelocytes, myelocytes and metamyelocytes but does not include bands. Percent differential counts (%) should be interpreted in the context of the absolute cell counts (cells/UL). Performed By: #### 5 7021-8 ####BHANU Treviño ([id number])[facility] ([facility])[address] [place] [address] Lymphocytes (Bld) [#/Vol] 1.37 x10*3/uL Normal 1.20-4.80 [facility] Comment on above: Performed By: #### 5 7021-8 ####BHANU Treviño (78924)[facility])[address] [place] [address] Lymphocytes/100 WBC (Bld) 18.4 % Normal 13.0-44.0 [facility] Comment on above: Performed By: #### 5 7021-8 ####BHANU rTeviño (82938)[facility] ([facility])[address] [place] [address] MCH (RBC) [Entitic mass] 24.2 pg Low 26.0-34.0 [facility] Comment on above: Performed By: #### 5 7021-8 ####BHANU Treviño (19721)[facility] ([facility])[address] [place] [address] MCHC (RBC) [Mass/Vol] 31.5 g/dL Low 32.0-36.0 [facility] Comment on above: Performed By: #### 5 7021-8 ####BHANU Treviño (23615)[facility])[address] [place] [address] MCV (RBC) [Entitic vol] 77 fL Low 80-100 [facility] Comment on above: Performed By: #### 5 7021-8 ####BHANU Treviño (14380)[facility])[address] [place] [address] Monocytes (Bld) [#/Vol] 0.67 x10*3/uL Normal 0.10-1.00 [facility] Comment on above: Performed By: #### 5 7021-8 ####BHANU Treviño (40084)[facility])[address]43 [place] [address] Monocytes/100 WBC (Bld) 9.0 % Normal 2.0-10.0 [facility] Comment on above: Performed By: #### 5 7021-8 ####BHANU Treviño (83609)[facility])[address] [place] [address] Neutrophils (Bld) [#/Vol] 4.77 x10*3/uL Normal 1.20-7.70 [facility] Comment on above: Result Comment: Perc ent differential counts (%) should be interpreted in the context of the absolute cell counts (cells/uL). Performed By: #### 5 7021-8 ####BHANU Treviño (28115)[facility] ([facility])[address] [place] [address] Neutrophils/100 WBC (Bld) 64.1 % Normal 40.0-80.0 [facility] Comment on above: Performed By: #### 5 7021-8 ####BHANU Treviño (49709)[facility])[address] [place] [address] Nucleated RBC/100 WBC (Bld) [Ratio] 0.0 /100 WBCs Normal 0.0-0.0 [facility] Comment on above: Performed By: #### 5 7021-8 ####BHANU Treviño (77724)[facility] ([facility])[address]201 [place] [address] Platelets (Bld) [#/Vol] 407 x10*3/uL Normal 150-450 [facility] Comment on above: Performed By: #### 5 7021-8 ####BHANU FLEMINGMOJOSEFA Treviño ([id number])[facility] ([facility])[address] [place] [address] RBC (Bld) [#/Vol] 3.31 x10*6/uL Low 4.50-5.90 [facility] Comment on above: Performed By: #### 5 7021-8 ####BHANU Treviño (11923)[facility] ([facility])[address]151 [place] [address] WBC (Bld) [#/Vol] 7.4 x10*3/uL Normal 4.4-11.3 [facility] Comment on above: Performed By: #### 5 7021-8 ####BHANU Treviño (86476)[facility] ([facility])[address] [place] [address] Glucose Test strip manual (B ld) [Mass/Vol]on 02-03-2025 Glucose [Mass/Vol] 102 mg/dL High 74-99 [facility] Comment on above: Performed By: #### 2 341-6 ####BHANU Treviño (38589)[facility] ([facility])[address] [place] [address] Renal function 2000 panelon 02-03-2025 Albumin BCP dye [Mass/Vol] 2.4 g/dL Low 3.4-5.0 [facility] Comment on above: Performed By: #### 2 4362-6 ####BHANU Treviño (91476)[facility])[address]131 [place] [address] Anion gap [Moles/Vol] 10 mmol/L Normal 10-20 [facility] Comment on above: Performed By: #### 2 4362-6 ####BHANU Treviño (50310)[facility])[address]60 [place] [address] Calcium [Mass/Vol] 7.8 mg/dL Low 8.6-10.6 [facility] Comment on above: Performed By: #### 2 4362-6 ####BHANU Treviño (70432)[facility] ([facility])[address] [place] [address] Chloride [Moles/Vol] 107 mmol/L Normal 98-107 [facility] Comment on above: Performed By: #### 2 4362-6 ####BHANU Treviño (99980)[facility])[address]38 [place] [address] CO2 [Moles/Vol] 30 mmol/L Normal 21-32 [facility] Comment on above: Performed By: #### 2 4362-6 ####BHANU Treviño (39102)[facility])[address]126 [place] [address] Creatinine [Mass/Vol] 1.10 mg/dL Normal 0.50-1.30 [facility] Comment on above: Performed By: #### 2 4362-6 ####BHANU Treviño (05801)[facility] ([facility])[address]139 [place] [address] Glomerular filtration rate/1.73 sq M.predicted 81 mL/min/1.73m*2 Normal >60 [facility] Comment on above: Result Comment: Calc ulations of estimated GFR are performed using the 2020 CKD-EPI Study Refit equation without the race variable for the IDMS-Traceable creatinine methods.https://jasn.asnjournals.org/content/ /ASN.0408424429 Performed By: #### 2 4362-6 ####BHANU Treviño (56267)[facility] ([facility])[address]92 [place] [address] Glucose [Mass/Vol] 94 mg/dL Normal 74-99 [facility] Comment on above: Performed By: #### 2 4362-6 ####BHANU Treviño (47068)[facility])[address] [place] [address] Phosphate [Mass/Vol] 2.9 mg/dL Normal 2.5-4.9 [facility] Comment on above: Performed By: #### 2 4362-6 ####BHANU Treviño (02295)[facility])[address]33 [place] [address] Potassium [Moles/Vol] 4.9 mmol/L Normal 3.5-5.3 [facility] Comment on above: Performed By: #### 2 4362-6 ####BHANU Treviño (18061)[facility])[address]145 [place] [address] Sodium [Moles/Vol] 142 mmol/L Normal 136-145 [facility] Comment on above: Performed By: #### 2 4362-6 ####BHANU Treviño (89797)[facility] ([facility])[address] [place] [address] Urea nitrogen [Mass/Vol] 15 mg/dL Normal 6-23 [facility] Comment on above: Performed By: #### 2 4362-6 ####BHANU Treviño (48647)[facility] ([facility])[address] [place] [address] CBC W Auto Differential pane l (Bld)on 02-02-2025 Basophils (Bld) [#/Vol] 0.05 x10*3/uL Normal 0.00-0.10 [facility] Comment on above: Performed By: #### 5 7021-8 ####BHANU Treviño (65310)[facility] ([facility])[address]245 [place] [address] Basophils/100 WBC (Bld) 0.9 % Normal 0.0-2.0 [facility] Comment on above: Performed By: #### 5 7021-8 ####BHANU Treviño (24727)[facility] ([facility])[address] [place] [address] Eosinophils (Bld) [#/Vol] 0.51 x10*3/uL Normal 0.00-0.70 [facility] Comment on above: Performed By: #### 5 7021-8 ####BHANU Treviño (23781)[facility] ([facility])[address]267 [place] [address] Eosinophils/100 WBC (Bld) 9.2 % Normal 0.0-6.0 [facility] Comment on above: Performed By: #### 5 7021-8 ####BHANU Treviño (76456)[facility] ([facility])[address]681 [place] [address] Erythrocyte distribution width (RBC) [Ratio] 19.2 % High 11.5-14.5 [facility] Comment on above: Performed By: #### 5 7021-8 ####BHANU Treviño (18393)[facility] ([facility])[address] [place] [address] Hematocrit (Bld) [Volume fraction] 30.4 % Low 41.0-52.0 [facility] Comment on above: Performed By: #### 5 7021-8 ####BHANU Treviño (64870)[facility] ([facility])[address]50 [place] [address] Hemoglobin (Bld) [Mass/Vol] 9.7 g/dL Low 13.5-17.5 [facility] Comment on above: Performed By: #### 5 7021-8 ####BHANU Treviño (27739)[facility] ([facility])[address]91 [place] [address] Immature granulocytes (Bld) [#/Vol] 0.02 x10*3/uL Normal 0.00-0.70 [facility] Comment on above: Performed By: #### 5 7021-8 ####BHANU FLEMINGMOTZALANNA L (02707)[facility] ([facility])[address]22 [place] [address] Immature granulocytes/100 WBC (Bld) 0.4 % Normal 0.0-0.9 [facility] Comment on above: Result Comment: Christine ture Granulocyte Count (IG) includes promyelocytes, myelocytes and metamyelocytes but does not include bands. Percent differential counts (%) should be interpreted in the context of the absolute cell counts (cells/UL). Performed By: #### 5 7021-8 ####BHANU Treviño (35216)[facility] ([facility])[address]682 [place] [address] Lymphocytes (Bld) [#/Vol] 0.92 x10*3/uL Low 1.20-4.80 [facility] Comment on above: Performed By: #### 5 7021-8 ####BHANU Treviño (80110)[facility] ([facility])[address] [place] [address] Lymphocytes/100 WBC (Bld) 16.6 % Normal 13.0-44.0 [facility] Comment on above: Performed By: #### 5 7021-8 ####BHANU Treviño (34222)[facility] ([facility])[address] [place] [address] MCH (RBC) [Entitic mass] 24.4 pg Low 26.0-34.0 [facility] Comment on above: Performed By: #### 5 7021-8 ####BHANU Treviño (50495)[facility] ([facility])[address] [place] [address] MCHC (RBC) [Mass/Vol] 31.9 g/dL Low 32.0-36.0 [facility] Comment on above: Performed By: #### 5 7021-8 ####BHANU Treviño (08922)[facility] ([facility])[address]13 [place] [address] MCV (RBC) [Entitic vol] 77 fL Low 80-100 [facility] Comment on above: Performed By: #### 5 7021-8 ####BHANU Treviño (85180)[facility] ([facility])[address] [place] [address] Monocytes (Bld) [#/Vol] 0.63 x10*3/uL Normal 0.10-1.00 [facility] Comment on above: Performed By: #### 5 7021-8 ####BHANU Treviño (55312)[facility] ([facility])[address]26 [place] [address] Monocytes/100 WBC (Bld) 11.4 % Normal 2.0-10.0 [facility] Comment on above: Performed By: #### 5 7021-8 ####BHANU Treviño (25282)[facility] ([facility])[address]40 [place] [address] Neutrophils (Bld) [#/Vol] 3.41 x10*3/uL Normal 1.20-7.70 [facility] Comment on above: Result Comment: Perc ent differential counts (%) should be interpreted in the context of the absolute cell counts (cells/uL). Performed By: #### 5 7021-8 ####BHANU Treviño (64451)[facility] ([facility])[address]53 [place] [address] Neutrophils/100 WBC (Bld) 61.5 % Normal 40.0-80.0 [facility] Comment on above: Performed By: #### 5 7021-8 ####BHANU Treviño (61836)[facility] ([facility])[address]198 [place] [address] Nucleated RBC/100 WBC (Bld) [Ratio] 0.0 /100 WBCs Normal 0.0-0.0 [facility] Comment on above: Performed By: #### 5 7021-8 ####BHANU Treviño (15102)[facility] ([facility])[address]238 [place] [address] Platelets (Bld) [#/Vol] 347 x10*3/uL Normal 150-450 [facility] Comment on above: Performed By: #### 5 7021-8 ####BHANU Treviño (88221)[facility] ([facility])[address]001 [place] [address] RBC (Bld) [#/Vol] 3.97 x10*6/uL Low 4.50-5.90 [facility] Comment on above: Performed By: #### 5 7021-8 ####BHAUN Treviño (12486)[facility] ([facility])[address] [place] [address] WBC (Bld) [#/Vol] 5.5 x10*3/uL Normal 4.4-11.3 [facility] Comment on above: Performed By: #### 5 7021-8 ####BHANU Treviño (22906)[facility] ([facility])[address] [place] [address] Glucose Test strip manual (B ld) [Mass/Vol]on 02-02-2025 Glucose [Mass/Vol] 94 mg/dL Normal 74-99 [facility] Comment on above: Performed By: #### 2 341-6 ####BHANU Treviño (68633)[facility] ([facility])[address] [place] [address] Glucose [Mass/Vol] 107 mg/dL High 74-99 [facility] Comment on above: Performed By: #### 2 341-6 ####BHANU Treviño (33237)[facility] ([facility])[address] [place] [address] Prealbuminon 02-02-2025 Prealbumin [Mass/Vol] 7.5 mg/dL Low 18.0-40.0 [facility] Comment on above: Performed By: #### 1 4338-8 ####BHANU Treviño (81787)[facility] ([facility])[address] [place] [address]9867 Renal function 2000 panelon 02-02-2025 Albumin BCP dye [Mass/Vol] 2.4 g/dL Low 3.4-5.0 [facility] Comment on above: Performed By: #### 2 4362-6 ####BHANU Treviño (92769)[facility] ([facility])[address] [place] [address] Anion gap [Moles/Vol] 12 mmol/L Normal 10-20 [facility] Comment on above: Performed By: #### 2 4362-6 ####BHANU Treviño (13107)[facility] ([facility])[address]398 [place] [address] Calcium [Mass/Vol] 7.9 mg/dL Low 8.6-10.6 [facility] Comment on above: Performed By: #### 2 4362-6 ####BHANU GREGORY L (05019)[facility] ([facility])[address]84 [place] [address] Chloride [Moles/Vol] 107 mmol/L Normal 98-107 [facility] Comment on above: Performed By: #### 2 4362-6 ####BHANU Treviño (83579)[facility] ([facility])[address]40 [place] [address] CO2 [Moles/Vol] 28 mmol/L Normal 21-32 [facility] Comment on above: Performed By: #### 2 4362-6 ####BHANU Treviño (46506)[facility] ([facility])[address]791 [place] [address] Creatinine [Mass/Vol] 1.19 mg/dL Normal 0.50-1.30 [facility] Comment on above: Performed By: #### 2 4362-6 ####BHANU Treviño (43626)[facility] ([facility])[address]76 [place] [address] Glomerular filtration rate/1.73 sq M.predicted 74 mL/min/1.73m*2 Normal >60 [facility] Comment on above: Result Comment: Calc ulations of estimated GFR are performed using the 2020 CKD-EPI Study Refit equation without the race variable for the IDMS-Traceable creatinine methods.https://jasn.asnjournals.org/content/ /ASN.8247264635 Performed By: #### 2 4362-6 ####BHANU Treviño (83153)[facility] ([facility])80343 [place] [address] Glucose [Mass/Vol] 85 mg/dL Normal 74-99 [facility] Comment on above: Performed By: #### 2 4362-6 ####BHANU Treviño (29143)[facility] ([facility])[address]11 [place] [address] Phosphate [Mass/Vol] 2.8 mg/dL Normal 2.5-4.9 [facility] Comment on above: Performed By: #### 2 4362-6 ####BHANU Treviño (97893)[facility] ([facility])[address]206 [place] [address] Potassium [Moles/Vol] 4.6 mmol/L Normal 3.5-5.3 [facility] Comment on above: Performed By: #### 2 4362-6 ####BHANU Treviño (69166)[facility] ([facility])[address]67 [place] [address] Sodium [Moles/Vol] 142 mmol/L Normal 136-145 [facility] Comment on above: Performed By: #### 2 4362-6 ####BHANU Treviño (94120)[facility] ([facility])[address]47 [place] [address] Urea nitrogen [Mass/Vol] 15 mg/dL Normal 6-23 [facility] Comment on above: Performed By: #### 2 4362-6 ####BHANU Treviño (07193)[facility] ([facility])[address] [place] [address] Basic metabolic 2000 panelon 02-01-2025 Anion gap [Moles/Vol] 13 mmol/L Normal 10-20 [facility] Comment on above: Performed By: #### 2 4321-2 ####BHANU Treviño (61294)[facility] ([facility])[address]52 [place] [address] Calcium [Mass/Vol] 7.9 mg/dL Low 8.6-10.6 [facility] Comment on above: Performed By: #### 2 4321-2 ####BHANU Treviño (94552)[facility] ([facility])[address]40 [place] [address] Chloride [Moles/Vol] 106 mmol/L Normal 98-107 [facility] Comment on above: Performed By: #### 2 4321-2 ####BHANU Treviño (45377)[facility] ([facility])[address]696 [place] [address] CO2 [Moles/Vol] 29 mmol/L Normal 21-32 [facility] Comment on above: Performed By: #### 2 4321-2 ####BHANU Treviño (65106)[facility] ([facility])[address]137 [place] [address] Creatinine [Mass/Vol] 1.35 mg/dL High 0.50-1.30 [facility] Comment on above: Performed By: #### 2 4321-2 ####BHANU Treviño (15062)[facility] ([facility])[address]19 [place] [address] Glomerular filtration rate/1.73 sq M.predicted 64 mL/min/1.73m*2 Normal >60 [facility] Comment on above: Result Comment: Calc ulations of estimated GFR are performed using the 2020 CKD-EPI Study Refit equation without the race variable for the IDMS-Traceable creatinine methods.https://jasn.asnjournals.org/content/early/ /ASN.1863549891 Performed By: #### 2 4321-2 ####BHANU Treviño (50318)[facility] ([facility])[address]12 [place] [address] Glucose [Mass/Vol] 81 mg/dL Normal 74-99 [facility] Comment on above: Performed By: #### 2 4321-2 ####BHANU Treviño (48340)[facility] ([facility])[address]108 [place] [address] Potassium [Moles/Vol] 4.5 mmol/L Normal 3.5-5.3 [facility] Comment on above: Performed By: #### 2 4321-2 ####BHANU Treviño (06169)[facility] ([facility])[address] [place] [address] Sodium [Moles/Vol] 143 mmol/L Normal 136-145 [facility] Comment on above: Performed By: #### 2 4321-2 ####BHANU Treviño (41808)[facility] ([facility])[address]695 [place] [address] Urea nitrogen [Mass/Vol] 15 mg/dL Normal 6-23 [facility] Comment on above: Performed By: #### 2 4321-2 ####BHANU Treviño (16812)[facility] ([facility])[address]85 [place] [address] Blood type and Indirect anti body screen panel (Bld)on 02-01-2025 ABO group Nom (Bld) A Normal [facility] Comment on above: Performed By: #### 3 4532-2 ####BHANU Treviño (07336)[facility] ([facility])[address] [facility] [place] [address] Blood group antibody screen Ql Negative [facility] Comment on above: Performed By: #### 3 4532-2 ####BHANU Treviño ([id number])[facility] ([facility])[address] [address] [place] [place] [address] D Ag Ql (Bld) Positive [facility] Comment on above: Performed By: #### 3 4532-2 ####BHANU Treviño ([id number])[facility] ([facility])[address] [facility] [place] [address] CBC panel Auto (Bld)on 02-01 Erythrocyte distribution width (RBC) [Ratio] 19.1 % High 11.5-14.5 [facility] Comment on above: Performed By: #### 5 8410-2 ####BHANU Treviño ([id number])[facility] ([facility])[id number] [place] [id number] Hematocrit (Bld) [Volume fraction] 25.0 % Low 41.0-52.0 [facility] Comment on above: Performed By: #### 5 8410-2 ####BHANU Treviño ([id number])[facility] ([facility])[address] [place] [address] 96800 Hemoglobin (Bld) [Mass/Vol] 8.0 g/dL Low 13.5-17.5 [facility] Comment on above: Performed By: #### 5 8410-2 ####BHANU Treviño (67420)[facility] ([facility])[address] [place] [address] 44638 MCH (RBC) [Entitic mass] 25.2 pg Low 26.0-34.0 [facility] Comment on above: Performed By: #### 5 8410-2 ####BHANU Treviño ([id number])[facility] ([facility])[address] [place] [address] 67478 MCHC (RBC) [Mass/Vol] 32.0 g/dL Normal 32.0-36.0 [facility] Comment on above: Performed By: #### 5 8410-2 ####BHANU Treviño ([id number])[facility] ([facility])[address] [place] [address] 26889 MCV (RBC) [Entitic vol] 79 fL Low 80-100 [facility] Comment on above: Performed By: #### 5 8410-2 ####BHANU Treviño (67041)[facility] ([facility])[address] [place] [address] 64889 Nucleated RBC/100 WBC (Bld) [Ratio] 0.0 /100 WBCs Normal 0.0-0.0 [facility] Comment on above: Performed By: #### 5 8410-2 ####BHANU Treviño (23214)[facility] ([facility])[address] [place] [address] Platelets (Bld) [#/Vol] 433 x10*3/uL Normal 150-450 [facility] Comment on above: Performed By: #### 5 8410-2 ####BHANU Treviño (83732)[facility] ([facility])[address]179 [place] [address] RBC (Bld) [#/Vol] 3.18 x10*6/uL Low 4.50-5.90 [facility] Comment on above: Performed By: #### 5 8410-2 ####BHANU Treviño (54962)[facility] ([facility])[address]99 [place] [address] WBC (Bld) [#/Vol] 6.9 x10*3/uL Normal 4.4-11.3 [facility] Comment on above: Performed By: #### 5 8410-2 ####BHANU Treviño (87436)[facility] ([facility])[address]99 [place] [address] Glucose Test strip manual (B ld) [Mass/Vol]on 02-01-2025 Glucose [Mass/Vol] 98 mg/dL Normal 74-99 [facility] Comment on above: Performed By: #### 2 341-6 ####BHANU Treviño (03239)[facility] ([facility])[address]40 [place] [address] Glucose [Mass/Vol] 127 mg/dL High 74-99 [facility] Comment on above: Performed By: #### 2 341-6 ####BHANU Treviño (62817)[facility] ([facility])[address] [place] [address] Glucose [Mass/Vol] 110 mg/dL High 74-99 [facility] Comment on above: Performed By: #### 2 341-6 ####BHANU Treviño ([id number])[facility] ([facility])[address]49 [place] [address] CBC W Auto Differential pane l (Bld)on 01-31-2025 Basophils (Bld) [#/Vol] 0.04 x10*3/uL Normal 0.00-0.10 [facility] Comment on above: Performed By: #### 5 7021-8 ####BHANU Treviño (55164)[facility] ([facility])[address] [place] [address] 87269 Basophils/100 WBC (Bld) 0.5 % Normal 0.0-2.0 [facility] Comment on above: Performed By: #### 5 7021-8 ####BHANU Treviño (29264)[facility] ([facility])[address] [place] [address] 46392 Eosinophils (Bld) [#/Vol] 0.01 x10*3/uL Normal 0.00-0.70 [facility] Comment on above: Performed By: #### 5 7021-8 ####BHANU Treviño (93090)[facility] ([facility])[address] [place] [address] 44308 Eosinophils/100 WBC (Bld) 0.1 % Normal 0.0-6.0 [facility] Comment on above: Performed By: #### 5 7021-8 ####BHANU Treviño (09986)[facility] ([facility])[address] [place] [address] 87270 Erythrocyte distribution width (RBC) [Ratio] 19.6 % High 11.5-14.5 [facility] Comment on above: Performed By: #### 5 7021-8 ####BHANU Treviño (47722)[facility] ([facility])[address] [place] [address] 65232 Hematocrit (Bld) [Volume fraction] 21.9 % Low 41.0-52.0 [facility] Comment on above: Performed By: #### 5 7021-8 ####BHANU Treviño (21042)[facility] ([facility])[address]248 [place] [address] Hemoglobin (Bld) [Mass/Vol] 7.1 g/dL Low 13.5-17.5 [facility] Comment on above: Performed By: #### 5 7021-8 ####BHANU Treviño (48391)[facility] ([facility])[address]576 [place] [address] Immature granulocytes (Bld) [#/Vol] 0.06 x10*3/uL Normal 0.00-0.70 [facility] Comment on above: Performed By: #### 5 7021-8 ####BHANU Treviño (44407)[facility] ([facility])[address]18 [place] [address] Immature granulocytes/100 WBC (Bld) 0.7 % Normal 0.0-0.9 [facility] Comment on above: Result Comment: Christine ture Granulocyte Count (IG) includes promyelocytes, myelocytes and metamyelocytes but does not include bands. Percent differential counts (%) should be interpreted in the context of the absolute cell counts (cells/UL). Performed By: #### 5 7021-8 ####BHANU Treviño (50575)[facility] ([facility])[address]83 [place] [address] Lymphocytes (Bld) [#/Vol] 1.27 x10*3/uL Normal 1.20-4.80 [facility] Comment on above: Performed By: #### 5 7021-8 ####BHANU Treviño (44235)[facility] ([facility])79251 [place] [address] Lymphocytes/100 WBC (Bld) 14.6 % Normal 13.0-44.0 [facility] Comment on above: Performed By: #### 5 7021-8 ####BHANU Treviño (55963)[facility] ([facility])[address]98 [place] [address] MCH (RBC) [Entitic mass] 24.1 pg Low 26.0-34.0 [facility] Comment on above: Performed By: #### 5 7021-8 ####BHANU Treviño (46040)[facility] ([facility])[address]235 [place] [address] MCHC (RBC) [Mass/Vol] 32.4 g/dL Normal 32.0-36.0 [facility] Comment on above: Performed By: #### 5 7021-8 ####BHANU Treviño (47706)[facility] ([facility])25942 [place] [address] MCV (RBC) [Entitic vol] 75 fL Low 80-100 [facility] Comment on above: Performed By: #### 5 7021-8 ####BHANU Treviño (61747)[facility] ([facility])[address]321 [place] [address] Monocytes (Bld) [#/Vol] 0.94 x10*3/uL Normal 0.10-1.00 [facility] Comment on above: Performed By: #### 5 7021-8 ####BHANU Treviño (47681)[facility] ([facility])[address]88 [place] [address] Monocytes/100 WBC (Bld) 10.8 % Normal 2.0-10.0 [facility] Comment on above: Performed By: #### 5 7021-8 ####BHANU Treviño (81296)[facility] ([facility])[address]45 [place] [address] Neutrophils (Bld) [#/Vol] 6.39 x10*3/uL Normal 1.20-7.70 [facility] Comment on above: Result Comment: Perc ent differential counts (%) should be interpreted in the context of the absolute cell counts (cells/uL). Performed By: #### 5 7021-8 ####BHANU Treviño (10808)[facility] ([facility])[address]216 [place] [address] Neutrophils/100 WBC (Bld) 73.3 % Normal 40.0-80.0 [facility] Comment on above: Performed By: #### 5 7021-8 ####BHANU Treviño (12455)[facility] ([facility])[address]313 [place] [address] Nucleated RBC/100 WBC (Bld) [Ratio] 0.0 /100 WBCs Normal 0.0-0.0 [facility] Comment on above: Performed By: #### 5 7021-8 ####BHANU Treviño (95911)[facility] ([facility])[address]326 [place] [address] Platelets (Bld) [#/Vol] 455 x10*3/uL High 150-450 [facility] Comment on above: Performed By: #### 5 7021-8 ####BHANU GREGORY L (11123)[facility] ([facility])[address]94 [place] [address] RBC (Bld) [#/Vol] 2.94 x10*6/uL Low 4.50-5.90 [facility] Comment on above: Performed By: #### 5 7021-8 ####BHANU Treviño (02311)[facility] ([facility])33269 [place] [address] WBC (Bld) [#/Vol] 8.7 x10*3/uL Normal 4.4-11.3 [facility] Comment on above: Performed By: #### 5 7021-8 ####BHANU GREGORY L (06330)[facility] ([facility])04365 [place] [address] Glucose Test strip manual (B ld) [Mass/Vol]on 01-31-2025 Glucose [Mass/Vol] 97 mg/dL Normal 74-99 [facility] Comment on above: Performed By: #### 2 341-6 ####BHANU Treviño (71339)[facility] ([facility])[address]88 [place] [address] Glucose [Mass/Vol] 107 mg/dL High 74-99 [facility] Comment on above: Performed By: #### 2 341-6 ####BHANU Treviño (60441)[facility] ([facility])30653 [place] [address] Magnesiumon 01-31-2025 Magnesium [Mass/Vol] 2.07 mg/dL Normal 1.60-2.40 [facility] Comment on above: Performed By: #### 1 9123-9 ####BHANU Treviño (56986)[facility] ([facility])[address]78 [place] [address] Renal function 2000 panelon 01-31-2025 Albumin BCP dye [Mass/Vol] 2.6 g/dL Low 3.4-5.0 [facility] Comment on above: Performed By: #### 2 4362-6 ####BHANU Treviño (10889)[facility] ([facility])[address] [place] [address] 13692 Anion gap [Moles/Vol] 13 mmol/L Normal 10-20 [facility] Comment on above: Performed By: #### 2 4362-6 ####BHANU Treviño (04091)[facility] ([facility])[address]144 [place] [address] Calcium [Mass/Vol] 8.2 mg/dL Low 8.6-10.6 [facility] Comment on above: Performed By: #### 2 4362-6 ####BHANU Treviño (82603)[facility] ([facility])[address]2884 [place] [address] Chloride [Moles/Vol] 102 mmol/L Normal 98-107 [facility] Comment on above: Performed By: #### 2 4362-6 ####BHANU Treviño (73089)[facility] ([facility])10084 [place] [address] CO2 [Moles/Vol] 29 mmol/L Normal 21-32 [facility] Comment on above: Performed By: #### 2 4362-6 ####BHANU Treviño (53126)[facility] ([facility])48162 [place] [address] Creatinine [Mass/Vol] 1.04 mg/dL Normal 0.50-1.30 [facility] Comment on above: Performed By: #### 2 4362-6 ####BHANU Treviño (28228)[facility] ([facility])[address]559 [place] [address] Glomerular filtration rate/1.73 sq M.predicted 87 mL/min/1.73m*2 Normal >60 [facility] Comment on above: Result Comment: Calc ulations of estimated GFR are performed using the 2020 CKD-EPI Study Refit equation without the race variable for the IDMS-Traceable creatinine methods.https://jasn.asnjournals.org/content/early /ASN.1375870380 Performed By: #### 2 4362-6 ####BHANU Treviño (62756)[facility] ([facility])[address]211 [place] [address] Glucose [Mass/Vol] 104 mg/dL High 74-99 [facility] Comment on above: Performed By: #### 2 4362-6 ####BHANU Treviño (03337)[facility] ([facility])29219 [place] [address] Phosphate [Mass/Vol] 3.6 mg/dL Normal 2.5-4.9 [facility] Comment on above: Performed By: #### 2 4362-6 ####BHANU Treviño (39522)[facility] ([facility])31859 [place] [address] Potassium [Moles/Vol] 4.4 mmol/L Normal 3.5-5.3 [facility] Comment on above: Performed By: #### 2 4362-6 ####BHANU Treviño (55208)[facility] ([facility])[address]268 [place] [address] Sodium [Moles/Vol] 140 mmol/L Normal 136-145 [facility] Comment on above: Performed By: #### 2 4362-6 ####BHANU Treviño (28234)[facility] ([facility])66699 [place] [address] Urea nitrogen [Mass/Vol] 12 mg/dL Normal 6-23 [facility] Comment on above: Performed By: #### 2 4362-6 ####BHANU Treviño (72224)[facility] ([facility])[address] [place] [address] 47669 Bacteria identifiedon 2024 Bacteria identified Cx Nom (Unsp spec) Abnormal [facility] Comment on above: Performed By: #### 6 463-4 ####BHANU Treviño (78589)[facility] ([facility])[address] [place] [address] 57024 Bacteria identified Cx Nom (Unsp spec) Abnormal [facility] Comment on above: Performed By: #### 6 463-4 ####BHANU Treviño (61874)[facility] ([facility])[address] [place] [address] 07506 CBC W Auto Differential pane l (Bld)on 01-30-2025 Basophils (Bld) [#/Vol] 0.05 x10*3/uL Normal 0.00-0.10 [facility] Comment on above: Performed By: #### 5 7021-8 ####BHANU Treviño (82420)[facility] ([facility])[address] [place] [address] 78279 Basophils/100 WBC (Bld) 0.7 % Normal 0.0-2.0 [facility] Comment on above: Performed By: #### 5 7021-8 ####BHANU Treviño (10119)[facility] ([facility])[address] [place] [address] Eosinophils (Bld) [#/Vol] 0.14 x10*3/uL Normal 0.00-0.70 [facility] Comment on above: Performed By: #### 5 7021-8 ####BHANU Treviño (83061)[facility] ([facility])[address] [place] [address] 95927 Eosinophils/100 WBC (Bld) 2.0 % Normal 0.0-6.0 [facility] Comment on above: Performed By: #### 5 7021-8 ####BHANU Treviño (06528)[facility] ([facility])[address] [place] [address] 17037 Erythrocyte distribution width (RBC) [Ratio] 19.9 % High 11.5-14.5 [facility] Comment on above: Performed By: #### 5 7021-8 ####BHANU Treviño (29143)[facility] ([facility])[address] [place] [address] 88484 Hematocrit (Bld) [Volume fraction] 26.3 % Low 41.0-52.0 [facility] Comment on above: Performed By: #### 5 7021-8 ####BHANU Treviño (35929)[facility] ([facility])[address] [place] [address] 95090 Hemoglobin (Bld) [Mass/Vol] 8.3 g/dL Low 13.5-17.5 [facility] Comment on above: Performed By: #### 5 7021-8 ####BHANU Treviño (34006)[facility] ([facility])[address] [place] [address] 77327 Immature granulocytes (Bld) [#/Vol] 0.02 x10*3/uL Normal 0.00-0.70 [facility] Comment on above: Performed By: #### 5 7021-8 ####BHANU Treviño (45018)[facility] ([facility])[address] [place] [address] 06826 Immature granulocytes/100 WBC (Bld) 0.3 % Normal 0.0-0.9 [facility] Comment on above: Result Comment: Christine ture Granulocyte Count (IG) includes promyelocytes, myelocytes and metamyelocytes but does not include bands. Percent differential counts (%) should be interpreted in the context of the absolute cell counts (cells/UL). Performed By: #### 5 7021-8 ####BHANU Treviño (65647)[facility] ([facility])[address]42 [place] [address] Lymphocytes (Bld) [#/Vol] 1.09 x10*3/uL Low 1.20-4.80 [facility] Comment on above: Performed By: #### 5 7021-8 ####BHANU Treviño (93713)[facility] ([facility])[address] [place] [address] 03501 Lymphocytes/100 WBC (Bld) 15.4 % Normal 13.0-44.0 [facility] Comment on above: Performed By: #### 5 7021-8 ####BHANU Treviño (17534)[facility] ([facility])[address]36 [place] [address] MCH (RBC) [Entitic mass] 24.1 pg Low 26.0-34.0 [facility] Comment on above: Performed By: #### 5 7021-8 ####BHANU Treviño (95605)[facility] ([facility])11023 [place] [address] MCHC (RBC) [Mass/Vol] 31.6 g/dL Low 32.0-36.0 [facility] Comment on above: Performed By: #### 5 7021-8 ####BHANU Treviño (55129)[facility] ([facility])97959 [place] [address] MCV (RBC) [Entitic vol] 76 fL Low 80-100 [facility] Comment on above: Performed By: #### 5 7021-8 ####BHANU Treviño (75035)[facility] ([facility])78033 [place] [address] Monocytes (Bld) [#/Vol] 0.89 x10*3/uL Normal 0.10-1.00 [facility] Comment on above: Performed By: #### 5 7021-8 ####BHANU GREGORY L (95602)[facility] ([facility])68689 [place] [address] Monocytes/100 WBC (Bld) 12.6 % Normal 2.0-10.0 [facility] Comment on above: Performed By: #### 5 7021-8 ####BHANU GREGORY L (58149)[facility] ([facility])54296 [place] [address] Neutrophils (Bld) [#/Vol] 4.87 x10*3/uL Normal 1.20-7.70 [facility] Comment on above: Result Comment: Perc ent differential counts (%) should be interpreted in the context of the absolute cell counts (cells/uL). Performed By: #### 5 7021-8 ####BHANU GREGORY L (69581)[facility] ([facility])16026 [place] [address] Neutrophils/100 WBC (Bld) 69.0 % Normal 40.0-80.0 [facility] Comment on above: Performed By: #### 5 7021-8 ####BHANU Treviño (07484)[facility] ([facility])17530 [place] [address] Nucleated RBC/100 WBC (Bld) [Ratio] 0.0 /100 WBCs Normal 0.0-0.0 [facility] Comment on above: Performed By: #### 5 7021-8 ####BHANU GREGORY L (97965)[facility] ([facility])36853 [place] [address] Platelets (Bld) [#/Vol] 492 x10*3/uL High 150-450 [facility] Comment on above: Performed By: #### 5 7021-8 ####BHANU GREGORY L (25525)[facility] ([facility])21507 [place] [address] RBC (Bld) [#/Vol] 3.45 x10*6/uL Low 4.50-5.90 [facility] Comment on above: Performed By: #### 5 7021-8 ####BHANU Treviño (76420)[facility] ([facility])90396 [place] [address] WBC (Bld) [#/Vol] 7.1 x10*3/uL Normal 4.4-11.3 [facility] Comment on above: Performed By: #### 5 7021-8 ####BHANU Treviño (42333)[facility] ([facility])[address]77 [place] [address] Comprehensive metabolic 2000 panelon 01-30-2025 Albumin BCP dye [Mass/Vol] 2.3 g/dL Low 3.4-5.0 [facility] Comment on above: Performed By: #### 2 4323-8 ####BHANU Treviño (66291)[facility] ([facility])[address]107 [place] [address] ALP [Catalytic activity/Vol] 80 U/L Normal 33-120 [facility] Comment on above: Performed By: #### 2 4323-8 ####BHANU Treviño (73296)[facility] ([facility])[address]47 [place] [address] ALT With P-5'-P [Catalytic activity/Vol] 29 U/L Normal 10-52 [facility] Comment on above: Result Comment: Sydni ents treated with Sulfasalazine may generate falsely decreased results for ALT. Performed By: #### 2 4323-8 ####BHANU Treviño (38882)[facility] ([facility])[address]35 [place] [address] Anion gap [Moles/Vol] 13 mmol/L Normal 10-20 [facility] Comment on above: Performed By: #### 2 4323-8 ####BHANU Treviño (08898)[facility] ([facility])[address]491 [place] [address] AST With P-5'-P [Catalytic activity/Vol] 33 U/L Normal 9-39 [facility] Comment on above: Performed By: #### 2 4323-8 ####BHANU Treviño (35410)[facility] ([facility])43999 [place] [address] Bilirubin [Mass/Vol] 0.4 mg/dL Normal 0.0-1.2 [facility] Comment on above: Performed By: #### 2 4323-8 ####BHANU Treviño (44386)[facility] ([facility])60770 [place] [address] Calcium [Mass/Vol] 8.4 mg/dL Low 8.6-10.6 [facility] Comment on above: Performed By: #### 2 4323-8 ####BHANU Treviño (34965)[facility] ([facility])[address]88 [place] [address] Chloride [Moles/Vol] 102 mmol/L Normal 98-107 [facility] Comment on above: Performed By: #### 2 4323-8 ####BHANU Treviño (76580)[facility] ([facility])[address]415 [place] [address] CO2 [Moles/Vol] 29 mmol/L Normal 21-32 [facility] Comment on above: Performed By: #### 2 4323-8 ####BHANU Treviño (57734)[facility] ([facility])14835 [place] [address] Creatinine [Mass/Vol] 1.06 mg/dL Normal 0.50-1.30 [facility] Comment on above: Performed By: #### 2 4323-8 ####BHANU Treviño (25754)[facility] ([facility])17894 [place] [address] Glomerular filtration rate/1.73 sq M.predicted 85 mL/min/1.73m*2 Normal >60 [facility] Comment on above: Result Comment: Calc ulations of estimated GFR are performed using the 2020 CKD-EPI Study Refit equation without the race variable for the IDMS-Traceable creatinine methods.https://jasn.asnjournals.org/content/ /ASN.3069331369 Performed By: #### 2 4323-8 ####BHANU Treviño (85843)[facility] ([facility])[address]55 [place] [address] Glucose [Mass/Vol] 91 mg/dL Normal 74-99 [facility] Comment on above: Performed By: #### 2 4323-8 ####BHANU Treviño (99585)[facility] ([facility])10955 [place] [address] Potassium [Moles/Vol] 4.5 mmol/L Normal 3.5-5.3 [facility] Comment on above: Performed By: #### 2 4323-8 ####BHANU Treviño (50364)[facility] ([facility])[address]40 [place] [address] Protein [Mass/Vol] 6.1 g/dL Low 6.4-8.2 [facility] Comment on above: Performed By: #### 2 4323-8 ####BHANU Treviño (86144)[facility] ([facility])[address]3533 [place] [address] Sodium [Moles/Vol] 139 mmol/L Normal 136-145 [facility] Comment on above: Performed By: #### 2 4323-8 ####BHANU Treviño (47040)[facility] ([facility])[address]34 [place] [address] Urea nitrogen [Mass/Vol] 11 mg/dL Normal 6-23 [facility] Comment on above: Performed By: #### 2 4323-8 ####BHANU Treviño (85868)[facility] ([facility])[address] [place] [address] 22902 Fungus identifiedon 01-31-20 Fungus identified Cx Nom (Unsp spec) Abnormal [facility] Comment on above: Performed By: #### 5 80-1 ####BHANU Treviño (59525)[facility] ([facility])[address] [place] [address] 36677 Fungus identified Cx Nom (Unsp spec) Abnormal [facility] Comment on above: Performed By: #### 5 80-1 ####BHANU Treviño (03581)[facility] ([facility])[address] [place] [address] 90681 Glucose Test strip manual (B ld) [Mass/Vol]on 01-30-2025 Glucose [Mass/Vol] 129 mg/dL High 74-99 [facility] Comment on above: Performed By: #### 2 341-6 ####BHANU Treviño (31136)[facility] ([facility])[address] [place] [address] 53351 Magnesiumon 01-30-2025 Magnesium [Mass/Vol] 2.05 mg/dL Normal 1.60-2.40 [facility] Comment on above: Performed By: #### 1 9123-9 ####BHANU Treviño ([id number])[facility] ([facility])[address] [place] [id number] Surgical pathology studyon 0 01-30-[address] 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 Comment on above: Performed By: #### 3 4532-2 ####BHANU Treviño ([id number])[facility] ([facility])[address] [place] [address] D Ag Ql (Bld) Positive [facility] Comment on above: Performed By: #### 3 4532-2 ####BHANU Treviño ([id number])[facility] ([facility])[address] [place] [address] CBC W Auto Differential pane l (Bld)on 01-29-2025 Basophils (Bld) [#/Vol] 0.07 x10*3/uL Normal 0.00-0.10 [facility] Comment on above: Performed By: #### 5 7021-8 ####BHANU Treviño ([id number])[facility] ([facility])[address] [place] [address] Basophils/100 WBC (Bld) 0.9 % Normal 0.0-2.0 [facility] Comment on above: Performed By: #### 5 7021-8 ####BHANU Treviño ([id number])[facility] ([facility])[id number] [place] [address] Eosinophils (Bld) [#/Vol] 0.16 x10*3/uL Normal 0.00-0.70 [facility] Comment on above: Performed By: #### 5 7021-8 ####BHANU Treviño ([id number])[facility] ([facility])[address]88 [place] [address] Eosinophils/100 WBC (Bld) 2.0 % Normal 0.0-6.0 [facility] Comment on above: Performed By: #### 5 7021-8 ####BHANU Treviño ([id number])[facility] ([facility])[address] [place] [address] Erythrocyte distribution width (RBC) [Ratio] 20.0 % High 11.5-14.5 [facility] Comment on above: Performed By: #### 5 7021-8 ####BHANU Treviño (89230)[facility] ([facility])[address] [place] [address]251 Hematocrit (Bld) [Volume fraction] 29.4 % Low 41.0-52.0 [facility] Comment on above: Performed By: #### 5 7021-8 ####BHANU GREGORY L (59146)[facility] ([facility])[address] [place] [address] Hemoglobin (Bld) [Mass/Vol] 8.8 g/dL Low 13.5-17.5 [facility] Comment on above: Performed By: #### 5 7021-8 ####BHANU Treviño ([id number])[facility] ([facility])[address] [place] [address] 85657 Immature granulocytes (Bld) [#/Vol] 0.03 x10*3/uL Normal 0.00-0.70 [facility] Comment on above: Performed By: #### 5 7021-8 ####BHANU Treviño (81904)[facility] ([facility])[address] [place] [address] 36190 Immature granulocytes/100 WBC (Bld) 0.4 % Normal 0.0-0.9 [facility] Comment on above: Result Comment: Christine ture Granulocyte Count (IG) includes promyelocytes, myelocytes and metamyelocytes but does not include bands. Percent differential counts (%) should be interpreted in the context of the absolute cell counts (cells/UL). Performed By: #### 5 7021-8 ####BHANU Treviño ([id number])[facility] ([facility])[address] [place] [address] 44975 Lymphocytes (Bld) [#/Vol] 1.25 x10*3/uL Normal 1.20-4.80 [facility] Comment on above: Performed By: #### 5 7021-8 ####BHANU Treviño (85617)[facility] ([facility])[address] [place] [address] Lymphocytes/100 WBC (Bld) 15.7 % Normal 13.0-44.0 [facility] Comment on above: Performed By: #### 5 7021-8 ####BHANU Treviño (07811)[facility] ([facility])[address] [place] [address] MCH (RBC) [Entitic mass] 23.7 pg Low 26.0-34.0 [facility] Comment on above: Performed By: #### 5 7021-8 ####BHANU Treviño (14018)[facility] ([facility])[address] [place] [address] MCHC (RBC) [Mass/Vol] 29.9 g/dL Low 32.0-36.0 [facility] Comment on above: Performed By: #### 5 7021-8 ####BHANU Treviño (19289)[facility] ([facility])[address] [place] [address] MCV (RBC) [Entitic vol] 79 fL Low 80-100 [facility] Comment on above: Performed By: #### 5 7021-8 ####BHANU Treviño (66541)[facility] ([facility])[address] [place] [address] 23304 Monocytes (Bld) [#/Vol] 0.98 x10*3/uL Normal 0.10-1.00 [facility] Comment on above: Performed By: #### 5 7021-8 ####BHANU Treviño (35474)[facility] ([facility])[address]75 [place] [address] Monocytes/100 WBC (Bld) 12.3 % Normal 2.0-10.0 [facility] Comment on above: Performed By: #### 5 7021-8 ####BHANU Treviño (80330)[facility] ([facility])[address]91 [place] [address] Neutrophils (Bld) [#/Vol] 5.45 x10*3/uL Normal 1.20-7.70 [facility] Comment on above: Result Comment: Perc ent differential counts (%) should be interpreted in the context of the absolute cell counts (cells/uL). Performed By: #### 5 7021-8 ####BHANU Treviño ([id number])[facility] ([facility])[address]89 [place] [address] Neutrophils/100 WBC (Bld) 68.7 % Normal 40.0-80.0 [facility] Comment on above: Performed By: #### 5 7021-8 ####BHANU Treviño (35961)[facility] ([facility])[address]442 [place] [address] Nucleated RBC/100 WBC (Bld) [Ratio] 0.0 /100 WBCs Normal 0.0-0.0 [facility] Comment on above: Performed By: #### 5 7021-8 ####BHANU GREGORY L (70032)[facility] ([facility])[address]407 [place] [address] Platelets (Bld) [#/Vol] 537 x10*3/uL High 150-450 [facility] Comment on above: Performed By: #### 5 7021-8 ####BHANU Treviño (11353)[facility] ([facility])[address]91 [place] [address] RBC (Bld) [#/Vol] 3.72 x10*6/uL Low 4.50-5.90 [facility] Comment on above: Performed By: #### 5 7021-8 ####BHANU GREGORY L (84181)[facility] ([facility])[address]65 [place] [address] WBC (Bld) [#/Vol] 7.9 x10*3/uL Normal 4.4-11.3 [facility] Comment on above: Performed By: #### 5 7021-8 ####BHANU GREGORY L (76119)[facility] ([facility])[address]16 [place] [address] Comprehensive metabolic 2000 panelon 01-29-2025 Albumin BCP dye [Mass/Vol] 2.4 g/dL Low 3.4-5.0 [facility] Comment on above: Performed By: #### 2 4323-8 ####BHANU Treviño (50836)[facility] ([facility])[address]28 [place] [address] ALP [Catalytic activity/Vol] 70 U/L Normal 33-120 [facility] Comment on above: Performed By: #### 2 4323-8 ####BHANU Treviño (22352)[facility] ([facility])[address]605 [place] [address] ALT With P-5'-P [Catalytic activity/Vol] 28 U/L Normal 10-52 [facility] Comment on above: Result Comment: Sydni ents treated with Sulfasalazine may generate falsely decreased results for ALT. Performed By: #### 2 4323-8 ####BHANU Treviño (38873)[facility] ([facility])[address]268 [place] [address] Anion gap [Moles/Vol] 11 mmol/L Normal 10-20 [facility] Comment on above: Performed By: #### 2 4323-8 ####BHANU Treviño (25180)[facility] ([facility])[address]41 [place] [address] AST With P-5'-P [Catalytic activity/Vol] 28 U/L Normal 9-39 [facility] Comment on above: Performed By: #### 2 4323-8 ####BHANU Treviño (36024)[facility] ([facility])[address]182 [place] [address] Bilirubin [Mass/Vol] 0.3 mg/dL Normal 0.0-1.2 [facility] Comment on above: Performed By: #### 2 4323-8 ####BHANU Treviño (23459)[facility] ([facility])[address]136 [place] [address] Calcium [Mass/Vol] 8.2 mg/dL Low 8.6-10.6 [facility] Comment on above: Performed By: #### 2 4323-8 ####BHANU GREGORY L (40011)[facility] ([facility])[address]676 [place] [address] Chloride [Moles/Vol] 102 mmol/L Normal 98-107 [facility] Comment on above: Performed By: #### 2 4323-8 ####BHANU FLEMINGMOTZER L (86671)[facility] ([facility])[address]954 [place] [address] CO2 [Moles/Vol] 28 mmol/L Normal 21-32 [facility] Comment on above: Performed By: #### 2 4323-8 ####BHANU GREGORY L (43803)[facility] ([facility])[address]39 [place] [address] Creatinine [Mass/Vol] 1.07 mg/dL Normal 0.50-1.30 [facility] Comment on above: Performed By: #### 2 4323-8 ####BHANU GREGORY L (48480)[facility] ([facility])[address]24 [place] [address] Glomerular filtration rate/1.73 sq M.predicted 84 mL/min/1.73m*2 Normal >60 [facility] Comment on above: Result Comment: Calc ulations of estimated GFR are performed using the 2020 CKD-EPI Study Refit equation without the race variable for the IDMS-Traceable creatinine methods.https://jasn.asnjournals.org/content/ /ASN.0607523061 Performed By: #### 2 4323-8 ####BHANU LAUREANOTZALANNA L (61494)[facility] ([facility])[address]73 [place] [address] Glucose [Mass/Vol] 99 mg/dL Normal 74-99 [facility] Comment on above: Performed By: #### 2 4323-8 ####BHANU Treviño (18242)[facility] ([facility])[address]293 [place] [address] Potassium [Moles/Vol] 4.2 mmol/L Normal 3.5-5.3 [facility] Comment on above: Performed By: #### 2 4323-8 ####BHANU Treviño (14924)[facility] ([facility])[address] [place] [address]843 Protein [Mass/Vol] 6.4 g/dL Normal 6.4-8.2 [facility] Comment on above: Performed By: #### 2 4323-8 ####BHANU Treviño (49782)[facility] ([facility])[address]78 [place] [address] Sodium [Moles/Vol] 137 mmol/L Normal 136-145 [facility] Comment on above: Performed By: #### 2 4323-8 ####BHANU Treviño (94089)[facility] ([facility])[address]77 [place] [address] Urea nitrogen [Mass/Vol] 12 mg/dL Normal 6-23 [facility] Comment on above: Performed By: #### 2 4323-8 ####BHANU Treviño (96386)[facility] ([facility])64962 [place] [address] Creatine kinaseon 01-29-2025 CK [Catalytic activity/Vol] 58 U/L Normal 0-325 [facility] Comment on above: Performed By: #### 2 157-6 ####BHANU Treviño (41646)[facility] ([facility])[address]40 [place] [address] Magnesiumon 01-29-2025 Magnesium [Mass/Vol] 1.81 mg/dL Normal 1.60-2.40 [facility] Comment on above: Performed By: #### 1 9123-9 ####BHANU Treviño (57812)[facility] ([facility])[address]28 [place] [address] CBC W Auto Differential pane l (Bld)on 01-28-2025 Basophils (Bld) [#/Vol] 0.07 x10*3/uL Normal 0.00-0.10 [facility] Comment on above: Performed By: #### 5 7021-8 ####BHANU Treviño (87236)[facility] ([facility])[address]71 [place] [address] Basophils/100 WBC (Bld) 1.0 % Normal 0.0-2.0 [facility] Comment on above: Performed By: #### 5 7021-8 ####BHANU Treviño (32697)[facility] ([facility])[address] [place] [address]151 Eosinophils (Bld) [#/Vol] 0.44 x10*3/uL Normal 0.00-0.70 [facility] Comment on above: Performed By: #### 5 7021-8 ####BHANU Treviño (59969)[facility] ([facility])[address]42 [place] [address] Eosinophils/100 WBC (Bld) 6.0 % Normal 0.0-6.0 [facility] Comment on above: Performed By: #### 5 7021-8 ####BHANU Treviño (75447)[facility] ([facility])48586 [place] [address] Erythrocyte distribution width (RBC) [Ratio] 19.7 % High 11.5-14.5 [facility] Comment on above: Performed By: #### 5 7021-8 ####BHANU Treviño (94940)[facility] ([facility])[address]597 [place] [address] Hematocrit (Bld) [Volume fraction] 26.4 % Low 41.0-52.0 [facility] Comment on above: Performed By: #### 5 7021-8 ####BHANU Treviño (08841)[facility] ([facility])27596 [place] [address] Hemoglobin (Bld) [Mass/Vol] 8.5 g/dL Low 13.5-17.5 [facility] Comment on above: Performed By: #### 5 7021-8 ####BHANU Treviño (51238)[facility] ([facility])[address]16 [place] [address] Immature granulocytes (Bld) [#/Vol] 0.04 x10*3/uL Normal 0.00-0.70 [facility] Comment on above: Performed By: #### 5 7021-8 ####BHANU Treviño (56772)[facility] ([facility])40252 [place] [address] Immature granulocytes/100 WBC (Bld) 0.5 % Normal 0.0-0.9 [facility] Comment on above: Result Comment: Christine ture Granulocyte Count (IG) includes promyelocytes, myelocytes and metamyelocytes but does not include bands. Percent differential counts (%) should be interpreted in the context of the absolute cell counts (cells/UL). Performed By: #### 5 7021-8 ####BHANU Treviño (83990)[facility] ([facility])[address]11 [place] [address] Lymphocytes (Bld) [#/Vol] 1.21 x10*3/uL Normal 1.20-4.80 [facility] Comment on above: Performed By: #### 5 7021-8 ####BHANU Treviño (89577)[facility] ([facility])[address]58 [place] [address] Lymphocytes/100 WBC (Bld) 16.4 % Normal 13.0-44.0 [facility] Comment on above: Performed By: #### 5 7021-8 ####BHANU Treviño (95278)[facility] ([facility])22466 [place] [address] MCH (RBC) [Entitic mass] 24.6 pg Low 26.0-34.0 [facility] Comment on above: Performed By: #### 5 7021-8 ####BHANU Treviño (52932)[facility] ([facility])[address]77 [place] [address] MCHC (RBC) [Mass/Vol] 32.2 g/dL Normal 32.0-36.0 [facility] Comment on above: Performed By: #### 5 7021-8 ####BHANU Treviño (41169)[facility] ([facility])75245 [place] [address] MCV (RBC) [Entitic vol] 77 fL Low 80-100 [facility] Comment on above: Performed By: #### 5 7021-8 ####BHANU Treviño (64154)[facility] ([facility])[address] [place] [address] Monocytes (Bld) [#/Vol] 1.09 x10*3/uL High 0.10-1.00 [facility] Comment on above: Performed By: #### 5 7021-8 ####BHANU Treviño (53367)[facility] ([facility])[address]70 [place] [address] Monocytes/100 WBC (Bld) 14.8 % Normal 2.0-10.0 [facility] Comment on above: Performed By: #### 5 7021-8 ####BHANU Treviño (46712)[facility] ([facility])[address] [place] [address] 91468 Neutrophils (Bld) [#/Vol] 4.51 x10*3/uL Normal 1.20-7.70 [facility] Comment on above: Result Comment: Perc ent differential counts (%) should be interpreted in the context of the absolute cell counts (cells/uL). Performed By: #### 5 7021-8 ####BHANU Treviño ([id number])[facility] ([facility])23274 [place] [address] Neutrophils/100 WBC (Bld) 61.3 % Normal 40.0-80.0 [facility] Comment on above: Performed By: #### 5 7021-8 ####BHANU Treviño (00181)[facility] ([facility])[address] [place] [address]94[address] Nucleated RBC/100 WBC (Bld) [Ratio] 0.0 /100 WBCs Normal 0.0-0.0 [facility] Comment on above: Performed By: #### 5 7021-8 ####BHANU Treviño (96192)[facility] ([facility])[address] [place] [address]1834 Platelets (Bld) [#/Vol] 620 x10*3/uL High 150-450 [facility] Comment on above: Performed By: #### 5 7021-8 ####BHANU Treviño (65447)[facility] ([facility])[address] [place] [address] 65922 RBC (Bld) [#/Vol] 3.45 x10*6/uL Low 4.50-5.90 [facility] Comment on above: Performed By: #### 5 7021-8 ####BHANU Treviño (26436)[facility] ([facility])[address] [place] [address]7311 WBC (Bld) [#/Vol] 7.4 x10*3/uL Normal 4.4-11.3 [facility] Comment on above: Performed By: #### 5 7021-8 ####BHANU Treviño (76492)[facility] ([facility])[address] [place] [address] 27225 Comprehensive metabolic 2000 panelon 01-28-2025 Albumin BCP dye [Mass/Vol] 2.3 g/dL Low 3.4-5.0 [facility] Comment on above: Performed By: #### 2 4323-8 ####BHANU Treviño (95359)[facility] ([facility])[address] [place] [address] 76189 ALP [Catalytic activity/Vol] 72 U/L Normal 33-120 [facility] Comment on above: Performed By: #### 2 4323-8 ####BHANU Treviño (24073)[facility] ([facility])[address]12 [place] [address] ALT With P-5'-P [Catalytic activity/Vol] 35 U/L Normal 10-52 [facility] Comment on above: Result Comment: Sydni ents treated with Sulfasalazine may generate falsely decreased results for ALT. Performed By: #### 2 4323-8 ####BHANU Treviño (17239)[facility] ([facility])[address]86 [place] [address] Anion gap [Moles/Vol] 13 mmol/L Normal 10-20 [facility] Comment on above: Performed By: #### 2 4323-8 ####BHANU Treviño (14405)[facility] ([facility])35543 [place] [address] AST With P-5'-P [Catalytic activity/Vol] 32 U/L Normal 9-39 [facility] Comment on above: Performed By: #### 2 4323-8 ####BHANU Treviño (59839)[facility] ([facility])[address]2440 [place] [address] Bilirubin [Mass/Vol] 0.3 mg/dL Normal 0.0-1.2 [facility] Comment on above: Performed By: #### 2 4323-8 ####BHANU Treviño (37720)[facility] ([facility])76694 [place] [address] Calcium [Mass/Vol] 8.0 mg/dL Low 8.6-10.6 [facility] Comment on above: Performed By: #### 2 4323-8 ####BHANU Treviño (58158)[facility] ([facility])[address]21 [place] [address] Chloride [Moles/Vol] 102 mmol/L Normal 98-107 [facility] Comment on above: Performed By: #### 2 4323-8 ####BHANU Treviño (70794)[facility] ([facility])36124 [place] [address] CO2 [Moles/Vol] 28 mmol/L Normal 21-32 [facility] Comment on above: Performed By: #### 2 4323-8 ####BHANU Treviño (99259)[facility] ([facility])62719 [place] [address] Creatinine [Mass/Vol] 1.07 mg/dL Normal 0.50-1.30 [facility] Comment on above: Performed By: #### 2 4323-8 ####BHANU Treviño (86027)[facility] ([facility])[address]199 [place] [address] Glomerular filtration rate/1.73 sq M.predicted 84 mL/min/1.73m*2 Normal >60 [facility] Comment on above: Result Comment: Calc ulations of estimated GFR are performed using the 2020 CKD-EPI Study Refit equation without the race variable for the IDMS-Traceable creatinine methods.https://jasn.asnjournals.org/content/early/ /ASN.0344736917 Performed By: #### 2 4323-8 ####BHANU Treviño (19310)[facility] ([facility])[address]38 [place] [address] Glucose [Mass/Vol] 113 mg/dL High 74-99 [facility] Comment on above: Performed By: #### 2 4323-8 ####BHANU Treviño (10312)[facility] ([facility])66542 [place] [address] Potassium [Moles/Vol] 4.5 mmol/L Normal 3.5-5.3 [facility] Comment on above: Performed By: #### 2 4323-8 ####BHANU Treviño (18557)[facility] ([facility])95163 [place] [address] Protein [Mass/Vol] 6.0 g/dL Low 6.4-8.2 [facility] Comment on above: Performed By: #### 2 4323-8 ####BHANU Treviño (11624)[facility] ([facility])97140 [place] [address] Sodium [Moles/Vol] 138 mmol/L Normal 136-145 [facility] Comment on above: Performed By: #### 2 4323-8 ####BHANU Treviño (46404)[facility] ([facility])[address] [place] [address] 37983 Urea nitrogen [Mass/Vol] 11 mg/dL Normal 6-23 [facility] Comment on above: Performed By: #### 2 4323-8 ####BHANU Treviño (89225)[facility] ([facility])[address] [place] [address] 32725 Lactateon 01-28-2025 Lactate [Moles/Vol] 1.4 mmol/L Normal 0.4-2.0 [facility] Comment on above: Order Comment: Venip uncture immediately after or during the administration of Metamizole may lead to falsely low results. Testing should be performed immediately prior to Metamizole dosing. Performed By: #### 2 524-7 ####BHANU Treviño (13419)[facility] ([facility])[address] [place] [address] Magnesiumon 01-28-2025 Magnesium [Mass/Vol] 1.92 mg/dL Normal 1.60-2.40 [facility] Comment on above: Performed By: #### 1 9123-9 ####BHAUN Treviño (88865)[facility] ([facility])[address] [place] [address]88[address] Blood type and Indirect anti body screen panel (Bld)on 01-27-2025 ABO group Nom (Bld) A Normal [facility] Comment on above: Performed By: #### 3 4532-2 ####BHANU Treviño (44951)[facility] ([facility])[address] [place] [address] Blood group antibody screen Ql Negative [facility] Comment on above: Performed By: #### 3 4532-2 ####BHANU GREGORY L (37476)[facility] ([facility])[address]82 [place] [address] D Ag Ql (Bld) Positive [facility] Comment on above: Performed By: #### 3 4532-2 ####BHANU Treviño (92146)[facility] ([facility])[address]229 [place] [address] CBC W Auto Differential pane l (Bld)on 01-27-2025 Basophils (Bld) [#/Vol] 0.08 x10*3/uL Normal 0.00-0.10 [facility] Comment on above: Performed By: #### 5 7021-8 ####BHANU GREGORY L (13510)[facility] ([facility])[address]303 [place] [address] Basophils/100 WBC (Bld) 1.1 % Normal 0.0-2.0 [facility] Comment on above: Performed By: #### 5 7021-8 ####BHANU GREGORY L (66449)[facility] ([facility])[address]855 [place] [address] Eosinophils (Bld) [#/Vol] 0.07 x10*3/uL Normal 0.00-0.70 [facility] Comment on above: Performed By: #### 5 7021-8 ####BHANU GREGORY L (54190)[facility] ([facility])[address]177 [place] [address] Eosinophils/100 WBC (Bld) 0.9 % Normal 0.0-6.0 [facility] Comment on above: Performed By: #### 5 7021-8 ####BHANU GREGORY L (59249)[facility] ([facility])[address]227 [place] [address] Erythrocyte distribution width (RBC) [Ratio] 19.8 % High 11.5-14.5 [facility] Comment on above: Performed By: #### 5 7021-8 ####BHANU Treviño (60968)[facility] ([facility])44346 [place] [address] Hematocrit (Bld) [Volume fraction] 27.5 % Low 41.0-52.0 [facility] Comment on above: Performed By: #### 5 7021-8 ####BHANU Treviño (89656)[facility] ([facility])[address] [place] [address]3450 Hemoglobin (Bld) [Mass/Vol] 8.5 g/dL Low 13.5-17.5 [facility] Comment on above: Performed By: #### 5 7021-8 ####BHANU Treviño ([id number])[facility] ([facility])[id number] [place] [id number] Immature granulocytes (Bld) [#/Vol] 0.03 x10*3/uL Normal 0.00-0.70 [facility] Comment on above: Performed By: #### 5 7021-8 ####BHANU Treviño ([id number])[facility] ([facility])[id number] [place] [address] Immature granulocytes/100 WBC (Bld) 0.4 % Normal 0.0-0.9 [facility] Comment on above: Result Comment: Christine ture Granulocyte Count (IG) includes promyelocytes, myelocytes and metamyelocytes but does not include bands. Percent differential counts (%) should be interpreted in the context of the absolute cell counts (cells/UL). Performed By: #### 5 7021-8 ####BHANU Treviño ([id number])[facility] ([facility])[address] [place] [address] Lymphocytes (Bld) [#/Vol] 1.18 x10*3/uL Low 1.20-4.80 [facility] Comment on above: Performed By: #### 5 7021-8 ####BHNAU Treviño ([id number])[facility] ([facility])[id number] [place] [address] Lymphocytes/100 WBC (Bld) 15.7 % Normal 13.0-44.0 [facility] Comment on above: Performed By: #### 5 7021-8 ####BHANU Treviño ([id number])[facility] ([facility])[id number] [place] [address] 67514 MCH (RBC) [Entitic mass] 23.9 pg Low 26.0-34.0 [facility] Comment on above: Performed By: #### 5 7021-8 ####BHANU Treviño (97039)[facility] ([facility])[address] [place] [address] 14899 MCHC (RBC) [Mass/Vol] 30.9 g/dL Low 32.0-36.0 [facility] Comment on above: Performed By: #### 5 7021-8 ####BHANU Treviño (05218)[facility] ([facility])[address] [place] [address] 63778 MCV (RBC) [Entitic vol] 78 fL Low 80-100 [facility] Comment on above: Performed By: #### 5 7021-8 ####BHANU Treviño (60559)[facility] ([facility])[id number] [place] [address] 57882 Monocytes (Bld) [#/Vol] 1.05 x10*3/uL High 0.10-1.00 [facility] Comment on above: Performed By: #### 5 7021-8 ####BHANU Treviño (81562)[facility] ([facility])[address] [place] [address] 22837 Monocytes/100 WBC (Bld) 14.0 % Normal 2.0-10.0 [facility] Comment on above: Performed By: #### 5 7021-8 ####BHANU Treviño (59773)[facility] ([facility])[address] [place] [address] Neutrophils (Bld) [#/Vol] 5.09 x10*3/uL Normal 1.20-7.70 [facility] Comment on above: Result Comment: Perc ent differential counts (%) should be interpreted in the context of the absolute cell counts (cells/uL). Performed By: #### 5 7021-8 ####BHANU Treviño (34056)[facility] ([facility])[address] [place] [address] Neutrophils/100 WBC (Bld) 67.9 % Normal 40.0-80.0 [facility] Comment on above: Performed By: #### 5 7021-8 ####BHANU Treviño (86560)[facility] ([facility])[address] [place] [address] Nucleated RBC/100 WBC (Bld) [Ratio] 0.0 /100 WBCs Normal 0.0-0.0 [facility] Comment on above: Performed By: #### 5 7021-8 ####BHANU Treviño (01502)[facility] ([facility])[address] [place] [address] Platelets (Bld) [#/Vol] 644 x10*3/uL High 150-450 [facility] Comment on above: Performed By: #### 5 7021-8 ####BHANU Treviño (25482)[facility] ([facility])[address] [place] [address] RBC (Bld) [#/Vol] 3.55 x10*6/uL Low 4.50-5.90 [facility] Comment on above: Performed By: #### 5 7021-8 ####BHANU Treviño (94101)[facility] ([facility])[address] [place] [address] WBC (Bld) [#/Vol] 7.5 x10*3/uL Normal 4.4-11.3 [facility] Comment on above: Performed By: #### 5 7021-8 ####BHANU Treviño (50204)[facility] ([facility])[address]141 [place] [address] Comprehensive metabolic 2000 panelon 01-27-2025 Albumin BCP dye [Mass/Vol] 2.3 g/dL Low 3.4-5.0 [facility] Comment on above: Performed By: #### 2 4323-8 ####BHANU Treviño (24091)[facility] ([facility])[address]222 [place] [address] ALP [Catalytic activity/Vol] 70 U/L Normal 33-120 [facility] Comment on above: Performed By: #### 2 4323-8 ####BHANU Treviño (51871)[facility] ([facility])[address] [place] [address] ALT With P-5'-P [Catalytic activity/Vol] 40 U/L Normal 10-52 [facility] Comment on above: Result Comment: Sydni ents treated with Sulfasalazine may generate falsely decreased results for ALT. Performed By: #### 2 4323-8 ####BHANU Treviño (69406)[facility] ([facility])[address] [place] [address] Anion gap [Moles/Vol] 11 mmol/L Normal 10-20 [facility] Comment on above: Performed By: #### 2 4323-8 ####BHANU Treviño (76851)[facility] ([facility])[address]45 [place] [address] AST With P-5'-P [Catalytic activity/Vol] 53 U/L High 9-39 [facility] Comment on above: Performed By: #### 2 4323-8 ####BHANU Treviño (79100)[facility] ([facility])[address]327 [place] [address] Bilirubin [Mass/Vol] 0.4 mg/dL Normal 0.0-1.2 [facility] Comment on above: Performed By: #### 2 4323-8 ####BHANU MATOSER L (17543)[facility] ([facility])[address]75 [place] [address] Calcium [Mass/Vol] 8.1 mg/dL Low 8.6-10.6 [facility] Comment on above: Performed By: #### 2 4323-8 ####BHANU FLEMINGMOTZER L (13227)[facility] ([facility])[address]348 [place] [address] Chloride [Moles/Vol] 101 mmol/L Normal 98-107 [facility] Comment on above: Performed By: #### 2 4323-8 ####BHANU FLEMINGMOTZER L (90469)[facility] ([facility])[address]42 [place] [address] CO2 [Moles/Vol] 29 mmol/L Normal 21-32 [facility] Comment on above: Performed By: #### 2 4323-8 ####BHANU GREGORY L (15276)[facility] ([facility])[address]304 [place] [address] Creatinine [Mass/Vol] 1.22 mg/dL Normal 0.50-1.30 [facility] Comment on above: Performed By: #### 2 4323-8 ####BHANU LAUREANOTZER L (51218)[facility] ([facility])[address]368 [place] [address] Glomerular filtration rate/1.73 sq M.predicted 72 mL/min/1.73m*2 Normal >60 [facility] Comment on above: Result Comment: Calc ulations of estimated GFR are performed using the 2020 CKD-EPI Study Refit equation without the race variable for the IDMS-Traceable creatinine methods.https://jasn.asnjournals.org/content/ /ASN.9468177704 Performed By: #### 2 4323-8 ####BHANU LAUREANOTZALANNA L (04028)[facility] ([facility])[address]268 [place] [address] Glucose [Mass/Vol] 86 mg/dL Normal 74-99 [facility] Comment on above: Performed By: #### 2 4323-8 ####BHANU Treviño (82781)[facility] ([facility])[address]271 [place] [address] Potassium [Moles/Vol] 4.1 mmol/L Normal 3.5-5.3 [facility] Comment on above: Performed By: #### 2 4323-8 ####BHANU Treviño (58795)[facility] ([facility])[address]896 [place] [address] Protein [Mass/Vol] 6.5 g/dL Normal 6.4-8.2 [facility] Comment on above: Performed By: #### 2 4323-8 ####BHANU Treviño (59412)[facility] ([facility])[address]28 [place] [address] Sodium [Moles/Vol] 137 mmol/L Normal 136-145 [facility] Comment on above: Performed By: #### 2 4323-8 ####BHANU Treviño (08141)[facility] ([facility])[address]773 [place] [address] Urea nitrogen [Mass/Vol] 8 mg/dL Normal 6-23 [facility] Comment on above: Performed By: #### 2 4323-8 ####BHANU Treviño (78306)[facility] ([facility])[address]259 [place] [address] Magnesiumon 01-27-2025 Magnesium [Mass/Vol] 1.92 mg/dL Normal 1.60-2.40 [facility] Comment on above: Performed By: #### 1 9123-9 ####BHANU Treviño (03709)[facility] ([facility])[address]20 [place] [address] CBC W Auto Differential pane l (Bld)on 01-26-2025 Basophils (Bld) [#/Vol] 0.07 x10*3/uL Normal 0.00-0.10 [facility] Comment on above: Performed By: #### 5 7021-8 ####BHANU Treviño (95855)[facility] ([facility])[address]87 [place] [address] Basophils/100 WBC (Bld) 0.8 % Normal 0.0-2.0 [facility] Comment on above: Performed By: #### 5 7021-8 ####BHANU Treviño (02278)[facility] ([facility])[address]38 [place] [address] Eosinophils (Bld) [#/Vol] 0.40 x10*3/uL Normal 0.00-0.70 [facility] Comment on above: Performed By: #### 5 7021-8 ####BHANU Treviño (63726)[facility] ([facility])[address] [place] [address] 35454 Eosinophils/100 WBC (Bld) 4.6 % Normal 0.0-6.0 [facility] Comment on above: Performed By: #### 5 7021-8 ####BHANU Treviño (25330)[facility] ([facility])[address] [place] [address] 10156 Erythrocyte distribution width (RBC) [Ratio] 19.9 % High 11.5-14.5 [facility] Comment on above: Performed By: #### 5 7021-8 ####BHANU Treviño (66692)[facility] ([facility])[address] [place] [address] 72147 Hematocrit (Bld) [Volume fraction] 28.3 % Low 41.0-52.0 [facility] Comment on above: Performed By: #### 5 7021-8 ####BHANU Treviño (88770)[facility] ([facility])[address]32 [place] [address] Hemoglobin (Bld) [Mass/Vol] 8.7 g/dL Low 13.5-17.5 [facility] Comment on above: Performed By: #### 5 7021-8 ####BHANU Treviño (84357)[facility] ([facility])[address]127 [place] [address] Immature granulocytes (Bld) [#/Vol] 0.04 x10*3/uL Normal 0.00-0.70 [facility] Comment on above: Performed By: #### 5 7021-8 ####BHANU Treviño (90454)[facility] ([facility])[address]317 [place] [address] Immature granulocytes/100 WBC (Bld) 0.5 % Normal 0.0-0.9 [facility] Comment on above: Result Comment: Christine ture Granulocyte Count (IG) includes promyelocytes, myelocytes and metamyelocytes but does not include bands. Percent differential counts (%) should be interpreted in the context of the absolute cell counts (cells/UL). Performed By: #### 5 7021-8 ####BHANU Treviño (22110)[facility] ([facility])[address]98 [place] [address] Lymphocytes (Bld) [#/Vol] 1.23 x10*3/uL Normal 1.20-4.80 [facility] Comment on above: Performed By: #### 5 7021-8 ####BHANU Treviño (63855)[facility] ([facility])[address]25 [place] [address] Lymphocytes/100 WBC (Bld) 14.1 % Normal 13.0-44.0 [facility] Comment on above: Performed By: #### 5 7021-8 ####BHANU Treviño (60575)[facility] ([facility])[address]34 [place] [address] MCH (RBC) [Entitic mass] 24.2 pg Low 26.0-34.0 [facility] Comment on above: Performed By: #### 5 7021-8 ####BHANU Treviño (24631)[facility] ([facility])44082 [place] [address] MCHC (RBC) [Mass/Vol] 30.7 g/dL Low 32.0-36.0 [facility] Comment on above: Performed By: #### 5 7021-8 ####BHANU Treviño (65271)[facility])22967 [place] [address] MCV (RBC) [Entitic vol] 79 fL Low 80-100 [facility] Comment on above: Performed By: #### 5 7021-8 ####BHANU Treviño (59163)[facility] ([facility])[address]907 [place] [address] Monocytes (Bld) [#/Vol] 1.06 x10*3/uL High 0.10-1.00 [facility] Comment on above: Performed By: #### 5 7021-8 ####BHANU Treviño (20540)[facility] ([facility])[address]32 [place] [address] Monocytes/100 WBC (Bld) 12.2 % Normal 2.0-10.0 [facility] Comment on above: Performed By: #### 5 7021-8 ####BHANU Treviño (76587)[facility] ([facility])[address]25 [place] [address] Neutrophils (Bld) [#/Vol] 5.92 x10*3/uL Normal 1.20-7.70 [facility] Comment on above: Result Comment: Perc ent differential counts (%) should be interpreted in the context of the absolute cell counts (cells/uL). Performed By: #### 5 7021-8 ####BHANU Treviño (65587)[facility] ([facility])[address]165 [place] [address] Neutrophils/100 WBC (Bld) 67.8 % Normal 40.0-80.0 [facility] Comment on above: Performed By: #### 5 7021-8 ####BHANU Treviño (69660)[facility] ([facility])[address]15 [place] [address] Nucleated RBC/100 WBC (Bld) [Ratio] 0.0 /100 WBCs Normal 0.0-0.0 [facility] Comment on above: Performed By: #### 5 7021-8 ####BHANU Treviño (95585)[facility] ([facility])[address]34 [place] [address] Platelets (Bld) [#/Vol] 713 x10*3/uL High 150-450 [facility] Comment on above: Performed By: #### 5 7021-8 ####BHANU Treviño (05630)[facility] ([facility])[address] [place] [address] 31805 RBC (Bld) [#/Vol] 3.60 x10*6/uL Low 4.50-5.90 [facility] Comment on above: Performed By: #### 5 7021-8 ####BHANU Treviño (12906)[facility] ([facility])[address] [place] [address] 58563 WBC (Bld) [#/Vol] 8.7 x10*3/uL Normal 4.4-11.3 [facility] Comment on above: Performed By: #### 5 7021-8 ####BHANU Treviño (55374)[facility] ([facility])[address] [place] [address] 45037 Comprehensive metabolic 2000 panelon 01-26-2025 Albumin BCP dye [Mass/Vol] 2.4 g/dL Low 3.4-5.0 [facility] Comment on above: Performed By: #### 2 4323-8 ####BHANU Treviño (19911)[facility] ([facility])25819 [place] [address] ALP [Catalytic activity/Vol] 74 U/L Normal 33-120 [facility] Comment on above: Performed By: #### 2 4323-8 ####BHANU Treviño (44049)[facility] ([facility])[address] [place] [address] ALT With P-5'-P [Catalytic activity/Vol] 38 U/L Normal 10-52 [facility] Comment on above: Result Comment: Sydni ents treated with Sulfasalazine may generate falsely decreased results for ALT. Performed By: #### 2 4323-8 ####BHANU GREGORY L (53922)[facility] ([facility])[address]657 [place] [address] Anion gap [Moles/Vol] 12 mmol/L Normal 10-20 [facility] Comment on above: Performed By: #### 2 4323-8 ####BHANU Treviño (96675)[facility] ([facility])26058 [place] [address] AST With P-5'-P [Catalytic activity/Vol] 55 U/L High 9-39 [facility] Comment on above: Performed By: #### 2 4323-8 ####BHANU Treviño (87368)[facility] ([facility])25106 [place] [address] Bilirubin [Mass/Vol] 0.3 mg/dL Normal 0.0-1.2 [facility] Comment on above: Performed By: #### 2 4323-8 ####BHANU Treviño (99605)[facility] ([facility])21351 [place] [address] Calcium [Mass/Vol] 8.3 mg/dL Low 8.6-10.6 [facility] Comment on above: Performed By: #### 2 4323-8 ####BHANU GREGORY L (68246)[facility] ([facility])35159 [place] [address] Chloride [Moles/Vol] 102 mmol/L Normal 98-107 [facility] Comment on above: Performed By: #### 2 4323-8 ####BHANU GREGORY L (05664)[facility] ([facility])[address]48 [address] [facility] [place] [address] CO2 [Moles/Vol] 29 mmol/L Normal 21-32 [facility] Comment on above: Performed By: #### 2 4323-8 ####BHANU Treviño (95073)[facility] ([facility])[address]72 [address] [facility] [address] Creatinine [Mass/Vol] 1.29 mg/dL Normal 0.50-1.30 [facility] Comment on above: Performed By: #### 2 4323-8 ####BHANU Treviño (32812)[facility] ([facility])[address]1991 [place] [address] Glomerular filtration rate/1.73 sq M.predicted 67 mL/min/1.73m*2 Normal >60 [facility] Comment on above: Result Comment: Calc ulations of estimated GFR are performed using the 2020 CKD-EPI Study Refit equation without the race variable for the IDMS-Traceable creatinine methods.https://jasn.asnjournals.org/content/early/ /ASN.1344892245 Performed By: #### 2 4323-8 ####BHANU Treviño (50982)[facility] ([facility])[address]71 [place] [address] Glucose [Mass/Vol] 100 mg/dL High 74-99 [facility] Comment on above: Performed By: #### 2 4323-8 ####BHANU Treviño (26242)[facility] ([facility])[address]83 [place] [address] Potassium [Moles/Vol] 4.0 mmol/L Normal 3.5-5.3 [facility] Comment on above: Performed By: #### 2 4323-8 ####BHANU Treviño (95697)[facility] ([facility])[address]7 [place] [address] Protein [Mass/Vol] 6.6 g/dL Normal 6.4-8.2 [facility] Comment on above: Performed By: #### 2 4323-8 ####BHANU MATOSER L (20690)[facility] ([facility])[address] [place] [address] 26123 Sodium [Moles/Vol] 139 mmol/L Normal 136-145 [facility] Comment on above: Performed By: #### 2 4323-8 ####BHANU SCHMOTZER L (39913)[facility] ([facility])[address] [place] [address] 76264 Urea nitrogen [Mass/Vol] 9 mg/dL Normal 6-23 [facility] Comment on above: Performed By: #### 2 4323-8 ####BHANU MATOSER L (90425)[facility] ([facility])[address] [place] [address]871 Magnesiumon 01-26-2025 Magnesium [Mass/Vol] 2.06 mg/dL Normal 1.60-2.40 [facility] Comment on above: Performed By: #### 1 9123-9 ####BHANU FLEMINGMOTZER L (82267)[facility] ([facility])[address] [place] [address] 55294 CBC W Auto Differential pane l (Bld)on 01-25-2025 Erythrocyte distribution width (RBC) [Ratio] 19.8 % High 11.5-14.5 [facility] Comment on above: Order Comment: [...] By: #### 5 7021-8 ####BHANU FLEMINGMOTZER L (27567)[facility] ([facility])[address]3397 [place] [address] Hematocrit (Bld) [Volume fraction] 28.8 % Low 41.0-52.0 [facility] Comment on above: Order Comment: [...] Performed By: #### 5 7021-8 ####BHANU Treviño (79134)[facility] ([facility])[address] [place] [address] 43167 Hemoglobin (Bld) [Mass/Vol] 9.0 g/dL Low 13.5-17.5 [facility] Comment on above: Order Comment: [...] Performed By: #### 5 7021-8 ####BHANU Treviño (86171)[facility] ([facility])30277 [place] [address] Immature granulocytes (Bld) [#/Vol] 0.06 x10*3/uL Normal 0.00-0.70 [facility] Comment on above: Order Comment: [...] Performed By: #### 5 7021-8 ####BHANU Treviño (86539)[facility] ([facility])[address]8971 [place] [address] Immature granulocytes/100 WBC (Bld) 0.6 % Normal 0.0-0.9 [facility] Comment on above: Order Comment: [...] Performed By: #### 5 7021-8 ####BHANU Treviño (88066)[facility] ([facility])[address]2872 [place] [address] MCH (RBC) [Entitic mass] 24.6 pg Low 26.0-34.0 [facility] Comment on above: Order Comment: [...] Performed By: #### 5 7021-8 ####BHANU Treviño (04509)[facility] ([facility])58860 [place] [address] MCHC (RBC) [Mass/Vol] 31.3 g/dL Low 32.0-36.0 [facility] Comment on above: Order Comment: [...] Performed By: #### 5 7021-8 ####BHANU Treviño (25933)[facility] ([facility])22897 [place] [address] MCV (RBC) [Entitic vol] 79 fL Low 80-100 [facility] Comment on above: Order Comment: [...] Performed By: #### 5 7021-8 ####BHANU Treviño (92372)[facility] ([facility])[address]2846 [place] [address] Nucleated RBC/100 WBC (Bld) [Ratio] 0.0 /100 WBCs Normal 0.0-0.0 [facility] Comment on above: Order Comment: [...] Performed By: #### 5 7021-8 ####BHANU Treviño (50210)[facility] ([facility])10920 [place] [address] Platelets (Bld) [#/Vol] 753 x10*3/uL High 150-450 [facility] Comment on above: Order Comment: [...] Performed By: #### 5 7021-8 ####BHANU Treviño (95903)[facility] ([facility])78773 [place] [address] RBC (Bld) [#/Vol] 3.66 x10*6/uL Low 4.50-5.90 [facility] Comment on above: Order Comment: The [...] Performed By: #### 5 7021-8 ####BHANU Treviño (87733)[facility] ([facility])47807 [place] [address] WBC (Bld) [#/Vol] 10.7 x10*3/uL Normal 4.4-11.3 [facility] Comment on above: Order Comment: The [...] Performed By: #### 5 7021-8 ####BHANU Treviño (69074)[facility] ([facility])29068 [place] [address] Comprehensive metabolic 2000 panelon 01-25-2025 Albumin BCP dye [Mass/Vol] 2.5 g/dL Low 3.4-5.0 [facility] Comment on above: Performed By: #### 2 4323-8 ####BHANU Treviño (02600)[facility] ([facility])10613 [place] [address] ALP [Catalytic activity/Vol] 69 U/L Normal 33-120 [facility] Comment on above: Performed By: #### 2 4323-8 ####BHANU Treviño (80768)[facility] ([facility])[address]486 [place] [address] ALT With P-5'-P [Catalytic activity/Vol] 34 U/L Normal 10-52 [facility] Comment on above: Result Comment: Sydni ents treated with Sulfasalazine may generate falsely decreased results for ALT. Performed By: #### 2 4323-8 ####BHANU Treviño (31800)[facility] ([facility])[address]299 [place] [address] Anion gap [Moles/Vol] 14 mmol/L Normal 10-20 [facility] Comment on above: Performed By: #### 2 4323-8 ####BHANU Treviño (23742)[facility] ([facility])[address]136 [place] [address] AST With P-5'-P [Catalytic activity/Vol] 43 U/L High 9-39 [facility] Comment on above: Performed By: #### 2 4323-8 ####BHANU Treviño (51509)[facility] ([facility])14824 [place] [address] Bilirubin [Mass/Vol] 0.4 mg/dL Normal 0.0-1.2 [facility] Comment on above: Performed By: #### 2 4323-8 ####BHANU Treviño (25501)[facility] ([facility])74257 [place] [address] Calcium [Mass/Vol] 8.5 mg/dL Low 8.6-10.6 [facility] Comment on above: Performed By: #### 2 4323-8 ####BHANU Treviño (62152)[facility] ([facility])90626 [place] [address] Chloride [Moles/Vol] 101 mmol/L Normal 98-107 [facility] Comment on above: Performed By: #### 2 4323-8 ####BHANU Treviño (33723)[facility] ([facility])[address]113 [place] [address] CO2 [Moles/Vol] 26 mmol/L Normal 21-32 [facility] Comment on above: Performed By: #### 2 4323-8 ####BHANU Treviño (49770)[facility] ([facility])[address]2009 [place] [address] Creatinine [Mass/Vol] 1.11 mg/dL Normal 0.50-1.30 [facility] Comment on above: Performed By: #### 2 4323-8 ####BHANU GREGORY L (61612)[facility] ([facility])44920 [place] [address] Glomerular filtration rate/1.73 sq M.predicted 80 mL/min/1.73m*2 Normal >60 [facility] Comment on above: Result Comment: Calc ulations of estimated GFR are performed using the 2020 CKD-EPI Study Refit equation without the race variable for the IDMS-Traceable creatinine methods.https://jasn.asnjournals.org/content/early/ /ASN.4345939439 Performed By: #### 2 4323-8 ####BHANU Treviño (18725)[facility] ([facility])[address] [place] [address] Glucose [Mass/Vol] 100 mg/dL High 74-99 [facility] Comment on above: Performed By: #### 2 4323-8 ####BHANU Treviño ([id number])[facility] ([facility])[address] [place] [address] Potassium [Moles/Vol] 3.9 mmol/L Normal 3.5-5.3 [facility] Comment on above: Performed By: #### 2 4323-8 ####BHANU GREGORY L ([id number])[facility] ([facility])[address] [place] [address] Protein [Mass/Vol] 6.8 g/dL Normal 6.4-8.2 [facility] Comment on above: Performed By: #### 2 4323-8 ####BHANU Treviño ([id number])[facility] ([facility])[address] [place] [address] Sodium [Moles/Vol] 137 mmol/L Normal 136-145 [facility] Comment on above: Performed By: #### 2 4323-8 ####BHANU Treviño ([id number])[facility] ([facility])[id number] [place], [place] [address] 40667 Urea nitrogen [Mass/Vol] 8 mg/dL Normal 6-23 [facility] Comment on above: Performed By: #### 2 4323-8 ####BHANU Treviño ([id number])[facility] ([facility])[id number] [place] [address] 19554 Magnesiumon 01-25-2025 Magnesium [Mass/Vol] 2.08 mg/dL Normal 1.60-2.40 [facility] Comment on above: Performed By: #### 1 9123-9 ####BHANU Treviño (86136)[facility] ([facility])[address] [place] [address] 54930 Manual differential performe d Ql (Bld)on 01-25-2025 Band form neutrophils (Bld) [#/Vol] 0.28 x10*3/uL Normal 0.00-0.70 [facility] Comment on above: Performed By: #### 5 0957-0 ####BHANU Treviño (76634)[facility] ([facility])[address] [place] [address] 45368 Band form neutrophils/100 WBC (Bld) 2.6 % Normal 0.0-5.0 [facility] Comment on above: Performed By: #### 5 0957-0 ####BHANU Treviño ([id number])[facility] ([facility])[address] [place] [address] 94610 Basophils (Bld) [#/Vol] 0.00 x10*3/uL Normal 0.00-0.10 [facility] Comment on above: Performed By: #### 5 0957-0 ####BHANU Treviño ([id number])[facility] ([facility])[address] [place] [address] Basophils/100 WBC (Bld) 0.0 % Normal 0.0-2.0 [facility] Comment on above: Performed By: #### 5 0957-0 ####BHANU Treviño (66451)[facility] ([facility])[address] [place] [address] Cells Counted Total (Bld) [#] [address] [facility] Comment on above: Performed By: #### 5 0957-0 ####BHANU Treviño (65681)[facility] ([facility])[address]37 [place] [address] Eosinophils (Bld) [#/Vol] 0.09 x10*3/uL Normal 0.00-0.70 [facility] Comment on above: Performed By: #### 5 0957-0 ####BHANU Treviño (99965)[facility] ([facility])[address]169 [place] [address] Eosinophils/100 WBC (Bld) 0.8 % Normal 0.0-6.0 [facility] Comment on above: Performed By: #### 5 0957-0 ####BHANU Treviño (90572)[facility] ([facility])[address]146 [place] [address] Hypochromia Ql (Bld) Mild Normal [facility] Comment on above: Performed By: #### 5 0957-0 ####BHANU Treviño (39215)[facility] ([facility])[address]58 [place] [address] Lymphocytes (Bld) [#/Vol] 0.46 x10*3/uL Low 1.20-4.80 [facility] Comment on above: Performed By: #### 5 0957-0 ####BHANU Treviño (39492)[facility] ([facility])[address]62 [place] [address] Lymphocytes/100 WBC (Bld) 4.3 % Normal 13.0-44.0 [facility] Comment on above: Performed By: #### 5 0957-0 ####BHANU Treviño (97185)[facility] ([facility])[address]374 [place] [address] Monocytes (Bld) [#/Vol] 0.46 x10*3/uL Normal 0.10-1.00 [facility] Comment on above: Performed By: #### 5 0957-0 ####BHANU Treviño (21007)[facility] ([facility])[address]885 [place] [address] Monocytes/100 WBC (Bld) 4.3 % Normal 2.0-10.0 [facility] Comment on above: Performed By: #### 5 0957-0 ####BHANU Treviño (62943)[facility] ([facility])[address] [place] [address] 45714 Neutrophils (Bld) [#/Vol] 9.60 x10*3/uL High 1.20-7.70 [facility] Comment on above: Performed By: #### 5 0957-0 ####BHANU Treviño (48267)[facility] ([facility])[address]220 [place] [address] RBC morphology finding Nom (Bld) See Below Normal [facility] Comment on above: Performed By: #### 5 0957-0 ####BHANU Treviño (83582)[facility] ([facility])[address] [place] [address] 48106 Segmented neutrophils (Bld) [#/Vol] 9.32 x10*3/uL High 1.20-7.00 [facility] Comment on above: Performed By: #### 5 0957-0 ####BHANU Treviño (85384)[facility] ([facility])[address]908 [place] [address] Segmented neutrophils/100 WBC (Bld) 87.1 % Normal 40.0-80.0 [facility] Comment on above: Result Comment: Perc ent differential counts (%) should be interpreted in the context of the absolute cell counts (cells/uL). Performed By: #### 5 0957-0 ####BHANU Treviño (45600)[facility] ([facility])[address] [place] [address] 20363 Target cells LM Ql (Bld) Few Normal [facility] Comment on above: Performed By: #### 5 0957-0 ####BHANU Treviño (11971)[facility] ([facility])[address] [place] [address] 43869 Variant lymphocytes (Bld) [#/Vol] 0.10 x10*3/uL Normal 0.00-0.50 [facility] Comment on above: Performed By: #### 5 0957-0 ####BHANU Treviño (96344)[facility] ([facility])[address] [place] [address] 15910 Variant lymphocytes/100 WBC (Bld) 0.9 % Normal 0.0-2.0 [facility] Comment on above: Performed By: #### 5 0957-0 ####BHANU Treviño (64072)[facility] ([facility])[address] [place] [address] 43347 Bacteria identifiedon 2024 Bacteria identified Cx Nom (Unsp spec) Abnormal [facility] Comment on above: Performed By: #### 6 463-4 ####BHANU Treviño (45479)[facility] ([facility])[address] [place] [address] 01671 Blood type and Indirect anti body screen panel (Bld)on 01-24-2025 ABO group Nom (Bld) A Normal [facility] Comment on above: Performed By: #### 3 4532-2 ####BHANU Treviño (20653)[facility] [place] [address] 28723 Blood group antibody screen Ql Negative Normal [facility] Comment on above: Performed By: #### 3 4532-2 ####BHANU Treviño (79082)[facility] ([facility])[address]676 [facility] [place] [address] D Ag Ql (Bld) Positive Normal [facility] Comment on above: Performed By: #### 3 4532-2 ####BHANU Treviño (30580)[facility] ([facility])[address] [place] [address] CBC W Auto Differential pane l (Bld)on 01-24-2025 Basophils (Bld) [#/Vol] 0.07 x10*3/uL Normal 0.00-0.10 [facility] Comment on above: Performed By: #### 5 7021-8 ####BHANU Treviño (36269)[facility] ([facility])[address] [place] [address] Basophils/100 WBC (Bld) 0.7 % Normal 0.0-2.0 [facility] Comment on above: Performed By: #### 5 7021-8 ####BHANU Treviño (16047)[facility] ([facility])[address]92 [place] [address] Eosinophils (Bld) [#/Vol] 0.31 x10*3/uL Normal 0.00-0.70 [facility] Comment on above: Performed By: #### 5 7021-8 ####BHANU Treviño (70837)[facility] ([facility])[address]59 [place] [address] Eosinophils/100 WBC (Bld) 3.3 % Normal 0.0-6.0 [facility] Comment on above: Performed By: #### 5 7021-8 ####BHANU Treviño (60646)[facility] ([facility])[address]991 [place] [address] Erythrocyte distribution width (RBC) [Ratio] 19.7 % High 11.5-14.5 [facility] Comment on above: Performed By: #### 5 7021-8 ####BHANU Treviño (69520)[facility] ([facility])[address]47 [place] [address] Hematocrit (Bld) [Volume fraction] 27.2 % Low 41.0-52.0 [facility] Comment on above: Performed By: #### 5 7021-8 ####BHANU Treviño (39662)[facility] ([facility])[address]778 [place] [address] Hemoglobin (Bld) [Mass/Vol] 8.6 g/dL Low 13.5-17.5 [facility] Comment on above: Performed By: #### 5 7021-8 ####BHANU Treviño (82123)[facility] ([facility])[address]71 [place] [address] Immature granulocytes (Bld) [#/Vol] 0.06 x10*3/uL Normal 0.00-0.70 [facility] Comment on above: Performed By: #### 5 7021-8 ####BHANU Treviño (40685)[facility] ([facility])[address]59 [place] [address] Immature granulocytes/100 WBC (Bld) 0.6 % Normal 0.0-0.9 [facility] Comment on above: Result Comment: Christine ture Granulocyte Count (IG) includes promyelocytes, myelocytes and metamyelocytes but does not include bands. Percent differential counts (%) should be interpreted in the context of the absolute cell counts (cells/UL). Performed By: #### 5 7021-8 ####BHANU Treviño (59664)[facility] ([facility])[address]223 [place] [address] Lymphocytes (Bld) [#/Vol] 1.12 x10*3/uL Low 1.20-4.80 [facility] Comment on above: Performed By: #### 5 7021-8 ####BHANU Treviño (39070)[facility] ([facility])76027 [place] [address] Lymphocytes/100 WBC (Bld) 11.8 % Normal 13.0-44.0 [facility] Comment on above: Performed By: #### 5 7021-8 ####BHANU Treviño (51105)[facility] ([facility])[address]13 [place] [address] MCH (RBC) [Entitic mass] 24.5 pg Low 26.0-34.0 [facility] Comment on above: Performed By: #### 5 7021-8 ####BHANU Treviño (37840)[facility] ([facility])[address] [place] [address] 59458 MCHC (RBC) [Mass/Vol] 31.6 g/dL Low 32.0-36.0 [facility] Comment on above: Performed By: #### 5 7021-8 ####BHANU Treviño (43117)[facility] ([facility])[address] [place] [address] 27396 MCV (RBC) [Entitic vol] 78 fL Low 80-100 [facility] Comment on above: Performed By: #### 5 7021-8 ####BHANU Treviño (51198)[facility] ([facility])[address] [place] [address] 18796 Monocytes (Bld) [#/Vol] 1.07 x10*3/uL High 0.10-1.00 [facility] Comment on above: Performed By: #### 5 7021-8 ####BHANU Treviño (75950)[facility] ([facility])[address] [place] [address] 98457 Monocytes/100 WBC (Bld) 11.3 % Normal 2.0-10.0 [facility] Comment on above: Performed By: #### 5 7021-8 ####BHANU Treviño (90209)[facility] ([facility])[address] [place] [address] 66435 Neutrophils (Bld) [#/Vol] 6.87 x10*3/uL Normal 1.20-7.70 [facility] Comment on above: Result Comment: Perc ent differential counts (%) should be interpreted in the context of the absolute cell counts (cells/uL). Performed By: #### 5 7021-8 ####BHANU Treviño (59273)[facility] ([facility])[address]17 [place] [address] Neutrophils/100 WBC (Bld) 72.3 % Normal 40.0-80.0 [facility] Comment on above: Performed By: #### 5 7021-8 ####BHANU Treviño (52938)[facility] ([facility])55344 [place] [address] Nucleated RBC/100 WBC (Bld) [Ratio] 0.0 /100 WBCs Normal 0.0-0.0 [facility] Comment on above: Performed By: #### 5 7021-8 ####BHANU Treviño (89614)[facility] ([facility])36964 [place] [address] Platelets (Bld) [#/Vol] 722 x10*3/uL High 150-450 [facility] Comment on above: Performed By: #### 5 7021-8 ####BHANU Treviño (68416)[facility] ([facility])73962 [place] [address] RBC (Bld) [#/Vol] 3.51 x10*6/uL Low 4.50-5.90 [facility] Comment on above: Performed By: #### 5 7021-8 ####BHANU Treviño (43320)[facility] ([facility])[address]2110 [place] [address] WBC (Bld) [#/Vol] 9.5 x10*3/uL Normal 4.4-11.3 [facility] Comment on above: Performed By: #### 5 7021-8 ####BHANU Treviño (47154)[facility] ([facility])51191 [place] [address] Basophils (Bld) [#/Vol] 0.07 x10*3/uL Normal 0.00-0.10 [facility] Comment on above: Performed By: #### 5 7021-8 ####BHANU Treviño (87953)[facility] ([facility])[address]2821 [place] [address] Basophils/100 WBC (Bld) 0.8 % Normal 0.0-2.0 [facility] Comment on above: Performed By: #### 5 7021-8 ####BHANU Treviño (17588)[facility] ([facility])[address] [place] [address] 67900 Eosinophils (Bld) [#/Vol] 0.09 x10*3/uL Normal 0.00-0.70 [facility] Comment on above: Performed By: #### 5 7021-8 ####BHANU Treviño (43605)[facility] ([facility])[address] [place] [address] 75172 Eosinophils/100 WBC (Bld) 1.1 % Normal 0.0-6.0 [facility] Comment on above: Performed By: #### 5 7021-8 ####BHANU Treviño (18506)[facility] ([facility])38996 [place] [address] Erythrocyte distribution width (RBC) [Ratio] 19.7 % High 11.5-14.5 [facility] Comment on above: Performed By: #### 5 7021-8 ####BHANU Treviño (04303)[facility] ([facility])[address] [place] [address] 55742 Hematocrit (Bld) [Volume fraction] 27.4 % Low 41.0-52.0 [facility] Comment on above: Performed By: #### 5 7021-8 ####BHANU Treviño (42665)[facility] ([facility])[address] [place] [address] 87795 Hemoglobin (Bld) [Mass/Vol] 8.6 g/dL Low 13.5-17.5 [facility] Comment on above: Performed By: #### 5 7021-8 ####BHANU Treviño (68967)[facility] ([facility])12943 [place] [address] Immature granulocytes (Bld) [#/Vol] 0.04 x10*3/uL Normal 0.00-0.70 [facility] Comment on above: Performed By: #### 5 7021-8 ####BHANU Treviño (59479)[facility] ([facility])39091 [place] [address] Immature granulocytes/100 WBC (Bld) 0.5 % Normal 0.0-0.9 [facility] Comment on above: Result Comment: Christine ture Granulocyte Count (IG) includes promyelocytes, myelocytes and metamyelocytes but does not include bands. Percent differential counts (%) should be interpreted in the context of the absolute cell counts (cells/UL). Performed By: #### 5 7021-8 ####BHANU Treviño (27538)[facility] ([facility])54685 [place] [address] Lymphocytes (Bld) [#/Vol] 1.33 x10*3/uL Normal 1.20-4.80 [facility] Comment on above: Performed By: #### 5 7021-8 ####BHANU Treviño (24364)[facility] ([facility])00604 [place] [address] Lymphocytes/100 WBC (Bld) 15.8 % Normal 13.0-44.0 [facility] Comment on above: Performed By: #### 5 7021-8 ####BHANU Treviño (25894)[facility] ([facility])49393 [place] [address] MCH (RBC) [Entitic mass] 24.1 pg Low 26.0-34.0 [facility] Comment on above: Performed By: #### 5 7021-8 ####BHANU GREGORY L (11434)[facility] ([facility])74231 [place] [address] MCHC (RBC) [Mass/Vol] 31.4 g/dL Low 32.0-36.0 [facility] Comment on above: Performed By: #### 5 7021-8 ####BHANU Treviño (47612)[facility] ([facility])26884 [place] [address] MCV (RBC) [Entitic vol] 77 fL Low 80-100 [facility] Comment on above: Performed By: #### 5 7021-8 ####BHANU Treviño (91255)[facility] ([facility])[address] [place] [address] 59323 Monocytes (Bld) [#/Vol] 1.12 x10*3/uL High 0.10-1.00 [facility] Comment on above: Performed By: #### 5 7021-8 ####BHANU Treviño (76875)[facility] ([facility])95563 [place] [address] Monocytes/100 WBC (Bld) 13.3 % Normal 2.0-10.0 [facility] Comment on above: Performed By: #### 5 7021-8 ####BHANU Treviño (14959)[facility] ([facility])[address] [place] [address] 11953 Neutrophils (Bld) [#/Vol] 5.79 x10*3/uL Normal 1.20-7.70 [facility] Comment on above: Result Comment: Perc ent differential counts (%) should be interpreted in the context of the absolute cell counts (cells/uL). Performed By: #### 5 7021-8 ####BHANU Treviño (71416)[facility] ([facility])89668 [place] [address] Neutrophils/100 WBC (Bld) 68.5 % Normal 40.0-80.0 [facility] Comment on above: Performed By: #### 5 7021-8 ####BHANU Treviño (66146)[facility] ([facility])95498 [place] [address] Nucleated RBC/100 WBC (Bld) [Ratio] 0.0 /100 WBCs Normal 0.0-0.0 [facility] Comment on above: Performed By: #### 5 7021-8 ####BHANU Treviño (69006)[facility] ([facility])[address] [place] [address] 72793 Platelets (Bld) [#/Vol] 737 x10*3/uL High 150-450 [facility] Comment on above: Performed By: #### 5 7021-8 ####BHANU GREGORY L (23102)[facility] ([facility])[address] [place] [address] 30887 RBC (Bld) [#/Vol] 3.57 x10*6/uL Low 4.50-5.90 [facility] Comment on above: Performed By: #### 5 7021-8 ####BHANU GREGORY L (08737)[facility] ([facility])[address] [place] [address] 84258 WBC (Bld) [#/Vol] 8.4 x10*3/uL Normal 4.4-11.3 [facility] Comment on above: Performed By: #### 5 7021-8 ####BAHNU Treviño (61005)[facility] ([facility])[address] [place] [address] 66718 Comprehensive metabolic 2000 panelon 01-24-2025 Albumin BCP dye [Mass/Vol] 2.4 g/dL Low 3.4-5.0 [facility] Comment on above: Performed By: #### 2 4323-8 ####BHANU GREGORY L (27552)[facility] ([facility])[address] [place] [address] 36069 ALP [Catalytic activity/Vol] 70 U/L Normal 33-120 [facility] Comment on above: Performed By: #### 2 4323-8 ####BHANU GREGORY L (39285)[facility] ([facility])[address] [place] [address] 55684 ALT With P-5'-P [Catalytic activity/Vol] 38 U/L Normal 10-52 [facility] Comment on above: Result Comment: Sydni ents treated with Sulfasalazine may generate falsely decreased results for ALT. Performed By: #### 2 4323-8 ####BHANU Treviño (38125)[facility] ([facility])28741 [place] [address] Anion gap [Moles/Vol] 13 mmol/L Normal 10-20 [facility] Comment on above: Performed By: #### 2 4323-8 ####BHANU Treviño (15401)[facility] ([facility])10079 [place] [address] AST With P-5'-P [Catalytic activity/Vol] 46 U/L High 9-39 [facility] Comment on above: Performed By: #### 2 4323-8 ####BHANU GREGORY L (83470)[facility] ([facility])00043 [place] [address] Bilirubin [Mass/Vol] 0.3 mg/dL Normal 0.0-1.2 [facility] Comment on above: Performed By: #### 2 4323-8 ####BHANU GREGORY L (32093)[facility] ([facility])79268 [place] [address] Calcium [Mass/Vol] 8.5 mg/dL Low 8.6-10.6 [facility] Comment on above: Performed By: #### 2 4323-8 ####BHANU GREGORY L (02428)[facility] ([facility])[address]6613 [place] [address] Chloride [Moles/Vol] 101 mmol/L Normal 98-107 [facility] Comment on above: Performed By: #### 2 4323-8 ####BHANU GERGORY L (18263)[facility] ([facility])42835 [place] [address] CO2 [Moles/Vol] 27 mmol/L Normal 21-32 [facility] Comment on above: Performed By: #### 2 4323-8 ####BHANU Treviño (81999)[facility] ([facility])39388 [place] [address] Creatinine [Mass/Vol] 1.20 mg/dL Normal 0.50-1.30 [facility] Comment on above: Performed By: #### 2 4323-8 ####BHANU Treviño (85576)[facility] ([facility])39462 [place] [address] Glomerular filtration rate/1.73 sq M.predicted 73 mL/min/1.73m*2 Normal >60 [facility] Comment on above: Result Comment: Calc ulations of estimated GFR are performed using the 2020 CKD-EPI Study Refit equation without the race variable for the IDMS-Traceable creatinine methods.https://jasn.asnjournals.org/content/early /ASN.4568754740 Performed By: #### 2 4323-8 ####BHANU Treviño (70017)[facility] ([facility])23392 [place] [address] Glucose [Mass/Vol] 103 mg/dL High 74-99 [facility] Comment on above: Performed By: #### 2 4323-8 ####BHANU Treviño (28184)[facility] ([facility])23226 [place] [address] Potassium [Moles/Vol] 4.1 mmol/L Normal 3.5-5.3 [facility] Comment on above: Performed By: #### 2 4323-8 ####BHANU Treviño (78820)[facility] ([facility])06210 [place] [address] Protein [Mass/Vol] 6.5 g/dL Normal 6.4-8.2 [facility] Comment on above: Performed By: #### 2 4323-8 ####BHANU Treviño (84817)[facility] ([facility])[address]59 [place] [address] Sodium [Moles/Vol] 137 mmol/L Normal 136-145 [facility] Comment on above: Performed By: #### 2 4323-8 ####BHANU Treviño (68316)[facility] ([facility])10270 [place] [address] Urea nitrogen [Mass/Vol] 10 mg/dL Normal 6-23 [facility] Comment on above: Performed By: #### 2 4323-8 ####BHANU Treviño (94719)[facility] ([facility])[address] [place] [address] 00287 Magnesiumon 01-24-2025 Magnesium [Mass/Vol] 1.89 mg/dL Normal 1.60-2.40 [facility] Comment on above: Performed By: #### 1 9123-9 ####BHANU Treviño (79501)[facility] ([facility])[address] [place] [address] 48043 RBC shape Nom (Bld)on 2024 Hypochromia Ql (Bld) Mild Normal [facility] Comment on above: Performed By: #### 1 8225-3 ####BHANU Treviño (75375)[facility] ([facility])[address] [place] [address] 54932 RBC morphology finding Nom (Bld) See Below [facility] Comment on above: Performed By: #### 1 8225-3 ####BHANU Treviño (89740)[facility] ([facility])[address] [place] [address] 66585 Stomatocytes LM Ql (Bld) Few [facility] Comment on above: Performed By: #### 1 8225-3 ####BHANU Treviño (95350)[facility] ([facility])[address] [place] [address] 04831 CBC W Auto Differential pane l (Bld)on 01-23-2025 Basophils (Bld) [#/Vol] 0.08 x10*3/uL Normal 0.00-0.10 [facility] Comment on above: Performed By: #### 5 7021-8 ####BHANU Treviño ([id number])[facility] ([facility])[id number] [place] [address] Basophils/100 WBC (Bld) 0.9 % Normal 0.0-2.0 [facility] Comment on above: Performed By: #### 5 7021-8 ####BHANU Treviño ([id number])[facility] ([facility])[id number] [place] [address] Eosinophils (Bld) [#/Vol] 0.57 x10*3/uL Normal 0.00-0.70 [facility] Comment on above: Performed By: #### 5 7021-8 ####BHANU Treviño ([id number])[facility] ([facility])[id number] [place] [address] Eosinophils/100 WBC (Bld) 6.5 % Normal 0.0-6.0 [facility] Comment on above: Performed By: #### 5 7021-8 ####BHANU Treviño ([id number])[facility] ([facility])[id number] [place] [address] Erythrocyte distribution width (RBC) [Ratio] 19.8 % High 11.5-14.5 [facility] Comment on above: Performed By: #### 5 7021-8 ####BHANU Treviño ([id number])[facility] ([facility])[id number] [place] [address] Hematocrit (Bld) [Volume fraction] 26.8 % Low 41.0-52.0 [facility] Comment on above: Performed By: #### 5 7021-8 ####BHANU Treviño ([id number])[facility] ([facility])[address] [place] [address] Hemoglobin (Bld) [Mass/Vol] 8.5 g/dL Low 13.5-17.5 [facility] Comment on above: Performed By: #### 5 7021-8 ####BHANU Treviño ([id number])[facility] ([facility])[address] [place] [address] Immature granulocytes (Bld) [#/Vol] 0.05 x10*3/uL Normal 0.00-0.70 [facility] Comment on above: Performed By: #### 5 7021-8 ####BHANU Treviño ([id number])[facility] ([facility])[address]446 [place] [address] Immature granulocytes/100 WBC (Bld) 0.6 % Normal 0.0-0.9 [facility] Comment on above: Result Comment: Christine ture Granulocyte Count (IG) includes promyelocytes, myelocytes and metamyelocytes but does not include bands. Percent differential counts (%) should be interpreted in the context of the absolute cell counts (cells/UL). Performed By: #### 5 7021-8 ####BHANU Treviño ([id number])[facility] ([facility])[id number] [place] [address] Lymphocytes (Bld) [#/Vol] 1.22 x10*3/uL Normal 1.20-4.80 [facility] Comment on above: Performed By: #### 5 7021-8 ####BHANU Treviño ([id number])[facility] ([facility])[address] [place] [address] Lymphocytes/100 WBC (Bld) 14.0 % Normal 13.0-44.0 [facility] Comment on above: Performed By: #### 5 7021-8 ####BHANU Treviño ([id number])[facility] ([facility])[address] [place] [address] MCH (RBC) [Entitic mass] 24.6 pg Low 26.0-34.0 [facility] Comment on above: Performed By: #### 5 7021-8 ####BHANU Treviño ([id number])[facility] ([facility])[address] [place] [address] MCHC (RBC) [Mass/Vol] 31.7 g/dL Low 32.0-36.0 [facility] Comment on above: Performed By: #### 5 7021-8 ####BHANU Treviño ([id number])[facility] ([facility])[address] [place] [address] MCV (RBC) [Entitic vol] 78 fL Low 80-100 [facility] Comment on above: Performed By: #### 5 7021-8 ####BHANU Treviño ([id number])[facility] ([facility])[address] [place] [address] Monocytes (Bld) [#/Vol] 0.90 x10*3/uL Normal 0.10-1.00 [facility] Comment on above: Performed By: #### 5 7021-8 ####BHANU Treviño ([id number])[facility] ([facility])[address]842 [place] [address] Monocytes/100 WBC (Bld) 10.3 % Normal 2.0-10.0 [facility] Comment on above: Performed By: #### 5 7021-8 ####BHANU Treviño (80825)[facility] ([facility])[address] [place] [address] Neutrophils (Bld) [#/Vol] 5.91 x10*3/uL Normal 1.20-7.70 [facility] Comment on above: Result Comment: Perc ent differential counts (%) should be interpreted in the context of the absolute cell counts (cells/uL). Performed By: #### 5 7021-8 ####BHANU Treviño ([id number])[facility] ([facility])[address] [place] [address] Neutrophils/100 WBC (Bld) 67.7 % Normal 40.0-80.0 [facility] Comment on above: Performed By: #### 5 7021-8 ####BHANU Treviño (54864)[facility] ([facility])[address] [place] [address] Nucleated RBC/100 WBC (Bld) [Ratio] 0.0 /100 WBCs Normal 0.0-0.0 [facility] Comment on above: Performed By: #### 5 7021-8 ####BHANU GREGORY L (64830)[facility] ([facility])[address]166 [place] [address] Platelets (Bld) [#/Vol] 760 x10*3/uL High 150-450 [facility] Comment on above: Performed By: #### 5 7021-8 ####BHANU Treviño (32557)[facility] ([facility])[address] [place] [address] RBC (Bld) [#/Vol] 3.46 x10*6/uL Low 4.50-5.90 [facility] Comment on above: Performed By: #### 5 7021-8 ####BHANU Treviño (30258)[facility] ([facility])[address] [place] [address] WBC (Bld) [#/Vol] 8.7 x10*3/uL Normal 4.4-11.3 [facility] Comment on above: Performed By: #### 5 7021-8 ####BHANU Treviño (99852)[facility] ([facility])[address]094 [place] [address] Basophils (Bld) [#/Vol] 0.07 x10*3/uL Normal 0.00-0.10 [facility] Comment on above: Performed By: #### 5 7021-8 ####BHANU GREGORY L ([id number])[facility] ([facility])[address]129 [place] [address] Basophils/100 WBC (Bld) 0.8 % Normal 0.0-2.0 [facility] Comment on above: Performed By: #### 5 7021-8 ####BHANU Treviño (14580)[facility] ([facility])[id number] [place] [address] Eosinophils (Bld) [#/Vol] 0.36 x10*3/uL Normal 0.00-0.70 [facility] Comment on above: Performed By: #### 5 7021-8 ####BHANU Treviño (39521)[facility] ([facility])[address] [place] [address] Eosinophils/100 WBC (Bld) 4.2 % Normal 0.0-6.0 [facility] Comment on above: Performed By: #### 5 7021-8 ####BHANU Treviño (04442)[facility] ([facility])[address] [place] [address] Erythrocyte distribution width (RBC) [Ratio] 19.9 % High 11.5-14.5 [facility] Comment on above: Performed By: #### 5 7021-8 ####BHANU Treviño (60341)[facility] ([facility])[address] [place] [address] Hematocrit (Bld) [Volume fraction] 28.0 % Low 41.0-52.0 [facility] Comment on above: Performed By: #### 5 7021-8 ####BHANU Treviño (26127)[facility] ([facility])[address] [place] [address] Hemoglobin (Bld) [Mass/Vol] 8.7 g/dL Low 13.5-17.5 [facility] Comment on above: Performed By: #### 5 7021-8 ####BHANU Treviño (33604)[facility] ([facility])[address] [place] [address] Immature granulocytes (Bld) [#/Vol] 0.05 x10*3/uL Normal 0.00-0.70 [facility] Comment on above: Performed By: #### 5 7021-8 ####BHANU Treviño (46274)[facility] ([facility])[address] [place] [address] Immature granulocytes/100 WBC (Bld) 0.6 % Normal 0.0-0.9 [facility] Comment on above: Result Comment: Christine ture Granulocyte Count (IG) includes promyelocytes, myelocytes and metamyelocytes but does not include bands. Percent differential counts (%) should be interpreted in the context of the absolute cell counts (cells/UL). Performed By: #### 5 7021-8 ####BHANU Treviño (16425)[facility] ([facility])[address]01 [place] [address] Lymphocytes (Bld) [#/Vol] 0.89 x10*3/uL Low 1.20-4.80 [facility] Comment on above: Performed By: #### 5 7021-8 ####BHANU Treviño (62164)[facility] ([facility])[address] [place] [address] Lymphocytes/100 WBC (Bld) 10.5 % Normal 13.0-44.0 [facility] Comment on above: Performed By: #### 5 7021-8 ####BHANU Treviño (90427)[facility] ([facility])[address] [place] [address] MCH (RBC) [Entitic mass] 24.4 pg Low 26.0-34.0 [facility] Comment on above: Performed By: #### 5 7021-8 ####BHANU Treviño (58103)[facility] ([facility])[address]10 [place] [address] MCHC (RBC) [Mass/Vol] 31.1 g/dL Low 32.0-36.0 [facility] Comment on above: Performed By: #### 5 7021-8 ####BHANU Treviño (13332)[facility] ([facility])[address]691 [place] [address] MCV (RBC) [Entitic vol] 78 fL Low 80-100 [facility] Comment on above: Performed By: #### 5 7021-8 ####BHANU Treviño (85731)[facility] ([facility])[address]144 [place] [address] Monocytes (Bld) [#/Vol] 0.89 x10*3/uL Normal 0.10-1.00 [facility] Comment on above: Performed By: #### 5 7021-8 ####BHANU Treviño (99274)[facility] ([facility])[address]86 [place] [address] Monocytes/100 WBC (Bld) 10.5 % Normal 2.0-10.0 [facility] Comment on above: Performed By: #### 5 7021-8 ####BHANU Treviño (79547)[facility] ([facility])[address]254 [place] [address] Neutrophils (Bld) [#/Vol] 6.23 x10*3/uL Normal 1.20-7.70 [facility] Comment on above: Result Comment: Perc ent differential counts (%) should be interpreted in the context of the absolute cell counts (cells/uL). Performed By: #### 5 7021-8 ####BHANU Treviño (28381)[facility] ([facility])[address] [place] [address] Neutrophils/100 WBC (Bld) 73.4 % Normal 40.0-80.0 [facility] Comment on above: Performed By: #### 5 7021-8 ####BHANU Treviño (79405)[facility] ([facility])[address]187 [place] [address] Nucleated RBC/100 WBC (Bld) [Ratio] 0.0 /100 WBCs Normal 0.0-0.0 [facility] Comment on above: Performed By: #### 5 7021-8 ####BHANU Treviño (69672)[facility] ([facility])[address] [place] [address] Platelets (Bld) [#/Vol] 749 x10*3/uL High 150-450 [facility] Comment on above: Performed By: #### 5 7021-8 ####BHANU Treviño (81625)[facility] ([facility])[address]35 [place] [address] RBC (Bld) [#/Vol] 3.57 x10*6/uL Low 4.50-5.90 [facility] Comment on above: Performed By: #### 5 7021-8 ####BHANU Treviño (48570)[facility] ([facility])[address]13 [place] [address] WBC (Bld) [#/Vol] 8.5 x10*3/uL Normal 4.4-11.3 [facility] Comment on above: Performed By: #### 5 7021-8 ####BHANU Treviño (67236)[facility] ([facility])[address] [place] [address] Comprehensive metabolic 2000 panelon 01-23-2025 Albumin BCP dye [Mass/Vol] 2.3 g/dL Low 3.4-5.0 [facility] Comment on above: Performed By: #### 2 4323-8 ####BHANU Treviño (50136)[facility] ([facility])[address] [place] [address] ALP [Catalytic activity/Vol] 72 U/L Normal 33-120 [facility] Comment on above: Performed By: #### 2 4323-8 ####BHANU Treviño (98049)[facility] ([facility])[address] [place] [address] ALT With P-5'-P [Catalytic activity/Vol] 38 U/L Normal 10-52 [facility] Comment on above: Result Comment: Sydni ents treated with Sulfasalazine may generate falsely decreased results for ALT. Performed By: #### 2 4323-8 ####BHANU Treviño (60756)[facility] ([facility])[address]377 [place] [address] Anion gap [Moles/Vol] 14 mmol/L Normal 10-20 [facility] Comment on above: Performed By: #### 2 4323-8 ####BHANU Treviño (97750)[facility] ([facility])[address]44 [place] [address] AST With P-5'-P [Catalytic activity/Vol] 56 U/L High 9-39 [facility] Comment on above: Performed By: #### 2 4323-8 ####BHANU Treviño (96321)[facility] ([facility])[address] [place] [address] Bilirubin [Mass/Vol] 0.4 mg/dL Normal 0.0-1.2 [facility] Comment on above: Performed By: #### 2 4323-8 ####BHANU Treviño (58026)[facility] ([facility])[address] [place] [address] Calcium [Mass/Vol] 8.0 mg/dL Low 8.6-10.6 [facility] Comment on above: Performed By: #### 2 4323-8 ####BHANU Treviño (93934)[facility] ([facility])[address]167 [place] [address] Chloride [Moles/Vol] 102 mmol/L Normal 98-107 [facility] Comment on above: Performed By: #### 2 4323-8 ####BHANU Treviño (61854)[facility] ([facility])[address]21 [place] [address] CO2 [Moles/Vol] 27 mmol/L Normal 21-32 [facility] Comment on above: Performed By: #### 2 4323-8 ####BHANU Treviño (01020)[facility] ([facility])[address]57 [place] [address] Creatinine [Mass/Vol] 1.23 mg/dL Normal 0.50-1.30 [facility] Comment on above: Performed By: #### 2 4323-8 ####BHANU Treviño (04911)[facility] ([facility])[address]194 [place] [address] Glomerular filtration rate/1.73 sq M.predicted 71 mL/min/1.73m*2 Normal >60 [facility] Comment on above: Result Comment: Calc ulations of estimated GFR are performed using the 2020 CKD-EPI Study Refit equation without the race variable for the IDMS-Traceable creatinine methods.https://jasn.asnjournals.org/content/early/ /ASN.7338901935 Performed By: #### 2 4323-8 ####BHANU GREGORY L (88759)[facility] ([facility])[address]125 [place] [address] Glucose [Mass/Vol] 87 mg/dL Normal 74-99 [facility] Comment on above: Performed By: #### 2 4323-8 ####BHANU GREGORY L ([id number])[facility] ([facility])[address]79 [place] [address] Potassium [Moles/Vol] 4.7 mmol/L Normal 3.5-5.3 [facility] Comment on above: Performed By: #### 2 4323-8 ####BHANU GREGORY L (33871)[facility] ([facility])[address]71 [place] [address] Protein [Mass/Vol] 5.8 g/dL Low 6.4-8.2 [facility] Comment on above: Performed By: #### 2 4323-8 ####BHANU GREGORY L (35247)[facility] ([facility])[address]24 [place] [address] Sodium [Moles/Vol] 138 mmol/L Normal 136-145 [facility] Comment on above: Performed By: #### 2 4323-8 ####BHANU GREGORY L (11825)[facility] ([facility])[address]16 [place] [address] Urea nitrogen [Mass/Vol] 8 mg/dL Normal 6-23 [facility] Comment on above: Performed By: #### 2 4323-8 ####BHANU Treviño (84297)[facility] ([facility])[address]15 [place] [address] Magnesiumon 01-23-2025 Magnesium [Mass/Vol] 1.98 mg/dL Normal 1.60-2.40 [facility] Comment on above: Performed By: #### 1 9123-9 ####BHANU Treviño (05641)[facility] ([facility])[address] [place] [address] CBC W Auto Differential pane l (Bld)on 01-22-2025 Basophils (Bld) [#/Vol] 0.07 x10*3/uL Normal 0.00-0.10 [facility] Comment on above: Performed By: #### 5 7021-8 ####BHANU Treviño (39398)[facility] ([facility])[address]196 [place] [address] Basophils/100 WBC (Bld) 0.8 % Normal 0.0-2.0 [facility] Comment on above: Performed By: #### 5 7021-8 ####BHANU GREGORY L (17915)[facility] ([facility])[address] [place] [address] Eosinophils (Bld) [#/Vol] 0.11 x10*3/uL Normal 0.00-0.70 [facility] Comment on above: Performed By: #### 5 7021-8 ####BHANU GREGORY L (23170)[facility] ([facility])[address]25 [place] [address] Eosinophils/100 WBC (Bld) 1.2 % Normal 0.0-6.0 [facility] Comment on above: Performed By: #### 5 7021-8 ####BHANU GREGORY L (07596)[facility] ([facility])[address] [place] [address] Erythrocyte distribution width (RBC) [Ratio] 19.7 % High 11.5-14.5 [facility] Comment on above: Performed By: #### 5 7021-8 ####BHANU Treviño (67189)[facility] ([facility])[address]96 [place] [address] Hematocrit (Bld) [Volume fraction] 27.5 % Low 41.0-52.0 [facility] Comment on above: Performed By: #### 5 7021-8 ####BHANU Treviño (06361)[facility] ([facility])[address]87 [place] [address] Hemoglobin (Bld) [Mass/Vol] 8.5 g/dL Low 13.5-17.5 [facility] Comment on above: Performed By: #### 5 7021-8 ####BHANU Treviño (35894)[facility] ([facility])[address] [place] [address] Immature granulocytes (Bld) [#/Vol] 0.03 x10*3/uL Normal 0.00-0.70 [facility] Comment on above: Performed By: #### 5 7021-8 ####BHANU Treviño (49596)[facility] ([facility])[address] [place] [address] Immature granulocytes/100 WBC (Bld) 0.3 % Normal 0.0-0.9 [facility] Comment on above: Result Comment: Christine ture Granulocyte Count (IG) includes promyelocytes, myelocytes and metamyelocytes but does not include bands. Percent differential counts (%) should be interpreted in the context of the absolute cell counts (cells/UL). Performed By: #### 5 7021-8 ####BHANU Treviño (85129)[facility] ([facility])[address] [place] [address] Lymphocytes (Bld) [#/Vol] 1.05 x10*3/uL Low 1.20-4.80 [facility] Comment on above: Performed By: #### 5 7021-8 ####BHANU Treviño (42693)[facility] ([facility])[address]79 [place] [address] Lymphocytes/100 WBC (Bld) 11.7 % Normal 13.0-44.0 [facility] Comment on above: Performed By: #### 5 7021-8 ####BHANU Treviño (19484)[facility] ([facility])[address]68 [place] [address] MCH (RBC) [Entitic mass] 23.8 pg Low 26.0-34.0 [facility] Comment on above: Performed By: #### 5 7021-8 ####BHANU Treviño (19040)[facility] ([facility])42086 [place] [address] MCHC (RBC) [Mass/Vol] 30.9 g/dL Low 32.0-36.0 [facility] Comment on above: Performed By: #### 5 7021-8 ####BHANU Treviño (52635)[facility] ([facility])[address]277 [place] [address] MCV (RBC) [Entitic vol] 77 fL Low 80-100 [facility] Comment on above: Performed By: #### 5 7021-8 ####BHANU Treviño (21814)[facility] ([facility])[address]240 [place] [address] Monocytes (Bld) [#/Vol] 1.01 x10*3/uL High 0.10-1.00 [facility] Comment on above: Performed By: #### 5 7021-8 ####BHANU Treviño (07862)[facility] ([facility])60282 [place] [address] Monocytes/100 WBC (Bld) 11.3 % Normal 2.0-10.0 [facility] Comment on above: Performed By: #### 5 7021-8 ####BHANU Treviño (45151)[facility] ([facility])[address]307 [place] [address] Neutrophils (Bld) [#/Vol] 6.68 x10*3/uL Normal 1.20-7.70 [facility] Comment on above: Result Comment: Perc ent differential counts (%) should be interpreted in the context of the absolute cell counts (cells/uL). Performed By: #### 5 7021-8 ####BHANU GREGORY L (52849)[facility] ([facility])[address]98 [place] [address] Neutrophils/100 WBC (Bld) 74.7 % Normal 40.0-80.0 [facility] Comment on above: Performed By: #### 5 7021-8 ####BHANU GREGORY L (05825)[facility] ([facility])[address]85 [place] [address] Nucleated RBC/100 WBC (Bld) [Ratio] 0.0 /100 WBCs Normal 0.0-0.0 [facility] Comment on above: Performed By: #### 5 7021-8 ####BHANU LAUREANOTZALANNA L (10357)[facility] ([facility])[address]267 [place] [address] Platelets (Bld) [#/Vol] 769 x10*3/uL High 150-450 [facility] Comment on above: Performed By: #### 5 7021-8 ####BHANU FLEMINGMOJOSEFA L (18251)[facility] ([facility])[address]108 [place] [address] RBC (Bld) [#/Vol] 3.57 x10*6/uL Low 4.50-5.90 [facility] Comment on above: Performed By: #### 5 7021-8 ####BHANU FLEMINGMOTZER L (34212)[facility] ([facility])67674 [place] [address] WBC (Bld) [#/Vol] 9.0 x10*3/uL Normal 4.4-11.3 [facility] Comment on above: Performed By: #### 5 7021-8 ####BHANU GREGORY L (55639)[facility] ([facility])[address]76 [place] [address] Basophils (Bld) [#/Vol] 0.06 x10*3/uL Normal 0.00-0.10 [facility] Comment on above: Performed By: #### 5 7021-8 ####BHANU GREGORY L (54524)[facility] ([facility])[address]862 [place] [address] Basophils/100 WBC (Bld) 0.7 % Normal 0.0-2.0 [facility] Comment on above: Performed By: #### 5 7021-8 ####BHANU GREGORY L (25935)[facility] ([facility])[address] [place] [address] Eosinophils (Bld) [#/Vol] 0.51 x10*3/uL Normal 0.00-0.70 [facility] Comment on above: Performed By: #### 5 7021-8 ####BHANU GREGORY L (69264)[facility] ([facility])[address]405 [place] [address] Eosinophils/100 WBC (Bld) 6.3 % Normal 0.0-6.0 [facility] Comment on above: Performed By: #### 5 7021-8 ####BHANU GREGORY L (07871)[facility] ([facility])[address]164 [place] [address] Erythrocyte distribution width (RBC) [Ratio] 19.9 % High 11.5-14.5 [facility] Comment on above: Performed By: #### 5 7021-8 ####BHANU GREGORY L (75568)[facility] ([facility])[address]31 [place] [address] Hematocrit (Bld) [Volume fraction] 26.6 % Low 41.0-52.0 [facility] Comment on above: Performed By: #### 5 7021-8 ####BHANU GREGORY L (97733)[facility] ([facility])[address]25 [place] [address] Hemoglobin (Bld) [Mass/Vol] 8.4 g/dL Low 13.5-17.5 [facility] Comment on above: Performed By: #### 5 7021-8 ####BHANU Treviño (53889)[facility] ([facility])[address]663 [place] [address] Immature granulocytes (Bld) [#/Vol] 0.05 x10*3/uL Normal 0.00-0.70 [facility] Comment on above: Performed By: #### 5 7021-8 ####BHANU Treviño (48740)[facility] ([facility])[address]01 [place] [address] Immature granulocytes/100 WBC (Bld) 0.6 % Normal 0.0-0.9 [facility] Comment on above: Result Comment: Christine ture Granulocyte Count (IG) includes promyelocytes, myelocytes and metamyelocytes but does not include bands. Percent differential counts (%) should be interpreted in the context of the absolute cell counts (cells/UL). Performed By: #### 5 7021-8 ####BHANU Treviño (22097)[facility] ([facility])[address]12 [place] [address] Lymphocytes (Bld) [#/Vol] 1.07 x10*3/uL Low 1.20-4.80 [facility] Comment on above: Performed By: #### 5 7021-8 ####BHANU Treviño (95889)[facility] ([facility])47759 [place] [address] Lymphocytes/100 WBC (Bld) 13.2 % Normal 13.0-44.0 [facility] Comment on above: Performed By: #### 5 7021-8 ####BHANU Treviño (89401)[facility] ([facility])[address]71 [place] [address] MCH (RBC) [Entitic mass] 24.3 pg Low 26.0-34.0 [facility] Comment on above: Performed By: #### 5 7021-8 ####BHANU Treviño (35113)[facility] ([facility])[address]94 [place] [address] MCHC (RBC) [Mass/Vol] 31.6 g/dL Low 32.0-36.0 [facility] Comment on above: Performed By: #### 5 7021-8 ####BHANU Treviño (74209)[facility] ([facility])[id number] [place] [address] MCV (RBC) [Entitic vol] 77 fL Low 80-100 [facility] Comment on above: Performed By: #### 5 7021-8 ####BHANU Treviño ([id number])[facility] ([facility])[id number] [place] [address] Monocytes (Bld) [#/Vol] 0.88 x10*3/uL Normal 0.10-1.00 [facility] Comment on above: Performed By: #### 5 7021-8 ####BHANU Treviño ([id number])[facility] ([facility])[address] [place] [address] Monocytes/100 WBC (Bld) 10.8 % Normal 2.0-10.0 [facility] Comment on above: Performed By: #### 5 7021-8 ####BHANU Treviño ([id number])[facility] ([facility])[address] [place] [address] Neutrophils (Bld) [#/Vol] 5.55 x10*3/uL Normal 1.20-7.70 [facility] Comment on above: Result Comment: Perc ent differential counts (%) should be interpreted in the context of the absolute cell counts (cells/uL). Performed By: #### 5 7021-8 ####BHANU Treviño ([id number])[facility] ([facility])[address] [place] [address] Neutrophils/100 WBC (Bld) 68.4 % Normal 40.0-80.0 [facility] Comment on above: Performed By: #### 5 7021-8 ####BHANU Treviño ([id number])[facility] ([facility])[address] [place] [address] Nucleated RBC/100 WBC (Bld) [Ratio] 0.0 /100 WBCs Normal 0.0-0.0 [facility] Comment on above: Performed By: #### 5 7021-8 ####BHANU Treviño ([id number])[facility] ([facility])[address] [place] [address] Platelets (Bld) [#/Vol] 713 x10*3/uL High 150-450 [facility] Comment on above: Performed By: #### 5 7021-8 ####BHANU Treviño ([id number])[facility] ([facility])[address] [place] [address] RBC (Bld) [#/Vol] 3.45 x10*6/uL Low 4.50-5.90 [facility] Comment on above: Performed By: #### 5 7021-8 ####BHANU Treviño (08452)[facility] ([facility])[address] [place] [address] WBC (Bld) [#/Vol] 8.1 x10*3/uL Normal 4.4-11.3 [facility] Comment on above: Performed By: #### 5 7021-8 ####BHANU Treviño ([id number])[facility] ([facility])[address] [place] [address] Comprehensive metabolic 2000 panelon 01-22-2025 Albumin BCP dye [Mass/Vol] 2.2 g/dL Low 3.4-5.0 [facility] Comment on above: Performed By: #### 2 4323-8 ####BHANU Treviño ([id number])[facility] ([facility])[address] [place] [address] ALP [Catalytic activity/Vol] 68 U/L Normal 33-120 [facility] Comment on above: Performed By: #### 2 4323-8 ####BHANU Treviño ([id number])[facility] ([facility])[address] [place] [address] ALT With P-5'-P [Catalytic activity/Vol] 34 U/L Normal 10-52 [facility] Comment on above: Result Comment: Sydni ents treated with Sulfasalazine may generate falsely decreased results for ALT. Performed By: #### 2 4323-8 ####BHANU Treviño (44575)[facility] ([facility])[address] [place] [address] Anion gap [Moles/Vol] 14 mmol/L Normal 10-20 [facility] Comment on above: Performed By: #### 2 4323-8 ####BHANU Treviño (46025)[facility] ([facility])[address] [place] [address] AST With P-5'-P [Catalytic activity/Vol] 57 U/L High 9-39 [facility] Comment on above: Performed By: #### 2 4323-8 ####BHANU Treviño ([id number])[facility] ([facility])[address]68 [place] [address] Bilirubin [Mass/Vol] 0.4 mg/dL Normal 0.0-1.2 [facility] Comment on above: Performed By: #### 2 4323-8 ####BHANU Treviño (53834)[facility] ([facility])[address] [place] [address] Calcium [Mass/Vol] 8.1 mg/dL Low 8.6-10.6 [facility] Comment on above: Performed By: #### 2 4323-8 ####BHANU Treviño (08351)[facility] ([facility])[address] [place] [address] Chloride [Moles/Vol] 103 mmol/L Normal 98-107 [facility] Comment on above: Performed By: #### 2 4323-8 ####BHANU Treviño (43419)[facility] ([facility])[address] [place] [address] CO2 [Moles/Vol] 27 mmol/L Normal 21-32 [facility] Comment on above: Performed By: #### 2 4323-8 ####BHANU GREGORY L (83740)[facility] ([facility])[address]30 [place] [address] Creatinine [Mass/Vol] 1.11 mg/dL Normal 0.50-1.30 [facility] Comment on above: Performed By: #### 2 4323-8 ####BHANU GREGORY L (27393)[facility] ([facility])[address] [place] [address] Glomerular filtration rate/1.73 sq M.predicted 80 mL/min/1.73m*2 Normal >60 [facility] Comment on above: Result Comment: Calc ulations of estimated GFR are performed using the 2020 CKD-EPI Study Refit equation without the race variable for the IDMS-Traceable creatinine methods.https://jasn.asnjournals.org/content/early/ /ASN.9268554912 Performed By: #### 2 4323-8 ####BHANU Treviño (69039)[facility] ([facility])[address] [place] [address] Glucose [Mass/Vol] 95 mg/dL Normal 74-99 [facility] Comment on above: Performed By: #### 2 4323-8 ####BHANU GREGORY L (33847)[facility] ([facility])[address]148 [place] [address] Potassium [Moles/Vol] 4.5 mmol/L Normal 3.5-5.3 [facility] Comment on above: Performed By: #### 2 4323-8 ####BHANU GREGORY L (81436)[facility] ([facility])[address] [place] [address] Protein [Mass/Vol] 5.4 g/dL Low 6.4-8.2 [facility] Comment on above: Performed By: #### 2 4323-8 ####BHANU Treviño (00975)[facility] ([facility])[address] [place] [address] Sodium [Moles/Vol] 139 mmol/L Normal 136-145 [facility] Comment on above: Performed By: #### 2 4323-8 ####BHANU Treviño ([id number])[facility] ([facility])[address] [place] [address] Urea nitrogen [Mass/Vol] 7 mg/dL Normal 6-23 [facility] Comment on above: Performed By: #### 2 4323-8 ####BHANU Treviño (76301)[facility] ([facility])[address] [place] [address] Creatine kinaseon 01-22-2025 CK [Catalytic activity/Vol] 21 U/L Normal 0-325 [facility] Comment on above: Performed By: #### 2 157-6 ####BHANU Treviño (11511)[facility] ([facility])[address] [place] [address] Magnesiumon 01-22-2025 Magnesium [Mass/Vol] 1.96 mg/dL Normal 1.60-2.40 [facility] Comment on above: Performed By: #### 1 9123-9 ####BHANU Treviño (87972)[facility] ([facility])[address] [place] [address] Blood type and Indirect anti body screen panel (Bld)on 01-21-2025 ABO group Nom (Bld) A Normal [facility] Comment on above: Performed By: #### 3 4532-2 ####BHANU Treviño (14430)[facility] [place] [address] Blood group antibody screen Ql Negative Normal [facility] Comment on above: Performed By: #### 3 4532-2 ####BHANU Treviño (56670)[facility] ([facility])[address] [place] [address] D Ag Ql (Bld) Positive [facility] Comment on above: Performed By: #### 3 4532-2 ####BHANU Treviño (74729)[facility] ([facility])[address] [place] [address] CBC W Auto Differential pane l (Bld)on 01-21-2025 Basophils (Bld) [#/Vol] 0.06 x10*3/uL Normal 0.00-0.10 [facility] Comment on above: Performed By: #### 5 7021-8 ####BHANU Treviño (66386)[facility] ([facility])[address] [place] [address] Basophils/100 WBC (Bld) 0.7 % Normal 0.0-2.0 [facility] Comment on above: Performed By: #### 5 7021-8 ####BHANU Treviño (09010)[facility] ([facility])[address] [place] [address] Eosinophils (Bld) [#/Vol] 0.24 x10*3/uL Normal 0.00-0.70 [facility] Comment on above: Performed By: #### 5 7021-8 ####BHANU Treviño (62288)[facility] ([facility])[address] [place] [address] Eosinophils/100 WBC (Bld) 2.7 % Normal 0.0-6.0 [facility] Comment on above: Performed By: #### 5 7021-8 ####BHANU Treviño (10112)[facility] ([facility])[address] [place] [address] Erythrocyte distribution width (RBC) [Ratio] 19.6 % High 11.5-14.5 [facility] Comment on above: Performed By: #### 5 7021-8 ####BHANU Treviño (89449)[facility] ([facility])[address] [place] [address] Hematocrit (Bld) [Volume fraction] 25.9 % Low 41.0-52.0 [facility] Comment on above: Performed By: #### 5 7021-8 ####BHANU Treviño (14964)[facility] ([facility])[address] [place] [address] Hemoglobin (Bld) [Mass/Vol] 8.3 g/dL Low 13.5-17.5 [facility] Comment on above: Performed By: #### 5 7021-8 ####BHANU Treviño (63356)[facility] ([facility])[address] [place] [address] 10665 Immature granulocytes (Bld) [#/Vol] 0.03 x10*3/uL Normal 0.00-0.70 [facility] Comment on above: Performed By: #### 5 7021-8 ####BHANU Treviño (98131)[facility] ([facility])[address] [place] [address]99 Immature granulocytes/100 WBC (Bld) 0.3 % Normal 0.0-0.9 [facility] Comment on above: Result Comment: Christine ture Granulocyte Count (IG) includes promyelocytes, myelocytes and metamyelocytes but does not include bands. Percent differential counts (%) should be interpreted in the context of the absolute cell counts (cells/UL). Performed By: #### 5 7021-8 ####BHANU Treviño (69621)[facility] ([facility])[address] [place] [address] Lymphocytes (Bld) [#/Vol] 1.18 x10*3/uL Low 1.20-4.80 [facility] Comment on above: Performed By: #### 5 7021-8 ####BHANU Treviño (43493)[facility] ([facility])[address] [place] [address], [place] [address] Lymphocytes/100 WBC (Bld) 13.5 % Normal 13.0-44.0 [facility] Comment on above: Performed By: #### 5 7021-8 ####BHANU Treviño (54220)[facility] ([facility])[address]004 [place] [address] MCH (RBC) [Entitic mass] 24.7 pg Low 26.0-34.0 [facility] Comment on above: Performed By: #### 5 7021-8 ####BHANU Treviño (59222)[facility] ([facility])[address]34 [place] [address] MCHC (RBC) [Mass/Vol] 32.0 g/dL Normal 32.0-36.0 [facility] Comment on above: Performed By: #### 5 7021-8 ####BHANU Treviño (13595)[facility] ([facility])[address] [place] [address]15[address] MCV (RBC) [Entitic vol] 77 fL Low 80-100 [facility] Comment on above: Performed By: #### 5 7021-8 ####BHANU Treviño (03238)[facility] ([facility])[address] [place] [address]9519 Monocytes (Bld) [#/Vol] 1.01 x10*3/uL High 0.10-1.00 [facility] Comment on above: Performed By: #### 5 7021-8 ####BHANU Treviño (58409)[facility] ([facility])[address]676 [place] [address] Monocytes/100 WBC (Bld) 11.5 % Normal 2.0-10.0 [facility] Comment on above: Performed By: #### 5 7021-8 ####BHANU Treviño (89482)[facility] ([facility])[address]257 [place] [address] Neutrophils (Bld) [#/Vol] 6.25 x10*3/uL Normal 1.20-7.70 [facility] Comment on above: Result Comment: Perc ent differential counts (%) should be interpreted in the context of the absolute cell counts (cells/uL). Performed By: #### 5 7021-8 ####BHANU Treviño (45514)[facility] ([facility])[address]42 [place] [address] Neutrophils/100 WBC (Bld) 71.3 % Normal 40.0-80.0 [facility] Comment on above: Performed By: #### 5 7021-8 ####BHANU Treviño (58536)[facility] ([facility])[address] [place] [address] Nucleated RBC/100 WBC (Bld) [Ratio] 0.0 /100 WBCs Normal 0.0-0.0 [facility] Comment on above: Performed By: #### 5 7021-8 ####BHANU Treviño (03063)[facility] ([facility])[address]674 [place] [address] Platelets (Bld) [#/Vol] 730 x10*3/uL High 150-450 [facility] Comment on above: Performed By: #### 5 7021-8 ####BHANU Treviño (95313)[facility] ([facility])[address] [place] [address] RBC (Bld) [#/Vol] 3.36 x10*6/uL Low 4.50-5.90 [facility] Comment on above: Performed By: #### 5 7021-8 ####BHANU Treviño (03104)[facility] ([facility])[address]01 [place] [address] WBC (Bld) [#/Vol] 8.8 x10*3/uL Normal 4.4-11.3 [facility] Comment on above: Performed By: #### 5 7021-8 ####BHANU Treviño (58539)[facility] ([facility])[address]77 [place] [address] Basophils (Bld) [#/Vol] 0.07 x10*3/uL Normal 0.00-0.10 [facility] Comment on above: Performed By: #### 5 7021-8 ####BHANU Treviño (90423)[facility] ([facility])[address]222 [place] [address] Basophils/100 WBC (Bld) 0.8 % Normal 0.0-2.0 [facility] Comment on above: Performed By: #### 5 7021-8 ####BHANU Treviño (73063)[facility] ([facility])[address] [place] [address]008 Eosinophils (Bld) [#/Vol] 0.16 x10*3/uL Normal 0.00-0.70 [facility] Comment on above: Performed By: #### 5 7021-8 ####BHANU Treviño (28581)[facility] ([facility])[address] [place] [address] Eosinophils/100 WBC (Bld) 1.7 % Normal 0.0-6.0 [facility] Comment on above: Performed By: #### 5 7021-8 ####BHANU Treviño (40671)[facility] ([facility])[address] [place] [address] Erythrocyte distribution width (RBC) [Ratio] 19.5 % High 11.5-14.5 [facility] Comment on above: Performed By: #### 5 7021-8 ####BHANU Treviño (76335)[facility] ([facility])[address] [place] [address] Hematocrit (Bld) [Volume fraction] 25.5 % Low 41.0-52.0 [facility] Comment on above: Performed By: #### 5 7021-8 ####BHANU Treviño (42069)[facility] ([facility])[address]136 [place] [address] Hemoglobin (Bld) [Mass/Vol] 8.3 g/dL Low 13.5-17.5 [facility] Comment on above: Performed By: #### 5 7021-8 ####BHANU Treviño (17194)[facility] ([facility])[address]191 [place] [address] Immature granulocytes (Bld) [#/Vol] 0.05 x10*3/uL Normal 0.00-0.70 [facility] Comment on above: Performed By: #### 5 7021-8 ####BHANU Treviño (11555)[facility] ([facility])[address]678 [place] [address] Immature granulocytes/100 WBC (Bld) 0.5 % Normal 0.0-0.9 [facility] Comment on above: Result Comment: Christine ture Granulocyte Count (IG) includes promyelocytes, myelocytes and metamyelocytes but does not include bands. Percent differential counts (%) should be interpreted in the context of the absolute cell counts (cells/UL). Performed By: #### 5 7021-8 ####BHANU Treviño (40577)[facility] ([facility])[address] [place] [address]26 Lymphocytes (Bld) [#/Vol] 0.99 x10*3/uL Low 1.20-4.80 [facility] Comment on above: Performed By: #### 5 7021-8 ####BHANU Treviño (79810)[facility] ([facility])[address]50 [place] [address] Lymphocytes/100 WBC (Bld) 10.8 % Normal 13.0-44.0 [facility] Comment on above: Performed By: #### 5 7021-8 ####BHANU Treviño (18857)[facility] ([facility])[address]005 [place] [address] MCH (RBC) [Entitic mass] 25.0 pg Low 26.0-34.0 [facility] Comment on above: Performed By: #### 5 7021-8 ####BHANU Treviño (51871)[facility] ([facility])[address]274 [place] [address] MCHC (RBC) [Mass/Vol] 32.5 g/dL Normal 32.0-36.0 [facility] Comment on above: Performed By: #### 5 7021-8 ####BHANU Treviño (70497)[facility] ([facility])[address]54 [place] [address] MCV (RBC) [Entitic vol] 77 fL Low 80-100 [facility] Comment on above: Performed By: #### 5 7021-8 ####BHANU Treviño (77594)[facility] ([facility])[address]30 [place] [address] Monocytes (Bld) [#/Vol] 1.02 x10*3/uL High 0.10-1.00 [facility] Comment on above: Performed By: #### 5 7021-8 ####BHANU Treviño (24175)[facility] ([facility])[address]05 [place] [address] Monocytes/100 WBC (Bld) 11.1 % Normal 2.0-10.0 [facility] Comment on above: Performed By: #### 5 7021-8 ####BHANU Treviño (87074)[facility] ([facility])[address]851 [place] [address] Neutrophils (Bld) [#/Vol] 6.90 x10*3/uL Normal 1.20-7.70 [facility] Comment on above: Result Comment: Perc ent differential counts (%) should be interpreted in the context of the absolute cell counts (cells/uL). Performed By: #### 5 7021-8 ####BHANU Treviño (56413)[facility] ([facility])[address]15 [place] [address] Neutrophils/100 WBC (Bld) 75.1 % Normal 40.0-80.0 [facility] Comment on above: Performed By: #### 5 7021-8 ####BHANU Treviño (67225)[facility] ([facility])[address]243 [place] [address] Nucleated RBC/100 WBC (Bld) [Ratio] 0.0 /100 WBCs Normal 0.0-0.0 [facility] Comment on above: Performed By: #### 5 7021-8 ####BHANU Treviño (61278)[facility] ([facility])[address]87 [place] [address] Platelets (Bld) [#/Vol] 690 x10*3/uL High 150-450 [facility] Comment on above: Performed By: #### 5 7021-8 ####BHANU Treviño (59204)[facility] ([facility])[address] [place] [address]87[address] RBC (Bld) [#/Vol] 3.32 x10*6/uL Low 4.50-5.90 [facility] Comment on above: Performed By: #### 5 7021-8 ####BHANU Treviño (75087)[facility] ([facility])[address] [place] [address] 21684 WBC (Bld) [#/Vol] 9.2 x10*3/uL Normal 4.4-11.3 [facility] Comment on above: Performed By: #### 5 7021-8 ####BHANU Treviño (39369)[facility] ([facility])[address] [place] [address] 92547 Comprehensive metabolic 2000 panelon 01-21-2025 Albumin BCP dye [Mass/Vol] 2.2 g/dL Low 3.4-5.0 [facility] Comment on above: Performed By: #### 2 4323-8 ####BHANU Treviño (86628)[facility] ([facility])[address]62 [place] [address] ALP [Catalytic activity/Vol] 62 U/L Normal 33-120 [facility] Comment on above: Performed By: #### 2 4323-8 ####BHANU Treviño (21015)[facility] ([facility])[address]702 [place] [address] ALT With P-5'-P [Catalytic activity/Vol] 24 U/L Normal 10-52 [facility] Comment on above: Result Comment: Sydni ents treated with Sulfasalazine may generate falsely decreased results for ALT. Performed By: #### 2 4323-8 ####BHANU GREGORY L (77443)[facility] ([facility])[address]30 [place] [address] Anion gap [Moles/Vol] 12 mmol/L Normal 10-20 [facility] Comment on above: Performed By: #### 2 4323-8 ####BHANU Treviño (06486)[facility] ([facility])[address]64 [place] [address] AST With P-5'-P [Catalytic activity/Vol] 40 U/L High 9-39 [facility] Comment on above: Performed By: #### 2 4323-8 ####BHANU Treviño (26471)[facility] ([facility])[address]65 [place] [address] Bilirubin [Mass/Vol] 0.4 mg/dL Normal 0.0-1.2 [facility] Comment on above: Performed By: #### 2 4323-8 ####BHANU Treviño (59438)[facility] ([facility])[address]3987 [place] [address] Calcium [Mass/Vol] 8.0 mg/dL Low 8.6-10.6 [facility] Comment on above: Performed By: #### 2 4323-8 ####BHANU GREGORY L (97631)[facility] ([facility])[address]33 [place] [address] Chloride [Moles/Vol] 104 mmol/L Normal 98-107 [facility] Comment on above: Performed By: #### 2 4323-8 ####BHANU Treviño (62488)[facility] ([facility])[address] [place] [address] CO2 [Moles/Vol] 26 mmol/L Normal 21-32 [facility] Comment on above: Performed By: #### 2 4323-8 ####BHANU Treviño (59480)[facility] ([facility])[address] [place] [address] Creatinine [Mass/Vol] 1.09 mg/dL Normal 0.50-1.30 [facility] Comment on above: Performed By: #### 2 4323-8 ####BHANU Treviño (02148)[facility] ([facility])[address]391 [place] [address] Glomerular filtration rate/1.73 sq M.predicted 82 mL/min/1.73m*2 Normal >60 [facility] Comment on above: Result Comment: Calc ulations of estimated GFR are performed using the 2020 CKD-EPI Study Refit equation without the race variable for the IDMS-Traceable creatinine methods.https://jasn.asnjournals.org/content/ /ASN.9937559521 Performed By: #### 2 4323-8 ####BHANU Treviño (33542)[facility] ([facility])[address]47 [place] [address] Glucose [Mass/Vol] 103 mg/dL High 74-99 [facility] Comment on above: Performed By: #### 2 4323-8 ####BHANU Treviño (26192)[facility] ([facility])[address]362 [place] [address] Potassium [Moles/Vol] 4.0 mmol/L Normal 3.5-5.3 [facility] Comment on above: Performed By: #### 2 4323-8 ####BHANU Treviño (04438)[facility] ([facility])[address]555 [place] [address] Protein [Mass/Vol] 6.1 g/dL Low 6.4-8.2 [facility] Comment on above: Performed By: #### 2 4323-8 ####BHANU Treviño (87070)[facility] ([facility])[address]13 [place] [address] Sodium [Moles/Vol] 138 mmol/L Normal 136-145 [facility] Comment on above: Performed By: #### 2 4323-8 ####BHANU Treviño (16731)[facility] ([facility])[address] [place] [address] Urea nitrogen [Mass/Vol] 7 mg/dL Normal 6-23 [facility] Comment on above: Performed By: #### 2 4323-8 ####BHANU Treviño (91265)[facility] ([facility])[address] [place] [address]484 Magnesiumon 01-21-2025 Magnesium [Mass/Vol] 1.92 mg/dL Normal 1.60-2.40 [facility] Comment on above: Performed By: #### 1 9123-9 ####BHANU Treviño (90892)[facility] ([facility])[address] [place] [address] 95886 CBC W Auto Differential pane l (Bld)on 01-20-2025 Basophils (Bld) [#/Vol] 0.06 x10*3/uL Normal 0.00-0.10 [facility] Comment on above: Performed By: #### 5 7021-8 ####BHANU Treviño (71352)[facility] ([facility])[address]48 [place] [address] Basophils/100 WBC (Bld) 0.6 % Normal 0.0-2.0 [facility] Comment on above: Performed By: #### 5 7021-8 ####BHANU Treviño (88464)[facility] ([facility])[address] [place] [address] Eosinophils (Bld) [#/Vol] 0.44 x10*3/uL Normal 0.00-0.70 [facility] Comment on above: Performed By: #### 5 7021-8 ####BHANU Treviño (87315)[facility] ([facility])[address] [place] [address] 75699 Eosinophils/100 WBC (Bld) 4.2 % Normal 0.0-6.0 [facility] Comment on above: Performed By: #### 5 7021-8 ####BHANU Treviño (39832)[facility] ([facility])[address] [place] [address] 50975 Erythrocyte distribution width (RBC) [Ratio] 19.6 % High 11.5-14.5 [facility] Comment on above: Performed By: #### 5 7021-8 ####BHANU Treviño (67740)[facility] ([facility])[address] [place] [id number] Hematocrit (Bld) [Volume fraction] 25.2 % Low 41.0-52.0 [facility] Comment on above: Performed By: #### 5 7021-8 ####BHANU Treviño ([id number])[facility] ([facility])[address] [place] [address] 37510 Hemoglobin (Bld) [Mass/Vol] 8.1 g/dL Low 13.5-17.5 [facility] Comment on above: Performed By: #### 5 7021-8 ####BHANU Treviño ([id number])[facility] ([facility])[id number] [place] [address]24 Immature granulocytes (Bld) [#/Vol] 0.05 x10*3/uL Normal 0.00-0.70 [facility] Comment on above: Performed By: #### 5 7021-8 ####BHANU Treviño ([id number])[facility] ([facility])[id number] [place] [address] 78561 Immature granulocytes/100 WBC (Bld) 0.5 % Normal 0.0-0.9 [facility] Comment on above: Result Comment: Christine ture Granulocyte Count (IG) includes promyelocytes, myelocytes and metamyelocytes but does not include bands. Percent differential counts (%) should be interpreted in the context of the absolute cell counts (cells/UL). Performed By: #### 5 7021-8 ####BHANU Treviño ([id number])[facility] ([facility])[address] [place] [address] Lymphocytes (Bld) [#/Vol] 1.24 x10*3/uL Normal 1.20-4.80 [facility] Comment on above: Performed By: #### 5 7021-8 ####BHANU Treviño ([id number])[facility] ([facility])[address] [place] [address] Lymphocytes/100 WBC (Bld) 11.8 % Normal 13.0-44.0 [facility] Comment on above: Performed By: #### 5 7021-8 ####BHANU Treviño ([id number])[facility] ([facility])[address] [place] [address] MCH (RBC) [Entitic mass] 24.7 pg Low 26.0-34.0 [facility] Comment on above: Performed By: #### 5 7021-8 ####BHANU Treviño ([id number])[facility] ([facility])[address] [place] [address] MCHC (RBC) [Mass/Vol] 32.1 g/dL Normal 32.0-36.0 [facility] Comment on above: Performed By: #### 5 7021-8 ####BHANU Treviño ([id number])[facility] ([facility])[address] [place] [address] MCV (RBC) [Entitic vol] 77 fL Low 80-100 [facility] Comment on above: Performed By: #### 5 7021-8 ####BHANU Treviño ([id number])[facility] ([facility])[address] [place] [address] Monocytes (Bld) [#/Vol] 1.16 x10*3/uL High 0.10-1.00 [facility] Comment on above: Performed By: #### 5 7021-8 ####BHANU Treviño ([id number])[facility] ([facility])[address] [place] [address] Monocytes/100 WBC (Bld) 11.0 % Normal 2.0-10.0 [facility] Comment on above: Performed By: #### 5 7021-8 ####BHANU Treviño ([id number])[facility] ([facility])[address] [place] [address] Neutrophils (Bld) [#/Vol] 7.58 x10*3/uL Normal 1.20-7.70 [facility] Comment on above: Result Comment: Perc ent differential counts (%) should be interpreted in the context of the absolute cell counts (cells/uL). Performed By: #### 5 7021-8 ####BHANU Treviño ([id number])[facility] ([facility])[address] [place] [address] Neutrophils/100 WBC (Bld) 71.9 % Normal 40.0-80.0 [facility] Comment on above: Performed By: #### 5 7021-8 ####BHANU Treviño ([id number])[facility] ([facility])[address] [place] [address] Nucleated RBC/100 WBC (Bld) [Ratio] 0.0 /100 WBCs Normal 0.0-0.0 [facility] Comment on above: Performed By: #### 5 7021-8 ####BHANU FLEMINGMOTZER L ([id number])[facility] ([facility])[address] [place] [address] Platelets (Bld) [#/Vol] 731 x10*3/uL High 150-450 [facility] Comment on above: Performed By: #### 5 7021-8 ####BHANU FLEMINGMOJOSEFA L ([id number])[facility] ([facility])[address] [place] [address] RBC (Bld) [#/Vol] 3.28 x10*6/uL Low 4.50-5.90 [facility] Comment on above: Performed By: #### 5 7021-8 ####BHANU Treviño ([id number])[facility] ([facility])[address] [place] [address] WBC (Bld) [#/Vol] 10.5 x10*3/uL Normal 4.4-11.3 [facility] Comment on above: Performed By: #### 5 7021-8 ####BHANU GREGORY L ([id number])[facility] ([facility])[address]65 [place] [address] Basophils (Bld) [#/Vol] 0.06 x10*3/uL Normal 0.00-0.10 [facility] Comment on above: Performed By: #### 5 7021-8 ####BHANU GREGORY L ([id number])[facility] ([facility])[address] [place] [address] Basophils/100 WBC (Bld) 0.6 % Normal 0.0-2.0 [facility] Comment on above: Performed By: #### 5 7021-8 ####BHANU FLEMINGMOJOSEFA L ([id number])[facility] ([facility])[address] [place] [address] Eosinophils (Bld) [#/Vol] 0.50 x10*3/uL Normal 0.00-0.70 [facility] Comment on above: Performed By: #### 5 7021-8 ####BHANU FLEMINGMOJOSEFA L ([id number])[facility] ([facility])[address] [place] [address] Eosinophils/100 WBC (Bld) 5.2 % Normal 0.0-6.0 [facility] Comment on above: Performed By: #### 5 7021-8 ####BHANU FLEMINGMOJOSEFA L ([id number])[facility] ([facility])[address] [place] [address] Erythrocyte distribution width (RBC) [Ratio] 19.6 % High 11.5-14.5 [facility] Comment on above: Performed By: #### 5 7021-8 ####BHANU Treviño ([id number])[facility] ([facility])[address] [place] [address] Hematocrit (Bld) [Volume fraction] 25.2 % Low 41.0-52.0 [facility] Comment on above: Performed By: #### 5 7021-8 ####BHANU Treviño ([id number])[facility] ([facility])[address] [place] [address] Hemoglobin (Bld) [Mass/Vol] 7.9 g/dL Low 13.5-17.5 [facility] Comment on above: Performed By: #### 5 7021-8 ####BHANU Treviño ([id number])[facility] ([facility])[address] [place] [address] Immature granulocytes (Bld) [#/Vol] 0.08 x10*3/uL Normal 0.00-0.70 [facility] Comment on above: Performed By: #### 5 7021-8 ####BHANU Treviño ([id number])[facility] ([facility])[address] [place] [address] Immature granulocytes/100 WBC (Bld) 0.8 % Normal 0.0-0.9 [facility] Comment on above: Result Comment: Christine ture Granulocyte Count (IG) includes promyelocytes, myelocytes and metamyelocytes but does not include bands. Percent differential counts (%) should be interpreted in the context of the absolute cell counts (cells/UL). Performed By: #### 5 7021-8 ####BHANU Treviño ([id number])[facility] ([facility])[address] [place] [address] Lymphocytes (Bld) [#/Vol] 1.26 x10*3/uL Normal 1.20-4.80 [facility] Comment on above: Performed By: #### 5 7021-8 ####BHANU Treviño ([id number])[facility] ([facility])[address] [place] [address] Lymphocytes/100 WBC (Bld) 13.1 % Normal 13.0-44.0 [facility] Comment on above: Performed By: #### 5 7021-8 ####BHANU Treviño ([id number])[facility] ([facility])[address]39 [place] [address] MCH (RBC) [Entitic mass] 24.7 pg Low 26.0-34.0 [facility] Comment on above: Performed By: #### 5 7021-8 ####BHANU Treviño ([id number])[facility] ([facility])[address] [place] [address] MCHC (RBC) [Mass/Vol] 31.3 g/dL Low 32.0-36.0 [facility] Comment on above: Performed By: #### 5 7021-8 ####HBANU Treviño ([id number])[facility] ([facility])[address]187 [place] [address] MCV (RBC) [Entitic vol] 79 fL Low 80-100 [facility] Comment on above: Performed By: #### 5 7021-8 ####BHANU Treviño ([id number])[facility] ([facility])[address]69 [place] [address] Monocytes (Bld) [#/Vol] 1.08 x10*3/uL High 0.10-1.00 [facility] Comment on above: Performed By: #### 5 7021-8 ####BHANU Treviño ([id number])[facility] ([facility])[address] [place] [address] Monocytes/100 WBC (Bld) 11.3 % Normal 2.0-10.0 [facility] Comment on above: Performed By: #### 5 7021-8 ####BHANU Treviño ([id number])[facility] ([facility])[address]454 [place] [address] Neutrophils (Bld) [#/Vol] 6.62 x10*3/uL Normal 1.20-7.70 [facility] Comment on above: Result Comment: Perc ent differential counts (%) should be interpreted in the context of the absolute cell counts (cells/uL). Performed By: #### 5 7021-8 ####BHANU GREGORY L ([id number])[facility] ([facility])[address] [place] [address] Neutrophils/100 WBC (Bld) 69.0 % Normal 40.0-80.0 [facility] Comment on above: Performed By: #### 5 7021-8 ####BHANU GREGORY L ([id number])[facility] ([facility])[address]78 [place] [address] Nucleated RBC/100 WBC (Bld) [Ratio] 0.0 /100 WBCs Normal 0.0-0.0 [facility] Comment on above: Performed By: #### 5 7021-8 ####BHANU FLEMINGMOTZER L ([id number])[facility] ([facility])[address]28 [place] [address] Platelets (Bld) [#/Vol] 689 x10*3/uL High 150-450 [facility] Comment on above: Performed By: #### 5 7021-8 ####BHANU FLEMINGMOTZALANNA L ([id number])[facility] ([facility])[address] [place] [address] RBC (Bld) [#/Vol] 3.20 x10*6/uL Low 4.50-5.90 [facility] Comment on above: Performed By: #### 5 7021-8 ####BHANU FLEMINGMOTZER L ([id number])[facility] ([facility])[address] [place] [address] WBC (Bld) [#/Vol] 9.6 x10*3/uL Normal 4.4-11.3 [facility] Comment on above: Performed By: #### 5 7021-8 ####BHANU Treviño ([id number])[facility] ([facility])[address]166 [place] [address] Comprehensive metabolic 2000 panelon 01-20-2025 Albumin BCP dye [Mass/Vol] 2.2 g/dL Low 3.4-5.0 [facility] Comment on above: Performed By: #### 2 4323-8 ####BHANU Treviño ([id number])[facility] ([facility])[address] [place] [address] ALP [Catalytic activity/Vol] 62 U/L Normal 33-120 [facility] Comment on above: Performed By: #### 2 4323-8 ####BHANU Treviño ([id number])[facility] ([facility])[address] [place] [address] ALT With P-5'-P [Catalytic activity/Vol] 18 U/L Normal 10-52 [facility] Comment on above: Result Comment: Sydni ents treated with Sulfasalazine may generate falsely decreased results for ALT. Performed By: #### 2 4323-8 ####BHANU Treviño ([id number])[facility] ([facility])[address] [place] [address] Anion gap [Moles/Vol] 11 mmol/L Normal 10-20 [facility] Comment on above: Performed By: #### 2 4323-8 ####BHANU Treviño ([id number])[facility] ([facility])[address]70 [place] [address] AST With P-5'-P [Catalytic activity/Vol] 30 U/L Normal 9-39 [facility] Comment on above: Performed By: #### 2 4323-8 ####BHANU Treviño ([id number])[facility] ([facility])[address]172 [place] [address] Bilirubin [Mass/Vol] 0.3 mg/dL Normal 0.0-1.2 [facility] Comment on above: Performed By: #### 2 4323-8 ####BHANU GREGORY L ([id number])[facility] ([facility])[address]15 [place] [address] Calcium [Mass/Vol] 7.9 mg/dL Low 8.6-10.6 [facility] Comment on above: Performed By: #### 2 4323-8 ####BHANU MATOSER L ([id number])[facility] ([facility])[address]83 [place] [address] Chloride [Moles/Vol] 106 mmol/L Normal 98-107 [facility] Comment on above: Performed By: #### 2 4323-8 ####BHANU GREGORY L ([id number])[facility] ([facility])[address]18 [place] [address] CO2 [Moles/Vol] 26 mmol/L Normal 21-32 [facility] Comment on above: Performed By: #### 2 4323-8 ####BHANU GREGORY L ([id number])[facility] ([facility])[address]94 [place] [address] Creatinine [Mass/Vol] 1.08 mg/dL Normal 0.50-1.30 [facility] Comment on above: Performed By: #### 2 4323-8 ####BHANU GREGORY L ([id number])[facility] ([facility])[address]65 [place] [address] Glomerular filtration rate/1.73 sq M.predicted 83 mL/min/1.73m*2 Normal >60 [facility] Comment on above: Result Comment: Calc ulations of estimated GFR are performed using the 2020 CKD-EPI Study Refit equation without the race variable for the IDMS-Traceable creatinine methods.https://jasn.asnjournals.org/content/early /ASN.2754287265 Performed By: #### 2 4323-8 ####BHANU LAUREANOTZER L (07862)[facility] ([facility])[address] [place] [address] Glucose [Mass/Vol] 100 mg/dL High 74-99 [facility] Comment on above: Performed By: #### 2 4323-8 ####BHANU Treviño ([id number])[facility] ([facility])[address] [place] [address] Potassium [Moles/Vol] 3.8 mmol/L Normal 3.5-5.3 [facility] Comment on above: Performed By: #### 2 4323-8 ####BHANU Treviño ([id number])[facility] ([facility])[address]19 [place] [address] Protein [Mass/Vol] 5.5 g/dL Low 6.4-8.2 [facility] Comment on above: Performed By: #### 2 4323-8 ####BHANU Treviño ([id number])[facility] ([facility])[address] [place] [address] Sodium [Moles/Vol] 139 mmol/L Normal 136-145 [facility] Comment on above: Performed By: #### 2 4323-8 ####BHANU Treviño ([id number])[facility] ([facility])[address] [place] [address] Urea nitrogen [Mass/Vol] 7 mg/dL Normal 6-23 [facility] Comment on above: Performed By: #### 2 4323-8 ####BHANU Treviño ([id number])[facility] ([facility])[address] [place] [address] Magnesiumon 01-20-2025 Magnesium [Mass/Vol] 1.94 mg/dL Normal 1.60-2.40 [facility] Comment on above: Performed By: #### 1 9123-9 ####BHANU Treviño ([id number])[facility] ([facility])[address] [place] [address] RBC shape Nom (Bld)on 2024 Hypochromia Ql (Bld) Mild Normal [facility] Comment on above: Performed By: #### 1 8225-3 ####BHANU Treviño ([id number])[facility] ([facility])[address] [place], [place] [address] RBC morphology finding Nom (Bld) See Below Normal [facility] Comment on above: Performed By: #### 1 8225-3 ####BHANU Treviño ([id number])[facility] ([facility])[address] [place] [address] CBC W Auto Differential pane l (Bld)on 01-19-2025 Basophils (Bld) [#/Vol] 0.05 x10*3/uL Normal 0.00-0.10 [facility] Comment on above: Performed By: #### 5 7021-8 ####BHANU Treviño ([id number])[facility] ([facility])[address] [place] [address] Basophils/100 WBC (Bld) 0.5 % Normal 0.0-2.0 [facility] Comment on above: Performed By: #### 5 7021-8 ####BHANU Treviño ([id number])[facility] ([facility])[address] [place], [place] [address] No Panel Informationon 01-13 Actual Fractions Delivered 5 [facility] Actual Session Delivered Dose 400 cGray [facility] Actual Total Dose 2000 cGray [facility] Course Number 1 [facility] Elapsed Days 6 [facility] Last Date 01/13/2025 [facility] Prescribed Fractional Dose 400 cGray [facility] Prescribed Number of Fractions 5 [facility] Prescribed Technique 3D [facility] Prescribed Total Dose 2000 cGray [facility] Prescription Pattern Comment 1 cm bolus [facility] Start Date 01/07/2025 [facility] Treatment Site L [facility] [place] yon 01-10-2025 Actual Fractions Delivered 4 [facility] Actual Session Delivered Dose 400 cGray [facility] Actual Total Dose 1600 [facility]Gray [facility] Course Number 1 [facility] Elapsed Days 3 [facility] Last Date 01/10/2025 [facility] Prescribed Fractional Dose 400 cGray [facility] Prescribed Number of Fractions 5 [facility] Prescribed Technique 3D [facility] Prescribed Total Dose 2000 cGray [facility] Prescription Pattern Comment 1 cm bolus [facility] Start Date 01/07/2025 [facility] Treatment Site L [facility] Rad Onc Msq Treatment [place] yon 01-09-2025 Actual Fractions Delivered 3 [facility] Actual Session Delivered Dose 400 cGray [facility] Actual Total Dose 1200 [facility]Gray [facility] Course Number 1 [facility] Elapsed Days 2 [facility] Last Date 01/09/2025 [facility] Prescribed Fractional Dose 400 cGray [facility] Prescribed Number of Fractions 5 [facility] Prescribed Technique 3D [facility] Prescribed Total Dose 2000 cGray [facility] Prescription Pattern Comment 1 cm bolus [facility] Start Date 01/07/2025 [facility] Treatment Site L [facility] Onc Msq Treatment [place] 01-08-2025 Actual Fractions Delivered 2 [facility] Actual Session Delivered Dose 400 cGray [facility] Actual Total Dose 800 [facility]Gray [facility] Course Number 1 [facility] Elapsed Days 1 [facility] Last Date 01/08/2025 [facility] Prescribed Fractional Dose 400 cGray [facility] Prescribed Number of Fractions 5 [facility] Prescribed Technique 3D [facility] Prescribed Total Dose 2000 cGray [facility] Prescription Pattern Comment 1 cm bolus [facility] Start Date 01/07/2025 [facility] Treatment Site L [facility] No Panel Informationon 01-02 These images [...] maintained or improved Outcome: Adequate for Discharge [facility] 30 Problem: Knowledge Deficit Goal: [...] family/caregiver to ask for assistance with transferring infant if caregiver noted to have fall risk factors Problem: Discharge Planning Goal: Discharge to home or other facility with appropriate resources 12/24/2024104 by Diana Wise RN Outcome: Progressing 12/24/2024103 by Diana Wise RN Outcome: Progressing 12/23/20242013 by Diana Wise RN Outcome: Progressing Problem: Chronic Conditions and Co-morbidities Goal: Patient's chronic conditions and co-morbidity symptoms are monitored and maintained or improved 12/24/2024104 by Diana Wsie RN Outcome: Progressing 12/24/2024103 by Diana Wise RN Outcome: Progressing 12/23/20242013 by Diana Wise RN Outcome: Progressing Normal [facility] BASIC METABOLIC PANELon 04-0 Anion gap [Moles/Vol] 7 mmol/L Normal 3-13 [facility] Comment on above: Performed By: #### L AB15 ####Information Lead: JAZLYN JIMENEZ ([id number])[facility] ([facility])[address] [place] [address] Calcium [Mass/Vol] 10.3 mg/dL High 8.4-10.2 [facility] Comment on above: Performed By: #### L AB15 ####Information Lead: JAZLYN JIMENEZ ([id number])[facility] [place] [address] Chloride [Moles/Vol] 108 mmol/L High 98-107 [facility] Comment on above: Performed By: #### L AB15 ####Information Lead: JAZLYN JIMENEZ ([id number])[facility])[address] [place] [address] CO2 [Moles/Vol] 24 mmol/L Normal 22-29 [facility] Comment on above: Performed By: #### L AB15 ####Information Lead: JAZLYN JIMENEZ ([id number])[facility])[address] [place] [address] Creatinine [Mass/Vol] 1.04 mg/dL Normal 0.72-1.25 [facility] Comment on above: Performed By: #### L AB15 ####Information Lead: JAZLYN JIMENEZ ([id number])[facility])[address] [place] [address] GLOMERULAR FILTRATION RATE ML/MIN/1.73 SQ M.PREDICTED 86.9 mL/min/1.73m*2 Normal >60.0 [facility] Comment on above: Result Comment: Calc ulation based on the Chronic Kidney Disease Epidemiology Collaboration (CKD-EPI) equation refit without adjustment for race Performed By: #### L AB15 ####Information Lead: JAZLYN JIMENEZ ([id number])[facility])[address] [place] [address] Glucose [Mass/Vol] 97 mg/dL Normal 74-100 [facility] Comment on above: Performed By: #### L AB15 ####Information Lead: JAZLYN JIMENEZ ([id number])[facility])[address] [place] [address] Potassium [Moles/Vol] 3.7 mmol/L Normal 3.5-5.1 [facility] Comment on above: Result Comment: [facility] potassium values may be up to 0.5 mmol/L lower than serum values. Performed By: #### L AB15 ####Information Lead: JAZLYN JIMENEZ ([id number])[facility])[address] [place] [address] Sodium [Moles/Vol] 139 mmol/L Normal 136-145 [facility] Comment on above: Performed By: #### L AB15 ####Information Lead: JAZLYN JIMENEZ ([id number])[address] Urea nitrogen [Mass/Vol] 7 mg/dL Low 9-23 [facility] Comment on above: Performed By: #### L AB15 ####Information Lead: JAZLYN JIMENEZ ([id number])[facility] ([facility])[address] [place] [address] Basic metabolic 1998 panelOr dered By: Eboni Camacho on 12-24-2024 Anion gap [Moles/Vol] 7 mmol/L 3 - 13 mmol/L [facility] Calcium [Mass/Vol] 10.3 mg/dL High 8.4 - 10. 2 mg/dL [facility] Chloride [Moles/Vol] 108 mmol/L High 98 - 10 7 mmol/L [facility] CO2 [Moles/Vol] 24 mmol/L 22 - 29 mmol/L [facility] Creatinine [Mass/Vol] 1.04 mg/dL 0.72 - 1.25 mg/dL [facility] GFR/1.73 sq M.predicted (S/P/Bld) [Vol rate/Area] 86.9 mL/min - PINF [facility] Comment on above: Calculation based on the Chronic Kidney Disease Epidemiology Collaboration (CKD-EPI) equation refit without adjustment for race Glucose [Mass/Vol] 97 mg/dL 74 - 100 mg/dL [facility] Interpretation and review of laboratory results Abnormal [facility] Potassium [Moles/Vol] 3.7 mmol/L 3.5 - 5.1 mmol/L [facility] Comment on above: Plasma potassium jeri ues may be up to 0.5 mmol/L lower than serum values. Sodium [Moles/Vol] 139 mmol/L 136 - 145 mmol/L [facility] Urea nitrogen [Mass/Vol] 7 mg/dL Low 9 - 23 mg/d L [facility] CBC W Auto Differential pane l (Bld)on 12-24-2024 Basophils (Bld) [#/Vol] 0.1 10*3/uL 0.0 - 0.2 10*3/uL [facility] Basophils/100 WBC (Bld) 0.5 % 0.0 - 2.0 % [facility] Eosinophils (Bld) [#/Vol] 0.8 10*3/uL High 0.0 - 0.5 10*3/uL [facility] Eosinophils/100 WBC (Bld) 5.7 % 0.0 - 6.0 % [facility] Erythrocyte distribution width (RBC) [Ratio] 17.5 % High 11.5 - 15.0 % [facility] Hematocrit (Bld) [Volume fraction] 23 % Low 40.0 - 52.0 % [facility] Hemoglobin (Bld) [Mass/Vol] 7.1 g/dL Low 13.0 - 18.0 g/dL [facility] Immature granulocytes (Bld) [#/Vol] 0.1 10*3/uL High NINF - 0.1 10*3/uL [facility] Immature granulocytes/100 WBC (Bld) 0.4 % 0.0 - 2.0 % [facility] Interpretation and review of laboratory results Abnormal [facility] Lymphocytes (Bld) [#/Vol] 1.5 10*3/uL 1.0 - 4.3 10*3/uL [facility] Lymphocytes/100 WBC (Bld) 9.9 % Low 15.0 - 45.0 % [facility] MCH (RBC) [Entitic mass] 24.6 pg Low 26. 0 - 34.0 pg [facility] MCHC (RBC) [Mass/Vol] 30.9 % 30.5 - 36.0 % [facility] MCV (RBC) [Entitic vol] 79.6 fL 77.0 - 99.0 fL [facility] Monocytes (Bld) [#/Vol] 1.4 10*3/uL High 0.0 - 0.9 10*3/uL [facility] Monocytes/100 WBC (Bld) 9.4 % 5.0 - 13.0 % [facility] Neutrophils (Bld) [#/Vol] 11 10*3/uL High 1.8 - 7.5 10*3/uL [facility] Neutrophils/100 WBC (Bld) 74.1 % 38.0 - 82.0 % [facility] Nucleated RBC/100 WBC (Bld) [Ratio] 0 % [facility] Platelet mean volume (Bld) [Entitic vol] 8.8 fL Low 9.0 - 12.7 fL [facility] Platelets (Bld) [#/Vol] 577 10*3/uL High 140 - 440 10*3/uL [facility] RBC (Bld) [#/Vol] 2.89 10*6/uL Low 4.40 - 5.9 0 10*6/uL [facility] WBC (Bld) [#/Vol] 14.8 10*3/uL High 3.6 - 10.7 10*3/uL [facility] [facility] WITH AUTO DIFFERENTIALon 12-24-2024 Basophils (Bld) [#/Vol] 0.1 10*3/uL Normal 0.0-0.2 [facility] Comment on above: Performed By: #### L [id number] ####Information Lead: JAZLYN JIMENEZ ([id number])[facility] ([facility])[address] [place] [address] Basophils/100 WBC (Bld) 0.5 % Normal 0.0-2.0 [facility] Comment on above: Performed By: #### L [id number] ####Information Lead: JAZLYN JIMENEZ ([id number])[facility] ([facility])[address] [place] [address] [place] Eosinophils (Bld) [#/Vol] 0.8 10*3/uL High 0.0-0.5 [facility] Comment on above: Performed By: #### L [id number] ####Information Lead: JAZLYN JIMENEZ ([id number])[facility] ([facility])[address] [place] [address] [place] Eosinophils/100 WBC (Bld) 5.7 % Normal 0.0-6.0 [facility] Comment on above: Performed By: #### L [id number] ####Information Lead: JAZLYN JIMENEZ ([id number])[facility])[address] [place] [address] Erythrocyte distribution width (RBC) [Ratio] 17.5 % High 11.5-15.0 [facility] Comment on above: Performed By: #### L [id number] ####Information Lead: JAZLYN JIMENEZ ([id number])[facility])[address] [place] [address] Hematocrit (Bld) [Volume fraction] 23.0 % Low 40.0-52.0 [facility] Comment on above: Performed By: #### L [id number] ####Information Lead: JAZLYN JIMENEZ ([id number])[facility])[address] [place] [address] Hemoglobin (Bld) [Mass/Vol] 7.1 g/dL Low 13.0-18.0 [facility] Comment on above: Performed By: #### L [id number] ####Information Lead: JAZLYN JIMENEZ ([id number])[facility])[address] [place] [address] IMMATURE GRANS % 0.4 % Normal 0.0-2.0 [facility] Comment on above: Performed By: #### L [id number] ####Information Lead: JAZLYN JIMENEZ ([id number])[facility])[address] [place] [address] IMMATURE GRANS ABSOLUTE 0.1 10*3/uL High <0.1 [facility] Comment on above: Performed By: #### L [id number] ####Information Lead: JAZLYN JIMENEZ ([id number])[facility])[address] [place] [address] Lymphocytes (Bld) [#/Vol] 1.5 10*3/uL Normal 1.0-4.3 [facility] Comment on above: Performed By: #### L [id number] ####Information Lead: JAZLYN JIMENEZ ([id number])[facility])[address] [place] [address] Lymphocytes/100 WBC (Bld) 9.9 % Low 15.0-45.0 [facility] Comment on above: Performed By: #### L [id number] ####Information Lead: JAZLYN JIMENEZ ([id number])[facility])[address] [place] [address] MCH (RBC) [Entitic mass] 24.6 pg Low 26.0-34.0 [facility] Comment on above: Performed By: #### L [id number] ####Information Lead: JAZLYN JIMENEZ ([id number])[facility])[address] [place] [address] MCHC 30.9 % Normal 30.5-36.0 [facility] Comment on above: Performed By: #### L [id number] ####Information Lead: JAZLYN JIMENEZ ([id number])[facility])[address] [place] [address] MCV (RBC) [Entitic vol] 79.6 fL Normal 77.0-99.0 S [facility] Comment on above: Performed By: #### L [id number] ####Information Lead: JAZLYN JIMENEZ ([id number])[facility])[address] [place] [address] Monocytes (Bld) [#/Vol] 1.4 10*3/uL High 0.0-0.9 [facility] Comment on above: Performed By: #### L [id number] ####Information Lead: JAZLYN JIMENEZ ([id number])[facility])[address] [place] [address] Monocytes/100 WBC (Bld) 9.4 % Normal 5.0-13.0 [facility] Comment on above: Performed By: #### L [id number] ####Information Lead: JAZLYN JIEMNEZ ([id number])[facility])[address] [place] [address] NEUTROPHILS ABSOLUTE 11.0 10*3/uL High 1.8-7.5 [facility] Comment on above: Performed By: #### L [id number] ####Information Lead: JAZLYN JIMENEZ ([id number])[facility])[address] [place] [address] Neutrophils/100 WBC (Bld) 74.1 % Normal 38.0-82.0 [facility] Comment on above: Performed By: #### L [id number] ####Information Lead: JAZLYN JIMENEZ ([id number])[facility])[address] [place] [address] NRBC 0.0 /100 WBCs Normal 0.0-2.0 [facility] Comment on above: Performed By: #### L [id number] ####Information Lead: JAZLYN JIMENEZ ([id number])[facility])[address] [place] [address] Platelet mean volume (Bld) [Entitic vol] 8.8 fL Low 9.0-12.7 [facility] Comment on above: Performed By: #### L [id number] ####Information Lead: JAZLYN JIMENEZ ([id number])[facility])[address] [place] [address] Platelets (Bld) [#/Vol] 577 10*3/uL High 140-440 [facility] Comment on above: Performed By: #### L [id number] ####Information Lead: JAZLYN JIMENEZ ([id number])[facility])[address] [place] [address] RBC (Bld) [#/Vol] 2.89 10*6/uL Low 4.40-5.90 [facility] Comment on above: Performed By: #### L [id number] ####Information Lead: JAZLYN JIMENEZ ([id number])[facility])[address] [place] [address] WBC (Bld) [#/Vol] 14.8 10*3/uL High 3.6-10.7 [facility] Comment on above: Performed By: #### L [id number] ####Information Lead: JAZLYN JIEMNEZ ([id number])[facility])[address] [place] [address] Consulton 12-24-2024 Consult [facility] Wound Care CONSULT Note Kevan La [...] taken Received zosyn, vancomycin and fluids. [facility] accepted him but waiting on bed until later this afternoon. Pt states he was dropped off here from [facility] as it was the closest hospital. [...] (98 ?F) (Temporal) Resp 15 Ht 6' 7.02 (2.007 m) Wt 198 lb 6.6 oz (90 kg) SpO2 97% BMI 22.34 kg/m? PHYSICAL EXAM General appearance: in no apparent distress, alert, and oriented times 3 Skin: warm and dry Pulmonary: Normal effort, no respiratory distress, no cyanosis Left hip/post thigh: [id number]. Wound beds with pink tissue and slough. [...] 1.04 12/24/2024 PT/INR: No results found for: PROTIME, INR Prealbumin: No results found for: PREALBUMIN Albumin:No components found for: LABALBU Sed Rate:No results found for: SEDRATE Micro: No components found for: BC Assessment/Plan: Nursing staff to perform dressing change: Left hip/post thigh: Squamous Cell Carcinoma -Cleanse with dakins soaked gauze. Pack wet to dry dakins soaked gauze, cover with ABD pads BID and PRN Nutritional support Wound Care to follow Recommend to follow up at [facility] Outpatient wound care center after hospital discharge. Any questions or concerns please secure chat [facility] wound/ostomy. Thank you for the consult! I personally [...] my own independent evaluation of this patient. [facility] Nursing Noteon 12-24-2024 Nursing Note See new oxy 5 mg one time dose order [facility] Nursing Note Attending secure chatted due to patient asking for PRN pain meds with soft BP's. Awaiting answer [facility] Nursing Note Called and this nurse gave report to Lori NEWTON for patient. P/U time still 1230. Patient updated. [facility] Nursing Note Call received from . Patient has bed waiting at [facility] room [facility]. Nurse to nurse report number [phone]. Social work to arrange transportation in AM. Patient notified [facility] 30on 12-23-2024 30 Problem: Knowledge Deficit [...] monitored and maintained or improved Outcome: Progressing [facility] Consulton 12-23-2024 Consult Attestation signed by Noah Stewart DO at 12/23/2024 7:11 PM I have personally performed a [id number] diagnostic evaluation on this patient on date of service 12/23/24. History, labs, imaging studies, and electronic medical record have been reviewed by me. This note documented by the []Critical Care Fellow [x]boilerhouse mechanic []BRITTNEY reflects my history, exam, and medical decision making. I have reviewed and agree with the care plan. Changes were made in the orders as necessary. ROS documentation was reviewed and negative unless otherwise stated in HPI. Additional pertinent interval history, ROS, and physical exam findings: AdmitDate = 12/22/2024 LOS: 0 Brought to ER from [facility] with concern for worsening left hip wound [...] hip and hidradenitis suppurativa who presented to [facility] 12/22 from [facility] for increased drainage and malodor of L hip wound. He is awaiting transfer to [facility]. Of note, patient recently hospitalized at 12/07 - 12/17 and was discharged to [facility] on Augmentin through 01/12. He had [...] Resource Strain: Medium Risk (12/07/2024) Received from [facility] Overall Financial Resource Strain (CARDIA) Difficulty of Paying Living Expenses: Somewhat hard Food Insecurity: No Food Insecurity (12/07/2024) Received from [facility] Hunger Vital Sign Worried About Running Out of Food in the Last Year: Never true Ran Out of Food in the Last Year: Never true Recent Concern: Food Insecurity - Food Insecurity Present (10/11/2024) Received from [facility] Vital Sign Worried About Running Out of Food in the Last Year: Sometimes true Ran Out of Food in the Last Year: Sometimes true Transportation Needs: No Transportation Needs (12/07/2024) Received from [facility] PRAPARE - Transportation Lack of Transportation (Medical): No Lack of (more content not included)... [facility] ED Nursing Noteon 12-23-2024 ED Nursing Note RN informed patient admitting team of patient b/p . Pt on the monitor. Pt declined feeling dizzy or nauseous. Pt want pants, RN is looking for pants [facility] ED Nursing Note Pt moved into inpatient bed. Pt on the monitor. [facility] ED Nursing Note Report given to Sunni NEWTON [facility] ED Nursing Note Received report from Parish NEWTON [facility] ED Nursing Note Levo drip turned off. BP 102/64. [facility] Progress Noteon 12-23-2024 Progress Note Pharmacy Managed Vancomycin Dosing Service Consult Note Consult Date: 12/23/24 Patient Name: Kevan La Allergies: Banana Age: 49 y.o. Sex: male Estimated body mass index is 22.19 kg/m? as calculated from the following: Height as of this encounter: 2.007 m (6' 7). Weight as of this encounter: 89.4 kg [...] creatinine, and vancomycin levels interfaced automatically to [employer] and data has been analyzed and interpreted. [...] PharmD Clinical Pharmacist Available via Secure Chat [facility] BLOOD CULTUREon 12-22-2024 Bacteria identified Cx Nom (Bld) BLOOD CULTURE Reference No growth at 5 days ORDER COMMENTS: Blood Collection Site: Right Arm [ S = SUSCEPTIBLE R = RESISTANT I = INTERMEDIATE S-DD = Susceptible-dose dependent NS = Non-susceptible NO = No Interpretation ] [facility] Comment on above: Performed By: #### L [id number], [id number] #### Information Lead: JAZLYN JIMENEZ ([id number]) [facility] ([address] Bacteria identified Cx Nom (Bld) BLOOD CULTURE Reference No growth at 5 days ORDER COMMENTS: Blood Collection Site: Left Arm [ S = SUSCEPTIBLE R = RESISTANT I = INTERMEDIATE S-DD = Susceptible-dose dependent NS = Non-susceptible NO = No Interpretation ] [facility] Comment on above: Performed By: #### L [id number], [id number] #### Information Lead: JAZLYN JIMENEZ ([id number]) [facility] ([facility]) [address] [place] [address] CBC W Auto Differential pane l (Bld)Ordered By: Flores Rausch on 12-22-2024 Erythrocyte distribution width (RBC) [Ratio] 17.3 % High 11.5 - 15.0 % [facility] Hematocrit (Bld) [Volume fraction] 26.8 % Low 40.0 - 52.0 % [facility] Hemoglobin (Bld) [Mass/Vol] 8.4 g/dL Low 13.0 - 18.0 g/dL [facility] Interpretation and review of laboratory results Abnormal [facility] MCH (RBC) [Entitic mass] 25.2 pg Low 26. 0 - 34.0 pg [facility] MCHC (RBC) [Mass/Vol] 31.3 % 30.5 - 36.0 % [facility] MCV (RBC) [Entitic vol] 80.5 fL 77.0 - 99.0 fL [facility] [employer] Platelet mean volume (Bld) [Entitic vol] 8.9 fL Low 9.0 - 12.7 fL [facility] Platelets (Bld) [#/Vol] 698 10*3/uL High 140 - 440 10*3/uL [facility] RBC (Bld) [#/Vol] 3.33 10*6/uL Low 4.40 - 5.9 0 10*6/uL [facility] WBC (Bld) [#/Vol] 19.4 10*3/uL High 3.6 - 10.7 10*3/uL [facility] CBC WITH AUTO DIFFERENTIALon 12-22-2024 Erythrocyte distribution width (RBC) [Ratio] 17.3 % High 11.5-15.0 [facility] Comment on above: Performed By: #### L [id number], [id number] #### Information Lead: JAZLYN JIMENEZ ([id number]) [facility] ([facility]) [address] [place] [address] Hematocrit (Bld) [Volume fraction] 26.8 % Low 40.0-52.0 [facility] Comment on above: Performed By: #### L LAURE, [id number] #### Information Lead: JAZLYN JIMENEZ ([id number]) [facility] ([facility]) [address] [place] [address] Hemoglobin (Bld) [Mass/Vol] 8.4 g/dL Low 13.0-18.0 [facility] Comment on above: Performed By: #### L [id number], [id number] #### Information Lead: JAZLYN JIMENEZ ([id number]) [facility] ([facility]) [address] [place] [address] MCH (RBC) [Entitic mass] 25.2 pg Low 26.0-34.0 [facility] Comment on above: Performed By: #### L [id number], [id number] #### Information Lead: JAZLYN JIMENEZ ([id number]) [facility]) [address] [place] [address] MCHC 31.3 % Normal 30.5-36.0 [facility] Comment on above: Performed By: #### L LQ3869, [id number] #### Information Lead: JAZLYN JIMENEZ ([id number]) [facility] ([facility]) [address] [place] [address] MCV (RBC) [Entitic vol] 80.5 fL Normal 77.0-99.0 [facility] Comment on above: Performed By: #### L [id number], [id number] #### Information Lead: JAZLYN JIMENEZ ([id number]) [facility] ([facility]) [address] [place] [address] Platelet mean volume (Bld) [Entitic vol] 8.9 fL Low 9.0-12.7 [facility] Comment on above: Performed By: #### L [id number], [id number] #### Information Lead: JAZLYN JIMENEZ ([id number]) [facility]) [address] [place] [address] Platelets (Bld) [#/Vol] 698 10*3/uL High 140-440 [facility] Comment on above: Performed By: #### L RQ8098, [id number] #### Information Lead: JAZLYN JIMENEZ ([id number]) [facility] ([facility]) [address] [place] [address] RBC (Bld) [#/Vol] 3.33 10*6/uL Low 4.40-5.90 [facility] Comment on above: Performed By: #### L WQ5531, [id number] #### Information Lead: JAZLYN JIMENEZ ([id number]) [facility] ([facility]) [address] [place] [address] WBC (Bld) [#/Vol] 19.4 10*3/uL High 3.6-10.7 [facility] Comment on above: Performed By: #### L OH5309, [id number] #### Information Lead: JAZLYN JIMENEZ ([id number]) [facility]) [address] [place] [address] COMPLETE URINALYSISon 2024 BILIRUBIN, TOTAL PRESENCE IN URINE Negative Normal Negative [facility] Comment on above: Performed By: #### L AB347 ####Information Lead: JAZLYN JIMENEZ ([id number])[facility])[address] [place] [address] Clarity (U) Clear Normal Clear [facility] Comment on above: Performed By: #### L AB347 ####Information Lead: JAZLYN JIMENEZ ([id number])[facility])[address] [place] [address] Color (U) Light Yellow Normal Lt. Yellow [facility] Comment on above: Performed By: #### L AB347 ####Information Lead: JAZLYN JIMENEZ ([id number])[facility])[address] [place] [address] GLUCOSE (MG/DL) IN URINE Normal Normal Normal (<70 ) [facility] Comment on above: Performed By: #### L AB347 ####Information Lead: JAZLYN JIMENEZ ([id number])[facility])[address] [place] [address] HEMOGLOBIN PRESENCE IN URINE Negative Normal Negative [facility] Comment on above: Performed By: #### L AB347 ####Information Lead: JAZLYN JIMENEZ ([id number])[facility])[address] [place] [address] Ketones Ql (U) Negative Normal Negative [facility] Comment on above: Performed By: #### L AB347 ####Information Lead: JAZLYN JIMENEZ ([id number])[facility] ([facility])[address] [place] [address] LEUKOCYTE ESTERASE PRESENCE IN URINE BY TEST STRIP Negative Normal Negative [facility] Comment on above: Performed By: #### L AB347 ####Information Lead: JAZLYN JIMENEZ ([id number])[facility] ([facility])[address] [place] [address] NITRITE PRESENCE IN URINE Negative Normal Negative [facility] Comment on above: Performed By: #### L [id number] ####Information Lead: JAZLYN JIMENEZ ([id number])[facility] ([facility])[address] [place] [address] pH (U) 6.0 [pH] Normal 5.0-8.0 [facility] Comment on above: Performed By: #### L [id number] ####Information Lead: JAZLYN JIMENEZ ([id number])[facility] ([facility])[address] [place] [address] Protein (U) [Mass/Vol] Negative Normal Negative [facility] Comment on above: Performed By: #### L [id number] ####Information Lead: JAZLYN JIMENEZ ([id number])[facility] ([facility])[address] [place] [address] Specific gravity (U) [Rel density] 1.009 Normal 1.005-1.030 [facility] Comment on above: Performed By: #### L [id number] ####Information Lead: JAZLYN JIMENEZ ([id number])[facility] ([facility])[address] [place] [address] [place] UROBILINOGEN (MG/DL) IN URINE Normal Normal Normal (0-1) [facility] Comment on above: Performed By: #### L [id number] ####Information Lead: JAZLYN JIMENEZ ([id number])[facility] ([facility])[address] [place] [address] [address]PREHENSIVE METABOLIC PANE Yuriy 12-22-2024 Albumin [Mass/Vol] 2.6 g/dL Low 3.5-5.0 [facility] Comment on above: Performed By: #### L [id number], [id number] #### Information Lead: JAZLYN JIMENEZ ([id number]) [facility] ([facility]) [address] [place] [address] ALP [Catalytic activity/Vol] 65 U/L Normal 40-150 [facility] Comment on above: Performed By: #### L [id number], [id number] #### Information Lead: JAZLYN JIMENEZ ([id number]) [facility] ([facility]) [address] [place] [address] ALT [Catalytic activity/Vol] 6 U/L Normal <40 [facility] Comment on above: Performed By: #### L OF2035, [id number] #### Information Lead: JAZLYN JIMENEZ ([id number]) [facility] ([facility]) [address] [place] [address] Anion gap [Moles/Vol] 10 mmol/L Normal 3-13 [facility] Comment on above: Performed By: #### L VJ5408, [id number] #### Information Lead: JAZLYN JIMENEZ ([id number]) [facility] ([facility]) [address] [place] [address] AST [Catalytic activity/Vol] 16 U/L Normal <34 [facility] Comment on above: Performed By: #### L WO0681, [id number] #### Information Lead: JALZYN JIMENEZ ([id number]) [facility] ([facility]) [address] [place] [address] Bilirubin [Mass/Vol] 0.4 mg/dL Normal <1.2 [facility] Comment on above: Performed By: #### L [id number], [id number] #### Information Lead: JAZLYN JIMENEZ ([id number]) [facility] ([facility]) [address] [place] [address] Calcium [Mass/Vol] 11.2 mg/dL High 8.4-10.2 [facility] Comment on above: Performed By: #### L [id number], [id number] #### Information Lead: JAZLYN JIMENEZ ([id number]) [facility] ([facility]) [address] [place] [address] Chloride [Moles/Vol] 98 mmol/L Normal 98-107 [facility] Comment on above: Performed By: #### L MW9538, [id number] #### Information Lead: JAZLYN JIMENEZ ([id number]) [facility] ([facility]) [address] [place] [address] CO2 [Moles/Vol] 24 mmol/L Normal 22-29 [facility] Comment on above: Performed By: #### L UM7413, [id number] #### Information Lead: JAZLYN JIMENEZ ([id number]) [facility] ([facility]) [address] [place] [address] Creatinine [Mass/Vol] 1.16 mg/dL Normal 0.72-1.25 [facility] Comment on above: Performed By: #### L YA1071, [id number] #### Information Lead: JAZLYN JIMENEZ ([id number]) [facility] ([facility]) [address] [place] [address] [place] GLOMERULAR FILTRATION RATE ML/MIN/1.73 SQ M.PREDICTED 76.3 mL/min/1.73m*2 Normal >60.0 [facility] Comment on above: Result Comment: Calc ulation based on the Chronic Kidney Disease Epidemiology Collaboration (CKD-EPI) equation refit without adjustment for race Performed By: #### L [id number], [id number] #### Information Lead: JAZLYN JIMENEZ ([id number]) [facility] ([facility]) [address] [place] [address] [place] Glucose [Mass/Vol] 108 mg/dL High 74-100 [facility] Comment on above: Performed By: #### L YP5081, [id number] #### Information Lead: JAZLYN JIMENEZ ([id number]) [facility] ([facility]) [address] [place] [address] Potassium [Moles/Vol] 4.0 mmol/L Normal 3.5-5.1 [facility] Comment on above: Result Comment: [facility] potassium values may be up to 0.5 mmol/L lower than serum values. Performed By: #### L GI7050, [id number] #### Information Lead: JAZLYN JIMENEZ ([id number]) [facility]) [address] [place] [address] Protein [Mass/Vol] 7.2 g/dL Normal 6.4-8.3 [facility] Comment on above: Performed By: #### L RU7625, [id number] #### Information Lead: JAZLYN JIMENEZ ([id number]) [facility] ([facility]) [address] [place] [address] Sodium [Moles/Vol] 132 mmol/L Low 136-145 [facility] Comment on above: Performed By: #### L WV4247, [id number] #### Information Lead: JAZLYN JIMENEZ ([id number]) [facility]) [address] [place] [address] Urea nitrogen [Mass/Vol] 11 mg/dL Normal 9-23 [facility] Comment on above: Performed By: #### L [id number], [id number] #### Information Lead: JAZLYN JIMENEZ ([id number]) [facility]) [address] [place] [address] CULTURE ANAEROBICon 12-23-19 25 CULTURE ANAEROBIC ANAEROBIC CULTURE (A) Reference BACTEROIDES FRAGILIS GROUP Moderate Bacteroides fragilis group (A) FUSOBACTERIUM GONIDIAFORMANS Fusobacterium gonidiaformans (A) This is an edited result. Previous organism was Anaerobic Gram-negative cocci on 12/24/2024 at 1358 EDT. [ S = SUSCEPTIBLE R = RESISTANT I = INTERMEDIATE S-DD = Susceptible-dose dependent NS = Non-susceptible NO = No Interpretation ] Normal [facility] Comment on above: Performed By: #### L [id number], [id number] #### Information Lead: JAZLYN JIMENEZ ([id number]) [facility]) [address] [place] [address] CULTURE, AEROBIC BACTERIA WI TH GRAM STAINon [...] Non-susceptible NO = No Interpretation ] Normal [facility] Comment on above: Performed By: #### L [id number], [id number] #### Information Lead: JAZLYN JIMENEZ ([id number]) [facility] [address] [place] [address] Comprehensive metabolic 1998 panelon 12-22-2024 Albumin [Mass/Vol] 2.6 g/dL Low 3.5 - 5.0 g/dL [facility] ALP [Catalytic activity/Vol] 65 U/L 40 - 150 U/L [facility] ALT [Catalytic activity/Vol] 6 U/L NINF - 40 U/L [facility] Anion gap [Moles/Vol] 10 mmol/L 3 - 13 mmol/L [facility] AST [Catalytic activity/Vol] 16 U/L NINF - 34 U/L [facility] Bilirubin [Mass/Vol] 0.4 mg/dL NINF - 1.2 mg/dL [facility] Calcium [Mass/Vol] 11.2 mg/dL High 8.4 - 10. 2 mg/dL [facility] Chloride [Moles/Vol] 98 mmol/L 98 - 10 7 mmol/L [facility] CO2 [Moles/Vol] 24 mmol/L 22 - 29 mmol/L [facility] Creatinine [Mass/Vol] 1.16 mg/dL 0.72 - 1.25 mg/dL [facility] GFR/1.73 sq M.predicted (S/P/Bld) [Vol rate/Area] 76.3 mL/min - PINF [facility] Comment on above: Calculation based on the Chronic Kidney Disease Epidemiology Collaboration (CKD-EPI) equation refit without adjustment for race Glucose [Mass/Vol] 108 mg/dL High 74 - 100 mg/dL [facility] Interpretation and review of laboratory results Abnormal [facility] Potassium [Moles/Vol] 4 mmol/L 3.5 - 5.1 mmol/L [facility] Comment on above: Plasma potassium jeri ues may be up to 0.5 mmol/L lower than serum values. Protein [Mass/Vol] 7.2 g/dL 6.4 - 8.3 g/dL [facility] Sodium [Moles/Vol] 132 mmol/L Low 136 - 145 mmol/L [facility] Urea nitrogen [Mass/Vol] 11 mg/dL 9 - 23 mg/d L [facility] ED Nursing Noteon 12-22-2024 ED Nursing Note Levo titrated to 2mcg/min. Patient BP remains stable. Normal [facility] ED Nursing Note Levo titrated to 4mcg/min. BP remains stable. Patient asymptomatic. Normal [facility] ED Nursing Note Levo titrated to 6mcg/min. BP remains stable. Patient asymptomatic. Normal [facility] ED Nursing Note Report given to Parish [place] Normal [facility] ED Nursing Note Dressing change completed with ABD pads, 2x2s and tape. Pt repostioned and saturated chucks removed Normal [facility] ED Nursing Note Messaged pharmacy regarding missing vancomycin dose Normal [facility] ED Nursing Note Report given to Mary [place] for lunch coverage Normal [facility] ED Provider Noteon ED Provider Note HPI Chief Complaint Patient presents with ? Wound Infection Pt arrives by life care from [facility] in [place], [facility] pt has had wound infection [...] his facility about a week ago from [facility] as he has SCC treating with cemiplimab. [...] typical urinary output. History provided by: Patient precipitator operator used: No INFORMED PHOTO CONSENT: The patient has given verbal consent to have photos taken of left hip and inserted into their provider note as a part of their permanent medical record for purposes of documentation, treatment management, and/or medical review. All images taken were transmitted and stored on a secure [employer] Back Hanger Site located within a Media Folder Tab by a registered [employer] Device. See Media tab in [employer] or photo as below. Kofi Coma Scale [...] (Oral) Resp 18 Ht 2.007 m (6' 7) Wt 89.4 kg (197 lb) SpO2 98% BMI 22.19 kg/m? BSA 2.23 m? Physical Exam Constitutional: General: He is not in acute distress. Appearance: He is ill-appearing. Comments: Large open draining wound with malodor upon my entering room HENT: Head: Normocephalic and atraumatic. Mouth/Throat: Lips: [place]. Mouth: Mucous membranes are moist. Cardiovascular: Rate [...] Navas MD (more content not included)... Normal [facility] ED Provider Note Emergency Department Encounter [facility] EMERGENCY DEPT Patient: Kevan La : [...] toward the left greater trochanter. He is long term had reported that he is currently on chemotherapy. He was hospitalized recently due to concerns of an abscess and had this managed by general surgery at [facility]. He receives most of his care for hidradenitis suppurativa at and is requesting to be transferred given that they are familiar with his care. Believe this is appropriate due to patient will require further evaluation by the surgery and primary team taking care of his chronic wound. We will continue IV antibiotics and IV pressors and transfer patient to [facility] for management. Diagnostics interpreted by me: I personally discussed the patient's management with other clinicians: Critical Care note: This patient was unstable and required constant supervision by me for 35 minutes during their visit. The patient's condition requiring intervention included: sepsis evaluation, multiple reassessments, vasopressors. This critical care time did not include time for procedures or time spent by the physicians assistant controller if they were caring for this patient. [...] contact the dictating provider for clarification.) Levi aMck, DO [employer] Levi Mack, DO 12/22/24 1730 Levi Mack, DO 12/22/24 1755 [facility] ED Provider Note I received this patient in signout who has been awaiting transfer to [facility] for septic shock in the setting of a left buttock wound requiring Levophed. I reviewed his labs and his medications and unfortunately has not been dosed with Zosyn since 1 PM. I reordered that and also timed for every 6 hours. He has been boarding in our emergency department for 16 hours now. We reached out to [facility] and they stated that there would [...] fluid responsive. I reached back out to [facility] to get him accepted to a regular nursing floor. I spoke with Dr Benitez at [facility] who accepted the patient to the regular nursing floor but they will still not have beds until most likely later this afternoon so will plan to admit him here medically so that the can be under the supervision and care of a hospitalist. Admitted in stable condition. Mary Calvert MD 12/23/24 0629 Normal [facility] ED Provider Note Pt signed out to me by Dr. Mack. Pt is awaiting transfer to for septic shock in setting of left buttock wound. Mani Dc, 12/23/24 0115 Normal [facility] LACTIC ACID WITH REFLEXon Lactate [Moles/Vol] 1.7 mmol/L Normal 0.5-2.2 [facility] Comment on above: Performed By: #### L [id number] ####Information Lead: JAZLYN JIMENEZ ([id number])[facility] ([address] Laboratory - Chemistry and C hemistry - challengeon 12-22-2024 Lactate [Moles/Vol] 1.7 mmol/L 0.5 - 2. 2 mmol/L [facility] Laboratory - Hematology and Cell countson 12-22-2024 Band form neutrophils (Bld) [#/Vol] 0.4 10*3/uL High NINF - 0.0 10*3/uL [facility] Band form neutrophils/100 WBC (Bld) 2 % High NINF - 0 % [facility] Basophils (Bld) [#/Vol] 0.2 10*3/uL 0.0 - 0.2 10*3/uL [facility] Basophils/100 WBC (Bld) 1 % 0 - 2 % [facility] Lymphocytes (Bld) [#/Vol] 0.8 10*3/uL Low 1.0 - 4.3 10*3/uL [facility] Lymphocytes/100 WBC (Bld) 4 % Low 15 - 45 % [facility] Monocytes (Bld) [#/Vol] 1 10*3/uL High 0.0 - 0.9 10*3/uL [facility] Monocytes/100 WBC (Bld) 5 % 5 - 13 % [facility] Neutrophils (Bld) [#/Vol] 17.5 10*3/uL High 1.8 - 7.5 10*3/uL [facility] Ovalocytes LM Ql (Bld) Moderate Abnormal (none) [facility] Poikilocytosis LM Ql (Bld) Moderate Abnormal (none) [facility] RBC morphology finding Nom (Bld) abnormal [facility] Segmented neutrophils/100 WBC (Bld) 88 % High 38 - 82 % [facility] Stomatocytes LM Ql (Bld) Moderate Abnormal (none) [facility] MANUAL DIFFERENTIAL (CELLAVI CHRIS)on 12-22-2024 BAND NEUTROPHILS TOTAL PER COUNTED LEUKOCYTES BY MANUAL COUNT 2 Normal [facility] Comment on above: Performed By: #### L [id number], [id number] #### Information Lead: JAZLYN JIMENEZ ([id number]) [facility] ([facility]) [address] [place] [address] [place] BANDS (10*3/UL) IN BLOOD-CELLAVISION 0.4 10*3/uL High <=0.0 [facility] Comment on above: Performed By: #### Kamila [id number], [id number] #### Information Lead: JAZLYN JIMENEZ ([id number]) [facility] ([facility]) [address] [place] [address] [place] BASOPHILS (10*3/UL) IN BLOOD-CELLAVISION 0.2 10*3/uL Normal 0.0-0.2 [facility] Comment on above: Performed By: #### Kamila [id number], [id number] #### Information Lead: JAZLYN JIMENEZ ([id number]) [facility] ([facility]) [address] [place] [address] [place] BASOPHILS TOTAL PER COUNTED LEUKOCYTES BY MANUAL COUNT 1 Normal [facility] Comment on above: Performed By: #### L [id number], [id number] #### Information Lead: JAZLYN JIMENEZ ([id number]) [facility] ([facility]) [address] [place] [address] [place] BASOPHILS/100 LEUKOCYTES IN BLOOD-CELLAVISION 1 % Normal 0-2 [facility] Comment on above: Performed By: #### L [id number], [id number] #### Information Lead: JAZLYN JIMENEZ ([id number]) [facility]) [address] [place] [address] [place] BLASTS TOTAL PER COUNTED LEUKOCYTES BY MANUAL COUNT Normal [facility] Comment on above: Performed By: #### L [id number], [id number] #### Information Lead: JAZLYN JIMENEZ ([id number]) [facility] ([facility]) [address] [place] [address] EOSINOPHILS TOTAL PER COUNTED LEUKOCYTES BY MANUAL COUNT [facility] Comment on above: Performed By: #### L [id number], [id number] #### Information Lead: JAZLYN JIMENEZ ([id number]) [facility]) [address] [place] [address] [place] LYMPHOCYTES (10*3/UL) IN BLOOD-CELLAVISION 0.8 10*3/uL Low 1.0-4.3 [facility] Comment on above: Performed By: #### L [id number], [id number] #### Information Lead: JAZLYN JIMENEZ ([id number]) [facility] ([facility]) [address] [place] [address] [place] LYMPHOCYTES TOTAL PER COUNTED LEUKOCYTES BY MANUAL COUNT 4 Normal [facility] Comment on above: Performed By: #### L [id number], [id number] #### Information Lead: JAZLYN JIMENEZ ([id number]) [facility]) [address] [place] [address] [place] LYMPHOCYTES/100 LEUKOCYTES IN BLOOD-CELLAVISION 4 % Low 15-45 [facility] Comment on above: Performed By: #### L [id number], [id number] #### Information Lead: JAZLYN JIMENEZ ([id number]) [facility]) [address] [place] [address] METAMYELOCYTES TOTAL PER COUNTED LEUKOCYTES BY MANUAL COUNT [facility] Comment on above: Performed By: #### L [id number], [id number] #### Information Lead: JAZLYN [id number]) [facility] ([facility]) [address] [place] [address] [place] MONOCYTES (10*3/UL) IN BLOOD-CELLAVISION 1.0 10*3/uL High 0.0-0.9 [facility] Comment on above: Performed By: #### L [id number], [id number] #### Information Lead: JAZLYN JIMENEZ ([id number]) [facility] ([facility]) [address] [place] [address] [place] MONOCYTES TOTAL PER COUNTED LEUKOCYTES BY MANUAL COUNT 5 Normal [facility] Comment on above: Performed By: #### L [id number], [id number] #### Information Lead: JAZLYN JIMENEZ ([id number]) [facility] ([facility]) [address] [place] [address] [place] MONOCYTES/100 LEUKOCYTES IN BLOOD-SAM 5 % Normal 5-13 [facility] Comment on above: Performed By: #### L [id number], [id number] #### Information Lead: JAZLYN JIMENEZ ([id number]) [facility] ([facility]) [address] [place] [address] [place] MYELOCYTES COUNTED BY MANUAL COUNT Normal [facility] Comment on above: Performed By: #### L [id number], [id number] #### Information Lead: JAZLYN JIMENEZ ([id number]) [facility]) [address] [place] [address] [place] NEUTROPHILS BAND FORM/100 LEUKOCYTES IN BLOOD-CELLAVISI 2 % High <=0 [facility] Comment on above: Performed By: #### L [id number], [id number] #### Information Lead: JAZLYN JIMENEZ ([id number]) [facility] ([facility]) [address] [place] [address] [place] NEUTROPHILS TOTAL PER COUNTED LEUKOCYTES BY MANUAL COUNT 89 Normal [facility] Comment on above: Performed By: #### L [id number], [id number] #### Information Lead: JAZLYN JIMENEZ ([id number]) [facility] ([facility]) [address] [place] [address] [place] OVALOCYTES PRESENCE IN BLOOD BY LIGHT MICROSCOPY Moderate Abnormal (none) [facility] Comment on above: Performed By: #### L [id number], [id number] #### Information Lead: JAZLYN JIMENEZ ([id number]) [facility] ([facility]) [address] [place] [address] POIKILOCYTOSIS (PRESENCE) IN BLOOD BY LIGHT MICROSCOPY Moderate Abnormal (none) [facility] Comment on above: Performed By: #### L [id number], [id number] #### Information Lead: JAZLYN JIMENEZ ([id number]) [facility] ([facility]) [address] [place] [address] [place] PROMYELOCYTES TOTAL PER COUNTED LEUKOCYTES BY MANUAL COUNT Normal [facility] Comment on above: Performed By: #### L [id number], [id number] #### Information Lead: JAZLYN JIMENEZ ([id number]) [facility] ([facility]) [address] [place] [address] RBC MORPHOLOGY IN BLOOD abnormal Normal [facility] Comment on above: Performed By: #### L [id number], [id number] #### Information Lead: JAZLYN JIMENEZ ([id number]) [facility] ([facility]) [address] [place] [address] [place] SEGMENTED NEUTROPHILS (10*3/UL) IN BLOOD-CELLAVISION 17.5 10*3/uL High 1.8-7.5 [facility] Comment on above: Performed By: #### L [id number], [id number] #### Information Lead: JAZLYN JIMENEZ ([id number]) [facility]) [address] [place] [address] [place] SEGMENTED NEUTROPHILS/100 LEUKOCYTES-CE 88 % High 38-82 [facility] Comment on above: Performed By: #### L [id number], [id number] #### Information Lead: JAZLYN JIMENEZ ([id number]) [facility]) [address] [place] [address] [place] STOMATOCYTES IN BLOOD BY LIGHT MICROSCOPY Moderate Abnormal (none) [facility] Comment on above: Performed By: #### L [id number], [id number] #### Information Lead: JAZLYN JIMENEZ ([id number]) [facility]) [address] [place] [address] UNCLASSIFIED CELLS TOTAL PER COUNTED LEUKOCYTES BY MANUAL COUNT Normal [facility] Comment on above: Performed By: #### L [id number], [id number] #### Information Lead: JAZLYN JIMENEZ ([id number]) [facility]) [address] [place] [address] VARIANT LYMPHOCYTES TOTAL PER COUNTED LEUKOCYTES BY MANUAL COUNT Normal [facility] Comment on above: Performed By: #### L [id number], [id number] #### Information Lead: JAZLYN JIMENEZ ([id number]) [facility] ([facility]) [address] [place] [address] No Panel Informationon 12-22 Atypical Lymphocytes Manual [facility] Bands Manual 2 [facility] Basophils Manual 1 [facility] Interpretation and review of laboratory results Abnormal [facility] Lymphocytes Manual 4 [facility] Metamyelocytes Manual [facility] Monocytes Manual 5 [facility] Myelocytes Manual [facility] Neutrophils Manual 89 [facility] Promyelocytes Manual [facility] Unclassified Cells, Manual [facility] Interpretation and review of laboratory results Normal [facility] Progress Noteon 12-22-2024 Progress Note Culture reviewed. Awaiting sensitivity results Normal [facility] Urinalysis complete panel (U )on 12-22-2024 Bilirubin Ql (U) Negative Negative mg/dL [facility] Clarity (U) Clear Clear [facility] Color (U) Light Yellow Lt. Yellow [facility] Glucose Ql (U) Normal Normal (<70) mg/dL [facility] Hemoglobin Ql (U) Negative Negative mg/dL [facility] Interpretation and review of laboratory results Normal [facility] Ketones (U) [Mass/Vol] Negative Negat sulema mg/dL [facility] Leukocyte esterase Test strip Ql (U) Negative Negative Gabe/uL [facility] Nitrite Ql (U) Negative Negative [facility] th pH (U) 6.0 [pH] 5.0 - 8.0 pH [facility] Protein (U) [Mass/Vol] Negative Negat sulema mg/dL [facility] Specific gravity (U) [Rel density] 1.009 1.005 - 1.030 [facility] Urobilinogen (U) [Mass/Vol] Normal Normal (0-1) mg/dL [facility] XR Chest Single viewon 12-22 [...] Electronically Signed Date/Time: 12/22/2024 1:25 PM EDT [facility] Patient Name: KEVAN LA [...] was obtained and reviewed. Special views: None. [facility] Fidel Navas MD - 12/22/2024 Patient [...] Electronically Signed Date/Time: 12/22/2024 1:25 PM EDT [facility] Radiology Study observation (narrative) [facility] XR Chest Single viewOrdered By: Fidel Navas on 12-22-2024 [facility] [employer] Work Phone: XR Hip - left 3 Viewson 1. Irregular soft tissue heterogeneity and subcutaneous emphysema projecting of the left thigh soft tissues. Patient was noted to have an abscess in this region on prior CT. Consider follow-up cross-sectional imaging. 2. No acute osseous abnormality identified. Report Dictated on Electronically Signed By: Jamison Covarrubias MD Electronically Signed Date/Time: 12/22/2024 1:33 PM EDT [facility] Patient Name: KEVAN LA [...] present involving the left thigh soft tissues. [facility] Jamison Covarrubias MD - 12/22/2024 [facility] Name: [facility] LA [facility] 1975 [id number] Exam Date/Time: 12/22/2024 13:20 Procedure: XR HIP [...] Electronically Signed Date/Time: 12/22/2024 1:33 PM EDT [facility] Radiology Study observation (narrative) [facility] alth XR Hip - left 3 ViewsOrdered By: Jamison Covarrubias on 12-22-2024 [facility] [employer] Work Phone: CBC W Auto Differential pane l (Bld)on 12-19-2024 Basophils (Bld) [#/Vol] 0.05 10*3/uL [facility] Basophils/100 WBC (Bld) 0.3 % 0.0 - 2.0 % [facility] Eosinophils (Bld) [#/Vol] 0.4 10*3/uL [facility] Eosinophils/100 WBC (Bld) 2.7 % 0.0 - 6.0 % [facility] Erythrocyte distribution width (RBC) [Ratio] 17.4 % High 11.5 - 14.5 % [facility] Hematocrit (Bld) [Volume fraction] 27.2 % Low 41.0 - 52.0 % [facility] Hemoglobin (Bld) [Mass/Vol] 8.2 g/dL Low 13.5 - 17.5 g/dL [facility] Immature granulocytes (Bld) [#/Vol] 0.07 10*3/uL [facility] Immature granulocytes/100 WBC (Bld) 0.5 % 0.0 - 0.9 % [facility] Interpretation and review of laboratory results Abnormal [facility] Lymphocytes (Bld) [#/Vol] 1.9 10*3/uL [facility] Lymphocytes/100 WBC (Bld) 12.7 % 13.0 - 44.0 % [facility] MCH (RBC) [Entitic mass] 25.7 pg Low 26. 0 - 34.0 pg [facility] MCHC (RBC) [Mass/Vol] 30.1 g/dL Low 32.0 - 36.0 g/dL [facility] MCV (RBC) [Entitic vol] 85 fL 80 - 100 fL [facility] Monocytes (Bld) [#/Vol] 1.38 10*3/uL High [facility] Monocytes/100 WBC (Bld) 9.2 % 2.0 - 10.0 % [facility] Neutrophils (Bld) [#/Vol] 11.2 10*3/uL High [facility] Neutrophils/100 WBC (Bld) 74.6 % 40.0 - 80.0 % [facility] Nucleated RBC/100 WBC (Bld) [Ratio] 0 % [facility] Platelets (Bld) [#/Vol] 699 10*3/uL High [facility] RBC (Bld) [#/Vol] 3.19 10*6/uL Low [facility] WBC (Bld) [#/Vol] 15 10*3/uL [facility] Magnesiumon 04-03-2025 Magnesium [Mass/Vol] 2.08 mg/dL 1.60 - 2.40 mg/dL [facility] Magnesium [Mass/Vol]on 12-19 Interpretation and review of laboratory results Normal [facility] No Panel Informationon 12-19 [facility] Renal function 2000 panelon 12-19-2024 Albumin BCP dye [Mass/Vol] 3.1 g/dL Low 3.4 - 5.0 g/dL [facility] Anion gap [Moles/Vol] 11 mmol/L 10 - 2 0 mmol/L [facility] Calcium [Mass/Vol] 10.9 mg/dL High 8.6 - 10. 6 mg/dL [facility] Chloride [Moles/Vol] 99 mmol/L 98 - 10 7 mmol/L [facility] CO2 [Moles/Vol] 31 mmol/L 21 - 32 mmol/L [facility] Creatinine [Mass/Vol] 1.14 mg/dL 0.50 - 1.30 mg/dL [facility] GFR/1.73 sq M.predicted among non-blacks MDRD (S/P/Bld) [Vol rate/Area] 78 mL/min/{1.73_m2} - PINF [facility] Glucose [Mass/Vol] 102 mg/dL High 74 - 99 mg/dL [facility] Interpretation and review of laboratory results Abnormal [facility] Phosphate [Mass/Vol] 2.7 mg/dL 2.5 - 4 .9 mg/dL [facility] Potassium [Moles/Vol] 4.9 mmol/L 3.5 - 5.3 mmol/L [facility] Sodium [Moles/Vol] 136 mmol/L 136 - 145 mmol/L [facility] Urea nitrogen [Mass/Vol] 13 mg/dL 6 - 23 mg/d L [facility] CBC W Auto Differential pane l (Bld)on 12-18-2024 Basophils (Bld) [#/Vol] 0.07 10*3/uL [facility] Basophils/100 WBC (Bld) 0.5 % 0.0 - 2.0 % [facility] Eosinophils (Bld) [#/Vol] 0.63 10*3/uL [facility] [facility] Eosinophils/100 WBC (Bld) 4.8 % 0.0 - 6.0 % [facility] Erythrocyte distribution width (RBC) [Ratio] 17.3 % High 11.5 - 14.5 % [facility] Hematocrit (Bld) [Volume fraction] 28.5 % Low 41.0 - 52.0 % [facility] Hemoglobin (Bld) [Mass/Vol] 8.5 g/dL Low 13.5 - 17.5 g/dL [facility] Immature granulocytes (Bld) [#/Vol] 0.06 10*3/uL [facility] Immature granulocytes/100 WBC (Bld) 0.5 % 0.0 - 0.9 % [facility] Interpretation and review of laboratory results Abnormal [facility] Lymphocytes (Bld) [#/Vol] 2.06 10*3/uL [facility] Lymphocytes/100 WBC (Bld) 15.6 % 13.0 - 44.0 % [facility] MCH (RBC) [Entitic mass] 25.1 pg Low 26. 0 - 34.0 pg [facility] MCHC (RBC) [Mass/Vol] 29.8 g/dL Low 32.0 - 36.0 g/dL [facility] MCV (RBC) [Entitic vol] 84 fL 80 - 100 fL [facility] Monocytes (Bld) [#/Vol] 1.3 10*3/uL High [facility] Monocytes/100 WBC (Bld) 9.8 % 2.0 - 10.0 % [facility] Neutrophils (Bld) [#/Vol] 9.09 10*3/uL High [facility] Neutrophils/100 WBC (Bld) 68.8 % 40.0 - 80.0 % [facility] Nucleated RBC/100 WBC (Bld) [Ratio] 0 % [facility] Platelets (Bld) [#/Vol] 705 10*3/uL High [facility] RBC (Bld) [#/Vol] 3.38 10*6/uL Low Unive [facility] WBC (Bld) [#/Vol] 13.2 10*3/uL High Unive [facility] ECG 12 LeadOrdered By: Yamilet Villa on 12-18-2024 Atrial Rate 72 BPM [facility] Work Phone: [phone] P [place] 58 degrees [facility] Work Phone: [phone] P Offset 180 ms [facility] Work Phone: [phone] P Onset 141 ms [facility] Work Phone: [phone] NH Interval 154 ms [facility] Work Phone: [phone] Q Onset 218 ms [facility] Work Phone: [phone] QRS Count 12 beats [facility] Work Phone: [phone] QRS Duration 92 ms [facility] Work Phone: [phone] QT Interval 382 ms [facility] Work Phone: [phone] QTC Calculation(Bazett) 418 ms U [facility] Work Phone: [phone] QTC Fredericia 406 ms [facility] Work Phone: [phone] R [place] 55 degrees [facility] Work Phone: [phone] T [place] 43 degrees [facility] Work Phone: [phone] T Offset 409 ms [facility] Work Phone: [phone] Ventricular Rate 72 BPM [facility] Work Phone: [phone] [facility] Work Phone: [phone] ECG 12 Leadon 12-18-2024 [facility] Work Phone: CBC W Auto Differential pane l (Bld)on 12-17-2024 Basophils (Bld) [#/Vol] 0.09 10*3/uL [facility] Basophils/100 WBC (Bld) 0.7 % 0.0 - 2.0 % [facility] Eosinophils (Bld) [#/Vol] 0.65 10*3/uL [facility] Eosinophils/100 WBC (Bld) 4.9 % 0.0 - 6.0 % [facility] Erythrocyte distribution width (RBC) [Ratio] 17.4 % High 11.5 - 14.5 % [facility] Hematocrit (Bld) [Volume fraction] 29 % Low 41.0 - 52.0 % [facility] Hemoglobin (Bld) [Mass/Vol] 8.5 g/dL Low 13.5 - 17.5 g/dL [facility] Immature granulocytes (Bld) [#/Vol] 0.06 10*3/uL [facility] Immature granulocytes/100 WBC (Bld) 0.4 % 0.0 - 0.9 % [facility] Interpretation and review of laboratory results Abnormal [facility] Lymphocytes (Bld) [#/Vol] 2.18 10*3/uL [facility] Lymphocytes/100 WBC (Bld) 16.3 % 13.0 - 44.0 % [facility] MCH (RBC) [Entitic mass] 25.1 pg Low 26. 0 - 34.0 pg [facility] MCHC (RBC) [Mass/Vol] 29.3 g/dL Low 32.0 - 36.0 g/dL [facility] MCV (RBC) [Entitic vol] 86 fL 80 - 100 fL [facility] Monocytes (Bld) [#/Vol] 1.22 10*3/uL High [facility] Monocytes/100 WBC (Bld) 9.1 % 2.0 - 10.0 % [facility] Neutrophils (Bld) [#/Vol] 9.17 10*3/uL High [facility] Neutrophils/100 WBC (Bld) 68.6 % 40.0 - 80.0 % [facility] Nucleated RBC/100 WBC (Bld) [Ratio] 0 % [facility] Platelets (Bld) [#/Vol] 754 10*3/uL High [facility] RBC (Bld) [#/Vol] 3.38 10*6/uL Low Unive [facility] WBC (Bld) [#/Vol] 13.4 10*3/uL High [facility] Magnesiumon 12-17-2024 Magnesium [Mass/Vol] 1.94 mg/dL 1.60 - 2.40 mg/dL [facility] Magnesium [Mass/Vol]on 12-17 Interpretation and review of laboratory results Normal [facility] No Panel Informationon 12-17 [facility] Renal function 2000 panelon 12-17-2024 Albumin BCP dye [Mass/Vol] 3.3 g/dL Low 3.4 - 5.0 g/dL [facility] Anion gap [Moles/Vol] 12 mmol/L 10 - 2 0 mmol/L [facility] Calcium [Mass/Vol] 11.3 mg/dL High 8.6 - 10. 6 mg/dL [facility] Chloride [Moles/Vol] 99 mmol/L 98 - 10 7 mmol/L [facility] CO2 [Moles/Vol] 30 mmol/L 21 - 32 mmol/L [facility] Creatinine [Mass/Vol] 1.18 mg/dL 0.50 - 1.30 mg/dL [facility] GFR/1.73 sq M.predicted among non-blacks MDRD (S/P/Bld) [Vol rate/Area] 75 mL/min/{1.73_m2} - PINF [facility] Glucose [Mass/Vol] 92 mg/dL 74 - 99 mg/dL [facility] Interpretation and review of laboratory results Abnormal [facility] Phosphate [Mass/Vol] 2.6 mg/dL 2.5 - 4 .9 mg/dL [facility] Potassium [Moles/Vol] 4.1 mmol/L 3.5 - 5.3 mmol/L [facility] Sodium [Moles/Vol] 137 mmol/L 136 - 145 mmol/L [facility] Urea nitrogen [Mass/Vol] 14 mg/dL 6 - 23 mg/d L [facility] CBC W Auto Differential pane l (Bld)on 12-16-2024 Basophils (Bld) [#/Vol] 0.07 10*3/uL [facility] Basophils/100 WBC (Bld) 0.5 % 0.0 - 2.0 % [facility] Eosinophils (Bld) [#/Vol] 0.72 10*3/uL High [facility] Eosinophils/100 WBC (Bld) 5.6 % 0.0 - 6.0 % [facility] Erythrocyte distribution width (RBC) [Ratio] 17.3 % High 11.5 - 14.5 % [facility] Hematocrit (Bld) [Volume fraction] 27.8 % Low 41.0 - 52.0 % [facility] Hemoglobin (Bld) [Mass/Vol] 8.3 g/dL Low 13.5 - 17.5 g/dL [facility] Immature granulocytes (Bld) [#/Vol] 0.07 10*3/uL [facility] Immature granulocytes/100 WBC (Bld) 0.5 % 0.0 - 0.9 % [facility] Interpretation and review of laboratory results Abnormal [facility] Lymphocytes (Bld) [#/Vol] 2.28 10*3/uL [facility] Lymphocytes/100 WBC (Bld) 17.9 % 13.0 - 44.0 % [facility] MCH (RBC) [Entitic mass] 25.3 pg Low 26. 0 - 34.0 pg [facility] MCHC (RBC) [Mass/Vol] 29.9 g/dL Low 32.0 - 36.0 g/dL [facility] MCV (RBC) [Entitic vol] 85 fL 80 - 100 fL [facility] Monocytes (Bld) [#/Vol] 1.31 10*3/uL [facility] Monocytes/100 WBC (Bld) 10.3 % 2.0 - 10.0 % [facility] Neutrophils (Bld) [#/Vol] 8.31 10*3/uL [facility] Neutrophils/100 WBC (Bld) 65.2 % 40.0 - 80.0 % [facility] Nucleated RBC/100 WBC (Bld) [Ratio] 0 % [facility] Platelets (Bld) [#/Vol] 660 10*3/uL High [facility] RBC (Bld) [#/Vol] 3.28 10*6/uL Low Unive [facility] WBC (Bld) [#/Vol] 12.8 10*3/uL High [facility] RF videography Hypopharynx a nd Esophagus Views for swallowing function W speech and W barium contrast Veronica 12-16-2024 [facility] Work Phone: Radiology Study observation (narrative) [facility] Work Phone: RF videography Hypopharynx a nd Esophagus Views for swallowing function W speech and W barium contrast POOrdered By: Jayson Abdi on 12-16-2024 [facility] Work Phone: CLUB MANAGER Modified Barium Swallow Evaluationon 12-16-2024 [facility] Work Phone: CBC W Auto Differential pane l (Bld)Ordered By: Ronna Berger[facility] on 12-15-2024 Basophils (Bld) [#/Vol] 0.06 10*3/uL [facility] Basophils/100 WBC (Bld) 0.4 % 0.0 - 2.0 % [facility] Eosinophils (Bld) [#/Vol] 0.69 10*3/uL [facility] Eosinophils/100 WBC (Bld) 4.9 % 0.0 - 6.0 % [facility] Erythrocyte distribution width (RBC) [Ratio] 17.3 % High 11.5 - 14.5 % [facility] Hematocrit (Bld) [Volume fraction] 27.6 % Low 41.0 - 52.0 % [facility] Hemoglobin (Bld) [Mass/Vol] 8.5 g/dL Low 13.5 - 17.5 g/dL [facility] Immature granulocytes (Bld) [#/Vol] 0.06 10*3/uL [facility] Immature granulocytes/100 WBC (Bld) 0.4 % 0.0 - 0.9 % [facility] Interpretation and review of laboratory results Abnormal [facility] Lymphocytes (Bld) [#/Vol] 2.15 10*3/uL [facility] Lymphocytes/100 WBC (Bld) 15.4 % 13.0 - 44.0 % [facility] MCH (RBC) [Entitic mass] 26 pg 26. 0 - 34.0 pg [facility] MCHC (RBC) [Mass/Vol] 30.8 g/dL Low 32.0 - 36.0 g/dL [facility] MCV (RBC) [Entitic vol] 84 fL 80 - 100 fL [facility] Monocytes (Bld) [#/Vol] 1.49 10*3/uL High [facility] Monocytes/100 WBC (Bld) 10.7 % 2.0 - 10.0 % [facility] Neutrophils (Bld) [#/Vol] 9.49 10*3/uL [facility] Neutrophils/100 WBC (Bld) 68.2 % 40.0 - 80.0 % [facility] Nucleated RBC/100 WBC (Bld) [Ratio] 0 % [facility] Platelets (Bld) [#/Vol] 696 10*3/uL High [facility] RBC (Bld) [#/Vol] 3.27 10*6/uL [facility] ([facility]ld[facility] [#/Vol] 13.9 10*3/uL High Unive [facility] Comprehensive metabolic 2000 panelOrdered By: Eitan Calvo on 12-15-2024 Albumin BCP dye [Mass/Vol] 3.1 g/dL Low 3.4 - 5.0 g/dL [facility] ALP [Catalytic activity/Vol] 65 U/L 33 - 120 U/L [facility] ALT With P-5'-P [Catalytic activity/Vol] 16 U/L 10 - 52 U/L [facility] Anion gap [Moles/Vol] 15 mmol/L 10 - 2 0 mmol/L [facility] AST With P-5'-P [Catalytic activity/Vol] 17 U/L 9 - 39 U/L [facility] Bilirubin [Mass/Vol] 0.2 mg/dL 0.0 - 1 .2 mg/dL [facility] Calcium [Mass/Vol] 10.6 mg/dL 8.6 - 10. 6 mg/dL [facility] Chloride [Moles/Vol] 100 mmol/L 98 - 10 7 mmol/L [facility] CO2 [Moles/Vol] 28 mmol/L 21 - 32 mmol/L [facility] Creatinine [Mass/Vol] 1.12 mg/dL 0.50 - 1.30 mg/dL [facility] GFR/1.73 sq M.predicted among non-blacks MDRD (S/P/Bld) [Vol rate/Area] 80 mL/min/{1.73_m2} - PINF [facility] Glucose [Mass/Vol] 107 mg/dL High 74 - 99 mg/dL Uni [facility] Interpretation and review of laboratory results Abnormal [facility] Potassium [Moles/Vol] 4.6 mmol/L 3.5 - 5.3 mmol/L [facility] Protein [Mass/Vol] 7.2 g/dL 6.4 - 8.2 g/dL [facility] Sodium [Moles/Vol] 138 mmol/L 136 - 145 mmol/L [facility] Urea nitrogen [Mass/Vol] 12 mg/dL 6 - 23 mg/d L [facility] CBC W Auto Differential pane l (Bld)on 12-14-2024 Basophils (Bld) [#/Vol] 0.07 10*3/uL [facility] Basophils/100 WBC (Bld) 0.6 % 0.0 - 2.0 % [facility] Eosinophils (Bld) [#/Vol] 0.67 10*3/uL [facility] Eosinophils/100 WBC (Bld) 5.9 % 0.0 - 6.0 % [facility] Erythrocyte distribution width (RBC) [Ratio] 17.2 % High 11.5 - 14.5 % [facility] Hematocrit (Bld) [Volume fraction] 27.8 % Low 41.0 - 52.0 % [facility] Hemoglobin (Bld) [Mass/Vol] 8.1 g/dL Low 13.5 - 17.5 g/dL [facility] Immature granulocytes (Bld) [#/Vol] 0.05 10*3/uL [facility] Immature granulocytes/100 WBC (Bld) 0.4 % 0.0 - 0.9 % [facility] Interpretation and review of laboratory results Abnormal [facility] Lymphocytes (Bld) [#/Vol] 2.33 10*3/uL [facility] Lymphocytes/100 WBC (Bld) 20.5 % 13.0 - 44.0 % [facility] MCH (RBC) [Entitic mass] 25.2 pg Low 26. 0 - 34.0 pg [facility] MCHC (RBC) [Mass/Vol] 29.1 g/dL Low 32.0 - 36.0 g/dL [facility] MCV (RBC) [Entitic vol] 86 fL 80 - 100 fL [facility] Monocytes (Bld) [#/Vol] 1.21 10*3/uL High [facility] Monocytes/100 WBC (Bld) 10.6 % 2.0 - 10.0 % [facility] Neutrophils (Bld) [#/Vol] 7.04 10*3/uL [facility] Neutrophils/100 WBC (Bld) 62 % 40.0 - 80.0 % [facility] Nucleated RBC/100 WBC (Bld) [Ratio] 0 % [facility] Platelets (Bld) [#/Vol] 699 10*3/uL High [facility] RBC (Bld) [#/Vol] 3.22 10*6/uL Low Unive [facility] WBC (Bld) [#/Vol] 11.4 10*3/uL High Unive [facility] CBC W Auto Differential pane l (Bld)on 12-13-2024 Basophils (Bld) [#/Vol] 0.05 10*3/uL [facility] Basophils/100 WBC (Bld) 0.5 % 0.0 - 2.0 % [facility] Eosinophils (Bld) [#/Vol] 0.11 10*3/uL [facility] Eosinophils/100 WBC (Bld) 1 % 0.0 - 6.0 % [facility] Erythrocyte distribution width (RBC) [Ratio] 16.8 % High 11.5 - 14.5 % [facility] Hematocrit (Bld) [Volume fraction] 25.4 % Low 41.0 - 52.0 % [facility] Hemoglobin (Bld) [Mass/Vol] 7.6 g/dL Low 13.5 - 17.5 g/dL [facility] Immature granulocytes (Bld) [#/Vol] 0.05 10*3/uL [facility] Immature granulocytes/100 WBC (Bld) 0.5 % 0.0 - 0.9 % [facility] Interpretation and review of laboratory results Abnormal [facility] Lymphocytes (Bld) [#/Vol] 1.74 10*3/uL [facility] Lymphocytes/100 WBC (Bld) 15.7 % 13.0 - 44.0 % [facility] MCH (RBC) [Entitic mass] 25.2 pg Low 26. 0 - 34.0 pg [facility] MCHC (RBC) [Mass/Vol] 29.9 g/dL Low 32.0 - 36.0 g/dL [facility] MCV (RBC) [Entitic vol] 84 fL 80 - 100 fL [facility] Monocytes (Bld) [#/Vol] 1.2 10*3/uL High [facility] Monocytes/100 WBC (Bld) 10.8 % 2.0 - 10.0 % [facility] Neutrophils (Bld) [#/Vol] 7.92 10*3/uL High [facility] Neutrophils/100 WBC (Bld) 71.5 % 40.0 - 80.0 % [facility] Nucleated RBC/100 WBC (Bld) [Ratio] 0 % [facility] Platelets (Bld) [#/Vol] 663 10*3/uL High [facility] RBC (Bld) [#/Vol] 3.01 10*6/uL Low Unive [facility] WBC (Bld) [#/Vol] 11.1 10*3/uL [facility] 12-13-2024 Magnesium [Mass/Vol] 1.97 mg/dL 1.60 - 2.40 mg/dL [facility] Magnesium [Mass/Vol]on 12-13 Interpretation and review of laboratory results Normal [facility] No Panel Informationon 12-13 [facility] Renal function 2000 panelon 12-13-2024 Albumin BCP dye [Mass/Vol] 3.1 g/dL Low 3.4 - 5.0 g/dL [facility] Anion gap [Moles/Vol] 12 mmol/L 10 - 2 0 mmol/L [facility] Calcium [Mass/Vol] 10.1 mg/dL 8.6 - 10. 6 mg/dL [facility] Chloride [Moles/Vol] 102 mmol/L 98 - 10 7 mmol/L [facility] CO2 [Moles/Vol] 29 mmol/L 21 - 32 mmol/L [facility] Creatinine [Mass/Vol] 1.01 mg/dL 0.50 - 1.30 mg/dL [facility] GFR/1.73 sq M.predicted among non-blacks MDRD (S/P/Bld) [Vol rate/Area] 90 mL/min/{1.73_m2} - PINF [facility] Glucose [Mass/Vol] 126 mg/dL High 74 - 99 mg/dL Uni [facility] Interpretation and review of laboratory results Abnormal [facility] Phosphate [Mass/Vol] 2.2 mg/dL Low 2.5 - 4 .9 mg/dL [facility] Potassium [Moles/Vol] 4.1 mmol/L 3.5 - 5.3 mmol/L [facility] Sodium [Moles/Vol] 139 mmol/L 136 - 145 mmol/L [facility] Urea nitrogen [Mass/Vol] 15 mg/dL 6 - 23 mg/d L [facility] CBC W Auto Differential pane l (Bld)on 12-12-2024 Basophils (Bld) [#/Vol] 0.06 10*3/uL [facility] Basophils/100 WBC (Bld) 0.5 % 0.0 - 2.0 % [facility] Eosinophils (Bld) [#/Vol] 0.66 10*3/uL [facility] Eosinophils/100 WBC (Bld) 5.1 % 0.0 - 6.0 % [facility] Erythrocyte distribution width (RBC) [Ratio] 16.7 % High 11.5 - 14.5 % [facility] Hematocrit (Bld) [Volume fraction] 26.5 % Low 41.0 - 52.0 % [facility] Hemoglobin (Bld) [Mass/Vol] 8.1 g/dL Low 13.5 - 17.5 g/dL [facility] Immature granulocytes (Bld) [#/Vol] 0.05 10*3/uL [facility] Immature granulocytes/100 WBC (Bld) 0.4 % 0.0 - 0.9 % [facility] Interpretation and review of laboratory results Abnormal [facility] Lymphocytes (Bld) [#/Vol] 1.86 10*3/uL [facility] Lymphocytes/100 WBC (Bld) 14.4 % 13.0 - 44.0 % [facility] MCH (RBC) [Entitic mass] 26 pg 26. 0 - 34.0 pg [facility] MCHC (RBC) [Mass/Vol] 30.6 g/dL Low 32.0 - 36.0 g/dL [facility] MCV (RBC) [Entitic vol] 85 fL 80 - 100 fL [facility] Monocytes (Bld) [#/Vol] 1.35 10*3/uL High [facility] Monocytes/100 WBC (Bld) 10.4 % 2.0 - 10.0 % [facility] Neutrophils (Bld) [#/Vol] 8.98 10*3/uL High [facility] Neutrophils/100 WBC (Bld) 69.2 % 40.0 - 80.0 % [facility] Nucleated RBC/100 WBC (Bld) [Ratio] 0 % [facility] Platelets (Bld) [#/Vol] 630 10*3/uL High [facility] RBC (Bld) [#/Vol] 3.11 10*6/uL Low [facility] WBC (Bld) [#/Vol] 13 10*3/uL [facility] ECG 12-LEADon 12-12-2024 ECG 12-LEAD Ventricular Rate 72 Atrial Rate 72 P-R Interval 154 QRS Duration 92 Q-T Interval 382 QTC Calculation(Bazett) 418 P [place] 58 R [place] 55 T [place] 43 QRS Count 12 Q Onset 218 P Onset 141 P Offset 180 T Offset 409 QTC Fredericia 406 Diagnosis Normal sinus rhythm Normal ECG When compared with ECG of 12-DEC-2024 12:27, (unconfirmed) No significant change was found Confirmed by Bobby Villa ([id number]) on 12/18/2024 5:50:09 PM Normal [facility] Hepatic function 2000 panelo n 12-12-2024 Albumin BCP dye [Mass/Vol] 2.9 g/dL Low 3.4 - 5.0 g/dL [facility] ALP [Catalytic activity/Vol] 56 U/L 33 - 120 U/L [facility] ALT With P-5'-P [Catalytic activity/Vol] 7 U/L Low 10 - 52 U/L [facility] AST With P-5'-P [Catalytic activity/Vol] 6 U/L Low 9 - 39 U/L [facility] Bilirubin [Mass/Vol] 0.2 mg/dL 0.0 - 1 .2 mg/dL [facility] Bilirubin.direct [Mass/Vol] 0.1 mg/dL 0.0 - 0.3 mg/dL [facility] Interpretation and review of laboratory results Abnormal [facility] Protein [Mass/Vol] 6.9 g/dL 6.4 - 8.2 g/dL [facility] MR Thigh - left WO and W con trast Mp 12-12-2024 [facility] Work Phone: [facility] Work Phone: Radiology Study observation (narrative) [facility] Work Phone: MR Thigh - left WO contrasto n 12-12-2024 [facility] Work Phone: MR Thigh - left WO contrastO rdered By: Kong Armijo on 12-12-2024 [facility] Work Phone: Magnesiumon 12-12-2024 Magnesium [Mass/Vol] 2.01 mg/dL 1.60 - 2.40 mg/dL [facility] Magnesium [Mass/Vol]on 12-12 Interpretation and review of laboratory results Normal [facility] No Panel Informationon 12-12 [facility] Renal function 2000 panelon 12-12-2024 Albumin BCP dye [Mass/Vol] 3 g/dL Low 3.4 - 5.0 g/dL [facility] Anion gap [Moles/Vol] 11 mmol/L 10 - 2 0 mmol/L [facility] Calcium [Mass/Vol] 11.1 mg/dL High 8.6 - 10. 6 mg/dL [facility] Chloride [Moles/Vol] 103 mmol/L 98 - 10 7 mmol/L [facility] CO2 [Moles/Vol] 30 mmol/L 21 - 32 mmol/L [facility] Creatinine [Mass/Vol] 1.15 mg/dL 0.50 - 1.30 mg/dL [facility] GFR/1.73 sq M.predicted among non-blacks MDRD (S/P/Bld) [Vol rate/Area] 77 mL/min/{1.73_m2} - PINF [facility] Glucose [Mass/Vol] 102 mg/dL High 74 - 99 mg/dL [facility] Interpretation and review of laboratory results Abnormal [facility] Phosphate [Mass/Vol] 2.9 mg/dL 2.5 - 4 .9 mg/dL [facility] Potassium [Moles/Vol] 4.7 mmol/L 3.5 - 5.3 mmol/L [facility] Sodium [Moles/Vol] 139 mmol/L 136 - 145 mmol/L [facility] Urea nitrogen [Mass/Vol] 14 mg/dL 6 - 23 mg/d L [facility] Bacteria identified Cx Nom ( Bld)on 12-11-2024 Interpretation and review of laboratory results Normal [facility] CBC W Auto Differential pane l (Bld)on 12-11-2024 Basophils (Bld) [#/Vol] 0.06 10*3/uL [facility] Basophils/100 WBC (Bld) 0.5 % 0.0 - 2.0 % [facility] Eosinophils (Bld) [#/Vol] 0.43 10*3/uL [facility] Eosinophils/100 WBC (Bld) 3.7 % 0.0 - 6.0 % [facility] Erythrocyte distribution width (RBC) [Ratio] 16.7 % High 11.5 - 14.5 % [facility] Hematocrit (Bld) [Volume fraction] 27.1 % Low 41.0 - 52.0 % [facility] Hemoglobin (Bld) [Mass/Vol] 8.1 g/dL Low 13.5 - 17.5 g/dL [facility] Immature granulocytes (Bld) [#/Vol] 0.05 10*3/uL [facility] Immature granulocytes/100 WBC (Bld) 0.4 % 0.0 - 0.9 % [facility] Interpretation and review of laboratory results Abnormal [facility] Lymphocytes (Bld) [#/Vol] 1.57 10*3/uL [facility] Lymphocytes/100 WBC (Bld) 13.6 % 13.0 - 44.0 % [facility] MCH (RBC) [Entitic mass] 25.5 pg Low 26. 0 - 34.0 pg [facility] MCHC (RBC) [Mass/Vol] 29.9 g/dL Low 32.0 - 36.0 g/dL [facility] MCV (RBC) [Entitic vol] 85 fL 80 - 100 fL [facility] Monocytes (Bld) [#/Vol] 1.8 10*3/uL High [facility] Monocytes/100 WBC (Bld) 15.6 % 2.0 - 10.0 % [facility] Neutrophils (Bld) [#/Vol] 7.64 10*3/uL [facility] Neutrophils/100 WBC (Bld) 66.2 % 40.0 - 80.0 % [facility] Nucleated RBC/100 WBC (Bld) [Ratio] 0 % [facility] Platelets (Bld) [#/Vol] 649 10*3/uL High [facility] RBC (Bld) [#/Vol] 3.18 10*6/uL Low Unive [facility] WBC (Bld) [#/Vol] 11.6 10*3/uL [facility] an d Antimicrobial susceptibilityon 12-11-2024 Bacteria identified Cx Nom (Bld) No growth at 4 days - FINAL REPORT [facility] Magnesiumon 12-11-2024 Magnesium [Mass/Vol] 1.96 mg/dL 1.60 - 2.40 mg/dL [facility] Magnesium [Mass/Vol]on 12-11 Interpretation and review of laboratory results Normal [facility] No Panel Informationon 12-11 [facility] Renal function 2000 panelon 12-11-2024 Albumin BCP dye [Mass/Vol] 2.9 g/dL Low 3.4 - 5.0 g/dL [facility] Anion gap [Moles/Vol] 9 mmol/L Low 10 - 2 0 mmol/L [facility] Calcium [Mass/Vol] 10.4 mg/dL 8.6 - 10. 6 mg/dL [facility] Chloride [Moles/Vol] 101 mmol/L 98 - 10 7 mmol/L [facility] CO2 [Moles/Vol] 29 mmol/L 21 - 32 mmol/L [facility] Creatinine [Mass/Vol] 1.34 mg/dL High 0.50 - 1.30 mg/dL [facility] GFR/1.73 sq M.predicted among non-blacks MDRD (S/P/Bld) [Vol rate/Area] 64 mL/min/{1.73_m2} - PINF [facility] Glucose [Mass/Vol] 99 mg/dL 74 - 99 mg/dL [facility] Interpretation and review of laboratory results Abnormal [facility] Phosphate [Mass/Vol] 3 mg/dL 2.5 - 4 .9 mg/dL [facility] Potassium [Moles/Vol] 4.3 mmol/L 3.5 - 5.3 mmol/L [facility] Sodium [Moles/Vol] 135 mmol/L Low 136 - 145 mmol/L [facility] Urea nitrogen [Mass/Vol] 13 mg/dL 6 - 23 mg/d L [facility] CBC W Auto Differential pane l (Bld)on 12-10-2024 Basophils (Bld) [#/Vol] 0.07 10*3/uL [facility] Basophils/100 WBC (Bld) 0.6 % 0.0 - 2.0 % [facility] Eosinophils (Bld) [#/Vol] 0.52 10*3/uL [facility] Eosinophils/100 WBC (Bld) 4.5 % 0.0 - 6.0 % [facility] Erythrocyte distribution width (RBC) [Ratio] 16.8 % High 11.5 - 14.5 % [facility] Hematocrit (Bld) [Volume fraction] 26.7 % Low 41.0 - 52.0 % [facility] Hemoglobin (Bld) [Mass/Vol] 8.1 g/dL Low 13.5 - 17.5 g/dL [facility] Immature granulocytes (Bld) [#/Vol] 0.04 10*3/uL [facility] Immature granulocytes/100 WBC (Bld) 0.3 % 0.0 - 0.9 % [facility] Interpretation and review of laboratory results Abnormal [facility] Lymphocytes (Bld) [#/Vol] 1.84 10*3/uL [facility] Lymphocytes/100 WBC (Bld) 16.1 % 13.0 - 44.0 % [facility] MCH (RBC) [Entitic mass] 25.8 pg Low 26. 0 - 34.0 pg [facility] MCHC (RBC) [Mass/Vol] 30.3 g/dL Low 32.0 - 36.0 g/dL [facility] MCV (RBC) [Entitic vol] 85 fL 80 - 100 fL [facility] Monocytes (Bld) [#/Vol] 1.42 10*3/uL High [facility] Monocytes/100 WBC (Bld) 12.4 % 2.0 - 10.0 % [facility] Neutrophils (Bld) [#/Vol] 7.57 10*3/uL [facility] Neutrophils/100 WBC (Bld) 66.1 % 40.0 - 80.0 % [facility] Nucleated RBC/100 WBC (Bld) [Ratio] 0 % [facility] Platelets (Bld) [#/Vol] 663 10*3/uL High [facility] RBC (Bld) [#/Vol] 3.14 10*6/uL Low Unive [facility] WBC (Bld) [#/Vol] 11.5 10*3/uL High Unive [facility] MR Thigh - left WO contrasto n 03-25-2025 Radiology Study observation (narrative) [facility] Work Phone: Magnesiumon 12-10-2024 Magnesium [Mass/Vol] 1.9 mg/dL 1.60 - 2.40 mg/dL [facility] No Panel Informationon 12-10 Interpretation and review of laboratory results Normal [facility] Renal function 2000 panelon 12-10-2024 Albumin BCP dye [Mass/Vol] 3 g/dL Low 3.4 - 5.0 g/dL [facility] Anion gap [Moles/Vol] 12 mmol/L 10 - 2 0 mmol/L [facility] Calcium [Mass/Vol] 10.1 mg/dL 8.6 - 10. 6 mg/dL [facility] Chloride [Moles/Vol] 102 mmol/L 98 - 10 7 mmol/L [facility] CO2 [Moles/Vol] 29 mmol/L 21 - 32 mmol/L [facility] Creatinine [Mass/Vol] 1.28 mg/dL 0.50 - 1.30 mg/dL [facility] GFR/1.73 sq M.predicted among non-blacks MDRD (S/P/Bld) [Vol rate/Area] 68 mL/min/{1.73_m2} - PINF [facility] Glucose [Mass/Vol] 89 mg/dL 74 - 99 mg/dL Uni [facility] Interpretation and review of laboratory results Abnormal [facility] Phosphate [Mass/Vol] 3.5 mg/dL 2.5 - 4 .9 mg/dL [facility] Potassium [Moles/Vol] 4.1 mmol/L 3.5 - 5.3 mmol/L [facility] Sodium [Moles/Vol] 139 mmol/L 136 - 145 mmol/L [facility] Urea nitrogen [Mass/Vol] 11 mg/dL 6 - 23 mg/d L [facility] Vancomycinon 12-10-2024 Vancomycin [Mass/Vol] 10.1 ug/mL 5.0 - 20.0 ug/mL [facility] Vancomycin [Mass/Vol]on 11-17 [facility] Bacteria identified Cx Nom ( Unsp spec)Ordered By: Mari Monique on 12-09-2024 Interpretation and review of laboratory results Abnormal [facility] Microscopic observation Gram stain Nom (Unsp spec) (2+) Few Polymorphonuclear leukocytes Abnormal [facility] Microscopic observation Gram stain Nom (Unsp spec) Positive Abnormal [facility] Blood type and Indirect anti body screen panel (Bld)on 12-09-2024 ABO group Nom (Bld) A [facility] Blood group antibody screen Ql Negative [facility] D Ag Ql (Bld) Positive [facility] CBC W Auto Differential pane l (Bld)on 12-09-2024 Basophils (Bld) [#/Vol] 0.06 10*3/uL [facility] Basophils/100 WBC (Bld) 0.6 % 0.0 - 2.0 % [facility] Eosinophils (Bld) [#/Vol] 0.49 10*3/uL [facility] Eosinophils/100 WBC (Bld) 4.8 % 0.0 - 6.0 % [facility] Erythrocyte distribution width (RBC) [Ratio] 16.4 % High 11.5 - 14.5 % [facility] Hematocrit (Bld) [Volume fraction] 25.6 % Low 41.0 - 52.0 % [facility] Hemoglobin (Bld) [Mass/Vol] 8.3 g/dL Low 13.5 - 17.5 g/dL [facility] Immature granulocytes (Bld) [#/Vol] 0.16 10*3/uL [facility] Immature granulocytes/100 WBC (Bld) 1.6 % High 0.0 - 0.9 % [facility] Interpretation and review of laboratory results Abnormal [facility] Lymphocytes (Bld) [#/Vol] 1.81 10*3/uL [facility] Lymphocytes/100 WBC (Bld) 17.8 % 13.0 - 44.0 % [facility] MCH (RBC) [Entitic mass] 26.2 pg 26. 0 - 34.0 pg [facility] MCHC (RBC) [Mass/Vol] 32.4 g/dL 32.0 - 36.0 g/dL [facility] MCV (RBC) [Entitic vol] 81 fL 80 - 100 fL [facility] Monocytes (Bld) [#/Vol] 1.04 10*3/uL High [facility] Monocytes/100 WBC (Bld) 10.2 % 2.0 - 10.0 % [facility] Neutrophils (Bld) [#/Vol] 6.63 10*3/uL [facility] Neutrophils/100 WBC (Bld) 65 % 40.0 - 80.0 % [facility] Nucleated RBC/100 WBC (Bld) [Ratio] 0 % [facility] Platelets (Bld) [#/Vol] 650 10*3/uL High [facility] RBC (Bld) [#/Vol] 3.17 10*6/uL Low Unive [facility] WBC (Bld) [#/Vol] 10.2 10*3/uL [facility] Magnesiumon 12-09-2024 Magnesium [Mass/Vol] 1.9 mg/dL 1.60 - 2.40 mg/dL [facility] Magnesium [Mass/Vol]on 12-09 Interpretation and review of laboratory results Normal [facility] No Panel Informationon 12-09 [facility] PT and aPTT panel Coag (PPP) on 12-09-2024 aPTT Coag (PPP) [Time] 26 s [facility] INR Coag (PPP) [Relative time] 1.3 {INR} High 0.9 - 1.1 [facility] Interpretation and review of laboratory results Abnormal [facility] PT Coag (PPP) [Time] 14.3 s [facility] Renal function 2000 panelon 12-09-2024 Albumin BCP dye [Mass/Vol] 3.1 g/dL Low 3.4 - 5.0 g/dL [facility] Anion gap [Moles/Vol] 15 mmol/L 10 - 2 0 mmol/L [facility] Calcium [Mass/Vol] 9.8 mg/dL 8.6 - 10. 6 mg/dL [facility] Chloride [Moles/Vol] 104 mmol/L 98 - 10 7 mmol/L [facility] CO2 [Moles/Vol] 25 mmol/L 21 - 32 mmol/L [facility] Creatinine [Mass/Vol] 1.2 mg/dL 0.50 - 1.30 mg/dL [facility] GFR/1.73 sq M.predicted among non-blacks MDRD (S/P/Bld) [Vol rate/Area] 73 mL/min/{1.73_m2} - PINF [facility] Glucose [Mass/Vol] 92 mg/dL 74 - 99 mg/dL [facility] Interpretation and review of laboratory results Abnormal [facility] Phosphate [Mass/Vol] 3.4 mg/dL 2.5 - 4 .9 mg/dL [facility] Potassium [Moles/Vol] 3.6 mmol/L 3.5 - 5.3 mmol/L [facility] Sodium [Moles/Vol] 140 mmol/L 136 - 145 mmol/L [facility] Urea nitrogen [Mass/Vol] 15 mg/dL 6 - 23 mg/d L [facility] Tissue/Wound Culture/SmearOr dered By: Mari Monique on 12-09-2024 Bacteria identified Cx Nom (Unsp spec) (4+) Abundant Mixed Gram-Positive and Gram-Negative Bacteria [facility] CBC W Auto Differential pane l (Bld)on 12-08-2024 Basophils (Bld) [#/Vol] 0.05 10*3/uL [facility] Basophils/100 WBC (Bld) 0.4 % 0.0 - 2.0 % [facility] Eosinophils (Bld) [#/Vol] 0.55 10*3/uL [facility] Eosinophils/100 WBC (Bld) 4.8 % 0.0 - 6.0 % [facility] Erythrocyte distribution width (RBC) [Ratio] 17 % High 11.5 - 14.5 % [facility] Hematocrit (Bld) [Volume fraction] 26.1 % Low 41.0 - 52.0 % [facility] Hemoglobin (Bld) [Mass/Vol] 7.8 g/dL Low 13.5 - 17.5 g/dL [facility] Immature granulocytes (Bld) [#/Vol] 0.05 10*3/uL [facility] Immature granulocytes/100 WBC (Bld) 0.4 % 0.0 - 0.9 % [facility] Interpretation and review of laboratory results Abnormal [facility] Lymphocytes (Bld) [#/Vol] 1.34 10*3/uL [facility] Lymphocytes/100 WBC (Bld) 11.7 % 13.0 - 44.0 % [facility] MCH (RBC) [Entitic mass] 25.3 pg Low 26. 0 - 34.0 pg [facility] MCHC (RBC) [Mass/Vol] 29.9 g/dL Low 32.0 - 36.0 g/dL [facility] MCV (RBC) [Entitic vol] 85 fL 80 - 100 fL [facility] Monocytes (Bld) [#/Vol] 1.36 10*3/uL High [facility] Monocytes/100 WBC (Bld) 11.9 % 2.0 - 10.0 % [facility] Neutrophils (Bld) [#/Vol] 8.1 10*3/uL High [facility] Neutrophils/100 WBC (Bld) 70.8 % 40.0 - 80.0 % [facility] Nucleated RBC/100 WBC (Bld) [Ratio] 0 % [facility] Platelets (Bld) [#/Vol] 595 10*3/uL High [facility] RBC (Bld) [#/Vol] 3.08 10*6/uL Low Unive [facility] WBC (Bld) [#/Vol] 11.5 10*3/uL [facility] Comprehensive metabolic 2000 panelon 12-08-2024 Albumin BCP dye [Mass/Vol] 2.9 g/dL Low 3.4 - 5.0 g/dL [facility] ALP [Catalytic activity/Vol] 48 U/L 33 - 120 U/L [facility] ALT With P-5'-P [Catalytic activity/Vol] 6 U/L Low 10 - 52 U/L [facility] Anion gap [Moles/Vol] 12 mmol/L 10 - 2 0 mmol/L [facility] AST With P-5'-P [Catalytic activity/Vol] 6 U/L Low 9 - 39 U/L [facility] Bilirubin [Mass/Vol] 0.3 mg/dL 0.0 - 1 .2 mg/dL [facility] Calcium [Mass/Vol] 9.4 mg/dL 8.6 - 10. 6 mg/dL [facility] Chloride [Moles/Vol] 106 mmol/L 98 - 10 7 mmol/L [facility] CO2 [Moles/Vol] 26 mmol/L 21 - 32 mmol/L [facility] Creatinine [Mass/Vol] 1.33 mg/dL High 0.50 - 1.30 mg/dL [facility] GFR/1.73 sq M.predicted among non-blacks MDRD (S/P/Bld) [Vol rate/Area] 65 mL/min/{1.73_m2} - PINF [facility] Glucose [Mass/Vol] 112 mg/dL High 74 - 99 mg/dL [facility] Interpretation and review of laboratory results Abnormal [facility] Potassium [Moles/Vol] 3.8 mmol/L 3.5 - 5.3 mmol/L [facility] Protein [Mass/Vol] 6.5 g/dL 6.4 - 8.2 g/dL [facility] Sodium [Moles/Vol] 140 mmol/L 136 - 145 mmol/L [facility] Urea nitrogen [Mass/Vol] 17 mg/dL 6 - 23 mg/d L [facility] No Panel Informationon 12-08 [facility] Vancomycinon 12-08-2024 Vancomycin [Mass/Vol] 16.6 ug/mL 5.0 - 20.0 ug/mL [facility] Vancomycin [Mass/Vol]on 11-17 Interpretation and review of laboratory results Normal [facility] C-reactive proteinon 025 CRP [Mass/Vol] 10.84 mg/dL High NINF - 1.00 mg/dL [facility] CBC W Auto Differential pane l (Bld)on 12-07-2024 Basophils (Bld) [#/Vol] 0 10*3/uL 0.0 - 0.2 10*3/uL [facility] Basophils/100 WBC (Bld) 0.3 % 0.0 - 2.0 % [facility] Eosinophils (Bld) [#/Vol] 0.4 10*3/uL 0.0 - 0.5 10*3/uL [facility] Eosinophils/100 WBC (Bld) 3.3 % 0.0 - 6.0 % [facility] Erythrocyte distribution width (RBC) [Ratio] 16.6 % High 11.5 - 15.0 % [facility] Hematocrit (Bld) [Volume fraction] 26.4 % Low 40.0 - 52.0 % [facility] Hemoglobin (Bld) [Mass/Vol] 8.4 g/dL Low 13.0 - 18.0 g/dL [facility] Immature granulocytes (Bld) [#/Vol] 0 10*3/uL NINF - 0.1 10*3/uL [facility] Immature granulocytes/100 WBC (Bld) 0.3 % 0.0 - 2.0 % [facility] Interpretation and review of laboratory results Abnormal [facility] Lymphocytes (Bld) [#/Vol] 1.7 10*3/uL 1.0 - 4.3 10*3/uL [facility] Lymphocytes/100 WBC (Bld) 13.9 % Low 15.0 - 45.0 % [facility] MCH (RBC) [Entitic mass] 25.7 pg Low 26. 0 - 34.0 pg [facility] MCHC (RBC) [Mass/Vol] 31.8 % 30.5 - 36.0 % [facility] MCV (RBC) [Entitic vol] 80.7 fL 77.0 - 99.0 fL [facility] Monocytes (Bld) [#/Vol] 1.4 10*3/uL High 0.0 - 0.9 10*3/uL [facility] Monocytes/100 WBC (Bld) 11.3 % 5.0 - 13.0 % [facility] Neutrophils (Bld) [#/Vol] 8.5 10*3/uL High 1.8 - 7.5 10*3/uL [facility] Neutrophils/100 WBC (Bld) 70.9 % 38.0 - 82.0 % [facility] Nucleated RBC/100 WBC (Bld) [Ratio] 0 % [facility] Platelet mean volume (Bld) [Entitic vol] 8.5 fL Low 9.0 - 12.7 fL [facility] Platelets (Bld) [#/Vol] 609 10*3/uL High 140 - 440 10*3/uL [facility] RBC (Bld) [#/Vol] 3.27 10*6/uL Low 4.40 - 5.9 0 10*6/uL [facility] WBC (Bld) [#/Vol] 12 10*3/uL High 3.6 - 10.7 10*3/uL [facility] CBC WITH AUTO DIFFERENTIALon 12-07-2024 Basophils (Bld) [#/Vol] 0.0 10*3/uL Normal 0.0-0.2 [facility] Comment on above: Performed By: #### L [id number] ####Information Lead: JAZLYN JIMENEZ ([id number])[facility])[address] [place] [address] Basophils/100 WBC (Bld) 0.3 % Normal 0.0-2.0 [facility] Comment on above: Performed By: #### L [id number] ####Information Lead: JAZLYN JIMENEZ ([id number])[facility])[address] [place] [address] Eosinophils (Bld) [#/Vol] 0.4 10*3/uL Normal 0.0-0.5 [facility] Comment on above: Performed By: #### L [id number] ####Information Lead: JAZLYN JIMENEZ ([id number])[facility])[address] [place] [address] Eosinophils/100 WBC (Bld) 3.3 % Normal 0.0-6.0 [facility] Comment on above: Performed By: #### L [id number] ####Information Lead: JAZLYN JIMENEZ ([id number])[facility])[address] [place] [address] Erythrocyte distribution width (RBC) [Ratio] 16.6 % High 11.5-15.0 [facility] Comment on above: Performed By: #### L [id number] ####Information Lead: JAZLYN JIMENEZ ([id number])[facility])[address] [place] [address] Hematocrit (Bld) [Volume fraction] 26.4 % Low 40.0-52.0 [facility] Comment on above: Performed By: #### L [id number] ####Information Lead: JAZLYN JIMENEZ ([id number])[facility])[address] [place] [address] Hemoglobin (Bld) [Mass/Vol] 8.4 g/dL Low 13.0-18.0 [facility] Comment on above: Performed By: #### L [id number] ####Information Lead: JAZLYN JIMENEZ ([id number])[facility])[address] [place] [address] IMMATURE GRANS % 0.3 % Normal 0.0-2.0 [facility] Comment on above: Performed By: #### L [id number] ####Information Lead: JAZLYN JIMENEZ ([id number])[facility])[address] [place] [address] IMMATURE GRANS ABSOLUTE 0.0 10*3/uL Normal <0.1 [facility] Comment on above: Performed By: #### L [id number] ####Information Lead: JAZLYN JIMENEZ ([id number])[facility])[address] [place] [address] Lymphocytes (Bld) [#/Vol] 1.7 10*3/uL Normal 1.0-4.3 [facility] Comment on above: Performed By: #### L [id number] ####Information Lead: JAZLYN JIMENEZ ([id number])[facility])[address] [place] [address] Lymphocytes/100 WBC (Bld) 13.9 % Low 15.0-45.0 [facility] Comment on above: Performed By: #### L [id number] ####Information Lead: JAZLYN JIMENEZ ([id number])[facility])[address] [place] [address] MCH (RBC) [Entitic mass] 25.7 pg Low 26.0-34.0 [facility] Comment on above: Performed By: #### L [id number] ####Information Lead: JAZLYN JIMENEZ ([id number])[facility])[address] [place] [address] MCHC 31.8 % Normal 30.5-36.0 [facility] Comment on above: Performed By: #### L [id number] ####Information Lead: JAZLYN JIMENEZ ([id number])[facility] ([facility])[address] [place] [address] MCV (RBC) [Entitic vol] 80.7 fL Normal 77.0-99.0 [facility] Comment on above: Performed By: #### L [id number] ####Information Lead: JAZLYN JIMENEZ ([id number])[facility] ([facility])[address] [place] [address] Monocytes (Bld) [#/Vol] 1.4 10*3/uL High 0.0-0.9 [facility] Comment on above: Performed By: #### L [id number] ####Information Lead: JAZLYN JIMENEZ ([id number])[facility] ([facility])[address] [place] [address] Monocytes/100 WBC (Bld) 11.3 % Normal 5.0-13.0 [facility] Comment on above: Performed By: #### L [id number] ####Information Lead: JAZLYN JIMENEZ ([id number])[facility] ([facility])[address] [place] [address] NEUTROPHILS ABSOLUTE 8.5 10*3/uL High 1.8-7.5 [facility] Comment on above: Performed By: #### L [id number] ####Information Lead: JAZLYN JIMENEZ ([id number])[facility] [facility] [place] [address] Neutrophils/100 WBC (Bld) 70.9 % Normal 38.0-82.0 [facility] Comment on above: Performed By: #### L [id number] ####Information Lead: JAZLYN JIMENEZ ([id number])[facility])[address] [place] [address] NRBC 0.0 /100 WBCs Normal 0.0-2.0 [facility] Comment on above: Performed By: #### L [id number] ####Information Lead: JAZLYN JIMENEZ ([id number])[facility] ([facility])[address] [place] [address] Platelet mean volume (Bld) [Entitic vol] 8.5 fL Low 9.0-12.7 [facility] Comment on above: Performed By: #### L [id number] ####Information Lead: JAZLYN JIMENEZ ([id number])[facility])[address] [place] [address] Platelets (Bld) [#/Vol] 609 10*3/uL High 140-440 [facility] Comment on above: Performed By: #### L [id number] ####Information Lead: JAZLYN JIMENEZ ([id number])[facility] ([facility])[address] [place] [address] RBC (Bld) [#/Vol] 3.27 10*6/uL Low 4.40-5.90 [facility] Comment on above: Performed By: #### L [id number] ####Information Lead: JAZLYN JIMENEZ ([id number])[facility] ([facility])[address] [place] [address] WBC (Bld) [#/Vol] 12.0 10*3/uL High 3.6-10.7 [facility] Comment on above: Performed By: #### L [id number] ####Information Lead: JAZLYN JIMENEZ ([id number])[facility])[address] [place] [address] CBC panel Auto (Bld)on 12-07 Erythrocyte distribution width (RBC) [Ratio] 16.8 % High 11.5 - 14.5 % [facility] Hematocrit (Bld) [Volume fraction] 26.5 % Low 41.0 - 52.0 % [facility] Hemoglobin (Bld) [Mass/Vol] 8 g/dL Low 13.5 - 17.5 g/dL [facility] Interpretation and review of laboratory results Abnormal [facility] MCH (RBC) [Entitic mass] 25.4 pg Low 26. 0 - 34.0 pg [facility] MCHC (RBC) [Mass/Vol] 30.2 g/dL Low 32.0 - 36.0 g/dL [facility] MCV (RBC) [Entitic vol] 84 fL 80 - 100 fL [facility] Nucleated RBC/100 WBC (Bld) [Ratio] 0 % [facility] Platelets (Bld) [#/Vol] 645 10*3/uL High [facility] RBC (Bld) [#/Vol] 3.15 10*6/uL Low [facility] WBC (Bld) [#/Vol] 12 10*3/uL High [facility] COMPREHENSIVE METABOLIC PANE Yuriy 12-07-2024 Albumin [Mass/Vol] 2.5 g/dL Low 3.5-5.0 [facility] Comment on above: Performed By: #### L [id number], [id number], LAB17 ####Information Lead: JAZLYN JIMENEZ ([id number])[address] ALP [Catalytic activity/Vol] 57 U/L Normal 40-150 [facility] Comment on above: Performed By: #### L AB103, [id number], LAB17 ####Information Lead: JAZLYN JIMENEZ ([id number])[address] ALT [Catalytic activity/Vol] U/L Normal <40 [facility] Comment on above: Performed By: #### L AB103, [id number], LAB17 ####Information Lead: JAZLYN JIMENEZ ([id number])[facility])[address] [place] [address] Anion gap [Moles/Vol] 7 mmol/L Normal 3-13 [facility] Comment on above: Performed By: #### Kamila AB103, [id number], LAB17 ####Information Lead: JAZLYN JIMENEZ ([id number])[facility] ([facility])[address] [place] [address] AST [Catalytic activity/Vol] 10 U/L Normal <34 [facility] Comment on above: Performed By: #### Kamila AB103, [id number], LAB17 ####Information Lead: JAZLYN JIMENEZ ([id number])[facility] ([facility])[address] [place] [address] Bilirubin [Mass/Vol] 0.3 mg/dL Normal <1.2 [facility] Comment on above: Performed By: #### Kamila ABRanda, [id number], LAB17 ####Information Lead: JAZLYN JIMENEZ ([id number])[facility] ([facility])[address] [place] [address] Calcium [Mass/Vol] 9.4 mg/dL Normal 8.4-10.2 [facility] Comment on above: Performed By: #### Kamila LOUISE, [id number], [id number] ####Information Lead: JAZLYN JIMENEZ ([id number])[facility] ([facility])[address] [place] [address] Chloride [Moles/Vol] 113 mmol/L High 98-107 [facility] Comment on above: Performed By: #### Kamila ABRanda, [id number], LAB17 ####Information Lead: JAZLYN JIMENEZ ([id number])[facility] ([facility])[address] [place] [address] [place] CO2 [Moles/Vol] 21 mmol/L Low 22-29 [facility] Comment on above: Performed By: #### L AB103, [id number], LAB17 ####Information Lead: JAZLYN JIMENEZ ([id number])[facility] ([facility])[address] [place] [address] Creatinine [Mass/Vol] 1.17 mg/dL Normal 0.72-1.25 [facility] Comment on above: Performed By: #### Kamila AB103, [id number], LAB17 ####Information Lead: JAZLYN JIMENEZ ([id number])[facility])[address] [place] [address] GLOMERULAR FILTRATION RATE ML/MIN/1.73 SQ M.PREDICTED 75.5 mL/min/1.73m*2 Normal >60.0 [facility] Comment on above: Result Comment: Calc ulation based on the Chronic Kidney Disease Epidemiology Collaboration (CKD-EPI) equation refit without adjustment for race Performed By: #### Kamila LOUISE, [id number], LAB17 ####Information Lead: JAZLYN JIMENEZ ([id number])[facility])[address] [place] [address] Glucose [Mass/Vol] 96 mg/dL Normal 74-100 [facility] Comment on above: Performed By: #### Kamila LOUISE, [id number], LAB17 ####Information Lead: JAZLYN JIMENEZ ([id number])[address] Potassium [Moles/Vol] 3.9 mmol/L Normal 3.5-5.1 [facility] Comment on above: Result Comment: [facility] potassium values may be up to 0.5 mmol/L lower than serum values. Performed By: #### Kamila AB103, [id number], LAB17 ####Information Lead: JAZLYN JIMENEZ ([id number])[facility])[address] [place] [address] Protein [Mass/Vol] 6.6 g/dL Normal 6.4-8.3 [facility] Comment on above: Performed By: #### Kamila AB103, [id number], LAB17 ####Information Lead: JAZLYN JIMENEZ ([id number])[facility])[address] [place] [address] Sodium [Moles/Vol] 141 mmol/L Normal 136-145 [facility] Comment on above: Performed By: #### Kamila AB103, [id number], LAB17 ####Information Lead: JAZLYN JIMENEZ ([id number])[facility] ([facility])[address] [place] [address] Urea nitrogen [Mass/Vol] 14 mg/dL Normal 9- [facility] Comment on above: Performed By: #### L AB103, [id number], LAB17 ####Information Lead: JAZLYN JIMENEZ ([id number])[facility] [place] [address] Comprehensive metabolic 1998 panelon 12-07-2024 Albumin [Mass/Vol] 2.5 g/dL Low 3.5 - 5.0 g/dL [facility] ALP [Catalytic activity/Vol] 57 U/L 40 - 150 U/L [facility] ALT [Catalytic activity/Vol] U/L NINF - 40 U/L [facility] Anion gap [Moles/Vol] 7 mmol/L 3 - 13 mmol/L [facility] AST [Catalytic activity/Vol] 10 U/L NINF - 34 U/L [facility] Bilirubin [Mass/Vol] 0.3 mg/dL NINF - 1.2 mg/dL [facility] Calcium [Mass/Vol] 9.4 mg/dL 8.4 - 10. 2 mg/dL [facility] Chloride [Moles/Vol] 113 mmol/L High 98 - 10 7 mmol/L [facility] CO2 [Moles/Vol] 21 mmol/L Low 22 - 29 mmol/L [facility] Creatinine [Mass/Vol] 1.17 mg/dL 0.72 - 1.25 mg/dL [facility] GFR/1.73 sq M.predicted (S/P/Bld) [Vol rate/Area] 75.5 mL/min - PINF [facility] Comment on above: Calculation based on the Chronic Kidney Disease Epidemiology Collaboration (CKD-EPI) equation refit without adjustment for race Glucose [Mass/Vol] 96 mg/dL 74 - 100 mg/dL [facility] Interpretation and review of laboratory results Abnormal [facility] Potassium [Moles/Vol] 3.9 mmol/L 3.5 - 5.1 mmol/L [facility] Comment on above: Plasma potassium jeri ues may be up to 0.5 mmol/L lower than serum values. Protein [Mass/Vol] 6.6 g/dL 6.4 - 8.3 g/dL [facility] Sodium [Moles/Vol] 141 mmol/L 136 - 145 mmol/L [facility] Urea nitrogen [Mass/Vol] 14 mg/dL 9 - 23 mg/d L [facility] Comprehensive metabolic 2000 panelon 12-07-2024 Albumin BCP dye [Mass/Vol] 3.1 g/dL Low 3.4 - 5.0 g/dL [facility] ALP [Catalytic activity/Vol] 53 U/L 33 - 120 U/L [facility] ALT With P-5'-P [Catalytic activity/Vol] 7 U/L Low 10 - 52 U/L [facility] Anion gap [Moles/Vol] 13 mmol/L 10 - 2 0 mmol/L [facility] AST With P-5'-P [Catalytic activity/Vol] 8 U/L Low 9 - 39 U/L [facility] Bilirubin [Mass/Vol] 0.4 mg/dL 0.0 - 1 .2 mg/dL [facility] Calcium [Mass/Vol] 9.6 mg/dL 8.6 - 10. 6 mg/dL [facility] Chloride [Moles/Vol] 109 mmol/L High 98 - 10 7 mmol/L [facility] CO2 [Moles/Vol] 22 mmol/L 21 - 32 mmol/L [facility] Creatinine [Mass/Vol] 1.32 mg/dL High 0.50 - 1.30 mg/dL [facility] GFR/1.73 sq M.predicted among non-blacks MDRD (S/P/Bld) [Vol rate/Area] 65 mL/min/{1.73_m2} - PINF [facility] Glucose [Mass/Vol] 91 mg/dL 74 - 99 mg[facility] Potassium [Moles/Vol] 3.9 mmol/L 3.5 - 5.3 mmol/L [facility] Protein [Mass/Vol] 6.7 g/dL 6.4 - 8.2 g/dL [facility] Sodium [Moles/Vol] 140 mmol/L 136 - 145 mmol/L [facility] Urea nitrogen [Mass/Vol] 16 mg/dL 6 - 23 mg/d L [facility] Consulton 12-07-2024 Consult Pharmacy Managed Vancomycin Dosing Service Consult Note Consult Date: 12/07/24 Patient Name: Kevan La Allergies: Banana Age: 49 y.o. Sex: male Estimated body mass index is 22.19 kg/m? as calculated from the following: Height as of this encounter: 2.007 m (6' 7). Weight as of this encounter: 89.4 kg [...] creatinine, and vancomycin levels interfaced automatically to [employer] and data has been analyzed and interpreted. [...] RPh Clinical Pharmacist Available via Secure Chat [facility] ED Nursing Noteon 12-07-2024 ED Nursing Note Report to AMAN Galindo. Normal [facility] ED Nursing Note Patient provided urinal per request. Respirations even and unlabored. No acute distress noted. Normal [facility] ED Nursing Note Report from AMAN Galindo. Normal [facility] ED Nursing Note Report to Josie/AMAN and patient moved to room 9 with all belongings and breakfast tray Normal [facility] ED Nursing Note Patient moving from 43 to 9 now Normal [facility] ED Nursing Note RN/Margarita ordered breakfast for the patient per his preference Normal [facility] ED Nursing Note Requested pharmacy to retime Vanc due to 3 hour administration of Zosyn (& both ordered at same time) Normal [facility] ED Nursing Note Patient actively vomiting - provider notified Normal [facility] ED Nursing Note Report given to AMAN Sutton Normal [facility] ESR Westergren method (Bld) [Velocity]on 12-07-2024 ESR (Bld) [Velocity] 102 mm/h High 0 - 20 mm/h [facility] Interpretation and review of laboratory results Abnormal [facility] Laboratory - Chemistry and C hemistry - challengeon 12-07-2024 Magnesium [Mass/Vol] 1.8 mg/dL 1.6 - 2 .6 mg/dL [facility] MAGNESIUMon 12-07-2024 Magnesium [Mass/Vol] 1.8 mg/dL Normal 1.6-2.6 [facility] Comment on above: Result Comment: MAYRA Dhillon COMMENTS: Higher values can be expected in females during menses. Performed By: #### L AB103, [id number], LAB17 ####Information Lead: JAZLYN JIMENEZ ([id number])[facility] ([facility])[address] [place] [address] Magnesiumon 12-07-2024 Magnesium [Mass/Vol] 1.86 mg/dL 1.60 - 2.40 mg/dL [facility] Magnesium [Mass/Vol]on 12-07 Interpretation and review of laboratory results [facility] Higher values can be expected in females during menses. [facility] No Panel Informationon 12-07 Interpretation and review of laboratory results Abnormal [facility] Interpretation and review of laboratory results Normal [facility] Nursing Noteon 12-07-2024 Nursing Note 1516 called report to ambulance is here to pick patient up Normal [facility] PHOSPHORUSon 12-07-2024 Phosphate [Mass/Vol] 2.5 mg/dL Normal 2.3-4.7 [facility] Comment on above: Performed By: #### L AB103, [id number], LAB17 ####Information Lead: AJZLYN JIMENEZ ([id number])[facility] ([facility])[address] [place] [address] [place] Phosphate [Moles/Vol]on 11-17 Phosphate [Mass/Vol] 2.5 mg/dL 2.3 - 4 .7 mg/dL [facility] Progress Noteon 12-07-2024 Progress Note Physician Response Please review the following and provide your response below. Please clarify which of the following accurately describes the patient's CKD Stage: CKD Stage 2 (GFR 60-89) This documentation will become part of the patient's medical record. Normal [facility] BLOOD CULTUREon 12-06-2024 Bacteria identified Cx Nom (Bld) BLOOD CULTURE Reference No growth at 5 days ORDER COMMENTS: Blood Collection Site: Right Forearm [ S = SUSCEPTIBLE R = RESISTANT I = INTERMEDIATE S-DD = Susceptible-dose dependent NS = Non-susceptible NO = No Interpretation ] Normal [facility] Comment on above: Performed By: #### L [id number], [id number] #### Information Lead: JAZLYN JIMENEZ ([id number]) [facility] ([facility]) [address] [place] [address] [place] Bacteria identified Cx Nom (Bld) BLOOD CULTURE Reference No growth at 5 days ORDER COMMENTS: Blood Collection Site: Right Antecubital [ S = SUSCEPTIBLE R = RESISTANT I = INTERMEDIATE S-DD = Susceptible-dose dependent NS = Non-susceptible NO = No Interpretation ] Normal [facility] Comment on above: Performed By: #### L [id number], [id number] #### Information Lead: JAZLYN JIMENEZ ([id number]) [facility] [address] [place] [address] [place] C-REACTIVE PROTEINon 03-21-2 025 CRP [Mass/Vol] 95.9 mg/L High <5.0 [facility] Comment on above: Performed By: #### L AB17, [id number] ####Information Lead: JAZLYN JIMENEZ ([id number])[facility] ([facility])[address] [place] [address] CBC W Auto Differential pane l (Bld)on 12-06-2024 Basophils (Bld) [#/Vol] 0 10*3/uL 0.0 - 0.2 10*3/uL [facility] Basophils/100 WBC (Bld) 0.3 % 0.0 - 2.0 % [facility] Eosinophils (Bld) [#/Vol] 0.3 10*3/uL 0.0 - 0.5 10*3/uL [facility] Eosinophils/100 WBC (Bld) 2.4 % 0.0 - 6.0 % [facility] [employer] Erythrocyte distribution width (RBC) [Ratio] 16.9 % High 11.5 - 15.0 % [facility] [employer] Hematocrit (Bld) [Volume fraction] 28.6 % Low 40.0 - 52.0 % [facility] Hemoglobin (Bld) [Mass/Vol] 9 g/dL Low 13.0 - 18.0 g/dL [facility] [employer] Immature granulocytes (Bld) [#/Vol] 0 10*3/uL NINF - 0.1 10*3/uL [facility] [employer] Immature granulocytes/100 WBC (Bld) 0.3 % 0.0 - 2.0 % [facility] [employer] Interpretation and review of laboratory results Abnormal [facility] [employer] Lymphocytes (Bld) [#/Vol] 1.5 10*3/uL 1.0 - 4.3 10*3/uL [facility] [employer] Lymphocytes/100 WBC (Bld) 11.4 % Low 15.0 - 45.0 % [facility] [employer] MCH (RBC) [Entitic mass] 25.7 pg Low 26. 0 - 34.0 pg [facility] [employer] MCHC (RBC) [Mass/Vol] 31.5 % 30.5 - 36.0 % [facility] [employer] MCV (RBC) [Entitic vol] 81.7 fL 77.0 - 99.0 fL [facility] [employer] Monocytes (Bld) [#/Vol] 1.1 10*3/uL High 0.0 - 0.9 10*3/uL [facility] Monocytes/100 WBC (Bld) 8.6 % 5.0 - 13.0 % [facility] Neutrophils (Bld) [#/Vol] 10 10*3/uL High 1.8 - 7.5 10*3/uL [facility] Neutrophils/100 WBC (Bld) 77 % 38.0 - 82.0 % [facility] Nucleated RBC/100 WBC (Bld) [Ratio] 0 % [facility] Platelet mean volume (Bld) [Entitic vol] 8.8 fL Low 9.0 - 12.7 fL [facility] Platelets (Bld) [#/Vol] 681 10*3/uL High 140 - 440 10*3/uL [facility] RBC (Bld) [#/Vol] 3.5 10*6/uL Low 4.40 - 5.9 0 10*6/uL [facility] WBC (Bld) [#/Vol] 13 10*3/uL High 3.6 - 10.7 10*3/uL [facility] CBC WITH AUTO DIFFERENTIALon 12-06-2024 Basophils (Bld) [#/Vol] 0.0 10*3/uL Normal 0.0-0.2 [facility] Comment on above: Performed By: #### Kamila KELSEY, [id number] ####Information Lead: JAZLYN [id number])[facility])[address] [place] [address] Basophils/100 WBC (Bld) 0.3 % Normal 0.0-2.0 [facility] Comment on above: Performed By: #### Kamila DE SOUZA8, [id number] ####Information Lead: JAZLYN JIMENEZ ([id number])[facility] ([facility])[address] [place] [address] [place] Eosinophils (Bld) [#/Vol] 0.3 10*3/uL Normal 0.0-0.5 [facility] Comment on above: Performed By: #### Kamila [id number], [id number] ####Information Lead: JAZLYN JIMENEZ ([id number])[facility] ([facility])[address] [place] [address] [place] Eosinophils/100 WBC (Bld) 2.4 % Normal 0.0-6.0 [facility] Comment on above: Performed By: #### Kamila [id number], [id number] ####Information Lead: JAZLYN JIMENEZ ([id number])[facility])[address] [place] [address] Erythrocyte distribution width (RBC) [Ratio] 16.9 % High 11.5-15.0 [facility] Comment on above: Performed By: #### Kamila [id number], [id number] ####Information Lead: JAZLYN JIMENEZ ([id number])[facility])[address] [place] [address] Hematocrit (Bld) [Volume fraction] 28.6 % Low 40.0-52.0 [facility] Comment on above: Performed By: #### Kamila [id number], [id number] ####Information Lead: JAZLYN JIMENEZ ([id number])[facility])[address] [place] [address] Hemoglobin (Bld) [Mass/Vol] 9.0 g/dL Low 13.0-18.0 [facility] Comment on above: Performed By: #### Kamila [id number], [id number] ####Information Lead: JAZLYN JIMENEZ ([id number])[facility])[address] [place] [address] IMMATURE GRANS % 0.3 % Normal 0.0-2.0 [facility] Comment on above: Performed By: #### L [id number], [id number] ####Information Lead: JAZLYN JIMENEZ ([id number])[address] IMMATURE GRANS ABSOLUTE 0.0 10*3/uL Normal <0.1 [facility] Comment on above: Performed By: #### L [id number], [id number] ####Information Lead: JAZLYN JIMENEZ ([id number])[facility])[address] [place] [address] Lymphocytes (Bld) [#/Vol] 1.5 10*3/uL Normal 1.0-4.3 [facility] Comment on above: Performed By: #### Kamila KELSEY, [id number] ####Information Lead: JAZLYN JIMENEZ ([id number])[facility])[address] [place] [address] Lymphocytes/100 WBC (Bld) 11.4 % Low 15.0-45.0 [facility] Comment on above: Performed By: #### Kamila KELSEY, [id number] ####Information Lead: JAZLYN JIMENEZ ([id number])[facility])[address] [place] [address] MCH (RBC) [Entitic mass] 25.7 pg Low 26.0-34.0 [facility] Comment on above: Performed By: #### Kamila KELSEY, [id number] ####Information Lead: JAZLYN JIMENEZ ([id number])[facility])[address] [place] [address] MCHC 31.5 % Normal 30.5-36.0 [facility] Comment on above: Performed By: #### Kamila KELSEY, [id number] ####Information Lead: JAZLYN JIMENEZ ([id number])[facility])[address] [place] [address] MCV (RBC) [Entitic vol] 81.7 fL Normal 77.0-99.0 [facility] Comment on above: Performed By: #### Kamila KELSEY, [id number] ####Information Lead: JAZLYN JIMENEZ ([id number])[facility])[address] [place] [address] Monocytes (Bld) [#/Vol] 1.1 10*3/uL High 0.0-0.9 [facility] Comment on above: Performed By: #### Kamila [id number], [id number] ####Information Lead: JAZLYN JIMENEZ ([id number])[facility])[address] [place] [address] Monocytes/100 WBC (Bld) 8.6 % Normal 5.0-13.0 [facility] Comment on above: Performed By: #### Kamila KELSEY, [id number] ####Information Lead: JAZLYN JIMENZE ([id number])[facility] ([facility])[address] [place] [address] NEUTROPHILS ABSOLUTE 10.0 10*3/uL High 1.8-7.5 [facility] Comment on above: Performed By: #### Kamila KELSEY, [id number] ####Information Lead: JAZLYN JIMENEZ ([id number])[facility] ([facility])[address] [place] [address] Neutrophils/100 WBC (Bld) 77.0 % Normal 38.0-82.0 [facility] Comment on above: Performed By: #### Kamila KELSEY, [id number] ####Information Lead: JAZLYN JIMENEZ ([id number])[facility] ([facility])[address] [place] [address] NRBC 0.0 /100 WBCs Normal 0.0-2.0 [facility] Comment on above: Performed By: #### Kamila KELSEY, [id number] ####Information Lead: JAZLYN JIMENEZ ([id number])[facility] ([facility])[address] [place] [address] Platelet mean volume (Bld) [Entitic vol] 8.8 fL Low 9.0-12.7 [facility] Comment on above: Performed By: #### Kamila KELSEY, [id number] ####Information Lead: JAZLYN JIMENEZ ([id number])[facility] ([facility])[address] [place] [address] [place] Platelets (Bld) [#/Vol] 681 10*3/uL High 140-440 [facility] Comment on above: Performed By: #### Kamila KELSEY, [id number] ####Information Lead: JAZLYN JIMENEZ ([id number])[facility] ([facility])[address] [place] [address] [place] RBC (Bld) [#/Vol] 3.50 10*6/uL Low 4.40-5.90 [facility] Comment on above: Performed By: #### L [id number], [id number] ####Information Lead: JAZLYN JIMENEZ ([id number])[facility] ([facility])[address] [place] [address] WBC (Bld) [#/Vol] 13.0 10*3/uL High 3.6-10.7 [facility] Comment on above: Performed By: #### L [id number], [id number] ####Information Lead: JAZLYN JIMENEZ ([id number])[facility] ([facility])[address] [place] [address] COMPLETE URINALYSISon 2024 BILIRUBIN, TOTAL PRESENCE IN URINE Negative Normal Negative [facility] Comment on above: Performed By: #### L [id number] ####Information Lead: JAZLYN JIMENEZ ([phone])[facility] ([facility])[address] [place] [address] Clarity (U) Clear Normal Clear [facility] Comment on above: Performed By: #### L [id number] ####Information Lead: JAZLYN JIMENEZ ([id number])[address] Color (U) Light Yellow Normal Lt. Yellow [facility] Comment on above: Performed By: #### L [id number] ####Information Lead: JAZLYN JIMENEZ ([id number])[facility] ([facility])[address] [place] [address] GLUCOSE (MG/DL) IN URINE Normal Normal Normal (<70 ) [facility] Comment on above: Performed By: #### L [id number] ####Information Lead: JAZLYN JIMENEZ ([id number])[facility])[address] [place] [address] HEMOGLOBIN PRESENCE IN URINE Negative Normal Negative [facility] Comment on above: Performed By: #### L [id number] ####Information Lead: JAZLYN JIMENEZ ([id number])[facility] ([facility])[address] [place] [address] Ketones Ql (U) Negative Normal Negative [facility] Comment on above: Performed By: #### L [id number] ####Information Lead: JAZLYN JIMENEZ ([id number])[facility])[address] [place] [address] LEUKOCYTE ESTERASE PRESENCE IN URINE BY TEST STRIP Negative Normal Negative [facility] Comment on above: Performed By: #### L [id number] ####Information Lead: JAZLYN JIMENEZ ([id number])[facility] ([facility])[address] [place] [address] NITRITE PRESENCE IN URINE Negative Normal Negative [facility] Comment on above: Performed By: #### L [id number] ####Information Lead: JAZLYN JIMENEZ ([id number])[facility])[address] [place] [address] pH (U) 5.5 [pH] Normal 5.0-8.0 [facility] Comment on above: Performed By: #### L [id number] ####Information Lead: JAZLYN JIMENEZ ([id number])[facility] ([facility])[address] [place] [address] Protein (U) [Mass/Vol] Negative Normal Negative [facility] Comment on above: Performed By: #### L [id number] ####Information Lead: JAZLYN JIMENEZ ([id number])[facility])[address] [place] [address] Specific gravity (U) [Rel density] 1.016 Normal 1.005-1.030 [facility] Comment on above: Performed By: #### L [id number] ####Information Lead: JAZLYN JIMENEZ ([id number])[facility])[address] [place] [address] UROBILINOGEN (MG/DL) IN URINE Normal Normal Normal (0-1) [facility] Comment on above: Performed By: #### L [id number] ####Information Lead: JAZLYN JIMENEZ ([id number])[facility] [place] [address] [address] METABOLIC PANE Yuriy 12-06-2024 Albumin [Mass/Vol] 2.7 g/dL Low 3.5-5.0 [facility] Comment on above: Performed By: #### L AB17, [id number] ####Information Lead: JAZLYN JIMENEZ ([id number])[facility] ([facility])[address] [place] [address] ALP [Catalytic activity/Vol] 63 U/L Normal 40-150 [facility] Comment on above: Performed By: #### L AB17, [id number] ####Information Lead: JAZLYN JIMENEZ ([id number])[facility] ([facility])[address] [place] [address] ALT [Catalytic activity/Vol] 7 U/L Normal <40 [facility] Comment on above: Performed By: #### L AB17, [id number] ####Information Lead: JAZLYN JIMENEZ ([id number])[facility] ([facility])[address] [place] [address] Anion gap [Moles/Vol] 8 mmol/L Normal 3-13 [facility] Comment on above: Performed By: #### L AB17, [id number] ####Information Lead: JAZLYN JIMENEZ ([id number])[facility] ([facility])[address] [place] [address] [place] AST [Catalytic activity/Vol] 17 U/L Normal <34 [facility] Comment on above: Performed By: #### L AB17, [id number] ####Information Lead: JAZLYN JIMENEZ ([id number])[facility] ([facility])[address] [place] [address] [place] Bilirubin [Mass/Vol] 0.2 mg/dL Normal <1.2 [facility] Comment on above: Performed By: #### L AB17, [id number] ####Information Lead: JAZLYN JIMENEZ ([id number])[facility] ([facility])[address] [place] [address] [place] Calcium [Mass/Vol] 10.0 mg/dL Normal 8.4-10.2 [facility] Comment on above: Performed By: #### L AB17, [id number] ####Information Lead: JAZLYN JIMENEZ ([id number])[facility])[address] [place] [address] Chloride [Moles/Vol] 110 mmol/L High 98-107 [facility] Comment on above: Performed By: #### L AB17, [id number] ####Information Lead: JAZLYN JIMENEZ ([id number])[facility] ([facility])[address] [place] [address] CO2 [Moles/Vol] 23 mmol/L Normal 22-29 [facility] Comment on above: Performed By: #### L AB17, [id number] ####Information Lead: JAZLYN JIMENEZ ([id number])[facility])[address] [place] [address] Creatinine [Mass/Vol] 1.19 mg/dL Normal 0.72-1.25 [facility] Comment on above: Performed By: #### L AB17, [id number] ####Information Lead: JAZLYN JIMENEZ ([id number])[facility])[address] [place] [address] GLOMERULAR FILTRATION RATE ML/MIN/1.73 SQ M.PREDICTED 74.0 mL/min/1.73m*2 Normal >60.0 [facility] Comment on above: Result Comment: Calc ulation based on the Chronic Kidney Disease Epidemiology Collaboration (CKD-EPI) equation refit without adjustment for race Performed By: #### L AB17, [id number] ####Information Lead: JAZLYN JIMENEZ ([id number])[facility] ([facility])[address] [place] [address] [place] Glucose [Mass/Vol] 92 mg/dL Normal 74-100 [facility] Comment on above: Performed By: #### L AB17, [id number] ####Information Lead: JAZLYN JIMENEZ ([id number])[facility])[address] [place] [address] [place] Potassium [Moles/Vol] 4.3 mmol/L Normal 3.5-5.1 [facility] Comment on above: Result Comment: [facility] potassium values may be up to 0.5 mmol/L lower than serum values. Performed By: #### L AB17, [id number] ####Information Lead: JAZLYN JIMENEZ ([id number])[facility] ([facility])[address] [place] [address] Protein [Mass/Vol] 7.4 g/dL Normal 6.4-8.3 [facility] Comment on above: Performed By: #### L AB17, [id number] ####Information Lead: JAZLYN JIMENEZ ([id number])[facility])[address] [place] [address] Sodium [Moles/Vol] 141 mmol/L Normal 136-145 [facility] Comment on above: Performed By: #### L AB17, [id number] ####Information Lead: JAZLYN JIMENEZ ([id number])[facility] ([facility])[address] [place] [address] Urea nitrogen [Mass/Vol] 15 mg/dL Normal 9-23 [facility] Comment on above: Performed By: #### L AB17, [id number] ####Information Lead: JAZLYN JIMENEZ ([id number])[facility])[address] [place] [address] CRP [Mass/Vol]Ordered By: Dave Churchill on 12-06-2024 Interpretation and review of laboratory results Abnormal [facility] CT PELVIS W IV CONTRASTon [...] on our table best imaging possible Normal [facility] CT Pelvis W contrast Mp Impression: Large wound along the proximal posterior thigh with large abscess within the posterior compartment of the left upper thigh. There is also presumed cellulitis. No obvious acute cortical erosion. Please note, the marrow is not assessed on a CT examination. Report Dictated on Electronically Signed By: Tess Carter MD Electronically Signed Date/Time: 12/06/2024 1:29 PM T [facility] LA [facility] 1975 [id number] Exam Date/Time: 12/06/2024 12:46 Procedure: CT PELVIS [...] Probable few small bladder diverticula present, posteriorly. [facility] Tess Carter MD - 12/06/2024 Patient Name: KEVAN LA : 1975 [id number] Exam Date/Time: 12/06/2024 12:46 Procedure: CT PELVIS [...] Electronically Signed Date/Time: 12/06/2024 1:29 PM EDT [facility] Radiology Study observation (narrative) [facility] alth CT Pelvis W contrast IVOrder ed By: Tess Carter on 12-06-2024 [facility] Work Phone: CULTURE ANAEROBICon 12-07-19 25 CULTURE ANAEROBIC ANAEROBIC CULTURE Reference Mixed aerobic and anaerobic bacteria present. BACTEROIDES FRAGILIS GROUP Few Bacteroides fragilis group (A) [ S = SUSCEPTIBLE R = RESISTANT I = INTERMEDIATE S-DD = Susceptible-dose dependent NS = Non-susceptible NO = No Interpretation ] Normal [facility] Comment on above: Performed By: #### L [id number] #### Information Lead: JAZLYN JIMENEZ ([id number]) [facility]) [address] [place] [address] CULTURE, AEROBIC BACTERIA WI TH GRAM STAINon 12-06-2024 CULTURE, AEROBIC BACTERIA WITH GRAM STAIN CULTURE Reference Moderate enteric phil present GRAM STAIN RESULT (A) Reference (A) Few Polymorphonuclear leukocytes per low power field Rare Gram negative bacilli [ S = SUSCEPTIBLE R = RESISTANT I = INTERMEDIATE S-DD = Susceptible-dose dependent NS = Non-susceptible NO = No Interpretation ] Normal [facility] Comment on above: Performed By: #### L [id number], [id number] #### Information Lead: JAZLYN JIMENEZ ([id number]) [facility] ([facility]) [address] [place] [address] Comprehensive metabolic 1998 panelon 12-06-2024 Albumin [Mass/Vol] 2.7 g/dL Low 3.5 - 5.0 g/dL [facility] ALP [Catalytic activity/Vol] 63 U/L 40 - 150 U/L [facility] ALT [Catalytic activity/Vol] 7 U/L [facility] U/L [facility] Anion gap [Moles/Vol] 8 mmol/L 3 - 13 mmol/L [facility] AST [Catalytic activity/Vol] 17 U/L [facility] - 34 U/L [facility] Bilirubin [Mass/Vol] 0.2 mg/dL NINF - 1.2 mg/dL [facility] Calcium [Mass/Vol] 10 mg/dL 8.4 - 10. 2 mg/dL [facility] Chloride [Moles/Vol] 110 mmol/L High 98 - 10 7 mmol/L [facility] CO2 [Moles/Vol] 23 mmol/L 22 - 29 mmol/L [facility] Creatinine [Mass/Vol] 1.19 mg/dL 0.72 - 1.25 mg/dL [facility] GFR/1.73 sq M.predicted (S/P/Bld) [Vol rate/Area] 74 mL/min - PINF [facility] Comment on above: Calculation based on the Chronic Kidney Disease Epidemiology Collaboration (CKD-EPI) equation refit without adjustment for race Glucose [Mass/Vol] 92 mg/dL 74 - 100 mg/dL [facility] Interpretation and review of laboratory results Abnormal [facility] Potassium [Moles/Vol] 4.3 mmol/L 3.5 - 5.1 mmol/L [facility] Comment on above: Plasma potassium jeri ues may be up to 0.5 mmol/L lower than serum values. Protein [Mass/Vol] 7.4 g/dL 6.4 - 8.3 g/dL [facility] Sodium [Moles/Vol] 141 mmol/L 136 - 145 mmol/L [facility] Urea nitrogen [Mass/Vol] 15 mg/dL 9 - 23 mg/d L [facility] ECG 12-LEADon 12-06-2024 ECG 12-LEAD IMPRESSION: Sinus bradycardia Electronically Signed On 12-06-2024 11:47:13 EDT by Fer Hollins [facility] ED Nursing Noteon 12-06-2024 ED Nursing Note Assume care of pt from AMAN Sutton for lunch coverage [facility] ED Nursing Note Patient requested pillow to place under right hip/leg for comfort. States he got a text message from that he can early check in and questioned if transfer was arranged. This nurse advised patient unknown at this time. Normal [facility] ED Nursing Note Pt to CT Normal [facility] ED Nursing Note This RN attempted to obtain another IV access and blood cultures but was unsuccessful [facility] ED Nursing Note Report to AMAN Pittman. [facility] ED Nursing Note Pt presents to ED via EMS from an assisted living facility with c/o a seeping ulcer. EMS reports this has been an ongoing issue. Pt states he is only ambulatory for short distances. Pt is A&Ox4. [facility] ED Provider Noteon 5 ED Provider Note Emergency Department Encounter [facility] [...] for clarification.) Fer Hollins MD Acute Care [facility] Fer Hollins MD 12/06/24 1120 [facility] ED Provider Note Emergency Department Encounter Location: [facility] EMERGENCY DEPT Patient: Kevan La : 1975 Date of evaluation: 12/06/2024 ED Provider: Rogelio Wilkinson DO Time received sign-out: 9715 Kevan La was checked out to me [...] 397 ms QTC Interval 390 ms P [place] 44 degrees QRS [place] 55 degrees T Wave [place] 56 degrees [place] Interval 142 ms Blood culture Site #1 [...] was to transfer the patient to [facility] for further management of his gluteal abscess (more content not included)... [facility] ED Provider Note EMERGENCY DEPARTMENT ENCOUNTER [...] months and recently had it drained at [facility]. He expresses concern for increasing pain, drainage [...] Resource Strain: Medium Risk (12/07/2024) Received from [facility] Overall Financial Resource Strain (CARDIA) Difficulty of Paying Living Expenses: Somewhat hard Food Insecurity: No Food Insecurity (12/07/2024) Received from [facility] Hunger Vital Sign Worried About Running Out of Food in the Last Year: Never true Ran Out of Food in the Last Year: Never true Recent Concern: Food Insecurity - Food Insecurity Present (10/11/2024) Received from [facility] Hunger Vital Sign Worried About Running Out of Food in the Last Year: Sometimes true Ran Out of Food in the Last Year: Sometimes true Transportation Needs: No Transportation Needs (12/07/2024) Received from [facility] PRAPARE - Transportation Lack of Transportation (Medical): No Lack of Transportation (Non-Medical): No Intimate Partner Violence: Not At Risk (12/07/2024) Received from [facility] Humiliation, Afraid, Rape, and Kick questionnaire Fear of Current or Ex-Partner: No Emotionally Abused: No Physically Abused: No Sexually Abused: No Housing Stability: High Risk (12/07/2024) Received from [facility] Housing Stability Vital Sign Unable to Pay for Housing in the Last Year: Yes Number of Times Moved in the Last Year: 1 Homeless in the Last Year: No SCREENINGS [place] Coma Scale Best Eye Response: Spontaneous Best Verbal Response: Oriented Best Motor Response: Follows commands [place] Coma Scale Score: 15 PHYSICAL EXAM ED [...] Result Impression: (more content not included)... Normal [facility] ED Provider Note I was signed [...] Fer Hull MD Resident 12/08/24 0656 Normal [facility] ESR (Bld) [Velocity]Ordered By: Philly Lal on 12-06-2024 Interpretation and review of laboratory results Abnormal [facility] Laboratory - Chemistry and C hemistry - challengeOrdered By: Oneida Churchill on 12-06-2024 CRP [Mass/Vol] 95.9 mg/L High NINF - 5.0 mg/L [facility] Laboratory - Hematology and Cell countsOrdered By: Philly Lal on 12-06-2024 ESR (Bld) [Velocity] 73 mm/h High [facility] No Panel Informationon 12-06 P [place] 44 degrees [facility] NH Interval 142 ms [facility] QRS [place] 55 degrees [facility] QRSD Interval 94 ms [facility] QT Interval 397 ms [facility] QTC Interval 390 ms [facility] T Wave [place] 56 degrees [facility] Sinus bradycardia Electronically Signed On 12-06-2024 11:47:13 EDT by Fer Hollins CV Fer Nix MD - 12/06/2024 IMPRESSION: Sinus bradycardia Electronically Signed On 12-06-2024 11:47:13 EDT by Fer Hollins [facility] Progress Noteon 12-06-2024 Progress Note Culture result reviewed. No further treatment needed. Normal [facility] SEDIMENTATION RATE, AUTOMATE Don 12-06-2024 SEDIMENTATION RATE, ERYTHROCYTE 73 mm/hr High 0-10 [facility] Comment on above: Performed By: #### L [id number], [id number] ####Information Lead: JAZLYN JIMENEZ ([id number])[facility] ([address] Urinalysis complete panel (U )on 12-06-2024 Bilirubin Ql (U) Negative Negative mg/dL [facility] Clarity (U) Clear Clear [facility] Color (U) Light Yellow Lt. Yellow [facility] Glucose Ql (U) Normal Normal (<70) mg/dL [facility] Hemoglobin Ql (U) Negative Negative mg/dL [facility] Interpretation and review of laboratory results Normal [facility] Ketones (U) [Mass/Vol] Negative Negat sulema mg/dL [facility] Leukocyte esterase Test strip Ql (U) Negative Negative Gabe/uL [facility] Nitrite Ql (U) Negative Negative [facility] pH (U) 5.5 [pH] 5.0 - 8.0 pH [facility] Protein (U) [Mass/Vol] Negative Negat sulema mg/dL [facility] Specific gravity (U) [Rel density] 1.016 1.005 - 1.030 [facility] Urobilinogen (U) [Mass/Vol] Normal Normal (0-1) mg/dL [facility] Vital signson 12-06-2024 Heart rate 58 /min bpm [facility] Anion gap in Serum or Plasma Ordered By: Julio Nolasco on 12-04-2024 Anion gap [Moles/Vol] 11 mmol/L 5-15 [facility] BUN/creatinine ratioOrdered By: Julio Nolasco on 12-04-2024 Urea nitrogen/Creatinine [Mass ratio] 11.5 mg/mg 10-20 [facility] Carbon dioxide, total [Moles /volume] in Central venous bloodOrdered By: Julio Nolasco on 12-04-2024 CO2 [Moles/Vol] 23.5 mmol/L 21.0-32.0 [facility] Chloride assayOrdered By: nicholas Nolasco on 12-04-2024 Chloride [Moles/Vol] 104 mmol/L 98-108 [facility] GFR/1.73 sq M.predicted yobany g non-blacks MDRD (S/P/Bld) [Vol rate/Area]Ordered By: Julio Nolasco on 12-04-2024 Estimated GFR (MDRD) Non-Af Amer 65 >60 [facility] Comment on above: mL/min/1.73m2 CKD-EP I Creatinine Equation (2020) Potassium (Unsp spec) [Mass/ Vol]Ordered By: Julio Nolasco on 12-04-2024 Potassium [Moles/Vol] 4.3 mmol/L 3.3-5.1 [facility] Serum creatinine measurement (mass/volume)Ordered By: Julio Nolasco on 12-04-2024 Creatinine [Mass/Vol] 1.32 mg/dL High 0.70-1.20 [facility] Serum glucose measurement (m ass/volume)Ordered By: Julio Nolasco on 12-04-2024 Glucose [Mass/Vol] 105 mg/dL High 70-99 [facility] Serum or plasma calcium mervat urement (mass/volume)Ordered By: Julio Nolasco on 12-04-2024 Calcium [Mass/Vol] 10.7 mg/dL 7.6-11.0 [facility] Serum or plasma urea nitroge n measurement (mass/volume)Ordered By: Julio Nolasco on 12-04-2024 Urea nitrogen [Mass/Vol] 15 mg/dL 4-19 [facility] Sodium levelOrdered By: William Nolasco on 12-04-2024 Sodium [Moles/Vol] 139 mmol/L 133-145 [facility] CBC W Auto Differential pane l (Bld)on 11-27-2024 Basophils (Bld) [#/Vol] 0.09 10*3/uL [facility] Basophils/100 WBC (Bld) 0.7 % 0.0 - 2.0 % [facility] Eosinophils (Bld) [#/Vol] 0.58 10*3/uL [facility] Eosinophils/100 WBC (Bld) 4.7 % 0.0 - 6.0 % [facility] Erythrocyte distribution width (RBC) [Ratio] 16.4 % High 11.5 - 14.5 % [facility] Hematocrit (Bld) [Volume fraction] 25 % Low 41.0 - 52.0 % [facility] Hemoglobin (Bld) [Mass/Vol] 7.9 g/dL Low 13.5 - 17.5 g/dL [facility] Immature granulocytes (Bld) [#/Vol] 0.04 10*3/uL [facility] Immature granulocytes/100 WBC (Bld) 0.3 % 0.0 - 0.9 % [facility] Interpretation and review of laboratory results Abnormal [facility] Lymphocytes (Bld) [#/Vol] 1.78 10*3/uL [facility] Lymphocytes/100 WBC (Bld) 14.5 % 13.0 - 44.0 % [facility] MCH (RBC) [Entitic mass] 26.7 pg 26. 0 - 34.0 pg [facility] MCHC (RBC) [Mass/Vol] 31.6 g/dL Low 32.0 - 36.0 g/dL [facility] MCV (RBC) [Entitic vol] 85 fL 80 - 100 fL [facility] Monocytes (Bld) [#/Vol] 0.92 10*3/uL [facility] Monocytes/100 WBC (Bld) 7.5 % 2.0 - 10.0 % [facility] Neutrophils (Bld) [#/Vol] 8.88 10*3/uL High [facility] Neutrophils/100 WBC (Bld) 72.3 % 40.0 - 80.0 % [facility] Nucleated RBC/100 WBC (Bld) [Ratio] 0 % [facility] Platelets (Bld) [#/Vol] 715 10*3/uL High [facility] RBC (Bld) [#/Vol] 2.96 10*6/uL Low Un[facility] WBC (Bld) [#/Vol] 12.3 10*3/uL High [facility] Magnesiumon 11-27-2024 Magnesium [Mass/Vol] 1.75 mg/dL 1.60 - 2.40 mg/dL [facility] Magnesium [Mass/Vol]on 11-27 Interpretation and review of laboratory results Normal [facility] No Panel Informationon 11-27 [facility] Renal function 2000 panelon 11-27-2024 Albumin BCP dye [Mass/Vol] 3.2 g/dL Low 3.4 - 5.0 g/dL [facility] Anion gap [Moles/Vol] 14 mmol/L 10 - 2 0 mmol/L [facility] Calcium [Mass/Vol] 9.5 mg/dL 8.6 - 10. 6 mg/dL [facility] Chloride [Moles/Vol] 99 mmol/L 98 - 10 7 mmol/L [facility] CO2 [Moles/Vol] 27 mmol/L 21 - 32 mmol/L [facility] Creatinine [Mass/Vol] 1.38 mg/dL High 0.50 - 1.30 mg/dL [facility] GFR/1.73 sq M.predicted among non-blacks MDRD (S/P/Bld) [Vol rate/Area] 62 mL/min/{1.73_m2} - PINF [facility] Glucose [Mass/Vol] 139 mg/dL High 74 - 99 mg/dL [facility] Interpretation and review of laboratory results Abnormal [facility] Phosphate [Mass/Vol] 2.5 mg/dL 2.5 - 4 .9 mg/dL [facility] Potassium [Moles/Vol] 4 mmol/L 3.5 - 5.3 mmol/L [facility] Sodium [Moles/Vol] 136 mmol/L 136 - 145 mmol/L [facility] Urea nitrogen [Mass/Vol] 10 mg/dL 6 - 23 mg/d L [facility] Bacteria identified Cx Nom ( Bld)on 11-26-2024 Interpretation and review of laboratory results Normal [facility] CBC W Auto Differential pane l (Bld)on 11-26-2024 Basophils (Bld) [#/Vol] 0.1 10*3/uL [facility] Basophils/100 WBC (Bld) 0.8 % 0.0 - 2.0 % [facility] Eosinophils (Bld) [#/Vol] 0.51 10*3/uL [facility] Eosinophils/100 WBC (Bld) 4.2 % 0.0 - 6.0 % [facility] Erythrocyte distribution width (RBC) [Ratio] 16.2 % High 11.5 - 14.5 % [facility] Hematocrit (Bld) [Volume fraction] 26.6 % Low 41.0 - 52.0 % [facility] Hemoglobin (Bld) [Mass/Vol] 8.3 g/dL Low 13.5 - 17.5 g/dL [facility] Immature granulocytes (Bld) [#/Vol] 0.05 10*3/uL [facility] Immature granulocytes/100 WBC (Bld) 0.4 % 0.0 - 0.9 % [facility] Interpretation and review of laboratory results Abnormal [facility] [facility] Lymphocytes (Bld) [#/Vol] 1.6 10*3/uL [facility] Lymphocytes/100 WBC (Bld) 13.3 % 13.0 - 44.0 % [facility] MCH (RBC) [Entitic mass] 26.4 pg 26. 0 - 34.0 pg [facility] MCHC (RBC) [Mass/Vol] 31.2 g/dL Low 32.0 - 36.0 g/dL [facility] MCV (RBC) [Entitic vol] 85 fL 80 - 100 fL [facility] Monocytes (Bld) [#/Vol] 1.2 10*3/uL High [facility] Monocytes/100 WBC (Bld) 9.9 % 2.0 - 10.0 % [facility] Neutrophils (Bld) [#/Vol] 8.61 10*3/uL High [facility] Neutrophils/100 WBC (Bld) 71.4 % 40.0 - 80.0 % [facility] Nucleated RBC/100 WBC (Bld) [Ratio] 0 % [facility] Platelets (Bld) [#/Vol] 780 10*3/uL High [facility] RBC (Bld) [#/Vol] 3.14 10*6/uL Low Unive [facility] WBC (Bld) [#/Vol] 12.1 10*3/uL High [facility] - Microbiology an d Antimicrobial susceptibilityon 11-26-2024 Bacteria identified Cx Nom (Bld) No growth at 4 days - FINAL REPORT [facility] Magnesiumon 11-26-2024 Magnesium [Mass/Vol] 2.07 mg/dL 1.60 - 2.40 mg/dL [facility] Magnesium [Mass/Vol]on 11-26 Interpretation and review of laboratory results Normal [facility] No Panel Informationon 11-26 [facility] Renal function 2000 panelon 11-26-2024 Albumin BCP dye [Mass/Vol] 3.4 g/dL 3.4 - 5.0 g/dL [facility] Anion gap [Moles/Vol] 17 mmol/L 10 - 2 0 mmol/L [facility] Calcium [Mass/Vol] 9.2 mg/dL 8.6 - 10. 6 mg/dL [facility] Chloride [Moles/Vol] 101 mmol/L 98 - 10 7 mmol/L [facility] CO2 [Moles/Vol] 24 mmol/L 21 - 32 mmol/L [facility] Creatinine [Mass/Vol] 1.22 mg/dL 0.50 - 1.30 mg/dL [facility] GFR/1.73 sq M.predicted among non-blacks MDRD (S/P/Bld) [Vol rate/Area] 72 mL/min/{1.73_m2} - PINF [facility] Glucose [Mass/Vol] 110 mg/dL High 74 - 99 mg/dL Uni [facility] Interpretation and review of laboratory results Abnormal [facility] Phosphate [Mass/Vol] 2.9 mg/dL 2.5 - 4 .9 mg/dL [facility] Potassium [Moles/Vol] 4.4 mmol/L 3.5 - 5.3 mmol/L [facility] Sodium [Moles/Vol] 138 mmol/L 136 - 145 mmol/L [facility] Urea nitrogen [Mass/Vol] 10 mg/dL 6 - 23 mg/d L [facility] Bacteria identified Cx Nom ( Unsp spec)on 11-25-2024 Interpretation and review of laboratory results Abnormal [facility] Work Phone: Microscopic observation Gram stain Nom (Unsp spec) (1+) Rare Polymorphonuclear leukocytes Abnormal [facility] Work Phone: Microscopic observation Gram stain Nom (Unsp spec) (4+) Abundant Mixed Gram positive and Gram negative bacteria Abnormal [facility] Work Phone: [facility] Work Phone: CBC W Auto Differential pane l (Bld)on 11-25-2024 Basophils (Bld) [#/Vol] 0.08 10*3/uL [facility] Basophils/100 WBC (Bld) 0.8 % 0.0 - 2.0 % [facility] Eosinophils (Bld) [#/Vol] 0.49 10*3/uL [facility] Eosinophils/100 WBC (Bld) 5.2 % 0.0 - 6.0 % [facility] Erythrocyte distribution width (RBC) [Ratio] 16.5 % High 11.5 - 14.5 % [facility] Hematocrit (Bld) [Volume fraction] 26.3 % Low 41.0 - 52.0 % [facility] Hemoglobin (Bld) [Mass/Vol] 8.1 g/dL Low 13.5 - 17.5 g/dL [facility] Immature granulocytes (Bld) [#/Vol] 0.03 10*3/uL [facility] Immature granulocytes/100 WBC (Bld) 0.3 % 0.0 - 0.9 % [facility] Interpretation and review of laboratory results Abnormal [facility] Lymphocytes (Bld) [#/Vol] 1.75 10*3/uL [facility] Lymphocytes/100 WBC (Bld) 18.5 % 13.0 - 44.0 % [facility] MCH (RBC) [Entitic mass] 26.5 pg 26. 0 - 34.0 pg [facility] MCHC (RBC) [Mass/Vol] 30.8 g/dL Low 32.0 - 36.0 g/dL [facility] MCV (RBC) [Entitic vol] 86 fL 80 - 100 fL [facility] Monocytes (Bld) [#/Vol] 1.08 10*3/uL High [facility] Monocytes/100 WBC (Bld) 11.4 % 2.0 - 10.0 % [facility] Neutrophils (Bld) [#/Vol] 6.01 10*3/uL [facility] Neutrophils/100 WBC (Bld) 63.8 % 40.0 - 80.0 % [facility] Nucleated RBC/100 WBC (Bld) [Ratio] 0 % [facility] Platelets (Bld) [#/Vol] 747 10*3/uL High [facility] RBC (Bld) [#/Vol] 3.06 10*6/uL [facility] [#/Vol] 9.4 10*3/uL [facility] Magnesiumon 11-25-2024 Magnesium [Mass/Vol] 1.95 mg/dL 1.60 - 2.40 mg/dL [facility] Magnesium [Mass/Vol]on 11-25 Interpretation and review of laboratory results Normal [facility] No Panel Informationon 11-25 [facility] Renal function 2000 panelon 11-25-2024 Albumin BCP dye [Mass/Vol] 3.1 g/dL Low 3.4 - 5.0 g/dL [facility] Anion gap [Moles/Vol] 14 mmol/L 10 - 2 0 mmol/L [facility] Calcium [Mass/Vol] 9 mg/dL 8.6 - 10. 6 mg/dL [facility] Chloride [Moles/Vol] 100 mmol/L 98 - 10 7 mmol/L [facility] CO2 [Moles/Vol] 27 mmol/L 21 - 32 mmol/L [facility] Creatinine [Mass/Vol] 1.29 mg/dL 0.50 - 1.30 mg/dL [facility] GFR/1.73 sq M.predicted among non-blacks MDRD (S/P/Bld) [Vol rate/Area] 67 mL/min/{1.73_m2} - PINF [facility] Glucose [Mass/Vol] 101 mg/dL High 74 - 99 mg/dL [facility] Interpretation and review of laboratory results Abnormal [facility] Phosphate [Mass/Vol] 2.7 mg/dL 2.5 - 4 .9 mg/dL [facility] Potassium [Moles/Vol] 3.6 mmol/L 3.5 - 5.3 mmol/L [facility] Sodium [Moles/Vol] 137 mmol/L 136 - 145 mmol/L [facility] Urea nitrogen [Mass/Vol] 10 mg/dL 6 - 23 mg/d L [facility] Tissue/Wound Culture/Smearon 11-25-2024 Bacteria identified Cx Nom (Unsp spec) (4+) Abundant Mixed Gram-Positive and Gram-Negative Bacteria [facility] Work Phone: Bacteria identified Cx Nom ( Unsp spec)on 11-24-2024 Beta lactamase organism identified Nom (Isol) Positive [facility] Work Phone: Interpretation and review of laboratory results Abnormal [facility] Work Phone: Microscopic observation Gram stain Nom (Unsp spec) (3+) Moderate Polymorphonuclear leukocytes Abnormal [facility] Work Phone: Microscopic observation Gram stain Nom (Unsp spec) Negative Abnormal [facility] Work Phone: [facility] Work Phone: Bacteria identified Cx Nom ( Unsp spec)Ordered By: Mari Monique on 11-24-2024 Interpretation and review of laboratory results Abnormal [facility] Microscopic observation Gram stain Nom (Unsp spec) No polymorphonuclear leukocytes seen Abnormal [facility] Microscopic observation Gram stain Nom (Unsp spec) (4+) Abundant Mixed Gram positive and Gram negative bacteria Abnormal [facility] CBC W Auto Differential pane l (Bld)on 11-24-2024 Basophils (Bld) [#/Vol] 0.1 10*3/uL [facility] Basophils/100 WBC (Bld) 0.9 % 0.0 - 2.0 % [facility] Eosinophils (Bld) [#/Vol] 0.52 10*3/uL [facility] Eosinophils/100 WBC (Bld) 4.9 % 0.0 - 6.0 % [facility] Erythrocyte distribution width (RBC) [Ratio] 16.1 % High 11.5 - 14.5 % [facility] Hematocrit (Bld) [Volume fraction] 28.6 % Low 41.0 - 52.0 % [facility] Hemoglobin (Bld) [Mass/Vol] 8.7 g/dL Low 13.5 - 17.5 g/dL [facility] Immature granulocytes (Bld) [#/Vol] 0.03 10*3/uL [facility] Immature granulocytes/100 WBC (Bld) 0.3 % 0.0 - 0.9 % [facility] Interpretation and review of laboratory results Abnormal [facility] Lymphocytes (Bld) [#/Vol] 1.84 10*3/uL [facility] Lymphocytes/100 WBC (Bld) 17.2 % 13.0 - 44.0 % [facility] MCH (RBC) [Entitic mass] 26.4 pg 26. 0 - 34.0 pg [facility] MCHC (RBC) [Mass/Vol] 30.4 g/dL Low 32.0 - 36.0 g/dL [facility] MCV (RBC) [Entitic vol] 87 fL 80 - 100 fL [facility] Monocytes (Bld) [#/Vol] 1.11 10*3/uL High [facility] Monocytes/100 WBC (Bld) 10.4 % 2.0 - 10.0 % [facility] Neutrophils (Bld) [#/Vol] 7.12 10*3/uL [facility] Neutrophils/100 WBC (Bld) 66.3 % 40.0 - 80.0 % [facility] Nucleated RBC/100 WBC (Bld) [Ratio] 0 % [facility] Platelets (Bld) [#/Vol] 818 10*3/uL High [facility] RBC (Bld) [#/Vol] 3.29 10*6/uL Low Unive [facility] WBC (Bld) [#/Vol] 10.7 10*3/uL Unive [facility] Magnesiumon 11-24-2024 Magnesium [Mass/Vol] 1.88 mg/dL 1.60 - 2.40 mg/dL [facility] Magnesium [Mass/Vol]on 11-24 Interpretation and review of laboratory results Normal [facility] No Panel Informationon 11-24 [facility] Renal function 2000 panelon 11-24-2024 Albumin BCP dye [Mass/Vol] 3.2 g/dL Low 3.4 - 5.0 g/dL [facility] Anion gap [Moles/Vol] 11 mmol/L 10 - 2 0 mmol/L [facility] Calcium [Mass/Vol] 9.1 mg/dL 8.6 - 10. 6 mg/dL [facility] Chloride [Moles/Vol] 99 mmol/L 98 - 10 7 mmol/L [facility] CO2 [Moles/Vol] 30 mmol/L 21 - 32 mmol/L [facility] Creatinine [Mass/Vol] 1.38 mg/dL High 0.50 - 1.30 mg/dL [facility] GFR/1.73 sq M.predicted among non-blacks MDRD (S/P/Bld) [Vol rate/Area] 62 mL/min/{1.73_m2} - PINF [facility] Glucose [Mass/Vol] 109 mg/dL High 74 - 99 mg/[facility] Interpretation and review of laboratory results Abnormal [facility] Phosphate [Mass/Vol] 3.3 mg/dL 2.5 - 4 .9 mg/dL [facility] Potassium [Moles/Vol] 3.8 mmol/L 3.5 - 5.3 mmol/L [facility] Sodium [Moles/Vol] 136 mmol/L 136 - 145 mmol/L [facility] Urea nitrogen [Mass/Vol] 15 mg/dL 6 - 23 mg/d L [facility] Tissue/Wound Culture/Smearon 11-24-2024 Bacteria identified Cx Nom (Unsp spec) Negative [facility] Work Phone: Bacteria identified Cx Nom (Unsp spec) (4+) Abundant Mixed Anaerobic Bacteria [facility] Work Phone: Tissue/Wound Culture/SmearOr dered By: Mari Monique on 11-24-2024 Bacteria identified Cx Nom (Unsp spec) (4+) Abundant Mixed Gram-Positive and Gram-Negative Bacteria [facility] CBC W Auto Differential pane l (Bld)on 11-23-2024 Basophils (Bld) [#/Vol] 0.11 10*3/uL High [facility] Basophils/100 WBC (Bld) 0.8 % 0.0 - 2.0 % [facility] Eosinophils (Bld) [#/Vol] 0.5 10*3/uL [facility] Eosinophils/100 WBC (Bld) 3.5 % 0.0 - 6.0 % [facility] Erythrocyte distribution width (RBC) [Ratio] 16.3 % High 11.5 - 14.5 % [facility] Hematocrit (Bld) [Volume fraction] 30.1 % Low 41.0 - 52.0 % [facility] Hemoglobin (Bld) [Mass/Vol] 9.4 g/dL Low 13.5 - 17.5 g/dL [facility] Immature granulocytes (Bld) [#/Vol] 0.08 10*3/uL [facility] Immature granulocytes/100 WBC (Bld) 0.6 % 0.0 - 0.9 % [facility] Interpretation and review of laboratory results Abnormal [facility] Lymphocytes (Bld) [#/Vol] 1.65 10*3/uL [facility] Lymphocytes/100 WBC (Bld) 11.5 % 13.0 - 44.0 % [facility] MCH (RBC) [Entitic mass] 26.8 pg 26. 0 - 34.0 pg [facility] MCHC (RBC) [Mass/Vol] 31.2 g/dL Low 32.0 - 36.0 g/dL [facility] MCV (RBC) [Entitic vol] 86 fL 80 - 100 fL [facility] Monocytes (Bld) [#/Vol] 1.59 10*3/uL High [facility] Monocytes/100 WBC (Bld) 11.1 % 2.0 - 10.0 % [facility] Neutrophils (Bld) [#/Vol] 10.38 10*3/uL High [facility] Neutrophils/100 WBC (Bld) 72.5 % 40.0 - 80.0 % [facility] Nucleated RBC/100 WBC (Bld) [Ratio] 0 % [facility] Platelets (Bld) [#/Vol] 844 10*3/uL High [facility] RBC (Bld) [#/Vol] 3.51 10*6/uL Low Unive [facility] WBC (Bld) [#/Vol] 14.3 10*3/uL [facility] Magnesiumon 11-23-2024 Magnesium [Mass/Vol] 1.94 mg/dL 1.60 - 2.40 mg/dL [facility] Magnesium [Mass/Vol]on 11-23 Interpretation and review of laboratory results Normal [facility] No Panel Informationon 11-23 [facility] Renal function 2000 panelon 11-23-2024 Albumin BCP dye [Mass/Vol] 3.4 g/dL 3.4 - 5.0 g/dL [facility] Anion gap [Moles/Vol] 15 mmol/L 10 - 2 0 mmol/L [facility] Calcium [Mass/Vol] 9.3 mg/dL 8.6 - 10. 6 mg/dL [facility] Chloride [Moles/Vol] 99 mmol/L 98 - 10 7 mmol/L [facility] CO2 [Moles/Vol] 25 mmol/L 21 - 32 mmol/L [facility] Creatinine [Mass/Vol] 1.36 mg/dL High 0.50 - 1.30 mg/dL [facility] GFR/1.73 sq M.predicted among non-blacks MDRD (S/P/Bld) [Vol rate/Area] 63 mL/min/{1.73_m2} - PINF [facility] Glucose [Mass/Vol] 101 mg/dL High 74 - 99 mg/[facility] Interpretation and review of laboratory results Abnormal [facility] Phosphate [Mass/Vol] 3 mg/dL 2.5 - 4 .9 mg/dL [facility] Potassium [Moles/Vol] 4 mmol/L 3.5 - 5.3 mmol/L [facility] Sodium [Moles/Vol] 135 mmol/L Low 136 - 145 mmol/L [facility] Urea nitrogen [Mass/Vol] 14 mg/dL 6 - 23 mg/d L [facility] CBC W Auto Differential pane l (Bld)on 11-22-2024 Basophils (Bld) [#/Vol] 0.09 10*3/uL [facility] Basophils/100 WBC (Bld) 0.7 % 0.0 - 2.0 % [facility] Eosinophils (Bld) [#/Vol] 0.36 10*3/uL [facility] Eosinophils/100 WBC (Bld) 2.7 % 0.0 - 6.0 % [facility] Erythrocyte distribution width (RBC) [Ratio] 16 % High 11.5 - 14.5 % [facility] Hematocrit (Bld) [Volume fraction] 27.8 % Low 41.0 - 52.0 % [facility] Hemoglobin (Bld) [Mass/Vol] 8.7 g/dL Low 13.5 - 17.5 g/dL [facility] Immature granulocytes (Bld) [#/Vol] 0.04 10*3/uL [facility] Immature granulocytes/100 WBC (Bld) 0.3 % 0.0 - 0.9 % [facility] Interpretation and review of laboratory results Abnormal [facility] Lymphocytes (Bld) [#/Vol] 1.44 10*3/uL [facility] Lymphocytes/100 WBC (Bld) 10.7 % 13.0 - 44.0 % [facility] MCH (RBC) [Entitic mass] 26.9 pg 26. 0 - 34.0 pg [facility] MCHC (RBC) [Mass/Vol] 31.3 g/dL Low 32.0 - 36.0 g/dL [facility] MCV (RBC) [Entitic vol] 86 fL 80 - 100 fL [facility] Monocytes (Bld) [#/Vol] 1.28 10*3/uL High [facility] Monocytes/100 WBC (Bld) 9.5 % 2.0 - 10.0 % [facility] Neutrophils (Bld) [#/Vol] 10.28 10*3/uL High [facility] Neutrophils/100 WBC (Bld) 76.1 % 40.0 - 80.0 % [facility] Nucleated RBC/100 WBC (Bld) [Ratio] 0 % [facility] Platelets (Bld) [#/Vol] 780 10*3/uL High [facility] RBC (Bld) [#/Vol] 3.24 10*6/uL Low Unive [facility] WBC (Bld) [#/Vol] 13.5 10*3/uL High [facility] Magnesiumon 11-22-2024 Magnesium [Mass/Vol] 2 mg/dL 1.60 - 2.40 mg/dL [facility] Magnesium [Mass/Vol]on 11-22 Interpretation and review of laboratory results Normal [facility] No Panel Informationon 11-22 [facility] Renal function 2000 panelon 11-22-2024 Albumin BCP dye [Mass/Vol] 3.4 g/dL 3.4 - 5.0 g/dL [facility] Anion gap [Moles/Vol] 13 mmol/L 10 - 2 0 mmol/L [facility] Calcium [Mass/Vol] 9.3 mg/dL 8.6 - 10. 6 mg/dL [facility] Chloride [Moles/Vol] 100 mmol/L 98 - 10 7 mmol/L [facility] CO2 [Moles/Vol] 25 mmol/L 21 - 32 mmol/L [facility] Creatinine [Mass/Vol] 1.2 mg/dL 0.50 - 1.30 mg/dL [facility] GFR/1.73 sq M.predicted among non-blacks MDRD (S/P/Bld) [Vol rate/Area] 73 mL/min/{1.73_m2} - PINF [facility] Glucose [Mass/Vol] 105 mg/dL High 74 - 99 mg/dL [facility] Interpretation and review of laboratory results Abnormal [facility] Phosphate [Mass/Vol] 2.5 mg/dL 2.5 - 4 .9 mg/dL [facility] Potassium [Moles/Vol] 4.1 mmol/L 3.5 - 5.3 mmol/L [facility] Sodium [Moles/Vol] 134 mmol/L Low 136 - 145 mmol/L [facility] Urea nitrogen [Mass/Vol] 15 mg/dL 6 - 23 mg/d L [facility] CBC W Auto Differential pane l (Bld)on 11-21-2024 Basophils (Bld) [#/Vol] 0.09 10*3/uL [facility] Basophils/100 WBC (Bld) 0.7 % 0.0 - 2.0 % [facility] Eosinophils (Bld) [#/Vol] 0.38 10*3/uL [facility] Eosinophils/100 WBC (Bld) 3.1 % 0.0 - 6.0 % [facility] Erythrocyte distribution width (RBC) [Ratio] 16 % High 11.5 - 14.5 % [facility] Hematocrit (Bld) [Volume fraction] 26.9 % Low 41.0 - 52.0 % [facility] Hemoglobin (Bld) [Mass/Vol] 8.6 g/dL Low 13.5 - 17.5 g/dL [facility] Immature granulocytes (Bld) [#/Vol] 0.04 10*3/uL [facility] Immature granulocytes/100 WBC (Bld) 0.3 % 0.0 - 0.9 % [facility] Interpretation and review of laboratory results Abnormal [facility] Lymphocytes (Bld) [#/Vol] 1.38 10*3/uL [facility] Lymphocytes/100 WBC (Bld) 11.1 % 13.0 - 44.0 % [facility] MCH (RBC) [Entitic mass] 27.2 pg 26. 0 - 34.0 pg [facility] MCHC (RBC) [Mass/Vol] 32 g/dL 32.0 - 36.0 g/dL [facility] MCV (RBC) [Entitic vol] 85 fL 80 - 100 fL [facility] Monocytes (Bld) [#/Vol] 1.2 10*3/uL High [facility] Monocytes/100 WBC (Bld) 9.7 % 2.0 - 10.0 % [facility] Neutrophils (Bld) [#/Vol] 9.33 10*3/uL High [facility] Neutrophils/100 WBC (Bld) 75.1 % 40.0 - 80.0 % [facility] Nucleated RBC/100 WBC (Bld) [Ratio] 0 % [facility] Platelets (Bld) [#/Vol] 745 10*3/uL High [facility] RBC (Bld) [#/Vol] 3.16 10*6/uL Low [facility] WBC (Bld) [#/Vol] 12.4 10*3/uL High [facility] [place]/lambda free, serum; [facility]; [facility] - Miscellaneous TestOrdered By: Deborah Youngblood on 11-21-2024 Scan Result See Scanned Result Unive [facility] Magnesiumon 11-21-2024 Magnesium [Mass/Vol] 1.86 mg/dL 1.60 - 2.40 mg/dL [facility] Magnesium [Mass/Vol]on 11-21 Interpretation and review of laboratory results Normal [facility] No Panel Informationon 11-21 [facility] Renal function 2000 panelon 11-21-2024 Albumin BCP dye [Mass/Vol] 3.2 g/dL Low 3.4 - 5.0 g/dL [facility] Anion gap [Moles/Vol] 16 mmol/L 10 - 2 0 mmol/L [facility] Calcium [Mass/Vol] 9.3 mg/dL 8.6 - 10. 6 mg/dL [facility] Chloride [Moles/Vol] 102 mmol/L 98 - 10 7 mmol/L [facility] CO2 [Moles/Vol] 23 mmol/L 21 - 32 mmol/L [facility] Creatinine [Mass/Vol] 1.29 mg/dL 0.50 - 1.30 mg/dL [facility] GFR/1.73 sq M.predicted among non-blacks MDRD (S/P/Bld) [Vol rate/Area] 67 mL/min/{1.73_m2} - PINF [facility] Glucose [Mass/Vol] 96 mg/dL 74 - 99 mg/dL Uni [facility] Interpretation and review of laboratory results Abnormal [facility] Phosphate [Mass/Vol] 2.7 mg/dL 2.5 - 4 .9 mg/dL [facility] Potassium [Moles/Vol] 4 mmol/L 3.5 - 5.3 mmol/L [facility] Sodium [Moles/Vol] 137 mmol/L 136 - 145 mmol/L [facility] Urea nitrogen [Mass/Vol] 14 mg/dL 6 - 23 mg/d L [facility] CBC W Auto Differential pane l (Bld)on 11-20-2024 Basophils (Bld) [#/Vol] 0.08 10*3/uL [facility] Basophils/100 WBC (Bld) 0.7 % 0.0 - 2.0 % [facility] [facility] Eosinophils (Bld) [#/Vol] 0.45 10*3/uL [facility] Eosinophils/100 WBC (Bld) 4 % 0.0 - 6.0 % [facility] Erythrocyte distribution width (RBC) [Ratio] 16.3 % High 11.5 - 14.5 % [facility] Hematocrit (Bld) [Volume fraction] 28.4 % Low 41.0 - 52.0 % [facility] Hemoglobin (Bld) [Mass/Vol] 8.6 g/dL Low 13.5 - 17.5 g/dL [facility] Immature granulocytes (Bld) [#/Vol] 0.05 10*3/uL [facility] Immature granulocytes/100 WBC (Bld) 0.4 % 0.0 - 0.9 % [facility] Interpretation and review of laboratory results Abnormal [facility] Lymphocytes (Bld) [#/Vol] 1.78 10*3/uL [facility] Lymphocytes/100 WBC (Bld) 15.6 % 13.0 - 44.0 % [facility] MCH (RBC) [Entitic mass] 26.9 pg 26. 0 - 34.0 pg [facility] MCHC (RBC) [Mass/Vol] 30.3 g/dL Low 32.0 - 36.0 g/dL [facility] MCV (RBC) [Entitic vol] 89 fL 80 - 100 fL [facility] Monocytes (Bld) [#/Vol] 1.18 10*3/uL High [facility] Monocytes/100 WBC (Bld) 10.4 % 2.0 - 10.0 % [facility] Neutrophils (Bld) [#/Vol] 7.84 10*3/uL High [facility] Neutrophils/100 WBC (Bld) 68.9 % 40.0 - 80.0 % [facility] Nucleated RBC/100 WBC (Bld) [Ratio] 0 % [facility] Platelets (Bld) [#/Vol] 771 10*3/uL High [facility] RBC (Bld) [#/Vol] 3.2 10*6/uL Low [facility] WBC (Bld) [#/Vol] 11.4 10*3/uL [facility] Dermatopathology- DERM LABOr dered By: James Bustamante on 11-20-2024 Laboratory comment [employer] (Report) a5octDOxAILld3itAAYz bGFuZzEwMzNcZnRuYmpc kEDwBCwjukCaDYtyu6Lu Y5TmTeReZOqajuRsYUTz GehxrrhlDALpDAM8pdTz BMBuBDpfGWUuFQejJa9q wDJcxKjlHfHnMIZts3hh usBCULquHNOTZPt9i6uz FFDgIbI9yZEqJGgmT8yg izUqgTDgR6Uii1PiMZk7 uS14VSAazK3prCHmXMal qrUqLaE3OIciNBAcUvB7 UVUygQHfGHUsB7mwIDXx XGdyZWVuMFxibHVlMCA7 xWdvd2C4dLHnjLPvcSqu ZpJkTyLjDbMPl5ViDXr5 mLxrP0YgGEPmPbT9jLBq UGFyYWdyYXBoIEZvbnQ7 bZ98DOymjeK8mZZjc1Zf s68hb723vZ5ydYRhWPV7 MTIyNDBccGFwZXJoMTU4 MVDkwUPbV9xuEtQncSCt Y8TeMxZlhXNuB5QvJwMq tZZzA1WvPnXiwKGcBLGh tHD7DJooj848VIF9MmNm TI5sZ0Xnh9L0hW8pmUIl RNWmiDSvEiWgSGJgzl7r aFSnXYnjd5MjWXJ7cfS9 qMEqsKXpCSZhUH01Kitg q6RfPwtgTUF4BBFexdEv l8Grn4xkSgDjduFqH0ey X1WpNBIwFNNlHHQxEwOr nkIny6Xvk0CtgSJpvGg4 m0ihPIXcRELfiSbuz9kf BAI6LPQhM1C2jWBmz3jy AChvVMSwiXN0fpU0NFek NLAwtxK9saF9YZunBJJp nEG2mlT9BCxcBMTtOyC3 lyU9SSklFBPiIUS7ZlBy XLGsp1LbjsqoVoMim8Ja oQTyUQscH14ja280GAKs wkXgF3kgwMOzikvrsMIf cjiiRZirtuT4JUPiNNXw YWluXGYxXGZzMjBcbGFu ZzEwMzNcaGljaFxmMVxk ByGzOJEbSJqoH5igAiXc UcFrMPWZhBE9bXRkc5ew myE6uVMzWC4eUXOhuSKv jlSkc2G9EXF2aETafQ4d lMHnZIXxmIPvtfQasg97 dFObaTF6IRGtGTPajWKz mU7nPAClWPUYxE6reEWW mwVsatKaSGGjeZnnqc1X xMIzjo5xiAUwK7BlbTxb aWVzIHRoYXQgdGhleSBo WEAdNIMhnhhrw3XtWCSu eCZxM8FsEQ5nSZFhvb76 [facility] Work Phone: Pathology report addendum [employer] (Spec) h0alqJPiWFPrpWUiYZiz VrwixfQbOQHhnYRaJ8Bd grenQAfhKA0hYD2ztKvd jOBohXRdWRDtJkVue7bb f290mXOwg3zoNUIEkkco aPe6sBaaF23le9C2Lfbg T73onFBtYZP8SUIqMGXb lPSvCURzNAR0JCYfaGRf W7ebADMcGB8egawnGJpo NRjkGEZpyNO7AHVifNZd P1ZnKBFyNNozVSYuuon9 OdVaMj9ygLGkwWmeQWpd YXJkXHBsYWluXGZzMjAg RKaKUdUVvLD2kNAbwsLi lRFvfHEwZhY2aSKkM0yj jpaayGPpXKMvM27aF80f CfCdPSN2IXrxXRkqdzOv KXPkt6SwOMQkNW2cQXjk QS3bR9K0iHBbXDZdgdHd hXrxl4qmWlAFbGyly3pm r1JhcfGwZA0eg9GfCgDg ZXhjbHVkZWQgYXMgdGhl EW1jpv9fyEL3KX1wXTFz DMSojXYwlG9ifiAdreVl aTJlfN10haRlNYekPYWm ysJlfa1cFS0ccUVnEQMq cn0= [facility] Work Phone: Pathology report Cancer Narrative [facility] Work Phone: [phone] Pathology report final diagnosis Narrative j3xykVRsEGVfoSQiDDaf TdbsftUuDKUnpTUwU2Xe snuvUZqbSA7iZQ3mkObq xWUpdIOvMCRsRuIxz5nu x722eDUje3nqJOCIpcdv tFj2rFqaF49wx1X4Xhkh Y82trCMeDYW4FUWjTBNf yWDzJHCiGLK1AKUnkFMy U8mxZPKpTP8aorvtQGeg JOluIANtcFO5KLZwtLZs Q1BzMOTjDGfqZVJwbub0 AnXjXf6prVQytNycUSod YXJkXHBsYWluXGZzMjAg OE8dB6pCKasyKYxZPDEh UFJPWElNQUwsIFBVTkNI WFEQN8SKEZtwhJTyQONu QW0TNZMHOzJpN8SEXT1W OENoM4CGEYIVVPLJHC1R IAHoRFpfxz45VTV4x1zh aWVsZHtcKlxmbGRpbnN0 YAdGVMPNOTlFZwYrQZ7c DHsNX9PPDPrWHslfTNG6 E0ixsCY9c7ebnOTib4m2 ZUewNHZ0yMjXEKj1CVGm CHgqq5xzVKCoSXige7Ao UViNDKJWXZ0XLU6jpDN0 LCsDHKXATJvnGMX8R0qp sYM4j6iceKAks2g7XBbb BPP7pYombYDkigokXEAd MjAgIERJRkZFUkVOVElB VEVELCBccHJvdGVjdHtc KxjzvOJ1EVxoRzobtR2m dCBIWVBFUkxJTksgbmFt IV4XOMTGUkNYBH41Glq6 GCy4OmywjCcjHbftsyYq jKOnUvOkfZ2FVfLKHF3K FD8VCQXGOQYLQDBIPNtV KaAGSM2VKrcBEmvjXxgj jUB9FFuiMjpidR8okKYL NKDSVpgMOqqqqiKgBM7Y QMWPVU0SbKN6YOL3tYQ3 Kx20MHJsKXMwtDHiGLgt A400GZSqCRetFFCoJsOf GEBsZHCZXQHQD9HASlpl UPBdmUWgFRQhJE6siJT8 DP3xGRCesSOtpq0ctIZe jOQfU2tnWQ10EBihXMTt CZ4hJOLpgFGepBYwaREq qSTjjO91spVaZLkpMLZf fnGevk1pNZSicjCrDGBq cmVkIGFsdGhvdWdoIHRo HFEtTIAvXW2hYMBxvACf oa9lmOHkyGDqQ7wiNE86 QLWtuHKzikC5rGWcpX3f d0kpvJnrzEiyu0DzZCXi EHAla0DfrUjpJMCgpNOk i6JlVUNzdDhuW5PjB7vv c60kVbtwIYXfsTSzUMfb RVWbxwsiFPNJYsUFF2fG LCBVTENFUiBESVNUQUws JDRQTtYRRQBOM9ZKZHtu qQKtRYKvBC3HFLAFIcRa B8LLZK9OUTFuX5SKFTPU WHWYXB7NDVUcQJevce38 VIP7x0ziaNJjQKurSkbc nFBydoS6WSnUDCODOTbA EvKnME7uWOcWJ0BAGVuO HvjgFCK5U5vudKF0x5zm zDNyh0k5EUklETS0lUnI SMs1NXZmNIsuv4vfUWXm LKibo2DfZDxTYJMAWA0K YP0kjNF6NLeITVWSHAjq PNU1D2kxsOM6s3lnkYCo t7l3VMqeJGH8sPncdTFf xvdgIQTsOcOpJPFIXK8H REVSQVRFTFkgRElGRkVS AA9LCYZKTFNpWFrhjs51 JUD5u9inxBAxIBnuSacc bYGmylO0GWbWRJYKACfG LeFaHE7pBOpOV2YFYMzL DcdsTUvyXWn4iOF0m9tr aXWyv3d4JSrtBXY2lRMJ KBMDFoKqY91wDBqEYFOV GQHdNH5ABOLDWaqYADLT NFtiNSBSX9lVp7mjcPYd WDnoAjpjmGLjqgG3THmX FNKYUSdNOxSaPZ9pMFlW S6CLMdP6Qxb0CTr1OFr3 fXtcZmxkcnNsdCBcJzFj iJ4wzCmzcK0kUuxymfQb GVsgS9FOBU0FHSLdIWBg brxiBKMtBkSjLc55VJxl Lb1dBQQqAPEahFNxRAY5 mWSvhX2amxOtaGKrd7Ky wbYkvzIjYLNpBPMpe8Xu eRviUQWsiAXof0ZjVNQk hRiqS5OnM0dau42nYXOb jh7jwZEiBZFhmEKdbQQf FZ4nGUmpbsLcbHT3FSYv ZOHaGy8jFTheQRXwGXHn ZvZ6QZKusGhuajLcxvJx d2tfpn0iuMEjBIOxbzeu vUJ2MTItGej7GyCbkFma Eea5UPmxOQjrYREcLPU2 hr6qkGBxiIh7VKItO01s ZJRtcZCaNyrvB19bZJKK a94bPKHATVIjHtokRRRu vRfcOOGzMHnwdX2xTFUb XHBhclxwYXJkXGJccGFy VIZlT84JFeWQWKYMB08P LAENQPXVL6KPF0pMCCD2 MTIirPQ8LO8oLVjbAEtx QXKySwn5YMC9Kw0nXoT3 TMZ9qBN1IkPVUFFIXAdV O6OkDIQTIZBGHOQjKH2V PNwIBPIZAFXOT02LIQEX LSEVH2QGY2tFIPjVXZAB DGKTW73OKUPRONLMU7CK ECWNOKRTSMmOOJOIPe8Z GPRKUURIWN3OGGoBOhZd XHtERVJNUEFUSFNDQzoz WZS6Z1v3Xef2GQUwqVZc tYqzOLHtqR37Ymb1PFvt iHWpu1ILSz8MGOHJA6EJ DeA1MTNfVZ26ZQdkLWYa zKB3yN6rkdzywymhNCis QFo1HMGIXHWHTA3DPGJX J94MMGOFKCSNN1RCQRPZ KlMVEVAML49FENFLBWWG D3HDE8cPTXJIXiHJRNYP R04RZEZUXVBYC5NBINJO IYZXQvZQNkHYBZ7CYDSD TAIUCO7MIUuWPfHzMEEY U2CGMyGSE6boUSZUBRLD IIArMK4DzW== [facility] Work Phone: Pathology report gross observation Narrative n7edyZVmJQAlpWCyUFdg LmtgamGkCTQkkWCfU2Ft ewasRJlcSJ3lFZ5saOpd qAOdvCDxWVYcZtMma5br v454sDWhn5wrWKPYbsve uLl6cUoaB82bx4K0Ilfk P86bcMOwJDD6IPOgVWPw qGBjILHfKKF7SQXtaWZl K3leKXSzKK2qciwmCFfd WBdnQDKooAG5JWYxpOFm K4SpTJZpZAgqDTYqect3 AsLdJq6ahALdxGiuCOaw JrvxpExpg0WrjQHbHVyp IDUxMDAwIFxcbmggXFx0 XWZdCEavfUPtGR3epUkn RrufoGust6BccXHoPJbx JTRgYILgOSoyMXUgX0RX XGWrHoC7RAS9GTDgWTf0 NJg3PO1JXkOeOZBrFsG9 ZAC3CFMnMZl6CKzhJM7U NKOuQFN9UZYeUfWxUGAs VoKnUWm2UEWkKHuzlwBr IFiySwvuZIxbZ13bkCUu ZFxwbGFpblxmczIyIEE6 XHBhclxwYXJkXHNiMzBc BHPiV1jbIgQzQJTnJjMb AXCaP0hxPVNlVSLxLQvz SZLrSxXrWMAqM6ZszrWr FKbuKANbhd7rmFsjOTyl VNDrWxN8RIXarUP0YV9e CUCiVZSnVU5cMEXiuY3q ICBJdCBpcyBccHJvdGVj uAvwDqcvmCA4KZbtGgbo pZ7vyCGACXBSEhlCTucf ltCrBD2ZDQPEDeWLIG91 RpmrCVv0HAtlyIpjHtro zwOizFPtRzXphZ89LO29 XCYeGYzpy4pbTUYaEJth o4NzEMlUKGPBOG4CZN5j kZY0KYxLHLJAXErcJECl CAxtsHV0j7hffHXqk9d7 TTlfSEW5uIyklFXqbwke nlYnMBAgidVxx7sjun1t ETuyXPXuh3WngIL3FLZo CcvrUNF1TBPiRPGwKWJf jCKpTPZzo5OtG2H3PTGy IEfdr2hkRKHxMXbxd1Ib LYfEAKPZXG7UUK0kdHB8 DUmDZYGDY8gFwJS0HfH3 zPX4If42LLEsOYKzkYMx LVfiJ459S9junU7szpgg QFt0UIOlJDqgx7dpINKr QKmnx6HjUIwZZFQIRB3Q EW9nfQK6XCmJLJCNYLah WPHdMJvicPQ0c6ixxYMg i6m6QZpaMLE9xIuztZNi blxmczIwICBpbiBzaGFw WM1gTXu6UUbeufYpoDAz ZGRlZCBccHJvdGVjdHtc UygwcRS3CPznPizqwH2y dCBIWVBFUkxJTksgbmFt YQ4PQFFTTzFOED69Uajb SxZ7W8hzjZtbArgkbuEa aCDiUdJdlM6qphS2b4Cu x8ftrRRfWTtiRqshqTKb oeG6ZUqCZKBBUSaLZtXt VN2jXOlBB4TUXeQ7Kcwk BkV6P9bbbJhwIlytzqVt uMCmDjJbuX2rmShqiQ8g ZnMyMCAuICBccHJvdGVj wCkcUvwpsXE6CZidEkyd hT3zmHFOIDYJVuqKQyit dbQkPH3TPOKSSoXWEJ27 Bio2Euz1CCx7vWspIfmo arHyfMJhYaQfrD2PcLSb y4EzL1yvJX6hk1ZmLPfq u2KnZsxeUcwapVZ3ZMag MyaddM8hoMBUGXSDFnnL CpezdsJxKI3QOJYXVC9G iMQ0HQY6xIG2SM41TVNi KJMuxROhSSgcD552RPHn BLqwIPXnThFlYPOfx6es lUmjo8YyvPXpNB2ouKEq i2bjKSUciCMhWOW1ULwt aWQgNTEwMDIgXFxkYiBP SzIlUwGxANV8JPH6OdFa KMp7VTujR6BLUEFfDFI8 XkM6BHw5YtV3YXf3XGMQ Wb1uMWC1ZdU8EoY4UnK7 TDS1OKLrMWDuPqFeLRFd XKBqXLxblXYkWQ7pEVqd XxG5WFZrgpZat2BsWDPw XPPeS8zfWuHnLCvwhzTz CJU8LYOwihpiTJAfSQKr PfToZFQhC5ytBgGyPIBo BJmnRMTsZkCjSGAmB3Ny bqIyENcbEHLmda6yoMoh FXsvYUYkNyC3JZXacOL5 GI7yQIVlAGSmML2gJHLm lQ7hDEFVdPCspiPqcSYx hVLosNkxKhadmPY7QUee LmowhP4ifTBPSOYFJqxS OobmnjKrWG1NCIFNHmRX CP24KyakQVo8PIi4zCfk XnunftJtsOUjVqGttS14 XH74EPOyNUbwa6ioARWc ONvru6GdNEbMCVERBW6N AB7dtBJ7AQgEZGEAXElo TUHeQCg4fGT9n8hemGKv d2f4XSjnPQU5aJzylDQo gcfxbcFfZQZppjBgc6ha mj7pCPesPEXax0WboFG8 YQKsTwfdRWU2IRTmYAST dCBpcyBccHJvdGVjdHtc QwmgkOC1SIquIcybdD8k dCBIWVBFUkxJTksgbmFt SO5PCYBWYjABDQ84Rgue ODf8Gaf0eUgkJnwqbeMa jRVeDeEmvG5wvMyadwDd bJDsyWpgAwehoLW6KSbd MpwmcH9ptCWSFTDDPevA QtokbrUrGR5CXMKLNP3W gVS6WkB2bLI0Ps08RUEe IUFhtLVeECnfU445YNHd YWluXGZzMjAgIGluIHNo DEYfRxFiFRRfa6VoEYBa KhQzHRTbCNutcu60EWQ3 y6skaGQyMPxtXkrkpDIn myO6UYyKMGTPMZkLAbGh MZ1tVXjRE1SANZsUEwyn FUBoYMf1tMw9j4xfoEDy i8z5YBawGQP8cVjfUELl qQ46ZDRiGMddv4jdTDIl USsah6XlVMzSSKYYWZ5T WZ9lhDZ8DNtFRGOZUNvn GJYtUSj2jYt9t7ejxPPs z6i8KVlbBKL6aOoyqCCa usugmgDhCU2tYTvfit75 MBU6u7enyFNwWDrtKtdd aVApooA5CZdTZYMGSUrT OnSbSD4jAGfXN9GEPTmG MrmqBBbvOCw4xQi2a7ji zLLkz8s3PBnmUPV4nQKf NGFxeMQpqI0rxtY2ZKDn cH0zQQUgc6ijqTTgEIel IlgecMNcycW2YJyCFQKY OUiMAzAtXT6mSOiIB0TW WlC5Qqn1Otc1FKf8sOuz SbtfbhJpqLApNzVnsP9w wQzzcX3zNlFhBZEdBZwh FPHeaMInBBdvCOJor4Ic MFxlcGljWHNhMzAgVGhl IHNwZWNpbWVuIHdhcyBn vm0eb3PzKWP1PKesyd70 UZT6h9zttBMkQXwaQzaq yRXqvyS7QIsYRHRDNJkX KmObNY1hJRfYS3SLZKrU Hdd5SYL1Jiq9pQq0z5tk lGLun9r8NYdfFQG2cDZc kPxarBM9JSYGmFZpOX9q NXeqmp53CJVuORbkb6ia IIReZVmnn6TqPQtYXZKI OU8VMT2lwDR4TYeQIHTF SHp6QKY3Bbf7hHe2w2uv cWAzi5k6VNnzOOJ9sCkb cGGjfpbsryPkZHA5IPXo qQPbQSH0YI6lcAfvCTRd J7MuH4UmydN3FJEgoag0 ALWYKZWWLEwULC4LPRIZ JUGMHP1XZDhGZyJlMHBg JRxqHEVoXdukCJx1Rp8d TfC8KfSrmSW1Ow4kXMqu FTb3XRSjOegtJPr7FN4q BhO1WcN4jIC9Iw5zFGMx RGb1OAKnFcf6Eck2SM0e KoKsONgpeSr6MmNQGWYS VTpWC4IeUQXNJBDLWEIh LG8XUYxXPXZNKXFUD05C OAXNMWESJ8QUQ2tTZPwT QAICAVAOC60NGZGFHXQF K8IHWLAJVEXEMPyARSKY Wb9DGUZUZXOCGL4GUKaS HiEeACsiKAIwzKD7mEBc nR2vWqI7EwN0HH1fZNqx KFVfpLL6aUIqNZTiGpV1 TdT2HI9cVPyoFORepLA9 gPGkRkDuPDUhNfD6TlAs JU05JSpqAFOnsIH9cSiw fpyoBFhmVUz9VWy8CFYa jXYlbDgie7zrdahvKKEa PPh1Cwc6CJWamNZlaVoh sYVfOJqvCPTrDLt5J3v8 ZGVybXBhdGhlbWJlZGRl TVfyDNVrZEr2DTw1XFSg dDZbsZxlwxb3Biv8Gmha mNdth7Dcag6oBJDqO7Br d6Zsfrt9QAG3Dsj0BZVD JBXKJP4HHVLMV90SLPVI REXOY2IZYRVHQjHIHOUK M06VDHDGVSSMI9TTE3oY TWMNAmSHYPXNC74KSVHM CQEHH7SGQWJZVLQKWzBP LhMRCB6PWVBLCNQMPP4T EQnOOqZhIOQDO3KOBxRZ Y4arYIRIJOVIVGAxDW4S fQ== [facility] Work Phone: Pathology report microscopic observation Narrative Other stain w3dlvCSaHUZquJIhLLmb XplftkPoNHAvgACmX5Kn fezyWLlwSF0eHY6lcLeq pWByqEWkBOYvDhSah8ln n198bMEsm8qiVJXQanti fTn3eIefB13hi4G1Nllm J28kkEYqZIC3IYFqJDTz uDRzXXHmFSV6PJAkeIBl I2voWSNvPZ7aczooDPwp BZkeEVBwqYB5SQBeyNYj U7MuBECsGColWZUasns9 CjVnLd6bkRFuxYqzWFzj YXJkXHBsYWluXGZzMjAg HQ8vHFgtrt0cW52roWPy HOuikAykMHEtn10darT3 ZWFscyBhIHNwZWNpbWVu GCMjZZKiQDx8UB1pajXc bnRvIHRoZSBkZWVwIHJl dGljdWxhciBkZXJtaXMu IEluIHRoZSBzdXBlcmZp Q9wmyFFmpkHcZSRboIYs ZXJtaXMgdGhlcmUgYXJl OFviwBDeJPXus6Ior5Ev PNBbho8bmABoyzE9aOKb ZMJexvSaARzda9RsFMXj gru1HLNpo87qGFEjbbij NIAxOc3zYIzgft9wL76v cMAsDC4dbKifpEQyz9nb m7KrqJJySHy3zPBnIGtw f6w4qFYfPeVoUGYpxHgh r5W1uRLzKYRiPGLfVVAb FRWef33zjDB0GTUsi7x9 sVP4nHRyZHQfUZXtnDju IGFuZCBpbnZhZGUgdGhl ZQMsvh4xbaHoilEzh97w OUKiOWHvt8rjxcNzVNAv GYYxdIGpvtIfMoMlKG5n chEkZYYqwRCgTO5aIVWf jjFpHOxdh7AqTFJpncj6 ISGsc15iQASeNABkSYRp onHmTJpyPLRhr1NcRYOe tJxfGBLcQVVvk44ilHoh BYLvGEUvDJAoKZUmmn8p IHRoZSBzdHJvbWEuICBB dHlwaWEgaXMgbWlsZCwg QB2fUR9pgC3zTVAfGBKl IHJhcmUuXHBhclxwYXJc cGFyXHBhcn0= [facility] Work Phone: Pathology report relevant history Narrative p6pqoCWrBRPyrMFfGCnp UjlyukIwDNCmkDQqQ0Ml vctzKHreEX1gNB3hmHnw kFXzoKCvOFXqYuYdm5rs v513jJQrb4qoUIHKcnsk bJt7q4fhABWGXDonFJQV MRh9gHgoC14vu8K8Ezyr B6jgTVYvOFafGYCmNEsf lXScFGh2JEHfsZSfhdFh FgWuNEJemGXguJQ4CEVk HN8fqjpsHYvhDEpfAQUk pmL4JZHmxXLqB6ZmAASv FK8svgokXES9BJtoFNVf CUT5SdHzASKha9Pgejv3 MjBccGFyZFxwbGFpblxm CTcgqmKlKHIbRBWUHI5k e9Obi94rEVaeJ12fo7nk CxKAtTT4WXHcEYYqa6Nm z7OqIIJkDkCgDMPnybly VSRytCXcFXGypX6lY1Xg PAhmq3CtrysjG1VrV8aq wOAUMIN1FVG9EjAimLUx bmljIGhpZHJhZGVuaXRp cyA+WmSoqMSwcgVrz12a fytotXPqRbY9vF8xz9Ch EC1iljD5mEJlUJKwG8NB RS5elGWdvYO3fFQjuFOx vBQ0pBkhsHJkl2S4bTJk CIFja5PvdYAgcroiBBGl EOScWSfpEwAuN05tcRjy KUUtwCq5AAWtUKWmIW3j JChwHcKxNlY0rH2ev3Ob d7n5oLWahSHplTGhd97e fHwqptVsogW0dZRgoWFb wEFhkWHQH2HhzIDdiR== [facility] Work Phone: [facility] Work Phone: Magnesiumon 11-20-2024 Magnesium [Mass/Vol] 2.13 mg/dL 1.60 - 2.40 mg/dL [facility] Magnesium [Mass/Vol]on 11-20 Interpretation and review of laboratory results Normal [facility] No Panel Informationon 11-20 [facility] RBC shape Nom (Bld)on 2024 RBC morphology finding Nom (Bld) No significant RBC morphology present [facility] Renal function 2000 panelon 11-20-2024 Albumin BCP dye [Mass/Vol] 3.4 g/dL 3.4 - 5.0 g/dL [facility] Anion gap [Moles/Vol] 15 mmol/L 10 - 2 0 mmol/L [facility] Calcium [Mass/Vol] 9.3 mg/dL 8.6 - 10. 6 mg/dL [facility] Chloride [Moles/Vol] 100 mmol/L 98 - 10 7 mmol/L [facility] CO2 [Moles/Vol] 23 mmol/L 21 - 32 mmol/L [facility] Creatinine [Mass/Vol] 1.25 mg/dL 0.50 - 1.30 mg/dL [facility] GFR/1.73 sq M.predicted among non-blacks MDRD (S/P/Bld) [Vol rate/Area] 70 mL/min/{1.73_m2} - PINF [facility] Glucose [Mass/Vol] 104 mg/dL High 74 - 99 mg/dL [facility] Interpretation and review of laboratory results Abnormal [facility] Phosphate [Mass/Vol] 2.8 mg/dL 2.5 - 4 .9 mg/dL [facility] Potassium [Moles/Vol] 4.2 mmol/L 3.5 - 5.3 mmol/L [facility] Sodium [Moles/Vol] 134 mmol/L Low 136 - 145 mmol/L [facility] Urea nitrogen [Mass/Vol] 15 mg/dL 6 - 23 mg/d L [facility] CBC W Auto Differential pane l (Bld)on 11-19-2024 Basophils (Bld) [#/Vol] 0.08 10*3/uL [facility] Basophils/100 WBC (Bld) 0.7 % 0.0 - 2.0 % [facility] Eosinophils (Bld) [#/Vol] 0.43 10*3/uL [facility] Eosinophils/100 WBC (Bld) 3.6 % 0.0 - 6.0 % [facility] Erythrocyte distribution width (RBC) [Ratio] 16.4 % High 11.5 - 14.5 % [facility] Hematocrit (Bld) [Volume fraction] 29.6 % Low 41.0 - 52.0 % [facility] Hemoglobin (Bld) [Mass/Vol] 9 g/dL Low 13.5 - 17.5 g/dL [facility] Immature granulocytes (Bld) [#/Vol] 0.05 10*3/uL [facility] Immature granulocytes/100 WBC (Bld) 0.4 % 0.0 - 0.9 % [facility] Interpretation and review of laboratory results Abnormal [facility] Lymphocytes (Bld) [#/Vol] 1.78 10*3/uL [facility] Lymphocytes/100 WBC (Bld) 14.8 % 13.0 - 44.0 % [facility] MCH (RBC) [Entitic mass] 26.5 pg 26. 0 - 34.0 pg [facility] MCHC (RBC) [Mass/Vol] 30.4 g/dL Low 32.0 - 36.0 g/dL [facility] MCV (RBC) [Entitic vol] 87 fL 80 - 100 fL [facility] Monocytes (Bld) [#/Vol] 1.14 10*3/uL High [facility] Monocytes/100 WBC (Bld) 9.5 % 2.0 - 10.0 % [facility] Neutrophils (Bld) [#/Vol] 8.58 10*3/uL High [facility] Neutrophils/100 WBC (Bld) 71 % 40.0 - 80.0 % [facility] Nucleated RBC/100 WBC (Bld) [Ratio] 0 % [facility] Platelets (Bld) [#/Vol] 758 10*3/uL High [facility] RBC (Bld) [#/Vol] 3.4 10*6/uL Low [facility] WBC (Bld) [#/Vol] 12.1 10*3/uL High [facility] CT Chest and Abdomen and Pel vis W contrast Mp 11-19-2024 UH MMODAL UH MMODAL [facility] Work Phone: Radiology Study observation (narrative) [facility] Work Phone: CT Chest and Abdomen and Pel vis W contrast IVOrdered By: Ravin Hyatt on 11-19-2024 [facility] Work Phone: Dermatopathology- DERM LABOr dered By: Ashley Ramos on 11-19-2024 Laboratory comment [facility] (Report) [id number] bGFuZzEwMzNcZnRuYmpc dYKxLGirwbBbAZpob9Mq G7JrFiJbAZewdrFbSPPc RfdljfyuDYQaPEO9zuCg SMDgTSflWXOlHYorCj4a eLMomRfvTbSpSHNpt2pl xjHDJSfeQGYBPZl0p1rz XYCmQcI9mRBgPRgrW4pp lyVnkNDvP7Hvu2HzOJq5 qK41ABJqdX0zjCOyPYjz cmNhLtU7WHthHIWjZgY4 AQZqgMYvLUArK3etCEUw XGdyZWVuMFxibHVlMCA7 nTyxi6C7yEOfrTBdgQch HuZxKdRfYyDYa5VcDJj9 uOurL2MbFGQmCsP8uKZz UGFyYWdyYXBoIEZvbnQ7 bA33SFcmmzG0zVXlu7Kk a30qc197jM5uhLPzUXC5 MTIyNDBccGFwZXJoMTU4 UFFcnEBbD5syMlUoeVNn T9DyImXiwDJuO0GmZvSw fJAcR2VnXyUwwDFxPZGb pCF8MXeww588WAH8FuWn QB0tX0Wmk4R8cI1jnIRq ZGGbmNSlXjOqBYOxsm1a yCCqTBnzs5BmZNF6imT5 gYLhhOJjHCBwCS43Ndlu r6BtBrxrSLR7BPKcjoMy v5Cqj2lpTpYnrsUsM5ri B2VeWDJlCWCqBDCvXfHz goUxb8Ivw4VqxZAqzIk6 w4vdXQUtQPIqgRcwm0le XDI7LYTrO7Y2dMKrh7yg UTlnXZMxnJA4peT5GQgo ZGKyiuA4nhT3BCcsPITs zTS5pcY4BQszGSVaFsR1 oeF7JUcePYFiDPG3IiJo AUZau1AohncsIrBbs6Vu sPTwTYjeI77iz186SBLj dbQkB4vxtSGcgsevxMPx idunVHmnflH0DHGiWBBf YWluXGYxXGZzMjBcbGFu ZzEwMzNcaGljaFxmMVxk FpLeHQJjXItiS5umUrKf PqCoCYODtET2cPXuo0al qqY9tDOhDD6rAPGeyOEz haAby5X8NOI3rEGcmA5u xMBwUFRxyADqtiEffw08 qEDsmMA5ISFpDQKwiBYr hZ3kTWEcIHRNqK6xaYTH aqZafvTaMOQdsKzosw6S wVMrqn3zdTVlA4QfkDyk aWVzIHRoYXQgdGhleSBo LDOfJEWdonzlp5HjTFQq iXUeV1EtVT9kNMGscn91 [facility] Work Phone: Pathology report addendum [facility] (Spec) s4tysFWbSJMzvFZdEPiz LecwbrTcQTVhwUJlB0Nx sftePUcnCH7kQZ6ssSkl rFXakFBvZZAuVcUnh1mm k262fMGyc2eiJPUThepm xYa8dLssC26tu1J4Erim B58jaJLhNMB6FOXhRBMo yMTbLTFaXER5ABDwhMKz W1gyBYTgFQ7owdxjPRrc KCxgQAQyqQD4YIUvkHOl M2IhCWCfKCnqSQVhkyf7 SbWtSm8diIOokOflDClf YXJkXHBsYWluXGZzMjAg QVWSf81fhvLLRYDrx6Du rO6sRBMekeZpb6flYKTb cc8iggpqbUAfOGUyxfYr lECymV7gPBErhsP0fK8e ID2lTSBvac0pK4BwvkHm sUagq3KqBBOpLmAmnmT5 jQSozBvvo5Y6QFUmYJTv XCJqqCXsZM1pLYAzyGbq IHRvIHJldmVhbCBkZWZp yno5zWBsCUYmsSxqlFPj PVAjz9UxaBNnTYjnQZW9 [facility] Work Phone: Pathology report Cancer Narrative [facility] Work Phone: [phone] Pathology report final diagnosis Narrative k0ulaQZdHWMldYWbVNnj SyttvaKdQNGonIAdI9Dt bpstTEcyQB5qDI9rvQrp fMFmwFBeYLFuLmRiy4ta y290nVSkg5heZGFDnwxn jQh4oVfnG28ee4I2Opml N29btUZhKDE0GGMdTRZh gWAyCLSdHPV9XIEctRSf H3dgYILlKZ5dgbgvZJxh PAamQJUklTS6KDSwiKRm E1CnXBQsYLdtFBUknfb9 AjTnRy8pgWZlsBdnHRkc YXJkXHBsYWluXGZzMjAg AB4kX0rRMubiFKiAT6fq IBQXMnXRHYVMD0IQDSzc lJVdGRHfTA9AIBCBHdYb B0ULGN1HQTRlO4PXCBCQ VSPYJL2RSGOeIMfsed10 HBS6p7eegWEaCStzRqxx lZOypkX6VKyBKRJIPFcK OgSzUB9kGVkUN5BDNJfX IcuuWXR9M1ztcPR7s7tm oYPzv8d5VCblLUO3tFqP YLb6NOQiNZbwu5mbPWSk HOelo7FhLJyHAGGKVE9Q VO2ysBT2CLqTPMWXSEpu HTU2P6sxaQA1g1ggqLEs e3a8UEzaCER7tJhfqEBr blxiXGZzMjAgIERJRkZF UkVOVElBVEVELCBFWFRF FrWPPwtuHP6tMRmFNITI KSHnRD8WEOVIAHNGJSKY JVkERdGBEX2LFmySNcKw AV3iJOdIF6TuFYjSGwWP AE5NNJWLN3GIG60pZQVH QTDEH14GUT9EEGcvpDKd FXJwgzzlIEJCe26hXV52 OiBBIGRlZmluaXRpdmUg HOXcHUFnoKReDRK4kVEa rR1zuaFzjHAwmn21LZWe sSZjC2tdjNOtDTcyVNEr VZTojgCivXRblWIdaF1v dGlvbnMuIFdoaWxlIGEg cHJpbWFyeSBjdXRhbmVv qTZmq8M5JX3eqPDrG0Pa vUEeXEFghH1cjFSdfQDl UzY0d7HzTCheECTeMTWq k5WurSoxQWQaxLAzk8Iv OFLsjJccV5RcF9jkg21i JCVojj6bdMZdGFLsxOEi gATvUIFhsoY4pXUmxV7u dGlvbnMgYXZhaWxhYmxl LlxwYXJcYlxwYXJcYjAg Ek4eV8yMAmdnDBQTSWYW CDKNM6YSHdquBQMBE5fa QklPUFNZOlxwYXJcYiBB O5DPQGtVC5tKXIMTIHVN YZ4QGO5ZVFWEISWUPRQJ QyBJTkZJTFRSQVRFIChT OGMeZ42NZOHPOFm7RBFd bzxuGRCrRrIoV90niOTr dDogVGhlIGZpbmRpbmdz OCEzPWZbn5Fyw5DtD6vp jIDsRC6rDL4sqJBvUKFk KEEyJHAdnkHqIK08DBYe WLXuYDBkCWRif1YdL8mn c80xXzL4pNPmsjK7aR3b MM7hUDJyrE5pOSZpUSVt VU8dPOGdjdioZGKxqOwf IOUxSAcsigT0LVJsLnRs WfZzTZG7rm9ucMWptGi2 WZEoI14nLQQjgVSmEndj IoYWLLWWTIXWFdHMD0jH LCBNRCoqXHBhclxwYXJk LLHvJWYlzHZwTYLyB70Y SiOZDGXDA10LIQZPNLFM C5KVT4tLVAY2TYIhiVF6 IHIILBHHMSiBL1FqTZJC IIEWITTnFQ1SJVyJQWOE HICMH13DWCRZBFNUY7HI D8mGIFdWMUQETIBYV03H LINFDIMCB5HWRBEMUDVC ZPjFIOQIIa8EIDRSGGMU MQ3LBOmKXmHcIBnUXBLJ ENOFABVXRpdxELQ8G6g7 OLCRZQERSS9EDSLQU25J DNXWQROIV6YYMIKKUeYI XXVSJ32IXFPGXVCWH4OV N8yEMKKEBwDVHYJIN39P FQLJVNKJG1WIWGEEZJAS ThFIQwMVDL4EMBEUAODX VM8HLAuAXgDcJKVKT6WB UqCDA2srYEZYZOCPVHKb RU5EfQ== [facility] Work Phone: Pathology report gross observation Narrative w7lriMTxYIDajENgUMgu ZpbzguRzAXYprHNyL6Jw hdheESdcSH3bWG9gvDno lIAkfAIbUQIyQxArk2ip y349oAVuq1ypJYXNhxur gVi6uNqjI26fq6A9Oxwz F78tbKUjEYU0CNZoTBYd eIXeVOXvYRB7ELLyxPSd F1rxHXQaYE4yhtqjONgz IBvyDUTagOH4BCNpsFGt W0DaTPRlTMzqLCQpvph9 YtKlXl5umUQubErbWEha DwwcySfyl9OxmESaWVtg IDUxMDAwIFxcbmggXFx0 FVAtPFqjhOEnDK3haFcj MnxmpUhnn3JmdPLnHIsr AOWhINOvLNpiICFeV1SY UMTyToS3PCUvLdGiYXo0 QLd7EP4QDrNnNFTyLqQ7 FXMpKOZsDTf4TEijJZ0D IDEzNzQzOTUxMTMgNTQy ChgmHSg3GKTrDKobwoVg IFxcZmwgXFxuYyBcXGZy fVxwYXJkXHBsYWluXGZz MjIgQTpccGFyXHBhcmRc d1MvHJzmrBxrSKXqLuEm q2PsPWusfDcbZIYvUqDe mLahrS2hOxLmVUIAJPXi lKTiGHDfihTya4UoKXnj ilPzwxHjLBMtcGI5YChc NCBtbSBwaWVjZSBvZiBz x5fyPzKeMKRyfWBbFZTj p9SaK3Q1LUBfECois6br RPOaITugc2OcXIcGWMFT SN7YXT4sqRY8LHoEEFOA G2pRuRV1EiE2sIH8WC36 PIQkELNciGSyKZxrT636 gDUba0cqjAJzZCxeYhow vAOqxuX2HNtHIZRBPLpD ObKaFL7gYPbBY5TOEvT5 GsqzSQk4EHploCqhAcot uxPuaYGlYsCnaQ3bzLfc xN9bVsPgXVRkoA6xQ79l w8DlQVIAhRPxytBciGHp oHBnjYmsEejxnYK1NPlg AtacgH2faAQHDIEYOpfX SpfwkvCvVU8XXDPQIwKW GG89PxboPHx5GyntkNae FhrmgySmpQPqTdWpsI6a eWxpbmRyaWNhbHtcZmll tZA6HAqlApzikT9vcCGH ANTXKkgKBaymgzEhFY4G VYXACO7GbKM2EoP9sZK1 Zy61MBRzBOBesKMpWBoz D759YSFsIFkoUQOdMzLp IGluIHNoYXBlLiAgSXQg s2AkJEJbWzSsARWeYNbh uq99VWQ5p2lrwYCdDOgy JpfppVRathV2USiAJZQI BExKFzGyMM0yIOzPS6KL RUdJTnwzODIyMHwzfDN9 q7svwJRha5i3SWydNPA5 oAarPMUllQ09TGWxWCij i5oaEIHdHCdac3JxQZhM MIYRYA2JST2kkSP0RAuD VEVORHwzODIyMHwzfDN9 q8gugRJxw1z9UYqvWXX0 dDsuzDXuotddejBtFP9c ALympp93BNW3m9omuUTi BMnzGpkyfODefnA4ZFqC YHPVYRzXWfYyTI5gGMhR L9DKXEnKGflrNRhoLVd0 qID8o2xryJZwa8d0DCpj DKX2nMXwXLVobVSpkA9y vvZ0XJYvjF3eZZLtf2lf aWVsZHtcKlxmbGRpbnN0 RLeEONSZDJrXNlNqGL6n UBmSL3SFXtY0Qal1Zhm3 CRl8jBxdAgykupFutOFg JyHdyU4xwXprtR3xUyZo IERqDJIeg2ijkOndt1Rb tXWxRN5ykKDdf5jgWOGy kDNtLXB6DRcgwNWvMEVz MDIgXFxkYiBPVlIgIiAy SFT0KAP7ShYbOSx1HKlo I6WFJPEjXHZ9QSq3GwPw DdD1CNx0ZQJMTq0mTQU5 VHW9YGL0VuZ6LFC6VUOr XHQgMiBcXHNzIDMgXFxm hILkIG2oBOmoRaU2ZIMa foMbf0DqNLVgAPAjB7gw VnXrONjpobUxWVR3JJHc clxwYXJkXHNiMzBcZXBp T4hpZbLnASXkVKfyNGVh JyXaCdQbCQn0ERAobU8r Vd5jjZIdrI4bdDMlLUS9 YLyrGHJ0FCJirG2suQty L6Dgv3Mje7dsci0vIHh8 YLnuIXwgqo41BCP4t4nv aWVsZHtcKlxmbGRpbnN0 JXfMVZAFPMzPPpRiYG0g WYtOH7ATXXbIBvblBUHx LMm5sEN7n1vbiSAom3x0 JDydTSW5eJQgthpdMqxs cDV7UWoySzhpaJ7iwWQZ WWGKBhfFOcyffcXbGV6F VRNMSJ6GcLA5VyZ5mOA2 HO72ORSaFIWjfZLuFKsn U578GREyXAaqGKHlGoOy DHfdSHRnnD8mSdZmCRFs pYTzUFBbj5PoL8B9UDFu CPymz6xhSWHpICvbf8He FUdWBNMNHL5KVJ9pwOC1 XCiQXAVDK4mDhPD1QzM1 hVD3Kv13ROHkWYAlfNGz CTgzH795D1vlrY5xlqck UYe0JGMdTDrex3eeOSTo GOswu9ZsSDkGBBRHIF2F CK3fvJA1DRwSWXTCDNln BZZzDBf5tIR9p5sysWZz x0z7JTrmRAB3dRjoeGAp blxmczIwICBpbiBzaGFw AY4bPFx0MIxrxaUvdQIi ZGRlZCBccHJvdGVjdHtc EsofyLN2ZMguVkvgtY7w dCBIWVBFUkxJTksgbmFt QR9GPQRBGrJYPW53Keuw PuI5L8o4kYsbFinpvrJz yUJeHsOyaO1hhdO4u8Oo y7yvvWTfWDvpRmvanBBk pzL9YPiBQUIMWItQJcJi YU8kGYmFJ6PAPkA4Kslk MeE4H9t8pFzgToclcoPy yIIpXgLrpS6hdUsnsD3u ZnMyMCAuICBccHJvdGVj jFeuFbvjiJB1KOldGovg kA5shQYNGREUGheYXzsd bxPcFM5OLCVYXfHUOF96 Oar1Dwz8TPs6pTnfJaru qoJqwDRdWvRuqA7RjKBa f9VwQ2wiTO4gf8JcJPux h2SdGufuEauuoXW0AJbt UrfnaP5yoDCSKLRJKemZ ExxoghGxOH1QKRRIAV4C oOJ3TRU1lPh6BZ44WRCk TIOxdBSwJSfxL091FPJt YWluXGZzMjAgICBccGFy XHBhcmRccGFyXHNhMzBc DKPxB0ocECKbWDJyNWKk wAYrcE9vtcT8NXZrX7Zq x6RgARPqgBGfzVZdkCWa iMdiLfxltGF7SAuoNnjy lH6nxWYGHRNRJyaMJido ztElJF2DBQJLYqFGFT99 NCZ7HpP1NTz3fTrwFhcs jhDxcYVhDlOrwM1WGQB3 eARvCTLcpNqnkeIbk3tg aWVsZHtcKlxmbGRpbnN0 PZeFJZIQNEmNThUbRM5j FTmTQ7VJWoF0YON7KnQ9 TEe3rAuuQwabxsJtmPIg IpDsnI6kfBgfnZ6yGaNj ZMOlUMbpXXLqQ0NdL3Hm bpM9p8jiuCezx2AcnFKg CQ9zjJAtIFAdL00AZsTQ BLBAV33SUULCIQBLW0UR N1nMRUR2OdD8lXB6NS8f ODIxOXwyPTJfMzgyMjB8 Wz0pJrJ9MZQ3kUX6JF6o ORCbGGm2TBXrBrdxBDj0 Sv2rEoZ8CsTqtBd6Rr6n DYsoGDv0PLJzJPE1NwQ9 BO7xSBOFVDRKGEgWFA6Q ACBVZIFOCO2PRpVfU8nX RENBUkRfTUVUQURBVEFf YvOCWV2iK2nCSAQGIaBr VLOHCYBTHZFvPR5HEMFO WFPVFJ3PYESWW59PDRNU NCXFT2QVD9aNDXZse6Nf uh5dMCBrF58he9M7Yrjn MOqtfUFsy6Xmxp1uQUTt h4owrOQ4VxchZQlkdLJh u4Lkrm9oJGPbUE3jYYLy XZZ2BaisJuRigUPow5Ox qo1hZAAcuB1kDyE4BBS4 ZI03QUozXDVudLA6rCIn dU0fCgH2AoR2RY08YSwb RDHtkQS2dBKaPZVbPjD8 BgK8AL30FZsaWVDzhYG2 tVVqFpJnVDAhTiZ9WmBl SM47ZShlLVOxnBY2iOmj hpiqYOveCNa9OTg3RNRm jAMdyBmlfb1fp4KrZbZx KSboDZ2fDWzDH7ICC5bJ GYEtASXCXKHMYZJhFE2D LWhCVN6RYBPtHQFNLMTY RLFcZoSEGJ7eTUzKCS7Z TNKoKITTITINFVIbOF1J NEDTPW8EEQEITJRBI07A KKVWSRPPZ0SKG2bXGFNV RYSDHlMKVzCYLN8HWSXO TUCZZZ4XMqZ1 [facility] Work Phone: Pathology report microscopic observation Narrative Other stain q0wccYLwSLJxiQLhPXou GonxlsXaIKQsaCIvB2Oq hzmhCSwlAV9kWV7nbLet oEJpfPUdUXLgFxZni3zk x788bXLvx5suLPDJuged rBx4hKxvB08ge8Y9Fzrh Y30uxHJlVPU0SPOaDBVr dBNyNRPuIWU4CVBhkVYr O6jjQGQqEJ6xmizjAMis BVvqBOPecSN0RHLfuUTk A5PqBCRmXIvfJRYnyna2 GrJmMk5kxBWbxKtmWRgg YXJkXHBsYWluXGZzMjAg GZ0sCDcuOIS4ojFhDELv s5CinQBqXDWxPTjvZYBj uzBmth6voXPzoCflgWSp mDPxLMGcaRdvc6R2tHPk kSVmAR3piqU1wEUmNZmh MXZuoQCveUVmeDpds61r KN28J2rhAHObiKlkr00z fhZpsCRkWEUhiaOlo8Vy QBLyape7FRChm92jDNWp dekkYTItPb6cZAoyRJkv pNT9p2y2pYerVKYfTJDC m5QzgrMbjNIachSeCHFf N9Zkr27tAH4oMJHnNETg yG0fnDWdsA8at4qzi2Wz J0pgNY5ffvU0RPYrCKEo xGKbow3ijJApH9HolJki p0vfWWotcPpzTUQqOA20 msGwWSIftXX8JCVzNh2c bRmpmRfdngStg0IsVE4j VGhlcmUgaXMgYSByZWxh kQw1TMo3WPPxsnHuPGUp rLGhjmjpEfFyd7nndDP3 mL0dZSNiO2RwdASspH0y sA2vBCjrlzBbvZAfj5Eu HDCqvJSqMVhpaB4tJAOq uMEjyiQty69xjpLwoZa2 HOEiktu2BBWbqSxkgyVl mG2edU4bqHTmoSCpsLKc YyBpbmZpbHRyYXRlIGFu ZCBtaWxkIGRlZXAgZmli yi8dqCJqw9m4mMBnk2Ne yIUtRZfeh1I7aBFoWUTy a1RnpG7sgGWeEPYlgcnc YXJ9 [facility] Work Phone: Pathology report relevant history Narrative n8qdeTNeXYEgrTDzNPyh CihhmjDhRYXtdBYaU8Kj jvtxZCloOE5hDV8rdYjb rTZguSRqITHvAhQbd0ah g172zOXsu2tlTORHkgbi hAz0k7tfUXJRNXdvOCKU OEg3lRgzO47jz2U5Rqyf O7pzVCSbGBnbWVEoCZwc mIRrXUu1CRZagHQkgiJo WsUeSZEfhWHpmSK5WYYz WM2rkmccPDsaCBikQAUp yyP3JXTbbNEeG6OwRLIn UZ8jafzkDTV4HXbqJEXv KXP0LtJtFUSjg2Yaxxr1 MjBccGFyZFxwbGFpblxm DBkcjiPcDAQrQIOSFH6g z5Fpd38wAVeiR33uo0ha FjBVdAW7PUOaVRJgj9Wq b1PkYSLvPpTuJGCcklce PETjrWGnVRFeaW0jM6Lx HRegu2KtefsrB5SwK6hz nCROCDI5IYO6VhAEqRR9 aXRoIGxvbmdzdGFuZGlu NvEoxZRtRPHplgs7zQAm v2PkvKlnFCT0zSGnP1rx IHdpdGggYSBuZXcsIGZp eg5lYZTccYhjKY4tl9Ry kFyayCJmxd0sKUYrkbOk OXP3VL8qnwMeBJjzbFbr SKd4pqNaHJKiLLbwPGCi IHdlbGwgYXMgYSBjaHJv fyzoRJGrK1AjVB1zYTiy TfGsXsR8yZ0ma2Saz4e0 oBCqxkK9hgR9CRXyGf8f NJLpKRBfoPkhV0yjl29w AdXFKcZ7zr3oETDlgm6e pH5qkhE4uOZcir2mfQKa tG21ksOoBYaaBUUqadFj dc7lGDovUOW5 [facility] Work Phone: [facility] Work Phone: Magnesiumon 11-19-2024 Magnesium [Mass/Vol] 2.06 mg/dL 1.60 - 2.40 mg/dL [facility] Magnesium [Mass/Vol]on 11-19 Interpretation and review of laboratory results Normal [facility] No Panel Informationon 11-19 [facility] Renal function 2000 panelon 11-19-2024 Albumin BCP dye [Mass/Vol] 3.4 g/dL 3.4 - 5.0 g/dL [facility] Anion gap [Moles/Vol] 14 mmol/L 10 - 2 0 mmol/L [facility] Calcium [Mass/Vol] 9.5 mg/dL 8.6 - 10. 6 mg/dL [facility] Chloride [Moles/Vol] 99 mmol/L 98 - 10 7 mmol/L [facility] CO2 [Moles/Vol] 25 mmol/L 21 - 32 mmol/L [facility] Creatinine [Mass/Vol] 1.15 mg/dL 0.50 - 1.30 mg/dL [facility] GFR/1.73 sq M.predicted among non-blacks MDRD (S/P/Bld) [Vol rate/Area] 77 mL/min/{1.73_m2} - PINF [facility] Glucose [Mass/Vol] 105 mg/dL High 74 - 99 mg/[facility] Interpretation and review of laboratory results Abnormal [facility] Phosphate [Mass/Vol] 2.8 mg/dL 2.5 - 4 .9 mg/dL [facility] Potassium [Moles/Vol] 3.9 mmol/L 3.5 - 5.3 mmol/L [facility] Sodium [Moles/Vol] 134 mmol/L Low 136 - 145 mmol/L [facility] Urea nitrogen [Mass/Vol] 15 mg/dL 6 - 23 mg/d L [facility] CBC W Auto Differential pane l (Bld)on 11-18-2024 Basophils (Bld) [#/Vol] 0.07 10*3/uL [facility] Basophils/100 WBC (Bld) 0.6 % 0.0 - 2.0 % [facility] Eosinophils (Bld) [#/Vol] 0.4 10*3/uL [facility] Eosinophils/100 WBC (Bld) 3.2 % 0.0 - 6.0 % [facility] Erythrocyte distribution width (RBC) [Ratio] 16.6 % High 11.5 - 14.5 % [facility] Hematocrit (Bld) [Volume fraction] 29.9 % Low 41.0 - 52.0 % [facility] Hemoglobin (Bld) [Mass/Vol] 9 g/dL Low 13.5 - 17.5 g/dL [facility] Immature granulocytes (Bld) [#/Vol] 0.04 10*3/uL [facility] Immature granulocytes/100 WBC (Bld) 0.3 % 0.0 - 0.9 % [facility] Interpretation and review of laboratory results Abnormal [facility] Lymphocytes (Bld) [#/Vol] 1.69 10*3/uL [facility] Lymphocytes/100 WBC (Bld) 13.7 % 13.0 - 44.0 % [facility] MCH (RBC) [Entitic mass] 26.9 pg 26. 0 - 34.0 pg [facility] MCHC (RBC) [Mass/Vol] 30.1 g/dL Low 32.0 - 36.0 g/dL [facility] MCV (RBC) [Entitic vol] 89 fL 80 - 100 fL [facility] Monocytes (Bld) [#/Vol] 0.82 10*3/uL [facility] Monocytes/100 WBC (Bld) 6.7 % 2.0 - 10.0 % [facility] Neutrophils (Bld) [#/Vol] 9.3 10*3/uL High [facility] Neutrophils/100 WBC (Bld) 75.5 % 40.0 - 80.0 % [facility] Nucleated RBC/100 WBC (Bld) [Ratio] 0 % [facility] Platelets (Bld) [#/Vol] 785 10*3/uL High [facility] RBC (Bld) [#/Vol] 3.35 10*6/uL [facility] W[facility] (Bld[facility] [#/Vol] 12.3 10*3/uL High [facility] Magnesiumon 11-18-2024 Magnesium [Mass/Vol] 2.19 mg/dL 1.60 - 2.40 mg/dL [facility] Magnesium [Mass/Vol]on 11-18 Interpretation and review of laboratory results Normal [facility] No Panel Informationon 11-18 [facility] Renal function 2000 panelon 11-18-2024 Albumin BCP dye [Mass/Vol] 3.5 g/dL 3.4 - 5.0 g/dL [facility] Anion gap [Moles/Vol] 15 mmol/L 10 - 2 0 mmol/L [facility] Calcium [Mass/Vol] 9.9 mg/dL 8.6 - 10. 6 mg/dL [facility] Chloride [Moles/Vol] 99 mmol/L 98 - 10 7 mmol/L [facility] CO2 [Moles/Vol] 26 mmol/L 21 - 32 mmol/L [facility] Creatinine [Mass/Vol] 1.22 mg/dL 0.50 - 1.30 mg/dL [facility] GFR/1.73 sq M.predicted among non-blacks MDRD (S/P/Bld) [Vol rate/Area] 72 mL/min/{1.73_m2} - PINF [facility] Glucose [Mass/Vol] 91 mg/dL 74 - 99 mg/dL Uni [facility] Interpretation and review of laboratory results Abnormal [facility] Phosphate [Mass/Vol] 2.7 mg/dL 2.5 - 4 .9 mg/dL [facility] Potassium [Moles/Vol] 4.5 mmol/L 3.5 - 5.3 mmol/L [facility] Sodium [Moles/Vol] 135 mmol/L Low 136 - 145 mmol/L [facility] Urea nitrogen [Mass/Vol] 14 mg/dL 6 - 23 mg/d L [facility] Basic metabolic 2000 panelon 11-17-2024 Anion gap [Moles/Vol] 14 mmol/L 10 - 2 0 mmol/L [facility] Calcium [Mass/Vol] 9.3 mg/dL 8.6 - 10. 6 mg/dL [facility] Chloride [Moles/Vol] 100 mmol/L 98 - 10 7 mmol/L [facility] CO2 [Moles/Vol] 24 mmol/L 21 - 32 mmol/L [facility] Creatinine [Mass/Vol] 1.28 mg/dL 0.50 - 1.30 mg/dL [facility] GFR/1.73 sq M.predicted among non-blacks MDRD (S/P/Bld) [Vol rate/Area] 68 mL/min/{1.73_m2} - [facility] Glucose [Mass/Vol] 95 mg/dL 74 - 99 mg/dL Uni [facility] Potassium [Moles/Vol] 4 mmol/L 3.5 - 5.3 mmol/L [facility] Sodium [Moles/Vol] 134 mmol/L Low 136 - 145 mmol/L [facility] Urea nitrogen [Mass/Vol] 13 mg/dL 6 - 23 mg/d L [facility] CBC W Auto Differential pane l (Bld)on 11-17-2024 Basophils (Bld) [#/Vol] 0.06 10*3/uL [facility] Basophils/100 WBC (Bld) 0.5 % 0.0 - 2.0 % [facility] Eosinophils (Bld) [#/Vol] 0.4 10*3/uL [facility] Eosinophils/100 WBC (Bld) 3.6 % 0.0 - 6.0 % [facility] Erythrocyte distribution width (RBC) [Ratio] 16.8 % High 11.5 - 14.5 % [facility] Hematocrit (Bld) [Volume fraction] 26.6 % Low 41.0 - 52.0 % [facility] Hemoglobin (Bld) [Mass/Vol] 8.3 g/dL Low 13.5 - 17.5 g/dL [facility] Immature granulocytes (Bld) [#/Vol] 0.04 10*3/uL [facility] Immature granulocytes/100 WBC (Bld) 0.4 % 0.0 - 0.9 % [facility] Interpretation and review of laboratory results Abnormal [facility] Lymphocytes (Bld) [#/Vol] 2.08 10*3/uL [facility] Lymphocytes/100 WBC (Bld) 19 % 13.0 - 44.0 % [facility] MCH (RBC) [Entitic mass] 26.8 pg 26. 0 - 34.0 pg [facility] MCHC (RBC) [Mass/Vol] 31.2 g/dL Low 32.0 - 36.0 g/dL [facility] MCV (RBC) [Entitic vol] 86 fL 80 - 100 fL [facility] Monocytes (Bld) [#/Vol] 1.09 10*3/uL High [facility] Monocytes/100 WBC (Bld) 9.9 % 2.0 - 10.0 % [facility] Neutrophils (Bld) [#/Vol] 7.3 10*3/uL [facility] Neutrophils/100 WBC (Bld) 66.6 % 40.0 - 80.0 % [facility] Nucleated RBC/100 WBC (Bld) [Ratio] 0 % [facility] Platelets (Bld) [#/Vol] 639 10*3/uL High [facility] RBC (Bld) [#/Vol] 3.1 10*6/uL Low [facility] WBC (Bld) [#/Vol] 11 10*3/uL [facility] Hepatic function 2000 panelo n 11-17-2024 Albumin BCP dye [Mass/Vol] 3.2 g/dL Low 3.4 - 5.0 g/dL [facility] ALP [Catalytic activity/Vol] 83 U/L 33 - 120 U/L [facility] ALT With P-5'-P [Catalytic activity/Vol] 20 U/L 10 - 52 U/L [facility] AST With P-5'-P [Catalytic activity/Vol] 13 U/L 9 - 39 U/L [facility] Bilirubin [Mass/Vol] 0.3 mg/dL 0.0 - 1 .2 mg/dL [facility] Bilirubin.direct [Mass/Vol] 0 mg/dL 0.0 - 0.3 mg/dL [facility] Protein [Mass/Vol] 7.2 g/dL 6.4 - 8.2 g/dL [facility] Magnesiumon 11-17-2024 Magnesium [Mass/Vol] 2.17 mg/dL 1.60 - 2.40 mg/dL [facility] No Panel Informationon 11-17 Interpretation and review of laboratory results Abnormal [facility] Interpretation and review of laboratory results Normal [facility] Phosphoruson 11-17-2024 Phosphate [Mass/Vol] 3.2 mg/dL 2.5 - 4 .9 mg/dL [facility] Basic metabolic 2000 panelon 11-16-2024 Anion gap [Moles/Vol] 15 mmol/L 10 - 2 0 mmol/L [facility] Calcium [Mass/Vol] 9.2 mg/dL 8.6 - 10. 6 mg/dL [facility] Chloride [Moles/Vol] 103 mmol/L 98 - 10 7 mmol/L [facility] CO2 [Moles/Vol] 22 mmol/L 21 - 32 mmol/L [facility] Creatinine [Mass/Vol] 1.25 mg/dL 0.50 - 1.30 mg/dL [facility] GFR/1.73 sq M.predicted among non-blacks MDRD (S/P/Bld) [Vol rate/Area] 70 mL/min/{1.73_m2} - PINF [facility] Glucose [Mass/Vol] 115 mg/dL High 74 - 99 mg/dL Uni [facility] Interpretation and review of laboratory results Abnormal [facility] Potassium [Moles/Vol] 3.7 mmol/L 3.5 - 5.3 mmol/L [facility] Sodium [Moles/Vol] 136 mmol/L 136 - 145 mmol/L [facility] Urea nitrogen [Mass/Vol] 13 mg/dL 6 - 23 mg/d L [facility] CBC W Auto Differential pane l (Bld)on 11-16-2024 Erythrocyte distribution width (RBC) [Ratio] 16.5 % High 11.5 - 14.5 % [facility] Hematocrit (Bld) [Volume fraction] 26.1 % Low 41.0 - 52.0 % [facility] Hemoglobin (Bld) [Mass/Vol] 8.5 g/dL Low 13.5 - 17.5 g/dL [facility] Immature granulocytes (Bld) [#/Vol] 0.05 10*3/uL [facility] Immature granulocytes/100 WBC (Bld) 0.5 % 0.0 - 0.9 % [facility] MCH (RBC) [Entitic mass] 28.4 pg 26. 0 - 34.0 pg [facility] MCHC (RBC) [Mass/Vol] 32.6 g/dL 32.0 - 36.0 g/dL [facility] MCV (RBC) [Entitic vol] 87 fL 80 - 100 fL [facility] Nucleated RBC/100 WBC (Bld) [Ratio] 0 % [facility] Platelets (Bld) [#/Vol] 619 10*3/uL High [facility] RBC (Bld) [#/Vol] 2.99 10*6/uL Low [facility] WBC (Bld) [#/Vol] 10 10*3/uL [facility] Hepatic function 2000 panelo n 11-16-2024 Albumin BCP dye [Mass/Vol] 3 g/dL Low 3.4 - 5.0 g/dL [facility] ALP [Catalytic activity/Vol] 78 U/L 33 - 120 U/L [facility] ALT With P-5'-P [Catalytic activity/Vol] 17 U/L 10 - 52 U/L [facility] AST With P-5'-P [Catalytic activity/Vol] 11 U/L 9 - 39 U/L [facility] Bilirubin [Mass/Vol] 0.2 mg/dL 0.0 - 1 .2 mg/dL [facility] Bilirubin.direct [Mass/Vol] 0 mg/dL 0.0 - 0.3 mg/dL [facility] Interpretation and review of laboratory results Abnormal [facility] Protein [Mass/Vol] 6.5 g/dL 6.4 - 8.2 g/dL [facility] Magnesiumon 11-16-2024 Magnesium [Mass/Vol] 2.08 mg/dL 1.60 - 2.40 mg/dL [facility] Manual differential performe d Ql (Bld)on 11-16-2024 Basophils (Bld) [#/Vol] 0 10*3/uL U [facility] Basophils/100 WBC (Bld) 0 % 0.0 - 2.0 % [facility] Cells Counted Total (Bld) [#] 113 {cells} [facility] Eosinophils (Bld) [#/Vol] 0.26 10*3/uL [facility] Eosinophils/100 WBC (Bld) 2.6 % 0.0 - 6.0 % [facility] Lymphocytes (Bld) [#/Vol] 1.68 10*3/uL [facility] Lymphocytes/100 WBC (Bld) 16.8 % 13.0 - 44.0 % [facility] Monocytes (Bld) [#/Vol] 0.27 10*3/uL [facility] Monocytes/100 WBC (Bld) 2.7 % 2.0 - 10.0 % [facility] RBC morphology finding Nom (Bld) No significant RBC morphology present [facility] Segmented neutrophils (Bld) [#/Vol] 7.79 10*3/uL High [facility] Segmented neutrophils/100 WBC (Bld) 77.9 % 40.0 - 80.0 % [facility] No Panel Informationon 11-16 Interpretation and review of laboratory results Abnormal [facility] Interpretation and review of laboratory results Normal [facility] Phosphoruson 11-16-2024 Phosphate [Mass/Vol] 2.9 mg/dL 2.5 - 4 .9 mg/dL [facility] Bacteria identified Cx Nom ( Unsp spec)Ordered By: Phil Casas on 11-15-2024 Interpretation and review of laboratory results Abnormal [facility] Microscopic observation Gram stain Nom (Unsp spec) No polymorphonuclear leukocytes seen [facility] Microscopic observation Gram stain Nom (Unsp spec) No organisms seen [facility] Biopsyon 11-15-2024 [facility] Work Phone: [facility] Work Phone: CBC W Auto Differential pane l (Bld)on 11-15-2024 Basophils (Bld) [#/Vol] 0.06 10*3/uL [facility] Basophils/100 WBC (Bld) 0.6 % 0.0 - 2.0 % [facility] Eosinophils (Bld) [#/Vol] 0.28 10*3/uL [facility] Eosinophils/100 WBC (Bld) 2.6 % 0.0 - 6.0 % [facility] Erythrocyte distribution width (RBC) [Ratio] 16.4 % High 11.5 - 14.5 % [facility] Hematocrit (Bld) [Volume fraction] 24.9 % Low 41.0 - 52.0 % [facility] Hemoglobin (Bld) [Mass/Vol] 8.1 g/dL Low 13.5 - 17.5 g/dL [facility] Immature granulocytes (Bld) [#/Vol] 0.04 10*3/uL [facility] Immature granulocytes/100 WBC (Bld) 0.4 % 0.0 - 0.9 % [facility] Interpretation and review of laboratory results Abnormal [facility] Lymphocytes (Bld) [#/Vol] 1.3 10*3/uL [facility] Lymphocytes/100 WBC (Bld) 12.2 % 13.0 - 44.0 % [facility] MCH (RBC) [Entitic mass] 26.6 pg 26. 0 - 34.0 pg [facility] MCHC (RBC) [Mass/Vol] 32.5 g/dL 32.0 - 36.0 g/dL [facility] MCV (RBC) [Entitic vol] 82 fL 80 - 100 fL [facility] Monocytes (Bld) [#/Vol] 1.04 10*3/uL High [facility] Monocytes/100 WBC (Bld) 9.7 % 2.0 - 10.0 % [facility] Neutrophils (Bld) [#/Vol] 7.95 10*3/uL [facility] Neutrophils/100 WBC (Bld) 74.5 % 40.0 - 80.0 % [facility] Nucleated RBC/100 WBC (Bld) [Ratio] 0 % [facility] Platelets (Bld) [#/Vol] 531 10*3/uL High [facility] RBC (Bld) [#/Vol] 3.04 10*6/uL [facility] W[facility] (Bld[facility] [#/Vol] 10.7 10*3/uL Unive [facility] Hepatic function 2000 panelo n 11-15-2024 Albumin BCP dye [Mass/Vol] 3 g/dL Low 3.4 - 5.0 g/dL [facility] ALP [Catalytic activity/Vol] 80 U/L 33 - 120 U/L [facility] ALT With P-5'-P [Catalytic activity/Vol] 21 U/L 10 - 52 U/L [facility] AST With P-5'-P [Catalytic activity/Vol] 18 U/L 9 - 39 U/L [facility] Bilirubin [Mass/Vol] 0.2 mg/dL 0.0 - 1 .2 mg/dL [facility] Bilirubin.direct [Mass/Vol] 0 mg/dL 0.0 - 0.3 mg/dL [facility] Interpretation and review of laboratory results Abnormal [facility] Protein [Mass/Vol] 6.3 g/dL Low 6.4 - 8.2 g/dL [facility] Magnesiumon 11-15-2024 Magnesium [Mass/Vol] 1.93 mg/dL 1.60 - 2.40 mg/dL [facility] Magnesium [Mass/Vol]on 11-15 Interpretation and review of laboratory results Normal [facility] No Panel Informationon 11-15 [facility] Renal function 2000 panelon 11-15-2024 Albumin BCP dye [Mass/Vol] 2.9 g/dL Low 3.4 - 5.0 g/dL [facility] Anion gap [Moles/Vol] 13 mmol/L 10 - 2 0 mmol/L [facility] Calcium [Mass/Vol] 9.4 mg/dL 8.6 - 10. 6 mg/dL [facility] Chloride [Moles/Vol] 105 mmol/L 98 - 10 7 mmol/L [facility] CO2 [Moles/Vol] 24 mmol/L 21 - 32 mmol/L [facility] Creatinine [Mass/Vol] 1.4 mg/dL High 0.50 - 1.30 mg/dL [facility] GFR/1.73 sq M.predicted among non-blacks MDRD (S/P/Bld) [Vol rate/Area] 61 mL/min/{1.73_m2} - PINF [facility] Glucose [Mass/Vol] 116 mg/dL High 74 - 99 mg/dL [facility] Interpretation and review of laboratory results Abnormal [facility] Phosphate [Mass/Vol] 2.5 mg/dL 2.5 - 4 .9 mg/dL [facility] Potassium [Moles/Vol] 3.7 mmol/L 3.5 - 5.3 mmol/L [facility] Sodium [Moles/Vol] 138 mmol/L 136 - 145 mmol/L [facility] Urea nitrogen [Mass/Vol] 10 mg/dL 6 - 23 mg/d L [facility] Tissue/Wound Culture/SmearOr dered By: Phil Casas on 11-15-2024 Bacteria identified Cx Nom (Unsp spec) (1+) Rare Proteus mirabilis Abnormal [facility] Bacteria identified Cx Nom ( Bld)on 11-14-2024 Interpretation and review of laboratory results Normal [facility] Blood Cultureon 11-14-2024 Bacteria identified Cx Nom (Bld) No growth at 4 days - FINAL REPORT [facility] CBC W Auto Differential pane l (Bld)on 11-14-2024 Basophils (Bld) [#/Vol] 0.06 10*3/uL [facility] Basophils/100 WBC (Bld) 0.6 % 0.0 - 2.0 % [facility] Eosinophils (Bld) [#/Vol] 0.4 10*3/uL [facility] Eosinophils/100 WBC (Bld) 4.3 % 0.0 - 6.0 % [facility] Erythrocyte distribution width (RBC) [Ratio] 16.5 % High 11.5 - 14.5 % [facility] Hematocrit (Bld) [Volume fraction] 24.1 % Low 41.0 - 52.0 % [facility] Hemoglobin (Bld) [Mass/Vol] 7.7 g/dL Low 13.5 - 17.5 g/dL [facility] Immature granulocytes (Bld) [#/Vol] 0.05 10*3/uL [facility] Immature granulocytes/100 WBC (Bld) 0.5 % 0.0 - 0.9 % [facility] Interpretation and review of laboratory results Abnormal [facility] Lymphocytes (Bld) [#/Vol] 1.02 10*3/uL Low [facility] Lymphocytes/100 WBC (Bld) 11 % 13.0 - 44.0 % [facility] MCH (RBC) [Entitic mass] 27.6 pg 26. 0 - 34.0 pg [facility] MCHC (RBC) [Mass/Vol] 32 g/dL 32.0 - 36.0 g/dL [facility] MCV (RBC) [Entitic vol] 86 fL 80 - 100 fL [facility] Monocytes (Bld) [#/Vol] 1.05 10*3/uL High [facility] Monocytes/100 WBC (Bld) 11.4 % 2.0 - 10.0 % [facility] Neutrophils (Bld) [#/Vol] 6.67 10*3/uL [facility] Neutrophils/100 WBC (Bld) 72.2 % 40.0 - 80.0 % [facility] Nucleated RBC/100 WBC (Bld) [Ratio] 0 % [facility] Platelets (Bld) [#/Vol] 507 10*3/uL High [facility] RBC (Bld) [#/Vol] 2.79 10*6/uL Low [facility] WBC (Bld) [#/Vol] 9.3 10*3/uL [facility] Calcium (24H U) [Mass/Time]o n 11-14-2024 Calcium, 24 Hour Urine 384 High Un [facility] Collection duration (Unsp spec) 24 hrs [facility] Creatinine (24H U) [Mass/Time] 1.62 [facility] Creatinine (24H U) [Mass/Vol] 52.3 mg/dL 20.0 - 370.0 mg/dL [facility] Interpretation and review of laboratory results Abnormal [facility] Specimen volume (24H U) 3.1 L U [facility] Calcium, 24 Hour Urineon Calcium (24H U) [Mass/Time] 12.4 mg/dL [facility] Cobalamin (Vitamin B12) [Mas s/Vol]on 11-14-2024 Interpretation and review of laboratory results Normal [facility] Comprehensive metabolic 2000 panelon 11-14-2024 Albumin BCP dye [Mass/Vol] 2.7 g/dL Low 3.4 - 5.0 g/dL [facility] ALP [Catalytic activity/Vol] 80 U/L 33 - 120 U/L [facility] ALT With P-5'-P [Catalytic activity/Vol] 17 U/L 10 - 52 U/L [facility] Anion gap [Moles/Vol] 13 mmol/L 10 - 2 0 mmol/L [facility] AST With P-5'-P [Catalytic activity/Vol] 15 U/L 9 - 39 U/L [facility] Bilirubin [Mass/Vol] 0.3 mg/dL 0.0 - 1 .2 mg/dL [facility] Calcium [Mass/Vol] 9.1 mg/dL 8.6 - 10. 6 mg/dL [facility] Chloride [Moles/Vol] 107 mmol/L 98 - 10 7 mmol/L [facility] CO2 [Moles/Vol] 22 mmol/L 21 - 32 mmol/L [facility] Creatinine [Mass/Vol] 1.38 mg/dL High 0.50 - 1.30 mg/dL [facility] GFR/1.73 sq M.predicted among non-blacks MDRD (S/P/Bld) [Vol rate/Area] 62 mL/min/{1.73_m2} - PINF [facility] Glucose [Mass/Vol] 97 mg/dL 74 - 99 mg/dL [facility] Interpretation and review of laboratory results Abnormal [facility] Potassium [Moles/Vol] 3.8 mmol/L 3.5 - 5.3 mmol/L [facility] Protein [Mass/Vol] 5.9 g/dL Low 6.4 - 8.2 g/dL [facility] Sodium [Moles/Vol] 138 mmol/L 136 - 145 mmol/L [facility] Urea nitrogen [Mass/Vol] 8 mg/dL 6 - 23 mg/d L [facility] Folateon 11-14-2024 Folate [Mass/Vol] 4.6 ng/mL Low 5.0 - PINF ng/mL [facility] Folate [Mass/Vol]on 11-14-19 Interpretation and review of laboratory results Abnormal [facility] IgAon 11-14-2024 IgA [Mass/Vol] 503 mg/dL High 70 - 400 mg/dL [facility] Work Phone: IgA [Mass/Vol]on 11-14-2024 Interpretation and review of laboratory results Abnormal [facility] Work Phone: [facility] Work Phone: IgGOrdered By: Ruba guy on 11-14-2024 IgG [Mass/Vol] 1160 mg/dL 700 - 1600 mg/dL [facility] IgG [Mass/Vol]Ordered By: Nik Abel on 11-14-2024 Interpretation and review of laboratory results Normal [facility] IgMon 11-14-2024 IgM [Mass/Vol] 60 mg/dL 40 - 230 mg/dL [facility] Work Phone: IgM [Mass/Vol]on 11-14-2024 Interpretation and review of laboratory results Normal [facility] Work Phone: [facility] Work Phone: M. tuberculosis stim IFN-g a nd spot count panel (Bld)on 11-14-2024 Gamma interferon negative control spot count (Bld) [#] Passed [facility] M. tuberculosis stim IFN-g CFP10 Ag spot count (Bld) [#] 4 [facility] M. tuberculosis stim IFN-g ESAT-6 Ag spot count (Bld) [#] 0 [facility] M. tuberculosis stim IFN-g Ql (Bld) [Interp] Negative Negative [facility] Mitogen stimulated gamma interferon positive control spot count (Bld) [#] Passed [facility] Magnesiumon 11-14-2024 Magnesium [Mass/Vol] 1.78 mg/dL 1.60 - 2.40 mg/dL [facility] Magnesium [Mass/Vol]on 11-14 Interpretation and review of laboratory results Normal [facility] No Panel Informationon 11-14 [facility] PTH-Related Peptideon 2024 Parathyrin related protein [Moles/Vol] 12 pmol/L High < or = 4.2 [facility] Parathyrin related protein [ Moles/Vol]on 11-14-2024 Interpretation and review of laboratory results Abnormal [facility] Pathologist review Pathologi st comment (Bld) [Interp]Ordered By: Jose C Hensley on 11-14-2024 Pathologist Review-CBC Differential Thrombocytosis favor reactive. Anemia with no specific morphologic findings. [facility] Work Phone: [facility] Work Phone: Vitamin B12on 11-14-2024 Cobalamin (Vitamin B12) [Mass/Vol] 328 pg/mL 211 - 911 pg/mL [facility] 1,25-dihydroxyvitamin D3 [Ma ss/Vol]on 11-13-2024 1,25-dihydroxyvitamin D [Mass/Vol] 35.9 pg/mL 19.9 - 79.3 pg/mL [facility] Blood type and Indirect anti body screen panel (Bld)on 11-13-2024 ABO group Nom (Bld) [facility] Blood group antibody screen Ql Negative [facility] D Ag Ql (Bld) Positive [facility] CBC W Auto Differential pane l (Bld)Ordered By: Seble Tate on 11-13-2024 Basophils (Bld) [#/Vol] 0.02 10*3/uL [facility] Basophils/100 WBC (Bld) 0.4 % 0.0 - 2.0 % [facility] Eosinophils (Bld) [#/Vol] 0.2 10*3/uL [facility] Eosinophils/100 WBC (Bld) 3.6 % 0.0 - 6.0 % [facility] Erythrocyte distribution width (RBC) [Ratio] 16.7 % High 11.5 - 14.5 % [facility] Hematocrit (Bld) [Volume fraction] 16 % Low 41.0 - 52.0 % [facility] Hemoglobin (Bld) [Mass/Vol] 4.9 g/dL Critically low 13.5 - 17.5 g/dL [facility] Immature granulocytes (Bld) [#/Vol] 0.01 10*3/uL [facility] Immature granulocytes/100 WBC (Bld) 0.2 % 0.0 - 0.9 % [facility] Interpretation and review of laboratory results Abnormal [facility] Lymphocytes (Bld) [#/Vol] 0.4 10*3/uL Low [facility] Lymphocytes/100 WBC (Bld) 7.1 % 13.0 - 44.0 % [facility] MCH (RBC) [Entitic mass] 28.3 pg 26. 0 - 34.0 pg [facility] MCHC (RBC) [Mass/Vol] 30.6 g/dL Low 32.0 - 36.0 g/dL [facility] MCV (RBC) [Entitic vol] 93 fL 80 - 100 fL [facility] Monocytes (Bld) [#/Vol] 0.55 10*3/uL [facility] Monocytes/100 WBC (Bld) 9.8 % 2.0 - 10.0 % [facility] Neutrophils (Bld) [#/Vol] 4.44 10*3/uL [facility] Neutrophils/100 WBC (Bld) 78.9 % 40.0 - 80.0 % [facility] Nucleated RBC/100 WBC (Bld) [Ratio] 0 % [facility] Platelets (Bld) [#/Vol] 306 10*3/uL [facility] RBC (Bld) [#/Vol] 1.73 10*6/uL Low [facility] WBC (Bld) [#/Vol] 5.6 10*3/uL [facility] [place] CBC W Auto Differential pane l (Bld)on 11-13-2024 Basophils (Bld) [#/Vol] 0.07 10*3/uL [facility] Basophils/100 WBC (Bld) 0.6 % 0.0 - 2.0 % [facility] Eosinophils (Bld) [#/Vol] 0.44 10*3/uL [facility] Eosinophils/100 WBC (Bld) 3.9 % 0.0 - 6.0 % [facility] Erythrocyte distribution width (RBC) [Ratio] 16.6 % High 11.5 - 14.5 % [facility] Hematocrit (Bld) [Volume fraction] 26.2 % Low 41.0 - 52.0 % [facility] Hemoglobin (Bld) [Mass/Vol] 8.3 g/dL Low 13.5 - 17.5 g/dL [facility] Immature granulocytes (Bld) [#/Vol] 0.11 10*3/uL [facility] Immature granulocytes/100 WBC (Bld) 1 % High 0.0 - 0.9 % [facility] Interpretation and review of laboratory results Abnormal [facility] Lymphocytes (Bld) [#/Vol] 1.43 10*3/uL [facility] Lymphocytes/100 WBC (Bld) 12.8 % 13.0 - 44.0 % [facility] MCH (RBC) [Entitic mass] 27.9 pg 26. 0 - 34.0 pg [facility] MCHC (RBC) [Mass/Vol] 31.7 g/dL Low 32.0 - 36.0 g/dL [facility] MCV (RBC) [Entitic vol] 88 fL 80 - 100 fL [facility] Monocytes (Bld) [#/Vol] 1.07 10*3/uL High [facility] Monocytes/100 WBC (Bld) 9.6 % 2.0 - 10.0 % [facility] Neutrophils (Bld) [#/Vol] 8.02 10*3/uL High [facility] Neutrophils/100 WBC (Bld) 72.1 % 40.0 - 80.0 % [facility] Nucleated RBC/100 WBC (Bld) [Ratio] 0 % [facility] Platelets (Bld) [#/Vol] 576 10*3/uL High [facility] RBC (Bld) [#/Vol] 2.97 10*6/uL Low [facility] WBC (Bld) [#/Vol] 11.1 10*3/uL [facility] CBC panel Auto (Bld)on 11-13 Erythrocyte distribution width (RBC) [Ratio] 16.4 % High 11.5 - 14.5 % [facility] Hematocrit (Bld) [Volume fraction] 25.5 % Low 41.0 - 52.0 % [facility] Hemoglobin (Bld) [Mass/Vol] 8.2 g/dL Low 13.5 - 17.5 g/dL [facility] Interpretation and review of laboratory results Abnormal [facility] MCH (RBC) [Entitic mass] 27.8 pg 26. 0 - 34.0 pg [facility] MCHC (RBC) [Mass/Vol] 32.2 g/dL 32.0 - 36.0 g/dL [facility] MCV (RBC) [Entitic vol] 86 fL 80 - 100 fL [facility] Nucleated RBC/100 WBC (Bld) [Ratio] 0 % [facility] Platelets (Bld) [#/Vol] 570 10*3/uL High [facility] RBC (Bld) [#/Vol] 2.95 10*6/uL Low [facility] WBC (Bld) [#/Vol] 9.4 10*3/uL [facility] [place] Calcium, ionizedon Calcium.ionized (Bld) [Moles/Vol] 1.06 mmol/L Low 1.1 - 1.33 mmol/L [facility] Calcium.ionized (Bld) [Moles /Vol]on 11-13-2024 Interpretation and review of laboratory results Abnormal [facility] Comprehensive metabolic 2000 panelon 11-13-2024 Albumin BCP dye [Mass/Vol] 2.8 g/dL Low 3.4 - 5.0 g/dL [facility] ALP [Catalytic activity/Vol] 89 U/L 33 - 120 U/L [facility] ALT With P-5'-P [Catalytic activity/Vol] 17 U/L 10 - 52 U/L [facility] Anion gap [Moles/Vol] 11 mmol/L 10 - 2 0 mmol/L [facility] AST With P-5'-P [Catalytic activity/Vol] 15 U/L 9 - 39 U/L [facility] Bilirubin [Mass/Vol] 0.3 mg/dL 0.0 - 1 .2 mg/dL [facility] Calcium [Mass/Vol] 9.8 mg/dL 8.6 - 10. 6 mg/dL [facility] Chloride [Moles/Vol] 108 mmol/L High 98 - 10 7 mmol/L [facility] CO2 [Moles/Vol] 23 mmol/L 21 - 32 mmol/L [facility] Creatinine [Mass/Vol] 1.4 mg/dL High 0.50 - 1.30 mg/dL [facility] GFR/1.73 sq M.predicted among non-blacks MDRD (S/P/Bld) [Vol rate/Area] 61 mL/min/{1.73_m2} - PINF [facility] Glucose [Mass/Vol] 117 mg/dL High 74 - 99 mg/dL [facility] Interpretation and review of laboratory results Abnormal [facility] Potassium [Moles/Vol] 3.6 mmol/L 3.5 - 5.3 mmol/L [facility] Protein [Mass/Vol] 5.9 g/dL Low 6.4 - 8.2 g/dL [facility] Sodium [Moles/Vol] 138 mmol/L 136 - 145 mmol/L [facility] Urea nitrogen [Mass/Vol] 9 mg/dL 6 - 23 mg/d L [facility] Albumin BCP dye [Mass/Vol] 2.8 g/dL Low 3.4 - 5.0 g/dL [facility] ALP [Catalytic activity/Vol] 79 U/L 33 - 120 U/L [facility] ALT With P-5'-P [Catalytic activity/Vol] 16 U/L 10 - 52 U/L [facility] Anion gap [Moles/Vol] 12 mmol/L 10 - 2 0 mmol/L [facility] AST With P-5'-P [Catalytic activity/Vol] 13 U/L 9 - 39 U/L [facility] Bilirubin [Mass/Vol] 0.4 mg/dL 0.0 - 1 .2 mg/dL [facility] Calcium [Mass/Vol] 11.1 mg/dL High 8.6 - 10. 6 mg/dL [facility] Chloride [Moles/Vol] 106 mmol/L 98 - 10 7 mmol/L [facility] CO2 [Moles/Vol] 25 mmol/L 21 - 32 mmol/L [facility] Creatinine [Mass/Vol] 1.41 mg/dL High 0.50 - 1.30 mg/dL [facility] GFR/1.73 sq M.predicted among non-blacks MDRD (S/P/Bld) [Vol rate/Area] 60 mL/min/{1.73_m2} Low - PINF [facility] Glucose [Mass/Vol] 106 mg/dL High 74 - 99 mg/dL [facility] Potassium [Moles/Vol] 3.7 mmol/L 3.5 - 5.3 mmol/L [facility] Protein [Mass/Vol] 6.2 g/dL Low 6.4 - 8.2 g/dL [facility] Sodium [Moles/Vol] 139 mmol/L 136 - 145 mmol/L [facility] Urea nitrogen [Mass/Vol] 9 mg/dL 6 - 23 mg/d L [facility] Gas panel (BldV)on 5 Anion gap 4 (BldV) [Moles/Vol] 9 mmol/L Low 10.0 - 25.0 mmol/L [facility] Base excess Calc (BldV) [Moles/Vol] -1.8000 mmol/L -2.0 - 3.0 mmol/L [facility] Calcium.ionized (BldV) [Moles/Vol] 1.43 mmol/L High 1.10 - 1.33 mmol/L [facility] Chloride (BldV) [Moles/Vol] 110 mmol/L High 98 - 107 mmol/L [facility] CO2 (BldV) [Partial pressure] 29 mm[Hg] Low [facility] Glucose [Mass/Vol] 130 mg/dL High 74 - 99 mg/dL [facility] (Bld) [Moles/Vol] 21.6 mmol/L Low 22.0 - 26.0 mmol/L [facility] Hematocrit Est (Bld) [Volume fraction] 16 % Low 41.0 - 52.0 % [facility] Hemoglobin (Bld) [Mass/Vol] 5.3 g/dL Critically low 13.5 - 17.5 g/dL [facility] Inhaled oxygen concentration 21 % [facility] Interpretation and review of laboratory results Abnormal [facility] Lactate (BldV) [Moles/Vol] 1.5 mmol/L 0.4 - 2.0 mmol/L [facility] Oxygen (BldV) [Partial pressure] 75 mm[Hg] High [facility] Oxygen saturation in Venous blood 99 % High 45 - 75 % [facility] Oxyhemoglobin (BldV) [Mass fraction] 96 % High 45.0 - 75.0 % [facility] pH (BldV) 7.48 [pH] High 7.33 - 7.43 pH [facility] Potassium (BldV) [Moles/Vol] 3.8 mmol/L 3.5 - 5.3 mmol/L [facility] Sodium (BldV) [Moles/Vol] 137 mmol/L 136 - 145 mmol/L [facility] Glucose Test strip manual (B ld) [Mass/Vol]on 11-13-2024 Glucose [Mass/Vol] 96 mg/dL 74 - 99 mg/dL [facility] Interpretation and review of laboratory results Normal [facility] Haptoglobinon 11-13-2024 Haptoglobin Nephelometry [Mass/Vol] 319 mg/dL High 30 - 200 mg/dL [facility] Haptoglobin Nephelometry [Ma ss/Vol]on 11-13-2024 Interpretation and review of laboratory results Abnormal [facility] Hepatic function 2000 panelo n 11-13-2024 Albumin BCP dye [Mass/Vol] 2.8 g/dL Low 3.4 - 5.0 g/dL [facility] ALP [Catalytic activity/Vol] 89 U/L 33 - 120 U/L [facility] ALT With P-5'-P [Catalytic activity/Vol] 17 U/L 10 - 52 U/L [facility] AST With P-5'-P [Catalytic activity/Vol] 15 U/L 9 - 39 U/L [facility] Bilirubin [Mass/Vol] 0.3 mg/dL 0.0 - 1 .2 mg/dL [facility] Bilirubin.direct [Mass/Vol] 0.1 mg/dL 0.0 - 0.3 mg/dL [facility] Interpretation and review of laboratory results Abnormal [facility] Protein [Mass/Vol] 5.9 g/dL Low 6.4 - 8.2 g/dL [facility] Lactateon 11-13-2024 Lactate [Moles/Vol] 1.5 mmol/L 0.4 - 2. 0 mmol/L [facility] Lactate Dehydrogenaseon 10-20 LDH Lactate to pyruvate reaction [Catalytic activity/Vol] 62 U/L Low 84 - 246 U/L [facility] Lactate [Moles/Vol]on 2024 Interpretation and review of laboratory results Normal [facility] Magnesiumon 11-13-2024 Magnesium [Mass/Vol] 1.23 mg/dL Low 1.60 - 2.40 mg/dL [facility] Magnesium [Mass/Vol] 1.86 mg/dL 1.60 - 2.40 mg/dL [facility] Magnesium [Mass/Vol]on 11-13 Interpretation and review of laboratory results Abnormal [facility] Interpretation and review of laboratory results Normal [facility] No Panel Informationon 11-13 Interpretation and review of laboratory results Abnormal [facility] Interpretation and review of laboratory results Abnormal [facility] Phosphate [Mass/Vol]on 11-13 Interpretation and review of laboratory results Normal [facility] Phosphoruson 11-13-2024 Phosphate [Mass/Vol] 3 mg/dL 2.5 - 4 .9 mg/dL [facility] Renal function 2000 panelon 11-13-2024 Albumin BCP dye [Mass/Vol] 2.1 g/dL Low 3.4 - 5.0 g/dL [facility] Anion gap [Moles/Vol] 9 mmol/L [facility] Calcium [Mass/Vol] 7.4 mg/dL Low 8.6 - 10. 6 mg/dL [facility] Chloride [Moles/Vol] 120 mmol/L High 98 - 10 7 mmol/L [facility] CO2 [Moles/Vol] 17 mmol/L Low 21 - 32 mmol/L [facility] Creatinine [Mass/Vol] 0.93 mg/dL 0.50 - 1.30 mg/dL [facility] eGFR - PINF [facility] Glucose [Mass/Vol] 83 mg/dL 74 - 99 mg/dL [facility] Phosphate [Mass/Vol] 1.6 mg/dL Low 2.5 - 4 .9 mg/dL [facility] Potassium [Moles/Vol] 2.7 mmol/L Critically low 3.5 - 5.3 mmol/L [facility] Sodium [Moles/Vol] 143 mmol/L 136 - 145 mmol/L [facility] Urea nitrogen [Mass/Vol] 6 mg/dL 6 - 23 mg/d L [facility] Reticulocytes panel (Bld)on 11-13-2024 Hemoglobin (Reticulocytes) [Entitic mass] 24 pg Low 28 - 38 pg [facility] Immature Retic fraction 15.5 % NINF - 16.0 % [facility] Interpretation and review of laboratory results Abnormal [facility] Reticulocytes (Bld) [#/Vol] 0.023 10*3/uL [facility] Reticulocytes/100 RBC (Bld) 1.3 % 0.5 - 2.0 % [facility] Serum Protein Electrophoresi s + ImmunofixationOrdered By: [place] on 11-13-2024 Albumin [Mass/Vol] 2.9 g/dL Low 3.4 - 5.0 g/dL [facility] Work Phone: 36 Alpha 1 Globulin 0.5 g/dL 0.2 - 0.6 g/dL [facility] Work Phone: 36 Alpha 2 Globulin 0.9 g/dL 0.4 - 1.1 g/dL [facility] Work Phone: 36 Beta Globulin 1 g/dL 0.5 - 1.2 g/dL [facility] Work Phone: 36 Gamma 1.1 g/dL 0.5 - 1.4 g/dL [facility] Work Phone: 36 Immunofixation [facility] Work Phone: Interpretation and review of laboratory results Abnormal [facility] Work Phone: 36 Path Review - Serum Immunofixation [facility] Work Phone: Path Review - Serum Protein Electrophoresis [facility] Work Phone: 36 Protein [Mass/Vol] 0.2 g/dL High [facility] Work Phone: Protein Electrophoresis Comment [facility] Work Phone: [facility] Work Phone: Slide Requeston 11-13-2024 [facility] Work Phone: TSH with reflex to Free T4 i f abnormalon 11-13-2024 Interpretation and review of laboratory results Normal [facility] TSH Qn 1.25 m[IU]/L [facility] Vancomycinon 11-13-2024 Vancomycin [Mass/Vol] 26.4 ug/mL High 5.0 - 20.0 ug/mL [facility] Vancomycin [Mass/Vol]on 10-20 [facility] Biopsyon 11-12-2024 [facility] Work Phone: [facility] Work Phone: CBC W Auto Differential pane l (Bld)on 11-12-2024 Basophils (Bld) [#/Vol] 0.07 10*3/uL [facility] Basophils/100 WBC (Bld) 0.6 % 0.0 - 2.0 % [facility] Eosinophils (Bld) [#/Vol] 0.55 10*3/uL [facility] Eosinophils/100 WBC (Bld) 4.8 % 0.0 - 6.0 % [facility] Erythrocyte distribution width (RBC) [Ratio] 16.7 % High 11.5 - 14.5 % [facility] Hematocrit (Bld) [Volume fraction] 27.2 % Low 41.0 - 52.0 % [facility] Hemoglobin (Bld) [Mass/Vol] 8.2 g/dL Low 13.5 - 17.5 g/dL [facility] Immature granulocytes (Bld) [#/Vol] 0.04 10*3/uL [facility] Immature granulocytes/100 WBC (Bld) 0.3 % 0.0 - 0.9 % [facility] Interpretation and review of laboratory results Abnormal [facility] Lymphocytes (Bld) [#/Vol] 1.73 10*3/uL [facility] Lymphocytes/100 WBC (Bld) 15.1 % 13.0 - 44.0 % [facility] MCH (RBC) [Entitic mass] 27 pg 26. 0 - 34.0 pg [facility] MCHC (RBC) [Mass/Vol] 30.1 g/dL Low 32.0 - 36.0 g/dL [facility] MCV (RBC) [Entitic vol] 90 fL 80 - 100 fL [facility] Monocytes (Bld) [#/Vol] 1.26 10*3/uL High [facility] Monocytes/100 WBC (Bld) 11 % 2.0 - 10.0 % [facility] Neutrophils (Bld) [#/Vol] 7.8 10*3/uL High [facility] Neutrophils/100 WBC (Bld) 68.2 % 40.0 - 80.0 % [facility] Nucleated RBC/100 WBC (Bld) [Ratio] 0 % [facility] Platelets (Bld) [#/Vol] 576 10*3/uL High [facility] RBC (Bld) [#/Vol] 3.04 10*6/uL Low [facility] WBC (Bld) [#/Vol] 11.5 10*3/uL High [facility] Comprehensive metabolic 2000 panelon 11-12-2024 Albumin BCP dye [Mass/Vol] 2.9 g/dL Low 3.4 - 5.0 g/dL [facility] ALP [Catalytic activity/Vol] 73 U/L 33 - 120 U/L [facility] ALT With P-5'-P [Catalytic activity/Vol] 12 U/L 10 - 52 U/L [facility] Anion gap [Moles/Vol] 13 mmol/L 10 - 2 0 mmol/L [facility] AST With P-5'-P [Catalytic activity/Vol] 7 U/L Low 9 - 39 U/L [facility] Bilirubin [Mass/Vol] 0.3 mg/dL 0.0 - 1 .2 mg/dL [facility] Calcium [Mass/Vol] 11.4 mg/dL High 8.6 - 10. 6 mg/dL [facility] Chloride [Moles/Vol] 107 mmol/L 98 - 10 7 mmol/L [facility] CO2 [Moles/Vol] 23 mmol/L 21 - 32 mmol/L [facility] Creatinine [Mass/Vol] 1.49 mg/dL High 0.50 - 1.30 mg/dL [facility] GFR/1.73 sq M.predicted among non-blacks MDRD (S/P/Bld) [Vol rate/Area] 56 mL/min/{1.73_m2} Low - PINF [facility] Glucose [Mass/Vol] 93 mg/dL 74 - 99 mg/dL [facility] Interpretation and review of laboratory results Abnormal [facility] Potassium [Moles/Vol] 3.6 mmol/L 3.5 - 5.3 mmol/L [facility] Protein [Mass/Vol] 6.1 g/dL Low 6.4 - 8.2 g/dL [facility] Sodium [Moles/Vol] 139 mmol/L 136 - 145 mmol/L [facility] Urea nitrogen [Mass/Vol] 11 mg/dL 6 - 23 mg/d L [facility] HCV RNA panel MERON+probeOrder ed By: Cassandra Guzmán on 11-12-2024 HCV RNA MERON+probe [Log units/Vol] [facility] HCV RNA MERON+probe Qn Not detected Not detected [facility] Magnesiumon 11-12-2024 Magnesium [Mass/Vol] 1.91 mg/dL 1.60 - 2.40 mg/dL [facility] Magnesium [Mass/Vol]on 11-12 Interpretation and review of laboratory results Normal [facility] No Panel Informationon 11-12 [facility] Comprehensive metabolic 2000 panelon 11-11-2024 Albumin BCP dye [Mass/Vol] 2.8 g/dL Low 3.4 - 5.0 g/dL [facility] ALP [Catalytic activity/Vol] 71 U/L 33 - 120 U/L [facility] ALT With P-5'-P [Catalytic activity/Vol] 9 U/L Low 10 - 52 U/L [facility] Anion gap [Moles/Vol] 9 mmol/L Low 10 - 2 0 mmol/L [facility] AST With P-5'-P [Catalytic activity/Vol] 6 U/L Low 9 - 39 U/L [facility] Bilirubin [Mass/Vol] 0.3 mg/dL 0.0 - 1 .2 mg/dL [facility] Calcium [Mass/Vol] 11.2 mg/dL High 8.6 - 10. 6 mg/dL [facility] Chloride [Moles/Vol] 108 mmol/L High 98 - 10 7 mmol/L [facility] CO2 [Moles/Vol] 26 mmol/L 21 - 32 mmol/L [facility] Creatinine [Mass/Vol] 1.4 mg/dL High 0.50 - 1.30 mg/dL [facility] GFR/1.73 sq M.predicted among non-blacks MDRD (S/P/Bld) [Vol rate/Area] 61 mL/min/{1.73_m2} - PINF [facility] Glucose [Mass/Vol] 101 mg/dL High 74 - 99 mg/dL Uni [facility] Potassium [Moles/Vol] 3.8 mmol/L 3.5 - 5.3 mmol/L [facility] Protein [Mass/Vol] 5.6 g/dL Low 6.4 - 8.2 g/dL [facility] Sodium [Moles/Vol] 139 mmol/L 136 - 145 mmol/L [facility] Urea nitrogen [Mass/Vol] 11 mg/dL 6 - 23 mg/d L [facility] HBV core Ab Ql (S)on 025 Interpretation and review of laboratory results Normal [facility] HBV surface Ab Qn (S)on 10-20 Interpretation and review of laboratory results Normal [facility] HBV surface Ag IA Qlon 11-11 Interpretation and review of laboratory results Normal [facility] HIV 1+2 Ab+HIV1 p24 Ag IA Ql on 11-11-2024 Interpretation and review of laboratory results Normal [facility] HIV 1/2 Antigen/Antibody Scr een with Reflex to Confirmationon 11-11-2024 HIV 1+2 Ab+HIV1 p24 Ag IA Ql Non-Reactive Nonreactive [facility] Hepatitis B Core Antibody, T otalon 11-11-2024 HBV core Ab Ql (S) Non-Reactive Nonreactive [facility] Hepatitis B surface antibody on 11-11-2024 HBV surface Ab Qn (S) NINF [facility] Hepatitis B surface antigeno n 11-11-2024 HBV surface Ag IA Ql Non-Reactive [facility] Magnesiumon 11-11-2024 Magnesium [Mass/Vol] 1.98 mg/dL 1.60 - 2.40 mg/dL [facility] Magnesium [Mass/Vol]on 11-11 Interpretation and review of laboratory results Normal [facility] No Panel Informationon 11-11 Interpretation and review of laboratory results Abnormal [facility] Phosphoruson 11-11-2024 Phosphate [Mass/Vol] 2.7 mg/dL 2.5 - 4 .9 mg/dL [facility] Urine Protein Electrophoresi son 11-11-2024 Albumin Elph (U) [Mass fraction] 16.4 % [facility] Work Phone: [phone] Alpha 1 globulin Elph (U) [Mass fraction] 29.9 % [facility] Work Phone: [phone] Alpha 2 globulin Elph (U) [Mass fraction] 9.4 % [facility] Work Phone: [phone] Beta globulin Elph (U) [Mass fraction] 21.8 % [facility] Work Phone: [phone] Gamma globulin Elph (U) [Mass fraction] 22.5 % [facility] Work Phone: [phone] Path Review-Urine Protein Electrophoresis [facility] Work Phone: [phone] Urine Electrophoresis Comment Normal. [facility] Work Phone: [phone] [facility] Work Phone: [phone] Vancomycinon 11-11-2024 Vancomycin [Mass/Vol] 27 ug/mL High 5.0 - 20.0 ug/mL [facility] Vancomycin [Mass/Vol]on 10-20 [facility] ECG 12-LEADon 11-10-2024 ECG 12-LEAD Ventricular Rate 77 Atrial Rate 77 P-R Interval 146 QRS Duration 108 Q-T Interval 368 QTC Calculation(Bazett) 416 P [place] 55 R [place] 72 T [place] 66 QRS Count 13 Q Onset 211 [...] Villa ([id number]) on 11/28/2024 9:05:21 AM Normal [facility] 30on 11-09-2024 30 Problem: Knowledge [...] discharge needs are met Outcome: Progressing Normal [facility] CBC W Auto Differential pane l (Bld)Ordered By: Marysol El on 11-09-2024 Erythrocyte distribution width (RBC) [Ratio] 16.4 % High 11.5 - 15.0 % [facility] Hematocrit (Bld) [Volume fraction] 27.7 % Low 40.0 - 52.0 % [facility] Hemoglobin (Bld) [Mass/Vol] 8.8 g/dL Low 13.0 - 18.0 g/dL [facility] Interpretation and review of laboratory results Abnormal [facility] MCH (RBC) [Entitic mass] 27.7 pg 26. 0 - 34.0 pg [facility] MCHC (RBC) [Mass/Vol] 31.8 % 30.5 - 36.0 % [facility] MCV (RBC) [Entitic vol] 87.1 fL 77.0 - 99.0 fL [facility] Platelet mean volume (Bld) [Entitic vol] 8.8 fL Low 9.0 - 12.7 fL [facility] Platelets (Bld) [#/Vol] 524 10*3/uL High 140 - 440 10*3/uL [facility] RBC (Bld) [#/Vol] 3.18 10*6/uL Low 4.40 - 5.9 0 10*6/uL [facility] WBC (Bld) [#/Vol] 13 10*3/uL High 3.6 - 10.7 10*3/uL [facility] CBC WITH AUTO DIFFERENTIALon 11-09-2024 Erythrocyte distribution width (RBC) [Ratio] 16.4 % High 11.5-15.0 [facility] Comment on above: Performed By: #### L [id number], [id number] ####Information Lead: JAZLYN JIMENEZ ([id number])[facility])[address] [place] [address] Hematocrit (Bld) [Volume fraction] 27.7 % Low 40.0-52.0 [facility] Comment on above: Performed By: #### Kamila [id number], [id number] ####Information Lead: JAZLYN JIMENEZ ([id number])[facility])[address] [place] [address] Hemoglobin (Bld) [Mass/Vol] 8.8 g/dL Low 13.0-18.0 [facility] Comment on above: Performed By: #### L [id number], [id number] ####Information Lead: JAZLYN JIMENEZ ([id number])[facility])[address] [place] [address] MCH (RBC) [Entitic mass] 27.7 pg Normal 26.0-34.0 [facility] Comment on above: Performed By: #### L [id number], [id number] ####Information Lead: JAZLYN JIMENEZ ([id number])[facility])[address] [place] [address] MCHC 31.8 % Normal 30.5-36.0 [facility] Comment on above: Performed By: #### L [id number], [id number] ####Information Lead: JAZLYN JIMENEZ ([id number])[facility])[address] [place] [address] MCV (RBC) [Entitic vol] 87.1 fL Normal 77.0-99.0 [facility] Comment on above: Performed By: #### L [id number], [id number] ####Information Lead: JAZLYN JIMENEZ ([id number])[facility])[address] [place] [address] Platelet mean volume (Bld) [Entitic vol] 8.8 fL Low 9.0-12.7 [facility] Comment on above: Performed By: #### L [id number], [id number] ####Information Lead: JAZLYN JIMENEZ ([id number])[facility])[address] [place] [address] Platelets (Bld) [#/Vol] 524 10*3/uL High 140-440 [facility] Comment on above: Performed By: #### Kamila [id number], [id number] ####Information Lead: JAZLYN JIMENEZ ([id number])[facility])[address] [place] [address] RBC (Bld) [#/Vol] 3.18 10*6/uL Low 4.40-5.90 [facility] Comment on above: Performed By: #### Kamila [id number], [id number] ####Information Lead: JAZLYN JIMENEZ ([id number])[facility])[address] [place] [address] WBC (Bld) [#/Vol] 13.0 10*3/uL High 3.6-10.7 [facility] Comment on above: Performed By: #### L [id number], [id number] ####Information Lead: JAZLYN JIMENEZ ([id number])[facility])[address] [place] [address] COMPREHENSIVE METABOLIC PANE Yuriy 11-09-2024 Albumin [Mass/Vol] 2.5 g/dL Low 3.5-5.0 [facility] Comment on above: Performed By: #### L [id number] ####Information Lead: JAZLYN JIMENEZ ([id number])[facility] ([facility])[address] [place] [address] ALP [Catalytic activity/Vol] 70 U/L Normal 40-150 [facility] Comment on above: Performed By: #### L [id number] ####Information Lead: JAZLYN JIMENEZ ([id number])[facility] ([facility])[address] [place] [address] ALT [Catalytic activity/Vol] U/L Normal <40 [facility] Comment on above: Performed By: #### L [id number] ####Information Lead: JAZLYN JIMENEZ ([id number])[facility] ([facility])[address] [place] [address] Anion gap [Moles/Vol] 6 mmol/L Normal 3-13 [facility] Comment on above: Performed By: #### L [id number] ####Information Lead: JAZLYN JIMENEZ ([id number])[facility] ([facility])[address] [place] [address] AST [Catalytic activity/Vol] 11 U/L Normal <34 [facility] Comment on above: Performed By: #### L [id number] ####Information Lead: JAZLYN JIMENEZ ([id number])[facility] ([facility])[address] [place] [address] [place] Bilirubin [Mass/Vol] 0.4 mg/dL Normal <1.2 [facility] Comment on above: Performed By: #### L [id number] ####Information Lead: JAZLYN JIMENEZ ([id number])[facility] ([facility])[address] [place] [address] Calcium [Mass/Vol] 12.1 mg/dL High 8.4-10.2 [facility] Comment on above: Performed By: #### L [id number] ####Information Lead: J[facility]LYN [facility]ENE[facility] ([id number])[facility] [place] [address] Chloride [Moles/Vol] 107 mmol/L Normal 98-107 [facility] Comment on above: Performed By: #### L [id number] ####Information Lead: JAZLYN JIMENEZ ([id number])[facility])[address] [place] [address] CO2 [Moles/Vol] 24 mmol/L Normal 22-29 [facility] Comment on above: Performed By: #### L [id number] ####Information Lead: JAZLYN JIMENEZ ([id number])[facility])[address] [place] [address] Creatinine [Mass/Vol] 1.42 mg/dL High 0.72-1.25 [facility] Comment on above: Performed By: #### L [id number] ####Information Lead: JAZLYN JIMENEZ ([id number])[facility] ([facility])[address] [place] [address] GLOMERULAR FILTRATION RATE ML/MIN/1.73 SQ M.PREDICTED 59.8 mL/min/1.73m*2 Low >60.0 [facility] Comment on above: Result Comment: Calc ulation based on the Chronic Kidney Disease Epidemiology Collaboration (CKD-EPI) equation refit without adjustment for race Performed By: #### L [id number] ####Information Lead: JAZLYN JIMENEZ ([id number])[facility])[address] [place] [address] Glucose [Mass/Vol] 101 mg/dL High 74-100 [facility] Comment on above: Performed By: #### L [id number] ####Information Lead: JAZLYN JIMENEZ ([id number])[facility])[address] [place] [address] Potassium [Moles/Vol] 3.7 mmol/L Normal 3.5-5.1 [facility] Comment on above: Result Comment: [facility] potassium values may be up to 0.5 mmol/L lower than serum values. Performed By: #### L [id number] ####Information Lead: JAZLYN JIMENEZ ([id number])[facility] ([facility])[address] [place] [address] Protein [Mass/Vol] 6.3 g/dL Low 6.4-8.3 [facility] Comment on above: Performed By: #### L [id number] ####Information Lead: JAZLYN JIMENEZ ([id number])[facility])[address] [place] [address] Sodium [Moles/Vol] 137 mmol/L Normal 136-145 [facility] Comment on above: Performed By: #### L [id number] ####Information Lead: JAZLYN JIMENEZ ([id number])[facility])[address] [place] [address] Urea nitrogen [Mass/Vol] 19 mg/dL Normal 9-23 [facility] Comment on above: Performed By: #### L [id number] ####Information Lead: JAZLYN JIMENEZ ([id number])[facility] ([facility])[address] [place] [address] Comprehensive metabolic 1998 panelon 11-09-2024 Albumin [Mass/Vol] 2.5 g/dL Low 3.5 - 5.0 g/dL [facility] ALP [Catalytic activity/Vol] 70 U/L 40 - 150 U/L [facility] ALT [Catalytic activity/Vol] U/L NINF - 40 U/L [facility] Anion gap [Moles/Vol] 6 mmol/L 3 - 13 mmol/L [facility] AST [Catalytic activity/Vol] 11 U/L NINF - 34 U/L [facility] Bilirubin [Mass/Vol] 0.4 mg/dL NINF - 1.2 mg/dL [facility] Calcium [Mass/Vol] 12.1 mg/dL High 8.4 - 10. 2 mg/dL [facility] Chloride [Moles/Vol] 107 mmol/L 98 - 10 7 mmol/L [facility] CO2 [Moles/Vol] 24 mmol/L 22 - 29 mmol/L [facility] Creatinine [Mass/Vol] 1.42 mg/dL High 0.72 - 1.25 mg/dL [facility] GFR/1.73 sq M.predicted (S/P/Bld) [Vol rate/Area] 59.8 mL/min Low - PINF [facility] Comment on above: Calculation based on the Chronic Kidney Disease Epidemiology Collaboration (CKD-EPI) equation refit without adjustment for race Glucose [Mass/Vol] 101 mg/dL High 74 - 100 mg/dL [facility] Interpretation and review of laboratory results Abnormal [facility] Potassium [Moles/Vol] 3.7 mmol/L 3.5 - 5.1 mmol/L [facility] Comment on above: Plasma potassium jeri ues may be up to 0.5 mmol/L lower than serum values. Protein [Mass/Vol] 6.3 g/dL Low 6.4 - 8.3 g/dL [facility] Sodium [Moles/Vol] 137 mmol/L 136 - 145 mmol/L [facility] Urea nitrogen [Mass/Vol] 19 mg/dL 9 - 23 mg/d L [facility] [employer] Consulton 11-09-2024 Consult Attestation signed by Cara [...] minutes (including chart/data review/analysis, care coordination, and [id number] encounter), and was spent discussing/counselin g the [...] & Acute Care Surgery Department of Surgery [facility] Department of General Surgery Surgical Service [...] He had (more content not included)... Normal [facility] ED Nursing Noteon 11-09-2024 ED Nursing Note This RN spoke to Enrique at transfer center for patient update. He stated that they are currently waiting for a bed assignment for the patient at [facility]. Normal [facility] MANUAL DIFFERENTIALon 2024 ANISOCYTOSIS PRESENCE IN BLOOD BY LIGHT MICROSCOPY Slight Abnormal (none) [facility] Comment on above: Performed By: #### L [id number], [id number] ####Information Lead: JAZLYN JIMENEZ ([id number])[facility] ([facility])[address] [place] [address] [place] BAND NEUTROPHILS TOTAL PER COUNTED LEUKOCYTES BY MANUAL COUNT 5 Normal [facility] Comment on above: Performed By: #### L [id number], [id number] ####Information Lead: JAZLYN JIMENEZ ([id number])[facility] ([facility])[address] [place] [address] [place] BANDS 0.7 10*3/uL High <=0.0 [facility] Comment on above: Performed By: #### L [id number], [id number] ####Information Lead: JAZLYN JIMENEZ ([id number])[facility] ([facility])[address] [place] [address] [place] CELLS PRESENCE IN BLOOD BY LIGHT MICROSCOPY Slight Abnormal (none) [facility] Comment on above: Performed By: #### L [id number], [id number] ####Information Lead: JAZLYN JIMENEZ ([id number])[facility])[address] [place] [address] CELLS COUNTED TOTAL (#) IN BLOOD 100 Normal [facility] Comment on above: Performed By: #### Kamila [id number], [id number] ####Information Lead: JAZLYN JIMENEZ ([id number])[facility])[address] [place] [address] [place] DIFFERENTIAL METHOD Manual differential performed Normal [facility] Comment on above: Performed By: #### Kamila [id number], [id number] ####Information Lead: JAZLYN JIMENEZ ([id number])[facility])[address] [place] [address] [place] EOSINOPHILS (10*3/UL) IN BLOOD BY MANUAL COUNT 1.0 10*3/uL High 0.0-0.5 [facility] Comment on above: Performed By: #### L [id number], [id number] ####Information Lead: JAZLYN JIMENEZ ([id number])[facility])[address] [place] [address] [place] EOSINOPHILS TOTAL PER COUNTED LEUKOCYTES BY MANUAL COUNT 8 High 0-1 [facility] Comment on above: Performed By: #### L [id number], [id number] ####Information Lead: JAZLYN JIMENEZ ([id number])[facility] ([facility])[address] [place] [address] [place] EOSINOPHILS/100 LEUKOCYTES IN BLOOD BY MANUAL COUNT 8 % High 0-6 [facility] Comment on above: Performed By: #### L [id number], [id number] ####Information Lead: JAZLYN JIMENEZ ([id number])[facility])[address] [place] [address] [place] LEUKOCYTE MORPHOLOGY FINDING IN BLOOD Normal Normal [facility] Comment on above: Performed By: #### L [id number], [id number] ####Information Lead: JAZLYN JIMENEZ ([id number])[facility] ([facility])[address] [place] [address] [place] LEUKOCYTES (10*3/UL) NUCLEATED ERYTHROCYTE ADJUST 13.0 10*3/uL High 3.6-10.7 [facility] Comment on above: Performed By: #### L [id number], [id number] ####Information Lead: JAZLYN JIMENEZ ([id number])[facility])[address] [place] [address] [place] LYMPHOCYTES (10*3/UL) IN BLOOD BY MANUAL COUNT 1.4 10*3/uL Normal 1.0-4.3 [facility] Comment on above: Performed By: #### L [id number], [id number] ####Information Lead: JAZLYN JIMENEZ ([id number])[facility])[address] [place] [address] [place] LYMPHOCYTES TOTAL PER COUNTED LEUKOCYTES BY MANUAL COUNT 11 Normal [facility] Comment on above: Performed By: #### L [id number], [id number] ####Information Lead: JAZLYN JIMENEZ ([id number])[facility] ([facility])[address] [place] [address] [place] LYMPHOCYTES/100 LEUKOCYTES IN BLOOD BY MANUAL COUNT 11 % Low 15-45 [facility] Comment on above: Performed By: #### L [id number], [id number] ####Information Lead: JAZLYN JIMENEZ ([id number])[facility] ([facility])[address] [place] [address] [place] MACROCYTES (PRESENCE) IN BLOOD BY LIGHT MICROSCOPY Slight Abnormal (none) [facility] Comment on above: Performed By: #### L [id number], [id number] ####Information Lead: JAZLYN JIMENEZ ([id number])[facility])[address] [place] [address] MONOCYTES (10*3/UL) IN BLOOD BY MANUAL COUNT 1.0 10*3/uL High 0.0-0.9 [facility] Comment on above: Performed By: #### L [id number], [id number] ####Information Lead: JAZLYN JIMEENZ ([id number])[facility])[address] [place] [address] MONOCYTES TOTAL PER COUNTED LEUKOCYTES BY MANUAL COUNT 8 Normal [facility] Comment on above: Performed By: #### L [id number], [id number] ####Information Lead: JAZLYN JIMENEZ ([phone])[facility] ([facility])[address] [place] [address] [place] MONOCYTES/100 LEUKOCYTES IN BLOOD BY MANUAL COUNT 8 % Normal 5-13 [facility] Comment on above: Performed By: #### L [id number], [id number] ####Information Lead: JAZLYN JIMENEZ ([id number])[facility])[address] [place] [address] NEUTROPHILS (SEGS+BANDS) (10*3/UL) BY MANUAL COUNT 9.5 10*3/uL High 1.8-7.0 [facility] Comment on above: Performed By: #### L [id number], [id number] ####Information Lead: JAZLYN JIMENEZ ([id number])[facility])[address] [place] [address] [place] NEUTROPHILS BAND FORM/100 LEUKOCYTES IN BLOOD BY MANUAL COUNT 5 % High <=0 [facility] Comment on above: Performed By: #### L [id number], [id number] ####Information Lead: JAZLYN JIMENEZ ([id number])[facility])[address] [place] [address] [place] NEUTROPHILS TOTAL PER COUNTED LEUKOCYTES BY MANUAL COUNT 68 Normal [facility] Comment on above: Performed By: #### L [id number], [id number] ####Information Lead: JAZLYN JIMENEZ ([id number])[facility])[address] [place] [address] OVALOCYTES PRESENCE IN BLOOD BY LIGHT MICROSCOPY Slight Abnormal (none) [facility] Comment on above: Performed By: #### L [id number], [id number] ####Information Lead: JAZLYN JIMENEZ ([id number])[facility] ([facility])[address] [place] [address] PLATELET MORPHOLOGY IN BLOOD Normal Normal [facility] Comment on above: Performed By: #### L [id number], [id number] ####Information Lead: JAZLYN JIMENEZ ([id number])[facility] ([facility])[address] [place] [address] POIKILOCYTOSIS (PRESENCE) IN BLOOD BY LIGHT MICROSCOPY Slight Abnormal (none) [facility] Comment on above: Performed By: #### L [id number], [id number] ####Information Lead: JAZLYN JIMENEZ ([id number])[facility] ([facility])[address] [place] [address] SEGEMENTED NEUTROPHILS/100 LEUKOCYTES BY MANUAL COUNT 68 % Normal 38-82 [facility] Comment on above: Performed By: #### L [id number], [id number] ####Information Lead: JAZLYN JIMENEZ ([id number])[facility] ([facility])[address] [place] [address] SEGMENTED NEUTROPHILS (10*3/UL)IN BLOOD BY MANUAL COUNT 9.5 10*3/uL High 1.8-7.5 [facility] Comment on above: Performed By: #### L [id number], [id number] ####Information Lead: JAZLYN JIMENEZ ([id number])[facility] ([facility])[address] [place] [address] TARGET CELLS IN BLOOD BY LIGHT MICROSCOPY Slight Abnormal (none) [facility] Comment on above: Performed By: #### L [id number], [id number] ####Information Lead: JAZLYN JIMENEZ ([id number])[address] Manual differential performe d Ql (Bld)Ordered By: Flores Rausch on 11-09-2024 Anisocytosis Ql (Bld) Slight Abnormal (none) [facility] Band form neutrophils (Bld) [#/Vol] 0.7 10*3/uL High NINF - 0.0 10*3/uL [facility] Band form neutrophils/100 WBC (Bld) 5 % High NINF - 0 % [facility] Bands Manual 5 [facility] [place] cells LM Ql (Bld) Slight Abnormal (none) [facility] Cells Counted Total (Bld) [#] 100 {cells} [facility] Differential Method Manual differential performed [facility] Eosinophils (Bld) [#/Vol] 1 10*3/uL High 0.0 - 0.5 10*3/uL [facility] Eosinophils Manual 8 High 0 - 1 [facility] Eosinophils/100 WBC (Bld) 8 % High 0 - 6 % [facility] Interpretation and review of laboratory results Abnormal [facility] Leukocyte morphology finding Nom (Bld) Normal [facility] Lymphocytes (Bld) [#/Vol] 1.4 10*3/uL 1.0 - 4.3 10*3/uL [facility] Lymphocytes Manual 11 [facility] Lymphocytes/100 WBC (Bld) 11 % Low 15 - 45 % [facility] Macrocytes Ql (Bld) Slight Abnormal (none) [facility] Monocytes (Bld) [#/Vol] 1 10*3/uL High 0.0 - 0.9 10*3/uL [facility] Monocytes Manual 8 [facility] Monocytes/100 WBC (Bld) 8 % 5 - 13 % [facility] Neutrophils (Bld) [#/Vol] 9.5 10*3/uL High 1.8 - 7.5 10*3/uL [facility] Neutrophils Manual 68 [facility] Ovalocytes LM Ql (Bld) Slight Abnormal (none) [facility] Platelet morphology finding Nom (Bld) Normal [facility] Poikilocytosis LM Ql (Bld) Slight Abnormal (none) [facility] Segmented neutrophils/100 WBC (Bld) 68 % 38 - 82 % [facility] Target cells LM Ql (Bld) Slight Abnormal (none) [facility] WBC corrected for nucl RBC (Bld) [#/Vol] 13 10*3/uL High 3.6 - 10.7 10*3/uL [facility] Nursing Noteon 11-09-2024 Nursing Note transfer center called, stated still no bed are available but checking on if any changes in pt condition. Updated vitals given and isolation status confirmed. Enrique at the transfer center given unit phone number and he stated they will reach out when bed available. Normal [facility] Progress Noteon 11-09-2024 Progress Note Patient is accepted for transfer to pending bed availability. Will continue to monitor on antibiotics. Will hold off on US or biopsy of enhancing lesion at this time, although in the setting of recent infection the etiology is most likely infectious. Surgical team has signed off. Normal [facility] BLOOD CULTUREon 11-08-2024 Bacteria identified Cx Nom (Bld) BLOOD CULTURE Reference No growth at 5 days ORDER COMMENTS: Hidradenitis Blood Collection Site: Left Arm [ S = SUSCEPTIBLE R = RESISTANT I = INTERMEDIATE S-DD = Susceptible-dose dependent NS = Non-susceptible NO = No Interpretation ] Normal [facility] Comment on above: Performed By: #### L [id number], [id number] #### Information Lead: JAZLYN JIMENEZ ([id number]) [address] Bacteria identified Cx Nom (Bld) BLOOD CULTURE Reference No growth at 5 days ORDER COMMENTS: Blood Collection Site: Right Arm [ S = SUSCEPTIBLE R = RESISTANT I = INTERMEDIATE S-DD = Susceptible-dose dependent NS = Non-susceptible NO = No Interpretation ] [facility] Comment on above: Performed By: #### L [id number], [id number] #### Information Lead: JAZLYN JIMENEZ ([id number]) [address] CBC W Auto Differential pane l (Bld)Ordered By: Vielka Cortez on 11-08-2024 Basophils (Bld) [#/Vol] 0.1 10*3/uL 0.0 - 0.2 10*3/uL [facility] Basophils/100 WBC (Bld) 0.5 % 0.0 - 2.0 % [facility] Eosinophils (Bld) [#/Vol] 0.2 10*3/uL 0.0 - 0.5 10*3/uL [facility] Eosinophils/100 WBC (Bld) 1.4 % 0.0 - 6.0 % [facility] Erythrocyte distribution width (RBC) [Ratio] 16.5 % High 11.5 - 15.0 % [facility] Hematocrit (Bld) [Volume fraction] 31.1 % Low 40.0 - 52.0 % [facility] Hemoglobin (Bld) [Mass/Vol] 10.4 g/dL Low 13.0 - 18.0 g/dL [facility] Immature granulocytes (Bld) [#/Vol] 0.1 10*3/uL High NINF - 0.1 10*3/uL [facility] Immature granulocytes/100 WBC (Bld) 0.5 % 0.0 - 2.0 % [facility] Interpretation and review of laboratory results Abnormal [facility] Lymphocytes (Bld) [#/Vol] 1.6 10*3/uL 1.0 - 4.3 10*3/uL [facility] Lymphocytes/100 WBC (Bld) 11.7 % Low 15.0 - 45.0 % [facility] MCH (RBC) [Entitic mass] 28.3 pg 26. 0 - 34.0 pg [facility] MCHC (RBC) [Mass/Vol] 33.4 % 30.5 - 36.0 % [facility] MCV (RBC) [Entitic vol] 84.5 fL 77.0 - 99.0 fL [facility] Monocytes (Bld) [#/Vol] 1.5 10*3/uL High 0.0 - 0.9 10*3/uL [facility] Monocytes/100 WBC (Bld) 10.9 % 5.0 - 13.0 % [facility] Neutrophils (Bld) [#/Vol] 10.4 10*3/uL High 1.8 - 7.5 10*3/uL [facility] Neutrophils/100 WBC (Bld) 75 % 38.0 - 82.0 % [facility] Nucleated RBC/100 WBC (Bld) [Ratio] 0 % [facility] Platelet mean volume (Bld) [Entitic vol] 9.5 fL 9.0 - 12.7 fL [facility] Platelets (Bld) [#/Vol] 634 10*3/uL High 140 - 440 10*3/uL [facility] RBC (Bld) [#/Vol] 3.68 10*6/uL Low 4.40 - 5.9 0 10*6/uL [facility] WBC (Bld) [#/Vol] 13.9 10*3/uL High 3.6 - 10.7 10*3/uL [facility] CBC WITH AUTO DIFFERENTIALon 11-08-2024 Basophils (Bld) [#/Vol] 0.1 10*3/uL Normal 0.0-0.2 [facility] Comment on above: Performed By: #### L [id number] ####Information Lead: JAZLYN JIMENEZ ([id number])[facility])[address] [place] [address] Basophils/100 WBC (Bld) 0.5 % Normal 0.0-2.0 [facility] Comment on above: Performed By: #### L [id number] ####Information Lead: JAZLYN JIMENEZ ([id number])[facility])[address] [place] [address] Eosinophils (Bld) [#/Vol] 0.2 10*3/uL Normal 0.0-0.5 [facility] Comment on above: Performed By: #### L [id number] ####Information Lead: JAZLYN JIMENEZ ([id number])[facility])[address] [place] [address] Eosinophils/100 WBC (Bld) 1.4 % Normal 0.0-6.0 [facility] Comment on above: Performed By: #### L [id number] ####Information Lead: JAZLYN JIMENEZ ([id number])[facility])[address] [place] [address] Erythrocyte distribution width (RBC) [Ratio] 16.5 % High 11.5-15.0 [facility] Comment on above: Performed By: #### L [id number] ####Information Lead: JAZLYN JIMENEZ ([id number])[facility])[address] [place] [address] Hematocrit (Bld) [Volume fraction] 31.1 % Low 40.0-52.0 [facility] Comment on above: Performed By: #### L [id number] ####Information Lead: JAZLYN JIMENEZ ([id number])[facility])[address] [place] [address] Hemoglobin (Bld) [Mass/Vol] 10.4 g/dL Low 13.0-18.0 [facility] Comment on above: Performed By: #### L [id number] ####Information Lead: JAZLYN JIMENEZ ([id number])[facility])[address] [place] [address] IMMATURE GRANS % 0.5 % Normal 0.0-2.0 [facility] Comment on above: Performed By: #### L [id number] ####Information Lead: JAZLYN JIMENEZ ([id number])[facility])[address] [place] [address] IMMATURE GRANS ABSOLUTE 0.1 10*3/uL High <0.1 [facility] Comment on above: Performed By: #### L [id number] ####Information Lead: JAZLYN JIMENEZ ([id number])[facility])[address] [place] [address] Lymphocytes (Bld) [#/Vol] 1.6 10*3/uL Normal 1.0-4.3 [facility] Comment on above: Performed By: #### L [id number] ####Information Lead: JAZLYN JIMENEZ ([id number])[facility])[address] [place] [address] Lymphocytes/100 WBC (Bld) 11.7 % Low 15.0-45.0 [facility] Comment on above: Performed By: #### L [id number] ####Information Lead: JAZLYN JIMENEZ ([id number])[facility])[address] [place] [address] MCH (RBC) [Entitic mass] 28.3 pg Normal 26.0-34.0 [facility] Comment on above: Performed By: #### L [id number] ####Information Lead: JAZLYN JIMENEZ ([id number])[facility])[address] [place] [address] MCHC 33.4 % Normal 30.5-36.0 [facility] Comment on above: Performed By: #### L [id number] ####Information Lead: JAZLYN JIMENEZ ([id number])[facility] ([facility])[address] [place] [address] MCV (RBC) [Entitic vol] 84.5 fL Normal 77.0-99.0 [facility] Comment on above: Performed By: #### L [id number] ####Information Lead: JAZLYN JIMENEZ ([id number])[facility])[address] [place] [address] Monocytes (Bld) [#/Vol] 1.5 10*3/uL High 0.0-0.9 [facility] Comment on above: Performed By: #### L [id number] ####Information Lead: JAZLYN JIMENEZ ([id number])[facility])[address] [place] [address] Monocytes/100 WBC (Bld) 10.9 % Normal 5.0-13.0 [facility] Comment on above: Performed By: #### L [id number] ####Information Lead: JAZLYN JIMENEZ ([id number])[facility])[address] [place] [address] NEUTROPHILS ABSOLUTE 10.4 10*3/uL High 1.8-7.5 [facility] Comment on above: Performed By: #### L [id number] ####Information Lead: JAZLYN JIMENEZ ([id number])[facility])[address] [place] [address] Neutrophils/100 WBC (Bld) 75.0 % Normal 38.0-82.0 [facility] Comment on above: Performed By: #### L [id number] ####Information Lead: JAZLYN JIMENEZ ([id number])[facility] ([facility])[address] [place] [address] NRBC 0.0 /100 WBCs Normal 0.0-2.0 [facility] Comment on above: Performed By: #### L [id number] ####Information Lead: JAZLYN JIMENEZ ([id number])[facility] ([facility])[address] [place] [address] Platelet mean volume (Bld) [Entitic vol] 9.5 fL Normal 9.0-12.7 [facility] Comment on above: Performed By: #### L [id number] ####Information Lead: JAZLYN JIMENEZ ([id number])[facility] ([facility])[address] [place] [address] Platelets (Bld) [#/Vol] 634 10*3/uL High 140-440 [facility] Comment on above: Performed By: #### L [id number] ####Information Lead: JAZLYN JIMENEZ ([id number])[facility] ([facility])[address] [place] [address] RBC (Bld) [#/Vol] 3.68 10*6/uL Low 4.40-5.90 [facility] Comment on above: Performed By: #### L [id number] ####Information Lead: JAZLYN JIMENEZ ([id number])[facility] ([facility])[address] [place] [address] WBC (Bld) [#/Vol] 13.9 10*3/uL High 3.6-10.7 [facility] Comment on above: Performed By: #### L [id number] ####Information Lead: JAZLYN JIMENEZ ([id number])[facility])[address] [place] [address] COMPLETE URINALYSISon 2024 BILIRUBIN, TOTAL PRESENCE IN URINE Negative Normal Negative [facility] Comment on above: Performed By: #### L [id number] ####Information Lead: JAZLYN JIMENEZ ([id number])[facility] ([facility])[address] [place] [address] Clarity (U) Clear Normal Clear [facility] Comment on above: Performed By: #### L [id number] ####Information Lead: JAZLYN JIMENEZ ([id number])[facility] [place] [address] Color (U) Light Yellow Normal Lt. Yellow [facility] Comment on above: Performed By: #### L [id number] ####Information Lead: JAZLYN JIMENEZ ([id number])[facility] [place] [address] GLUCOSE (MG/DL) IN URINE Normal Normal Normal (<70 ) [facility] Comment on above: Performed By: #### L [id number] ####Information Lead: JAZLYN JIMENEZ ([id number])[facility] ([facility])[address] [place] [address] HEMOGLOBIN PRESENCE IN URINE Negative Normal Negative [facility] Comment on above: Performed By: #### L [id number] ####Information Lead: JAZLYN JIMENEZ ([id number])[facility] ([facility])[address] [place] [address] Ketones Ql (U) Negative Normal Negative [facility] Comment on above: Performed By: #### L [id number] ####Information Lead: JAZLYN JIMENEZ ([id number])[facility] ([facility])[address] [place] [address] LEUKOCYTE ESTERASE PRESENCE IN URINE BY TEST STRIP Negative Normal Negative [facility] Comment on above: Performed By: #### L [id number] ####Information Lead: JAZLYN JIMENEZ ([id number])[facility] ([facility])[address] [place] [address] NITRITE PRESENCE IN URINE Negative Normal Negative [facility] Comment on above: Performed By: #### L [id number] ####Information Lead: JAZLYN JIMENEZ ([id number])[facility])[address] pH (U) 5.5 [pH] Normal 5.0-8.0 [facility] Comment on above: Performed By: #### L [id number] ####Information Lead: JAZLYN JIMENEZ ([id number])[facility] ([facility])[address] [place] [address] Protein (U) [Mass/Vol] Negative Normal Negative [facility] Comment on above: Performed By: #### L [id number] ####Information Lead: JAZLYN JIMENEZ ([id number])[facility] ([facility])[address] [place] [address] Specific gravity (U) [Rel density] 1.017 Normal 1.005-1.030 [facility] Comment on above: Performed By: #### L [id number] ####Information Lead: JAZLYN JIMENEZ ([id number])[facility])[address] [place] [address] UROBILINOGEN (MG/DL) IN URINE Normal Normal Normal (0-1) [facility] Comment on above: Performed By: #### L [id number] ####Information Lead: JAZLYN JIMENEZ ([id number])[facility])[address] [place] [address] [address]PREHENS[address] METABOLIC PANE Yuriy 11-08-2024 Albumin [Mass/Vol] 3.0 g/dL Low 3.5-5.0 [facility] Comment on above: Performed By: #### L AB17, [id number] ####Information Lead: JAZLYN JIMENEZ ([id number])[facility] ([facility])[address] [place] [address] ALP [Catalytic activity/Vol] 84 U/L Normal 40-150 [facility] Comment on above: Performed By: #### L AB17, [id number] ####Information Lead: JAZLYN JIMENEZ ([id number])[facility])[address] [place] [address] ALT [Catalytic activity/Vol] 7 U/L Normal <40 [facility] Comment on above: Performed By: #### L AB17, [id number] ####Information Lead: JAZLYN JIMENEZ ([id number])[facility] [place] [address] Anion gap [Moles/Vol] 10 mmol/L Normal 3-13 [facility] Comment on above: Performed By: #### L AB17, [id number] ####Information Lead: JAZLYN JIMENEZ ([id number])[facility] [place] [address] AST [Catalytic activity/Vol] 14 U/L Normal <34 [facility] Comment on above: Performed By: #### L AB17, [id number] ####Information Lead: JAZLYN JIMENEZ ([id number])[facility] ([facility])[address] [place] [address] Bilirubin [Mass/Vol] 0.5 mg/dL Normal <1.2 [facility] Comment on above: Performed By: #### L AB17, [id number] ####Information Lead: AJZLYN JIMENEZ ([id number])[facility] [place] [address] Calcium [Mass/Vol] 13.5 mg/dL High 8.4-10.2 [facility] Comment on above: Performed By: #### L AB17, [id number] ####Information Lead: JAZLYN JIMENEZ ([id number])[facility] ([facility])[address] [place] [address] [place] Chloride [Moles/Vol] 103 mmol/L Normal 98-107 [facility] Comment on above: Performed By: #### L AB17, [id number] ####Information Lead: JAZLYN JIMENEZ ([id number])[facility] ([facility])[address] [place] [address] [place] CO2 [Moles/Vol] 24 mmol/L Normal 22-29 [facility] Comment on above: Performed By: #### L AB17, [id number] ####Information Lead: JAZLYN JIMENEZ ([id number])[facility] ([facility])[address] [place] [address] Creatinine [Mass/Vol] 1.39 mg/dL High 0.72-1.25 [facility] Comment on above: Performed By: #### L 17, [id number] ####Information Lead: JAZLYN JIMENEZ ([id number])[facility])[address] [place] [address] GLOMERULAR FILTRATION RATE ML/MIN/1.73 SQ M.PREDICTED 61.4 mL/min/1.73m*2 Normal >60.0 [facility] Comment on above: Result Comment: Calc ulation based on the Chronic Kidney Disease Epidemiology Collaboration (CKD-EPI) equation refit without adjustment for race Performed By: #### Kamila RODAS, [id number] ####Information Lead: JAZLYN JIMENEZ ([id number])[facility])[address] [place] [address] Glucose [Mass/Vol] 104 mg/dL High 74-100 [facility] Comment on above: Performed By: #### Kamila BRANHAM17, [id number] ####Information Lead: JAZLYN JIMENEZ ([id number])[facility])[address] [place] [address] Potassium [Moles/Vol] 4.2 mmol/L Normal 3.5-5.1 [facility] Comment on above: Result Comment: [facility] potassium values may be up to 0.5 mmol/L lower than serum values. Performed By: #### Kamila BRANHAM17, [id number] ####Information Lead: JAZLYN JIMENEZ ([phone])[facility])[address] [place] [address] Protein [Mass/Vol] 7.7 g/dL Normal 6.4-8.3 [facility] Comment on above: Performed By: #### L AB17, [id number] ####Information Lead: JAZLYN JIMENEZ ([id number])[facility])[address] [place] [address] [place] Sodium [Moles/Vol] 137 mmol/L Normal 136-145 [facility] Comment on above: Performed By: #### L AB17, [id number] ####Information Lead: JAZLYN JIMENEZ ([id number])[facility] [place] [address] Urea nitrogen [Mass/Vol] 21 mg/dL Normal 9-23 [facility] Comment on above: Performed By: #### L AB17, [id number] ####Information Lead: JAZLYN JIMENEZ ([id number])[facility] [place] [address] CT PELVIS W IV [address] PELVIS [...] on back from abscesses. Pt arrives from [facility] for possible sepsis. Had wound on buttock drained at in Sep. Has not had IV antibiotics at facility. Hx of rare skin condition with frequent abscesses. Aox4. Some N/V. Hypotensive 80-90 systolic. Normal [facility] CT Pelvis W contrast Mp 1. 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 [facility] Julio Sears MD - 11/08/2024 [facility] Name: [facility]AN LA [facility] 1975 [id number] Exam Date/Time: 11/08/2024 16:38 Procedure: CT PELVIS [...] MD Electronically Signed Date/Time: 11/08/2024 5:20 PM [facility] Radiology Study observation (narrative) [facility] Pelvis W contrast IVOrder ed By: Julio Sears on 11-08-2024 [facility] Work Phone: Comprehensive metabolic 1998 panelon 11-08-2024 Albumin [Mass/Vol] 3 g/dL Low 3.5 - 5.0 g/dL [facility] ALP [Catalytic activity/Vol] 84 U/L 40 - 150 U/L [facility] ALT [Catalytic activity/Vol] 7 U/L NINF - 40 U/L [facility] Anion gap [Moles/Vol] 10 mmol/L 3 - 13 mmol/L [facility] AST [Catalytic activity/Vol] 14 U/L NINF - 34 U/L [facility] Bilirubin [Mass/Vol] 0.5 mg/dL NINF - 1.2 mg/dL [facility] Calcium [Mass/Vol] 13.5 mg/dL High 8.4 - 10. 2 mg/dL [facility] Chloride [Moles/Vol] 103 mmol/L 98 - 10 7 mmol/L [facility] CO2 [Moles/Vol] 24 mmol/L 22 - 29 mmol/L [facility] Creatinine [Mass/Vol] 1.39 mg/dL High 0.72 - 1.25 mg/dL [facility] GFR/1.73 sq M.predicted (S/P/Bld) [Vol rate/Area] 61.4 mL/min - PINF [facility] Comment on above: Calculation based on the Chronic Kidney Disease Epidemiology Collaboration (CKD-EPI) equation refit without adjustment for race Glucose [Mass/Vol] 104 mg/dL High 74 - 100 mg/dL [facility] Interpretation and review of laboratory results Abnormal [facility] Potassium [Moles/Vol] 4.2 mmol/L 3.5 - 5.1 mmol/L [facility] Comment on above: Plasma potassium jeri ues may be up to 0.5 mmol/L lower than serum values. Protein [Mass/Vol] 7.7 g/dL 6.4 - 8.3 g/dL [facility] Sodium [Moles/Vol] 137 mmol/L 136 - 145 mmol/L [facility] Urea nitrogen [Mass/Vol] 21 mg/dL 9 - 23 mg/d L [facility] Consulton 11-08-2024 Consult Pharmacy Managed Vancomycin Dosing Service Consult Note Consult Date: 11/08/24 Patient Name: Kevan La Allergies: Patient has no known allergies. Age: 49 y.o. Sex: male Estimated body mass index is 25.91 kg/m? as calculated from the following: Height as of 09/13/24: 2.007 m (6' 7). Weight as of this encounter: 104 kg [...] creatinine, and vancomycin levels interfaced automatically to [employer] and data has been analyzed and interpreted. [...] DATE: 11/08/24 TIME: 11:24 PM Sara Ziegler, William Clinical Pharmacist Available via Secure Chat [facility] ED Nursing Noteon 11-08-2024 ED Nursing Note Provider messaged about BP and MAP [facility] ED Nursing Note Provider messaged about orders [facility] ED Nursing Note Patient requested pain medication and dinner. This nurse messaged provider [facility] ED Nursing Note Patient is aware of patients BP and MAP. [facility] ED Nursing Note Liter of NS hung for systolic of 88. IV obtained with blood work and first set of cultures. Will notify doctor of BP. [facility] ED Provider Noteon ED Provider Note Emergency Department Encounter Location: [facility] MSU H5 Patient: [...] 1.8 - (more content not included)... Normal [facility] ED Provider Note EMERGENCY DEPARTMENT ENCOUNTER [...] Resource Strain: Medium Risk (10/12/2024) Received from [facility] Overall Financial Resource Strain (CARDIA) Difficulty of Paying Living Expenses: Somewhat hard Food Insecurity: Food Insecurity Present (10/11/2024) Received from [facility] Hunger Vital Sign Worried About Running Out of Food in the Last Year: Sometimes true Ran Out of Food in the Last Year: Sometimes true Transportation Needs: No Transportation Needs (10/12/2024) Received from [facility] PRAPARE - Transportation Lack of Transportation (Medical): No Lack of Transportation (Non-Medical): No Intimate Partner Violence: Not At Risk (10/11/2024) Received from [facility] Humiliation, Afraid, Rape, and Kick questionnaire Fear of Current or Ex-Partner: No Emotionally Abused: No Physically Abused: No Sexually Abused: No Housing Stability: Low Risk (10/12/2024) Received from [facility] Housing Stability Vital Sign Unable to Pay for Housing in the Last Year: No Number of Times Moved in the Last Year: 1 Homeless in the Last Year: No Recent Concern: Housing Stability - High Risk (09/17/2024) Received from [facility] Housing Stability Vital Sign Unable to Pay [...] Emergency Physic (more content not included)... Normal [facility] ED Provider Note Emergency Department Encounter [facility] EMERGENCY DEPT Patient: Kevan La : [...] pressure and wound check. Patient coming from [facility] for possible sepsis. Patient has chronic refractory [...] Solutions Fer Kennedy MD 11/08/24 1651 Normal [facility] HEMOGLOBIN A1Con 11-08-2024 Glucose [Mass/Vol] 103 mg/dL Normal [facility] Comment on above: Result Comment: MAYRA Dhillon COMMENTS: HbA1c values of 5.7-6.4 percent indicate an increased risk for developing diabetes mellitus. HbA1c values greater than or equal to 6.5 percent are diagnostic of diabetes mellitus. For diagnosis of diabetes in individuals without unequivocal hyperglycemia, results should be confirmed by repeat testing. Performed By: #### L [id number] ####Information Lead: JAZLYN JIMENEZ ([id number])[facility] ([facility])[address] [place] [address] HEMOGLOBIN A1C 5.2 %HbA1C Normal <5.7 [facility] Comment on above: Result Comment: Norm al less than 5.7% Prediabetes 5.7% to 6.4% Diabetes 6.5% or higher --HgbA1C levels may not be accurate in patients who have renal disease, received recent blood transfusions, are anemic, or who have dyshemoglobinemia. Performed By: #### L [id number] ####Information Lead: JAZLYN JIMENEZ ([id number])[facility] ([facility])[address] [place] [address] LACTIC ACID WITH REFLEXon Lactate [Moles/Vol] 1.2 mmol/L Normal 0.5-2.2 [facility] Comment on above: Performed By: #### L [id number] ####Information Lead: JAZLYN JIMENEZ ([id number])[facility] ([facility])[address] [place] [address] Laboratory - Chemistry and C hemistry - challengeon 11-08-2024 Average glucose Estimated from glycated hemoglobin (Bld) [Mass/Vol] 103 mg/dL [facility] [employer] TSH Qn 0.84 m[IU]/L [facility] Lactate [Moles/Vol] 1.2 mmol/L 0.5 - 2. 2 mmol/L [facility] Laboratory - Hematology and Cell countson 11-08-2024 HbA1c (Bld) [Mass fraction] 5.2 % [facility] Comment on above: Normal less than [...] results should be confirmed by repeat testing. [facility] [employer] Interpretation and review of laboratory results Normal [facility] THYROID STIMULATING HORMONEo n 11-08-2024 THYROID STIMULATING HORMONE 0.84 uIU/mL Normal 0.35-4.94 [facility] Comment on above: Performed By: #### L [id number], [id number] ####Information Lead: JAZLYN JIMENEZ ([id number])[facility] ([facility])[address] [place] [address] TSH Qnon 11-08-2024 Interpretation and review of laboratory results Normal [facility] Urinalysis complete panel (U )on 11-08-2024 Bilirubin Ql (U) Negative Negative mg/dL [facility] Clarity (U) Clear Clear [facility] Color (U) Light Yellow Lt. Yellow [facility] Glucose Ql (U) Normal Normal (<70) mg/dL [facility] Hemoglobin Ql (U) Negative Negative mg/dL [facility] Interpretation and review of laboratory results Normal [facility] Ketones (U) [Mass/Vol] Negative Negat sulema mg/dL [facility] Leukocyte esterase Test strip Ql (U) Negative Negative Gabe/uL [facility] Nitrite Ql (U) Negative Negative [facility] th pH (U) 5.5 [pH] 5.0 - 8.0 pH [facility] Protein (U) [Mass/Vol] Negative Negat sulema mg/dL [facility] Specific gravity (U) [Rel density] 1.017 1.005 - 1.030 [facility] Urobilinogen (U) [Mass/Vol] Normal Normal (0-1) mg/dL [facility] [id number] DOrdered By: Vanda Nolasco on 10-24-2024 Vitamin D 25-Hydroxy 63.4 ng/mL [facility] Comment on above: Vitamin D 25(OH) Sta tus Range Deficiency <20 ng/mL (50nmol/L) Insufficiency 20 - 30 ng/mL (50 - 75 nmol/L) Sufficiency 30 - 100 ng/mL (75 - 250 nmol/L) Toxicity >100 ng/mL (>250 nmol/L) Blood urea nitrogen (BUN)/cr eatinine ratioOrdered By: Julio Nolasco on 10-24-2024 Urea nitrogen/Creatinine [Mass ratio] 14.0 mg/mg 10-20 [facility] Carbon dioxide measurementOr dered By: Julio Nolasco on 10-24-2024 CO2 [Moles/Vol] 26.0 mmol/L 21.0-32.0 [facility] Chloride measurementOrdered By: Julio Nolasco on 10-24-2024 Chloride [Moles/Vol] 104 mmol/L 98-107 [facility] Erythrocyte distribution wid th (RBC) [Ratio]Ordered By: Julio Nolasco on 10-24-2024 Erythrocyte distribution width (RBC) [Entitic vol] 60.6 fL High 35.1-43.9 [facility] Erythrocyte distribution wid th ratioOrdered By: Julio Nolasco on 10-24-2024 Erythrocyte distribution width (RBC) [Ratio] 18.5 % High 11.6-14.6 [facility] Estimated glomerular filtrat ion rate (GFR) AmericanOrdered By: Julio Nolasco on 10-24-2024 Estimated GFR (MDRD) Amer 75 mL/min >60 [facility] Comment on above: GFR Calc Glomerular filtration rate ( GFR) estimationOrdered By: Julio Nolasco on 10-24-2024 Estimated GFR (MDRD) Non-Af Amer 62 mL/min >60 [facility] Comment on above: Non- GFR Calc Glucose measurementOrdered B y: Julio Nolasco on 10-24-2024 Glucose [Mass/Vol] 95 mg/dL 74-106 [facility] Hematocrit Auto (Bld) [Volum e fraction]Ordered By: Julio Nolasco on 10-24-2024 Hematocrit (Bld) [Volume fraction] 26.4 % Low 40-54 [facility] Hemoglobin A1c percentageOrd ered By: Julio Nolasco on 10-24-2024 HbA1c (Bld) [Mass fraction] 5.2 % 3.8-5.6 [facility] Comment on above: Normal < 5.7 % Predi abetic 5.7 - 6.4 % Diabetic >or= 6.5 % Please note range changes. Hemoglobin measurementOrdere d By: Julio Nolasco on 10-24-2024 Hemoglobin (Bld) [Mass/Vol] 8.4 g/dL Low 13.0-16.5 [facility] High density lipoprotein (HD L) measurementOrdered By: Julio Nolasco on 10-24-2024 Cholesterol in HDL [Mass/Vol] 38 mg/dL Low >40 [facility] Comment on above: The drugs N-Acetylcy steine and Metamizole may falsely depress this assay. Reference Range HDL <40 mg/dL Low HDL Cholesterol HDL >or= 60 mg/dL High HDL Cholesterol Low density lipoprotein (LDL ) cholesterol measurementOrdered By: Julio Nolasco on 10-24-2024 Cholesterol in LDL [Mass/Vol] 96 mg/dL 0-130 [facility] MCV (mean corpuscular volume ) determinationOrdered By: Julio Nolasco on 10-24-2024 MCV (RBC) [Entitic vol] 89.5 fL 80-94 [facility] Mean corpuscular hemoglobin (MCH) determinationOrdered By: Julio Nolasco on 10-24-2024 MCH (RBC) [Entitic mass] 28.5 pg 27.0-32.0 [facility] Mean corpuscular hemoglobin concentration (MCHC) determinationOrdered By: Julio Nolasco on 10-24-2024 MCHC (RBC) [Mass/Vol] 31.8 g/dL Low 32-36 [facility] Mean platelet volume determi nationOrdered By: Julio Nolasco on 10-24-2024 Platelet mean volume (Bld) [Entitic vol] 8.7 fL 6.2-12.0 [facility] Platelet countOrdered By: Antwon Nolasco on 10-24-2024 Platelets (Bld) [#/Vol] 536 10*3/uL High 150-450 [facility] Potassium measurementOrdered By: Julio Nolasco on 10-24-2024 Potassium [Moles/Vol] 4.0 mmol/L 3.5-5.1 [facility] RBC Auto (Bld) [#/Vol]Ordere d By: Julio Nolasco on 10-24-2024 RBC (Bld) [#/Vol] 2.95 10*6/uL Low 4.6-6.2 [facility] Serum anion gap measurementO rdered By: Julio Nolasco on 10-24-2024 Anion gap [Moles/Vol] 7 mmol/L 5-15 [facility] Serum or plasma calcium mervat urement (mass/volume)Ordered By: Julio Nolasco on 10-24-2024 Calcium [Mass/Vol] 10.3 mg/dL High 8.5-10.1 [facility] Serum or plasma cholesterol measurement (mass/volume)Ordered By: Julio Nolasco on 10-24-2024 Cholesterol [Mass/Vol] 164 mg/dL <200 [facility] Comment on above: <200 mg/dL Desirable 200-240 mg/dL Borderline >240 mg/dL High Risk Serum or plasma creatinine m easurement (mass/volume)Ordered By: Julio Nolasco on 10-24-2024 Creatinine [Mass/Vol] 1.29 mg/dL 0.70-1.30 [facility] Comment on above: The validity of the calculated GFR & GFRAA in patients over 70 years has not been determined. Clinical correlation is essential. Serum or plasma urea nitroge n measurement (mass/volume)Ordered By: Julio Nolasco on 10-24-2024 Urea nitrogen [Mass/Vol] 18 mg/dL 7-18 [facility] Sodium levelOrdered By: William Nolasco on 10-24-2024 Sodium [Moles/Vol] 137 mmol/L 136-145 [facility] TSH QnOrdered By: Julio johnson on 10-24-2024 Thyroid Stimulating Hormone (TSH) 5.030 uIU/mL High 0.358-3.740 [facility] Triglycerides measurementOrd ered By: Julio Nolasco on 10-24-2024 Triglyceride [Mass/Vol] 150 mg/dL <199 [facility] Comment on above: The drugs N-Acetylcy steine and Metamizole may falsely depress this assay.Serum Triglycerides Reference Interval Normal <150 mg/dL Borderline high 150 - 199 mg/dL High 200 - 499 mg/dL Very High > or = 500 mg/dL Very low density lipoprotein (VLDL) cholesterol measurementOrdered By: Julio Nolasco on 10-24-2024 VLDL Cholesterol 30 mg/dL 5-40 [facility] White blood cell (WBC) count Ordered By: Julio Nolasco on 10-24-2024 WBC (Bld) [#/Vol] 12.2 10*3/uL High 4.4-11.0 [facility] Basic metabolic 2000 panelon 10-23-2024 Anion gap [Moles/Vol] 13 mmol/L 10 - 2 0 mmol/L [facility] Calcium [Mass/Vol] 10.2 mg/dL 8.6 - 10. 6 mg/dL [facility] Chloride [Moles/Vol] 101 mmol/L 98 - 10 7 mmol/L [facility] CO2 [Moles/Vol] 27 mmol/L 21 - 32 mmol/L [facility] Creatinine [Mass/Vol] 1.37 mg/dL High 0.50 - 1.30 mg/dL [facility] GFR/1.73 sq M.predicted among non-blacks MDRD (S/P/Bld) [Vol rate/Area] 62 mL/min/{1.73_m2} - PINF [facility] Glucose [Mass/Vol] 98 mg/dL 74 - 99 mg/dL [facility] Interpretation and review of laboratory results Abnormal [facility] Potassium [Moles/Vol] 4.3 mmol/L 3.5 - 5.3 mmol/L [facility] Sodium [Moles/Vol] 137 mmol/L 136 - 145 mmol/L [facility] Urea nitrogen [Mass/Vol] 20 mg/dL 6 - 23 mg/d L [facility] CBC W Auto Differential pane l (Bld)on 10-23-2024 Basophils (Bld) [#/Vol] 0.08 10*3/uL [facility] Basophils/100 WBC (Bld) 0.6 % 0.0 - 2.0 % [facility] Eosinophils (Bld) [#/Vol] 0.23 10*3/uL [facility] Eosinophils/100 WBC (Bld) 1.7 % 0.0 - 6.0 % [facility] Erythrocyte distribution width (RBC) [Ratio] 18.6 % High 11.5 - 14.5 % [facility] Hematocrit (Bld) [Volume fraction] 26.4 % Low 41.0 - 52.0 % [facility] Hemoglobin (Bld) [Mass/Vol] 8.3 g/dL Low 13.5 - 17.5 g/dL [facility] Immature granulocytes (Bld) [#/Vol] 0.06 10*3/uL [facility] Immature granulocytes/100 WBC (Bld) 0.5 % 0.0 - 0.9 % [facility] Interpretation and review of laboratory results Abnormal [facility] Lymphocytes (Bld) [#/Vol] 1.57 10*3/uL [facility] Lymphocytes/100 WBC (Bld) 11.8 % 13.0 - 44.0 % [facility] MCH (RBC) [Entitic mass] 27.9 pg 26. 0 - 34.0 pg [facility] MCHC (RBC) [Mass/Vol] 31.4 g/dL Low 32.0 - 36.0 g/dL [facility] MCV (RBC) [Entitic vol] 89 fL 80 - 100 fL [facility] Monocytes (Bld) [#/Vol] 1.38 10*3/uL High [facility] Monocytes/100 WBC (Bld) 10.4 % 2.0 - 10.0 % [facility] Neutrophils (Bld) [#/Vol] 9.93 10*3/uL High [facility] Neutrophils/100 WBC (Bld) 75 % 40.0 - 80.0 % [facility] Nucleated RBC/100 WBC (Bld) [Ratio] 0 % [facility] Platelets (Bld) [#/Vol] 525 10*3/uL High [facility] RBC (Bld) [#/Vol] 2.98 10*6/uL [facility] W[facility] ([facility]ld[facility] [#/Vol] 13.3 10*3/uL [facility] Magnesiumon 10-23-2024 Magnesium [Mass/Vol] 2 mg/dL 1.60 - 2.40 mg/dL [facility] No Panel Informationon 10-23 Interpretation and review of laboratory results Normal [facility] Phosphoruson 10-23-2024 Phosphate [Mass/Vol] 3.7 mg/dL 2.5 - 4 .9 mg/dL [facility] Basic metabolic 2000 panelon 10-22-2024 Anion gap [Moles/Vol] 14 mmol/L 10 - 2 0 mmol/L [facility] Calcium [Mass/Vol] 10.3 mg/dL 8.6 - 10. 6 mg/dL [facility] Chloride [Moles/Vol] 100 mmol/L 98 - 10 7 mmol/L [facility] CO2 [Moles/Vol] 26 mmol/L 21 - 32 mmol/L [facility] Creatinine [Mass/Vol] 1.43 mg/dL High 0.50 - 1.30 mg/dL [facility] GFR/1.73 sq M.predicted among non-blacks MDRD (S/P/Bld) [Vol rate/Area] 59 mL/min/{1.73_m2} Low - PINF [facility] Glucose [Mass/Vol] 111 mg/dL High 74 - 99 mg/dL [facility] Interpretation and review of laboratory results Abnormal [facility] Potassium [Moles/Vol] 4.2 mmol/L 3.5 - 5.3 mmol/L [facility] Sodium [Moles/Vol] 136 mmol/L 136 - 145 mmol/L [facility] Urea nitrogen [Mass/Vol] 18 mg/dL 6 - 23 mg/d L [facility] CBC W Auto Differential pane l (Bld)on 10-22-2024 Basophils (Bld) [#/Vol] 0.06 10*3/uL [facility] Basophils/100 WBC (Bld) 0.4 % 0.0 - 2.0 % [facility] Eosinophils (Bld) [#/Vol] 0.33 10*3/uL [facility] Eosinophils/100 WBC (Bld) 2.4 % 0.0 - 6.0 % [facility] Erythrocyte distribution width (RBC) [Ratio] 18.5 % High 11.5 - 14.5 % [facility] Hematocrit (Bld) [Volume fraction] 26.8 % Low 41.0 - 52.0 % [facility] Hemoglobin (Bld) [Mass/Vol] 8.3 g/dL Low 13.5 - 17.5 g/dL [facility] Immature granulocytes (Bld) [#/Vol] 0.07 10*3/uL [facility] Immature granulocytes/100 WBC (Bld) 0.5 % 0.0 - 0.9 % [facility] Interpretation and review of laboratory results Abnormal [facility] Lymphocytes (Bld) [#/Vol] 1.75 10*3/uL [facility] Lymphocytes/100 WBC (Bld) 12.5 % 13.0 - 44.0 % [facility] MCH (RBC) [Entitic mass] 27.7 pg 26. 0 - 34.0 pg [facility] MCHC (RBC) [Mass/Vol] 31 g/dL Low 32.0 - 36.0 g/dL [facility] MCV (RBC) [Entitic vol] 89 fL 80 - 100 fL [facility] Monocytes (Bld) [#/Vol] 1.29 10*3/uL High [facility] Monocytes/100 WBC (Bld) 9.2 % 2.0 - 10.0 % [facility] Neutrophils (Bld) [#/Vol] 10.52 10*3/uL High [facility] Neutrophils/100 WBC (Bld) 75 % 40.0 - 80.0 % [facility] Nucleated RBC/100 WBC (Bld) [Ratio] 0 % [facility] Platelets (Bld) [#/Vol] 556 10*3/uL High [facility] RBC (Bld) [#/Vol] 3 10*6/uL Low [facility] WBC (Bld) [#/Vol] 14 10*3/uL High [facility] Magnesiumon 10-22-2024 Magnesium [Mass/Vol] 1.94 mg/dL 1.60 - 2.40 mg/dL [facility] No Panel Informationon 10-22 Interpretation and review of laboratory results Normal [facility] Phosphoruson 10-22-2024 Phosphate [Mass/Vol] 3.1 mg/dL 2.5 - 4 .9 mg/dL [facility] Basic metabolic 2000 panelon 10-21-2024 Anion gap [Moles/Vol] 14 mmol/L 10 - 2 0 mmol/L [facility] Calcium [Mass/Vol] 10 mg/dL 8.6 - 10. 6 mg/dL [facility] Chloride [Moles/Vol] 103 mmol/L 98 - 10 7 mmol/L [facility] CO2 [Moles/Vol] 26 mmol/L 21 - 32 mmol/L [facility] Creatinine [Mass/Vol] 1.55 mg/dL High 0.50 - 1.30 mg/dL [facility] GFR/1.73 sq M.predicted among non-blacks MDRD (S/P/Bld) [Vol rate/Area] 54 mL/min/{1.73_m2} Low - PINF [facility] Glucose [Mass/Vol] 98 mg/dL 74 - 99 mg/dL [facility] Interpretation and review of laboratory results Abnormal [facility] Potassium [Moles/Vol] 4.4 mmol/L 3.5 - 5.3 mmol/L [facility] Sodium [Moles/Vol] 139 mmol/L 136 - 145 mmol/L [facility] Urea nitrogen [Mass/Vol] 20 mg/dL 6 - 23 mg/d L [facility] CBC W Auto Differential pane l (Bld)on 10-21-2024 Erythrocyte distribution width (RBC) [Ratio] 18.5 % High 11.5 - 14.5 % [facility] Hematocrit (Bld) [Volume fraction] 26 % Low 41.0 - 52.0 % [facility] Hemoglobin (Bld) [Mass/Vol] 8 g/dL Low 13.5 - 17.5 g/dL [facility] Immature granulocytes (Bld) [#/Vol] 0.07 10*3/uL [facility] Immature granulocytes/100 WBC (Bld) 0.6 % 0.0 - 0.9 % [facility] MCH (RBC) [Entitic mass] 27.9 pg 26. 0 - 34.0 pg [facility] MCHC (RBC) [Mass/Vol] 30.8 g/dL Low 32.0 - 36.0 g/dL [facility] MCV (RBC) [Entitic vol] 91 fL 80 - 100 fL [facility] Nucleated RBC/100 WBC (Bld) [Ratio] 0 % [facility] Platelets (Bld) [#/Vol] 549 10*3/uL High [facility] RBC (Bld) [#/Vol] 2.87 10*6/uL Low [facility] WBC (Bld) [#/Vol] 12.4 10*3/uL High [facility] MRSA isol Org specific cx Ql (Nose)Ordered By: Anabelle Guerrero on 10-21-2024 Interpretation and review of laboratory results Normal [facility] Staphylococcus sp identified Org specific cx Nom (Unsp spec) No Staphylococcus aureus isolated [facility] Magnesiumon 10-21-2024 Magnesium [Mass/Vol] 2.03 mg/dL 1.60 - 2.40 mg/dL [facility] Manual differential performe d Ql (Bld)on 10-21-2024 Basophils (Bld) [#/Vol] 0.21 10*3/uL [facility] Basophils/100 WBC (Bld) 1.7 % 0.0 - 2.0 % [facility] Cells Counted Total (Bld) [#] 117 {cells} [facility] Eosinophils (Bld) [#/Vol] 0.21 10*3/uL [facility] Eosinophils/100 WBC (Bld) 1.7 % 0.0 - 6.0 % [facility] Hypochromia Ql (Bld) Mild [facility] Lymphocytes (Bld) [#/Vol] 2.54 10*3/uL [facility] Lymphocytes/100 WBC (Bld) 20.5 % 13.0 - 44.0 % [facility] Monocytes (Bld) [#/Vol] 0.53 10*3/uL [facility] Monocytes/100 WBC (Bld) 4.3 % 2.0 - 10.0 % [facility] RBC morphology finding Nom (Bld) See Below [facility] Segmented neutrophils (Bld) [#/Vol] 8.79 10*3/uL [facility] Segmented neutrophils/100 WBC (Bld) 70.9 % 40.0 - 80.0 % [facility] Variant lymphocytes (Bld) [#/Vol] 0.11 10*3/uL [facility] Variant lymphocytes/100 WBC (Bld) 0.9 % 0.0 - 2.0 % [facility] No Panel Informationon 10-21 Interpretation and review of laboratory results Normal [facility] Interpretation and review of laboratory results Abnormal [facility] Phosphoruson 10-21-2024 Phosphate [Mass/Vol] 3.9 mg/dL 2.5 - 4 .9 mg/dL [facility] US.doppler Lower extremity v ein - bilateralon 10-21-2024 SYNGO [facility] Work Phone: Radiology Study observation (narrative) [facility] Work Phone: US.doppler Lower extremity v ein - bilateralOrdered By: Viki Colin on 10-21-2024 [facility] Work Phone: Vancomycinon 10-21-2024 Vancomycin [Mass/Vol] 4.4 ug/mL Low 5.0 - 20.0 ug/mL [facility] Vancomycin [Mass/Vol]on Interpretation and review of laboratory results Abnormal [facility] Bacteria identified Cx Nom ( Bld)Ordered By: Jennifer Saravia on 10-20-2024 Bacteria identified Aer cx Nom (Bld) Positive [facility] Interpretation and review of laboratory results Abnormal [facility] Microscopic observation Gram stain Nom (Unsp spec) Positive Critically abnormal [facility] Basic metabolic 2000 panelon 10-20-2024 Anion gap [Moles/Vol] 15 mmol/L 10 - 2 0 mmol/L [facility] Calcium [Mass/Vol] 10.4 mg/dL 8.6 - 10. 6 mg/dL [facility] Chloride [Moles/Vol] 104 mmol/L 98 - 10 7 mmol/L [facility] CO2 [Moles/Vol] 27 mmol/L 21 - 32 mmol/L [facility] Creatinine [Mass/Vol] 1.39 mg/dL High 0.50 - 1.30 mg/dL [facility] GFR/1.73 sq M.predicted among non-blacks MDRD (S/P/Bld) [Vol rate/Area] 61 mL/min/{1.73_m2} - PINF [facility] Glucose [Mass/Vol] 102 mg/dL High 74 - 99 mg/[facility] Interpretation and review of laboratory results Abnormal [facility] Potassium [Moles/Vol] 4.5 mmol/L 3.5 - 5.3 mmol/L [facility] Sodium [Moles/Vol] 141 mmol/L 136 - 145 mmol/L [facility] Urea nitrogen [Mass/Vol] 17 mg/dL 6 - 23 mg/d L [facility] Bedside PICC Imagingon 10-20 IMAGING Blood CultureOrdered By: Rubina Saravia on 10-20-2024 Bacteria identified Cx Nom (Bld) Staphylococcus hominis Abnormal [facility] CBC W Auto Differential pane l (Bld)on 10-20-2024 Basophils (Bld) [#/Vol] 0.11 10*3/uL High [facility] Basophils/100 WBC (Bld) 0.7 % 0.0 - 2.0 % [facility] Eosinophils (Bld) [#/Vol] 0.35 10*3/uL [facility] Eosinophils/100 WBC (Bld) 2.1 % 0.0 - 6.0 % [facility] Erythrocyte distribution width (RBC) [Ratio] 18.1 % High 11.5 - 14.5 % [facility] Hematocrit (Bld) [Volume fraction] 27.2 % Low 41.0 - 52.0 % [facility] Hemoglobin (Bld) [Mass/Vol] 8.4 g/dL Low 13.5 - 17.5 g/dL [facility] Immature granulocytes (Bld) [#/Vol] 0.12 10*3/uL [facility] Immature granulocytes/100 WBC (Bld) 0.7 % 0.0 - 0.9 % [facility] Interpretation and review of laboratory results Abnormal [facility] Lymphocytes (Bld) [#/Vol] 1.68 10*3/uL [facility] Lymphocytes/100 WBC (Bld) 10.2 % 13.0 - 44.0 % [facility] MCH (RBC) [Entitic mass] 27.9 pg 26. 0 - 34.0 pg [facility] MCHC (RBC) [Mass/Vol] 30.9 g/dL Low 32.0 - 36.0 g/dL [facility] MCV (RBC) [Entitic vol] 90 fL 80 - 100 fL [facility] Monocytes (Bld) [#/Vol] 1.29 10*3/uL High [facility] Monocytes/100 WBC (Bld) 7.8 % 2.0 - 10.0 % [facility] Neutrophils (Bld) [#/Vol] 12.9 10*3/uL High [facility] Neutrophils/100 WBC (Bld) 78.5 % 40.0 - 80.0 % [facility] Nucleated RBC/100 WBC (Bld) [Ratio] 0 % [facility] Platelets (Bld) [#/Vol] 604 10*3/uL High [facility] RBC (Bld) [#/Vol] 3.01 10*6/uL [facility] WBC (Bld) [#/Vol] 16.5 10*3/uL High Unive [facility] Magnesiumon 10-20-2024 Magnesium [Mass/Vol] 2.13 mg/dL 1.60 - 2.40 mg/dL [facility] No Panel Informationon 10-20 Interpretation and review of laboratory results Normal [facility] Phosphoruson 10-20-2024 Phosphate [Mass/Vol] 3.2 mg/dL 2.5 - 4 .9 mg/dL [facility] Basic metabolic 2000 panelon 10-19-2024 Anion gap [Moles/Vol] 17 mmol/L 10 - 2 0 mmol/L [facility] Calcium [Mass/Vol] 10.2 mg/dL 8.6 - 10. 6 mg/dL [facility] Chloride [Moles/Vol] 102 mmol/L 98 - 10 7 mmol/L [facility] CO2 [Moles/Vol] 25 mmol/L 21 - 32 mmol/L [facility] Creatinine [Mass/Vol] 1.67 mg/dL High 0.50 - 1.30 mg/dL [facility] GFR/1.73 sq M.predicted among non-blacks MDRD (S/P/Bld) [Vol rate/Area] 49 mL/min/{1.73_m2} Low - PINF [facility] Glucose [Mass/Vol] 124 mg/dL High 74 - 99 mg/dL Uni [facility] Interpretation and review of laboratory results Abnormal [facility] Potassium [Moles/Vol] 4 mmol/L 3.5 - 5.3 mmol/L [facility] Sodium [Moles/Vol] 140 mmol/L 136 - 145 mmol/L [facility] Urea nitrogen [Mass/Vol] 15 mg/dL 6 - 23 mg/d L [facility] CBC W Auto Differential pane l (Bld)on 10-19-2024 Basophils (Bld) [#/Vol] 0.1 10*3/uL [facility] Basophils/100 WBC (Bld) 0.7 % 0.0 - 2.0 % [facility] Eosinophils (Bld) [#/Vol] 0.41 10*3/uL [facility] Eosinophils/100 WBC (Bld) 2.8 % 0.0 - 6.0 % [facility] Erythrocyte distribution width (RBC) [Ratio] 17.8 % High 11.5 - 14.5 % [facility] Hematocrit (Bld) [Volume fraction] 25.9 % Low 41.0 - 52.0 % [facility] Hemoglobin (Bld) [Mass/Vol] 8 g/dL Low 13.5 - 17.5 g/dL [facility] Immature granulocytes (Bld) [#/Vol] 0.12 10*3/uL [facility] Immature granulocytes/100 WBC (Bld) 0.8 % 0.0 - 0.9 % [facility] Interpretation and review of laboratory results Abnormal [facility] Lymphocytes (Bld) [#/Vol] 2.16 10*3/uL [facility] Lymphocytes/100 WBC (Bld) 14.6 % 13.0 - 44.0 % [facility] MCH (RBC) [Entitic mass] 27.5 pg 26. 0 - 34.0 pg [facility] MCHC (RBC) [Mass/Vol] 30.9 g/dL Low 32.0 - 36.0 g/dL [facility] MCV (RBC) [Entitic vol] 89 fL 80 - 100 fL [facility] Monocytes (Bld) [#/Vol] 1.23 10*3/uL High [facility] Monocytes/100 WBC (Bld) 8.3 % 2.0 - 10.0 % [facility] Neutrophils (Bld) [#/Vol] 10.82 10*3/uL [facility] Neutrophils/100 WBC (Bld) 72.8 % 40.0 - 80.0 % [facility] Nucleated RBC/100 WBC (Bld) [Ratio] 0 % [facility] Platelets (Bld) [#/Vol] 609 10*3/uL High [facility] RBC (Bld) [#/Vol] 2.91 10*6/uL Low Unive [facility] WBC (Bld) [#/Vol] 14.8 10*3/uL High Unive [facility] Comprehensive metabolic 2000 panelon 10-19-2024 Albumin BCP dye [Mass/Vol] 3.4 g/dL 3.4 - 5.0 g/dL [facility] ALP [Catalytic activity/Vol] 76 U/L 33 - 120 U/L [facility] ALT With P-5'-P [Catalytic activity/Vol] 28 U/L 10 - 52 U/L [facility] Anion gap [Moles/Vol] 11 mmol/L 10 - 2 0 mmol/L [facility] AST With P-5'-P [Catalytic activity/Vol] 25 U/L 9 - 39 U/L [facility] Bilirubin [Mass/Vol] 0.2 mg/dL 0.0 - 1 .2 mg/dL [facility] Calcium [Mass/Vol] 10.2 mg/dL 8.6 - 10. 6 mg/dL [facility] Chloride [Moles/Vol] 103 mmol/L 98 - 10 7 mmol/L [facility] CO2 [Moles/Vol] 29 mmol/L 21 - 32 mmol/L [facility] Creatinine [Mass/Vol] 1.55 mg/dL High 0.50 - 1.30 mg/dL [facility] GFR/1.73 sq M.predicted among non-blacks MDRD (S/P/Bld) [Vol rate/Area] 54 mL/min/{1.73_m2} Low - PINF [facility] Glucose [Mass/Vol] 98 mg/dL 74 - 99 mg/dL [facility] Interpretation and review of laboratory results Abnormal [facility] Potassium [Moles/Vol] 4.3 mmol/L 3.5 - 5.3 mmol/L [facility] Protein [Mass/Vol] 7.2 g/dL 6.4 - 8.2 g/dL [facility] Sodium [Moles/Vol] 139 mmol/L 136 - 145 mmol/L [facility] Urea nitrogen [Mass/Vol] 16 mg/dL 6 - 23 mg/d L [facility] Magnesiumon 10-19-2024 Magnesium [Mass/Vol] 2.25 mg/dL 1.60 - 2.40 mg/dL [facility] Magnesium [Mass/Vol] 2.03 mg/dL 1.60 - 2.40 mg/dL [facility] Magnesium [Mass/Vol]on 10-19 Interpretation and review of laboratory results Normal [facility] No Panel Informationon 10-19 Interpretation and review of laboratory results Normal [facility] Phosphate [Mass/Vol]on 10-19 Interpretation and review of laboratory results Normal [facility] Phosphoruson 10-19-2024 Phosphate [Mass/Vol] 3.4 mg/dL 2.5 - 4 .9 mg/dL [facility] Phosphate [Mass/Vol] 3.8 mg/dL 2.5 - 4 .9 mg/dL [facility] Vancomycinon 10-19-2024 Vancomycin [Mass/Vol] 16.6 ug/mL 5.0 - 20.0 ug/mL [facility] Vancomycin [Mass/Vol]on Interpretation and review of laboratory results Normal [facility] Bacteria identified Cx Nom ( Bld)Ordered By: Mary Milton on 10-18-2024 Bacteria identified Aer cx Nom (Bld) Positive [facility] Interpretation and review of laboratory results Abnormal [facility] Microscopic observation Gram stain Nom (Unsp spec) Positive Critically abnormal [facility] Blood CultureOrdered By: Bia Milton on 10-18-2024 Bacteria identified Cx Nom (Bld) Marta oliveiramohindera Abnormal [facility] CBC W Auto Differential pane l (Bld)on 10-18-2024 Basophils (Bld) [#/Vol] 0.09 10*3/uL [facility] Basophils/100 WBC (Bld) 0.6 % 0.0 - 2.0 % [facility] Eosinophils (Bld) [#/Vol] 0.35 10*3/uL [facility] Eosinophils/100 WBC (Bld) 2.2 % 0.0 - 6.0 % [facility] Erythrocyte distribution width (RBC) [Ratio] 17.8 % High 11.5 - 14.5 % [facility] Hematocrit (Bld) [Volume fraction] 27.3 % Low 41.0 - 52.0 % [facility] Hemoglobin (Bld) [Mass/Vol] 8.4 g/dL Low 13.5 - 17.5 g/dL [facility] Immature granulocytes (Bld) [#/Vol] 0.17 10*3/uL [facility] Immature granulocytes/100 WBC (Bld) 1.1 % High 0.0 - 0.9 % [facility] Interpretation and review of laboratory results Abnormal [facility] Lymphocytes (Bld) [#/Vol] 2.56 10*3/uL [facility] Lymphocytes/100 WBC (Bld) 16.4 % 13.0 - 44.0 % [facility] MCH (RBC) [Entitic mass] 27.8 pg 26. 0 - 34.0 pg [facility] MCHC (RBC) [Mass/Vol] 30.8 g/dL Low 32.0 - 36.0 g/dL [facility] MCV (RBC) [Entitic vol] 90 fL 80 - 100 fL [facility] Monocytes (Bld) [#/Vol] 1.3 10*3/uL High [facility] Monocytes/100 WBC (Bld) 8.3 % 2.0 - 10.0 % [facility] Neutrophils (Bld) [#/Vol] 11.1 10*3/uL [facility] Neutrophils/100 WBC (Bld) 71.4 % 40.0 - 80.0 % [facility] Nucleated RBC/100 WBC (Bld) [Ratio] 0 % [facility] Platelets (Bld) [#/Vol] 605 10*3/uL High [facility] RBC (Bld) [#/Vol] 3.02 10*6/uL Low [facility] WBC (Bld) [#/Vol] 15.6 10*3/uL [facility] Comprehensive metabolic 2000 panelon 10-18-2024 Albumin BCP dye [Mass/Vol] 3.4 g/dL 3.4 - 5.0 g/dL [facility] ALP [Catalytic activity/Vol] 70 U/L 33 - 120 U/L [facility] ALT With P-5'-P [Catalytic activity/Vol] 17 U/L 10 - 52 U/L [facility] Anion gap [Moles/Vol] 15 mmol/L 10 - 2 0 mmol/L [facility] AST With P-5'-P [Catalytic activity/Vol] 18 U/L 9 - 39 U/L [facility] Bilirubin [Mass/Vol] 0.2 mg/dL 0.0 - 1 .2 mg/dL [facility] Calcium [Mass/Vol] 10.1 mg/dL 8.6 - 10. 6 mg/dL [facility] Chloride [Moles/Vol] 101 mmol/L 98 - 10 7 mmol/L [facility] CO2 [Moles/Vol] 27 mmol/L 21 - 32 mmol/L [facility] Creatinine [Mass/Vol] 1.72 mg/dL High 0.50 - 1.30 mg/dL [facility] GFR/1.73 sq M.predicted among non-blacks MDRD (S/P/Bld) [Vol rate/Area] 48 mL/min/{1.73_m2} Low - PINF [facility] Glucose [Mass/Vol] 97 mg/dL 74 - 99 mg/dL [facility] Interpretation and review of laboratory results Abnormal [facility] Potassium [Moles/Vol] 4 mmol/L 3.5 - 5.3 mmol/L [facility] Protein [Mass/Vol] 7.1 g/dL 6.4 - 8.2 g/dL [facility] Sodium [Moles/Vol] 139 mmol/L 136 - 145 mmol/L [facility] Urea nitrogen [Mass/Vol] 17 mg/dL 6 - 23 mg/d L [facility] Magnesiumon 10-18-2024 Magnesium [Mass/Vol] 2.13 mg/dL 1.60 - 2.40 mg/dL [facility] No Panel Informationon 10-18 [facility] Interpretation and review of laboratory results Normal [facility] Phosphoruson 10-18-2024 Phosphate [Mass/Vol] 3.2 mg/dL 2.5 - 4 .9 mg/dL [facility] Bacteria identified Cx Nom ( Bld)on 10-17-2024 Interpretation and review of laboratory results Normal [facility] Bacteria identified Cx Nom ( Unsp spec)Ordered By: Mari Monique on 10-17-2024 Beta lactamase organism identified Nom (Isol) Positive [facility] Microscopic observation Gram stain Nom (Unsp spec) No polymorphonuclear leukocytes seen [facility] Microscopic observation Gram stain Nom (Unsp spec) No organisms seen [facility] CBC W Auto Differential pane l (Bld)on 10-17-2024 Basophils (Bld) [#/Vol] 0.09 10*3/uL [facility] Basophils/100 WBC (Bld) 0.5 % 0.0 - 2.0 % [facility] Eosinophils (Bld) [#/Vol] 0.27 10*3/uL [facility] Eosinophils/100 WBC (Bld) 1.6 % 0.0 - 6.0 % [facility] Erythrocyte distribution width (RBC) [Ratio] 16.9 % High 11.5 - 14.5 % [facility] Hematocrit (Bld) [Volume fraction] 25.1 % Low 41.0 - 52.0 % [facility] Hemoglobin (Bld) [Mass/Vol] 8.5 g/dL Low 13.5 - 17.5 g/dL [facility] Immature granulocytes (Bld) [#/Vol] 0.13 10*3/uL [facility] Immature granulocytes/100 WBC (Bld) 0.8 % 0.0 - 0.9 % [facility] Interpretation and review of laboratory results Abnormal [facility] Lymphocytes (Bld) [#/Vol] 2.37 10*3/uL [facility] Lymphocytes/100 WBC (Bld) 14.2 % 13.0 - 44.0 % [facility] MCH (RBC) [Entitic mass] 28.1 pg 26. 0 - 34.0 pg [facility] MCHC (RBC) [Mass/Vol] 33.9 g/dL 32.0 - 36.0 g/dL [facility] MCV (RBC) [Entitic vol] 83 fL 80 - 100 fL [facility] Monocytes (Bld) [#/Vol] 1.31 10*3/uL High [facility] Monocytes/100 WBC (Bld) 7.8 % 2.0 - 10.0 % [facility] Neutrophils (Bld) [#/Vol] 12.54 10*3/uL [facility] Neutrophils/100 WBC (Bld) 75.1 % 40.0 - 80.0 % [facility] Nucleated RBC/100 WBC (Bld) [Ratio] 0 % [facility] Platelets (Bld) [#/Vol] 590 10*3/uL High [facility] RBC (Bld) [#/Vol] 3.02 10*6/uL Low Unive [facility] WBC (Bld) [#/Vol] 16.7 10*3/uL [facility] Comprehensive metabolic 2000 panelon 10-17-2024 Albumin BCP dye [Mass/Vol] 3.4 g/dL 3.4 - 5.0 g/dL [facility] ALP [Catalytic activity/Vol] 62 U/L 33 - 120 U/L [facility] ALT With P-5'-P [Catalytic activity/Vol] 11 U/L 10 - 52 U/L [facility] Anion gap [Moles/Vol] 16 mmol/L 10 - 2 0 mmol/L [facility] AST With P-5'-P [Catalytic activity/Vol] 35 U/L 9 - 39 U/L [facility] Bilirubin [Mass/Vol] 0.3 mg/dL 0.0 - 1 .2 mg/dL [facility] Calcium [Mass/Vol] 10.2 mg/dL 8.6 - 10. 6 mg/dL [facility] Chloride [Moles/Vol] 103 mmol/L 98 - 10 7 mmol/L [facility] CO2 [Moles/Vol] 25 mmol/L 21 - 32 mmol/L [facility] Creatinine [Mass/Vol] 1.62 mg/dL High 0.50 - 1.30 mg/dL [facility] GFR/1.73 sq M.predicted among non-blacks MDRD (S/P/Bld) [Vol rate/Area] 51 mL/min/{1.73_m2} Low - PINF [facility] Glucose [Mass/Vol] 91 mg/dL 74 - 99 mg/dL [facility] Potassium [Moles/Vol] 5.6 mmol/L High 3.5 - 5.3 mmol/L [facility] Protein [Mass/Vol] 7.3 g/dL 6.4 - 8.2 g/dL [facility] Sodium [Moles/Vol] 138 mmol/L 136 - 145 mmol/L [facility] Urea nitrogen [Mass/Vol] 14 mg/dL 6 - 23 mg/d L [facility] Laboratory - Microbiology an d Antimicrobial susceptibilityon 10-17-2024 Bacteria identified Cx Nom (Bld) No growth at 4 days - FINAL REPORT [facility] Magnesiumon 10-17-2024 Magnesium [Mass/Vol] 2.25 mg/dL 1.60 - 2.40 mg/dL [facility] Magnesium [Mass/Vol] 2.52 mg/dL High 1.60 - 2.40 mg/dL [facility] Magnesium [Mass/Vol]on 10-17 Interpretation and review of laboratory results Normal [facility] No Panel Informationon 10-17 [facility] Interpretation and review of laboratory results Normal [facility] Interpretation and review of laboratory results Abnormal [facility] Phosphoruson 10-17-2024 Phosphate [Mass/Vol] 4.1 mg/dL 2.5 - 4 .9 mg/dL [facility] Renal function 2000 panelon 10-17-2024 Albumin BCP dye [Mass/Vol] 3.7 g/dL 3.4 - 5.0 g/dL [facility] Anion gap [Moles/Vol] 14 mmol/L 10 - 2 0 mmol/L [facility] Calcium [Mass/Vol] 10.4 mg/dL 8.6 - 10. 6 mg/dL [facility] Chloride [Moles/Vol] 99 mmol/L 98 - 10 7 mmol/L [facility] CO2 [Moles/Vol] 27 mmol/L 21 - 32 mmol/L [facility] Creatinine [Mass/Vol] 1.62 mg/dL High 0.50 - 1.30 mg/dL [facility] GFR/1.73 sq M.predicted among non-blacks MDRD (S/P/Bld) [Vol rate/Area] 51 mL/min/{1.73_m2} Low - PINF [facility] Glucose [Mass/Vol] 98 mg/dL 74 - 99 mg/dL [facility] Interpretation and review of laboratory results Abnormal [facility] Phosphate [Mass/Vol] 3.7 mg/dL 2.5 - 4 .9 mg/dL [facility] Potassium [Moles/Vol] 4.3 mmol/L 3.5 - 5.3 mmol/L [facility] Sodium [Moles/Vol] 136 mmol/L 136 - 145 mmol/L [facility] Urea nitrogen [Mass/Vol] 17 mg/dL 6 - 23 mg/d L [facility] Tissue/Wound Culture/SmearOr dered By: Mari Monique on 10-17-2024 Bacteria identified Cx Nom (Unsp spec) (1+) Rare Mixed Anaerobic Bacteria [facility] Bacteria identified Cx Nom (Unsp spec) Negative [facility] Vancomycinon 10-17-2024 Vancomycin [Mass/Vol] 16.8 ug/mL 5.0 - 20.0 ug/mL [facility] Vancomycin [Mass/Vol]on 09-20 [facility] Blood type and Indirect anti body screen panel (Bld)on 10-16-2024 ABO group Nom (Bld) [facility] Blood group antibody screen Ql Negative [facility] D Ag Ql (Bld) Positive [facility] CBC W Auto Differential pane l (Bld)on 10-16-2024 Basophils (Bld) [#/Vol] 0.1 10*3/uL [facility] Basophils/100 WBC (Bld) 0.7 % 0.0 - 2.0 % [facility] Eosinophils (Bld) [#/Vol] 0.41 10*3/uL [facility] Eosinophils/100 WBC (Bld) 2.8 % 0.0 - 6.0 % [facility] Erythrocyte distribution width (RBC) [Ratio] 16.9 % High 11.5 - 14.5 % [facility] Hematocrit (Bld) [Volume fraction] 27.8 % Low 41.0 - 52.0 % [facility] Hemoglobin (Bld) [Mass/Vol] 8.9 g/dL Low 13.5 - 17.5 g/dL [facility] Immature granulocytes (Bld) [#/Vol] 0.17 10*3/uL [facility] Immature granulocytes/100 WBC (Bld) 1.2 % High 0.0 - 0.9 % [facility] Interpretation and review of laboratory results Abnormal [facility] Lymphocytes (Bld) [#/Vol] 2.54 10*3/uL [facility] Lymphocytes/100 WBC (Bld) 17.6 % 13.0 - 44.0 % [facility] MCH (RBC) [Entitic mass] 27.8 pg 26. 0 - 34.0 pg [facility] MCHC (RBC) [Mass/Vol] 32 g/dL 32.0 - 36.0 g/dL [facility] MCV (RBC) [Entitic vol] 87 fL 80 - 100 fL [facility] Monocytes (Bld) [#/Vol] 1.08 10*3/uL High [facility] Monocytes/100 WBC (Bld) 7.5 % 2.0 - 10.0 % [facility] Neutrophils (Bld) [#/Vol] 10.11 10*3/uL [facility] Neutrophils/100 WBC (Bld) 70.2 % 40.0 - 80.0 % [facility] Nucleated RBC/100 WBC (Bld) [Ratio] 0 % [facility] Platelets (Bld) [#/Vol] 633 10*3/uL High [facility] RBC (Bld) [#/Vol] 3.2 10*6/uL Low [facility] WBC (Bld) [#/Vol] 14.4 10*3/uL [facility] Comprehensive metabolic 2000 panelon 10-16-2024 Albumin BCP dye [Mass/Vol] 3.4 g/dL 3.4 - 5.0 g/dL [facility] ALP [Catalytic activity/Vol] 60 U/L 33 - 120 U/L [facility] ALT With P-5'-P [Catalytic activity/Vol] 10 U/L 10 - 52 U/L [facility] Anion gap [Moles/Vol] 13 mmol/L 10 - 2 0 mmol/L [facility] AST With P-5'-P [Catalytic activity/Vol] 11 U/L 9 - 39 U/L [facility] Bilirubin [Mass/Vol] 0.2 mg/dL 0.0 - 1 .2 mg/dL [facility] Calcium [Mass/Vol] 10 mg/dL 8.6 - 10. 6 mg/dL [facility] Chloride [Moles/Vol] 103 mmol/L 98 - 10 7 mmol/L [facility] CO2 [Moles/Vol] 26 mmol/L 21 - 32 mmol/L [facility] Creatinine [Mass/Vol] 1.5 mg/dL High 0.50 - 1.30 mg/dL [facility] GFR/1.73 sq M.predicted among non-blacks MDRD (S/P/Bld) [Vol rate/Area] 56 mL/min/{1.73_m2} Low - PINF [facility] Glucose [Mass/Vol] 104 mg/dL High 74 - 99 mg/dL [facility] Interpretation and review of laboratory results Abnormal [facility] Potassium [Moles/Vol] 4.3 mmol/L 3.5 - 5.3 mmol/L [facility] Protein [Mass/Vol] 7.2 g/dL 6.4 - 8.2 g/dL [facility] Sodium [Moles/Vol] 138 mmol/L 136 - 145 mmol/L [facility] Urea nitrogen [Mass/Vol] 12 mg/dL 6 - 23 mg/d L [facility] Electrocardiogram, 12-lead P RN ACS symptomsOrdered By: Campos Villa on 10-16-2024 Atrial Rate 126 BPM [facility] Work Phone: [phone] P [place] 72 degrees [facility] Work Phone: [phone] P Offset 218 ms [facility] Work Phone: [phone] P Onset 153 ms [facility] Work Phone: [phone] NH Interval 144 ms [facility] Work Phone: [phone] Q Onset 225 ms [facility] Work Phone: [phone] QRS Count 21 beats [facility] Work Phone: [phone] QRS Duration 94 ms [facility] Work Phone: [phone] QT Interval 324 ms [facility] Work Phone: [phone] QTC Calculation(Bazett) 469 ms U [facility] Work Phone: [phone] QTC Fredericia 415 ms [facility] Work Phone: [phone] R [place] 49 degrees [facility] Work Phone: [phone] T [place] 101 degrees [facility] Work Phone: [phone] T Offset 387 ms [facility] Work Phone: [phone] Ventricular Rate 126 BPM [facility] Work Phone: [facility] Work Phone: Electrocardiogram, 12-lead P RN ACS symptomson 10-16-2024 [facility] Work Phone: Magnesiumon 10-16-2024 Magnesium [Mass/Vol] 2.16 mg/dL 1.60 - 2.40 mg/dL [facility] No Panel Informationon 10-16 Interpretation and review of laboratory results Normal [facility] PT and aPTT panel Coag (PPP) on 10-16-2024 aPTT Coag (PPP) [Time] 30 s [facility] INR Coag (PPP) [Relative time] 1 {INR} 0.9 - 1.1 [facility] Interpretation and review of laboratory results Normal [facility] PT Coag (PPP) [Time] 11.4 s [facility] Phosphoruson 10-16-2024 Phosphate [Mass/Vol] 3.2 mg/dL 2.5 - 4 .9 mg/dL [facility] CBC W Auto Differential pane l (Bld)on 10-15-2024 Basophils (Bld) [#/Vol] 0.1 10*3/uL [facility] Basophils/100 WBC (Bld) 0.8 % 0.0 - 2.0 % [facility] Eosinophils (Bld) [#/Vol] 0.4 10*3/uL [facility] Eosinophils/100 WBC (Bld) 3.1 % 0.0 - 6.0 % [facility] Erythrocyte distribution width (RBC) [Ratio] 17.1 % High 11.5 - 14.5 % [facility] Hematocrit (Bld) [Volume fraction] 29.1 % Low 41.0 - 52.0 % [facility] Hemoglobin (Bld) [Mass/Vol] 9.2 g/dL Low 13.5 - 17.5 g/dL [facility] Immature granulocytes (Bld) [#/Vol] 0.09 10*3/uL [facility] Immature granulocytes/100 WBC (Bld) 0.7 % 0.0 - 0.9 % [facility] Interpretation and review of laboratory results Abnormal [facility] Lymphocytes (Bld) [#/Vol] 2.77 10*3/uL [facility] Lymphocytes/100 WBC (Bld) 21.4 % 13.0 - 44.0 % [facility] MCH (RBC) [Entitic mass] 28.4 pg 26. 0 - 34.0 pg [facility] MCHC (RBC) [Mass/Vol] 31.6 g/dL Low 32.0 - 36.0 g/dL [facility] MCV (RBC) [Entitic vol] 90 fL 80 - 100 fL [facility] Monocytes (Bld) [#/Vol] 0.98 10*3/uL [facility] Monocytes/100 WBC (Bld) 7.6 % 2.0 - 10.0 % [facility] Neutrophils (Bld) [#/Vol] 8.58 10*3/uL High [facility] Neutrophils/100 WBC (Bld) 66.4 % 40.0 - 80.0 % [facility] Nucleated RBC/100 WBC (Bld) [Ratio] 0 % [facility] Platelets (Bld) [#/Vol] 635 10*3/uL High [facility] RBC (Bld) [#/Vol] 3.24 10*6/uL Low Unive [facility] WBC (Bld) [#/Vol] 12.9 10*3/uL [facility] Comprehensive metabolic 2000 panelon 10-15-2024 Albumin BCP dye [Mass/Vol] 3.3 g/dL Low 3.4 - 5.0 g/dL [facility] ALP [Catalytic activity/Vol] 60 U/L 33 - 120 U/L [facility] ALT With P-5'-P [Catalytic activity/Vol] 9 U/L Low 10 - 52 U/L [facility] Anion gap [Moles/Vol] 13 mmol/L 10 - 2 0 mmol/L [facility] AST With P-5'-P [Catalytic activity/Vol] 9 U/L 9 - 39 U/L [facility] Bilirubin [Mass/Vol] 0.2 mg/dL 0.0 - 1 .2 mg/dL [facility] Calcium [Mass/Vol] 9.5 mg/dL 8.6 - 10. 6 mg/dL [facility] Chloride [Moles/Vol] 102 mmol/L 98 - 10 7 mmol/L [facility] CO2 [Moles/Vol] 27 mmol/L 21 - 32 mmol/L [facility] Creatinine [Mass/Vol] 1.53 mg/dL High 0.50 - 1.30 mg/dL [facility] GFR/1.73 sq M.predicted among non-blacks MDRD (S/P/Bld) [Vol rate/Area] 55 mL/min/{1.73_m2} Low - PINF [facility] Glucose [Mass/Vol] 94 mg/dL 74 - 99 mg/dL [facility] Interpretation and review of laboratory results Abnormal [facility] Potassium [Moles/Vol] 4 mmol/L 3.5 - 5.3 mmol/L [facility] Protein [Mass/Vol] 6.9 g/dL 6.4 - 8.2 g/dL [facility] Sodium [Moles/Vol] 138 mmol/L 136 - 145 mmol/L [facility] Urea nitrogen [Mass/Vol] 10 mg/dL 6 - 23 mg/d L [facility] Magnesiumon 10-15-2024 Magnesium [Mass/Vol] 2.11 mg/dL 1.60 - 2.40 mg/dL [facility] No Panel Informationon 10-15 Interpretation and review of laboratory results Normal [facility] Phosphoruson 10-15-2024 Phosphate [Mass/Vol] 2.5 mg/dL 2.5 - 4 .9 mg/dL [facility] CBC W Auto Differential pane l (Bld)on 10-14-2024 Basophils (Bld) [#/Vol] 0.08 10*3/uL [facility] Basophils/100 WBC (Bld) 0.5 % 0.0 - 2.0 % [facility] Eosinophils (Bld) [#/Vol] 0.3 10*3/uL [facility] Eosinophils/100 WBC (Bld) 2 % 0.0 - 6.0 % [facility] Erythrocyte distribution width (RBC) [Ratio] 17.2 % High 11.5 - 14.5 % [facility] Hematocrit (Bld) [Volume fraction] 26.6 % Low 41.0 - 52.0 % [facility] Hemoglobin (Bld) [Mass/Vol] 8.1 g/dL Low 13.5 - 17.5 g/dL [facility] Immature granulocytes (Bld) [#/Vol] 0.13 10*3/uL [facility] Immature granulocytes/100 WBC (Bld) 0.9 % 0.0 - 0.9 % [facility] Interpretation and review of laboratory results Abnormal [facility] Lymphocytes (Bld) [#/Vol] 1.96 10*3/uL [facility] Lymphocytes/100 WBC (Bld) 13.1 % 13.0 - 44.0 % [facility] MCH (RBC) [Entitic mass] 27.6 pg 26. 0 - 34.0 pg [facility] MCHC (RBC) [Mass/Vol] 30.5 g/dL Low 32.0 - 36.0 g/dL [facility] MCV (RBC) [Entitic vol] 91 fL 80 - 100 fL [facility] Monocytes (Bld) [#/Vol] 0.84 10*3/uL [facility] Monocytes/100 WBC (Bld) 5.6 % 2.0 - 10.0 % [facility] Neutrophils (Bld) [#/Vol] 11.69 10*3/uL High [facility] Neutrophils/100 WBC (Bld) 77.9 % 40.0 - 80.0 % [facility] Nucleated RBC/100 WBC (Bld) [Ratio] 0 % [facility] Platelets (Bld) [#/Vol] 561 10*3/uL High [facility] RBC (Bld) [#/Vol] 2.94 10*6/uL Low [facility] WBC (Bld) [#/Vol] 15 10*3/uL [facility] Comprehensive metabolic 2000 panelon 10-14-2024 Albumin BCP dye [Mass/Vol] 3.1 g/dL Low 3.4 - 5.0 g/dL [facility] ALP [Catalytic activity/Vol] 60 U/L 33 - 120 U/L [facility] ALT With P-5'-P [Catalytic activity/Vol] 9 U/L Low 10 - 52 U/L [facility] Anion gap [Moles/Vol] 13 mmol/L 10 - 2 0 mmol/L [facility] AST With P-5'-P [Catalytic activity/Vol] 6 U/L Low 9 - 39 U/L [facility] Bilirubin [Mass/Vol] 0.2 mg/dL 0.0 - 1 .2 mg/dL [facility] Calcium [Mass/Vol] 9 mg/dL 8.6 - 10. 6 mg/dL [facility] Chloride [Moles/Vol] 102 mmol/L 98 - 10 7 mmol/L [facility] CO2 [Moles/Vol] 26 mmol/L 21 - 32 mmol/L [facility] Creatinine [Mass/Vol] 1.44 mg/dL High 0.50 - 1.30 mg/dL [facility] GFR/1.73 sq M.predicted among non-blacks MDRD (S/P/Bld) [Vol rate/Area] 59 mL/min/{1.73_m2} Low - PINF [facility] Glucose [Mass/Vol] 163 mg/dL High 74 - 99 mg/dL [facility] Interpretation and review of laboratory results Abnormal [facility] Potassium [Moles/Vol] 3.9 mmol/L 3.5 - 5.3 mmol/L [facility] Protein [Mass/Vol] 6.4 g/dL 6.4 - 8.2 g/dL [facility] Sodium [Moles/Vol] 137 mmol/L 136 - 145 mmol/L [facility] Urea nitrogen [Mass/Vol] 15 mg/dL 6 - 23 mg/d L [facility] Extra Urine Rhodes Tubeon 09-19 Extra Tube Hold for add-ons. [facility] Lactateon 10-14-2024 Lactate [Moles/Vol] 1.2 mmol/L 0.4 - 2. 0 mmol/L [facility] Lactate [Moles/Vol] 2.3 mmol/L High 0.4 - 2. 0 mmol/L [facility] Lactate [Moles/Vol]on 2024 Interpretation and review of laboratory results Normal [facility] Interpretation and review of laboratory results Abnormal [facility] No Panel Informationon 10-14 [facility] Vancomycinon 10-14-2024 Vancomycin [Mass/Vol] 14.7 ug/mL 5.0 - 20.0 ug/mL [facility] Vancomycin [Mass/Vol]on 09-19 Interpretation and review of laboratory results Normal [facility] Bacteria identified Cx Nom ( Unsp spec)Ordered By: Alejandra Andrade on 10-13-2024 Beta lactamase organism identified Nom (Isol) Positive [facility] Interpretation and review of laboratory results Abnormal [facility] Microscopic observation Gram stain Nom (Unsp spec) No polymorphonuclear leukocytes seen Abnormal [facility] Microscopic observation Gram stain Nom (Unsp spec) Positive Abnormal [facility] CBC W Auto Differential pane l (Bld)on 10-13-2024 Basophils (Bld) [#/Vol] 0.06 10*3/uL [facility] Basophils/100 WBC (Bld) 0.2 % 0.0 - 2.0 % [facility] Eosinophils (Bld) [#/Vol] 0.18 10*3/uL [facility] Eosinophils/100 WBC (Bld) 0.7 % 0.0 - 6.0 % [facility] Erythrocyte distribution width (RBC) [Ratio] 16.9 % High 11.5 - 14.5 % [facility] Hematocrit (Bld) [Volume fraction] 25.6 % Low 41.0 - 52.0 % [facility] Hemoglobin (Bld) [Mass/Vol] 8.3 g/dL Low 13.5 - 17.5 g/dL [facility] Immature granulocytes (Bld) [#/Vol] 0.15 10*3/uL [facility] Immature granulocytes/100 WBC (Bld) 0.6 % 0.0 - 0.9 % [facility] Interpretation and review of laboratory results Abnormal [facility] Lymphocytes (Bld) [#/Vol] 2.13 10*3/uL [facility] Lymphocytes/100 WBC (Bld) 8.9 % 13.0 - 44.0 % [facility] MCH (RBC) [Entitic mass] 28.4 pg 26. 0 - 34.0 pg [facility] MCHC (RBC) [Mass/Vol] 32.4 g/dL 32.0 - 36.0 g/dL [facility] MCV (RBC) [Entitic vol] 88 fL 80 - 100 fL [facility] Monocytes (Bld) [#/Vol] 1.37 10*3/uL High [facility] Monocytes/100 WBC (Bld) 5.7 % 2.0 - 10.0 % [facility] Neutrophils (Bld) [#/Vol] 20.15 10*3/uL High [facility] Neutrophils/100 WBC (Bld) 83.9 % 40.0 - 80.0 % [facility] Nucleated RBC/100 WBC (Bld) [Ratio] 0 % [facility] Platelets (Bld) [#/Vol] 579 10*3/uL High [facility] RBC (Bld) [#/Vol] 2.92 10*6/uL Low [facility] WBC (Bld) [#/Vol] 24 10*3/uL High [facility] Erythrocyte distribution width (RBC) [Ratio] 17 % High 11.5 - 14.5 % [facility] Hematocrit (Bld) [Volume fraction] 34.1 % Low 41.0 - 52.0 % [facility] Hemoglobin (Bld) [Mass/Vol] 10.5 g/dL Low 13.5 - 17.5 g/dL [facility] Immature granulocytes (Bld) [#/Vol] 0.32 10*3/uL [facility] Immature granulocytes/100 WBC (Bld) 1.1 % High 0.0 - 0.9 % [facility] MCH (RBC) [Entitic mass] 27.9 pg 26. 0 - 34.0 pg [facility] MCHC (RBC) [Mass/Vol] 30.8 g/dL Low 32.0 - 36.0 g/dL [facility] MCV (RBC) [Entitic vol] 91 fL 80 - 100 fL [facility] Nucleated RBC/100 WBC (Bld) [Ratio] 0 % [facility] Platelets (Bld) [#/Vol] 755 10*3/uL High [facility] RBC (Bld) [#/Vol] 3.76 10*6/uL Low Unive [facility] WBC (Bld) [#/Vol] 30.1 10*3/uL High Unive [facility] Comprehensive metabolic 2000 panelon 10-13-2024 Albumin BCP dye [Mass/Vol] 3.9 g/dL 3.4 - 5.0 g/dL [facility] ALP [Catalytic activity/Vol] 76 U/L 33 - 120 U/L [facility] ALT With P-5'-P [Catalytic activity/Vol] 9 U/L Low 10 - 52 U/L [facility] Anion gap [Moles/Vol] 18 mmol/L 10 - 2 0 mmol/L [facility] AST With P-5'-P [Catalytic activity/Vol] 10 U/L 9 - 39 U/L [facility] Bilirubin [Mass/Vol] 0.4 mg/dL 0.0 - 1 .2 mg/dL [facility] Calcium [Mass/Vol] 10.4 mg/dL 8.6 - 10. 6 mg/dL [facility] Chloride [Moles/Vol] 100 mmol/L 98 - 10 7 mmol/L [facility] CO2 [Moles/Vol] 26 mmol/L 21 - 32 mmol/L [facility] Creatinine [Mass/Vol] 1.84 mg/dL High 0.50 - 1.30 mg/dL [facility] GFR/1.73 sq M.predicted among non-blacks MDRD (S/P/Bld) [Vol rate/Area] 44 mL/min/{1.73_m2} Low - PINF [facility] Glucose [Mass/Vol] 144 mg/dL High 74 - 99 mg/dL [facility] Interpretation and review of laboratory results Abnormal [facility] Potassium [Moles/Vol] 4.5 mmol/L 3.5 - 5.3 mmol/L [facility] Protein [Mass/Vol] 7.5 g/dL 6.4 - 8.2 g/dL [facility] Sodium [Moles/Vol] 139 mmol/L 136 - 145 mmol/L [facility] Urea nitrogen [Mass/Vol] 19 mg/dL 6 - 23 mg/d L [facility] ECG 12-LEADon 10-13-2024 ECG 12-LEAD Ventricular Rate 126 Atrial Rate 126 P-R Interval 144 QRS Duration 94 Q-T Interval 324 QTC Calculation(Bazett) 469 P [place] 72 R [place] 49 T [place] 101 QRS Count 21 Q Onset 225 P Onset 153 P Offset 218 T Offset 387 QTC Fredericia [address] & T wave abnormality, consider lateral ischemia Abnormal ECG Confirmed by Campos Villa ([id number]) on 10/16/2024 6:09:33 PM Normal [facility] Gas and Carbon monoxide and Electrolytes panel (BldA)on 10-13-2024 Anion gap 4 (BldA) [Moles/Vol] 11 [facility] Base excess Calc (Bld) [Moles/Vol] -1 mmol/L -2.0 - 3.0 mmol/L [facility] Calcium.ionized (BldA) [Moles/Vol] 1.3 mmol/L 1.10 - 1.33 mmol/L [facility] Chloride (BldA) [Moles/Vol] 104 mmol/L 98 - 107 mmol/L [facility] CO2 (Bld) [Partial pressure] 42 mm[Hg] [facility] Glucose [Mass/Vol] 152 mg/dL High 74 - 99 mg/dL [facility] HCO3 (Bld) [Moles/Vol] 24.3 mmol/L 22.0 - 26.0 mmol/L [facility] Hematocrit Est (Bld) [Volume fraction] 29 % Low 41.0 - 52.0 % [facility] Hemoglobin (Bld) [Mass/Vol] 9.5 g/dL Low 13.5 - 17.5 g/dL [facility] Inhaled oxygen concentration 28 % [facility] Interpretation and review of laboratory results Abnormal [facility] Lactate (BldA) [Moles/Vol] 0.9 mmol/L 0.4 - 2.0 mmol/L [facility] Oxygen (Bld) [Partial pressure] 73 mm[Hg] Low [facility] Oxyhemoglobin (BldA) [Mass fraction] 94.4 % 94.0 - 98.0 % [facility] pH (Bld) 7.37 [pH] Low 7.38 - 7.42 pH [facility] Potassium (BldA) [Moles/Vol] 4.1 mmol/L 3.5 - 5.3 mmol/L [facility] Sodium (BldA) [Moles/Vol] 135 mmol/L Low 136 - 145 mmol/L [facility] Gas panel (BldV)on Anion gap 4 (BldV) [Moles/Vol] 10 mmol/L 10.0 - 25.0 mmol/L [facility] Base excess Calc (BldV) [Moles/Vol] -0.4000 mmol/L -2.0 - 3.0 mmol/L [facility] Calcium.ionized (BldV) [Moles/Vol] 1.31 mmol/L 1.10 - 1.33 mmol/L [facility] Chloride (BldV) [Moles/Vol] 104 mmol/L 98 - 107 mmol/L [facility] CO2 (BldV) [Partial pressure] 51 mm[Hg] [facility] Glucose [Mass/Vol] 154 mg/dL High 74 - 99 mg/dL [facility] HCO3 (Bld) [Moles/Vol] 26.3 mmol/L High 22.0 - 26.0 mmol/L [facility] Hematocrit Est (Bld) [Volume fraction] 36 % Low 41.0 - 52.0 % [facility] Hemoglobin (Bld) [Mass/Vol] 12 g/dL Low 13.5 - 17.5 g/dL [facility] Inhaled oxygen concentration 28 % [facility] Interpretation and review of laboratory results Abnormal [facility] Lactate (BldV) [Moles/Vol] 2.2 mmol/L High 0.4 - 2.0 mmol/L [facility] Oxygen (BldV) [Partial pressure] 36 mm[Hg] [facility] Oxygen saturation in Venous blood 53 % 45 - 75 % [facility] Oxyhemoglobin (BldV) [Mass fraction] 52.4 % 45.0 - 75.0 % [facility] pH (BldV) 7.32 [pH] Low 7.33 - 7.43 pH [facility] Potassium (BldV) [Moles/Vol] 4.3 mmol/L 3.5 - 5.3 mmol/L [facility] Sodium (BldV) [Moles/Vol] 136 mmol/L 136 - 145 mmol/L [facility] Lactateon 10-13-2024 Lactate [Moles/Vol] 2.6 mmol/L High 0.4 - 2. 0 mmol/L [facility] Lactate [Moles/Vol] 1.8 mmol/L 0.4 - 2. 0 mmol/L [facility] Lactate [Moles/Vol]on 2024 Interpretation and review of laboratory results Abnormal [facility] Interpretation and review of laboratory results Normal [facility] Manual differential performe d Ql (Bld)on 10-13-2024 Band form neutrophils (Bld) [#/Vol] 4.67 10*3/uL High [facility] Band form neutrophils/100 WBC (Bld) 15.5 % 0.0 - 5.0 % [facility] Basophils (Bld) [#/Vol] 0 10*3/uL [facility] Basophils/100 WBC (Bld) 0 % 0.0 - 2.0 % [facility] Cells Counted Total (Bld) [#] 116 {cells} [facility] Eosinophils (Bld) [#/Vol] 0 10*3/uL [facility] Eosinophils/100 WBC (Bld) 0 % 0.0 - 6.0 % [facility] Lymphocytes (Bld) [#/Vol] 1.02 10*3/uL Low [facility] Lymphocytes/100 WBC (Bld) 3.4 % 13.0 - 44.0 % [facility] Monocytes (Bld) [#/Vol] 0.78 10*3/uL [facility] Monocytes/100 WBC (Bld) 2.6 % 2.0 - 10.0 % [facility] Myelocytes (Bld) [#/Vol] 0.27 10*3/uL [facility] Myelocytes/100 WBC (Bld) 0.9 % 0.0 - 0.0 % [facility] Neutrophils (Bld) [#/Vol] 27.25 10*3/uL [facility] Promyelocytes (Bld) [#/Vol] 0.27 10*3/uL [facility] Promyelocytes/100 WBC (Bld) 0.9 % 0.0 - 0.0 % [facility] RBC morphology finding Nom (Bld) No significant RBC morphology present [facility] Segmented neutrophils (Bld) [#/Vol] 22.58 10*3/uL [facility] Segmented neutrophils/100 WBC (Bld) 75 % 40.0 - 80.0 % [facility] Variant lymphocytes (Bld) [#/Vol] 0.51 10*3/uL [facility] Variant lymphocytes/100 WBC (Bld) 1.7 % 0.0 - 2.0 % [facility] Natriuretic peptide B [Mass/ Vol]on 10-13-2024 Interpretation and review of laboratory results Normal [facility] Natriuretic peptide B (Bld) [Mass/Vol] 6 pg/mL 0 - 99 pg/mL [facility] No Panel Informationon 10-13 Interpretation and review of laboratory results Abnormal [facility] Tissue/Wound Culture/SmearOr dered By: Alejandra Andrade on 10-13-2024 Bacteria identified Cx Nom (Unsp spec) (4+) Abundant Mixed Gram-Positive and Gram-Negative Bacteria [facility] Bacteria identified Cx Nom (Unsp spec) (4+) Abundant Mixed Anaerobic Bacteria [facility] Tropinin I.cardiac panel Hig h sensitivity methodon 10-13-2024 Interpretation and review of laboratory results Normal [facility] Troponin I, High Sensitivity on 10-13-2024 Tropinin I.cardiac panel High sensitivity method ng/L 0 - 53 ng/L [facility] Urinalysis complete W Reflex Culture panel (U)Ordered By: Vinita Arenas on 10-13-2024 Appearance (U) Clear Clear [facility] Bilirubin (U) [Mass/Vol] Negative NEGATIVE [facility] Color (U) Light-Yellow Light-Yellow, Yellow, Dark-Yellow [facility] Glucose Auto test strip (U) [Mass/Vol] Normal Normal mg/dL [facility] Interpretation and review of laboratory results Abnormal [facility] Ketones (U) [Mass/Vol] Negative NEGAT SULEMA mg/dL [facility] Leukocyte esterase Auto test strip Ql (U) Negative NEGATIVE [facility] Nitrite Auto test strip Ql (U) Negative NEGATIVE [facility] pH (U) 6.5 [pH] 5.0, 5.5, 6.0, 6.5, 7.0, 7.5, 8.0 [facility] Protein (U) [Mass/Vol] 10 (TRACE) NEGAT SULEMA, 10 (TRACE), 20 (TRACE) mg/dL [facility] RBC (U) [#/Vol] 0.03 (TRACE) Abnormal NEGATIVE [facility] Specific gravity (U) [Rel density] 1.023 1.005 - 1.035 [facility] Urobilinogen (U) [Mass/Vol] Normal Normal mg/dL [facility] Urinalysis complete W Reflex Culture panel (U)on 10-13-2024 Interpretation and review of laboratory results Normal [facility] Work Phone: RBC Auto (Urine sed) [#/Area] 3-5 NONE, 1-2, 3-5 /HPF [facility] Work Phone: WBC Auto (Urine sed) [#/Area] 1-5 1-5, NONE /HPF [facility] Work Phone: CBC W Auto Differential pane l (Bld)on 10-12-2024 Basophils (Bld) [#/Vol] 0.09 10*3/uL [facility] Basophils/100 WBC (Bld) 0.6 % 0.0 - 2.0 % [facility] Eosinophils (Bld) [#/Vol] 0.36 10*3/uL [facility] Eosinophils/100 WBC (Bld) 2.5 % 0.0 - 6.0 % [facility] Erythrocyte distribution width (RBC) [Ratio] 17.3 % High 11.5 - 14.5 % [facility] Hematocrit (Bld) [Volume fraction] 30.8 % Low 41.0 - 52.0 % [facility] Hemoglobin (Bld) [Mass/Vol] 9.5 g/dL Low 13.5 - 17.5 g/dL [facility] Immature granulocytes (Bld) [#/Vol] 0.15 10*3/uL [facility] Immature granulocytes/100 WBC (Bld) 1 % High 0.0 - 0.9 % [facility] Interpretation and review of laboratory results Abnormal [facility] Lymphocytes (Bld) [#/Vol] 2.52 10*3/uL [facility] Lymphocytes/100 WBC (Bld) 17.2 % 13.0 - 44.0 % [facility] MCH (RBC) [Entitic mass] 27.3 pg 26. 0 - 34.0 pg [facility] MCHC (RBC) [Mass/Vol] 30.8 g/dL Low 32.0 - 36.0 g/dL [facility] MCV (RBC) [Entitic vol] 89 fL 80 - 100 fL [facility] Monocytes (Bld) [#/Vol] 1.39 10*3/uL High [facility] Monocytes/100 WBC (Bld) 9.5 % 2.0 - 10.0 % [facility] Neutrophils (Bld) [#/Vol] 10.11 10*3/uL High [facility] Neutrophils/100 WBC (Bld) 69.2 % 40.0 - 80.0 % [facility] Nucleated RBC/100 WBC (Bld) [Ratio] 0 % [facility] Platelets (Bld) [#/Vol] 633 10*3/uL High [facility] RBC (Bld) [#/Vol] 3.48 10*6/uL Low Unive [facility] WBC (Bld) [#/Vol] 14.6 10*3/uL High [facility] Comprehensive metabolic 2000 panelon 10-12-2024 Albumin BCP dye [Mass/Vol] 3.5 g/dL 3.4 - 5.0 g/dL [facility] ALP [Catalytic activity/Vol] 66 U/L 33 - 120 U/L [facility] ALT With P-5'-P [Catalytic activity/Vol] 8 U/L Low 10 - 52 U/L [facility] Anion gap [Moles/Vol] 14 mmol/L 10 - 2 0 mmol/L [facility] AST With P-5'-P [Catalytic activity/Vol] 11 U/L 9 - 39 U/L [facility] Bilirubin [Mass/Vol] 0.3 mg/dL 0.0 - 1 .2 mg/dL [facility] Calcium [Mass/Vol] 10 mg/dL 8.6 - 10. 6 mg/dL [facility] Chloride [Moles/Vol] 101 mmol/L 98 - 10 7 mmol/L [facility] CO2 [Moles/Vol] 25 mmol/L 21 - 32 mmol/L [facility] Creatinine [Mass/Vol] 1.61 mg/dL High 0.50 - 1.30 mg/dL [facility] GFR/1.73 sq M.predicted among non-blacks MDRD (S/P/Bld) [Vol rate/Area] 51 mL/min/{1.73_m2} Low - PINF [facility] Glucose [Mass/Vol] 100 mg/dL High 74 - 99 mg/dL [facility] Interpretation and review of laboratory results Abnormal [facility] Potassium [Moles/Vol] 4 mmol/L 3.5 - 5.3 mmol/L [facility] Protein [Mass/Vol] 7.4 g/dL 6.4 - 8.2 g/dL [facility] Sodium [Moles/Vol] 136 mmol/L 136 - 145 mmol/L [facility] Urea nitrogen [Mass/Vol] 16 mg/dL 6 - 23 mg/d L [facility] No Panel Informationon 10-12 [facility] Vancomycinon 10-12-2024 Vancomycin [Mass/Vol] 13.6 ug/mL 5.0 - 20.0 ug/mL [facility] Vancomycin [Mass/Vol]on 09-19 Interpretation and review of laboratory results Normal [facility] Blood type and Indirect anti body screen panel (Bld)on 10-11-2024 ABO group Nom (Bld) [facility] Ql Negative [facility] D Ag Ql (Bld) Positive [facility] C-reactive proteinon 025 CRP [Mass/Vol] 7.72 mg/dL High NINF - 1.00 mg/dL [facility] CBC W Auto Differential pane l (Bld)on 10-11-2024 Basophils (Bld) [#/Vol] 0.06 10*3/uL [facility] Basophils/100 WBC (Bld) 0.4 % 0.0 - 2.0 % [facility] Eosinophils (Bld) [#/Vol] 0.39 10*3/uL [facility] Eosinophils/100 WBC (Bld) 2.7 % 0.0 - 6.0 % [facility] Erythrocyte distribution width (RBC) [Ratio] 17.2 % High 11.5 - 14.5 % [facility] Hematocrit (Bld) [Volume fraction] 28.7 % Low 41.0 - 52.0 % [facility] Hemoglobin (Bld) [Mass/Vol] 9.6 g/dL Low 13.5 - 17.5 g/dL [facility] Immature granulocytes (Bld) [#/Vol] 0.17 10*3/uL [facility] Immature granulocytes/100 WBC (Bld) 1.2 % High 0.0 - 0.9 % [facility] Interpretation and review of laboratory results Abnormal [facility] Lymphocytes (Bld) [#/Vol] 3.37 10*3/uL [facility] Lymphocytes/100 WBC (Bld) 23.6 % 13.0 - 44.0 % [facility] MCH (RBC) [Entitic mass] 28.2 pg 26. 0 - 34.0 pg [facility] MCHC (RBC) [Mass/Vol] 33.4 g/dL 32.0 - 36.0 g/dL [facility] MCV (RBC) [Entitic vol] 84 fL 80 - 100 fL [facility] Monocytes (Bld) [#/Vol] 1.62 10*3/uL High [facility] Monocytes/100 WBC (Bld) 11.3 % 2.0 - 10.0 % [facility] Neutrophils (Bld) [#/Vol] 8.67 10*3/uL High [facility] Neutrophils/100 WBC (Bld) 60.8 % 40.0 - 80.0 % [facility] Nucleated RBC/100 WBC (Bld) [Ratio] 0 % [facility] Platelets (Bld) [#/Vol] 650 10*3/uL High [facility] RBC (Bld) [#/Vol] 3.4 10*6/uL Low Univer [facility] WBC (Bld) [#/Vol] 14.3 10*3/uL High [facility] CRP [Mass/Vol]on 10-11-2024 Interpretation and review of laboratory results Abnormal [facility] ESR Westergren method (Bld) [Velocity]on 10-11-2024 ESR (Bld) [Velocity] mm/h High 0 - 20 mm/h [facility] Interpretation and review of laboratory results Abnormal [facility] Extra Urine Rhodes Tubeon 09-19 Extra Tube Hold for add-ons. [facility] Ferritinon 10-11-2024 Ferritin [Mass/Vol] 259 ng/mL 20 - 300 ng/mL [facility] Ferritin [Mass/Vol]on 2024 Interpretation and review of laboratory results Normal [facility] Iron and Iron binding capaci ty panelon 10-11-2024 Interpretation and review of laboratory results Abnormal [facility] Iron [Mass/Vol] 24 ug/dL Low 35 - 150 ug/dL [facility] Iron binding capacity [Mass/Vol] 218 ug/dL Low 240 - 445 ug/dL [facility] Iron binding capacity.unsaturated [Mass/Vol] 194 ug/dL 110 - 370 ug/dL [facility] Iron saturation [Mass fraction] 11 % Low 25 - 45 % [facility] Magnesiumon 10-11-2024 Magnesium [Mass/Vol] 2.19 mg/dL 1.60 - 2.40 mg/dL [facility] Magnesium [Mass/Vol]on 10-11 Interpretation and review of laboratory results Normal [facility] No Panel Informationon 10-11 [facility] Renal function 2000 panelon 10-11-2024 Albumin BCP dye [Mass/Vol] 3.3 g/dL Low 3.4 - 5.0 g/dL [facility] Anion gap [Moles/Vol] 12 mmol/L 10 - 2 0 mmol/L [facility] Calcium [Mass/Vol] 9.4 mg/dL 8.6 - 10. 6 mg/dL [facility] Chloride [Moles/Vol] 106 mmol/L 98 - 10 7 mmol/L [facility] CO2 [Moles/Vol] 24 mmol/L 21 - 32 mmol/L [facility] Creatinine [Mass/Vol] 1.6 mg/dL High 0.50 - 1.30 mg/dL [facility] GFR/1.73 sq M.predicted among non-blacks MDRD (S/P/Bld) [Vol rate/Area] 52 mL/min/{1.73_m2} Low - PINF [facility] Glucose [Mass/Vol] 79 mg/dL 74 - 99 mg/dL [facility] Interpretation and review of laboratory results Abnormal [facility] Phosphate [Mass/Vol] 3.8 mg/dL 2.5 - 4 .9 mg/dL [facility] Potassium [Moles/Vol] 4.1 mmol/L 3.5 - 5.3 mmol/L [facility] Sodium [Moles/Vol] 138 mmol/L 136 - 145 mmol/L [facility] Urea nitrogen [Mass/Vol] 20 mg/dL 6 - 23 mg/d L [facility] Urinalysis complete W Reflex Culture panel (U)on 10-11-2024 Appearance (U) Clear Clear [facility] Bilirubin (U) [Mass/Vol] Negative NEGATIVE [facility] Color (U) Light-Yellow Light-Yellow, Yellow, Dark-Yellow [facility] Glucose Auto test strip (U) [Mass/Vol] Normal Normal mg/dL [facility] Interpretation and review of laboratory results Abnormal [facility] Ketones (U) [Mass/Vol] Negative NEGAT SUELMA mg/dL [facility] Leukocyte esterase Auto test strip Ql (U) Negative NEGATIVE [facility] Nitrite Auto test strip Ql (U) Negative NEGATIVE [facility] pH (U) 7 [pH] 5.0, 5.5, 6.0, 6.5, 7.0, 7.5, 8.0 [facility] Protein (U) [Mass/Vol] Negative NEGAT SULEMA, 10 (TRACE), 20 (TRACE) mg/dL [facility] RBC (U) [#/Vol] Negative NEGATIVE [facility] Specific gravity (U) [Rel density] 1.037 Abnormal 1.005 - 1.035 [facility] Urobilinogen (U) [Mass/Vol] Normal Normal mg/dL [facility] Urine electrolyteson 025 Chloride (U) [Moles/Vol] 123 mmol/L [facility] Chloride/Creatinine Ratio 89 [facility] Creatinine (U) [Mass/Vol] 138.4 mg/dL 20.0 - 370.0 mg/dL [facility] Potassium (U) [Moles/Vol] 50 mmol/L [facility] Potassium/Creatinine (U) [Ratio] 36 Not established mmol/g [facility] Sodium (U) [Moles/Vol] 123 mmol/L [facility] Sodium/Creatinine (U) [Ratio] 89 Not established. mmol/g Creat [facility] Blood type and Indirect anti body screen panel (Bld)on 10-10-2024 ABO group Nom (Bld) A [facility] Blood group antibody screen Ql Negative [facility] D Ag Ql (Bld) Positive [facility] CBC W Auto Differential pane l (Bld)on 10-10-2024 Basophils (Bld) [#/Vol] 0.08 10*3/uL [facility] Basophils/100 WBC (Bld) 0.5 % 0.0 - 2.0 % [facility] Eosinophils (Bld) [#/Vol] 0.25 10*3/uL [facility] Eosinophils/100 WBC (Bld) 1.4 % 0.0 - 6.0 % [facility] Erythrocyte distribution width (RBC) [Ratio] 17.4 % High 11.5 - 14.5 % [facility] Hematocrit (Bld) [Volume fraction] 31.9 % Low 41.0 - 52.0 % [facility] Hemoglobin (Bld) [Mass/Vol] 10.5 g/dL Low 13.5 - 17.5 g/dL [facility] Immature granulocytes (Bld) [#/Vol] 0.4 10*3/uL [facility] Immature granulocytes/100 WBC (Bld) 2.3 % High 0.0 - 0.9 % [facility] Interpretation and review of laboratory results Abnormal [facility] Lymphocytes (Bld) [#/Vol] 2.73 10*3/uL [facility] Lymphocytes/100 WBC (Bld) 15.6 % 13.0 - 44.0 % [facility] MCH (RBC) [Entitic mass] 27.5 pg 26. 0 - 34.0 pg [facility] MCHC (RBC) [Mass/Vol] 32.9 g/dL 32.0 - 36.0 g/dL [facility] MCV (RBC) [Entitic vol] 84 fL 80 - 100 fL [facility] Monocytes (Bld) [#/Vol] 1.6 10*3/uL High [facility] Monocytes/100 WBC (Bld) 9.1 % 2.0 - 10.0 % [facility] Neutrophils (Bld) [#/Vol] 12.45 10*3/uL High [facility] Neutrophils/100 WBC (Bld) 71.1 % 40.0 - 80.0 % [facility] Nucleated RBC/100 WBC (Bld) [Ratio] 0 % [facility] Platelets (Bld) [#/Vol] 721 10*3/uL High [facility] RBC (Bld) [#/Vol] 3.82 10*6/uL Low Unive [facility] WBC (Bld) [#/Vol] 17.5 10*3/uL High [facility] CT Pelvis W contrast Mp [facility] MMODAL [facility] MMODAL [facility] Work Phone: Radiology Study observation (narrative) [facility] Work Phone: CT Pelvis W contrast IVOrder ed By: Beronica Valentin on 10-10-2024 [facility] Work Phone: Comprehensive metabolic 2000 panelon 10-10-2024 Albumin BCP dye [Mass/Vol] 3.8 g/dL 3.4 - 5.0 g/dL [facility] ALP [Catalytic activity/Vol] 79 U/L 33 - 120 U/L [facility] ALT With P-5'-P [Catalytic activity/Vol] 14 U/L 10 - 52 U/L [facility] Anion gap [Moles/Vol] 16 mmol/L 10 - 2 0 mmol/L [facility] AST With P-5'-P [Catalytic activity/Vol] 9 U/L 9 - 39 U/L [facility] Bilirubin [Mass/Vol] 0.2 mg/dL 0.0 - 1 .2 mg/dL [facility] Calcium [Mass/Vol] 10.4 mg/dL 8.6 - 10. 6 mg/dL [facility] Chloride [Moles/Vol] 104 mmol/L 98 - 10 7 mmol/L [facility] CO2 [Moles/Vol] 23 mmol/L 21 - 32 mmol/L [facility] Creatinine [Mass/Vol] 1.69 mg/dL High 0.50 - 1.30 mg/dL [facility] GFR/1.73 sq M.predicted among non-blacks MDRD (S/P/Bld) [Vol rate/Area] 49 mL/min/{1.73_m2} Low - PINF [facility] Glucose [Mass/Vol] 105 mg/dL High 74 - 99 mg/dL [facility] Interpretation and review of laboratory results Abnormal [facility] Potassium [Moles/Vol] 4.1 mmol/L 3.5 - 5.3 mmol/L [facility] Protein [Mass/Vol] 7.9 g/dL 6.4 - 8.2 g/dL [facility] Sodium [Moles/Vol] 139 mmol/L 136 - 145 mmol/L [facility] Urea nitrogen [Mass/Vol] 21 mg/dL 6 - 23 mg/d L [facility] Gas panel (BldV)on 5 Anion gap 4 (BldV) [Moles/Vol] 11 mmol/L 10.0 - 25.0 mmol/L [facility] Base excess Calc (BldV) [Moles/Vol] 0.9 mmol/L -2.0 - 3.0 mmol/L [facility] Calcium.ionized (BldV) [Moles/Vol] 1.31 mmol/L 1.10 - 1.33 mmol/L [facility] Chloride (BldV) [Moles/Vol] 106 mmol/L 98 - 107 mmol/L [facility] CO2 (BldV) [Partial pressure] 38 mm[Hg] Low [facility] Glucose [Mass/Vol] 109 mg/dL High 74 - 99 mg/dL [facility] HCO3 (Bld) [Moles/Vol] 25.2 mmol/L 22.0 - 26.0 mmol/L [facility] Hematocrit Est (Bld) [Volume fraction] 31 % Low 41.0 - 52.0 % [facility] Hemoglobin (Bld) [Mass/Vol] 10.2 g/dL Low 13.5 - 17.5 g/dL [facility] Inhaled oxygen concentration 21 % [facility] Interpretation and review of laboratory results Abnormal [facility] Lactate (BldV) [Moles/Vol] 1.2 mmol/L 0.4 - 2.0 mmol/L [facility] Oxygen (BldV) [Partial pressure] 43 mm[Hg] [facility] Oxygen saturation in Venous blood 78 % High 45 - 75 % [facility] Oxyhemoglobin (BldV) [Mass fraction] 74.1 % 45.0 - 75.0 % [facility] pH (BldV) 7.43 [pH] 7.33 - 7.43 pH [facility] Potassium (BldV) [Moles/Vol] 4.7 mmol/L 3.5 - 5.3 mmol/L [facility] Sodium (BldV) [Moles/Vol] 137 mmol/L 136 - 145 mmol/L [facility] PT and aPTT panel Coag (PPP) on 10-10-2024 aPTT Coag (PPP) [Time] 32 s Un [facility] INR Coag (PPP) [Relative time] 1.2 {INR} High 0.9 - 1.1 [facility] Interpretation and review of laboratory results Abnormal [facility] PT Coag (PPP) [Time] 13.8 s High [facility] XR Chest Single viewon 10-10 [facility] MM[facility]AL [facility] MM[facility]AL [facility] Work Phone: Radiology Study observation (narrative) [facility] Work Phone: XR Chest Single viewOrdered By: Perry Baires on 10-10-2024 [facility] Work Phone: CBC W Auto Differential pane l (Bld)on 09-17-2024 Basophils (Bld) [#/Vol] 0.06 10*3/uL [facility] Basophils/100 WBC (Bld) 0.5 % 0.0 - 2.0 % [facility] Eosinophils (Bld) [#/Vol] 0.41 10*3/uL [facility] Eosinophils/100 WBC (Bld) 3.3 % 0.0 - 6.0 % [facility] Erythrocyte distribution width (RBC) [Ratio] 17.2 % High 11.5 - 14.5 % [facility] Hematocrit (Bld) [Volume fraction] 27.5 % Low 41.0 - 52.0 % [facility] Hemoglobin (Bld) [Mass/Vol] 8.5 g/dL Low 13.5 - 17.5 g/dL [facility] Immature granulocytes (Bld) [#/Vol] 0.22 10*3/uL [facility] Immature granulocytes/100 WBC (Bld) 1.8 % High 0.0 - 0.9 % [facility] Comment on above: Immature Granulocyte Count (IG) includes promyelocytes, myelocytes and metamyelocytes but does not include bands. Percent differential counts (%) should be interpreted in the context of the absolute cell counts (cells/UL). Interpretation and review of laboratory results Abnormal [facility] Lymphocytes (Bld) [#/Vol] 2.5 10*3/uL [facility] Lymphocytes/100 WBC (Bld) 20.3 % 13.0 - 44.0 % [facility] MCH (RBC) [Entitic mass] 27.2 pg 26. 0 - 34.0 pg [facility] MCHC (RBC) [Mass/Vol] 30.9 g/dL Low 32.0 - 36.0 g/dL [facility] MCV (RBC) [Entitic vol] 88 fL 80 - 100 fL [facility] Monocytes (Bld) [#/Vol] 0.83 10*3/uL [facility] Monocytes/100 WBC (Bld) 6.8 % 2.0 - 10.0 % [facility] Neutrophils (Bld) [#/Vol] 8.27 10*3/uL High [facility] Comment on above: Percent differential counts (%) should be interpreted in the context of the absolute cell counts (cells/uL). Neutrophils/100 WBC (Bld) 67.3 % 40.0 - 80.0 % [facility] Nucleated RBC/100 WBC (Bld) [Ratio] 0 % [facility] Platelets (Bld) [#/Vol] 635 10*3/uL High [facility] RBC (Bld) [#/Vol] 3.13 10*6/uL Low Unive [facility] WBC (Bld) [#/Vol] 12.3 10*3/uL High Unive [facility] Cryptococcus sp Ag LA Ql (Un sp spec)Ordered By: Makenna Grider on 09-17-2024 Interpretation and review of laboratory results Normal [facility] Fungitell Beta-D Glucan Seru mon 09-17-2024 Fungitell Beta-D Glucan,Serum <31 NINF - 80 pg/mL [facility] Comment on above: Interpretation: The Fungitell assay does not detect certain fungal species such as the genus Cryptococcus (Karli et al. 1991) which produces very low levels of (1-3)-Xzhr-J-Zcvscc. The assay also does not detect the Zygomycetes such as Absidia, Mucor and Rhizopus (Jason et al. 1994) which are not known to produce (1-3)-Ypxr-B-Klxraf. In addition, the yeast phase of Blastomyces dermatitidis produces little (1-3)-Vkay-U-Vwwwib and may not be detected by the [...] characteristics for these modifications were determined by [facility]. If sample result is greater than 500 pg/mL, physician may order a titer of the sample. Please contact [facility] if you would like to order a retest of this sample to obtain an actual value. Samples are held for 1 week after initial testing date. Testing Performed at: [facility] [address] [place] [address] Credit Analyst: Perry Bueno, PhD ALONDRA (ABB) CLIA # [id number] FLAG Interpretation: A = Abnormal, H = High, L = Low [facility] Laboratory - Chemistry and C hemistry - challengeon 09-17-2024 Magnesium [Mass/Vol] 2.44 mg/dL High 1.60 - 2.40 mg/dL [facility] Laboratory - Microbiology an d Antimicrobial susceptibilityOrdered By: Makenna Grider on 09-17-2024 Cryptococcus sp Ag LA Ql (Unsp spec) Negative Negative, Invalid [facility] No Panel Informationon 09-17 Aspergillus Galactomanan EIA,S 0.027 NINF - 0.500 [facility] Comment on above: Interpretation: Sydni ents with [...] Aspergillus Galactomannan EIA is a product of [employer] and is FDA approved for in vitro diagnostic use. Testing Performed at: [facility] [id number], [place] [address] Credit Analyst: Perry Bueno, PhD ALONDRA (ABB) CLIA # [id number] FLAG Interpretation: A = Abnormal, H = High, L = Low [facility] Interpretation and review of laboratory results Abnormal [facility] Renal function 2000 panelon 09-17-2024 Albumin BCP dye [Mass/Vol] 3.1 g/dL Low 3.4 - 5.0 g/dL [facility] Anion gap [Moles/Vol] 16 mmol/L 10 - 2 0 mmol/L [facility] Calcium [Mass/Vol] 9.1 mg/dL 8.6 - 10. 6 mg/dL [facility] Chloride [Moles/Vol] 106 mmol/L 98 - 10 7 mmol/L [facility] CO2 [Moles/Vol] 23 mmol/L 21 - 32 mmol/L [facility] Creatinine [Mass/Vol] 1.89 mg/dL High 0.50 - 1.30 mg/dL [facility] GFR/1.73 sq M.predicted among non-blacks MDRD (S/P/Bld) [Vol rate/Area] 42 mL/min/{1.73_m2} Low - PINF [facility] Comment on above: Calculations of vern mated GFR are performed using the 2020 CKD-EPI Study Refit equation without the race variable for the IDMS-Traceable creatinine methods. https://jasn.asnjournals.org/content/early/ASN.498 6299168 Glucose [Mass/Vol] 85 mg/dL 74 - 99 mg/dL [facility] Phosphate [Mass/Vol] 4.2 mg/dL 2.5 - 4 .9 mg/dL [facility] Comment on above: The performance andres acteristics of phosphorus testing in heparinized plasma have been validated by the individual laboratory site where testing is performed. Testing on heparinized plasma is not approved by the FDA; however, such approval is not necessary. Potassium [Moles/Vol] 4.5 mmol/L 3.5 - 5.3 mmol/L [facility] Sodium [Moles/Vol] 140 mmol/L 136 - 145 mmol/L [facility] Urea nitrogen [Mass/Vol] 15 mg/dL 6 - 23 mg/d L [facility] Bacteria identified Cx Nom ( Unsp spec)on 09-16-2024 Beta lactamase organism identified Nom (Isol) Positive [facility] Work Phone: [phone] Microscopic observation Gram stain Nom (Unsp spec) No polymorphonuclear leukocytes seen [facility] Work Phone: [phone] Microscopic observation Gram stain Nom (Unsp spec) No organisms seen [facility] Work Phone: )[phone] [facility] Work Phone: )[phone] Beta lactamase organism identified Nom (Isol) Positive [facility] Work Phone: )[phone] Interpretation and review of laboratory results Abnormal [facility] Work Phone: )[phone] Microscopic observation Gram stain Nom (Unsp spec) (4+) Abundant Polymorphonuclear leukocytes Abnormal [facility] Work Phone: [phone] Microscopic observation Gram stain Nom (Unsp spec) Positive Abnormal [facility] Work Phone: )[phone] [facility] Work Phone: [phone] Bacteria identified Cx Nom ( Unsp spec)Ordered By: Phil Casas on 09-16-2024 Beta lactamase organism identified Nom (Isol) Positive [facility] Interpretation and review of laboratory results Abnormal [facility] Microscopic observation Gram stain Nom (Unsp spec) (4+) Abundant Polymorphonuclear leukocytes Abnormal [facility] Microscopic observation Gram stain Nom (Unsp spec) Positive Abnormal [facility] CBC W Auto Differential pane l (Bld)on 09-16-2024 Basophils (Bld) [#/Vol] 0.05 10*3/uL [facility] Basophils/100 WBC (Bld) 0.4 % 0.0 - 2.0 % [facility] Eosinophils (Bld) [#/Vol] 0.51 10*3/uL [facility] Eosinophils/100 WBC (Bld) 4.1 % 0.0 - 6.0 % [facility] Erythrocyte distribution width (RBC) [Ratio] 17.1 % High 11.5 - 14.5 % [facility] Hematocrit (Bld) [Volume fraction] 25.8 % Low 41.0 - 52.0 % [facility] Hemoglobin (Bld) [Mass/Vol] 8.2 g/dL Low 13.5 - 17.5 g/dL [facility] Immature granulocytes (Bld) [#/Vol] 0.13 10*3/uL [facility] Immature granulocytes/100 WBC (Bld) 1.1 % High 0.0 - 0.9 % [facility] Comment on above: Immature Granulocyte Count (IG) includes promyelocytes, myelocytes and metamyelocytes but does not include bands. Percent differential counts (%) should be interpreted in the context of the absolute cell counts (cells/UL). Interpretation and review of laboratory results Abnormal [facility] Lymphocytes (Bld) [#/Vol] 2.74 10*3/uL [facility] Lymphocytes/100 WBC (Bld) 22.2 % 13.0 - 44.0 % [facility] MCH (RBC) [Entitic mass] 28.1 pg 26. 0 - 34.0 pg [facility] MCHC (RBC) [Mass/Vol] 31.8 g/dL Low 32.0 - 36.0 g/dL [facility] MCV (RBC) [Entitic vol] 88 fL 80 - 100 fL [facility] Monocytes (Bld) [#/Vol] 0.72 10*3/uL [facility] Monocytes/100 WBC (Bld) 5.8 % 2.0 - 10.0 % [facility] Neutrophils (Bld) [#/Vol] 8.18 10*3/uL High [facility] Comment on above: Percent differential counts (%) should be interpreted in the context of the absolute cell counts (cells/uL). Neutrophils/100 WBC (Bld) 66.4 % 40.0 - 80.0 % [facility] Nucleated RBC/100 WBC (Bld) [Ratio] 0 % [facility] Platelets (Bld) [#/Vol] 597 10*3/uL High [facility] RBC (Bld) [#/Vol] 2.92 10*6/uL Low [facility] WBC (Bld) [#/Vol] 12.3 10*3/uL High Unive [facility] Laboratory - Chemistry and C hemistry - challengeon 09-16-2024 Magnesium [Mass/Vol] 2.4 mg/dL 1.60 - 2.40 mg/dL [facility] Laboratory - Drug toxicology on 09-16-2024 Vancomycin [Mass/Vol] 17.6 ug/mL 5.0 - 20.0 ug/mL [facility] Vancomycin [Mass/Vol] 18 ug/mL 5.0 - 20.0 ug/mL [facility] Laboratory - Microbiology an d Antimicrobial susceptibilityon 09-16-2024 Bacteria identified Cx Nom (Unsp spec) (1+) Rare Mixed Skin Microorganisms [facility] Work Phone: Bacteria identified Cx Nom (Unsp spec) (3+) Moderate Mixed Anaerobic Bacteria [facility] Work Phone: Bacteria identified Cx Nom (Unsp spec) (4+) Abundant Mixed Aerobic and Anaerobic Bacteria [facility] Work Phone: Laboratory - Microbiology an d Antimicrobial susceptibilityOrdered By: Phil Casas on 09-16-2024 Bacteria identified Cx Nom (Unsp spec) (2+) Few Mixed Aerobic and Anaerobic Bacteria [facility] Magnesium [Mass/Vol]on 09-16 Interpretation and review of laboratory results Normal [facility] No Panel Informationon 09-16 [facility] Renal function 2000 panelon 09-16-2024 Albumin BCP dye [Mass/Vol] 3.2 g/dL Low 3.4 - 5.0 g/dL [facility] Anion gap [Moles/Vol] 15 mmol/L 10 - 2 0 mmol/L [facility] Calcium [Mass/Vol] 9.3 mg/dL 8.6 - 10. 6 mg/dL [facility] Chloride [Moles/Vol] 104 mmol/L 98 - 10 7 mmol/L [facility] CO2 [Moles/Vol] 26 mmol/L 21 - 32 mmol/L [facility] Creatinine [Mass/Vol] 1.88 mg/dL High 0.50 - 1.30 mg/dL [facility] GFR/1.73 sq M.predicted among non-blacks MDRD (S/P/Bld) [Vol rate/Area] 43 mL/min/{1.73_m2} Low - PINF [facility] Comment on above: Calculations of vern mated GFR are performed using the 2020 CKD-EPI Study Refit equation without the race variable for the IDMS-Traceable creatinine methods. https://jasn.asnjournals.org/content//ASN.541 7592274 Glucose [Mass/Vol] 91 mg/dL 74 - 99 mg/dL [facility] Interpretation and review of laboratory results Abnormal [facility] Phosphate [Mass/Vol] 4 mg/dL 2.5 - 4 .9 mg/dL [facility] Comment on above: The performance andres acteristics of phosphorus testing in heparinized plasma have been validated by the individual laboratory site where testing is performed. Testing on heparinized plasma is not approved by the FDA; however, such approval is not necessary. Potassium [Moles/Vol] 4.6 mmol/L 3.5 - 5.3 mmol/L [facility] Sodium [Moles/Vol] 140 mmol/L 136 - 145 mmol/L [facility] Urea nitrogen [Mass/Vol] 15 mg/dL 6 - 23 mg/d L [facility] Vancomycin [Mass/Vol]on 08-20 Interpretation and review of laboratory results Normal [facility] Vancomycin levels can be monitored according to [...] 30.0-40.0 ug/mL Trough (all ages): 10.0-20.0 ug/mL [facility] Interpretation and review of laboratory results Normal [facility] Vancomycin levels can be monitored according to [...] 30.0-40.0 ug/mL Trough (all ages): 10.0-20.0 ug/mL [facility] CBC W Auto Differential pane l (Bld)on 09-15-2024 Basophils (Bld) [#/Vol] 0.05 10*3/uL [facility] Basophils/100 WBC (Bld) 0.4 % 0.0 - 2.0 % [facility] Eosinophils (Bld) [#/Vol] 0.43 10*3/uL [facility] Eosinophils/100 WBC (Bld) 3.9 % 0.0 - 6.0 % [facility] Erythrocyte distribution width (RBC) [Ratio] 16.7 % High 11.5 - 14.5 % [facility] Hematocrit (Bld) [Volume fraction] 25.2 % Low 41.0 - 52.0 % [facility] Hemoglobin (Bld) [Mass/Vol] 8.1 g/dL Low 13.5 - 17.5 g/dL [facility] Immature granulocytes (Bld) [#/Vol] 0.15 10*3/uL [facility] Immature granulocytes/100 WBC (Bld) 1.3 % High 0.0 - 0.9 % [facility] Comment on above: Immature Granulocyte Count (IG) includes promyelocytes, myelocytes and metamyelocytes but does not include bands. Percent differential counts (%) should be interpreted in the context of the absolute cell counts (cells/UL). Interpretation and review of laboratory results Abnormal [facility] Lymphocytes (Bld) [#/Vol] 2.38 10*3/uL [facility] Lymphocytes/100 WBC (Bld) 21.4 % 13.0 - 44.0 % [facility] MCH (RBC) [Entitic mass] 28.1 pg 26. 0 - 34.0 pg [facility] MCHC (RBC) [Mass/Vol] 32.1 g/dL 32.0 - 36.0 g/dL [facility] MCV (RBC) [Entitic vol] 88 fL 80 - 100 fL [facility] Monocytes (Bld) [#/Vol] 0.69 10*3/uL [facility] Monocytes/100 WBC (Bld) 6.2 % 2.0 - 10.0 % [facility] Neutrophils (Bld) [#/Vol] 7.44 10*3/uL [facility] Comment on above: Percent differential counts (%) should be interpreted in the context of the absolute cell counts (cells/uL). Neutrophils/100 WBC (Bld) 66.8 % 40.0 - 80.0 % [facility] Nucleated RBC/100 WBC (Bld) [Ratio] 0 % [facility] Platelets (Bld) [#/Vol] 526 10*3/uL High [facility] RBC (Bld) [#/Vol] 2.88 10*6/uL Low [facility] WBC (Bld) [#/Vol] 11.1 10*3/uL [facility] Laboratory - Chemistry and C hemistry - challengeon 09-15-2024 Magnesium [Mass/Vol] 2.26 mg/dL 1.60 - 2.40 mg/dL [facility] Magnesium [Mass/Vol]on 09-15 Interpretation and review of laboratory results Normal [facility] No Panel Informationon 09-15 [facility] Renal function 2000 panelon 09-15-2024 Albumin BCP dye [Mass/Vol] 3.1 g/dL Low 3.4 - 5.0 g/dL [facility] Anion gap [Moles/Vol] 15 mmol/L 10 - 2 0 mmol/L [facility] Calcium [Mass/Vol] 8.9 mg/dL 8.6 - 10. 6 mg/dL [facility] Chloride [Moles/Vol] 105 mmol/L 98 - 10 7 mmol/L [facility] CO2 [Moles/Vol] 24 mmol/L 21 - 32 mmol/L [facility] Creatinine [Mass/Vol] 1.77 mg/dL High 0.50 - 1.30 mg/dL [facility] GFR/1.73 sq M.predicted among non-blacks MDRD (S/P/Bld) [Vol rate/Area] 46 mL/min/{1.73_m2} Low - PINF [facility] Comment on above: Calculations of vern mated GFR are performed using the 2020 CKD-EPI Study Refit equation without the race variable for the IDMS-Traceable creatinine methods. https://jasn.asnjournals.org/content//ASN.712 1183074 Glucose [Mass/Vol] 122 mg/dL High 74 - 99 mg/dL [facility] Interpretation and review of laboratory results Abnormal [facility] Phosphate [Mass/Vol] 4.3 mg/dL 2.5 - 4 .9 mg/dL [facility] Comment on above: The performance andres acteristics of phosphorus testing in heparinized plasma have been validated by the individual laboratory site where testing is performed. Testing on heparinized plasma is not approved by the FDA; however, such approval is not necessary. Potassium [Moles/Vol] 4 mmol/L 3.5 - 5.3 mmol/L [facility] Sodium [Moles/Vol] 140 mmol/L 136 - 145 mmol/L [facility] Urea nitrogen [Mass/Vol] 18 mg/dL 6 - 23 mg/d L [facility] Albumin BCP dye [Mass/Vol] 3 g/dL Low 3.4 - 5.0 g/dL [facility] Anion gap [Moles/Vol] 13 mmol/L 10 - 2 0 mmol/L [facility] Calcium [Mass/Vol] 9 mg/dL 8.6 - 10. 6 mg/dL [facility] Chloride [Moles/Vol] 106 mmol/L 98 - 10 7 mmol/L [facility] CO2 [Moles/Vol] 24 mmol/L 21 - 32 mmol/L [facility] Creatinine [Mass/Vol] 1.7 mg/dL High 0.50 - 1.30 mg/dL [facility] GFR/1.73 sq M.predicted among non-blacks MDRD (S/P/Bld) [Vol rate/Area] 48 mL/min/{1.73_m2} Low - PINF [facility] Comment on above: Calculations of vern mated GFR are performed using the 2020 CKD-EPI Study Refit equation without the race variable for the IDMS-Traceable creatinine methods. https://jasn.asnjournals.org/content//ASN.653 8462913 Glucose [Mass/Vol] 116 mg/dL High 74 - 99 mg/dL [facility] Interpretation and review of laboratory results Abnormal [facility] Phosphate [Mass/Vol] 4.6 mg/dL 2.5 - 4 .9 mg/dL [facility] Comment on above: The performance andres acteristics of phosphorus testing in heparinized plasma have been validated by the individual laboratory site where testing is performed. Testing on heparinized plasma is not approved by the FDA; however, such approval is not necessary. Potassium [Moles/Vol] 4 mmol/L 3.5 - 5.3 mmol/L [facility] Sodium [Moles/Vol] 139 mmol/L 136 - 145 mmol/L [facility] Urea nitrogen [Mass/Vol] 17 mg/dL 6 - 23 mg/d L [facility] Blood type and Indirect anti body screen panel (Bld)on 09-14-2024 ABO group Nom (Bld) A [facility] Blood group antibody screen Ql Negative [facility] D Ag Ql (Bld) Positive [facility] Comment on above: 2nd ABO test require d. Order and Collect VERAB [facility] CBC W Auto Differential pane l (Bld)on 09-14-2024 Basophils (Bld) [#/Vol] 0.05 10*3/uL [facility] Basophils/100 WBC (Bld) 0.4 % 0.0 - 2.0 % [facility] Eosinophils (Bld) [#/Vol] 0.47 10*3/uL [facility] Eosinophils/100 WBC (Bld) 3.6 % 0.0 - 6.0 % [facility] Erythrocyte distribution width (RBC) [Ratio] 16.8 % High 11.5 - 14.5 % [facility] Hematocrit (Bld) [Volume fraction] 24.4 % Low 41.0 - 52.0 % [facility] Hemoglobin (Bld) [Mass/Vol] 7.9 g/dL Low 13.5 - 17.5 g/dL [facility] Immature granulocytes (Bld) [#/Vol] 0.07 10*3/uL [facility] Immature granulocytes/100 WBC (Bld) 0.5 % 0.0 - 0.9 % [facility] Comment on above: Immature Granulocyte Count (IG) includes promyelocytes, myelocytes and metamyelocytes but does not include bands. Percent differential counts (%) should be interpreted in the context of the absolute cell counts (cells/UL). Interpretation and review of laboratory results Abnormal [facility] Lymphocytes (Bld) [#/Vol] 1.93 10*3/uL [facility] Lymphocytes/100 WBC (Bld) 14.8 % 13.0 - 44.0 % [facility] MCH (RBC) [Entitic mass] 28.1 pg 26. 0 - 34.0 pg [facility] MCHC (RBC) [Mass/Vol] 32.4 g/dL 32.0 - 36.0 g/dL [facility] MCV (RBC) [Entitic vol] 87 fL 80 - 100 fL [facility] Monocytes (Bld) [#/Vol] 1.3 10*3/uL High [facility] Monocytes/100 WBC (Bld) 10 % 2.0 - 10.0 % [facility] Neutrophils (Bld) [#/Vol] 9.23 10*3/uL High [facility] Comment on above: Percent differential counts (%) should be interpreted in the context of the absolute cell counts (cells/uL). Neutrophils/100 WBC (Bld) 70.7 % 40.0 - 80.0 % [facility] Nucleated RBC/100 WBC (Bld) [Ratio] 0 % [facility] Platelets (Bld) [#/Vol] 528 10*3/uL High [facility] RBC (Bld) [#/Vol] 2.81 10*6/uL Low [facility] WBC (Bld) [#/Vol] 13.1 10*3/uL High [facility] CBC W Auto Differential pane l (Bld)Ordered By: Estephania Tom on 09-14-2024 Basophils (Bld) [#/Vol] 0.04 10*3/uL [facility] Basophils/100 WBC (Bld) 0.3 % 0.0 - 2.0 % [facility] Eosinophils (Bld) [#/Vol] 0.63 10*3/uL [facility] Eosinophils/100 WBC (Bld) 4.7 % 0.0 - 6.0 % [facility] Erythrocyte distribution width (RBC) [Ratio] 16.7 % High 11.5 - 14.5 % [facility] Hematocrit (Bld) [Volume fraction] 24.7 % Low 41.0 - 52.0 % [facility] Hemoglobin (Bld) [Mass/Vol] 7.8 g/dL Low 13.5 - 17.5 g/dL [facility] Immature granulocytes (Bld) [#/Vol] 0.08 10*3/uL [facility] Immature granulocytes/100 WBC (Bld) 0.6 % 0.0 - 0.9 % [facility] Comment on above: Immature Granulocyte Count (IG) includes promyelocytes, myelocytes and metamyelocytes but does not include bands. Percent differential counts (%) should be interpreted in the context of the absolute cell counts (cells/UL). Interpretation and review of laboratory results Abnormal [facility] Lymphocytes (Bld) [#/Vol] 2.35 10*3/uL [facility] Lymphocytes/100 WBC (Bld) 17.5 % 13.0 - 44.0 % [facility] MCH (RBC) [Entitic mass] 27.6 pg 26. 0 - 34.0 pg [facility] MCHC (RBC) [Mass/Vol] 31.6 g/dL Low 32.0 - 36.0 g/dL [facility] MCV (RBC) [Entitic vol] 87 fL 80 - 100 fL [facility] Monocytes (Bld) [#/Vol] 1.18 10*3/uL High [facility] Monocytes/100 WBC (Bld) 8.8 % 2.0 - 10.0 % [facility] Neutrophils (Bld) [#/Vol] 9.13 10*3/uL [facility] Comment on above: Percent differential counts (%) should be interpreted in the context of the absolute cell counts (cells/uL). Neutrophils/100 WBC (Bld) 68.1 % 40.0 - 80.0 % [facility] Nucleated RBC/100 WBC (Bld) [Ratio] 0 % [facility] Platelets (Bld) [#/Vol] 523 10*3/uL High [facility] RBC (Bld) [#/Vol] 2.83 10*6/uL Low [facility] WBC (Bld) [#/Vol] 13.4 10*3/uL [facility] Comprehensive metabolic 2000 panelOrdered By: Nabil Bermudez on 09-14-2024 Albumin BCP dye [Mass/Vol] 3 g/dL Low 3.4 - 5.0 g/dL [facility] ALP [Catalytic activity/Vol] 55 U/L 33 - 120 U/L [facility] ALT With P-5'-P [Catalytic activity/Vol] 21 U/L 10 - 52 U/L [facility] Comment on above: Patients treated wit h Sulfasalazine may generate falsely decreased results for ALT. Anion gap [Moles/Vol] 12 mmol/L 10 - 2 0 mmol/L [facility] AST With P-5'-P [Catalytic activity/Vol] 31 U/L 9 - 39 U/L [facility] Bilirubin [Mass/Vol] 0.3 mg/dL 0.0 - 1 .2 mg/dL [facility] Calcium [Mass/Vol] 8.6 mg/dL 8.6 - 10. 6 mg/dL [facility] Chloride [Moles/Vol] 105 mmol/L 98 - 10 7 mmol/L [facility] CO2 [Moles/Vol] 24 mmol/L 21 - 32 mmol/L [facility] Creatinine [Mass/Vol] 1.64 mg/dL High 0.50 - 1.30 mg/dL [facility] GFR/1.73 sq M.predicted among non-blacks MDRD (S/P/Bld) [Vol rate/Area] 50 mL/min/{1.73_m2} Low - PINF [facility] Comment on above: Calculations of vern mated GFR are performed using the 2020 CKD-EPI Study Refit equation without the race variable for the IDMS-Traceable creatinine methods. https://jasn.asnjournals.org/content//ASN.694 6599357 Glucose [Mass/Vol] 137 mg/dL High 74 - 99 mg/dL [facility] Interpretation and review of laboratory results Abnormal [facility] Potassium [Moles/Vol] 4.3 mmol/L 3.5 - 5.3 mmol/L [facility] Protein [Mass/Vol] 6 g/dL Low 6.4 - 8.2 g/dL [facility] Sodium [Moles/Vol] 137 mmol/L 136 - 145 mmol/L [facility] Urea nitrogen [Mass/Vol] 16 mg/dL 6 - 23 mg/d L [facility] ECG 12-LEADon 09-14-2024 ECG 12-LEAD Ventricular Rate 86 Atrial Rate 86 P-R Interval 134 QRS Duration 98 Q-T Interval 360 QTC Calculation(Bazett) 430 P [place] 56 R [place] 62 T [place] 56 QRS Count 14 Q Onset 222 P Onset 155 P Offset 207 T Offset 402 QTC Fredericia 406 Diagnosis Normal sinus rhythm Normal ECG When compared with ECG of 29-FEB-2024 11:08, No significant change was found Confirmed by Bobby Villa ([id number]) on 09/21/2024 5:01:58 PM Normal [facility] FLUAV and FLUBV RNA MERON+prob e Nom (Unsp spec)on 09-14-2024 FLUAV RNA MERON+probe Ql (Resp) Not detected Not Detected [facility] FLUBV RNA MERON+probe Ql (Resp) Not detected Not Detected [facility] This assay is an in vitro diagnostic multiplex nucleic acid amplification test for the detection and discrimination of Influenza A & B from nasopharyngeal specimens, and has been validated for use at [facility]. Negative results do not preclude Influenza A/B infections, and should not be used as the sole basis for diagnosis, treatment, or other management decisions. If Influenza A/B and RSV PCR results are negative, testing for Parainfluenza virus, Adenovirus and Metapneumovirus is routinely performed for [facility] pediatric oncology and intensive care inpatients, and is available on other patients by placing an add-on request. [facility] [facility] HbA1c (Bld) [Mass fraction]o n 09-14-2024 Average glucose Estimated from glycated hemoglobin (Bld) [Mass/Vol] 126 mg/dL Not Established [facility] Interpretation and review of laboratory results Abnormal [facility] Diagnosis of Diabetes-Adults Non-Diabetic: < or = 5.6% Increased risk for developing diabetes: 5.7-6.4% Diagnostic of diabetes: > or = 6.5% [facility] Laboratory - Chemistry and C hemistry - challengeon 09-14-2024 Magnesium [Mass/Vol] 2.14 mg/dL 1.60 - 2.40 mg/dL [facility] Magnesium [Mass/Vol] 2 mg/dL 1.60 - 2.40 mg/dL [facility] Work Phone: Phosphate [Mass/Vol] 3.8 mg/dL 2.5 - 4 .9 mg/dL [facility] Work Phone: Comment on above: The performance andres acteristics of phosphorus testing in heparinized plasma have been validated by the individual laboratory site where testing is performed. Testing on heparinized plasma is not approved by the FDA; however, such approval is not necessary. Laboratory - Drug toxicology on 09-14-2024 Vancomycin [Mass/Vol] 7.3 ug/mL 5.0 - 20.0 ug/mL [facility] Laboratory - Hematology and Cell countson 09-14-2024 HbA1c (Bld) [Mass fraction] 6 % High See comment [facility] Laboratory - Microbiology an d Antimicrobial susceptibilityon 09-14-2024 SARS-CoV-2 (COVID-19) RNA MERON+probe Ql (Resp) Not detected Not Detected [facility] Lipid 1996 panelon 4 Cholesterol [Mass/Vol] 106 mg/dL 0 - 199 mg/dL [facility] Comment on above: Age Desirable Borderline High [...] dosing. Cholesterol in HDL [Mass/Vol] 16.4 mg/dL [facility] Comment on above: Age Very Low Low Normal High 0-19 Y < 35 < 40 40-45 ---- 20-24 Y ---- < 40 >45 ---- >24 Y ---- < 40 40-60 >60 Cholesterol in LDL [Mass/Vol] 63 mg/dL NINF - 99 mg/dL [facility] Comment on above: Near Borderline AGE Desirable Optimal High High Very High 0-19 Y 0 - 109 --- 110-129 >/= 130 ---- 20-24 Y 0 - 119 --- 120-159 >/= 160 ---- >24 Y 0 - 99 100-129 130-159 160-189 >/=190 Cholesterol in VLDL [Mass/Vol] 27 mg/dL 0 - 40 mg/dL [facility] Cholesterol.total/Choles terol in HDL [Mass ratio] 6.5 {ratio} [facility] Comment on above: Ref Values Desirable < 3.4 High Risk > 5.0 Non HDL Cholesterol 90 mg/dL 0 - 149 mg/dL [facility] Comment on above: Age Desirable Borderline High High Very High 0-19 Y 0 - 119 120 - 144 >/= 145 >/= 160 20-24 Y 0 - 149 150 - 189 >/= 190 ---- >24 Y 30 mg/dL above LDL Cholesterol goal Triglyceride [Mass/Vol] 134 mg/dL 0 - 149 mg/d L [facility] Comment on above: Age Desirable Border line [...] Interpretation and review of laboratory results Normal [facility] Natriuretic peptide B (Bld) [Mass/Vol] 68 pg/mL 0 - 99 pg/mL [facility] <100 pg/mL - Heart failure unlikely 100-299 [...] contact their local laboratory for further information. [facility] No Panel Informationon 09-14 Interpretation and review of laboratory results Normal [facility] Extra Tube Hold for add-ons. [facility] Comment on above: Auto resulted. [facility] Extra Tube Hold for add-ons. [facility] Comment on above: Auto resulted. [facility] Interpretation and review of laboratory results Normal [facility] Interpretation and review of laboratory results Normal [facility] Work Phone: [facility] Work Phone: Renal function 2000 panelon 09-14-2024 Albumin BCP dye [Mass/Vol] 2.9 g/dL Low 3.4 - 5.0 g/dL [facility] Anion gap [Moles/Vol] 13 mmol/L 10 - 2 0 mmol/L [facility] Calcium [Mass/Vol] 8.9 mg/dL 8.6 - 10. 6 mg/dL [facility] Chloride [Moles/Vol] 106 mmol/L 98 - 10 7 mmol/L [facility] CO2 [Moles/Vol] 25 mmol/L 21 - 32 mmol/L [facility] Creatinine [Mass/Vol] 1.54 mg/dL High 0.50 - 1.30 mg/dL [facility] GFR/1.73 sq M.predicted among non-blacks MDRD (S/P/Bld) [Vol rate/Area] 54 mL/min/{1.73_m2} Low - PINF [facility] Comment on above: Calculations of vren mated GFR are performed using the 2020 CKD-EPI Study Refit equation without the race variable for the IDMS-Traceable creatinine methods. https://jasn.asnjournals.org/content/early//ASN.879 5162447 Glucose [Mass/Vol] 99 mg/dL 74 - 99 mg/dL [facility] Interpretation and review of laboratory results Abnormal [facility] Phosphate [Mass/Vol] 4.5 mg/dL 2.5 - 4 .9 mg/dL [facility] Comment on above: The performance andres acteristics of phosphorus testing in heparinized plasma have been validated by the individual laboratory site where testing is performed. Testing on heparinized plasma is not approved by the FDA; however, such approval is not necessary. Potassium [Moles/Vol] 4.2 mmol/L 3.5 - 5.3 mmol/L [facility] Sodium [Moles/Vol] 140 mmol/L 136 - 145 mmol/L [facility] Urea nitrogen [Mass/Vol] 14 mg/dL 6 - 23 mg/d L [facility] SARS-CoV-2 (COVID-19) RNA NA A+probe Ql (Resp)on [...] and has been validated for use at [facility]. Negative results do not preclude COVID-19 infections and should not be used as the sole basis for diagnosis, treatment, or other management decisions. [facility] Vancomycin [Mass/Vol]on 08-19 Vancomycin levels can be [...] 30.0-40.0 ug/mL Trough (all ages): 10.0-20.0 ug/mL [facility] XR Chest Single viewon 09-14 1. Right basilar bandlike opacities felt to be atelectatic in nature. Otherwise, no definite focal consolidation or sizable pleural effusion. Signed by: Miah Alves 09/14/2024 8:38 AM Dictation workstation: [id number] WINNIE GUAMAN Interpreted By: Miah Alves, STUDY: XR CHEST 1 VIEW; 09/13/2024 10:22 pm INDICATION: Signs/Symptoms:New fever. COMPARISON: None. ACCESSION NUMBER(S): [id number] ORDERING CLINICIAN: BALDOMERO POWELL FINDINGS: 2 AP [...] abdominal findings. BONES: No acute osseous abnormality. Miah Lubin MD - 09/14/2024 Interpreted By: Miah Alves, STUDY: XR CHEST 1 VIEW; 09/13/2024 10:22 pm INDICATION: Signs/Symptoms:New fever. COMPARISON: None. ACCESSION NUMBER(S): [id number] ORDERING CLINICIAN: BALDOMERO POWELL FINDINGS: 2 AP [...] Miah Alves 09/14/2024 8:38 AM Dictation workstation: [id number] [facility] Work Phone: XR Chest Single viewOrdered By: Miah Alves on 09-14-2024 [facility] Work Phone: Consulton 09-13-2024 Consult [facility] Wound Care CONSULT Note Kevan La [...] breath with walking. Wound Care consulted for Hydradenitis suppurativa PAST MEDICAL HISTORY No past medical history [...] (99.3 ?F) (Oral) Resp 18 Ht 6' 7 (2.007 m) Wt 230 lb (104 kg) [...] (H) 09/12/2024 PT/INR: No results found for: PROTIME, INR Prealbumin: No results found for: PREALBUMIN Albumin:No components found for: LABALBU Sed Rate:No results found for: SEDRATE Micro: No components found for: BC Assessment/Plan: Left buttocks: Hydradenitis suppurativa -cleanse with Hibiclens and rinse, apply Clindamycin 1%, cover with Maxorb and ABD pads, secure with Mesh underpants BID and PRN -offload areas as much as possible while in bed and in chair Nutritional support Wound Care to follow Recommend to follow up at [facility] Outpatient wound care center after hospital discharge. Any questions or concerns please secure chat [facility] wound/ostomy. Thank you for the consult! I personally [...] my own independent evaluation of this patient. [facility] Consult Pharmacy Managed Vancomycin Dosing Service [...] creatinine, and vancomycin levels interfaced automatically to [employer] and data has been analyzed and interpreted. [...] DATE: 09/13/24 TIME: 11:05 AM Melva Mcdonald [facility] Clinical Pharmacist Available via Secure Chat [facility] ECG 12-LEADon 09-13-2024 ECG 12-LEAD IMPRESSION: Sinus tachycardia Probable left atrial enlargement RSR' in V1 or V2, probably normal variant Electronically Signed On 09-13-2024 00:56:19 EST by Xiomara Kauffman [facility] ED Nursing Noteon 09-13-2024 ED Nursing Note Pt leaving [facility] ED at this time to go to . Belongings with EMS. Normal [facility] ED Nursing Note Report called to RN. RN informed vancomycin was stopped for transport. Normal [facility] ED Nursing Note [facility] ETA 8pm Normal [facility] ED Nursing Note [facility] transfer [facility] called - pt will go to [facility]- 5016 bed A. Number for report [phone] Normal [facility] ED Nursing Note [facility] Research Nurse called back. Per the Research Physician, the patient does not have to be transferred to [facility]. All that needs to be done is a Biologic Medication needs prescribed, and the patient can be admitted here. The patient is in an outpatient study. If any further questions, we can contact AMAN aHncock @ [phone]. Normal [facility] ED Nursing Note Patient is in a study at [facility]. He has provided a card for his physician and nurse in the study. I contacted the nurse Karissa and left a message @ [phone]. Patient is on the waiting list for and as of 0800 today there are still no rooms available at for this patient. Karissa called back and will contact her MD's over her and will get back with me. Normal [facility] Gas panel (BldV)Ordered By: Bárbara Carty on 09-13-2024 Anion gap 4 (BldV) [Moles/Vol] 10 mmol/L 10.0 - 25.0 mmol/L [facility] Base excess Calc (BldV) [Moles/Vol] 0.1 mmol/L -2.0 - 3.0 mmol/L [facility] Calcium.ionized (BldV) [Moles/Vol] 1.06 mmol/L Low 1.10 - 1.33 mmol/L [facility] Chloride (BldV) [Moles/Vol] 108 mmol/L High 98 - 107 mmol/L [facility] CO2 (BldV) [Partial pressure] 22 mm[Hg] Low [facility] Glucose [Mass/Vol] 149 mg/dL High 74 - 99 mg/dL [facility] HCO3 (Bld) [Moles/Vol] 21.1 mmol/L Low 22.0 - 26.0 mmol/L [facility] Hematocrit Est (Bld) [Volume fraction] 26 % Low 41.0 - 52.0 % [facility] Hemoglobin (Bld) [Mass/Vol] 8.6 g/dL Low 13.5 - 17.5 g/dL [facility] Inhaled oxygen concentration 98 % [facility] Interpretation and review of laboratory results Abnormal [facility] Lactate (BldV) [Moles/Vol] 1.7 mmol/L 0.4 - 2.0 mmol/L [facility] Oxygen (BldV) [Partial pressure] 142 mm[Hg] High [facility] Oxygen saturation in Venous blood 99 % High 45 - 75 % [facility] Oxyhemoglobin (BldV) [Mass fraction] 95.8 % High 45.0 - 75.0 % [facility] pH (BldV) 7.59 [pH] High 7.33 - 7.43 pH [facility] Potassium (BldV) [Moles/Vol] 4.5 mmol/L 3.5 - 5.3 mmol/L [facility] Sodium (BldV) [Moles/Vol] 135 mmol/L Low 136 - 145 mmol/L [facility] No Panel Informationon 09-13 P [place] 54 degrees [facility] NH Interval 126 ms [facility] QRS [place] 49 degrees [facility] QRSD Interval [facility] QT Interval 323 ms [facility] QTC Interval 423 ms [facility] T Wave [place] 53 degrees [facility] Sinus tachycardia Probable left atrial enlargement RSR' in V1 or V2, probably normal variant Electronically Signed On 09-13-2024 00:56:19 EST by Xiomara Kauffman CV Xiomara Urias MD - 09/13/2024 IMPRESSION: Sinus tachycardia Probable left atrial enlargement RSR' in V1 or V2, probably normal variant Electronically Signed On 09-13-2024 00:56:19 EST [facility] a[facility] Coag (PPP) Ordered By: Scarlet Wall on 09-13-2024 aPTT Coag (PPP) [Time] 29 s [facility] INR Coag (PPP) [Relative time] 1.2 {INR} High 0.9 - 1.1 [facility] Interpretation and review of laboratory results Abnormal [facility] PT Coag (PPP) [Time] 13.5 s High [facility] The APTT is no longer used for monitoring Unfractionated Heparin Therapy. For monitoring Heparin Therapy, use the Heparin Assay. [facility] Urinalysis complete W Reflex Culture panel (U)Ordered By: Elham Gomes on 09-13-2024 Appearance (U) Clear Clear [facility] Bilirubin (U) [Mass/Vol] Negative NEGATIVE [facility] Color (U) Light-Yellow Light-Yellow, Yellow, Dark-Yellow [facility] Glucose Auto test strip (U) [Mass/Vol] Normal Normal mg/dL [facility] Interpretation and review of laboratory results Abnormal [facility] Ketones (U) [Mass/Vol] Negative NEGAT SULEMA mg/dL [facility] Leukocyte esterase Auto test strip Ql (U) Negative NEGATIVE [facility] Nitrite Auto test strip Ql (U) Negative NEGATIVE [facility] pH (U) 7.5 [pH] 5.0, 5.5, 6.0, 6.5, 7.0, 7.5, 8.0 [facility] Protein (U) [Mass/Vol] 10 (TRACE) NEGAT SULEMA, 10 (TRACE), 20 (TRACE) mg/dL [facility] RBC (U) [#/Vol] 0.06 (1+) Abnormal NEGATIVE [facility] Specific gravity (U) [Rel density] 1.014 1.005 - 1.035 [facility] Urobilinogen (U) [Mass/Vol] Normal Normal mg/dL [facility] Urinalysis complete W Reflex Culture panel (U)on 09-13-2024 Interpretation and review of laboratory results Abnormal [facility] Mucus Auto (Urine sed) [#/Area] FEW Reference range not established. /LPF [facility] RBC Auto (Urine sed) [#/Area] 6-10 Abnormal NONE, 1-2, 3-5 /HPF [facility] WBC Auto (Urine sed) [#/Area] 1-5 1-5, NONE /HPF [facility] Vital signson 09-13-2024 Heart rate 103 /min bpm [facility] [employer] XR Chest Single viewon 09-13 Radiology Study observation (narrative) [facility] Work Phone: BASIC METABOLIC PANELon - Anion gap [Moles/Vol] 12 mmol/L Normal 3-13 [facility] Comment on above: Performed By: #### L [id number], [id number], [id number] ####Information Lead: BRIAN NUNEZ ([id number])[facility] (SBHLAB)[address] Calcium [Mass/Vol] 9.4 mg/dL Normal 8.4-10.2 [facility] Comment on above: Performed By: #### L AB15, [id number], [id number] ####Information Lead: BRIAN NUNEZ ([id number])[facility] (SBHLAB)[address] Chloride [Moles/Vol] 106 mmol/L Normal 98-107 [facility] Comment on above: Performed By: #### L AB15, [id number], [id number] ####Information Lead: BRIAN NUNEZ ([id number])[facility] (SB[facility])[address] [place] [address] [place] CO2 [Moles/Vol] 22 mmol/L Normal 22-29 [facility] Comment on above: Performed By: #### L AB15, [id number], [id number] ####Information Lead: BRIAN NUNEZ ([id number])[facility] (SB[facility])[address] [place] [address] [place] Creatinine [Mass/Vol] 1.48 mg/dL High 0.72-1.25 [facility] Comment on above: Performed By: #### Kamila BRANHAM15, [id number], [id number] ####Information Lead: BRIAN NUNEZ ([id number])[facility] ([facility] GLOMERULAR FILTRATION RATE ML/MIN/1.73 SQ M.PREDICTED 56.9 mL/min/1.73m*2 Low >60.0 [facility] Comment on above: Result Comment: Calc ulation based on the Chronic Kidney Disease Epidemiology Collaboration (CKD-EPI) equation refit without adjustment for race Performed By: #### Kamila JONES, [id number], [id number] ####Information Lead: BRIAN NUNEZ ([id number])[facility] ([facility])[address] Glucose [Mass/Vol] 113 mg/dL High 74-100 [facility] Comment on above: Performed By: #### Kamila JONES, [id number], [id number] ####Information Lead: BRIAN NUNEZ ([id number])[facility] ([facility])[address] Potassium [Moles/Vol] 4.9 mmol/L Normal 3.5-5.1 [facility] Comment on above: Result Comment: [facility] potassium values may be up to 0.5 mmol/L lower than serum values. Performed By: #### Kamila JONES, [id number], [id number] ####Information Lead: BRIAN NUNEZ ([id number])[facility] (HLAB)[address] [place] [address] [place] Sodium [Moles/Vol] 140 mmol/L Normal 136-145 [facility] Comment on above: Performed By: #### L AB15, [id number], [id number] ####Information Lead: BRIAN NUNEZ ([id number])[facility] ([facility])[address] [place] [address] [place] Urea nitrogen [Mass/Vol] 18 mg/dL Normal 9-23 [facility] Comment on above: Performed By: #### L AB15, [id number], [id number] ####Information Lead: BRIAN NUNEZ ([id number])[facility] (SBHLAB)[address] [place] [address] BLOOD CULTUREon 09-12-2024 Bacteria identified Cx Nom (Bld) BLOOD CULTURE Reference No growth at 5 days ORDER COMMENTS: Blood Collection Site: Left Arm [ S = SUSCEPTIBLE R = RESISTANT I = INTERMEDIATE S-DD = Susceptible-dose dependent NS = Non-susceptible NO = No Interpretation ] Normal [facility] Comment on above: Performed By: #### L [id number], [id number] #### Information Lead: JAZLYN JIMENEZ ([id number]) [facility] ([facility]) [address] [place] [address] Bacteria identified Cx Nom (Bld) BLOOD CULTURE Reference No growth at 5 days ORDER COMMENTS: Blood Collection Site: Right Arm [ S = SUSCEPTIBLE R = RESISTANT I = INTERMEDIATE S-DD = Susceptible-dose dependent NS = Non-susceptible NO = No Interpretation ] Normal [facility] Comment on above: Performed By: #### L [id number], [id number] #### Information Lead: JAZLYN JIMENEZ ([id number]) [facility] ([facility] [address] [place] [address] Basic metabolic 1998 panelon 09-12-2024 Anion gap [Moles/Vol] 12 mmol/L 3 - 13 mmol/L [facility] Calcium [Mass/Vol] 9.4 mg/dL 8.4 - 10. 2 mg/dL [facility] Chloride [Moles/Vol] 106 mmol/L 98 - 10 7 mmol/L [facility] CO2 [Moles/Vol] 22 mmol/L 22 - 29 mmol/L [facility] Creatinine [Mass/Vol] 1.48 mg/dL High 0.72 - 1.25 mg/dL [facility] GFR/1.73 sq M.predicted (S/P/Bld) [Vol rate/Area] 56.9 mL/min Low - PINF [facility] Comment on above: Calculation based on the Chronic Kidney Disease Epidemiology Collaboration (CKD-EPI) equation refit without adjustment for race Glucose [Mass/Vol] 113 mg/dL High 74 - 100 mg/dL [facility] Interpretation and review of laboratory results Abnormal [facility] Potassium [Moles/Vol] 4.9 mmol/L 3.5 - 5.1 mmol/L [facility] Comment on above: Plasma potassium jeri ues may be up to 0.5 mmol/L lower than serum values. Sodium [Moles/Vol] 140 mmol/L 136 - 145 mmol/L [facility] Urea nitrogen [Mass/Vol] 18 mg/dL 9 - 23 mg/d L [facility] CBC W Auto Differential pane l (Bld)on 09-12-2024 Basophils (Bld) [#/Vol] 0 10*3/uL 0.0 - 0.2 10*3/uL [facility] Basophils/100 WBC (Bld) 0.2 % 0.0 - 2.0 % [facility] Eosinophils (Bld) [#/Vol] 0.4 10*3/uL 0.0 - 0.5 10*3/uL [facility] Eosinophils/100 WBC (Bld) 2 % 0.0 - 6.0 % [facility] Erythrocyte distribution width (RBC) [Ratio] 17 % High 11.5 - 15.0 % [facility] Hematocrit (Bld) [Volume fraction] 28.1 % Low 40.0 - 52.0 % [facility] Hemoglobin (Bld) [Mass/Vol] 8.9 g/dL Low 13.0 - 18.0 g/dL [facility] Immature granulocytes (Bld) [#/Vol] 0.1 10*3/uL High NINF - 0.1 10*3/uL [facility] Immature granulocytes/100 WBC (Bld) 0.7 % 0.0 - 2.0 % [facility] Interpretation and review of laboratory results Abnormal [facility] Lymphocytes (Bld) [#/Vol] 2.1 10*3/uL 1.0 - 4.3 10*3/uL [facility] Lymphocytes/100 WBC (Bld) 12 % Low 15.0 - 45.0 % [facility] MCH (RBC) [Entitic mass] 27.9 pg 26. 0 - 34.0 pg [facility] MCHC (RBC) [Mass/Vol] 31.7 % 30.5 - 36.0 % [facility] MCV (RBC) [Entitic vol] 88.1 fL 77.0 - 99.0 fL [facility] Monocytes (Bld) [#/Vol] 1.5 10*3/uL High 0.0 - 0.9 10*3/uL [facility] Monocytes/100 WBC (Bld) 8.1 % 5.0 - 13.0 % [facility] Neutrophils (Bld) [#/Vol] 13.7 10*3/uL High 1.8 - 7.5 10*3/uL [facility] Neutrophils/100 WBC (Bld) 77 % 38.0 - 82.0 % [facility] Nucleated RBC/100 WBC (Bld) [Ratio] 0 % [facility] Platelet mean volume (Bld) [Entitic vol] 8.6 fL Low 9.0 - 12.7 fL [facility] Platelets (Bld) [#/Vol] 568 10*3/uL High 140 - 440 10*3/uL [facility] RBC (Bld) [#/Vol] 3.19 10*6/uL Low 4.40 - 5.9 0 10*6/uL [facility] WBC (Bld) [#/Vol] 17.8 10*3/uL High 3.6 - 10.7 10*3/uL [facility] CBC WITH AUTO DIFFERENTIALon 09-12-2024 Basophils (Bld) [#/Vol] 0.0 10*3/uL Normal 0.0-0.2 [facility] Comment on above: Performed By: #### L [id number] ####Information Lead: BRIAN NUNEZ ([id number])[facility] ([facility])[address] [place] [address] Basophils/100 WBC (Bld) 0.2 % Normal 0.0-2.0 S [facility] Comment on above: Performed By: #### L [id number] ####Information Lead: BRIAN NUNEZ ([id number])[facility] (SB[facility])[address] [place] [address] Eosinophils (Bld) [#/Vol] 0.4 10*3/uL Normal 0.0-0.5 [facility] Comment on above: Performed By: #### L [id number] ####Information Lead: BRIAN ALVAREZBharathiFANNY ([id number])[facility] (SBHLAB)[address] Eosinophils/100 WBC (Bld) 2.0 % Normal 0.0-6.0 [facility] Comment on above: Performed By: #### L [id number] ####Information Lead: BRIAN GAYFANNY ([id number])[facility] ([facility])[address] Erythrocyte distribution width (RBC) [Ratio] 17.0 % High 11.5-15.0 [facility] Comment on above: Performed By: #### L [id number] ####Information Lead: BRIAN ALVAREZCHIKI ([id number])[facility] ([facility])[address] [place] [address] Hematocrit (Bld) [Volume fraction] 28.1 % Low 40.0-52.0 [facility] Comment on above: Performed By: #### L [id number] ####Information Lead: BRIAN ENRIQUE ([id number])[facility] ([facility])[address] Hemoglobin (Bld) [Mass/Vol] 8.9 g/dL Low 13.0-18.0 [facility] Comment on above: Performed By: #### L [id number] ####Information Lead: BRIAN GAYFANNY ([id number])[facility] (SB[facility])[address] IMMATURE GRANS % 0.7 % Normal 0.0-2.0 [facility] Comment on above: Performed By: #### L [id number] ####Information Lead: BRIAN GAYFANNY ([id number])[facility] ([facility])[address] IMMATURE GRANS ABSOLUTE 0.1 10*3/uL High <0.1 [facility] Comment on above: Performed By: #### L [id number] ####Information Lead: BRIAN ALVAREZBharathiFANNY ([id number])[facility] ROJASN (SBHLAB)[address] Lymphocytes (Bld) [#/Vol] 2.1 10*3/uL Normal 1.0-4.3 [facility] Comment on above: Performed By: #### L [id number] ####Information Lead: BRIAN ENRIQUE ([id number])[facility]ENBEIGHJulisa RYANREHOB[facility] MCKIN[facility] C[facility] SERVICESN (SBHLAB)[address] Lymphocytes/100 WBC (Bld) 12.0 % Low 15.0-45.0 [facility] Comment on above: Performed By: #### L [id number] ####Information Lead: BRIAN ALVAREZCHIKI ([id number])[facility]ENBEIGHJulisa ROJASN (SBHLAB)[address] [place] [address] MCH (RBC) [Entitic mass] 27.9 pg Normal 26.0-34.0 [facility] Comment on above: Performed By: #### L [id number] ####Information Lead: BRIAN ENRIQUE ([id number])[facility]IGHJulisa ROJASN (SBHLAB)[address] MCHC 31.7 % Normal 30.5-36.0 [facility] Comment on above: Performed By: #### L [id number] ####Information Lead: BRIAN GAYFANNY ([id number])[facility]IGHJulisa R[facility] SERVICESN (SBHLAB)[address] [place] [address] MCV (RBC) [Entitic vol] 88.1 fL Normal 77.0-99.0 [facility] Comment on above: Performed By: #### L [id number] ####Information Lead: BRIAN GAYFANNY ([id number])[facility]IGHJulisa R[facility] SERVICESN (SBHLAB)[address] Monocytes (Bld) [#/Vol] 1.5 10*3/uL High 0.0-0.9 [facility] Comment on above: Performed By: #### L [id number] ####Information Lead: BRIAN NUNEZ ([id number])[facility] (SB[facility])[address] Monocytes/100 WBC (Bld) 8.1 % Normal 5.0-13.0 [facility] Comment on above: Performed By: #### L [id number] ####Information Lead: BRIAN NUNEZ ([id number])[facility]IGHA [place] (SBHLAB)[address] NEUTROPHILS ABSOLUTE 13.7 10*3/uL High 1.8-7.5 [facility] Comment on above: Performed By: #### L [id number] ####Information Lead: BRIAN NUNEZ ([id number])[facility] (SBHLAB)[address] Neutrophils/100 WBC (Bld) 77.0 % Normal 38.0-82.0 [facility] Comment on above: Performed By: #### L [id number] ####Information Lead: BRIAN NUNEZ ([id number])[facility] [place] (SBHLAB)[address] NRBC 0.0 /100 WBCs Normal 0.0-2.0 [facility] Comment on above: Performed By: #### L [id number] ####Information Lead: BRIAN NUNEZ ([id number])[facility] [place] (SBHLAB)[address] Platelet mean volume (Bld) [Entitic vol] 8.6 fL Low 9.0-12.7 [facility] Comment on above: Performed By: #### L [id number] ####Information Lead: BRIAN NUNEZ ([id number])[facility]HA [place] (SBHLAB)[address] [place] [address] [place] Platelets (Bld) [#/Vol] 568 10*3/uL High 140-440 [facility] Comment on above: Performed By: #### L [id number] ####Information Lead: BRIAN NUNEZ ([id number])[facility]IGHJulisa BISWAS (SBHLAB)[address] RBC (Bld) [#/Vol] 3.19 10*6/uL Low 4.40-5.90 [facility] Comment on above: Performed By: #### L [id number] ####Information Lead: BRIAN NUNEZ ([id number])[facility]IGHJulisa [facility] (SBHLAB)[address] WBC (Bld) [#/Vol] 17.8 10*3/uL High 3.6-10.7 [facility] Comment on above: Performed By: #### L [id number] ####Information Lead: BRIAN NUNEZ ([id number])[facility]IGHJulisa [facility] (SBHLAB)[address] [place] [address] CT ABDOMEN PELVIS W CONTRAST on 09-12-2024 [...] abscess or signs of necrotizing infection. Normal [facility] CT Abdomen and Pelvis W cont [...] DO Electronically Signed Date/Time: 09/12/2024 9:48 PM [facility] Patient Name: KEVAN [...] No cortical irregularity of the left femur. [facility] Raisa Eaton DO - 09/12/2024 Patient Name: KEVAN LA : 1975 [id number] Exam Date/Time: 09/12/2024 21:13 Procedure: CT ABDOMEN [...] Electronically Signed Date/Time: 09/12/2024 9:48 PM EST [facility] Radiology Study observation (narrative) [facility] alth CT Abdomen and Pelvis W cont rast IVOrdered By: Raisa Eaton on 09-12-2024 [facility] Work Phone: CULTURE ANAEROBICon 09-12-20 24 CULTURE ANAEROBIC ANAEROBIC CULTURE (A) Reference BACTEROIDES FRAGILIS GROUP Moderate Bacteroides fragilis group (A) [ S = SUSCEPTIBLE R = RESISTANT I = INTERMEDIATE S-DD = Susceptible-dose dependent NS = Non-susceptible NO = No Interpretation ] Normal [facility] Comment on above: Performed By: #### L [id number], [id number] #### Information Lead: JAZLYN JIMENEZ ([id number]) [facility] ([facility]) [address] [place] [address] CULTURE, AEROBIC BACTERIA WI TH GRAM STAINon [...] Non-susceptible NO = No Interpretation ] Normal [facility] Comment on above: Performed By: #### L [id number], [id number] #### Information Lead: JAZLYN JIMENEZ ([id number]) [facility] ([facility]) [address] ED Provider Noteon ED Provider Note [facility] ED EMERGENCY DEPARTMENT ENCOUNTER Pt [...] Procedure Abnormality Status --------- ------ Culture, Aerobic Bacteri...[[id number] ] In process Anaerobic culture[[id number]] In process Please view results for these [...] mg (2,000 mg IntraVENous New Bag 09/12/24 224) sodium chloride 0.9 % bolus 1,000 mL (0 mL IntraVENous Stopped 09/12/24 2159) piperacillin-tazobac daley (Zosyn) 4,500 mg in sodium chloride 0.9 % 100 mL IVPB Mini-Bag Plus (0 mg IntraVENou (more content not included)... Normal [facility] HIGH SENSITIVITY TROPONIN, S ERIAL BASELINEon 09-12-2024 TROPONIN HIGH SENSITIVITY BASELINE 4 ng/L Normal <=35 [facility] Comment on above: Performed By: #### L [id number], [id number], [id number] ####Information Lead: BRIAN NUNEZ ([id number])[facility] (SBHLAB)[address] LACTIC ACID WITH REFLEXon Lactate [Moles/Vol] 2.0 mmol/L Normal 0.5-2.2 [facility] Comment on above: Performed By: #### L [id number] ####Information Lead: BRIAN NUNEZ ([id number])[facility] (SBHLAB)[address] Laboratory - Chemistry and C hemistry - challengeon 09-12-2024 Lactate [Moles/Vol] 2 mmol/L 0.5 - 2. 2 mmol/L [facility] NT PRO BNPon 09-12-2024 Natriuretic peptide B (Bld) [Mass/Vol] 589 pg/mL High <125 [facility] Comment on above: Performed By: #### L [id number], [id number], [id number] ####Information Lead: BRIAN NUNEZ ([id number])[facility] (SBHLAB)[address] [place] [address] Natriuretic peptide B [Mass/ Vol]on 09-12-2024 Interpretation and review of laboratory results Abnormal [facility] Natriuretic peptide B (Bld) [Mass/Vol] 589 pg/mL High NINF - 125 pg/mL [facility] No Panel Informationon 09-12 Interpretation and review of laboratory results Normal [facility] Troponin HS, Serial Baseline 4 ng/L NINF - 35 ng/L [facility] Interpretation and review of laboratory results Normal [facility] Progress Noteon 09-12-2024 Progress Note Culture reviewed. Awaiting sensitivity results. Patient was seen at [place] given IV antibiotics broad-spectrum coverage and transferred to hospital for further management Normal [facility] XR Chest Single viewon 09-12 1. No acute findings. Report Dictated on Electronically Signed By: Elias Hutson MD Electronically Signed Date/Time: 09/12/2024 8:28 PM [facility] Patient Name: KEVAN LA : 1975 [...] or apparent pneumothorax. Bony thorax grossly unremarkable. [facility] Elias Hutson MD - 09/12/2024 [...] Electronically Signed Date/Time: 09/12/2024 8:28 PM EST [facility] Radiology Study observation (narrative) [facility] alth XR Chest Single viewOrdered By: Elias Hutson on 09-12-2024 [facility] [employer] Work Phone: ECG 12-LEADon 02-29-2024 ECG 12-LEAD Ventricular Rate 60 Atrial Rate 60 P-R Interval 146 QRS Duration 92 Q-T Interval 410 QTC Calculation(Bazett) 410 P Greenock 55 R Greenock 41 T [place] 55 QRS Count 10 Q Onset 212 P Onset 139 P Offset 195 T Offset 417 QTC Fredericia 410 Diagnosis Normal sinus rhythm Normal ECG When compared with ECG of 23-NOV-2023 11:14, No significant change was found Confirmed by Eric Mccall ([id number]) on 03/01/2024 4:34:58 PM Normal [facility] ECG 12 lead (Ancillary Perfo rmed)Ordered By: Beto Casas on 11-24-2023 Atrial Rate 58 BPM [facility] Work Phone: [phone] P Greenock 59 degrees [facility] Work Phone: [phone] P Offset 198 ms [facility] Work Phone: [phone] P Onset 141 ms [facility] Work Phone: [phone] NH Interval 150 ms [facility] Work Phone: [phone] Q Onset 216 ms [facility] Work Phone: [phone] QRS Count 10 beats [facility] Work Phone: [phone] QRS Duration 98 ms [facility] Work Phone: [phone] QT Interval 402 ms [facility] Work Phone: [phone] QTC Calculation(Bazett) 394 ms U [facility] Work Phone: [phone] QTC Fredericia 397 ms [facility] Work Phone: [phone] R Green[place] 54 degrees [facility] Work Phone: [phone] T [place] 65 degrees [facility] Work Phone: [phone] T Offset 417 ms [facility] Work Phone: [phone] Ventricular Rate 58 BPM [facility] Work Phone: [phone] [facility] Work Phone: [phone] ECG 12 lead (Ancillary Perfo rmed)on 11-24-2023 Sinus bradycardia Otherwise normal ECG No previous ECGs available Confirmed by Beto Casas ([id number]) on 11/24/2023 1:09:15 PM Beto William MD - 11/24/2023 Sinus bradycardia Otherwise normal ECG No previous ECGs available Confirmed by Beto Casas ([id number]) on 11/24/2023 1:09:15 PM [facility] Work Phone: QUANTIFERON - PLUS RHODES TUBE on 04-10-2023 Gamma interferon background IA Qn (Bld) 0.02 IU/mL [facility] [employer] QUANTIFERON - PLUS GREEN TUB Yunior 04-10-2023 TB1 Antigen Result 0.05 IU/mL [facility] QUANTIFERON - PLUS PURPLE TU BEon 04-10-2023 M. tuberculosis stim IFN-g by CD4+ CD8+ T-cells corrected for background Qn (Bld) 0.01 IU/mL [facility] M. tuberculosis stim IFN-g by CD4+ T-cells corrected for background Qn (Bld) 0.03 [IU]/mL IU/mL [facility] M. tuberculosis tuberculin stim IFN-g Ql (Bld) Negative Negative [facility] Mitogen Result IU/mL [facility] Mitogen stimulated gamma interferon corrected for background Qn (Bld) IU/mL [facility] Interferon gamma release is measured for [...] NTM (M. kansasii, M. szulgai,or M. marinum). [facility] QUANTIFERON - PLUS YELLOW TU BEon 04-10-2023 TB2 Antigen Value 0.03 IU/mL [facility] Bilirubin.indirect [Mass/Vol ]on 04-08-2023 Bilirubin.conjugated [Mass/Vol] 0.0 mg/dL 0.0 - 0.3 mg/dL [facility] Interpretation and review of laboratory results Normal [facility] CBC W Auto Differential pane l (Bld)Ordered By: Smitha Mcknight on 04-08-2023 Basophils (Bld) [#/Vol] 0.1 10*3/uL 0.0 - 0.2 10*3/uL [facility] Basophils/100 WBC (Bld) 0.7 % 0.0 - 2.0 % [facility] Eosinophils (Bld) [#/Vol] 0.3 10*3/uL 0.0 - 0.5 10*3/uL [facility] Eosinophils/100 WBC (Bld) 2.6 % 1.0 - 6.0 % [facility] Erythrocyte distribution width (RBC) [Ratio] 15.0 % High 11.5 - 14.5 % [facility] Hematocrit (Bld) [Volume fraction] 38.9 % Low 40.0 - 52.0 % [facility] Hemoglobin (Bld) [Mass/Vol] 12.8 g/dL Low 13.0 - 18.0 g/dL [facility] Immature granulocytes (Bld) [#/Vol] 0.0 10*3/uL NINF - 0.0 10*3/uL [facility] Immature granulocytes/100 WBC (Bld) 0.3 % High NINF - 0.0 % [facility] Interpretation and review of laboratory results Abnormal [facility] Lymphocytes (Bld) [#/Vol] 3.0 10*3/uL 1.0 - 4.3 10*3/uL [facility] Lymphocytes/100 WBC (Bld) 23.6 % 20.0 - 40.0 % [facility] MCH (RBC) [Entitic mass] 28.7 pg 26. 0 - 34.0 pg [facility] MCHC (RBC) [Mass/Vol] 32.9 % 32.0 - 36.0 % [facility] MCV (RBC) [Entitic vol] 87.2 fL 80.0 - 98.0 fL [facility] Monocytes (Bld) [#/Vol] 1.2 10*3/uL High 0.0 - 0.8 10*3/uL [facility] Monocytes/100 WBC (Bld) 9.1 % 2.0 - 10.0 % [facility] Neutrophils (Bld) [#/Vol] 8.1 10*3/uL High 1.8 - 7.0 10*3/uL [facility] Neutrophils/100 WBC (Bld) 63.7 % 40.0 - 80.0 % [facility] Platelet mean volume (Bld) [Entitic vol] 8.7 fL 7.4 - 12.4 fL [facility] Comment on above: MPV is a calculated measurement using platelet volume ratio Platelets (Bld) [#/Vol] 415 10*3/uL 140 - 440 10*3/uL [facility] RBC (Bld) [#/Vol] 4.46 10*6/uL 4.40 - 5.9 0 10*6/uL [facility] WBC (Bld) [#/Vol] 12.7 10*3/uL High 3.6 - 10.7 10*3/uL [facility] Comprehensive metabolic 1998 panelon 04-08-2023 Albumin [Mass/Vol] 3.9 g/dL 3.5 - 5.0 g/dL [facility] ALP [Catalytic activity/Vol] 95 U/L 38 - 126 U/L [facility] ALT [Catalytic activity/Vol] 16 U/L 0 - 49 U/L [facility] Anion gap [Moles/Vol] 5 mmol/L 3 - 13 mmol/L [facility] AST [Catalytic activity/Vol] 24 U/L 15 - 46 U/L [facility] Bilirubin [Mass/Vol] 0.3 mg/dL 0.2 - 1 .3 mg/dL [facility] Calcium [Mass/Vol] 8.8 mg/dL 8.4 - 10. 4 mg/dL [facility] Chloride [Moles/Vol] 108 mmol/L High 98 - 10 7 mmol/L [facility] CO2 [Moles/Vol] 28 mmol/L 22 - 30 mmol/L [facility] Creatinine [Mass/Vol] 1.20 mg/dL 0.66 - 1.25 mg/dL [facility] GFR/1.73 sq M.predicted MDRD (S/P/Bld) [Vol rate/Area] 74.1 mL/min/{1.73_m2} - PINF [facility] Comment on above: Calculation based on the Chronic Kidney Disease Epidemiology Collaboration (CKD-EPI) equation refit without adjustment for race Glucose [Mass/Vol] 110 mg/dL High 70 - 100 mg/dL [facility] [employer] Interpretation and review of laboratory results Abnormal [facility] Potassium [Moles/Vol] 4.3 mmol/L 3.5 - 5.1 mmol/L [facility] Protein [Mass/Vol] 8.3 g/dL High 6.3 - 8.2 g/dL [facility] Sodium [Moles/Vol] 140 mmol/L 135 - 145 mmol/L [facility] Urea nitrogen [Mass/Vol] 14 mg/dL 9 - 20 mg/d L [facility] [employer] No Panel Informationon 04-08 [facility] Vital Signs Date Time Vital Sign Value Performing Clinician Facility 03-24-2025 11:14-0400 Diastolic blood pressure 60 mm[Hg] Kris RUIZ-C Work Phone: [facility] 03-24-2025 11:14-0400 Heart rate 68 /min Kris RUIZ-C Work Phone: [facility] 03-24-2025 11:14-0400 Systolic blood pressure 101 mm[Hg] Kris Ren PA-C Work Phone: [facility] 03-10-2025 14:54-0400 Body temperature 96.8 [degF] Astrid Hawley SUPERVISOR [employer] Work Phone: [facility] 03-10-2025 14:54-0400 Diastolic blood pressure 51 mm[Hg] Astrid Hawley SUPERVISOR [employer]IST Work Phone: [facility] 03-10-2025 14:54-0400 Heart rate 47 /min Astrid Hawley SUPERVISOR [employer]IST Work Phone: [facility] 03-10-2025 14:54-0400 Respiratory rate 14 /min Astrid Hawley SUPERVISOR [employer]IST Work Phone: [facility] 03-10-2025 14:54-0400 SaO2% (BldA) [Mass fraction] 100 % Astrid Hawley SUPERVISOR [employer]IST Work Phone: [facility] 03-10-2025 14:54-0400 Systolic blood pressure 93 mm[Hg] Astrid Hawley SUPERVISOR [employer]IST Work Phone: [facility] 03-03-2025 15:38-0400 Diastolic blood pressure 55 mm[Hg] Dean Jalloh MD Work Phone: [facility] 03-03-2025 15:38-0400 Heart rate 55 /min Dean Jalloh MD Work Phone: [facility] 03-03-2025 15:38-0400 Respiratory rate 16 /min Dean Jalloh MD Work Phone: [facility] 03-03-2025 15:38-0400 SaO2% (BldA) [Mass fraction] 98 % Dean Jalloh MD Work Phone: [facility] 03-03-2025 15:38-0400 Systolic blood pressure 98 mm[Hg] Dean Jalloh MD Work Phone: [facility] 12-24-2024 09:31-0400 Body temperature 98.01 [degF] Mejgon Martina DO Work Phone: [facility] [employer] 12-24-2024 09:31-0400 Diastolic blood pressure 45 mm[Hg] Mejgon Martina DO Work Phone: [facility] [employer] 12-24-2024 09:31-0400 Heart rate 83 /min Mejgon Martina DO Work Phone: [facility] [employer] 12-24-2024 09:31-0400 Respiratory rate 15 /min Mejgon Martina DO Work Phone: [facility] [employer] 12-24-2024 09:31-0400 SaO2% (BldA) [Mass fraction] 97 % Mejgon Martina DO Work Phone: [facility] [employer] 12-24-2024 09:31-0400 Systolic blood pressure 95 mm[Hg] Mejgon Martina DO Work Phone: [facility] [employer] 12-23-2024 19:23-0400 Body height 200.7 cm Levi Mack DO Work Phone: [facility] [employer] 12-23-2024 19:23-0400 Body mass index (BMI) [Ratio] 22.34 kg/m2 Levi Mack DO Work Phone: [facility] [employer] 12-23-2024 19:23-0400 Body weight 90 kg Levi Mack DO Work Phone: [facility] [employer] 12-20-2024 10:55-0400 Body height 196.7 cm Sreedhar Jiang MD Work Phone: [facility] 12-20-2024 10:55-0400 Body mass index (BMI) [Ratio] 23.31 kg/m2 Sreedhar Jaing MD Work Phone: [facility] 12-20-2024 10:55-0400 Body temperature 97.9 [degF] Sreedhar Jiang MD Work Phone: [facility] 12-20-2024 10:55-0400 Body weight 90.2 kg Sreedhar Jiang MD Work Phone: [facility] 12-20-2024 10:55-0400 Diastolic blood pressure 57 mm[Hg] Sreedhar Jiang MD Work Phone: [facility] 12-20-2024 10:55-0400 Heart rate 74 /min Sreedhar Jiang MD Work Phone: [facility] 12-20-2024 10:55-0400 Respiratory rate 16 /min Sreedhar Jiang MD Work Phone: [facility] 12-20-2024 10:55-0400 SaO2% (BldA) [Mass fraction] 96 % Sreedhar Jiang MD Work Phone: [facility] 12-20-2024 10:55-0400 Systolic blood pressure 99 mm[Hg] Sreedhar Jiang MD Work Phone: [facility] 12-19-2024 07:29-0400 Body temperature 97 [degF] Mine Nunez MD Work Phone: [facility] 12-19-2024 07:29-0400 Diastolic blood pressure 62 mm[Hg] Mine Nunez MD Work Phone: [facility] 12-19-2024 07:29-0400 Heart rate 83 /min Mine Nunez MD Work Phone: [facility] 12-19-2024 07:29-0400 Respiratory rate 16 /min Mine Nunez MD Work Phone: [facility] 12-19-2024 07:29-0400 SaO2% (BldA) [Mass fraction] 96 % Mine Nunez MD Work Phone: [facility] 12-19-2024 07:29-0400 Systolic blood pressure 102 mm[Hg] Mine Nunez MD Work Phone: [facility] 12-07-2024 16:58-0400 Body height 200.6 cm Mine Nunez MD Work Phone: [facility] 12-07-2024 16:58-0400 Body mass index (BMI) [Ratio] 22.22 kg/m2 Mine Nunez MD Work Phone: [facility] 12-07-2024 16:58-0400 Body weight 89.4 kg Mine Nunez MD Work Phone: [facility] 12-07-2024 13:22-0400 Body temperature 98.71 [degF] Fer Hollins MD Work Phone: [facility] 12-07-2024 13:22-0400 Diastolic blood pressure 57 mm[Hg] Fer Hollins MD Work Phone: [facility] [employer] 12-07-2024 13:22-0400 Heart rate 60 /min Fer Hollins MD Work Phone: [facility] [employer] 12-07-2024 13:22-0400 Respiratory rate 16 /min Fer Hollins MD Work Phone: [facility] [employer] 12-07-2024 13:22-0400 SaO2% (BldA) [Mass fraction] 100 % Fer Hollins MD Work Phone: [facility] [employer] 12-07-2024 13:22-0400 Systolic blood pressure 89 mm[Hg] Fer Hollins MD Work Phone: [facility] [employer] 12-06-2024 11:09-0400 Body height 200.7 cm Fer Hollins MD Work Phone: [facility] [employer] 12-06-2024 11:09-0400 Body mass index (BMI) [Ratio] 22.19 kg/m2 Fer Hollins MD Work Phone: [facility] [employer] 12-06-2024 11:09-0400 Body weight 89.36 kg Fer Hollins MD Work Phone: [facility] [employer] 11-27-2024 13:43-0400 Body temperature 97.7 [degF] Baldomero Powell MD Work Phone: [facility] 11-27-2024 13:43-0400 Diastolic blood pressure 61 mm[Hg] Baldomero Powell MD Work Phone: [facility] 11-27-2024 13:43-0400 Heart rate 74 /min Baldomero Powell MD Work Phone: [facility] 11-27-2024 13:43-0400 SaO2% (BldA) [Mass fraction] 98 % Baldomero Powell MD Work Phone: [facility] 11-27-2024 13:43-0400 Systolic blood pressure 105 mm[Hg] Baldomero Powell MD Work Phone: [facility] 11-27-2024 05:19-0400 Respiratory rate 17 /min Baldomero Powell MD Work Phone: [facility] 11-13-2024 17:26-0500 Body temperature 37 Baldomero Powell MD Work Phone: [facility] 11-11-2024 09:42-0500 Body mass index (BMI) [Ratio] 25.93 kg/m2 Baldomero Powell MD Work Phone: [facility] 11-11-2024 09:42-0500 Body weight 104.33 kg Baldomero Powell MD Work Phone: [facility] 11-10-2024 04:05-0500 Body height 200.6 cm Baldomero oPwell MD Work Phone: [facility] 11-09-2024 17:02-0500 Body temperature 98.01 [degF] Fer Kennedy MD Work Phone: [employer] 11-09-2024 17:02-0500 Diastolic blood pressure 55 mm[Hg] Fer Kennedy MD Work Phone: [employer] 11-09-2024 17:02-0500 Heart rate 63 /min Fer Kennedy MD Work Phone: [employer] 11-09-2024 17:02-0500 Respiratory rate 16 /min Fer Kennedy MD Work Phone: [employer] 11-09-2024 17:02-0500 SaO2% (BldA) [Mass fraction] 97 % Fer Kennedy MD Work Phone: [employer] 11-09-2024 17:02-0500 Systolic blood pressure 99 mm[Hg] Fer Kennedy MD Work Phone: [employer] 11-09-2024 08:12-0500 Body height 200.7 cm Fer Kennedy MD Work Phone: [employer] 11-09-2024 08:12-0500 Body mass index (BMI) [Ratio] 21.52 kg/m2 Fer Kennedy MD Work Phone: [employer] 11-09-2024 08:12-0500 Body weight 86.64 kg Fer Kennedy MD Work Phone: [facility] Comment on above: pt states [facility] this was his current weight 10-23-2024 03:44-0500 Body temperature 98.2 [degF] Kishore Gutierrez MD Work Phone: [facility] 10-23-2024 03:44-0500 Diastolic blood pressure 54 mm[Hg] Kishore Gutierrez MD Work Phone: [facility] 10-23-2024 03:44-0500 Heart rate 74 /min Kishore Gutierrez MD Work Phone: [facility] 10-23-2024 03:44-0500 Respiratory rate 17 /min Kishore Gutierrez MD Work Phone: [facility] 10-23-2024 03:44-0500 SaO2% (BldA) [Mass fraction] 98 % Kishore Gutierrez MD Work Phone: [facility] 10-23-2024 03:44-0500 Systolic blood pressure 103 mm[Hg] Kishore Gutierrez MD Work Phone: [facility] 10-13-2024 12:12-0500 Body temperature 37 Kishore Gutierrez MD Work Phone: [facility] 10-13-2024 12:08-0500 Body temperature 37 Kishore Gutierrez MD Work Phone: [facility] 10-13-2024 12:08-0500 SaO2% (BldA) [Mass fraction] 95 % Kishore Gutierrez MD Work Phone: [facility] 10-11-2024 10:15-0500 Body height 200.7 cm Kishore Gutierrez MD Work Phone: [facility] 10-11-2024 10:15-0500 Body mass index (BMI) [Ratio] 25.01 kg/m2 Kishore Gutierrez MD Work Phone: [facility] 10-11-2024 10:15-0500 Body weight 100.7 kg Kishore Gutierrez MD Work Phone: [facility] 10-10-2024 16:24-0500 Body temperature 37 Kishore Gutierrez MD Work Phone: [facility] 09-17-2024 08:06-0500 Body temperature 97 [degF] Ankit Nino MD Work Phone: [facility] 09-17-2024 08:06-0500 Diastolic blood pressure 56 mm[Hg] Ankit Nino MD Work Phone: [facility] 09-17-2024 08:06-0500 Heart rate 66 /min Ankit Nino MD Work Phone: [facility] 09-17-2024 08:06-0500 Respiratory rate 17 /min Ankit Nino MD Work Phone: [facility] 09-17-2024 08:06-0500 SaO2% (BldA) [Mass fraction] 96 % Ankit Nino MD Work Phone: [facility] 09-17-2024 08:06-0500 Systolic blood pressure 103 mm[Hg] Ankit Nino MD Work Phone: [facility] 09-13-2024 23:47-0500 Body temperature 37 Ankit Nino MD Work Phone: [facility] 09-13-2024 21:41-0500 Body height 200.7 cm Ankit Nino MD Work Phone: [facility] 09-13-2024 21:41-0500 Body mass index (BMI) [Ratio] 25.02 kg/m2 Ankit Nino MD Work Phone: [facility] 09-13-2024 21:41-0500 Body weight 100.8 kg Ankit Nino MD Work Phone: [facility] 09-13-2024 19:32-0500 Body temperature 100.6 [degF] Xiomara Kauffman MD Work Phone: [employer] 09-13-2024 19:32-0500 Diastolic blood pressure 63 mm[Hg] Xiomara Kauffman MD Work Phone: [employer] 09-13-2024 19:32-0500 Heart rate 90 /min Xiomara Kauffman MD Work Phone: [employer] 09-13-2024 19:32-0500 Respiratory rate 16 /min Xiomara Kauffman MD Work Phone: [employer] 09-13-2024 19:32-0500 SaO2% (BldA) [Mass fraction] 94 % Xiomara Kauffman MD Work Phone: [employer] 09-13-2024 19:32-0500 Systolic blood pressure 95 mm[Hg] Xiomara Kauffman MD Work Phone: [employer] 09-13-2024 11:29-0500 Body height 200.7 cm Xiomara Kauffman MD Work Phone: [employer] 09-13-2024 11:29-0500 Body mass index (BMI) [Ratio] 25.91 kg/m2 Xiomara Kauffman MD Work Phone: [employer] 09-13-2024 11:29-0500 Body weight 104.33 kg Xiomara Kauffman MD Work Phone: [facility] [employer] Encounters Encounter Date Encounter Type Care Provider Facility Start: 04-24-2025 ambulatory Julio Harris ity:[facility] Start: 04-16-2025 ambulatory [facility] Start: 04-07-2025 End: 04-07-2025 Office outpatient visit 25 minutes Astrid Hawley SUPERVISOR RECORD PRESS-PAYROLL SPECIALIST Work Phone: [facility] Comment on above: Constipation due to pain medication therapy (Primary Dx); Other insomnia; Cancer associated pain Start: 04-07-2025 End: 04-07-[address] [facility] Start: 03-24-2025 End: 03-24-2025 ambulatory NO ASSIGNED PCP GENERIC PROVIDER [facility] Start: 03-24-2025 End: 03-24-2025 Office outpatient visit 15 minutes Kris Ren PA-C Work Phone: [facility] Comment on above: Wound of gluteal gregg ft, left, subsequent encounter (Primary Dx) Start: 03-18-2025 End: 03-18-2025 ambulatory Julio SAMANIEGO -[facility] [address] Start: 03-18-2025 End: 03-18-2025 Departed Referred Julio Nolasco -[facility] [address] Start: 03-18-2025 End: 03-18-2025 ambulatory Julio SAMANIEGO Facility:[facility] Start: 03-12-2025 ambulatory Julio SAMANIEGO Facil ity:[facility] Start: 03-12-2025 Registered Referred Julio [facility] [address] Start: 03-11-2025 End: 03-11-2025 Postop follow up visit related to original px Kong Mina MD Work Phone: [facility] Comment on above: Squamous cell carcin pasha of left thigh (Primary Dx) Start: 03-11-2025 End: 03-11-[address] [facility] Start: 03-10-2025 End: 03-10-[address] [facility] Start: 03-10-2025 End: 03-10-2025 Office outpatient visit 40 minutes Astrid Hawley APRN-PAYROLL SPECIALIST Work Phone: [facility] Comment on above: Encounter for monito ring opioid maintenance therapy (Primary Dx); Cancer associated pain; Squamous cell carcinoma of left thigh; Abscess; Other insomnia; Constipation due to pain medication therapy Start: 03-03-2025 End: 03-03-2025 ambulatory DEAN [facility] Start: 03-03-2025 End: 03-03-2025 Postop follow up visit related to original px Dean Jalloh MD Work Phone: [facility] Comment on above: Wound of thigh (Prim ayde Dx); Post-operative state; Encounter for change of dressing Start: 02-20-2025 ambulatory Julio SAMANIEGO Facil ity:[facility] Start: 02-20-2025 Registered Referred Julio rosario [facility] [address] Start: 02-18-2025 ambulatory Julio SAMANIEGO Facil ity:[facility] Start: 02-18-2025 Registered Referred Julio Purdy [facility] [address] Start: 01-13-2025 End: 01-13-2025 ambulatory NO ASSIGNED PCP GENERIC PROVIDER 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 Start: 01-08-2025 End: 01-08-2025 Subsequent hospital visit by physician Leslee Krueger Onc Tx Plan [facility] Comment on above: Arrived Start: 01-07-2025 End: 01-07-2025 ambulatory NO ASSIGNED PCP GENERIC PROVIDER [facility] Start: 01-07-2025 End: 01-07-2025 Subsequent hospital visit by physician [email or web address] [facility] Comment on above: Arrived Start: 01-06-2025 ambulatory NO ASSIGNED PC P GENERIC PROVIDER [facility] Start: 01-03-2025 End: 01-03-2025 ambulatory NO ASSIGNED PCP GENERIC PROVIDER [facility] Start: 01-03-2025 End: 01-03-2025 Subsequent hospital visit by physician Leslee Krueger Onc Tx Plan [facility] Comment on above: Arrived Start: 01-02-2025 End: 01-02-2025 Subsequent hospital visit by physician Leslee Bb Ct Simulator [facility] Comment on above: 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, including hip (Primary Dx) Start: 01-02-2025 End: 01-02-2025 ambulatory NO ASSIGNED PCP GENERIC PROVIDER [facility] Start: 01-02-2025 End: 01-02-[address] [facility] Start: 01-02-2025 End: 01-02-2025 Subsequent hospital visit by physician Evans [employer] [facility] [employer] Comment on above: 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, including hip Start: 12-24-2024 End: 02-17-2025 Evaluation and management of inpatient KONG Dominguez CHAIM [facility] Start: 12-23-2024 Evaluation and manag ement of inpatient CURTIS ROSSNANDEZ [facility] Start: 12-22-2024 End: 12-24-2024 Evaluation and management of inpatient shanikaevangelistabi Tobiasya DO Work Phone: [facility] Oncology Medical Uni [address] Comment on above: Sepsis, due to unspe cified organism, unspecified whether acute organ dysfunction present (HCC) (Primary Dx); Abscess of left hip Start: 12-20-2024 End: 12-20-2024 ambulatory [facility] Start: 12-20-2024 End: 12-20-2024 ambulatory [facility] Start: 12-20-2024 End: 12-20-2024 Office outpatient visit 40 minutes Sreedhar Jiang MD Work Phone: [facility] Comment on above: Squamous cell carcin pasha of left hip (Primary Dx); Hypercalcemia of malignancy Start: 12-20-2024 End: 12-20-2024 ambulatory [facility] Start: 12-12-2024 End: 12-12-2024 Evaluation and management of inpatient [facility] Start: 12-07-2024 End: 12-19-2024 Evaluation and management of inpatient Mine Nunez MD Work Phone: [facility] 5 Start: 12-06-2024 End: 12-07-2024 Evaluation and management of inpatient Fer Hollins MD Work Phone: [facility] EMERGENCY DEPT Comment on above: Abscess of left hip (Primary Dx) Start: 12-04-2024 End: 12-04-2024 ambulatory Julio SAMANIEGO [facility] Work Phone: Start: 12-04-2024 End: 12-04-2024 Departed Referred [facility] [address] Start: 12-04-2024 Registered Referred Julio Nolasco -[facility] [address] Start: 12-04-2024 End: 12-04-2024 ambulatory Julio SAMANIEGO Facility:[facility] Start: 11-29-2024 End: 11-29-2024 Office outpatient visit 40 minutes Sreedhar Jiang MD Work Phone: [facility] Comment on above: 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 Start: 11-10-2024 End: 11-27-2024 Evaluation and management of inpatient Baldomero Powell MD Work Phone: [facility] Soheila Aguirre 3 Start: 11-08-2024 End: 11-10-2024 Evaluation and management of inpatient Fer Kennedy MD Work Phone: [facility] Medical Surgical Unit MSU H5 Comment on above: Abscess (Primary Dx) Start: 10-24-2024 End: 10-24-2024 ambulatory Julio SAMANIEGO [facility] Work Phone: Start: 10-24-2024 End: 10-24-2024 Departed Referred Julio Nolasco -[facility] - [address] Start: 10-24-2024 End: 10-24-2024 ambulatory Julio SAMANIEGO Facility:[facility] Start: 10-10-2024 End: 10-23-2024 Evaluation and management of inpatient Kishore Gutierrez MD Work Phone: [facility] 20 Start: 09-30-2024 End: 09-30-2024 ambulatory [facility] Ambulatory Start: 09-30-2024 End: 09-30-2024 Office outpatient visit 25 minutes Marlon Christiansen MD Work Phone: [facility] Comment on above: Clinical trial parti cipant (Primary Dx) Start: 09-30-2024 End: 09-30-2024 Patient encounter procedure Marlon Christiansen MD Work Phone: [facility] Work Phone: Start: 09-24-2024 End: 09-24-2024 Office outpatient visit 10 minutes Ankit Nino MD Work Phone: [facility] Comment on above: Counseling on health promotion and disease prevention (Primary Dx); Hidradenitis suppurativa Start: 09-13-2024 End: 09-17-2024 Evaluation and management of inpatient Ankit Nino MD Work Phone: [facility] [place] [address] Comment on above: Wound infection (Renee francine Dx); Nausea; Constipation, unspecified constipation type; Viral infection; Smoking Start: 09-12-2024 End: 09-13-2024 Emergency department patient visit Xiomara Kauffman MD Work Phone: [facility] ED Comment on above: Buttock wound, left, initial encounter (Primary Dx); Sepsis, due to unspecified organism, unspecified whether acute organ dysfunction present (HCC); Hidradenitis suppurativa Start: 08-20-2024 End: 08-20-2024 ambulatory [facility] Ambulatory Start: 08-20-2024 End: 08-20-2024 Office outpatient visit 25 minutes Marlon Christiansen MD Work Phone: [facility] Comment on above: Clinical trial parti cipant (Primary Dx) Start: 08-20-2024 End: 08-20-2024 Patient encounter procedure Marlon Christiansen MD Work Phone: [facility] Work Phone: Start: 07-08-2024 End: 07-08-2024 ambulatory [facility] Ambulatory Start: 05-27-2024 End: 05-27-2024 ambulatory [facility] Ambulatory Start: 04-12-2024 End: 04-12-2024 ambulatory [facility] Ambulatory Start: 04-04-2024 End: 04-04-2024 ambulatory [facility] Ambulatory Start: 04-04-2024 End: 04-04-2024 Office outpatient visit 15 minutes Kimber Last MD Work Phone: [facility] Comment on above: Clinical trial parti cipant (Primary Dx) Start: 04-04-2024 End: 04-04-2024 Patient encounter procedure Kimber Last MD Work Phone: [facility] Work Phone: Start: 02-29-2024 End: 02-29-2024 Subsequent hospital visit by physician Leslee [id number] Cr Nonv1 Holter/Ecg Resource [facility] Comment on above: Clinical trial parti cipant Start: 02-29-2024 End: 02-29-2024 Office outpatient visit 25 minutes Kimber Last MD Work Phone: [facility] Comment on above: Clinical trial parti cipant (Primary Dx) Start: 02-29-2024 End: 02-29-2024 Patient encounter procedure Kimber Last MD Work Phone: [facility] Work Phone: Start: 02-09-2024 End: 02-09-2024 Office outpatient visit 40 minutes Kimber Last MD Work Phone: [facility] Comment on above: Clinical trial parti cipant (Primary Dx) Start: 02-09-2024 End: 02-09-2024 Patient encounter procedure Kimber Last MD Work Phone: [facility] Work Phone: Start: 01-16-2024 End: 01-16-2024 Office outpatient visit 40 minutes Kimber Last MD Work Phone: [facility] Comment on above: Clinical trial parti cipant (Primary Dx) Start: 01-16-2024 End: 01-16-2024 Patient encounter procedure Kimber Last MD Work Phone: [facility] Work Phone: Start: 12-29-2023 End: 12-29-2023 Office outpatient visit 40 minutes Kimber Last MD Work Phone: [facility] Comment on above: Clinical trial parti cipant (Primary Dx) Start: 12-29-2023 End: 12-29-2023 Patient encounter procedure Kimber Last MD Work Phone: [facility] Work Phone: Start: 12-11-2023 End: 12-11-2023 Office outpatient visit 40 minutes Kimber Last MD Work Phone: [facility] Comment on above: Clinical trial parti cipant (Primary Dx) Start: 12-11-2023 End: 12-11-2023 Patient encounter procedure Kimber Last MD Work Phone: [facility] Work Phone: Start: 11-23-2023 End: 11-23-2023 Subsequent hospital visit by physician [facility] [id number] Cr Nonv1 Holter/Ecg Resource [facility] Comment on above: Clinical trial parti cipant Start: 11-23-2023 End: 11-23-2023 Office outpatient new 60 minutes Kimber Last MD Work Phone: [facility] Comment on above: Clinical trial parti cipant (Primary Dx) Start: 11-23-2023 End: 11-23-2023 Patient encounter procedure Kimber Last MD Work Phone: [facility] Work Phone: Start: 04-08-2023 Transcribe Orders Vivian Keen MD Work Phone: [facility] Laboratory Comment on above: Hidradenitis suppura tiva (Primary Dx) Procedures Date Procedure Procedure Detail Performing Clinician Start: 03-18-2025 Gram stain microscopy Julio SAMANIEGO Start: 03-18-2025 End: 03-18-2025 Microbial culture, routine Julio SAMANIEGO Start: 03-12-2025 Procedure Julio SAMANIEGO Comment on above: Test Ordered: [id number] Drug Screen 9 w/Con f, WBETHYL ALCOHOL, [...] was developed and its performance characteristicsdetermined by [facility]. It has not been cleared or approvedby the Food and Drug Administration.Oxycodones Confirmation Positive MX Reference Range: .Oxycodone 42.0 ng/mL MX Reference Range: .Oxymorphone Negative ng/mL MX Reference Range: .Expected metabolism of oxycodone class drugs: Parent Drug Detected Metabolites Oxycodone: Oxymorphone Oxymorphone: NoneConfirmation threshold: 1.0 ng/mLPerformed at: [employer] [address] [id number] Director: Michelle Riggs [facility], Phone: [phone] at: [address] [id number] Director: Steve Rae PhD, Phone: [phone] Start: 02-20-2025 Vitamin D, 25-hydroxy measurement Julio [...] 01-08-2025 RAD ONC MSQ TREATMENT SUMMARY Jose Jaun morocho MD Work Phone: Start: 01-02-[address] SIM IMAGES ONLY Phil oneil MD Work Phone: Start: 12-24-2024 Blood count complete auto&auto difrntl wbc Clarita Hay DO Work Phone: Start: 12-24-2024 Basic metabolic panel calcium total Kong Guy Dia MD Work Phone: Start: 12-22-2024 Urinalysis complete panel - Urine Ronna Leon SUPERVISOR RECORD PRESS - PAYROLL SPECIALIST Work Phone: Start: 12-22-2024 Urnls dip stick/tablet rgnt auto w/o microscopy Ronna Leon SUPERVISOR RECORD PRESS - PAYROLL SPECIALIST Work Phone: Start: 12-22-2024 Culture bacterial any source anaerobic iso&id Ronna Leon SUPERVISOR RECORD PRESS - PAYROLL SPECIALIST Work Phone: Start: 12-22-2024 Radex hip unilateral with pelvis 2-3 views Ronna Leon SUPERVISOR RECORD PRESS - PAYROLL SPECIALIST Work Phone: Start: 12-22-2024 Radiologic exam chest single view Ronna Leon SUPERVISOR RECORD PRESS - PAYROLL SPECIALIST Work Phone: Start: 12-22-2024 Bacteria identified in Blood by Culture Ronna Leon SUPERVISOR RECORD PRESS - PAYROLL SPECIALIST Work Phone: Start: 12-22-2024 Comprehensive metabolic panel Ronna zheng SUPERVISOR RECORD PRESS - PAYROLL SPECIALIST Work Phone: Start: 12-22-2024 Manual Differential panel - Blood Ronna Leon SUPERVISOR RECORD PRESS - PAYROLL SPECIALIST Work Phone: Start: 12-19-2024 Renal function panel Fer Gupta MD Work Phone: Start: 12-18-2024 Blood count complete auto&auto difrntl wbc Dara Alejo You DO Work Phone: Start: 12-17-2024 Renal function panel Fer Gupta MD Work Phone: Start: 12-16-2024 CLUB MANAGER MODIFIED BARIUM SWALLOW EVALUATION Fer Gupta MD [...] lds trcg only w/o i&r Lynette Segovia SUPERVISOR RECORD PRESS-PAYROLL SPECIALIST Work Phone: Start: 12-12-2024 Mri lower [...] Work Phone: Start: 12-06-2024 Comprehensive metabolic panel Ltaricia Schroeder DO Work Phone: Start: 12-06-2024 Ecg [...] Work Phone: Start: 11-13-2024 Comprehensive metabolic panel Noah Peña MD Work [...] 11-11-2024 Iadna hepatitis c quant & reverse 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 Carlos Manuel Rader MD Work Phone: Start: [...] Manual differential performed [Presence] in Blood Kaushik Cervantes DO Work Phone: Start: 11-08-2024 Hemoglobin glycosylated a1c Kaushik bowles DO Work Phone: Start: 11-08-2024 Ct pelvis [...] 10-21-2024 Dup-scan xtr veins complete bilateral study Frnaces Watts MD Work Phone: Start: 10-21-2024 Basic [...] Work Phone: Start: 09-15-2024 Renal function panel Carlso Lewis MD Work Phone: Start: 09-14-2024 Influenza [...] for Adults (1 - 1-dose 75+ series) [facility] Start: 2033 RSV patient s and/or patients aged 60+ years (1 - 1-dose 60+ series) RSV patients and/or patients aged 60+ years (1 - 1-dose 60+ series) [facility] Start: 09-14-2029 Lipid panel [facility] Start: 11-13-2027 Diabetes mellitus screening [facility] Start: 09-14-2027 Diabetes mellitus screening [facility] Start: 11-08-2025 Hemoglobin A1c measurement [facility] Start: 09-14-2025 Hemoglobin A1c measurement [facility] Start: 05-19-2025 Influenza vaccination [facility] Start: 05-16-2025 End: 05-16-2025 Admission to same day surgery center 05/16/2025 1:05 PM EDT - 05/16/2025 3:05 PM EDT Surgery [facility] [place] [address] [place] [address] [place] [address] Department of [place] [address] SURGICAL PROCUREMENT, GRAFT, SKIN, FULL-THICKNESS, LOWER EXTREMITY [85849 (CPT )] [facility] [place] Comment on above: SURGICAL PROCUREMENT , GRAFT, SKIN, FULL-THICKNESS, LOWER EXTREMITY [31919 (CPT )] Start: 05-16-2025 End: 05-16-2025 Fth/gft fr w/dir clsr s/a/l ea addl 20 cm/< SURGICAL PROCUREMENT, GRAFT, SKIN, FULL-THICKNESS, LOWER EXTREMITY Wound of thigh 05/16/2025 1:05 PM EDT Virtual [facility] [place] KENJI Start: 05-16-2025 Subsequent hospital visit by physician 05/16/2025 11:35 AM EDT Hospital Encounter [facility] [place] [address] [place] [address] [place] [address] Department [place] [address] [facility] [place] Start: 05-13-2025 End: 05-13-2025 Telemedicine consultation with patient 05/13/2025 2:00 PM EDT Telemedicine [facility] [address] [place] [id number] Astrid Hawley, SUPERVISOR RECORD PRESS-PAYROLL SPECIALIST [address] [place] [address] [facility] Start: 04-30-2025 End: 04-30-2025 Admission to establishment 04/30/2025 9:15 AM EDT Pre-Admission Testing [facility] [address] [place] [id number] [facility] Start: 04-07-2025 End: 04-07-2025 Telemedicine consultation with patient 04/07/2025 1:30 PM EDT Telemedicine [facility] [address] [place] [address] Astrid Hawley, SUPERVISOR RECORD PRESS-PAYROLL SPECIALIST [address] [place] [address] [facility] Start: 03-24-2025 End: 03-24-2025 Patient encounter procedure 03/24/2025 11:00 AM EDT Office [facility] [address] [facility] [address] [place] [phone] [facility] Start: 03-11-2025 End: 03-11-2025 Patient encounter procedure 03/11/2025 12:00 PM EDT Office Visit [facility] [address] [place] [phone] [place] [address] [place] [address] [facility] Start: 03-11-2025 End: 03-11-2025 Telemedicine consultation with patient 03/11/2025 12:00 PM EDT Telemedicine [address] [place] [phone] [place] [address] [address] [place] [address] [facility] Start: 03-10-2025 End: 03-10-2026 Drug Screen 9 Panel, Blood with Reflex to Confirmation Drug Screen 9 Panel, Blood with Reflex to Confirmation Lab Routine Encounter for monitoring opioid maintenance therapy Expected: 03/10/2025 (Approximate), Expires: 03/10/2026 [facility] Service Area Work Phone: Comment on above: Expected: 03/10/2025 (Approximate), Expires: 03/10/2026 Start: 03-10-2025 End: 03-10-2025 Patient encounter procedure 03/10/2025 2:00 PM EDT Office Visit [facility] [address] [place] [address] [phone] Astrid Hawley, SUPERVISOR RECORD PRESS-PAYROLL SPECIALIST [address] [place] [address] [facility] Start: 01-27-2025 End: 01-27-2025 Follow-up encounter 01/27/2025 2:40 PM EDT Follow-Up [facility] [address] [place] [address] Ara Riggs PA-C [address] [place] [address] [facility] Start: 01-21-2025 End: 01-21-2025 Patient encounter procedure 01/21/2025 2:30 PM EDT Office Visit [facility] [address] [place] [address] [phone] Astrid Hawley, SUPERVISOR RECORD PRESS-PAYROLL SPECIALIST [address] [place] [address] [facility] Start: 01-16-2025 End: 01-16-2025 ambulatory 01/16/2025 4:00 PM EDT Infusion [facility] [address] [place] [phone] [facility] Start: 01-16-2025 End: 01-16-2025 Patient encounter procedure 01/16/2025 3:00 PM EDT Office Visit [facility] [address] [place] [address] [phone] Sarah Rodarte, SUPERVISOR RECORD PRESS-PAYROLL SPECIALIST [address] [place] [address] [facility] Start: 01-13-2025 End: 01-13-2025 Patient encounter procedure 01/13/2025 2:00 PM EDT Appointment [facility] [address] [place] [address] [facility] Start: 01-10-2025 End: 01-10-2025 Patient encounter procedure 01/10/2025 4:45 PM EDT Appointment [facility] [address] [place] [address] [facility] Start: 01-10-2025 End: 01-10-2026 CBC W Auto Differential panel - Blood CBC and Auto Differential Lab Routine Squamous cell carcinoma of left hip Expected: 01/10/2025, Expires: 01/10/2026 [facility] Service Area Work Phone: Comment on above: Expected: 01/10/2025 , Expires: 01/10/2026 Start: 01-10-2025 End: 01-10-2026 Comprehensive metabolic 2000 panel - Serum or Plasma Comprehensive metabolic panel Lab Routine Squamous cell carcinoma of left hip Expected: 01/10/2025, Expires: 01/10/2026 [facility] Work Phone: Comment on above: Expected: 01/10/2025 , Expires: 01/10/2026 Start: 01-10-2025 End: 01-10-2026 Lactate dehydrogenase [Enzymatic activity/volume] in Serum or Plasma by Lactate to pyruvate reaction Lactate dehydrogenase Lab Routine Squamous cell carcinoma of left hip Expected: 01/10/2025, Expires: 01/10/2026 [facility] Work Phone: Comment on above: Expected: 01/10/2025 , Expires: 01/10/2026 Start: 01-10-2025 End: 01-10-2025 ambulatory 01/10/2025 1:00 PM EDT Infusion [facility] [address] [place] [address] [facility] Start: 01-10-2025 End: 01-10-2025 Patient encounter procedure [facility] Start: 01-09-2025 End: 01-09-2025 Patient encounter procedure [facility] Start: 01-08-2025 End: 01-08-2025 Patient encounter procedure [facility] Start: 01-07-2025 End: 01-07-2025 ambulatory [facility] Start: 01-07-2025 End: 01-07-2025 Patient encounter procedure [facility] Start: 01-07-2025 End: 01-07-2025 Patient encounter procedure 01/07/2025 8:30 AM EDT Appointment [facility] [address] [place] [address] [facility] Start: 01-06-2025 End: 01-06-2025 Patient encounter procedure 01/06/2025 6:00 PM EDT Appointment [facility] [address] [place] [address] [facility] Start: 12-30-2024 End: 12-30-2024 ambulatory [facility] Start: 12-30-2024 End: 12-30-2024 Patient encounter procedure 12/30/2024 10:00 AM EDT Office Visit [facility] [address] [place] [address] Astrid Hawley, SUPERVISOR RECORD PRESS-PAYROLL SPECIALIST [address] [place] [address] [facility] Start: 12-20-2024 End: 12-20-2024 ambulatory [facility] Start: 12-17-2024 End: 12-17-2024 ambulatory [facility] Start: 12-17-2024 End: 12-17-2024 Patient encounter procedure 12/17/2024 1:00 PM EDT Office Visit [facility] [address] [place] [phone] Astrid Hawley, SUPERVISOR RECORD PRESS-PAYROLL SPECIALIST [address] [place] [address] [facility] Start: 12-06-2024 End: 12-06-2025 CBC W Auto Differential panel - Blood CBC and Auto Differential Lab Routine Squamous cell carcinoma of left hip Expected: 12/06/2024, Expires: 12/06/2025 [facility] Service Area Work Phone: Comment on above: Expected: 12/06/2024 , Expires: 12/06/2025 Start: 12-06-2024 End: 12-06-2025 Comprehensive metabolic 2000 panel - Serum or Plasma Comprehensive metabolic panel Lab Routine Squamous cell carcinoma of left hip Expected: 12/06/2024, Expires: 12/06/2025 [facility] Work Phone: Comment on above: Expected: 12/06/2024 , Expires: 12/06/2025 Start: 12-06-2024 End: 12-06-2025 Corticotropin [Mass/volume] in Plasma Acth Lab Routine Squamous cell carcinoma of left hip Expected: 12/06/2024, Expires: 12/06/2025 [facility] Work Phone: Comment on above: Expected: 12/06/2024 , Expires: 12/06/2025 Start: 12-06-2024 End: 12-06-2025 Cortisol [Mass or Moles/volume] in Serum or Plasma --AM peak specimen Cortisol Am Lab Routine Squamous cell carcinoma of left hip Expected: 12/06/2024, Expires: 12/06/2025 [facility] Work Phone: Comment on above: Expected: 12/06/2024 , Expires: 12/06/2025 Start: 12-06-2024 End: 12-06-2025 Lactate dehydrogenase [Enzymatic activity/volume] in Serum or Plasma by Lactate to pyruvate reaction Lactate dehydrogenase Lab Routine Squamous cell carcinoma of left hip Expected: 12/06/2024, Expires: 12/06/2025 [facility] Work Phone: Comment on above: Expected: 12/06/2024 , Expires: 12/06/2025 Start: 12-06-2024 End: 12-06-2025 Tsh With Reflex To Free T4 If Abnormal Tsh With Reflex To Free T4 If Abnormal Lab Routine Squamous cell carcinoma of left hip Expected: 12/06/2024, Expires: 12/06/2025 [facility] Work Phone: Comment on above: Expected: 12/06/2024 , Expires: 12/06/2025 Start: 11-29-2024 End: 11-29-2024 ambulatory [facility] Start: 11-12-2024 End: 11-12-2024 ambulatory [facility] Start: 09-30-2024 End: 09-30-2024 Patient encounter procedure 09/30/2024 10:00 AM EST Office Visit [facility] [address] [facility] [address] [place] [phone] [place] [address] [address] Department of Dermatology/[place] [address] [facility] Start: 09-24-2024 End: 09-24-2024 Telemedicine consultation with patient 09/24/2024 8:40 AM EST Telemedicine [facility] [address] [facility] [address] [place] [address] [place] [address] [place] [address] [facility] Start: 09-20-2024 End: 09-20-2024 Patient encounter procedure 09/20/2024 11:30 AM EST Office Visit [address] [place] [phone] Ronna Carpenter, SUPERVISOR RECORD PRESS-PAYROLL SPECIALIST [address] [facility] [address] [place] [address] [facility] Start: 09-18-2024 End: 09-17-2025 CBC panel - Blood by Automated count CBC Lab Routine Wound infection Expected: 09/18/2024 (Approximate), Expires: 09/17/2025 [facility] Work Phone: Comment on above: Expected: 09/18/2024 (Approximate), Expires: 09/17/2025 Start: 09-18-2024 End: 09-17-2025 Renal function 2000 panel - Serum or Plasma Renal function panel Lab Routine Wound infection Expected: 09/18/2024 (Approximate), Expires: 09/17/2025 [facility] Service Area Work Phone: Comment on above: Expected: 09/18/2024 (Approximate), Expires: 09/17/2025 Start: 05-19-2024 COVID-19 Vaccine ( season) COVID-19 Vaccine ( season) [facility] Start: 05-19-2024 Influenza vaccination [facility] Start: 05-19-2024 [facility] Start: 04-12-2024 End: 04-12-2024 Patient encounter procedure 04/12/2024 9:00 AM EDT Office Visit [facility] [address] [place] [phone] [place] [address] [address] Department of Dermatology/[place] [address] [facility] Start: 03-29-2024 End: 03-29-2024 Patient encounter procedure 03/29/2024 9:00 AM EDT Office Visit [facility] [address] [place] [place] [address] [place] [address] [place] [address] [address] Department of Dermatology/[place] [address] [facility] Start: 03-19-2024 DTaP/Tdap/Td Vaccine s (2 - Td or Tdap) DTaP/Tdap/Td Vaccines (2 - Td or Tdap) [facility] Start: 03-19-2024 [facility] Start: 02-29-2024 End: 02-28-2025 ECG 12 lead (Ancillary Performed) [facility] Service Area Work Phone: Comment on above: Expected: 02/29/2024 (Approximate), Expires: 02/28/2025 Once for 1 Occurrenc es starting 02/29/2024 until 02/29/2024 Start: 02-09-2024 End: 02-09-2024 Patient encounter procedure 02/09/2024 9:30 AM EDT Office Visit [facility] [address] [facility] [address] [place] [address] [place] [address] [address] Department of Dermatology/[place] [address] [facility] Start: 01-16-2024 End: 01-16-2024 Patient encounter procedure 01/16/2024 10:30 AM EDT Office Visit [facility] [address] [facility] [address] [place] [address] [place] [address] [address] Department of Dermatology/[place] [address] [facility] Start: 11-23-2023 Subsequent hospital visit by physician 11/23/2023 11:01 AM EST Hospital Encounter [facility] [place] [address] [facility] [facility] [address] [place] [phone] Clinical trial participant [facility] Comment on above: Clinical trial parti cipant Start: 2023 Pneumococcal vaccination Pneum ococcal Vaccine (2 of 2 - PCV) [facility] Start: 2023 Pneumococcal Vaccine : 50+ Years (2 of 2 - PCV) Pneumococcal Vaccine: 50+ Years (2 of 2 - PCV) [facility] Start: 2023 Screening for malign ant neoplasm of lung [facility] Start: 2023 Zoster Vaccines (1 of 2) Zoste r Vaccines (1 of 2) [facility] Start: 2023 [facility] Start: 05-19-2023 COVID-19 Vaccine ( season) COVID-19 Vaccine ( season) [facility] Start: 05-19-2023 Influenza vaccination Influenza Vacc ine (#1) [facility] Start: 03-19-2015 Pneumococcal vaccination Pneum ococcal Vaccine (2 of 2 - PCV) [facility] Start: 03-19-2015 [facility] Start: 1995 DTaP/Tdap/Td Vaccine s (1 - Tdap) DTaP/Tdap/Td Vaccines (1 - Tdap) [facility] Start: 1992 DTaP/Tdap/Td Vaccine s (1 - Tdap) DTaP/Tdap/Td Vaccines (1 - Tdap) [facility] Start: 1992 Hepatitis B Vaccines (1 of 3 - 19+ 3-dose series) Hepatitis B Vaccines (1 of 3 - 19+ 3-dose series) [facility] Start: 1992 Urine screening for protein [facility] Start: 1992 Zoster Vaccines (1 of 2) Zoste r Vaccines (1 of 2) [facility] Start: 1992 [facility] Start: 1991 Diabetes mellitus screening Diabetes Screening [facility] Start: 1991 Hepatitis C screening S [facility] Start: 1985 Depression Screening Depression Scre ening [facility] Start: 1978 COVID-19 Vaccine (#1) COVID-19 Vacci ne (#1) [facility] Start: 1978 [facility] Start: 1974 MMR Vaccines (1 of 1 - Standard series) MMR Vaccines (1 of 1 - Standard series) [facility] Start: 1974 [facility] Start: 01-29-1974 COVID-19 Vaccine (#1) COVID-19 Vacci ne (#1) [facility] Start: 01-29-1974 Examination of skin [facility] Start: 1973 Hepatitis B Vaccines (1 of 3 - 3-dose series) Hepatitis B Vaccines (1 of 3 - 3-dose series) [facility] Start: 1973 HIV screening [facility] Start: 1973 Lipid panel Lipid Panel [facility] Start: 1973 Screening for malign ant neoplasm of colon [facility] Start: 1973 Yearly Adult Physical Yearly Adult P hysical [facility] Start: 1973 [facility] End: 12-17-2024 Acupuncture eval and treat [facility] Service Area Work Phone: End: 09-12-2024 Aerobic and Anaerobic Culture with Stain [facility] Work Phone: Comment on above: Once (Lab) for 1 Occ urrences starting 09/12/2024 until 09/12/2024 End: 11-08-2024 Aerobic and Anaerobic Culture with Stain Aerobic and Anaerobic Culture with Stain Microbiology STAT Once (Lab) for 1 Occurrences starting 11/08/2024 until 11/08/2024 [facility] Work Phone: Comment on above: Once (Lab) for 1 Occ urrences starting 11/08/2024 until 11/08/2024 End: 12-06-2024 Aerobic and Anaerobic Culture with Stain [facility] Work Phone: Comment on above: Once (Lab) for 1 Occ urrences starting 12/06/2024 until 12/06/2024 End: 12-22-2024 Aerobic and Anaerobic Culture with Stain [facility] Work Phone: Comment on above: Once (Lab) for 1 Occ urrences starting 12/22/2024 until 12/22/2024 End: 09-16-2024 AFB CULTURE & STAIN; [facility]; [id number] - Miscellaneous Test [facility] Work Phone: Comment on above: Once (Lab) for 1 Occ urrences starting 09/16/2024 until 09/16/2024, 1 completed End: 11-18-2024 Art Therapy eval and treat [facility] Work Phone: End: 12-08-2024 Art Therapy eval and treat [facility] Work Phone: Bacteria identified in Blood by Culture [facility] [employer] Bacteria identified in Blood by Culture Blood Culture Microbiology Routine 09/13/2024 11:14 PM EST [facility] Work Phone: Bacteria identified in Blood by Culture [facility] [employer] Bacteria identified in Blood by Culture [facility] [employer] Bacteria identified in Blood by Culture [facility] Bacteria identified in Unspecified specimen by Aerobe culture Culture, Aerobic Bacteria with Gram Stain Microbiology STAT 09/12/2024 9:58 PM EST [facility] [employer] End: 11-08-2024 Bacteria identified in Unspecified specimen by Aerobe culture Culture, Aerobic Bacteria with Gram Stain Microbiology Timed Once for 1 Occurrences starting 11/08/2024 until 11/08/2024 [facility] Work Phone: Comment on above: Once for 1 Occurrenc es starting 11/08/2024 until 11/08/2024 Bacteria identified in Unspecified specimen by Aerobe culture Culture, Aerobic Bacteria with Gram Stain Microbiology STAT 12/06/2024 12:18 PM EDT [facility] [employer] Bacteria identified in Unspecified specimen by Aerobe culture Culture, Aerobic Bacteria with Gram Stain Microbiology STAT 12/22/2024 1:37 PM EDT [facility] [employer] End: 09-12-2024 Bacteria identified in Unspecified specimen by Anaerobe culture [facility] Comment on above: Once for 1 Occurrenc es starting 09/12/2024 until 09/12/2024 End: 11-08-2024 Bacteria identified in Unspecified specimen by Anaerobe culture Anaerobic culture Microbiology Timed Once for 1 Occurrences starting 11/08/2024 until 11/08/2024 [facility] [employer] Comment on above: Once for 1 Occurrenc es starting 11/08/2024 until 11/08/2024 End: 12-06-2024 Bacteria identified in Unspecified specimen by Anaerobe culture [facility] [employer] Comment on above: Once for 1 Occurrenc es starting 12/06/2024 until 12/06/2024 Bacteria identified in Unspecified specimen by Anaerobe culture Anaerobic culture Microbiology STAT 12/22/2024 1:37 PM EDT [facility] [employer] Basic metabolic 2000 panel - Serum or Plasma [facility] Work Phone: CBC W Auto Different ial panel - Blood CBC and Auto Differential Lab Routine Morning draw (Lab) until discontinued starting 09/14/2024, [address] [facility] Work Phone: Comment on above: Morning draw (Lab) u ntil discontinued starting 09/14/2024, 4 completed CBC W Auto Different ial panel - Blood [facility] Work Phone: CBC W Auto Different ial panel - Blood [facility] Work Phone: CBC W Auto Different ial panel - Blood [facility] Work Phone: End: 10-11-2024 Consult to Interventional Radiology [facility] Work Phone: End: 11-12-2024 Consult to Interventional Radiology [facility] Work Phone: End: 11-20-2024 Consult to Interventional Radiology [facility] Work Phone: ECG 12 Lead ECG 12 Lead ECG Routine 09/14/2024 12:30 AM EST [facility] Work Phone: End: 11-13-2024 ECG 12 lead [facility] Work Phone: ECG 12 lead (Ancilla ry Performed) ECG 12 lead (Ancillary Performed) ECG Routine Clinical trial participant 11/23/2023 11:[address] [facility] Work Phone: Electrocardiogram, 12-lead PRN ACS symptoms Electrocardiogram, 12-lead PRN ACS symptoms ECG Routine As needed until discontinued starting 09/13/2024 [facility] Work Phone: Comment on above: As needed until disc ontinued starting 09/13/2024 Electrocardiogram, 12-lead PRN ACS symptoms [facility] Work Phone: Electrocardiogram, 12-lead PRN ACS symptoms [facility] Work Phone: Electrocardiogram, 12-lead PRN ACS symptoms [facility] Work Phone: Fth/gft fr w/dir cls r s/a/l ea addl 20 cm/< SURGICAL PROCUREMENT, GRAFT, SKIN, FULL-THICKNESS, LOWER EXTREMITY Wound of thigh [facility] End: 09-13-2024 Fungitell Beta-D Glucan Serum [facility] Work Phone: Comment on above: Once (Lab) for 1 Occ urrences starting 09/13/2024 until 09/13/2024 Fungus identified in Unspecified specimen by Culture Fungal Culture/Smear Microbiology Routine 09/14/2024 11:[address] [facility] Work Phone: Fungus identified in Unspecified specimen by Culture [facility] Work Phone: End: 09-13-2024 Histoplasma antigen, serum [facility] Work Phone: Comment on above: Once (Lab) for 1 Occ urrences starting 09/13/2024 until 09/13/2024 Magnesium [Mass/volu me] in Serum or Plasma Magnesium Lab Routine Morning draw (Lab) until discontinued starting 09/14/2024, 4 completed [facility] Work Phone: Comment on above: Morning draw (Lab) u ntil discontinued starting 09/14/2024, 4 completed Magnesium [Mass/volu me] in Serum or Plasma [facility] Work Phone: Magnesium [Mass/volu me] in Serum or Plasma [facility] Work Phone: End: 12-21-2024 Magnesium [Mass/volume] in Serum or Plasma [facility] Work Phone: End: 11-18-2024 Music Therapy eval and treat [facility] Work Phone: End: 12-08-2024 Music Therapy eval and treat [facility] Work Phone: Phosphate [Mass/volu me] in Serum or Plasma [facility] Work Phone: Renal function 1999 panel - Serum or Plasma Renal Function Panel Lab Routine Morning draw (Lab) until discontinued starting 09/14/2024, 4 completed [facility] Work Phone: Comment on above: Morning draw (Lab) u ntil discontinued starting 09/14/2024, 4 completed Renal function 1999 panel - Serum or Plasma [facility] Work Phone: Renal function 1999 panel - Serum or Plasma [facility] Work Phone: Immunizations Immunization Date Immunization Notes Care Provider Fa cilijoelle 12-08-2024 influenza vaccine tiss-cult subunt (Flucelvax) STANDARD-DOSE injection 0.5 mL Fer Hlolins MD Work Phone: [facility] Payers Date Payer Category Payer Self-pay 2024 Medicaid (Managed Care) [id number] 2024 Medicaid HMO [id number] 2024 Formerly [facility] [id number] 2024 Medicaid [id number] 2022 Managed Care (Private) [employer] [facility] [id number] 2022 Private Health Insurance [id number] 2022 Private Health Insurance [id number] 1973 Unknown [id number] 1973 Unknown [id number] 1973 Unknown [id number] 1973 Unknown [id number] 2.16840.1.465972.3.579. 2.1243 1975 Unknown [id number] 2.16.840.1.551012.3.579. 2.1243 1975 Unknown [id number] 2.16.840.1.858693.3.579. 2.1243 1973 Unknown [id number] 2.16.840.1.275972.3.579. 2.1243 1973 Unknown [id number] 2.16.840.1.856665.3.579. 2.1243 1973 Unknown [id number] 2.16.840.1.883153.3.579. 2.1244 1973 Unknown [id number] 2.16.840.1.403184.3.579. 2.1244 1973 Unknown [id number] 2.16.840.1.925166.3.579. 2.1244 1973 Unknown [id number] 2.16.840.1.035990.3.579. 2.1244 1973 Unknown [id number] 2.16.840.1.790780.3.579. 2.1244 1973 Unknown [id number] 2.16.840.1.324868.3.579. 2.1244 1973 Unknown [id number] 2.16.840.1.282296.3.579. 2.1244 1973 Unknown [id number] 2.16.840.1.946078.3.579. 2.1244 1973 Unknown [id number] 2.16.840.1.017856.3.579. 2.1244 1973 Unknown [id number] 2.16.840.1.507564.3.579. 2.1244 1973 Unknown [id number] 2.16.840.1.330995.3.579. 2.1244 1973 Unknown [id number] 2.16.840.1.637678.3.579. 2.1244 1973 Unknown [id number] 2.16.840.1.734344.3.579. 2.1244 1973 Unknown [id number] 2.16.840.1.318086.3.579. 2.1244 1973 Unknown [id number] 2.16.840.1.454249.3.579. 2.1244 1973 Unknown [id number] 2.16.840.1.000148.3.579. 2.1244 1973 Unknown [id number] 2.16.840.1.302178.3.579. 2.1244 1973 Unknown [id number] 2.16.840.1.367568.3.579. 2.1244 1973 Unknown [id number] 2.16.840.1.032033.3.579. 2.1244 1973 Unknown [id number] 2.16.840.1.779042.3.579. 2.1245 1973 Unknown [id number] 2.16.840.1.198382.3.579. 2.1245 1973 Unknown [id number] 2.16.840.1.752863.3.579. 2.124 1973 Unknown [id number] 2.16.840.1.524150.3.579. 2.1244 1973 Unknown [id number] 2.16.840.1.795137.3.579. 2.124 1973 Unknown [id number] 2.16.840.1.852216.3.579. 2.1244 1973 Unknown [id number] 2.16.840.1.396445.3.579. 2.1245 Unknown [id number] 2.16.840.1.775541.3.579. 2.462 Unknown [id number] 2.16.840.1.099527.3.579. 2.462 Unknown [id number] 2.16.840.1.810231.3.579. 2.462 Unknown [id number] 2.16.840.1.642066.3.579. 2.462 Unknown [id number] 2.16.840.1.080614.3.579. 2.462 Unknown [id number] 2.16.840.1.650667.3.579. 2.462 Unknown [id number] 2.16.840.1.664746.3.579. 2.462 Social History Date Type Detail Facility Tobacco smoking stat [facility] Tobacco smoking consumption unknown [facility] Start: 1975 Sex Assigned At Not on file S [facility] Start: 09-13-2024 End: 02-17-2025 Gender identity Not on file [facility] Start: 03-29-2023 End: 02-04-2025 Exposure to SARS-CoV-2 (event) Not sure [facility] Start: 04-08-2023 End: 12-27-2024 Sex Male (finding) [facility] Start: 09-18-1986 [facility] Work Phone: Start: 09-18-1986 End: 09-18-1986 History of tobacco use Cigarette Smoker [facility] Work Phone: Start: 09-13-2024 End: 02-17-2025 Cigarettes smoked current (pack per day) - Reported 1 [facility] Work Phone: Start: 09-13-2024 End: 11-10-2024 Tobacco use and exposure Smokeless tobacco non-user [facility] Work Phone: How often to you hav e a drink containing alcohol? Never [facility] Work Phone: Start: 11-23-2023 How many standard drinks containing alcohol do you have on a typical day? Patient does not drink [facility] Work Phone: How hard is it for y ou to pay for the very basics like food, housing, medical care, and heating Very hard [facility] In the past 12 month s, was there a time when you were not able to pay the mortgage or rent on time? Yes [facility] Work Phone: At any time in the p ast 12 months, were you homeless or living in correction [including now]? No [facility] Work Phone: How hard is it for y ou to pay for the very basics like food, housing, medical care, and heating Somewhat hard [facility] (I/We) worried wheth er (my/our) food would run out before (I/we) got money to buy more. Sometimes true [facility] Work Phone: (I/We) worried wheth er (my/our) food would run out before (I/we) got money to buy more. Never true [facility] [employer] Start: 11-10-2024 [facility] Ex[facility]smoker [facility] Start: 09-18-2023 End: 09-18-1986 History of tobacco use Current smoker [facility] Work Phone: Start: 11-10-2024 End: 03-14-2025 Alcoholic beverage intake Ex-drinker (finding) [facility] Work Phone: Start: 1975 Sex Assigned At Male W [facility] Goals Date Patient Goal Desired Activity /State Personal health goal Functional Status Date Assessment Result Facility 12-07-2024 Are you deaf, or do you have serious difficulty hearing No 12/07/2024 2:58 PM EDT Josie Townsend RN No [facility] 12-07-2024 Are you blind, or do you have serious difficulty seeing, even when wearing glasses No 12/07/2024 2:58 PM EDT Josie Townsend RN No [facility] 12-07-2024 Do you have serious difficulty walking or climbing stairs Yes 12/07/2024 2:58 PM EDT Josie Townsend RN Yes [facility] 12-07-2024 Because of a physica l, mental, or emotional condition, do you have difficulty doing errands alone such as visiting a physician's office or shopping Yes 12/07/2024 2:58 PM EDT Josie Townsend RN Yes [facility] Mental Status Date Assessment Result Facility 12-07-2024 Because of a physica l, mental, or emotional condition, do you have serious difficulty concentrating, remembering, or making decisions No 12/07/2024 2:58 PM EDT Josie Townsend RN No [facility] [employer] Clinical Notes 04-04-2024 to 04-07-2025 TRAVIS Watson [...] Wishes to make his brother, Omkar La ([phone]) his HCPOA Next Follow-Up Visit: Return to [...] Care discussed with: Patient, RN SIGNATURE: TRAVIS Watson Contact information: Supportive and Palliative Oncology Monday-Monday 8 AM-5 PM , press option #5 Or [employer] Secure Chat documented in this encounter [facility] Work Phone: 03-24-2025 History of Present illness [...] to a Marjolin ulcer. He presented to [facility] on 12/24 for worsening disease of [...] nursing note reviewed. Exam conducted with a shrimp header present. Constitutional: General: not in acute distress. [...] and Reconstructive Surgery documented in this encounter [facility] Work Phone: 03-11-2025 History of Present illness [...] close his loop colostomy. Kong Mina MD conveyor monitor Division of Surgical Oncology [phone] [email or web address] SUBJECTIVE Kevan La is a 49 y.o. [...] at the margins. documented in this encounter [facility] Work Phone: 03-10-2025 History of Present illness [...] Wishes to make his brother, Omkar La ([phone]) his HCPOA Next Follow-Up Visit: Return to [...] Care discussed with: Patient SIGNATURE: Astrid Hawley APRN-PAYRO[employer] SPECIALIST Contact information: Supportive and Palliative Oncology Monday-Monday 8 AM-5 PM , press option #5, then option #1. Or [employer] Secure Chat documented in this encounter [facility] Work Phone: 03-03-2025 History of Present illness [...] refractory hidradenitis s/p operative debridement 10/13/2024 per [facility] due to significant infection burden. 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 He presented to [facility] on 12/24 for worsening disease of [...] nursing note reviewed. Exam conducted with a shrimp header present. Constitutional: General: not in acute distress. [...] ongoing uncontrolled pain documented in this encounter [facility] Work Phone: 01-09-2025 History of Present illness Narrative Images from the original note were not included. Radiation Oncology On Treatment Visit Patient Name: Kevan La : 1975 Referring Provider: No ref. provider found Primary Care Provider: No Assigned PCP Ernestina Hagan MD Care Team: Patient Care Team: No Assigned Pcp Ernestina Hagan MD as PCP - General (Leasing Consultant) Sreedhar Jiang MD as Consulting Physician (Hematology [...] Follow up PRN. documented in this encounter [facility] Work Phone: 12-24-2024 Plan of care note [...] maintained or improved Outcome: Adequate for Discharge [facility] 12-24-2024 Miscellaneous Notes Problem: Knowledge Deficit [...] family/caregiver to ask for assistance with transferring infant if caregiver noted to have fall risk [...] Awaiting sensitivity results documented in this encounter [facility] 12-24-2024 Note Hospitalist Progress Note Subjective: Admit Date: 12/22/2024 PCP: No primary care provider on file. Room#: E7-708/E7-708 A Chief Complaint Patient presents with Wound Infection Pt arrives by life care from [facility] in [place], [facility] [place] care pt has had wound infection since [...] levophed but is now off of. [facility] accepted him but waiting on bed until later this afternoon. He was boarded in our ED for 16hrs. Seen at bedside. Wounds are foul smelling. Pt states he was dropped off here from [facility] as it was the closest hospital. [...] PROT 7.2 PT/INR: No results for input(s): PROTIME, INR in the last 72 hours. CARDIAC ENZYMES: No results for input(s): TROPONINI in the last 72 hours. Procalcitonin: No results found for: PROCAL COVID-19 PCR: No results for input(s): COVID19 in the last 72 hours. Objective: Vitals: BP (!) 95/45 (BP Location: Left arm, Patient Position: Lying) Pulse 83 Temp 36.7 ?C (98 ?F) (Temporal) Resp 15 Ht 6' 7.02 (2.007 m) Wt 198 lb 6.6 oz [...] body function (HIGH). (more content not included)... [facility] 12-24-2024 History of Present illness Narrative Hospitalist Progress Note Subjective: Admit Date: 12/22/2024 PCP: No primary care provider on file. Room#: E7708/E7708 A Chief Complaint Patient presents with Wound Infection Pt arrives by life care from [facility] in [place], per life care pt has had wound [...] levophed but is now off of. [facility] accepted him but waiting on bed until later this afternoon. He was boarded in our ED for 16hrs. Seen at bedside. Wounds are foul smelling. Pt states he was dropped off here from [facility] as it was the closest hospital. [...] PROT 7.2 PT/INR: No results for input(s): PROTIME, INR in the last 72 hours. CARDIAC ENZYMES: No results for input(s): TROPONINI in the last 72 hours. Procalcitonin: No results found for: PROCAL COVID-19 PCR: No results for input(s): COVID19 in the last 72 hours. Objective: Vitals: BP (!) 95/45 (BP Location: Left arm, Patient Position: Lying) Pulse 83 Temp 36.7 C (98 F) (Temporal) Resp 15 Ht 6' 7.02 (2.007 m) Wt 198 lb 6.6 oz [...] Date -today - Location - Transfer to [facility] - Pending the following -transfer to Total time spent (which include face to face and non face to face encounters) : More than 30 minutes Extended Emergency Contact Information Primary Emergency Contact: TaliOmkar Mobile Relation: Brother Arleenjulisa Luis Fernandez MD Division of Hospital Medicine Inpatient Medical Services/[facility] Pharmacy to Dose Vancomycin - Progress Note Lab Results Component Value Date CREATININE 1.04 12/24/2024 BUN 7 (L) 12/24/2024 WBC 14.8 (H) 12/24/2024 Doses, serum creatinine, and vancomycin levels interfaced automatically to [employer] and data has been analyzed and interpreted. [...] as of this encounter: 2.007 m (6' 7). Weight as of this encounter: 89.4 kg [...] creatinine, and vancomycin levels interfaced automatically to [employer] and data has been analyzed and interpreted. [...] via Secure Chat documented in this encounter [facility] 12-24-2024 Note Discharge Summary Kevan La [...] levophed but is now off of. [facility] accepted him but waiting on bed until later this afternoon. He was boarded in our ED for 16hrs. Seen at bedside. Wounds are foul smelling. Pt states he was dropped off here from [facility] as it was the closest hospital. [...] PROT 7.2 PT/INR: No results for input(s): PROTIME, INR in the last 72 hours. CARDIAC ENZYMES: No results for input(s): TROPONINI in the last 72 hours. Procalcitonin: No results found for: PROCAL COVID-19 PCR: No results for input(s): COVID19 in the last 72 hours. Objective: Vitals: BP (!) 95/45 (BP Location: Left arm, Patient Position: Lying) Pulse 83 Temp 36.7 ?C (98 ?F) (Temporal) Resp 15 Ht 6' 7.02 (2.007 m) Wt 198 lb 6.6 oz [...] XR hip left 2 or 3 views [[id number]] Collected: 12/22/24 1335 Order Status: Completed Updated: 12/22/24 2368 Narrative: Patient Name: KEVAN LA : 1975 Exam Date/Time: 12/22/2024 13 (more content not included)... [facility] 12-24-2024 Hospital course Narrative Discharge Summary [...] levophed but is now off of. [facility] accepted him but waiting on bed until later this afternoon. He was boarded in our ED for 16hrs. Seen at bedside. Wounds are foul smelling. Pt states he was dropped off here from [facility] as it was the closest hospital. [...] PROT 7.2 PT/INR: No results for input(s): PROTIME, INR in the last 72 hours. CARDIAC ENZYMES: No results for input(s): TROPONINI in the last 72 hours. Procalcitonin: No results found for: PROCAL COVID-19 PCR: No results for input(s): COVID19 in the last 72 hours. Objective: Vitals: BP (!) 95/45 (BP Location: Left arm, Patient Position: Lying) Pulse 83 Temp 36.7 C (98 F) (Temporal) Resp 15 Ht 6' 7.02 (2.007 m) Wt 198 lb 6.6 oz [...] XR hip left 2 or 3 views [[id number]] Collected: 12/22/241329 Order Status: Completed Updated: 12/22/241333 [...] 1:33 PM EDT XR chest 1 view [[id number]] Collected: 12/22/24 1323 Order Status: Completed Updated: [...] FL modified barium with video and speech [[id number]] Collected: 12/16/24 1515 Order Status: Completed Updated: 12/22/24 1150 Narrative: Interpreted By: Jayson Abdi and Patriarca Hannah STUDY: FL MODIFIED BARIUM SWALLOW STUDY;; 12/16/2024 9:38 am INDICATION: Signs/Symptoms:r/o any dysphagia. COMPARISON: None. ACCESSION NUMBER(S): [id number] ORDERING CLINICIAN: GIBSON MENDIOLA TECHNIQUE: MBSS completed. Informed verbal consent obtained prior to completion of exam. Trials of thin, nectar thick, puree, and regular solids given. Fluoroscopy time : 1.8 minutes. Total of 2800 images were provided for review. 100 mL barium contrast. CLUB MANAGER: Makayla Dunham Phone/Pager: Envoimoinscher SPEECH FINDINGS: Patient Name: Kevan La : 1975 Today's Date: 12/16/24 Start Time: 845 Stop Time: 915 Time Calculation (min): 30 min Modified Barium Swallow Study completed. Informed verbal consent obtained prior to completion of exam. Trials of thin liquid, mildly thick liquid, puree, and solids were given. CLUB MANAGER: Makayla Dunham, CLUB MANAGER Contact info: [employer] Reason for Referral: C/f aspiration/oropharyngeal dysphagia Patient Hx: Kevan La is a 49 y.o. 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 CLUB MANAGER Frequency: 2x per week Duration: 1-2 weeks [...] given on all accounts. Treatment Provided Today: CLUB MANAGER provided extensive education and training to pt/pt [...] further evaluation by medical specialists, as applicable. CLUB MANAGER Impressions with Severity Rating: Pt presenting with [...] obtained, suspect within normal limits for clearance CLUB MANAGER recommends cautious initiation of thin liquids and easy to chew diet. See additional PO intake guidelines outlined below. If pt demonstrates any change/decline in medical/mental/respiratory status please make NPO and alert CLUB MANAGER. Will continue to follow while in acute care setting to ensure diet tolerance and use of safe swallow guidelines. MD aware of recommendations Dayna's Penetration Aspiration Scale Thin Liquids: 3. PENETRATION with LOW ASPIRATION risk - contrast remains above vocal cords, visible residue [place] Thick Liquids: 3. PENETRATION with LOW ASPIRATION [...] Dilan Hester. This study was interpreted at [place], [place]. MACRO: None Signed by: Jayson Abdi 12/16/2024 4:54 PM Dictation workstation: [id number] MR femur left w and wo IV contrast [[id number]] Collected: 12/12/24 1334 Order Status: Completed Updated: 12/22/24 1150 Narrative: Interpreted By: Kong Armijo and Lawrence Austen STUDY: MRI of the left femur with and without contrast dated 12/12/2024. INDICATION: Gluteal abscess/malignancy. Biopsy result of squamous cell carcinoma. History of chronic hidradenitis suppurativa. COMPARISON: None. Correlation is made with 12/06/2024 and 11/19/2024 CT examinations. ACCESSION NUMBER(S): [id number] ORDERING CLINICIAN: GIBSON MENDIOLA TECHNIQUE: Multiplanar multisequence [...] Kong Armijo 12/12/2024 1:33 PM Dictation workstation: [id number] MR femur left wo IV contrast [[id number]] Collected: 12/12/24 1320 Order Status: Completed Updated: 12/22/24 1150 Narrative: Interpreted By: Kong Armijo and Lawrence Austen STUDY: MRI of the left femur with and without contrast dated 12/10/2024. 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 History of chronic hidradenitis suppurativa. COMPARISON: Correlation is made with 12/06/2024 and 11/19/2024 CT examinations. ACCESSION NUMBER(S): [id number] ORDERING CLINICIAN: TOYA RUBIO TECHNIQUE: Multiplanar multisequence MRI of the left femur was performed with and without intravenous gadolinium based contrast. FINDINGS: No images were obtained as the patient was unable to cooperate for the exam. Impression: No images were obtained as the patient was unable to cooperate for the exam. MACRO: None Signed by: Kong Armijo 12/12/2024 1:18 PM Dictation workstation: [id number] CT pelvis w IV contrast [[id number]] Collected: 12/06/24 1324 Order Status: Completed Updated: [...] Complexity: follow up within 7-14 calendar days (17334) [] Severe Complexity: follow up within 7 calendar days (57303) FOLLOW UP TESTING, PENDING RESULTS OR REFERRALS [...] 12/24/2024, 10:10 AM documented in this encounter [facility] 12-24-2024 Nurse Note See new oxy 5 mg one time dose order [facility] 12-24-2024 Nurse Note See new oxy 5 mg one time dose order Attending secure chatted due to patient asking for PRN pain meds with soft BP's. Awaiting answer Called and this nurse gave report to Lori NEWTON for patient. P/U time still 1230. Patient updated. Call received from . Patient has bed waiting at [facility] room [facility]. Nurse to nurse report number [phone]. Social work to arrange transportation in AM. Patient notified documented in this encounter [facility] 12-24-2024 Nurse Note Attending secure chatted due to patient asking for PRN pain meds with soft BP's. Awaiting answer [facility] 12-24-2024 Nurse Note Called and this nurse gave report to Lori NEWTON for patient. P/U time still 1230. Patient updated. [facility] 12-24-2024 Note Pharmacy to Dose Van comycin - Progress Note Lab Results Component Value Date CREATININE 1.04 12/24/2024 BUN 7 (L) 12/24/2024 WBC 14.8 (H) 12/24/2024 Doses, serum creatinine, and vancomycin levels interfaced automatically to [employer] and data has been analyzed and interpreted. [...] Alberto GarciaD Clinical Pharmacist Available via [employer] [facility] 12-24-2024 Plan of care note Problem: [...] family/caregiver to ask for assistance with transferring infant if caregiver noted to have fall risk [...] 12/23/20242013 by Diana Wise RN Outcome: Progressing [facility] 12-24-2024 Nurse Note Call received from . Patient has bed waiting at [facility] room [facility]. Nurse to nurse report number [phone]. Social work to arrange transportation in AM. Patient notified [facility] 12-23-2024 Plan of care note Problem: [...] monitored and maintained or improved Outcome: Progressing [facility] 12-23-2024 Consult note Associated Order (s): [...] hip and hidradenitis suppurativa who presented to [facility] 12/22 from [facility] for increased drainage and malodor of L hip wound. He is awaiting transfer to [facility]. Of note, patient recently hospitalized at 12/07 - 12/17 and was discharged to [facility] on Augmentin through 01/12. He had [...] Resource Strain: Medium Risk (12/07/2024) Received from [facility] Overall Financial Resource Strain (CARDIA) Difficulty of Paying Living Expenses: Somewhat hard Food Insecurity: No Food Insecurity (12/07/2024) Received from [facility] Hunger Vital Sign Worried About Running Out of Food in the Last Year: Never true Ran Out of Food in the Last Year: Never true Recent Concern: Food Insecurity - Food Insecurity Present (10/11/2024) Received from [facility] Hunger Vital Sign Worried About Running Out of Food in the Last Year: Sometimes true Ran Out of Food in the Last Year: Sometimes true Transportation Needs: No Transportation Needs (12/07/2024) Received from [facility] PRAPARE - Transportation Lack of Transportation (Medical): No Lack of Transportation (Non-Medical): No Physical Activity: Not on file Stress: Not on file Social Connections: Not on file Intimate Partner Violence: Not At Risk (12/07/2024) Received from [facility] Humiliation, Afraid, Rape, and Kick questionnaire Fear of Current or Ex-Partner: No Emotionally Abused: No Physically Abused: No Sexually Abused: No Housing Stability: High Risk (12/07/2024) Received from [facility] Housing Stability Vital Sign Unable to Pay [...] (98 F) (Oral) Resp 19 Ht 6' 7 (2.007 m) Wt 197 lb (89.4 kg) [...] Normal [] Scar/Lesion/Mass Inspection of teeth/lips/gums Dentition: [][place] Teeth []Dentures Lips/Gums: [x]Intact []Lesion Present Mucosa: [x][place] []Moist []Dry Neck: External Appearance Overall Appearance: [...] GLUCOSE 108* Procal: No results for input(s): PROCAL in the last 72 hours. CBC: Recent Labs 12/22/24 1253 WBC 19.4* HGB 8.4* HCT 26.8* PLT 698* MCV 80.5 RDW 17.3* ABGs: No results for input(s): PHART, ZSZ5MTO, PO2ART, XZG5DBU, SO2ART, L7NVGTYU in the last 72 hours. Lactic Acid: Recent Labs 12/22/24 1253 LACTATE 1.7 INR: No results for input(s): INR in the last 72 hours. Cardiac Injury Profile: No results for input(s): CKTOTAL, CKMB, TROPONINI in the last 72 hours. Labs in [...] COVID19 Legionella Ag: No results found for: LEGIONELLAPN Strep Ag: No results for input(s): STREPPNEUMO in the last 72 hours. Imaging- XR [...] Patient stable for GMF, awaiting transfer to [facility] Re-check lactic acid, BMP to monitor hypercalcemia Recommend continuing broad spectrum Vancomycin and Zosyn, pending wound and blood cultures Recommending continuing current pain regimen Remainder per primary service GI Prophylaxis: N/A DVT Prophylaxis: Lovenox 40 q 24hr - creatinine clearance >30 BMI Classification: Body mass index is 22.19 kg/m . normal BMI 18.5-24.9 Disposition: Stable for GMF, awaiting transfer to [facility] Cosigned by Noah Stewart DO at 12/23/2024 7:11 PM EDT Associated attestation - Noah Stewart DO - 12/23/2024 7:11 PM EDT I have personally performed a rnun-qj-oaal diagnostic evaluation on this patient on date of service 12/23/24. History, labs, imaging studies, and electronic medical record have been reviewed by me. This note documented by the []Critical Care Fellow [x]boilerhouse mechanic []BRITTNEY reflects my history, exam, and medical decision making. I have reviewed and agree with the care plan. Changes were made in the orders as necessary. ROS documentation was reviewed and negative unless otherwise stated in HPI. Additional pertinent interval history, ROS, and physical exam findings: AdmitDate = 12/22/2024 LOS: 0 Brought to ER from [facility]/S[facility] with concern for worsening left hip wound [...] other team members and physicians, excluding procedures. [facility] [employer] Work Phone: 12-23-2024 Consult note Associated Order (s): [...] hip and hidradenitis suppurativa who presented to [facility] 12/22 from [facility] for increased drainage and malodor of L hip wound. He is awaiting transfer to [facility]. Of note, patient recently hospitalized at 12/07 - 12/17 and was discharged to [facility] on Augmentin through 01/12. He had [...] Resource Strain: Medium Risk (12/07/2024) Received from [facility] Overall Financial Resource Strain (CARDIA) Difficulty of Paying Living Expenses: Somewhat hard Food Insecurity: No Food Insecurity (12/07/2024) Received from [facility] Hunger Vital Sign Worried About Running Out of Food in the Last Year: Never true Ran Out of Food in the Last Year: Never true Recent Concern: Food Insecurity - Food Insecurity Present (10/11/2024) Received from [facility] Hunger Vital Sign Worried About Running Out of Food in the Last Year: Sometimes true Ran Out of Food in the Last Year: Sometimes true Transportation Needs: No Transportation Needs (12/07/2024) Received from [facility] PRAPARE - Transportation Lack of Transportation (Medical): No Lack of Transportation (Non-Medical): No Physical Activity: Not on file Stress: Not on file Social Connections: Not on file Intimate Partner Violence: Not At Risk (12/07/2024) Received from [facility] Humiliation, Afraid, Rape, and Kick questionnaire Fear of Current or Ex-Partner: No Emotionally Abused: No Physically Abused: No Sexually Abused: No Housing Stability: High Risk (12/07/2024) Received from [facility] Housing Stability Vital Sign Unable to Pay [...] (98 F) (Oral) Resp 19 Ht 6' 7 (2.007 m) Wt 197 lb (89.4 kg) [...] Normal [] Scar/Lesion/Mass Inspection of teeth/lips/gums Dentition: [][place] Teeth []Dentures Lips/Gums: [x]Intact []Lesion Present Mucosa: [x][place] []Moist []Dry Neck: External Appearance Overall Appearance: [...] GLUCOSE 108* Procal: No results for input(s): PROCAL in the last 72 hours. CBC: Recent Labs 12/22/24 1253 WBC 19.4* HGB 8.4* HCT 26.8* PLT 698* MCV 80.5 RDW 17.3* ABGs: No results for input(s): PHART, QBD8BQU, PO2ART, AHY9HCV, SO2ART, Q8XSHORY in the last 72 hours. Lactic Acid: Recent Labs 12/22/24 1253 LACTATE 1.7 INR: No results for input(s): INR in the last 72 hours. Cardiac Injury Profile: No results for input(s): CKTOTAL, CKMB, TROPONINI in the last 72 hours. Labs in [...] COVID19 Legionella Ag: No results found for: LEGIONELLAPN Strep Ag: No results for input(s): STREPPNEUMO in the last 72 hours. Imaging- XR [...] Patient stable for GMF, awaiting transfer to [facility] Re-check lactic acid, BMP to monitor hypercalcemia Recommend continuing broad spectrum Vancomycin and Zosyn, pending wound and blood cultures Recommending continuing current pain regimen Remainder per primary service GI Prophylaxis: N/A DVT Prophylaxis: Lovenox 40 q 24hr - creatinine clearance >30 BMI Classification: Body mass index is 22.19 kg/m . normal BMI 18.5-24.9 Disposition: Stable for GMF, awaiting transfer to [facility] Cosigned by Noah Stewart DO at 12/23/2024 7:11 PM EDT Associated attestation - Noah Stewart DO - 12/23/2024 7:11 PM EDT I have personally performed a [id number]-ot-ibkk diagnostic evaluation on this patient on date of service 12/23/24. History, labs, imaging studies, and electronic medical record have been reviewed by me. This note documented by the []Critical Care Fellow [x]boilerhouse mechanic []BRITTNEY reflects my history, exam, and medical [...] physicians, excluding procedures. documented in this encounter [facility] 12-23-2024 Emergency department Note RN informed patient admitting team of patient b/p . Pt on the monitor. Pt declined feeling dizzy or nauseous. Pt want pants, RN is looking for pants [facility] 12-23-2024 Emergency department Note RN informed [...] Infection Pt arrives by life care from [facility] in [place], per life care pt has had wound [...] his facility about a week ago from [facility] as he has SCC treating with cemiplimab. [...] typical urinary output. History provided by: Patient precipitator operator used: No INFORMED PHOTO CONSENT: The patient has given verbal consent to have photos taken of left hip and inserted into their provider note as a part of their permanent medical record for purposes of documentation, treatment management, and/or medical review. All images taken were transmitted and stored on a secure [employer] Back Hanger Site located within a Media Folder Tab by a registered [employer] Application Device. See Media tab in Epic or photo as below. [...] (Oral) Resp 18 Ht 2.007 m (6' 7) Wt 89.4 kg (197 lb) SpO2 98% BMI 22.19 kg/m BSA 2.23 m Physical Exam Constitutional: General: He is not in acute distress. Appearance: He is ill-appearing. Comments: Large open draining wound with malodor upon my entering room HENT: Head: Normocephalic and atraumatic. Mouth/Throat: Lips: [place]. Mouth: Mucous membranes are moist. Cardiovascular: Rate [...] Procedure Abnormality Status --------- ------ Culture, Aerobic Bacteri...[[id number]] In process Anaerobic culture[[id number]] In process Please view results for these tests on the individual orders. CULTURE, AEROBIC BACTERIA WITH GRAM STAIN CULTURE ANAEROBIC COMPLETE URINALYSIS WITH REFLEX TO CULTURE Narrative: The following orders were created for panel order Urinalysis Complete with reflex to Culture. Procedure Abnormality Status --------- ------ Complete Urinalysis[[id number]] Normal Final result Please view results for these tests on the individual orders. Encounter Date: 12/06/24 ECG 12 lead Result Value Heart Rate 58 QRSD Interval 94 QT Interval 397 QTC Interval 390 P [place] 44 QRS [place] 55 T Wave [place] 56 NH Interval 142 Impression Sinus bradycardia Electronically Signed On 12-06-2024 11:47:13 EDT by Fer Hollins ED Course & MDM Medical Decision Making Presents to the emergency department for a worsening malodorous wound to his left hip that was recently treated at [facility]. He is failing outpatient antibiotic therapy of [...] by Dr. Mcfarlane for the MICU at [facility] [MJ] ED Course User Index [MJ] [...] made to ensure accuracy; however, inadvertent computerized 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 errors may be present.* TRAVIS Verduzco 12/22/24 RANDALL Verduzco CNP 12/22/24 1239 Cosigned by Levi Mack DO at 12/22/2024 6:43 PM EDT Emergency Department Encounter [facility] EMERGENCY DEPT Patient: Kevan La : [...] toward the left greater trochanter. He is long term had reported that he is currently on chemotherapy. He was hospitalized recently due to concerns of an abscess and had this managed by general surgery at [facility]. He receives most of his care for hidradenitis suppurativa at and is requesting to be transferred given that they are familiar with his care. Believe this is appropriate due to patient will require further evaluation by the surgery and primary team taking care of his chronic wound. We will continue IV antibiotics and IV pressors and transfer patient to [facility] for management. Diagnostics interpreted by me: I personally discussed the patient's management with other clinicians: Critical Care note: This patient was unstable and required constant supervision by me for 35 minutes during their visit. The patient's condition requiring intervention included: sepsis evaluation, multiple reassessments, vasopressors. This critical care time did not include time for procedures or time spent by the physicians assistant controller if they were caring for this patient. [...] for clarification.) Levi Mack DO Acute Care [facility] Levi Mack DO 12/22/24 1730 Levi Mack DO 12/22/24 1755 Pt signed out to me by Dr. Mack. Pt is awaiting transfer to for septic shock in setting of left buttock wound. Mani Dc DO 12/23/24 0115 I received this patient in signout who has been awaiting transfer to [facility] for septic shock in the setting of a left buttock wound requiring Levophed. I reviewed his labs and his medications and unfortunately has not been dosed with Zosyn since 1 PM. I reordered that and also timed for every 6 hours. He has been boarding in our emergency department for 16 hours now. We reached out to [facility] and they stated that there would [...] fluid responsive. I reached back out to [facility] to get him accepted to a regular nursing floor. I spoke with Dr Benitez at [facility] who accepted the patient to the regular nursing floor but they will still not have beds until most likely later this afternoon so will plan to admit him here medically so that the can be under the supervision and care of a hospitalist. Admitted in stable condition. Mary Calvert MD 12/23/24 0629 documented in this encounter [facility] 12-23-2024 Emergency department Note Pt moved into inpatient bed. Pt on the monitor. [facility] 12-23-2024 Emergency department Note Report given to Sunni NEWTON [facility] 12-23-2024 History and physical note Attending [...] levophed but is now off of. [facility] accepted him but waiting on bed until later this afternoon. He was boarded in our ED for 16hrs. Seen at bedside. Wounds are foul smelling. Pt states he was dropped off here from [facility] as it was the closest hospital. [...] Resource Strain: Medium Risk (12/07/2024) Received from [facility] Overall Financial Resource Strain (CARDIA) Difficulty of Paying Living Expenses: Somewhat hard Food Insecurity: No Food Insecurity (12/07/2024) Received from [facility] Hunger Vital Sign Worried About Running Out of Food in the Last Year: Never true Ran Out of Food in the Last Year: Never true Recent Concern: Food Insecurity - Food Insecurity Present (10/11/2024) Received from [facility] Hunger Vital Sign Worried About Running Out of Food in the Last Year: Sometimes true Ran Out of Food in the Last Year: Sometimes true Transportation Needs: No Transportation Needs (12/07/2024) Received from [facility] PRAPARE - Transportation Lack of Transportation (Medical): No Lack of Transportation (Non-Medical): No Physical Activity: Not on file Stress: Not on file Social Connections: Not on file Intimate Partner Violence: Not At Risk (12/07/2024) Received from [facility] Humiliation, Afraid, Rape, and Kick questionnaire Fear of Current or Ex-Partner: No Emotionally Abused: No Physically Abused: No Sexually Abused: No Housing Stability: High Risk (12/07/2024) Received from [facility] Housing Stability Vital Sign Unable to Pay [...] (98 F) (Oral) Resp 18 Ht 6' 7 (2.007 m) Wt 197 lb (89.4 kg) [...] PROT 7.2 PT/INR: No results for input(s): PROTIME, INR in the last 72 hours. CARDIAC ENZYMES: No results for input(s): TROPONINI in the last 72 hours. Procalcitonin: No results found for: PROCAL Urine Culture: No results found for this or any previous visit. COVID-19 PCR: No results for input(s): COVID19 in the last 72 hours. I reviewed: [...] transfer to when bed available were his junior copywriter, 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 Holding off [...] - DO NOT do CPR, intubation] [_] [DNR-SETTER MACHINE - Comfort care only] [_] DNR form [...] Clarita Hay DO Division of Hospitalist Medicine [facility] [employer] Phone: 12-23-2024 Note Attending History an d [...] levophed but is now off of. [facility] accepted him but waiting on bed until later this afternoon. He was boarded in our ED for 16hrs. Seen at bedside. Wounds are foul smelling. Pt states he was dropped off here from [facility] as it was the closest hospital. [...] Resource Strain: Medium Risk (12/07/2024) Received from [facility] Overall Financial Resource Strain (CARDIA) Difficulty of Paying Living Expenses: Somewhat hard Food Insecurity: No Food Insecurity (12/07/2024) Received from [facility] Hunger Vital Sign Worried About Running Out of Food in the Last Year: Never true Ran Out of Food in the Last Year: Never true Recent Concern: Food Insecurity - Food Insecurity Present (10/11/2024) Received from [facility] Hunger Vital Sign Worried About Running Out of Food in the Last Year: Sometimes true Ran Out of Food in the Last Year: Sometimes true Transportation Needs: No Transportation Needs (12/07/2024) Received from [facility] PRAPARE - Transportation Lack of Transportation (Medical): No Lack of Transportation (Non-Medical): No Physical Activity: Not on file Stress: Not on file Social Connections: Not on file Intimate Partner Violence: Not At Risk (12/07/2024) Received from [facility] Humiliation, Afraid, Rape, and Kick questionnaire Fear of Current or Ex-Partner: No Emotionally Abused: No Physically Abused: No Sexually Abused: No Housing Stability: High Risk (12/07/2024) Received from [facility] Housing Stability Vital Sign Unable to Pay [...] Negative for fever, (more content not included)... [facility] 12-23-2024 History and physical note Attending [...] levophed but is now off of. [facility] accepted him but waiting on bed until later this afternoon. He was boarded in our ED for 16hrs. Seen at bedside. Wounds are foul smelling. Pt states he was dropped off here from [facility] as it was the closest hospital. [...] Resource Strain: Medium Risk (12/07/2024) Received from [facility] Overall Financial Resource Strain (CARDIA) Difficulty of Paying Living Expenses: Somewhat hard Food Insecurity: No Food Insecurity (12/07/2024) Received from [facility] Hunger Vital Sign Worried About Running Out of Food in the Last Year: Never true Ran Out of Food in the Last Year: Never true Recent Concern: Food Insecurity - Food Insecurity Present (10/11/2024) Received from [facility] Hunger Vital Sign Worried About Running Out of Food in the Last Year: Sometimes true Ran Out of Food in the Last Year: Sometimes true Transportation Needs: No Transportation Needs (12/07/2024) Received from [facility] PRAPARE - Transportation Lack of Transportation (Medical): No Lack of Transportation (Non-Medical): No Physical Activity: Not on file Stress: Not on file Social Connections: Not on file Intimate Partner Violence: Not At Risk (12/07/2024) Received from [facility] Humiliation, Afraid, Rape, and Kick questionnaire Fear of Current or Ex-Partner: No Emotionally Abused: No Physically Abused: No Sexually Abused: No Housing Stability: High Risk (12/07/2024) Received from [facility] Housing Stability Vital Sign Unable to Pay [...] (89 F) (Oral) Resp 18 Ht 6' 7 (2.007 m) Wt 197 lb (89.4 kg) [...] PROT 7.2 PT/INR: No results for input(s): PROTIME, INR in the last 72 hours. CARDIAC ENZYMES: No results for input(s): TROPONINI in the last 72 hours. Procalcitonin: No results found for: PROCAL Urine Culture: No results found for this or any previous visit. COVID-19 PCR: No results for input(s): COVID19 in the last 72 hours. I reviewed: [...] transfer to when bed available were his junior copywriter, 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 Holding off [...] - DO NOT do CPR, intubation] [_] [DNR-SETTER MACHINE - Comfort care only] [_] DNR form [...] Clarita Hay DO Division of Hospitalist Medicine [facility] documented in this encounter [facility] 12-23-2024 Emergency department Note Received report from Parish NEWTON [facility] 12-23-2024 Emergency department Note Levo drip turned off. BP 102/64. [facility] 12-22-2024 Emergency department Note Levo titrated to 2mcg/min. Patient BP remains stable. [facility] 12-22-2024 Emergency department Note Levo titrated to 4mcg/min. BP remains stable. Patient asymptomatic. [facility] 12-22-2024 Emergency department Note Levo titrated to 6mcg/min. BP remains stable. Patient asymptomatic. [facility] 12-22-2024 Emergency department Note Report given to Parish NEWTON [facility] 12-22-2024 Emergency department Note Dressing change completed with ABD pads, 2x2s and tape. Pt repostioned and saturated chucks removed [facility] 12-22-2024 Emergency department Note Messaged pharmacy regarding missing vancomycin dose [facility] 12-22-2024 Emergency department Note Report given to Mary NEWTON for lunch coverage [facility] 12-22-2024 Physician Emergency department Note Images from the original note were not included. HPI Chief Complaint Patient presents with Wound Infection Pt arrives by life care from [facility] in [place], [facility] life care pt has had wound infection [...] his facility about a week ago from [facility] as he has SCC treating with cemiplimab. [...] typical urinary output. History provided by: Patient precipitator operator used: No INFORMED PHOTO CONSENT: The patient has given verbal consent to have photos taken of left hip and inserted into their provider note as a part of their permanent medical record for purposes of documentation, treatment management, and/or medical review. All images taken were transmitted and stored on a secure [employer] Back Hanger Site located within a Media Folder Tab by a registered [employer] Device. See Media tab in Epic or photo as below. [place] Coma Scale Score: 15 Patient History No [...] (Oral) Resp 18 Ht 2.007 m (6' 7) Wt 89.4 kg (197 lb) SpO2 98% BMI 22.19 kg/m BSA 2.23 m Physical Exam Constitutional: General: He is not in acute distress. Appearance: He is ill-appearing. Comments: Large open draining wound with malodor upon my entering room HENT: Head: Normocephalic and atraumatic. Mouth/Throat: Lips: [place]. Mouth: Mucous membranes are moist. Cardiovascular: Rate [...] Procedure Abnormality Status --------- ------ Culture, Aerobic Bacteri...[[id number]] In process Anaerobic culture[[id number]] In process Please view results for these tests on the individual orders. CULTURE, AEROBIC BACTERIA WITH GRAM STAIN CULTURE ANAEROBIC COMPLETE URINALYSIS WITH REFLEX TO CULTURE Narrative: The following orders were created for panel order Urinalysis Complete with reflex to Culture. Procedure Abnormality Status --------- ------ Complete Urinalysis[[id number]] Normal Final result Please view results for these tests on the individual orders. Encounter Date: 12/06/24 ECG 12 lead Result Value Heart Rate 58 QRSD Interval 94 QT Interval 397 QTC Interval 390 P [place] 44 QRS [place] 55 T Wave [place] 56 NH Interval 142 Impression Sinus bradycardia Electronically Signed On 12-06-2024 11:47:13 EDT by Fer Hollins ED Course & MDM Medical Decision Making Presents to the emergency department for a worsening malodorous wound to his left hip that was recently treated at [facility]. He is failing outpatient antibiotic therapy of [...] by Dr. Mcfarlane for the MICU at [facility] [[facility]J] ED Course User Index [MJ] Levi Mack DO [NA] Ronna Leon, SUPERVISOR RECORD PRESS - PAYROLL SPECIALIST Diagnoses as of 12/22/241822 Sepsis, due [...] made to ensure accuracy; however, inadvertent computerized 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 errors may be present.* TRAVIS Verduzco 12/22/24 RANDALL Verduzco CNP 12/22/24 1759 Cosigned by Levi Mack DO at 12/22/2024 6:43 PM EDT [facility] 12-22-2024 Physician Emergency department Note Emergency [...] toward the left greater trochanter. He is long term had reported that he is currently on chemotherapy. He was hospitalized recently due to concerns of an abscess and had this managed by general surgery at [facility]. He receives most of his care for hidradenitis suppurativa at and is requesting to be transferred given that they are familiar with his care. Believe this is appropriate due to patient will require further evaluation by the surgery and primary team taking care of his chronic wound. We will continue IV antibiotics and IV pressors and transfer patient to [facility] for management. Diagnostics interpreted by me: I personally discussed the patient's management with other clinicians: Critical Care note: This patient was unstable and required constant supervision by me for 35 minutes during their visit. The patient's condition requiring intervention included: sepsis evaluation, multiple reassessments, vasopressors. This critical care time did not include time for procedures or time spent by the physicians assistant controller if they were caring for this patient. [...] for clarification.) Levi Mack DO Acute Care [facility] Levi Mack DO 12/22/24 173 Levi Mack DO 12/22/24 175 [employer] Phone: 12-22-2024 Physician Emergency department Note Pt signed out to me by Dr. Mack. Pt is awaiting transfer to for septic shock in setting of left buttock wound. Mani Dc DO 12/23/24 0115 [employer] Phone: 12-22-2024 Physician Emergency department Note I received this patient in signout who has been awaiting transfer to [facility] for septic shock in the setting of a left buttock wound requiring Levophed. I reviewed his labs and his medications and unfortunately has not been dosed with Zosyn since 1 PM. I reordered that and also timed for every 6 hours. He has been boarding in our emergency department for 16 hours now. We reached out to [facility] and they stated that there would [...] fluid responsive. I reached back out to [facility] to get him accepted to a regular nursing floor. I spoke with Dr Benitez at [facility] who accepted the patient to the regular nursing floor but they will still not have beds until most likely later this afternoon so will plan to admit him here medically so that the can be under the supervision and care of a hospitalist. Admitted in stable condition. Mary Calvert MD 12/23/24628 [employer] 12-22-2024 Progress note Formatting of t his note might be different from the original. Culture reviewed. Awaiting sensitivity results [employer] Work Phone: 12-20-2024 History of Present illness [...] malignancy- asymptomatic today. RTC per protocol Kevannicolasa Praodalexander understands the plan and has no further questions. he will contact us if there are any new concerns or change in clinical picture. Sreedhar Jiang MD Attending Physician [facility] Floor Covering Contractorsenior lead software engineer [employer] [facility] [employer] documented in this encounter [facility] Work Phone: 12-19-2024 History of Present illness Narrative 12/09/24 1000 Discharge Planning Living Arrangements Other (Comment);Alone (admitted from [facility]) Support Systems Family members;Other (Comment) (SNF staff, SNF SW) Assistance Needed skilled, PT/OT Type of Residence care home facility Do you have animals or pets at home? No Home or Post Acute Services Post acute facilities (Rehab/SNF/etc) (return to [facility]) Type of Post Acute Facility Services care home Expected Discharge Disposition SNF Does the patient need discharge transport arranged? Yes RoundTrip coordination needed? Yes Has discharge transport been arranged? No Patient Choice Provider Choice list and [facility] website (https://medicare.gov/care-compar e#search) for post-acute Quality and Resource Measure Data were provided and reviewed with: Patient Patient / Family choosing to utilize agency / facility established prior to hospitalization Yes SW met with pt to introduce role and discuss discharge planning. Pt admitted from [facility]; pt reports that he's been there on and off since September. Pt confirmed demographic and insurance details. SW contact details written on the whiteboard in pt room. Return referral sent to [facility]. SW will follow. Fer [facility]go [facility] 12/09/2024 1040 Per [facility], pt's current auth expires on 12/11. Further discharge planning pending updates from the care team. SW will follow. Fer [facility] 12/11/2024 1030 Pt auth for [facility] expires today. Clinical updates sent to facility. Further discharge planning pending updates from the care team. SW will follow. [facility] 12/16/2024 0955 Once PT and OT see pt for updated notes, [facility] will initiate precert. SW will follow. [facility] 12/17/2024 1030 PT and OT saw pt this morning. Clinicals and therapy notes sent to facility. Facility was notified to initiate precert for pt to return. Care team notified SW that pt reported he doesn't want to return to [facility]. SANTO met with pt to check in and he reports that he has been telling everyone for days that he would prefer not to return to [facility]. SANTO offered to give pt [...] for discharge. SW will follow. Fer [facility] 12/17/2024 1120 Per facility: Auth Submitted - Pending Reference # [id number] Liaison is confirming that there are no barriers to providing transport for pt's oncology appt on Monday. SW will follow. Fer [facility] 12/18/2024 1245 [facility] reports that pt insurance is asking for PT note and a wound care note. SW let the facility note that yesterday's PT note was sent to them yesterday and that a request would be put in for a new wound care note. SW will follow. Fer [facility] 12/18/2024 1540 Wound care note sent to facility via CarePort. SW will follow. [facility] 12/19/2024 0920 Per facility: Auth has been approved - [id number] - 4.3.25 to 4. Care team notified. SW met with pt and let him know that he will discharge today. Transport requested in RoundTrip for 1100. SW asked facility to confirm that his transport for his oncology appt is set up. SW will follow. Fer [facility] 12/19/2024 1000 Transport confirmed for 1300 with [facility]. Care team, pt, and facility notified. Once received, number for report will be sent to bedside nurse. Pt requested to speak to a member of the care team; care team notified. SW will follow. [facility] 12/19/2024 1015 Number for report is [phone] and was sent to bedside nurse. SW will follow. [facility] Kevan La is a 49 [...] medications to patient prior to discharge via [facility] pharmacy. Prescriptions will need to be sent 48-72 hours prior to discharge so that a prior authorization can be completed. Discharge date: unknown pending acute issues Patient has an appointment with Outpatient [facility] TRAVIS Talavera 12/30/24 SIGNATURE: TRAVIS Rodas PAGER/CONTACT: Contact information: [facility] Monday-Monday 8 AM-5 PM [employer] Secure chat or pager [phone]. After hours and weekends: pager [phone] SUBJECTIVE: Interval Events: Pt reports pain is [...] UNK primary Family: Supportive though live in [place] Performance status: Moderate limitations due to pain Joys/meaning/strength: Family and [place] Understanding of health: 12/08: Demonstrates good prognostic [...] Surrogate decision maker is brother Omkar La [phone] Signature and billing: Medical complexity was high [...] of shared electronic medical record/secure chat/email or [id number]. We will continue to follow Please contact us for additional questions or concerns. SIGNATURE: TRAVIS Rodas PAGER/CONTACT: Contact information: [facility] Monday-Monday 8 AM-5 PM [employer] Secure chat or pager [phone]. After hours and weekends: pager [phone] 12/09/24 1000 Discharge Planning Living Arrangements Other (Comment);Alone (admitted from [facility]) Support Systems Family members;Other (Comment) (SNF staff, SNF SW) Assistance Needed skilled, PT/OT Type of Residence care home facility Do you have animals or pets at home? No Home or Post Acute Services Post acute facilities (Rehab/SNF/etc) (return to [facility]) Type of Post Acute Facility Services care home Expected Discharge Disposition SNF Does the patient need discharge transport arranged? Yes RoundTrip coordination needed? Yes Has discharge transport been arranged? No Patient Choice Provider Choice list and [facility] website (https://medicare.gov/care-compar e#search) for post-acute Quality and Resource Measure Data were provided and reviewed with: Patient Patient / Family choosing to utilize agency / facility established prior to hospitalization Yes SW met with pt to introduce role and discuss discharge planning. Pt admitted from [facility]; pt reports that he's been there on and off since September. Pt confirmed demographic and insurance details. SW contact details written on the whiteboard in pt room. Return referral sent to [facility]. SW will follow. [facility] 12/09/2024 1040 Per [facility], pt's current auth expires on 12/11. Further discharge planning pending updates from the care team. SW will follow. [facility] 12/11/2024 1030 Pt auth for [facility] expires today. Clinical updates sent to facility. Further discharge planning pending updates from the care team. SW will follow. [facility] 12/16/2024 0955 Once PT and OT see pt for updated notes, [facility] will initiate precert. SW will follow. [facility] 12/17/2024 1030 PT and OT saw pt this morning. Clinicals and therapy notes sent to facility. Facility was notified to initiate precert for pt to return. Care team notified SW that pt reported he doesn't want to return to [facility]. SW met with pt to check in and he reports that he has been telling everyone for days that he would prefer not to return to [facility]. SW offered to give pt [...] for discharge. SW will follow. [facility] 12/17/2024 1120 Per facility: Auth Submitted - Pending Reference # [id number] Liaison is confirming that there are no barriers to providing transport for pt's oncology appt on Monday. SW will follow. [facility] 12/18/2024 1245 [facility] reports that pt insurance is asking for PT note and a wound care note. SW let the facility note that yesterday's PT note was sent to them yesterday and that a request would be put in for a new wound care note. SW will follow. [facility] 12/18/2024 1540 Wound care note sent to facility via CarePort. SW will follow. [facility] Images from the original note were not included. Internal Medicine Daily Progress Note Subjective Interval events: NAEO. Pain stable not requiring IV pain meds. No other concerns or complaints at this time. Objective Vitals: Visit Vitals BP 96/66 Pulse 70 Temp 36.5 C (97.7 F) (Temporal) Resp 16 Intake/Output Summary (Last 24 hours) at 12/18/2024 0712 Last data filed at 12/18/2024 0507 Gross [...] Date: 12/16/2024 Interpreted By: Jayson Abdi and Chrala Benavides STUDY: [place] MODIFIED BARIUM SWALLOW STUDY;; 12/16/2024 9:38 am INDICATION: Signs/Symptoms:r/o any dysphagia. COMPARISON: None. ACCESSION NUMBER(S): [id number] ORDERING CLINICIAN: GIBSON MENDIOLA TECHNIQUE: MBSS completed. Informed verbal consent obtained prior to completion of exam. Trials of thin, nectar thick, puree, and regular solids given. Fluoroscopy time : 1.8 minutes. Total of 2800 images were provided for review. 100 mL barium contrast. CLUB MANAGER: Makayla Dunham Phone/Pager: Envoimoinscher SPEECH FINDINGS: Patient Name: Kevan La : 1975 Today's Date: 12/16/24 Start Time: 845 Stop Time: 915 Time Calculation (min): 30 min Modified Barium Swallow Study completed. Informed verbal consent obtained prior to completion of exam. Trials of thin liquid, mildly thick liquid, puree, and solids were given. CLUB MANAGER: MINDY Camp Contact info: [employer] Reason for Referral: C/f aspiration/oropharyngeal dysphagia Patient Hx: Kevan La is a 49 y.o. male with history of hidradenitis supprativa refractory to numerous medications, invasive SCC dx in Oct 2024 both affecting the LLE who was transferred to [facility] due to concerns for worsening infection in the LLE. Pt is stable with no s/s of systemic infection. High suspicion for necrotic oncologic mass over fluid collection. No indication for I&D. Requested [facility] op, recommend requesting radiology overread. Consider MRI [...] eating Small bites/sips Alternate food and liquids CLUB MANAGER PLAN: Skilled CLUB MANAGER Services: Skilled CLUB MANAGER intervention for dysphagia is warranted. CLUB MANAGER Frequency: 2x per week Duration: 1-2 weeks [...] given on all accounts. Treatment Provided Today: CLUB MANAGER provided extensive education and training to pt/pt [...] further evaluation by medical specialists, as applicable. CLUB MANAGER Impressions with Severity Rating: Pt presenting with [...] obtained, suspect within normal limits for clearance CLUB MANAGER recommends cautious initiation of thin liquids and easy to chew diet. See additional PO intake guidelines outlined below. If pt demonstrates any change/decline in medical/mental/respiratory status please make NPO and alert CLUB MANAGER. Will continue to follow while in acute care setting to ensure diet tolerance and use of safe swallow guidelines. MD aware of recommendations Rosenbek's Penetration Aspiration Scale Thin Liquids: 3. PENETRATION with LOW ASPIRATION risk - contrast remains above vocal cords, visible residue [place] Thick Liquids: 3. PENETRATION with LOW ASPIRATION [...] Dilan Hester. This study was interpreted at [facility], [place], [place]. MACRO: None Signed by: Jayson Abdi 12/16/2024 4:54 PM Dictation workstation: [id number] Oncology Hx Diagnosis: Squamous cell carcinoma of [...] 12/18/2024 4:00 PM EDT Associated attestation - Altagracia, Mack Luna MD - 12/18/2024 4:00 PM EDT I [...] their tolerance level. Patient agreed to advise cement loader. The cement loader counseled the patient on the risks of [...] resp. rate 16, height 2.006 m (6' 6.98), weight 89.4 kg (197 lb 1.5 oz), [...] Signs/Symptoms:r/o any dysphagia. COMPARISON: None. ACCESSION NUMBER(S): [id number] ORDERING CLINICIAN: GIBSON MENDIOLA TECHNIQUE: MBSS completed. Informed verbal consent obtained prior to completion of exam. Trials of thin, nectar thick, puree, and regular solids given. Fluoroscopy time : 1.8 minutes. Total of 2800 images were provided for review. 100 mL barium contrast. CLUB MANAGER: Makayla Dunham Phone/Pager: Envoimoinscher SPEECH FINDINGS: Patient Name: Kevan La : 1975 Today's Date: 12/16/24 Start Time: 845 Stop Time: 915 Time Calculation (min): 30 min Modified Barium Swallow Study completed. Informed verbal consent obtained prior to completion of exam. Trials of thin liquid, mildly thick liquid, puree, and solids were given. CLUB MANAGER: MINDY Camp Contact info: [employer] Reason for Referral: C/f aspiration/oropharyngeal dysphagia Patient Hx: Kevan La is a 49 y.o. 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 CLUB MANAGER Frequency: 2x per week Duration: 1-2 weeks [...] given on all accounts. Treatment Provided Today: CLUB MANAGER provided extensive education and training to pt/pt [...] further evaluation by medical specialists, as applicable. CLUB MANAGER Impressions with Severity Rating: Pt presenting with [...] obtained, suspect within normal limits for clearance CLUB MANAGER recommends cautious initiation of thin liquids and easy to chew diet. See additional PO intake guidelines outlined below. If pt demonstrates any change/decline in medical/mental/respiratory status please make NPO and alert CLUB MANAGER. Will continue to follow while in acute care setting to ensure diet tolerance and use of safe swallow guidelines. MD aware of recommendations Rosenbek's Penetration Aspiration Scale Thin Liquids: 3. PENETRATION with LOW ASPIRATION risk - contrast remains above vocal cords, visible residue [place] Thick Liquids: 3. PENETRATION with LOW ASPIRATION [...] Dilan Hester. This study was interpreted at [facility], [place], [place]. MACRO: None Signed by: Jayson Abdi 12/16/2024 4:54 PM Dictation workstation: [id number] ECG 12 Lead Result Date: 12/16/2024 Normal [...] 12/06/2024 and 11/19/2024 CT examinations. ACCESSION NUMBER(S): [id number] ORDERING CLINICIAN: GIBSON MENDIOLA TECHNIQUE: Multiplanar multisequence [...] Kong Armijo 12/12/2024 1:33 PM Dictation workstation: [id number] MR femur left wo IV contrast Result Date: 12/12/2024 Interpreted By: Kong Armijo, and Mason Montague STUDY: MRI of the left femur with and without contrast dated 12/10/2024. 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 History of chronic hidradenitis suppurativa. COMPARISON: Correlation is made with 12/06/2024 and 11/19/2024 CT examinations. ACCESSION NUMBER(S): [id number] ORDERING CLINICIAN: TOYA RUBIO TECHNIQUE: Multiplanar multisequence MRI of the left femur was performed with and without intravenous gadolinium based contrast. FINDINGS: No images were obtained as the patient was unable to cooperate for the exam. No images were obtained as the patient was unable to cooperate for the exam. MACRO: None Signed by: Kong Armijo 12/12/2024 1:18 PM Dictation workstation: [id number] CT pelvis w IV contrast Result Date: [...] carcinoma. COMPARISON: CT pelvis 11/08/2024. ACCESSION NUMBER(S): [id number] ORDERING CLINICIAN: CLAUDIO PLUNKETT TECHNIQUE: CT of the chest, abdomen, and pelvis was performed. Contiguous axial images were obtained at 3 mm slice thickness through the chest, abdomen and pelvis. Coronal and sagittal reconstructions at 3 mm slice thickness were performed. 90 ML of Omnipaque 350 was administered intravenously without immediate complication. FINDINGS: CHEST: LUNG/PLEURA/LARGE AIRWAYS: Kxin-mk-mvtjxxif upper lobe predominant centrilobular and paraseptal emphysema. [...] Attention on follow-up examinations is recommended. 5. Fhfs-gphcltp-emha-right skin thickening extending from the sacral region to the proximal thigh, in keeping with patient's background of hydradenitis suppurativa. 6. Wece-ce-wjthyjdn upper lobe predominant centrilobular and paraseptal emphysema. I personally reviewed the images/study and I agree with the findings as stated by Elenita Munroe MD (PGY-2). This study was interpreted at [facility], [place], [place]. MACRO: None Signed by: Ravin Hyatt 11/19/2024 4:54 PM Dictation workstation: [id number] Assessment/Plan Assessment & Plan Gluteal abscess [facility] Integrative Medicine Symptom Management program offers multi-disciplinary [...] (available on ). Music therapy, art therapy, music composer and pet therapy offered to pt, pt declined; pt stated the oxidation operator has been following. Left gluteal pain: pain related to malignancy, lesions Pain is well-controlled Defer to supportive oncology team for adequate PO/IV pain regimen Recommend integrative therapy modalities as pt allows: -Acupuncture; provided pt education today. Pt declined services, requesting follow up when next available -Acupressure, stefa sha -Gentle bodywork and stretching as tolerated -Art therapy -Music therapy -End Trimmer -Pet therapy Altered Mood: Anxiety and/or depression r/t health concerns History of anxiety/depression -Recommend integrative medicine modalities as listed above Mindfulness Brittney: AMDtx, Calm, Headspace, Insight Timer Guided Imagery Meditation (15 min in the morning) - consider mindfulness (Mindfulness based Stress Reduction) Apps such as CALM or Headspace Deep breathing: Alternate nostril breathing and Deep abdominal breathing (5 min) in the morning [facility] - Guided Meditation Thank you for allowing us to participate in the care of this patient. Integrative Medicine Team will continue to follow as needed. Please contact team with any questions or concerns. TRAVIS Patel (available by [employer]) [facility] Integrative Medicine I spent 45 minutes in the care of this patient which included chart review, interviewing patient/family, discussion with primary team, coordination of care, and documentation. Medical Decision Making was high level due to high complexity of problems, extensive data review, and high risk of management/treatment. 12/09/24 1000 Discharge Planning Living Arrangements Other (Comment);Alone (admitted from [facility]) Support Systems Family members;Other (Comment) (SNF staff, SNF SW) Assistance Needed skilled, PT/OT Type of Residence care home facility Do you have animals or pets at home? No Home or Post Acute Services Post acute facilities (Rehab/SNF/etc) (return to [facility]) Type of Post Acute Facility Services care home Expected Discharge Disposition SNF Does the [...] and discuss discharge planning. Pt admitted from [facility]; pt reports that he's been there on and off since September. Pt confirmed demographic and insurance details. SW contact details written on the whiteboard in pt room. Return referral sent to [facility]. SW will follow. [facility] 12/09/2024 1040 Per [facility], pt's current auth expires on 12/11. Further discharge planning pending updates from the care team. SW will follow. [facility] 12/11/2024 1030 Pt auth for [facility] expires today. Clinical updates sent to facility. Further discharge planning pending updates from the care team. SW will follow. [facility] 12/16/2024 0955 Once PT and OT see pt for updated notes, [facility] will initiate precert. SW will follow. Fer [facility] 12/17/2024 1030 PT and OT saw pt this morning. Clinicals and therapy notes sent to facility. Facility was notified to initiate precert for pt to return. Care team notified SW that pt reported he doesn't want to return to [facility]. SW met with pt to check in and he reports that he has been telling everyone for days that he would prefer not to return to [facility]. SW offered to give pt a SNF [...] for discharge. SW will follow. Fer [facility] 12/17/2024 1120 Per facility: Auth Submitted - Pending Reference # [id number] Liaison is confirming that there are no barriers to providing transport for pt's oncology appt on Monday. SANTO will follow. Fer [facility] Physical Therapy Treatment Patient Name: Kevan La Today's Date: 12/17/2024 Room: [address] [place] [address] Time Calculation Start Time: 938 Stop Time: [...] Decreased tolerance for upright activites Outcome Measures: [facility] Basic Mobility Turning from your back to [...] Kevan La : 1975 Date: 12/17/24 Room: [address] [place] [address] Time Calculation Start Time: 850 Stop Time: 901 Time Calculation (min): 11 min Assessment: OT [...] Comments: BUE WFL via ADLs Outcome Measures: [facility] Daily Activity Putting on and taking off [...] 12/17/24 at 10:18 AM Manuela Elmore OTR/L [phone] Images from the original note were not [...] Signs/Symptoms:r/o any dysphagia. COMPARISON: None. ACCESSION NUMBER(S): [id number] ORDERING CLINICIAN: GIBSON MENDIOLA TECHNIQUE: MBSS completed. Informed verbal consent obtained prior to completion of exam. Trials of thin, nectar thick, puree, and regular solids given. Fluoroscopy time : 1.8 minutes. Total of 2800 images were provided for review. 100 mL barium contrast. CLUB MANAGER: Makayla Dunham Phone/Pager: Secure Chat SPEECH FINDINGS: Patient Name: Kevan La : 1975 Today's Date: 12/16/24 Start Time: 845 Stop Time: 915 Time Calculation (min): 30 min Modified Barium Swallow Study completed. Informed verbal consent obtained prior to completion of exam. Trials of thin liquid, mildly thick liquid, puree, and solids were given. CLUB MANAGER: MINDY Camp Contact info: [employer] Reason for Referral: C/f aspiration/oropharyngeal dysphagia Patient Hx: Kevan La is a 49 y.o. 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 CLUB MANAGER Frequency: 2x per week Duration: 1-2 weeks [...] given on all accounts. Treatment Provided Today: CLUB MANAGER provided extensive education and training to pt/pt [...] further evaluation by medical specialists, as applicable. CLUB MANAGER Impressions with Severity Rating: Pt presenting with [...] obtained, suspect within normal limits for clearance CLUB MANAGER recommends cautious initiation of thin liquids and easy to chew diet. See additional PO intake guidelines outlined below. If pt demonstrates any change/decline in medical/mental/respiratory status please make NPO and alert CLUB MANAGER. Will continue to follow while in acute care setting to ensure diet tolerance and use of safe swallow guidelines. aware of recommendations [place]'s Penetration Aspiration Scale Thin Liquids: 3. PENETRATION with LOW ASPIRATION risk - contrast remains above vocal cords, visible residue [place] Thick Liquids: 3. PENETRATION with LOW ASPIRATION [...] Radiology section of this report signed by Jyason Abdi MD. Swallow evaluation as dictated above by speech pathology. I personally reviewed the images/study and I agree with the findings as stated by resident Dilan Hester. This study was interpreted at [place], [place]. MACRO: None Signed by: Jayson Abdi 12/16/2024 4:54 PM Dictation workstation: [id number] Oncology Hx Diagnosis: Squamous cell carcinoma of [...] weeks ago s/p I&D, BCx with marta exmohindera s/p Unasyn complete 10/28/2024 ::CT 12/06: Large [...] discussing and analyzing lyrics to the song, Dancing in the Dark by Rony Sr. Evaluation: Pt responded by shifting gaze in the direction of MTI. Pt also reponded by creating a mantra from the song, Dancing in the Dark and processing the song verbally. Pt related the song to his life specifically with the uncertainties and stressors life's presenting. Pt responded by choosing from a list of songs to end the session with and thanked MTI. Follow-up: MTI will continue to f/u throughout pt's admission. Patient Comments: trapped Education Documentation No documentation found. Physical Therapy Therapy Communication Note Patient Name: Kevan La Department: [facility] Room: [address] [place] [address] Today's Date: 12/16/2024 Discipline: Physical Therapy PT Missed Visit: Yes Missed Visit Reason: Missed Visit Reason: Patient sleeping (attempted twice and pt sleeping . would not wake up to name . Will reattempt as schedule permits.) Missed Time: Attempt Comment: Occupational Therapy Therapy Communication Note Patient Name: Kevan La Department: [facility] Room: [address] [place] [address] Today's Date: 12/16/2024 Discipline: Occupational Therapy OT Missed Visit: Yes Missed Visit Reason: Patient sleeping (Attempt 2x this AM; pt in sound sleep/declines OT this AM; will reattempt as schedule permits) Missed Time: Attempt Janny Andres (OTR/L, OTD) Inpatient Occupational Therapist Rehab Office: [phone] 12/09/24 1000 Discharge Planning Living Arrangements Other (Comment);Alone (admitted from [facility]) Support Systems Family members;Other (Comment) (SNF staff, SNF SW) Assistance Needed skilled, PT/OT Type of Residence care home facility Do you have animals or pets at home? No Home or Post Acute Services Post acute facilities (Rehab/SNF/etc) (return to [facility]) Type of Post Acute Facility Services care home Expected Discharge Disposition SNF Does the patient need discharge transport arranged? Yes RoundTrip coordination needed? Yes Has discharge transport been arranged? No Patient Choice Provider Choice list and [facility] website (https://medicare.gov/care-compar e#search) for post-acute Quality and Resource Measure Data were provided and reviewed with: Patient Patient / Family choosing to utilize agency / facility established prior to hospitalization Yes SW met with pt to introduce role and discuss discharge planning. Pt admitted from [facility]; pt reports that he's been there on and off since September. Pt confirmed demographic and insurance details. SW contact details written on the whiteboard in pt room. Return referral sent to [facility]. SW will follow. Fer [facility] 12/09/[facility] 1040 Per [facility], pt's current auth expires on 12/11. Further discharge planning pending updates from the care team. SW will follow. Fer [facility] 12/11/2024 1030 Pt auth for [facility] expires today. Clinical updates sent to facility. Further discharge planning pending updates from the care team. SW will follow. Fer [facility] 12/16/2024 0955 Once PT and OT see pt for updated notes, [facility] will initiate precert. SW will follow. Fer Hidalgo [facility] SUPPORTIVE AND PALLIATIVE ONCOLOGY INPATIENT FOLLOW-UP SERVICE DATE: 12/16/24 Updates and Recommendations (12/16/24): Change gabapentin 300mg PO BID Continue scheduled methadone 10mg u6l--jxuftwa 12/12/24, eligible for increase 12/17/24 Discontinue bisacodyl PRN Start scheduled bisacodyl 10mg NH once daily Consider one time enemas as [...] 2mg PO TID Continue scheduled methadone 10mg m0l--akqobnh 12/12/24, eligible for increase 12/17/24 Continue oxycodone [...] Discontinue bisacodyl PRN Start scheduled bisacodyl 10mg NH once daily Consider one time enemas as needed, per primary discretion [effective last admission at resolving constipation] Goal to have BM without straining q48-72h, adjust regimen as needed Encourage mobility as tolerated, PT/OT following Disposition: Please start the process of having prior authorization with meds to beds deliver medications to patient prior to discharge via [facility] pharmacy. Prescriptions will need to be sent 48-72 hours prior to discharge so that a prior authorization can be completed. Discharge date pending resolution of acute hospital issues. Patient has an appointment with outpatient Supportive Oncology with Astrid Hawley CNP, on 12/30/24. SIGNATURE: Jami Lance APRN-NEHAL PAGER/CONTACT: Contact information: Supportive and Palliative Oncology Monday-Monday 8 AM-5 PM [employer] Secure chat or pager [phone]. After hours and weekends: pager [phone] == SUBJECTIVE: Pain Assessment: Location: Left gluteus, LLE Duration: Constant Characteristics: Ratin/10, it's alright Descriptors: Throbbing, sharp, and burning Aggravating: Movement, pressure Relieving: Analgesics, positioning, and modifying activity Interference with Function: Somewhat Opioid Requirements Past 24h opioid requirements: (12/15-12/16, [id number]) methadone 10mg x 3 = 30mg oxycodone [...] of Care/Advance Care Planning: (Per Emile Segovia, PAYROLL SPECIALIST's, note on 12/08/24) Patient's current clinical condition, including diagnosis, prognosis, and management plan, and goals of care were discussed. Life limiting disease: SCC of UNK primary Family: Supportive though live in [place] Performance status: Moderate limitations due to pain Joys/meaning/strength: Family and [place] Understanding of health: Demonstrates good prognostic understanding [...] Decision maker: Surrogate decision maker is brotherOmkar ([phone]) == Signature and billing: Medical complexity was [...] of shared electronic medical record/secure chat/email or [id number]. We will continue to follow. Please contact us for additional questions or concerns. SIGNATURE: TRAVIS Huizar PAGER/CONTACT: Contact information: Supportive and Palliative Oncology Monday-Monday 8 AM-5 PM, [employer] chat or pager [phone]. After hours and weekends: pager [phone] Images from the original note were not [...] days course) - MBS complete, no concerns. CLUB MANAGER recommends thin and easy to chew - [...] affecting the LLE who was transferred to [facility] due to concerns for worsening infection in [...] solid foods the last few days, reporting cotton mouth in the mornings and feeling a stuck sensation. No issues with liquids. Pt is edentulous, strong volitional cough. Pt given straw sips of water x5, 3 oz water protocol, 4 oz applesauce, steven doone cookie. Pt with no overt s/s of aspiration upon timely completion of 3 oz protocol. Pt with adequate clearance of puree, reports some difficulty with cookie feeling stuck, pointing to hyoid bone region. No s/s of aspiration at bedside. CLUB MANAGER recommends thin liquid and easy to chew [...] 01/15/25 Status: Goal Initiated this date Plan: CLUB MANAGER Services Indicated: Yes Frequency: 2x week Discussed POC with patient CLUB MANAGER - OK to Discharge Pain: 0-10 0 [...] 12/06/2024 and 11/19/2024 CT examinations. ACCESSION NUMBER(S): [id number] ORDERING CLINICIAN: GIBSON MENDIOLA TECHNIQUE: Multiplanar multisequence [...] Kong Armijo 12/12/2024 1:33 PM Dictation workstation: [id number] Oncology Hx Diagnosis: Squamous cell carcinoma of [...] OT Treatment Patient Name: Kevan La Department: [facility] Room: [address] [place] [address]- Today's Date: 12/13/2024 Time Calculation Start Time: [...] guard Trials/Comments 1: 3x throughout session; pt alfaos safe body mechanics Transfers 2 Transfer From 2: Bed to Transfer to 2: Chair with arms (in bathroom) Technique 2: (Ambulatory) Transfer Device 2: (no AD) Transfer Level of Assistance 2: Contact guard Outcome Measures: [facility] Daily Activity Putting on and taking off [...] (OTR/L, OTD) Inpatient Occupational Therapist Rehab Office: [phone] Images from the original note were not [...] 12/06/2024 and 11/19/2024 CT examinations. 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 November 29 initial diagnosis December 09: To start chemotherapy with cemiplimab, 21-day cycles Assessment and Plan: Kevannicolasa La is a 49 y.o. male with [...] bit brighter,today . Eating lunch and playing [employer] Hip lesion unchanged Antibiotics amoxicillin-pot clavulanate - [...] Augmentin 875 bid on discharge. Would plan dyaycourse as he starts his immunotherapy. ID [...] medications to patient prior to discharge via [facility] pharmacy. Prescriptions will need to be sent 48-72 hours prior to discharge so that a prior authorization can be completed. Discharge date: unknown pending acute issues Patient has an appointment with Outpatient Supportive Oncology TRAVIS Talavera 12/17/24 SIGNATURE: TRAVIS Rodas PAGER/CONTACT: Contact information: Supportive and Palliative Oncology Monday-Monday 8 AM-5 PM [employer] Secure chat or pager [phone]. After hours and weekends: pager [phone] SUBJECTIVE: Interval Events: Pt was able to [...] UNK primary Family: Supportive though live in [place] Performance status: Moderate limitations due to pain Joys/meaning/strength: Family and [place] Understanding of health: 12/08: Demonstrates good prognostic [...] Surrogate decision maker is brother Omkar La [phone] Signature and billing: Medical complexity was high [...] of shared electronic medical record/secure chat/email or [id number]. We will continue to follow Please contact us for additional questions or concerns. SIGNATURE: TRAVIS Rodas PAGER/CONTACT: Contact information: Supportive and Palliative Oncology Monday-Monday 8 AM-5 PM [employer] Secure chat or pager [phone]. After hours and weekends: pager [phone] Images from the original note were not [...] 12/06/2024 and 11/19/2024 CT examinations. ACCESSION NUMBER(S): [id number] ORDERING CLINICIAN: GIBSON MENDIOLA TECHNIQUE: Multiplanar multisequence [...] Kong Armijo 12/12/2024 1:33 PM Dictation workstation: [id number] MR femur left wo IV contrast Result Date: 12/12/2024 Interpreted By: Kong Armijo and Lawrence Austen STUDY: MRI of the left femur with and without contrast dated 12/10/2024. 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 History of chronic hidradenitis suppurativa. COMPARISON: Correlation is made with 12/06/2024 and 11/19/2024 CT examinations. ACCESSION NUMBER(S): [id number] ORDERING CLINICIAN: TOYA RUBIO TECHNIQUE: Multiplanar multisequence MRI of the left femur was performed with and without intravenous gadolinium based contrast. FINDINGS: No images were obtained as the patient was unable to cooperate for the exam. No images were obtained as the patient was unable to cooperate for the exam. MACRO: None Signed by: Kong Armijo 12/12/2024 1:18 PM Dictation workstation: [id number] Oncology Hx Diagnosis: Squamous cell carcinoma of [...] discharge (no plans for IV abx at [facility]) #Invasive SCC # Left Gluteus lesions ::biopsy [...] use RW in home per report - will not fit) Evaluation/Treatment Tolerance: Patient limited by pain Medical [...] MATHEW and flexed foward posture) Outcome Measures: [facility] Basic Mobility Turning from your back to [...] 2:05 PM Latricia Yousif, PT Rehab Office: [phone] Spiritual Care Visit Spiritual Care Request Spiritual Care Annotation Annotation: Supply Chain Generalist visited with the patient, who is known to this Supply Chain Generalist from prior admissions. Patient shared he was feeling very tired and not in the mood to talk. Patient requested a Bible and a follow-up visit. Supply Chain Generalist was able to bring a Bible for the patient. Supply Chain Generalist will follow-up tomorrow. Please reach out with any needs/concerns. Rev. Mack Schmitz, Supportive Oncology Supply Chain Generalist 12/09/24 1000 Discharge Planning Living Arrangements Other (Comment);Alone (admitted from [facility]) Support Systems Family members;Other (Comment) (SNF staff, SNF SW) Assistance Needed skilled, PT/OT Type of Residence care home facility Do you have animals or pets at home? No Home or Post Acute Services Post acute facilities (Rehab/SNF/etc) (return to [facility]) Type of Post Acute Facility Services care home Expected Discharge Disposition SNF Does the [...] and discuss discharge planning. Pt admitted from [facility]; pt reports that he's been there on and off since September. Pt confirmed demographic and insurance details. SW contact details written on the whiteboard in pt room. Return referral sent to [facility]. SW will follow. Fer Hidalgo [facility] 12/09/2024 1040 Per [facility], pt's current auth expires on 12/11. Further discharge planning pending updates from the care team. SW will follow. Fer Hidalgo [facility] 12/11/2024 1030 Pt auth for SNF [facility] expires today. Clinical updates sent to facility. Further discharge planning pending updates from the care team. SW will follow. Fer Hidalgo [facility] DIRECTOR TRANSPORTATION Kevan La is a 49 y.o. male [...] Visit Type: Follow-up visit Session Start Time: 144 Session End Time: 1445 Intervention Delivery: In-person [...] Name: Kevan La Today's Date: 12/09/2024 Room: [address] [place] [address] Time Calculation Start Time: 1509 Stop Time: [...] identified impaired coping skills and goal of, not going crazy. Patient would benefit from skilled OT services [...] and hospital stays. Prior Function: Level of [place]: Needs assistance with ADLs, Needs assistance with [...] Within Functional Limits, , and Outcome Measures: [facility] Daily Activity Putting on and taking off [...] 3:51 PM Shereen Santoyo OT Rehab Office: [phone] Physical Therapy Physical Therapy Evaluation & Treatment Patient Name: Kevan La Department: [facility] Room: [address] [place] [address] Today's Date: 12/09/2024 Time Calculation Start Time: [...] Home Living: Home Living Type of Home: Detention facility Home Living Comments: Pt reports he has been in hospital or SNF since Prior Level of Function: Prior Function Per Pt/Caregiver Report Level of Columbia: Needs assistance with ADLs, Needs assistance with homemaking (Assist for LE dressing and bathing) Ambulatory Assistance: Needs assistance (Using FWW. 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 Outcome Measures: [facility] Basic Mobility Turning from your back to [...] Planning Living Arrangements Other (Comment);Alone (admitted from [facility]) Support Systems Family members;Other (Comment) (SNF staff, SNF SW) Assistance Needed skilled, PT/OT Type of Residence care home facility Do you have animals or pets at home? No Home or Post Acute Services Post acute facilities (Rehab/SNF/etc) (return to [facility]) Type of Post Acute Facility Services care home Expected Discharge Disposition SNF Does the [...] and discuss discharge planning. Pt admitted from [facility]; pt reports that he's been there on and off since September. Pt confirmed demographic and insurance details. SW contact details written on the whiteboard in pt room. Return referral sent to [facility]. SW will follow. Fer MALAVE DIRECTOR TRANSPORTATION 12/09/2024 1040 Per [facility], pt's current auth expires on 12/11. Further discharge planning pending updates from the care team. SW will follow. Fer Hidalgo [facility] DIRECTOR TRANSPORTATION Physical Therapy Therapy Communication Note Patient Name: Kevan La Department: [facility] Room: [address] [place] [address] Today's Date: 12/09/2024 Discipline: Physical Therapy PT [...] on board. Gibson Mendiola MD, PhD Hematology/Oncology [facility] Medication History Review Kevan La is a 49 y.o. male admitted for Gluteal abscess. Pharmacy reviewed the patient's zctta-ig-hrxheamln medications and allergies for accuracy. Medications ADDED: None Medications CHANGED: Ibuprofen every 6 hours to every 4 hours Medications REMOVED: Vitamin D3 10,000 units The list below reflects the updated ASSET SPECIALIST list. Prior to Admission Medications Prescriptions Last [...] Allergies Patient declines M2B at discharge. Sources: [facility] -- [facility] Heme/onc AVS from 11/29 Additional Comments: ASSET SPECIALIST medication list updated per [facility] SNF medication list Medication flow sheet from 11/08-12/06 Please review additional comments above for additional comments Connie Choi PharmD Transitions of Care Pharmacist 12/08/24 Secure Chat preferred If no response call [employer] or [employer] 12/08/24 1221 Discharge Planning Living Arrangements Other (Comment) (Currently at [facility]) Support Systems Family members (Family all lives in [place], so supportive but distant) Type of Residence care home facility Home or Post Acute Services Post acute facilities (Rehab/SNF/etc) Type of Post Acute Facility Services care home Expected Discharge Disposition SNF Patient Choice Patient / Family choosing to utilize agency / facility established prior to hospitalization Yes Met with patient bedside, he is currently from [facility] in [place]; where he admitted Medicaid pending in 11/12; [...] which he states they all live in [place]. This engineering technical writer suggests as well talk to the SW/CM at the SNF and coordinating with a [facility] Collar Shaper Operator, that there may be local resources to [...] on 12/09/2024 Exposure target: AUC24 (range)400-600 mg/L.hr ONV69-87: 570 mg/L.hr AUC24,ss: 549 mg/L.hr Probability of [...] and invasive SCC who is returning to [facility] 12/08/2024 as a transfer from [facility] regarding gluteal fluid collection. 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 November 29 initial diagnosis December 09: To start chemotherapy with cemiplimab, 21-day cycles Previous Hospital Course Notably, the pt was admitted at [facility] 11/10-11/27 after her arrived from [facility] and CT revealed large ulcerative wound at [...] Subjective Today he presents as transfer from [facility] (where he was brought to from [facility]) with reports that his wound looks worse. [...] resp. rate 16, height 2.006 m (6' 6.98), weight 89.4 kg (197 lb 1.5 oz), [...] and invasive SCC who is returning to [facility] 11/10/2024 as a transfer from [facility] regarding gluteal wound with worsening odor [...] SCC of the L hip transferred to [facility] after presenting to [facility] ED with worsening pain found to have gluteal fluid collection. Unclear whether abscess vs necrosis. MRI to further evaluate. Adjust antiemetic regimen for ongoing nausea Toya Rubio MD Staff, Gastrointestinal Medical Oncology [facility] Vancomycin Dosing by Pharmacy- INITIAL Kevan La [...] on 12/07/2024 Exposure target: AUC24 (range)400-600 mg/L.hr SSN23-72: 419 mg/L.hr AUC24,ss: 556 mg/L.hr Probability of [...] Carin Kim PharmD documented in this encounter [facility] Work Phone: 12-19-2024 Miscellaneous Notes The patient's [...] dressing change Outcome: Progressing Flowsheets (Taken 12/17/2024 2330) Decreased wound size/increased tissue granulation at next [...] Monitor/record intake including meals Reassess MST if lokie driver not consulted 12/15/2024 1037 by Cristiana Simon RN Outcome: Progressing Flowsheets (Taken 12/15/2024 1037) Promote/optimize nutrition: Assist with feeding Discuss with provider if NPO > 2 days Offer water/supplements/favorite foods Consume > 50% meals/supplements Monitor/record intake including meals Reassess MST if lokie driver not consulted Goal: Promote skin healing 12/15/2024 1037 by Cristiana Simon RN Flowsheets (Taken 12/15/2024 1037) Promote skin healing: Assess skin/pad under line(s)/device(s) Ensure correct size (line/device) and apply per beater operator instructions Protective dressings over bony prominences Rotate device position/do not position patient on device Turn/reposition every 2 hours/use positioning/transfer devices 12/15/2024 1037 by Cristiana Simon RN Outcome: Progressing Flowsheets (Taken 12/15/2024 1037) Promote skin healing: Assess skin/pad under line(s)/device(s) Ensure correct size (line/device) and apply per beater operator instructions Protective dressings over bony prominences Rotate [...] and invasive SCC who is returning to [facility] 11/10/2024 as a transfer from [facility] regarding gluteal fluid collection. Notably, the pt was admitted at [facility] 11/10-11/27 after her arrived from [facility] and CT revealed large ulcerative wound at [...] pt restarted on zosyn. Was discharged to [facility] on Augmentin for one month. Today he presents as transfer from [facility] (where he was brought to from [facility]) with reports that his wound looks worse. [...] 12/06/2024 [facility] 1975 [id number] Exam Date/Time: 12/06/2024 12:46 Procedure: CT PELVIS [...] and invasive SCC who is returning to [facility] 11/10/2024 as a transfer from [facility] regarding gluteal wound with worsening odor [...] safe from injury documented in this encounter [facility] Work Phone: 12-18-2024 Consult note Formatting of [...] Injury Buttock Right (Active) Wound Image 12/18/24 145 Site Assessment Non-blanchable erythema;Yellow;Sloughing 12/18/24 145 Leda-Wound Assessment Blanchable erythema 12/18/24 1457 Pressure Injury Stage U 12/18/24 1457 Wound Length (cm) 2 cm 12/18/24 1457 Wound Width (cm) 1.8 cm 12/18/24 1457 Wound Surface Area (cm^2) 3.6 cm^2 12/18/24 1457 Margins Poorly defined 12/18/24 0854 Drainage Description Clear 12/18/24 145 Drainage Amount Scant 12/18/24 1457 Dressing Silicone [...] by: Cristiana Evans APRN-NEHAL Consult ordered by: Mack Frias MD Reason [...] before oncologic resection. Integrative hematology/oncology consulted by [facility] oncology team for non-pharmacological symptom management of depression and pain. Pt resting in bed at time of exam, no family at bedside. Integrative hematology/oncology consult team introduced to pt. Non-pharmacological symptom management interventions reviewed, including: Reiki, meditation, mindfulness practices, guided imagery, as well as acupuncture, acupressure, and gentle bodywork. Pt declined integrative heme/onc services. Music therapy, art therapy, music composer and pet therapy offered to pt, pt declined; pt stated the oxidation operator has been following. Information obtained from chart [...] resp. rate 16, height 2.006 m (6' 6.98), weight 89.4 kg (197 lb 1.5 oz), [...] 12/06/2024 and 11/19/2024 CT examinations. ACCESSION NUMBER(S): [id number] ORDERING CLINICIAN: GIBSON MENDIOLA TECHNIQUE: Multiplanar multisequence [...] Kong Armijo 12/12/2024 1:33 PM Dictation workstation: [id number] MR femur left wo IV contrast Result Date: 12/12/2024 Interpreted By: Kong Armijo and Lawrence Austen STUDY: MRI of the left femur with and without contrast dated 12/10/2024. 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 History of chronic hidradenitis suppurativa. COMPARISON: Correlation is made with 12/06/2024 and 11/19/2024 CT examinations. ACCESSION NUMBER(S): [id number] ORDERING CLINICIAN: TOYA RUBIO TECHNIQUE: Multiplanar multisequence MRI of the left femur was performed with and without intravenous gadolinium based contrast. FINDINGS: No images were obtained as the patient was unable to cooperate for the exam. No images were obtained as the patient was unable to cooperate for the exam. MACRO: None Signed by: Kong Armijo 12/12/2024 1:18 PM Dictation workstation: [id number] CT pelvis w IV contrast Result Date: [...] carcinoma. COMPARISON: CT pelvis 11/08/2024. ACCESSION NUMBER(S): [id number] ORDERING CLINICIAN: CLAUDIO PLUNKETT TECHNIQUE: CT of the chest, abdomen, and pelvis was performed. Contiguous axial images were obtained at 3 mm slice thickness through the chest, abdomen and pelvis. Coronal and sagittal reconstructions at 3 mm slice thickness were performed. 90 ML of Omnipaque 350 was administered intravenously without immediate complication. FINDINGS: CHEST: LUNG/PLEURA/LARGE AIRWAYS: Npzz-wn-qzjegzqn upper lobe predominant centrilobular and paraseptal emphysema. [...] Attention on follow-up examinations is recommended. 5. Efbz-duffrqp-zudy-right skin thickening extending from the sacral region to the proximal thigh, in keeping with patient's background of hydradenitis suppurativa. 6. Lsvc-rk-ppesjdwz upper lobe predominant centrilobular and paraseptal emphysema. I personally reviewed the images/study and I agree with the findings as stated by Elenita Munroe MD (PGY-2). This study was interpreted at [facility], [place], [place]. MACRO: None Signed by: Ravin Hyatt 11/19/2024 4:54 PM Dictation workstation: [id number] Assessment/Plan Introduction to Integrative Medicine: Spoke with pt at bedside. Patient seemed to appreciate the extra layer of support. Integrative Medicine was introduced as a service for patients with serious illness to help with symptoms through non-pharmacological management, such as mindfulness, acupuncture, and gentle bodywork. Such interventions can assist with symptoms such as anxiety, fatigue, nausea, depression and pain. The [facility] Integrative Medicine Symptom Management program offers multi-disciplinary [...] integrative heme/onc services. Music therapy, art therapy, music composer and pet therapy offered to pt, pt declined; pt stated the oxidation operator has been following. Left gluteal pain: pain related to malignancy, lesions Pain is well-controlled Defer to supportive oncology team for adequate PO/IV pain regimen Recommend integrative therapy modalities as pt allows: -Acupuncture; provided pt education today. Pt declined services, requesting follow up when next available -Acupressure, gua sha -Gentle bodywork and stretching as tolerated -Art therapy -Music therapy -End Trimmer -Pet therapy Altered Mood: Anxiety and/or depression r/t health concerns History of anxiety/depression -Recommend integrative medicine modalities as listed above Mindfulness Brittney: AMDtx, Calm, Headspace, Insight Timer Guided Imagery Meditation (15 min in the morning) - consider mindfulness (Mindfulness based Stress Reduction) Apps such as CALM or Headspace Deep breathing: Alternate nostril breathing and Deep abdominal breathing (5 min) in the morning [facility] - Guided Meditation Thank you for allowing us to participate in the care of this patient. Integrative Medicine Team will continue to follow as needed. Please contact team with any questions or concerns. TRAVIS Patel (available by [employer]) [facility] Inpatient Integrative Medicine I spent 45 minutes [...] Nonreactive Nonreactive Final No results found for: HEPCABINIT, HEPCAB, HCVPCRQUANT Microbiology Susceptibility data from last 90 [...] reports having a good appetite during and ASSET SPECIALIST. ASSET SPECIALIST would drink ensure and a pastry for breakfast; lunch and dinner were larger meals per pt report. Pt reports nausea this morning. Food Allergy: (none) Anthropometrics: Height: 200.6 cm (6' 6.98) Weight: 89.4 kg (197 lb 1.5 oz) [...] Energy Estimated Needs in 24 hours (kCal): (7635-3325) Method for Estimating Needs: ABW x 28-32 [...] left gluteal region who was transferred to [facility] due to concerns for worsening left gluteal [...] affecting the LLE who was transferred to [facility] due to concerns of worsening LLE infection. [...] Little MD PGY-3 General Surgery Surgical Oncology [id number] Cosigned by Kong Mina MD at 12/09/2024 8:32 AM EDT Associated Order(s): Inpatient consult to [facility] Adult Supportive Oncology SUPPORTIVE AND PALLIATIVE ONCOLOGY [...] medications to patient prior to discharge via [facility] pharmacy. Prescriptions will need to be sent 48-72 hours prior to discharge so that a prior authorization can be completed. Discharge date: unknown pending acute issues Patient has an appointment with Outpatient Supportive Oncology TRAVIS Talavera 12/17/24 SIGNATURE: TRAVIS Rodas PAGER/CONTACT: Contact information: Supportive and Palliative Oncology Monday-Monday 8 AM-5 PM Epic Secure chat or pager [phone]. After hours and weekends: pager [phone] Inpatient consult to [facility] Adult Supportive Oncology Consult performed by: TRAVIS Rodas Consult ordered by: Mine Nunez MD PALLIATIVE MEDICINE OUTPATIENT PROVIDER: TRAVIS Talavera- has NPV 12/17 CURRENT ATTENDING PROVIDER: Toya Rubio MD Medical Oncologist: Sreedhar Jiang MD Radiation Oncologist: No care team foreman to display Primary Physician: No primary care provider on file. None REASON FOR CONSULT/CHIEF CONSULT COMPLAINT: pain management Subjective HISTORY OF PRESENT ILLNESS: Kevan La is a 49 y.o. male diagnosed with squamous cell carcinoma. PMH significant for refractory hidradenitis supprativa (HS), chronic gluteal wound and hypotension. Admitted 12/07/2024 for further evaluation and management of cellulitis in [facility]. Supportive and Palliative Oncology is consulted for [...] alone. Has supportive brother and parents in [place], [place]. 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 Social History: reports that he [...] Value Ventricular Rate 77 Atrial Rate 77 NH Interval 146 QRS Duration 108 QT Interval 368 QTC Calculation(Bazett) 416 P Green[place] 55 R Greenock 72 T [place] 66 QRS Count 13 Q Onset 211 [...] limitations due to pain Joys/meaning/strength: Family and [place] Understanding of health: Demonstrates good prognostic understanding [...] Surrogate decision maker is brother Omkar La [phone] Supportive Interventions: Interventions: Music Therapy: referral placed, [...] of shared electronic medical record/secure chat/email or [id number]. We will continue to follow. Please contact us for additional questions or concerns. SIGNATURE: TRAVIS Rodas PAGER/CONTACT: Contact information: Supportive and Palliative Oncology Monday-Monday 8 AM-5 PM [employer] Secure chat or pager [phone]. After hours and weekends: pager [phone] documented in this encounter [facility] Work Phone: 12-17-2024 Hospital Discharge instructions Fer [...] to feel better! documented in this encounter [facility] Work Phone: 12-16-2024 Procedure note Associated Ord er(s): CLUB MANAGER MODIFIED BARIUM SWALLOW EVALUATION Speech-Language Pathology Inpatient Modified Barium Swallow Study Patient Name: Kevan La : 1975 Today's Date: 12/16/24 Start Time: 845 Stop Time: 915 Time Calculation (min): 30 min Modified Barium Swallow Study completed. Informed verbal consent obtained prior to completion of exam. Trials of thin liquid, mildly thick liquid, puree, and solids were given. CLUB MANAGER: MINDY Camp Contact info: Al Detal Reason for Referral: C/f aspiration/oropharyngeal dysphagia Patient Hx: Kevan La is a 49 y.o. 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 CLUB MANAGER Frequency: 2x per week Duration: 1-2 weeks [...] given on all accounts. Treatment Provided Today: CLUB MANAGER provided extensive education and training to pt/pt [...] further evaluation by medical specialists, as applicable. CLUB MANAGER Impressions with Severity Rating: Pt presenting with [...] obtained, suspect within normal limits for clearance CLUB MANAGER recommends cautious initiation of thin liquids and easy to chew diet. See additional PO intake guidelines outlined below. If pt demonstrates any change/decline in medical/mental/respiratory status please make NPO and alert CLUB MANAGER. Will continue to follow while in acute care setting to ensure diet tolerance and use of safe swallow guidelines. MD aware of recommendations Rosenbek's Penetration Aspiration Scale Thin Liquids: 3. PENETRATION with LOW ASPIRATION risk - contrast remains above vocal cords, visible residue] [place] Thick Liquids: 3. PENETRATION with LOW ASPIRATION risk - contrast remains above vocal cords, visible residue] Puree: 1. NO ASPIRATION & NO PENETRATION - no aspiration, contrast does not enter airway Solids: 1. NO ASPIRATION & NO PENETRATION - no aspiration, contrast does not enter airway documented in this encounter [facility] Work Phone: 12-10-2024 Nurse Note Patient asked [...] his care by main team citing he's not a child I offered him some comfort and advice on managing his emotions. My plan is to stay on top of pain mgnt as it seems to dictate his day. Safety promotion, getting a commode at bedside, bed alarm, and education. When time permits I will offer some divisional activities. documented in this encounter [facility] Work Phone: 12-07-2024 History and physical note [facility] ACUTE CARE SURGERY - CONSULT Patient Name: Kevan La Admit Date: 12/07/2024 : 1975 AGE: 49 y.o. GENDER: male TODAY'S ASSESSMENT AND PLAN OF CARE: ASSESSMENT: Kevan La is a 49 y.o. male with history of hidradenitis supprativa refractory to numerous medications, invasive SCC dx in Oct 2024 both affecting the LLE who was transferred to [facility] due to concerns for worsening infection in the LLE. Pt is stable with no s/s of systemic infection. High suspicion for necrotic oncologic mass over fluid collection. No indication for I&D. Requested outside images from rads op, recommend requesting radiology overread. Consider MRI to further evaluation of soft tissue/mass Discussed with Dr. Garrison. Kishore Sweeney MD PGY-1 General Surgery Acute Care Surgery [id number] Subjective CHIEF COMPLAINT/REASON FOR CONSULT: Chief Complaint: change in quantity and quality of drainage from know HS HPI: Kevan La is a 49 y.o. male with history of hidradenitis supprativa refractory to numerous medications, invasive SCC dx in Oct 2024 both affecting the LLE who was transferred to [facility] due to concerns for worsening infection in [...] 12/08/2024 1:05 AM EDT Pts imaging from [place] and last imaging at [facility] reviewed. Recommend having our radiology team review [place] CT and provide comparison to last CT [...] hypotension. Today he presents as transfer from [facility], came in from SNF, reporting worsening wound. States for the last week he has noticed increased odor and discharge (unclear what color). Endorses taking his Augmentin as instructed. Denies any worsening pain. States during this time he has felt fatigued and endorses nausea and NBNB vomiting. Denies any fever, chills, or any other symptoms. Notably, the pt was admitted at [facility] 11/10-11/27 after her arrived from [facility] and CT revealed large ulcerative wound at [...] not apply directly to surgery site 10/21/24 Farnces Watts MD enoxaparin (Lovenox) 40 mg/0.4 mL [...] and invasive SCC who is returning to [facility] 11/10/2024 as a transfer from [facility] regarding gluteal fluid collection. Labs Cr [...] Anemia #Folate Deficiency :: Hgb 10.4 at [facility], Hgb 8.8 on admission, Hgb 9.0 [...] 5:04 PM EDT documented in this encounter [facility] Work Phone: 12-07-2024 Nurse Note [phone] called report to ambulance is here to pick patient up [facility] 12-07-2024 Nurse Note [phone] called report to ambulance is here to pick patient up 1114 long term RN called regarding updates, updated on patient status/plan of care documented in this encounter [facility] 12-07-2024 Note Attestation signed by Juvenal [...] carcinoma, chronic kidney diseaset hat presented to [facility] on 12/06/2024 with increased drainage from [...] to his established general surgery team at [facility]. Transfer was arranged. Patient was maintained on [...] Time of Discharge Wound culture, Blood cultures [facility] 12-07-2024 Hospital course Narrative Internal Medicine: [...] carcinoma, chronic kidney diseaset hat presented to [facility] on 12/06/2024 with increased drainage from [...] to his established general surgery team at [facility]. Transfer was arranged. Patient was maintained on [...] on discharge >30min documented in this encounter [facility] 12-07-2024 Emergency department Note Report to AMAN Galindo. [facility] 12-07-2024 Emergency department Note Report to [...] a text message from that he can early check in and questioned if transfer was arranged. This [...] distances. Pt is A&Ox4. Emergency Department Encounter [facility] EMERGENCY DEPT Patient: [...] for clarification.) Fer Hollins MD Acute Care [facility] Fer Hollins MD 12/06/24 1120 documented in this encounter [facility] 12-07-2024 Emergency department Note Patient provided urinal per request. Respirations even and unlabored. No acute distress noted. [facility] 12-07-2024 Emergency department Note Report from AMAN Galindo. [facility] 12-07-2024 Note 1114 long term RN called regarding updates, updated on patient status/plan of care [facility] 12-07-2024 Nurse Note 1114 long term RN called regarding updates, updated on patient status/plan of care [facility] 12-07-2024 Emergency department Note Report to Josie/AMAN and patient moved to room 9 with all belongings and breakfast tray [facility] 12-07-2024 Emergency department Note Patient moving from 43 to 9 now [facility] 12-07-2024 Emergency department Note AMAN/Margarita ordered breakfast for the patient per his preference [facility] 12-07-2024 Emergency department Note Requested pharmacy to retime Vanc due to 3 hour administration of Zosyn (& both ordered at same time) T [facility] 12-07-2024 Consult note Formatting of th is note is different from the original. Images from the original note were not included. Pharmacy Managed Vancomycin Dosing Service Consult Note Consult Date: 12/07/24 Patient Name: Kevan La Allergies: Banana Age: 49 y.o. Sex: male Estimated body mass index is 22.19 kg/m as calculated from the following: Height as of this encounter: 2.007 m (6' 7). Weight as of this encounter: 89.4 kg [...] creatinine, and vancomycin levels interfaced automatically to [employer] and data has been analyzed and interpreted. [...] RPh Clinical Pharmacist Available via Secure Chat [facility] 12-07-2024 Consult note Formatting of th is note is different from the original. Images from the original note were not included. Pharmacy Managed Vancomycin Dosing Service Consult Note Consult Date: 12/07/24 Patient Name: Kevan La Allergies: Banana Age: 49 y.o. Sex: male Estimated body mass index is 22.19 kg/m as calculated from the following: Height as of this encounter: 2.007 m (6' 7). Weight as of this encounter: 89.4 kg [...] creatinine, and vancomycin levels interfaced automatically to [employer] and data has been analyzed and interpreted. [...] via Secure Chat documented in this encounter [facility] 12-07-2024 History and physical note Internal [...] carcinoma by the general surgery team at [facility]. He is scheduled to be transferred to [...] 92 96 Procal: No results for input(s): PROCAL in the last 72 hours. CBC: Recent Labs 12/06/24 1157 12/07/24 0728 WBC 13.0* 12.0* HGB 9.0* 8.4* HCT 28.6* 26.4* PLT 681* 609* MCV 81.7 80.7 RDW 16.9* 16.6* ABGs: No results for input(s): PHART, XLR1ESS, PO2ART, OSB7QFT, SO2ART, Z0JKUGNS in the last 72 hours. Lactic Acid: No results for input(s): LACTATE in the last 72 hours. INR: No results for input(s): INR in the last 72 hours. Cardiac Injury Profile: No results for input(s): CKTOTAL, CKMB, TROPONINI, TROPHSBASE, TROPHS2, BNP in the last 72 hours. Labs in Last 3 months: Lab Results Component Value Date TSH 0.84 11/08/2024 Assessment and Plan: #Hidradenitis suppurativa w/ concern for cellulitis #Locally advanced Squamous cell carcinoma #Purulent draining abscess #Leukocytosis -Patient has documented squamous cell carcinoma from dermatology at [facility] -CT scan of abdomen and pelvis showing [...] monitoring serum creatinine 7AM-5PM: contact resident on Rupture (find by hovering over attending's name on left side of patient's chart) 5PM-7AM: contact [place] Phone: 12-07-2024 Note Attestation signed by Juvenal [...] monitoring serum creatinine 7AM-5PM: contact resident on [facility] Gato B (find by hovering over attending's name on left side of patient's chart) 5PM-7AM: contact AI2 res Internal Medicine: Med Team Initial History [...] carcinoma by the general surgery team at [facility]. He is scheduled to be transferred to [...] g) into a (more content not included)... [facility] 12-07-2024 History and physical note Internal [...] carcinoma by the general surgery team at [facility]. He is scheduled to be transferred to [...] 92 96 Procal: No results for input(s): PROCAL in the last 72 hours. CBC: Recent Labs 12/06/24 1157 12/07/24 0728 WBC 13.0* 12.0* HGB 9.0* 8.4* HCT 28.6* 26.4* PLT 681* 609* MCV 81.7 80.7 RDW 16.9* 16.6* ABGs: No results for input(s): PHART, NMY8IDS, PO2ART, GVA1TGF, SO2ART, Z1HZFWBM in the last 72 hours. Lactic Acid: No results for input(s): LACTATE in the last 72 hours. INR: No results for input(s): INR in the last 72 hours. Cardiac Injury Profile: No results for input(s): CKTOTAL, CKMB, TROPONINI, TROPHSBASE, TROPHS2, BNP in the last 72 hours. Labs in Last 3 months: Lab Results Component Value Date TSH 0.84 11/08/2024 Assessment and Plan: #Hidradenitis suppurativa w/ concern for cellulitis #Locally advanced Squamous cell carcinoma #Purulent draining abscess #Leukocytosis -Patient has documented squamous cell carcinoma from dermatology at [facility] -CT scan of abdomen and pelvis showing [...] Normal (BMI 18.5-24.9) - Disposition: Admit to [facility]. - Given the signs and symptoms [...] monitoring serum creatinine 7AM-5PM: contact resident on [facility] Med B (find by hovering over attending's name on left side of patient's chart) 5PM-7AM: contact AI2 res documented in this encounter [facility] 12-07-2024 Emergency department Note Patient actively vomiting - provider notified [facility] 12-07-2024 Emergency department Note Report given to AMAN Sutton T [facility] 12-06-2024 Emergency department Note Assume care of pt from AMAN Sutton for lunch coverage [facility] 12-06-2024 Emergency department Note Patient requested pillow to place under right hip/leg for comfort. States he got a text message from that he can early check in and questioned if transfer was arranged. This nurse advised patient unknown at this time. T [facility] 12-06-2024 Emergency department Note Pt to CT T [facility] 12-06-2024 Emergency department Note This RN attempted to obtain another IV access and blood cultures but was unsuccessful [facility] 12-06-2024 Emergency department Note Report to AMAN Pittman. [facility] 12-06-2024 Emergency department Note Pt presents to ED via EMS from an assisted living facility with c/o a seeping ulcer. EMS reports this has been an ongoing issue. Pt states he is only ambulatory for short distances. Pt is A&Ox4. [facility] 12-06-2024 Physician Emergency department Note Emergency [...] for clarification.) Fer Hollins MD Acute Care [facility] Fer Hollins MD 12/06/24 1120 [employer] Phone: 11-29-2024 History of Present illness Narrative [...] Attention on follow-up examinations is recommended. 5. Mhoz-fifxjic-hult-right skin thickening extending from the sacral region to the proximal thigh, in keeping with patient's background of hydradenitis suppurativa. 6. Jirp-bv-oroxkqyd upper lobe predominant centrilobular and paraseptal emphysema. [...] Sreedhar Jiang MD Attending Physician [facility] Floor Covering Contractorsenior lead software engineer [employer] documented in this encounter [facility] Work Phone: 11-27-2024 History of Present illness Narrative Auth approved. Per medical team, patient is medically ready to discharge. [facility] ready to accept today. Transport confirmed for 5pm today with [facility] ([phone]). Report: [phone]. Nurse, medical team, SNF, and patient aware [...] he tried eating he became nauseous and threw up. Lunch tray arrived during interview - chicken noodle soup, pudding, ice cream and Ensure. Patient states he only orders a light lunch because he typically doesn't eat lunch. Usually orders an entree at dinner. Overall, has suboptimal PO intake. He doesn't like the Magic Cup. It's the consistency. Patient has tried the [place] Custard, but states it melts before he gets to it. Agreeable to increasing Ensure to BID. Food Allergy: (Banana and avocado.) Anthropometrics: Height: 200.6 cm (6' 6.98) Weight: 104 kg (230 lb) BMI (Calculated): [...] Kevan La : 1975 Date: 11/26/24 Room: [address] [place] [address] Time Calculation Start Time: 1234 Stop Time: [...] of continued care Equipment Recommended upon Discharge: (senior design engineering specialist, sock aide, shower chair) OT Recommended [...] Strength Comments: WFL via ADLs Outcome Measures: [facility] Daily Activity Putting on and taking off [...] 12/02/24 11/26/24 at 2:05 PM DANY Cortés/Kamila [phone] Requested [facility] DSC team start precert for [facility]. Jami Erwin RN, TCC Occupational Therapy Therapy Communication Note Patient Name: Kevan La Department: [place] [id number] Room: [address] [place] [address] Today's Date: 11/26/2024 Discipline: Occupational Therapy OT Missed Visit: Yes Missed Visit Reason: Missed Visit Reason: Other (Comment) (Pt endorsing pain and stated I'm waiting for the nurse to give me pain meds and I can't even eat breakfast. Will reattempt as [...] carcinoma. COMPARISON: CT pelvis 11/08/2024. ACCESSION NUMBER(S): [id number] ORDERING CLINICIAN: CLAUDIO PLUNKETT TECHNIQUE: CT of the chest, abdomen, and pelvis was performed. Contiguous axial images were obtained at 3 mm slice thickness through the chest, abdomen and pelvis. Coronal and sagittal reconstructions at 3 mm slice thickness were performed. 90 ML of Omnipaque 350 was administered intravenously without immediate complication. FINDINGS: CHEST: LUNG/PLEURA/LARGE AIRWAYS: Uolr-re-ksmzizes upper lobe predominant centrilobular and paraseptal emphysema. [...] Attention on follow-up examinations is recommended. 5. Yjsc-msdkfdg-takt-right skin thickening extending from the sacral region to the proximal thigh, in keeping with patient's background of hydradenitis suppurativa. 6. Zljy-xf-aodtdajn upper lobe predominant centrilobular and paraseptal emphysema. I personally reviewed the images/study and I agree with the findings as stated by Elenita Munroe MD (PGY-2). This study was interpreted at [facility], [place], [place]. MACRO: None Signed by: Ravin Hyatt 11/19/2024 4:54 PM Dictation workstation: [id number] Physical Exam General: Resting in bed on [...] clindamycin, rifampin, augmentin and doxycycline, transferred from [facility] regarding 14cm gluteal fluid collection. He [...] tentatively arrange follow-up with Dr. Jiang at [facility], pending transport capabilities of eventual SNF - [...] outpt follow-up if he is establishing at [facility] for follow-up oncology care [ ] f/u [...] 11/21 New wound infection suspected Plan: - cont [...] ::A1c and UA normal on admission at [facility] ::FeUrea 48.2% (>35=> suggestive of intrinsic renal disease) Plan - Avoid nephrotoxic drug, hypotension, sepsis, dehydration - Continuing to encourage oral hydration and monitor serum calcium #Bladder Calculi ::Incidentally noted on CT Pelvis from OSH, asymptomatic, max diam is 1.5 cm #Normocytic Anemia #Folate Deficiency :: Hgb 10.4 at [facility], Hgb 8.8 on admission, Hgb 9.0 [...] Treatment Patient Name: Kevan La Department: [facility] 3 Room: 319/319-A Today's Date: 11/25/2024 Time Calculation Start Time: [...] of Assistance 2: Contact guard Outcome Measures: [facility] Basic Mobility Turning from your back to [...] recorded blue grass version of the song, [employer] jcarlos and expressed interest in covers of popular [...] oral prior to discharge. PAYOR: Veronica DISPO: [facility] is accepting FOC. ADOD 2-3 days. Will [...] carcinoma. COMPARISON: CT pelvis 11/08/2024. ACCESSION NUMBER(S): [id number] ORDERING CLINICIAN: CLAUDIO PLUNKETT TECHNIQUE: CT of the chest, abdomen, and pelvis was performed. Contiguous axial images were obtained at 3 mm slice thickness through the chest, abdomen and pelvis. Coronal and sagittal reconstructions at 3 mm slice thickness were performed. 90 ML of Omnipaque 350 was administered intravenously without immediate complication. FINDINGS: CHEST: LUNG/PLEURA/LARGE AIRWAYS: Zqdy-ng-fpyheykl upper lobe predominant centrilobular and paraseptal emphysema. [...] Attention on follow-up examinations is recommended. 5. Oxgn-grhtpzj-zybn-right skin thickening extending from the sacral region to the proximal thigh, in keeping with patient's background of hydradenitis suppurativa. 6. Vhlb-yo-tsymsqxj upper lobe predominant centrilobular and paraseptal emphysema. I personally reviewed the images/study and I agree with the findings as stated by Elenita Munroe MD (PGY-2). This study was interpreted at [facility], [place], [place]. MACRO: None Signed by: Ravin Hyatt 11/19/2024 4:54 PM Dictation workstation: [id number] Physical Exam General: Resting in bed on [...] clindamycin, rifampin, augmentin and doxycycline, transferred from [facility] regarding 14cm gluteal fluid collection. He [...] tentatively arrange follow-up with Dr. Jiang at [facility], pending transport capabilities of eventual SNF - [...] outpt follow-up if he is establishing at [facility] for follow-up oncology care [ ] f/u [...] ::A1c and UA normal on admission at [facility] ::FeUrea 48.2% (>35=> suggestive of intrinsic renal disease) Plan - Avoid nephrotoxic drug, hypotension, sepsis, dehydration - Continuing to encourage oral hydration and monitor serum calcium #Bladder Calculi ::Incidentally noted on CT Pelvis from OSH, asymptomatic, max diam is 1.5 cm #Normocytic Anemia #Folate Deficiency :: Hgb 10.4 at [facility], Hgb 8.8 on admission, Hgb 9.0 [...] carcinoma. COMPARISON: CT pelvis 11/08/2024. ACCESSION NUMBER(S): [id number] ORDERING CLINICIAN: CLAUDIO PLUNKETT TECHNIQUE: CT of the chest, abdomen, and pelvis was performed. Contiguous axial images were obtained at 3 mm slice thickness through the chest, abdomen and pelvis. Coronal and sagittal reconstructions at 3 mm slice thickness were performed. 90 ML of Omnipaque 350 was administered intravenously without immediate complication. FINDINGS: CHEST: LUNG/PLEURA/LARGE AIRWAYS: Qnld-jm-lrfaactb upper lobe predominant centrilobular and paraseptal emphysema. [...] Attention on follow-up examinations is recommended. 5. Lhfe-yjgfrnv-opjg-right skin thickening extending from the sacral region to the proximal thigh, in keeping with patient's background of hydradenitis suppurativa. 6. Hykq-tl-ajbqegye upper lobe predominant centrilobular and paraseptal emphysema. I personally reviewed the images/study and I agree with the findings as stated by Elenita Munroe MD (PGY-2). This study was interpreted at [facility], [place], [place]. MACRO: None Signed by: Ravin Hyatt 11/19/2024 4:54 PM Dictation workstation: [id number] Physical Exam General: Resting in bed on [...] clindamycin, rifampin, augmentin and doxycycline, transferred from [facility] regarding 14cm gluteal fluid collection. He [...] tentatively arrange follow-up with Dr. Jiang at [facility], pending transport capabilities of eventual SNF - [...] ::A1c and UA normal on admission at [facility] ::FeUrea 48.2% (>35=> suggestive of intrinsic renal disease) - Avoid nephrotoxic drug, hypotension, sepsis, dehydration - Continuing to encourage oral hydration and monitor serum calcium #Bladder Calculi ::Incidentally noted on CT Pelvis from OSH, asymptomatic, max diam is 1.5 cm #Normocytic Anemia #Folate Deficiency :: Hgb 10.4 at [facility], Hgb 8.8 on admission, Hgb 9.0 [...] carcinoma. COMPARISON: CT pelvis 11/08/2024. ACCESSION NUMBER(S): [id number] ORDERING CLINICIAN: CLAUDIO PLUNKETT TECHNIQUE: CT of the chest, abdomen, and pelvis was performed. Contiguous axial images were obtained at 3 mm slice thickness through the chest, abdomen and pelvis. Coronal and sagittal reconstructions at 3 mm slice thickness were performed. 90 ML of Omnipaque 350 was administered intravenously without immediate complication. FINDINGS: CHEST: LUNG/PLEURA/LARGE AIRWAYS: Liso-aa-fjmwbuoh upper lobe predominant centrilobular and paraseptal emphysema. [...] Attention on follow-up examinations is recommended. 5. Ussp-iqnwuuz-ijml-right skin thickening extending from the sacral region to the proximal thigh, in keeping with patient's background of hydradenitis suppurativa. 6. Ikzu-qi-emohsmqi upper lobe predominant centrilobular and paraseptal emphysema. I personally reviewed the images/study and I agree with the findings as stated by Elenita Munroe MD (PGY-2). This study was interpreted at [facility], [place], [place]. MACRO: None Signed by: Ravin Hyatt 11/19/2024 4:54 PM Dictation workstation: [id number] Physical Exam General: Resting in bed on [...] clindamycin, rifampin, augmentin and doxycycline, transferred from [facility] regarding 14cm gluteal fluid collection. He [...] tentatively arrange follow-up with Dr. Jiang at [facility], pending transport capabilities of eventual SNF - [...] ::A1c and UA normal on admission at [facility] ::FeUrea 48.2% (>35=> suggestive of intrinsic renal disease) - Avoid nephrotoxic drug, hypotension, sepsis, dehydration - Continuing to encourage oral hydration and monitor serum calcium #Bladder Calculi ::Incidentally noted on CT Pelvis from OSH, asymptomatic, max diam is 1.5 cm #Normocytic Anemia #Folate Deficiency :: Hgb 10.4 at [facility], Hgb 8.8 on admission, Hgb 9.0 [...] molecule JAK1 inhibitor), who was transferred from [facility] for a worsening of L gluteal [...] the context of long-standing hidradenitis suppurativa, PMID: [id number] 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 PMID: [id number] Update 11/22: Increased purulence and odor noted [...] Therapy Treatment Patient Name: Kevan La Department: [place] [address] Room: [facility]/319-A Today's Date: 11/22/2024 Time Calculation Start Time: [...] ther ex. Decreased ability to continue to telecommunications field engineer order to work on standing ther ex [...] avoid weight thru left side.) Outcome Measures: [facility] Basic Mobility Turning from your back to [...] q8h Continue scheduled fentanyl 50mcg/h TD patch [id number] 11/20/24 Continue gabapentin 300mg PO once daily [...] One time PRN dose of bisacodyl 10mg NH ordered per primary Goal to have BM without straining q48-72h, adjust regimen as needed Encourage mobility as tolerated, PT/OT following Disposition: Please start the process of having prior authorization with meds to beds deliver medications to patient prior to discharge via [facility] pharmacy. Prescriptions will need to be sent 48-72 hours prior to discharge so that a prior authorization can be completed. Discharge date pending resolution of acute hospital issues. Patient does not currently qualify for an appointment with outpatient Supportive Oncology--He first needs to establish with outpatient [facility]. SIGNATURE: Jami Lance APRN-NEHAL PAGER/CONTACT: Contact information: Supportive and Palliative Oncology Monday-Monday 8 AM-5 PM [employer] chat or pager [phone]. After hours and weekends: pager [phone] == SUBJECTIVE: Pain Assessment: I have no pain right now. Opioid Requirements Past 24h opioid requirements: (11/21-11/22, 7520-3114) fentanyl 50mcg/h TD patch x 1 = [...] of Care/Advance Care Planning: (Per Emile Segovia, PAYROLL SPECIALIST's, note on 11/16/24) Patient's current clinical condition, including diagnosis, prognosis, and management plan, and goals of care were discussed. 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 We will continue to follow. Please contact us for additional questions or concerns. SIGNATURE: TRAVIS Huizar PAGER/CONTACT: Contact information: [facility] Palliative Oncology Monday-Monday 8 AM-5 PM, [employer] chat or pager [phone]. After hours and weekends: pager [phone] Kevan La is a 49 y.o. male [...] clindamycin, rifampin, augmentin and doxycycline, transferred from [facility] regarding 14cm gluteal fluid collection. He [...] tentatively arrange follow-up with Dr. Jiang at [facility], pending transport capabilities of eventual SNF - [...] ::A1c and UA normal on admission at [facility] ::FeUrea 48.2% (>35=> suggestive of intrinsic renal disease) - Avoid nephrotoxic drug, hypotension, sepsis, dehydration - Continuing to encourage oral hydration and monitor serum calcium #Bladder Calculi ::Incidentally noted on CT Pelvis from OSH, asymptomatic, max diam is 1.5 cm #Normocytic Anemia #Folate Deficiency :: [facility], Hgb 8.8 on admission, Hgb 9.0 [...] clindamycin, rifampin, augmentin and doxycycline, transferred from [facility] regarding 14cm gluteal fluid collection. He [...] 11/21 Updates: - LC staining negative - Gahanna 61.2 (H), Lambda 44.2 (H), ratio 1.38 [...] tentatively arrange follow-up with Dr. Jiang at [facility], pending transport capabilities of eventual SNF - [...] ::A1c and UA normal on admission at [facility] ::FeUrea 48.2% (>35=> suggestive of intrinsic renal disease) - Avoid nephrotoxic drug, hypotension, sepsis, dehydration - Continuing to encourage oral hydration and monitor serum calcium #Bladder Calculi ::Incidentally noted on CT Pelvis from OSH, asymptomatic, max diam is 1.5 cm #Normocytic Anemia #Folate Deficiency :: Hgb 10.4 at [facility], Hgb 8.8 on admission, Hgb 9.0 [...] q8h Continue scheduled fentanyl 50mcg/h TD patch [id number] 11/20/24 Start gabapentin 300mg PO once daily [...] One time PRN dose of bisacodyl 10mg NH ordered per primary Goal to have BM without straining q48-72h, adjust regimen as needed Encourage mobility as tolerated, PT/OT following Disposition: Please start the process of having prior authorization with meds to beds deliver medications to patient prior to discharge via [facility] pharmacy. Prescriptions will need to be sent 48-72 hours prior to discharge so that a prior authorization can be completed. Discharge date: unknown pending acute issues Patient does not qualify for an appointment with Outpatient Supportive Oncology- needs to establish with Oncology outpatient SIGNATURE: TRAVIS Huizar PAGER/CONTACT: Contact information: [facility]ive [facility] Palliative Oncology Monday-Monday 8 AM-5 PM [employer] chat or pager [phone]. After hours and weekends: pager [phone] == SUBJECTIVE: Interval Events: Pt's pain sub-optimally controlled on current regimen. Discussed with pt and he is agreeable to above recommendations. Plans to re-evaluate pt tomorrow for possible eligibility for fentanyl patch increase. Dropped off Supportive Oncology information packet, [facility] packet, and packet regarding assistance with disability/financial resources per oxidation operator. Pain Assessment: Location: Left gluteal abscess Duration: Constant Characteristics: Ratin/10 Descriptors: Throbbing, sharp, and burning Aggravating: Movement, worse at night Relieving: Analgesics, positioning, and modifying activity Interference with Function: Somewhat Opioid Requirements Past 24h opioid requirements: (11/20-11/21, 6518-4387) fentanyl 50mcg/h TD patch x 1 = [...] Making/Goals of Care/Advance Care Planning: (Per Emile Segovia CNP's, note on 11/16/24) Patient's current clinical condition, including diagnosis, prognosis, and management plan, and goals of care were discussed. 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 We will continue to follow. Please contact us for additional questions or concerns. SIGNATURE: TRAVIS Huizar PAGER/CONTACT: Contact information: [facility] Palliative Oncology Monday-Monday 8 AM-5 PM, [employer] chat or pager [phone]. After hours and weekends: pager [phone] Transitional Care Coordination Progress Note: Patient discussed during interdisciplinary rounds. Team members present: MIGUEL NIELSEN Plan per Medical/Surgical team: Gluteal Abscess Payor: [facility] Discharge disposition: [facility] Potential Barriers: medical ADOD: 3-4 days Per MD, continuing to manage pain. Pending plans from oncology. Updated notes sent to facility. Will continue to follow for discharge planning needs. Julisa GARZA, scientific affairs manager Coordinator (TCC) [phone] Occupational Therapy OT Treatment Patient Name: Kevan La Department: [place] [address] Room: [address] [place] [address] Today's Date: 11/21/2024 Time Calculation Start Time: [...] and pt reports not feeling well l in the head either. Pt politely declines to expand upon [...] health - pt highly appreciative. Outcome Measures: [facility] Daily Activity Putting on and taking off [...] (OTR/L, OTD) Inpatient Occupational Therapist Rehab Office: [phone] Spiritual Care Visit Spiritual Care Request Spiritual Care Annotation Annotation: Supply Chain Generalist had a follow-up visit with the patient. Supply Chain Generalist delivered prayer book resources as promised and shared with the patient what was brought. 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 His family lives in [place]. Patient does not have much support around him in [place]. Supply Chain Generalist placed a [facility] cancer support referral for the patient upon his request. Supply Chain Generalist will continue to follow and provide support. Please reach out with any needs/concerns. Rev. Mack Schmitz, Supportive Oncology Supply Chain Generalist Physical Therapy Therapy Communication Note Patient Name: Kevan La Department: [facility] 3 Room: [address] [place] [address] Today's Date: 11/20/2024 Discipline: Physical Therapy PT Missed Visit: Yes Missed Visit Reason: Missed Visit Reason: Patient refused (Pt stated he has been nauseaus today and not willing to get up.) Missed Time: Attempt Comment: Cosigned by Doris Guzman, PT at 11/20/2024 9:44 PM EST Occupational Therapy Therapy Communication Note Patient Name: Kevan La Department: [facility] 3 Room: [facility]319-A Today's Date: 11/20/2024 Discipline: Occupational Therapy OT Missed Visit: Yes Missed Visit Reason: Patient refused (Pt reports not feeling well/up for therapy. OT offers psychosocial options and pt reports not feeling well l in the head either. Pt politely declines to expand upon this -- OT expresses support if pt ever wants to discuss. Pt pleasant and aprpeciative.) Missed Time: Attempt Janny Andres (OTR/Kamila, OTD) Inpatient Occupational Therapist Rehab Office: [phone] Kevan La is a 49 y.o. male [...] medications to patient prior to discharge via [facility] pharmacy. Prescriptions will need to be sent 48-72 hours prior to discharge so that a prior authorization can be completed. Discharge date: unknown pending acute issues Patient does not qualify for an appointment with Outpatient Supportive Oncology- needs to establish with Oncology outpatient SIGNATURE: TRAVIS Rodas PAGER/CONTACT: Contact information: [facility] Palliative Oncology Monday-Monday 8 AM-5 PM [employer] chat or pager [phone]. After hours and weekends: pager [phone] SUBJECTIVE: Interval Events: Pt continues to have high levels of pain- very hesitant to increase regimen stating I don't want to get addicted. Denies history of addiction. States pain is [...] UNK primary Family: Supportive though live in [place] Performance status: Moderate limitations due to pain Joys/meaning/strength: Family and [place] Understanding of health: 11/16: Demonstrates good prognostic [...] of shared electronic medical record/secure chat/email or [id number]. We will continue to follow Please contact us for additional questions or concerns. SIGNATURE: TRAVIS Rodas PAGER/CONTACT: Contact information: [facility] Palliative Oncology Monday-Monday 8 AM-5 PM [employer] Secure chat or pager [phone]. After hours and weekends: pager [phone] Kevan La is a 49 y.o. male [...] clindamycin, rifampin, augmentin and doxycycline, transferred from [facility] regarding 14cm gluteal fluid collection. He [...] tentatively arrange follow-up with Dr. Jiang at [facility], pending transport capabilities of eventual SNF - [...] ::A1c and UA normal on admission at [facility] ::FeUrea 48.2% (>35=> suggestive of intrinsic renal disease) - Avoid nephrotoxic drug, hypotension, sepsis, dehydration - Continuing to encourage oral hydration and monitor serum calcium #Bladder Calculi ::Incidentally noted on CT Pelvis from OSH, asymptomatic, max diam is 1.5 cm #Normocytic Anemia #Folate Deficiency :: Hgb 10.4 at [facility], Hgb 8.8 on admission, Hgb 9.0 [...] molecule JAK1 inhibitor), who was transferred from [facility] for a worsening of L gluteal [...] the context of long-standing hidradenitis suppurativa, PMID: [id number] 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 PMID: [id number] Recommendations: - Informed patient of biopsy results, [...] of Care: Visited With: Patient Refer to Supply Chain Generalist: Spiritual Care Assessment Spiritual Assessment: Care Provided: Intended Effects: Build relationship of care and support, Establish rapport and connectedness, Aligning care plan with patient's values, Convey a calming presence, Promote sense of peace Interventions: Ask guided questions, Active listening, Discuss concerns Sense of Community and or Congregation Affiliation: No sabianism on file Supply Chain Generalist Addressed Needs/Concerns and/or Mike Through: Outcome: Advance Directives: Spiritual Care Annotation Annotation: Supply Chain Generalist introduced self and spiritual care services to [...] to focus on in his own life. Supply Chain Generalist made a plan to follow-up tomorrow. Please reach out with any needs/concerns. Rev. 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 Patient [...] Lab Units 11/19/24 0608 11/18/24 0611/17/24 0515 SODIUM mmol/L 134* 135* 134* POTASSIUM [...] clindamycin, rifampin, augmentin and doxycycline, transferred from [facility] regarding 14cm gluteal fluid collection. He [...] ::A1c and UA normal on admission at [facility] ::FeUrea 48.2% (>35=> suggestive of intrinsic renal disease) - Avoid nephrotoxic drug, hypotension, sepsis, dehydration - Continuing to encourage oral hydration and monitor serum calcium #Bladder Calculi ::Incidentally noted on CT Pelvis from OSH, asymptomatic, max diam is 1.5 cm #Normocytic Anemia #Folate Deficiency :: Hgb 10.4 at [facility], Hgb 8.8 on admission, Hgb 9.0 [...] yesterday. Did not order breakfast this morning. I didn't feel right. Lunch tray (chicken noodle soup, gingerale, O.J. and coffee) arrived while talking with patient. Per review of [employer] Menu selections, patient has been consuming 2-3 bowls of chicken noodle soup daily. Only chooses entrees intermittently. Patient reports drinking a daily serving of Ensure. When I get it. Declines increasing ONS to BID, but agrees to trying chocolate Magic Cup. Food Allergy: (Banana and avocado.) Anthropometrics: Height: 200.6 cm (6' 6.98) Weight: 104 kg (230 lb) BMI (Calculated): 25.93 IBW/kg (Dietitian Calculated): 100 kg Percent of IBW: 104.3 % Weight History: No new weights this admission. Nutrition Focused Physical Exam Findings: Edema: R UE nonpitting. Physical Findings: Skin: Positive (Chronic left thigh/hip hidradenitis with deep abscess/myositis.) Digestive System Findings: (Reports constipation. They're still working on it.) Nutrition Significant Labs: Vitamin D, 25 Hydroxy, [...] Select supplement: Ensure Plus 11/11/24 1047 11/10/24 042 May Participate in Room Service ( ROOM [...] team: Gluteal abscess Payor: Veronica Discharge disposition: [facility] Potential Barriers: medical ADOD: 2-3 days Updated notes sent to [facility]. Will continue to monitor for discharge planning needs. Julisa GARZA, scientific affairs manager Coordinator (TCC) [phone] Physical Therapy Physical Therapy Treatment Patient Name: Kevan La Department: [facility] 3 Room: [address] [place] [address] Today's Date: 11/18/2024 Time Calculation Start Time: [...] of Assistance 1: Close supervision Outcome Measures: [facility] Basic Mobility Turning from your back to [...] Adult Cosigned by Doris Guzman, PT at 11/18/2024 2:47 PM EST Kevan [...] clindamycin, rifampin, augmentin and doxycycline, transferred from [facility] regarding 14cm gluteal fluid collection. He [...] ::A1c and UA normal on admission at [facility] ::FeUrea 48.2% (>35=> suggestive of intrinsic renal disease) - Avoid nephrotoxic drug, hypotension, sepsis, dehydration - Continuing to encourage oral hydration and treat hypercalcemia #Bladder Calculi ::Incidentally noted on CT Pelvis from OSH, asymptomatic, max diam is 1.5 cm #Anemia :: Hgb 10.4 at [facility], Hgb 8.8 [...] hours Lab Units 11/17/24 0515 11/16/24 0611/15/24 1256 WBC AUTO x10*3/uL 11.0 [...] clindamycin, rifampin, augmentin and doxycycline, transferred from [facility] regarding 14cm gluteal fluid collection. He [...] ::A1c and UA normal on admission at [facility] ::FeUrea 48.2% (>35=> suggestive of intrinsic renal disease) - Avoid nephrotoxic drug, hypotension, sepsis, dehydration - Continuing to encourage oral hydration and treat hypercalcemia #Bladder Calculi ::Incidentally noted on CT Pelvis from OSH, asymptomatic, max diam is 1.5 cm #Anemia :: Hgb 10.4 at [facility], Hgb 8.8 on admission, Hgb 7.7 [...] resp. rate 16, height 2.006 m (6' 6.98), weight 104 kg (230 lb), SpO2 95%. [...] Ashly Patterson MD Endocrinology, PGY 5 Pager [phone] or secure chat Case discussed with Dr. [...] clindamycin, rifampin, augmentin and doxycycline, transferred from [facility] regarding 14cm gluteal fluid collection. He [...] weeks ago s/p I&D, BCx with marta oliveiramohindera s/p Unasyn complete 10/28/2024 presenting to OSH [...] ::A1c and UA normal on admission at [facility] ::FeUrea 48.2% (>35=> suggestive of intrinsic renal disease) - Avoid nephrotoxic drug, hypotension, sepsis, dehydration - Continuing to encourage oral hydration and treat hypercalcemia #Bladder Calculi ::Incidentally noted on CT Pelvis from OSH, asymptomatic, max diam is 1.5 cm #Anemia :: Hgb 10.4 at [facility], Hgb 8.8 on admission, Hgb 7.7 [...] Kevan La : 1975 Date: 11/15/24 Room: [address] [place] [address] Time Calculation Start Time: 1530 Stop Time: [...] Dressing Where Assessed: Bed level Outcome Measures: [facility] Daily Activity Putting on and taking off [...] 11/15/24 at 4:17 PM Shereen Santoyo OT [phone] Kevan La is a 49 y.o. male [...] resp. rate 16, height 2.006 m (6' 6.98), weight 104 kg (230 lb), SpO2 96%. [...] Communication Note Patient Name: Kevan La Department: [place] [address] Room: [address] [place] [address] Today's Date: 11/15/2024 Discipline: Physical Therapy PT [...] clindamycin, rifampin, augmentin and doxycycline, transferred from [facility] regarding 14cm gluteal fluid collection. He [...] ::A1c and UA normal on admission at [facility] ::FeUrea 48.2% (>35=> suggestive of intrinsic renal disease) - Avoid nephrotoxic drug, hypotension, sepsis, dehydration - Continuing to encourage oral hydration and treat hypercalcemia #Bladder Calculi ::Incidentally noted on CT Pelvis from OSH, asymptomatic, max diam is 1.5 cm #Anemia :: Hgb 10.4 at [facility], Hgb 8.8 on admission, Hgb 7.7 [...] - continue folate supplementation Isa Turner MD supervisor residential, PGY-1 Cosigned by Claudio Plunkett MD at [...] resp. rate 16, height 2.006 m (6' 6.98), weight 104 kg (230 lb), SpO2 96%. 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 He [...] ::Lactate 11/08: 1.2; 1.3 [facility] 11[facility]; Wound Cx were ordered, but not collected :: Last dose of Povorcitanib 10/10 :: Blood Cx from 11/10 NGTD :: Tissue Cx from 11/12 growing rare proteus mirabilis :: s/p tissue bx 11/12 with Dermatology Plan: - continue to follow BCx from [facility] -> micro lab -> blood Cx - [...] of low BPs :: normal TSH @ [facility] #Hypercalcemia, mild ::presented with CoCa 12.5; [...] ::A1c and UA normal on admission at [facility] ::FeUrea 48.2% (>35=> suggestive of intrinsic renal disease) - Avoid nephrotoxic drug, hypotension, sepsis, dehydration - Continuing to encourage oral hydration and treat hypercalcemia #Bladder Calculi ::Incidentally noted on CT Pelvis from OSH, asymptomatic, max diam is 1.5 cm #Anemia :: Hgb 10.4 at [facility], Hgb 8.8 on admission, Hgb 7.7 [...] and B12 levels ordered Isa Turner MD supervisor residential, PGY-1 Cosigned by Claudio Plunkett MD at [...] Plan per Medical/Surgical team: Gluteal abscess Payor: [facility] Discharge disposition: [facility] Potential Barriers: medical ADOD: 2-3 days Per MD, pending final culture results. Will continue to monitor for discharge planning needs. Updated notes sent to facility. Will continue to monitor for discharge planning needs. Julisa GARZA, scientific affairs manager Coordinator (TCC) [phone] Kevan La is a 49 y.o. male [...] resp. rate 16, height 2.006 m (6' 6.98), weight 104 kg (230 lb), SpO2 95%. [...] patient please haiku or call id pager [phone] Sarah Caldwell, MS4 [employer] Infectious [...] resp. rate 16, height 2.006 m (6' 6.98), weight 104 kg (230 lb), SpO2 96%. [...] on 11/14/2024 Exposure target: AUC24 (range)400-600 mg/L.hr VHG25-79: 477 mg/L.hr AUC24,ss: 476 mg/L.hr Probability of [...] and signs/symptoms of toxicity. Alee Rios, PharmD [place] [address] Pharmacist Kevan La is a 49 y.o. [...] Intake/Output Summary (Last 24 hours) at 11/13/2024 0725 Last data filed at 11/13/2024 0357 Gross [...] clindamycin, rifampin, augmentin and doxycycline, transferred from [facility] regarding 14cm gluteal fluid collection. He [...] ::Lactate 11/08: 1.2; 1.3 on 11/10 :: [facility] Blood Cx 11/08 NGTD; Wound Cx were ordered, but not collected :: Last dose of Povorcitanib 10/10 :: WBC 11.1 :: Blood Cx from 11/10 NGTD :: Tissue Cx from 11/12 in progress, no organism seen on Gram stain :: s/p tissue bx 11/12 with Dermatology Plan: - continue to follow BCx from [facility] -> micro lab -> blood Cx - [...] of low BPs :: normal TSH @ [facility] #Hypercalcemia, mild ::presented with CoCa 12.5; iCa 1.69; PTH <6.3 ::25-OH vit D 79; 1.25-OH vit D 35.9 ::PTHrP, SPEP, urine Ca pending :: UPEP wnl ::TSH wnl at [facility] :: Endo following :: s/p pamidronate 90 mg IV 11/12/24 - follow SPEP, urine 24 hr Ca, PTHrP, 1.25-OH vit D levels - continue 200 ml/hr NS #Nicotine Use - Continue home Chantix #Subacute PARUL ::Cr ~1.6 on last admission, 1.48 on admission to [facility] 11/08 > 1.42, prior Cr in 03/2023 was 1.2; Cr 1.44 on presentation to ::On prior admission was evaluated for this with normal UA, CT with no hydronephrosis, felt to be 2/2 NSAID use for HS ::A1c and UA normal on admission at [facility] ::FeUrea 48.2% (>35=> suggestive of intrinsic renal disease) - Avoid nephrotoxic drug, hypotension, sepsis, dehydration - Continuing to encourage oral hydration and treat hypercalcemia #Bladder Calculi ::Incidentally noted on CT Pelvis from OSH, asymptomatic, max diam is 1.5 cm #Anemia :: Hgb 10.4 at [facility], Hgb 8.8 on admission, 8.3 today, stable :: 10/10/24: decr TIBC 218 and Fe 24; normal ferritin 259 :: Holding home PO iron iso possible infection - no evidence of bleeding, pt is HD stable (BPs are soft at baseline per pt), no tachycardia, no neurological changes - will maintain active type and screen Isa Turner MD supervisor residential, PGY-1 Cosigned by Claudio Plunkett MD at [...] & Treatment Patient Name: Kevan La Department: [place] [address] Room: [address] [place] [address] Today's Date: 11/12/2024 Time Calculation Start Time: [...] 1: Walker (bed height elevated (pt is 6'7)) Transfer Level of Assistance 1: Moderate assistance, [...] to (R) lean/propped on elbow. Outcome Measures: [facility] Basic Mobility Turning from your back to [...] resp. rate 16, height 2.006 m (6' 6.98), weight 104 kg (230 lb), SpO2 96%. [...] 200 mL/hr, Last Rate: 200 mL/hr (11/11/24 9269) PRN Medications PRN medications: naloxone, ondansetron, oxyCODONE, oxyCODONE, vancomycin Assessment/Plan Kevan La is a 49 y.o. male with refractory hidradenitis supprativa (HS) not responding to povorcitinib (RCT candidate), apremilast, isotretinoin, adalimumab, infliximab, moxifloxacin/metronidazole, minocyclin, clindamycin, rifampin, augmentin and doxycycline, transferred from [facility] regarding 14cm gluteal fluid collection. He [...] ::Lactate 11/08: 1.2; 1.3 on 11/10 :: [facility] Blood Cx 11/08 NGTD; Wound Cx were ordered, but not collected :: Blood Cx from 11/10 NGTD :: -Last dose of Povorcitanib 10/10 :: WBC 11-> 11.5 Plan: - continue to follow BCx from [facility] -> micro lab -> blood Cx - [...] of low BPs :: normal TSH @ [facility] #Hypercalcemia, mild ::presented with CoCa 12.5; iCa 1.69; PTH <6.3 ::25-OH vit D 79 ::1.25-OH vit D, PTHrP, SPEP, urine Ca pending :: UPEP wnl ::TSH wnl at [facility] :: Endo following - follow SPEP, urine 24 hr Ca, PTHrP, 1.25-OH vit D levels - continue 200 ml/hr NS #Nicotine Use - Continue home Chantix #Subacute PARUL ::Cr ~1.6 on last admission, 1.48 on admission to [facility] 11/08 > 1.42, prior Cr in 03/2023 was 1.2; Cr 1.44 on presentation to ::On prior admission was evaluated for this with normal UA, CT with no hydronephrosis, felt to be 2/2 NSAID use for HS ::A1c and UA normal on admission at [facility] :: FeUrea 48.2% (>35=> suggestive of intrinsic renal disease) - Avoid nephrotoxic drug, hypotension, sepsis, dehydration - Continuing to encourage oral hydration and treat hypercalcemia #Bladder Calculi ::Incidentally noted on CT Pelvis from OSH, asymptomatic, max diam is 1.5 cm #Anemia :: Hgb 10.4 at [facility], Hgb 8.8 on admission, 8.3 today - no evidence of bleeding, pt is HD stable (Bps are soft at baseline per pt), no tachycardia, no neurological changes - will maintain active type and screen Isa Turner MD supervisor residential, PGY-1 Cosigned by Claudio Plunkett MD at [...] Name: Kevan La Today's Date: 11/11/2024 Room: [address] [place] [address] Time Calculation Start Time: 1234 Stop Time: [...] abscess General: Reason for Referral: returning to [facility] 11/10/2024 as a transfer from [facility] regarding 14cm gluteal fluid collection, concern of sepsis. 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 Pt reports furniture walking at [facility]. 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 male [...] resp. rate 16, height 2.006 m (6' 6.98), weight 104 kg (230 lb), SpO2 95%. [...] clindamycin, rifampin, augmentin and doxycycline, transferred from [facility] regarding 14cm gluteal fluid collection. He [...] improving. 11/11 Updates: - Blood Cx from [facility] neg x 2 days; tissue Cx was never collected @ [facility] - ACS recommends no surgical intervention [...] ::Lactate 11/08: 1.2; 1.3 on 11/10 :: [facility] Blood Cx 11/08 NGTD; Wound Cx were ordered, but not collected :: Blood Cx 11/10 NGTD Plan: - continue to follow BCx from [facility] -> micro lab -> blood Cx [...] of low BPs :: normal TSH @ [facility] #Hypercalcemia, mild ::presented with CoCa 12.5; iCa 1.69; PTH <6.3 ::25-OH vit D 79 ::1.25-OH vit D, PTHrP, UPEP, SPEP, urine Ca pending ::TSH wnl at [facility] :: Endo following - follow UPEP, SPEP, urine 24 hr Ca, PTHrP, 1.25-OH vit D levels - continue 200 ml/hr NS #Nicotine Use - Continue home Chantix #Subacute PARUL ::Cr ~1.6 on last admission, 1.48 on admission to [facility] 11/08 > 1.42, prior Cr in 03/2023 was 1.2; Cr 1.44 on presentation to ::On prior admission was evaluated for this with normal UA, CT with no hydronephrosis, felt to be 2/2 NSAID use for HS ::A1c and UA normal on admission at [facility] :: FeUrea 48.2% (>35=> suggestive of intrinsic renal disease) - Avoid nephrotoxic drug, hypotension, sepsis, dehydration - Continuing to encourage oral hydration and treat hypercalcemia #Bladder Calculi ::Incidentally noted on CT Pelvis from OSH, asymptomatic, max diam is 1.5 cm #Anemia :: Hgb 10.4 at [facility], Hgb 8.8 on admission, 8.3 today - no evidence of bleeding, pt is HD stable (Bps are soft at baseline per pt), no tachycardia, no neurological changes - will maintain active type and screen Isa Turner MD supervisor residential, PGY-1 Cosigned by Claudio Plunkett MD at [...] team: Gluteal abscess Payor: [facility] Discharge disposition: [facility] Potential Barriers: none ADOD: 3-4 days Per MD, pending plans from [facility]. Updated notes sent to facility and requested update if patient will need precert to return. Will continue to monitor for discharge planning needs. Julisa GARZA, scientific affairs manager Coordinator (TCC) [phone] Pharmacy Admission Order Reconciliation Review Kevan La [...] team at any time. Ti Mays PharmD [address] [facility], Room# [address] [place] [address] Please reach out via Secure Chat for questions, or if no response call [facility] or Home Inventory S[pecialists Pharmacy Medication History Review Kevan La is a 49 y.o. male admitted for No Principal Problem: There is no principal problem currently on the Problem List. Please update the Problem List and refresh.. Pharmacy reviewed the patient's ovrfx-nv-lqpcnvlyg medications and allergies for accuracy. Medications ADDED Multivitamin Ibuprofen OTC 200 mg Ensure plus Medications CHANGED Miralax Medications REMOVED/NOT TAKING Alteplase 2 mg Leda-colace The list below reflects the updated ASSET SPECIALIST list. Prior to Admission Medications Prescriptions Last [...] at discharge. Pharmacy has been updated to [facility]. Sources [facility] Pharmacy dispense history Patient interview Good historian Chart Review Discharge summary 10/23/24 Additional Comments N/A Ti Mays PharmD [address] [place]. [facility], Room# [address] [place] [address] Please reach out via Secure Chat for questions, or if no response call [facility] or Home Inventory S[pecialists Vancomycin Dosing by Pharmacy- FOLLOW UP Kevan [...] on 11/12/2024 Exposure target: AUC24 (range)400-600 mg/L.hr KTH11-49: 500 mg/L.hr AUC24,ss: 488 mg/L.hr Probability of [...] clindamycin, rifampin, augmentin and doxycycline, transferred from [facility] regarding 14cm gluteal fluid collection. He [...] - Follow BCx and Wound Cx from [facility] [phone] micro lab - ACS Surgery consulted - Wound care consulted - ID consult pending speciation - Holding home PO iron iso likely active infection - Continue Topical Clindamycin BID - Continue V/Z (11/08 - ) - Pain: Tylenol TID, Oxy 5 Q6H prn - Last dose of Povorcitanib 10/10, will need Derm follow-up nonurgently #Hypotension :: appears long standing on chart review, pt confirmed hx of low BPs :: normal TSH @ [facility] #Hypercalcemia, mild ::CoCa 12.5; iCa 1.69; PTH <6.3 ::25-OH vit D 79 ::1.25-OH vit D, PTHrP, UPEP, SPEP, urine Ca pending ::TSH wnl at [facility] - 1 L NS bolus given this AM, 200 ml/hr NS - PM RFP - Endo consulted, appreciate recommendations #Nicotine Use - Continue home Chantix #Subacute PARUL ::Cr ~1.6 on last admission, 1.48 on admission to [facility] 11/08 > 1.42, prior Cr in 03/2023 was 1.2; Cr 1.44 on presentation to ::On prior admission was evaluated for this with normal UA, CT with no hydronephrosis, felt to be 2/2 NSAID use for HS ::A1c and UA normal on admission at [facility] - Avoid nephrotoxic drug, hypotension, sepsis, dehydration - Continuing to encourage oral hydration #Bladder Calculi ::Incidentally noted on CT Pelvis from OSH, asymptomatic, max diam is 1.5 cm #Anemia :: Hgb 10.4 at [facility], Hgb 8.8 on admission - no evidence of bleeding, pt is HD stable (Bps are soft at baseline per pt), no tachycardia - will maintain active type and screen Evghenia Rine, MD supervisor residential, PGY-1 Cosigned by Claudio Plunkett MD at [...] ask Dermatology to see on Monday . 11/10/24 09 Discharge Planning Living Arrangements Other (Comment) (Pt is from [facility]. Prior to his SNF stay, pt lived at home with his dog.) Support Systems Family members Assistance Needed Await PT/OT recommendations. Pt was at SNF for IV atbs and wound care. Type of Residence care home facility Do you have animals or pets at home? No (Pt sent his dog to stay with his brother in [place].) Home or Post Acute Services Post acute facilities (Rehab/SNF/etc) Type of Post Acute Facility Services care home Expected Discharge Disposition SNF Does the [...] were you homeless or living in a correction (including now)? N Transportation Needs In the [...] Met with pt and introduced myself as career transition specialist and member of the Care Transitions team for discharge planning. Pt was recently admitted from 10/10-10/23 for a gluteal abscess. Pt was discharged to [facility] [place] (with pending Medicaid #[id number]) for IV atbs and wound care. Pt would like to return to [facility], if SNF is needed at discharge. Pt is currently receiving IV atbs, await PT/OT evaluations. Referral was sent to [facility] for return via [facility]. Prior to his SNF stay, pt was living at home alone. 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 Pt's address, phone number and contact information was verified, pt's brother Omkar was added. Email sent to the insurance DL to verify if pt's Medicaid is active. Pt does not have any other questions/concerns at this time. Aida VELASQUEZ, RN- Transitional Jacquard Fixer (TCC) [phone] documented in this encounter [facility] Work Phone: 11-27-2024 Hospital Discharge instructions Danna Soares MD - 11/27/2024 12:16 PM EDT Discharge Instructions Dear Kevan La, You were admitted to [facility] for your worsening gluteal wound and concern [...] at this dosing while you are at [facility]. The supportive oncology doctors will see you once you leave [facility] and will continue prescribing these medicines at that time. If you would like to pickle processor your medications from another pharmacy, ask your pharmacy to contact [facility] pharmacy to transfer over the prescriptions Appointments/Follow-Up: We have requested an automated system to call you to schedule; however if you do not hear from them in 3 days, please call [facility] appointment line: [phone] or to make the appointment yourself Dr. Jiang (oncology at [facility]) 11/29, 2:20pm Supportive oncology follow-up with Astrid Hawley on 12/17 at 1pm Please call and schedule appointment with your primary care doctor within 2 week, tell them that patient was recently admitted to the hospital. If you need to establish with new primary care doctor, please call and schedule an appointment with [facility]: phone: [phone] Lab work needed: No need to make appointment or have prescription. Please go to any labs to complete below None It was a pleasure taking care of you, Your Care Team documented in this encounter [facility] Work Phone: 11-26-2024 Miscellaneous Notes The patient's goals for the shift include The clinical goals for the shift include Pt. pain will be controlled this shift 4046-3003 Over the shift, the patient's pain has [...] and discussed patient case with supportive oncology FOUNDATION RELATIONS MANAGER, Omaira Clayton APRN and primary team. Patient with ongoing frequent PRN opioid requirements and suboptimally controlled pain. Plans for upcoming discharge. 24H Opioid Requirements Past 24h opioid requirements (11/24-11/25, 5200-4182): Fentanyl 50 mcg/h TD patch x 1 [...] medications to patient prior to discharge via [facility] pharmacy. Prescriptions will need to be sent [...] SIGNATURE: Nellie Douglass PharmD Palliative Medicine Clinical Wet Crown Blocking Operator Supportive Oncology Services PAGER/CONTACT: Contact information: Supportive and Palliative Oncology Monday-Monday 8 AM-5 PM Behind the Burner or pager [phone]. After hours and weekends: pager [phone] Cosigned by TRAVIS Pinzon at 11/25/2024 1:08 [...] way of shared electronic medical record or cwns-ie-osps. Medical complexity was high level due to due to complexity of problems, extensive data review, and high risk of management/treatment. I spent 15 minutes in the care of this patient which included chart review, interviewing patient/family, discussion with primary team, coordination of care, and documentation. Omaira Clayton APRN-NEHAL PATIENT: KEVAN LA : 1975 ADMIT DATE: 11/10/2024 3:29 AM DISCH DATE: RESPONDING PROVIDER #: [id number] PROVIDER RESPONSE TEXT: 11/15 punch biopsy taken [...] biopsy for skin lesion: Pre/Post op diagnosis squamous cell carcinoma vs. Chronic HS wound Locations: Specimen A: Ulcer proximal B: Ulcer distal This query refers to the procedure performed [...] 3:29 AM DISCH DATE: RESPONDING PROVIDER #: [id number] PROVIDER RESPONSE TEXT: Anemia of chronic disease [...] thigh with no EBL noted 11/13 SEN Hgb 4.9, No clear source of bleeding identified, Repeat Hgb 8.2. 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) 11/21 Normocytic Anemia, Folate Deficiency continue folate supplementation 11/11 Folate 4.6 11/12 punch biopsy shows [...] Skin Goal: Promote/optimize nutrition 11/22/2024 1142 by Christnie Moore RN Outcome: Progressing Problem: Skin Goal: [...] unresponsive to multiple treatments was transferred from [facility] due to gluteal abscess, for which [...] MD Hematology-Oncology Fellow, PGY4 Hematology Consult Pager: [phone] Problem: Skin Goal: Decreased wound size/increased tissue [...] man with refractory hidradenitis supprativa transferred from [facility] on 11/10/24 with worsening chronic gluteal [...] tissue granulation at next dressing change 11/18/2024 075 by Lily Mario RN Outcome: Progressing 11/17/20241815 [...] Prevent/minimize sheer/friction injuries 11/18/2024 075 by Lily Mairo RN Outcome: Progressing 11/17/20241814 by Lily Mario [...] injury by end of the shift 11/18/2024 075 by Lily Mario RN Outcome: Progressing 11/17/20241814 by Lily Mario RN Outcome: Progressing Goal: Verbalize understanding of personal risk factors for fall in the hospital 11/18/2024 075 by Lily Mario RN Outcome: [...] for additional questions or concerns. SIGNATURE: Lynette Segovia, RANDALL-PAYROLL SPECIALIST PAGER/CONTACT: Contact information: Supportive and Palliative Oncology Monday-Monday 8 AM-5 PM [employer] chat or pager [phone]. After hours and weekends: pager [phone] Brief heme note: Kevan La is a 49 y.o. male with PMHx of HS that is refractory and unresponsive to multiple treatments was transferred from [facility] due to gluteal abscess, for which [...] MD Hematology-Oncology Fellow, PGY4 Hematology Consult Pager: [phone] Cosigned by Fransisca Diaz MD at 11/16/2024 [...] Response Nurse Note: Rapid Response Pager time: [phone] Arrival time: 1650 Event end time: 1800 Location: [facility]-a [] Triage by phone or secure messaging Rapid response initiated by: [] Rapid response RN [] Family [] Nursing Supervisor Liquefaction [x] Physician [] RADAR auto page [] Sepsis auto-page [x] RN [] RT [] FOUNDATION RELATIONS MANAGER/PA [] Other: Primary reason for call: [...] Providers present at bedside (if applicable): SANGEETA Primary Team Interventions: [] None [] ABG/VBG [...] time: 1510 Event end time: 1530 Location: [address] [] Triage by phone or secure messaging Rapid response initiated by: [] Rapid response RN [] Family [] Nursing Supervisor Liquefaction [] Physician [] RADAR auto page [] Sepsis auto-page [x] RN [] RT [] FOUNDATION RELATIONS MANAGER/PA [] Other: Primary reason for call: [...] Ryland Win, PGY3 For IR consults, call [phone] (M-F 7a-5p) EMERGENT IR Pager: [phone] (M-F 5p-7a) ([place], [place] 24hr) PATIENT: KEVAN LA : 1975 ADMIT DATE: 11/10/2024 3:29 AM DISCH DATE: RESPONDING PROVIDER #: [id number] PROVIDER RESPONSE TEXT: I agree with lokie driver diagnosis of Moderate malnutrition on 11/11/2024 CDI [...] suppurativa and gluteal abscess. Clinical Indicators: 11/11 Fbi Sharpshooter consult: Moderate malnutrition related to acute disease or injury As Evidenced by: meeting < 75% of EER for > 1 week, mild fat loss and muscle wasting and 10.2% weight loss x approximately 3 weeks. 11/11 lokie driver note indicates pt eating poorly at SNF due to poor food quality and receives protein drink only intermittently. BMI 25.93 Treatment: Fbi Sharpshooter consult recommending regular diet, Ensure Plus QD. Risk Factors: Refractory HS. Gluteal abscess. Eating poorly at SNF. Options provided: -- I agree with lokie driver diagnosis of Moderate malnutrition on 11/11/2024 -- [...] meds throughout the shift 11/12/2024 1108 by Cnithya Stover RN Outcome: Progressing 11/12/2024 1051 by [...] MD PGY-1 General Surgery Acute Care Surgery [id number] The patient's goals for the shift include [...] Prevent/manage excess moisture Outcome: Progressing Flowsheets (Taken 11/11/2024124) Prevent/manage excess moisture: Moisturize dry skin Goal: [...] from injury by end of the shift 11/10/2024 09 by Soheila Oscar [...] assistive devices by end of the shift 11/10/2024 09 by Soheila Oscar RN Outcome: Progressing 11/10/2024911 by Soheila Oscar RN Outcome: Progressing Goal: Pace activities to prevent fatigue by end of the shift 11/10/2024 09 by Soheila Oscar [...] injury throughout shift documented in this encounter [facility] Work Phone: 11-26-2024 Nurse Note Wound care completed per orders except the usage of Hibiclens. Refused by patient. Wound care to left hip area had scant purulent drainage. Area to left buttocks had no drainage, Both wounds are malodorous. Spoke with patient concerning the bed being raised, he was told to lower bed but because of his height 6'7 patient wants to keep it higher. Assumed [...] controlled. Beata NEWTON documented in this encounter [facility] Work Phone: 11-22-2024 Consult note Associated Order [...] molecule JAK1 inhibitor), who was transferred from [facility] for a worsening of L gluteal [...] Vashe wound cleanser ([employer] order # [id number]). Pack with Vashe moistened wet to dry kerlix gauze cover with ABD pad and paper tape. Recommendation: BID for distal edge of growth on distal posterior left thigh. Cover wounds with Vashe wound cleanser ([employer] order #[id number]) soaked 4 x 4 cm sterile gauze for 1-5 minutes, then gently pat dry. Cover draining wounds with 2-3 layers of accordion folded Aquacel Ag then cover with ABD pad and paper tape. (DO not cover growth as it causes the patient discomfort. Recommendations: BID for left lateral hip. Cover wounds with Vashe wound cleanser ([employer] order #[id number]) soaked 4 x 4 cm sterile gauze for 1-5 minutes, then gently pat dry. Apply clindamycin as directed by dermatology. Cover draining wounds with Aquacel Ag (Silver) ([employer] order #[id number]) Cover with Mepilex border dressing. Wound Team Plan: While inpatient, Secure chat with questions or reconsult wound care if condition worsens or changes. For urgent communications please message the group through Nav[employer]ienceaging at: [facility] Wound Care Team, Thank you. Lori Baires [...] resp. rate 18, height 2.006 m (6' 6.98), weight 104 kg (230 lb), SpO2 95%. [...] tentatively arrange follow-up with Dr. Jiang at [facility], pending transport capabilities of eventual SNF - [...] MD Hematology-Oncology Fellow, PGY5 Hematology Consult Pager: [phone] Oncology Consult Pager: [phone] Cosigned by Sreedhar Jiang MD at 11/19/2024 [...] to continue his care with our team ([facility], [facility], [place]- Dr. Valentino). Associated Order(s): Inpatient consult to [...] integrative heme/onc services. Music therapy, art therapy, music composer and pet therapy offered to pt, pt [...] resp. rate 16, height 2.006 m (6' 6.98), weight 104 kg (230 lb), SpO2 95%. [...] extremity venous duplex bilateral Result Date: 10/21/2024 [place] [id number] and Vascular Lab Report VAS US LOWER EXTREMITY VENOUS DUPLEX BILATERAL Patient Name: KEVAN Miranda Physician: [id number] Viki Colin MD Study Date: 10/21/2024 Ordering 10231 DELGADO Dhillon Physician: THELMA MRN/PID: [id number] Technologist: Javier Dhaliwal [facility] Technologist 2: Date of /Age: 9 1975 years Gender: M Admission Status: Inpatient Location [facility] Performed: Diagnosis/ICD: Pain in left leg-M79.605 CPT Codes: 17454 Peripheral venous duplex scan for DVT complete [...] Spontaneous/Phasic Peroneal Yes None PTV Yes None [id number] Viki Colin MD Final Bedside PICC Imaging [...] anxiety, fatigue, nausea, depression and pain. [facility] Integrative Medicine Symptom Management program offers multi-disciplinary [...] -Music therapy - pt agreeable; consult placed -End Trimmer - pt agreeable; consult placed -Pet therapy [...] of this patient. TRAVIS Patel (available by [employer]) [facility] Inpatient Integrative Medicine I spent 45 minutes in the care of this patient which included chart review, interviewing patient/family, discussion with primary team, coordination of care, and documentation. Medical Decision Making was high level due to high complexity of problems, extensive data review, and high risk of management/treatment. Associated Order(s): Inpatient consult to [facility] Adult Supportive Oncology SUPPORTIVE AND PALLIATIVE ONCOLOGY [...] medications to patient prior to discharge via [facility] pharmacy. Prescriptions will need to be sent 48-72 hours prior to discharge so that a prior authorization can be completed. Discharge date: unknown pending acute issues Patient does not qualify for an appointment with Outpatient Supportive Oncology- needs to establish with Oncology outpatient SIGNATURE: TRAVIS Rodas PAGER/CONTACT: Contact information: Supportive and Palliative Oncology Monday-Monday 8 AM-5 PM [employer] Secure chat or pager [phone]. After hours and weekends: pager [phone] Inpatient consult to [facility] Adult Supportive Oncology Consult performed by: TRAVIS Rodas Consult ordered by: Claudio Plunkett MD PALLIATIVE MEDICINE OUTPATIENT PROVIDER: None CURRENT ATTENDING PROVIDER: Claudio Plunkett MD Medical Oncologist: No care team foreman to display Radiation Oncologist: No care team foreman to display Primary Physician: No primary care [...] night. Does not like having to take addictive meds but agrees he needs them right now. [...] alone. Has supportive brother and parents in [place], [place]. 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 Social History: reports that he [...] Value Ventricular Rate 77 Atrial Rate 77 NH Interval 146 QRS Duration 108 QT Interval 368 QTC Calculation(Bazett) 416 P Greenock 55 R Greenock 72 T Greenock 66 QRS Count 13 Q Onset 211 [...] limitations due to pain Joys/meaning/strength: Family and [place] Understanding of health: Demonstrates good prognostic understanding [...] of shared electronic medical record/secure chat/email or [id number]. We will continue to follow. Please contact us for additional questions or concerns. SIGNATURE: TRAVIS Rodas PAGER/CONTACT: Contact information: Supportive and Palliative Oncology Monday-Monday 8 AM-5 PM [employer] Secure chat or pager [phone]. After hours and weekends: pager [phone] Associated Order(s): IP CONSULT TO HEMATOLOGY Name: [...] unresponsive to multiple treatments was transferred from [facility] due to gluteal abscess, for which [...] resp. rate 16, height 2.006 m (6' 6.98), weight 104 kg (230 lb), SpO2 95%. [...] Perry Baires 10/10/2024 5:20 PM Dictation workstation: [id number] === 10/10/24 === CT PELVIS W IV [...] as stated. This study was interpreted at [place], [place] Signed by: Beronica Valentin 10/10/2024 11:03 PM Dictation workstation: [id number] Assessment/Plan Kevan La is a 49 y.o. male with PMHx of refractory HS that is unresponsive to multiple treatments was transferred from [facility] due to left gluteal randell abscess, [...] MD Hematology-Oncology Fellow, PGY4 Hematology Consult Pager: [phone] Cosigned by Fransisca Diaz MD at 11/15/2024 [...] Patient was then brought from SNF to [facility] on 11/08 due to concern for worsening L buttock and gluteal HS and possible sepsis. Patient was placed on vanc/zosyn for sepsis; wound and blood cx collected at that time show NGTD. CT scan from [facility] revealed large ulcerative wound in left [...] 200 mL/hr, Last Rate: 200 mL/hr (11/11/24 2248) sodium chloride 0.9%, 200 mL/hr PRN medications [...] CHLORIDE mmol/L 107 108* 104 CO2 mmol/L BUN mg/dL 11 11 16 CREATININE mg/dL [...] Nonreactive Nonreactive Final No results found for: HEPCABINIT, HEPCAB, HCVPCRQUANT Microbiology Susceptibility data from last 90 [...] molecule JAK1 inhibitor), who was transferred from [facility] for a worsening of L gluteal [...] Vashe wound cleanser ([employer] order # [id number]). Pack with Vashe moistened wet to dry kerlix gauze cover with ABD pad and paper tape. 11/11/24 1700 Wound 09/13/24 Other (comment) Buttock Left Date First Assessed/Time First Assessed: 09/13/24 5275 Present on Original Admission: Yes Hand Hygiene [...] with Vashe wound cleanser ([employer] order #[id number]) soaked 4 x 4 cm sterile gauze for 1-5 minutes, then gently pat dry. Cover draining wounds with 2-3 layers of accordion folded Aquacel Ag then cover with ABD pad and paper tape. (DO not cover growth as it causes the patient discomfort. Wound location: Lateral Left hip Recommendations: BID Cover wounds with Vashe wound cleanser ([employer] order #[id number]) soaked 4 x 4 cm sterile gauze for 1-5 minutes, then gently pat dry. Apply clindamycin as directed by dermatology. Cover draining wounds with Aquacel Ag (Silver) ([employer] order #[id number]) Cover with Mepilex border dressing. Wound Team [...] molecule JAK1 inhibitor), who was transferred from [facility] for a worsening of L gluteal [...] Per IM notes: Patient last admitted at [facility] 10/11 - 10/23/2024 for a similar complaint [...] cultures later resulted with staph hominis slackia exmohindera on 10/16 and ID was consulted with plan to continue Unasyn until 10/28/2024. He was discharged with PICC line to [facility] with plan to follow-up with Dermatology 11/12/2024 for HS-301 trial medication. On 11/08/2024 the patient was sent to [facility] from [facility] for possible sepsis. On arrival to the [...] his stay and he was transferred to [facility] for further care. The patient was seen [...] He was able to tolerate food at [facility]. Patient notes he has been bedbound for some time now, since at least 06/2023 which he attributes to weakness in his legs/feet. HS history: He reports a history of HS from 2016. Previous therapies include doxycycline, minocycline, isotretinoin, clindamycin/rifampin, Humira, Remicade, staph decolonization for mupirocin, moxifloxacin/metronidazole, and apremilast. He was being treated by [facility] Dermatology. Pt reports that he [...] resp. rate 16, height 2.006 m (6' 6.98), weight 104 kg (230 lb), SpO2 95%. [...] cultures. Will follow cultures already obtained at [facility] and will obtain tissue culture 11/12/24. [...] of left gluteal disease. Pt transferred from [facility] with worsened pain, swelling and drainage [...] eating 100% of dinner last night - chicken parmesan, tater tots and lemon meringue pie. ) Patient with good appetite, but states he hasn't been eating well at the SNF due to poor quality of food. Reports receiving 3 meals a day, but eating < half. States he receives a 4 oz protein drink intermittently. At home (baseline), patient eats 2 meals a day (lunch and dinner) and drinks an Ensure for breakfast. Patient amenable to receiving 1 Ensure daily while admitted. Declined offer for Ensure BID. Allergy to banana and avocado. Anthropometrics: Height: 200.6 cm (6' 6.98) Weight: 104 kg (230 lb) BMI (Calculated): [...] left thigh/hip hidradenitis) Digestive System Findings: Constipation (maybe) Mouth Findings: (None.) Nutrition Significant Labs: CBC [...] , Vit B12: No results found for: TUPTTCES23 Nutrition Specific Medications: Scheduled medications acetaminophen, 975 [...] Except: Answer: Sips with meds 11/10/24 1022 02/23/25 0427 May Participate in Room Service ( [...] Order(s): IP CONSULT TO ACUTE CARE SURGERY [facility] ACUTE CARE SURGERY - HISTORY AND PHYSICAL / CONSULT Patient Name: Kevan La Admit Date: [id number] : 1975 AGE: 49 y.o. GENDER: male TODAY'S ASSESSMENT AND PLAN OF CARE: 49 year old male with significant history of hidradenitis suppurativa, who recently underwent I&D with acute care surgery on 10/13, was transferred from [facility] with concern of a gluteal fluid collection. Acute care surgery was consulted for consideration of repeat I&D. Patient is currently hemodynamically stable. - No emergent surgical intervention indicated at this time. Will need to review imaging for possible mass vs infection before potential surgical intervention. Radiology imaging request sent for CT pelvis from [facility]. if not able to transfer imaging from [facility], may need repeat CT scan. Tadeo Cano MD PGY 5 General Surgery Acute Care Surgery [id number] CHIEF COMPLAINT/REASON FOR CONSULT: 49 year old male with significant history of hidradenitis suppurativa, who recently underwent I&D with acute care surgery on 10/13, was transferred from [facility] with concern of a gluteal fluid collection. Acute care surgery was consulted for consideration of repeat I&D. Briefly this patient has a history of refractory HS and did not respond to multiple lines of treatment. He was admitted to [facility] between 10/11-10/23 and underwent I&D on 10/13 for infection control. He had positive blood culture and was on antibiotics. He was eventually discharged to SNF. On 11/08 patient was brought to [facility] for concern of sepsis. He was [...] Need to review most recent CT from [facility] for comparison, radiology request sent. LABS: [...] of left gluteal disease. Pt transferred from [facility] with worsened pain, swelling and drainage [...] notable for wbc 11.8. CT report from [facility] notes concern for a 15cm enhancing gluteal mass however images not available. We have requested images from [facility] and will evaluate these prior to determining whether further drainage or biopsy are needed. Eitan Muhammad MD Trauma, Critical Care, and Acute Care Surgery Pager: [phone] Associated Order(s): Inpatient consult to Endocrinology Inpatient [...] 2/2 NSAIDs use for HS?, returning to [facility] 11/10/2024 as a transfer from [facility] regarding 14cm gluteal fluid collection. Notably the patient was recently admitted to [facility] 10/11 - 10/23/2024 for a similar complaint, imaging showed showed worsening infection in L. gluteus randell with serpiginous fluid pockets c/w abscess (9.2 x 5.7 x 13.2cm). He was started on broad spectrum iv antibiotics , underwent I&D with ACS on 10/13 c/b arterial bleed which was stitched. He was discharged with PICC line to [facility] with plan to follow-up with Dermatology 11/12/2024 for HS-301 trial medication. On 11/08/2024 the patient was sent to [facility] from [facility] for possible sepsis. On arrival to the [...] his stay and he was transferred to [facility] for further care. The patient was seen [...] He was able to tolerate food at [facility]. Patient notes he has been bedbound [...] weeks since he was transferred to the long term Denies any chest pain, shortness of breath, [...] was not receiving any PT at the long term. He also mentioned that his activity level [...] resp. rate 17, height 2.006 m (6' 6.98), SpO2 94%. Relevant Results Results from last [...] 2/2 NSAIDs use for HS?, returning to [facility] 11/10/2024 as a transfer from [facility] regarding 14cm gluteal fluid collection. Endocrinology [...] MD Endocrinology fellow, PGY 5 Endocrinology pager [phone], secure message 8 AM to 5 PM. [...] on 11/10/2024 Exposure target: AUC24 (range)400-600 mg/L.hr [id number]: 380 mg/L.hr AUC24,ss: 507 mg/L.hr Probability of AUC24 > 400: 76 % Follow-up level tomorrow morning. Will continue to monitor renal function daily while on vancomycin and order serum creatinine at least every 48 hours if not already ordered. Follow for continued vancomycin needs, clinical response, and signs/symptoms of toxicity. Long Swain PharmD documented in this encounter [facility] Work Phone: 11-15-2024 Procedure note Associated Ord er(s): Biopsy Post-Procedure Diagnose(s): Skin lesion Biopsy Date/Time: 11/15/2024 11:31 AM Performed by: Brigitte Coy MD Authorized by: Lauri Mesa MD Consent: Consent obtained: Verbal Consent given by: Patient Risks, benefits, and alternatives were discussed: yes Risks discussed: Bleeding, infection, pain and poor cosmetic result Alternatives discussed: No treatment [place] protocol: Procedure explained and questions answered to [...] poor cosmetic result Alternatives discussed: No treatment [place] protocol: Procedure explained and questions answered to [...] Lauri Mesa MD documented in this encounter [facility] Work Phone: 11-10-2024 History and physical note History Of Present Illness Kevan La is a 49 y.o. male with refractory hidradenitis supprativa (HS) not responding to povorcitinib (RCT candidate), apremilast, isotretinoin, adalimumab, infliximab, moxifloxacin/metronidazole, minocyclin, clindamycin, rifampin, augmentin and doxycycline, returning to [facility] 11/10/2024 as a transfer from [facility] regarding 14cm gluteal fluid collection. Notably the patient was recently admitted to [facility] 10/11 - 10/23/2024 for a similar complaint [...] cultures later resulted with staph hominis maryia dhavala on 10/16 and ID was consulted with plan to continue Unasyn until 10/28/2024. He was discharged with PICC line to SNF with plan to follow-up with Dermatology 11/12/2024 for HS-301 trial medication. On 11/08/2024 the patient was sent to [facility] from [facility] for possible sepsis. On arrival to the [...] his stay and he was transferred to [facility] for further care. The patient was seen [...] He was able to tolerate food at [facility]. Patient notes he has been bedbound [...] Alb 2.5 A1c 11/08/2024: 5.2 UA 11/08/2024: [place] CT Pelvis 11/08/2024: There is a large [...] clindamycin, rifampin, augmentin and doxycycline, returning to [facility] 11/10/2024 as a transfer from [facility] regarding 14cm gluteal fluid collection. He [...] on last admission, 1.48 on admission to [facility] 11/08 > 1.42, prior Cr in [...] Continue with antibiotics. documented in this encounter [facility] Work Phone: 11-09-2024 Note Internal Medicine: M [...] a 49 y.o. male that presented to [facility] on 11/08/2024 and was admitted for wound check. Patient arrived to [facility] from SNF fro possible sepsis related [...] here. Decision was to transfer patient to [facility] for further care. Of note, patient [...] to Address at Followup Visit: Not Applicable [facility] 11-09-2024 Hospital course Narrative Internal Medicine: [...] a 49 y.o. male that presented to [facility] on 11/08/2024 and was admitted for wound check. Patient arrived to [facility] from SNF fro possible sepsis related [...] here. Decision was to transfer patient to [facility] for further care. Of note, patient [...] 9:40 PM EST documented in this encounter [facility] 11-09-2024 Nurse Note transfer center called, stated still no bed are available but checking on if any changes in pt condition. Updated vitals given and isolation status confirmed. Enrique at the transfer center given unit phone number and he stated they will reach out when bed available. [facility] 11-09-2024 Nurse Note transfer center called, stated still no bed are available but checking on if any changes in pt condition. Updated vitals given and isolation status confirmed. Enrique at the transfer center given unit phone number and he stated they will reach out when bed available. documented in this encounter [facility] 11-09-2024 Plan of care note Problem: [...] My discharge needs are met Outcome: Progressing [facility] 11-09-2024 Miscellaneous Notes Problem: Knowledge Deficit [...] met Outcome: Progressing documented in this encounter [facility] 11-09-2024 History of Present illness Narrative [...] creatinine, and vancomycin levels interfaced automatically to [employer] and data has been analyzed and interpreted. [...] chart review patient will be transferred to [facility] for further care, currently waiting [...] 104* 101* Procal: No results for input(s): PROCAL in the last 72 hours. CBC: Recent Labs 11/08/24 1531 11/09/24 0607 WBC 13.9* 13.0* HGB 10.4* 8.8* HCT 31.1* 27.7* PLT 634* 524* MCV 84.5 87.1 RDW 16.5* 16.4* ABGs: No results for input(s): PHART, HQM0QYU, PO2ART, ICN1WGF, SO2ART, F4VJVFHH in the last 72 hours. Lactic Acid: Recent Labs 11/08/24 153 LACTATE 1.2 INR: No results for input(s): INR in the last 72 hours. Cardiac Injury Profile: No results for input(s): CKTOTAL, CKMB, TROPONINI, TROPHSBASE, TROPHS2, BNP in the last 72 hours. Labs in [...] to Discharge: patient will be transferred to [facility] for further care, currently waiting for bed assignment. Patient has been receiving care at including clinical trial medications for his hidradenitis suppurativa. - Goals of Care: FULL CODE - DVT Prophylaxis: Lovenox 40 q24hr - CrCl >30 - GI Prophylaxis: Protonix daily - Diet: NPO Cosigned by Paulino Larios MD at 11/09/2024 1:50 PM EST documented in this encounter [facility] 11-09-2024 Note Pharmacy to Dose Van comycin - Progress Note Lab Results Component Value Date CREATININE 1.42 (H) 11/09/2024 BUN 19 11/09/2024 WBC 13.0 (H) 11/09/2024 Doses, serum creatinine, and vancomycin levels interfaced automatically to [employer] and data has been analyzed and interpreted. [...] DATE: 11/09/24 TIME: 8:58 AM Kristy Ferguson [facility] Clinical Pharmacist Available via Secure Chat [facility] [employer] [facility] 11-09-2024 Note Med Team Progress No delfino [...] chart review patient will be transferred to [facility] for further care, currently waiting [...] CL 103 107 CO2 24 24 BUN CREATININE 1.39* 1.42* CALCIUM 13.5* 12.1* LFTs: Recent Labs 11/08/24 1531 11/08/24 1541 11/09/24 0607 AST 14 -- 11 ALT 7 -- <6 PROT 7.7 -- 6.3* ALBUMIN 3.0* -- 2.5* BILITOT 0.5 -- 0.4 BILIRUBINU -- Negative -- ALKPHOS 84 -- 70 Glucose: Recent Labs 11/08/24 1531 11/09/24 0607 GLUCOSE 104* 101* Procal: No results for input(s): PROCAL in the last 72 hours. CBC: Recent Labs 11/08/24 1531 11/09/24 0607 WBC 13.9* 13.0* HGB 10.4* 8.8* HCT 31.1* 27.7* PLT 634* 524* MCV 84.5 87.1 RDW 16.5* 16.4* ABGs: No results for input(s): PHART, GBE8SBT, PO2ART, WOJ2PKZ, SO2ART, L9TXVCYS in the last 72 hours. Lactic Acid: Recent Labs 11/08/24 1531 LACTATE 1.2 INR: No results for input(s): INR in the last 72 hours. Cardiac Injury Profile: No results for input(s): CKTOTAL, CKMB, TROPONINI, TROPHSBASE, TROPHS2, BNP in the last 72 hours. Labs in [...] count of 634 (more content not included)... [facility] 11-09-2024 Emergency department Note This RN spoke to Enrique at [facility] for patient update. He stated that they are currently waiting for a bed assignment for the patient at [facility]. [facility] 11-09-2024 Emergency department Note This RN spoke to Enrique at [facility] for patient update. He stated that they are currently waiting for a bed assignment for the patient at [facility]. Provider messaged about BP and [...] 1975 Date of evaluation: 11/08/2024 ED Provider: uJvenal Fierro MD CHIEF COMPLAINT Chief Complaint Patient [...] Resource Strain: Medium Risk (10/12/2024) Received from [facility] Overall Financial Resource Strain (CARDIA) Difficulty of Paying Living Expenses: Somewhat hard Food Insecurity: Food Insecurity Present (10/11/2024) Received from [facility] Hunger Vital Sign Worried About Running Out of Food in the Last Year: Sometimes true Ran Out of Food in the Last Year: Sometimes true Transportation Needs: No Transportation Needs (10/12/2024) Received from [facility] PRAPARE - Transportation Lack of Transportation (Medical): No Lack of Transportation (Non-Medical): No Intimate Partner Violence: Not At Risk (10/11/2024) Received from [facility] Humiliation, Afraid, Rape, and Kick questionnaire Fear of Current or Ex-Partner: No Emotionally Abused: No Physically Abused: No Sexually Abused: No Housing Stability: Low Risk (10/12/2024) Received from [facility] Housing Stability Vital Sign Unable to Pay for Housing in the Last Year: No Number of Times Moved in the Last Year: 1 Homeless in the Last Year: No Recent Concern: Housing Stability - High Risk (09/17/2024) Received from [facility] Housing Stability Vital Sign Unable to Pay [...] Procedure Abnormality Status --------- ------ Culture, Aerobic Bacteri...[[id number]] Anaerobic culture[[id number]] Please view results for these tests on the individual orders. CULTURE, AEROBIC BACTERIA WITH GRAM STAIN CULTURE ANAEROBIC CBC WITH AUTO DIFFERENTIAL COMPREHENSIVE METABOLIC PANEL LACTIC ACID WITH REFLEX COMPLETE URINALYSIS WITH REFLEX TO CULTURE Narrative: The following orders were created for panel order Urinalysis Complete with reflex to Culture. Procedure Abnormality Status --------- ------ Complete Urinalysis[[id number]] Please view results for these tests on [...] Medicine Provider Juvenal Fierro MD Resident 11/08/24 8873 Cosigned by Fer Kennedy MD at 11/08/2024 6:55 PM EST Emergency Department Encounter [facility] EMERGENCY DEPT Patient: Kevan La : [...] pressure and wound check. Patient coming from [facility] for possible sepsis. Patient has chronic refractory [...] for clarification.) Fer Kennedy MD Acute Care [facility] Fer Kennedy MD 11/08/24 1651 documented in this encounter [facility] 11-08-2024 Consult note Formatting of th [...] Height as of 09/13/24: 2.007 m (6' 7). Weight as of this encounter: 104 kg [...] IVPB 2,000 mg 2,000 mg 250 mL/hr 02/21/25 1615 New Bag piperacillin-tazobactam (Zosyn) IVPB 4,500 mg 4,500 mg 200 mL/hr Assessment/Plan: Doses, serum creatinine, and vancomycin levels interfaced automatically to [employer] and data has been analyzed and interpreted. [...] PharmD Clinical Pharmacist Available via Secure Chat [facility] 11-08-2024 Consult note Formatting of th is [...] Height as of 09/13/24: 2.007 m (6' 7). Weight as of this encounter: 104 kg [...] creatinine, and vancomycin levels interfaced automatically to [employer] and data has been analyzed and interpreted. [...] via Secure Chat documented in this encounter [facility] 11-08-2024 Emergency department Note Provider messaged about BP and MAP [facility] 11-08-2024 Emergency department Note Provider messaged about orders [facility] 11-08-2024 History and physical note Internal Medicine: Med Team Initial History and Physical Kevan La : 1975(49 y.o.) Date: November 08, 2024 TEAM: B Attending: Dr. Larios Subjective: Chief Complaint: Wound Check HPI Kevan La is a 49 y.o. male with PMH chronic hidradenitis suppurativa that presented to [facility] on 11/08/2024 from [facility]. Patient was seen at for severe at [...] arrived to [facility] ED from [facility] for possible sepsis related to chronic hidradenitis affecting mostly his left hip and going down into his left thigh. At [facility] nurse noted that his wounds were draining [...] GLUCOSE 104* Procal: No results for input(s): PROCAL in the last 72 hours. CBC: Recent Labs 11/08/24 1531 WBC 13.9* HGB 10.4* HCT 31.1* PLT 634* MCV 84.5 RDW 16.5* ABGs: No results for input(s): PHART, WWZ5IXP, PO2ART, SUO9IGT, SO2ART, M9NREMRE in the last 72 hours. Lactic Acid: Recent Labs 11/08/24 1531 LACTATE 1.2 INR: No results for input(s): INR in the last 72 hours. Cardiac Injury Profile: No results for input(s): CKTOTAL, CKMB, TROPONINI, TROPHSBASE, TROPHS2, BNP in the last 72 hours. Labs in Last 3 months: No results found for: TSH, VITD25, PSA, INR, GLUF Assessment and Plan: #Chronic hidradenitis suppurativa #Leukocytosis [...] nowOverweight (BMI 25-29.9) - Disposition: Admit to [facility]. - Given the signs and symptoms [...] care. - he is well-known at in [place], and they will accept transfer of the pt when a bed is available. [facility] 11-08-2024 Note Attestation signed by Paulino [...] care. - he is well-known at in [place], and they will accept transfer of the pt when a bed is available. Internal Medicine: Med Team Initial History and Physical Kevan La : 1975(49 y.o.) Date: November 08, 2024 TEAM: Isidro Attending: Dr. Larios Subjective: Chief Complaint: Wound Check HPI Kevan La is a 49 y.o. male with PMH chronic hidradenitis suppurativa that presented to [facility] on 11/08/2024 from [facility]. Patient was seen at for severe at [...] arrived to [facility] ED from [facility] for possible sepsis related to chronic hidradenitis affecting mostly his left hip and going down into his left thigh. At [facility] nurse noted that his wounds were draining [...] 1900 BP: 76/ (more content not included)... [facility] 11-08-2024 History and physical note Internal Medicine: Med Team Initial History and Physical Kevannicolasa La : 1975(49 y.o.) Date: November 08, 2024 TEAM: Isidro Attending: Dr. Larios Subjective: Chief Complaint: Wound Check HPI Kevan La is a 49 y.o. male with PMH chronic hidradenitis suppurativa that presented to [facility] on 11/08/2024 from [facility]. Patient was seen at for severe at [...] arrived to [facility] ED from [facility] for possible sepsis related to chronic hidradenitis affecting mostly his left hip and going down into his left thigh. At [facility] nurse noted that his wounds were draining [...] GLUCOSE 104* Procal: No results for input(s): PROCAL in the last 72 hours. CBC: Recent Labs 11/08/24 1531 WBC 13.9* HGB 10.4* HCT 31.1* PLT 634* MCV 84.5 RDW 16.5* ABGs: No results for input(s): PHART, TRY0OQX, PO2ART, FUT4WOG, SO2ART, P4YYYGFN in the last 72 hours. Lactic Acid: Recent Labs 11/08/24 1531 LACTATE 1.2 INR: No results for input(s): INR in the last 72 hours. Cardiac Injury Profile: No results for input(s): CKTOTAL, CKMB, TROPONINI, TROPHSBASE, TROPHS2, BNP in the last 72 hours. Labs in Last 3 months: No results found for: TSH, VITD25, PSA, INR, GLUF Assessment and Plan: #Chronic hidradenitis suppurativa #Leukocytosis [...] nowOverweight (BMI 25-29.9) - Disposition: Admit to [facility]. - Given the signs and symptoms [...] care. - he is well-known at in [place], and they will accept transfer of the pt when a bed is available. documented in this encounter [facility] 11-08-2024 Emergency department Note Patient requested pain medication and dinner. This nurse messaged provider [facility] 11-08-2024 Emergency department Note Patient is aware of patients BP and MAP. [facility] 11-08-2024 Emergency department Note Liter of NS hung for systolic of 88. IV obtained with blood work and first set of cultures. Will notify doctor of BP. [facility] 11-08-2024 Physician Emergency department Note EMERGENCY DEPARTMENT [...] Resource Strain: Medium Risk (10/12/2024) Received from [facility] Overall Financial Resource Strain (CARDIA) Difficulty of Paying Living Expenses: Somewhat hard Food Insecurity: Food Insecurity Present (10/11/2024) Received from [facility] Hunger Vital Sign Worried About Running Out of Food in the Last Year: Sometimes true Ran Out of Food in the Last Year: Sometimes true Transportation Needs: No Transportation Needs (10/12/2024) Received from [facility] PRAPARE - Transportation Lack of Transportation (Medical): No Lack of Transportation (Non-Medical): No Intimate Partner Violence: Not At Risk (10/11/2024) Received from [facility] Humiliation, Afraid, Rape, and Kick questionnaire Fear of Current or Ex-Partner: No Emotionally Abused: No Physically Abused: No Sexually Abused: No Housing Stability: Low Risk (10/12/2024) Received from [facility] Housing Stability Vital Sign Unable to Pay for Housing in the Last Year: No Number of Times Moved in the Last Year: 1 Homeless in the Last Year: No Recent Concern: Housing Stability - High Risk (09/17/2024) Received from [facility] Housing Stability Vital Sign Unable to Pay [...] Procedure Abnormality Status --------- ------ Culture, Aerobic Bacteri...[[id number]] Anaerobic culture[[id number]] Please view results for these tests on the individual orders. CULTURE, AEROBIC BACTERIA WITH GRAM STAIN CULTURE ANAEROBIC CBC WITH AUTO DIFFERENTIAL COMPREHENSIVE METABOLIC PANEL LACTIC ACID WITH REFLEX COMPLETE URINALYSIS WITH REFLEX TO CULTURE Narrative: The following orders were created for panel order Urinalysis Complete with reflex to Culture. Procedure Abnormality Status --------- ------ Complete Urinalysis[[id number]] Please view results for these tests on [...] Medicine Provider Juvenal Fierro MD Resident 11/08/24 3862 Cosigned by Fer Kennedy MD at 11/08/2024 6:55 PM EST [facility] Phone: 11-08-2024 Physician Emergency department Note Emergency Department Encounter [facility] EMERGENCY DEPT Patient: Kevan La : [...] pressure and wound check. Patient coming from [facility] for possible sepsis. Patient has chronic refractory [...] dictating provider for clarification.) Fer Kennedy MD [facility] Fer Kennedy MD 11/08/24 9194 [facility] Phone: 10-23-2024 Nurse Note Transport forgot paper chart- all chart information, including script faxed to [facility]- fax #[phone] ATTENTION : NURSE MAGNUS This nurse called report to Magnus RN at [facility]-the facility of choice by patient. Patient leaving [...] dsg twice daily. documented in this encounter [facility] Work Phone: 10-23-2024 Miscellaneous Notes Problem: Pain [...] rifampin, augmentin and doxycycline. He came to [facility] ED with severe HS and associated [...] Nephropathy - Cr 1.69 on admission - prison NSAID use for HS, most recently was [...] rifampin, augmentin and doxycycline. He came to [facility] ED with severe HS and associated [...] Nephropathy - Cr 1.69 on admission - prison NSAID use for HS, most recently was [...] Labs, ECG/Telemetry: Yes Risks/Benefits/Alternatives Discussed with Patient/POA/Legal Manager Assessment: Yes Stop Sign on Door: Yes Time [...] Yes Tip Location:SVC Line Confirmation: ECG Lot #:[id number] Real Estate Legal Secretary: Bard PICC Line Exp Date:07/18/2025 Securement: Stat Lock Post Procedure Checklist: Handoff with RN; Obtain all new IV tubing prior to use; Bed at lowest level and wheels locked; Line discharge information at bedside. Additional Details: Line was inserted using Modified Seldinger's Technique. Placed by: Shreya Bailey RN-[facility] Associated Problem(s): Abscess Kevan La is a 49 y.o. male with refractory hidradenitis supprativa (HS) not responding to povorcitinib (RCT candidate), apremilast, isotretinoin, adalimumab, infliximab, moxifloxacin/metronidazole, minocyclin, clindamycin, rifampin, augmentin and doxycycline. 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 Problem: Pain - Adult [...] rifampin, augmentin and doxycycline. He came to [facility] ED with severe HS and associated [...] Nephropathy - Cr 1.69 on admission - prison NSAID use for HS, most recently was [...] rifampin, augmentin and doxycycline. He came to [facility] ED with severe HS and associated [...] Nephropathy - Cr 1.69 on admission - meterman NSAID use for HS, most recently was [...] rifampin, augmentin and doxycycline. He came to [facility] ED with severe HS and associated [...] Updates 10/17: -Blood culture 10/10 with slacynthiaia exmohindera in addition to other prior culture [...] Nephropathy - Cr 1.69 on admission - prison NSAID use for HS, most recently was [...] rifampin, augmentin and doxycycline. He came to [facility] ED with severe HS and associated [...] Nephropathy - Cr 1.69 on admission - prison NSAID use for HS, most recently was [...] Cabrera MD PGY1 Acute Care Surgery Pager [phone] The patient's goals for the shift include [...] rifampin, augmentin and doxycycline. He came to [facility] ED with severe HS and associated [...] Nephropathy - Cr 1.69 on admission - prison NSAID use for HS, most recently was [...] rifampin, augmentin and doxycycline. He came to [facility] ED with severe HS and associated [...] 1.69 on admission (1.44 on 09/13/2024) - meterman NSAID use for HS, most recently was [...] rifampin, augmentin and doxycycline. He came to [facility] ED with severe HS and associated [...] 1.69 on admission (1.48 on 09/12/2024) - prison NSAID use for HS, most recently was [...] F) Resp 16 Ht 2.007 m (6' 7) Wt 101 kg (222 lb) SpO2 98% [...] Thierno Chavis MD PGY-2 General Surgery ACS [id number] Rapid Response Nurse Note: RADAR alert: 6 Pager time: [phone] Arrival time: 1124 Event end time: 1156 Location: 2075 [] Triage by phone or secure messaging Rapid response initiated by: [] Rapid response RN [] Family [] Nursing Supervisor Liquefaction [] Physician [x] RADAR auto page [] Sepsis auto-page [] RN [] RT [] FOUNDATION RELATIONS MANAGER/PA [] Other: Primary reason for call: [...] Note Date: 10/10/2024 - 10/13/2024 OR Location: [facility] OR Name: Kevan La, : 1975, Age: 49 y.o., , Sex: male Diagnosis Pre-op Diagnosis * Hidradenitis suppurativa [L73.2] Post-op Diagnosis * Hidradenitis suppurativa [L73.2] Procedures INCISION AND DRAINAGE, THIGH 02360 - NH I&D DEEP ABSC BURSA/HEMATOMA THIGH/KNEE REGION Surgeons * Momo Dougherty - Primary Resident/Fellow/Other Rod Buster Helper: Surgeons and Role: * Thierno Chavis MD - Resident - Assisting Staff: Subsurface Augmentee Elint Operator: Magda Scrub Person: Mack Anesthesia Staff: Anesthesiologist: Kristy Clarke MD Astrophysics Teacher: Chelle Singh MD Procedure Summary Anesthesia: General [...] operating room availability. Please make patient NPO @[place]. Will obtain consent in AM. D/w Dr. Ladonna Chavis MD PGY-2 Gen Surg ACS [id number] Cosigned by Momo Dougherty MD at 10/13/2024 [...] rifampin, augmentin and doxycycline. He came to [facility] ED with severe HS and associated [...] 1.69 on admission (1.48 on 09/12/2024) - prison NSAID use for HS, most recently was [...] rifampin, augmentin and doxycycline. He came to [facility] ED with severe HS and associated [...] course of Unasyn. documented in this encounter [facility] Work Phone: 10-22-2024 History of Present illness Narrative 10/22/24 1536 Discharge Planning Expected Discharge Disposition SNF ([facility]) What day is the transport expected? 10/23/24 What time is the transport expected? 1400 Transport confirmed via [facility] ([phone]), N2N # [phone], 100 cabrera. Medical team, pt's RN, and resource RN aware. Kevan La is a 49 y.o. male on day 11 of admission presenting with Gluteal abscess. Pt is medically ready. [facility] confirmed with pt that he is agreeable to [facility] if able to accept as they are possibly the only accepting SNF at this time with a pending Medicaid #. 1538-Per HRS, pt's pending Medicaid # is [id number]. [facility] also sent [facility] pt's Medicaid application as requested. 1544-[facility] confirmed 7000 completed and able to accept pt. [facility] will work on transport. Physical Therapy Physical Therapy Treatment Patient Name: Kevan La Department: [place] [address] Room: -A Today's Date: 10/22/2024 Time Calculation [...] on L buttocks while sitting Outcome Measures: [facility] Basic Mobility Turning from your back to [...] resp. rate 18, height 2.007 m (6' 7), weight 101 kg (222 lb), SpO2 96%. [...] rifampin, augmentin and doxycycline. He came to [facility] ED with severe HS and associated [...] Nephropathy - Cr 1.69 on admission - meterman NSAID use for HS, most recently was [...] resp. rate 18, height 2.007 m (6' 7), weight 101 kg (222 lb), SpO2 96%. [...] rifampin, augmentin and doxycycline. He came to [facility] ED with severe HS and associated [...] Nephropathy - Cr 1.69 on admission - prison NSAID use for HS, most recently was [...] 35 minutes in professional medical decision making, [id number] examination and counseling, care coordination, chart review, [...] resp. rate 18, height 2.007 m (6' 7), weight 101 kg (222 lb), SpO2 100%. [...] rifampin, augmentin and doxycycline. He came to [facility] ED with severe HS and associated [...] Nephropathy - Cr 1.69 on admission - prison NSAID use for HS, most recently was [...] 35 minutes in professional medical decision making, [id number] examination and counseling, care coordination, chart review, discussions with consultants, and care planning Transitional Jacquard Fixer Progress Note: Contacted pt to obtain his SNF FOC. Pt is [facility] in [facility] (able to accept) and [facility] (interested). [facility] will contact pt to complete a Medicaid questionnaire and awaiting [facility] liaison to review. Plan to follow up with SNFs on Monday. Also, plan to follow up with HRS to obtain a pending Medicaid number. family resource coordinator will continue to follow for discharge planning needs. iAda Sommer MSN, RN- [facility] ([facility]) [phone] Vancomycin Dosing by Pharmacy- Cessation of Therapy [...] (Rehab/SNF/etc) Type of Post Acute Facility Services care home Expected Discharge Disposition SNF Per [facility] SN[facility] confirmed they are able to accept pt with pending Medicaid number, [facility], [facility], [facility] and [facility] SNF's are still reviewing. Update on acceptance requested from the reviewing SNF's, all SNF's were updated pt will discharge on IV Vanco every 12 hours + IV Unasyn every 6 hours with wound care BID. Pt was updated regarding the accepting SNF, and 4 reviewing SNF's, he stated he will look into these facilities and provide FOC tomorrow. Pt will need pending [place] Medicaid number and 7000 form prior to discharge. Care Transitions team will continue to follow for discharge planning needs. Lorenza Morales RN Transitional [facility]er ([facility]) [phone] or [phone] Vancomycin Dosing by Pharmacy- FOLLOW UP Kevan [...] on 10/19/2024 Exposure target: AUC24 (range)400-600 mg/L.hr [id number]: 447 mg/L.hr AUC24,ss: 474 mg/L.hr Probability of [...] of osteomyelitis. Micro: 10/10: Blood Cx: Marta Mayia in anaerobic bottle, Staph hominis in another [...] ID Fellow. For new consults, contact pager [phone]. EPIC chat preferred. Ivette Pina MD I [...] resp. rate 16, height 2.007 m (6' 7), weight 101 kg (222 lb), SpO2 97%. [...] rifampin, augmentin and doxycycline. He came to [facility] ED with severe HS and associated [...] Nephropathy - Cr 1.69 on admission - prison NSAID use for HS, most recently was [...] 35 minutes in professional medical decision making, qquq-hu-jhff examination and counseling, care coordination, chart review, [...] resp. rate 18, height 2.007 m (6' 7), weight 101 kg (222 lb), SpO2 97%. [...] rifampin, augmentin and doxycycline. He came to [facility] ED with severe HS and associated [...] Nephropathy - Cr 1.69 on admission - meterman NSAID use for HS, most recently was [...] 40 minutes in professional medical decision making, ogur-qe-dcsl examination and counseling, care coordination, chart review, [...] choice. Pt made choices as follows. 1st [facility] [place] 2nd [facility] 3rd [facility] and 4th [facility]. [facility] 1730 This TCC followed up with pt that none of the facilities accepted the pt.Pt agreeable for blanket referral to be made to see who can accept pending medicaid number and then pt can choose from those facilities. [facility] referral made. TCC to follow up with discharge planning. Usman Spann PRN, [facility] [phone] [email or web address] Kevan La is a 49 [...] non tender, no organomegaly was appreciated. +BS. 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 No gross focal deficits appreciated. [...] 10/10/24 Blood culture from Peripheral Venipuncture Slackia dhavala S S S S S 10/10/24 Blood [...] anaerobic organisms and blood cultures growing Slackia exmohindera (an obligate anaerobe) and Staph hominis. Given [...] ID Fellow. For new consults, contact pager [phone]. [employer] chat preferred. I saw and evaluated the [...] final ID reccs for abx. Payer: no insurance-[facility] can accept for [place] Medicaid Status: inpatient Discharge disposition: ?SNF-If IV abx and wound needed Potential Barriers: no insurance ADOD: 10/18 2336-[id number] spoke to pt about possible DC plans. Pt states he would be agreeable to go to a SNF that accepts a pending Medicaid # for wound care and if IV abx is needed. [id number]-[id number] requested a pending Medicaid # from [facility]-medical team updated. [facility] ACUTE CARE SURGERY - PROGRESS NOTE Patient [...] Surg Acute Care Surgery Service Team Pager: [phone] CHIEF COMPLAINT / EVENTS LAST 24HRS / [...] on 10/17/2024 Exposure target: AUC24 (range)400-600 mg/L.hr [id number]: 443 mg/L.hr AUC24,ss: 447 mg/L.hr Probability of [...] regimen. This dosing regimen is predicted by CovocativeRx to result in the following pharmacokinetic parameters: Regimen: 750 mg IV every 12 hours. Exposure target: AUC24 (range)400-600 mg/L.hr [id number]: 443 mg/L.hr AUC24,ss: 448 mg/L.hr Probability of [...] resp. rate 18, height 2.007 m (6' 7), weight 101 kg (222 lb), SpO2 98%. [...] rifampin, augmentin and doxycycline. He came to [facility] ED with severe HS and associated [...] Nephropathy - Cr 1.69 on admission - meterman NSAID use for HS, most recently was [...] 40 minutes in professional medical decision making, qhgw-sv-jzco examination and counseling, care coordination, chart review, [...] resp. rate 18, height 2.007 m (6' 7), weight 101 kg (222 lb), SpO2 97%. [...] rifampin, augmentin and doxycycline. He came to [facility] ED with severe HS and associated [...] Nephropathy - Cr 1.69 on admission - prison NSAID use for HS, most recently was [...] 40 minutes in professional medical decision making, nlsu-dp-uuaz examination and counseling, care coordination, chart review, discussions with consultants, and care planning [facility] ACUTE CARE SURGERY - PROGRESS NOTE Patient [...] PGY1 Acute Care Surgery Service Team Pager: [phone] CHIEF COMPLAINT / EVENTS LAST 24HRS / [...] as documented in the note. Terrence Richards, Kevan La is a 49 y.o. male on day 5 of admission presenting with Gluteal abscess. Per [facility], patient has been screened from a previous date of service and accepted for possible [place] Medicaid. We are pending copies of his paystubs and will continue to follow up with him to obtain. [facility] states for TCC to notify them on the day of discharge and they will send a letter to [facility] so pt can receive his medications. Medical team aware. 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 ADL: Eating Assistance: Independent Grooming Assistance: Stand [...] and LUE LUE: Within Functional Limits Outcome Measures:[facility] Daily Activity Putting on and taking off [...] 10:46 AM Connie Thomas OT Rehab Office: [phone] Physical Therapy Physical Therapy Evaluation Patient Name: Kevan HITCHCOCKN: [id number] Department: [facility] 20 Room: 2072[facility] Today's Date: 10/15/2024 Time Calculation Start Time: [...] as evidenced by functional mobility Outcome Measures: [facility] Basic Mobility Turning from your back to [...] at 10:09 AM - Doris Guzman PT [facility] ACUTE CARE SURGERY - PROGRESS NOTE Patient [...] PGY1 Acute Care Surgery Service Team Pager: [phone] CHIEF COMPLAINT / EVENTS LAST 24HRS / [...] resp. rate 18, height 2.007 m (6' 7), weight 101 kg (222 lb), SpO2 96%. [...] rifampin, augmentin and doxycycline. He came to [facility] ED with severe HS and associated [...] Nephropathy - Cr 1.69 on admission - prison NSAID use for HS, most recently was [...] 40 minutes in professional medical decision making, zlqq-ze-noue examination and counseling, care coordination, chart review, [...] resp. rate 18, height 2.007 m (6' 7), weight 101 kg (222 lb), SpO2 97%. [...] rifampin, augmentin and doxycycline. He came to [facility] ED with severe HS and associated [...] 1.69 on admission (1.44 on 09/13/2024) - meterman NSAID use for HS, most recently was [...] on 10/14/2024 Exposure target: AUC24 (range)400-600 mg/L.hr [id number]: 425 mg/L.hr AUC24,ss: 416 mg/L.hr Probability of [...] response, and signs/symptoms of toxicity. Alberto BarclayD [facility] ACUTE CARE SURGERY - PROGRESS NOTE Patient Name: Kevan aL Admit Date: [id number] : 1975 AGE: 49 [...] Maurice Chavis MD PGY-2 Gen Surg ACS [id number] CHIEF COMPLAINT / EVENTS LAST 24HRS / [...] resp. rate 16, height 2.007 m (6' 7), weight 101 kg (222 lb), SpO2 98%. [...] rifampin, augmentin and doxycycline. He came to [facility] ED with severe HS and associated [...] 1.69 on admission (1.48 on 09/12/2024) - prison NSAID use for HS, most recently was [...] were you homeless or living in a correction (including now)? N Transportation Needs In the [...] 10/15 at 1:30pm with Sharron Flaherty at ([phone]) PHARMACY: [facility] [place] [place]: denies EQUIPMENT USED [...] resp. rate 18, height 2.007 m (6' 7), weight 101 kg (222 lb), SpO2 95%. [...] rifampin, augmentin and doxycycline. He came to [facility] ED with severe HS and associated [...] 1.69 on admission (1.48 on 09/12/2024) - meterman NSAID use for HS, most recently was [...] on 10/12/2024 Exposure target: AUC24 (range)400-600 mg/L.hr [id number]: 465 mg/L.hr AUC24,ss: 514 mg/L.hr Probability of [...] and signs/symptoms of toxicity. Arianna Mir PharmD [facility] ACUTE CARE SURGERY - PROGRESS NOTE Patient [...] MN and we will consent in AM. [facility] [id number] CHIEF COMPLAINT / EVENTS LAST 24HRS / [...] [16-20] BP: (84-133)/(53-85) Height: [200.7 cm (6' 7)] Weight: [101 kg (222 lb)] Pulse Ox: [...] rifampin, augmentin and doxycycline. He came to [facility] ED with severe HS and associated [...] 1.69 on admission (1.48 on 09/12/2024) - prison NSAID use for HS, most recently was [...] for Hidradenitis suppurativa. Pharmacy reviewed the patient's imhax-js-yniirtsel medications and allergies for accuracy. Medications ADDED: Ibuprofen Ferrous sulfate Vitamin D3 Medications CHANGED: none Medications REMOVED: none The list below reflects the updated ASSET SPECIALIST list. Prior to Admission Medications Prescriptions Last Dose Informant Study STOP-HS1 [id number] povorcitinib 45mg or 75mg tablet 10/10/2024 Morning [...] Allergies Patient accepts M2B at discharge. Sources: [facility] Pharmacy dispense history Patient interview Moderate historian Chart Review ID note from 09/24 Dermatology note from 09/30 Care Everywhere Additional Comments: Pt states that many pain medications are ineffective would like something prior to being discharge Connie Choi PharmD Transitions of Care Pharmacist 10/11/24 Secure Chat preferred If no response call [employer] or [employer] Kevan La is a 49 y.o. male [...] planning. MIGUEL Sheppard documented in this encounter [facility] Work Phone: 10-21-2024 Hospital Discharge instructions Delilah [...] us take part in your care! - [facility] documented in this encounter [facility] Work Phone: 10-18-2024 Consult note Associated Order [...] on 10/18/2024 Exposure target: AUC24 (range)400-600 mg/L.hr [id number]: 413 mg/L.hr AUC24,ss: 458 mg/L.hr Probability of [...] small molecule checkpoint inhibitor), presented on 09/2021 [facility] with a complaint of fatigue and [...] significant left gluteal pain, increased drainage of yellow-white fluid from the wound on the buttock [...] He was being treated by [facility] Dermatology. Pt reports that he [...] pain (1 - 3). 10/10/2024 Study STOP-HS1 [id number] povorcitinib 45mg or 75mg tablet Take 1 [...] 30 packet 0 Not Taking Study STOP-HS1 [id number] povorcitinib 45mg or 75mg tablet Take 1 tablet by mouth once daily. Preferably in the morning, with a full glass of water. 31 tablet 0 Study STOP-HS1 [id number] povorcitinib 45mg or 75mg tablet Take 1 tablet by mouth once daily. Preferably in the morning, with a full glass of water. 31 tablet 0 Study STOP-HS1 [id number] povorcitinib 45mg or 75mg tablet Take 1 tablet by mouth once daily. Preferably in the morning, with a full glass of water. 62 tablet 0 Study STOP-HS1 [id number] povorcitinib 45mg or 75mg tablet Take 1 tablet by mouth once daily. Preferably in the morning, with a full glass of water. 62 tablet 0 Study STOP-HS1 [id number] povorcitinib 45mg or 75mg tablet Take 1 tablet by mouth once daily. Preferably in the morning, with a full glass of water. 62 tablet 0 Study STOP-HS1 [id number] povorcitinib 45mg or 75mg tablet Take 1 tablet by mouth once daily. Preferably in the morning, with a full glass of water. 62 tablet 0 Study STOP-HS1 [id number] povorcitinib 45mg, 75mg or placebo tablet Take 1 tablet by mouth once daily. Preferably in the morning, with a full glass of water. 31 tablet 0 Study STOP-HS1 [id number] povorcitinib 45mg, 75mg or placebo tablet Take 1 tablet by mouth once daily. Preferably in the morning, with a full glass of water. 31 tablet 0 Study STOP-HS1 [id number] povorcitinib 45mg, 75mg or placebo tablet Take 1 tablet by mouth once daily. Preferably in the morning, with a full glass of water. 31 tablet 0 Study STOP-HS1 [id number] povorcitinib 45mg, 75mg or placebo tablet Take [...] non tender, no organomegaly was appreciated. +BS. 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 No gross focal deficits appreciated. [...] 20 mm/h Final No results found for: HIV1X2, HIVCONF, YWQQFB3AM No results found for: HEPCABINIT, HEPCAB, HCVPCRQUANT Microbiology Susceptibility data from last 90 [...] evidence of osteomyelitis. Micro: 10/10: Blood Cx: Maryia Roxanneugia in anaerobic bottle, Staph hominis in another [...] ID Fellow. For new consults, contact pager [phone]. Face-Me preferred. I spent 45 minutes in the [...] note. Daylin Duran MD (please reach through [employer]) Infectious Diseases, Senior Attending Physician Nutrition Assessment [...] with patient who states his appetite is a little less than normal. Reports consuming 100% of breakfast this morning: potatoes, scrambled eggs with cheese, an Indonesian muffin with butter and jelly and orange juice. States consuming 100% of lunch: grilled cheese, pudding and apple juice. At baseline, eats Lunch and Dinner I try to drink an Ensure for breakfast. Patient states I don't eat vegetables or fruit. Patient amenable to a daily serving of Ensure while admitted. Denies N/V/C/D. Vitamin/Herbal Supplement Use: Reports taking Vitamin D3, MVI and Iron. Food Allergy: (Banana and avocado) Anthropometrics: Height: 200.7 cm (6' 7) Weight: 101 kg (222 lb) BMI (Calculated): 25 IBW/kg (Dietitian Calculated): 100 kg Percent of IBW: 100 % Weight History: Wt Readings from Last 15 Encounters: 10/11/24 101 kg (222 lb) 09/13/24 101 kg (222 lb 3.6 oz) 09/12/24 102 kg (225 lb) Weight Change %: Weight History / % Weight Change: When asked about wt change, patient answered I couldn't tell you. It's not something I keep track of. Denies that his clothes fit looser. States [...] Results from last 7 days Lab Units 10/14/2482910/13/24194210/13/24114710/12/24823 WBC AUTO x10*3/uL 15.0* 24.0* 30.1* 14.6* RBC AUTO x10*6/uL 2.94* 2.92* 3.76* 3.48* HEMOGLOBIN g/dL 8.1* 8.3* 10.5* 9.5* HEMATOCRIT % 26.6* 25.6* 34.1* 30.8* MCV fL 91 88 91 89 PLATELETS AUTO x10*3/uL 561* 579* 755* 633* , BMP Trend: Results from last 7 days Lab Units 10/14/2482910/13/24 11410/12/24 0824 10/11/24 0546 GLUCOSE mg/dL 163* [...] from last 7 days Lab Units 10/14/2482910/13/24114710/12/24 0824 10/10/24 1617 ALK PHOS U/L 60 76 66 79 AST U/L 6* 10 11 9 ALT U/L 9* 9* 8* 14 BILIRUBIN TOTAL mg/dL 0.2 0.4 0.3 0.2 , Renal Lab Trend: Results from last 7 days Lab Units 10/14/2482910/13/24 11410/12/24 0824 10/11/24 0546 POTASSIUM mmol/L 3.9 4.5 4.0 4.1 PHOSPHORUS mg/dL -- -- -- 3.8 SODIUM mmol/L 137 139 136 138 MAGNESIUM mg/dL -- -- -- 2.19 EGFR mL/min/1.73m*2 59* 44* 51* 52* BUN mg/dL 15 19 16 20 CREATININE mg/dL 1.44* 1.84* 1.61* 1.60* , Vit D: No results found for: VITD25 , Vit B12: No results found for: TFHZNJRH33 Nutrition Specific Medications: Scheduled medications acetaminophen, 975 [...] rifampin, augmentin and doxycycline. He came to [facility] ED with severe HS and associated deep seated tissue infection. Wound Assessment: Wound 09/13/24 Other (comment) Buttock Left (Active) Wound Image 10/11/24 144 Site Assessment Yellow;[place];Painful;Denuded;Indur ation;Granulation;Fibrinous;Swell ing 10/11/24 1444 Wound Length (cm) [...] film 10/11/24 144 Dressing Changed New 10/11/24 144 Dressing Status Dry;Clean 10/11/24 144 Wound 10/10/24 [...] for HS. Patient was recently admitted to [facility] 09/13-09/17 for the same complaint. He presented [...] off too quickly. Endorses increased draining of yellow-white fluid from the primary wound on the buttock and has difficulty performing wound care due to the location of the wound. He been washing his wounds with a purple solution daily, applyig clindamycin 1% lotion, and then [...] He was being treated by [facility] Dermatology. Pt reports that he [...] kg (222 lb) Height: 2.007 m (6' 7) Exam GEN: uncomfortable appearing NEURO: moving all [...] Yellow, Dark-Yellow Appearance, Urine Clear Clear Specific [place], Urine 1.037 (N) 1.005 - 1.035 pH, [...] PGY2, Dermatology Epic chat (preferred) Team pager [phone] I saw and evaluated the patient. I [...] Q12H This dosing regimen is predicted by CovocativeRx to result in the following pharmacokinetic parameters: Regimen: 750 mg IV every 12 hours. Start time: 23:41 on 10/10/2024 Exposure target: AUC24 (range)400-600 mg/L.hr [id number]: 316 mg/L.hr AUC24,ss: 465 mg/L.hr Follow-up level tomorrow with AM labs. Will continue to monitor renal function daily while on vancomycin and order serum creatinine at least every 48 hours if not already ordered. Follow for continued vancomycin needs, clinical response, and signs/symptoms of toxicity. Long Swain PharmD Associated Order(s): IP CONSULT TO ACUTE CARE SURGERY [facility] ACUTE CARE SURGERY - HISTORY AND PHYSICAL [...] Dr. Maurice Magana MD PGY-4 General Surgery [facility] [id number] CHIEF COMPLAINT/REASON FOR CONSULT: 49M with PMH [...] 30 minutes after. 09/20/24 10/20/24 Ronna Carpenter APRN-PAYROLL SPECIALIST nicotine polacrilex (Nicorette) 2 mg gum [...] 09/18/24 10/18/24 Lia Prado MD Study STOP-HS1 [id number] povorcitinib 45mg or 75mg tablet Take 1 tablet by mouth once daily. Preferably in the morning, with a full glass of water. 02/29/24 Kimber Last MD Study STOP-HS1 [id number] povorcitinib 45mg or 75mg tablet Take 1 tablet by mouth once daily. Preferably in the morning, with a full glass of water. 04/04/24 Kimber Last MD Study STOP-HS1 [id number] povorcitinib 45mg or 75mg tablet Take 1 tablet by mouth once daily. Preferably in the morning, with a full glass of water. 04/12/24 Kimber Last MD Study STOP-HS1 [id number] povorcitinib 45mg or 75mg tablet Take 1 tablet by mouth once daily. Preferably in the morning, with a full glass of water. 05/27/24 Marlon Christiansen MD Study STOP-HS1 [id number] povorcitinib 45mg or 75mg tablet Take 1 tablet by mouth once daily. Preferably in the morning, with a full glass of water. 07/08/24 Marlon Christiansen MD Study STOP-HS1 [id number] povorcitinib 45mg or 75mg tablet Take 1 tablet by mouth once daily. Preferably in the morning, with a full glass of water. 08/20/24 Marlon Christiansen MD Study STOP-HS1 [id number] povorcitinib 45mg or 75mg tablet Take 1 tablet by mouth once daily. Preferably in the morning, with a full glass of water. 09/30/24 Marlon Christiansen MD Study STOP-HS1 [id number] povorcitinib 45mg, 75mg or placebo tablet Take 1 tablet by mouth once daily. Preferably in the morning, with a full glass of water. 12/11/23 Kimber Last MD Study STOP-HS1 [id number] povorcitinib 45mg, 75mg or placebo tablet Take 1 tablet by mouth once daily. Preferably in the morning, with a full glass of water. 12/29/23 Kimber Last MD Study STOP-HS1 [id number] povorcitinib 45mg, 75mg or placebo tablet Take 1 tablet by mouth once daily. Preferably in the morning, with a full glass of water. 01/16/24 Kimber Last MD Study STOP-HS1 [id number] povorcitinib 45mg, 75mg or placebo tablet Take [...] Terrence Richards DO documented in this encounter [facility] Work Phone: 10-13-2024 History and physical note H&P reviewed. The patient was examined and there are no changes to the H&P. Pt reassessed: plan for I&D today Cosigned by Momo Dougherty MD at 10/13/2024 7:22 PM EST Source Note - Diane Magana MD - 10/10/2024 11:27 PM EST [facility] ACUTE CARE SURGERY - HISTORY AND PHYSICAL [...] Maurice Magana MD PGY-4 General Surgery [facility] [id number] CHIEF COMPLAINT/REASON FOR CONSULT: 49M with PMH [...] least 30 minutes after. 09/20/24 10/20/24 Ronna Carpentre, SUPERVISOR RECORD PRESS-PAYROLL SPECIALIST nicotine polacrilex (Nicorette) 2 mg gum [...] 09/18/24 10/18/24 Lia Prado MD Study STOP-HS1 [id number] povorcitinib 45mg or 75mg tablet Take 1 tablet by mouth once daily. Preferably in the morning, with a full glass of water. 02/29/24 Kimber Last MD Study STOP-HS1 [id number] povorcitinib 45mg or 75mg tablet Take 1 tablet by mouth once daily. Preferably in the morning, with a full glass of water. 04/04/24 Kimber Last MD Study STOP-HS1 [id number] povorcitinib 45mg or 75mg tablet Take 1 tablet by mouth once daily. Preferably in the morning, with a full glass of water. 04/12/24 Kimber Last MD Study STOP-HS1 [id number] povorcitinib 45mg or 75mg tablet Take 1 tablet by mouth once daily. Preferably in the morning, with a full glass of water. 05/27/24 Marlon Christiansen MD Study STOP-HS1 [id number] povorcitinib 45mg or 75mg tablet Take 1 tablet by mouth once daily. Preferably in the morning, with a full glass of water. 07/08/24 Marlon Christiansen MD Study STOP-HS1 [id number] povorcitinib 45mg or 75mg tablet Take 1 tablet by mouth once daily. Preferably in the morning, with a full glass of water. 08/20/24 Marlon Christiansen MD Study STOP-HS1 [id number] povorcitinib 45mg or 75mg tablet Take 1 tablet by mouth once daily. Preferably in the morning, with a full glass of water. 09/30/24 Marlon Christiansen MD Study STOP-HS1 [id number] povorcitinib 45mg, 75mg or placebo tablet Take 1 tablet by mouth once daily. Preferably in the morning, with a full glass of water. 12/11/23 Kimber Last MD Study STOP-HS1 [id number] povorcitinib 45mg, 75mg or placebo tablet Take 1 tablet by mouth once daily. Preferably in the morning, with a full glass of water. 12/29/23 Kimber Last MD Study STOP-HS1 [id number] povorcitinib 45mg, 75mg or placebo tablet Take 1 tablet by mouth once daily. Preferably in the morning, with a full glass of water. 01/16/24 Kimber Last MD Study STOP-HS1 [id number] povorcitinib 45mg, 75mg or placebo tablet Take [...] small molecule JAK1 inhibitor) who presents to [facility] ED with fatigue, weakness, and worsening of L gluteal wound. Patient was recently admitted to [facility] 09/13-09/17 for the same complaint. He presented [...] off too quickly. Endorses increased draining of yellow-white fluid from the primary wound on the [...] least 30 minutes after. 09/20/24 10/20/24 Ronna Carpneter APRN-PAYROLL SPECIALIST nicotine polacrilex (Nicorette) 2 mg gum [...] 09/18/24 10/18/24 Lia Prado MD Study STOP-HS1 [id number] povorcitinib 45mg or 75mg tablet Take 1 tablet by mouth once daily. Preferably in the morning, with a full glass of water. 02/29/24 Kimber Last MD Study STOP-HS1 [id number] povorcitinib 45mg or 75mg tablet Take 1 tablet by mouth once daily. Preferably in the morning, with a full glass of water. 04/04/24 Kimber Last MD Study STOP-HS1 [id number] povorcitinib 45mg or 75mg tablet Take 1 tablet by mouth once daily. Preferably in the morning, with a full glass of water. 04/12/24 Kimber Last MD Study STOP-HS1 [id number] povorcitinib 45mg or 75mg tablet Take 1 tablet by mouth once daily. Preferably in the morning, with a full glass of water. 05/27/24 Marlon Christiansen MD Study STOP-HS1 [id number] povorcitinib 45mg or 75mg tablet Take 1 tablet by mouth once daily. Preferably in the morning, with a full glass of water. 07/08/24 Marlon Christiansen MD Study STOP-HS1 [id number] povorcitinib 45mg or 75mg tablet Take 1 tablet by mouth once daily. Preferably in the morning, with a full glass of water. 08/20/24 Marlon Christiansen MD Study STOP-HS1 [id number] povorcitinib 45mg or 75mg tablet Take 1 tablet by mouth once daily. Preferably in the morning, with a full glass of water. 09/30/24 Marlon Christiansen MD Study STOP-HS1 [id number] povorcitinib 45mg, 75mg or placebo tablet Take 1 tablet by mouth once daily. Preferably in the morning, with a full glass of water. 12/11/23 Kimber Last MD Study STOP-HS1 [id number] povorcitinib 45mg, 75mg or placebo tablet Take 1 tablet by mouth once daily. Preferably in the morning, with a full glass of water. 12/29/23 Kimber Last MD Study STOP-HS1 [id number] povorcitinib 45mg, 75mg or placebo tablet Take 1 tablet by mouth once daily. Preferably in the morning, with a full glass of water. 01/16/24 Kimber Last MD Study STOP-HS1 [id number] povorcitinib 45mg, 75mg or placebo tablet Take [...] 10/10/2024 Interpreted By: Beronica Valentin and [facility] STUDY: CT of pelvis with out contrast INDICATION: Signs/Symptoms:Left gluteal abscess COMPARISON: None. ACCESSION NUMBER(S): [id number] ORDERING CLINICIAN: MACK GRADY TECHNIQUE: Axial CT [...] as stated. This study was interpreted at [place], [place] Signed by: Beronica Valentin 10/10/2024 11:03 PM Dictation workstation: [id number] XR chest 1 view Result Date: 10/10/2024 Interpreted By: Perry Baires, STUDY: XR CHEST 1 VIEW INDICATION: Signs/Symptoms:cough. COMPARISON: September 13, 2024 ACCESSION NUMBER(S): [id number] ORDERING CLINICIAN: KISHORE GUTIERREZ FINDINGS: Previous band [...] Perry Baires 10/10/2024 5:20 PM Dictation workstation: [id number] Assessment and Plan: Kevan La is a [...] in the note. documented in this encounter [facility] Work Phone: 10-10-2024 Emergency department Note Images [...] has noted significant pain of the left [place] where his previous hidradenitis suppurativa was. He [...] Perry Baires 10/10/2024 5:20 PM Dictation workstation: [id number] MDM: Patient is a 49-year-old male with [...] condition. Mack Grady MD Emergency Medicine PGY-3 [facility] Comment: Please note this report has been produced using speech recognition software and may contain errors related to that system including errors in grammar, punctuation, and spelling as well as words and phrases that may be inappropriate. If there are any questions or concerns please feel free to contact the dictating provider for clarification. Procedures ? [employer] last updated 10/10/2024 8:50 PM Mack Grady MD Resident 10/12/24 1527 -- This patient was seen by the resident physician. I have seen and examined the patient, agree with the workup, evaluation, management and diagnosis. The care plan has been discussed and I concur. My assessment reveals the following: HPI: Patient is a 49 y/o male with hidradenitis suppurativa, most treatment in [facility] where he used to live, has lived in [place] [facility] for past 2 years, presenting with [...] Color, Urine Light-Yellow Appearance, Urine Clear Specific Hatch, Urine 1.037 (*) pH, Urine 7.0 Protein, [...] Abnormality Status --------- ------ Urinalysis with Reflex C...[[id number]] Abnormal Final result Extra Urine Rhodes Tube[[id number]] Final result Please view results for these [...] as stated. This study was interpreted at [facility], [place], [place] Signed by: Beronica Valentin 10/10/2024 11:03 PM Dictation workstation: [id number] XR chest 1 view Final Result Previous band of right basilar airspace disease has nearly completely resolved with only a tiny amount of residual. No new consolidation or edema. Signed by: Perry Baires 10/10/2024 5:20 PM Dictation workstation: [id number] Consult to Interventional Radiology (Results Pending) Medical [...] be infected again. documented in this encounter [facility] Work Phone: 09-30-2024 History of Present illness Narrative Patient seen for Week 42 of STOP HS-301 trial by Marlon Christiansen MD Noted that patient was admitted to the hospital since previous visit. Con meds and additional details of the serious adverse event placed in physical notes. Please see physical copy of notes located in subject binder for additional information. documented in this encounter [facility] Work Phone: 09-24-2024 History of Present illness [...] of the labs documented in this encounter [facility] Work Phone: 09-17-2024 Nurse Note Discharge Note: VN went over AVS with Pt. Pt agreed and understood instructions. Pt is aware of follow up appts and blood work. Floor nurse removed IV and intact. Pt has all belongings at the bedside. Pt is awaiting Meds to Beds medication before discharge. [facility] 09-17-2024 Nurse Note Discharge Note: VN went [...] dressing is given. Pt was transferred from [facility] in [place] for this admission. Pt stated his car is at [facility] and he has no means to get there. Pt does not have insurance to set up transport. Pt doesn't have any means of transportation to get to his car at [facility], so the floor is providing LYFT pickup. Pt meds to beds is delivered. Pt is waiting for transport to leave the floor. documented in this encounter [facility] Work Phone: 09-17-2024 Nurse Note Pt is ready for discharge. Discharge paper is given, discharge instruction is given. All questions are answered at this time. Pt PIV is removed, wound dressing changed and education on how to clean and change wound dressing is given. Pt was transferred from [facility] in [place] for this admission. Pt stated his car is at [facility] and he has no means to get there. Pt does not have insurance to set up transport. Pt doesn't have any means of transportation to get to his car at [facility], so the floor is providing LYFT pickup. Pt meds to beds is delivered. Pt is waiting for transport to leave the floor. [facility] 09-17-2024 History of Present illness Narrative DIRECTOR TRANSPORTATION met with patient at bedside to address questions. Patient expressed interest on if he would be approved for disability. DIRECTOR TRANSPORTATION encouraged patient to call or go online to initiate the application process. Patient had disability resources at bedside. DIRECTOR TRANSPORTATION notified patient that the resources explains how and where to submit application and explains what we be needed and what to expect throughout the process. Patient verbalized understanding and thanked SW. PT recommends no needs. DIRECTOR TRANSPORTATION will sign off. SOPHIA Ardon 09/17/24 1213 [...] were you homeless or living in a correction (including now)? N Transportation Needs In the past 12 months, has lack of transportation kept you from medical appointments or from getting medications? no In the past 12 months, has lack of transportation kept you from meetings, work, or from getting things needed for daily living? No TCC ASSESSMENT: Met with pt and introduced myself as career transition specialist and member of the Care Transitions team for discharge planning. Pt stated he lives at home alone. He is independent with ADL's/iADL's, walks without use of an assistive device, and drives. Pt stated all of [place] and his fiance from [place] in 10/2023 so he has no family/friend support at home. Pt stated he lost his job back in 06/2024 which resulted with termination of his [employer] medical insurance policy. Pt denies any falls. Pt stated he feels safe at home. Pt's address, phone number, and emergency contact information was verified. SW was consulted on 09/16 for financial concerns (assistance with disability, lack of insurance). Home care: none. DME: Pt stated the previous home salesman/owner was convalescent so bathroom is equipped with grab bars on the shower and wall. branch services manager: none. PCP: Pt does not have a PCP and hasn't been seen by one in about 3-[address] [facility]: Pt drives himself. Pharmacy: [facility]. Pt stated she only prescriptions he takes at home are STOP-HS 301 which is part of clinical free trial from Dermatology. Discharge Planning: Pt presenting from [facility] for new wound infection 2/2 hidradenitis suppurativa. Per medical team plan for discharge home today on oral Augmentin and PCP/Dermatology follow up appointments. Per HRS they accepted pt for [place] Medicaid and will fax auth letter to [facility] for release of his prescriptions. Pt stated he will perform his own wound to L buttock with instructions from nursing. Nursing updated and asked to perform wound care teaching + send pt home with wound care supplies as he will not be able to receive home health care until [place] Medicaid finalized. Pt voiced no additional questions or concerns regarding discharge planning. family resource coordinator will continue to follow for discharge planning needs. Lorenza Morales RN Transitional Jacquard Fixer (TCC) [phone] or [phone] eKvan La is a 49 y.o. male [...] inhibitor) presenting with new wound infection from [facility] ED.Being treated currently with Vancomycin, Zosyn, and [...] Therapy Evaluation Patient Name: Kevan La Department: [place] [address] Room: [facility]5070-A Today's Date: 09/16/2024 Time Calculation Start Time: [...] Prior Function Per Pt/Caregiver Report Level of [place]: Independent with ADLs and functional transfers ADL [...] Antalgic Comments/Distance (ft) 1: 100ft Outcome Measures: [facility] Basic Mobility Turning from your back to [...] Verbalizes Understanding Education Comments No comments found. [facility] reports patient is not insured and expressed interest in disability. [facility] was notified and [facility] confirmed patient is on their list to see today. DIRECTOR TRANSPORTATION attempted to provide patient with disability resources [...] INDICATION: Signs/Symptoms:New fever. COMPARISON: None. ACCESSION NUMBER(S): [id number] ORDERING CLINICIAN: BALDOMERO SALDANAES FINDINGS: 2 AP [...] Miah Alves 09/14/2024 8:38 AM Dictation workstation: [id number] Physical Exam Constitutional: Appearance: Normal appearance. HENT: [...] inhibitor) presenting with new wound infection from [facility] ED.Being treated currently with Vancomycin, Zosyn, and [...] Weight: 101 kg (222 lb 3.6 oz) (09/13/242140) Daily Weight 09/13/24 : 101 kg (222 lb 3.6 oz) Image Results XR chest 1 view Narrative: Interpreted By: Miah Alves, STUDY: XR CHEST 1 VIEW; 09/13/2024 10:22 pm INDICATION: Signs/Symptoms:New fever. COMPARISON: None. ACCESSION NUMBER(S): [id number] ORDERING CLINICIAN: BALDOMERO POWELL FINDINGS: 2 AP [...] Miah Alves 09/14/2024 8:38 AM Dictation workstation: [id number] Physical Exam PHYSICAL EXAM: General: awake, alert, [...] INDICATION: Signs/Symptoms:New fever. COMPARISON: None. ACCESSION NUMBER(S): [id number] ORDERING CLINICIAN: BALDOMERO POWELL FINDINGS: 2 AP [...] Miah Alves 09/14/2024 8:38 AM Dictation workstation: [id number] Assessment/Plan Kevan La is a 49 y.o. male presenting with PMH of severe hidradenitis supprativa (on STOP HS-301 trial (povorcitinib), small molecule JAK1 inhibitor) presenting with new wound infection from [facility] ED. 09/15/24 Update - updated pain regimen: [...] Weight: 101 kg (222 lb 3.6 oz) (09/13/241) Daily Weight 09/13/24 : 101 kg (222 lb 3.6 oz) Image Results XR chest 1 view Narrative: Interpreted By: Miah Alves, STUDY: XR CHEST 1 VIEW; 09/13/2024 10:22 pm INDICATION: Signs/Symptoms:New fever. COMPARISON: None. ACCESSION NUMBER(S): [id number] ORDERING CLINICIAN: BALDOMERO POWELL FINDINGS: 2 AP [...] Miah Alves 09/14/2024 8:38 AM Dictation workstation: [id number] Physical Exam PHYSICAL EXAM: General: awake, alert, [...] Yellow, Dark-Yellow Appearance, Urine Clear Clear Specific Hatch, Urine 1.014 1.005 - 1.035 pH, Urine [...] 1 view Result Date: 09/14/2024 Interpreted By: iMah Alves, STUDY: XR CHEST 1 VIEW; 09/13/2024 10:22 pm INDICATION: Signs/Symptoms:New fever. COMPARISON: None. ACCESSION NUMBER(S): [id number] ORDERING CLINICIAN: BALDOMERO POWELL FINDINGS: 2 AP [...] Miah Alves 09/14/2024 8:38 AM Dictation workstation: [id number] CT abdomen pelvis w IV contrast Result Date: 09/12/2024 [facility] 1975 [id number] Exam Date/Time: 09/12/2024 21:13 Procedure: CT ABDOMEN [...] 09/12/2024 Patient Name: [facility]AN LA [facility] 1975 [id number] Exam Date/Time: 09/12/2024 20:17 Procedure: XR CHEST [...] inhibitor) presenting with new wound infection from [facility] ED. #hidradenitis supprativa ::purulent drainage ::Leukocytosis (13.1) [...] Karissa Venegas, PharmD documented in this encounter [facility] Work Phone: 09-17-2024 Hospital Discharge instructions Lia [...] Your Care team documented in this encounter [facility] Work Phone: 09-16-2024 Miscellaneous Notes Problem: Pain [...] inhibitor) presenting with new wound infection from [facility]. He has a long-standing history of HS [...] last Monday, morning, and the day after [place]. Drainage from his buttock has been progressively [...] the trial drug. 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 He used to live in [facility]. Denies any sick contacts. He also reports worsening left leg weakness since May (he used to walk with a limp, now has to shuffle). He has both a dry cough that sometimes culminates in post-tussive emesis. On 09/12, he came in with a draining left thigh wound, dry cough and shortness of breath to the [facility] ED. He had some post-tussive emesis. He came in with a fever to 100.4 , tachycardia to 102. He was started on Vanc/Zosyn, got 2 L of NS, and got toradol and morphine for pain. No real culture data history for infections except for rare gram positive cocci in 2015. On 09/13, on arrival at [facility], denies any pain, but has an intermittent [...] The clinical goals for the shift include sally rene remaini safe and free rom falls during shift documented in this encounter [facility] Work Phone: 09-16-2024 Plan of care note [...] complained of pain and was medicated per [facility] order and before left buttock dressing change. Patient tolerated dressing change with no issues. IV antibiotics administered. PT evaluated pt. Patient to be discharged 09/17/24. VSS, call light within reach, safety maintained. Zuleyma Sanchez RN [facility] 09-16-2024 Consult note Associated Order (s): IP [...] Problems: None Anthropometrics: Height: 200.7 cm (6' 7.02) Weight: 101 kg (222 lb 3.6 oz) [...] Estimated Needs: Total Energy Estimated Needs (kCal): (1087-8854 kcal) Method for Estimating Needs: MSJ 2017 [...] Wound healing Time Spent (min): 40 minutes [facility] 09-16-2024 Consult note Associated Order (s): IP [...] Problems: None Anthropometrics: Height: 200.7 cm (6' 7.02) Weight: 101 kg (222 lb 3.6 oz) [...] Estimated Needs: Total Energy Estimated Needs (kCal): (9787-2143 kcal) Method for Estimating Needs: MSJ 2017 [...] left buttock wound with AMD packing strip (ALLOY WEIGHER #[id number] or [id number]) Cover the surrounding abscess wounds with 2 sheets of Aquacel Ag (ALLOY WEIGHER#[id number]) Cover the wounds with multiple ABD pads Xiomara Palmer RN CW 09/14/2024 1:14 PM Associated Order(s): IP CONSULT TO ACUTE CARE SURGERY [facility] ACUTE CARE SURGERY - CONSULT Patient Name: [...] any questions Seen with Dr. Dequan Petty [facility] [address] CHIEF COMPLAINT/REASON FOR CONSULT: Patient has an [...] for evaluation and then was transferred to [facility] for more definitive management. Since admission here [...] End Date Taking? Authorizing Provider Study STOP-HS1 [id number] povorcitinib 45mg or 75mg tablet Take 1 tablet by mouth once daily. Preferably in the morning, with a full glass of water. 02/29/24 Kimber Last MD Study STOP-HS1 [id number] povorcitinib 45mg or 75mg tablet Take 1 tablet by mouth once daily. Preferably in the morning, with a full glass of water. 04/04/24 Kimber Last MD Study STOP-HS1 [id number] povorcitinib 45mg or 75mg tablet Take 1 tablet by mouth once daily. Preferably in the morning, with a full glass of water. 04/12/24 Kimber Last MD Study STOP-HS1 [id number] povorcitinib 45mg or 75mg tablet Take 1 tablet by mouth once daily. Preferably in the morning, with a full glass of water. 05/27/24 Marlon Christiansen MD Study STOP-HS1 [id number] povorcitinib 45mg or 75mg tablet Take 1 tablet by mouth once daily. Preferably in the morning, with a full glass of water. 07/08/24 Marlon Christiansen MD Study STOP-HS1 [id number] povorcitinib 45mg or 75mg tablet Take 1 tablet by mouth once daily. Preferably in the morning, with a full glass of water. 08/20/24 Marlon Christiansen MD Study STOP-HS1 [id number] povorcitinib 45mg, 75mg or placebo tablet Take 1 tablet by mouth once daily. Preferably in the morning, with a full glass of water. 12/11/23 Kimber Last MD Study STOP-HS1 [id number] povorcitinib 45mg, 75mg or placebo tablet Take 1 tablet by mouth once daily. Preferably in the morning, with a full glass of water. 12/29/23 Kimber Last MD Study STOP-HS1 [id number] povorcitinib 45mg, 75mg or placebo tablet Take 1 tablet by mouth once daily. Preferably in the morning, with a full glass of water. 01/16/24 Kimber Last MD Study STOP-HS1 [id number] povorcitinib 45mg, 75mg or placebo tablet Take 1 tablet by mouth once daily. Preferably in the morning, with a full glass of water. 02/09/24 Kimber Last MD ALLERGIES: No Known Allergies REVIEW OF SYSTEMS: Review of Systems as per HPI, otherwise negative PHYSICAL EXAM: Physical Exam BP 107/59 Pulse 72 Temp 36.6 C (97.9 F) Resp 18 Ht 2.007 m (6' 7.02) Wt 101 kg (222 lb 3.6 oz) [...] consultation: hidradenitis suppurativa History of Present Illness Keavn La is a 49 y.o. male [...] He was being treated by [facility] Derm[facility]ology. Pt reports that he has been on multiple therapies and was not able to list all the medications he has previously tried. He did recognize the names of the above medications. 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 Notes increased fatigue. Denies any fevers, [...] back on smoking. 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 Hospital Course - 09/12 he came in with a draining left thigh wound, dry cough, and shortness of breath to [facility] ED - Vitals: T 100.4, HR [...] toradol/morphine for pain - 09/13 transferred to [facility] - Labs: WBC 13.4, Hgb 7.8, [...] lb 3.6 oz) Height: 2.007 m (6' 7.02) Exam GEN: no acute distress NEURO: moving [...] Yellow, Dark-Yellow Appearance, Urine Clear Clear Specific Hatch, Urine 1.014 1.005 - 1.035 pH, Urine [...] and one with Ronna Carpenter at our [place] location. We will arrange outpatient follow-up The patient was seen and discussed with attending physician Dr. Adhikari. The assessment and plan was communicated to the care team. Thank you for the consultation and for the opportunity to contribute to the care of this patient. Danna Alves MD PGY2, Dermatology Epic chat (preferred) Team pager [phone] Jennifer Pena, Randi beal, P.Y., Hu Eubanks, Mónica Oakley, Latrell Ware, Latrell [...] Trudi Luna PharmD documented in this encounter [facility] Work Phone: 09-15-2024 Plan of care note [...] within reach, safety maintained. Zuleyma Sanchez RN [facility] Work Phone: 09-15-2024 Hospital Note Formatting of t his note might be different from the original. Kevan La is a 49 y.o. male presenting with PMH of severe hidradenitis supprativa (disease on left buttock and gluteal fold) on STOP HS-301 trial (povorcitinib, small molecule JAK1 inhibitor) presenting with new wound infection from [facility] ED. He has a long-standing history of [...] the trial drug. 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 He used to live in [facility]. Denies any sick contacts. He also reports worsening left leg weakness since May (he used to walk with a limp, now has to shuffle). He has both a dry cough that sometimes culminates in post-tussive emesis. On 09/12, he came in with a draining left thigh wound, dry cough and shortness of breath to the [facility] ED. He had some post-tussive emesis. He came in with a fever to 100.4 , tachycardia to 102. He was started on Vanc/Zosyn, got 2 L of NS, and got toradol and morphine for pain. No real culture data history for infections except for rare gram positive cocci in 2016. On 09/13, on arrival at [facility], denies any pain, but has an intermittent [...] as pt expressed interest in quitting smoking. [facility] Work Phone: 09-14-2024 Plan of care note The patient's goals for the shift include The clinical goals for the shift include patien twill remaini safe and free rom falls during shift [facility] 09-14-2024 Consult note Associated Order (s): [...] left buttock wound with AMD packing strip (ALLOY WEIGHER #[id number] or [id number]) Cover the surrounding abscess wounds with 2 sheets of Aquacel Ag (ALLOY WEIGHER#701696) Cover the wounds with multiple ABD pads Xiomara Palmer RN [facility] 09/14/2024 1:14 PM [facility] 09-14-2024 Consult note Associated Order (s): IP CONSULT TO ACUTE CARE SURGERY [facility] ACUTE CARE SURGERY - CONSULT Patient Name: [...] any questions Seen with Dr. Dequan Petty [facility] [address] CHIEF COMPLAINT/REASON FOR CONSULT: Patient has an [...] for evaluation and then was transferred to [facility] for more definitive management. Since admission here [...] End Date Taking? Authorizing Provider Study STOP-HS1 [id number] povorcitinib 45mg or 75mg tablet Take 1 tablet by mouth once daily. Preferably in the morning, with a full glass of water. 02/29/24 Kimber Last MD Study STOP-HS1 [id number] povorcitinib 45mg or 75mg tablet Take 1 tablet by mouth once daily. Preferably in the morning, with a full glass of water. 04/04/24 Kimber Last MD Study STOP-HS1 [id number] povorcitinib 45mg or 75mg tablet Take 1 tablet by mouth once daily. Preferably in the morning, with a full glass of water. 04/12/24 Kimber Last MD Study STOP-HS1 [id number] povorcitinib 45mg or 75mg tablet Take 1 tablet by mouth once daily. Preferably in the morning, with a full glass of water. 05/27/24 Marlon Christiansen MD Study STOP-HS1 [id number] povorcitinib 45mg or 75mg tablet Take 1 tablet by mouth once daily. Preferably in the morning, with a full glass of water. 07/08/24 Marlon Christiansen MD Study STOP-HS1 [id number] povorcitinib 45mg or 75mg tablet Take 1 tablet by mouth once daily. Preferably in the morning, with a full glass of water. 08/20/24 Marlon Christiansen MD Study STOP-HS1 [id number] povorcitinib 45mg, 75mg or placebo tablet Take 1 tablet by mouth once daily. Preferably in the morning, with a full glass of water. 12/11/23 Kimber Last MD Study STOP-HS1 [id number] povorcitinib 45mg, 75mg or placebo tablet Take 1 tablet by mouth once daily. Preferably in the morning, with a full glass of water. 12/29/23 Kimber Last MD Study STOP-HS1 [id number] povorcitinib 45mg, 75mg or placebo tablet Take 1 tablet by mouth once daily. Preferably in the morning, with a full glass of water. 01/16/24 Kimber Last MD Study STOP-HS1 [id number] povorcitinib 45mg, 75mg or placebo tablet Take 1 tablet by mouth once daily. Preferably in the morning, with a full glass of water. 02/09/24 Kimber Last MD ALLERGIES: No Known Allergies REVIEW OF SYSTEMS: Review of Systems as per HPI, otherwise negative PHYSICAL EXAM: Physical Exam BP 107/59 Pulse 72 Temp 36.6 C (97.9 F) Resp 18 Ht 2.007 m (6' 7.02) Wt 101 kg (222 lb 3.6 oz) [...] Prasanth Baires MD Attending Acute Care Surgery [facility] Work Phone: 09-14-2024 Consult note Associated Order [...] He was being treated by [facility] Dermatology. Pt reports that he has been on multiple therapies and was not able to list all the medications he has previously tried. He did recognize the names of the above medications. 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 Notes increased fatigue. Denies any fevers, [...] back on smoking. 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 Hospital Course - 09/12 he came in with a draining left thigh wound, dry cough, and shortness of breath to [facility] ED - Vitals: T 100.4, HR [...] toradol/morphine for pain - 09/13 transferred to [facility] - Labs: WBC 13.4, Hgb 7.8, [...] lb 3.6 oz) Height: 2.007 m (6' 7.02) Exam GEN: no acute distress NEURO: moving [...] Yellow, Dark-Yellow Appearance, Urine Clear Clear Specific Hatch, Urine 1.014 1.005 - 1.035 pH, Urine [...] and one with Ronna Carpenter at our [place] location. We will arrange outpatient follow-up The patient was seen and discussed with attending physician Dr. Adhikari. The assessment and plan was communicated to the care team. Thank you for the consultation and for the opportunity to contribute to the care of this patient. Danna Alves MD PGY2, Dermatology Epic chat (preferred) Team pager [phone] Jennifer Pena, Randi beal, P.Y., Mert Eubanks., Mónica Oakley, Amaris Ware., Amaris Mayen., José Miguel, T.Cheryl., Cheyanne, T.R., Yue Cummings., Yue Roland. and [...] decision making as documented in the note. [facility] Work Phone: 09-14-2024 Consult note Associated Order [...] and signs/symptoms of toxicity. Trudi Luna PharmD [facility] Work Phone: 09-13-2024 Emergency department Note Pt leaving [facility] ED at this time to go to . Belongings with EMS. [facility] 09-13-2024 Emergency department Note Pt leaving [facility] ED at this time to go to . Belongings with EMS. Report called to RN. RN informed vancomycin was stopped for transport. [facility] ETA 8pm transfer line called - pt will go to [facility]- 5016 bed A. Number for report [phone] [facility] Research Nurse called back. Per the Research Physician, the patient does not have to be transferred to [facility]. All that needs to be done is a Biologic Medication needs prescribed, and the patient can be admitted here. The patient is in an outpatient study. If any further questions, we can contact AMAN Hancock @ [phone]. Patient is in a study at hospital. He has provided a card for his physician and nurse in the study. I contacted the nurse Karissa and left a message @ [phone]. Patient is on the waiting list for and as of 0800 today there are still no rooms available at for this patient. Karissa called back and will contact her MD's over her and will get back with me. [facility] ED EMERGENCY DEPARTMENT ENCOUNTER Pt [...] Procedure Abnormality Status --------- ------ Culture, Aerobic Bacteri...[[id number]] In process Anaerobic culture[[id number]] In process Please view results for these [...] left thigh. No focal drainable fluid collection. I consulted general surgery. As below agreed [...] with a treatment for HS (Study STOP-HS1 [id number] povorcitinib 45mg or 75mg tablet) [RADHA] 2206 I discussed with general surgery Dr. Marcus who agreed with antibiotics and admission and will likely need surgery at some point. Recommended admitting where the patient is currently on trial. [RADHA] 9 About 5 minutes ago I discussed over the phone with Dr. Quintero from [facility] who accepted the admission. [RADHA] ED Course User Index [RADHA] Xiomara Kauffman MD Diagnoses as of 09/12/24 2341 Buttock wound, left, initial encounter Sepsis, due to unspecified organism, unspecified whether acute organ dysfunction present (HCC) Hidradenitis suppurativa PROCEDURES: Unless otherwise noted below, none Procedures Patients symptoms are consistent with sepsis, severe sepsis, or septic shock (If yes use .sepsiscoremeasure): CORE MEASURE DATA SIRS Criteria Sepsis Criteria [...] Xiomara Kauffman MD JUAN Emergency Medicine Physician Acute [facility] Xiomara Kauffman MD 09/12/24 2341 documented in this encounter [facility] 09-13-2024 Emergency department Note Report called to RN. RN informed vancomycin was stopped for transport. [facility] 09-13-2024 History and physical note Images from the original note were not included. History Of Present Illness Kevan La is a 49 y.o. male presenting with PMH of severe hidradenitis supprativa (disease on left buttock and gluteal fold) on STOP HS-301 trial (povorcitinib, small molecule JAK1 inhibitor) presenting with new wound infection from [facility] ED. He has a long-standing history of [...] last Monday, morning, and the day after [place]. Drainage from his buttock has been progressively [...] the trial drug. 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 He used to live in [facility]. Denies any sick contacts. He also reports worsening left leg weakness since May (he used to walk with a limp, now has to shuffle). He has both a dry cough that sometimes culminates in post-tussive emesis. On 09/12, he came in with a draining left thigh wound, dry cough and shortness of breath to the [facility] ED. He had some post-tussive emesis. [...] Seminars and Arthritis and Rheumatism). Here at [facility], denies any pain, but has an intermittent dry cough. His wound is draining large amounts of yellow/lieberman fluid. 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 #New wound infection with purulent drainage [...] Q6H -Fungitell, galactomannan, histoplasma, cryptococcal antigen -[facility] AM for any other [...] decision making as documented in the note. [facility] Work Phone: 09-13-2024 History and physical note Images from the original note were not included. History Of Present Illness Kevan La is a 49 y.o. male presenting with PMH of severe hidradenitis supprativa (disease on left buttock and gluteal fold) on STOP HS-301 trial (povorcitinib, small molecule JAK1 inhibitor) presenting with new wound infection from [facility] ED. He has a long-standing history of [...] the trial drug. 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 He used to live in [facility]. Denies any sick contacts. He also reports worsening left leg weakness since May (he used to walk with a limp, now has to shuffle). He has both a dry cough that sometimes culminates in post-tussive emesis. On 09/12, he came in with a draining left thigh wound, dry cough and shortness of breath to the [facility] ED. He had some post-tussive emesis. [...] Seminars and Arthritis and Rheumatism). Here at [facility], denies any pain, but has an intermittent dry cough. His wound is draining large amounts of yellow/lieberman fluid. 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 #New wound infection with purulent drainage [...] in the note. documented in this encounter [facility] Work Phone: 09-13-2024 Emergency department Note [facility] ETA 8pm [facility] 09-13-2024 Emergency department Note transfer line called - pt will go to [facility]- 5016 bed A. Number for report [phone] [facility] 09-13-2024 Consult note Formatting of th is [...] creatinine, and vancomycin levels interfaced automatically to [employer] and data has been analyzed and interpreted. [...] RPh Clinical Pharmacist Available via Secure Chat [facility] [employer] 09-13-2024 Consult note Formatting of th is [...] creatinine, and vancomycin levels interfaced automatically to [employer] and data has been analyzed and interpreted. [...] DATE: 09/13/24 TIME: 11:05 AM Melva Mcdonald [facility] Clinical Pharmacist Available via Secure Chat documented in this encounter [facility] 09-13-2024 Emergency department Note [facility] Research Nurse called back. Per the Research Physician, the patient does not have to be transferred to [facility]. All that needs to be done is a Biologic Medication needs prescribed, and the patient can be admitted here. The patient is in an outpatient study. If any further questions, we can contact AMAN Hancock @ [phone]. [facility] 09-13-2024 Emergency department Note Patient is in a study at [facility]. He has provided a card for his physician and nurse in the study. I contacted the nurse Karissa and left a message @ [phone]. Patient is on the waiting list for and as of 0800 today there are still no rooms available at for this patient. Karissa called back and will contact her MD's over her and will get back with me. [facility] 09-12-2024 Physician Emergency department Note [facility] ED EMERGENCY DEPARTMENT ENCOUNTER Pt [...] Procedure Abnormality Status --------- ------ Culture, Aerobic Bacteri...[[id number]] In process Anaerobic culture[[id number]] In process Please view results for these [...] IVPB Mini-Bag Plus (0 mg IntraVENous Stopped 12/2231) sodium chloride 0.9 % bolus 1,000 mL [...] left thigh. No focal drainable fluid collection. I consulted general surgery. As below agreed with antibiotics. Recommended admission at given that is where his clinical trial is. As below, [facility] I discussed test results and plan [...] with a treatment for HS (Study STOP-HS1 [id number] povorcitinib 45mg or 75mg tablet) [RADHA] 2206 I discussed with general surgery Dr. Marcus who agreed with antibiotics and admission and will likely need surgery at some point. Recommended admitting where the patient is currently on trial. [RADHA] 2308 About 5 minutes ago I discussed over the phone with Dr. Quintero from [facility] who accepted the admission. [RADHA] ED Course User Index [RADHA] Xiomara Kauffman MD Diagnoses as of 09/12/24 234 Buttock wound, left, initial encounter Sepsis, due to unspecified organism, unspecified whether acute organ dysfunction present (HCC) Hidradenitis suppurativa PROCEDURES: Unless otherwise noted below, none Procedures Patients symptoms are consistent with sepsis, severe sepsis, or septic shock (If yes use .sepsiscoremeasure): SEP- CORE MEASURE DATA SIRS Criteria Sepsis [...] Xiomara Kauffman MD JUAN Emergency Medicine Physician [facility] Xiomara Kauffman MD 09/12/24 8815 [facility] 08-20-2024 History of Present illness Narrative Patient seen for Week 36 of STOP HS-301 trial by Marlon Christiansen MD No serious adverse events or major changes in concomitant medications noted. Please see physical copy of notes located in subject binder for additional information. documented in this encounter [facility] Work Phone: 04-04-2024 History of Present illness Narrative Patient seen for Unscheduled Visit of STOP HS-301 trial by Kimber Last MD No serious adverse events or major changes in concomitant medications noted. Please see physical copy of notes located in subject binder for additional information. documented in this encounter [facility] Work Phone: Evaluation note Diagnosis Hidradenitis suppurativa- Primary Hidradenitis [facility] Clinical trial participant- Primary Clinical trial participant documented in this encounter [facility] Work Phone: Evaluation note* Diagnosis Clinical trial participant documented in this encounter [facility] Work Phone: Evaluation note* Diagnosis Clinical trial participant documented in this encounter [facility] Work Phone: Evaluation note* Diagnosis Clinical trial participant- Primary documented in this encounter [facility] Work Phone: Evaluation note* Diagnosis Clinical trial participant- Primary documented in this encounter [facility] Work Phone: Evaluation note* Diagnosis Clinical trial participant- Primary documented in this encounter [facility] Work Phone: Evaluation note* Diagnosis Clinical trial participant- Primary documented in this encounter [facility] Work Phone: [phone] note* Diagnosis Clinical trial participant- Primary documented in this encounter [facility] Work Phone: [phone] note* Diagnosis Clinical trial participant documented in this encounter [facility] Work Phone: [phone] note* Diagnosis Clinical trial participant- Primary documented in this encounter [facility] Work Phone: [phone] note* Diagnosis Clinical trial participant- Primary documented in this encounter [facility] Work Phone: Evaluation note* Diagnosis Buttock wound, left, initial encounter- Primary Sepsis, due to unspecified organism, unspecified whether acute organ dysfunction present (HCC) Hidradenitis suppurativa Hidradenitis [facility] Wound infection- Primary Posttraumatic wound infection not elsewhere classified Wound infection Posttraumatic wound infection not elsewhere classified Nausea Nausea alone Constipation, unspecified constipation type Viral infection Smoking Tobacco use disorder Hidradenitis suppurativa Hidradenitis documented in this encounter [facility] Work Phone: [phone] note* Diagnosis Wound infection- Primary Posttraumatic wound infection not elsewhere classified Wound infection Posttraumatic wound infection not elsewhere classified Nausea Nausea alone Constipation, unspecified constipation type Viral infection Smoking Tobacco use disorder Hidradenitis suppurativa Hidradenitis documented in this encounter [facility] Work Phone: [phone] note* Diagnosis Counseling on health promotion and disease prevention- Primary Other specified counseling Hidradenitis suppurativa Hidradenitis documented in this encounter [facility] Work Phone: [phone] note* Diagnosis Clinical trial participant- Primary documented in this encounter [facility] Work Phone: Evaluation note* Diagnosis Gluteal abscess- [...] due to Staphylococcus documented in this encounter [facility] Work Phone: Evaluation note* Diagnosis Abscess- Primary Cellulitis and abscess of unspecified site Abscess Cellulitis and abscess of unspecified site documented in this encounter [facility] note* Diagnosis Gluteal abscess- Primary Cellulitis [...] alone Opioid-induced constipation documented in this encounter [facility] Work Phone: Evaluation note* Diagnosis Gluteal abscess- [...] left hip Hypercalcemia documented in this encounter [facility] Work Phone: Evaluation note* Diagnosis Abscess of left hip- Primary Abscess of left hip [facility] Diagnosis [...] Rhinitis, unspecified type documented in this encounter [facility] Work Phone: Evaluation note* Diagnosis Gluteal abscess- [...] of malignancy Hypercalcemia documented in this encounter [facility] Work Phone: Evaluation note* Diagnosis Sepsis, due to unspecified organism, unspecified whether acute organ dysfunction present (HCC)- Primary Sepsis, due to unspecified organism, unspecified whether acute organ dysfunction present (HCC) Abscess of left hip [facility] assessment information availableWSelect [facility] Work Phone: Evaluation note* Diagnosis Gluteal abscess- [...] limb, including hip documented in this encounter [facility] Work Phone: Evaluation note* Diagnosis Gluteal abscess- [...] limb, including hip documented in this encounter [facility] Work Phone: Evaluation note* Diagnosis Gluteal abscess- [...] limb, including hip documented in this encounter [facility] Work Phone: Evaluation note* Diagnosis Gluteal abscess- [...] limb, including hip documented in this encounter [facility] Work Phone: Evaluation note* Diagnosis Gluteal abscess- [...] limb, including hip documented in this encounter [facility] Work Phone: Evaluation note* Diagnosis Gluteal abscess- [...] limb, including hip documented in this encounter [facility] Work Phone: Evaluation note* Diagnosis Gluteal abscess- [...] change of dressing documented in this encounter [facility] Work Phone: Evaluation note* Diagnosis Gluteal abscess- [...] pain medication therapy documented in this encounter [facility] Work Phone: Evaluation note* Diagnosis Gluteal abscess- [...] left thigh- Primary documented in this encounter [facility] Work Phone: Evaluation note* Diagnosis Gluteal abscess- [...] subsequent encounter- Primary documented in this encounter [facility] Work Phone: Evaluation note* Diagnosis Gluteal abscess- [...] Wound of thigh documented in this encounter [facility] Work Phone: Remaee for referral (narrative)No reason for referral information availableWSelect Medical [facility] Work Phone: Reason for visit Narrative* Auth/Cert Specialty Diagnoses / Procedures Referred By Contac t Referred To Contact Diagnoses Sepsis Procedures [place] [address] [place] [address] Phone: tel: fax: [facility] [address] [facility] [place] [address] Referral ID Status Reason Start Date Expiration Date Visits Re quested Visits Authorized [id number] 1 1 [facility] Work Phone: Rewaxb for visit Narrative* Auth/Cert (Routine) Specialty Diagnoses / Procedures Referred By Contac t Referred To Contact Diagnoses Gluteal abscess Gluteal mass vs abscess [place] [address] [place] [address] Phone: tel: fax: [facility] [address] [place] [address] Phone: tel: Referral ID Status Reason Start Date Expiration Date Visits Re quested Visits Authorized [id number] 1 1 [facility] Work Phone: Rekijb for visit Narrative* SCC Consult (Routine) - Authorized Specialty Diagnoses / Procedures Referred By Contac t Referred To Contact Hematology and Oncology Diagnoses Squamous [place] [address] [place] [address] Phone: tel: fax: [place] [address] [place] [address] Phone: tel: fax: Referral ID Status Reason Start Date Expiration Date Visits Requested Visits Authorized [id number] Authorized Specialty Services Required 11/19/2024 11/19/2025 1 1 [facility] Work Phone: Reziap for visit Narrative* Auth/Cert Specialty Diagnoses / Procedures Referred By Contac t Referred To Contact Diagnoses [place] [address] [place] [address] Phone: tel: fax: [facility] [address] [facility] [place] [address] Referral ID Status Reason Start Date Expiration Date Visits Re quested Visits Authorized [id number] 1 1 [facility] Work Phone: reason for visit Narrative* SCC Consult (Routine) - Authorized Specialty Diagnoses / Procedures Referred By Contac t Referred To Contact Palliative Medicine / Hematology and Oncology Diagnoses Cancer associated pain Omaira Clayton, SUPERVISOR RECORD PRESS-PAYROLL SPECIALIST [address] [place] [address] Phone: tel: fax: Referral ID Status Reason Start Date Expiration Date Visits Requested Visits Authorized [id number] Authorized Specialty Services Required 11/25/2024 11/25/2025 1 1 [facility] Work Phone: Reason for Referral Specialty Diagnoses / Procedures Referred By Contac t Referred To Contact Diagnoses Clinical trial participant Procedures ECG 12 lead (Ancillary Performed) [place]utz [place] PhD [id number] [facility] [place] [address] Referral ID Status Reason Start Date Expiration Date V isits Requested Visits Authorized [id number] Authorized 02/29/2024 02/28/2025 1 1 Advance Directives [...] Reason for Visit Chief Complaint Admit Date SENIOR CARE LAB WORK October 24, 2024 5:00am Chief Complaint Admit Date SENIOR CARE LAB WORK October 24, 2024 5:00am SENIOR CARE LAB WORK December 04, 2024 5 :00am Chief Complaint Admit Date SENIOR CARE LAB WORK February 18, 2025 5:0 0am SENIOR CARE LAB WORK February 20, 2025 5:0 0am SENIOR CARE LAB WORK March 12, 2025 5: 00am SENIOR CARE LAB WORK March 18, 2025 9:0 0pm Additional Source Comments Reason for Visit (unrecogniz ed section and content) Reason Comments Wound Check Specialty Diagnoses / Procedures Referred By Adrian t Referred To Contact Diagnoses Abscess of left hip Procedures . Juvenal Mathur MD [address] [facility] [address] [place] [id number] Phone: tel: fax: [facility] [address] [place] [phone] Phone: tel: Referral ID Status Reason Start Date Expiration Date Visits Re quested Visits Authorized [id number] 1 1 Specialty Diagnoses / Procedures Referred By Adrian t Referred To Contact Diagnoses Clinical trial participant Procedures ECG 12 lead (Ancillary Performed) Myles Lutz MD PhD [id number] [facility] [place] [address] Referral ID Status Reason Start Date Expiration Date V isits Requested Visits Authorized [id number] Authorized 02/29/2024 02/28/2025 1 1 Reason Comments Dehydration Fatigue Patient arrived to E D c/o dehydration and fatigue for a few days. Also c/o cough. Specialty Diagnoses / Procedures Referred By Adrian t Referred To Contact Diagnoses . Procedures . [facility] [address] [place] [address] Phone: tel: [facility] ED [address] [place] [address] Phone: tel: Referral ID Status Reason Start Date Expiration Date Visits Re quested Visits Authorized [id number] 1 1 Reason Comments Wound Check Pt arrives from SNF for possible sepsis. Had wound on buttock drained at in Sep. Has not had IV antibiotics at facility. Hx of rare skin condition with frequent abscesses. Aox4. Some N/V. Hypotensive 80-90 systolic. Reason Comments Follow-up Reason Comments Wound Infection Pt arrives by [facility] are from [facility] in [facility] care pt has had wound infection since September, pt stood up out of bed last night and it started bleeding and having a foul odor last night. Specialty Diagnoses / Procedures Referred By Adrian t Referred To Contact Diagnoses Sepsis, due to unspecified organism, unspecified whether acute organ dysfunction present (HCC) Procedures . Clarita Hay, [address] [place] [address] Phone: tel: fax: [facility] [address] [place] [phone] Phone: tel: Referral ID Status Reason Start Date Expiration Date Visits Re quested Visits Authorized [id number] 1 1 Reason Comments OTV In house [...] RN)1839 (New Bag - Provider: Yenny Unger RN)192 [...] sedation for opioid reversal - MUST notify cartoonist special effects provider immediately after first dose, may give [...] AMAN) 0506 (Given - Provider: Carley Arevalo, RN)1232 (Given - Provider: Jose Armando Orozco [...] Arevalo RN) 0902 (Given - Provider: Ronald dAair RN)2100 (Due) enoxaparin (Lovenox) syringe 40 mg [...] Arevalo RN)0937 (New Bag - Provider: Ronald dAair RN)1009 (Stopped - Provider: Ronald Adair RN)1600 [...] First dose on Mon10/19/24 at 0800, Mini-Bag Plus/ADD-[place] bag, Suspected Indication (Select all that apply): [...] Latricia Rm RN)1130 (Stopped - Provider: Latricia mR RN)1500 (Due - Provider: Dilan Dowd, PharmD)2100 [...] Paul RN)1800 (Given - Provider: Palma Paul RN)2052 (Given - Provider: Ericka Perkins RN) 0930 [...] treatment. 0930 (Given - Provider: Neva Gibbs RN)2113 (Given - Provider: Kathryn Araujo RN) 0948 [...] RN) 0511 (Given - Provider: Jamison Maldonado, RN)1347 (Given - Provider: Sabrina Ricks RN)2105 [...] RN)2107 (New Bag - Provider: Chuck Cisneros, RN) 0107 (Stopped - Provider: Chuck Cisneros, AMAN) piperacillin-tazobactam (Zosyn) IVPB 4,500 mg (COMPLETED) 4,500 [...] Allison Treadwell RN)1908 (Stopped - Provider: Mary Mackey, AMAN) vancomycin (Vancocin) 1,000 mg in sodium chloride 0.9 % 250 mL IVPB 1,000 mg, IntraVENous, at 166.7 mL/hr, Administer over 90 Minutes, Every 12 hours, First dose on Mon11/09/24 at 0500, ADD-[place] bag, Suspected Indication (Select all that apply): [...] Allison Treadwell, AMAN)2101 (Stopped - Provider: Allison Treadwell, AMAN) PRN Medication Order 11/08/2024 11/09/2024 11/10/2024 iopamidol [...] pupils, RR < 8; notify primary team cartoonist special effects if used ondansetron (Zofran) injection 4 mg(Linked [...] Comment: workflow)1006 (Given - Provider: Dani Serrato RN)2036 (Given - Provider: Lena Ambriz RN) [...] mg, oral, Nightly, First dose on Key 3/6/25 at 2100, Capsules may be opened and [...] Ericka Mary RN - Reason: Patient/family refused) 020 (Given - Provider: Ericka Mary RN)0918 (Given [...] Dani Serrato RN)1114 (Stopped - Provider: Tammy Ootole LPN)1734 (New Bag - Provider: Tammy Otoole [...] glass of water. 0929 (Given - Provider: Elys Diaz RN)2002 (Given - Provider: Ericka Mary [...] Ambriz, AMAN) 0330 (Given - Provider: Lena Ambriz, AMAN)0714 (Given - Provider: Lena Ambriz RN)1222 (Given [...] mg (COMPLETED) 15 mg, IntraVENous, Once, On 12/07/24 at 0505, For 1 dose 0514 (Given [...] sedation for opioid reversal - MUST notify cartoonist special effects provider immediately after first dose, may give [...] Hunter RN) 0022 (Given - Provider: Jimena Moody, AMAN)0847 (Given - Provider: Rosa Mcfadden, AMAN)1643 (Given [...] RN)2036 (Given - Provider: Sharron Ponce, AMAN) 0846 (Given - Provider: Rosa Mcfadden RN)2121 (Given - Provider: Carmina Corona RN) 0826 [...] Patient/family refused) 0536 (Given - Provider: Carmina Corona, AMAN)1300 (Due - Provider: Shanel Norwood RN)2100 (Due) [...] pudding 0908 (Given - Provider: Gaby Wyman RN)203 (Given - Provider: Sharron Ponce RN) 0847 (Given - Provider: Rosa Mcfadden RN)2121 (Given - Provider: Carmina Corona RN) 08 (Given - Provider: Shanel Norwood, RN)2100 (Due) lactated Ringer's bolus 1,000 mL (COMPLETED) 1,000 mL, intravenous, at 500 mL/hr, Administer over 2 Hours, Once, On Mon12/18/24 at 1100, For 1 dose 1054 (New Bag - Provider: Rosa Mcfadden, AMAN)1138 (Rate/Dose Verify - Provider: Rosa Mcfadden RN)1254 [...] RN)2220 (Given - Provider: Sharron Ponce RN) 06 (Given - Provider: Sharron Ponce RN)1411 (Given - Provider: Rosa Mcfadden RN)212 (Given - Provider: Carmina Corona RN) 0514 (Given - Provider: Carmina Corona RN)1308 (Given - Provider: Shanel Norwood, RN)2200 (Due) polyethylene glycol (Glycolax, Miralax) packet 17 [...] Patient/family refused)2036 (Not Given - Provider: Sharron Ponce, AMAN - Reason: Patient/family refused) 0852 (Given - Provider: Rosa Mcfadden RN)212 (Given - Provider: Carmina Corona, AMAN) 0827 (Given - Provider: Shanel Norwood RN)2099 (Due) tiZANidine (Zanaflex) tablet 2 mg 2 mg, oral, 3 times daily, First dose on 12/07/24 at 2100 0908 (Given - Provider: Gaby Wyman RN)1431 (Given - Provider: Gaby Wyman RN)2035 (Given - Provider: Sharron Ponce RN) 0846 (Given - Provider: Rosa Mcfadden, AMAN)1449 (Given - Provider: Rosa Mcfadden, AMAN)2252 (Given - Provider: Carmina Corona, AMAN) 0827 (Given - Provider: Shanel Norwood, AMAN)1500 (Due)2099 (Due) varenicline tartrate (Chantix) tablet 1 mg 1 mg, oral, 2 times daily, First dose on 12/07/24 at 2100, Give with meals and with a full glass of water. 0908 (Given - Provider: Gaby Wyman RN)2035 (Given - Provider: Sharron Ponce RN) 0847 (Given - Provider: Rosa Mcfadden, AMAN)2122 (Given - Provider: Carmina Corona, AMAN) 0827 (Given - Provider: Shanel Norwood, AMAN)2099 (Due) PRN Medication Order 12/17/2024 12/18/2024 12/19/2024 HYDROmorphone (Dilaudid) injection 1 mg 1 mg, intravenous, Every 2 hour PRN, pain breakthrough, Starting on 12/07/24 at 1728 0908 (Given - Provider: Gaby M Garo, RN)1242 (Given - Provider: Gaby Wyman RN)2220 [...] Ponce RN)0847 (Given - Provider: Rosa Mcfadden, AMAN)1240 (Given - Provider: Rosa Mcfadden, RN)1608 (Given - Provider: Rosa Mcfadden, RN)1933 (Given - Provider: Rosa Mcfadden, RN)2250 (Given - Provider: Carmina Corona RN) 0136 (Given - Provider: Carmina Corona RN)0458 (Given - Provider: Carmina Corona RN)0825 (Given - Provider: Shanel Norwood, RN)1246 (Given - Provider: Shanel Norwood, RN) oxygen (O2) therapy inhalation, Continuous PRN [...] line, Starting on 12/08/24 at 1023, Give NH if patient is unable to take orally [...] line, Starting on Mon12/08/24 at 1023, Give NH if patient is unable to take orally [...] Barry Man RN)0447 (Stopped - Provider: Barry Man, RN)0924 (New Bag - Provider: Sunni Meehan [...] Meehan RN)1239 (Rate/Dose Change - Provider: Sunni Meehan, RN)2123 (New Bag - Provider: Diana Wise RN) 0147 (Rate/Dose Verify - Provider: Diana Wise RN)0518 (New Bag - Provider: Diana Wise RN)0900 (Stopped - Provider: Wili López RN) norepinephrine (Levophed) 4 mg in 0.9% sodium chloride 250 mL infusion (Azp-Rqcvfi-Doeeb) (premix) (CANCELED) 2-50 mcg/min (7.5-187.5 mL/hr), IntraVENous, Continuous, Starting on Mon12/22/24 at 1605, For 24 hours, If Titrate Infusion? is No: Disregard instructions below. If Titrate infusion? is Yes: If rate LESS than 10 mcg/min: Titrate [...] sedation for opioid reversal - MUST notify cartoonist special effects provider immediately after first dose, may give [...] at 1227 1603 (Given - Provider: Mary Mcakey, AMAN)2001 (Given - Provider: Barry Man, AMAN) 0238 (Given - Provider: Barry Man, RN)0652 (Given - Provider: Barry Man, RN)2127 (Given - Provider: Diana Wise, AMAN) 0146 (Given - Provider: Diana Wise, AMAN) polyethylene glycol (PEG) 3350 (Miralax) packet 17 [...] Care Teams (unrecognized sec tion and content) Nuclear Plant Technical Advisor Relationship Specialty [place] [address] [place] [address] Consulting Physician Hematology and Oncology 11/29/24 Nuclear Plant Technical Advisor Relationship Specialty [place] [address] [place], [place] [id number] Consulting Physician Hematology and Oncology 11/29/24 Nuclear Plant Technical Advisor Relationship Specialty [place] [address] [place], [place] [id number] Consulting Physician Hematology and Oncology 11/29/24 Team [...] December 04, 2024 End: December 04, 2024 Nuclear Plant Technical Advisor Relationship Specialty [place] [address] [place] [address] Consulting Physician Hematology and Oncology 11/29/24 Nuclear Plant Technical Advisor Relationship Specialty [place] [address] [place] [address] Consulting Physician Hematology and Oncology 11/29/24 Nuclear Plant Technical Advisor Relationship Specialty Start Date End Date Generic Provider, No [place] [address] PCP - General Leasing Consultant 01/03/25 [place] [address] [place] [address] Consulting Physician Hematology and Oncology 11/29/24 Nuclear Plant Technical Advisor Relationship Specialty Start Date End Date Generic Provider, No [place] [address] PCP - General Leasing Consultant 01/03/25 [place] [address] [place] [address] Consulting Physician Hematology and Oncology 11/29/24 Nuclear Plant Technical Advisor Relationship Specialty Start Date End Date Generic Provider, No [place] [address] PCP - General Leasing Consultant 01/03/25 [place] [address] [place] [address] Consulting Physician Hematology and Oncology 11/29/24 Nuclear Plant Technical Advisor Relationship Specialty Start Date End Date Generic Provider, [place] [address] PCP - General Leasing Consultant 01/03/25 [place] [address] [place] [address] Consulting Physician Hematology and Oncology 11/29/24 Nuclear Plant Technical Advisor Relationship Specialty Start Date End Date Generic Provider, No [place] [address] PCP - General Leasing Consultant 01/03/25 [place] [address] [place] [address] Consulting Physician Hematology and Oncology 11/29/24 Nuclear Plant Technical Advisor Relationship Specialty Start Date End Date Generic Provider, No [place] [address] PCP - General Leasing Consultant 01/03/25 [place] [address] [place] [address] Consulting Physician Hematology and Oncology 11/29/24 Nuclear Plant Technical Advisor Relationship Specialty Start Date End Date Generic Provider, No [place] [address] PCP - General Leasing Consultant 01/03/25 [place] [address] [place] [address] Consulting Physician Hematology and Oncology 11/29/24 Nuclear Plant Technical Advisor Relationship Specialty Start Date End Date Generic Provider, No [place]igned [place] [address] PCP - General Leasing Consultant 01/03/25 [place] [address] [place] [address] Consulting Physician Hematology and Oncology 11/29/24 Nuclear Plant Technical Advisor Relationship Specialty Start Date End Date Generic Provider, No Assigned PcpMD [place] [address] PCP - General Leasing Consultant 01/03/25 [place] [address] [place] [address] Consulting Physician Hematology and Oncology 11/29/24 [place] [address] [place] [address] Consulting Physician Hematology and Oncology 01/30/25 Nuclear Plant Technical Advisor Relationship Specialty Start Date End Date Generic Provider, No [place] [address] PCP - General Leasing Consultant 01/03/25 [place] [address] [place] [address] Consulting Physician Hematology and Oncology 11/29/24 [place] [address] [place] [address] Consulting Physician Hematology and Oncology 01/30/25 Nuclear Plant Technical Advisor Relationship Specialty Start Date End Date Generic Provider, No [place] [address] PCP - General Leasing Consultant 01/03/25 [place] [address] [place] [address] Consulting Physician Hematology and Oncology 11/29/24 [place] [address] [place] [address] Consulting Physician Hematology and Oncology 01/30/25 Nuclear Plant Technical Advisor Relationship Specialty Start Date End Date Generic Provider, No Assigned [place] [address] PCP - General Leasing Consultant 01/03/25 [place] [address] [place] [address] Consulting Physician Hematology and Oncology 11/29/24 [place] [address] [place] [address] Consulting Physician Hematology and Oncology 01/30/25 Nuclear Plant Technical Advisor Relationship Specialty Start Date End Date Generic Provider, No Assigned Pcp, [place] [address] PCP - General Leasing Consultant 01/03/25 [place] [address] [place] [address] Consulting Physician Hematology and Oncology 11/29/24 [place] [address] [place] [address] Consulting Physician Hematology and Oncology 01/30/25 Team [...] section and content) DATE CREATED AUTHOR 12/21/2024 [facility] DATE CREATED AUTHOR AUTHOR'S ORGANIZ ATION 12/31/2024 [facility] DATE CREATED AUTHOR AUTHOR'S ORGANIZ ATION 03/28/2025 [facility] DATE CREATED AUTHOR AUTHOR'S ORGANIZ ATION 04/18/2025 [facility] DATE CREATED AUTHOR AUTHOR'S ORGANIZ ATION 04/26/[address] [facility] Goals (unrecognized section and content) Goals may [...] BE BASED ON THE PRIMARY CLINICAL RECORDS. [employer] provides no warranty or guarantee of the accuracy or completeness of information in this document.
--- OUTSIDE RECORDS SUMMARY | 2025-04-28 04:51 | XMS RPT_ITS | CCD ---
Author Organization [facility] Care Team Providers Care Manager Administration Name Role Phone Unavailable Primary Care Provider [...] e Provider Unavailable Tyree NIELSEN, Swathi Unavailable [phone] Generic Provider , No Assigned Pcp Primary [...] Unavailable Julio Hare Primary Care Unavailable Julio Hrae Attending Unavailable Julio Hare Attending Unavailable Julio [...] [BANANA] Propensity to adverse reactions 5 Itching [facility] (14 sources) Banana Extract Drug Allergy 5 Itching [facility] (1 source) ALLERGIES NOT ON FILE; Translations: [ALLERGIES NOT ON FILE] Propensity to adverse reactions (disorder) [facility] 3 Repository Medications Current Medications Medication [...] D3, (VITAMIN D3 ORAL) (1 source) take 03262 [IU] by mouth once daily cholecalciferol, vitamin [...] Active docusate sodium 50 mg / sennosides, mcc 8.6 mg oral tablet (20 sources) Start: [...] a day. As directed. Suspended Study STOP-HS1 [id number] povorcitinib 45mg or 75mg tablet (20 sources) Start: 09-30-2024 take 1 tablet by mouth once daily in the morning Study STOP-HS1 [id number] povorcitinib 45mg or 75mg tablet Indications: Clinical trial participant Take 1 tablet by mouth once daily. Preferably in the morning, with a full glass of water. 31 tablet 09/30/2024 Active Start: 08-20-2024 take 1 tablet by barbara th once daily in the morning Study [facility] [id number] povorcitinib 45mg or 75mg tablet Indications: Clinical trial participant Take 1 tablet by mouth once daily. Preferably in the morning, with a full glass of water. 62 tablet 08/20/2024 Active Start: 07-08-2024 take 1 tablet by barbara th once daily in the morning Study [facility] [id number] povorcitinib 45mg or 75mg tablet Indications: Clinical trial participant Take 1 tablet by mouth once daily. Preferably in the morning, with a full glass of water. 62 tablet 07/08/2024 Active Start: 05-27-2024 take 1 tablet by barbara th once daily in the morning Study [facility] [id number] povorcitinib 45mg or 75mg tablet Indications: Clinical trial participant Take 1 tablet by mouth once daily. Preferably in the morning, with a full glass of water. 62 tablet 05/27/2024 Active Start: 04-12-2024 take 1 tablet by barbara th once daily in the morning Study [facility] [id number] povorcitinib 45mg or 75mg tablet Indications: Clinical trial participant Take 1 tablet by mouth once daily. Preferably in the morning, with a full glass of water. 62 tablet 04/12/2024 Active Start: 04-04-2024 take 1 tablet by barbara th once daily in the morning Study [facility] [id number] povorcitinib 45mg or 75mg tablet Indications: Clinical trial participant Take 1 tablet by mouth once daily. Preferably in the morning, with a full glass of water. 31 tablet 04/04/2024 Active Start: 02-29-2024 take 1 tablet by barbara th once daily in the morning Study [facility] [id number] povorcitinib 45mg or 75mg tablet Indications: Clinical trial participant Take 1 tablet by mouth once daily. Preferably in the morning, with a full glass of water. 31 tablet 02/29/2024 Active Study [facility] [id number] povorcitinib 45mg, 75mg or placebo tablet (20 sources) Start: 02-09-2024 take 1 tablet by mouth once daily in the morning Study [facility] [id number] povorcitinib 45mg, 75mg or placebo tablet Indications: Clinical trial participant Take 1 tablet by mouth once daily. Preferably in the morning, with a full glass of water. 31 tablet 02/09/2024 Active Start: 01-16-2024 take 1 tablet by barbara th once daily in the morning Study STOP-[facility] [id number] povorcitinib 45mg, 75mg or placebo tablet Indications: Clinical trial participant Take 1 tablet by mouth once daily. Preferably in the morning, with a full glass of water. 31 tablet 01/16/2024 Active Start: 12-29-2023 take 1 tablet by barbara th once daily in the morning Study [facility]OP-[facility] [id number] povorcitinib 45mg, 75mg or placebo tablet Indications: Clinical trial participant Take 1 tablet by mouth once daily. Preferably in the morning, with a full glass of water. 31 tablet 12/29/2023 Active Start: 12-11-2023 take 1 tablet by barbara th once daily in the morning Study [facility] [id number] povorcitinib 45mg, 75mg or placebo tablet Indications: Clinical trial participant Take 1 tablet by mouth once daily. Preferably in the morning, with a full glass of water. 31 tablet 12/11/2023 Active Start: 12-11-2023 take 1 tablet by barbara th once daily in the morning Study [facility] [id number] povorcitinib 45mg, 75mg or placebo tablet Indications: [...] line, Starting on Mon12/08/24 at 1023, Give KS if patient is unable to take orally [...] patient preference? Yes 20 ml albumin human, mcc 250 mg/ml injection (2 sources) Human Serum [...] in 0.9% sodium chloride 250 mL infusion (Ups-Twyvlm-Umhct) (premix) (2 sources) Start: 12-22-2024 End: 12-23-2024 [...] and Soft Tissue Infection polyethylene glycol 3350 55819 mg powder for oral solution (20 sources) [...] hours, First dose on 11/09/24 at 0500, ADD-Racine bag, Suspected Indication (Select all that apply): [...] (1 source) Drug therapy finding; Translations: [Other rn long term care (current) drug therapy] 11-27-2024 Episodic Other aftercare (1 source) Long-term current use of drug therapy; Translations: [Encounter for therapeutic drug level monitoring] 03-10-2025 Episodic Other aftercare (2 sources) Encounter for therapeutic drug level monitoring; Translations: [Encounter for therapeutic drug level monitoring] Onset: Episodic Other aftercare (2 sources) senior living (current) use of opiate analgesic; Translations: [senior living (current) use of opiate analgesic] Onset: 5 [...] 11-27-2024 Episodic Other aftercare (2 sources) Other rn long term care (current) drug therapy; Translations: [Other rn long term care (current) drug therapy] Onset: 11-10-2024 Episodic Other [...] Microscopic observation Gram stain Nom (Unsp spec) [facility] Routine wound cultureOrdered By: Julio Nolasco on 03-18-2025 Microbial culture, routine Morganella morganii sp morgani Abnormal [facility] Anion gap in Serum or Plasma Ordered By: Julio Nolasco on 02-20-2025 Anion gap [Moles/Vol] 13 mmol/L 5- [facility] BUN/creatinine ratioOrdered By: Julio Nolasco on 02-20-2025 Urea nitrogen/Creatinine [Mass ratio] 11.2 mg/mg - [facility] Bilirubin, totalOrdered By: Julio Nolasco on 02-20-2025 Bilirubin [Mass/Vol] 0.25 mg/dL 0.00-1.30 [facility] Calculated very low density lipoprotein (VLDL) cholesterol measurementOrdered By: Julio Nolasco on 02-20-2025 Calculated very low density lipoprotein (VLDL) cholesterol measurement 60 mg/dL High 5-40 [facility] Carbon dioxide, total [Moles /volume] in Central venous bloodOrdered By: Julio Nolasco on 02-20-2025 CO2 [Moles/Vol] 22.1 mmol/L 21.0-32.0 [facility] Chloride assayOrdered By: Antwon Nolasco on 02-20-2025 Chloride [Moles/Vol] 103 mmol/L 98-108 [facility] Erythrocyte distribution wid th ratioOrdered By: Julio Nolasco on 02-20-2025 Erythrocyte distribution width (RBC) [Ratio] 19.9 % High 11.6-14.6 [facility] Erythrocyte distribution wid th standard deviationOrdered By: Julio Nolasco on 02-20-2025 Erythrocyte distribution width (RBC) [Ratio] 57.8 fl High 35.1-43.9 [facility] Glomerular filtration rate ( GFR) estimation/1.73 sq m using serum, plasma, or whole bOrdered By: Julio Nolasco on 02-20-2025 GFR/1.73 sq M.predicted among non-blacks MDRD (S/P/Bld) [Vol rate/Area] 62 mL/min/{1.73_m2} >60 [facility] Comment on above: mL/min/1.73m2 CKD-EP I Creatinine Equation (2020) Hematocrit Auto (Bld) [Volum e fraction]Ordered By: Julio Nolasco on 02-20-2025 Hematocrit (Bld) [Volume fraction] 25.1 % Low 40-54 [facility] Hemoglobin measurementOrdere d By: Julio Nolasco on 02-20-2025 Hemoglobin (Bld) [Mass/Vol] 7.7 g/dL Low 13.0-16.5 [facility] LDL calc ser/plasOrdered By: Julio Nolasco on 02-20-2025 Cholesterol in LDL [Mass/Vol] 94 mg/dL [facility] Comment on above: Bufvwdctxq=035-048 m g/dL & Higher Ugbo=677 mg/dL or greater Laboratory - Chemistry and C hemistry - challengeOrdered By: Julio Nolasco on 02-20-2025 AST [Catalytic activity/Vol] 17 U/L <38 [facility] MCV (mean corpuscular volume ) determinationOrdered By: Julio Nolasco on 02-20-2025 MCV (RBC) [Entitic vol] 79.2 fL Low 80-94 [facility] Magnesium measurement (mass/ volume)Ordered By: Julio Nolasco on 02-20-2025 Magnesium (Unsp spec) [Mass/Vol] 2.1 mg/dL 1.5-2.2 [facility] Mean corpuscular hemoglobin (MCH) determinationOrdered By: Julio Nolasco on 02-20-2025 MCH (RBC) [Entitic mass] 24.3 pg Low 27.0-32.0 [facility] Mean corpuscular hemoglobin concentration (MCHC) determinationOrdered By: Julio Nolasco on 02-20-2025 MCHC (RBC) [Mass/Vol] 30.7 g/dL Low 32-36 [facility] Mean platelet volume determi nationOrdered By: Julio Nolasco on 02-20-2025 Platelet mean volume (Bld) [Entitic vol] 9.4 fL 6.2-12.0 [facility] Platelet countOrdered By: Antwon Nolasco on 02-20-2025 Platelets (Bld) [#/Vol] 880 10*3/uL High 150-450 [facility] Comment on above: CRITICAL VALUE DAVALOS D TO GRIS RAMACHANDRAN02/20/25 0928 Ainsley Lara.RESULTS READ BACK BY SAME. Potassium measurement (mass/ volume)Ordered By: Julio Nolasco on 02-20-2025 Potassium (Unsp spec) [Mass/Vol] 4.7 mmol/L 3.3-5.1 [facility] RBC Auto (Bld) [#/Vol]Ordere d By: Julio Nolasco on 02-20-2025 RBC (Bld) [#/Vol] 3.17 10*6/uL Low 4.6-6.2 [facility] Screening total cholesterol/ high density lipoprotein (HDL) cholesterol ratioOrdered By: Julio Nolasco on 02-20-2025 Cholesterol.total/Choles terol in HDL [Mass ratio] 9.77 {ratio} [facility] Serum creatinine measurement (mass/volume)Ordered By: Julio Nolasco on 02-20-2025 Creatinine [Mass/Vol] 1.38 mg/dL High 0.70-1.20 [facility] Serum globulin measurementOr dered By: Julio Nolasco on 02-20-2025 Globulin (S) [Mass/Vol] 4.9 g/dL High 2.2-4.2 [facility] Serum glucose measurement (m ass/volume)Ordered By: Julio Nolasco on 02-20-2025 Glucose [Mass/Vol] 99 mg/dL 70-99 [facility] Serum or plasma alanine mora otransferase (ALT) measurementOrdered By: Julio Nolasco on 02-20-2025 ALT [Catalytic activity/Vol] 18 U/L <47 [facility] Serum or plasma albumin mervat urement (mass/volume)Ordered By: Julio Nolasco on 02-20-2025 Albumin [Mass/Vol] 2.9 g/dL Low 3.5-5.0 [facility] Serum or plasma albumin/glob ulin mass ratioOrdered By: Julio Nolasco on 02-20-2025 Albumin/Globulin [Mass ratio] 0.6 {ratio} Low 0.9-2.4 [facility] Serum or plasma alkaline cata sphatase measurementOrdered By: Julio Nolasco on 02-20-2025 ALP [Catalytic activity/Vol] 172 U/L High 40-129 [facility] Serum or plasma calcium mervat urement (mass/volume)Ordered By: Julio Nolasco on 02-20-2025 Calcium [Mass/Vol] 8.9 mg/dL 7.6-11.0 [facility] Serum or plasma cholesterol in HDL measurement (mass/volume)Ordered By: Julio Nolasco on 02-20-2025 Cholesterol in HDL [Mass/Vol] 18 mg/dL Low >40 [facility] Comment on above: National Cholesterol Education Program (NCEP) guidelines:<40 mg/dL: Low HDL-cholesterol (major risk factor for CHD)>= 60 mg/dL: High HDL-cholesterol (negative risk factor for CHD)HDL-cholesterol is affected by a number of factors, e.g. smoking, exercise, hormones, sex and age. Serum or plasma cholesterol measurement (mass/volume)Ordered By: Julio Nolasco on 02-20-2025 Cholesterol [Mass/Vol] 172 mg/dL <201 [facility] Comment on above: Cholesterol level, D esirable <200 mg/dLBorderline high cholesterol 200-239 mg/dLHigh cholesterol >=240 mg/dLRecommendations of the NCEP Adult Treatment Panel for the following risk-cutoff thresholds for the [place] population. Serum or plasma urea nitroge n measurement (mass/volume)Ordered By: Julio Nolasco on 02-20-2025 Urea nitrogen [Mass/Vol] 16 mg/dL 4-19 [facility] Sodium levelOrdered By: William Nolasco on 02-20-2025 Sodium [Moles/Vol] 138 mmol/L 133-145 [facility] TSH DL <= 0.005 mIU/L QnOrde red By: Julio Nolasco on 02-20-2025 TSH Qn 5.140 uIU/mL High 0.300-4.200 [facility] Total proteinOrdered By: Adolfo Nolasco on 02-20-2025 Protein [Mass/Vol] 7.8 g/dL 5.9-8.4 [facility] Triglycerides measurementOrd ered By: Julio Nolasco on 02-20-2025 Triglyceride [Mass/Vol] 300 mg/dL High <199 [facility] Comment on above: The drugs N-Acetylcy steine and Metamizole may falsely depress this assay. Normal range: <150 mg/dLBorderline High: 150-199 mg/dLHigh: 200-499 mg/dLVery High: >500 mg/dL White blood cell (WBC) count Ordered By: Julio Nolasco on 02-20-2025 WBC (Bld) [#/Vol] 10.7 10*3/uL 4.4-11.0 [facility] Anion gap in Serum or Plasma Ordered By: Julio Nolasco on 02-18-2025 Anion gap [Moles/Vol] 14 mmol/L 5-15 [facility] BUN/creatinine ratioOrdered By: Julio Nolasco on 02-18-2025 Urea nitrogen/Creatinine [Mass ratio] 13.2 mg/mg 10-20 [facility] Bilirubin, totalOrdered By: Julio Nolasco on 02-18-2025 Bilirubin [Mass/Vol] 0.30 mg/dL 0.00-1.30 [facility] Blood manual differential co mment interpretation (narrative result)Ordered By: Julio Nolasco on 02-18-2025 Manual differential comment Florencio (Bld) [Interp] SCANNED [facility] Comment on above: MARKED THROMBOCYTOSI S Calculated very low density lipoprotein (VLDL) cholesterol measurementOrdered By: Julio Nolasco on 02-18-2025 Calculated very low density lipoprotein (VLDL) cholesterol measurement 55 mg/dL High 5-40 [facility] Carbon dioxide, total [Moles /volume] in Central venous bloodOrdered By: Julio Nolasco on 02-18-2025 CO2 [Moles/Vol] 21.5 mmol/L 21.0-32.0 [facility] Chloride assayOrdered By: Antwon Nolasco on 02-18-2025 Chloride [Moles/Vol] 101 mmol/L 98-108 [facility] Erythrocyte distribution wid th ratioOrdered By: Julio Nolasco on 02-18-2025 Erythrocyte distribution width (RBC) [Ratio] 19.9 % High 11.6-14.6 [facility] Erythrocyte distribution wid th standard deviationOrdered By: Julio Nolasco on 02-18-2025 Erythrocyte distribution width (RBC) [Ratio] 56.9 fl High 35.1-43.9 [facility] Glomerular filtration rate ( GFR) estimation/1.73 sq m using serum, plasma, or whole bOrdered By: Julio Nolasco on 02-18-2025 GFR/1.73 sq M.predicted among non-blacks MDRD (S/P/Bld) [Vol rate/Area] 74 mL/min/{1.73_m2} >60 [facility] Comment on above: mL/min/1.73m2 CKD-EP I Creatinine Equation (2020) Hematocrit Auto (Bld) [Volum e fraction]Ordered By: Julio Nolasco on 02-18-2025 Hematocrit (Bld) [Volume fraction] 23.8 % Low 40-54 [facility] Hemoglobin A1c percentageOrd ered By: Julio Nolasco on 02-18-2025 HbA1c (Bld) [Mass fraction] 6.3 % High <5.7 [facility] Comment on above: Normal < 5.7 % Predi abetic 5.7 - 6.4 % Diabetic >or= 6.5 % Please note range changes. Hemoglobin measurementOrdere d By: Julio Nolasco on 02-18-2025 Hemoglobin (Bld) [Mass/Vol] 7.4 g/dL Low 13.0-16.5 [facility] LDL calc ser/plasOrdered By: Julio Nolasco on 02-18-2025 Cholesterol in LDL [Mass/Vol] 83 mg/dL [facility] Comment on above: Ywmqbeawbc=508-098 m g/dL & Higher Idwy=907 mg/dL or greater Laboratory - Chemistry and C hemistry - challengeOrdered By: Julio Nolasco on 02-18-2025 AST [Catalytic activity/Vol] 18 U/L <38 [facility] MCV (mean corpuscular volume ) determinationOrdered By: Julio Nolasco on 02-18-2025 MCV (RBC) [Entitic vol] 79.1 fL Low 80-94 [facility] Magnesium measurement (mass/ volume)Ordered By: Julio Nolasco on 02-18-2025 Magnesium (Unsp spec) [Mass/Vol] 2.0 mg/dL 1.5-2.2 [facility] Mean corpuscular hemoglobin (MCH) determinationOrdered By: Julio Nolasco on 02-18-2025 MCH (RBC) [Entitic mass] 24.6 pg Low 27.0-32.0 [facility] Mean corpuscular hemoglobin concentration (MCHC) determinationOrdered By: Julio Nolasco on 02-18-2025 MCHC (RBC) [Mass/Vol] 31.1 g/dL Low 32-36 [facility] Mean platelet volume determi nationOrdered By: Julio Nolasco on 02-18-2025 Platelet mean volume (Bld) [Entitic vol] 9.5 fL 6.2-12.0 [facility] Platelet countOrdered By: Antwon Nolasco on 02-18-2025 Platelets (Bld) [#/Vol] 874 10*3/uL High 150-450 [facility] Potassium measurement (mass/ volume)Ordered By: Julio Nolasco on 02-18-2025 Potassium (Unsp spec) [Mass/Vol] 4.3 mmol/L 3.3-5.1 [facility] RBC Auto (Bld) [#/Vol]Ordere d By: Julio Nolasco on 02-18-2025 RBC (Bld) [#/Vol] 3.01 10*6/uL Low 4.6-6.2 [facility] Review by pathologistOrdered By: Julio Nolasco on 02-18-2025 Pathologist review Florencio (Unsp spec) [Interp] Reviewed [facility] Comment on above: Previous reported re sult: Laina galeana Edited by: LEANNE on 02/28/25:1554SEE REPORT IN PATIENT'S EMR AMENDED REPORT 02/28/25 1554 PATH REV previously reported as: Laina galeana Screening total cholesterol/ high density lipoprotein (HDL) cholesterol ratioOrdered By: Julio Nolasco on 02-18-2025 Cholesterol.total/Choles terol in HDL [Mass ratio] 9.57 {ratio} [facility] Serum creatinine measurement (mass/volume)Ordered By: Julio Nolasco on 02-18-2025 Creatinine [Mass/Vol] 1.19 mg/dL 0.70-1.20 [facility] Serum globulin measurementOr dered By: Julio Nolasco on 02-18-2025 Globulin (S) [Mass/Vol] 4.6 g/dL High 2.2-4.2 [facility] Serum glucose measurement (m ass/volume)Ordered By: Julio Nolasco on 02-18-2025 Glucose [Mass/Vol] 92 mg/dL 70-99 [facility] Serum or plasma alanine mora otransferase (ALT) measurementOrdered By: Julio Nolasco on 02-18-2025 ALT [Catalytic activity/Vol] 24 U/L <47 [facility] Serum or plasma albumin mervat urement (mass/volume)Ordered By: Julio Nolasco on 02-18-2025 Albumin [Mass/Vol] 3.0 g/dL Low 3.5-5.0 [facility] Serum or plasma albumin/glob ulin mass ratioOrdered By: Julio Nolasco on 02-18-2025 Albumin/Globulin [Mass ratio] 0.6 {ratio} Low 0.9-2.4 [facility] Serum or plasma alkaline cata sphatase measurementOrdered By: Julio Nolasco on 02-18-2025 ALP [Catalytic activity/Vol] 195 U/L High 40-129 [facility] Serum or plasma calcium mervat urement (mass/volume)Ordered By: Julio Nolasco on 02-18-2025 Calcium [Mass/Vol] 8.9 mg/dL 7.6-11.0 [facility] Serum or plasma cholesterol in HDL measurement (mass/volume)Ordered By: Julio Nolasco on 02-18-2025 Cholesterol in HDL [Mass/Vol] 16 mg/dL Low >40 [facility] Comment on above: National Cholesterol Education Program (NCEP) guidelines:<40 mg/dL: Low HDL-cholesterol (major risk factor for CHD)>= 60 mg/dL: High HDL-cholesterol (negative risk factor for CHD)HDL-cholesterol is affected by a number of factors, e.g. smoking, exercise, hormones, sex and age. Serum or plasma cholesterol measurement (mass/volume)Ordered By: Julio Nolasco on 02-18-2025 Cholesterol [Mass/Vol] 154 mg/dL <201 [facility] Comment on above: Cholesterol level, D esirable <200 mg/dLBorderline high cholesterol 200-239 mg/dLHigh cholesterol >=240 mg/dLRecommendations of the NCEP Adult Treatment Panel for the following risk-cutoff thresholds for the [place] population. Serum or plasma urea nitroge n measurement (mass/volume)Ordered By: Julio Nolasco on 02-18-2025 Urea nitrogen [Mass/Vol] 16 mg/dL 4-19 [facility] Sodium levelOrdered By: William Nolasco on 02-18-2025 Sodium [Moles/Vol] 136 mmol/L 133-145 [facility] TSH DL <= 0.005 mIU/L QnOrde red By: Julio Nolasco on 02-18-2025 TSH Qn 4.010 uIU/mL 0.300-4.200 [facility] Total proteinOrdered By: Adolfo Nolasco on 02-18-2025 Protein [Mass/Vol] 7.6 g/dL 5.9-8.4 [facility] Triglycerides measurementOrd ered By: Julio Nolasco on 06-03-2025 Triglyceride [Mass/Vol] 275 mg/dL High <199 [facility] Comment on above: The drugs N-Acetylcy steine and Metamizole may falsely depress this assay. Normal range: <150 mg/dLBorderline High: 150-199 mg/dLHigh: 200-499 mg/dLVery High: >500 mg/dL White blood cell (WBC) count Ordered By: Julio Nolasco on 02-18-2025 WBC (Bld) [#/Vol] 11.2 10*3/uL High 4.4-11.0 [facility] CBC panel Auto (Bld)on 02-17 Erythrocyte distribution width (RBC) [Ratio] 19.9 % High 11.5-14.5 [facility] Comment on above: Performed By: #### 5 8410-2 ####BHANU Treviño ([id number])[facility])[id number] [place] [address] Hematocrit (Bld) [Volume fraction] 23.6 % Low 41.0-52.0 [facility] Comment on above: Performed By: #### 5 8410-2 ####BHANU Treviño ([id number])[facility])[address] [place] [address] Hemoglobin (Bld) [Mass/Vol] 7.4 g/dL Low 13.5-17.5 [facility] Comment on above: Performed By: #### 5 8410-2 ####BHANU Treviño ([id number])[facility])[address] [place] [address] MCH (RBC) [Entitic mass] 24.7 pg Low 26.0-34.0 [facility] Comment on above: Performed By: #### 5 8410-2 ####BHANU Treviño ([id number])[facility])[address] [place] [address] MCHC (RBC) [Mass/Vol] 31.4 g/dL Low 32.0-36.0 [facility] Comment on above: Performed By: #### 5 8410-2 ####BHANU Treviño ([id number])[facility])[id number] [place] [address] MCV (RBC) [Entitic vol] 79 fL Low 80-[address] [facility] Comment on above: Performed By: #### 5 8410-2 ####BHANU Treviño ([id number])[facility])[address] [place] [address] Nucleated RBC/100 WBC (Bld) [Ratio] 0.0 /100 WBCs Normal 0.0-0.0 [facility] Comment on above: Performed By: #### 5 8410-2 ####BHANU Treviño ([id number])[facility])[address] [place] [address] Platelets (Bld) [#/Vol] 819 x10*3/uL High 150-450 [facility] Comment on above: Performed By: #### 5 8410-2 ####BHANU Treviño ([id number])[facility] ([facility])[address] [place] [address] RBC (Bld) [#/Vol] 2.99 x10*6/uL Low 4.50-5.90 [facility] Comment on above: Performed By: #### 5 8410-2 ####BHANU Treviño ([id number])[facility])[id number] [place] [address] WBC (Bld) [#/Vol] 12.6 x10*3/uL High 4.4-11.3 [facility] Comment on above: Performed By: #### 5 8410-2 ####BHANU Treviño ([id number])[facility])[id number] [place] [address] Comprehensive metabolic 2000 panelon 02-17-2025 Albumin BCP dye [Mass/Vol] 2.8 g/dL Low 3.4-5.0 [facility] Comment on above: Performed By: #### 2 4323-8 ####BHANU Treviño ([id number])[facility])[address] [place] [address] ALP [Catalytic activity/Vol] 173 U/L High 33-120 [facility] Comment on above: Performed By: #### 2 4323-8 ####BHANU Treviño ([id number])[facility])[address] [place] [address] ALT With P-5'-P [Catalytic activity/Vol] 26 U/L Normal 10-52 [facility] [facility] Comment on above: Result Comment: Sydni ents treated with Sulfasalazine may generate falsely decreased results for ALT. Performed By: #### 2 4323-8 ####BHANU Treviño ([id number])[facility] ([facility])[address] [place] [address] Anion gap [Moles/Vol] 15 mmol/L Normal 10-20 [facility] Comment on above: Performed By: #### 2 4323-8 ####BHANU Treviño ([id number])[facility] ([facility])[address]50 [place] [address] AST With P-5'-P [Catalytic activity/Vol] 14 U/L Normal 9-39 [facility] Comment on above: Performed By: #### 2 4323-8 ####BHANU Treviño (30038)[facility] ([facility])14166 [place] [address] Bilirubin [Mass/Vol] 0.3 mg/dL Normal 0.0-1.2 [facility] Comment on above: Performed By: #### 2 4323-8 ####BHANU Treviño (44220)[facility] ([facility])[address]141 [place] [address] Calcium [Mass/Vol] 8.4 mg/dL Low 8.6-10.6 [facility] Comment on above: Performed By: #### 2 4323-8 ####BHANU Treviño (08091)[facility] ([facility])[address] [place] [address] Chloride [Moles/Vol] 101 mmol/L Normal 98-107 [facility] Comment on above: Performed By: #### 2 4323-8 ####BHANU LAUREANOTZER L (90019)[facility] ([facility])[address]243 [place] [address] CO2 [Moles/Vol] 27 mmol/L Normal 21-32 [facility] Comment on above: Performed By: #### 2 4323-8 ####BHANU GREGORY L ([id number])[facility] ([facility])42325 [place] [address] Creatinine [Mass/Vol] 1.23 mg/dL Normal 0.50-1.30 [facility] Comment on above: Performed By: #### 2 4323-8 ####BHANU GREGORY L (77309)[facility] ([facility])37248 [place] [address] Glomerular filtration rate/1.73 sq M.predicted 71 mL/min/1.73m*2 Normal >[address] [facility] Comment on above: Result Comment: Calc ulations of estimated GFR are performed using the 2020 CKD-EPI Study Refit equation without the race variable for the IDMS-Traceable creatinine methods.https://jasn.asnjournals.org/content/ /ASN.4522411209 Performed By: #### 2 4323-8 ####BHANU GREGORY L (73760)[facility] ([facility])09384 [place] [address] Glucose [Mass/Vol] 88 mg/dL Normal 74-99 [facility] Comment on above: Performed By: #### 2 4323-8 ####BHANU GREGORY L (81434)[facility] ([facility])34560 [place] [address] Potassium [Moles/Vol] 5.1 mmol/L Normal 3.5-5.3 [facility] Comment on above: Performed By: #### 2 4323-8 ####BHANU Treviño (04200)[facility] ([facility])[address] [place] [address] Protein [Mass/Vol] 6.7 g/dL Normal 6.4-8.2 [facility] Comment on above: Performed By: #### 2 4323-8 ####BHANU Treviño (04055)[facility] ([facility])[address] [place] [address] Sodium [Moles/Vol] 138 mmol/L Normal 136-145 [facility] Comment on above: Performed By: #### 2 4323-8 ####BHANU Treviño (99349)[facility] ([facility])[address] [place] [address] Urea nitrogen [Mass/Vol] 16 mg/dL Normal 6-23 [facility] Comment on above: Performed By: #### 2 4323-8 ####BHANU Treviño (11670)[facility])[address] [place] [address] Magnesiumon 02-17-2025 Magnesium [Mass/Vol] 2.01 mg/dL Normal 1.60-2.40 [facility] Comment on above: Performed By: #### 1 9123-9 ####BHANU Treviño ([id number])[facility])[id number] [place] [address] CBC panel Auto (Bld)on 02-16 Erythrocyte distribution width (RBC) [Ratio] 19.7 % High 11.5-14.5 [facility] Comment on above: Performed By: #### 5 8410-2 ####BHANU Treviño (36309)[facility] ([facility])[address] [place] [address] Hematocrit (Bld) [Volume fraction] 22.1 % Low 41.0-52.0 [facility] Comment on above: Performed By: #### 5 8410-2 ####BHANU Treviño (55756)[facility] ([facility])70589 [place] [address] Hemoglobin (Bld) [Mass/Vol] 7.1 g/dL Low 13.5-17.5 [facility] Comment on above: Performed By: #### 5 8410-2 ####BHANU Treviño (22186)[facility] ([facility])60645 [place] [address] MCH (RBC) [Entitic mass] 24.8 pg Low 26.0-34.0 [facility] Comment on above: Performed By: #### 5 8410-2 ####BHANU Treviño (46486)[facility] ([facility])[address] [place] [address] MCHC (RBC) [Mass/Vol] 32.1 g/dL Normal 32.0-36.0 [facility] Comment on above: Performed By: #### 5 8410-2 ####BHANU Treviño (48090)[facility] ([facility])46075 [place] [address] MCV (RBC) [Entitic vol] 77 fL Low 80-[address] [facility] Comment on above: Performed By: #### 5 8410-2 ####BHANU Treviño (69500)[facility] ([facility])82174 [place] [address] Nucleated RBC/100 WBC (Bld) [Ratio] 0.0 /100 WBCs Normal 0.0-0.0 [facility] Comment on above: Performed By: #### 5 8410-2 ####BHANU Treviño (65098)[facility] ([facility])[address] [place] [address] Platelets (Bld) [#/Vol] 758 x10*3/uL High 150-450 [facility] Comment on above: Performed By: #### 5 8410-2 ####BHANU Treviño (44131)[facility] ([facility])68245 [place] [address] RBC (Bld) [#/Vol] 2.86 x10*6/uL Low 4.50-5.90 [facility] Comment on above: Performed By: #### 5 8410-2 ####BHANU Treviño (15553)[facility] ([facility])29296 [place] [address] WBC (Bld) [#/Vol] 14.1 x10*3/uL High 4.4-11.3 [facility] Comment on above: Performed By: #### 5 8410-2 ####BHANU Treviño (80317)[facility] ([facility])54779 [place] [address] Comprehensive metabolic 2000 panelon 02-16-2025 Albumin BCP dye [Mass/Vol] 2.9 g/dL Low 3.4-5.0 [facility] Comment on above: Performed By: #### 2 4323-8 ####BHANU Treviño (26569)[facility])58474 [place] [address] ALP [Catalytic activity/Vol] 157 U/L High 33-120 [facility] Comment on above: Performed By: #### 2 4323-8 ####BHANU Treviño (25521)[facility] ([facility])83889 [place] [address] ALT With P-5'-P [Catalytic activity/Vol] 30 U/L Normal 10-52 [facility] Comment on above: Result Comment: Sydni ents treated with Sulfasalazine may generate falsely decreased results for ALT. Performed By: #### 2 4323-8 ####BHANU Treviño (58205)[facility] ([facility])42972 [place] [address] Anion gap [Moles/Vol] 13 mmol/L Normal 10-20 [facility] Comment on above: Performed By: #### 2 4323-8 ####BHANU Treviño (83738)[facility] ([facility])[address]01 [place] [address] AST With P-5'-P [Catalytic activity/Vol] 16 U/L Normal 9-39 [facility] Comment on above: Performed By: #### 2 4323-8 ####BHANU Treviño (21481)[facility] ([facility])38991 [place] [address] Bilirubin [Mass/Vol] 0.3 mg/dL Normal 0.0-1.2 [facility] Comment on above: Performed By: #### 2 4323-8 ####BHANU Treviño (14905)[facility])01162 [place] [address] Calcium [Mass/Vol] 8.8 mg/dL Normal 8.6-10.6 [facility] Comment on above: Performed By: #### 2 432-8 ####BHANU Treviño (68452)[facility])35796 [place] [address] Chloride [Moles/Vol] 100 mmol/L Normal 98-107 [facility] Comment on above: Performed By: #### 2 4323-8 ####BHANU Treviño (82738)[facility] ([facility])65607 [place] [address] CO2 [Moles/Vol] 28 mmol/L Normal 21-32 [facility] Comment on above: Performed By: #### 2 4323-8 ####BHANU Treviño (91235)[facility] ([facility])23379 [place] [address] Creatinine [Mass/Vol] 1.18 mg/dL Normal 0.50-1.30 [facility] Comment on above: Performed By: #### 2 4323-8 ####BHANU Treviño (26201)[facility] ([facility])26554 [place] [address] Glomerular filtration rate/1.73 sq M.predicted 75 mL/min/1.73m*2 Normal >[address] [facility] Comment on above: Result Comment: Calc ulations of estimated GFR are performed using the 2020 CKD-EPI Study Refit equation without the race variable for the IDMS-Traceable creatinine methods.https://jasn.asnjournals.org/content/ /ASN.0759810229 Performed By: #### 2 4323-8 ####BHANU Treviño (17174)[facility] ([facility])15644 [place] [address] Glucose [Mass/Vol] 91 mg/dL Normal 74-99 [facility] Comment on above: Performed By: #### 2 4323-8 ####BHANU Treviño (82038)[facility])13625 [place] [address] Potassium [Moles/Vol] 4.3 mmol/L Normal 3.5-5.3 [facility] Comment on above: Performed By: #### 2 4323-8 ####BHANU Treviño (82371)[facility])84139 [place] [address] Protein [Mass/Vol] 7.3 g/dL Normal 6.4-8.2 [facility] Comment on above: Performed By: #### 2 4323-8 ####BHANU GREGORY L (36265)[facility])72791 [place] [address] Sodium [Moles/Vol] 137 mmol/L Normal 136-145 [facility] Comment on above: Performed By: #### 2 4323-8 ####BHANU Treviño (27103)[facility] ([facility])[address]9581 [place] [address] Urea nitrogen [Mass/Vol] 17 mg/dL Normal 6-23 [facility] Comment on above: Performed By: #### 2 4323-8 ####BHANU Treviño (26152)[facility])[address] [place] [address]77 Magnesiumon 02-16-2025 Magnesium [Mass/Vol] 1.98 mg/dL Normal 1.60-2.40 [facility] Comment on above: Performed By: #### 1 9123-9 ####BHANU Treviño (94849)[facility] ([facility])[address] [place] [address] CBC panel Auto (Bld)on 02-15 Erythrocyte distribution width (RBC) [Ratio] 20.0 % High 11.5-14.5 [facility] Comment on above: Performed By: #### 5 8410-2 ####BHANU Treviño (80346)[facility] ([facility])[address] [place] [address] Hematocrit (Bld) [Volume fraction] 23.6 % Low 41.0-52.0 [facility] Comment on above: Performed By: #### 5 8410-2 ####BHANU Treviño (78469)[facility] ([facility])[address] [place] [address] Hemoglobin (Bld) [Mass/Vol] 7.5 g/dL Low 13.5-17.5 [facility] Comment on above: Performed By: #### 5 8410-2 ####BHANU Treviño (46668)[facility] ([facility])[address] [place] [address] MCH (RBC) [Entitic mass] 24.4 pg Low 26.0-34.0 [facility] Comment on above: Performed By: #### 5 8410-2 ####BHANU Treviño (80890)[facility] ([facility])[address] [place] [address] MCHC (RBC) [Mass/Vol] 31.8 g/dL Low 32.0-36.0 [facility] Comment on above: Performed By: #### 5 8410-2 ####BHANU Treviño (25875)[facility] ([facility])53145 [place] [address] MCV (RBC) [Entitic vol] 77 fL Low 80-[address] [facility] Comment on above: Performed By: #### 5 8410-2 ####BHANU Treviño (04723)[facility] ([facility])[address] [place] [address] 21875 Nucleated RBC/100 WBC (Bld) [Ratio] 0.0 /100 WBCs Normal 0.0-0.0 [facility] Comment on above: Performed By: #### 5 8410-2 ####BHANU Treviño (16067)[facility])[address] [place] [address]21 Platelets (Bld) [#/Vol] 673 x10*3/uL High 150-450 [facility] Comment on above: Performed By: #### 5 8410-2 ####BHANU Treviño (29697)[facility])[address] [place] [address] 31770 RBC (Bld) [#/Vol] 3.07 x10*6/uL Low 4.50-5.90 [facility] Comment on above: Performed By: #### 5 8410-2 ####BHANU Treviño (02751)[facility])[address] [place] [address]38 WBC (Bld) [#/Vol] 20.2 x10*3/uL High 4.4-11.3 [facility] Comment on above: Performed By: #### 5 8410-2 ####BHANU Treviño (42216)[facility])[address] [place] [address] 25806 Comprehensive metabolic 2000 panelon 02-15-2025 Albumin BCP dye [Mass/Vol] 2.6 g/dL Low 3.4-5.0 [facility] Comment on above: Performed By: #### 2 4323-8 ####BHANU Treviño (73912)[facility])77152 [place] [address] ALP [Catalytic activity/Vol] 160 U/L High 33-120 [facility] Comment on above: Performed By: #### 2 4323-8 ####BHANU Treviño (37800)[facility])87147 [place] [address] ALT With P-5'-P [Catalytic activity/Vol] 36 U/L Normal 10-52 [facility] Comment on above: Result Comment: Sydni ents treated with Sulfasalazine may generate falsely decreased results for ALT. Performed By: #### 2 4323-8 ####BHANU Treviño (38797)[facility])42698 [place] [address] Anion gap [Moles/Vol] 15 mmol/L Normal 10-20 [facility] Comment on above: Performed By: #### 2 4323-8 ####BHANU Treviño (91162)[facility])45445 [place] [address] AST With P-5'-P [Catalytic activity/Vol] 23 U/L Normal 9-39 [facility] Comment on above: Performed By: #### 2 4323-8 ####BHANU Treviño (75304)[facility])93255 [place] [address] Bilirubin [Mass/Vol] 0.4 mg/dL Normal 0.0-1.2 [facility] Comment on above: Performed By: #### 2 4323-8 ####BHANU Treviño (38062)[facility])99201 [place] [address] Calcium [Mass/Vol] 8.3 mg/dL Low 8.6-10.6 [facility] Comment on above: Performed By: #### 2 4323-8 ####BHANU Treviño (70386)[facility])[address]48 [place] [address] Chloride [Moles/Vol] 100 mmol/L Normal 98-107 [facility] Comment on above: Performed By: #### 2 4323-8 ####BHANU GREGORY L (64049)[facility])[address]11 [place] [address] CO2 [Moles/Vol] 27 mmol/L Normal 21-32 [facility] Comment on above: Performed By: #### 2 4323-8 ####BHANU GREGORY L (60218)[facility])41103 [place] [address] Creatinine [Mass/Vol] 1.12 mg/dL Normal 0.50-1.30 [facility] Comment on above: Performed By: #### 2 4323-8 ####BHANU Treviño (78696)[facility])44797 [place] [address] Glomerular filtration rate/1.73 sq M.predicted 80 mL/min/1.73m*2 Normal >[address] [facility] Comment on above: Result Comment: Calc ulations of estimated GFR are performed using the 2020 CKD-EPI Study Refit equation without the race variable for the IDMS-Traceable creatinine methods.https://jasn.asnjournals.org/content/ /ASN.2591480687 Performed By: #### 2 4323-8 ####BHANU GREGORY L (51522)[facility])85788 [place] [address] Glucose [Mass/Vol] 102 mg/dL High 74-99 [facility] Comment on above: Performed By: #### 2 4323-8 ####BHANU GREGORY L (90799)[facility])31756 [place] [address] Potassium [Moles/Vol] 5.1 mmol/L Normal 3.5-5.3 [facility] Comment on above: Performed By: #### 2 4323-8 ####BHANU Treviño (90489)[facility])72934 [place] [address] Protein [Mass/Vol] 6.5 g/dL Normal 6.4-8.2 [facility] Comment on above: Performed By: #### 2 4323-8 ####BHANU Treviño (04339)[facility])[address] [place] [address]189 Sodium [Moles/Vol] 137 mmol/L Normal 136-145 [facility] Comment on above: Performed By: #### 2 4323-8 ####BHANU Treviño (66333)[facility])[address] [place] [address] 08999 Urea nitrogen [Mass/Vol] 16 mg/dL Normal 6-23 [facility] Comment on above: Performed By: #### 2 4323-8 ####BHANU Treviño (94341)[facility])[address] [place] [address] 83870 Magnesiumon 02-15-2025 Magnesium [Mass/Vol] 1.81 mg/dL Normal 1.60-2.40 [facility] Comment on above: Performed By: #### 1 9123-9 ####BHANU Treviño (31555)[facility])[address] [place] [address] 74901 Basic metabolic 2000 panelon 02-13-2025 Anion gap [Moles/Vol] 16 mmol/L Normal 10-20 [facility] Comment on above: Performed By: #### 2 4321-2 ####BHANU Treviño (03153)[facility])[address] [place] [address] 02720 Calcium [Mass/Vol] 8.4 mg/dL Low 8.6-10.6 [facility] Comment on above: Performed By: #### 2 4321-2 ####BHANU GREGORY L (40792)[facility])56098 [place] [address] Chloride [Moles/Vol] 103 mmol/L Normal 98-107 [facility] Comment on above: Performed By: #### 2 4321-2 ####BHANU FLEMINGMOTZER L (90898)[facility])60528 [place] [address] CO2 [Moles/Vol] 28 mmol/L Normal 21-32 [facility] Comment on above: Performed By: #### 2 4321-2 ####BHANU MATOSER L (86471)[facility])03013 [place] [address] Creatinine [Mass/Vol] 1.22 mg/dL Normal 0.50-1.30 [facility] Comment on above: Performed By: #### 2 1-2 ####BHANU LAUREANOTZALANNA L (91690)[facility])49638 [place] [address] Glomerular filtration rate/1.73 sq M.predicted 72 mL/min/1.73m*2 Normal >[address] [facility] Comment on above: Result Comment: Calc ulations of estimated GFR are performed using the 2020 CKD-EPI Study Refit equation without the race variable for the IDMS-Traceable creatinine methods.https://jasn.asnjournals.org/content/ /ASN.4231412473 Performed By: #### 2 1-2 ####BHANU GREGORY L (33104)[facility])11154 [place] [address] Glucose [Mass/Vol] 115 mg/dL High 74-99 [facility] Comment on above: Performed By: #### 2 4321-2 ####BHANU FLEMINGMOTZALANNA L (31267)[facility])68994 [place] [address] Potassium [Moles/Vol] 4.9 mmol/L Normal 3.5-5.3 [facility] Comment on above: Performed By: #### 2 4321-2 ####BHANU Treviño (55663)[facility])31935 [place] [address] Sodium [Moles/Vol] 142 mmol/L Normal 136-145 [facility] Comment on above: Performed By: #### 2 4321-2 ####BHANU Treviño (07167)[facility])01043 [place] [address] Urea nitrogen [Mass/Vol] 16 mg/dL Normal 6-23 [facility] Comment on above: Performed By: #### 2 4321-2 ####BHANU Treviño (46518)[facility])[address] [place] [address] 43330 Blood type and Indirect anti body screen panel (Bld)on 02-13-2025 ABO group Nom (Bld) A Normal [facility] Comment on above: Performed By: #### 3 4532-2 ####BHANU Treviño (01853)[facility] ([facility])[address] [place] [address] Blood group antibody screen Ql Negative [facility] Comment on above: Performed By: #### 3 4532-2 ####BHANU Treviño (35542)[facility] ([facility])[address] [place] [address] D Ag Ql (Bld) Positive [facility] Comment on above: Performed By: #### 3 4532-2 ####BHANU Treviño (85747)[facility] ([facility])[address]000 [place] [address] CBC panel Auto (Bld)on 02-13 Erythrocyte distribution width (RBC) [Ratio] 20.1 % High 11.5-14.5 [facility] Comment on above: Performed By: #### 5 8410-2 ####BHANU Treviño (69341)[facility] ([facility])35972 [place] [address] Hematocrit (Bld) [Volume fraction] 23.1 % Low 41.0-52.0 [facility] Comment on above: Performed By: #### 5 8410-2 ####BHANU Treviño (97714)[facility] ([facility])84152 [place] [address] Hemoglobin (Bld) [Mass/Vol] 7.4 g/dL Low 13.5-17.5 [facility] Comment on above: Performed By: #### 5 8410-2 ####BHANU Treviño (12502)[facility] ([facility])[address] [place] [address] 22043 MCH (RBC) [Entitic mass] 24.5 pg Low 26.0-34.0 [facility] Comment on above: Performed By: #### 5 8410-2 ####BHANU Treviño (78901)[facility] ([facility])[address] [place] [address] 81099 MCHC (RBC) [Mass/Vol] 32.0 g/dL Normal 32.0-36.0 [facility] Comment on above: Performed By: #### 5 8410-2 ####BHANU Treviño (80096)[facility] ([facility])[address] [place] [address] 92777 MCV (RBC) [Entitic vol] 77 fL Low 80-[address] [facility] Comment on above: Performed By: #### 5 8410-2 ####BHANU Treviño (78083)[facility] ([facility])[id number] [place] [address] 06288 Nucleated RBC/100 WBC (Bld) [Ratio] 0.0 /100 WBCs Normal 0.0-0.0 [facility] Comment on above: Performed By: #### 5 8410-2 ####BHANU Treviño (50229)[facility] ([facility])81310 [place] [address] Platelets (Bld) [#/Vol] 664 x10*3/uL High 150-450 [facility] Comment on above: Performed By: #### 5 8410-2 ####BHANU Treviño (13192)[facility] ([facility])[address] [place] [address] RBC (Bld) [#/Vol] 3.02 x10*6/uL Low 4.50-5.90 [facility] Comment on above: Performed By: #### 5 8410-2 ####BHANU Treviño ([id number])[facility] ([facility])[address] [place] [address] WBC (Bld) [#/Vol] 9.9 x10*3/uL Normal 4.4-11.[address] [facility] Comment on above: Performed By: #### 5 8410-2 ####BHANU Treviño ([id number])[facility] ([facility])[id number] [place] [id number] Magnesiumon 02-13-2025 Magnesium [Mass/Vol] 1.92 mg/dL Normal 1.60-2.40 [facility] Comment on above: Performed By: #### 1 9123-9 ####BHANU Treviño ([id number])[facility] ([facility])[address] [place] [address] PT and aPTT panel Coag (PPP) on 02-13-2025 aPTT Coag (PPP) [Time] 31 s Normal 26-36 [facility] Comment on above: Order Comment: The A PTT is no longer used for monitoring Unfractionated Heparin Therapy. For monitoring Heparin Therapy, use the Heparin Assay. Performed By: #### 3 4529-8 ####BHANU Treviño ([id number])[facility] ([facility])[address] [place] [address] INR Coag (PPP) [Relative time] 1.2 High 0.9-1.1 [facility] Comment on above: Order Comment: The A PTT is no longer used for monitoring Unfractionated Heparin Therapy. For monitoring Heparin Therapy, use the Heparin Assay. Performed By: #### 3 4529-8 ####BHANU Treviño ([id number])[facility] ([facility])[address] [place] [address] 48017 PT Coag (PPP) [Time] 12.9 s High 9.8-12.4 [facility] Comment on above: Order Comment: The A PTT is no longer used for monitoring Unfractionated Heparin Therapy. For monitoring Heparin Therapy, use the Heparin Assay. Performed By: #### 3 4529-8 ####BHANU Treviño (36550)[facility] ([facility])[address] [place] [address] 01645 CBC panel Auto (Bld)on 02-12 Erythrocyte distribution width (RBC) [Ratio] 19.8 % High 11.5-14.5 [facility] Comment on above: Performed By: #### 5 8410-2 ####BHANU Treviño ([id number])[facility] ([facility])[address] [place] [address] 22857 Hematocrit (Bld) [Volume fraction] 22.9 % Low 41.0-52.0 [facility] Comment on above: Performed By: #### 5 8410-2 ####BHANU Treviño ([id number])[facility] ([facility])[address] [place] [address] 57602 Hemoglobin (Bld) [Mass/Vol] 7.4 g/dL Low 13.5-17.5 [facility] Comment on above: Performed By: #### 5 8410-2 ####BHANU Treviño (85607)[facility] ([facility])[address] [place] [address] 25597 MCH (RBC) [Entitic mass] 24.6 pg Low 26.0-34.0 [facility] Comment on above: Performed By: #### 5 8410-2 ####BHANU Treviño ([id number])[facility] ([facility])[address] [place] [address] MCHC (RBC) [Mass/Vol] 32.3 g/dL Normal 32.0-36.0 [facility] Comment on above: Performed By: #### 5 8410-2 ####BHANU Treviño (84393)[facility] ([facility])[address] [place] [address] MCV (RBC) [Entitic vol] 76 fL Low 80-[address] [facility] Comment on above: Performed By: #### 5 8410-2 ####BHANU Treviño ([id number])[facility] ([facility])[address] [place] [address] 32467 Nucleated RBC/100 WBC (Bld) [Ratio] 0.0 /100 WBCs Normal 0.0-0.0 [facility] Comment on above: Performed By: #### 5 8410-2 ####BHANU Treviño ([id number])[facility] ([facility])[address] [place] [address] 07552 Platelets (Bld) [#/Vol] 664 x10*3/uL High 150-450 [facility] Comment on above: Performed By: #### 5 8410-2 ####BHANU Treviño ([id number])[facility] ([facility])[address] [place] [address] 03835 RBC (Bld) [#/Vol] 3.01 x10*6/uL Low 4.50-5.90 [facility] Comment on above: Performed By: #### 5 8410-2 ####BHANU Treviño ([id number])[facility])[address] [place] [address] WBC (Bld) [#/Vol] 9.2 x10*3/uL Normal 4.4-11.[address] [facility] Comment on above: Performed By: #### 5 8410-2 ####BHANU Treviño (96501)[facility])[address] [place] [address] 73714 Comprehensive metabolic 2000 panelon 02-12-2025 Albumin BCP dye [Mass/Vol] 2.6 g/dL Low 3.4-5.0 [facility] Comment on above: Performed By: #### 2 4323-8 ####BHANU Treviño ([id number])[facility])[address] [place] [address] ALP [Catalytic activity/Vol] 107 U/L Normal 33-120 [facility] Comment on above: Performed By: #### 2 4323-8 ####BHANU Treviño ([id number])[facility])[address] [place] [address] ALT With P-5'-P [Catalytic activity/Vol] 15 U/L Normal 10-52 [facility] Comment on above: Result Comment: Sydni ents treated with Sulfasalazine may generate falsely decreased results for ALT. Performed By: #### 2 4323-8 ####BHANU Treviño ([id number])[facility])[address] [place] [address] Anion gap [Moles/Vol] 14 mmol/L Normal 10-20 [facility] Comment on above: Performed By: #### 2 4323-8 ####BHANU Treviño (25625)[facility])[address] [place] [address] AST With P-5'-P [Catalytic activity/Vol] 14 U/L Normal 9-39 [facility] Comment on above: Performed By: #### 2 4323-8 ####BHANU Treviño (55570)[facility])[address] [place] [address] Bilirubin [Mass/Vol] 0.3 mg/dL Normal 0.0-1.2 [facility] Comment on above: Performed By: #### 2 4323-8 ####BHANU Treviño (54072)[facility])[address] [place] [address] Calcium [Mass/Vol] 8.4 mg/dL Low 8.6-10.6 [facility] Comment on above: Performed By: #### 2 4323-8 ####BHANU Treviño (43554)[facility])[address] [place] [address] Chloride [Moles/Vol] 101 mmol/L Normal 98-107 [facility] Comment on above: Performed By: #### 2 4323-8 ####BHANU GREGORY L ([id number])[facility])[address] [place] [address] CO2 [Moles/Vol] 28 mmol/L Normal 21-32 [facility] Comment on above: Performed By: #### 2 4323-8 ####BHANU Treviño (15735)[facility])[address] [place] [address] Creatinine [Mass/Vol] 1.08 mg/dL Normal 0.50-1.30 [facility] Comment on above: Performed By: #### 2 4323-8 ####BHANU Treviño (39592)[facility])[address] [place] [address] Glomerular filtration rate/1.73 sq M.predicted 83 mL/min/1.73m*2 Normal >[address] [facility] Comment on above: Result Comment: Calc ulations of estimated GFR are performed using the 2020 CKD-EPI Study Refit equation without the race variable for the IDMS-Traceable creatinine methods.https://jasn.asnjournals.org/content/ /ASN.9644045679 Performed By: #### 2 4323-8 ####BHANU Treviño ([id number])[facility])[address] [place] [address] Glucose [Mass/Vol] 114 mg/dL High 74-99 [facility] Comment on above: Performed By: #### 2 4323-8 ####BHANU Treviño (64148)[facility])[address] [place] [address] Potassium [Moles/Vol] 5.2 mmol/L Normal 3.5-5.3 [facility] Comment on above: Performed By: #### 2 4323-8 ####BHANU Treviño (05629)[facility])[address] [place] [address] Protein [Mass/Vol] 7.1 g/dL Normal 6.4-8.2 [facility] Comment on above: Performed By: #### 2 4323-8 ####BHANU Treviño ([id number])[facility])[address] [place] [address] Sodium [Moles/Vol] 138 mmol/L Normal 136-145 [facility] Comment on above: Performed By: #### 2 4323-8 ####BHANU Treviño (97213)[facility])[address] [place] [address] Urea nitrogen [Mass/Vol] 14 mg/dL Normal 6-23 [facility] Comment on above: Performed By: #### 2 4323-8 ####BHANU Treviño (25640)[facility])[address] [place] [address] Magnesiumon 02-12-2025 Magnesium [Mass/Vol] 2.03 mg/dL Normal 1.60-2.40 [facility] Comment on above: Performed By: #### 1 9123-9 ####BHANU Treviño ([id number])[facility])[address] [place] [address] Basic metabolic 2000 panelon 02-11-2025 Anion gap [Moles/Vol] 14 mmol/L Normal 10-20 [facility] Comment on above: Performed By: #### 2 4321-2 ####BHANU Treviño (73082)[facility])[address] [place] [address] Calcium [Mass/Vol] 9.1 mg/dL Normal 8.6-10.6 [facility] Comment on above: Performed By: #### 2 4321-2 ####BHANU Treviño (31609)[facility])[address] [place] [address] Chloride [Moles/Vol] 100 mmol/L Normal 98-107 [facility] Comment on above: Performed By: #### 2 4321-2 ####BHANU Treviño (47719)[facility])[address] [place] [address] CO2 [Moles/Vol] 29 mmol/L Normal 21-32 [facility] Comment on above: Performed By: #### 2 4321-2 ####BHANU Treviño (45580)[facility])[address] [place] [address] Creatinine [Mass/Vol] 1.13 mg/dL Normal 0.50-1.30 [facility] Comment on above: Performed By: #### 2 4321-2 ####BHANU GREGORY L (54596)[facility])[address] [place] [address] Glomerular filtration rate/1.73 sq M.predicted 79 mL/min/1.73m*2 Normal >[address] [facility] Comment on above: Result Comment: Calc ulations of estimated GFR are performed using the 2020 CKD-EPI Study Refit equation without the race variable for the IDMS-Traceable creatinine methods.https://jasn.asnjournals.org/content/ /ASN.8116920006 Performed By: #### 2 4321-2 ####BHANU Treviño ([id number])[facility])[address] [place] [address] Glucose [Mass/Vol] 108 mg/dL High 74-99 [facility] Comment on above: Performed By: #### 2 4321-2 ####BHANU Treviño (77081)[facility])[address] [place] [address] Potassium [Moles/Vol] 4.6 mmol/L Normal 3.5-5.3 [facility] Comment on above: Performed By: #### 2 4321-2 ####BHANU Treviño (05487)[facility])[address] [place] [address] 87222 Sodium [Moles/Vol] 138 mmol/L Normal 136-145 [facility] Comment on above: Performed By: #### 2 4321-2 ####BHANU Treviño (80611)[facility])[address] [place] [address] 70825 Urea nitrogen [Mass/Vol] 16 mg/dL Normal 6-23 [facility] Comment on above: Performed By: #### 2 4321-2 ####BHANU Treviño (74221)[facility])[address] [place] [address] 32457 CBC panel Auto (Bld)on 02-11 Erythrocyte distribution width (RBC) [Ratio] 20.0 % High 11.5-14.5 [facility] Comment on above: Performed By: #### 5 8410-2 ####BHANU Treviño (16081)[facility])[address] [place] [address] 18850 Hematocrit (Bld) [Volume fraction] 24.7 % Low 41.0-52.0 [facility] Comment on above: Performed By: #### 5 8410-2 ####BHANU Treviño (28135)[facility])[address] [place] [address] 20689 Hemoglobin (Bld) [Mass/Vol] 8.1 g/dL Low 13.5-17.5 [facility] Comment on above: Performed By: #### 5 8410-2 ####BHANU Treviño (98725)[facility])[address] [place] [address] MCH (RBC) [Entitic mass] 25.1 pg Low 26.0-34.0 [facility] Comment on above: Performed By: #### 5 8410-2 ####BHANU Treviño (01298)[facility])[address] [place] [address] MCHC (RBC) [Mass/Vol] 32.8 g/dL Normal 32.0-36.0 [facility] Comment on above: Performed By: #### 5 8410-2 ####BHANU Treviño (23391)[facility])[address] [place] [address] MCV (RBC) [Entitic vol] 77 fL Low 80-[address] [facility] Comment on above: Performed By: #### 5 8410-2 ####BHANU Treviño (29091)[facility])[address]162 [place] [address] Nucleated RBC/100 WBC (Bld) [Ratio] 0.0 /100 WBCs Normal 0.0-0.0 [facility] Comment on above: Performed By: #### 5 8410-2 ####BHANU Treviño (22152)[facility])[address] [place] [address] Platelets (Bld) [#/Vol] 667 x10*3/uL High 150-450 [facility] Comment on above: Performed By: #### 5 8410-2 ####BHANU Treviño ([id number])[facility])[address]43 [place] [address] RBC (Bld) [#/Vol] 3.23 x10*6/uL Low 4.50-5.90 [facility] Comment on above: Performed By: #### 5 8410-2 ####BHANU Treviño (31727)[facility])[address]78 [place] [address] WBC (Bld) [#/Vol] 11.6 x10*3/uL High 4.4-11.3 [facility] Comment on above: Performed By: #### 5 8410-2 ####BHANU Treviño (89714)[facility])[address] [place] [address] Magnesiumon 02-11-2025 Magnesium [Mass/Vol] 1.70 mg/dL Normal 1.60-2.40 [facility] Comment on above: Performed By: #### 1 9123-9 ####BHANU Treviño (26529)[facility])[address] [place] [address] 93434 PT and aPTT panel Coag (PPP) on 02-11-2025 aPTT Coag (PPP) [Time] 35 s Normal 26-36 [facility] Comment on above: Order Comment: The A PTT is no longer used for monitoring Unfractionated Heparin Therapy. For monitoring Heparin Therapy, use the Heparin Assay. Performed By: #### 3 4529-8 ####BHANU Treviño (36025)[facility])[address] [place] [address] 23682 INR Coag (PPP) [Relative time] 1.3 High 0.9-1.1 [facility] Comment on above: Order Comment: The A PTT is no longer used for monitoring Unfractionated Heparin Therapy. For monitoring Heparin Therapy, use the Heparin Assay. Performed By: #### 3 4529-8 ####BHANU Treviño (43221)[facility])[address]30 [place] [address] PT Coag (PPP) [Time] 14.2 s High 9.8-12.4 [facility] Comment on above: Order Comment: The A PTT is no longer used for monitoring Unfractionated Heparin Therapy. For monitoring Heparin Therapy, use the Heparin Assay. Performed By: #### 3 4529-8 ####BHANU Treviño (21390)[facility])[address] [place] [address] 99956 Blood type and Indirect anti body screen panel (Bld)on 02-10-2025 ABO group Nom (Bld) A Normal [facility] Comment on above: Performed By: #### 3 4532-2 ####BHANU Treviño (26646)[facility])[address] [place] [address] 82586 Blood group antibody screen Ql Negative [facility] Comment on above: Performed By: #### 3 4532-2 ####BHANU Treviño (56965)[facility] ([facility])[address] [place] [address] 86607 D Ag Ql (Bld) Positive [facility] Comment on above: Performed By: #### 3 4532-2 ####BHANU Treviño (26956)[facility] ([facility])[address] [place] [address] 066[address] CBC panel Auto (Bld)on 02-10 Erythrocyte distribution width (RBC) [Ratio] 20.0 % High 11.5-14.5 [facility] Comment on above: Performed By: #### 5 8410-2 ####BHANU Treviño (78054)[facility] ([facility])[address] [place] [address] 61805 Hematocrit (Bld) [Volume fraction] 24.6 % Low 41.0-52.0 [facility] Comment on above: Performed By: #### 5 8410-2 ####BHANU Treviño (18034)[facility] ([facility])[address] [place] [address] 32724 Hemoglobin (Bld) [Mass/Vol] 8.0 g/dL Low 13.5-17.5 [facility] Comment on above: Performed By: #### 5 8410-2 ####BHANU Treviño (44571)[facility])[address] [place] [address] 94685 MCH (RBC) [Entitic mass] 25.0 pg Low 26.0-34.0 [facility] Comment on above: Performed By: #### 5 8410-2 ####BHANU Treviño (72488)[facility])[address]18 [place] [address] MCHC (RBC) [Mass/Vol] 32.5 g/dL Normal 32.0-36.0 [facility] Comment on above: Performed By: #### 5 8410-2 ####BHANU Treviño (34847)[facility])[address]994 [place] [address] MCV (RBC) [Entitic vol] 77 fL Low 80-[address] [facility] Comment on above: Performed By: #### 5 8410-2 ####BHANU Treviño (44030)[facility])[address] [place] [address] 26610 Nucleated RBC/100 WBC (Bld) [Ratio] 0.0 /100 WBCs Normal 0.0-0.0 [facility] Comment on above: Performed By: #### 5 8410-2 ####BHANU Treviño (73537)[facility])[address] [place] [address] 83043 Platelets (Bld) [#/Vol] 593 x10*3/uL High 150-450 [facility] Comment on above: Performed By: #### 5 8410-2 ####BHANU Treviño (07223)[facility])[address]10 [place] [address] RBC (Bld) [#/Vol] 3.20 x10*6/uL Low 4.50-5.90 [facility] Comment on above: Performed By: #### 5 8410-2 ####BHANU Treviño (30085)[facility])[address]78 [place] [address] WBC (Bld) [#/Vol] 10.6 x10*3/uL Normal 4.4-11.3 [facility] Comment on above: Performed By: #### 5 8410-2 ####BHANU Treviño (55125)[facility])[address]293 [place] [address] Basic metabolic 2000 panelon 02-08-2025 Anion gap [Moles/Vol] 13 mmol/L Normal 10-20 [facility] Comment on above: Performed By: #### 2 4321-2 ####BHANU Treviño (96254)[facility])[address]35 [place] [address] Calcium [Mass/Vol] 8.3 mg/dL Low 8.6-10.6 [facility] Comment on above: Performed By: #### 2 4321-2 ####BHANU Treviño (84209)[facility])[address]69 [place] [address] Chloride [Moles/Vol] 105 mmol/L Normal 98-107 [facility] Comment on above: Performed By: #### 2 4321-2 ####BHANU Treviño (83122)[facility])[address] [place] [address] CO2 [Moles/Vol] 27 mmol/L Normal 21-32 [facility] Comment on above: Performed By: #### 2 4321-2 ####BHANU Treviño (71450)[facility])[address]230 [place] [address] Creatinine [Mass/Vol] 1.11 mg/dL Normal 0.50-1.30 [facility] Comment on above: Performed By: #### 2 4321-2 ####BHANU Treviño (67352)[facility])[address]707 [place] [address] Glomerular filtration rate/1.73 sq M.predicted 80 mL/min/1.73m*2 Normal >[address] [facility] Comment on above: Result Comment: Calc ulations of estimated GFR are performed using the 2020 CKD-EPI Study Refit equation without the race variable for the IDMS-Traceable creatinine methods.https://jasn.asnjournals.org/content/ /ASN.5356120214 Performed By: #### 2 4321-2 ####BHANU Treviño ([id number])[facility])[address] [place] [address] Glucose [Mass/Vol] 124 mg/dL High 74-99 [facility] Comment on above: Performed By: #### 2 4321-2 ####BHANU Treviño (28284)[facility])[address]70 [place] [address] Potassium [Moles/Vol] 4.8 mmol/L Normal 3.5-5.3 [facility] Comment on above: Performed By: #### 2 4321-2 ####BHANU GREGORY L (25045)[facility])[address]74 [place] [address] Sodium [Moles/Vol] 140 mmol/L Normal 136-145 [facility] Comment on above: Performed By: #### 2 4321-2 ####BHANU GREGORY L (46072)[facility])[address]756 [place] [address] Urea nitrogen [Mass/Vol] 16 mg/dL Normal 6-23 [facility] Comment on above: Performed By: #### 2 4321-2 ####BHANU GREGORY L (18655)[facility])[address]89 [place] [address] CBC panel Auto (Bld)on 02-08 Erythrocyte distribution width (RBC) [Ratio] 20.5 % High 11.5-14.5 [facility] Comment on above: Performed By: #### 5 8410-2 ####BHANU GREGORY L (76083)[facility])[address]43 [place] [address] Hematocrit (Bld) [Volume fraction] 25.2 % Low 41.0-52.0 [facility] Comment on above: Performed By: #### 5 8410-2 ####BHANU Treviño (38924)[facility])[address]886 [place] [address] Hemoglobin (Bld) [Mass/Vol] 8.0 g/dL Low 13.5-17.5 [facility] Comment on above: Performed By: #### 5 8410-2 ####BHANU Treviño (16959)[facility])[address] [place] [address] 21381 MCH (RBC) [Entitic mass] 25.1 pg Low 26.0-34.0 [facility] Comment on above: Performed By: #### 5 8410-2 ####BHANU Treviño (60039)[facility])[address] [place] [address] 85745 MCHC (RBC) [Mass/Vol] 31.7 g/dL Low 32.0-36.0 [facility] Comment on above: Performed By: #### 5 8410-2 ####BHANU Treviño (78452)[facility])[address] [place] [address] 11073 MCV (RBC) [Entitic vol] 79 fL Low 80-[address] [facility] Comment on above: Performed By: #### 5 8410-2 ####BHANU Treviño (96556)[facility])[address] [place] [address] 16467 Nucleated RBC/100 WBC (Bld) [Ratio] 0.0 /100 WBCs Normal 0.0-0.0 [facility] Comment on above: Performed By: #### 5 8410-2 ####BHANU Treviño (59438)[facility])[address]69 [place] [address] Platelets (Bld) [#/Vol] 463 x10*3/uL High 150-450 [facility] Comment on above: Performed By: #### 5 8410-2 ####BHANU Treviño (80297)[facility])[address]21 [place] [address] RBC (Bld) [#/Vol] 3.19 x10*6/uL Low 4.50-5.90 [facility] Comment on above: Performed By: #### 5 8410-2 ####BHANU Treviño (55285)[facility])[address]32 [place] [address] WBC (Bld) [#/Vol] 10.0 x10*3/uL Normal 4.4-11.3 [facility] Comment on above: Performed By: #### 5 8410-2 ####BHANU Treviño (81411)[facility])[address]49 [place] [address] Basic metabolic 2000 panelon 02-07-2025 Anion gap [Moles/Vol] 15 mmol/L Normal 10-20 [facility] Comment on above: Performed By: #### 2 4321-2 ####BHANU Treviño (86871)[facility])[address]20 [place] [address] Calcium [Mass/Vol] 8.4 mg/dL Low 8.6-10.6 [facility] Comment on above: Performed By: #### 2 4321-2 ####BHANU Treviño (87399)[facility])[address]18 [place] [address] Chloride [Moles/Vol] 106 mmol/L Normal 98-107 [facility] Comment on above: Performed By: #### 2 4321-2 ####BHANU Treviño ([id number])[facility] ([facility])[address] [place] [address] CO2 [Moles/Vol] 24 mmol/L Normal 21-32 [facility] Comment on above: Performed By: #### 2 4321-2 ####BHANU GREGORY L ([id number])[facility] ([facility])[address] [place] [address] Creatinine [Mass/Vol] 1.09 mg/dL Normal 0.50-1.30 [facility] Comment on above: Performed By: #### 2 4321-2 ####BHANU GREGORY L ([id number])[facility] ([facility])[address] [place] [address] Glomerular filtration rate/1.73 sq M.predicted 82 mL/min/1.73m*2 Normal >[address] [facility] Comment on above: Result Comment: Calc ulations of estimated GFR are performed using the 2020 CKD-EPI Study Refit equation without the race variable for the IDMS-Traceable creatinine methods.https://jasn.asnjournals.org/content/ /ASN.7328779121 Performed By: #### 2 4321-2 ####BHANU GREGORY L ([id number])[facility] ([facility])[address] [place] [address] Glucose [Mass/Vol] 110 mg/dL High 74-99 [facility] Comment on above: Performed By: #### 2 4321-2 ####BHANU GREGORY L ([id number])[facility] [facility])[address] [place] [address] Potassium [Moles/Vol] 4.7 mmol/L Normal 3.5-5.3 [facility] Comment on above: Performed By: #### 2 4321-2 ####BHANU GREGORY L ([id number])[facility] ([facility])[address] [place] [address] Sodium [Moles/Vol] 140 mmol/L Normal 136-145 [facility] Comment on above: Performed By: #### 2 4321-2 ####BHANU GREGORY L (55081)[facility] ([facility])[address] [place] [address] Urea nitrogen [Mass/Vol] 18 mg/dL Normal - [facility] Comment on above: Performed By: #### 2 4321-2 ####BHANU Treviño (82812)[facility] ([facility])[id number] [place] [address] 88597 CBC panel Auto (Bld)on 02-07 Erythrocyte distribution width (RBC) [Ratio] 20.4 % High 11.5-14.5 [facility] Comment on above: Performed By: #### 5 8410-2 ####BHANU Treviño ([id number])[facility] ([facility])[address] [place] [address]27 Hematocrit (Bld) [Volume fraction] 27.2 % Low 41.0-52.0 [facility] Comment on above: Performed By: #### 5 8410-2 ####BHANU Treviño ([id number])[facility] ([facility])[address] [place] [address] 25941 Hemoglobin (Bld) [Mass/Vol] 9.0 g/dL Low 13.5-17.5 [facility] Comment on above: Performed By: #### 5 8410-2 ####BHANU Treviño (88546)[facility] ([facility])[address] [place] [address] 17674 MCH (RBC) [Entitic mass] 25.6 pg Low 26.0-34.0 [facility] Comment on above: Performed By: #### 5 8410-2 ####BHANU Treviño ([id number])[facility] ([facility])[address] [place] [address] 10640 MCHC (RBC) [Mass/Vol] 33.1 g/dL Normal 32.0-36.0 [facility] Comment on above: Performed By: #### 5 8410-2 ####BHANU Treviño (55572)[facility] ([facility])[address] [place] [address] MCV (RBC) [Entitic vol] 77 fL Low 80-[address] [facility] Comment on above: Performed By: #### 5 8410-2 ####BHANU Treviño ([id number])[facility] ([facility])[address] [place] [address] 98982 Nucleated RBC/100 WBC (Bld) [Ratio] 0.0 /100 WBCs Normal 0.0-0.0 [facility] Comment on above: Performed By: #### 5 8410-2 ####BHANU Treviño ([id number])[facility] ([facility])[address] [place] [address] 67236 Platelets (Bld) [#/Vol] 483 x10*3/uL High 150-450 [facility] Comment on above: Performed By: #### 5 8410-2 ####BHANU Treviño (83531)[facility] ([facility])[address] [place] [address] 52269 RBC (Bld) [#/Vol] 3.52 x10*6/uL Low 4.50-5.90 [facility] Comment on above: Performed By: #### 5 8410-2 ####BHANU Treviño (55461)[facility])[address] [place] [address] 18475 WBC (Bld) [#/Vol] 9.2 x10*3/uL Normal 4.4-11.[address] [facility] Comment on above: Performed By: #### 5 8410-2 ####BHANU Treviño ([id number])[facility])[address] [place] [address] 20256 Magnesiumon 02-07-2025 Magnesium [Mass/Vol] 2.05 mg/dL Normal 1.60-2.40 [facility] Comment on above: Performed By: #### 1 9123-9 ####BHANU Treviño (50156)[facility] ([facility])[address] [place] [address] 59057 Basic metabolic 2000 panelon 02-06-2025 Anion gap [Moles/Vol] 12 mmol/L Normal 10-20 [facility] Comment on above: Performed By: #### 2 4321-2 ####BHANU GREGORY L ([id number])[facility])[address] [place] [address] Calcium [Mass/Vol] 8.1 mg/dL Low 8.6-10.6 [facility] Comment on above: Performed By: #### 2 4321-2 ####BHANU GREGORY L ([id number])[facility])[address] [place] [address] Chloride [Moles/Vol] 106 mmol/L Normal 98-107 [facility] Comment on above: Performed By: #### 2 4321-2 ####BHANU FLEMINGMOTZER L ([id number])[facility])[address] [place] [address] CO2 [Moles/Vol] 28 mmol/L Normal 21-32 [facility] Comment on above: Performed By: #### 2 4321-2 ####BHANU GREGORY L (50207)[facility])[address] [place] [address] Creatinine [Mass/Vol] 1.22 mg/dL Normal 0.50-1.30 [facility] Comment on above: Performed By: #### 2 4321-2 ####BHANU GREGORY L (08533)[facility])[address] [place] [address] Glomerular filtration rate/1.73 sq M.predicted 72 mL/min/1.73m*2 Normal >[address] [facility] Comment on above: Result Comment: Calc ulations of estimated GFR are performed using the 2020 CKD-EPI Study Refit equation without the race variable for the IDMS-Traceable creatinine methods.https://jasn.asnjournals.org/content/ /ASN.7156522946 Performed By: #### 2 4321-2 ####BHANU Treviño ([id number])[facility])[address] [place] [address] Glucose [Mass/Vol] 98 mg/dL Normal 74-99 [facility] Comment on above: Performed By: #### 2 4321-2 ####BHANU GREGORY L (56407)[facility])[address] [place] [address] Potassium [Moles/Vol] 4.5 mmol/L Normal 3.5-5.3 [facility] Comment on above: Performed By: #### 2 4321-2 ####BHANU Treviño ([id number])[facility])[address] [place] [address] 330[address] Sodium [Moles/Vol] 141 mmol/L Normal 136-145 [facility] Comment on above: Performed By: #### 2 4321-2 ####BHANU GREGORY L (11831)[facility])[address] [place] [address] 32917 Urea nitrogen [Mass/Vol] 15 mg/dL Normal 6-23 [facility] Comment on above: Performed By: #### 2 4321-2 ####BHANU Treviño (69761)[facility])[address] [place] [address] 92758 CBC panel Auto (Bld)on 02-06 Erythrocyte distribution width (RBC) [Ratio] 20.2 % High 11.5-14.5 [facility] Comment on above: Performed By: #### 5 8410-2 ####BHANU GREGORY L (21159)[facility])[address] [place] [address] 34052 Hematocrit (Bld) [Volume fraction] 26.1 % Low 41.0-52.0 [facility] Comment on above: Performed By: #### 5 8410-2 ####BHANU GREGORY L (80623)[facility])[address] [place] [address] Hemoglobin (Bld) [Mass/Vol] 8.4 g/dL Low 13.5-17.5 [facility] Comment on above: Performed By: #### 5 8410-2 ####BHANU Treviño (25681)[facility])[address] [place] [address] MCH (RBC) [Entitic mass] 25.1 pg Low 26.0-34.0 [facility] Comment on above: Performed By: #### 5 8410-2 ####BHANU Treviño ([id number])[facility])[address] [place] [address] MCHC (RBC) [Mass/Vol] 32.2 g/dL Normal 32.0-36.0 [facility] Comment on above: Performed By: #### 5 8410-2 ####BHANU Treviño (43301)[facility])[address] [place] [address] 39573 MCV (RBC) [Entitic vol] 78 fL Low 80-[address] [facility] Comment on above: Performed By: #### 5 8410-2 ####BHANU Treviño (94315)[facility])[address] [place] [address] 38154 Nucleated RBC/100 WBC (Bld) [Ratio] 0.0 /100 WBCs Normal 0.0-0.0 [facility] Comment on above: Performed By: #### 5 8410-2 ####BHANU Treviño (48152)[facility])[address] [place] [address] Platelets (Bld) [#/Vol] 426 x10*3/uL Normal 150-450 [facility] Comment on above: Performed By: #### 5 8410-2 ####BHANU Treviño (84413)[facility])[address]380 [place] [address] RBC (Bld) [#/Vol] 3.34 x10*6/uL Low 4.50-5.90 [facility] Comment on above: Performed By: #### 5 8410-2 ####BHANU Treviño (45493)[facility])[address] [place] [address] 85221 WBC (Bld) [#/Vol] 9.4 x10*3/uL Normal 4.4-11.[address] [facility] Comment on above: Performed By: #### 5 8410-2 ####BHANU Treviño ([id number])[facility])[address] [place] [address] 91006 Magnesiumon 02-06-2025 Magnesium [Mass/Vol] 2.21 mg/dL Normal 1.60-2.40 [facility] Comment on above: Performed By: #### 1 9123-9 ####BHANU Treviño (09008)[facility])[address] [place] [address] 59711 CBC panel Auto (Bld)on 02-05 Erythrocyte distribution width (RBC) [Ratio] 19.9 % High 11.5-14.5 [facility] Comment on above: Performed By: #### 5 8410-2 ####BHANU Treviño (83149)[facility])[address] [place] [address] 61011 Hematocrit (Bld) [Volume fraction] 26.4 % Low 41.0-52.0 [facility] Comment on above: Performed By: #### 5 8410-2 ####BHANU Treviño (94405)[facility])[address] [place] [address] 57164 Hemoglobin (Bld) [Mass/Vol] 8.4 g/dL Low 13.5-17.5 [facility] Comment on above: Performed By: #### 5 8410-2 ####BHANU Treviño (23154)[facility])[address] [place] [address] 51378 MCH (RBC) [Entitic mass] 24.6 pg Low 26.0-34.0 [facility] Comment on above: Performed By: #### 5 8410-2 ####BHANU Treviño (35294)[facility])[address] [place] [address] MCHC (RBC) [Mass/Vol] 31.8 g/dL Low 32.0-36.0 [facility] Comment on above: Performed By: #### 5 8410-2 ####BHANU Treviño (26992)[facility])[address]674 [place] [address] MCV (RBC) [Entitic vol] 77 fL Low 80-[address] [facility] Comment on above: Performed By: #### 5 8410-2 ####BHANU Treviño (84162)[facility])[address]71 [place] [address] Nucleated RBC/100 WBC (Bld) [Ratio] 0.0 /100 WBCs Normal 0.0-0.0 [facility] Comment on above: Performed By: #### 5 8410-2 ####BHANU Treviño (11065)[facility])[address]21 [place] [address] Platelets (Bld) [#/Vol] 399 x10*3/uL Normal 150-450 [facility] Comment on above: Performed By: #### 5 8410-2 ####BHANU Treviño ([id number])[facility])[address]304 [place] [address] RBC (Bld) [#/Vol] 3.41 x10*6/uL Low 4.50-5.90 [facility] Comment on above: Performed By: #### 5 8410-2 ####HBANU Treviño (35059)[facility])[address]684 [place] [address] WBC (Bld) [#/Vol] 10.1 x10*3/uL Normal 4.4-11.3 [facility] Comment on above: Performed By: #### 5 8410-2 ####BHANU Treviño (47244)[facility])[address]1007 [place] [address] Magnesiumon 02-05-2025 Magnesium [Mass/Vol] 1.87 mg/dL Normal 1.60-2.40 [facility] Comment on above: Performed By: #### 1 9123-9 ####BHANU Treviño (95586)[facility])[address]17 [place] [address] Renal function 2000 panelon 02-05-2025 Albumin BCP dye [Mass/Vol] 2.6 g/dL Low 3.4-5.0 [facility] Comment on above: Performed By: #### 2 4362-6 ####BHANU Treviño (13136)[facility])[address]12 [place] [address] Anion gap [Moles/Vol] 13 mmol/L Normal 10-20 [facility] Comment on above: Performed By: #### 2 4362-6 ####BHANU Treviño (71328)[facility])[address]22 [place] [address] Calcium [Mass/Vol] 7.7 mg/dL Low 8.6-10.6 [facility] Comment on above: Performed By: #### 2 4362-6 ####BHANU Treviño (04557)[facility])[address]240 [place] [address] Chloride [Moles/Vol] 107 mmol/L Normal 98-107 [facility] Comment on above: Performed By: #### 2 4362-6 ####BHANU Treviño (25658)[facility])[address]33 [place] [address] CO2 [Moles/Vol] 26 mmol/L Normal 21-32 [facility] Comment on above: Performed By: #### 2 4362-6 ####BHANU Treviño (86837)[facility])[address]175 [place] [address] Creatinine [Mass/Vol] 1.02 mg/dL Normal 0.50-1.30 [facility] Comment on above: Performed By: #### 2 4362-6 ####BHANU Treviño (95692)[facility])[address]115 [place] [address] Glomerular filtration rate/1.73 sq M.predicted 89 mL/min/1.73m*2 Normal >[address] [facility] Comment on above: Result Comment: Calc ulations of estimated GFR are performed using the 2020 CKD-EPI Study Refit equation without the race variable for the IDMS-Traceable creatinine methods.https://jasn.asnjournals.org/content/ /ASN.7022623871 Performed By: #### 2 4362-6 ####BHANU Treviño (61738)[facility])[address]337 [place] [address] Glucose [Mass/Vol] 94 mg/dL Normal 74-99 [facility] Comment on above: Performed By: #### 2 4362-6 ####BHANU Treviño (20476)[facility])[address]14 [place] [address] Phosphate [Mass/Vol] 2.8 mg/dL Normal 2.5-4.9 [facility] Comment on above: Performed By: #### 2 4362-6 ####BHANU Treviño (03886)[facility])[address]29 [place] [address] Potassium [Moles/Vol] 4.4 mmol/L Normal 3.5-5.3 [facility] Comment on above: Performed By: #### 2 4362-6 ####BHANU Treviño (14104)[facility])[address] [place] [address] Sodium [Moles/Vol] 142 mmol/L Normal 136-145 [facility] Comment on above: Performed By: #### 2 4362-6 ####BHANU Treviño (54065)[facility])[address] [facility] [place] [address] Urea nitrogen [Mass/Vol] 13 mg/dL Normal 6-23 [facility] Comment on above: Performed By: #### 2 4362-6 ####BHANU Treviño (20682)[facility])[address]902 [place] [address] Bacteria identifiedon 2024 Bacteria identified Cx Nom (Unsp spec) Abnormal [facility] Comment on above: Performed By: #### 6 463-4 ####BHANU Treviño (20131)[facility])[address]696 [place] [address] Blood type and Indirect anti body screen panel (Bld)on 02-04-2025 ABO group Nom (Bld) A Normal [facility] Comment on above: Performed By: #### 3 4532-2 ####BHANU Treviño (75569)[facility])[address]242 [facility] [place] [address] Blood group antibody screen Ql Negative Normal [facility] Comment on above: Performed By: #### 3 4532-2 ####BHANU Treviño (59383)[facility] ([facility])[address]26 [facility] [address] D Ag Ql (Bld) Positive Normal [facility] Comment on above: Performed By: #### 3 4532-2 ####BHANU Treviño (29657)[facility] ([facility])[address]907 [facility] [place] [address] CBC panel Auto (Bld)on 02-04 Erythrocyte distribution width (RBC) [Ratio] 19.6 % High 11.5-14.5 [facility] Comment on above: Performed By: #### 5 8410-2 ####BHANU Treviño (04111)[facility])[address] [place] [address] 77606 Hematocrit (Bld) [Volume fraction] 28.8 % Low 41.0-52.0 [facility] Comment on above: Performed By: #### 5 8410-2 ####BHANU Treviño (85365)[facility])[address] [place] [address] 96989 Hemoglobin (Bld) [Mass/Vol] 9.1 g/dL Low 13.5-17.5 [facility] Comment on above: Performed By: #### 5 8410-2 ####BHANU Treviño (28099)[facility] ([facility])[address] [place] [address] 82157 MCH (RBC) [Entitic mass] 24.6 pg Low 26.0-34.0 [facility] Comment on above: Performed By: #### 5 8410-2 ####BHANU Treviño (01425)[facility])[address] [place] [address] 16466 MCHC (RBC) [Mass/Vol] 31.6 g/dL Low 32.0-36.0 [facility] Comment on above: Performed By: #### 5 8410-2 ####BHANU Treviño (70030)[facility])[address] [place] [address] 87210 MCV (RBC) [Entitic vol] 78 fL Low 80-[address] [facility] Comment on above: Performed By: #### 5 8410-2 ####BHANU Treviño ([id number])[facility])[address] [place] [address] 14299 Nucleated RBC/100 WBC (Bld) [Ratio] 0.0 /100 WBCs Normal 0.0-0.0 [facility] Comment on above: Performed By: #### 5 8410-2 ####BHANU Treviño (69696)[facility])[address] [place] [address] 19559 Platelets (Bld) [#/Vol] 430 x10*3/uL Normal 150-450 [facility] Comment on above: Performed By: #### 5 8410-2 ####BHANU Treviño (36600)[facility] ([facility])[address] [place] [address] 59381 RBC (Bld) [#/Vol] 3.70 x10*6/uL Low 4.50-5.90 [facility] Comment on above: Performed By: #### 5 8410-2 ####BHANU Treviño (55334)[facility])[address] [place] [address] 62727 WBC (Bld) [#/Vol] 10.7 x10*3/uL Normal 4.4-11.3 [facility] Comment on above: Performed By: #### 5 8410-2 ####BHANU Treviño (03708)[facility])[address] [place] [address] 10381 Fungus identifiedon 02-05-20 Fungus identified Cx Nom (Unsp spec) Abnormal [facility] Comment on above: Performed By: #### 5 80-1 ####BHANU Treviño ([id number])[facility])[address] [place] [address] 05737 Magnesiumon 02-04-2025 Magnesium [Mass/Vol] 1.84 mg/dL Normal 1.60-2.40 [facility] Comment on above: Performed By: #### 1 9123-9 ####BHANU Treviño (62491)[facility] ([facility])[address] [place] [address] 07846 PT and aPTT panel Coag (PPP) on 02-04-2025 aPTT Coag (PPP) [Time] 33 s Normal 26-36 [facility] Comment on above: Order Comment: The A PTT is no longer used for monitoring Unfractionated Heparin Therapy. For monitoring Heparin Therapy, use the Heparin Assay. Performed By: #### 3 4529-8 ####BHANU Treviño (79829)[facility])[address] [place] [address] 40980 INR Coag (PPP) [Relative time] 1.2 High 0.9-1.1 [facility] Comment on above: Order Comment: The A PTT is no longer used for monitoring Unfractionated Heparin Therapy. For monitoring Heparin Therapy, use the Heparin Assay. Performed By: #### 3 4529-8 ####BHANU Treviño (40958)[facility] ([facility])[address] [place] [address] 34088 PT Coag (PPP) [Time] 13.4 s High 9.8-12.4 [facility] Comment on above: Order Comment: The A PTT is no longer used for monitoring Unfractionated Heparin Therapy. For monitoring Heparin Therapy, use the Heparin Assay. Performed By: #### 3 4529-8 ####BHANU Treviño (56752)[facility])[address] [place] [address] 69229 Renal function 2000 panelon 02-04-2025 Albumin BCP dye [Mass/Vol] 2.5 g/dL Low 3.4-5.0 [facility] Comment on above: Performed By: #### 2 4362-6 ####BHANU Treviño (30305)[facility])[address] [place] [address] 82271 Anion gap [Moles/Vol] 11 mmol/L Normal 10-20 [facility] Comment on above: Performed By: #### 2 4362-6 ####BHANU Treviño (32897)[facility] ([facility])[address] [place] [address] 46148 Calcium [Mass/Vol] 8.2 mg/dL Low 8.6-10.6 [facility] Comment on above: Performed By: #### 2 4362-6 ####BHANU Treviño (84119)[facility] ([facility])[address]32 [place] [address] Chloride [Moles/Vol] 107 mmol/L Normal 98-107 [facility] Comment on above: Performed By: #### 2 4362-6 ####BHANU GREGORY L (65770)[facility])[address] [place] [address] CO2 [Moles/Vol] 28 mmol/L Normal 21-32 [facility] Comment on above: Performed By: #### 2 4362-6 ####BHANU Treviño (39787)[facility])[address]36 [place] [address] Creatinine [Mass/Vol] 1.23 mg/dL Normal 0.50-1.30 [facility] Comment on above: Performed By: #### 2 4362-6 ####BHANU Treviño (00771)[facility])41493 [place] [address] Glomerular filtration rate/1.73 sq M.predicted 71 mL/min/1.73m*2 Normal >[address] [facility] Comment on above: Result Comment: Calc ulations of estimated GFR are performed using the 2020 CKD-EPI Study Refit equation without the race variable for the IDMS-Traceable creatinine methods.https://jasn.asnjournals.org/content/ /ASN.3543244463 Performed By: #### 2 4362-6 ####BHANU Treviño ([id number])[facility])[address]41 [place] [address] Glucose [Mass/Vol] 108 mg/dL High 74-99 [facility] Comment on above: Performed By: #### 2 4362-6 ####BHANU Treviño ([id number])[facility])[address]463 [place] [address] Phosphate [Mass/Vol] 2.1 mg/dL Low 2.5-4.9 [facility] Comment on above: Performed By: #### 2 4362-6 ####BHANU Treviño (97679)[facility])24136 [place] [address] Potassium [Moles/Vol] 4.3 mmol/L Normal 3.5-5.3 [facility] Comment on above: Performed By: #### 2 4362-6 ####BHANU Treviño (47234)[facility])[address]78 [place] [address] Sodium [Moles/Vol] 142 mmol/L Normal 136-145 [facility] Comment on above: Performed By: #### 2 4362-6 ####BHANU Treviño ([id number])[facility] ([facility])[address] [place] [address] Urea nitrogen [Mass/Vol] 15 mg/dL Normal 6-23 [facility] Comment on above: Performed By: #### 2 4362-6 ####BHANU Treviño ([id number])[facility] ([facility])[address] [place] [address] CBC W Auto Differential pane l (Bld)on 02-03-2025 Basophils (Bld) [#/Vol] 0.05 x10*3/uL Normal 0.00-0.10 [facility] Comment on above: Performed By: #### 5 7021-8 ####BHANU Treviño ([id number])[facility] ([facility])[address] [place] [address] Basophils/100 WBC (Bld) 0.7 % Normal 0.0-2.[address] [facility] Comment on above: Performed By: #### 5 7021-8 ####BHANU Treviño ([id number])[facility] ([facility])[address] [place] [address] Eosinophils (Bld) [#/Vol] 0.55 x10*3/uL Normal 0.00-0.70 [facility] Comment on above: Performed By: #### 5 7021-8 ####BHANU Treviño ([id number])[facility] ([facility])[address] [place] [address] Eosinophils/100 WBC (Bld) 7.4 % Normal 0.0-6.0 [facility] Comment on above: Performed By: #### 5 7021-8 ####BHANU Treviño ([id number])[facility] ([facility])[address] [place] [address] Erythrocyte distribution width (RBC) [Ratio] 20.0 % High 11.5-14.5 [facility] Comment on above: Performed By: #### 5 7021-8 ####BHANU Treviño ([id number])[facility] ([facility])[address] [place] [address] 21138 Hematocrit (Bld) [Volume fraction] 25.4 % Low 41.0-52.0 [facility] Comment on above: Performed By: #### 5 7021-8 ####BHANU Treviño ([id number])[facility] ([facility])[address] [place] [address] 31968 Hemoglobin (Bld) [Mass/Vol] 8.0 g/dL Low 13.5-17.5 [facility] Comment on above: Performed By: #### 5 7021-8 ####BHANU Treviño ([id number])[facility] ([facility])[id number] [place] [address] 22486 Immature granulocytes (Bld) [#/Vol] 0.03 x10*3/uL Normal 0.00-0.70 [facility] Comment on above: Performed By: #### 5 7021-8 ####BHANU Treviño ([id number])[facility] ([facility])[address] [place] [address] 90310 Immature granulocytes/100 WBC (Bld) 0.4 % Normal 0.0-0.9 [facility] Comment on above: Result Comment: Christine ture Granulocyte Count (IG) includes promyelocytes, myelocytes and metamyelocytes but does not include bands. Percent differential counts (%) should be interpreted in the context of the absolute cell counts (cells/UL). Performed By: #### 5 7021-8 ####BHANU Treviño ([id number])[facility] ([facility])[address] [place] [address] Lymphocytes (Bld) [#/Vol] 1.37 x10*3/uL Normal 1.20-4.80 [facility] Comment on above: Performed By: #### 5 7021-8 ####BHANU Treviño ([id number])[facility] ([facility])[address] [place] [address] Lymphocytes/100 WBC (Bld) 18.4 % Normal 13.0-44.0 [facility] Comment on above: Performed By: #### 5 7021-8 ####BHANU Treviño ([id number])[facility] ([facility])[address]46 [place] [address] MCH (RBC) [Entitic mass] 24.2 pg Low 26.0-34.0 [facility] Comment on above: Performed By: #### 5 7021-8 ####BHANU Treviño ([id number])[facility] ([facility])[address]997 [place] [address] MCHC (RBC) [Mass/Vol] 31.5 g/dL Low 32.0-36.0 [facility] Comment on above: Performed By: #### 5 7021-8 ####BHANU Treviño (91030)[facility] ([facility])[address] [place] [address] MCV (RBC) [Entitic vol] 77 fL Low 80-[address] [facility] Comment on above: Performed By: #### 5 7021-8 ####BHANU Treviño (88207)[facility])[address]306 [place] [address] Monocytes (Bld) [#/Vol] 0.67 x10*3/uL Normal 0.10-1.00 [facility] Comment on above: Performed By: #### 5 7021-8 ####BHANU Treviño ([id number])[facility] ([facility])[address]36 [place] [address] Monocytes/100 WBC (Bld) 9.0 % Normal 2.0-10.[address] [facility] Comment on above: Performed By: #### 5 7021-8 ####BHANU Treviño ([id number])[facility])[address]12 [place] [address] Neutrophils (Bld) [#/Vol] 4.77 x10*3/uL Normal 1.20-7.70 [facility] Comment on above: Result Comment: Perc ent differential counts (%) should be interpreted in the context of the absolute cell counts (cells/uL). Performed By: #### 5 7021-8 ####BHANU Treviño ([id number])[facility])[address]203 [place] [address] Neutrophils/100 WBC (Bld) 64.1 % Normal 40.0-80.0 [facility] Comment on above: Performed By: #### 5 7021-8 ####BHANU Treviño ([id number])[facility])[address]239 [place] [address] Nucleated RBC/100 WBC (Bld) [Ratio] 0.0 /100 WBCs Normal 0.0-0.0 [facility] Comment on above: Performed By: #### 5 7021-8 ####BHANU Treviño ([id number])[facility])[address]35 [place] [address] Platelets (Bld) [#/Vol] 407 x10*3/uL Normal 150-450 [facility] Comment on above: Performed By: #### 5 7021-8 ####BHANU FLEMINGMOJOSEFA Treviño (32371)[facility])[address]81 [place] [address] RBC (Bld) [#/Vol] 3.31 x10*6/uL Low 4.50-5.90 [facility] Comment on above: Performed By: #### 5 7021-8 ####BHANU Treviño ([id number])[facility])[address]385 [place] [address] WBC (Bld) [#/Vol] 7.4 x10*3/uL Normal 4.4-11.[address] [facility] Comment on above: Performed By: #### 5 7021-8 ####BHANU Treviño (33460)[facility])[address]49 [place] [address] Glucose Test strip manual (B ld) [Mass/Vol]on 02-03-2025 Glucose [Mass/Vol] 102 mg/dL High 74-99 [facility] Comment on above: Performed By: #### 2 341-6 ####BHANU Treviño ([id number])[facility])[address] [place] [address] 45717 Renal function 2000 panelon 02-03-2025 Albumin BCP dye [Mass/Vol] 2.4 g/dL Low 3.4-5.0 [facility] Comment on above: Performed By: #### 2 4362-6 ####BHANU Treviño (42068)[facility])[address]64 [place] [address] Anion gap [Moles/Vol] 10 mmol/L Normal 10-20 [facility] Comment on above: Performed By: #### 2 4362-6 ####BHANU Treviño (06283)[facility])[address]65 [place] [address] Calcium [Mass/Vol] 7.8 mg/dL Low 8.6-10.6 [facility] Comment on above: Performed By: #### 2 4362-6 ####BHANU Treviño (55927)[facility])[address] [place] [address] 77899 Chloride [Moles/Vol] 107 mmol/L Normal 98-107 [facility] Comment on above: Performed By: #### 2 4362-6 ####BHANU Treviño ([id number])[facility])[address]51 [place] [address] CO2 [Moles/Vol] 30 mmol/L Normal 21-32 [facility] Comment on above: Performed By: #### 2 4362-6 ####BHANU Treviño (75527)[facility])[address]23 [place] [address] Creatinine [Mass/Vol] 1.10 mg/dL Normal 0.50-1.30 [facility] Comment on above: Performed By: #### 2 4362-6 ####BHANU Treviño (71723)[facility])[address]279 [place] [address] Glomerular filtration rate/1.73 sq M.predicted 81 mL/min/1.73m*2 Normal >[address] [facility] Comment on above: Result Comment: Calc ulations of estimated GFR are performed using the 2020 CKD-EPI Study Refit equation without the race variable for the IDMS-Traceable creatinine methods.https://jasn.asnjournals.org/content/ /ASN.2261861110 Performed By: #### 2 4362-6 ####BHNAU Treviño ([id number])[facility])[address]68 [place] [address] Glucose [Mass/Vol] 94 mg/dL Normal 74-99 [facility] Comment on above: Performed By: #### 2 4362-6 ####BHANU Treviño ([id number])[facility])12631 [place] [address] Phosphate [Mass/Vol] 2.9 mg/dL Normal 2.5-4.9 [facility] Comment on above: Performed By: #### 2 4362-6 ####BHANU Treviño (63202)[facility])[address]78 [place] [address] Potassium [Moles/Vol] 4.9 mmol/L Normal 3.5-5.3 [facility] Comment on above: Performed By: #### 2 4362-6 ####BHANU Treviño (76955)[facility])88225 [place] [address] Sodium [Moles/Vol] 142 mmol/L Normal 136-145 [facility] Comment on above: Performed By: #### 2 4362-6 ####BHANU Treviño ([id number])[facility])[address] [place] [address] 71219 Urea nitrogen [Mass/Vol] 15 mg/dL Normal 6-23 [facility] Comment on above: Performed By: #### 2 4362-6 ####BHANU Treviño (88162)[facility])[address]04 [place] [address] CBC W Auto Differential pane l (Bld)on 02-02-2025 Basophils (Bld) [#/Vol] 0.05 x10*3/uL Normal 0.00-0.10 [facility] Comment on above: Performed By: #### 5 7021-8 ####BHANU Treviño (36926)[facility])02968 [place] [address] Basophils/100 WBC (Bld) 0.9 % Normal 0.0-2.[address] [facility] Comment on above: Performed By: #### 5 7021-8 ####BHANU Treviño (25684)[facility])36021 [place] [address] Eosinophils (Bld) [#/Vol] 0.51 x10*3/uL Normal 0.00-0.70 [facility] Comment on above: Performed By: #### 5 7021-8 ####BHANU Treviño ([id number])[facility])17045 [place] [address] Eosinophils/100 WBC (Bld) 9.2 % Normal 0.0-6.0 [facility] Comment on above: Performed By: #### 5 7021-8 ####BHANU Treviño (75923)[facility])39371 [place] [address] Erythrocyte distribution width (RBC) [Ratio] 19.2 % High 11.5-14.5 [facility] Comment on above: Performed By: #### 5 7021-8 ####BHANU Treviño ([id number])[facility])[address] [place] [address] 85757 Hematocrit (Bld) [Volume fraction] 30.4 % Low 41.0-52.0 [facility] Comment on above: Performed By: #### 5 7021-8 ####BHANU Treviño ([id number])[facility])10450 [place] [address] Hemoglobin (Bld) [Mass/Vol] 9.7 g/dL Low 13.5-17.5 [facility] Comment on above: Performed By: #### 5 7021-8 ####BHANU Treviño (26364)[facility])12804 [place] [address] Immature granulocytes (Bld) [#/Vol] 0.02 x10*3/uL Normal 0.00-0.70 [facility] Comment on above: Performed By: #### 5 7021-8 ####BHANU FLEMINGMOTZALANNA L (17481)[facility])55753 [place] [address] Immature granulocytes/100 WBC (Bld) 0.4 % Normal 0.0-0.9 [facility] Comment on above: Result Comment: Christine ture Granulocyte Count (IG) includes promyelocytes, myelocytes and metamyelocytes but does not include bands. Percent differential counts (%) should be interpreted in the context of the absolute cell counts (cells/UL). Performed By: #### 5 7021-8 ####BHANU Treviño (52122)[facility])11171 [place] [address] Lymphocytes (Bld) [#/Vol] 0.92 x10*3/uL Low 1.20-4.80 [facility] Comment on above: Performed By: #### 5 7021-8 ####BHANU Treviño (97606)[facility])[address] [place] [address] 12174 Lymphocytes/100 WBC (Bld) 16.6 % Normal 13.0-44.0 [facility] Comment on above: Performed By: #### 5 7021-8 ####BHANU Treviño (77052)[facility])[address] [place] [address] 54808 MCH (RBC) [Entitic mass] 24.4 pg Low 26.0-34.0 [facility] Comment on above: Performed By: #### 5 7021-8 ####BHANU Treviño (12965)[facility])[address] [place] [address] 53149 MCHC (RBC) [Mass/Vol] 31.9 g/dL Low 32.0-36.0 [facility] Comment on above: Performed By: #### 5 7021-8 ####BHANU Treviño (83495)[facility])05407 [place] [address] MCV (RBC) [Entitic vol] 77 fL Low 80-[address] [facility] Comment on above: Performed By: #### 5 7021-8 ####BHANU Treviño (66845)[facility])[address] [place] [address] 17837 Monocytes (Bld) [#/Vol] 0.63 x10*3/uL Normal 0.10-1.00 [facility] Comment on above: Performed By: #### 5 7021-8 ####BHANU Treviño (88281)[facility])38257 [place] [address] Monocytes/100 WBC (Bld) 11.4 % Normal 2.0-10.[address] [facility] Comment on above: Performed By: #### 5 7021-8 ####BHANU Treviño (74064)[facility])22080 [place] [address] Neutrophils (Bld) [#/Vol] 3.41 x10*3/uL Normal 1.20-7.70 [facility] Comment on above: Result Comment: Perc ent differential counts (%) should be interpreted in the context of the absolute cell counts (cells/uL). Performed By: #### 5 7021-8 ####BHANU Treviño (60668)[facility])03627 [place] [address] Neutrophils/100 WBC (Bld) 61.5 % Normal 40.0-80.0 [facility] Comment on above: Performed By: #### 5 7021-8 ####BHANU Treviño (07315)[facility])28266 [place] [address] Nucleated RBC/100 WBC (Bld) [Ratio] 0.0 /100 WBCs Normal 0.0-0.0 [facility] Comment on above: Performed By: #### 5 7021-8 ####BHANU Treviño (99985)[facility])14412 [place] [address] Platelets (Bld) [#/Vol] 347 x10*3/uL Normal 150-450 [facility] Comment on above: Performed By: #### 5 7021-8 ####BHANU Treviño (64143)[facility])43140 [place] [address] RBC (Bld) [#/Vol] 3.97 x10*6/uL Low 4.50-5.90 [facility] Comment on above: Performed By: #### 5 7021-8 ####BHANU Treviño (20954)[facility])[address] [place] [address] 35191 WBC (Bld) [#/Vol] 5.5 x10*3/uL Normal 4.4-11.[address] [facility] Comment on above: Performed By: #### 5 7021-8 ####BHANU Treviño (30144)[facility])[address] [place] [address] 83716 Glucose Test strip manual (B ld) [Mass/Vol]on 02-02-2025 Glucose [Mass/Vol] 94 mg/dL Normal 74-99 [facility] Comment on above: Performed By: #### 2 341-6 ####BHANU Treviño (15852)[facility])[address] [place] [address] 56370 Glucose [Mass/Vol] 107 mg/dL High 74-99 [facility] Comment on above: Performed By: #### 2 341-6 ####BHANU Treviño (53853)[facility])[address] [place] [address] 95874 Prealbuminon 02-02-2025 Prealbumin [Mass/Vol] 7.5 mg/dL Low 18.0-40.0 [facility] Comment on above: Performed By: #### 1 4338-8 ####BHANU Treviño (86319)[facility])[address] [place] [address] 42405 Renal function 2000 panelon 02-02-2025 Albumin BCP dye [Mass/Vol] 2.4 g/dL Low 3.4-5.0 [facility] Comment on above: Performed By: #### 2 4362-6 ####BHANU Treviño (29185)[facility])[address] [place] [address] 17919 Anion gap [Moles/Vol] 12 mmol/L Normal 10-20 [facility] Comment on above: Performed By: #### 2 4362-6 ####BHANU Treviño (13559)[facility])50203 [place] [address] Calcium [Mass/Vol] 7.9 mg/dL Low 8.6-10.6 [facility] Comment on above: Performed By: #### 2 4362-6 ####BHANU GREGORY L (27252)[facility])[address]6520 [place] [address] Chloride [Moles/Vol] 107 mmol/L Normal 98-107 [facility] Comment on above: Performed By: #### 2 4362-6 ####BHANU Treviño (58916)[facility])87613 [place] [address] CO2 [Moles/Vol] 28 mmol/L Normal 21-32 [facility] Comment on above: Performed By: #### 2 4362-6 ####BHANU Treviño ([id number])[facility])85042 [place] [address] Creatinine [Mass/Vol] 1.19 mg/dL Normal 0.50-1.30 [facility] Comment on above: Performed By: #### 2 4362-6 ####BHANU Treviño (33452)[facility])01760 [place] [address] Glomerular filtration rate/1.73 sq M.predicted 74 mL/min/1.73m*2 Normal >[address] [facility] Comment on above: Result Comment: Calc ulations of estimated GFR are performed using the 2020 CKD-EPI Study Refit equation without the race variable for the IDMS-Traceable creatinine methods.https://jasn.asnjournals.org/content/ /ASN.2823081235 Performed By: #### 2 4362-6 ####BHANU Treviño (59279)[facility])25778 [place] [address] Glucose [Mass/Vol] 85 mg/dL Normal 74-99 [facility] Comment on above: Performed By: #### 2 4362-6 ####BHANU Treviño (72276)[facility])08828 [place] [address] Phosphate [Mass/Vol] 2.8 mg/dL Normal 2.5-4.9 [facility] Comment on above: Performed By: #### 2 4362-6 ####BHANU Treviño (90508)[facility])[address]3101 [place] [address] Potassium [Moles/Vol] 4.6 mmol/L Normal 3.5-5.3 [facility] Comment on above: Performed By: #### 2 4362-6 ####BHANU Treviño (09659)[facility])58488 [place] [address] Sodium [Moles/Vol] 142 mmol/L Normal 136-145 [facility] Comment on above: Performed By: #### 2 4362-6 ####BHANU Treviño (63925)[facility])[address]1379 [place] [address] Urea nitrogen [Mass/Vol] 15 mg/dL Normal 6-23 [facility] Comment on above: Performed By: #### 2 4362-6 ####BHANU Treviño (47525)[facility])32322 [place] [address] Basic metabolic 2000 panelon 02-01-2025 Anion gap [Moles/Vol] 13 mmol/L Normal 10-20 [facility] Comment on above: Performed By: #### 2 4321-2 ####BHANU Treviño (42816)[facility])36420 [place] [address] Calcium [Mass/Vol] 7.9 mg/dL Low 8.6-10.6 [facility] Comment on above: Performed By: #### 2 4321-2 ####BHANU Treviño (82656)[facility])78354 [place] [address] Chloride [Moles/Vol] 106 mmol/L Normal 98-107 [facility] Comment on above: Performed By: #### 2 4321-2 ####BHANU Treviño (65502)[facility])85655 [place] [address] CO2 [Moles/Vol] 29 mmol/L Normal 21-32 [facility] Comment on above: Performed By: #### 2 4321-2 ####BHANU Treviño (91632)[facility])[address]77 [place] [address] Creatinine [Mass/Vol] 1.35 mg/dL High 0.50-1.30 [facility] Comment on above: Performed By: #### 2 4321-2 ####BHANU Treviño (67989)[facility])51050 [place] [address] Glomerular filtration rate/1.73 sq M.predicted 64 mL/min/1.73m*2 Normal >[address] [facility] Comment on above: Result Comment: Calc ulations of estimated GFR are performed using the 2020 CKD-EPI Study Refit equation without the race variable for the IDMS-Traceable creatinine methods.https://jasn.asnjournals.org/content/early/ /ASN.5426704686 Performed By: #### 2 4321-2 ####BHANU Treviño (97201)[facility])25945 [place] [address] Glucose [Mass/Vol] 81 mg/dL Normal 74-99 [facility] Comment on above: Performed By: #### 2 4321-2 ####BHANU Treviño (24259)[facility])[address] [place] [address] Potassium [Moles/Vol] 4.5 mmol/L Normal 3.5-5.3 [facility] Comment on above: Performed By: #### 2 4321-2 ####BHANU Treviño (63854)[facility])[address]81 [place] [address] Sodium [Moles/Vol] 143 mmol/L Normal 136-145 [facility] Comment on above: Performed By: #### 2 4321-2 ####BHANU Treviño (69913)[facility])66661 [place] [address] Urea nitrogen [Mass/Vol] 15 mg/dL Normal 6-23 [facility] Comment on above: Performed By: #### 2 4321-2 ####BHANU Treviño (91991)[facility])92462 [place] [address] Blood type and Indirect anti body screen panel (Bld)on 02-01-2025 ABO group Nom (Bld) A Normal [facility] Comment on above: Performed By: #### 3 4532-2 ####BHANU Treviño (82097)[facility])[address] [facility] [place] [address] Blood group antibody screen Ql Negative [facility] Comment on above: Performed By: #### 3 4532-2 ####BHANU Treviño (26506)[facility] ([facility])[address] [place] [address] D Ag Ql (Bld) Positive [facility] Comment on above: Performed By: #### 3 4532-2 ####BHANU Treviño (90383)[facility] ([facility])[address]83 [facility] [place] [address] CBC panel Auto (Bld)on 02-01 Erythrocyte distribution width (RBC) [Ratio] 19.1 % High 11.5-14.5 [facility] Comment on above: Performed By: #### 5 8410-2 ####BHANU Treviño (85101)[facility] ([facility])[address] [place] [address] 59688 Hematocrit (Bld) [Volume fraction] 25.0 % Low 41.0-52.0 [facility] Comment on above: Performed By: #### 5 8410-2 ####BHANU Treviño (54566)[facility])[address] [place] [address] 73784 Hemoglobin (Bld) [Mass/Vol] 8.0 g/dL Low 13.5-17.5 [facility] Comment on above: Performed By: #### 5 8410-2 ####BHANU Treviño (26228)[facility])[address] [place] [address] 55349 MCH (RBC) [Entitic mass] 25.2 pg Low 26.0-34.0 [facility] Comment on above: Performed By: #### 5 8410-2 ####BHNAU Treviño (92095)[facility] ([facility])[address] [place] [address] 72411 MCHC (RBC) [Mass/Vol] 32.0 g/dL Normal 32.0-36.0 [facility] Comment on above: Performed By: #### 5 8410-2 ####BHANU Treviño (67965)[facility])[address] [place] [address] 91128 MCV (RBC) [Entitic vol] 79 fL Low 80-[address] [facility] Comment on above: Performed By: #### 5 8410-2 ####BHANU Treviño ([id number])[facility])[address] [place] [address] 44504 Nucleated RBC/100 WBC (Bld) [Ratio] 0.0 /100 WBCs Normal 0.0-0.0 [facility] Comment on above: Performed By: #### 5 8410-2 ####BHANU Treviño (95115)[facility])65660 [place] [address] Platelets (Bld) [#/Vol] 433 x10*3/uL Normal 150-450 [facility] Comment on above: Performed By: #### 5 8410-2 ####BHANU Treviño ([id number])[facility] ([facility])[address] [place] [address] RBC (Bld) [#/Vol] 3.18 x10*6/uL Low 4.50-5.90 [facility] Comment on above: Performed By: #### 5 8410-2 ####BHANU Treviño ([id number])[facility] ([facility])[address] [place] [address] WBC (Bld) [#/Vol] 6.9 x10*3/uL Normal 4.4-11.[address] [facility] Comment on above: Performed By: #### 5 8410-2 ####BHANU Treviño ([id number])[facility] ([facility])[address] [place] [address] Glucose Test strip manual (B ld) [Mass/Vol]on 02-01-2025 Glucose [Mass/Vol] 98 mg/dL Normal 74-99 [facility] Comment on above: Performed By: #### 2 341-6 ####BHANU Treviño ([id number])[facility] ([facility])[address] [place] [address] Glucose [Mass/Vol] 127 mg/dL High 74-99 [facility] Comment on above: Performed By: #### 2 341-6 ####BHANU Treviño ([id number])[facility] ([facility])[address] [place] [address] Glucose [Mass/Vol] 110 mg/dL High 74-99 [facility] Comment on above: Performed By: #### 2 341-6 ####BHANU Treviño ([id number])[facility] ([facility])[address] [place] [address] CBC W Auto Differential pane l (Bld)on 01-31-2025 Basophils (Bld) [#/Vol] 0.04 x10*3/uL Normal 0.00-0.10 [facility] Comment on above: Performed By: #### 5 7021-8 ####BHANU Treviño ([id number])[facility] ([facility])[id number] [place] [address] 47474 Basophils/100 WBC (Bld) 0.5 % Normal 0.0-2.[address] [facility] Comment on above: Performed By: #### 5 7021-8 ####BHANU Treviño ([id number])[facility] ([facility])[address] [place] [address] 92137 Eosinophils (Bld) [#/Vol] 0.01 x10*3/uL Normal 0.00-0.70 [facility] Comment on above: Performed By: #### 5 7021-8 ####BHANU Treviño ([id number])[facility] ([facility])[id number] [place] [address] 68770 Eosinophils/100 WBC (Bld) 0.1 % Normal 0.0-6.0 [facility] Comment on above: Performed By: #### 5 7021-8 ####BHANU Treviño ([id number])[facility] ([facility])[id number] [place] [address] 86851 Erythrocyte distribution width (RBC) [Ratio] 19.6 % High 11.5-14.5 [facility] Comment on above: Performed By: #### 5 7021-8 ####BHANU Treviño ([id number])[facility] ([facility])[address] [place] [address] 08976 Hematocrit (Bld) [Volume fraction] 21.9 % Low 41.0-52.0 [facility] Comment on above: Performed By: #### 5 7021-8 ####BHANU Treviño ([id number])[facility] ([facility])[address]107 [place] [address] Hemoglobin (Bld) [Mass/Vol] 7.1 g/dL Low 13.5-17.5 [facility] Comment on above: Performed By: #### 5 7021-8 ####BHANU Treviño (68961)[facility] ([facility])[address]48 [place] [address] Immature granulocytes (Bld) [#/Vol] 0.06 x10*3/uL Normal 0.00-0.70 [facility] Comment on above: Performed By: #### 5 7021-8 ####BHANU Treviño (94110)[facility] ([facility])[address]18 [place] [address] Immature granulocytes/100 WBC (Bld) 0.7 % Normal 0.0-0.9 [facility] Comment on above: Result Comment: Christine ture Granulocyte Count (IG) includes promyelocytes, myelocytes and metamyelocytes but does not include bands. Percent differential counts (%) should be interpreted in the context of the absolute cell counts (cells/UL). Performed By: #### 5 7021-8 ####BHANU Treviño ([id number])[facility] ([facility])[address]206 [place] [address] Lymphocytes (Bld) [#/Vol] 1.27 x10*3/uL Normal 1.20-4.80 [facility] Comment on above: Performed By: #### 5 7021-8 ####BHANU Treviño (93396)[facility])[address]14 [place] [address] Lymphocytes/100 WBC (Bld) 14.6 % Normal 13.0-44.0 [facility] Comment on above: Performed By: #### 5 7021-8 ####BHANU Treviño (96587)[facility])[address]319 [place] [address] MCH (RBC) [Entitic mass] 24.1 pg Low 26.0-34.0 [facility] Comment on above: Performed By: #### 5 7021-8 ####BHANU Treviño ([id number])[facility])[address]83 [place] [address] MCHC (RBC) [Mass/Vol] 32.4 g/dL Normal 32.0-36.0 [facility] Comment on above: Performed By: #### 5 7021-8 ####BHANU Treviño (77057)[facility])[address]145 [place] [address] MCV (RBC) [Entitic vol] 75 fL Low 80-[address] [facility] Comment on above: Performed By: #### 5 7021-8 ####BHANU Treviño (88605)[facility])[address]13 [place] [address] Monocytes (Bld) [#/Vol] 0.94 x10*3/uL Normal 0.10-1.00 [facility] Comment on above: Performed By: #### 5 7021-8 ####BHANU Treviño (10749)[facility])[address]08 [place] [address] Monocytes/100 WBC (Bld) 10.8 % Normal 2.0-10.[address] [facility] Comment on above: Performed By: #### 5 7021-8 ####BHANU Treviño (98530)[facility])[address]90 [place] [address] Neutrophils (Bld) [#/Vol] 6.39 x10*3/uL Normal 1.20-7.70 [facility] Comment on above: Result Comment: Perc ent differential counts (%) should be interpreted in the context of the absolute cell counts (cells/uL). Performed By: #### 5 7021-8 ####BHANU Treviño (11011)[facility])[address]27 [place] [address] Neutrophils/100 WBC (Bld) 73.3 % Normal 40.0-80.0 [facility] Comment on above: Performed By: #### 5 7021-8 ####BHANU Treviño (16005)[facility])54980 [place] [address] Nucleated RBC/100 WBC (Bld) [Ratio] 0.0 /100 WBCs Normal 0.0-0.0 [facility] Comment on above: Performed By: #### 5 7021-8 ####BHANU Treviño (37952)[facility])[address]03 [place] [address] Platelets (Bld) [#/Vol] 455 x10*3/uL High 150-450 [facility] Comment on above: Performed By: #### 5 7021-8 ####BHANU GREGORY L ([id number])[facility])15495 [place] [address] RBC (Bld) [#/Vol] 2.94 x10*6/uL Low 4.50-5.90 [facility] Comment on above: Performed By: #### 5 7021-8 ####BHANU Treviño (33214)[facility])24377 [place] [address] WBC (Bld) [#/Vol] 8.7 x10*3/uL Normal 4.4-11.[address] [facility] Comment on above: Performed By: #### 5 7021-8 ####BHANU GREGORY L (08037)[facility])55395 [place] [address] Glucose Test strip manual (B ld) [Mass/Vol]on 01-31-2025 Glucose [Mass/Vol] 97 mg/dL Normal 74-99 [facility] Comment on above: Performed By: #### 2 341-6 ####BHANU Treviño (74687)[facility])45270 [place] [address] Glucose [Mass/Vol] 107 mg/dL High 74-99 [facility] Comment on above: Performed By: #### 2 341-6 ####BHANU Treviño (01596)[facility])[address]45 [place] [address] Magnesiumon 01-31-2025 Magnesium [Mass/Vol] 2.07 mg/dL Normal 1.60-2.40 [facility] Comment on above: Performed By: #### 1 9123-9 ####BHANU Treviño (98433)[facility])36325 [place] [address] Renal function 2000 panelon 01-31-2025 Albumin BCP dye [Mass/Vol] 2.6 g/dL Low 3.4-5.0 [facility] Comment on above: Performed By: #### 2 4362-6 ####BHANU Treviño (92697)[facility])[address] [place] [address] 96966 Anion gap [Moles/Vol] 13 mmol/L Normal 10-20 [facility] Comment on above: Performed By: #### 2 4362-6 ####BHANU Treviño (97966)[facility])13062 [place] [address] Calcium [Mass/Vol] 8.2 mg/dL Low 8.6-10.6 [facility] Comment on above: Performed By: #### 2 4362-6 ####BHANU Treviño (14644)[facility])46575 [place] [address] Chloride [Moles/Vol] 102 mmol/L Normal 98-107 [facility] Comment on above: Performed By: #### 2 4362-6 ####BHANU Treviño (17572)[facility])[address]6463 [place] [address] CO2 [Moles/Vol] 29 mmol/L Normal 21-32 [facility] Comment on above: Performed By: #### 2 4362-6 ####BHANU Treviño (30838)[facility])81985 [place] [address] Creatinine [Mass/Vol] 1.04 mg/dL Normal 0.50-1.30 [facility] Comment on above: Performed By: #### 2 4362-6 ####BHANU Treviño (62957)[facility])[address]2734 [place] [address] Glomerular filtration rate/1.73 sq M.predicted 87 mL/min/1.73m*2 Normal >[address] [facility] Comment on above: Result Comment: Calc ulations of estimated GFR are performed using the 2020 CKD-EPI Study Refit equation without the race variable for the IDMS-Traceable creatinine methods.https://jasn.asnjournals.org/content/early /ASN.0035245977 Performed By: #### 2 4362-6 ####BHANU Treviño (74163)[facility])[address]13 [place] [address] Glucose [Mass/Vol] 104 mg/dL High 74-99 [facility] Comment on above: Performed By: #### 2 4362-6 ####BHANU Treviño (36951)[facility])82475 [place] [address] Phosphate [Mass/Vol] 3.6 mg/dL Normal 2.5-4.9 [facility] Comment on above: Performed By: #### 2 4362-6 ####BHANU Treviño (74746)[facility])00892 [place] [address] Potassium [Moles/Vol] 4.4 mmol/L Normal 3.5-5.3 [facility] Comment on above: Performed By: #### 2 4362-6 ####BHANU Treviño (53027)[facility])88993 [place] [address] Sodium [Moles/Vol] 140 mmol/L Normal 136-145 [facility] Comment on above: Performed By: #### 2 4362-6 ####BHANU Treviño (38753)[facility])85127 [place] [address] Urea nitrogen [Mass/Vol] 12 mg/dL Normal 6-23 [facility] Comment on above: Performed By: #### 2 4362-6 ####BHANU Treviño (19583)[facility])[address] [place] [address] 67075 Bacteria identifiedon 2024 Bacteria identified Cx Nom (Unsp spec) Abnormal [facility] Comment on above: Performed By: #### 6 463-4 ####BHANU Treviño (40751)[facility])[address] [place] [address] 48969 Bacteria identified Cx Nom (Unsp spec) Abnormal [facility] Comment on above: Performed By: #### 6 463-4 ####BHANU Treviño (30003)[facility])[id number] [place] [address] 33172 CBC W Auto Differential pane l (Bld)on 01-30-2025 Basophils (Bld) [#/Vol] 0.05 x10*3/uL Normal 0.00-0.10 [facility] Comment on above: Performed By: #### 5 7021-8 ####BHANU Treviño (24176)[facility])[address] [place] [address] 01721 Basophils/100 WBC (Bld) 0.7 % Normal 0.0-2.[address] [facility] Comment on above: Performed By: #### 5 7021-8 ####BHANU Treviño (04010)[facility])[address] [place] [address] Eosinophils (Bld) [#/Vol] 0.14 x10*3/uL Normal 0.00-0.70 [facility] Comment on above: Performed By: #### 5 7021-8 ####BHANU Treviño (23683)[facility])[address] [place] [address] 35412 Eosinophils/100 WBC (Bld) 2.0 % Normal 0.0-6.0 [facility] Comment on above: Performed By: #### 5 7021-8 ####BHANU Treviño (10949)[facility])[address] [place] [address] 58207 Erythrocyte distribution width (RBC) [Ratio] 19.9 % High 11.5-14.5 [facility] Comment on above: Performed By: #### 5 7021-8 ####BHANU Treviño (73423)[facility])[address] [place] [address] 13171 Hematocrit (Bld) [Volume fraction] 26.3 % Low 41.0-52.0 [facility] Comment on above: Performed By: #### 5 7021-8 ####BHANU Treviño (21028)[facility])[address] [place] [address] 64974 Hemoglobin (Bld) [Mass/Vol] 8.3 g/dL Low 13.5-17.5 [facility] Comment on above: Performed By: #### 5 7021-8 ####BHANU Treviño ([id number])[facility])[address] [place] [address] 63689 Immature granulocytes (Bld) [#/Vol] 0.02 x10*3/uL Normal 0.00-0.70 [facility] Comment on above: Performed By: #### 5 7021-8 ####BHANU Treviño (38092)[facility])[address] [place] [address] 72156 Immature granulocytes/100 WBC (Bld) 0.3 % Normal 0.0-0.9 [facility] Comment on above: Result Comment: Christine ture Granulocyte Count (IG) includes promyelocytes, myelocytes and metamyelocytes but does not include bands. Percent differential counts (%) should be interpreted in the context of the absolute cell counts (cells/UL). Performed By: #### 5 7021-8 ####BHANU Treviño (77040)[facility])31063 [place] [address] Lymphocytes (Bld) [#/Vol] 1.09 x10*3/uL Low 1.20-4.80 [facility] Comment on above: Performed By: #### 5 7021-8 ####BHANU Treviño (70054)[facility])[address] [place] [address] 77748 Lymphocytes/100 WBC (Bld) 15.4 % Normal 13.0-44.0 [facility] Comment on above: Performed By: #### 5 7021-8 ####BHANU Treviño (70701)[facility])64910 [place] [address] MCH (RBC) [Entitic mass] 24.1 pg Low 26.0-34.0 [facility] Comment on above: Performed By: #### 5 7021-8 ####BHANU Treviño (38605)[facility])08967 [place] [address] MCHC (RBC) [Mass/Vol] 31.6 g/dL Low 32.0-36.0 [facility] Comment on above: Performed By: #### 5 7021-8 ####BHANU Treviño (19170)[facility])21186 [place] [address] MCV (RBC) [Entitic vol] 76 fL Low 80-[address] [facility] Comment on above: Performed By: #### 5 7021-8 ####BHANU Treviño (10872)[facility])38039 [place] [address] Monocytes (Bld) [#/Vol] 0.89 x10*3/uL Normal 0.10-1.00 [facility] Comment on above: Performed By: #### 5 7021-8 ####BHANU GREGORY L (03854)[facility])93551 [place] [address] Monocytes/100 WBC (Bld) 12.6 % Normal 2.0-10.[address] [facility] Comment on above: Performed By: #### 5 7021-8 ####BHANU GREGORY L (22149)[facility])86115 [place] [address] Neutrophils (Bld) [#/Vol] 4.87 x10*3/uL Normal 1.20-7.70 [facility] Comment on above: Result Comment: Perc ent differential counts (%) should be interpreted in the context of the absolute cell counts (cells/uL). Performed By: #### 5 7021-8 ####BHANU GREGORY L (99053)[facility])79757 [place] [address] Neutrophils/100 WBC (Bld) 69.0 % Normal 40.0-80.0 [facility] Comment on above: Performed By: #### 5 7021-8 ####BHANU Treviño (33863)[facility])77996 [place] [address] Nucleated RBC/100 WBC (Bld) [Ratio] 0.0 /100 WBCs Normal 0.0-0.0 [facility] Comment on above: Performed By: #### 5 7021-8 ####BHANU GREGORY L (72977)[facility])89886 [place] [address] Platelets (Bld) [#/Vol] 492 x10*3/uL High 150-450 [facility] Comment on above: Performed By: #### 5 7021-8 ####BHANU GREGORY L (78786)[facility])89500 [place] [address] RBC (Bld) [#/Vol] 3.45 x10*6/uL Low 4.50-5.90 [facility] Comment on above: Performed By: #### 5 7021-8 ####BHANU Treviño (01769)[facility])55186 [place] [address] WBC (Bld) [#/Vol] 7.1 x10*3/uL Normal 4.4-11.[address] [facility] Comment on above: Performed By: #### 5 7021-8 ####BHANU Treviño (68686)[facility])[address]88 [place] [address] Comprehensive metabolic 2000 panelon 01-30-2025 Albumin BCP dye [Mass/Vol] 2.3 g/dL Low 3.4-5.0 [facility] Comment on above: Performed By: #### 2 4323-8 ####BHANU Treviño (43792)[facility])16534 [place] [address] ALP [Catalytic activity/Vol] 80 U/L Normal 33-120 [facility] Comment on above: Performed By: #### 2 4323-8 ####BHANU Treviño (25329)[facility])[address]6515 [place] [address] ALT With P-5'-P [Catalytic activity/Vol] 29 U/L Normal 10-52 [facility] Comment on above: Result Comment: Sydni ents treated with Sulfasalazine may generate falsely decreased results for ALT. Performed By: #### 2 4323-8 ####BHANU Treviño (81283)[facility])90976 [place] [address] Anion gap [Moles/Vol] 13 mmol/L Normal 10-20 [facility] Comment on above: Performed By: #### 2 4323-8 ####BHANU Treviño (22676)[facility])26469 [place] [address] AST With P-5'-P [Catalytic activity/Vol] 33 U/L Normal 9-39 [facility] Comment on above: Performed By: #### 2 4323-8 ####BHANU Treviño (84024)[facility])43264 [place] [address] Bilirubin [Mass/Vol] 0.4 mg/dL Normal 0.0-1.2 [facility] Comment on above: Performed By: #### 2 4323-8 ####BHANU Treviño (16273)[facility])24066 [place] [address] Calcium [Mass/Vol] 8.4 mg/dL Low 8.6-10.6 [facility] Comment on above: Performed By: #### 2 4323-8 ####BHANU Treviño (75122)[facility])81902 [place] [address] Chloride [Moles/Vol] 102 mmol/L Normal 98-107 [facility] Comment on above: Performed By: #### 2 4323-8 ####BHANU Treviño (10934)[facility])58933 [place] [address] CO2 [Moles/Vol] 29 mmol/L Normal 21-32 [facility] Comment on above: Performed By: #### 2 4323-8 ####BHANU Treviño (02985)[facility])72573 [place] [address] Creatinine [Mass/Vol] 1.06 mg/dL Normal 0.50-1.30 [facility] Comment on above: Performed By: #### 2 4323-8 ####BHANU Treviño (67380)[facility])59135 [place] [address] Glomerular filtration rate/1.73 sq M.predicted 85 mL/min/1.73m*2 Normal >[address] [facility] Comment on above: Result Comment: Calc ulations of estimated GFR are performed using the 2020 CKD-EPI Study Refit equation without the race variable for the IDMS-Traceable creatinine methods.https://jasn.asnjournals.org/content/ /ASN.2697766161 Performed By: #### 2 4323-8 ####BHANU Treviño (29505)[facility])68663 [place] [address] Glucose [Mass/Vol] 91 mg/dL Normal 74-99 [facility] Comment on above: Performed By: #### 2 4323-8 ####BHANU Treviño (72116)[facility])88340 [place] [address] Potassium [Moles/Vol] 4.5 mmol/L Normal 3.5-5.3 [facility] Comment on above: Performed By: #### 2 4323-8 ####BHANU Treviño (99717)[facility])22597 [place] [address] Protein [Mass/Vol] 6.1 g/dL Low 6.4-8.2 [facility] Comment on above: Performed By: #### 2 4323-8 ####BHANU Treviño (94313)[facility])01528 [place] [address] Sodium [Moles/Vol] 139 mmol/L Normal 136-145 [facility] Comment on above: Performed By: #### 2 4323-8 ####BHANU Treviño (28955)[facility])49884 [place] [address] Urea nitrogen [Mass/Vol] 11 mg/dL Normal 6-23 [facility] Comment on above: Performed By: #### 2 4323-8 ####BHANU Treviño (72636)[facility])[address] [place] [address]36 Fungus identifiedon 01-31-20 Fungus identified Cx Nom (Unsp spec) Abnormal [facility] Comment on above: Performed By: #### 5 80-1 ####BHANU Treviño (84503)[facility])[address] [place] [address] 22697 Fungus identified Cx Nom (Unsp spec) Abnormal [facility] Comment on above: Performed By: #### 5 80-1 ####BHANU rTeviño (64814)[facility])[address] [place] [address] Glucose Test strip manual (B ld) [Mass/Vol]on 01-30-2025 Glucose [Mass/Vol] 129 mg/dL High 74-99 [facility] Comment on above: Performed By: #### 2 341-6 ####BHANU Treviño (81165)[facility])[address] [place] [address] 10398 Magnesiumon 01-30-2025 Magnesium [Mass/Vol] 2.05 mg/dL Normal 1.60-2.40 [facility] Comment on above: Performed By: #### 1 9123-9 ####BHANU Treviño (28669)[facility])[address] [place] [address]191 Surgical pathology studyon 0 01-30-2025 Surgical pathology study Normal [facility] Comment on above: Order Comment: Pre-o p diagnosis:Hidradenitis suppurativa [L73.2]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 Comment on above: Performed By: #### 3 4532-2 ####BHANU Treviño (48647)[id number] [place] [address] 68170 Blood group antibody screen Ql Negative [facility] Comment on above: Performed By: #### 3 4532-2 ####BHANU Treviño (68417)[facility] ([facility])[address]33 [facility] [address] D Ag Ql (Bld) Positive [facility] Comment on above: Performed By: #### 3 4532-2 ####BHANU Treviño (99700)[facility] ([facility])83836 [facility] [address] CBC W Auto Differential pane l (Bld)on 01-29-2025 Basophils (Bld) [#/Vol] 0.07 x10*3/uL Normal 0.00-0.10 [facility] Comment on above: Performed By: #### 5 7021-8 ####BHANU Treviño (28386)[facility] ([facility])40512 [place] [address] Basophils/100 WBC (Bld) 0.9 % Normal 0.0-2.[address] [facility] Comment on above: Performed By: #### 5 7021-8 ####BHANU Treviño (10336)[facility] ([facility])[address] [place] [address] 54318 Eosinophils (Bld) [#/Vol] 0.16 x10*3/uL Normal 0.00-0.70 [facility] Comment on above: Performed By: #### 5 7021-8 ####BHANU Treviño (76037)[facility] ([facility])04090 [place] [address] Eosinophils/100 WBC (Bld) 2.0 % Normal 0.0-6.0 [facility] Comment on above: Performed By: #### 5 7021-8 ####BHANU Treviño (44491)[facility] ([facility])[address]25 [place] [address] Erythrocyte distribution width (RBC) [Ratio] 20.0 % High 11.5-14.5 [facility] Comment on above: Performed By: #### 5 7021-8 ####BHANU Treviño ([id number])[facility] ([facility])[id number] [place] [id number] Hematocrit (Bld) [Volume fraction] 29.4 % Low 41.0-52.0 [facility] Comment on above: Performed By: #### 5 7021-8 ####BHANU GREGORY L ([id number])[facility] ([facility])[id number] [place] [address] Hemoglobin (Bld) [Mass/Vol] 8.8 g/dL Low 13.5-17.5 [facility] Comment on above: Performed By: #### 5 7021-8 ####BHANU Treviño ([id number])[facility] ([facility])[id number] [place] [address] Immature granulocytes (Bld) [#/Vol] 0.03 x10*3/uL Normal 0.00-0.70 [facility] Comment on above: Performed By: #### 5 7021-8 ####BHANU Treviño ([id number])[facility] ([facility])[id number] [place] [address]40[address] Immature granulocytes/100 WBC (Bld) 0.4 % Normal 0.0-0.9 [facility] Comment on above: Result Comment: Christine ture Granulocyte Count (IG) includes promyelocytes, myelocytes and metamyelocytes but does not include bands. Percent differential counts (%) should be interpreted in the context of the absolute cell counts (cells/UL). Performed By: #### 5 7021-8 ####BHANU Treviño ([id number])[facility] ([facility])[id number] [place] [address]26 Lymphocytes (Bld) [#/Vol] 1.25 x10*3/uL Normal 1.20-4.80 [facility] Comment on above: Performed By: #### 5 7021-8 ####BHANU Treviño ([id number])[facility] ([facility])[address]64 [place] [address] Lymphocytes/100 WBC (Bld) 15.7 % Normal 13.0-44.0 [facility] Comment on above: Performed By: #### 5 7021-8 ####BHANU Treviño ([id number])[facility] ([facility])78249 [place] [address] MCH (RBC) [Entitic mass] 23.7 pg Low 26.0-34.0 [facility] Comment on above: Performed By: #### 5 7021-8 ####BHANU Treviño ([id number])[facility] ([facility])[address]53 [place] [address] MCHC (RBC) [Mass/Vol] 29.9 g/dL Low 32.0-36.0 [facility] Comment on above: Performed By: #### 5 7021-8 ####BHANU Treviño ([id number])[facility] ([facility])[address] [place] [address]8422 MCV (RBC) [Entitic vol] 79 fL Low 80-[address] [facility] Comment on above: Performed By: #### 5 7021-8 ####BHANU Treviño ([id number])[facility] ([facility])[address] [place] [address] 62391 Monocytes (Bld) [#/Vol] 0.98 x10*3/uL Normal 0.10-1.00 [facility] Comment on above: Performed By: #### 5 7021-8 ####BHANU Treviño ([id number])[facility] ([facility])[address]359 [place] [address] Monocytes/100 WBC (Bld) 12.3 % Normal 2.0-10.[address] [facility] Comment on above: Performed By: #### 5 7021-8 ####BHANU Treviño ([id number])[facility] ([facility])85244 [place] [address] Neutrophils (Bld) [#/Vol] 5.45 x10*3/uL Normal 1.20-7.70 [facility] Comment on above: Result Comment: Perc ent differential counts (%) should be interpreted in the context of the absolute cell counts (cells/uL). Performed By: #### 5 7021-8 ####BHANU Treviño ([id number])[facility] ([facility])20759 [place] [address] Neutrophils/100 WBC (Bld) 68.7 % Normal 40.0-80.0 [facility] Comment on above: Performed By: #### 5 7021-8 ####BHANU Treviño ([id number])[facility] ([facility])51090 [place] [address] Nucleated RBC/100 WBC (Bld) [Ratio] 0.0 /100 WBCs Normal 0.0-0.0 [facility] Comment on above: Performed By: #### 5 7021-8 ####BHANU GREGORY L ([id number])[facility] ([facility])[address]99 [place] [address] Platelets (Bld) [#/Vol] 537 x10*3/uL High 150-450 [facility] Comment on above: Performed By: #### 5 7021-8 ####BHANU Treviño ([id number])[facility] ([facility])23191 [place] [address] RBC (Bld) [#/Vol] 3.72 x10*6/uL Low 4.50-5.90 [facility] Comment on above: Performed By: #### 5 7021-8 ####BHANU GREGORY L ([id number])[facility])93155 [place] [address] WBC (Bld) [#/Vol] 7.9 x10*3/uL Normal 4.4-11.[address] [facility] Comment on above: Performed By: #### 5 7021-8 ####BHANU GREGORY L ([id number])[facility])56223 [place] [address] Comprehensive metabolic 2000 panelon 01-29-2025 Albumin BCP dye [Mass/Vol] 2.4 g/dL Low 3.4-5.0 [facility] Comment on above: Performed By: #### 2 4323-8 ####BHANU Treviño ([id number])[facility])64478 [place] [address] ALP [Catalytic activity/Vol] 70 U/L Normal 33-120 [facility] Comment on above: Performed By: #### 2 4323-8 ####BHANU Treviño ([id number])[facility])[address]9536 [place] [address] ALT With P-5'-P [Catalytic activity/Vol] 28 U/L Normal 10-52 [facility] Comment on above: Result Comment: Sydni ents treated with Sulfasalazine may generate falsely decreased results for ALT. Performed By: #### 2 4323-8 ####BHANU Treviño ([id number])[facility])86695 [place] [address] Anion gap [Moles/Vol] 11 mmol/L Normal 10-20 [facility] Comment on above: Performed By: #### 2 4323-8 ####BHANU Treviño ([id number])[facility])86094 [place] [address] AST With P-5'-P [Catalytic activity/Vol] 28 U/L Normal 9-39 [facility] Comment on above: Performed By: #### 2 4323-8 ####BHANU Treviño (91304)[facility])58368 [place] [address] Bilirubin [Mass/Vol] 0.3 mg/dL Normal 0.0-1.2 [facility] Comment on above: Performed By: #### 2 4323-8 ####BHANU Treviño ([id number])[facility])74087 [place] [address] Calcium [Mass/Vol] 8.2 mg/dL Low 8.6-10.6 [facility] Comment on above: Performed By: #### 2 4323-8 ####BHANU GREGORY L ([id number])[facility])[address] [place] [address] Chloride [Moles/Vol] 102 mmol/L Normal 98-107 [facility] Comment on above: Performed By: #### 2 4323-8 ####BHANU FLEMINGMOTZER L ([id number])[facility])26731 [place] [address] CO2 [Moles/Vol] 28 mmol/L Normal 21-32 [facility] Comment on above: Performed By: #### 2 4323-8 ####BHANU GREGORY L (60789)[facility])41096 [place] [address] Creatinine [Mass/Vol] 1.07 mg/dL Normal 0.50-1.30 [facility] Comment on above: Performed By: #### 2 4323-8 ####BHANU GREGORY L ([id number])[facility] ([facility])61781 [place] [address] Glomerular filtration rate/1.73 sq M.predicted 84 mL/min/1.73m*2 Normal >[address] [facility] Comment on above: Result Comment: Calc ulations of estimated GFR are performed using the 2020 CKD-EPI Study Refit equation without the race variable for the IDMS-Traceable creatinine methods.https://jasn.asnjournals.org/content/ /ASN.8244676410 Performed By: #### 2 4323-8 ####BHANU LAUREANOTZALANNA L (65598)[facility])46088 [place] [address] Glucose [Mass/Vol] 99 mg/dL Normal 74-99 [facility] Comment on above: Performed By: #### 2 4323-8 ####BHANU Treviño (93882)[facility])04818 [place] [address] Potassium [Moles/Vol] 4.2 mmol/L Normal 3.5-5.3 [facility] Comment on above: Performed By: #### 2 4323-8 ####BHANU Treviño ([id number])[facility] ([facility])[address] [place] [address] 11893 Protein [Mass/Vol] 6.4 g/dL Normal 6.4-8.2 [facility] Comment on above: Performed By: #### 2 4323-8 ####BHANU Treviño (99575)[facility])76942 [place] [address] Sodium [Moles/Vol] 137 mmol/L Normal 136-145 [facility] Comment on above: Performed By: #### 2 4323-8 ####BHANU Treviño ([id number])[facility])38227 [place] [address] Urea nitrogen [Mass/Vol] 12 mg/dL Normal 6-23 [facility] Comment on above: Performed By: #### 2 4323-8 ####BHANU Treviño (91632)[facility])34299 [place] [address] Creatine kinaseon 01-29-2025 CK [Catalytic activity/Vol] 58 U/L Normal 0-325 [facility] Comment on above: Performed By: #### 2 157-6 ####BHANU Treviño (49818)[facility])69922 [place] [address] Magnesiumon 01-29-2025 Magnesium [Mass/Vol] 1.81 mg/dL Normal 1.60-2.40 [facility] Comment on above: Performed By: #### 1 9123-9 ####BHANU Treviño (76215)[facility])77288 [place] [address] CBC W Auto Differential pane l (Bld)on 01-28-2025 Basophils (Bld) [#/Vol] 0.07 x10*3/uL Normal 0.00-0.10 [facility] Comment on above: Performed By: #### 5 7021-8 ####BHANU Treviño ([id number])[facility])60169 [place] [address] Basophils/100 WBC (Bld) 1.0 % Normal 0.0-2.[address] [facility] Comment on above: Performed By: #### 5 7021-8 ####BHANU Treviño ([id number])[facility])[address] [place] [address] 36818 Eosinophils (Bld) [#/Vol] 0.44 x10*3/uL Normal 0.00-0.70 [facility] Comment on above: Performed By: #### 5 7021-8 ####BHANU Treviño ([id number])[facility])72323 [place] [address] Eosinophils/100 WBC (Bld) 6.0 % Normal 0.0-6.0 [facility] Comment on above: Performed By: #### 5 7021-8 ####BHANU Treviño ([id number])[facility])89766 [place] [address] Erythrocyte distribution width (RBC) [Ratio] 19.7 % High 11.5-14.5 [facility] Comment on above: Performed By: #### 5 7021-8 ####BHANU Treviño ([id number])[facility])97080 [place] [address] Hematocrit (Bld) [Volume fraction] 26.4 % Low 41.0-52.0 [facility] Comment on above: Performed By: #### 5 7021-8 ####BHANU Treviño (02261)[facility])01628 [place] [address] Hemoglobin (Bld) [Mass/Vol] 8.5 g/dL Low 13.5-17.5 [facility] Comment on above: Performed By: #### 5 7021-8 ####BHANU Treviño (06754)[facility])82581 [place] [address] Immature granulocytes (Bld) [#/Vol] 0.04 x10*3/uL Normal 0.00-0.70 [facility] Comment on above: Performed By: #### 5 7021-8 ####BHANU Treviño (22534)[facility])78420 [place] [address] Immature granulocytes/100 WBC (Bld) 0.5 % Normal 0.0-0.9 [facility] Comment on above: Result Comment: Christine ture Granulocyte Count (IG) includes promyelocytes, myelocytes and metamyelocytes but does not include bands. Percent differential counts (%) should be interpreted in the context of the absolute cell counts (cells/UL). Performed By: #### 5 7021-8 ####BHANU Treviño ([id number])[facility])28375 [place] [address] Lymphocytes (Bld) [#/Vol] 1.21 x10*3/uL Normal 1.20-4.80 [facility] Comment on above: Performed By: #### 5 7021-8 ####BHANU Treviño (33715)[facility])19343 [place] [address] Lymphocytes/100 WBC (Bld) 16.4 % Normal 13.0-44.0 [facility] Comment on above: Performed By: #### 5 7021-8 ####BHANU Treviño (72509)[facility])95938 [place] [address] MCH (RBC) [Entitic mass] 24.6 pg Low 26.0-34.0 [facility] Comment on above: Performed By: #### 5 7021-8 ####BHANU Treviño (96245)[facility])12469 [place] [address] MCHC (RBC) [Mass/Vol] 32.2 g/dL Normal 32.0-36.0 [facility] Comment on above: Performed By: #### 5 7021-8 ####BHANU Treviño (21778)[facility])19408 [place] [address] MCV (RBC) [Entitic vol] 77 fL Low 80-[address] [facility] Comment on above: Performed By: #### 5 7021-8 ####BHANU Treviño ([id number])[facility])[address] [place] [address] 18590 Monocytes (Bld) [#/Vol] 1.09 x10*3/uL High 0.10-1.00 [facility] Comment on above: Performed By: #### 5 7021-8 ####BHANU Treviño (24131)[facility])22250 [place] [address] Monocytes/100 WBC (Bld) 14.8 % Normal 2.0-10.[address] [facility] Comment on above: Performed By: #### 5 7021-8 ####BHANU Treviño (97361)[facility])[address] [place] [address] Neutrophils (Bld) [#/Vol] 4.51 x10*3/uL Normal 1.20-7.70 [facility] Comment on above: Result Comment: Perc ent differential counts (%) should be interpreted in the context of the absolute cell counts (cells/uL). Performed By: #### 5 7021-8 ####BHANU Treviño (58125)[facility])22355 [place] [address] Neutrophils/100 WBC (Bld) 61.3 % Normal 40.0-80.0 [facility] Comment on above: Performed By: #### 5 7021-8 ####BHANU Treviño (07250)[facility])[address] [place] [address] 39786 Nucleated RBC/100 WBC (Bld) [Ratio] 0.0 /100 WBCs Normal 0.0-0.0 [facility] Comment on above: Performed By: #### 5 7021-8 ####BHANU Treviño (99990)[facility])[address] [place] [address] 41735 Platelets (Bld) [#/Vol] 620 x10*3/uL High 150-450 [facility] Comment on above: Performed By: #### 5 7021-8 ####BHANU Treviño (32727)[facility])[address] [place] [address]25 RBC (Bld) [#/Vol] 3.45 x10*6/uL Low 4.50-5.90 [facility] Comment on above: Performed By: #### 5 7021-8 ####BHANU Treviño (90233)[facility])[address] [place] [address]157 WBC (Bld) [#/Vol] 7.4 x10*3/uL Normal 4.4-11.[address] [facility] Comment on above: Performed By: #### 5 7021-8 ####BHANU Treviño ([id number])[facility])[address] [place] [address] 73715 Comprehensive metabolic 2000 panelon 01-28-2025 Albumin BCP dye [Mass/Vol] 2.3 g/dL Low 3.4-5.0 [facility] Comment on above: Performed By: #### 2 4323-8 ####BHANU Treviño (58764)[facility])[address] [place] [address] 44272 ALP [Catalytic activity/Vol] 72 U/L Normal 33-120 [facility] Comment on above: Performed By: #### 2 4323-8 ####BHANU Treviño (98581)[facility])40999 [place] [address] ALT With P-5'-P [Catalytic activity/Vol] 35 U/L Normal 10-52 [facility] Comment on above: Result Comment: Sydni ents treated with Sulfasalazine may generate falsely decreased results for ALT. Performed By: #### 2 4323-8 ####BHANU Treviño (76230)[facility] ([facility])20459 [place] [address] Anion gap [Moles/Vol] 13 mmol/L Normal 10-20 [facility] Comment on above: Performed By: #### 2 4323-8 ####BHANU Treviño (51053)[facility])04198 [place] [address] AST With P-5'-P [Catalytic activity/Vol] 32 U/L Normal 9-39 [facility] Comment on above: Performed By: #### 2 4323-8 ####BHANU Treviño (65017)[facility])22169 [place] [address] Bilirubin [Mass/Vol] 0.3 mg/dL Normal 0.0-1.2 [facility] Comment on above: Performed By: #### 2 4323-8 ####BHANU Treviño (97810)[facility])00550 [place] [address] Calcium [Mass/Vol] 8.0 mg/dL Low 8.6-10.6 [facility] Comment on above: Performed By: #### 2 4323-8 ####BHANU Treviño (67356)[facility])31452 [place] [address] Chloride [Moles/Vol] 102 mmol/L Normal 98-107 [facility] Comment on above: Performed By: #### 2 4323-8 ####BHANU Treviño (17962)[facility])67899 [place] [address] CO2 [Moles/Vol] 28 mmol/L Normal 21-32 [facility] Comment on above: Performed By: #### 2 4323-8 ####BHANU Treviño (89150)[facility])98911 [place] [address] Creatinine [Mass/Vol] 1.07 mg/dL Normal 0.50-1.30 [facility] Comment on above: Performed By: #### 2 4323-8 ####BHANU Treviño ([id number])[facility])98533 [place] [address] Glomerular filtration rate/1.73 sq M.predicted 84 mL/min/1.73m*2 Normal >[address] [facility] Comment on above: Result Comment: Calc ulations of estimated GFR are performed using the 2020 CKD-EPI Study Refit equation without the race variable for the IDMS-Traceable creatinine methods.https://jasn.asnjournals.org/content/early/ /ASN.0390614377 Performed By: #### 2 4323-8 ####BHANU Treviño (83189)[facility])07448 [place] [address] Glucose [Mass/Vol] 113 mg/dL High 74-99 [facility] Comment on above: Performed By: #### 2 4323-8 ####BHANU Treviño (75347)[facility])73035 [place] [address] Potassium [Moles/Vol] 4.5 mmol/L Normal 3.5-5.3 [facility] Comment on above: Performed By: #### 2 4323-8 ####BHANU Treviño (64734)[facility])32624 [place] [address] Protein [Mass/Vol] 6.0 g/dL Low 6.4-8.2 [facility] Comment on above: Performed By: #### 2 4323-8 ####BHANU Treviño (69269)[facility])06969 [place] [address] Sodium [Moles/Vol] 138 mmol/L Normal 136-145 [facility] Comment on above: Performed By: #### 2 4323-8 ####BHANU Treviño ([id number])[facility])[address] [place] [address] 26029 Urea nitrogen [Mass/Vol] 11 mg/dL Normal 6-23 [facility] Comment on above: Performed By: #### 2 4323-8 ####BHANU Treviño (37368)[facility])[address] [place] [address] 88202 Lactateon 01-28-2025 Lactate [Moles/Vol] 1.4 mmol/L Normal 0.4-2.[address] [facility] Comment on above: Order Comment: Venip uncture immediately after or during the administration of Metamizole may lead to falsely low results. Testing should be performed immediately prior to Metamizole dosing. Performed By: #### 2 524-7 ####BHANU Treviño (13104)[facility] ([facility])[address] [place] [address] 52014 Magnesiumon 01-28-2025 Magnesium [Mass/Vol] 1.92 mg/dL Normal 1.60-2.40 [facility] Comment on above: Performed By: #### 1 9123-9 ####BHANU Treviño (07203)[facility])[address] [place] [address] 619[address] Blood type and Indirect anti body screen panel (Bld)on 01-27-2025 ABO group Nom (Bld) A Normal [facility] Comment on above: Performed By: #### 3 4532-2 ####BHANU Treviño ([id number])[facility] ([facility])70039 [facility] [address] Blood group antibody screen Ql Negative [facility] Comment on above: Performed By: #### 3 4532-2 ####BHANU GREGORY L (82204)[facility] ([facility])71394 [facility] [address] D Ag Ql (Bld) Positive [facility] Comment on above: Performed By: #### 3 4532-2 ####BHANU Treviño (23584)[facility] ([facility])57678 [facility] [address] CBC W Auto Differential pane l (Bld)on 01-27-2025 Basophils (Bld) [#/Vol] 0.08 x10*3/uL Normal 0.00-0.10 [facility] Comment on above: Performed By: #### 5 7021-8 ####BHANU GREGORY L (14213)[facility] ([facility])49230 [place] [address] Basophils/100 WBC (Bld) 1.1 % Normal 0.0-2.[address] [facility] Comment on above: Performed By: #### 5 7021-8 ####BHANU GREGORY L (21370)[facility])96502 [place] [address] Eosinophils (Bld) [#/Vol] 0.07 x10*3/uL Normal 0.00-0.70 [facility] Comment on above: Performed By: #### 5 7021-8 ####BHANU GREGORY L ([id number])[facility] ([facility])29713 [place] [address] Eosinophils/100 WBC (Bld) 0.9 % Normal 0.0-6.0 [facility] Comment on above: Performed By: #### 5 7021-8 ####BHANU GREGORY L ([id number])[facility] ([facility])46841 [place] [address] Erythrocyte distribution width (RBC) [Ratio] 19.8 % High 11.5-14.5 [facility] Comment on above: Performed By: #### 5 7021-8 ####BHANU Treviño (53356)[facility] ([facility])46894 [place] [address] Hematocrit (Bld) [Volume fraction] 27.5 % Low 41.0-52.0 [facility] Comment on above: Performed By: #### 5 7021-8 ####BHANU Treviño ([id number])[facility] ([facility])[address] [place] [address] 94892 Hemoglobin (Bld) [Mass/Vol] 8.5 g/dL Low 13.5-17.5 [facility] Comment on above: Performed By: #### 5 7021-8 ####BHANU Treviño ([id number])[facility] ([facility])[address] [place] [address] 32536 Immature granulocytes (Bld) [#/Vol] 0.03 x10*3/uL Normal 0.00-0.70 [facility] Comment on above: Performed By: #### 5 7021-8 ####BHANU Treviño (27341)[facility] ([facility])24642 [place] [address] Immature granulocytes/100 WBC (Bld) 0.4 % Normal 0.0-0.9 [facility] Comment on above: Result Comment: Christine ture Granulocyte Count (IG) includes promyelocytes, myelocytes and metamyelocytes but does not include bands. Percent differential counts (%) should be interpreted in the context of the absolute cell counts (cells/UL). Performed By: #### 5 7021-8 ####BHANU Treviño ([id number])[facility] ([facility])57723 [place] [address] Lymphocytes (Bld) [#/Vol] 1.18 x10*3/uL Low 1.20-4.80 [facility] Comment on above: Performed By: #### 5 7021-8 ####BHANU Treviño ([id number])[facility] ([facility])[id number] [place] [address] 92982 Lymphocytes/100 WBC (Bld) 15.7 % Normal 13.0-44.0 [facility] Comment on above: Performed By: #### 5 7021-8 ####BHANU Treviño ([id number])[facility] ([facility])[address] [place] [address] 67173 MCH (RBC) [Entitic mass] 23.9 pg Low 26.0-34.0 [facility] Comment on above: Performed By: #### 5 7021-8 ####BHANU Treviño ([id number])[facility] ([facility])[address] [place] [address] 48044 MCHC (RBC) [Mass/Vol] 30.9 g/dL Low 32.0-36.0 [facility] Comment on above: Performed By: #### 5 7021-8 ####BHANU Treviño ([id number])[facility] ([facility])[address] [place] [address] [id number] MCV (RBC) [Entitic vol] 78 fL Low 80-[address] [facility] Comment on above: Performed By: #### 5 7021-8 ####BHANU Treviño ([id number])[facility] ([facility])[id number] [place] [address] [id number] Monocytes (Bld) [#/Vol] 1.05 x10*3/uL High 0.10-1.00 [facility] Comment on above: Performed By: #### 5 7021-8 ####BHANU Treviño ([id number])[facility] ([facility])[id number] [place] [address] [id number] Monocytes/100 WBC (Bld) 14.0 % Normal 2.0-10.[address] [facility] Comment on above: Performed By: #### 5 7021-8 ####BHANU Treviño ([id number])[facility] ([facility])[address] [place] [address] Neutrophils (Bld) [#/Vol] 5.09 x10*3/uL Normal 1.20-7.70 [facility] Comment on above: Result Comment: Perc ent differential counts (%) should be interpreted in the context of the absolute cell counts (cells/uL). Performed By: #### 5 7021-8 ####BHANU Treviño ([id number])[facility] ([facility])40422 [place] [address] Neutrophils/100 WBC (Bld) 67.9 % Normal 40.0-80.0 [facility] Comment on above: Performed By: #### 5 7021-8 ####BHANU Treviño ([id number])[facility] ([facility])02531 [place] [address] Nucleated RBC/100 WBC (Bld) [Ratio] 0.0 /100 WBCs Normal 0.0-0.0 [facility] Comment on above: Performed By: #### 5 7021-8 ####BHANU Treviño ([id number])[facility] ([facility])87981 [place] [address] Platelets (Bld) [#/Vol] 644 x10*3/uL High 150-450 [facility] Comment on above: Performed By: #### 5 7021-8 ####BHANU Treviño ([id number])[facility] ([facility])51743 [place] [address] RBC (Bld) [#/Vol] 3.55 x10*6/uL Low 4.50-5.90 [facility] Comment on above: Performed By: #### 5 7021-8 ####BHANU Treviño ([id number])[facility] ([facility])[address]507 [facility] [address] WBC (Bld) [#/Vol] 7.5 x10*3/uL Normal 4.4-11.[address] [facility] Comment on above: Performed By: #### 5 7021-8 ####BHANU Treviño ([id number])[facility] ([facility])54587 [place] [address] Comprehensive metabolic 2000 panelon 01-27-2025 Albumin BCP dye [Mass/Vol] 2.3 g/dL Low 3.4-5.0 [facility] Comment on above: Performed By: #### 2 4323-8 ####BHANU Treviño (26054)[facility] ([facility])51039 [place] [address] ALP [Catalytic activity/Vol] 70 U/L Normal 33-120 [facility] Comment on above: Performed By: #### 2 4323-8 ####BHANU Treviño ([id number])[facility] ([facility])46397 [place] [address] ALT With P-5'-P [Catalytic activity/Vol] 40 U/L Normal 10-52 [facility] Comment on above: Result Comment: Sydni ents treated with Sulfasalazine may generate falsely decreased results for ALT. Performed By: #### 2 4323-8 ####BHANU Treviño ([id number])[facility] ([facility])77988 [place] [address] Anion gap [Moles/Vol] 11 mmol/L Normal 10-20 [facility] Comment on above: Performed By: #### 2 4323-8 ####BHANU Treviño ([id number])[facility] ([facility])96088 [place] [address] AST With P-5'-P [Catalytic activity/Vol] 53 U/L High 9-39 [facility] Comment on above: Performed By: #### 2 4323-8 ####BHANU Treviño ([id number])[facility] ([facility])40902 [place] [address] Bilirubin [Mass/Vol] 0.4 mg/dL Normal 0.0-1.2 [facility] Comment on above: Performed By: #### 2 4323-8 ####BHANU MATOSER L ([id number])[facility] ([facility])38354 [place] [address] Calcium [Mass/Vol] 8.1 mg/dL Low 8.6-10.6 [facility] Comment on above: Performed By: #### 2 4323-8 ####BHANU FLEMINGMOTZER L (73468)[facility] ([facility])05013 [place] [address] Chloride [Moles/Vol] 101 mmol/L Normal 98-107 [facility] Comment on above: Performed By: #### 2 4323-8 ####BAHNU FLEMINGMOTZER L (35155)[facility] ([facility])79560 [place] [address] CO2 [Moles/Vol] 29 mmol/L Normal 21-32 [facility] Comment on above: Performed By: #### 2 4323-8 ####BHANU GREGORY L (44851)[facility] ([facility])09276 [place] [address] Creatinine [Mass/Vol] 1.22 mg/dL Normal 0.50-1.30 [facility] Comment on above: Performed By: #### 2 4323-8 ####BHANU LAUREANOTZER L ([id number])[facility] ([facility])09633 [place] [address] Glomerular filtration rate/1.73 sq M.predicted 72 mL/min/1.73m*2 Normal >[address] [facility] Comment on above: Result Comment: Calc ulations of estimated GFR are performed using the 2020 CKD-EPI Study Refit equation without the race variable for the IDMS-Traceable creatinine methods.https://jasn.asnjournals.org/content/ /ASN.4076447445 Performed By: #### 2 4323-8 ####BHANU LAUREANOTZALANNA L ([id number])[facility] ([facility])89156 [place] [address] Glucose [Mass/Vol] 86 mg/dL Normal 74-99 [facility] Comment on above: Performed By: #### 2 4323-8 ####BHANU Treviño ([id number])[facility] ([facility])26782 [place] [address] Potassium [Moles/Vol] 4.1 mmol/L Normal 3.5-5.3 [facility] Comment on above: Performed By: #### 2 4323-8 ####BHANU Treviño (93219)[facility] ([facility])43238 [place] [address] Protein [Mass/Vol] 6.5 g/dL Normal 6.4-8.2 [facility] Comment on above: Performed By: #### 2 4323-8 ####BHANU Treviño (86061)[facility] ([facility])78942 [place] [address] Sodium [Moles/Vol] 137 mmol/L Normal 136-145 [facility] Comment on above: Performed By: #### 2 4323-8 ####BHANU Treviño (50296)[facility] ([facility])00697 [place] [address] Urea nitrogen [Mass/Vol] 8 mg/dL Normal 6-23 [facility] Comment on above: Performed By: #### 2 4323-8 ####BHANU Treviño ([id number])[facility] ([facility])72280 [place] [address] Magnesiumon 01-27-2025 Magnesium [Mass/Vol] 1.92 mg/dL Normal 1.60-2.40 [facility] Comment on above: Performed By: #### 1 9123-9 ####BHANU Treviño (18932)[facility] ([facility])25092 [place] [address] CBC W Auto Differential pane l (Bld)on 01-26-2025 Basophils (Bld) [#/Vol] 0.07 x10*3/uL Normal 0.00-0.10 [facility] Comment on above: Performed By: #### 5 7021-8 ####BHANU Treviño ([id number])[facility] ([facility])39581 [place] [address] Basophils/100 WBC (Bld) 0.8 % Normal 0.0-2.[address] [facility] Comment on above: Performed By: #### 5 7021-8 ####BHANU Treviño (65981)[facility] ([facility])61061 [place] [address] Eosinophils (Bld) [#/Vol] 0.40 x10*3/uL Normal 0.00-0.70 [facility] Comment on above: Performed By: #### 5 7021-8 ####BHANU Treviño ([id number])[facility] ([facility])[address] [place] [address] Eosinophils/100 WBC (Bld) 4.6 % Normal 0.0-6.0 [facility] Comment on above: Performed By: #### 5 7021-8 ####BHANU Treviño (43740)[facility] ([facility])[address] [place] [address] Erythrocyte distribution width (RBC) [Ratio] 19.9 % High 11.5-14.5 [facility] Comment on above: Performed By: #### 5 7021-8 ####BHANU Treviño (85292)[facility] ([facility])[address] [place] [address] Hematocrit (Bld) [Volume fraction] 28.3 % Low 41.0-52.0 [facility] Comment on above: Performed By: #### 5 7021-8 ####BHANU Treviño (33856)[facility] ([facility])91587 [place] [address] Hemoglobin (Bld) [Mass/Vol] 8.7 g/dL Low 13.5-17.5 [facility] Comment on above: Performed By: #### 5 7021-8 ####BHANU Treviño (26131)[facility] ([facility])07688 [place] [address] Immature granulocytes (Bld) [#/Vol] 0.04 x10*3/uL Normal 0.00-0.70 [facility] Comment on above: Performed By: #### 5 7021-8 ####BHANU Treviño (28035)[facility] ([facility])25168 [place] [address] Immature granulocytes/100 WBC (Bld) 0.5 % Normal 0.0-0.9 [facility] Comment on above: Result Comment: Christine ture Granulocyte Count (IG) includes promyelocytes, myelocytes and metamyelocytes but does not include bands. Percent differential counts (%) should be interpreted in the context of the absolute cell counts (cells/UL). Performed By: #### 5 7021-8 ####BHANU Treviño ([id number])[facility] ([facility])33338 [place] [address] Lymphocytes (Bld) [#/Vol] 1.23 x10*3/uL Normal 1.20-4.80 [facility] Comment on above: Performed By: #### 5 7021-8 ####BHANU Treviño ([id number])[facility] ([facility])14959 [place] [address] Lymphocytes/100 WBC (Bld) 14.1 % Normal 13.0-44.0 [facility] Comment on above: Performed By: #### 5 7021-8 ####BHANU Treviño (36554)[facility] ([facility])34022 [place] [address] MCH (RBC) [Entitic mass] 24.2 pg Low 26.0-34.0 [facility] Comment on above: Performed By: #### 5 7021-8 ####BHANU Treviño (36710)[facility] ([facility])15643 [place] [address] MCHC (RBC) [Mass/Vol] 30.7 g/dL Low 32.0-36.0 [facility] Comment on above: Performed By: #### 5 7021-8 ####BHANU Treviño (13666)[facility] ([facility])47434 [place] [address] MCV (RBC) [Entitic vol] 79 fL Low 80-[address] [facility] Comment on above: Performed By: #### 5 7021-8 ####BHANU Treviño (96260)[facility] ([facility])57309 [place] [address] Monocytes (Bld) [#/Vol] 1.06 x10*3/uL High 0.10-1.00 [facility] Comment on above: Performed By: #### 5 7021-8 ####BHANU Treviño (39047)[facility] ([facility])96574 [place] [address] Monocytes/100 WBC (Bld) 12.2 % Normal 2.0-10.[address] [facility] Comment on above: Performed By: #### 5 7021-8 ####BHANU Treviño (40489)[facility] ([facility])35652 [place] [address] Neutrophils (Bld) [#/Vol] 5.92 x10*3/uL Normal 1.20-7.70 [facility] Comment on above: Result Comment: Perc ent differential counts (%) should be interpreted in the context of the absolute cell counts (cells/uL). Performed By: #### 5 7021-8 ####BHANU Treviño (78024)[facility] ([facility])02121 [place] [address] Neutrophils/100 WBC (Bld) 67.8 % Normal 40.0-80.0 [facility] Comment on above: Performed By: #### 5 7021-8 ####BHANU Treviño (01439)[facility] ([facility])53217 [place] [address] Nucleated RBC/100 WBC (Bld) [Ratio] 0.0 /100 WBCs Normal 0.0-0.0 [facility] Comment on above: Performed By: #### 5 7021-8 ####BHANU Treviño ([id number])[facility] ([facility])09210 [place] [address] Platelets (Bld) [#/Vol] 713 x10*3/uL High 150-450 [facility] Comment on above: Performed By: #### 5 7021-8 ####BHANU Treviño ([id number])[facility] ([facility])[address] [place] [address] RBC (Bld) [#/Vol] 3.60 x10*6/uL Low 4.50-5.90 [facility] Comment on above: Performed By: #### 5 7021-8 ####BHANU Treviño ([id number])[facility] ([facility])[address] [place] [address] WBC (Bld) [#/Vol] 8.7 x10*3/uL Normal 4.4-11.[address] [facility] Comment on above: Performed By: #### 5 7021-8 ####BHANU Treviño (79932)[facility] ([facility])[address] [place] [address] Comprehensive metabolic 2000 panelon 01-26-2025 Albumin BCP dye [Mass/Vol] 2.4 g/dL Low 3.4-5.0 [facility] Comment on above: Performed By: #### 2 4323-8 ####BHANU Treviño (04462)[facility] ([facility])07957 [place] [address] ALP [Catalytic activity/Vol] 74 U/L Normal 33-120 [facility] Comment on above: Performed By: #### 2 4323-8 ####BHANU Treviño (05108)[facility] ([facility])[address]07 [facility] [place] [address] ALT With P-5'-P [Catalytic activity/Vol] 38 U/L Normal 10-52 [facility] Comment on above: Result Comment: Sydni ents treated with Sulfasalazine may generate falsely decreased results for ALT. Performed By: #### 2 4323-8 ####BHANU GREGORY L ([id number])[facility] ([facility])41078 [place] [address] Anion gap [Moles/Vol] 12 mmol/L Normal 10-20 [facility] Comment on above: Performed By: #### 2 4323-8 ####BHANU Treviño (69183)[facility] ([facility])35821 [place] [address] AST With P-5'-P [Catalytic activity/Vol] 55 U/L High 9-39 [facility] Comment on above: Performed By: #### 2 4323-8 ####BHANU Treviño (98419)[facility] ([facility])62553 [place] [address] Bilirubin [Mass/Vol] 0.3 mg/dL Normal 0.0-1.2 [facility] Comment on above: Performed By: #### 2 4323-8 ####BHANU Treviño (04414)[facility] ([facility])30214 [place] [address] Calcium [Mass/Vol] 8.3 mg/dL Low 8.6-10.6 [facility] Comment on above: Performed By: #### 2 4323-8 ####BHANU GREGORY L (21911)[facility] ([facility])28536 [place] [address] Chloride [Moles/Vol] 102 mmol/L Normal 98-107 [facility] Comment on above: Performed By: #### 2 4323-8 ####BHANU GREGORY L (94655)[facility] ([facility])[address]177 [place] [address] CO2 [Moles/Vol] 29 mmol/L Normal 21-32 [facility] Comment on above: Performed By: #### 2 4323-8 ####BHANU Treviño (49167)[facility] ([facility])[address]85 [place] [address] Creatinine [Mass/Vol] 1.29 mg/dL Normal 0.50-1.30 [facility] Comment on above: Performed By: #### 2 4323-8 ####BHANU Treviño (55543)[facility] ([facility])06466 [place] [address] Glomerular filtration rate/1.73 sq M.predicted 67 mL/min/1.73m*2 Normal >[address] [facility] Comment on above: Result Comment: Calc ulations of estimated GFR are performed using the 2020 CKD-EPI Study Refit equation without the race variable for the IDMS-Traceable creatinine methods.https://jasn.asnjournals.org/content/early/ /ASN.0972727749 Performed By: #### 2 4323-8 ####BHANU Treviño (18781)[facility] ([facility])79803 [place] [address] Glucose [Mass/Vol] 100 mg/dL High 74-99 [facility] Comment on above: Performed By: #### 2 4323-8 ####BHANU Treviño (27498)[facility] ([facility])[address]37 [place] [address] Potassium [Moles/Vol] 4.0 mmol/L Normal 3.5-5.3 [facility] Comment on above: Performed By: #### 2 4323-8 ####BHANU Treviño (60389)[facility] ([facility])41131 [place] [address] Protein [Mass/Vol] 6.6 g/dL Normal 6.4-8.2 [facility] Comment on above: Performed By: #### 2 4323-8 ####BHANU MATOSER L (39206)[facility] ([facility])[address] [place] [address] Sodium [Moles/Vol] 139 mmol/L Normal 136-145 [facility] Comment on above: Performed By: #### 2 4323-8 ####BHANU SCHMOTZER L (29772)[facility] ([facility])[address] [place] [address] Urea nitrogen [Mass/Vol] 9 mg/dL Normal 6-23 [facility] Comment on above: Performed By: #### 2 4323-8 ####BHANU MATOSER L (59867)[facility] ([facility])[address] [place] [address] Magnesiumon 01-26-2025 Magnesium [Mass/Vol] 2.06 mg/dL Normal 1.60-2.40 [facility] Comment on above: Performed By: #### 1 9123-9 ####BHANU FLEMINGMOTZER L (13826)[facility] ([facility])[address] [place] [address] CBC W Auto Differential pane l (Bld)on 01-25-2025 Erythrocyte distribution width (RBC) [Ratio] 19.8 % High 11.5-14.5 [facility] Comment on above: Order Comment: [...] By: #### 5 7021-8 ####BHANU FLEMINGMOTZER L (95268)[facility] ([facility])14517 [place] [address] Hematocrit (Bld) [Volume fraction] 28.8 % Low 41.0-52.0 [facility] Comment on above: Order Comment: [...] Performed By: #### 5 7021-8 ####BHANU Treviño (05975)[facility] ([facility])[address] [place] [address] Hemoglobin (Bld) [Mass/Vol] 9.0 g/dL Low 13.5-17.5 [facility] Comment on above: Order Comment: [...] being reported. Performed By: #### 5 7021-8 ####BAHNU Treviño (20001)[facility] ([facility])55471 [place] [address] Immature granulocytes (Bld) [#/Vol] 0.06 x10*3/uL Normal 0.00-0.70 [facility] Comment on above: Order Comment: [...] Performed By: #### 5 7021-8 ####BHANU Treviño (78471)[facility] ([facility])59045 [place] [address] Immature granulocytes/100 WBC (Bld) 0.6 % Normal 0.0-0.9 [facility] Comment on above: Order Comment: [...] Performed By: #### 5 7021-8 ####BHANU Treviño (55035)[facility] ([facility])90192 [place] [address] MCH (RBC) [Entitic mass] 24.6 pg Low 26.0-34.0 [facility] Comment on above: Order Comment: [...] Performed By: #### 5 7021-8 ####BHANU Treviño (09941)[facility] ([facility])49918 [place] [address] MCHC (RBC) [Mass/Vol] 31.3 g/dL Low 32.0-36.0 [facility] Comment on above: Order Comment: [...] Performed By: #### 5 7021-8 ####BHANU Treviño (90362)[facility] ([facility])90955 [place] [address] MCV (RBC) [Entitic vol] 79 fL Low 80-[address] [facility] Comment on above: Order Comment: The [...] Performed By: #### 5 7021-8 ####BHANU Treviño (90235)[facility] ([facility])33212 [place] [address] Nucleated RBC/100 WBC (Bld) [Ratio] 0.0 /100 WBCs Normal 0.0-0.0 [facility] Comment on above: Order Comment: [...] Performed By: #### 5 7021-8 ####BHANU Treviño (59322)[facility] ([facility])63757 [place] [address] Platelets (Bld) [#/Vol] 753 x10*3/uL High 150-450 [facility] Comment on above: Order Comment: [...] Performed By: #### 5 7021-8 ####BHANU Treviño (21692)[facility] ([facility])24950 [place] [address] RBC (Bld) [#/Vol] 3.66 x10*6/uL Low 4.50-5.90 [facility] Comment on above: Order Comment: The [...] Performed By: #### 5 7021-8 ####BHANU Treviño (40445)[facility] ([facility])08416 [place] [address] WBC (Bld) [#/Vol] 10.7 x10*3/uL Normal 4.4-11.3 [facility] Comment on above: Order Comment: The [...] Performed By: #### 5 7021-8 ####BHANU Treviño (50272)[facility] ([facility])54695 [place] [address] Comprehensive metabolic 2000 panelon 01-25-2025 Albumin BCP dye [Mass/Vol] 2.5 g/dL Low 3.4-5.0 [facility] Comment on above: Performed By: #### 2 4323-8 ####BHANU Treviño (21725)[facility] ([facility])40658 [place] [address] ALP [Catalytic activity/Vol] 69 U/L Normal 33-120 [facility] Comment on above: Performed By: #### 2 4323-8 ####BHANU Treviño (21258)[facility] ([facility])27724 [place] [address] ALT With P-5'-P [Catalytic activity/Vol] 34 U/L Normal 10-52 [facility] Comment on above: Result Comment: Sydni ents treated with Sulfasalazine may generate falsely decreased results for ALT. Performed By: #### 2 4323-8 ####BHANU Treviño (85496)[facility] ([facility])40406 [place] [address] Anion gap [Moles/Vol] 14 mmol/L Normal 10-20 [facility] Comment on above: Performed By: #### 2 4323-8 ####BHANU Treviño (35655)[facility] ([facility])09947 [place] [address] AST With P-5'-P [Catalytic activity/Vol] 43 U/L High 9-39 [facility] Comment on above: Performed By: #### 2 4323-8 ####BHANU Treviño (44144)[facility] ([facility])66427 [place] [address] Bilirubin [Mass/Vol] 0.4 mg/dL Normal 0.0-1.2 [facility] Comment on above: Performed By: #### 2 4323-8 ####BHANU Treviño (41306)[facility] ([facility])11676 [place] [address] Calcium [Mass/Vol] 8.5 mg/dL Low 8.6-10.6 [facility] Comment on above: Performed By: #### 2 4323-8 ####BHANU Treviño (70357)[facility] ([facility])79603 [place] [address] Chloride [Moles/Vol] 101 mmol/L Normal 98-107 [facility] Comment on above: Performed By: #### 2 4323-8 ####BHANU Treviño (17244)[facility] ([facility])42147 [place] [address] CO2 [Moles/Vol] 26 mmol/L Normal 21-32 [facility] Comment on above: Performed By: #### 2 4323-8 ####BHANU Treviño (29303)[facility] ([facility])13050 [place] [address] Creatinine [Mass/Vol] 1.11 mg/dL Normal 0.50-1.30 [facility] Comment on above: Performed By: #### 2 4323-8 ####BHANU GREGORY L (24556)[facility] ([facility])72787 [place] [address] Glomerular filtration rate/1.73 sq M.predicted 80 mL/min/1.73m*2 Normal >[address] [facility] Comment on above: Result Comment: Calc ulations of estimated GFR are performed using the 2020 CKD-EPI Study Refit equation without the race variable for the IDMS-Traceable creatinine methods.https://jasn.asnjournals.org/content/early/ /ASN.2675258867 Performed By: #### 2 4323-8 ####BHANU Treviño (38411)[facility] ([facility])45373 [place] [address] Glucose [Mass/Vol] 100 mg/dL High 74-99 [facility] Comment on above: Performed By: #### 2 4323-8 ####BHANU Treviño (07547)[facility] ([facility])29855 [place] [address] Potassium [Moles/Vol] 3.9 mmol/L Normal 3.5-5.3 [facility] Comment on above: Performed By: #### 2 4323-8 ####BHANU GREGORY L (77962)[facility] ([facility])69612 [place] [address] Protein [Mass/Vol] 6.8 g/dL Normal 6.4-8.2 [facility] Comment on above: Performed By: #### 2 4323-8 ####BHANU Treviño (95293)[facility] ([facility])02106 [place] [address] Sodium [Moles/Vol] 137 mmol/L Normal 136-145 [facility] Comment on above: Performed By: #### 2 4323-8 ####BHANU Treviño (71960)[facility] ([facility])[id number] [place] [address] Urea nitrogen [Mass/Vol] 8 mg/dL Normal 6-23 [facility] Comment on above: Performed By: #### 2 4323-8 ####BHANU Treviño (16176)[facility] ([facility])[id number] [place] [address] 70674 Magnesiumon 01-25-2025 Magnesium [Mass/Vol] 2.08 mg/dL Normal 1.60-2.40 [facility] Comment on above: Performed By: #### 1 9123-9 ####BHANU Treviño ([id number])[facility] ([facility])[id number] [place] [address] 15248 Manual differential performe d Ql (Bld)on 01-25-2025 Band form neutrophils (Bld) [#/Vol] 0.28 x10*3/uL Normal 0.00-0.70 [facility] Comment on above: Performed By: #### 5 0957-0 ####BHANU Treviño ([id number])[facility] ([facility])[id number] [place] [address] 85735 Band form neutrophils/100 WBC (Bld) 2.6 % Normal 0.0-5.0 [facility] Comment on above: Performed By: #### 5 0957-0 ####BHANU Treviño ([id number])[facility] ([facility])[id number] [place] [address] 85211 Basophils (Bld) [#/Vol] 0.00 x10*3/uL Normal 0.00-0.10 [facility] Comment on above: Performed By: #### 5 0957-0 ####BHANU Treviño ([id number])[facility] ([facility])[address] [place], [place] [address] Basophils/100 WBC (Bld) 0.0 % Normal 0.0-2.[address] [facility] Comment on above: Performed By: #### 5 0957-0 ####BHANU Treviño ([id number])[facility] ([facility])[address]68 [place] [address] Cells Counted Total (Bld) [#] 116 Normal [facility] Comment on above: Performed By: #### 5 0957-0 ####BHANU Treviño ([id number])[facility] ([facility])[address]48 [place] [address] Eosinophils (Bld) [#/Vol] 0.09 x10*3/uL Normal 0.00-0.70 [facility] Comment on above: Performed By: #### 5 0957-0 ####BHANU Treviño ([id number])[facility] ([facility])[address]753 [place] [address] Eosinophils/100 WBC (Bld) 0.8 % Normal 0.0-6.0 [facility] Comment on above: Performed By: #### 5 0957-0 ####BHANU Treviño ([id number])[facility] ([facility])26769 [place] [address] Hypochromia Ql (Bld) Mild Normal [facility] Comment on above: Performed By: #### 5 0957-0 ####BHANU Treviño (66034)[facility] ([facility])71085 [place] [address] Lymphocytes (Bld) [#/Vol] 0.46 x10*3/uL Low 1.20-4.80 [facility] Comment on above: Performed By: #### 5 0957-0 ####BHANU Treviño ([id number])[facility] ([facility])63905 [place] [address] Lymphocytes/100 WBC (Bld) 4.3 % Normal 13.0-44.0 [facility] Comment on above: Performed By: #### 5 0957-0 ####BHANU Treviño (21705)[facility] ([facility])88124 [place] [address] Monocytes (Bld) [#/Vol] 0.46 x10*3/uL Normal 0.10-1.00 [facility] Comment on above: Performed By: #### 5 0957-0 ####BHANU Treviño (44188)[facility] ([facility])[address]1111 [place] [address] Monocytes/100 WBC (Bld) 4.3 % Normal 2.0-10.[address] [facility] Comment on above: Performed By: #### 5 0957-0 ####BHANU Treviño ([id number])[facility] ([facility])[id number] [place] [address] Neutrophils (Bld) [#/Vol] 9.60 x10*3/uL High 1.20-7.70 [facility] Comment on above: Performed By: #### 5 0957-0 ####BHANU Treviño ([id number])[facility] ([facility])51251 [place] [address] RBC morphology finding Nom (Bld) See Below Normal [facility] Comment on above: Performed By: #### 5 0957-0 ####BHANU Treviño (47202)[facility] ([facility])[address] [place] [address] Segmented neutrophils (Bld) [#/Vol] 9.32 x10*3/uL High 1.20-7.00 [facility] Comment on above: Performed By: #### 5 0957-0 ####BHANU Treviño ([id number])[facility] ([facility])45408 [place] [address] Segmented neutrophils/100 WBC (Bld) 87.1 % Normal 40.0-80.0 [facility] Comment on above: Result Comment: Perc ent differential counts (%) should be interpreted in the context of the absolute cell counts (cells/uL). Performed By: #### 5 0957-0 ####BHANU Treviño (85324)[facility] ([facility])[address] [place] [address] Target cells LM Ql (Bld) Few Normal [facility] Comment on above: Performed By: #### 5 0957-0 ####BHANU Treviño (80402)[facility] ([facility])[address] [place] [address] Variant lymphocytes (Bld) [#/Vol] 0.10 x10*3/uL Normal 0.00-0.50 [facility] Comment on above: Performed By: #### 5 0957-0 ####BHANU Treviño (48596)[facility] ([facility])[address] [place] [address] 32343 Variant lymphocytes/100 WBC (Bld) 0.9 % Normal 0.0-2.0 [facility] Comment on above: Performed By: #### 5 0957-0 ####BHANU Treviño (77482)[facility] ([facility])[address] [place] [address] Bacteria identifiedon 2024 Bacteria identified Cx Nom (Unsp spec) Abnormal [facility] Comment on above: Performed By: #### 6 463-4 ####BHANU Treviño ([id number])[facility] ([facility])[address] [place] [address] Blood type and Indirect anti body screen panel (Bld)on 01-24-2025 ABO group Nom (Bld) A Normal [facility] Comment on above: Performed By: #### 3 4532-2 ####BHANU Treviño ([id number])[facility] [place] [address] Blood group antibody screen Ql Negative Normal [facility] Comment on above: Performed By: #### 3 4532-2 ####BHANU Treviño (60550)[facility] ([facility])[address]75 [facility] [address] D Ag Ql (Bld) Positive Normal [facility] Comment on above: Performed By: #### 3 4532-2 ####BHANU Treviño (36066)[facility] ([facility])[address] [place] [address] CBC W Auto Differential pane l (Bld)on 01-24-2025 Basophils (Bld) [#/Vol] 0.07 x10*3/uL Normal 0.00-0.10 [facility] Comment on above: Performed By: #### 5 7021-8 ####BHANU Treviño ([id number])[facility] ([facility])[address]016 [place] [address] Basophils/100 WBC (Bld) 0.7 % Normal 0.0-2.[address] [facility] Comment on above: Performed By: #### 5 7021-8 ####BHANU Treviño (41743)[facility] ([facility])[address]12 [place] [address] Eosinophils (Bld) [#/Vol] 0.31 x10*3/uL Normal 0.00-0.70 [facility] Comment on above: Performed By: #### 5 7021-8 ####BHANU Treviño ([id number])[facility] ([facility])65871 [place] [address] Eosinophils/100 WBC (Bld) 3.3 % Normal 0.0-6.0 [facility] Comment on above: Performed By: #### 5 7021-8 ####BAHNU Treviño (74500)[facility] ([facility])[address]150 [place] [address] Erythrocyte distribution width (RBC) [Ratio] 19.7 % High 11.5-14.5 [facility] Comment on above: Performed By: #### 5 7021-8 ####BHANU Treviño ([id number])[facility] ([facility])56735 [place] [address] Hematocrit (Bld) [Volume fraction] 27.2 % Low 41.0-52.0 [facility] Comment on above: Performed By: #### 5 7021-8 ####BHANU Treviño (60378)[facility] ([facility])36988 [place] [address] Hemoglobin (Bld) [Mass/Vol] 8.6 g/dL Low 13.5-17.5 [facility] Comment on above: Performed By: #### 5 7021-8 ####BHANU Treviño ([id number])[facility] ([facility])23727 [place] [address] Immature granulocytes (Bld) [#/Vol] 0.06 x10*3/uL Normal 0.00-0.70 [facility] Comment on above: Performed By: #### 5 7021-8 ####BHANU Treviño (72373)[facility] ([facility])34455 [place] [address] Immature granulocytes/100 WBC (Bld) 0.6 % Normal 0.0-0.9 [facility] Comment on above: Result Comment: Christine ture Granulocyte Count (IG) includes promyelocytes, myelocytes and metamyelocytes but does not include bands. Percent differential counts (%) should be interpreted in the context of the absolute cell counts (cells/UL). Performed By: #### 5 7021-8 ####BHANU Treviño (32654)[facility] ([facility])11210 [place] [address] Lymphocytes (Bld) [#/Vol] 1.12 x10*3/uL Low 1.20-4.80 [facility] Comment on above: Performed By: #### 5 7021-8 ####BHANU Treviño ([id number])[facility] ([facility])27947 [place] [address] Lymphocytes/100 WBC (Bld) 11.8 % Normal 13.0-44.0 [facility] Comment on above: Performed By: #### 5 7021-8 ####BHANU Treviño (66804)[facility] ([facility])25313 [place] [address] MCH (RBC) [Entitic mass] 24.5 pg Low 26.0-34.0 [facility] Comment on above: Performed By: #### 5 7021-8 ####BHANU Treviño ([id number])[facility] ([facility])[address] [place] [address] MCHC (RBC) [Mass/Vol] 31.6 g/dL Low 32.0-36.0 [facility] Comment on above: Performed By: #### 5 7021-8 ####BHANU Treviño ([id number])[facility] ([facility])[address] [place] [address] MCV (RBC) [Entitic vol] 78 fL Low 80-[address] [facility] Comment on above: Performed By: #### 5 7021-8 ####BHANU Treviño ([id number])[facility] ([facility])[address] [place] [address] Monocytes (Bld) [#/Vol] 1.07 x10*3/uL High 0.10-1.00 [facility] Comment on above: Performed By: #### 5 7021-8 ####BHANU Treviño ([id number])[facility] ([facility])[address] [place] [address] 70983 Monocytes/100 WBC (Bld) 11.3 % Normal 2.0-10.[address] [facility] Comment on above: Performed By: #### 5 7021-8 ####BHANU Treviño (06527)[facility])[address] [place] [address] 858[address] Neutrophils (Bld) [#/Vol] 6.87 x10*3/uL Normal 1.20-7.70 [facility] Comment on above: Result Comment: Perc ent differential counts (%) should be interpreted in the context of the absolute cell counts (cells/uL). Performed By: #### 5 7021-8 ####BHANU Treviño ([id number])[facility] ([facility])46399 [place] [address] Neutrophils/100 WBC (Bld) 72.3 % Normal 40.0-80.0 [facility] Comment on above: Performed By: #### 5 7021-8 ####BHANU Treviño ([id number])[facility] ([facility])27821 [place] [address] Nucleated RBC/100 WBC (Bld) [Ratio] 0.0 /100 WBCs Normal 0.0-0.0 [facility] Comment on above: Performed By: #### 5 7021-8 ####BHANU Treviño (68299)[facility] ([facility])16866 [place] [address] Platelets (Bld) [#/Vol] 722 x10*3/uL High 150-450 [facility] Comment on above: Performed By: #### 5 7021-8 ####BHANU rTeviño (73370)[facility] ([facility])47439 [place] [address] RBC (Bld) [#/Vol] 3.51 x10*6/uL Low 4.50-5.90 [facility] Comment on above: Performed By: #### 5 7021-8 ####BHANU Treviño (50534)[facility] ([facility])12317 [place] [address] WBC (Bld) [#/Vol] 9.5 x10*3/uL Normal 4.4-11.[address] [facility] Comment on above: Performed By: #### 5 7021-8 ####BHANU Treviño (83820)[facility] ([facility])20200 [place] [address] Basophils (Bld) [#/Vol] 0.07 x10*3/uL Normal 0.00-0.10 [facility] Comment on above: Performed By: #### 5 7021-8 ####BHANU Treviño (77515)[facility] ([facility])27711 [place] [address] Basophils/100 WBC (Bld) 0.8 % Normal 0.0-2.[address] [facility] Comment on above: Performed By: #### 5 7021-8 ####BHANU Treviño (34605)[facility] ([facility])[address] [place] [address] 76988 Eosinophils (Bld) [#/Vol] 0.09 x10*3/uL Normal 0.00-0.70 [facility] Comment on above: Performed By: #### 5 7021-8 ####BHANU Treviño (96786)[facility] ([facility])[address] [place] [address] Eosinophils/100 WBC (Bld) 1.1 % Normal 0.0-6.0 [facility] Comment on above: Performed By: #### 5 7021-8 ####BHANU Treviño ([id number])[facility] ([facility])28318 [place] [address] Erythrocyte distribution width (RBC) [Ratio] 19.7 % High 11.5-14.5 [facility] Comment on above: Performed By: #### 5 7021-8 ####BHANU Treviño (81593)[facility] ([facility])[address] [place] [address] 49947 Hematocrit (Bld) [Volume fraction] 27.4 % Low 41.0-52.0 [facility] Comment on above: Performed By: #### 5 7021-8 ####BHANU Treviño ([id number])[facility] ([facility])[address] [place] [address] 59826 Hemoglobin (Bld) [Mass/Vol] 8.6 g/dL Low 13.5-17.5 [facility] Comment on above: Performed By: #### 5 7021-8 ####BHANU Treviño ([id number])[facility] ([facility])[address]3600 [place] [address] Immature granulocytes (Bld) [#/Vol] 0.04 x10*3/uL Normal 0.00-0.70 [facility] Comment on above: Performed By: #### 5 7021-8 ####BHANU Treviño (87512)[facility] ([facility])28354 [place] [address] Immature granulocytes/100 WBC (Bld) 0.5 % Normal 0.0-0.9 [facility] Comment on above: Result Comment: Christine ture Granulocyte Count (IG) includes promyelocytes, myelocytes and metamyelocytes but does not include bands. Percent differential counts (%) should be interpreted in the context of the absolute cell counts (cells/UL). Performed By: #### 5 7021-8 ####BHANU Treviño (82946)[facility] ([facility])75502 [place] [address] Lymphocytes (Bld) [#/Vol] 1.33 x10*3/uL Normal 1.20-4.80 [facility] Comment on above: Performed By: #### 5 7021-8 ####BHANU Treviño (81976)[facility] ([facility])28799 [place] [address] Lymphocytes/100 WBC (Bld) 15.8 % Normal 13.0-44.0 [facility] Comment on above: Performed By: #### 5 7021-8 ####BHANU Treviño (28900)[facility])59783 [place] [address] MCH (RBC) [Entitic mass] 24.1 pg Low 26.0-34.0 [facility] Comment on above: Performed By: #### 5 7021-8 ####BHANU GREGORY L (15919)[facility])30704 [place] [address] MCHC (RBC) [Mass/Vol] 31.4 g/dL Low 32.0-36.0 [facility] Comment on above: Performed By: #### 5 7021-8 ####BHANU Treviño (70248)[facility] ([facility])97232 [place] [address] MCV (RBC) [Entitic vol] 77 fL Low 80-[address] [facility] Comment on above: Performed By: #### 5 7021-8 ####BHANU Treviño (21150)[facility])[address] [place] [address] 33483 Monocytes (Bld) [#/Vol] 1.12 x10*3/uL High 0.10-1.00 [facility] Comment on above: Performed By: #### 5 7021-8 ####BHANU Treviño (59961)[facility])86082 [place] [address] Monocytes/100 WBC (Bld) 13.3 % Normal 2.0-10.[address] [facility] Comment on above: Performed By: #### 5 7021-8 ####BHANU Treviño (81997)[facility] ([facility])[address] [place] [address] 20850 Neutrophils (Bld) [#/Vol] 5.79 x10*3/uL Normal 1.20-7.70 [facility] Comment on above: Result Comment: Perc ent differential counts (%) should be interpreted in the context of the absolute cell counts (cells/uL). Performed By: #### 5 7021-8 ####BHANU Treviño (10919)[facility])31578 [place] [address] Neutrophils/100 WBC (Bld) 68.5 % Normal 40.0-80.0 [facility] Comment on above: Performed By: #### 5 7021-8 ####BHANU Treviño (59151)[facility])61325 [place] [address] Nucleated RBC/100 WBC (Bld) [Ratio] 0.0 /100 WBCs Normal 0.0-0.0 [facility] Comment on above: Performed By: #### 5 7021-8 ####BHANU Treviño (94157)[facility])[address] [place] [address] 36832 Platelets (Bld) [#/Vol] 737 x10*3/uL High 150-450 [facility] Comment on above: Performed By: #### 5 7021-8 ####BHANU GREGORY L (90130)[facility])[address] [place] [address] 65011 RBC (Bld) [#/Vol] 3.57 x10*6/uL Low 4.50-5.90 [facility] Comment on above: Performed By: #### 5 7021-8 ####BHANU GREGORY L (56946)[facility])[address] [place] [address] 86547 WBC (Bld) [#/Vol] 8.4 x10*3/uL Normal 4.4-11.[address] [facility] Comment on above: Performed By: #### 5 7021-8 ####BHANU Treviño (64714)[facility])[address] [place] [address] 70688 Comprehensive metabolic 2000 panelon 01-24-2025 Albumin BCP dye [Mass/Vol] 2.4 g/dL Low 3.4-5.0 [facility] Comment on above: Performed By: #### 2 4323-8 ####BHANU GREGORY L (28470)[facility])[address] [place] [address] 73330 ALP [Catalytic activity/Vol] 70 U/L Normal 33-120 [facility] Comment on above: Performed By: #### 2 4323-8 ####BHANU GREGORY L (64206)[facility])[address] [place] [address] 75665 ALT With P-5'-P [Catalytic activity/Vol] 38 U/L Normal 10-52 [facility] Comment on above: Result Comment: Sydni ents treated with Sulfasalazine may generate falsely decreased results for ALT. Performed By: #### 2 4323-8 ####BHANU Treviño (36760)[facility])85920 [place] [address] Anion gap [Moles/Vol] 13 mmol/L Normal 10-20 [facility] Comment on above: Performed By: #### 2 4323-8 ####BHANU Treviño (15260)[facility])04720 [place] [address] AST With P-5'-P [Catalytic activity/Vol] 46 U/L High 9-39 [facility] Comment on above: Performed By: #### 2 4323-8 ####BHANU GREGORY L (90366)[facility])97466 [place] [address] Bilirubin [Mass/Vol] 0.3 mg/dL Normal 0.0-1.2 [facility] Comment on above: Performed By: #### 2 4323-8 ####BHANU GREGORY L (88508)[facility])11299 [place] [address] Calcium [Mass/Vol] 8.5 mg/dL Low 8.6-10.6 [facility] Comment on above: Performed By: #### 2 4323-8 ####BHANU GREGORY L (63581)[facility])18273 [place] [address] Chloride [Moles/Vol] 101 mmol/L Normal 98-107 [facility] Comment on above: Performed By: #### 2 4323-8 ####BHANU GREGORY L (47220)[facility])74646 [place] [address] CO2 [Moles/Vol] 27 mmol/L Normal 21-32 [facility] Comment on above: Performed By: #### 2 4323-8 ####BHANU Treviño (57314)[facility])86456 [place] [address] Creatinine [Mass/Vol] 1.20 mg/dL Normal 0.50-1.30 [facility] Comment on above: Performed By: #### 2 4323-8 ####BHANU Treviño (64409)[facility])31302 [place] [address] Glomerular filtration rate/1.73 sq M.predicted 73 mL/min/1.73m*2 Normal >[address] [facility] Comment on above: Result Comment: Calc ulations of estimated GFR are performed using the 2020 CKD-EPI Study Refit equation without the race variable for the IDMS-Traceable creatinine methods.https://jasn.asnjournals.org/content/early /ASN.0093385965 Performed By: #### 2 4323-8 ####BHANU Treviño ([id number])[facility])75282 [place] [address] Glucose [Mass/Vol] 103 mg/dL High 74-99 [facility] Comment on above: Performed By: #### 2 4323-8 ####BHANU Treviño (66978)[facility])43332 [place] [address] Potassium [Moles/Vol] 4.1 mmol/L Normal 3.5-5.3 [facility] Comment on above: Performed By: #### 2 4323-8 ####BHANU Treviño (05800)[facility])90349 [place] [address] Protein [Mass/Vol] 6.5 g/dL Normal 6.4-8.2 [facility] Comment on above: Performed By: #### 2 4323-8 ####BHANU Treviño (05276)[facility])50236 [place] [address] Sodium [Moles/Vol] 137 mmol/L Normal 136-145 [facility] Comment on above: Performed By: #### 2 4323-8 ####BHANU Treviño (31427)[facility])12396 [place] [address] Urea nitrogen [Mass/Vol] 10 mg/dL Normal 6-23 [facility] Comment on above: Performed By: #### 2 4323-8 ####BHANU Treviño (23409)[facility])[address] [place] [address] 32675 Magnesiumon 01-24-2025 Magnesium [Mass/Vol] 1.89 mg/dL Normal 1.60-2.40 [facility] Comment on above: Performed By: #### 1 9123-9 ####BHANU Treviño ([id number])[facility])[id number] [place] [address] 09014 RBC shape Nom (Bld)on 2024 Hypochromia Ql (Bld) Mild Normal [facility] Comment on above: Performed By: #### 1 8225-3 ####BHANU Treviño (61389)[facility])[id number] [place] [address] 61574 RBC morphology finding Nom (Bld) See Below [facility] Comment on above: Performed By: #### 1 8225-3 ####BHANU Treviño (15175)[facility])[id number] [place] [address] 97212 Stomatocytes LM Ql (Bld) Few [facility] Comment on above: Performed By: #### 1 8225-3 ####BHANU Treviño (23461)[facility])[id number] [place] [address] 68917 CBC W Auto Differential pane l (Bld)on 01-23-2025 Basophils (Bld) [#/Vol] 0.08 x10*3/uL Normal 0.00-0.10 [facility] Comment on above: Performed By: #### 5 7021-8 ####BHANU Treviño ([id number])[facility])27317 [place] [address] Basophils/100 WBC (Bld) 0.9 % Normal 0.0-2.[address] [facility] Comment on above: Performed By: #### 5 7021-8 ####BHANU Treviño (71620)[facility])[id number] [place] [address] 34931 Eosinophils (Bld) [#/Vol] 0.57 x10*3/uL Normal 0.00-0.70 [facility] Comment on above: Performed By: #### 5 7021-8 ####BHANU Treviño (59842)[facility])[address] [place] [address] 85605 Eosinophils/100 WBC (Bld) 6.5 % Normal 0.0-6.0 [facility] Comment on above: Performed By: #### 5 7021-8 ####BHANU Treviño ([id number])[facility])[id number] [place] [address] 52612 Erythrocyte distribution width (RBC) [Ratio] 19.8 % High 11.5-14.5 [facility] Comment on above: Performed By: #### 5 7021-8 ####BHANU Treviño ([id number])[facility] ([facility])[id number] [place] [phone] Hematocrit (Bld) [Volume fraction] 26.8 % Low 41.0-52.0 [facility] Comment on above: Performed By: #### 5 7021-8 ####BHANU Treviño ([id number])[facility] ([facility])[id number] [place] [address] Hemoglobin (Bld) [Mass/Vol] 8.5 g/dL Low 13.5-17.5 [facility] Comment on above: Performed By: #### 5 7021-8 ####BHANU Treviño ([id number])[facility] ([facility])[id number] [place] [address] Immature granulocytes (Bld) [#/Vol] 0.05 x10*3/uL Normal 0.00-0.70 [facility] Comment on above: Performed By: #### 5 7021-8 ####BHANU Treviño ([id number])[facility] ([facility])[address] [place] [address] Immature granulocytes/100 WBC (Bld) 0.6 % Normal 0.0-0.9 [facility] Comment on above: Result Comment: Christine ture Granulocyte Count (IG) includes promyelocytes, myelocytes and metamyelocytes but does not include bands. Percent differential counts (%) should be interpreted in the context of the absolute cell counts (cells/UL). Performed By: #### 5 7021-8 ####BHANU Treviño ([id number])[facility] [facility])[id number] [place] [address] Lymphocytes (Bld) [#/Vol] 1.22 x10*3/uL Normal 1.20-4.80 [facility] Comment on above: Performed By: #### 5 7021-8 ####BHANU Treviño ([id number])[facility] ([facility])[address]01 [place] [address] Lymphocytes/100 WBC (Bld) 14.0 % Normal 13.0-44.0 [facility] Comment on above: Performed By: #### 5 7021-8 ####BHANU Treviño ([id number])[facility] ([facility])[address]75 [place] [address] MCH (RBC) [Entitic mass] 24.6 pg Low 26.0-34.0 [facility] Comment on above: Performed By: #### 5 7021-8 ####BHANU Treviño ([id number])[facility] ([facility])[address]88 [place] [address] MCHC (RBC) [Mass/Vol] 31.7 g/dL Low 32.0-36.0 [facility] Comment on above: Performed By: #### 5 7021-8 ####BHANU Treviño ([id number])[facility] ([facility])[address]318 [place] [address] MCV (RBC) [Entitic vol] 78 fL Low 80-[address] [facility] Comment on above: Performed By: #### 5 7021-8 ####BHANU Treviño ([id number])[facility] ([facility])[address]16 [place] [address] Monocytes (Bld) [#/Vol] 0.90 x10*3/uL Normal 0.10-1.00 [facility] Comment on above: Performed By: #### 5 7021-8 ####BHANU Treviño ([id number])[facility] ([facility])[address]33 [place] [address] Monocytes/100 WBC (Bld) 10.3 % Normal 2.0-10.[address] [facility] Comment on above: Performed By: #### 5 7021-8 ####BHAUN Treviño ([id number])[facility] ([facility])[address]808 [place] [address] Neutrophils (Bld) [#/Vol] 5.91 x10*3/uL Normal 1.20-7.70 [facility] Comment on above: Result Comment: Perc ent differential counts (%) should be interpreted in the context of the absolute cell counts (cells/uL). Performed By: #### 5 7021-8 ####BHANU Treviño ([id number])[facility] ([facility])40998 [place] [address] Neutrophils/100 WBC (Bld) 67.7 % Normal 40.0-80.0 [facility] Comment on above: Performed By: #### 5 7021-8 ####BHANU Treviño ([id number])[facility] ([facility])10825 [place] [address] Nucleated RBC/100 WBC (Bld) [Ratio] 0.0 /100 WBCs Normal 0.0-0.0 [facility] Comment on above: Performed By: #### 5 7021-8 ####BHANU GREGORY L ([id number])[facility] ([facility])33276 [place] [address] Platelets (Bld) [#/Vol] 760 x10*3/uL High 150-450 [facility] Comment on above: Performed By: #### 5 7021-8 ####BHANU Treviño ([id number])[facility] ([facility])[address] [place] [address]139 RBC (Bld) [#/Vol] 3.46 x10*6/uL Low 4.50-5.90 [facility] Comment on above: Performed By: #### 5 7021-8 ####BHANU Treviño ([id number])[facility])30541 [place] [address] WBC (Bld) [#/Vol] 8.7 x10*3/uL Normal 4.4-11.[address] [facility] Comment on above: Performed By: #### 5 7021-8 ####BHANU Treviño ([id number])[facility])74143 [place] [address] Basophils (Bld) [#/Vol] 0.07 x10*3/uL Normal 0.00-0.10 [facility] Comment on above: Performed By: #### 5 7021-8 ####BHANU GREGORY L ([id number])[facility])48694 [place] [address] Basophils/100 WBC (Bld) 0.8 % Normal 0.0-2.[address] [facility] Comment on above: Performed By: #### 5 7021-8 ####BHANU Treviño ([id number])[facility])[address] [place] [address] Eosinophils (Bld) [#/Vol] 0.36 x10*3/uL Normal 0.00-0.70 [facility] Comment on above: Performed By: #### 5 7021-8 ####BHANU Treviño ([id number])[facility])[address] [place] [address] Eosinophils/100 WBC (Bld) 4.2 % Normal 0.0-6.0 [facility] Comment on above: Performed By: #### 5 7021-8 ####BHANU Treviño ([id number])[facility])[address] [place] [address] Erythrocyte distribution width (RBC) [Ratio] 19.9 % High 11.5-14.5 [facility] Comment on above: Performed By: #### 5 7021-8 ####BHANU Treviño ([id number])[facility] ([facility])[address] [place] [address] Hematocrit (Bld) [Volume fraction] 28.0 % Low 41.0-52.0 [facility] Comment on above: Performed By: #### 5 7021-8 ####BHANU Treviño ([id number])[facility])[address] [place] [address] Hemoglobin (Bld) [Mass/Vol] 8.7 g/dL Low 13.5-17.5 [facility] Comment on above: Performed By: #### 5 7021-8 ####BHANU Treviño ([id number])[facility])[address] [place] [address] Immature granulocytes (Bld) [#/Vol] 0.05 x10*3/uL Normal 0.00-0.70 [facility] Comment on above: Performed By: #### 5 7021-8 ####BHANU Treviño ([id number])[facility] ([facility])90396 [place] [address] Immature granulocytes/100 WBC (Bld) 0.6 % Normal 0.0-0.9 [facility] Comment on above: Result Comment: Christine ture Granulocyte Count (IG) includes promyelocytes, myelocytes and metamyelocytes but does not include bands. Percent differential counts (%) should be interpreted in the context of the absolute cell counts (cells/UL). Performed By: #### 5 7021-8 ####BHANU Treviño ([id number])[facility] ([facility])09791 [place] [address] Lymphocytes (Bld) [#/Vol] 0.89 x10*3/uL Low 1.20-4.80 [facility] Comment on above: Performed By: #### 5 7021-8 ####BHANU Treviño ([id number])[facility] ([facility])56256 [place] [address] Lymphocytes/100 WBC (Bld) 10.5 % Normal 13.0-44.0 [facility] Comment on above: Performed By: #### 5 7021-8 ####BHANU Treviño ([id number])[facility] ([facility])91186 [place] [address] MCH (RBC) [Entitic mass] 24.4 pg Low 26.0-34.0 [facility] Comment on above: Performed By: #### 5 7021-8 ####BHANU Treviño ([id number])[facility] ([facility])21190 [place] [address] MCHC (RBC) [Mass/Vol] 31.1 g/dL Low 32.0-36.0 [facility] Comment on above: Performed By: #### 5 7021-8 ####BHANU Treviño ([id number])[facility])71861 [place] [address] MCV (RBC) [Entitic vol] 78 fL Low 80-[address] [facility] Comment on above: Performed By: #### 5 7021-8 ####BHANU Treviño ([id number])[facility])10561 [place] [address] Monocytes (Bld) [#/Vol] 0.89 x10*3/uL Normal 0.10-1.00 [facility] Comment on above: Performed By: #### 5 7021-8 ####BHANU Treviño ([id number])[facility])76215 [place] [address] Monocytes/100 WBC (Bld) 10.5 % Normal 2.0-10.[address] [facility] Comment on above: Performed By: #### 5 7021-8 ####BHANU Treviño ([id number])[facility])94186 [place] [address] Neutrophils (Bld) [#/Vol] 6.23 x10*3/uL Normal 1.20-7.70 [facility] Comment on above: Result Comment: Perc ent differential counts (%) should be interpreted in the context of the absolute cell counts (cells/uL). Performed By: #### 5 7021-8 ####BHANU Treviño ([id number])[facility])16645 [place] [address] Neutrophils/100 WBC (Bld) 73.4 % Normal 40.0-80.0 [facility] Comment on above: Performed By: #### 5 7021-8 ####BHANU Treviño ([id number])[facility])41988 [place] [address] Nucleated RBC/100 WBC (Bld) [Ratio] 0.0 /100 WBCs Normal 0.0-0.0 [facility] Comment on above: Performed By: #### 5 7021-8 ####BHANU Treviño (52073)[facility])71574 [place] [address] Platelets (Bld) [#/Vol] 749 x10*3/uL High 150-450 [facility] Comment on above: Performed By: #### 5 7021-8 ####BHANU Treviño ([id number])[facility])26926 [place] [address] RBC (Bld) [#/Vol] 3.57 x10*6/uL Low 4.50-5.90 [facility] Comment on above: Performed By: #### 5 7021-8 ####BHANU Treviño (43896)[facility])93756 [place] [address] WBC (Bld) [#/Vol] 8.5 x10*3/uL Normal 4.4-11.[address] [facility] Comment on above: Performed By: #### 5 7021-8 ####BHANU Treviño (55985)[facility])28032 [place] [address] Comprehensive metabolic 2000 panelon 01-23-2025 Albumin BCP dye [Mass/Vol] 2.3 g/dL Low 3.4-5.0 [facility] Comment on above: Performed By: #### 2 4323-8 ####BHANU Treviño ([id number])[facility])31414 [place] [address] ALP [Catalytic activity/Vol] 72 U/L Normal 33-120 [facility] Comment on above: Performed By: #### 2 4323-8 ####BHANU Treviño (80713)[facility])71961 [place] [address] ALT With P-5'-P [Catalytic activity/Vol] 38 U/L Normal 10-52 [facility] Comment on above: Result Comment: Sydni ents treated with Sulfasalazine may generate falsely decreased results for ALT. Performed By: #### 2 4323-8 ####BHANU Treviño ([id number])[facility])68762 [place] [address] Anion gap [Moles/Vol] 14 mmol/L Normal 10-20 [facility] Comment on above: Performed By: #### 2 4323-8 ####BHANU Treviño ([id number])[facility])22017 [place] [address] AST With P-5'-P [Catalytic activity/Vol] 56 U/L High 9-39 [facility] Comment on above: Performed By: #### 2 4323-8 ####BHANU Treviño ([id number])[facility])68025 [place] [address] Bilirubin [Mass/Vol] 0.4 mg/dL Normal 0.0-1.2 [facility] Comment on above: Performed By: #### 2 4323-8 ####BHANU Treviño ([id number])[facility])81256 [place] [address] Calcium [Mass/Vol] 8.0 mg/dL Low 8.6-10.6 [facility] Comment on above: Performed By: #### 2 4323-8 ####BHANU Treviño ([id number])[facility])47827 [place] [address] Chloride [Moles/Vol] 102 mmol/L Normal 98-107 [facility] Comment on above: Performed By: #### 2 4323-8 ####BHANU Treviño ([id number])[facility])16862 [place] [address] CO2 [Moles/Vol] 27 mmol/L Normal 21-32 [facility] Comment on above: Performed By: #### 2 4323-8 ####BHANU Treviño ([id number])[facility])94458 [place] [address] Creatinine [Mass/Vol] 1.23 mg/dL Normal 0.50-1.30 [facility] Comment on above: Performed By: #### 2 4323-8 ####BHANU Treviño ([id number])[facility])59519 [place] [address] Glomerular filtration rate/1.73 sq M.predicted 71 mL/min/1.73m*2 Normal >[address] [facility] Comment on above: Result Comment: Calc ulations of estimated GFR are performed using the 2020 CKD-EPI Study Refit equation without the race variable for the IDMS-Traceable creatinine methods.https://jasn.asnjournals.org/content/early/ /ASN.6940450098 Performed By: #### 2 4323-8 ####BHANU GREGORY L ([id number])[facility])82644 [place] [address] Glucose [Mass/Vol] 87 mg/dL Normal 74-99 [facility] Comment on above: Performed By: #### 2 4323-8 ####BHANU GREGORY L ([id number])[facility])29627 [place] [address] Potassium [Moles/Vol] 4.7 mmol/L Normal 3.5-5.3 [facility] Comment on above: Performed By: #### 2 4323-8 ####BHANU GREGORY L (07523)[facility])42998 [place] [address] Protein [Mass/Vol] 5.8 g/dL Low 6.4-8.2 [facility] Comment on above: Performed By: #### 2 4323-8 ####BHANU GREGORY L (90854)[facility])25196 [place] [address] Sodium [Moles/Vol] 138 mmol/L Normal 136-145 [facility] Comment on above: Performed By: #### 2 4323-8 ####BHANU GREGORY L (81202)[facility])15103 [place] [address] Urea nitrogen [Mass/Vol] 8 mg/dL Normal 6-23 [facility] Comment on above: Performed By: #### 2 4323-8 ####BHANU Treviño ([id number])[facility])71646 [place] [address] Magnesiumon 01-23-2025 Magnesium [Mass/Vol] 1.98 mg/dL Normal 1.60-2.40 [facility] Comment on above: Performed By: #### 1 9123-9 ####BHANU Treviño (94077)[facility])[address] [place] [address] CBC W Auto Differential pane l (Bld)on 01-22-2025 Basophils (Bld) [#/Vol] 0.07 x10*3/uL Normal 0.00-0.10 [facility] Comment on above: Performed By: #### 5 7021-8 ####BHANU Treviño ([id number])[facility])80633 [place] [address] Basophils/100 WBC (Bld) 0.8 % Normal 0.0-2.[address] [facility] Comment on above: Performed By: #### 5 7021-8 ####BHANU GREGORY L ([id number])[facility])[address] [place] [address] Eosinophils (Bld) [#/Vol] 0.11 x10*3/uL Normal 0.00-0.70 [facility] Comment on above: Performed By: #### 5 7021-8 ####BHANU GREGORY L (78806)[facility])96171 [place] [address] Eosinophils/100 WBC (Bld) 1.2 % Normal 0.0-6.0 [facility] Comment on above: Performed By: #### 5 7021-8 ####BHANU GREGORY L (97954)[facility])[address] [place] [address]279 Erythrocyte distribution width (RBC) [Ratio] 19.7 % High 11.5-14.5 [facility] Comment on above: Performed By: #### 5 7021-8 ####BHANU Treviño ([id number])[facility])[address]11 [place] [address] Hematocrit (Bld) [Volume fraction] 27.5 % Low 41.0-52.0 [facility] Comment on above: Performed By: #### 5 7021-8 ####BHANU Treviño (32987)[facility])51309 [place] [address] Hemoglobin (Bld) [Mass/Vol] 8.5 g/dL Low 13.5-17.5 [facility] Comment on above: Performed By: #### 5 7021-8 ####BHANU Treviño ([id number])[facility])[address] [place] [address]28[address] Immature granulocytes (Bld) [#/Vol] 0.03 x10*3/uL Normal 0.00-0.70 [facility] Comment on above: Performed By: #### 5 7021-8 ####BHANU Treviño ([id number])[facility])[address] [place] [address]2476 Immature granulocytes/100 WBC (Bld) 0.3 % Normal 0.0-0.9 [facility] Comment on above: Result Comment: Christine ture Granulocyte Count (IG) includes promyelocytes, myelocytes and metamyelocytes but does not include bands. Percent differential counts (%) should be interpreted in the context of the absolute cell counts (cells/UL). Performed By: #### 5 7021-8 ####BHANU Treviño (58441)[facility])[address] [place] [address]106 Lymphocytes (Bld) [#/Vol] 1.05 x10*3/uL Low 1.20-4.80 [facility] Comment on above: Performed By: #### 5 7021-8 ####BHANU Treviño ([id number])[facility])81594 [place] [address] Lymphocytes/100 WBC (Bld) 11.7 % Normal 13.0-44.0 [facility] Comment on above: Performed By: #### 5 7021-8 ####BHANU Treviño ([id number])[facility])87424 [place] [address] MCH (RBC) [Entitic mass] 23.8 pg Low 26.0-34.0 [facility] Comment on above: Performed By: #### 5 7021-8 ####BHANU Treviño ([id number])[facility])24490 [place] [address] MCHC (RBC) [Mass/Vol] 30.9 g/dL Low 32.0-36.0 [facility] Comment on above: Performed By: #### 5 7021-8 ####BHANU Treviño ([id number])[facility])18609 [place] [address] MCV (RBC) [Entitic vol] 77 fL Low 80-[address] [facility] Comment on above: Performed By: #### 5 7021-8 ####BHANU Treviño (83401)[facility])17888 [place] [address] Monocytes (Bld) [#/Vol] 1.01 x10*3/uL High 0.10-1.00 [facility] Comment on above: Performed By: #### 5 7021-8 ####BHANU Treviño ([id number])[facility])22591 [place] [address] Monocytes/100 WBC (Bld) 11.3 % Normal 2.0-10.[address] [facility] Comment on above: Performed By: #### 5 7021-8 ####BHANU Treviño ([id number])[facility])14951 [place] [address] Neutrophils (Bld) [#/Vol] 6.68 x10*3/uL Normal 1.20-7.70 [facility] Comment on above: Result Comment: Perc ent differential counts (%) should be interpreted in the context of the absolute cell counts (cells/uL). Performed By: #### 5 7021-8 ####BHANU GREGORY L (50898)[facility])11874 [place] [address] Neutrophils/100 WBC (Bld) 74.7 % Normal 40.0-80.0 [facility] Comment on above: Performed By: #### 5 7021-8 ####BHANU GREGORY L (12266)[facility])88520 [place] [address] Nucleated RBC/100 WBC (Bld) [Ratio] 0.0 /100 WBCs Normal 0.0-0.0 [facility] Comment on above: Performed By: #### 5 7021-8 ####BHANU LAUREANOTZALANNA L (68364)[facility])87270 [place] [address] Platelets (Bld) [#/Vol] 769 x10*3/uL High 150-450 [facility] Comment on above: Performed By: #### 5 7021-8 ####BHANU FLEMINGMOJOSEFA L (96826)[facility])71392 [place] [address] RBC (Bld) [#/Vol] 3.57 x10*6/uL Low 4.50-5.90 [facility] Comment on above: Performed By: #### 5 7021-8 ####BHANU FLEMINGMOTZER L (83562)[facility])91755 [place] [address] WBC (Bld) [#/Vol] 9.0 x10*3/uL Normal 4.4-11.[address] [facility] Comment on above: Performed By: #### 5 7021-8 ####BHANU GREGORY L (02553)[facility])46054 [place] [address] Basophils (Bld) [#/Vol] 0.06 x10*3/uL Normal 0.00-0.10 [facility] Comment on above: Performed By: #### 5 7021-8 ####BHANU GREGORY L (67238)[facility])64225 [place] [address] Basophils/100 WBC (Bld) 0.7 % Normal 0.0-2.[address] [facility] Comment on above: Performed By: #### 5 7021-8 ####BHANU GREGORY L (87235)[facility])[address] [place] [address]58[address] Eosinophils (Bld) [#/Vol] 0.51 x10*3/uL Normal 0.00-0.70 [facility] Comment on above: Performed By: #### 5 7021-8 ####BHANU GREGORY L (05571)[facility])03398 [place] [address] Eosinophils/100 WBC (Bld) 6.3 % Normal 0.0-6.0 [facility] Comment on above: Performed By: #### 5 7021-8 ####BHANU GREGORY L (73368)[facility])87059 [place] [address] Erythrocyte distribution width (RBC) [Ratio] 19.9 % High 11.5-14.5 [facility] Comment on above: Performed By: #### 5 7021-8 ####BHANU GREGORY L (27426)[facility])92247 [place] [address] Hematocrit (Bld) [Volume fraction] 26.6 % Low 41.0-52.0 [facility] Comment on above: Performed By: #### 5 7021-8 ####BHANU GREGORY L (85383)[facility])81511 [place] [address] Hemoglobin (Bld) [Mass/Vol] 8.4 g/dL Low 13.5-17.5 [facility] Comment on above: Performed By: #### 5 7021-8 ####BHANU Treviño (93305)[facility])[address]64 [place] [address] Immature granulocytes (Bld) [#/Vol] 0.05 x10*3/uL Normal 0.00-0.70 [facility] Comment on above: Performed By: #### 5 7021-8 ####BHANU Treviño (94983)[facility])14101 [place] [address] Immature granulocytes/100 WBC (Bld) 0.6 % Normal 0.0-0.9 [facility] Comment on above: Result Comment: Christine ture Granulocyte Count (IG) includes promyelocytes, myelocytes and metamyelocytes but does not include bands. Percent differential counts (%) should be interpreted in the context of the absolute cell counts (cells/UL). Performed By: #### 5 7021-8 ####BHANU Treviño ([id number])[facility])56598 [place] [address] Lymphocytes (Bld) [#/Vol] 1.07 x10*3/uL Low 1.20-4.80 [facility] Comment on above: Performed By: #### 5 7021-8 ####BHANU Treviño (64462)[facility])07929 [place] [address] Lymphocytes/100 WBC (Bld) 13.2 % Normal 13.0-44.0 [facility] Comment on above: Performed By: #### 5 7021-8 ####BHANU Treviño (23762)[facility])08531 [place] [address] MCH (RBC) [Entitic mass] 24.3 pg Low 26.0-34.0 [facility] Comment on above: Performed By: #### 5 7021-8 ####BHANU Treviño (63721)[facility])44172 [place] [address] MCHC (RBC) [Mass/Vol] 31.6 g/dL Low 32.0-36.0 [facility] Comment on above: Performed By: #### 5 7021-8 ####BHANU Treviño (39825)[facility])[address] [place] [address]661 MCV (RBC) [Entitic vol] 77 fL Low 80-[address] [facility] Comment on above: Performed By: #### 5 7021-8 ####BHANU Treviño ([id number])[facility])[id number] [place] [address] 15089 Monocytes (Bld) [#/Vol] 0.88 x10*3/uL Normal 0.10-1.00 [facility] Comment on above: Performed By: #### 5 7021-8 ####BHANU Treviño ([id number])[facility] ([facility])[address] [place] [address] Monocytes/100 WBC (Bld) 10.8 % Normal 2.0-10.[address] [facility] Comment on above: Performed By: #### 5 7021-8 ####BHANU Treviño ([id number])[facility] ([facility])[address] [place] [address] Neutrophils (Bld) [#/Vol] 5.55 x10*3/uL Normal 1.20-7.70 [facility] Comment on above: Result Comment: Perc ent differential counts (%) should be interpreted in the context of the absolute cell counts (cells/uL). Performed By: #### 5 7021-8 ####BHANU Treviño ([id number])[facility] ([facility])[address] [place] [address] Neutrophils/100 WBC (Bld) 68.4 % Normal 40.0-80.0 [facility] Comment on above: Performed By: #### 5 7021-8 ####BHANU Treviño ([id number])[facility] ([facility])[address] [place] [address] Nucleated RBC/100 WBC (Bld) [Ratio] 0.0 /100 WBCs Normal 0.0-0.0 [facility] Comment on above: Performed By: #### 5 7021-8 ####BHANU Treviño ([id number])[facility] ([facility])[address] [place] [address] Platelets (Bld) [#/Vol] 713 x10*3/uL High 150-450 [facility] Comment on above: Performed By: #### 5 7021-8 ####BHANU Treviño ([id number])[facility] ([facility])[address] [place] [address] RBC (Bld) [#/Vol] 3.45 x10*6/uL Low 4.50-5.90 [facility] Comment on above: Performed By: #### 5 7021-8 ####BHANU Treviño ([id number])[facility] ([facility])[id number] [place] [address] WBC (Bld) [#/Vol] 8.1 x10*3/uL Normal 4.4-11.[address] [facility] Comment on above: Performed By: #### 5 7021-8 ####BHANU Treviño ([id number])[facility] ([facility])[address] [place] [address] Comprehensive metabolic 2000 panelon 01-22-2025 Albumin BCP dye [Mass/Vol] 2.2 g/dL Low 3.4-5.0 [facility] Comment on above: Performed By: #### 2 4323-8 ####BHANU Treviño ([id number])[facility] ([facility])[address]16 [place] [address] ALP [Catalytic activity/Vol] 68 U/L Normal 33-120 [facility] Comment on above: Performed By: #### 2 4323-8 ####BHANU Treviño ([id number])[facility] ([facility])41269 [place] [address] ALT With P-5'-P [Catalytic activity/Vol] 34 U/L Normal 10-52 [facility] Comment on above: Result Comment: Sydni ents treated with Sulfasalazine may generate falsely decreased results for ALT. Performed By: #### 2 4323-8 ####BHANU Treviño ([id number])[facility] ([facility])[address]50 [place] [address] Anion gap [Moles/Vol] 14 mmol/L Normal 10-20 [facility] Comment on above: Performed By: #### 2 4323-8 ####BHANU Treviño ([id number])[facility] ([facility])[address]024 [place] [address] AST With P-5'-P [Catalytic activity/Vol] 57 U/L High 9-39 [facility] Comment on above: Performed By: #### 2 4323-8 ####BHANU Treviño ([id number])[facility] ([facility])[address]413 [place] [address] Bilirubin [Mass/Vol] 0.4 mg/dL Normal 0.0-1.2 [facility] Comment on above: Performed By: #### 2 4323-8 ####BHANU Treviño ([id number])[facility] ([facility])16286 [place] [address] Calcium [Mass/Vol] 8.1 mg/dL Low 8.6-10.6 [facility] Comment on above: Performed By: #### 2 4323-8 ####BHANU Treviño ([id number])[facility] ([facility])[address]52 [place] [address] Chloride [Moles/Vol] 103 mmol/L Normal 98-107 [facility] Comment on above: Performed By: #### 2 4323-8 ####BHANU Treviño ([id number])[facility] ([facility])[address]12 [place] [address] CO2 [Moles/Vol] 27 mmol/L Normal 21-32 [facility] Comment on above: Performed By: #### 2 4323-8 ####BHANU GREGORY L (64731)[facility] ([facility])[address]37 [place] [address] Creatinine [Mass/Vol] 1.11 mg/dL Normal 0.50-1.30 [facility] Comment on above: Performed By: #### 2 4323-8 ####BHANU GREGORY L ([id number])[facility] ([facility])[address] [place] [address] 72058 Glomerular filtration rate/1.73 sq M.predicted 80 mL/min/1.73m*2 Normal >[address] [facility] Comment on above: Result Comment: Calc ulations of estimated GFR are performed using the 2020 CKD-EPI Study Refit equation without the race variable for the IDMS-Traceable creatinine methods.https://jasn.asnjournals.org/content/early/ /ASN.4742262286 Performed By: #### 2 4323-8 ####BHANU Treviño ([id number])[facility] ([facility])10647 [place] [address] Glucose [Mass/Vol] 95 mg/dL Normal 74-99 [facility] Comment on above: Performed By: #### 2 4323-8 ####BHANU GREGORY L ([id number])[facility])82648 [place] [address] Potassium [Moles/Vol] 4.5 mmol/L Normal 3.5-5.3 [facility] Comment on above: Performed By: #### 2 4323-8 ####BHANU GREGORY L (07764)[facility] ([facility])59847 [place] [address] Protein [Mass/Vol] 5.4 g/dL Low 6.4-8.2 [facility] Comment on above: Performed By: #### 2 4323-8 ####BHANU Treviño (90111)[facility] ([facility])[address] [place] [address] Sodium [Moles/Vol] 139 mmol/L Normal 136-145 [facility] Comment on above: Performed By: #### 2 4323-8 ####BHANU Treviño (58590)[facility])[address] [place] [address] 67096 Urea nitrogen [Mass/Vol] 7 mg/dL Normal 6-23 [facility] Comment on above: Performed By: #### 2 4323-8 ####BHANU Treviño ([id number])[facility] ([facility])[address] [place] [address] Creatine kinaseon 01-22-2025 CK [Catalytic activity/Vol] 21 U/L Normal 0-325 [facility] Comment on above: Performed By: #### 2 157-6 ####BHANU Treviño (90109)[facility] ([facility])[address] [place] [address] Magnesiumon 01-22-2025 Magnesium [Mass/Vol] 1.96 mg/dL Normal 1.60-2.40 [facility] Comment on above: Performed By: #### 1 9123-9 ####BHANU Treviño (65563)[facility] ([facility])[address] [place] [address] Blood type and Indirect anti body screen panel (Bld)on 01-21-2025 ABO group Nom (Bld) A Normal [facility] Comment on above: Performed By: #### 3 4532-2 ####BHANU Treviño ([id number])[facility] [place] [address] Blood group antibody screen Ql Negative Normal [facility] Comment on above: Performed By: #### 3 4532-2 ####BHANU Treviño ([id number])[facility] ([facility])[address]58 [place] [address] D Ag Ql (Bld) Positive [facility] Comment on above: Performed By: #### 3 4532-2 ####BHANU Treviño ([id number])[facility] ([facility])54569 [facility] [address] CBC W Auto Differential pane l (Bld)on 01-21-2025 Basophils (Bld) [#/Vol] 0.06 x10*3/uL Normal 0.00-0.10 [facility] Comment on above: Performed By: #### 5 7021-8 ####BHANU Treviño ([id number])[facility] ([facility])29290 [place] [address] Basophils/100 WBC (Bld) 0.7 % Normal 0.0-2.[address] [facility] Comment on above: Performed By: #### 5 7021-8 ####BHANU Treviño (08699)[facility] ([facility])28765 [place] [address] Eosinophils (Bld) [#/Vol] 0.24 x10*3/uL Normal 0.00-0.70 [facility] Comment on above: Performed By: #### 5 7021-8 ####BHANU Treviño (40012)[facility])95697 [place] [address] Eosinophils/100 WBC (Bld) 2.7 % Normal 0.0-6.0 [facility] Comment on above: Performed By: #### 5 7021-8 ####BHANU Treviño ([id number])[facility])97896 [place] [address] Erythrocyte distribution width (RBC) [Ratio] 19.6 % High 11.5-14.5 [facility] Comment on above: Performed By: #### 5 7021-8 ####BHANU Treviño (45131)[facility] ([facility])[address] [place] [address] Hematocrit (Bld) [Volume fraction] 25.9 % Low 41.0-52.0 [facility] Comment on above: Performed By: #### 5 7021-8 ####BHANU Treviño ([id number])[facility])[address] [place] [address] 81370 Hemoglobin (Bld) [Mass/Vol] 8.3 g/dL Low 13.5-17.5 [facility] Comment on above: Performed By: #### 5 7021-8 ####BHANU Treviño (51259)[facility] ([facility])[address] [place] [address] 39960 Immature granulocytes (Bld) [#/Vol] 0.03 x10*3/uL Normal 0.00-0.70 [facility] Comment on above: Performed By: #### 5 7021-8 ####BHANU Treviño ([id number])[facility] ([facility])[address] [place] [address] 38867 Immature granulocytes/100 WBC (Bld) 0.3 % Normal 0.0-0.9 [facility] Comment on above: Result Comment: Christine ture Granulocyte Count (IG) includes promyelocytes, myelocytes and metamyelocytes but does not include bands. Percent differential counts (%) should be interpreted in the context of the absolute cell counts (cells/UL). Performed By: #### 5 7021-8 ####BHANU Treviño ([id number])[facility] ([facility])[address] [place] [address] 03239 Lymphocytes (Bld) [#/Vol] 1.18 x10*3/uL Low 1.20-4.80 [facility] Comment on above: Performed By: #### 5 7021-8 ####BHANU Treviño (84968)[facility] ([facility])[address] [place] [address], [place] [address] Lymphocytes/100 WBC (Bld) 13.5 % Normal 13.0-44.0 [facility] Comment on above: Performed By: #### 5 7021-8 ####BHANU Treviño ([id number])[facility] ([facility])98006 [place] [address] MCH (RBC) [Entitic mass] 24.7 pg Low 26.0-34.0 [facility] Comment on above: Performed By: #### 5 7021-8 ####BHANU Treviño (88120)[facility])65582 [place] [address] MCHC (RBC) [Mass/Vol] 32.0 g/dL Normal 32.0-36.0 [facility] Comment on above: Performed By: #### 5 7021-8 ####BHANU Treviño ([id number])[facility])[address] [place] [address] 23552 MCV (RBC) [Entitic vol] 77 fL Low 80-[address] [facility] Comment on above: Performed By: #### 5 7021-8 ####BHANU Treviño (73366)[facility] ([facility])[address] [place] [address] 05933 Monocytes (Bld) [#/Vol] 1.01 x10*3/uL High 0.10-1.00 [facility] Comment on above: Performed By: #### 5 7021-8 ####BHANU Treviño (39391)[facility])08880 [place] [address] Monocytes/100 WBC (Bld) 11.5 % Normal 2.0-10.[address] [facility] Comment on above: Performed By: #### 5 7021-8 ####BHANU Treviño ([id number])[facility])52765 [place] [address] Neutrophils (Bld) [#/Vol] 6.25 x10*3/uL Normal 1.20-7.70 [facility] Comment on above: Result Comment: Perc ent differential counts (%) should be interpreted in the context of the absolute cell counts (cells/uL). Performed By: #### 5 7021-8 ####BHANU Treviño ([id number])[facility] ([facility])[address]01 [place] [address] Neutrophils/100 WBC (Bld) 71.3 % Normal 40.0-80.0 [facility] Comment on above: Performed By: #### 5 7021-8 ####BHANU Treviño ([id number])[facility])86261 [place] [address] Nucleated RBC/100 WBC (Bld) [Ratio] 0.0 /100 WBCs Normal 0.0-0.0 [facility] Comment on above: Performed By: #### 5 7021-8 ####BHANU Treviño (94179)[facility])64503 [place] [address] Platelets (Bld) [#/Vol] 730 x10*3/uL High 150-450 [facility] Comment on above: Performed By: #### 5 7021-8 ####BHANU Treviño ([id number])[facility] ([facility])80195 [place] [address] RBC (Bld) [#/Vol] 3.36 x10*6/uL Low 4.50-5.90 [facility] Comment on above: Performed By: #### 5 7021-8 ####BHANU Treviño (89335)[facility] ([facility])50477 [place] [address] WBC (Bld) [#/Vol] 8.8 x10*3/uL Normal 4.4-11.[address] [facility] Comment on above: Performed By: #### 5 7021-8 ####BHANU Treviño (53676)[facility])00749 [place] [address] Basophils (Bld) [#/Vol] 0.07 x10*3/uL Normal 0.00-0.10 [facility] Comment on above: Performed By: #### 5 7021-8 ####BHANU Treviño (86758)[facility] ([facility])83095 [place] [address] Basophils/100 WBC (Bld) 0.8 % Normal 0.0-2.[address] [facility] Comment on above: Performed By: #### 5 7021-8 ####BHANU Treviño (23643)[facility])[address] [place] [address] Eosinophils (Bld) [#/Vol] 0.16 x10*3/uL Normal 0.00-0.70 [facility] Comment on above: Performed By: #### 5 7021-8 ####BHANU Treviño ([id number])[facility])[address] [place] [address] 79715 Eosinophils/100 WBC (Bld) 1.7 % Normal 0.0-6.0 [facility] Comment on above: Performed By: #### 5 7021-8 ####BHANU Treviño ([id number])[facility])[address] [place] [address] 64631 Erythrocyte distribution width (RBC) [Ratio] 19.5 % High 11.5-14.5 [facility] Comment on above: Performed By: #### 5 7021-8 ####BHANU Treviño (87903)[facility])[address]4488 [place] [address] Hematocrit (Bld) [Volume fraction] 25.5 % Low 41.0-52.0 [facility] Comment on above: Performed By: #### 5 7021-8 ####BHANU Treviño ([id number])[facility])82552 [place] [address] Hemoglobin (Bld) [Mass/Vol] 8.3 g/dL Low 13.5-17.5 [facility] Comment on above: Performed By: #### 5 7021-8 ####BAHNU Treviño ([id number])[facility])86684 [place] [address] Immature granulocytes (Bld) [#/Vol] 0.05 x10*3/uL Normal 0.00-0.70 [facility] Comment on above: Performed By: #### 5 7021-8 ####BHANU Treviño (96714)[facility])11476 [place] [address] Immature granulocytes/100 WBC (Bld) 0.5 % Normal 0.0-0.9 [facility] Comment on above: Result Comment: Christine ture Granulocyte Count (IG) includes promyelocytes, myelocytes and metamyelocytes but does not include bands. Percent differential counts (%) should be interpreted in the context of the absolute cell counts (cells/UL). Performed By: #### 5 7021-8 ####BHANU Trevñio ([id number])[facility])[address] [place] [address] Lymphocytes (Bld) [#/Vol] 0.99 x10*3/uL Low 1.20-4.80 [facility] Comment on above: Performed By: #### 5 7021-8 ####BHANU Treviño ([id number])[facility])30286 [place] [address] Lymphocytes/100 WBC (Bld) 10.8 % Normal 13.0-44.0 [facility] Comment on above: Performed By: #### 5 7021-8 ####BHANU Treviño (80923)[facility])55872 [place] [address] MCH (RBC) [Entitic mass] 25.0 pg Low 26.0-34.0 [facility] Comment on above: Performed By: #### 5 7021-8 ####BHANU Treviño ([id number])[facility])92140 [place] [address] MCHC (RBC) [Mass/Vol] 32.5 g/dL Normal 32.0-36.0 [facility] Comment on above: Performed By: #### 5 7021-8 ####BHANU Treviño (04734)[facility])37578 [place] [address] MCV (RBC) [Entitic vol] 77 fL Low 80-[address] [facility] Comment on above: Performed By: #### 5 7021-8 ####BHANU Treviño (46632)[facility])79116 [place] [address] Monocytes (Bld) [#/Vol] 1.02 x10*3/uL High 0.10-1.00 [facility] Comment on above: Performed By: #### 5 7021-8 ####BHANU Treviño (36225)[facility])76506 [place] [address] Monocytes/100 WBC (Bld) 11.1 % Normal 2.0-10.[address] [facility] Comment on above: Performed By: #### 5 7021-8 ####BHANU Treviño ([id number])[facility])70807 [place] [address] Neutrophils (Bld) [#/Vol] 6.90 x10*3/uL Normal 1.20-7.70 [facility] Comment on above: Result Comment: Perc ent differential counts (%) should be interpreted in the context of the absolute cell counts (cells/uL). Performed By: #### 5 7021-8 ####BHANU Treviño (87877)[facility])04583 [place] [address] Neutrophils/100 WBC (Bld) 75.1 % Normal 40.0-80.0 [facility] Comment on above: Performed By: #### 5 7021-8 ####BHANU Treviño (61008)[facility])61583 [place] [address] Nucleated RBC/100 WBC (Bld) [Ratio] 0.0 /100 WBCs Normal 0.0-0.0 [facility] Comment on above: Performed By: #### 5 7021-8 ####BHANU Treviño (68307)[facility])00899 [place] [address] Platelets (Bld) [#/Vol] 690 x10*3/uL High 150-450 [facility] Comment on above: Performed By: #### 5 7021-8 ####BHANU Treviño (39784)[facility])[address] [place] [address] 49002 RBC (Bld) [#/Vol] 3.32 x10*6/uL Low 4.50-5.90 [facility] Comment on above: Performed By: #### 5 7021-8 ####BHANU Treviño ([id number])[facility])[address] [place] [address] 21960 WBC (Bld) [#/Vol] 9.2 x10*3/uL Normal 4.4-11.[address] [facility] Comment on above: Performed By: #### 5 7021-8 ####BHANU Treviño (77509)[facility])[address] [place] [address] 71663 Comprehensive metabolic 2000 panelon 01-21-2025 Albumin BCP dye [Mass/Vol] 2.2 g/dL Low 3.4-5.0 [facility] Comment on above: Performed By: #### 2 4323-8 ####BHANU Treviño ([id number])[facility])54359 [place] [address] ALP [Catalytic activity/Vol] 62 U/L Normal 33-120 [facility] Comment on above: Performed By: #### 2 4323-8 ####BHANU Treviño (55163)[facility])28718 [place] [address] ALT With P-5'-P [Catalytic activity/Vol] 24 U/L Normal 10-52 [facility] Comment on above: Result Comment: Sydni ents treated with Sulfasalazine may generate falsely decreased results for ALT. Performed By: #### 2 4323-8 ####BHANU GREGORY L (81202)[facility])90916 [place] [address] Anion gap [Moles/Vol] 12 mmol/L Normal 10-20 [facility] Comment on above: Performed By: #### 2 4323-8 ####BHANU Treviño (89756)[facility])94574 [place] [address] AST With P-5'-P [Catalytic activity/Vol] 40 U/L High 9-39 [facility] Comment on above: Performed By: #### 2 4323-8 ####BHANU Treviño (51981)[facility])53370 [place] [address] Bilirubin [Mass/Vol] 0.4 mg/dL Normal 0.0-1.2 [facility] Comment on above: Performed By: #### 2 4323-8 ####BHANU Treviño (12586)[facility])08573 [place] [address] Calcium [Mass/Vol] 8.0 mg/dL Low 8.6-10.6 [facility] Comment on above: Performed By: #### 2 4323-8 ####BHANU GREGORY L (66229)[facility])29346 [place] [address] Chloride [Moles/Vol] 104 mmol/L Normal 98-107 [facility] Comment on above: Performed By: #### 2 4323-8 ####BHANU Treviño ([id number])[facility])[address]203 [place] [address] CO2 [Moles/Vol] 26 mmol/L Normal 21-32 [facility] Comment on above: Performed By: #### 2 4323-8 ####BHANU Treviño (90352)[facility])[address]480 [facility] [address] Creatinine [Mass/Vol] 1.09 mg/dL Normal 0.50-1.30 [facility] Comment on above: Performed By: #### 2 4323-8 ####BHANU Treviño (88485)[facility])40227 [place] [address] Glomerular filtration rate/1.73 sq M.predicted 82 mL/min/1.73m*2 Normal >[address] [facility] Comment on above: Result Comment: Calc ulations of estimated GFR are performed using the 2020 CKD-EPI Study Refit equation without the race variable for the IDMS-Traceable creatinine methods.https://jasn.asnjournals.org/content/ /ASN.9217499977 Performed By: #### 2 4323-8 ####BHANU Treviño (66863)[facility])28154 [place] [address] Glucose [Mass/Vol] 103 mg/dL High 74-99 [facility] Comment on above: Performed By: #### 2 4323-8 ####BHANU Treviño ([id number])[facility])58040 [place] [address] Potassium [Moles/Vol] 4.0 mmol/L Normal 3.5-5.3 [facility] Comment on above: Performed By: #### 2 4323-8 ####HBANU Treviño (14310)[facility])62019 [place] [address] Protein [Mass/Vol] 6.1 g/dL Low 6.4-8.2 [facility] Comment on above: Performed By: #### 2 4323-8 ####BHANU Treviño (09460)[facility])62943 [place] [address] Sodium [Moles/Vol] 138 mmol/L Normal 136-145 [facility] Comment on above: Performed By: #### 2 4323-8 ####BAHNU Treviño ([id number])[facility])[address] [place] [address] 19181 Urea nitrogen [Mass/Vol] 7 mg/dL Normal 6-23 [facility] Comment on above: Performed By: #### 2 4323-8 ####BHANU Treviño (76211)[facility])[address] [place] [address] 18022 Magnesiumon 01-21-2025 Magnesium [Mass/Vol] 1.92 mg/dL Normal 1.60-2.40 [facility] Comment on above: Performed By: #### 1 9123-9 ####BHANU Treviño (65178)[facility])[address] [place] [address] 92553 CBC W Auto Differential pane l (Bld)on 01-20-2025 Basophils (Bld) [#/Vol] 0.06 x10*3/uL Normal 0.00-0.10 [facility] Comment on above: Performed By: #### 5 7021-8 ####BHANU Treviño ([id number])[facility])55001 [place] [address] Basophils/100 WBC (Bld) 0.6 % Normal 0.0-2.[address] [facility] Comment on above: Performed By: #### 5 7021-8 ####BHANU Treviño ([id number])[facility])[address] [place] [address] 90661 Eosinophils (Bld) [#/Vol] 0.44 x10*3/uL Normal 0.00-0.70 [facility] Comment on above: Performed By: #### 5 7021-8 ####BHANU Treviño (76973)[facility])[address] [place] [address] 38503 Eosinophils/100 WBC (Bld) 4.2 % Normal 0.0-6.0 [facility] Comment on above: Performed By: #### 5 7021-8 ####BHANU Treviño ([id number])[facility])[id number] [place] [address] 56610 Erythrocyte distribution width (RBC) [Ratio] 19.6 % High 11.5-14.5 [facility] Comment on above: Performed By: #### 5 7021-8 ####BHANU Treivño ([id number])[facility] ([facility])[address] [place] [id number] Hematocrit (Bld) [Volume fraction] 25.2 % Low 41.0-52.0 [facility] Comment on above: Performed By: #### 5 7021-8 ####BHANU Treviño ([id number])[facility] ([facility])[address] [place] [address] 31464 Hemoglobin (Bld) [Mass/Vol] 8.1 g/dL Low 13.5-17.5 [facility] Comment on above: Performed By: #### 5 7021-8 ####BHANU Treviño ([id number])[facility] ([facility])[id number] [place] [id number] Immature granulocytes (Bld) [#/Vol] 0.05 x10*3/uL Normal 0.00-0.70 [facility] Comment on above: Performed By: #### 5 7021-8 ####BHANU Treviño ([id number])[facility] ([facility])[id number] [place] [address] 41705 Immature granulocytes/100 WBC (Bld) 0.5 % Normal 0.0-0.9 [facility] Comment on above: Result Comment: Christine ture Granulocyte Count (IG) includes promyelocytes, myelocytes and metamyelocytes but does not include bands. Percent differential counts (%) should be interpreted in the context of the absolute cell counts (cells/UL). Performed By: #### 5 7021-8 ####BHANU Treviño ([id number])[facility] [facility] ([facility])[address] [place] [address] Lymphocytes (Bld) [#/Vol] 1.24 x10*3/uL Normal 1.20-4.80 [facility] Comment on above: Performed By: #### 5 7021-8 ####BHANU Treviño ([id number])[facility] ([facility])[address]301 [place] [address] Lymphocytes/100 WBC (Bld) 11.8 % Normal 13.0-44.0 [facility] Comment on above: Performed By: #### 5 7021-8 ####BHANU Treviño ([id number])[facility] ([facility])[address]355 [place] [address] MCH (RBC) [Entitic mass] 24.7 pg Low 26.0-34.0 [facility] Comment on above: Performed By: #### 5 7021-8 ####BHANU Treviño ([id number])[facility] ([facility])[address]271 [place] [address] MCHC (RBC) [Mass/Vol] 32.1 g/dL Normal 32.0-36.0 [facility] Comment on above: Performed By: #### 5 7021-8 ####BHANU Treviño ([id number])[facility] ([facility])[address]74 [place] [address] MCV (RBC) [Entitic vol] 77 fL Low 80-[address] [facility] Comment on above: Performed By: #### 5 7021-8 ####BHANU Treviño ([id number])[facility] ([facility])[address]19 [place] [address] Monocytes (Bld) [#/Vol] 1.16 x10*3/uL High 0.10-1.00 [facility] Comment on above: Performed By: #### 5 7021-8 ####BHANU Treviño ([id number])[facility] ([facility])[address]3830 [place] [address] Monocytes/100 WBC (Bld) 11.0 % Normal 2.0-10.[address] [facility] Comment on above: Performed By: #### 5 7021-8 ####BHANU Treviño ([id number])[facility] ([facility])[address]34 [place] [address] Neutrophils (Bld) [#/Vol] 7.58 x10*3/uL Normal 1.20-7.70 [facility] Comment on above: Result Comment: Perc ent differential counts (%) should be interpreted in the context of the absolute cell counts (cells/uL). Performed By: #### 5 7021-8 ####BHANU Treviño ([id number])[facility] ([facility])[address]62 [place] [address] Neutrophils/100 WBC (Bld) 71.9 % Normal 40.0-80.0 [facility] Comment on above: Performed By: #### 5 7021-8 ####BHANU Treviño ([id number])[facility] ([facility])25748 [place] [address] Nucleated RBC/100 WBC (Bld) [Ratio] 0.0 /100 WBCs Normal 0.0-0.0 [facility] Comment on above: Performed By: #### 5 7021-8 ####BHANU FLEMINGMOTZER L ([id number])[facility] ([facility])23788 [place] [address] Platelets (Bld) [#/Vol] 731 x10*3/uL High 150-450 [facility] Comment on above: Performed By: #### 5 7021-8 ####BHANU FLEMINGMOJOSEFA L ([id number])[facility] ([facility])[address]14 [place] [address] RBC (Bld) [#/Vol] 3.28 x10*6/uL Low 4.50-5.90 [facility] Comment on above: Performed By: #### 5 7021-8 ####BHANU Treviño ([id number])[facility] ([facility])[address]41 [place] [address] WBC (Bld) [#/Vol] 10.5 x10*3/uL Normal 4.4-11.3 [facility] Comment on above: Performed By: #### 5 7021-8 ####BHANU GREGORY L ([id number])[facility] ([facility])[address]339 [place] [address] Basophils (Bld) [#/Vol] 0.06 x10*3/uL Normal 0.00-0.10 [facility] Comment on above: Performed By: #### 5 7021-8 ####BHANU GREGORY L ([id number])[facility] ([facility])[address]4488 [place] [address] Basophils/100 WBC (Bld) 0.6 % Normal 0.0-2.[address] [facility] Comment on above: Performed By: #### 5 7021-8 ####BHANU FLEMINGMOJOSEFA L ([id number])[facility] ([facility])35055 [place] [address] Eosinophils (Bld) [#/Vol] 0.50 x10*3/uL Normal 0.00-0.70 [facility] Comment on above: Performed By: #### 5 7021-8 ####BHANU FLEMINGMOJOSEFA L ([id number])[facility] ([facility])[address]69 [place] [address] Eosinophils/100 WBC (Bld) 5.2 % Normal 0.0-6.0 [facility] Comment on above: Performed By: #### 5 7021-8 ####BHANU FLEMINGMOJOSEFA L ([id number])[facility] ([facility])07528 [place] [address] Erythrocyte distribution width (RBC) [Ratio] 19.6 % High 11.5-14.5 [facility] Comment on above: Performed By: #### 5 7021-8 ####BHANU Treviño ([id number])[facility] ([facility])12449 [place] [address] Hematocrit (Bld) [Volume fraction] 25.2 % Low 41.0-52.0 [facility] Comment on above: Performed By: #### 5 7021-8 ####BHANU Treviño ([id number])[facility] ([facility])24605 [place] [address] Hemoglobin (Bld) [Mass/Vol] 7.9 g/dL Low 13.5-17.5 [facility] Comment on above: Performed By: #### 5 7021-8 ####BHANU Treviño ([id number])[facility] ([facility])[address] [place] [address] Immature granulocytes (Bld) [#/Vol] 0.08 x10*3/uL Normal 0.00-0.70 [facility] Comment on above: Performed By: #### 5 7021-8 ####BHANU Treviño ([id number])[facility] ([facility])[address] [place] [address] Immature granulocytes/100 WBC (Bld) 0.8 % Normal 0.0-0.9 [facility] Comment on above: Result Comment: Christine ture Granulocyte Count (IG) includes promyelocytes, myelocytes and metamyelocytes but does not include bands. Percent differential counts (%) should be interpreted in the context of the absolute cell counts (cells/UL). Performed By: #### 5 7021-8 ####BHANU Treviño ([id number])[facility] ([facility])[address] [place] [address] Lymphocytes (Bld) [#/Vol] 1.26 x10*3/uL Normal 1.20-4.80 [facility] Comment on above: Performed By: #### 5 7021-8 ####BHANU Treviño ([id number])[facility] ([facility])[address]14 [place] [address] Lymphocytes/100 WBC (Bld) 13.1 % Normal 13.0-44.0 [facility] Comment on above: Performed By: #### 5 7021-8 ####BHANU Treviño ([id number])[facility] ([facility])56336 [place] [address] MCH (RBC) [Entitic mass] 24.7 pg Low 26.0-34.0 [facility] Comment on above: Performed By: #### 5 7021-8 ####BHANU Treviño ([id number])[facility] ([facility])84745 [place] [address] MCHC (RBC) [Mass/Vol] 31.3 g/dL Low 32.0-36.0 [facility] Comment on above: Performed By: #### 5 7021-8 ####BHANU Treviño ([id number])[facility] ([facility])86201 [place] [address] MCV (RBC) [Entitic vol] 79 fL Low 80-[address] [facility] Comment on above: Performed By: #### 5 7021-8 ####BHANU Treviño ([id number])[facility] ([facility])13529 [place] [address] Monocytes (Bld) [#/Vol] 1.08 x10*3/uL High 0.10-1.00 [facility] Comment on above: Performed By: #### 5 7021-8 ####BHANU Treviño ([id number])[facility] ([facility])[address]50 [place] [address] Monocytes/100 WBC (Bld) 11.3 % Normal 2.0-10.[address] [facility] Comment on above: Performed By: #### 5 7021-8 ####BHANU Treviño ([id number])[facility] ([facility])[address]1555 [place] [address] Neutrophils (Bld) [#/Vol] 6.62 x10*3/uL Normal 1.20-7.70 [facility] Comment on above: Result Comment: Perc ent differential counts (%) should be interpreted in the context of the absolute cell counts (cells/uL). Performed By: #### 5 7021-8 ####BHANU GREGORY L ([id number])[facility] ([facility])21605 [place] [address] Neutrophils/100 WBC (Bld) 69.0 % Normal 40.0-80.0 [facility] Comment on above: Performed By: #### 5 7021-8 ####BHANU GREGORY L ([id number])[facility] ([facility])[address]12 [place] [address] Nucleated RBC/100 WBC (Bld) [Ratio] 0.0 /100 WBCs Normal 0.0-0.0 [facility] Comment on above: Performed By: #### 5 7021-8 ####BHANU FLEMINGMOTZER L ([id number])[facility] ([facility])57008 [place] [address] Platelets (Bld) [#/Vol] 689 x10*3/uL High 150-450 [facility] Comment on above: Performed By: #### 5 7021-8 ####BHANU FLEMINGMOTZALANNA L ([id number])[facility] ([facility])[address]146 [place] [address] RBC (Bld) [#/Vol] 3.20 x10*6/uL Low 4.50-5.90 [facility] Comment on above: Performed By: #### 5 7021-8 ####BHANU FLEMINGMOTZER L ([id number])[facility] ([facility])03259 [place] [address] WBC (Bld) [#/Vol] 9.6 x10*3/uL Normal 4.4-11.[address] [facility] Comment on above: Performed By: #### 5 7021-8 ####BHANU Treviño ([id number])[facility] ([facility])[address]22 [place] [address] Comprehensive metabolic 2000 panelon 01-20-2025 Albumin BCP dye [Mass/Vol] 2.2 g/dL Low 3.4-5.0 [facility] Comment on above: Performed By: #### 2 4323-8 ####BHANU Treviño ([id number])[facility] ([facility])88137 [place] [address] ALP [Catalytic activity/Vol] 62 U/L Normal 33-120 [facility] Comment on above: Performed By: #### 2 4323-8 ####BHANU Treviño ([id number])[facility] ([facility])[address]15 [place] [address] ALT With P-5'-P [Catalytic activity/Vol] 18 U/L Normal 10-52 [facility] Comment on above: Result Comment: Sydni ents treated with Sulfasalazine may generate falsely decreased results for ALT. Performed By: #### 2 4323-8 ####BHANU Treviño ([id number])[facility] ([facility])[address]18 [place] [address] Anion gap [Moles/Vol] 11 mmol/L Normal 10-20 [facility] Comment on above: Performed By: #### 2 4323-8 ####BHANU Treviño ([id number])[facility] ([facility])[address]201 [place] [address] AST With P-5'-P [Catalytic activity/Vol] 30 U/L Normal 9-39 [facility] Comment on above: Performed By: #### 2 4323-8 ####BHANU Treviño ([id number])[facility] ([facility])19578 [place] [address] Bilirubin [Mass/Vol] 0.3 mg/dL Normal 0.0-1.2 [facility] Comment on above: Performed By: #### 2 4323-8 ####BHANU GREGORY L ([id number])[facility] ([facility])31303 [place] [address] Calcium [Mass/Vol] 7.9 mg/dL Low 8.6-10.6 [facility] Comment on above: Performed By: #### 2 4323-8 ####BHANU MATOSER L ([id number])[facility] ([facility])63205 [place] [address] Chloride [Moles/Vol] 106 mmol/L Normal 98-107 [facility] Comment on above: Performed By: #### 2 4323-8 ####BHANU GREGORY L ([id number])[facility] ([facility])06461 [place] [address] CO2 [Moles/Vol] 26 mmol/L Normal 21-32 [facility] Comment on above: Performed By: #### 2 4323-8 ####BHANU GREGORY L ([id number])[facility] ([facility])39582 [place] [address] Creatinine [Mass/Vol] 1.08 mg/dL Normal 0.50-1.30 [facility] Comment on above: Performed By: #### 2 4323-8 ####BHANU GREGORY L ([id number])[facility] ([facility])39142 [place] [address] Glomerular filtration rate/1.73 sq M.predicted 83 mL/min/1.73m*2 Normal >[address] [facility] Comment on above: Result Comment: Calc ulations of estimated GFR are performed using the 2020 CKD-EPI Study Refit equation without the race variable for the IDMS-Traceable creatinine methods.https://jasn.asnjournals.org/content/early /ASN.4762394131 Performed By: #### 2 4323-8 ####BHANU LAUREANOTZER L ([id number])[facility] ([facility])[address]23 [place] [address] Glucose [Mass/Vol] 100 mg/dL High 74-99 [facility] Comment on above: Performed By: #### 2 4323-8 ####BHANU Treviño ([id number])[facility] ([facility])[address]42 [place] [address] Potassium [Moles/Vol] 3.8 mmol/L Normal 3.5-5.3 [facility] Comment on above: Performed By: #### 2 4323-8 ####BHANU Treviño ([id number])[facility] ([facility])13733 [place] [address] Protein [Mass/Vol] 5.5 g/dL Low 6.4-8.2 [facility] Comment on above: Performed By: #### 2 4323-8 ####BHANU Treviño ([id number])[facility] ([facility])[address]2006 [place] [address] Sodium [Moles/Vol] 139 mmol/L Normal 136-145 [facility] Comment on above: Performed By: #### 2 4323-8 ####BHANU Treviño ([id number])[facility] ([facility])[address]301 [place] [address] Urea nitrogen [Mass/Vol] 7 mg/dL Normal 6-23 [facility] Comment on above: Performed By: #### 2 4323-8 ####BHANU Treviño ([id number])[facility] ([facility])[address] [place] [address] Magnesiumon 01-20-2025 Magnesium [Mass/Vol] 1.94 mg/dL Normal 1.60-2.40 [facility] Comment on above: Performed By: #### 1 9123-9 ####BHANU Treviño ([id number])[facility] ([facility])[address]90 [place] [address] RBC shape Nom (Bld)on 2024 Hypochromia Ql (Bld) Mild Normal [facility] Comment on above: Performed By: #### 1 8225-3 ####BHANU Treviño ([id number])[facility] ([facility])[address] [place], [place] [address] RBC morphology finding Nom (Bld) See Below Normal [facility] Comment on above: Performed By: #### 1 8225-3 ####BHANU Treviño ([id number])[facility] ([facility])[address] [place] [address] CBC W Auto Differential pane l (Bld)on 01-19-2025 Basophils (Bld) [#/Vol] 0.05 x10*3/uL Normal 0.00-0.10 [facility] Comment on above: Performed By: #### 5 7021-8 ####BHANU Treviño ([id number])[facility] ([facility])[address] [place] [address] Basophils/100 WBC (Bld) 0.5 % Normal 0.0-2.[address] [facility] Comment on above: Performed By: #### 5 7021-8 ####BHANU Treviño ([id number])[facility] ([facility])[address] [place], [place] [address] No Panel Informationon 01-13 Actual Fractions Delivered 5 [facility] Actual Session Delivered Dose 400 cGray [facility] Actual Total Dose 2000 cGray [facility] Course Number 1 [facility] Elapsed Days 6 [facility] Last Date 01/13/2025 [facility] Prescribed Fractional Dose 400 cGray [facility] Prescribed Number of Fractions 5 [facility] Prescribed Technique 3D [facility] Prescribed Total Dose 2000 cGray [facility] Prescription Pattern Comment 1 cm bolus [facility] Start Date 01/07/2025 [facility] Treatment Site L [facility] Treatment [place] yon 01-10-2025 Actual Fractions Delivered 4 [facility] Actual Session Delivered Dose 400 cGray [facility] Actual Total Dose 1600 cGray [facility] Course Number 1 [facility] Elapsed Days 3 [facility] Last Date 01/10/2025 [facility] Prescribed Fractional Dose 400 cGray [facility] Prescribed Number of Fractions 5 [facility] Prescribed Technique 3D [facility] Prescribed Total Dose 2000 cGray [facility] Prescription Pattern Comment 1 cm bolus [facility] Start Date 01/07/2025 [facility] Treatment Site L [facility] Rad Onc Msq Treatment [place] 01-09-2025 Actual Fractions Delivered 3 [facility] Actual Session Delivered Dose 400 cGray [facility] Actual Total Dose 1200 cGray [facility] Course Number 1 [facility] Elapsed Days 2 [facility] Last Date 01/09/2025 [facility] Prescribed Fractional Dose 400 cGray [facility] Prescribed Number of Fractions 5 [facility] Prescribed Technique 3D [facility] Prescribed Total Dose 2000 cGray [facility] Prescription Pattern Comment 1 cm bolus [facility] Start Date 01/07/2025 [facility] Treatment Site L [facility] Rad Onc Msq Treatment [place] 01-08-2025 Actual Fractions Delivered 2 [facility] Actual Session Delivered Dose 400 cGray [facility] Actual Total Dose 800 cGray [facility] Course Number 1 [facility] Elapsed Days 1 [facility] Last Date 01/08/2025 [facility] Prescribed Fractional Dose 400 cGray [facility] Prescribed Number of Fractions 5 [facility] Prescribed Technique 3D [facility] Prescribed Total Dose 2000 cGray [facility] Prescription Pattern Comment 1 cm bolus [facility] Start Date 01/07/2025 [facility] Treatment Site L [facility] No Panel Informationon 01-02 These images [...] maintained or improved Outcome: Adequate for Discharge [facility] 30 Problem: Knowledge Deficit Goal: Patient/family/careg [...] by Diana Wise RN Outcome: Progressing Normal [facility] BASIC METABOLIC PANELon 04-0 Anion gap [Moles/Vol] 7 mmol/L Normal 3-13 [facility] Comment on above: Performed By: #### L AB15 ####Librarian: JAZLYN JIMENEZ ([id number])[facility] ([facility])[address] [place] [address] Calcium [Mass/Vol] 10.3 mg/dL High 8.4-10.2 [facility] Comment on above: Performed By: #### L AB15 ####Librarian: JAZLYN JIMENEZ ([id number])[facility] [place] [address] Chloride [Moles/Vol] 108 mmol/L High 98-107 [facility] Comment on above: Performed By: #### L AB15 ####Librarian: JAZLYN JIMENEZ ([id number])[facility])[address] [place] [address] CO2 [Moles/Vol] 24 mmol/L Normal 22-29 [facility] Comment on above: Performed By: #### L AB15 ####Librarian: JAZLYN JIMENEZ ([id number])[facility])[address] [place] [address] Creatinine [Mass/Vol] 1.04 mg/dL Normal 0.72-1.25 [facility] Comment on above: Performed By: #### L AB15 ####Librarian: JAZLYN JIMENEZ ([id number])[facility])[address] [place] [address] GLOMERULAR FILTRATION RATE ML/MIN/1.73 SQ M.PREDICTED 86.9 mL/min/1.73m*2 Normal >60.0 [facility] Comment on above: Result Comment: Calc ulation based on the Chronic Kidney Disease Epidemiology Collaboration (CKD-EPI) equation refit without adjustment for race Performed By: #### L AB15 ####Librarian: JAZLYN JIMENEZ ([id number])[facility])[address] [place] [address] Glucose [Mass/Vol] 97 mg/dL Normal 74-100 [facility] Comment on above: Performed By: #### L AB15 ####Librarian: JAZLYN JIMENEZ ([id number])[facility])[address] [place] [address] Potassium [Moles/Vol] 3.7 mmol/L Normal 3.5-5.1 [facility] Comment on above: Result Comment: [facility] potassium values may be up to 0.5 mmol/L lower than serum values. Performed By: #### L AB15 ####Librarian: JAZLYN JIMENEZ ([id number])[facility])[address] [place] [address] Sodium [Moles/Vol] 139 mmol/L Normal 136-145 [facility] Comment on above: Performed By: #### L AB15 ####Librarian: JAZLYN JIMENEZ ([id number])[address] Urea nitrogen [Mass/Vol] 7 mg/dL Low 9-23 [facility] Comment on above: Performed By: #### L AB15 ####Librarian: JAZLYN JIMENEZ ([id number])[facility] ([facility])[address] [place] [address] Basic metabolic 1998 panelOr dered By: Eboni Camacho on 12-24-2024 Anion gap [Moles/Vol] 7 mmol/L 3 - 13 mmol/L [facility] Calcium [Mass/Vol] 10.3 mg/dL High 8.4 - 10. 2 mg/dL [facility] Chloride [Moles/Vol] 108 mmol/L High 98 - 10 7 mmol/L [facility] CO2 [Moles/Vol] 24 mmol/L 22 - 29 mmol/L [facility] Creatinine [Mass/Vol] 1.04 mg/dL 0.72 - 1.25 mg/dL [facility] GFR/1.73 sq M.predicted (S/P/Bld) [Vol rate/Area] 86.9 mL/min - PINF [facility] Comment on above: Calculation based on the Chronic Kidney Disease Epidemiology Collaboration (CKD-EPI) equation refit without adjustment for race Glucose [Mass/Vol] 97 mg/dL 74 - 100 mg/dL [facility] Interpretation and review of laboratory results Abnormal [facility] Potassium [Moles/Vol] 3.7 mmol/L 3.5 - 5.1 mmol/L [facility] Comment on above: Plasma potassium jeri ues may be up to 0.5 mmol/L lower than serum values. Sodium [Moles/Vol] 139 mmol/L 136 - 145 mmol/L [facility] Urea nitrogen [Mass/Vol] 7 mg/dL Low 9 - 23 mg/d L [facility] CBC W Auto Differential pane l (Bld)on 12-24-2024 Basophils (Bld) [#/Vol] 0.1 10*3/uL 0.0 - 0.2 10*3/uL [facility] Basophils/100 WBC (Bld) 0.5 % 0.0 - 2.0 % [facility] Eosinophils (Bld) [#/Vol] 0.8 10*3/uL High 0.0 - 0.5 10*3/uL [facility] Eosinophils/100 WBC (Bld) 5.7 % 0.0 - 6.0 % [facility] Erythrocyte distribution width (RBC) [Ratio] 17.5 % High 11.5 - 15.0 % [facility] Hematocrit (Bld) [Volume fraction] 23 % Low 40.0 - 52.0 % [facility] Hemoglobin (Bld) [Mass/Vol] 7.1 g/dL Low 13.0 - 18.0 g/dL [facility] Immature granulocytes (Bld) [#/Vol] 0.1 10*3/uL High NINF - 0.1 10*3/uL [facility] Immature granulocytes/100 WBC (Bld) 0.4 % 0.0 - 2.0 % [facility] Interpretation and review of laboratory results Abnormal [facility] Lymphocytes (Bld) [#/Vol] 1.5 10*3/uL 1.0 - 4.3 10*3/uL [facility] Lymphocytes/100 WBC (Bld) 9.9 % Low 15.0 - 45.0 % [facility] MCH (RBC) [Entitic mass] 24.6 pg Low 26. 0 - 34.0 pg [facility] MCHC (RBC) [Mass/Vol] 30.9 % 30.5 - 36.0 % [facility] MCV (RBC) [Entitic vol] 79.6 fL 77.0 - 99.0 fL [facility] Monocytes (Bld) [#/Vol] 1.4 10*3/uL High 0.0 - 0.9 10*3/uL [facility] Monocytes/100 WBC (Bld) 9.4 % 5.0 - 13.0 % [facility] Neutrophils (Bld) [#/Vol] 11 10*3/uL High 1.8 - 7.5 10*3/uL [facility] Neutrophils/100 WBC (Bld) 74.1 % 38.0 - 82.0 % [facility] Nucleated RBC/100 WBC (Bld) [Ratio] 0 % [facility] Platelet mean volume (Bld) [Entitic vol] 8.8 fL Low 9.0 - 12.7 fL [facility] Platelets (Bld) [#/Vol] 577 10*3/uL High 140 - 440 10*3/uL [facility] RBC (Bld) [#/Vol] 2.89 10*6/uL Low 4.40 - 5.9 0 10*6/uL [facility] WBC (Bld) [#/Vol] 14.8 10*3/uL High 3.6 - 10.7 10*3/uL [facility] CBC WITH AUTO DIFFERENTIALon 12-24-2024 Basophils (Bld) [#/Vol] 0.1 10*3/uL Normal 0.0-0.2 [facility] Comment on above: Performed By: #### L [id number] ####Librarian: JAZLYN JIMENEZ ([id number])[facility] ([facility])[address] [place] [address] Basophils/100 WBC (Bld) 0.5 % Normal 0.0-2.0 [facility] Comment on above: Performed By: #### L [id number] ####Librarian: JAZLYN JIMENEZ ([id number])[facility] ([facility])[address] [place] [address] [place] Eosinophils (Bld) [#/Vol] 0.8 10*3/uL High 0.0-0.5 [facility] Comment on above: Performed By: #### L [id number] ####Librarian: JAZLYN JIMENEZ ([id number])[facility] ([facility])[address] [place] [address] [place] Eosinophils/100 WBC (Bld) 5.7 % Normal 0.0-6.0 [facility] Comment on above: Performed By: #### L [id number] ####Librarian: JAZLYN JIMENEZ ([id number])[facility])[address] [place] [address] Erythrocyte distribution width (RBC) [Ratio] 17.5 % High 11.5-15.0 [facility] Comment on above: Performed By: #### L [id number] ####Librarian: JAZLYN JIMENEZ ([id number])[facility])[address] [place] [address] Hematocrit (Bld) [Volume fraction] 23.0 % Low 40.0-52.0 [facility] Comment on above: Performed By: #### L [id number] ####Librarian: JAZLYN JIMENEZ ([id number])[facility])[address] [place] [address] Hemoglobin (Bld) [Mass/Vol] 7.1 g/dL Low 13.0-18.0 [facility] Comment on above: Performed By: #### L [id number] ####Librarian: JAZLYN JIMENEZ ([id number])[facility])[address] [place] [address] IMMATURE GRANS % 0.4 % Normal 0.0-2.0 [facility] Comment on above: Performed By: #### L [id number] ####Librarian: JAZLYN JIMENEZ ([id number])[facility])[address] [place] [address] IMMATURE GRANS ABSOLUTE 0.1 10*3/uL High <0.1 [facility] Comment on above: Performed By: #### L [id number] ####Librarian: JAZLYN JIMENEZ ([id number])[facility])[address] [place] [address] Lymphocytes (Bld) [#/Vol] 1.5 10*3/uL Normal 1.0-4.3 [facility] Comment on above: Performed By: #### L [id number] ####Librarian: JAZLYN JIMENEZ ([id number])[facility])[address] [place] [address] Lymphocytes/100 WBC (Bld) 9.9 % Low 15.0-45.0 [facility] Comment on above: Performed By: #### L [id number] ####Librarian: JAZYLN JIMENEZ ([phone])[facility])[address] [place] [address] MCH (RBC) [Entitic mass] 24.6 pg Low 26.0-34.0 [facility] Comment on above: Performed By: #### L [id number] ####Librarian: JAZLYN JIMENEZ ([id number])[facility])[address] [place] [address] MCHC 30.9 % Normal 30.5-36.0 [facility] Comment on above: Performed By: #### L [id number] ####Librarian: JAZLYN JIMENEZ ([id number])[facility])[address] [place] [address] MCV (RBC) [Entitic vol] 79.6 fL Normal 77.0-99.0 [facility] Comment on above: Performed By: #### L [id number] ####Librarian: JAZLYN JIMENEZ ([id number])[facility])[address] [place] [address] Monocytes (Bld) [#/Vol] 1.4 10*3/uL High 0.0-0.9 [facility] Comment on above: Performed By: #### L [id number] ####Librarian: JAZLYN JIMENEZ ([id number])[facility])[address] [place] [address] Monocytes/100 WBC (Bld) 9.4 % Normal 5.0-13.0 [facility] Comment on above: Performed By: #### L [id number] ####Librarian: JAZLYN JIMENEZ ([id number])[facility])[address] [place] [address] NEUTROPHILS ABSOLUTE 11.0 10*3/uL High 1.8-7.5 [facility] Comment on above: Performed By: #### L [id number] ####Librarian: JAZLYN JIMENEZ ([id number])[facility])[address] [place] [address] Neutrophils/100 WBC (Bld) 74.1 % Normal 38.0-82.0 [facility] Comment on above: Performed By: #### L [id number] ####Librarian: JAZLYN JIMENEZ ([phone])[facility])[address] [place] [address] NRBC 0.0 /100 WBCs Normal 0.0-2.0 [facility] Comment on above: Performed By: #### L [id number] ####Librarian: JAZLYN JIMENEZ ([id number])[facility])[address] [place] [address] Platelet mean volume (Bld) [Entitic vol] 8.8 fL Low 9.0-12.7 [facility] Comment on above: Performed By: #### L [id number] ####Librarian: JAZLYN JIMENEZ ([id number])[facility])[address] [place] [address] Platelets (Bld) [#/Vol] 577 10*3/uL High 140-440 [facility] Comment on above: Performed By: #### L [id number] ####Librarian: JAZLYN JIMENEZ ([id number])[facility])[address] [place] [address] RBC (Bld) [#/Vol] 2.89 10*6/uL Low 4.40-5.90 [facility] Comment on above: Performed By: #### L [id number] ####Librarian: JAZLYN JIMENEZ ([id number])[facility])[address] [place] [address] WBC (Bld) [#/Vol] 14.8 10*3/uL High 3.6-10.7 [facility] Comment on above: Performed By: #### L [id number] ####Librarian: JAZLYN JIMENEZ ([id number])[facility])[address] [place] [address] Consulton 12-24-2024 Consult [facility] CONSULT Note Kevan La AGE: [...] BC taken Received zosyn, vancomycin and fluids. [facility] accepted him but waiting on bed until later this afternoon. Pt states he was dropped off here from [facility] as it was the closest hospital. All [...] respiratory distress, no cyanosis Left hip/post thigh: [id number]. Wound beds with pink tissue and slough. [...] to follow Recommend to follow up at [facility] Outpatient wound care center after hospital [...] own independent evaluation of this patient. [facility] Nursing Noteon 12-24-2024 Nursing Note See new oxy 5 mg one time dose order [facility] Nursing Note Attending secure chatted due to patient asking for PRN pain meds with soft BP's. Awaiting answer [facility] Nursing Note Called and this nurse gave report to Lori NEWTON for patient. P/U time still 1230. Patient updated. [facility] Nursing Note Call received from . Patient has bed waiting at [facility] room [facility]. Nurse to nurse report number [phone]. Social work to arrange transportation in AM. Patient notified [facility] 30on 12-23-2024 30 Problem: Knowledge Deficit [...] monitored and maintained or improved Outcome: Progressing [facility] Consulton 12-23-2024 Consult Attestation signed by Noah Stewart DO at 12/23/2024 7:11 PM I have personally performed a [id number] diagnostic evaluation on this patient on date of service 12/23/24. History, labs, imaging studies, and electronic medical record have been reviewed by me. This note documented by the []Critical Care Fellow [x]greenhouse superintendent []BRITTNEY reflects my history, exam, and medical decision making. I have reviewed and agree with the care plan. Changes were made in the orders as necessary. ROS documentation was reviewed and negative unless otherwise stated in HPI. Additional pertinent interval history, ROS, and physical exam findings: AdmitDate = 12/22/2024 LOS: 0 Brought to ER from [facility] with concern for worsening left hip wound [...] hip and hidradenitis suppurativa who presented to [facility] 12/22 from [facility] for increased drainage and malodor of L hip wound. He is awaiting transfer to [facility]. Of note, patient recently hospitalized at 12/07 - 12/17 and was discharged to [facility] on Augmentin through 01/12. He had [...] Resource Strain: Medium Risk (12/07/2024) Received from [facility] Overall Financial Resource Strain (CARDIA) Difficulty of Paying Living Expenses: Somewhat hard Food Insecurity: No Food Insecurity (12/07/2024) Received from [facility] Hunger Vital Sign Worried About Running Out of Food in the Last Year: Never true Ran Out of Food in the Last Year: Never true Recent Concern: Food Insecurity - Food Insecurity Present (10/11/2024) Received from [facility] Vital Sign Worried About Running Out of Food in the Last Year: Sometimes true Ran Out of Food in the Last Year: Sometimes true Transportation Needs: No Transportation Needs (12/07/2024) Received from [facility] PRAPARE - Transportation Lack of Transportation (Medical): No Lack of (more content not included)... [facility] ED Nursing Noteon 12-23-2024 ED Nursing Note RN informed patient admitting team of patient b/p . Pt on the monitor. Pt declined feeling dizzy or nauseous. Pt want pants, RN is looking for pants [facility] ED Nursing Note Pt moved into inpatient bed. Pt on the monitor. [facility] ED Nursing Note Report given to Sunni NEWTON [facility] ED Nursing Note Received report from Parish NEWTON [facility] ED Nursing Note Levo drip turned off. BP 102/64. [facility] Progress Noteon 12-23-2024 Progress Note Pharmacy [...] creatinine, and vancomycin levels interfaced automatically to [employer] and data has been analyzed and interpreted. [...] PharmD Clinical Pharmacist Available via Secure Chat [facility] BLOOD CULTUREon 12-22-2024 Bacteria identified Cx Nom (Bld) BLOOD CULTURE Reference No growth at 5 days ORDER COMMENTS: Blood Collection Site: Right Arm [ S = SUSCEPTIBLE R = RESISTANT I = INTERMEDIATE S-DD = Susceptible-dose dependent NS = Non-susceptible NO = No Interpretation ] [facility] Comment on above: Performed By: #### L [id number], [id number] #### Librarian: JAZLYN JIMENEZ ([id number]) [facility] ([address] Bacteria identified Cx Nom (Bld) BLOOD CULTURE Reference No growth at 5 days ORDER COMMENTS: Blood Collection Site: Left Arm [ S = SUSCEPTIBLE R = RESISTANT I = INTERMEDIATE S-DD = Susceptible-dose dependent NS = Non-susceptible NO = No Interpretation ] [facility] Comment on above: Performed By: #### L [id number], [id number] #### Librarian: JAZLYN JIMENEZ ([id number]) [facility] [address] [place] [address] CBC W Auto Differential pane l (Bld)Ordered By: Flores Rausch on 12-22-2024 Erythrocyte distribution width (RBC) [Ratio] 17.3 % High 11.5 - 15.0 % [facility] Hematocrit (Bld) [Volume fraction] 26.8 % Low 40.0 - 52.0 % [facility] Hemoglobin (Bld) [Mass/Vol] 8.4 g/dL Low 13.0 - 18.0 g/dL [facility] Interpretation and review of laboratory results Abnormal [facility] MCH (RBC) [Entitic mass] 25.2 pg Low 26. 0 - 34.0 pg [facility] MCHC (RBC) [Mass/Vol] 31.3 % 30.5 - 36.0 % [facility] MCV (RBC) [Entitic vol] 80.5 fL 77.0 - 99.[address] [facility] [place] Platelet mean volume (Bld) [Entitic vol] 8.9 fL Low 9.0 - 12.7 fL [facility] Platelets (Bld) [#/Vol] 698 10*3/uL High 140 - 440 10*3/uL [facility] RBC (Bld) [#/Vol] 3.33 10*6/uL Low 4.40 - 5.9 0 10*6/uL [facility] WBC (Bld) [#/Vol] 19.4 10*3/uL High 3.6 - 10.7 10*3/uL [facility] CBC WITH AUTO DIFFERENTIALon 12-22-2024 Erythrocyte distribution width (RBC) [Ratio] 17.3 % High 11.5-15.0 [facility] Comment on above: Performed By: #### L [id number], [id number] #### Librarian: JAZLYN JIMENEZ ([id number]) [facility] ([facility]) [address] [place] [address] Hematocrit (Bld) [Volume fraction] 26.8 % Low 40.0-52.0 [facility] Comment on above: Performed By: #### L LAURE, [id number] #### Librarian: JAZLYN JIMENEZ ([id number]) [facility] ([facility]) [address] [place] [address] Hemoglobin (Bld) [Mass/Vol] 8.4 g/dL Low 13.0-18.0 [facility] Comment on above: Performed By: #### L [id number], [id number] #### Librarian: JAZLYN JIMENEZ ([id number]) [facility] ([facility]) [address] [place] [address] MCH (RBC) [Entitic mass] 25.2 pg Low 26.0-34.0 [facility] Comment on above: Performed By: #### L [id number], [id number] #### Librarian: JAZLYN JIMENEZ ([id number]) [facility]) [address] [place] [address] MCHC 31.3 % Normal 30.5-36.0 [facility] Comment on above: Performed By: #### L [id number], [id number] #### Librarian: JAZLYN JIMENEZ ([id number]) [facility] ([facility]) [address] [place] [address] MCV (RBC) [Entitic vol] 80.5 fL Normal 77.0-99.0 [facility] Comment on above: Performed By: #### L [id number], [id number] #### Librarian: JAZLYN JIMENEZ ([id number]) [facility] ([facility]) [address] [place] [address] Platelet mean volume (Bld) [Entitic vol] 8.9 fL Low 9.0-12.7 [facility] Comment on above: Performed By: #### L [id number], [id number] #### Librarian: JAZLYN JIMENEZ ([id number]) [facility]) [address] [place] [address] Platelets (Bld) [#/Vol] 698 10*3/uL High 140-440 [facility] Comment on above: Performed By: #### L [id number], [id number] #### Librarian: JAZLYN JIMENEZ ([id number]) [facility] ([facility]) [address] [place] [address] RBC (Bld) [#/Vol] 3.33 10*6/uL Low 4.40-5.90 [facility] Comment on above: Performed By: #### L [id number], [id number] #### Librarian: JAZLYN JIMENEZ ([id number]) [facility] ([facility]) [address] [place] [address] WBC (Bld) [#/Vol] 19.4 10*3/uL High 3.6-10.7 [facility] Comment on above: Performed By: #### L [id number], [id number] #### Librarian: JAZLYN JIMENEZ ([id number]) [facility]) [address] [place] [address] COMPLETE URINALYSISon 2024 BILIRUBIN, TOTAL PRESENCE IN URINE Negative Normal Negative [facility] Comment on above: Performed By: #### L AB347 ####Librarian: JAZLYN JIMENEZ ([id number])[facility])[address] [place] [address] Clarity (U) Clear Normal Clear [facility] Comment on above: Performed By: #### L [id number] ####Librarian: JAZLYN JIMENEZ ([id number])[facility])[address] [place] [address] Color (U) Light Yellow Normal Lt. Yellow [facility] Comment on above: Performed By: #### L AB347 ####Librarian: JAZLYN JIMENEZ ([id number])[facility])[address] [place] [address] GLUCOSE (MG/DL) IN URINE Normal Normal Normal (<70 ) [facility] Comment on above: Performed By: #### L AB347 ####Librarian: JAZLYN JIMENEZ ([id number])[facility])[address] [place] [address] HEMOGLOBIN PRESENCE IN URINE Negative Normal Negative [facility] Comment on above: Performed By: #### L AB347 ####Librarian: JAZLYN JIMENEZ ([id number])[facility])[address] [place] [address] Ketones Ql (U) Negative Normal Negative [facility] Comment on above: Performed By: #### L AB347 ####Librarian: JAZLYN JIMENEZ ([id number])[facility] ([facility])[address] [place] [address] LEUKOCYTE ESTERASE PRESENCE IN URINE BY TEST STRIP Negative Normal Negative [facility] Comment on above: Performed By: #### L AB347 ####Librarian: JAZLYN JIMENEZ ([id number])[facility] ([facility])[address] [place] [address] NITRITE PRESENCE IN URINE Negative Normal Negative [facility] Comment on above: Performed By: #### L [id number] ####Librarian: JAZLYN JIMENEZ ([id number])[facility] ([facility])[address] [place] [address] pH (U) 6.0 [pH] Normal 5.0-8.0 [facility] Comment on above: Performed By: #### L [id number] ####Librarian: JAZLYN JIMENEZ ([id number])[facility] ([facility])[address] [place] [address] Protein (U) [Mass/Vol] Negative Normal Negative [facility] Comment on above: Performed By: #### L [id number] ####Librarian: JAZLYN JIMENEZ ([id number])[facility] ([facility])[address] [place] [address] Specific gravity (U) [Rel density] 1.009 Normal 1.005-1.030 [facility] Comment on above: Performed By: #### L [id number] ####Librarian: JAZLYN JIMENEZ ([id number])[facility] ([facility])[address] [place] [address] [place] UROBILINOGEN (MG/DL) IN URINE Normal Normal Normal (0-1) [facility] Comment on above: Performed By: #### L [id number] ####Librarian: JAZLYN JIMENEZ ([id number])[facility] [place] [address] COMPREHENSIVE METABOLIC PANE Yuriy 12-22-2024 Albumin [Mass/Vol] 2.6 g/dL Low 3.5-5.0 [facility] Comment on above: Performed By: #### L [id number], [id number] #### Librarian: JAZLYN JIMENEZ ([id number]) [facility] ([facility]) [address] [place] [address] ALP [Catalytic activity/Vol] 65 U/L Normal 40-150 [facility] Comment on above: Performed By: #### L CL6315, [id number] #### Librarian: JAZLYN JIMENEZ ([id number]) [facility] ([facility]) [address] [place] [address] ALT [Catalytic activity/Vol] 6 U/L Normal <40 [facility] Comment on above: Performed By: #### L [id number], [id number] #### Librarian: JAZLYN JIMENEZ ([id number]) [facility] ([facility]) [address] [place] [address] Anion gap [Moles/Vol] 10 mmol/L Normal 3-13 [facility] Comment on above: Performed By: #### L [id number], [id number] #### Librarian: JAZLYN JIMENEZ ([id number]) [facility] ([facility]) [address] [place] [address] AST [Catalytic activity/Vol] 16 U/L Normal <34 [facility] Comment on above: Performed By: #### L NS3812, [id number] #### Librarian: JAZLYN JIMENEZ ([id number]) [facility] ([facility]) [address] [place] [address] Bilirubin [Mass/Vol] 0.4 mg/dL Normal <1.2 [facility] Comment on above: Performed By: #### L QM2773, [id number] #### Librarian: JAZLYN JIMENEZ ([id number]) [facility] ([facility]) [address] [place] [address] Calcium [Mass/Vol] 11.2 mg/dL High 8.4-10.2 [facility] Comment on above: Performed By: #### L [id number], [id number] #### Librarian: JAZLYN JIMENEZ ([id number]) [facility] [address] [place] [address] Chloride [Moles/Vol] 98 mmol/L Normal 98-[address] [facility] Comment on above: Performed By: #### L [id number], [id number] #### Librarian: JAZLYN JIMENEZ ([id number]) [facility] [address] [place] [address] CO2 [Moles/Vol] 24 mmol/L Normal 22-29 [facility] Comment on above: Performed By: #### L [id number], [id number] #### Librarian: JAZLYN JIMENEZ ([id number]) [facility] ([facility]) [address] [place] [address] Creatinine [Mass/Vol] 1.16 mg/dL Normal 0.72-1.25 [facility] Comment on above: Performed By: #### L DJ9397, [id number] #### Librarian: JAZLYN JIMENEZ ([id number]) [facility] ([facility]) [address] [place] [address] [place] GLOMERULAR FILTRATION RATE ML/MIN/1.73 SQ M.PREDICTED 76.3 mL/min/1.73m*2 Normal >60.0 [facility] Comment on above: Result Comment: Calc ulation based on the Chronic Kidney Disease Epidemiology Collaboration (CKD-EPI) equation refit without adjustment for race Performed By: #### L [id number], [id number] #### Librarian: JAZLYN JIMENEZ ([id number]) [facility] ([facility]) [address] [place] [address] [place] Glucose [Mass/Vol] 108 mg/dL High 74-100 [facility] Comment on above: Performed By: #### L NO6273, [id number] #### Librarian: JAZLYN JIMENEZ ([id number]) [facility] ([facility]) [address] [place] [address] Potassium [Moles/Vol] 4.0 mmol/L Normal 3.5-5.1 [facility] Comment on above: Result Comment: [facility] potassium values may be up to 0.5 mmol/L lower than serum values. Performed By: #### L HD1806, [id number] #### Librarian: JAZLYN JIMENEZ ([id number]) [facility]) [address] [place] [address] Protein [Mass/Vol] 7.2 g/dL Normal 6.4-8.3 [facility] Comment on above: Performed By: #### L [id number], [id number] #### Librarian: JAZLYN JIMENEZ ([id number]) [facility] [address] [place] [address] Sodium [Moles/Vol] 132 mmol/L Low 136-145 [facility] Comment on above: Performed By: #### L NJ6295, [id number] #### Librarian: JAZLYN JIMENEZ ([id number]) [facility]) [address] [place] [address] Urea nitrogen [Mass/Vol] 11 mg/dL Normal 9-23 [facility] Comment on above: Performed By: #### L [id number], [id number] #### Librarian: JAZLYN JIMENEZ ([id number]) [facility]) [address] [place] [address] CULTURE ANAEROBICon 12-23-19 25 CULTURE ANAEROBIC ANAEROBIC CULTURE (A) Reference BACTEROIDES FRAGILIS GROUP Moderate Bacteroides fragilis group (A) FUSOBACTERIUM GONIDIAFORMANS Fusobacterium gonidiaformans (A) This is an edited result. Previous organism was Anaerobic Gram-negative cocci on 12/24/2024 at 1358 EDT. [ S = SUSCEPTIBLE R = RESISTANT I = INTERMEDIATE S-DD = Susceptible-dose dependent NS = Non-susceptible NO = No Interpretation ] Normal [facility] Comment on above: Performed By: #### L [id number], [id number] #### Librarian: JAZLYN JIMENEZ ([id number]) [facility]) [address] [place] [address] CULTURE, AEROBIC BACTERIA WI TH GRAM STAINon [...] Non-susceptible NO = No Interpretation ] Normal [facility] Comment on above: Performed By: #### L [id number], [id number] #### Librarian: JAZLYN JIMENEZ ([id number]) [facility] [address] [place] [address] Comprehensive metabolic 1998 panelon 12-22-2024 Albumin [Mass/Vol] 2.6 g/dL Low 3.5 - 5.0 g/dL [facility] ALP [Catalytic activity/Vol] 65 U/L 40 - 150 U/L [facility] ALT [Catalytic activity/Vol] 6 U/L NINF - 40 U/L [facility] Anion gap [Moles/Vol] 10 mmol/L 3 - 13 mmol/L [facility] AST [Catalytic activity/Vol] 16 U/L NINF - 34 U/L [facility] Bilirubin [Mass/Vol] 0.4 mg/dL NINF - 1.2 mg/dL [facility] Calcium [Mass/Vol] 11.2 mg/dL High 8.4 - 10. 2 mg/dL [facility] Chloride [Moles/Vol] 98 mmol/L 98 - 10 7 mmol/L [facility] CO2 [Moles/Vol] 24 mmol/L 22 - 29 mmol/L [facility] Creatinine [Mass/Vol] 1.16 mg/dL 0.72 - 1.25 mg/dL [facility] GFR/1.73 sq M.predicted (S/P/Bld) [Vol rate/Area] 76.3 mL/min - PINF [facility] Comment on above: Calculation based on the Chronic Kidney Disease Epidemiology Collaboration (CKD-EPI) equation refit without adjustment for race Glucose [Mass/Vol] 108 mg/dL High 74 - 100 mg/dL [facility] Interpretation and review of laboratory results Abnormal [facility] Potassium [Moles/Vol] 4 mmol/L 3.5 - 5.1 mmol/L [facility] Comment on above: Plasma potassium jeri ues may be up to 0.5 mmol/L lower than serum values. Protein [Mass/Vol] 7.2 g/dL 6.4 - 8.3 g/dL [facility] Sodium [Moles/Vol] 132 mmol/L Low 136 - 145 mmol/L [facility] Urea nitrogen [Mass/Vol] 11 mg/dL 9 - 23 mg/d L [facility] ED Nursing Noteon 12-22-2024 ED Nursing Note Levo titrated to 2mcg/min. Patient BP remains stable. Normal [facility] ED Nursing Note Levo titrated to 4mcg/min. BP remains stable. Patient asymptomatic. Normal [facility] ED Nursing Note Levo titrated to 6mcg/min. BP remains stable. Patient asymptomatic. Normal [facility] ED Nursing Note Report given to Parish [place] Normal [facility] ED Nursing Note Dressing change completed with ABD pads, 2x2s and tape. Pt repostioned and saturated chucks removed Normal [facility] ED Nursing Note Messaged pharmacy regarding missing vancomycin dose Normal [facility] ED Nursing Note Report given to Mary [place] for lunch coverage Normal [facility] ED Provider Noteon ED Provider Note HPI Chief Complaint Patient presents with ? Wound Infection Pt arrives by life care from [facility] [place], [facility] life care pt has had wound infection [...] his facility about a week ago from [facility] as he has SCC treating with [...] typical urinary output. History provided by: Patient vial gauger used: No INFORMED PHOTO CONSENT: The patient has given verbal consent to have photos taken of left hip and inserted into their provider note as a part of their permanent medical record for purposes of documentation, treatment management, and/or medical review. All images taken were transmitted and stored on a secure [employer] located within a Media Folder Tab by a registered [employer] Application Device. See Media tab in [employer] or photo as below. Kofi Coma Scale [...] HENT: Head: Normocephalic and atraumatic. Mouth/Throat: Lips: [place]. Mouth: Mucous membranes are moist. Cardiovascular: Rate [...] Navas MD (more content not included)... Normal [facility] ED Provider Note Emergency Department Encounter [facility] EMERGENCY DEPT Patient: Kevan La : [...] toward the left greater trochanter. He is residential had reported that he is currently on chemotherapy. He was hospitalized recently due to concerns of an abscess and had this managed by general surgery at [facility]. He receives most of his care for hidradenitis suppurativa at and is requesting to be transferred given that they are familiar with his care. Believe this is appropriate due to patient will require further evaluation by the surgery and primary team taking care of his chronic wound. We will continue IV antibiotics and IV pressors and transfer patient to [facility] for management. Diagnostics interpreted [...] procedures or time spent by the physicians language assistant if they were caring for this patient. [...] for clarification.) Levi Mack, DO [employer] Levi Mack, DO 12/22/24 1730 Levi Mack, DO 12/22/[address] [facility] ED Provider Note I received this [...] 16 hours now. We reached out to [facility] and they stated that there would not [...] fluid responsive. I reached back out to [facility] to get him accepted to a regular nursing floor. I spoke with Dr Benitez at [facility] who accepted the patient to the regular nursing floor but they will still not have beds until most likely later this afternoon so will plan to admit him here medically so that the can be under the supervision and care of a hospitalist. Admitted in stable condition. Mary Calvert MD 12/23/24 0629 Normal [facility] ED Provider Note Pt signed out to me by Dr. Mack. Pt is awaiting transfer to for septic shock in setting of left buttock wound. Mani Dc, 12/23/24 0115 Normal [facility] LACTIC ACID WITH REFLEXon Lactate [Moles/Vol] 1.7 mmol/L Normal 0.5-2.2 [facility] Comment on above: Performed By: #### L [id number] ####Librarian: JAZLYN JIMENEZ ([id number])[facility] ([address] Laboratory - Chemistry and C hemistry - challengeon 12-22-2024 Lactate [Moles/Vol] 1.7 mmol/L 0.5 - 2. 2 mmol/L [facility] Laboratory - Hematology and Cell countson 12-22-2024 Band form neutrophils (Bld) [#/Vol] 0.4 10*3/uL High NINF - 0.0 10*3/uL [facility] Band form neutrophils/100 WBC (Bld) 2 % High NINF - 0 % [facility] Basophils (Bld) [#/Vol] 0.2 10*3/uL 0.0 - 0.2 10*3/uL [facility] Basophils/100 WBC (Bld) 1 % 0 - 2 % [facility] Lymphocytes (Bld) [#/Vol] 0.8 10*3/uL Low 1.0 - 4.3 10*3/uL [facility] Lymphocytes/100 WBC (Bld) 4 % Low 15 - 45 % [facility] Monocytes (Bld) [#/Vol] 1 10*3/uL High 0.0 - 0.9 10*3/uL [facility] Monocytes/100 WBC (Bld) 5 % 5 - 13 % [facility] Neutrophils (Bld) [#/Vol] 17.5 10*3/uL High 1.8 - 7.5 10*3/uL [facility] Ovalocytes LM Ql (Bld) Moderate Abnormal (none) [facility] Poikilocytosis LM Ql (Bld) Moderate Abnormal (none) [facility] RBC morphology finding Nom (Bld) abnormal [facility] Segmented neutrophils/100 WBC (Bld) 88 % High 38 - 82 % [facility] Stomatocytes LM Ql (Bld) Moderate Abnormal (none) [facility] MANUAL DIFFERENTIAL (CELLAVI CHRIS)on 12-22-2024 BAND NEUTROPHILS TOTAL PER COUNTED LEUKOCYTES BY MANUAL COUNT 2 Normal [facility] Comment on above: Performed By: #### L [id number], [id number] #### Librarian: JAZLYN JIMENEZ ([id number]) [facility] ([facility] [address] [place] [address] [place] BANDS (10*3/UL) IN BLOOD-CELLAVISION 0.4 10*3/uL High <=0.0 [facility] Comment on above: Performed By: #### Kamila [id number], [id number] #### Librarian: JAZLYN JIMENEZ ([id number]) [facility] ([facility] [address] [place] [address] [place] BASOPHILS (10*3/UL) IN BLOOD-CELLAVISION 0.2 10*3/uL Normal 0.0-0.2 [facility] Comment on above: Performed By: #### Kamila [id number], [id number] #### Librarian: JAZLYN JIMENEZ ([id number]) [facility] ([facility]) [address] [place] [address] [place] BASOPHILS TOTAL PER COUNTED LEUKOCYTES BY MANUAL COUNT 1 Normal [facility] Comment on above: Performed By: #### L [id number], [id number] #### Librarian: JAZLYN JIMENEZ ([id number]) [facility] ([facility]) [address] [place] [address] [place] BASOPHILS/100 LEUKOCYTES IN BLOOD-CELLAVISION 1 % Normal 0-2 [facility] Comment on above: Performed By: #### L [id number], [id number] #### Librarian: JAZLYN JIMENEZ ([id number]) [facility]) [address] [place] [address] [place] BLASTS TOTAL PER COUNTED LEUKOCYTES BY MANUAL COUNT Normal [facility] Comment on above: Performed By: #### L [id number], [id number] #### Librarian: JAZLYN JIMENEZ ([id number]) [facility] ([facility]) [address] [place] [address] EOSINOPHILS TOTAL PER COUNTED LEUKOCYTES BY MANUAL COUNT [facility] Comment on above: Performed By: #### L [id number], [id number] #### Librarian: JAZLYN JIMENEZ ([id number]) [facility]) [address] [place] [address] [place] LYMPHOCYTES (10*3/UL) IN BLOOD-CELLAVISION 0.8 10*3/uL Low 1.0-4.3 [facility] Comment on above: Performed By: #### L [id number], [id number] #### Librarian: JAZLYN JIMENEZ ([id number]) [facility] ([facility]) [address] [place] [address] [place] LYMPHOCYTES TOTAL PER COUNTED LEUKOCYTES BY MANUAL COUNT 4 Normal [facility] Comment on above: Performed By: #### L [id number], [id number] #### Librarian: JAZLYN JIMENEZ ([id number]) [facility]) [address] [place] [address] [place] LYMPHOCYTES/100 LEUKOCYTES IN BLOOD-CELLAVISION 4 % Low 15-45 [facility] Comment on above: Performed By: #### L [id number], [id number] #### Librarian: JAZLYN JIMENEZ ([id number]) [facility]) [address] [place] [address] METAMYELOCYTES TOTAL PER COUNTED LEUKOCYTES BY MANUAL COUNT [facility] Comment on above: Performed By: #### L [id number], [id number] #### Librarian: JAZLYN [id number]) [facility] ([facility]) [address] [place] [address] [place] MONOCYTES (10*3/UL) IN BLOOD-CELLAVISION 1.0 10*3/uL High 0.0-0.9 [facility] Comment on above: Performed By: #### L [id number], [id number] #### Librarian: JAZLYN JIMENEZ ([id number]) [facility] [address] [place] [address] [place] MONOCYTES TOTAL PER COUNTED LEUKOCYTES BY MANUAL COUNT 5 Normal [facility] Comment on above: Performed By: #### L [id number], [id number] #### Librarian: JAZLYN JIMENEZ ([id number]) [facility] ([facility]) [address] [place] [address] [place] MONOCYTES/100 LEUKOCYTES IN BLOOD-SAM 5 % Normal 5-13 [facility] Comment on above: Performed By: #### L [id number], [id number] #### Librarian: JAZLYN JIMENEZ ([id number]) [facility] [address] [place] [address] [place] MYELOCYTES COUNTED BY MANUAL COUNT Normal [facility] Comment on above: Performed By: #### L [id number], [id number] #### Librarian: JAZLYN JIMENEZ ([id number]) [facility]) [address] [place] [address] [place] NEUTROPHILS BAND FORM/100 LEUKOCYTES IN BLOOD-CELLAVISI 2 % High <=0 [facility] Comment on above: Performed By: #### L [id number], [id number] #### Librarian: JAZLYN JIMENEZ ([id number]) [facility] ([facility]) [address] [place] [address] [place] NEUTROPHILS TOTAL PER COUNTED LEUKOCYTES BY MANUAL COUNT 89 Normal [facility] Comment on above: Performed By: #### L [id number], [id number] #### Librarian: JAZLYN JIMENEZ ([id number]) [facility]) [address] [place] [address] [place] OVALOCYTES PRESENCE IN BLOOD BY LIGHT MICROSCOPY Moderate Abnormal (none) [facility] Comment on above: Performed By: #### L [id number], [id number] #### Librarian: JAZLYN JIMENEZ ([id number]) [facility]) [address] [place] [address] POIKILOCYTOSIS (PRESENCE) IN BLOOD BY LIGHT MICROSCOPY Moderate Abnormal (none) [facility] Comment on above: Performed By: #### L [id number], [id number] #### Librarian: JAZLYN JIMENEZ ([id number]) [facility]) [address] [place] [address] [place] PROMYELOCYTES TOTAL PER COUNTED LEUKOCYTES BY MANUAL COUNT Normal [facility] Comment on above: Performed By: #### L [id number], [id number] #### Librarian: JAZLYN JIMENEZ ([id number]) [facility] ([facility]) [address] [place] [address] RBC MORPHOLOGY IN BLOOD abnormal Normal [facility] Comment on above: Performed By: #### L [id number], [id number] #### Librarian: JAZLYN JIMENEZ ([id number]) [facility] [address] [place] [address] [place] SEGMENTED NEUTROPHILS (10*3/UL) IN BLOOD-CELLAVISION 17.5 10*3/uL High 1.8-7.5 [facility] Comment on above: Performed By: #### L [id number], [id number] #### Librarian: JAZLYN JIMENEZ ([id number]) [facility] [address] [place] [address] [place] SEGMENTED NEUTROPHILS/100 LEUKOCYTES-CE 88 % High 38-82 [facility] Comment on above: Performed By: #### L [id number], [id number] #### Librarian: JAZLYN JIMENEZ ([id number]) [facility] [address] [place] [address] [place] STOMATOCYTES IN BLOOD BY LIGHT MICROSCOPY Moderate Abnormal (none) [facility] Comment on above: Performed By: #### L [id number], [id number] #### Librarian: JAZLYN JIMENEZ ([id number]) [facility] [address] [place] [address] UNCLASSIFIED CELLS TOTAL PER COUNTED LEUKOCYTES BY MANUAL COUNT Normal [facility] Comment on above: Performed By: #### L [id number], [id number] #### Librarian: JAZLYN JIMENEZ ([id number]) [facility] [address] [place] [address] VARIANT LYMPHOCYTES TOTAL PER COUNTED LEUKOCYTES BY MANUAL COUNT Normal [facility] Comment on above: Performed By: #### L [id number], [id number] #### Librarian: JAZLYN JIMENEZ ([id number]) [facility] ([facility]) [address] [place] [address] No Panel Informationon 12-22 Atypical Lymphocytes Manual [facility] Bands Manual 2 [facility] Basophils Manual 1 [facility] alth Blasts Manual [facility] Eosin[facility] Manual [facility] Interpretation and review of laboratory results Abnormal [facility] Lymphocytes Manual 4 [facility] Metamyelocytes Manual [facility] Monocytes Manual 5 [facility] alth Myelocytes Manual [facility] ealth Neutrophils Manual 89 [facility] Promyelocytes Manual [facility] Unclassified Cells, Manual [facility] Interpretation and review of laboratory results Normal [facility] Progress Noteon 12-22-2024 Progress Note Culture reviewed. Awaiting sensitivity results Normal [facility] Urinalysis complete panel (U )on 12-22-2024 Bilirubin Ql (U) Negative Negative mg/dL [facility] Clarity (U) Clear Clear [facility] Color (U) Light Yellow Lt. Yellow [facility] Glucose Ql (U) Normal Normal (<70) mg/dL [facility] Hemoglobin Ql (U) Negative Negative mg/dL [facility] Interpretation and review of laboratory results Normal [facility] Ketones (U) [Mass/Vol] Negative Negat sulema mg/dL [facility] Leukocyte esterase Test strip Ql (U) Negative Negative Gabe/uL [facility] Nitrite Ql (U) Negative Negative [facility] th pH (U) 6.0 [pH] 5.0 - 8.0 pH [facility] Protein (U) [Mass/Vol] Negative Negat sulema mg/dL [facility] Specific gravity (U) [Rel density] 1.009 1.005 - 1.030 [facility] Urobilinogen (U) [Mass/Vol] Normal Normal (0-1) mg/dL [facility] XR Chest Single viewon 12-22 1. [...] Electronically Signed Date/Time: 12/22/2024 1:25 PM EDT [facility] Patient [...] was obtained and reviewed. Special views: None. [facility] Fidel Navas MD - 12/22/2024 Patient [...] Electronically Signed Date/Time: 12/22/2024 1:25 PM EDT [facility] Radiology Study observation (narrative) [facility] XR Chest Single viewOrdered By: Fidel Navas on 12-22-[address] [facility] [employer] Work Phone: XR Hip - left 3 [...] 12/22/2024 [facility] LA [facility] 1975 [id number] Exam Date/Time: 12/22/2024 13:20 Procedure: XR HIP [...] Electronically Signed Date/Time: 12/22/2024 1:33 PM EDT [facility] Radiology Study observation (narrative) [facility] alth XR Hip - left 3 ViewsOrdered By: Jamison Covarrubias on 12-22-[address] [facility] [employer] Work Phone: CBC W Auto Differential pane l (Bld)on 12-19-2024 Basophils (Bld) [#/Vol] 0.05 10*3/uL [facility] Basophils/100 WBC (Bld) 0.3 % 0.0 - 2.0 % [facility] Eosinophils (Bld) [#/Vol] 0.4 10*3/uL [facility] Eosinophils/100 WBC (Bld) 2.7 % 0.0 - 6.0 % [facility] Erythrocyte distribution width (RBC) [Ratio] 17.4 % High 11.5 - 14.5 % [facility] Hematocrit (Bld) [Volume fraction] 27.2 % Low 41.0 - 52.0 % [facility] Hemoglobin (Bld) [Mass/Vol] 8.2 g/dL Low 13.5 - 17.5 g/dL [facility] Immature granulocytes (Bld) [#/Vol] 0.07 10*3/uL [facility] Immature granulocytes/100 WBC (Bld) 0.5 % 0.0 - 0.9 % [facility] Interpretation and review of laboratory results Abnormal [facility] Lymphocytes (Bld) [#/Vol] 1.9 10*3/uL [facility] Lymphocytes/100 WBC (Bld) 12.7 % 13.0 - 44.0 % [facility] MCH (RBC) [Entitic mass] 25.7 pg Low 26. 0 - 34.0 pg [facility] MCHC (RBC) [Mass/Vol] 30.1 g/dL Low 32.0 - 36.0 g/dL [facility] MCV (RBC) [Entitic vol] 85 fL 80 - 100 fL [facility] Monocytes (Bld) [#/Vol] 1.38 10*3/uL High [facility] Monocytes/100 WBC (Bld) 9.2 % 2.0 - 10.0 % [facility] Neutrophils (Bld) [#/Vol] 11.2 10*3/uL High [facility] Neutrophils/100 WBC (Bld) 74.6 % 40.0 - 80.0 % [facility] Nucleated RBC/100 WBC (Bld) [Ratio] 0 % [facility] Platelets (Bld) [#/Vol] 699 10*3/uL High [facility] RBC (Bld) [#/Vol] 3.19 10*6/uL Low [facility] WBC (Bld) [#/Vol] 15 10*3/uL [facility] Magnesiumon 04-03-2025 Magnesium [Mass/Vol] 2.08 mg/dL 1.60 - 2.40 mg/dL [facility] Magnesium [Mass/Vol]on 12-19 Interpretation and review of laboratory results Normal [facility] No Panel Informationon 12-19 [facility] Renal function 2000 panelon 12-19-2024 Albumin BCP dye [Mass/Vol] 3.1 g/dL Low 3.4 - 5.0 g/dL [facility] Anion gap [Moles/Vol] 11 mmol/L 10 - 2 0 mmol/L [facility] Calcium [Mass/Vol] 10.9 mg/dL High 8.6 - 10. 6 mg/dL [facility] Chloride [Moles/Vol] 99 mmol/L 98 - 10 7 mmol/L [facility] CO2 [Moles/Vol] 31 mmol/L 21 - 32 mmol/L [facility] Creatinine [Mass/Vol] 1.14 mg/dL 0.50 - 1.30 mg/dL [facility] GFR/1.73 sq M.predicted among non-blacks MDRD (S/P/Bld) [Vol rate/Area] 78 mL/min/{1.73_m2} - PINF [facility] Glucose [Mass/Vol] 102 mg/dL High 74 - 99 mg/dL [facility] Interpretation and review of laboratory results Abnormal [facility] Phosphate [Mass/Vol] 2.7 mg/dL 2.5 - 4 .9 mg/dL [facility] Potassium [Moles/Vol] 4.9 mmol/L 3.5 - 5.3 mmol/L [facility] Sodium [Moles/Vol] 136 mmol/L 136 - 145 mmol/L [facility] Urea nitrogen [Mass/Vol] 13 mg/dL 6 - 23 mg/d L [facility] CBC W Auto Differential pane l (Bld)on 12-18-2024 Basophils (Bld) [#/Vol] 0.07 10*3/uL [facility] Basophils/100 WBC (Bld) 0.5 % 0.0 - 2.0 % [facility] Eosinophils (Bld) [#/Vol] 0.63 10*3/uL [facility] Eosinophils/100 WBC (Bld) 4.8 % 0.0 - 6.0 % [facility] Erythrocyte distribution width (RBC) [Ratio] 17.3 % High 11.5 - 14.5 % [facility] Hematocrit (Bld) [Volume fraction] 28.5 % Low 41.0 - 52.0 % [facility] Hemoglobin (Bld) [Mass/Vol] 8.5 g/dL Low 13.5 - 17.5 g/dL [facility] Immature granulocytes (Bld) [#/Vol] 0.06 10*3/uL [facility] Immature granulocytes/100 WBC (Bld) 0.5 % 0.0 - 0.9 % [facility] Interpretation and review of laboratory results Abnormal [facility] Lymphocytes (Bld) [#/Vol] 2.06 10*3/uL [facility] Lymphocytes/100 WBC (Bld) 15.6 % 13.0 - 44.0 % [facility] MCH (RBC) [Entitic mass] 25.1 pg Low 26. 0 - 34.0 pg [facility] MCHC (RBC) [Mass/Vol] 29.8 g/dL Low 32.0 - 36.0 g/dL [facility] MCV (RBC) [Entitic vol] 84 fL 80 - 100 fL [facility] Monocytes (Bld) [#/Vol] 1.3 10*3/uL High [facility] Monocytes/100 WBC (Bld) 9.8 % 2.0 - 10.0 % [facility] Neutrophils (Bld) [#/Vol] 9.09 10*3/uL High [facility] Neutrophils/100 WBC (Bld) 68.8 % 40.0 - 80.0 % [facility] Nucleated RBC/100 WBC (Bld) [Ratio] 0 % [facility] Platelets (Bld) [#/Vol] 705 10*3/uL High [facility] RBC (Bld) [#/Vol] 3.38 10*6/uL Low [facility] WBC (Bld) [#/Vol] 13.2 10*3/uL High [facility] ECG 12 LeadOrdered By: Yamilet Villa on 12-18-2024 Atrial Rate 72 BPM [facility] Work Phone: [phone] P [place] 58 degrees [facility] Work Phone: [phone] P Offset 180 ms [facility] Work Phone: [phone] P Onset 141 ms [facility] Work Phone: [phone] [place] Interval 154 ms [facility] Work Phone: [phone] Q Onset 218 ms [facility] Work Phone: [phone] QRS Count 12 beats [facility] Work Phone: [phone] QRS Duration 92 ms [facility] Work Phone: [phone] QT Interval 382 ms [facility] Work Phone: [phone] QTC Calculation(Bazett) 418 ms U [facility] Work Phone: [phone] QTC Fredericia 406 ms [facility] Work Phone: [phone] R [place] 55 degrees [facility] Work Phone: [phone] T [place] 43 degrees [facility] Work Phone: [phone] T Offset 409 ms [facility] Work Phone: [phone] Ventricular Rate 72 BPM [facility] Work Phone: [phone] [facility] Work Phone: [phone] ECG 12 Leadon 12-18-2024 [facility] Work Phone: CBC W Auto Differential pane l (Bld)on 12-17-2024 Basophils (Bld) [#/Vol] 0.09 10*3/uL [facility] Basophils/100 WBC (Bld) 0.7 % 0.0 - 2.0 % [facility] Eosinophils (Bld) [#/Vol] 0.65 10*3/uL [facility] Eosinophils/100 WBC (Bld) 4.9 % 0.0 - 6.0 % [facility] Erythrocyte distribution width (RBC) [Ratio] 17.4 % High 11.5 - 14.5 % [facility] Hematocrit (Bld) [Volume fraction] 29 % Low 41.0 - 52.0 % [facility] Hemoglobin (Bld) [Mass/Vol] 8.5 g/dL Low 13.5 - 17.5 g/dL [facility] Immature granulocytes (Bld) [#/Vol] 0.06 10*3/uL [facility] Immature granulocytes/100 WBC (Bld) 0.4 % 0.0 - 0.9 % [facility] Interpretation and review of laboratory results Abnormal [facility] Lymphocytes (Bld) [#/Vol] 2.18 10*3/uL [facility] Lymphocytes/100 WBC (Bld) 16.3 % 13.0 - 44.0 % [facility] MCH (RBC) [Entitic mass] 25.1 pg Low 26. 0 - 34.0 pg [facility] MCHC (RBC) [Mass/Vol] 29.3 g/dL Low 32.0 - 36.0 g/dL [facility] MCV (RBC) [Entitic vol] 86 fL 80 - 100 fL [facility] Monocytes (Bld) [#/Vol] 1.22 10*3/uL High [facility] Monocytes/100 WBC (Bld) 9.1 % 2.0 - 10.0 % [facility] Neutrophils (Bld) [#/Vol] 9.17 10*3/uL High [facility] Neutrophils/100 WBC (Bld) 68.6 % 40.0 - 80.0 % [facility] Nucleated RBC/100 WBC (Bld) [Ratio] 0 % [facility] Platelets (Bld) [#/Vol] 754 10*3/uL High [facility] RBC (Bld) [#/Vol] 3.38 10*6/uL Low [facility] WBC (Bld) [#/Vol] 13.4 10*3/uL High [facility] Magnesiumon 12-17-2024 Magnesium [Mass/Vol] 1.94 mg/dL 1.60 - 2.40 mg/dL [facility] Magnesium [Mass/Vol]on 12-17 Interpretation and review of laboratory results Normal [facility] No Panel Informationon 12-17 [facility] Renal function 2000 panelon 12-17-2024 Albumin BCP dye [Mass/Vol] 3.3 g/dL Low 3.4 - 5.0 g/dL [facility] Anion gap [Moles/Vol] 12 mmol/L 10 - 2 0 mmol/L [facility] Calcium [Mass/Vol] 11.3 mg/dL High 8.6 - 10. 6 mg/dL [facility] Chloride [Moles/Vol] 99 mmol/L 98 - 10 7 mmol/L [facility] CO2 [Moles/Vol] 30 mmol/L 21 - 32 mmol/L [facility] Creatinine [Mass/Vol] 1.18 mg/dL 0.50 - 1.30 mg/dL [facility] GFR/1.73 sq M.predicted among non-blacks MDRD (S/P/Bld) [Vol rate/Area] 75 mL/min/{1.73_m2} - PINF [facility] Glucose [Mass/Vol] 92 mg/dL 74 - 99 mg/dL [facility] Interpretation and review of laboratory results Abnormal [facility] Phosphate [Mass/Vol] 2.6 mg/dL 2.5 - 4 .9 mg/dL [facility] Potassium [Moles/Vol] 4.1 mmol/L 3.5 - 5.3 mmol/L [facility] Sodium [Moles/Vol] 137 mmol/L 136 - 145 mmol/L [facility] Urea nitrogen [Mass/Vol] 14 mg/dL 6 - 23 mg/d L [facility] CBC W Auto Differential pane l (Bld)on 12-16-2024 Basophils (Bld) [#/Vol] 0.07 10*3/uL [facility] Basophils/100 WBC (Bld) 0.5 % 0.0 - 2.0 % [facility] Eosinophils (Bld) [#/Vol] 0.72 10*3/uL High [facility] Eosinophils/100 WBC (Bld) 5.6 % 0.0 - 6.0 % [facility] Erythrocyte distribution width (RBC) [Ratio] 17.3 % High 11.5 - 14.5 % [facility] Hematocrit (Bld) [Volume fraction] 27.8 % Low 41.0 - 52.0 % [facility] Hemoglobin (Bld) [Mass/Vol] 8.3 g/dL Low 13.5 - 17.5 g/dL [facility] Immature granulocytes (Bld) [#/Vol] 0.07 10*3/uL [facility] Immature granulocytes/100 WBC (Bld) 0.5 % 0.0 - 0.9 % [facility] Interpretation and review of laboratory results Abnormal [facility] Lymphocytes (Bld) [#/Vol] 2.28 10*3/uL [facility] Lymphocytes/100 WBC (Bld) 17.9 % 13.0 - 44.0 % [facility] MCH (RBC) [Entitic mass] 25.3 pg Low 26. 0 - 34.0 pg [facility] MCHC (RBC) [Mass/Vol] 29.9 g/dL Low 32.0 - 36.0 g/dL [facility] MCV (RBC) [Entitic vol] 85 fL 80 - 100 fL [facility] Monocytes (Bld) [#/Vol] 1.31 10*3/uL [facility] Monocytes/100 WBC (Bld) 10.3 % 2.0 - 10.0 % [facility] Neutrophils (Bld) [#/Vol] 8.31 10*3/uL [facility] Neutrophils/100 WBC (Bld) 65.2 % 40.0 - 80.0 % [facility] Nucleated RBC/100 WBC (Bld) [Ratio] 0 % [facility] Platelets (Bld) [#/Vol] 660 10*3/uL High [facility] RBC (Bld) [#/Vol] 3.28 10*6/uL Low 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 Modified Barium Swallow Evaluationon 12-16-2024 [facility] Work Phone: CBC W Auto Differential pane l (Bld)Ordered By: Ronna Bergeron on 12-15-2024 Basophils (Bld) [#/Vol] 0.06 10*3/uL [facility] Basophils/100 WBC (Bld) 0.4 % 0.0 - 2.0 % [facility] Eosinophils (Bld) [#/Vol] 0.69 10*3/uL [facility] Eosinophils/100 WBC (Bld) 4.9 % 0.0 - 6.0 % [facility] Erythrocyte distribution width (RBC) [Ratio] 17.3 % High 11.5 - 14.5 % [facility] Hematocrit (Bld) [Volume fraction] 27.6 % Low 41.0 - 52.0 % [facility] Hemoglobin (Bld) [Mass/Vol] 8.5 g/dL Low 13.5 - 17.5 g/dL [facility] Immature granulocytes (Bld) [#/Vol] 0.06 10*3/uL [facility] Immature granulocytes/100 WBC (Bld) 0.4 % 0.0 - 0.9 % [facility] Interpretation and review of laboratory results Abnormal [facility] Lymphocytes (Bld) [#/Vol] 2.15 10*3/uL [facility] Lymphocytes/100 WBC (Bld) 15.4 % 13.0 - 44.0 % [facility] MCH (RBC) [Entitic mass] 26 pg 26. 0 - 34.0 pg [facility] MCHC (RBC) [Mass/Vol] 30.8 g/dL Low 32.0 - 36.0 g/dL [facility] MCV (RBC) [Entitic vol] 84 fL 80 - 100 fL [facility] Monocytes (Bld) [#/Vol] 1.49 10*3/uL High [facility] Monocytes/100 WBC (Bld) 10.7 % 2.0 - 10.0 % [facility] Neutrophils (Bld) [#/Vol] 9.49 10*3/uL [facility] Neutrophils/100 WBC (Bld) 68.2 % 40.0 - 80.0 % [facility] Nucleated RBC/100 WBC (Bld) [Ratio] 0 % [facility] Platelets (Bld) [#/Vol] 696 10*3/uL High [facility] RBC (Bld) [#/Vol] 3.27 10*6/uL Low [facility] WBC (Bld) [#/Vol] 13.9 10*3/uL [place] [facility] [place] Comprehensive metabolic 2000 panelOrdered By: Eitan Calvo on 12-15-2024 Albumin BCP dye [Mass/Vol] 3.1 g/dL Low 3.4 - 5.0 g/dL [facility] ALP [Catalytic activity/Vol] 65 U/L 33 - 120 U/L [facility] ALT With P-5'-P [Catalytic activity/Vol] 16 U/L 10 - 52 U/L [facility] Anion gap [Moles/Vol] 15 mmol/L 10 - 2 0 mmol/L [facility] AST With P-5'-P [Catalytic activity/Vol] 17 U/L 9 - 39 U/L [facility] Bilirubin [Mass/Vol] 0.2 mg/dL 0.0 - 1 .2 mg/dL [facility] Calcium [Mass/Vol] 10.6 mg/dL 8.6 - 10. 6 mg/dL [facility] Chloride [Moles/Vol] 100 mmol/L 98 - 10 7 mmol/L [facility] CO2 [Moles/Vol] 28 mmol/L 21 - 32 mmol/L [facility] Creatinine [Mass/Vol] 1.12 mg/dL 0.50 - 1.30 mg/dL [facility] GFR/1.73 sq M.predicted among non-blacks MDRD (S/P/Bld) [Vol rate/Area] 80 mL/min/{1.73_m2} - PINF [facility] Glucose [Mass/Vol] 107 mg/dL High 74 - 99 mg/dL Uni [facility] Interpretation and review of laboratory results Abnormal [facility] Potassium [Moles/Vol] 4.6 mmol/L 3.5 - 5.3 mmol/L [facility] Protein [Mass/Vol] 7.2 g/dL 6.4 - 8.2 g/dL [facility] Sodium [Moles/Vol] 138 mmol/L 136 - 145 mmol/L [facility] Urea nitrogen [Mass/Vol] 12 mg/dL 6 - 23 mg/d L [facility] CBC W Auto Differential pane l (Bld)on 12-14-2024 Basophils (Bld) [#/Vol] 0.07 10*3/uL [facility] Basophils/100 WBC (Bld) 0.6 % 0.0 - 2.0 % [facility] Eosinophils (Bld) [#/Vol] 0.67 10*3/uL [facility] Eosinophils/100 WBC (Bld) 5.9 % 0.0 - 6.0 % [facility] Erythrocyte distribution width (RBC) [Ratio] 17.2 % High 11.5 - 14.5 % [facility] Hematocrit (Bld) [Volume fraction] 27.8 % Low 41.0 - 52.0 % [facility] Hemoglobin (Bld) [Mass/Vol] 8.1 g/dL Low 13.5 - 17.5 g/dL [facility] Immature granulocytes (Bld) [#/Vol] 0.05 10*3/uL [facility] Immature granulocytes/100 WBC (Bld) 0.4 % 0.0 - 0.9 % [facility] Interpretation and review of laboratory results Abnormal [facility] Lymphocytes (Bld) [#/Vol] 2.33 10*3/uL [facility] Lymphocytes/100 WBC (Bld) 20.5 % 13.0 - 44.0 % [facility] MCH (RBC) [Entitic mass] 25.2 pg Low 26. 0 - 34.0 pg [facility] MCHC (RBC) [Mass/Vol] 29.1 g/dL Low 32.0 - 36.0 g/dL [facility] MCV (RBC) [Entitic vol] 86 fL 80 - 100 fL [facility] Monocytes (Bld) [#/Vol] 1.21 10*3/uL High [facility] Monocytes/100 WBC (Bld) 10.6 % 2.0 - 10.0 % [facility] Neutrophils (Bld) [#/Vol] 7.04 10*3/uL [facility] Neutrophils/100 WBC (Bld) 62 % 40.0 - 80.0 % [facility] Nucleated RBC/100 WBC (Bld) [Ratio] 0 % [facility] Platelets (Bld) [#/Vol] 699 10*3/uL High [facility] RBC (Bld) [#/Vol] 3.22 10*6/uL Low [facility] WBC (Bld) [#/Vol] 11.4 10*3/uL [place] [facility] [place] W Auto Differential pane l (Bld)on 12-13-2024 Basophils (Bld) [#/Vol] 0.05 10*3/uL [facility] Basophils/100 WBC (Bld) 0.5 % 0.0 - 2.0 % [facility] Eosinophils (Bld) [#/Vol] 0.11 10*3/uL [facility] Eosinophils/100 WBC (Bld) 1 % 0.0 - 6.0 % [facility] Erythrocyte distribution width (RBC) [Ratio] 16.8 % High 11.5 - 14.5 % [facility] Hematocrit (Bld) [Volume fraction] 25.4 % Low 41.0 - 52.0 % [facility] Hemoglobin (Bld) [Mass/Vol] 7.6 g/dL Low 13.5 - 17.5 g/dL [facility] Immature granulocytes (Bld) [#/Vol] 0.05 10*3/uL [facility] Immature granulocytes/100 WBC (Bld) 0.5 % 0.0 - 0.9 % [facility] Interpretation and review of laboratory results Abnormal [facility] Lymphocytes (Bld) [#/Vol] 1.74 10*3/uL [facility] Lymphocytes/100 WBC (Bld) 15.7 % 13.0 - 44.0 % [facility] MCH (RBC) [Entitic mass] 25.2 pg Low 26. 0 - 34.0 pg [facility] MCHC (RBC) [Mass/Vol] 29.9 g/dL Low 32.0 - 36.0 g/dL [facility] MCV (RBC) [Entitic vol] 84 fL 80 - 100 fL [facility] Monocytes (Bld) [#/Vol] 1.2 10*3/uL High [facility] Monocytes/100 WBC (Bld) 10.8 % 2.0 - 10.0 % [facility] Neutrophils (Bld) [#/Vol] 7.92 10*3/uL High [facility] Neutrophils/100 WBC (Bld) 71.5 % 40.0 - 80.0 % [facility] Nucleated RBC/100 WBC (Bld) [Ratio] 0 % [facility] Platelets (Bld) [#/Vol] 663 10*3/uL High [facility] RBC (Bld) [#/Vol] 3.01 10*6/uL Low [facility] WBC (Bld) [#/Vol] 11.1 10*3/uL [facility] Magnesiumon 12-13-2024 Magnesium [Mass/Vol] 1.97 mg/dL 1.60 - 2.40 mg/dL [facility] Magnesium [Mass/Vol]on 12-13 Interpretation and review of laboratory results Normal [facility] No Panel Informationon 12-13 [facility] Renal function 2000 panelon 12-13-2024 Albumin BCP dye [Mass/Vol] 3.1 g/dL Low 3.4 - 5.0 g/dL [facility] Anion gap [Moles/Vol] 12 mmol/L 10 - 2 0 mmol/L [facility] Calcium [Mass/Vol] 10.1 mg/dL 8.6 - 10. 6 mg/dL [facility] Chloride [Moles/Vol] 102 mmol/L 98 - 10 7 mmol/L [facility] CO2 [Moles/Vol] 29 mmol/L 21 - 32 mmol/L [facility] Creatinine [Mass/Vol] 1.01 mg/dL 0.50 - 1.30 mg/dL [facility] GFR/1.73 sq M.predicted among non-blacks MDRD (S/P/Bld) [Vol rate/Area] 90 mL/min/{1.73_m2} - PINF [facility] Glucose [Mass/Vol] 126 mg/dL High 74 - 99 mg/dL Uni [facility] Interpretation and review of laboratory results Abnormal [facility] Phosphate [Mass/Vol] 2.2 mg/dL Low 2.5 - 4 .9 mg/dL [facility] Potassium [Moles/Vol] 4.1 mmol/L 3.5 - 5.3 mmol/L [facility] Sodium [Moles/Vol] 139 mmol/L 136 - 145 mmol/L [facility] Urea nitrogen [Mass/Vol] 15 mg/dL 6 - 23 mg/d L [facility] CBC W Auto Differential pane l (Bld)on 12-12-2024 Basophils (Bld) [#/Vol] 0.06 10*3/uL [facility] Basophils/100 WBC (Bld) 0.5 % 0.0 - 2.0 % [facility] Eosinophils (Bld) [#/Vol] 0.66 10*3/uL [facility] Eosinophils/100 WBC (Bld) 5.1 % 0.0 - 6.0 % [facility] Erythrocyte distribution width (RBC) [Ratio] 16.7 % High 11.5 - 14.5 % [facility] Hematocrit (Bld) [Volume fraction] 26.5 % Low 41.0 - 52.0 % [facility] Hemoglobin (Bld) [Mass/Vol] 8.1 g/dL Low 13.5 - 17.5 g/dL [facility] Immature granulocytes (Bld) [#/Vol] 0.05 10*3/uL [facility] Immature granulocytes/100 WBC (Bld) 0.4 % 0.0 - 0.9 % [facility] Interpretation and review of laboratory results Abnormal [facility] Lymphocytes (Bld) [#/Vol] 1.86 10*3/uL [facility] Lymphocytes/100 WBC (Bld) 14.4 % 13.0 - 44.0 % [facility] MCH (RBC) [Entitic mass] 26 pg 26. 0 - 34.0 pg [facility] MCHC (RBC) [Mass/Vol] 30.6 g/dL Low 32.0 - 36.0 g/dL [facility] MCV (RBC) [Entitic vol] 85 fL 80 - 100 fL [facility] Monocytes (Bld) [#/Vol] 1.35 10*3/uL High [facility] Monocytes/100 WBC (Bld) 10.4 % 2.0 - 10.0 % [facility] Neutrophils (Bld) [#/Vol] 8.98 10*3/uL High [facility] Neutrophils/100 WBC (Bld) 69.2 % 40.0 - 80.0 % [facility] Nucleated RBC/100 WBC (Bld) [Ratio] 0 % [facility] Platelets (Bld) [#/Vol] 630 10*3/uL High [facility] RBC (Bld) [#/Vol] 3.11 10*6/uL Low [facility] WBC (Bld) [#/Vol] 13 10*3/uL [facility] ECG 12-LEADon 12-12-2024 ECG 12-LEAD Ventricular Rate 72 Atrial Rate 72 P-R Interval 154 QRS Duration 92 Q-T Interval 382 QTC Calculation(Bazett) 418 P [place] 58 R [place] 55 T [place] 43 QRS Count 12 Q Onset 218 [...] 2.9 g/dL Low 3.4 - 5.0 g/dL [facility] ALP [Catalytic activity/Vol] 56 U/L 33 - 120 U/L [facility] ALT With P-5'-P [Catalytic activity/Vol] 7 U/L Low 10 - 52 U/L [facility] AST With P-5'-P [Catalytic activity/Vol] 6 U/L Low 9 - 39 U/L [facility] Bilirubin [Mass/Vol] 0.2 mg/dL 0.0 - 1 .2 mg/dL [facility] Bilirubin.direct [Mass/Vol] 0.1 mg/dL 0.0 - 0.3 mg/dL [facility] Interpretation and review of laboratory results Abnormal [facility] Protein [Mass/Vol] 6.9 g/dL 6.4 - 8.2 g/dL [facility] MR Thigh - left WO and W con trast Mp 12-12-2024 MMODAL [facility] Work Phone: [facility] Work Phone: Radiology Study observation (narrative) [facility] Work Phone: MR Thigh - left WO contrasto n 12-12-2024 [facility] MM[facility]AL [facility] MM[facility]AL [facility] Work Phone: MR Thigh - left WO contrastO rdered By: Kong Armijo on 12-12-2024 [facility] Work Phone: Magnesiumon 12-12-2024 Magnesium [Mass/Vol] 2.01 mg/dL 1.60 - 2.40 mg/dL [facility] Magnesium [Mass/Vol]on 12-12 Interpretation and review of laboratory results Normal [facility] No Panel Informationon 12-12 [facility] Renal function 2000 panelon 12-12-2024 Albumin BCP dye [Mass/Vol] 3 g/dL Low 3.4 - 5.0 g/dL [facility] Anion gap [Moles/Vol] 11 mmol/L 10 - 2 0 mmol/L [facility] Calcium [Mass/Vol] 11.1 mg/dL High 8.6 - 10. 6 mg/dL [facility] Chloride [Moles/Vol] 103 mmol/L 98 - 10 7 mmol/L [facility] CO2 [Moles/Vol] 30 mmol/L 21 - 32 mmol/L [facility] Creatinine [Mass/Vol] 1.15 mg/dL 0.50 - 1.30 mg/dL [facility] GFR/1.73 sq M.predicted among non-blacks MDRD (S/P/Bld) [Vol rate/Area] 77 mL/min/{1.73_m2} - PINF [facility] Glucose [Mass/Vol] 102 mg/dL High 74 - 99 mg/dL [facility] Interpretation and review of laboratory results Abnormal [facility] Phosphate [Mass/Vol] 2.9 mg/dL 2.5 - 4 .9 mg/dL [facility] Potassium [Moles/Vol] 4.7 mmol/L 3.5 - 5.3 mmol/L [facility] Sodium [Moles/Vol] 139 mmol/L 136 - 145 mmol/L [facility] Urea nitrogen [Mass/Vol] 14 mg/dL 6 - 23 mg/d L [facility] Bacteria identified Cx Nom ( Bld)on 12-11-2024 Interpretation and review of laboratory results Normal [facility] CBC W Auto Differential pane l (Bld)on 12-11-2024 Basophils (Bld) [#/Vol] 0.06 10*3/uL [facility] Basophils/100 WBC (Bld) 0.5 % 0.0 - 2.0 % [facility] Eosinophils (Bld) [#/Vol] 0.43 10*3/uL [facility] Eosinophils/100 WBC (Bld) 3.7 % 0.0 - 6.0 % [facility] Erythrocyte distribution width (RBC) [Ratio] 16.7 % High 11.5 - 14.5 % [facility] Hematocrit (Bld) [Volume fraction] 27.1 % Low 41.0 - 52.0 % [facility] Hemoglobin (Bld) [Mass/Vol] 8.1 g/dL Low 13.5 - 17.5 g/dL [facility] Immature granulocytes (Bld) [#/Vol] 0.05 10*3/uL [facility] Immature granulocytes/100 WBC (Bld) 0.4 % 0.0 - 0.9 % [facility] Interpretation and review of laboratory results Abnormal [facility] Lymphocytes (Bld) [#/Vol] 1.57 10*3/uL [facility] Lymphocytes/100 WBC (Bld) 13.6 % 13.0 - 44.0 % [facility] MCH (RBC) [Entitic mass] 25.5 pg Low 26. 0 - 34.0 pg [facility] MCHC (RBC) [Mass/Vol] 29.9 g/dL Low 32.0 - 36.0 g/dL [facility] MCV (RBC) [Entitic vol] 85 fL 80 - 100 fL [facility] Monocytes (Bld) [#/Vol] 1.8 10*3/uL High [facility] Monocytes/100 WBC (Bld) 15.6 % 2.0 - 10.0 % [facility] Neutrophils (Bld) [#/Vol] 7.64 10*3/uL [facility] Neutrophils/100 WBC (Bld) 66.2 % 40.0 - 80.0 % [facility] Nucleated RBC/100 WBC (Bld) [Ratio] 0 % [facility] Platelets (Bld) [#/Vol] 649 10*3/uL High [facility] RBC (Bld) [#/Vol] 3.18 10*6/uL Low Unive [facility] WBC (Bld) [#/Vol] 11.6 10*3/uL [facility] - Microbiology an d Antimicrobial susceptibilityon 12-11-2024 Bacteria identified Cx Nom (Bld) No growth at 4 days - FINAL REPORT [facility] Magnesiumon 12-11-2024 Magnesium [Mass/Vol] 1.96 mg/dL 1.60 - 2.40 mg/dL [facility] Magnesium [Mass/Vol]on 12-11 Interpretation and review of laboratory results Normal [facility] No Panel Informationon 12-11 [facility] Renal function 2000 panelon 12-11-2024 Albumin BCP dye [Mass/Vol] 2.9 g/dL Low 3.4 - 5.0 g/dL [facility] Anion gap [Moles/Vol] 9 mmol/L Low 10 - 2 0 mmol/L [facility] Calcium [Mass/Vol] 10.4 mg/dL 8.6 - 10. 6 mg/dL [facility] Chloride [Moles/Vol] 101 mmol/L 98 - 10 7 mmol/L [facility] CO2 [Moles/Vol] 29 mmol/L 21 - 32 mmol/L [facility] Creatinine [Mass/Vol] 1.34 mg/dL High 0.50 - 1.30 mg/dL [facility] GFR/1.73 sq M.predicted among non-blacks MDRD (S/P/Bld) [Vol rate/Area] 64 mL/min/{1.73_m2} - PINF [facility] Glucose [Mass/Vol] 99 mg/dL 74 - 99 mg/dL [facility] Interpretation and review of laboratory results Abnormal [facility] Phosphate [Mass/Vol] 3 mg/dL 2.5 - 4 .9 mg/dL [facility] Potassium [Moles/Vol] 4.3 mmol/L 3.5 - 5.3 mmol/L [facility] Sodium [Moles/Vol] 135 mmol/L Low 136 - 145 mmol/L [facility] Urea nitrogen [Mass/Vol] 13 mg/dL 6 - 23 mg/d L [facility] CBC W Auto Differential pane l (Bld)on 12-10-2024 Basophils (Bld) [#/Vol] 0.07 10*3/uL [facility] Basophils/100 WBC (Bld) 0.6 % 0.0 - 2.0 % [facility] Eosinophils (Bld) [#/Vol] 0.52 10*3/uL [facility] Eosinophils/100 WBC (Bld) 4.5 % 0.0 - 6.0 % [facility] Erythrocyte distribution width (RBC) [Ratio] 16.8 % High 11.5 - 14.5 % [facility] Hematocrit (Bld) [Volume fraction] 26.7 % Low 41.0 - 52.0 % [facility] Hemoglobin (Bld) [Mass/Vol] 8.1 g/dL Low 13.5 - 17.5 g/dL [facility] Immature granulocytes (Bld) [#/Vol] 0.04 10*3/uL [facility] Immature granulocytes/100 WBC (Bld) 0.3 % 0.0 - 0.9 % [facility] Interpretation and review of laboratory results Abnormal [facility] Lymphocytes (Bld) [#/Vol] 1.84 10*3/uL [facility] Lymphocytes/100 WBC (Bld) 16.1 % 13.0 - 44.0 % [facility] MCH (RBC) [Entitic mass] 25.8 pg Low 26. 0 - 34.0 pg [facility] MCHC (RBC) [Mass/Vol] 30.3 g/dL Low 32.0 - 36.0 g/dL [facility] MCV (RBC) [Entitic vol] 85 fL 80 - 100 fL [facility] Monocytes (Bld) [#/Vol] 1.42 10*3/uL High [facility] Monocytes/100 WBC (Bld) 12.4 % 2.0 - 10.0 % [facility] Neutrophils (Bld) [#/Vol] 7.57 10*3/uL [facility] Neutrophils/100 WBC (Bld) 66.1 % 40.0 - 80.0 % [facility] Nucleated RBC/100 WBC (Bld) [Ratio] 0 % [facility] Platelets (Bld) [#/Vol] 663 10*3/uL High [facility] RBC (Bld) [#/Vol] 3.14 10*6/uL Low [facility] WBC (Bld) [#/Vol] 11.5 10*3/uL [place] [facility] [place] - left WO contrasto n 03-25-2025 Radiology Study observation (narrative) [facility] Work Phone: Magnesiumon 12-10-2024 Magnesium [Mass/Vol] 1.9 mg/dL 1.60 - 2.40 mg/dL [facility] No Panel Informationon 12-10 Interpretation and review of laboratory results Normal [facility] Renal function 2000 panelon 12-10-2024 Albumin BCP dye [Mass/Vol] 3 g/dL Low 3.4 - 5.0 g/dL [facility] Anion gap [Moles/Vol] 12 mmol/L 10 - 2 0 mmol/L [facility] Calcium [Mass/Vol] 10.1 mg/dL 8.6 - 10. 6 mg/dL [facility] Chloride [Moles/Vol] 102 mmol/L 98 - 10 7 mmol/L [facility] CO2 [Moles/Vol] 29 mmol/L 21 - 32 mmol/L [facility] Creatinine [Mass/Vol] 1.28 mg/dL 0.50 - 1.30 mg/dL [facility] GFR/1.73 sq M.predicted among non-blacks MDRD (S/P/Bld) [Vol rate/Area] 68 mL/min/{1.73_m2} - PINF [facility] Glucose [Mass/Vol] 89 mg/dL 74 - 99 mg/dL Uni [facility] Interpretation and review of laboratory results Abnormal [facility] Phosphate [Mass/Vol] 3.5 mg/dL 2.5 - 4 .9 mg/dL [facility] Potassium [Moles/Vol] 4.1 mmol/L 3.5 - 5.3 mmol/L [facility] Sodium [Moles/Vol] 139 mmol/L 136 - 145 mmol/L [facility] Urea nitrogen [Mass/Vol] 11 mg/dL 6 - 23 mg/d L [facility] Vancomycinon 12-10-2024 Vancomycin [Mass/Vol] 10.1 ug/mL 5.0 - 20.0 ug/mL [facility] Vancomycin [Mass/Vol]on 11-17 [facility] Bacteria identified Cx Nom ( Unsp spec)Ordered By: Mari Monique on 12-09-2024 Interpretation and review of laboratory results Abnormal [facility] Microscopic observation Gram stain Nom (Unsp spec) (2+) Few Polymorphonuclear leukocytes Abnormal [facility] Microscopic observation Gram stain Nom (Unsp spec) Positive Abnormal [facility] Blood type and Indirect anti body screen panel (Bld)on 12-09-2024 ABO group Nom (Bld) A [facility] antibody screen Ql Negative [facility] D Ag Ql (Bld) Positive [facility] CBC W Auto Differential pane l (Bld)on 12-09-2024 Basophils (Bld) [#/Vol] 0.06 10*3/uL [facility] Basophils/100 WBC (Bld) 0.6 % 0.0 - 2.0 % [facility] Eosinophils (Bld) [#/Vol] 0.49 10*3/uL [facility] Eosinophils/100 WBC (Bld) 4.8 % 0.0 - 6.0 % [facility] Erythrocyte distribution width (RBC) [Ratio] 16.4 % High 11.5 - 14.5 % [facility] Hematocrit (Bld) [Volume fraction] 25.6 % Low 41.0 - 52.0 % [facility] Hemoglobin (Bld) [Mass/Vol] 8.3 g/dL Low 13.5 - 17.5 g/dL [facility] Immature granulocytes (Bld) [#/Vol] 0.16 10*3/uL [facility] Immature granulocytes/100 WBC (Bld) 1.6 % High 0.0 - 0.9 % [facility] Interpretation and review of laboratory results Abnormal [facility] Lymphocytes (Bld) [#/Vol] 1.81 10*3/uL [facility] Lymphocytes/100 WBC (Bld) 17.8 % 13.0 - 44.0 % [facility] MCH (RBC) [Entitic mass] 26.2 pg 26. 0 - 34.0 pg [facility] MCHC (RBC) [Mass/Vol] 32.4 g/dL 32.0 - 36.0 g/dL [facility] MCV (RBC) [Entitic vol] 81 fL 80 - 100 fL [facility] Monocytes (Bld) [#/Vol] 1.04 10*3/uL High [facility] Monocytes/100 WBC (Bld) 10.2 % 2.0 - 10.0 % [facility] Neutrophils (Bld) [#/Vol] 6.63 10*3/uL [facility] Neutrophils/100 WBC (Bld) 65 % 40.0 - 80.0 % [facility] Nucleated RBC/100 WBC (Bld) [Ratio] 0 % [facility] Platelets (Bld) [#/Vol] 650 10*3/uL High [facility] RBC (Bld) [#/Vol] 3.17 10*6/uL Low Unive [facility] WBC (Bld) [#/Vol] 10.2 10*3/uL [facility] Magnesiumon 12-09-2024 Magnesium [Mass/Vol] 1.9 mg/dL 1.60 - 2.40 mg/dL [facility] Magnesium [Mass/Vol]on 12-09 Interpretation and review of laboratory results Normal [facility] No Panel Informationon 12-09 [facility] PT and aPTT panel Coag (PPP) on 12-09-2024 aPTT Coag (PPP) [Time] 26 [facility] (PPP) [Relative time] 1.3 {INR} High 0.9 - 1.1 [facility] Interpretation and review of laboratory results Abnormal [facility] PT Coag (PPP) [Time] 14.3 s [facility] Renal function 2000 panelon 12-09-2024 Albumin BCP dye [Mass/Vol] 3.1 g/dL Low 3.4 - 5.0 g/dL [facility] Anion gap [Moles/Vol] 15 mmol/L 10 - 2 0 mmol/L [facility] Calcium [Mass/Vol] 9.8 mg/dL 8.6 - 10. 6 mg/dL [facility] Chloride [Moles/Vol] 104 mmol/L 98 - 10 7 mmol/L [facility] CO2 [Moles/Vol] 25 mmol/L 21 - 32 mmol/L [facility] Creatinine [Mass/Vol] 1.2 mg/dL 0.50 - 1.30 mg/dL [facility] GFR/1.73 sq M.predicted among non-blacks MDRD (S/P/Bld) [Vol rate/Area] 73 mL/min/{1.73_m2} - PINF [facility] Glucose [Mass/Vol] 92 mg/dL 74 - 99 mg/[facility] Interpretation and review of laboratory results Abnormal [facility] Phosphate [Mass/Vol] 3.4 mg/dL 2.5 - 4 .9 mg/dL [facility] Potassium [Moles/Vol] 3.6 mmol/L 3.5 - 5.3 mmol/L [facility] Sodium [Moles/Vol] 140 mmol/L 136 - 145 mmol/L [facility] Urea nitrogen [Mass/Vol] 15 mg/dL 6 - 23 mg/d L [facility] Tissue/Wound Culture/SmearOr dered By: Mari Monique on 12-09-2024 Bacteria identified Cx Nom (Unsp spec) (4+) Abundant Mixed Gram-Positive and Gram-Negative Bacteria [facility] CBC W Auto Differential pane l (Bld)on 12-08-2024 Basophils (Bld) [#/Vol] 0.05 10*3/uL [facility] Basophils/100 WBC (Bld) 0.4 % 0.0 - 2.0 % [facility] Eosinophils (Bld) [#/Vol] 0.55 10*3/uL [facility] Eosinophils/100 WBC (Bld) 4.8 % 0.0 - 6.0 % [facility] Erythrocyte distribution width (RBC) [Ratio] 17 % High 11.5 - 14.5 % [facility] Hematocrit (Bld) [Volume fraction] 26.1 % Low 41.0 - 52.0 % [facility] Hemoglobin (Bld) [Mass/Vol] 7.8 g/dL Low 13.5 - 17.5 g/dL [facility] Immature granulocytes (Bld) [#/Vol] 0.05 10*3/uL [facility] Immature granulocytes/100 WBC (Bld) 0.4 % 0.0 - 0.9 % [facility] Interpretation and review of laboratory results Abnormal [facility] Lymphocytes (Bld) [#/Vol] 1.34 10*3/uL [facility] Lymphocytes/100 WBC (Bld) 11.7 % 13.0 - 44.0 % [facility] MCH (RBC) [Entitic mass] 25.3 pg Low 26. 0 - 34.0 pg [facility] MCHC (RBC) [Mass/Vol] 29.9 g/dL Low 32.0 - 36.0 g/dL [facility] MCV (RBC) [Entitic vol] 85 fL 80 - 100 fL [facility] Monocytes (Bld) [#/Vol] 1.36 10*3/uL High [facility] Monocytes/100 WBC (Bld) 11.9 % 2.0 - 10.0 % [facility] Neutrophils (Bld) [#/Vol] 8.1 10*3/uL High [facility] Neutrophils/100 WBC (Bld) 70.8 % 40.0 - 80.0 % [facility] Nucleated RBC/100 WBC (Bld) [Ratio] 0 % [facility] Platelets (Bld) [#/Vol] 595 10*3/uL High [facility] RBC (Bld) [#/Vol] 3.08 10*6/uL Low Unive [facility] WBC (Bld) [#/Vol] 11.5 10*3/uL [facility] Comprehensive metabolic 2000 panelon 12-08-2024 Albumin BCP dye [Mass/Vol] 2.9 g/dL Low 3.4 - 5.0 g/dL [facility] ALP [Catalytic activity/Vol] 48 U/L 33 - 120 U/L [facility] ALT With P-5'-P [Catalytic activity/Vol] 6 U/L Low 10 - 52 U/L [facility] Anion gap [Moles/Vol] 12 mmol/L 10 - 2 0 mmol/L [facility] AST With P-5'-P [Catalytic activity/Vol] 6 U/L Low 9 - 39 U/L [facility] Bilirubin [Mass/Vol] 0.3 mg/dL 0.0 - 1 .2 mg/dL [facility] Calcium [Mass/Vol] 9.4 mg/dL 8.6 - 10. 6 mg/dL [facility] Chloride [Moles/Vol] 106 mmol/L 98 - 10 7 mmol/L [facility] CO2 [Moles/Vol] 26 mmol/L 21 - 32 mmol/L [facility] Creatinine [Mass/Vol] 1.33 mg/dL High 0.50 - 1.30 mg/dL [facility] GFR/1.73 sq M.predicted among non-blacks MDRD (S/P/Bld) [Vol rate/Area] 65 mL/min/{1.73_m2} - PINF [facility] Glucose [Mass/Vol] 112 mg/dL High 74 - 99 mg/dL [facility] Interpretation and review of laboratory results Abnormal [facility] Potassium [Moles/Vol] 3.8 mmol/L 3.5 - 5.3 mmol/L [facility] Protein [Mass/Vol] 6.5 g/dL 6.4 - 8.2 g/dL [facility] Sodium [Moles/Vol] 140 mmol/L 136 - 145 mmol/L [facility] Urea nitrogen [Mass/Vol] 17 mg/dL 6 - 23 mg/d L [facility] No Panel Informationon 12-08 [facility] Vancomycinon 12-08-2024 Vancomycin [Mass/Vol] 16.6 ug/mL 5.0 - 20.0 ug/mL [facility] Vancomycin [Mass/Vol]on 11-17 Interpretation and review of laboratory results Normal [facility] C-reactive proteinon 025 CRP [Mass/Vol] 10.84 mg/dL High NINF - 1.00 mg/dL [facility] CBC W Auto Differential pane l (Bld)on 12-07-2024 Basophils (Bld) [#/Vol] 0 10*3/uL 0.0 - 0.2 10*3/uL [facility] Basophils/100 WBC (Bld) 0.3 % 0.0 - 2.0 % [facility] Eosinophils (Bld) [#/Vol] 0.4 10*3/uL 0.0 - 0.5 10*3/uL [facility] Eosinophils/100 WBC (Bld) 3.3 % 0.0 - 6.0 % [facility] Erythrocyte distribution width (RBC) [Ratio] 16.6 % High 11.5 - 15.0 % [facility] Hematocrit (Bld) [Volume fraction] 26.4 % Low 40.0 - 52.0 % [facility] Hemoglobin (Bld) [Mass/Vol] 8.4 g/dL Low 13.0 - 18.0 g/dL [facility] Immature granulocytes (Bld) [#/Vol] 0 10*3/uL NINF - 0.1 10*3/uL [facility] Immature granulocytes/100 WBC (Bld) 0.3 % 0.0 - 2.0 % [facility] Interpretation and review of laboratory results Abnormal [facility] Lymphocytes (Bld) [#/Vol] 1.7 10*3/uL 1.0 - 4.3 10*3/uL [facility] Lymphocytes/100 WBC (Bld) 13.9 % Low 15.0 - 45.0 % [facility] MCH (RBC) [Entitic mass] 25.7 pg Low 26. 0 - 34.0 pg [facility] MCHC (RBC) [Mass/Vol] 31.8 % 30.5 - 36.0 % [facility] MCV (RBC) [Entitic vol] 80.7 fL 77.0 - 99.[address] [facility] Monocytes (Bld) [#/Vol] 1.4 10*3/uL High 0.0 - 0.9 10*3/uL [facility] Monocytes/100 WBC (Bld) 11.3 % 5.0 - 13.0 % [facility] Neutrophils (Bld) [#/Vol] 8.5 10*3/uL High 1.8 - 7.5 10*3/uL [facility] Neutrophils/100 WBC (Bld) 70.9 % 38.0 - 82.0 % [facility] Nucleated RBC/100 WBC (Bld) [Ratio] 0 % [facility] Platelet mean volume (Bld) [Entitic vol] 8.5 fL Low 9.0 - 12.7 fL [facility] Platelets (Bld) [#/Vol] 609 10*3/uL High 140 - 440 10*3/uL [facility] RBC (Bld) [#/Vol] 3.27 10*6/uL Low 4.40 - 5.9 0 10*6/uL [facility] WBC (Bld) [#/Vol] 12 10*3/uL High 3.6 - 10.7 10*3/uL [facility] CBC WITH AUTO DIFFERENTIALon 12-07-2024 Basophils (Bld) [#/Vol] 0.0 10*3/uL Normal 0.0-0.2 [facility] Comment on above: Performed By: #### L [id number] ####Librarian: JAZLYN JIMENEZ ([id number])[facility])[address] [place] [address] Basophils/100 WBC (Bld) 0.3 % Normal 0.0-2.0 [facility] Comment on above: Performed By: #### L [id number] ####Librarian: JAZLYN JIMENEZ ([id number])[facility])[address] [place] [address] Eosinophils (Bld) [#/Vol] 0.4 10*3/uL Normal 0.0-0.5 [facility] Comment on above: Performed By: #### L [id number] ####Librarian: JAZLYN JIMENEZ ([id number])[facility])[address] [place] [address] Eosinophils/100 WBC (Bld) 3.3 % Normal 0.0-6.0 [facility] Comment on above: Performed By: #### L [id number] ####Librarian: JAZLYN JIMENEZ ([id number])[facility])[address] [place] [address] Erythrocyte distribution width (RBC) [Ratio] 16.6 % High 11.5-15.0 [facility] Comment on above: Performed By: #### L [id number] ####Librarian: JAZLYN JIMENEZ ([id number])[facility])[address] [place] [address] Hematocrit (Bld) [Volume fraction] 26.4 % Low 40.0-52.0 [facility] Comment on above: Performed By: #### L [id number] ####Librarian: JAZLYN JIMENEZ ([id number])[facility])[address] [place] [address] Hemoglobin (Bld) [Mass/Vol] 8.4 g/dL Low 13.0-18.0 [facility] Comment on above: Performed By: #### L [id number] ####Librarian: JAZLYN JIMENEZ ([id number])[facility])[address] [place] [address] IMMATURE GRANS % 0.3 % Normal 0.0-2.0 [facility] Comment on above: Performed By: #### L [id number] ####Librarian: JAZLYN JIMENEZ ([id number])[facility])[address] [place] [address] IMMATURE GRANS ABSOLUTE 0.0 10*3/uL Normal <0.1 [facility] Comment on above: Performed By: #### L [id number] ####Librarian: JAZLYN JIMENEZ ([id number])[facility])[address] [place] [address] Lymphocytes (Bld) [#/Vol] 1.7 10*3/uL Normal 1.0-4.3 [facility] Comment on above: Performed By: #### L [id number] ####Librarian: JAZLYN JIMENEZ ([id number])[facility])[address] [place] [address] Lymphocytes/100 WBC (Bld) 13.9 % Low 15.0-45.0 [facility] Comment on above: Performed By: #### L [id number] ####Librarian: JAZLYN JIMENEZ ([id number])[facility])[address] [place] [address] MCH (RBC) [Entitic mass] 25.7 pg Low 26.0-34.0 [facility] Comment on above: Performed By: #### L [id number] ####Librarian: JAZLYN JIMENEZ ([id number])[facility])[address] [place] [address] MCHC 31.8 % Normal 30.5-36.0 [facility] Comment on above: Performed By: #### L [id number] ####Librarian: JAZLYN JIMENEZ ([id number])[facility] ([facility])[address] [place] [address] MCV (RBC) [Entitic vol] 80.7 fL Normal 77.0-99.0 [facility] Comment on above: Performed By: #### L [id number] ####Librarian: JAZLYN JIMENEZ ([id number])[facility] ([facility])[address] [place] [address] Monocytes (Bld) [#/Vol] 1.4 10*3/uL High 0.0-0.9 [facility] Comment on above: Performed By: #### L [id number] ####Librarian: JAZLYN JIMENEZ ([id number])[facility] ([facility])[address] [place] [address] Monocytes/100 WBC (Bld) 11.3 % Normal 5.0-13.0 [facility] Comment on above: Performed By: #### L [id number] ####Librarian: JAZLYN JIMENEZ ([id number])[facility] ([facility])[address] [place] [address] NEUTROPHILS ABSOLUTE 8.5 10*3/uL High 1.8-7.5 [facility] Comment on above: Performed By: #### L [id number] ####Librarian: JAZLYN JIMENEZ ([id number])[facility])[address] [place] [address] Neutrophils/100 WBC (Bld) 70.9 % Normal 38.0-82.0 [facility] Comment on above: Performed By: #### L [id number] ####Librarian: JAZLYN JIMENEZ ([id number])[facility])[address] [place] [address] NRBC 0.0 /100 WBCs Normal 0.0-2.0 [facility] Comment on above: Performed By: #### L [id number] ####Librarian: JAZLYN JIMENEZ ([id number])[facility])[address] [place] [address] Platelet mean volume (Bld) [Entitic vol] 8.5 fL Low 9.0-12.7 [facility] Comment on above: Performed By: #### L [id number] ####Librarian: JAZLYN JIMENEZ ([id number])[facility])[address] [place] [address] Platelets (Bld) [#/Vol] 609 10*3/uL High 140-440 [facility] Comment on above: Performed By: #### L [id number] ####Librarian: JAZLYN JIMENEZ ([id number])[facility])[address] [place] [address] RBC (Bld) [#/Vol] 3.27 10*6/uL Low 4.40-5.90 [facility] Comment on above: Performed By: #### L [id number] ####Librarian: JAZLYN JIMENEZ ([id number])[facility])[address] [place] [address] WBC (Bld) [#/Vol] 12.0 10*3/uL High 3.6-10.7 [facility] Comment on above: Performed By: #### L [id number] ####Librarian: JAZLYN JIMENEZ ([id number])[facility])[address] [place] [address] CBC panel Auto (Bld)on 12-07 Erythrocyte distribution width (RBC) [Ratio] 16.8 % High 11.5 - 14.5 % [facility] Hematocrit (Bld) [Volume fraction] 26.5 % Low 41.0 - 52.0 % [facility] Hemoglobin (Bld) [Mass/Vol] 8 g/dL Low 13.5 - 17.5 g/dL [facility] Interpretation and review of laboratory results Abnormal [facility] MCH (RBC) [Entitic mass] 25.4 pg Low 26. 0 - 34.0 pg [facility] MCHC (RBC) [Mass/Vol] 30.2 g/dL Low 32.0 - 36.0 g/dL [facility] MCV (RBC) [Entitic vol] 84 fL 80 - 100 fL [facility] Nucleated RBC/100 WBC (Bld) [Ratio] 0 % [facility] Platelets (Bld) [#/Vol] 645 10*3/uL High [facility] RBC (Bld) [#/Vol] 3.15 10*6/uL Low [facility] WBC (Bld) [#/Vol] 12 10*3/uL High [facility] COMPREHENSIVE METABOLIC PANE Yuriy 12-07-2024 Albumin [Mass/Vol] 2.5 g/dL Low 3.5-5.0 [facility] Comment on above: Performed By: #### L [id number], [id number], LAB17 ####Librarian: JAZLYN JIMENEZ ([id number])[address] ALP [Catalytic activity/Vol] 57 U/L Normal 40-150 [facility] Comment on above: Performed By: #### L [id number], [id number], LAB17 ####Librarian: JAZLYN JIMENEZ ([id number])[address] ALT [Catalytic activity/Vol] U/L Normal <40 [facility] Comment on above: Performed By: #### L [id number], [id number], LAB17 ####Librarian: JAZLYN JIMENEZ ([id number])[facility])[address] [place] [address] Anion gap [Moles/Vol] 7 mmol/L Normal 3-13 [facility] Comment on above: Performed By: #### Kamila [id number], [id number], LAB17 ####Librarian: JAZLYN JIMENEZ ([id number])[facility])[address] [place] [address] AST [Catalytic activity/Vol] 10 U/L Normal <34 [facility] Comment on above: Performed By: #### Kamila [id number], [id number], LAB17 ####Librarian: JAZYLN JIMENEZ ([id number])[facility] ([facility])[address] [place] [address] Bilirubin [Mass/Vol] 0.3 mg/dL Normal <1.2 [facility] Comment on above: Performed By: #### Kamila ABRanda, [id number], LAB17 ####Librarian: JAZLYN JIMENEZ ([id number])[facility])[address] [place] [address] Calcium [Mass/Vol] 9.4 mg/dL Normal 8.4-10.2 [facility] Comment on above: Performed By: #### Kamila LOUISE, [id number], LAB17 ####Librarian: JAZLYN JIMENEZ ([id number])[facility])[address] [place] [address] Chloride [Moles/Vol] 113 mmol/L High 98-107 [facility] Comment on above: Performed By: #### Kamila ABRanda, [id number], LAB17 ####Librarian: JAZLYN JIMENEZ ([id number])[facility] ([facility])[address] [place] [address] [place] CO2 [Moles/Vol] 21 mmol/L Low 22-29 [facility] Comment on above: Performed By: #### L AB103, [id number], LAB17 ####Librarian: JAZLYN JIMENEZ ([id number])[facility] ([facility])[address] [place] [address] Creatinine [Mass/Vol] 1.17 mg/dL Normal 0.72-1.25 [facility] Comment on above: Performed By: #### Kamila AB103, [id number], LAB17 ####Librarian: JAZLYN JIMENEZ ([id number])[facility])[address] [place] [address] GLOMERULAR FILTRATION RATE ML/MIN/1.73 SQ M.PREDICTED 75.5 mL/min/1.73m*2 Normal >60.0 [facility] Comment on above: Result Comment: Calc ulation based on the Chronic Kidney Disease Epidemiology Collaboration (CKD-EPI) equation refit without adjustment for race Performed By: #### Kamila LOUISE, [id number], LAB17 ####Librarian: JAZLYN JIMENEZ ([id number])[facility])[address] [place] [address] Glucose [Mass/Vol] 96 mg/dL Normal 74-100 [facility] Comment on above: Performed By: #### Kamila LOUISE, [id number], LAB17 ####Librarian: JAZLYN JIMENEZ ([id number])[address] Potassium [Moles/Vol] 3.9 mmol/L Normal 3.5-5.1 [facility] Comment on above: Result Comment: [facility] potassium values may be up to 0.5 mmol/L lower than serum values. Performed By: #### Kamila AB103, [id number], LAB17 ####Librarian: JAZLYN JIMENEZ ([id number])[facility])[address] [place] [address] Protein [Mass/Vol] 6.6 g/dL Normal 6.4-8.3 [facility] Comment on above: Performed By: #### Kamila AB103, [id number], LAB17 ####Librarian: JAZLYN JIMENEZ ([id number])[facility])[address] [place] [address] Sodium [Moles/Vol] 141 mmol/L Normal 136-145 [facility] Comment on above: Performed By: #### Kamila AB103, [id number], LAB17 ####Librarian: JAZLYN JIMENEZ ([id number])[facility] ([facility])[address] [place] [address] Urea nitrogen [Mass/Vol] 14 mg/dL Normal 9- [facility] Comment on above: Performed By: #### L AB103, [id number], LAB17 ####Librarian: JAZLYN JIMENEZ ([id number])[facility] [place] [address] Comprehensive metabolic 1998 panelon 12-07-2024 Albumin [Mass/Vol] 2.5 g/dL Low 3.5 - 5.0 g/dL [facility] ALP [Catalytic activity/Vol] 57 U/L 40 - 150 U/L [facility] ALT [Catalytic activity/Vol] U/L NINF - 40 U/L [facility] Anion gap [Moles/Vol] 7 mmol/L 3 - 13 mmol/L [facility] AST [Catalytic activity/Vol] 10 U/L NINF - 34 U/L [facility] Bilirubin [Mass/Vol] 0.3 mg/dL NINF - 1.2 mg/dL [facility] Calcium [Mass/Vol] 9.4 mg/dL 8.4 - 10. 2 mg/dL [facility] Chloride [Moles/Vol] 113 mmol/L High 98 - 10 7 mmol/L [facility] CO2 [Moles/Vol] 21 mmol/L Low 22 - 29 mmol/L [facility] Creatinine [Mass/Vol] 1.17 mg/dL 0.72 - 1.25 mg/dL [facility] GFR/1.73 sq M.predicted (S/P/Bld) [Vol rate/Area] 75.5 mL/min - PINF [facility] Comment on above: Calculation based on the Chronic Kidney Disease Epidemiology Collaboration (CKD-EPI) equation refit without adjustment for race Glucose [Mass/Vol] 96 mg/dL 74 - 100 mg/dL [facility] Interpretation and review of laboratory results Abnormal [facility] Potassium [Moles/Vol] 3.9 mmol/L 3.5 - 5.1 mmol/L [facility] Comment on above: Plasma potassium jeri ues may be up to 0.5 mmol/L lower than serum values. Protein [Mass/Vol] 6.6 g/dL 6.4 - 8.3 g/dL [facility] Sodium [Moles/Vol] 141 mmol/L 136 - 145 mmol/L [facility] Urea nitrogen [Mass/Vol] 14 mg/dL 9 - 23 mg/d L [facility] Comprehensive metabolic 2000 panelon 12-07-2024 Albumin BCP dye [Mass/Vol] 3.1 g/dL Low 3.4 - 5.0 g/dL [facility] ALP [Catalytic activity/Vol] 53 U/L 33 - 120 U/L [facility] ALT With P-5'-P [Catalytic activity/Vol] 7 U/L Low 10 - 52 U/L [facility] Anion gap [Moles/Vol] 13 mmol/L 10 - 2 0 mmol/L [facility] AST With P-5'-P [Catalytic activity/Vol] 8 U/L Low 9 - 39 U/L [facility] Bilirubin [Mass/Vol] 0.4 mg/dL 0.0 - 1 .2 mg/dL [facility] Calcium [Mass/Vol] 9.6 mg/dL 8.6 - 10. 6 mg/dL [facility] Chloride [Moles/Vol] 109 mmol/L High 98 - 10 7 mmol/L [facility] CO2 [Moles/Vol] 22 mmol/L 21 - 32 mmol/L [facility] Creatinine [Mass/Vol] 1.32 mg/dL High 0.50 - 1.30 mg/dL [facility] GFR/1.73 sq M.predicted among non-blacks MDRD (S/P/Bld) [Vol rate/Area] 65 mL/min/{1.73_m2} - PINF [facility] Glucose [Mass/Vol] 91 mg/dL 74 - 99 [facility] Potassium [Moles/Vol] 3.9 mmol/L 3.5 - 5.3 mmol/L [facility] Protein [Mass/Vol] 6.7 g/dL 6.4 - 8.2 g/dL [facility] Sodium [Moles/Vol] 140 mmol/L 136 - 145 mmol/L [facility] Urea nitrogen [Mass/Vol] 16 mg/dL 6 - 23 mg/d L [facility] Consulton 12-07-2024 Consult Pharmacy Managed Vancomycin Dosing [...] creatinine, and vancomycin levels interfaced automatically to [employer] and data has been analyzed and interpreted. [...] RPh Clinical Pharmacist Available via Secure Chat [facility] ED Nursing Noteon 12-07-2024 ED Nursing Note Report to AMAN Galindo. Normal [facility] ED Nursing Note Patient provided urinal per request. Respirations even and unlabored. No acute distress noted. Normal [facility] ED Nursing Note Report from AMAN Galindo. Normal [facility] ED Nursing Note Report to Josie/AMAN and patient moved to room 9 with all belongings and breakfast tray Normal [facility] ED Nursing Note Patient moving from 43 to 9 now Normal [facility] ED Nursing Note RN/Margarita ordered breakfast for the patient per his preference Normal [facility] ED Nursing Note Requested pharmacy to retime Vanc due to 3 hour administration of Zosyn (& both ordered at same time) Normal [facility] ED Nursing Note Patient actively vomiting - provider notified Normal [facility] ED Nursing Note Report given to AMAN Sutton Normal [facility] ESR Westergren method (Bld) [Velocity]on 12-07-2024 ESR (Bld) [Velocity] 102 mm/h High 0 - 20 mm/h [facility] Interpretation and review of laboratory results Abnormal [facility] - Chemistry and C hemistry - challengeon 12-07-2024 Magnesium [Mass/Vol] 1.8 mg/dL 1.6 - 2 .6 mg/dL [facility] MAGNESIUMon 12-07-2024 Magnesium [Mass/Vol] 1.8 mg/dL Normal 1.6-2.[address] [facility] Comment on above: Result Comment: MAYRA Dhillon COMMENTS: Higher values can be expected in females during menses. Performed By: #### L AB103, [id number], LAB17 ####Librarian: JAZLYN JIMENEZ ([id number])[facility] ([facility])[address] [place] [address] Magnesiumon 12-07-2024 Magnesium [Mass/Vol] 1.86 mg/dL 1.60 - 2.40 mg/dL [facility] Magnesium [Mass/Vol]on 12-07 Interpretation and review of laboratory results [facility] Higher values can be expected in females during menses. [facility] No Panel Informationon 12-07 Interpretation and review of laboratory results Abnormal [facility] Interpretation and review of laboratory results Normal [facility] Nursing Noteon 12-07-2024 Nursing Note [id number] called report to ambulance is here to pick patient up Normal [facility] PHOSPHORUSon 12-07-2024 Phosphate [Mass/Vol] 2.5 mg/dL Normal 2.3-4.[address] [facility] Comment on above: Performed By: #### L [id number], [id number], [id number] ####Librarian: JAZLYN JIMENEZ ([phone])[facility] ([facility])[address] [place] [address] [place] Phosphate [Moles/Vol]on 11-17 Phosphate [Mass/Vol] 2.5 mg/dL 2.3 - 4 .7 mg/dL [facility] Progress Noteon 12-07-2024 Progress Note Physician Response Please review the following and provide your response below. Please clarify which of the following accurately describes the patient's CKD Stage: CKD Stage 2 (GFR 60-89) This documentation will become part of the patient's medical record. [place] [facility] BLOOD CULTUREon 12-06-2024 Bacteria identified Cx Nom (Bld) BLOOD CULTURE Reference No growth at 5 days ORDER COMMENTS: Blood Collection Site: Right Forearm [ S = SUSCEPTIBLE R = RESISTANT I = INTERMEDIATE S-DD = Susceptible-dose dependent NS = Non-susceptible NO = No Interpretation ] Normal [facility] Comment on above: Performed By: #### L [id number], [id number] #### Librarian: JAZLYN JIMENEZ ([id number]) [facility] ([facility]) [address] [place] [address] [place] Bacteria identified Cx Nom (Bld) BLOOD CULTURE Reference No growth at 5 days ORDER COMMENTS: Blood Collection Site: Right Antecubital [ S = SUSCEPTIBLE R = RESISTANT I = INTERMEDIATE S-DD = Susceptible-dose dependent NS = Non-susceptible NO = No Interpretation ] Normal [facility] Comment on above: Performed By: #### L [id number], [id number] #### Librarian: JAZLYN JIMENEZ ([id number]) [facility] [address] [place] [address] [place] C-REACTIVE PROTEINon 03-21-2 025 CRP [Mass/Vol] 95.9 mg/L High <5.0 [facility] Comment on above: Performed By: #### L AB17, [id number] ####Librarian: JAZLYN JIMENEZ ([id number])[facility] ([facility])[address] [place] [address] CBC W Auto Differential pane l (Bld)on 12-06-2024 Basophils (Bld) [#/Vol] 0 10*3/uL 0.0 - 0.2 10*3/uL [facility] Basophils/100 WBC (Bld) 0.3 % 0.0 - 2.0 % [facility] Eosinophils (Bld) [#/Vol] 0.3 10*3/uL 0.0 - 0.5 10*3/uL [facility] Eosinophils/100 WBC (Bld) 2.4 % 0.0 - 6.0 % [facility] [place] Erythrocyte distribution width (RBC) [Ratio] 16.9 % High 11.5 - 15.0 % [facility] [place] Hematocrit (Bld) [Volume fraction] 28.6 % Low 40.0 - 52.0 % [facility] Hemoglobin (Bld) [Mass/Vol] 9 g/dL Low 13.0 - 18.0 g/dL [facility] [place] Immature granulocytes (Bld) [#/Vol] 0 10*3/uL NINF - 0.1 10*3/uL [facility] [place] Immature granulocytes/100 WBC (Bld) 0.3 % 0.0 - 2.0 % [facility] [place] Interpretation and review of laboratory results Abnormal [facility] [place] Lymphocytes (Bld) [#/Vol] 1.5 10*3/uL 1.0 - 4.3 10*3/uL [facility] [place] Lymphocytes/100 WBC (Bld) 11.4 % Low 15.0 - 45.0 % [facility] [place] MCH (RBC) [Entitic mass] 25.7 pg Low 26. 0 - 34.[address] [facility] [place] MCHC (RBC) [Mass/Vol] 31.5 % 30.5 - 36.0 % [facility] [place] MCV (RBC) [Entitic vol] 81.7 fL 77.0 - 99.[address] [facility] [place] Monocytes (Bld) [#/Vol] 1.1 10*3/uL High 0.0 - 0.9 10*3/uL [facility] Monocytes/100 WBC (Bld) 8.6 % 5.0 - 13.0 % [facility] Neutrophils (Bld) [#/Vol] 10 10*3/uL High 1.8 - 7.5 10*3/uL [facility] Neutrophils/100 WBC (Bld) 77 % 38.0 - 82.0 % [facility] Nucleated RBC/100 WBC (Bld) [Ratio] 0 % [facility] Platelet mean volume (Bld) [Entitic vol] 8.8 fL Low 9.0 - 12.7 fL [facility] Platelets (Bld) [#/Vol] 681 10*3/uL High 140 - 440 10*3/uL [facility] RBC (Bld) [#/Vol] 3.5 10*6/uL Low 4.40 - 5.9 0 10*6/uL [facility] WBC (Bld) [#/Vol] 13 10*3/uL High 3.6 - 10.7 10*3/uL [facility] CBC WITH AUTO DIFFERENTIALon 12-06-2024 Basophils (Bld) [#/Vol] 0.0 10*3/uL Normal 0.0-0.2 [facility] Comment on above: Performed By: #### aKmila KELSEY, [id number] ####Librarian: JAZLYN [id number])[facility])[address] [place] [address] Basophils/100 WBC (Bld) 0.3 % Normal 0.0-2.0 [facility] Comment on above: Performed By: #### Kamila DE SOUZA8, [id number] ####Librarian: JAZLYN JIMENEZ ([id number])[facility] ([facility])[address] [place] [address] [place] Eosinophils (Bld) [#/Vol] 0.3 10*3/uL Normal 0.0-0.5 [facility] Comment on above: Performed By: #### Kamila [id number], [id number] ####Librarian: JAZLYN JIMENEZ ([id number])[facility] ([facility])[address] [place] [address] [place] Eosinophils/100 WBC (Bld) 2.4 % Normal 0.0-6.0 [facility] Comment on above: Performed By: #### Kamila [id number], [id number] ####Librarian: JAZLYN JIMENEZ ([phone])[facility])[address] [place] [address] Erythrocyte distribution width (RBC) [Ratio] 16.9 % High 11.5-15.0 [facility] Comment on above: Performed By: #### Kamila [id number], [id number] ####Librarian: JAZLYN JIMENEZ ([phone])[facility])[address] [place] [address] Hematocrit (Bld) [Volume fraction] 28.6 % Low 40.0-52.0 [facility] Comment on above: Performed By: #### Kamila [id number], [id number] ####Librarian: JAZLYN JIMENEZ ([id number])[facility])[address] [place] [address] Hemoglobin (Bld) [Mass/Vol] 9.0 g/dL Low 13.0-18.0 [facility] Comment on above: Performed By: #### Kamila [id number], [id number] ####Librarian: JAZLYN JIMENEZ ([id number])[facility])[address] [place] [address] IMMATURE GRANS % 0.3 % Normal 0.0-2.0 [facility] Comment on above: Performed By: #### L [id number], [id number] ####Librarian: JAZLYN JIMENEZ ([id number])[address] IMMATURE GRANS ABSOLUTE 0.0 10*3/uL Normal <0.1 [facility] Comment on above: Performed By: #### L IZ7236, [id number] ####Librarian: JAZLYN JIMENEZ ([id number])[facility])[address] [place] [address] Lymphocytes (Bld) [#/Vol] 1.5 10*3/uL Normal 1.0-4.3 [facility] Comment on above: Performed By: #### Kamila KELSEY, [id number] ####Librarian: JAZLYN JIMENEZ ([id number])[facility])[address] [place] [address] Lymphocytes/100 WBC (Bld) 11.4 % Low 15.0-45.0 [facility] Comment on above: Performed By: #### Kamila KELSEY, [id number] ####Librarian: JAZLYN JIMENEZ ([id number])[facility])[address] [place] [address] MCH (RBC) [Entitic mass] 25.7 pg Low 26.0-34.0 [facility] Comment on above: Performed By: #### Kamila KELSEY, [id number] ####Librarian: JAZLYN JIMENEZ ([id number])[facility])[address] [place] [address] MCHC 31.5 % Normal 30.5-36.0 [facility] Comment on above: Performed By: #### Kamila KELSEY, [id number] ####Librarian: JAZLYN JIMENEZ ([id number])[facility])[address] [place] [address] MCV (RBC) [Entitic vol] 81.7 fL Normal 77.0-99.0 [facility] Comment on above: Performed By: #### Kamila KELSEY, [id number] ####Librarian: JAZLYN JIMENEZ ([id number])[facility])[address] [place] [address] Monocytes (Bld) [#/Vol] 1.1 10*3/uL High 0.0-0.9 [facility] Comment on above: Performed By: #### Kamila UN4261, [id number] ####Librarian: JAZLYN JIMENEZ ([id number])[facility])[address] [place] [address] Monocytes/100 WBC (Bld) 8.6 % Normal 5.0-13.0 [facility] Comment on above: Performed By: #### Kamila KELSEY, [id number] ####Librarian: JAZLYN JIMENEZ ([id number])[facility] ([facility])[address] [place] [address] NEUTROPHILS ABSOLUTE 10.0 10*3/uL High 1.8-7.5 [facility] Comment on above: Performed By: #### Kamila KELSEY, [id number] ####Librarian: JAZLYN JIMENEZ ([id number])[facility] ([facility])[address] [place] [address] Neutrophils/100 WBC (Bld) 77.0 % Normal 38.0-82.0 [facility] Comment on above: Performed By: #### Kamila KELSEY, [id number] ####Librarian: JAZLYN JIMENEZ ([id number])[facility] ([facility])[address] [place] [address] NRBC 0.0 /100 WBCs Normal 0.0-2.0 [facility] Comment on above: Performed By: #### Kamila KELSEY, [id number] ####Librarian: JAZLYN JIMENEZ ([id number])[facility] ([facility])[address] [place] [address] Platelet mean volume (Bld) [Entitic vol] 8.8 fL Low 9.0-12.7 [facility] Comment on above: Performed By: #### Kamila KELSEY, [id number] ####Librarian: JAZLYN JIMENEZ ([id number])[facility] ([facility])[address] [place] [address] [place] Platelets (Bld) [#/Vol] 681 10*3/uL High 140-440 [facility] Comment on above: Performed By: #### Kamila KELSEY, [id number] ####Librarian: JAZLYN JIMENEZ ([id number])[facility] ([facility])[address] [place] [address] [place] RBC (Bld) [#/Vol] 3.50 10*6/uL Low 4.40-5.90 [facility] Comment on above: Performed By: #### L [id number], [id number] ####Librarian: JAZLYN JIMENEZ ([id number])[facility] ([facility])[address] [place] [address] WBC (Bld) [#/Vol] 13.0 10*3/uL High 3.6-10.7 [facility] Comment on above: Performed By: #### L [id number], [id number] ####Librarian: JAZLYN JIMENEZ ([id number])[facility] ([facility])[address] [place] [address] COMPLETE URINALYSISon 2024 BILIRUBIN, TOTAL PRESENCE IN URINE Negative Normal Negative [facility] Comment on above: Performed By: #### L [id number] ####Librarian: JAZLYN JIMENEZ ([id number])[facility] ([facility])[address] [place] [address] Clarity (U) Clear Normal Clear [facility] Comment on above: Performed By: #### L [id number] ####Librarian: JAZLYN JIMENEZ ([id number])[address] Color (U) Light Yellow Normal Lt. Yellow [facility] Comment on above: Performed By: #### L [id number] ####Librarian: JAZLYN JIMENEZ ([id number])[facility] ([facility])[address] [place] [address] GLUCOSE (MG/DL) IN URINE Normal Normal Normal (<70 ) [facility] Comment on above: Performed By: #### L [id number] ####Librarian: JAZLYN JIMENEZ ([id number])[facility])[address] [place] [address] HEMOGLOBIN PRESENCE IN URINE Negative Normal Negative [facility] Comment on above: Performed By: #### L [id number] ####Librarian: JAZLYN JIMENEZ ([id number])[facility] ([facility])[address] [place] [address] Ketones Ql (U) Negative Normal Negative [facility] Comment on above: Performed By: #### L [id number] ####Librarian: JAZLYN JIMENEZ ([id number])[facility])[address] [place] [address] LEUKOCYTE ESTERASE PRESENCE IN URINE BY TEST STRIP Negative Normal Negative [facility] Comment on above: Performed By: #### L [id number] ####Librarian: JAZLYN JIMENEZ ([id number])[facility] ([facility])[address] [place] [address] NITRITE PRESENCE IN URINE Negative Normal Negative [facility] Comment on above: Performed By: #### L [id number] ####Librarian: JAZLYN JIMENEZ ([id number])[facility])[address] [place] [address] pH (U) 5.5 [pH] Normal 5.0-8.0 [facility] Comment on above: Performed By: #### L [id number] ####Librarian: JAZLYN JIMENEZ ([id number])[facility] ([facility])[address] [place] [address] Protein (U) [Mass/Vol] Negative Normal Negative [facility] Comment on above: Performed By: #### L [id number] ####Librarian: JAZLYN JIMENEZ ([id number])[facility])[address] [place] [address] Specific gravity (U) [Rel density] 1.016 Normal 1.005-1.030 [facility] Comment on above: Performed By: #### L [id number] ####Librarian: JAZLYN JIMENEZ ([id number])[facility])[address] [place] [address] UROBILINOGEN (MG/DL) IN URINE Normal Normal Normal (0-1) [facility] Comment on above: Performed By: #### L [id number] ####Librarian: JAZLYN JIMENEZ ([id number])[facility] [place] [address] COMPREHENSIVE METABOLIC PANE Yuriy 12-06-2024 Albumin [Mass/Vol] 2.7 g/dL Low 3.5-5.0 [facility] Comment on above: Performed By: #### L AB17, [id number] ####Librarian: JAZLYN JIMENEZ ([id number])[facility] ([facility])[address] [place] [address] ALP [Catalytic activity/Vol] 63 U/L Normal 40-150 [facility] Comment on above: Performed By: #### L AB17, [id number] ####Librarian: JAZLYN JIMENEZ ([id number])[facility] ([facility])[address] [place] [address] ALT [Catalytic activity/Vol] 7 U/L Normal <40 [facility] Comment on above: Performed By: #### L AB17, [id number] ####Librarian: JAZLYN JIMENEZ ([id number])[facility])[address] [place] [address] Anion gap [Moles/Vol] 8 mmol/L Normal 3-13 [facility] Comment on above: Performed By: #### L AB17, [id number] ####Librarian: JAZLYN JIMENEZ ([id number])[facility] ([facility])[address] [place] [address] [place] AST [Catalytic activity/Vol] 17 U/L Normal <34 [facility] Comment on above: Performed By: #### L AB17, [id number] ####Librarian: JAZLYN JIMENEZ ([id number])[facility] ([facility])[address] [place] [address] [place] Bilirubin [Mass/Vol] 0.2 mg/dL Normal <1.2 [facility] Comment on above: Performed By: #### L AB17, [id number] ####Librarian: JAZLYN JIMENEZ ([id number])[facility] ([facility])[address] [place] [address] [place] Calcium [Mass/Vol] 10.0 mg/dL Normal 8.4-10.2 [facility] Comment on above: Performed By: #### L AB17, [id number] ####Librarian: JAZLYN JIMENEZ ([id number])[facility])[address] [place] [address] Chloride [Moles/Vol] 110 mmol/L High 98-[address] [facility] Comment on above: Performed By: #### L AB17, [id number] ####Librarian: JAZLYN JIMENEZ ([id number])[facility])[address] [place] [address] CO2 [Moles/Vol] 23 mmol/L Normal 22-29 [facility] Comment on above: Performed By: #### L AB17, [id number] ####Librarian: JAZLYN JIMENEZ ([id number])[facility])[address] [place] [address] Creatinine [Mass/Vol] 1.19 mg/dL Normal 0.72-1.25 [facility] Comment on above: Performed By: #### L AB17, [id number] ####Librarian: JAZLYN JIMENEZ ([id number])[facility] ([facility])[address] [place] [address] GLOMERULAR FILTRATION RATE ML/MIN/1.73 SQ M.PREDICTED 74.0 mL/min/1.73m*2 Normal >60.0 [facility] Comment on above: Result Comment: Calc ulation based on the Chronic Kidney Disease Epidemiology Collaboration (CKD-EPI) equation refit without adjustment for race Performed By: #### L AB17, [id number] ####Librarian: JAZLYN JIMENEZ ([id number])[facility] ([facility])[address] [place] [address] [place] Glucose [Mass/Vol] 92 mg/dL Normal 74-100 [facility] Comment on above: Performed By: #### L AB17, [id number] ####Librarian: JAZLYN JIMENEZ ([id number])[facility])[address] [place] [address] [place] Potassium [Moles/Vol] 4.3 mmol/L Normal 3.5-5.1 [facility] Comment on above: Result Comment: [facility] potassium values may be up to 0.5 mmol/L lower than serum values. Performed By: #### L AB17, [id number] ####Librarian: JAZLYN JIMENEZ ([id number])[facility] ([facility])[address] [place] [address] Protein [Mass/Vol] 7.4 g/dL Normal 6.4-8.3 [facility] Comment on above: Performed By: #### L AB17, [id number] ####Librarian: JAZLYN JIMENEZ ([id number])[facility])[address] [place] [address] Sodium [Moles/Vol] 141 mmol/L Normal 136-145 [facility] Comment on above: Performed By: #### L AB17, [id number] ####Librarian: JAZLYN JIMENEZ ([id number])[facility])[address] [place] [address] Urea nitrogen [Mass/Vol] 15 mg/dL Normal 9-23 [facility] Comment on above: Performed By: #### L AB17, [id number] ####Librarian: JAZLYN JIMENEZ ([id number])[facility])[address] [place] [address] CRP [Mass/Vol]Ordered By: Dave Churchill on 12-06-2024 Interpretation and review of laboratory results Abnormal [facility] CT PELVIS W IV CONTRASTon CT [...] on our table best imaging possible Normal [facility] CT Pelvis W contrast Mp Impression: Large wound along the proximal posterior thigh with large abscess within the posterior compartment of the left upper thigh. There is also presumed cellulitis. No obvious acute cortical erosion. Please note, the marrow is not assessed on a CT examination. Report Dictated on Electronically Signed By: Tess Carter MD Electronically Signed Date/Time: 12/06/2024 1:29 PM T [facility] 1975 [id number] Exam Date/Time: 12/06/2024 12:46 Procedure: CT PELVIS [...] Probable few small bladder diverticula present, posteriorly. [facility] Tess Carter MD - 12/06/2024 Patient Name: [facility]AN LA : 1975 [id number] Exam Date/Time: 12/06/2024 12:46 Procedure: CT PELVIS [...] Electronically Signed Date/Time: 12/06/2024 1:29 PM EDT [facility] Radiology Study observation (narrative) [facility] alth CT Pelvis W contrast IVOrder ed By: Tess Carter on 12-06-2024 [facility] Work Phone: CULTURE ANAEROBICon 12-07-19 25 CULTURE ANAEROBIC ANAEROBIC CULTURE Reference Mixed aerobic and anaerobic bacteria present. BACTEROIDES FRAGILIS GROUP Few Bacteroides fragilis group (A) [ S = SUSCEPTIBLE R = RESISTANT I = INTERMEDIATE S-DD = Susceptible-dose dependent NS = Non-susceptible NO = No Interpretation ] Normal [facility] Comment on above: Performed By: #### L [id number] #### Librarian: JAZLYN JIMENEZ ([phone]) [facility]) [address] [place] [address] CULTURE, AEROBIC BACTERIA WI TH GRAM STAINon 12-06-2024 CULTURE, AEROBIC BACTERIA WITH GRAM STAIN CULTURE Reference Moderate enteric phil present GRAM STAIN RESULT (A) Reference (A) Few Polymorphonuclear leukocytes per low power field Rare Gram negative bacilli [ S = SUSCEPTIBLE R = RESISTANT I = INTERMEDIATE S-DD = Susceptible-dose dependent NS = Non-susceptible NO = No Interpretation ] Normal [facility] Comment on above: Performed By: #### L [id number], [id number] #### Librarian: JAZLYN JIMENEZ ([id number]) [facility]) [address] [place] [address] Comprehensive metabolic 1998 panelon 12-06-2024 Albumin [Mass/Vol] 2.7 g/dL Low 3.5 - 5.0 g/dL [facility] ALP [Catalytic activity/Vol] 63 U/L 40 - 150 U/L [facility] ALT [Catalytic activity/Vol] 7 [facility] Anion gap [Moles/Vol] 8 mmol/L 3 - 13 mmol/L [facility] AST [Catalytic activity/Vol] 17 U/L [facility] U/L [facility] Bilirubin [Mass/Vol] 0.2 mg/dL NINF - 1.2 mg/dL [facility] Calcium [Mass/Vol] 10 mg/dL 8.4 - 10. 2 mg/dL [facility] Chloride [Moles/Vol] 110 mmol/L High 98 - 10 7 mmol/L [facility] CO2 [Moles/Vol] 23 mmol/L 22 - 29 mmol/L [facility] Creatinine [Mass/Vol] 1.19 mg/dL 0.72 - 1.25 mg/dL [facility] GFR/1.73 sq M.predicted (S/P/Bld) [Vol rate/Area] 74 mL/min - PINF [facility] Comment on above: Calculation based on the Chronic Kidney Disease Epidemiology Collaboration (CKD-EPI) equation refit without adjustment for race Glucose [Mass/Vol] 92 mg/dL 74 - 100 mg/dL [facility] Interpretation and review of laboratory results Abnormal [facility] Potassium [Moles/Vol] 4.3 mmol/L 3.5 - 5.1 mmol/L [facility] Comment on above: Plasma potassium jeri ues may be up to 0.5 mmol/L lower than serum values. Protein [Mass/Vol] 7.4 g/dL 6.4 - 8.3 g/dL [facility] Sodium [Moles/Vol] 141 mmol/L 136 - 145 mmol/L [facility] Urea nitrogen [Mass/Vol] 15 mg/dL 9 - 23 mg/d L [facility] ECG 12-LEADon 12-06-2024 ECG 12-LEAD IMPRESSION: Sinus bradycardia Electronically Signed On 12-06-2024 11:47:13 EDT by Fer Hollins [facility] ED Nursing Noteon 12-06-2024 ED Nursing Note Assume care of pt from AMAN Sutton for lunch coverage [facility] ED Nursing Note Patient requested pillow to place under right hip/leg for comfort. States he got a text message from that he can early check in and questioned if transfer was arranged. This nurse advised patient unknown at this time. Normal [facility] ED Nursing Note Pt to CT Normal [facility] ED Nursing Note This RN attempted to obtain another IV access and blood cultures but was unsuccessful [facility] ED Nursing Note Report to AMAN Pittman. [facility] ED Nursing Note Pt presents to ED via EMS from an assisted living facility with c/o a seeping ulcer. EMS reports this has been an ongoing issue. Pt states he is only ambulatory for short distances. Pt is A&Ox4. [facility] ED Provider Noteon 5 ED Provider Note [...] for clarification.) Fer Hollins MD Acute Care [facility] Fer Hollins MD 12/06/[address] [facility] ED Provider Note Emergency Department Encounter Location: [facility] EMERGENCY DEPT Patient: Kevan La : 1975 Date of evaluation: 12/06/2024 ED Provider: Rogelio Wilkinson DO Time received sign-out: 0464 Kevan La was checked out to me [...] 397 ms QTC Interval 390 ms P [place] 44 degrees QRS [place] 55 degrees T Wave [place] 56 degrees [place] Interval 142 ms Blood culture Site #1 [...] signout was to transfer the patient to [facility] for further management of his gluteal abscess (more content not included)... [facility] ED Provider Note EMERGENCY DEPARTMENT ENCOUNTER [...] who presents to the emergency department from [facility] facility with concern for left hip wound. Per records he has had a left hip wound and abscess for the past few months and recently had it drained at [facility]. He expresses concern for increasing pain, drainage [...] Resource Strain: Medium Risk (12/07/2024) Received from [facility] Overall Financial Resource Strain (CARDIA) Difficulty of Paying Living Expenses: Somewhat hard Food Insecurity: No Food Insecurity (12/07/2024) Received from [facility] Hunger Vital Sign Worried About Running Out of Food in the Last Year: Never true Ran Out of Food in the Last Year: Never true Recent Concern: Food Insecurity - Food Insecurity Present (10/11/2024) Received from [facility] Hunger Vital Sign Worried About Running Out of Food in the Last Year: Sometimes true Ran Out of Food in the Last Year: Sometimes true Transportation Needs: No Transportation Needs (12/07/2024) Received from [facility] PRAPARE - Transportation Lack of Transportation (Medical): No Lack of Transportation (Non-Medical): No Intimate Partner Violence: Not At Risk (12/07/2024) Received from [facility] Humiliation, Afraid, Rape, and Kick questionnaire Fear of Current or Ex-Partner: No Emotionally Abused: No Physically Abused: No Sexually Abused: No Housing Stability: High Risk (12/07/2024) Received from [facility] Housing Stability Vital Sign Unable to Pay for Housing in the Last Year: Yes Number of Times Moved in the Last Year: 1 Homeless in the Last Year: No SCREENINGS [place] Coma Scale Best Eye Response: Spontaneous Best Verbal Response: Oriented Best Motor Response: Follows commands [place] Coma Scale Score: 15 PHYSICAL EXAM ED [...] Result Impression: (more content not included)... Normal [facility] ED Provider Note I was signed [...] Fer Hull MD Resident 12/08/24 0656 Normal [facility] ESR (Bld) [Velocity]Ordered By: Philly Lal on 12-06-2024 Interpretation and review of laboratory results Abnormal [facility] Laboratory - Chemistry and C hemistry - challengeOrdered By: Oneida Churchill on 12-06-2024 CRP [Mass/Vol] 95.9 mg/L High NINF - 5.0 mg/L [facility] Laboratory - Hematology and Cell countsOrdered By: Philly Lal on 12-06-2024 ESR (Bld) [Velocity] 73 mm/h High [facility] No Panel Informationon 12-06 P [place] 44 degrees [facility] [place] Interval 142 ms [facility] QRS [place] 55 degrees [facility] QRSD Interval [address] [facility] QT Interval 397 ms [facility] QTC Interval 390 ms [facility] T Wave [place] 56 degrees [facility] Sinus bradycardia Electronically Signed On 12-06-2024 11:47:13 EDT by Fer Hollins CV Fer Nix MD - 12/06/2024 IMPRESSION: Sinus bradycardia Electronically Signed On 12-06-2024 11:47:13 EDT by Fer Hollins [facility] Progress Noteon 12-06-2024 Progress Note Culture result reviewed. No further treatment needed. Normal [facility] SEDIMENTATION RATE, AUTOMATE Don 12-06-2024 SEDIMENTATION RATE, ERYTHROCYTE 73 mm/hr High 0-10 [facility] Comment on above: Performed By: #### L [id number], [id number] ####Librarian: JAZLYN JIMENEZ ([id number])[facility] ([address] Urinalysis complete panel (U )on 12-06-2024 Bilirubin Ql (U) Negative Negative mg/dL [facility] Clarity (U) Clear Clear [facility] Health Color (U) Light Yellow Lt. Yellow [facility] Glucose Ql (U) Normal Normal (<70) mg/dL [facility] Hemoglobin Ql (U) Negative Negative mg/dL [facility] Interpretation and review of laboratory results Normal [facility] Ketones (U) [Mass/Vol] Negative Negat sulema mg/dL [facility] Leukocyte esterase Test strip Ql (U) Negative Negative Gabe/uL [facility] Nitrite Ql (U) Negative Negative [facility] Heal th pH (U) 5.5 [pH] 5.0 - 8.0 pH [facility] Protein (U) [Mass/Vol] Negative Negat sulema mg/dL [facility] Specific gravity (U) [Rel density] 1.016 1.005 - 1.030 [facility] Urobilinogen (U) [Mass/Vol] Normal Normal (0-1) mg/dL [facility] Vital signson 12-06-2024 Heart rate 58 /min bpm [facility] Anion gap in Serum or Plasma Ordered By: Julio Nolasco on 12-04-2024 Anion gap [Moles/Vol] 11 mmol/L 5-15 [facility] BUN/creatinine ratioOrdered By: Julio Nolasco on 12-04-2024 Urea nitrogen/Creatinine [Mass ratio] 11.5 mg/mg 10-20 [facility] Carbon dioxide, total [Moles /volume] in Central venous bloodOrdered By: Julio Nolasco on 12-04-2024 CO2 [Moles/Vol] 23.5 mmol/L 21.0-32.0 [facility] Chloride assayOrdered By: nicholas Nolasco on 12-04-2024 Chloride [Moles/Vol] 104 mmol/L 98-108 [facility] GFR/1.73 sq M.predicted yobany g non-blacks MDRD (S/P/Bld) [Vol rate/Area]Ordered By: Julio Nolasco on 12-04-2024 Estimated GFR (MDRD) Non-Af Amer 65 >60 [facility] Comment on above: mL/min/1.73m2 CKD-EP I Creatinine Equation (2020) Potassium (Unsp spec) [Mass/ Vol]Ordered By: Julio Nolasco on 12-04-2024 Potassium [Moles/Vol] 4.3 mmol/L 3.3-5.1 [facility] Serum creatinine measurement (mass/volume)Ordered By: Julio Nolasco on 12-04-2024 Creatinine [Mass/Vol] 1.32 mg/dL High 0.70-1.20 [facility] Serum glucose measurement (m ass/volume)Ordered By: Julio Nolasco on 12-04-2024 Glucose [Mass/Vol] 105 mg/dL High 70-99 [facility] Serum or plasma calcium mervat urement (mass/volume)Ordered By: Julio Nolasco on 12-04-2024 Calcium [Mass/Vol] 10.7 mg/dL 7.6-11.0 [facility] Serum or plasma urea nitroge n measurement (mass/volume)Ordered By: Julio Nolasco on 12-04-2024 Urea nitrogen [Mass/Vol] 15 mg/dL 4-19 [facility] Sodium levelOrdered By: William Nolasco on 12-04-2024 Sodium [Moles/Vol] 139 mmol/L 133-145 [facility] CBC W Auto Differential pane l (Bld)on 11-27-2024 Basophils (Bld) [#/Vol] 0.09 10*3/uL [facility] Basophils/100 WBC (Bld) 0.7 % 0.0 - 2.0 % [facility] Eosinophils (Bld) [#/Vol] 0.58 10*3/uL [facility] Eosinophils/100 WBC (Bld) 4.7 % 0.0 - 6.0 % [facility] Erythrocyte distribution width (RBC) [Ratio] 16.4 % High 11.5 - 14.5 % [facility] Hematocrit (Bld) [Volume fraction] 25 % Low 41.0 - 52.0 % [facility] Hemoglobin (Bld) [Mass/Vol] 7.9 g/dL Low 13.5 - 17.5 g/dL [facility] Immature granulocytes (Bld) [#/Vol] 0.04 10*3/uL [facility] Immature granulocytes/100 WBC (Bld) 0.3 % 0.0 - 0.9 % [facility] Interpretation and review of laboratory results Abnormal [facility] Lymphocytes (Bld) [#/Vol] 1.78 10*3/uL [facility] Lymphocytes/100 WBC (Bld) 14.5 % 13.0 - 44.0 % [facility] MCH (RBC) [Entitic mass] 26.7 pg 26. 0 - 34.0 pg [facility] MCHC (RBC) [Mass/Vol] 31.6 g/dL Low 32.0 - 36.0 g/dL [facility] MCV (RBC) [Entitic vol] 85 fL 80 - 100 fL [facility] Monocytes (Bld) [#/Vol] 0.92 10*3/uL [facility] Monocytes/100 WBC (Bld) 7.5 % 2.0 - 10.0 % [facility] Neutrophils (Bld) [#/Vol] 8.88 10*3/uL High [facility] Neutrophils/100 WBC (Bld) 72.3 % 40.0 - 80.0 % [facility] Nucleated RBC/100 WBC (Bld) [Ratio] 0 % [facility] Platelets (Bld) [#/Vol] 715 10*3/uL High [facility] RBC (Bld) [#/Vol] 2.96 10*6/uL Low Unive [facility] WBC (Bld) [#/Vol] 12.3 10*3/uL High [facility] Magnesiumon 11-27-2024 Magnesium [Mass/Vol] 1.75 mg/dL 1.60 - 2.40 mg/dL [facility] Magnesium [Mass/Vol]on 11-27 Interpretation and review of laboratory results Normal [facility] No Panel Informationon 11-27 [facility] Renal function 2000 panelon 11-27-2024 Albumin BCP dye [Mass/Vol] 3.2 g/dL Low 3.4 - 5.0 g/dL [facility] Anion gap [Moles/Vol] 14 mmol/L 10 - 2 0 mmol/L [facility] Calcium [Mass/Vol] 9.5 mg/dL 8.6 - 10. 6 mg/dL [facility] Chloride [Moles/Vol] 99 mmol/L 98 - 10 7 mmol/L [facility] CO2 [Moles/Vol] 27 mmol/L 21 - 32 mmol/L [facility] Creatinine [Mass/Vol] 1.38 mg/dL High 0.50 - 1.30 mg/dL [facility] GFR/1.73 sq M.predicted among non-blacks MDRD (S/P/Bld) [Vol rate/Area] 62 mL/min/{1.73_m2} - PINF [facility] Glucose [Mass/Vol] 139 mg/dL High 74 - 99 mg[facility] Interpretation and review of laboratory results Abnormal [facility] Phosphate [Mass/Vol] 2.5 mg/dL 2.5 - 4 .9 mg/dL [facility] Potassium [Moles/Vol] 4 mmol/L 3.5 - 5.3 mmol/L [facility] Sodium [Moles/Vol] 136 mmol/L 136 - 145 mmol/L [facility] Urea nitrogen [Mass/Vol] 10 mg/dL 6 - 23 mg/d L [facility] Bacteria identified Cx Nom ( Bld)on 11-26-2024 Interpretation and review of laboratory results Normal [facility] CBC W Auto Differential pane l (Bld)on 11-26-2024 Basophils (Bld) [#/Vol] 0.1 10*3/uL [facility] Basophils/100 WBC (Bld) 0.8 % 0.0 - 2.0 % [facility] Eosinophils (Bld) [#/Vol] 0.51 10*3/uL [facility] Eosinophils/100 WBC (Bld) 4.2 % 0.0 - 6.0 % [facility] Erythrocyte distribution width (RBC) [Ratio] 16.2 % High 11.5 - 14.5 % [facility] Hematocrit (Bld) [Volume fraction] 26.6 % Low 41.0 - 52.0 % [facility] Hemoglobin (Bld) [Mass/Vol] 8.3 g/dL Low 13.5 - 17.5 g/dL [facility] Immature granulocytes (Bld) [#/Vol] 0.05 10*3/uL [facility] Immature granulocytes/100 WBC (Bld) 0.4 % 0.0 - 0.9 % [facility] Interpretation and review of laboratory results Abnormal [facility] Lymphocytes (Bld) [#/Vol] 1.6 10*3/uL [facility] Lymphocytes/100 WBC (Bld) 13.3 % 13.0 - 44.0 % [facility] MCH (RBC) [Entitic mass] 26.4 pg 26. 0 - 34.0 pg [facility] MCHC (RBC) [Mass/Vol] 31.2 g/dL Low 32.0 - 36.0 g/dL [facility] MCV (RBC) [Entitic vol] 85 fL 80 - 100 fL [facility] Monocytes (Bld) [#/Vol] 1.2 10*3/uL High [facility] Monocytes/100 WBC (Bld) 9.9 % 2.0 - 10.0 % [facility] Neutrophils (Bld) [#/Vol] 8.61 10*3/uL High [facility] Neutrophils/100 WBC (Bld) 71.4 % 40.0 - 80.0 % [facility] Nucleated RBC/100 WBC (Bld) [Ratio] 0 % [facility] Platelets (Bld) [#/Vol] 780 10*3/uL High [facility] RBC (Bld) [#/Vol] 3.14 10*6/uL Low Unive [facility] WBC (Bld) [#/Vol] 12.1 10*3/uL High [facility] Laboratory - Microbiology an d Antimicrobial susceptibilityon 11-26-2024 Bacteria identified Cx Nom (Bld) No growth at 4 days - FINAL REPORT [facility] Magnesiumon 11-26-2024 Magnesium [Mass/Vol] 2.07 mg/dL 1.60 - 2.40 mg/dL [facility] Magnesium [Mass/Vol]on 11-26 Interpretation and review of laboratory results Normal [facility] No Panel Informationon 11-26 [facility] Renal function 2000 panelon 11-26-2024 Albumin BCP dye [Mass/Vol] 3.4 g/dL 3.4 - 5.0 g/dL [facility] Anion gap [Moles/Vol] 17 mmol/L 10 - 2 0 mmol/L [facility] Calcium [Mass/Vol] 9.2 mg/dL 8.6 - 10. 6 mg/dL [facility] Chloride [Moles/Vol] 101 mmol/L 98 - 10 7 mmol/L [facility] CO2 [Moles/Vol] 24 mmol/L 21 - 32 mmol/L [facility] Creatinine [Mass/Vol] 1.22 mg/dL 0.50 - 1.30 mg/dL [facility] GFR/1.73 sq M.predicted among non-blacks MDRD (S/P/Bld) [Vol rate/Area] 72 mL/min/{1.73_m2} - PINF [facility] Glucose [Mass/Vol] 110 mg/dL High 74 - 99 mg/dL Uni [facility] Interpretation and review of laboratory results Abnormal [facility] Phosphate [Mass/Vol] 2.9 mg/dL 2.5 - 4 .9 mg/dL [facility] Potassium [Moles/Vol] 4.4 mmol/L 3.5 - 5.3 mmol/L [facility] Sodium [Moles/Vol] 138 mmol/L 136 - 145 mmol/L [facility] Urea nitrogen [Mass/Vol] 10 mg/dL 6 - 23 mg/d L [facility] Bacteria identified Cx Nom ( Unsp spec)on 11-25-2024 Interpretation and review of laboratory results Abnormal [facility] Work Phone: Microscopic observation Gram stain Nom (Unsp spec) (1+) Rare Polymorphonuclear leukocytes Abnormal [facility] Work Phone: Microscopic observation Gram stain Nom (Unsp spec) (4+) Abundant Mixed Gram positive and Gram negative bacteria Abnormal [facility] Work Phone: [facility] Work Phone: CBC W Auto Differential pane l (Bld)on 11-25-2024 Basophils (Bld) [#/Vol] 0.08 10*3/uL [facility] Basophils/100 WBC (Bld) 0.8 % 0.0 - 2.0 % [facility] Eosinophils (Bld) [#/Vol] 0.49 10*3/uL [facility] Eosinophils/100 WBC (Bld) 5.2 % 0.0 - 6.0 % [facility] Erythrocyte distribution width (RBC) [Ratio] 16.5 % High 11.5 - 14.5 % [facility] Hematocrit (Bld) [Volume fraction] 26.3 % Low 41.0 - 52.0 % [facility] Hemoglobin (Bld) [Mass/Vol] 8.1 g/dL Low 13.5 - 17.5 g/dL [facility] Immature granulocytes (Bld) [#/Vol] 0.03 10*3/uL [facility] Immature granulocytes/100 WBC (Bld) 0.3 % 0.0 - 0.9 % [facility] Interpretation and review of laboratory results Abnormal [facility] Lymphocytes (Bld) [#/Vol] 1.75 10*3/uL [facility] Lymphocytes/100 WBC (Bld) 18.5 % 13.0 - 44.0 % [facility] MCH (RBC) [Entitic mass] 26.5 pg 26. 0 - 34.0 pg [facility] MCHC (RBC) [Mass/Vol] 30.8 g/dL Low 32.0 - 36.0 g/dL [facility] MCV (RBC) [Entitic vol] 86 fL 80 - 100 fL [facility] Monocytes (Bld) [#/Vol] 1.08 10*3/uL High [facility] Monocytes/100 WBC (Bld) 11.4 % 2.0 - 10.0 % [facility] Neutrophils (Bld) [#/Vol] 6.01 10*3/uL [facility] Neutrophils/100 WBC (Bld) 63.8 % 40.0 - 80.0 % [facility] Nucleated RBC/100 WBC (Bld) [Ratio] 0 % [facility] Platelets (Bld) [#/Vol] 747 10*3/uL High [facility] RBC (Bld) [#/Vol] 3.06 10*6/uL [facility] WBC (Bld) [#/Vol] 9.4 10*3/uL [facility] Magnesiumon 11-25-2024 Magnesium [Mass/Vol] 1.95 mg/dL 1.60 - 2.40 mg/dL [facility] Magnesium [Mass/Vol]on 11-25 Interpretation and review of laboratory results Normal [facility] No Panel Informationon 11-25 [facility] Renal function 2000 panelon 11-25-2024 Albumin BCP dye [Mass/Vol] 3.1 g/dL Low 3.4 - 5.0 g/dL [facility] Anion gap [Moles/Vol] 14 mmol/L 10 - 2 0 mmol/L [facility] Calcium [Mass/Vol] 9 mg/dL 8.6 - 10. 6 mg/dL [facility] Chloride [Moles/Vol] 100 mmol/L 98 - 10 7 mmol/L [facility] CO2 [Moles/Vol] 27 mmol/L 21 - 32 mmol/L [facility] Creatinine [Mass/Vol] 1.29 mg/dL 0.50 - 1.30 mg/dL [facility] GFR/1.73 sq M.predicted among non-blacks MDRD (S/P/Bld) [Vol rate/Area] 67 mL/min/{1.73_m2} - PINF [facility] Glucose [Mass/Vol] 101 mg/dL High 74 - 99 mg/dL [facility] Interpretation and review of laboratory results Abnormal [facility] Phosphate [Mass/Vol] 2.7 mg/dL 2.5 - 4 .9 mg/dL [facility] Potassium [Moles/Vol] 3.6 mmol/L 3.5 - 5.3 mmol/L [facility] Sodium [Moles/Vol] 137 mmol/L 136 - 145 mmol/L [facility] Urea nitrogen [Mass/Vol] 10 mg/dL 6 - 23 mg/d L [facility] Tissue/Wound Culture/Smearon 11-25-2024 Bacteria identified Cx Nom (Unsp spec) (4+) Abundant Mixed Gram-Positive and Gram-Negative Bacteria [facility] Work Phone: Bacteria identified Cx Nom ( Unsp spec)on 11-24-2024 Beta lactamase organism identified Nom (Isol) Positive [facility] Work Phone: Interpretation and review of laboratory results Abnormal [facility] Work Phone: Microscopic observation Gram stain Nom (Unsp spec) (3+) Moderate Polymorphonuclear leukocytes Abnormal [facility] Work Phone: Microscopic observation Gram stain Nom (Unsp spec) Negative Abnormal [facility] Work Phone: [facility] Work Phone: Bacteria identified Cx Nom ( Unsp spec)Ordered By: Mari Monique on 11-24-2024 Interpretation and review of laboratory results Abnormal [facility] Microscopic observation Gram stain Nom (Unsp spec) No polymorphonuclear leukocytes seen Abnormal [facility] Microscopic observation Gram stain Nom (Unsp spec) (4+) Abundant Mixed Gram positive and Gram negative bacteria Abnormal [facility] CBC W Auto Differential pane l (Bld)on 11-24-2024 Basophils (Bld) [#/Vol] 0.1 10*3/uL [facility] Basophils/100 WBC (Bld) 0.9 % 0.0 - 2.0 % [facility] Eosinophils (Bld) [#/Vol] 0.52 10*3/uL [facility] Eosinophils/100 WBC (Bld) 4.9 % 0.0 - 6.0 % [facility] Erythrocyte distribution width (RBC) [Ratio] 16.1 % High 11.5 - 14.5 % [facility] Hematocrit (Bld) [Volume fraction] 28.6 % Low 41.0 - 52.0 % [facility] Hemoglobin (Bld) [Mass/Vol] 8.7 g/dL Low 13.5 - 17.5 g/dL [facility] Immature granulocytes (Bld) [#/Vol] 0.03 10*3/uL [facility] Immature granulocytes/100 WBC (Bld) 0.3 % 0.0 - 0.9 % [facility] Interpretation and review of laboratory results Abnormal [facility] Lymphocytes (Bld) [#/Vol] 1.84 10*3/uL [facility] Lymphocytes/100 WBC (Bld) 17.2 % 13.0 - 44.0 % [facility] MCH (RBC) [Entitic mass] 26.4 pg 26. 0 - 34.0 pg [facility] MCHC (RBC) [Mass/Vol] 30.4 g/dL Low 32.0 - 36.0 g/dL [facility] MCV (RBC) [Entitic vol] 87 fL 80 - 100 fL [facility] Monocytes (Bld) [#/Vol] 1.11 10*3/uL High [facility] Monocytes/100 WBC (Bld) 10.4 % 2.0 - 10.0 % [facility] Neutrophils (Bld) [#/Vol] 7.12 10*3/uL [facility] Neutrophils/100 WBC (Bld) 66.3 % 40.0 - 80.0 % [facility] Nucleated RBC/100 WBC (Bld) [Ratio] 0 % [facility] Platelets (Bld) [#/Vol] 818 10*3/uL High [facility] RBC (Bld) [#/Vol] 3.29 10*6/uL Low Unive [facility] WBC (Bld) [#/Vol] 10.7 10*3/uL [facility] Magnesiumon 11-24-2024 Magnesium [Mass/Vol] 1.88 mg/dL 1.60 - 2.40 mg/dL [facility] Magnesium [Mass/Vol]on 11-24 Interpretation and review of laboratory results Normal [facility] No Panel Informationon 11-24 [facility] Renal function 2000 panelon 11-24-2024 Albumin BCP dye [Mass/Vol] 3.2 g/dL Low 3.4 - 5.0 g/dL [facility] Anion gap [Moles/Vol] 11 mmol/L 10 - 2 0 mmol/L [facility] Calcium [Mass/Vol] 9.1 mg/dL 8.6 - 10. 6 mg/dL [facility] Chloride [Moles/Vol] 99 mmol/L 98 - 10 7 mmol/L [facility] CO2 [Moles/Vol] 30 mmol/L 21 - 32 mmol/L [facility] Creatinine [Mass/Vol] 1.38 mg/dL High 0.50 - 1.30 mg/dL [facility] GFR/1.73 sq M.predicted among non-blacks MDRD (S/P/Bld) [Vol rate/Area] 62 mL/min/{1.73_m2} - PINF [facility] Glucose [Mass/Vol] 109 mg/dL High 74 - 99 mg/dL [facility] Interpretation and review of laboratory results Abnormal [facility] Phosphate [Mass/Vol] 3.3 mg/dL 2.5 - 4 .9 mg/dL [facility] Potassium [Moles/Vol] 3.8 mmol/L 3.5 - 5.3 mmol/L [facility] Sodium [Moles/Vol] 136 mmol/L 136 - 145 mmol/L [facility] Urea nitrogen [Mass/Vol] 15 mg/dL 6 - 23 mg/d L [facility] Tissue/Wound Culture/Smearon 11-24-2024 Bacteria identified Cx Nom (Unsp spec) Negative [facility] Work Phone: Bacteria identified Cx Nom (Unsp spec) (4+) Abundant Mixed Anaerobic Bacteria [facility] Work Phone: Tissue/Wound Culture/SmearOr dered By: Mari Monique on 11-24-2024 Bacteria identified Cx Nom (Unsp spec) (4+) Abundant Mixed Gram-Positive and Gram-Negative Bacteria [facility] CBC W Auto Differential pane l (Bld)on 11-23-2024 Basophils (Bld) [#/Vol] 0.11 10*3/uL High [facility] Basophils/100 WBC (Bld) 0.8 % 0.0 - 2.0 % [facility] Eosinophils (Bld) [#/Vol] 0.5 10*3/uL [facility] Eosinophils/100 WBC (Bld) 3.5 % 0.0 - 6.0 % [facility] Erythrocyte distribution width (RBC) [Ratio] 16.3 % High 11.5 - 14.5 % [facility] Hematocrit (Bld) [Volume fraction] 30.1 % Low 41.0 - 52.0 % [facility] Hemoglobin (Bld) [Mass/Vol] 9.4 g/dL Low 13.5 - 17.5 g/dL [facility] Immature granulocytes (Bld) [#/Vol] 0.08 10*3/uL [facility] Immature granulocytes/100 WBC (Bld) 0.6 % 0.0 - 0.9 % [facility] Interpretation and review of laboratory results Abnormal [facility] Lymphocytes (Bld) [#/Vol] 1.65 10*3/uL [facility] Lymphocytes/100 WBC (Bld) 11.5 % 13.0 - 44.0 % [facility] MCH (RBC) [Entitic mass] 26.8 pg 26. 0 - 34.0 pg [facility] MCHC (RBC) [Mass/Vol] 31.2 g/dL Low 32.0 - 36.0 g/dL [facility] MCV (RBC) [Entitic vol] 86 fL 80 - 100 fL [facility] Monocytes (Bld) [#/Vol] 1.59 10*3/uL High [facility] Monocytes/100 WBC (Bld) 11.1 % 2.0 - 10.0 % [facility] Neutrophils (Bld) [#/Vol] 10.38 10*3/uL High [facility] Neutrophils/100 WBC (Bld) 72.5 % 40.0 - 80.0 % [facility] Nucleated RBC/100 WBC (Bld) [Ratio] 0 % [facility] Platelets (Bld) [#/Vol] 844 10*3/uL High [facility] RBC (Bld) [#/Vol] 3.51 10*6/uL Low Unive [facility] WBC (Bld) [#/Vol] 14.3 10*3/uL [facility] Magnesiumon 11-23-2024 Magnesium [Mass/Vol] 1.94 mg/dL 1.60 - 2.40 mg/dL [facility] Magnesium [Mass/Vol]on 11-23 Interpretation and review of laboratory results Normal [facility] No Panel Informationon 11-23 [facility] Renal function 2000 panelon 11-23-2024 Albumin BCP dye [Mass/Vol] 3.4 g/dL 3.4 - 5.0 g/dL [facility] Anion gap [Moles/Vol] 15 mmol/L 10 - 2 0 mmol/L [facility] Calcium [Mass/Vol] 9.3 mg/dL 8.6 - 10. 6 mg/dL [facility] Chloride [Moles/Vol] 99 mmol/L 98 - 10 7 mmol/L [facility] CO2 [Moles/Vol] 25 mmol/L 21 - 32 mmol/L [facility] Creatinine [Mass/Vol] 1.36 mg/dL High 0.50 - 1.30 mg/dL [facility] GFR/1.73 sq M.predicted among non-blacks MDRD (S/P/Bld) [Vol rate/Area] 63 mL/min/{1.73_m2} - PINF [facility] Glucose [Mass/Vol] 101 mg/dL High 74 - 99 mg/dL [facility] Interpretation and review of laboratory results Abnormal [facility] Phosphate [Mass/Vol] 3 mg/dL 2.5 - 4 .9 mg/dL [facility] Potassium [Moles/Vol] 4 mmol/L 3.5 - 5.3 mmol/L [facility] Sodium [Moles/Vol] 135 mmol/L Low 136 - 145 mmol/L [facility] Urea nitrogen [Mass/Vol] 14 mg/dL 6 - 23 mg/d L [facility] CBC W Auto Differential pane l (Bld)on 11-22-2024 Basophils (Bld) [#/Vol] 0.09 10*3/uL [facility] Basophils/100 WBC (Bld) 0.7 % 0.0 - 2.0 % [facility] Eosinophils (Bld) [#/Vol] 0.36 10*3/uL [facility] Eosinophils/100 WBC (Bld) 2.7 % 0.0 - 6.0 % [facility] Erythrocyte distribution width (RBC) [Ratio] 16 % High 11.5 - 14.5 % [facility] Hematocrit (Bld) [Volume fraction] 27.8 % Low 41.0 - 52.0 % [facility] Hemoglobin (Bld) [Mass/Vol] 8.7 g/dL Low 13.5 - 17.5 g/dL [facility] Immature granulocytes (Bld) [#/Vol] 0.04 10*3/uL [facility] Immature granulocytes/100 WBC (Bld) 0.3 % 0.0 - 0.9 % [facility] Interpretation and review of laboratory results Abnormal [facility] Lymphocytes (Bld) [#/Vol] 1.44 10*3/uL [facility] Lymphocytes/100 WBC (Bld) 10.7 % 13.0 - 44.0 % [facility] MCH (RBC) [Entitic mass] 26.9 pg 26. 0 - 34.0 pg [facility] MCHC (RBC) [Mass/Vol] 31.3 g/dL Low 32.0 - 36.0 g/dL [facility] MCV (RBC) [Entitic vol] 86 fL 80 - 100 fL [facility] Monocytes (Bld) [#/Vol] 1.28 10*3/uL High [facility] Monocytes/100 WBC (Bld) 9.5 % 2.0 - 10.0 % [facility] Neutrophils (Bld) [#/Vol] 10.28 10*3/uL High [facility] Neutrophils/100 WBC (Bld) 76.1 % 40.0 - 80.0 % [facility] Nucleated RBC/100 WBC (Bld) [Ratio] 0 % [facility] Platelets (Bld) [#/Vol] 780 10*3/uL High [facility] RBC (Bld) [#/Vol] 3.24 10*6/uL Low Unive [facility] WBC (Bld) [#/Vol] 13.5 10*3/uL High [facility] Magnesiumon 11-22-2024 Magnesium [Mass/Vol] 2 mg/dL 1.60 - 2.40 mg/dL [facility] Magnesium [Mass/Vol]on 11-22 Interpretation and review of laboratory results Normal [facility] No Panel Informationon 11-22 [facility] Renal function 2000 panelon 11-22-2024 Albumin BCP dye [Mass/Vol] 3.4 g/dL 3.4 - 5.0 g/dL [facility] Anion gap [Moles/Vol] 13 mmol/L 10 - 2 0 mmol/L [facility] Calcium [Mass/Vol] 9.3 mg/dL 8.6 - 10. 6 mg/dL [facility] Chloride [Moles/Vol] 100 mmol/L 98 - 10 7 mmol/L [facility] CO2 [Moles/Vol] 25 mmol/L 21 - 32 mmol/L [facility] Creatinine [Mass/Vol] 1.2 mg/dL 0.50 - 1.30 mg/dL [facility] GFR/1.73 sq M.predicted among non-blacks MDRD (S/P/Bld) [Vol rate/Area] 73 mL/min/{1.73_m2} - PINF [facility] Glucose [Mass/Vol] 105 mg/dL High 74 - 99 mg/dL [facility] Interpretation and review of laboratory results Abnormal [facility] Phosphate [Mass/Vol] 2.5 mg/dL 2.5 - 4 .9 mg/dL [facility] Potassium [Moles/Vol] 4.1 mmol/L 3.5 - 5.3 mmol/L [facility] Sodium [Moles/Vol] 134 mmol/L Low 136 - 145 mmol/L [facility] Urea nitrogen [Mass/Vol] 15 mg/dL 6 - 23 mg/d L [facility] CBC W Auto Differential pane l (Bld)on 11-21-2024 Basophils (Bld) [#/Vol] 0.09 10*3/uL [facility] Basophils/100 WBC (Bld) 0.7 % 0.0 - 2.0 % [facility] Eosinophils (Bld) [#/Vol] 0.38 10*3/uL [facility] Eosinophils/100 WBC (Bld) 3.1 % 0.0 - 6.0 % [facility] Erythrocyte distribution width (RBC) [Ratio] 16 % High 11.5 - 14.5 % [facility] Hematocrit (Bld) [Volume fraction] 26.9 % Low 41.0 - 52.0 % [facility] Hemoglobin (Bld) [Mass/Vol] 8.6 g/dL Low 13.5 - 17.5 g/dL [facility] Immature granulocytes (Bld) [#/Vol] 0.04 10*3/uL [facility] Immature granulocytes/100 WBC (Bld) 0.3 % 0.0 - 0.9 % [facility] Interpretation and review of laboratory results Abnormal [facility] Lymphocytes (Bld) [#/Vol] 1.38 10*3/uL [facility] Lymphocytes/100 WBC (Bld) 11.1 % 13.0 - 44.0 % [facility] MCH (RBC) [Entitic mass] 27.2 pg 26. 0 - 34.0 pg [facility] MCHC (RBC) [Mass/Vol] 32 g/dL 32.0 - 36.0 g/dL [facility] MCV (RBC) [Entitic vol] 85 fL 80 - 100 fL [facility] Monocytes (Bld) [#/Vol] 1.2 10*3/uL High [facility] Monocytes/100 WBC (Bld) 9.7 % 2.0 - 10.0 % [facility] Neutrophils (Bld) [#/Vol] 9.33 10*3/uL High [facility] Neutrophils/100 WBC (Bld) 75.1 % 40.0 - 80.0 % [facility] Nucleated RBC/100 WBC (Bld) [Ratio] 0 % [facility] Platelets (Bld) [#/Vol] 745 10*3/uL High [facility] RBC (Bld) [#/Vol] 3.16 10*6/uL Low [facility] WBC (Bld) [#/Vol] 12.4 10*3/uL High [facility]/lambda free, serum; [facility]; KLFRS - Miscellaneous TestOrdered By: Deborah Youngblood on 11-21-2024 Scan Result See Scanned Result [facility] [place] 11-21-2024 Magnesium [Mass/Vol] 1.86 mg/dL 1.60 - 2.40 mg/dL [facility] Magnesium [Mass/Vol]on 11-21 Interpretation and review of laboratory results Normal [facility] No Panel Informationon 11-21 [facility] Renal function 2000 panelon 11-21-2024 Albumin BCP dye [Mass/Vol] 3.2 g/dL Low 3.4 - 5.0 g/dL [facility] Anion gap [Moles/Vol] 16 mmol/L 10 - 2 0 mmol/L [facility] Calcium [Mass/Vol] 9.3 mg/dL 8.6 - 10. 6 mg/dL [facility] Chloride [Moles/Vol] 102 mmol/L 98 - 10 7 mmol/L [facility] CO2 [Moles/Vol] 23 mmol/L 21 - 32 mmol/L [facility] Creatinine [Mass/Vol] 1.29 mg/dL 0.50 - 1.30 mg/dL [facility] GFR/1.73 sq M.predicted among non-blacks MDRD (S/P/Bld) [Vol rate/Area] 67 mL/min/{1.73_m2} - PINF [facility] Glucose [Mass/Vol] 96 mg/dL 74 - 99 mg/dL Uni [facility] Interpretation and review of laboratory results Abnormal [facility] Phosphate [Mass/Vol] 2.7 mg/dL 2.5 - 4 .9 mg/dL [facility] Potassium [Moles/Vol] 4 mmol/L 3.5 - 5.3 mmol/L [facility] Sodium [Moles/Vol] 137 mmol/L 136 - 145 mmol/L [facility] Urea nitrogen [Mass/Vol] 14 mg/dL 6 - 23 mg/d L [facility] CBC W Auto Differential pane l (Bld)on 11-20-2024 Basophils (Bld) [#/Vol] 0.08 10*3/uL [facility] Basophils/100 WBC (Bld) 0.7 % 0.0 - 2.0 % [facility] Eosinophils (Bld) [#/Vol] 0.45 10*3/uL [facility] Eosinophils/100 WBC (Bld) 4 % 0.0 - 6.0 % [facility] Erythrocyte distribution width (RBC) [Ratio] 16.3 % High 11.5 - 14.5 % [facility] Hematocrit (Bld) [Volume fraction] 28.4 % Low 41.0 - 52.0 % [facility] Hemoglobin (Bld) [Mass/Vol] 8.6 g/dL Low 13.5 - 17.5 g/dL [facility] Immature granulocytes (Bld) [#/Vol] 0.05 10*3/uL [facility] Immature granulocytes/100 WBC (Bld) 0.4 % 0.0 - 0.9 % [facility] Interpretation and review of laboratory results Abnormal [facility] Lymphocytes (Bld) [#/Vol] 1.78 10*3/uL [facility] Lymphocytes/100 WBC (Bld) 15.6 % 13.0 - 44.0 % [facility] MCH (RBC) [Entitic mass] 26.9 pg 26. 0 - 34.0 pg [facility] MCHC (RBC) [Mass/Vol] 30.3 g/dL Low 32.0 - 36.0 g/dL [facility] MCV (RBC) [Entitic vol] 89 fL 80 - 100 fL [facility] Monocytes (Bld) [#/Vol] 1.18 10*3/uL High [facility] Monocytes/100 WBC (Bld) 10.4 % 2.0 - 10.0 % [facility] Neutrophils (Bld) [#/Vol] 7.84 10*3/uL High [facility] Neutrophils/100 WBC (Bld) 68.9 % 40.0 - 80.0 % [facility] Nucleated RBC/100 WBC (Bld) [Ratio] 0 % [facility] Platelets (Bld) [#/Vol] 771 10*3/uL High [facility] RBC (Bld) [#/Vol] 3.2 10*6/uL Low [facility] WBC (Bld) [#/Vol] 11.4 10*3/uL [facility] Dermatopathology- DERM LABOr dered By: James Bustamante on 11-20-2024 Laboratory comment [facility] (Report) t5pzyTClFOZbq3mfPIDg bGFuZzEwMzNcZnRuYmpc fWDcONmswkMvWTzie6Mq U4XgJzKcMDltbvPrOYAk EqkgoymfHVLjNMM7xpLq LKHmLGgoYWQkDRmcAn5t sTUrnBxgLkQqEKExd5tn gqZGPUmyPETHRNu5d7ib SKLlLaR4rVCtESrgW2td jtMrmSIxN5Nka4JwLBy6 wI59HBUkiF0txHMbXAuf uyGpWjN4MKnxTCFfZiP6 WRGfnUPqURMpD4vzPAYg XGdyZWVuMFxibHVlMCA7 iXvzz9E2yLAsuCGdbIod HkJyKsQpZyKCj0KrWGt4 tVzvZ4RxQXAmXxN9uMSj UGFyYWdyYXBoIEZvbnQ7 xV53SEybtcK5sUYhh1Gh z31rp550sD3ilCLrREK5 MTIyNDBccGFwZXJoMTU4 SCKioGSyF5foPyFdnFEh B2CuPaQhrQSyK7GwPnRe aOYrR5MvRgKtqFEqLPXh rTZ2UHuqy708GAG2GeVy BE1dU6Yfb1I5vO9hsWMc GEQaoKUqEfSuAOAfsn4t nEBwQXgjk2AfQYG0cuK2 oFAvoHGiCRYtYG62Ybwd v3UlJzbiOEP9JLDknfBv i3Hod8cvNvJkwdXnB6dr L1WrPYIiCFKoOSArWmYp jrKdm1Xmm3IpzLMzoSm8 l4drZNFgXSUjjHkgp9zj QBU8NQFrJ6I5vGZab3is PIrfBNIwnEV5zyF5BZtb XYStheD1gyY2EZeeDBZh oFN7yrY5VQbnFJRlGuR5 jxE6OEseHBKpXJV6YoAh ODSoj8IutnadCySzx4Sh qBHmTLtwU62zg084XHEy rhSiR7hseNQhfjszcYIv kxdpZFmbdqJ1BBXwZEDe YWluXGYxXGZzMjBcbGFu ZzEwMzNcaGljaFxmMVxk NeSrISNoRGmoD4vsYySm VfWzWOQAjUR5oDGib6hb ugT4wZLdTR3qUQKkzFVw xtBvd8P6PUC0oDZurS9l zVMjNEEfaKNwgjOfmx18 qYMszHF6NKPcJSZewFYi vW9rTTJjYQMPxL3zhLJO zwXcveDcDFHxcKhsjr8A lZQkmt1xzBMaS2NcqCfo aWVzIHRoYXQgdGhleSBo SCFrFPXkmyevl3LtJYWf vKQiU0IxPO7xPJOrkj46 [facility] Work Phone: Pathology report addendum [employer] (Spec) d1etiLToDAXgpCXhMHqm FfdtrwJjURWifUNgT1Dl nosiZEkiED8hHU3rtRbw pOPvyBEoOZXzZcHiv6yd z375gCStu2jfOMSVgeqd gZd2zYebW01br2T7Cjuw T12wiFKoISI8RLNtTFGq sQUdEVVuVIT7RZAheDPd U8oqPSBnGN5smbslDOkb YVweVQEcfPO3KIHitMIx Q3ArYODzQIvwOWDqnpf2 NnFmWs9ipGXitFsmBGsk YXJkXHBsYWluXGZzMjAg EBtQZrYYwBN0cTNobdWl bABekMCpKbS1zDSaX2ie oyukwOFhIMCyL12pL47f JoBzPED0DDktVXzjhbBz JOReg0QnIQVbBQ8jNWej LM1iP3F8kQWyCTXtpeTr gHfcb0tiWmWLwXbvu7bo n2IkuqDxCC3yu1ImHxTe ZXhjbHVkZWQgYXMgdGhl RQ7ahw0lfCP8VA2pAHFb DWEmzMYzxY2koyKtqeJv mVQewO57vjVpQRipCGAh baCzka7pPT2stOVuQAZk cn0= [facility] Work Phone: Pathology report Cancer Narrative [facility] Work Phone: [phone] Pathology report final diagnosis Narrative a2oaxTWsQNYowVGdAYmq YcuwplLdLDOvoGTeE8Fd ybzzWLciXC6bMS0cdDtf kDFudUZkKRJtEcOtz3cv k365eMWdc0qhLXKYkjww aKx4jMsoU69ef4M7Xahw T68alGTuGVS3XNGrLZSv jSMdXERrMQE5SCJydDGv X3enSUDzDE8gqakmOXwm MDfjACMemVQ1URUuzCAu D4UdJSUrHZlaRMJagkk9 MfYuGw5xlQWjqVznBFll YXJkXHBsYWluXGZzMjAg UC7zP6wCJhosNIqZQDBc UFJPWElNQUwsIFBVTkNI WIJRF9ARRWrnbGBpRRHu VO9INHQCHqRdG8JUCL9D FIQkD9DBBYUJMIQVHN0A YNAiQWcefl02WIL3d4ju aWVsZHtcKlxmbGRpbnN0 HCnLVVDJAHyCYdWjYS8p TKrXM4RGKElJPytxPBG1 H2sagDR1v8dawSHzk1m1 CPxvYQD3vLcOSDi1WQRl FOacg6qxJXNeDAuvj4Wp SChBLFQZMV3FXR2rcPB2 MFoWYQIXNZevNTT7T9uz tMZ4n4cfeSCsc9a7EYvr JBE6rJefnGBzipmgMOFm MjAgIERJRkZFUkVOVElB VEVELCBccHJvdGVjdHtc BrwdzLX4YSdiZdmfcK9e dCBIWVBFUkxJTksgbmFt MT8RRZFMXcMBMX36Afi6 PGj0FgfoeBipBogodhSp bJKyUwWdzH5HJwZUSR9B HE9SSWDDNOFUPFPWYEgH HpYCBJ4BIadZNmpyOuvv mCV5IOvoDrntkI8pdHCA SKPHPguXSkwiepHxRW7V PCTMAI4UfDZ4TSC6nDY6 Tp32LAXhRZFkiOMcPBdw F443DBPaDBbaZLAjMhXm ZXUdGRTZFUZRL5JIQprq PZNdsXTnKWMlNU1moWZ3 JS3kXSZxeVApgn7ugKCu yFPkG8raRT22GAboQJUi HK5fAZJqlWQmnAVunCNb dFTwpN54geViKVrmWXCu toLyir8rETCfsxAdUJTl cmVkIGFsdGhvdWdoIHRo XZGvTBOvEX2gRZBkdWLs ah3xjZThnJOgZ3raBC46 UWRgwOJnluT5tEGfxH5q c4ghzTbkyModv5TcUUAi VVUgc0AquItzKQUxaAHb q2FqUPAonBiiL2MmD4xf w57bNxksVKYdcKNmLTqg SLGtpgiqKHDGLqLRG5fF LCBVTENFUiBESVNUQUws CRDZPjSUEDGFL5KFTKaz iRNwHDBkWO7OGEUDNeIf X9WKLA1EVVAuT5BAMOQN VSJMEH5AERCzHNuysz50 WLV2u1ywgYVuHFjwAuar mGZsfvS7ULiSMHNNHTuF HtFiXJ9nYFcME3MPSJyH XxlqMWZ2D1fzdKC9z9xc fJTxn5g6XYkmMKR4tHeF VZv2EXHdTLxbo6vwAVIb YWyvv9IlCRhVKCDFIK8P AD8dmWH4MQiJWMSAWTxk LJJ3I0gtxWF0g3znqKWb m2v5VIqfCMX0sNbfiJMs hsmgAYUeUaIvBLFGOK5N REVSQVRFTFkgRElGRkVS DN8ZZWSWESLjBSmrfj61 UKX7g8zpgTOlNHmlUudm mWAdjqG5JWeTBNOSDLhM EiOjMB4gLTgPA6ZOTZrH CywxEQacIUy4cYZ8b7uw vAZit8o9EKgqKJC8eOBE SCVUCqCaL24gVWyRKTIQ LRRiXQ2LFMKULrmDTQJT WZriETNTK4lGn6cooSBl YJwiCwbqvSAcfwW5RGpB TVKRCNqYJnLrMX4ySEsY Q7ABLbG7Ylg4PFd6JOh2 fXtcZmxkcnNsdCBcJzFj xT8woSnkwH9nFlmxnbGw UXczH6LWUO3BBTBeQIEw cvigCYLzXvRxQv77FEhn It9oUHDlHMEjpAIcCCK2 sVSzhR3dahCgiRQuq8Pe nzMoysSaUUQsKEHny4Lq eYeyOQIujWOub5RhAFOb cBaiY9IdV3cjj84bLYGg si0yvGDoPZFgmCAiyWSh YR4pJGfjxyOslBZ2PXDp QERmOq6gDLrjCDQgKLXz RsV9VKRefZfnrhJmdkBv x1cybk5baTWkWYSefwkf uBI0OWHnMqd6FfUjyLlg Jmo0AJoyIEndPPTuLVB4 dr0neZCubDs8AGXhY98i TNPobMGgOlvqM29uWRBD h49rCTLOMZNwVnilUCJj nBfqJEIxDPqmbQ5sERTj XHBhclxwYXJkXGJccGFy VIIhJ42ODtXVWCMZF16P FXWVGDTMY9UUF7dAGQT7 MZRghBT1KO4eQTznMHlc MYKfMgp6MNW9Sk2uDqA7 NKM4gDV0UcYVCENAYNmQ Q9GnMXSUCOFTSCHvSH7E OOlPRMYURMNBS46BJQKI LQSGA0MRK2wDFVoGGSOT KFSXD52ZIALNIHMOH0AH NMFXRVIZYRrIXFNVHg8W EWPRYHBHAZ5EIYwHBkQa XHtERVJNUEFUSFNDQzoz VYK3B7x6Itf9OPGkgUGx lVrxLFMrgD53Fhb1CAxx hILbz8JOJd5KMKRKF8LH IjR0LXNrSA07UWvjPBCn rKS5pY5iijfjulyhQTlg KJb3DHKPYSYSVU4WHJGU L26IAHQYABQGC9IRNQSG YjVYANUVK00LFHOWTMZR H0LCT6gAPKYTFqWFSFSF O58LSKQVNSXKA6UQRVEH MIOUTpHDMiWATW9ILONC PHBWLI4MKRkUQwFmVDUC C4QDIyKOO2xdVDWMMMFI SSJgQA4UxC== [facility] Work Phone: Pathology report gross observation Narrative j1dwuXWdLYZprLYcKErl LxuhybUdUBLuoTFoY5Mn eviaJDkzHA3qIT2rgXda xFKrjPRzFYKrJsYuh0pw z693rTLfd7uzZCMSfnyp xYy8oLevL52pf0Q3Hztk U03jwEWrCWV9YBGqMQFn mTLwTHCcGIZ8DCAbdKWb Q3otDOCuKT0zaluqPHtt YHnmNMDugAW4ITAguFQe B1CxINBiAQylHFUetwa7 GlWaXv9uhAFddArnEHuo UktjwXrgi3UpaATjIZnb IDUxMDAwIFxcbmggXFx0 JHAjRYxqkIXjNY1wvJul IpbolNahy0ZtsCUkGTmi DAQyXOOqOIebBPJlP2GP WLWcMfL4TIF8PEZvMOk3 KGh5AB5TPxCxHLZzSfP8 ABZ2OVJuTMs5OIneHI9H OJNwFDF8ADVcNvYsXLBz OdWoOMh8CCJlYDbeziQg BEvfVkilKRtfK98pyVNn ZFxwbGFpblxmczIyIEE6 XHBhclxwYXJkXHNiMzBc MIXpW1psLxEzIFWlHbOg UGYlR7tyAFDkUZFoYSdp QJYvRcEfQWViD7VtbxWn GTgsDKHise9lqFtuRKgo ZUPcHdU4ANSjsXW2JN3i YUVsXDBxMN8dZEKsjW7j ICBJdCBpcyBccHJvdGVj sBhsXcdloGL3KRpuWime aU4uwNMKWQITCpkZZffc frWoGS6LFFIKStKWWT47 KohrIDx1ANzjhXveMqlj dnQtlARyJoJhjP62UO16 WVMlXQjul4qyVAFmSWth b0RbRVcGBOWCKK8VHJ1v dDX9BOyUIGICHPccQIHz RIeslLL0q6vlxTQvi4t9 XHooJIO5aAiscGZesopd exPxHPYdnwEvi9dgyz7b GDrnUIAxw7HvuJK1AYBj YpvgJBF4PQFnCWTmKUJj eVDxHSCuw7UwJ7I7ZITc JHtwh3fmBXKbMIhbg6Hr TYsWWITGGL1HAB3qiOB5 MBtCMARSQ4pEgTT8EpM5 oTU2Si18LJCbDXWrwRVw PHanM403O3mauF8rsvky NBi1MCKrXSwil2bnUUVu RZwcf0GfYDaSWPDUYJ8U QM0seKS9FCgMRLCRDJip NWNfSJwfwAH0w9qtyHJt f1a7ULwdFKQ3iJpzuEQz blxmczIwICBpbiBzaGFw LL3iLSi7AKsfdrEqlNCn ZGRlZCBccHJvdGVjdHtc ZliiqKN3KEamDejwjM7v dCBIWVBFUkxJTksgbmFt GY8VWMEVMuSAYR17Rjmy BgI2H4uviRmbUllpmfYx wIXbBtFulC7ufvA7c9Me k9xelXUoSAinUmxfkBAi anU6LKvGUNKXHPlSOsKb FD7mICiUO1NZOiN5Yhgo TlI6W0nunEjuIryvpqPi iUJcQuTfuU9prVudqX3t ZnMyMCAuICBccHJvdGVj dCxlHpyoaNK7HBhrWdfx cH1daOEGZLCDKusRLkbf yiXbYJ0USVHJYoXLOM37 Ifx7Uzm2OLy8zVdyFlmf fcVwwROoWwPqsF6LrQWs f2WxZ3fuNK7bc6YwFJtm y0ZoEgksZjrlxBX5DAzm AtmegJ3dxPTYRUYYCknC ZiwgfgJpSU6KFLCHKY4I nMK1JXC1eGY8YH18NULa CITdrPLjQLlgC088YJIj BFaaLCPwLuXuDNFxa8af rEwqy8DthHBsYR7rwIAu f4ghZVDbvIVzRTA6FYgq aWQgNTEwMDIgXFxkYiBP UoQrYcElAMW7UHL7NbEy UEr5DEgnG5RKDJXxBPG1 DxI5LEh3UoE8FAz9HKMD Um4wZJD9GeD6WvU7VgZ4 NRL9ICGkUCUmOoPqNZJm QULmKObsxEKgRM5vWPkn BqI8SSUnagDhd4XpAHYi AJGeJ5meSiJhNRsqlwEq SWO0JCZkaaasVPSeMYFs DdHnECMxG1ayPgBmEYWi ATzeVCRyXiKgZILpU8Te puHjYCbrWKLydg8riCmi NCggKEHfOsI5TFXjgDZ9 IS5wWVBhHNHrGB1nRIOu uZ0hAMLQnAFjprOqcMMg zNMwhMvaNdfbqBH4BFlw YuihmD0txWKEJJNTVrzZ HeszcvBjQT7LPIJTLkAV ON91BsujNJd4YNj6mTxt LzwsleMvuYOvJjCueE81 WY59NZGxWJunj6zhUZOk PMbgv9QiCPzOBCMGHV6I EI6ttKX5RPiVNXWFYQcy HDOhQXi5oZM6i2mjjUOy r7p1NFobBEV4uWrxrAGp ouiutkYuVYXpbgCci7rb lw6bEXnnCDSix1McfMA1 SYNsVkcgPCH8FOTaWBLC dCBpcyBccHJvdGVjdHtc JfjnzOW7LHxbJqpvvF5w dCBIWVBFUkxJTksgbmFt YC9RIRDYYeVLUW16Uyrv XKk8Wgc6lAfbBnhyrhJg uFTvXuVbfX7joSpylqOh aSIjgNkuDynlwXG6OQli UpktkF4uoDATTDHCTvbH UcqazzWkEU9CHETROH6I oJE5TpA1vRU0Hb40DSTv VVEcdBEqPIlaJ814DAOz YWluXGZzMjAgIGluIHNo KLTtJcDzXAHku6VpLXJo JzVwKQGjFSxnux86UHB4 c1szxRSjHYbzDkwfsBJl mkN7BNzKTZDQMPzNYrAk FY4tPQuTH3SBLZvDMuno DQLtQDj2kNa4q7ljhCCl y7b3QZyjPVH9wQwyBWUj mJ10AKHwCQdsk6kiCCXf PIaht7LiRVfMRJVJGI5Y EQ4pbZE9JPnHNNEFXGif BMUsQMm8qLu8k0hfiZEg a6m2KNzxYVE5iAshnLAi dqidgiQnDC8uKJxvtn86 GFJ8m7aqsWRjTKivUaba qUBhhrY2ZIjKZQOZIOlO WxVxPL4bFHfKE2UOAQaH EtksZJirYFa7wQt4p4um zTKly9m6TCnvTXQ3hMXy AONllNLfxX1rueP6QRYe yL4lVRBzq0sthEIoGFig NhuvcXYakqC0QFpNWBFZ AXdFJyDsRD7cOGcUJ2KL EdH7Sji0Nfl0YQh1xYlh GgzdbcCsoQJgVfAdaK0e oGygqO6rFyLwPWGtMHhr KUOgsSGxDGqnJPEdh4Tu MFxlcGljWHNhMzAgVGhl IHNwZWNpbWVuIHdhcyBn gv2ok9QoMYY3WSnnbo82 AYV1w1vshZIpGPefKcqc lBMxppN2UXdPZVWUNNuH WcJpOP9jGRuKJ9TALMfZ Qxb8NEE0Ehu5eZb3c4wy jFThc4c5CQyzSDE2gWJc bMxsiEM8FVYIfVVzKX9q MEbizp13IPDfBKosb4js JIQnEOumw6ItRVqQILWD FX4HRA5qsIP4CVsOARES CMl6WET6Jqy6tXk7c9ea fTAtm4t4EPogDRQ5xKcd tLHflefuttCgYFT4NYCt xDBpQJD5JF8yrRouXQFz O3OxC5NngsR5TAGptrt7 OLAFROJJTFrDVR0MFFFS FCMQXH4BOXxDPmEpNCYo TVugABSiZttoAYq3Uz2i IkL5TzQitTN6Oa4mEFzl PTy4WYLpPhdbEJn6QA0a NdB0BpU5wOJ7Yo0bFGKr XBs6NKKuWci4Ziz7IL8f MqLuCYydsWn6AlEYYANR NJeZP4OfMMOTEODGGHYx BS0EYGpCVWTNMJXJM22S HCEOXKYPF8ECQ9uUHYzD PLJFECXQG35SGFQFDGJO U4BDFQCOYUODYWsDSNQP Oz0XJRSVHRRQXO0PJFnA RbZiATkeVDEupCO7xTAe cB5aCsC3DcF3UF0dPQfn LRGqcRK1lRXdZCBoUaA2 ShQ6OM8wQVwnKTXvwUM7 yRCnBbCbPKHiPxS1QbNw NY54KLnmIWJpdHF3nJlz hxynWRqgQZb8PGr9NLJx eZZbhBvdy3fdkmikSDUq KKl0Uwn5LAPvdAKwdAdu zKAdMRsaVRJqDSw1B8a0 ZGVybXBhdGhlbWJlZGRl YBhtYZSpKNp9WZs0PHXp lSPbmVmfqpt2Qnl3Wlsn zBkvu8Mcir3nBVDrZ7Pi j7Dcivl3KMC5Cqr3MKUR HEGUQW2JUENQH15XLMOX HCVLG1SVYDWEDpDHDXIA V84UBMBKQRCSB9KMF6eF EVBOUjZEBQYLK01COHDZ TLWSQ1WMJJQDNRWDBuPD TdFVXU7CBKVZWFOCOU0Y WAaNVhWlKCTZB9BHFmOQ S8fbGSCZHRUQKKUvHZ8M fQ== [facility] Work Phone: Pathology report microscopic observation Narrative Other stain b1zqcLIpBYKduOQdNMov DxfzxnBkKCIfeDTbQ8Be jqooKJwwGZ6rLC0ydQtf wLBglUMhXLNbNaCma5ag r296iMPhb1kgGQTHbmpi jYa0oUcfV17oh3F0Rmhh S07erHKdSYK5OVRkRJLc pBDoELEpUVT0WMNvhAVf G8naLDVzAL8jwbhkYScx TInlJKQzyFX8GHFssKJb Y8QmAOYbTGekODOwoeq5 GxBeJs1dbFOhxCnvIJti YXJkXHBsYWluXGZzMjAg LH2xJLwofe9dV86joAQd MNuaaPsxLBGat72impE3 ZWFscyBhIHNwZWNpbWVu CLGuMSBpOAc4KA3txlHh bnRvIHRoZSBkZWVwIHJl dGljdWxhciBkZXJtaXMu IEluIHRoZSBzdXBlcmZp F8kymRGlfgAfOIBdoBSe ZXJtaXMgdGhlcmUgYXJl SUjviJTdWHYke6Uez8Vx GPPflu5luBXhpfR5rZFu XKUcqcDdVAwvi8UpCYFw plx3YPKhc52lNCSssjwq HHAxWq5xDWbude7iH04w pUKpBI3adWqorPCnj0bk r5NyzBCcYYq4lHXpEMaz r2i1pQQtFgKiVEVlmOpn r7U5kFFdKYDbQONyJTYv HTWbv94ynNQ6YRHzx0v0 dGJ4lSMhODCcJEWzjVgw IGFuZCBpbnZhZGUgdGhl ZLLgde3gydSeklWsv92z AVKhAEDbk0uyosDcCJPe ZOHndMWtuiMkKjRgAV4j jxRpEYFmgKNuLE7vGRGo ocEsAZtmk8KzEMTkjmx1 JCUuu40wAGUsJOAuCTBv zgYiWFbpVQGre6AgEVKj qKxpXCNrCJAnh84daCax DIMhUQPjHMSjCBYlxr9t IHRoZSBzdHJvbWEuICBB dHlwaWEgaXMgbWlsZCwg KT7pVY6mbT5xNGBhZOOr IHJhcmUuXHBhclxwYXJc cGFyXHBhcn0= [facility] Work Phone: Pathology report relevant history Narrative t5gcbFZcXEDpjWIaEGva JqmbeqSeWWOjyEHoO9Ab wmssQHbbXK2gMD2bjDnb oOThqZBqBWRgNnNnu6op d347xYGyt3ymUVHUbkft tOa6s8weAHZMRKffXQXF OCs8dClzI09fp2M8Myug J3zaPSImZQesMHVhLGvd zKNhGRr9QSJqmXLlxsGp MiCeCYKfnTEedRK3TYPi BG3tntmaIYhnMYynPDRt xlA7WVYvlGSyW8MrFLRf KY2pfnjbEAX3HMgtQKEl NGA6UnNiYQRfq1Tztfe5 MjBccGFyZFxwbGFpblxm SSfnepGxNNSnDFIFNW5o m0Nux61nGQgyX32la6ci HuWFkTS7XEQsAUZuf9Jd z2AuRLDiLlHiHGIrvebi HBMiyDTfLFBfaG0oY3Ch FOjje9YbiurhZ2EaK6rc xZYDUCA5LFL9JdIhbAMg bmljIGhpZHJhZGVuaXRp cyA+BpPqhRZtutWsq81a dyyvmSKoYpS6iR2vw0Jl EJ9sgeT6oSKlHLUaC6QP HZ3tvZPvvNM6cAOqpONa zFG3uAtbbNBzc3P9pHDc ARWgo6VudLDmmeocKSEz DKIkRVucEqKtV29pxUal WPAkjTl6KJTvQZRhOU7d JOhgIpVeVzS9zK0xb0Cj w9t5cJFhhPYicYLbr64h tJvtozGckwW7yFMhmYOh dNLwvSQOV1KlyTGxgX== [facility] Work Phone: [facility] Work Phone: Magnesiumon 11-20-2024 Magnesium [Mass/Vol] 2.13 mg/dL 1.60 - 2.40 mg/dL [facility] Magnesium [Mass/Vol]on 11-20 Interpretation and review of laboratory results Normal [facility] No Panel Informationon 11-20 [facility] RBC shape Nom (Bld)on 2024 RBC morphology finding Nom (Bld) No significant RBC morphology present [facility] Renal function 2000 panelon 11-20-2024 Albumin BCP dye [Mass/Vol] 3.4 g/dL 3.4 - 5.0 g/dL [facility] Anion gap [Moles/Vol] 15 mmol/L 10 - 2 0 mmol/L [facility] Calcium [Mass/Vol] 9.3 mg/dL 8.6 - 10. 6 mg/dL [facility] Chloride [Moles/Vol] 100 mmol/L 98 - 10 7 mmol/L [facility] CO2 [Moles/Vol] 23 mmol/L 21 - 32 mmol/L [facility] Creatinine [Mass/Vol] 1.25 mg/dL 0.50 - 1.30 mg/dL [facility] GFR/1.73 sq M.predicted among non-blacks MDRD (S/P/Bld) [Vol rate/Area] 70 mL/min/{1.73_m2} - PINF [facility] Glucose [Mass/Vol] 104 mg/dL High 74 - 99 mg/dL [facility] Interpretation and review of laboratory results Abnormal [facility] Phosphate [Mass/Vol] 2.8 mg/dL 2.5 - 4 .9 mg/dL [facility] Potassium [Moles/Vol] 4.2 mmol/L 3.5 - 5.3 mmol/L [facility] Sodium [Moles/Vol] 134 mmol/L Low 136 - 145 mmol/L [facility] Urea nitrogen [Mass/Vol] 15 mg/dL 6 - 23 mg/d L [facility] CBC W Auto Differential pane l (Bld)on 11-19-2024 Basophils (Bld) [#/Vol] 0.08 10*3/uL [facility] Basophils/100 WBC (Bld) 0.7 % 0.0 - 2.0 % [facility] Eosinophils (Bld) [#/Vol] 0.43 10*3/uL [facility] Eosinophils/100 WBC (Bld) 3.6 % 0.0 - 6.0 % [facility] Erythrocyte distribution width (RBC) [Ratio] 16.4 % High 11.5 - 14.5 % [facility] Hematocrit (Bld) [Volume fraction] 29.6 % Low 41.0 - 52.0 % [facility] Hemoglobin (Bld) [Mass/Vol] 9 g/dL Low 13.5 - 17.5 g/dL [facility] Immature granulocytes (Bld) [#/Vol] 0.05 10*3/uL [facility] Immature granulocytes/100 WBC (Bld) 0.4 % 0.0 - 0.9 % [facility] Interpretation and review of laboratory results Abnormal [facility] Lymphocytes (Bld) [#/Vol] 1.78 10*3/uL [facility] Lymphocytes/100 WBC (Bld) 14.8 % 13.0 - 44.0 % [facility] MCH (RBC) [Entitic mass] 26.5 pg 26. 0 - 34.0 pg [facility] MCHC (RBC) [Mass/Vol] 30.4 g/dL Low 32.0 - 36.0 g/dL [facility] MCV (RBC) [Entitic vol] 87 fL 80 - 100 fL [facility] Monocytes (Bld) [#/Vol] 1.14 10*3/uL High [facility] Monocytes/100 WBC (Bld) 9.5 % 2.0 - 10.0 % [facility] Neutrophils (Bld) [#/Vol] 8.58 10*3/uL High [facility] Neutrophils/100 WBC (Bld) 71 % 40.0 - 80.0 % [facility] Nucleated RBC/100 WBC (Bld) [Ratio] 0 % [facility] Platelets (Bld) [#/Vol] 758 10*3/uL High [facility] RBC (Bld) [#/Vol] 3.4 10*6/uL Low [facility] WBC (Bld) [#/Vol] 12.1 10*3/uL High [facility] CT Chest and Abdomen and Pel vis W contrast Mp 11-19-2024 UH MMODAL UH MMODAL [facility] Work Phone: Radiology Study observation (narrative) [facility] Work Phone: CT Chest and Abdomen and Pel vis W contrast IVOrdered By: Ravin Hyatt on 11-19-2024 [facility] Work Phone: Dermatopathology- DERM LABOr dered By: Ashley Ramos on 11-19-2024 Laboratory comment [employer] (Report) v6orcABpMKZcd5coSTKi bGFuZzEwMzNcZnRuYmpc oGWrAFkztqMkNUofj1Il Z1NsDwYzJEcuycKaVPCn YclglsfcTUOaMRQ0kvIz XCFwLRefPVErOStsSu7r jEUcyCxtSpDmMNGkd9no pnKSLGjgXCICPFt2i0pb MDRcOsY2jFAmNJvtL8rc gtCulNBuL8Uns3HoFQf6 hA72FMRxpZ3axLUtQZvi wnAyLgE7XXefGFBhJgQ4 VBWmaOBmRHJiH5mrQGOz XGdyZWVuMFxibHVlMCA7 oRzzl6V6iPBswLHsiQne FkErDvFcPyHXr4LtXPn1 wUgxL9GyTQIgRxP8eMSv UGFyYWdyYXBoIEZvbnQ7 zU66JImnzwN1jBLik0Vu l54ti605kR2cqDOhVZM7 MTIyNDBccGFwZXJoMTU4 KRIzmDShG7lrFpBsbKMr G4IxDxTnfQBbT8BoAhFd jBYoZ4MxOpCjfRWhGJFk sUZ8WSitu561YGA4CzJv HJ7bQ7Zhi9H6vE9ueKRb VYYkbBFeWjQuCGAzla3f tKVmHBtyg0GdLAD9hsK6 xCBoyKRtZRHnUX56Yxbo f2AxImlhOPR2TZAcdfEq d6Cbb3agYuOjahWzK7du B4IfEIQcZYApAFJyPvYo pnLar4Bix4HjgVUurSi0 z8odAKSiFULkwNdwh2ij IDZ8XBZjX3B1fTCqt8vh UBkhLSNrwNE2ogI2RRxy HJKmgmK6npT2TCacFWJu eIX6icL0IUuhWBYeZcO1 huG1PSbwAMHeGGF6LcVe NWPml8WpygchSrIzk1Wv gBPqWLdyS55pz294MOAr qmWvE5uafNRjvsfpkTNh ydmhDXmfctS5RPKbAEEu YWluXGYxXGZzMjBcbGFu ZzEwMzNcaGljaFxmMVxk XoStQILnRFazL6gpUxSx EyXrZNKZtYD5qBEau5ge lnD8eOBbGT8pKABdgKXr ryKjq0B4SPY0rCSspH8x iPNeQQLcaWHoxnTthc13 gVIlwDR2CTCvVFMlrSSf rA4jWEPcXHLYjP4xuZTX qxDidvIaOLKsrWtxre6E eANagw8myAWtS2AaoUrq aWVzIHRoYXQgdGhleSBo UOHbFJHaruxau0AbDSKl oZPvX0KwAR2oOOJrbu73 [facility] Work Phone: Pathology report addendum [employer] (Spec) x5xwyRKqTBNeyBGjWUce ZgixvuCpUWDdlQUhK6Og keejATzqQP1yMI2ctNrf sTWsiYMfXHRiLlPzy8bk m615oWKoy5peHOTSdavm aQq9dLldQ59de4N6Fsqn C99lyTWtXNN0APChAOMu bXAkVIMsNYU6IVFvvQDl Z4rcOTZwAO8gkiuwSRyn VGdzISXyuVT7JJQkjSXd N1VkYUBzIWxlUYCcsvn4 ZfBnMh5gkMEfrIobAFsa YXJkXHBsYWluXGZzMjAg SDVAi52kdnXSFGQvd6Jh vH1iZREshyXnf6ouMCQq jd5hwotsfBUmSZMlxnAe zHLpgF8sSZPxlpV6sH2d GH2fUIHhuu1sV5KuayHl fCzed9PgOSWvTuDafpX3 kYHdrSpiz4B6BVSlZDKg FSPjkNKdUM8vZZIscVpq IHRvIHJldmVhbCBkZWZp fpy1nBIrMDNbzUleyECt LZKcv9TgvZWkPMciKUT1 [facility] Work Phone: Pathology report Cancer Narrative [facility] Work Phone: [phone] Pathology report final diagnosis Narrative g4bgiPUaQTRazNMaOJzs EnkvuwJbNAWmjSPkP8Gm gpzfQKbvAT5lVD4yoUmv qZItoMXkOANdOvFdo0kt a090rTGjv2piECQGwjym mIk4kQohT50is1U5Awbc R56rdWAkNQW0UKWhBJFo nIQmWSRyGCT8AAJrfHTr P3mbTFQqIH6lrgsiSYzi XLenJGKymBK3FFMpePZh D5WnEHPxGJwsTFNsymk5 ZmUzLl2hoXYqqCucYJvj YXJkXHBsYWluXGZzMjAg JV5bU6vYLrykKPwFC3da KEQOKlSFPSFMI0SZMUpp fARiNTLkUJ3HJJLFSpYz N8NPDD4DBLTbX8CGBEPU GLGSKY2CQGAxNGuvld44 KCD4o8mfcWQbXSfbRicu dPInxqZ3SSvDBGVKCZsO RqFjIX4uNFpFE2QCKPdV YodpAYG3F5csvPB4r9sf qGBhc7w2HRvhVXD8jNtD TYo0KWZlTKyll3nqRZPd AZmhb4MkOOnIPBTWMQ3K VN8idCK5HBpKFYOJBWal JTT2T4qufWB3p7klbGEi a6y1WMlwMNK9jHxyfLTr blxiXGZzMjAgIERJRkZF UkVOVElBVEVELCBFWFRF EtEDXcexRA4kTSqFVLBH KCZsPP4OMLMJGOODQIMP YDsZNtRXEH5UOyrMOeEd JW7qVKhJJ7BgQXnEQcDO VG3SWDQND2DFX29tFEUW QXJYM72ERV1DVBpzyHAu AWIsyjzaJCFTg17vVN80 OiBBIGRlZmluaXRpdmUg JQIxAAHhkGJeUQR6uKHc aW1fiiNaeDEatd72IYUz uSHaO9wzfRUqHWesAGIs DREvgkNyqAWpuWInkF9s dGlvbnMuIFdoaWxlIGEg cHJpbWFyeSBjdXRhbmVv lMRsz8K9AR5omEUwF4Km xTZvBGVogX3tbMWehVTi NiH8v7VfJQwwHYPzESVd q3HlrGxhMFSpoQZtr4Oi PUHvoTidN5CvV9dpx67o FVTrhg8jkYSsTPHghJTp fTNmAYQpprZ8bIMytZ2p dGlvbnMgYXZhaWxhYmxl LlxwYXJcYlxwYXJcYjAg Yc6uI8cGIbdnCMVYGQGY WFQUH1LIYxznFVQCO2rf QklPUFNZOlxwYXJcYiBB Z6YGWWsGU0hCDIGVROGL FU9LKP7SQDOVTPFZKIYY QyBJTkZJTFRSQVRFIChT XNYoS75ITHZMSPx2YXEb eqllTJQhIdFjX58uaYJa dDogVGhlIGZpbmRpbmdz ZMTdQJMhl6Exa3QlT1il jICpTW3pIK4cjKPzTVZv TJNoHISnwdAbHH92MLYh PKIkGTQbWYHdj6DwK2zo v06eSjA8qBUzfmU6wO4u KJ7dOZVldN4pHMDmKBKk HF9rEULfjimxKFUhoHlm SLZyDKoouhS9TNJvZqLr VbEiCBX5am9qsEUwkYw4 YLRlE83hHOWqoTBcXrgc JiCTQAXBRFZJBxTWP8wU LCBNRCoqXHBhclxwYXJk XDAbMAWckBWwAZPgD80K BtMQOHFHN66VQUFEDIGR I0JBO2fRYDB0PFNgtMA6 XMTINEXMQVpYN6NfWDGO JTUHFLOlIB6ATDgVXTOQ UPHAO62FUEOTEWVEQ9HZ X1yMXHlKVSHHEVUOV97T OCCYSUXVX0KCADIOXDKX QWlHPBBWAb9MPZYFBVXN FJ7UNNdLCbVnDVtDFTER BDOAGAUGQspzULK8W6n6 WLIBKEEGDG1YDJCIE75U DKGEVURFP3ROBUYNFaAF YWAMY62LTPULHBQPB2XY E5lWPSZHYvUJKZHJU12T JIMTFAAPE9CSNLGCSAEM RvPDXiCOHJ6WDNFGFDVQ CH6PXRvZZnTlNDCMA5AC BeROO3veWMOVWNWXEXOi RU5EfQ== [facility] Work Phone: Pathology report gross observation Narrative j7zciONfSVXriYFpCWcp XuapewGlWNJyqDFdO5Sx nmurETgvHD8gHQ3rsPwk uAZszICtFEZwGeXxv6ao m596lXDua2uxJBOMcthm dOe2kZhlC81yc9C7Hyrx P60nbOWrRZD5TESoGRLr vTOqEVSjZFP4HMRffZJh J9wrVHUgNU4eziynPXlt NTneKWRtjLX2XPWqaVEc P5FuGZDrKRnwVTLidyi9 DvCnGq4zhOIslDstTAci AiuksHpno3AtmNWoZEjj IDUxMDAwIFxcbmggXFx0 LMKjTTslqIJcTI8lcCro IssteFkte1GkmZCrMCho YLYiLXOgDZkiCWIkS2NI RYRxYcZ0MBIqFySnQWi9 TLd8PV8NUsOvPZPxFhW6 WUFxABByOLl1XRmsKG4A IDEzNzQzOTUxMTMgNTQy JtufXHq8LXUbPRbswvXc IFxcZmwgXFxuYyBcXGZy fVxwYXJkXHBsYWluXGZz MjIgQTpccGFyXHBhcmRc g1RuKGiarSogSPXjUlLj l0DgUZzfjCbjZZUrVaVr zOfomU2uLpNwEGEWWJVn lTTmODQvhrNzx0MqTRmn epLfjzJoXDCjhLX2QNlq NCBtbSBwaWVjZSBvZiBz s2hfBgNxXMJoiCAvPNPl c1PuB5A9IQVaIUpxe9ic AASfJPqwy9VrBPeHAYSC JJ1XLC5tbLO4BBgRUFSD T1uTtCU5FzC0wIA3KI80 LDQpMGXjnBMqZVjnU361 fXIlp4kdlUJvJFmyEqua tDLnsmC1SYuEQSMCTRsK CtGfRE8pZQeRO6XAZdZ4 ArhhTJd9CNvhxNdqNjvs vbKjgCPhHlRwiK8pwCbu rS7xZaDfSBIwzN2oL12e k2TbIHMWoIJrvoQivTSy uNKtaCziZbvemKM5BRpz IpddgA6zpPBLUQWNAvzK JwhxloDoIF8JEUYJLzGE MK42IrvyXBg5YigyfMhm VzgjbiMvzEKkJqVgvZ9a eWxpbmRyaWNhbHtcZmll kCY5NKybIbybuQ3xzIQQ KGEIAsaSWecjexGvFC2J GZHUHO8CoYW5QnR3nDC7 Kn50WWIgOHRxvZLrYOgh Y616VLPtNTlgTLChXgKa IGluIHNoYXBlLiAgSXQg u0JaKXUfSlIuZSTpOBdh ij42FDA3s3bqhBGlFOtg NccrfJUnrkM2FSaJQWFC ZKzCEdTxQL6gIHgDX4MK RUdJTnwzODIyMHwzfDN9 m5huhVEuv6h6OEimRKY3 cYccEUMkmH34SVGfLPsh l6jyQCWkQZjjo7ScNXoP MOZMKE5FBD5quMB2GGpB VEVORHwzODIyMHwzfDN9 e8xmfUJtf3c4PLduDPF1 uLldgFBqqncqpcUnVL3s BGtkqb01YLL0k0csuVNe ZYomZcpyePKuisV3STxN IRXHDFuGByJpLL3cRJyP F4PGDHbMOzwkLFfsHMq9 bXJ9v8kgrKXrp0f0LLja XMN9cZCyFNXzhMGanP8f zkC9BRCrnX1mIOWbp2lk aWVsZHtcKlxmbGRpbnN0 URxRFZUEWGkZUoAiJB6t PMiLA0NVTkD3Ofj2Jyi3 TTv5qRzdInfjgfUbqXFx MfCcmS4qtEgndD1xGyAe GOUhUOQog5xnoQoiu2Wq vGZyRD1amRVdv7blFDRm yZNlSTE0SAjtuEXlALRr MDIgXFxkYiBPVlIgIiAy ZVA8PUM8HdDgTTy7SFrl H8QXVMGcZQZ1BTm8IsBp FtZ6WWm2WDIBFd5zKEU9 CZY3NNA8UkZ5CQR9NCLe XHQgMiBcXHNzIDMgXFxm tXWuBH6hDGzrTaL7INSg qiElr6XhJSXbOXGwE5nd TjZhLWywunJpBTB8FOXf clxwYXJkXHNiMzBcZXBp T0cnAjOwNOTdATxzUYXu ByClTxOnHJy0LCUmsT2t Pg9xdFVxfD0qtIKbHWT1 WXqgMSI8ESGwlJ7wlEox O8Uhq5Rkv4moqt4iGEk9 PUsnEYkeoc34QZC5z2mt aWVsZHtcKlxmbGRpbnN0 BRvSQGEJIGpESyFaIM1u MOmIM8JIRFzNOcusZTQp WDc3yLJ9c8mdkWQky9w6 YLeeTNR3bQFuhatuIkqq mJH8BMxrLqtraI6mbEVL ONWNWcaYBihzfbFdIB0F UOFIPN0ScAY5WrP0iYG5 TR58FBCvNZGweAQiVLdb L968OPCjFSkmVMNlEtVm GNnzJPBcwT0gOiYyFRNa ePBlEJXvg3WnM1Q9JNIh NMxdd3hiAHUcNWvhf9Fz BArPAVDEDB5KKQ7avZO0 KWtBGPDPF9oRdKZ2GqE7 fFV9Dm06JPMiCTQpgAIy JRedS607S3guuY2sahdu PDl9GJArPQkkb3dsSTTo TQsxv2HbNEbYSOHBSH3G IV7oqNH4VXmIMLCLDGuh XEPmZIq7gMO6l0jeePKj z8x3FQolXCY7pZajcQUa blxmczIwICBpbiBzaGFw KA0uXJd3ZQmulmBvgGEa ZGRlZCBccHJvdGVjdHtc GpmsfLJ5FShnKjwevO9v dCBIWVBFUkxJTksgbmFt GU5GYASFBpXQJG84Ojoh WhP6A9d1iPqwVufqdeWw wOOtFkLooF7oebV6n2Vl q7ddlKGkIOehCoohqZOd pxW7YVkHXYEINAsQCdLv CZ0mYUuIX1KTWkY0Zuax PvH9F8y1sCwiEhdegoEr xVEgWyJowT9smNdfaO5l ZnMyMCAuICBccHJvdGVj oZbdVwnhhMK0JBoySsap eL2azHXPBIXOKwoQEive dyRgDB2KXFUUPoSKRC56 Gxu2Wty5BWg9rYveJder fiAzgLIySaZonB6HnTOe c4LiV5zyAJ1fs8FyLErk l4ReOjmmYpreoAM6OMvw LexdkR4tyBRTBJZRZcyP CxgwyeOyIV8LKSXEGM2L uAR1BXI6yKp2GS07ZNFx VEBriDFjTVrnN174UREl YWluXGZzMjAgICBccGFy XHBhcmRccGFyXHNhMzBc PZWnR7hwOQOaJCXrOOJj xSTkeV2yggT8OVMsV9Sn f5GlFXXprJUccYOxbICb dZmwTrmikZW8AThyIpqd qD7hlDFNKKIDJxmAMtvs lzXyGV2LKCAOAkIBWU66 MBW4NhH7ZJn7pLyxXiqb ibUqiGEuPdUmkF4HRKF2 cWNjNRIggJkpesTyw5nn aWVsZHtcKlxmbGRpbnN0 REpOTFWHNBwFFjPfWZ1m EBbLX1UIEjC8TSE2BaJ0 PXz5tRcgQeiqupGwwKYy ZpBkyU5bhLzesX4iZhMi IFVwHPidJUAcU1RtQ3Mh pjZ5z4ygsNvki8FzyYGd VW0yzPBiMHGnL89XRoKO BFYDN43ESFDUZXVBS9TV C4nVMAT0QvG1oNO9CM2y ODIxOXwyPTJfMzgyMjB8 Fs2kZxK2KLV6wRV4PO7h IFFqKJm0TXQdSvuzVBk0 Gi6vEtJ2AcSdsDt9Sn3a MJgvMNx9DRVkYHU2YbA7 BN7fQTCPGHSXBJuYKD1F WTQGUTZYSR2EFnCiQ1fW RENBUkRfTUVUQURBVEFf WoBUSQ6tI8rFMKEJCkLd BPBNIINXYXJqLQ4LZUTL QMLDZD4BNJAGE20DNGTM MIXEQ3ZFA8lTLSHqa4Vi ma7hZMDrM61af7N2Hbjq NBcbnTJtj5Wsxz9gRIWt z6jtpGY6NrezDLmkrARw f2Jrui0gHAXyUY5wXLOl QSH3SqxkFiHrnTUjk9Zk df8qYJOkpR9mThN1COE5 SG74BQgaNIHbyRS1hDWa uW6gXeX8RqO6MS15ZViv YFIllJZ0mHChPHTeZoG9 YoS4JH74QJaqSZWpzXJ5 lEDpFoQrQUUtUhK7QjTz UW00PZpoRMTmiXD9yOgt kzlyBUnhKNo6LSt2HERy uJKujNzphy3hc9ZhMsSd LVcuZZ4hLXbYB7XKG7zM URYtCBDRJNRFEUFlRY0O PBcTEO5CKZVsMXSROBYS RRBkEsELTM4tTAbKAC7Q ZHNxBDBWCONNBPQnUD0H GVGTUF0TTMHNVCIKO79Z UHYZNSYKK4NUL3iVCCMJ BHEXJaVSUzWJXX8YMJKO LVQQFX8HCqP2 [facility] Work Phone: Pathology report microscopic observation Narrative Other stain i4fboJQaIBAhlWHjLDan DbcewjJjRKVdjMDjD3Ou cyzuBUltCY1gBH9goMjq bNKpoAFoTPZnYnHdw0ri l966hSRlh1jpBHSBjjgc dLf3gRqkZ97se0C7Bxtj O95tyROrDBP1WTQtUUDq xMMjCFOiTMH7GEDvfIHw L9vbAAFsHR5olseqFTyp CZjvPTJjrNR7URLzsISw Z8RzVGCnJKezIREqqyn8 HtIeOn0tyHOriAgmZDij YXJkXHBsYWluXGZzMjAg PG8sMOhyOOS3tuRcMFVu s6AkmFQlIVAnOAwxLPSy qoKmvu4gbRTfeBcocAKy bCHmFARgnWgvx5C3kDMw dOAhID3jxiD3cVJvBTdv PVItvCIthFPrfStns27k ZL26W9vxVGYihWmgm28e ulFkaKOxRVZhbnLtn9Tk MFBlwld7WTWeu71kUEDv ujkfOKNwFv6uROykZYqs xUX5e1g0gBjwEQDoIDAH n2UenaXhhGAcqiLoOOVd O7Kkg73xTK9qBHWxWDLn eP4ncEYtxY2ly3rjp1Ar L3luYK9exbU8NUBjYDCz cJErkp9fiDWjU4KayUdy t6itCWmooXrgEFLcJF72 gnSrPUCqfST8LSYbRt5s fKmufZejnmRie4WbOT4x VGhlcmUgaXMgYSByZWxh hFc6SBi3ALQbccEdAMCm mDNeoqneUgRpg0bwoEG6 lS0zBSCqT4SprPVcyS0j cP4mDXtsnvOlxZPjc9Hw NGEjuQUrWMknrR9pNZGb oDBqbiVvk80pphJaxTd6 LKEvdna9QVPmuKjcceAg zT4fbY2gbMMaaOVoyWMx YyBpbmZpbHRyYXRlIGFu ZCBtaWxkIGRlZXAgZmli ww8ukLRcx5b4fOBih8Cy iTVxXIxxv9Q0gGOxCJZp p6DedM5vgQQgGMVrkroe YXJ9 [facility] Work Phone: Pathology report relevant history Narrative y0dnnEFoEHHwpVQyGPsv WtypguEjDHDnqASbD7Fj fzotDMooOD9kBW6acGuz hJCdyLLvRWEfHfFrv2bj i394fCXrh5pzCNNEfeya fBz8z8muAXVIIZmpTCZC ZEt4hUllZ05ww0Q8Stpv N4lgVXJdFCgbFLRwGOpt nNCvWYq3XEIqhVUoqrVj OcToINSavOFteUA7QQIs HG7dtcyzHTbiPMlgRUBw xhF6GBHrqGLcQ5MqZODm RZ9hmjtcTXE0YQcqNCFj UTZ1GkLpRLEig0Igdhe8 MjBccGFyZFxwbGFpblxm ADbvcuPxCEHeHPFXMR8p b3Xki23pZMwwP90ya8af QkQAdYL0RNDkPRDwx1Vp s1SeKXBdUiNjXTWavggf BJUruCLtSXWdzX0iG4Bk FMszc9RrihhiX9AnY6ef vZNBAQE8DMM2DmTLfJE6 aXRoIGxvbmdzdGFuZGlu GhYqhKKyGNFsxoy5uXTx m5LqkPrmWGN9iASyO1gs IHdpdGggYSBuZXcsIGZp qz7sKUYftUieKC4ng1Xx rRlvwCHzeh3uTZFykdXp TZD7OE9hhhYrWXumaXwi IMy1ifNsWKVcEBasQHUy IHdlbGwgYXMgYSBjaHJv hqmcKYLxU0RwQR4oVKwr LzSrNgH2xX5dm8Myg5i6 ePHbqsC9dvH6XOHsTs5t TNIuESNftRweJ5iyc85d TdFPEkF8ro2tKIIggj7g fC9asnE3mLFlur0jpHGe cA70kvXqMTprJFPhzaJt dm4sAGvwWZT3 [facility] Work Phone: [facility] Work Phone: Magnesiumon 11-19-2024 Magnesium [Mass/Vol] 2.06 mg/dL 1.60 - 2.40 mg/dL [facility] Magnesium [Mass/Vol]on 11-19 Interpretation and review of laboratory results Normal [facility] No Panel Informationon 11-19 [facility] Renal function 2000 panelon 11-19-2024 Albumin BCP dye [Mass/Vol] 3.4 g/dL 3.4 - 5.0 g/dL [facility] Anion gap [Moles/Vol] 14 mmol/L 10 - 2 0 mmol/L [facility] Calcium [Mass/Vol] 9.5 mg/dL 8.6 - 10. 6 mg/dL [facility] Chloride [Moles/Vol] 99 mmol/L 98 - 10 7 mmol/L [facility] CO2 [Moles/Vol] 25 mmol/L 21 - 32 mmol/L [facility] Creatinine [Mass/Vol] 1.15 mg/dL 0.50 - 1.30 mg/dL [facility] GFR/1.73 sq M.predicted among non-blacks MDRD (S/P/Bld) [Vol rate/Area] 77 mL/min/{1.73_m2} - PINF [facility] Glucose [Mass/Vol] 105 mg/dL High 74 - 99 mg/[facility] Interpretation and review of laboratory results Abnormal [facility] Phosphate [Mass/Vol] 2.8 mg/dL 2.5 - 4 .9 mg/dL [facility] Potassium [Moles/Vol] 3.9 mmol/L 3.5 - 5.3 mmol/L [facility] Sodium [Moles/Vol] 134 mmol/L Low 136 - 145 mmol/L [facility] Urea nitrogen [Mass/Vol] 15 mg/dL 6 - 23 mg/d L [facility] CBC W Auto Differential pane l (Bld)on 11-18-2024 Basophils (Bld) [#/Vol] 0.07 10*3/uL [facility] Basophils/100 WBC (Bld) 0.6 % 0.0 - 2.0 % [facility] Eosinophils (Bld) [#/Vol] 0.4 10*3/uL [facility] Eosinophils/100 WBC (Bld) 3.2 % 0.0 - 6.0 % [facility] Erythrocyte distribution width (RBC) [Ratio] 16.6 % High 11.5 - 14.5 % [facility] Hematocrit (Bld) [Volume fraction] 29.9 % Low 41.0 - 52.0 % [facility] Hemoglobin (Bld) [Mass/Vol] 9 g/dL Low 13.5 - 17.5 g/dL [facility] Immature granulocytes (Bld) [#/Vol] 0.04 10*3/uL [facility] Immature granulocytes/100 WBC (Bld) 0.3 % 0.0 - 0.9 % [facility] Interpretation and review of laboratory results Abnormal [facility] Lymphocytes (Bld) [#/Vol] 1.69 10*3/uL [facility] Lymphocytes/100 WBC (Bld) 13.7 % 13.0 - 44.0 % [facility] MCH (RBC) [Entitic mass] 26.9 pg 26. 0 - 34.0 pg [facility] MCHC (RBC) [Mass/Vol] 30.1 g/dL Low 32.0 - 36.0 g/dL [facility] MCV (RBC) [Entitic vol] 89 fL 80 - 100 fL [facility] Monocytes (Bld) [#/Vol] 0.82 10*3/uL [facility] Monocytes/100 WBC (Bld) 6.7 % 2.0 - 10.0 % [facility] Neutrophils (Bld) [#/Vol] 9.3 10*3/uL High [facility] Neutrophils/100 WBC (Bld) 75.5 % 40.0 - 80.0 % [facility] Nucleated RBC/100 WBC (Bld) [Ratio] 0 % [facility] Platelets (Bld) [#/Vol] 785 10*3/uL High [facility] RBC (Bld) [#/Vol] 3.35 10*6/uL [facility] WBC (Bld[facility] [#/Vol] 12.3 10*3/uL High [facility] Magnesiumon 11-18-2024 Magnesium [Mass/Vol] 2.19 mg/dL 1.60 - 2.40 mg/dL [facility] Magnesium [Mass/Vol]on 11-18 Interpretation and review of laboratory results Normal [facility] No Panel Informationon 11-18 [facility] Renal function 2000 panelon 11-18-2024 Albumin BCP dye [Mass/Vol] 3.5 g/dL 3.4 - 5.0 g/dL [facility] Anion gap [Moles/Vol] 15 mmol/L 10 - 2 0 mmol/L [facility] Calcium [Mass/Vol] 9.9 mg/dL 8.6 - 10. 6 mg/dL [facility] Chloride [Moles/Vol] 99 mmol/L 98 - 10 7 mmol/L [facility] CO2 [Moles/Vol] 26 mmol/L 21 - 32 mmol/L [facility] Creatinine [Mass/Vol] 1.22 mg/dL 0.50 - 1.30 mg/dL [facility] GFR/1.73 sq M.predicted among non-blacks MDRD (S/P/Bld) [Vol rate/Area] 72 mL/min/{1.73_m2} - PINF [facility] Glucose [Mass/Vol] 91 mg/dL 74 - 99 mg/dL Uni [facility] Interpretation and review of laboratory results Abnormal [facility] Phosphate [Mass/Vol] 2.7 mg/dL 2.5 - 4 .9 mg/dL [facility] Potassium [Moles/Vol] 4.5 mmol/L 3.5 - 5.3 mmol/L [facility] Sodium [Moles/Vol] 135 mmol/L Low 136 - 145 mmol/L [facility] Urea nitrogen [Mass/Vol] 14 mg/dL 6 - 23 mg/d L [facility] Basic metabolic 2000 panelon 11-17-2024 Anion gap [Moles/Vol] 14 mmol/L 10 - 2 0 mmol/L [facility] Calcium [Mass/Vol] 9.3 mg/dL 8.6 - 10. 6 mg/dL [facility] Chloride [Moles/Vol] 100 mmol/L 98 - 10 7 mmol/L [facility] CO2 [Moles/Vol] 24 mmol/L 21 - 32 mmol/L [facility] Creatinine [Mass/Vol] 1.28 mg/dL 0.50 - 1.30 mg/dL [facility] GFR/1.73 sq M.predicted among non-blacks MDRD (S/P/Bld) [Vol rate/Area] 68 mL/min/{1.73_m2} - [facility] Glucose [Mass/Vol] 95 mg/dL 74 - 99 mg/dL [facility] Potassium [Moles/Vol] 4 mmol/L 3.5 - 5.3 mmol/L [facility] Sodium [Moles/Vol] 134 mmol/L Low 136 - 145 mmol/L [facility] Urea nitrogen [Mass/Vol] 13 mg/dL 6 - 23 mg/d L [facility] CBC W Auto Differential pane l (Bld)on 11-17-2024 Basophils (Bld) [#/Vol] 0.06 10*3/uL [facility] Basophils/100 WBC (Bld) 0.5 % 0.0 - 2.0 % [facility] Eosinophils (Bld) [#/Vol] 0.4 10*3/uL [facility] Eosinophils/100 WBC (Bld) 3.6 % 0.0 - 6.0 % [facility] Erythrocyte distribution width (RBC) [Ratio] 16.8 % High 11.5 - 14.5 % [facility] Hematocrit (Bld) [Volume fraction] 26.6 % Low 41.0 - 52.0 % [facility] Hemoglobin (Bld) [Mass/Vol] 8.3 g/dL Low 13.5 - 17.5 g/dL [facility] Immature granulocytes (Bld) [#/Vol] 0.04 10*3/uL [facility] Immature granulocytes/100 WBC (Bld) 0.4 % 0.0 - 0.9 % [facility] Interpretation and review of laboratory results Abnormal [facility] Lymphocytes (Bld) [#/Vol] 2.08 10*3/uL [facility] Lymphocytes/100 WBC (Bld) 19 % 13.0 - 44.0 % [facility] MCH (RBC) [Entitic mass] 26.8 pg 26. 0 - 34.0 pg [facility] MCHC (RBC) [Mass/Vol] 31.2 g/dL Low 32.0 - 36.0 g/dL [facility] MCV (RBC) [Entitic vol] 86 fL 80 - 100 fL [facility] Monocytes (Bld) [#/Vol] 1.09 10*3/uL High [facility] Monocytes/100 WBC (Bld) 9.9 % 2.0 - 10.0 % [facility] Neutrophils (Bld) [#/Vol] 7.3 10*3/uL [facility] Neutrophils/100 WBC (Bld) 66.6 % 40.0 - 80.0 % [facility] Nucleated RBC/100 WBC (Bld) [Ratio] 0 % [facility] Platelets (Bld) [#/Vol] 639 10*3/uL High [facility] RBC (Bld) [#/Vol] 3.1 10*6/uL Low [facility] WBC (Bld) [#/Vol] 11 10*3/uL [facility] Hepatic function 2000 panelo n 11-17-2024 Albumin BCP dye [Mass/Vol] 3.2 g/dL Low 3.4 - 5.0 g/dL [facility] ALP [Catalytic activity/Vol] 83 U/L 33 - 120 U/L [facility] ALT With P-5'-P [Catalytic activity/Vol] 20 U/L 10 - 52 U/L [facility] AST With P-5'-P [Catalytic activity/Vol] 13 U/L 9 - 39 U/L [facility] Bilirubin [Mass/Vol] 0.3 mg/dL 0.0 - 1 .2 mg/dL [facility] Bilirubin.direct [Mass/Vol] 0 mg/dL 0.0 - 0.3 mg/dL [facility] Protein [Mass/Vol] 7.2 g/dL 6.4 - 8.2 g/dL [facility] Magnesiumon 11-17-2024 Magnesium [Mass/Vol] 2.17 mg/dL 1.60 - 2.40 mg/dL [facility] No Panel Informationon 11-17 Interpretation and review of laboratory results Abnormal [facility] Interpretation and review of laboratory results Normal [facility] Phosphoruson 11-17-2024 Phosphate [Mass/Vol] 3.2 mg/dL 2.5 - 4 .9 mg/dL [facility] Basic metabolic 2000 panelon 11-16-2024 Anion gap [Moles/Vol] 15 mmol/L 10 - 2 0 mmol/L [facility] Calcium [Mass/Vol] 9.2 mg/dL 8.6 - 10. 6 mg/dL [facility] Chloride [Moles/Vol] 103 mmol/L 98 - 10 7 mmol/L [facility] CO2 [Moles/Vol] 22 mmol/L 21 - 32 mmol/L [facility] Creatinine [Mass/Vol] 1.25 mg/dL 0.50 - 1.30 mg/dL [facility] GFR/1.73 sq M.predicted among non-blacks MDRD (S/P/Bld) [Vol rate/Area] 70 mL/min/{1.73_m2} - PINF [facility] Glucose [Mass/Vol] 115 mg/dL High 74 - 99 mg/dL Uni [facility] Interpretation and review of laboratory results Abnormal [facility] Potassium [Moles/Vol] 3.7 mmol/L 3.5 - 5.3 mmol/L [facility] Sodium [Moles/Vol] 136 mmol/L 136 - 145 mmol/L [facility] Urea nitrogen [Mass/Vol] 13 mg/dL 6 - 23 mg/d L [facility] CBC W Auto Differential pane l (Bld)on 11-16-2024 Erythrocyte distribution width (RBC) [Ratio] 16.5 % High 11.5 - 14.5 % [facility] Hematocrit (Bld) [Volume fraction] 26.1 % Low 41.0 - 52.0 % [facility] Hemoglobin (Bld) [Mass/Vol] 8.5 g/dL Low 13.5 - 17.5 g/dL [facility] Immature granulocytes (Bld) [#/Vol] 0.05 10*3/uL [facility] Immature granulocytes/100 WBC (Bld) 0.5 % 0.0 - 0.9 % [facility] MCH (RBC) [Entitic mass] 28.4 pg 26. 0 - 34.0 pg [facility] MCHC (RBC) [Mass/Vol] 32.6 g/dL 32.0 - 36.0 g/dL [facility] MCV (RBC) [Entitic vol] 87 fL 80 - 100 fL [facility] Nucleated RBC/100 WBC (Bld) [Ratio] 0 % [facility] Platelets (Bld) [#/Vol] 619 10*3/uL High [facility] RBC (Bld) [#/Vol] 2.99 10*6/uL Low [facility] WBC (Bld) [#/Vol] 10 10*3/uL [facility] Hepatic function 2000 panelo n 11-16-2024 Albumin BCP dye [Mass/Vol] 3 g/dL Low 3.4 - 5.0 g/dL [facility] ALP [Catalytic activity/Vol] 78 U/L 33 - 120 U/L [facility] ALT With P-5'-P [Catalytic activity/Vol] 17 U/L 10 - 52 U/L [facility] AST With P-5'-P [Catalytic activity/Vol] 11 U/L 9 - 39 U/L [facility] Bilirubin [Mass/Vol] 0.2 mg/dL 0.0 - 1 .2 mg/dL [facility] Bilirubin.direct [Mass/Vol] 0 mg/dL 0.0 - 0.3 mg/dL [facility] Interpretation and review of laboratory results Abnormal [facility] Protein [Mass/Vol] 6.5 g/dL 6.4 - 8.2 g/dL [facility] Magnesiumon 11-16-2024 Magnesium [Mass/Vol] 2.08 mg/dL 1.60 - 2.40 mg/dL [facility] Manual differential performe d Ql (Bld)on 11-16-2024 Basophils (Bld) [#/Vol] 0 10*3/uL U [facility] Basophils/100 WBC (Bld) 0 % 0.0 - 2.0 % [facility] Cells Counted Total (Bld) [#] 113 {cells} [facility] Eosinophils (Bld) [#/Vol] 0.26 10*3/uL [facility] Eosinophils/100 WBC (Bld) 2.6 % 0.0 - 6.0 % [facility] Lymphocytes (Bld) [#/Vol] 1.68 10*3/uL [facility] Lymphocytes/100 WBC (Bld) 16.8 % 13.0 - 44.0 % [facility] Monocytes (Bld) [#/Vol] 0.27 10*3/uL [facility] Monocytes/100 WBC (Bld) 2.7 % 2.0 - 10.0 % [facility] RBC morphology finding Nom (Bld) No significant RBC morphology present [facility] Segmented neutrophils (Bld) [#/Vol] 7.79 10*3/uL High [facility] Segmented neutrophils/100 WBC (Bld) 77.9 % 40.0 - 80.0 % [facility] No Panel Informationon 11-16 Interpretation and review of laboratory results Abnormal [facility] Interpretation and review of laboratory results Normal [facility] Phosphoruson 11-16-2024 Phosphate [Mass/Vol] 2.9 mg/dL 2.5 - 4 .9 mg/dL [facility] Bacteria identified Cx Nom ( Unsp spec)Ordered By: Phil Casas on 11-15-2024 Interpretation and review of laboratory results Abnormal [facility] Microscopic observation Gram stain Nom (Unsp spec) No polymorphonuclear leukocytes seen [facility] Microscopic observation Gram stain Nom (Unsp spec) No organisms seen [facility] Biopsyon 11-15-2024 [facility] Work Phone: [facility] Work Phone: CBC W Auto Differential pane l (Bld)on 11-15-2024 Basophils (Bld) [#/Vol] 0.06 10*3/uL [facility] Basophils/100 WBC (Bld) 0.6 % 0.0 - 2.0 % [facility] Eosinophils (Bld) [#/Vol] 0.28 10*3/uL [facility] Eosinophils/100 WBC (Bld) 2.6 % 0.0 - 6.0 % [facility] Erythrocyte distribution width (RBC) [Ratio] 16.4 % High 11.5 - 14.5 % [facility] Hematocrit (Bld) [Volume fraction] 24.9 % Low 41.0 - 52.0 % [facility] Hemoglobin (Bld) [Mass/Vol] 8.1 g/dL Low 13.5 - 17.5 g/dL [facility] Immature granulocytes (Bld) [#/Vol] 0.04 10*3/uL [facility] Immature granulocytes/100 WBC (Bld) 0.4 % 0.0 - 0.9 % [facility] Interpretation and review of laboratory results Abnormal [facility] Lymphocytes (Bld) [#/Vol] 1.3 10*3/uL [facility] Lymphocytes/100 WBC (Bld) 12.2 % 13.0 - 44.0 % [facility] MCH (RBC) [Entitic mass] 26.6 pg 26. 0 - 34.0 pg [facility] MCHC (RBC) [Mass/Vol] 32.5 g/dL 32.0 - 36.0 g/dL [facility] MCV (RBC) [Entitic vol] 82 fL 80 - 100 fL [facility] Monocytes (Bld) [#/Vol] 1.04 10*3/uL High [facility] Monocytes/100 WBC (Bld) 9.7 % 2.0 - 10.0 % [facility] Neutrophils (Bld) [#/Vol] 7.95 10*3/uL [facility] Neutrophils/100 WBC (Bld) 74.5 % 40.0 - 80.0 % [facility] Nucleated RBC/100 WBC (Bld) [Ratio] 0 % [facility] Platelets (Bld) [#/Vol] 531 10*3/uL High [facility] RBC (Bld) [#/Vol] 3.04 10*6/uL [facility] W[facility] (Bld[facility] [#/Vol] 10.7 10*3/uL [facility] Hepatic function 2000 panelo n 11-15-2024 Albumin BCP dye [Mass/Vol] 3 g/dL Low 3.4 - 5.0 g/dL [facility] ALP [Catalytic activity/Vol] 80 U/L 33 - 120 U/L [facility] ALT With P-5'-P [Catalytic activity/Vol] 21 U/L 10 - 52 U/L [facility] AST With P-5'-P [Catalytic activity/Vol] 18 U/L 9 - 39 U/L [facility] Bilirubin [Mass/Vol] 0.2 mg/dL 0.0 - 1 .2 mg/dL [facility] Bilirubin.direct [Mass/Vol] 0 mg/dL 0.0 - 0.3 mg/dL [facility] Interpretation and review of laboratory results Abnormal [facility] Protein [Mass/Vol] 6.3 g/dL Low 6.4 - 8.2 g/dL [facility] Magnesiumon 11-15-2024 Magnesium [Mass/Vol] 1.93 mg/dL 1.60 - 2.40 mg/dL [facility] Magnesium [Mass/Vol]on 11-15 Interpretation and review of laboratory results Normal [facility] No Panel Informationon 11-15 [facility] Renal function 2000 panelon 11-15-2024 Albumin BCP dye [Mass/Vol] 2.9 g/dL Low 3.4 - 5.0 g/dL [facility] Anion gap [Moles/Vol] 13 mmol/L 10 - 2 0 mmol/L [facility] Calcium [Mass/Vol] 9.4 mg/dL 8.6 - 10. 6 mg/dL [facility] Chloride [Moles/Vol] 105 mmol/L 98 - 10 7 mmol/L [facility] CO2 [Moles/Vol] 24 mmol/L 21 - 32 mmol/L [facility] Creatinine [Mass/Vol] 1.4 mg/dL High 0.50 - 1.30 mg/dL [facility] GFR/1.73 sq M.predicted among non-blacks MDRD (S/P/Bld) [Vol rate/Area] 61 mL/min/{1.73_m2} - PINF [facility] Glucose [Mass/Vol] 116 mg/dL High 74 - 99 mg/dL [facility] Interpretation and review of laboratory results Abnormal [facility] Phosphate [Mass/Vol] 2.5 mg/dL 2.5 - 4 .9 mg/dL [facility] Potassium [Moles/Vol] 3.7 mmol/L 3.5 - 5.3 mmol/L [facility] Sodium [Moles/Vol] 138 mmol/L 136 - 145 mmol/L [facility] Urea nitrogen [Mass/Vol] 10 mg/dL 6 - 23 mg/d L [facility] Tissue/Wound Culture/SmearOr dered By: Phil Casas on 11-15-2024 Bacteria identified Cx Nom (Unsp spec) (1+) Rare Proteus mirabilis Abnormal [facility] Bacteria identified Cx Nom ( Bld)on 11-14-2024 Interpretation and review of laboratory results Normal [facility] Blood Cultureon 11-14-2024 Bacteria identified Cx Nom (Bld) No growth at 4 days - FINAL REPORT [facility] CBC W Auto Differential pane l (Bld)on 11-14-2024 Basophils (Bld) [#/Vol] 0.06 10*3/uL [facility] Basophils/100 WBC (Bld) 0.6 % 0.0 - 2.0 % [facility] Eosinophils (Bld) [#/Vol] 0.4 10*3/uL [facility] Eosinophils/100 WBC (Bld) 4.3 % 0.0 - 6.0 % [facility] Erythrocyte distribution width (RBC) [Ratio] 16.5 % High 11.5 - 14.5 % [facility] Hematocrit (Bld) [Volume fraction] 24.1 % Low 41.0 - 52.0 % [facility] Hemoglobin (Bld) [Mass/Vol] 7.7 g/dL Low 13.5 - 17.5 g/dL [facility] Immature granulocytes (Bld) [#/Vol] 0.05 10*3/uL [facility] Immature granulocytes/100 WBC (Bld) 0.5 % 0.0 - 0.9 % [facility] Interpretation and review of laboratory results Abnormal [facility] Lymphocytes (Bld) [#/Vol] 1.02 10*3/uL Low [facility] Lymphocytes/100 WBC (Bld) 11 % 13.0 - 44.0 % [facility] MCH (RBC) [Entitic mass] 27.6 pg 26. 0 - 34.0 pg [facility] MCHC (RBC) [Mass/Vol] 32 g/dL 32.0 - 36.0 g/dL [facility] MCV (RBC) [Entitic vol] 86 fL 80 - 100 fL [facility] Monocytes (Bld) [#/Vol] 1.05 10*3/uL High [facility] Monocytes/100 WBC (Bld) 11.4 % 2.0 - 10.0 % [facility] Neutrophils (Bld) [#/Vol] 6.67 10*3/uL [facility] Neutrophils/100 WBC (Bld) 72.2 % 40.0 - 80.0 % [facility] Nucleated RBC/100 WBC (Bld) [Ratio] 0 % [facility] Platelets (Bld) [#/Vol] 507 10*3/uL High [facility] RBC (Bld) [#/Vol] 2.79 10*6/uL Low [facility] WBC (Bld) [#/Vol] 9.3 10*3/uL [facility] Calcium (24H U) [Mass/Time]o n 11-14-2024 Calcium, 24 Hour Urine 384 High Un [facility] Collection duration (Unsp spec) 24 hrs [facility] Creatinine (24H U) [Mass/Time] 1.62 [facility] Creatinine (24H U) [Mass/Vol] 52.3 mg/dL 20.0 - 370.0 mg/dL [facility] Interpretation and review of laboratory results Abnormal [facility] Specimen volume (24H U) 3.1 L U [facility] Calcium, 24 Hour Urineon Calcium (24H U) [Mass/Time] 12.4 mg/dL [facility] Cobalamin (Vitamin B12) [Mas s/Vol]on 11-14-2024 Interpretation and review of laboratory results Normal [facility] Comprehensive metabolic 2000 panelon 11-14-2024 Albumin BCP dye [Mass/Vol] 2.7 g/dL Low 3.4 - 5.0 g/dL [facility] ALP [Catalytic activity/Vol] 80 U/L 33 - 120 U/L [facility] ALT With P-5'-P [Catalytic activity/Vol] 17 U/L 10 - 52 U/L [facility] Anion gap [Moles/Vol] 13 mmol/L 10 - 2 0 mmol/L [facility] AST With P-5'-P [Catalytic activity/Vol] 15 U/L 9 - 39 U/L [facility] Bilirubin [Mass/Vol] 0.3 mg/dL 0.0 - 1 .2 mg/dL [facility] Calcium [Mass/Vol] 9.1 mg/dL 8.6 - 10. 6 mg/dL [facility] Chloride [Moles/Vol] 107 mmol/L 98 - 10 7 mmol/L [facility] CO2 [Moles/Vol] 22 mmol/L 21 - 32 mmol/L [facility] Creatinine [Mass/Vol] 1.38 mg/dL High 0.50 - 1.30 mg/dL [facility] GFR/1.73 sq M.predicted among non-blacks MDRD (S/P/Bld) [Vol rate/Area] 62 mL/min/{1.73_m2} - PINF [facility] Glucose [Mass/Vol] 97 mg/dL 74 - 99 mg/dL [facility] Interpretation and review of laboratory results Abnormal [facility] Potassium [Moles/Vol] 3.8 mmol/L 3.5 - 5.3 mmol/L [facility] Protein [Mass/Vol] 5.9 g/dL Low 6.4 - 8.2 g/dL [facility] Sodium [Moles/Vol] 138 mmol/L 136 - 145 mmol/L [facility] Urea nitrogen [Mass/Vol] 8 mg/dL 6 - 23 mg/d L [facility] Folateon 11-14-2024 Folate [Mass/Vol] 4.6 ng/mL Low 5.0 - PINF ng/mL [facility] Folate [Mass/Vol]on 11-14-19 Interpretation and review of laboratory results Abnormal [facility] IgAon 11-14-2024 IgA [Mass/Vol] 503 mg/dL High 70 - 400 mg/dL [facility] Work Phone: IgA [Mass/Vol]on 11-14-2024 Interpretation and review of laboratory results Abnormal [facility] Work Phone: [facility] Work Phone: IgGOrdered By: Ruba guy on 11-14-2024 IgG [Mass/Vol] 1160 mg/dL 700 - 1600 mg/dL [facility] IgG [Mass/Vol]Ordered By: Nik Abel on 11-14-2024 Interpretation and review of laboratory results Normal [facility] IgMon 11-14-2024 IgM [Mass/Vol] 60 mg/dL 40 - 230 mg/dL [facility] Work Phone: IgM [Mass/Vol]on 11-14-2024 Interpretation and review of laboratory results Normal [facility] Work Phone: [facility] Work Phone: M. tuberculosis stim IFN-g a nd spot count panel (Bld)on 11-14-2024 Gamma interferon negative control spot count (Bld) [#] Passed [facility] M. tuberculosis stim IFN-g CFP10 Ag spot count (Bld) [#] 4 [facility] M. tuberculosis stim IFN-g ESAT-6 Ag spot count (Bld) [#] 0 [facility] M. tuberculosis stim IFN-g Ql (Bld) [Interp] Negative Negative [facility] Mitogen stimulated gamma interferon positive control spot count (Bld) [#] Passed [facility] Magnesiumon 11-14-2024 Magnesium [Mass/Vol] 1.78 mg/dL 1.60 - 2.40 mg/dL [facility] Magnesium [Mass/Vol]on 11-14 Interpretation and review of laboratory results Normal [facility] No Panel Informationon 11-14 [facility] PTH-Related Peptideon 2024 Parathyrin related protein [Moles/Vol] 12 pmol/L High < or = 4.2 [facility] Parathyrin related protein [ Moles/Vol]on 11-14-2024 Interpretation and review of laboratory results Abnormal [facility] Pathologist review Pathologi st comment (Bld) [Interp]Ordered By: Jose C Hensley on 11-14-2024 Pathologist Review-CBC Differential Thrombocytosis favor reactive. Anemia with no specific morphologic findings. [facility] Work Phone: [facility] Work Phone: Vitamin B12on 11-14-2024 Cobalamin (Vitamin B12) [Mass/Vol] 328 pg/mL 211 - 911 pg/mL [facility] 1,25-dihydroxyvitamin D3 [Ma ss/Vol]on 11-13-2024 1,25-dihydroxyvitamin D [Mass/Vol] 35.9 pg/mL 19.9 - 79.3 pg/mL [facility] Blood type and Indirect anti body screen panel (Bld)on 11-13-2024 ABO group Nom (Bld) [facility] Blood group antibody screen Ql Negative [facility] D Ag Ql (Bld) Positive [facility] CBC W Auto Differential pane l (Bld)Ordered By: Seble Tate on 11-13-2024 Basophils (Bld) [#/Vol] 0.02 10*3/uL [facility] Basophils/100 WBC (Bld) 0.4 % 0.0 - 2.0 % [facility] Eosinophils (Bld) [#/Vol] 0.2 10*3/uL [facility] Eosinophils/100 WBC (Bld) 3.6 % 0.0 - 6.0 % [facility] Erythrocyte distribution width (RBC) [Ratio] 16.7 % High 11.5 - 14.5 % [facility] Hematocrit (Bld) [Volume fraction] 16 % Low 41.0 - 52.0 % [facility] Hemoglobin (Bld) [Mass/Vol] 4.9 g/dL Critically low 13.5 - 17.5 g/dL [facility] Immature granulocytes (Bld) [#/Vol] 0.01 10*3/uL [facility] Immature granulocytes/100 WBC (Bld) 0.2 % 0.0 - 0.9 % [facility] Interpretation and review of laboratory results Abnormal [facility] Lymphocytes (Bld) [#/Vol] 0.4 10*3/uL Low [facility] Lymphocytes/100 WBC (Bld) 7.1 % 13.0 - 44.0 % [facility] MCH (RBC) [Entitic mass] 28.3 pg 26. 0 - 34.0 pg [facility] MCHC (RBC) [Mass/Vol] 30.6 g/dL Low 32.0 - 36.0 g/dL [facility] MCV (RBC) [Entitic vol] 93 fL 80 - 100 fL [facility] Monocytes (Bld) [#/Vol] 0.55 10*3/uL [facility] Monocytes/100 WBC (Bld) 9.8 % 2.0 - 10.0 % [facility] Neutrophils (Bld) [#/Vol] 4.44 10*3/uL [facility] Neutrophils/100 WBC (Bld) 78.9 % 40.0 - 80.0 % [facility] Nucleated RBC/100 WBC (Bld) [Ratio] 0 % [facility] Platelets (Bld) [#/Vol] 306 10*3/uL [facility] RBC (Bld) [#/Vol] 1.73 10*6/uL Low [facility] WBC (Bld) [#/Vol] 5.6 10*3/uL [facility] CBC W Auto Differential pane l (Bld)on 11-13-2024 Basophils (Bld) [#/Vol] 0.07 10*3/uL [facility] Basophils/100 WBC (Bld) 0.6 % 0.0 - 2.0 % [facility] Eosinophils (Bld) [#/Vol] 0.44 10*3/uL [facility] Eosinophils/100 WBC (Bld) 3.9 % 0.0 - 6.0 % [facility] Erythrocyte distribution width (RBC) [Ratio] 16.6 % High 11.5 - 14.5 % [facility] Hematocrit (Bld) [Volume fraction] 26.2 % Low 41.0 - 52.0 % [facility] Hemoglobin (Bld) [Mass/Vol] 8.3 g/dL Low 13.5 - 17.5 g/dL [facility] Immature granulocytes (Bld) [#/Vol] 0.11 10*3/uL [facility] Immature granulocytes/100 WBC (Bld) 1 % High 0.0 - 0.9 % [facility] Interpretation and review of laboratory results Abnormal [facility] Lymphocytes (Bld) [#/Vol] 1.43 10*3/uL [facility] Lymphocytes/100 WBC (Bld) 12.8 % 13.0 - 44.0 % [facility] MCH (RBC) [Entitic mass] 27.9 pg 26. 0 - 34.0 pg [facility] MCHC (RBC) [Mass/Vol] 31.7 g/dL Low 32.0 - 36.0 g/dL [facility] MCV (RBC) [Entitic vol] 88 fL 80 - 100 fL [facility] Monocytes (Bld) [#/Vol] 1.07 10*3/uL High [facility] Monocytes/100 WBC (Bld) 9.6 % 2.0 - 10.0 % [facility] Neutrophils (Bld) [#/Vol] 8.02 10*3/uL High [facility] Neutrophils/100 WBC (Bld) 72.1 % 40.0 - 80.0 % [facility] Nucleated RBC/100 WBC (Bld) [Ratio] 0 % [facility] Platelets (Bld) [#/Vol] 576 10*3/uL High [facility] RBC (Bld) [#/Vol] 2.97 10*6/uL Low [facility] WBC (Bld) [#/Vol] 11.1 10*3/uL [facility] CBC panel Auto (Bld)on 11-13 Erythrocyte distribution width (RBC) [Ratio] 16.4 % High 11.5 - 14.5 % [facility] Hematocrit (Bld) [Volume fraction] 25.5 % Low 41.0 - 52.0 % [facility] Hemoglobin (Bld) [Mass/Vol] 8.2 g/dL Low 13.5 - 17.5 g/dL [facility] Interpretation and review of laboratory results Abnormal [facility] MCH (RBC) [Entitic mass] 27.8 pg 26. 0 - 34.0 pg [facility] MCHC (RBC) [Mass/Vol] 32.2 g/dL 32.0 - 36.0 g/dL [facility] MCV (RBC) [Entitic vol] 86 fL 80 - 100 fL [facility] Nucleated RBC/100 WBC (Bld) [Ratio] 0 % [facility] Platelets (Bld) [#/Vol] 570 10*3/uL High [facility] RBC (Bld) [#/Vol] 2.95 10*6/uL Low [facility] WBC (Bld) [#/Vol] 9.4 10*3/uL [facility] Calcium, ionizedon Calcium.ionized (Bld) [Moles/Vol] 1.06 mmol/L Low 1.1 - 1.33 mmol/L [facility] Calcium.ionized (Bld) [Moles /Vol]on 11-13-2024 Interpretation and review of laboratory results Abnormal [facility] Comprehensive metabolic 2000 panelon 11-13-2024 Albumin BCP dye [Mass/Vol] 2.8 g/dL Low 3.4 - 5.0 g/dL [facility] ALP [Catalytic activity/Vol] 89 U/L 33 - 120 U/L [facility] ALT With P-5'-P [Catalytic activity/Vol] 17 U/L 10 - 52 U/L [facility] Anion gap [Moles/Vol] 11 mmol/L 10 - 2 0 mmol/L [facility] AST With P-5'-P [Catalytic activity/Vol] 15 U/L 9 - 39 U/L [facility] Bilirubin [Mass/Vol] 0.3 mg/dL 0.0 - 1 .2 mg/dL [facility] Calcium [Mass/Vol] 9.8 mg/dL 8.6 - 10. 6 mg/dL [facility] Chloride [Moles/Vol] 108 mmol/L High 98 - 10 7 mmol/L [facility] CO2 [Moles/Vol] 23 mmol/L 21 - 32 mmol/L [facility] Creatinine [Mass/Vol] 1.4 mg/dL High 0.50 - 1.30 mg/dL [facility] GFR/1.73 sq M.predicted among non-blacks MDRD (S/P/Bld) [Vol rate/Area] 61 mL/min/{1.73_m2} - PINF [facility] Glucose [Mass/Vol] 117 mg/dL High 74 - 99 mg/dL [facility] Interpretation and review of laboratory results Abnormal [facility] Potassium [Moles/Vol] 3.6 mmol/L 3.5 - 5.3 mmol/L [facility] Protein [Mass/Vol] 5.9 g/dL Low 6.4 - 8.2 g/dL [facility] Sodium [Moles/Vol] 138 mmol/L 136 - 145 mmol/L [facility] Urea nitrogen [Mass/Vol] 9 mg/dL 6 - 23 mg/d L [facility] Albumin BCP dye [Mass/Vol] 2.8 g/dL Low 3.4 - 5.0 g/dL [facility] ALP [Catalytic activity/Vol] 79 U/L 33 - 120 U/L [facility] ALT With P-5'-P [Catalytic activity/Vol] 16 U/L 10 - 52 U/L [facility] Anion gap [Moles/Vol] 12 mmol/L 10 - 2 0 mmol/L [facility] AST With P-5'-P [Catalytic activity/Vol] 13 U/L 9 - 39 U/L [facility] Bilirubin [Mass/Vol] 0.4 mg/dL 0.0 - 1 .2 mg/dL [facility] Calcium [Mass/Vol] 11.1 mg/dL High 8.6 - 10. 6 mg/dL [facility] Chloride [Moles/Vol] 106 mmol/L 98 - 10 7 mmol/L [facility] CO2 [Moles/Vol] 25 mmol/L 21 - 32 mmol/L [facility] Creatinine [Mass/Vol] 1.41 mg/dL High 0.50 - 1.30 mg/dL [facility] GFR/1.73 sq M.predicted among non-blacks MDRD (S/P/Bld) [Vol rate/Area] 60 mL/min/{1.73_m2} Low - PINF [facility] Glucose [Mass/Vol] 106 mg/dL High 74 - 99 mg/dL [facility] Potassium [Moles/Vol] 3.7 mmol/L 3.5 - 5.3 mmol/L [facility] Protein [Mass/Vol] 6.2 g/dL Low 6.4 - 8.2 g/dL [facility] Sodium [Moles/Vol] 139 mmol/L 136 - 145 mmol/L [facility] Urea nitrogen [Mass/Vol] 9 mg/dL 6 - 23 mg/d L [facility] Gas panel (BldV)on 5 Anion gap 4 (BldV) [Moles/Vol] 9 mmol/L Low 10.0 - 25.0 mmol/L [facility] Base excess Calc (BldV) [Moles/Vol] -1.8000 mmol/L -2.0 - 3.0 mmol/L [facility] Calcium.ionized (BldV) [Moles/Vol] 1.43 mmol/L High 1.10 - 1.33 mmol/L [facility] Chloride (BldV) [Moles/Vol] 110 mmol/L High 98 - 107 mmol/L [facility] CO2 (BldV) [Partial pressure] 29 mm[Hg] Low [facility] Glucose [Mass/Vol] 130 mg/dL High 74 - 99 mg/dL [facility] HCO3 (Bld) [Moles/Vol] 21.6 mmol/L Low 22.0 - 26.0 mmol/L [facility] Hematocrit Est (Bld) [Volume fraction] 16 % Low 41.0 - 52.0 % [facility] Hemoglobin (Bld) [Mass/Vol] 5.3 g/dL Critically low 13.5 - 17.5 g/dL [facility] Inhaled oxygen concentration 21 % [facility] Interpretation and review of laboratory results Abnormal [facility] Lactate (BldV) [Moles/Vol] 1.5 mmol/L 0.4 - 2.0 mmol/L [facility] Oxygen (BldV) [Partial pressure] 75 mm[Hg] High [facility] Oxygen saturation in Venous blood 99 % High 45 - 75 % [facility] Oxyhemoglobin (BldV) [Mass fraction] 96 % High 45.0 - 75.0 % [facility] pH (BldV) 7.48 [pH] High 7.33 - 7.43 pH [facility] Potassium (BldV) [Moles/Vol] 3.8 mmol/L 3.5 - 5.3 mmol/L [facility] Sodium (BldV) [Moles/Vol] 137 mmol/L 136 - 145 mmol/L [facility] Glucose Test strip manual (B ld) [Mass/Vol]on 11-13-2024 Glucose [Mass/Vol] 96 mg/dL 74 - 99 mg/dL [facility] Interpretation and review of laboratory results Normal [facility] Haptoglobinon 11-13-2024 Haptoglobin Nephelometry [Mass/Vol] 319 mg/dL High 30 - 200 mg/dL [facility] Haptoglobin Nephelometry [Ma ss/Vol]on 11-13-2024 Interpretation and review of laboratory results Abnormal [facility] Hepatic function 2000 panelo n 11-13-2024 Albumin BCP dye [Mass/Vol] 2.8 g/dL Low 3.4 - 5.0 g/dL [facility] ALP [Catalytic activity/Vol] 89 U/L 33 - 120 U/L [facility] ALT With P-5'-P [Catalytic activity/Vol] 17 U/L 10 - 52 U/L [facility] AST With P-5'-P [Catalytic activity/Vol] 15 U/L 9 - 39 U/L [facility] Bilirubin [Mass/Vol] 0.3 mg/dL 0.0 - 1 .2 mg/dL [facility] Bilirubin.direct [Mass/Vol] 0.1 mg/dL 0.0 - 0.3 mg/dL [facility] Interpretation and review of laboratory results Abnormal [facility] Protein [Mass/Vol] 5.9 g/dL Low 6.4 - 8.2 g/dL [facility] Lactateon 11-13-2024 Lactate [Moles/Vol] 1.5 mmol/L 0.4 - 2. 0 mmol/L [facility] Lactate Dehydrogenaseon 10-20 LDH Lactate to pyruvate reaction [Catalytic activity/Vol] 62 U/L Low 84 - 246 U/L [facility] Lactate [Moles/Vol]on 2024 Interpretation and review of laboratory results Normal [facility] Magnesiumon 11-13-2024 Magnesium [Mass/Vol] 1.23 mg/dL Low 1.60 - 2.40 mg/dL [facility] Magnesium [Mass/Vol] 1.86 mg/dL 1.60 - 2.40 mg/dL [facility] Magnesium [Mass/Vol]on 11-13 Interpretation and review of laboratory results Abnormal [facility] Interpretation and review of laboratory results Normal [facility] No Panel Informationon 11-13 Interpretation and review of laboratory results Abnormal [facility] Interpretation and review of laboratory results Abnormal [facility] Phosphate [Mass/Vol]on 11-13 Interpretation and review of laboratory results Normal [facility] Phosphoruson 11-13-2024 Phosphate [Mass/Vol] 3 mg/dL 2.5 - 4 .9 mg/dL [facility] Renal function 2000 panelon 11-13-2024 Albumin BCP dye [Mass/Vol] 2.1 g/dL Low 3.4 - 5.0 g/dL [facility] Anion gap [Moles/Vol] 9 mmol/L [facility] Calcium [Mass/Vol] 7.4 mg/dL Low 8.6 - 10. 6 mg/dL [facility] Chloride [Moles/Vol] 120 mmol/L High 98 - 10 7 mmol/L [facility] CO2 [Moles/Vol] 17 mmol/L Low 21 - 32 mmol/L [facility] Creatinine [Mass/Vol] 0.93 mg/dL 0.50 - 1.30 mg/dL [facility] eGFR - PINF [facility] Glucose [Mass/Vol] 83 mg/dL 74 - 99 mg/dL [facility] Phosphate [Mass/Vol] 1.6 mg/dL Low 2.5 - 4 .9 mg/dL [facility] Potassium [Moles/Vol] 2.7 mmol/L Critically low 3.5 - 5.3 mmol/L [facility] Sodium [Moles/Vol] 143 mmol/L 136 - 145 mmol/L [facility] Urea nitrogen [Mass/Vol] 6 mg/dL 6 - 23 mg/d L [facility] Reticulocytes panel (Bld)on 11-13-2024 Hemoglobin (Reticulocytes) [Entitic mass] 24 pg Low 28 - 38 pg [facility] Immature Retic fraction 15.5 % NINF - 16.0 % [facility] Interpretation and review of laboratory results Abnormal [facility] Reticulocytes (Bld) [#/Vol] 0.023 10*3/uL [facility] Reticulocytes/100 RBC (Bld) 1.3 % 0.5 - 2.0 % [facility] Serum Protein Electrophoresi s + ImmunofixationOrdered By: [place] on 11-13-2024 Albumin [Mass/Vol] 2.9 g/dL Low 3.4 - 5.0 g/dL [facility] Work Phone: 36 Alpha 1 Globulin 0.5 g/dL 0.2 - 0.6 g/dL [facility] Work Phone: 36 Alpha 2 Globulin 0.9 g/dL 0.4 - 1.1 g/dL [facility] Work Phone: 36 Beta Globulin 1 g/dL 0.5 - 1.2 g/dL [facility] Work Phone: 36 Gamma 1.1 g/dL 0.5 - 1.4 g/dL [facility] Work Phone: 36 Immunofixation Comment [facility] Work Phone: Interpretation and review of laboratory results Abnormal [facility] Work Phone: 36 Path Review - Serum Immunofixation [facility] Work Phone: Path Review - Serum Protein Electrophoresis [facility] Work Phone: 36 Protein [Mass/Vol] 0.2 g/dL High [facility] Work Phone: Protein Electrophoresis Comment [facility] Work Phone: [facility] Work Phone: Slide Requeston 11-13-2024 [facility] Work Phone: TSH with reflex to Free T4 i f abnormalon 11-13-2024 Interpretation and review of laboratory results Normal [facility] TSH Qn 1.25 m[IU]/L [facility] Vancomycinon 11-13-2024 Vancomycin [Mass/Vol] 26.4 ug/mL High 5.0 - 20.0 ug/mL [facility] Vancomycin [Mass/Vol]on 10-20 [facility] Biopsyon 11-12-2024 [facility] Work Phone: [facility] Work Phone: CBC W Auto Differential pane l (Bld)on 11-12-2024 Basophils (Bld) [#/Vol] 0.07 10*3/uL [facility] Basophils/100 WBC (Bld) 0.6 % 0.0 - 2.0 % [facility] Eosinophils (Bld) [#/Vol] 0.55 10*3/uL [facility] Eosinophils/100 WBC (Bld) 4.8 % 0.0 - 6.0 % [facility] Erythrocyte distribution width (RBC) [Ratio] 16.7 % High 11.5 - 14.5 % [facility] Hematocrit (Bld) [Volume fraction] 27.2 % Low 41.0 - 52.0 % [facility] Hemoglobin (Bld) [Mass/Vol] 8.2 g/dL Low 13.5 - 17.5 g/dL [facility] Immature granulocytes (Bld) [#/Vol] 0.04 10*3/uL [facility] Immature granulocytes/100 WBC (Bld) 0.3 % 0.0 - 0.9 % [facility] Interpretation and review of laboratory results Abnormal [facility] Lymphocytes (Bld) [#/Vol] 1.73 10*3/uL [facility] Lymphocytes/100 WBC (Bld) 15.1 % 13.0 - 44.0 % [facility] MCH (RBC) [Entitic mass] 27 pg 26. 0 - 34.0 pg [facility] MCHC (RBC) [Mass/Vol] 30.1 g/dL Low 32.0 - 36.0 g/dL [facility] MCV (RBC) [Entitic vol] 90 fL 80 - 100 fL [facility] Monocytes (Bld) [#/Vol] 1.26 10*3/uL High [facility] Monocytes/100 WBC (Bld) 11 % 2.0 - 10.0 % [facility] Neutrophils (Bld) [#/Vol] 7.8 10*3/uL High [facility] Neutrophils/100 WBC (Bld) 68.2 % 40.0 - 80.0 % [facility] Nucleated RBC/100 WBC (Bld) [Ratio] 0 % [facility] Platelets (Bld) [#/Vol] 576 10*3/uL High [facility] RBC (Bld) [#/Vol] 3.04 10*6/uL Low [facility] WBC (Bld) [#/Vol] 11.5 10*3/uL High [facility] metabolic 2000 panelon 11-12-2024 Albumin BCP dye [Mass/Vol] 2.9 g/dL Low 3.4 - 5.0 g/dL [facility] ALP [Catalytic activity/Vol] 73 U/L 33 - 120 U/L [facility] ALT With P-5'-P [Catalytic activity/Vol] 12 U/L 10 - 52 U/L [facility] Anion gap [Moles/Vol] 13 mmol/L 10 - 2 0 mmol/L [facility] AST With P-5'-P [Catalytic activity/Vol] 7 U/L Low 9 - 39 U/L [facility] Bilirubin [Mass/Vol] 0.3 mg/dL 0.0 - 1 .2 mg/dL [facility] Calcium [Mass/Vol] 11.4 mg/dL High 8.6 - 10. 6 mg/dL [facility] Chloride [Moles/Vol] 107 mmol/L 98 - 10 7 mmol/L [facility] CO2 [Moles/Vol] 23 mmol/L 21 - 32 mmol/L [facility] Creatinine [Mass/Vol] 1.49 mg/dL High 0.50 - 1.30 mg/dL [facility] GFR/1.73 sq M.predicted among non-blacks MDRD (S/P/Bld) [Vol rate/Area] 56 mL/min/{1.73_m2} Low - PINF [facility] Glucose [Mass/Vol] 93 mg/dL 74 - 99 mg/dL [facility] Interpretation and review of laboratory results Abnormal [facility] Potassium [Moles/Vol] 3.6 mmol/L 3.5 - 5.3 mmol/L [facility] Protein [Mass/Vol] 6.1 g/dL Low 6.4 - 8.2 g/dL [facility] Sodium [Moles/Vol] 139 mmol/L 136 - 145 mmol/L [facility] Urea nitrogen [Mass/Vol] 11 mg/dL 6 - 23 mg/d L [facility] HCV RNA panel MERON+probeOrder ed By: Cassandra Guzmán on 11-12-2024 HCV RNA MERON+probe [Log units/Vol] [facility] HCV RNA MERON+probe Qn Not detected Not detected [facility] Magnesiumon 11-12-2024 Magnesium [Mass/Vol] 1.91 mg/dL 1.60 - 2.40 mg/dL [facility] Magnesium [Mass/Vol]on 11-12 Interpretation and review of laboratory results Normal [facility] No Panel Informationon 11-12 [facility] Comprehensive metabolic 2000 panelon 11-11-2024 Albumin BCP dye [Mass/Vol] 2.8 g/dL Low 3.4 - 5.0 g/dL [facility] ALP [Catalytic activity/Vol] 71 U/L 33 - 120 U/L [facility] ALT With P-5'-P [Catalytic activity/Vol] 9 U/L Low 10 - 52 U/L [facility] Anion gap [Moles/Vol] 9 mmol/L Low 10 - 2 0 mmol/L [facility] AST With P-5'-P [Catalytic activity/Vol] 6 U/L Low 9 - 39 U/L [facility] Bilirubin [Mass/Vol] 0.3 mg/dL 0.0 - 1 .2 mg/dL [facility] Calcium [Mass/Vol] 11.2 mg/dL High 8.6 - 10. 6 mg/dL [facility] Chloride [Moles/Vol] 108 mmol/L High 98 - 10 7 mmol/L [facility] CO2 [Moles/Vol] 26 mmol/L 21 - 32 mmol/L [facility] Creatinine [Mass/Vol] 1.4 mg/dL High 0.50 - 1.30 mg/dL [facility] GFR/1.73 sq M.predicted among non-blacks MDRD (S/P/Bld) [Vol rate/Area] 61 mL/min/{1.73_m2} - PINF [facility] Glucose [Mass/Vol] 101 mg/dL High 74 - 99 mg/dL [facility] Potassium [Moles/Vol] 3.8 mmol/L 3.5 - 5.3 mmol/L [facility] Protein [Mass/Vol] 5.6 g/dL Low 6.4 - 8.2 g/dL [facility] Sodium [Moles/Vol] 139 mmol/L 136 - 145 mmol/L [facility] Urea nitrogen [Mass/Vol] 11 mg/dL 6 - 23 mg/d L [facility] HBV core Ab Ql (S)on 025 Interpretation and review of laboratory results Normal [facility] HBV surface Ab Qn (S)on 10-20 Interpretation and review of laboratory results Normal [facility] HBV surface Ag IA Qlon 11-11 Interpretation and review of laboratory results Normal [facility] HIV 1+2 Ab+HIV1 p24 Ag IA Ql on 11-11-2024 Interpretation and review of laboratory results Normal [facility] Najera HIV 1/2 Antigen/Antibody Scr een with Reflex to Confirmationon 11-11-2024 HIV 1+2 Ab+HIV1 p24 Ag IA Ql Non-Reactive Nonreactive [facility] Hepatitis B Core Antibody, T otalon 11-11-2024 HBV core Ab Ql (S) Non-Reactive Nonreactive [facility] Hepatitis B surface antibody on 11-11-2024 HBV surface Ab Qn (S) NINF [facility] Hepatitis B surface antigeno n 11-11-2024 HBV surface Ag IA Ql Non-Reactive [facility]reactive [facility] Magnesiumon 11-11-2024 Magnesium [Mass/Vol] 1.98 mg/dL 1.60 - 2.40 mg/dL [facility] Magnesium [Mass/Vol]on 11-11 Interpretation and review of laboratory results Normal [facility] No Panel Informationon 11-11 Interpretation and review of laboratory results Abnormal [facility] Phosphoruson 11-11-2024 Phosphate [Mass/Vol] 2.7 mg/dL 2.5 - 4 .9 mg/dL [facility] Urine Protein Electrophoresi son 11-11-2024 Albumin Elph (U) [Mass fraction] 16.4 % [facility] Work Phone: )[phone] Alpha 1 globulin Elph (U) [Mass fraction] 29.9 % [facility] Work Phone: )[phone] Alpha 2 globulin Elph (U) [Mass fraction] 9.4 % [facility] Work Phone: [phone] Beta globulin Elph (U) [Mass fraction] 21.8 % [facility] Work Phone: [phone] Gamma globulin Elph (U) [Mass fraction] 22.5 % [facility] Work Phone: )[phone] Path Review-Urine Protein Electrophoresis [facility] Work Phone: [phone] Urine Electrophoresis Comment Normal. [facility] Work Phone: [phone] [facility] Work Phone: [phone] Vancomycinon 11-11-2024 Vancomycin [Mass/Vol] 27 ug/mL High 5.0 - 20.0 ug/mL [facility] Vancomycin [Mass/Vol]on 10-20 [facility] ECG 12-LEADon 11-10-2024 ECG 12-LEAD Ventricular Rate 77 Atrial Rate 77 P-R Interval 146 QRS Duration 108 Q-T Interval 368 QTC Calculation(Bazett) 416 P [place] 55 R [place] 72 T [place] 66 QRS Count 13 Q Onset 211 [...] discharge needs are met Outcome: Progressing Normal [facility] CBC W Auto Differential pane l (Bld)Ordered By: Marsyol El on 11-09-2024 Erythrocyte distribution width (RBC) [Ratio] 16.4 % High 11.5 - 15.0 % [facility] Hematocrit (Bld) [Volume fraction] 27.7 % Low 40.0 - 52.0 % [facility] Hemoglobin (Bld) [Mass/Vol] 8.8 g/dL Low 13.0 - 18.0 g/dL [facility] Interpretation and review of laboratory results Abnormal [facility] MCH (RBC) [Entitic mass] 27.7 pg 26. 0 - 34.0 pg [facility] MCHC (RBC) [Mass/Vol] 31.8 % 30.5 - 36.0 % [facility] MCV (RBC) [Entitic vol] 87.1 fL 77.0 - 99.0 fL [facility] Platelet mean volume (Bld) [Entitic vol] 8.8 fL Low 9.0 - 12.7 fL [facility] Platelets (Bld) [#/Vol] 524 10*3/uL High 140 - 440 10*3/uL [facility] RBC (Bld) [#/Vol] 3.18 10*6/uL Low 4.40 - 5.9 0 10*6/uL [facility] WBC (Bld) [#/Vol] 13 10*3/uL High 3.6 - 10.7 10*3/uL [facility] CBC WITH AUTO DIFFERENTIALon 11-09-2024 Erythrocyte distribution width (RBC) [Ratio] 16.4 % High 11.5-15.0 [facility] Comment on above: Performed By: #### L [id number], [id number] ####Librarian: JAZLYN JIMENEZ ([id number])[facility])[address] [place] [address] Hematocrit (Bld) [Volume fraction] 27.7 % Low 40.0-52.0 [facility] Comment on above: Performed By: #### Kamila [id number], [id number] ####Librarian: JAZLYN JIMENEZ ([id number])[facility])[address] [place] [address] Hemoglobin (Bld) [Mass/Vol] 8.8 g/dL Low 13.0-18.0 [facility] Comment on above: Performed By: #### L [id number], [id number] ####Librarian: JAZLYN JIMENEZ ([id number])[facility] ([facility])[address] [place] [address] MCH (RBC) [Entitic mass] 27.7 pg Normal 26.0-34.0 [facility] Comment on above: Performed By: #### L [id number], [id number] ####Librarian: JAZLYN JIMENEZ ([id number])[facility])[address] [place] [address] MCHC 31.8 % Normal 30.5-36.0 [facility] Comment on above: Performed By: #### L [id number], [id number] ####Librarian: JAZLYN JIMENEZ ([id number])[facility])[address] [place] [address] MCV (RBC) [Entitic vol] 87.1 fL Normal 77.0-99.0 [facility] Comment on above: Performed By: #### L [id number], [id number] ####Librarian: JAZLYN JIMENEZ ([id number])[facility])[address] [place] [address] Platelet mean volume (Bld) [Entitic vol] 8.8 fL Low 9.0-12.7 [facility] Comment on above: Performed By: #### L [id number], [id number] ####Librarian: JAZLYN JIMENEZ ([id number])[facility])[address] [place] [address] Platelets (Bld) [#/Vol] 524 10*3/uL High 140-440 [facility] Comment on above: Performed By: #### Kamila [id number], [id number] ####Librarian: JAZLYN JIMENEZ ([id number])[facility])[address] [place] [address] RBC (Bld) [#/Vol] 3.18 10*6/uL Low 4.40-5.90 [facility] Comment on above: Performed By: #### Kamila [id number], [id number] ####Librarian: JAZLYN JIMENEZ ([id number])[facility])[address] [place] [address] WBC (Bld) [#/Vol] 13.0 10*3/uL High 3.6-10.7 [facility] Comment on above: Performed By: #### L [id number], [id number] ####Librarian: JAZLYN JIMENEZ ([id number])[facility])[address] [place] [address] COMPREHENSIVE METABOLIC PANE Yuriy 11-09-2024 Albumin [Mass/Vol] 2.5 g/dL Low 3.5-5.0 [facility] Comment on above: Performed By: #### L [id number] ####Librarian: JAZLYN JIMENEZ ([id number])[facility])[address] [place] [address] ALP [Catalytic activity/Vol] 70 U/L Normal 40-150 [facility] Comment on above: Performed By: #### L [id number] ####Librarian: JAZLYN JIMENEZ ([id number])[facility] ([facility])[address] [place] [address] ALT [Catalytic activity/Vol] U/L Normal <40 [facility] Comment on above: Performed By: #### L [id number] ####Librarian: JAZLYN JIMENEZ ([id number])[facility])[address] [place] [address] Anion gap [Moles/Vol] 6 mmol/L Normal 3-13 [facility] Comment on above: Performed By: #### L [id number] ####Librarian: JAZLYN JIMENEZ ([id number])[facility])[address] [place] [address] AST [Catalytic activity/Vol] 11 U/L Normal <34 [facility] Comment on above: Performed By: #### L [id number] ####Librarian: JAZLYN JIMENEZ ([id number])[facility] ([facility])[address] [place] [address] [place] Bilirubin [Mass/Vol] 0.4 mg/dL Normal <1.2 [facility] Comment on above: Performed By: #### L [id number] ####Librarian: JAZLYN JIMENEZ ([id number])[facility] ([facility])[address] [place] [address] Calcium [Mass/Vol] 12.1 mg/dL High 8.4-10.2 [facility] Comment on above: Performed By: #### L [id number] ####Librarian: JAZLYN JIMENEZ ([id number])[facility] [place] [address] Chloride [Moles/Vol] 107 mmol/L Normal 98-[address] [facility] Comment on above: Performed By: #### L [id number] ####Librarian: JAZLYN JIMENEZ ([phone])[facility])[address] [place] [address] CO2 [Moles/Vol] 24 mmol/L Normal 22-29 [facility] Comment on above: Performed By: #### L [id number] ####Librarian: JAZLYN JIMENEZ ([id number])[facility])[address] [place] [address] Creatinine [Mass/Vol] 1.42 mg/dL High 0.72-1.25 [facility] Comment on above: Performed By: #### L [id number] ####Librarian: JAZLYN JIMENEZ ([id number])[facility])[address] [place] [address] GLOMERULAR FILTRATION RATE ML/MIN/1.73 SQ M.PREDICTED 59.8 mL/min/1.73m*2 Low >60.0 [facility] Comment on above: Result Comment: Calc ulation based on the Chronic Kidney Disease Epidemiology Collaboration (CKD-EPI) equation refit without adjustment for race Performed By: #### L [id number] ####Librarian: JAZLYN JIMENEZ ([id number])[facility])[address] [place] [address] Glucose [Mass/Vol] 101 mg/dL High 74-100 [facility] Comment on above: Performed By: #### L [id number] ####Librarian: JAZLYN JIMENEZ ([id number])[facility])[address] [place] [address] Potassium [Moles/Vol] 3.7 mmol/L Normal 3.5-5.1 [facility] Comment on above: Result Comment: [facility] potassium values may be up to 0.5 mmol/L lower than serum values. Performed By: #### L AB17 ####Librarian: JAZLYN JIMENEZ ([id number])[facility])[address] [place] [address] Protein [Mass/Vol] 6.3 g/dL Low 6.4-8.3 [facility] Comment on above: Performed By: #### L [id number] ####Librarian: JAZLYN JIMENEZ ([id number])[facility])[address] [place] [address] Sodium [Moles/Vol] 137 mmol/L Normal 136-145 [facility] Comment on above: Performed By: #### L [id number] ####Librarian: JAZLYN JIMENEZ ([phone])[facility])[address] [place] [address] Urea nitrogen [Mass/Vol] 19 mg/dL Normal 9-23 [facility] Comment on above: Performed By: #### L [id number] ####Librarian: JAZLYN JIMENEZ ([id number])[facility])[address] [place] [address] Comprehensive metabolic 1998 panelon 11-09-2024 Albumin [Mass/Vol] 2.5 g/dL Low 3.5 - 5.0 g/dL [facility] ALP [Catalytic activity/Vol] 70 U/L 40 - 150 U/L [facility] ALT [Catalytic activity/Vol] U/L NINF - 40 U/L [facility] Anion gap [Moles/Vol] 6 mmol/L 3 - 13 mmol/L [facility] AST [Catalytic activity/Vol] 11 U/L NINF - 34 U/L [facility] Bilirubin [Mass/Vol] 0.4 mg/dL NINF - 1.2 mg/dL [facility] Calcium [Mass/Vol] 12.1 mg/dL High 8.4 - 10. 2 mg/dL [facility] Chloride [Moles/Vol] 107 mmol/L 98 - 10 7 mmol/L [facility] CO2 [Moles/Vol] 24 mmol/L 22 - 29 mmol/L [facility] Creatinine [Mass/Vol] 1.42 mg/dL High 0.72 - 1.25 mg/dL [facility] GFR/1.73 sq M.predicted (S/P/Bld) [Vol rate/Area] 59.8 mL/min Low - PINF [facility] Comment on above: Calculation based on the Chronic Kidney Disease Epidemiology Collaboration (CKD-EPI) equation refit without adjustment for race Glucose [Mass/Vol] 101 mg/dL High 74 - 100 mg/dL [facility] Interpretation and review of laboratory results Abnormal [facility] Potassium [Moles/Vol] 3.7 mmol/L 3.5 - 5.1 mmol/L [facility] Comment on above: Plasma potassium jeri ues may be up to 0.5 mmol/L lower than serum values. Protein [Mass/Vol] 6.3 g/dL Low 6.4 - 8.3 g/dL [facility] Sodium [Moles/Vol] 137 mmol/L 136 - 145 mmol/L [facility] Urea nitrogen [Mass/Vol] 19 mg/dL 9 - 23 mg/d L [facility] Consulton 11-09-2024 Consult Attestation signed by Cara [...] minutes (including chart/data review/analysis, care coordination, and [id number]-uuom encounter), and was spent discussing/counselin g the [...] & Acute Care Surgery Department of Surgery [facility] Department of General Surgery Surgical Service [...] He had (more content not included)... Normal [facility] ED Nursing Noteon 11-09-2024 ED Nursing Note This RN spoke to Enrique at transfer center for patient update. He stated that they are currently waiting for a bed assignment for the patient at [facility]. Normal [facility] MANUAL DIFFERENTIALon 2024 ANISOCYTOSIS PRESENCE IN BLOOD BY LIGHT MICROSCOPY Slight Abnormal (none) [facility] Comment on above: Performed By: #### L [id number], [id number] ####Librarian: JAZLYN JIMENEZ ([id number])[facility] ([facility])[address] [place] [address] [place] BAND NEUTROPHILS TOTAL PER COUNTED LEUKOCYTES BY MANUAL COUNT 5 Normal [facility] Comment on above: Performed By: #### L [id number], [id number] ####Librarian: JAZLYN JIMENEZ ([id number])[facility] ([facility])[address] [place] [address] [place] BANDS 0.7 10*3/uL High <=0.0 [facility] Comment on above: Performed By: #### L [id number], [id number] ####Librarian: JAZLYN JIMENEZ ([id number])[facility] ([facility])[address] [place] [address] [place] CELLS PRESENCE IN BLOOD BY LIGHT MICROSCOPY Slight Abnormal (none) [facility] Comment on above: Performed By: #### L [id number], [id number] ####Librarian: JAZLYN JIMENEZ ([id number])[facility])[address] [place] [address] CELLS COUNTED TOTAL (#) IN BLOOD 100 Normal [facility] Comment on above: Performed By: #### Kamila [id number], [id number] ####Librarian: JAZLYN JIMENEZ ([id number])[facility])[address] [place] [address] [place] DIFFERENTIAL METHOD Manual differential performed Normal [facility] Comment on above: Performed By: #### Kamila HS9062, [id number] ####Librarian: JAZLYN JIMENEZ ([id number])[facility])[address] [place] [address] [place] EOSINOPHILS (10*3/UL) IN BLOOD BY MANUAL COUNT 1.0 10*3/uL High 0.0-0.5 [facility] Comment on above: Performed By: #### L [id number], [id number] ####Librarian: JAZLYN JIMENEZ ([id number])[facility])[address] [place] [address] [place] EOSINOPHILS TOTAL PER COUNTED LEUKOCYTES BY MANUAL COUNT 8 High 0-1 [facility] Comment on above: Performed By: #### L [id number], [id number] ####Librarian: JAZLYN JIMENEZ ([id number])[facility] ([facility])[address] [place] [address] [place] EOSINOPHILS/100 LEUKOCYTES IN BLOOD BY MANUAL COUNT 8 % High 0-6 [facility] Comment on above: Performed By: #### L [id number], [id number] ####Librarian: JAZLYN JIMENEZ ([id number])[facility] [place] [address] [place] LEUKOCYTE MORPHOLOGY FINDING IN BLOOD Normal Normal [facility] Comment on above: Performed By: #### L [id number], [id number] ####Librarian: JAZLYN JIMENEZ ([id number])[facility] ([facility])[address] [place] [address] [place] LEUKOCYTES (10*3/UL) NUCLEATED ERYTHROCYTE ADJUST 13.0 10*3/uL High 3.6-10.7 [facility] Comment on above: Performed By: #### L [id number], [id number] ####Librarian: JAZLYN JIMENEZ ([id number])[facility] [place] [address] [place] LYMPHOCYTES (10*3/UL) IN BLOOD BY MANUAL COUNT 1.4 10*3/uL Normal 1.0-4.3 [facility] Comment on above: Performed By: #### L OH0427, [id number] ####Librarian: JAZLYN JIMENEZ ([id number])[facility] [place] [address] [place] LYMPHOCYTES TOTAL PER COUNTED LEUKOCYTES BY MANUAL COUNT 11 Normal [facility] Comment on above: Performed By: #### L [id number], [id number] ####Librarian: JAZLYN JIMENEZ ([id number])[facility] ([facility])[address] [place] [address] [place] LYMPHOCYTES/100 LEUKOCYTES IN BLOOD BY MANUAL COUNT 11 % Low 15-45 [facility] Comment on above: Performed By: #### L [id number], [id number] ####Librarian: JAZLYN JIMENEZ ([id number])[facility] ([facility])[address] [place] [address] [place] MACROCYTES (PRESENCE) IN BLOOD BY LIGHT MICROSCOPY Slight Abnormal (none) [facility] Comment on above: Performed By: #### L [id number], [id number] ####Librarian: JAZLYN JIMENEZ ([id number])[facility])[address] [place] [address] MONOCYTES (10*3/UL) IN BLOOD BY MANUAL COUNT 1.0 10*3/uL High 0.0-0.9 [facility] Comment on above: Performed By: #### L [id number], [id number] ####Librarian: JAZLYN JIMENEZ ([id number])[facility])[address] [place] [address] MONOCYTES TOTAL PER COUNTED LEUKOCYTES BY MANUAL COUNT 8 Normal [facility] Comment on above: Performed By: #### L NJ1018, [id number] ####Librarian: JAZLYN JIMENEZ ([id number])[facility] ([facility])[address] [place] [address] [place] MONOCYTES/100 LEUKOCYTES IN BLOOD BY MANUAL COUNT 8 % Normal 5-13 [facility] Comment on above: Performed By: #### L [id number], [id number] ####Librarian: JAZLYN JIMENEZ ([phone])[facility])[address] [place] [address] NEUTROPHILS (SEGS+BANDS) (10*3/UL) BY MANUAL COUNT 9.5 10*3/uL High 1.8-7.0 [facility] Comment on above: Performed By: #### L [id number], [id number] ####Librarian: JAZLYN JIMENEZ ([id number])[facility])[address] [place] [address] [place] NEUTROPHILS BAND FORM/100 LEUKOCYTES IN BLOOD BY MANUAL COUNT 5 % High <=0 [facility] Comment on above: Performed By: #### L [id number], [id number] ####Librarian: JAZLYN JIMENEZ ([id number])[facility])[address] [place] [address] [place] NEUTROPHILS TOTAL PER COUNTED LEUKOCYTES BY MANUAL COUNT 68 Normal [facility] Comment on above: Performed By: #### L [id number], [id number] ####Librarian: JAZLYN JIMENEZ ([id number])[facility] ([facility])[address] [place] [address] OVALOCYTES PRESENCE IN BLOOD BY LIGHT MICROSCOPY Slight Abnormal (none) [facility] Comment on above: Performed By: #### L [id number], [id number] ####Librarian: JAZLYN JIMENEZ ([id number])[facility] ([facility])[address] [place] [address] PLATELET MORPHOLOGY IN BLOOD Normal Normal [facility] Comment on above: Performed By: #### L [id number], [id number] ####Librarian: JAZLYN JIMENEZ ([phone])[facility] ([facility])[address] [place] [address] POIKILOCYTOSIS (PRESENCE) IN BLOOD BY LIGHT MICROSCOPY Slight Abnormal (none) [facility] Comment on above: Performed By: #### L [id number], [id number] ####Librarian: JAZLYN JIMENEZ ([id number])[facility] ([facility])[address] [place] [address] SEGEMENTED NEUTROPHILS/100 LEUKOCYTES BY MANUAL COUNT 68 % Normal 38-82 [facility] Comment on above: Performed By: #### L [id number], [id number] ####Librarian: JAZLYN JIMENEZ ([id number])[facility] ([facility])[address] [place] [address] SEGMENTED NEUTROPHILS (10*3/UL)IN BLOOD BY MANUAL COUNT 9.5 10*3/uL High 1.8-7.5 [facility] Comment on above: Performed By: #### L [id number], [id number] ####Librarian: JAZLYN JIMENEZ ([id number])[facility] ([facility])[address] [place] [address] [employer]ARGET CELLS IN BLOOD BY LIGHT MICROSCOPY Slight Abnormal (none) [facility] Comment on above: Performed By: #### L [id number], [id number] ####Librarian: JAZLYN JIMENEZ ([id number])[address] Manual differential performe d Ql (Bld)Ordered By: Flores Rausch on 11-09-2024 Anisocytosis Ql (Bld) Slight Abnormal (none) [facility] Band form neutrophils (Bld) [#/Vol] 0.7 10*3/uL High NINF - 0.0 10*3/uL [facility] Band form neutrophils/100 WBC (Bld) 5 % High NINF - 0 % [facility] B[facility] Manual 5 [facility] [place] cells LM Ql (Bld) Slight Abnormal (none) [facility] Cells Counted Total (Bld) [#] 100 {cells} [facility] Differential Method Manual differential performed [facility] Eosinophils (Bld) [#/Vol] 1 10*3/uL High 0.0 - 0.5 10*3/uL [facility] Eosinophils Manual 8 High 0 - [address] [facility] Eosinophils/100 WBC (Bld) 8 % High 0 - 6 % [facility] Interpretation and review of laboratory results Abnormal [facility] Leukocyte morphology finding Nom (Bld) Normal [facility] Lymphocytes (Bld) [#/Vol] 1.4 10*3/uL 1.0 - 4.3 10*3/uL [facility] Lymphocytes Manual [address] [facility] Lymphocytes/100 WBC (Bld) 11 % Low 15 - 45 % [facility] Macrocytes Ql (Bld) Slight Abnormal (none) [facility] Monocytes (Bld) [#/Vol] 1 10*3/uL High 0.0 - 0.9 10*3/uL [facility] Monocytes Manual 8 [facility] Mon[facility]/100 WBC (Bld) 8 % 5 - 13 % [facility] Neutrophils (Bld) [#/Vol] 9.5 10*3/uL High 1.8 - 7.5 10*3/uL [facility] Neutrophils Manual [address] [facility] Ovalocytes LM Ql (Bld) Slight Abnormal (none) [facility] Platelet morphology finding Nom (Bld) Normal [facility] Poikilocytosis LM Ql (Bld) Slight Abnormal (none) [facility] Segmented neutrophils/100 WBC (Bld) 68 % 38 - 82 % [facility] Target cells LM Ql (Bld) Slight Abnormal (none) [facility] WBC corrected for nucl RBC (Bld) [#/Vol] 13 10*3/uL High 3.6 - 10.7 10*3/uL [facility] Nursing Noteon 11-09-2024 Nursing Note transfer center called, stated still no bed are available but checking on if any changes in pt condition. Updated vitals given and isolation status confirmed. Enrique at the transfer center given unit phone number and he stated they will reach out when bed available. Normal [facility] Progress Noteon 11-09-2024 Progress Note Patient is accepted for transfer to pending bed availability. Will continue to monitor on antibiotics. Will hold off on US or biopsy of enhancing lesion at this time, although in the setting of recent infection the etiology is most likely infectious. Surgical team has signed off. Normal [facility] BLOOD CULTUREon 11-08-2024 Bacteria identified Cx Nom (Bld) BLOOD CULTURE Reference No growth at 5 days ORDER COMMENTS: Hidradenitis Blood Collection Site: Left Arm [ S = SUSCEPTIBLE R = RESISTANT I = INTERMEDIATE S-DD = Susceptible-dose dependent NS = Non-susceptible NO = No Interpretation ] Normal [facility] Comment on above: Performed By: #### L [id number], [id number] #### Librarian: JAZLYN JIMENEZ ([id number]) [address] Bacteria identified Cx Nom (Bld) BLOOD CULTURE Reference No growth at 5 days ORDER COMMENTS: Blood Collection Site: Right Arm [ S = SUSCEPTIBLE R = RESISTANT I = INTERMEDIATE S-DD = Susceptible-dose dependent NS = Non-susceptible NO = No Interpretation ] [facility] Comment on above: Performed By: #### L [id number], [id number] #### Librarian: JAZLYN JIMENEZ ([id number]) [address] CBC W Auto Differential pane l (Bld)Ordered By: Vielka Cortez on 11-08-2024 Basophils (Bld) [#/Vol] 0.1 10*3/uL 0.0 - 0.2 10*3/uL [facility] Basophils/100 WBC (Bld) 0.5 % 0.0 - 2.0 % [facility] Eosinophils (Bld) [#/Vol] 0.2 10*3/uL 0.0 - 0.5 10*3/uL [facility] Eosinophils/100 WBC (Bld) 1.4 % 0.0 - 6.0 % [facility] Erythrocyte distribution width (RBC) [Ratio] 16.5 % High 11.5 - 15.0 % [facility] Hematocrit (Bld) [Volume fraction] 31.1 % Low 40.0 - 52.0 % [facility] Hemoglobin (Bld) [Mass/Vol] 10.4 g/dL Low 13.0 - 18.0 g/dL [facility] Immature granulocytes (Bld) [#/Vol] 0.1 10*3/uL High NINF - 0.1 10*3/uL [facility] Immature granulocytes/100 WBC (Bld) 0.5 % 0.0 - 2.0 % [facility] Interpretation and review of laboratory results Abnormal [facility] Lymphocytes (Bld) [#/Vol] 1.6 10*3/uL 1.0 - 4.3 10*3/uL [facility] Lymphocytes/100 WBC (Bld) 11.7 % Low 15.0 - 45.0 % [facility] MCH (RBC) [Entitic mass] 28.3 pg 26. 0 - 34.0 pg [facility] MCHC (RBC) [Mass/Vol] 33.4 % 30.5 - 36.0 % [facility] MCV (RBC) [Entitic vol] 84.5 fL 77.0 - 99.[address] [facility] Monocytes (Bld) [#/Vol] 1.5 10*3/uL High 0.0 - 0.9 10*3/uL [facility] Monocytes/100 WBC (Bld) 10.9 % 5.0 - 13.0 % [facility] Neutrophils (Bld) [#/Vol] 10.4 10*3/uL High 1.8 - 7.5 10*3/uL [facility] Neutrophils/100 WBC (Bld) 75 % 38.0 - 82.0 % [facility] Nucleated RBC/100 WBC (Bld) [Ratio] 0 % [facility] Platelet mean volume (Bld) [Entitic vol] 9.5 fL 9.0 - 12.7 fL [facility] Platelets (Bld) [#/Vol] 634 10*3/uL High 140 - 440 10*3/uL [facility] RBC (Bld) [#/Vol] 3.68 10*6/uL Low 4.40 - 5.9 0 10*6/uL [facility] WBC (Bld) [#/Vol] 13.9 10*3/uL High 3.6 - 10.7 10*3/uL [facility] CBC WITH AUTO DIFFERENTIALon 11-08-2024 Basophils (Bld) [#/Vol] 0.1 10*3/uL Normal 0.0-0.2 [facility] Comment on above: Performed By: #### L [id number] ####Librarian: JAZLYN JIMENEZ ([id number])[facility])[address] [place] [address] Basophils/100 WBC (Bld) 0.5 % Normal 0.0-2.0 [facility] Comment on above: Performed By: #### L [id number] ####Librarian: JAZLYN JIMENEZ ([id number])[facility])[address] [place] [address] Eosinophils (Bld) [#/Vol] 0.2 10*3/uL Normal 0.0-0.5 [facility] Comment on above: Performed By: #### L [id number] ####Librarian: JAZLYN JIMENEZ ([id number])[facility])[address] [place] [address] Eosinophils/100 WBC (Bld) 1.4 % Normal 0.0-6.0 [facility] Comment on above: Performed By: #### L [id number] ####Librarian: JAZLYN JIMENEZ ([id number])[facility])[address] [place] [address] Erythrocyte distribution width (RBC) [Ratio] 16.5 % High 11.5-15.0 [facility] Comment on above: Performed By: #### L [id number] ####Librarian: JAZLYN JIMENEZ ([id number])[facility])[address] [place] [address] Hematocrit (Bld) [Volume fraction] 31.1 % Low 40.0-52.0 [facility] Comment on above: Performed By: #### L [id number] ####Librarian: JAZLYN JIMENEZ ([id number])[facility])[address] [place] [address] Hemoglobin (Bld) [Mass/Vol] 10.4 g/dL Low 13.0-18.0 [facility] Comment on above: Performed By: #### L [id number] ####Librarian: JAZLYN JIMENEZ ([id number])[facility])[address] [place] [address] IMMATURE GRANS % 0.5 % Normal 0.0-2.0 [facility] Comment on above: Performed By: #### L [id number] ####Librarian: JAZLYN JIMENEZ ([id number])[facility])[address] [place] [address] IMMATURE GRANS ABSOLUTE 0.1 10*3/uL High <0.1 [facility] Comment on above: Performed By: #### L [id number] ####Librarian: JAZLYN JIMENEZ ([id number])[facility])[address] [place] [address] Lymphocytes (Bld) [#/Vol] 1.6 10*3/uL Normal 1.0-4.3 [facility] Comment on above: Performed By: #### L [id number] ####Librarian: JAZLYN JIMENEZ ([id number])[facility])[address] [place] [address] Lymphocytes/100 WBC (Bld) 11.7 % Low 15.0-45.0 [facility] Comment on above: Performed By: #### L [id number] ####Librarian: JAZLYN JIMENEZ ([id number])[facility])[address] [place] [address] MCH (RBC) [Entitic mass] 28.3 pg Normal 26.0-34.0 [facility] Comment on above: Performed By: #### L [id number] ####Librarian: JAZLYN JIMENEZ ([id number])[facility])[address] [place] [address] MCHC 33.4 % Normal 30.5-36.0 [facility] Comment on above: Performed By: #### L [id number] ####Librarian: JAZLYN JIMENEZ ([id number])[facility])[address] [place] [address] MCV (RBC) [Entitic vol] 84.5 fL Normal 77.0-99.0 [facility] Comment on above: Performed By: #### L [id number] ####Librarian: JAZLYN JIMENEZ ([id number])[facility])[address] [place] [address] Monocytes (Bld) [#/Vol] 1.5 10*3/uL High 0.0-0.9 [facility] Comment on above: Performed By: #### L [id number] ####Librarian: JAZLYN JIMENEZ ([id number])[facility])[address] [place] [address] Monocytes/100 WBC (Bld) 10.9 % Normal 5.0-13.0 [facility] Comment on above: Performed By: #### L [id number] ####Librarian: JAZLYN JIMENEZ ([id number])[facility])[address] [place] [address] NEUTROPHILS ABSOLUTE 10.4 10*3/uL High 1.8-7.5 [facility] Comment on above: Performed By: #### L [id number] ####Librarian: JAZLYN JIMENEZ ([id number])[facility])[address] [place] [address] Neutrophils/100 WBC (Bld) 75.0 % Normal 38.0-82.0 [facility] Comment on above: Performed By: #### L [id number] ####Librarian: JAZLYN JIMENEZ ([id number])[facility])[address] [place] [address] NRBC 0.0 /100 WBCs Normal 0.0-2.0 [facility] Comment on above: Performed By: #### L [id number] ####Librarian: JAZLYN JIMENEZ ([id number])[facility])[address] [place] [address] Platelet mean volume (Bld) [Entitic vol] 9.5 fL Normal 9.0-12.7 [facility] Comment on above: Performed By: #### L [id number] ####Librarian: JAZLYN JIMENEZ ([id number])[facility])[address] [place] [address] Platelets (Bld) [#/Vol] 634 10*3/uL High 140-440 [facility] Comment on above: Performed By: #### L [id number] ####Librarian: JAZLYN JIMENEZ ([id number])[facility])[address] [place] [address] RBC (Bld) [#/Vol] 3.68 10*6/uL Low 4.40-5.90 [facility] Comment on above: Performed By: #### L [id number] ####Librarian: JAZLYN JIMENEZ ([id number])[facility])[address] [place] [address] WBC (Bld) [#/Vol] 13.9 10*3/uL High 3.6-10.7 [facility] Comment on above: Performed By: #### L [id number] ####Librarian: JAZLYN JIMENEZ ([id number])[facility])[address] [place] [address] COMPLETE URINALYSISon 2024 BILIRUBIN, TOTAL PRESENCE IN URINE Negative Normal Negative [facility] Comment on above: Performed By: #### L [id number] ####Librarian: JAZLYN JIMENEZ ([id number])[facility] ([facility])[address] [place] [address] Clarity (U) Clear Normal Clear [facility] Comment on above: Performed By: #### L [id number] ####Librarian: JAZLYN JIMENEZ ([id number])[facility] [place] [address] Color (U) Light Yellow Normal Lt. Yellow [facility] Comment on above: Performed By: #### L [id number] ####Librarian: JAZLYN JIMENEZ ([id number])[facility] [place] [address] GLUCOSE (MG/DL) IN URINE Normal Normal Normal (<70 ) [facility] Comment on above: Performed By: #### L [id number] ####Librarian: JAZLYN JIMENEZ ([id number])[facility])[address] [place] [address] HEMOGLOBIN PRESENCE IN URINE Negative Normal Negative [facility] Comment on above: Performed By: #### L [id number] ####Librarian: JAZLYN JIMENEZ ([id number])[facility])[address] [place] [address] Ketones Ql (U) Negative Normal Negative [facility] Comment on above: Performed By: #### L [id number] ####Librarian: JAZLYN JIMENEZ ([id number])[facility])[address] [place] [address] LEUKOCYTE ESTERASE PRESENCE IN URINE BY TEST STRIP Negative Normal Negative [facility] Comment on above: Performed By: #### L [id number] ####Librarian: JAZLYN JIMENEZ ([id number])[facility])[address] [place] [address] NITRITE PRESENCE IN URINE Negative Normal Negative [facility] Comment on above: Performed By: #### L [id number] ####Librarian: JAZLYN JIMENEZ ([id number])[facility])[address] pH (U) 5.5 [pH] Normal 5.0-8.0 [facility] Comment on above: Performed By: #### L [id number] ####Librarian: JAZLYN JIMENEZ ([id number])[facility])[address] [place] [address] Protein (U) [Mass/Vol] Negative Normal Negative [facility] Comment on above: Performed By: #### L [id number] ####Librarian: JAZLYN JIMENEZ ([id number])[facility])[address] [place] [address] Specific gravity (U) [Rel density] 1.017 Normal 1.005-1.030 [facility] Comment on above: Performed By: #### L [id number] ####Librarian: JAZLYN JIMENEZ ([id number])[facility])[address] [place] [address] UROBILINOGEN (MG/DL) IN URINE Normal Normal Normal (0-1) [facility] Comment on above: Performed By: #### L [id number] ####Librarian: JAZLYN JIMENEZ ([id number])[facility])[address] [place] [address] COMPREHENSIVE METABOLIC PANE Yuriy 11-08-2024 Albumin [Mass/Vol] 3.0 g/dL Low 3.5-5.0 [facility] Comment on above: Performed By: #### L AB17, [id number] ####Librarian: JAZLYN JIMENEZ ([id number])[facility])[address] [place] [address] ALP [Catalytic activity/Vol] 84 U/L Normal 40-150 [facility] Comment on above: Performed By: #### L AB17, [id number] ####Librarian: JAZLYN JIMENEZ ([id number])[facility])[address] [place] [address] ALT [Catalytic activity/Vol] 7 U/L Normal <40 [facility] Comment on above: Performed By: #### L AB17, [id number] ####Librarian: JAZLYN JIMENEZ ([id number])[facility] [place] [address] Anion gap [Moles/Vol] 10 mmol/L Normal 3-13 [facility] Comment on above: Performed By: #### L AB17, [id number] ####Librarian: JAZLYN JIMENEZ ([id number])[facility] [place] [address] AST [Catalytic activity/Vol] 14 U/L Normal <34 [facility] Comment on above: Performed By: #### L AB17, [id number] ####Librarian: JAZLYN JIMENEZ ([id number])[facility])[address] [place] [address] Bilirubin [Mass/Vol] 0.5 mg/dL Normal <1.2 [facility] Comment on above: Performed By: #### L AB17, [id number] ####Librarian: JAZLYN JIMENEZ ([id number])[facility] [place] [address] Calcium [Mass/Vol] 13.5 mg/dL High 8.4-10.2 [facility] Comment on above: Performed By: #### L AB17, [id number] ####Librarian: JAZLYN JIMENEZ ([id number])[facility])[address] [place] [address] [place] Chloride [Moles/Vol] 103 mmol/L Normal 98-107 [facility] Comment on above: Performed By: #### L AB17, [id number] ####Librarian: JAZLYN JIMENEZ ([id number])[facility])[address] [place] [address] [place] CO2 [Moles/Vol] 24 mmol/L Normal 22-29 [facility] Comment on above: Performed By: #### L AB17, [id number] ####Librarian: JAZLYN JIMENEZ ([id number])[facility])[address] [place] [address] Creatinine [Mass/Vol] 1.39 mg/dL High 0.72-1.25 [facility] Comment on above: Performed By: #### L 17, [id number] ####Librarian: JAZLYN JIMENEZ ([phone])[facility])[address] [place] [address] GLOMERULAR FILTRATION RATE ML/MIN/1.73 SQ M.PREDICTED 61.4 mL/min/1.73m*2 Normal >60.0 [facility] Comment on above: Result Comment: Calc ulation based on the Chronic Kidney Disease Epidemiology Collaboration (CKD-EPI) equation refit without adjustment for race Performed By: #### Kamila RODAS, [id number] ####Librarian: JAZLYN JIMENEZ ([id number])[facility])[address] [place] [address] Glucose [Mass/Vol] 104 mg/dL High 74-100 [facility] Comment on above: Performed By: #### Kamila BRANHAM17, [id number] ####Librarian: JAZLYN JIMENEZ ([id number])[facility])[address] [place] [address] Potassium [Moles/Vol] 4.2 mmol/L Normal 3.5-5.1 [facility] Comment on above: Result Comment: [facility] potassium values may be up to 0.5 mmol/L lower than serum values. Performed By: #### Kamila BRANHAM17, [id number] ####Librarian: JAZLYN JIMENEZ ([id number])[facility])[address] [place] [address] Protein [Mass/Vol] 7.7 g/dL Normal 6.4-8.3 [facility] Comment on above: Performed By: #### L AB17, [id number] ####Librarian: JAZLYN JIMENEZ ([id number])[facility])[address] [place] [address] [place] Sodium [Moles/Vol] 137 mmol/L Normal 136-145 [facility] Comment on above: Performed By: #### L AB17, [id number] ####Librarian: JAZLYN JIMENEZ ([id number])[facility] [place] [address] Urea nitrogen [Mass/Vol] 21 mg/dL Normal 9-23 [facility] Comment on above: Performed By: #### L AB17, [id number] ####Librarian: JAZLYN JIMENEZ ([id number])[facility] [place] [address] CT PELVIS W IV CONTR[address] PELVIS [...] on back from abscesses. Pt arrives from [facility] for possible sepsis. Had wound on buttock drained at in Sep. Has not had IV antibiotics at facility. Hx of rare skin condition with frequent abscesses. Aox4. Some N/V. Hypotensive 80-90 systolic. Normal [facility] CT Pelvis W contrast Mp 1. 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 [facility] Julio Sears MD - 11/08/2024 [facility] Name[facility] LA [facility] 1975 [id number] Exam Date/Time: 11/08/2024 16:38 Procedure: CT PELVIS [...] MD Electronically Signed Date/Time: 11/08/2024 5:20 PM [facility] Radiology Study observation (narrative) [facility] Pelvis W contrast IVOrder ed By: Julio Sears on 11-08-2024 [facility] Work Phone: Comprehensive metabolic 1998 panelon 11-08-2024 Albumin [Mass/Vol] 3 g/dL Low 3.5 - 5.0 g/dL [facility] ALP [Catalytic activity/Vol] 84 U/L 40 - 150 U/L [facility] ALT [Catalytic activity/Vol] 7 U/L NINF - 40 U/L [facility] Anion gap [Moles/Vol] 10 mmol/L 3 - 13 mmol/L [facility] AST [Catalytic activity/Vol] 14 U/L NINF - 34 U/L [facility] Bilirubin [Mass/Vol] 0.5 mg/dL NINF - 1.2 mg/dL [facility] Calcium [Mass/Vol] 13.5 mg/dL High 8.4 - 10. 2 mg/dL [facility] Chloride [Moles/Vol] 103 mmol/L 98 - 10 7 mmol/L [facility] CO2 [Moles/Vol] 24 mmol/L 22 - 29 mmol/L [facility] Creatinine [Mass/Vol] 1.39 mg/dL High 0.72 - 1.25 mg/dL [facility] GFR/1.73 sq M.predicted (S/P/Bld) [Vol rate/Area] 61.4 mL/min - PINF [facility] Comment on above: Calculation based on the Chronic Kidney Disease Epidemiology Collaboration (CKD-EPI) equation refit without adjustment for race Glucose [Mass/Vol] 104 mg/dL High 74 - 100 mg/dL [facility] Interpretation and review of laboratory results Abnormal [facility] Potassium [Moles/Vol] 4.2 mmol/L 3.5 - 5.1 mmol/L [facility] Comment on above: Plasma potassium jeri ues may be up to 0.5 mmol/L lower than serum values. Protein [Mass/Vol] 7.7 g/dL 6.4 - 8.3 g/dL [facility] Sodium [Moles/Vol] 137 mmol/L 136 - 145 mmol/L [facility] Urea nitrogen [Mass/Vol] 21 mg/dL 9 - 23 mg/d L [facility] Consulton 11-08-2024 Consult Pharmacy Managed Vancomycin [...] creatinine, and vancomycin levels interfaced automatically to [employer] and data has been analyzed and interpreted. [...] William Clinical Pharmacist Available via Secure Chat [facility] ED Nursing Noteon 11-08-2024 ED Nursing Note Provider messaged about BP and MAP [facility] ED Nursing Note Provider messaged about orders [facility] ED Nursing Note Patient requested pain medication and dinner. This nurse messaged provider [facility] ED Nursing Note Patient is aware of patients BP and MAP. [facility] ED Nursing Note Liter of NS hung for systolic of 88. IV obtained with blood work and first set of cultures. Will notify doctor of BP. [facility] ED Provider Noteon ED Provider Note Emergency Department Encounter Location: [facility] Patient: [...] 1.8 - (more content not included)... Normal [facility] ED Provider Note EMERGENCY DEPARTMENT ENCOUNTER [...] Resource Strain: Medium Risk (10/12/2024) Received from [facility] Overall Financial Resource Strain (CARDIA) Difficulty of Paying Living Expenses: Somewhat hard Food Insecurity: Food Insecurity Present (10/11/2024) Received from [facility] Hunger Vital Sign Worried About Running Out of Food in the Last Year: Sometimes true Ran Out of Food in the Last Year: Sometimes true Transportation Needs: No Transportation Needs (10/12/2024) Received from [facility] PRAPARE - Transportation Lack of Transportation (Medical): No Lack of Transportation (Non-Medical): No Intimate Partner Violence: Not At Risk (10/11/2024) Received from [facility] Humiliation, Afraid, Rape, and Kick questionnaire Fear of Current or Ex-Partner: No Emotionally Abused: No Physically Abused: No Sexually Abused: No Housing Stability: Low Risk (10/12/2024) Received from [facility] Housing Stability Vital Sign Unable to Pay for Housing in the Last Year: No Number of Times Moved in the Last Year: 1 Homeless in the Last Year: No Recent Concern: Housing Stability - High Risk (09/17/2024) Received from [facility] Housing Stability Vital Sign Unable to Pay [...] Emergency Physic (more content not included)... Normal [facility] ED Provider Note Emergency Department Encounter [facility] Patient: Kevan La : [...] pressure and wound check. Patient coming from [facility] for possible sepsis. Patient has chronic [...] Solutions Fer Kennedy MD 11/08/24 1651 Normal [facility] HEMOGLOBIN A1Con 11-08-2024 Glucose [Mass/Vol] 103 mg/dL Normal [facility] Comment on above: Result Comment: MAYRA Dhillon COMMENTS: HbA1c values of 5.7-6.4 percent indicate an increased risk for developing diabetes mellitus. HbA1c values greater than or equal to 6.5 percent are diagnostic of diabetes mellitus. For diagnosis of diabetes in individuals without unequivocal hyperglycemia, results should be confirmed by repeat testing. Performed By: #### L AB90 ####Librarian: JAZLYN JIMENEZ ([phone])[facility] ([facility])[address] [place] [address] HEMOGLOBIN A1C 5.2 %HbA1C Normal <5.7 [facility] Comment on above: Result Comment: Norm al less than 5.7% Prediabetes 5.7% to 6.4% Diabetes 6.5% or higher --HgbA1C levels may not be accurate in patients who have renal disease, received recent blood transfusions, are anemic, or who have dyshemoglobinemia. Performed By: #### L AB90 ####Librarian: JAZLYN JIMENEZ ([id number])[facility] [place] [address] LACTIC ACID WITH REFLEXon Lactate [Moles/Vol] 1.2 mmol/L Normal 0.5-2.2 [facility] Comment on above: Performed By: #### L [id number] ####Librarian: JAZLYN JIMENEZ ([id number])[facility] ([facility])[address] [place] [address] Laboratory - Chemistry and C hemistry - challengeon 11-08-2024 Average glucose Estimated from glycated hemoglobin (Bld) [Mass/Vol] 103 mg/dL [facility] [place] TSH Qn 0.84 m[IU]/L [facility] Lactate [Moles/Vol] 1.2 mmol/L 0.5 - 2. 2 mmol/L [facility] Laboratory - Hematology and Cell countson 11-08-2024 HbA1c (Bld) [Mass fraction] 5.2 % [facility] Comment on above: Normal less than 5.7 [...] results should be confirmed by repeat testing. [facility] [place] Interpretation and review of laboratory results Normal [facility] THYROID STIMULATING HORMONEo n 11-08-2024 THYROID STIMULATING HORMONE 0.84 uIU/mL Normal 0.35-4.94 [facility] Comment on above: Performed By: #### L AB17, [id number] ####Librarian: JAZLYN JIMENEZ ([id number])[facility] ([facility])[address] [place] [address] TSH Qnon 11-08-2024 Interpretation and review of laboratory results Normal [facility] Urinalysis complete panel (U )on 11-08-2024 Bilirubin Ql (U) Negative Negative mg/dL [facility] Clarity (U) Clear Clear [facility] Color (U) Light Yellow Lt. Yellow [facility] Glucose Ql (U) Normal Normal (<70) mg/dL [facility] Hemoglobin Ql (U) Negative Negative mg/dL [facility] Interpretation and review of laboratory results Normal [facility] Ketones (U) [Mass/Vol] Negative Negat sulema mg/dL [facility] Leukocyte esterase Test strip Ql (U) Negative Negative Gabe/uL [facility] Nitrite Ql (U) Negative Negative [facility] th pH (U) 5.5 [pH] 5.0 - 8.0 pH [facility] Protein (U) [Mass/Vol] Negative Negat sulema mg/dL [facility] Specific gravity (U) [Rel density] 1.017 1.005 - 1.030 [facility] Urobilinogen (U) [Mass/Vol] Normal Normal (0-1) mg/dL [facility] 74-SG-Ojyxvcm DOrdered By: Vanda Nolasco on 10-24-2024 Vitamin D 25-Hydroxy 63.4 ng/mL [facility] Comment on above: Vitamin D 25(OH) Sta tus Range Deficiency <20 ng/mL (50nmol/L) Insufficiency 20 - 30 ng/mL (50 - 75 nmol/L) Sufficiency 30 - 100 ng/mL (75 - 250 nmol/L) Toxicity >100 ng/mL (>250 nmol/L) Blood urea nitrogen (BUN)/cr eatinine ratioOrdered By: Julio Nolasco on 10-24-2024 Urea nitrogen/Creatinine [Mass ratio] 14.0 mg/mg 10-20 [facility] Carbon dioxide measurementOr dered By: Julio Nolasco on 10-24-2024 CO2 [Moles/Vol] 26.0 mmol/L 21.0-32.0 [facility] Chloride measurementOrdered By: Julio Nolasco on 10-24-2024 Chloride [Moles/Vol] 104 mmol/L 98-107 [facility] Erythrocyte distribution wid th (RBC) [Ratio]Ordered By: Julio Nolasco on 10-24-2024 Erythrocyte distribution width (RBC) [Entitic vol] 60.6 fL High 35.1-43.9 [facility] [facility] Erythrocyte distribution wid th ratioOrdered By: Julio Nolasco on 10-24-2024 Erythrocyte distribution width (RBC) [Ratio] 18.5 % High 11.6-14.6 [facility] Estimated glomerular filtrat ion rate (GFR) AmericanOrdered By: Julio Nolasco on 10-24-2024 Estimated GFR (MDRD) Amer 75 mL/min >60 [facility] Comment on above: GFR Calc Glomerular filtration rate ( GFR) estimationOrdered By: Julio Nolasco on 10-24-2024 Estimated GFR (MDRD) Non-Af Amer 62 mL/min >60 [facility] Comment on above: Non- GFR Calc Glucose measurementOrdered B y: Julio Nolasco on 10-24-2024 Glucose [Mass/Vol] 95 mg/dL 74-106 [facility] Hematocrit Auto (Bld) [Volum e fraction]Ordered By: Julio Nolasco on 10-24-2024 Hematocrit (Bld) [Volume fraction] 26.4 % Low 40-54 [facility] Hemoglobin A1c percentageOrd ered By: Julio Nolasco on 10-24-2024 HbA1c (Bld) [Mass fraction] 5.2 % 3.8-5.6 [facility] Comment on above: Normal < 5.7 % Predi abetic 5.7 - 6.4 % Diabetic >or= 6.5 % Please note range changes. Hemoglobin measurementOrdere d By: Julio Nolasco on 10-24-2024 Hemoglobin (Bld) [Mass/Vol] 8.4 g/dL Low 13.0-16.5 [facility] High density lipoprotein (HD L) measurementOrdered By: Julio Nolasco on 10-24-2024 Cholesterol in HDL [Mass/Vol] 38 mg/dL Low >40 [facility] Comment on above: The drugs N-Acetylcy steine and Metamizole may falsely depress this assay. Reference Range HDL <40 mg/dL Low HDL Cholesterol HDL >or= 60 mg/dL High HDL Cholesterol Low density lipoprotein (LDL ) cholesterol measurementOrdered By: Julio Nolasco on 10-24-2024 Cholesterol in LDL [Mass/Vol] 96 mg/dL 0-130 [facility] MCV (mean corpuscular volume ) determinationOrdered By: Julio Nolasco on 10-24-2024 MCV (RBC) [Entitic vol] 89.5 fL 80-94 [facility] Mean corpuscular hemoglobin (MCH) determinationOrdered By: Julio Nolasco on 10-24-2024 MCH (RBC) [Entitic mass] 28.5 pg 27.0-32.0 [facility] Mean corpuscular hemoglobin concentration (MCHC) determinationOrdered By: Julio Nolasco on 10-24-2024 MCHC (RBC) [Mass/Vol] 31.8 g/dL Low 32-36 [facility] Mean platelet volume determi nationOrdered By: Julio Nolasco on 10-24-2024 Platelet mean volume (Bld) [Entitic vol] 8.7 fL 6.2-12.0 [facility] Platelet countOrdered By: Antwon Nolasco on 10-24-2024 Platelets (Bld) [#/Vol] 536 10*3/uL High 150-450 [facility] Potassium measurementOrdered By: Julio Nolasco on 10-24-2024 Potassium [Moles/Vol] 4.0 mmol/L 3.5-5.1 [facility] RBC Auto (Bld) [#/Vol]Ordere d By: Julio Nolasco on 10-24-2024 RBC (Bld) [#/Vol] 2.95 10*6/uL Low 4.6-6.2 [facility] Serum anion gap measurementO rdered By: Julio Nolasco on 10-24-2024 Anion gap [Moles/Vol] 7 mmol/L 5-15 [facility] Serum or plasma calcium mervat urement (mass/volume)Ordered By: Julio Nolasco on 10-24-2024 Calcium [Mass/Vol] 10.3 mg/dL High 8.5-10.1 [facility] Serum or plasma cholesterol measurement (mass/volume)Ordered By: Julio Nolasoc on 10-24-2024 Cholesterol [Mass/Vol] 164 mg/dL <200 [facility] Comment on above: <200 mg/dL Desirable 200-240 mg/dL Borderline >240 mg/dL High Risk Serum or plasma creatinine m easurement (mass/volume)Ordered By: Julio Nolasco on 10-24-2024 Creatinine [Mass/Vol] 1.29 mg/dL 0.70-1.30 [facility] Comment on above: The validity of the calculated GFR & GFRAA in patients over 70 years has not been determined. Clinical correlation is essential. Serum or plasma urea nitroge n measurement (mass/volume)Ordered By: Julio Nolasco on 10-24-2024 Urea nitrogen [Mass/Vol] 18 mg/dL 7-18 [facility] Sodium levelOrdered By: William Nolasco on 10-24-2024 Sodium [Moles/Vol] 137 mmol/L 136-145 [facility] TSH QnOrdered By: Julio johnson on 10-24-2024 Thyroid Stimulating Hormone (TSH) 5.030 uIU/mL High 0.358-3.740 [facility] Triglycerides measurementOrd ered By: Julio Nolasco on 10-24-2024 Triglyceride [Mass/Vol] 150 mg/dL <199 [facility] Comment on above: The drugs N-Acetylcy steine and Metamizole may falsely depress this assay.Serum Triglycerides Reference Interval Normal <150 mg/dL Borderline high 150 - 199 mg/dL High 200 - 499 mg/dL Very High > or = 500 mg/dL Very low density lipoprotein (VLDL) cholesterol measurementOrdered By: Julio Nolasco on 10-24-2024 VLDL Cholesterol 30 mg/dL 5-40 [facility] White blood cell (WBC) count Ordered By: Julio Nolasco on 10-24-2024 WBC (Bld) [#/Vol] 12.2 10*3/uL High 4.4-11.0 [facility] Basic metabolic 2000 panelon 10-23-2024 Anion gap [Moles/Vol] 13 mmol/L 10 - 2 0 mmol/L [facility] Calcium [Mass/Vol] 10.2 mg/dL 8.6 - 10. 6 mg/dL [facility] Chloride [Moles/Vol] 101 mmol/L 98 - 10 7 mmol/L [facility] CO2 [Moles/Vol] 27 mmol/L 21 - 32 mmol/L [facility] Creatinine [Mass/Vol] 1.37 mg/dL High 0.50 - 1.30 mg/dL [facility] GFR/1.73 sq M.predicted among non-blacks MDRD (S/P/Bld) [Vol rate/Area] 62 mL/min/{1.73_m2} - PINF [facility] Glucose [Mass/Vol] 98 mg/dL 74 - 99 mg/dL [facility] Interpretation and review of laboratory results Abnormal [facility] Potassium [Moles/Vol] 4.3 mmol/L 3.5 - 5.3 mmol/L [facility] Sodium [Moles/Vol] 137 mmol/L 136 - 145 mmol/L [facility] Urea nitrogen [Mass/Vol] 20 mg/dL 6 - 23 mg/d L [facility] CBC W Auto Differential pane l (Bld)on 10-23-2024 Basophils (Bld) [#/Vol] 0.08 10*3/uL [facility] Basophils/100 WBC (Bld) 0.6 % 0.0 - 2.0 % [facility] Eosinophils (Bld) [#/Vol] 0.23 10*3/uL [facility] Eosinophils/100 WBC (Bld) 1.7 % 0.0 - 6.0 % [facility] Erythrocyte distribution width (RBC) [Ratio] 18.6 % High 11.5 - 14.5 % [facility] Hematocrit (Bld) [Volume fraction] 26.4 % Low 41.0 - 52.0 % [facility] Hemoglobin (Bld) [Mass/Vol] 8.3 g/dL Low 13.5 - 17.5 g/dL [facility] Immature granulocytes (Bld) [#/Vol] 0.06 10*3/uL [facility] Immature granulocytes/100 WBC (Bld) 0.5 % 0.0 - 0.9 % [facility] Interpretation and review of laboratory results Abnormal [facility] Lymphocytes (Bld) [#/Vol] 1.57 10*3/uL [facility] Lymphocytes/100 WBC (Bld) 11.8 % 13.0 - 44.0 % [facility] MCH (RBC) [Entitic mass] 27.9 pg 26. 0 - 34.0 pg [facility] MCHC (RBC) [Mass/Vol] 31.4 g/dL Low 32.0 - 36.0 g/dL [facility] MCV (RBC) [Entitic vol] 89 fL 80 - 100 fL [facility] Monocytes (Bld) [#/Vol] 1.38 10*3/uL High [facility] Monocytes/100 WBC (Bld) 10.4 % 2.0 - 10.0 % [facility] Neutrophils (Bld) [#/Vol] 9.93 10*3/uL High [facility] Neutrophils/100 WBC (Bld) 75 % 40.0 - 80.0 % [facility] Nucleated RBC/100 WBC (Bld) [Ratio] 0 % [facility] Platelets (Bld) [#/Vol] 525 10*3/uL High [facility] RBC (Bld) [#/Vol] 2.98 10*6/uL [facility] (Bld[facility] [#/Vol] 13.3 10*3/uL [facility] Magnesiumon 10-23-2024 Magnesium [Mass/Vol] 2 mg/dL 1.60 - 2.40 mg/dL [facility] No Panel Informationon 10-23 Interpretation and review of laboratory results Normal [facility] Phosphoruson 10-23-2024 Phosphate [Mass/Vol] 3.7 mg/dL 2.5 - 4 .9 mg/dL [facility] Basic metabolic 2000 panelon 10-22-2024 Anion gap [Moles/Vol] 14 mmol/L 10 - 2 0 mmol/L [facility] Calcium [Mass/Vol] 10.3 mg/dL 8.6 - 10. 6 mg/dL [facility] Chloride [Moles/Vol] 100 mmol/L 98 - 10 7 mmol/L [facility] CO2 [Moles/Vol] 26 mmol/L 21 - 32 mmol/L [facility] Creatinine [Mass/Vol] 1.43 mg/dL High 0.50 - 1.30 mg/dL [facility] GFR/1.73 sq M.predicted among non-blacks MDRD (S/P/Bld) [Vol rate/Area] 59 mL/min/{1.73_m2} Low - PINF [facility] Glucose [Mass/Vol] 111 mg/dL High 74 - 99 mg/dL [facility] Interpretation and review of laboratory results Abnormal [facility] Potassium [Moles/Vol] 4.2 mmol/L 3.5 - 5.3 mmol/L [facility] Sodium [Moles/Vol] 136 mmol/L 136 - 145 mmol/L [facility] Urea nitrogen [Mass/Vol] 18 mg/dL 6 - 23 mg/d L [facility] CBC W Auto Differential pane l (Bld)on 10-22-2024 Basophils (Bld) [#/Vol] 0.06 10*3/uL [facility] Basophils/100 WBC (Bld) 0.4 % 0.0 - 2.0 % [facility] Eosinophils (Bld) [#/Vol] 0.33 10*3/uL [facility] Eosinophils/100 WBC (Bld) 2.4 % 0.0 - 6.0 % [facility] Erythrocyte distribution width (RBC) [Ratio] 18.5 % High 11.5 - 14.5 % [facility] Hematocrit (Bld) [Volume fraction] 26.8 % Low 41.0 - 52.0 % [facility] Hemoglobin (Bld) [Mass/Vol] 8.3 g/dL Low 13.5 - 17.5 g/dL [facility] Immature granulocytes (Bld) [#/Vol] 0.07 10*3/uL [facility] Immature granulocytes/100 WBC (Bld) 0.5 % 0.0 - 0.9 % [facility] Interpretation and review of laboratory results Abnormal [facility] Lymphocytes (Bld) [#/Vol] 1.75 10*3/uL [facility] Lymphocytes/100 WBC (Bld) 12.5 % 13.0 - 44.0 % [facility] MCH (RBC) [Entitic mass] 27.7 pg 26. 0 - 34.0 pg [facility] MCHC (RBC) [Mass/Vol] 31 g/dL Low 32.0 - 36.0 g/dL [facility] MCV (RBC) [Entitic vol] 89 fL 80 - 100 fL [facility] Monocytes (Bld) [#/Vol] 1.29 10*3/uL High [facility] Monocytes/100 WBC (Bld) 9.2 % 2.0 - 10.0 % [facility] Neutrophils (Bld) [#/Vol] 10.52 10*3/uL High [facility] Neutrophils/100 WBC (Bld) 75 % 40.0 - 80.0 % [facility] Nucleated RBC/100 WBC (Bld) [Ratio] 0 % [facility] Platelets (Bld) [#/Vol] 556 10*3/uL High [facility] RBC (Bld) [#/Vol] 3 10*6/uL Low [facility] WBC (Bld) [#/Vol] 14 10*3/uL High [facility] Magnesiumon 10-22-2024 Magnesium [Mass/Vol] 1.94 mg/dL 1.60 - 2.40 mg/dL [facility] No Panel Informationon 10-22 Interpretation and review of laboratory results Normal [facility] Phosphoruson 10-22-2024 Phosphate [Mass/Vol] 3.1 mg/dL 2.5 - 4 .9 mg/dL [facility] Basic metabolic 2000 panelon 10-21-2024 Anion gap [Moles/Vol] 14 mmol/L 10 - 2 0 mmol/L [facility] Calcium [Mass/Vol] 10 mg/dL 8.6 - 10. 6 mg/dL [facility] Chloride [Moles/Vol] 103 mmol/L 98 - 10 7 mmol/L [facility] CO2 [Moles/Vol] 26 mmol/L 21 - 32 mmol/L [facility] Creatinine [Mass/Vol] 1.55 mg/dL High 0.50 - 1.30 mg/dL [facility] GFR/1.73 sq M.predicted among non-blacks MDRD (S/P/Bld) [Vol rate/Area] 54 mL/min/{1.73_m2} Low - PINF [facility] Glucose [Mass/Vol] 98 mg/dL 74 - 99 mg/dL [facility] Interpretation and review of laboratory results Abnormal [facility] Potassium [Moles/Vol] 4.4 mmol/L 3.5 - 5.3 mmol/L [facility] Sodium [Moles/Vol] 139 mmol/L 136 - 145 mmol/L [facility] Urea nitrogen [Mass/Vol] 20 mg/dL 6 - 23 mg/d L [facility] CBC W Auto Differential pane l (Bld)on 10-21-2024 Erythrocyte distribution width (RBC) [Ratio] 18.5 % High 11.5 - 14.5 % [facility] Hematocrit (Bld) [Volume fraction] 26 % Low 41.0 - 52.0 % [facility] Hemoglobin (Bld) [Mass/Vol] 8 g/dL Low 13.5 - 17.5 g/dL [facility] Immature granulocytes (Bld) [#/Vol] 0.07 10*3/uL [facility] Immature granulocytes/100 WBC (Bld) 0.6 % 0.0 - 0.9 % [facility] MCH (RBC) [Entitic mass] 27.9 pg 26. 0 - 34.0 pg [facility] MCHC (RBC) [Mass/Vol] 30.8 g/dL Low 32.0 - 36.0 g/dL [facility] MCV (RBC) [Entitic vol] 91 fL 80 - 100 fL [facility] Nucleated RBC/100 WBC (Bld) [Ratio] 0 % [facility] Platelets (Bld) [#/Vol] 549 10*3/uL High [facility] RBC (Bld) [#/Vol] 2.87 10*6/uL Low [facility] WBC (Bld) [#/Vol] 12.4 10*3/uL [place] [facility] [place] isol Org specific cx Ql (Nose)Ordered By: Anabelle Guerrero on 10-21-2024 Interpretation and review of laboratory results Normal [facility] Staphylococcus sp identified Org specific cx Nom (Unsp spec) No Staphylococcus aureus isolated [facility] Magnesiumon 10-21-2024 Magnesium [Mass/Vol] 2.03 mg/dL 1.60 - 2.40 mg/dL [facility] Manual differential performe d Ql (Bld)on 10-21-2024 Basophils (Bld) [#/Vol] 0.21 10*3/uL [facility] Basophils/100 WBC (Bld) 1.7 % 0.0 - 2.0 % [facility] Cells Counted Total (Bld) [#] 117 {cells} [facility] Eosinophils (Bld) [#/Vol] 0.21 10*3/uL [facility] Eosinophils/100 WBC (Bld) 1.7 % 0.0 - 6.0 % [facility] Hypochromia Ql (Bld) Mild [facility] Lymphocytes (Bld) [#/Vol] 2.54 10*3/uL [facility] Lymphocytes/100 WBC (Bld) 20.5 % 13.0 - 44.0 % [facility] Monocytes (Bld) [#/Vol] 0.53 10*3/uL [facility] Monocytes/100 WBC (Bld) 4.3 % 2.0 - 10.0 % [facility] RBC morphology finding Nom (Bld) See Below [facility] Segmented neutrophils (Bld) [#/Vol] 8.79 10*3/uL [facility] Segmented neutrophils/100 WBC (Bld) 70.9 % 40.0 - 80.0 % [facility] Variant lymphocytes (Bld) [#/Vol] 0.11 10*3/uL [facility] Variant lymphocytes/100 WBC (Bld) 0.9 % 0.0 - 2.0 % [facility] No Panel Informationon 10-21 Interpretation and review of laboratory results Normal [facility] Interpretation and review of laboratory results Abnormal [facility] Phosphoruson 10-21-2024 Phosphate [Mass/Vol] 3.9 mg/dL 2.5 - 4 .9 mg/dL [facility] US.doppler Lower extremity v ein - bilateralon 10-21-2024 SYNGO [facility] Work Phone: Radiology Study observation (narrative) [facility] Work Phone: US.doppler Lower extremity v ein - bilateralOrdered By: Viki Colin on 10-21-2024 [facility] Work Phone: Vancomycinon 10-21-2024 Vancomycin [Mass/Vol] 4.4 ug/mL Low 5.0 - 20.0 ug/mL [facility] Vancomycin [Mass/Vol]on Interpretation and review of laboratory results Abnormal [facility] Bacteria identified Cx Nom ( Bld)Ordered By: Jennifer Saravia on 10-20-2024 Bacteria identified Aer cx Nom (Bld) Positive [facility] Interpretation and review of laboratory results Abnormal [facility] Microscopic observation Gram stain Nom (Unsp spec) Positive Critically abnormal [facility] Basic metabolic 2000 panelon 10-20-2024 Anion gap [Moles/Vol] 15 mmol/L 10 - 2 0 mmol/L [facility] Calcium [Mass/Vol] 10.4 mg/dL 8.6 - 10. 6 mg/dL [facility] Chloride [Moles/Vol] 104 mmol/L 98 - 10 7 mmol/L [facility] CO2 [Moles/Vol] 27 mmol/L 21 - 32 mmol/L [facility] Creatinine [Mass/Vol] 1.39 mg/dL High 0.50 - 1.30 mg/dL [facility] GFR/1.73 sq M.predicted among non-blacks MDRD (S/P/Bld) [Vol rate/Area] 61 mL/min/{1.73_m2} - PINF [facility] Glucose [Mass/Vol] 102 mg/dL High 74 - 99 mg[facility] Interpretation and review of laboratory results Abnormal [facility] Potassium [Moles/Vol] 4.5 mmol/L 3.5 - 5.3 mmol/L [facility] Sodium [Moles/Vol] 141 mmol/L 136 - 145 mmol/L [facility] Urea nitrogen [Mass/Vol] 17 mg/dL 6 - 23 mg/d L [facility] Bedside PICC Imagingon 10-20 IMAGING Blood CultureOrdered By: Rubina Saravia on 10-20-2024 Bacteria identified Cx Nom (Bld) Staphylococcus hominis Abnormal [facility] CBC W Auto Differential pane l (Bld)on 10-20-2024 Basophils (Bld) [#/Vol] 0.11 10*3/uL High [facility] Basophils/100 WBC (Bld) 0.7 % 0.0 - 2.0 % [facility] Eosinophils (Bld) [#/Vol] 0.35 10*3/uL [facility] Eosinophils/100 WBC (Bld) 2.1 % 0.0 - 6.0 % [facility] Erythrocyte distribution width (RBC) [Ratio] 18.1 % High 11.5 - 14.5 % [facility] Hematocrit (Bld) [Volume fraction] 27.2 % Low 41.0 - 52.0 % [facility] Hemoglobin (Bld) [Mass/Vol] 8.4 g/dL Low 13.5 - 17.5 g/dL [facility] Immature granulocytes (Bld) [#/Vol] 0.12 10*3/uL [facility] Immature granulocytes/100 WBC (Bld) 0.7 % 0.0 - 0.9 % [facility] Interpretation and review of laboratory results Abnormal [facility] Lymphocytes (Bld) [#/Vol] 1.68 10*3/uL [facility] Lymphocytes/100 WBC (Bld) 10.2 % 13.0 - 44.0 % [facility] MCH (RBC) [Entitic mass] 27.9 pg 26. 0 - 34.0 pg [facility] MCHC (RBC) [Mass/Vol] 30.9 g/dL Low 32.0 - 36.0 g/dL [facility] MCV (RBC) [Entitic vol] 90 fL 80 - 100 fL [facility] Monocytes (Bld) [#/Vol] 1.29 10*3/uL High [facility] Monocytes/100 WBC (Bld) 7.8 % 2.0 - 10.0 % [facility] Neutrophils (Bld) [#/Vol] 12.9 10*3/uL High [facility] Neutrophils/100 WBC (Bld) 78.5 % 40.0 - 80.0 % [facility] Nucleated RBC/100 WBC (Bld) [Ratio] 0 % [facility] Platelets (Bld) [#/Vol] 604 10*3/uL High [facility] RBC (Bld) [#/Vol] 3.01 10*6/uL [facility] W[facility] (Bld) [#/Vol] 16.5 10*3/uL [facility] Magnesiumon 10-20-2024 Magnesium [Mass/Vol] 2.13 mg/dL 1.60 - 2.40 mg/dL [facility] No Panel Informationon 10-20 Interpretation and review of laboratory results Normal [facility] Phosphoruson 10-20-2024 Phosphate [Mass/Vol] 3.2 mg/dL 2.5 - 4 .9 mg/dL [facility] Basic metabolic 2000 panelon 10-19-2024 Anion gap [Moles/Vol] 17 mmol/L 10 - 2 0 mmol/L [facility] Calcium [Mass/Vol] 10.2 mg/dL 8.6 - 10. 6 mg/dL [facility] Chloride [Moles/Vol] 102 mmol/L 98 - 10 7 mmol/L [facility] CO2 [Moles/Vol] 25 mmol/L 21 - 32 mmol/L [facility] Creatinine [Mass/Vol] 1.67 mg/dL High 0.50 - 1.30 mg/dL [facility] GFR/1.73 sq M.predicted among non-blacks MDRD (S/P/Bld) [Vol rate/Area] 49 mL/min/{1.73_m2} Low - PINF [facility] Glucose [Mass/Vol] 124 mg/dL High 74 - 99 mg/dL [facility] Interpretation and review of laboratory results Abnormal [facility] Potassium [Moles/Vol] 4 mmol/L 3.5 - 5.3 mmol/L [facility] Sodium [Moles/Vol] 140 mmol/L 136 - 145 mmol/L [facility] Urea nitrogen [Mass/Vol] 15 mg/dL 6 - 23 mg/d L [facility] CBC W Auto Differential pane l (Bld)on 10-19-2024 Basophils (Bld) [#/Vol] 0.1 10*3/uL [facility] Basophils/100 WBC (Bld) 0.7 % 0.0 - 2.0 % [facility] Eosinophils (Bld) [#/Vol] 0.41 10*3/uL [facility] Eosinophils/100 WBC (Bld) 2.8 % 0.0 - 6.0 % [facility] Erythrocyte distribution width (RBC) [Ratio] 17.8 % High 11.5 - 14.5 % [facility] Hematocrit (Bld) [Volume fraction] 25.9 % Low 41.0 - 52.0 % [facility] Hemoglobin (Bld) [Mass/Vol] 8 g/dL Low 13.5 - 17.5 g/dL [facility] Immature granulocytes (Bld) [#/Vol] 0.12 10*3/uL [facility] Immature granulocytes/100 WBC (Bld) 0.8 % 0.0 - 0.9 % [facility] Interpretation and review of laboratory results Abnormal [facility] Lymphocytes (Bld) [#/Vol] 2.16 10*3/uL [facility] Lymphocytes/100 WBC (Bld) 14.6 % 13.0 - 44.0 % [facility] MCH (RBC) [Entitic mass] 27.5 pg 26. 0 - 34.0 pg [facility] MCHC (RBC) [Mass/Vol] 30.9 g/dL Low 32.0 - 36.0 g/dL [facility] MCV (RBC) [Entitic vol] 89 fL 80 - 100 fL [facility] Monocytes (Bld) [#/Vol] 1.23 10*3/uL High [facility] Monocytes/100 WBC (Bld) 8.3 % 2.0 - 10.0 % [facility] Neutrophils (Bld) [#/Vol] 10.82 10*3/uL [facility] Neutrophils/100 WBC (Bld) 72.8 % 40.0 - 80.0 % [facility] Nucleated RBC/100 WBC (Bld) [Ratio] 0 % [facility] Platelets (Bld) [#/Vol] 609 10*3/uL High [facility] RBC (Bld) [#/Vol] 2.91 10*6/uL Low [facility] WBC (Bld) [#/Vol] 14.8 10*3/uL High [facility] Comprehensive metabolic 2000 panelon 10-19-2024 Albumin BCP dye [Mass/Vol] 3.4 g/dL 3.4 - 5.0 g/dL [facility] ALP [Catalytic activity/Vol] 76 U/L 33 - 120 U/L [facility] ALT With P-5'-P [Catalytic activity/Vol] 28 U/L 10 - 52 U/L [facility] Anion gap [Moles/Vol] 11 mmol/L 10 - 2 0 mmol/L [facility] AST With P-5'-P [Catalytic activity/Vol] 25 U/L 9 - 39 U/L [facility] Bilirubin [Mass/Vol] 0.2 mg/dL 0.0 - 1 .2 mg/dL [facility] Calcium [Mass/Vol] 10.2 mg/dL 8.6 - 10. 6 mg/dL [facility] Chloride [Moles/Vol] 103 mmol/L 98 - 10 7 mmol/L [facility] CO2 [Moles/Vol] 29 mmol/L 21 - 32 mmol/L [facility] Creatinine [Mass/Vol] 1.55 mg/dL High 0.50 - 1.30 mg/dL [facility] GFR/1.73 sq M.predicted among non-blacks MDRD (S/P/Bld) [Vol rate/Area] 54 mL/min/{1.73_m2} Low - PINF [facility] Glucose [Mass/Vol] 98 mg/dL 74 - 99 mg/dL [facility] Interpretation and review of laboratory results Abnormal [facility] Potassium [Moles/Vol] 4.3 mmol/L 3.5 - 5.3 mmol/L [facility] Protein [Mass/Vol] 7.2 g/dL 6.4 - 8.2 g/dL [facility] Sodium [Moles/Vol] 139 mmol/L 136 - 145 mmol/L [facility] Urea nitrogen [Mass/Vol] 16 mg/dL 6 - 23 mg/d L [facility] Magnesiumon 10-19-2024 Magnesium [Mass/Vol] 2.25 mg/dL 1.60 - 2.40 mg/dL [facility] Magnesium [Mass/Vol] 2.03 mg/dL 1.60 - 2.40 mg/dL [facility] Magnesium [Mass/Vol]on 10-19 Interpretation and review of laboratory results Normal [facility] No Panel Informationon 10-19 Interpretation and review of laboratory results Normal [facility] Phosphate [Mass/Vol]on 10-19 Interpretation and review of laboratory results Normal [facility] Phosphoruson 10-19-2024 Phosphate [Mass/Vol] 3.4 mg/dL 2.5 - 4 .9 mg/dL [facility] Phosphate [Mass/Vol] 3.8 mg/dL 2.5 - 4 .9 mg/dL [facility] Vancomycinon 10-19-2024 Vancomycin [Mass/Vol] 16.6 ug/mL 5.0 - 20.0 ug/mL [facility] Vancomycin [Mass/Vol]on Interpretation and review of laboratory results Normal [facility] Bacteria identified Cx Nom ( Bld)Ordered By: Mary Milton on 10-18-2024 Bacteria identified Aer cx Nom (Bld) Positive [facility] Interpretation and review of laboratory results Abnormal [facility] Microscopic observation Gram stain Nom (Unsp spec) Positive Critically abnormal [facility] Blood CultureOrdered By: Bia Milton on 10-18-2024 Bacteria identified Cx Nom (Bld) Marta oliveiramohindera Abnormal [facility] CBC W Auto Differential pane l (Bld)on 10-18-2024 Basophils (Bld) [#/Vol] 0.09 10*3/uL [facility] Basophils/100 WBC (Bld) 0.6 % 0.0 - 2.0 % [facility] Eosinophils (Bld) [#/Vol] 0.35 10*3/uL [facility] Eosinophils/100 WBC (Bld) 2.2 % 0.0 - 6.0 % [facility] Erythrocyte distribution width (RBC) [Ratio] 17.8 % High 11.5 - 14.5 % [facility] Hematocrit (Bld) [Volume fraction] 27.3 % Low 41.0 - 52.0 % [facility] Hemoglobin (Bld) [Mass/Vol] 8.4 g/dL Low 13.5 - 17.5 g/dL [facility] Immature granulocytes (Bld) [#/Vol] 0.17 10*3/uL [facility] Immature granulocytes/100 WBC (Bld) 1.1 % High 0.0 - 0.9 % [facility] Interpretation and review of laboratory results Abnormal [facility] Lymphocytes (Bld) [#/Vol] 2.56 10*3/uL [facility] Lymphocytes/100 WBC (Bld) 16.4 % 13.0 - 44.0 % [facility] MCH (RBC) [Entitic mass] 27.8 pg 26. 0 - 34.0 pg [facility] MCHC (RBC) [Mass/Vol] 30.8 g/dL Low 32.0 - 36.0 g/dL [facility] MCV (RBC) [Entitic vol] 90 fL 80 - 100 fL [facility] Monocytes (Bld) [#/Vol] 1.3 10*3/uL High [facility] Monocytes/100 WBC (Bld) 8.3 % 2.0 - 10.0 % [facility] Neutrophils (Bld) [#/Vol] 11.1 10*3/uL [facility] Neutrophils/100 WBC (Bld) 71.4 % 40.0 - 80.0 % [facility] Nucleated RBC/100 WBC (Bld) [Ratio] 0 % [facility] Platelets (Bld) [#/Vol] 605 10*3/uL High [facility] RBC (Bld) [#/Vol] 3.02 10*6/uL Low [facility] WBC (Bld) [#/Vol] 15.6 10*3/uL [facility] Comprehensive metabolic 2000 panelon 10-18-2024 Albumin BCP dye [Mass/Vol] 3.4 g/dL 3.4 - 5.0 g/dL [facility] ALP [Catalytic activity/Vol] 70 U/L 33 - 120 U/L [facility] ALT With P-5'-P [Catalytic activity/Vol] 17 U/L 10 - 52 U/L [facility] Anion gap [Moles/Vol] 15 mmol/L 10 - 2 0 mmol/L [facility] AST With P-5'-P [Catalytic activity/Vol] 18 U/L 9 - 39 U/L [facility] Bilirubin [Mass/Vol] 0.2 mg/dL 0.0 - 1 .2 mg/dL [facility] Calcium [Mass/Vol] 10.1 mg/dL 8.6 - 10. 6 mg/dL [facility] Chloride [Moles/Vol] 101 mmol/L 98 - 10 7 mmol/L [facility] CO2 [Moles/Vol] 27 mmol/L 21 - 32 mmol/L [facility] Creatinine [Mass/Vol] 1.72 mg/dL High 0.50 - 1.30 mg/dL [facility] GFR/1.73 sq M.predicted among non-blacks MDRD (S/P/Bld) [Vol rate/Area] 48 mL/min/{1.73_m2} Low - PINF [facility] Glucose [Mass/Vol] 97 mg/dL 74 - 99 mg/[facility] Interpretation and review of laboratory results Abnormal [facility] Potassium [Moles/Vol] 4 mmol/L 3.5 - 5.3 mmol/L [facility] Protein [Mass/Vol] 7.1 g/dL 6.4 - 8.2 g/dL [facility] Sodium [Moles/Vol] 139 mmol/L 136 - 145 mmol/L [facility] Urea nitrogen [Mass/Vol] 17 mg/dL 6 - 23 mg/d L [facility] Magnesiumon 10-18-2024 Magnesium [Mass/Vol] 2.13 mg/dL 1.60 - 2.40 mg/dL [facility] No Panel Informationon 10-18 [facility] Interpretation and review of laboratory results Normal [facility] Phosphoruson 10-18-2024 Phosphate [Mass/Vol] 3.2 mg/dL 2.5 - 4 .9 mg/dL [facility] Bacteria identified Cx Nom ( Bld)on 10-17-2024 Interpretation and review of laboratory results Normal [facility] Bacteria identified Cx Nom ( Unsp spec)Ordered By: Mari Monique on 10-17-2024 Beta lactamase organism identified Nom (Isol) Positive [facility] Microscopic observation Gram stain Nom (Unsp spec) No polymorphonuclear leukocytes seen [facility] Microscopic observation Gram stain Nom (Unsp spec) No organisms seen [facility] CBC W Auto Differential pane l (Bld)on 10-17-2024 Basophils (Bld) [#/Vol] 0.09 10*3/uL [facility] Basophils/100 WBC (Bld) 0.5 % 0.0 - 2.0 % [facility] Eosinophils (Bld) [#/Vol] 0.27 10*3/uL [facility] Eosinophils/100 WBC (Bld) 1.6 % 0.0 - 6.0 % [facility] Erythrocyte distribution width (RBC) [Ratio] 16.9 % High 11.5 - 14.5 % [facility] Hematocrit (Bld) [Volume fraction] 25.1 % Low 41.0 - 52.0 % [facility] Hemoglobin (Bld) [Mass/Vol] 8.5 g/dL Low 13.5 - 17.5 g/dL [facility] Immature granulocytes (Bld) [#/Vol] 0.13 10*3/uL [facility] Immature granulocytes/100 WBC (Bld) 0.8 % 0.0 - 0.9 % [facility] Interpretation and review of laboratory results Abnormal [facility] Lymphocytes (Bld) [#/Vol] 2.37 10*3/uL [facility] Lymphocytes/100 WBC (Bld) 14.2 % 13.0 - 44.0 % [facility] MCH (RBC) [Entitic mass] 28.1 pg 26. 0 - 34.0 pg [facility] MCHC (RBC) [Mass/Vol] 33.9 g/dL 32.0 - 36.0 g/dL [facility] MCV (RBC) [Entitic vol] 83 fL 80 - 100 fL [facility] Monocytes (Bld) [#/Vol] 1.31 10*3/uL High [facility] Monocytes/100 WBC (Bld) 7.8 % 2.0 - 10.0 % [facility] Neutrophils (Bld) [#/Vol] 12.54 10*3/uL [facility] Neutrophils/100 WBC (Bld) 75.1 % 40.0 - 80.0 % [facility] Nucleated RBC/100 WBC (Bld) [Ratio] 0 % [facility] Platelets (Bld) [#/Vol] 590 10*3/uL High [facility] RBC (Bld) [#/Vol] 3.02 10*6/uL Low [facility] WBC (Bld) [#/Vol] 16.7 10*3/uL [facility] Comprehensive metabolic 2000 panelon 10-17-2024 Albumin BCP dye [Mass/Vol] 3.4 g/dL 3.4 - 5.0 g/dL [facility] ALP [Catalytic activity/Vol] 62 U/L 33 - 120 U/L [facility] ALT With P-5'-P [Catalytic activity/Vol] 11 U/L 10 - 52 U/L [facility] Anion gap [Moles/Vol] 16 mmol/L 10 - 2 0 mmol/L [facility] AST With P-5'-P [Catalytic activity/Vol] 35 U/L 9 - 39 U/L [facility] Bilirubin [Mass/Vol] 0.3 mg/dL 0.0 - 1 .2 mg/dL [facility] Calcium [Mass/Vol] 10.2 mg/dL 8.6 - 10. 6 mg/dL [facility] Chloride [Moles/Vol] 103 mmol/L 98 - 10 7 mmol/L [facility] CO2 [Moles/Vol] 25 mmol/L 21 - 32 mmol/L [facility] Creatinine [Mass/Vol] 1.62 mg/dL High 0.50 - 1.30 mg/dL [facility] GFR/1.73 sq M.predicted among non-blacks MDRD (S/P/Bld) [Vol rate/Area] 51 mL/min/{1.73_m2} Low - PINF [facility] Glucose [Mass/Vol] 91 mg/dL 74 - 99 mg/dL [facility] Potassium [Moles/Vol] 5.6 mmol/L High 3.5 - 5.3 mmol/L [facility] Protein [Mass/Vol] 7.3 g/dL 6.4 - 8.2 g/dL [facility] Sodium [Moles/Vol] 138 mmol/L 136 - 145 mmol/L [facility] Urea nitrogen [Mass/Vol] 14 mg/dL 6 - 23 mg/d L [facility] Laboratory - Microbiology an d Antimicrobial susceptibilityon 10-17-2024 Bacteria identified Cx Nom (Bld) No growth at 4 days - FINAL REPORT [facility] Magnesiumon 10-17-2024 Magnesium [Mass/Vol] 2.25 mg/dL 1.60 - 2.40 mg/dL [facility] Magnesium [Mass/Vol] 2.52 mg/dL High 1.60 - 2.40 mg/dL [facility] Magnesium [Mass/Vol]on 10-17 Interpretation and review of laboratory results Normal [facility] No Panel Informationon 10-17 [facility] Interpretation and review of laboratory results Normal [facility] Interpretation and review of laboratory results Abnormal [facility] Phosphoruson 10-17-2024 Phosphate [Mass/Vol] 4.1 mg/dL 2.5 - 4 .9 mg/dL [facility] Renal function 2000 panelon 10-17-2024 Albumin BCP dye [Mass/Vol] 3.7 g/dL 3.4 - 5.0 g/dL [facility] Anion gap [Moles/Vol] 14 mmol/L 10 - 2 0 mmol/L [facility] Calcium [Mass/Vol] 10.4 mg/dL 8.6 - 10. 6 mg/dL [facility] Chloride [Moles/Vol] 99 mmol/L 98 - 10 7 mmol/L [facility] CO2 [Moles/Vol] 27 mmol/L 21 - 32 mmol/L [facility] Creatinine [Mass/Vol] 1.62 mg/dL High 0.50 - 1.30 mg/dL [facility] GFR/1.73 sq M.predicted among non-blacks MDRD (S/P/Bld) [Vol rate/Area] 51 mL/min/{1.73_m2} Low - PINF [facility] Glucose [Mass/Vol] 98 mg/dL 74 - 99 mg/dL [facility] Interpretation and review of laboratory results Abnormal [facility] Phosphate [Mass/Vol] 3.7 mg/dL 2.5 - 4 .9 mg/dL [facility] Potassium [Moles/Vol] 4.3 mmol/L 3.5 - 5.3 mmol/L [facility] Sodium [Moles/Vol] 136 mmol/L 136 - 145 mmol/L [facility] Urea nitrogen [Mass/Vol] 17 mg/dL 6 - 23 mg/d L [facility] Tissue/Wound Culture/SmearOr dered By: Mari Monique on 10-17-2024 Bacteria identified Cx Nom (Unsp spec) (1+) Rare Mixed Anaerobic Bacteria [facility] Bacteria identified Cx Nom (Unsp spec) Negative [facility] Vancomycinon 10-17-2024 Vancomycin [Mass/Vol] 16.8 ug/mL 5.0 - 20.0 ug/mL [facility] Vancomycin [Mass/Vol]on 09-20 [facility] Blood type and Indirect anti body screen panel (Bld)on 10-16-2024 ABO group Nom (Bld) A [facility] antibody screen Ql Negative [facility] D Ag Ql (Bld) Positive [facility] CBC W Auto Differential pane l (Bld)on 10-16-2024 Basophils (Bld) [#/Vol] 0.1 10*3/uL [facility] Basophils/100 WBC (Bld) 0.7 % 0.0 - 2.0 % [facility] Eosinophils (Bld) [#/Vol] 0.41 10*3/uL [facility] Eosinophils/100 WBC (Bld) 2.8 % 0.0 - 6.0 % [facility] Erythrocyte distribution width (RBC) [Ratio] 16.9 % High 11.5 - 14.5 % [facility] Hematocrit (Bld) [Volume fraction] 27.8 % Low 41.0 - 52.0 % [facility] Hemoglobin (Bld) [Mass/Vol] 8.9 g/dL Low 13.5 - 17.5 g/dL [facility] Immature granulocytes (Bld) [#/Vol] 0.17 10*3/uL [facility] Immature granulocytes/100 WBC (Bld) 1.2 % High 0.0 - 0.9 % [facility] Interpretation and review of laboratory results Abnormal [facility] Lymphocytes (Bld) [#/Vol] 2.54 10*3/uL [facility] Lymphocytes/100 WBC (Bld) 17.6 % 13.0 - 44.0 % [facility] MCH (RBC) [Entitic mass] 27.8 pg 26. 0 - 34.0 pg [facility] MCHC (RBC) [Mass/Vol] 32 g/dL 32.0 - 36.0 g/dL [facility] MCV (RBC) [Entitic vol] 87 fL 80 - 100 fL [facility] Monocytes (Bld) [#/Vol] 1.08 10*3/uL High [facility] Monocytes/100 WBC (Bld) 7.5 % 2.0 - 10.0 % [facility] Neutrophils (Bld) [#/Vol] 10.11 10*3/uL [facility] Neutrophils/100 WBC (Bld) 70.2 % 40.0 - 80.0 % [facility] Nucleated RBC/100 WBC (Bld) [Ratio] 0 % [facility] Platelets (Bld) [#/Vol] 633 10*3/uL High [facility] RBC (Bld) [#/Vol] 3.2 10*6/uL Low [facility] WBC (Bld) [#/Vol] 14.4 10*3/uL [facility] Comprehensive metabolic 2000 panelon 10-16-2024 Albumin BCP dye [Mass/Vol] 3.4 g/dL 3.4 - 5.0 g/dL [facility] ALP [Catalytic activity/Vol] 60 U/L 33 - 120 U/L [facility] ALT With P-5'-P [Catalytic activity/Vol] 10 U/L 10 - 52 U/L [facility] Anion gap [Moles/Vol] 13 mmol/L 10 - 2 0 mmol/L [facility] AST With P-5'-P [Catalytic activity/Vol] 11 U/L 9 - 39 U/L [facility] Bilirubin [Mass/Vol] 0.2 mg/dL 0.0 - 1 .2 mg/dL [facility] Calcium [Mass/Vol] 10 mg/dL 8.6 - 10. 6 mg/dL [facility] Chloride [Moles/Vol] 103 mmol/L 98 - 10 7 mmol/L [facility] CO2 [Moles/Vol] 26 mmol/L 21 - 32 mmol/L [facility] Creatinine [Mass/Vol] 1.5 mg/dL High 0.50 - 1.30 mg/dL [facility] GFR/1.73 sq M.predicted among non-blacks MDRD (S/P/Bld) [Vol rate/Area] 56 mL/min/{1.73_m2} Low - PINF [facility] Glucose [Mass/Vol] 104 mg/dL High 74 - 99 mg/dL Uni [facility] Interpretation and review of laboratory results Abnormal [facility] Potassium [Moles/Vol] 4.3 mmol/L 3.5 - 5.3 mmol/L [facility] Protein [Mass/Vol] 7.2 g/dL 6.4 - 8.2 g/dL [facility] Sodium [Moles/Vol] 138 mmol/L 136 - 145 mmol/L [facility] Urea nitrogen [Mass/Vol] 12 mg/dL 6 - 23 mg/d L [facility] Electrocardiogram, 12-lead P RN ACS symptomsOrdered By: Campos Villa on 10-16-2024 Atrial Rate 126 BPM [facility] Work Phone: [phone] P [place] 72 degrees [facility] Work Phone: [phone] P Offset 218 ms [facility] Work Phone: [phone] P Onset 153 ms [facility] Work Phone: [phone] KS Interval 144 ms [facility] Work Phone: [phone] Q Onset 225 ms [facility] Work Phone: [phone] QRS Count 21 beats [facility] Work Phone: [phone] QRS Duration 94 ms [facility] Work Phone: [phone] QT Interval 324 ms [facility] Work Phone: [phone] QTC Calculation(Bazett) 469 ms U [facility] Work Phone: [phone] QTC Fredericia 415 ms [facility] Work Phone: [phone] R [place] 49 degrees [facility] Work Phone: [phone] T [place] 101 degrees [facility] Work Phone: [phone] T Offset 387 ms [facility] Work Phone: [phone] Ventricular Rate 126 BPM [facility] Work Phone: [facility] Work Phone: Electrocardiogram, 12-lead P RN ACS symptomson 10-16-2024 [facility] Work Phone: Magnesiumon 10-16-2024 Magnesium [Mass/Vol] 2.16 mg/dL 1.60 - 2.40 mg/dL [facility] No Panel Informationon 10-16 Interpretation and review of laboratory results Normal [facility] PT and aPTT panel Coag (PPP) on 10-16-2024 aPTT Coag (PPP) [Time] 30 s [facility] INR Coag (PPP) [Relative time] 1 {INR} 0.9 - 1.1 [facility] Interpretation and review of laboratory results Normal [facility] PT Coag (PPP) [Time] 11.4 s [facility] Phosphoruson 10-16-2024 Phosphate [Mass/Vol] 3.2 mg/dL 2.5 - 4 .9 mg/dL [facility] CBC W Auto Differential pane l (Bld)on 10-15-2024 Basophils (Bld) [#/Vol] 0.1 10*3/uL [facility] Basophils/100 WBC (Bld) 0.8 % 0.0 - 2.0 % [facility] Eosinophils (Bld) [#/Vol] 0.4 10*3/uL [facility] Eosinophils/100 WBC (Bld) 3.1 % 0.0 - 6.0 % [facility] Erythrocyte distribution width (RBC) [Ratio] 17.1 % High 11.5 - 14.5 % [facility] Hematocrit (Bld) [Volume fraction] 29.1 % Low 41.0 - 52.0 % [facility] Hemoglobin (Bld) [Mass/Vol] 9.2 g/dL Low 13.5 - 17.5 g/dL [facility] Immature granulocytes (Bld) [#/Vol] 0.09 10*3/uL [facility] Immature granulocytes/100 WBC (Bld) 0.7 % 0.0 - 0.9 % [facility] Interpretation and review of laboratory results Abnormal [facility] Lymphocytes (Bld) [#/Vol] 2.77 10*3/uL [facility] Lymphocytes/100 WBC (Bld) 21.4 % 13.0 - 44.0 % [facility] MCH (RBC) [Entitic mass] 28.4 pg 26. 0 - 34.0 pg [facility] MCHC (RBC) [Mass/Vol] 31.6 g/dL Low 32.0 - 36.0 g/dL [facility] MCV (RBC) [Entitic vol] 90 fL 80 - 100 fL [facility] Monocytes (Bld) [#/Vol] 0.98 10*3/uL [facility] Monocytes/100 WBC (Bld) 7.6 % 2.0 - 10.0 % [facility] Neutrophils (Bld) [#/Vol] 8.58 10*3/uL High [facility] Neutrophils/100 WBC (Bld) 66.4 % 40.0 - 80.0 % [facility] Nucleated RBC/100 WBC (Bld) [Ratio] 0 % [facility] Platelets (Bld) [#/Vol] 635 10*3/uL High [facility] RBC (Bld) [#/Vol] 3.24 10*6/uL Low [facility] WBC (Bld) [#/Vol] 12.9 10*3/uL [facility] Comprehensive metabolic 2000 panelon 10-15-2024 Albumin BCP dye [Mass/Vol] 3.3 g/dL Low 3.4 - 5.0 g/dL [facility] ALP [Catalytic activity/Vol] 60 U/L 33 - 120 U/L [facility] ALT With P-5'-P [Catalytic activity/Vol] 9 U/L Low 10 - 52 U/L [facility] Anion gap [Moles/Vol] 13 mmol/L 10 - 2 0 mmol/L [facility] AST With P-5'-P [Catalytic activity/Vol] 9 U/L 9 - 39 U/L [facility] Bilirubin [Mass/Vol] 0.2 mg/dL 0.0 - 1 .2 mg/dL [facility] Calcium [Mass/Vol] 9.5 mg/dL 8.6 - 10. 6 mg/dL [facility] Chloride [Moles/Vol] 102 mmol/L 98 - 10 7 mmol/L [facility] CO2 [Moles/Vol] 27 mmol/L 21 - 32 mmol/L [facility] Creatinine [Mass/Vol] 1.53 mg/dL High 0.50 - 1.30 mg/dL [facility] GFR/1.73 sq M.predicted among non-blacks MDRD (S/P/Bld) [Vol rate/Area] 55 mL/min/{1.73_m2} Low - PINF [facility] Glucose [Mass/Vol] 94 mg/dL 74 - 99 mg/dL [facility] Interpretation and review of laboratory results Abnormal [facility] Potassium [Moles/Vol] 4 mmol/L 3.5 - 5.3 mmol/L [facility] Protein [Mass/Vol] 6.9 g/dL 6.4 - 8.2 g/dL [facility] Sodium [Moles/Vol] 138 mmol/L 136 - 145 mmol/L [facility] Urea nitrogen [Mass/Vol] 10 mg/dL 6 - 23 mg/d L [facility] Magnesiumon 10-15-2024 Magnesium [Mass/Vol] 2.11 mg/dL 1.60 - 2.40 mg/dL [facility] No Panel Informationon 10-15 Interpretation and review of laboratory results Normal [facility] Phosphoruson 10-15-2024 Phosphate [Mass/Vol] 2.5 mg/dL 2.5 - 4 .9 mg/dL [facility] CBC W Auto Differential pane l (Bld)on 10-14-2024 Basophils (Bld) [#/Vol] 0.08 10*3/uL [facility] Basophils/100 WBC (Bld) 0.5 % 0.0 - 2.0 % [facility] Eosinophils (Bld) [#/Vol] 0.3 10*3/uL [facility] Eosinophils/100 WBC (Bld) 2 % 0.0 - 6.0 % [facility] Erythrocyte distribution width (RBC) [Ratio] 17.2 % High 11.5 - 14.5 % [facility] Hematocrit (Bld) [Volume fraction] 26.6 % Low 41.0 - 52.0 % [facility] Hemoglobin (Bld) [Mass/Vol] 8.1 g/dL Low 13.5 - 17.5 g/dL [facility] Immature granulocytes (Bld) [#/Vol] 0.13 10*3/uL [facility] Immature granulocytes/100 WBC (Bld) 0.9 % 0.0 - 0.9 % [facility] Interpretation and review of laboratory results Abnormal [facility] Lymphocytes (Bld) [#/Vol] 1.96 10*3/uL [facility] Lymphocytes/100 WBC (Bld) 13.1 % 13.0 - 44.0 % [facility] MCH (RBC) [Entitic mass] 27.6 pg 26. 0 - 34.0 pg [facility] MCHC (RBC) [Mass/Vol] 30.5 g/dL Low 32.0 - 36.0 g/dL [facility] MCV (RBC) [Entitic vol] 91 fL 80 - 100 fL [facility] Monocytes (Bld) [#/Vol] 0.84 10*3/uL [facility] Monocytes/100 WBC (Bld) 5.6 % 2.0 - 10.0 % [facility] Neutrophils (Bld) [#/Vol] 11.69 10*3/uL High [facility] Neutrophils/100 WBC (Bld) 77.9 % 40.0 - 80.0 % [facility] Nucleated RBC/100 WBC (Bld) [Ratio] 0 % [facility] Platelets (Bld) [#/Vol] 561 10*3/uL High [facility] RBC (Bld) [#/Vol] 2.94 10*6/uL Low [facility] WBC (Bld) [#/Vol] 15 10*3/uL [facility] Comprehensive metabolic 2000 panelon 10-14-2024 Albumin BCP dye [Mass/Vol] 3.1 g/dL Low 3.4 - 5.0 g/dL [facility] ALP [Catalytic activity/Vol] 60 U/L 33 - 120 U/L [facility] ALT With P-5'-P [Catalytic activity/Vol] 9 U/L Low 10 - 52 U/L [facility] Anion gap [Moles/Vol] 13 mmol/L 10 - 2 0 mmol/L [facility] AST With P-5'-P [Catalytic activity/Vol] 6 U/L Low 9 - 39 U/L [facility] Bilirubin [Mass/Vol] 0.2 mg/dL 0.0 - 1 .2 mg/dL [facility] Calcium [Mass/Vol] 9 mg/dL 8.6 - 10. 6 mg/dL [facility] Chloride [Moles/Vol] 102 mmol/L 98 - 10 7 mmol/L [facility] CO2 [Moles/Vol] 26 mmol/L 21 - 32 mmol/L [facility] Creatinine [Mass/Vol] 1.44 mg/dL High 0.50 - 1.30 mg/dL [facility] GFR/1.73 sq M.predicted among non-blacks MDRD (S/P/Bld) [Vol rate/Area] 59 mL/min/{1.73_m2} Low - PINF [facility] Glucose [Mass/Vol] 163 mg/dL High 74 - 99 mg/dL Uni [facility] Interpretation and review of laboratory results Abnormal [facility] Potassium [Moles/Vol] 3.9 mmol/L 3.5 - 5.3 mmol/L [facility] Protein [Mass/Vol] 6.4 g/dL 6.4 - 8.2 g/dL [facility] Sodium [Moles/Vol] 137 mmol/L 136 - 145 mmol/L [facility] Urea nitrogen [Mass/Vol] 15 mg/dL 6 - 23 mg/d L [facility] Extra Urine [facility] Tubeon 09-19 Extra Tube Hold for add-ons. [facility] Lactateon 10-14-2024 Lactate [Moles/Vol] 1.2 mmol/L 0.4 - 2. 0 mmol/L [facility] Lactate [Moles/Vol] 2.3 mmol/L High 0.4 - 2. 0 mmol/L [facility] Lactate [Moles/Vol]on 2024 Interpretation and review of laboratory results Normal [facility] Interpretation and review of laboratory results Abnormal [facility] No Panel Informationon 10-14 [facility] Vancomycinon 10-14-2024 Vancomycin [Mass/Vol] 14.7 ug/mL 5.0 - 20.0 ug/mL [facility] Vancomycin [Mass/Vol]on 09-19 Interpretation and review of laboratory results Normal [facility] Bacteria identified Cx Nom ( Unsp spec)Ordered By: Alejandra Andrade on 10-13-2024 Beta lactamase organism identified Nom (Isol) Positive [facility] Interpretation and review of laboratory results Abnormal [facility] Microscopic observation Gram stain Nom (Unsp spec) No polymorphonuclear leukocytes seen Abnormal [facility] Microscopic observation Gram stain Nom (Unsp spec) Positive Abnormal [facility] CBC W Auto Differential pane l (Bld)on 10-13-2024 Basophils (Bld) [#/Vol] 0.06 10*3/uL [facility] Basophils/100 WBC (Bld) 0.2 % 0.0 - 2.0 % [facility] Eosinophils (Bld) [#/Vol] 0.18 10*3/uL [facility] Eosinophils/100 WBC (Bld) 0.7 % 0.0 - 6.0 % [facility] Erythrocyte distribution width (RBC) [Ratio] 16.9 % High 11.5 - 14.5 % [facility] Hematocrit (Bld) [Volume fraction] 25.6 % Low 41.0 - 52.0 % [facility] Hemoglobin (Bld) [Mass/Vol] 8.3 g/dL Low 13.5 - 17.5 g/dL [facility] Immature granulocytes (Bld) [#/Vol] 0.15 10*3/uL [facility] Immature granulocytes/100 WBC (Bld) 0.6 % 0.0 - 0.9 % [facility] Interpretation and review of laboratory results Abnormal [facility] Lymphocytes (Bld) [#/Vol] 2.13 10*3/uL [facility] Lymphocytes/100 WBC (Bld) 8.9 % 13.0 - 44.0 % [facility] MCH (RBC) [Entitic mass] 28.4 pg 26. 0 - 34.0 pg [facility] MCHC (RBC) [Mass/Vol] 32.4 g/dL 32.0 - 36.0 g/dL [facility] MCV (RBC) [Entitic vol] 88 fL 80 - 100 fL [facility] Monocytes (Bld) [#/Vol] 1.37 10*3/uL High [facility] Monocytes/100 WBC (Bld) 5.7 % 2.0 - 10.0 % [facility] Neutrophils (Bld) [#/Vol] 20.15 10*3/uL High [facility] Neutrophils/100 WBC (Bld) 83.9 % 40.0 - 80.0 % [facility] Nucleated RBC/100 WBC (Bld) [Ratio] 0 % [facility] Platelets (Bld) [#/Vol] 579 10*3/uL High [facility] RBC (Bld) [#/Vol] 2.92 10*6/uL Low [facility] WBC (Bld) [#/Vol] 24 10*3/uL High [facility] Erythrocyte distribution width (RBC) [Ratio] 17 % High 11.5 - 14.5 % [facility] Hematocrit (Bld) [Volume fraction] 34.1 % Low 41.0 - 52.0 % [facility] Hemoglobin (Bld) [Mass/Vol] 10.5 g/dL Low 13.5 - 17.5 g/dL [facility] Immature granulocytes (Bld) [#/Vol] 0.32 10*3/uL [facility] Immature granulocytes/100 WBC (Bld) 1.1 % High 0.0 - 0.9 % [facility] MCH (RBC) [Entitic mass] 27.9 pg 26. 0 - 34.0 pg [facility] MCHC (RBC) [Mass/Vol] 30.8 g/dL Low 32.0 - 36.0 g/dL [facility] MCV (RBC) [Entitic vol] 91 fL 80 - 100 fL [facility] Nucleated RBC/100 WBC (Bld) [Ratio] 0 % [facility] Platelets (Bld) [#/Vol] 755 10*3/uL High [facility] RBC (Bld) [#/Vol] 3.76 10*6/uL Low [facility] WBC (Bld) [#/Vol] 30.1 10*3/uL High [facility] Comprehensive metabolic 2000 panelon 10-13-2024 Albumin BCP dye [Mass/Vol] 3.9 g/dL 3.4 - 5.0 g/dL [facility] ALP [Catalytic activity/Vol] 76 U/L 33 - 120 U/L [facility] ALT With P-5'-P [Catalytic activity/Vol] 9 U/L Low 10 - 52 U/L [facility] Anion gap [Moles/Vol] 18 mmol/L 10 - 2 0 mmol/L [facility] AST With P-5'-P [Catalytic activity/Vol] 10 U/L 9 - 39 U/L [facility] Bilirubin [Mass/Vol] 0.4 mg/dL 0.0 - 1 .2 mg/dL [facility] Calcium [Mass/Vol] 10.4 mg/dL 8.6 - 10. 6 mg/dL [facility] Chloride [Moles/Vol] 100 mmol/L 98 - 10 7 mmol/L [facility] CO2 [Moles/Vol] 26 mmol/L 21 - 32 mmol/L [facility] Creatinine [Mass/Vol] 1.84 mg/dL High 0.50 - 1.30 mg/dL [facility] GFR/1.73 sq M.predicted among non-blacks MDRD (S/P/Bld) [Vol rate/Area] 44 mL/min/{1.73_m2} Low - PINF [facility] Glucose [Mass/Vol] 144 mg/dL High 74 - 99 mg/dL [facility] Interpretation and review of laboratory results Abnormal [facility] Potassium [Moles/Vol] 4.5 mmol/L 3.5 - 5.3 mmol/L [facility] Protein [Mass/Vol] 7.5 g/dL 6.4 - 8.2 g/dL [facility] Sodium [Moles/Vol] 139 mmol/L 136 - 145 mmol/L [facility] Urea nitrogen [Mass/Vol] 19 mg/dL 6 - 23 mg/d L [facility] ECG 12-LEADon 10-13-2024 ECG 12-LEAD Ventricular Rate 126 Atrial Rate 126 P-R Interval 144 QRS Duration 94 Q-T Interval 324 QTC Calculation(Bazett) 469 P [place] 72 R [place] 49 T [place] 101 QRS Count 21 Q Onset 225 P Onset 153 P Offset 218 T Offset 387 QTC [place] [address] & T wave abnormality, consider lateral ischemia Abnormal ECG Confirmed by Campos Villa ([id number]) on 10/16/2024 6:09:33 PM Normal [facility] Gas and Carbon monoxide and Electrolytes panel (BldA)on 10-13-2024 Anion gap 4 (BldA) [Moles/Vol] 11 [facility] Base excess Calc (Bld) [Moles/Vol] -1 mmol/L -2.0 - 3.0 mmol/L [facility] Calcium.ionized (BldA) [Moles/Vol] 1.3 mmol/L 1.10 - 1.33 mmol/L [facility] Chloride (BldA) [Moles/Vol] 104 mmol/L 98 - 107 mmol/L [facility] CO2 (Bld) [Partial pressure] 42 mm[Hg] [facility] Glucose [Mass/Vol] 152 mg/dL High 74 - 99 mg/dL [facility] HCO3 (Bld) [Moles/Vol] 24.3 mmol/L 22.0 - 26.0 mmol/L [facility] Hematocrit Est (Bld) [Volume fraction] 29 % Low 41.0 - 52.0 % [facility] Hemoglobin (Bld) [Mass/Vol] 9.5 g/dL Low 13.5 - 17.5 g/dL [facility] Inhaled oxygen concentration 28 % [facility] Interpretation and review of laboratory results Abnormal [facility] Lactate (BldA) [Moles/Vol] 0.9 mmol/L 0.4 - 2.0 mmol/L [facility] Oxygen (Bld) [Partial pressure] 73 mm[Hg] Low [facility] Oxyhemoglobin (BldA) [Mass fraction] 94.4 % 94.0 - 98.0 % [facility] pH (Bld) 7.37 [pH] Low 7.38 - 7.42 pH [facility] Potassium (BldA) [Moles/Vol] 4.1 mmol/L 3.5 - 5.3 mmol/L [facility] Sodium (BldA) [Moles/Vol] 135 mmol/L Low 136 - 145 mmol/L [facility] Gas panel (BldV)on Anion gap 4 (BldV) [Moles/Vol] 10 mmol/L 10.0 - 25.0 mmol/L [facility] Base excess Calc (BldV) [Moles/Vol] -0.4000 mmol/L -2.0 - 3.0 mmol/L [facility] Calcium.ionized (BldV) [Moles/Vol] 1.31 mmol/L 1.10 - 1.33 mmol/L [facility] Chloride (BldV) [Moles/Vol] 104 mmol/L 98 - 107 mmol/L [facility] CO2 (BldV) [Partial pressure] 51 mm[Hg] [facility] Glucose [Mass/Vol] 154 mg/dL High 74 - 99 mg/dL [facility] HCO3 (Bld) [Moles/Vol] 26.3 mmol/L High 22.0 - 26.0 mmol/L [facility] Hematocrit Est (Bld) [Volume fraction] 36 % Low 41.0 - 52.0 % [facility] Hemoglobin (Bld) [Mass/Vol] 12 g/dL Low 13.5 - 17.5 g/dL [facility] Inhaled oxygen concentration 28 % [facility] Interpretation and review of laboratory results Abnormal [facility] Lactate (BldV) [Moles/Vol] 2.2 mmol/L High 0.4 - 2.0 mmol/L [facility] Oxygen (BldV) [Partial pressure] 36 mm[Hg] [facility] Oxygen saturation in Venous blood 53 % 45 - 75 % [facility] Oxyhemoglobin (BldV) [Mass fraction] 52.4 % 45.0 - 75.0 % [facility] pH (BldV) 7.32 [pH] Low 7.33 - 7.43 pH [facility] Potassium (BldV) [Moles/Vol] 4.3 mmol/L 3.5 - 5.3 mmol/L [facility] Sodium (BldV) [Moles/Vol] 136 mmol/L 136 - 145 mmol/L [facility] Lactateon 10-13-2024 Lactate [Moles/Vol] 2.6 mmol/L High 0.4 - 2. 0 mmol/L [facility] Lactate [Moles/Vol] 1.8 mmol/L 0.4 - 2. 0 mmol/L [facility] Lactate [Moles/Vol]on 2024 Interpretation and review of laboratory results Abnormal [facility] Interpretation and review of laboratory results Normal [facility] Manual differential performe d Ql (Bld)on 10-13-2024 Band form neutrophils (Bld) [#/Vol] 4.67 10*3/uL High [facility] Band form neutrophils/100 WBC (Bld) 15.5 % 0.0 - 5.0 % [facility] Basophils (Bld) [#/Vol] 0 [facility] Bas[facility] WBC (Bld) 0 % 0.0 - 2.0 % [facility] Cells Counted Total (Bld) [#] 116 {cells} [facility] Eosinophils (Bld) [#/Vol] 0 10*3/uL [facility] Eosinophils/100 WBC (Bld) 0 % 0.0 - 6.0 % [facility] Lymphocytes (Bld) [#/Vol] 1.02 10*3/uL Low [facility] Lymphocytes/100 WBC (Bld) 3.4 % 13.0 - 44.0 % [facility] Monocytes (Bld) [#/Vol] 0.78 10*3/uL [facility] Monocytes/100 WBC (Bld) 2.6 % 2.0 - 10.0 % [facility] Myelocytes (Bld) [#/Vol] 0.27 10*3/uL [facility] Myelocytes/100 WBC (Bld) 0.9 % 0.0 - 0.0 % [facility] Neutrophils (Bld) [#/Vol] 27.25 10*3/uL [facility] Promyelocytes (Bld) [#/Vol] 0.27 10*3/uL [facility] Promyelocytes/100 WBC (Bld) 0.9 % 0.0 - 0.0 % [facility] RBC morphology finding Nom (Bld) No significant RBC morphology present [facility] Segmented neutrophils (Bld) [#/Vol] 22.58 10*3/uL [facility] Segmented neutrophils/100 WBC (Bld) 75 % 40.0 - 80.0 % [facility] Variant lymphocytes (Bld) [#/Vol] 0.51 10*3/uL [facility] Variant lymphocytes/100 WBC (Bld) 1.7 % 0.0 - 2.0 % [facility] Natriuretic peptide B [Mass/ Vol]on 10-13-2024 Interpretation and review of laboratory results Normal [facility] Natriuretic peptide B (Bld) [Mass/Vol] 6 pg/mL 0 - 99 pg/mL [facility] No Panel Informationon 10-13 Interpretation and review of laboratory results Abnormal [facility] Tissue/Wound Culture/SmearOr dered By: Alejandra Andrade on 10-13-2024 Bacteria identified Cx Nom (Unsp spec) (4+) Abundant Mixed Gram-Positive and Gram-Negative Bacteria [facility] Bacteria identified Cx Nom (Unsp spec) (4+) Abundant Mixed Anaerobic Bacteria [facility] Tropinin I.cardiac panel Hig h sensitivity methodon 10-13-2024 Interpretation and review of laboratory results Normal [facility] Troponin I, High Sensitivity on 10-13-2024 Tropinin I.cardiac panel High sensitivity method ng/L 0 - 53 ng/L [facility] Urinalysis complete W Reflex Culture panel (U)Ordered By: Vinita Arenas on 10-13-2024 Appearance (U) Clear Clear [facility] Bilirubin (U) [Mass/Vol] Negative NEGATIVE [facility] Color (U) Light-Yellow Light-Yellow, Yellow, Dark-Yellow [facility] Glucose Auto test strip (U) [Mass/Vol] Normal Normal mg/dL [facility] Interpretation and review of laboratory results Abnormal [facility] Ketones (U) [Mass/Vol] Negative NEGAT SULEMA mg/dL [facility] Leukocyte esterase Auto test strip Ql (U) Negative NEGATIVE [facility] Nitrite Auto test strip Ql (U) Negative NEGATIVE [facility] pH (U) 6.5 [pH] 5.0, 5.5, 6.0, 6.5, 7.0, 7.5, 8.0 [facility] Protein (U) [Mass/Vol] 10 (TRACE) NEGAT SULEMA, 10 (TRACE), 20 (TRACE) mg/dL [facility] RBC (U) [#/Vol] 0.03 (TRACE) Abnormal NEGATIVE [facility] Specific gravity (U) [Rel density] 1.023 1.005 - 1.035 [facility] Urobilinogen (U) [Mass/Vol] Normal Normal mg/dL [facility] Urinalysis complete W Reflex Culture panel (U)on 10-13-2024 Interpretation and review of laboratory results Normal [facility] Work Phone: RBC Auto (Urine sed) [#/Area] 3-5 NONE, 1-2, 3-5 /HPF [facility] Work Phone: WBC Auto (Urine sed) [#/Area] 1-5 1-5, NONE /HPF [facility] Work Phone: CBC W Auto Differential pane l (Bld)on 10-12-2024 Basophils (Bld) [#/Vol] 0.09 10*3/uL [facility] Basophils/100 WBC (Bld) 0.6 % 0.0 - 2.0 % [facility] Eosinophils (Bld) [#/Vol] 0.36 10*3/uL [facility] Eosinophils/100 WBC (Bld) 2.5 % 0.0 - 6.0 % [facility] Erythrocyte distribution width (RBC) [Ratio] 17.3 % High 11.5 - 14.5 % [facility] Hematocrit (Bld) [Volume fraction] 30.8 % Low 41.0 - 52.0 % [facility] Hemoglobin (Bld) [Mass/Vol] 9.5 g/dL Low 13.5 - 17.5 g/dL [facility] Immature granulocytes (Bld) [#/Vol] 0.15 10*3/uL [facility] Immature granulocytes/100 WBC (Bld) 1 % High 0.0 - 0.9 % [facility] Interpretation and review of laboratory results Abnormal [facility] Lymphocytes (Bld) [#/Vol] 2.52 10*3/uL [facility] Lymphocytes/100 WBC (Bld) 17.2 % 13.0 - 44.0 % [facility] MCH (RBC) [Entitic mass] 27.3 pg 26. 0 - 34.0 pg [facility] MCHC (RBC) [Mass/Vol] 30.8 g/dL Low 32.0 - 36.0 g/dL [facility] MCV (RBC) [Entitic vol] 89 fL 80 - 100 fL [facility] Monocytes (Bld) [#/Vol] 1.39 10*3/uL High [facility] Monocytes/100 WBC (Bld) 9.5 % 2.0 - 10.0 % [facility] Neutrophils (Bld) [#/Vol] 10.11 10*3/uL High [facility] Neutrophils/100 WBC (Bld) 69.2 % 40.0 - 80.0 % [facility] Nucleated RBC/100 WBC (Bld) [Ratio] 0 % [facility] Platelets (Bld) [#/Vol] 633 10*3/uL High [facility] RBC (Bld) [#/Vol] 3.48 10*6/uL Low [facility] WBC (Bld) [#/Vol] 14.6 10*3/uL High [facility] Comprehensive metabolic 2000 panelon 10-12-2024 Albumin BCP dye [Mass/Vol] 3.5 g/dL 3.4 - 5.0 g/dL [facility] ALP [Catalytic activity/Vol] 66 U/L 33 - 120 U/L [facility] ALT With P-5'-P [Catalytic activity/Vol] 8 U/L Low 10 - 52 U/L [facility] Anion gap [Moles/Vol] 14 mmol/L 10 - 2 0 mmol/L [facility] AST With P-5'-P [Catalytic activity/Vol] 11 U/L 9 - 39 U/L [facility] Bilirubin [Mass/Vol] 0.3 mg/dL 0.0 - 1 .2 mg/dL [facility] Calcium [Mass/Vol] 10 mg/dL 8.6 - 10. 6 mg/dL [facility] Chloride [Moles/Vol] 101 mmol/L 98 - 10 7 mmol/L [facility] CO2 [Moles/Vol] 25 mmol/L 21 - 32 mmol/L [facility] Creatinine [Mass/Vol] 1.61 mg/dL High 0.50 - 1.30 mg/dL [facility] GFR/1.73 sq M.predicted among non-blacks MDRD (S/P/Bld) [Vol rate/Area] 51 mL/min/{1.73_m2} Low - PINF [facility] Glucose [Mass/Vol] 100 mg/dL High 74 - 99 mg/dL [facility] Interpretation and review of laboratory results Abnormal [facility] Potassium [Moles/Vol] 4 mmol/L 3.5 - 5.3 mmol/L [facility] Protein [Mass/Vol] 7.4 g/dL 6.4 - 8.2 g/dL [facility] Sodium [Moles/Vol] 136 mmol/L 136 - 145 mmol/L [facility] Urea nitrogen [Mass/Vol] 16 mg/dL 6 - 23 mg/d L [facility] No Panel Informationon 10-12 [facility] Vancomycinon 10-12-2024 Vancomycin [Mass/Vol] 13.6 ug/mL 5.0 - 20.0 ug/mL [facility] Vancomycin [Mass/Vol]on 09-19 Interpretation and review of laboratory results Normal [facility] Blood type and Indirect anti body screen panel (Bld)on 10-11-2024 ABO group Nom (Bld) [facility] antibody screen Ql Negative [facility] D Ag Ql (Bld) Positive [facility] C-reactive proteinon 025 CRP [Mass/Vol] 7.72 mg/dL High NINF - 1.00 mg/dL [facility] CBC W Auto Differential pane l (Bld)on 10-11-2024 Basophils (Bld) [#/Vol] 0.06 10*3/uL [facility] Basophils/100 WBC (Bld) 0.4 % 0.0 - 2.0 % [facility] Eosinophils (Bld) [#/Vol] 0.39 10*3/uL [facility] Eosinophils/100 WBC (Bld) 2.7 % 0.0 - 6.0 % [facility] Erythrocyte distribution width (RBC) [Ratio] 17.2 % High 11.5 - 14.5 % [facility] Hematocrit (Bld) [Volume fraction] 28.7 % Low 41.0 - 52.0 % [facility] Hemoglobin (Bld) [Mass/Vol] 9.6 g/dL Low 13.5 - 17.5 g/dL [facility] Immature granulocytes (Bld) [#/Vol] 0.17 10*3/uL [facility] Immature granulocytes/100 WBC (Bld) 1.2 % High 0.0 - 0.9 % [facility] Interpretation and review of laboratory results Abnormal [facility] Lymphocytes (Bld) [#/Vol] 3.37 10*3/uL [facility] Lymphocytes/100 WBC (Bld) 23.6 % 13.0 - 44.0 % [facility] MCH (RBC) [Entitic mass] 28.2 pg 26. 0 - 34.0 pg [facility] MCHC (RBC) [Mass/Vol] 33.4 g/dL 32.0 - 36.0 g/dL [facility] MCV (RBC) [Entitic vol] 84 fL 80 - 100 fL [facility] Monocytes (Bld) [#/Vol] 1.62 10*3/uL High [facility] Monocytes/100 WBC (Bld) 11.3 % 2.0 - 10.0 % [facility] Neutrophils (Bld) [#/Vol] 8.67 10*3/uL High [facility] Neutrophils/100 WBC (Bld) 60.8 % 40.0 - 80.0 % [facility] Nucleated RBC/100 WBC (Bld) [Ratio] 0 % [facility] Platelets (Bld) [#/Vol] 650 10*3/uL High [facility] RBC (Bld) [#/Vol] 3.4 10*6/uL Low [facility] WBC (Bld) [#/Vol] 14.3 10*3/uL High [facility] CRP [Mass/Vol]on 10-11-2024 Interpretation and review of laboratory results Abnormal [facility] ESR Westergren method (Bld) [Velocity]on 10-11-2024 ESR (Bld) [Velocity] mm/h High 0 - 20 mm/h [facility] Interpretation and review of laboratory results Abnormal [facility] Extra Urine Rhodes Tubeon 09-19 Extra Tube Hold for add-ons. [facility] Ferritinon 10-11-2024 Ferritin [Mass/Vol] 259 ng/mL 20 - 300 ng/mL [facility] Ferritin [Mass/Vol]on 2024 Interpretation and review of laboratory results Normal [facility] Iron and Iron binding capaci ty panelon 10-11-2024 Interpretation and review of laboratory results Abnormal [facility] Iron [Mass/Vol] 24 ug/dL Low 35 - 150 ug/dL [facility] Iron binding capacity [Mass/Vol] 218 ug/dL Low 240 - 445 ug/dL [facility] Iron binding capacity.unsaturated [Mass/Vol] 194 ug/dL 110 - 370 ug/dL [facility] Iron saturation [Mass fraction] 11 % Low 25 - 45 % [facility] Magnesiumon 10-11-2024 Magnesium [Mass/Vol] 2.19 mg/dL 1.60 - 2.40 mg/dL [facility] Magnesium [Mass/Vol]on 10-11 Interpretation and review of laboratory results Normal [facility] No Panel Informationon 10-11 [facility] Renal function 2000 panelon 10-11-2024 Albumin BCP dye [Mass/Vol] 3.3 g/dL Low 3.4 - 5.0 g/dL [facility] Anion gap [Moles/Vol] 12 mmol/L 10 - 2 0 mmol/L [facility] Calcium [Mass/Vol] 9.4 mg/dL 8.6 - 10. 6 mg/dL [facility] Chloride [Moles/Vol] 106 mmol/L 98 - 10 7 mmol/L [facility] CO2 [Moles/Vol] 24 mmol/L 21 - 32 mmol/L [facility] Creatinine [Mass/Vol] 1.6 mg/dL High 0.50 - 1.30 mg/dL [facility] GFR/1.73 sq M.predicted among non-blacks MDRD (S/P/Bld) [Vol rate/Area] 52 mL/min/{1.73_m2} Low - PINF [facility] Glucose [Mass/Vol] 79 mg/dL 74 - 99 mg/dL [facility] Interpretation and review of laboratory results Abnormal [facility] Phosphate [Mass/Vol] 3.8 mg/dL 2.5 - 4 .9 mg/dL [facility] Potassium [Moles/Vol] 4.1 mmol/L 3.5 - 5.3 mmol/L [facility] Sodium [Moles/Vol] 138 mmol/L 136 - 145 mmol/L [facility] Urea nitrogen [Mass/Vol] 20 mg/dL 6 - 23 mg/d L [facility] Urinalysis complete W Reflex Culture panel (U)on 10-11-2024 Appearance (U) Clear Clear [facility] Bilirubin (U) [Mass/Vol] Negative NEGATIVE [facility] Color (U) Light-Yellow Light-Yellow, Yellow, Dark-Yellow [facility] Glucose Auto test strip (U) [Mass/Vol] Normal Normal mg/dL [facility] Interpretation and review of laboratory results Abnormal [facility] Ketones (U) [Mass/Vol] Negative NEGAT SULEMA mg/dL [facility] Leukocyte esterase Auto test strip Ql (U) Negative NEGATIVE [facility] Nitrite Auto test strip Ql (U) Negative NEGATIVE [facility] pH (U) 7 [pH] 5.0, 5.5, 6.0, 6.5, 7.0, 7.5, 8.0 [facility] Protein (U) [Mass/Vol] Negative NEGAT SULEMA, 10 (TRACE), 20 (TRACE) mg/dL [facility] RBC (U) [#/Vol] Negative NEGATIVE [facility] Specific gravity (U) [Rel density] 1.037 Abnormal 1.005 - 1.035 [facility] Urobilinogen (U) [Mass/Vol] Normal Normal mg/dL [facility] Urine electrolyteson 025 Chloride (U) [Moles/Vol] 123 mmol/L [facility] Chloride/Creatinine Ratio 89 [facility] Creatinine (U) [Mass/Vol] 138.4 mg/dL 20.0 - 370.0 mg/dL [facility] Potassium (U) [Moles/Vol] 50 mmol/L [facility] Potassium/Creatinine (U) [Ratio] 36 Not established mmol/g [facility] Sodium (U) [Moles/Vol] 123 mmol/L [facility] Sodium/Creatinine (U) [Ratio] 89 Not established. mmol/g Creat [facility] Blood type and Indirect anti body screen panel (Bld)on 10-10-2024 ABO group Nom (Bld) A [facility] Blood group antibody screen Ql Negative [facility] D Ag Ql (Bld) Positive [facility] CBC W Auto Differential pane l (Bld)on 10-10-2024 Basophils (Bld) [#/Vol] 0.08 10*3/uL [facility] Basophils/100 WBC (Bld) 0.5 % 0.0 - 2.0 % [facility] Eosinophils (Bld) [#/Vol] 0.25 10*3/uL [facility] Eosinophils/100 WBC (Bld) 1.4 % 0.0 - 6.0 % [facility] Erythrocyte distribution width (RBC) [Ratio] 17.4 % High 11.5 - 14.5 % [facility] Hematocrit (Bld) [Volume fraction] 31.9 % Low 41.0 - 52.0 % [facility] Hemoglobin (Bld) [Mass/Vol] 10.5 g/dL Low 13.5 - 17.5 g/dL [facility] Immature granulocytes (Bld) [#/Vol] 0.4 10*3/uL [facility] Immature granulocytes/100 WBC (Bld) 2.3 % High 0.0 - 0.9 % [facility] Interpretation and review of laboratory results Abnormal [facility] Lymphocytes (Bld) [#/Vol] 2.73 10*3/uL [facility] Lymphocytes/100 WBC (Bld) 15.6 % 13.0 - 44.0 % [facility] MCH (RBC) [Entitic mass] 27.5 pg 26. 0 - 34.0 pg [facility] MCHC (RBC) [Mass/Vol] 32.9 g/dL 32.0 - 36.0 g/dL [facility] MCV (RBC) [Entitic vol] 84 fL 80 - 100 fL [facility] Monocytes (Bld) [#/Vol] 1.6 10*3/uL High [facility] Monocytes/100 WBC (Bld) 9.1 % 2.0 - 10.0 % [facility] Neutrophils (Bld) [#/Vol] 12.45 10*3/uL High [facility] Neutrophils/100 WBC (Bld) 71.1 % 40.0 - 80.0 % [facility] Nucleated RBC/100 WBC (Bld) [Ratio] 0 % [facility] Platelets (Bld) [#/Vol] 721 10*3/uL High [facility] RBC (Bld) [#/Vol] 3.82 10*6/uL Low Unive [facility] WBC (Bld) [#/Vol] 17.5 10*3/uL High [facility] CT Pelvis W contrast Mp [facility] MMODAL UH MMODAL [facility] Work Phone: Radiology Study observation (narrative) [facility] Work Phone: CT Pelvis W contrast IVOrder ed By: Beronica Valentin on 10-10-2024 [facility] Work Phone: Comprehensive metabolic 2000 panelon 10-10-2024 Albumin BCP dye [Mass/Vol] 3.8 g/dL 3.4 - 5.0 g/dL [facility] ALP [Catalytic activity/Vol] 79 U/L 33 - 120 U/L [facility] ALT With P-5'-P [Catalytic activity/Vol] 14 U/L 10 - 52 U/L [facility] Anion gap [Moles/Vol] 16 mmol/L 10 - 2 0 mmol/L [facility] AST With P-5'-P [Catalytic activity/Vol] 9 U/L 9 - 39 U/L [facility] Bilirubin [Mass/Vol] 0.2 mg/dL 0.0 - 1 .2 mg/dL [facility] Calcium [Mass/Vol] 10.4 mg/dL 8.6 - 10. 6 mg/dL [facility] Chloride [Moles/Vol] 104 mmol/L 98 - 10 7 mmol/L [facility] CO2 [Moles/Vol] 23 mmol/L 21 - 32 mmol/L [facility] Creatinine [Mass/Vol] 1.69 mg/dL High 0.50 - 1.30 mg/dL [facility] GFR/1.73 sq M.predicted among non-blacks MDRD (S/P/Bld) [Vol rate/Area] 49 mL/min/{1.73_m2} Low - PINF [facility] Glucose [Mass/Vol] 105 mg/dL High 74 - 99 mg/dL [facility] Interpretation and review of laboratory results Abnormal [facility] Potassium [Moles/Vol] 4.1 mmol/L 3.5 - 5.3 mmol/L [facility] Protein [Mass/Vol] 7.9 g/dL 6.4 - 8.2 g/dL [facility] Sodium [Moles/Vol] 139 mmol/L 136 - 145 mmol/L [facility] Urea nitrogen [Mass/Vol] 21 mg/dL 6 - 23 mg/d L [facility] Gas panel (BldV)on 5 Anion gap 4 (BldV) [Moles/Vol] 11 mmol/L 10.0 - 25.0 mmol/L [facility] Base excess Calc (BldV) [Moles/Vol] 0.9 mmol/L -2.0 - 3.0 mmol/L [facility] Calcium.ionized (BldV) [Moles/Vol] 1.31 mmol/L 1.10 - 1.33 mmol/L [facility] Chloride (BldV) [Moles/Vol] 106 mmol/L 98 - 107 mmol/L [facility] CO2 (BldV) [Partial pressure] 38 mm[Hg] Low [facility] Glucose [Mass/Vol] 109 mg/dL High 74 - 99 mg/dL [facility] HCO3 (Bld) [Moles/Vol] 25.2 mmol/L 22.0 - 26.0 mmol/L [facility] Hematocrit Est (Bld) [Volume fraction] 31 % Low 41.0 - 52.0 % [facility] Hemoglobin (Bld) [Mass/Vol] 10.2 g/dL Low 13.5 - 17.5 g/dL [facility] Inhaled oxygen concentration 21 % [facility] Interpretation and review of laboratory results Abnormal [facility] Lactate (BldV) [Moles/Vol] 1.2 mmol/L 0.4 - 2.0 mmol/L [facility] Oxygen (BldV) [Partial pressure] 43 mm[Hg] [facility] Oxygen saturation in Venous blood 78 % High 45 - 75 % [facility] Oxyhemoglobin (BldV) [Mass fraction] 74.1 % 45.0 - 75.0 % [facility] pH (BldV) 7.43 [pH] 7.33 - 7.43 pH [facility] Potassium (BldV) [Moles/Vol] 4.7 mmol/L 3.5 - 5.3 mmol/L [facility] Sodium (BldV) [Moles/Vol] 137 mmol/L 136 - 145 mmol/L [facility] PT and aPTT panel Coag (PPP) on 10-10-2024 aPTT Coag (PPP) [Time] 32 s Un [facility] INR Coag (PPP) [Relative time] 1.2 {INR} High 0.9 - 1.1 [facility] Interpretation and review of laboratory results Abnormal [facility] PT Coag (PPP) [Time] 13.8 s High [facility] XR Chest Single viewon 10-10 [facility] MMODAL [facility] MMODAL [facility] Work Phone: Radiology Study observation (narrative) [facility] Work Phone: XR Chest Single viewOrdered By: Perry Baires on 10-10-2024 [facility] Work Phone: CBC W Auto Differential pane l (Bld)on 09-17-2024 Basophils (Bld) [#/Vol] 0.06 10*3/uL [facility] Basophils/100 WBC (Bld) 0.5 % 0.0 - 2.0 % [facility] Eosinophils (Bld) [#/Vol] 0.41 10*3/uL [facility] Eosinophils/100 WBC (Bld) 3.3 % 0.0 - 6.0 % [facility] Erythrocyte distribution width (RBC) [Ratio] 17.2 % High 11.5 - 14.5 % [facility] Hematocrit (Bld) [Volume fraction] 27.5 % Low 41.0 - 52.0 % [facility] Hemoglobin (Bld) [Mass/Vol] 8.5 g/dL Low 13.5 - 17.5 g/dL [facility] Immature granulocytes (Bld) [#/Vol] 0.22 10*3/uL [facility] Immature granulocytes/100 WBC (Bld) 1.8 % High 0.0 - 0.9 % [facility] Comment on above: Immature Granulocyte Count (IG) includes promyelocytes, myelocytes and metamyelocytes but does not include bands. Percent differential counts (%) should be interpreted in the context of the absolute cell counts (cells/UL). Interpretation and review of laboratory results Abnormal [facility] Lymphocytes (Bld) [#/Vol] 2.5 10*3/uL [facility] Lymphocytes/100 WBC (Bld) 20.3 % 13.0 - 44.0 % [facility] MCH (RBC) [Entitic mass] 27.2 pg 26. 0 - 34.0 pg [facility] MCHC (RBC) [Mass/Vol] 30.9 g/dL Low 32.0 - 36.0 g/dL [facility] MCV (RBC) [Entitic vol] 88 fL 80 - 100 fL [facility] Monocytes (Bld) [#/Vol] 0.83 10*3/uL [facility] Monocytes/100 WBC (Bld) 6.8 % 2.0 - 10.0 % [facility] Neutrophils (Bld) [#/Vol] 8.27 10*3/uL High [facility] Comment on above: Percent differential counts (%) should be interpreted in the context of the absolute cell counts (cells/uL). Neutrophils/100 WBC (Bld) 67.3 % 40.0 - 80.0 % [facility] Nucleated RBC/100 WBC (Bld) [Ratio] 0 % [facility] Platelets (Bld) [#/Vol] 635 10*3/uL High [facility] RBC (Bld) [#/Vol] 3.13 10*6/uL Low [facility] WBC (Bld) [#/Vol] 12.3 10*3/uL [place] [facility] Crypt[place] sp Ag LA Ql (Un sp spec)Ordered By: Makenna Grider on 09-17-2024 Interpretation and review of laboratory results Normal [facility] Fungitell Beta-D Glucan Seru mon 09-17-2024 Fungitell Beta-D Glucan,Serum <31 NINF - 80 pg/mL [facility] Comment on above: Interpretation: The Fungitell assay does not detect certain fungal species such as the genus Cryptococcus (Karli et al. 1991) which produces very low levels of (1-3)-Ijyt-T-Btvsny. The assay also does not detect the Zygomycetes such as Absidia, Mucor and Rhizopus (Jason et al. 1994) which are not known to produce (1-3)-Osyz-F-Vpvtqo. In addition, the yeast phase of Blastomyces dermatitidis produces little (1-3)-Znyv-W-Snqavk and may not be detected by the [...] characteristics for these modifications were determined by [email or web address]. If sample result is greater than 500 pg/mL, physician may order a titer of the sample. Please contact [email or web address] if you would like to order a retest of this sample to obtain an actual value. Samples are held for 1 week after initial testing date. Testing Performed at: [facility] [address] [place] [address] Enroute Controller: Perry Bueno, PhD ALONDRA (ABB) CLIA # [id number] FLAG Interpretation: A = Abnormal, H = High, L = Low [facility] Laboratory - Chemistry and C hemistry - challengeon 09-17-2024 Magnesium [Mass/Vol] 2.44 mg/dL High 1.60 - 2.40 mg/dL [facility] Laboratory - Microbiology an d Antimicrobial susceptibilityOrdered By: Makenna Grider on 09-17-2024 Cryptococcus sp Ag LA Ql (Unsp spec) Negative Negative, Invalid [facility] No Panel Informationon 09-17 Aspergillus Galactomanan EIA,S 0.027 NINF - 0.500 [facility] Comment on above: Interpretation: Sydni ents with [...] Aspergillus Galactomannan EIA is a product of [employer] and is FDA approved for in vitro diagnostic use. Testing Performed at: [facility] [id number], [place] [address] Enroute Controller: Perry Bueno, PhD ALONDRA (ABB) CLIA # [id number] FLAG Interpretation: A = Abnormal, H = High, L = Low [facility] Interpretation and review of laboratory results Abnormal [facility] Renal function 2000 panelon 09-17-2024 Albumin BCP dye [Mass/Vol] 3.1 g/dL Low 3.4 - 5.0 g/dL [facility] Anion gap [Moles/Vol] 16 mmol/L 10 - 2 0 mmol/L [facility] Calcium [Mass/Vol] 9.1 mg/dL 8.6 - 10. 6 mg/dL [facility] Chloride [Moles/Vol] 106 mmol/L 98 - 10 7 mmol/L [facility] CO2 [Moles/Vol] 23 mmol/L 21 - 32 mmol/L [facility] Creatinine [Mass/Vol] 1.89 mg/dL High 0.50 - 1.30 mg/dL [facility] GFR/1.73 sq M.predicted among non-blacks MDRD (S/P/Bld) [Vol rate/Area] 42 mL/min/{1.73_m2} Low - PINF [facility] Comment on above: Calculations of vern mated GFR are performed using the 2020 CKD-EPI Study Refit equation without the race variable for the IDMS-Traceable creatinine methods. https://jasn.asnjournals.org/content/early/ASN.023 9478828 Glucose [Mass/Vol] 85 mg/dL 74 - 99 mg/dL [facility] Phosphate [Mass/Vol] 4.2 mg/dL 2.5 - 4 .9 mg/dL [facility] Comment on above: The performance andres acteristics of phosphorus testing in heparinized plasma have been validated by the individual laboratory site where testing is performed. Testing on heparinized plasma is not approved by the FDA; however, such approval is not necessary. Potassium [Moles/Vol] 4.5 mmol/L 3.5 - 5.3 mmol/L [facility] Sodium [Moles/Vol] 140 mmol/L 136 - 145 mmol/L [facility] Urea nitrogen [Mass/Vol] 15 mg/dL 6 - 23 mg/d L [facility] Bacteria identified Cx Nom ( Unsp spec)on 09-16-2024 Beta lactamase organism identified Nom (Isol) Positive [facility] Work Phone: [phone] Microscopic observation Gram stain Nom (Unsp spec) No polymorphonuclear leukocytes seen [facility] Work Phone: [phone] Microscopic observation Gram stain Nom (Unsp spec) No organisms seen [facility] Work Phone: [phone] [facility] Work Phone: [phone] Beta lactamase organism identified Nom (Isol) Positive [facility] Work Phone: [phone] Interpretation and review of laboratory results Abnormal [facility] Work Phone: [phone] Microscopic observation Gram stain Nom (Unsp spec) (4+) Abundant Polymorphonuclear leukocytes Abnormal [facility] Work Phone: [phone] Microscopic observation Gram stain Nom (Unsp spec) Positive Abnormal [facility] Work Phone: )[phone] [facility] Work Phone: [phone] Bacteria identified Cx Nom ( Unsp spec)Ordered By: Phil Casas on 09-16-2024 Beta lactamase organism identified Nom (Isol) Positive [facility] Interpretation and review of laboratory results Abnormal [facility] Microscopic observation Gram stain Nom (Unsp spec) (4+) Abundant Polymorphonuclear leukocytes Abnormal [facility] Microscopic observation Gram stain Nom (Unsp spec) Positive Abnormal [facility] CBC W Auto Differential pane l (Bld)on 09-16-2024 Basophils (Bld) [#/Vol] 0.05 10*3/uL [facility] Basophils/100 WBC (Bld) 0.4 % 0.0 - 2.0 % [facility] Eosinophils (Bld) [#/Vol] 0.51 10*3/uL [facility] Eosinophils/100 WBC (Bld) 4.1 % 0.0 - 6.0 % [facility] Erythrocyte distribution width (RBC) [Ratio] 17.1 % High 11.5 - 14.5 % [facility] Hematocrit (Bld) [Volume fraction] 25.8 % Low 41.0 - 52.0 % [facility] Hemoglobin (Bld) [Mass/Vol] 8.2 g/dL Low 13.5 - 17.5 g/dL [facility] Immature granulocytes (Bld) [#/Vol] 0.13 10*3/uL [facility] Immature granulocytes/100 WBC (Bld) 1.1 % High 0.0 - 0.9 % [facility] Comment on above: Immature Granulocyte Count (IG) includes promyelocytes, myelocytes and metamyelocytes but does not include bands. Percent differential counts (%) should be interpreted in the context of the absolute cell counts (cells/UL). Interpretation and review of laboratory results Abnormal [facility] Lymphocytes (Bld) [#/Vol] 2.74 10*3/uL [facility] Lymphocytes/100 WBC (Bld) 22.2 % 13.0 - 44.0 % [facility] MCH (RBC) [Entitic mass] 28.1 pg 26. 0 - 34.0 pg [facility] MCHC (RBC) [Mass/Vol] 31.8 g/dL Low 32.0 - 36.0 g/dL [facility] MCV (RBC) [Entitic vol] 88 fL 80 - 100 fL [facility] Monocytes (Bld) [#/Vol] 0.72 10*3/uL [facility] Monocytes/100 WBC (Bld) 5.8 % 2.0 - 10.0 % [facility] Neutrophils (Bld) [#/Vol] 8.18 10*3/uL High [facility] Comment on above: Percent differential counts (%) should be interpreted in the context of the absolute cell counts (cells/uL). Neutrophils/100 WBC (Bld) 66.4 % 40.0 - 80.0 % [facility] Nucleated RBC/100 WBC (Bld) [Ratio] 0 % [facility] Platelets (Bld) [#/Vol] 597 10*3/uL High [facility] RBC (Bld) [#/Vol] 2.92 10*6/uL Low [facility] WBC (Bld) [#/Vol] 12.3 10*3/uL [place] [facility] [place] - Chemistry and C hemistry - challengeon 09-16-2024 Magnesium [Mass/Vol] 2.4 mg/dL 1.60 - 2.40 mg/dL [facility] Laboratory - Drug toxicology on 09-16-2024 Vancomycin [Mass/Vol] 17.6 ug/mL 5.0 - 20.0 ug/mL [facility] Vancomycin [Mass/Vol] 18 ug/mL 5.0 - 20.0 ug/mL [facility] Laboratory - Microbiology an d Antimicrobial susceptibilityon 09-16-2024 Bacteria identified Cx Nom (Unsp spec) (1+) Rare Mixed Skin Microorganisms [facility] Work Phone: Bacteria identified Cx Nom (Unsp spec) (3+) Moderate Mixed Anaerobic Bacteria [facility] Work Phone: Bacteria identified Cx Nom (Unsp spec) (4+) Abundant Mixed Aerobic and Anaerobic Bacteria [facility] Work Phone: Laboratory - Microbiology an d Antimicrobial susceptibilityOrdered By: Phil Casas on 09-16-2024 Bacteria identified Cx Nom (Unsp spec) (2+) Few Mixed Aerobic and Anaerobic Bacteria [facility] Magnesium [Mass/Vol]on 09-16 Interpretation and review of laboratory results Normal [facility] No Panel Informationon 09-16 [facility] Renal function 2000 panelon 09-16-2024 Albumin BCP dye [Mass/Vol] 3.2 g/dL Low 3.4 - 5.0 g/dL [facility] Anion gap [Moles/Vol] 15 mmol/L 10 - 2 0 mmol/L [facility] Calcium [Mass/Vol] 9.3 mg/dL 8.6 - 10. 6 mg/dL [facility] Chloride [Moles/Vol] 104 mmol/L 98 - 10 7 mmol/L [facility] CO2 [Moles/Vol] 26 mmol/L 21 - 32 mmol/L [facility] Creatinine [Mass/Vol] 1.88 mg/dL High 0.50 - 1.30 mg/dL [facility] GFR/1.73 sq M.predicted among non-blacks MDRD (S/P/Bld) [Vol rate/Area] 43 mL/min/{1.73_m2} Low - PINF [facility] Comment on above: Calculations of vern mated GFR are performed using the 2020 CKD-EPI Study Refit equation without the race variable for the IDMS-Traceable creatinine methods. https://jasn.asnjournals.org/content//ASN.245 6676035 Glucose [Mass/Vol] 91 mg/dL 74 - 99 mg/dL [facility] Interpretation and review of laboratory results Abnormal [facility] Phosphate [Mass/Vol] 4 mg/dL 2.5 - 4 .9 mg/dL [facility] Comment on above: The performance andres acteristics of phosphorus testing in heparinized plasma have been validated by the individual laboratory site where testing is performed. Testing on heparinized plasma is not approved by the FDA; however, such approval is not necessary. Potassium [Moles/Vol] 4.6 mmol/L 3.5 - 5.3 mmol/L [facility] Sodium [Moles/Vol] 140 mmol/L 136 - 145 mmol/L [facility] Urea nitrogen [Mass/Vol] 15 mg/dL 6 - 23 mg/d L [facility] Vancomycin [Mass/Vol]on 08-20 Interpretation and review of laboratory results Normal [facility] Vancomycin levels can be monitored according to [...] 30.0-40.0 ug/mL Trough (all ages): 10.0-20.0 ug/mL [facility] Interpretation and review of laboratory results Normal [facility] Vancomycin levels can be monitored according to [...] 30.0-40.0 ug/mL Trough (all ages): 10.0-20.0 ug/mL [facility] CBC W Auto Differential pane l (Bld)on 09-15-2024 Basophils (Bld) [#/Vol] 0.05 10*3/uL [facility] Basophils/100 WBC (Bld) 0.4 % 0.0 - 2.0 % [facility] Eosinophils (Bld) [#/Vol] 0.43 10*3/uL [facility] Eosinophils/100 WBC (Bld) 3.9 % 0.0 - 6.0 % [facility] Erythrocyte distribution width (RBC) [Ratio] 16.7 % High 11.5 - 14.5 % [facility] Hematocrit (Bld) [Volume fraction] 25.2 % Low 41.0 - 52.0 % [facility] Hemoglobin (Bld) [Mass/Vol] 8.1 g/dL Low 13.5 - 17.5 g/dL [facility] Immature granulocytes (Bld) [#/Vol] 0.15 10*3/uL [facility] Immature granulocytes/100 WBC (Bld) 1.3 % High 0.0 - 0.9 % [facility] Comment on above: Immature Granulocyte Count (IG) includes promyelocytes, myelocytes and metamyelocytes but does not include bands. Percent differential counts (%) should be interpreted in the context of the absolute cell counts (cells/UL). Interpretation and review of laboratory results Abnormal [facility] Lymphocytes (Bld) [#/Vol] 2.38 10*3/uL [facility] Lymphocytes/100 WBC (Bld) 21.4 % 13.0 - 44.0 % [facility] MCH (RBC) [Entitic mass] 28.1 pg 26. 0 - 34.0 pg [facility] MCHC (RBC) [Mass/Vol] 32.1 g/dL 32.0 - 36.0 g/dL [facility] MCV (RBC) [Entitic vol] 88 fL 80 - 100 fL [facility] Monocytes (Bld) [#/Vol] 0.69 10*3/uL [facility] Monocytes/100 WBC (Bld) 6.2 % 2.0 - 10.0 % [facility] Neutrophils (Bld) [#/Vol] 7.44 10*3/uL [facility] Comment on above: Percent differential counts (%) should be interpreted in the context of the absolute cell counts (cells/uL). Neutrophils/100 WBC (Bld) 66.8 % 40.0 - 80.0 % [facility] Nucleated RBC/100 WBC (Bld) [Ratio] 0 % [facility] Platelets (Bld) [#/Vol] 526 10*3/uL High [facility] RBC (Bld) [#/Vol] 2.88 10*6/uL Low [facility] WBC (Bld) [#/Vol] 11.1 10*3/uL [facility] [place] - Chemistry and C hemistry - challengeon 09-15-2024 Magnesium [Mass/Vol] 2.26 mg/dL 1.60 - 2.40 mg/dL [facility] Magnesium [Mass/Vol]on 09-15 Interpretation and review of laboratory results Normal [facility] No Panel Informationon 09-15 [facility] Renal function 2000 panelon 09-15-2024 Albumin BCP dye [Mass/Vol] 3.1 g/dL Low 3.4 - 5.0 g/dL [facility] Anion gap [Moles/Vol] 15 mmol/L 10 - 2 0 mmol/L [facility] Calcium [Mass/Vol] 8.9 mg/dL 8.6 - 10. 6 mg/dL [facility] Chloride [Moles/Vol] 105 mmol/L 98 - 10 7 mmol/L [facility] CO2 [Moles/Vol] 24 mmol/L 21 - 32 mmol/L [facility] Creatinine [Mass/Vol] 1.77 mg/dL High 0.50 - 1.30 mg/dL [facility] GFR/1.73 sq M.predicted among non-blacks MDRD (S/P/Bld) [Vol rate/Area] 46 mL/min/{1.73_m2} Low - PINF [facility] Comment on above: Calculations of vern mated GFR are performed using the 2020 CKD-EPI Study Refit equation without the race variable for the IDMS-Traceable creatinine methods. https://jasn.asnjournals.org/content//ASN.408 4701098 Glucose [Mass/Vol] 122 mg/dL High 74 - 99 mg/dL [facility] Interpretation and review of laboratory results Abnormal [facility] Phosphate [Mass/Vol] 4.3 mg/dL 2.5 - 4 .9 mg/dL [facility] Comment on above: The performance andres acteristics of phosphorus testing in heparinized plasma have been validated by the individual laboratory site where testing is performed. Testing on heparinized plasma is not approved by the FDA; however, such approval is not necessary. Potassium [Moles/Vol] 4 mmol/L 3.5 - 5.3 mmol/L [facility] Sodium [Moles/Vol] 140 mmol/L 136 - 145 mmol/L [facility] Urea nitrogen [Mass/Vol] 18 mg/dL 6 - 23 mg/d L [facility] Albumin BCP dye [Mass/Vol] 3 g/dL Low 3.4 - 5.0 g/dL [facility] Anion gap [Moles/Vol] 13 mmol/L 10 - 2 0 mmol/L [facility] Calcium [Mass/Vol] 9 mg/dL 8.6 - 10. 6 mg/dL [facility] Chloride [Moles/Vol] 106 mmol/L 98 - 10 7 mmol/L [facility] CO2 [Moles/Vol] 24 mmol/L 21 - 32 mmol/L [facility] Creatinine [Mass/Vol] 1.7 mg/dL High 0.50 - 1.30 mg/dL [facility] GFR/1.73 sq M.predicted among non-blacks MDRD (S/P/Bld) [Vol rate/Area] 48 mL/min/{1.73_m2} Low - PINF [facility] Comment on above: Calculations of vern mated GFR are performed using the 2020 CKD-EPI Study Refit equation without the race variable for the IDMS-Traceable creatinine methods. https://jasn.asnjournals.org/content//ASN.259 3883511 Glucose [Mass/Vol] 116 mg/dL High 74 - 99 mg/dL [facility] Interpretation and review of laboratory results Abnormal [facility] Phosphate [Mass/Vol] 4.6 mg/dL 2.5 - 4 .9 mg/dL [facility] Comment on above: The performance andres acteristics of phosphorus testing in heparinized plasma have been validated by the individual laboratory site where testing is performed. Testing on heparinized plasma is not approved by the FDA; however, such approval is not necessary. Potassium [Moles/Vol] 4 mmol/L 3.5 - 5.3 mmol/L [facility] Sodium [Moles/Vol] 139 mmol/L 136 - 145 mmol/L [facility] Urea nitrogen [Mass/Vol] 17 mg/dL 6 - 23 mg/d L [facility] Blood type and Indirect anti body screen panel (Bld)on 09-14-2024 ABO group Nom (Bld) A [facility] Blood group antibody screen Ql Negative [facility] D Ag Ql (Bld) Positive [facility] Comment on above: 2nd ABO test require d. Order and Collect VERAB [facility] CBC W Auto Differential pane l (Bld)on 09-14-2024 Basophils (Bld) [#/Vol] 0.05 10*3/uL [facility] Basophils/100 WBC (Bld) 0.4 % 0.0 - 2.0 % [facility] Eosinophils (Bld) [#/Vol] 0.47 10*3/uL [facility] Eosinophils/100 WBC (Bld) 3.6 % 0.0 - 6.0 % [facility] Erythrocyte distribution width (RBC) [Ratio] 16.8 % High 11.5 - 14.5 % [facility] Hematocrit (Bld) [Volume fraction] 24.4 % Low 41.0 - 52.0 % [facility] Hemoglobin (Bld) [Mass/Vol] 7.9 g/dL Low 13.5 - 17.5 g/dL [facility] Immature granulocytes (Bld) [#/Vol] 0.07 10*3/uL [facility] Immature granulocytes/100 WBC (Bld) 0.5 % 0.0 - 0.9 % [facility] Comment on above: Immature Granulocyte Count (IG) includes promyelocytes, myelocytes and metamyelocytes but does not include bands. Percent differential counts (%) should be interpreted in the context of the absolute cell counts (cells/UL). Interpretation and review of laboratory results Abnormal [facility] Lymphocytes (Bld) [#/Vol] 1.93 10*3/uL [facility] Lymphocytes/100 WBC (Bld) 14.8 % 13.0 - 44.0 % [facility] MCH (RBC) [Entitic mass] 28.1 pg 26. 0 - 34.0 pg [facility] MCHC (RBC) [Mass/Vol] 32.4 g/dL 32.0 - 36.0 g/dL [facility] MCV (RBC) [Entitic vol] 87 fL 80 - 100 fL [facility] Monocytes (Bld) [#/Vol] 1.3 10*3/uL High [facility] Monocytes/100 WBC (Bld) 10 % 2.0 - 10.0 % [facility] Neutrophils (Bld) [#/Vol] 9.23 10*3/uL High [facility] Comment on above: Percent differential counts (%) should be interpreted in the context of the absolute cell counts (cells/uL). Neutrophils/100 WBC (Bld) 70.7 % 40.0 - 80.0 % [facility] Nucleated RBC/100 WBC (Bld) [Ratio] 0 % [facility] Platelets (Bld) [#/Vol] 528 10*3/uL High [facility] RBC (Bld) [#/Vol] 2.81 10*6/uL Low [facility] WBC (Bld) [#/Vol] 13.1 10*3/uL [place] [facility] CBC W Auto Differential pane l (Bld)Ordered By: Estephania Tom on 09-14-2024 Basophils (Bld) [#/Vol] 0.04 10*3/uL [facility] Basophils/100 WBC (Bld) 0.3 % 0.0 - 2.0 % [facility] Eosinophils (Bld) [#/Vol] 0.63 10*3/uL [facility] Eosinophils/100 WBC (Bld) 4.7 % 0.0 - 6.0 % [facility] Erythrocyte distribution width (RBC) [Ratio] 16.7 % High 11.5 - 14.5 % [facility] Hematocrit (Bld) [Volume fraction] 24.7 % Low 41.0 - 52.0 % [facility] Hemoglobin (Bld) [Mass/Vol] 7.8 g/dL Low 13.5 - 17.5 g/dL [facility] Immature granulocytes (Bld) [#/Vol] 0.08 10*3/uL [facility] Immature granulocytes/100 WBC (Bld) 0.6 % 0.0 - 0.9 % [facility] Comment on above: Immature Granulocyte Count (IG) includes promyelocytes, myelocytes and metamyelocytes but does not include bands. Percent differential counts (%) should be interpreted in the context of the absolute cell counts (cells/UL). Interpretation and review of laboratory results Abnormal [facility] Lymphocytes (Bld) [#/Vol] 2.35 10*3/uL [facility] Lymphocytes/100 WBC (Bld) 17.5 % 13.0 - 44.0 % [facility] MCH (RBC) [Entitic mass] 27.6 pg 26. 0 - 34.0 pg [facility] MCHC (RBC) [Mass/Vol] 31.6 g/dL Low 32.0 - 36.0 g/dL [facility] MCV (RBC) [Entitic vol] 87 fL 80 - 100 fL [facility] Monocytes (Bld) [#/Vol] 1.18 10*3/uL High [facility] Monocytes/100 WBC (Bld) 8.8 % 2.0 - 10.0 % [facility] Neutrophils (Bld) [#/Vol] 9.13 10*3/uL [facility] Comment on above: Percent differential counts (%) should be interpreted in the context of the absolute cell counts (cells/uL). Neutrophils/100 WBC (Bld) 68.1 % 40.0 - 80.0 % [facility] Nucleated RBC/100 WBC (Bld) [Ratio] 0 % [facility] Platelets (Bld) [#/Vol] 523 10*3/uL High [facility] RBC (Bld) [#/Vol] 2.83 10*6/uL Low [facility] WBC (Bld) [#/Vol] 13.4 10*3/uL [facility] Comprehensive metabolic 2000 panelOrdered By: Nabil Bermudez on 09-14-2024 Albumin BCP dye [Mass/Vol] 3 g/dL Low 3.4 - 5.0 g/dL [facility] ALP [Catalytic activity/Vol] 55 U/L 33 - 120 U/L [facility] ALT With P-5'-P [Catalytic activity/Vol] 21 U/L 10 - 52 U/L [facility] Comment on above: Patients treated wit h Sulfasalazine may generate falsely decreased results for ALT. Anion gap [Moles/Vol] 12 mmol/L 10 - 2 0 mmol/L [facility] AST With P-5'-P [Catalytic activity/Vol] 31 U/L 9 - 39 U/L [facility] Bilirubin [Mass/Vol] 0.3 mg/dL 0.0 - 1 .2 mg/dL [facility] Calcium [Mass/Vol] 8.6 mg/dL 8.6 - 10. 6 mg/dL [facility] Chloride [Moles/Vol] 105 mmol/L 98 - 10 7 mmol/L [facility] CO2 [Moles/Vol] 24 mmol/L 21 - 32 mmol/L [facility] Creatinine [Mass/Vol] 1.64 mg/dL High 0.50 - 1.30 mg/dL [facility] GFR/1.73 sq M.predicted among non-blacks MDRD (S/P/Bld) [Vol rate/Area] 50 mL/min/{1.73_m2} Low - PINF [facility] Comment on above: Calculations of vern mated GFR are performed using the 2020 CKD-EPI Study Refit equation without the race variable for the IDMS-Traceable creatinine methods. https://jasn.asnjournals.org/content//ASN.250 3146577 Glucose [Mass/Vol] 137 mg/dL High 74 - 99 mg/dL [facility] Interpretation and review of laboratory results Abnormal [facility] Potassium [Moles/Vol] 4.3 mmol/L 3.5 - 5.3 mmol/L [facility] Protein [Mass/Vol] 6 g/dL Low 6.4 - 8.2 g/dL [facility] Sodium [Moles/Vol] 137 mmol/L 136 - 145 mmol/L [facility] Urea nitrogen [Mass/Vol] 16 mg/dL 6 - 23 mg/d L [facility] ECG 12-LEADon 09-14-2024 ECG 12-LEAD Ventricular Rate 86 Atrial Rate 86 P-R Interval 134 QRS Duration 98 Q-T Interval 360 QTC Calculation(Bazett) 430 P [place] 56 R [place] 62 T [place] 56 QRS Count 14 Q Onset 222 [...] MERON+probe Ql (Resp) Not detected Not Detected [facility] FLUBV RNA MERON+probe Ql (Resp) Not detected Not Detected [facility] This assay is an in vitro diagnostic multiplex nucleic acid amplification test for the detection and discrimination of Influenza A & B from nasopharyngeal specimens, and has been validated for use at [facility]. Negative results do not preclude Influenza A/B infections, and should not be used as the sole basis for diagnosis, treatment, or other management decisions. If Influenza A/B and RSV PCR results are negative, testing for Parainfluenza virus, Adenovirus and Metapneumovirus is routinely performed for [facility] pediatric oncology and intensive care inpatients, and is available on other patients by placing an add-on request. [facility] HbA1c (Bld) [Mass fraction]o n 09-14-2024 Average glucose Estimated from glycated hemoglobin (Bld) [Mass/Vol] 126 mg/dL Not Established [facility] Interpretation and review of laboratory results Abnormal [facility] Diagnosis of Diabetes-Adults Non-Diabetic: < or = 5.6% Increased risk for developing diabetes: 5.7-6.4% Diagnostic of diabetes: > or = 6.5% [facility] Laboratory - Chemistry and C hemistry - challengeon 09-14-2024 Magnesium [Mass/Vol] 2.14 mg/dL 1.60 - 2.40 mg/dL [facility] Magnesium [Mass/Vol] 2 mg/dL 1.60 - 2.40 mg/dL [facility] Work Phone: Phosphate [Mass/Vol] 3.8 mg/dL 2.5 - 4 .9 mg/dL [facility] Work Phone: Comment on above: The performance andres acteristics of phosphorus testing in heparinized plasma have been validated by the individual laboratory site where testing is performed. Testing on heparinized plasma is not approved by the FDA; however, such approval is not necessary. Laboratory - Drug toxicology on 09-14-2024 Vancomycin [Mass/Vol] 7.3 ug/mL 5.0 - 20.0 ug/mL [facility] Laboratory - Hematology and Cell countson 09-14-2024 HbA1c (Bld) [Mass fraction] 6 % High See comment [facility] - Microbiology an d Antimicrobial susceptibilityon 09-14-2024 SARS-CoV-2 (COVID-19) RNA MERON+probe Ql (Resp) Not detected Not Detected [facility] Lipid 1996 panelon 4 Cholesterol [Mass/Vol] 106 mg/dL 0 - 199 mg/dL [facility] Comment on above: Age Desirable Borderline [...] dosing. Cholesterol in HDL [Mass/Vol] 16.4 mg/dL [facility] Comment on above: Age Very Low Low Normal High 0-19 Y < 35 < 40 40-45 ---- 20-24 Y ---- < 40 >45 ---- >24 Y ---- < 40 40-60 >60 Cholesterol in LDL [Mass/Vol] 63 mg/dL NINF - 99 mg/dL [facility] Comment on above: Near Borderline AGE Desirable Optimal High High Very High 0-19 Y 0 - 109 --- 110-129 >/= 130 ---- 20-24 Y 0 - 119 --- 120-159 >/= 160 ---- >24 Y 0 - 99 100-129 130-159 160-189 >/=190 Cholesterol in VLDL [Mass/Vol] 27 mg/dL 0 - 40 mg/dL [facility] Cholesterol.total/Choles terol in HDL [Mass ratio] 6.5 {ratio} [facility] Comment on above: Ref Values Desirable < 3.4 High Risk > 5.0 Non HDL Cholesterol 90 mg/dL 0 - 149 mg/dL [facility] Comment on above: Age Desirable Borderline High High Very High 0-19 Y 0 - 119 120 - 144 >/= 145 >/= 160 20-24 Y 0 - 149 150 - 189 >/= 190 ---- >24 Y 30 mg/dL above LDL Cholesterol goal Triglyceride [Mass/Vol] 134 mg/dL 0 - 149 mg/d L [facility] Comment on above: Age Desirable Border line [...] Interpretation and review of laboratory results Normal [facility] Natriuretic peptide B (Bld) [Mass/Vol] 68 pg/mL 0 - 99 pg/mL [facility] <100 pg/mL - Heart failure unlikely 100-299 [...] contact their local laboratory for further information. [facility] No Panel Informationon 09-14 Interpretation and review of laboratory results Normal [facility] Extra Tube Hold for add-ons. [facility] Comment on above: Auto resulted. [facility] Extra Tube Hold for add-ons. [facility] Comment on above: Auto resulted. [facility] Interpretation and review of laboratory results Normal [facility] Interpretation and review of laboratory results Normal [facility] Work Phone: [facility] Work Phone: Renal function 2000 panelon 09-14-2024 Albumin BCP dye [Mass/Vol] 2.9 g/dL Low 3.4 - 5.0 g/dL [facility] Anion gap [Moles/Vol] 13 mmol/L 10 - 2 0 mmol/L [facility] Calcium [Mass/Vol] 8.9 mg/dL 8.6 - 10. 6 mg/dL [facility] Chloride [Moles/Vol] 106 mmol/L 98 - 10 7 mmol/L [facility] CO2 [Moles/Vol] 25 mmol/L 21 - 32 mmol/L [facility] Creatinine [Mass/Vol] 1.54 mg/dL High 0.50 - 1.30 mg/dL [facility] GFR/1.73 sq M.predicted among non-blacks MDRD (S/P/Bld) [Vol rate/Area] 54 mL/min/{1.73_m2} Low - PINF [facility] Comment on above: Calculations of vern mated GFR are performed using the 2020 CKD-EPI Study Refit equation without the race variable for the IDMS-Traceable creatinine methods. https://jasn.asnjournals.org/content/early//ASN.932 1432648 Glucose [Mass/Vol] 99 mg/dL 74 - 99 mg/dL [facility] Interpretation and review of laboratory results Abnormal [facility] Phosphate [Mass/Vol] 4.5 mg/dL 2.5 - 4 .9 mg/dL [facility] Comment on above: The performance andres acteristics of phosphorus testing in heparinized plasma have been validated by the individual laboratory site where testing is performed. Testing on heparinized plasma is not approved by the FDA; however, such approval is not necessary. Potassium [Moles/Vol] 4.2 mmol/L 3.5 - 5.3 mmol/L [facility] Sodium [Moles/Vol] 140 mmol/L 136 - 145 mmol/L [facility] Urea nitrogen [Mass/Vol] 14 mg/dL 6 - 23 mg/d L [facility] SARS-CoV-2 (COVID-19) RNA NA A+probe Ql (Resp)on [...] and has been validated for use at [facility]. Negative results do not preclude COVID-19 infections and should not be used as the sole basis for diagnosis, treatment, or other management decisions. [facility] Vancomycin [Mass/Vol]on 08-19 Vancomycin levels can be [...] 30.0-40.0 ug/mL Trough (all ages): 10.0-20.0 ug/mL [facility] XR Chest Single viewon 09-14 1. Right basilar bandlike opacities felt to be atelectatic in nature. Otherwise, no definite focal consolidation or sizable pleural effusion. Signed by: Miah Alves 09/14/2024 8:38 AM Dictation workstation: [id number] WINNIE GUAMAN Interpreted By: Miah Alves, STUDY: XR CHEST 1 VIEW; 09/13/2024 10:22 pm INDICATION: Signs/Symptoms:New fever. COMPARISON: None. ACCESSION NUMBER(S): [id number] ORDERING CLINICIAN: BALDOMERO POWELL FINDINGS: 2 AP [...] INDICATION: Signs/Symptoms:New fever. COMPARISON: None. ACCESSION NUMBER(S): [id number] ORDERING CLINICIAN: BALDOMERO POWELL FINDINGS: 2 AP [...] Miah Alves 09/14/2024 8:38 AM Dictation workstation: [id number] [facility] Work Phone: XR Chest Single viewOrdered By: Miah Alves on 09-14-2024 [facility] Work Phone: Consulton 09-13-2024 Consult [facility] Wound Care CONSULT Note Kevan La [...] to follow Recommend to follow up at [facility] Outpatient wound care center after hospital discharge. Any questions or concerns please secure chat [facility] wound/ostomy. Thank you for the consult! [...] own independent evaluation of this patient. [facility] Consult Pharmacy Managed Vancomycin Dosing Service [...] creatinine, and vancomycin levels interfaced automatically to [employer] and data has been analyzed and interpreted. [...] DATE: 09/13/24 TIME: 11:05 AM Melva Mcdonald [facility] Clinical Pharmacist Available via Secure Chat [facility] ECG 12-LEADon 09-13-2024 ECG 12-LEAD IMPRESSION: Sinus tachycardia Probable left atrial enlargement RSR' in V1 or V2, probably normal variant Electronically Signed On 09-13-2024 00:56:19 EST by Xiomara Kauffman [facility] ED Nursing Noteon 09-13-2024 ED Nursing Note Pt leaving [facility] ED at this time to go to . Belongings with EMS. Normal [facility] ED Nursing Note Report called to RN. RN informed vancomycin was stopped for transport. Normal [facility] ED Nursing Note Life care ETA 8pm Normal [facility] ED Nursing Note [facility] transfer line called - [facility]- 5[address] bed A. Number for report [phone] Normal [facility] ED Nursing Note [facility] Research Nurse called back. Per the Research Physician, the patient does not have to be transferred to [facility]. All that needs to be done is a Biologic Medication needs prescribed, and the patient can be admitted here. The patient is in an outpatient study. If any further questions, we can contact AMAN Hancock @ [phone]. Normal [facility] ED Nursing Note Patient is in a study at [facility]. He has provided a card for his physician and nurse in the study. I contacted the nurse Karissa and left a message @ [phone]. Patient is on the waiting list for and as of 0800 today there are still no rooms available at for this patient. Karissa called back and will contact her MD's over her and will get back with me. Normal [facility] Gas panel (BldV)Ordered By: Bárbara Carty on 09-13-2024 Anion gap 4 (BldV) [Moles/Vol] 10 mmol/L 10.0 - 25.0 mmol/L [facility] Base excess Calc (BldV) [Moles/Vol] 0.1 mmol/L -2.0 - 3.0 mmol/L [facility] Calcium.ionized (BldV) [Moles/Vol] 1.06 mmol/L Low 1.10 - 1.33 mmol/L [facility] Chloride (BldV) [Moles/Vol] 108 mmol/L High 98 - 107 mmol/L [facility] CO2 (BldV) [Partial pressure] 22 mm[Hg] Low [facility] Glucose [Mass/Vol] 149 mg/dL High 74 - 99 mg/dL [facility] HCO3 (Bld) [Moles/Vol] 21.1 mmol/L Low 22.0 - 26.0 mmol/L [facility] Hematocrit Est (Bld) [Volume fraction] 26 % Low 41.0 - 52.0 % [facility] Hemoglobin (Bld) [Mass/Vol] 8.6 g/dL Low 13.5 - 17.5 g/dL [facility] Inhaled oxygen concentration 98 % [facility] Interpretation and review of laboratory results Abnormal [facility] Lactate (BldV) [Moles/Vol] 1.7 mmol/L 0.4 - 2.0 mmol/L [facility] Oxygen (BldV) [Partial pressure] 142 mm[Hg] High [facility] Oxygen saturation in Venous blood 99 % High 45 - 75 % [facility] Oxyhemoglobin (BldV) [Mass fraction] 95.8 % High 45.0 - 75.0 % [facility] pH (BldV) 7.59 [pH] High 7.33 - 7.43 pH [facility] Potassium (BldV) [Moles/Vol] 4.5 mmol/L 3.5 - 5.3 mmol/L [facility] Sodium (BldV) [Moles/Vol] 135 mmol/L Low 136 - 145 mmol/L [facility] No Panel Informationon 09-13 P [place] [address] [facility] [place] Interval [address] [facility] QRS [place] [address] [facility] QRSD [facility]val [facility] QT Interval [address] [facility] QTC Interval 423 ms [facility] T Wave [place] 53 degrees [facility] Sinus tachycardia Probable left atrial enlargement RSR' in V1 or V2, probably normal variant Electronically Signed On 09-13-2024 00:56:19 EST by Xiomara Kauffman CV Xiomara Urias MD - 09/13/2024 IMPRESSION: Sinus tachycardia Probable left atrial enlargement RSR' in V1 or V2, probably normal variant Electronically Signed On 09-13-2024 00:56:19 EST by [facility] a[facility] Coag (PPP) Ordered By: Scarlet Wall on 09-13-2024 aPTT Coag (PPP) [Time] 29 s [facility] INR Coag (PPP) [Relative time] 1.2 {INR} High 0.9 - 1.1 [facility] Interpretation and review of laboratory results Abnormal [facility] PT Coag (PPP) [Time] 13.5 s High [facility] The APTT is no longer used for monitoring Unfractionated Heparin Therapy. For monitoring Heparin Therapy, use the Heparin Assay. [facility] Urinalysis complete W Reflex Culture panel (U)Ordered By: Elham Gomes on 09-13-2024 Appearance (U) Clear Clear [facility] Bilirubin (U) [Mass/Vol] Negative NEGATIVE [facility] Color (U) Light-Yellow Light-Yellow, Yellow, Dark-Yellow [facility] Glucose Auto test strip (U) [Mass/Vol] Normal Normal mg/dL [facility] Interpretation and review of laboratory results Abnormal [facility] Ketones (U) [Mass/Vol] Negative NEGAT SULEMA mg/dL [facility] Leukocyte esterase Auto test strip Ql (U) Negative NEGATIVE [facility] Nitrite Auto test strip Ql (U) Negative NEGATIVE [facility] pH (U) 7.5 [pH] 5.0, 5.5, 6.0, 6.5, 7.0, 7.5, 8.0 [facility] Protein (U) [Mass/Vol] 10 (TRACE) NEGAT SULEMA, 10 (TRACE), 20 (TRACE) mg/dL [facility] RBC (U) [#/Vol] 0.06 (1+) Abnormal NEGATIVE [facility] Specific gravity (U) [Rel density] 1.014 1.005 - 1.035 [facility] Urobilinogen (U) [Mass/Vol] Normal Normal mg/dL [facility] Urinalysis complete W Reflex Culture panel (U)on 09-13-2024 Interpretation and review of laboratory results Abnormal [facility] Mucus Auto (Urine sed) [#/Area] FEW Reference range not established. /LPF [facility] RBC Auto (Urine sed) [#/Area] 6-10 Abnormal NONE, 1-2, 3-5 /HPF [facility] WBC Auto (Urine sed) [#/Area] 1-5 1-5, NONE /HPF [facility] Vital signson 09-13-2024 Heart rate 103 /min bpm [facility] [place] XR Chest Single viewon 09-13 Radiology Study observation (narrative) [facility] Work Phone: BASIC METABOLIC PANELon - Anion gap [Moles/Vol] 12 mmol/L Normal 3-13 [facility] Comment on above: Performed By: #### L [id number], [id number], [id number] ####Librarian: BRIAN NUNEZ ([id number])[facility] ([facility])[address] Calcium [Mass/Vol] 9.4 mg/dL Normal 8.4-10.2 [facility] Comment on above: Performed By: #### L AB15, [id number], [id number] ####Librarian: BRIAN NUNEZ ([id number])[facility] ([facility])[address] Chloride [Moles/Vol] 106 mmol/L Normal 98-[address] [facility] Comment on above: Performed By: #### L AB15, [id number], [id number] ####Librarian: BRIAN NUNEZ ([id number])[facility] ([facility])[address] [place] [address] [place] CO2 [Moles/Vol] 22 mmol/L Normal 22-29 [facility] Comment on above: Performed By: #### L AB15, [id number], [id number] ####Librarian: BRIAN NUNEZ ([id number])[facility] ([facility])[address] [place] [address] [place] Creatinine [Mass/Vol] 1.48 mg/dL High 0.72-1.25 [facility] Comment on above: Performed By: #### Kamila BRANHAM15, [id number], [id number] ####Librarian: BRIAN NUNEZ ([id number])[facility] ([facility] GLOMERULAR FILTRATION RATE ML/MIN/1.73 SQ M.PREDICTED 56.9 mL/min/1.73m*2 Low >60.0 [facility] Comment on above: Result Comment: Calc ulation based on the Chronic Kidney Disease Epidemiology Collaboration (CKD-EPI) equation refit without adjustment for race Performed By: #### Kamila JONES, [id number], [id number] ####Librarian: BRIAN NUNEZ ([id number])[facility] ([facility])[address] Glucose [Mass/Vol] 113 mg/dL High 74-100 [facility] Comment on above: Performed By: #### Kamila JONES, [id number], [id number] ####Librarian: BRIAN NUNEZ ([id number])[facility] ([facility])[address] Potassium [Moles/Vol] 4.9 mmol/L Normal 3.5-5.1 [facility] Comment on above: Result Comment: [facility] potassium values may be up to 0.5 mmol/L lower than serum values. Performed By: #### Kamila JONES, [id number], [id number] ####Librarian: BRIAN NUNEZ ([id number])[facility] (HLAB)[address] [place] [address] [place] Sodium [Moles/Vol] 140 mmol/L Normal 136-145 [facility] Comment on above: Performed By: #### L AB15, [id number], [id number] ####Librarian: BRIAN NUNEZ ([id number])[facility] [place] [address] [place] Urea nitrogen [Mass/Vol] 18 mg/dL Normal 9-23 [facility] Comment on above: Performed By: #### L AB15, [id number], [id number] ####Librarian: BRIAN NUNEZ ([id number])[facility] ([facility])[address] [place] [address] BLOOD CULTUREon 09-12-2024 Bacteria identified Cx Nom (Bld) BLOOD CULTURE Reference No growth at 5 days ORDER COMMENTS: Blood Collection Site: Left Arm [ S = SUSCEPTIBLE R = RESISTANT I = INTERMEDIATE S-DD = Susceptible-dose dependent NS = Non-susceptible NO = No Interpretation ] Normal [facility] Comment on above: Performed By: #### L [id number], [id number] #### Librarian: JAZLYN JIMENEZ ([id number]) [facility] ([facility]) [address] [place] [address] Bacteria identified Cx Nom (Bld) BLOOD CULTURE Reference No growth at 5 days ORDER COMMENTS: Blood Collection Site: Right Arm [ S = SUSCEPTIBLE R = RESISTANT I = INTERMEDIATE S-DD = Susceptible-dose dependent NS = Non-susceptible NO = No Interpretation ] Normal [facility] Comment on above: Performed By: #### L [id number], [id number] #### Librarian: JAZLYN JIMENEZ ([id number]) [facility] ([facility] [address] [place] [address] Basic metabolic 1998 panelon 09-12-2024 Anion gap [Moles/Vol] 12 mmol/L 3 - 13 mmol/L [facility] Calcium [Mass/Vol] 9.4 mg/dL 8.4 - 10. 2 mg/dL [facility] Chloride [Moles/Vol] 106 mmol/L 98 - 10 7 mmol/L [facility] CO2 [Moles/Vol] 22 mmol/L 22 - 29 mmol/L [facility] Creatinine [Mass/Vol] 1.48 mg/dL High 0.72 - 1.25 mg/dL [facility] GFR/1.73 sq M.predicted (S/P/Bld) [Vol rate/Area] 56.9 mL/min Low - PINF [facility] Comment on above: Calculation based on the Chronic Kidney Disease Epidemiology Collaboration (CKD-EPI) equation refit without adjustment for race Glucose [Mass/Vol] 113 mg/dL High 74 - 100 mg/dL [facility] Interpretation and review of laboratory results Abnormal [facility] Potassium [Moles/Vol] 4.9 mmol/L 3.5 - 5.1 mmol/L [facility] Comment on above: Plasma potassium jeri ues may be up to 0.5 mmol/L lower than serum values. Sodium [Moles/Vol] 140 mmol/L 136 - 145 mmol/L [facility] Urea nitrogen [Mass/Vol] 18 mg/dL 9 - 23 mg/d L [facility] CBC W Auto Differential pane l (Bld)on 09-12-2024 Basophils (Bld) [#/Vol] 0 10*3/uL 0.0 - 0.2 10*3/uL [facility] Basophils/100 WBC (Bld) 0.2 % 0.0 - 2.0 % [facility] Eosinophils (Bld) [#/Vol] 0.4 10*3/uL 0.0 - 0.5 10*3/uL [facility] Eosinophils/100 WBC (Bld) 2 % 0.0 - 6.0 % [facility] Erythrocyte distribution width (RBC) [Ratio] 17 % High 11.5 - 15.0 % [facility] Hematocrit (Bld) [Volume fraction] 28.1 % Low 40.0 - 52.0 % [facility] Hemoglobin (Bld) [Mass/Vol] 8.9 g/dL Low 13.0 - 18.0 g/dL [facility] Immature granulocytes (Bld) [#/Vol] 0.1 10*3/uL High NINF - 0.1 10*3/uL [facility] Immature granulocytes/100 WBC (Bld) 0.7 % 0.0 - 2.0 % [facility] Interpretation and review of laboratory results Abnormal [facility] Lymphocytes (Bld) [#/Vol] 2.1 10*3/uL 1.0 - 4.3 10*3/uL [facility] Lymphocytes/100 WBC (Bld) 12 % Low 15.0 - 45.0 % [facility] MCH (RBC) [Entitic mass] 27.9 pg 26. 0 - 34.0 pg [facility] MCHC (RBC) [Mass/Vol] 31.7 % 30.5 - 36.0 % [facility] MCV (RBC) [Entitic vol] 88.1 fL 77.0 - 99.[address] [facility] Monocytes (Bld) [#/Vol] 1.5 10*3/uL High 0.0 - 0.9 10*3/uL [facility] Monocytes/100 WBC (Bld) 8.1 % 5.0 - 13.0 % [facility] Neutrophils (Bld) [#/Vol] 13.7 10*3/uL High 1.8 - 7.5 10*3/uL [facility] Neutrophils/100 WBC (Bld) 77 % 38.0 - 82.0 % [facility] Nucleated RBC/100 WBC (Bld) [Ratio] 0 % [facility] Platelet mean volume (Bld) [Entitic vol] 8.6 fL Low 9.0 - 12.7 fL [facility] Platelets (Bld) [#/Vol] 568 10*3/uL High 140 - 440 10*3/uL [facility] RBC (Bld) [#/Vol] 3.19 10*6/uL Low 4.40 - 5.9 0 10*6/uL [facility] WBC (Bld) [#/Vol] 17.8 10*3/uL High 3.6 - 10.7 10*3/uL [facility] CBC WITH AUTO DIFFERENTIALon 09-12-2024 Basophils (Bld) [#/Vol] 0.0 10*3/uL Normal 0.0-0.2 [facility] Comment on above: Performed By: #### L [id number] ####Librarian: BRIAN NUNEZ ([id number])[facility] ([facility])[address] [place] [address] Basophils/100 WBC (Bld) 0.2 % Normal 0.0-2.0 [facility] Comment on above: Performed By: #### L [id number] ####Librarian: BRIAN NUNEZ ([id number])[facility] ([facility])[address] [place] [address] Eosinophils (Bld) [#/Vol] 0.4 10*3/uL Normal 0.0-0.5 [facility] Comment on above: Performed By: #### L [id number] ####Librarian: BRIAN ALVAREZBharathiFANNY ([id number])[facility] ([facility])[address] Eosinophils/100 WBC (Bld) 2.0 % Normal 0.0-6.0 [facility] Comment on above: Performed By: #### L [id number] ####Librarian: BRIAN GAYFANNY ([id number])[facility] ([facility])[address] Erythrocyte distribution width (RBC) [Ratio] 17.0 % High 11.5-15.0 [facility] Comment on above: Performed By: #### L [id number] ####Librarian: BRIAN ALVAREZCHIKI ([id number])[facility] ([facility])[address] [place] [address] Hematocrit (Bld) [Volume fraction] 28.1 % Low 40.0-52.0 [facility] Comment on above: Performed By: #### L [id number] ####Librarian: BRIAN ENRIQUE ([id number])[facility] ([facility])[address] Hemoglobin (Bld) [Mass/Vol] 8.9 g/dL Low 13.0-18.0 [facility] Comment on above: Performed By: #### L [id number] ####Librarian: BRIAN GAYFANNY ([id number])[facility] ([facility])[address] IMMATURE GRANS % 0.7 % Normal 0.0-2.0 [facility] Comment on above: Performed By: #### L [id number] ####Librarian: BRIAN GAYFANNY ([id number])[facility] ([facility])[address] IMMATURE GRANS ABSOLUTE 0.1 10*3/uL High <0.1 [facility] Comment on above: Performed By: #### L [id number] ####Librarian: BRIAN ALVAREZBharathiFANNY ([id number])[facility] ([facility])[address] Lymphocytes (Bld) [#/Vol] 2.1 10*3/uL Normal 1.0-4.3 [facility] Comment on above: Performed By: #### L [id number] ####Librarian: BRIAN ENRIQUE ([id number])[facility] ([facility])[address] Lymphocytes/100 WBC (Bld) 12.0 % Low 15.0-45.0 [facility] Comment on above: Performed By: #### L [id number] ####Librarian: BRIAN ALVAREZCHIKI ([id number])[facility] ([facility])[address] [place] [address] MCH (RBC) [Entitic mass] 27.9 pg Normal 26.0-34.0 [facility] Comment on above: Performed By: #### L [id number] ####Librarian: BRIAN ENRIQUE ([id number])[facility] ([facility])[address] MCHC 31.7 % Normal 30.5-36.0 [facility] Comment on above: Performed By: #### L [id number] ####Librarian: BRIAN GAYFANNY ([id number])[facility] ([facility])[address] [place] [address] MCV (RBC) [Entitic vol] 88.1 fL Normal 77.0-99.0 [facility] Comment on above: Performed By: #### L [id number] ####Librarian: BRIAN GAYFANNY ([id number])[facility] ([facility])[address] Monocytes (Bld) [#/Vol] 1.5 10*3/uL High 0.0-0.9 [facility] Comment on above: Performed By: #### L [id number] ####Librarian: BRIAN NUNEZ ([id number])[facility] ([facility])[address] Monocytes/100 WBC (Bld) 8.1 % Normal 5.0-13.0 [facility] Comment on above: Performed By: #### L [id number] ####Librarian: BRIAN NUNEZ ([id number])[facility] ([facility])[address] NEUTROPHILS ABSOLUTE 13.7 10*3/uL High 1.8-7.5 [facility] Comment on above: Performed By: #### L [id number] ####Librarian: BRIAN NUNEZ ([id number])[facility] ([facility])[address] Neutrophils/100 WBC (Bld) 77.0 % Normal 38.0-82.0 [facility] Comment on above: Performed By: #### L [id number] ####Librarian: BRIAN NUNEZ ([id number])[facility] ([facility])[address] NRBC 0.0 /100 WBCs Normal 0.0-2.0 [facility] Comment on above: Performed By: #### L [id number] ####Librarian: BRIAN NUNEZ ([id number])[facility] ([facility])[address] Platelet mean volume (Bld) [Entitic vol] 8.6 fL Low 9.0-12.7 [facility] Comment on above: Performed By: #### L [id number] ####Librarian: BRIAN NUNEZ ([id number])[facility] ([facility])[address] [place] [address] [place] Platelets (Bld) [#/Vol] 568 10*3/uL High 140-440 [facility] Comment on above: Performed By: #### L [id number] ####Librarian: BRIAN NUNEZ ([id number])[facility]ITAL[facility] BISWAS (SBHLAB)[address] RBC (Bld) [#/Vol] 3.19 10*6/uL Low 4.40-5.90 [facility] Comment on above: Performed By: #### L [id number] ####Librarian: BRIAN NUNEZ ([id number])[facility]PITALJulisa [facility] (SBHLAB)[address] WBC (Bld) [#/Vol] 17.8 10*3/uL High 3.6-10.7 [facility] Comment on above: Performed By: #### L [id number] ####Librarian: BRIAN NUNEZ ([id number])[facility]ITALJulisa [facility] (SBHLAB)[address] [place] [address] CT ABDOMEN PELVIS W CONTRAST on 09-12-2024 [...] abscess or signs of necrotizing infection. Normal [facility] CT Abdomen and Pelvis W cont [...] DO Electronically Signed Date/Time: 09/12/2024 9:48 PM [facility] Patient Name: KEVAN LA : [...] the left femur. [facility] Raisa Eaton DO - 09/12/2024 [facility] Name: [facility]EVAN LA : 1975 [id number] Exam Date/Time: 09/12/2024 21:13 Procedure: CT ABDOMEN [...] Electronically Signed Date/Time: 09/12/2024 9:48 PM EST [facility] Radiology Study observation (narrative) [facility] alth CT Abdomen and Pelvis W cont rast IVOrdered By: Raisa Eaton on 09-12-2024 [facility] Work Phone: CULTURE ANAEROBICon 09-12-20 24 CULTURE ANAEROBIC ANAEROBIC CULTURE (A) Reference BACTEROIDES FRAGILIS GROUP Moderate Bacteroides fragilis group (A) [ S = SUSCEPTIBLE R = RESISTANT I = INTERMEDIATE S-DD = Susceptible-dose dependent NS = Non-susceptible NO = No Interpretation ] Normal [facility] Comment on above: Performed By: #### L [id number], [id number] #### Librarian: JAZLYN JIMENEZ ([id number]) [facility] ([facility]) [address] [place] [address] CULTURE, AEROBIC BACTERIA WI TH GRAM STAINon [...] Non-susceptible NO = No Interpretation ] Normal [facility] Comment on above: Performed By: #### L [id number], [id number] #### Librarian: JAZLYN JIMENEZ ([id number]) [facility] ([facility]) [address] ED Provider Noteon ED Provider Note [facility] ED EMERGENCY DEPARTMENT ENCOUNTER Pt Name: [...] Procedure Abnormality Status --------- ------ Culture, Aerobic Bacteri...[[id number] ] In process Anaerobic culture[[id number]] In process Please view results for these [...] mg IntraVENou (more content not included)... Normal [facility] HIGH SENSITIVITY TROPONIN, S ERIAL BASELINEon 09-12-2024 TROPONIN HIGH SENSITIVITY BASELINE 4 ng/L Normal <=35 [facility] Comment on above: Performed By: #### L [id number], [id number], [id number] ####Librarian: BRIAN NUNEZ ([id number])[facility] (SBHLAB)[address] LACTIC ACID WITH REFLEXon Lactate [Moles/Vol] 2.0 mmol/L Normal 0.5-2.2 [facility] Comment on above: Performed By: #### L [id number] ####Librarian: BRIAN NUNEZ ([id number])[facility] (SBHLAB)[address] Laboratory - Chemistry and C hemistry - challengeon 09-12-2024 Lactate [Moles/Vol] 2 mmol/L 0.5 - 2. 2 mmol/L [facility] NT PRO BNPon 09-12-2024 Natriuretic peptide B (Bld) [Mass/Vol] 589 pg/mL High <125 [facility] Comment on above: Performed By: #### L [id number], [id number], [id number] ####Librarian: BRIAN NUNEZ ([id number])[facility] (SBHLAB)[address] [place] [address] Natriuretic peptide B [Mass/ Vol]on 09-12-2024 Interpretation and review of laboratory results Abnormal [facility] Natriuretic peptide B (Bld) [Mass/Vol] 589 pg/mL High NINF - 125 pg/mL [facility] No Panel Informationon 09-12 Interpretation and review of laboratory results Normal [facility] Troponin HS, Serial Baseline 4 ng/L NINF - 35 ng/L [facility] Interpretation and review of laboratory results Normal [facility] Progress Noteon 09-12-2024 Progress Note Culture reviewed. Awaiting sensitivity results. Patient was seen at [facility] given IV antibiotics broad-spectrum coverage and transferred to hospital for further management Normal [facility] XR Chest Single viewon 09-12 1. No acute findings. Report Dictated on Electronically Signed By: Elias Hutson MD Electronically Signed Date/Time: 09/12/2024 8:28 PM [facility] Fromography SYSTEM Patient Name: KEVAN LA : 1975 [...] or apparent pneumothorax. Bony thorax grossly unremarkable. [facility] Elias Hutson MD - 09/12/2024 Patient [...] Electronically Signed Date/Time: 09/12/2024 8:28 PM EST [facility] Radiology Study observation (narrative) [facility] alth XR Chest Single viewOrdered By: Elias Hutson on 09-12-[address] [facility] [place] Work Phone: ECG 12-LEADon 02-29-2024 ECG 12-LEAD Ventricular Rate 60 Atrial Rate 60 P-R Interval 146 QRS Duration 92 Q-T Interval 410 QTC Calculation(Bazett) 410 P [place] 55 R [place] 41 T [place] 55 QRS Count 10 Q Onset 212 P Onset 139 P Offset 195 T Offset 417 QTC Fredericia 410 Diagnosis Normal sinus rhythm Normal ECG When compared with ECG of 23-NOV-2023 11:14, No significant change was found Confirmed by Eric Mccall ([id number]) on 03/01/2024 4:34:58 PM Normal [facility] ECG 12 lead (Ancillary Perfo rmed)Ordered By: Beto Casas on 11-24-2023 Atrial Rate 58 BPM [facility] Work Phone: [phone] P [place] 59 degrees [facility] Work Phone: [phone] P Offset 198 ms [facility] Work Phone: [phone] P Onset 141 ms [facility] Work Phone: [phone] [place] Interval 150 ms [facility] Work Phone: [phone] Q Onset 216 ms [facility] Work Phone: [phone] QRS Count 10 beats [facility] Work Phone: [phone] QRS Duration 98 ms [facility] Work Phone: [phone] QT Interval 402 ms [facility] Work Phone: [phone] QTC Calculation(Bazett) 394 ms U [facility] Work Phone: [phone] QTC Fredericia 397 ms [facility] Work Phone: [phone] R [place] 54 degrees [facility] Work Phone: [phone] T [place] 65 degrees [facility] Work Phone: [phone] T Offset 417 ms [facility] Work Phone: [phone] Ventricular Rate 58 BPM [facility] Work Phone: [phone] [facility] Work Phone: [phone] ECG 12 lead (Ancillary Perfo rmed)on 11-24-2023 Sinus bradycardia Otherwise normal ECG No previous ECGs available Confirmed by Beto Casas ([id number]) on 11/24/2023 1:09:15 PM Beto William MD - 11/24/2023 Sinus bradycardia Otherwise normal ECG No previous ECGs available Confirmed by Beto Casas ([id number]) on 11/24/2023 1:09:15 PM [facility] Work Phone: QUANTIFERON - PLUS RHODES TUBE on 04-10-2023 Gamma interferon background IA Qn (Bld) 0.02 IU/mL [facility] [place] QUANTIFERON - PLUS GREEN TUB Yunior 04-10-2023 TB1 Antigen Result 0.05 IU/mL [facility] QUANTIFERON - PLUS PURPLE TU BEon 04-10-2023 M. tuberculosis stim IFN-g by CD4+ CD8+ T-cells corrected for background Qn (Bld) 0.01 IU/mL [facility] M. tuberculosis stim IFN-g by CD4+ T-cells corrected for background Qn (Bld) 0.03 [IU]/mL IU/mL [facility] M. tuberculosis tuberculin stim IFN-g Ql (Bld) Negative Negative [facility] Mitogen Result IU/mL [facility] Mitogen stimulated gamma interferon corrected for background Qn (Bld) IU/mL [facility] Interferon gamma release is measured for specimens [...] NTM (M. kansasii, M. szulgai,or M. marinum). [facility] QUANTIFERON - PLUS YELLOW TU BEon 04-10-2023 TB2 Antigen Value 0.03 IU/mL [facility] Bilirubin.indirect [Mass/Vol ]on 04-08-2023 Bilirubin.conjugated [Mass/Vol] 0.0 mg/dL 0.0 - 0.3 mg/dL [facility] Interpretation and review of laboratory results Normal [facility] CBC W Auto Differential pane l (Bld)Ordered By: Smitha Mcknight on 04-08-2023 Basophils (Bld) [#/Vol] 0.1 10*3/uL 0.0 - 0.2 10*3/uL [facility] Basophils/100 WBC (Bld) 0.7 % 0.0 - 2.0 % [facility] Eosinophils (Bld) [#/Vol] 0.3 10*3/uL 0.0 - 0.5 10*3/uL [facility] Eosinophils/100 WBC (Bld) 2.6 % 1.0 - 6.0 % [facility] Erythrocyte distribution width (RBC) [Ratio] 15.0 % High 11.5 - 14.5 % [facility] Hematocrit (Bld) [Volume fraction] 38.9 % Low 40.0 - 52.0 % [facility] Hemoglobin (Bld) [Mass/Vol] 12.8 g/dL Low 13.0 - 18.0 g/dL [facility] Immature granulocytes (Bld) [#/Vol] 0.0 10*3/uL NINF - 0.0 10*3/uL [facility] Immature granulocytes/100 WBC (Bld) 0.3 % High NINF - 0.0 % [facility] Interpretation and review of laboratory results Abnormal [facility] Lymphocytes (Bld) [#/Vol] 3.0 10*3/uL 1.0 - 4.3 10*3/uL [facility] Lymphocytes/100 WBC (Bld) 23.6 % 20.0 - 40.0 % [facility] MCH (RBC) [Entitic mass] 28.7 pg 26. 0 - 34.0 pg [facility] MCHC (RBC) [Mass/Vol] 32.9 % 32.0 - 36.0 % [facility] MCV (RBC) [Entitic vol] 87.2 fL 80.0 - 98.0 fL [facility] Monocytes (Bld) [#/Vol] 1.2 10*3/uL High 0.0 - 0.8 10*3/uL [facility] Monocytes/100 WBC (Bld) 9.1 % 2.0 - 10.0 % [facility] Neutrophils (Bld) [#/Vol] 8.1 10*3/uL High 1.8 - 7.0 10*3/uL [facility] Neutrophils/100 WBC (Bld) 63.7 % 40.0 - 80.0 % [facility] Platelet mean volume (Bld) [Entitic vol] 8.7 fL 7.4 - 12.4 fL [facility] Comment on above: MPV is a calculated measurement using platelet volume ratio Platelets (Bld) [#/Vol] 415 10*3/uL 140 - 440 10*3/uL [facility] RBC (Bld) [#/Vol] 4.46 10*6/uL 4.40 - 5.9 0 10*6/uL [facility] WBC (Bld) [#/Vol] 12.7 10*3/uL High 3.6 - 10.7 10*3/uL [facility] Comprehensive metabolic 1998 panelon 04-08-2023 Albumin [Mass/Vol] 3.9 g/dL 3.5 - 5.0 g/dL [facility] ALP [Catalytic activity/Vol] 95 U/L 38 - 126 U/L [facility] ALT [Catalytic activity/Vol] 16 U/L 0 - 49 U/L [facility] Anion gap [Moles/Vol] 5 mmol/L 3 - 13 mmol/L [facility] AST [Catalytic activity/Vol] 24 U/L 15 - 46 U/L [facility] Bilirubin [Mass/Vol] 0.3 mg/dL 0.2 - 1 .3 mg/dL [facility] Calcium [Mass/Vol] 8.8 mg/dL 8.4 - 10. 4 mg/dL [facility] Chloride [Moles/Vol] 108 mmol/L High 98 - 10 7 mmol/L [facility] CO2 [Moles/Vol] 28 mmol/L 22 - 30 mmol/L [facility] Creatinine [Mass/Vol] 1.20 mg/dL 0.66 - 1.25 mg/dL [facility] GFR/1.73 sq M.predicted MDRD (S/P/Bld) [Vol rate/Area] 74.1 mL/min/{1.73_m2} - PINF [facility] Comment on above: Calculation based on the Chronic Kidney Disease Epidemiology Collaboration (CKD-EPI) equation refit without adjustment for race Glucose [Mass/Vol] 110 mg/dL High 70 - 100 mg/dL [facility] [place] Interpretation and review of laboratory results Abnormal [facility] Potassium [Moles/Vol] 4.3 mmol/L 3.5 - 5.1 mmol/L [facility] Protein [Mass/Vol] 8.3 g/dL High 6.3 - 8.2 g/dL [facility] Sodium [Moles/Vol] 140 mmol/L 135 - 145 mmol/L [facility] Urea nitrogen [Mass/Vol] 14 mg/dL 9 - 20 mg/d L [facility] [place] No Panel Informationon 04-08 [facility] Vital Signs Date Time Vital Sign Value Performing Clinician Facility 03-24-2025 11:14-0400 Diastolic blood pressure 60 mm[Hg] Kris RUIZ-C Work Phone: [facility] 03-24-2025 11:14-0400 Heart rate 68 /min Kris RUIZ-C Work Phone: [facility] 03-24-2025 11:14-0400 Systolic blood pressure 101 mm[Hg] Kris Ren PA-C Work Phone: [facility] 03-10-2025 14:54-0400 Body temperature 96.8 [degF] Astrid Hawley [employer] Work Phone: [facility] 03-10-2025 14:54-0400 Diastolic blood pressure 51 mm[Hg] Astrid Hawley [employer] Work Phone: [facility] 03-10-2025 14:54-0400 Heart rate 47 /min Astrid Hawley [employer] Work Phone: [facility] 03-10-2025 14:54-0400 Respiratory rate 14 /min Astrid Hawley [employer] Work Phone: [facility] 03-10-2025 14:54-0400 SaO2% (BldA) [Mass fraction] 100 % Astrid Hawley [employer] Work Phone: [facility] 03-10-2025 14:54-0400 Systolic blood pressure 93 mm[Hg] Astrid Hawley [employer] Work Phone: [facility] 03-03-2025 15:38-0400 Diastolic blood pressure 55 mm[Hg] Dean Jalloh MD Work Phone: [facility] 03-03-2025 15:38-0400 Heart rate 55 /min Dean Jalloh MD Work Phone: [facility] 03-03-2025 15:38-0400 Respiratory rate 16 /min Dean Jalloh MD Work Phone: [facility] 03-03-2025 15:38-0400 SaO2% (BldA) [Mass fraction] 98 % Dean Jalloh MD Work Phone: [facility] 03-03-2025 15:38-0400 Systolic blood pressure 98 mm[Hg] Dean Jalloh MD Work Phone: [facility] 12-24-2024 09:31-0400 Body temperature 98.01 [degF] Mejgon Martina DO Work Phone: [facility] [place] 12-24-2024 09:31-0400 Diastolic blood pressure 45 mm[Hg] Mejgon Martina DO Work Phone: [facility] [place] 12-24-2024 09:31-0400 Heart rate 83 /min Mejgon Martina DO Work Phone: [facility] [place] 12-24-2024 09:31-0400 Respiratory rate 15 /min Mejgon Martina DO Work Phone: [facility] [place] 12-24-2024 09:31-0400 SaO2% (BldA) [Mass fraction] 97 % Mejgon Martina DO Work Phone: [facility] [place] 12-24-2024 09:31-0400 Systolic blood pressure 95 mm[Hg] Mejgon Martina DO Work Phone: [facility] [place] 12-23-2024 19:23-0400 Body height 200.7 cm Levi Mack DO Work Phone: [facility] [place] 12-23-2024 19:23-0400 Body mass index (BMI) [Ratio] 22.34 kg/m2 Levi Mack DO Work Phone: [facility] [place] 12-23-2024 19:23-0400 Body weight 90 kg Levi Mack DO Work Phone: [facility] [place] 12-20-2024 10:55-0400 Body height 196.7 cm Sreedhar Jiang MD Work Phone: [facility] 12-20-2024 10:55-0400 Body mass index (BMI) [Ratio] 23.31 kg/m2 Sreedhar Jiang MD Work Phone: [facility] 12-20-2024 10:55-0400 Body temperature 97.9 [degF] Sreedhar Jiang MD Work Phone: [facility] 12-20-2024 10:55-0400 Body weight 90.2 kg Sreedhar Jiang MD Work Phone: [facility] 12-20-2024 10:55-0400 Diastolic blood pressure 57 mm[Hg] Sreedhar Jiang MD Work Phone: [facility] 12-20-2024 10:55-0400 Heart rate 74 /min Sreedhar Jiang MD Work Phone: [facility] 12-20-2024 10:55-0400 Respiratory rate 16 /min Sreedhar Jiang MD Work Phone: [facility] 12-20-2024 10:55-0400 SaO2% (BldA) [Mass fraction] 96 % Sreedhar Jiang MD Work Phone: [facility] 12-20-2024 10:55-0400 Systolic blood pressure 99 mm[Hg] Sreedhar Jiang MD Work Phone: [facility] 12-19-2024 07:29-0400 Body temperature 97 [degF] Mine Nunez MD Work Phone: [facility] 12-19-2024 07:29-0400 Diastolic blood pressure 62 mm[Hg] Mine Nunez MD Work Phone: [facility] 12-19-2024 07:29-0400 Heart rate 83 /min Mine Nunez MD Work Phone: [facility] 12-19-2024 07:29-0400 Respiratory rate 16 /min Mine Nunez MD Work Phone: [facility] 12-19-2024 07:29-0400 SaO2% (BldA) [Mass fraction] 96 % Mine Nunez MD Work Phone: [facility] 12-19-2024 07:29-0400 Systolic blood pressure 102 mm[Hg] Mine Nunez MD Work Phone: [facility] 12-07-2024 16:58-0400 Body height 200.6 cm Mine Nunez MD Work Phone: [facility] 12-07-2024 16:58-0400 Body mass index (BMI) [Ratio] 22.22 kg/m2 Mine Nunez MD Work Phone: [facility] 12-07-2024 16:58-0400 Body weight 89.4 kg Mine Nunez MD Work Phone: [facility] 12-07-2024 13:22-0400 Body temperature 98.71 [degF] Fer Hollins MD Work Phone: [facility] 12-07-2024 13:22-0400 Diastolic blood pressure 57 mm[Hg] Fer Hollins MD Work Phone: [facility] 12-07-2024 13:22-0400 Heart rate 60 /min Fer Hollins MD Work Phone: [facility] 12-07-2024 13:22-0400 Respiratory rate 16 /min Fer Hollins MD Work Phone: [facility] [place] 12-07-2024 13:22-0400 SaO2% (BldA) [Mass fraction] 100 % Fer Hollins MD Work Phone: [facility] [place] 12-07-2024 13:22-0400 Systolic blood pressure 89 mm[Hg] Fer Hollins MD Work Phone: [facility] [place] 12-06-2024 11:09-0400 Body height 200.7 cm Fer Hollins MD Work Phone: [facility] [place] 12-06-2024 11:09-0400 Body mass index (BMI) [Ratio] 22.19 kg/m2 Fer Hollins MD Work Phone: [facility] [place] 12-06-2024 11:09-0400 Body weight 89.36 kg Fer Hollins MD Work Phone: [facility] [place] 11-27-2024 13:43-0400 Body temperature 97.7 [degF] Baldomero Powell MD Work Phone: [facility] 11-27-2024 13:43-0400 Diastolic blood pressure 61 mm[Hg] Baldomero Powell MD Work Phone: [facility] 11-27-2024 13:43-0400 Heart rate 74 /min Baldomero Powell MD Work Phone: [facility] 11-27-2024 13:43-0400 SaO2% (BldA) [Mass fraction] 98 % Baldomero Powell MD Work Phone: [facility] 11-27-2024 13:43-0400 Systolic blood pressure 105 mm[Hg] Baldomero Powell MD Work Phone: [facility] 11-27-2024 05:19-0400 Respiratory rate 17 /min Baldomero Powell MD Work Phone: [facility] 11-13-2024 17:26-0500 Body temperature 37 Baldomero Powell MD Work Phone: [facility] 11-11-2024 09:42-0500 Body mass index (BMI) [Ratio] 25.93 kg/m2 Baldomero Powell MD Work Phone: [facility] 11-11-2024 09:42-0500 Body weight 104.33 kg Baldomero Powell MD Work Phone: [facility] 11-10-2024 04:05-0500 Body height 200.6 cm Baldomero Powell MD Work Phone: [facility] 11-09-2024 17:02-0500 Body temperature 98.01 [degF] Fer Kennedy MD Work Phone: [facility] 11-09-2024 17:02-0500 Diastolic blood pressure 55 mm[Hg] Fer Kennedy MD Work Phone: [facility] 11-09-2024 17:02-0500 Heart rate 63 /min Fer Kennedy MD Work Phone: [facility] [place] 11-09-2024 17:02-0500 Respiratory rate 16 /min Fer Kennedy MD Work Phone: [facility] 11-09-2024 17:02-0500 SaO2% (BldA) [Mass fraction] 97 % Fer Kennedy MD Work Phone: [facility] 11-09-2024 17:02-0500 Systolic blood pressure 99 mm[Hg] Fer Kennedy MD Work Phone: [facility] 11-09-2024 08:12-0500 Body height 200.7 cm Fer Kennedy MD Work Phone: [facility] 11-09-2024 08:12-0500 Body mass index (BMI) [Ratio] 21.52 kg/m2 Fer Kennedy MD Work Phone: [facility] 11-09-2024 08:12-0500 Body weight 86.64 kg Fer Kennedy MD Work Phone: [facility] Comment on above: pt states [facility] this was his current weight 10-23-2024 03:44-0500 Body temperature 98.2 [degF] Kishore Gutierrez MD Work Phone: [facility] 10-23-2024 03:44-0500 Diastolic blood pressure 54 mm[Hg] Kishore Gutierrez MD Work Phone: [facility] 10-23-2024 03:44-0500 Heart rate 74 /min Kishore Gutierrez MD Work Phone: [facility] 10-23-2024 03:44-0500 Respiratory rate 17 /min Kishore Gutierrez MD Work Phone: [facility] 10-23-2024 03:44-0500 SaO2% (BldA) [Mass fraction] 98 % Kishore Gutierrez MD Work Phone: [facility] 10-23-2024 03:44-0500 Systolic blood pressure 103 mm[Hg] Kishore Gutierrez MD Work Phone: [facility] 10-13-2024 12:12-0500 Body temperature 37 Kishore Gutierrez MD Work Phone: [facility] 10-13-2024 12:08-0500 Body temperature 37 Kishore Gutierrez MD Work Phone: [facility] 10-13-2024 12:08-0500 SaO2% (BldA) [Mass fraction] 95 % Kishore Gutierrez MD Work Phone: [facility] 10-11-2024 10:15-0500 Body height 200.7 cm Kishore Gutierrez MD Work Phone: [facility] 10-11-2024 10:15-0500 Body mass index (BMI) [Ratio] 25.01 kg/m2 Kishore Gutierrez MD Work Phone: [facility] 10-11-2024 10:15-0500 Body weight 100.7 kg Kishore Gutierrez MD Work Phone: [facility] 10-10-2024 16:24-0500 Body temperature 37 Kishore Gutierrez MD Work Phone: [facility] 09-17-2024 08:06-0500 Body temperature 97 [degF] Ankit Nino MD Work Phone: [facility] 09-17-2024 08:06-0500 Diastolic blood pressure 56 mm[Hg] Ankit Nino MD Work Phone: [facility] 09-17-2024 08:06-0500 Heart rate 66 /min Ankit Nino MD Work Phone: [facility] 09-17-2024 08:06-0500 Respiratory rate 17 /min Ankit Nino MD Work Phone: [facility] 09-17-2024 08:06-0500 SaO2% (BldA) [Mass fraction] 96 % Ankit Nino MD Work Phone: [facility] 09-17-2024 08:06-0500 Systolic blood pressure 103 mm[Hg] Ankit Nino MD Work Phone: [facility] 09-13-2024 23:47-0500 Body temperature 37 Ankit Nino MD Work Phone: [facility] 09-13-2024 21:41-0500 Body height 200.7 cm Ankit Nino MD Work Phone: [facility] 09-13-2024 21:41-0500 Body mass index (BMI) [Ratio] 25.02 kg/m2 Ankit Nino MD Work Phone: [facility] 09-13-2024 21:41-0500 Body weight 100.8 kg Ankit Nino MD Work Phone: [facility] 09-13-2024 19:32-0500 Body temperature 100.6 [degF] Xiomara Kauffman MD Work Phone: [facility] [place] 09-13-2024 19:32-0500 Diastolic blood pressure 63 mm[Hg] Xiomara Kauffman MD Work Phone: [facility] [place] 09-13-2024 19:32-0500 Heart rate 90 /min Xiomara Kauffman MD Work Phone: [facility] [place] 09-13-2024 19:32-0500 Respiratory rate 16 /min Xiomara Kauffman MD Work Phone: [facility] [place] 09-13-2024 19:32-0500 SaO2% (BldA) [Mass fraction] 94 % Xiomara Kauffman MD Work Phone: [facility] [place] 09-13-2024 19:32-0500 Systolic blood pressure 95 mm[Hg] Xiomara Kauffman MD Work Phone: [facility] [place] 09-13-2024 11:29-0500 Body height 200.7 cm Xiomara Kauffman MD Work Phone: [facility] [place] 09-13-2024 11:29-0500 Body mass index (BMI) [Ratio] 25.91 kg/m2 Xiomara Kauffman MD Work Phone: [facility] [place] 09-13-2024 11:29-0500 Body weight 104.33 kg Xiomara Kauffman MD Work Phone: [facility] [place] Encounters Encounter Date Encounter Type Care Provider Facility Start: 04-24-2025 ambulatory Julio Harris ity:[facility] Start: 04-16-[address] [facility] Start: 04-07-2025 End: 04-07-2025 Office outpatient visit 25 minutes Astrid Hawley [employer] Work Phone: [facility] Comment on above: Constipation due to pain medication therapy (Primary Dx); Other insomnia; Cancer associated pain Start: 04-07-2025 End: 04-07-2025 ambulatory ASTRID HAWLEY [facility] Start: 03-24-2025 End: 03-24-2025 ambulatory NO ASSIGNED PCP GENERIC PROVIDER [facility] [facility] Start: 03-24-2025 End: 03-24-2025 Office outpatient [...] Start: 03-18-2025 End: 03-18-2025 ambulatory Julio SAMANIEGO Facility:[facility] Start: 03-12-2025 ambulatory Julio SAMANIEGO Facil ity:[facility] Start: 03-12-2025 Registered Referred Julio [facility] [place] [facility] [address] Start: 03-11-2025 End: 03-11-2025 Postop follow up visit related to original px Kong Mina MD Work Phone: [facility] Comment on above: Squamous cell carcin pasha of left thigh (Primary Dx) Start: 03-11-2025 End: 03-11-2025 ambulatory KONG MINA [facility] Start: 03-10-2025 End: 03-10-2025 ambulatory ASTRID HAWLEY [facility] Start: 03-10-2025 End: 03-10-2025 Office outpatient visit 40 minutes Astrid Hawley APRN-SLOT MACHINE KEY PERSON Work Phone: [facility] Comment on above: Encounter for monito ring opioid maintenance therapy (Primary Dx); Cancer associated pain; Squamous cell carcinoma of left thigh; Abscess; Other insomnia; Constipation due to pain medication therapy Start: 03-03-2025 End: 03-03-2025 ambulatory DEAN [facility] Start: 03-03-2025 End: 03-03-2025 Postop follow up visit related to original px Dean Jalloh MD Work Phone: [facility] Comment on above: Wound of thigh (Prim ayde Dx); Post-operative state; Encounter for change of dressing Start: 02-20-2025 ambulatory Julio SAMANIEGO Facil ity:[facility] Start: 02-20-2025 Registered Referred Julio rosario [place] - [address] Start: 02-18-2025 ambulatory Julio SAMANIEGO Facil ity:[facility] Start: 02-18-2025 Registered Referred Julio Purdy [facility] [place] - [address] Start: 01-13-2025 End: 01-13-2025 ambulatory NO ASSIGNED PCP GENERIC PROVIDER [facility] Start: 01-13-2025 End: 01-13-2025 Subsequent hospital visit by physician Elizabeth [facility] Comment on above: Encounter for antine oplastic radiation therapy; 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, including hip Start: 01-10-2025 End: 01-10-2025 ambulatory NO ASSIGNED PCP GENERIC PROVIDER [facility] Start: 01-10-2025 End: 01-10-2025 Subsequent hospital visit by physician Elizabeth [facility] Comment on above: Arrived Encounter for antine oplastic radiation therapy; 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, including hip Start: 01-09-2025 End: 01-09-2025 ambulatory NO ASSIGNED PCP GENERIC PROVIDER [facility] Start: 01-09-2025 End: 01-09-2025 Subsequent hospital visit by physician Blaise Quijano [facility] Comment on above: Arrived Encounter for antine oplastic radiation therapy; 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, including hip Start: 01-08-2025 End: 01-08-2025 ambulatory NO ASSIGNED PCP GENERIC PROVIDER [facility] Start: 01-08-2025 End: 01-08-2025 Subsequent hospital visit by physician Elizabeth [facility] Comment on above: Arrived Encounter for antine oplastic radiation therapy; 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, including hip Start: 01-08-2025 End: 01-08-2025 ambulatory NO ASSIGNED PCP GENERIC PROVIDER [facility] Start: 01-08-2025 End: 01-08-2025 Subsequent hospital visit by physician Leslee Krueger Onc Tx Plan [facility] Comment on above: Arrived Start: 01-07-2025 End: 01-07-2025 ambulatory NO ASSIGNED PCP GENERIC PROVIDER [facility] Start: 01-07-2025 End: 01-07-2025 Subsequent hospital visit by physician [email or web address] [facility] Comment on above: Arrived Start: 01-06-2025 ambulatory NO ASSIGNED PC P GENERIC PROVIDER [facility] Start: 01-03-2025 End: 01-03-2025 ambulatory NO ASSIGNED PCP GENERIC PROVIDER [facility] Start: 01-03-2025 End: 01-03-2025 Subsequent hospital visit by physician Leslee Krueger Onc Tx Plan [facility] Comment on above: Arrived Start: 01-02-2025 End: 01-02-2025 Subsequent hospital visit by physician Leslee Bb Ct Simulator [facility] Comment on above: 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, including hip (Primary Dx) Start: 01-02-2025 End: 01-02-2025 ambulatory NO ASSIGNED PCP GENERIC PROVIDER [facility] Start: 01-02-2025 End: 01-02-2025 ambulatory PHIL CONNELLMAXIMSUISABEL [facility] Start: 01-02-2025 End: 01-02-2025 Subsequent hospital visit by physician Evans External [employer] [facility] [employer] [employer] Comment on above: 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, including hip Start: 12-24-2024 End: 02-17-2025 Evaluation and management of inpatient KONG Dominguez CHAIM [facility] Start: 12-23-2024 Evaluation and manag ement of inpatient CURTIS ROSSNANDEZ [facility] Start: 12-22-2024 End: 12-24-2024 Evaluation and management of inpatient shanikaevangelistabi Tobiasya DO Work Phone: [facility] Oncology Medical Uni [address] Comment on above: Sepsis, due to unspe cified organism, unspecified whether acute organ dysfunction present (HCC) (Primary Dx); Abscess of left hip Start: 12-20-2024 End: 12-20-2024 ambulatory [facility] Start: 12-20-2024 End: 12-20-2024 ambulatory [facility] Start: 12-20-2024 End: 12-20-2024 Office outpatient visit 40 minutes Sreedhar Jiang MD Work Phone: [facility] Comment on above: Squamous cell carcin pasha of left hip (Primary Dx); Hypercalcemia of malignancy Start: 12-20-2024 End: 12-20-2024 ambulatory [facility] Start: 12-12-2024 End: 12-12-2024 Evaluation and management of inpatient [facility] Start: 12-07-2024 End: 12-19-2024 Evaluation and management of inpatient Mine Nunez MD Work Phone: [facility] 5 Start: 12-06-2024 End: 12-07-2024 Evaluation and management of inpatient Fer Hollins MD Work Phone: [facility] EMERGENCY DEPT Comment on above: Abscess of left hip (Primary Dx) Start: 12-04-2024 End: 12-04-2024 ambulatory Julio SAMANIEGO [facility] Work Phone: Start: 12-04-2024 End: 12-04-2024 Departed Referred [facility]io [facility] [place] [facility] [address] Start: 12-04-2024 Registered Referred Julio Nolasco -[facility] [place] - [address] Start: 12-04-2024 End: 12-04-2024 ambulatory Julio SAMANIEGO Facility:[facility] Start: 11-29-2024 End: 11-29-2024 Office outpatient visit 40 minutes Sreedhar Jiang MD Work Phone: [facility] Comment on above: 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); Squamous cell carcinoma of left hip; Hypercalcemia Start: 11-29-2024 End: 03-14-2025 ambulatory IRIS Y APOLINAR [facility] Start: 11-10-2024 End: 11-27-2024 Evaluation and management of inpatient Baldomero Powell MD Work Phone: [facility] Soheila Aguirre 3 Start: 11-08-2024 End: 11-10-2024 Evaluation and management of inpatient Fer Kennedy MD Work Phone: [facility] Medical Surgical Unit MSU H5 Comment on above: Abscess (Primary Dx) Start: 10-24-2024 End: 10-24-2024 ambulatory Julio SAMANIEGO [facility] Work Phone: Start: 10-24-2024 End: 10-24-2024 Departed Referred Julio Nolasco -[facility] - [address] Start: 10-24-2024 End: 10-24-2024 ambulatory Julio SAMANIEGO Facility:[facility] Start: 10-10-2024 End: 10-23-2024 Evaluation and management of inpatient Kishore Gutierrez MD Work Phone: [facility] 20 Start: 09-30-2024 End: 09-30-2024 ambulatory [facility] Start: 09-30-2024 End: 09-30-2024 Office outpatient visit 25 minutes Marlon Christiansen MD Work Phone: [facility] Comment on above: Clinical trial parti cipant (Primary Dx) Start: 09-30-2024 End: 09-30-2024 Patient encounter procedure Marlon Christiansen MD Work Phone: [facility] Work Phone: Start: 09-24-2024 End: 09-24-2024 Office outpatient visit 10 minutes Ankit Nino MD Work Phone: [facility] Comment on above: Counseling on health promotion and disease prevention (Primary Dx); Hidradenitis suppurativa Start: 09-13-2024 End: 09-17-2024 Evaluation and management of inpatient Ankit Nino MD Work Phone: [facility] Comment on above: Wound infection (Renee francine Dx); Nausea; Constipation, unspecified constipation type; Viral infection; Smoking Start: 09-12-2024 End: 09-13-2024 Emergency department patient visit Xiomara Kauffman MD Work Phone: [facility] ED Comment on above: Buttock wound, left, initial encounter (Primary Dx); Sepsis, due to unspecified organism, unspecified whether acute organ dysfunction present (HCC); Hidradenitis suppurativa Start: 08-20-2024 End: 08-20-2024 ambulatory [facility] Start: 08-20-2024 End: 08-20-2024 Office outpatient visit 25 minutes Marlon Christiansen MD Work Phone: [facility] Comment on above: Clinical trial parti cipant (Primary Dx) Start: 08-20-2024 End: 08-20-2024 Patient encounter procedure Marlon Christiansen MD Work Phone: [facility] Work Phone: Start: 07-08-2024 End: 07-08-2024 ambulatory [facility] Start: 05-27-2024 End: 05-27-2024 ambulatory [facility] Start: 04-12-2024 End: 04-12-2024 ambulatory [facility] Start: 04-04-2024 End: 04-04-2024 ambulatory [facility] Start: 04-04-2024 End: 04-04-2024 Office outpatient visit 15 minutes Kimber Last MD Work Phone: [facility] Comment on above: Clinical trial parti cipant (Primary Dx) Start: 04-04-2024 End: 04-04-2024 Patient encounter procedure Kimber Last MD Work Phone: [facility] Work Phone: Start: 02-29-2024 End: 02-29-2024 Subsequent hospital visit by physician Leslee [id number] Cr [id number] Holter/Ecg Resource [facility] Comment on above: Clinical trial parti cipant Start: 02-29-2024 End: 02-29-2024 Office outpatient visit 25 minutes Kimber Last MD Work Phone: [facility] Comment on above: Clinical trial parti cipant (Primary Dx) Start: 02-29-2024 End: 02-29-2024 Patient encounter procedure Kimber Last MD Work Phone: [facility] Work Phone: Start: 02-09-2024 End: 02-09-2024 Office outpatient visit 40 minutes Kimber Last MD Work Phone: [facility] Comment on above: Clinical trial parti cipant (Primary Dx) Start: 02-09-2024 End: 02-09-2024 Patient encounter procedure Kimber Last MD Work Phone: [facility] Work Phone: Start: 01-16-2024 End: 01-16-2024 Office outpatient visit 40 minutes Kimber Last MD Work Phone: [facility] Comment on above: Clinical trial parti cipant (Primary Dx) Start: 01-16-2024 End: 01-16-2024 Patient encounter procedure Kimber Last MD Work Phone: [facility] Work Phone: Start: 12-29-2023 End: 12-29-2023 Office outpatient visit 40 minutes Kimber Last MD Work Phone: [facility] Comment on above: Clinical trial parti cipant (Primary Dx) Start: 12-29-2023 End: 12-29-2023 Patient encounter procedure Kimber Last MD Work Phone: [facility] Work Phone: Start: 12-11-2023 End: 12-11-2023 Office outpatient visit 40 minutes Kimber Last MD Work Phone: [facility] Comment on above: Clinical trial parti cipant (Primary Dx) Start: 12-11-2023 End: 12-11-2023 Patient encounter procedure Kimber Last MD Work Phone: [facility] Work Phone: Start: 11-23-2023 End: 11-23-2023 Subsequent hospital visit by physician [facility] [id number] Cr Nonv1 Holter/Ecg Resource [facility] [place] Comment on above: Clinical trial parti cipant Start: 11-23-2023 End: 11-23-2023 Office outpatient new 60 minutes Kimber Last MD Work Phone: [facility] Comment on above: Clinical trial parti cipant (Primary Dx) Start: 11-23-2023 End: 11-23-2023 Patient encounter procedure Kimber Last MD Work Phone: [facility] Work Phone: Start: 04-08-2023 Transcribe Orders Vivian Keen MD Work Phone: [facility] Laboratory Comment on above: Hidradenitis suppura tiva (Primary Dx) Procedures Date Procedure Procedure Detail Performing Clinician Start: 03-18-2025 Gram stain microscopy Julio SAMANIEGO Start: 03-18-2025 End: 03-18-2025 Microbial culture, routine Julio SAMANIEGO Start: 03-12-2025 Procedure Julio SAMANIEGO Comment on above: Test Ordered: [id number] Drug Screen 9 w/Con f, WBETHYL ALCOHOL, [...] was developed and its performance characteristicsdetermined by [facility]. It has not been cleared or approvedby the Food and Drug Administration.Oxycodones Confirmation Positive MX Reference Range: .Oxycodone 42.0 ng/mL MX Reference Range: .Oxymorphone Negative ng/mL MX Reference Range: .Expected metabolism of oxycodone class drugs: Parent Drug Detected Metabolites Oxycodone: Oxymorphone Oxymorphone: NoneConfirmation threshold: 1.0 ng/mLPerformed at: [facility] [address] [id number] Director: Michelle Riggs [facility], Phone: [phone] at: [address] [id number] Director: Steve Rae PhD, Phone: [phone] Start: 02-20-2025 Vitamin D, 25-hydroxy measurement Julio [...] Urinalysis complete panel - Urine Ronna Leon MORTAR MAN - SLOT MACHINE KEY PERSON Work Phone: Start: 12-22-2024 Urnls dip stick/tablet rgnt auto w/o microscopy Ronna Leon MORTAR MAN - SLOT MACHINE KEY PERSON Work Phone: Start: 12-22-2024 Culture bacterial any source anaerobic iso&id Ronna Leon MORTAR MAN - SLOT MACHINE KEY PERSON Work Phone: Start: 12-22-2024 Radex hip unilateral with pelvis 2-3 views Ronna Leon MORTAR MAN - SLOT MACHINE KEY PERSON Work Phone: Start: 12-22-2024 Radiologic exam chest single view Ronna Leon MORTAR MAN - SLOT MACHINE KEY PERSON Work Phone: Start: 12-22-2024 Bacteria identified in Blood by Culture Ronna Leon MORTAR MAN - SLOT MACHINE KEY PERSON Work Phone: Start: 12-22-2024 Comprehensive metabolic panel Ronna zheng MORTAR MAN - SLOT MACHINE KEY PERSON Work Phone: Start: 12-22-2024 Manual Differential panel - Blood Ronna Leon MORTAR MAN - SLOT MACHINE KEY PERSON Work Phone: Start: 12-19-2024 Renal function panel Fer Gupta MD Work Phone: Start: 12-18-2024 Blood count complete auto&auto difrntl wbc Dara Alejo You DO Work Phone: Start: 12-17-2024 Renal function panel Fer Gupta MD Work Phone: Start: 12-16-2024 LACE TEARING SUPERVISOR MODIFIED BARIUM SWALLOW EVALUATION Fer Gupta MD [...] lds trcg only w/o i&r Lynette Segovia MORTAR MAN-SLOT MACHINE KEY PERSON Work Phone: Start: 12-12-2024 Mri lower extrem [...] bact xcpt urine blood/stool aerobic isol Brigitte oCy MD Work Phone: Start: 11-12-2024 Level iv surg pathology gross&microscopic exam Brigitte Coy MD Work Phone: Start: 11-12-2024 End: 11-12-2024 Comprehensive metabolic panel Noah Peña MD Work Phone: Start: 11-11-2024 Iadna hepatitis c quant & 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 Carlos Manuel Rader MD Work Phone: Start: [...] Dup-scan xtr veins complete bilateral study Frances Wtats MD Work Phone: Start: 10-21-2024 Basic metabolic [...] Work Phone: Start: 09-17-2024 Renal function panel Carols Lewis MD Work Phone: Start: 09-16-2024 Drug [...] for Adults (1 - 1-dose 75+ series) [facility] Start: 2033 RSV patient s and/or patients aged 60+ years (1 - 1-dose 60+ series) RSV patients and/or patients aged 60+ years (1 - 1-dose 60+ series) [facility] Start: 09-14-2029 Lipid panel [facility] Start: 11-13-2027 Diabetes mellitus screening [facility] Start: 09-14-2027 Diabetes mellitus screening [facility] Start: 11-08-2025 Hemoglobin A1c measurement [facility] Start: 09-14-2025 Hemoglobin A1c measurement [facility] Start: 05-19-2025 Influenza vaccination U [facility] Start: 05-16-2025 End: 05-16-2025 Admission to same day surgery center 05/16/2025 1:05 PM EDT - 05/16/2025 3:05 PM EDT Surgery [facility] [place] [address] [place] [address] [place] [address] [address] Department [place] [address] SURGICAL PROCUREMENT, GRAFT, SKIN, FULL-THICKNESS, LOWER EXTREMITY [55111 (CPT )] [facility] [place] Comment on above: SURGICAL PROCUREMENT , GRAFT, SKIN, FULL-THICKNESS, LOWER EXTREMITY [57225 (CPT )] Start: 05-16-2025 End: 05-16-2025 Fth/gft fr w/dir clsr s/a/l ea addl 20 cm/< SURGICAL PROCUREMENT, GRAFT, SKIN, FULL-THICKNESS, LOWER EXTREMITY Wound of thigh 05/16/2025 1:05 PM EDT Virtual [facility] [place] KENJI Start: 05-16-2025 Subsequent hospital visit by physician 05/16/2025 11:35 AM EDT Hospital Encounter [facility] [place] [address] [place] [address] [place] [address] [address] Department [place] [address] [facility] [place] Start: 05-13-2025 End: 05-13-2025 Telemedicine consultation with patient 05/13/2025 2:00 PM EDT Telemedicine [facility] [address] [place] [phone] Astrid Hawley, MORTAR MAN-SLOT MACHINE KEY PERSON [address] [place] [address] [facility] Start: 04-30-2025 End: 04-30-2025 Admission to establishment 04/30/2025 9:15 AM EDT Pre-Admission Testing [facility] [address] [place] [phone] [facility] Start: 04-07-2025 End: 04-07-2025 Telemedicine consultation with patient 04/07/2025 1:30 PM EDT Telemedicine [facility] [address] [place] [address] Astrid Hawley, MORTAR MAN-SLOT MACHINE KEY PERSON [address] [place] [address] [facility] Start: 03-24-2025 End: 03-24-2025 Patient encounter procedure 03/24/2025 11:00 AM EDT Office Visit [facility] [address] [facility] [address] [place] [phone] [facility] Start: 03-11-2025 End: 03-11-2025 Patient encounter procedure 03/11/2025 12:00 PM EDT Office Visit [facility] [address] [place] [phone] [place] [address] [place] [address] [facility] Start: 03-11-2025 End: 03-11-2025 Telemedicine consultation with patient 03/11/2025 12:00 PM EDT Telemedicine [address] [place] [phone] [place] [address] [address] [place] [address] [facility] Start: 03-10-2025 End: 03-10-2026 Drug Screen 9 Panel, Blood with Reflex to Confirmation Drug Screen 9 Panel, Blood with Reflex to Confirmation Lab Routine Encounter for monitoring opioid maintenance therapy Expected: 03/10/2025 (Approximate), Expires: 03/10/2026 [facility] Service Area Work Phone: Comment on above: Expected: 03/10/2025 (Approximate), Expires: 03/10/2026 Start: 03-10-2025 End: 03-10-2025 Patient encounter procedure 03/10/2025 2:00 PM EDT Office Visit [facility] [address] [phone] Astrid Hawley, MORTAR MAN-SLOT MACHINE KEY PERSON [address] [place] [address] [facility] Start: 01-27-2025 End: 01-27-2025 Follow-up encounter 01/27/2025 2:40 PM EDT Follow-Up [facility] [address] [place] [address] Ara Riggs PA-C [address] [place] [address] [facility] Start: 01-21-2025 End: 01-21-2025 Patient encounter procedure 01/21/2025 2:30 PM EDT Office Visit [facility] [address] [phone] Astrid Hawley, MORTAR MAN-SLOT MACHINE KEY PERSON [address] [place] [address] [facility] Start: 01-16-2025 End: 01-16-2025 ambulatory 01/16/2025 4:00 PM EDT Infusion [facility] [address] [place] [phone] [facility] Start: 01-16-2025 End: 01-16-2025 Patient encounter procedure 01/16/2025 3:00 PM EDT Office Visit [facility] [address] [phone] Sarah Rodarte, MORTAR MAN-SLOT MACHINE KEY PERSON [address] [place] [address] [facility] Start: 01-13-2025 End: 01-13-2025 Patient encounter procedure 01/13/2025 2:00 PM EDT Appointment [facility] [address] [place] [address] [facility] Start: 01-10-2025 End: 01-10-2025 Patient encounter procedure 01/10/2025 4:45 PM EDT Appointment [facility] [address] [place] [address] [facility] Start: 01-10-2025 End: 01-10-2026 CBC W Auto Differential panel - Blood CBC and Auto Differential Lab Routine Squamous cell carcinoma of left hip Expected: 01/10/2025, Expires: 01/10/2026 [facility] Service Area Work Phone: Comment on above: Expected: 01/10/2025 , Expires: 01/10/2026 Start: 01-10-2025 End: 01-10-2026 Comprehensive metabolic 2000 panel - Serum or Plasma Comprehensive metabolic panel Lab Routine Squamous cell carcinoma of left hip Expected: 01/10/2025, Expires: 01/10/2026 [facility] Work Phone: Comment on above: Expected: 01/10/2025 , Expires: 01/10/2026 Start: 01-10-2025 End: 01-10-2026 Lactate dehydrogenase [Enzymatic activity/volume] in Serum or Plasma by Lactate to pyruvate reaction Lactate dehydrogenase Lab Routine Squamous cell carcinoma of left hip Expected: 01/10/2025, Expires: 01/10/2026 [facility] Work Phone: Comment on above: Expected: 01/10/2025 , Expires: 01/10/2026 Start: 01-10-2025 End: 01-10-2025 ambulatory 01/10/2025 1:00 PM EDT Infusion [facility] [address] [place] [address] [facility] Start: 01-10-2025 End: 01-10-2025 Patient encounter procedure [facility] Start: 01-09-2025 End: 01-09-2025 Patient encounter procedure [facility] Start: 01-08-2025 End: 01-08-2025 Patient encounter procedure [facility] Start: 01-07-2025 End: 01-07-2025 ambulatory [facility] Start: 01-07-2025 End: 01-07-2025 Patient encounter procedure [facility] Start: 01-07-2025 End: 01-07-2025 Patient encounter procedure 01/07/2025 8:30 AM EDT Appointment [facility] [address] [place] [address] [facility] Start: 01-06-2025 End: 01-06-2025 Patient encounter procedure 01/06/2025 6:00 PM EDT Appointment [facility] [address] [place] [address] [facility] Start: 12-30-2024 End: 12-30-2024 ambulatory [facility] Start: 12-30-2024 End: 12-30-2024 Patient encounter procedure 12/30/2024 10:00 AM EDT Office Visit [facility] [address] [place] [address] Astrid Hawley, MORTAR MAN-SLOT MACHINE KEY PERSON [address] [place] [address] [facility] Start: 12-20-2024 End: 12-20-2024 ambulatory [facility] Start: 12-17-2024 End: 12-17-2024 ambulatory [facility] Start: 12-17-2024 End: 12-17-2024 Patient encounter procedure 12/17/2024 1:00 PM EDT Office Visit [facility] [address] [place] [phone] Astrid Hawley, MORTAR MAN-SLOT MACHINE KEY PERSON [address] [place] [address] [facility] Start: 12-06-2024 End: 12-06-2025 CBC W Auto Differential panel - Blood CBC and Auto Differential Lab Routine Squamous cell carcinoma of left hip Expected: 12/06/2024, Expires: 12/06/2025 [facility] Service Area Work Phone: Comment on above: Expected: 12/06/2024 , Expires: 12/06/2025 Start: 12-06-2024 End: 12-06-2025 Comprehensive metabolic 2000 panel - Serum or Plasma Comprehensive metabolic panel Lab Routine Squamous cell carcinoma of left hip Expected: 12/06/2024, Expires: 12/06/2025 [facility] Work Phone: Comment on above: Expected: 12/06/2024 , Expires: 12/06/2025 Start: 12-06-2024 End: 12-06-2025 Corticotropin [Mass/volume] in Plasma Acth Lab Routine Squamous cell carcinoma of left hip Expected: 12/06/2024, Expires: 12/06/2025 [facility] Work Phone: Comment on above: Expected: 12/06/2024 , Expires: 12/06/2025 Start: 12-06-2024 End: 12-06-2025 Cortisol [Mass or Moles/volume] in Serum or Plasma --AM peak specimen Cortisol Am Lab Routine Squamous cell carcinoma of left hip Expected: 12/06/2024, Expires: 12/06/2025 [facility] Work Phone: Comment on above: Expected: 12/06/2024 , Expires: 12/06/2025 Start: 12-06-2024 End: 12-06-2025 Lactate dehydrogenase [Enzymatic activity/volume] in Serum or Plasma by Lactate to pyruvate reaction Lactate dehydrogenase Lab Routine Squamous cell carcinoma of left hip Expected: 12/06/2024, Expires: 12/06/2025 [facility] Work Phone: Comment on above: Expected: 12/06/2024 , Expires: 12/06/2025 Start: 12-06-2024 End: 12-06-2025 Tsh With Reflex To Free T4 If Abnormal Tsh With Reflex To Free T4 If Abnormal Lab Routine Squamous cell carcinoma of left hip Expected: 12/06/2024, Expires: 12/06/2025 [facility] Work Phone: Comment on above: Expected: 12/06/2024 , Expires: 12/06/2025 Start: 11-29-2024 End: 11-29-2024 ambulatory [facility] Start: 11-12-2024 End: 11-12-2024 ambulatory [facility] Start: 09-30-2024 End: 09-30-2024 Patient encounter procedure 09/30/2024 10:00 AM EST Office Visit [facility] [address] [facility] [address] [place] [phone] [place] [id number] [address] Department of Dermatology/[place] [address] [facility] Start: 09-24-2024 End: 09-24-2024 Telemedicine consultation with patient 09/24/2024 8:40 AM EST Telemedicine [facility] [address] [facility] [address] [place] [phone] [place] [address] [place] [address] [facility] [place] Start: 09-20-2024 End: 09-20-2024 Patient encounter procedure 09/20/2024 11:30 AM EST Office Visit [address] [place] [phone] Ronna Carpenter, MORTAR MAN-SLOT MACHINE KEY PERSON [address] [facility] [address] [place] [address] [facility] Start: 09-18-2024 End: 09-17-2025 CBC panel - Blood by Automated count CBC Lab Routine Wound infection Expected: 09/18/2024 (Approximate), Expires: 09/17/2025 [facility] Work Phone: Comment on above: Expected: 09/18/2024 (Approximate), Expires: 09/17/2025 Start: 09-18-2024 End: 09-17-2025 Renal function 2000 panel - Serum or Plasma Renal function panel Lab Routine Wound infection Expected: 09/18/2024 (Approximate), Expires: 09/17/2025 [facility] Service Area Work Phone: Comment on above: Expected: 09/18/2024 (Approximate), Expires: 09/17/2025 Start: 05-19-2024 COVID-19 Vaccine ( season) COVID-19 Vaccine ( season) [facility] Start: 05-19-2024 Influenza vaccination [facility] Start: 05-19-2024 [facility] Start: 04-12-2024 End: 04-12-2024 Patient encounter procedure 04/12/2024 9:00 AM EDT Office Visit [facility] [id number] [place] [phone] [place] [address] [address] Department of Dermatology/[place] [address] [facility] Start: 03-29-2024 End: 03-29-2024 Patient encounter procedure 03/29/2024 9:00 AM EDT Office Visit [facility] [address] [place] [phone] [place] [address] [address] Department of Dermatology/[place] [address] [facility] Start: 03-19-2024 DTaP/Tdap/Td Vaccine s (2 - Td or Tdap) DTaP/Tdap/Td Vaccines (2 - Td or Tdap) [facility] Start: 03-19-2024 [facility] Start: 02-29-2024 End: 02-28-2025 ECG 12 lead (Ancillary Performed) [facility] Service Area Work Phone: Comment on above: Expected: 02/29/2024 (Approximate), Expires: 02/28/2025 Once for 1 Occurrenc es starting 02/29/2024 until 02/29/2024 Start: 02-09-2024 End: 02-09-2024 Patient encounter procedure 02/09/2024 9:30 AM EDT Office Visit [facility] [address] [facility] [address] [place] [phone] [place] [address] [address] Department of Dermatology/[place] [address] [facility] Start: 01-16-2024 End: 01-16-2024 Patient encounter procedure 01/16/2024 10:30 AM EDT Office Visit [facility] [address] [facility] [address] [place] [address] [place] [address] [address] Department of Dermatology/[place] [address] [facility] Start: 11-23-2023 Subsequent hospital visit by physician 11/23/2023 11:01 AM EST Hospital Encounter [facility] [place] [address] [facility] [address] [place] [phone] Clinical trial participant [facility] Comment on above: Clinical trial parti cipant Start: 2023 Pneumococcal vaccination Pneum ococcal Vaccine (2 of 2 - PCV) [facility] Start: 2023 Pneumococcal Vaccine : 50+ Years (2 of 2 - PCV) Pneumococcal Vaccine: 50+ Years (2 of 2 - PCV) [facility] Start: 2023 Screening for malign ant neoplasm of lung [facility] Start: 2023 Zoster Vaccines (1 of 2) Zoste r Vaccines (1 of 2) [facility] Start: 2023 [facility] Start: 05-19-2023 COVID-19 Vaccine ( season) COVID-19 Vaccine ( season) [facility] Start: 05-19-2023 Influenza vaccination Influenza Vacc ine (#1) [facility] Start: 03-19-2015 Pneumococcal vaccination Pneum ococcal Vaccine (2 of 2 - PCV) [facility] Start: 03-19-2015 [facility] Start: 1995 DTaP/Tdap/Td Vaccine s (1 - Tdap) DTaP/Tdap/Td Vaccines (1 - Tdap) [facility] Start: 1992 DTaP/Tdap/Td Vaccine s (1 - Tdap) DTaP/Tdap/Td Vaccines (1 - Tdap) [facility] Start: 1992 Hepatitis B Vaccines (1 of 3 - 19+ 3-dose series) Hepatitis B Vaccines (1 of 3 - 19+ 3-dose series) [facility] Start: 1992 Urine screening for protein [facility] Start: 1992 Zoster Vaccines (1 of 2) Zoste r Vaccines (1 of 2) [facility] Start: 1992 [facility] Start: 1991 Diabetes mellitus screening Diabetes Screening [facility] Start: 1991 Hepatitis C screening [facility] Start: 1985 Depression Screening Depression Scre ening [facility] Start: 1978 COVID-19 Vaccine (#1) COVID-19 Vacci ne (#1) [facility] Start: 1978 [facility] Start: 1974 MMR Vaccines (1 of 1 - Standard series) MMR Vaccines (1 of 1 - Standard series) [facility] Start: 1974 [facility] Start: 01-29-1974 COVID-19 Vaccine (#1) COVID-19 Vacci ne (#1) [facility] Start: 01-29-1974 Examination of skin [facility] Start: 1973 Hepatitis B Vaccines (1 of 3 - 3-dose series) Hepatitis B Vaccines (1 of 3 - 3-dose series) [facility] Start: [address] [facility] Start: [address]id Panel [facility] Start: 1973 Screening for malign ant neoplasm of colon [facility] Start: 1973 Yearly Adult Physical Yearly Adult P hysical [facility] Start: 1973 [facility] End: 12-17-2024 Acupuncture eval and treat [facility] Service Area Work Phone: End: 09-12-2024 Aerobic and Anaerobic Culture with Stain [facility] Work Phone: Comment on above: Once (Lab) for 1 Occ urrences starting 09/12/2024 until 09/12/2024 End: 11-08-2024 Aerobic and Anaerobic Culture with Stain Aerobic and Anaerobic Culture with Stain Microbiology STAT Once (Lab) for 1 Occurrences starting 11/08/2024 until 11/08/2024 [facility] Work Phone: Comment on above: Once (Lab) for 1 Occ urrences starting 11/08/2024 until 11/08/2024 End: 12-06-2024 Aerobic and Anaerobic Culture with Stain [facility] Work Phone: Comment on above: Once (Lab) for 1 Occ urrences starting 12/06/2024 until 12/06/2024 End: 12-22-2024 Aerobic and Anaerobic Culture with Stain [facility] Work Phone: Comment on above: Once (Lab) for 1 Occ urrences starting 12/22/2024 until 12/22/2024 End: 09-16-2024 AFB CULTURE & STAIN; [facility]; [id number] - Miscellaneous Test [facility] Work Phone: Comment on above: Once (Lab) for 1 Occ urrences starting 09/16/2024 until 09/16/2024, 1 completed End: 11-18-2024 Art Therapy eval and treat [facility] Work Phone: End: 12-08-2024 Art Therapy eval and treat [facility] Work Phone: Bacteria identified in Blood by Culture [facility] [place] Bacteria identified in Blood by Culture Blood Culture Microbiology Routine 09/13/2024 11:14 PM EST [facility] Work Phone: Bacteria identified in Blood by Culture [facility] [place] Bacteria identified in Blood by Culture [facility] [place] Bacteria identified in Blood by Culture [facility] Bacteria identified in Unspecified specimen by Aerobe culture Culture, Aerobic Bacteria with Gram Stain Microbiology STAT 09/12/2024 9:58 PM EST [facility] [place] End: 11-08-2024 Bacteria identified in Unspecified specimen by Aerobe culture Culture, Aerobic Bacteria with Gram Stain Microbiology Timed Once for 1 Occurrences starting 11/08/2024 until 11/08/2024 [facility] Work Phone: Comment on above: Once for 1 Occurrenc es starting 11/08/2024 until 11/08/2024 Bacteria identified in Unspecified specimen by Aerobe culture Culture, Aerobic Bacteria with Gram Stain Microbiology STAT 12/06/2024 12:18 PM EDT [facility] [place] Bacteria identified in Unspecified specimen by Aerobe culture Culture, Aerobic Bacteria with Gram Stain Microbiology STAT 12/22/2024 1:37 PM EDT [facility] [place] End: 09-12-2024 Bacteria identified in Unspecified specimen by Anaerobe culture [facility] Comment on above: Once for 1 Occurrenc es starting 09/12/2024 until 09/12/2024 End: 11-08-2024 Bacteria identified in Unspecified specimen by Anaerobe culture Anaerobic culture Microbiology Timed Once for 1 Occurrences starting 11/08/2024 until 11/08/[address] [facility] [place] Comment on above: Once for 1 Occurrenc es starting 11/08/2024 until 11/08/2024 End: 12-06-2024 Bacteria identified in Unspecified specimen by Anaerobe culture [facility] [place] Comment on above: Once for 1 Occurrenc es starting 12/06/2024 until 12/06/2024 Bacteria identified in Unspecified specimen by Anaerobe culture Anaerobic culture Microbiology STAT 12/22/2024 1:37 PM EDT [facility] [place] Basic metabolic 2000 panel - Serum or Plasma [facility] Work Phone: CBC W Auto Different ial panel - Blood CBC and Auto Differential Lab Routine Morning draw (Lab) until discontinued starting 09/14/2024, 4 completed [facility] Work Phone: Comment on above: Morning draw (Lab) u ntil discontinued starting 09/14/2024, 4 completed CBC W Auto Different ial panel - Blood [facility] Work Phone: CBC W Auto Different ial panel - Blood [facility] Work Phone: CBC W Auto Different ial panel - Blood [facility] Work Phone: End: 10-11-2024 Consult to Interventional Radiology [facility] Work Phone: End: 11-12-2024 Consult to Interventional Radiology [facility] Work Phone: End: 11-20-2024 Consult to Interventional Radiology [facility] Work Phone: ECG 12 Lead ECG 12 Lead ECG Routine 09/14/2024 12:30 AM EST [facility] Work Phone: End: 11-13-2024 ECG 12 lead [facility] Work Phone: ECG 12 lead (Ancilla ry Performed) ECG 12 lead (Ancillary Performed) ECG Routine Clinical trial participant 11/23/2023 11:01 AM EST [facility] Work Phone: Electrocardiogram, 12-lead PRN ACS symptoms Electrocardiogram, 12-lead PRN ACS symptoms ECG Routine As needed until discontinued starting 09/13/2024 [facility] Work Phone: Comment on above: As needed until disc ontinued starting 09/13/2024 Electrocardiogram, 12-lead PRN ACS symptoms [facility] Work Phone: Electrocardiogram, 12-lead PRN ACS symptoms [facility] Work Phone: Electrocardiogram, 12-lead PRN ACS symptoms [facility] Work Phone: Fth/gft fr w/dir cls r s/a/l ea addl 20 cm/< SURGICAL PROCUREMENT, GRAFT, SKIN, FULL-THICKNESS, LOWER EXTREMITY Wound of thigh [facility] [place] End: 09-13-2024 Fungitell Beta-D Glucan Serum [facility] Work Phone: Comment on above: Once (Lab) for 1 Occ urrences starting 09/13/2024 until 09/13/2024 Fungus identified in Unspecified specimen by Culture Fungal Culture/Smear Microbiology Routine 09/14/2024 11:41 AM EST [facility] Work Phone: Fungus identified in Unspecified specimen by Culture [facility] Work Phone: End: 09-13-2024 Histoplasma antigen, serum [facility] Work Phone: Comment on above: Once (Lab) for 1 Occ urrences starting 09/13/2024 until 09/13/2024 Magnesium [Mass/volu me] in Serum or Plasma Magnesium Lab Routine Morning draw (Lab) until discontinued starting 09/14/2024, 4 completed [facility] Work Phone: Comment on above: Morning draw (Lab) u ntil discontinued starting 09/14/2024, 4 completed Magnesium [Mass/volu me] in Serum or Plasma [facility] Work Phone: Magnesium [Mass/volu me] in Serum or Plasma [facility] Work Phone: End: 12-21-2024 Magnesium [Mass/volume] in Serum or Plasma [facility] Work Phone: End: 11-18-2024 Music Therapy eval and treat [facility] Work Phone: End: 12-08-2024 Music Therapy eval and treat [facility] Work Phone: Phosphate [Mass/volu me] in Serum or Plasma [facility] Work Phone: Renal function 1999 panel - Serum or Plasma Renal Function Panel Lab Routine Morning draw (Lab) until discontinued starting 09/14/2024, 4 completed [facility] Work Phone: Comment on above: Morning draw (Lab) u ntil discontinued starting 09/14/2024, 4 completed Renal function 1999 panel - Serum or Plasma [facility] Work Phone: Renal function 1999 panel - Serum or Plasma [facility] Work Phone: Immunizations Immunization Date Immunization Notes Care Provider Fa cilijoelle 12-08-2024 influenza vaccine tiss-cult subunt (Flucelvax) STANDARD-DOSE injection 0.5 mL Fer Hollins MD Work Phone: [facility] Payers Date Payer Category Payer Self-pay 2024 Medicaid (Managed Care) [id number] 2024 Medicaid HMO [id number] 2024 [facility] [id number] 2024 Medicaid [id number] 2022 Managed Care (Private) [facility] [facility] [id number] 2022 Private Health Insurance [id number] 2022 Private Health Insurance [id number] 1973 Unknown [id number] 2.16.840.1.164996.3.579. 2.1243 1973 Unknown [id number] 2.16.840.1.546782.3.579. 2.1243 1973 Unknown [id number] 2.16.840.1.680990.3.579. 2.1243 1973 Unknown [id number] 2.16840.1.761766.3.579. 2.1243 1973 Unknown [id number] 2.16.840.1.889698.3.579. 2.1243 1973 Unknown [id number] 2.16.840.1.155089.3.579. 2.1243 1973 Unknown [id number] 2.16.840.1.004861.3.579. 2.1243 1973 Unknown [id number] 2.16.840.1.004604.3.579. 2.1243 1973 Unknown [id number] 2.16.840.1.549780.3.579. 2.1244 1973 Unknown [id number] 2.16.840.1.144107.3.579. 2.1244 1973 Unknown [id number] 2.16.840.1.021598.3.579. 2.1244 1973 Unknown [id number] 2.16.840.1.042356.3.579. 2.1244 1973 Unknown [id number] 2.16.840.1.057806.3.579. 2.1244 1973 Unknown [id number] 2.16.840.1.110814.3.579. 2.1244 1973 Unknown [id number] 2.16.840.1.616397.3.579. 2.1244 1973 Unknown [id number] 2.16.840.1.365027.3.579. 2.1244 1973 Unknown [id number] 2.16.840.1.337201.3.579. 2.1244 1973 Unknown [id number] 2.16.840.1.146056.3.579. 2.1244 1973 Unknown [id number] 2.16.840.1.539823.3.579. 2.1244 1973 Unknown [id number] 2.16.840.1.150136.3.579. 2.1244 1973 Unknown [id number] 2.16.840.1.955276.3.579. 2.1244 1973 Unknown [id number] 2.16.840.1.551447.3.579. 2.1244 1973 Unknown [id number] 2.16.840.1.118505.3.579. 2.1244 1973 Unknown [id number] 2.16.840.1.272454.3.579. 2.1244 1973 Unknown [id number] 2.16.840.1.819213.3.579. 2.1244 1973 Unknown [id number] 2.16.840.1.182291.3.579. 2.1244 1973 Unknown [id number] 2.16.840.1.517262.3.579. 2.1244 1973 Unknown [id number] 2.16.840.1.262389.3.579. 2.1245 1973 Unknown [id number] 2.16.840.1.220638.3.579. 2.1245 1973 Unknown [id number] 2.16.840.1.235232.3.579. 2.124 1973 Unknown [id number] 2.16.840.1.632228.3.579. 2.1244 1973 Unknown [id number] 2.16.840.1.445744.3.579. 2.124 1973 Unknown [id number] 2.16.840.1.190355.3.579. 2.1244 1973 Unknown [id number] 2.16.840.1.718181.3.579. 2.1245 Unknown [id number] 2.16.840.1.628853.3.579. 2.462 Unknown [id number] 2.16.840.1.039412.3.579. 2.462 Unknown [id number] 2.16.840.1.458247.3.579. 2.462 Unknown [id number] 2.16.840.1.322578.3.579. 2.462 Unknown [id number] 2.16.840.1.868496.3.579. 2.462 Unknown [id number] 2.16.840.1.600269.3.579. 2.462 Unknown [id number] 2.16.840.1.217397.3.579. 2.462 Social History Date Type Detail Facility Tobacco smoking stat [facility] Tobacco smoking consumption unknown [facility] Start: 1975 Sex Assigned At Not on file [facility] Start: 09-13-2024 End: 02-17-2025 Gender identity Not on file [facility] Start: 03-29-2023 End: 02-04-2025 Exposure to SARS-CoV-2 (event) Not sure [facility] Start: 04-08-2023 End: 12-27-2024 Sex Male (finding) [facility] Start: 09-18-1986 [facility] Work Phone: Start: 09-18-1986 End: 09-18-1986 History of tobacco use Cigarette Smoker [facility] Work Phone: Start: 09-13-2024 End: 02-17-2025 Cigarettes smoked current (pack per day) - Reported 1 [facility] Work Phone: Start: 09-13-2024 End: 11-10-2024 Tobacco use and exposure Smokeless tobacco non-user [facility] Work Phone: How often to you hav e a drink containing alcohol? Never [facility] Work Phone: Start: 11-23-2023 How many standard drinks containing alcohol do you have on a typical day? Patient does not drink [facility] Work Phone: How hard is it for y ou to pay for the very basics like food, housing, medical care, and heating Very hard [facility] In the past 12 month s, was there a time when you were not able to pay the mortgage or rent on time? Yes [facility] Work Phone: At any time in the p ast 12 months, were you homeless or living in [facility] [including now]? No [facility] Work Phone: How hard is it for y ou to pay for the very basics like food, housing, medical care, and heating Somewhat hard [facility] (I/We) worried wheth er (my/our) food would run out before (I/we) got money to buy more. Sometimes true [facility] Work Phone: (I/We) worried wheth er (my/our) food would run out before (I/we) got money to buy more. Never true [facility] [place] Start: 11-10-2024 [facility] Start: 09-18-2023 End: 09-18-1986 History of tobacco use Current smoker [facility] Work Phone: Start: 11-10-2024 End: 03-14-2025 Alcoholic beverage intake Ex-drinker (finding) [facility] Work Phone: Start: 1975 Sex Assigned At Male [facility] Goals Date Patient Goal Desired Activity /State Personal health goal Functional Status Date Assessment Result Facility 12-07-2024 Are you deaf, or do you have serious difficulty hearing No 12/07/2024 2:58 PM EDT Josie Townsend RN No [facility] 12-07-2024 Are you blind, or do you have serious difficulty seeing, even when wearing glasses No 12/07/2024 2:58 PM EDT Josie Townsend RN No [facility] 12-07-2024 Do you have serious difficulty walking or climbing stairs Yes 12/07/2024 2:58 PM EDT Josie Townsend RN Yes [facility] 12-07-2024 Because of a physica l, mental, or emotional condition, do you have difficulty doing errands alone such as visiting a physician's office or shopping Yes 12/07/2024 2:58 PM EDT Josie Townsend RN Yes [facility] Mental Status Date Assessment Result Facility 12-07-2024 Because of a physica l, mental, or emotional condition, do you have serious difficulty concentrating, remembering, or making decisions No 12/07/2024 2:58 PM EDT Josie Townsend RN No [facility] [place] Clinical Notes 04-04-2024 to 04-07-2025 TRAVIS Watson [...] Wishes to make his brother, Omkar La ([phone]) his HCPOA Next Follow-Up Visit: Return to [...] AM-5 PM , press option #5 Or [employer] Secure Chat documented in this encounter [facility] Work Phone: 03-24-2025 History of Present illness [...] to a Marjolin ulcer. He presented to [facility] on 12/24 for worsening disease of left [...] nursing note reviewed. Exam conducted with a research associate policy present. Constitutional: General: not in acute distress. [...] and Reconstructive Surgery documented in this encounter [facility] Work Phone: 03-11-2025 History of Present illness [...] healing. He has been recovering in a [facility] facility and is making plans for skin [...] close his loop colostomy. 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 He met with Dr. Jalloh last [...] at the margins. documented in this encounter [facility] Work Phone: 03-10-2025 History of Present illness [...] Wishes to make his brother, Omkar La ([phone]) his HCPOA Next Follow-Up Visit: Return to [...] Care discussed with: Patient SIGNATURE: Astrid Hawley APRN-SLOT MACHINE KEY PERSON Contact information: Supportive and Palliative Oncology Monday-Monday 8 AM-5 PM , press option #5, then option #1. Or [employer] Secure Chat documented in this encounter [facility] Work Phone: 03-03-2025 History of Present illness [...] refractory hidradenitis s/p operative debridement 10/13/2024 per [facility] due to significant infection burden. 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 He presented to [facility] on 12/24 for worsening disease of left [...] nursing note reviewed. Exam conducted with a research associate policy present. Constitutional: General: not in acute distress. [...] ongoing uncontrolled pain documented in this encounter [facility] Work Phone: 01-09-2025 History of Present illness Narrative Images from the original note were not included. Radiation Oncology On Treatment Visit Patient Name: Kevan La : 1975 Referring Provider: No ref. provider found Primary Care Provider: No Assigned PCP Ernestina Hagan MD Care Team: Patient Care Team: No Assigned Pcp Ernestina Hagan MD as PCP - General (Breast Worker) Sreedhar Jiang MD as Consulting Physician (Hematology [...] Follow up PRN. documented in this encounter [facility] Work Phone: 12-24-2024 Plan of care note [...] maintained or improved Outcome: Adequate for Discharge [facility] 12-24-2024 Miscellaneous Notes Problem: Knowledge Deficit Goal: [...] Awaiting sensitivity results documented in this encounter [facility] 12-24-2024 Note Hospitalist Progress Note Subjective: Admit Date: 12/22/2024 PCP: No primary care provider on file. Room#: E7-708/E7-708 A Chief Complaint Patient presents with Wound Infection Pt arrives by life care from [facility] in [place], [facility] care pt has had wound infection [...] Required levophed but is now off of. [facility] accepted him but waiting on bed until later this afternoon. He was boarded in our ED for 16hrs. Seen at bedside. Wounds are foul smelling. Pt states he was dropped off here from [facility] as it was the closest hospital. All [...] body function (HIGH). (more content not included)... [facility] 12-24-2024 History of Present illness Narrative Hospitalist Progress Note Subjective: Admit Date: 12/22/2024 PCP: No primary care provider on file. Room#: E7708/E7708 A Chief Complaint Patient presents with Wound Infection Pt arrives by life care from [facility] in [place], per life care pt has had wound [...] Required levophed but is now off of. [facility] accepted him but waiting on bed until later this afternoon. He was boarded in our ED for 16hrs. Seen at bedside. Wounds are foul smelling. Pt states he was dropped off here from [facility] as it was the closest hospital. All [...] Date -today - Location - Transfer to [facility] - Pending the following -transfer to Total time spent (which include face to face and non face to face encounters) : More than 30 minutes Extended Emergency Contact Information Primary Emergency Contact: TaliOmkar Mobile Relation: Brother Arleenjulisa Luis Fernandez MD Division of Hospital Medicine Inpatient Medical Services/[facility] Pharmacy to Dose Vancomycin - Progress Note Lab Results Component Value Date CREATININE 1.04 12/24/2024 BUN 7 (L) 12/24/2024 WBC 14.8 (H) 12/24/2024 Doses, serum creatinine, and vancomycin levels interfaced automatically to [employer]ro Jock and data has been analyzed and interpreted. [...] creatinine, and vancomycin levels interfaced automatically to [employer] Jock and data has been analyzed and interpreted. [...] via Secure Chat documented in this encounter [facility] 12-24-2024 Note Discharge Summary Kevan La : [...] Required levophed but is now off of. [facility] accepted him but waiting on bed until later this afternoon. He was boarded in our ED for 16hrs. Seen at bedside. Wounds are foul smelling. Pt states he was dropped off here from [facility] as it was the closest hospital. All [...] XR hip left 2 or 3 views [[id number]] Collected: 12/22/24 1339 Order Status: Completed Updated: 12/22/24 8083 Narrative: Patient Name: KEVAN LA : 1975 Exam Date/Time: 12/22/2024 13 (more content not included)... [facility] 12-24-2024 Hospital course Narrative Discharge Summary [...] Required levophed but is now off of. [facility] accepted him but waiting on bed until later this afternoon. He was boarded in our ED for 16hrs. Seen at bedside. Wounds are foul smelling. Pt states he was dropped off here from [facility] as it was the closest hospital. All [...] XR hip left 2 or 3 views [[id number]] Collected: 12/22/241329 Order Status: Completed Updated: 12/22/241333 [...] 1:33 PM EDT XR chest 1 view [[id number]] Collected: 12/22/24 1323 Order Status: Completed Updated: [...] FL modified barium with video and speech [[id number]] Collected: 12/16/24 1515 Order Status: Completed Updated: 12/22/24 1150 Narrative: Interpreted By: Jayson Abdi and Patriarca Hannah STUDY: FL MODIFIED BARIUM SWALLOW STUDY;; 12/16/2024 9:38 am INDICATION: Signs/Symptoms:r/o any dysphagia. COMPARISON: None. ACCESSION NUMBER(S): [id number] ORDERING CLINICIAN: GIBSON MENDIOLA TECHNIQUE: MBSS completed. Informed verbal consent obtained prior to completion of exam. Trials of thin, nectar thick, puree, and regular solids given. Fluoroscopy time : 1.8 minutes. Total of 2800 images were provided for review. 100 mL barium contrast. LACE TEARING SUPERVISOR: Makayla Dunham Phone/Pager: Immy SPEECH FINDINGS: Patient Name: Kevan La : 1975 Today's Date: 12/16/24 Start Time: 845 Stop Time: 915 Time Calculation (min): 30 min Modified Barium Swallow Study completed. Informed verbal consent obtained prior to completion of exam. Trials of thin liquid, mildly thick liquid, puree, and solids were given. LACE TEARING SUPERVISOR: Makayla Dunham, LACE TEARING SUPERVISOR Contact info: [employer] Reason for Referral: C/f aspiration/oropharyngeal dysphagia Patient Hx: Kevan La is a 49 y.o. 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 LACE TEARING SUPERVISOR Frequency: 2x per week Duration: 1-2 weeks [...] given on all accounts. Treatment Provided Today: LACE TEARING SUPERVISOR provided extensive education and training to pt/pt [...] further evaluation by medical specialists, as applicable. LACE TEARING SUPERVISOR Impressions with Severity Rating: Pt presenting with [...] obtained, suspect within normal limits for clearance LACE TEARING SUPERVISOR recommends cautious initiation of thin liquids and easy to chew diet. See additional PO intake guidelines outlined below. If pt demonstrates any change/decline in medical/mental/respiratory status please make NPO and alert LACE TEARING SUPERVISOR. Will continue to follow while in acute care setting to ensure diet tolerance and use of safe swallow guidelines. MD aware of recommendations Dayna's Penetration Aspiration Scale Thin Liquids: 3. PENETRATION with LOW ASPIRATION risk - contrast remains above vocal cords, visible residue [place] Thick Liquids: 3. PENETRATION with LOW ASPIRATION [...] Dilan Hester. This study was interpreted at [place], [place]. MACRO: None Signed by: Jayson Abdi 12/16/2024 4:54 PM Dictation workstation: [id number] MR femur left w and wo IV contrast [[id number]] Collected: 12/12/24 1334 Order Status: Completed Updated: 12/22/24 1150 Narrative: Interpreted By: Kong Armijo and Lawrence Austen STUDY: MRI of the left femur with and without contrast dated 12/12/2024. INDICATION: Gluteal abscess/malignancy. Biopsy result of squamous cell carcinoma. History of chronic hidradenitis suppurativa. COMPARISON: None. Correlation is made with 12/06/2024 and 11/19/2024 CT examinations. ACCESSION NUMBER(S): [id number] ORDERING CLINICIAN: GIBSON MENDIOLA TECHNIQUE: Multiplanar multisequence [...] Kong Armijo 12/12/2024 1:33 PM Dictation workstation: [id number] MR femur left wo IV contrast [[id number]] Collected: 12/12/24 1320 Order Status: Completed Updated: 12/22/24 1150 Narrative: Interpreted By: Kong Armijo and Lawrence Austen STUDY: MRI of the left femur with and without contrast dated 12/10/2024. 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 History of chronic hidradenitis suppurativa. COMPARISON: Correlation is made with 12/06/2024 and 11/19/2024 CT examinations. ACCESSION NUMBER(S): [id number] ORDERING CLINICIAN: TOYA RUBIO TECHNIQUE: Multiplanar multisequence MRI of the left femur was performed with and without intravenous gadolinium based contrast. FINDINGS: No images were obtained as the patient was unable to cooperate for the exam. Impression: No images were obtained as the patient was unable to cooperate for the exam. MACRO: None Signed by: Kong Armijo 12/12/2024 1:18 PM Dictation workstation: [id number] CT pelvis w IV contrast [[id number]] Collected: 12/06/24 1324 Order Status: Completed Updated: [...] Complexity: follow up within 7-14 calendar days (65412) [] Severe Complexity: follow up within 7 calendar days (69242) FOLLOW UP TESTING, PENDING RESULTS OR REFERRALS [...] oxy 5 mg one time dose order [facility] 12-24-2024 Nurse Note See new oxy 5 mg one time dose order Attending secure chatted due to patient asking for PRN pain meds with soft BP's. Awaiting answer Called and this nurse gave report to Lori NEWTON for patient. P/U time still 1230. Patient updated. Call received from . Patient has bed waiting at [facility] room [facility]. Nurse to nurse report number [phone]. Social work to arrange transportation in AM. Patient notified documented in this encounter [facility] 12-24-2024 Nurse Note Attending secure chatted due to patient asking for PRN pain meds with soft BP's. Awaiting answer [facility] 12-24-2024 Nurse Note Called and this nurse gave report to Lori NEWTON for patient. P/U time still 1230. Patient updated. [facility] 12-24-2024 Note Pharmacy to Dose Van comycin - Progress Note Lab Results Component Value Date CREATININE 1.04 12/24/2024 BUN 7 (L) 12/24/2024 WBC 14.8 (H) 12/24/2024 Doses, serum creatinine, and vancomycin levels interfaced automatically to Uro Jock and data has been analyzed and interpreted. [...] Alberto GarciaD Clinical Pharmacist Available via Secure [employer] [facility] 12-24-2024 Plan of care note Problem: [...] 12/23/20242013 by Diana Wise RN Outcome: Progressing [facility] 12-24-2024 Nurse Note Call received from . Patient has bed waiting at [facility] room [facility]. Nurse to nurse report number [phone]. Social work to arrange transportation in AM. Patient notified [facility] 12-23-2024 Plan of care note Problem: Knowledge [...] monitored and maintained or improved Outcome: Progressing [facility] 12-23-2024 Consult note Associated Order (s): INPATIENT [...] hip and hidradenitis suppurativa who presented to [facility] 12/22 from [facility] for increased drainage and malodor of L hip wound. He is awaiting transfer to [facility]. Of note, patient recently hospitalized at 12/07 - 12/17 and was discharged to [facility] on Augmentin through 01/12. He had [...] Resource Strain: Medium Risk (12/07/2024) Received from [facility] Overall Financial Resource Strain (CARDIA) Difficulty of Paying Living Expenses: Somewhat hard Food Insecurity: No Food Insecurity (12/07/2024) Received from [facility] Hunger Vital Sign Worried About Running Out of Food in the Last Year: Never true Ran Out of Food in the Last Year: Never true Recent Concern: Food Insecurity - Food Insecurity Present (10/11/2024) Received from [facility] Hunger Vital Sign Worried About Running Out of Food in the Last Year: Sometimes true Ran Out of Food in the Last Year: Sometimes true Transportation Needs: No Transportation Needs (12/07/2024) Received from [facility] PRAPARE - Transportation Lack of Transportation (Medical): No Lack of Transportation (Non-Medical): No Physical Activity: Not on file Stress: Not on file Social Connections: Not on file Intimate Partner Violence: Not At Risk (12/07/2024) Received from [facility] Humiliation, Afraid, Rape, and Kick questionnaire Fear of Current or Ex-Partner: No Emotionally Abused: No Physically Abused: No Sexually Abused: No Housing Stability: High Risk (12/07/2024) Received from [facility] Housing Stability Vital Sign Unable to Pay [...] Normal [] Scar/Lesion/Mass Inspection of teeth/lips/gums Dentition: [][place] Teeth []Dentures Lips/Gums: [x]Intact []Lesion Present Mucosa: [x][place] []Moist []Dry Neck: External Appearance Overall Appearance: [...] 17.3* ABGs: No results for input(s): PHART, KWC5YKU, PO2ART, NXE3TSY, SO2ART, W6VALKKC in the last 72 hours. Lactic Acid: [...] Patient stable for GMF, awaiting transfer to [facility] Re-check lactic acid, BMP to monitor hypercalcemia Recommend continuing broad spectrum Vancomycin and Zosyn, pending wound and blood cultures Recommending continuing current pain regimen Remainder per primary service GI Prophylaxis: N/A DVT Prophylaxis: Lovenox 40 q 24hr - creatinine clearance >30 BMI Classification: Body mass index is 22.19 kg/m . normal BMI 18.5-24.9 Disposition: Stable for GMF, awaiting transfer to [facility] Cosigned by Noah Stewart DO at 12/23/2024 7:11 PM EDT Associated attestation - Noah Stewart DO - 12/23/2024 7:11 PM EDT I have personally performed a blis-se-bnbx diagnostic evaluation on this patient on date of service 12/23/24. History, labs, imaging studies, and electronic medical record have been reviewed by me. This note documented by the []Critical Care Fellow [x]greenhouse superintendent []BRITTNEY reflects my history, exam, and medical decision making. I have reviewed and agree with the care plan. Changes were made in the orders as necessary. ROS documentation was reviewed and negative unless otherwise stated in HPI. Additional pertinent interval history, ROS, and physical exam findings: AdmitDate = 12/22/2024 LOS: 0 Brought to ER from [facility] with concern for worsening left hip wound [...] other team members and physicians, excluding procedures. [facility] [place] Work Phone: 12-23-2024 Consult note Associated Order [...] hip and hidradenitis suppurativa who presented to [facility] 12/22 from [facility] for increased drainage and malodor of L hip wound. He is awaiting transfer to [facility]. Of note, patient recently hospitalized at 12/07 - 12/17 and was discharged to [facility] on Augmentin through 01/12. He had [...] Resource Strain: Medium Risk (12/07/2024) Received from [facility] Overall Financial Resource Strain (CARDIA) Difficulty of Paying Living Expenses: Somewhat hard Food Insecurity: No Food Insecurity (12/07/2024) Received from [facility] Hunger Vital Sign Worried About Running Out of Food in the Last Year: Never true Ran Out of Food in the Last Year: Never true Recent Concern: Food Insecurity - Food Insecurity Present (10/11/2024) Received from [facility] Hunger Vital Sign Worried About Running Out of Food in the Last Year: Sometimes true Ran Out of Food in the Last Year: Sometimes true Transportation Needs: No Transportation Needs (12/07/2024) Received from [facility] PRAPARE - Transportation Lack of Transportation (Medical): No Lack of Transportation (Non-Medical): No Physical Activity: Not on file Stress: Not on file Social Connections: Not on file Intimate Partner Violence: Not At Risk (12/07/2024) Received from [facility] Humiliation, Afraid, Rape, and Kick questionnaire Fear of Current or Ex-Partner: No Emotionally Abused: No Physically Abused: No Sexually Abused: No Housing Stability: High Risk (12/07/2024) Received from [facility] Housing Stability Vital Sign Unable to Pay [...] Normal [] Scar/Lesion/Mass Inspection of teeth/lips/gums Dentition: [][place] Teeth []Dentures Lips/Gums: [x]Intact []Lesion Present Mucosa: [x][place] []Moist []Dry Neck: External Appearance Overall Appearance: [...] 17.3* ABGs: No results for input(s): PHART, MZP3DLC, PO2ART, KGJ6AAQ, SO2ART, M2BKHYEJ in the last 72 hours. Lactic Acid: [...] Patient stable for GMF, awaiting transfer to [facility] Re-check lactic acid, BMP to monitor hypercalcemia Recommend continuing broad spectrum Vancomycin and Zosyn, pending wound and blood cultures Recommending continuing current pain regimen Remainder per primary service GI Prophylaxis: N/A DVT Prophylaxis: Lovenox 40 q 24hr - creatinine clearance >30 BMI Classification: Body mass index is 22.19 kg/m . normal BMI 18.5-24.9 Disposition: Stable for GMF, awaiting transfer to [facility] Cosigned by Noah Stewart DO at 12/23/2024 7:11 PM EDT Associated attestation - Noah Stewart DO - 12/23/2024 7:11 PM EDT I have personally performed a zdxn-ug-plwe diagnostic evaluation on this patient on date of service 12/23/24. History, labs, imaging studies, and electronic medical record have been reviewed by me. This note documented by the []Critical Care Fellow [x]greenhouse superintendent []BRITTNEY reflects my history, exam, and medical [...] physicians, excluding procedures. documented in this encounter [facility] 12-23-2024 Emergency department Note RN informed patient admitting team of patient b/p . Pt on the monitor. Pt declined feeling dizzy or nauseous. Pt want pants, RN is looking for pants [facility] 12-23-2024 Emergency department Note RN informed patient [...] stable. Patient asymptomatic. Report given to Parish NWETON Dressing change completed with ABD pads, 2x2s and tape. Pt repostioned and saturated chucks removed Messaged pharmacy regarding missing vancomycin dose Report given to Mary NEWTON for lunch coverage Images from the original note were not included. HPI Chief Complaint Patient presents with Wound Infection Pt arrives by life care from [facility] in [place], per life care pt has had wound [...] his facility about a week ago from [facility] as he has SCC treating with [...] typical urinary output. History provided by: Patient vial gauger used: No INFORMED PHOTO CONSENT: The patient has given verbal consent to have photos taken of left hip and inserted into their provider note as a part of their permanent medical record for purposes of documentation, treatment management, and/or medical review. All images taken were transmitted and stored on a secure [employer] located within a Media Folder Tab by a registered [employer] Application Device. See Media tab in Epic [...] HENT: Head: Normocephalic and atraumatic. Mouth/Throat: Lips: [place]. Mouth: Mucous membranes are moist. Cardiovascular: Rate [...] Procedure Abnormality Status --------- ------ Culture, Aerobic Bacteri...[[id number]] In process Anaerobic culture[[id number]] In process Please view results for these tests on the individual orders. CULTURE, AEROBIC BACTERIA WITH GRAM STAIN CULTURE ANAEROBIC COMPLETE URINALYSIS WITH REFLEX TO CULTURE Narrative: The following orders were created for panel order Urinalysis Complete with reflex to Culture. Procedure Abnormality Status --------- ------ Complete Urinalysis[[id number]] Normal Final result Please view results for these tests on the individual orders. Encounter Date: 12/06/24 ECG 12 lead Result Value Heart Rate 58 QRSD Interval 94 QT Interval 397 QTC Interval 390 P [place] 44 QRS [place] 55 T Wave [place] 56 [place] Interval 142 Impression Sinus bradycardia Electronically Signed On 12-06-2024 11:47:13 EDT by Fer Hollins ED Course & MDM Medical Decision Making Presents to the emergency department for a worsening malodorous wound to his left hip that was recently treated at [facility]. He is failing outpatient antibiotic therapy of [...] by Dr. Mcfarlane for the MICU at [facility] [MJ] ED Course User Index [MJ] Levi [...] made to ensure accuracy; however, inadvertent computerized feeder switchboard operator errors may be present.* TRAVIS Verduzco 12/22/24 RANDALL Verduzco CNP 12/22/24 3696 Cosigned by Levi Mack DO at 12/22/2024 6:43 PM EDT Emergency Department Encounter [facility] EMERGENCY DEPT Patient: Kevan La : [...] toward the left greater trochanter. He is residential had reported that he is currently on chemotherapy. He was hospitalized recently due to concerns of an abscess and had this managed by general surgery at [facility]. He receives most of his care for hidradenitis suppurativa at and is requesting to be transferred given that they are familiar with his care. Believe this is appropriate due to patient will require further evaluation by the surgery and primary team taking care of his chronic wound. We will continue IV antibiotics and IV pressors and transfer patient to [facility] for management. Diagnostics interpreted [...] procedures or time spent by the physicians language assistant if they were caring for this patient. [...] for clarification.) Levi Mack DO Acute Care [employer] Levi Mack DO 12/22/24 1730 Levi Mack [...] 16 hours now. We reached out to [facility] and they stated that there would not [...] fluid responsive. I reached back out to [facility] to get him accepted to a regular nursing floor. I spoke with Dr Benitez at [facility] who accepted the patient to the regular nursing floor but they will still not have beds until most likely later this afternoon so will plan to admit him here medically so that the can be under the supervision and care of a hospitalist. Admitted in stable condition. Mary Calvert MD 12/23/24 0629 documented in this encounter [facility] 12-23-2024 Emergency department Note Pt moved into inpatient bed. Pt on the monitor. [facility] 12-23-2024 Emergency department Note Report given to Sunni NEWTON [facility] 12-23-2024 History and physical note Attending History [...] Required levophed but is now off of. [facility] accepted him but waiting on bed until later this afternoon. He was boarded in our ED for 16hrs. Seen at bedside. Wounds are foul smelling. Pt states he was dropped off here from [facility] as it was the closest hospital. All [...] Resource Strain: Medium Risk (12/07/2024) Received from [facility] Overall Financial Resource Strain (CARDIA) Difficulty of Paying Living Expenses: Somewhat hard Food Insecurity: No Food Insecurity (12/07/2024) Received from [facility] Hunger Vital Sign Worried About Running Out of Food in the Last Year: Never true Ran Out of Food in the Last Year: Never true Recent Concern: Food Insecurity - Food Insecurity Present (10/11/2024) Received from [facility] Hunger Vital Sign Worried About Running Out of Food in the Last Year: Sometimes true Ran Out of Food in the Last Year: Sometimes true Transportation Needs: No Transportation Needs (12/07/2024) Received from [facility] PRAPARE - Transportation Lack of Transportation (Medical): No Lack of Transportation (Non-Medical): No Physical Activity: Not on file Stress: Not on file Social Connections: Not on file Intimate Partner Violence: Not At Risk (12/07/2024) Received from [facility] Humiliation, Afraid, Rape, and Kick questionnaire Fear of Current or Ex-Partner: No Emotionally Abused: No Physically Abused: No Sexually Abused: No Housing Stability: High Risk (12/07/2024) Received from [facility] Housing Stability Vital Sign Unable to Pay [...] transfer to when bed available were his production team member, 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 Holding off [...] - DO NOT do CPR, intubation] [_] [DNR-STORE GROUP MANAGER - Comfort care only] [_] DNR form [...] Clarita Hay DO Division of Hospitalist Medicine [facility] [employer] Phone: 12-23-2024 Note Attending History an d [...] Required levophed but is now off of. [facility] accepted him but waiting on bed until later this afternoon. He was boarded in our ED for 16hrs. Seen at bedside. Wounds are foul smelling. Pt states he was dropped off here from [facility] as it was the closest hospital. All [...] Resource Strain: Medium Risk (12/07/2024) Received from [facility] Overall Financial Resource Strain (CARDIA) Difficulty of Paying Living Expenses: Somewhat hard Food Insecurity: No Food Insecurity (12/07/2024) Received from [facility] Hunger Vital Sign Worried About Running Out of Food in the Last Year: Never true Ran Out of Food in the Last Year: Never true Recent Concern: Food Insecurity - Food Insecurity Present (10/11/2024) Received from [facility] Hunger Vital Sign Worried About Running Out of Food in the Last Year: Sometimes true Ran Out of Food in the Last Year: Sometimes true Transportation Needs: No Transportation Needs (12/07/2024) Received from [facility] PRAPARE - Transportation Lack of Transportation (Medical): No Lack of Transportation (Non-Medical): No Physical Activity: Not on file Stress: Not on file Social Connections: Not on file Intimate Partner Violence: Not At Risk (12/07/2024) Received from [facility] Humiliation, Afraid, Rape, and Kick questionnaire Fear of Current or Ex-Partner: No Emotionally Abused: No Physically Abused: No Sexually Abused: No Housing Stability: High Risk (12/07/2024) Received from [facility] Housing Stability Vital Sign Unable to Pay [...] Negative for fever, (more content not included)... [facility] 12-23-2024 History and physical note Attending [...] Required levophed but is now off of. [facility] accepted him but waiting on bed until later this afternoon. He was boarded in our ED for 16hrs. Seen at bedside. Wounds are foul smelling. Pt states he was dropped off here from [facility] as it was the closest hospital. All [...] Resource Strain: Medium Risk (12/07/2024) Received from [facility] Overall Financial Resource Strain (CARDIA) Difficulty of Paying Living Expenses: Somewhat hard Food Insecurity: No Food Insecurity (12/07/2024) Received from [facility] Hunger Vital Sign Worried About Running Out of Food in the Last Year: Never true Ran Out of Food in the Last Year: Never true Recent Concern: Food Insecurity - Food Insecurity Present (10/11/2024) Received from [facility] Hunger Vital Sign Worried About Running Out of Food in the Last Year: Sometimes true Ran Out of Food in the Last Year: Sometimes true Transportation Needs: No Transportation Needs (12/07/2024) Received from [facility] PRAPARE - Transportation Lack of Transportation (Medical): No Lack of Transportation (Non-Medical): No Physical Activity: Not on file Stress: Not on file Social Connections: Not on file Intimate Partner Violence: Not At Risk (12/07/2024) Received from [facility] Humiliation, Afraid, Rape, and Kick questionnaire Fear of Current or Ex-Partner: No Emotionally Abused: No Physically Abused: No Sexually Abused: No Housing Stability: High Risk (12/07/2024) Received from [facility] Housing Stability Vital Sign Unable to Pay [...] transfer to when bed available were his production team member, 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 Holding off [...] - DO NOT do CPR, intubation] [_] [DNR-STORE GROUP MANAGER - Comfort care only] [_] DNR form [...] Clarita Hay DO Division of Hospitalist Medicine [facility] documented in this encounter [facility] 12-23-2024 Emergency department Note Received report from Parish NEWTON [facility] 12-23-2024 Emergency department Note Levo drip turned off. BP 102/64. [facility] 12-22-2024 Emergency department Note Levo titrated to 2mcg/min. Patient BP remains stable. [facility] 12-22-2024 Emergency department Note Levo titrated to 4mcg/min. BP remains stable. Patient asymptomatic. [facility] 12-22-2024 Emergency department Note Levo titrated to 6mcg/min. BP remains stable. Patient asymptomatic. [facility] 12-22-2024 Emergency department Note Report given to Parish NEWTON [facility] 12-22-2024 Emergency department Note Dressing change completed with ABD pads, 2x2s and tape. Pt repostioned and saturated chucks removed [facility] 12-22-2024 Emergency department Note Messaged pharmacy regarding missing vancomycin dose [facility] 12-22-2024 Emergency department Note Report given to Mary NEWTON for lunch coverage [facility] 12-22-2024 Physician Emergency department Note Images from the original note were not included. HPI Chief Complaint Patient presents with Wound Infection Pt arrives by life care from [facility] in [place], [facility] life care pt has had wound infection [...] his facility about a week ago from [facility] as he has SCC treating with [...] typical urinary output. History provided by: Patient vial gauger used: No INFORMED PHOTO CONSENT: The patient has given verbal consent to have photos taken of left hip and inserted into their provider note as a part of their permanent medical record for purposes of documentation, treatment management, and/or medical review. All images taken were transmitted and stored on a secure [employer] located within a Media Folder Tab by a registered Tell[employer]ence Application Device. See Media tab in Epic or photo as below. [place] Coma Scale Score: 15 Patient History No [...] HENT: Head: Normocephalic and atraumatic. Mouth/Throat: Lips: [place]. Mouth: Mucous membranes are moist. Cardiovascular: Rate [...] Procedure Abnormality Status --------- ------ Culture, Aerobic Bacteri...[[id number]] In process Anaerobic culture[[id number]] In process Please view results for these tests on the individual orders. CULTURE, AEROBIC BACTERIA WITH GRAM STAIN CULTURE ANAEROBIC COMPLETE URINALYSIS WITH REFLEX TO CULTURE Narrative: The following orders were created for panel order Urinalysis Complete with reflex to Culture. Procedure Abnormality Status --------- ------ Complete Urinalysis[[id number]] Normal Final result Please view results for these tests on the individual orders. Encounter Date: 12/06/24 ECG 12 lead Result Value Heart Rate 58 QRSD Interval 94 QT Interval 397 QTC Interval 390 P [place] 44 QRS [place] 55 T Wave [place] 56 [place] Interval 142 Impression Sinus bradycardia Electronically Signed On 12-06-2024 11:47:13 EDT by Fer Hollins ED Course & MDM Medical Decision Making Presents to the emergency department for a worsening malodorous wound to his left hip that was recently treated at [facility]. He is failing outpatient antibiotic therapy of [...] by Dr. Mcfarlane for the MICU at [facility] [MJ] ED Course User Index [MJ] Levi Mack DO [NA] Ronna Leon, MORTAR MAN - SLOT MACHINE KEY PERSON Diagnoses as of 12/22/241822 Sepsis, due to [...] made to ensure accuracy; however, inadvertent computerized feeder switchboard operator errors may be present.* TRAVIS Verduzco 12/22/24 RANDALL Verduzco CNP 12/22/24 1759 Cosigned by Levi Mack DO at 12/22/2024 6:43 PM EDT [facility] 12-22-2024 Physician Emergency department Note Emergency Department [...] the entirety of this encounter. In brief, eKvan La is a 49 y.o. that presents [...] toward the left greater trochanter. He is residential had reported that he is currently on chemotherapy. He was hospitalized recently due to concerns of an abscess and had this managed by general surgery at [facility]. He receives most of his care for hidradenitis suppurativa at and is requesting to be transferred given that they are familiar with his care. Believe this is appropriate due to patient will require further evaluation by the surgery and primary team taking care of his chronic wound. We will continue IV antibiotics and IV pressors and transfer patient to [facility] for management. Diagnostics interpreted [...] procedures or time spent by the physicians language assistant if they were caring for this patient. [...] for clarification.) Levi Mack DO Acute Care [facility] Levi Mack DO 12/22/24 173 Levi Mack DO 12/22/24 175 [employer] Phone: 12-22-2024 Physician Emergency department Note Pt signed out to me by Dr. Mack. Pt is awaiting transfer to for septic shock in setting of left buttock wound. Mani Dc DO 12/23/24 0115 [employer] Phone: 12-22-2024 Physician Emergency department Note I [...] 16 hours now. We reached out to [facility] and they stated that there would not [...] fluid responsive. I reached back out to [facility] to get him accepted to a regular nursing floor. I spoke with Dr Benitez at [facility] who accepted the patient to the regular nursing floor but they will still not have beds until most likely later this afternoon so will plan to admit him here medically so that the can be under the supervision and care of a hospitalist. Admitted in stable condition. Mary Calvert MD 12/23/24628 [employer] 12-22-2024 Progress note Formatting of t his note might be different from the original. Culture reviewed. Awaiting sensitivity results [employer] Work Phone: 12-20-2024 History of Present illness [...] clinical picture. Sreedhar Jiang MD Attending Physician [facility] Casing In Line Setterwarehouse order puller [facility] [employer] documented in this encounter [facility] Work Phone: 12-19-2024 History of Present illness Narrative 12/09/24 1000 Discharge Planning Living Arrangements Other (Comment);Alone (admitted from [facility]) Support Systems Family members;Other (Comment) (SNF staff, SNF SW) Assistance Needed skilled, PT/OT Type of Residence shelter facility Do you have animals or pets at home? No Home or Post Acute Services Post acute facilities (Rehab/SNF/etc) (return to [facility]) Type of Post Acute Facility Services shelter Expected Discharge Disposition SNF Does the patient need discharge transport arranged? Yes RoundTrip coordination needed? Yes Has discharge transport been arranged? No Patient Choice Provider Choice list and [facility] website (https://medicare.gov/care-compar e#search) for post-acute Quality and Resource Measure Data were provided and reviewed with: Patient Patient / Family choosing to utilize agency / facility established prior to hospitalization Yes SW met with pt to introduce role and discuss discharge planning. Pt admitted from [facility]; pt reports that he's been there on and off since September. Pt confirmed demographic and insurance details. SW contact details written on the whiteboard in pt room. Return referral sent to [facility]. SW will follow. Fer Hidalgo [facility] 12/09/2024 1040 Per [facility], pt's current auth expires on 12/11. Further discharge planning pending updates from the care team. SW will follow. Fer Hidalgo [facility] 12/11/2024 1030 Pt auth for [facility] expires today. Clinical updates sent to facility. Further discharge planning pending updates from the care team. SW will follow. Fer Hidalgo [facility] 12/16/2024 0955 Once PT and OT see pt for updated notes, [facility] will initiate precert. SW will follow. Fer Hidalgo [facility] 12/17/2024 1030 PT and OT saw pt this morning. Clinicals and therapy notes sent to facility. Facility was notified to initiate precert for pt to return. Care team notified SW that pt reported he doesn't want to return to [facility]. SANTO met with pt to check in and he reports that he has been telling everyone for days that he would prefer not to return to [facility]. SANTO offered to give pt [...] for discharge. SW will follow. Fer Hidalgo [facility] 12/17/2024 1120 Per facility: Auth Submitted - Pending Reference # [id number] Liaison is confirming that there are no barriers to providing transport for pt's oncology appt on Monday. SW will follow. Fer Hidalgo [facility] 12/18/2024 1245 [facility] reports that pt insurance is asking for PT note and a wound care note. SW let the facility note that yesterday's PT note was sent to them yesterday and that a request would be put in for a new wound care note. SW will follow. Fer Hidalgo [facility] 12/18/2024 1540 Wound care note sent to facility via CarePort. SW will follow. Fer Hidalgo [facility] 12/19/2024 0920 Per facility: Auth has been approved - [id number] - 4.3.25 to 4. Care team notified. SW met with pt and let him know that he will discharge today. Transport requested in RoundTrip for 1100. SW asked facility to confirm that his transport for his oncology appt is set up. SW will follow. Fer Hidalgo [facility] 12/19/2024 1000 Transport confirmed for 1300 with [facility]. Care team, pt, and facility notified. Once received, number for report will be sent to bedside nurse. Pt requested to speak to a member of the care team; care team notified. SW will follow. Fer Hidalgo [facility] 12/19/2024 1015 Number for report is [phone] and was sent to bedside nurse. SW will follow. Fer Hidalgo [facility] Kevan La is a 49 y.o. male [...] medications to patient prior to discharge via [facility] pharmacy. Prescriptions will need to be sent 48-72 hours prior to discharge so that a prior authorization can be completed. Discharge date: unknown pending acute issues Patient has an appointment with Outpatient [facility] TRA[facility] Talavera 12/30/24 SIGNATURE: TRAVIS Rodas PAGER/CONTACT: Contact information: [facility] Monday-Monday 8 AM-5 PM [employer] Secure chat or pager [phone]. After hours and weekends: pager [phone] SUBJECTIVE: Interval Events: Pt reports pain is [...] UNK primary Family: Supportive though live in [place] Performance status: Moderate limitations due to pain Joys/meaning/strength: Family and Grannis Understanding of health: 12/08: Demonstrates good prognostic [...] Surrogate decision maker is brother Omkar La [phone] Signature and billing: Medical complexity was high [...] of shared electronic medical record/secure chat/email or [id number]. We will continue to follow Please contact us for additional questions or concerns. SIGNATURE: TRAVIS Rodas PAGER/CONTACT: Contact information: [facility] Monday-Monday 8 AM-5 PM [employer] Secure chat or pager [phone]. After hours and weekends: pager [phone] 12/09/24 1000 Discharge Planning Living Arrangements Other (Comment);Alone (admitted from [facility]) Support Systems Family members;Other (Comment) (SNF staff, SNF SW) Assistance Needed skilled, PT/OT Type of Residence shelter facility Do you have animals or pets at home? No Home or Post Acute Services Post acute facilities (Rehab/SNF/etc) (return to [facility]) Type of Post Acute Facility Services shelter Expected Discharge Disposition SNF Does the patient need discharge transport arranged? Yes RoundTrip coordination needed? Yes Has discharge transport been arranged? No Patient Choice Provider Choice list and [facility] website (https://medicare.gov/care-compar e#search) for post-acute Quality and Resource Measure Data were provided and reviewed with: Patient Patient / Family choosing to utilize agency / facility established prior to hospitalization Yes SW met with pt to introduce role and discuss discharge planning. Pt admitted from [facility]; pt reports that he's been there on and off since September. Pt confirmed demographic and insurance details. SW contact details written on the whiteboard in pt room. Return referral sent to [facility]. SW will follow. Fer Hidalgo [facility] 12/09/2024 1040 Per [facility], pt's current auth expires on 12/11. Further discharge planning pending updates from the care team. SW will follow. Fer Hidalgo [facility] 12/11/2024 1030 Pt auth for [facility] expires today. Clinical updates sent to facility. Further discharge planning pending updates from the care team. SW will follow. Fer Hidalgo [facility] 12/16/2024 0955 Once PT and OT see pt for updated notes, [facility] will initiate precert. SW will follow. Fer Hidalgo [facility] 12/17/2024 1030 PT and OT saw pt this morning. Clinicals and therapy notes sent to facility. Facility was notified to initiate precert for pt to return. Care team notified SW that pt reported he doesn't want to return to [facility]. SW met with pt to check in and he reports that he has been telling everyone for days that he would prefer not to return to [facility]. SW offered to give pt [...] for discharge. SW will follow. Fer Hidalgo [facility] 12/17/2024 1120 Per facility: Auth Submitted - Pending Reference # [id number] Liaison is confirming that there are no barriers to providing transport for pt's oncology appt on Monday. SW will follow. Fer Hidalgo [facility] 12/18/2024 1245 [facility] reports that pt insurance is asking for PT note and a wound care note. SW let the facility note that yesterday's PT note was sent to them yesterday and that a request would be put in for a new wound care note. SW will follow. Fer Hidalgo [facility] 12/18/2024 1540 Wound care note sent to facility via CarePort. SW will follow. [facility] Images from the original note were not included. Internal Medicine Daily Progress Note Subjective Interval events: NAEO. Pain stable not requiring IV pain meds. No other concerns or complaints at this time. Objective Vitals: Visit Vitals BP 96/66 Pulse 70 Temp 36.5 C (97.7 F) (Temporal) Resp 16 Intake/Output Summary (Last 24 hours) at 12/18/2024 0719 Last data filed at 12/18/2024 0507 Gross [...] Signs/Symptoms:r/o any dysphagia. COMPARISON: None. ACCESSION NUMBER(S): [id number] ORDERING CLINICIAN: GIBSON MENDIOLA TECHNIQUE: MBSS completed. Informed verbal consent obtained prior to completion of exam. Trials of thin, nectar thick, puree, and regular solids given. Fluoroscopy time : 1.8 minutes. Total of 2800 images were provided for review. 100 mL barium contrast. LACE TEARING SUPERVISOR: Makayla Dunham Phone/Pager: Immy SPEECH FINDINGS: Patient Name: Kevan La : 1975 Today's Date: 12/16/24 Start Time: 845 Stop Time: 915 Time Calculation (min): 30 min Modified Barium Swallow Study completed. Informed verbal consent obtained prior to completion of exam. Trials of thin liquid, mildly thick liquid, puree, and solids were given. LACE TEARING SUPERVISOR: MINDY Camp Contact info: [employer] Reason for Referral: C/f aspiration/oropharyngeal dysphagia Patient Hx: Kevan La is a 49 y.o. male with history of hidradenitis supprativa refractory to numerous medications, invasive SCC dx in Oct 2024 both affecting the LLE who was transferred to [facility] due to concerns for worsening infection in the LLE. Pt is stable with no s/s of systemic infection. High suspicion for necrotic oncologic mass over fluid collection. No indication for I&D. Requested outside images from [facility] op, recommend requesting radiology overread. Consider [...] eating Small bites/sips Alternate food and liquids LACE TEARING SUPERVISOR PLAN: Skilled LACE TEARING SUPERVISOR Services: Skilled LACE TEARING SUPERVISOR intervention for dysphagia is warranted. LACE TEARING SUPERVISOR Frequency: 2x per week Duration: 1-2 weeks [...] given on all accounts. Treatment Provided Today: LACE TEARING SUPERVISOR provided extensive education and training to pt/pt [...] further evaluation by medical specialists, as applicable. LACE TEARING SUPERVISOR Impressions with Severity Rating: Pt presenting with [...] obtained, suspect within normal limits for clearance LACE TEARING SUPERVISOR recommends cautious initiation of thin liquids and easy to chew diet. See additional PO intake guidelines outlined below. If pt demonstrates any change/decline in medical/mental/respiratory status please make NPO and alert LACE TEARING SUPERVISOR. Will continue to follow while in acute care setting to ensure diet tolerance and use of safe swallow guidelines. MD aware of recommendations Rosenbek's Penetration Aspiration Scale Thin Liquids: 3. PENETRATION with LOW ASPIRATION risk - contrast remains above vocal cords, visible residue [place] Thick Liquids: 3. PENETRATION with LOW ASPIRATION [...] Dilan Hester. This study was interpreted at [facility], [place], [place]. MACRO: None Signed by: Jayson Abdi 12/16/2024 4:54 PM Dictation workstation: [id number] Oncology Hx Diagnosis: Squamous cell carcinoma of [...] their tolerance level. Patient agreed to advise in store demonstrator. The in store demonstrator counseled the patient on the risks of [...] Signs/Symptoms:r/o any dysphagia. COMPARISON: None. ACCESSION NUMBER(S): [id number] ORDERING CLINICIAN: GIBSON MENDIOLA TECHNIQUE: MBSS completed. Informed verbal consent obtained prior to completion of exam. Trials of thin, nectar thick, puree, and regular solids given. Fluoroscopy time : 1.8 minutes. Total of 2800 images were provided for review. 100 mL barium contrast. LACE TEARING SUPERVISOR: Makayla Dunham Phone/Pager: Immy SPEECH FINDINGS: Patient Name: Kevan La : 1975 Today's Date: 12/16/24 Start Time: 845 Stop Time: 915 Time Calculation (min): 30 min Modified Barium Swallow Study completed. Informed verbal consent obtained prior to completion of exam. Trials of thin liquid, mildly thick liquid, puree, and solids were given. LACE TEARING SUPERVISOR: MINDY Camp Contact info: [employer] Reason for Referral: C/f aspiration/oropharyngeal dysphagia Patient Hx: Kevan La is a 49 y.o. 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 LACE TEARING SUPERVISOR Frequency: 2x per week Duration: 1-2 weeks [...] given on all accounts. Treatment Provided Today: LACE TEARING SUPERVISOR provided extensive education and training to pt/pt [...] further evaluation by medical specialists, as applicable. LACE TEARING SUPERVISOR Impressions with Severity Rating: Pt presenting with [...] obtained, suspect within normal limits for clearance LACE TEARING SUPERVISOR recommends cautious initiation of thin liquids and easy to chew diet. See additional PO intake guidelines outlined below. If pt demonstrates any change/decline in medical/mental/respiratory status please make NPO and alert LACE TEARING SUPERVISOR. Will continue to follow while in acute care setting to ensure diet tolerance and use of safe swallow guidelines. MD aware of recommendations Rosenbek's Penetration Aspiration Scale Thin Liquids: 3. PENETRATION with LOW ASPIRATION risk - contrast remains above vocal cords, visible residue [place] Thick Liquids: 3. PENETRATION with LOW ASPIRATION [...] Dilan Hester. This study was interpreted at [facility], [place], [place]. MACRO: None Signed by: Jayson Abdi 12/16/2024 4:54 PM Dictation workstation: [id number] ECG 12 Lead Result Date: 12/16/2024 Normal [...] 12/06/2024 and 11/19/2024 CT examinations. ACCESSION NUMBER(S): [id number] ORDERING CLINICIAN: GIBSON MENDIOLA TECHNIQUE: Multiplanar multisequence [...] Kong Armijo 12/12/2024 1:33 PM Dictation workstation: [id number] MR femur left wo IV contrast Result Date: 12/12/2024 Interpreted By: Kong Armijo, and Mason Montague STUDY: MRI of the left femur with and without contrast dated 12/10/2024. 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 History of chronic hidradenitis suppurativa. COMPARISON: Correlation is made with 12/06/2024 and 11/19/2024 CT examinations. ACCESSION NUMBER(S): [id number] ORDERING CLINICIAN: TOYA RUBIO TECHNIQUE: Multiplanar multisequence MRI of the left femur was performed with and without intravenous gadolinium based contrast. FINDINGS: No images were obtained as the patient was unable to cooperate for the exam. No images were obtained as the patient was unable to cooperate for the exam. MACRO: None Signed by: Kong Armijo 12/12/2024 1:18 PM Dictation workstation: [id number] CT pelvis w IV contrast Result Date: [...] carcinoma. COMPARISON: CT pelvis 11/08/2024. ACCESSION NUMBER(S): [id number] ORDERING CLINICIAN: CLAUDIO PLUNKETT TECHNIQUE: CT of the chest, abdomen, and pelvis was performed. Contiguous axial images were obtained at 3 mm slice thickness through the chest, abdomen and pelvis. Coronal and sagittal reconstructions at 3 mm slice thickness were performed. 90 ML of Omnipaque 350 was administered intravenously without immediate complication. FINDINGS: CHEST: LUNG/PLEURA/LARGE AIRWAYS: Ubll-dg-cemdphdn upper lobe predominant centrilobular and paraseptal emphysema. [...] Attention on follow-up examinations is recommended. 5. Jfkt-efnmdxr-skhg-right skin thickening extending from the sacral region to the proximal thigh, in keeping with patient's background of hydradenitis suppurativa. 6. Cjwf-xw-ucttoien upper lobe predominant centrilobular and paraseptal emphysema. I personally reviewed the images/study and I agree with the findings as stated by Elenita Munroe MD (PGY-2). This study was interpreted at [facility], [place], [place]. MACRO: None Signed by: Ravin Hyatt 11/19/2024 4:54 PM Dictation workstation: [id number] Assessment/Plan Assessment & Plan Gluteal abscess [facility] Integrative Medicine Symptom Management program [...] (available on ). Music therapy, art therapy, news content specialist and pet therapy offered to pt, pt declined; pt stated the levee superintendent has been following. Left gluteal pain: pain related to malignancy, lesions Pain is well-controlled Defer to supportive oncology team for adequate PO/IV pain regimen Recommend integrative therapy modalities as pt allows: -Acupuncture; provided pt education today. Pt declined services, requesting follow up when next available -Acupressure, stefa sha -Gentle bodywork and stretching as tolerated -Art therapy -Music therapy -Bioprocessing Manufacturing Technician -Pet therapy Altered Mood: Anxiety and/or depression r/t health concerns History of anxiety/depression -Recommend integrative medicine modalities as listed above Mindfulness Brittney: AMDtx, Calm, Headspace, Insight Timer Guided Imagery Meditation (15 min in the morning) - consider mindfulness (Mindfulness based Stress Reduction) Apps such as CALM or Headspace Deep breathing: Alternate nostril breathing and Deep abdominal breathing (5 min) in the morning [facility] - Guided Meditation Thank you for allowing us to participate in the care of this patient. Integrative Medicine Team will continue to follow as needed. Please contact team with any questions or concerns. TRAVIS Patel (available by Humouno) [facility] Integrative Medicine I spent 45 minutes in the care of this patient which included chart review, interviewing patient/family, discussion with primary team, coordination of care, and documentation. Medical Decision Making was high level due to high complexity of problems, extensive data review, and high risk of management/treatment. 12/09/24 1000 Discharge Planning Living Arrangements Other (Comment);Alone (admitted from [facility]) Support Systems Family members;Other (Comment) (SNF staff, SNF SW) Assistance Needed skilled, PT/OT Type of Residence shelter facility Do you have animals or pets at home? No Home or Post Acute Services Post acute facilities (Rehab/SNF/etc) (return to [facility]) Type of Post Acute Facility Services shelter Expected Discharge Disposition SNF Does the patient [...] and discuss discharge planning. Pt admitted from [facility]; pt reports that he's been there on and off since September. Pt confirmed demographic and insurance details. SW contact details written on the whiteboard in pt room. Return referral sent to [facility]. SW will follow. Fer Hidalgo [facility] 12/09/2024 1040 Per [facility], pt's current auth expires on 12/11. Further discharge planning pending updates from the care team. SW will follow. Fer Hidalgo [facility] 12/11/2024 1030 Pt auth for [facility] expires today. Clinical updates sent to facility. Further discharge planning pending updates from the care team. SW will follow. Fer Hidalgo [facility] 12/16/2024 0955 Once PT and OT see pt for updated notes, [facility] will initiate precert. SW will follow. Fer Hidalgo [facility] 12/17/2024 1030 PT and OT saw pt this morning. Clinicals and therapy notes sent to facility. Facility was notified to initiate precert for pt to return. Care team notified SW that pt reported he doesn't want to return to [facility]. SW met with pt to check in and he reports that he has been telling everyone for days that he would prefer not to return to [facility]. SW offered to give pt a SNF [...] for discharge. SW will follow. Fer Hidalgo [facility] 12/17/2024 1120 Per facility: Auth Submitted - Pending Reference # [id number] Liaison is confirming that there are no barriers to providing transport for pt's oncology appt on Monday. SANTO will follow. Fer Hidalgo [facility] Physical Therapy Treatment Patient Name: Kevan La Today's Date: 12/17/2024 Room: [address] [place] [address] Time Calculation Start Time: 938 Stop Time: [...] Decreased tolerance for upright activites Outcome Measures: [facility] Basic Mobility Turning from your back [...] Explanation Response: Verbalizes Understanding Precautions, taught by Elahm Prado PTA at 12/17/2024 10:22 AM. Learner: [...] Kevan La : 1975 Date: 12/17/24 Room: [address] [place] [address] Time Calculation Start Time: 850 Stop Time: [...] Comments: BUE WFL via ADLs Outcome Measures: [facility] Daily Activity Putting on and taking [...] 12/17/24 at 10:18 AM Manuela Elmore OTR/L [phone] Images from the original note were not [...] Signs/Symptoms:r/o any dysphagia. COMPARISON: None. ACCESSION NUMBER(S): [id number] ORDERING CLINICIAN: GIBSON MENDIOLA TECHNIQUE: MBSS completed. Informed verbal consent obtained prior to completion of exam. Trials of thin, nectar thick, puree, and regular solids given. Fluoroscopy time : 1.8 minutes. Total of 2800 images were provided for review. 100 mL barium contrast. LACE TEARING SUPERVISOR: Makayla Dunham Phone/Pager: Secure Chat SPEECH FINDINGS: Patient Name: Kevan La : 1975 Today's Date: 12/16/24 Start Time: 845 Stop Time: 915 Time Calculation (min): 30 min Modified Barium Swallow Study completed. Informed verbal consent obtained prior to completion of exam. Trials of thin liquid, mildly thick liquid, puree, and solids were given. LACE TEARING SUPERVISOR: MINDY Camp Contact info: [employer] Reason for Referral: C/f aspiration/oropharyngeal dysphagia Patient Hx: Kevan La is a 49 y.o. 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 LACE TEARING SUPERVISOR Frequency: 2x per week Duration: 1-2 weeks [...] given on all accounts. Treatment Provided Today: LACE TEARING SUPERVISOR provided extensive education and training to pt/pt [...] further evaluation by medical specialists, as applicable. LACE TEARING SUPERVISOR Impressions with Severity Rating: Pt presenting with [...] obtained, suspect within normal limits for clearance LACE TEARING SUPERVISOR recommends cautious initiation of thin liquids and easy to chew diet. See additional PO intake guidelines outlined below. If pt demonstrates any change/decline in medical/mental/respiratory status please make NPO and alert LACE TEARING SUPERVISOR. Will continue to follow while in acute care setting to ensure diet tolerance and use of safe swallow guidelines. aware of recommendations [place]'s Penetration Aspiration Scale Thin Liquids: 3. PENETRATION with LOW ASPIRATION risk - contrast remains above vocal cords, visible residue [place] Thick Liquids: 3. PENETRATION with LOW ASPIRATION [...] Dilan Hester. This study was interpreted at [place], [place]. MACRO: None Signed by: Jayson Abdi 12/16/2024 4:54 PM Dictation workstation: [id number] Oncology Hx Diagnosis: Squamous cell carcinoma of [...] Communication Note Patient Name: Kevan La Department: [facility] Room: [address] [place] [address] Today's Date: 12/16/2024 Discipline: Physical Therapy PT Missed Visit: Yes Missed Visit Reason: Missed Visit Reason: Patient sleeping (attempted twice and pt sleeping . would not wake up to name . Will reattempt as schedule permits.) Missed Time: Attempt Comment: Occupational Therapy Therapy Communication Note Patient Name: Kevan La Department: [facility] Room: [address] [place] [address] Today's Date: 12/16/2024 Discipline: Occupational Therapy OT Missed Visit: Yes Missed Visit Reason: Patient sleeping (Attempt 2x this AM; pt in sound sleep/declines OT this AM; will reattempt as schedule permits) Missed Time: Attempt Janny Andres (OTR/L, OTD) Inpatient Occupational Therapist Rehab Office: [phone] 12/09/24 1000 Discharge Planning Living Arrangements Other (Comment);Alone (admitted from [facility]) Support Systems Family members;Other (Comment) (SNF staff, SNF SW) Assistance Needed skilled, PT/OT Type of Residence shelter facility Do you have animals or pets at home? No Home or Post Acute Services Post acute facilities (Rehab/SNF/etc) (return to [facility]) Type of Post Acute Facility Services shelter Expected Discharge Disposition SNF Does the patient need discharge transport arranged? Yes RoundTrip coordination needed? Yes Has discharge transport been arranged? No Patient Choice Provider Choice list and [facility] website (https://medicare.gov/care-compar e#search) for post-acute Quality and Resource Measure Data were provided and reviewed with: Patient Patient / Family choosing to utilize agency / facility established prior to hospitalization Yes SW met with pt to introduce role and discuss discharge planning. Pt admitted from [facility]; pt reports that he's been there on and off since September. Pt confirmed demographic and insurance details. SW contact details written on the whiteboard in pt room. Return referral sent to [facility]. SW will follow. Fer [facility] 12/09/2024 1040 Per [facility], pt's current auth expires on 12/11. Further discharge planning pending updates from the care team. SW will follow. Fer Hidal[facility] 12/11/2024 1030 Pt auth for [facility] expires today. Clinical updates sent to facility. Further discharge planning pending updates from the care team. SW will follow. Fer Hidalgo [facility] 12/16/2024 0955 Once PT and OT see pt for updated notes, [facility] will initiate precert. SW will follow. Fer Hidalgo [facility] SUPPORTIVE AND PALLIATIVE ONCOLOGY INPATIENT FOLLOW-UP SERVICE DATE: 12/16/24 Updates and Recommendations (12/16/24): Change gabapentin 300mg PO BID Continue scheduled methadone 10mg v1f--expcwec 12/12/24, eligible for increase 12/17/24 Discontinue bisacodyl PRN Start scheduled bisacodyl 10mg KS once daily Consider one time enemas as [...] 2mg PO TID Continue scheduled methadone 10mg h5g--csphcnk 12/12/24, eligible for increase 12/17/24 Continue oxycodone [...] Discontinue bisacodyl PRN Start scheduled bisacodyl 10mg KS once daily Consider one time enemas as needed, per primary discretion [effective last admission at resolving constipation] Goal to have BM without straining q48-72h, adjust regimen as needed Encourage mobility as tolerated, PT/OT following Disposition: Please start the process of having prior authorization with meds to beds deliver medications to patient prior to discharge via [facility] pharmacy. Prescriptions will need to be sent 48-72 hours prior to discharge so that a prior authorization can be completed. Discharge date pending resolution of acute hospital issues. Patient has an appointment with outpatient Supportive Oncology with Astrid Hawley CNP, on 12/30/24. SIGNATURE: Jami Lance APRN-NEHAL PAGER/CONTACT: Contact information: Supportive and Palliative Oncology Monday-Monday 8 AM-5 PM [employer] Secure chat or pager [phone]. After hours and weekends: pager [phone] == SUBJECTIVE: Pain Assessment: Location: Left gluteus, LLE Duration: Constant Characteristics: Ratin/10, it's alright Descriptors: Throbbing, sharp, and burning Aggravating: Movement, pressure Relieving: Analgesics, positioning, and modifying activity Interference with Function: Somewhat Opioid Requirements Past 24h opioid requirements: (12/15-12/16, [phone]) methadone 10mg x 3 = 30mg oxycodone [...] of Care/Advance Care Planning: (Per Emile Segovia, SLOT MACHINE KEY PERSON's, note on 12/08/24) Patient's current clinical condition, including diagnosis, prognosis, and management plan, and goals of care were discussed. Life limiting disease: SCC of UNK primary Family: Supportive though live in [place] Performance status: Moderate limitations due to pain Joys/meaning/strength: Family and Grannis Understanding of health: Demonstrates good prognostic understanding [...] Decision maker: Surrogate decision maker is brotherOmkar ([phone]) == Signature and billing: Medical complexity was [...] of shared electronic medical record/secure chat/email or [id number]. We will continue to follow. Please contact us for additional questions or concerns. SIGNATURE: TRAVIS Huizar PAGER/CONTACT: Contact information: [facility] Palliative Oncology Monday-Monday 8 AM-5 PM, [employer] chat or pager [phone]. After hours and weekends: pager [phone] Images from the original note were not [...] days course) - MBS complete, no concerns. LACE TEARING SUPERVISOR recommends thin and easy to chew - [...] physical exam or was physically present for ogmez and critical portions performed by the resident/fellow. [...] affecting the LLE who was transferred to [facility] due to concerns for worsening infection in [...] region. No s/s of aspiration at bedside. LACE TEARING SUPERVISOR recommends thin liquid and easy to chew [...] 01/15/25 Status: Goal Initiated this date Plan: LACE TEARING SUPERVISOR Services Indicated: Yes Frequency: 2x week Discussed POC with patient LACE TEARING SUPERVISOR - OK to Discharge Pain: 0-10 0 [...] 12/06/2024 and 11/19/2024 CT examinations. ACCESSION NUMBER(S): [id number] ORDERING CLINICIAN: GIBSON MENDIOLA TECHNIQUE: Multiplanar multisequence [...] Kong Armijo 12/12/2024 1:33 PM Dictation workstation: [id number] Oncology Hx Diagnosis: Squamous cell carcinoma of [...] OT Treatment Patient Name: Kevan La Department: [facility] Room: [address] [place] [address]- Today's Date: 12/13/2024 Time Calculation Start Time: [...] of Assistance 2: Contact guard Outcome Measures: [facility] Daily Activity Putting on and taking [...] (OTR/L, OTD) Inpatient Occupational Therapist Rehab Office: [phone] Images from the original note were not [...] 12/06/2024 and 11/19/2024 CT examinations. ACCESSION NUMBER(S): [id number] ORDERING CLINICIAN: GIBSON MENDIOLA TECHNIQUE: Multiplanar multisequence [...] Kong Armijo 12/12/2024 1:33 PM Dictation workstation: [id number] Oncology Hx Diagnosis: Squamous cell carcinoma of [...] bit brighter,today . Eating lunch and playing Virgancee Hip lesion unchanged Antibiotics amoxicillin-pot clavulanate - [...] medications to patient prior to discharge via [facility] pharmacy. Prescriptions will need to be sent 48-72 hours prior to discharge so that a prior authorization can be completed. Discharge date: unknown pending acute issues Patient has an appointment with Outpatient Supportive Oncology TRAVIS Talavera 12/17/24 SIGNATURE: TRAVIS Rodas PAGER/CONTACT: Contact information: [facility]cology Monday-Monday 8 AM-5 PM [employer] Secure chat or pager [phone]. After hours and weekends: pager [phone] SUBJECTIVE: Interval Events: Pt was able to [...] UNK primary Family: Supportive though live in [place] Performance status: Moderate limitations due to pain Joys/meaning/strength: Family and Grannis Understanding of health: 12/08: Demonstrates good prognostic [...] Surrogate decision maker is brother Omkar La [phone] Signature and billing: Medical complexity was high [...] of shared electronic medical record/secure chat/email or [id number]. We will continue to follow Please contact us for additional questions or concerns. SIGNATURE: TRAVIS Rodas PAGER/CONTACT: Contact information: [facility] Monday-Monday 8 AM-5 PM [employer] Secure chat or pager [phone]. After hours and weekends: pager [phone] Images from the original note were not [...] 12/06/2024 and 11/19/2024 CT examinations. ACCESSION NUMBER(S): [id number] ORDERING CLINICIAN: GIBSON MENDIOLA TECHNIQUE: Multiplanar multisequence [...] Kong Armijo 12/12/2024 1:33 PM Dictation workstation: [id number] MR femur left wo IV contrast Result Date: 12/12/2024 Interpreted By: Kong Armijo and Lawrence Austen STUDY: MRI of the left femur with and without contrast dated 12/10/2024. 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 History of chronic hidradenitis suppurativa. COMPARISON: Correlation is made with 12/06/2024 and 11/19/2024 CT examinations. ACCESSION NUMBER(S): [id number] ORDERING CLINICIAN: TOYA RUBIO TECHNIQUE: Multiplanar multisequence MRI of the left femur was performed with and without intravenous gadolinium based contrast. FINDINGS: No images were obtained as the patient was unable to cooperate for the exam. No images were obtained as the patient was unable to cooperate for the exam. MACRO: None Signed by: Kong Armijo 12/12/2024 1:18 PM Dictation workstation: [id number] Oncology Hx Diagnosis: Squamous cell carcinoma of [...] discharge (no plans for IV abx at [place]) #Invasive SCC # Left Gluteus lesions ::biopsy [...] MATHEW and flexed foward posture) Outcome Measures: [facility] Basic Mobility Turning from your back [...] 2:05 PM Latricia Yousif, PT Rehab Office: [phone] Spiritual Care Visit Spiritual Care Request Spiritual Care Annotation Annotation: Master Automotive Technician visited with the patient, who is known to this Master Automotive Technician from prior admissions. Patient shared he was feeling very tired and not in the mood to talk. Patient requested a Bible and a follow-up visit. Master Automotive Technician was able to bring a Bible for the patient. Master Automotive Technician will follow-up tomorrow. Please reach out with any needs/concerns. Rev. Mack Schmitz, Supportive Oncology Master Automotive Technician 12/09/24 1000 Discharge Planning Living Arrangements Other (Comment);Alone (admitted from [facility]) Support Systems Family members;Other (Comment) (SNF staff, SNF SW) Assistance Needed skilled, PT/OT Type of Residence shelter facility Do you have animals or pets at home? No Home or Post Acute Services Post acute facilities (Rehab/SNF/etc) (return to [facility]) Type of Post Acute Facility Services shelter Expected Discharge Disposition SNF Does the patient [...] and discuss discharge planning. Pt admitted from [facility]; pt reports that he's been there on and off since September. Pt confirmed demographic and insurance details. SW contact details written on the whiteboard in pt room. Return referral sent to [facility]. SW will follow. Fer Hidalgo [facility] 12/09/2024 1040 Per [facility], pt's current auth expires on 12/11. Further discharge planning pending updates from the care team. SW will follow. Fer Hidalgo [facility] 12/11/2024 1030 Pt auth for SNF [facility] expires today. Clinical updates sent to facility. Further discharge planning pending updates from the care team. SW will follow. Fer Hidalgo [facility] Kevan La is a 49 y.o. male [...] recs -Hold gabapentin pending lab results given PRAUL during last amdisison -Hold ferrous gluconate given possible infection - Plan for outpatient immunotherapy, not possible inpatient Diet: Full DVT prophylaxis: Lovenox Code status: FULL CODE NOK: Omkar La (brother, ) Patient and plan discussed with attending physician. Fer Gupta MD (Wes) IM PGY-1 I have seen and evaluated the patient with Dr. eFr Gupta (Wes), a resident. I reviewed the [...] Name: Kevan La Today's Date: 12/09/2024 Room: [address] [place] [address] Time Calculation Start Time: 1509 Stop Time: [...] and hospital stays. Prior Function: Level of Grannis: Needs assistance with ADLs, Needs assistance with [...] Within Functional Limits, , and Outcome Measures: [facility] Daily Activity Putting on and taking [...] 3:51 PM Shereen Santoyo OT Rehab Office: [phone] Physical Therapy Physical Therapy Evaluation & Treatment Patient Name: Kevan La Department: [facility] Room: [address] [place] [address] Today's Date: 12/09/2024 Time Calculation Start Time: [...] Home Living: Home Living Type of Home: Long-Term facility Home Living Comments: Pt reports he has been in hospital or SNF since Prior Level of Function: Prior Function Per Pt/Caregiver Report Level of Grannis: Needs assistance with ADLs, Needs assistance with homemaking (Assist for LE dressing and bathing) Ambulatory Assistance: Needs assistance (Using FWW. 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 Outcome Measures: [facility] Basic Mobility Turning from your back [...] Planning Living Arrangements Other (Comment);Alone (admitted from [facility]) Support Systems Family members;Other (Comment) (SNF staff, SNF SW) Assistance Needed skilled, PT/OT Type of Residence shelter facility Do you have animals or pets at home? No Home or Post Acute Services Post acute facilities (Rehab/SNF/etc) (return to [facility]) Type of Post Acute Facility Services shelter Expected Discharge Disposition SNF Does the patient [...] and discuss discharge planning. Pt admitted from [facility]; pt reports that he's been there on and off since September. Pt confirmed demographic and insurance details. SW contact details written on the whiteboard in pt room. Return referral sent to [facility]. SW will follow. Fer [facility] 12/09/2024 1040 Per [facility], pt's current auth expires on 12/11. Further discharge planning pending updates from the care team. SW will follow. Fer Hidalgo [facility] Physical Therapy Therapy Communication Note Patient Name: Kevan La Department: [facility] Room: [address] [place] [address] Today's Date: 12/09/2024 Discipline: Physical Therapy PT [...] on board. Gibson Mendiola MD, PhD Hematology/Oncology [facility] Medication History Review Kevan La is a 49 y.o. male admitted for Gluteal abscess. Pharmacy reviewed the patient's leazr-go-oivshdvwf medications and allergies for accuracy. Medications ADDED: None Medications CHANGED: Ibuprofen every 6 hours to every 4 hours Medications REMOVED: Vitamin D3 10,000 units The list below reflects the updated VACUUM PAN TENDER list. Prior to Admission Medications Prescriptions Last [...] Allergies Patient declines M2B at discharge. Sources: [facility] -- [facility] Heme/onc AVS from 11/29 Additional Comments: VACUUM PAN TENDER medication list updated per [facility] SNF medication list Medication flow sheet from 11/08-12/06 Please review additional comments above for additional comments Connie Choi PharmD Transitions of Care Pharmacist 12/08/24 Secure Chat preferred If no response call [place] or [employer] 12/08/24 1221 Discharge Planning Living Arrangements Other (Comment) (Currently at [facility]) Support Systems Family members (Family all lives in [place], so supportive but distant) Type of Residence shelter facility Home or Post Acute Services Post acute facilities (Rehab/SNF/etc) Type of Post Acute Facility Services shelter Expected Discharge Disposition SNF Patient Choice Patient / Family choosing to utilize agency / facility established prior to hospitalization Yes Met with patient bedside, he is currently from [facility] in [place]; where he admitted Medicaid pending in 11/12; [...] which he states they all live in [place]. This loan underwriter suggests as well talk to the SW/CM at the SNF and coordinating with a [facility] Chronometer Assembler And Adjuster, that there may be local resources to [...] on 12/09/2024 Exposure target: AUC24 (range)400-600 mg/L.hr [id number]: 570 mg/L.hr AUC24,ss: 549 mg/L.hr Probability of [...] and invasive SCC who is returning to [facility] 12/08/2024 as a transfer from [facility] regarding gluteal fluid collection. 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 November 29 initial diagnosis December 09: To start chemotherapy with cemiplimab, 21-day cycles Previous Hospital Course Notably, the pt was admitted at [facility] 11/10-11/27 after her arrived from [facility] and CT revealed large ulcerative wound at [...] Today he presents as transfer from [facility] (where he was brought to from [facility]) with reports that his wound looks worse. [...] and invasive SCC who is returning to [facility] 11/10/2024 as a transfer from [facility] regarding gluteal wound with worsening odor and [...] SCC of the L hip transferred to [facility] after presenting to [facility] ED with worsening pain found to have [...] on 12/07/2024 Exposure target: AUC24 (range)400-600 mg/L.hr [id number]: 419 mg/L.hr AUC24,ss: 556 mg/L.hr Probability of [...] Carin Kim PharmD documented in this encounter [facility] Work Phone: 12-19-2024 Miscellaneous Notes The patient's [...] dressing change Outcome: Progressing Flowsheets (Taken 12/17/2024 233) Decreased wound size/increased tissue granulation at next [...] Monitor/record intake including meals Reassess MST if chief service observer not consulted 12/15/2024 1037 by Cristiana Simon RN Outcome: Progressing Flowsheets (Taken 12/15/2024 1037) Promote/optimize nutrition: Assist with feeding Discuss with provider if NPO > 2 days Offer water/supplements/favorite foods Consume > 50% meals/supplements Monitor/record intake including meals Reassess MST if chief service observer not consulted Goal: Promote skin healing 12/15/2024 1037 by Cristiana Simon RN Flowsheets (Taken 12/15/2024 1037) Promote skin healing: Assess skin/pad under line(s)/device(s) Ensure correct size (line/device) and apply per switch operators supervisor instructions Protective dressings over bony prominences Rotate device position/do not position patient on device Turn/reposition every 2 hours/use positioning/transfer devices 12/15/2024 1037 by Cristiana Simon RN Outcome: Progressing Flowsheets (Taken 12/15/2024 1037) Promote skin healing: Assess skin/pad under line(s)/device(s) Ensure correct size (line/device) and apply per switch operators supervisor instructions Protective dressings over bony prominences Rotate [...] granulation at next dressing change Outcome: Progressing eKvan La is a 49 y.o. male with [...] and invasive SCC who is returning to [facility] 11/10/2024 as a transfer from [facility] regarding gluteal fluid collection. Notably, the pt was admitted at [facility] 11/10-11/27 after her arrived from [facility] and CT revealed large ulcerative wound at [...] pt restarted on zosyn. Was discharged to [facility] on Augmentin for one month. Today he presents as transfer from [facility] (where he was brought to from [facility]) with reports that his wound looks worse. [...] 12/06/2024 [facility] LA [facility] 1975 [id number] Ex[facility] Date/Time: 12/06/2024 12:46 Procedure: CT PELVIS [...] and invasive SCC who is returning to [facility] 11/10/2024 as a transfer from [facility] regarding gluteal wound with worsening odor and [...] safe from injury documented in this encounter [facility] Work Phone: 12-18-2024 Consult note Formatting of [...] consult to Integrative Hem/Onc Consult performed by: Cristaina Evans APRN-NEHAL Consult ordered by: Mack Frias [...] before oncologic resection. Integrative hematology/oncology consulted by [facility] oncology team for non-pharmacological symptom management of depression and pain. Pt resting in bed at time of exam, no family at bedside. Integrative hematology/oncology consult team introduced to pt. Non-pharmacological symptom management interventions reviewed, including: Reiki, meditation, mindfulness practices, guided imagery, as well as acupuncture, acupressure, and gentle bodywork. Pt declined integrative heme/onc services. Music therapy, art therapy, news content specialist and pet therapy offered to pt, pt declined; pt stated the levee superintendent has been following. Information obtained from chart [...] 12/06/2024 and 11/19/2024 CT examinations. ACCESSION NUMBER(S): [id number] ORDERING CLINICIAN: GIBSON MENDIOLA TECHNIQUE: Multiplanar multisequence [...] Kong Armijo 12/12/2024 1:33 PM Dictation workstation: [id number] MR femur left wo IV contrast Result Date: 12/12/2024 Interpreted By: Kong Armijo and Lawrence Austen STUDY: MRI of the left femur with and without contrast dated 12/10/2024. 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 History of chronic hidradenitis suppurativa. COMPARISON: Correlation is made with 12/06/2024 and 11/19/2024 CT examinations. ACCESSION NUMBER(S): [id number] ORDERING CLINICIAN: TOYA RUBIO TECHNIQUE: Multiplanar multisequence MRI of the left femur was performed with and without intravenous gadolinium based contrast. FINDINGS: No images were obtained as the patient was unable to cooperate for the exam. No images were obtained as the patient was unable to cooperate for the exam. MACRO: None Signed by: Kong Armijo 12/12/2024 1:18 PM Dictation workstation: [id number] CT pelvis w IV contrast Result Date: [...] carcinoma. COMPARISON: CT pelvis 11/08/2024. ACCESSION NUMBER(S): [id number] ORDERING CLINICIAN: CLAUDIO PLUNKETT TECHNIQUE: CT of the chest, abdomen, and pelvis was performed. Contiguous axial images were obtained at 3 mm slice thickness through the chest, abdomen and pelvis. Coronal and sagittal reconstructions at 3 mm slice thickness were performed. 90 ML of Omnipaque 350 was administered intravenously without immediate complication. FINDINGS: CHEST: LUNG/PLEURA/LARGE AIRWAYS: Rwrc-pw-uxktroqg upper lobe predominant centrilobular and paraseptal emphysema. [...] Attention on follow-up examinations is recommended. 5. Ejkm-qtzfnvf-qjbr-right skin thickening extending from the sacral region to the proximal thigh, in keeping with patient's background of hydradenitis suppurativa. 6. Kpxu-lk-pjyqolcy upper lobe predominant centrilobular and paraseptal emphysema. I personally reviewed the images/study and I agree with the findings as stated by Elenita Munroe MD (PGY-2). This study was interpreted at [facility], [place], [place]. MACRO: None Signed by: Ravin Hyatt 11/19/2024 4:54 PM Dictation workstation: [id number] Assessment/Plan Introduction to Integrative Medicine: Spoke with pt at bedside. Patient seemed to appreciate the extra layer of support. Integrative Medicine was introduced as a service for patients with serious illness to help with symptoms through non-pharmacological management, such as mindfulness, acupuncture, and gentle bodywork. Such interventions can assist with symptoms such as anxiety, fatigue, nausea, depression and pain. [facility] Integrative Medicine Symptom Management program [...] integrative heme/onc services. Music therapy, art therapy, news content specialist and pet therapy offered to pt, pt declined; pt stated the levee superintendent has been following. Left gluteal pain: pain related to malignancy, lesions Pain is well-controlled Defer to supportive oncology team for adequate PO/IV pain regimen Recommend integrative therapy modalities as pt allows: -Acupuncture; provided pt education today. Pt declined services, requesting follow up when next available -Acupressure, gua sha -Gentle bodywork and stretching as tolerated -Art therapy -Music therapy -Bioprocessing Manufacturing Technician -Pet therapy Altered Mood: Anxiety and/or depression r/t health concerns History of anxiety/depression -Recommend integrative medicine modalities as listed above Mindfulness Brittney: AMDtx, Calm, Headspace, Insight Timer Guided Imagery Meditation (15 min in the morning) - consider mindfulness (Mindfulness based Stress Reduction) Apps such as CALM or Headspace Deep breathing: Alternate nostril breathing and Deep abdominal breathing (5 min) in the morning [facility] - Guided Meditation Thank you for allowing us to participate in the care of this patient. Integrative Medicine Team will continue to follow as needed. Please contact team with any questions or concerns. TRAVIS Patel (available by Humouno) [facility] Inpatient Integrative Medicine I spent 45 [...] reports having a good appetite during and VACUUM PAN TENDER. VACUUM PAN TENDER would drink ensure and a pastry for [...] Energy Estimated Needs in 24 hours (kCal): ([phone]) Method for Estimating Needs: ABW x 28-32 [...] left gluteal region who was transferred to [facility] due to concerns for worsening left gluteal [...] affecting the LLE who was transferred to [facility] due to concerns of worsening LLE infection. [...] Little MD PGY-3 General Surgery Surgical Oncology [id number] Cosigned by Kong Mina MD at 12/09/2024 8:32 AM EDT Associated Order(s): Inpatient consult to [facility] Adult Supportive Oncology SUPPORTIVE AND PALLIATIVE ONCOLOGY [...] medications to patient prior to discharge via [facility] pharmacy. Prescriptions will need to be sent 48-72 hours prior to discharge so that a prior authorization can be completed. Discharge date: unknown pending acute issues Patient has an appointment with Outpatient Supportive Oncology TRAVIS Talavera 12/17/24 SIGNATURE: TRAVIS Rodas PAGER/CONTACT: Contact information: Supportive and Palliative Oncology Monday-Monday 8 AM-5 PM Epic Secure chat or pager [phone]. After hours and weekends: pager [phone] Inpatient consult to [facility] Adult Supportive Oncology Consult performed by: TRAVIS Rodas Consult ordered by: Mine Nunez MD PALLIATIVE MEDICINE OUTPATIENT PROVIDER: TRAVIS Talavera- has NPV 12/17 CURRENT ATTENDING PROVIDER: Toya Rubio MD Medical Oncologist: Sreedhar Jiang MD Radiation Oncologist: No care team truck driver to display Primary Physician: No primary care provider on file. None REASON FOR CONSULT/CHIEF CONSULT COMPLAINT: pain management Subjective HISTORY OF PRESENT ILLNESS: Kevan La is a 49 y.o. male diagnosed with squamous cell carcinoma. PMH significant for refractory hidradenitis supprativa (HS), chronic gluteal wound and hypotension. Admitted 12/07/2024 for further evaluation and management of cellulitis in [facility]. Supportive and Palliative Oncology is consulted for [...] alone. Has supportive brother and parents in [place], [place]. 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 We will continue to follow. Please contact us for additional questions or concerns. SIGNATURE: TRAVIS Rodas PAGER/CONTACT: Contact information: Supportive and Palliative Oncology Monday-Monday 8 AM-5 PM [employer] Secure chat or pager [phone]. After hours and weekends: pager [phone] documented in this encounter [facility] Work Phone: 12-17-2024 Hospital Discharge instructions Fer [...] to feel better! documented in this encounter [facility] Work Phone: 12-16-2024 Procedure note Associated Ord er(s): LACE TEARING SUPERVISOR MODIFIED BARIUM SWALLOW EVALUATION Speech-Language Pathology Inpatient Modified Barium Swallow Study Patient Name: Kevan La : 1975 Today's Date: 12/16/24 Start Time: 845 Stop Time: 915 Time Calculation (min): 30 min Modified Barium Swallow Study completed. Informed verbal consent obtained prior to completion of exam. Trials of thin liquid, mildly thick liquid, puree, and solids were given. LACE TEARING SUPERVISOR: MINDY Camp Contact info: Qriously Reason for Referral: C/f aspiration/oropharyngeal dysphagia Patient Hx: Kevan La is a 49 y.o. 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 LACE TEARING SUPERVISOR Frequency: 2x per week Duration: 1-2 weeks [...] given on all accounts. Treatment Provided Today: LACE TEARING SUPERVISOR provided extensive education and training to pt/pt [...] further evaluation by medical specialists, as applicable. LACE TEARING SUPERVISOR Impressions with Severity Rating: Pt presenting with [...] obtained, suspect within normal limits for clearance LACE TEARING SUPERVISOR recommends cautious initiation of thin liquids and easy to chew diet. See additional PO intake guidelines outlined below. If pt demonstrates any change/decline in medical/mental/respiratory status please make NPO and alert LACE TEARING SUPERVISOR. Will continue to follow while in acute care setting to ensure diet tolerance and use of safe swallow guidelines. MD aware of recommendations Rosenbek's Penetration Aspiration Scale Thin Liquids: 3. PENETRATION with LOW ASPIRATION risk - contrast remains above vocal cords, visible residue] [place] Thick Liquids: 3. PENETRATION with LOW ASPIRATION risk - contrast remains above vocal cords, visible residue] Puree: 1. NO ASPIRATION & NO PENETRATION - no aspiration, contrast does not enter airway Solids: 1. NO ASPIRATION & NO PENETRATION - no aspiration, contrast does not enter airway documented in this encounter [facility] Work Phone: 12-10-2024 Nurse Note Patient asked [...] some divisional activities. documented in this encounter [facility] Work Phone: 12-07-2024 History and physical note [facility] ACUTE CARE SURGERY - CONSULT Patient Name: Kevan La Admit Date: 12/07/2024 : 1975 AGE: 49 y.o. GENDER: male TODAY'S ASSESSMENT AND PLAN OF CARE: ASSESSMENT: Kevan La is a 49 y.o. male with history of hidradenitis supprativa refractory to numerous medications, invasive SCC dx in Oct 2024 both affecting the LLE who was transferred to [facility] due to concerns for worsening infection in the LLE. Pt is stable with no s/s of systemic infection. High suspicion for necrotic oncologic mass over fluid collection. No indication for I&D. Requested outside images from rads op, recommend requesting radiology overread. Consider MRI to further evaluation of soft tissue/mass Discussed with Dr. Garrison. Kishore Sweeney MD PGY-1 General Surgery Acute Care Surgery [id number] Subjective CHIEF COMPLAINT/REASON FOR CONSULT: Chief Complaint: change in quantity and quality of drainage from know HS HPI: Kevan La is a 49 y.o. male with history of hidradenitis supprativa refractory to numerous medications, invasive SCC dx in Oct 2024 both affecting the LLE who was transferred to [facility] due to concerns for worsening infection in [...] 12/08/2024 1:05 AM EDT Pts imaging from [place] and last imaging at [facility] reviewed. Recommend having our radiology team review [place] CT and provide comparison to last CT [...] Today he presents as transfer from [facility], came in from SNF, reporting worsening wound. States for the last week he has noticed increased odor and discharge (unclear what color). Endorses taking his Augmentin as instructed. Denies any worsening pain. States during this time he has felt fatigued and endorses nausea and NBNB vomiting. Denies any fever, chills, or any other symptoms. Notably, the pt was admitted at [facility] 11/10-11/27 after her arrived from [facility] and CT revealed large ulcerative wound at [...] and invasive SCC who is returning to [facility] 11/10/2024 as a transfer from [facility] regarding gluteal fluid collection. Labs Cr 1.32, [...] Deficiency :: Hgb 10.[address] [facility], Hgb 8.8 on admission, Hgb 9.0 [...] 5:04 PM EDT documented in this encounter [facility] Work Phone: 12-07-2024 Nurse Note [phone] called report to ambulance is here to pick patient up [facility] 12-07-2024 Nurse Note [phone] called report to ambulance is here to pick patient up 1114 residential RN called regarding updates, updated on patient status/plan of care documented in this encounter [facility] 12-07-2024 Note Attestation signed by Juvenal Mathur [...] >30min Internal Medicine: Med Team Discharge Summary Kevna La : 1975 ADMIT DATE: 12/06/2024 DISCHARGE [...] carcinoma, chronic kidney diseaset hat presented to [facility] on 12/06/2024 with increased drainage from [...] to his established general surgery team at [facility]. Transfer was arranged. Patient was maintained on [...] Time of Discharge Wound culture, Blood cultures [facility] 12-07-2024 Hospital course Narrative Internal Medicine: [...] carcinoma, chronic kidney diseaset hat presented to [facility] on 12/06/2024 with increased drainage from [...] to his established general surgery team at [facility] [place]. Transfer was arranged. Patient was maintained on [...] on discharge >30min documented in this encounter [facility] 12-07-2024 Emergency department Note Report to AMAN Galindo. [facility] 12-07-2024 Emergency department Note Report to AMAN [...] for clarification.) Fer Hollins MD Acute Care [facility] Fer Hollins MD 12/06/24 1120 documented in this encounter [facility] 12-07-2024 Emergency department Note Patient provided urinal per request. Respirations even and unlabored. No acute distress noted. [facility] 12-07-2024 Emergency department Note Report from AMAN Galindo. [facility] 12-07-2024 Note 1114 residential RN called regarding updates, updated on patient status/plan of care [facility] 12-07-2024 Nurse Note 1114 residential RN called regarding updates, updated on patient status/plan of care [facility] 12-07-2024 Emergency department Note Report to Josie/AMAN and patient moved to room 9 with all belongings and breakfast tray [facility] 12-07-2024 Emergency department Note Patient moving from 43 to 9 now [facility] 12-07-2024 Emergency department Note AMAN/Margarita ordered breakfast for the patient per his preference [facility] 12-07-2024 Emergency department Note Requested pharmacy to retime Vanc due to 3 hour administration of Zosyn (& both ordered at same time) T [facility] 12-07-2024 Consult note Formatting of th is [...] creatinine, and vancomycin levels interfaced automatically to [employer] and data has been analyzed and interpreted. [...] RPh Clinical Pharmacist Available via Secure Chat [facility] 12-07-2024 Consult note Formatting of th is [...] creatinine, and vancomycin levels interfaced automatically to [employer] and data has been analyzed and interpreted. [...] via Secure Chat documented in this encounter [facility] 12-07-2024 History and physical note Internal Medicine: [...] carcinoma by the general surgery team at [facility]. He is scheduled to be transferred to [...] 16.6* ABGs: No results for input(s): PHART, UPD6HNZ, PO2ART, KIN3ZNV, SO2ART, [id number] in the last 72 hours. Lactic Acid: [...] cell carcinoma from dermatology at [facility] -CT scan of abdomen and pelvis showing [...] monitoring serum creatinine 7AM-5PM: contact resident on [employer] (find by hovering over attending's name on left side of patient's chart) 5PM-7AM: contact [employer] Phone: 12-07-2024 Note Attestation signed by Juvenal [...] monitoring serum creatinine 7AM-5PM: contact resident on [facility] Gato B (find by hovering over attending's [...] carcinoma by the general surgery team at [facility]. He is scheduled to be transferred to [...] g) into a (more content not included)... [facility] 12-07-2024 History and physical note Internal [...] carcinoma by the general surgery team at [facility]. He is scheduled to be transferred to [...] 16.6* ABGs: No results for input(s): PHART, [id number], PO2ART, LTO9IUJ, SO2ART, [id number] in the last 72 hours. Lactic Acid: [...] cell carcinoma from dermatology at [facility] -CT scan of abdomen and pelvis showing [...] Normal (BMI 18.5-24.9) - Disposition: Admit to [facility]. - Given the signs and symptoms [...] monitoring serum creatinine 7AM-5PM: contact resident on [facility] Med B (find by hovering over attending's name on left side of patient's chart) 5PM-7AM: contact AI2 res documented in this encounter [facility] 12-07-2024 Emergency department Note Patient actively vomiting - provider notified [facility] 12-07-2024 Emergency department Note Report given to AMAN Sutton T [facility] 12-06-2024 Emergency department Note Assume care of pt from AMAN Sutton for lunch coverage [facility] 12-06-2024 Emergency department Note Patient requested pillow to place under right hip/leg for comfort. States he got a text message from that he can early check in and questioned if transfer was arranged. This nurse advised patient unknown at this time. T [facility] 12-06-2024 Emergency department Note Pt to CT T [facility] 12-06-2024 Emergency department Note This RN attempted to obtain another IV access and blood cultures but was unsuccessful [facility] 12-06-2024 Emergency department Note Report to AMAN Pittman. [facility] 12-06-2024 Emergency department Note Pt presents to ED via EMS from an assisted living facility with c/o a seeping ulcer. EMS reports this has been an ongoing issue. Pt states he is only ambulatory for short distances. Pt is A&Ox4. [facility] 12-06-2024 Physician Emergency department Note Emergency Department [...] for clarification.) Fer Hollins MD Acute Care [facility] Fer Hollins MD 12/06/24 1120 [employer] Phone: 11-29-2024 History of Present illness [...] Attention on follow-up examinations is recommended. 5. Jpjl-zkegirj-khcq-right skin thickening extending from the sacral region to the proximal thigh, in keeping with patient's background of hydradenitis suppurativa. 6. Vdin-pp-gosqnpnn upper lobe predominant centrilobular and paraseptal emphysema. [...] clinical picture. Sreedhar Jiang MD Attending Physician [facility] Casing In Line Setterwarehouse order puller [facility] [employer] documented in this encounter [facility] Work Phone: 11-27-2024 History of Present illness Narrative Auth approved. Per medical team, patient is medically ready to discharge. [facility] ready to accept today. Transport confirmed for 5pm today with [facility] ([phone]). Report: [phone]. Nurse, medical team, SNF, and patient aware [...] Kevan La : 1975 Date: 11/26/24 Room: [address] [place] [address] Time Calculation Start Time: 1234 Stop Time: [...] of continued care Equipment Recommended upon Discharge: (nuclear design engineer, sock aide, shower chair) OT Recommended Transfer [...] Strength Comments: WFL via ADLs Outcome Measures: [facility] Daily Activity Putting on and taking [...] 12/02/24 11/26/24 at 2:05 PM DANY Cortés/Kamila [phone] Requested [facility] DSC team start precert for [facility]. Jami Erwin RN, TCC Occupational Therapy Therapy Communication Note Patient Name: Kevan La Department: [place] [address] Room: [address] [place] [address] Today's Date: 11/26/2024 Discipline: Occupational Therapy OT [...] carcinoma. COMPARISON: CT pelvis 11/08/2024. ACCESSION NUMBER(S): [id number] ORDERING CLINICIAN: CLAUDIO PLUNKETT TECHNIQUE: CT of the chest, abdomen, and pelvis was performed. Contiguous axial images were obtained at 3 mm slice thickness through the chest, abdomen and pelvis. Coronal and sagittal reconstructions at 3 mm slice thickness were performed. 90 ML of Omnipaque 350 was administered intravenously without immediate complication. FINDINGS: CHEST: LUNG/PLEURA/LARGE AIRWAYS: Ycem-cm-dnmtxbgp upper lobe predominant centrilobular and paraseptal emphysema. [...] Attention on follow-up examinations is recommended. 5. Xhkf-vnfpioy-gcjw-right skin thickening extending from the sacral region to the proximal thigh, in keeping with patient's background of hydradenitis suppurativa. 6. Rewf-cv-qfgltmsl upper lobe predominant centrilobular and paraseptal emphysema. I personally reviewed the images/study and I agree with the findings as stated by Elenita Munroe MD (PGY-2). This study was interpreted at [facility], [place], [place]. MACRO: None Signed by: Ravin Hyatt 11/19/2024 4:54 PM Dictation workstation: [id number] Physical Exam General: Resting in bed on [...] clindamycin, rifampin, augmentin and doxycycline, transferred from [facility] regarding 14cm gluteal fluid collection. He was [...] tentatively arrange follow-up with Dr. Jiang at [facility], pending transport capabilities of [...] outpt follow-up if he is establishing at [facility] for follow-up oncology care [...] ::A1c and UA normal on admission at [facility] ::FeUrea 48.2% (>35=> suggestive of intrinsic renal disease) Plan - Avoid nephrotoxic drug, hypotension, sepsis, dehydration - Continuing to encourage oral hydration and monitor serum calcium #Bladder Calculi ::Incidentally noted on CT Pelvis from OSH, asymptomatic, max diam is 1.5 cm #Normocytic Anemia #Folate Deficiency :: Hgb 10.[address] [facility], Hgb 8.8 on admission, Hgb 9.0 [...] Therapy Treatment Patient Name: Kevan La Department: [facility] 3 Room: 319/319-A Today's Date: 11/25/2024 Time [...] of Assistance 2: Contact guard Outcome Measures: [facility] Basic Mobility Turning from your back [...] recorded blue grass version of the song, Noonswoon jcarlos and expressed interest in covers of [...] coping during his stay. Follow-up: [place] and [place] will continue to f/u during pts admission. Education Documentation No documentation found. Cosigned by RAJENDRA Liu at 11/27/2024 2:06 PM EDT Transitional Care Coordination Progress Note: PLAN PER MEDICAL TEAM: Working on pain management, still severe. Received recommendations from supportive onc. Continue to monitor his resolving wound infection requiring IV ATB that will convert to oral prior to discharge. PAYOR: Veronica DISPO: [facility] is accepting FOC. ADOD 2-3 days. Will [...] carcinoma. COMPARISON: CT pelvis 11/08/2024. ACCESSION NUMBER(S): [id number] ORDERING CLINICIAN: CLAUDIO PLUNKETT TECHNIQUE: CT of the chest, abdomen, and pelvis was performed. Contiguous axial images were obtained at 3 mm slice thickness through the chest, abdomen and pelvis. Coronal and sagittal reconstructions at 3 mm slice thickness were performed. 90 ML of Omnipaque 350 was administered intravenously without immediate complication. FINDINGS: CHEST: LUNG/PLEURA/LARGE AIRWAYS: Ahie-bp-vhyrsqtj upper lobe predominant centrilobular and paraseptal emphysema. [...] Attention on follow-up examinations is recommended. 5. Snte-vzbwere-ahii-right skin thickening extending from the sacral region to the proximal thigh, in keeping with patient's background of hydradenitis suppurativa. 6. Bnpw-pb-czwrfcxl upper lobe predominant centrilobular and paraseptal emphysema. I personally reviewed the images/study and I agree with the findings as stated by Elenita Munroe MD (PGY-2). This study was interpreted at [facility], [place], [place]. MACRO: None Signed by: Ravin Hyatt 11/19/2024 4:54 PM Dictation workstation: [id number] Physical Exam General: Resting in bed on [...] clindamycin, rifampin, augmentin and doxycycline, transferred from [facility] regarding 14cm gluteal fluid collection. He was [...] tentatively arrange follow-up with Dr. Jiang at [facility], pending transport capabilities of [...] outpt follow-up if he is establishing at [facility] for follow-up oncology care [...] ::A1c and UA normal on admission at [facility] ::FeUrea 48.2% (>35=> suggestive of intrinsic renal disease) Plan - Avoid nephrotoxic drug, hypotension, sepsis, dehydration - Continuing to encourage oral hydration and monitor serum calcium #Bladder Calculi ::Incidentally noted on CT Pelvis from OSH, asymptomatic, max diam is 1.5 cm #Normocytic Anemia #Folate Deficiency :: Hgb 10.[address] [facility], Hgb 8.8 on admission, Hgb 9.0 [...] carcinoma. COMPARISON: CT pelvis 11/08/2024. ACCESSION NUMBER(S): [id number] ORDERING CLINICIAN: CLAUDIO PLUNKETT TECHNIQUE: CT of the chest, abdomen, and pelvis was performed. Contiguous axial images were obtained at 3 mm slice thickness through the chest, abdomen and pelvis. Coronal and sagittal reconstructions at 3 mm slice thickness were performed. 90 ML of Omnipaque 350 was administered intravenously without immediate complication. FINDINGS: CHEST: LUNG/PLEURA/LARGE AIRWAYS: Xztv-nf-ufopazyu upper lobe predominant centrilobular and paraseptal emphysema. [...] Attention on follow-up examinations is recommended. 5. Epmw-kxdaqlm-msww-right skin thickening extending from the sacral region to the proximal thigh, in keeping with patient's background of hydradenitis suppurativa. 6. Slhs-nv-wvrlhzac upper lobe predominant centrilobular and paraseptal emphysema. I personally reviewed the images/study and I agree with the findings as stated by Elenita Munroe MD (PGY-2). This study was interpreted at [facility], [place], [place]. MACRO: None Signed by: Ravin Hyatt 11/19/2024 4:54 PM Dictation workstation: [id number] Physical Exam General: Resting in bed on [...] clindamycin, rifampin, augmentin and doxycycline, transferred from [facility] regarding 14cm gluteal fluid collection. He was [...] tentatively arrange follow-up with Dr. Jiang at [facility], pending transport capabilities of [...] ::A1c and UA normal on admission at [facility] ::FeUrea 48.2% (>35=> suggestive of intrinsic renal disease) - Avoid nephrotoxic drug, hypotension, sepsis, dehydration - Continuing to encourage oral hydration and monitor serum calcium #Bladder Calculi ::Incidentally noted on CT Pelvis from OSH, asymptomatic, max diam is 1.5 cm #Normocytic Anemia #Folate Deficiency :: Hgb 10.[address] [facility], Hgb 8.8 on admission, Hgb 9.0 [...] carcinoma. COMPARISON: CT pelvis 11/08/2024. ACCESSION NUMBER(S): [id number] ORDERING CLINICIAN: CLAUDIO PLUNKETT TECHNIQUE: CT of the chest, abdomen, and pelvis was performed. Contiguous axial images were obtained at 3 mm slice thickness through the chest, abdomen and pelvis. Coronal and sagittal reconstructions at 3 mm slice thickness were performed. 90 ML of Omnipaque 350 was administered intravenously without immediate complication. FINDINGS: CHEST: LUNG/PLEURA/LARGE AIRWAYS: Dhzx-br-hogqkcaj upper lobe predominant centrilobular and paraseptal emphysema. [...] Attention on follow-up examinations is recommended. 5. Nfoo-iwuezor-jkbb-right skin thickening extending from the sacral region to the proximal thigh, in keeping with patient's background of hydradenitis suppurativa. 6. Eovx-ph-xjrfakjq upper lobe predominant centrilobular and paraseptal emphysema. I personally reviewed the images/study and I agree with the findings as stated by Elenita Munroe MD (PGY-2). This study was interpreted at [facility], [place], [place]. MACRO: None Signed by: Ravin Hyatt 11/19/2024 4:54 PM Dictation workstation: [id number] Physical Exam General: Resting in bed on [...] clindamycin, rifampin, augmentin and doxycycline, transferred from [facility] regarding 14cm gluteal fluid collection. He was [...] tentatively arrange follow-up with Dr. Jiang at [facility], pending transport capabilities of [...] ::A1c and UA normal on admission at [facility] ::FeUrea 48.2% (>35=> suggestive of intrinsic renal disease) - Avoid nephrotoxic drug, hypotension, sepsis, dehydration - Continuing to encourage oral hydration and monitor serum calcium #Bladder Calculi ::Incidentally noted on CT Pelvis from OSH, asymptomatic, max diam is 1.5 cm #Normocytic Anemia #Folate Deficiency :: Hgb 10.[address] [facility], Hgb 8.8 on admission, Hgb 9.0 [...] molecule JAK1 inhibitor), who was transferred from 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 on standing ther ex [...] avoid weight thru left side.) Outcome Measures: [facility] Basic Mobility Turning from your back [...] q8h Continue scheduled fentanyl 50mcg/h TD patch [id number] 11/20/24 Continue gabapentin 300mg PO once daily [...] One time PRN dose of bisacodyl 10mg KS ordered per primary Goal to have BM without straining q48-72h, adjust regimen as needed Encourage mobility as tolerated, PT/OT following Disposition: Please start the process of having prior authorization with meds to beds deliver medications to patient prior to discharge via [facility] pharmacy. Prescriptions will need to be [...] and Palliative Oncology Monday-Monday 8 AM-5 PM [employer] chat or pager [phone]. After hours and weekends: pager [phone] == SUBJECTIVE: Pain Assessment: I have no pain right now. Opioid Requirements Past 24h opioid requirements: (11/21-11/22, 2662-5012) fentanyl 50mcg/h TD patch x 1 = [...] Decision Making/Goals of Care/Advance Care Planning: (Per Eimle Segovia, SLOT MACHINE KEY PERSON's, note on 11/16/24) Patient's current clinical condition, including diagnosis, prognosis, and management plan, and goals of care were discussed. Life limiting disease: SCC of UNK primary Family: Supportive though live in [place] Performance status: Moderate limitations due to pain Joys/meaning/strength: Family and Grannis Understanding of health: 11/16: Demonstrates good prognostic [...] maker: Surrogate decision maker is Omkar robertson ([phone]) == Signature and billing: Medical complexity was [...] of shared electronic medical record/secure chat/email or [id number]. We will continue to follow. Please contact us for additional questions or concerns. SIGNATURE: TRAVIS Huizar PAGER/CONTACT: Contact information: Supportive and Palliative Oncology Monday-Monday 8 AM-5 PM, [employer] Secure chat or pager [phone]. After hours and weekends: pager [phone] Kevan La is a 49 y.o. male [...] clindamycin, rifampin, augmentin and doxycycline, transferred from [facility] regarding 14cm gluteal fluid collection. He was [...] tentatively arrange follow-up with Dr. Jiang at [facility], pending transport capabilities of [...] ::A1c and UA normal on admission at [facility] ::FeUrea 48.2% (>35=> suggestive of intrinsic renal disease) - Avoid nephrotoxic drug, hypotension, sepsis, dehydration - Continuing to encourage oral hydration and monitor serum calcium #Bladder Calculi ::Incidentally noted on CT Pelvis from OSH, asymptomatic, max diam is 1.5 cm #Normocytic Anemia #Folate Deficiency :: [facility], Hgb 8.8 on admission, Hgb 9.0 [...] clindamycin, rifampin, augmentin and doxycycline, transferred from [facility] regarding 14cm gluteal fluid collection. He was [...] 11/21 Updates: - LC staining negative - [place] 61.2 (H), Lambda 44.2 (H), ratio 1.38 [...] tentatively arrange follow-up with Dr. Jiang at [facility], pending transport capabilities of [...] ::A1c and UA normal on admission at [facility] ::FeUrea 48.2% (>35=> suggestive of intrinsic renal disease) - Avoid nephrotoxic drug, hypotension, sepsis, dehydration - Continuing to encourage oral hydration and monitor serum calcium #Bladder Calculi ::Incidentally noted on CT Pelvis from OSH, asymptomatic, max diam is 1.5 cm #Normocytic Anemia #Folate Deficiency :: Hgb 10.[address] [facility], Hgb 8.8 on admission, Hgb 9.0 [...] q8h Continue scheduled fentanyl 50mcg/h TD patch [id number] 11/20/24 Start gabapentin 300mg PO once daily [...] One time PRN dose of bisacodyl 10mg KS ordered per primary Goal to have BM without straining q48-72h, adjust regimen as needed Encourage mobility as tolerated, PT/OT following Disposition: Please start the process of having prior authorization with meds to beds deliver medications to patient prior to discharge via [facility] pharmacy. Prescriptions will need to be sent 48-72 hours prior to discharge so that a prior authorization can be completed. Discharge date: unknown pending acute issues Patient does not qualify for an appointment with Outpatient Supportive Oncology- needs to establish with Oncology outpatient SIGNATURE: TRAVIS Huizar PAGER/CONTACT: Contact information: Supportive and Palliative Oncology Monday-Monday 8 AM-5 PM [employer] chat or pager [phone]. After hours and weekends: pager [phone] == SUBJECTIVE: Interval Events: Pt's pain sub-optimally controlled on current regimen. Discussed with pt and he is agreeable to above recommendations. Plans to re-evaluate pt tomorrow for possible eligibility for fentanyl patch increase. Dropped off Supportive Oncology information packet, [facility] packet, and packet regarding assistance with disability/financial resources per levee superintendent. Pain Assessment: Location: Left gluteal abscess Duration: Constant Characteristics: Ratin/10 Descriptors: Throbbing, sharp, and burning Aggravating: Movement, worse at night Relieving: Analgesics, positioning, and modifying activity Interference with Function: Somewhat Opioid Requirements Past 24h opioid requirements: (11/20-11/21, 7971-4074) fentanyl 50mcg/h TD patch x 1 = [...] UNK primary Family: Supportive though live in [place] Performance status: Moderate limitations due to pain Joys/meaning/strength: Family and Grannis Understanding of health: 11/16: Demonstrates good prognostic [...] maker: Surrogate decision maker is Omkar robertson ([phone]) == Signature and billing: Medical complexity was [...] of shared electronic medical record/secure chat/email or [id number]. We will continue to follow. Please contact us for additional questions or concerns. SIGNATURE: TRAVIS Huizar PAGER/CONTACT: Contact information: Supportive and Palliative Oncology Monday-Monday 8 AM-5 PM, [employer] Secure chat or pager [phone]. After hours and weekends: pager [phone] Transitional Care Coordination Progress Note: Patient discussed during interdisciplinary rounds. Team members present: MIGUEL NIELSEN Plan per Medical/Surgical team: Gluteal Abscess Payor: [facility] Discharge disposition: [facility] Potential Barriers: medical ADOD: 3-4 days Per MD, continuing to manage pain. Pending plans from oncology. Updated notes sent to facility. Will continue to follow for discharge planning needs. Julisa GARZA, feather stitcher Coordinator (TCC) [phone] Occupational Therapy OT Treatment Patient Name: Kevan La Department: [place] [address] Room: [address] [place] [address] Today's Date: 11/21/2024 Time Calculation Start Time: [...] health - pt highly appreciative. Outcome Measures: [facility] Daily Activity Putting on and taking [...] (OTR/L, OTD) Inpatient Occupational Therapist Rehab Office: [phone] Spiritual Care Visit Spiritual Care Request Spiritual Care Annotation Annotation: Master Automotive Technician had a follow-up visit with the patient. Master Automotive Technician delivered prayer book resources as promised and [...] for 25 years. His family lives in [place]. Patient does not have much support around him in [place]. Master Automotive Technician placed a [facility] cancer support referral for the patient upon his request. Master Automotive Technician will continue to follow and provide support. Please reach out with any needs/concerns. Rev. Mack Schmitz, Supportive Oncology Master Automotive Technician Physical Therapy Therapy Communication Note Patient Name: Kevan La Department: [facility] 3 Room: [address] [place] [address] Today's Date: 11/20/2024 Discipline: Physical Therapy PT Missed Visit: Yes Missed Visit Reason: Missed Visit Reason: Patient refused (Pt stated he has been nauseaus today and not willing to get up.) Missed Time: Attempt Comment: Cosigned by Doris Guzman, PT at 11/20/2024 9:44 PM EST Occupational Therapy Therapy Communication Note Patient Name: Kevan La Department: [facility] 3 Room: [facility]319-A Today's Date: 11/20/2024 Discipline: Occupational Therapy OT [...] (OTR/Kamila, OTD) Inpatient Occupational Therapist Rehab Office: [phone] Kevan La is a 49 y.o. male [...] medications to patient prior to discharge via [facility] pharmacy. Prescriptions will need to be sent 48-72 hours prior to discharge so that a prior authorization can be completed. Discharge date: unknown pending acute issues Patient does not qualify for an appointment with Outpatient Supportive Oncology- needs to establish with Oncology outpatient SIGNATURE: TRAVIS Rodas PAGER/CONTACT: Contact information: Supportive and Palliative Oncology Monday-Monday 8 AM-5 PM [employer] Secure chat or pager [phone]. After hours and weekends: pager [phone] SUBJECTIVE: Interval Events: Pt continues to have [...] UNK primary Family: Supportive though live in [place] Performance status: Moderate limitations due to pain Joys/meaning/strength: Family and Grannis Understanding of health: 11/16: Demonstrates good prognostic [...] of shared electronic medical record/secure chat/email or [id number]. We will continue to follow Please contact us for additional questions or concerns. SIGNATURE: TRAVIS Rodas PAGER/CONTACT: Contact information: Supportive and Palliative Oncology Monday-Monday 8 AM-5 PM [employer] Secure chat or pager [phone]. After hours and weekends: pager [phone] Kevan La is a 49 y.o. male [...] clindamycin, rifampin, augmentin and doxycycline, transferred from [facility] regarding 14cm gluteal fluid collection. He was [...] tentatively arrange follow-up with Dr. Jiang at [facility], pending transport capabilities of [...] ::A1c and UA normal on admission at [facility] ::FeUrea 48.2% (>35=> suggestive of intrinsic renal disease) - Avoid nephrotoxic drug, hypotension, sepsis, dehydration - Continuing to encourage oral hydration and monitor serum calcium #Bladder Calculi ::Incidentally noted on CT Pelvis from OSH, asymptomatic, max diam is 1.5 cm #Normocytic Anemia #Folate Deficiency :: Hgb 10.[address] [facility], Hgb 8.8 on admission, Hgb 9.0 [...] molecule JAK1 inhibitor), who was transferred from 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 PMID: [id number] Recommendations: - Informed patient of biopsy results, [...] of Care: Visited With: Patient Refer to Master Automotive Technician: Spiritual Care Assessment Spiritual Assessment: Care Provided: Intended Effects: Build relationship of care and support, Establish rapport and connectedness, Aligning care plan with patient's values, Convey a calming presence, Promote sense of peace Interventions: Ask guided questions, Active listening, Discuss concerns Sense of Community and or Restoration Affiliation: No baptism on file Master Automotive Technician Addressed Needs/Concerns and/or Mike Through: Outcome: Advance Directives: Spiritual Care Annotation Annotation: Master Automotive Technician introduced self and spiritual care services to [...] to focus on in his own life. Master Automotive Technician made a plan to follow-up tomorrow. Please reach out with any needs/concerns. Rev. Mack Schmitz, Supportive Oncology Master Automotive Technician Music Therapy Note Kevan La Therapy Session [...] clindamycin, rifampin, augmentin and doxycycline, transferred from [facility] regarding 14cm gluteal fluid collection. He was [...] ::A1c and UA normal on admission at [facility] ::FeUrea 48.2% (>35=> suggestive of intrinsic renal disease) - Avoid nephrotoxic drug, hypotension, sepsis, dehydration - Continuing to encourage oral hydration and monitor serum calcium #Bladder Calculi ::Incidentally noted on CT Pelvis from OSH, asymptomatic, max diam is 1.5 cm #Normocytic Anemia #Folate Deficiency :: Hgb 10.[address] [facility], Hgb 8.8 on admission, Hgb 9.0 [...] team: Gluteal abscess Payor: Veronica Discharge disposition: [facility] Potential Barriers: medical ADOD: 2-3 days Updated notes sent to [facility]. Will continue to monitor for discharge planning needs. Julisa GARZA, feather stitcher Coordinator (TCC) [phone] Physical Therapy Physical Therapy Treatment Patient Name: Kevan La Department: [facility] 3 Room: [address] [place] [address] Today's Date: 11/18/2024 Time Calculation Start Time: [...] of Assistance 1: Close supervision Outcome Measures: [facility] Basic Mobility Turning from your back [...] clindamycin, rifampin, augmentin and doxycycline, transferred from [facility] regarding 14cm gluteal fluid collection. He was [...] ::A1c and UA normal on admission at [facility] ::FeUrea 48.2% (>35=> suggestive of intrinsic [...] clindamycin, rifampin, augmentin and doxycycline, transferred from [facility] regarding 14cm gluteal fluid collection. He was [...] ::A1c and UA normal on admission at [facility] ::FeUrea 48.2% (>35=> suggestive of intrinsic renal disease) - Avoid nephrotoxic drug, hypotension, sepsis, dehydration - Continuing to encourage oral hydration and treat hypercalcemia #Bladder Calculi ::Incidentally noted on CT Pelvis from OSH, asymptomatic, max diam is 1.5 cm #Anemia :: Hgb 10.[address] [facility], Hgb 8.8 on admission, Hgb 7.7 [...] Ashly Patterson MD Endocrinology, PGY 5 Pager [phone] or secure chat Case discussed with Dr. [...] clindamycin, rifampin, augmentin and doxycycline, transferred from [facility] regarding 14cm gluteal fluid collection. He was [...] ::A1c and UA normal on admission at [facility] ::FeUrea 48.2% (>35=> suggestive of intrinsic renal disease) - Avoid nephrotoxic drug, hypotension, sepsis, dehydration - Continuing to encourage oral hydration and treat hypercalcemia #Bladder Calculi ::Incidentally noted on CT Pelvis from OSH, asymptomatic, max diam is 1.5 cm #Anemia :: Hgb 10.[address] [facility], Hgb 8.8 on admission, Hgb 7.7 [...] Kevan La : 1975 Date: 11/15/24 Room: [address] [place] [address] Time Calculation Start Time: 1530 Stop Time: [...] Dressing Where Assessed: Bed level Outcome Measures: [facility] Daily Activity Putting on and taking [...] 11/15/24 at 4:17 PM Shereen Santoyo OT [phone] Kevan La is a 49 y.o. male [...] Communication Note Patient Name: Kevan La Department: [place] [address] Room: [address] [place] [address] Today's Date: 11/15/2024 Discipline: Physical Therapy PT [...] clindamycin, rifampin, augmentin and doxycycline, transferred from [facility] regarding 14cm gluteal fluid collection. He was [...] ::A1c and UA normal on admission at [facility] ::FeUrea 48.2% (>35=> suggestive of intrinsic renal disease) - Avoid nephrotoxic drug, hypotension, sepsis, dehydration - Continuing to encourage oral hydration and treat hypercalcemia #Bladder Calculi ::Incidentally noted on CT Pelvis from OSH, asymptomatic, max diam is 1.5 cm #Anemia :: Hgb 10.[address] [facility], Hgb 8.8 on admission, Hgb 7.7 [...] - continue folate supplementation Isa Turner MD vice president planning, PGY-1 Cosigned by Claudio Plunkett MD at [...] molecule JAK1 inhibitor), who was transferred from 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 He was [...] ::Lactate 11/08: 1.2; 1.3 [facility] 11[facility]; Wound Cx were ordered, but not collected :: Last dose of Povorcitanib 10/10 :: Blood Cx from 11/10 NGTD :: Tissue Cx from 11/12 growing rare proteus mirabilis :: s/p tissue bx 11/12 with Dermatology Plan: - continue to follow BCx from [facility] -> micro lab -> blood Cx - [...] of low BPs :: normal TSH @ [facility] #Hypercalcemia, mild ::presented with CoCa 12.5; [...] ::A1c and UA normal on admission at [facility] ::FeUrea 48.2% (>35=> suggestive of intrinsic renal disease) - Avoid nephrotoxic drug, hypotension, sepsis, dehydration - Continuing to encourage oral hydration and treat hypercalcemia #Bladder Calculi ::Incidentally noted on CT Pelvis from OSH, asymptomatic, max diam is 1.5 cm #Anemia :: Hgb 10.[address] [facility], Hgb 8.8 on admission, Hgb 7.7 [...] levels ordered Isa Turner MD vice president planning, PGY-1 Cosigned by Claudio Plunkett MD at [...] team: Gluteal abscess Payor: [facility] Discharge disposition: [facility] Potential Barriers: medical ADOD: 2-3 days Per MD, pending final culture results. Will continue to monitor for discharge planning needs. Updated notes sent to facility. Will continue to monitor for discharge planning needs. Julisa GARZA, feather stitcher Coordinator (TCC) [phone] Kevan La is a 49 y.o. male [...] patient please haiku or call id pager [phone] Sarah Caldwell, MS4 And [employer] Infectious [...] on 11/14/2024 Exposure target: AUC24 (range)400-600 mg/L.hr [id number]: 477 mg/L.hr AUC24,ss: 476 mg/L.hr Probability of [...] and signs/symptoms of toxicity. Alee Rios, PharmD [place] [address] Pharmacist Kevan La is a 49 y.o. [...] clindamycin, rifampin, augmentin and doxycycline, transferred from [facility] regarding 14cm gluteal fluid collection. He was [...] ::Lactate 11/08: 1.2; 1.3 on 11/10 :: [facility] 11/[facility]; Wound Cx were ordered, but not collected :: Last dose of Povorcitanib 10/10 :: WBC 11.1 :: Blood Cx from 11/10 NGTD :: Tissue Cx from 11/12 in progress, no organism seen on Gram stain :: s/p tissue bx 11/12 with Dermatology Plan: - continue to follow BCx from [facility] -> micro lab -> blood Cx - [...] of low BPs :: normal TSH @ [facility] #Hypercalcemia, mild ::presented with CoCa 12.5; iCa 1.69; PTH <6.3 ::25-OH vit D 79; 1.25-OH vit D 35.9 ::PTHrP, SPEP, urine Ca pending :: UPEP wnl ::TSH wnl at [facility] :: Endo following :: s/p pamidronate 90 mg IV 11/12/24 - follow SPEP, urine 24 hr Ca, PTHrP, 1.25-OH vit D levels - continue 200 ml/hr NS #Nicotine Use - Continue home Chantix #Subacute PARUL ::Cr ~1.6 on last admission, 1.48 on admission to [facility] 11/08 > 1.42, prior Cr in 03/2023 was 1.2; Cr 1.44 on presentation to ::On prior admission was evaluated for this with normal UA, CT with no hydronephrosis, felt to be 2/2 NSAID use for HS ::A1c and UA normal on admission at [facility] ::FeUrea 48.2% (>35=> suggestive of intrinsic renal disease) - Avoid nephrotoxic drug, hypotension, sepsis, dehydration - Continuing to encourage oral hydration and treat hypercalcemia #Bladder Calculi ::Incidentally noted on CT Pelvis from OSH, asymptomatic, max diam is 1.5 cm #Anemia :: Hgb 10.[address] [facility], Hgb 8.8 on admission, 8.3 today, stable :: 10/10/24: decr TIBC 218 and Fe 24; normal ferritin 259 :: Holding home PO iron iso possible infection - no evidence of bleeding, pt is HD stable (BPs are soft at baseline per pt), no tachycardia, no neurological changes - will maintain active type and screen Isa Turner MD vice president planning, PGY-1 Cosigned by Claudio Plunkett MD at [...] & Treatment Patient Name: Kevan La Department: [place] [address] Room: [address] [place] [address] Today's Date: 11/12/2024 Time Calculation Start Time: [...] to (R) lean/propped on elbow. Outcome Measures: [facility] Basic Mobility Turning from your back [...] 200 mL/hr, Last Rate: 200 mL/hr (11/11/24 0324) PRN Medications PRN medications: naloxone, ondansetron, oxyCODONE, oxyCODONE, vancomycin Assessment/Plan Kevan La is a 49 y.o. male with refractory hidradenitis supprativa (HS) not responding to povorcitinib (RCT candidate), apremilast, isotretinoin, adalimumab, infliximab, moxifloxacin/metronidazole, minocyclin, clindamycin, rifampin, augmentin and doxycycline, transferred from [facility] regarding 14cm gluteal fluid collection. He was [...] ::Lactate 11/08: 1.2; 1.3 on 11/10 :: [facility] Blood Cx 11/08 N[facility]D; Wound Cx were ordered, but not collected :: Blood Cx from 11/10 NGTD :: -Last dose of Povorcitanib 10/10 :: WBC 11-> 11.5 Plan: - continue to follow BCx from [facility] -> micro lab -> blood Cx - [...] of low BPs :: normal TSH @ [facility] #Hypercalcemia, mild ::presented with CoCa 12.5; iCa 1.69; PTH <6.3 ::25-OH vit D 79 ::1.25-OH vit D, PTHrP, SPEP, urine Ca pending :: UPEP wnl ::TSH wnl at [facility] :: Endo following - follow SPEP, urine 24 hr Ca, PTHrP, 1.25-OH vit D levels - continue 200 ml/hr NS #Nicotine Use - Continue home Chantix #Subacute PARUL ::Cr ~1.6 on last admission, 1.48 on admission to [facility] 11/08 > 1.42, prior Cr in 03/2023 was 1.2; Cr 1.44 on presentation to ::On prior admission was evaluated for this with normal UA, CT with no hydronephrosis, felt to be 2/2 NSAID use for HS ::A1c and UA normal on admission at [facility] :: FeUrea 48.2% (>35=> suggestive of intrinsic renal disease) - Avoid nephrotoxic drug, hypotension, sepsis, dehydration - Continuing to encourage oral hydration and treat hypercalcemia #Bladder Calculi ::Incidentally noted on CT Pelvis from OSH, asymptomatic, max diam is 1.5 cm #Anemia :: Hgb 10.[address] [facility], Hgb 8.8 on admission, 8.3 today - no evidence of bleeding, pt is HD stable (Bps are soft at baseline per pt), no tachycardia, no neurological changes - will maintain active type and screen Isa Turner MD vice president planning, PGY-1 Cosigned by Claudio Plunkett MD at [...] Name: Kevan La Today's Date: 11/11/2024 Room: [address] [place] [address] Time Calculation Start Time: 1234 Stop Time: [...] abscess General: Reason for Referral: returning to [facility] 11/10/2024 as a transfer from [facility] regarding 14cm gluteal fluid collection, concern of sepsis. 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 Pt reports furniture walking at [facility]. 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 male [...] clindamycin, rifampin, augmentin and doxycycline, transferred from [facility] regarding 14cm gluteal fluid collection. He was [...] Updates: - Blood Cx from [facility] neg x 2 days; tissue Cx was never collected @ [facility] - ACS recommends no surgical intervention [...] 1.2; 1.3 on 11/10 :: [facility] Blood Cx 11/08 NGTD; Wound Cx were ordered, but not collected :: Blood Cx 11/10 NGTD Plan: - continue to follow BCx from [facility] -> micro lab -> blood Cx - [...] of low BPs :: normal TSH @ [facility] #Hypercalcemia, mild ::presented with CoCa 12.5; iCa 1.69; PTH <6.3 ::25-OH vit D 79 ::1.25-OH vit D, PTHrP, UPEP, SPEP, urine Ca pending ::TSH wnl at [facility] :: Endo following - follow UPEP, SPEP, urine 24 hr Ca, PTHrP, 1.25-OH vit D levels - continue 200 ml/hr NS #Nicotine Use - Continue home Chantix #Subacute PARUL ::Cr ~1.6 on last admission, 1.48 on admission to [facility] 11/08 > 1.42, prior Cr in 03/2023 was 1.2; Cr 1.44 on presentation to ::On prior admission was evaluated for this with normal UA, CT with no hydronephrosis, felt to be 2/2 NSAID use for HS ::A1c and UA normal on admission at [facility] :: FeUrea 48.2% (>35=> suggestive of intrinsic renal disease) - Avoid nephrotoxic drug, hypotension, sepsis, dehydration - Continuing to encourage oral hydration and treat hypercalcemia #Bladder Calculi ::Incidentally noted on CT Pelvis from OSH, asymptomatic, max diam is 1.5 cm #Anemia :: Hgb 10.[address] [facility], Hgb 8.8 on admission, 8.3 today - no evidence of bleeding, pt is HD stable (Bps are soft at baseline per pt), no tachycardia, no neurological changes - will maintain active type and screen Isa Turner MD vice president planning, PGY-1 Cosigned by Claudio Plunkett MD at [...] Gluteal abscess Payor: [facility] Discharge disposition: [facility] Potential Barriers: none ADOD: 3-4 days Per MD, pending plans from [facility]. Updated notes sent to facility and requested update if patient will need precert to return. Will continue to monitor for discharge planning needs. Julisa GARZA, feather stitcher Coordinator (TCC) [phone] Pharmacy Admission Order Reconciliation Review Kevan La [...] team at any time. Ti Mays PharmD [address] [facility], Room# [address] [place] [address] Please reach out via Secure Chat for questions, or if no response call [place] or [employer] (fka In[employer]) Pharmacy Medication History Review Kevan La is a 49 y.o. male admitted for No Principal Problem: There is no principal problem currently on the Problem List. Please update the Problem List and refresh.. Pharmacy reviewed the patient's [id number] medications and allergies for accuracy. Medications ADDED Multivitamin Ibuprofen OTC 200 mg Ensure plus Medications CHANGED Miralax Medications REMOVED/NOT TAKING Alteplase 2 mg Leda-colace The list below reflects the updated VACUUM PAN TENDER list. Prior to Admission Medications Prescriptions Last [...] at discharge. Pharmacy has been updated to [facility]. Sources [facility] Pharmacy dispense history Patient interview Good historian Chart Review Discharge summary 10/23/24 Additional Comments N/A Ti Mays PharmD [address] [place]. [facility], Room# [address] [place] [address] Please reach out via Secure Chat for questions, or if no response call [place] or [employer] (fka In[employer]) Vancomycin Dosing by Pharmacy- FOLLOW UP Kevan [...] on 11/12/2024 Exposure target: AUC24 (range)400-600 mg/L.hr [id number]: 500 mg/L.hr AUC24,ss: 488 mg/L.hr Probability of [...] clindamycin, rifampin, augmentin and doxycycline, transferred from [facility] regarding 14cm gluteal fluid collection. He was [...] - Follow BCx and Wound Cx from [facility] [phone] micro lab - [facility] Surgery consulted - [...] of low BPs :: normal TSH @ [facility] #Hypercalcemia, mild ::CoCa 12.5; iCa 1.69; PTH <6.3 ::25-OH vit D 79 ::1.25-OH vit D, PTHrP, UPEP, SPEP, urine Ca pending ::TSH wnl at [facility] - 1 L NS bolus given this AM, 200 ml/hr NS - PM RFP - Endo consulted, appreciate recommendations #Nicotine Use - Continue home Chantix #Subacute PARUL ::Cr ~1.6 on last admission, 1.48 on admission to [facility] 11/08 > 1.42, prior Cr in 03/2023 was 1.2; Cr 1.44 on presentation to ::On prior admission was evaluated for this with normal UA, CT with no hydronephrosis, felt to be 2/2 NSAID use for HS ::A1c and UA normal on admission at [facility] - Avoid nephrotoxic drug, hypotension, sepsis, dehydration - Continuing to encourage oral hydration #Bladder Calculi ::Incidentally noted on CT Pelvis from OSH, asymptomatic, max diam is 1.5 cm #Anemia :: Hgb 10.[address] [facility], Hgb 8.8 on admission - no evidence of bleeding, pt is HD stable (Bps are soft at baseline per pt), no tachycardia - will maintain active type and screen Evghenia Rine, MD vice president planning, PGY-1 Cosigned by Claudio Plunkett MD at [...] Arrangements Other (Comment) (Pt is from [facility]. Prior to his SNF stay, pt lived at home with his dog.) Support Systems Family members Assistance Needed Await PT/OT recommendations. Pt was at SNF for IV atbs and wound care. Type of Residence shelter facility Do you have animals or pets at home? No (Pt sent his dog to stay with his brother in [place].) Home or Post Acute Services Post acute facilities (Rehab/SNF/etc) Type of Post Acute Facility Services shelter Expected Discharge Disposition SNF Does the patient [...] were you homeless or living in a mcc (including now)? N Transportation Needs In the [...] Met with pt and introduced myself as care management specialist and member of the Care Transitions team for discharge planning. Pt was recently admitted from 10/10-10/23 for a gluteal abscess. Pt was discharged to [facility] (with pending Medicaid #[id number]) for IV atbs and wound care. Pt would like to return to [facility], if SNF is needed at discharge. Pt is currently receiving IV atbs, await PT/OT evaluations. Referral was sent to [facility] for return via [facility]. Prior to [...] at this time. Aida VELASQUEZ, RN- Transitional Card Fixer (TCC) [phone] documented in this encounter [facility] Work Phone: 11-27-2024 Hospital Discharge instructions Danna Soares MD - 11/27/2024 12:16 PM EDT Discharge Instructions Dear Kevan La, You were admitted to [facility] for your worsening gluteal wound and concern [...] at this dosing while you are at [facility]. The supportive oncology doctors will see you once you leave [facility] and will continue prescribing these medicines at that time. If you would like to pick out hand your medications from another pharmacy, ask your pharmacy to contact [facility] pharmacy to transfer over the prescriptions Appointments/Follow-Up: We have requested an automated system to call you to schedule; however if you do not hear from them in 3 days, please call [facility] appointment line: [phone] or to make the appointment yourself Dr. Jiang (oncology at [facility]) 11/29, 2:20pm Supportive oncology follow-up with Astrid Hawley on 12/17 at 1pm Please call and schedule appointment with your primary care doctor within 2 week, tell them that patient was recently admitted to the hospital. If you need to establish with new primary care doctor, please call and schedule an appointment with [facility]: phone: [phone] Lab work needed: No need to make appointment or have prescription. Please go to any labs to complete below None It was a pleasure taking care of you, Your Care Team documented in this encounter [facility] Work Phone: 11-26-2024 Miscellaneous Notes The patient's goals for the shift include The clinical goals for the shift include Pt. pain will be controlled this shift [id number] Over the shift, the patient's pain has [...] and discussed patient case with supportive oncology HEEL SHAPER, Omaira Clayton APRN and primary team. Patient with ongoing frequent PRN opioid requirements and suboptimally controlled pain. Plans for upcoming discharge. 24H Opioid Requirements Past 24h opioid requirements (11/24-11/25, 1904-2923): Fentanyl 50 mcg/h TD patch x 1 [...] medications to patient prior to discharge via [facility] pharmacy. Prescriptions will need to be [...] SIGNATURE: Nellie Douglass PharmD Palliative Medicine Clinical Supervisor Partial Denture Department Supportive Oncology Services PAGER/CONTACT: Contact information: Supportive and Palliative Oncology Monday-Monday 8 AM-5 PM [employer] or pager [phone]. After hours and weekends: pager [phone] Cosigned by TRAVIS Pinzon at 11/25/2024 1:08 [...] way of shared electronic medical record or [id number]. Medical complexity was high level due to due to complexity of problems, extensive data review, and high risk of management/treatment. I spent 15 minutes in the care of this patient which included chart review, interviewing patient/family, discussion with primary team, coordination of care, and documentation. Omaira Clayton APRN-NEHAL PATIENT: KEVAN LA : 1975 ADMIT DATE: 11/10/2024 3:29 AM DISCH DATE: RESPONDING PROVIDER #: [id number] PROVIDER RESPONSE TEXT: 11/15 punch biopsy taken [...] 3:29 AM DISCH DATE: RESPONDING PROVIDER #: [id number] PROVIDER RESPONSE TEXT: Anemia of chronic disease [...] unresponsive to multiple treatments was transferred from [facility] due to gluteal abscess, for which he [...] MD Hematology-Oncology Fellow, PGY4 Hematology Consult Pager: [phone] Problem: Skin Goal: Decreased wound size/increased tissue [...] man with refractory hidradenitis supprativa transferred from [facility] on 11/10/24 with worsening chronic gluteal wound [...] Mario RN Outcome: Progressing 11/17/20241814 by Lily aMrio RN Outcome: Progressing Goal: Prevent/minimize sheer/friction injuries [...] additional questions or concerns. SIGNATURE: Lynette Segovia, RANDALL-SLOT MACHINE KEY PERSON PAGER/CONTACT: Contact information: Supportive and Palliative Oncology Monday-Monday 8 AM-5 PM [employer] chat or pager [phone]. After hours and weekends: pager [phone] Brief heme note: Kevan La is a 49 y.o. male with PMHx of HS that is refractory and unresponsive to multiple treatments was transferred from [facility] due to gluteal abscess, for which he [...] MD Hematology-Oncology Fellow, PGY4 Hematology Consult Pager: [phone] Cosigned by Fransisca Diaz MD at 11/16/2024 [...] time: 1650 Event end time: 1800 Location: [facility]-a [] Triage by phone or secure messaging Rapid response initiated by: [] Rapid response RN [] Family [] Nursing Certified Prosthetist [x] Physician [] RADAR auto page [] Sepsis auto-page [x] RN [] RT [] HEEL SHAPER/PA [] Other: Primary reason for call: [] [...] time: 1510 Event end time: 1530 Location: [address] [] Triage by phone or secure messaging Rapid response initiated by: [] Rapid response RN [] Family [] Nursing Certified Prosthetist [] Physician [] RADAR auto page [] Sepsis auto-page [x] RN [] RT [] HEEL SHAPER/PA [] Other: Primary reason for call: [] [...] Ryland Win, PGY3 For IR consults, call [phone] (M-F 7a-5p) EMERGENT IR Pager: [phone] (M-F 5p-7a) (Sa, [place] 24hr) PATIENT: KEVAN LA : 1975 ADMIT DATE: 11/10/2024 3:29 AM DISCH DATE: RESPONDING PROVIDER #: [id number] PROVIDER RESPONSE TEXT: I agree with chief service observer diagnosis of Moderate malnutrition on 11/11/2024 CDI [...] suppurativa and gluteal abscess. Clinical Indicators: 11/11 Teacher Advisor consult: Moderate malnutrition related to acute disease or injury As Evidenced by: meeting < 75% of EER for > 1 week, mild fat loss and muscle wasting and 10.2% weight loss x approximately 3 weeks. 11/11 chief service observer note indicates pt eating poorly at SNF due to poor food quality and receives protein drink only intermittently. BMI 25.93 Treatment: Teacher Advisor consult recommending regular diet, Ensure Plus QD. Risk Factors: Refractory HS. Gluteal abscess. Eating poorly at SNF. Options provided: -- I agree with chief service observer diagnosis of Moderate malnutrition on 11/11/2024 -- [...] MD PGY-1 General Surgery Acute Care Surgery [id number] The patient's goals for the shift include [...] injury throughout shift documented in this encounter [facility] Work Phone: 11-26-2024 Nurse Note Wound care [...] controlled. Beata NEWTON documented in this encounter [facility] Work Phone: 11-22-2024 Consult note Associated Order [...] molecule JAK1 inhibitor), who was transferred from [facility] for a worsening of L gluteal [...] Vashe wound cleanser ([employer] order # [id number]). Pack with Vashe moistened wet to dry kerlix gauze cover with ABD pad and paper tape. Recommendation: BID for distal edge of growth on distal posterior left thigh. Cover wounds with Vashe wound cleanser ([employer] order #[id number]) soaked 4 x 4 cm sterile gauze for 1-5 minutes, then gently pat dry. Cover draining wounds with 2-3 layers of accordion folded Aquacel Ag then cover with ABD pad and paper tape. (DO not cover growth as it causes the patient discomfort. Recommendations: BID for left lateral hip. Cover wounds with Vashe wound cleanser ([employer] order #[id number]) soaked 4 x 4 cm sterile gauze for 1-5 minutes, then gently pat dry. Apply clindamycin as directed by dermatology. Cover draining wounds with Aquacel Ag (Silver) ([employer] order #[id number]) Cover with Mepilex border dressing. Wound Team Plan: While inpatient, Secure chat with questions or reconsult wound care if condition worsens or changes. For urgent communications please message the group through [employer] at: [facility] Wound Care Team, Thank [...] tentatively arrange follow-up with Dr. Jiang at [facility], pending transport capabilities of [...] MD Hematology-Oncology Fellow, PGY5 Hematology Consult Pager: [phone] Oncology Consult Pager: [phone] Cosigned by Sreedhar Jiang MD at 11/19/2024 [...] to continue his care with our team ([facility], [facility], [place]- Dr. Valentino). Associated Order(s): Inpatient consult to [...] integrative heme/onc services. Music therapy, art therapy, news content specialist and pet therapy offered to pt, pt [...] extremity venous duplex bilateral Result Date: 10/21/2024 [place] [id number] and Vascular Lab Report VAS US LOWER EXTREMITY VENOUS DUPLEX BILATERAL Patient Name: KEVAN Miranda Physician: [id number] Viki Colin MD Study Date: 10/21/2024 Ordering [id number] DELGADO Dhillon Physician: THELMA MRN/PID: [id number] Technologist: Javier Dhaliwal [facility] Technologist 2: Date of /Age: 9 1975 years Gender: M Admission Status: Inpatient Location [facility] Performed: Diagnosis/ICD: Pain in left leg-M79.605 CPT Codes: 67794 Peripheral venous duplex scan for DVT complete [...] Spontaneous/Phasic Peroneal Yes None PTV Yes None [id number] Viki Colin MD Final Bedside PICC Imaging [...] anxiety, fatigue, nausea, depression and pain. [facility] Integrative Medicine Symptom Management program [...] -Music therapy - pt agreeable; consult placed -Bioprocessing Manufacturing Technician - pt agreeable; consult placed -Pet therapy [...] of this patient. TRAVIS Patel (available by Humouno) [facility] Inpatient Integrative Medicine I spent 45 minutes in the care of this patient which included chart review, interviewing patient/family, discussion with primary team, coordination of care, and documentation. Medical Decision Making was high level due to high complexity of problems, extensive data review, and high risk of management/treatment. Associated Order(s): Inpatient consult to [facility] Adult Supportive Oncology SUPPORTIVE AND PALLIATIVE ONCOLOGY [...] medications to patient prior to discharge via [facility] pharmacy. Prescriptions will need to be sent 48-72 hours prior to discharge so that a prior authorization can be completed. Discharge date: unknown pending acute issues Patient does not qualify for an appointment with Outpatient Supportive Oncology- needs to establish with Oncology outpatient SIGNATURE: TRAVIS Rodas PAGER/CONTACT: Contact information: Supportive and Palliative Oncology Monday-Monday 8 AM-5 PM [employer] Secure chat or pager [phone]. After hours and weekends: pager [phone] Inpatient consult to [facility] Adult Supportive Oncology Consult performed by: TRAVIS Rodas Consult ordered by: Claudio Plunkett MD PALLIATIVE MEDICINE OUTPATIENT PROVIDER: None CURRENT ATTENDING PROVIDER: Claudio Plunkett MD Medical Oncologist: No care team truck driver to display Radiation Oncologist: No care team truck driver to display Primary Physician: No primary care [...] alone. Has supportive brother and parents in [place], [place]. 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 We will continue to follow. Please contact us for additional questions or concerns. SIGNATURE: TRAVIS Rodas PAGER/CONTACT: Contact information: Supportive and Palliative Oncology Monday-Monday 8 AM-5 PM [employer] Secure chat or pager [phone]. After hours and weekends: pager [phone] Associated Order(s): IP CONSULT TO HEMATOLOGY Name: [...] unresponsive to multiple treatments was transferred from [facility] due to gluteal abscess, for which he [...] Perry Baires 10/10/2024 5:20 PM Dictation workstation: [id number] === 10/10/24 === CT PELVIS W IV [...] as stated. This study was interpreted at [place], [place] Signed by: Beronica Valentin 10/10/2024 11:03 PM Dictation workstation: [id number] Assessment/Plan Kevan La is a 49 y.o. male with PMHx of refractory HS that is unresponsive to multiple treatments was transferred from [facility] due to left gluteal randell abscess, for [...] MD Hematology-Oncology Fellow, PGY4 Hematology Consult Pager: [phone] Cosigned by Fransisca Diaz MD at 11/15/2024 [...] Patient was then brought from SNF to [facility] on 11/08 due to concern for worsening L buttock and gluteal HS and possible sepsis. Patient was placed on vanc/zosyn for sepsis; wound and blood cx collected at that time show NGTD. CT scan from [facility] revealed large ulcerative wound in left [...] molecule JAK1 inhibitor), who was transferred from [facility] for a worsening of L gluteal [...] Vashe wound cleanser ([employer] order # [id number]). Pack with Vashe moistened wet to dry kerlix gauze cover with ABD pad and paper tape. 11/11/24 1700 Wound 09/13/24 Other (comment) Buttock Left Date First Assessed/Time First Assessed: 09/13/24 7175 Present on Original Admission: Yes Hand Hygiene [...] with Vashe wound cleanser ([employer] order #[id number]) soaked 4 x 4 cm sterile gauze for 1-5 minutes, then gently pat dry. Cover draining wounds with 2-3 layers of accordion folded Aquacel Ag then cover with ABD pad and paper tape. (DO not cover growth as it causes the patient discomfort. Wound location: Lateral Left hip Recommendations: BID Cover wounds with Vashe wound cleanser ([employer] order #[id number]) soaked 4 x 4 cm sterile gauze for 1-5 minutes, then gently pat dry. Apply clindamycin as directed by dermatology. Cover draining wounds with Aquacel Ag (Silver) ([employer] order #[id number]) Cover with Mepilex border dressing. Wound Team [...] reposition patient at least every 2 hours. Lroi Baires RN, CWON 11/11/2024 5:44 PM Associated [...] molecule JAK1 inhibitor), who was transferred from [facility] for a worsening of L gluteal [...] Per IM notes: Patient last admitted at [facility] 10/11 - 10/23/2024 for a similar complaint [...] He was discharged with PICC line to [facility] with plan to follow-up with Dermatology 11/12/2024 for HS-301 trial medication. On 11/08/2024 the patient was sent to [facility] from [facility] for possible sepsis. On arrival to the [...] his stay and he was transferred to [facility] for further care. The patient was seen [...] He was able to tolerate food at [facility]. Patient notes he has been bedbound for some time now, since at least 06/2023 which he attributes to weakness in his legs/feet. HS history: He reports a history of HS from 2016. Previous therapies include doxycycline, minocycline, isotretinoin, clindamycin/rifampin, Humira, Remicade, staph decolonization for mupirocin, moxifloxacin/metronidazole, and apremilast. He was being treated by [facility]. Pt reports that he has been [...] cultures. Will follow cultures already obtained at [facility] and will obtain tissue culture 11/12/24. [...] of left gluteal disease. Pt transferred from [facility] with worsened pain, swelling and drainage [...] , Vit B12: No results found for: [id number] Nutrition Specific Medications: Scheduled medications acetaminophen, 975 [...] Order(s): IP CONSULT TO ACUTE CARE SURGERY [facility] ACUTE CARE SURGERY - HISTORY AND PHYSICAL / CONSULT Patient Name: Kevan La Admit Date: [id number] : 1975 AGE: 49 y.o. GENDER: male TODAY'S ASSESSMENT AND PLAN OF CARE: 49 year old male with significant history of hidradenitis suppurativa, who recently underwent I&D with acute care surgery on 10/13, was transferred from [facility] with concern of a gluteal fluid collection. Acute care surgery was consulted for consideration of repeat I&D. Patient is currently hemodynamically stable. - No emergent surgical intervention indicated at this time. Will need to review imaging for possible mass vs infection before potential surgical intervention. Radiology imaging request sent for CT pelvis from [facility]. if not able to transfer imaging from [facility], may need repeat CT scan. Tadeo Cano MD PGY 5 General Surgery Acute Care Surgery [id number] CHIEF COMPLAINT/REASON FOR CONSULT: 49 year old male with significant history of hidradenitis suppurativa, who recently underwent I&D with acute care surgery on 10/13, was transferred from [facility] with concern of a gluteal fluid collection. Acute care surgery was consulted for consideration of repeat I&D. Briefly this patient has a history of refractory HS and did not respond to multiple lines of treatment. He was admitted to [facility] between 10/11-10/23 and underwent I&D on 10/13 for infection control. He had positive blood culture and was on antibiotics. He was eventually discharged to SNF. On 11/08 patient was brought to [facility] for concern of sepsis. He was [...] Need to review most recent CT from [facility] for comparison, radiology request sent. LABS: [...] of left gluteal disease. Pt transferred from [facility] with worsened pain, swelling and drainage [...] notable for wbc 11.8. CT report from [facility] notes concern for a 15cm enhancing gluteal mass however images not available. We have requested images from [facility] and will evaluate these prior to determining whether further drainage or biopsy are needed. Eitan Muhammad MD Trauma, Critical Care, and Acute Care Surgery Pager: [phone] Associated Order(s): Inpatient consult to Endocrinology Inpatient [...] 2/2 NSAIDs use for HS?, returning to [facility] 11/10/2024 as a transfer from [facility] regarding 14cm gluteal fluid collection. Notably the patient was recently admitted to [facility] 10/11 - 10/23/2024 for a similar complaint, imaging showed showed worsening infection in L. gluteus randell with serpiginous fluid pockets c/w abscess (9.2 x 5.7 x 13.2cm). He was started on broad spectrum iv antibiotics , underwent I&D with ACS on 10/13 c/b arterial bleed which was stitched. He was discharged with PICC line to [facility] with plan to follow-up with Dermatology 11/12/2024 for HS-301 trial medication. On 11/08/2024 the patient was sent to [facility] from [facility] for possible sepsis. On arrival to the [...] his stay and he was transferred to [facility] for further care. The patient was seen [...] He was able to tolerate food at [facility]. Patient notes he has been bedbound [...] weeks since he was transferred to the residential Denies any chest pain, shortness of breath, [...] was not receiving any PT at the residential. He also mentioned that his activity level [...] 2/2 NSAIDs use for HS?, returning to [facility] 11/10/2024 as a transfer from [facility] regarding 14cm gluteal fluid collection. Endocrinology consulted [...] MD Endocrinology fellow, PGY 5 Endocrinology pager [phone], secure message 8 AM to 5 PM. [...] on 11/10/2024 Exposure target: AUC24 (range)400-600 mg/L.hr XOA04-60: 380 mg/L.hr AUC24,ss: 507 mg/L.hr Probability of AUC24 > 400: 76 % Follow-up level tomorrow morning. Will continue to monitor renal function daily while on vancomycin and order serum creatinine at least every 48 hours if not already ordered. Follow for continued vancomycin needs, clinical response, and signs/symptoms of toxicity. Long Swain PharmD documented in this encounter [facility] Work Phone: 11-15-2024 Procedure note Associated Ord er(s): Biopsy Post-Procedure Diagnose(s): Skin lesion Biopsy Date/Time: 11/15/2024 11:31 AM Performed by: Brigitte Coy MD Authorized by: Lauri Mesa MD Consent: Consent obtained: Verbal Consent given by: Patient Risks, benefits, and alternatives were discussed: yes Risks discussed: Bleeding, infection, pain and poor cosmetic result Alternatives discussed: No treatment [place]ntelle protocol: Procedure explained and questions answered to [...] poor cosmetic result Alternatives discussed: No treatment [place]elle protocol: Procedure explained and questions answered to [...] Lauri Mesa MD documented in this encounter [facility] Work Phone: 11-10-2024 History and physical note History Of Present Illness Kevan La is a 49 y.o. male with refractory hidradenitis supprativa (HS) not responding to povorcitinib (RCT candidate), apremilast, isotretinoin, adalimumab, infliximab, moxifloxacin/metronidazole, minocyclin, clindamycin, rifampin, augmentin and doxycycline, returning to [facility] 11/10/2024 as a transfer from [facility] regarding 14cm gluteal fluid collection. Notably the patient was recently admitted to [facility] 10/11 - 10/23/2024 for a similar complaint [...] On 11/08/2024 the patient was sent to [facility] from [facility] for possible sepsis. On arrival to the [...] his stay and he was transferred to [facility] for further care. The patient was seen [...] He was able to tolerate food at [facility]. Patient notes he has been bedbound [...] Alb 2.5 A1c 11/08/2024: 5.2 UA 11/08/2024: [place] CT Pelvis 11/08/2024: There is a large [...] clindamycin, rifampin, augmentin and doxycycline, returning to [facility] 11/10/2024 as a transfer from [facility] regarding 14cm gluteal fluid collection. He was [...] on last admission, 1.48 on admission to [facility] 11/08 > 1.42, prior Cr in [...] Continue with antibiotics. documented in this encounter [facility] Work Phone: 11-09-2024 Note Internal Medicine: M [...] a 49 y.o. male that presented to [facility] on 11/08/2024 and was admitted for wound check. Patient arrived to [facility] from SNF fro possible sepsis related [...] here. Decision was to transfer patient to [facility] for further care. Of note, patient [...] to Address at Followup Visit: Not Applicable [facility] 11-09-2024 Hospital course Narrative Internal Medicine: [...] a 49 y.o. male that presented to [facility] on 11/08/2024 and was admitted for wound check. Patient arrived to [facility] from SNF fro possible sepsis related [...] here. Decision was to transfer patient to [facility] for further care. Of note, patient [...] 9:40 PM EST documented in this encounter [facility] 11-09-2024 Nurse Note transfer center called, stated still no bed are available but checking on if any changes in pt condition. Updated vitals given and isolation status confirmed. Enrique at the transfer center given unit phone number and he stated they will reach out when bed available. [facility] 11-09-2024 Nurse Note transfer center called, stated still no bed are available but checking on if any changes in pt condition. Updated vitals given and isolation status confirmed. Enrique at the transfer center given unit phone number and he stated they will reach out when bed available. documented in this encounter [facility] 11-09-2024 Plan of care note Problem: Knowledge [...] My discharge needs are met Outcome: Progressing [facility] 11-09-2024 Miscellaneous Notes Problem: Knowledge Deficit Goal: [...] met Outcome: Progressing documented in this encounter [facility] 11-09-2024 History of Present illness Narrative Patient [...] creatinine, and vancomycin levels interfaced automatically to [employer] and data has been analyzed and interpreted. [...] 16.4* ABGs: No results for input(s): PHART, LCU9JPK, PO2ART, IVX1CVU, SO2ART, E5CSCSUK in the last 72 hours. Lactic Acid: [...] 1:50 PM EST documented in this encounter [facility] 11-09-2024 Note Pharmacy to Dose Van comycin - Progress Note Lab Results Component Value Date CREATININE 1.42 (H) 11/09/2024 BUN 19 11/09/2024 WBC 13.0 (H) 11/09/2024 Doses, serum creatinine, and vancomycin levels interfaced automatically to [employer] and data has been analyzed and interpreted. [...] DATE: 11/09/24 TIME: 8:58 AM Kristy Ferguson [facility] Clinical Pharmacist Available via Secure Chat [facility] 11-09-2024 Note Med Team Progress No [...] 16.4* ABGs: No results for input(s): PHART, TCE7PAR, PO2ART, FXG4NQK, SO2ART, D3IQLRWA in the last 72 hours. Lactic Acid: [...] count of 634 (more content not included)... [facility] 11-09-2024 Emergency department Note This RN spoke to Enrique at [facility] for patient update. He stated that they are currently waiting for a bed assignment for the patient at [facility]. [facility] 11-09-2024 Emergency department Note This RN spoke to Enrique at [facility] for patient update. He stated that they [...] Resource Strain: Medium Risk (10/12/2024) Received from [facility] Overall Financial Resource Strain (CARDIA) Difficulty of Paying Living Expenses: Somewhat hard Food Insecurity: Food Insecurity Present (10/11/2024) Received from [facility] Hunger Vital Sign Worried About Running Out of Food in the Last Year: Sometimes true Ran Out of Food in the Last Year: Sometimes true Transportation Needs: No Transportation Needs (10/12/2024) Received from [facility] PRAPARE - Transportation Lack of Transportation (Medical): No Lack of Transportation (Non-Medical): No Intimate Partner Violence: Not At Risk (10/11/2024) Received from [facility] Humiliation, Afraid, Rape, and Kick questionnaire Fear of Current or Ex-Partner: No Emotionally Abused: No Physically Abused: No Sexually Abused: No Housing Stability: Low Risk (10/12/2024) Received from [facility] Housing Stability Vital Sign Unable to Pay for Housing in the Last Year: No Number of Times Moved in the Last Year: 1 Homeless in the Last Year: No Recent Concern: Housing Stability - High Risk (09/17/2024) Received from [facility] Housing Stability Vital Sign Unable to Pay [...] Procedure Abnormality Status --------- ------ Culture, Aerobic Bacteri...[[id number]] Anaerobic culture[[id number]] Please view results for these tests on the individual orders. CULTURE, AEROBIC BACTERIA WITH GRAM STAIN CULTURE ANAEROBIC CBC WITH AUTO DIFFERENTIAL COMPREHENSIVE METABOLIC PANEL LACTIC ACID WITH REFLEX COMPLETE URINALYSIS WITH REFLEX TO CULTURE Narrative: The following orders were created for panel order Urinalysis Complete with reflex to Culture. Procedure Abnormality Status --------- ------ Complete Urinalysis[[id number]] Please view results for these tests on [...] MD (electronically signed) Emergency Medicine Provider Juvenal Firero MD Resident 11/08/24 [id number] Cosigned by Fer Kennedy MD at 11/08/2024 6:55 PM EST Emergency Department Encounter [facility] EMERGENCY DEPT Patient: Kevan La : [...] pressure and wound check. Patient coming from [facility] for possible sepsis. Patient has chronic [...] for clarification.) Fer Kennedy MD Acute Care [facility] Fer Kennedy MD 11/08/24 1651 documented in this encounter [facility] 11-08-2024 Consult note Formatting of th is [...] creatinine, and vancomycin levels interfaced automatically to [employer] and data has been analyzed and interpreted. [...] Pharmacist Available via Secure Chat [facility] 11-08-2024 Consult note Formatting of [...] creatinine, and vancomycin levels interfaced automatically to [employer] and data has been analyzed and interpreted. [...] via Secure Chat documented in this encounter [facility] [facility] 11-08-2024 Emergency department Note Provider messaged about BP and MAP [facility] 11-08-2024 Emergency department Note Provider messaged about orders [facility] 11-08-2024 History and physical note Internal Medicine: Med Team Initial History and Physical Kevan La : 1975(49 y.o.) Date: November 08, 2024 TEAM: B Attending: Dr. Larios Subjective: Chief Complaint: Wound Check HPI Kevan La is a 49 y.o. male with PMH chronic hidradenitis suppurativa that presented to [facility] on 11/08/2024 from [facility]. Patient was seen at for severe at [...] follow-up with dermatology 11/12/2024. Patient arrived to [facility] ED from [facility] for possible sepsis related to chronic hidradenitis affecting mostly his left hip and going down into his left thigh. At [facility] nurse noted that his wounds were draining [...] 16.5* ABGs: No results for input(s): PHART, GFJ8MQV, PO2ART, VLH8BWR, SO2ART, J9AXLTOX in the last 72 hours. Lactic Acid: [...] nowOverweight (BMI 25-29.9) - Disposition: Admit to [facility]. - Given the signs and symptoms [...] care. - he is well-known at in [place], and they will accept transfer of the pt when a bed is available. [facility] 11-08-2024 Note Attestation signed by Paulino Larios [...] care. - he is well-known at in [place], and they will accept transfer of the pt when a bed is available. Internal Medicine: Med Team Initial History and Physical Kevan La : 1975(49 y.o.) Date: November 08, 2024 TEAM: Isidro Attending: Dr. Larios Subjective: Chief Complaint: Wound Check HPI Kevan La is a 49 y.o. male with PMH chronic hidradenitis suppurativa that presented to [facility] on 11/08/2024 from [facility]. Patient was seen at for severe at [...] follow-up with dermatology 11/12/2024. Patient arrived to [facility] ED from [facility] for possible sepsis related to chronic hidradenitis affecting mostly his left hip and going down into his left thigh. At [facility] nurse noted that his wounds were draining [...] 1900 BP: 76/ (more content not included)... [facility] 11-08-2024 History and physical note Internal Medicine: Med Team Initial History and Physical Kevannicolasa La : 1975(49 y.o.) Date: November 08, 2024 TEAM: Isidro Attending: Dr. Larios Subjective: Chief Complaint: Wound Check HPI Kevan La is a 49 y.o. male with PMH chronic hidradenitis suppurativa that presented to [facility] on 11/08/2024 from [facility]. Patient was seen at for severe at [...] follow-up with dermatology 11/12/2024. Patient arrived to [facility] ED from [facility] for possible sepsis related to chronic hidradenitis affecting mostly his left hip and going down into his left thigh. At [facility] nurse noted that his wounds were draining [...] 16.5* ABGs: No results for input(s): PHART, TKC2WYQ, PO2ART, JIE7EYT, SO2ART, S8PILDVM in the last 72 hours. Lactic Acid: [...] nowOverweight (BMI 25-29.9) - Disposition: Admit to [facility]. - Given the signs and symptoms [...] care. - he is well-known at in [place], and they will accept transfer of the pt when a bed is available. documented in this encounter [facility] 11-08-2024 Emergency department Note Patient requested pain medication and dinner. This nurse messaged provider [facility] 11-08-2024 Emergency department Note Patient is aware of patients BP and MAP. [facility] 11-08-2024 Emergency department Note Liter of NS hung for systolic of 88. IV obtained with blood work and first set of cultures. Will notify doctor of BP. [facility] 11-08-2024 Physician Emergency department Note [...] Resource Strain: Medium Risk (10/12/2024) Received from [facility] Overall Financial Resource Strain (CARDIA) Difficulty of Paying Living Expenses: Somewhat hard Food Insecurity: Food Insecurity Present (10/11/2024) Received from [facility] Hunger Vital Sign Worried About Running Out of Food in the Last Year: Sometimes true Ran Out of Food in the Last Year: Sometimes true Transportation Needs: No Transportation Needs (10/12/2024) Received from [facility] PRAPARE - Transportation Lack of Transportation (Medical): No Lack of Transportation (Non-Medical): No Intimate Partner Violence: Not At Risk (10/11/2024) Received from [facility] Humiliation, Afraid, Rape, and Kick questionnaire Fear of Current or Ex-Partner: No Emotionally Abused: No Physically Abused: No Sexually Abused: No Housing Stability: Low Risk (10/12/2024) Received from [facility] Housing Stability Vital Sign Unable to Pay for Housing in the Last Year: No Number of Times Moved in the Last Year: 1 Homeless in the Last Year: No Recent Concern: Housing Stability - High Risk (09/17/2024) Received from [facility] Housing Stability Vital Sign Unable to Pay [...] Procedure Abnormality Status --------- ------ Culture, Aerobic Bacteri...[[id number]] Anaerobic culture[[id number]] Please view results for these tests on the individual orders. CULTURE, AEROBIC BACTERIA WITH GRAM STAIN CULTURE ANAEROBIC CBC WITH AUTO DIFFERENTIAL COMPREHENSIVE METABOLIC PANEL LACTIC ACID WITH REFLEX COMPLETE URINALYSIS WITH REFLEX TO CULTURE Narrative: The following orders were created for panel order Urinalysis Complete with reflex to Culture. Procedure Abnormality Status --------- ------ Complete Urinalysis[[id number]] Please view results for these tests on [...] Medicine Provider Juvenal Fierro MD Resident 11/08/24 0408 Cosigned by Fer Kennedy MD at 11/08/2024 6:55 PM EST [employer] Phone: 11-08-2024 Physician Emergency department Note Emergency Department Encounter [facility] EMERGENCY DEPT Patient: Kevan La : [...] pressure and wound check. Patient coming from [facility] for possible sepsis. Patient has chronic [...] dictating provider for clarification.) Fer Kennedy MD [facility] Fer Kennedy MD 11/08/24 5576 [employer] Phone: 10-23-2024 Nurse Note Transport forgot paper chart- all chart information, including script faxed to [facility]- fax #[phone] ATTENTION : NURSE MAGNUS This nurse called report to Magnus RN at [facility]-the facility of choice by patient. Patient leaving with PICC in place in [facility] dated 10/20/24. Script for pain medications in [...] dsg twice daily. documented in this encounter [facility] Work Phone: 10-23-2024 Miscellaneous Notes Problem: Pain [...] rifampin, augmentin and doxycycline. He came to [facility] ED with severe HS and associated deep [...] Nephropathy - Cr 1.69 on admission - senior living NSAID use for HS, most recently was [...] rifampin, augmentin and doxycycline. He came to [facility] ED with severe HS and associated deep [...] Nephropathy - Cr 1.69 on admission - senior living NSAID use for HS, most recently was [...] Labs, ECG/Telemetry: Yes Risks/Benefits/Alternatives Discussed with Patient/POA/Legal Gift Shop Manager: Yes Stop Sign on Door: Yes Time [...] Yes Tip Location:SVC Line Confirmation: ECG Lot #:[id number] Crime Scene Investigator: Bard PICC Line Exp Date:07/18/2025 Securement: Stat Lock Post Procedure Checklist: Handoff with RN; Obtain all new IV tubing prior to use; Bed at lowest level and wheels locked; Line discharge information at bedside. Additional Details: Line was inserted using Modified Seldinger's Technique. Placed by: Shreya Bailey RN-[facility] Associated Problem(s): Abscess Kevan La is a 49 y.o. male with refractory hidradenitis supprativa (HS) not responding to povorcitinib (RCT candidate), apremilast, isotretinoin, adalimumab, infliximab, moxifloxacin/metronidazole, minocyclin, clindamycin, rifampin, augmentin and doxycycline. He came to [facility] ED with severe HS and associated deep [...] Nephropathy - Cr 1.69 on admission - senior living NSAID use for HS, most recently was [...] of protein and daily nutrients to also insulation helper in healing. Problem: Pain - Adult [...] rifampin, augmentin and doxycycline. He came to [facility] ED with severe HS and associated deep [...] Nephropathy - Cr 1.69 on admission - senior living NSAID use for HS, most recently was [...] rifampin, augmentin and doxycycline. He came to [facility] ED with severe HS and associated deep [...] Nephropathy - Cr 1.69 on admission - long term acute care registered nurse NSAID use for HS, most recently was [...] rifampin, augmentin and doxycycline. He came to [facility] ED with severe HS and associated deep [...] Nephropathy - Cr 1.69 on admission - senior living NSAID use for HS, most recently was [...] rifampin, augmentin and doxycycline. He came to [facility] ED with severe HS and associated deep [...] Nephropathy - Cr 1.69 on admission - senior living NSAID use for HS, most recently was [...] Cabrera MD PGY1 Acute Care Surgery Pager [phone] The patient's goals for the shift include [...] rifampin, augmentin and doxycycline. He came to [facility] ED with severe HS and associated deep [...] Nephropathy - Cr 1.69 on admission - senior living NSAID use for HS, most recently was [...] rifampin, augmentin and doxycycline. He came to [facility] ED with severe HS and associated deep [...] 1.69 on admission (1.44 on 09/13/2024) - long term acute care registered nurse NSAID use for HS, most recently was [...] rifampin, augmentin and doxycycline. He came to [facility] ED with severe HS and associated deep [...] 1.69 on admission (1.48 on 09/12/2024) - senior living NSAID use for HS, most recently was [...] Thierno Chavis MD PGY-2 General Surgery ACS [id number] Rapid Response Nurse Note: RADAR alert: 6 Pager time: [phone] Arrival time: 1124 Event end time: 1156 Location: 2075 [] Triage by phone or secure messaging Rapid response initiated by: [] Rapid response RN [] Family [] Nursing Certified Prosthetist [] Physician [x] RADAR auto page [] Sepsis auto-page [] RN [] RT [] HEEL SHAPER/PA [] Other: Primary reason for call: [] [...] Note Date: 10/10/2024 - 10/13/2024 OR Location: [facility] OR Name: Kevan La, : 1975, Age: 49 y.o., , Sex: male Diagnosis Pre-op Diagnosis * Hidradenitis suppurativa [L73.2] Post-op Diagnosis * Hidradenitis suppurativa [L73.2] Procedures INCISION AND DRAINAGE, THIGH 91804 - KS I&D DEEP ABSC BURSA/HEMATOMA THIGH/KNEE REGION Surgeons * Momo Dougherty - Primary Resident/Fellow/Other Electrician'S Helper: Surgeons and Role: * Thierno Chavis MD - Resident - Assisting Staff: Histopath Tech: Magda Scrub Person: Mack Anesthesia Staff: Anesthesiologist: Kristy Clarke MD Rn Surgical Pcu: Chelle Singh MD Procedure Summary Anesthesia: General [...] operating room availability. Please make patient NPO @NE. Will obtain consent in AM. D/w Dr. Ladonna Cahvis MD PGY-2 Gen Surg ACS [id number] Cosigned by Momo Dougherty MD at 10/13/2024 [...] rifampin, augmentin and doxycycline. He came to [facility] ED with severe HS and associated deep [...] 1.69 on admission (1.48 on 09/12/2024) - senior living NSAID use for HS, most recently was [...] rifampin, augmentin and doxycycline. He came to [facility] ED with severe HS and associated deep [...] course of Unasyn. documented in this encounter [facility] Work Phone: 10-22-2024 History of Present illness Narrative 10/22/24 1536 Discharge Planning Expected Discharge Disposition SNF ([facility]) What day is the transport expected? 10/23/24 What time is the transport expected? 1400 Transport confirmed via [facility] ([phone]), N2N # [phone], 100 cabrera. Medical team, pt's RN, and resource RN aware. Kevan La is a 49 y.o. male on day 11 of admission presenting with Gluteal abscess. Pt is medically ready. TCC confirmed with pt that he is agreeable to [facility] if able to accept as they are possibly the only accepting SNF at this time with a pending Medicaid #. 1538-Per HRS, pt's pending Medicaid # is [id number]. [facility] also sent [facility] pt's Medicaid application as requested. 1544-[facility] confirmed 7000 completed and able to accept pt. TCC will work on transport. Physical Therapy Physical Therapy Treatment Patient Name: Kevan La Department: [place] [address] Room: -A Today's Date: 10/22/2024 Time Calculation [...] on L buttocks while sitting Outcome Measures: [facility] Basic Mobility Turning from your back [...] rifampin, augmentin and doxycycline. He came to [facility] ED with severe HS and associated deep [...] Nephropathy - Cr 1.69 on admission - long term acute care registered nurse NSAID use for HS, most recently was [...] rifampin, augmentin and doxycycline. He came to [facility] ED with severe HS and associated deep [...] Nephropathy - Cr 1.69 on admission - senior living NSAID use for HS, most recently was [...] 35 minutes in professional medical decision making, jwzw-ru-ljfj examination and counseling, care coordination, chart review, [...] rifampin, augmentin and doxycycline. He came to [facility] ED with severe HS and associated deep [...] Nephropathy - Cr 1.69 on admission - senior living NSAID use for HS, most recently was [...] 35 minutes in professional medical decision making, aibe-ng-cmsm examination and counseling, care coordination, chart review, discussions with consultants, and care planning Transitional Card Fixer Progress Note: Contacted pt to obtain his SNF FOC. Pt is interested in [facility] (able to accept) and [facility] (interested). [facility] will contact pt to complete a Medicaid questionnaire and awaiting [facility] liaison to review. Plan to follow up with SNFs on Monday. Also, plan to follow up with HRS to obtain a pending Medicaid number. relations coordinator will continue to follow for discharge planning needs. Aida Sommer MSN, RN- Transitional Card Fixer (TCC) [phone] Vancomycin Dosing by Pharmacy- Cessation of Therapy [...] (Rehab/SNF/etc) Type of Post Acute Facility Services shelter Expected Discharge Disposition SNF Per [facility] SN[facility] confirmed they are able to accept pt with pending Medicaid number, [facility], [facility], [facility] and [facility] SNF's are still reviewing. Update on acceptance requested from the reviewing SNF's, all SNF's were updated pt will discharge on IV Vanco every 12 hours + IV Unasyn every 6 hours with wound care BID. Pt was updated regarding the accepting SNF, and 4 reviewing SNF's, he stated he will look into these facilities and provide FOC tomorrow. Pt will need pending [place] Medicaid number and 7000 form prior to discharge. Care Transitions team will continue to follow for discharge planning needs. Lorenza Morales RN Transitional Card Fixer (TCC) [phone] or [id number] Vancomycin Dosing by Pharmacy- FOLLOW UP Kevan [...] on 10/19/2024 Exposure target: AUC24 (range)400-600 mg/L.hr LCI06-02: 447 mg/L.hr AUC24,ss: 474 mg/L.hr Probability of [...] ID Fellow. For new consults, contact pager [phone]. EPIC chat preferred. Ivette Pina MD I [...] rifampin, augmentin and doxycycline. He came to [facility] ED with severe HS and associated deep [...] Nephropathy - Cr 1.69 on admission - senior living NSAID use for HS, most recently was [...] 35 minutes in professional medical decision making, alvk-ks-fcbq examination and counseling, care coordination, chart review, [...] rifampin, augmentin and doxycycline. He came to [facility] ED with severe HS and associated deep [...] Nephropathy - Cr 1.69 on admission - long term acute care registered nurse NSAID use for HS, most recently was [...] 40 minutes in professional medical decision making, ltbo-zb-cozt examination and counseling, care coordination, chart review, [...] choice. Pt made choices as follows. 1st [facility]nd [facility] 3rd [facility] and 4th [facility]. [facility] 1730 This TCC followed up with pt that none of the facilities accepted the pt.Pt agreeable for blanket referral to be made to see who can accept pending medicaid number and then pt can choose from those facilities. [place] referral made. TCC to follow up with discharge planning. Usman Spann PRN, [facility] [phone] [email or web address] Kevan La is a 49 [...] non tender, no organomegaly was appreciated. 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 No gross focal deficits appreciated. [...] ID Fellow. For new consults, contact pager [phone]. Nulogy chat preferred. I saw and evaluated the [...] final ID reccs for abx. Payer: no insurance-[facility] can accept for [place] Medicaid Status: inpatient Discharge disposition: ?SNF-If IV abx and wound needed Potential Barriers: no insurance ADOD: 10/18 8774-TCC spoke to pt about possible DC plans. Pt states he would be agreeable to go to a SNF that accepts a pending Medicaid # for wound care and if IV abx is needed. 9047-TCC requested a pending Medicaid # from [facility]-medical team updated. [facility] ACUTE CARE SURGERY - PROGRESS NOTE [...] Surg Acute Care Surgery Service Team Pager: [phone] CHIEF COMPLAINT / EVENTS LAST 24HRS / [...] on 10/17/2024 Exposure target: AUC24 (range)400-600 mg/L.hr [id number]: 443 mg/L.hr AUC24,ss: 447 mg/L.hr Probability of [...] regimen. This dosing regimen is predicted by [employer] to result in the following pharmacokinetic parameters: Regimen: 750 mg IV every 12 hours. Exposure target: AUC24 (range)400-600 mg/L.hr [id number]: 443 mg/L.hr AUC24,ss: 448 mg/L.hr Probability of [...] rifampin, augmentin and doxycycline. He came to [facility] ED with severe HS and associated deep [...] Nephropathy - Cr 1.69 on admission - long term acute care registered nurse NSAID use for HS, most recently was [...] 40 minutes in professional medical decision making, yglp-zm-snlq examination and counseling, care coordination, chart review, [...] rifampin, augmentin and doxycycline. He came to [facility] ED with severe HS and associated deep [...] Nephropathy - Cr 1.69 on admission - senior living NSAID use for HS, most recently was [...] 40 minutes in professional medical decision making, trdm-zv-vezs examination and counseling, care coordination, chart review, discussions with consultants, and care planning [facility] ACUTE CARE SURGERY - PROGRESS NOTE [...] PGY1 Acute Care Surgery Service Team Pager: [phone] CHIEF COMPLAINT / EVENTS LAST 24HRS / [...] of admission presenting with Gluteal abscess. Per [facility], patient has been screened from a previous date of service and accepted for possible [place] Medicaid. We are pending copies of his paystubs and will continue to follow up with him to obtain. [facility] states for TCC to notify them on the day of discharge and they will send a letter to [facility] so pt can receive his medications. Medical team aware. 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..] PGY1 Acute Care Surgery Service Team Pager: [phone] CHIEF COMPLAINT / EVENTS LAST 24HRS / [...] rifampin, augmentin and doxycycline. He came to [facility] ED with severe HS and associated deep [...] Nephropathy - Cr 1.69 on admission - senior living NSAID use for HS, most recently was [...] 40 minutes in professional medical decision making, grde-mx-hdmc examination and counseling, care coordination, chart review, [...] rifampin, augmentin and doxycycline. He came to [facility] ED with severe HS and associated deep [...] 1.69 on admission (1.44 on 09/13/2024) - long term acute care registered nurse NSAID use for HS, most recently was [...] on 10/14/2024 Exposure target: AUC24 (range)400-600 mg/L.hr [id number]: 425 mg/L.hr AUC24,ss: 416 mg/L.hr Probability of [...] response, and signs/symptoms of toxicity. Alberto BarclayD [facility] ACUTE CARE SURGERY - PROGRESS NOTE [...] Maurice Chavis MD PGY-2 Gen Surg ACS [id number] CHIEF COMPLAINT / EVENTS LAST 24HRS / [...] rifampin, augmentin and doxycycline. He came to [facility] ED with severe HS and associated deep [...] 1.69 on admission (1.48 on 09/12/2024) - senior living NSAID use for HS, most recently was [...] were you homeless or living in a mcc (including now)? N Transportation Needs In the [...] 10/15 at 1:30pm with Sharron Flaherty at ([phone]) PHARMACY: [facility] [place] [place]: denies EQUIPMENT USED [...] rifampin, augmentin and doxycycline. He came to [facility] ED with severe HS and associated deep [...] 1.69 on admission (1.48 on 09/12/2024) - long term acute care registered nurse NSAID use for HS, most recently was [...] on 10/12/2024 Exposure target: AUC24 (range)400-600 mg/L.hr [id number]: 465 mg/L.hr AUC24,ss: 514 mg/L.hr Probability of [...] and signs/symptoms of toxicity. Arianna Mir PharmD [facility] ACUTE CARE SURGERY - PROGRESS NOTE [...] [place] and we will consent in AM. [facility] [id number] CHIEF COMPLAINT / EVENTS LAST 24HRS / [...] rifampin, augmentin and doxycycline. He came to [facility] ED with severe HS and associated deep [...] 1.69 on admission (1.48 on 09/12/2024) - senior living NSAID use for HS, most recently was [...] for Hidradenitis suppurativa. Pharmacy reviewed the patient's bapyc-wh-eloyqmaww medications and allergies for accuracy. Medications ADDED: Ibuprofen Ferrous sulfate Vitamin D3 Medications CHANGED: none Medications REMOVED: none The list below reflects the updated VACUUM PAN TENDER list. Prior to Admission Medications Prescriptions Last Dose Informant Study STOP-HS1 [id number] povorcitinib 45mg or 75mg tablet 10/10/2024 Morning [...] Allergies Patient accepts M2B at discharge. Sources: [facility] Pharmacy dispense history Patient interview Moderate historian Chart Review ID note from 09/24 Dermatology note from 09/30 Care Everywhere Additional Comments: Pt states that many pain medications are ineffective would like something prior to being discharge Connie Choi PharmD Transitions of Care Pharmacist 10/11/24 Secure Chat preferred If no response call [place] or [employer] Kevan La is a 49 y.o. male [...] planning. MIGUEL Sheppard documented in this encounter [facility] Work Phone: 10-21-2024 Hospital Discharge instructions Delilah [...] us take part in your care! - [facility] documented in this encounter [facility] Work Phone: 10-18-2024 Consult note Associated Order [...] on 10/18/2024 Exposure target: AUC24 (range)400-600 mg/L.hr AEO66-70: 413 mg/L.hr AUC24,ss: 458 mg/L.hr Probability of [...] small molecule checkpoint inhibitor), presented on 09/2021 [facility] with a complaint of fatigue and weakness [...] and apremilast. He was being treated by [facility]. Pt reports that he has been [...] pain (1 - 3). 10/10/2024 Study STOP-HS1 [id number] povorcitinib 45mg or 75mg tablet Take 1 [...] 30 packet 0 Not Taking Study STOP-HS1 [id number] povorcitinib 45mg or 75mg tablet Take 1 tablet by mouth once daily. Preferably in the morning, with a full glass of water. 31 tablet 0 Study STOP-HS1 [id number] povorcitinib 45mg or 75mg tablet Take 1 tablet by mouth once daily. Preferably in the morning, with a full glass of water. 31 tablet 0 Study STOP-HS1 [id number] povorcitinib 45mg or 75mg tablet Take 1 tablet by mouth once daily. Preferably in the morning, with a full glass of water. 62 tablet 0 Study STOP-HS1 [id number] povorcitinib 45mg or 75mg tablet Take 1 tablet by mouth once daily. Preferably in the morning, with a full glass of water. 62 tablet 0 Study STOP-HS1 [id number] povorcitinib 45mg or 75mg tablet Take 1 tablet by mouth once daily. Preferably in the morning, with a full glass of water. 62 tablet 0 Study STOP-HS1 [id number] povorcitinib 45mg or 75mg tablet Take 1 tablet by mouth once daily. Preferably in the morning, with a full glass of water. 62 tablet 0 Study STOP-HS1 [id number] povorcitinib 45mg, 75mg or placebo tablet Take 1 tablet by mouth once daily. Preferably in the morning, with a full glass of water. 31 tablet 0 Study STOP-HS1 [id number] povorcitinib 45mg, 75mg or placebo tablet Take 1 tablet by mouth once daily. Preferably in the morning, with a full glass of water. 31 tablet 0 Study STOP-HS1 [id number] povorcitinib 45mg, 75mg or placebo tablet Take 1 tablet by mouth once daily. Preferably in the morning, with a full glass of water. 31 tablet 0 Study STOP-HS1 [id number] povorcitinib 45mg, 75mg or placebo tablet Take [...] non tender, no organomegaly was appreciated. 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 No gross focal deficits appreciated. [...] Final No results found for: HIV1X2, HIVCONF, WMLKXG7ZX No results found for: HEPCABINIT, HEPCAB, HCVPCRQUANT [...] from the skin abnormality into the gluteus ranedll muscle. Large area of phlegmon/abscess within the [...] ID Fellow. For new consults, contact pager [phone]. [place] preferred. I spent 45 minutes in the [...] note. Daylin Duran MD (please reach through [employer]) Infectious Diseases, Senior Attending Physician Nutrition Assessment [...] morning: potatoes, scrambled eggs with cheese, an Italian muffin with butter and jelly and orange [...] , Vit B12: No results found for: [id number] Nutrition Specific Medications: Scheduled medications acetaminophen, 975 [...] rifampin, augmentin and doxycycline. He came to [facility] ED with severe HS and associated deep seated tissue infection. Wound Assessment: Wound 09/13/24 Other (comment) Buttock Left (Active) Wound Image 10/11/24 144 Site Assessment Yellow;[place];Painful;Denuded;Indur ation;Granulation;Fibrinous;Swell ing 10/11/24 1444 Wound Length (cm) [...] for HS. Patient was recently admitted to [facility] 09/13-09/17 for the same [...] and apremilast. He was being treated by [facility]. Pt reports that he has been [...] Yellow, Dark-Yellow Appearance, Urine Clear Clear Specific Scott, Urine 1.037 (N) 1.005 - 1.035 pH, [...] PGY2, Dermatology Epic chat (preferred) Team pager [phone] I saw and evaluated the patient. I [...] Q12H This dosing regimen is predicted by [employer] to result in the following pharmacokinetic parameters: Regimen: 750 mg IV every 12 hours. Start time: 23:41 on 10/10/2024 Exposure target: AUC24 (range)400-600 mg/L.hr YCJ10-21: 316 mg/L.hr AUC24,ss: 465 mg/L.hr Follow-up level tomorrow with AM labs. Will continue to monitor renal function daily while on vancomycin and order serum creatinine at least every 48 hours if not already ordered. Follow for continued vancomycin needs, clinical response, and signs/symptoms of toxicity. Long Swain PharmD Associated Order(s): IP CONSULT TO ACUTE CARE SURGERY [facility] ACUTE CARE SURGERY - HISTORY AND [...] Dr. Maurice Magana MD PGY-4 General Surgery [facility] [id number] CHIEF COMPLAINT/REASON FOR CONSULT: 49M with PMH [...] 30 minutes after. 09/20/24 10/20/24 Ronna Carpenter APRN-SLOT MACHINE KEY PERSON nicotine polacrilex (Nicorette) 2 mg gum Chew [...] 09/18/24 10/18/24 Lia Prado MD Study STOP-HS1 [id number] povorcitinib 45mg or 75mg tablet Take 1 tablet by mouth once daily. Preferably in the morning, with a full glass of water. 02/29/24 Kimber Last MD Study STOP-HS1 [id number] povorcitinib 45mg or 75mg tablet Take 1 tablet by mouth once daily. Preferably in the morning, with a full glass of water. 04/04/24 Kimber Last MD Study STOP-HS1 [id number] povorcitinib 45mg or 75mg tablet Take 1 tablet by mouth once daily. Preferably in the morning, with a full glass of water. 04/12/24 Kimber Last MD Study STOP-HS1 [id number] povorcitinib 45mg or 75mg tablet Take 1 tablet by mouth once daily. Preferably in the morning, with a full glass of water. 05/27/24 Marlon Christiansen MD Study STOP-HS1 [id number] povorcitinib 45mg or 75mg tablet Take 1 tablet by mouth once daily. Preferably in the morning, with a full glass of water. 07/08/24 Marlon Christiansen MD Study STOP-HS1 [id number] povorcitinib 45mg or 75mg tablet Take 1 tablet by mouth once daily. Preferably in the morning, with a full glass of water. 08/20/24 Marlon Christiansen MD Study STOP-HS1 [id number] povorcitinib 45mg or 75mg tablet Take 1 tablet by mouth once daily. Preferably in the morning, with a full glass of water. 09/30/24 Marlon Christiansen MD Study STOP-HS1 [id number] povorcitinib 45mg, 75mg or placebo tablet Take 1 tablet by mouth once daily. Preferably in the morning, with a full glass of water. 12/11/23 Kimber Last MD Study STOP-HS1 [id number] povorcitinib 45mg, 75mg or placebo tablet Take 1 tablet by mouth once daily. Preferably in the morning, with a full glass of water. 12/29/23 Kimber Last MD Study STOP-HS1 [id number] povorcitinib 45mg, 75mg or placebo tablet Take 1 tablet by mouth once daily. Preferably in the morning, with a full glass of water. 01/16/24 Kimber Last MD Study STOP-HS1 [id number] povorcitinib 45mg, 75mg or placebo tablet Take [...] Terrence Richards DO documented in this encounter [facility] Work Phone: 10-13-2024 History and physical note H&P reviewed. The patient was examined and there are no changes to the H&P. Pt reassessed: plan for I&D today Cosigned by Momo Dougherty MD at 10/13/2024 7:22 PM EST Source Note - Diane Magana MD - 10/10/2024 11:27 PM EST [facility] ACUTE CARE SURGERY - HISTORY AND [...] Maurice Magana MD PGY-4 General Surgery [facility] [address] CHIEF COMPLAINT/REASON FOR CONSULT: 49M with PMH [...] 30 minutes after. 09/20/24 10/20/24 Ronna Carpenter, MORTAR MAN-SLOT MACHINE KEY PERSON nicotine polacrilex (Nicorette) 2 mg gum Chew [...] 09/18/24 10/18/24 Lia Prado MD Study STOP-HS1 [id number] povorcitinib 45mg or 75mg tablet Take 1 tablet by mouth once daily. Preferably in the morning, with a full glass of water. 02/29/24 Kimber Last MD Study STOP-HS1 [id number] povorcitinib 45mg or 75mg tablet Take 1 tablet by mouth once daily. Preferably in the morning, with a full glass of water. 04/04/24 Kimber Last MD Study STOP-HS1 [id number] povorcitinib 45mg or 75mg tablet Take 1 tablet by mouth once daily. Preferably in the morning, with a full glass of water. 04/12/24 Kimber Last MD Study STOP-HS1 [id number] povorcitinib 45mg or 75mg tablet Take 1 tablet by mouth once daily. Preferably in the morning, with a full glass of water. 05/27/24 Marlon Christiansen MD Study STOP-HS1 [id number] povorcitinib 45mg or 75mg tablet Take 1 tablet by mouth once daily. Preferably in the morning, with a full glass of water. 07/08/24 Marlon Christiansen MD Study STOP-HS1 [id number] povorcitinib 45mg or 75mg tablet Take 1 tablet by mouth once daily. Preferably in the morning, with a full glass of water. 08/20/24 Marlon Christiansen MD Study STOP-HS1 [id number] povorcitinib 45mg or 75mg tablet Take 1 tablet by mouth once daily. Preferably in the morning, with a full glass of water. 09/30/24 Marlon Christiansen MD Study STOP-HS1 [id number] povorcitinib 45mg, 75mg or placebo tablet Take 1 tablet by mouth once daily. Preferably in the morning, with a full glass of water. 12/11/23 Kimber Last MD Study STOP-HS1 [id number] povorcitinib 45mg, 75mg or placebo tablet Take 1 tablet by mouth once daily. Preferably in the morning, with a full glass of water. 12/29/23 Kimber Last MD Study STOP-HS1 [id number] povorcitinib 45mg, 75mg or placebo tablet Take 1 tablet by mouth once daily. Preferably in the morning, with a full glass of water. 01/16/24 Kimber Last MD Study STOP-HS1 [id number] povorcitinib 45mg, 75mg or placebo tablet Take [...] small molecule JAK1 inhibitor) who presents to [facility] ED with fatigue, weakness, and worsening of L gluteal wound. Patient was recently admitted to [facility] 09/13-09/17 for the same [...] 30 minutes after. 09/20/24 10/20/24 Ronna Carpenter APRN-SLOT MACHINE KEY PERSON nicotine polacrilex (Nicorette) 2 mg gum Chew [...] 09/18/24 10/18/24 Lia Prado MD Study STOP-HS1 [id number] povorcitinib 45mg or 75mg tablet Take 1 tablet by mouth once daily. Preferably in the morning, with a full glass of water. 02/29/24 Kimber Last MD Study STOP-HS1 [id number] povorcitinib 45mg or 75mg tablet Take 1 tablet by mouth once daily. Preferably in the morning, with a full glass of water. 04/04/24 Kimber Last MD Study STOP-HS1 [id number] povorcitinib 45mg or 75mg tablet Take 1 tablet by mouth once daily. Preferably in the morning, with a full glass of water. 04/12/24 Kimber Last MD Study STOP-HS1 [id number] povorcitinib 45mg or 75mg tablet Take 1 tablet by mouth once daily. Preferably in the morning, with a full glass of water. 05/27/24 Marlon Christiansen MD Study STOP-HS1 [id number] povorcitinib 45mg or 75mg tablet Take 1 tablet by mouth once daily. Preferably in the morning, with a full glass of water. 07/08/24 Marlon Christiansen MD Study STOP-HS1 [id number] povorcitinib 45mg or 75mg tablet Take 1 tablet by mouth once daily. Preferably in the morning, with a full glass of water. 08/20/24 Marlon Christiansen MD Study STOP-HS1 [id number] povorcitinib 45mg or 75mg tablet Take 1 tablet by mouth once daily. Preferably in the morning, with a full glass of water. 09/30/24 Marlon Christiansen MD Study STOP-HS1 [id number] povorcitinib 45mg, 75mg or placebo tablet Take 1 tablet by mouth once daily. Preferably in the morning, with a full glass of water. 12/11/23 Kimber Last MD Study STOP-HS1 [id number] povorcitinib 45mg, 75mg or placebo tablet Take 1 tablet by mouth once daily. Preferably in the morning, with a full glass of water. 12/29/23 Kimber Last MD Study STOP-HS1 [id number] povorcitinib 45mg, 75mg or placebo tablet Take 1 tablet by mouth once daily. Preferably in the morning, with a full glass of water. 01/16/24 Kimber Last MD Study STOP-HS1 [id number] povorcitinib 45mg, 75mg or placebo tablet Take [...] 10/10/2024 Interpreted By: Beronica Valentin and [facility] STUDY: CT of pelvis with out contrast INDICATION: Signs/Symptoms:Left gluteal abscess COMPARISON: None. ACCESSION NUMBER(S): [id number] ORDERING CLINICIAN: MACK GRADY TECHNIQUE: Axial CT [...] as stated. This study was interpreted at [place], [place] Signed by: Beronica Valentin 10/10/2024 11:03 PM Dictation workstation: [id number] XR chest 1 view Result Date: 10/10/2024 Interpreted By: Perry Baires, STUDY: XR CHEST 1 VIEW INDICATION: Signs/Symptoms:cough. COMPARISON: September 13, 2024 ACCESSION NUMBER(S): [id number] ORDERING CLINICIAN: KISHORE GUTIERREZ FINDINGS: Previous band [...] Perry Baires 10/10/2024 5:20 PM Dictation workstation: [id number] Assessment and Plan: Kevan La is a [...] in the note. documented in this encounter [facility] Work Phone: 10-10-2024 Emergency department Note Images [...] has noted significant pain of the left [place] where his previous hidradenitis suppurativa was. He [...] Perry Baires 10/10/2024 5:20 PM Dictation workstation: [id number] MDM: Patient is a 49-year-old male with [...] condition. Mack Grady MD Emergency Medicine PGY-3 [facility] Comment: Please note this report has been produced using speech recognition software and may contain errors related to that system including errors in grammar, punctuation, and spelling as well as words and phrases that may be inappropriate. If there are any questions or concerns please feel free to contact the dictating provider for clarification. Procedures ? [facility] last updated 10/10/2024 8:50 PM Mack Grady MD Resident 10/12/24 1527 -- This patient was seen by the resident physician. I have seen and examined the patient, agree with the workup, evaluation, management and diagnosis. The care plan has been discussed and I concur. My assessment reveals the following: HPI: Patient is a 49 y/o male with hidradenitis suppurativa, most treatment in [facility] where he used to live, has lived in [facility] for past 2 years, presenting with persistent [...] Color, Urine Light-Yellow Appearance, Urine Clear Specific Scott, Urine 1.037 (*) pH, Urine 7.0 Protein, [...] Abnormality Status --------- ------ Urinalysis with Reflex C...[[id number]] Abnormal Final result Extra Urine Rhodes Tube[[id number]] Final result Please view results for these [...] as stated. This study was interpreted at [facility], [place], [place] Signed by: Beronica Valentin 10/10/2024 11:03 PM Dictation workstation: [id number] XR chest 1 view Final Result Previous band of right basilar airspace disease has nearly completely resolved with only a tiny amount of residual. No new consolidation or edema. Signed by: Perry Baires 10/10/2024 5:20 PM Dictation workstation: [id number] Consult to Interventional Radiology (Results Pending) Medical [...] be infected again. documented in this encounter [facility] Work Phone: 09-30-2024 History of Present illness Narrative Patient seen for Week 42 of STOP HS-301 trial by Marlon Christiansen MD Noted that patient was admitted to the hospital since previous visit. Con meds and additional details of the serious adverse event placed in physical notes. Please see physical copy of notes located in subject binder for additional information. documented in this encounter [facility] Work Phone: 09-24-2024 History of Present illness [...] of the labs documented in this encounter [facility] Work Phone: 09-17-2024 Nurse Note Discharge Note: VN went over AVS with Pt. Pt agreed and understood instructions. Pt is aware of follow up appts and blood work. Floor nurse removed IV and intact. Pt has all belongings at the bedside. Pt is awaiting Meds to Beds medication before discharge. [facility] 09-17-2024 Nurse Note Discharge Note: VN went [...] dressing is given. Pt was transferred from [facility] in [place] for this admission. Pt stated his car is at [facility] and he has no means to get there. Pt does not have insurance to set up transport. Pt doesn't have any means of transportation to get to his car at [facility], so the floor is providing LYFT pickup. Pt meds to beds is delivered. Pt is waiting for transport to leave the floor. documented in this encounter [facility] Work Phone: 09-17-2024 Nurse Note Pt is ready for discharge. Discharge paper is given, discharge instruction is given. All questions are answered at this time. Pt PIV is removed, wound dressing changed and education on how to clean and change wound dressing is given. Pt was transferred from [facility] in [place] for this admission. Pt stated his car is at [facility] and he has no means to get there. Pt does not have insurance to set up transport. Pt doesn't have any means of transportation to get to his car at [facility], so the floor is providing LYFT pickup. Pt meds to beds is delivered. Pt is waiting for transport to leave the floor. [facility] 09-17-2024 History of Present illness Narrative WOOD MOLDER met with patient at bedside to address questions. Patient expressed interest on if he would be approved for disability. WOOD MOLDER encouraged patient to call or go online to initiate the application process. Patient had disability resources at bedside. WOOD MOLDER notified patient that the resources explains how and where to submit application and explains what we be needed and what to expect throughout the process. Patient verbalized understanding and thanked SW. PT recommends no needs. WOOD MOLDER will sign off. SOPHIA Ardon 09/17/24 1213 [...] were you homeless or living in a mcc (including now)? N Transportation Needs In the past 12 months, has lack of transportation kept you from medical appointments or from getting medications? no In the past 12 months, has lack of transportation kept you from meetings, work, or from getting things needed for daily living? No TCC ASSESSMENT: Met with pt and introduced myself as care management specialist and member of the Care Transitions [...] 06/2024 which resulted with termination of his [facility] medical insurance policy. Pt denies any falls. Pt stated he feels safe at home. Pt's address, phone number, and emergency contact information was verified. SW was consulted on 09/16 for financial concerns (assistance with disability, lack of insurance). Home care: none. DME: Pt stated the previous home box truck owner operator was convalescent so bathroom is equipped with grab bars on the shower and wall. it risk and assurance senior manager: none. PCP: Pt does not have a PCP and hasn't been seen by one in about 3-4 years. Transport to [facility]: Pt drives himself. Pharmacy: [facility]. Pt stated she only prescriptions he takes at home are STOP-HS 301 which is part of clinical free trial from Dermatology. Discharge Planning: Pt presenting from [facility] for new wound infection 2/2 hidradenitis suppurativa. Per medical team plan for discharge home today on oral Augmentin and PCP/Dermatology follow up appointments. Per HRS they accepted pt for [place] Medicaid and will fax auth letter to [facility] for release of his prescriptions. Pt stated he will perform his own wound to L buttock with instructions from nursing. Nursing updated and asked to perform wound care teaching + send pt home with wound care supplies as he will not be able to receive home health care until [place] Medicaid finalized. Pt voiced no additional questions or concerns regarding discharge planning. relations coordinator will continue to follow for discharge planning needs. Lorenza Morales RN Transitional Card Fixer (TCC) [phone] or [id number] Kevan La is a 49 y.o. male [...] inhibitor) presenting with new wound infection from [facility] ED.Being treated currently with Vancomycin, Zosyn, [...] Therapy Evaluation Patient Name: Kevan La Department: [place] [address] Room: [facility]5070-A Today's Date: 09/16/2024 Time Calculation Start Time: [...] Prior Function Per Pt/Caregiver Report Level of [place]: Independent with ADLs and functional transfers ADL [...] Antalgic Comments/Distance (ft) 1: 100ft Outcome Measures: [facility] Basic Mobility Turning from your back [...] Verbalizes Understanding Education Comments No comments found. [facility] reports patient is not insured and expressed interest in disability. [facility] was notified and [facility] confirmed patient is on their list to see today. WOOD MOLDER attempted to provide patient with disability resources [...] INDICATION: Signs/Symptoms:New fever. COMPARISON: None. ACCESSION NUMBER(S): [id number] ORDERING CLINICIAN: BALDOMERO SALDANAES FINDINGS: 2 AP [...] Miah Alves 09/14/2024 8:38 AM Dictation workstation: [id number] Physical Exam Constitutional: Appearance: Normal appearance. HENT: [...] inhibitor) presenting with new wound infection from [facility] ED.Being treated currently with Vancomycin, Zosyn, [...] INDICATION: Signs/Symptoms:New fever. COMPARISON: None. ACCESSION NUMBER(S): [id number] ORDERING CLINICIAN: BALDOMERO POWELL FINDINGS: 2 AP [...] Miah Alves 09/14/2024 8:38 AM Dictation workstation: [id number] Physical Exam PHYSICAL EXAM: General: awake, alert, [...] INDICATION: Signs/Symptoms:New fever. COMPARISON: None. ACCESSION NUMBER(S): [id number] ORDERING CLINICIAN: BALDOMERO POWELL FINDINGS: 2 AP [...] Miah Alves 09/14/2024 8:38 AM Dictation workstation: [id number] Assessment/Plan Kevan La is a 49 y.o. male presenting with PMH of severe hidradenitis supprativa (on STOP HS-301 trial (povorcitinib), small molecule JAK1 inhibitor) presenting with new wound infection from [facility] ED. 09/15/24 Update - updated pain [...] INDICATION: Signs/Symptoms:New fever. COMPARISON: None. ACCESSION NUMBER(S): [id number] ORDERING CLINICIAN: BALDOMERO POWELL FINDINGS: 2 AP [...] Miah Alves 09/14/2024 8:38 AM Dictation workstation: [id number] Physical Exam PHYSICAL EXAM: General: awake, alert, [...] Yellow, Dark-Yellow Appearance, Urine Clear Clear Specific Scott, Urine 1.014 1.005 - 1.035 pH, Urine [...] 1 view Result Date: 09/14/2024 Interpreted By: Miha Alves, STUDY: XR CHEST 1 VIEW; 09/13/2024 10:22 pm INDICATION: Signs/Symptoms:New fever. COMPARISON: None. ACCESSION NUMBER(S): [id number] ORDERING CLINICIAN: BALDOMERO POWELL FINDINGS: 2 AP [...] Miah Alves 09/14/2024 8:38 AM Dictation workstation: [id number] CT abdomen pelvis w IV contrast Result Date: 09/12/2024 [facility] 1975 [id number] Exam Date/Time: 09/12/2024 21:13 Procedure: CT ABDOMEN [...] 09/12/2024 Patient Name: [facility]AN LA [facility] 1975 [id number] Exam Date/Time: 09/12/2024 20:17 Procedure: XR CHEST [...] inhibitor) presenting with new wound infection from [facility] ED. #hidradenitis supprativa ::purulent drainage ::Leukocytosis [...] Karissa Venegas, PharmD documented in this encounter [facility] Work Phone: 09-17-2024 Hospital Discharge instructions Lia [...] Your Care team documented in this encounter [facility] Work Phone: 09-16-2024 Miscellaneous Notes Problem: Pain [...] inhibitor) presenting with new wound infection from [facility]. He has a long-standing history of [...] last Monday, morning, and the day after [place]. 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 He used to live in [facility]. Denies any sick contacts. He also reports worsening left leg weakness since May (he used to walk with a limp, now has to shuffle). He has both a dry cough that sometimes culminates in post-tussive emesis. On 09/12, he came in with a draining left thigh wound, dry cough and shortness of breath to the [facility] ED. He had some post-tussive emesis. He came in with a fever to 100.4 , tachycardia to 102. He was started on Vanc/Zosyn, got 2 L of NS, and got toradol and morphine for pain. No real culture data history for infections except for rare gram positive cocci in 2015. On 09/13, on arrival at [facility], denies any pain, but [...] falls during shift documented in this encounter [facility] Work Phone: 09-16-2024 Plan of care note [...] complained of pain and was medicated per [facility] order and before left buttock dressing change. Patient tolerated dressing change with no issues. IV antibiotics administered. PT evaluated pt. Patient to be discharged 09/17/24. VSS, call light within reach, safety maintained. Zuleyma Sanchez RN [facility] 09-16-2024 Consult note Associated Order (s): IP [...] Estimated Needs: Total Energy Estimated Needs (kCal): (3142-7099 kcal) Method for Estimating Needs: MSJ 2017 [...] Wound healing Time Spent (min): 40 minutes [facility] 09-16-2024 Consult note Associated Order (s): IP [...] Estimated Needs: Total Energy Estimated Needs (kCal): (6812-1885 kcal) Method for Estimating Needs: MSJ 2017 [...] left buttock wound with AMD packing strip (STILL OPERATOR WHISKEY #[id number] or [id number]) Cover the surrounding abscess wounds with 2 sheets of Aquacel Ag (STILL OPERATOR WHISKEY#[id number]) Cover the wounds with multiple ABD pads Xiomara Palmer RN CW 09/14/2024 1:14 PM Associated Order(s): IP CONSULT TO ACUTE CARE SURGERY [facility] ACUTE CARE SURGERY - CONSULT Patient [...] any questions Seen with Dr. Dequan Petty [facility] [id number] CHIEF COMPLAINT/REASON FOR CONSULT: Patient has an [...] for evaluation and then was transferred to [facility] for more definitive management. [...] End Date Taking? Authorizing Provider Study STOP-HS1 [id number] povorcitinib 45mg or 75mg tablet Take 1 tablet by mouth once daily. Preferably in the morning, with a full glass of water. 02/29/24 Kimber Last MD Study STOP-HS1 [id number] povorcitinib 45mg or 75mg tablet Take 1 tablet by mouth once daily. Preferably in the morning, with a full glass of water. 04/04/24 Kimber Last MD Study STOP-HS1 [id number] povorcitinib 45mg or 75mg tablet Take 1 tablet by mouth once daily. Preferably in the morning, with a full glass of water. 04/12/24 Kimber Last MD Study STOP-HS1 [id number] povorcitinib 45mg or 75mg tablet Take 1 tablet by mouth once daily. Preferably in the morning, with a full glass of water. 05/27/24 Marlon Christiansen MD Study STOP-HS1 [id number] povorcitinib 45mg or 75mg tablet Take 1 tablet by mouth once daily. Preferably in the morning, with a full glass of water. 07/08/24 Marlon Christiansen MD Study STOP-HS1 [id number] povorcitinib 45mg or 75mg tablet Take 1 tablet by mouth once daily. Preferably in the morning, with a full glass of water. 08/20/24 Marlon Christiansen MD Study STOP-HS1 [id number] povorcitinib 45mg, 75mg or placebo tablet Take 1 tablet by mouth once daily. Preferably in the morning, with a full glass of water. 12/11/23 Kimber Last MD Study STOP-HS1 [id number] povorcitinib 45mg, 75mg or placebo tablet Take 1 tablet by mouth once daily. Preferably in the morning, with a full glass of water. 12/29/23 Kimber Last MD Study STOP-HS1 [id number] povorcitinib 45mg, 75mg or placebo tablet Take 1 tablet by mouth once daily. Preferably in the morning, with a full glass of water. 01/16/24 Kimber Last MD Study STOP-HS1 [id number] povorcitinib 45mg, 75mg or placebo tablet Take [...] and apremilast. He was being treated by [facility]. Pt reports that he has been on multiple therapies and was not able to list all the medications he has previously tried. He did recognize the names of the above medications. Profiler Operator is unable to access paper charts [...] at the time when talking to the loan underwriter. Notes increased fatigue. Denies any fevers, night [...] dry cough, and shortness of breath to [facility] ED - Vitals: T 100.4, HR [...] toradol/morphine for pain - 09/13 transferred [facility] - Labs: WBC 13.4, Hgb 7.8, [...] Yellow, Dark-Yellow Appearance, Urine Clear Clear Specific Scott, Urine 1.014 1.005 - 1.035 pH, Urine [...] and one with Ronna Carpenter at our [place] location. We will arrange outpatient follow-up The patient was seen and discussed with attending physician Dr. Adhikari. The assessment and plan was communicated to the care team. Thank you for the consultation and for the opportunity to contribute to the care of this patient. Danna Alves MD PGY2, Dermatology Epic chat (preferred) Team pager [phone] Jennifer Pena, Randi beal, P.Y., Hu Eubanks, [...] Trudi Luna PharmD documented in this encounter [facility] Work Phone: 09-15-2024 Plan of care note [...] within reach, safety maintained. Zuleyma Sanchez RN [facility] Work Phone: 09-15-2024 Hospital Note Formatting of t his note might be different from the original. Kevan La is a 49 y.o. male presenting with PMH of severe hidradenitis supprativa (disease on left buttock and gluteal fold) on STOP HS-301 trial (povorcitinib, small molecule JAK1 inhibitor) presenting with new wound infection from [facility] ED. 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 He used to live in [facility]. Denies any sick contacts. He also reports worsening left leg weakness since May (he used to walk with a limp, now has to shuffle). He has both a dry cough that sometimes culminates in post-tussive emesis. On 09/12, he came in with a draining left thigh wound, dry cough and shortness of breath to the [facility] ED. He had some post-tussive emesis. He came in with a fever to 100.4 , tachycardia to 102. He was started on Vanc/Zosyn, got 2 L of NS, and got toradol and morphine for pain. No real culture data history for infections except for rare gram positive cocci in 2016. On 09/13, on arrival at [facility], denies any pain, but [...] as pt expressed interest in quitting smoking. [facility] Work Phone: 09-14-2024 Plan of care note The patient's goals for the shift include The clinical goals for the shift include patien twill remaini safe and free rom falls during shift [facility] 09-14-2024 Consult note Associated Order (s): [...] left buttock wound with AMD packing strip (STILL OPERATOR WHISKEY #[id number] or [id number]) Cover the surrounding abscess wounds with 2 sheets of Aquacel Ag (STILL OPERATOR WHISKEY#[id number]) Cover the wounds with multiple ABD pads Xiomara Palmer RN [facility] 09/14/2024 1:14 PM [facility] 09-14-2024 Consult note Associated Order (s): IP CONSULT TO ACUTE CARE SURGERY [facility] ACUTE CARE SURGERY - CONSULT Patient [...] any questions Seen with Dr. Dequan Petty [facility] [id number] CHIEF COMPLAINT/REASON FOR CONSULT: Patient has an [...] for evaluation and then was transferred to [facility] for more definitive management. [...] End Date Taking? Authorizing Provider Study STOP-HS1 [id number] povorcitinib 45mg or 75mg tablet Take 1 tablet by mouth once daily. Preferably in the morning, with a full glass of water. 02/29/24 Kimber Last MD Study STOP-HS1 [id number] povorcitinib 45mg or 75mg tablet Take 1 tablet by mouth once daily. Preferably in the morning, with a full glass of water. 04/04/24 Kimber Last MD Study STOP-HS1 [id number] povorcitinib 45mg or 75mg tablet Take 1 tablet by mouth once daily. Preferably in the morning, with a full glass of water. 04/12/24 Kimber Last MD Study STOP-HS1 [id number] povorcitinib 45mg or 75mg tablet Take 1 tablet by mouth once daily. Preferably in the morning, with a full glass of water. 05/27/24 Marlon Christiansen MD Study STOP-HS1 [id number] povorcitinib 45mg or 75mg tablet Take 1 tablet by mouth once daily. Preferably in the morning, with a full glass of water. 07/08/24 Marlon Christiansen MD Study STOP-HS1 [id number] povorcitinib 45mg or 75mg tablet Take 1 tablet by mouth once daily. Preferably in the morning, with a full glass of water. 08/20/24 Marlon Christiansen MD Study STOP-HS1 [id number] povorcitinib 45mg, 75mg or placebo tablet Take 1 tablet by mouth once daily. Preferably in the morning, with a full glass of water. 12/11/23 Kimber Last MD Study STOP-HS1 [id number] povorcitinib 45mg, 75mg or placebo tablet Take 1 tablet by mouth once daily. Preferably in the morning, with a full glass of water. 12/29/23 Kimber Last MD Study STOP-HS1 [id number] povorcitinib 45mg, 75mg or placebo tablet Take 1 tablet by mouth once daily. Preferably in the morning, with a full glass of water. 01/16/24 Kimber Last MD Study STOP-HS1 [id number] povorcitinib 45mg, 75mg or placebo tablet Take [...] Prasanth Baires MD Attending Acute Care Surgery [facility] Work Phone: 09-14-2024 Consult note Associated Order [...] and apremilast. He was being treated by [facility]. Pt reports that he has been on multiple therapies and was not able to list all the medications he has previously tried. He did recognize the names of the above medications. Profiler Operator is unable to access paper charts [...] at the time when talking to the loan underwriter. Notes increased fatigue. Denies any fevers, night [...] dry cough, and shortness of breath to [facility] ED - Vitals: T 100.4, HR [...] toradol/morphine for pain - 09/13 transferred to [facility] - Labs: WBC 13.4, Hgb 7.8, [...] Yellow, Dark-Yellow Appearance, Urine Clear Clear Specific Scott, Urine 1.014 1.005 - 1.035 pH, Urine [...] and one with Ronna Carpenter at our [place] location. We will arrange outpatient follow-up The patient was seen and discussed with attending physician Dr. Adhikari. The assessment and plan was communicated to the care team. Thank you for the consultation and for the opportunity to contribute to the care of this patient. Danna Alves MD PGY2, Dermatology Epic chat (preferred) Team pager [phone] Jennifer Pena, Randi beal, P.Y., Mert Eubanks., [...] decision making as documented in the note. [facility] Work Phone: 09-14-2024 Consult note Associated Order (s): PHARMACY TO DOSE VANCO Vancomycin Dosing by Pharmacy- INITIAL Kevan aL is a 49 y.o. year old male [...] and signs/symptoms of toxicity. Trudi Luna PharmD [facility] Work Phone: 09-13-2024 Emergency department Note Pt leaving [facility] ED at this time to go to . Belongings with EMS. [facility] 09-13-2024 Emergency department Note Pt leaving [facility] ED at this time to go to . Belongings with EMS. Report called to RN. RN informed vancomycin was stopped for transport. [facility] ETA 8pm transfer line called - pt will go to [facility]- 5016 bed A. Number for report [phone] [facility] Research Nurse called back. Per the Research Physician, the patient does not have to be transferred to [facility]. All that needs to be done is a Biologic Medication needs prescribed, and the patient can be admitted here. The patient is in an outpatient study. If any further questions, we can contact AMAN Hancock @ [phone]. Patient is in a study at hospital. He has provided a card for his physician and nurse in the study. I contacted the nurse Karissa and left a message @ [phone]. Patient is on the waiting list for and as of 0800 today there are still no rooms available at for this patient. Karissa called back and will contact her MD's over her and will get back with me. [facility] ED EMERGENCY DEPARTMENT ENCOUNTER Pt Name: [...] Procedure Abnormality Status --------- ------ Culture, Aerobic Bacteri...[[id number]] In process Anaerobic culture[[id number]] In process Please view results for these [...] with a treatment for HS (Study STOP-HS1 [id number] povorcitinib 45mg or 75mg tablet) [RADHA] 2206 I discussed with general surgery Dr. Marcus who agreed with antibiotics and admission and will likely need surgery at some point. Recommended admitting where the patient is currently on trial. [RADHA] 9 About 5 minutes ago I discussed over the phone with Dr. Quintero from [facility] who accepted the admission. [RADHA] ED [...] JUAN Emergency Medicine Physician Acute [facility] Xiomara Kauffman MD 09/12/24 [id number] documented in this encounter [facility] 09-13-2024 Emergency department Note Report called to RN. RN informed vancomycin was stopped for transport. [facility] 09-13-2024 History and physical note Images from the original note were not included. History Of Present Illness Kevan La is a 49 y.o. male presenting with PMH of severe hidradenitis supprativa (disease on left buttock and gluteal fold) on STOP HS-301 trial (povorcitinib, small molecule JAK1 inhibitor) presenting with new wound infection from [facility] ED. He has a long-standing history [...] last Monday, morning, and the day after [place]. 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 He used to live in [facility]. Denies any sick contacts. He also reports worsening left leg weakness since May (he used to walk with a limp, now has to shuffle). He has both a dry cough that sometimes culminates in post-tussive emesis. On 09/12, he came in with a draining left thigh wound, dry cough and shortness of breath to the [facility] ED. He had some post-tussive emesis. [...] Seminars and Arthritis and Rheumatism). Here at [facility], denies any pain, but has an intermittent dry cough. His wound is draining large amounts of yellow/lieberman fluid. Home Meds Iron pill Vitamin D Cetirizine 10 mg daily Advil for pain Multivitamin Admission labs at 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 #New wound infection with purulent [...] Q6H -Fungitell, galactomannan, histoplasma, cryptococcal antigen -Consult [facility] trial team in AM for any [...] decision making as documented in the note. [facility] Work Phone: 09-13-2024 History and physical note Images from the original note were not included. History Of Present Illness Kevan La is a 49 y.o. male presenting with PMH of severe hidradenitis supprativa (disease on left buttock and gluteal fold) on STOP HS-301 trial (povorcitinib, small molecule JAK1 inhibitor) presenting with new wound infection from [facility] ED. 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 He used to live in [facility]. Denies any sick contacts. He also reports worsening left leg weakness since May (he used to walk with a limp, now has to shuffle). He has both a dry cough that sometimes culminates in post-tussive emesis. On 09/12, he came in with a draining left thigh wound, dry cough and shortness of breath to the [facility] ED. He had some post-tussive emesis. [...] Seminars and Arthritis and Rheumatism). Here at [facility], denies any pain, but has an intermittent dry cough. His wound is draining large amounts of yellow/lieberman fluid. Home Meds Iron pill Vitamin D Cetirizine 10 mg daily Advil for pain Multivitamin Admission labs at 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 #New wound infection with purulent [...] in the note. documented in this encounter [facility] Work Phone: 09-13-2024 Emergency department Note [facility] ETA 8pm [facility] 09-13-2024 Emergency department Note transfer line called - pt will go [facility]- 5016 bed A. Number for report [phone] [facility] 09-13-2024 Consult note Formatting of [...] creatinine, and vancomycin levels interfaced automatically to [employer] and data has been analyzed and interpreted. [...] RPh Clinical Pharmacist Available via Secure Chat [facility] 09-13-2024 Consult note Formatting of th is [...] creatinine, and vancomycin levels interfaced automatically to [employer] and data has been analyzed and interpreted. [...] DATE: 09/13/24 TIME: 11:05 AM Melva Mcdonald [facility] Clinical Pharmacist Available via Secure Chat documented in this encounter [facility] 09-13-2024 Emergency department Note [facility] Research Nurse called back. Per the Research Physician, the patient does not have to be transferred to [facility]. All that needs to be done is a Biologic Medication needs prescribed, and the patient can be admitted here. The patient is in an outpatient study. If any further questions, we can contact AMAN Hancock @ [phone]. [facility] 09-13-2024 Emergency department Note Patient is in a study at [facility]. He has provided a card for his physician and nurse in the study. I contacted the nurse Karissa and left a message @ [phone]. Patient is on the waiting list for and as of 0800 today there are still no rooms available at for this patient. Karissa called back and will contact her MD's over her and will get back with me. [facility] 09-12-2024 Physician Emergency department Note [facility] ED EMERGENCY DEPARTMENT ENCOUNTER Pt Name: [...] Procedure Abnormality Status --------- ------ Culture, Aerobic Bacteri...[[id number]] In process Anaerobic culture[[id number]] In process Please view results for these [...] clinical trial is. As below, accepted by [facility]. I discussed test results and plan [...] with a treatment for HS (Study STOP-HS1 [id number] povorcitinib 45mg or 75mg tablet) [RADHA] 2206 I discussed with general surgery Dr. Marcus who agreed with antibiotics and admission and will likely need surgery at some point. Recommended admitting where the patient is currently on trial. [RADHA] 2308 About 5 minutes ago I discussed over the phone with Dr. Quintero from [facility] who accepted the admission. [RADHA] ED [...] Xiomara Kauffman MD JUAN Emergency Medicine Physician [facility] Xiomara Kauffman MD 09/12/24 0346 [facility] 08-20-2024 History of Present illness Narrative Patient seen for Week 36 of STOP HS-301 trial by Marlon Christiansen MD No serious adverse events or major changes in concomitant medications noted. Please see physical copy of notes located in subject binder for additional information. documented in this encounter [facility] Work Phone: 04-04-2024 History of Present illness Narrative Patient seen for Unscheduled Visit of STOP HS-301 trial by Kimber Last MD No serious adverse events or major changes in concomitant medications noted. Please see physical copy of notes located in subject binder for additional information. documented in this encounter [facility] Work Phone: Evaluation note Diagnosis Hidradenitis suppurativa- Primary [facility]idradenitis [facility] Clinical trial participant- Primary Clinical trial participant documented in this encounter [facility] Work Phone: Evaluation note* Diagnosis Clinical trial participant documented in this encounter [facility] Work Phone: Evaluation note* Diagnosis Clinical trial participant documented in this encounter [facility] Work Phone: Evaluation note* Diagnosis Clinical trial participant- Primary documented in this encounter [facility] Work Phone: Evaluation note* Diagnosis Clinical trial participant- Primary documented in this encounter [facility] Work Phone: Evaluation note* Diagnosis Clinical trial participant- Primary documented in this encounter [facility] Work Phone: Evaluation note* Diagnosis Clinical trial participant- Primary documented in this encounter [facility] Work Phone: [phone] note* Diagnosis Clinical trial participant- Primary documented in this encounter [facility] Work Phone: [phone] note* Diagnosis Clinical trial participant documented in this encounter [facility] Work Phone: [phone] note* Diagnosis Clinical trial participant- Primary documented in this encounter [facility] Work Phone: [phone] note* Diagnosis Clinical trial participant- Primary documented in this encounter [facility] Work Phone: Evaluation note* Diagnosis Buttock wound, left, initial encounter- Primary Sepsis, due to unspecified organism, unspecified whether acute organ dysfunction present (HCC) Hidradenitis suppurativa Hidradenitis [facility] Wound infection- Primary Posttraumatic wound infection not elsewhere classified Wound infection Posttraumatic wound infection not elsewhere classified Nausea Nausea alone Constipation, unspecified constipation type Viral infection Smoking Tobacco use disorder Hidradenitis suppurativa Hidradenitis documented in this encounter [facility] Work Phone: [phone] note* Diagnosis Wound infection- Primary Posttraumatic wound infection not elsewhere classified Wound infection Posttraumatic wound infection not elsewhere classified Nausea Nausea alone Constipation, unspecified constipation type Viral infection Smoking Tobacco use disorder Hidradenitis suppurativa Hidradenitis documented in this encounter [facility] Work Phone: [phone] note* Diagnosis Counseling on health promotion and disease prevention- Primary Other specified counseling Hidradenitis suppurativa Hidradenitis documented in this encounter [facility] Work Phone: [phone] note* Diagnosis Clinical trial participant- Primary documented in this encounter [facility] Work Phone: Evaluation note* Diagnosis Gluteal [...] due to Staphylococcus documented in this encounter [facility] Work Phone: Evaluation note* Diagnosis Abscess- Primary Cellulitis and abscess of unspecified site Abscess Cellulitis and abscess of unspecified site documented in this encounter [facility] note* Diagnosis Gluteal abscess- Primary Cellulitis [...] alone Opioid-induced constipation documented in this encounter [facility] Work Phone: Evaluation note* Diagnosis Gluteal [...] left hip Hypercalcemia documented in this encounter [facility] Work Phone: Evaluation note* Diagnosis Abscess of left hip- Primary Abscess of left hip [facility] Diagnosis Gluteal abscess- Primary Cellulitis and [...] Rhinitis, unspecified type documented in this encounter [facility] Work Phone: Evaluation note* Diagnosis Gluteal [...] of malignancy Hypercalcemia documented in this encounter [facility] Work Phone: Evaluation note* Diagnosis Sepsis, due to unspecified organism, unspecified whether acute organ dysfunction present (HCC)- Primary Sepsis, due to unspecified organism, unspecified whether acute organ dysfunction present (HCC) Abscess of left hip [facility]* Diagnosis Gluteal [...] limb, including hip documented in this encounter [facility] Work Phone: Evaluation note* Diagnosis Gluteal [...] limb, including hip documented in this encounter [facility] Work Phone: Evaluation note* Diagnosis Gluteal [...] limb, including hip documented in this encounter [facility] Work Phone: Evaluation note* Diagnosis Gluteal [...] limb, including hip documented in this encounter [facility] Work Phone: Evaluation note* Diagnosis Gluteal [...] limb, including hip documented in this encounter [facility] Work Phone: Evaluation note* Diagnosis Gluteal [...] limb, including hip documented in this encounter [facility] Work Phone: Evaluation note* Diagnosis Gluteal [...] change of dressing documented in this encounter [facility] Work Phone: Evaluation note* Diagnosis Gluteal [...] pain medication therapy documented in this encounter [facility] Work Phone: Evaluation note* Diagnosis Gluteal [...] left thigh- Primary documented in this encounter [facility] Work Phone: Evaluation note* Diagnosis Gluteal [...] subsequent encounter- Primary documented in this encounter [facility] Work Phone: Evaluation note* Diagnosis Gluteal [...] Wound of thigh documented in this encounter [facility] Work Phone: Renxwc for referral (narrative)No reason for referral information [facility]: Reason for visit Narrative* Auth/Cert Specialty Diagnoses / Procedures Referred By Contac t Referred To Contact Diagnoses Sepsis Procedures No [place] [address] [place] [address] Phone: tel: fax: [facility] [address] [facility] [place] [address] Referral ID Status Reason Start Date Expiration Date Visits Re quested Visits Authorized [id number] 1 1 [facility] Work Phone: Reawdo for visit Narrative* Auth/Cert (Routine) Specialty Diagnoses / Procedures Referred By Contac t Referred To Contact Diagnoses Gluteal abscess Gluteal mass vs abscess [place] [address] [place] [address] Phone: tel: fax: [facility] [address] [place] [address] Phone: tel: Referral ID Status Reason Start Date Expiration Date Visits Re quested Visits Authorized [id number] 1 1 [facility] Work Phone: Rekzgm for visit Narrative* SCC Consult (Routine) - Authorized Specialty Diagnoses / Procedures Referred By Contac t Referred To Contact Hematology and Oncology Diagnoses Squamous cell [place] [address] [place] [address] Phone: tel: fax: [place] [address] [place] [address] Phone: tel: fax: Referral ID Status Reason Start Date Expiration Date Visits Requested Visits Authorized [id number] Authorized Specialty Services Required 11/19/2024 11/19/2025 1 1 [facility] Work Phone: Remrdk for visit Narrative* Auth/Cert Specialty Diagnoses / Procedures Referred By Contac t Referred To Contact Diagnoses [place] [address] [place] [address] Phone: tel: fax: [facility] [address] [facility] [place] [address] Referral ID Status Reason Start Date Expiration Date Visits Re quested Visits Authorized [id number] 1 1 [facility] Work Phone: reason for visit Narrative* SCC Consult (Routine) - Authorized Specialty Diagnoses / Procedures Referred By Contac t Referred To Contact Palliative Medicine / Hematology and Oncology Diagnoses Cancer associated pain Omaira Clayton, [employer] [address] [place] [address] Phone: tel: fax: Referral ID Status Reason Start Date Expiration Date Visits Requested Visits Authorized [id number] Authorized Specialty Services Required 11/25/2024 11/25/2025 1 1 [facility] Work Phone: Reason for Referral Specialty Diagnoses / Procedures Referred By Contac t Referred To Contact Diagnoses Clinical trial participant Procedures ECG 12 lead (Ancillary Performed) [place] [id number] [facility] Department [place] [address] Referral ID Status Reason Start Date Expiration Date V isits Requested Visits Authorized [id number] Authorized 02/29/2024 02/28/2025 1 1 Advance Directives [...] Reason for Visit Chief Complaint Admit Date [facility] October 24, 2024 5:00am Chief Complaint Admit Date [facility] October 24, 2024 5:00am [facility] December 04, 2024 5 :00am Chief Complaint Admit Date [facility] February 18, 2025 5:0 0am [facility] February 20, 2025 5:0 0am [facility] March 12, 2025 5: 00am [facility] March 18, 2025 9:0 0pm Additional Source Comments Reason for Visit (unrecogniz ed section and content) Reason Comments Wound Check Specialty Diagnoses / Procedures Referred By Adrian t Referred To Contact Diagnoses Abscess of left hip Procedures . Juvenal Mathur MD [address] [facility] [address] [place] [address] Phone: tel: fax: [facility] [address] [place] [phone] Phone: tel: Referral ID Status Reason Start Date Expiration Date Visits Re quested Visits Authorized [id number] 1 1 Specialty Diagnoses / Procedures Referred By Adrian t Referred To Contact Diagnoses Clinical trial participant Procedures ECG 12 lead (Ancillary Performed) [place]utz [place] PhD [id number] [facility] [place] [address] Referral ID Status Reason Start Date Expiration Date V isits Requested Visits Authorized [id number] Authorized 02/29/2024 02/28/2025 1 1 Reason Comments Dehydration Fatigue Patient arrived to E D c/o dehydration and fatigue for a few days. Also c/o cough. Specialty Diagnoses / Procedures Referred By Adrian t Referred To Contact Diagnoses . Procedures . [facility] [address] [place] [address] Phone: tel: [facility] ED [address] [place] [address] Phone: tel: Referral ID Status Reason Start Date Expiration Date Visits Re quested Visits Authorized [id number] 1 1 Reason Comments Wound Check Pt arrives from SNF for possible sepsis. Had wound on buttock drained at in Sep. Has not had IV antibiotics at facility. Hx of rare skin condition with frequent abscesses. Aox4. Some N/V. Hypotensive 80-90 systolic. Reason Comments Follow-up Reason Comments Wound Infection Pt arrives by [facility] in [facility] care pt has had wound infection since September, pt stood up out of bed last night and it started bleeding and having a foul odor last night. Specialty Diagnoses / Procedures Referred By Adrian t Referred To Contact Diagnoses Sepsis, due to unspecified organism, unspecified whether acute organ dysfunction present (HCC) Procedures . Clarita Hay, [address] [place] [address] Phone: tel: fax: [facility] [address] [place] [phone] Phone: tel: Referral ID Status Reason Start Date Expiration Date Visits Re quested Visits Authorized [id number] 1 1 Reason Comments OTV In house [...] sedation for opioid reversal - MUST notify litigation attorney provider immediately after first dose, may give [...] Carley Arevalo RN)0937 (New Bag - Provider: Roanld Adair RN)1009 (Stopped - Provider: Ronald Adair [...] First dose on Mon10/19/24 at 0800, Mini-Bag Plus/ADD-Racine bag, Suspected Indication (Select all that apply): [...] hours, First dose on Mon11/09/24 at 0500, ADD-Racine bag, Suspected Indication (Select all that apply): [...] pupils, RR < 8; notify primary team litigation attorney if used ondansetron (Zofran) injection 4 mg(Linked [...] Ambriz RN) 0906 (Given - Provider: Elsy iDaz RN)1601 (Given - Provider: Elsy Diaz RN)2100 [...] Provider: Elsy Diaz RN)2002 (Given - Provider: Ercika Mary RN) 918 (Given - Provider: Tammy [...] Provider: Fadia Goldsmith RN)0358 (Given - Provider: Nihtya Farnsworth RN)0929 (Given - Provider: Elsy Diaz, [...] Reason: Other - Comment: 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 - 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 pharmacy to retime)1056 (New Bag [...] sedation for opioid reversal - MUST notify litigation attorney provider immediately after first dose, may give [...] AMAN) 0135 (Given - Provider: Carmina Corona, AMNA)0830 (Given - Provider: Shanel [place]wood, AMAN)1730 (Due) [...] RN) 0846 (Given - Provider: Rosa Mcfadden, MAAN)1449 (Given - Provider: Rosa Mcfadden, AMAN)2252 (Given [...] line, Starting on 12/08/24 at 1023, Give KS if patient is unable to take orally [...] line, Starting on Mon12/08/24 at 1023, Give KS if patient is unable to take orally [...] in 0.9% sodium chloride 250 mL infusion (Vbs-Quqsbi-Ltzdi) (premix) (CANCELED) 2-50 mcg/min (7.5-187.5 mL/hr), IntraVENous, [...] sedation for opioid reversal - MUST notify litigation attorney provider immediately after first dose, may give [...] Care Teams (unrecognized sec tion and content) Manager Administration Relationship Specialty [place] [address] [place] [address] Consulting Physician Hematology and Oncology 11/29/24 Manager Administration Relationship Specialty [place] [address] [place], [place] [id number] Consulting Physician Hematology and Oncology 11/29/24 Manager Administration Relationship Specialty [place] [address] [place], [place] [id number] Consulting Physician Hematology and Oncology 11/29/24 Team [...] December 04, 2024 End: December 04, 2024 Manager Administration Relationship Specialty [place] [address] [place] [address] Consulting Physician Hematology and Oncology 11/29/24 Manager Administration Relationship Specialty [place] [address] [place] [address] Consulting Physician Hematology and Oncology 11/29/24 Manager Administration Relationship Specialty Start Date End Date Generic Provider, No [place] [address] PCP - General Breast Worker 01/03/25 [place] [address] [place] [address] Consulting Physician Hematology and Oncology 11/29/24 Manager Administration Relationship Specialty Start Date End Date Generic Provider, No [place] [address] PCP - General Breast Worker 01/03/25 [place] [address] [place] [address] Consulting Physician Hematology and Oncology 11/29/24 Manager Administration Relationship Specialty Start Date End Date Generic Provider, [place] [address] PCP - General Breast Worker 01/03/25 [place] [address] [place] [address] Consulting Physician Hematology and Oncology 11/29/24 Manager Administration Relationship Specialty Start Date End Date Generic Provider, [place] [address] PCP - General Breast Worker 01/03/25 [place] [address] [place] [address] Consulting Physician Hematology and Oncology 11/29/24 Manager Administration Relationship Specialty Start Date End Date Generic Provider, No [place] [address] PCP - General Breast Worker 01/03/25 [place] [address] [place] [address] Consulting Physician Hematology and Oncology 11/29/24 Manager Administration Relationship Specialty Start Date End Date Generic Provider, No [place] [address] PCP - General Breast Worker 01/03/25 [place] [address] [place] [address] Consulting Physician Hematology and Oncology 11/29/24 Manager Administration Relationship Specialty Start Date End Date Generic Provider, [place] [address] PCP - General Breast Worker 01/03/25 [place] [address] [place] [address] Consulting Physician Hematology and Oncology 11/29/24 Manager Administration Relationship Specialty Start Date End Date Generic Provider, No [place] [address] PCP - General Breast Worker 01/03/25 [place] [address] [place] [address] Consulting Physician Hematology and Oncology 11/29/24 Manager Administration Relationship Specialty Start Date End Date Generic Provider, No Assigned PcpMD NONE [facility] [place] [address] PCP - General Breast Worker 01/03/25 [place] [address] [place] [address] Consulting Physician Hematology and Oncology 11/29/24 [place] [address] [place] [address] Consulting Physician Hematology and Oncology 01/30/25 Manager Administration Relationship Specialty Start Date End Date Generic Provider, No [place] [address] PCP - General Breast Worker 01/03/25 [place] [address] [place] [address] Consulting Physician Hematology and Oncology 11/29/24 [place] [address] [place] [address] Consulting Physician Hematology and Oncology 01/30/25 Manager Administration Relationship Specialty Start Date End Date Generic Provider, No [place] [address] PCP - General Breast Worker 01/03/25 [place] [address] [place] [address] Consulting Physician Hematology and Oncology 11/29/24 [place] [address] [place] [address] Consulting Physician Hematology and Oncology 01/30/25 Manager Administration Relationship Specialty Start Date End Date Generic Provider, No [place] [address] PCP - General Breast Worker 01/03/25 [place] [address] [place] [address] Consulting Physician Hematology and Oncology 11/29/24 [place] [address] [place] [address] Consulting Physician Hematology and Oncology 01/30/25 Manager Administration Relationship Specialty Start Date End Date Generic Provider, No Assigned Pcp, [place] [address] PCP - General Breast Worker 01/03/25 [place] [address] [place] [address] Consulting Physician Hematology and Oncology 11/29/24 [place] [address] [place] [address] Consulting Physician Hematology and Oncology 01/30/25 Team [...] section and content) DATE CREATED AUTHOR 12/21/2024 [facility] DATE CREATED AUTHOR AUTHOR'S ORGANIZ ATION 12/31/2024 [facility] DATE CREATED AUTHOR AUTHOR'S ORGANIZ ATION 03/28/2025 [facility] DATE CREATED AUTHOR AUTHOR'S ORGANIZ ATION 04/18/2025 [facility] DATE CREATED AUTHOR AUTHOR'S ORGANIZ ATION 04/26/2025 [facility] Goals (unrecognized section and content) Goals may [...] BE BASED ON THE PRIMARY CLINICAL RECORDS. [employer] provides no warranty or guarantee of the accuracy or completeness of information in this document.
[2025-04-28 10:39] LABS: Hematocrit 27.3 % (40-54); Hemoglobin 7.8 g/dL (13.0-16.5); Immature Granulocytes Count 0.030 X10^3/uL (0.0-0.0); Mean Corp Hgb Conc 28.6 g/dL (32-36); Mean Corpuscular Volume 84.3 fL (80-94); Mean Platelet Vol. 8.8 fl (6.2-12.0); NRBC Flagged by Analyzer 0 % (0-5); Platelet Count 607 K/mm3 (150-450); RBC Distribution Width CV 19.1 % (11.6-14.6); RBC Distribution Width SD 58.6 fl (35.1-43.9); Red Blood Count 3.24 M/mm3 (4.6-6.2); White Blood Count 6.3 K/mm3 (4.4-11.0)
[2025-04-28 11:06] LABS: Anion Gap 14 (5-15); BUN 19 mg/dL (4-19); BUN/Creat Ratio 12.1 RATIO (10-20); CRP 54.70 mg/L (0.0-3.0); Calcium,Total 9.4 mg/dL (7.6-11.0); Carbon Dioxide 25.8 mmol/L (21.0-32.0); Chloride 102 mmol/L (98-108); Glucose 93 mg/dL (70-99); Potassium 4.1 mmol/L (3.3-5.1)
== END ==
LOC: OLS.ACW300 04:00
PROVIDERS: PCP Family Medicine; Referring Provider Family Medicine; Visit Provider Family Medicine
DX: S31.829D Unspecified open wound of left buttock, subsequent encounter (principal)
CPT/HCPCS: 36415; 80048; 85025; 86140

== ENCOUNTER → 2025-06-03 04:00 | Outpatient (REF) | payer MEDICAID, SELFPAY ==
--- OUTSIDE RECORDS SUMMARY | 2025-06-03 04:01 | XMS RPT_ITS | CCD ---
Author Organization [facility] ion [facility] CliniSywv Care Team Providers Care Program Supervisor Name Role Phone Unavailable Primary Care Provider Unavailbry Jiang MD, Iris Y Unavailable Apolinar NIELSEN, Sreedhar Yousif Unavailable Julio [...] e Provider Unavailable Tyree NIELSEN, Swathi Unavailable [phone] Generic Provider , No Assigned Pcp Primary Car e Provider Unavailable Julio Hare Primary Care Provider Unavail able Julio Hare Attending Provider UnavailJulio Lema Primary Care Unavailable Julio Hare Attending Unavailable Julio Hare Primary Care Unavailable Julio Hare Attending Unavailable Julio Hare Attending Unavailable Julio Hare Primary Care Unavailable Julio Hare Primary Care Unavailable Julio Hare Referring Unavailable Julio Hare Attending Unavailable Julio Hare Primary Care Unavailable Julio Hare Referring Unavailable Julio Hare Attending Unavailable Julio Hare Primary Care Unavailable Julio Hare Attending Unavailable Julio Hare Attending Unavailable Julio Hare Primary Care Unavailable Julio Hare Primary Care Unavailable Julio Hare Attending Unavailable GENERIC PROVIDER, NO ASSIGNED PCP Primary Care Unavailable KASSI DUMONT Attending Unavailable KIMBER LAST Attending Unavailable ЕЛЕНА, MARLON Attending Unavailable ЕЛЕНА, MARLON Attending Unavailable ЕЛЕНА, MARLON Attending Unavailable AL DEEK, NIDAL Attending Unavailable GENERIC PROVIDER, NO ASSIGNED PCP Primary Care Unavailable KRIS REN Attending Unavailable XIOMARA KAUFFMAN Referring Unavailable ANKIT NINO Admitting Unavailable MICA LY Attending Unavailable GENERIC PROVIDER, NO ASSIGNED PCP Primary Care Unavailable BROOKE, GILBERT S Admitting Unavailable DELGADO RENEE Consulting Unavailable FIDEL CLARKE Attending Unavailable GENERIC PROVIDER, NO ASSIGNED PCP Primary Care Unavailable BALDOMERO WILSON Admitting Unavailabl e FER KENNEDY Referring Unavailable HEATHER LACKEY Attending Unavailable GENERIC PROVIDER, NO ASSIGNED PCP Primary Care Unavailable SREEDHAR JIANG Y Attending Unavailable BROOKE, GILBERT S Referring Unavailable LATRICIA SCHROEDER Referring Unavailabl e TOYA RUBIO Admitting Unavailable MACK FRIAS Attending Unavailable GENERIC [...] Primary Care Unavailable ASTRID HAWLEY Attending Unavailable ANAHUEY EZINZOHAIB Referring Unavailable KONG MINA Attending Unavailable SWATHI CLEMENTS Referring Unavailable AL DEEK, NIDAL Admitting Unavailable AL DEEK, HONORIOAL Attending Unavailable GENERIC PROVIDER, NO ASSIGNED PCP [...] [BANANA] Propensity to adverse reactions 5 Itching [facility] (15 sources) Banana Extract Drug Allergy 5 Itching [facility] (1 source) ALLERGIES NOT ON FILE; Translations: [ALLERGIES NOT ON FILE] Propensity to adverse reactions (disorder) [facility] 3 Repository Medications Current Medications Medication Drug [...] 11-10-2024 carbamide peroxide 65 mg/ml otic solution (6 sources) Start: 02-03-2025 carbamide yamilex xide (Debrox) 6.5 % otic solution Indications: Abscess Administer 5 drops into each ear if needed for ear pain (Ear clogged). 15 mL 02/03/2025 Active chlorhexidine gluconate 40 mg/ml medicated liquid soap (20 sources) Start: 04-30-2025 chlorhexidine (Hibiclens) 4 % external liquid Indications: Hidradenitis suppurativa , Wound infection , Squamous cell carcinoma of left thigh Use as directed daily preoperatively 473 mL 04/30/2025 Active Start: 04-30-2025 chlorhexidine (Peridex) 0.12 % solution Indications: Hidradenitis suppurativa , Wound infection , Squamous cell carcinoma of left thigh Swish and spit with 15ml of solution the night before and morning of surgery. Do not swallow. 15 mL 04/30/2025 Active Start: 11-11-2024 chlorhexidine (Hibiclens) 4 % external liquid Indications: Wound infection Apply topically 2 times a day. 11/27/2024 Suspended cholecalciferol 0.025 mg ora l tablet (2 sources) Vitamin D Start: 12-11-2024 Start: 12-07-2024 End: 12-10-2024 cholecalciferol (Vitamin D3) 200 Unit tablet split tablet (6 sources) cholecalciferol (Vitamin D3) 200 Unit tablet split tablet Take 10,000 Units by mouth daily. Active cholecalciferol, vitamin D3, (VITAMIN D3 ORAL) (1 source) take 13941 [IU] by mouth once daily cholecalciferol, vitamin [...] Active docusate sodium 50 mg / sennosides, intermediate 8.6 mg oral tablet (20 sources) Start: [...] ml enoxaparin sodium 100 mg/ml prefilled syringe (20 sources) Low Molecular Weight Heparin Start: 02-18-2025 [...] (1 source) Unfractionated Heparin, Anti-coagulant Start: 10-11-2024 HYDROmorphone hydrochloride 8 mg oral tablet (16 sources) Opioid Agonist Start: 04-29-2025 End: 05-29-2025 take 1 tablet by mouth every four hours for pain HYDROmorphone (Dilaudid) 8 mg tablet Indications: Cancer associated pain Take 1 tablet (8 mg) by mouth every 4 hours if needed for severe pain (7 - 10). 180 tablet 04/29/2025 05/29/2025 Active Start: 12-07-2024 Start: 11-15-2024 End: 11-19-2024 Start: [...] 12/24/2024 Active ibuprofen 600 mg oral tablet (11 sources) Nonsteroidal Anti-inflammatory Drug Start: 03-10-2025 End: [...] daily at bedtime. 11/27/2024 03/10/2025 Discontinued (Reorder) methadone hydrochloride 10 mg oral tablet (14 sources) Opioid Agonist Start: 04-29-2025 End: 05-29-2025 take 1 tablet by mouth twice daily, then take 1.5 tablets by mouth once daily at bedtime methadone (Dolophine) 10 mg tablet Indications: Cancer associated pain Take 1 tablet (10 mg) by mouth 2 times daily (morning and late afternoon) AND 1.5 tablets (15 mg) once daily at bedtime. 105 tablet 04/29/2025 05/29/2025 Active Start: 02-17-2025 End: 03-10-2025 take 2 tablets [...] Oral, Every 8 hours, First dose on 12/22/24 at 1300 midodrine hydrochloride 10 mg oral tablet (6 sources) alpha-Adrenergic Agonist Start: 02-03-2025 take 1 [...] pantoprazole 20 mg delayed release oral tablet (5 sources) Proton Pump Inhibitor take 1 tablet [...] a day. As directed. Suspended Study STOP-HS1 [id number] povorcitinib 45mg or 75mg tablet (20 sources) Start: 09-30-2024 take 1 tablet by mouth once daily in the morning Study STOP-HS1 [id number] povorcitinib 45mg or 75mg tablet Indications: Clinical trial participant Take 1 tablet by mouth once daily. Preferably in the morning, with a full glass of water. 31 tablet 09/30/2024 Active Start: 08-20-2024 take 1 tablet by barbara th once daily in the morning Study STOP-1 [id number] povorcitinib 45mg or 75mg tablet Indications: Clinical trial participant Take 1 tablet by mouth once daily. Preferably in the morning, with a full glass of water. 62 tablet 08/20/2024 Active Start: 07-08-2024 take 1 tablet by barbara th once daily in the morning Study STOP-[facility] [id number] povorcitinib 45mg or 75mg tablet Indications: Clinical trial participant Take 1 tablet by mouth once daily. Preferably in the morning, with a full glass of water. 62 tablet 07/08/2024 Active Start: 05-27-2024 take 1 tablet by barbara th once daily in the morning Study STOP-[facility] [id number] povorcitinib 45mg or 75mg tablet Indications: Clinical trial participant Take 1 tablet by mouth once daily. Preferably in the morning, with a full glass of water. 62 tablet 05/27/2024 Active Start: 04-12-2024 take 1 tablet by barbara th once daily in the morning Study STOP-1 [id number] povorcitinib 45mg or 75mg tablet Indications: Clinical trial participant Take 1 tablet by mouth once daily. Preferably in the morning, with a full glass of water. 62 tablet 04/12/2024 Active Start: 04-04-2024 take 1 tablet by barbara th once daily in the morning Study STOP-1 [id number] povorcitinib 45mg or 75mg tablet Indications: Clinical trial participant Take 1 tablet by mouth once daily. Preferably in the morning, with a full glass of water. 31 tablet 04/04/2024 Active Start: 02-29-2024 take 1 tablet by barbara th once daily in the morning Study STOP-1 [id number] povorcitinib 45mg or 75mg tablet Indications: Clinical trial participant Take 1 tablet by mouth once daily. Preferably in the morning, with a full glass of water. 31 tablet 02/29/2024 Active Study STOP-HS1 [id number] povorcitinib 45mg, 75mg or placebo tablet (20 sources) Start: 02-09-2024 take 1 tablet by mouth once daily in the morning Study STOP-HS1 [id number] povorcitinib 45mg, 75mg or placebo tablet Indications: Clinical trial participant Take 1 tablet by mouth once daily. Preferably in the morning, with a full glass of water. 31 tablet 02/09/2024 Active Start: 01-16-2024 take 1 tablet by barbara th once daily in the morning Study STOP-HS1 [id number] povorcitinib 45mg, 75mg or placebo tablet Indications: Clinical trial participant Take 1 tablet by mouth once daily. Preferably in the morning, with a full glass of water. 31 tablet 01/16/2024 Active Start: 12-29-2023 take 1 tablet by barbara th once daily in the morning Study STOP-HS1 [id number] povorcitinib 45mg, 75mg or placebo tablet Indications: Clinical trial participant Take 1 tablet by mouth once daily. Preferably in the morning, with a full glass of water. 31 tablet 12/29/2023 Active Start: 12-11-2023 take 1 tablet by barbara th once daily in the morning Study STOP-HS1 [id number] povorcitinib 45mg, 75mg or placebo tablet Indications: Clinical trial participant Take 1 tablet by mouth once daily. Preferably in the morning, with a full glass of water. 31 tablet 12/11/2023 Active Start: 12-11-2023 take 1 tablet by barbara th once daily in the morning Study STOP-HS1 [id number] povorcitinib 45mg, 75mg or placebo tablet Indications: [...] line, Starting on 12/08/24 at 1023, Give IL if patient is unable to take orally [...] patient preference? Yes 20 ml albumin human, intermediate 250 mg/ml injection (2 sources) Human Serum [...] Daily, First dose on Mon09/14/24 at 0900 72 hr fentaNYL 0.075 mg/hr transdermal system [...] 11-21-2024 End: 11-21-2024 Start: 11-10-2024 End: 11-10-2024 metroNIDAZOLE 500 mg oral tablet (1 source) [...] in 0.9% sodium chloride 250 mL infusion (Brn-Xibnwp-Qaukm) (premix) (2 sources) Start: 12-22-2024 End: 12-23-2024 [...] and Soft Tissue Infection polyethylene glycol 3350 73414 mg powder for oral solution (20 sources) [...] hours, First dose on 11/09/24 at 0500, ADD-Rainbow bag, Suspected Indication (Select all that apply): [...] Date Documented Da te Episodic/Chronic Administrative/social admission (8 sources) Patient encounter status; Translations: [Other specified counseling] Onset: 5 09-24-2024 Episodic Cancer; other and unspecified primary (1 source) Malignant tumor of lower limb 03-03-2025 Chronic Chronic kidney disease (20 sources) Chronic renal insufficiency; Translations: [Chronic kidney disease, unspecified] Onset: 5 10-15-2024 Chronic Diseases of white blood cells (1 source) Elevated white blood cell count, unspecified; Translations: [Elevated white blood cell count, unspecified] Onset: 5 Chronic E Codes: Adverse effects of medical drugs (4 sources) Adverse effect of methadone, sequela; Translations: [Adverse effect of other opioids, initial encounter] Onset: 5 Episodic Esophageal disorders (3 sources) Gastroesophageal reflux disease [...] sources) Cerebral cryptococcosis; 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] Onset: Episodic Neoplasms of unspecified nature or uncertain behavior (4 sources) Monoclonal gammopathy of uncertain significance; Translations: [Monoclonal gammopathy] Onset: 5 11-29-2024 Chronic Open wounds of extremities (12 sources) Injury of thigh; Translations: [Unspecified open wound, unspecified thigh, initial encounter] Onset: 5 03-03-2025 Episodic Open wounds of head; neck; and trunk (11 sources) Injury of buttock; Translations: [Unspecified open wound of left buttock, initial encounter] Onset: 4 09-12-2024 Episodic Other aftercare (1 source) Drug therapy finding; Translations: [Other 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 (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) drug therapy] 11-27-2024 Episodic Other aftercare (1 source) Long-term current use of drug therapy; Translations: [Encounter for therapeutic drug level monitoring] 03-10-2025 Episodic Other aftercare (2 sources) Encounter for therapeutic drug level monitoring; Translations: [Encounter for therapeutic drug level monitoring] Onset: Episodic Other aftercare (2 sources) 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; Translations: [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 opiate 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] Onset: Episodic Other connective tissue disease (1 source) [...] [Unspecified lack of coordination] Onset: Episodic Other nutritional; endocrine; and metabolic disorders (20 sources) Hypercalcemia; Translations: [Hypercalcemia] Onset: 5 11-29-2024 Chronic Other nutritional; endocrine; and metabolic disorders (1 source) Hypercalcemia; Translations: [Hypercalcemia] Onset: Chronic Other skin disorders (1 source) Skin lesion; Translations: [Disorder of the skin and subcutaneous tissue, unspecified] 11-15-2024 Episodic Other upper respiratory disease (1 source) [...] Patient encounter status 09-24-2024 Unclassified (2 sources) Autogenerated Problem Onset: 5 03-24-2025 Unclassified (2 sources) OTV; Translations: [OTV] Onset: 5 Unclassified (2 sources) WOUND INFECTION\\HYPOTENSIVE Onset: Past or Other Problems Problem Classification Problem Date Documented Da te Episodic/Chronic Acute and unspecified renal failure (1 source) Acute kidney failure, unspecified; Translations: [Acute kidney failure, unspecified] Onset: 01-11-2025 Episodic Bacterial infection; unspecified site (20 sources) Bacteremia caused by Gram-positive bacteria; Translations: [Bacteremia] Onset: 10-10-2024 10-21-2024 Episodic Deficiency and other anemia (6 sources) Anemia; Translations: [Anemia, unspecified] Onset: 02-04-2025 02-04-2025 Episodic Deficiency and other anemia (1 source) Iron deficiency anemia, unspecified; Translations: [Iron deficiency anemia, unspecified] Onset: 01-11-2025 Episodic Nausea and vomiting (5 sources) Nausea; Translations: [Nausea] Onset: 09-13-2024 09-17-2024 Episodic Nutritional deficiencies (3 sources) Vitamin deficiency; Translations: [Vitamin deficiency, unspecified] Onset: 11-10-2024 11-27-2024 Episodic Other aftercare (2 sources) Other skilled nursing (current) drug therapy; Translations: [Other skilled nursing (current) drug therapy] Onset: 11-10-2024 Episodic Other [...] region, initial encounter] Onset: 09-13-2024 Episodic Other non-epithelial cancer of skin (20 sources) Squamous cell carcinoma; Translations: [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, including hip] Onset: 11-29-2024 11-19-2024 Episodic Other skin disorders (20 sources) Hidradenitis suppurativa; Translations: [Hidradenitis suppurativa] Onset: 09-12-2024 04-08-2023 Episodic Other skin disorders (3 sources) Hidradenitis suppurativa; Translations: [Hidradenitis suppurativa] Onset: 09-12-2024 Episodic Other skin disorders (2 sources) Disorder [...] Test Name Value Interpretation Reference Range Facility Drugs of abuse screen W Refl ex confirm panel (U)on 05-13-2025 Amphetamines Screen Ql (U) Negative Normal Presumptive Negative [facility] Comment on above: Order Comment: Drug screen results are presumptive and should not be used to assesscompliance with prescribed medication. Definitive confirmatory drug testinghas been added to this sample for any positive screen result and will bereported separately.Toxicology screening results are reported qualitatively. The concentration mustbe greater than or equal to the cutoff to be reported as positive. The concentrationat which the screening test can detect an individual drug or metabolite varies.The absence of expected drug(s) and/or drug metabolite(s) may indicate non-compliance,inappropriate timing of specimen collection relative to drug administration, poor drugabsorption, diluted/adulterated urine, or limitations of testing. For medical purposesonly; not valid for forensic use.Interpretive questions should be directed to the laboratory medical directors. Result Comment: CUTO FF LEVEL: 500 NG/MLCross-reactivity has been reported with high concentrationsof the following drugs: buproprion, chloroquine, chlorpromazine,ephedrine, mephentermine, fenfluramine, phentermine,phenylpropanolamine, pseudoephedrine, and propranolol. Performed By: #### 8 7428-9 ####BHANU Treviño ([id number])[facility] ([facility])[address] [place] [address] Barbiturates Screen Ql (U) Negative Normal Presumptive Negative [facility] Comment on above: Order Comment: Drug screen results are presumptive and should not be used to assesscompliance with prescribed medication. Definitive confirmatory drug testinghas been added to this sample for any positive screen result and will bereported separately.Toxicology screening results are reported qualitatively. The concentration mustbe greater than or equal to the cutoff to be reported as positive. The concentrationat which the screening test can detect an individual drug or metabolite varies.The absence of expected drug(s) and/or drug metabolite(s) may indicate non-compliance,inappropriate timing of specimen collection relative to drug administration, poor drugabsorption, diluted/adulterated urine, or limitations of testing. For medical purposesonly; not valid for forensic use.Interpretive questions should be directed to the laboratory medical directors. Result Comment: CUTO FF LEVEL: 200 NG/ML Performed By: #### 8 7428-9 ####BHANU Treviño ([id number])[facility] ([facility])[address] [place] [address] Benzodiazepines Ql (U) Negative Normal Presu mptive Negative [facility] Comment on above: Order Comment: Drug screen results are presumptive and should not be used to assesscompliance with prescribed medication. Definitive confirmatory drug testinghas been added to this sample for any positive screen result and will bereported separately.Toxicology screening results are reported qualitatively. The concentration mustbe greater than or equal to the cutoff to be reported as positive. The concentrationat which the screening test can detect an individual drug or metabolite varies.The absence of expected drug(s) and/or drug metabolite(s) may indicate non-compliance,inappropriate timing of specimen collection relative to drug administration, poor drugabsorption, diluted/adulterated urine, or limitations of testing. For medical purposesonly; not valid for forensic use.Interpretive questions should be directed to the laboratory medical directors. Result Comment: CUTO FF LEVEL: 200 NG/ML Performed By: #### 8 7428-9 ####BHANU GREGORY L ([id number])[facility] ([facility])[address] [place] [address] Benzoylecgonine Screen Ql (U) Negative Normal Presumptive Negative [facility] Comment on above: Order Comment: Drug screen results are presumptive and should not be used to assesscompliance with prescribed medication. Definitive confirmatory drug testinghas been added to this sample for any positive screen result and will bereported separately.Toxicology screening results are reported qualitatively. The concentration mustbe greater than or equal to the cutoff to be reported as positive. The concentrationat which the screening test can detect an individual drug or metabolite varies.The absence of expected drug(s) and/or drug metabolite(s) may indicate non-compliance,inappropriate timing of specimen collection relative to drug administration, poor drugabsorption, diluted/adulterated urine, or limitations of testing. For medical purposesonly; not valid for forensic use.Interpretive questions should be directed to the laboratory medical directors. Result Comment: CUTO FF LEVEL: 150 NG/ML Performed By: #### 8 7428-9 ####BHANU Treviño ([id number])[facility] ([facility])[address] [place] [address] Cannabinoids Screen Ql (U) Negative Normal Presumptive Negative [facility] Comment on above: Order Comment: Drug screen results are presumptive and should not be used to assesscompliance with prescribed medication. Definitive confirmatory drug testinghas been added to this sample for any positive screen result and will bereported separately.Toxicology screening results are reported qualitatively. The concentration mustbe greater than or equal to the cutoff to be reported as positive. The concentrationat which the screening test can detect an individual drug or metabolite varies.The absence of expected drug(s) and/or drug metabolite(s) may indicate non-compliance,inappropriate timing of specimen collection relative to drug administration, poor drugabsorption, diluted/adulterated urine, or limitations of testing. For medical purposesonly; not valid for forensic use.Interpretive questions should be directed to the laboratory medical directors. Result Comment: CUTO FF LEVEL: 50 NG/ML Performed By: #### 8 7428-9 ####BHANU Treviño ([id number])[facility] ([facility])[address] [place] [address] fentaNYL+Norfentanyl Screen Ql (U) Negative Normal Presumptive Negative [facility] Comment on above: Order Comment: Drug screen results are presumptive and should not be used to assesscompliance with prescribed medication. Definitive confirmatory drug testinghas been added to this sample for any positive screen result and will bereported separately.Toxicology screening results are reported qualitatively. The concentration mustbe greater than or equal to the cutoff to be reported as positive. The concentrationat which the screening test can detect an individual drug or metabolite varies.The absence of expected drug(s) and/or drug metabolite(s) may indicate non-compliance,inappropriate timing of specimen collection relative to drug administration, poor drugabsorption, diluted/adulterated urine, or limitations of testing. For medical purposesonly; not valid for forensic use.Interpretive questions should be directed to the laboratory medical directors. Result Comment: CUTO FF LEVEL: 5 NG/ML Performed By: #### 8 7428-9 ####BHANU Treviño ([id number])[facility] ([facility])[address] [place] [address] Methadone Screen Ql (U) Positive Abnormal Presumptive Negative [facility] Comment on above: Order Comment: Drug screen results are presumptive and should not be used to assesscompliance with prescribed medication. Definitive confirmatory drug testinghas been added to this sample for any positive screen result and will bereported separately.Toxicology screening results are reported qualitatively. The concentration mustbe greater than or equal to the cutoff to be reported as positive. The concentrationat which the screening test can detect an individual drug or metabolite varies.The absence of expected drug(s) and/or drug metabolite(s) may indicate non-compliance,inappropriate timing of specimen collection relative to drug administration, poor drugabsorption, diluted/adulterated urine, or limitations of testing. For medical purposesonly; not valid for forensic use.Interpretive questions should be directed to the laboratory medical directors. Result Comment: CUTO FF LEVEL: 150 NG/MLThe metabolite O-uauzp-dziedknkcmkncp (LAAM) is notdetected by this method in concentrations that wouldbe found in the urine of patients on LAAM therapy. Performed By: #### 8 7428-9 ####BHANU Treviño ([id number])[facility] ([facility])[address] [place] [address] Opiates Screen Ql (U) Positive Abnormal Presum ptive Negative [facility] Comment on above: Order Comment: Drug screen results are presumptive and should not be used to assesscompliance with prescribed medication. Definitive confirmatory drug testinghas been added to this sample for any positive screen result and will bereported separately.Toxicology screening results are reported qualitatively. The concentration mustbe greater than or equal to the cutoff to be reported as positive. The concentrationat which the screening test can detect an individual drug or metabolite varies.The absence of expected drug(s) and/or drug metabolite(s) may indicate non-compliance,inappropriate timing of specimen collection relative to drug administration, poor drugabsorption, diluted/adulterated urine, or limitations of testing. For medical purposesonly; not valid for forensic use.Interpretive questions should be directed to the laboratory medical directors. Result Comment: CUTO FF LEVEL: 300 NG/MLThe opiate screen does not detect fentanyl, meperidine, ortramadol. Oxycodone is not consistently detected (refer toOxycodone Screen, Urine result). Performed By: #### 8 7428-9 ####BHANU Treviño ([id number])[facility] ([facility])[address] [place] [address] oxyCODONE+oxyMORphone Screen Ql (U) Negative Normal Presumptive Negative [facility] Comment on above: Order Comment: Drug screen results are presumptive and should not be used to assesscompliance with prescribed medication. Definitive confirmatory drug testinghas been added to this sample for any positive screen result and will bereported separately.Toxicology screening results are reported qualitatively. The concentration mustbe greater than or equal to the cutoff to be reported as positive. The concentrationat which the screening test can detect an individual drug or metabolite varies.The absence of expected drug(s) and/or drug metabolite(s) may indicate non-compliance,inappropriate timing of specimen collection relative to drug administration, poor drugabsorption, diluted/adulterated urine, or limitations of testing. For medical purposesonly; not valid for forensic use.Interpretive questions should be directed to the laboratory medical directors. Result Comment: CUTO FF LEVEL: 100 NG/MLThis test will accurately detect both oxycodone and oxymorphone. Performed By: #### 8 7428-9 ####BHANU Treviño ([id number])[facility] ([facility])[address] [place] [address] Phencyclidine Ql (U) Negative Normal Presump tive Negative [facility] Comment on above: Order Comment: Drug screen results are presumptive and should not be used to assesscompliance with prescribed medication. Definitive confirmatory drug testinghas been added to this sample for any positive screen result and will bereported separately.Toxicology screening results are reported qualitatively. The concentration mustbe greater than or equal to the cutoff to be reported as positive. The concentrationat which the screening test can detect an individual drug or metabolite varies.The absence of expected drug(s) and/or drug metabolite(s) may indicate non-compliance,inappropriate timing of specimen collection relative to drug administration, poor drugabsorption, diluted/adulterated urine, or limitations of testing. For medical purposesonly; not valid for forensic use.Interpretive questions should be directed to the laboratory medical directors. Result Comment: CUTO FF LEVEL: 25 NG/MLCross-reactivity has been reported with dextromethorphan. Performed By: #### 8 7428-9 ####BHANU Treviño ([id number])[facility] ([facility])[address] [place] [address] Methadoneon 05-13-2025 Methadone Confirm (U) [Mass/Vol] >1000 High <25 [facility] Comment on above: Order Comment: Metho dology: Quantitative Liquid Chromatography - Tandem Mass SpectrometryIdentification of specific drug(s) taken by specimen donor is problematicdue to common metabolites, some of which are prescription drugs themselves.The absence of expected drug(s) and/or drug metabolite(s) may indicatenon-compliance,inappropriate timing of specimen collection relative to drugadministration, poor drug absorption, diluted/adulterated urine, orlimitations of testing. All drug analytes covered are in the non-glucuronidated(free) forms. The concentration value must be greater than or equal to thecutoff to be reported as positive. Interpretive questions should be directedto the laboratory.The performance characteristics of this test has been validated by the [facility] laboratory site where testing is performed. It has not been cleared or approvedby the FDA. However the FDA has determined that such clearance or approval is notnecessary. Our Laboratory is certified under the Clinical Laboratory ImprovementAmendments of 1988(CLIA)as qualified to perform high complexity clinicallaboratory testing. Result Comment: Cons istent with use of drug containing methadone, such as Dolophine Performed By: #### 1 6246-1 ####BHANU Treviño ([id number])[facility] ([facility])[id number] [place] [address] Methadone Confirm (U) [Mass/ Vol]on 05-13-2025 0-Djxfkymfhx-1,5-Dimet hyl-3,3-Diphenylpyrrol idine (EDDP) Confirm (U) [Mass/Vol] >1000 High <25 [facility] Comment on above: Order Comment: Metho dology: Quantitative Liquid Chromatography - Tandem Mass SpectrometryIdentification of specific drug(s) taken by specimen donor is problematicdue to common metabolites, some of which are prescription drugs themselves.The absence of expected drug(s) and/or drug metabolite(s) may indicatenon-compliance,inappropriate timing of specimen collection relative to drugadministration, poor drug absorption, diluted/adulterated urine, orlimitations of testing. All drug analytes covered are in the non-glucuronidated(free) forms. The concentration value must be greater than or equal to thecutoff to be reported as positive. Interpretive questions should be directedto the laboratory.The performance characteristics of this test has been validated by the [facility] laboratory site where testing is performed. It has not been cleared or approvedby the FDA. However the FDA has determined that such clearance or approval is notnecessary. Our Laboratory is certified under the Clinical Laboratory ImprovementAmendments of 1988(CLIA)as qualified to perform high complexity clinicallaboratory testing. Result Comment: Meth adone metabolite; consistent with use of drug containing methadone, such as Dolophine.??? Performed By: #### 1 6246-1 ####BHANU Treviño ([id number])[facility] ([facility])[address] [place] [address] Opiates Confirm (U) [Mass/Vo l]on 05-13-2025 6-Monoacetylmorphine (6-SURENDRA) Confirm (U) [Mass/Vol] <25 Normal <25 [facility] Comment on above: Order Comment: Metho dology: Quantitative Liquid Chromatography - Tandem Mass SpectrometryIdentification of specific drug(s) taken by specimen donor is problematicdue to common metabolites, some of which are prescription drugs themselves.The absence of expected drug(s) and/or drug metabolite(s) may indicatenon-compliance,inappropriate timing of specimen collection relative to drugadministration, poor drug absorption, diluted/adulterated urine, orlimitations of testing. All drug analytes covered are in the non-glucuronidated(free) forms. The concentration value must be greater than or equal to thecutoff to be reported as positive. Interpretive questions should be directedto the laboratory.The performance characteristics of this test has been validated by the [facility] laboratory site where testing is performed. It has not been cleared or approvedby the FDA. However the FDA has determined that such clearance or approval is notnecessary. Our Laboratory is certified under the Clinical Laboratory ImprovementAmendments of 1988(CLIA)as qualified to perform high complexity clinicallaboratory testing. Performed By: #### 1 7384-9 ####BHANU Treviño ([id number])[facility] ([facility])[address] [place] [address] Codeine Confirm (U) [Mass/Vol] <50 Normal <50 [facility] Comment on above: Order Comment: Metho dology: Quantitative Liquid Chromatography - Tandem Mass SpectrometryIdentification of specific drug(s) taken by specimen donor is problematicdue to common metabolites, some of which are prescription drugs themselves.The absence of expected drug(s) and/or drug metabolite(s) may indicatenon-compliance,inappropriate timing of specimen collection relative to drugadministration, poor drug absorption, diluted/adulterated urine, orlimitations of testing. All drug analytes covered are in the non-glucuronidated(free) forms. The concentration value must be greater than or equal to thecutoff to be reported as positive. Interpretive questions should be directedto the laboratory.The performance characteristics of this test has been validated by the [facility] laboratory site where testing is performed. It has not been cleared or approvedby the FDA. However the FDA has determined that such clearance or approval is notnecessary. Our Laboratory is certified under the Clinical Laboratory ImprovementAmendments of 1988(CLIA)as qualified to perform high complexity clinicallaboratory testing. Performed By: #### 1 7384-9 ####BHANU Treviño ([id number])[facility] ([facility])[address] [place] [address] HYDROcodone cutoff Confirm (U) [Mass/Vol] <25 Normal <25 [facility] Comment on above: Order Comment: Metho dology: Quantitative Liquid Chromatography - Tandem Mass SpectrometryIdentification of specific drug(s) taken by specimen donor is problematicdue to common metabolites, some of which are prescription drugs themselves.The absence of expected drug(s) and/or drug metabolite(s) may indicatenon-compliance,inappropriate timing of specimen collection relative to drugadministration, poor drug absorption, diluted/adulterated urine, orlimitations of testing. All drug analytes covered are in the non-glucuronidated(free) forms. The concentration value must be greater than or equal to thecutoff to be reported as positive. Interpretive questions should be directedto the laboratory.The performance characteristics of this test has been validated by the [facility] laboratory site where testing is performed. It has not been cleared or approvedby the FDA. However the FDA has determined that such clearance or approval is notnecessary. Our Laboratory is certified under the Clinical Laboratory ImprovementAmendments of 1988(CLIA)as qualified to perform high complexity clinicallaboratory testing. Performed By: #### 1 7384-9 ####BHANU Treviño ([id number])[facility] ([facility])[id number] [place] [address] HYDROmorphone Confirm (U) [Mass/Vol] >2500 High <25 [facility] Comment on above: Order Comment: Metho dology: Quantitative Liquid Chromatography - Tandem Mass SpectrometryIdentification of specific drug(s) taken by specimen donor is problematicdue to common metabolites, some of which are prescription drugs themselves.The absence of expected drug(s) and/or drug metabolite(s) may indicatenon-compliance,inappropriate timing of specimen collection relative to drugadministration, poor drug absorption, diluted/adulterated urine, orlimitations of testing. All drug analytes covered are in the non-glucuronidated(free) forms. The concentration value must be greater than or equal to thecutoff to be reported as positive. Interpretive questions should be directedto the laboratory.The performance characteristics of this test has been validated by the [facility] laboratory site where testing is performed. It has not been cleared or approvedby the FDA. However the FDA has determined that such clearance or approval is notnecessary. Our Laboratory is certified under the Clinical Laboratory ImprovementAmendments of 1988(CLIA)as qualified to perform high complexity clinicallaboratory testing. Result Comment: Cons istent with metabolism of codeine, morphine, and hydrocodone. May also reflect independent use of a drug containing hydromorphone. Low concentrations may reflect impurity of another drug such as oxymorphone. Performed By: #### 1 7384-9 ####BHANU Treviño ([id number])[facility] ([facility])[id number] [place] [address] Morphine Confirm (U) [Mass/Vol] <50 Normal <50 [facility] Comment on above: Order Comment: Metho dology: Quantitative Liquid Chromatography - Tandem Mass SpectrometryIdentification of specific drug(s) taken by specimen donor is problematicdue to common metabolites, some of which are prescription drugs themselves.The absence of expected drug(s) and/or drug metabolite(s) may indicatenon-compliance,inappropriate timing of specimen collection relative to drugadministration, poor drug absorption, diluted/adulterated urine, orlimitations of testing. All drug analytes covered are in the non-glucuronidated(free) forms. The concentration value must be greater than or equal to thecutoff to be reported as positive. Interpretive questions should be directedto the laboratory.The performance characteristics of this test has been validated by the [facility] laboratory site where testing is performed. It has not been cleared or approvedby the FDA. However the FDA has determined that such clearance or approval is notnecessary. Our Laboratory is certified under the Clinical Laboratory ImprovementAmendments of 1988(CLIA)as qualified to perform high complexity clinicallaboratory testing. Performed By: #### 1 7384-9 ####BHANU Treviño ([id number])[facility] ([facility])[address] [place] [address] Norhydrocodone Confirm (U) [Mass/Vol] <25 Normal <25 [facility] Comment on above: Order Comment: Metho dology: Quantitative Liquid Chromatography - Tandem Mass SpectrometryIdentification of specific drug(s) taken by specimen donor is problematicdue to common metabolites, some of which are prescription drugs themselves.The absence of expected drug(s) and/or drug metabolite(s) may indicatenon-compliance,inappropriate timing of specimen collection relative to drugadministration, poor drug absorption, diluted/adulterated urine, orlimitations of testing. All drug analytes covered are in the non-glucuronidated(free) forms. The concentration value must be greater than or equal to thecutoff to be reported as positive. Interpretive questions should be directedto the laboratory.The performance characteristics of this test has been validated by the [facility] laboratory site where testing is performed. It has not been cleared or approvedby the FDA. However the FDA has determined that such clearance or approval is notnecessary. Our Laboratory is certified under the Clinical Laboratory ImprovementAmendments of 1988(CLIA)as qualified to perform high complexity clinicallaboratory testing. Performed By: #### 1 7384-9 ####BHANU Treviño ([id number])[facility] ([facility])[id number] [place] [address] Noroxycodone Confirm (U) [Mass/Vol] <25 Normal <25 [facility] Comment on above: Order Comment: Metho dology: Quantitative Liquid Chromatography - Tandem Mass SpectrometryIdentification of specific drug(s) taken by specimen donor is problematicdue to common metabolites, some of which are prescription drugs themselves.The absence of expected drug(s) and/or drug metabolite(s) may indicatenon-compliance,inappropriate timing of specimen collection relative to drugadministration, poor drug absorption, diluted/adulterated urine, orlimitations of testing. All drug analytes covered are in the non-glucuronidated(free) forms. The concentration value must be greater than or equal to thecutoff to be reported as positive. Interpretive questions should be directedto the laboratory.The performance characteristics of this test has been validated by the [facility] laboratory site where testing is performed. It has not been cleared or approvedby the FDA. However the FDA has determined that such clearance or approval is notnecessary. Our Laboratory is certified under the Clinical Laboratory ImprovementAmendments of 1988(CLIA)as qualified to perform high complexity clinicallaboratory testing. Performed By: #### 1 7384-9 ####BHANU Treviño ([id number])[facility] ([facility])[id number] [place] [address] oxyCODONE Confirm (U) [Mass/Vol] <25 Normal <25 [facility] Comment on above: Order Comment: Metho dology: Quantitative Liquid Chromatography - Tandem Mass SpectrometryIdentification of specific drug(s) taken by specimen donor is problematicdue to common metabolites, some of which are prescription drugs themselves.The absence of expected drug(s) and/or drug metabolite(s) may indicatenon-compliance,inappropriate timing of specimen collection relative to drugadministration, poor drug absorption, diluted/adulterated urine, orlimitations of testing. All drug analytes covered are in the non-glucuronidated(free) forms. The concentration value must be greater than or equal to thecutoff to be reported as positive. Interpretive questions should be directedto the laboratory.The performance characteristics of this test has been validated by the [facility] laboratory site where testing is performed. It has not been cleared or approvedby the FDA. However the FDA has determined that such clearance or approval is notnecessary. Our Laboratory is certified under the Clinical Laboratory ImprovementAmendments of 1988(CLIA)as qualified to perform high complexity clinicallaboratory testing. Performed By: #### 1 7384-9 ####BHANU Treviño ([id number])[facility] ([facility])[address] [place] [address] oxyMORphone Confirm (U) [Mass/Vol] <25 Normal <25 [facility] Comment on above: Order Comment: Metho dology: Quantitative Liquid Chromatography - Tandem Mass SpectrometryIdentification of specific drug(s) taken by specimen donor is problematicdue to common metabolites, some of which are prescription drugs themselves.The absence of expected drug(s) and/or drug metabolite(s) may indicatenon-compliance,inappropriate timing of specimen collection relative to drugadministration, poor drug absorption, diluted/adulterated urine, orlimitations of testing. All drug analytes covered are in the non-glucuronidated(free) forms. The concentration value must be greater than or equal to thecutoff to be reported as positive. Interpretive questions should be directedto the laboratory.The performance characteristics of this test has been validated by the [facility] laboratory site where testing is performed. It has not been cleared or approvedby the FDA. However the FDA has determined that such clearance or approval is notnecessary. Our Laboratory is certified under the Clinical Laboratory ImprovementAmendments of 1988(CLIA)as qualified to perform high complexity clinicallaboratory testing. Performed By: #### 1 7384-9 ####BHANU Treviño ([id number])[facility] ([facility])[address] [place] [address] Blood type and Indirect anti body screen panel (Bld)on 04-30-2025 ABO group Nom (Bld) A Normal [facility] Comment on above: Performed By: #### 3 4532-2 ####BHANU Trveiño ([id number])[facility] ([facility])[id number] [place] [address] Blood group antibody screen Ql Negative [facility] Comment on above: Performed By: #### 3 4532-2 ####BHANU Treviño ([id number])[facility] ([facility])[address] [place] [address] D Ag Ql (Bld) Positive [facility] Comment on above: Performed By: #### 3 4532-2 ####BHNAU Trveiño ([id number])[facility] ([facility])[id number] [place] [address] CBC W Auto Differential pane l (Bld)on 04-30-2025 Basophils (Bld) [#/Vol] 0.05 x10*3/uL Normal 0.00-0.10 [facility] Comment on above: Performed By: #### 5 7021-8 ####BHANU Treviño ([id number])[facility] ([facility])[address] [place] [address] Basophils/100 WBC (Bld) 0.6 % Normal 0.0-2.0 [facility] Comment on above: Performed By: #### 5 7021-8 ####BHANU Treviño ([id number])[facility] ([facility])[address] [place] [address] Eosinophils (Bld) [#/Vol] 0.63 x10*3/uL Normal 0.00-0.70 [facility] Comment on above: Performed By: #### 5 7021-8 ####BHANU Treviño ([id number])[facility] ([facility])[id number] [place] [address] Eosinophils/100 WBC (Bld) 7.5 % Normal 0.0-6.0 [facility] Comment on above: Performed By: #### 5 7021-8 ####BHANU Treviño ([id number])[facility] ([facility])[id number] [place] [address] Erythrocyte distribution width (RBC) [Ratio] 19.0 % High 11.5-14.5 [facility] Comment on above: Performed By: #### 5 7021-8 ####BHANU Treviño ([id number])[facility] ([facility])[address] [place] [address] Hematocrit (Bld) [Volume fraction] 29.5 % Low 41.0-52.0 [facility] Comment on above: Performed By: #### 5 7021-8 ####BHANU Treviño ([id number])[facility] ([facility])[id number] [place] [address] Hemoglobin (Bld) [Mass/Vol] 8.2 g/dL Low 13.5-17.5 [facility] Comment on above: Performed By: #### 5 7021-8 ####BHANU Treviño ([id number])[facility] ([facility])[id number] [place] [address] Immature granulocytes (Bld) [#/Vol] 0.03 x10*3/uL Normal 0.00-0.70 [facility] Comment on above: Performed By: #### 5 7021-8 ####BHANU Treviño ([id number])[facility] ([facility])[address] [place] [address] Immature granulocytes/100 WBC (Bld) 0.4 % Normal 0.0-0.9 [facility] Comment on above: Result Comment: Christine ture Granulocyte Count (IG) includes promyelocytes, myelocytes and metamyelocytes but does not include bands. Percent differential counts (%) should be interpreted in the context of the absolute cell counts (cells/UL). Performed By: #### 5 7021-8 ####BHANU Treviño ([id number])[facility] ([facility])[address] [place] [address] Lymphocytes (Bld) [#/Vol] 1.29 x10*3/uL Normal 1.20-4.80 [facility] Comment on above: Performed By: #### 5 7021-8 ####BHANU Treviño ([id number])[facility] ([facility])[address] [place] [address] Lymphocytes/100 WBC (Bld) 15.4 % Normal 13.0-44.0 [facility] Comment on above: Performed By: #### 5 7021-8 ####BHANU Treviño ([id number])[facility] ([facility])[address] [place] [address] MCH (RBC) [Entitic mass] 23.9 pg Low 26.0-34.0 [facility] Comment on above: Performed By: #### 5 7021-8 ####BHANU Treviño ([id number])[facility] ([facility])[address] [place] [address] MCHC (RBC) [Mass/Vol] 27.8 g/dL Low 32.0-36.0 [facility] Comment on above: Performed By: #### 5 7021-8 ####BHANU Treviño ([id number])[facility] ([facility])[address] [place] [address] MCV (RBC) [Entitic vol] 86 fL Normal 80-100 [facility] Comment on above: Performed By: #### 5 7021-8 ####BHANU Treviño ([id number])[facility] ([facility])[address] [place] [address] Monocytes (Bld) [#/Vol] 0.56 x10*3/uL Normal 0.10-1.00 [facility] Comment on above: Performed By: #### 5 7021-8 ####BHANU Treviño ([id number])[facility] ([facility])[address] [place] [address] Monocytes/100 WBC (Bld) 6.7 % Normal 2.0-10.0 [facility] Comment on above: Performed By: #### 5 7021-8 ####BHANU Treviño ([id number])[facility] ([facility])[address] [place] [address] Neutrophils (Bld) [#/Vol] 5.79 x10*3/uL Normal 1.20-7.70 [facility] Comment on above: Result Comment: Perc ent differential counts (%) should be interpreted in the context of the absolute cell counts (cells/uL). Performed By: #### 5 7021-8 ####BHANU Treviño ([id number])[facility] ([facility])[address] [place] [address] Neutrophils/100 WBC (Bld) 69.4 % Normal 40.0-80.0 [facility] Comment on above: Performed By: #### 5 7021-8 ####BHANU Treviño ([id number])[facility] ([facility])[address] [place] [address] Nucleated RBC/100 WBC (Bld) [Ratio] 0.0 /100 WBCs Normal 0.0-0.0 [facility] Comment on above: Performed By: #### 5 7021-8 ####BHANU Treviño ([id number])[facility] ([facility])[address] [place] [address] Platelets (Bld) [#/Vol] 639 x10*3/uL High 150-450 [facility] Comment on above: Performed By: #### 5 7021-8 ####BHANU Treviño ([id number])[facility] ([facility])[address] [place] [address] RBC (Bld) [#/Vol] 3.43 x10*6/uL Low 4.50-5.90 [facility] Comment on above: Performed By: #### 5 7021-8 ####BHANU Treviño ([id number])[facility] ([facility])[address] [place] [address] WBC (Bld) [#/Vol] 8.4 x10*3/uL Normal 4.4-11.3 [facility] Comment on above: Performed By: #### 5 7021-8 ####BHANU Treviño ([id number])[facility] ([facility])[address] [place] [address] Comprehensive metabolic 2000 panelon 04-30-2025 Albumin BCP dye [Mass/Vol] 3.4 g/dL Normal 3.4-5.0 [facility] Comment on above: Performed By: #### 2 4323-8 ####BHANU Treviño ([id number])[facility] ([facility])[address] [place] [address] ALP [Catalytic activity/Vol] 185 U/L High 33-120 [facility] Comment on above: Performed By: #### 2 4323-8 ####BHANU Treviño ([id number])[facility] ([facility])[address] [place] [address] ALT With P-5'-P [Catalytic activity/Vol] 13 U/L Normal 10-52 [facility] Comment on above: Result Comment: Sydni ents treated with Sulfasalazine may generate falsely decreased results for ALT. Performed By: #### 2 4323-8 ####BHANU Treviño ([id number])[facility] ([facility])[address] [place] [address] Anion gap [Moles/Vol] 17 mmol/L Normal 10-20 [facility] Comment on above: Performed By: #### 2 4323-8 ####BHANU Treviño ([id number])[facility] ([facility])[address] [place] [address] AST With P-5'-P [Catalytic activity/Vol] 11 U/L Normal 9-39 [facility] Comment on above: Performed By: #### 2 4323-8 ####BHANU Treviño ([id number])[facility] ([facility])[address] [place] [address] Bilirubin [Mass/Vol] 0.2 mg/dL Normal 0.0-1.2 [facility] Comment on above: Performed By: #### 2 4323-8 ####BHANU Treviño ([id number])[facility] ([facility])[address] [place] [address] Calcium [Mass/Vol] 9.3 mg/dL Normal 8.6-10.6 [facility] Comment on above: Performed By: #### 2 4323-8 ####BHANU Treviño ([id number])[facility] ([facility])[address] [place] [address] Chloride [Moles/Vol] 99 mmol/L Normal 98-107 [facility] Comment on above: Performed By: #### 2 4323-8 ####BHANU GREGORY L ([id number])[facility] ([facility])[address] [place] [address] CO2 [Moles/Vol] 29 mmol/L Normal 21-32 [facility] Comment on above: Performed By: #### 2 4323-8 ####BHANU Treviño ([id number])[facility] ([facility])[address] [place] [address] Creatinine [Mass/Vol] 1.52 mg/dL High 0.50-1.30 [facility] Comment on above: Performed By: #### 2 4323-8 ####BHANU GREGORY L ([id number])[facility] ([facility])[address] [place] [address] Glomerular filtration rate 55 mL/min/1.73m*2 Low >60 [facility] Comment on above: Result Comment: Calc ulations of estimated GFR are performed using the 2020 CKD-EPI Study Refit equation without the race variable for the IDMS-Traceable creatinine methods.https://jasn.asnjournals.org/content//A SN.6081357921 Performed By: #### 2 4323-8 ####BHANU GREGORY L ([id number])[facility] ([facility])[address] [place] [address] Glucose [Mass/Vol] 89 mg/dL Normal 74-99 [facility] Comment on above: Performed By: #### 2 4323-8 ####BHANU GREGORY L ([id number])[facility] ([facility])[address] [place] [address] Potassium [Moles/Vol] 4.9 mmol/L Normal 3.5-5.3 [facility] Comment on above: Performed By: #### 2 4323-8 ####BHANU GREGORY L ([id number])[facility] ([facility])[address] [place] [address] Protein [Mass/Vol] 7.7 g/dL Normal 6.4-8.2 [facility] Comment on above: Performed By: #### 2 4323-8 ####BHANU GREGORY L ([id number])[facility] ([facility])[address] [place] [address] Sodium [Moles/Vol] 140 mmol/L Normal 136-145 [facility] Comment on above: Performed By: #### 2 4323-8 ####BHANU FLEMINGMOJOSEFA L ([id number])[facility] ([facility])[address] [place] [address] Urea nitrogen [Mass/Vol] 17 mg/dL Normal 6-23 [facility] Comment on above: Performed By: #### 2 4323-8 ####BHANU Treviño ([id number])[facility] ([facility])[address] [place] [address] Staphylococcus aureus.methic illin resistant isolateon 04-30-2025 MRSA isol Org specific cx Ql (Nose) Abnormal [facility] Comment on above: Performed By: #### 5 2969-3 ####BHANU Treviño ([id number])[facility] ([facility])[address] [place] [address] Gram stainOrdered By: Julio Nolasco on 03-18-2025 Microscopic observation Gram stain Nom (Unsp spec) [facility] Routine wound cultureOrdered By: Julio Nolasco on 03-18-2025 Microbial culture, routine Morganella morganii sp morgani Abnormal [facility] Anion gap in Serum or Plasma Ordered By: Julio Nolasco on 02-20-2025 Anion gap [Moles/Vol] 13 mmol/L 5-15 [facility] BUN/creatinine ratioOrdered By: Julio Nolasco on 02-20-2025 Urea nitrogen/Creatinine [Mass ratio] 11.2 mg/mg 10-20 [facility] Bilirubin, totalOrdered By: Julio Nolasco on 02-20-2025 Bilirubin [Mass/Vol] 0.25 mg/dL 0.00-1.30 [facility] Calculated very low density lipoprotein (VLDL) cholesterol measurementOrdered By: Julio Nolasco on 02-20-2025 Calculated very low density lipoprotein (VLDL) cholesterol measurement 60 mg/dL High 5-40 [facility] Carbon dioxide, total [Moles /volume] in Central venous bloodOrdered By: Julio Nolasco on 02-20-2025 CO2 [Moles/Vol] 22.1 mmol/L 21.0-32.0 [facility] Chloride assayOrdered By: Antwon Nolasco on 02-20-2025 Chloride [Moles/Vol] 103 mmol/L 98-108 [facility] Erythrocyte distribution wid th ratioOrdered By: Julio Nolasco on 02-20-2025 Erythrocyte distribution width (RBC) [Ratio] 19.9 % High 11.6-14.6 [facility] Erythrocyte distribution wid th standard deviationOrdered By: Julio Nolasco on 02-20-2025 Erythrocyte distribution width (RBC) [Ratio] 57.8 fl High 35.1-43.9 [facility] Glomerular filtration rate ( GFR) estimation/1.73 sq m using serum, plasma, or whole bOrdered By: Julio Nolasco on 02-20-2025 GFR/1.73 sq M.predicted among non-blacks MDRD (S/P/Bld) [Vol rate/Area] 62 mL/min/{1.73_m2} >60 [facility] Comment on above: mL/min/1.73m2 CKD-EP I Creatinine Equation (2020) Hematocrit Auto (Bld) [Volum e fraction]Ordered By: Julio Nolasco on 02-20-2025 Hematocrit (Bld) [Volume fraction] 25.1 % Low 40-54 [facility] Hemoglobin measurementOrdere d By: Julio Nolasco on 02-20-2025 Hemoglobin (Bld) [Mass/Vol] 7.7 g/dL Low 13.0-16.5 [facility] LDL calc ser/plasOrdered By: Julio Nolasco on 02-20-2025 Cholesterol in LDL [Mass/Vol] 94 mg/dL [facility] Comment on above: Hnjhhwzkdq=408-685 m g/dL & Higher Aliy=684 mg/dL or greater Laboratory - Chemistry and C hemistry - challengeOrdered By: Julio Nolasco on 02-20-2025 AST [Catalytic activity/Vol] 17 U/L <38 [facility] MCV (mean corpuscular volume ) determinationOrdered By: Julio Nolasco on 02-20-2025 MCV (RBC) [Entitic vol] 79.2 fL Low 80-94 [facility] Magnesium measurement (mass/ volume)Ordered By: Julio Nolasco on 02-20-2025 Magnesium (Unsp spec) [Mass/Vol] 2.1 mg/dL 1.5-2.2 [facility] Mean corpuscular hemoglobin (MCH) determinationOrdered By: Julio Nolasco on 02-20-2025 MCH (RBC) [Entitic mass] 24.3 pg Low 27.0-32.0 [facility] Mean corpuscular hemoglobin concentration (MCHC) determinationOrdered By: Julio Nolasco on 02-20-2025 MCHC (RBC) [Mass/Vol] 30.7 g/dL Low 32-36 [facility] Mean platelet volume determi nationOrdered By: Julio Nolasco on 02-20-2025 Platelet mean volume (Bld) [Entitic vol] 9.4 fL 6.2-12.0 [facility] Platelet countOrdered By: Antwon Nolasco on 02-20-2025 Platelets (Bld) [#/Vol] 880 10*3/uL High 150-450 [facility] Comment on above: CRITICAL VALUE DAVALOS D TO GRISSHERRY FIGUEROA02/20/25 0928 Ainsley Lara.RESULTS READ BACK BY SAME. Potassium measurement (mass/ volume)Ordered By: Julio Nolasco on 02-20-2025 Potassium (Unsp spec) [Mass/Vol] 4.7 mmol/L 3.3-5.1 [facility] RBC Auto (Bld) [#/Vol]Ordere d By: Julio Nolasco on 02-20-2025 RBC (Bld) [#/Vol] 3.17 10*6/uL Low 4.6-6.2 [facility] Screening total cholesterol/ high density lipoprotein (HDL) cholesterol ratioOrdered By: Julio Nolasco on 02-20-2025 Cholesterol.total/Chol esterol in HDL [Mass ratio] 9.77 {ratio} [facility] Serum creatinine measurement (mass/volume)Ordered By: Julio Nolasco on 02-20-2025 Creatinine [Mass/Vol] 1.38 mg/dL High 0.70-1.20 [facility] Serum globulin measurementOr dered By: Julio Nolasco on 02-20-2025 Globulin (S) [Mass/Vol] 4.9 g/dL High 2.2-4.2 [facility] Serum glucose measurement (m ass/volume)Ordered By: Julio Nolasco on 02-20-2025 Glucose [Mass/Vol] 99 mg/dL 70-99 [facility] Serum or plasma alanine mora otransferase (ALT) measurementOrdered By: Julio Nolasco on 02-20-2025 ALT [Catalytic activity/Vol] 18 U/L <47 [facility] Serum or plasma albumin mervat urement (mass/volume)Ordered By: Julio Nolasco on 02-20-2025 Albumin [Mass/Vol] 2.9 g/dL Low 3.5-5.0 [facility] Serum or plasma albumin/glob ulin mass ratioOrdered By: Julio Nolasco on 02-20-2025 Albumin/Globulin [Mass ratio] 0.6 {ratio} Low 0.9-2.4 [facility] Serum or plasma alkaline cata sphatase measurementOrdered By: Julio Nolasco on 02-20-2025 ALP [Catalytic activity/Vol] 172 U/L High 40-129 [facility] Serum or plasma calcium mervat urement (mass/volume)Ordered By: Julio Nolasco on 02-20-2025 Calcium [Mass/Vol] 8.9 mg/dL 7.6-11.0 [facility] Serum or plasma cholesterol in HDL measurement (mass/volume)Ordered By: Julio Nolasco on 02-20-2025 Cholesterol in HDL [Mass/Vol] 18 mg/dL Low >40 [facility] Comment on above: National Cholesterol Education Program (NCEP) guidelines:<40 mg/dL: Low HDL-cholesterol (major risk factor for CHD)>= 60 mg/dL: High HDL-cholesterol (negative risk factor for CHD)HDL-cholesterol is affected by a number of factors, e.g. smoking, exercise, hormones, sex and age. Serum or plasma cholesterol measurement (mass/volume)Ordered By: Julio Nolasco on 02-20-2025 Cholesterol [Mass/Vol] 172 mg/dL <201 [facility] Comment on above: Cholesterol level, D esirable <200 mg/dLBorderline high cholesterol 200-239 mg/dLHigh cholesterol >=240 mg/dLRecommendations of the NCEP Adult Treatment Panel for the following risk-cutoff thresholds for the [place] population. Serum or plasma urea nitroge n measurement (mass/volume)Ordered By: Julio Nolasco on 02-20-2025 Urea nitrogen [Mass/Vol] 16 mg/dL 4-19 [facility] Sodium levelOrdered By: William Nolasco on 02-20-2025 Sodium [Moles/Vol] 138 mmol/L 133-145 [facility] TSH DL <= 0.005 mIU/L QnOrde red By: Julio Nolasco on 02-20-2025 TSH Qn 5.140 uIU/mL High 0.300-4.200 [facility] Total proteinOrdered By: Adolfo Nolasco on 02-20-2025 Protein [Mass/Vol] 7.8 g/dL 5.9-8.4 [facility] Triglycerides measurementOrd ered By: Julio Nolasco on 02-20-2025 Triglyceride [Mass/Vol] 300 mg/dL High <199 [facility] Comment on above: The drugs N-Acetylcy steine and Metamizole may falsely depress this assay. Normal range: <150 mg/dLBorderline High: 150-199 mg/dLHigh: 200-499 mg/dLVery High: >500 mg/dL White blood cell (WBC) count Ordered By: Julio Nolasco on 02-20-2025 WBC (Bld) [#/Vol] 10.7 10*3/uL 4.4-11.0 [facility] Anion gap in Serum or Plasma Ordered By: Julio Nolasco on 02-18-2025 Anion gap [Moles/Vol] 14 mmol/L 5-15 [facility] BUN/creatinine ratioOrdered By: Julio Nolasco on 02-18-2025 Urea nitrogen/Creatinine [Mass ratio] 13.2 mg/mg 10-20 [facility] Bilirubin, totalOrdered By: Julio Nolasco on 02-18-2025 Bilirubin [Mass/Vol] 0.30 mg/dL 0.00-1.30 [facility] Blood manual differential co mment interpretation (narrative result)Ordered By: Julio Nolasco on 02-18-2025 Manual differential comment Florencio (Bld) [Interp] SCANNED [facility] Comment on above: MARKED THROMBOCYTOSI S Calculated very low density lipoprotein (VLDL) cholesterol measurementOrdered By: Julio Nolasco on 02-18-2025 Calculated very low density lipoprotein (VLDL) cholesterol measurement 55 mg/dL High 5-40 [facility] Carbon dioxide, total [Moles /volume] in Central venous bloodOrdered By: Julio Nolasco on 02-18-2025 CO2 [Moles/Vol] 21.5 mmol/L 21.0-32.0 [facility] Chloride assayOrdered By: Antwon Nolasco on 02-18-2025 Chloride [Moles/Vol] 101 mmol/L 98-108 [facility] Erythrocyte distribution wid th ratioOrdered By: Julio Nolasco on 02-18-2025 Erythrocyte distribution width (RBC) [Ratio] 19.9 % High 11.6-14.6 [facility] Erythrocyte distribution wid th standard deviationOrdered By: Julio Nolasco on 02-18-2025 Erythrocyte distribution width (RBC) [Ratio] 56.9 fl High 35.1-43.9 [facility] Glomerular filtration rate ( GFR) estimation/1.73 sq m using serum, plasma, or whole bOrdered By: Julio Nolasco on 02-18-2025 GFR/1.73 sq M.predicted among non-blacks MDRD (S/P/Bld) [Vol rate/Area] 74 mL/min/{1.73_m2} >60 [facility] Comment on above: mL/min/1.73m2 CKD-EP I Creatinine Equation (2020) Hematocrit Auto (Bld) [Volum e fraction]Ordered By: Julio Nolasco on 02-18-2025 Hematocrit (Bld) [Volume fraction] 23.8 % Low 40-54 [facility] Hemoglobin A1c percentageOrd ered By: Julio Nolasco on 02-18-2025 HbA1c (Bld) [Mass fraction] 6.3 % High <5.7 [facility] Comment on above: Normal < 5.7 % Predi abetic 5.7 - 6.4 % Diabetic >or= 6.5 % Please note range changes. Hemoglobin measurementOrdere d By: Julio Nolasco on 02-18-2025 Hemoglobin (Bld) [Mass/Vol] 7.4 g/dL Low 13.0-16.5 [facility] LDL calc ser/plasOrdered By: Julio Nolasco on 02-18-2025 Cholesterol in LDL [Mass/Vol] 83 mg/dL [facility] Comment on above: Yyofdphcsh=268-172 m g/dL & Higher Gfiy=390 mg/dL or greater Laboratory - Chemistry and C hemistry - challengeOrdered By: Julio Nolasco on 02-18-2025 AST [Catalytic activity/Vol] 18 U/L <38 [facility] MCV (mean corpuscular volume ) determinationOrdered By: Julio Nolasco on 02-18-2025 MCV (RBC) [Entitic vol] 79.1 fL Low 80-94 [facility] Magnesium measurement (mass/ volume)Ordered By: Julio Nolasco on 02-18-2025 Magnesium (Unsp spec) [Mass/Vol] 2.0 mg/dL 1.5-2.2 [facility] Mean corpuscular hemoglobin (MCH) determinationOrdered By: Julio Nolasco on 02-18-2025 MCH (RBC) [Entitic mass] 24.6 pg Low 27.0-32.0 [facility] Mean corpuscular hemoglobin concentration (MCHC) determinationOrdered By: Julio Nolasco on 02-18-2025 MCHC (RBC) [Mass/Vol] 31.1 g/dL Low 32-36 [facility] Mean platelet volume determi nationOrdered By: Julio Nolasco on 02-18-2025 Platelet mean volume (Bld) [Entitic vol] 9.5 fL 6.2-12.0 [facility] Platelet countOrdered By: Antwon Nolasco on 02-18-2025 Platelets (Bld) [#/Vol] 874 10*3/uL High 150-450 [facility] Potassium measurement (mass/ volume)Ordered By: Julio Nolasco on 02-18-2025 Potassium (Unsp spec) [Mass/Vol] 4.3 mmol/L 3.3-5.1 [facility] RBC Auto (Bld) [#/Vol]Ordere d By: Julio Nolasco on 02-18-2025 RBC (Bld) [#/Vol] 3.01 10*6/uL Low 4.6-6.2 [facility] Review by pathologistOrdered By: Julio Nolasco on 02-18-2025 Pathologist review Florencio (Unsp spec) [Interp] Reviewed [facility] Comment on above: Previous reported re sult: Laina galeana Edited by: LEANNE on 02/28/25:1554SEE REPORT IN PATIENT'S EMR AMENDED REPORT 02/28/25 1554 PATH REV previously reported as: Laina galeana Screening total cholesterol/ high density lipoprotein (HDL) cholesterol ratioOrdered By: Julio Nolasco on 02-18-2025 Cholesterol.total/Chol esterol in HDL [Mass ratio] 9.57 {ratio} [facility] Serum creatinine measurement (mass/volume)Ordered By: Julio Nolasco on 02-18-2025 Creatinine [Mass/Vol] 1.19 mg/dL 0.70-1.20 [facility] Serum globulin measurementOr dered By: Julio Nolasco on 02-18-2025 Globulin (S) [Mass/Vol] 4.6 g/dL High 2.2-4.2 [facility] Serum glucose measurement (m ass/volume)Ordered By: Julio Nolasco on 02-18-2025 Glucose [Mass/Vol] 92 mg/dL 70-99 [facility] Serum or plasma alanine mora otransferase (ALT) measurementOrdered By: Julio Nolasco on 02-18-2025 ALT [Catalytic activity/Vol] 24 U/L <47 [facility] Serum or plasma albumin mervat urement (mass/volume)Ordered By: Julio Nolasco on 02-18-2025 Albumin [Mass/Vol] 3.0 g/dL Low 3.5-5.0 [facility] Serum or plasma albumin/glob ulin mass ratioOrdered By: Julio Nolasco on 02-18-2025 Albumin/Globulin [Mass ratio] 0.6 {ratio} Low 0.9-2.4 [facility] Serum or plasma alkaline cata sphatase measurementOrdered By: Julio Nolasco on 02-18-2025 ALP [Catalytic activity/Vol] 195 U/L High 40-129 [facility] Serum or plasma calcium mervat urement (mass/volume)Ordered By: Julio Nolasco on 02-18-2025 Calcium [Mass/Vol] 8.9 mg/dL 7.6-11.0 [facility] Serum or plasma cholesterol in HDL measurement (mass/volume)Ordered By: Julio Nolasco on 02-18-2025 Cholesterol in HDL [Mass/Vol] 16 mg/dL Low >40 [facility] Comment on above: National Cholesterol Education Program (NCEP) guidelines:<40 mg/dL: Low HDL-cholesterol (major risk factor for CHD)>= 60 mg/dL: High HDL-cholesterol (negative risk factor for CHD)HDL-cholesterol is affected by a number of factors, e.g. smoking, exercise, hormones, sex and age. Serum or plasma cholesterol measurement (mass/volume)Ordered By: Julio Nolasco on 02-18-2025 Cholesterol [Mass/Vol] 154 mg/dL <201 [facility] Comment on above: Cholesterol level, D esirable <200 mg/dLBorderline high cholesterol 200-239 mg/dLHigh cholesterol >=240 mg/dLRecommendations of the NCEP Adult Treatment Panel for the following risk-cutoff thresholds for the [place] population. Serum or plasma urea nitroge n measurement (mass/volume)Ordered By: Julio Nolasco on 02-18-2025 Urea nitrogen [Mass/Vol] 16 mg/dL 4-19 [facility] Sodium levelOrdered By: William Nolasco on 02-18-2025 Sodium [Moles/Vol] 136 mmol/L 133-145 [facility] TSH DL <= 0.005 mIU/L QnOrde red By: Julio Nolasco on 02-18-2025 TSH Qn 4.010 uIU/mL 0.300-4.200 [facility] Total proteinOrdered By: Adolfo Nolasco on 02-18-2025 Protein [Mass/Vol] 7.6 g/dL 5.9-8.4 [facility] Triglycerides measurementOrd ered By: Julio Nolasco on 02-18-2025 Triglyceride [Mass/Vol] 275 mg/dL High <199 [facility] Comment on above: The drugs N-Acetylcy steine and Metamizole may falsely depress this assay. Normal range: <150 mg/dLBorderline High: 150-199 mg/dLHigh: 200-499 mg/dLVery High: >500 mg/dL White blood cell (WBC) count Ordered By: Julio Nolasco on 02-18-2025 WBC (Bld) [#/Vol] 11.2 10*3/uL High 4.4-11.0 [facility] CBC panel Auto (Bld)on 02-17 Erythrocyte distribution width (RBC) [Ratio] 19.9 % High 11.5-14.5 [facility] Comment on above: Performed By: #### 5 8410-2 ####BHANU Treviño ([id number])[facility] ([facility])[id number] [place] [address] Hematocrit (Bld) [Volume fraction] 23.6 % Low 41.0-52.0 [facility] Comment on above: Performed By: #### 5 8410-2 ####BHANU Treviño ([id number])[facility] ([facility])[id number] [place] [address] Hemoglobin (Bld) [Mass/Vol] 7.4 g/dL Low 13.5-17.5 [facility] Comment on above: Performed By: #### 5 8410-2 ####BHANU Treviño ([id number])[facility] [facility])[address] [place] [address] 94490 MCH (RBC) [Entitic mass] 24.7 pg Low 26.0-34.0 [facility] Comment on above: Performed By: #### 5 8410-2 ####BHANU Treviño ([id number])[facility] ([facility])[id number] [place] [address] 88160 MCHC (RBC) [Mass/Vol] 31.4 g/dL Low 32.0-36.0 [facility] Comment on above: Performed By: #### 5 8410-2 ####BHANU Treviño ([id number])[facility] ([facility])[id number] [place] [address] 93643 MCV (RBC) [Entitic vol] 79 fL Low 80-100 [facility] Comment on above: Performed By: #### 5 8410-2 ####BHANU Treviño ([id number])[facility] ([facility])[address] [place] [address] 46192 Nucleated RBC/100 WBC (Bld) [Ratio] 0.0 /100 WBCs Normal 0.0-0.0 [facility] Comment on above: Performed By: #### 5 8410-2 ####BHANU Treviño ([id number])[facility] ([facility])[address] [place] [address] Platelets (Bld) [#/Vol] 819 x10*3/uL High 150-450 [facility] Comment on above: Performed By: #### 5 8410-2 ####BHANU Treviño ([id number])[facility] ([facility])[address] [place] [address] RBC (Bld) [#/Vol] 2.99 x10*6/uL Low 4.50-5.90 [facility] Comment on above: Performed By: #### 5 8410-2 ####BHANU Treviño ([id number])[facility] ([facility])[id number] [place] [address] 46014 WBC (Bld) [#/Vol] 12.6 x10*3/uL High 4.4-11.3 [facility] Comment on above: Performed By: #### 5 8410-2 ####BHANU Treviño ([id number])[facility] ([facility])[address]690 [place] [address] Comprehensive metabolic 2000 panelon 02-17-2025 Albumin BCP dye [Mass/Vol] 2.8 g/dL Low 3.4-5.0 [facility] Comment on above: Performed By: #### 2 4323-8 ####BHANU Treviño ([id number])[facility] ([facility])[address]27 [place] [address] ALP [Catalytic activity/Vol] 173 U/L High 33-120 [facility] Comment on above: Performed By: #### 2 4323-8 ####BHANU GREGORY L ([id number])[facility] ([facility])[address]94 [place] [address] ALT With P-5'-P [Catalytic activity/Vol] 26 U/L Normal 10-52 [facility] Comment on above: Result Comment: Sydni ents treated with Sulfasalazine may generate falsely decreased results for ALT. Performed By: #### 2 4323-8 ####BHANU Treviño ([id number])[facility] ([facility])[address]487 [place] [address] Anion gap [Moles/Vol] 15 mmol/L Normal 10-20 [facility] Comment on above: Performed By: #### 2 4323-8 ####BHANU Treviño ([id number])[facility] ([facility])[address]50 [place] [address] AST With P-5'-P [Catalytic activity/Vol] 14 U/L Normal 9-39 [facility] Comment on above: Performed By: #### 2 4323-8 ####BHANU Treviño ([id number])[facility] ([facility])[id number] [place] [address] 83884 Bilirubin [Mass/Vol] 0.3 mg/dL Normal 0.0-1.2 [facility] Comment on above: Performed By: #### 2 4323-8 ####BHANU Treviño ([id number])[facility] ([facility])[address]91 [place] [address] Calcium [Mass/Vol] 8.4 mg/dL Low 8.6-10.6 [facility] Comment on above: Performed By: #### 2 4323-8 ####BHANU Treviño ([id number])[facility] ([facility])[address]145 [place] [address] Chloride [Moles/Vol] 101 mmol/L Normal 98-107 [facility] Comment on above: Performed By: #### 2 4323-8 ####BHANU GREGORY L ([id number])[facility] ([facility])[address] [place] [address] CO2 [Moles/Vol] 27 mmol/L Normal 21-32 [facility] Comment on above: Performed By: #### 2 4323-8 ####BHANU GREGORY L ([id number])[facility] ([facility])[address] [place] [address] 18882 Creatinine [Mass/Vol] 1.23 mg/dL Normal 0.50-1.30 [facility] Comment on above: Performed By: #### 2 4323-8 ####BHANU Treviño ([id number])[facility] ([facility])[address]27 [place] [address] Glomerular filtration rate/1.73 sq M.predicted 71 mL/min/1.73m*2 Normal >60 [facility] Comment on above: Result Comment: Calc ulations of estimated GFR are performed using the 2020 CKD-EPI Study Refit equation without the race variable for the IDMS-Traceable creatinine methods.https://jasn.asnjournals.org/content///A .3730216824 Performed By: #### 2 4323-8 ####BHANU Treviño (06937)[facility] ([facility])[address]157 [place] [address] Glucose [Mass/Vol] 88 mg/dL Normal 74-99 [facility] Comment on above: Performed By: #### 2 4323-8 ####BHANU Treviño ([id number])[facility] ([facility])[address]19 [place] [address] Potassium [Moles/Vol] 5.1 mmol/L Normal 3.5-5.3 [facility] Comment on above: Performed By: #### 2 4323-8 ####BHANU Treviño ([id number])[facility] ([facility])33579 [place] [address] Protein [Mass/Vol] 6.7 g/dL Normal 6.4-8.2 [facility] Comment on above: Performed By: #### 2 4323-8 ####BHANU Treviño ([id number])[facility] ([facility])55842 [place] [address] Sodium [Moles/Vol] 138 mmol/L Normal 136-145 [facility] Comment on above: Performed By: #### 2 4323-8 ####BHANU Treviño ([id number])[facility] ([facility])67884 [place] [address] Urea nitrogen [Mass/Vol] 16 mg/dL Normal - [facility] Comment on above: Performed By: #### 2 4323-8 ####BHANU Treviño ([id number])[facility] ([facility])[address]371 [place] [address] Magnesiumon 02-17-2025 Magnesium [Mass/Vol] 2.01 mg/dL Normal 1.60-2.40 [facility] Comment on above: Performed By: #### 1 9123-9 ####BHANU Treviño ([id number])[facility] ([facility])[id number] [place] [address] 39610 CBC panel Auto (Bld)on 02-16 Erythrocyte distribution width (RBC) [Ratio] 19.7 % High 11.5-14.5 [facility] Comment on above: Performed By: #### 5 8410-2 ####BHANU Treviño ([id number])[facility] ([facility])[address] [place] [address] 81392 Hematocrit (Bld) [Volume fraction] 22.1 % Low 41.0-52.0 [facility] Comment on above: Performed By: #### 5 8410-2 ####BHANU Treviño ([id number])[facility] ([facility])[id number] [place] [address] 83525 Hemoglobin (Bld) [Mass/Vol] 7.1 g/dL Low 13.5-17.5 [facility] Comment on above: Performed By: #### 5 8410-2 ####BHANU Treviño ([id number])[facility] ([facility])[address] [place] [address] 94355 MCH (RBC) [Entitic mass] 24.8 pg Low 26.0-34.0 [facility] Comment on above: Performed By: #### 5 8410-2 ####BHANU Treviño ([id number])[facility] ([facility])[address]122 [place] [address] MCHC (RBC) [Mass/Vol] 32.1 g/dL Normal 32.0-36.0 [facility] Comment on above: Performed By: #### 5 8410-2 ####BHANU Treviño ([id number])[facility] ([facility])[address]36 [place] [address] MCV (RBC) [Entitic vol] 77 fL Low 80-100 [facility] Comment on above: Performed By: #### 5 8410-2 ####BHANU Treviño ([id number])[facility] ([facility])[address]85 [place] [address] Nucleated RBC/100 WBC (Bld) [Ratio] 0.0 /100 WBCs Normal 0.0-0.0 [facility] Comment on above: Performed By: #### 5 8410-2 ####BHANU Treviño ([id number])[facility] ([facility])[address]57 [place] [address] Platelets (Bld) [#/Vol] 758 x10*3/uL High 150-450 [facility] Comment on above: Performed By: #### 5 8410-2 ####BHANU Treviño ([id number])[facility] ([facility])[address]250 [place] [address] RBC (Bld) [#/Vol] 2.86 x10*6/uL Low 4.50-5.90 [facility] Comment on above: Performed By: #### 5 8410-2 ####BHANU Treviño ([id number])[facility] ([facility])[address]449 [place] [address] WBC (Bld) [#/Vol] 14.1 x10*3/uL High 4.4-11.3 [facility] Comment on above: Performed By: #### 5 8410-2 ####BHANU Treviño ([id number])[facility] ([facility])[address]382 [place] [address] Comprehensive metabolic 2000 panelon 02-16-2025 Albumin BCP dye [Mass/Vol] 2.9 g/dL Low 3.4-5.0 [facility] Comment on above: Performed By: #### 2 4323-8 ####BHANU Treviño ([id number])[facility] ([facility])[address]225 [place] [address] ALP [Catalytic activity/Vol] 157 U/L High 33-120 [facility] Comment on above: Performed By: #### 2 4323-8 ####BHANU Treviño ([id number])[facility] ([facility])[address]12 [place] [address] ALT With P-5'-P [Catalytic activity/Vol] 30 U/L Normal 10-52 [facility] Comment on above: Result Comment: Sydni ents treated with Sulfasalazine may generate falsely decreased results for ALT. Performed By: #### 2 4323-8 ####BHANU Treviño (24090)[facility] ([facility])[address]90 [place] [address] Anion gap [Moles/Vol] 13 mmol/L Normal 10-20 [facility] Comment on above: Performed By: #### 2 4323-8 ####BHANU Treviño ([id number])[facility] ([facility])[address]83 [place] [address] AST With P-5'-P [Catalytic activity/Vol] 16 U/L Normal 9-39 [facility] Comment on above: Performed By: #### 2 4323-8 ####BHANU Treviño ([id number])[facility] ([facility])[address]600 [place] [address] Bilirubin [Mass/Vol] 0.3 mg/dL Normal 0.0-1.2 [facility] Comment on above: Performed By: #### 2 4323-8 ####BHANU Treviño ([id number])[facility] ([facility])[address]02 [place] [address] Calcium [Mass/Vol] 8.8 mg/dL Normal 8.6-10.6 [facility] Comment on above: Performed By: #### 2 4323-8 ####BHANU GREGORY L (80614)[facility] ([facility])[address]62 [place] [address] Chloride [Moles/Vol] 100 mmol/L Normal 98-107 [facility] Comment on above: Performed By: #### 2 4323-8 ####BHANU FLEMINGMOTZER L (58064)[facility] ([facility])27882 [place] [address] CO2 [Moles/Vol] 28 mmol/L Normal 21-32 [facility] Comment on above: Performed By: #### 2 4323-8 ####BHANU GREGORY L ([id number])[facility] ([facility])96363 [place] [address] Creatinine [Mass/Vol] 1.18 mg/dL Normal 0.50-1.30 [facility] Comment on above: Performed By: #### 2 4323-8 ####BHANU LAUREANOTZER L (45908)[facility] ([facility])[address]79 [place] [address] Glomerular filtration rate/1.73 sq M.predicted 75 mL/min/1.73m*2 Normal >60 [facility] Comment on above: Result Comment: Calc ulations of estimated GFR are performed using the 2020 CKD-EPI Study Refit equation without the race variable for the IDMS-Traceable creatinine methods.https://jasn.asnjournals.org/content//A SN.5195878246 Performed By: #### 2 4323-8 ####BHANU LAUREANOTZALANNA L (76591)[facility] ([facility])[address]226 [place] [address] Glucose [Mass/Vol] 91 mg/dL Normal 74-99 [facility] Comment on above: Performed By: #### 2 4323-8 ####BHANU Treviño ([id number])[facility] ([facility])[address]21 [place] [address] Potassium [Moles/Vol] 4.3 mmol/L Normal 3.5-5.3 [facility] Comment on above: Performed By: #### 2 4323-8 ####BHANU Treviño ([id number])[facility] ([facility])25321 [place] [address] Protein [Mass/Vol] 7.3 g/dL Normal 6.4-8.2 [facility] Comment on above: Performed By: #### 2 4323-8 ####BHANU Treviño (10268)[facility] ([facility])23465 [place] [address] Sodium [Moles/Vol] 137 mmol/L Normal 136-145 [facility] Comment on above: Performed By: #### 2 4323-8 ####BHANU Treviño ([id number])[facility] ([facility])03675 [place] [address] Urea nitrogen [Mass/Vol] 17 mg/dL Normal 6-23 [facility] Comment on above: Performed By: #### 2 4323-8 ####BHANU Treviño (06996)[facility] ([facility])[address]43 [place] [address] Magnesiumon 02-16-2025 Magnesium [Mass/Vol] 1.98 mg/dL Normal 1.60-2.40 [facility] Comment on above: Performed By: #### 1 9123-9 ####BHANU Treviño (69405)[facility] ([facility])40848 [place] [address] CBC panel Auto (Bld)on 02-15 Erythrocyte distribution width (RBC) [Ratio] 20.0 % High 11.5-14.5 [facility] Comment on above: Performed By: #### 5 8410-2 ####BHANU Treviño ([id number])[facility] ([facility])[id number] [place] [address] 58049 Hematocrit (Bld) [Volume fraction] 23.6 % Low 41.0-52.0 [facility] Comment on above: Performed By: #### 5 8410-2 ####BHANU Treviño ([id number])[facility] ([facility])[address] [place] [address] 31274 Hemoglobin (Bld) [Mass/Vol] 7.5 g/dL Low 13.5-17.5 [facility] Comment on above: Performed By: #### 5 8410-2 ####BHANU Treviño (29642)[facility] ([facility])[address] [place] [address] 32494 MCH (RBC) [Entitic mass] 24.4 pg Low 26.0-34.0 [facility] Comment on above: Performed By: #### 5 8410-2 ####BHANU Treviño ([id number])[facility] ([facility])[address] [place] [address] 27198 MCHC (RBC) [Mass/Vol] 31.8 g/dL Low 32.0-36.0 [facility] Comment on above: Performed By: #### 5 8410-2 ####BHANU Treviño ([id number])[facility] ([facility])[address] [place] [address] 61428 MCV (RBC) [Entitic vol] 77 fL Low 80-100 [facility] Comment on above: Performed By: #### 5 8410-2 ####BHANU Treviño (06137)[facility] ([facility])[address] [place] [address] 26152 Nucleated RBC/100 WBC (Bld) [Ratio] 0.0 /100 WBCs Normal 0.0-0.0 [facility] Comment on above: Performed By: #### 5 8410-2 ####HBANU Treviño ([id number])[facility] ([facility])33093 [place] [address] Platelets (Bld) [#/Vol] 673 x10*3/uL High 150-450 [facility] Comment on above: Performed By: #### 5 8410-2 ####BHANU Treviño (74901)[facility] ([facility])49316 [place] [address] RBC (Bld) [#/Vol] 3.07 x10*6/uL Low 4.50-5.90 [facility] Comment on above: Performed By: #### 5 8410-2 ####BHANU Treviño ([id number])[facility] ([facility])40304 [place] [address] WBC (Bld) [#/Vol] 20.2 x10*3/uL High 4.4-11.3 [facility] Comment on above: Performed By: #### 5 8410-2 ####BHANU Treviño ([id number])[facility] ([facility])83106 [place] [address] Comprehensive metabolic 2000 panelon 02-15-2025 Albumin BCP dye [Mass/Vol] 2.6 g/dL Low 3.4-5.0 [facility] Comment on above: Performed By: #### 2 4323-8 ####BHANU Treviño ([id number])[facility] ([facility])[address]376 [place] [address] ALP [Catalytic activity/Vol] 160 U/L High 33-120 [facility] Comment on above: Performed By: #### 2 4323-8 ####BHANU Treviño ([id number])[facility] ([facility])[address]88 [place] [address] ALT With P-5'-P [Catalytic activity/Vol] 36 U/L Normal 10-52 [facility] Comment on above: Result Comment: Sydni ents treated with Sulfasalazine may generate falsely decreased results for ALT. Performed By: #### 2 4323-8 ####BHANU Treviño ([id number])[facility] ([facility])[address]254 [place] [address] Anion gap [Moles/Vol] 15 mmol/L Normal 10-20 [facility] Comment on above: Performed By: #### 2 4323-8 ####BHANU Treviño ([id number])[facility] ([facility])[address]40 [place] [address] AST With P-5'-P [Catalytic activity/Vol] 23 U/L Normal 9-39 [facility] Comment on above: Performed By: #### 2 4323-8 ####BHANU Treviño ([id number])[facility] ([facility])[address]898 [place] [address] Bilirubin [Mass/Vol] 0.4 mg/dL Normal 0.0-1.2 [facility] Comment on above: Performed By: #### 2 4323-8 ####BHANU Treviño (44649)[facility] ([facility])25023 [place] [address] Calcium [Mass/Vol] 8.3 mg/dL Low 8.6-10.6 [facility] Comment on above: Performed By: #### 2 4323-8 ####BHANU Treviño (91569)[facility] ([facility])35850 [place] [address] Chloride [Moles/Vol] 100 mmol/L Normal 98-107 [facility] Comment on above: Performed By: #### 2 4323-8 ####BHANU GREGORY L (85157)[facility] ([facility])[address]18 [place] [address] CO2 [Moles/Vol] 27 mmol/L Normal 21-32 [facility] Comment on above: Performed By: #### 2 4323-8 ####BHANU Treviño ([id number])[facility] ([facility])[address]299 [place] [address] Creatinine [Mass/Vol] 1.12 mg/dL Normal 0.50-1.30 [facility] Comment on above: Performed By: #### 2 4323-8 ####BHANU Treviño ([id number])[facility] ([facility])[address]95 [place] [address] Glomerular filtration rate/1.73 sq M.predicted 80 mL/min/1.73m*2 Normal >60 [facility] Comment on above: Result Comment: Calc ulations of estimated GFR are performed using the 2020 CKD-EPI Study Refit equation without the race variable for the IDMS-Traceable creatinine methods.https://jasn.asnjournals.org/content/early//A SN.2463047213 Performed By: #### 2 4323-8 ####BHANU Treviño ([id number])[facility] ([facility])[address]49 [place] [address] Glucose [Mass/Vol] 102 mg/dL High 74-99 [facility] Comment on above: Performed By: #### 2 4323-8 ####BHANU GREGORY L (86043)[facility] ([facility])[address]69 [place] [address] Potassium [Moles/Vol] 5.1 mmol/L Normal 3.5-5.3 [facility] Comment on above: Performed By: #### 2 4323-8 ####BHANU GREGORY L (73668)[facility] ([facility])20766 [place] [address] Protein [Mass/Vol] 6.5 g/dL Normal 6.4-8.2 [facility] Comment on above: Performed By: #### 2 4323-8 ####BHANU GREGORY L (60556)[facility] ([facility])[address]82 [place] [address] Sodium [Moles/Vol] 137 mmol/L Normal 136-145 [facility] Comment on above: Performed By: #### 2 4323-8 ####BHANU Treviño (50497)[facility] ([facility])[address]160 [place] [address] Urea nitrogen [Mass/Vol] 16 mg/dL Normal 6-23 [facility] Comment on above: Performed By: #### 2 4323-8 ####BHANU Treviño ([id number])[facility] ([facility])[address]63 [place] [address] Magnesiumon 02-15-2025 Magnesium [Mass/Vol] 1.81 mg/dL Normal 1.60-2.40 [facility] Comment on above: Performed By: #### 1 9123-9 ####BHANU Treviño ([id number])[facility] ([facility])[address]39 [place] [address] Basic metabolic 2000 panelon 02-13-2025 Anion gap [Moles/Vol] 16 mmol/L Normal 10-20 [facility] Comment on above: Performed By: #### 2 4321-2 ####BHANU Treviño ([id number])[facility] ([facility])[address] [place] [address] Calcium [Mass/Vol] 8.4 mg/dL Low 8.6-10.6 [facility] Comment on above: Performed By: #### 2 4321-2 ####BHANU Treviño ([id number])[facility] ([facility])[address] [place] [address] Chloride [Moles/Vol] 103 mmol/L Normal 98-107 [facility] Comment on above: Performed By: #### 2 4321-2 ####BHANU Treviño ([id number])[facility] ([facility])[address] [place] [address] CO2 [Moles/Vol] 28 mmol/L Normal 21-32 [facility] Comment on above: Performed By: #### 2 4321-2 ####BHANU Treviño ([id number])[facility] ([facility])[address] [place] [address] Creatinine [Mass/Vol] 1.22 mg/dL Normal 0.50-1.30 [facility] Comment on above: Performed By: #### 2 4321-2 ####BHANU Treviño ([id number])[facility] ([facility])[id number] [place] [id number] Glomerular filtration rate/1.73 sq M.predicted 72 mL/min/1.73m*2 Normal >60 [facility] Comment on above: Result Comment: Calc ulations of estimated GFR are performed using the 2020 CKD-EPI Study Refit equation without the race variable for the IDMS-Traceable creatinine methods.https://jasn.asnjournals.org/content//[email or web address] [email or web address] Performed By: #### 2 4321-2 ####BHANU Treviño ([id number])[facility] ([facility])[id number] [place] [address] 70914 Glucose [Mass/Vol] 115 mg/dL High 74-99 [facility] Comment on above: Performed By: #### 2 4321-2 ####BHANU GREGORY L ([id number])[facility] ([facility])[id number] [place] [address] 30606 Potassium [Moles/Vol] 4.9 mmol/L Normal 3.5-5.3 [facility] Comment on above: Performed By: #### 2 4321-2 ####BHANU GREGORY L ([id number])[facility] ([facility])[id number] [place] [address] 52653 Sodium [Moles/Vol] 142 mmol/L Normal 136-145 [facility] Comment on above: Performed By: #### 2 4321-2 ####BHANU GREGORY L ([id number])[facility] ([facility])[id number] [place] [address] 12988 Urea nitrogen [Mass/Vol] 16 mg/dL Normal 6-23 [facility] Comment on above: Performed By: #### 2 4321-2 ####BHANU Treviño ([id number])[facility] ([facility])[address] [place] [address] Blood type and Indirect anti body screen panel (Bld)on 02-13-2025 ABO group Nom (Bld) A Normal [facility] Comment on above: Performed By: #### 3 4532-2 ####BHANU Treviño ([id number])[facility] ([facility])[id number] [place] [address] 50603 Blood group antibody screen Ql Negative [facility] Comment on above: Performed By: #### 3 4532-2 ####BHANU Treviño ([id number])[facility] ([facility])[address] [place] [address] 53291 D Ag Ql (Bld) Positive [facility] Comment on above: Performed By: #### 3 4532-2 ####BHANU Treviño ([id number])[facility] ([facility])[address] [address], [place] [address] CBC panel Auto (Bld)on 02-13 Erythrocyte distribution width (RBC) [Ratio] 20.1 % High 11.5-14.5 [facility] Comment on above: Performed By: #### 5 8410-2 ####BHANU Treviño ([id number])[facility] ([facility])[address] [place] [address] 12582 Hematocrit (Bld) [Volume fraction] 23.1 % Low 41.0-52.0 [facility] Comment on above: Performed By: #### 5 8410-2 ####BHANU Treviño ([id number])[facility] ([facility])[id number] [place] [address] 25675 Hemoglobin (Bld) [Mass/Vol] 7.4 g/dL Low 13.5-17.5 [facility] Comment on above: Performed By: #### 5 8410-2 ####BHANU Treviño ([id number])[facility] ([facility])[id number] [place] [address] 73578 MCH (RBC) [Entitic mass] 24.5 pg Low 26.0-34.0 [facility] Comment on above: Performed By: #### 5 8410-2 ####BHANU Treviño ([id number])[facility] ([facility])[address]13 [place] [address] MCHC (RBC) [Mass/Vol] 32.0 g/dL Normal 32.0-36.0 [facility] Comment on above: Performed By: #### 5 8410-2 ####BHANU Treviño ([id number])[facility] ([facility])[address]126 [place] [address] MCV (RBC) [Entitic vol] 77 fL Low 80-100 [facility] Comment on above: Performed By: #### 5 8410-2 ####BHANU Treviño ([id number])[facility] ([facility])[address]360 [place] [address] Nucleated RBC/100 WBC (Bld) [Ratio] 0.0 /100 WBCs Normal 0.0-0.0 [facility] Comment on above: Performed By: #### 5 8410-2 ####BHANU Treviño ([id number])[facility] ([facility])[address]73 [place] [address] Platelets (Bld) [#/Vol] 664 x10*3/uL High 150-450 [facility] Comment on above: Performed By: #### 5 8410-2 ####BHANU Treviño ([id number])[facility] ([facility])[address]355 [place] [address] RBC (Bld) [#/Vol] 3.02 x10*6/uL Low 4.50-5.90 [facility] Comment on above: Performed By: #### 5 8410-2 ####BHANU Treviño ([id number])[facility] ([facility])65606 [place] [address] WBC (Bld) [#/Vol] 9.9 x10*3/uL Normal 4.4-11.3 [facility] Comment on above: Performed By: #### 5 8410-2 ####BHANU Treviño ([id number])[facility] ([facility])[address] [place] [address] 49489 Magnesiumon 02-13-2025 Magnesium [Mass/Vol] 1.92 mg/dL Normal 1.60-2.40 [facility] Comment on above: Performed By: #### 1 9123-9 ####BHANU Treviño ([id number])[facility] ([facility])[address] [place] [address] 01757 PT and aPTT panel Coag (PPP) on 02-13-2025 aPTT Coag (PPP) [Time] 31 s Normal 26-36 [facility] Comment on above: Order Comment: The A PTT is no longer used for monitoring Unfractionated Heparin Therapy. For monitoring Heparin Therapy, use the Heparin Assay. Performed By: #### 3 4529-8 ####BHANU Treviño ([id number])[facility] ([facility])[address] [place] [address] 89764 INR Coag (PPP) [Relative time] 1.2 High 0.9-1.1 [facility] Comment on above: Order Comment: The A PTT is no longer used for monitoring Unfractionated Heparin Therapy. For monitoring Heparin Therapy, use the Heparin Assay. Performed By: #### 3 4529-8 ####BHANU Treviño ([id number])[facility] ([facility])[address]2013 [place] [address] PT Coag (PPP) [Time] 12.9 s High 9.8-12.4 [facility] Comment on above: Order Comment: The A PTT is no longer used for monitoring Unfractionated Heparin Therapy. For monitoring Heparin Therapy, use the Heparin Assay. Performed By: #### 3 4529-8 ####BHANU Treviño ([id number])[facility] ([facility])[address]25 [place] [address] CBC panel Auto (Bld)on 02-12 Erythrocyte distribution width (RBC) [Ratio] 19.8 % High 11.5-14.5 [facility] Comment on above: Performed By: #### 5 8410-2 ####BHANU Treviño ([id number])[facility] ([facility])[address]15 [place] [address] Hematocrit (Bld) [Volume fraction] 22.9 % Low 41.0-52.0 [facility] Comment on above: Performed By: #### 5 8410-2 ####BHANU Treviño ([id number])[facility] ([facility])[address]35 [place] [address] Hemoglobin (Bld) [Mass/Vol] 7.4 g/dL Low 13.5-17.5 [facility] Comment on above: Performed By: #### 5 8410-2 ####BHANU Treviño ([id number])[facility] ([facility])37682 [place] [address] MCH (RBC) [Entitic mass] 24.6 pg Low 26.0-34.0 [facility] Comment on above: Performed By: #### 5 8410-2 ####BHANU Treviño ([id number])[facility] ([facility])[address]22 [place] [address] MCHC (RBC) [Mass/Vol] 32.3 g/dL Normal 32.0-36.0 [facility] Comment on above: Performed By: #### 5 8410-2 ####BHANU Treviño ([id number])[facility] ([facility])15778 [place] [address] MCV (RBC) [Entitic vol] 76 fL Low 80-100 [facility] Comment on above: Performed By: #### 5 8410-2 ####BHANU Treviño ([id number])[facility] ([facility])[id number] [place] [address] 48580 Nucleated RBC/100 WBC (Bld) [Ratio] 0.0 /100 WBCs Normal 0.0-0.0 [facility] Comment on above: Performed By: #### 5 8410-2 ####BHANU Treviño ([id number])[facility] ([facility])[address]193 [place] [address] Platelets (Bld) [#/Vol] 664 x10*3/uL High 150-450 [facility] Comment on above: Performed By: #### 5 8410-2 ####BHANU Treviño ([id number])[facility] ([facility])[address] [place] [address] 33864 RBC (Bld) [#/Vol] 3.01 x10*6/uL Low 4.50-5.90 [facility] Comment on above: Performed By: #### 5 8410-2 ####BHANU Treviño ([id number])[facility] ([facility])[address]39 [place] [address] WBC (Bld) [#/Vol] 9.2 x10*3/uL Normal 4.4-11.3 [facility] Comment on above: Performed By: #### 5 8410-2 ####BHANU Treviño ([id number])[facility] ([facility])[address]481 [place] [address] Comprehensive metabolic 2000 panelon 02-12-2025 Albumin BCP dye [Mass/Vol] 2.6 g/dL Low 3.4-5.0 [facility] Comment on above: Performed By: #### 2 4323-8 ####BHANU Treviño ([id number])[facility] ([facility])[address]885 [place] [address] ALP [Catalytic activity/Vol] 107 U/L Normal 33-120 [facility] Comment on above: Performed By: #### 2 4323-8 ####BHANU Treviño ([id number])[facility] ([facility])[address]80 [place] [address] ALT With P-5'-P [Catalytic activity/Vol] 15 U/L Normal 10-52 [facility] Comment on above: Result Comment: Sydni ents treated with Sulfasalazine may generate falsely decreased results for ALT. Performed By: #### 2 4323-8 ####BHANU Treviño ([id number])[facility] ([facility])87504 [place] [address] Anion gap [Moles/Vol] 14 mmol/L Normal 10-20 [facility] Comment on above: Performed By: #### 2 4323-8 ####BHANU Treviño ([id number])[facility] ([facility])61567 [place] [address] AST With P-5'-P [Catalytic activity/Vol] 14 U/L Normal 9-39 [facility] Comment on above: Performed By: #### 2 4323-8 ####BHANU Treviño ([id number])[facility] ([facility])64563 [place] [address] Bilirubin [Mass/Vol] 0.3 mg/dL Normal 0.0-1.2 [facility] Comment on above: Performed By: #### 2 4323-8 ####BHANU Treviño ([id number])[facility] ([facility])[address]16 [place] [address] Calcium [Mass/Vol] 8.4 mg/dL Low 8.6-10.6 [facility] Comment on above: Performed By: #### 2 4323-8 ####BHANU Treviño ([id number])[facility] ([facility])[address]14 [place] [address] Chloride [Moles/Vol] 101 mmol/L Normal 98-107 [facility] Comment on above: Performed By: #### 2 4323-8 ####BHANU Treviño ([id number])[facility] ([facility])[address]05 [place] [address] CO2 [Moles/Vol] 28 mmol/L Normal 21-32 [facility] Comment on above: Performed By: #### 2 4323-8 ####BHANU Treviño ([id number])[facility] ([facility])32464 [place] [address] Creatinine [Mass/Vol] 1.08 mg/dL Normal 0.50-1.30 [facility] Comment on above: Performed By: #### 2 4323-8 ####BHANU Treviño ([id number])[facility] ([facility])02983 [place] [address] Glomerular filtration rate/1.73 sq M.predicted 83 mL/min/1.73m*2 Normal >60 [facility] Comment on above: Result Comment: Calc ulations of estimated GFR are performed using the 2020 CKD-EPI Study Refit equation without the race variable for the IDMS-Traceable creatinine methods.https://jasn.asnjournals.org/content//A SN.8870066956 Performed By: #### 2 4323-8 ####BHANU Treviño ([id number])[facility] ([facility])[address]111 [place] [address] Glucose [Mass/Vol] 114 mg/dL High 74-99 [facility] Comment on above: Performed By: #### 2 4323-8 ####BHANU GREGORY L ([id number])[facility] ([facility])[address]35 [place] [address] Potassium [Moles/Vol] 5.2 mmol/L Normal 3.5-5.3 [facility] Comment on above: Performed By: #### 2 4323-8 ####BHANU GREGORY L ([id number])[facility] ([facility])62060 [place] [address] Protein [Mass/Vol] 7.1 g/dL Normal 6.4-8.2 [facility] Comment on above: Performed By: #### 2 4323-8 ####BHANU GREGORY L ([id number])[facility] ([facility])85426 [place] [address] Sodium [Moles/Vol] 138 mmol/L Normal 136-145 [facility] Comment on above: Performed By: #### 2 4323-8 ####BHANU Treviño ([id number])[facility] ([facility])33846 [place] [address] Urea nitrogen [Mass/Vol] 14 mg/dL Normal 6-23 [facility] Comment on above: Performed By: #### 2 4323-8 ####BHANU Treviño ([id number])[facility] ([facility])55994 [place] [address] Magnesiumon 02-12-2025 Magnesium [Mass/Vol] 2.03 mg/dL Normal 1.60-2.40 [facility] Comment on above: Performed By: #### 1 9123-9 ####BHANU Treviño ([id number])[facility] ([facility])[address]164 [place] [address] Basic metabolic 2000 panelon 02-11-2025 Anion gap [Moles/Vol] 14 mmol/L Normal 10-20 [facility] Comment on above: Performed By: #### 2 4321-2 ####BHANU Treviño ([id number])[facility] ([facility])17735 [place] [address] Calcium [Mass/Vol] 9.1 mg/dL Normal 8.6-10.6 [facility] Comment on above: Performed By: #### 2 4321-2 ####BHANU Treviño ([id number])[facility] ([facility])42400 [place] [address] Chloride [Moles/Vol] 100 mmol/L Normal 98-107 [facility] Comment on above: Performed By: #### 2 4321-2 ####BHANU Treviño ([id number])[facility] ([facility])39490 [place] [address] CO2 [Moles/Vol] 29 mmol/L Normal 21-32 [facility] Comment on above: Performed By: #### 2 4321-2 ####BHANU Treviño ([id number])[facility] ([facility])52067 [place] [address] Creatinine [Mass/Vol] 1.13 mg/dL Normal 0.50-1.30 [facility] Comment on above: Performed By: #### 2 4321-2 ####BHANU GREGORY L ([id number])[facility] ([facility])45228 [place] [address] Glomerular filtration rate/1.73 sq M.predicted 79 mL/min/1.73m*2 Normal >60 [facility] Comment on above: Result Comment: Calc ulations of estimated GFR are performed using the 2020 CKD-EPI Study Refit equation without the race variable for the IDMS-Traceable creatinine methods.https://jasn.asnjournals.org/content//A .4164318563 Performed By: #### 2 4321-2 ####BHANU GREGORY L ([id number])[facility] ([facility])57479 [place] [address] Glucose [Mass/Vol] 108 mg/dL High 74-99 [facility] Comment on above: Performed By: #### 2 4321-2 ####BHANU GREGORY L ([id number])[facility] ([facility])40290 [place] [address] Potassium [Moles/Vol] 4.6 mmol/L Normal 3.5-5.3 [facility] Comment on above: Performed By: #### 2 4321-2 ####BHANU GREGORY L ([id number])[facility] ([facility])68301 [place] [address] Sodium [Moles/Vol] 138 mmol/L Normal 136-145 [facility] Comment on above: Performed By: #### 2 4321-2 ####BHANU GREGORY L ([id number])[facility] ([facility])03939 [place] [address] Urea nitrogen [Mass/Vol] 16 mg/dL Normal 6-23 [facility] Comment on above: Performed By: #### 2 4321-2 ####BHANU Treviño ([id number])[facility] ([facility])01263 [place] [address] CBC panel Auto (Bld)on 02-11 Erythrocyte distribution width (RBC) [Ratio] 20.0 % High 11.5-14.5 [facility] Comment on above: Performed By: #### 5 8410-2 ####BHANU Treviño (76689)[facility] ([facility])[id number] [place] [address] 29388 Hematocrit (Bld) [Volume fraction] 24.7 % Low 41.0-52.0 [facility] Comment on above: Performed By: #### 5 8410-2 ####BHANU Treviño ([id number])[facility] ([facility])[id number] [place] [address] 69956 Hemoglobin (Bld) [Mass/Vol] 8.1 g/dL Low 13.5-17.5 [facility] Comment on above: Performed By: #### 5 8410-2 ####BHANU Treviño ([id number])[facility] ([facility])[id number] [place] [address] 95350 MCH (RBC) [Entitic mass] 25.1 pg Low 26.0-34.0 [facility] Comment on above: Performed By: #### 5 8410-2 ####BHANU Treviño ([id number])[facility] ([facility])[address] [place] [address] 84028 MCHC (RBC) [Mass/Vol] 32.8 g/dL Normal 32.0-36.0 [facility] Comment on above: Performed By: #### 5 8410-2 ####BHANU Treviño ([id number])[facility] ([facility])[address] [place] [address] 38906 MCV (RBC) [Entitic vol] 77 fL Low 80-100 [facility] Comment on above: Performed By: #### 5 8410-2 ####BHANU Treviño ([id number])[facility] ([facility])43007 [place] [address] Nucleated RBC/100 WBC (Bld) [Ratio] 0.0 /100 WBCs Normal 0.0-0.0 [facility] Comment on above: Performed By: #### 5 8410-2 ####BHANU Treviño (62726)[facility] ([facility])13243 [place] [address] Platelets (Bld) [#/Vol] 667 x10*3/uL High 150-450 [facility] Comment on above: Performed By: #### 5 8410-2 ####BHANU Treviño (47267)[facility] ([facility])77141 [place] [address] RBC (Bld) [#/Vol] 3.23 x10*6/uL Low 4.50-5.90 [facility] Comment on above: Performed By: #### 5 8410-2 ####BHANU Treviño ([id number])[facility] ([facility])38836 [place] [address] WBC (Bld) [#/Vol] 11.6 x10*3/uL High 4.4-11.3 [facility] Comment on above: Performed By: #### 5 8410-2 ####BHANU Treviño ([id number])[facility] ([facility])63391 [place] [address] Magnesiumon 02-11-2025 Magnesium [Mass/Vol] 1.70 mg/dL Normal 1.60-2.40 [facility] Comment on above: Performed By: #### 1 9123-9 ####BHANU Treviño ([id number])[facility] ([facility])90290 [place] [address] PT and aPTT panel Coag (PPP) on 02-11-2025 aPTT Coag (PPP) [Time] 35 s Normal 26-36 Un [facility] Comment on above: Order Comment: The A PTT is no longer used for monitoring Unfractionated Heparin Therapy. For monitoring Heparin Therapy, use the Heparin Assay. Performed By: #### 3 4529-8 ####BHANU Treviño (78074)[facility] ([facility])[id number] [place] [address] 81005 INR Coag (PPP) [Relative time] 1.3 High 0.9-1.1 [facility] Comment on above: Order Comment: The A PTT is no longer used for monitoring Unfractionated Heparin Therapy. For monitoring Heparin Therapy, use the Heparin Assay. Performed By: #### 3 4529-8 ####BHANU Treviño ([id number])[facility] ([facility])[id number] [place] [address] 67984 PT Coag (PPP) [Time] 14.2 s High 9.8-12.4 [facility] Comment on above: Order Comment: The A PTT is no longer used for monitoring Unfractionated Heparin Therapy. For monitoring Heparin Therapy, use the Heparin Assay. Performed By: #### 3 4529-8 ####BHANU Treviño ([id number])[facility] ([facility])[id number] [place] [address] 28597 Blood type and Indirect anti body screen panel (Bld)on 02-10-2025 ABO group Nom (Bld) A Normal [facility] Comment on above: Performed By: #### 3 4532-2 ####BHANU Treviño ([id number])[facility] ([facility])[address]105 [place] [address] Blood group antibody screen Ql Negative [facility] Comment on above: Performed By: #### 3 4532-2 ####BHANU Treviño ([id number])[facility] ([facility])[address]70 [place] [address] D Ag Ql (Bld) Positive [facility] Comment on above: Performed By: #### 3 4532-2 ####BHANU Treviño ([id number])[facility] ([facility])[id number] [place] [address] 21748 CBC panel Auto (Bld)on 02-10 Erythrocyte distribution width (RBC) [Ratio] 20.0 % High 11.5-14.5 [facility] Comment on above: Performed By: #### 5 8410-2 ####BHANU Treviño ([id number])[facility] ([facility])[id number] [place] [address] 07091 Hematocrit (Bld) [Volume fraction] 24.6 % Low 41.0-52.0 [facility] Comment on above: Performed By: #### 5 8410-2 ####BHANU Treviño ([id number])[facility] ([facility])[id number] [place] [address] [id number] Hemoglobin (Bld) [Mass/Vol] 8.0 g/dL Low 13.5-17.5 [facility] Comment on above: Performed By: #### 5 8410-2 ####BHANU Treviño ([id number])[facility] ([facility])[id number] [place] [address] [id number] MCH (RBC) [Entitic mass] 25.0 pg Low 26.0-34.0 [facility] Comment on above: Performed By: #### 5 8410-2 ####BHANU Treviño ([id number])[facility] ([facility])[id number] [place] [address] [id number] MCHC (RBC) [Mass/Vol] 32.5 g/dL Normal 32.0-36.0 [facility] Comment on above: Performed By: #### 5 8410-2 ####BHANU Treviño ([id number])[facility] ([facility])[id number] [place] [address] [id number] MCV (RBC) [Entitic vol] 77 fL Low 80-100 [facility] Comment on above: Performed By: #### 5 8410-2 ####BHANU Treviño ([id number])[facility] CENTER)[address] [place] [address] Nucleated RBC/100 WBC (Bld) [Ratio] 0.0 /100 WBCs Normal 0.0-0.0 [facility] Comment on above: Performed By: #### 5 8410-2 ####BHANU Treviño ([id number])[facility] ([facility])[address] [place] [address] Platelets (Bld) [#/Vol] 593 x10*3/uL High 150-450 [facility] Comment on above: Performed By: #### 5 8410-2 ####BHANU Treviño ([id number])[facility] ([facility])[id number] [place] [address] 95119 RBC (Bld) [#/Vol] 3.20 x10*6/uL Low 4.50-5.90 [facility] Comment on above: Performed By: #### 5 8410-2 ####BHANU Treviño ([id number])[facility] ([facility])[id number] [place] [address] 32917 WBC (Bld) [#/Vol] 10.6 x10*3/uL Normal 4.4-11.3 [facility] Comment on above: Performed By: #### 5 8410-2 ####BHANU Treviño ([id number])[facility] ([facility])[id number] [place] [address] 06437 Basic metabolic 2000 panelon 02-08-2025 Anion gap [Moles/Vol] 13 mmol/L Normal 10-20 [facility] Comment on above: Performed By: #### 2 4321-2 ####BHANU Treviño ([id number])[facility] ([facility])[id number] [place] [address]24 Calcium [Mass/Vol] 8.3 mg/dL Low 8.6-10.6 [facility] Comment on above: Performed By: #### 2 4321-2 ####BHANU Treviño ([id number])[facility] ([facility])[address] [place] [address] Chloride [Moles/Vol] 105 mmol/L Normal 98-107 [facility] Comment on above: Performed By: #### 2 4321-2 ####BHANU GREGORY L ([id number])[facility] ([facility])[address] [place] [address] CO2 [Moles/Vol] 27 mmol/L Normal 21-32 [facility] Comment on above: Performed By: #### 2 4321-2 ####BHANU Treviño ([id number])[facility] ([facility])[address]48 [place] [address] Creatinine [Mass/Vol] 1.11 mg/dL Normal 0.50-1.30 [facility] Comment on above: Performed By: #### 2 4321-2 ####BHANU Treviño ([id number])[facility] ([facility])[address] [place] [address] Glomerular filtration rate/1.73 sq M.predicted 80 mL/min/1.73m*2 Normal >60 [facility] Comment on above: Result Comment: Calc ulations of estimated GFR are performed using the 2020 CKD-EPI Study Refit equation without the race variable for the IDMS-Traceable creatinine methods.https://jasn.asnjournals.org/content//A .1595418880 Performed By: #### 2 4321-2 ####BHANU Treviño ([id number])[facility] ([facility])[address] [place] [address] Glucose [Mass/Vol] 124 mg/dL High 74-99 [facility] Comment on above: Performed By: #### 2 4321-2 ####BHANU GREGORY L ([id number])[facility] ([facility])[address]36 [place] [address] Potassium [Moles/Vol] 4.8 mmol/L Normal 3.5-5.3 [facility] Comment on above: Performed By: #### 2 4321-2 ####BHANU Treviño ([id number])[facility] ([facility])[id number] [place] [address] 26902 Sodium [Moles/Vol] 140 mmol/L Normal 136-145 [facility] Comment on above: Performed By: #### 2 4321-2 ####BHANU Treviño ([id number])[facility] ([facility])[id number] [place] [address] 98831 Urea nitrogen [Mass/Vol] 16 mg/dL Normal 6-23 [facility] Comment on above: Performed By: #### 2 4321-2 ####BHANU Treviño ([id number])[facility] ([facility])[address] [place] [address] 77257 CBC panel Auto (Bld)on 02-08 Erythrocyte distribution width (RBC) [Ratio] 20.5 % High 11.5-14.5 [facility] Comment on above: Performed By: #### 5 8410-2 ####BHANU Treviño ([id number])[facility] ([facility])[address] [place] [address] 51742 Hematocrit (Bld) [Volume fraction] 25.2 % Low 41.0-52.0 [facility] Comment on above: Performed By: #### 5 8410-2 ####BHANU Treviño ([id number])[facility] ([facility])[id number] [place] [address] 15819 Hemoglobin (Bld) [Mass/Vol] 8.0 g/dL Low 13.5-17.5 [facility] Comment on above: Performed By: #### 5 8410-2 ####BHANU Treviño ([id number])[facility] ([facility])[address] [place] [address] 12523 MCH (RBC) [Entitic mass] 25.1 pg Low 26.0-34.0 [facility] Comment on above: Performed By: #### 5 8410-2 ####BHANU Treviño (43856)[facility] ([facility])[address] [place] [address] MCHC (RBC) [Mass/Vol] 31.7 g/dL Low 32.0-36.0 [facility] Comment on above: Performed By: #### 5 8410-2 ####BHANU Treviño ([id number])[facility] ([facility])[address]32 [place] [address] MCV (RBC) [Entitic vol] 79 fL Low 80-100 [facility] Comment on above: Performed By: #### 5 8410-2 ####BHANU Treviño ([id number])[facility] ([facility])[id number] [place] [address] 59101 Nucleated RBC/100 WBC (Bld) [Ratio] 0.0 /100 WBCs Normal 0.0-0.0 [facility] Comment on above: Performed By: #### 5 8410-2 ####BHANU Treviño ([id number])[facility] ([facility])[address]12 [place] [address] Platelets (Bld) [#/Vol] 463 x10*3/uL High 150-450 [facility] Comment on above: Performed By: #### 5 8410-2 ####BHANU Treviño ([id number])[facility] ([facility])[address]51 [place] [address] RBC (Bld) [#/Vol] 3.19 x10*6/uL Low 4.50-5.90 [facility] Comment on above: Performed By: #### 5 8410-2 ####BHANU Treviño ([id number])[facility] ([facility])[address]85 [place] [address] WBC (Bld) [#/Vol] 10.0 x10*3/uL Normal 4.4-11.3 [facility] Comment on above: Performed By: #### 5 8410-2 ####BHANU Treviño ([id number])[facility] ([facility])[address]472 [place] [address] Basic metabolic 2000 panelon 02-07-2025 Anion gap [Moles/Vol] 15 mmol/L Normal 10-20 [facility] Comment on above: Performed By: #### 2 4321-2 ####BHANU Treviño (03920)[facility] ([facility])[address]82 [place] [address] Calcium [Mass/Vol] 8.4 mg/dL Low 8.6-10.6 [facility] Comment on above: Performed By: #### 2 4321-2 ####BHANU Treviño ([id number])[facility] ([facility])[address]38 [place] [address] Chloride [Moles/Vol] 106 mmol/L Normal 98-107 [facility] Comment on above: Performed By: #### 2 4321-2 ####BHANU Treviño (67838)[facility] ([facility])[address]35 [place] [address] CO2 [Moles/Vol] 24 mmol/L Normal 21-32 [facility] Comment on above: Performed By: #### 2 4321-2 ####BHANU GREGORY L ([id number])[facility] ([facility])[address]608 [place] [address] Creatinine [Mass/Vol] 1.09 mg/dL Normal 0.50-1.30 [facility] Comment on above: Performed By: #### 2 4321-2 ####BHANU GREGORY L ([id number])[facility] ([facility])[address]958 [place] [address] Glomerular filtration rate/1.73 sq M.predicted 82 mL/min/1.73m*2 Normal >60 [facility] Comment on above: Result Comment: Calc ulations of estimated GFR are performed using the 2020 CKD-EPI Study Refit equation without the race variable for the IDMS-Traceable creatinine methods.https://jasn.asnjournals.org/content//A SN.4594681372 Performed By: #### 2 4321-2 ####BHANU Treviño ([id number])[facility] ([facility])[address]00 [place] [address] Glucose [Mass/Vol] 110 mg/dL High 74-99 [facility] Comment on above: Performed By: #### 2 4321-2 ####BHANU Treviño (48049)[facility] ([facility])47326 [place] [address] Potassium [Moles/Vol] 4.7 mmol/L Normal 3.5-5.3 [facility] Comment on above: Performed By: #### 2 4321-2 ####BHANU Treviño ([id number])[facility] ([facility])[address]57 [place] [address] Sodium [Moles/Vol] 140 mmol/L Normal 136-145 [facility] Comment on above: Performed By: #### 2 4321-2 ####BHANU Treviño (31352)[facility] ([facility])[address] [place] [address] 69827 Urea nitrogen [Mass/Vol] 18 mg/dL Normal 6-23 [facility] Comment on above: Performed By: #### 2 4321-2 ####BHANU Treviño ([id number])[facility] ([facility])[address]01 [place] [address] CBC panel Auto (Bld)on 02-07 Erythrocyte distribution width (RBC) [Ratio] 20.4 % High 11.5-14.5 [facility] Comment on above: Performed By: #### 5 8410-2 ####BHANU Treviño ([id number])[facility] ([facility])[address]23 [place] [address] Hematocrit (Bld) [Volume fraction] 27.2 % Low 41.0-52.0 [facility] Comment on above: Performed By: #### 5 8410-2 ####BHANU Treviño ([id number])[facility] ([facility])67898 [place] [address] Hemoglobin (Bld) [Mass/Vol] 9.0 g/dL Low 13.5-17.5 [facility] Comment on above: Performed By: #### 5 8410-2 ####BHANU Treviño ([id number])[facility] ([facility])[address]30 [place] [address] MCH (RBC) [Entitic mass] 25.6 pg Low 26.0-34.0 [facility] Comment on above: Performed By: #### 5 8410-2 ####BHANU Treviño ([id number])[facility] ([facility])[address] [place] [address] 35042 MCHC (RBC) [Mass/Vol] 33.1 g/dL Normal 32.0-36.0 [facility] Comment on above: Performed By: #### 5 8410-2 ####BHANU Treviño (85343)[facility] ([facility])41596 [place] [address] MCV (RBC) [Entitic vol] 77 fL Low 80-100 [facility] Comment on above: Performed By: #### 5 8410-2 ####BHANU Treviño (46812)[facility] ([facility])[address]1506 [place] [address] Nucleated RBC/100 WBC (Bld) [Ratio] 0.0 /100 WBCs Normal 0.0-0.0 [facility] Comment on above: Performed By: #### 5 8410-2 ####BHANU Treviño (13860)[facility] ([facility])23149 [place] [address] Platelets (Bld) [#/Vol] 483 x10*3/uL High 150-450 [facility] Comment on above: Performed By: #### 5 8410-2 ####BHANU Treviño (99626)[facility] ([facility])76575 [place] [address] RBC (Bld) [#/Vol] 3.52 x10*6/uL Low 4.50-5.90 [facility] Comment on above: Performed By: #### 5 8410-2 ####BHANU Treviño ([id number])[facility] ([facility])90718 [place] [address] WBC (Bld) [#/Vol] 9.2 x10*3/uL Normal 4.4-11.3 [facility] Comment on above: Performed By: #### 5 8410-2 ####BHANU Treviño ([id number])[facility] ([facility])[address] [place] [address] 79381 Magnesiumon 02-07-2025 Magnesium [Mass/Vol] 2.05 mg/dL Normal 1.60-2.40 [facility] Comment on above: Performed By: #### 1 9123-9 ####BHANU Treviño ([id number])[facility] ([facility])[address]409 [place] [address] Basic metabolic 2000 panelon 02-06-2025 Anion gap [Moles/Vol] 12 mmol/L Normal 10-20 [facility] Comment on above: Performed By: #### 2 4321-2 ####BHANU Treviño (96510)[facility] ([facility])60439 [place] [address] Calcium [Mass/Vol] 8.1 mg/dL Low 8.6-10.6 [facility] Comment on above: Performed By: #### 2 4321-2 ####BHANU Treviño (29725)[facility] ([facility])[address] [place] [address] 38929 Chloride [Moles/Vol] 106 mmol/L Normal 98-107 [facility] Comment on above: Performed By: #### 2 4321-2 ####BHANU Treviño (51182)[facility] ([facility])[address]87 [place] [address] CO2 [Moles/Vol] 28 mmol/L Normal 21-32 [facility] Comment on above: Performed By: #### 2 4321-2 ####BHANU Treviño (75803)[facility] ([facility])[address]145 [place] [address] Creatinine [Mass/Vol] 1.22 mg/dL Normal 0.50-1.30 [facility] Comment on above: Performed By: #### 2 4321-2 ####BHANU Treviño (36209)[facility] ([facility])[address]56 [place] [address] Glomerular filtration rate/1.73 sq M.predicted 72 mL/min/1.73m*2 Normal >60 [facility] Comment on above: Result Comment: Calc ulations of estimated GFR are performed using the 2020 CKD-EPI Study Refit equation without the race variable for the IDMS-Traceable creatinine methods.https://jasn.asnjournals.org/content/early//A .5856693463 Performed By: #### 2 4321-2 ####BHANU Treviño ([id number])[facility] ([facility])44208 [place] [address] Glucose [Mass/Vol] 98 mg/dL Normal 74-99 [facility] Comment on above: Performed By: #### 2 4321-2 ####BHANU Treviño (49337)[facility] ([facility])91944 [place] [address] Potassium [Moles/Vol] 4.5 mmol/L Normal 3.5-5.3 [facility] Comment on above: Performed By: #### 2 4321-2 ####BHANU Treviño (94706)[facility] ([facility])53376 [place] [address] Sodium [Moles/Vol] 141 mmol/L Normal 136-145 [facility] Comment on above: Performed By: #### 2 4321-2 ####BHANU Treviño (20181)[facility] ([facility])07840 [place] [address] Urea nitrogen [Mass/Vol] 15 mg/dL Normal 6-23 [facility] Comment on above: Performed By: #### 2 4321-2 ####BHANU Treviño (47358)[facility] ([facility])[address] [place] [address] 21695 CBC panel Auto (Bld)on 02-06 Erythrocyte distribution width (RBC) [Ratio] 20.2 % High 11.5-14.5 [facility] Comment on above: Performed By: #### 5 8410-2 ####BHANU Treviño ([id number])[facility] ([facility])[address] [place] [address] 37694 Hematocrit (Bld) [Volume fraction] 26.1 % Low 41.0-52.0 [facility] Comment on above: Performed By: #### 5 8410-2 ####BHANU Treviño (58574)[facility] ([facility])[address] [place] [address] 55711 Hemoglobin (Bld) [Mass/Vol] 8.4 g/dL Low 13.5-17.5 [facility] Comment on above: Performed By: #### 5 8410-2 ####BHANU Treviño ([id number])[facility] ([facility])[address] [place] [address] 69320 MCH (RBC) [Entitic mass] 25.1 pg Low 26.0-34.0 [facility] Comment on above: Performed By: #### 5 8410-2 ####BHANU Treviño ([id number])[facility] ([facility])[address] [place] [address] 17045 MCHC (RBC) [Mass/Vol] 32.2 g/dL Normal 32.0-36.0 [facility] Comment on above: Performed By: #### 5 8410-2 ####BHANU Treviño (97360)[facility] ([facility])[address]9558 [place] [address] MCV (RBC) [Entitic vol] 78 fL Low 80-100 [facility] Comment on above: Performed By: #### 5 8410-2 ####BHANU Treviño (49027)[facility] ([facility])55159 [place] [address] Nucleated RBC/100 WBC (Bld) [Ratio] 0.0 /100 WBCs Normal 0.0-0.0 [facility] Comment on above: Performed By: #### 5 8410-2 ####BHANU Treviño (93684)[facility] ([facility])[address] [place] [address] 41764 Platelets (Bld) [#/Vol] 426 x10*3/uL Normal 150-450 [facility] Comment on above: Performed By: #### 5 8410-2 ####BHANU Treviño ([id number])[facility] ([facility])[address] [place] [address] 76666 RBC (Bld) [#/Vol] 3.34 x10*6/uL Low 4.50-5.90 [facility] Comment on above: Performed By: #### 5 8410-2 ####BHANU Treviño (66971)[facility] ([facility])44513 [place] [address] WBC (Bld) [#/Vol] 9.4 x10*3/uL Normal 4.4-11.3 [facility] Comment on above: Performed By: #### 5 8410-2 ####BHANU Treviño ([id number])[facility] ([facility])55358 [place] [address] Magnesiumon 02-06-2025 Magnesium [Mass/Vol] 2.21 mg/dL Normal 1.60-2.40 [facility] Comment on above: Performed By: #### 1 9123-9 ####BHANU Treviño ([id number])[facility] ([facility])97995 [place] [address] CBC panel Auto (Bld)on 02-05 Erythrocyte distribution width (RBC) [Ratio] 19.9 % High 11.5-14.5 [facility] Comment on above: Performed By: #### 5 8410-2 ####BHANU Treviño (53199)[facility] ([facility])[address] [place] [address] 99539 Hematocrit (Bld) [Volume fraction] 26.4 % Low 41.0-52.0 [facility] Comment on above: Performed By: #### 5 8410-2 ####BHANU Treviño (41980)[facility] ([facility])[address] [place] [address] 64162 Hemoglobin (Bld) [Mass/Vol] 8.4 g/dL Low 13.5-17.5 [facility] Comment on above: Performed By: #### 5 8410-2 ####BHANU Treviño (64862)[facility] ([facility])[address] [place] [address] 91730 MCH (RBC) [Entitic mass] 24.6 pg Low 26.0-34.0 [facility] Comment on above: Performed By: #### 5 8410-2 ####BHANU Treviño (80656)[facility] ([facility])06803 [place] [address] MCHC (RBC) [Mass/Vol] 31.8 g/dL Low 32.0-36.0 [facility] Comment on above: Performed By: #### 5 8410-2 ####BHANU Treviño (81740)[facility] ([facility])[address] [place] [address] 03237 MCV (RBC) [Entitic vol] 77 fL Low 80-100 [facility] Comment on above: Performed By: #### 5 8410-2 ####BHANU Treviño (89210)[facility] ([facility])[address] [place] [address] 09970 Nucleated RBC/100 WBC (Bld) [Ratio] 0.0 /100 WBCs Normal 0.0-0.0 [facility] Comment on above: Performed By: #### 5 8410-2 ####BHANU Treviño (44319)[facility] ([facility])[address] [place] [address] 83958 Platelets (Bld) [#/Vol] 399 x10*3/uL Normal 150-450 [facility] Comment on above: Performed By: #### 5 8410-2 ####BHANU Treviño (69842)[facility] ([facility])[address] [place] [address] 27804 RBC (Bld) [#/Vol] 3.41 x10*6/uL Low 4.50-5.90 [facility] Comment on above: Performed By: #### 5 8410-2 ####BHANU Treviño ([id number])[facility] ([facility])[address] [place] [address] 76037 WBC (Bld) [#/Vol] 10.1 x10*3/uL Normal 4.4-11.3 [facility] Comment on above: Performed By: #### 5 8410-2 ####BHANU Treviño ([id number])[facility] ([facility])[address] [place] [address] 21505 Magnesiumon 02-05-2025 Magnesium [Mass/Vol] 1.87 mg/dL Normal 1.60-2.40 [facility] Comment on above: Performed By: #### 1 9123-9 ####BHANU Treviño (39909)[facility] ([facility])[address] [place] [address] 62610 Renal function 2000 panelon 02-05-2025 Albumin BCP dye [Mass/Vol] 2.6 g/dL Low 3.4-5.0 [facility] Comment on above: Performed By: #### 2 4362-6 ####BHANU Treviño ([id number])[facility] ([facility])[address] [place] [address] Anion gap [Moles/Vol] 13 mmol/L Normal 10-20 [facility] Comment on above: Performed By: #### 2 4362-6 ####BHANU GREGORY L ([id number])[facility] ([facility])[address] [place] [address] Calcium [Mass/Vol] 7.7 mg/dL Low 8.6-10.6 [facility] Comment on above: Performed By: #### 2 4362-6 ####BHANU GREGORY L ([id number])[facility] ([facility])[address] [place] [address] Chloride [Moles/Vol] 107 mmol/L Normal 98-107 [facility] Comment on above: Performed By: #### 2 4362-6 ####BHANU GREGORY L ([id number])[facility] ([facility])[address] [place] [address] CO2 [Moles/Vol] 26 mmol/L Normal 21-32 [facility] Comment on above: Performed By: #### 2 4362-6 ####BHANU GREGORY L ([id number])[facility] ([facility])[address] [place] [address] Creatinine [Mass/Vol] 1.02 mg/dL Normal 0.50-1.30 [facility] Comment on above: Performed By: #### 2 4362-6 ####BHANU GREGORY L ([id number])[facility] ([facility])[address] [place] [address] Glomerular filtration rate/1.73 sq M.predicted 89 mL/min/1.73m*2 Normal >60 [facility] Comment on above: Result Comment: Calc ulations of estimated GFR are performed using the 2020 CKD-EPI Study Refit equation without the race variable for the IDMS-Traceable creatinine methods.https://jasn.asnjournals.org/content/early//A SN.[id number] Performed By: #### 2 4362-6 ####BHANU Treviño ([id number])[facility] ([facility])[address] [place] [address] Glucose [Mass/Vol] 94 mg/dL Normal 74-99 [facility] Comment on above: Performed By: #### 2 4362-6 ####BHANU Treviño ([id number])[facility] ([facility])[address]85 [place] [address] Phosphate [Mass/Vol] 2.8 mg/dL Normal 2.5-4.9 [facility] Comment on above: Performed By: #### 2 4362-6 ####BHANU Treviño ([id number])[facility] ([facility])[address]94 [place] [address] Potassium [Moles/Vol] 4.4 mmol/L Normal 3.5-5.3 [facility] Comment on above: Performed By: #### 2 4362-6 ####BHANU Treviño ([id number])[facility] ([facility])[address] [place] [address] Sodium [Moles/Vol] 142 mmol/L Normal 136-145 [facility] Comment on above: Performed By: #### 2 4362-6 ####BHANU Treviño ([id number])[facility] ([facility])[address]172 [place] [address] Urea nitrogen [Mass/Vol] 13 mg/dL Normal 6-23 [facility] Comment on above: Performed By: #### 2 4362-6 ####BHANU Treviño ([id number])[facility] ([facility])[address] [place] [address] Bacteria identifiedon 2024 Bacteria identified Cx Nom (Unsp spec) Abnormal [facility] Comment on above: Performed By: #### 6 463-4 ####BHANU Treviño ([id number])[facility] ([facility])[address] [place] [address] Blood type and Indirect anti body screen panel (Bld)on 02-04-2025 ABO group Nom (Bld) A Normal [facility] Comment on above: Performed By: #### 3 4532-2 ####BHANU Treviño ([id number])[facility] ([facility])[id number] [place] [address]76 Blood group antibody screen Ql Negative [facility] Comment on above: Performed By: #### 3 4532-2 ####BHANU Treviño ([id number])[facility] ([facility])[address] [place] [address], [place] [address] D Ag Ql (Bld) Positive [facility] Comment on above: Performed By: #### 3 4532-2 ####BHANU Treviño ([id number])[facility] ([facility])[address] [place] [address]009 CBC panel Auto (Bld)on 02-04 Erythrocyte distribution width (RBC) [Ratio] 19.6 % High 11.5-14.5 [facility] Comment on above: Performed By: #### 5 8410-2 ####BHANU Treviño ([id number])[facility] ([facility])[address] [place] [address] Hematocrit (Bld) [Volume fraction] 28.8 % Low 41.0-52.0 [facility] Comment on above: Performed By: #### 5 8410-2 ####BHANU Treviño ([id number])[facility] ([facility])[address] [place] [address]257 Hemoglobin (Bld) [Mass/Vol] 9.1 g/dL Low 13.5-17.5 [facility] Comment on above: Performed By: #### 5 8410-2 ####BHANU Treviño ([id number])[facility] ([facility])[address] [place] [address] 87936 MCH (RBC) [Entitic mass] 24.6 pg Low 26.0-34.0 [facility] Comment on above: Performed By: #### 5 8410-2 ####BHANU Treviño ([id number])[facility] ([facility])[address] [place] [address] MCHC (RBC) [Mass/Vol] 31.6 g/dL Low 32.0-36.0 [facility] Comment on above: Performed By: #### 5 8410-2 ####BHANU Treviño (86939)[facility] ([facility])[address] [place] [address] MCV (RBC) [Entitic vol] 78 fL Low 80-100 [facility] Comment on above: Performed By: #### 5 8410-2 ####BHANU Treviño (71660)[facility] ([facility])[address]13 [place] [address] Nucleated RBC/100 WBC (Bld) [Ratio] 0.0 /100 WBCs Normal 0.0-0.0 [facility] Comment on above: Performed By: #### 5 8410-2 ####BHANU Treviño (62157)[facility] ([facility])[address]216 [place] [address] Platelets (Bld) [#/Vol] 430 x10*3/uL Normal 150-450 [facility] Comment on above: Performed By: #### 5 8410-2 ####BHANU Treviño ([id number])[facility] ([facility])[address]28 [place] [address] RBC (Bld) [#/Vol] 3.70 x10*6/uL Low 4.50-5.90 [facility] Comment on above: Performed By: #### 5 8410-2 ####BHANU Treviño ([id number])[facility] ([facility])[address]35 [place] [address] WBC (Bld) [#/Vol] 10.7 x10*3/uL Normal 4.4-11.3 [facility] Comment on above: Performed By: #### 5 8410-2 ####BHANU Treviño ([id number])[facility] ([facility])[address] [place] [address] Fungus identifiedon 02-05-20 Fungus identified Cx Nom (Unsp spec) Abnormal [facility] Comment on above: Performed By: #### 5 80-1 ####BHANU Treviño ([id number])[facility] ([facility])[id number] [place] [address] 25091 Magnesiumon 02-04-2025 Magnesium [Mass/Vol] 1.84 mg/dL Normal 1.60-2.40 [facility] Comment on above: Performed By: #### 1 9123-9 ####BHANU Treviño ([id number])[facility] ([facility])[address] [place] [address] 11598 PT and aPTT panel Coag (PPP) on 02-04-2025 aPTT Coag (PPP) [Time] 33 s Normal 26-36 [facility] Comment on above: Order Comment: The A PTT is no longer used for monitoring Unfractionated Heparin Therapy. For monitoring Heparin Therapy, use the Heparin Assay. Performed By: #### 3 4529-8 ####BHANU Treviño ([id number])[facility] ([facility])[address] [place] [address] 26328 INR Coag (PPP) [Relative time] 1.2 High 0.9-1.1 [facility] Comment on above: Order Comment: The A PTT is no longer used for monitoring Unfractionated Heparin Therapy. For monitoring Heparin Therapy, use the Heparin Assay. Performed By: #### 3 4529-8 ####BHANU Treviño ([id number])[facility] ([facility])[address] [place] [address] 29943 PT Coag (PPP) [Time] 13.4 s High 9.8-12.4 [facility] Comment on above: Order Comment: The A PTT is no longer used for monitoring Unfractionated Heparin Therapy. For monitoring Heparin Therapy, use the Heparin Assay. Performed By: #### 3 4529-8 ####BHANU Treviño ([id number])[facility] ([facility])[address] [place] [address] Renal function 2000 panelon 02-04-2025 Albumin BCP dye [Mass/Vol] 2.5 g/dL Low 3.4-5.0 [facility] Comment on above: Performed By: #### 2 4362-6 ####BHANU Treviño ([id number])[facility] ([facility])[address]334 [place] [address] Anion gap [Moles/Vol] 11 mmol/L Normal 10-20 [facility] Comment on above: Performed By: #### 2 4362-6 ####BHANU Treviño (36941)[facility] ([facility])[address]104 [place] [address] Calcium [Mass/Vol] 8.2 mg/dL Low 8.6-10.6 [facility] Comment on above: Performed By: #### 2 4362-6 ####BHANU Treviño (00586)[facility] ([facility])[address]350 [place] [address] Chloride [Moles/Vol] 107 mmol/L Normal 98-107 [facility] Comment on above: Performed By: #### 2 4362-6 ####BHANU Treviño (09268)[facility] ([facility])[address]81 [place] [address] CO2 [Moles/Vol] 28 mmol/L Normal 21-32 [facility] Comment on above: Performed By: #### 2 4362-6 ####BHANU Treviño (79868)[facility] ([facility])[address]852 [place] [address] Creatinine [Mass/Vol] 1.23 mg/dL Normal 0.50-1.30 [facility] Comment on above: Performed By: #### 2 4362-6 ####BHANU Treviño ([id number])[facility] ([facility])[address]39 [place] [address] Glomerular filtration rate/1.73 sq M.predicted 71 mL/min/1.73m*2 Normal >60 [facility] Comment on above: Result Comment: Calc ulations of estimated GFR are performed using the 2020 CKD-EPI Study Refit equation without the race variable for the IDMS-Traceable creatinine methods.https://jasn.asnjournals.org/content/early/A SN.0851276722 Performed By: #### 2 4362-6 ####BHANU Treviño ([id number])[facility] ([facility])[address]123 [place] [address] Glucose [Mass/Vol] 108 mg/dL High 74-99 [facility] Comment on above: Performed By: #### 2 4362-6 ####BHANU Treviño (59788)[facility] ([facility])[address]1008 [place] [address] Phosphate [Mass/Vol] 2.1 mg/dL Low 2.5-4.9 [facility] Comment on above: Performed By: #### 2 4362-6 ####BHANU GREGORY L (32030)[facility] ([facility])[address]247 [place] [address] Potassium [Moles/Vol] 4.3 mmol/L Normal 3.5-5.3 [facility] Comment on above: Performed By: #### 2 4362-6 ####BHANU GREGORY L (78400)[facility] ([facility])89651 [place] [address] Sodium [Moles/Vol] 142 mmol/L Normal 136-145 [facility] Comment on above: Performed By: #### 2 4362-6 ####BHANU GREGORY L (22886)[facility] ([facility])[address]659 [place] [address] Urea nitrogen [Mass/Vol] 15 mg/dL Normal 6-23 [facility] Comment on above: Performed By: #### 2 4362-6 ####BHANU Treviño ([id number])[facility] ([facility])[address] [place] [address] 12022 CBC W Auto Differential pane l (Bld)on 02-03-2025 Basophils (Bld) [#/Vol] 0.05 x10*3/uL Normal 0.00-0.10 [facility] Comment on above: Performed By: #### 5 7021-8 ####BHANU Treviño ([id number])[facility] ([facility])[address] [place] [address] 43314 Basophils/100 WBC (Bld) 0.7 % Normal 0.0-2.0 [facility] Comment on above: Performed By: #### 5 7021-8 ####BHANU Treviño ([id number])[facility] ([facility])[address] [place] [address] 22085 Eosinophils (Bld) [#/Vol] 0.55 x10*3/uL Normal 0.00-0.70 [facility] Comment on above: Performed By: #### 5 7021-8 ####BHANU Treviño (62492)[facility] ([facility])[address] [place] [address] 66853 Eosinophils/100 WBC (Bld) 7.4 % Normal 0.0-6.0 [facility] Comment on above: Performed By: #### 5 7021-8 ####BHANU Treviño (49636)[facility] ([facility])[address] [place] [address] 84168 Erythrocyte distribution width (RBC) [Ratio] 20.0 % High 11.5-14.5 [facility] Comment on above: Performed By: #### 5 7021-8 ####BHANU Treviño ([id number])[facility] ([facility])[address] [place] [address] 10153 Hematocrit (Bld) [Volume fraction] 25.4 % Low 41.0-52.0 [facility] Comment on above: Performed By: #### 5 7021-8 ####BHANU LAUREANOTZER L (79994)[facility] ([facility])[address]40 [place] [address] Hemoglobin (Bld) [Mass/Vol] 8.0 g/dL Low 13.5-17.5 [facility] Comment on above: Performed By: #### 5 7021-8 ####BHANU FLEMINGMOTZER L (50502)[facility] ([facility])[address] [place] [address] 37779 Immature granulocytes (Bld) [#/Vol] 0.03 x10*3/uL Normal 0.00-0.70 [facility] Comment on above: Performed By: #### 5 7021-8 ####BHANU FLEMINGMOTZER L ([id number])[facility] ([facility])[address] [place] [address] 32579 Immature granulocytes/100 WBC (Bld) 0.4 % Normal 0.0-0.9 [facility] Comment on above: Result Comment: Christine ture Granulocyte Count (IG) includes promyelocytes, myelocytes and metamyelocytes but does not include bands. Percent differential counts (%) should be interpreted in the context of the absolute cell counts (cells/UL). Performed By: #### 5 7021-8 ####BHANU GREGORY L ([id number])[facility] ([facility])[address] [place] [address] 32366 Lymphocytes (Bld) [#/Vol] 1.37 x10*3/uL Normal 1.20-4.80 [facility] Comment on above: Performed By: #### 5 7021-8 ####BHANU FLEMINGMOTZER L ([id number])[facility] ([facility])[address] [place] [address] 83994 Lymphocytes/100 WBC (Bld) 18.4 % Normal 13.0-44.0 [facility] Comment on above: Performed By: #### 5 7021-8 ####BHANU FLEMINGMOTZER L (66503)[facility] ([facility])[address] [place] [address] [place] [address] MCH (RBC) [Entitic mass] 24.2 pg Low 26.0-34.0 [facility] Comment on above: Performed By: #### 5 7021-8 ####BHANU Treviño ([id number])[facility] ([facility])[address]14 [place] [address] MCHC (RBC) [Mass/Vol] 31.5 g/dL Low 32.0-36.0 [facility] Comment on above: Performed By: #### 5 7021-8 ####BHANU Treviño (30546)[facility] ([facility])28417 [place] [address] MCV (RBC) [Entitic vol] 77 fL Low 80-100 [facility] Comment on above: Performed By: #### 5 7021-8 ####BHANU Treviño (94368)[facility] ([facility])06881 [place] [address] Monocytes (Bld) [#/Vol] 0.67 x10*3/uL Normal 0.10-1.00 [facility] Comment on above: Performed By: #### 5 7021-8 ####BHANU Treviño (21965)[facility] ([facility])11567 [place] [address] Monocytes/100 WBC (Bld) 9.0 % Normal 2.0-10.0 [facility] Comment on above: Performed By: #### 5 7021-8 ####BHANU Treviño (52685)[facility] ([facility])71375 [place] [address] Neutrophils (Bld) [#/Vol] 4.77 x10*3/uL Normal 1.20-7.70 [facility] Comment on above: Result Comment: Perc ent differential counts (%) should be interpreted in the context of the absolute cell counts (cells/uL). Performed By: #### 5 7021-8 ####BHANU Treviño (69731)[facility] ([facility])[address] [place] [address] 07207 Neutrophils/100 WBC (Bld) 64.1 % Normal 40.0-80.0 [facility] Comment on above: Performed By: #### 5 7021-8 ####BHANU Treviño (84425)[facility] ([facility])[address] [place] [address] 76918 Nucleated RBC/100 WBC (Bld) [Ratio] 0.0 /100 WBCs Normal 0.0-0.0 [facility] Comment on above: Performed By: #### 5 7021-8 ####BHANU Treviño (37752)[facility] ([facility])[address] [place] [address] 58144 Platelets (Bld) [#/Vol] 407 x10*3/uL Normal 150-450 [facility] Comment on above: Performed By: #### 5 7021-8 ####BHANU Treviño ([id number])[facility] ([facility])[address] [place] [address] 20506 RBC (Bld) [#/Vol] 3.31 x10*6/uL Low 4.50-5.90 [facility] Comment on above: Performed By: #### 5 7021-8 ####BHANU Treviño (05423)[facility] ([facility])[address] [place] [address] 81819 WBC (Bld) [#/Vol] 7.4 x10*3/uL Normal 4.4-11.3 [facility] Comment on above: Performed By: #### 5 7021-8 ####BHANU Treviño (67097)[facility] ([facility])[address] [place] [address] 88683 Glucose Test strip manual (B ld) [Mass/Vol]on 02-03-2025 Glucose [Mass/Vol] 102 mg/dL High 74-99 [facility] Comment on above: Performed By: #### 2 341-6 ####BHANU Treviño (84022)[facility] ([facility])76268 [place] [address] Renal function 2000 panelon 02-03-2025 Albumin BCP dye [Mass/Vol] 2.4 g/dL Low 3.4-5.0 [facility] Comment on above: Performed By: #### 2 4362-6 ####BHANU Treviño (56708)[facility] ([facility])[address] [place] [address] Anion gap [Moles/Vol] 10 mmol/L Normal 10-20 [facility] Comment on above: Performed By: #### 2 4362-6 ####BHANU Treviño (90188)[facility] ([facility])44287 [place] [address] Calcium [Mass/Vol] 7.8 mg/dL Low 8.6-10.6 [facility] Comment on above: Performed By: #### 2 4362-6 ####BHANU Treviño (02448)[facility] ([facility])[address]341 [place] [address] Chloride [Moles/Vol] 107 mmol/L Normal 98-107 [facility] Comment on above: Performed By: #### 2 4362-6 ####BHANU Treviño (65762)[facility] ([facility])[address] [place] [address] CO2 [Moles/Vol] 30 mmol/L Normal 21-32 [facility] Comment on above: Performed By: #### 2 4362-6 ####BHANU Treviño (05927)[facility] ([facility])05495 [place] [address] Creatinine [Mass/Vol] 1.10 mg/dL Normal 0.50-1.30 [facility] Comment on above: Performed By: #### 2 4362-6 ####BHANU Treviño (82561)[facility] ([facility])35082 [place] [address] Glomerular filtration rate/1.73 sq M.predicted 81 mL/min/1.73m*2 Normal >60 [facility] Comment on above: Result Comment: Calc ulations of estimated GFR are performed using the 2020 CKD-EPI Study Refit equation without the race variable for the IDMS-Traceable creatinine methods.https://jasn.asnjournals.org/content//A SN.7409368534 Performed By: #### 2 4362-6 ####BHANU Treviño (65746)[facility] ([facility])[address]89 [place] [address] Glucose [Mass/Vol] 94 mg/dL Normal 74-99 [facility] Comment on above: Performed By: #### 2 4362-6 ####BHANU Treviño (13596)[facility] ([facility])02906 [place] [address] Phosphate [Mass/Vol] 2.9 mg/dL Normal 2.5-4.9 [facility] Comment on above: Performed By: #### 2 4362-6 ####BHANU Treviño ([id number])[facility] ([facility])66194 [place] [address] Potassium [Moles/Vol] 4.9 mmol/L Normal 3.5-5.3 [facility] Comment on above: Performed By: #### 2 4362-6 ####BHANU Treviño (74525)[facility] ([facility])[address]49 [place] [address] Sodium [Moles/Vol] 142 mmol/L Normal 136-145 [facility] Comment on above: Performed By: #### 2 4362-6 ####BHANU Treviño (45999)[facility] ([facility])83006 [place] [address] Urea nitrogen [Mass/Vol] 15 mg/dL Normal 6-23 [facility] Comment on above: Performed By: #### 2 4362-6 ####BHANU Treviño (93636)[facility] ([facility])15315 [place] [address] CBC W Auto Differential pane l (Bld)on 02-02-2025 Basophils (Bld) [#/Vol] 0.05 x10*3/uL Normal 0.00-0.10 [facility] Comment on above: Performed By: #### 5 7021-8 ####BHANU Treviño ([id number])[facility] ([facility])[id number] [place] [address] 33783 Basophils/100 WBC (Bld) 0.9 % Normal 0.0-2.0 [facility] Comment on above: Performed By: #### 5 7021-8 ####BHANU Treviño (58391)[facility] ([facility])[id number] [place] [address] 91488 Eosinophils (Bld) [#/Vol] 0.51 x10*3/uL Normal 0.00-0.70 [facility] Comment on above: Performed By: #### 5 7021-8 ####BHANU GREGORY L ([id number])[facility] ([facility])[id number] [place] [address] 88456 Eosinophils/100 WBC (Bld) 9.2 % Normal 0.0-6.0 [facility] Comment on above: Performed By: #### 5 7021-8 ####BHANU Treviño ([id number])[facility] ([facility])[id number] [place] [address] Erythrocyte distribution width (RBC) [Ratio] 19.2 % High 11.5-14.5 [facility] Comment on above: Performed By: #### 5 7021-8 ####BHANU GREGORY L ([id number])[facility] ([facility])[id number] [place] [address]221 Hematocrit (Bld) [Volume fraction] 30.4 % Low 41.0-52.0 [facility] Comment on above: Performed By: #### 5 7021-8 ####BHANU GREGORY L ([id number])[facility] ([facility])[address] [place] [address] Hemoglobin (Bld) [Mass/Vol] 9.7 g/dL Low 13.5-17.5 [facility] Comment on above: Performed By: #### 5 7021-8 ####BHANU Treviño ([id number])[facility] ([facility])[address] [place] [address] Immature granulocytes (Bld) [#/Vol] 0.02 x10*3/uL Normal 0.00-0.70 [facility] Comment on above: Performed By: #### 5 7021-8 ####BHANU Treviño ([id number])[facility] ([facility])[address] [place] [address] Immature granulocytes/100 WBC (Bld) 0.4 % Normal 0.0-0.9 [facility] Comment on above: Result Comment: Christine ture Granulocyte Count (IG) includes promyelocytes, myelocytes and metamyelocytes but does not include bands. Percent differential counts (%) should be interpreted in the context of the absolute cell counts (cells/UL). Performed By: #### 5 7021-8 ####BHANU Treviño ([id number])[facility] ([facility])[address] [place] [address] Lymphocytes (Bld) [#/Vol] 0.92 x10*3/uL Low 1.20-4.80 [facility] Comment on above: Performed By: #### 5 7021-8 ####BHANU Treviño ([id number])[facility] ([facility])[address]34 [place] [address] Lymphocytes/100 WBC (Bld) 16.6 % Normal 13.0-44.0 [facility] Comment on above: Performed By: #### 5 7021-8 ####BHANU Treviño ([id number])[facility] ([facility])[address]67 [place] [address] MCH (RBC) [Entitic mass] 24.4 pg Low 26.0-34.0 [facility] Comment on above: Performed By: #### 5 7021-8 ####BHANU GREGORY L ([id number])[facility] ([facility])[address]001 [place] [address] MCHC (RBC) [Mass/Vol] 31.9 g/dL Low 32.0-36.0 [facility] Comment on above: Performed By: #### 5 7021-8 ####BHANU SCHMOTZER L ([id number])[facility] ([facility])[address]690 [place] [address] MCV (RBC) [Entitic vol] 77 fL Low 80-100 [facility] Comment on above: Performed By: #### 5 7021-8 ####BHANU GREGORY L ([id number])[facility] ([facility])[address]24 [place] [address] Monocytes (Bld) [#/Vol] 0.63 x10*3/uL Normal 0.10-1.00 [facility] Comment on above: Performed By: #### 5 7021-8 ####BHANU FLEMINGMOJOSEFA L ([id number])[facility] ([facility])[address]233 [place] [address] Monocytes/100 WBC (Bld) 11.4 % Normal 2.0-10.0 [facility] Comment on above: Performed By: #### 5 7021-8 ####BHANU FLEMINGMOJOSEFA L ([id number])[facility] ([facility])41543 [place] [address] Neutrophils (Bld) [#/Vol] 3.41 x10*3/uL Normal 1.20-7.70 [facility] Comment on above: Result Comment: Perc ent differential counts (%) should be interpreted in the context of the absolute cell counts (cells/uL). Performed By: #### 5 7021-8 ####BHANU FLEMINGMOTZER L ([id number])[facility] ([facility])28714 [place] [address] Neutrophils/100 WBC (Bld) 61.5 % Normal 40.0-80.0 [facility] Comment on above: Performed By: #### 5 7021-8 ####BHANU Treviño ([id number])[facility] ([facility])[address]66 [place] [address] Nucleated RBC/100 WBC (Bld) [Ratio] 0.0 /100 WBCs Normal 0.0-0.0 [facility] Comment on above: Performed By: #### 5 7021-8 ####BHANU Treviño ([id number])[facility] ([facility])[address]97 [place] [address] Platelets (Bld) [#/Vol] 347 x10*3/uL Normal 150-450 [facility] Comment on above: Performed By: #### 5 7021-8 ####BHANU Treviño ([id number])[facility] ([facility])[id number] [place] [address] RBC (Bld) [#/Vol] 3.97 x10*6/uL Low 4.50-5.90 [facility] Comment on above: Performed By: #### 5 7021-8 ####BHANU Treviño ([id number])[facility] ([facility])[address]407 [place] [address] WBC (Bld) [#/Vol] 5.5 x10*3/uL Normal 4.4-11.3 [facility] Comment on above: Performed By: #### 5 7021-8 ####BHANU Treviño ([id number])[facility] ([facility])[id number] [place] [address] Glucose Test strip manual (B ld) [Mass/Vol]on 02-02-2025 Glucose [Mass/Vol] 94 mg/dL Normal 74-99 [facility] Comment on above: Performed By: #### 2 341-6 ####HBANU Treviño ([id number])[facility] ([facility])[address]6484 [place] [address] Glucose [Mass/Vol] 107 mg/dL High 74-99 [facility] Comment on above: Performed By: #### 2 341-6 ####BHANU Treviño ([id number])[facility] ([facility])[address]96 [place] [address] Prealbuminon 02-02-2025 Prealbumin [Mass/Vol] 7.5 mg/dL Low 18.0-40.0 [facility] Comment on above: Performed By: #### 1 4338-8 ####BHANU Treviño ([id number])[facility] ([facility])46504 [place] [address] Renal function 2000 panelon 02-02-2025 Albumin BCP dye [Mass/Vol] 2.4 g/dL Low 3.4-5.0 [facility] Comment on above: Performed By: #### 2 4362-6 ####BHANU Treviño ([id number])[facility] ([facility])77267 [place] [address] Anion gap [Moles/Vol] 12 mmol/L Normal 10-20 [facility] Comment on above: Performed By: #### 2 4362-6 ####BHANU Treviño ([id number])[facility] ([facility])73074 [place] [address] Calcium [Mass/Vol] 7.9 mg/dL Low 8.6-10.6 [facility] Comment on above: Performed By: #### 2 4362-6 ####BHANU Treviño ([id number])[facility] ([facility])[address]03 [place] [address] Chloride [Moles/Vol] 107 mmol/L Normal 98-107 [facility] Comment on above: Performed By: #### 2 4362-6 ####BHANU Treviño ([id number])[facility] ([facility])[address]29 [place] [address] CO2 [Moles/Vol] 28 mmol/L Normal 21-32 [facility] Comment on above: Performed By: #### 2 4362-6 ####BHANU Treviño ([id number])[facility] ([facility])55192 [place] [address] Creatinine [Mass/Vol] 1.19 mg/dL Normal 0.50-1.30 [facility] Comment on above: Performed By: #### 2 4362-6 ####BHANU Treviño ([id number])[facility] ([facility])[address]321 [place] [address] Glomerular filtration rate/1.73 sq M.predicted 74 mL/min/1.73m*2 Normal >60 [facility] Comment on above: Result Comment: Calc ulations of estimated GFR are performed using the 2020 CKD-EPI Study Refit equation without the race variable for the IDMS-Traceable creatinine methods.https://jasn.asnjournals.org/content//A SN.3660726157 Performed By: #### 2 4362-6 ####BHANU Treviño ([id number])[facility] ([facility])60673 [place] [address] Glucose [Mass/Vol] 85 mg/dL Normal 74-99 [facility] Comment on above: Performed By: #### 2 4362-6 ####BHANU Treviño ([id number])[facility] ([facility])[address]56 [place] [address] Phosphate [Mass/Vol] 2.8 mg/dL Normal 2.5-4.9 [facility] Comment on above: Performed By: #### 2 4362-6 ####BHANU Treviño (56881)[facility] ([facility])10459 [place] [address] Potassium [Moles/Vol] 4.6 mmol/L Normal 3.5-5.3 [facility] Comment on above: Performed By: #### 2 4362-6 ####BHANU Treviño ([id number])[facility] ([facility])[address]606 [place] [address] Sodium [Moles/Vol] 142 mmol/L Normal 136-145 [facility] Comment on above: Performed By: #### 2 4362-6 ####BHANU Treviño ([id number])[facility] ([facility])42570 [place] [address] Urea nitrogen [Mass/Vol] 15 mg/dL Normal 6-23 [facility] Comment on above: Performed By: #### 2 4362-6 ####BHANU Treviño ([id number])[facility] ([facility])[address]779 [place] [address] Basic metabolic 2000 panelon 02-01-2025 Anion gap [Moles/Vol] 13 mmol/L Normal 10-20 [facility] Comment on above: Performed By: #### 2 4321-2 ####BHANU Treviño ([id number])[facility] ([facility])46648 [place] [address] Calcium [Mass/Vol] 7.9 mg/dL Low 8.6-10.6 [facility] Comment on above: Performed By: #### 2 4321-2 ####BHANU Treviño ([id number])[facility] ([facility])[address]3896 [place] [address] Chloride [Moles/Vol] 106 mmol/L Normal 98-107 [facility] Comment on above: Performed By: #### 2 4321-2 ####BHANU Treviño ([id number])[facility] ([facility])[address]2894 [place] [address] CO2 [Moles/Vol] 29 mmol/L Normal 21-32 [facility] Comment on above: Performed By: #### 2 4321-2 ####BHANU Treviño ([id number])[facility] ([facility])36236 [place] [address] Creatinine [Mass/Vol] 1.35 mg/dL High 0.50-1.30 [facility] Comment on above: Performed By: #### 2 4321-2 ####BHANU Treviño ([id number])[facility] ([facility])[address]13 [place] [address] Glomerular filtration rate/1.73 sq M.predicted 64 mL/min/1.73m*2 Normal >60 [facility] Comment on above: Result Comment: Calc ulations of estimated GFR are performed using the 2020 CKD-EPI Study Refit equation without the race variable for the IDMS-Traceable creatinine methods.https://jasn.asnjournals.org/content/early//A SN.5806354745 Performed By: #### 2 4321-2 ####BHANU Treviño ([id number])[facility] ([facility])17868 [place] [address] Glucose [Mass/Vol] 81 mg/dL Normal 74-99 [facility] Comment on above: Performed By: #### 2 4321-2 ####BHANU GREGORY L ([id number])[facility] ([facility])68797 [place] [address] Potassium [Moles/Vol] 4.5 mmol/L Normal 3.5-5.3 [facility] Comment on above: Performed By: #### 2 4321-2 ####BHANU GREGORY L ([id number])[facility] ([facility])38084 [place] [address] Sodium [Moles/Vol] 143 mmol/L Normal 136-145 [facility] Comment on above: Performed By: #### 2 4321-2 ####BHANU GREGORY L ([id number])[facility] ([facility])34967 [place] [address] Urea nitrogen [Mass/Vol] 15 mg/dL Normal 6-23 [facility] Comment on above: Performed By: #### 2 4321-2 ####BHANU GREGORY L (89705)[facility] ([facility])83890 [place] [address] Blood type and Indirect anti body screen panel (Bld)on 02-01-2025 ABO group Nom (Bld) A Normal [facility] Comment on above: Performed By: #### 3 4532-2 ####BHANU Treviño ([id number])[facility] ([facility])[address]806 [facility] [place] [address] Blood group antibody screen Ql Negative [facility] Comment on above: Performed By: #### 3 4532-2 ####BHANU Treviño (68137)[facility] ([facility])[address] [place] [address] D Ag Ql (Bld) Positive [facility] Comment on above: Performed By: #### 3 4532-2 ####BHANU Treviño (06213)[facility] ([facility])[address]72 [facility] [place] [address] CBC panel Auto (Bld)on 02-01 Erythrocyte distribution width (RBC) [Ratio] 19.1 % High 11.5-14.5 [facility] Comment on above: Performed By: #### 5 8410-2 ####BHANU Treviño ([id number])[facility] ([facility])[id number] [place] [address] Hematocrit (Bld) [Volume fraction] 25.0 % Low 41.0-52.0 [facility] Comment on above: Performed By: #### 5 8410-2 ####BHANU Treviño ([id number])[facility] ([facility])[address] [place] [address] Hemoglobin (Bld) [Mass/Vol] 8.0 g/dL Low 13.5-17.5 [facility] Comment on above: Performed By: #### 5 8410-2 ####BHANU Treviño ([id number])[facility] ([facility])45771 [place] [address] MCH (RBC) [Entitic mass] 25.2 pg Low 26.0-34.0 [facility] Comment on above: Performed By: #### 5 8410-2 ####BHANU Treviño ([id number])[facility] ([facility])03025 [place] [address] MCHC (RBC) [Mass/Vol] 32.0 g/dL Normal 32.0-36.0 [facility] Comment on above: Performed By: #### 5 8410-2 ####BHANU GREGORY L ([id number])[facility] ([facility])98390 [place] [address] MCV (RBC) [Entitic vol] 79 fL Low 80-100 [facility] Comment on above: Performed By: #### 5 8410-2 ####BHANU Treviño ([id number])[facility] ([facility])95947 [place] [address] Nucleated RBC/100 WBC (Bld) [Ratio] 0.0 /100 WBCs Normal 0.0-0.0 [facility] Comment on above: Performed By: #### 5 8410-2 ####BHANU Treviño ([id number])[facility] ([facility])71074 [place] [address] Platelets (Bld) [#/Vol] 433 x10*3/uL Normal 150-450 [facility] Comment on above: Performed By: #### 5 8410-2 ####BHANU GREGORY L ([id number])[facility] ([facility])54334 [place] [address] RBC (Bld) [#/Vol] 3.18 x10*6/uL Low 4.50-5.90 [facility] Comment on above: Performed By: #### 5 8410-2 ####BHANU GREGORY L ([id number])[facility] ([facility])91073 [place] [address] WBC (Bld) [#/Vol] 6.9 x10*3/uL Normal 4.4-11.3 [facility] Comment on above: Performed By: #### 5 8410-2 ####BHANU Treviño ([id number])[facility] ([facility])61189 [place] [address] Glucose Test strip manual (B ld) [Mass/Vol]on 02-01-2025 Glucose [Mass/Vol] 98 mg/dL Normal 74-99 [facility] Comment on above: Performed By: #### 2 341-6 ####BHANU Trevñio ([id number])[facility] ([facility])[id number] [place] [address] Glucose [Mass/Vol] 127 mg/dL High 74-99 [facility] Comment on above: Performed By: #### 2 341-6 ####BHANU Treviño ([id number])[facility] ([facility])70649 [place] [address] Glucose [Mass/Vol] 110 mg/dL High 74-99 [facility] Comment on above: Performed By: #### 2 341-6 ####BHANU Treviño ([id number])[facility] ([facility])84037 [place] [address] CBC W Auto Differential pane l (Bld)on 01-31-2025 Basophils (Bld) [#/Vol] 0.04 x10*3/uL Normal 0.00-0.10 [facility] Comment on above: Performed By: #### 5 7021-8 ####BHANU Treviño ([id number])[facility] ([facility])54439 [place] [address] Basophils/100 WBC (Bld) 0.5 % Normal 0.0-2.0 [facility] Comment on above: Performed By: #### 5 7021-8 ####BHANU Treviño ([id number])[facility] ([facility])[id number] [place] [address] Eosinophils (Bld) [#/Vol] 0.01 x10*3/uL Normal 0.00-0.70 [facility] Comment on above: Performed By: #### 5 7021-8 ####BHANU Treviño ([id number])[facility] ([facility])29099 [place] [address] Eosinophils/100 WBC (Bld) 0.1 % Normal 0.0-6.0 [facility] Comment on above: Performed By: #### 5 7021-8 ####BHANU Treviño ([id number])[facility] ([facility])[id number] [place] [address] Erythrocyte distribution width (RBC) [Ratio] 19.6 % High 11.5-14.5 [facility] Comment on above: Performed By: #### 5 7021-8 ####BHANU Treviño ([id number])[facility] ([facility])[address] [place] [address] Hematocrit (Bld) [Volume fraction] 21.9 % Low 41.0-52.0 [facility] Comment on above: Performed By: #### 5 7021-8 ####BHANU Treviño ([id number])[facility] ([facility])[address] [place] [address] Hemoglobin (Bld) [Mass/Vol] 7.1 g/dL Low 13.5-17.5 [facility] Comment on above: Performed By: #### 5 7021-8 ####BHANU Treviño ([id number])[facility] ([facility])[id number] [place] [address] Immature granulocytes (Bld) [#/Vol] 0.06 x10*3/uL Normal 0.00-0.70 [facility] Comment on above: Performed By: #### 5 7021-8 ####BHANU Treviño (85735)[facility] ([facility])[address] [place] [address] Immature granulocytes/100 WBC (Bld) 0.7 % Normal 0.0-0.9 [facility] Comment on above: Result Comment: Christine ture Granulocyte Count (IG) includes promyelocytes, myelocytes and metamyelocytes but does not include bands. Percent differential counts (%) should be interpreted in the context of the absolute cell counts (cells/UL). Performed By: #### 5 7021-8 ####BHANU Treviño ([id number])[facility] ([facility])77084 [place] [address] Lymphocytes (Bld) [#/Vol] 1.27 x10*3/uL Normal 1.20-4.80 [facility] Comment on above: Performed By: #### 5 7021-8 ####BHANU Treviño ([id number])[facility] ([facility])80997 [place] [address] Lymphocytes/100 WBC (Bld) 14.6 % Normal 13.0-44.0 [facility] Comment on above: Performed By: #### 5 7021-8 ####BHANU Treviño ([id number])[facility] ([facility])56560 [place] [address] MCH (RBC) [Entitic mass] 24.1 pg Low 26.0-34.0 [facility] Comment on above: Performed By: #### 5 7021-8 ####BHANU Treviño ([id number])[facility] ([facility])30002 [place] [address] MCHC (RBC) [Mass/Vol] 32.4 g/dL Normal 32.0-36.0 [facility] Comment on above: Performed By: #### 5 7021-8 ####BHANU Treviño ([id number])[facility] ([facility])74524 [place] [address] MCV (RBC) [Entitic vol] 75 fL Low 80-100 [facility] Comment on above: Performed By: #### 5 7021-8 ####BHANU Treviño (58745)[facility] ([facility])17454 [place] [address] Monocytes (Bld) [#/Vol] 0.94 x10*3/uL Normal 0.10-1.00 [facility] Comment on above: Performed By: #### 5 7021-8 ####BHANU Treviño ([id number])[facility] ([facility])27753 [place] [address] Monocytes/100 WBC (Bld) 10.8 % Normal 2.0-10.0 [facility] Comment on above: Performed By: #### 5 7021-8 ####BHANU Treviño (69513)[facility] ([facility])06991 [place] [address] Neutrophils (Bld) [#/Vol] 6.39 x10*3/uL Normal 1.20-7.70 [facility] Comment on above: Result Comment: Perc ent differential counts (%) should be interpreted in the context of the absolute cell counts (cells/uL). Performed By: #### 5 7021-8 ####BHANU Treviño ([id number])[facility] ([facility])[address]1352 [place] [address] Neutrophils/100 WBC (Bld) 73.3 % Normal 40.0-80.0 [facility] Comment on above: Performed By: #### 5 7021-8 ####BHANU Treviño (91588)[facility] ([facility])[address]1589 [place] [address] Nucleated RBC/100 WBC (Bld) [Ratio] 0.0 /100 WBCs Normal 0.0-0.0 [facility] Comment on above: Performed By: #### 5 7021-8 ####BHANU Treviño (43553)[facility] ([facility])35334 [place] [address] Platelets (Bld) [#/Vol] 455 x10*3/uL High 150-450 [facility] Comment on above: Performed By: #### 5 7021-8 ####BHANU Treviño ([id number])[facility] ([facility])94327 [place] [address] RBC (Bld) [#/Vol] 2.94 x10*6/uL Low 4.50-5.90 [facility] Comment on above: Performed By: #### 5 7021-8 ####BHANU Treviño ([id number])[facility] ([facility])56986 [place] [address] WBC (Bld) [#/Vol] 8.7 x10*3/uL Normal 4.4-11.3 [facility] Comment on above: Performed By: #### 5 7021-8 ####BHANU Treviño (91408)[facility] ([facility])47397 [place] [address] Glucose Test strip manual (B ld) [Mass/Vol]on 01-31-2025 Glucose [Mass/Vol] 97 mg/dL Normal 74-99 [facility] Comment on above: Performed By: #### 2 341-6 ####BHANU Treviño ([id number])[facility] ([facility])[id number] [place] [address]652 Glucose [Mass/Vol] 107 mg/dL High 74-99 [facility] Comment on above: Performed By: #### 2 341-6 ####BHANU Treviño ([id number])[facility] ([facility])[address] [place] [address] Magnesiumon 01-31-2025 Magnesium [Mass/Vol] 2.07 mg/dL Normal 1.60-2.40 [facility] Comment on above: Performed By: #### 1 9123-9 ####BHANU Treviño ([id number])[facility] ([facility])[address] [place] [address] Renal function 2000 panelon 01-31-2025 Albumin BCP dye [Mass/Vol] 2.6 g/dL Low 3.4-5.0 [facility] Comment on above: Performed By: #### 2 4362-6 ####BHANU Treviño ([id number])[facility] ([facility])[address] [place] [address] Anion gap [Moles/Vol] 13 mmol/L Normal 10-20 [facility] Comment on above: Performed By: #### 2 4362-6 ####BHANU Treviño ([id number])[facility] ([facility])[address] [place] [address] Calcium [Mass/Vol] 8.2 mg/dL Low 8.6-10.6 [facility] Comment on above: Performed By: #### 2 4362-6 ####BHANU GREGORY L ([id number])[facility] ([facility])[address] [place] [address] Chloride [Moles/Vol] 102 mmol/L Normal 98-107 [facility] Comment on above: Performed By: #### 2 4362-6 ####BHANU Treviño ([id number])[facility] ([facility])[address] [place] [address] CO2 [Moles/Vol] 29 mmol/L Normal 21-32 [facility] Comment on above: Performed By: #### 2 4362-6 ####BHANU Treviño ([id number])[facility] CENTER)[address] [place] [address] Creatinine [Mass/Vol] 1.04 mg/dL Normal 0.50-1.30 [facility] Comment on above: Performed By: #### 2 4362-6 ####BHANU Treviño ([id number])[facility] ([facility])[address] [place] [address] Glomerular filtration rate/1.73 sq M.predicted 87 mL/min/1.73m*2 Normal >60 [facility] Comment on above: Result Comment: Calc ulations of estimated GFR are performed using the 2020 CKD-EPI Study Refit equation without the race variable for the IDMS-Traceable creatinine methods.https://jasn.asnjournals.org/content//A SN.4346644434 Performed By: #### 2 4362-6 ####BHANU Treviño ([id number])[facility] ([facility])[address] [facility] [place] [address] Glucose [Mass/Vol] 104 mg/dL High 74-99 [facility] Comment on above: Performed By: #### 2 4362-6 ####BHANU Treviño ([id number])[facility] ([facility])[address] [facility] [place] [address] Phosphate [Mass/Vol] 3.6 mg/dL Normal 2.5-4.9 [facility] Comment on above: Performed By: #### 2 4362-6 ####BHANU Treviño ([id number])[facility] ([facility])[address] [place] [address] Potassium [Moles/Vol] 4.4 mmol/L Normal 3.5-5.3 [facility] Comment on above: Performed By: #### 2 4362-6 ####BHANU Treviño ([id number])[facility] ([facility])[address] [place] [address] Sodium [Moles/Vol] 140 mmol/L Normal 136-145 [facility] Comment on above: Performed By: #### 2 4362-6 ####BHANU Treviño ([id number])[facility] ([facility])[address] [facility] [place] [address] Urea nitrogen [Mass/Vol] 12 mg/dL Normal 6-23 [facility] Comment on above: Performed By: #### 2 4362-6 ####BHANU Treviño ([id number])[facility] ([facility])[address] [place] [address] Bacteria identifiedon 2024 Bacteria identified Cx Nom (Unsp spec) Abnormal [facility] Comment on above: Performed By: #### 6 463-4 ####BHANU Treviño ([id number])[facility] ([facility])[address] [facility] [place] [address] Bacteria identified Cx Nom (Unsp spec) Abnormal [facility] Comment on above: Performed By: #### 6 463-4 ####BHANU Treviño ([id number])[facility] ([facility])[address] [place] [address] CBC W Auto Differential pane l (Bld)on 01-30-2025 Basophils (Bld) [#/Vol] 0.05 x10*3/uL Normal 0.00-0.10 [facility] Comment on above: Performed By: #### 5 7021-8 ####BHANU Treviño ([id number])[facility] ([facility])[address] [place] [address] Basophils/100 WBC (Bld) 0.7 % Normal 0.0-2.0 [facility] Comment on above: Performed By: #### 5 7021-8 ####BHANU Treviño ([id number])[facility] ([facility])[id number] [place] [address] Eosinophils (Bld) [#/Vol] 0.14 x10*3/uL Normal 0.00-0.70 [facility] Comment on above: Performed By: #### 5 7021-8 ####BHANU Treviño ([id number])[facility] ([facility])[address] [place] [address] Eosinophils/100 WBC (Bld) 2.0 % Normal 0.0-6.0 [facility] Comment on above: Performed By: #### 5 7021-8 ####BHANU Treviño ([id number])[facility] ([facility])[id number] [place] [address] Erythrocyte distribution width (RBC) [Ratio] 19.9 % High 11.5-14.5 [facility] Comment on above: Performed By: #### 5 7021-8 ####BHANU Treviño ([id number])[facility] ([facility])[address] [place] [address] Hematocrit (Bld) [Volume fraction] 26.3 % Low 41.0-52.0 [facility] Comment on above: Performed By: #### 5 7021-8 ####BHANU Treviño ([id number])[facility] ([facility])[address]88 [place] [address] Hemoglobin (Bld) [Mass/Vol] 8.3 g/dL Low 13.5-17.5 [facility] Comment on above: Performed By: #### 5 7021-8 ####BHANU GREGORY L ([id number])[facility] ([facility])[address] [place] [address] Immature granulocytes (Bld) [#/Vol] 0.02 x10*3/uL Normal 0.00-0.70 [facility] Comment on above: Performed By: #### 5 7021-8 ####BHANU GREGORY L ([id number])[facility] ([facility])[address] [place] [address] Immature granulocytes/100 WBC (Bld) 0.3 % Normal 0.0-0.9 [facility] Comment on above: Result Comment: Christine ture Granulocyte Count (IG) includes promyelocytes, myelocytes and metamyelocytes but does not include bands. Percent differential counts (%) should be interpreted in the context of the absolute cell counts (cells/UL). Performed By: #### 5 7021-8 ####BHANU GREGORY L ([id number])[facility] ([facility])[address] [place] [address] Lymphocytes (Bld) [#/Vol] 1.09 x10*3/uL Low 1.20-4.80 [facility] Comment on above: Performed By: #### 5 7021-8 ####BHANU GREGORY L ([id number])[facility] ([facility])[address]82 [place] [address] Lymphocytes/100 WBC (Bld) 15.4 % Normal 13.0-44.0 [facility] Comment on above: Performed By: #### 5 7021-8 ####BHANU FLEMINGMOMELANIER L ([id number])[facility] ([facility])[address] [place] [address] MCH (RBC) [Entitic mass] 24.1 pg Low 26.0-34.0 [facility] Comment on above: Performed By: #### 5 7021-8 ####BHANU Treviño ([id number])[facility] ([facility])[address]896 [place] [address] MCHC (RBC) [Mass/Vol] 31.6 g/dL Low 32.0-36.0 [facility] Comment on above: Performed By: #### 5 7021-8 ####BHANU Trevioñ ([id number])[facility] ([facility])[address] [place] [address] MCV (RBC) [Entitic vol] 76 fL Low 80-100 [facility] Comment on above: Performed By: #### 5 7021-8 ####BHANU Treviño ([id number])[facility] ([facility])[address] [place] [address] Monocytes (Bld) [#/Vol] 0.89 x10*3/uL Normal 0.10-1.00 [facility] Comment on above: Performed By: #### 5 7021-8 ####BHANU Terviño ([id number])[facility] ([facility])[id number] [place] [address] Monocytes/100 WBC (Bld) 12.6 % Normal 2.0-10.0 [facility] Comment on above: Performed By: #### 5 7021-8 ####BHANU Treviño ([id number])[facility] ([facility])[address] [place] [address] Neutrophils (Bld) [#/Vol] 4.87 x10*3/uL Normal 1.20-7.70 [facility] Comment on above: Result Comment: Perc ent differential counts (%) should be interpreted in the context of the absolute cell counts (cells/uL). Performed By: #### 5 7021-8 ####BHANU Treviño ([id number])[facility] ([facility])[address] [place] [address] Neutrophils/100 WBC (Bld) 69.0 % Normal 40.0-80.0 [facility] Comment on above: Performed By: #### 5 7021-8 ####BHANU GREGORY L (82900)[facility] ([facility])[address]50 [place] [address] Nucleated RBC/100 WBC (Bld) [Ratio] 0.0 /100 WBCs Normal 0.0-0.0 [facility] Comment on above: Performed By: #### 5 7021-8 ####BHANU GREGORY L ([id number])[facility] ([facility])[address] [place] [address] Platelets (Bld) [#/Vol] 492 x10*3/uL High 150-450 [facility] Comment on above: Performed By: #### 5 7021-8 ####BHANU GREGORY L ([id number])[facility] ([facility])[address] [place] [address] RBC (Bld) [#/Vol] 3.45 x10*6/uL Low 4.50-5.90 [facility] Comment on above: Performed By: #### 5 7021-8 ####BHANU GREGORY L ([id number])[facility] ([facility])[address]18 [place] [address] WBC (Bld) [#/Vol] 7.1 x10*3/uL Normal 4.4-11.3 [facility] Comment on above: Performed By: #### 5 7021-8 ####BHANU GREGORY L ([id number])[facility] ([facility])[address]83 [place] [address] Comprehensive metabolic 2000 panelon 01-30-2025 Albumin BCP dye [Mass/Vol] 2.3 g/dL Low 3.4-5.0 [facility] Comment on above: Performed By: #### 2 4323-8 ####BHANU GREGORY L ([id number])[facility] ([facility])[address] [place] [address] ALP [Catalytic activity/Vol] 80 U/L Normal 33-120 [facility] Comment on above: Performed By: #### 2 4323-8 ####BHANU Treviño ([id number])[facility] ([facility])[address]66 [place] [address] ALT With P-5'-P [Catalytic activity/Vol] 29 U/L Normal 10-52 [facility] Comment on above: Result Comment: Sydni ents treated with Sulfasalazine may generate falsely decreased results for ALT. Performed By: #### 2 4323-8 ####BHANU Treviño ([id number])[facility] ([facility])[address]35 [place] [address] Anion gap [Moles/Vol] 13 mmol/L Normal 10-20 [facility] Comment on above: Performed By: #### 2 4323-8 ####BHANU Treviño ([id number])[facility] ([facility])[address]258 [place] [address] AST With P-5'-P [Catalytic activity/Vol] 33 U/L Normal 9-39 [facility] Comment on above: Performed By: #### 2 4323-8 ####BHANU Treviño ([id number])[facility] ([facility])[address] [place] [address] Bilirubin [Mass/Vol] 0.4 mg/dL Normal 0.0-1.2 [facility] Comment on above: Performed By: #### 2 4323-8 ####BHANU Treivño (32061)[facility] ([facility])[address]235 [place] [address] Calcium [Mass/Vol] 8.4 mg/dL Low 8.6-10.6 [facility] Comment on above: Performed By: #### 2 4323-8 ####BHANU Treviño (08144)[facility] ([facility])[address]314 [place] [address] Chloride [Moles/Vol] 102 mmol/L Normal 98-107 [facility] Comment on above: Performed By: #### 2 4323-8 ####BHANU Treviño (35374)[facility] ([facility])[address]67 [place] [address] CO2 [Moles/Vol] 29 mmol/L Normal 21-32 [facility] Comment on above: Performed By: #### 2 4323-8 ####BHANU Treviño ([id number])[facility] ([facility])[address]48 [place] [address] Creatinine [Mass/Vol] 1.06 mg/dL Normal 0.50-1.30 [facility] Comment on above: Performed By: #### 2 4323-8 ####BHANU Treviño ([id number])[facility] ([facility])[address]26 [place] [address] Glomerular filtration rate/1.73 sq M.predicted 85 mL/min/1.73m*2 Normal >60 [facility] Comment on above: Result Comment: Calc ulations of estimated GFR are performed using the 2020 CKD-EPI Study Refit equation without the race variable for the IDMS-Traceable creatinine methods.https://jasn.asnjournals.org/content/early//A SN.5349599130 Performed By: #### 2 4323-8 ####BHANU Treviño (79333)[facility] ([facility])[address]38 [place] [address] Glucose [Mass/Vol] 91 mg/dL Normal 74-99 [facility] Comment on above: Performed By: #### 2 4323-8 ####BHANU Treviño (24613)[facility] ([facility])13992 [place] [address] Potassium [Moles/Vol] 4.5 mmol/L Normal 3.5-5.3 [facility] Comment on above: Performed By: #### 2 4323-8 ####BHANU Treviño ([id number])[facility] ([facility])29395 [place] [address] Protein [Mass/Vol] 6.1 g/dL Low 6.4-8.2 [facility] Comment on above: Performed By: #### 2 4323-8 ####BHANU Treviño (01011)[facility] ([facility])[id number] [place] [address] Sodium [Moles/Vol] 139 mmol/L Normal 136-145 [facility] Comment on above: Performed By: #### 2 4323-8 ####BHANU Treviño (78561)[facility] ([facility])[address] [place] [address] Urea nitrogen [Mass/Vol] 11 mg/dL Normal 6-23 [facility] Comment on above: Performed By: #### 2 4323-8 ####BHANU Treviño ([id number])[facility] ([facility])[address] [place] [address] Fungus identifiedon 01-31-20 25 Fungus identified Cx Nom (Unsp spec) Abnormal [facility] Comment on above: Performed By: #### 5 80-1 ####BHANU Treviño (69448)[facility] ([facility])[id number] [place] [address] Fungus identified Cx Nom (Unsp spec) Abnormal [facility] Comment on above: Performed By: #### 5 80-1 ####BHANU Treviño (05455)[facility] ([facility])[id number] [place] [address] Glucose Test strip manual (B ld) [Mass/Vol]on 01-30-2025 Glucose [Mass/Vol] 129 mg/dL High 74-99 [facility] Comment on above: Performed By: #### 2 341-6 ####BHANU Treviño ([id number])[facility] ([facility])[address] [place] [address] Magnesiumon 01-30-2025 Magnesium [Mass/Vol] 2.05 mg/dL Normal 1.60-2.40 [facility] Comment on above: Performed By: #### 1 9123-9 ####BHANU Treviño ([id number])[facility] ([facility])[address]347 [place] [address] Surgical pathology studyon 0 01-30-2025 Surgical pathology study [facility] Comment on above: Order Comment: Pre-o p diagnosis:Hidradenitis suppurativa [L73.2]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] Blood type and Indirect anti body screen panel (Bld)on 01-29-2025 ABO group Nom (Bld) A Normal [facility] Comment on above: Performed By: #### 3 4532-2 ####BHANU Treviño ([id number])[facility] ([facility])[address] [place] [address] Blood group antibody screen Ql Negative [facility] Comment on above: Performed By: #### 3 4532-2 ####BHANU Treviño ([id number])[facility] ([facility])[address]75 [place] [address] D Ag Ql (Bld) Positive [facility] Comment on above: Performed By: #### 3 4532-2 ####BHANU Treviño ([id number])[facility] ([facility])[address] [place] [address] CBC W Auto Differential pane l (Bld)on 01-29-2025 Basophils (Bld) [#/Vol] 0.07 x10*3/uL Normal 0.00-0.10 [facility] Comment on above: Performed By: #### 5 7021-8 ####BHANU Treviño (15995)[facility] ([facility])[address]84 [place] [address] Basophils/100 WBC (Bld) 0.9 % Normal 0.0-2.0 [facility] Comment on above: Performed By: #### 5 7021-8 ####BHANU Treviño (45059)[facility] ([facility])[id number] [place] [address] Eosinophils (Bld) [#/Vol] 0.16 x10*3/uL Normal 0.00-0.70 [facility] Comment on above: Performed By: #### 5 7021-8 ####BHANU Treviño ([id number])[facility] ([facility])[address] [place] [address] Eosinophils/100 WBC (Bld) 2.0 % Normal 0.0-6.0 [facility] Comment on above: Performed By: #### 5 7021-8 ####BHANU Treviño ([id number])[facility] ([facility])[address] [place] [address] Erythrocyte distribution width (RBC) [Ratio] 20.0 % High 11.5-14.5 [facility] Comment on above: Performed By: #### 5 7021-8 ####BHANU Treviño (19686)[facility] ([facility])[address] [place] [address] Hematocrit (Bld) [Volume fraction] 29.4 % Low 41.0-52.0 [facility] Comment on above: Performed By: #### 5 7021-8 ####BHANU Treviño (49086)[facility] ([facility])[id number] [place] [address] Hemoglobin (Bld) [Mass/Vol] 8.8 g/dL Low 13.5-17.5 [facility] Comment on above: Performed By: #### 5 7021-8 ####BHANU Treviño (54569)[facility] ([facility])[address] [place] [address] Immature granulocytes (Bld) [#/Vol] 0.03 x10*3/uL Normal 0.00-0.70 [facility] Comment on above: Performed By: #### 5 7021-8 ####BHANU Treviño (06297)[facility] ([facility])[address]805 [place] [address] Immature granulocytes/100 WBC (Bld) 0.4 % Normal 0.0-0.9 [facility] Comment on above: Result Comment: Christine ture Granulocyte Count (IG) includes promyelocytes, myelocytes and metamyelocytes but does not include bands. Percent differential counts (%) should be interpreted in the context of the absolute cell counts (cells/UL). Performed By: #### 5 7021-8 ####BHANU Treviño (02513)[facility] ([facility])[address]15 [place] [address] Lymphocytes (Bld) [#/Vol] 1.25 x10*3/uL Normal 1.20-4.80 [facility] Comment on above: Performed By: #### 5 7021-8 ####BHANU Treviño (78416)[facility] ([facility])10223 [place] [address] Lymphocytes/100 WBC (Bld) 15.7 % Normal 13.0-44.0 [facility] Comment on above: Performed By: #### 5 7021-8 ####BHANU Treviño (80894)[facility] ([facility])[address]797 [place] [address] MCH (RBC) [Entitic mass] 23.7 pg Low 26.0-34.0 [facility] Comment on above: Performed By: #### 5 7021-8 ####BHANU Treviño (17659)[facility] ([facility])[address]223 [place] [address] MCHC (RBC) [Mass/Vol] 29.9 g/dL Low 32.0-36.0 [facility] Comment on above: Performed By: #### 5 7021-8 ####BHANU Treviño (92501)[facility] ([facility])[address]10 [place] [address] MCV (RBC) [Entitic vol] 79 fL Low 80-100 [facility] Comment on above: Performed By: #### 5 7021-8 ####BHANU Treviño (61971)[facility] ([facility])[address]3696 [place] [address] Monocytes (Bld) [#/Vol] 0.98 x10*3/uL Normal 0.10-1.00 [facility] Comment on above: Performed By: #### 5 7021-8 ####BHANU Treviño (65686)[facility] ([facility])[address]345 [place] [address] Monocytes/100 WBC (Bld) 12.3 % Normal 2.0-10.0 [facility] Comment on above: Performed By: #### 5 7021-8 ####BHANU Treviño (18223)[facility] ([facility])[address]26 [place] [address] Neutrophils (Bld) [#/Vol] 5.45 x10*3/uL Normal 1.20-7.70 [facility] Comment on above: Result Comment: Perc ent differential counts (%) should be interpreted in the context of the absolute cell counts (cells/uL). Performed By: #### 5 7021-8 ####BHANU Treviño (14656)[facility] ([facility])[address]1471 [place] [address] Neutrophils/100 WBC (Bld) 68.7 % Normal 40.0-80.0 [facility] Comment on above: Performed By: #### 5 7021-8 ####BHANU Treviño ([id number])[facility] ([facility])[address]69 [place] [address] Nucleated RBC/100 WBC (Bld) [Ratio] 0.0 /100 WBCs Normal 0.0-0.0 [facility] Comment on above: Performed By: #### 5 7021-8 ####BHANU Treviño (22270)[facility] ([facility])[address]65 [place] [address] Platelets (Bld) [#/Vol] 537 x10*3/uL High 150-450 [facility] Comment on above: Performed By: #### 5 7021-8 ####BHANU Treviño ([id number])[facility] ([facility])[address]370 [place] [address] RBC (Bld) [#/Vol] 3.72 x10*6/uL Low 4.50-5.90 [facility] Comment on above: Performed By: #### 5 7021-8 ####BHANU Treviño ([id number])[facility] ([facility])[address]50 [place] [address] WBC (Bld) [#/Vol] 7.9 x10*3/uL Normal 4.4-11.3 [facility] Comment on above: Performed By: #### 5 7021-8 ####BHANU Treviño ([id number])[facility] ([facility])[id number] [place] [address] Comprehensive metabolic 2000 panelon 01-29-2025 Albumin BCP dye [Mass/Vol] 2.4 g/dL Low 3.4-5.0 [facility] Comment on above: Performed By: #### 2 4323-8 ####BHANU Treviño ([id number])[facility] ([facility])[address] [place] [address] ALP [Catalytic activity/Vol] 70 U/L Normal 33-120 [facility] Comment on above: Performed By: #### 2 4323-8 ####BHANU Treviño ([id number])[facility] ([facility])[id number] [place] [address] ALT With P-5'-P [Catalytic activity/Vol] 28 U/L Normal 10-52 [facility] Comment on above: Result Comment: Sydni ents treated with Sulfasalazine may generate falsely decreased results for ALT. Performed By: #### 2 4323-8 ####BHANU Treviño ([id number])[facility] ([facility])[id number] [place] [address] Anion gap [Moles/Vol] 11 mmol/L Normal 10-20 [facility] Comment on above: Performed By: #### 2 4323-8 ####BHANU Treviño ([id number])[facility] ([facility])[id number] [place] [address] AST With P-5'-P [Catalytic activity/Vol] 28 U/L Normal 9-39 [facility] Comment on above: Performed By: #### 2 4323-8 ####BHANU Treviño ([id number])[facility] ([facility])[address] [place] [address] Bilirubin [Mass/Vol] 0.3 mg/dL Normal 0.0-1.2 [facility] Comment on above: Performed By: #### 2 4323-8 ####BHANU Treviño ([id number])[facility] ([facility])[address] [place] [address] Calcium [Mass/Vol] 8.2 mg/dL Low 8.6-10.6 [facility] Comment on above: Performed By: #### 2 4323-8 ####BHANU Treviño ([id number])[facility] ([facility])[address]644 [place] [address] Chloride [Moles/Vol] 102 mmol/L Normal 98-107 [facility] Comment on above: Performed By: #### 2 4323-8 ####BHANU GREGORY L ([id number])[facility] ([facility])[address]13 [place] [address] CO2 [Moles/Vol] 28 mmol/L Normal 21-32 [facility] Comment on above: Performed By: #### 2 4323-8 ####BHANU GREGORY L ([id number])[facility] ([facility])[address] [place] [address] Creatinine [Mass/Vol] 1.07 mg/dL Normal 0.50-1.30 [facility] Comment on above: Performed By: #### 2 4323-8 ####BHANU Treviño ([id number])[facility] ([facility])[address] [place] [address] Glomerular filtration rate/1.73 sq M.predicted 84 mL/min/1.73m*2 Normal >60 [facility] Comment on above: Result Comment: Calc ulations of estimated GFR are performed using the 2020 CKD-EPI Study Refit equation without the race variable for the IDMS-Traceable creatinine methods.https://jasn.asnjournals.org/content//A .0004671978 Performed By: #### 2 4323-8 ####BHANU Treviño ([id number])[facility] ([facility])[address] [place] [address] Glucose [Mass/Vol] 99 mg/dL Normal 74-99 [facility] Comment on above: Performed By: #### 2 4323-8 ####BHANU Treviño ([id number])[facility] ([facility])[address]51 [place] [address] Potassium [Moles/Vol] 4.2 mmol/L Normal 3.5-5.3 [facility] Comment on above: Performed By: #### 2 4323-8 ####BHANU GREGORY L ([id number])[facility] ([facility])[address]75 [place] [address] Protein [Mass/Vol] 6.4 g/dL Normal 6.4-8.2 [facility] Comment on above: Performed By: #### 2 4323-8 ####BHANU GREGORY L ([id number])[facility] ([facility])[address]663 [place] [address] Sodium [Moles/Vol] 137 mmol/L Normal 136-145 [facility] Comment on above: Performed By: #### 2 4323-8 ####BHANU GREGORY L ([id number])[facility] ([facility])[address]253 [place] [address] Urea nitrogen [Mass/Vol] 12 mg/dL Normal 6-23 [facility] Comment on above: Performed By: #### 2 4323-8 ####BHANU Treviño ([id number])[facility] ([facility])[address]37 [place] [address] Creatine kinaseon 01-29-2025 CK [Catalytic activity/Vol] 58 U/L Normal 0-325 [facility] Comment on above: Performed By: #### 2 157-6 ####BHANU Treviño ([id number])[facility] ([facility])[address]873 [place] [address] Magnesiumon 01-29-2025 Magnesium [Mass/Vol] 1.81 mg/dL Normal 1.60-2.40 [facility] Comment on above: Performed By: #### 1 9123-9 ####BHANU Treviño ([id number])[facility] ([facility])[address]997 [place] [address] CBC W Auto Differential pane l (Bld)on 01-28-2025 Basophils (Bld) [#/Vol] 0.07 x10*3/uL Normal 0.00-0.10 [facility] Comment on above: Performed By: #### 5 7021-8 ####BHANU Treviño ([id number])[facility] ([facility])[address]260 [place] [address] Basophils/100 WBC (Bld) 1.0 % Normal 0.0-2.0 [facility] Comment on above: Performed By: #### 5 7021-8 ####BHANU Treviño ([id number])[facility] ([facility])[address]97 [place] [address] Eosinophils (Bld) [#/Vol] 0.44 x10*3/uL Normal 0.00-0.70 [facility] Comment on above: Performed By: #### 5 7021-8 ####BHANU Treviño ([id number])[facility] ([facility])[address]88 [place] [address] Eosinophils/100 WBC (Bld) 6.0 % Normal 0.0-6.0 [facility] Comment on above: Performed By: #### 5 7021-8 ####BHANU Treviño ([id number])[facility] ([facility])[address] [place] [address] Erythrocyte distribution width (RBC) [Ratio] 19.7 % High 11.5-14.5 [facility] Comment on above: Performed By: #### 5 7021-8 ####BHANU Treviño ([id number])[facility] ([facility])[id number] [place] [address] Hematocrit (Bld) [Volume fraction] 26.4 % Low 41.0-52.0 [facility] Comment on above: Performed By: #### 5 7021-8 ####BHANU Treviño ([id number])[facility] ([facility])[address] [place] [address] Hemoglobin (Bld) [Mass/Vol] 8.5 g/dL Low 13.5-17.5 [facility] Comment on above: Performed By: #### 5 7021-8 ####BHANU Treviño ([id number])[facility] ([facility])[id number] [place] [address] Immature granulocytes (Bld) [#/Vol] 0.04 x10*3/uL Normal 0.00-0.70 [facility] Comment on above: Performed By: #### 5 7021-8 ####BHANU Treviño ([id number])[facility] ([facility])[id number] [place] [address] Immature granulocytes/100 WBC (Bld) 0.5 % Normal 0.0-0.9 [facility] Comment on above: Result Comment: Christine ture Granulocyte Count (IG) includes promyelocytes, myelocytes and metamyelocytes but does not include bands. Percent differential counts (%) should be interpreted in the context of the absolute cell counts (cells/UL). Performed By: #### 5 7021-8 ####BHANU Treviño ([id number])[facility] ([facility])[address]43 [place] [address] Lymphocytes (Bld) [#/Vol] 1.21 x10*3/uL Normal 1.20-4.80 [facility] Comment on above: Performed By: #### 5 7021-8 ####BHANU Treviño ([id number])[facility] ([facility])[address]92 [place] [address] Lymphocytes/100 WBC (Bld) 16.4 % Normal 13.0-44.0 [facility] Comment on above: Performed By: #### 5 7021-8 ####BHANU Treviño ([id number])[facility] ([facility])[address] [place] [address] MCH (RBC) [Entitic mass] 24.6 pg Low 26.0-34.0 [facility] Comment on above: Performed By: #### 5 7021-8 ####BHANU Treviño ([id number])[facility] ([facility])[address] [place] [address] MCHC (RBC) [Mass/Vol] 32.2 g/dL Normal 32.0-36.0 [facility] Comment on above: Performed By: #### 5 7021-8 ####BHANU Treviño ([id number])[facility] ([facility])[address] [place] [address] MCV (RBC) [Entitic vol] 77 fL Low 80-100 [facility] Comment on above: Performed By: #### 5 7021-8 ####BHANU Treviño ([id number])[facility] ([facility])[address] [place] [address] Monocytes (Bld) [#/Vol] 1.09 x10*3/uL High 0.10-1.00 [facility] Comment on above: Performed By: #### 5 7021-8 ####BHANU Treviño ([id number])[facility] ([facility])[id number] [place] [address] Monocytes/100 WBC (Bld) 14.8 % Normal 2.0-10.0 [facility] Comment on above: Performed By: #### 5 7021-8 ####BHANU Treviño ([id number])[facility] ([facility])[id number] [place] [address] Neutrophils (Bld) [#/Vol] 4.51 x10*3/uL Normal 1.20-7.70 [facility] Comment on above: Result Comment: Perc ent differential counts (%) should be interpreted in the context of the absolute cell counts (cells/uL). Performed By: #### 5 7021-8 ####BHANU Treviño ([id number])[facility] ([facility])[id number] [place] [address] Neutrophils/100 WBC (Bld) 61.3 % Normal 40.0-80.0 [facility] Comment on above: Performed By: #### 5 7021-8 ####BHANU Treviño ([id number])[facility] ([facility])[id number] [place] [address] Nucleated RBC/100 WBC (Bld) [Ratio] 0.0 /100 WBCs Normal 0.0-0.0 [facility] Comment on above: Performed By: #### 5 7021-8 ####BHANU Treviño ([id number])[facility] ([facility])[address]487 [place] [address] Platelets (Bld) [#/Vol] 620 x10*3/uL High 150-450 [facility] Comment on above: Performed By: #### 5 7021-8 ####BHANU GREGORY L ([id number])[facility] ([facility])[address]98 [place] [address] RBC (Bld) [#/Vol] 3.45 x10*6/uL Low 4.50-5.90 [facility] Comment on above: Performed By: #### 5 7021-8 ####BHANU Treviño ([id number])[facility] ([facility])[address]25 [place] [address] WBC (Bld) [#/Vol] 7.4 x10*3/uL Normal 4.4-11.3 [facility] Comment on above: Performed By: #### 5 7021-8 ####BHANU Treviño ([id number])[facility] ([facility])[address]00 [place] [address] Comprehensive metabolic 2000 panelon 01-28-2025 Albumin BCP dye [Mass/Vol] 2.3 g/dL Low 3.4-5.0 [facility] Comment on above: Performed By: #### 2 4323-8 ####BHANU Treviño ([id number])[facility] ([facility])[address]71 [place] [address] ALP [Catalytic activity/Vol] 72 U/L Normal 33-120 [facility] Comment on above: Performed By: #### 2 4323-8 ####BHANU Treviño ([id number])[facility] ([facility])[address]21 [place] [address] ALT With P-5'-P [Catalytic activity/Vol] 35 U/L Normal 10-52 [facility] Comment on above: Result Comment: Sydni ents treated with Sulfasalazine may generate falsely decreased results for ALT. Performed By: #### 2 4323-8 ####BHANU Treviño ([id number])[facility] ([facility])42831 [place] [address] Anion gap [Moles/Vol] 13 mmol/L Normal 10-20 [facility] Comment on above: Performed By: #### 2 4323-8 ####BHANU GREGORY L ([id number])[facility] ([facility])[address]64 [place] [address] AST With P-5'-P [Catalytic activity/Vol] 32 U/L Normal 9-39 [facility] Comment on above: Performed By: #### 2 4323-8 ####BHANU GREGORY L ([id number])[facility] ([facility])[address]100 [place] [address] Bilirubin [Mass/Vol] 0.3 mg/dL Normal 0.0-1.2 [facility] Comment on above: Performed By: #### 2 4323-8 ####BHANU GREGORY L (28086)[facility] ([facility])[address]202 [place] [address] Calcium [Mass/Vol] 8.0 mg/dL Low 8.6-10.6 [facility] Comment on above: Performed By: #### 2 4323-8 ####BHANU MATOSER L ([id number])[facility] ([facility])13262 [place] [address] Chloride [Moles/Vol] 102 mmol/L Normal 98-107 [facility] Comment on above: Performed By: #### 2 4323-8 ####BHANU GREGORY L ([id number])[facility] ([facility])[address]011 [place] [address] CO2 [Moles/Vol] 28 mmol/L Normal 21-32 [facility] Comment on above: Performed By: #### 2 4323-8 ####BHANU FLEMINGMOJOSEFA L (93073)[facility] ([facility])[address]45 [place] [address] Creatinine [Mass/Vol] 1.07 mg/dL Normal 0.50-1.30 [facility] Comment on above: Performed By: #### 2 4323-8 ####BHANU GREGORY L ([id number])[facility] ([facility])[address]67 [place] [address] Glomerular filtration rate/1.73 sq M.predicted 84 mL/min/1.73m*2 Normal >60 [facility] Comment on above: Result Comment: Calc ulations of estimated GFR are performed using the 2020 CKD-EPI Study Refit equation without the race variable for the IDMS-Traceable creatinine methods.https://jasn.asnjournals.org/content//A SN.9977415034 Performed By: #### 2 4323-8 ####BHANU GREGORY L ([id number])[facility] ([facility])[address]241 [place] [address] Glucose [Mass/Vol] 113 mg/dL High 74-99 [facility] Comment on above: Performed By: #### 2 4323-8 ####BHANU GREGORY L (37902)[facility] ([facility])[address]19 [place] [address] Potassium [Moles/Vol] 4.5 mmol/L Normal 3.5-5.3 [facility] Comment on above: Performed By: #### 2 4323-8 ####BHANU GREGORY L ([id number])[facility] ([facility])68886 [place] [address] Protein [Mass/Vol] 6.0 g/dL Low 6.4-8.2 [facility] Comment on above: Performed By: #### 2 4323-8 ####BHANU GREGORY L (55998)[facility] ([facility])[address]907 [place] [address] Sodium [Moles/Vol] 138 mmol/L Normal 136-145 [facility] Comment on above: Performed By: #### 2 4323-8 ####BHANU FLEMINGMOMELANIER L (74458)[facility] ([facility])[address]73 [place] [address] Urea nitrogen [Mass/Vol] 11 mg/dL Normal 6-23 [facility] Comment on above: Performed By: #### 2 4323-8 ####BHANU FLEMINGMOTZER L (50786)[facility] ([facility])[address]94 [place] [address] Lactateon 01-28-2025 Lactate [Moles/Vol] 1.4 mmol/L Normal 0.4-2.0 [facility] Comment on above: Order Comment: Venip uncture immediately after or during the administration of Metamizole may lead to falsely low results. Testing should be performed immediately prior to Metamizole dosing. Performed By: #### 2 524-7 ####BHANU Treviño ([id number])[facility] ([facility])[address]10 [place] [address] Magnesiumon 01-28-2025 Magnesium [Mass/Vol] 1.92 mg/dL Normal 1.60-2.40 [facility] Comment on above: Performed By: #### 1 9123-9 ####BHANU Treviño (85924)[facility] ([facility])[id number] [place] [address] Blood type and Indirect anti body screen panel (Bld)on 01-27-2025 ABO group Nom (Bld) A Normal [facility] Comment on above: Performed By: #### 3 4532-2 ####BHANU Treviño ([id number])[facility] ([facility])[address] [place] [address] Blood group antibody screen Ql Negative [facility] Comment on above: Performed By: #### 3 4532-2 ####BHANU Treviño (85921)[facility] ([facility])[address] [place] [address] D Ag Ql (Bld) Positive [facility] Comment on above: Performed By: #### 3 4532-2 ####BHANU Treviño ([id number])[facility] ([facility])[id number] [place] [address] CBC W Auto Differential pane l (Bld)on 01-27-2025 Basophils (Bld) [#/Vol] 0.08 x10*3/uL Normal 0.00-0.10 [facility] Comment on above: Performed By: #### 5 7021-8 ####BHANU Treviño ([id number])[facility] ([facility])22938 [place] [address] Basophils/100 WBC (Bld) 1.1 % Normal 0.0-2.0 [facility] Comment on above: Performed By: #### 5 7021-8 ####BHANU Treviño ([id number])[facility] ([facility])[address]90 [place] [address] Eosinophils (Bld) [#/Vol] 0.07 x10*3/uL Normal 0.00-0.70 [facility] Comment on above: Performed By: #### 5 7021-8 ####BHANU Treviño ([id number])[facility] ([facility])[id number] [place] [address] Eosinophils/100 WBC (Bld) 0.9 % Normal 0.0-6.0 [facility] Comment on above: Performed By: #### 5 7021-8 ####BHANU Treviño ([id number])[facility] ([facility])[id number] [place] [address]39 Erythrocyte distribution width (RBC) [Ratio] 19.8 % High 11.5-14.5 [facility] Comment on above: Performed By: #### 5 7021-8 ####BHANU Treviño ([id number])[facility] ([facility])[address] [place] [address] Hematocrit (Bld) [Volume fraction] 27.5 % Low 41.0-52.0 [facility] Comment on above: Performed By: #### 5 7021-8 ####BHANU Treviño ([id number])[facility] ([facility])[id number] [place] [address]763 Hemoglobin (Bld) [Mass/Vol] 8.5 g/dL Low 13.5-17.5 [facility] Comment on above: Performed By: #### 5 7021-8 ####BHANU Treviño ([id number])[facility] ([facility])[address] [place] [address]206 Immature granulocytes (Bld) [#/Vol] 0.03 x10*3/uL Normal 0.00-0.70 [facility] Comment on above: Performed By: #### 5 7021-8 ####BHANU Treviño (57734)[facility] ([facility])[address]36 [place] [address] Immature granulocytes/100 WBC (Bld) 0.4 % Normal 0.0-0.9 [facility] Comment on above: Result Comment: Christine ture Granulocyte Count (IG) includes promyelocytes, myelocytes and metamyelocytes but does not include bands. Percent differential counts (%) should be interpreted in the context of the absolute cell counts (cells/UL). Performed By: #### 5 7021-8 ####BHANU Treviño ([id number])[facility] ([facility])64748 [place] [address] Lymphocytes (Bld) [#/Vol] 1.18 x10*3/uL Low 1.20-4.80 [facility] Comment on above: Performed By: #### 5 7021-8 ####BHANU Treviño ([id number])[facility] ([facility])37483 [place] [address] Lymphocytes/100 WBC (Bld) 15.7 % Normal 13.0-44.0 [facility] Comment on above: Performed By: #### 5 7021-8 ####BHANU Treviño ([id number])[facility] ([facility])30568 [place] [address] MCH (RBC) [Entitic mass] 23.9 pg Low 26.0-34.0 [facility] Comment on above: Performed By: #### 5 7021-8 ####BHANU Treviño (70985)[facility] ([facility])40871 [place] [address] MCHC (RBC) [Mass/Vol] 30.9 g/dL Low 32.0-36.0 [facility] Comment on above: Performed By: #### 5 7021-8 ####BHANU Treviño ([id number])[facility] ([facility])12989 [place] [address] MCV (RBC) [Entitic vol] 78 fL Low 80-100 [facility] Comment on above: Performed By: #### 5 7021-8 ####BHANU Treviño ([id number])[facility] ([facility])11566 [place] [address] Monocytes (Bld) [#/Vol] 1.05 x10*3/uL High 0.10-1.00 [facility] Comment on above: Performed By: #### 5 7021-8 ####BHANU Treviño ([id number])[facility] ([facility])80206 [place] [address] Monocytes/100 WBC (Bld) 14.0 % Normal 2.0-10.0 [facility] Comment on above: Performed By: #### 5 7021-8 ####BHANU Treviño ([id number])[facility] ([facility])[address]01 [place] [address] Neutrophils (Bld) [#/Vol] 5.09 x10*3/uL Normal 1.20-7.70 [facility] Comment on above: Result Comment: Perc ent differential counts (%) should be interpreted in the context of the absolute cell counts (cells/uL). Performed By: #### 5 7021-8 ####BHANU Treviño (85842)[facility] ([facility])76383 [place] [address] Neutrophils/100 WBC (Bld) 67.9 % Normal 40.0-80.0 [facility] Comment on above: Performed By: #### 5 7021-8 ####BHANU Treviño ([id number])[facility] ([facility])[address]69 [place] [address] Nucleated RBC/100 WBC (Bld) [Ratio] 0.0 /100 WBCs Normal 0.0-0.0 [facility] Comment on above: Performed By: #### 5 7021-8 ####BHANU Treviño ([id number])[facility] ([facility])[address]23 [place] [address] Platelets (Bld) [#/Vol] 644 x10*3/uL High 150-450 [facility] Comment on above: Performed By: #### 5 7021-8 ####BHANU Treviño ([id number])[facility] ([facility])[address] [place] [address] RBC (Bld) [#/Vol] 3.55 x10*6/uL Low 4.50-5.90 [facility] Comment on above: Performed By: #### 5 7021-8 ####BHANU Treviño ([id number])[facility] ([facility])[address] [place] [address] WBC (Bld) [#/Vol] 7.5 x10*3/uL Normal 4.4-11.3 [facility] Comment on above: Performed By: #### 5 7021-8 ####BHANU Treviño ([id number])[facility] ([facility])[address] [place] [address] Comprehensive metabolic 2000 panelon 01-27-2025 Albumin BCP dye [Mass/Vol] 2.3 g/dL Low 3.4-5.0 [facility] Comment on above: Performed By: #### 2 4323-8 ####BHANU Treviño ([id number])[facility] ([facility])[address] [place] [address] ALP [Catalytic activity/Vol] 70 U/L Normal 33-120 [facility] Comment on above: Performed By: #### 2 4323-8 ####BHANU Treviño ([id number])[facility] ([facility])[address] [place] [address] ALT With P-5'-P [Catalytic activity/Vol] 40 U/L Normal 10-52 [facility] [facility] Comment on above: Result Comment: Sydni ents treated with Sulfasalazine may generate falsely decreased results for ALT. Performed By: #### 2 4323-8 ####BHANU Treviño ([id number])[facility] ([facility])[address] [place] [address] Anion gap [Moles/Vol] 11 mmol/L Normal 10-20 [facility] Comment on above: Performed By: #### 2 4323-8 ####BHANU Treviño ([id number])[facility] ([facility])[address] [place] [address] AST With P-5'-P [Catalytic activity/Vol] 53 U/L High 9-39 [facility] Comment on above: Performed By: #### 2 4323-8 ####BHANU Treviño ([id number])[facility] ([facility])[address] [place] [address] Bilirubin [Mass/Vol] 0.4 mg/dL Normal 0.0-1.2 [facility] Comment on above: Performed By: #### 2 4323-8 ####BHANU Treviño ([id number])[facility] ([facility])[address] [place] [address] Calcium [Mass/Vol] 8.1 mg/dL Low 8.6-10.6 [facility] Comment on above: Performed By: #### 2 4323-8 ####BHANU Treviño ([id number])[facility] ([facility])[address]140 [place] [address] Chloride [Moles/Vol] 101 mmol/L Normal 98-107 [facility] Comment on above: Performed By: #### 2 4323-8 ####BHANU Treviño ([id number])[facility] ([facility])[address]364 [place] [address] CO2 [Moles/Vol] 29 mmol/L Normal 21-32 [facility] Comment on above: Performed By: #### 2 4323-8 ####BHANU Treviño ([id number])[facility] ([facility])[address]776 [place] [address] Creatinine [Mass/Vol] 1.22 mg/dL Normal 0.50-1.30 [facility] Comment on above: Performed By: #### 2 4323-8 ####BHANU GREGORY L ([id number])[facility] ([facility])[address]463 [place] [address] Glomerular filtration rate/1.73 sq M.predicted 72 mL/min/1.73m*2 Normal >60 [facility] Comment on above: Result Comment: Calc ulations of estimated GFR are performed using the 2020 CKD-EPI Study Refit equation without the race variable for the IDMS-Traceable creatinine methods.https://jasn.asnjournals.org/content/early//A SN.2039235573 Performed By: #### 2 4323-8 ####BHANU GREGORY L ([id number])[facility] ([facility])[address]608 [place] [address] Glucose [Mass/Vol] 86 mg/dL Normal 74-99 [facility] Comment on above: Performed By: #### 2 4323-8 ####BHANU GREGORY L ([id number])[facility] ([facility])[address]996 [place] [address] Potassium [Moles/Vol] 4.1 mmol/L Normal 3.5-5.3 [facility] Comment on above: Performed By: #### 2 4323-8 ####BHANU FLEMINGMOTZER L ([id number])[facility] ([facility])13088 [place] [address] Protein [Mass/Vol] 6.5 g/dL Normal 6.4-8.2 [facility] Comment on above: Performed By: #### 2 4323-8 ####BHANU FLEMINGMOTZER L ([id number])[facility] ([facility])[address]493 [place] [address] Sodium [Moles/Vol] 137 mmol/L Normal 136-145 [facility] Comment on above: Performed By: #### 2 4323-8 ####BHANU FLEMINGMOTZER L ([id number])[facility] ([facility])[address]91 [place] [address] Urea nitrogen [Mass/Vol] 8 mg/dL Normal 6-23 [facility] Comment on above: Performed By: #### 2 4323-8 ####BHANU Treviño ([id number])[facility] ([facility])[id number] [place] [address] Magnesiumon 01-27-2025 Magnesium [Mass/Vol] 1.92 mg/dL Normal 1.60-2.40 [facility] Comment on above: Performed By: #### 1 9123-9 ####BHANU Treviño ([id number])[facility] ([facility])[id number] [place] [address] CBC W Auto Differential pane l (Bld)on 01-26-2025 Basophils (Bld) [#/Vol] 0.07 x10*3/uL Normal 0.00-0.10 [facility] Comment on above: Performed By: #### 5 7021-8 ####BHANU Treviño ([id number])[facility] ([facility])[id number] [place] [address] 12652 Basophils/100 WBC (Bld) 0.8 % Normal 0.0-2.0 [facility] Comment on above: Performed By: #### 5 7021-8 ####BHANU Treviño ([id number])[facility] ([facility])[id number] [place] [address] Eosinophils (Bld) [#/Vol] 0.40 x10*3/uL Normal 0.00-0.70 [facility] Comment on above: Performed By: #### 5 7021-8 ####BHANU Treviño ([id number])[facility] ([facility])[address]35 [place] [address] Eosinophils/100 WBC (Bld) 4.6 % Normal 0.0-6.0 [facility] Comment on above: Performed By: #### 5 7021-8 ####BHANU Treviño ([id number])[facility] ([facility])[id number] [place] [address] Erythrocyte distribution width (RBC) [Ratio] 19.9 % High 11.5-14.5 [facility] Comment on above: Performed By: #### 5 7021-8 ####BHANU Treviño ([id number])[facility] ([facility])[id number] [place] [address] Hematocrit (Bld) [Volume fraction] 28.3 % Low 41.0-52.0 [facility] Comment on above: Performed By: #### 5 7021-8 ####BHANU Treviño ([id number])[facility] ([facility])[id number] [place] [address] Hemoglobin (Bld) [Mass/Vol] 8.7 g/dL Low 13.5-17.5 [facility] Comment on above: Performed By: #### 5 7021-8 ####BHANU Treviño ([id number])[facility] ([facility])[id number] [place] [address] Immature granulocytes (Bld) [#/Vol] 0.04 x10*3/uL Normal 0.00-0.70 [facility] Comment on above: Performed By: #### 5 7021-8 ####BHANU Treviño ([id number])[facility] ([facility])[address] [place] [address] 22813 Immature granulocytes/100 WBC (Bld) 0.5 % Normal 0.0-0.9 [facility] Comment on above: Result Comment: Christine ture Granulocyte Count (IG) includes promyelocytes, myelocytes and metamyelocytes but does not include bands. Percent differential counts (%) should be interpreted in the context of the absolute cell counts (cells/UL). Performed By: #### 5 7021-8 ####BHANU Treviño ([id number])[facility] ([facility])[id number] [place] [address]990 Lymphocytes (Bld) [#/Vol] 1.23 x10*3/uL Normal 1.20-4.80 [facility] Comment on above: Performed By: #### 5 7021-8 ####BHANU GREGORY L ([id number])[facility] ([facility])[address]125 [place] [address] Lymphocytes/100 WBC (Bld) 14.1 % Normal 13.0-44.0 [facility] Comment on above: Performed By: #### 5 7021-8 ####BHANU GREGORY L ([id number])[facility] ([facility])[address]27 [place] [address] MCH (RBC) [Entitic mass] 24.2 pg Low 26.0-34.0 [facility] Comment on above: Performed By: #### 5 7021-8 ####BHANU GREGORY L ([id number])[facility] ([facility])49263 [place] [address] MCHC (RBC) [Mass/Vol] 30.7 g/dL Low 32.0-36.0 [facility] Comment on above: Performed By: #### 5 7021-8 ####BHANU FLEMINGMOJOSEFA L ([id number])[facility] ([facility])[address]264 [place] [address] MCV (RBC) [Entitic vol] 79 fL Low 80-100 [facility] Comment on above: Performed By: #### 5 7021-8 ####BHANU FLEMINGMOJOSEFA L ([id number])[facility] ([facility])75362 [place] [address] Monocytes (Bld) [#/Vol] 1.06 x10*3/uL High 0.10-1.00 [facility] Comment on above: Performed By: #### 5 7021-8 ####BHANU FLEMINGMOTZALANNA L ([id number])[facility] ([facility])[address]51 [place] [address] Monocytes/100 WBC (Bld) 12.2 % Normal 2.0-10.0 [facility] Comment on above: Performed By: #### 5 7021-8 ####BHANU FLEMINGMOJOSEFA L (62035)[facility] ([facility])[address]808 [place] [address] Neutrophils (Bld) [#/Vol] 5.92 x10*3/uL Normal 1.20-7.70 [facility] Comment on above: Result Comment: Perc ent differential counts (%) should be interpreted in the context of the absolute cell counts (cells/uL). Performed By: #### 5 7021-8 ####BHANU Treivño ([id number])[facility] ([facility])[address]14 [place] [address] Neutrophils/100 WBC (Bld) 67.8 % Normal 40.0-80.0 [facility] Comment on above: Performed By: #### 5 7021-8 ####BHANU Treviño ([id number])[facility] ([facility])47334 [place] [address] Nucleated RBC/100 WBC (Bld) [Ratio] 0.0 /100 WBCs Normal 0.0-0.0 [facility] Comment on above: Performed By: #### 5 7021-8 ####BHANU GREGORY L ([id number])[facility] ([facility])[address]554 [place] [address] Platelets (Bld) [#/Vol] 713 x10*3/uL High 150-450 [facility] Comment on above: Performed By: #### 5 7021-8 ####BHANU Treviño ([id number])[facility] ([facility])[address]74 [place] [address] RBC (Bld) [#/Vol] 3.60 x10*6/uL Low 4.50-5.90 [facility] Comment on above: Performed By: #### 5 7021-8 ####BHANU GREGORY L ([id number])[facility] ([facility])[address]67 [place] [address] WBC (Bld) [#/Vol] 8.7 x10*3/uL Normal 4.4-11.3 [facility] Comment on above: Performed By: #### 5 7021-8 ####BHANU Treviño ([id number])[facility] ([facility])[address]57 [place] [address] Comprehensive metabolic 2000 panelon 01-26-2025 Albumin BCP dye [Mass/Vol] 2.4 g/dL Low 3.4-5.0 [facility] Comment on above: Performed By: #### 2 4323-8 ####BHANU Treviño ([id number])[facility] ([facility])[address]350 [place] [address] ALP [Catalytic activity/Vol] 74 U/L Normal 33-120 [facility] Comment on above: Performed By: #### 2 4323-8 ####BHANU Treviño ([id number])[facility] ([facility])[address]345 [place] [address] ALT With P-5'-P [Catalytic activity/Vol] 38 U/L Normal 10-52 [facility] Comment on above: Result Comment: Sydni ents treated with Sulfasalazine may generate falsely decreased results for ALT. Performed By: #### 2 4323-8 ####BHANU Treviño ([id number])[facility] ([facility])[address]39 [place] [address] Anion gap [Moles/Vol] 12 mmol/L Normal 10-20 [facility] Comment on above: Performed By: #### 2 4323-8 ####BHANU Treviño ([id number])[facility] ([facility])[address]03 [place] [address] AST With P-5'-P [Catalytic activity/Vol] 55 U/L High 9-39 [facility] Comment on above: Performed By: #### 2 4323-8 ####BHANU Treviño ([id number])[facility] ([facility])[address]92 [place] [address] Bilirubin [Mass/Vol] 0.3 mg/dL Normal 0.0-1.2 [facility] Comment on above: Performed By: #### 2 4323-8 ####BHANU Treviño ([id number])[facility] ([facility])[address]34 [place] [address] Calcium [Mass/Vol] 8.3 mg/dL Low 8.6-10.6 [facility] Comment on above: Performed By: #### 2 4323-8 ####BHANU GREGORY L (40962)[facility] ([facility])[address] [place] [address] Chloride [Moles/Vol] 102 mmol/L Normal 98-107 [facility] Comment on above: Performed By: #### 2 4323-8 ####BHANU FLEMINGMOTZER L (85319)[facility] ([facility])[address]30 [place] [address] CO2 [Moles/Vol] 29 mmol/L Normal 21-32 [facility] Comment on above: Performed By: #### 2 4323-8 ####BHANU GREGORY L ([id number])[facility] ([facility])[address]29 [place] [address] Creatinine [Mass/Vol] 1.29 mg/dL Normal 0.50-1.30 [facility] Comment on above: Performed By: #### 2 4323-8 ####BHANU GREGORY L (29071)[facility] ([facility])41872 [place] [address] Glomerular filtration rate/1.73 sq M.predicted 67 mL/min/1.73m*2 Normal >60 [facility] Comment on above: Result Comment: Calc ulations of estimated GFR are performed using the 2020 CKD-EPI Study Refit equation without the race variable for the IDMS-Traceable creatinine methods.https://jasn.asnjournals.org/content//A SN.7314339880 Performed By: #### 2 4323-8 ####BHANU GREGORY L ([id number])[facility] ([facility])[address]32 [place] [address] Glucose [Mass/Vol] 100 mg/dL High 74-99 [facility] Comment on above: Performed By: #### 2 4323-8 ####BHANU Treviño ([id number])[facility] ([facility])62868 [place] [address] Potassium [Moles/Vol] 4.0 mmol/L Normal 3.5-5.3 [facility] Comment on above: Performed By: #### 2 4323-8 ####BHANU Treviño ([id number])[facility] ([facility])[id number] [place] [address] Protein [Mass/Vol] 6.6 g/dL Normal 6.4-8.2 [facility] Comment on above: Performed By: #### 2 4323-8 ####BHANU Treviño ([id number])[facility] ([facility])[id number] [place] [address] Sodium [Moles/Vol] 139 mmol/L Normal 136-145 [facility] Comment on above: Performed By: #### 2 4323-8 ####BHANU Treviño (61993)[facility] ([facility])[id number] [place] [address] 68280 Urea nitrogen [Mass/Vol] 9 mg/dL Normal 6-23 [facility] Comment on above: Performed By: #### 2 4323-8 ####BHANU Treviño ([id number])[facility] ([facility])[id number] [place] [address] 30819 Magnesiumon 01-26-2025 Magnesium [Mass/Vol] 2.06 mg/dL Normal 1.60-2.40 [facility] Comment on above: Performed By: #### 1 9123-9 ####BHANU Treviño ([id number])[facility] ([facility])[id number] [place] [address] 81261 CBC W Auto Differential pane l (Bld)on 01-25-2025 Erythrocyte distribution width (RBC) [Ratio] 19.8 % High 11.5-14.5 [facility] Comment on above: Order Comment: [...] Performed By: #### 5 7021-8 ####BHANU Treviño ([id number])[facility] ([facility])[address] [place] [address] Hematocrit (Bld) [Volume fraction] 28.8 % Low 41.0-52.0 [facility] Comment on above: Order Comment: [...] Performed By: #### 5 7021-8 ####BHANU Treviño 35925)[facility] ([facility])[address] [place] [address] Hemoglobin (Bld) [Mass/Vol] 9.0 g/dL Low 13.5-17.5 [facility] Comment on above: Order Comment: [...] Performed By: #### 5 7021-8 ####BHANU Treviño ([id number])[facility] ([facility])51293 [place] [address] Immature granulocytes (Bld) [#/Vol] 0.06 x10*3/uL Normal 0.00-0.70 [facility] Comment on above: Order Comment: [...] Performed By: #### 5 7021-8 ####BHANU Treviño ([id number])[facility] ([facility])18489 [place] [address] Immature granulocytes/100 WBC (Bld) 0.6 % Normal 0.0-0.9 [facility] Comment on above: Order Comment: [...] Performed By: #### 5 7021-8 ####BHANU Treviño ([id number])[facility] ([facility])47419 [place] [address] MCH (RBC) [Entitic mass] 24.6 pg Low 26.0-34.0 [facility] Comment on above: Order Comment: [...] Performed By: #### 5 7021-8 ####BHANU Treviño (85392)[facility] ([facility])25189 [place] [address] MCHC (RBC) [Mass/Vol] 31.3 g/dL Low 32.0-36.0 [...] reported. Performed By: #### 5 7021-8 ####BHANU FLEMINGMOJOSEFA Treviño ([id number])[facility] ([facility])92446 [place] [address] MCV (RBC) [Entitic vol] 79 fL Low 80-100 [facility] Comment on above: Order Comment: [...] Performed By: #### 5 7021-8 ####BHANU Treviño ([id number])[facility] ([facility])26541 [place] [address] Nucleated RBC/100 WBC (Bld) [Ratio] 0.0 /100 WBCs Normal 0.0-0.0 [facility] Comment on above: Order Comment: [...] Performed By: #### 5 7021-8 ####BHANU Treviño ([id number])[facility] ([facility])83801 [place] [address] Platelets (Bld) [#/Vol] 753 x10*3/uL High 150-450 [facility] Comment on above: Order Comment: [...] Performed By: #### 5 7021-8 ####BHANU Treviño (65781)[facility] ([facility])61128 [place] [address] RBC (Bld) [#/Vol] 3.66 x10*6/uL Low 4.50-5.90 [...] Performed By: #### 5 7021-8 ####BHANU LAUREANOTZER Kamila ([id number])[facility] ([facility])78299 [place] [address] WBC (Bld) [#/Vol] 10.7 x10*3/uL Normal 4.4-11.3 [...] By: #### 5 7021-8 ####BHANU GREGORY L ([id number])[facility] ([facility])17003 [place] [address] Comprehensive metabolic 2000 panelon 05-10-2025 Albumin BCP dye [Mass/Vol] 2.5 g/dL Low 3.4-5.0 [facility] Comment on above: Performed By: #### 2 4323-8 ####BHANU Treviño ([id number])[facility] ([facility])62771 [place] [address] ALP [Catalytic activity/Vol] 69 U/L Normal 33-120 [facility] Comment on above: Performed By: #### 2 4323-8 ####BHANU Treviño ([id number])[facility] ([facility])[address]90 [place] [address] ALT With P-5'-P [Catalytic activity/Vol] 34 U/L Normal 10-52 [facility] Comment on above: Result Comment: Sydni ents treated with Sulfasalazine may generate falsely decreased results for ALT. Performed By: #### 2 4323-8 ####BHANU Treviño ([id number])[facility] ([facility])[address]82 [place] [address] Anion gap [Moles/Vol] 14 mmol/L Normal 10-20 [facility] Comment on above: Performed By: #### 2 4323-8 ####BHANU Treviño ([id number])[facility] ([facility])83182 [place] [address] AST With P-5'-P [Catalytic activity/Vol] 43 U/L High 9-39 [facility] Comment on above: Performed By: #### 2 4323-8 ####BHANU Treviño ([id number])[facility] ([facility])43989 [place] [address] Bilirubin [Mass/Vol] 0.4 mg/dL Normal 0.0-1.2 [facility] Comment on above: Performed By: #### 2 4323-8 ####BHANU Treviño ([id number])[facility] ([facility])[address]36 [place] [address] Calcium [Mass/Vol] 8.5 mg/dL Low 8.6-10.6 [facility] Comment on above: Performed By: #### 2 4323-8 ####BHANU GREGORY L ([id number])[facility] ([facility])[address]80 [place] [address] Chloride [Moles/Vol] 101 mmol/L Normal 98-107 [facility] Comment on above: Performed By: #### 2 4323-8 ####BHANU FLEMINGMOTZER L (75012)[facility] ([facility])34988 [place] [address] CO2 [Moles/Vol] 26 mmol/L Normal 21-32 [facility] Comment on above: Performed By: #### 2 4323-8 ####BHANU GREGORY L ([id number])[facility] ([facility])51887 [place] [address] Creatinine [Mass/Vol] 1.11 mg/dL Normal 0.50-1.30 [facility] Comment on above: Performed By: #### 2 4323-8 ####BHANU GREGORY L ([id number])[facility] ([facility])58367 [place] [address] Glomerular filtration rate/1.73 sq M.predicted 80 mL/min/1.73m*2 Normal >60 [facility] Comment on above: Result Comment: Calc ulations of estimated GFR are performed using the 2020 CKD-EPI Study Refit equation without the race variable for the IDMS-Traceable creatinine methods.https://jasn.asnjournals.org/content//A SN.1879281140 Performed By: #### 2 4323-8 ####BHANU GREGORY L ([id number])[facility] ([facility])[address] [place] [address] Glucose [Mass/Vol] 100 mg/dL High 74-99 [facility] Comment on above: Performed By: #### 2 4323-8 ####BHANU GREGORY L ([id number])[facility] ([facility])[address] [place] [address] Potassium [Moles/Vol] 3.9 mmol/L Normal 3.5-5.3 [facility] Comment on above: Performed By: #### 2 4323-8 ####BHANU Treviño ([id number])[facility] ([facility])[address] [place] [address] Protein [Mass/Vol] 6.8 g/dL Normal 6.4-8.2 [facility] Comment on above: Performed By: #### 2 4323-8 ####BHANU Treviño ([id number])[facility] ([facility])[address] [place] [address] Sodium [Moles/Vol] 137 mmol/L Normal 136-145 [facility] Comment on above: Performed By: #### 2 4323-8 ####BHANU Treviño ([id number])[facility] ([facility])[address] [place] [address] Urea nitrogen [Mass/Vol] 8 mg/dL Normal 6-23 [facility] Comment on above: Performed By: #### 2 4323-8 ####BHANU Treviño ([id number])[facility] ([facility])[address] [place] [address] Magnesiumon 01-25-2025 Magnesium [Mass/Vol] 2.08 mg/dL Normal 1.60-2.40 [facility] Comment on above: Performed By: #### 1 9123-9 ####BHANU Treviño ([id number])[facility] ([facility])[address] [place] [address]489 Manual differential performe d Ql (Bld)on 01-25-2025 Band form neutrophils (Bld) [#/Vol] 0.28 x10*3/uL Normal 0.00-0.70 [facility] Comment on above: Performed By: #### 5 0957-0 ####BHANU Treviño ([id number])[facility] ([facility])[address] [place] [address] [place] [address] Band form neutrophils/100 WBC (Bld) 2.6 % Normal 0.0-5.0 [facility] Comment on above: Performed By: #### 5 0957-0 ####BHANU Treviño ([id number])[facility] ([facility])[address] [place] [address] Basophils (Bld) [#/Vol] 0.00 x10*3/uL Normal 0.00-0.10 [facility] Comment on above: Performed By: #### 5 0957-0 ####BHANU Treviño ([id number])[facility] ([facility])[address] [place] [address] Basophils/100 WBC (Bld) 0.0 % Normal 0.0-2.0 [facility] Comment on above: Performed By: #### 5 0957-0 ####BHANU Treviño ([id number])[facility] ([facility])[address] [place] [address] Cells Counted Total (Bld) [#] 116 Normal [facility] Comment on above: Performed By: #### 5 0957-0 ####BHANU Treviño ([id number])[facility] ([facility])[address] [place] [address] Eosinophils (Bld) [#/Vol] 0.09 x10*3/uL Normal 0.00-0.70 [facility] Comment on above: Performed By: #### 5 0957-0 ####BHANU rTeviño ([id number])[facility] ([facility])[address] [place] [address] Eosinophils/100 WBC (Bld) 0.8 % Normal 0.0-6.0 [facility] Comment on above: Performed By: #### 5 0957-0 ####BHANU Treviño ([id number])[facility] ([facility])[address] [place] [address] Hypochromia Ql (Bld) Mild Normal [facility] Comment on above: Performed By: #### 5 0957-0 ####BHANU Treviño ([id number])[facility] ([facility])[address] [place] [address] Lymphocytes (Bld) [#/Vol] 0.46 x10*3/uL Low 1.20-4.80 [facility] Comment on above: Performed By: #### 5 57-0 ####BHANU Treviño ([id number])[facility] ([facility])[address] [place] [address] Lymphocytes/100 WBC (Bld) 4.3 % Normal 13.0-44.0 [facility] Comment on above: Performed By: #### 5 57-0 ####BHANU Treviño ([id number])[facility] ([facility])[id number] [place] [address] Monocytes (Bld) [#/Vol] 0.46 x10*3/uL Normal 0.10-1.00 [facility] Comment on above: Performed By: #### 5 57-0 ####BHANU Treviño ([id number])[facility] ([facility])[address] [place] [address] Monocytes/100 WBC (Bld) 4.3 % Normal 2.0-10.0 [facility] Comment on above: Performed By: #### 5 57-0 ####BHANU Treviño ([id number])[facility] ([facility])[address] [place] [address] Neutrophils (Bld) [#/Vol] 9.60 x10*3/uL High 1.20-7.70 [facility] Comment on above: Performed By: #### 5 57-0 ####BHANU Treviño ([id number])[facility] ([facility])[address] [place] [address] RBC morphology finding Nom (Bld) See Below Normal [facility] Comment on above: Performed By: #### 5 57-0 ####BHANU Treviño ([id number])[facility] ([facility])[address] [place] [address] Segmented neutrophils (Bld) [#/Vol] 9.32 x10*3/uL High 1.20-7.00 [facility] Comment on above: Performed By: #### 5 0957-0 ####BHANU Treviño ([id number])[facility] ([facility])[address] [place] [address] Segmented neutrophils/100 WBC (Bld) 87.1 % Normal 40.0-80.0 [facility] Comment on above: Result Comment: Perc ent differential counts (%) should be interpreted in the context of the absolute cell counts (cells/uL). Performed By: #### 5 0957-0 ####BHANU Treviño ([id number])[facility] ([facility])[id number] [place] [address]017 Target cells LM Ql (Bld) Few Normal [facility] Comment on above: Performed By: #### 5 0957-0 ####BHANU Treviño ([id number])[facility] ([facility])[address] [place] [address] 56702 Variant lymphocytes (Bld) [#/Vol] 0.10 x10*3/uL Normal 0.00-0.50 [facility] Comment on above: Performed By: #### 5 0957-0 ####BHANU Treviño ([id number])[facility] ([facility])[address] [place] [address] 49800 Variant lymphocytes/100 WBC (Bld) 0.9 % Normal 0.0-2.0 [facility] Comment on above: Performed By: #### 5 0957-0 ####BHANU Treviño ([id number])[facility] ([facility])[id number] [place] [address] 32677 Bacteria identifiedon 2024 Bacteria identified Cx Nom (Unsp spec) Abnormal [facility] Comment on above: Performed By: #### 6 463-4 ####BHANU Treviño ([id number])[facility] ([facility])[address] [place] [address] Blood type and Indirect anti body screen panel (Bld)on 01-24-2025 ABO group Nom (Bld) A Normal [facility] Comment on above: Performed By: #### 3 4532-2 ####BHANU Treviño ([id number])[facility] ([facility])[address] [place] [address] Blood group antibody screen Ql Negative [facility] Comment on above: Performed By: #### 3 4532-2 ####BHANU Treviño ([id number])[facility] ([facility])[address] [facility] [place] [address] D Ag Ql (Bld) Positive [facility] Comment on above: Performed By: #### 3 4532-2 ####BHANU Treviño ([id number])[facility] ([facility])[address] [place] [address], [place] [address] CBC W Auto Differential pane l (Bld)on 01-24-2025 Basophils (Bld) [#/Vol] 0.07 x10*3/uL Normal 0.00-0.10 [facility] Comment on above: Performed By: #### 5 7021-8 ####BHANU Treviño ([id number])[facility] ([facility])[address] [place] [address] 73871 Basophils/100 WBC (Bld) 0.7 % Normal 0.0-2.0 [facility] Comment on above: Performed By: #### 5 7021-8 ####BHANU Treviño (19591)[facility] ([facility])[address] [place] [address] 39818 Eosinophils (Bld) [#/Vol] 0.31 x10*3/uL Normal 0.00-0.70 [facility] Comment on above: Performed By: #### 5 7021-8 ####BHANU Treviño ([id number])[facility] ([facility])[address] [place] [address] 08842 Eosinophils/100 WBC (Bld) 3.3 % Normal 0.0-6.0 [facility] Comment on above: Performed By: #### 5 7021-8 ####BHANU Treviño ([id number])[facility] ([facility])[address] [place] [address] Erythrocyte distribution width (RBC) [Ratio] 19.7 % High 11.5-14.5 [facility] Comment on above: Performed By: #### 5 7021-8 ####BHANU Treviño ([id number])[facility] ([facility])[address] [place] [address] Hematocrit (Bld) [Volume fraction] 27.2 % Low 41.0-52.0 [facility] Comment on above: Performed By: #### 5 7021-8 ####BHANU Treviño ([id number])[facility] ([facility])[id number] [place] [address] 64634 Hemoglobin (Bld) [Mass/Vol] 8.6 g/dL Low 13.5-17.5 [facility] Comment on above: Performed By: #### 5 7021-8 ####BHANU Treviño ([id number])[facility] ([facility])[address] [place] [address] 28412 Immature granulocytes (Bld) [#/Vol] 0.06 x10*3/uL Normal 0.00-0.70 [facility] Comment on above: Performed By: #### 5 7021-8 ####BHANU Treviño ([id number])[facility] ([facility])[address]654 [place] [address] Immature granulocytes/100 WBC (Bld) 0.6 % Normal 0.0-0.9 [facility] Comment on above: Result Comment: Christine ture Granulocyte Count (IG) includes promyelocytes, myelocytes and metamyelocytes but does not include bands. Percent differential counts (%) should be interpreted in the context of the absolute cell counts (cells/UL). Performed By: #### 5 7021-8 ####BHANU Treviño ([id number])[facility] ([facility])[id number] [place] [address] 70642 Lymphocytes (Bld) [#/Vol] 1.12 x10*3/uL Low 1.20-4.80 [facility] Comment on above: Performed By: #### 5 7021-8 ####BHANU Treviño ([id number])[facility] ([facility])[address] [place] [address] 46580 Lymphocytes/100 WBC (Bld) 11.8 % Normal 13.0-44.0 [facility] Comment on above: Performed By: #### 5 7021-8 ####BHANU Treviño ([id number])[facility] ([facility])[address] [place] [address] 70147 MCH (RBC) [Entitic mass] 24.5 pg Low 26.0-34.0 [facility] Comment on above: Performed By: #### 5 7021-8 ####BHANU Treviño ([id number])[facility] ([facility])[address] [place] [address] 88190 MCHC (RBC) [Mass/Vol] 31.6 g/dL Low 32.0-36.0 [facility] Comment on above: Performed By: #### 5 7021-8 ####BHANU Treviño ([id number])[facility] ([facility])[address] [place] [address] 91224 MCV (RBC) [Entitic vol] 78 fL Low 80-100 [facility] Comment on above: Performed By: #### 5 7021-8 ####BHANU Treviño ([id number])[facility] ([facility])[address] [place] [address] 57732 Monocytes (Bld) [#/Vol] 1.07 x10*3/uL High 0.10-1.00 [facility] Comment on above: Performed By: #### 5 7021-8 ####BHANU Treviño ([id number])[facility] ([facility])[address]64 [place] [address] Monocytes/100 WBC (Bld) 11.3 % Normal 2.0-10.0 [facility] Comment on above: Performed By: #### 5 7021-8 ####BHANU Treviño ([id number])[facility] ([facility])[id number] [place] [address] 78473 Neutrophils (Bld) [#/Vol] 6.87 x10*3/uL Normal 1.20-7.70 [facility] Comment on above: Result Comment: Perc ent differential counts (%) should be interpreted in the context of the absolute cell counts (cells/uL). Performed By: #### 5 7021-8 ####BHANU Treviño ([id number])[facility] ([facility])[id number] [place] [address] 06118 Neutrophils/100 WBC (Bld) 72.3 % Normal 40.0-80.0 [facility] Comment on above: Performed By: #### 5 7021-8 ####BHANU Treviño ([id number])[facility] ([facility])[address] [place] [address] 92877 Nucleated RBC/100 WBC (Bld) [Ratio] 0.0 /100 WBCs Normal 0.0-0.0 [facility] Comment on above: Performed By: #### 5 7021-8 ####BHANU Treviño ([id number])[facility] ([facility])[address] [place] [address] Platelets (Bld) [#/Vol] 722 x10*3/uL High 150-450 [facility] Comment on above: Performed By: #### 5 7021-8 ####BHANU Treviño ([id number])[facility] ([facility])[id number] [place] [address] 45766 RBC (Bld) [#/Vol] 3.51 x10*6/uL Low 4.50-5.90 [facility] Comment on above: Performed By: #### 5 7021-8 ####BHANU Treviño ([id number])[facility] ([facility])[address] [place] [address] WBC (Bld) [#/Vol] 9.5 x10*3/uL Normal 4.4-11.3 [facility] Comment on above: Performed By: #### 5 7021-8 ####BHANU Treviño ([id number])[facility] ([facility])[address]39 [place] [address] Basophils (Bld) [#/Vol] 0.07 x10*3/uL Normal 0.00-0.10 [facility] Comment on above: Performed By: #### 5 7021-8 ####BHANU Treviño ([id number])[facility] ([facility])[address]48 [place] [address] Basophils/100 WBC (Bld) 0.8 % Normal 0.0-2.0 [facility] Comment on above: Performed By: #### 5 7021-8 ####BHANU Treviño ([id number])[facility] ([facility])[address]78 [place] [address] Eosinophils (Bld) [#/Vol] 0.09 x10*3/uL Normal 0.00-0.70 [facility] Comment on above: Performed By: #### 5 7021-8 ####BHANU Treviño ([id number])[facility] ([facility])[address]014 [place] [address] Eosinophils/100 WBC (Bld) 1.1 % Normal 0.0-6.0 [facility] Comment on above: Performed By: #### 5 7021-8 ####BHANU Treviño ([id number])[facility] ([facility])[address]365 [place] [address] Erythrocyte distribution width (RBC) [Ratio] 19.7 % High 11.5-14.5 [facility] Comment on above: Performed By: #### 5 7021-8 ####BHANU Treviño ([id number])[facility] ([facility])[address]88 [place] [address] Hematocrit (Bld) [Volume fraction] 27.4 % Low 41.0-52.0 [facility] Comment on above: Performed By: #### 5 7021-8 ####BHANU Treviño ([id number])[facility] ([facility])[address]62 [place] [address] Hemoglobin (Bld) [Mass/Vol] 8.6 g/dL Low 13.5-17.5 [facility] Comment on above: Performed By: #### 5 7021-8 ####BHANU Treviño ([id number])[facility] ([facility])[id number] [place] [address] 19670 Immature granulocytes (Bld) [#/Vol] 0.04 x10*3/uL Normal 0.00-0.70 [facility] Comment on above: Performed By: #### 5 7021-8 ####BHANU Treviño ([id number])[facility] ([facility])[address] [place] [address] 72329 Immature granulocytes/100 WBC (Bld) 0.5 % Normal 0.0-0.9 [facility] Comment on above: Result Comment: Christine ture Granulocyte Count (IG) includes promyelocytes, myelocytes and metamyelocytes but does not include bands. Percent differential counts (%) should be interpreted in the context of the absolute cell counts (cells/UL). Performed By: #### 5 7021-8 ####BHANU Treviño ([id number])[facility] ([facility])[address]58 [place] [address] Lymphocytes (Bld) [#/Vol] 1.33 x10*3/uL Normal 1.20-4.80 [facility] Comment on above: Performed By: #### 5 7021-8 ####BHANU Treviño ([id number])[facility] ([facility])[address]98 [place] [address] Lymphocytes/100 WBC (Bld) 15.8 % Normal 13.0-44.0 [facility] Comment on above: Performed By: #### 5 7021-8 ####BHANU Treviño ([id number])[facility] ([facility])[address]36 [place] [address] MCH (RBC) [Entitic mass] 24.1 pg Low 26.0-34.0 [facility] Comment on above: Performed By: #### 5 7021-8 ####BHANU Treviño ([id number])[facility] ([facility])[address]28 [place] [address] MCHC (RBC) [Mass/Vol] 31.4 g/dL Low 32.0-36.0 [facility] Comment on above: Performed By: #### 5 7021-8 ####BHANU Treviño ([id number])[facility] ([facility])[address]79 [place] [address] MCV (RBC) [Entitic vol] 77 fL Low 80-100 [facility] Comment on above: Performed By: #### 5 7021-8 ####BHANU Treviño ([id number])[facility] ([facility])[address]573 [place] [address] Monocytes (Bld) [#/Vol] 1.12 x10*3/uL High 0.10-1.00 [facility] Comment on above: Performed By: #### 5 7021-8 ####BHANU Treviño ([id number])[facility] ([facility])[address]205 [place] [address] Monocytes/100 WBC (Bld) 13.3 % Normal 2.0-10.0 [facility] Comment on above: Performed By: #### 5 7021-8 ####BHANU GREGORY L ([id number])[facility] ([facility])24351 [place] [address] Neutrophils (Bld) [#/Vol] 5.79 x10*3/uL Normal 1.20-7.70 [facility] Comment on above: Result Comment: Perc ent differential counts (%) should be interpreted in the context of the absolute cell counts (cells/uL). Performed By: #### 5 7021-8 ####BHANU Treviño ([id number])[facility] ([facility])[address]65 [place] [address] Neutrophils/100 WBC (Bld) 68.5 % Normal 40.0-80.0 [facility] Comment on above: Performed By: #### 5 7021-8 ####BHANU Treviño ([id number])[facility] ([facility])[address] [place] [address] 56463 Nucleated RBC/100 WBC (Bld) [Ratio] 0.0 /100 WBCs Normal 0.0-0.0 [facility] Comment on above: Performed By: #### 5 7021-8 ####BHANU Treviño ([id number])[facility] ([facility])[address] [place] [address] 47454 Platelets (Bld) [#/Vol] 737 x10*3/uL High 150-450 [facility] Comment on above: Performed By: #### 5 7021-8 ####BHANU Treviño ([id number])[facility] ([facility])[address] [place] [address] 81304 RBC (Bld) [#/Vol] 3.57 x10*6/uL Low 4.50-5.90 [facility] Comment on above: Performed By: #### 5 7021-8 ####BHANU Treviño ([id number])[facility] ([facility])[address] [place] [address] 25099 WBC (Bld) [#/Vol] 8.4 x10*3/uL Normal 4.4-11.3 [facility] Comment on above: Performed By: #### 5 7021-8 ####BHANU Treviño ([id number])[facility] ([facility])[address]408 [place] [address] Comprehensive metabolic 2000 panelon 01-24-2025 Albumin BCP dye [Mass/Vol] 2.4 g/dL Low 3.4-5.0 [facility] Comment on above: Performed By: #### 2 4323-8 ####BHANU Treviño ([id number])[facility] ([facility])[address]28 [place] [address] ALP [Catalytic activity/Vol] 70 U/L Normal 33-120 [facility] Comment on above: Performed By: #### 2 4323-8 ####BHNAU Treviño (05340)[facility] ([facility])[address]202 [place] [address] ALT With P-5'-P [Catalytic activity/Vol] 38 U/L Normal 10-52 [facility] Comment on above: Result Comment: Sydni ents treated with Sulfasalazine may generate falsely decreased results for ALT. Performed By: #### 2 4323-8 ####BHANU Treviño ([id number])[facility] ([facility])[address]25 [place] [address] Anion gap [Moles/Vol] 13 mmol/L Normal 10-20 [facility] Comment on above: Performed By: #### 2 4323-8 ####BHANU Treviño ([id number])[facility] ([facility])[address]34 [place] [address] AST With P-5'-P [Catalytic activity/Vol] 46 U/L High 9-39 [facility] Comment on above: Performed By: #### 2 4323-8 ####BHANU Treviño ([id number])[facility] ([facility])[address]10 [place] [address] Bilirubin [Mass/Vol] 0.3 mg/dL Normal 0.0-1.2 [facility] Comment on above: Performed By: #### 2 4323-8 ####BHANU Treviño ([id number])[facility] ([facility])[address]14 [place] [address] Calcium [Mass/Vol] 8.5 mg/dL Low 8.6-10.6 [facility] Comment on above: Performed By: #### 2 4323-8 ####BHANU GREGORY L ([id number])[facility] ([facility])[address] [place] [address] Chloride [Moles/Vol] 101 mmol/L Normal 98-107 [facility] Comment on above: Performed By: #### 2 4323-8 ####BHANU GREGORY L ([id number])[facility] ([facility])[address] [place] [address] CO2 [Moles/Vol] 27 mmol/L Normal 21-32 [facility] Comment on above: Performed By: #### 2 4323-8 ####BHANU GREGORY L ([id number])[facility] ([facility])[address] [place] [address] Creatinine [Mass/Vol] 1.20 mg/dL Normal 0.50-1.30 [facility] Comment on above: Performed By: #### 2 4323-8 ####BHANU GREGORY L ([id number])[facility] ([facility])[address] [place] [address] Glomerular filtration rate/1.73 sq M.predicted 73 mL/min/1.73m*2 Normal >60 [facility] Comment on above: Result Comment: Calc ulations of estimated GFR are performed using the 2020 CKD-EPI Study Refit equation without the race variable for the IDMS-Traceable creatinine methods.https://jasn.asnjournals.org/content//A [email or web address] Performed By: #### 2 4323-8 ####BHANU GREGORY L ([id number])[facility] ([facility])[address] [place] [address] Glucose [Mass/Vol] 103 mg/dL High 74-99 [facility] Comment on above: Performed By: #### 2 4323-8 ####BHANU GREGORY L ([id number])[facility] ([facility])[address] [place] [address] Potassium [Moles/Vol] 4.1 mmol/L Normal 3.5-5.3 [facility] Comment on above: Performed By: #### 2 4323-8 ####BHANU Treviño ([id number])[facility] ([facility])[id number] [place] [id number] Protein [Mass/Vol] 6.5 g/dL Normal 6.4-8.2 [facility] Comment on above: Performed By: #### 2 4323-8 ####BHANU Treviño ([id number])[facility] ([facility])[id number] [place] [address] 88351 Sodium [Moles/Vol] 137 mmol/L Normal 136-145 [facility] Comment on above: Performed By: #### 2 4323-8 ####BHANU Treviño ([id number])[facility] ([facility])[id number] [place] [address] 53010 Urea nitrogen [Mass/Vol] 10 mg/dL Normal 6-23 [facility] Comment on above: Performed By: #### 2 4323-8 ####BHANU Treviño ([id number])[facility] ([facility])[address] [place] [address] 32805 Magnesiumon 01-24-2025 Magnesium [Mass/Vol] 1.89 mg/dL Normal 1.60-2.40 [facility] Comment on above: Performed By: #### 1 9123-9 ####BHANU Treviño ([id number])[facility] ([facility])[id number] [place] [address] 73962 RBC shape Nom (Bld)on 2024 Hypochromia Ql (Bld) Mild Normal [facility] Comment on above: Performed By: #### 1 8225-3 ####BHANU Treviño ([id number])[facility] ([facility])[id number] [place] [address] 81774 RBC morphology finding Nom (Bld) See Below Normal [facility] Comment on above: Performed By: #### 1 8225-3 ####BHANU Treviño ([id number])[facility] ([facility])[address] [place] [address] Stomatocytes LM Ql (Bld) Few Normal [facility] Comment on above: Performed By: #### 1 8225-3 ####BHANU Treviño ([id number])[facility] ([facility])[address]10 [place] [address] CBC W Auto Differential pane l (Bld)on 01-23-2025 Basophils (Bld) [#/Vol] 0.08 x10*3/uL Normal 0.00-0.10 [facility] Comment on above: Performed By: #### 5 7021-8 ####BHANU Treviño ([id number])[facility] ([facility])[address]805 [place] [address] Basophils/100 WBC (Bld) 0.9 % Normal 0.0-2.0 [facility] Comment on above: Performed By: #### 5 7021-8 ####BHANU Treviño ([id number])[facility] ([facility])[address]25 [place] [address] Eosinophils (Bld) [#/Vol] 0.57 x10*3/uL Normal 0.00-0.70 [facility] Comment on above: Performed By: #### 5 7021-8 ####BHANU Treviño ([id number])[facility] ([facility])[address]80 [place] [address] Eosinophils/100 WBC (Bld) 6.5 % Normal 0.0-6.0 [facility] Comment on above: Performed By: #### 5 7021-8 ####BHANU Treviño ([id number])[facility] ([facility])[address] [place] [address] Erythrocyte distribution width (RBC) [Ratio] 19.8 % High 11.5-14.5 [facility] Comment on above: Performed By: #### 5 7021-8 ####BHANU Treviño ([id number])[facility] ([facility])[address]328 [place] [address] Hematocrit (Bld) [Volume fraction] 26.8 % Low 41.0-52.0 [facility] Comment on above: Performed By: #### 5 7021-8 ####BHANU Treviño ([id number])[facility] ([facility])[address]84 [place] [address] Hemoglobin (Bld) [Mass/Vol] 8.5 g/dL Low 13.5-17.5 [facility] Comment on above: Performed By: #### 5 7021-8 ####BHANU Treviño ([id number])[facility] ([facility])[address]83 [place] [address] Immature granulocytes (Bld) [#/Vol] 0.05 x10*3/uL Normal 0.00-0.70 [facility] Comment on above: Performed By: #### 5 7021-8 ####BHANU Treviño ([id number])[facility] ([facility])[address]98 [place] [address] Immature granulocytes/100 WBC (Bld) 0.6 % Normal 0.0-0.9 [facility] Comment on above: Result Comment: Christine ture Granulocyte Count (IG) includes promyelocytes, myelocytes and metamyelocytes but does not include bands. Percent differential counts (%) should be interpreted in the context of the absolute cell counts (cells/UL). Performed By: #### 5 7021-8 ####BHANU Treviño ([id number])[facility] ([facility])25331 [place] [address] Lymphocytes (Bld) [#/Vol] 1.22 x10*3/uL Normal 1.20-4.80 [facility] Comment on above: Performed By: #### 5 7021-8 ####BHANU Treviño ([id number])[facility] ([facility])[address]70 [place] [address] Lymphocytes/100 WBC (Bld) 14.0 % Normal 13.0-44.0 [facility] Comment on above: Performed By: #### 5 7021-8 ####BHANU Treviño ([id number])[facility] ([facility])35179 [place] [address] MCH (RBC) [Entitic mass] 24.6 pg Low 26.0-34.0 [facility] Comment on above: Performed By: #### 5 7021-8 ####BHANU Treviño ([id number])[facility] ([facility])[id number] [place] [address] 51946 MCHC (RBC) [Mass/Vol] 31.7 g/dL Low 32.0-36.0 [facility] Comment on above: Performed By: #### 5 7021-8 ####BHANU Treviño ([id number])[facility] ([facility])[id number] [place] [address] 45201 MCV (RBC) [Entitic vol] 78 fL Low 80-100 [facility] Comment on above: Performed By: #### 5 7021-8 ####BHANU Treviño ([id number])[facility] ([facility])[address] [place] [address] 30739 Monocytes (Bld) [#/Vol] 0.90 x10*3/uL Normal 0.10-1.00 [facility] Comment on above: Performed By: #### 5 7021-8 ####BHANU Treviño ([id number])[facility] ([facility])[id number] [place] [address] 22131 Monocytes/100 WBC (Bld) 10.3 % Normal 2.0-10.0 [facility] Comment on above: Performed By: #### 5 7021-8 ####BHANU Treviño ([id number])[facility] ([facility])[id number] [place] [address] 54337 Neutrophils (Bld) [#/Vol] 5.91 x10*3/uL Normal 1.20-7.70 [facility] Comment on above: Result Comment: Perc ent differential counts (%) should be interpreted in the context of the absolute cell counts (cells/uL). Performed By: #### 5 7021-8 ####BHANU Treviño ([id number])[facility] ([facility])[address]682 [place] [address] Neutrophils/100 WBC (Bld) 67.7 % Normal 40.0-80.0 [facility] Comment on above: Performed By: #### 5 7021-8 ####BHANU Treviño ([id number])[facility] ([facility])31889 [place] [address] Nucleated RBC/100 WBC (Bld) [Ratio] 0.0 /100 WBCs Normal 0.0-0.0 [facility] Comment on above: Performed By: #### 5 7021-8 ####BHANU Treviño ([id number])[facility] ([facility])55405 [place] [address] Platelets (Bld) [#/Vol] 760 x10*3/uL High 150-450 [facility] Comment on above: Performed By: #### 5 7021-8 ####BHANU Treviño ([id number])[facility] ([facility])[address]27 [place] [address] RBC (Bld) [#/Vol] 3.46 x10*6/uL Low 4.50-5.90 [facility] Comment on above: Performed By: #### 5 7021-8 ####BHANU Treviño ([id number])[facility] ([facility])[address]59 [place] [address] WBC (Bld) [#/Vol] 8.7 x10*3/uL Normal 4.4-11.3 [facility] Comment on above: Performed By: #### 5 7021-8 ####BHANU Treviño ([id number])[facility] ([facility])[address]01 [place] [address] Basophils (Bld) [#/Vol] 0.07 x10*3/uL Normal 0.00-0.10 [facility] Comment on above: Performed By: #### 5 7021-8 ####BHANU Treviño ([id number])[facility] ([facility])[address] [place] [address] 84042 Basophils/100 WBC (Bld) 0.8 % Normal 0.0-2.0 [facility] Comment on above: Performed By: #### 5 7021-8 ####BHANU GREGORY L ([id number])[facility] ([facility])[address] [place] [address] 90452 Eosinophils (Bld) [#/Vol] 0.36 x10*3/uL Normal 0.00-0.70 [facility] Comment on above: Performed By: #### 5 7021-8 ####BHANU GREGORY L ([id number])[facility] ([facility])[address] [place] [address] 67584 Eosinophils/100 WBC (Bld) 4.2 % Normal 0.0-6.0 [facility] Comment on above: Performed By: #### 5 7021-8 ####BHANU Treviño ([id number])[facility] ([facility])[address] [place] [address] 74774 Erythrocyte distribution width (RBC) [Ratio] 19.9 % High 11.5-14.5 [facility] Comment on above: Performed By: #### 5 7021-8 ####BHANU GREGORY L ([id number])[facility] ([facility])[address] [place] [address] 73479 Hematocrit (Bld) [Volume fraction] 28.0 % Low 41.0-52.0 [facility] Comment on above: Performed By: #### 5 7021-8 ####BHANU GREGORY L ([id number])[facility] ([facility])[address] [place] [address] 55592 Hemoglobin (Bld) [Mass/Vol] 8.7 g/dL Low 13.5-17.5 [facility] Comment on above: Performed By: #### 5 7021-8 ####BHANU Treviño ([id number])[facility] ([facility])[address]897 [place] [address] Immature granulocytes (Bld) [#/Vol] 0.05 x10*3/uL Normal 0.00-0.70 [facility] Comment on above: Performed By: #### 5 7021-8 ####BHANU Treviño ([id number])[facility] ([facility])86304 [place] [address] Immature granulocytes/100 WBC (Bld) 0.6 % Normal 0.0-0.9 [facility] Comment on above: Result Comment: Christine ture Granulocyte Count (IG) includes promyelocytes, myelocytes and metamyelocytes but does not include bands. Percent differential counts (%) should be interpreted in the context of the absolute cell counts (cells/UL). Performed By: #### 5 7021-8 ####BHANU Treviño ([id number])[facility] ([facility])[address]401 [place] [address] Lymphocytes (Bld) [#/Vol] 0.89 x10*3/uL Low 1.20-4.80 [facility] Comment on above: Performed By: #### 5 7021-8 ####BHANU Treviño ([id number])[facility] ([facility])[address]842 [place] [address] Lymphocytes/100 WBC (Bld) 10.5 % Normal 13.0-44.0 [facility] Comment on above: Performed By: #### 5 7021-8 ####BHANU Treviño ([id number])[facility] ([facility])[address]321 [place] [address] MCH (RBC) [Entitic mass] 24.4 pg Low 26.0-34.0 [facility] Comment on above: Performed By: #### 5 7021-8 ####BHANU Treviño ([id number])[facility] ([facility])33287 [place] [address] MCHC (RBC) [Mass/Vol] 31.1 g/dL Low 32.0-36.0 [facility] Comment on above: Performed By: #### 5 7021-8 ####BHANU Treviño ([id number])[facility] ([facility])[address]69 [place] [address] MCV (RBC) [Entitic vol] 78 fL Low 80-100 [facility] Comment on above: Performed By: #### 5 7021-8 ####BHANU Treviño ([id number])[facility] ([facility])[address]93 [place] [address] Monocytes (Bld) [#/Vol] 0.89 x10*3/uL Normal 0.10-1.00 [facility] Comment on above: Performed By: #### 5 7021-8 ####BHANU Treviño ([id number])[facility] ([facility])41327 [place] [address] Monocytes/100 WBC (Bld) 10.5 % Normal 2.0-10.0 [facility] Comment on above: Performed By: #### 5 7021-8 ####BHANU Treviño ([id number])[facility] ([facility])71795 [place] [address] Neutrophils (Bld) [#/Vol] 6.23 x10*3/uL Normal 1.20-7.70 [facility] Comment on above: Result Comment: Perc ent differential counts (%) should be interpreted in the context of the absolute cell counts (cells/uL). Performed By: #### 5 7021-8 ####BHANU Treviño ([id number])[facility] ([facility])[address]34 [place] [address] Neutrophils/100 WBC (Bld) 73.4 % Normal 40.0-80.0 [facility] Comment on above: Performed By: #### 5 7021-8 ####BHANU Treviño (48334)[facility] ([facility])[address]65 [place] [address] Nucleated RBC/100 WBC (Bld) [Ratio] 0.0 /100 WBCs Normal 0.0-0.0 [facility] Comment on above: Performed By: #### 5 7021-8 ####BHANU Treviño ([id number])[facility] ([facility])[address]704 [place] [address] Platelets (Bld) [#/Vol] 749 x10*3/uL High 150-450 [facility] Comment on above: Performed By: #### 5 7021-8 ####BHANU Treviño ([id number])[facility] ([facility])16543 [place] [address] RBC (Bld) [#/Vol] 3.57 x10*6/uL Low 4.50-5.90 [facility] Comment on above: Performed By: #### 5 7021-8 ####BHANU Treviño ([id number])[facility] ([facility])65572 [place] [address] WBC (Bld) [#/Vol] 8.5 x10*3/uL Normal 4.4-11.3 [facility] Comment on above: Performed By: #### 5 7021-8 ####BHANU Treviño ([id number])[facility] ([facility])[address]456 [place] [address] Comprehensive metabolic 2000 panelon 01-23-2025 Albumin BCP dye [Mass/Vol] 2.3 g/dL Low 3.4-5.0 [facility] Comment on above: Performed By: #### 2 4323-8 ####BHANU Treviño ([id number])[facility] ([facility])41253 [place] [address] ALP [Catalytic activity/Vol] 72 U/L Normal 33-120 [facility] Comment on above: Performed By: #### 2 4323-8 ####BHANU Treviño ([id number])[facility] ([facility])[address]35 [place] [address] ALT With P-5'-P [Catalytic activity/Vol] 38 U/L Normal 10-52 [facility] Comment on above: Result Comment: Sydni ents treated with Sulfasalazine may generate falsely decreased results for ALT. Performed By: #### 2 4323-8 ####BHANU Treviño ([id number])[facility] ([facility])[address] [facility] [place] [address] Anion gap [Moles/Vol] 14 mmol/L Normal 10-20 [facility] Comment on above: Performed By: #### 2 4323-8 ####BHANU Treviño ([id number])[facility] ([facility])88609 [place] [address] AST With P-5'-P [Catalytic activity/Vol] 56 U/L High 9-39 [facility] Comment on above: Performed By: #### 2 4323-8 ####BHANU Treviño ([id number])[facility] ([facility])[address]2012 [place] [address] Bilirubin [Mass/Vol] 0.4 mg/dL Normal 0.0-1.2 [facility] Comment on above: Performed By: #### 2 4323-8 ####BHANU Treviño (52461)[facility] ([facility])75285 [place] [address] Calcium [Mass/Vol] 8.0 mg/dL Low 8.6-10.6 [facility] Comment on above: Performed By: #### 2 4323-8 ####BHANU Treviño (81413)[facility] ([facility])[address]57 [facility] [address] Chloride [Moles/Vol] 102 mmol/L Normal 98-107 [facility] Comment on above: Performed By: #### 2 4323-8 ####BHANU Treviño ([id number])[facility] ([facility])[address] [place] [address] CO2 [Moles/Vol] 27 mmol/L Normal 21-32 [facility] Comment on above: Performed By: #### 2 4323-8 ####BHANU GREGORY L ([id number])[facility] ([facility])09331 [place] [address] Creatinine [Mass/Vol] 1.23 mg/dL Normal 0.50-1.30 [facility] Comment on above: Performed By: #### 2 4323-8 ####BHANU GREGORY L ([id number])[facility] ([facility])10405 [place] [address] Glomerular filtration rate/1.73 sq M.predicted 71 mL/min/1.73m*2 Normal >60 [facility] Comment on above: Result Comment: Calc ulations of estimated GFR are performed using the 2020 CKD-EPI Study Refit equation without the race variable for the IDMS-Traceable creatinine methods.https://jasn.asnjournals.org/content//A .1946665929 Performed By: #### 2 4323-8 ####BHANU GREGORY L (55356)[facility] ([facility])27479 [place] [address] Glucose [Mass/Vol] 87 mg/dL Normal 74-99 [facility] Comment on above: Performed By: #### 2 4323-8 ####BHANU GREGORY L (84362)[facility] ([facility])[address]6599 [place] [address] Potassium [Moles/Vol] 4.7 mmol/L Normal 3.5-5.3 [facility] Comment on above: Performed By: #### 2 4323-8 ####BHANU GREGORY L ([id number])[facility] ([facility])[address]10 [place] [address] Protein [Mass/Vol] 5.8 g/dL Low 6.4-8.2 [facility] Comment on above: Performed By: #### 2 4323-8 ####BHANU GREGORY L ([id number])[facility] ([facility])56548 [place] [address] Sodium [Moles/Vol] 138 mmol/L Normal 136-145 [facility] Comment on above: Performed By: #### 2 4323-8 ####BHANU Treviño ([id number])[facility] ([facility])55106 [place] [address] Urea nitrogen [Mass/Vol] 8 mg/dL Normal 6-23 [facility] Comment on above: Performed By: #### 2 4323-8 ####BHANU Treviño ([id number])[facility] ([facility])[id number] [place] [address] 97906 Magnesiumon 01-23-2025 Magnesium [Mass/Vol] 1.98 mg/dL Normal 1.60-2.40 [facility] Comment on above: Performed By: #### 1 9123-9 ####BHANU Treviño ([id number])[facility] ([facility])[id number] [place] [address] 88685 CBC W Auto Differential pane l (Bld)on 01-22-2025 Basophils (Bld) [#/Vol] 0.07 x10*3/uL Normal 0.00-0.10 [facility] Comment on above: Performed By: #### 5 7021-8 ####BHAUN Treviño ([id number])[facility] ([facility])[address]677 [place] [address] Basophils/100 WBC (Bld) 0.8 % Normal 0.0-2.0 [facility] Comment on above: Performed By: #### 5 7021-8 ####BHANU Treviño ([id number])[facility] ([facility])[id number] [place] [address]78 Eosinophils (Bld) [#/Vol] 0.11 x10*3/uL Normal 0.00-0.70 [facility] Comment on above: Performed By: #### 5 7021-8 ####BHANU Treviño (62248)[facility] ([facility])[address]10 [place] [address] Eosinophils/100 WBC (Bld) 1.2 % Normal 0.0-6.0 [facility] Comment on above: Performed By: #### 5 7021-8 ####BHANU Treviño ([id number])[facility] ([facility])93327 [place] [address] Erythrocyte distribution width (RBC) [Ratio] 19.7 % High 11.5-14.5 [facility] Comment on above: Performed By: #### 5 7021-8 ####BHANU Treviño ([id number])[facility] ([facility])[id number] [place] [address] 30554 Hematocrit (Bld) [Volume fraction] 27.5 % Low 41.0-52.0 [facility] Comment on above: Performed By: #### 5 7021-8 ####BHANU Treviño ([id number])[facility] ([facility])[id number] [place] [address] 79621 Hemoglobin (Bld) [Mass/Vol] 8.5 g/dL Low 13.5-17.5 [facility] Comment on above: Performed By: #### 5 7021-8 ####BHANU Treviño ([id number])[facility] ([facility])[id number] [place] [address] 72753 Immature granulocytes (Bld) [#/Vol] 0.03 x10*3/uL Normal 0.00-0.70 [facility] Comment on above: Performed By: #### 5 7021-8 ####BHANU Treviño (63525)[facility] ([facility])[address]400 [place] [address] Immature granulocytes/100 WBC (Bld) 0.3 % Normal 0.0-0.9 [facility] Comment on above: Result Comment: Christine ture Granulocyte Count (IG) includes promyelocytes, myelocytes and metamyelocytes but does not include bands. Percent differential counts (%) should be interpreted in the context of the absolute cell counts (cells/UL). Performed By: #### 5 7021-8 ####BHANU Treviño ([id number])[facility] ([facility])[address] [place] [address] Lymphocytes (Bld) [#/Vol] 1.05 x10*3/uL Low 1.20-4.80 [facility] Comment on above: Performed By: #### 5 7021-8 ####BHANU Treviño ([id number])[facility] ([facility])[id number] [place] [id number] Lymphocytes/100 WBC (Bld) 11.7 % Normal 13.0-44.0 [facility] Comment on above: Performed By: #### 5 7021-8 ####BHANU Treviño ([id number])[facility] ([facility])[id number] [place] [address] MCH (RBC) [Entitic mass] 23.8 pg Low 26.0-34.0 [facility] Comment on above: Performed By: #### 5 7021-8 ####BHANU Treviño ([id number])[facility] ([facility])[id number] [place] [id number] MCHC (RBC) [Mass/Vol] 30.9 g/dL Low 32.0-36.0 [facility] Comment on above: Performed By: #### 5 7021-8 ####BHANU Treviño ([id number])[facility] ([facility])[id number] [place] [address] MCV (RBC) [Entitic vol] 77 fL Low 80-100 [facility] Comment on above: Performed By: #### 5 7021-8 ####BHANU Treviño ([id number])[facility] ([facility])[id number] [place] [address] Monocytes (Bld) [#/Vol] 1.01 x10*3/uL High 0.10-1.00 [facility] Comment on above: Performed By: #### 5 7021-8 ####BHANU Treviño ([id number])[facility] ([facility])[address] [place] [address] Monocytes/100 WBC (Bld) 11.3 % Normal 2.0-10.0 [facility] Comment on above: Performed By: #### 5 7021-8 ####BHANU Treviño ([id number])[facility] ([facility])[address]32 [place] [address] Neutrophils (Bld) [#/Vol] 6.68 x10*3/uL Normal 1.20-7.70 [facility] Comment on above: Result Comment: Perc ent differential counts (%) should be interpreted in the context of the absolute cell counts (cells/uL). Performed By: #### 5 7021-8 ####BHANU Treviño ([id number])[facility] ([facility])[address]44 [place] [address] Neutrophils/100 WBC (Bld) 74.7 % Normal 40.0-80.0 [facility] Comment on above: Performed By: #### 5 7021-8 ####BHANU Treviño ([id number])[facility] ([facility])[address]11 [place] [address] Nucleated RBC/100 WBC (Bld) [Ratio] 0.0 /100 WBCs Normal 0.0-0.0 [facility] Comment on above: Performed By: #### 5 7021-8 ####BHANU Treviño ([id number])[facility] ([facility])[address]12 [place] [address] Platelets (Bld) [#/Vol] 769 x10*3/uL High 150-450 [facility] Comment on above: Performed By: #### 5 7021-8 ####BHANU Treviño ([id number])[facility] ([facility])[address]109 [place] [address] RBC (Bld) [#/Vol] 3.57 x10*6/uL Low 4.50-5.90 [facility] Comment on above: Performed By: #### 5 7021-8 ####BHANU Treviño ([id number])[facility] ([facility])[address]87 [place] [address] WBC (Bld) [#/Vol] 9.0 x10*3/uL Normal 4.4-11.3 [facility] Comment on above: Performed By: #### 5 7021-8 ####BHANU Treviño ([id number])[facility] ([facility])[address]249 [place] [address] Basophils (Bld) [#/Vol] 0.06 x10*3/uL Normal 0.00-0.10 [facility] Comment on above: Performed By: #### 5 7021-8 ####BHANU Treviño ([id number])[facility] ([facility])[address]57 [place] [address] Basophils/100 WBC (Bld) 0.7 % Normal 0.0-2.0 [facility] Comment on above: Performed By: #### 5 7021-8 ####BHANU Treviño ([id number])[facility] ([facility])[address]402 [place] [address] Eosinophils (Bld) [#/Vol] 0.51 x10*3/uL Normal 0.00-0.70 [facility] Comment on above: Performed By: #### 5 7021-8 ####BHANU Treviño ([id number])[facility] ([facility])[address]01 [place] [address] Eosinophils/100 WBC (Bld) 6.3 % Normal 0.0-6.0 [facility] Comment on above: Performed By: #### 5 7021-8 ####BHANU Treviño ([id number])[facility] ([facility])[address]303 [place] [address] Erythrocyte distribution width (RBC) [Ratio] 19.9 % High 11.5-14.5 [facility] Comment on above: Performed By: #### 5 7021-8 ####BHANU Treviño ([id number])[facility] ([facility])09024 [place] [address] Hematocrit (Bld) [Volume fraction] 26.6 % Low 41.0-52.0 [facility] Comment on above: Performed By: #### 5 7021-8 ####BHANU Treviño ([id number])[facility] ([facility])46331 [place] [address] Hemoglobin (Bld) [Mass/Vol] 8.4 g/dL Low 13.5-17.5 [facility] Comment on above: Performed By: #### 5 7021-8 ####BHANU Treviño ([id number])[facility] ([facility])[address] [place] [address] Immature granulocytes (Bld) [#/Vol] 0.05 x10*3/uL Normal 0.00-0.70 [facility] Comment on above: Performed By: #### 5 7021-8 ####BHANU Treviño ([id number])[facility] ([facility])14460 [place] [address] Immature granulocytes/100 WBC (Bld) 0.6 % Normal 0.0-0.9 [facility] Comment on above: Result Comment: Christine ture Granulocyte Count (IG) includes promyelocytes, myelocytes and metamyelocytes but does not include bands. Percent differential counts (%) should be interpreted in the context of the absolute cell counts (cells/UL). Performed By: #### 5 7021-8 ####BHANU Treviño ([id number])[facility] ([facility])[address]32 [place] [address] Lymphocytes (Bld) [#/Vol] 1.07 x10*3/uL Low 1.20-4.80 [facility] Comment on above: Performed By: #### 5 7021-8 ####BHANU Treviño ([id number])[facility] ([facility])06356 [place] [address] Lymphocytes/100 WBC (Bld) 13.2 % Normal 13.0-44.0 [facility] Comment on above: Performed By: #### 5 7021-8 ####BHANU Treviño ([id number])[facility] ([facility])70558 [place] [address] MCH (RBC) [Entitic mass] 24.3 pg Low 26.0-34.0 [facility] Comment on above: Performed By: #### 5 7021-8 ####BHANU Treviño ([id number])[facility] ([facility])[address] [place] [address] MCHC (RBC) [Mass/Vol] 31.6 g/dL Low 32.0-36.0 [facility] Comment on above: Performed By: #### 5 7021-8 ####BHANU Treviño ([id number])[facility] ([facility])[id number] [place] [address]343 MCV (RBC) [Entitic vol] 77 fL Low 80-100 [facility] Comment on above: Performed By: #### 5 7021-8 ####BHANU Treviño ([id number])[facility] ([facility])[id number] [place] [address]4783 Monocytes (Bld) [#/Vol] 0.88 x10*3/uL Normal 0.10-1.00 [facility] Comment on above: Performed By: #### 5 7021-8 ####BHANU Treviño ([id number])[facility] ([facility])[address]24 [place] [address] Monocytes/100 WBC (Bld) 10.8 % Normal 2.0-10.0 [facility] Comment on above: Performed By: #### 5 7021-8 ####BHANU Treviño ([id number])[facility] ([facility])[address] [place] [address] Neutrophils (Bld) [#/Vol] 5.55 x10*3/uL Normal 1.20-7.70 [facility] Comment on above: Result Comment: Perc ent differential counts (%) should be interpreted in the context of the absolute cell counts (cells/uL). Performed By: #### 5 7021-8 ####BHANU Treviño ([id number])[facility] ([facility])[address]108 [place] [address] Neutrophils/100 WBC (Bld) 68.4 % Normal 40.0-80.0 [facility] Comment on above: Performed By: #### 5 7021-8 ####BHANU GREGORY L ([id number])[facility] ([facility])[id number] [place] [address] Nucleated RBC/100 WBC (Bld) [Ratio] 0.0 /100 WBCs Normal 0.0-0.0 [facility] Comment on above: Performed By: #### 5 7021-8 ####BHANU GREGORY L ([id number])[facility] ([facility])[id number] [place] [address]59[address] Platelets (Bld) [#/Vol] 713 x10*3/uL High 150-450 [facility] Comment on above: Performed By: #### 5 7021-8 ####BHANU GREGORY L ([id number])[facility] ([facility])[id number] [place] [address] 34198 RBC (Bld) [#/Vol] 3.45 x10*6/uL Low 4.50-5.90 [facility] Comment on above: Performed By: #### 5 7021-8 ####BHANU FLEMINGMOJOSEFA L ([id number])[facility] ([facility])[address] [place] [address]23 WBC (Bld) [#/Vol] 8.1 x10*3/uL Normal 4.4-11.3 [facility] Comment on above: Performed By: #### 5 7021-8 ####BHANU FLEMINGMOTZER L ([id number])[facility] ([facility])[address]010 [place] [address] Comprehensive metabolic 2000 panelon 01-22-2025 Albumin BCP dye [Mass/Vol] 2.2 g/dL Low 3.4-5.0 [facility] Comment on above: Performed By: #### 2 4323-8 ####BHANU Treviño ([id number])[facility] ([facility])10993 [place] [address] ALP [Catalytic activity/Vol] 68 U/L Normal 33-120 [facility] Comment on above: Performed By: #### 2 4323-8 ####BHANU Treviño ([id number])[facility] ([facility])[address]2948 [place] [address] ALT With P-5'-P [Catalytic activity/Vol] 34 U/L Normal 10-52 [facility] Comment on above: Result Comment: Sydni ents treated with Sulfasalazine may generate falsely decreased results for ALT. Performed By: #### 2 4323-8 ####BHANU Treviño ([id number])[facility] ([facility])65790 [place] [address] Anion gap [Moles/Vol] 14 mmol/L Normal 10-20 [facility] Comment on above: Performed By: #### 2 4323-8 ####BHANU Treviño ([id number])[facility] ([facility])[address]3832 [place] [address] AST With P-5'-P [Catalytic activity/Vol] 57 U/L High 9-39 [facility] Comment on above: Performed By: #### 2 4323-8 ####BHANU Treviño ([id number])[facility] ([facility])63139 [place] [address] Bilirubin [Mass/Vol] 0.4 mg/dL Normal 0.0-1.2 [facility] Comment on above: Performed By: #### 2 4323-8 ####BHANU Treviño ([id number])[facility] ([facility])19803 [place] [address] Calcium [Mass/Vol] 8.1 mg/dL Low 8.6-10.6 [facility] Comment on above: Performed By: #### 2 4323-8 ####BHANU LAUREANOTZER L (52327)[facility] ([facility])[address]21 [place] [address] Chloride [Moles/Vol] 103 mmol/L Normal 98-107 [facility] Comment on above: Performed By: #### 2 4323-8 ####BHANU FLEMINGMOTZER L ([id number])[facility] ([facility])27774 [place] [address] CO2 [Moles/Vol] 27 mmol/L Normal 21-32 [facility] Comment on above: Performed By: #### 2 4323-8 ####BHANU FLEMINGMOTZER L (60138)[facility] ([facility])89647 [place] [address] Creatinine [Mass/Vol] 1.11 mg/dL Normal 0.50-1.30 [facility] Comment on above: Performed By: #### 2 4323-8 ####BHANU LAUREANOTZER L ([id number])[facility] ([facility])08357 [place] [address] Glomerular filtration rate/1.73 sq M.predicted 80 mL/min/1.73m*2 Normal >60 [facility] Comment on above: Result Comment: Calc ulations of estimated GFR are performed using the 2020 CKD-EPI Study Refit equation without the race variable for the IDMS-Traceable creatinine methods.https://jasn.asnjournals.org/content/early//A SN.5847160732 Performed By: #### 2 4323-8 ####BHANU FLEMINGMOTZER L ([id number])[facility] ([facility])[address]49 [place] [address] Glucose [Mass/Vol] 95 mg/dL Normal 74-99 [facility] Comment on above: Performed By: #### 2 4323-8 ####BHANU SCHMOTZER L (90569)[facility] ([facility])43253 [place] [address] Potassium [Moles/Vol] 4.5 mmol/L Normal 3.5-5.3 [facility] Comment on above: Performed By: #### 2 4323-8 ####BHANU Treviño (11143)[facility] ([facility])[address]6498 [place] [address] Protein [Mass/Vol] 5.4 g/dL Low 6.4-8.2 [facility] Comment on above: Performed By: #### 2 4323-8 ####BHANU Treviño ([id number])[facility] ([facility])[id number] [place] [address]116 Sodium [Moles/Vol] 139 mmol/L Normal 136-145 [facility] Comment on above: Performed By: #### 2 4323-8 ####BHANU Treviño (24734)[facility] ([facility])[address] [place] [address] 26339 Urea nitrogen [Mass/Vol] 7 mg/dL Normal 6-23 [facility] Comment on above: Performed By: #### 2 4323-8 ####BHANU Treviño (50792)[facility] ([facility])[address] [place] [address] 03510 Creatine kinaseon 01-22-2025 CK [Catalytic activity/Vol] 21 U/L Normal 0-325 [facility] Comment on above: Performed By: #### 2 157-6 ####BHANU Treviño ([id number])[facility] ([facility])[id number] [place] [address] 48939 Magnesiumon 01-22-2025 Magnesium [Mass/Vol] 1.96 mg/dL Normal 1.60-2.40 [facility] Comment on above: Performed By: #### 1 9123-9 ####BHANU Treviño (90773)[facility] ([facility])[id number] [place] [address] 29625 Blood type and Indirect anti body screen panel (Bld)on 01-21-2025 ABO group Nom (Bld) A Normal Unive [facility] Comment on above: Performed By: #### 3 4532-2 ####BHANU Treviño ([id number])[facility] ([facility])[address]29 [facility] [place] [address] Blood group antibody screen Ql Negative [facility] Comment on above: Performed By: #### 3 4532-2 ####BHANU Treviño ([id number])[facility] ([facility])[address]29 [facility] [place] [address] D Ag Ql (Bld) Positive [facility] Comment on above: Performed By: #### 3 4532-2 ####BHANU Treviño ([id number])[facility] ([facility])67243 [facility] [address] CBC W Auto Differential pane l (Bld)on 01-21-2025 Basophils (Bld) [#/Vol] 0.06 x10*3/uL Normal 0.00-0.10 [facility] Comment on above: Performed By: #### 5 7021-8 ####BHANU Treviño ([id number])[facility] ([facility])21533 [place] [address] Basophils/100 WBC (Bld) 0.7 % Normal 0.0-2.0 [facility] Comment on above: Performed By: #### 5 7021-8 ####BHANU Treviño ([id number])[facility] ([facility])78546 [place] [address] Eosinophils (Bld) [#/Vol] 0.24 x10*3/uL Normal 0.00-0.70 [facility] Comment on above: Performed By: #### 5 7021-8 ####BHANU Treviño ([id number])[facility] ([facility])99253 [place] [address] Eosinophils/100 WBC (Bld) 2.7 % Normal 0.0-6.0 [facility] Comment on above: Performed By: #### 5 7021-8 ####BHANU Treviño (59889)[facility] ([facility])80971 [place] [address] Erythrocyte distribution width (RBC) [Ratio] 19.6 % High 11.5-14.5 [facility] Comment on above: Performed By: #### 5 7021-8 ####BHANU Treviño ([id number])[facility] ([facility])[id number] [place] [address] 96615 Hematocrit (Bld) [Volume fraction] 25.9 % Low 41.0-52.0 [facility] Comment on above: Performed By: #### 5 7021-8 ####BHANU Treviño ([id number])[facility] ([facility])[address] [place] [address] 40326 Hemoglobin (Bld) [Mass/Vol] 8.3 g/dL Low 13.5-17.5 [facility] Comment on above: Performed By: #### 5 7021-8 ####BHANU Treviño ([id number])[facility] ([facility])[id number] [place] [address] 10324 Immature granulocytes (Bld) [#/Vol] 0.03 x10*3/uL Normal 0.00-0.70 [facility] Comment on above: Performed By: #### 5 7021-8 ####BHANU Treviño ([id number])[facility] ([facility])[id number] [place] [address] 38446 Immature granulocytes/100 WBC (Bld) 0.3 % Normal 0.0-0.9 [facility] Comment on above: Result Comment: Christine ture Granulocyte Count (IG) includes promyelocytes, myelocytes and metamyelocytes but does not include bands. Percent differential counts (%) should be interpreted in the context of the absolute cell counts (cells/UL). Performed By: #### 5 7021-8 ####BHANU Treviño ([id number])[facility] ([facility])[id number] [place] [address] 69197 Lymphocytes (Bld) [#/Vol] 1.18 x10*3/uL Low 1.20-4.80 [facility] Comment on above: Performed By: #### 5 7021-8 ####BHANU Treviño ([id number])[facility] ([facility])56286 [place] [address] Lymphocytes/100 WBC (Bld) 13.5 % Normal 13.0-44.0 [facility] Comment on above: Performed By: #### 5 7021-8 ####HBANU Treviño ([id number])[facility] ([facility])[address] [place] [address] 07746 MCH (RBC) [Entitic mass] 24.7 pg Low 26.0-34.0 [facility] Comment on above: Performed By: #### 5 7021-8 ####BHANU Treviño ([id number])[facility] ([facility])[id number] [place] [address] 87593 MCHC (RBC) [Mass/Vol] 32.0 g/dL Normal 32.0-36.0 [facility] Comment on above: Performed By: #### 5 7021-8 ####BHANU Treviño ([id number])[facility] ([facility])[id number] [place] [address] 06604 MCV (RBC) [Entitic vol] 77 fL Low 80-100 [facility] Comment on above: Performed By: #### 5 7021-8 ####BHANU Treviño ([id number])[facility] ([facility])[address] [place] [address] 96387 Monocytes (Bld) [#/Vol] 1.01 x10*3/uL High 0.10-1.00 [facility] Comment on above: Performed By: #### 5 7021-8 ####BHANU Treviño ([id number])[facility] ([facility])[id number] [place] [address] 48712 Monocytes/100 WBC (Bld) 11.5 % Normal 2.0-10.0 [facility] Comment on above: Performed By: #### 5 7021-8 ####BHANU Treviño ([id number])[facility] ([facility])76933 [place] [address] Neutrophils (Bld) [#/Vol] 6.25 x10*3/uL Normal 1.20-7.70 [facility] Comment on above: Result Comment: Perc ent differential counts (%) should be interpreted in the context of the absolute cell counts (cells/uL). Performed By: #### 5 7021-8 ####BHANU Treviño ([id number])[facility] ([facility])[address]89 [place] [address] Neutrophils/100 WBC (Bld) 71.3 % Normal 40.0-80.0 [facility] Comment on above: Performed By: #### 5 7021-8 ####BHANU Treviño (88329)[facility] ([facility])89244 [place] [address] Nucleated RBC/100 WBC (Bld) [Ratio] 0.0 /100 WBCs Normal 0.0-0.0 [facility] Comment on above: Performed By: #### 5 7021-8 ####BHANU Treviño ([id number])[facility] ([facility])23523 [place] [address] Platelets (Bld) [#/Vol] 730 x10*3/uL High 150-450 [facility] Comment on above: Performed By: #### 5 7021-8 ####BHANU Treviño (50949)[facility] ([facility])61709 [place] [address] RBC (Bld) [#/Vol] 3.36 x10*6/uL Low 4.50-5.90 [facility] Comment on above: Performed By: #### 5 7021-8 ####BHANU Treviño ([id number])[facility] ([facility])[address]10 [place] [address] WBC (Bld) [#/Vol] 8.8 x10*3/uL Normal 4.4-11.3 [facility] Comment on above: Performed By: #### 5 7021-8 ####BHANU Treviño ([id number])[facility] ([facility])20511 [place] [address] Basophils (Bld) [#/Vol] 0.07 x10*3/uL Normal 0.00-0.10 [facility] Comment on above: Performed By: #### 5 7021-8 ####BHANU Treviño ([id number])[facility] ([facility])[address]11 [place] [address] Basophils/100 WBC (Bld) 0.8 % Normal 0.0-2.0 [facility] Comment on above: Performed By: #### 5 7021-8 ####BHANU Treviño ([id number])[facility] ([facility])[id number] [place] [address] Eosinophils (Bld) [#/Vol] 0.16 x10*3/uL Normal 0.00-0.70 [facility] Comment on above: Performed By: #### 5 7021-8 ####BHANU Treviño ([id number])[facility] ([facility])[id number] [place] [address] Eosinophils/100 WBC (Bld) 1.7 % Normal 0.0-6.0 [facility] Comment on above: Performed By: #### 5 7021-8 ####BHANU Treviño ([id number])[facility] ([facility])[id number] [place] [address] Erythrocyte distribution width (RBC) [Ratio] 19.5 % High 11.5-14.5 [facility] Comment on above: Performed By: #### 5 7021-8 ####BHANU Treviño ([id number])[facility] ([facility])[id number] [place] [address] Hematocrit (Bld) [Volume fraction] 25.5 % Low 41.0-52.0 [facility] Comment on above: Performed By: #### 5 7021-8 ####BHANU LAUREANOTZER L ([id number])[facility] ([facility])[id number] [place] [address] Hemoglobin (Bld) [Mass/Vol] 8.3 g/dL Low 13.5-17.5 [facility] Comment on above: Performed By: #### 5 7021-8 ####BHNAU FLEMINGMOTZER L ([id number])[facility] ([facility])[id number] [place] [address] Immature granulocytes (Bld) [#/Vol] 0.05 x10*3/uL Normal 0.00-0.70 [facility] Comment on above: Performed By: #### 5 7021-8 ####BHANU FLEMINGMOTZER L ([id number])[facility] [facility])[address] [place] [address] Immature granulocytes/100 WBC (Bld) 0.5 % Normal 0.0-0.9 [facility] Comment on above: Result Comment: Christine ture Granulocyte Count (IG) includes promyelocytes, myelocytes and metamyelocytes but does not include bands. Percent differential counts (%) should be interpreted in the context of the absolute cell counts (cells/UL). Performed By: #### 5 7021-8 ####BHANU FLEMINGMOTZER L ([id number])[facility] ([facility])[address] [place] [address] Lymphocytes (Bld) [#/Vol] 0.99 x10*3/uL Low 1.20-4.80 [facility] Comment on above: Performed By: #### 5 7021-8 ####BHANU FLEMINGMOTZER L ([id number])[facility] ([facility])[address] [place] [address] Lymphocytes/100 WBC (Bld) 10.8 % Normal 13.0-44.0 [facility] Comment on above: Performed By: #### 5 7021-8 ####BHANU FLEMINGMOTZER L ([id number])[facility] ([facility])[address]63 [place] [address] MCH (RBC) [Entitic mass] 25.0 pg Low 26.0-34.0 [facility] Comment on above: Performed By: #### 5 7021-8 ####BHANU Treviño ([id number])[facility] ([facility])[address]28 [place] [address] MCHC (RBC) [Mass/Vol] 32.5 g/dL Normal 32.0-36.0 [facility] Comment on above: Performed By: #### 5 7021-8 ####BHANU Treviño ([id number])[facility] ([facility])[address]88 [place] [address] MCV (RBC) [Entitic vol] 77 fL Low 80-100 [facility] Comment on above: Performed By: #### 5 7021-8 ####BHANU Treviño ([id number])[facility] ([facility])[id number] [place] [address] Monocytes (Bld) [#/Vol] 1.02 x10*3/uL High 0.10-1.00 [facility] Comment on above: Performed By: #### 5 7021-8 ####BHANU Treviño ([id number])[facility] ([facility])[id number] [place] [address] Monocytes/100 WBC (Bld) 11.1 % Normal 2.0-10.0 [facility] Comment on above: Performed By: #### 5 7021-8 ####BHANU Treviño ([id number])[facility] ([facility])[id number] [place] [address] Neutrophils (Bld) [#/Vol] 6.90 x10*3/uL Normal 1.20-7.70 [facility] Comment on above: Result Comment: Perc ent differential counts (%) should be interpreted in the context of the absolute cell counts (cells/uL). Performed By: #### 5 7021-8 ####BHANU Treviño ([id number])[facility] ([facility])[address] [place] [address] Neutrophils/100 WBC (Bld) 75.1 % Normal 40.0-80.0 [facility] Comment on above: Performed By: #### 5 7021-8 ####BHANU Treviño ([id number])[facility] ([facility])[address]325 [place] [address] Nucleated RBC/100 WBC (Bld) [Ratio] 0.0 /100 WBCs Normal 0.0-0.0 [facility] Comment on above: Performed By: #### 5 7021-8 ####BHANU Treviño ([id number])[facility] ([facility])[id number] [place] [address] Platelets (Bld) [#/Vol] 690 x10*3/uL High 150-450 [facility] Comment on above: Performed By: #### 5 7021-8 ####BHANU Treviño ([id number])[facility] ([facility])[id number] [place] [address] RBC (Bld) [#/Vol] 3.32 x10*6/uL Low 4.50-5.90 [facility] Comment on above: Performed By: #### 5 7021-8 ####BHANU Treviño ([id number])[facility] ([facility])[id number] [place] [address] WBC (Bld) [#/Vol] 9.2 x10*3/uL Normal 4.4-11.3 [facility] Comment on above: Performed By: #### 5 7021-8 ####BHANU Treviño ([id number])[facility] ([facility])[address] [place] [address] Comprehensive metabolic 2000 panelon 01-21-2025 Albumin BCP dye [Mass/Vol] 2.2 g/dL Low 3.4-5.0 [facility] Comment on above: Performed By: #### 2 4323-8 ####BHANU Treviño ([id number])[facility] ([facility])[address] [place] [address] ALP [Catalytic activity/Vol] 62 U/L Normal 33-120 [facility] Comment on above: Performed By: #### 2 4323-8 ####BHANU Treviño ([id number])[facility] ([facility])[address] [place] [address] ALT With P-5'-P [Catalytic activity/Vol] 24 U/L Normal 10-52 [facility] Comment on above: Result Comment: Sydni ents treated with Sulfasalazine may generate falsely decreased results for ALT. Performed By: #### 2 4323-8 ####BHANU Treviño ([id number])[facility] ([facility])[address] [place] [address] Anion gap [Moles/Vol] 12 mmol/L Normal 10-20 [facility] Comment on above: Performed By: #### 2 4323-8 ####BHANU Treviño ([id number])[facility] ([facility])[address] [place] [address] AST With P-5'-P [Catalytic activity/Vol] 40 U/L High 9-39 [facility] Comment on above: Performed By: #### 2 4323-8 ####BHANU Treviño ([id number])[facility] ([facility])[address]53 [place] [address] Bilirubin [Mass/Vol] 0.4 mg/dL Normal 0.0-1.2 [facility] Comment on above: Performed By: #### 2 4323-8 ####BHANU Treviño ([id number])[facility] ([facility])[address] [place] [address] Calcium [Mass/Vol] 8.0 mg/dL Low 8.6-10.6 [facility] Comment on above: Performed By: #### 2 4323-8 ####BHANU Treviño ([id number])[facility] ([facility])[address]164 [place] [address] Chloride [Moles/Vol] 104 mmol/L Normal 98-107 [facility] Comment on above: Performed By: #### 2 4323-8 ####BHANU Treviño ([id number])[facility] ([facility])[address]70 [place] [address] CO2 [Moles/Vol] 26 mmol/L Normal 21-32 [facility] Comment on above: Performed By: #### 2 4323-8 ####BHANU Treviño ([id number])[facility] ([facility])[address] [place] [address] Creatinine [Mass/Vol] 1.09 mg/dL Normal 0.50-1.30 [facility] Comment on above: Performed By: #### 2 4323-8 ####BHANU Treviño ([id number])[facility] ([facility])[address] [place] [address] Glomerular filtration rate/1.73 sq M.predicted 82 mL/min/1.73m*2 Normal >60 [facility] Comment on above: Result Comment: Calc ulations of estimated GFR are performed using the 2020 CKD-EPI Study Refit equation without the race variable for the IDMS-Traceable creatinine methods.https://jasn.asnjournals.org/content/early/A SN.0968855590 Performed By: #### 2 4323-8 ####BHANU Treviño ([id number])[facility] ([facility])[address]481 [place] [address] Glucose [Mass/Vol] 103 mg/dL High 74-99 [facility] Comment on above: Performed By: #### 2 4323-8 ####BHANU Treviño ([id number])[facility] ([facility])[address]24 [place] [address] Potassium [Moles/Vol] 4.0 mmol/L Normal 3.5-5.3 [facility] Comment on above: Performed By: #### 2 4323-8 ####BHANU Treviño ([id number])[facility] ([facility])[address]24 [place] [address] Protein [Mass/Vol] 6.1 g/dL Low 6.4-8.2 [facility] Comment on above: Performed By: #### 2 4323-8 ####BHANU Treviño ([id number])[facility] ([facility])[id number] [place] [address] Sodium [Moles/Vol] 138 mmol/L Normal 136-145 [facility] Comment on above: Performed By: #### 2 4323-8 ####BHANU Treviño ([id number])[facility] ([facility])[id number] [place] [address] Urea nitrogen [Mass/Vol] 7 mg/dL Normal 6-23 [facility] Comment on above: Performed By: #### 2 4323-8 ####BHANU Treviño ([id number])[facility] ([facility])[id number] [place] [address] Magnesiumon 01-21-2025 Magnesium [Mass/Vol] 1.92 mg/dL Normal 1.60-2.40 [facility] Comment on above: Performed By: #### 1 9123-9 ####BHANU Treviño ([id number])[facility] ([facility])[address] [place] [address] CBC W Auto Differential pane l (Bld)on 01-20-2025 Basophils (Bld) [#/Vol] 0.06 x10*3/uL Normal 0.00-0.10 [facility] Comment on above: Performed By: #### 5 7021-8 ####BHANU Treviño ([id number])[facility] ([facility])[id number] [place] [address] Basophils/100 WBC (Bld) 0.6 % Normal 0.0-2.0 [facility] Comment on above: Performed By: #### 5 7021-8 ####BHANU Treviño ([id number])[facility] ([facility])[address] [place] [address] No Panel Informationon 01-13 Actual Fractions Delivered 5 [facility] Actual Session Delivered Dose 400 cGray [facility] Actual Total Dose 2000 [facility]Gray [facility] Course Number 1 [facility] Elapsed Days 6 [facility] Last Date 01/13/2025 [facility] Prescribed Fractional Dose 400 cGray [facility] Prescribed Number of Fractions 5 [facility] Prescribed Technique 3D [facility] Prescribed Total Dose 2000 cGray [facility] Prescription Pattern Comment 1 cm bolus [facility] Start Date 01/07/2025 [facility] Treatment Site L [facility] On[facility] Msq Treatment [place] yon 01-10-2025 Actual Fractions Delivered 4 [facility] Actual Session Delivered Dose 400 cGray [facility] Actual Total Dose 1600 cGray [facility] Course Number 1 [facility] Elapsed Days 3 [facility] Last Date 01/10/2025 [facility] Prescribed Fractional Dose 400 cGray [facility] Prescribed Number of Fractions 5 [facility] Prescribed Technique 3D [facility] Prescribed Total Dose 2000 cGray [facility] Prescription Pattern Comment 1 cm bolus [facility] Start Date 01/07/2025 [facility] Treatment Site L [facility] Rad Onc Msq Treatment [place] yon 01-09-2025 Actual Fractions Delivered 3 [facility] Actual Session Delivered Dose 400 cGray [facility] Actual Total Dose 1200 cGray [facility] Course Number 1 [facility] Elapsed Days 2 [facility] Last Date 01/09/2025 [facility] Prescribed Fractional Dose 400 cGray [facility] Prescribed Number of Fractions 5 [facility] Prescribed Technique 3D [facility] Prescribed Total Dose 2000 cGray [facility] Prescription Pattern Comment 1 cm bolus [facility] Start Date 01/07/2025 [facility] Treatment Site L [facility] Rad Onc Msq Treatment [place] yon 01-08-2025 Actual Fractions Delivered 2 [facility] Actual Session Delivered Dose 400 cGray [facility] Actual Total Dose 800 cGray [facility] Course Number 1 [facility] Elapsed Days 1 [facility] Last Date 01/08/2025 [facility] Prescribed Fractional Dose 400 cGray [facility] Prescribed Number of Fractions 5 [facility] Prescribed Technique 3D [facility] Prescribed Total Dose 2000 cGray [facility] Prescription Pattern Comment 1 cm bolus [facility] Start Date 01/07/2025 [facility] Treatment Site L [facility] No Panel Informationon 01-02 These images are not reportable by radiology and will not be interpreted by Radiologists. IMAGING 30on 12-24-2024 30 Problem: Knowledge Deficit Goal: Patient/family/caregiver demonstrates understanding [...] maintained or improved Outcome: Adequate for Discharge [facility] 30 Problem: Knowledge Deficit Goal: Patient/family/caregiver demonstrates understanding [...] 12/24/2024103 by Diana Wise RN Outcome: Progressing 12/23/2024 2014 by Diana Wise RN Outcome: Progressing Normal [facility] BASIC METABOLIC PANELon 04-0 Anion gap [Moles/Vol] 7 mmol/L Normal 3-13 [facility] Comment on above: Performed By: #### L AB15 ####Automation Technician: JAZLYN JIMENEZ ([id number])[facility] ([facility])[address] [place] [address] Calcium [Mass/Vol] 10.3 mg/dL High 8.4-10.2 [facility] Comment on above: Performed By: #### L AB15 ####Automation Technician: JAZLYN JIMENEZ ([id number])[facility])[address] [place] [address] Chloride [Moles/Vol] 108 mmol/L High 98-107 [facility] Comment on above: Performed By: #### L AB15 ####Automation Technician: JAZLYN JIMENEZ ([id number])[facility] ([facility])[address] [place] [address] CO2 [Moles/Vol] 24 mmol/L Normal 22-29 [facility] Comment on above: Performed By: #### L AB15 ####Automation Technician: JAZLYN JIMENEZ ([id number])[facility])[address] [place] [address] Creatinine [Mass/Vol] 1.04 mg/dL Normal 0.72-1.25 [facility] Comment on above: Performed By: #### L AB15 ####Automation Technician: JAZLYN JIMENEZ ([id number])[facility])[address] [place] [address] [place] GLOMERULAR FILTRATION RATE ML/MIN/1.73 SQ M.PREDICTED 86.9 mL/min/1.73m*2 Normal >60.0 [facility] Comment on above: Result Comment: Calc ulation based on the Chronic Kidney Disease Epidemiology Collaboration (CKD-EPI) equation refit without adjustment for race Performed By: #### L AB15 ####Automation Technician: JAZLYN JIMENEZ ([id number])[facility] [place] [address] Glucose [Mass/Vol] 97 mg/dL Normal 74-100 [facility] Comment on above: Performed By: #### L AB15 ####Automation Technician: JAZLYN JIMENEZ ([id number])[facility] ([facility])[address] [place] [address] Potassium [Moles/Vol] 3.7 mmol/L Normal 3.5-5.1 [facility] Comment on above: Result Comment: [facility] potassium values may be up to 0.5 mmol/L lower than serum values. Performed By: #### L AB15 ####Automation Technician: JAZLYN JIMENEZ ([id number])[facility] ([facility])[address] [place] [address] Sodium [Moles/Vol] 139 mmol/L Normal 136-145 [facility] Comment on above: Performed By: #### L AB15 ####Automation Technician: JAZLYN JIMENEZ ([id number])[facility] ([facility])[address] [place] [address] Urea nitrogen [Mass/Vol] 7 mg/dL Low 9-23 [facility] Comment on above: Performed By: #### L AB15 ####Automation Technician: JAZLYN JIMENEZ ([id number])[facility] ([facility])[address] [place] [address] Basic metabolic 1998 panelOr dered By: Eboni Camacho on 12-24-2024 Anion gap [Moles/Vol] 7 mmol/L 3 - 13 mmol/L [facility] Calcium [Mass/Vol] 10.3 mg/dL High 8.4 - 10. 2 mg/dL [facility] Chloride [Moles/Vol] 108 mmol/L High 98 - 10 7 mmol/L [facility] CO2 [Moles/Vol] 24 mmol/L 22 - 29 mmol/L [facility] Creatinine [Mass/Vol] 1.04 mg/dL 0.72 - 1.25 mg/dL [facility] GFR/1.73 sq M.predicted (S/P/Bld) [Vol rate/Area] 86.9 mL/min - PINF [facility] [email or web address] Comment on above: Calculation based on the Chronic Kidney Disease Epidemiology Collaboration (CKD-EPI) equation refit without adjustment for race Glucose [Mass/Vol] 97 mg/dL 74 - 100 mg/dL [facility] Interpretation and review of laboratory results Abnormal [facility] Potassium [Moles/Vol] 3.7 mmol/L 3.5 - 5.1 mmol/L [facility] Comment on above: Plasma potassium jeri ues may be up to 0.5 mmol/L lower than serum values. Sodium [Moles/Vol] 139 mmol/L 136 - 145 mmol/L [facility] [email or web address] Urea nitrogen [Mass/Vol] 7 mg/dL Low 9 - 23 mg/dL [facility] CBC W Auto Differential pane l (Bld)on 12-24-2024 Basophils (Bld) [#/Vol] 0.1 10*3/uL 0.0 - 0.2 10*3/uL [facility] [email or web address] Basophils/100 WBC (Bld) 0.5 % 0.0 - 2.0 % [facility] [email or web address] Eosinophils (Bld) [#/Vol] 0.8 10*3/uL High 0.0 - 0.5 10*3/uL [facility] [email or web address] Eosinophils/100 WBC (Bld) 5.7 % 0.0 - 6.0 % [facility] [employer] Erythrocyte distribution width (RBC) [Ratio] 17.5 % High 11.5 - 15.0 % [facility] [email or web address] Hematocrit (Bld) [Volume fraction] 23 % Low 40.0 - 52.0 % [facility] [employer] Hemoglobin (Bld) [Mass/Vol] 7.1 g/dL Low 13.0 - 18.0 g/dL [facility] [email or web address] Immature granulocytes (Bld) [#/Vol] 0.1 10*3/uL High NINF - 0.1 10*3/uL [facility] [email or web address] Immature granulocytes/100 WBC (Bld) 0.4 % 0.0 - 2.0 % [facility] Interpretation and review of laboratory results Abnormal [facility] [employer] Lymphocytes (Bld) [#/Vol] 1.5 10*3/uL 1.0 - 4.3 10*3/uL [facility] [employer] Lymphocytes/100 WBC (Bld) 9.9 % Low 15.0 - 45.0 % [facility] MCH (RBC) [Entitic mass] 24.6 pg Low 26.0 - 34.0 pg [facility] MCHC (RBC) [Mass/Vol] 30.9 % 30.5 - 36.0 % [facility] [email or web address] MCV (RBC) [Entitic vol] 79.6 fL 77.0 - 99.0 fL [facility] [employer] Monocytes (Bld) [#/Vol] 1.4 10*3/uL High 0.0 - 0.9 10*3/uL [facility] Monocytes/100 WBC (Bld) 9.4 % 5.0 - 13.0 % [facility] Neutrophils (Bld) [#/Vol] 11 10*3/uL High 1.8 - 7.5 10*3/uL [facility] Neutrophils/100 WBC (Bld) 74.1 % 38.0 - 82.0 % [facility] [employer] Nucleated RBC/100 WBC (Bld) [Ratio] 0 % [facility] [employer] Platelet mean volume (Bld) [Entitic vol] 8.8 fL Low 9.0 - 12.7 fL [facility] Platelets (Bld) [#/Vol] 577 10*3/uL High 140 - 440 10*3/uL [facility] RBC (Bld) [#/Vol] 2.89 10*6/uL Low 4.40 - 5.9 0 10*6/uL [facility] WBC (Bld) [#/Vol] 14.8 10*3/uL High 3.6 - 10.7 10*3/uL [facility] CBC WITH AUTO DIFFERENTIALon 12-24-2024 Basophils (Bld) [#/Vol] 0.1 10*3/uL Normal 0.0-0.2 [facility] Comment on above: Performed By: #### L [id number] ####Automation Technician: JAZLYN JIMENEZ ([id number])[address] Basophils/100 WBC (Bld) 0.5 % Normal 0.0-2.0 [facility] Comment on above: Performed By: #### L [id number] ####Automation Technician: JAZLYN JIMENEZ ([id number])[facility] ([facility])[address] [place] [address] Eosinophils (Bld) [#/Vol] 0.8 10*3/uL High 0.0-0.5 [facility] Comment on above: Performed By: #### L [id number] ####Automation Technician: JAZLYN JIMENEZ ([id number])[facility])[address] [place] [address] Eosinophils/100 WBC (Bld) 5.7 % Normal 0.0-6.0 [facility] Comment on above: Performed By: #### L [id number] ####Automation Technician: JAZLYN JIMENEZ ([id number])[address] Erythrocyte distribution width (RBC) [Ratio] 17.5 % High 11.5-15.0 [facility] Comment on above: Performed By: #### L [id number] ####Automation Technician: JAZLYN JIMENEZ ([id number])[address] Hematocrit (Bld) [Volume fraction] 23.0 % Low 40.0-52.0 [facility] Comment on above: Performed By: #### L [id number] ####Automation Technician: JAZLYN JIMENEZ ([id number])[address] Hemoglobin (Bld) [Mass/Vol] 7.1 g/dL Low 13.0-18.0 [facility] Comment on above: Performed By: #### L [id number] ####Automation Technician: JAZLYN JIMENEZ ([id number])[address] IMMATURE GRANS % 0.4 % Normal 0.0-2.0 [facility] Comment on above: Performed By: #### L [id number] ####Automation Technician: JAZLYN JIMENEZ ([id number])[address] IMMATURE GRANS ABSOLUTE 0.1 10*3/uL High <0.1 [facility] Comment on above: Performed By: #### L [id number] ####Automation Technician: JAZLYN JIMENEZ ([id number])[facility])[address] [place] [address] Lymphocytes (Bld) [#/Vol] 1.5 10*3/uL Normal 1.0-4.3 [facility] Comment on above: Performed By: #### L [id number] ####Automation Technician: JAZLYN JIMENEZ ([id number])[facility])[address] [place] [address] Lymphocytes/100 WBC (Bld) 9.9 % Low 15.0-45.0 [facility] Comment on above: Performed By: #### L [id number] ####Automation Technician: JAZLYN JIMENEZ ([id number])[facility])[address] [place] [address] MCH (RBC) [Entitic mass] 24.6 pg Low 26.0-34.0 [facility] Comment on above: Performed By: #### L [id number] ####Automation Technician: JAZLYN JIMENEZ ([id number])[facility])[address] [place] [address] MCHC 30.9 % Normal 30.5-36.0 [facility] Comment on above: Performed By: #### L [id number] ####Automation Technician: JAZLYN JIMENEZ ([id number])[address] MCV (RBC) [Entitic vol] 79.6 fL Normal 77.0-99.0 [facility] Comment on above: Performed By: #### L [id number] ####Automation Technician: JAZLYN JIMENEZ ([id number])[address] Monocytes (Bld) [#/Vol] 1.4 10*3/uL High 0.0-0.9 [facility] Comment on above: Performed By: #### L [id number] ####Automation Technician: JAZLYN JIMENEZ ([id number])[facility] ([facility])[address] [place] [address] Monocytes/100 WBC (Bld) 9.4 % Normal 5.0-13.0 [facility] Comment on above: Performed By: #### L [id number] ####Automation Technician: JAZLYN JIMENEZ ([id number])[facility] ([facility])[address] [place] [address] NEUTROPHILS ABSOLUTE 11.0 10*3/uL High 1.8-7.5 [facility] Comment on above: Performed By: #### L [id number] ####Automation Technician: JAZLYN JIMENEZ ([id number])[facility])[address] [place] [address] Neutrophils/100 WBC (Bld) 74.1 % Normal 38.0-82.0 [facility] Comment on above: Performed By: #### L [id number] ####Automation Technician: JAZLYN JIMENEZ ([id number])[facility] ([facility])[address] [place] [address] NRBC 0.0 /100 WBCs Normal 0.0-2.0 [facility] Comment on above: Performed By: #### L [id number] ####Automation Technician: JAZLYN JIMENEZ ([id number])[facility] ([facility])[address] [place] [address] Platelet mean volume (Bld) [Entitic vol] 8.8 fL Low 9.0-12.7 [facility] Comment on above: Performed By: #### L [id number] ####Automation Technician: JAZLYN JIMENEZ ([id number])[facility] ([facility])[address] [place] [address] [place] Platelets (Bld) [#/Vol] 577 10*3/uL High 140-440 [facility] Comment on above: Performed By: #### L [id number] ####Automation Technician: JAZLYN JIMENEZ ([id number])[facility] ([facility])[address] [place] [address] [place] RBC (Bld) [#/Vol] 2.89 10*6/uL Low 4.40-5.90 [facility] Comment on above: Performed By: #### L [id number] ####Automation Technician: JAZLYN MILANIGLESIA ([id number])[facility] ([facility])[address] [place] [address] WBC (Bld) [#/Vol] 14.8 10*3/uL High 3.6-10.7 [facility] Comment on above: Performed By: #### L [id number] ####Automation Technician: JAZLYN AYTESIGLESIA ([id number])[facility] ([facility])[address] [place] [address] Consulton 12-24-2024 Consult [facility] Wound Care CONSULT Note Kevan La [...] BC taken Received zosyn, vancomycin and fluids. [facility] accepted him but waiting on bed until later this afternoon. Pt states he was dropped off here from [facility] as it was the closest [...] Allergen Reactions Banana Itching MEDICATIONS No current facility-administered medications on file prior to encounter. Current [...] respiratory distress, no cyanosis Left hip/post thigh: [id number]. Wound beds with pink tissue and slough. [...] "PROTIME", "INR" Prealbumin: No results found for: "PREALBUMIN" Albumin:No components found for: "LABALBU" Sed Rate:No results found for: "SEDRATE" Micro: No components found for: "BC" Assessment/Plan: Nursing staff to perform dressing change: Left hip/post thigh: Squamous Cell Carcinoma -Cleanse with dakins soaked gauze. Pack wet to dry dakins soaked gauze, cover with ABD pads BID and PRN Nutritional support Wound Care to follow Recommend to follow up at [facility] Outpatient wound care center after [...] own independent evaluation of this patient. [facility] Nursing Noteon 12-24-2024 Nursing Note See new oxy 5 mg one time dose order Normal [facility] Nursing Note Attending candace anthony tted due to patient asking for PRN pain meds with soft BP's. Awaiting answer Normal [facility] Nursing Note Called and this n kym gave report to Lori NEWTON for patient. P/U time still 1230. Patient updated. Normal [facility] Nursing Note Call received [facility] has bed [facility] at [facility] room [facility]4N. Nurse to nurse report number [phone]. Social work to arrange transportation in AM. Patient notified [facility] 30on 12-23-2024 30 Problem: Knowledge Deficit Goal: Patient/family/caregiver demonstrates understanding [...] monitored and maintained or improved Outcome: Progressing Normal [facility] Consulton 12-23-2024 Consult ----- ----- Attestation signed by Noah Stewart DO at 12/23/2024 7:11 PM I have personally performed a [id number] diagnostic evaluation on this patient on date of service 12/23/24. History, labs, imaging studies, and electronic medical record have been reviewed by me. This note documented by the []Critical Care Fellow [x]rooming house operator []BRITTNEY reflects my history, exam, and medical [...] other team members and physicians, excluding procedures. ----- Internal Medicine: MICU Initial Consult Name: Kevan La : 1975(49 y.o.) Date: 12/23/24 Attending: Dr. Stewart Subjective: Chief Complaint: Hypotension HPI: Mr. La is a 49 year old male with PMHx squamous cell carcinoma of L hip and hidradenitis suppurativa who presented to [facility] 12/22 from [facility] for increased drainage and malodor of L hip wound. He is awaiting transfer to [facility]. Of note, patient recently hospitalized at 12/07 - 12/17 and was discharged to [facility] on Augmentin through 01/12. He had [...] Received from [facility] Overall Financial Resource Strain (CARDIA) Difficulty of Paying Living Expenses: Somewhat hard Food Insecurity: No Food Insecurity (12/07/2024) Received from [facility] Hunger Vital Sign Worried About Running Out of Food in the Last Year: Never true Ran Out of Food in the Last Year: Never true Recent Concern: Food Insecurity - Food Insecurity Present (10/11/2024) Received from [facility] Hunger Vital Sign Worried About Running Out of Food in the Last Year: Sometimes true Ran Out of Food in the Last Year: Sometimes true Transportation Needs: No Transportation Needs (12/07/2024) Received from [facility] PRAPARE - Transportation Lack of Transportation (Medical): No Lack of (more content not included)... [facility] ED Nursing Noteon 12-23-2024 ED Nursing Note RN informed patient admitting team of patient b/p . Pt on the monitor. Pt declined feeling dizzy or nauseous. Pt want pants, RN is looking for pants [facility] ED Nursing Note Pt moved into inpati ent bed. Pt on the monitor. [facility] ED Nursing Note Report given to Sunni NEWTON [facility] ED Nursing Note Received report from Parish NEWTON [facility] ED Nursing Note Levo drip turned off . BP 102/64. [facility] Progress Noteon 12-23-2024 Progress Note [...] creatinine, and vancomycin levels interfaced automatically to [employer] and data has been analyzed and interpreted. [...] Clinical Pharmacist Available via Secure Chat [facility] BLOOD CULTUREon 12-22-2024 Bacteria identified Cx Nom (Bld) BLOOD CULTURE Reference No growth at 5 days ORDER COMMENTS: Blood Collection Site: Right Arm [ S = SUSCEPTIBLE R = RESISTANT I = INTERMEDIATE S-DD = Susceptible-dose dependent NS = Non-susceptible NO = No Interpretation ] Normal [facility] Comment on above: Performed By: #### L [id number], [id number] #### Automation Technician: JAZLYN JIMENEZ ([id number]) [facility] ([facility]) [address] [place] [id number] Bacteria identified Cx Nom (Bld) BLOOD CULTURE Reference No growth at 5 days ORDER COMMENTS: Blood Collection Site: Left Arm [ S = SUSCEPTIBLE R = RESISTANT I = INTERMEDIATE S-DD = Susceptible-dose dependent NS = Non-susceptible NO = No Interpretation ] [facility] Comment on above: Performed By: #### L [id number], [id number] #### Automation Technician: JAZLYN JIMENEZ ([id number]) [facility] ([facility]) [address] [place] [address] CBC W Auto Differential pane l (Bld)Ordered By: Flores Rausch on 12-22-2024 Erythrocyte distribution width (RBC) [Ratio] 17.3 % High 11.5 - 15.0 % [facility] Hematocrit (Bld) [Volume fraction] 26.8 % Low 40.0 - 52.0 % [facility] Hemoglobin (Bld) [Mass/Vol] 8.4 g/dL Low 13.0 - 18.0 g/dL [facility] Interpretation and review of laboratory results Abnormal [facility] MCH (RBC) [Entitic mass] 25.2 pg Low 26.0 - 34.0 pg [facility] MCHC (RBC) [Mass/Vol] 31.3 % 30.5 - 36.0 % [facility] MCV (RBC) [Entitic vol] 80.5 fL 77.0 - 99.0 fL [facility] [email or web address] Platelet mean volume (Bld) [Entitic vol] 8.9 fL Low 9.0 - 12.7 fL [facility] Platelets (Bld) [#/Vol] 698 10*3/uL High 140 - 440 10*3/uL [facility] RBC (Bld) [#/Vol] 3.33 10*6/uL Low 4.40 - 5.9 0 10*6/uL [facility] WBC (Bld) [#/Vol] 19.4 10*3/uL High 3.6 - 10.7 10*3/uL [facility] CBC WITH AUTO DIFFERENTIALon 12-22-2024 Erythrocyte distribution width (RBC) [Ratio] 17.3 % High 11.5-15.0 [facility] Comment on above: Performed By: #### L [id number], [id number] #### Automation Technician: JAZLYN JIMENEZ ([id number]) [address] Hematocrit (Bld) [Volume fraction] 26.8 % Low 40.0-52.0 [facility] Comment on above: Performed By: #### L [id number], [id number] #### Automation Technician: JAZLYN JIMENEZ ([id number]) [facility]) [address] [place] [address] Hemoglobin (Bld) [Mass/Vol] 8.4 g/dL Low 13.0-18.0 [facility] Comment on above: Performed By: #### L [id number], [id number] #### Automation Technician: JAZLYN JIMENEZ ([id number]) [address] MCH (RBC) [Entitic mass] 25.2 pg Low 26.0-34.0 [facility] Comment on above: Performed By: #### L [id number], [id number] #### Automation Technician: JAZLYN [id number]) [address] MCHC 31.3 % Normal 30.5-36.0 [facility] Comment on above: Performed By: #### L DZ9612, [id number] #### Automation Technician: JAZLYN [id number]) [facility] ([facility]) [address] [place] [address] MCV (RBC) [Entitic vol] 80.5 fL Normal 77.0-99.0 [facility] Comment on above: Performed By: #### L [id number], [id number] #### Automation Technician: JAZLYN JIMENEZ ([id number]) [facility]) [address] [place] [address] Platelet mean volume (Bld) [Entitic vol] 8.9 fL Low 9.0-12.7 [facility] Comment on above: Performed By: #### L [id number], [id number] #### Automation Technician: JAZLYN JIMENEZ ([id number]) [facility]) [address] [place] [address] Platelets (Bld) [#/Vol] 698 10*3/uL High 140-440 [facility] Comment on above: Performed By: #### L [id number], [id number] #### Automation Technician: JAZLYN JIMENEZ ([id number]) [facility] ([facility]) [address] [place] [address] RBC (Bld) [#/Vol] 3.33 10*6/uL Low 4.40-5.90 [facility] Comment on above: Performed By: #### L [id number], [id number] #### Automation Technician: JAZLYN JIMENEZ ([id number]) [facility]) [address] [place] [address] WBC (Bld) [#/Vol] 19.4 10*3/uL High 3.6-10.7 [facility] Comment on above: Performed By: #### L [id number], [id number] #### Automation Technician: JAZLYN JIMENEZ ([id number]) [facility]) [address] [place] [address] COMPLETE URINALYSISon 2024 BILIRUBIN, TOTAL PRESENCE IN URINE Negative Normal Negative [facility] Comment on above: Performed By: #### L [id number] ####Automation Technician: JAZLYN [id number])[facility] ([facility])[address] [place] [address] Clarity (U) Clear Normal Clear [facility] Comment on above: Performed By: #### L [id number] ####Automation Technician: JAZLYN JIMENEZ ([id number])[facility] [place] [address] Color (U) Light Yellow Normal Lt. Yellow [facility] Comment on above: Performed By: #### L [id number] ####Automation Technician: JAZLYN JIMENEZ ([id number])[facility] ([facility])[address] [place] [address] GLUCOSE (MG/DL) IN URINE Normal Normal Normal (<70) [facility] Comment on above: Performed By: #### L [id number] ####Automation Technician: JAZLYN JIMENEZ ([id number])[facility] ([facility])[address] [place] [address] HEMOGLOBIN PRESENCE IN URINE Negative Normal Negative [facility] Comment on above: Performed By: #### L [id number] ####Automation Technician: JAZLYN JIMENEZ ([id number])[facility] ([facility])[address] [place] [address] Ketones Ql (U) Negative Normal Negative [facility] Comment on above: Performed By: #### L [id number] ####Automation Technician: JAZLYN JIMENEZ ([id number])[facility] ([facility])[address] [place] [address] LEUKOCYTE ESTERASE PRESENCE IN URINE BY TEST STRIP Negative Normal Negative [facility] Comment on above: Performed By: #### L [id number] ####Automation Technician: JAZLYN JIMENEZ ([id number])[facility] ([facility])[address] [place] [address] NITRITE PRESENCE IN URINE Negative Normal Negative [facility] Comment on above: Performed By: #### L [id number] ####Automation Technician: JAZLYN JIMENEZ ([id number])[facility] ([facility])[address] [place] [address] pH (U) 6.0 [pH] Normal 5.0-8.0 [facility] Comment on above: Performed By: #### L [id number] ####Automation Technician: JAZLYN JIMENEZ ([id number])[facility])[address] [place] [address] Protein (U) [Mass/Vol] Negative Normal Negative [facility] Comment on above: Performed By: #### L [id number] ####Automation Technician: JAZLYN JIMENEZ ([id number])[facility] ([facility])[address] [place] [address] Specific gravity (U) [Rel density] 1.009 Normal 1.005-1.030 [facility] Comment on above: Performed By: #### L [id number] ####Automation Technician: JAZLYN JIMENEZ ([id number])[facility])[address] [place] [address] UROBILINOGEN (MG/DL) IN URINE Normal Normal Normal (0-1) [facility] Comment on above: Performed By: #### L [id number] ####Automation Technician: JAZLYN JIMENEZ ([id number])[facility])[address] [place] [address] COMPREHENSIVE METABOLIC PANE Yuriy 12-22-2024 Albumin [Mass/Vol] 2.6 g/dL Low 3.5-5.0 [facility] Comment on above: Performed By: #### L [id number], [id number] #### Automation Technician: JAZLYN JIMENEZ ([id number]) [facility] ([facility]) [address] [place] [address] [place] ALP [Catalytic activity/Vol] 65 U/L Normal 40-150 [facility] Comment on above: Performed By: #### L [id number], [id number] #### Automation Technician: JAZLYN JIMENEZ ([id number]) [facility]) [address] [place] [address] [place] ALT [Catalytic activity/Vol] 6 U/L Normal <40 [facility] Comment on above: Performed By: #### L [id number], [id number] #### Automation Technician: JAZLYN JIMENEZ ([id number]) [facility] [address] [place] [address] Anion gap [Moles/Vol] 10 mmol/L Normal 3-13 [facility] Comment on above: Performed By: #### L [id number], [id number] #### Automation Technician: JAZLYN JIMENEZ ([id number]) [facility] ([facility]) [address] [place] [address] AST [Catalytic activity/Vol] 16 U/L Normal <34 [facility] Comment on above: Performed By: #### L DZ9126, [id number] #### Automation Technician: JAZLYN JIMENEZ ([id number]) [facility]) [address] [place] [address] Bilirubin [Mass/Vol] 0.4 mg/dL Normal <1.2 [facility] Comment on above: Performed By: #### L DB3449, [id number] #### Automation Technician: JAZLYN JIMENEZ ([id number]) [facility] ([facility]) [address] [place] [address] Calcium [Mass/Vol] 11.2 mg/dL High 8.4-10.2 [facility] Comment on above: Performed By: #### L [id number], [id number] #### Automation Technician: JAZLYN JIMENEZ ([id number]) [facility] ([facility]) [address] [place] [address] [place] Chloride [Moles/Vol] 98 mmol/L Normal 98-107 [facility] Comment on above: Performed By: #### L ZQ7311, [id number] #### Automation Technician: JAZLYN JIMENEZ ([id number]) [facility]) [address] [place] [address] CO2 [Moles/Vol] 24 mmol/L Normal 22-29 [facility] Comment on above: Performed By: #### L RU4723, [id number] #### Automation Technician: JAZLYN JIMENEZ ([id number]) [facility] [address] [place] [address] Creatinine [Mass/Vol] 1.16 mg/dL Normal 0.72-1.25 [facility] Comment on above: Performed By: #### L UB1694, [id number] #### Automation Technician: JAZLYN JIMENEZ ([id number]) [facility] [address] [place] [address] GLOMERULAR FILTRATION RATE ML/MIN/1.73 SQ M.PREDICTED 76.3 mL/min/1.73m*2 Normal >60.0 [facility] Comment on above: Result Comment: Calc ulation based on the Chronic Kidney Disease Epidemiology Collaboration (CKD-EPI) equation refit without adjustment for race Performed By: #### L [id number], [id number] #### Automation Technician: JAZLYN JIMENEZ ([id number]) [facility]) [address] [place] [address] Glucose [Mass/Vol] 108 mg/dL High 74-100 [facility] Comment on above: Performed By: #### L BK5120, [id number] #### Automation Technician: JAZLYN JIMENEZ ([id number]) [facility]) [address] [place] [address] Potassium [Moles/Vol] 4.0 mmol/L Normal 3.5-5.1 [facility] Comment on above: Result Comment: [facility] potassium values may be up to 0.5 mmol/L lower than serum values. Performed By: #### L [id number], [id number] #### Automation Technician: JAZLYN JIMENEZ ([id number]) [facility] [address] [place] [address] Protein [Mass/Vol] 7.2 g/dL Normal 6.4-8.3 [facility] Comment on above: Performed By: #### L [id number], [id number] #### Automation Technician: JAZLYN JIMENEZ ([id number]) [facility] [address] [place] [address] Sodium [Moles/Vol] 132 mmol/L Low 136-145 [facility] Comment on above: Performed By: #### L HR4049, [id number] #### Automation Technician: JAZLYN JIMENEZ ([id number]) [facility]) [address] [place] [address] Urea nitrogen [Mass/Vol] 11 mg/dL Normal 9-23 [facility] Comment on above: Performed By: #### L EZ4653, [id number] #### Automation Technician: JAZLYN JIMENEZ ([id number]) [facility]) [address] [place] [address] CULTURE ANAEROBICon 12-23-19 25 CULTURE ANAEROBIC ANAEROBIC CULTURE (A ) Reference BACTEROIDES FRAGILIS GROUP Moderate Bacteroides fragilis group (A) FUSOBACTERIUM GONIDIAFORMANS Fusobacterium gonidiaformans (A) This is an edited result. Previous organism was Anaerobic Gram-negative cocci on 12/24/2024 at 1358 EDT. [ S = SUSCEPTIBLE R = RESISTANT I = INTERMEDIATE S-DD = Susceptible-dose dependent NS = Non-susceptible NO = No Interpretation ] Normal [facility] Comment on above: Performed By: #### L [id number], [id number] #### Automation Technician: JAZLYN JIMENEZ ([id number]) [address] CULTURE, AEROBIC BACTERIA WI TH GRAM [...] Non-susceptible NO = No Interpretation ] Normal [facility] Comment on above: Performed By: #### L [id number], [id number] #### Automation Technician: JAZLYN JIMENEZ ([id number]) [facility]) [address] [place] [address] Comprehensive metabolic 1998 panelon 12-22-2024 Albumin [Mass/Vol] 2.6 g/dL Low 3.5 - 5.0 g/dL [facility] ALP [Catalytic activity/Vol] 65 U/L 40 - 150 U/L [facility] ALT [Catalytic activity/Vol] 6 U/L NINF - 40 U/L [facility] Anion gap [Moles/Vol] 10 mmol/L 3 - 13 mmol/L [facility] AST [Catalytic activity/Vol] 16 U/L NINF - 34 U/L [facility] Bilirubin [Mass/Vol] 0.4 mg/dL NINF - 1.2 mg/dL [facility] Calcium [Mass/Vol] 11.2 mg/dL High 8.4 - 10. 2 mg/dL [facility] Chloride [Moles/Vol] 98 mmol/L 98 - 10 7 mmol/L [facility] CO2 [Moles/Vol] 24 mmol/L 22 - 29 mmol/L [facility] Creatinine [Mass/Vol] 1.16 mg/dL 0.72 - 1.25 mg/dL [facility] GFR/1.73 sq M.predicted (S/P/Bld) [Vol rate/Area] 76.3 mL/min - PINF [facility] Comment on above: Calculation based on the Chronic Kidney Disease Epidemiology Collaboration (CKD-EPI) equation refit without adjustment for race Glucose [Mass/Vol] 108 mg/dL High 74 - 100 mg/dL [facility] Interpretation and review of laboratory results Abnormal [facility] Potassium [Moles/Vol] 4 mmol/L 3.5 - 5.1 mmol/L [facility] Comment on above: Plasma potassium jeri ues may be up to 0.5 mmol/L lower than serum values. Protein [Mass/Vol] 7.2 g/dL 6.4 - 8.3 g/dL [facility] Sodium [Moles/Vol] 132 mmol/L Low 136 - 145 mmol/L [facility] Urea nitrogen [Mass/Vol] 11 mg/dL 9 - 23 mg/dL [facility] ED Nursing Noteon 12-22-2024 ED Nursing Note Levo titrated to 2mcg/min. Patient BP remains stable. Normal [facility] ED Nursing Note Levo titrated to 4mcg/min. BP remains stable. Patient asymptomatic. Normal [facility] ED Nursing Note Levo titrated to 6mcg/min. BP remains stable. Patient asymptomatic. Normal [facility] ED Nursing Note Report given to Parish RN Normal [facility] ED Nursing Note Dressing change comp leted with ABD pads, 2x2s and tape. Pt repostioned and saturated chucks removed Normal [facility] ED Nursing Note Messaged pharmacy regarding missing vancomycin dose Normal [facility] ED Nursing Note Report given to Mary NEWTON for lunch coverage Normal [facility] ED Provider Noteon 5 ED Provider Note HPI Chief Complaint Patient presents with ? Wound Infection Pt arrives by life care from [facility] in ulm, per life care pt has had wound [...] his facility about a week ago from [facility] as he has SCC treating with [...] typical urinary output. History provided by: Patient gut cleaner used: No INFORMED PHOTO CONSENT: The patient has given verbal consent to have photos taken of left hip and inserted into their provider note as a part of their permanent medical record for purposes of documentation, treatment management, and/or medical review. All images taken were transmitted and stored on a secure [employer] Site located within a Media Folder Tab by a registered [employer] Application Device. See "Media" tab in [...] HENT: Head: Normocephalic and atraumatic. Mouth/Throat: Lips: [place]. Mouth: Mucous membranes are moist. Cardiovascular: Rate [...] XR chest 1 view Final Result 1. Lines/Tubes/Devices/Hardw are: Leads noted. Please confirm position and function [...] Fidel Navas MD (more content not included)... [facility] ED Provider Note Emergency Department Encounter [facility] Patient: Kevan La : 1975 [...] toward the left greater trochanter. He is group home had reported that he is currently on chemotherapy. He was hospitalized recently due to concerns of an abscess and had this managed by general surgery at [facility]. He receives most of his care for hidradenitis suppurativa at and is requesting to be transferred given that they are familiar with his care. Believe this is appropriate due to patient will require further evaluation by the surgery and primary team taking care of his chronic wound. We will continue IV antibiotics and IV pressors and transfer patient to [facility] for management. Diagnostics interpreted by me: I personally discussed the patient's management with other clinicians: Critical Care note: This patient was unstable and required constant supervision by me for 35 minutes during their visit. The patient's condition requiring intervention included: sepsis evaluation, multiple reassessments, vasopressors. This critical care time did not include time for procedures or time spent by the physicians medical receptionist medical assistant if they were caring for this [...] Mack, DO [employer] Levi Mack, 12/22/24 1730 Levi Mack DO 12/22/24 1755 [facility] ED Provider Note I received this sydni ent in signout who has been awaiting transfer to [facility]) for septic shock in the setting of a left buttock wound requiring Levophed. I reviewed his labs and his medications and unfortunately has not been dosed with Zosyn since 1 PM. I reordered that and also timed for every 6 hours. He has been boarding in our emergency department for 16 hours now. We reached out to [facility] and they stated that there would not [...] fluid responsive. I reached back out to [facility] to get him accepted to a regular nursing floor. I spoke with Dr Benitez at [facility] who accepted the patient to the regular nursing floor but they will still not have beds until most likely later this afternoon so will plan to admit him here medically so that the can be under the supervision and care of a hospitalist. Admitted in stable condition. Mary Calvert MD 12/23/24 0629 [facility] ED Provider Note Pt signed out to me by Dr. Mack. Pt is awaiting transfer to for septic shock in setting of left buttock wound. Mani Dc, 12/23/24 0115 Normal [facility] LACTIC ACID WITH REFLEXon Lactate [Moles/Vol] 1.7 mmol/L Normal 0.5-2.2 [facility] Comment on above: Performed By: #### L [id number] ####Automation Technician: JAZLYN JIMENEZ ([id number])[facility] [place] [address] Laboratory - Chemistry and C hemistry - challengeon 12-22-2024 Lactate [Moles/Vol] 1.7 mmol/L 0.5 - 2. 2 mmol/L [facility] Laboratory - Hematology and Cell countson 12-22-2024 Band form neutrophils (Bld) [#/Vol] 0.4 10*3/uL High NINF - 0.0 10*3/uL [facility] Band form neutrophils/100 WBC (Bld) 2 % High NINF - 0 % [facility] Basophils (Bld) [#/Vol] 0.2 10*3/uL 0.0 - 0.2 10*3/uL [facility] Basophils/100 WBC (Bld) 1 % 0 - 2 % [facility] Lymphocytes (Bld) [#/Vol] 0.8 10*3/uL Low 1.0 - 4.3 10*3/uL [facility] Lymphocytes/100 WBC (Bld) 4 % Low 15 - 45 % [facility] Monocytes (Bld) [#/Vol] 1 10*3/uL High 0.0 - 0.9 10*3/uL [facility] Monocytes/100 WBC (Bld) 5 % 5 - 13 % [facility] Neutrophils (Bld) [#/Vol] 17.5 10*3/uL High 1.8 - 7.5 10*3/uL [facility] Ovalocytes LM Ql (Bld) Moderate Abnormal (none) [facility] Poikilocytosis LM Ql (Bld) Moderate Abnormal (none) [facility] RBC morphology finding Nom (Bld) abnormal [facility] Segmented neutrophils/100 WBC (Bld) 88 % High 38 - 82 % [facility] Stomatocytes LM Ql (Bld) Moderate Abnormal (none) [facility] MANUAL DIFFERENTIAL (CELLAVI CHRIS)on 12-22-2024 BAND NEUTROPHILS TOTAL PER COUNTED LEUKOCYTES BY MANUAL COUNT 2 Normal [facility] Comment on above: Performed By: #### L [id number], [id number] #### Automation Technician: JAZLYN JIMENEZ ([id number]) [facility] ([address] BANDS (10*3/UL) IN BLOOD-CELLAVISION 0.4 10*3/uL High <=0.0 [facility] Comment on above: Performed By: #### L [id number], [id number] #### Automation Technician: JAZLYN JIMENEZ ([id number]) [facility] [address] [place] [address] [place] BASOPHILS (10*3/UL) IN BLOOD-CELLAVISION 0.2 10*3/uL Normal 0.0-0.2 [facility] Comment on above: Performed By: #### L [id number], [id number] #### Automation Technician: JAZLYN JIMENEZ ([id number]) [facility] [address] [place] [address] [place] BASOPHILS TOTAL PER COUNTED LEUKOCYTES BY MANUAL COUNT 1 Normal [facility] Comment on above: Performed By: #### L [id number], [id number] #### Automation Technician: JAZLYN JIMENEZ ([id number]) [facility] ([facility]) [address] [place] [address] [place] BASOPHILS/100 LEUKOCYTES IN BLOOD-CELLAVISION 1 % Normal 0-2 [facility] Comment on above: Performed By: #### L [id number], [id number] #### Automation Technician: JAZLYN JIMENEZ ([id number]) [facility] [address] [place] [address] [place] BLASTS TOTAL PER COUNTED LEUKOCYTES BY MANUAL COUNT Normal [facility] Comment on above: Performed By: #### L [id number], [id number] #### Automation Technician: JAZLYN JIMENEZ ([id number]) [facility] ([facility]) [address] [place] [address] [place] EOSINOPHILS TOTAL PER COUNTED LEUKOCYTES BY MANUAL COUNT Normal [facility] Comment on above: Performed By: #### L [id number], [id number] #### Automation Technician: JAZLYN JIMENEZ ([id number]) [facility] ([facility]) [address] [place] [address] [place] LYMPHOCYTES (10*3/UL) IN BLOOD-CELLAVISION 0.8 10*3/uL Low 1.0-4.3 [facility] Comment on above: Performed By: #### L [id number], [id number] #### Automation Technician: JAZLYN JIMENEZ ([id number]) [facility] ([facility]) [address] [place] [address] [place] LYMPHOCYTES TOTAL PER COUNTED LEUKOCYTES BY MANUAL COUNT 4 Normal [facility] Comment on above: Performed By: #### L [id number], [id number] #### Automation Technician: JAZLYN JIMENEZ ([id number]) [facility] ([facility]) [address] [place] [address] [place] LYMPHOCYTES/100 LEUKOCYTES IN BLOOD-CELLAVISION 4 % Low 15-45 [facility] Comment on above: Performed By: #### L [id number], [id number] #### Automation Technician: JAZLYN JIMENEZ ([id number]) [facility] [address] [place] [address] [place] METAMYELOCYTES TOTAL PER COUNTED LEUKOCYTES BY MANUAL COUNT [facility] Comment on above: Performed By: #### L [id number], [id number] #### Automation Technician: JAZLYN JIMENEZ ([id number]) [facility] ([facility]) [address] [place] [address] [place] MONOCYTES (10*3/UL) IN BLOOD-CELLAVISION 1.0 10*3/uL High 0.0-0.9 [facility] Comment on above: Performed By: #### L [id number], [id number] #### Automation Technician: JAZLYN JIMENEZ ([id number]) [facility] ([facility]) [address] [place] [address] [place] MONOCYTES TOTAL PER COUNTED LEUKOCYTES BY MANUAL COUNT 5 Normal [facility] Comment on above: Performed By: #### L [id number], [id number] #### Automation Technician: JAZLYN JIMENEZ ([id number]) [facility] ([facility]) [address] [place] [address] [place] MONOCYTES/100 LEUKOCYTES IN BLOOD-SAM 5 % Normal 5-13 [facility] Comment on above: Performed By: #### L [id number], [id number] #### Automation Technician: JAZLYN JIMENEZ ([id number]) [facility] ([facility]) [address] [place] [address] [place] MYELOCYTES COUNTED BY MANUAL COUNT Normal [facility] Comment on above: Performed By: #### L [id number], [id number] #### Automation Technician: JAZLYN JIMENEZ ([id number]) [facility] ([facility]) [address] [place] [address] [place] NEUTROPHILS BAND FORM/100 LEUKOCYTES IN BLOOD-CELLAVISI 2 % High <=0 [facility] Comment on above: Performed By: #### L [id number], [id number] #### Automation Technician: JAZLYN JIMENEZ ([id number]) [facility] [address] [place] [address] [place] NEUTROPHILS TOTAL PER COUNTED LEUKOCYTES BY MANUAL COUNT 89 Normal [facility] Comment on above: Performed By: #### L [id number], [id number] #### Automation Technician: JAZLYN JIMENEZ ([id number]) [facility] ([facility]) [address] [place] [address] [place] OVALOCYTES PRESENCE IN BLOOD BY LIGHT MICROSCOPY Moderate Abnormal (none) [facility] Comment on above: Performed By: #### L [id number], [id number] #### Automation Technician: JAZLYN JIMENEZ ([id number]) [facility] ([facility]) [address] [place] [address] [place] POIKILOCYTOSIS (PRESENCE) IN BLOOD BY LIGHT MICROSCOPY Moderate Abnormal (none) [facility] Comment on above: Performed By: #### L [id number], [id number] #### Automation Technician: JZALYN JIMENEZ ([id number]) [facility] ([facility]) [address] [place] [address] [place] PROMYELOCYTES TOTAL PER COUNTED LEUKOCYTES BY MANUAL COUNT Normal [facility] Comment on above: Performed By: #### L [id number], [id number] #### Automation Technician: JAZLYN JIMENEZ ([id number]) [facility] ([facility]) [address] [place] [address] [place] RBC MORPHOLOGY IN BLOOD abnormal Normal [facility] Comment on above: Performed By: #### L [id number], [id number] #### Automation Technician: JAZLYN JIMENEZ ([id number]) [facility] [address] [place] [address] [place] SEGMENTED NEUTROPHILS (10*3/UL) IN BLOOD-CELLAVISION 17.5 10*3/uL High 1.8-7.5 [facility] Comment on above: Performed By: #### L [id number], [id number] #### Automation Technician: JAZLYN JIMENEZ ([id number]) [facility] ([facility]) [address] [place] [address] [place] SEGMENTED NEUTROPHILS/100 LEUKOCYTES-CE 88 % High 38-82 [facility] Comment on above: Performed By: #### L [id number], [id number] #### Automation Technician: JAZLYN JIMENEZ ([id number]) [facility]) [address] [place] [address] STOMATOCYTES IN BLOOD BY LIGHT MICROSCOPY Moderate Abnormal (none) [facility] Comment on above: Performed By: #### L [id number], [id number] #### Automation Technician: JAZLYN JIMENEZ ([id number]) [facility] ([facility]) [address] [place] [address] UNCLASSIFIED CELLS TOTAL PER COUNTED LEUKOCYTES BY MANUAL COUNT Normal [facility] Comment on above: Performed By: #### L [id number], [id number] #### Automation Technician: JAZLYN JIMENEZ ([id number]) [facility]) [address] [place] [address] VARIANT LYMPHOCYTES TOTAL PER COUNTED LEUKOCYTES BY MANUAL COUNT Normal [facility] Comment on above: Performed By: #### L [id number], [id number] #### Automation Technician: JAZLYN JIMENEZ ([id number]) [facility]) [address] [place] [address] No Panel Informationon 12-22 Atypical Lymphocytes Manual [facility] Bands Manual 2 [facility] Basophils Manual 1 [facility] Blasts Manual [facility] Eosinophils Manual [facility] Interpretation and review of laboratory results Abnormal [facility] Lymphocytes Manual 4 [facility] Metamyelocytes Manual [facility] Monocytes Manual 5 [facility] Myelocytes Manual [facility] Neutrophils Manual 89 [facility] Promyelocytes Manual [facility] Unclassified Cells, Manual [facility] Interpretation and review of laboratory results Normal [facility] Progress Noteon 12-22-2024 Progress Note Culture reviewed. Awaiting sensitivity results Normal [facility] Urinalysis complete panel (U )on 12-22-2024 Bilirubin Ql (U) Negative Negative mg/dL [facility] Clarity (U) Clear Clear [facility] Color (U) Light Yellow Lt. Yellow [facility] Glucose Ql (U) Normal Normal (<70) mg/dL [facility] Hemoglobin Ql (U) Negative Negative mg/dL [facility] Interpretation and review of laboratory results Normal [facility] Ketones (U) [Mass/Vol] Negative Negat sulema mg/dL [facility] Leukocyte esterase Test strip Ql (U) Negative Negative Gabe/uL [facility] Nitrite Ql (U) Negative Negative [facility] pH (U) 6.0 [pH] 5.0 - 8.0 pH [facility] Protein (U) [Mass/Vol] Negative Negat sulema mg/dL [facility] Specific gravity (U) [Rel density] 1.009 1.005 - 1.030 [facility] Urobilinogen (U) [Mass/Vol] Normal Normal (0-1) mg/dL [facility] XR Chest Single viewon 12-22 1. Lines/Tubes/Devices/Hardw are: Leads noted. Please confirm position and function [...] MD Electronically Signed Date/Time: 12/22/2024 1:25 PM [facility] [employer] Patient Name: KEVAN LA : 1975 Exam Date/Time: 12/22/2024 13:20 Procedure: XR CHEST 1 VIEW Ordering Provider: LEON, , RONNA Reason For Exam: concern for sepsis EXAM TYPE: RADIOLOGIC EXAMINATION, CHEST, SINGLE VIEW FRONTAL (CXR SINGLE VIEW) EXAM DATE AND TIME: 12/22/2024 1:20 PM EDT INDICATION: Concern for sepsis COMPARISON: 09/12/2024 TECHNIQUE: A single portable frontal view of the thorax was obtained and reviewed. Special views: None. [facility] Fidel Navas MD - 12/22/2024 [facility] LA [facility] 1975 [id number] Exam Date/Time: 12/22/2024 13:20 Procedure: XR CHEST 1 VIEW Ordering Provider: LEON NICOLE Reason For Exam: concern for sepsis EXAM TYPE: RADIOLOGIC EXAMINATION, CHEST, SINGLE VIEW FRONTAL (CXR SINGLE VIEW) EXAM DATE AND TIME: 12/22/2024 1:20 PM EDT INDICATION: Concern for sepsis COMPARISON: 09/12/2024 TECHNIQUE: A single portable frontal view of the thorax was obtained and reviewed. Special views: None. IMPRESSION: 1. Lines/Tubes/Devices/Hardw are: Leads noted. Please confirm position and function [...] Report Dictated on Electronically Signed By: Fidel aNvas MD Electronically Signed Date/Time: 12/22/2024 1:25 PM EDT [facility] [email or web address] Radiology Study observation (narrative) [facility] XR Chest Single viewOrdered By: Fidel Navas on 12-22-2024 [facility] Work Phone: XR Hip - left 3 Viewson 1. Irregular soft ti ssue heterogeneity and subcutaneous emphysema projecting of the left thigh soft tissues. Patient was noted to have an abscess in this region on prior CT. Consider follow-up cross-sectional imaging. 2. No acute osseous abnormality identified. Report Dictated on Electronically Signed By: Jamison Covarrubias MD Electronically Signed Date/Time: 12/22/2024 1:33 PM EDT [facility] Patient Name: KEVAN LA [...] present involving the left thigh soft tissues. [facility] Jamison Covarrubias MD - 12/22/2024 Patient [...] Electronically Signed Date/Time: 12/22/2024 1:33 PM EDT [facility] Radiology Study observation (narrative) [facility] XR Hip - left 3 ViewsOrdered By: Jamison Covarrubias on 12-22-2024 [facility] Work Phone: CBC W Auto Differential pane l (Bld)on 12-19-2024 Basophils (Bld) [#/Vol] 0.05 10*3/uL [facility] Basophils/100 WBC (Bld) 0.3 % 0.0 - 2.0 % [facility] Eosinophils (Bld) [#/Vol] 0.4 10*3/uL [facility] Eosinophils/100 WBC (Bld) 2.7 % 0.0 - 6.0 % [facility] Erythrocyte distribution width (RBC) [Ratio] 17.4 % High 11.5 - 14.5 % [facility] Hematocrit (Bld) [Volume fraction] 27.2 % Low 41.0 - 52.0 % [facility] Hemoglobin (Bld) [Mass/Vol] 8.2 g/dL Low 13.5 - 17.5 g/dL [facility] Immature granulocytes (Bld) [#/Vol] 0.07 10*3/uL [facility] Immature granulocytes/100 WBC (Bld) 0.5 % 0.0 - 0.9 % [facility] Interpretation and review of laboratory results Abnormal [facility] Lymphocytes (Bld) [#/Vol] 1.9 10*3/uL [facility] Lymphocytes/100 WBC (Bld) 12.7 % 13.0 - 44.0 % [facility] MCH (RBC) [Entitic mass] 25.7 pg Low 26.0 - 34.0 pg [facility] MCHC (RBC) [Mass/Vol] 30.1 g/dL Low 32.0 - 36.0 g/dL [facility] MCV (RBC) [Entitic vol] 85 fL 80 - 100 fL [facility] Monocytes (Bld) [#/Vol] 1.38 10*3/uL High [facility] Monocytes/100 WBC (Bld) 9.2 % 2.0 - 10.0 % [facility] Neutrophils (Bld) [#/Vol] 11.2 10*3/uL High [facility] Neutrophils/100 WBC (Bld) 74.6 % 40.0 - 80.0 % [facility] Nucleated RBC/100 WBC (Bld) [Ratio] 0 % [facility] Platelets (Bld) [#/Vol] 699 10*3/uL High [facility] RBC (Bld) [#/Vol] 3.19 10*6/uL Low [facility] WBC (Bld) [#/Vol] 15 10*3/uL High [facility] Magnesiumon 12-19-2024 Magnesium [Mass/Vol] 2.08 mg/dL 1.60 - 2.40 mg/dL [facility] Magnesium [Mass/Vol]on 12-19 Interpretation and review of laboratory results Normal [facility] No Panel Informationon 12-19 [facility] Renal function 2000 panelon 12-19-2024 Albumin BCP dye [Mass/Vol] 3.1 g/dL Low 3.4 - 5.0 g/dL [facility] Anion gap [Moles/Vol] 11 mmol/L 10 - 2 0 mmol/L [facility] Calcium [Mass/Vol] 10.9 mg/dL High 8.6 - 10. 6 mg/dL [facility] Chloride [Moles/Vol] 99 mmol/L 98 - 10 7 mmol/L [facility] CO2 [Moles/Vol] 31 mmol/L 21 - 32 mmol/L [facility] Creatinine [Mass/Vol] 1.14 mg/dL 0.50 - 1.30 mg/dL [facility] GFR/1.73 sq M.predicted among non-blacks MDRD (S/P/Bld) [Vol rate/Area] 78 mL/min/{1.73_m2} - PINF [facility] Glucose [Mass/Vol] 102 mg/dL High 74 - 99 mg/dL [facility] Interpretation and review of laboratory results Abnormal [facility] Phosphate [Mass/Vol] 2.7 mg/dL 2.5 - 4 .9 mg/dL [facility] Potassium [Moles/Vol] 4.9 mmol/L 3.5 - 5.3 mmol/L [facility] Sodium [Moles/Vol] 136 mmol/L 136 - 145 mmol/L [facility] Urea nitrogen [Mass/Vol] 13 mg/dL 6 - 23 mg/dL [facility] CBC W Auto Differential pane l (Bld)on 12-18-2024 Basophils (Bld) [#/Vol] 0.07 10*3/uL [facility] Basophils/100 WBC (Bld) 0.5 % 0.0 - 2.0 % [facility] Eosinophils (Bld) [#/Vol] 0.63 10*3/uL [facility] Eosinophils/100 WBC (Bld) 4.8 % 0.0 - 6.0 % [facility] Erythrocyte distribution width (RBC) [Ratio] 17.3 % High 11.5 - 14.5 % [facility] Hematocrit (Bld) [Volume fraction] 28.5 % Low 41.0 - 52.0 % [facility] Hemoglobin (Bld) [Mass/Vol] 8.5 g/dL Low 13.5 - 17.5 g/dL [facility] Immature granulocytes (Bld) [#/Vol] 0.06 10*3/uL [facility] Immature granulocytes/100 WBC (Bld) 0.5 % 0.0 - 0.9 % [facility] Interpretation and review of laboratory results Abnormal [facility] Lymphocytes (Bld) [#/Vol] 2.06 10*3/uL [facility] Lymphocytes/100 WBC (Bld) 15.6 % 13.0 - 44.0 % [facility] MCH (RBC) [Entitic mass] 25.1 pg Low 26.0 - 34.0 pg [facility] MCHC (RBC) [Mass/Vol] 29.8 g/dL Low 32.0 - 36.0 g/dL [facility] MCV (RBC) [Entitic vol] 84 fL 80 - 100 fL [facility] Monocytes (Bld) [#/Vol] 1.3 10*3/uL High [facility] Monocytes/100 WBC (Bld) 9.8 % 2.0 - 10.0 % [facility] Neutrophils (Bld) [#/Vol] 9.09 10*3/uL High [facility] Neutrophils/100 WBC (Bld) 68.8 % 40.0 - 80.0 % [facility] Nucleated RBC/100 WBC (Bld) [Ratio] 0 % [facility] Platelets (Bld) [#/Vol] 705 10*3/uL High [facility] RBC (Bld) [#/Vol] 3.38 10*6/uL Low [facility] WBC (Bld) [#/Vol] 13.2 10*3/uL High [facility] ECG 12 LeadOrdered By: Yamilet Villa on 12-18-2024 Atrial Rate 72 BPM [facility] Work Phone: [phone] P [place] 58 degrees [facility] Work Phone: [phone] P Offset 180 ms [facility] Work Phone: [phone] P On[place] 141 ms [facility] Work Phone: [phone] [place] Interval 154 ms [facility] Work Phone: [phone] Q Onset 218 ms [facility] Work Phone: [phone] QRS Count 12 beats [facility] Work Phone: [phone] QRS Duration 92 ms [facility] Work Phone: [phone] QT Interval 382 ms [facility] Work Phone: [phone] QTC Calculation(Bazett) 418 ms [facility] Work Phone: [phone] QTC [place] 406 ms [facility] Work Phone: [phone] R [place] 55 degrees [facility] Work Phone: [phone] [place] 43 degrees [facility] Work Phone: T Offset 409 ms [facility] Work Phone: [phone] Ventricular Rate 72 BPM [facility] Work Phone: [facility] Work Phone: ECG 12 Leadon 12-18-2024 [facility] Work Phone: CBC W Auto Differential pane l (Bld)on 12-17-2024 Basophils (Bld) [#/Vol] 0.09 10*3/uL [facility] Basophils/100 WBC (Bld) 0.7 % 0.0 - 2.0 % [facility] Eosinophils (Bld) [#/Vol] 0.65 10*3/uL [facility] Eosinophils/100 WBC (Bld) 4.9 % 0.0 - 6.0 % [facility] Erythrocyte distribution width (RBC) [Ratio] 17.4 % High 11.5 - 14.5 % [facility] Hematocrit (Bld) [Volume fraction] 29 % Low 41.0 - 52.0 % [facility] Hemoglobin (Bld) [Mass/Vol] 8.5 g/dL Low 13.5 - 17.5 g/dL [facility] Immature granulocytes (Bld) [#/Vol] 0.06 10*3/uL [facility] Immature granulocytes/100 WBC (Bld) 0.4 % 0.0 - 0.9 % [facility] Interpretation and review of laboratory results Abnormal [facility] Lymphocytes (Bld) [#/Vol] 2.18 10*3/uL [facility] Lymphocytes/100 WBC (Bld) 16.3 % 13.0 - 44.0 % [facility] MCH (RBC) [Entitic mass] 25.1 pg Low 26.0 - 34.0 pg [facility] MCHC (RBC) [Mass/Vol] 29.3 g/dL Low 32.0 - 36.0 g/dL [facility] MCV (RBC) [Entitic vol] 86 fL 80 - 100 fL [facility] Monocytes (Bld) [#/Vol] 1.22 10*3/uL High [facility] Monocytes/100 WBC (Bld) 9.1 % 2.0 - 10.0 % [facility] Neutrophils (Bld) [#/Vol] 9.17 10*3/uL High [facility] Neutrophils/100 WBC (Bld) 68.6 % 40.0 - 80.0 % [facility] Nucleated RBC/100 WBC (Bld) [Ratio] 0 % [facility] Platelets (Bld) [#/Vol] 754 10*3/uL High [facility] RBC (Bld) [#/Vol] 3.38 10*6/uL Low [facility] WBC (Bld) [#/Vol] 13.4 10*3/uL High [facility] Magnesiumon 12-17-2024 Magnesium [Mass/Vol] 1.94 mg/dL 1.60 - 2.40 mg/dL [facility] Magnesium [Mass/Vol]on 12-17 Interpretation and review of laboratory results Normal [facility] No Panel Informationon 12-17 [facility] Renal function 2000 panelon 12-17-2024 Albumin BCP dye [Mass/Vol] 3.3 g/dL Low 3.4 - 5.0 g/dL [facility] Anion gap [Moles/Vol] 12 mmol/L 10 - 2 0 mmol/L [facility] Calcium [Mass/Vol] 11.3 mg/dL High 8.6 - 10. 6 mg/dL [facility] Chloride [Moles/Vol] 99 mmol/L 98 - 10 7 mmol/L [facility] CO2 [Moles/Vol] 30 mmol/L 21 - 32 mmol/L [facility] Creatinine [Mass/Vol] 1.18 mg/dL 0.50 - 1.30 mg/dL [facility] GFR/1.73 sq M.predicted among non-blacks MDRD (S/P/Bld) [Vol rate/Area] 75 mL/min/{1.73_m2} - PINF [facility] Glucose [Mass/Vol] 92 mg/dL 74 - 99 mg/dL [facility] Interpretation and review of laboratory results Abnormal [facility] Phosphate [Mass/Vol] 2.6 mg/dL 2.5 - 4 .9 mg/dL [facility] Potassium [Moles/Vol] 4.1 mmol/L 3.5 - 5.3 mmol/L [facility] Sodium [Moles/Vol] 137 mmol/L 136 - 145 mmol/L [facility] Urea nitrogen [Mass/Vol] 14 mg/dL 6 - 23 mg/dL [facility] CBC W Auto Differential pane l (Bld)on 12-16-2024 Basophils (Bld) [#/Vol] 0.07 10*3/uL [facility] Basophils/100 WBC (Bld) 0.5 % 0.0 - 2.0 % [facility] Eosinophils (Bld) [#/Vol] 0.72 10*3/uL High [facility] Eosinophils/100 WBC (Bld) 5.6 % 0.0 - 6.0 % [facility] Erythrocyte distribution width (RBC) [Ratio] 17.3 % High 11.5 - 14.5 % [facility] Hematocrit (Bld) [Volume fraction] 27.8 % Low 41.0 - 52.0 % [facility] Hemoglobin (Bld) [Mass/Vol] 8.3 g/dL Low 13.5 - 17.5 g/dL [facility] Immature granulocytes (Bld) [#/Vol] 0.07 10*3/uL [facility] Immature granulocytes/100 WBC (Bld) 0.5 % 0.0 - 0.9 % [facility] Interpretation and review of laboratory results Abnormal [facility] Lymphocytes (Bld) [#/Vol] 2.28 10*3/uL [facility] Lymphocytes/100 WBC (Bld) 17.9 % 13.0 - 44.0 % [facility] MCH (RBC) [Entitic mass] 25.3 pg Low 26.0 - 34.0 pg [facility] MCHC (RBC) [Mass/Vol] 29.9 g/dL Low 32.0 - 36.0 g/dL [facility] MCV (RBC) [Entitic vol] 85 fL 80 - 100 fL [facility] Monocytes (Bld) [#/Vol] 1.31 10*3/uL High [facility] Monocytes/100 WBC (Bld) 10.3 % 2.0 - 10.0 % [facility] Neutrophils (Bld) [#/Vol] 8.31 10*3/uL High [facility] Neutrophils/100 WBC (Bld) 65.2 % 40.0 - 80.0 % [facility] Nucleated RBC/100 WBC (Bld) [Ratio] 0 % [facility] Platelets (Bld) [#/Vol] 660 10*3/uL High [facility] RBC (Bld) [#/Vol] 3.28 10*6/uL [facility] ([facility]ld[facility] [#/Vol] 12.8 10*3/uL High [facility] RF videography Hypopharynx a nd Esophagus Views for swallowing function W speech and W barium contrast Veronica 12-16-2024 [facility] MM[facility] Work Phone: Radiology Study observation (narrative) [facility] Work Phone: RF videography Hypopharynx a nd Esophagus Views for swallowing function W speech and W barium contrast POOrdered By: Jayson Abdi on 12-16-2024 [facility] Work Phone: [employer] Modified Barium Swallow Evaluationon 12-16-2024 [facility] Work Phone: CBC W Auto Differential pane l (Bld)Ordered By: Ronna Bergeron on 12-15-2024 Basophils (Bld) [#/Vol] 0.06 10*3/uL [facility] Basophils/100 WBC (Bld) 0.4 % 0.0 - 2.0 % [facility] Eosinophils (Bld) [#/Vol] 0.69 10*3/uL [facility] Eosinophils/100 WBC (Bld) 4.9 % 0.0 - 6.0 % [facility] Erythrocyte distribution width (RBC) [Ratio] 17.3 % High 11.5 - 14.5 % [facility] Hematocrit (Bld) [Volume fraction] 27.6 % Low 41.0 - 52.0 % [facility] Hemoglobin (Bld) [Mass/Vol] 8.5 g/dL Low 13.5 - 17.5 g/dL [facility] Immature granulocytes (Bld) [#/Vol] 0.06 10*3/uL [facility] Immature granulocytes/100 WBC (Bld) 0.4 % 0.0 - 0.9 % [facility] Interpretation and review of laboratory results Abnormal [facility] Lymphocytes (Bld) [#/Vol] 2.15 10*3/uL [facility] Lymphocytes/100 WBC (Bld) 15.4 % 13.0 - 44.0 % [facility] MCH (RBC) [Entitic mass] 26 pg 26.0 - 34.0 pg [facility] MCHC (RBC) [Mass/Vol] 30.8 g/dL Low 32.0 - 36.0 g/dL [facility] MCV (RBC) [Entitic vol] 84 fL 80 - 100 fL [facility] Monocytes (Bld) [#/Vol] 1.49 10*3/uL High [facility] Monocytes/100 WBC (Bld) 10.7 % 2.0 - 10.0 % [facility] Neutrophils (Bld) [#/Vol] 9.49 10*3/uL High [facility] Neutrophils/100 WBC (Bld) 68.2 % 40.0 - 80.0 % [facility] Nucleated RBC/100 WBC (Bld) [Ratio] 0 % [facility] Platelets (Bld) [#/Vol] 696 10*3/uL High [facility] RBC (Bld) [#/Vol] 3.27 10*6/uL Low [facility] WBC (Bld) [#/Vol] 13.9 10*3/uL High [facility] Comprehensive metabolic 2000 panelOrdered By: Eitan Calvo on 12-15-2024 Albumin BCP dye [Mass/Vol] 3.1 g/dL Low 3.4 - 5.0 g/dL [facility] ALP [Catalytic activity/Vol] 65 U/L 33 - 120 U/L [facility] ALT With P-5'-P [Catalytic activity/Vol] 16 U/L 10 - 52 U/L [facility] Anion gap [Moles/Vol] 15 mmol/L 10 - 2 0 mmol/L [facility] AST With P-5'-P [Catalytic activity/Vol] 17 U/L 9 - 39 U/L [facility] Bilirubin [Mass/Vol] 0.2 mg/dL 0.0 - 1 .2 mg/dL [facility] Calcium [Mass/Vol] 10.6 mg/dL 8.6 - 10. 6 mg/dL [facility] Chloride [Moles/Vol] 100 mmol/L 98 - 10 7 mmol/L [facility] CO2 [Moles/Vol] 28 mmol/L 21 - 32 mmol/L [facility] Creatinine [Mass/Vol] 1.12 mg/dL 0.50 - 1.30 mg/dL [facility] GFR/1.73 sq M.predicted among non-blacks MDRD (S/P/Bld) [Vol rate/Area] 80 mL/min/{1.73_m2} - PINF [facility] Glucose [Mass/Vol] 107 mg/dL High 74 - 99 mg/dL [facility] Interpretation and review of laboratory results Abnormal [facility] Potassium [Moles/Vol] 4.6 mmol/L 3.5 - 5.3 mmol/L [facility] Protein [Mass/Vol] 7.2 g/dL 6.4 - 8.2 g/dL [facility] Sodium [Moles/Vol] 138 mmol/L 136 - 145 mmol/L [facility] Urea nitrogen [Mass/Vol] 12 mg/dL 6 - 23 mg/dL [facility] CBC W Auto Differential pane l (Bld)on 12-14-2024 Basophils (Bld) [#/Vol] 0.07 10*3/uL [facility] Basophils/100 WBC (Bld) 0.6 % 0.0 - 2.0 % [facility] Eosinophils (Bld) [#/Vol] 0.67 10*3/uL [facility] Eosinophils/100 WBC (Bld) 5.9 % 0.0 - 6.0 % [facility] Erythrocyte distribution width (RBC) [Ratio] 17.2 % High 11.5 - 14.5 % [facility] Hematocrit (Bld) [Volume fraction] 27.8 % Low 41.0 - 52.0 % [facility] Hemoglobin (Bld) [Mass/Vol] 8.1 g/dL Low 13.5 - 17.5 g/dL [facility] Immature granulocytes (Bld) [#/Vol] 0.05 10*3/uL [facility] Immature granulocytes/100 WBC (Bld) 0.4 % 0.0 - 0.9 % [facility] Interpretation and review of laboratory results Abnormal [facility] Lymphocytes (Bld) [#/Vol] 2.33 10*3/uL [facility] Lymphocytes/100 WBC (Bld) 20.5 % 13.0 - 44.0 % [facility] MCH (RBC) [Entitic mass] 25.2 pg Low 26.0 - 34.0 pg [facility] MCHC (RBC) [Mass/Vol] 29.1 g/dL Low 32.0 - 36.0 g/dL [facility] MCV (RBC) [Entitic vol] 86 fL 80 - 100 fL [facility] Monocytes (Bld) [#/Vol] 1.21 10*3/uL High [facility] Monocytes/100 WBC (Bld) 10.6 % 2.0 - 10.0 % [facility] Neutrophils (Bld) [#/Vol] 7.04 10*3/uL [facility] Neutrophils/100 WBC (Bld) 62 % 40.0 - 80.0 % [facility] Nucleated RBC/100 WBC (Bld) [Ratio] 0 % [facility] Platelets (Bld) [#/Vol] 699 10*3/uL High [facility] RBC (Bld) [#/Vol] 3.22 10*6/uL Low [facility] WBC (Bld) [#/Vol] 11.4 10*3/uL High [facility] CBC W Auto Differential pane l (Bld)on 12-13-2024 Basophils (Bld) [#/Vol] 0.05 10*3/uL [facility] Basophils/100 WBC (Bld) 0.5 % 0.0 - 2.0 % [facility] Eosinophils (Bld) [#/Vol] 0.11 10*3/uL [facility] Eosinophils/100 WBC (Bld) 1 % 0.0 - 6.0 % [facility] Erythrocyte distribution width (RBC) [Ratio] 16.8 % High 11.5 - 14.5 % [facility] Hematocrit (Bld) [Volume fraction] 25.4 % Low 41.0 - 52.0 % [facility] Hemoglobin (Bld) [Mass/Vol] 7.6 g/dL Low 13.5 - 17.5 g/dL [facility] Immature granulocytes (Bld) [#/Vol] 0.05 10*3/uL [facility] Immature granulocytes/100 WBC (Bld) 0.5 % 0.0 - 0.9 % [facility] Interpretation and review of laboratory results Abnormal [facility] Lymphocytes (Bld) [#/Vol] 1.74 10*3/uL [facility] Lymphocytes/100 WBC (Bld) 15.7 % 13.0 - 44.0 % [facility] MCH (RBC) [Entitic mass] 25.2 pg Low 26.0 - 34.0 pg [facility] MCHC (RBC) [Mass/Vol] 29.9 g/dL Low 32.0 - 36.0 g/dL [facility] MCV (RBC) [Entitic vol] 84 fL 80 - 100 fL [facility] Monocytes (Bld) [#/Vol] 1.2 10*3/uL High [facility] Monocytes/100 WBC (Bld) 10.8 % 2.0 - 10.0 % [facility] Neutrophils (Bld) [#/Vol] 7.92 10*3/uL High [facility] Neutrophils/100 WBC (Bld) 71.5 % 40.0 - 80.0 % [facility] Nucleated RBC/100 WBC (Bld) [Ratio] 0 % [facility] Platelets (Bld) [#/Vol] 663 10*3/uL High [facility] RBC (Bld) [#/Vol] 3.01 10*6/uL Low [facility]ive [facility] WBC (Bld) [#/Vol] 11.1 10*3/uL [facility] Magnesiumon 12-13-2024 Magnesium [Mass/Vol] 1.97 mg/dL 1.60 - 2.40 mg/dL [facility] Magnesium [Mass/Vol]on 12-13 Interpretation and review of laboratory results Normal [facility] No Panel Informationon 12-13 [facility] Renal function 2000 panelon 12-13-2024 Albumin BCP dye [Mass/Vol] 3.1 g/dL Low 3.4 - 5.0 g/dL [facility] Anion gap [Moles/Vol] 12 mmol/L 10 - 2 0 mmol/L [facility] Calcium [Mass/Vol] 10.1 mg/dL 8.6 - 10. 6 mg/dL [facility] Chloride [Moles/Vol] 102 mmol/L 98 - 10 7 mmol/L [facility] CO2 [Moles/Vol] 29 mmol/L 21 - 32 mmol/L [facility] Creatinine [Mass/Vol] 1.01 mg/dL 0.50 - 1.30 mg/dL [facility] GFR/1.73 sq M.predicted among non-blacks MDRD (S/P/Bld) [Vol rate/Area] 90 mL/min/{1.73_m2} - PINF [facility] Glucose [Mass/Vol] 126 mg/dL High 74 - 99 mg/dL [facility] Interpretation and review of laboratory results Abnormal [facility] Phosphate [Mass/Vol] 2.2 mg/dL Low 2.5 - 4 .9 mg/dL [facility] Potassium [Moles/Vol] 4.1 mmol/L 3.5 - 5.3 mmol/L [facility] Sodium [Moles/Vol] 139 mmol/L 136 - 145 mmol/L [facility] Urea nitrogen [Mass/Vol] 15 mg/dL 6 - 23 mg/dL [facility] CBC W Auto Differential pane l (Bld)on 12-12-2024 Basophils (Bld) [#/Vol] 0.06 10*3/uL [facility] Basophils/100 WBC (Bld) 0.5 % 0.0 - 2.0 % [facility] Eosinophils (Bld) [#/Vol] 0.66 10*3/uL [facility] Eosinophils/100 WBC (Bld) 5.1 % 0.0 - 6.0 % [facility] Erythrocyte distribution width (RBC) [Ratio] 16.7 % High 11.5 - 14.5 % [facility] Hematocrit (Bld) [Volume fraction] 26.5 % Low 41.0 - 52.0 % [facility] Hemoglobin (Bld) [Mass/Vol] 8.1 g/dL Low 13.5 - 17.5 g/dL [facility] Immature granulocytes (Bld) [#/Vol] 0.05 10*3/uL [facility] Immature granulocytes/100 WBC (Bld) 0.4 % 0.0 - 0.9 % [facility] Interpretation and review of laboratory results Abnormal [facility] Lymphocytes (Bld) [#/Vol] 1.86 10*3/uL [facility] Lymphocytes/100 WBC (Bld) 14.4 % 13.0 - 44.0 % [facility] MCH (RBC) [Entitic mass] 26 pg 26.0 - 34.0 pg [facility] MCHC (RBC) [Mass/Vol] 30.6 g/dL Low 32.0 - 36.0 g/dL [facility] MCV (RBC) [Entitic vol] 85 fL 80 - 100 fL [facility] Monocytes (Bld) [#/Vol] 1.35 10*3/uL High [facility] Monocytes/100 WBC (Bld) 10.4 % 2.0 - 10.0 % [facility] Neutrophils (Bld) [#/Vol] 8.98 10*3/uL High [facility] Neutrophils/100 WBC (Bld) 69.2 % 40.0 - 80.0 % [facility] Nucleated RBC/100 WBC (Bld) [Ratio] 0 % [facility] Platelets (Bld) [#/Vol] 630 10*3/uL High [facility] RBC (Bld) [#/Vol] 3.11 10*6/uL Low [facility] WBC (Bld) [#/Vol] 13 10*3/uL [facility] ECG 12-LEADon 12-12-2024 ECG 12-LEAD Ventricular Rate 72 Atrial Rate 72 P-R Interval 154 QRS Duration 92 Q-T Interval 382 QTC Calculation(Bazett) 418 P [place] 58 R [place] 55 T [place] 43 QRS Count 12 Q Onset 218 P Onset 141 P Offset 180 T Offset 409 QTC [place] 406 Diagnosis Normal sinus rhythm Normal ECG When compared with ECG of 12-DEC-2024 12:27, (unconfirmed) No significant change was found Confirmed by Bobby Villa ([id number]) on 12/18/2024 5:50:09 PM Normal [facility] Hepatic function 2000 panelo n 12-12-2024 Albumin BCP dye [Mass/Vol] 2.9 g/dL Low 3.4 - 5.0 g/dL [facility] ALP [Catalytic activity/Vol] 56 U/L 33 - 120 U/L [facility] ALT With P-5'-P [Catalytic activity/Vol] 7 U/L Low 10 - 52 U/L [facility] AST With P-5'-P [Catalytic activity/Vol] 6 U/L Low 9 - 39 U/L [facility] Bilirubin [Mass/Vol] 0.2 mg/dL 0.0 - 1 .2 mg/dL [facility] Bilirubin.direct [Mass/Vol] 0.1 mg/dL 0.0 - 0.3 mg/dL [facility] Interpretation and review of laboratory results Abnormal [facility] Protein [Mass/Vol] 6.9 g/dL 6.4 - 8.2 g/dL [facility] MR Thigh - left WO and W con trast Mp 12-12-2024 MM[facility] Work Phone: [facility] Work Phone: Radiology Study observation (narrative) [facility] Work Phone: MR Thigh - left WO contrasto n 12-12-2024 [facility] Work Phone: MR Thigh - left WO contrastO rdered By: Kong Armijo on 12-12-2024 [facility] Work Phone: Magnesiumon 12-12-2024 Magnesium [Mass/Vol] 2.01 mg/dL 1.60 - 2.40 mg/dL [facility] Magnesium [Mass/Vol]on 12-12 Interpretation and review of laboratory results Normal [facility] No Panel Informationon 12-12 [facility] Renal function 2000 panelon 12-12-2024 Albumin BCP dye [Mass/Vol] 3 g/dL Low 3.4 - 5.0 g/dL [facility] Anion gap [Moles/Vol] 11 mmol/L 10 - 2 0 mmol/L [facility] Calcium [Mass/Vol] 11.1 mg/dL High 8.6 - 10. 6 mg/dL [facility] Chloride [Moles/Vol] 103 mmol/L 98 - 10 7 mmol/L [facility] CO2 [Moles/Vol] 30 mmol/L 21 - 32 mmol/L [facility] Creatinine [Mass/Vol] 1.15 mg/dL 0.50 - 1.30 mg/dL [facility] GFR/1.73 sq M.predicted among non-blacks MDRD (S/P/Bld) [Vol rate/Area] 77 mL/min/{1.73_m2} - PINF [facility] Glucose [Mass/Vol] 102 mg/dL High 74 - 99 mg/dL [facility] Interpretation and review of laboratory results Abnormal [facility] Phosphate [Mass/Vol] 2.9 mg/dL 2.5 - 4 .9 mg/dL [facility] Potassium [Moles/Vol] 4.7 mmol/L 3.5 - 5.3 mmol/L [facility] Sodium [Moles/Vol] 139 mmol/L 136 - 145 mmol/L [facility] Urea nitrogen [Mass/Vol] 14 mg/dL 6 - 23 mg/dL [facility] Bacteria identified Cx Nom ( Bld)on 12-11-2024 Interpretation and review of laboratory results Normal [facility] CBC W Auto Differential pane l (Bld)on 12-11-2024 Basophils (Bld) [#/Vol] 0.06 10*3/uL [facility] Basophils/100 WBC (Bld) 0.5 % 0.0 - 2.0 % [facility] Eosinophils (Bld) [#/Vol] 0.43 10*3/uL [facility] Eosinophils/100 WBC (Bld) 3.7 % 0.0 - 6.0 % [facility] Erythrocyte distribution width (RBC) [Ratio] 16.7 % High 11.5 - 14.5 % [facility] Hematocrit (Bld) [Volume fraction] 27.1 % Low 41.0 - 52.0 % [facility] Hemoglobin (Bld) [Mass/Vol] 8.1 g/dL Low 13.5 - 17.5 g/dL [facility] Immature granulocytes (Bld) [#/Vol] 0.05 10*3/uL [facility] Immature granulocytes/100 WBC (Bld) 0.4 % 0.0 - 0.9 % [facility] Interpretation and review of laboratory results Abnormal [facility] Lymphocytes (Bld) [#/Vol] 1.57 10*3/uL [facility] [place] Lymphocytes/100 WBC (Bld) 13.6 % 13.0 - 44.0 % [facility] [place] MCH (RBC) [Entitic mass] 25.5 pg Low 26.0 - 34.0 pg [facility] [place] MCHC (RBC) [Mass/Vol] 29.9 g/dL Low 32.0 - 36.0 g/dL [facility] [place] MCV (RBC) [Entitic vol] 85 fL 80 - 100 fL [facility] [place] Monocytes (Bld) [#/Vol] 1.8 10*3/uL High [facility] [place] Monocytes/100 WBC (Bld) 15.6 % 2.0 - 10.0 % [facility] [place] Neutrophils (Bld) [#/Vol] 7.64 10*3/uL [facility] [place] Neutrophils/100 WBC (Bld) 66.2 % 40.0 - 80.0 % [facility] [place] Nucleated RBC/100 WBC (Bld) [Ratio] 0 % [facility] [place] Platelets (Bld) [#/Vol] 649 10*3/uL High [facility] [place] RBC (Bld) [#/Vol] 3.18 10*6/uL Low [facility] WBC (Bld) [#/Vol] 11.6 10*3/uL High [facility] - Microbiology an d Antimicrobial susceptibilityon 12-11-2024 Bacteria identified Cx Nom (Bld) No growth at 4 days - FINAL REPORT [facility] [place] Magnesiumon 12-11-2024 Magnesium [Mass/Vol] 1.96 mg/dL 1.60 - 2.40 mg/dL [facility] [place] Magnesium [Mass/Vol]on 12-11 Interpretation and review of laboratory results Normal [facility] [place] No Panel Informationon 12-11 [facility] [place] Renal function 2000 panelon 12-11-2024 Albumin BCP dye [Mass/Vol] 2.9 g/dL Low 3.4 - 5.0 g/dL [facility] [place] Anion gap [Moles/Vol] 9 mmol/L Low 10 - 2 0 mmol/L [facility] [place] Calcium [Mass/Vol] 10.4 mg/dL 8.6 - 10. 6 mg/dL [facility] [place] Chloride [Moles/Vol] 101 mmol/L 98 - 10 7 mmol/L [facility] [place] CO2 [Moles/Vol] 29 mmol/L 21 - 32 mmol/L [facility] [place] Creatinine [Mass/Vol] 1.34 mg/dL High 0.50 - 1.30 mg/dL [facility] [place] GFR/1.73 sq M.predicted among non-blacks MDRD (S/P/Bld) [Vol rate/Area] 64 mL/min/{1.73_m2} - PINF [facility] [place] Glucose [Mass/Vol] 99 mg/dL 74 - 99 mg/dL [facility] [place] Interpretation and review of laboratory results Abnormal [facility] [place] Phosphate [Mass/Vol] 3 mg/dL 2.5 - 4 .9 mg/dL [facility] [place] Potassium [Moles/Vol] 4.3 mmol/L 3.5 - 5.3 mmol/L [facility] [place] Sodium [Moles/Vol] 135 mmol/L Low 136 - 145 mmol/L [facility] [place] Urea nitrogen [Mass/Vol] 13 mg/dL 6 - 23 mg/dL [facility] [place] CBC W Auto Differential pane l (Bld)on 12-10-2024 Basophils (Bld) [#/Vol] 0.07 10*3/uL [facility] [place] Basophils/100 WBC (Bld) 0.6 % 0.0 - 2.0 % [facility] [place] Eosinophils (Bld) [#/Vol] 0.52 10*3/uL [facility] [place] Eosinophils/100 WBC (Bld) 4.5 % 0.0 - 6.0 % [facility] [place] Erythrocyte distribution width (RBC) [Ratio] 16.8 % High 11.5 - 14.5 % [facility] [place] Hematocrit (Bld) [Volume fraction] 26.7 % Low 41.0 - 52.0 % [facility] [place] Hemoglobin (Bld) [Mass/Vol] 8.1 g/dL Low 13.5 - 17.5 g/dL [facility] [place] Immature granulocytes (Bld) [#/Vol] 0.04 10*3/uL [facility] [place] Immature granulocytes/100 WBC (Bld) 0.3 % 0.0 - 0.9 % [facility] [place] Interpretation and review of laboratory results Abnormal [facility] [place] Lymphocytes (Bld) [#/Vol] 1.84 10*3/uL [facility] [place] Lymphocytes/100 WBC (Bld) 16.1 % 13.0 - 44.0 % [facility] [place] MCH (RBC) [Entitic mass] 25.8 pg Low 26.0 - 34.0 pg [facility] [place] MCHC (RBC) [Mass/Vol] 30.3 g/dL Low 32.0 - 36.0 g/dL [facility] [place] MCV (RBC) [Entitic vol] 85 fL 80 - 100 fL [facility] [place] Monocytes (Bld) [#/Vol] 1.42 10*3/uL High [facility] [place] Monocytes/100 WBC (Bld) 12.4 % 2.0 - 10.0 % [facility] [place] Neutrophils (Bld) [#/Vol] 7.57 10*3/uL [facility] [place] Neutrophils/100 WBC (Bld) 66.1 % 40.0 - 80.0 % [facility] [place] Nucleated RBC/100 WBC (Bld) [Ratio] 0 % [facility] [place] Platelets (Bld) [#/Vol] 663 10*3/uL High [facility] [place] RBC (Bld) [#/Vol] 3.14 10*6/uL Low [facility] WBC (Bld) [#/Vol] 11.5 10*3/uL High [facility] MR Thigh - left WO contrasto n 12-10-2024 Radiology Study observation (narrative) [facility] [place] Work Phone: Magnesiumon 12-10-2024 Magnesium [Mass/Vol] 1.9 mg/dL 1.60 - 2.40 mg/dL [facility] [place] No Panel Informationon 12-10 Interpretation and review of laboratory results Normal [facility] Renal function 2000 panelon 12-10-2024 Albumin BCP dye [Mass/Vol] 3 g/dL Low 3.4 - 5.0 g/dL [facility] [place] Anion gap [Moles/Vol] 12 mmol/L 10 - 2 0 mmol/L [facility] [place] Calcium [Mass/Vol] 10.1 mg/dL 8.6 - 10. 6 mg/dL [facility] [place] Chloride [Moles/Vol] 102 mmol/L 98 - 10 7 mmol/L [facility] [place] CO2 [Moles/Vol] 29 mmol/L 21 - 32 mmol/L [facility] [place] Creatinine [Mass/Vol] 1.28 mg/dL 0.50 - 1.30 mg/dL [facility] [place] GFR/1.73 sq M.predicted among non-blacks MDRD (S/P/Bld) [Vol rate/Area] 68 mL/min/{1.73_m2} - PINF [facility] [place] Glucose [Mass/Vol] 89 mg/dL 74 - 99 mg/dL [facility] [place] Interpretation and review of laboratory results Abnormal [facility] [place] Phosphate [Mass/Vol] 3.5 mg/dL 2.5 - 4 .9 mg/dL [facility] [place] Potassium [Moles/Vol] 4.1 mmol/L 3.5 - 5.3 mmol/L [facility] [place] Sodium [Moles/Vol] 139 mmol/L 136 - 145 mmol/L [facility] [place] Urea nitrogen [Mass/Vol] 11 mg/dL 6 - 23 mg/dL [facility] [place] Vancomycinon 12-10-2024 Vancomycin [Mass/Vol] 10.1 ug/mL 5.0 - 20.0 ug/mL [facility] [place] Vancomycin [Mass/Vol]on 11-17 [facility] [place] Bacteria identified Cx Nom ( Unsp spec)Ordered By: Mari Monique on 12-09-2024 Interpretation and review of laboratory results Abnormal [facility] [place] Microscopic observation Gram stain Nom (Unsp spec) (2+) Few Polymorphonuclear leukocytes Abnormal [facility] [place] Microscopic observation Gram stain Nom (Unsp spec) Positive Abnormal [facility] Blood type and Indirect anti body screen panel (Bld)on 12-09-2024 ABO group Nom (Bld) A [facility] Blood group antibody screen Ql Negative [facility] [place] D Ag Ql (Bld) Positive [facility] CBC W Auto Differential pane l (Bld)on 12-09-2024 Basophils (Bld) [#/Vol] 0.06 10*3/uL [facility] [place] Basophils/100 WBC (Bld) 0.6 % 0.0 - 2.0 % [facility] [place] Eosinophils (Bld) [#/Vol] 0.49 10*3/uL [facility] [place] Eosinophils/100 WBC (Bld) 4.8 % 0.0 - 6.0 % [facility] [place] Erythrocyte distribution width (RBC) [Ratio] 16.4 % High 11.5 - 14.5 % [facility] [place] Hematocrit (Bld) [Volume fraction] 25.6 % Low 41.0 - 52.0 % [facility] [place] Hemoglobin (Bld) [Mass/Vol] 8.3 g/dL Low 13.5 - 17.5 g/dL [facility] [place] Immature granulocytes (Bld) [#/Vol] 0.16 10*3/uL [facility] [place] Immature granulocytes/100 WBC (Bld) 1.6 % High 0.0 - 0.9 % [facility] [place] Interpretation and review of laboratory results Abnormal [facility] [place] Lymphocytes (Bld) [#/Vol] 1.81 10*3/uL [facility] [place] Lymphocytes/100 WBC (Bld) 17.8 % 13.0 - 44.0 % [facility] [place] MCH (RBC) [Entitic mass] 26.2 pg 26.0 - 34.0 pg [facility] [place] MCHC (RBC) [Mass/Vol] 32.4 g/dL 32.0 - 36.0 g/dL [facility] [place] MCV (RBC) [Entitic vol] 81 fL 80 - 100 fL [facility] [place] Monocytes (Bld) [#/Vol] 1.04 10*3/uL High [facility] [place] Monocytes/100 WBC (Bld) 10.2 % 2.0 - 10.0 % [facility] [place] Neutrophils (Bld) [#/Vol] 6.63 10*3/uL [facility] [place] Neutrophils/100 WBC (Bld) 65 % 40.0 - 80.0 % [facility] [place] Nucleated RBC/100 WBC (Bld) [Ratio] 0 % [facility] [place] Platelets (Bld) [#/Vol] 650 10*3/uL High [facility] [place] RBC (Bld) [#/Vol] 3.17 10*6/uL Low Unive [facility] WBC (Bld) [#/Vol] 10.2 10*3/uL [facility] 12-09-2024 Magnesium [Mass/Vol] 1.9 mg/dL 1.60 - 2.40 mg/dL [facility] [place] Magnesium [Mass/Vol]on 12-09 Interpretation and review of laboratory results Normal [facility] [place] No Panel Informationon 12-09 [facility] [place] PT and aPTT panel Coag (PPP) on 12-09-2024 aPTT Coag (PPP) [Time] 26 s Un [facility] INR Coag (PPP) [Relative time] 1.3 {INR} High 0.9 - 1.1 [facility] [place] Interpretation and review of laboratory results Abnormal [facility] [place] PT Coag (PPP) [Time] 14.[address] [facility] Renal function 2000 panelon 12-09-2024 Albumin BCP dye [Mass/Vol] 3.1 g/dL Low 3.4 - 5.0 g/dL [facility] [place] Anion gap [Moles/Vol] 15 mmol/L 10 - 2 0 mmol/L [facility] [place] Calcium [Mass/Vol] 9.8 mg/dL 8.6 - 10. 6 mg/dL [facility] [place] Chloride [Moles/Vol] 104 mmol/L 98 - 10 7 mmol/L [facility] [place] CO2 [Moles/Vol] 25 mmol/L 21 - 32 mmol/L [facility] [place] Creatinine [Mass/Vol] 1.2 mg/dL 0.50 - 1.30 mg/dL [facility] [place] GFR/1.73 sq M.predicted among non-blacks MDRD (S/P/Bld) [Vol rate/Area] 73 mL/min/{1.73_m2} - PINF [facility] [place] Glucose [Mass/Vol] 92 mg/dL 74 - 99 mg/dL [facility] [place] Interpretation and review of laboratory results Abnormal [facility] [place] Phosphate [Mass/Vol] 3.4 mg/dL 2.5 - 4 .9 mg/dL [facility] [place] Potassium [Moles/Vol] 3.6 mmol/L 3.5 - 5.3 mmol/L [facility] [place] Sodium [Moles/Vol] 140 mmol/L 136 - 145 mmol/L [facility] [place] Urea nitrogen [Mass/Vol] 15 mg/dL 6 - 23 mg/dL [facility] [place] Tissue/Wound Culture/SmearOr dered By: Mari Monique on 12-09-2024 Bacteria identified Cx Nom (Unsp spec) (4+) Abundant Mixed Gram-Positive and Gram-Negative Bacteria [facility] [place] CBC W Auto Differential pane l (Bld)on 12-08-2024 Basophils (Bld) [#/Vol] 0.05 10*3/uL [facility] [place] Basophils/100 WBC (Bld) 0.4 % 0.0 - 2.0 % [facility] [place] Eosinophils (Bld) [#/Vol] 0.55 10*3/uL [facility] [place] Eosinophils/100 WBC (Bld) 4.8 % 0.0 - 6.0 % [facility] [place] Erythrocyte distribution width (RBC) [Ratio] 17 % High 11.5 - 14.5 % [facility] [place] Hematocrit (Bld) [Volume fraction] 26.1 % Low 41.0 - 52.0 % [facility] [place] Hemoglobin (Bld) [Mass/Vol] 7.8 g/dL Low 13.5 - 17.5 g/dL [facility] [place] Immature granulocytes (Bld) [#/Vol] 0.05 10*3/uL [facility] [place] Immature granulocytes/100 WBC (Bld) 0.4 % 0.0 - 0.9 % [facility] [place] Interpretation and review of laboratory results Abnormal [facility] [place] Lymphocytes (Bld) [#/Vol] 1.34 10*3/uL [facility] [place] Lymphocytes/100 WBC (Bld) 11.7 % 13.0 - 44.0 % [facility] [place] MCH (RBC) [Entitic mass] 25.3 pg Low 26.0 - 34.0 pg [facility] [place] MCHC (RBC) [Mass/Vol] 29.9 g/dL Low 32.0 - 36.0 g/dL [facility] [place] MCV (RBC) [Entitic vol] 85 fL 80 - 100 fL [facility] [place] Monocytes (Bld) [#/Vol] 1.36 10*3/uL High [facility] [place] Monocytes/100 WBC (Bld) 11.9 % 2.0 - 10.0 % [facility] [place] Neutrophils (Bld) [#/Vol] 8.1 10*3/uL High [facility] [place] Neutrophils/100 WBC (Bld) 70.8 % 40.0 - 80.0 % [facility] [place] Nucleated RBC/100 WBC (Bld) [Ratio] 0 % [facility] [place] Platelets (Bld) [#/Vol] 595 10*3/uL High [facility] [place] RBC (Bld) [#/Vol] 3.08 10*6/uL Low [facility] WBC (Bld) [#/Vol] 11.5 10*3/uL High [facility] Comprehensive metabolic 2000 panelon 12-08-2024 Albumin BCP dye [Mass/Vol] 2.9 g/dL Low 3.4 - 5.0 g/dL [facility] [place] ALP [Catalytic activity/Vol] 48 U/L 33 - 120 U/L [facility] [place] ALT With P-5'-P [Catalytic activity/Vol] 6 U/L Low 10 - 52 U/L [facility] [place] Anion gap [Moles/Vol] 12 mmol/L 10 - 2 0 mmol/L [facility] [place] AST With P-5'-P [Catalytic activity/Vol] 6 U/L Low 9 - 39 U/L [facility] [place] Bilirubin [Mass/Vol] 0.3 mg/dL 0.0 - 1 .2 mg/dL [facility] [place] Calcium [Mass/Vol] 9.4 mg/dL 8.6 - 10. 6 mg/dL [facility] [place] Chloride [Moles/Vol] 106 mmol/L 98 - 10 7 mmol/L [facility] [place] CO2 [Moles/Vol] 26 mmol/L 21 - 32 mmol/L [facility] [place] Creatinine [Mass/Vol] 1.33 mg/dL High 0.50 - 1.30 mg/dL [facility] [place] GFR/1.73 sq M.predicted among non-blacks MDRD (S/P/Bld) [Vol rate/Area] 65 mL/min/{1.73_m2} - PINF [facility] [place] Glucose [Mass/Vol] 112 mg/dL High 74 - 99 mg/dL [facility] [place] Interpretation and review of laboratory results Abnormal [facility] [place] Potassium [Moles/Vol] 3.8 mmol/L 3.5 - 5.3 mmol/L [facility] [place] Protein [Mass/Vol] 6.5 g/dL 6.4 - 8.2 g/dL [facility] [place] Sodium [Moles/Vol] 140 mmol/L 136 - 145 mmol/L [facility] [place] Urea nitrogen [Mass/Vol] 17 mg/dL 6 - 23 mg/dL [facility] [place] No Panel Informationon 12-08 [facility] [place] Vancomycinon 12-08-2024 Vancomycin [Mass/Vol] 16.6 ug/mL 5.0 - 20.0 ug/mL [facility] [place] Vancomycin [Mass/Vol]on 11-17 Interpretation and review of laboratory results Normal [facility] C-reactive proteinon 025 CRP [Mass/Vol] 10.84 mg/dL High NINF - 1.00 mg/dL [facility] [place] CBC W Auto Differential pane l (Bld)on 12-07-2024 Basophils (Bld) [#/Vol] 0 10*3/uL 0.0 - 0.2 10*3/uL [email or web address] Basophils/100 WBC (Bld) 0.3 % 0.0 - 2.0 % [email or web address] [email or web address] Eosinophils (Bld) [#/Vol] 0.4 10*3/uL 0.0 - 0.5 10*3/uL [facility] Eosinophils/100 WBC (Bld) 3.3 % 0.0 - 6.0 % [facility] [email or web address] Erythrocyte distribution width (RBC) [Ratio] 16.6 % High 11.5 - 15.0 % [facility] [email or web address] Hematocrit (Bld) [Volume fraction] 26.4 % Low 40.0 - 52.0 % [facility] [email or web address] Hemoglobin (Bld) [Mass/Vol] 8.4 g/dL Low 13.0 - 18.0 g/dL [facility] [email or web address] Immature granulocytes (Bld) [#/Vol] 0 10*3/uL NINF - 0.1 10*3/uL [facility] Immature granulocytes/100 WBC (Bld) 0.3 % 0.0 - 2.0 % [email or web address] [email or web address] Interpretation and review of laboratory results Abnormal [facility] Lymphocytes (Bld) [#/Vol] 1.7 10*3/uL 1.0 - 4.3 10*3/uL [facility] Lymphocytes/100 WBC (Bld) 13.9 % Low 15.0 - 45.0 % [facility] [email or web address] MCH (RBC) [Entitic mass] 25.7 pg Low 26.0 - 34.0 pg [facility] MCHC (RBC) [Mass/Vol] 31.8 % 30.5 - 36.0 % [facility] [email or web address] MCV (RBC) [Entitic vol] 80.7 fL 77.0 - 99.0 fL [facility] [email or web address] Monocytes (Bld) [#/Vol] 1.4 10*3/uL High 0.0 - 0.9 10*3/uL [facility] Monocytes/100 WBC (Bld) 11.3 % 5.0 - 13.0 % [facility] Neutrophils (Bld) [#/Vol] 8.5 10*3/uL High 1.8 - 7.5 10*3/uL [facility] Neutrophils/100 WBC (Bld) 70.9 % 38.0 - 82.0 % [facility] [email or web address] Nucleated RBC/100 WBC (Bld) [Ratio] 0 % [facility] [email or web address] Platelet mean volume (Bld) [Entitic vol] 8.5 fL Low 9.0 - 12.7 fL [facility] Platelets (Bld) [#/Vol] 609 10*3/uL High 140 - 440 10*3/uL [facility] RBC (Bld) [#/Vol] 3.27 10*6/uL Low 4.40 - 5.9 0 10*6/uL [facility] WBC (Bld) [#/Vol] 12 10*3/uL High 3.6 - 10.7 10*3/uL [facility] CBC WITH AUTO DIFFERENTIALon 12-07-2024 Basophils (Bld) [#/Vol] 0.0 10*3/uL Normal 0.0-0.2 [facility] Comment on above: Performed By: #### L [id number] ####Automation Technician: JAZLYN JIMENEZ ([id number])[facility])[address] [place] [address] Basophils/100 WBC (Bld) 0.3 % Normal 0.0-2.0 [facility] [email or web address] [facility] Comment on above: Performed By: #### L [id number] ####Automation Technician: JAZLYN JIMENEZ ([id number])[facility])[address] [place] [address] Eosinophils (Bld) [#/Vol] 0.4 10*3/uL Normal 0.0-0.5 [facility] Comment on above: Performed By: #### L [id number] ####Automation Technician: JAZLYN JIMENEZ ([id number])[address] Eosinophils/100 WBC (Bld) 3.3 % Normal 0.0-6.0 [facility] Comment on above: Performed By: #### L [id number] ####Automation Technician: JAZLYN JIMENEZ ([id number])[facility])[address] [place] [address] Erythrocyte distribution width (RBC) [Ratio] 16.6 % High 11.5-15.0 [facility] Comment on above: Performed By: #### L [id number] ####Automation Technician: JAZLYN JIMENEZ ([id number])[address] Hematocrit (Bld) [Volume fraction] 26.4 % Low 40.0-52.0 [facility] Comment on above: Performed By: #### L [id number] ####Automation Technician: JAZLYN JIMENEZ ([id number])[address] Hemoglobin (Bld) [Mass/Vol] 8.4 g/dL Low 13.0-18.0 [facility] Comment on above: Performed By: #### L [id number] ####Automation Technician: JAZLYN JIMENEZ ([id number])[address] IMMATURE GRANS % 0.3 % Normal 0.0-2.0 [facility] Comment on above: Performed By: #### L [id number] ####Automation Technician: JAZLYN JIMENEZ ([id number])[address] IMMATURE GRANS ABSOLUTE 0.0 10*3/uL Normal <0.1 [facility] Comment on above: Performed By: #### L [id number] ####Automation Technician: JAZLYN JIMENEZ ([id number])[facility])[address] [place] [address] Lymphocytes (Bld) [#/Vol] 1.7 10*3/uL Normal 1.0-4.3 [facility] Comment on above: Performed By: #### L [id number] ####Automation Technician: JAZLYN JIMENEZ ([id number])[facility])[address] [place] [address] Lymphocytes/100 WBC (Bld) 13.9 % Low 15.0-45.0 [facility] Comment on above: Performed By: #### L [id number] ####Automation Technician: JAZLYN JIMENEZ ([id number])[facility])[address] [place] [address] MCH (RBC) [Entitic mass] 25.7 pg Low 26.0-34.0 [facility] Comment on above: Performed By: #### L [id number] ####Automation Technician: JAZLYN JIMENEZ ([id number])[facility])[address] [place] [address] MCHC 31.8 % Normal 30.5-36.0 [facility] Comment on above: Performed By: #### L [id number] ####Automation Technician: JAZLYN JIMENEZ ([id number])[facility])[address] [place] [address] MCV (RBC) [Entitic vol] 80.7 fL Normal 77.0-99.0 [facility] Comment on above: Performed By: #### L [id number] ####Automation Technician: JAZLYN JIMENEZ ([id number])[facility])[address] [place] [address] Monocytes (Bld) [#/Vol] 1.4 10*3/uL High 0.0-0.9 [facility] Comment on above: Performed By: #### L [id number] ####Automation Technician: JAZLYN JIMENEZ ([id number])[facility])[address] [place] [address] Monocytes/100 WBC (Bld) 11.3 % Normal 5.0-13.0 [facility] Comment on above: Performed By: #### L [id number] ####Automation Technician: JAZLYN JIMENEZ ([id number])[facility])[address] [place] [address] NEUTROPHILS ABSOLUTE 8.5 10*3/uL High 1.8-7.5 [facility] Comment on above: Performed By: #### L [id number] ####Automation Technician: JAZLYN JIMENEZ ([id number])[facility])[address] [place] [address] Neutrophils/100 WBC (Bld) 70.9 % Normal 38.0-82.0 [facility] Comment on above: Performed By: #### L [id number] ####Automation Technician: JAZLYN JIMENEZ ([id number])[facility] ([facility])[address] [place] [address] NRBC 0.0 /100 WBCs Normal 0.0-2.0 [facility] Comment on above: Performed By: #### L [id number] ####Automation Technician: JAZLYN JIMENEZ ([id number])[facility])[address] [place] [address] Platelet mean volume (Bld) [Entitic vol] 8.5 fL Low 9.0-12.7 [facility] Comment on above: Performed By: #### L [id number] ####Automation Technician: JAZLYN JIMENEZ ([id number])[facility] ([facility])[address] [place] [address] Platelets (Bld) [#/Vol] 609 10*3/uL High 140-440 [facility] Comment on above: Performed By: #### L [id number] ####Automation Technician: JAZLYN JIMENEZ ([id number])[facility] ([facility])[address] [place] [address] RBC (Bld) [#/Vol] 3.27 10*6/uL Low 4.40-5.90 [facility] Comment on above: Performed By: #### L [id number] ####Automation Technician: JAZLYN JIMENEZ ([id number])[facility] ([facility])[address] [place] [address] WBC (Bld) [#/Vol] 12.0 10*3/uL High 3.6-10.7 [facility] Comment on above: Performed By: #### L [id number] ####Automation Technician: JAZLYN JIMENEZ ([id number])[facility] ([facility])[address] [place] [address] CBC panel Auto (Bld)on 12-07 Erythrocyte distribution width (RBC) [Ratio] 16.8 % High 11.5 - 14.5 % [facility] Hematocrit (Bld) [Volume fraction] 26.5 % Low 41.0 - 52.0 % [facility] Hemoglobin (Bld) [Mass/Vol] 8 g/dL Low 13.5 - 17.5 g/dL [facility] Interpretation and review of laboratory results Abnormal [facility] MCH (RBC) [Entitic mass] 25.4 pg Low 26.0 - 34.0 pg [facility] MCHC (RBC) [Mass/Vol] 30.2 g/dL Low 32.0 - 36.0 g/dL [facility] MCV (RBC) [Entitic vol] 84 fL 80 - 100 fL [facility] Nucleated RBC/100 WBC (Bld) [Ratio] 0 % [facility] Platelets (Bld) [#/Vol] 645 10*3/uL High [facility] RBC (Bld) [#/Vol] 3.15 10*6/uL Low [facility] WBC (Bld) [#/Vol] 12 10*3/uL High [facility] COMPREHENSIVE METABOLIC PANE Yuriy 12-07-2024 Albumin [Mass/Vol] 2.5 g/dL Low 3.5-5.0 [facility] Comment on above: Performed By: #### L AB103, [id number], LAB17 ####Automation Technician: JAZLYN JIMENEZ ([id number])[facility] ([facility])[address] [place] [address] [place] ALP [Catalytic activity/Vol] 57 U/L Normal 40-150 [facility] Comment on above: Performed By: #### L AB103, [id number], LAB17 ####Automation Technician: JAZLYN JIMENEZ ([id number])[facility] [place] [address] [place] ALT [Catalytic activity/Vol] U/L Normal <40 [facility] Comment on above: Performed By: #### L AB103, [id number], LAB17 ####Automation Technician: JAZLYN JIMENEZ ([id number])[facility] ([facility])[address] [place] [address] Anion gap [Moles/Vol] 7 mmol/L Normal 3-13 [facility] Comment on above: Performed By: #### L AB103, [id number], LAB17 ####Automation Technician: JAZLYN JIMENEZ ([id number])[facility] [place] [address] [place] AST [Catalytic activity/Vol] 10 U/L Normal <34 [facility] Comment on above: Performed By: #### L AB103, [id number], LAB17 ####Automation Technician: JAZLYN JIMENEZ ([id number])[facility] [place] [address] [place] Bilirubin [Mass/Vol] 0.3 mg/dL Normal <1.2 [facility] Comment on above: Performed By: #### L AB103, [id number], LAB17 ####Automation Technician: JAZLYN JIMENEZ ([id number])[facility] ([facility])[address] [place] [address] [place] Calcium [Mass/Vol] 9.4 mg/dL Normal 8.4-10.2 [facility] Comment on above: Performed By: #### L AB103, [id number], LAB17 ####Automation Technician: JAZLYN JIMENEZ ([id number])[facility] ([facility])[address] [place] [address] [place] Chloride [Moles/Vol] 113 mmol/L High 98-107 [facility] Comment on above: Performed By: #### L AB103, [id number], LAB17 ####Automation Technician: JAZLYN JIMENEZ ([id number])[facility])[address] [place] [address] CO2 [Moles/Vol] 21 mmol/L Low 22-29 [facility] Comment on above: Performed By: #### L AB103, UCK554, LAB17 ####Automation Technician: JAZLYN JIMENEZ ([id number])[facility])[address] [place] [address] Creatinine [Mass/Vol] 1.17 mg/dL Normal 0.72-1.25 [facility] Comment on above: Performed By: #### L AB103, XPD193, LAB17 ####Automation Technician: JAZLYN JIMENEZ ([id number])[facility])[address] [place] [address] GLOMERULAR FILTRATION RATE ML/MIN/1.73 SQ M.PREDICTED 75.5 mL/min/1.73m*2 Normal >60.0 [facility] Comment on above: Result Comment: Calc ulation based on the Chronic Kidney Disease Epidemiology Collaboration (CKD-EPI) equation refit without adjustment for race Performed By: #### L AB103, [id number], LAB17 ####Automation Technician: JAZLYN JIMENEZ ([id number])[facility])[address] [place] [address] Glucose [Mass/Vol] 96 mg/dL Normal 74-100 [facility] Comment on above: Performed By: #### L AB103, DJR409, LAB17 ####Automation Technician: JAZLYN JIMENEZ ([id number])[facility])[address] [place] [address] Potassium [Moles/Vol] 3.9 mmol/L Normal 3.5-5.1 [facility] Comment on above: Result Comment: [facility] potassium values may be up to 0.5 mmol/L lower than serum values. Performed By: #### L AB103, AVE335, LAB17 ####Automation Technician: JAZLYN JIMENEZ ([id number])[facility] ([facility])[address] [place] [address] Protein [Mass/Vol] 6.6 g/dL Normal 6.4-8.3 [facility] Comment on above: Performed By: #### L AB103, ACV117, LAB17 ####Automation Technician: JAZLYN JIMENEZ ([id number])[facility] ([facility])[address] [place] [address] Sodium [Moles/Vol] 141 mmol/L Normal 136-145 [facility] Comment on above: Performed By: #### L AB103, [id number], LAB17 ####Automation Technician: JAZLYN JIMENEZ ([id number])[facility])[address] [place] [address] Urea nitrogen [Mass/Vol] 14 mg/dL Normal 9-23 [facility] Comment on above: Performed By: #### L AB103, OYQ196, LAB17 ####Automation Technician: JAZLYN JIMENEZ ([id number])[facility] ([facility])[address] [place] [address] Comprehensive metabolic 1998 panelon 12-07-2024 Albumin [Mass/Vol] 2.5 g/dL Low 3.5 - 5.0 g/dL [facility] ALP [Catalytic activity/Vol] 57 U/L 40 - 150 U/L [facility] ALT [Catalytic activity/Vol] U/L NINF - 40 U/L [facility] Anion gap [Moles/Vol] 7 mmol/L 3 - 13 mmol/L [facility] AST [Catalytic activity/Vol] 10 U/L NINF - 34 U/L [facility] Bilirubin [Mass/Vol] 0.3 mg/dL NINF - 1.2 mg/dL [facility] Calcium [Mass/Vol] 9.4 mg/dL 8.4 - 10. 2 mg/dL [facility] Chloride [Moles/Vol] 113 mmol/L High 98 - 10 7 mmol/L [facility] CO2 [Moles/Vol] 21 mmol/L Low 22 - 29 mmol/L [facility] Creatinine [Mass/Vol] 1.17 mg/dL 0.72 - 1.25 mg/dL [facility] GFR/1.73 sq M.predicted (S/P/Bld) [Vol rate/Area] 75.5 mL/min - PINF [facility] Comment on above: Calculation based on the Chronic Kidney Disease Epidemiology Collaboration (CKD-EPI) equation refit without adjustment for race Glucose [Mass/Vol] 96 mg/dL 74 - 100 mg/dL [facility] Interpretation and review of laboratory results Abnormal [facility] Potassium [Moles/Vol] 3.9 mmol/L 3.5 - 5.1 mmol/L [facility] Comment on above: Plasma potassium jeri ues may be up to 0.5 mmol/L lower than serum values. Protein [Mass/Vol] 6.6 g/dL 6.4 - 8.3 g/dL [facility] Sodium [Moles/Vol] 141 mmol/L 136 - 145 mmol/L [facility] Urea nitrogen [Mass/Vol] 14 mg/dL 9 - 23 mg/dL [facility] Comprehensive metabolic 2000 panelon 12-07-2024 Albumin BCP dye [Mass/Vol] 3.1 g/dL Low 3.4 - 5.0 g/dL [facility] ALP [Catalytic activity/Vol] 53 U/L 33 - 120 U/L [facility] ALT With P-5'-P [Catalytic activity/Vol] 7 U/L Low 10 - 52 U/L [facility] Anion gap [Moles/Vol] 13 mmol/L 10 - 2 0 mmol/L [facility] AST With P-5'-P [Catalytic activity/Vol] 8 U/L Low 9 - 39 U/L [facility] Bilirubin [Mass/Vol] 0.4 mg/dL 0.0 - 1 .2 mg/dL [facility] Calcium [Mass/Vol] 9.6 mg/dL 8.6 - 10. 6 mg/dL [facility] Chloride [Moles/Vol] 109 mmol/L High 98 - 10 7 mmol/L [facility] CO2 [Moles/Vol] 22 mmol/L 21 - 32 mmol/L [facility] Creatinine [Mass/Vol] 1.32 mg/dL High 0.50 - 1.30 mg/dL [facility] GFR/1.73 sq M.predicted among non-blacks MDRD (S/P/Bld) [Vol rate/Area] 65 mL/min/{1.73_m2} - PINF [facility] Glucose [Mass/Vol] 91 mg/dL 74 - 99 mg/dL [facility] Potassium [Moles/Vol] 3.9 mmol/L 3.5 - 5.3 mmol/L [facility] Protein [Mass/Vol] 6.7 g/dL 6.4 - 8.2 g/dL [facility] Sodium [Moles/Vol] 140 mmol/L 136 - 145 mmol/L [facility] Urea nitrogen [Mass/Vol] 16 mg/dL 6 - 23 mg/dL [facility] Consulton 12-07-2024 Consult Pharmacy Managed Vancomycin Dosing [...] creatinine, and vancomycin levels interfaced automatically to [employer] and data has been analyzed and interpreted. [...] DATE: 12/07/24 TIME: 6:11 AM Nicola Grace [facility] Clinical Pharmacist Available via Secure Chat [facility] ED Nursing Noteon 12-07-2024 ED Nursing Note Report to AMAN Galindo. [facility] ED Nursing Note Patient provided uri nal per request. Respirations even and unlabored. No acute distress noted. [facility] ED Nursing Note Report from AMAN Galindo. [facility] ED Nursing Note Report to Josie/AMAN and patient moved to room 9 with all belongings and breakfast tray [facility] ED Nursing Note Patient moving from 43 to 9 now [facility] ED Nursing Note RN/Margarita ordered breakfast for the patient per his preference [facility] ED Nursing Note Requested pharmacy t o retime Vanc due to 3 hour administration of Zosyn (& both ordered at same time) [facility] ED Nursing Note Patient actively vom iting - provider notified [facility] ED Nursing Note Report given to AMAN Sutton [facility] ESR Westergren method (Bld) [Velocity]on 12-07-2024 ESR (Bld) [Velocity] 102 mm/h High 0 - 20 mm/h [facility] Interpretation and review of laboratory results Abnormal [facility] Laboratory - Chemistry and C hemistry - challengeon 12-07-2024 Magnesium [Mass/Vol] 1.8 mg/dL 1.6 - 2 .6 mg/dL [facility] MAGNESIUMon 12-07-2024 Magnesium [Mass/Vol] 1.8 mg/dL Normal 1.6-2.6 [facility] Comment on above: Result Comment: ORDE R COMMENTS: Higher values can be expected in females during menses. Performed By: #### L AB103, [id number], LAB17 ####Automation Technician: JAZLYN JIMENEZ ([id number])[facility])[address] [place] [address] Magnesiumon 12-07-2024 Magnesium [Mass/Vol] 1.86 mg/dL 1.60 - 2.40 mg/dL [facility] Magnesium [Mass/Vol]on 12-07 Interpretation and review of laboratory results Normal [facility] Higher values can be expected in females during menses. [facility] No Panel Informationon 12-07 Interpretation and review of laboratory results Abnormal [facility] Interpretation and review of laboratory results Normal [facility] Nursing Noteon 12-07-2024 Nursing Note 1516 called report t o [facility] ambulance is here to pick patient up Normal [facility] PHOSPHORUSon 12-07-2024 Phosphate [Mass/Vol] 2.5 mg/dL Normal 2.3-4.7 [facility] Comment on above: Performed By: #### L AB103, [id number], LAB17 ####Automation Technician: JAZLYN JIMENEZ ([id number])[facility] ([facility])[address] [place] [address] Phosphate [Moles/Vol]on 11-17 Phosphate [Mass/Vol] 2.5 mg/dL 2.3 - 4 .7 mg/dL [facility] Progress Noteon 12-07-2024 Progress Note Physician Response Please review the following and provide your response below. Please clarify which of the following accurately describes the patient's CKD Stage: CKD Stage 2 (GFR 60-89) This documentation will become part of the patient's medical record. Normal [facility] BLOOD CULTUREon 12-06-2024 Bacteria identified Cx Nom (Bld) BLOOD CULTURE Reference No growth at 5 days ORDER COMMENTS: Blood Collection Site: Right Forearm [ S = SUSCEPTIBLE R = RESISTANT I = INTERMEDIATE S-DD = Susceptible-dose dependent NS = Non-susceptible NO = No Interpretation ] Normal [facility] Comment on above: Performed By: #### L [id number], [id number] #### Automation Technician: JAZLYN JIMENEZ ([id number]) [facility] ([facility]) [address] [place] [address] Bacteria identified Cx Nom (Bld) BLOOD CULTURE Reference No growth at 5 days ORDER COMMENTS: Blood Collection Site: Right Antecubital [ S = SUSCEPTIBLE R = RESISTANT I = INTERMEDIATE S-DD = Susceptible-dose dependent NS = Non-susceptible NO = No Interpretation ] Normal [facility] Comment on above: Performed By: #### L [id number], [id number] #### Automation Technician: JAZLYN JIMENEZ ([id number]) [facility] ([facility]) [address] [place] [address] C-REACTIVE PROTEINon CRP [Mass/Vol] 95.9 mg/L High <5.0 [facility] Comment on above: Performed By: #### L AB17, [id number] ####Automation Technician: JAZLYN JIMENEZ ([id number])[facility] ([facility])[address] [place] [address] CBC W Auto Differential pane l (Bld)on 12-06-2024 Basophils (Bld) [#/Vol] 0 10*3/uL 0.0 - 0.2 10*3/uL [facility] Basophils/100 WBC (Bld) 0.3 % 0.0 - 2.0 % [facility] Eosinophils (Bld) [#/Vol] 0.3 10*3/uL 0.0 - 0.5 10*3/uL [facility] Eosinophils/100 WBC (Bld) 2.4 % 0.0 - 6.0 % [facility] [email or web address] Erythrocyte distribution width (RBC) [Ratio] 16.9 % High 11.5 - 15.0 % [facility] [email or web address] Hematocrit (Bld) [Volume fraction] 28.6 % Low 40.0 - 52.0 % [facility] [email or web address] Hemoglobin (Bld) [Mass/Vol] 9 g/dL Low 13.0 - 18.0 g/dL [facility] [email or web address] Immature granulocytes (Bld) [#/Vol] 0 10*3/uL NINF - 0.1 10*3/uL [facility] Immature granulocytes/100 WBC (Bld) 0.3 % 0.0 - 2.0 % [facility] Interpretation and review of laboratory results Abnormal [facility] [email or web address] Lymphocytes (Bld) [#/Vol] 1.5 10*3/uL 1.0 - 4.3 10*3/uL [facility] [email or web address] Lymphocytes/100 WBC (Bld) 11.4 % Low 15.0 - 45.0 % [facility] MCH (RBC) [Entitic mass] 25.7 pg Low 26.0 - 34.0 pg [facility] MCHC (RBC) [Mass/Vol] 31.5 % 30.5 - 36.0 % [facility] [email or web address] MCV (RBC) [Entitic vol] 81.7 fL 77.0 - 99.0 fL [facility] [email or web address] Monocytes (Bld) [#/Vol] 1.1 10*3/uL High 0.0 - 0.9 10*3/uL [facility] [email or web address] Monocytes/100 WBC (Bld) 8.6 % 5.0 - 13.0 % [facility] [employer] Neutrophils (Bld) [#/Vol] 10 10*3/uL High 1.8 - 7.5 10*3/uL [facility] [email or web address] Neutrophils/100 WBC (Bld) 77 % 38.0 - 82.0 % [facility] [email or web address] Nucleated RBC/100 WBC (Bld) [Ratio] 0 % [facility] [email or web address] Platelet mean volume (Bld) [Entitic vol] 8.8 fL Low 9.0 - 12.7 fL [facility] [employer] Platelets (Bld) [#/Vol] 681 10*3/uL High 140 - 440 10*3/uL [facility] RBC (Bld) [#/Vol] 3.5 10*6/uL Low 4.40 - 5.9 0 10*6/uL [facility] WBC (Bld) [#/Vol] 13 10*3/uL High 3.6 - 10.7 10*3/uL [facility] CBC WITH AUTO DIFFERENTIALon 12-06-2024 Basophils (Bld) [#/Vol] 0.0 10*3/uL Normal 0.0-0.2 [facility] Comment on above: Performed By: #### L [id number], [id number] ####Automation Technician: JAZLYN JIMENEZ ([id number])[address] Basophils/100 WBC (Bld) 0.3 % Normal 0.0-2.0 [facility] Comment on above: Performed By: #### Kamila KELSEY, [id number] ####Automation Technician: JAZLYN JIMENEZ ([id number])[address] Eosinophils (Bld) [#/Vol] 0.3 10*3/uL Normal 0.0-0.5 [facility] Comment on above: Performed By: #### Kamila KELSEY, [id number] ####Automation Technician: JAZLYN JIMENEZ ([id number])[address] Eosinophils/100 WBC (Bld) 2.4 % Normal 0.0-6.0 [facility] Comment on above: Performed By: #### Kamila KELSEY, [id number] ####Automation Technician: JAZLYN JIMENEZ ([id number])[address] Erythrocyte distribution width (RBC) [Ratio] 16.9 % High 11.5-15.0 [facility] Comment on above: Performed By: #### Kamila KELSEY, [id number] ####Automation Technician: JAZLYN JIMENEZ ([id number])[address] Hematocrit (Bld) [Volume fraction] 28.6 % Low 40.0-52.0 [facility] Comment on above: Performed By: #### Kamila KELSEY, [id number] ####Automation Technician: JAZLYN JIMENEZ ([id number])[address] Hemoglobin (Bld) [Mass/Vol] 9.0 g/dL Low 13.0-18.0 [facility] Comment on above: Performed By: #### Kamila [id number], [id number] ####Automation Technician: JAZLYN JIMENEZ ([id number])[address] IMMATURE GRANS % 0.3 % Normal 0.0-2.0 [facility] Comment on above: Performed By: #### Kamila KELSEY, [id number] ####Automation Technician: JAZLYN JIMENEZ ([id number])[address] IMMATURE GRANS ABSOLUTE 0.0 10*3/uL Normal <0.1 [facility] Comment on above: Performed By: #### Kamila KELSEY, [id number] ####Automation Technician: JAZLYN JIMENEZ ([id number])[facility])[address] [place] [address] Lymphocytes (Bld) [#/Vol] 1.5 10*3/uL Normal 1.0-4.3 [facility] Comment on above: Performed By: #### Kamila KELSEY, [id number] ####Automation Technician: JAZLYN JIMENEZ ([id number])[address] Lymphocytes/100 WBC (Bld) 11.4 % Low 15.0-45.0 [facility] Comment on above: Performed By: #### Kamila KELSEY, [id number] ####Automation Technician: JAZLYN JIMENEZ ([id number])[address] MCH (RBC) [Entitic mass] 25.7 pg Low 26.0-34.0 [facility] Comment on above: Performed By: #### Kamila KELSEY, [id number] ####Automation Technician: JAZLYN JIMENEZ ([id number])[address] MCHC 31.5 % Normal 30.5-36.0 [facility] Comment on above: Performed By: #### Kamila KELSEY, [id number] ####Automation Technician: JAZLYN JIMENEZ ([id number])[address] MCV (RBC) [Entitic vol] 81.7 fL Normal 77.0-99.0 [facility] Comment on above: Performed By: #### Kamila [id number], [id number] ####Automation Technician: JAZLYN JIMENEZ ([id number])[facility])[address] [place] [address] Monocytes (Bld) [#/Vol] 1.1 10*3/uL High 0.0-0.9 [facility] Comment on above: Performed By: #### Kamila KELSEY, [id number] ####Automation Technician: JAZLYN JIMENEZ ([id number])[facility])[address] [place] [address] Monocytes/100 WBC (Bld) 8.6 % Normal 5.0-13.0 [facility] Comment on above: Performed By: #### Kamila KELSEY, [id number] ####Automation Technician: JAZLYN JIMENEZ ([id number])[facility])[address] [place] [address] NEUTROPHILS ABSOLUTE 10.0 10*3/uL High 1.8-7.5 [facility] Comment on above: Performed By: #### Kamila KELSEY, [id number] ####Automation Technician: JAZLYN JIMENEZ ([id number])[facility])[address] [place] [address] Neutrophils/100 WBC (Bld) 77.0 % Normal 38.0-82.0 [facility] Comment on above: Performed By: #### Kamila KELSEY, [id number] ####Automation Technician: JAZLYN JIMENEZ ([id number])[facility])[address] [place] [address] NRBC 0.0 /100 WBCs Normal 0.0-2.0 [facility] Comment on above: Performed By: #### L [id number], [id number] ####Automation Technician: JAZLYN JIMENEZ ([id number])[facility])[address] [place] [address] Platelet mean volume (Bld) [Entitic vol] 8.8 fL Low 9.0-12.7 [facility] Comment on above: Performed By: #### L IW3101, [id number] ####Automation Technician: JAZLYN JIMENEZ ([id number])[facility])[address] [place] [address] Platelets (Bld) [#/Vol] 681 10*3/uL High 140-440 [facility] Comment on above: Performed By: #### L [id number], [id number] ####Automation Technician: JAZLYN JIMENEZ ([id number])[facility])[address] [place] [address] RBC (Bld) [#/Vol] 3.50 10*6/uL Low 4.40-5.90 [facility] Comment on above: Performed By: #### L XM2998, [id number] ####Automation Technician: JAZLYN JIMENEZ ([id number])[facility])[address] [place] [address] WBC (Bld) [#/Vol] 13.0 10*3/uL High 3.6-10.7 [facility] Comment on above: Performed By: #### Kamila [id number], [id number] ####Automation Technician: JAZLYN JIMENEZ ([id number])[facility])[address] [place] [address] COMPLETE URINALYSISon 2024 BILIRUBIN, TOTAL PRESENCE IN URINE Negative Normal Negative [facility] Comment on above: Performed By: #### L [id number] ####Automation Technician: JAZLYN JIMENEZ ([id number])[facility])[address] [place] [address] Clarity (U) Clear Normal Clear [facility] Comment on above: Performed By: #### L AB347 ####Automation Technician: JAZLYN JIMENEZ ([id number])[facility])[address] [place] [address] Color (U) Light Yellow Normal Lt. Yellow [facility] Comment on above: Performed By: #### L AB347 ####Automation Technician: JAZLYN JIMENEZ ([id number])[facility] ([facility])[address] [place] [address] GLUCOSE (MG/DL) IN URINE Normal Normal Normal (<70) [facility] Comment on above: Performed By: #### L AB347 ####Automation Technician: JAZLYN JIMENEZ ([id number])[facility] ([facility])[address] [place] [address] HEMOGLOBIN PRESENCE IN URINE Negative Normal Negative [facility] Comment on above: Performed By: #### L AB347 ####Automation Technician: JAZLYN JIMENEZ ([id number])[facility] ([facility])[address] [place] [address] Ketones Ql (U) Negative Normal Negative [facility] Comment on above: Performed By: #### L AB347 ####Automation Technician: JAZLYN JIMENEZ ([id number])[facility] ([facility])[address] [place] [address] LEUKOCYTE ESTERASE PRESENCE IN URINE BY TEST STRIP Negative Normal Negative [facility] Comment on above: Performed By: #### L AB347 ####Automation Technician: JAZLYN JIMENEZ ([id number])[facility])[address] [place] [address] NITRITE PRESENCE IN URINE Negative Normal Negative [facility] Comment on above: Performed By: #### L [id number] ####Automation Technician: JAZLYN JIMENEZ ([id number])[facility] ([facility])[address] [place] [address] pH (U) 5.5 [pH] Normal 5.0-8.0 [facility] Comment on above: Performed By: #### L [id number] ####Automation Technician: JAZLYN JIMENEZ ([id number])[facility])[address] [place] [address] Protein (U) [Mass/Vol] Negative Normal Negative [facility] Comment on above: Performed By: #### L [id number] ####Automation Technician: JAZLYN JIMENEZ ([id number])[facility])[address] [place] [address] Specific gravity (U) [Rel density] 1.016 Normal 1.005-1.030 [facility] Comment on above: Performed By: #### L [id number] ####Automation Technician: JAZLYN JIMENEZ ([id number])[facility])[address] [place] [address] UROBILINOGEN (MG/DL) IN URINE Normal Normal Normal (0-1) [facility] Comment on above: Performed By: #### L [id number] ####Automation Technician: JAZLYN JIMENEZ ([id number])[facility])[address] [place] [address] COMPREHENSIVE METABOLIC PANE Yuriy 12-06-2024 Albumin [Mass/Vol] 2.7 g/dL Low 3.5-5.0 [facility] Comment on above: Performed By: #### L AB17, [id number] ####Automation Technician: JAZLYN JIMENEZ ([id number])[facility] ([facility])[address] [place] [address] ALP [Catalytic activity/Vol] 63 U/L Normal 40-150 [facility] Comment on above: Performed By: #### L AB17, [id number] ####Automation Technician: JAZLYN JIMENEZ ([id number])[facility])[address] [place] [address] ALT [Catalytic activity/Vol] 7 U/L Normal <40 [facility] Comment on above: Performed By: #### L AB17, [id number] ####Automation Technician: JAZLYN JIMENEZ ([id number])[facility] ([facility])[address] [place] [address] Anion gap [Moles/Vol] 8 mmol/L Normal 3-13 [facility] Comment on above: Performed By: #### L AB17, [id number] ####Automation Technician: JAZLYN JIMENEZ ([id number])[facility])[address] [place] [address] AST [Catalytic activity/Vol] 17 U/L Normal <34 [facility] Comment on above: Performed By: #### L AB17, [id number] ####Automation Technician: JAZLYN JIMENEZ ([id number])[facility])[address] [place] [address] Bilirubin [Mass/Vol] 0.2 mg/dL Normal <1.2 [facility] Comment on above: Performed By: #### L AB17, [id number] ####Automation Technician: JAZLYN JIMENEZ ([id number])[facility])[address] [place] [address] Calcium [Mass/Vol] 10.0 mg/dL Normal 8.4-10.2 [facility] Comment on above: Performed By: #### L AB17, [id number] ####Automation Technician: JAZLYN JIMENEZ ([id number])[facility])[address] [place] [address] Chloride [Moles/Vol] 110 mmol/L High 98-107 [facility] Comment on above: Performed By: #### L AB17, [id number] ####Automation Technician: JAZLYN JIMENEZ ([id number])[facility])[address] [place] [address] CO2 [Moles/Vol] 23 mmol/L Normal 22-29 [facility] Comment on above: Performed By: #### L AB17, [id number] ####Automation Technician: JAZLYN JIMENEZ ([id number])[facility])[address] [place] [address] Creatinine [Mass/Vol] 1.19 mg/dL Normal 0.72-1.25 [facility] Comment on above: Performed By: #### L AB17, [id number] ####Automation Technician: JAZLYN JIMENEZ ([id number])[facility])[address] [place] [address] GLOMERULAR FILTRATION RATE ML/MIN/1.73 SQ M.PREDICTED 74.0 mL/min/1.73m*2 Normal >60.0 [facility] Comment on above: Result Comment: Calc ulation based on the Chronic Kidney Disease Epidemiology Collaboration (CKD-EPI) equation refit without adjustment for race Performed By: #### L AB17, [id number] ####Automation Technician: JAZLYN JIMENEZ ([id number])[facility])[address] [place] [address] Glucose [Mass/Vol] 92 mg/dL Normal 74-100 [facility] Comment on above: Performed By: #### L AB17, [id number] ####Automation Technician: JAZLYN JIMENEZ ([id number])[facility])[address] [place] [address] Potassium [Moles/Vol] 4.3 mmol/L Normal 3.5-5.1 [facility] Comment on above: Result Comment: [facility] potassium values may be up to 0.5 mmol/L lower than serum values. Performed By: #### L AB17, [id number] ####Automation Technician: JAZLYN JIMENEZ ([id number])[facility])[address] [place] [address] Protein [Mass/Vol] 7.4 g/dL Normal 6.4-8.3 [facility] Comment on above: Performed By: #### L AB17, [id number] ####Automation Technician: JAZLYN JIMENEZ ([id number])[facility])[address] [place] [address] Sodium [Moles/Vol] 141 mmol/L Normal 136-145 [facility] Comment on above: Performed By: #### L AB17, [id number] ####Automation Technician: JAZLYN JIMENEZ ([id number])[facility])[address] [place] [address] [place] Urea nitrogen [Mass/Vol] 15 mg/dL Normal 9-23 [facility] Comment on above: Performed By: #### L AB17, [id number] ####Automation Technician: JAZLYN JIMENEZ ([id number])[facility])[address] [place] [address] [place] CRP [Mass/Vol]Ordered By: Dave Churchill on 12-06-2024 Interpretation and review of laboratory results Abnormal [facility] CT PELVIS W IV CONTRASTon CT PELVIS [...] on our table best imaging possible Normal [facility] CT Pelvis W contrast Mp [...] Electronically Signed Date/Time: 12/06/2024 1:29 PM EDT [facility] Patient Name: KEVAN LA [...] Probable few small bladder diverticula present, posteriorly. [facility] Tess Carter MD - 12/06/2024 Patient [...] Electronically Signed Date/Time: 12/06/2024 1:29 PM EDT [facility] Radiology Study observation (narrative) [facility] CT Pelvis W contrast IVOrder ed By: Tess Carter on 12-06-2024 [facility] Work Phone: CULTURE ANAEROBICon 12-07-19 25 CULTURE ANAEROBIC ANAEROBIC CULTURE Reference Mixed aerobic and anaerobic bacteria present. BACTEROIDES FRAGILIS GROUP Few Bacteroides fragilis group (A) [ S = SUSCEPTIBLE R = RESISTANT I = INTERMEDIATE S-DD = Susceptible-dose dependent NS = Non-susceptible NO = No Interpretation ] Normal [facility] Comment on above: Performed By: #### L [id number] #### Automation Technician: JAZLYN JIMENEZ ([id number]) [facility] ([facility]) [address] [place] [address] CULTURE, AEROBIC BACTERIA WI TH GRAM STAINon 12-06-2024 CULTURE, AEROBIC BACTERIA WITH GRAM STAIN CULTURE Reference Moderate enteric phil present GRAM STAIN RESULT (A) Reference (A) Few Polymorphonuclear leukocytes per low power field Rare Gram negative bacilli [ S = SUSCEPTIBLE R = RESISTANT I = INTERMEDIATE S-DD = Susceptible-dose dependent NS = Non-susceptible NO = No Interpretation ] Normal [facility] Comment on above: Performed By: #### L [id number], [id number] #### Automation Technician: JAZLYN JIMENEZ ([id number]) [facility] ([facility]) [address] [place] [address] Comprehensive metabolic 1998 panelon 12-06-2024 Albumin [Mass/Vol] 2.7 g/dL Low 3.5 - 5.0 g/dL [facility] ALP [Catalytic activity/Vol] 63 U/L 40 - 150 U/L [facility] ALT [Catalytic activity/Vol] 7 U/L NINF - 40 U/L [facility] Anion gap [Moles/Vol] 8 mmol/L 3 - 13 mmol/L [facility] AST [Catalytic activity/Vol] 17 U/L NINF - 34 U/L [facility] Bilirubin [Mass/Vol] 0.2 mg/dL NINF - 1.2 mg/dL [facility] Calcium [Mass/Vol] 10 mg/dL 8.4 - 10. 2 mg/dL [facility] Chloride [Moles/Vol] 110 mmol/L High 98 - 10 7 mmol/L [facility] CO2 [Moles/Vol] 23 mmol/L 22 - 29 mmol/L [facility] Creatinine [Mass/Vol] 1.19 mg/dL 0.72 - 1.25 mg/dL [facility] GFR/1.73 sq M.predicted (S/P/Bld) [Vol rate/Area] 74 mL/min - PINF [facility] Comment on above: Calculation based on the Chronic Kidney Disease Epidemiology Collaboration (CKD-EPI) equation refit without adjustment for race Glucose [Mass/Vol] 92 mg/dL 74 - 100 mg/dL [facility] Interpretation and review of laboratory results Abnormal [facility] Potassium [Moles/Vol] 4.3 mmol/L 3.5 - 5.1 mmol/L [facility] Comment on above: Plasma potassium jeri ues may be up to 0.5 mmol/L lower than serum values. Protein [Mass/Vol] 7.4 g/dL 6.4 - 8.3 g/dL [facility] Sodium [Moles/Vol] 141 mmol/L 136 - 145 mmol/L [facility] Urea nitrogen [Mass/Vol] 15 mg/dL 9 - 23 mg/dL [facility] ECG 12-LEADon 12-06-2024 ECG 12-LEAD IMPRESSION: Sinus bradycardia Electronically Signed On 12-06-2024 11:47:13 EDT by Fer Hollins [facility] ED Nursing Noteon 12-06-2024 ED Nursing Note Assume care of pt fr china Sutton RN for lunch coverage [facility] ED Nursing Note Patient requested sallie andrea to place under right hip/leg for comfort. States he got a text message from that he can "early check in" and questioned if transfer was arranged. This nurse advised patient unknown at this time. [facility] ED Nursing Note Pt to CT [facility] ED Nursing Note This RN attempted to obtain another IV access and blood cultures but was unsuccessful [facility] ED Nursing Note Report to AMAN Pittman. [facility] ED Nursing Note Pt presents to ED vi a EMS from an assisted living facility with c/o a seeping ulcer. EMS reports this has been an ongoing issue. Pt states he is only ambulatory for short distances. Pt is A&Ox4. Normal [facility] ED Provider Noteon ED Provider Note Emergency Department Encounter [facility] Patient: Kevan La : 1975 [...] for clarification.) Fer Hollins MD Acute Care [facility] Fer Hollins MD 12/06/24 1120 [facility] ED Provider Note Emergency Department Encounter Location: [facility] Patient: Kevan La : 1975 Date of evaluation: 12/06/2024 ED Provider: Rogelio Wilkinson DO Time received sign-out: [id number] Kevan La was checked out to me [...] 397 ms QTC Interval 390 ms P [place] 44 degrees QRS [place] 55 degrees T Wave [place] 56 degrees [place] Interval 142 ms Blood culture Site #1 [...] signout was to transfer the patient to [facility] for further management of his gluteal abscess (more content not included)... Normal [facility] ED Provider Note EMERGENCY DEPARTMENT [...] months and recently had it drained at [facility]. He expresses concern for increasing pain, drainage [...] nausea or vomiting., Starting 11/09/2024, No Print piperacillin-tazobactam (Zosyn) IVPB 3.375 g in 50 [...] Received from [facility] Overall Financial Resource Strain (CARDIA) Difficulty of Paying Living Expenses: Somewhat hard Food Insecurity: No Food Insecurity (12/07/2024) Received from [facility] Hunger Vital Sign Worried About Running Out of Food in the Last Year: Never true Ran Out of Food in the Last Year: Never true Recent Concern: Food Insecurity - Food Insecurity Present (10/11/2024) Received from [facility] Hunger Vital Sign Worried About Running Out of Food in the Last Year: Sometimes true Ran Out of Food in the Last Year: Sometimes true Transportation Needs: No Transportation Needs (12/07/2024) Received from [facility] PRAPARE - Transportation Lack of Transportation (Medical): No Lack of Transportation (Non-Medical): No Intimate Partner Violence: Not At Risk (12/07/2024) Received from [facility] Humiliation, Afraid, Rape, and Kick questionnaire Fear of Current or Ex-Partner: No Emotionally Abused: No Physically Abused: No Sexually Abused: No Housing Stability: High Risk (12/07/2024) Received from [facility] Housing Stability Vital Sign Unable to Pay for Housing in the Last Year: Yes Number of Times Moved in the Last Year: 1 Homeless in the Last Year: No SCREENINGS Kofi Coma Scale Best Eye Response: Spontaneous Best Verbal Response: Oriented Best Motor Response: Follows commands Clark Coma Scale Score: 15 PHYSICAL EXAM ED [...] Result Impression: (more content not included)... Normal [facility] ED Provider Note I was signed out thi s patient by the outgoing provider. I was [...] Fer Hull MD Resident 12/08/24 0656 Normal [facility] ESR (Bld) [Velocity]Ordered By: Philly Lal on 12-06-2024 Interpretation and review of laboratory results Abnormal [facility] Laboratory - Chemistry and C hemistry - challengeOrdered By: Oneida Churchill on 12-06-2024 CRP [Mass/Vol] 95.9 mg/L High NINF - 5.0 mg/L [facility] Laboratory - Hematology and Cell countsOrdered By: Philly Lal on 12-06-2024 ESR (Bld) [Velocity] 73 mm/h High [facility] No Panel Informationon 12-06 P [place] 44 degrees [facility] [place] Interval 142 ms [facility] QRS [place] 55 degrees [facility] QRSD Interval 94 ms [facility] QT Interval 397 ms [facility] QTC Interval 390 ms [facility] T Wave [place] 56 degrees [facility] Sinus bradycardia Electronically Signed On 12-06-2024 11:47:13 EDT by Fer Vick MD - 12/06/2024 IMPRESSION: Sinus bradycardia Electronically Signed On 12-06-2024 11:47:13 EDT by Fer Hollins [facility] Progress Noteon 12-06-2024 Progress Note Culture result revie wed. No further treatment needed. Normal [facility] SEDIMENTATION RATE, AUTOMATE Don 12-06-2024 SEDIMENTATION RATE, ERYTHROCYTE 73 mm/hr High 0-10 [facility] Comment on above: Performed By: #### L [id number], [id number] ####Automation Technician: JAZLYN JIMENEZ ([id number])[facility] [place] [address] Urinalysis complete panel (U )on 12-06-2024 Bilirubin Ql (U) Negative Negative mg/dL [facility] Clarity (U) Clear Clear [facility] Color (U) Light Yellow Lt. Yellow [facility] Glucose Ql (U) Normal Normal (<70) mg/dL [facility] Hemoglobin Ql (U) Negative Negative mg/dL [facility] Interpretation and review of laboratory results Normal [facility] Ketones (U) [Mass/Vol] Negative Negat sulema mg/dL [facility] Leukocyte esterase Test strip Ql (U) Negative Negative Gabe/uL [facility] Nitrite Ql (U) Negative Negative [facility] pH (U) 5.5 [pH] 5.0 - 8.0 pH [facility] Protein (U) [Mass/Vol] Negative Negat sulema mg/dL [facility] Specific gravity (U) [Rel density] 1.016 1.005 - 1.030 [facility] Urobilinogen (U) [Mass/Vol] Normal Normal (0-1) mg/dL [facility] Vital signson 12-06-2024 Heart rate 58 /min bpm [facility] Anion gap in Serum or Plasma Ordered By: Julio Nolasco on 12-04-2024 Anion gap [Moles/Vol] 11 mmol/L 5-15 [facility] BUN/creatinine ratioOrdered By: Julio Nolasco on 12-04-2024 Urea nitrogen/Creatinine [Mass ratio] 11.5 mg/mg 10- [facility] Carbon dioxide, total [Moles /volume] in Central venous bloodOrdered By: Julio Nolasco on 12-04-2024 CO2 [Moles/Vol] 23.5 mmol/L 21.0-32.0 [facility] Chloride assayOrdered By: Antwon Nloasco on 12-04-2024 Chloride [Moles/Vol] 104 mmol/L 98-108 [facility] GFR/1.73 sq M.predicted yobany g non-blacks MDRD (S/P/Bld) [Vol rate/Area]Ordered By: Julio Noalsco on 12-04-2024 Estimated GFR (MDRD) Non-Af Amer 65 >60 [facility] Comment on above: mL/min/1.73m2 CKD-EP I Creatinine Equation (2020) Potassium (Unsp spec) [Mass/ Vol]Ordered By: Julio Nolasco on 12-04-2024 Potassium [Moles/Vol] 4.3 mmol/L 3.3-5.1 [facility] Serum creatinine measurement (mass/volume)Ordered By: Julio Nolasco on 12-04-2024 Creatinine [Mass/Vol] 1.32 mg/dL High 0.70-1.20 [facility] Serum glucose measurement (m ass/volume)Ordered By: Julio Nolasco on 12-04-2024 Glucose [Mass/Vol] 105 mg/dL High 70-99 [facility] Serum or plasma calcium mervat urement (mass/volume)Ordered By: Julio Nolasco on 12-04-2024 Calcium [Mass/Vol] 10.7 mg/dL 7.6-11.0 [facility] Serum or plasma urea nitroge n measurement (mass/volume)Ordered By: Julio Nolasco on 12-04-2024 Urea nitrogen [Mass/Vol] 15 mg/dL 4-19 [facility] Sodium levelOrdered By: William Nolasco on 12-04-2024 Sodium [Moles/Vol] 139 mmol/L 133-145 [facility] CBC W Auto Differential pane l (Bld)on 11-27-2024 Basophils (Bld) [#/Vol] 0.09 10*3/uL [facility] Basophils/100 WBC (Bld) 0.7 % 0.0 - 2.0 % [facility] Eosinophils (Bld) [#/Vol] 0.58 10*3/uL [facility] Eosinophils/100 WBC (Bld) 4.7 % 0.0 - 6.0 % [facility] Erythrocyte distribution width (RBC) [Ratio] 16.4 % High 11.5 - 14.5 % [facility] Hematocrit (Bld) [Volume fraction] 25 % Low 41.0 - 52.0 % [facility] Hemoglobin (Bld) [Mass/Vol] 7.9 g/dL Low 13.5 - 17.5 g/dL [facility] Immature granulocytes (Bld) [#/Vol] 0.04 10*3/uL [facility] Immature granulocytes/100 WBC (Bld) 0.3 % 0.0 - 0.9 % [facility] Interpretation and review of laboratory results Abnormal [facility] Lymphocytes (Bld) [#/Vol] 1.78 10*3/uL [facility] Lymphocytes/100 WBC (Bld) 14.5 % 13.0 - 44.0 % [facility] MCH (RBC) [Entitic mass] 26.7 pg 26.0 - 34.0 pg [facility] MCHC (RBC) [Mass/Vol] 31.6 g/dL Low 32.0 - 36.0 g/dL [facility] MCV (RBC) [Entitic vol] 85 fL 80 - 100 fL [facility] Monocytes (Bld) [#/Vol] 0.92 10*3/uL [facility] Monocytes/100 WBC (Bld) 7.5 % 2.0 - 10.0 % [facility] Neutrophils (Bld) [#/Vol] 8.88 10*3/uL High [facility] Neutrophils/100 WBC (Bld) 72.3 % 40.0 - 80.0 % [facility] Nucleated RBC/100 WBC (Bld) [Ratio] 0 % [facility] Platelets (Bld) [#/Vol] 715 10*3/uL High [facility] RBC (Bld) [#/Vol] 2.96 10*6/uL Low [facility] WBC (Bld) [#/Vol] 12.3 10*3/uL High [facility] Magnesiumon 11-27-2024 Magnesium [Mass/Vol] 1.75 mg/dL 1.60 - 2.40 mg/dL [facility] Magnesium [Mass/Vol]on 11-27 Interpretation and review of laboratory results Normal [facility] No Panel Informationon 11-27 [facility] Renal function 2000 panelon 11-27-2024 Albumin BCP dye [Mass/Vol] 3.2 g/dL Low 3.4 - 5.0 g/dL [facility] Anion gap [Moles/Vol] 14 mmol/L 10 - 2 0 mmol/L [facility] Calcium [Mass/Vol] 9.5 mg/dL 8.6 - 10. 6 mg/dL [facility] Chloride [Moles/Vol] 99 mmol/L 98 - 10 7 mmol/L [facility] CO2 [Moles/Vol] 27 mmol/L 21 - 32 mmol/L [facility] Creatinine [Mass/Vol] 1.38 mg/dL High 0.50 - 1.30 mg/dL [facility] GFR/1.73 sq M.predicted among non-blacks MDRD (S/P/Bld) [Vol rate/Area] 62 mL/min/{1.73_m2} - PINF [facility] Glucose [Mass/Vol] 139 mg/dL High 74 - 99 mg/dL [facility] Interpretation and review of laboratory results Abnormal [facility] Phosphate [Mass/Vol] 2.5 mg/dL 2.5 - 4 .9 mg/dL [facility] Potassium [Moles/Vol] 4 mmol/L 3.5 - 5.3 mmol/L [facility] Sodium [Moles/Vol] 136 mmol/L 136 - 145 mmol/L [facility] Urea nitrogen [Mass/Vol] 10 mg/dL 6 - 23 mg/dL [facility] Bacteria identified Cx Nom ( Bld)on 11-26-2024 Interpretation and review of laboratory results Normal [facility] CBC W Auto Differential pane l (Bld)on 11-26-2024 Basophils (Bld) [#/Vol] 0.1 10*3/uL [facility] Basophils/100 WBC (Bld) 0.8 % 0.0 - 2.0 % [facility] Eosinophils (Bld) [#/Vol] 0.51 10*3/uL [facility] Eosinophils/100 WBC (Bld) 4.2 % 0.0 - 6.0 % [facility] Erythrocyte distribution width (RBC) [Ratio] 16.2 % High 11.5 - 14.5 % [facility] Hematocrit (Bld) [Volume fraction] 26.6 % Low 41.0 - 52.0 % [facility] Hemoglobin (Bld) [Mass/Vol] 8.3 g/dL Low 13.5 - 17.5 g/dL [facility] Immature granulocytes (Bld) [#/Vol] 0.05 10*3/uL [facility] Immature granulocytes/100 WBC (Bld) 0.4 % 0.0 - 0.9 % [facility] Interpretation and review of laboratory results Abnormal [facility] Lymphocytes (Bld) [#/Vol] 1.6 10*3/uL [facility] Lymphocytes/100 WBC (Bld) 13.3 % 13.0 - 44.0 % [facility] MCH (RBC) [Entitic mass] 26.4 pg 26.0 - 34.0 pg [facility] MCHC (RBC) [Mass/Vol] 31.2 g/dL Low 32.0 - 36.0 g/dL [facility] MCV (RBC) [Entitic vol] 85 fL 80 - 100 fL [facility] Monocytes (Bld) [#/Vol] 1.2 10*3/uL High [facility] Monocytes/100 WBC (Bld) 9.9 % 2.0 - 10.0 % [facility] Neutrophils (Bld) [#/Vol] 8.61 10*3/uL High [facility] Neutrophils/100 WBC (Bld) 71.4 % 40.0 - 80.0 % [facility] Nucleated RBC/100 WBC (Bld) [Ratio] 0 % [facility] Platelets (Bld) [#/Vol] 780 10*3/uL [facility] RBC (Bld) [#/Vol] 3.14 10*6/uL Low [facility] WBC (Bld) [#/Vol] 12.1 10*3/uL [facility]. [facility] - Microbiology an d Antimicrobial susceptibilityon 11-26-2024 Bacteria identified Cx Nom (Bld) No growth at 4 days - FINAL REPORT [facility] Magnesiumon 11-26-2024 Magnesium [Mass/Vol] 2.07 mg/dL 1.60 - 2.40 mg/dL [facility] Magnesium [Mass/Vol]on 11-26 Interpretation and review of laboratory results Normal [facility] No Panel Informationon 11-26 [facility] Renal function 2000 panelon 11-26-2024 Albumin BCP dye [Mass/Vol] 3.4 g/dL 3.4 - 5.0 g/dL [facility] Anion gap [Moles/Vol] 17 mmol/L 10 - 2 0 mmol/L [facility] Calcium [Mass/Vol] 9.2 mg/dL 8.6 - 10. 6 mg/dL [facility] Chloride [Moles/Vol] 101 mmol/L 98 - 10 7 mmol/L [facility] CO2 [Moles/Vol] 24 mmol/L 21 - 32 mmol/L [facility] Creatinine [Mass/Vol] 1.22 mg/dL 0.50 - 1.30 mg/dL [facility] GFR/1.73 sq M.predicted among non-blacks MDRD (S/P/Bld) [Vol rate/Area] 72 mL/min/{1.73_m2} - PINF [facility] Glucose [Mass/Vol] 110 mg/dL High 74 - 99 mg/dL [facility] Interpretation and review of laboratory results Abnormal [facility] Phosphate [Mass/Vol] 2.9 mg/dL 2.5 - 4 .9 mg/dL [facility] Potassium [Moles/Vol] 4.4 mmol/L 3.5 - 5.3 mmol/L [facility] Sodium [Moles/Vol] 138 mmol/L 136 - 145 mmol/L [facility] Urea nitrogen [Mass/Vol] 10 mg/dL 6 - 23 mg/dL [facility] Bacteria identified Cx Nom ( Unsp spec)on 11-25-2024 Interpretation and review of laboratory results Abnormal [facility] Work Phone: Microscopic observation Gram stain Nom (Unsp spec) (1+) Rare Polymorphonuclear leukocytes Abnormal [facility] Work Phone: Microscopic observation Gram stain Nom (Unsp spec) (4+) Abundant Mixed Gram positive and Gram negative bacteria Abnormal [facility] Work Phone: [facility] Work Phone: CBC W Auto Differential pane l (Bld)on 11-25-2024 Basophils (Bld) [#/Vol] 0.08 10*3/uL [facility] Basophils/100 WBC (Bld) 0.8 % 0.0 - 2.0 % [facility] Eosinophils (Bld) [#/Vol] 0.49 10*3/uL [facility] Eosinophils/100 WBC (Bld) 5.2 % 0.0 - 6.0 % [facility] Erythrocyte distribution width (RBC) [Ratio] 16.5 % High 11.5 - 14.5 % [facility] Hematocrit (Bld) [Volume fraction] 26.3 % Low 41.0 - 52.0 % [facility] Hemoglobin (Bld) [Mass/Vol] 8.1 g/dL Low 13.5 - 17.5 g/dL [facility] Immature granulocytes (Bld) [#/Vol] 0.03 10*3/uL [facility] Immature granulocytes/100 WBC (Bld) 0.3 % 0.0 - 0.9 % [facility] Interpretation and review of laboratory results Abnormal [facility] Lymphocytes (Bld) [#/Vol] 1.75 10*3/uL [facility] Lymphocytes/100 WBC (Bld) 18.5 % 13.0 - 44.0 % [facility] MCH (RBC) [Entitic mass] 26.5 pg 26.0 - 34.0 pg [facility] MCHC (RBC) [Mass/Vol] 30.8 g/dL Low 32.0 - 36.0 g/dL [facility] MCV (RBC) [Entitic vol] 86 fL 80 - 100 fL [facility] Monocytes (Bld) [#/Vol] 1.08 10*3/uL High [facility] Monocytes/100 WBC (Bld) 11.4 % 2.0 - 10.0 % [facility] Neutrophils (Bld) [#/Vol] 6.01 10*3/uL [facility] Neutrophils/100 WBC (Bld) 63.8 % 40.0 - 80.0 % [facility] Nucleated RBC/100 WBC (Bld) [Ratio] 0 % [facility] Platelets (Bld) [#/Vol] 747 10*3/uL High [facility] RBC (Bld) [#/Vol] 3.06 10*6/uL Low [facility] WBC (Bld) [#/Vol] 9.4 10*3/uL [facility] Magnesiumon 11-25-2024 Magnesium [Mass/Vol] 1.95 mg/dL 1.60 - 2.40 mg/dL [facility] Magnesium [Mass/Vol]on 11-25 Interpretation and review of laboratory results Normal [facility] No Panel Informationon 11-25 [facility] Renal function 2000 panelon 11-25-2024 Albumin BCP dye [Mass/Vol] 3.1 g/dL Low 3.4 - 5.0 g/dL [facility] Anion gap [Moles/Vol] 14 mmol/L 10 - 2 0 mmol/L [facility] Calcium [Mass/Vol] 9 mg/dL 8.6 - 10. 6 mg/dL [facility] Chloride [Moles/Vol] 100 mmol/L 98 - 10 7 mmol/L [facility] CO2 [Moles/Vol] 27 mmol/L 21 - 32 mmol/L [facility] Creatinine [Mass/Vol] 1.29 mg/dL 0.50 - 1.30 mg/dL [facility] GFR/1.73 sq M.predicted among non-blacks MDRD (S/P/Bld) [Vol rate/Area] 67 mL/min/{1.73_m2} - PINF [facility] Glucose [Mass/Vol] 101 mg/dL High 74 - 99 mg/dL [facility] Interpretation and review of laboratory results Abnormal [facility] Phosphate [Mass/Vol] 2.7 mg/dL 2.5 - 4 .9 mg/dL [facility] Potassium [Moles/Vol] 3.6 mmol/L 3.5 - 5.3 mmol/L [facility] Sodium [Moles/Vol] 137 mmol/L 136 - 145 mmol/L [facility] Urea nitrogen [Mass/Vol] 10 mg/dL 6 - 23 mg/dL [facility] Tissue/Wound Culture/Smearon 11-25-2024 Bacteria identified Cx Nom (Unsp spec) (4+) Abundant Mixed Gram-Positive and Gram-Negative Bacteria [facility] Work Phone: Bacteria identified Cx Nom ( Unsp spec)on 11-24-2024 Beta lactamase organism identified Nom (Isol) Positive [facility] Work Phone: Interpretation and review of laboratory results Abnormal [facility] Work Phone: Microscopic observation Gram stain Nom (Unsp spec) (3+) Moderate Polymorphonuclear leukocytes Abnormal [facility] Work Phone: Microscopic observation Gram stain Nom (Unsp spec) Negative Abnormal [facility] Work Phone: [facility] Work Phone: Bacteria identified Cx Nom ( Unsp spec)Ordered By: Mari Monique on 11-24-2024 Interpretation and review of laboratory results Abnormal [facility] Microscopic observation Gram stain Nom (Unsp spec) No polymorphonuclear leukocytes seen Abnormal [facility] Microscopic observation Gram stain Nom (Unsp spec) (4+) Abundant Mixed Gram positive and Gram negative bacteria Abnormal [facility] CBC W Auto Differential pane l (Bld)on 11-24-2024 Basophils (Bld) [#/Vol] 0.1 10*3/uL [facility] Basophils/100 WBC (Bld) 0.9 % 0.0 - 2.0 % [facility] Eosinophils (Bld) [#/Vol] 0.52 10*3/uL [facility] Eosinophils/100 WBC (Bld) 4.9 % 0.0 - 6.0 % [facility] Erythrocyte distribution width (RBC) [Ratio] 16.1 % High 11.5 - 14.5 % [facility] Hematocrit (Bld) [Volume fraction] 28.6 % Low 41.0 - 52.0 % [facility] Hemoglobin (Bld) [Mass/Vol] 8.7 g/dL Low 13.5 - 17.5 g/dL [facility] Immature granulocytes (Bld) [#/Vol] 0.03 10*3/uL [facility] Immature granulocytes/100 WBC (Bld) 0.3 % 0.0 - 0.9 % [facility] Interpretation and review of laboratory results Abnormal [facility] Lymphocytes (Bld) [#/Vol] 1.84 10*3/uL [facility] Lymphocytes/100 WBC (Bld) 17.2 % 13.0 - 44.0 % [facility] MCH (RBC) [Entitic mass] 26.4 pg 26.0 - 34.0 pg [facility] MCHC (RBC) [Mass/Vol] 30.4 g/dL Low 32.0 - 36.0 g/dL [facility] MCV (RBC) [Entitic vol] 87 fL 80 - 100 fL [facility] Monocytes (Bld) [#/Vol] 1.11 10*3/uL High [facility] Monocytes/100 WBC (Bld) 10.4 % 2.0 - 10.0 % [facility] Neutrophils (Bld) [#/Vol] 7.12 10*3/uL [facility] Neutrophils/100 WBC (Bld) 66.3 % 40.0 - 80.0 % [facility] Nucleated RBC/100 WBC (Bld) [Ratio] 0 % [facility] Platelets (Bld) [#/Vol] 818 10*3/uL High [facility] RBC (Bld) [#/Vol] 3.29 10*6/uL Low [facility] WBC (Bld) [#/Vol] 10.7 10*3/uL [facility] Magnesiumon 11-24-2024 Magnesium [Mass/Vol] 1.88 mg/dL 1.60 - 2.40 mg/dL [facility] Magnesium [Mass/Vol]on 11-24 Interpretation and review of laboratory results Normal [facility] No Panel Informationon 11-24 [facility] Renal function 2000 panelon 11-24-2024 Albumin BCP dye [Mass/Vol] 3.2 g/dL Low 3.4 - 5.0 g/dL [facility] Anion gap [Moles/Vol] 11 mmol/L 10 - 2 0 mmol/L [facility] Calcium [Mass/Vol] 9.1 mg/dL 8.6 - 10. 6 mg/dL [facility] Chloride [Moles/Vol] 99 mmol/L 98 - 10 7 mmol/L [facility] CO2 [Moles/Vol] 30 mmol/L 21 - 32 mmol/L [facility] Creatinine [Mass/Vol] 1.38 mg/dL High 0.50 - 1.30 mg/dL [facility] GFR/1.73 sq M.predicted among non-blacks MDRD (S/P/Bld) [Vol rate/Area] 62 mL/min/{1.73_m2} - PINF [facility] Glucose [Mass/Vol] 109 mg/dL High 74 - 99 mg/dL [facility] Interpretation and review of laboratory results Abnormal [facility] Phosphate [Mass/Vol] 3.3 mg/dL 2.5 - 4 .9 mg/dL [facility] Potassium [Moles/Vol] 3.8 mmol/L 3.5 - 5.3 mmol/L [facility] Sodium [Moles/Vol] 136 mmol/L 136 - 145 mmol/L [facility] Urea nitrogen [Mass/Vol] 15 mg/dL 6 - 23 mg/dL [facility] Tissue/Wound Culture/Smearon 11-24-2024 Bacteria identified Cx Nom (Unsp spec) Negative [facility] Work Phone: Bacteria identified Cx Nom (Unsp spec) (4+) Abundant Mixed Anaerobic Bacteria [facility] Work Phone: Tissue/Wound Culture/SmearOr dered By: Mari Monique on 11-24-2024 Bacteria identified Cx Nom (Unsp spec) (4+) Abundant Mixed Gram-Positive and Gram-Negative Bacteria [facility] CBC W Auto Differential pane l (Bld)on 11-23-2024 Basophils (Bld) [#/Vol] 0.11 10*3/uL High [facility] Basophils/100 WBC (Bld) 0.8 % 0.0 - 2.0 % [facility] Eosinophils (Bld) [#/Vol] 0.5 10*3/uL [facility] Eosinophils/100 WBC (Bld) 3.5 % 0.0 - 6.0 % [facility] Erythrocyte distribution width (RBC) [Ratio] 16.3 % High 11.5 - 14.5 % [facility] Hematocrit (Bld) [Volume fraction] 30.1 % Low 41.0 - 52.0 % [facility] Hemoglobin (Bld) [Mass/Vol] 9.4 g/dL Low 13.5 - 17.5 g/dL [facility] Immature granulocytes (Bld) [#/Vol] 0.08 10*3/uL [facility] Immature granulocytes/100 WBC (Bld) 0.6 % 0.0 - 0.9 % [facility] Interpretation and review of laboratory results Abnormal [facility] Lymphocytes (Bld) [#/Vol] 1.65 10*3/uL [facility] Lymphocytes/100 WBC (Bld) 11.5 % 13.0 - 44.0 % [facility] MCH (RBC) [Entitic mass] 26.8 pg 26.0 - 34.0 pg [facility] MCHC (RBC) [Mass/Vol] 31.2 g/dL Low 32.0 - 36.0 g/dL [facility] MCV (RBC) [Entitic vol] 86 fL 80 - 100 fL [facility] Monocytes (Bld) [#/Vol] 1.59 10*3/uL High [facility] Monocytes/100 WBC (Bld) 11.1 % 2.0 - 10.0 % [facility] Neutrophils (Bld) [#/Vol] 10.38 10*3/uL High [facility] Neutrophils/100 WBC (Bld) 72.5 % 40.0 - 80.0 % [facility] Nucleated RBC/100 WBC (Bld) [Ratio] 0 % [facility] Platelets (Bld) [#/Vol] 844 10*3/uL High [facility] RBC (Bld) [#/Vol] 3.51 10*6/uL Low [facility] WBC (Bld) [#/Vol] 14.3 10*3/uL High [facility] Magnesiumon 11-23-2024 Magnesium [Mass/Vol] 1.94 mg/dL 1.60 - 2.40 mg/dL [facility] Magnesium [Mass/Vol]on 11-23 Interpretation and review of laboratory results Normal [facility] No Panel Informationon 11-23 [facility] Renal function 2000 panelon 11-23-2024 Albumin BCP dye [Mass/Vol] 3.4 g/dL 3.4 - 5.0 g/dL [facility] Anion gap [Moles/Vol] 15 mmol/L 10 - 2 0 mmol/L [facility] Calcium [Mass/Vol] 9.3 mg/dL 8.6 - 10. 6 mg/dL [facility] Chloride [Moles/Vol] 99 mmol/L 98 - 10 7 mmol/L [facility] CO2 [Moles/Vol] 25 mmol/L 21 - 32 mmol/L [facility] Creatinine [Mass/Vol] 1.36 mg/dL High 0.50 - 1.30 mg/dL [facility] GFR/1.73 sq M.predicted among non-blacks MDRD (S/P/Bld) [Vol rate/Area] 63 mL/min/{1.73_m2} - PINF [facility] Glucose [Mass/Vol] 101 mg/dL High 74 - 99 mg/dL [facility] Interpretation and review of laboratory results Abnormal [facility] Phosphate [Mass/Vol] 3 mg/dL 2.5 - 4 .9 mg/dL [facility] Potassium [Moles/Vol] 4 mmol/L 3.5 - 5.3 mmol/L [facility] Sodium [Moles/Vol] 135 mmol/L Low 136 - 145 mmol/L [facility] Urea nitrogen [Mass/Vol] 14 mg/dL 6 - 23 mg/dL [facility] CBC W Auto Differential pane l (Bld)on 11-22-2024 Basophils (Bld) [#/Vol] 0.09 10*3/uL [facility] Basophils/100 WBC (Bld) 0.7 % 0.0 - 2.0 % [facility] Eosinophils (Bld) [#/Vol] 0.36 10*3/uL [facility] Eosinophils/100 WBC (Bld) 2.7 % 0.0 - 6.0 % [facility] Erythrocyte distribution width (RBC) [Ratio] 16 % High 11.5 - 14.5 % [facility] Hematocrit (Bld) [Volume fraction] 27.8 % Low 41.0 - 52.0 % [facility] Hemoglobin (Bld) [Mass/Vol] 8.7 g/dL Low 13.5 - 17.5 g/dL [facility] Immature granulocytes (Bld) [#/Vol] 0.04 10*3/uL [facility] Immature granulocytes/100 WBC (Bld) 0.3 % 0.0 - 0.9 % [facility] Interpretation and review of laboratory results Abnormal [facility] Lymphocytes (Bld) [#/Vol] 1.44 10*3/uL [facility] Lymphocytes/100 WBC (Bld) 10.7 % 13.0 - 44.0 % [facility] MCH (RBC) [Entitic mass] 26.9 pg 26.0 - 34.0 pg [facility] MCHC (RBC) [Mass/Vol] 31.3 g/dL Low 32.0 - 36.0 g/dL [facility] MCV (RBC) [Entitic vol] 86 fL 80 - 100 fL [facility] Monocytes (Bld) [#/Vol] 1.28 10*3/uL High [facility] Monocytes/100 WBC (Bld) 9.5 % 2.0 - 10.0 % [facility] Neutrophils (Bld) [#/Vol] 10.28 10*3/uL High [facility] Neutrophils/100 WBC (Bld) 76.1 % 40.0 - 80.0 % [facility] Nucleated RBC/100 WBC (Bld) [Ratio] 0 % [facility] Platelets (Bld) [#/Vol] 780 10*3/uL High [facility] RBC (Bld) [#/Vol] 3.24 10*6/uL [facility] (Bld[facility] [#/Vol] 13.5 10*3/uL High [facility] Magnesiumon 11-22-2024 Magnesium [Mass/Vol] 2 mg/dL 1.60 - 2.40 mg/dL [facility] Magnesium [Mass/Vol]on 11-22 Interpretation and review of laboratory results Normal [facility] No Panel Informationon 11-22 [facility] Renal function 2000 panelon 11-22-2024 Albumin BCP dye [Mass/Vol] 3.4 g/dL 3.4 - 5.0 g/dL [facility] Anion gap [Moles/Vol] 13 mmol/L 10 - 2 0 mmol/L [facility] Calcium [Mass/Vol] 9.3 mg/dL 8.6 - 10. 6 mg/dL [facility] Chloride [Moles/Vol] 100 mmol/L 98 - 10 7 mmol/L [facility] CO2 [Moles/Vol] 25 mmol/L 21 - 32 mmol/L [facility] Creatinine [Mass/Vol] 1.2 mg/dL 0.50 - 1.30 mg/dL [facility] GFR/1.73 sq M.predicted among non-blacks MDRD (S/P/Bld) [Vol rate/Area] 73 mL/min/{1.73_m2} - PINF [facility] Glucose [Mass/Vol] 105 mg/dL High 74 - 99 mg/dL [facility] Interpretation and review of laboratory results Abnormal [facility] Phosphate [Mass/Vol] 2.5 mg/dL 2.5 - 4 .9 mg/dL [facility] Potassium [Moles/Vol] 4.1 mmol/L 3.5 - 5.3 mmol/L [facility] Sodium [Moles/Vol] 134 mmol/L Low 136 - 145 mmol/L [facility] Urea nitrogen [Mass/Vol] 15 mg/dL 6 - 23 mg/dL [facility] CBC W Auto Differential pane l (Bld)on 11-21-2024 Basophils (Bld) [#/Vol] 0.09 10*3/uL [facility] Basophils/100 WBC (Bld) 0.7 % 0.0 - 2.0 % [facility] Eosinophils (Bld) [#/Vol] 0.38 10*3/uL [facility] Eosinophils/100 WBC (Bld) 3.1 % 0.0 - 6.0 % [facility] Erythrocyte distribution width (RBC) [Ratio] 16 % High 11.5 - 14.5 % [facility] Hematocrit (Bld) [Volume fraction] 26.9 % Low 41.0 - 52.0 % [facility] Hemoglobin (Bld) [Mass/Vol] 8.6 g/dL Low 13.5 - 17.5 g/dL [facility] Immature granulocytes (Bld) [#/Vol] 0.04 10*3/uL [facility] Immature granulocytes/100 WBC (Bld) 0.3 % 0.0 - 0.9 % [facility] Interpretation and review of laboratory results Abnormal [facility] Lymphocytes (Bld) [#/Vol] 1.38 10*3/uL [facility] Lymphocytes/100 WBC (Bld) 11.1 % 13.0 - 44.0 % [facility] MCH (RBC) [Entitic mass] 27.2 pg 26.0 - 34.0 pg [facility] MCHC (RBC) [Mass/Vol] 32 g/dL 32.0 - 36.0 g/dL [facility] MCV (RBC) [Entitic vol] 85 fL 80 - 100 fL [facility] Monocytes (Bld) [#/Vol] 1.2 10*3/uL High [facility] Monocytes/100 WBC (Bld) 9.7 % 2.0 - 10.0 % [facility] Neutrophils (Bld) [#/Vol] 9.33 10*3/uL High [facility] Neutrophils/100 WBC (Bld) 75.1 % 40.0 - 80.0 % [facility] Nucleated RBC/100 WBC (Bld) [Ratio] 0 % [facility] Platelets (Bld) [#/Vol] 745 10*3/uL High [facility] RBC (Bld) [#/Vol] 3.16 10*6/uL Low [facility] WBC (Bld) [#/Vol] 12.4 10*3/uL High [facility]/lambda free, serum; [facility]; [facility] - Miscellaneous TestOrdered By: Deborah Yuongblood on 11-21-2024 Scan Result See Scanned Result [facility] Magnesiumon 11-21-2024 Magnesium [Mass/Vol] 1.86 mg/dL 1.60 - 2.40 mg/dL [facility] Magnesium [Mass/Vol]on 11-21 Interpretation and review of laboratory results Normal [facility] No Panel Informationon 11-21 [facility] Renal function 2000 panelon 11-21-2024 Albumin BCP dye [Mass/Vol] 3.2 g/dL Low 3.4 - 5.0 g/dL [facility] Anion gap [Moles/Vol] 16 mmol/L 10 - 2 0 mmol/L [facility] Calcium [Mass/Vol] 9.3 mg/dL 8.6 - 10. 6 mg/dL [facility] Chloride [Moles/Vol] 102 mmol/L 98 - 10 7 mmol/L [facility] CO2 [Moles/Vol] 23 mmol/L 21 - 32 mmol/L [facility] Creatinine [Mass/Vol] 1.29 mg/dL 0.50 - 1.30 mg/dL [facility] GFR/1.73 sq M.predicted among non-blacks MDRD (S/P/Bld) [Vol rate/Area] 67 mL/min/{1.73_m2} - PINF [facility] Glucose [Mass/Vol] 96 mg/dL 74 - 99 mg/dL [facility] Interpretation and review of laboratory results Abnormal [facility] Phosphate [Mass/Vol] 2.7 mg/dL 2.5 - 4 .9 mg/dL [facility] Potassium [Moles/Vol] 4 mmol/L 3.5 - 5.3 mmol/L [facility] Sodium [Moles/Vol] 137 mmol/L 136 - 145 mmol/L [facility] Urea nitrogen [Mass/Vol] 14 mg/dL 6 - 23 mg/dL [facility] CBC W Auto Differential pane l (Bld)on 11-20-2024 Basophils (Bld) [#/Vol] 0.08 10*3/uL [facility] Basophils/100 WBC (Bld) 0.7 % 0.0 - 2.0 % [facility] Eosinophils (Bld) [#/Vol] 0.45 10*3/uL [facility] Eosinophils/100 WBC (Bld) 4 % 0.0 - 6.0 % [facility] Erythrocyte distribution width (RBC) [Ratio] 16.3 % High 11.5 - 14.5 % [facility] Hematocrit (Bld) [Volume fraction] 28.4 % Low 41.0 - 52.0 % [facility] Hemoglobin (Bld) [Mass/Vol] 8.6 g/dL Low 13.5 - 17.5 g/dL [facility] Immature granulocytes (Bld) [#/Vol] 0.05 10*3/uL [facility] Immature granulocytes/100 WBC (Bld) 0.4 % 0.0 - 0.9 % [facility] Interpretation and review of laboratory results Abnormal [facility] Lymphocytes (Bld) [#/Vol] 1.78 10*3/uL [facility] Lymphocytes/100 WBC (Bld) 15.6 % 13.0 - 44.0 % [facility] MCH (RBC) [Entitic mass] 26.9 pg 26.0 - 34.0 pg [facility] MCHC (RBC) [Mass/Vol] 30.3 g/dL Low 32.0 - 36.0 g/dL [facility] MCV (RBC) [Entitic vol] 89 fL 80 - 100 fL [facility] Monocytes (Bld) [#/Vol] 1.18 10*3/uL High [facility] Monocytes/100 WBC (Bld) 10.4 % 2.0 - 10.0 % [facility] Neutrophils (Bld) [#/Vol] 7.84 10*3/uL [facility] Neutrophils/100 WBC (Bld) 68.9 % 40.0 - 80.0 % [facility] Nucleated RBC/100 WBC (Bld) [Ratio] 0 % [facility] Platelets (Bld) [#/Vol] 771 10*3/uL [facility] RBC (Bld) [#/Vol] 3.2 10*6/uL [facility] WBC (Bld) [#/Vol] 11.4 10*3/uL [facility] Dermatopathology- DERM LABOr dered By: James Bustamante on 11-20-2024 Laboratory comment [facility] (Report) l3ostHOnHTSor8fcBUAqlFNkE zEwMzNcZnRuYmpcdWMxIHtccn OuSSojc2VfF4XdBbXwJPnvlnL wLGNeZdveqhbmKFWjUTC8nfVz IXHqYZbrOLPdSBpzWw2ftLBvb EktWkRqWVEom7ecofTUFYzqNG CSIHw6p1gbYFFrBwV0qRRdSHx iY2pwslKrkDBxK3Eto0YzDJm5 uB12FEHdsZ5owWEhLKeubbBdW lU3HHjzZTFfSrZ5PWLafXAsBA GwF1cpPJIkZEdgYJMtLBvskIX xCEJ8wXfbu9R6kCWfzZNjeIku QwFgHpRyUtPCg7ZtUSi2pRlcD 0YqHNRtWvG1kUXdGBTaDYanEZ TtWPIomjW9lN32ALqxvzQ1lYU gu4Bhd35qj903iD2vfZHxMPH6 ZRJtSHYgpCStDFClRYA2OEUcx TScU5pxXpPyfCOhO9FhHpCfrI HtR3YiPdVunIVqH4UtGjGgoYU kLCGgnDC2SHido906OST9OkLl SE7uW6Vvm8X9pG2nsTCxOJSgf KRzJwBfRLBzsi0rjXHjBYohg2 XqJBO7kkY9aTUytHBxHVIxFH7 8Fxntw2CzBwsyNHP0ECMqzlMy b5Tmi3ehIaGgtdKfI9qiX7DlZ DGzMNKfHITmMcCsucJwm0Itm0 TujEHkdIk5j8rsBPTwJBEvlZs du5fcSYC5HIHkR8B3uKAgi3jl GRxaHCOapPB9ntQ1IXkiWRSdz lR5kzH7JEvjKABppNQ4qnR1XL hyVQZvQzY4qfQ7UXleSKToUNZ 0JyIoPPRon0UfcqzbEcObv2Ui oHSqMKtcQ85xc089YCWruvTrN 1xwbGFpblxwbGFpblxmMFxmcz C1PMErSWKaUWwiIAXlLPMeJcX cbGFuZzEwMzNcaGljaFxmMVxk QmAzVTJeTZpiJ7vnLrPvKiAtZ KZIpYE1qLDdc0halaM2uVUdGF 4kUEBwpMGudtAhz2T7YYN6pEX wcX7klHMjHLBumAQgqqEtyo61 nZLkrBQ1IXCbONKdwFOwlY2lB OCvSCPMpX3paQNZghKpubYdGP UfcLqkgv1YeLVqwr3euIUuB1K ydGlmaWVzIHRoYXQgdGhleSBo WFEeJDPfroyyq4NcFRKsvSQbQ 3HrVH4hKKHoni60 [facility] Work Phone: Pathology report addendum [employer] (Spec) a8udgDSmQMTqbWYoBIkoKuqkf lQfRONkpCFtN9GtvmhnPYfrWJ 6zIY7djAppqYWgyRMlALRxCgI xv2bfs397jRLim9fuIZGOmscp wQh9dFfjL41jk2W7SwknS49nl YCtHUO8XAKoONFpcVGwNKRmRV M3HWVqeXFkR4vbZYKzDO3ggzn tNCwjEBhyNXSijFC8FQFolJFu S4YyPVGgPJvbWANwrkn9LaXuD q2eoUYxwMiuEUrySJYwBSIlOD usJUQrRaNrYLfMOqKQmNN1kQC gzvCckZCohJBzDwC1gKAjS4kv dhxkyDUrLFIqK52wQ47oOjKoZ WR5JQknPDwhciFiUCCuz5OvZW LiVH9jTQlnBV4cX6C1uHIzVTX cqgFssTwhg4jdGdWZdGcur4av p9BrtlSmYM5wg8RsDtDxKKstx DCkYOYnMHDuyGozJQ6mya9tgN B8DO7lMGDxCYGhxVGngT4saoT fmbNzxBBgqF86vrRyWCjsLNXx xkDthk7pDU2maYNkQLUgpv6= [facility] Work Phone: Pathology report Cancer Narrative [facility] Work Phone: Pathology report final diagnosis Narrative l9clxBYvEMAvcFPyRTeqBwuvc sJwKKZysNSwJ7JkkltnSQlhJA 3rBK2hkYllnMWtvDXcTPGrRqS bl7oha250eQNqg8stICJZvzps vCt0qHoiZ33me9N7FbzgM23vp UFmMEI5JCHkVGJzhEXrDJGlVJ R8MWBtuCOzD4lxAIPqSM0rwxo yNVieUIdoTXEkdPL1DZAzsANy C1ZxLFIfVBfhVSAbuzm4EvFiP l7xjHQzaItvOForGYApUSNzXZ poARSnRcUuUK8wF6lJFklwUGl DRVIgUFJPWElNQUwsIFBVTkNI NVRRT2PRAWjgyNAhSNKlVG5IA DBPQoReH5TVIE1AMPJxE5VLQE AOLTILBZ5BBHHzOBfrjo82GUH 3y5zpaJLnXCxmMrggpKLutnK0 PSkSCVIXVArQYgWqNF5xOMvOZ 5OIYWcAZoqsDXV2Z6vefYJ4p6 juyXUjg2s9GWdyCJL3vApTMDh 1QEStURcfa3eqNSAoYMefx5Qt QFvKSQRAWV5VQF5evMI8DIbGD SOMRUtmPQZ4A3zslMY6a5tmdD Hmj5w9CDtpFER1cKpjkUDqrel iXGZzMjAgIERJRkZFUkVOVElB VEVELCBccHJvdGVjdHtcZmllb QJ4IAiwCfhawC9xkCKNPYAKEf fGOeckddKkNW7WJVOKCnMUWW5 8Jnw9PTq4WwwuhVwsLivbqcYf rZMkMaBenY7EGxDYUY6SZC6WM YTGEKUGREDVUPwGIzAYIS9HRl sCDhghVbpmtIF1RKzgOibtmF5 chMINUCFEFonRBgotcjFzQP6C MEWPYP3ItVU8NMG6pHC9Rc61G FSjZBJuhVYdXBglG293QKDxZD noPKSjMcSxNCYqAQPVNJLAU7W SDqteXTCfdZWbXBIvNC7uuKA7 JK6xOAKtxTFdhs4lkMGkmHTgM 0mbHH51SWswGLDyUS8oKGKwuK SniLXkiJNpwOWukW06zdJdIRd eZSMobwLdnt1pIPNrkzTlKCOi cmVkIGFsdGhvdWdoIHRoZSBsY AImED4aYXTaeEXwzi2kyRTdgJ YgI4pgHP92KWDlkETqsqS1oMQ pfA2zi6qscJxxqTsrw9GbUVNi LEVmp3UplQsyCEYztRRbn3YpZ PYggFxzE6DmX3hcp29pKffgXR JccGFyZFxiXHBhclxiMCBCLiB GE2zHLOEJYXPIZhZFXXPTGBsf ECZROeKCTCUJW3ESNAbtjXVtC IZhTL8XCTFESfMoV6DEQS1SPS FgJ9HDQBXXEXNPKV6ORNFmBPy ztt40TPP0q0iwiKKtOMlpUypk mGRrelR3JXsTRMZBIQvOWdFcJ M4iHUkJF8MYWDzNJrmgSRY8Z3 uevQQ3c3xnkVPtz4k6VDjzFGP 6jKuPCXo8GRVdBJizx5fdIEMy KPxfl1GnYWjJNSJRKW7TTA9qx VN6BHkTDYSAWOvmTVG1T3ietJ I6y9wxcISvk4h3LDqnTSX3xWl tgGFkncedRVDoFtGbMALTOE4G RHZPDZORFRreUMaHQlIZGO7LX GWPDZWcSPruik51CKY3g2texM OdAGyeKyjqqTWeyqP6HEcCVGD CCOpWJhFkZF7zPIwFB8NITNpM RviqURffVKh9rXS0q2hnvIDmw 4n4UThsRBO7xQZFTNHXAjHnO0 6hTDwZZQEABKAjMG5TXFKTDpo GCAFSVDabMQGGK5xJg5ddiGPl UVaeMfukhWBxkdM0BHxBKXEFC BdPIcSiDD0kMYaTT2TGFnB8Ar d2JNa5ZCd5uAsfBhtlkpIpgIQ bGzXxhU9szWotwL3kWtgateYw TDjlT5QUGU1MYFWlOHKchgftO JHtSyLiXp82SYdqXv9xUOHsHO HuhTEcIJF4qMFgxA3jmgRhyYC gl1CaylPvxmIpCGUlDTGtl3Md hTcyLAIgmNZtl0JeZAQzsYwmN 3EzY6plz20sXXYhdj9xnDZuNE GwlAAkgFXtGS9cFBbcbtNklSF 5NPCmZACmFv2vACfqLPDbUHNw XqN8PIGpmPazftGmxfVad3iuu c2xgXIuBMDawhdmbIU8QQLtYx k4HfZgfPndFzu0AIzkOLnsFHV cXUH5ed8pgKZbcQp4LJDfM39g OTHtaWGoEimpT74kERJMp88yU SBNRCAqKlxwYXJcbGkwXGZpMF mpeB1gGQFbZMTmjoxcPXLhCLX osSBsDFBoO24BUcHTWHIRS75W GQEJADDAM7WDN5dZFGS2RYQpe XF8PQ9uVHswZVgxQFCcDpn2EZ P8Fj0gByK2ZQG6mCP2YgZGBYB LNDrLS7YfSENDHWCSLSLwDA6X KJlBJZGBGYDUE10HZEPXQYUXP 8DDA1jEZVgAENGFULVXR15GAB RCWAZFH0TJUOORVBGTMWvAKNP USb4QHUOOLWWGHV7FEBtRTbUz XWeAIHNVDQILYZGIWluyMBR3S 9m0Luv5LNOgzIEizUunZTEzwO 06Fdt6UEkztKAle6WVZz1EUDW TS0HIGxT3RSZvZE87DJhrXUYj wQO1iQ1kulxnzdhvUFfqCLp4J XAINXDSLJ3YYPIEM97HWQYASL ZSE7UQNDKLIgBCTGSFT22EYXW DSQHOC8GLM7rVEWCXLfZLMXMZ V11CSBIAIIYEM6QKBVENSKBJB iHQJiJJRE3TMJGRDATCZE6NHV sCDdAvUXYAL6SDSmTDD8enRBR VGLFNKLAqAK3EjQ== [facility] Work Phone: Pathology report gross observation Narrative f0ljfQCiFBCsuZZsWZtbXwyrp jZxSQNxwQYzV6HxgrlhURtfLF 8aFD2qoBygyZLlzOAjOJDvOqX gu0fin037kITnw1djPSVJimax rBq7aFfvV67po9Y6PqljQ70cd NCoGIF4YNTgQMJsyTDlCWWjCE B4KDTocSQzH4diJVRuDI9uxjz tSWtqNAadNXQccUB4FLCwvPXr P8YhIQFxHNffZQKvatr7AyThL r2wiBQzoDecPUjtRgpfsSicf9 VjdCBcXGlkIDUxMDAwIFxcbmg kMTg4CGEnADsvyVNlVK2urOln LjbdcFdcy1UxfHZhVFitJFTfF VGsGPiwSMQxW7SSCBYrAhY5XU Z0QTPvCSe0HOy2ZL2BWmRdYZW tVxD2WGB4IFTjBBe2TOqeME7D VAXmOHZ7SFSvAtDgRUGkOfGvY Vz6XMOwSGpceoZvKGjeYvypPW qcK75pcVAcARqzdMPvvogkltG lTYK4FHIzzyhcXQJcIVMdBxOd CIBbJ7seWxRcNTHgFjUcLCPaO 1hzYTMwXHBsYWluXGZzMjAgIF JnF8XoqwNcKQnvRJTqys7dsTf sZBgmUUGnDsS1RHHfuDA9CI8x OFHiDIOlNW7bRPNydX9rPIEHs CBpcyBccHJvdGVjdHtcZmllbG Z0UMofFlrvpE5maYZULOWVZtg FQiqpuxLpDG8ZVXJSSrRFCP72 UuarSWe7JHkwvJitHeceweQfy CJrZtAayS35ET96QFOuIFily3 wpHLTlWMyxv7OlTNiIDHRIEV7 AAT4kjVB9CMyRJOEUQOzcKXQz VMgmpWK9g1aoqZGfk4x0LGrfU SR0fTscsXMnfekjgfCaZREpuj Hqd0kqjm2mXUgfXJXnw4DvjSI 9BTTpZacgUSF5DXPiSTMbWJZf eMUfRDLfu5VnD1A5JCSfYBoqy 5wwIPLkYOhtp8TzLXzNFEIJOG 3BQC5kyMQ4XZvQZELID0mTsPI 2FpA1yOU1Ei34NRQwSFPliLZr HQpcT699F2capB8qertmXBw5J VBwQPepc0xpTMLtUGotn0AkLP fHZRPHFM9CEI9uzRE0NKwCCRU IQEjpHNPfBUurlJV9u2iqoBLh s8l0RBklHBN1bIvsdHOvgmbvb uDzOKNoqvUwvGIyHP0kXVp3PV dhcyBlbWJlZGRlZCBccHJvdGV boLikRgplxYS0XGcoLylrqV2s dXDRPGGKYrlFCpkntaQoHK0HK SESTdOCCY03OnsdSaO1Z6xjoI uqNpvdqnOzrJFvEfApaH8wfaT 4o3Goh4qauGQnHRhhZmskiKJj ccU3PAeWGKCRGJtTUeIaXS0xV PzMG8RHPjV7TwaaKaV0Q8uoiI heBdyitfVkhZVrKhBamE0hjEn orY8qKcFaROVkKPYqsWMmbCDr vHmzMchxiSC7LIecIgwnpC3ws ALKXJMGBzrQOovjjhZwFS0FRY CCRcCTCF91Dte9Yog3NKk7qHt yVijzjcRefWAeEoOjwR8RiYCw j0UxZ8yiLF1ds5QlXWbvs6CpT yewXvpzmOS9ORzaQqzazH8blT CSMXHZOmzLCrppviSmVL5ZQSL RRU8JpGX2IZF8kPE6VC90RQKx MZJskSMyYSraA301XHNeXNtwW MAwHeHpKFGur2qzaHeup0VomE QjAI5sbSAtv0glKTUqyQEqZZM 0IFxcaWQgNTEwMDIgXFxkYiBP UrXiVxTsXFH3OTZ5AxRlSFx6K LjmS1GNAXDlMIV1NmG9TTr5Rh K5JPt2ZUREOy9zNKY9SdM7TlC 0DvI2BKB3WSGmJZRqByAqKKYh SODvNMqquRDbIX4gFPinRaB4J QVjxqNgu0MiTZIyPBDoP6cyTr VkTSdadkFqPRR5OIQtckpyLSA tTTJrEvUkJLLgS9ynIpSiBQHx CSobNMHoMwAxZLHeZ6YaciHlG CteKAJodh6gbPpsGNseMRBaZt A1BDEsyFM2CB0mVCAkLFCkKP7 iTFHipM9tNTMZxSCxqjLdoOWe kOVezYypRcochWY0TImzIztml A1qsIQSZKNTUeuIMnkyzsQmJQ 1JAAIAYrGXPJ07GqryCXj4VVh 7tHmkBmfzvxKpsZPyQeFbjT83 JA90RVPwWNrjq2ypYYHdWQwab 9UyNDoTBJCWMT9ODH8khTM3UD yXPSJCIRkrNYTlIXr3wFR0v2w tgAJap8j2FRgeFRR6pXophHYe gbgjufUdJRLuutCla3bhfp7vV CchVSKao5EkkVV6QURdPkkaMH L1BVWwLKKGhAFhnjGakLEgiBD myQtaCvoueDP7MQbfMqeplR8d qVDECMQBCufHCvvkefRxYM6LR LFFWaFXOD50VnklTWg9Ctl9pO ozJwrrjaTghJVlDxMfyA1geJe cvgSnuKTdnUapJthkoWH2WWqo YzvzxG6ywWUVXVVRDsjWSuscz qOjVH4DJJZZLV1HvXF4QyO0vJ D8Al35MWPaREEnzFRkISgbY69 9XHBsYWluXGZzMjAgIGluIHNo LWVnQtHaFSBea4AwBUQoZyPeG QEsQErrwt82MZU6k2zawPTwFY edJtgsnESgwbG0GPiPDYUSHEl OWeMhLY9gTSwVD1RECKdBVkzr MNRnWWc8oTg8t2klvDImh5v8L PkuEJI6lOihGXVgeO29MEEuMU yfn3dnJOSsOZmfb3HjLEmFISN HXO6WWG0cyOL3SLxYZYYIMAxd IRUnSHe7zXn3g8afyGQxq9j2P MygVKU0kOzfaGCqciedjaIbIR 4dAVkakk20OUR0i1ibgHPxWDx uQbonjCWtvzE1SJwOYDMTNZbO RsEgXH3vWHaAD7ZGSAhHKizdH KefXHy7wGj3l0bkeHTep2n1QB hoVOT8lGGfHTUceJSeeK1xblA 3ENAbyO5jYZLee1qmsDFvLFfw FjxdbAAargA4ACeLIAESLJcLZ pPhPE8hZYeXG5TRLmU0Aqj0Nf k2WGd2tMfpFpxcwxTdlSUzDnZ xdU1ziUrojN6zDtWbRVNzVQbu MUAvcOVeFSpzGDNul5QzCMipp GljWHNhMzAgVGhlIHNwZWNpbW UxWHjfeaJtgl2te1PhIHG5UYa cye67TVJ1w9jltMHbXRndQuyw kJWqceN0FVrRTSUEOQhTWvRsJ X5jMGuAL6OHBPqQIcr1YCF0Yn b9dZm7g2mtqOUru9k7XKnlYLR 1cQJppIcweOP4OMBUuWNyRT1l UMzjly46AADdENxan1arFWVwC Fwro0DlZGeKHVOLFW8FWO7ysY B6EHzYWHVFDAi5VSC0Pea8xXc 8f2mtpGEyj5i7DVkjWVO7zOhn sBXetyzdcrDgZYY8IBBbyBIxM PA5MS3peIqrAHKzE9QhJ2Tgmu A6ACBfkrd7FWXHCMGJCLlDCI0 ARDGXTKQJGU1IEKgYHrDuOOPm FZghCITtGeajSCs3Up1tHvY4T wLtdDX7Kw4wWWkyPGa3TATvQc zjHXh8XR8hVsO9WmE9zXX9Za6 fKBNwTRb2LYMzAhb7Bfk0NQ2c TpLeWUkheBt2AhNUPEZGEKvRA 8XpVPOIRJOGOZPqCY6YNNjNNP MLIUPLG02XVUWCZXUNV1UKE7v FILtDURIHVIZLJ88REIFDCDDS W9QGWWQBXMHQUZxQBPUORx5OV OXAPMHOFB0RAKvOUkRiBQmiWN HpeGP5bUNtwV9lQrI1PkM3WJ6 jPGdqERIheBL3gHPkLWHfHmM7 FqP2ZW9iCYlzIYNihAL7sDUmD pJkEHSwLqI1WnBuOE62FCwlQY DwhRH0oUfgbtuaQXuaGOd3PAf 2TKUueDRnzCijy6dyhljbHIVh OOh2Eyw3TALizPJkvFlqjJItL OeiTNMlDFy9J3h0WPBpdORkiW ymvRUuPIBgVFupCZJmUCp6YYq 3PKKpuLSutJgygdo2Xpv2Fykm xZyzv0Jvoi9pFRUpV0Etj0Lkx ki8FML3Npn7RLXTRPIYQB7KIO UYF96LDFCZEDYPB4NZTIGOXlX RWUGLA18MOFJHAGDGF7ZFY8gE UUVKYoILEMKDW42BLREEVESLU 5QDBXICFJVTClXPObGAQB1MHI ZARXPBNC9SMQpVKqEkZCRGV6R DAgAQS3jcCJKDZGEEJJXsKX6L fQ== [facility] Work Phone: Pathology report microscopic observation Narrative Other stain r4pzzYGqNQUaqIAaEZbvGfisx eRvELDutCPiM8MbqymtQUaxFP 7wPF2yeCwnsHNzhTWaMIOuCjW cp8nck608xVWly3rhFCYErpje xJo1wBllM99ki2E7ZteyV32sr WUrVMW5HLKwZDGwvFJzWZGoCN U1RDIkbZJsR8fhSZHnFQ2bvxc sPAwmGOgeMSPwxSU5TDWlqLBu H1RgXUKwOJzvIHUmvym0NpUfB j8tdTLzqRyoTOmxPKCcELLaPY aqWZPxEbQsKP8kSGsqwv2jM75 fuQDzBFhphYaeECDsr57yfhF5 ZWFscyBhIHNwZWNpbWVuIHRoY OBcRTf4RX2sgsQvbmMyJJMrRC BkZWVwIHJldGljdWxhciBkZXJ taXMuIEluIHRoZSBzdXBlcmZp K4wwiVGlcyJbJMVxzZLrTYRrp XMgdGhlcmUgYXJlIGlzbGFuZH Sgc8Pur9CfXJPjne3zqBDvrsP 5hEQkPUCiwjByBUevz6LgRLMh bdf8JDGxf51sZKHliwelTGJnD f4vKXuvre2yG40ryZBjJC7qvD bbiTTti4wcf7JjrLDeWBb4wRK bGPblg7f6wJXcUaGmUTNvsZbz b1L6uRAjYPIrSHIrPEIzOXSrv 63avFG0UQIes9q7kPN3pVJrQL BpZGVybWlzIGFuZCBpbnZhZGU dkFkjVRZpav5lhqKsltTbv71k EAOcJSQdj1tpizTqLYHoNBWxt YEzqqYlOjNjXO3knbPmNVZgeW ZtXO1bHLPlltKpLIfoy2RcLUH zjyw2ZJUfr46iHWLjPBDoJPBe scVbTIkeWUOrf2XrWWIrgLpiE PHqPVOkw28kpVguUUBeSMDvAH IdDUZyhm9kZZOkFMPnyZEraCY uICBBdHlwaWEgaXMgbWlsZCwg YV9lDI0zpY5tWPHnFFQcTYElr mUuXHBhclxwYXJccGFyXHBhcn 0= [facility] Work Phone: Pathology report relevant history Narrative q3qhfCUeCWNwhKVmOOfmUuxtb vAvMJSqgAAkE9IswiruRClxEC 9lIU3rcGokyRHsqLBgZJOwFwD fh6uip363tFWkn1rxODHTbnpu zJs4l9pbFGEABThkPQBEFPj1k KpqQ38qi3F3UryvH3inBLCuNX utTJPkHRcwoKCzAQy2MLBmiWU atqFrIvDfJDPybOVuuPE1RZFk MY0wxwooXOtyDTqpIOYdqkG4H XNrzUAwO1GjVUXaZA9tlxtyHP D9FLfqRFDmDJQ0SqAjEECtf4T qnkq1SeLckUJjWImkjWGprkne XMoqmjJjOFOsWOWTKK8ih0Txt 60qBFfcH67ta3jrDcAAgLY6MQ ZgAJFma6Vqf3NrAAGoHzOgHNU ywlvyIVDehVKySFDjhR1gQ2Jb MButk8TplxedO2YoH5yheHDOJ RL5UAU4QlKxxRAhyxrqEBrpIB JhZGVuaXRpcyA+MjAgeWVhcnM ei67dsvhkjGNyDkV6aV9vy4Tn KS7awcK7zTJlPZIhQ9OLBB0og LYboML5mUXgyQKnaRM4sSvdiW Yaz5S2fJCoOPDgu0FrxCEcwap bOEGoQGQcSTwnTcTdI68wlQqg VOZnoXg7BUWhICSkQK5pBPmoY tHkJcF6wH8jd8Xka0v9xJAxmU LjfVPnf69eaZfykxPbtzQ3bRW cgMZoqFNggXFEY4XfqQQhtD== [facility] Work Phone: [facility] Work Phone: Magnesiumon 11-20-2024 Magnesium [Mass/Vol] 2.13 mg/dL 1.60 - 2.40 mg/dL [facility] Magnesium [Mass/Vol]on 11-20 Interpretation and review of laboratory results Normal [facility] No Panel Informationon 11-20 [facility] RBC shape Nom (Bld)on 2024 RBC morphology finding Nom (Bld) No significant RBC morphology present [facility] Renal function 2000 panelon 11-20-2024 Albumin BCP dye [Mass/Vol] 3.4 g/dL 3.4 - 5.0 g/dL [facility] Anion gap [Moles/Vol] 15 mmol/L 10 - 2 0 mmol/L [facility] Calcium [Mass/Vol] 9.3 mg/dL 8.6 - 10. 6 mg/dL [facility] Chloride [Moles/Vol] 100 mmol/L 98 - 10 7 mmol/L [facility] CO2 [Moles/Vol] 23 mmol/L 21 - 32 mmol/L [facility] Creatinine [Mass/Vol] 1.25 mg/dL 0.50 - 1.30 mg/dL [facility] GFR/1.73 sq M.predicted among non-blacks MDRD (S/P/Bld) [Vol rate/Area] 70 mL/min/{1.73_m2} - PINF [facility] Glucose [Mass/Vol] 104 mg/dL High 74 - 99 mg/dL [facility] Interpretation and review of laboratory results Abnormal [facility] Phosphate [Mass/Vol] 2.8 mg/dL 2.5 - 4 .9 mg/dL [facility] Potassium [Moles/Vol] 4.2 mmol/L 3.5 - 5.3 mmol/L [facility] Sodium [Moles/Vol] 134 mmol/L Low 136 - 145 mmol/L [facility] Urea nitrogen [Mass/Vol] 15 mg/dL 6 - 23 mg/dL [facility] CBC W Auto Differential pane l (Bld)on 11-19-2024 Basophils (Bld) [#/Vol] 0.08 10*3/uL [facility] Basophils/100 WBC (Bld) 0.7 % 0.0 - 2.0 % [facility] Eosinophils (Bld) [#/Vol] 0.43 10*3/uL [facility] Eosinophils/100 WBC (Bld) 3.6 % 0.0 - 6.0 % [facility] Erythrocyte distribution width (RBC) [Ratio] 16.4 % High 11.5 - 14.5 % [facility] Hematocrit (Bld) [Volume fraction] 29.6 % Low 41.0 - 52.0 % [facility] Hemoglobin (Bld) [Mass/Vol] 9 g/dL Low 13.5 - 17.5 g/dL [facility] Immature granulocytes (Bld) [#/Vol] 0.05 10*3/uL [facility] Immature granulocytes/100 WBC (Bld) 0.4 % 0.0 - 0.9 % [facility] Interpretation and review of laboratory results Abnormal [facility] Lymphocytes (Bld) [#/Vol] 1.78 10*3/uL [facility] Lymphocytes/100 WBC (Bld) 14.8 % 13.0 - 44.0 % [facility] MCH (RBC) [Entitic mass] 26.5 pg 26.0 - 34.0 pg [facility] MCHC (RBC) [Mass/Vol] 30.4 g/dL Low 32.0 - 36.0 g/dL [facility] MCV (RBC) [Entitic vol] 87 fL 80 - 100 fL [facility] Monocytes (Bld) [#/Vol] 1.14 10*3/uL High [facility] Monocytes/100 WBC (Bld) 9.5 % 2.0 - 10.0 % [facility] Neutrophils (Bld) [#/Vol] 8.58 10*3/uL High [facility] Neutrophils/100 WBC (Bld) 71 % 40.0 - 80.0 % [facility] Nucleated RBC/100 WBC (Bld) [Ratio] 0 % [facility] Platelets (Bld) [#/Vol] 758 10*3/uL High [facility] RBC (Bld) [#/Vol] 3.4 10*6/uL [facility] WBC (Bld) [#/Vol] 12.1 10*3/uL High [facility] CT Chest and Abdomen and Pel vis W contrast Mp 11-19-2024 UH MMODAL UH MMODAL [facility] Work Phone: Radiology Study observation (narrative) [facility] Work Phone: CT Chest and Abdomen and Pel vis W contrast IVOrdered By: Ravin Hyatt on 11-19-2024 [facility] Work Phone: Dermatopathology- DERM LABOr dered By: Ashley Ramos on 11-19-2024 Laboratory comment [employer] (Report) n5bzqSEsTAUdm9mnTWBpbFJrG zEwMzNcZnRuYmpcdWMxIHtccn UvBWdwd8QoS0ShBlFgFCsgjfI bIWGmDgkdpuekTCYjGHZ0jgFv WHRwMRpuLSCfFHrnLs2ehFCvi ZeiCdLfCJEhe5gcnzTXFWeoVM EZXXk9y0aaWZMjRbV5cZSlTQw oQ5wdtgYckJUyE9Glh1AkQXa2 oX08EWObuL0kfMDhANaaieTgV kH6ZEzvLJZwUgO2DMVemLSxZD FtN2wpCVMuOIjnSELiZOmpzTG bTEB3kAhol2Y4jXEziBZutWns PtIzFbMuEvMKc8YeNSp9oVybV 8CuZUQjSqC7tDOkMUCaNSwaKN SsFZQyohQ8dZ85LGbrdgH5yJO mm7Qkk05ry785uM4fyEChBNN0 FCHgNCLchZMbMCKlTLN6ASIup SCnL5zgSjKydWMdZ5QdQiHxyO UcM8KnEkXqqHUaG5GnFbLmqAA hEOMqaTJ4HZbqo316WQZ9YjXg ZA2jG6Kyf2B8cU6jdRJsHFShj VFcLfXxFZUlad5edDRaHEwrz2 SbUIB8isW4iXMbzPRkGCKfOQ6 8Blcxx1UmMezlZZP4GLTsjzZx m0Ffv8ayWfWyewVsL6lyH7DkP COtGDJvNADaReLyunAmu6Tjx3 LljWFehWd8t5yyRHTxMZOhwWx ho0tnUMQ9JPUwG7A6hWGvq8ur DLdvEIAzrZU5fyK1BZisSWMrq sK6hcN4MCijOQJmpIO8cxX5CC hpNKYoVvU6vaF9ZMykVWWkNSV 2KjWjPZItk3JmpwxuUwRup4Wn eRFwEXocQ44vi498PBXlbxZxR 1xwbGFpblxwbGFpblxmMFxmcz P1PPGgZYYdQIgiGOSeWUWkWcQ cbGFuZzEwMzNcaGljaFxmMVxk PbKxWJFgBGpaA0vcBeVlNeFjS KDHtQA6tADgi3mbizH8zVQdIP 5gRVLbpEZaeyGuf0B2IAT0cBN egH1xiWHgPXSwyBBrrfLtpa29 gDDjcKR2RBWrXHKonRKzpO4zI DBdCFIWoN3itTBGxsGmbqGeZZ EklCivyb6NrQZvxg1xfDIxZ3Y ydGlmaWVzIHRoYXQgdGhleSBo PRUaFWTuzbhun7VlZJQxfXKvP 7EvJQ0wFQWblf66 [facility] Work Phone: Pathology report addendum [employer] (Spec) l5tbnKHyFRTkkWOrYFgxTdybn uBmCIGshIXdJ9KwdakxAJaxXL 9dUE4jmIbevRXdbTUvFNLbZrM jh3gfg253rBNqn6fmLHCZnouq gHy0nIzgH12fs5C0VpzmV81co HVfVNH8XAKaDTXgzLXaOVFdKO C7JDLfhQEwO1pjDJImPV6hwfv wHWaiCQxtDYBkyKQ1TXPdaYEv O6IxEBLlPPzlYNOoxlx2MtLqP u9dhWQtkUguVIkmCEDvURPwKS nvYVWlDkTlQVUIn77dvkGUCRL ym6MwoM9rLOXcbwCuh2jmNEMt vn2ivzxqlODiTRAjhdQvuBLbo G1lHNJzegH5oV8qGB0zOAIrgy 6bI4DiyoQldMbgx4CaJCEeOlC kbwI2bHWrqLdun4B8VRPxEAMm LBDieMUdMA9iXPPzpIiiYOXxP UTlnbXjpSGfXJLfxww3kUOkUY LkfKsjfIFgHZAtd0ZmfEBdUMc wYXJ9 [facility] Work Phone: Pathology report Cancer Narrative [facility] Work Phone: Pathology report final diagnosis Narrative c9iptGZbSLDbjJYeIYnlEpiaq aFrYHExcZLqF4JfaggdEPzrBY 9mYW5jvAureDOneGAvJRQlUeH vp3ira931gFJjn9nrPFWKsrxi oMq6dEtdH09jd9E2DftxX01xp GQpNNM0ZIXgMZSorSMtPBMuTX D5YZXezGJqL5ntWBEvKQ2nafc dVSuwWOscEBJfvMY8UTFuxVHt L9WrBBLqROdgFKDummc3KtHwN f8qjVXqkYibDRigALOsXEZmDO trGQZlMbMiOS9pF6yZGadmOPv UF9tsNBPRZkUNXTULB2MOHJhq pGJuPHNlYU2IZJPJLaQkM8RBV O5EYIIvN8HGRHNGLXCOHO5MTT PeNXeqpz65MWV0o6tfyHQzTWr jLkruvPVbbfI6LDiDGDNDRQgA KaEmHY3gEDyXR6TOSXfEGctbE RG1I9whzXG0v1vtzFCku6h7GH nqTEE8mGwEUWy5ZIHrRGqqc3n sHCEnWHatu4KvLHnXZZPVAV6T WT8qqGL0PKlFCJAYQCsrOHQ4L 5fiiFF3f0llgTSeb1g7BJunGI U4iVcklBEveccpUNOpJyYhFCR JRkZFUkVOVElBVEVELCBFWFRF ZjTQCcyiWC3aAAxAIJMNTDTqC F8OLTJDNEKTPQGBOLtSQaSQXM 4SKopRWxWqAH8jHOoUZ7TgMUv MAsAYOC7GWMBXV8PQB21wKVGT DKDWE15FJH2TIWweyWCbRNZii adkSYSKp08tKN72VvJNQXQzNa luaXRpdmUgZXBpZGVybWFsIGF 4dRIjuX3sthAlkKChuw00JBSi bCIcJ8ysaDMdFXqoSXYhDZXbr bIeiFJzcHWcnJ5edKrfxhWcBT doaWxlIGEgcHJpbWFyeSBjdXR jftKizTYmt9H1ZO4weEDyM0Ue aDGdUJOkoZ9qwHYweEZyNqW7n 0RxDBzeVQDdKLIsv1GliTefJN WnzLVdc6JlYLNvzFqiN4VsD8f do79vOOJpfd1paLKqMXEfwWWu uTLwNJDuheL5wNPoeA9evOhvf nMgYXZhaWxhYmxlLlxwYXJcYl vfCRHzVsBpKf6dK0jWZzbiVQQ EVAALSDVAS6IUAxjdTBVZI2wy GvgGMMZBHdfqBELeNuXXX6UED RbXK4fYSDXKUYAOYP2MSV7ONW FTTUFDWVRJQyBJTkZJTFRSQVR UVFyFIZHeY01BJXJIAMc2TZQk aghoYCJqWsBlK21zaWMlaEfzN GhlIGZpbmRpbmdzIGFyZSBub3 Sjl5ZxL0hucYLpXG4zUC4mxDO dKSMeKHXdVIJguqEvSY75RUVf YNPuKCEqEBDkw2MfK3ajl69hP wT6wEVnxnF8sK7dFO4yLUOdzQ 2pFNXrHJQqKV6cXMYrglfdTOF qgCvvLPCrWDvpwsF7KBVfRdMh ChNvIPY3sr5blSIzpOp5WUPvG 25lZCBvdXQgYnkgQkVUSEFOWS HUIlLCH6cRXBSEXSrwKJSaqfi cKDWyTZClGVYclKYeUYIkQ54B CiXMENNPO07YBAWIPOCPS3JYY 1zVUVY6BZWwbUK2SJAQEDFQIL aTB0NfSLOTNAUFSZLwTB5EWTe KSHMCSKNXM41OWJJWQLQQX8JH L8fLBIxTIYIQXAZXK93VHHMYK OLSW5BPLXJRXHFFFMhSXQCONc 7GOQAFGGFTXK7VSOeQWfVlRPj FLDEPWBJXYBJIGgudBVN0B1d6 DKEZYICBDM5VBSXNY81AGWOAU OSYC6DKFDLCFwXYIXJMF46ARS JHCZHUG0MNR5rQEIQIDgPBMKW DR57JVGFZKWOVB4QWMNVXJSMN IoSUCoIDKS3PPHHNZJYTBT4CS HfDNnFaUAQFD0GYJcORT3erHM BDOPDBRCOrGP9WiR== [facility] Work Phone: Pathology report gross observation Narrative s0zoeLZvLQRiuWIpCPjiZagve sFcQPYvoSXaH5IpyagiLGovPC 8pKM8ujBfvlXPprDNvGBEfWoD le3lqz627gLSgk1ftCEXNnhje dHl2dNcvU16rc0Y0BrtqC95ln FXbYHY1HOReUXVanLTpJJJbCM W6XSSecXNmT1vcYOZcAS9hlhd fAXdiEIfbBTQxzAR6YFEjuRDb A9XmESUcJGfqQJRkryi0TmKzK p0qrJWyhMcwYLhbZtmmxRjah2 VjdCBcXGlkIDUxMDAwIFxcbmg dIJb2BFOsMIbjxQGpMY9qkRhg NgmbkOzfy9DmtFFiHOjcUHEoI WTkVMaeKMAzQ2NLNGZvCvL7AU HyIaWnUNb5VQo4BT7ROaAoDNP lMsO8ISZgPEPuVNz7PPcaQU1O IDEzNzQzOTUxMTMgNTQyNjkgX Jy6VHVmFMfxrqYbMNskPmnxUK xuYyBcXGZyfVxwYXJkXHBsYWl uXGZzMjIgQTpccGFyXHBhcmRc n0DwKFfqsIohDUNeZdXba1PvI QbrjJtcBBVvWnMcuEeacG7vPl PqHGSICSWaoCTeQDGrvwNqy2G mACdpygXzeiIzVXCcqND1IVhz VJQmaRDovWQdVDHvKeJrc4hpD aEhADRocVPqBIMlx6MsJ4A8GG GcGEwvz8xlXNTtUScqt8IzCZi ZASYIUF5OOJ3biYX5LKfMNNIO U8hTvYN4VaL7vKM4JM06DPIoM XUnkGXlALfaX553qIUdp5jmpE LeIJmdUakfiUTjdpF4TYaTCNJ XKWkGNmNbKW9yWPiBB5XYDqK7 RtdcTWs4MCtomWyqFqolsySmp UEaBnZoiD8kgSotkB7kRqEkJP DcmT8eC40xr7YqKFNNuTXlvfN elAIevFYrhDwaDlmhyIE4FFlf NinclW6txWXDWTALKgxOBptfv sYhSH1PNTVXKeBEVL72ZoagJT n4PhwakVrzTztybrKomRNmKyU voV7bkLpfqaZtzWIsmOwlSaaw gHO1HOxnFriufM2xlYNJVJFGA brFHkukrzAuYB4RJNKPWM5NpD I6ShR1zYU2Ye11XIGyGXPuuYQ iSTwkT308RKMvNGlzPFHnXnBp BLtzVRKiEBRqXxNaBRLih6OlE YWvDdIyYYOeBZalhw85KFI5b6 yneEHgWCurSezggRRyedG6CBr DHPYUPSwOPsOkRV3kVIwKZ9CL XVeYIpzyGSVaEMcbhLZ4d1pjp XZht7z3SKlvZQL5nGruNYTjeQ 08MSVgWHero3rzQNNuSDnnm6T hSTuMXJPCNE9GUM5jjUY1IIiI ONGXSWewPOUiHYbfqFQ9r1obs EOek3e8PZywJHF7aCvtvJScrz jexkHpOE7bECpvkq72GGS8v2o scTXpGQifJguueVPigcK4MWhN VHQAJKuRWzHkZZ0dGAbVX7DEY IbYPtjtTPwoRCj9xWO1c2ojkD Ryw3z2OGbaBYE3rXHkONLhnLG bbQ0qyaU5FXBeqF2dRLFia6ac dEXsRPuyOtnmjFVlcoY6ETbJJ EWXZYnDYzDxNN9rAWvFY2SRBd K4Lng3Xtc4MGk9eKigWmuxajI wiAWvMiLjwT3ceMuhhQ8aAqHt SBHhEZLlk2tlrJnxd9GarKBsU H0icXYky8gbRDXrqIJkOYF1XS xcaWQgNTEwMDIgXFxkYiBPVlI rMuFtVEA8FSV9WkLmPBs1NMwh G3RRPQUgKZN5HWc1ViQrVzD4A Lr8ZYZYZz1hAVB2ZQH7XSZ8Yh Z9BKP5DFPxTNRuYyAiWHBcMGP aFFkdwJAdAE2dBNenDyE4PFBz ohEfk5HeEZEaTWIwA1xxJkQbH IemrlZgIFS9AIRldrxuKIXoQN ZvEzDnVSYyB6yhFxTqIXNoFMv yXNKkIxRgIyUnACr3ENViuS5d Ne1frBOdwT5dnWVdUFI6VZneI JU2SJKkpR4wbCpiX1Dax1Nxa8 alku1lZDj2PVoqTFvfck19FIQ 0a7yvkFLnZPhyLkplbFOtwpA0 EFiLVAFYHEpPTuRjPQ4pYRtHX 9DZCJaCKicvHTXoNAp7zUP1q0 bgpXIci0p5GUetYUA2vBSjcmv eYydzoAD5TPrvUwvlzM1auNKR WAJDXsyRSevsnkNhZS8HROFOF W0UwQO8ZwR9aBJ3ZZ75PNUjDA DblJUqCIcoZ878DXBcBUoxGJT yZdRiHDwsDWYbwF4gLdEqWKHc sPIdVFKqr8QgX9M2LBQgYOcjo 6mjKMTnHCmhs1CaPTgXMVPMUS 9HAH1yzOD3UXhTUQTVS1iNcZM 1EsA1eGA3Yh33XTJtWTBglHYy LCxcP844D2xdyE6opgjuTPh3S YVoKVvvl3tzMXMwPQsyn1EnWX dNZTDUBW7DOL5crJC5TBuKHZG ZWQifWPTlMJi6vAG5j8vzeBQl e2q3MDvkTNV6zYwomQNwuvari eHrWVRbblQdhKAtNF9lHYp1PV dhcyBlbWJlZGRlZCBccHJvdGV qtZedNoflnTK3FKqtOhlthA7s wCDRCASLQksALybyliXeWG6HC RPBKkVNQA42CyslBiO3W1u9xQ qbXqirvhVadLCzDbSagF5otrF 3b6Wci5wjeVBeZIwbDpofvEMv vlJ5WBcLSFVKDAhKXcKgPE4kX GtQS6JNMuS1RuuiCyD6N7r4rD zqNanioiOldSAdCpNsuE8coQt ndU4tTqLkQMRhHQFieITaiHSj tZrqTkudeAI1NEsmTsgavG0yn HETBPCLXpwQFtkmocDtBS8SVB KZDgDJSI25Asj3Nal6JEd8xQo zRlfkrcSesRYsGsSndZ6ZvAOr b0RnB7wdMO2wx6CfNPhgu4ArC onbYozxzYZ1NRfxWrnhoI4zmO BUEZIBOtlYHfwszkNvTC6KJMN KMA0UvIX0XXS7iYw5ZT61MYBc SSQmjFLkOFmjS551DAZiLOefN GZzMjAgICBccGFyXHBhcmRccG EeXCShVpGyKSGaL0vvDLEnGTJ zDYDszTZxeL4yqmB0AAJxX6Im i6OcEAZcqKBvhNPhjLCodNbzS upjdII7PQwyMpornZ5vrDKBEI DVWwbWTlwwbyNgIS2QNRHAJrS QYH93BQT5MsG2BDm6oDmuGbke yyZyoNFoRcAcoU3EAOU4aBUjA LIabXeptlGju5owrXHzNWtlTu pumWEaqsG0UVgXJBXMGVtCLwQ nIB2fLSpNO4QYVxO3QHG6FuJ3 GOu7jGdvMjecemYwvFMpCcDuw H6xbJljhG3kPlJyNFMeVQccSU MjR9NrG1IomtI7w7tdaKebl3G kdDRaOA4bdTTvCCSmF01CWkQF PELZO02XVFZCSJCOA8KYX4nZM GM8WwA9hRN0PX0kDBGtKWcnTG HcNkufVrB6Pk3cHtR6JAW1fYC 9TG5rEVAgQOn3YXQkYxkvJOl3 Kh3cCwF3SvKgdRe0Nl2aSStwN Jb1DMZuSZM2FpT3QC9mDWRIOD DQRDrTVG4PHXXENAMYAP7QTnJ iF6dAHJMTYgRkODPYQPWFMTEh JpJVGX5pM2zMMBOUVeIjDIYFG NBHVHBqIJ9ACAZYNKIBXY0PMV LBQ23CTMFWIAZQA1XBG0wSXYF bf2Cdtt9tWDAhL26bu5C0Bhfo ZMqgyJQmh6Njqv3gEBUgv0rwu SA5IxjiUFodnMBdy5Kgbl2dFQ HjOY6nOKXzSCH3QawhJrGbuIX fa3Iqcf7bVJAclR0kXtX4WPM6 SI40QMzkEVQkqZG5rWQnnM7aB wD0MpI1DL17AYcfKAWfaVX1uD CnAJHjVcN5UhC9BN90FFqmZJF blVC8oEOeHuKvKFUdWvW7WmYc ZX30MFnyIIVpgBA6lGlyjxaoR KijUEq9WHr4PTRndYLidKtcql 4jn0QpWaAgHWouXM7jCZyWU2K CT8uZTEXmQNGRUWOHQKOaTJ8S MHwYHA8KTAVyDLQBXKYOVXEoA lGWUF0nWLuULV7OEUXeHQFYBR MYVTXiZW0AFGGNFC6VXYTIRJP CQ74VKQONMWUBA2IAL7lZSLZA NAKQHtVOKhVPUQ0JYIWQSIZKN W9DKmA2 [facility] Work Phone: Pathology report microscopic observation Narrative Other stain e3rjbVZtNOYgmLHwJMezSwtsl eDzMIHydCKhW6PbdstjRNxaOY 5aOW8skHpcbSKbdYVyDJBfBtF qn8zra033lKCys8glLLYKsaxs aKk6eWjdI14uw8J0NamjA14gq MHfJTU2QUSrNWHunHEtFSGgYR N9XNDwtOHfT9qnDOPnAD6bxpy vAJmeLNksPRBioOB1TKMwfCPl Y3IiQNFkTRioJLVesxc0XlThF w7ocPEryZowIVdvUJZbKOBcLJ buPQVpMyFwTS7zYEjrZGT7nbU pAKZxu0JamBSaXYBdTAhtHUPl tfMniw9esLGjsEdmyOMqqYJyK IKeyBfed0A9gNRehUJzOL2umq F8vOPgVTcsGODepZZepLJxpYs xh81rDY24T2xiMVSfkHohl43b dpPkvIIiITOnpgUtl0TvKIGsw lb6BXCzy15eAPJzqwtuEEHuHz 9bCDorOBjvqEK3j5y0bUcxEXS oQETJk1OhogFvsLBzmoFoQDOn P4Wpy27iXH2eYDJeMXRvjF2aq OMjrL2ub8scl0GtE5rpJT4iya R1UVLpHXRfjCTwcf3skURwB6H ozFkfm0qqCHmbpTebZNXvNV78 fbQiIIGbhFR7MIOoJj4cgNkxd BfgjxImu8UiBT4mXNlkpvOnoT QnVBHyRYvvuJs6QJl6AOGkcmM xWANapRGzeqasChGfg4fbjDS1 rZ1vDKLtA9LcoUUtbK6mpL6tA AlvouEfoPTev8MbMZEtzIRbRV mxaV3wEHTvyIMwpkIzm02haiU ylUf9IYReilp6HNThzLuhgzCu dE9fsK5krKYqfJZwwLPhDeQqc mZpbHRyYXRlIGFuZCBtaWxkIG EeAKXsPwaggo3uyHHym9m6jKK so8ElqXRsLAesy5P9qKPfGMRb f5MsuC8mdBIiEZHzeucgMDH9 [facility] Work Phone: Pathology report relevant history Narrative w0bqtOQpAHSdkAUoFMfgTmebf iKhRHIjoXNpM6FipqncAXkxRG 0aKE0ncVumvTShtEDvUPJcUwT ea6iao856cLIhg7brBKIZukex sJo6z8yxOSLSHJdwQHGSOGb5q ZbvB57pa1M5DnrcU5ptIFTdVA cyVGEtIDoreIPvUBw9KNGonDN fvwGxAhQpAGQphBNrhVH9NWUo WN9simhpDAtdFWgbEAJrdyZ3G FEcpROgB0IyCZZkYH2aotbfEC A2EUkrZXNeDCY6PcLeMFBmy4U pcud7IoHlkIVbSQrvlKUhgyte IYcvuiTaUASgZLYHAL5be8Atl 92oPZfqG88zq7yiUcYDuYX4VD ZpHQVnd1Kbf7QpBJLsEjNjRVW txmvsQJUrvVFwIXJufN7tC0Py NPvmc3KjqputT8LrB4lrwCSSL LH2IJA6FsLEiFN0yQAvTVpjim dzdGFuZGluZyBoaWRyYWRlbml 5sNMsy8SbzXxhIUH2hHArQ5xn KTghnTylBGXrKTabADIdfg1qP JVwgOwvIM8rk7JziHsenXJpsm 6uKSCjqdIiTYB1OC7avsAqIVy kfHbrNZz1kjSbLYPvBQvaLFQy IHdlbGwgYXMgYSBjaHJvbmljI CDgQ7GgXR5hOHzfGzOuZcL1eB 2yk1Las2p9nQZcirQ4xeM3OLR vVf6yJSMaYGTvfRhiN6fwe91c ZyOXXzN4pz1dAWPxrm8yuP4sr aV1rKWthi2pfTHfeH46unSpIQ iwNWPgwyWcmj0dXNveMKU3 [facility] Work Phone: [facility] Work Phone: Magnesiumon 11-19-2024 Magnesium [Mass/Vol] 2.06 mg/dL 1.60 - 2.40 mg/dL [facility] Magnesium [Mass/Vol]on 11-19 Interpretation and review of laboratory results Normal [facility] No Panel Informationon 11-19 [facility] Renal function 2000 panelon 11-19-2024 Albumin BCP dye [Mass/Vol] 3.4 g/dL 3.4 - 5.0 g/dL [facility] Anion gap [Moles/Vol] 14 mmol/L 10 - 2 0 mmol/L [facility] Calcium [Mass/Vol] 9.5 mg/dL 8.6 - 10. 6 mg/dL [facility] Chloride [Moles/Vol] 99 mmol/L 98 - 10 7 mmol/L [facility] CO2 [Moles/Vol] 25 mmol/L 21 - 32 mmol/L [facility] Creatinine [Mass/Vol] 1.15 mg/dL 0.50 - 1.30 mg/dL [facility] GFR/1.73 sq M.predicted among non-blacks MDRD (S/P/Bld) [Vol rate/Area] 77 mL/min/{1.73_m2} - PINF [facility] Glucose [Mass/Vol] 105 mg/dL High 74 - 99 mg/dL [facility] Interpretation and review of laboratory results Abnormal [facility] Phosphate [Mass/Vol] 2.8 mg/dL 2.5 - 4 .9 mg/dL [facility] Potassium [Moles/Vol] 3.9 mmol/L 3.5 - 5.3 mmol/L [facility] Sodium [Moles/Vol] 134 mmol/L Low 136 - 145 mmol/L [facility] Urea nitrogen [Mass/Vol] 15 mg/dL 6 - 23 mg/dL [facility] CBC W Auto Differential pane l (Bld)on 11-18-2024 Basophils (Bld) [#/Vol] 0.07 10*3/uL [facility] Basophils/100 WBC (Bld) 0.6 % 0.0 - 2.0 % [facility] Eosinophils (Bld) [#/Vol] 0.4 10*3/uL [facility] Eosinophils/100 WBC (Bld) 3.2 % 0.0 - 6.0 % [facility] Erythrocyte distribution width (RBC) [Ratio] 16.6 % High 11.5 - 14.5 % [facility] Hematocrit (Bld) [Volume fraction] 29.9 % Low 41.0 - 52.0 % [facility] Hemoglobin (Bld) [Mass/Vol] 9 g/dL Low 13.5 - 17.5 g/dL [facility] Immature granulocytes (Bld) [#/Vol] 0.04 10*3/uL [facility] Immature granulocytes/100 WBC (Bld) 0.3 % 0.0 - 0.9 % [facility] Interpretation and review of laboratory results Abnormal [facility] Lymphocytes (Bld) [#/Vol] 1.69 10*3/uL [facility] Lymphocytes/100 WBC (Bld) 13.7 % 13.0 - 44.0 % [facility] MCH (RBC) [Entitic mass] 26.9 pg 26.0 - 34.0 pg [facility] MCHC (RBC) [Mass/Vol] 30.1 g/dL Low 32.0 - 36.0 g/dL [facility] MCV (RBC) [Entitic vol] 89 fL 80 - 100 fL [facility] Monocytes (Bld) [#/Vol] 0.82 10*3/uL [facility] Monocytes/100 WBC (Bld) 6.7 % 2.0 - 10.0 % [facility] Neutrophils (Bld) [#/Vol] 9.3 10*3/uL High [facility] Neutrophils/100 WBC (Bld) 75.5 % 40.0 - 80.0 % [facility] Nucleated RBC/100 WBC (Bld) [Ratio] 0 % [facility] Platelets (Bld) [#/Vol] 785 10*3/uL High [facility] RBC (Bld) [#/Vol] 3.35 10*6/uL [facility] W[facility] (Bld[facility] [#/Vol] 12.3 10*3/uL High [facility] Magnesiumon 11-18-2024 Magnesium [Mass/Vol] 2.19 mg/dL 1.60 - 2.40 mg/dL [facility] Magnesium [Mass/Vol]on 11-18 Interpretation and review of laboratory results Normal [facility] No Panel Informationon 11-18 [facility] Renal function 2000 panelon 11-18-2024 Albumin BCP dye [Mass/Vol] 3.5 g/dL 3.4 - 5.0 g/dL [facility] Anion gap [Moles/Vol] 15 mmol/L 10 - 2 0 mmol/L [facility] Calcium [Mass/Vol] 9.9 mg/dL 8.6 - 10. 6 mg/dL [facility] Chloride [Moles/Vol] 99 mmol/L 98 - 10 7 mmol/L [facility] CO2 [Moles/Vol] 26 mmol/L 21 - 32 mmol/L [facility] Creatinine [Mass/Vol] 1.22 mg/dL 0.50 - 1.30 mg/dL [facility] GFR/1.73 sq M.predicted among non-blacks MDRD (S/P/Bld) [Vol rate/Area] 72 mL/min/{1.73_m2} - PINF [facility] Glucose [Mass/Vol] 91 mg/dL 74 - 99 mg/dL [facility] Interpretation and review of laboratory results Abnormal [facility] Phosphate [Mass/Vol] 2.7 mg/dL 2.5 - 4 .9 mg/dL [facility] Potassium [Moles/Vol] 4.5 mmol/L 3.5 - 5.3 mmol/L [facility] Sodium [Moles/Vol] 135 mmol/L Low 136 - 145 mmol/L [facility] Urea nitrogen [Mass/Vol] 14 mg/dL 6 - 23 mg/dL [facility] Basic metabolic 2000 panelon 11-17-2024 Anion gap [Moles/Vol] 14 mmol/L 10 - 2 0 mmol/L [facility] Calcium [Mass/Vol] 9.3 mg/dL 8.6 - 10. 6 mg/dL [facility] Chloride [Moles/Vol] 100 mmol/L 98 - 10 7 mmol/L [facility] CO2 [Moles/Vol] 24 mmol/L 21 - 32 mmol/L [facility] Creatinine [Mass/Vol] 1.28 mg/dL 0.50 - 1.30 mg/dL [facility] GFR/1.73 sq M.predicted among non-blacks MDRD (S/P/Bld) [Vol rate/Area] 68 mL/min/{1.73_m2} - PINF [facility] Glucose [Mass/Vol] 95 mg/dL 74 - 99 mg/dL [facility] Potassium [Moles/Vol] 4 mmol/L 3.5 - 5.3 mmol/L [facility] Sodium [Moles/Vol] 134 mmol/L Low 136 - 145 mmol/L [facility] Urea nitrogen [Mass/Vol] 13 mg/dL 6 - 23 mg/dL [facility] CBC W Auto Differential pane l (Bld)on 11-17-2024 Basophils (Bld) [#/Vol] 0.06 10*3/uL [facility] Basophils/100 WBC (Bld) 0.5 % 0.0 - 2.0 % [facility] Eosinophils (Bld) [#/Vol] 0.4 10*3/uL [facility] Eosinophils/100 WBC (Bld) 3.6 % 0.0 - 6.0 % [facility] Erythrocyte distribution width (RBC) [Ratio] 16.8 % High 11.5 - 14.5 % [facility] Hematocrit (Bld) [Volume fraction] 26.6 % Low 41.0 - 52.0 % [facility] Hemoglobin (Bld) [Mass/Vol] 8.3 g/dL Low 13.5 - 17.5 g/dL [facility] Immature granulocytes (Bld) [#/Vol] 0.04 10*3/uL [facility] Immature granulocytes/100 WBC (Bld) 0.4 % 0.0 - 0.9 % [facility] Interpretation and review of laboratory results Abnormal [facility] Lymphocytes (Bld) [#/Vol] 2.08 10*3/uL [facility] Lymphocytes/100 WBC (Bld) 19 % 13.0 - 44.0 % [facility] MCH (RBC) [Entitic mass] 26.8 pg 26.0 - 34.0 pg [facility] MCHC (RBC) [Mass/Vol] 31.2 g/dL Low 32.0 - 36.0 g/dL [facility] MCV (RBC) [Entitic vol] 86 fL 80 - 100 fL [facility] Monocytes (Bld) [#/Vol] 1.09 10*3/uL High [facility] Monocytes/100 WBC (Bld) 9.9 % 2.0 - 10.0 % [facility] Neutrophils (Bld) [#/Vol] 7.3 10*3/uL [facility] Neutrophils/100 WBC (Bld) 66.6 % 40.0 - 80.0 % [facility] Nucleated RBC/100 WBC (Bld) [Ratio] 0 % [facility] Platelets (Bld) [#/Vol] 639 10*3/uL High [facility] RBC (Bld) [#/Vol] 3.1 10*6/uL Low [facility] WBC (Bld) [#/Vol] 11 10*3/uL [facility] Hepatic function 2000 panelo n 11-17-2024 Albumin BCP dye [Mass/Vol] 3.2 g/dL Low 3.4 - 5.0 g/dL [facility] ALP [Catalytic activity/Vol] 83 U/L 33 - 120 U/L [facility] ALT With P-5'-P [Catalytic activity/Vol] 20 U/L 10 - 52 U/L [facility] AST With P-5'-P [Catalytic activity/Vol] 13 U/L 9 - 39 U/L [facility] Bilirubin [Mass/Vol] 0.3 mg/dL 0.0 - 1 .2 mg/dL [facility] Bilirubin.direct [Mass/Vol] 0 mg/dL 0.0 - 0.3 mg/dL [facility] Protein [Mass/Vol] 7.2 g/dL 6.4 - 8.2 g/dL [facility] Magnesiumon 11-17-2024 Magnesium [Mass/Vol] 2.17 mg/dL 1.60 - 2.40 mg/dL [facility] No Panel Informationon 11-17 Interpretation and review of laboratory results Abnormal [facility] Interpretation and review of laboratory results Normal [facility] Phosphoruson 11-17-2024 Phosphate [Mass/Vol] 3.2 mg/dL 2.5 - 4 .9 mg/dL [facility] Basic metabolic 2000 panelon 11-16-2024 Anion gap [Moles/Vol] 15 mmol/L 10 - 2 0 mmol/L [facility] Calcium [Mass/Vol] 9.2 mg/dL 8.6 - 10. 6 mg/dL [facility] Chloride [Moles/Vol] 103 mmol/L 98 - 10 7 mmol/L [facility] CO2 [Moles/Vol] 22 mmol/L 21 - 32 mmol/L [facility] Creatinine [Mass/Vol] 1.25 mg/dL 0.50 - 1.30 mg/dL [facility] GFR/1.73 sq M.predicted among non-blacks MDRD (S/P/Bld) [Vol rate/Area] 70 mL/min/{1.73_m2} - PINF [facility] Glucose [Mass/Vol] 115 mg/dL High 74 - 99 mg/dL [facility] Interpretation and review of laboratory results Abnormal [facility] Potassium [Moles/Vol] 3.7 mmol/L 3.5 - 5.3 mmol/L [facility] Sodium [Moles/Vol] 136 mmol/L 136 - 145 mmol/L [facility] Urea nitrogen [Mass/Vol] 13 mg/dL 6 - 23 mg/dL [facility] CBC W Auto Differential pane l (Bld)on 11-16-2024 Erythrocyte distribution width (RBC) [Ratio] 16.5 % High 11.5 - 14.5 % [facility] Hematocrit (Bld) [Volume fraction] 26.1 % Low 41.0 - 52.0 % [facility] Hemoglobin (Bld) [Mass/Vol] 8.5 g/dL Low 13.5 - 17.5 g/dL [facility] Immature granulocytes (Bld) [#/Vol] 0.05 10*3/uL [facility] Immature granulocytes/100 WBC (Bld) 0.5 % 0.0 - 0.9 % [facility] MCH (RBC) [Entitic mass] 28.4 pg 26.0 - 34.0 pg [facility] MCHC (RBC) [Mass/Vol] 32.6 g/dL 32.0 - 36.0 g/dL [facility] MCV (RBC) [Entitic vol] 87 fL 80 - 100 fL [facility] Nucleated RBC/100 WBC (Bld) [Ratio] 0 % [facility] Platelets (Bld) [#/Vol] 619 10*3/uL High [facility] RBC (Bld) [#/Vol] 2.99 10*6/uL Low [facility] WBC (Bld) [#/Vol] 10 10*3/uL [facility] Hepatic function 2000 panelo n 11-16-2024 Albumin BCP dye [Mass/Vol] 3 g/dL Low 3.4 - 5.0 g/dL [facility] ALP [Catalytic activity/Vol] 78 U/L 33 - 120 U/L [facility] ALT With P-5'-P [Catalytic activity/Vol] 17 U/L 10 - 52 U/L [facility] AST With P-5'-P [Catalytic activity/Vol] 11 U/L 9 - 39 U/L [facility] Bilirubin [Mass/Vol] 0.2 mg/dL 0.0 - 1 .2 mg/dL [facility] Bilirubin.direct [Mass/Vol] 0 mg/dL 0.0 - 0.3 mg/dL [facility] Interpretation and review of laboratory results Abnormal [facility] Protein [Mass/Vol] 6.5 g/dL 6.4 - 8.2 g/dL [facility] Magnesiumon 11-16-2024 Magnesium [Mass/Vol] 2.08 mg/dL 1.60 - 2.40 mg/dL [facility] Manual differential performe d Ql (Bld)on 11-16-2024 Basophils (Bld) [#/Vol] 0 10*3/uL [facility] Basophils/100 WBC (Bld) 0 % 0.0 - 2.0 % [facility] Cells Counted Total (Bld) [#] 113 {cells} [facility] Eosinophils (Bld) [#/Vol] 0.26 10*3/uL [facility] Eosinophils/100 WBC (Bld) 2.6 % 0.0 - 6.0 % [facility] Lymphocytes (Bld) [#/Vol] 1.68 10*3/uL [facility] Lymphocytes/100 WBC (Bld) 16.8 % 13.0 - 44.0 % [facility] Monocytes (Bld) [#/Vol] 0.27 10*3/uL [facility] Monocytes/100 WBC (Bld) 2.7 % 2.0 - 10.0 % [facility] RBC morphology finding Nom (Bld) No significant RBC morphology present [facility] Segmented neutrophils (Bld) [#/Vol] 7.79 10*3/uL High [facility] Segmented neutrophils/100 WBC (Bld) 77.9 % 40.0 - 80.0 % [facility] No Panel Informationon 11-16 Interpretation and review of laboratory results Abnormal [facility] Interpretation and review of laboratory results Normal [facility] Phosphoruson 11-16-2024 Phosphate [Mass/Vol] 2.9 mg/dL 2.5 - 4 .9 mg/dL [facility] Bacteria identified Cx Nom ( Unsp spec)Ordered By: Phil Casas on 11-15-2024 Interpretation and review of laboratory results Abnormal [facility] Microscopic observation Gram stain Nom (Unsp spec) No polymorphonuclear leukocytes seen [facility] Microscopic observation Gram stain Nom (Unsp spec) No organisms seen [facility] Biopsyon 11-15-2024 [facility] Work Phone: [facility] Work Phone: CBC W Auto Differential pane l (Bld)on 11-15-2024 Basophils (Bld) [#/Vol] 0.06 10*3/uL [facility] Basophils/100 WBC (Bld) 0.6 % 0.0 - 2.0 % [facility] Eosinophils (Bld) [#/Vol] 0.28 10*3/uL [facility] Eosinophils/100 WBC (Bld) 2.6 % 0.0 - 6.0 % [facility] Erythrocyte distribution width (RBC) [Ratio] 16.4 % High 11.5 - 14.5 % [facility] Hematocrit (Bld) [Volume fraction] 24.9 % Low 41.0 - 52.0 % [facility] Hemoglobin (Bld) [Mass/Vol] 8.1 g/dL Low 13.5 - 17.5 g/dL [facility] Immature granulocytes (Bld) [#/Vol] 0.04 10*3/uL [facility] Immature granulocytes/100 WBC (Bld) 0.4 % 0.0 - 0.9 % [facility] Interpretation and review of laboratory results Abnormal [facility] Lymphocytes (Bld) [#/Vol] 1.3 10*3/uL [facility] Lymphocytes/100 WBC (Bld) 12.2 % 13.0 - 44.0 % [facility] MCH (RBC) [Entitic mass] 26.6 pg 26.0 - 34.0 pg [facility] MCHC (RBC) [Mass/Vol] 32.5 g/dL 32.0 - 36.0 g/dL [facility] MCV (RBC) [Entitic vol] 82 fL 80 - 100 fL [facility] Monocytes (Bld) [#/Vol] 1.04 10*3/uL High [facility] Monocytes/100 WBC (Bld) 9.7 % 2.0 - 10.0 % [facility] Neutrophils (Bld) [#/Vol] 7.95 10*3/uL [facility] Neutrophils/100 WBC (Bld) 74.5 % 40.0 - 80.0 % [facility] Nucleated RBC/100 WBC (Bld) [Ratio] 0 % [facility] Platelets (Bld) [#/Vol] 531 10*3/uL High [facility] RBC (Bld) [#/Vol] 3.04 10*6/uL Low [facility] WBC (Bld) [#/Vol] 10.7 10*3/uL [facility] Hepatic function 2000 panelo n 11-15-2024 Albumin BCP dye [Mass/Vol] 3 g/dL Low 3.4 - 5.0 g/dL [facility] ALP [Catalytic activity/Vol] 80 U/L 33 - 120 U/L [facility] ALT With P-5'-P [Catalytic activity/Vol] 21 U/L 10 - 52 U/L [facility] AST With P-5'-P [Catalytic activity/Vol] 18 U/L 9 - 39 U/L [facility] Bilirubin [Mass/Vol] 0.2 mg/dL 0.0 - 1 .2 mg/dL [facility] Bilirubin.direct [Mass/Vol] 0 mg/dL 0.0 - 0.3 mg/dL [facility] Interpretation and review of laboratory results Abnormal [facility] Protein [Mass/Vol] 6.3 g/dL Low 6.4 - 8.2 g/dL [facility] Magnesiumon 11-15-2024 Magnesium [Mass/Vol] 1.93 mg/dL 1.60 - 2.40 mg/dL [facility] Magnesium [Mass/Vol]on 11-15 Interpretation and review of laboratory results Normal [facility] No Panel Informationon 11-15 [facility] Renal function 2000 panelon 11-15-2024 Albumin BCP dye [Mass/Vol] 2.9 g/dL Low 3.4 - 5.0 g/dL [facility] Anion gap [Moles/Vol] 13 mmol/L 10 - 2 0 mmol/L [facility] Calcium [Mass/Vol] 9.4 mg/dL 8.6 - 10. 6 mg/dL [facility] Chloride [Moles/Vol] 105 mmol/L 98 - 10 7 mmol/L [facility] CO2 [Moles/Vol] 24 mmol/L 21 - 32 mmol/L [facility] Creatinine [Mass/Vol] 1.4 mg/dL High 0.50 - 1.30 mg/dL [facility] GFR/1.73 sq M.predicted among non-blacks MDRD (S/P/Bld) [Vol rate/Area] 61 mL/min/{1.73_m2} - PINF [facility] Glucose [Mass/Vol] 116 mg/dL High 74 - 99 mg/dL [facility] Interpretation and review of laboratory results Abnormal [facility] Phosphate [Mass/Vol] 2.5 mg/dL 2.5 - 4 .9 mg/dL [facility] Potassium [Moles/Vol] 3.7 mmol/L 3.5 - 5.3 mmol/L [facility] Sodium [Moles/Vol] 138 mmol/L 136 - 145 mmol/L [facility] Urea nitrogen [Mass/Vol] 10 mg/dL 6 - 23 mg/dL [facility] Tissue/Wound Culture/SmearOr dered By: Phil Casas on 11-15-2024 Bacteria identified Cx Nom (Unsp spec) (1+) Rare Proteus mirabilis Abnormal [facility] Bacteria identified Cx Nom ( Bld)on 11-14-2024 Interpretation and review of laboratory results Normal [facility] Blood Cultureon 11-14-2024 Bacteria identified Cx Nom (Bld) No growth at 4 days - FIN[facility] [facility] CBC W Auto Differential pane l (Bld)on 11-14-2024 Basophils (Bld) [#/Vol] 0.06 10*3/uL [facility] Basophils/100 WBC (Bld) 0.6 % 0.0 - 2.0 % [facility] Eosinophils (Bld) [#/Vol] 0.4 10*3/uL [facility] Eosinophils/100 WBC (Bld) 4.3 % 0.0 - 6.0 % [facility] Erythrocyte distribution width (RBC) [Ratio] 16.5 % High 11.5 - 14.5 % [facility] Hematocrit (Bld) [Volume fraction] 24.1 % Low 41.0 - 52.0 % [facility] Hemoglobin (Bld) [Mass/Vol] 7.7 g/dL Low 13.5 - 17.5 g/dL [facility] Immature granulocytes (Bld) [#/Vol] 0.05 10*3/uL [facility] Immature granulocytes/100 WBC (Bld) 0.5 % 0.0 - 0.9 % [facility] Interpretation and review of laboratory results Abnormal [facility] Lymphocytes (Bld) [#/Vol] 1.02 10*3/uL Low [facility] Lymphocytes/100 WBC (Bld) 11 % 13.0 - 44.0 % [facility] MCH (RBC) [Entitic mass] 27.6 pg 26.0 - 34.0 pg [facility] MCHC (RBC) [Mass/Vol] 32 g/dL 32.0 - 36.0 g/dL [facility] MCV (RBC) [Entitic vol] 86 fL 80 - 100 fL [facility] Monocytes (Bld) [#/Vol] 1.05 10*3/uL High [facility] Monocytes/100 WBC (Bld) 11.4 % 2.0 - 10.0 % [facility] Neutrophils (Bld) [#/Vol] 6.67 10*3/uL [facility] Neutrophils/100 WBC (Bld) 72.2 % 40.0 - 80.0 % [facility] Nucleated RBC/100 WBC (Bld) [Ratio] 0 % [facility] Platelets (Bld) [#/Vol] 507 10*3/uL High [facility] RBC (Bld) [#/Vol] 2.79 10*6/uL Low [facility] WBC (Bld) [#/Vol] 9.3 10*3/uL [facility] Calcium (24H U) [Mass/Time]o n 11-14-2024 Calcium, 24 Hour Urine 384 [facility] (Unsp spec) 24 hrs [facility] Creatinine (24H U) [Mass/Time] 1.62 [facility] Creatinine (24H U) [Mass/Vol] 52.3 mg/dL 20.0 - 370.0 mg/dL [facility] Interpretation and review of laboratory results Abnormal [facility] Specimen volume (24H U) 3.1 L [facility] Calcium, 24 Hour Urineon Calcium (24H U) [Mass/Time] 12.4 mg/dL [facility] Cobalamin (Vitamin B12) [Mas s/Vol]on 11-14-2024 Interpretation and review of laboratory results Normal [facility] Comprehensive metabolic 2000 panelon 11-14-2024 Albumin BCP dye [Mass/Vol] 2.7 g/dL Low 3.4 - 5.0 g/dL [facility] ALP [Catalytic activity/Vol] 80 U/L 33 - 120 U/L [facility] ALT With P-5'-P [Catalytic activity/Vol] 17 U/L 10 - 52 U/L [facility] Anion gap [Moles/Vol] 13 mmol/L 10 - 2 0 mmol/L [facility] AST With P-5'-P [Catalytic activity/Vol] 15 U/L 9 - 39 U/L [facility] Bilirubin [Mass/Vol] 0.3 mg/dL 0.0 - 1 .2 mg/dL [facility] Calcium [Mass/Vol] 9.1 mg/dL 8.6 - 10. 6 mg/dL [facility] Chloride [Moles/Vol] 107 mmol/L 98 - 10 7 mmol/L [facility] CO2 [Moles/Vol] 22 mmol/L 21 - 32 mmol/L [facility] Creatinine [Mass/Vol] 1.38 mg/dL High 0.50 - 1.30 mg/dL [facility] GFR/1.73 sq M.predicted among non-blacks MDRD (S/P/Bld) [Vol rate/Area] 62 mL/min/{1.73_m2} - PINF [facility] Glucose [Mass/Vol] 97 mg/dL 74 - 99 mg/dL [facility] Interpretation and review of laboratory results Abnormal [facility] Potassium [Moles/Vol] 3.8 mmol/L 3.5 - 5.3 mmol/L [facility] Protein [Mass/Vol] 5.9 g/dL Low 6.4 - 8.2 g/dL [facility] Sodium [Moles/Vol] 138 mmol/L 136 - 145 mmol/L [facility] Urea nitrogen [Mass/Vol] 8 mg/dL 6 - 23 mg/dL [facility] Folateon 11-14-2024 Folate [Mass/Vol] 4.6 ng/mL Low 5.0 - PINF ng/mL [facility] Folate [Mass/Vol]on 11-14-19 Interpretation and review of laboratory results Abnormal [facility] IgAon 11-14-2024 IgA [Mass/Vol] 503 mg/dL High 70 - 400 mg/dL [facility] Work Phone: IgA [Mass/Vol]on 11-14-2024 Interpretation and review of laboratory results Abnormal [facility] Work Phone: [facility] Work Phone: IgGOrdered By: Ruba guy on 11-14-2024 IgG [Mass/Vol] 1160 mg/dL 700 - 1600 mg/dL [facility] IgG [Mass/Vol]Ordered By: Nik Abel on 11-14-2024 Interpretation and review of laboratory results Normal [facility] IgMon 11-14-2024 IgM [Mass/Vol] 60 mg/dL 40 - 230 mg/dL [facility] Work Phone: IgM [Mass/Vol]on 11-14-2024 Interpretation and review of laboratory results Normal [facility] Work Phone: [facility] Work Phone: M. tuberculosis stim IFN-g a nd spot count panel (Bld)on 11-14-2024 Gamma interferon negative control spot count (Bld) [#] Passed [facility] M. tuberculosis stim IFN-g CFP10 Ag spot count (Bld) [#] 4 [facility] M. tuberculosis stim IFN-g ESAT-6 Ag spot count (Bld) [#] 0 [facility] M. tuberculosis stim IFN-g Ql (Bld) [Interp] Negative Negative [facility] Mitogen stimulated gamma interferon positive control spot count (Bld) [#] Passed [facility] Magnesiumon 11-14-2024 Magnesium [Mass/Vol] 1.78 mg/dL 1.60 - 2.40 mg/dL [facility] Magnesium [Mass/Vol]on 11-14 Interpretation and review of laboratory results Normal [facility] No Panel Informationon 11-14 [facility] PTH-Related Peptideon 2024 Parathyrin related protein [Moles/Vol] 12 pmol/L High < or = 4.2 [facility] Parathyrin related protein [ Moles/Vol]on 11-14-2024 Interpretation and review of laboratory results Abnormal [facility] Pathologist review Pathologi st comment (Bld) [Interp]Ordered By: Jose C Hensley on 11-14-2024 Pathologist Review-CBC Differential Thrombocytosis favor reactive. Anemia with no specific morphologic findings. [facility] Work Phone: [facility] Work Phone: Vitamin B12on 11-14-2024 Cobalamin (Vitamin B12) [Mass/Vol] 328 pg/mL 211 - 911 pg/mL [facility] 1,25-dihydroxyvitamin D3 [Ma ss/Vol]on 11-13-2024 1,25-dihydroxyvitamin D [Mass/Vol] 35.9 pg/mL 19.9 - 79.3 pg/mL [facility] Blood type and Indirect anti body screen panel (Bld)on 11-13-2024 ABO group Nom (Bld) [facility] screen Ql Negative [facility] D Ag Ql (Bld) Positive [facility] CBC W Auto Differential pane l (Bld)Ordered By: Seble Tate on 11-13-2024 Basophils (Bld) [#/Vol] 0.02 10*3/uL [facility] Basophils/100 WBC (Bld) 0.4 % 0.0 - 2.0 % [facility] Eosinophils (Bld) [#/Vol] 0.2 10*3/uL [facility] Eosinophils/100 WBC (Bld) 3.6 % 0.0 - 6.0 % [facility] Erythrocyte distribution width (RBC) [Ratio] 16.7 % High 11.5 - 14.5 % [facility] Hematocrit (Bld) [Volume fraction] 16 % Low 41.0 - 52.0 % [facility] Hemoglobin (Bld) [Mass/Vol] 4.9 g/dL Critically low 13.5 - 17.5 g/dL [facility] Immature granulocytes (Bld) [#/Vol] 0.01 10*3/uL [facility] Immature granulocytes/100 WBC (Bld) 0.2 % 0.0 - 0.9 % [facility] Interpretation and review of laboratory results Abnormal [facility] Lymphocytes (Bld) [#/Vol] 0.4 10*3/uL Low [facility] Lymphocytes/100 WBC (Bld) 7.1 % 13.0 - 44.0 % [facility] MCH (RBC) [Entitic mass] 28.3 pg 26.0 - 34.0 pg [facility] MCHC (RBC) [Mass/Vol] 30.6 g/dL Low 32.0 - 36.0 g/dL [facility] MCV (RBC) [Entitic vol] 93 fL 80 - 100 fL [facility] Monocytes (Bld) [#/Vol] 0.55 10*3/uL [facility] Monocytes/100 WBC (Bld) 9.8 % 2.0 - 10.0 % [facility] Neutrophils (Bld) [#/Vol] 4.44 10*3/uL [facility] Neutrophils/100 WBC (Bld) 78.9 % 40.0 - 80.0 % [facility] Nucleated RBC/100 WBC (Bld) [Ratio] 0 % [facility] Platelets (Bld) [#/Vol] 306 10*3/uL [facility] RBC (Bld) [#/Vol] 1.73 10*6/uL Low [facility] WBC (Bld) [#/Vol] 5.6 10*3/uL [facility] CBC W Auto Differential pane l (Bld)on 11-13-2024 Basophils (Bld) [#/Vol] 0.07 10*3/uL [facility] Basophils/100 WBC (Bld) 0.6 % 0.0 - 2.0 % [facility] Eosinophils (Bld) [#/Vol] 0.44 10*3/uL [facility] Eosinophils/100 WBC (Bld) 3.9 % 0.0 - 6.0 % [facility] Erythrocyte distribution width (RBC) [Ratio] 16.6 % High 11.5 - 14.5 % [facility] Hematocrit (Bld) [Volume fraction] 26.2 % Low 41.0 - 52.0 % [facility] Hemoglobin (Bld) [Mass/Vol] 8.3 g/dL Low 13.5 - 17.5 g/dL [facility] Immature granulocytes (Bld) [#/Vol] 0.11 10*3/uL [facility] Immature granulocytes/100 WBC (Bld) 1 % High 0.0 - 0.9 % [facility] Interpretation and review of laboratory results Abnormal [facility] Lymphocytes (Bld) [#/Vol] 1.43 10*3/uL [facility] Lymphocytes/100 WBC (Bld) 12.8 % 13.0 - 44.0 % [facility] MCH (RBC) [Entitic mass] 27.9 pg 26.0 - 34.0 pg [facility] MCHC (RBC) [Mass/Vol] 31.7 g/dL Low 32.0 - 36.0 g/dL [facility] MCV (RBC) [Entitic vol] 88 fL 80 - 100 fL [facility] Monocytes (Bld) [#/Vol] 1.07 10*3/uL High [facility] Monocytes/100 WBC (Bld) 9.6 % 2.0 - 10.0 % [facility] Neutrophils (Bld) [#/Vol] 8.02 10*3/uL High [facility] Neutrophils/100 WBC (Bld) 72.1 % 40.0 - 80.0 % [facility] Nucleated RBC/100 WBC (Bld) [Ratio] 0 % [facility] Platelets (Bld) [#/Vol] 576 10*3/uL High [facility] RBC (Bld) [#/Vol] 2.97 10*6/uL Low [facility] WBC (Bld) [#/Vol] 11.1 10*3/uL [facility] CBC panel Auto (Bld)on 11-13 Erythrocyte distribution width (RBC) [Ratio] 16.4 % High 11.5 - 14.5 % [facility] Hematocrit (Bld) [Volume fraction] 25.5 % Low 41.0 - 52.0 % [facility] Hemoglobin (Bld) [Mass/Vol] 8.2 g/dL Low 13.5 - 17.5 g/dL [facility] Interpretation and review of laboratory results Abnormal [facility] MCH (RBC) [Entitic mass] 27.8 pg 26.0 - 34.0 pg [facility] MCHC (RBC) [Mass/Vol] 32.2 g/dL 32.0 - 36.0 g/dL [facility] MCV (RBC) [Entitic vol] 86 fL 80 - 100 fL [facility] Nucleated RBC/100 WBC (Bld) [Ratio] 0 % [facility] Platelets (Bld) [#/Vol] 570 10*3/uL High [facility] RBC (Bld) [#/Vol] 2.95 10*6/uL Low [facility] WBC (Bld) [#/Vol] 9.4 10*3/uL [facility] Calcium, ionizedon Calcium.ionized (Bld) [Moles/Vol] 1.06 mmol/L Low 1.1 - 1.33 mmol/L [facility] Calcium.ionized (Bld) [Moles /Vol]on 11-13-2024 Interpretation and review of laboratory results Abnormal [facility] Comprehensive metabolic 2000 panelon 11-13-2024 Albumin BCP dye [Mass/Vol] 2.8 g/dL Low 3.4 - 5.0 g/dL [facility] ALP [Catalytic activity/Vol] 89 U/L 33 - 120 U/L [facility] ALT With P-5'-P [Catalytic activity/Vol] 17 U/L 10 - 52 U/L [facility] Anion gap [Moles/Vol] 11 mmol/L 10 - 2 0 mmol/L [facility] AST With P-5'-P [Catalytic activity/Vol] 15 U/L 9 - 39 U/L [facility] Bilirubin [Mass/Vol] 0.3 mg/dL 0.0 - 1 .2 mg/dL [facility] Calcium [Mass/Vol] 9.8 mg/dL 8.6 - 10. 6 mg/dL [facility] Chloride [Moles/Vol] 108 mmol/L High 98 - 10 7 mmol/L [facility] CO2 [Moles/Vol] 23 mmol/L 21 - 32 mmol/L [facility] Creatinine [Mass/Vol] 1.4 mg/dL High 0.50 - 1.30 mg/dL [facility] GFR/1.73 sq M.predicted among non-blacks MDRD (S/P/Bld) [Vol rate/Area] 61 mL/min/{1.73_m2} - PINF [facility] Glucose [Mass/Vol] 117 mg/dL High 74 - 99 mg/dL [facility] Interpretation and review of laboratory results Abnormal [facility] Potassium [Moles/Vol] 3.6 mmol/L 3.5 - 5.3 mmol/L [facility] Protein [Mass/Vol] 5.9 g/dL Low 6.4 - 8.2 g/dL [facility] Sodium [Moles/Vol] 138 mmol/L 136 - 145 mmol/L [facility] Urea nitrogen [Mass/Vol] 9 mg/dL 6 - 23 mg/dL [facility] Albumin BCP dye [Mass/Vol] 2.8 g/dL Low 3.4 - 5.0 g/dL [facility] ALP [Catalytic activity/Vol] 79 U/L 33 - 120 U/L [facility] ALT With P-5'-P [Catalytic activity/Vol] 16 U/L 10 - 52 U/L [facility] Anion gap [Moles/Vol] 12 mmol/L 10 - 2 0 mmol/L [facility] AST With P-5'-P [Catalytic activity/Vol] 13 U/L 9 - 39 U/L [facility] Bilirubin [Mass/Vol] 0.4 mg/dL 0.0 - 1 .2 mg/dL [facility] Calcium [Mass/Vol] 11.1 mg/dL High 8.6 - 10. 6 mg/dL [facility] Chloride [Moles/Vol] 106 mmol/L 98 - 10 7 mmol/L [facility] CO2 [Moles/Vol] 25 mmol/L 21 - 32 mmol/L [facility] Creatinine [Mass/Vol] 1.41 mg/dL High 0.50 - 1.30 mg/dL [facility] GFR/1.73 sq M.predicted among non-blacks MDRD (S/P/Bld) [Vol rate/Area] 60 mL/min/{1.73_m2} Low - PINF [facility] Glucose [Mass/Vol] 106 mg/dL High 74 - 99 mg/dL [facility] Potassium [Moles/Vol] 3.7 mmol/L 3.5 - 5.3 mmol/L [facility] Protein [Mass/Vol] 6.2 g/dL Low 6.4 - 8.2 g/dL [facility] Sodium [Moles/Vol] 139 mmol/L 136 - 145 mmol/L [facility] Urea nitrogen [Mass/Vol] 9 mg/dL 6 - 23 mg/dL [facility] Gas panel (BldV)on Anion gap 4 (BldV) [Moles/Vol] 9 mmol/L Low 10.0 - 25.0 mmol/L [facility] Base excess Calc (BldV) [Moles/Vol] -1.8000 mmol/L -2.0 - 3.0 mmol/L [facility] Calcium.ionized (BldV) [Moles/Vol] 1.43 mmol/L High 1.10 - 1.33 mmol/L [facility] Chloride (BldV) [Moles/Vol] 110 mmol/L High 98 - 107 mmol/L [facility] CO2 (BldV) [Partial pressure] 29 mm[Hg] Low [facility] Glucose [Mass/Vol] 130 mg/dL High 74 - 99 mg/dL [facility] HCO3 (Bld) [Moles/Vol] 21.6 mmol/L Low 22.0 - 26.0 mmol/L [facility] Hematocrit Est (Bld) [Volume fraction] 16 % Low 41.0 - 52.0 % [facility] Hemoglobin (Bld) [Mass/Vol] 5.3 g/dL Critically low 13.5 - 17.5 g/dL [facility] Inhaled oxygen concentration 21 % [facility] Interpretation and review of laboratory results Abnormal [facility] Lactate (BldV) [Moles/Vol] 1.5 mmol/L 0.4 - 2.0 mmol/L [facility] Oxygen (BldV) [Partial pressure] 75 mm[Hg] High [facility] Oxygen saturation in Venous blood 99 % High 45 - 75 % [facility] Oxyhemoglobin (BldV) [Mass fraction] 96 % High 45.0 - 75.0 % [facility] pH (BldV) 7.48 [pH] High 7.33 - 7.43 pH [facility] Potassium (BldV) [Moles/Vol] 3.8 mmol/L 3.5 - 5.3 mmol/L [facility] Sodium (BldV) [Moles/Vol] 137 mmol/L 136 - 145 mmol/L [facility] Glucose Test strip manual (B ld) [Mass/Vol]on 11-13-2024 Glucose [Mass/Vol] 96 mg/dL 74 - 99 mg/dL [facility] Interpretation and review of laboratory results Normal [facility] Haptoglobinon 11-13-2024 Haptoglobin Nephelometry [Mass/Vol] 319 mg/dL High 30 - 200 mg/dL [facility] Haptoglobin Nephelometry [Ma ss/Vol]on 11-13-2024 Interpretation and review of laboratory results Abnormal [facility] Hepatic function 2000 panelo n 11-13-2024 Albumin BCP dye [Mass/Vol] 2.8 g/dL Low 3.4 - 5.0 g/dL [facility] ALP [Catalytic activity/Vol] 89 U/L 33 - 120 U/L [facility] ALT With P-5'-P [Catalytic activity/Vol] 17 U/L 10 - 52 U/L [facility] AST With P-5'-P [Catalytic activity/Vol] 15 U/L 9 - 39 U/L [facility] Bilirubin [Mass/Vol] 0.3 mg/dL 0.0 - 1 .2 mg/dL [facility] Bilirubin.direct [Mass/Vol] 0.1 mg/dL 0.0 - 0.3 mg/dL [facility] Interpretation and review of laboratory results Abnormal [facility] Protein [Mass/Vol] 5.9 g/dL Low 6.4 - 8.2 g/dL [facility] Lactateon 11-13-2024 Lactate [Moles/Vol] 1.5 mmol/L 0.4 - 2. 0 mmol/L [facility] Lactate Dehydrogenaseon 10-20 LDH Lactate to pyruvate reaction [Catalytic activity/Vol] 62 U/L Low 84 - 246 U/L [facility] Lactate [Moles/Vol]on 2024 Interpretation and review of laboratory results Normal [facility] Magnesiumon 11-13-2024 Magnesium [Mass/Vol] 1.23 mg/dL Low 1.60 - 2.40 mg/dL [facility] Magnesium [Mass/Vol] 1.86 mg/dL 1.60 - 2.40 mg/dL [facility] Magnesium [Mass/Vol]on 11-13 Interpretation and review of laboratory results Abnormal [facility] Interpretation and review of laboratory results Normal [facility] No Panel Informationon 11-13 Interpretation and review of laboratory results Abnormal [facility] Interpretation and review of laboratory results Abnormal [facility] Phosphate [Mass/Vol]on 11-13 Interpretation and review of laboratory results Normal [facility] Phosphoruson 11-13-2024 Phosphate [Mass/Vol] 3 mg/dL 2.5 - 4 .9 mg/dL [facility] Renal function 2000 panelon 11-13-2024 Albumin BCP dye [Mass/Vol] 2.1 g/dL Low 3.4 - 5.0 g/dL [facility] Anion gap [Moles/Vol] 9 mmol/L [facility] Calcium [Mass/Vol] 7.4 mg/dL Low 8.6 - 10. 6 mg/dL [facility] Chloride [Moles/Vol] 120 mmol/L High 98 - 10 7 mmol/L [facility] CO2 [Moles/Vol] 17 mmol/L Low 21 - 32 mmol/L [facility] Creatinine [Mass/Vol] 0.93 mg/dL 0.50 - 1.30 mg/dL [facility] eGFR - PINF [facility] Glucose [Mass/Vol] 83 mg/dL 74 - 99 mg/dL [facility] Phosphate [Mass/Vol] 1.6 mg/dL Low 2.5 - 4 .9 mg/dL [facility] Potassium [Moles/Vol] 2.7 mmol/L Critically low 3.5 - 5.3 mmol/L [facility] Sodium [Moles/Vol] 143 mmol/L 136 - 145 mmol/L [facility] Urea nitrogen [Mass/Vol] 6 mg/dL 6 - 23 mg/dL [facility] Reticulocytes panel (Bld)on 11-13-2024 Hemoglobin (Reticulocytes) [Entitic mass] 24 pg Low 28 - 38 pg [facility] Immature Retic fraction 15.5 % NINF - 16.0 % [facility] Interpretation and review of laboratory results Abnormal [facility] Reticulocytes (Bld) [#/Vol] 0.023 10*3/uL [facility] Reticulocytes/100 RBC (Bld) 1.3 % 0.5 - 2.0 % [facility] Serum Protein Electrophoresi s + ImmunofixationOrdered By: [place] on 11-13-2024 Albumin [Mass/Vol] 2.9 g/dL Low 3.4 - 5.0 g/dL [facility] Work Phone: [phone] Alpha 1 Globulin 0.5 g/dL 0.2 - 0.6 g/dL [facility] Work Phone: 136 Alpha 2 Globulin 0.9 g/dL 0.4 - 1.1 g/dL [facility] Work Phone: 136 Beta Globulin 1 g/dL 0.5 - 1.2 g/dL [facility] Work Phone: 136 Gamma 1.1 g/dL 0.5 - 1.4 g/dL [facility] Work Phone: 136 Immunofixation Comment Un [facility] Work Phone: 136 Interpretation and review of laboratory results Abnormal [facility] Work Phone: 136 Path Review - Serum Immunofixation [facility] Work Phone: 136 Path Review - Serum Protein Electrophoresis [facility] Work Phone: 136 Protein [Mass/Vol] 0.2 g/dL [facility] Work Phone: 136 Protein Electrophoresis Comment [facility] Work Phone: [facility] Work Phone: Slide Requeston 11-13-2024 [facility] Work Phone: TSH with reflex to Free T4 i f abnormalon 11-13-2024 Interpretation and review of laboratory results Normal [facility] TSH Qn 1.25 m[IU]/L [facility] Vancomycinon 11-13-2024 Vancomycin [Mass/Vol] 26.4 ug/mL High 5.0 - 20.0 ug/mL [facility] Vancomycin [Mass/Vol]on 10-20 [facility] Biopsyon 11-12-2024 [facility] Work Phone: [facility] Work Phone: CBC W Auto Differential pane l (Bld)on 11-12-2024 Basophils (Bld) [#/Vol] 0.07 10*3/uL [facility] Basophils/100 WBC (Bld) 0.6 % 0.0 - 2.0 % [facility] Eosinophils (Bld) [#/Vol] 0.55 10*3/uL [facility] Eosinophils/100 WBC (Bld) 4.8 % 0.0 - 6.0 % [facility] Erythrocyte distribution width (RBC) [Ratio] 16.7 % High 11.5 - 14.5 % [facility] Hematocrit (Bld) [Volume fraction] 27.2 % Low 41.0 - 52.0 % [facility] Hemoglobin (Bld) [Mass/Vol] 8.2 g/dL Low 13.5 - 17.5 g/dL [facility] Immature granulocytes (Bld) [#/Vol] 0.04 10*3/uL [facility] Immature granulocytes/100 WBC (Bld) 0.3 % 0.0 - 0.9 % [facility] Interpretation and review of laboratory results Abnormal [facility] Lymphocytes (Bld) [#/Vol] 1.73 10*3/uL [facility] Lymphocytes/100 WBC (Bld) 15.1 % 13.0 - 44.0 % [facility] MCH (RBC) [Entitic mass] 27 pg 26.0 - 34.0 pg [facility] MCHC (RBC) [Mass/Vol] 30.1 g/dL Low 32.0 - 36.0 g/dL [facility] MCV (RBC) [Entitic vol] 90 fL 80 - 100 fL [facility] Monocytes (Bld) [#/Vol] 1.26 10*3/uL High [facility] Monocytes/100 WBC (Bld) 11 % 2.0 - 10.0 % [facility] Neutrophils (Bld) [#/Vol] 7.8 10*3/uL High [facility] Neutrophils/100 WBC (Bld) 68.2 % 40.0 - 80.0 % [facility] Nucleated RBC/100 WBC (Bld) [Ratio] 0 % [facility] Platelets (Bld) [#/Vol] 576 10*3/uL High [facility] RBC (Bld) [#/Vol] 3.04 10*6/uL Low [facility] WBC (Bld) [#/Vol] 11.5 10*3/uL [facility] Comprehensive metabolic 2000 panelon 11-12-2024 Albumin BCP dye [Mass/Vol] 2.9 g/dL Low 3.4 - 5.0 g/dL [facility] ALP [Catalytic activity/Vol] 73 U/L 33 - 120 U/L [facility] ALT With P-5'-P [Catalytic activity/Vol] 12 U/L 10 - 52 U/L [facility] Anion gap [Moles/Vol] 13 mmol/L 10 - 2 0 mmol/L [facility] AST With P-5'-P [Catalytic activity/Vol] 7 U/L Low 9 - 39 U/L [facility] Bilirubin [Mass/Vol] 0.3 mg/dL 0.0 - 1 .2 mg/dL [facility] Calcium [Mass/Vol] 11.4 mg/dL High 8.6 - 10. 6 mg/dL [facility] Chloride [Moles/Vol] 107 mmol/L 98 - 10 7 mmol/L [facility] CO2 [Moles/Vol] 23 mmol/L 21 - 32 mmol/L [facility] Creatinine [Mass/Vol] 1.49 mg/dL High 0.50 - 1.30 mg/dL [facility] GFR/1.73 sq M.predicted among non-blacks MDRD (S/P/Bld) [Vol rate/Area] 56 mL/min/{1.73_m2} Low - PINF [facility] Glucose [Mass/Vol] 93 mg/dL 74 - 99 mg/dL [facility] Interpretation and review of laboratory results Abnormal [facility] Potassium [Moles/Vol] 3.6 mmol/L 3.5 - 5.3 mmol/L [facility] Protein [Mass/Vol] 6.1 g/dL Low 6.4 - 8.2 g/dL [facility] Sodium [Moles/Vol] 139 mmol/L 136 - 145 mmol/L [facility] Urea nitrogen [Mass/Vol] 11 mg/dL 6 - 23 mg/dL [facility] HCV RNA panel MERON+probeOrder ed By: Cassandra Guzmán on 11-12-2024 HCV RNA MERON+probe [Log units/Vol] [facility] HCV RNA MERON+probe Qn Not detected Not detected [facility] Magnesiumon 11-12-2024 Magnesium [Mass/Vol] 1.91 mg/dL 1.60 - 2.40 mg/dL [facility] Magnesium [Mass/Vol]on 11-12 Interpretation and review of laboratory results Normal [facility] No Panel Informationon 11-12 [facility] Comprehensive metabolic 2000 panelon 11-11-2024 Albumin BCP dye [Mass/Vol] 2.8 g/dL Low 3.4 - 5.0 g/dL [facility] ALP [Catalytic activity/Vol] 71 U/L 33 - 120 U/L [facility] ALT With P-5'-P [Catalytic activity/Vol] 9 U/L Low 10 - 52 U/L [facility] Anion gap [Moles/Vol] 9 mmol/L Low 10 - 2 0 mmol/L [facility] AST With P-5'-P [Catalytic activity/Vol] 6 U/L Low 9 - 39 U/L [facility] Bilirubin [Mass/Vol] 0.3 mg/dL 0.0 - 1 .2 mg/dL [facility] Calcium [Mass/Vol] 11.2 mg/dL High 8.6 - 10. 6 mg/dL [facility] Chloride [Moles/Vol] 108 mmol/L High 98 - 10 7 mmol/L [facility] CO2 [Moles/Vol] 26 mmol/L 21 - 32 mmol/L [facility] Creatinine [Mass/Vol] 1.4 mg/dL High 0.50 - 1.30 mg/dL [facility] GFR/1.73 sq M.predicted among non-blacks MDRD (S/P/Bld) [Vol rate/Area] 61 mL/min/{1.73_m2} - PINF [facility] Glucose [Mass/Vol] 101 mg/dL High 74 - 99 mg/dL [facility] Potassium [Moles/Vol] 3.8 mmol/L 3.5 - 5.3 mmol/L [facility] Protein [Mass/Vol] 5.6 g/dL Low 6.4 - 8.2 g/dL [facility] Sodium [Moles/Vol] 139 mmol/L 136 - 145 mmol/L [facility] Urea nitrogen [Mass/Vol] 11 mg/dL 6 - 23 mg/dL [facility] HBV core Ab Ql (S)on 025 Interpretation and review of laboratory results Normal [facility] HBV surface Ab Qn (S)on 10-20 Interpretation and review of laboratory results Normal [facility] HBV surface Ag IA Qlon 11-11 Interpretation and review of laboratory results Normal [facility] HIV 1+2 Ab+HIV1 p24 Ag IA Ql on 11-11-2024 Interpretation and review of laboratory results [facility] HIV 1/2 Antigen/Antibody Scr een with Reflex to Confirmationon 11-11-2024 HIV 1+2 Ab+HIV1 p24 Ag IA Ql Non-Reactive Nonreactive [facility] Hepatitis B Core Antibody, T otalon 11-11-2024 HBV core Ab Ql (S) Non-Reactive Nonreactive [facility] Hepatitis B surface antibody on 11-11-2024 HBV surface Ab Qn (S) NINF [facility] Hepatitis B surface antigeno n 11-11-2024 HBV surface Ag IA Ql Non-Reactive [facility] Magn[facility]on 11-11-2024 Magnesium [Mass/Vol] 1.98 mg/dL 1.60 - 2.40 mg/dL [facility] Magnesium [Mass/Vol]on 11-11 Interpretation and review of laboratory results Normal [facility] No Panel Informationon 11-11 Interpretation and review of laboratory results Abnormal [facility] Phosphoruson 11-11-2024 Phosphate [Mass/Vol] 2.7 mg/dL 2.5 - 4 .9 mg/dL [facility] Urine Protein Electrophoresi son 11-11-2024 Albumin Elph (U) [Mass fraction] 16.4 % [facility] Work Phone: Alpha 1 globulin Elph (U) [Mass fraction] 29.9 % [facility] Work Phone: Alpha 2 globulin Elph (U) [Mass fraction] 9.4 % [facility] Work Phone: Beta globulin Elph (U) [Mass fraction] 21.8 % [facility] Work Phone: Gamma globulin Elph (U) [Mass fraction] 22.5 % [facility] Work Phone: Path Review-Urine Protein Electrophoresis [facility] Work Phone: Urine Electrophoresis Comment Normal. [facility] Work Phone: [facility] Work Phone: Vancomycinon 11-11-2024 Vancomycin [Mass/Vol] 27 ug/mL High 5.0 - 20.0 ug/mL [facility] Vancomycin [Mass/Vol]on 10-20 [facility] ECG 12-LEADon 11-10-2024 ECG 12-LEAD Ventricular Rate 77 Atrial Rate 77 P-R Interval 146 QRS Duration 108 Q-T Interval 368 QTC Calculation(Bazett) 416 P [place] 55 R [place] 72 T [place] 66 QRS Count 13 Q Onset 211 [...] Villa ([id number]) on 11/28/2024 9:05:21 AM Normal [facility] 30on 11-09-2024 30 Problem: Knowledge Deficit Goal: Patient/family/caregiver demonstrates understanding [...] discharge needs are met Outcome: Progressing Normal [facility] CBC W Auto Differential pane l (Bld)Ordered By: Marysol El on 11-09-2024 Erythrocyte distribution width (RBC) [Ratio] 16.4 % High 11.5 - 15.0 % [facility] Hematocrit (Bld) [Volume fraction] 27.7 % Low 40.0 - 52.0 % [facility] Hemoglobin (Bld) [Mass/Vol] 8.8 g/dL Low 13.0 - 18.0 g/dL [facility] Interpretation and review of laboratory results Abnormal [facility] MCH (RBC) [Entitic mass] 27.7 pg 26.0 - 34.0 pg [facility] MCHC (RBC) [Mass/Vol] 31.8 % 30.5 - 36.0 % [facility] MCV (RBC) [Entitic vol] 87.1 fL 77.0 - 99.0 fL [facility] Platelet mean volume (Bld) [Entitic vol] 8.8 fL Low 9.0 - 12.7 fL [facility] Platelets (Bld) [#/Vol] 524 10*3/uL High 140 - 440 10*3/uL [facility] RBC (Bld) [#/Vol] 3.18 10*6/uL Low 4.40 - 5.9 0 10*6/uL [facility] WBC (Bld) [#/Vol] 13 10*3/uL High 3.6 - 10.7 10*3/uL [facility] CBC WITH AUTO DIFFERENTIALon 11-09-2024 Erythrocyte distribution width (RBC) [Ratio] 16.4 % High 11.5-15.0 [facility] Comment on above: Performed By: #### L [id number], [id number] ####Automation Technician: JAZLYN JIMENEZ ([id number])[address] Hematocrit (Bld) [Volume fraction] 27.7 % Low 40.0-52.0 [facility] Comment on above: Performed By: #### Kamila [id number], [id number] ####Automation Technician: JAZLYN JIMENEZ ([id number])[address] Hemoglobin (Bld) [Mass/Vol] 8.8 g/dL Low 13.0-18.0 [facility] Comment on above: Performed By: #### L [id number], [id number] ####Automation Technician: JAZLYN JIMENEZ ([id number])[address] MCH (RBC) [Entitic mass] 27.7 pg Normal 26.0-34.0 [facility] Comment on above: Performed By: #### L [id number], [id number] ####Automation Technician: JAZLYN [id number])[address] MCHC 31.8 % Normal 30.5-36.0 [facility] Comment on above: Performed By: #### L [id number], [id number] ####Automation Technician: JAZLYN [id number])[facility] ([facility])[address] [place] [address] MCV (RBC) [Entitic vol] 87.1 fL Normal 77.0-99.0 [facility] Comment on above: Performed By: #### L [id number], [id number] ####Automation Technician: JAZLYN JIMENEZ ([id number])[facility])[address] [place] [address] Platelet mean volume (Bld) [Entitic vol] 8.8 fL Low 9.0-12.7 [facility] Comment on above: Performed By: #### L [id number], [id number] ####Automation Technician: JAZLYN JIMENEZ ([id number])[facility])[address] [place] [address] Platelets (Bld) [#/Vol] 524 10*3/uL High 140-440 [facility] Comment on above: Performed By: #### L [id number], [id number] ####Automation Technician: JAZLYN JIMENEZ ([id number])[facility] ([facility])[address] [place] [address] RBC (Bld) [#/Vol] 3.18 10*6/uL Low 4.40-5.90 [facility] Comment on above: Performed By: #### L [id number], [id number] ####Automation Technician: JAZLYN JIMENEZ ([id number])[facility])[address] [place] [address] WBC (Bld) [#/Vol] 13.0 10*3/uL High 3.6-10.7 [facility] Comment on above: Performed By: #### L [id number], [id number] ####Automation Technician: JAZLYN JIMENEZ ([id number])[facility])[address] [place] [address] COMPREHENSIVE METABOLIC PANE Yuriy 11-09-2024 Albumin [Mass/Vol] 2.5 g/dL Low 3.5-5.0 [facility] Comment on above: Performed By: #### L [id number] ####Automation Technician: JAZLYN JIMENEZ ([id number])[facility] ([facility])[address] [place] [address] ALP [Catalytic activity/Vol] 70 U/L Normal 40-150 [facility] Comment on above: Performed By: #### L [id number] ####Automation Technician: JAZLYN JIMENEZ ([id number])[facility] ([facility])[address] [place] [address] [place] ALT [Catalytic activity/Vol] U/L Normal <40 [facility] Comment on above: Performed By: #### L [id number] ####Automation Technician: JAZLYN JIMENEZ ([id number])[facility] ([facility])[address] [place] [address] Anion gap [Moles/Vol] 6 mmol/L Normal 3-13 [facility] Comment on above: Performed By: #### L [id number] ####Automation Technician: JAZLYN JIMENEZ ([id number])[facility] ([facility])[address] [place] [address] AST [Catalytic activity/Vol] 11 U/L Normal <34 [facility] Comment on above: Performed By: #### L [id number] ####Automation Technician: JAZLYN JIMENEZ ([id number])[facility] ([facility])[address] [place] [address] Bilirubin [Mass/Vol] 0.4 mg/dL Normal <1.2 [facility] Comment on above: Performed By: #### L [id number] ####Automation Technician: JAZLYN JIMENEZ ([id number])[facility] ([facility])[address] [place] [address] Calcium [Mass/Vol] 12.1 mg/dL High 8.4-10.2 [facility] Comment on above: Performed By: #### L [id number] ####Automation Technician: JAZLYN JIMENEZ ([id number])[facility] ([facility])[address] [place] [address] Chloride [Moles/Vol] 107 mmol/L Normal 98-107 [facility] Comment on above: Performed By: #### L AB17 ####Automation Technician: JAZLYN JIMENEZ ([id number])[facility])[address] [place] [address] CO2 [Moles/Vol] 24 mmol/L Normal 22-29 [facility] Comment on above: Performed By: #### L [id number] ####Automation Technician: JAZLYN JIMENEZ ([id number])[facility])[address] [place] [address] Creatinine [Mass/Vol] 1.42 mg/dL High 0.72-1.25 [facility] Comment on above: Performed By: #### L AB17 ####Automation Technician: JAZLYN JIMENEZ ([id number])[facility])[address] [place] [address] GLOMERULAR FILTRATION RATE ML/MIN/1.73 SQ M.PREDICTED 59.8 mL/min/1.73m*2 Low >60.0 [facility] Comment on above: Result Comment: Calc ulation based on the Chronic Kidney Disease Epidemiology Collaboration (CKD-EPI) equation refit without adjustment for race Performed By: #### L [id number] ####Automation Technician: JAZLYN JIMENEZ ([id number])[facility])[address] [place] [address] Glucose [Mass/Vol] 101 mg/dL High 74-100 [facility] Comment on above: Performed By: #### L [id number] ####Automation Technician: JAZLYN JIMENEZ ([id number])[facility])[address] [place] [address] Potassium [Moles/Vol] 3.7 mmol/L Normal 3.5-5.1 [facility] Comment on above: Result Comment: [facility] potassium values may be up to 0.5 mmol/L lower than serum values. Performed By: #### L [id number] ####Automation Technician: JAZLYN JIMENEZ ([id number])[facility])[address] [place] [address] Protein [Mass/Vol] 6.3 g/dL Low 6.4-8.3 [facility] Comment on above: Performed By: #### L [id number] ####Automation Technician: JAZLYN JIMENEZ ([id number])[address] Sodium [Moles/Vol] 137 mmol/L Normal 136-145 [facility] Comment on above: Performed By: #### L [id number] ####Automation Technician: JAZLYN JIMENEZ ([id number])[facility])[address] [place] [address] Urea nitrogen [Mass/Vol] 19 mg/dL Normal 9-23 [facility] Comment on above: Performed By: #### L [id number] ####Automation Technician: JAZLYN JIMENZE ([id number])[facility])[address] [place] [address] Comprehensive metabolic 1998 panelon 11-09-2024 Albumin [Mass/Vol] 2.5 g/dL Low 3.5 - 5.0 g/dL [facility] ALP [Catalytic activity/Vol] 70 U/L 40 - 150 U/L [facility] ALT [Catalytic activity/Vol] U/L NINF - 40 U/L [facility] Anion gap [Moles/Vol] 6 mmol/L 3 - 13 mmol/L [facility] AST [Catalytic activity/Vol] 11 U/L [facility]/L [facility] Bilirubin [Mass/Vol] 0.4 mg/dL NINF - 1.2 mg/dL [facility] Calcium [Mass/Vol] 12.1 mg/dL High 8.4 - 10. 2 mg/dL [facility] Chloride [Moles/Vol] 107 mmol/L 98 - 10 7 mmol/L [facility] CO2 [Moles/Vol] 24 mmol/L 22 - 29 mmol/L [facility] Creatinine [Mass/Vol] 1.42 mg/dL High 0.72 - 1.25 mg/dL [facility] GFR/1.73 sq M.predicted (S/P/Bld) [Vol rate/Area] 59.8 mL/min Low - PINF [facility] Comment on above: Calculation based on the Chronic Kidney Disease Epidemiology Collaboration (CKD-EPI) equation refit without adjustment for race Glucose [Mass/Vol] 101 mg/dL High 74 - 100 mg/dL [facility] Interpretation and review of laboratory results Abnormal [facility] Potassium [Moles/Vol] 3.7 mmol/L 3.5 - 5.1 mmol/L [facility] Comment on above: Plasma potassium jeri ues may be up to 0.5 mmol/L lower than serum values. Protein [Mass/Vol] 6.3 g/dL Low 6.4 - 8.3 g/dL [facility] Sodium [Moles/Vol] 137 mmol/L 136 - 145 mmol/L [facility] Urea nitrogen [Mass/Vol] 19 mg/dL 9 - 23 mg/dL [facility] Consulton 11-09-2024 Consult ----- ----- Attestation signed by Cara Busch MD at [...] minutes (including chart/data review/analysis, care coordination, and [id number] encounter), and was spent discussing/counseling the patient/family regarding the diagnosis, care plan, [...] by social determinants of health (MOD) Personally Reviewed/Independently interpreted patient's: [x]Epic notes []Radiology studies [x]Labs []EKG []Ordering tests []Other Discussed/ With: [x]Patient/Family [x]RN []Consultants []Primary Team []SW/TCC []Other Time was spent: -Reviewing the medical record, including recent tests and results -Ordering prescription medications/tests and procedures -Communicating results to the patient/family/caregiver -Counseling/educating the patient/family/caregiver -Documenting clinical information in the patient's electronic record -Co-ordination of care for the patient -Performing a medically appropriate exam and evaluation Cara Busch MD, FACS Division of Trauma, Surgical Critical Care, & Acute Care Surgery Department of Surgery [facility] ----- Department of General Surgery Surgical Service - [...] He had (more content not included)... Normal [facility] ED Nursing Noteon 11-09-2024 ED Nursing Note This RN spoke to Marito colbert at transfer center for patient update. He stated that they are currently waiting for a bed assignment for the patient at [facility] Normal [facility] MANUAL DIFFERENTIALon 2024 ANISOCYTOSIS PRESENCE IN BLOOD BY LIGHT MICROSCOPY Slight Abnormal (none) [facility] Comment on above: Performed By: #### L [id number], [id number] ####Automation Technician: JAZLYN JIMENEZ ([id number])[facility] ([address] BAND NEUTROPHILS TOTAL PER COUNTED LEUKOCYTES BY MANUAL COUNT 5 Normal [facility] Comment on above: Performed By: #### L [id number], [id number] ####Automation Technician: JAZLYN JIMENEZ ([id number])[facility])[address] [place] [address] [place] BANDS 0.7 10*3/uL High <=0.0 [facility] Comment on above: Performed By: #### L [id number], [id number] ####Automation Technician: JAZLYN JIMENEZ ([id number])[facility] ([facility])[address] [place] [address] PENNY CELLS PRESENCE IN BLOOD BY LIGHT MICROSCOPY Slight Abnormal (none) [facility] Comment on above: Performed By: #### L [id number], [id number] ####Automation Technician: JAZLYN JIMENEZ ([id number])[facility] ([facility])[address] [place] [address] CELLS COUNTED TOTAL (#) IN BLOOD 100 Normal [facility] Comment on above: Performed By: #### L [id number], [id number] ####Automation Technician: JAZLYN JIMENEZ ([id number])[facility] ([facility])[address] [place] [address] DIFFERENTIAL METHOD Manual differential performed Normal [facility] Comment on above: Performed By: #### L [id number], [id number] ####Automation Technician: JAZLYN JIMENEZ ([id number])[facility] ([facility])[address] [place] [address] EOSINOPHILS (10*3/UL) IN BLOOD BY MANUAL COUNT 1.0 10*3/uL High 0.0-0.5 [facility] Comment on above: Performed By: #### L [id number], [id number] ####Automation Technician: JAZLYN JIMENEZ ([id number])[facility] ([facility])[address] [place] [address] [place] EOSINOPHILS TOTAL PER COUNTED LEUKOCYTES BY MANUAL COUNT 8 High 0-1 [facility] Comment on above: Performed By: #### L [id number], [id number] ####Automation Technician: JAZLYN JIMENEZ ([id number])[facility] ([facility])[address] [place] [address] [place] EOSINOPHILS/100 LEUKOCYTES IN BLOOD BY MANUAL COUNT 8 % High 0-6 [facility] Comment on above: Performed By: #### L [id number], [id number] ####Automation Technician: JAZLYN JIMENEZ ([id number])[facility])[address] [place] [address] LEUKOCYTE MORPHOLOGY FINDING IN BLOOD Normal Normal [facility] Comment on above: Performed By: #### L [id number], [id number] ####Automation Technician: JAZLYN JIMENEZ ([id number])[facility])[address] [place] [address] LEUKOCYTES (10*3/UL) NUCLEATED ERYTHROCYTE ADJUST 13.0 10*3/uL High 3.6-10.7 [facility] Comment on above: Performed By: #### L [id number], [id number] ####Automation Technician: JAZLYN JIMENEZ ([id number])[facility])[address] [place] [address] LYMPHOCYTES (10*3/UL) IN BLOOD BY MANUAL COUNT 1.4 10*3/uL Normal 1.0-4.3 [facility] Comment on above: Performed By: #### Kamila [id number], [id number] ####Automation Technician: JAZLYN JIMENEZ ([id number])[facility])[address] [place] [address] LYMPHOCYTES TOTAL PER COUNTED LEUKOCYTES BY MANUAL COUNT 11 Normal [facility] Comment on above: Performed By: #### Kamila [id number], [id number] ####Automation Technician: JAZLYN JIMENEZ ([id number])[facility])[address] [place] [address] [place] LYMPHOCYTES/100 LEUKOCYTES IN BLOOD BY MANUAL COUNT 11 % Low 15-45 [facility] Comment on above: Performed By: #### L [id number], [id number] ####Automation Technician: JAZLYN JIMENEZ ([id number])[facility])[address] [place] [address] MACROCYTES (PRESENCE) IN BLOOD BY LIGHT MICROSCOPY Slight Abnormal (none) [facility] Comment on above: Performed By: #### L [id number], [id number] ####Automation Technician: JAZLYN JIMENEZ ([id number])[facility])[address] [place] [address] [place] MONOCYTES (10*3/UL) IN BLOOD BY MANUAL COUNT 1.0 10*3/uL High 0.0-0.9 [facility] Comment on above: Performed By: #### L [id number], [id number] ####Automation Technician: JAZLYN JIMENEZ ([id number])[facility])[address] [place] [address] [place] MONOCYTES TOTAL PER COUNTED LEUKOCYTES BY MANUAL COUNT 8 Normal [facility] Comment on above: Performed By: #### L [id number], [id number] ####Automation Technician: JAZLYN JIMENEZ ([id number])[facility])[address] [place] [address] MONOCYTES/100 LEUKOCYTES IN BLOOD BY MANUAL COUNT 8 % Normal 5-13 [facility] Comment on above: Performed By: #### L [id number], [id number] ####Automation Technician: JAZLYN JIMENEZ ([id number])[facility])[address] [place] [address] [place] NEUTROPHILS (SEGS+BANDS) (10*3/UL) BY MANUAL COUNT 9.5 10*3/uL High 1.8-7.0 [facility] Comment on above: Performed By: #### L [id number], [id number] ####Automation Technician: JAZLYN JIMENEZ ([id number])[facility])[address] [place] [address] [place] NEUTROPHILS BAND FORM/100 LEUKOCYTES IN BLOOD BY MANUAL COUNT 5 % High <=0 [facility] Comment on above: Performed By: #### L [id number], [id number] ####Automation Technician: JAZLYN JIMENEZ ([id number])[facility])[address] [place] [address] [place] NEUTROPHILS TOTAL PER COUNTED LEUKOCYTES BY MANUAL COUNT 68 Normal [facility] Comment on above: Performed By: #### L [id number], [id number] ####Automation Technician: JAZLYN [id number])[facility])[address] [place] [address] OVALOCYTES PRESENCE IN BLOOD BY LIGHT MICROSCOPY Slight Abnormal (none) [facility] Comment on above: Performed By: #### L [id number], [id number] ####Automation Technician: JAZLYN JIMENEZ ([id number])[facility])[address] [place] [address] PLATELET MORPHOLOGY IN BLOOD Normal Normal [facility] Comment on above: Performed By: #### L [id number], [id number] ####Automation Technician: JAZLYN JIMENEZ ([id number])[facility])[address] [place] [address] POIKILOCYTOSIS (PRESENCE) IN BLOOD BY LIGHT MICROSCOPY Slight Abnormal (none) [facility] Comment on above: Performed By: #### L [id number], [id number] ####Automation Technician: JAZLYN JIMENEZ ([id number])[facility])[address] [place] [address] SEGEMENTED NEUTROPHILS/100 LEUKOCYTES BY MANUAL COUNT 68 % Normal 38-82 [facility] Comment on above: Performed By: #### L [id number], [id number] ####Automation Technician: JAZLYN JIMENEZ ([id number])[facility])[address] [place] [address] SEGMENTED NEUTROPHILS (10*3/UL)IN BLOOD BY MANUAL COUNT 9.5 10*3/uL High 1.8-7.5 [facility] Comment on above: Performed By: #### L [id number], [id number] ####Automation Technician: JAZLYN JIMENEZ ([id number])[facility])[address] [place] [address] TARGET CELLS IN BLOOD BY LIGHT MICROSCOPY Slight Abnormal (none) [facility] Comment on above: Performed By: #### L [id number], [id number] ####Automation Technician: JAZLYN JIMENEZ ([id number])[facility])[address] [place] [address] Manual differential performe d Ql (Bld)Ordered By: Flores Rausch on 11-09-2024 Anisocytosis Ql (Bld) Slight Abnormal (none) [facility] Band form neutrophils (Bld) [#/Vol] 0.7 10*3/uL High NINF - 0.0 10*3/uL [facility] Band form neutrophils/100 WBC (Bld) 5 % High NINF - 0 % [facility] Bands Manual 5 [facility] [place] cells LM Ql (Bld) Slight Abnormal (none) [facility] Cells Counted Total (Bld) [#] 100 {cells} [facility] Differential Method Manual differential performed [facility] Eosinophils (Bld) [#/Vol] 1 10*3/uL High 0.0 - 0.5 10*3/uL [facility] Eosinophils Manual 8 High 0 - 1 [facility] Eosinophils/100 WBC (Bld) 8 % High 0 - 6 % [facility] Interpretation and review of laboratory results Abnormal [facility] Leukocyte morphology finding Nom (Bld) Normal [facility] Lymphocytes (Bld) [#/Vol] 1.4 10*3/uL 1.0 - 4.3 10*3/uL [facility] Lymphocytes Manual 11 [facility] Lymphocytes/100 WBC (Bld) 11 % Low 15 - 45 % [facility] Macrocytes Ql (Bld) Slight Abnormal (none) [facility] Monocytes (Bld) [#/Vol] 1 10*3/uL High 0.0 - 0.9 10*3/uL [facility] Monocytes Manual 8 [facility] Monocytes/100 WBC (Bld) 8 % 5 - 13 % [facility] Neutrophils (Bld) [#/Vol] 9.5 10*3/uL High 1.8 - 7.5 10*3/uL [facility] Neutrophils Manual 68 [facility] Ovalocytes LM Ql (Bld) Slight Abnormal (none) [facility] Platelet morphology finding Nom (Bld) Normal [facility] Poikilocytosis LM Ql (Bld) Slight Abnormal (none) [facility] Segmented neutrophils/100 WBC (Bld) 68 % 38 - 82 % [facility] Target cells LM Ql (Bld) Slight Abnormal (none) [facility] WBC corrected for nucl RBC (Bld) [#/Vol] 13 10*3/uL High 3.6 - 10.7 10*3/uL [facility] Nursing Noteon 11-09-2024 Nursing Note transfer center called, stated still no bed are available but checking on if any changes in pt condition. Updated vitals given and isolation status confirmed. Enrique at the transfer center given unit phone number and he stated they will reach out when bed available. Normal [facility] Progress Noteon 11-09-2024 Progress Note Patient is accepted for transfer to pending bed availability. Will continue to monitor on antibiotics. Will hold off on US or biopsy of enhancing lesion at this time, although in the setting of recent infection the etiology is most likely infectious. Surgical team has signed off. Normal [facility] BLOOD CULTUREon 11-08-2024 Bacteria identified Cx Nom (Bld) BLOOD CULTURE Reference No growth at 5 days ORDER COMMENTS: Hidradenitis Blood Collection Site: Left Arm [ S = SUSCEPTIBLE R = RESISTANT I = INTERMEDIATE S-DD = Susceptible-dose dependent NS = Non-susceptible NO = No Interpretation ] [facility] Comment on above: Performed By: #### L [id number], [id number] #### Automation Technician: JAZLYN JIMENEZ ([id number]) [facility] [address] [place] [address] Bacteria identified Cx Nom (Bld) BLOOD CULTURE Reference No growth at 5 days ORDER COMMENTS: Blood Collection Site: Right Arm [ S = SUSCEPTIBLE R = RESISTANT I = INTERMEDIATE S-DD = Susceptible-dose dependent NS = Non-susceptible NO = No Interpretation ] [facility] Comment on above: Performed By: #### L [id number], [id number] #### Automation Technician: JAZLYN JIMENEZ ([id number]) [facility] ([facility]) [address] [place] [address] CBC W Auto Differential pane l (Bld)Ordered By: Vielka Cortez on 11-08-2024 Basophils (Bld) [#/Vol] 0.1 10*3/uL 0.0 - 0.2 10*3/uL [email or web address] Basophils/100 WBC (Bld) 0.5 % 0.0 - 2.0 % [email or web address] Eosinophils (Bld) [#/Vol] 0.2 10*3/uL 0.0 - 0.5 10*3/uL [email or web address] Eosinophils/100 WBC (Bld) 1.4 % 0.0 - 6.0 % [facility] [email or web address] Erythrocyte distribution width (RBC) [Ratio] 16.5 % High 11.5 - 15.0 % [facility] Hematocrit (Bld) [Volume fraction] 31.1 % Low 40.0 - 52.0 % [facility] Hemoglobin (Bld) [Mass/Vol] 10.4 g/dL Low 13.0 - 18.0 g/dL [facility] [email or web address] Immature granulocytes (Bld) [#/Vol] 0.1 10*3/uL High NINF - 0.1 10*3/uL [facility] Immature granulocytes/100 WBC (Bld) 0.5 % 0.0 - 2.0 % [facility] Interpretation and review of laboratory results Abnormal [facility] Lymphocytes (Bld) [#/Vol] 1.6 10*3/uL 1.0 - 4.3 10*3/uL [facility] Lymphocytes/100 WBC (Bld) 11.7 % Low 15.0 - 45.0 % [facility] MCH (RBC) [Entitic mass] 28.3 pg 26.0 - 34.0 pg [facility] MCHC (RBC) [Mass/Vol] 33.4 % 30.5 - 36.0 % [facility] MCV (RBC) [Entitic vol] 84.5 fL 77.0 - 99.0 fL [facility] Monocytes (Bld) [#/Vol] 1.5 10*3/uL High 0.0 - 0.9 10*3/uL [facility] Monocytes/100 WBC (Bld) 10.9 % 5.0 - 13.0 % [facility] Neutrophils (Bld) [#/Vol] 10.4 10*3/uL High 1.8 - 7.5 10*3/uL [facility] Neutrophils/100 WBC (Bld) 75 % 38.0 - 82.0 % [facility] [email or web address] Nucleated RBC/100 WBC (Bld) [Ratio] 0 % [facility] [email or web address] Platelet mean volume (Bld) [Entitic vol] 9.5 fL 9.0 - 12.7 fL [facility] [employer] Platelets (Bld) [#/Vol] 634 10*3/uL High 140 - 440 10*3/uL [facility] RBC (Bld) [#/Vol] 3.68 10*6/uL Low 4.40 - 5.9 0 10*6/uL [facility] WBC (Bld) [#/Vol] 13.9 10*3/uL High 3.6 - 10.7 10*3/uL [facility] CBC WITH AUTO DIFFERENTIALon 11-08-2024 Basophils (Bld) [#/Vol] 0.1 10*3/uL Normal 0.0-0.2 [facility] Comment on above: Performed By: #### L [id number] ####Automation Technician: JAZLYN JIMENEZ ([id number])[facility])[address] [place] [address] Basophils/100 WBC (Bld) 0.5 % Normal 0.0-2.0 [facility] Comment on above: Performed By: #### L [id number] ####Automation Technician: JAZLYN JIMENEZ ([id number])[facility])[address] [place] [address] Eosinophils (Bld) [#/Vol] 0.2 10*3/uL Normal 0.0-0.5 [facility] Comment on above: Performed By: #### L [id number] ####Automation Technician: JAZLYN JIMENEZ ([id number])[facility])[address] [place] [address] Eosinophils/100 WBC (Bld) 1.4 % Normal 0.0-6.0 [facility] Comment on above: Performed By: #### L [id number] ####Automation Technician: JAZLYN JIMENEZ ([id number])[facility])[address] [place] [address] Erythrocyte distribution width (RBC) [Ratio] 16.5 % High 11.5-15.0 [facility] Comment on above: Performed By: #### L [id number] ####Automation Technician: JAZLYN JIMENEZ ([id number])[facility])[address] [place] [address] Hematocrit (Bld) [Volume fraction] 31.1 % Low 40.0-52.0 [facility] Comment on above: Performed By: #### L [id number] ####Automation Technician: JAZLYN JIMENEZ ([id number])[facility])[address] [place] [address] Hemoglobin (Bld) [Mass/Vol] 10.4 g/dL Low 13.0-18.0 [facility] Comment on above: Performed By: #### L [id number] ####Automation Technician: JAZLYN JIMENEZ ([id number])[facility])[address] [place] [address] IMMATURE GRANS % 0.5 % Normal 0.0-2.0 [facility] Comment on above: Performed By: #### L [id number] ####Automation Technician: JAZLYN JIMENEZ ([id number])[address] IMMATURE GRANS ABSOLUTE 0.1 10*3/uL High <0.1 [facility] Comment on above: Performed By: #### L [id number] ####Automation Technician: JAZLYN JIMENEZ ([id number])[facility])[address] [place] [address] Lymphocytes (Bld) [#/Vol] 1.6 10*3/uL Normal 1.0-4.3 [facility] Comment on above: Performed By: #### L [id number] ####Automation Technician: JAZLYN JIMENEZ ([id number])[facility])[address] [place] [address] Lymphocytes/100 WBC (Bld) 11.7 % Low 15.0-45.0 [facility] Comment on above: Performed By: #### L [id number] ####Automation Technician: JAZLYN JIMENEZ ([id number])[facility])[address] [place] [address] MCH (RBC) [Entitic mass] 28.3 pg Normal 26.0-34.0 [facility] Comment on above: Performed By: #### L [id number] ####Automation Technician: JAZLYN JIMENEZ ([id number])[facility] [place] [address] MCHC 33.4 % Normal 30.5-36.0 [facility] Comment on above: Performed By: #### L [id number] ####Automation Technician: JAZLYN JIMENEZ ([id number])[facility] ([facility])[address] [place] [address] MCV (RBC) [Entitic vol] 84.5 fL Normal 77.0-99.0 [facility] Comment on above: Performed By: #### L [id number] ####Automation Technician: JAZLYN JIMENEZ ([id number])[facility] ([facility])[address] [place] [address] Monocytes (Bld) [#/Vol] 1.5 10*3/uL High 0.0-0.9 [facility] Comment on above: Performed By: #### L [id number] ####Automation Technician: JAZLYN JIMENEZ ([id number])[facility] ([facility])[address] [place] [address] Monocytes/100 WBC (Bld) 10.9 % Normal 5.0-13.0 [facility] Comment on above: Performed By: #### L [id number] ####Automation Technician: JAZLYN JIMENEZ ([id number])[facility] ([facility])[address] [place] [address] NEUTROPHILS ABSOLUTE 10.4 10*3/uL High 1.8-7.5 [facility] Comment on above: Performed By: #### L [id number] ####Automation Technician: JAZLYN IJMENEZ ([id number])[facility] ([facility])[address] [place] [address] Neutrophils/100 WBC (Bld) 75.0 % Normal 38.0-82.0 [facility] Comment on above: Performed By: #### L [id number] ####Automation Technician: JAZLYN JIMENEZ ([id number])[facility] ([facility])[address] [place] [address] NRBC 0.0 /100 WBCs Normal 0.0-2.0 [facility] Comment on above: Performed By: #### L [id number] ####Automation Technician: JAZLYN JIMENEZ ([id number])[facility])[address] [place] [address] Platelet mean volume (Bld) [Entitic vol] 9.5 fL Normal 9.0-12.7 [facility] Comment on above: Performed By: #### L [id number] ####Automation Technician: JAZLYN JIMENEZ ([id number])[facility] ([facility])[address] [place] [address] Platelets (Bld) [#/Vol] 634 10*3/uL High 140-440 [facility] Comment on above: Performed By: #### L [id number] ####Automation Technician: JAZLYN JIMENEZ ([id number])[facility] ([facility])[address] [place] [address] RBC (Bld) [#/Vol] 3.68 10*6/uL Low 4.40-5.90 [facility] Comment on above: Performed By: #### L [id number] ####Automation Technician: JAZLYN JIMENEZ ([id number])[facility] ([facility])[address] [place] [address] WBC (Bld) [#/Vol] 13.9 10*3/uL High 3.6-10.7 [facility] Comment on above: Performed By: #### L [id number] ####Automation Technician: JAZLYN JIMENEZ ([id number])[facility] ([facility])[address] [place] [address] COMPLETE URINALYSISon 2024 BILIRUBIN, TOTAL PRESENCE IN URINE Negative Normal Negative [facility] Comment on above: Performed By: #### L [id number] ####Automation Technician: JAZLYN JIMENEZ ([id number])[facility])[address] [place] [address] Clarity (U) Clear Normal Clear [facility] Comment on above: Performed By: #### L [id number] ####Automation Technician: JAZLYN JIMENEZ ([id number])[facility] ([facility])[address] [place] [address] Color (U) Light Yellow Normal Lt. Yellow [facility] Comment on above: Performed By: #### L [id number] ####Automation Technician: JAZLYN JIMENEZ ([id number])[facility] ([facility])[address] [place] [address] GLUCOSE (MG/DL) IN URINE Normal Normal Normal (<70) [facility] Comment on above: Performed By: #### L [id number] ####Automation Technician: JAZLYN JIMENEZ ([id number])[facility])[address] [place] [address] HEMOGLOBIN PRESENCE IN URINE Negative Normal Negative [facility] Comment on above: Performed By: #### L [id number] ####Automation Technician: JAZLYN JIMENEZ ([id number])[facility] ([facility])[address] [place] [address] Ketones Ql (U) Negative Normal Negative [facility] Comment on above: Performed By: #### L [id number] ####Automation Technician: JAZLYN JIMENEZ ([id number])[facility])[address] [place] [address] LEUKOCYTE ESTERASE PRESENCE IN URINE BY TEST STRIP Negative Normal Negative [facility] Comment on above: Performed By: #### L [id number] ####Automation Technician: JAZLYN JIMENEZ ([id number])[facility])[address] [place] [address] NITRITE PRESENCE IN URINE Negative Normal Negative [facility] Comment on above: Performed By: #### L [id number] ####Automation Technician: JAZLYN JIMENEZ ([id number])[facility])[address] [place] [address] pH (U) 5.5 [pH] Normal 5.0-8.0 [facility] Comment on above: Performed By: #### L [id number] ####Automation Technician: JAZLYN JIMENEZ ([id number])[facility])[address] [place] [address] Protein (U) [Mass/Vol] Negative Normal Negative [facility] Comment on above: Performed By: #### L [id number] ####Automation Technician: JAZLYN JIMENEZ ([id number])[facility])[address] [place] [address] Specific gravity (U) [Rel density] 1.017 Normal 1.005-1.030 [facility] Comment on above: Performed By: #### L [id number] ####Automation Technician: JAZLYN JIMENEZ ([id number])[facility])[address] [place] [address] UROBILINOGEN (MG/DL) IN URINE Normal Normal Normal (0-1) [facility] Comment on above: Performed By: #### L [id number] ####Automation Technician: JAZLYN JIMENEZ ([id number])[facility])[address] [place] [address] COMPREHENSIVE METABOLIC PANE Yuriy 11-08-2024 Albumin [Mass/Vol] 3.0 g/dL Low 3.5-5.0 [facility] Comment on above: Performed By: #### Kamila AB17, [id number] ####Automation Technician: JAZLYN JIMENEZ ([id number])[facility])[address] [place] [address] ALP [Catalytic activity/Vol] 84 U/L Normal 40-150 [facility] Comment on above: Performed By: #### L AB17, [id number] ####Automation Technician: JAZLYN JIMENEZ ([id number])[facility])[address] [place] [address] ALT [Catalytic activity/Vol] 7 U/L Normal <40 [facility] Comment on above: Performed By: #### L AB17, [id number] ####Automation Technician: JAZLYN JIMENEZ ([id number])[facility])[address] [place] [address] Anion gap [Moles/Vol] 10 mmol/L Normal 3-13 [facility] Comment on above: Performed By: #### L AB17, [id number] ####Automation Technician: JAZLYN JIMENEZ ([id number])[facility])[address] [place] [address] AST [Catalytic activity/Vol] 14 U/L Normal <34 [facility] Comment on above: Performed By: #### L AB17, [id number] ####Automation Technician: JAZLYN JIMENEZ ([id number])[facility])[address] [place] [address] Bilirubin [Mass/Vol] 0.5 mg/dL Normal <1.2 [facility] Comment on above: Performed By: #### L AB17, [id number] ####Automation Technician: JAZLYN JIMENEZ ([id number])[facility])[address] [place] [address] Calcium [Mass/Vol] 13.5 mg/dL High 8.4-10.2 [facility] Comment on above: Performed By: #### L AB17, [id number] ####Automation Technician: JAZLYN JIMENEZ ([id number])[facility] ([facility])[address] [place] [address] [place] Chloride [Moles/Vol] 103 mmol/L Normal 98-107 [facility] Comment on above: Performed By: #### L AB17, [id number] ####Automation Technician: JAZLYN JIMENEZ ([id number])[facility] ([facility])[address] [place] [address] [place] CO2 [Moles/Vol] 24 mmol/L Normal 22-29 [facility] Comment on above: Performed By: #### L AB17, [id number] ####Automation Technician: JAZLYN JIMENEZ ([id number])[facility])[address] [place] [address] [place] Creatinine [Mass/Vol] 1.39 mg/dL High 0.72-1.25 [facility] Comment on above: Performed By: #### L AB17, [id number] ####Automation Technician: JAZLYN JIMENEZ ([id number])[facility])[address] [place] [address] [place] GLOMERULAR FILTRATION RATE ML/MIN/1.73 SQ M.PREDICTED 61.4 mL/min/1.73m*2 Normal >60.0 [facility] Comment on above: Result Comment: Calc ulation based on the Chronic Kidney Disease Epidemiology Collaboration (CKD-EPI) equation refit without adjustment for race Performed By: #### L AB17, [id number] ####Automation Technician: JAZLYN JIMENEZ ([id number])[facility])[address] [place] [address] Glucose [Mass/Vol] 104 mg/dL High 74-100 [facility] Comment on above: Performed By: #### L AB17, [id number] ####Automation Technician: JAZLYN JIMENEZ ([id number])[address] Potassium [Moles/Vol] 4.2 mmol/L Normal 3.5-5.1 [facility] Comment on above: Result Comment: [facility] potassium values may be up to 0.5 mmol/L lower than serum values. Performed By: #### L [id number], [id number] ####Automation Technician: JAZLYN JIMENEZ ([id number])[address] Protein [Mass/Vol] 7.7 g/dL Normal 6.4-8.3 [facility] Comment on above: Performed By: #### L AB17, [id number] ####Automation Technician: JAZLYN JIMENEZ ([id number])[place] [address] [place] Sodium [Moles/Vol] 137 mmol/L Normal 136-145 [facility] Comment on above: Performed By: #### L AB17, [id number] ####Automation Technician: JAZLYN JIMENEZ ([id number])[place] [address] [place] Urea nitrogen [Mass/Vol] 21 mg/dL Normal 9-23 [facility] Comment on above: Performed By: #### L AB17, [id number] ####Automation Technician: JAZLYN JIMENEZ ([id number])[facility] ([address] PELVIS W IV CONTRASTon CT PELVIS W IV CONTRAST Patient Name: KEVAN LA : 1975 [facility]#: [id number] Exam Date/Time: 11/08/2024 16:38 Procedure: CT PELVIS [...] on back from abscesses. Pt arrives from [facility] for possible sepsis. Had wound on buttock drained at in Sep. Has not had IV antibiotics at facility. Hx of rare skin condition with frequent abscesses. Aox4. Some N/V. Hypotensive 80-90 systolic. Normal 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 [facility] Julio Sears M D - 11/08/2024 [facility] 1975 [id number] Exam Date/Time: 11/08/2024 16:38 Procedure: CT PELVIS [...] Electronically Signed Date/Time: 11/08/2024 5:20 PM EST [facility] [email or web address] Radiology Study observation (narrative) [facility] [email or web address] CT Pelvis W contrast IVOrder ed By: Julio Sears on 11-08-2024 [facility] Work Phone: Comprehensive metabolic 1998 panelon 11-08-2024 Albumin [Mass/Vol] 3 g/dL Low 3.5 - 5.0 g/dL [facility] ALP [Catalytic activity/Vol] 84 U/L 40 - 150 U/L [facility] ALT [Catalytic activity/Vol] 7 U/L NINF - 40 U/L [facility] Anion gap [Moles/Vol] 10 mmol/L 3 - 13 mmol/L [facility] AST [Catalytic activity/Vol] 14 U/L NINF - 34 U/L [facility] Bilirubin [Mass/Vol] 0.5 mg/dL NINF - 1.2 mg/dL [facility] Calcium [Mass/Vol] 13.5 mg/dL High 8.4 - 10. 2 mg/dL [facility] Chloride [Moles/Vol] 103 mmol/L 98 - 10 7 mmol/L [facility] CO2 [Moles/Vol] 24 mmol/L 22 - 29 mmol/L [facility] Creatinine [Mass/Vol] 1.39 mg/dL High 0.72 - 1.25 mg/dL [facility] GFR/1.73 sq M.predicted (S/P/Bld) [Vol rate/Area] 61.4 mL/min - PINF [facility] Comment on above: Calculation based on the Chronic Kidney Disease Epidemiology Collaboration (CKD-EPI) equation refit without adjustment for race Glucose [Mass/Vol] 104 mg/dL High 74 - 100 mg/dL [facility] Interpretation and review of laboratory results Abnormal [facility] Potassium [Moles/Vol] 4.2 mmol/L 3.5 - 5.1 mmol/L [facility] Comment on above: Plasma potassium jeri ues may be up to 0.5 mmol/L lower than serum values. Protein [Mass/Vol] 7.7 g/dL 6.4 - 8.3 g/dL [facility] Sodium [Moles/Vol] 137 mmol/L 136 - 145 mmol/L [facility] Urea nitrogen [Mass/Vol] 21 mg/dL 9 - 23 mg/dL [facility] Consulton 11-08-2024 Consult Pharmacy Managed Vancomycin Dosing [...] creatinine, and vancomycin levels interfaced automatically to [employer] and data has been analyzed and interpreted. [...] Clinical Pharmacist Available via Secure Chat [facility] ED Nursing Noteon 11-08-2024 ED Nursing Note Provider messaged ab out BP and MAP Normal [facility] ED Nursing Note Provider messaged ab out orders Normal [facility] ED Nursing Note Patient requested pa in medication and dinner. This nurse messaged provider Normal [facility] ED Nursing Note Patient is aware of patients BP and MAP. Normal [facility] ED Nursing Note Liter of NS hung for systolic of 88. IV obtained with blood work and first set of cultures. Will notify doctor of BP. Normal [facility] ED Provider Noteon ED Provider Note Emergency Department Encounter Location: [facility] Patient: Kevan [...] 1.8 - (more content not included)... Normal [facility] ED Provider Note EMERGENCY DEPARTMENT [...] Received from [facility] Overall Financial Resource Strain (CARDIA) Difficulty of Paying Living Expenses: Somewhat hard Food Insecurity: Food Insecurity Present (10/11/2024) Received from [facility] Hunger Vital Sign Worried About Running Out of Food in the Last Year: Sometimes true Ran Out of Food in the Last Year: Sometimes true Transportation Needs: No Transportation Needs (10/12/2024) Received from [facility] PRAPARE - Transportation Lack of Transportation (Medical): No Lack of Transportation (Non-Medical): No Intimate Partner Violence: Not At Risk (10/11/2024) Received from [facility] Humiliation, Afraid, Rape, and Kick questionnaire Fear of Current or Ex-Partner: No Emotionally Abused: No Physically Abused: No Sexually Abused: No Housing Stability: Low Risk (10/12/2024) Received from [facility] Housing Stability Vital Sign Unable to Pay for Housing in the Last Year: No Number of Times Moved in the Last Year: 1 Homeless in the Last Year: No Recent Concern: Housing Stability - High Risk (09/17/2024) Received from [facility] Housing Stability Vital Sign Unable to Pay [...] Emergency Physic (more content not included)... Normal [facility] ED Provider Note Emergency Department Encounter [facility] Patient: Kevan La : 1975 [...] pressure and wound check. Patient coming from [facility] for possible sepsis. Patient has chronic [...] for clarification.) Fer Kennedy MD Acute Care [facility] Fer Kennedy MD 11/08/24 1651 Normal [facility] HEMOGLOBIN A1Con 11-08-2024 Glucose [Mass/Vol] 103 mg/dL Normal [facility] Comment on above: Result Comment: MAYRA Dhillon COMMENTS: HbA1c values of 5.7-6.4 percent indicate an increased risk for developing diabetes mellitus. HbA1c values greater than or equal to 6.5 percent are diagnostic of diabetes mellitus. For diagnosis of diabetes in individuals without unequivocal hyperglycemia, results should be confirmed by repeat testing. Performed By: #### L [id number] ####Automation Technician: JAZLYN JIMENEZ ([id number])[facility] ([facility])[address] [place] [address] HEMOGLOBIN A1C 5.2 %HbA1C Normal <5.7 [facility] Comment on above: Result Comment: Norm al less than 5.7% Prediabetes 5.7% to 6.4% Diabetes 6.5% or higher --HgbA1C levels may not be accurate in patients who have renal disease, received recent blood transfusions, are anemic, or who have dyshemoglobinemia. Performed By: #### L AB90 ####Automation Technician: JAZLYN JIMENEZ ([id number])[facility] ([facility])[address] [place] [address] LACTIC ACID WITH REFLEXon Lactate [Moles/Vol] 1.2 mmol/L Normal 0.5-2.2 [facility] Comment on above: Performed By: #### L [id number] ####Automation Technician: JAZLYN JIMENEZ ([id number])[facility] ([facility])[address] [place] [address] Laboratory - Chemistry and C hemistry - challengeon 11-08-2024 Average glucose Estimated from glycated hemoglobin (Bld) [Mass/Vol] 103 mg/dL [facility] TSH Qn 0.84 m[IU]/L [facility] Lactate [Moles/Vol] 1.2 mmol/L 0.5 - 2. 2 mmol/L [facility] Laboratory - Hematology and Cell countson 11-08-2024 HbA1c (Bld) [Mass fraction] 5.2 % [facility] Comment on above: Normal less than 5.7 % Prediabetes 5.7% to 6.4% Diabetes 6.5% or higher --HgbA1C levels may not be accurate in patients who have renal disease, received recent blood transfusions, are anemic, or who have dyshemoglobinemia. No Panel Informationon 11-08 HbA1c values of 5.7- 6.4 percent indicate an increased risk for developing diabetes mellitus. HbA1c values greater than or equal to 6.5 percent are diagnostic of diabetes mellitus. For diagnosis of diabetes in individuals without unequivocal hyperglycemia, results should be confirmed by repeat testing. [facility] Interpretation and review of laboratory results Normal [facility] THYROID STIMULATING HORMONEo n 11-08-2024 THYROID STIMULATING HORMONE 0.84 uIU/mL Normal 0.35-4.94 [facility] Comment on above: Performed By: #### L AB17, [id number] ####Automation Technician: JAZLYN JIMENEZ ([id number])[facility] ([facility])[address] [place] [address] TSH Qnon 11-08-2024 Interpretation and review of laboratory results Normal [facility] Urinalysis complete panel (U )on 11-08-2024 Bilirubin Ql (U) Negative Negative mg/dL [facility] Clarity (U) Clear Clear [facility] Color (U) Light Yellow Lt. Yellow [facility] Glucose Ql (U) Normal Normal (<70) mg/dL [facility] Hemoglobin Ql (U) Negative Negative mg/dL [facility] Interpretation and review of laboratory results Normal [facility] Ketones (U) [Mass/Vol] Negative Negat sulema mg/dL [facility] Leukocyte esterase Test strip Ql (U) Negative Negative Gabe/uL [facility] Nitrite Ql (U) Negative Negative [facility] pH (U) 5.5 [pH] 5.0 - 8.0 pH [facility] Protein (U) [Mass/Vol] Negative Negat sulema mg/dL [facility] Specific gravity (U) [Rel density] 1.017 1.005 - 1.030 [facility] Urobilinogen (U) [Mass/Vol] Normal Normal (0-1) mg/dL [facility] [id number] DOrdered By: Vanda Nolasco on 10-24-2024 Vitamin D 25-Hydroxy 63.4 ng/mL [facility] Comment on above: Vitamin D 25(OH) Sta tus Range Deficiency <20 ng/mL (50nmol/L) Insufficiency 20 - 30 ng/mL (50 - 75 nmol/L) Sufficiency 30 - 100 ng/mL (75 - 250 nmol/L) Toxicity >100 ng/mL (>250 nmol/L) Blood urea nitrogen (BUN)/cr eatinine ratioOrdered By: Julio Nolasco on 10-24-2024 Urea nitrogen/Creatinine [Mass ratio] 14.0 mg/mg 10-20 [facility] Carbon dioxide measurementOr dered By: Julio Nolasco on 10-24-2024 CO2 [Moles/Vol] 26.0 mmol/L 21.0-32.0 [facility] Chloride measurementOrdered By: Julio Nolasco on 10-24-2024 Chloride [Moles/Vol] 104 mmol/L 98-107 [facility] Erythrocyte distribution wid th (RBC) [Ratio]Ordered By: Julio Nolasco on 10-24-2024 Erythrocyte distribution width (RBC) [Entitic vol] 60.6 fL High 35.1-43.9 [facility] Erythrocyte distribution wid th ratioOrdered By: Julio Nolasco on 10-24-2024 Erythrocyte distribution width (RBC) [Ratio] 18.5 % High 11.6-14.6 [facility] Estimated glomerular filtrat ion rate (GFR) AmericanOrdered By: Julio Nolasco on 10-24-2024 Estimated GFR (MDRD) Amer 75 mL/min >60 [facility] Comment on above: GFR Calc Glomerular filtration rate ( GFR) estimationOrdered By: Julio Nolasco on 10-24-2024 Estimated GFR (MDRD) Non-Af Amer 62 mL/min >60 [facility] Comment on above: Non- GFR Calc Glucose measurementOrdered B y: Julio Nolasco on 10-24-2024 Glucose [Mass/Vol] 95 mg/dL 74-106 [facility] Hematocrit Auto (Bld) [Volum e fraction]Ordered By: Julio Nolasco on 10-24-2024 Hematocrit (Bld) [Volume fraction] 26.4 % Low 40-54 [facility] Hemoglobin A1c percentageOrd ered By: Julio Nolasco on 10-24-2024 HbA1c (Bld) [Mass fraction] 5.2 % 3.8-5.6 [facility] Comment on above: Normal < 5.7 % Predi abetic 5.7 - 6.4 % Diabetic >or= 6.5 % Please note range changes. Hemoglobin measurementOrdere d By: Julio Nolasco on 10-24-2024 Hemoglobin (Bld) [Mass/Vol] 8.4 g/dL Low 13.0-16.5 [facility] High density lipoprotein (HD L) measurementOrdered By: Julio Nolasco on 10-24-2024 Cholesterol in HDL [Mass/Vol] 38 mg/dL Low >40 [facility] Comment on above: The drugs N-Acetylcy steine and Metamizole may falsely depress this assay. Reference Range HDL <40 mg/dL Low HDL Cholesterol HDL >or= 60 mg/dL High HDL Cholesterol Low density lipoprotein (LDL ) cholesterol measurementOrdered By: Julio Nolasco on 10-24-2024 Cholesterol in LDL [Mass/Vol] 96 mg/dL 0-130 [facility] MCV (mean corpuscular volume ) determinationOrdered By: Julio Nolasco on 10-24-2024 MCV (RBC) [Entitic vol] 89.5 fL 80-94 [facility] Mean corpuscular hemoglobin (MCH) determinationOrdered By: Julio Nolasco on 10-24-2024 MCH (RBC) [Entitic mass] 28.5 pg 27.0-32.0 [facility] Mean corpuscular hemoglobin concentration (MCHC) determinationOrdered By: Julio Nolasco on 10-24-2024 MCHC (RBC) [Mass/Vol] 31.8 g/dL Low 32-36 [facility] Mean platelet volume determi nationOrdered By: Julio Nolasco on 10-24-2024 Platelet mean volume (Bld) [Entitic vol] 8.7 fL 6.2-12.0 [facility] Platelet countOrdered By: Antwon Nolasco on 10-24-2024 Platelets (Bld) [#/Vol] 536 10*3/uL High 150-450 [facility] Potassium measurementOrdered By: Julio Nolasco on 10-24-2024 Potassium [Moles/Vol] 4.0 mmol/L 3.5-5.1 [facility] RBC Auto (Bld) [#/Vol]Ordere d By: Julio Nolasco on 10-24-2024 RBC (Bld) [#/Vol] 2.95 10*6/uL Low 4.6-6.2 [facility] Serum anion gap measurementO rdered By: Julio Nolasco on 10-24-2024 Anion gap [Moles/Vol] 7 mmol/L 5-15 [facility] Serum or plasma calcium mervat urement (mass/volume)Ordered By: Julio Nolasco on 10-24-2024 Calcium [Mass/Vol] 10.3 mg/dL High 8.5-10.1 [facility] Serum or plasma cholesterol measurement (mass/volume)Ordered By: Julio Nolasco on 10-24-2024 Cholesterol [Mass/Vol] 164 mg/dL <200 [facility] Comment on above: <200 mg/dL Desirable 200-240 mg/dL Borderline >240 mg/dL High Risk Serum or plasma creatinine m easurement (mass/volume)Ordered By: Julio Nolasco on 10-24-2024 Creatinine [Mass/Vol] 1.29 mg/dL 0.70-1.30 [facility] Comment on above: The validity of the calculated GFR & GFRAA in patients over 70 years has not been determined. Clinical correlation is essential. Serum or plasma urea nitroge n measurement (mass/volume)Ordered By: Julio Nolasco on 10-24-2024 Urea nitrogen [Mass/Vol] 18 mg/dL 7-18 [facility] Sodium levelOrdered By: William Nolasco on 10-24-2024 Sodium [Moles/Vol] 137 mmol/L 136-145 [facility] TSH QnOrdered By: Julio johnson on 10-24-2024 Thyroid Stimulating Hormone (TSH) 5.030 uIU/mL High 0.358-3.740 [facility] Triglycerides measurementOrd ered By: Julio Nolasco on 10-24-2024 Triglyceride [Mass/Vol] 150 mg/dL <199 [facility] Comment on above: The drugs N-Acetylcy steine and Metamizole may falsely depress this assay.Serum Triglycerides Reference Interval Normal <150 mg/dL Borderline high 150 - 199 mg/dL High 200 - 499 mg/dL Very High > or = 500 mg/dL Very low density lipoprotein (VLDL) cholesterol measurementOrdered By: Julio Nolasco on 10-24-2024 VLDL Cholesterol 30 mg/dL 5-40 [facility] White blood cell (WBC) count Ordered By: Julio Nolasco on 10-24-2024 WBC (Bld) [#/Vol] 12.2 10*3/uL High 4.4-11.0 [facility] Basic metabolic 2000 panelon 10-23-2024 Anion gap [Moles/Vol] 13 mmol/L 10 - 2 0 mmol/L [facility] Calcium [Mass/Vol] 10.2 mg/dL 8.6 - 10. 6 mg/dL [facility] Chloride [Moles/Vol] 101 mmol/L 98 - 10 7 mmol/L [facility] CO2 [Moles/Vol] 27 mmol/L 21 - 32 mmol/L [facility] Creatinine [Mass/Vol] 1.37 mg/dL High 0.50 - 1.30 mg/dL [facility] GFR/1.73 sq M.predicted among non-blacks MDRD (S/P/Bld) [Vol rate/Area] 62 mL/min/{1.73_m2} - PINF [facility] Glucose [Mass/Vol] 98 mg/dL 74 - 99 mg/dL [facility] Interpretation and review of laboratory results Abnormal [facility] Potassium [Moles/Vol] 4.3 mmol/L 3.5 - 5.3 mmol/L [facility] Sodium [Moles/Vol] 137 mmol/L 136 - 145 mmol/L [facility] Urea nitrogen [Mass/Vol] 20 mg/dL 6 - 23 mg/dL [facility] CBC W Auto Differential pane l (Bld)on 10-23-2024 Basophils (Bld) [#/Vol] 0.08 10*3/uL [facility] Basophils/100 WBC (Bld) 0.6 % 0.0 - 2.0 % [facility] Eosinophils (Bld) [#/Vol] 0.23 10*3/uL [facility] Eosinophils/100 WBC (Bld) 1.7 % 0.0 - 6.0 % [facility] Erythrocyte distribution width (RBC) [Ratio] 18.6 % High 11.5 - 14.5 % [facility] Hematocrit (Bld) [Volume fraction] 26.4 % Low 41.0 - 52.0 % [facility] Hemoglobin (Bld) [Mass/Vol] 8.3 g/dL Low 13.5 - 17.5 g/dL [facility] Immature granulocytes (Bld) [#/Vol] 0.06 10*3/uL [facility] Immature granulocytes/100 WBC (Bld) 0.5 % 0.0 - 0.9 % [facility] Interpretation and review of laboratory results Abnormal [facility] Lymphocytes (Bld) [#/Vol] 1.57 10*3/uL [facility] Lymphocytes/100 WBC (Bld) 11.8 % 13.0 - 44.0 % [facility] MCH (RBC) [Entitic mass] 27.9 pg 26.0 - 34.0 pg [facility] MCHC (RBC) [Mass/Vol] 31.4 g/dL Low 32.0 - 36.0 g/dL [facility] MCV (RBC) [Entitic vol] 89 fL 80 - 100 fL [facility] Monocytes (Bld) [#/Vol] 1.38 10*3/uL High [facility] Monocytes/100 WBC (Bld) 10.4 % 2.0 - 10.0 % [facility] Neutrophils (Bld) [#/Vol] 9.93 10*3/uL High [facility] Neutrophils/100 WBC (Bld) 75 % 40.0 - 80.0 % [facility] Nucleated RBC/100 WBC (Bld) [Ratio] 0 % [facility] Platelets (Bld) [#/Vol] 525 10*3/uL High [facility] RBC (Bld) [#/Vol] 2.98 10*6/uL Low [facility] WBC (Bld) [#/Vol] 13.3 10*3/uL High [facility] Magnesiumon 10-23-2024 Magnesium [Mass/Vol] 2 mg/dL 1.60 - 2.40 mg/dL [facility] No Panel Informationon 10-23 Interpretation and review of laboratory results Normal [facility] Phosphoruson 10-23-2024 Phosphate [Mass/Vol] 3.7 mg/dL 2.5 - 4 .9 mg/dL [facility] Basic metabolic 2000 panelon 10-22-2024 Anion gap [Moles/Vol] 14 mmol/L 10 - 2 0 mmol/L [facility] Calcium [Mass/Vol] 10.3 mg/dL 8.6 - 10. 6 mg/dL [facility] Chloride [Moles/Vol] 100 mmol/L 98 - 10 7 mmol/L [facility] CO2 [Moles/Vol] 26 mmol/L 21 - 32 mmol/L [facility] Creatinine [Mass/Vol] 1.43 mg/dL High 0.50 - 1.30 mg/dL [facility] GFR/1.73 sq M.predicted among non-blacks MDRD (S/P/Bld) [Vol rate/Area] 59 mL/min/{1.73_m2} Low - PINF [facility] Glucose [Mass/Vol] 111 mg/dL High 74 - 99 mg/dL [facility] Interpretation and review of laboratory results Abnormal [facility] Potassium [Moles/Vol] 4.2 mmol/L 3.5 - 5.3 mmol/L [facility] Sodium [Moles/Vol] 136 mmol/L 136 - 145 mmol/L [facility] Urea nitrogen [Mass/Vol] 18 mg/dL 6 - 23 mg/dL [facility] CBC W Auto Differential pane l (Bld)on 10-22-2024 Basophils (Bld) [#/Vol] 0.06 10*3/uL [facility] Basophils/100 WBC (Bld) 0.4 % 0.0 - 2.0 % [facility] Eosinophils (Bld) [#/Vol] 0.33 10*3/uL [facility] Eosinophils/100 WBC (Bld) 2.4 % 0.0 - 6.0 % [facility] Erythrocyte distribution width (RBC) [Ratio] 18.5 % High 11.5 - 14.5 % [facility] Hematocrit (Bld) [Volume fraction] 26.8 % Low 41.0 - 52.0 % [facility] Hemoglobin (Bld) [Mass/Vol] 8.3 g/dL Low 13.5 - 17.5 g/dL [facility] Immature granulocytes (Bld) [#/Vol] 0.07 10*3/uL [facility] Immature granulocytes/100 WBC (Bld) 0.5 % 0.0 - 0.9 % [facility] Interpretation and review of laboratory results Abnormal [facility] Lymphocytes (Bld) [#/Vol] 1.75 10*3/uL [facility] Lymphocytes/100 WBC (Bld) 12.5 % 13.0 - 44.0 % [facility] MCH (RBC) [Entitic mass] 27.7 pg 26.0 - 34.0 pg [facility] MCHC (RBC) [Mass/Vol] 31 g/dL Low 32.0 - 36.0 g/dL [facility] MCV (RBC) [Entitic vol] 89 fL 80 - 100 fL [facility] Monocytes (Bld) [#/Vol] 1.29 10*3/uL High [facility] Monocytes/100 WBC (Bld) 9.2 % 2.0 - 10.0 % [facility] Neutrophils (Bld) [#/Vol] 10.52 10*3/uL High [facility] Neutrophils/100 WBC (Bld) 75 % 40.0 - 80.0 % [facility] Nucleated RBC/100 WBC (Bld) [Ratio] 0 % [facility] Platelets (Bld) [#/Vol] 556 10*3/uL High [facility] RBC (Bld) [#/Vol] 3 10*6/uL Low [facility] WBC (Bld) [#/Vol] 14 10*3/uL High [facility] Magnesiumon 10-22-2024 Magnesium [Mass/Vol] 1.94 mg/dL 1.60 - 2.40 mg/dL [facility] No Panel Informationon 10-22 Interpretation and review of laboratory results Normal [facility] Phosphoruson 10-22-2024 Phosphate [Mass/Vol] 3.1 mg/dL 2.5 - 4 .9 mg/dL [facility] Basic metabolic 2000 panelon 10-21-2024 Anion gap [Moles/Vol] 14 mmol/L 10 - 2 0 mmol/L [facility] Calcium [Mass/Vol] 10 mg/dL 8.6 - 10. 6 mg/dL [facility] Chloride [Moles/Vol] 103 mmol/L 98 - 10 7 mmol/L [facility] [place] CO2 [Moles/Vol] 26 mmol/L 21 - 32 mmol/L [facility] [place] Creatinine [Mass/Vol] 1.55 mg/dL High 0.50 - 1.30 mg/dL [facility] [place] GFR/1.73 sq M.predicted among non-blacks MDRD (S/P/Bld) [Vol rate/Area] 54 mL/min/{1.73_m2} Low - PINF [facility] [place] Glucose [Mass/Vol] 98 mg/dL 74 - 99 mg/dL [facility] [place] Interpretation and review of laboratory results Abnormal [facility] [place] Potassium [Moles/Vol] 4.4 mmol/L 3.5 - 5.3 mmol/L [facility] [place] Sodium [Moles/Vol] 139 mmol/L 136 - 145 mmol/L [facility] [place] Urea nitrogen [Mass/Vol] 20 mg/dL 6 - 23 mg/dL [facility] [place] CBC W Auto Differential pane l (Bld)on 10-21-2024 Erythrocyte distribution width (RBC) [Ratio] 18.5 % High 11.5 - 14.5 % [facility] [place] Hematocrit (Bld) [Volume fraction] 26 % Low 41.0 - 52.0 % [facility] [place] Hemoglobin (Bld) [Mass/Vol] 8 g/dL Low 13.5 - 17.5 g/dL [facility] [place] Immature granulocytes (Bld) [#/Vol] 0.07 10*3/uL [facility] [place] Immature granulocytes/100 WBC (Bld) 0.6 % 0.0 - 0.9 % [facility] [place] MCH (RBC) [Entitic mass] 27.9 pg 26.0 - 34.0 pg [facility] [place] MCHC (RBC) [Mass/Vol] 30.8 g/dL Low 32.0 - 36.0 g/dL [facility] [place] MCV (RBC) [Entitic vol] 91 fL 80 - 100 fL [facility] [place] Nucleated RBC/100 WBC (Bld) [Ratio] 0 % [facility] [place] Platelets (Bld) [#/Vol] 549 10*3/uL High [facility] [place] RBC (Bld) [#/Vol] 2.87 10*6/uL Low [facility] WBC (Bld) [#/Vol] 12.4 10*3/uL High [facility] MRSA isol Org specific cx Ql (Nose)Ordered By: Anabelle Guerrero on 10-21-2024 Interpretation and review of laboratory results Normal [facility] [place] Staphylococcus sp identified Org specific cx Nom (Unsp spec) No Staphylococcus aureus isolated [facility] Magnesiumon 10-21-2024 Magnesium [Mass/Vol] 2.03 mg/dL 1.60 - 2.40 mg/dL [facility] [place] Manual differential performe d Ql (Bld)on 10-21-2024 Basophils (Bld) [#/Vol] 0.21 10*3/uL High [facility] [place] Basophils/100 WBC (Bld) 1.7 % 0.0 - 2.0 % [facility] [place] Cells Counted Total (Bld) [#] 117 {cells} [facility] [place] Eosinophils (Bld) [#/Vol] 0.21 10*3/uL [facility] [place] Eosinophils/100 WBC (Bld) 1.7 % 0.0 - 6.0 % [facility] [place] Hypochromia Ql (Bld) Mild [facility] Lymphocytes (Bld) [#/Vol] 2.54 10*3/uL [facility] [place] Lymphocytes/100 WBC (Bld) 20.5 % 13.0 - 44.0 % [facility] [place] Monocytes (Bld) [#/Vol] 0.53 10*3/uL [facility] [place] Monocytes/100 WBC (Bld) 4.3 % 2.0 - 10.0 % [facility] [place] RBC morphology finding Nom (Bld) See Below [facility] [place] Segmented neutrophils (Bld) [#/Vol] 8.79 10*3/uL [facility] Segmented neutrophils/100 WBC (Bld) 70.9 % 40.0 - 80.0 % [facility] [place] Variant lymphocytes (Bld) [#/Vol] 0.11 10*3/uL [facility] [place] Variant lymphocytes/100 WBC (Bld) 0.9 % 0.0 - 2.0 % [facility] [place] No Panel Informationon 10-21 Interpretation and review of laboratory results Normal [facility] Interpretation and review of laboratory results Abnormal [facility] Phosphoruson 10-21-2024 Phosphate [Mass/Vol] 3.9 mg/dL 2.5 - 4 .9 mg/dL [facility] [place] US.doppler Lower extremity v ein - bilateralon 10-21-2024 SYNGO [facility] [place] Work Phone: Radiology Study observation (narrative) [facility] [place] Work Phone: US.doppler Lower extremity v ein - bilateralOrdered By: Viki Colin on 10-21-2024 [facility] [place] Work Phone: Vancomycinon 10-21-2024 Vancomycin [Mass/Vol] 4.4 ug/mL Low 5.0 - 20.0 ug/mL [facility] [place] Vancomycin [Mass/Vol]on Interpretation and review of laboratory results Abnormal [facility] Bacteria identified Cx Nom ( Bld)Ordered By: Jennifer Saravia on 10-20-2024 Bacteria identified Aer cx Nom (Bld) Positive [facility] [place] Interpretation and review of laboratory results Abnormal [facility] [place] Microscopic observation Gram stain Nom (Unsp spec) Positive Critically abnormal [facility] Basic metabolic 2000 panelon 10-20-2024 Anion gap [Moles/Vol] 15 mmol/L 10 - 2 0 mmol/L [facility] [place] Calcium [Mass/Vol] 10.4 mg/dL 8.6 - 10. 6 mg/dL [facility] [place] Chloride [Moles/Vol] 104 mmol/L 98 - 10 7 mmol/L [facility] [place] CO2 [Moles/Vol] 27 mmol/L 21 - 32 mmol/L [facility] [place] Creatinine [Mass/Vol] 1.39 mg/dL High 0.50 - 1.30 mg/dL [facility] [place] GFR/1.73 sq M.predicted among non-blacks MDRD (S/P/Bld) [Vol rate/Area] 61 mL/min/{1.73_m2} - PINF [facility] [place] Glucose [Mass/Vol] 102 mg/dL High 74 - 99 mg/dL [facility] [place] Interpretation and review of laboratory results Abnormal [facility] [place] Potassium [Moles/Vol] 4.5 mmol/L 3.5 - 5.3 mmol/L [facility] [place] Sodium [Moles/Vol] 141 mmol/L 136 - 145 mmol/L [facility] [place] Urea nitrogen [Mass/Vol] 17 mg/dL 6 - 23 mg/dL [facility] [place] Bedside PICC Imagingon 10-20 IMAGING Blood CultureOrdered By: Rubina Saravia on 10-20-2024 Bacteria identified Cx Nom (Bld) Staphylococcus hominis Abnormal [facility] CBC W Auto Differential pane l (Bld)on 10-20-2024 Basophils (Bld) [#/Vol] 0.11 10*3/uL High [facility] [place] Basophils/100 WBC (Bld) 0.7 % 0.0 - 2.0 % [facility] [place] Eosinophils (Bld) [#/Vol] 0.35 10*3/uL [facility] [place] Eosinophils/100 WBC (Bld) 2.1 % 0.0 - 6.0 % [facility] [place] Erythrocyte distribution width (RBC) [Ratio] 18.1 % High 11.5 - 14.5 % [facility] [place] Hematocrit (Bld) [Volume fraction] 27.2 % Low 41.0 - 52.0 % [facility] [place] Hemoglobin (Bld) [Mass/Vol] 8.4 g/dL Low 13.5 - 17.5 g/dL [facility] [place] Immature granulocytes (Bld) [#/Vol] 0.12 10*3/uL [facility] [place] Immature granulocytes/100 WBC (Bld) 0.7 % 0.0 - 0.9 % [facility] [place] Interpretation and review of laboratory results Abnormal [facility] [place] Lymphocytes (Bld) [#/Vol] 1.68 10*3/uL [facility] [place] Lymphocytes/100 WBC (Bld) 10.2 % 13.0 - 44.0 % [facility] [place] MCH (RBC) [Entitic mass] 27.9 pg 26.0 - 34.0 pg [facility] [place] MCHC (RBC) [Mass/Vol] 30.9 g/dL Low 32.0 - 36.0 g/dL [facility] [place] MCV (RBC) [Entitic vol] 90 fL 80 - 100 fL [facility] [place] Monocytes (Bld) [#/Vol] 1.29 10*3/uL High [facility] [place] Monocytes/100 WBC (Bld) 7.8 % 2.0 - 10.0 % [facility] [place] Neutrophils (Bld) [#/Vol] 12.9 10*3/uL [facility] Neutrophils/100 WBC (Bld) 78.5 % 40.0 - 80.0 % [facility] [place] Nucleated RBC/100 WBC (Bld) [Ratio] 0 % [facility] [place] Platelets (Bld) [#/Vol] 604 10*3/uL High [facility] [place] RBC (Bld) [#/Vol] 3.01 10*6/uL Low [facility] WBC (Bld) [#/Vol] 16.5 10*3/uL [facility] Magnesiumon 10-20-2024 Magnesium [Mass/Vol] 2.13 mg/dL 1.60 - 2.40 mg/dL [facility] [place] No Panel Informationon 10-20 Interpretation and review of laboratory results Normal [facility] Phosphoruson 10-20-2024 Phosphate [Mass/Vol] 3.2 mg/dL 2.5 - 4 .9 mg/dL [facility] [place] Basic metabolic 2000 panelon 10-19-2024 Anion gap [Moles/Vol] 17 mmol/L 10 - 2 0 mmol/L [facility] [place] Calcium [Mass/Vol] 10.2 mg/dL 8.6 - 10. 6 mg/dL [facility] [place] Chloride [Moles/Vol] 102 mmol/L 98 - 10 7 mmol/L [facility] [place] CO2 [Moles/Vol] 25 mmol/L 21 - 32 mmol/L [facility] [place] Creatinine [Mass/Vol] 1.67 mg/dL High 0.50 - 1.30 mg/dL [facility] [place] GFR/1.73 sq M.predicted among non-blacks MDRD (S/P/Bld) [Vol rate/Area] 49 mL/min/{1.73_m2} Low - PINF [facility] [place] Glucose [Mass/Vol] 124 mg/dL High 74 - 99 mg/dL [facility] [place] Interpretation and review of laboratory results Abnormal [facility] [place] Potassium [Moles/Vol] 4 mmol/L 3.5 - 5.3 mmol/L [facility] [place] Sodium [Moles/Vol] 140 mmol/L 136 - 145 mmol/L [facility] [place] Urea nitrogen [Mass/Vol] 15 mg/dL 6 - 23 mg/dL [facility] CBC W Auto Differential pane l (Bld)on 10-19-2024 Basophils (Bld) [#/Vol] 0.1 10*3/uL [facility] [place] Basophils/100 WBC (Bld) 0.7 % 0.0 - 2.0 % [facility] [place] Eosinophils (Bld) [#/Vol] 0.41 10*3/uL [facility] [place] Eosinophils/100 WBC (Bld) 2.8 % 0.0 - 6.0 % [facility] [place] Erythrocyte distribution width (RBC) [Ratio] 17.8 % High 11.5 - 14.5 % [facility] [place] Hematocrit (Bld) [Volume fraction] 25.9 % Low 41.0 - 52.0 % [facility] [place] Hemoglobin (Bld) [Mass/Vol] 8 g/dL Low 13.5 - 17.5 g/dL [facility] [place] Immature granulocytes (Bld) [#/Vol] 0.12 10*3/uL [facility] [place] Immature granulocytes/100 WBC (Bld) 0.8 % 0.0 - 0.9 % [facility] [place] Interpretation and review of laboratory results Abnormal [facility] [place] Lymphocytes (Bld) [#/Vol] 2.16 10*3/uL [facility] [place] Lymphocytes/100 WBC (Bld) 14.6 % 13.0 - 44.0 % [facility] [place] MCH (RBC) [Entitic mass] 27.5 pg 26.0 - 34.0 pg [facility] [place] MCHC (RBC) [Mass/Vol] 30.9 g/dL Low 32.0 - 36.0 g/dL [facility] [place] MCV (RBC) [Entitic vol] 89 fL 80 - 100 fL [facility] [place] Monocytes (Bld) [#/Vol] 1.23 10*3/uL High [facility] [place] Monocytes/100 WBC (Bld) 8.3 % 2.0 - 10.0 % [facility] [place] Neutrophils (Bld) [#/Vol] 10.82 10*3/uL High [facility] [place] Neutrophils/100 WBC (Bld) 72.8 % 40.0 - 80.0 % [facility] [place] Nucleated RBC/100 WBC (Bld) [Ratio] 0 % [facility] [place] Platelets (Bld) [#/Vol] 609 10*3/uL High [facility] [place] RBC (Bld) [#/Vol] 2.91 10*6/uL [facility] WBC (Bld) [#/Vol] 14.8 10*3/uL High [facility] Comprehensive metabolic 2000 panelon 10-19-2024 Albumin BCP dye [Mass/Vol] 3.4 g/dL 3.4 - 5.0 g/dL [facility] [place] ALP [Catalytic activity/Vol] 76 U/L 33 - 120 U/L [facility] [place] ALT With P-5'-P [Catalytic activity/Vol] 28 U/L 10 - 52 U/L [facility] [place] Anion gap [Moles/Vol] 11 mmol/L 10 - 2 0 mmol/L [facility] [place] AST With P-5'-P [Catalytic activity/Vol] 25 U/L 9 - 39 U/L [facility] [place] Bilirubin [Mass/Vol] 0.2 mg/dL 0.0 - 1 .2 mg/dL [facility] [place] Calcium [Mass/Vol] 10.2 mg/dL 8.6 - 10. 6 mg/dL [facility] [place] Chloride [Moles/Vol] 103 mmol/L 98 - 10 7 mmol/L [facility] [place] CO2 [Moles/Vol] 29 mmol/L 21 - 32 mmol/L [facility] [place] Creatinine [Mass/Vol] 1.55 mg/dL High 0.50 - 1.30 mg/dL [facility] [place] GFR/1.73 sq M.predicted among non-blacks MDRD (S/P/Bld) [Vol rate/Area] 54 mL/min/{1.73_m2} Low - PINF [facility] [place] Glucose [Mass/Vol] 98 mg/dL 74 - 99 mg/dL [facility] [place] Interpretation and review of laboratory results Abnormal [facility] [place] Potassium [Moles/Vol] 4.3 mmol/L 3.5 - 5.3 mmol/L [facility] [place] Protein [Mass/Vol] 7.2 g/dL 6.4 - 8.2 g/dL [facility] [place] Sodium [Moles/Vol] 139 mmol/L 136 - 145 mmol/L [facility] [place] Urea nitrogen [Mass/Vol] 16 mg/dL 6 - 23 mg/dL [facility] [place] Magnesiumon 10-19-2024 Magnesium [Mass/Vol] 2.25 mg/dL 1.60 - 2.40 mg/dL [facility] [place] Magnesium [Mass/Vol] 2.03 mg/dL 1.60 - 2.40 mg/dL [facility] [place] Magnesium [Mass/Vol]on 10-19 Interpretation and review of laboratory results Normal [facility] No Panel Informationon 10-19 Interpretation and review of laboratory results Normal [facility] Phosphate [Mass/Vol]on 10-19 Interpretation and review of laboratory results Normal [facility] Phosphoruson 10-19-2024 Phosphate [Mass/Vol] 3.4 mg/dL 2.5 - 4 .9 mg/dL [facility] [place] Phosphate [Mass/Vol] 3.8 mg/dL 2.5 - 4 .9 mg/dL [facility] [place] Vancomycinon 10-19-2024 Vancomycin [Mass/Vol] 16.6 ug/mL 5.0 - 20.0 ug/mL [facility] [place] Vancomycin [Mass/Vol]on Interpretation and review of laboratory results Normal [facility] Bacteria identified Cx Nom ( Bld)Ordered By: Mary Milton on 10-18-2024 Bacteria identified Aer cx Nom (Bld) Positive [facility] [place] Interpretation and review of laboratory results Abnormal [facility] [place] Microscopic observation Gram stain Nom (Unsp spec) Positive Critically abnormal [facility] Blood CultureOrdered By: Bia Milton on 10-18-2024 Bacteria identified Cx Nom (Bld) Marta powers Abnormal [facility] [place] CBC W Auto Differential pane l (Bld)on 10-18-2024 Basophils (Bld) [#/Vol] 0.09 10*3/uL [facility] [place] Basophils/100 WBC (Bld) 0.6 % 0.0 - 2.0 % [facility] [place] Eosinophils (Bld) [#/Vol] 0.35 10*3/uL [facility] [place] Eosinophils/100 WBC (Bld) 2.2 % 0.0 - 6.0 % [facility] [place] Erythrocyte distribution width (RBC) [Ratio] 17.8 % High 11.5 - 14.5 % [facility] [place] Hematocrit (Bld) [Volume fraction] 27.3 % Low 41.0 - 52.0 % [facility] [place] Hemoglobin (Bld) [Mass/Vol] 8.4 g/dL Low 13.5 - 17.5 g/dL [facility] [place] Immature granulocytes (Bld) [#/Vol] 0.17 10*3/uL [facility] [place] Immature granulocytes/100 WBC (Bld) 1.1 % High 0.0 - 0.9 % [facility] [place] Interpretation and review of laboratory results Abnormal [facility] [place] Lymphocytes (Bld) [#/Vol] 2.56 10*3/uL [facility] [place] Lymphocytes/100 WBC (Bld) 16.4 % 13.0 - 44.0 % [facility] [place] MCH (RBC) [Entitic mass] 27.8 pg 26.0 - 34.0 pg [facility] [place] MCHC (RBC) [Mass/Vol] 30.8 g/dL Low 32.0 - 36.0 g/dL [facility] [place] MCV (RBC) [Entitic vol] 90 fL 80 - 100 fL [facility] [place] Monocytes (Bld) [#/Vol] 1.3 10*3/uL High [facility] [place] Monocytes/100 WBC (Bld) 8.3 % 2.0 - 10.0 % [facility] [place] Neutrophils (Bld) [#/Vol] 11.1 10*3/uL High [facility] [place] Neutrophils/100 WBC (Bld) 71.4 % 40.0 - 80.0 % [facility] [place] Nucleated RBC/100 WBC (Bld) [Ratio] 0 % [facility] [place] Platelets (Bld) [#/Vol] 605 10*3/uL High [facility] [place] RBC (Bld) [#/Vol] 3.02 10*6/uL Low [facility] WBC (Bld) [#/Vol] 15.6 10*3/uL High [facility] Comprehensive metabolic 2000 panelon 10-18-2024 Albumin BCP dye [Mass/Vol] 3.4 g/dL 3.4 - 5.0 g/dL [facility] [place] ALP [Catalytic activity/Vol] 70 U/L 33 - 120 U/L [facility] [place] ALT With P-5'-P [Catalytic activity/Vol] 17 U/L 10 - 52 U/L [facility] [place] Anion gap [Moles/Vol] 15 mmol/L 10 - 2 0 mmol/L [facility] [place] AST With P-5'-P [Catalytic activity/Vol] 18 U/L 9 - 39 U/L [facility] [place] Bilirubin [Mass/Vol] 0.2 mg/dL 0.0 - 1 .2 mg/dL [facility] [place] Calcium [Mass/Vol] 10.1 mg/dL 8.6 - 10. 6 mg/dL [facility] [place] Chloride [Moles/Vol] 101 mmol/L 98 - 10 7 mmol/L [facility] [place] CO2 [Moles/Vol] 27 mmol/L 21 - 32 mmol/L [facility] [place] Creatinine [Mass/Vol] 1.72 mg/dL High 0.50 - 1.30 mg/dL [facility] [place] GFR/1.73 sq M.predicted among non-blacks MDRD (S/P/Bld) [Vol rate/Area] 48 mL/min/{1.73_m2} Low - PINF [facility] [place] Glucose [Mass/Vol] 97 mg/dL 74 - 99 mg/dL [facility] [place] Interpretation and review of laboratory results Abnormal [facility] [place] Potassium [Moles/Vol] 4 mmol/L 3.5 - 5.3 mmol/L [facility] [place] Protein [Mass/Vol] 7.1 g/dL 6.4 - 8.2 g/dL [facility] [place] Sodium [Moles/Vol] 139 mmol/L 136 - 145 mmol/L [facility] [place] Urea nitrogen [Mass/Vol] 17 mg/dL 6 - 23 mg/dL [facility] [place] Magnesiumon 10-18-2024 Magnesium [Mass/Vol] 2.13 mg/dL 1.60 - 2.40 mg/dL [facility] [place] No Panel Informationon 10-18 [facility] [place] Interpretation and review of laboratory results Normal [facility] [place] Phosphoruson 10-18-2024 Phosphate [Mass/Vol] 3.2 mg/dL 2.5 - 4 .9 mg/dL [facility] [place] Bacteria identified Cx Nom ( Bld)on 10-17-2024 Interpretation and review of laboratory results Normal [facility] Bacteria identified Cx Nom ( Unsp spec)Ordered By: Mari Monique on 10-17-2024 Beta lactamase organism identified Nom (Isol) Positive [facility] [place] Microscopic observation Gram stain Nom (Unsp spec) No polymorphonuclear leukocytes seen [facility] [place] Microscopic observation Gram stain Nom (Unsp spec) No organisms seen [facility] CBC W Auto Differential pane l (Bld)on 10-17-2024 Basophils (Bld) [#/Vol] 0.09 10*3/uL [facility] [place] Basophils/100 WBC (Bld) 0.5 % 0.0 - 2.0 % [facility] [place] Eosinophils (Bld) [#/Vol] 0.27 10*3/uL [facility] [place] Eosinophils/100 WBC (Bld) 1.6 % 0.0 - 6.0 % [facility] [place] Erythrocyte distribution width (RBC) [Ratio] 16.9 % High 11.5 - 14.5 % [facility] [place] Hematocrit (Bld) [Volume fraction] 25.1 % Low 41.0 - 52.0 % [facility] [place] Hemoglobin (Bld) [Mass/Vol] 8.5 g/dL Low 13.5 - 17.5 g/dL [facility] [place] Immature granulocytes (Bld) [#/Vol] 0.13 10*3/uL [facility] [place] Immature granulocytes/100 WBC (Bld) 0.8 % 0.0 - 0.9 % [facility] [place] Interpretation and review of laboratory results Abnormal [facility] [place] Lymphocytes (Bld) [#/Vol] 2.37 10*3/uL [facility] [place] Lymphocytes/100 WBC (Bld) 14.2 % 13.0 - 44.0 % [facility] [place] MCH (RBC) [Entitic mass] 28.1 pg 26.0 - 34.0 pg [facility] [place] MCHC (RBC) [Mass/Vol] 33.9 g/dL 32.0 - 36.0 g/dL [facility] [place] MCV (RBC) [Entitic vol] 83 fL 80 - 100 fL [facility] [place] Monocytes (Bld) [#/Vol] 1.31 10*3/uL High [facility] [place] Monocytes/100 WBC (Bld) 7.8 % 2.0 - 10.0 % [facility] [place] Neutrophils (Bld) [#/Vol] 12.54 10*3/uL High [facility] [place] Neutrophils/100 WBC (Bld) 75.1 % 40.0 - 80.0 % [facility] [place] Nucleated RBC/100 WBC (Bld) [Ratio] 0 % [facility] [place] Platelets (Bld) [#/Vol] 590 10*3/uL High [facility] [place] RBC (Bld) [#/Vol] 3.02 10*6/uL Low [facility] WBC (Bld) [#/Vol] 16.7 10*3/uL High [facility] Comprehensive metabolic 2000 panelon 10-17-2024 Albumin BCP dye [Mass/Vol] 3.4 g/dL 3.4 - 5.0 g/dL [facility] [place] ALP [Catalytic activity/Vol] 62 U/L 33 - 120 U/L [facility] [place] ALT With P-5'-P [Catalytic activity/Vol] 11 U/L 10 - 52 U/L [facility] [place] Anion gap [Moles/Vol] 16 mmol/L 10 - 2 0 mmol/L [facility] [place] AST With P-5'-P [Catalytic activity/Vol] 35 U/L 9 - 39 U/L [facility] [place] Bilirubin [Mass/Vol] 0.3 mg/dL 0.0 - 1 .2 mg/dL [facility] [place] Calcium [Mass/Vol] 10.2 mg/dL 8.6 - 10. 6 mg/dL [facility] [place] Chloride [Moles/Vol] 103 mmol/L 98 - 10 7 mmol/L [facility] [place] CO2 [Moles/Vol] 25 mmol/L 21 - 32 mmol/L [facility] [place] Creatinine [Mass/Vol] 1.62 mg/dL High 0.50 - 1.30 mg/dL [facility] [place] GFR/1.73 sq M.predicted among non-blacks MDRD (S/P/Bld) [Vol rate/Area] 51 mL/min/{1.73_m2} Low - PINF [facility] [place] Glucose [Mass/Vol] 91 mg/dL 74 - 99 mg/dL [facility] [place] Potassium [Moles/Vol] 5.6 mmol/L High 3.5 - 5.3 mmol/L [facility] [place] Protein [Mass/Vol] 7.3 g/dL 6.4 - 8.2 g/dL [facility] [place] Sodium [Moles/Vol] 138 mmol/L 136 - 145 mmol/L [facility] [place] Urea nitrogen [Mass/Vol] 14 mg/dL 6 - 23 mg/dL [facility] [place] Laboratory - Microbiology an d Antimicrobial susceptibilityon 10-17-2024 Bacteria identified Cx Nom (Bld) No growth at 4 days - FINAL REPORT [facility] [place] Magnesiumon 10-17-2024 Magnesium [Mass/Vol] 2.25 mg/dL 1.60 - 2.40 mg/dL [facility] [place] Magnesium [Mass/Vol] 2.52 mg/dL High 1.60 - 2.40 mg/dL [facility] [place] Magnesium [Mass/Vol]on 10-17 Interpretation and review of laboratory results Normal [facility] [place] No Panel Informationon 10-17 [facility] [place] Interpretation and review of laboratory results Normal [facility] [place] Interpretation and review of laboratory results Abnormal [facility] Phosphoruson 10-17-2024 Phosphate [Mass/Vol] 4.1 mg/dL 2.5 - 4 .9 mg/dL [facility] [place] Renal function 2000 panelon 10-17-2024 Albumin BCP dye [Mass/Vol] 3.7 g/dL 3.4 - 5.0 g/dL [facility] [place] Anion gap [Moles/Vol] 14 mmol/L 10 - 2 0 mmol/L [facility] [place] Calcium [Mass/Vol] 10.4 mg/dL 8.6 - 10. 6 mg/dL [facility] [place] Chloride [Moles/Vol] 99 mmol/L 98 - 10 7 mmol/L [facility] [place] CO2 [Moles/Vol] 27 mmol/L 21 - 32 mmol/L [facility] [place] Creatinine [Mass/Vol] 1.62 mg/dL High 0.50 - 1.30 mg/dL [facility] [place] GFR/1.73 sq M.predicted among non-blacks MDRD (S/P/Bld) [Vol rate/Area] 51 mL/min/{1.73_m2} Low - PINF [facility] [place] Glucose [Mass/Vol] 98 mg/dL 74 - 99 mg/dL [facility] [place] Interpretation and review of laboratory results Abnormal [facility] [place] Phosphate [Mass/Vol] 3.7 mg/dL 2.5 - 4 .9 mg/dL [facility] [place] Potassium [Moles/Vol] 4.3 mmol/L 3.5 - 5.3 mmol/L [facility] [place] Sodium [Moles/Vol] 136 mmol/L 136 - 145 mmol/L [facility] [place] Urea nitrogen [Mass/Vol] 17 mg/dL 6 - 23 mg/dL [facility] [place] Tissue/Wound Culture/SmearOr dered By: Mari Eneida on 10-17-2024 Bacteria identified Cx Nom (Unsp spec) (1+) Rare Mixed Anaerobic Bacteria [facility] [place] Bacteria identified Cx Nom (Unsp spec) Negative [facility] [place] Vancomycinon 10-17-2024 Vancomycin [Mass/Vol] 16.8 ug/mL 5.0 - 20.0 ug/mL [facility] [place] Vancomycin [Mass/Vol]on 09-20 [facility] [place] Blood type and Indirect anti body screen panel (Bld)on 10-16-2024 ABO group Nom (Bld) [facility] antibody screen Ql Negative [facility] [place] D Ag Ql (Bld) Positive [facility] CBC W Auto Differential pane l (Bld)on 10-16-2024 Basophils (Bld) [#/Vol] 0.1 10*3/uL [facility] [place] Basophils/100 WBC (Bld) 0.7 % 0.0 - 2.0 % [facility] [place] Eosinophils (Bld) [#/Vol] 0.41 10*3/uL [facility] [place] Eosinophils/100 WBC (Bld) 2.8 % 0.0 - 6.0 % [facility] [place] Erythrocyte distribution width (RBC) [Ratio] 16.9 % High 11.5 - 14.5 % [facility] [place] Hematocrit (Bld) [Volume fraction] 27.8 % Low 41.0 - 52.0 % [facility] [place] Hemoglobin (Bld) [Mass/Vol] 8.9 g/dL Low 13.5 - 17.5 g/dL [facility] [place] Immature granulocytes (Bld) [#/Vol] 0.17 10*3/uL [facility] [place] Immature granulocytes/100 WBC (Bld) 1.2 % High 0.0 - 0.9 % [facility] [place] Interpretation and review of laboratory results Abnormal [facility] [place] Lymphocytes (Bld) [#/Vol] 2.54 10*3/uL [facility] [place] Lymphocytes/100 WBC (Bld) 17.6 % 13.0 - 44.0 % [facility] [place] MCH (RBC) [Entitic mass] 27.8 pg 26.0 - 34.0 pg [facility] [place] MCHC (RBC) [Mass/Vol] 32 g/dL 32.0 - 36.0 g/dL [facility] [place] MCV (RBC) [Entitic vol] 87 fL 80 - 100 fL [facility] [place] Monocytes (Bld) [#/Vol] 1.08 10*3/uL High [facility] [place] Monocytes/100 WBC (Bld) 7.5 % 2.0 - 10.0 % [facility] [place] Neutrophils (Bld) [#/Vol] 10.11 10*3/uL High [facility] [place] Neutrophils/100 WBC (Bld) 70.2 % 40.0 - 80.0 % [facility] [place] Nucleated RBC/100 WBC (Bld) [Ratio] 0 % [facility] [place] Platelets (Bld) [#/Vol] 633 10*3/uL High [facility] [place] RBC (Bld) [#/Vol] 3.2 10*6/uL Low [facility] WBC (Bld) [#/Vol] 14.4 10*3/uL [facility] Comprehensive metabolic 2000 panelon 10-16-2024 Albumin BCP dye [Mass/Vol] 3.4 g/dL 3.4 - 5.0 g/dL [facility] [place] ALP [Catalytic activity/Vol] 60 U/L 33 - 120 U/L [facility] [place] ALT With P-5'-P [Catalytic activity/Vol] 10 U/L 10 - 52 U/L [facility] [place] Anion gap [Moles/Vol] 13 mmol/L 10 - 2 0 mmol/L [facility] [place] AST With P-5'-P [Catalytic activity/Vol] 11 U/L 9 - 39 U/L [facility] [place] Bilirubin [Mass/Vol] 0.2 mg/dL 0.0 - 1 .2 mg/dL [facility] [place] Calcium [Mass/Vol] 10 mg/dL 8.6 - 10. 6 mg/dL [facility] [place] Chloride [Moles/Vol] 103 mmol/L 98 - 10 7 mmol/L [facility] [place] CO2 [Moles/Vol] 26 mmol/L 21 - 32 mmol/L [facility] [place] Creatinine [Mass/Vol] 1.5 mg/dL High 0.50 - 1.30 mg/dL [facility] [place] GFR/1.73 sq M.predicted among non-blacks MDRD (S/P/Bld) [Vol rate/Area] 56 mL/min/{1.73_m2} Low - PINF [facility] [place] Glucose [Mass/Vol] 104 mg/dL High 74 - 99 mg/dL [facility] [place] Interpretation and review of laboratory results Abnormal [facility] [place] Potassium [Moles/Vol] 4.3 mmol/L 3.5 - 5.3 mmol/L [facility] [place] Protein [Mass/Vol] 7.2 g/dL 6.4 - 8.2 g/dL [facility] [place] Sodium [Moles/Vol] 138 mmol/L 136 - 145 mmol/L [facility] [place] Urea nitrogen [Mass/Vol] 12 mg/dL 6 - 23 mg/dL [facility] [place] Electrocardiogram, 12-lead P RN ACS symptomsOrdered By: Campos Villa on 10-16-2024 Atrial Rate 126 BPM [facility] [place] Work Phone: [phone] P [place] 72 degrees [facility] [place] Work Phone: [phone] P Offset 218 ms [facility] [place] Work Phone: [phone] P [place] 153 ms [facility] [place] Work Phone: [phone] [place] Interval 144 ms [facility] [place] Work Phone: [phone] Q [place] 225 ms [facility] [place] Work Phone: [phone] QRS Count 21 beats [facility] [place] Work Phone: [phone] QRS Duration 94 ms [facility] [place] Work Phone: [phone] QT Interval 324 ms [facility] [place] Work Phone: [phone] QTC Calculation(Bazett) 469 ms [facility] [place] Work Phone: [phone] QTC [place] 415 ms [facility] [place] Work Phone: [phone] R [place] 49 degrees [facility] [place] Work Phone: [phone] T [place] 101 degrees [facility] [place] Work Phone: [phone] T Offset 387 ms [facility] [place] Work Phone: [phone] Ventricular Rate 126 BPM [facility] Work Phone: [phone] [facility] [place] Work Phone: [phone] Electrocardiogram, 12-lead P RN ACS symptomson 10-16-2024 [facility] Work Phone: [phone] Magnesiumon 10-16-2024 Magnesium [Mass/Vol] 2.16 mg/dL 1.60 - 2.40 mg/dL [facility] [place] No Panel Informationon 10-16 Interpretation and review of laboratory results Normal [facility] PT and aPTT panel Coag (PPP) on 10-16-2024 aPTT Coag (PPP) [Time] 30 s Un [facility] INR Coag (PPP) [Relative time] 1 {INR} 0.9 - 1.1 [facility] [place] Interpretation and review of laboratory results Normal [facility] [place] PT Coag (PPP) [Time] 11.[address] [facility] Phosphoruson 10-16-2024 Phosphate [Mass/Vol] 3.2 mg/dL 2.5 - 4 .9 mg/dL [facility] [place] CBC W Auto Differential pane l (Bld)on 10-15-2024 Basophils (Bld) [#/Vol] 0.1 10*3/uL [facility] [place] Basophils/100 WBC (Bld) 0.8 % 0.0 - 2.0 % [facility] [place] Eosinophils (Bld) [#/Vol] 0.4 10*3/uL [facility] [place] Eosinophils/100 WBC (Bld) 3.1 % 0.0 - 6.0 % [facility] [place] Erythrocyte distribution width (RBC) [Ratio] 17.1 % High 11.5 - 14.5 % [facility] [place] Hematocrit (Bld) [Volume fraction] 29.1 % Low 41.0 - 52.0 % [facility] [place] Hemoglobin (Bld) [Mass/Vol] 9.2 g/dL Low 13.5 - 17.5 g/dL [facility] [place] Immature granulocytes (Bld) [#/Vol] 0.09 10*3/uL [facility] [place] Immature granulocytes/100 WBC (Bld) 0.7 % 0.0 - 0.9 % [facility] [place] Interpretation and review of laboratory results Abnormal [facility] [place] Lymphocytes (Bld) [#/Vol] 2.77 10*3/uL [facility] [place] Lymphocytes/100 WBC (Bld) 21.4 % 13.0 - 44.0 % [facility] [place] MCH (RBC) [Entitic mass] 28.4 pg 26.0 - 34.0 pg [facility] [place] MCHC (RBC) [Mass/Vol] 31.6 g/dL Low 32.0 - 36.0 g/dL [facility] [place] MCV (RBC) [Entitic vol] 90 fL 80 - 100 fL [facility] [place] Monocytes (Bld) [#/Vol] 0.98 10*3/uL [facility] [place] Monocytes/100 WBC (Bld) 7.6 % 2.0 - 10.0 % [facility] [place] Neutrophils (Bld) [#/Vol] 8.58 10*3/uL High [facility] [place] Neutrophils/100 WBC (Bld) 66.4 % 40.0 - 80.0 % [facility] [place] Nucleated RBC/100 WBC (Bld) [Ratio] 0 % [facility] [place] Platelets (Bld) [#/Vol] 635 10*3/uL High [facility] [place] RBC (Bld) [#/Vol] 3.24 10*6/uL [facility] WBC (Bld) [#/Vol] 12.9 10*3/uL [facility] 2000 panelon 10-15-2024 Albumin BCP dye [Mass/Vol] 3.3 g/dL Low 3.4 - 5.0 g/dL [facility] [place] ALP [Catalytic activity/Vol] 60 U/L 33 - 120 U/L [facility] [place] ALT With P-5'-P [Catalytic activity/Vol] 9 U/L Low 10 - 52 U/L [facility] [place] Anion gap [Moles/Vol] 13 mmol/L 10 - 2 0 mmol/L [facility] [place] AST With P-5'-P [Catalytic activity/Vol] 9 U/L 9 - 39 U/L [facility] [place] Bilirubin [Mass/Vol] 0.2 mg/dL 0.0 - 1 .2 mg/dL [facility] [place] Calcium [Mass/Vol] 9.5 mg/dL 8.6 - 10. 6 mg/dL [facility] [place] Chloride [Moles/Vol] 102 mmol/L 98 - 10 7 mmol/L [facility] [place] CO2 [Moles/Vol] 27 mmol/L 21 - 32 mmol/L [facility] [place] Creatinine [Mass/Vol] 1.53 mg/dL High 0.50 - 1.30 mg/dL [facility] [place] GFR/1.73 sq M.predicted among non-blacks MDRD (S/P/Bld) [Vol rate/Area] 55 mL/min/{1.73_m2} Low - PINF [facility] [place] Glucose [Mass/Vol] 94 mg/dL 74 - 99 mg/dL [facility] [place] Interpretation and review of laboratory results Abnormal [facility] [place] Potassium [Moles/Vol] 4 mmol/L 3.5 - 5.3 mmol/L [facility] [place] Protein [Mass/Vol] 6.9 g/dL 6.4 - 8.2 g/dL [facility] [place] Sodium [Moles/Vol] 138 mmol/L 136 - 145 mmol/L [facility] [place] Urea nitrogen [Mass/Vol] 10 mg/dL 6 - 23 mg/dL [facility] [place] Magnesiumon 10-15-2024 Magnesium [Mass/Vol] 2.11 mg/dL 1.60 - 2.40 mg/dL [facility] [place] No Panel Informationon 10-15 Interpretation and review of laboratory results Normal [facility] Phosphoruson 10-15-2024 Phosphate [Mass/Vol] 2.5 mg/dL 2.5 - 4 .9 mg/dL [facility] [place] CBC W Auto Differential pane l (Bld)on 10-14-2024 Basophils (Bld) [#/Vol] 0.08 10*3/uL [facility] [place] Basophils/100 WBC (Bld) 0.5 % 0.0 - 2.0 % [facility] [place] Eosinophils (Bld) [#/Vol] 0.3 10*3/uL [facility] [place] Eosinophils/100 WBC (Bld) 2 % 0.0 - 6.0 % [facility] [place] Erythrocyte distribution width (RBC) [Ratio] 17.2 % High 11.5 - 14.5 % [facility] [place] Hematocrit (Bld) [Volume fraction] 26.6 % Low 41.0 - 52.0 % [facility] [place] Hemoglobin (Bld) [Mass/Vol] 8.1 g/dL Low 13.5 - 17.5 g/dL [facility] [place] Immature granulocytes (Bld) [#/Vol] 0.13 10*3/uL [facility] [place] Immature granulocytes/100 WBC (Bld) 0.9 % 0.0 - 0.9 % [facility] [place] Interpretation and review of laboratory results Abnormal [facility] [place] Lymphocytes (Bld) [#/Vol] 1.96 10*3/uL [facility] [place] Lymphocytes/100 WBC (Bld) 13.1 % 13.0 - 44.0 % [facility] [place] MCH (RBC) [Entitic mass] 27.6 pg 26.0 - 34.0 pg [facility] [place] MCHC (RBC) [Mass/Vol] 30.5 g/dL Low 32.0 - 36.0 g/dL [facility] [place] MCV (RBC) [Entitic vol] 91 fL 80 - 100 fL [facility] [place] Monocytes (Bld) [#/Vol] 0.84 10*3/uL [facility] [place] Monocytes/100 WBC (Bld) 5.6 % 2.0 - 10.0 % [facility] [place] Neutrophils (Bld) [#/Vol] 11.69 10*3/uL High [facility] [place] Neutrophils/100 WBC (Bld) 77.9 % 40.0 - 80.0 % [facility] [place] Nucleated RBC/100 WBC (Bld) [Ratio] 0 % [facility] [place] Platelets (Bld) [#/Vol] 561 10*3/uL High [facility] [place] RBC (Bld) [#/Vol] 2.94 10*6/uL Low [facility] WBC (Bld) [#/Vol] 15 10*3/uL [facility] Comprehensive metabolic 2000 panelon 10-14-2024 Albumin BCP dye [Mass/Vol] 3.1 g/dL Low 3.4 - 5.0 g/dL [facility] [place] ALP [Catalytic activity/Vol] 60 U/L 33 - 120 U/L [facility] [place] ALT With P-5'-P [Catalytic activity/Vol] 9 U/L Low 10 - 52 U/L [facility] [place] Anion gap [Moles/Vol] 13 mmol/L 10 - 2 0 mmol/L [facility] [place] AST With P-5'-P [Catalytic activity/Vol] 6 U/L Low 9 - 39 U/L [facility] [place] Bilirubin [Mass/Vol] 0.2 mg/dL 0.0 - 1 .2 mg/dL [facility] [place] Calcium [Mass/Vol] 9 mg/dL 8.6 - 10. 6 mg/dL [facility] [place] Chloride [Moles/Vol] 102 mmol/L 98 - 10 7 mmol/L [facility] [place] CO2 [Moles/Vol] 26 mmol/L 21 - 32 mmol/L [facility] [place] Creatinine [Mass/Vol] 1.44 mg/dL High 0.50 - 1.30 mg/dL [facility] [place] GFR/1.73 sq M.predicted among non-blacks MDRD (S/P/Bld) [Vol rate/Area] 59 mL/min/{1.73_m2} Low - PINF [facility] [place] Glucose [Mass/Vol] 163 mg/dL High 74 - 99 mg/dL [facility] [place] Interpretation and review of laboratory results Abnormal [facility] [place] Potassium [Moles/Vol] 3.9 mmol/L 3.5 - 5.3 mmol/L [facility] [place] Protein [Mass/Vol] 6.4 g/dL 6.4 - 8.2 g/dL [facility] [place] Sodium [Moles/Vol] 137 mmol/L 136 - 145 mmol/L [facility] [place] Urea nitrogen [Mass/Vol] 15 mg/dL 6 - 23 mg/dL [facility] [place] Extra Urine [place] Tubeon 09-19 Extra Tube Hold for add-ons. [facility] Lactateon 10-14-2024 Lactate [Moles/Vol] 1.2 mmol/L 0.4 - 2. 0 mmol/L [facility] [place] Lactate [Moles/Vol] 2.3 mmol/L High 0.4 - 2. 0 mmol/L [facility] [place] Lactate [Moles/Vol]on 2024 Interpretation and review of laboratory results Normal [facility] Interpretation and review of laboratory results Abnormal [facility] No Panel Informationon 10-14 [facility] [place] Vancomycinon 10-14-2024 Vancomycin [Mass/Vol] 14.7 ug/mL 5.0 - 20.0 ug/mL [facility] [place] Vancomycin [Mass/Vol]on 09-19 Interpretation and review of laboratory results Normal [facility] Bacteria identified Cx Nom ( Unsp spec)Ordered By: Alejandra Andrade on 10-13-2024 Beta lactamase organism identified Nom (Isol) Positive [facility] [place] Interpretation and review of laboratory results Abnormal [facility] [place] Microscopic observation Gram stain Nom (Unsp spec) No polymorphonuclear leukocytes seen Abnormal [facility] [place] Microscopic observation Gram stain Nom (Unsp spec) Positive Abnormal [facility] CBC W Auto Differential pane l (Bld)on 10-13-2024 Basophils (Bld) [#/Vol] 0.06 10*3/uL [facility] [place] Basophils/100 WBC (Bld) 0.2 % 0.0 - 2.0 % [facility] [place] Eosinophils (Bld) [#/Vol] 0.18 10*3/uL [facility] [place] Eosinophils/100 WBC (Bld) 0.7 % 0.0 - 6.0 % [facility] [place] Erythrocyte distribution width (RBC) [Ratio] 16.9 % High 11.5 - 14.5 % [facility] [place] Hematocrit (Bld) [Volume fraction] 25.6 % Low 41.0 - 52.0 % [facility] [place] Hemoglobin (Bld) [Mass/Vol] 8.3 g/dL Low 13.5 - 17.5 g/dL [facility] [place] Immature granulocytes (Bld) [#/Vol] 0.15 10*3/uL [facility] [place] Immature granulocytes/100 WBC (Bld) 0.6 % 0.0 - 0.9 % [facility] [place] Interpretation and review of laboratory results Abnormal [facility] [place] Lymphocytes (Bld) [#/Vol] 2.13 10*3/uL [facility] [place] Lymphocytes/100 WBC (Bld) 8.9 % 13.0 - 44.0 % [facility] [place] MCH (RBC) [Entitic mass] 28.4 pg 26.0 - 34.0 pg [facility] [place] MCHC (RBC) [Mass/Vol] 32.4 g/dL 32.0 - 36.0 g/dL [facility] [place] MCV (RBC) [Entitic vol] 88 fL 80 - 100 fL [facility] [place] Monocytes (Bld) [#/Vol] 1.37 10*3/uL High [facility] [place] Monocytes/100 WBC (Bld) 5.7 % 2.0 - 10.0 % [facility] [place] Neutrophils (Bld) [#/Vol] 20.15 10*3/uL High [facility] [place] Neutrophils/100 WBC (Bld) 83.9 % 40.0 - 80.0 % [facility] [place] Nucleated RBC/100 WBC (Bld) [Ratio] 0 % [facility] [place] Platelets (Bld) [#/Vol] 579 10*3/uL High [facility] [place] RBC (Bld) [#/Vol] 2.92 10*6/uL [facility] WBC (Bld) [#/Vol] 24 10*3/uL [facility] Erythrocyte distribution width (RBC) [Ratio] 17 % High 11.5 - 14.5 % [facility] [place] Hematocrit (Bld) [Volume fraction] 34.1 % Low 41.0 - 52.0 % [facility] [place] Hemoglobin (Bld) [Mass/Vol] 10.5 g/dL Low 13.5 - 17.5 g/dL [facility] [place] Immature granulocytes (Bld) [#/Vol] 0.32 10*3/uL [facility] [place] Immature granulocytes/100 WBC (Bld) 1.1 % High 0.0 - 0.9 % [facility] [place] MCH (RBC) [Entitic mass] 27.9 pg 26.0 - 34.0 pg [facility] [place] MCHC (RBC) [Mass/Vol] 30.8 g/dL Low 32.0 - 36.0 g/dL [facility] [place] MCV (RBC) [Entitic vol] 91 fL 80 - 100 fL [facility] [place] Nucleated RBC/100 WBC (Bld) [Ratio] 0 % [facility] [place] Platelets (Bld) [#/Vol] 755 10*3/uL High [facility] [place] RBC (Bld) [#/Vol] 3.76 10*6/[facility]L [facility] (Bld) [#/Vol] 30.1 10*3/uL High [facility] Comprehensive metabolic 2000 panelon 10-13-2024 Albumin BCP dye [Mass/Vol] 3.9 g/dL 3.4 - 5.0 g/dL [facility] [place] ALP [Catalytic activity/Vol] 76 U/L 33 - 120 U/L [facility] [place] ALT With P-5'-P [Catalytic activity/Vol] 9 U/L Low 10 - 52 U/L [facility] [place] Anion gap [Moles/Vol] 18 mmol/L 10 - 2 0 mmol/L [facility] [place] AST With P-5'-P [Catalytic activity/Vol] 10 U/L 9 - 39 U/L [facility] [place] Bilirubin [Mass/Vol] 0.4 mg/dL 0.0 - 1 .2 mg/dL [facility] [place] Calcium [Mass/Vol] 10.4 mg/dL 8.6 - 10. 6 mg/dL [facility] [place] Chloride [Moles/Vol] 100 mmol/L 98 - 10 7 mmol/L [facility] [place] CO2 [Moles/Vol] 26 mmol/L 21 - 32 mmol/L [facility] [place] Creatinine [Mass/Vol] 1.84 mg/dL High 0.50 - 1.30 mg/dL [facility] [place] GFR/1.73 sq M.predicted among non-blacks MDRD (S/P/Bld) [Vol rate/Area] 44 mL/min/{1.73_m2} Low - PINF [facility] [place] Glucose [Mass/Vol] 144 mg/dL High 74 - 99 mg/dL [facility] [place] Interpretation and review of laboratory results Abnormal [facility] [place] Potassium [Moles/Vol] 4.5 mmol/L 3.5 - 5.3 mmol/L [facility] [place] Protein [Mass/Vol] 7.5 g/dL 6.4 - 8.2 g/dL [facility] [place] Sodium [Moles/Vol] 139 mmol/L 136 - 145 mmol/L [facility] [place] Urea nitrogen [Mass/Vol] 19 mg/dL 6 - 23 mg/dL [facility] ECG 12-LEADon 10-13-2024 ECG 12-LEAD Ventricular Rate 126 Atrial Rate 126 P-R Interval 144 QRS Duration 94 Q-T Interval 324 QTC Calculation([place]azett) 469 P [place] 72 R [place] 49 T [place] 101 QRS Count 21 Q Onset 225 P Onset 153 P Offset 218 T Offset 387 QTC [place] [address] & T wave abnormality, consider lateral ischemia Abnormal ECG Confirmed by Campos Villa ([id number]) on 10/16/2024 6:09:33 PM Normal [facility] ([facility] Gas and Carbon monoxide and Electrolytes panel (BldA)on 10-13-2024 Anion gap 4 (BldA) [Moles/Vol] 11 [facility] Base excess Calc (Bld) [Moles/Vol] -1 mmol/L -2.0 - 3.0 mmol/L [facility] Calcium.ionized (BldA) [Moles/Vol] 1.3 mmol/L 1.10 - 1.33 mmol/L [facility] Chloride (BldA) [Moles/Vol] 104 mmol/L 98 - 107 mmol/L [facility] CO2 (Bld) [Partial pressure] 42 mm[Hg] [facility] Glucose [Mass/Vol] 152 mg/dL High 74 - 99 mg/dL [facility] HCO3 (Bld) [Moles/Vol] 24.3 mmol/L 22.0 - 26.0 mmol/L [facility] Hematocrit Est (Bld) [Volume fraction] 29 % Low 41.0 - 52.0 % [facility] Hemoglobin (Bld) [Mass/Vol] 9.5 g/dL Low 13.5 - 17.5 g/dL [facility] Inhaled oxygen concentration 28 % [facility] Interpretation and review of laboratory results Abnormal [facility] Lactate (BldA) [Moles/Vol] 0.9 mmol/L 0.4 - 2.0 mmol/L [facility] Oxygen (Bld) [Partial pressure] 73 mm[Hg] Low [facility] Oxyhemoglobin (BldA) [Mass fraction] 94.4 % 94.0 - 98.0 % [facility] pH (Bld) 7.37 [pH] Low 7.38 - 7.42 pH [facility] Potassium (BldA) [Moles/Vol] 4.1 mmol/L 3.5 - 5.3 mmol/L [facility] Sodium (BldA) [Moles/Vol] 135 mmol/L Low 136 - 145 mmol/L [facility] Gas panel (BldV)on Anion gap 4 (BldV) [Moles/Vol] 10 mmol/L 10.0 - 25.0 mmol/L [facility] Base excess Calc (BldV) [Moles/Vol] -0.4000 mmol/L -2.0 - 3.0 mmol/L [facility] Calcium.ionized (BldV) [Moles/Vol] 1.31 mmol/L 1.10 - 1.33 mmol/L [facility] Chloride (BldV) [Moles/Vol] 104 mmol/L 98 - 107 mmol/L [facility] CO2 (BldV) [Partial pressure] 51 mm[Hg] [facility] Glucose [Mass/Vol] 154 mg/dL High 74 - 99 mg/dL [facility] HCO3 (Bld) [Moles/Vol] 26.3 mmol/L High 22.0 - 26.0 mmol/L [facility] Hematocrit Est (Bld) [Volume fraction] 36 % Low 41.0 - 52.0 % [facility] Hemoglobin (Bld) [Mass/Vol] 12 g/dL Low 13.5 - 17.5 g/dL [facility] Inhaled oxygen concentration 28 % [facility] Interpretation and review of laboratory results Abnormal [facility] Lactate (BldV) [Moles/Vol] 2.2 mmol/L High 0.4 - 2.0 mmol/L [facility] Oxygen (BldV) [Partial pressure] 36 mm[Hg] [facility] Oxygen saturation in Venous blood 53 % 45 - 75 % [facility] Oxyhemoglobin (BldV) [Mass fraction] 52.4 % 45.0 - 75.0 % [facility] pH (BldV) 7.32 [pH] Low 7.33 - 7.43 pH [facility] Potassium (BldV) [Moles/Vol] 4.3 mmol/L 3.5 - 5.3 mmol/L [facility] Sodium (BldV) [Moles/Vol] 136 mmol/L 136 - 145 mmol/L [facility] Lactateon 10-13-2024 Lactate [Moles/Vol] 2.6 mmol/L High 0.4 - 2. 0 mmol/L [facility] Lactate [Moles/Vol] 1.8 mmol/L 0.4 - 2. 0 mmol/L [facility] Lactate [Moles/Vol]on 2024 Interpretation and review of laboratory results Abnormal [facility] Interpretation and review of laboratory results Normal [facility] Manual differential performe d Ql (Bld)on 10-13-2024 Band form neutrophils (Bld) [#/Vol] 4.67 10*3/uL High [facility] Band form neutrophils/100 WBC (Bld) 15.5 % 0.0 - 5.0 % [facility] Basophils (Bld) [#/Vol] 0 10*3/uL [facility] Basophils/100 WBC (Bld) 0 % 0.0 - 2.0 % [facility] Cells Counted Total (Bld) [#] 116 {cells} [facility] Eosinophils (Bld) [#/Vol] 0 10*3/uL [facility] Eosinophils/100 WBC (Bld) 0 % 0.0 - 6.0 % [facility] Lymphocytes (Bld) [#/Vol] 1.02 10*3/uL Low [facility] Lymphocytes/100 WBC (Bld) 3.4 % 13.0 - 44.0 % [facility] Monocytes (Bld) [#/Vol] 0.78 10*3/uL [facility] Monocytes/100 WBC (Bld) 2.6 % 2.0 - 10.0 % [facility] Myelocytes (Bld) [#/Vol] 0.27 10*3/uL [facility] Myelocytes/100 WBC (Bld) 0.9 % 0.0 - 0.0 % [facility] Neutrophils (Bld) [#/Vol] 27.25 10*3/uL High [facility] Promyelocytes (Bld) [#/Vol] 0.27 10*3/uL [facility] Promyelocytes/100 WBC (Bld) 0.9 % 0.0 - 0.0 % [facility] RBC morphology finding Nom (Bld) No significant RBC morphology present [facility] Segmented neutrophils (Bld) [#/Vol] 22.58 10*3/uL High [facility] Segmented neutrophils/100 WBC (Bld) 75 % 40.0 - 80.0 % [facility] Variant lymphocytes (Bld) [#/Vol] 0.51 10*3/uL [facility] Variant lymphocytes/100 WBC (Bld) 1.7 % 0.0 - 2.0 % [facility] Natriuretic peptide B [Mass/ Vol]on 10-13-2024 Interpretation and review of laboratory results Normal [facility] Natriuretic peptide B (Bld) [Mass/Vol] 6 pg/mL 0 - 99 pg/mL [facility] No Panel Informationon 10-13 Interpretation and review of laboratory results Abnormal [facility] Tissue/Wound Culture/SmearOr dered By: Alejandra Andrade on 10-13-2024 Bacteria identified Cx Nom (Unsp spec) (4+) Abundant Mixed Gram-Positive and Gram-Negative Bacteria [facility] Bacteria identified Cx Nom (Unsp spec) (4+) Abundant Mixed Anaerobic Bacteria [facility] Tropinin I.cardiac panel Hig h sensitivity methodon 10-13-2024 Interpretation and review of laboratory results Normal [facility] Troponin I, High Sensitivity on 10-13-2024 Tropinin I.cardiac panel High sensitivity method ng/L 0 - 53 ng/L [facility] Urinalysis complete W Reflex Culture panel (U)Ordered By: Vinita Arenas on 10-13-2024 Appearance (U) Clear Clear [facility] Bilirubin (U) [Mass/Vol] Negative NEGATIVE [facility] Color (U) Light-Yellow Light-Yellow , Yellow, Dark-Yellow [facility] Glucose Auto test strip (U) [Mass/Vol] Normal Normal mg/dL [facility] Interpretation and review of laboratory results Abnormal [facility] Ketones (U) [Mass/Vol] Negative NEGAT SULEMA mg/dL [facility] Leukocyte esterase Auto test strip Ql (U) Negative NEGATIVE [facility] Nitrite Auto test strip Ql (U) Negative NEGATIVE [facility] pH (U) 6.5 [pH] 5.0, 5.5, 6.0, 6.5, 7.0, 7.5, 8.0 [facility] Protein (U) [Mass/Vol] 10 (TRACE) NEGAT SULEMA, 10 (TRACE), 20 (TRACE) mg/dL [facility] RBC (U) [#/Vol] 0.03 (TRACE) Abnormal NEGATIVE [facility] Specific gravity (U) [Rel density] 1.023 1.005 - 1.035 [facility] Urobilinogen (U) [Mass/Vol] Normal Normal mg/dL [facility] Urinalysis complete W Reflex Culture panel (U)on 10-13-2024 Interpretation and review of laboratory results Normal [facility] Work Phone: RBC Auto (Urine sed) [#/Area] 3-5 NONE, 1-2, 3-5 /HPF [facility] Work Phone: WBC Auto (Urine sed) [#/Area] 1-5 1-5, NONE /HPF [facility] Work Phone: CBC W Auto Differential pane l (Bld)on 10-12-2024 Basophils (Bld) [#/Vol] 0.09 10*3/uL [facility] Basophils/100 WBC (Bld) 0.6 % 0.0 - 2.0 % [facility] Eosinophils (Bld) [#/Vol] 0.36 10*3/uL [facility] Eosinophils/100 WBC (Bld) 2.5 % 0.0 - 6.0 % [facility] Erythrocyte distribution width (RBC) [Ratio] 17.3 % High 11.5 - 14.5 % [facility] Hematocrit (Bld) [Volume fraction] 30.8 % Low 41.0 - 52.0 % [facility] Hemoglobin (Bld) [Mass/Vol] 9.5 g/dL Low 13.5 - 17.5 g/dL [facility] Immature granulocytes (Bld) [#/Vol] 0.15 10*3/uL [facility] Immature granulocytes/100 WBC (Bld) 1 % High 0.0 - 0.9 % [facility] Interpretation and review of laboratory results Abnormal [facility] Lymphocytes (Bld) [#/Vol] 2.52 10*3/uL [facility] Lymphocytes/100 WBC (Bld) 17.2 % 13.0 - 44.0 % [facility] MCH (RBC) [Entitic mass] 27.3 pg 26.0 - 34.0 pg [facility] MCHC (RBC) [Mass/Vol] 30.8 g/dL Low 32.0 - 36.0 g/dL [facility] MCV (RBC) [Entitic vol] 89 fL 80 - 100 fL [facility] Monocytes (Bld) [#/Vol] 1.39 10*3/uL High [facility] Monocytes/100 WBC (Bld) 9.5 % 2.0 - 10.0 % [facility] Neutrophils (Bld) [#/Vol] 10.11 10*3/uL High [facility] Neutrophils/100 WBC (Bld) 69.2 % 40.0 - 80.0 % [facility] Nucleated RBC/100 WBC (Bld) [Ratio] 0 % [facility] Platelets (Bld) [#/Vol] 633 10*3/uL High [facility] RBC (Bld) [#/Vol] 3.48 10*6/uL Low [facility] WBC (Bld) [#/Vol] 14.6 10*3/uL High [facility] Comprehensive metabolic 2000 panelon 10-12-2024 Albumin BCP dye [Mass/Vol] 3.5 g/dL 3.4 - 5.0 g/dL [facility] ALP [Catalytic activity/Vol] 66 U/L 33 - 120 U/L [facility] ALT With P-5'-P [Catalytic activity/Vol] 8 U/L Low 10 - 52 U/L [facility] Anion gap [Moles/Vol] 14 mmol/L 10 - 2 0 mmol/L [facility] AST With P-5'-P [Catalytic activity/Vol] 11 U/L 9 - 39 U/L [facility] Bilirubin [Mass/Vol] 0.3 mg/dL 0.0 - 1 .2 mg/dL [facility] Calcium [Mass/Vol] 10 mg/dL 8.6 - 10. 6 mg/dL [facility] Chloride [Moles/Vol] 101 mmol/L 98 - 10 7 mmol/L [facility] CO2 [Moles/Vol] 25 mmol/L 21 - 32 mmol/L [facility] Creatinine [Mass/Vol] 1.61 mg/dL High 0.50 - 1.30 mg/dL [facility] GFR/1.73 sq M.predicted among non-blacks MDRD (S/P/Bld) [Vol rate/Area] 51 mL/min/{1.73_m2} Low - PINF [facility] Glucose [Mass/Vol] 100 mg/dL High 74 - 99 mg/dL [facility] Interpretation and review of laboratory results Abnormal [facility] Potassium [Moles/Vol] 4 mmol/L 3.5 - 5.3 mmol/L [facility] Protein [Mass/Vol] 7.4 g/dL 6.4 - 8.2 g/dL [facility] Sodium [Moles/Vol] 136 mmol/L 136 - 145 mmol/L [facility] Urea nitrogen [Mass/Vol] 16 mg/dL 6 - 23 mg/dL [facility] No Panel Informationon 10-12 [facility] Vancomycinon 10-12-2024 Vancomycin [Mass/Vol] 13.6 ug/mL 5.0 - 20.0 ug/mL [facility] Vancomycin [Mass/Vol]on 09-19 Interpretation and review of laboratory results Normal [facility] Blood type and Indirect anti body screen panel (Bld)on 10-11-2024 ABO group Nom (Bld) [facility] antibody screen Ql Negative [facility] D Ag Ql (Bld) Positive [facility] C-reactive proteinon 025 CRP [Mass/Vol] 7.72 mg/dL High NINF - 1.00 mg/dL [facility] CBC W Auto Differential pane l (Bld)on 10-11-2024 Basophils (Bld) [#/Vol] 0.06 10*3/uL [facility] Basophils/100 WBC (Bld) 0.4 % 0.0 - 2.0 % [facility] Eosinophils (Bld) [#/Vol] 0.39 10*3/uL [facility] Eosinophils/100 WBC (Bld) 2.7 % 0.0 - 6.0 % [facility] Erythrocyte distribution width (RBC) [Ratio] 17.2 % High 11.5 - 14.5 % [facility] Hematocrit (Bld) [Volume fraction] 28.7 % Low 41.0 - 52.0 % [facility] Hemoglobin (Bld) [Mass/Vol] 9.6 g/dL Low 13.5 - 17.5 g/dL [facility] Immature granulocytes (Bld) [#/Vol] 0.17 10*3/uL [facility] Immature granulocytes/100 WBC (Bld) 1.2 % High 0.0 - 0.9 % [facility] Interpretation and review of laboratory results Abnormal [facility] Lymphocytes (Bld) [#/Vol] 3.37 10*3/uL [facility] Lymphocytes/100 WBC (Bld) 23.6 % 13.0 - 44.0 % [facility] MCH (RBC) [Entitic mass] 28.2 pg 26.0 - 34.0 pg [facility] MCHC (RBC) [Mass/Vol] 33.4 g/dL 32.0 - 36.0 g/dL [facility] MCV (RBC) [Entitic vol] 84 fL 80 - 100 fL [facility] Monocytes (Bld) [#/Vol] 1.62 10*3/uL High [facility] Monocytes/100 WBC (Bld) 11.3 % 2.0 - 10.0 % [facility] Neutrophils (Bld) [#/Vol] 8.67 10*3/uL High [facility] Neutrophils/100 WBC (Bld) 60.8 % 40.0 - 80.0 % [facility] Nucleated RBC/100 WBC (Bld) [Ratio] 0 % [facility] Platelets (Bld) [#/Vol] 650 10*3/uL High [facility] RBC (Bld) [#/Vol] 3.4 10*6/uL Low [facility] WBC (Bld) [#/Vol] 14.3 10*3/uL High [facility] CRP [Mass/Vol]on 10-11-2024 Interpretation and review of laboratory results Abnormal [facility] ESR Westergren method (Bld) [Velocity]on 10-11-2024 ESR (Bld) [Velocity] mm/h High 0 - 20 mm/h [facility] Interpretation and review of laboratory results Abnormal [facility] Extra Urine Rhodes Tubeon 09-19 Extra Tube Hold for add-ons. [facility] Ferritinon 10-11-2024 Ferritin [Mass/Vol] 259 ng/mL 20 - 300 ng/mL [facility] Ferritin [Mass/Vol]on 2024 Interpretation and review of laboratory results Normal [facility] Iron and Iron binding capaci ty panelon 10-11-2024 Interpretation and review of laboratory results Abnormal [facility] Iron [Mass/Vol] 24 ug/dL Low 35 - 150 ug/dL [facility] Iron binding capacity [Mass/Vol] 218 ug/dL Low 240 - 445 ug/dL [facility] Iron binding capacity.unsaturated [Mass/Vol] 194 ug/dL 110 - 370 ug/dL [facility] Iron saturation [Mass fraction] 11 % Low 25 - 45 % [facility] Magnesiumon 10-11-2024 Magnesium [Mass/Vol] 2.19 mg/dL 1.60 - 2.40 mg/dL [facility] Magnesium [Mass/Vol]on 10-11 Interpretation and review of laboratory results Normal [facility] No Panel Informationon 10-11 [facility] Renal function 2000 panelon 10-11-2024 Albumin BCP dye [Mass/Vol] 3.3 g/dL Low 3.4 - 5.0 g/dL [facility] Anion gap [Moles/Vol] 12 mmol/L 10 - 2 0 mmol/L [facility] Calcium [Mass/Vol] 9.4 mg/dL 8.6 - 10. 6 mg/dL [facility] Chloride [Moles/Vol] 106 mmol/L 98 - 10 7 mmol/L [facility] CO2 [Moles/Vol] 24 mmol/L 21 - 32 mmol/L [facility] Creatinine [Mass/Vol] 1.6 mg/dL High 0.50 - 1.30 mg/dL [facility] GFR/1.73 sq M.predicted among non-blacks MDRD (S/P/Bld) [Vol rate/Area] 52 mL/min/{1.73_m2} Low - PINF [facility] Glucose [Mass/Vol] 79 mg/dL 74 - 99 mg/dL [facility] Interpretation and review of laboratory results Abnormal [facility] Phosphate [Mass/Vol] 3.8 mg/dL 2.5 - 4 .9 mg/dL [facility] Potassium [Moles/Vol] 4.1 mmol/L 3.5 - 5.3 mmol/L [facility] Sodium [Moles/Vol] 138 mmol/L 136 - 145 mmol/L [facility] Urea nitrogen [Mass/Vol] 20 mg/dL 6 - 23 mg/dL [facility] Urinalysis complete W Reflex Culture panel (U)on 10-11-2024 Appearance (U) Clear Clear [facility] Bilirubin (U) [Mass/Vol] Negative NEGATIVE [facility] Color (U) Light-Yellow Light-Yellow , Yellow, Dark-Yellow [facility] Glucose Auto test strip (U) [Mass/Vol] Normal Normal mg/dL [facility] Interpretation and review of laboratory results Abnormal [facility] Ketones (U) [Mass/Vol] Negative NEGAT SULEMA mg/dL [facility] Leukocyte esterase Auto test strip Ql (U) Negative NEGATIVE [facility] Nitrite Auto test strip Ql (U) Negative NEGATIVE [facility] pH (U) 7 [pH] 5.0, 5.5, 6.0, 6.5, 7.0, 7.5, 8.0 [facility] Protein (U) [Mass/Vol] Negative NEGAT SULEMA, 10 (TRACE), 20 (TRACE) mg/dL [facility] RBC (U) [#/Vol] Negative NEGATIVE [facility] Specific gravity (U) [Rel density] 1.037 Abnormal 1.005 - 1.035 [facility] Urobilinogen (U) [Mass/Vol] Normal Normal mg/dL [facility] Urine electrolyteson 025 Chloride (U) [Moles/Vol] 123 mmol/L [facility] Chloride/Creatinine Ratio 89 [facility] Creatinine (U) [Mass/Vol] 138.4 mg/dL 20.0 - 370.0 mg/dL [facility] Potassium (U) [Moles/Vol] 50 mmol/L [facility] Potassium/Creatinine (U) [Ratio] 36 Not established mmol/g Creat [facility] Sodium (U) [Moles/Vol] 123 mmol/L [facility] Sodium/Creatinine (U) [Ratio] 89 Not established. mmol/g [facility] Blood type and Indirect anti body screen panel (Bld)on 10-10-2024 ABO group Nom (Bld) A [facility] Blood group antibody screen Ql Negative [facility] D Ag Ql (Bld) Positive [facility] CBC W Auto Differential pane l (Bld)on 10-10-2024 Basophils (Bld) [#/Vol] 0.08 10*3/uL [facility] Basophils/100 WBC (Bld) 0.5 % 0.0 - 2.0 % [facility] Eosinophils (Bld) [#/Vol] 0.25 10*3/uL [facility] Eosinophils/100 WBC (Bld) 1.4 % 0.0 - 6.0 % [facility] Erythrocyte distribution width (RBC) [Ratio] 17.4 % High 11.5 - 14.5 % [facility] Hematocrit (Bld) [Volume fraction] 31.9 % Low 41.0 - 52.0 % [facility] Hemoglobin (Bld) [Mass/Vol] 10.5 g/dL Low 13.5 - 17.5 g/dL [facility] Immature granulocytes (Bld) [#/Vol] 0.4 10*3/uL [facility] Immature granulocytes/100 WBC (Bld) 2.3 % High 0.0 - 0.9 % [facility] Interpretation and review of laboratory results Abnormal [facility] Lymphocytes (Bld) [#/Vol] 2.73 10*3/uL [facility] Lymphocytes/100 WBC (Bld) 15.6 % 13.0 - 44.0 % [facility] MCH (RBC) [Entitic mass] 27.5 pg 26.0 - 34.0 pg [facility] MCHC (RBC) [Mass/Vol] 32.9 g/dL 32.0 - 36.0 g/dL [facility] MCV (RBC) [Entitic vol] 84 fL 80 - 100 fL [facility] Monocytes (Bld) [#/Vol] 1.6 10*3/uL [facility] Monocytes/100 WBC (Bld) 9.1 % 2.0 - 10.0 % [facility] Neutrophils (Bld) [#/Vol] 12.45 10*3/uL High [facility] Neutrophils/100 WBC (Bld) 71.1 % 40.0 - 80.0 % [facility] Nucleated RBC/100 WBC (Bld) [Ratio] 0 % [facility] Platelets (Bld) [#/Vol] 721 10*3/uL [facility] RBC (Bld) [#/Vol] 3.82 10*6/uL Low [facility] WBC (Bld) [#/Vol] 17.5 10*3/uL [facility] CT Pelvis W contrast Mp UH MMODAL UH MMODAL [facility] Work Phone: Radiology Study observation (narrative) [facility] Work Phone: CT Pelvis W contrast IVOrder ed By: Beronica Valentin on 10-10-2024 [facility] Work Phone: Comprehensive metabolic 2000 panelon 10-10-2024 Albumin BCP dye [Mass/Vol] 3.8 g/dL 3.4 - 5.0 g/dL [facility] ALP [Catalytic activity/Vol] 79 U/L 33 - 120 U/L [facility] ALT With P-5'-P [Catalytic activity/Vol] 14 U/L 10 - 52 U/L [facility] Anion gap [Moles/Vol] 16 mmol/L 10 - 2 0 mmol/L [facility] AST With P-5'-P [Catalytic activity/Vol] 9 U/L 9 - 39 U/L [facility] Bilirubin [Mass/Vol] 0.2 mg/dL 0.0 - 1 .2 mg/dL [facility] Calcium [Mass/Vol] 10.4 mg/dL 8.6 - 10. 6 mg/dL [facility] Chloride [Moles/Vol] 104 mmol/L 98 - 10 7 mmol/L [facility] CO2 [Moles/Vol] 23 mmol/L 21 - 32 mmol/L [facility] Creatinine [Mass/Vol] 1.69 mg/dL High 0.50 - 1.30 mg/dL [facility] GFR/1.73 sq M.predicted among non-blacks MDRD (S/P/Bld) [Vol rate/Area] 49 mL/min/{1.73_m2} Low - PINF [facility] Glucose [Mass/Vol] 105 mg/dL High 74 - 99 mg/dL [facility] Interpretation and review of laboratory results Abnormal [facility] Potassium [Moles/Vol] 4.1 mmol/L 3.5 - 5.3 mmol/L [facility] Protein [Mass/Vol] 7.9 g/dL 6.4 - 8.2 g/dL [facility] Sodium [Moles/Vol] 139 mmol/L 136 - 145 mmol/L [facility] Urea nitrogen [Mass/Vol] 21 mg/dL 6 - 23 mg/dL [facility] Gas panel (BldV)on 5 Anion gap 4 (BldV) [Moles/Vol] 11 mmol/L 10.0 - 25.0 mmol/L [facility] Base excess Calc (BldV) [Moles/Vol] 0.9 mmol/L -2.0 - 3.0 mmol/L [facility] Calcium.ionized (BldV) [Moles/Vol] 1.31 mmol/L 1.10 - 1.33 mmol/L [facility] Chloride (BldV) [Moles/Vol] 106 mmol/L 98 - 107 mmol/L [facility] CO2 (BldV) [Partial pressure] 38 mm[Hg] Low [facility] Glucose [Mass/Vol] 109 mg/dL High 74 - 99 mg/dL [facility] HCO3 (Bld) [Moles/Vol] 25.2 mmol/L 22.0 - 26.0 mmol/L [facility] Hematocrit Est (Bld) [Volume fraction] 31 % Low 41.0 - 52.0 % [facility] Hemoglobin (Bld) [Mass/Vol] 10.2 g/dL Low 13.5 - 17.5 g/dL [facility] Inhaled oxygen concentration 21 % [facility] Interpretation and review of laboratory results Abnormal [facility] Lactate (BldV) [Moles/Vol] 1.2 mmol/L 0.4 - 2.0 mmol/L [facility] Oxygen (BldV) [Partial pressure] 43 mm[Hg] [facility] Oxygen saturation in Venous blood 78 % High 45 - 75 % [facility] Oxyhemoglobin (BldV) [Mass fraction] 74.1 % 45.0 - 75.0 % [facility] pH (BldV) 7.43 [pH] 7.33 - 7.43 pH [facility] Potassium (BldV) [Moles/Vol] 4.7 mmol/L 3.5 - 5.3 mmol/L [facility] Sodium (BldV) [Moles/Vol] 137 mmol/L 136 - 145 mmol/L [facility] PT and aPTT panel Coag (PPP) on 10-10-2024 aPTT Coag (PPP) [Time] 32 s Un [facility] INR Coag (PPP) [Relative time] 1.2 {INR} High 0.9 - 1.1 [facility] Interpretation and review of laboratory results Abnormal [facility] PT Coag (PPP) [Time] 13.[address] [facility] XR Chest Single viewon 10-10 U[facility] MMODAL UH MMODAL [facility] Work Phone: Radiology Study observation (narrative) [facility] Work Phone: XR Chest Single viewOrdered By: Perry Baires on 10-10-2024 [facility] Work Phone: CBC W Auto Differential pane l (Bld)on 09-17-2024 Basophils (Bld) [#/Vol] 0.06 10*3/uL [facility] Basophils/100 WBC (Bld) 0.5 % 0.0 - 2.0 % [facility] Eosinophils (Bld) [#/Vol] 0.41 10*3/uL [facility] Eosinophils/100 WBC (Bld) 3.3 % 0.0 - 6.0 % [facility] Erythrocyte distribution width (RBC) [Ratio] 17.2 % High 11.5 - 14.5 % [facility] Hematocrit (Bld) [Volume fraction] 27.5 % Low 41.0 - 52.0 % [facility] Hemoglobin (Bld) [Mass/Vol] 8.5 g/dL Low 13.5 - 17.5 g/dL [facility] Immature granulocytes (Bld) [#/Vol] 0.22 10*3/uL [facility] Immature granulocytes/100 WBC (Bld) 1.8 % High 0.0 - 0.9 % [facility] Comment on above: Immature Granulocyte Count (IG) includes promyelocytes, myelocytes and metamyelocytes but does not include bands. Percent differential counts (%) should be interpreted in the context of the absolute cell counts (cells/UL). Interpretation and review of laboratory results Abnormal [facility] Lymphocytes (Bld) [#/Vol] 2.5 10*3/uL [facility] Lymphocytes/100 WBC (Bld) 20.3 % 13.0 - 44.0 % [facility] MCH (RBC) [Entitic mass] 27.2 pg 26.0 - 34.0 pg [facility] MCHC (RBC) [Mass/Vol] 30.9 g/dL Low 32.0 - 36.0 g/dL [facility] MCV (RBC) [Entitic vol] 88 fL 80 - 100 fL [facility] Monocytes (Bld) [#/Vol] 0.83 10*3/uL [facility] Monocytes/100 WBC (Bld) 6.8 % 2.0 - 10.0 % [facility] Neutrophils (Bld) [#/Vol] 8.27 10*3/uL High [facility] Comment on above: Percent differential counts (%) should be interpreted in the context of the absolute cell counts (cells/uL). Neutrophils/100 WBC (Bld) 67.3 % 40.0 - 80.0 % [facility] Nucleated RBC/100 WBC (Bld) [Ratio] 0 % [facility] Platelets (Bld) [#/Vol] 635 10*3/uL High [facility] RBC (Bld) [#/Vol] 3.13 10*6/uL Low [facility] WBC (Bld) [#/Vol] 12.3 10*3/uL [facility] Cryptococcus sp Ag LA Ql (Un sp spec)Ordered By: Makenna Grider on 09-17-2024 Interpretation and review of laboratory results Normal [facility] Fungitell Beta-D Glucan Seru mon 09-17-2024 Fungitell Beta-D Glucan,Serum <31 NINF - 80 pg/mL [facility] Comment on above: Interpretation: The Fungitell assay does not detect certain fungal species such as the genus Cryptococcus (Karli et al. 1991) which produces very low levels of (1-3)-Sjcx-G-Mcqhgw. The assay also does not detect the Zygomycetes such as Absidia, Mucor and Rhizopus (Jason et al. 1994) which are not known to produce (1-3)-Ewcb-G-Avzasv. In addition, the yeast phase of Blastomyces dermatitidis produces little (1-3)-Jcvo-X-Lehrtg and may not be detected by the [...] characteristics for these modifications were determined by [employer]. If sample result is greater than 500 pg/mL, physician may order a titer of the sample. Please contact [employer] if you would like to order a retest of this sample to obtain an actual value. Samples are held for 1 week after initial testing date. Testing Performed at: [facility] [address] [place] [address], [place] [address] Process Inspector: Perry Bueno, PhD ALONDRA (ABB) CLIA # [id number] FLAG Interpretation: A = Abnormal, H = High, L = Low [facility] Laboratory - Chemistry and C hemistry - challengeon 09-17-2024 Magnesium [Mass/Vol] 2.44 mg/dL High 1.60 - 2.40 mg/dL [facility] Laboratory - Microbiology an d Antimicrobial susceptibilityOrdered By: Makenna Grider on 09-17-2024 Cryptococcus sp Ag LA Ql (Unsp spec) Negative Negative, Invalid [facility] No Panel Informationon 09-17 Aspergillus Galactomanan EIA,S 0.027 NINF - 0.500 [facility] Comment on above: Interpretation: Sydni ents with [...] Aspergillus Galactomannan EIA is a product of [employer] and is FDA approved for in vitro diagnostic use. Testing Performed at: [facility] [address] [place] [address] Process Inspector: Perry Bueno, PhD ALONDRA ([facility]) CLIA # [id number] FLAG Interpretation: A = Abnormal, H = High, L = Low [facility] Interpretation and review of laboratory results Abnormal [facility] Renal function 2000 panelon 09-17-2024 Albumin BCP dye [Mass/Vol] 3.1 g/dL Low 3.4 - 5.0 g/dL [facility] Anion gap [Moles/Vol] 16 mmol/L 10 - 2 0 mmol/L [facility] Calcium [Mass/Vol] 9.1 mg/dL 8.6 - 10. 6 mg/dL [facility] Chloride [Moles/Vol] 106 mmol/L 98 - 10 7 mmol/L [facility] CO2 [Moles/Vol] 23 mmol/L 21 - 32 mmol/L [facility] Creatinine [Mass/Vol] 1.89 mg/dL High 0.50 - 1.30 mg/dL [facility] GFR/1.73 sq M.predicted among non-blacks MDRD (S/P/Bld) [Vol rate/Area] 42 mL/min/{1.73_m2} Low - PINF [facility] Comment on above: Calculations of vern mated GFR are performed using the 2020 CKD-EPI Study Refit equation without the race variable for the IDMS-Traceable creatinine methods. https://jasn.asnjournals.org/content/early//ASN.75045 44101 Glucose [Mass/Vol] 85 mg/dL 74 - 99 mg/dL [facility] Phosphate [Mass/Vol] 4.2 mg/dL 2.5 - 4 .9 mg/dL [facility] Comment on above: The performance andres acteristics of phosphorus testing in heparinized plasma have been validated by the individual laboratory site where testing is performed. Testing on heparinized plasma is not approved by the FDA; however, such approval is not necessary. Potassium [Moles/Vol] 4.5 mmol/L 3.5 - 5.3 mmol/L [facility] Sodium [Moles/Vol] 140 mmol/L 136 - 145 mmol/L [facility] Urea nitrogen [Mass/Vol] 15 mg/dL 6 - 23 mg/dL [facility] Bacteria identified Cx Nom ( Unsp spec)on 09-16-2024 Beta lactamase organism identified Nom (Isol) Positive [facility] Work Phone: Microscopic observation Gram stain Nom (Unsp spec) No polymorphonuclear leukocytes seen [facility] Work Phone: [phone] Microscopic observation Gram stain Nom (Unsp spec) No organisms seen [facility] Work Phone: [phone] [facility] Work Phone: [phone] Beta lactamase organism identified Nom (Isol) Positive [facility] Work Phone: [phone] Interpretation and review of laboratory results Abnormal [facility] Work Phone: [phone] Microscopic observation Gram stain Nom (Unsp spec) (4+) Abundant Polymorphonuclear leukocytes Abnormal [facility] Work Phone: Microscopic observation Gram stain Nom (Unsp spec) Positive Abnormal [facility] Work Phone: [facility] Work Phone: Bacteria identified Cx Nom ( Unsp spec)Ordered By: Phil Casas on 09-16-2024 Beta lactamase organism identified Nom (Isol) Positive [facility] Interpretation and review of laboratory results Abnormal [facility] Microscopic observation Gram stain Nom (Unsp spec) (4+) Abundant Polymorphonuclear leukocytes Abnormal [facility] Microscopic observation Gram stain Nom (Unsp spec) Positive Abnormal [facility] CBC W Auto Differential pane l (Bld)on 09-16-2024 Basophils (Bld) [#/Vol] 0.05 10*3/uL [facility] Basophils/100 WBC (Bld) 0.4 % 0.0 - 2.0 % [facility] Eosinophils (Bld) [#/Vol] 0.51 10*3/uL [facility] Eosinophils/100 WBC (Bld) 4.1 % 0.0 - 6.0 % [facility] Erythrocyte distribution width (RBC) [Ratio] 17.1 % High 11.5 - 14.5 % [facility] Hematocrit (Bld) [Volume fraction] 25.8 % Low 41.0 - 52.0 % [facility] Hemoglobin (Bld) [Mass/Vol] 8.2 g/dL Low 13.5 - 17.5 g/dL [facility] Immature granulocytes (Bld) [#/Vol] 0.13 10*3/uL [facility] Immature granulocytes/100 WBC (Bld) 1.1 % High 0.0 - 0.9 % [facility] Comment on above: Immature Granulocyte Count (IG) includes promyelocytes, myelocytes and metamyelocytes but does not include bands. Percent differential counts (%) should be interpreted in the context of the absolute cell counts (cells/UL). Interpretation and review of laboratory results Abnormal [facility] Lymphocytes (Bld) [#/Vol] 2.74 10*3/uL [facility] Lymphocytes/100 WBC (Bld) 22.2 % 13.0 - 44.0 % [facility] MCH (RBC) [Entitic mass] 28.1 pg 26.0 - 34.0 pg [facility] MCHC (RBC) [Mass/Vol] 31.8 g/dL Low 32.0 - 36.0 g/dL [facility] MCV (RBC) [Entitic vol] 88 fL 80 - 100 fL [facility] Monocytes (Bld) [#/Vol] 0.72 10*3/uL [facility] Monocytes/100 WBC (Bld) 5.8 % 2.0 - 10.0 % [facility] Neutrophils (Bld) [#/Vol] 8.18 10*3/uL High [facility] Comment on above: Percent differential counts (%) should be interpreted in the context of the absolute cell counts (cells/uL). Neutrophils/100 WBC (Bld) 66.4 % 40.0 - 80.0 % [facility] Nucleated RBC/100 WBC (Bld) [Ratio] 0 % [facility] Platelets (Bld) [#/Vol] 597 10*3/uL High [facility] RBC (Bld) [#/Vol] 2.92 10*6/uL Low [facility] WBC (Bld) [#/Vol] 12.3 10*3/uL [facility] Laboratory - Chemistry and C hemistry - challengeon 09-16-2024 Magnesium [Mass/Vol] 2.4 mg/dL 1.60 - 2.40 mg/dL [facility] Laboratory - Drug toxicology on 09-16-2024 Vancomycin [Mass/Vol] 17.6 ug/mL 5.0 - 20.0 ug/mL [facility] Vancomycin [Mass/Vol] 18 ug/mL 5.0 - 20.0 ug/mL [facility] Laboratory - Microbiology an d Antimicrobial susceptibilityon 09-16-2024 Bacteria identified Cx Nom (Unsp spec) (1+) Rare Mixed Skin Microorganisms [facility] Work Phone: Bacteria identified Cx Nom (Unsp spec) (3+) Moderate Mixed Anaerobic Bacteria [facility] Work Phone: Bacteria identified Cx Nom (Unsp spec) (4+) Abundant Mixed Aerobic and Anaerobic Bacteria [facility] Work Phone: Laboratory - Microbiology an d Antimicrobial susceptibilityOrdered By: Phil Casas on 09-16-2024 Bacteria identified Cx Nom (Unsp spec) (2+) Few Mixed Aerobic and Anaerobic Bacteria [facility] Magnesium [Mass/Vol]on 09-16 Interpretation and review of laboratory results Normal [facility] No Panel Informationon 09-16 [facility] Renal function 2000 panelon 09-16-2024 Albumin BCP dye [Mass/Vol] 3.2 g/dL Low 3.4 - 5.0 g/dL [facility] Anion gap [Moles/Vol] 15 mmol/L 10 - 2 0 mmol/L [facility] Calcium [Mass/Vol] 9.3 mg/dL 8.6 - 10. 6 mg/dL [facility] Chloride [Moles/Vol] 104 mmol/L 98 - 10 7 mmol/L [facility] CO2 [Moles/Vol] 26 mmol/L 21 - 32 mmol/L [facility] Creatinine [Mass/Vol] 1.88 mg/dL High 0.50 - 1.30 mg/dL [facility] GFR/1.73 sq M.predicted among non-blacks MDRD (S/P/Bld) [Vol rate/Area] 43 mL/min/{1.73_m2} Low - PINF [facility] Comment on above: Calculations of vern mated GFR are performed using the 2020 CKD-EPI Study Refit equation without the race variable for the IDMS-Traceable creatinine methods. https://jasn.asnjournals.org/content//ASN.21219 30919 Glucose [Mass/Vol] 91 mg/dL 74 - 99 mg/dL [facility] Interpretation and review of laboratory results Abnormal [facility] Phosphate [Mass/Vol] 4 mg/dL 2.5 - 4 .9 mg/dL [facility] Comment on above: The performance andres acteristics of phosphorus testing in heparinized plasma have been validated by the individual laboratory site where testing is performed. Testing on heparinized plasma is not approved by the FDA; however, such approval is not necessary. Potassium [Moles/Vol] 4.6 mmol/L 3.5 - 5.3 mmol/L [facility] Sodium [Moles/Vol] 140 mmol/L 136 - 145 mmol/L [facility] Urea nitrogen [Mass/Vol] 15 mg/dL 6 - 23 mg/dL [facility] Vancomycin [Mass/Vol]on 08-20 Interpretation and review of laboratory results Normal [facility] Vancomycin levels can be monitored according to [...] 10.0-20.0 ug/mL [facility] Interpretation and review of laboratory results Normal [facility] Vancomycin levels can be monitored according to [...] 30.0-40.0 ug/mL Trough (all ages): 10.0-20.0 ug/mL [facility] CBC W Auto Differential pane l (Bld)on 09-15-2024 Basophils (Bld) [#/Vol] 0.05 10*3/uL [facility] Basophils/100 WBC (Bld) 0.4 % 0.0 - 2.0 % [facility] Eosinophils (Bld) [#/Vol] 0.43 10*3/uL [facility] Eosinophils/100 WBC (Bld) 3.9 % 0.0 - 6.0 % [facility] Erythrocyte distribution width (RBC) [Ratio] 16.7 % High 11.5 - 14.5 % [facility] Hematocrit (Bld) [Volume fraction] 25.2 % Low 41.0 - 52.0 % [facility] Hemoglobin (Bld) [Mass/Vol] 8.1 g/dL Low 13.5 - 17.5 g/dL [facility] Immature granulocytes (Bld) [#/Vol] 0.15 10*3/uL [facility] Immature granulocytes/100 WBC (Bld) 1.3 % High 0.0 - 0.9 % [facility] Comment on above: Immature Granulocyte Count (IG) includes promyelocytes, myelocytes and metamyelocytes but does not include bands. Percent differential counts (%) should be interpreted in the context of the absolute cell counts (cells/UL). Interpretation and review of laboratory results Abnormal [facility] Lymphocytes (Bld) [#/Vol] 2.38 10*3/uL [facility] Lymphocytes/100 WBC (Bld) 21.4 % 13.0 - 44.0 % [facility] MCH (RBC) [Entitic mass] 28.1 pg 26.0 - 34.0 pg [facility] MCHC (RBC) [Mass/Vol] 32.1 g/dL 32.0 - 36.0 g/dL [facility] MCV (RBC) [Entitic vol] 88 fL 80 - 100 fL [facility] Monocytes (Bld) [#/Vol] 0.69 10*3/uL [facility] Monocytes/100 WBC (Bld) 6.2 % 2.0 - 10.0 % [facility] Neutrophils (Bld) [#/Vol] 7.44 10*3/uL [facility] Comment on above: Percent differential counts (%) should be interpreted in the context of the absolute cell counts (cells/uL). Neutrophils/100 WBC (Bld) 66.8 % 40.0 - 80.0 % [facility] Nucleated RBC/100 WBC (Bld) [Ratio] 0 % [facility] Platelets (Bld) [#/Vol] 526 10*3/uL High [facility] RBC (Bld) [#/Vol] 2.88 10*6/uL Low [facility] WBC (Bld) [#/Vol] 11.1 10*3/uL [facility] Laboratory - Chemistry and C hemistry - challengeon 09-15-2024 Magnesium [Mass/Vol] 2.26 mg/dL 1.60 - 2.40 mg/dL [facility] Magnesium [Mass/Vol]on 09-15 Interpretation and review of laboratory results Normal [facility] No Panel Informationon 09-15 [facility] Renal function 2000 panelon 09-15-2024 Albumin BCP dye [Mass/Vol] 3.1 g/dL Low 3.4 - 5.0 g/dL [facility] Anion gap [Moles/Vol] 15 mmol/L 10 - 2 0 mmol/L [facility] Calcium [Mass/Vol] 8.9 mg/dL 8.6 - 10. 6 mg/dL [facility] Chloride [Moles/Vol] 105 mmol/L 98 - 10 7 mmol/L [facility] CO2 [Moles/Vol] 24 mmol/L 21 - 32 mmol/L [facility] Creatinine [Mass/Vol] 1.77 mg/dL High 0.50 - 1.30 mg/dL [facility] GFR/1.73 sq M.predicted among non-blacks MDRD (S/P/Bld) [Vol rate/Area] 46 mL/min/{1.73_m2} Low - PINF [facility] Comment on above: Calculations of vern mated GFR are performed using the 2020 CKD-EPI Study Refit equation without the race variable for the IDMS-Traceable creatinine methods. https://jasn.asnjournals.org/content//ASN.75719 65853 Glucose [Mass/Vol] 122 mg/dL High 74 - 99 mg/dL [facility] Interpretation and review of laboratory results Abnormal [facility] Phosphate [Mass/Vol] 4.3 mg/dL 2.5 - 4 .9 mg/dL [facility] Comment on above: The performance andres acteristics of phosphorus testing in heparinized plasma have been validated by the individual laboratory site where testing is performed. Testing on heparinized plasma is not approved by the FDA; however, such approval is not necessary. Potassium [Moles/Vol] 4 mmol/L 3.5 - 5.3 mmol/L [facility] Sodium [Moles/Vol] 140 mmol/L 136 - 145 mmol/L [facility] Urea nitrogen [Mass/Vol] 18 mg/dL 6 - 23 mg/dL [facility] Albumin BCP dye [Mass/Vol] 3 g/dL Low 3.4 - 5.0 g/dL [facility] Anion gap [Moles/Vol] 13 mmol/L 10 - 2 0 mmol/L [facility] Calcium [Mass/Vol] 9 mg/dL 8.6 - 10. 6 mg/dL [facility] Chloride [Moles/Vol] 106 mmol/L 98 - 10 7 mmol/L [facility] CO2 [Moles/Vol] 24 mmol/L 21 - 32 mmol/L [facility] Creatinine [Mass/Vol] 1.7 mg/dL High 0.50 - 1.30 mg/dL [facility] GFR/1.73 sq M.predicted among non-blacks MDRD (S/P/Bld) [Vol rate/Area] 48 mL/min/{1.73_m2} Low - PINF [facility] Comment on above: Calculations of vern mated GFR are performed using the 2020 CKD-EPI Study Refit equation without the race variable for the IDMS-Traceable creatinine methods. https://jasn.asnjournals.org/content/early/ASN.38434 88578 Glucose [Mass/Vol] 116 mg/dL High 74 - 99 mg/dL [facility] Interpretation and review of laboratory results Abnormal [facility] Phosphate [Mass/Vol] 4.6 mg/dL 2.5 - 4 .9 mg/dL [facility] Comment on above: The performance [facility] acteristics of phosphorus testing in heparinized plasma have been validated by the individual laboratory site where testing is performed. Testing on heparinized plasma is not approved by the FDA; however, such approval is not necessary. Potassium [Moles/Vol] 4 mmol/L 3.5 - 5.3 mmol/L [facility] Sodium [Moles/Vol] 139 mmol/L 136 - 145 mmol/L [facility] Urea nitrogen [Mass/Vol] 17 mg/dL 6 - 23 mg/dL [facility] Blood type and Indirect anti body screen panel (Bld)on 09-14-2024 ABO group Nom (Bld) [facility] screen Ql Negative [facility] D Ag Ql (Bld) Positive [facility] Comment on above: 2nd ABO test require d. Order and Collect VERAB [facility] CBC W Auto Differential pane l (Bld)on 09-14-2024 Basophils (Bld) [#/Vol] 0.05 10*3/uL [facility] Basophils/100 WBC (Bld) 0.4 % 0.0 - 2.0 % [facility] Eosinophils (Bld) [#/Vol] 0.47 10*3/uL [facility] Eosinophils/100 WBC (Bld) 3.6 % 0.0 - 6.0 % [facility] Erythrocyte distribution width (RBC) [Ratio] 16.8 % High 11.5 - 14.5 % [facility] Hematocrit (Bld) [Volume fraction] 24.4 % Low 41.0 - 52.0 % [facility] Hemoglobin (Bld) [Mass/Vol] 7.9 g/dL Low 13.5 - 17.5 g/dL [facility] Immature granulocytes (Bld) [#/Vol] 0.07 10*3/uL [facility] Immature granulocytes/100 WBC (Bld) 0.5 % 0.0 - 0.9 % [facility] Comment on above: Immature Granulocyte Count (IG) includes promyelocytes, myelocytes and metamyelocytes but does not include bands. Percent differential counts (%) should be interpreted in the context of the absolute cell counts (cells/UL). Interpretation and review of laboratory results Abnormal [facility] Lymphocytes (Bld) [#/Vol] 1.93 10*3/uL [facility] Lymphocytes/100 WBC (Bld) 14.8 % 13.0 - 44.0 % [facility] MCH (RBC) [Entitic mass] 28.1 pg 26.0 - 34.0 pg [facility] MCHC (RBC) [Mass/Vol] 32.4 g/dL 32.0 - 36.0 g/dL [facility] MCV (RBC) [Entitic vol] 87 fL 80 - 100 fL [facility] Monocytes (Bld) [#/Vol] 1.3 10*3/uL High [facility] Monocytes/100 WBC (Bld) 10 % 2.0 - 10.0 % [facility] Neutrophils (Bld) [#/Vol] 9.23 10*3/uL High [facility] Comment on above: Percent differential counts (%) should be interpreted in the context of the absolute cell counts (cells/uL). Neutrophils/100 WBC (Bld) 70.7 % 40.0 - 80.0 % [facility] Nucleated RBC/100 WBC (Bld) [Ratio] 0 % [facility] Platelets (Bld) [#/Vol] 528 10*3/uL High [facility] RBC (Bld) [#/Vol] 2.81 10*6/uL Low [facility] WBC (Bld) [#/Vol] 13.1 10*3/uL High [facility] CBC W Auto Differential pane l (Bld)Ordered By: Estephania Tom on 09-14-2024 Basophils (Bld) [#/Vol] 0.04 10*3/uL [facility] Basophils/100 WBC (Bld) 0.3 % 0.0 - 2.0 % [facility] Eosinophils (Bld) [#/Vol] 0.63 10*3/uL [facility] Eosinophils/100 WBC (Bld) 4.7 % 0.0 - 6.0 % [facility] Erythrocyte distribution width (RBC) [Ratio] 16.7 % High 11.5 - 14.5 % [facility] Hematocrit (Bld) [Volume fraction] 24.7 % Low 41.0 - 52.0 % [facility] Hemoglobin (Bld) [Mass/Vol] 7.8 g/dL Low 13.5 - 17.5 g/dL [facility] Immature granulocytes (Bld) [#/Vol] 0.08 10*3/uL [facility] Immature granulocytes/100 WBC (Bld) 0.6 % 0.0 - 0.9 % [facility] Comment on above: Immature Granulocyte Count (IG) includes promyelocytes, myelocytes and metamyelocytes but does not include bands. Percent differential counts (%) should be interpreted in the context of the absolute cell counts (cells/UL). Interpretation and review of laboratory results Abnormal [facility] Lymphocytes (Bld) [#/Vol] 2.35 10*3/uL [facility] Lymphocytes/100 WBC (Bld) 17.5 % 13.0 - 44.0 % [facility] MCH (RBC) [Entitic mass] 27.6 pg 26.0 - 34.0 pg [facility] MCHC (RBC) [Mass/Vol] 31.6 g/dL Low 32.0 - 36.0 g/dL [facility] MCV (RBC) [Entitic vol] 87 fL 80 - 100 fL [facility] Monocytes (Bld) [#/Vol] 1.18 10*3/uL High [facility] Monocytes/100 WBC (Bld) 8.8 % 2.0 - 10.0 % [facility] Neutrophils (Bld) [#/Vol] 9.13 10*3/uL High [facility] Comment on above: Percent differential counts (%) should be interpreted in the context of the absolute cell counts (cells/uL). Neutrophils/100 WBC (Bld) 68.1 % 40.0 - 80.0 % [facility] Nucleated RBC/100 WBC (Bld) [Ratio] 0 % [facility] Platelets (Bld) [#/Vol] 523 10*3/uL High [facility] RBC (Bld) [#/Vol] 2.83 10*6/uL Low [facility]ive [facility] WBC (Bld) [#/Vol] 13.4 10*3/uL High [facility] Comprehensive metabolic 2000 panelOrdered By: Nabil Bermudez on 09-14-2024 Albumin BCP dye [Mass/Vol] 3 g/dL Low 3.4 - 5.0 g/dL [facility] ALP [Catalytic activity/Vol] 55 U/L 33 - 120 U/L [facility] ALT With P-5'-P [Catalytic activity/Vol] 21 U/L 10 - 52 U/L [facility] Comment on above: Patients treated wit h Sulfasalazine may generate falsely decreased results for ALT. Anion gap [Moles/Vol] 12 mmol/L 10 - 2 0 mmol/L [facility] AST With P-5'-P [Catalytic activity/Vol] 31 U/L 9 - 39 U/L [facility] Bilirubin [Mass/Vol] 0.3 mg/dL 0.0 - 1 .2 mg/dL [facility] Calcium [Mass/Vol] 8.6 mg/dL 8.6 - 10. 6 mg/dL [facility] Chloride [Moles/Vol] 105 mmol/L 98 - 10 7 mmol/L [facility] CO2 [Moles/Vol] 24 mmol/L 21 - 32 mmol/L [facility] Creatinine [Mass/Vol] 1.64 mg/dL High 0.50 - 1.30 mg/dL [facility] GFR/1.73 sq M.predicted among non-blacks MDRD (S/P/Bld) [Vol rate/Area] 50 mL/min/{1.73_m2} Low - PINF [facility] Comment on above: Calculations of vern mated GFR are performed using the 2020 CKD-EPI Study Refit equation without the race variable for the IDMS-Traceable creatinine methods. https://jasn.asnjournals.org/content//ASN.29686 44782 Glucose [Mass/Vol] 137 mg/dL High 74 - 99 mg/dL [facility] Interpretation and review of laboratory results Abnormal [facility] Potassium [Moles/Vol] 4.3 mmol/L 3.5 - 5.3 mmol/L [facility] Protein [Mass/Vol] 6 g/dL Low 6.4 - 8.2 g/dL [facility] Sodium [Moles/Vol] 137 mmol/L 136 - 145 mmol/L [facility] Urea nitrogen [Mass/Vol] 16 mg/dL 6 - 23 mg/dL [facility] ECG 12-LEADon 09-14-2024 ECG 12-LEAD Ventricular Rate 86 Atrial Rate 86 P-R Interval 134 QRS Duration 98 Q-T Interval 360 QTC Calculation(Bazett) 430 P [place] 56 R [place] 62 T [place] 56 QRS Count 14 Q Onset 222 P Onset 155 P Offset 207 T Offset 402 QTC [place] 406 Diagnosis Normal sinus rhythm Normal ECG When compared with ECG of 29-FEB-2024 11:08, No significant change was found Confirmed by Bobby Villa ([id number]) on 09/21/2024 5:01:58 PM Normal [facility] FLUAV and FLUBV RNA MERON+prob e Nom (Unsp spec)on 09-14-2024 FLUAV RNA MERON+probe Ql (Resp) Not detected Not Detected [facility] FLUBV RNA MERON+probe Ql (Resp) Not detected Not Detected [facility] This assay is an in vitro diagnostic multiplex nucleic acid amplification test for the detection and discrimination of Influenza A & B from nasopharyngeal specimens, and has been validated for use at [facility]. Negative results do not preclude Influenza A/B infections, and should not be used as the sole basis for diagnosis, treatment, or other management decisions. If Influenza A/B and RSV PCR results are negative, testing for Parainfluenza virus, Adenovirus and Metapneumovirus is routinely performed for [facility] pediatric oncology and intensive care inpatients, and is available on other patients by placing an add-on request. [facility] HbA1c (Bld) [Mass fraction]o n 09-14-2024 Average glucose Estimated from glycated hemoglobin (Bld) [Mass/Vol] 126 mg/dL Not Established [facility] Interpretation and review of laboratory results Abnormal [facility] Diagnosis of Diabetes-Adults Non-Diabetic: < or = 5.6% Increased risk for developing diabetes: 5.7-6.4% Diagnostic of diabetes: > or = 6.5% [facility] Laboratory - Chemistry and C hemistry - challengeon 09-14-2024 Magnesium [Mass/Vol] 2.14 mg/dL 1.60 - 2.40 mg/dL [facility] Magnesium [Mass/Vol] 2 mg/dL 1.60 - 2.40 mg/dL [facility] Work Phone: Phosphate [Mass/Vol] 3.8 mg/dL 2.5 - 4 .9 mg/dL [facility] Work Phone: Comment on above: The performance andres acteristics of phosphorus testing in heparinized plasma have been validated by the individual laboratory site where testing is performed. Testing on heparinized plasma is not approved by the FDA; however, such approval is not necessary. Laboratory - Drug toxicology on 09-14-2024 Vancomycin [Mass/Vol] 7.3 ug/mL 5.0 - 20.0 ug/mL [facility] Laboratory - Hematology and Cell countson 09-14-2024 HbA1c (Bld) [Mass fraction] 6 % High See comment [facility] Laboratory - Microbiology an d Antimicrobial susceptibilityon 09-14-2024 SARS-CoV-2 (COVID-19) RNA MERON+probe Ql (Resp) Not detected Not Detected [facility] Lipid 1996 panelon 4 Cholesterol [Mass/Vol] 106 mg/dL 0 - 1 99 mg/dL [facility] Comment on above: Age Desirable Borderline High [...] 16.4 mg/dL [facility] Comment on above: Age Very Low Low Normal High 0-19 Y < 35 < 40 40-45 ---- 20-24 Y ---- < 40 >45 ---- >24 Y ---- < 40 40-60 >60 Cholesterol in LDL [Mass/Vol] 63 mg/dL NINF - 99 mg/dL [facility] Comment on above: Near Borderline AGE Desirable Optimal High High Very High 0-19 Y 0 - 109 --- 110-129 >/= 130 ---- 20-24 Y 0 - 119 --- 120-159 >/= 160 ---- >24 Y 0 - 99 100-129 130-159 160-189 >/=190 Cholesterol in VLDL [Mass/Vol] 27 mg/dL 0 - 40 mg/dL [facility] Cholesterol.total/Chol esterol in HDL [Mass ratio] 6.5 {ratio} [facility] Comment on above: Ref Values Desirable < 3.4 High Risk > 5.0 Non HDL Cholesterol 90 mg/dL 0 - 149 mg/dL [facility] Comment on above: Age Desirable Borderline High High Very High 0-19 Y 0 - 119 120 - 144 >/= 145 >/= 160 20-24 Y 0 - 149 150 - 189 >/= 190 ---- >24 Y 30 mg/dL above LDL Cholesterol goal Triglyceride [Mass/Vol] 134 mg/dL 0 - 149 mg/dL [facility] Comment on above: Age Desirable Border line [...] results Normal [facility] Natriuretic peptide B (Bld) [Mass/Vol] 68 pg/mL 0 - 99 pg/mL [facility] <100 pg/mL - Heart failure unlikely 100-299 [...] contact their local laboratory for further information. [facility] No Panel Informationon 09-14 Interpretation and review of laboratory results Normal [facility] Extra Tube Hold for add-ons. [facility] Comment on above: Auto resulted. [facility] Extra Tube Hold for add-ons. [facility] Comment on above: Auto resulted. [facility] Interpretation and review of laboratory results Normal [facility] Interpretation and review of laboratory results Normal [facility] Work Phone: [facility] Work Phone: Renal function 2000 panelon 09-14-2024 Albumin BCP dye [Mass/Vol] 2.9 g/dL Low 3.4 - 5.0 g/dL [facility] Anion gap [Moles/Vol] 13 mmol/L 10 - 2 0 mmol/L [facility] Calcium [Mass/Vol] 8.9 mg/dL 8.6 - 10. 6 mg/dL [facility] Chloride [Moles/Vol] 106 mmol/L 98 - 10 7 mmol/L [facility] CO2 [Moles/Vol] 25 mmol/L 21 - 32 mmol/L [facility] Creatinine [Mass/Vol] 1.54 mg/dL High 0.50 - 1.30 mg/dL [facility] GFR/1.73 sq M.predicted among non-blacks MDRD (S/P/Bld) [Vol rate/Area] 54 mL/min/{1.73_m2} Low - PINF [facility] Comment on above: Calculations of vern mated GFR are performed using the 2020 CKD-EPI Study Refit equation without the race variable for the IDMS-Traceable creatinine methods. https://jasn.asnjournals.org/content/early/ASN.98952 20699 Glucose [Mass/Vol] 99 mg/dL 74 - 99 mg/dL [facility] Interpretation and review of laboratory results Abnormal [facility] Phosphate [Mass/Vol] 4.5 mg/dL 2.5 - 4 .9 mg/dL [facility] Comment on above: The performance andres acteristics of phosphorus testing in heparinized plasma have been validated by the individual laboratory site where testing is performed. Testing on heparinized plasma is not approved by the FDA; however, such approval is not necessary. Potassium [Moles/Vol] 4.2 mmol/L 3.5 - 5.3 mmol/L [facility] Sodium [Moles/Vol] 140 mmol/L 136 - 145 mmol/L [facility] Urea nitrogen [Mass/Vol] 14 mg/dL 6 - 23 mg/dL [facility] SARS-CoV-2 (COVID-19) RNA NA A+probe Ql (Resp)on 09-14-2024 This assay has recei johnson FDA Emergency Use Authorization (EUA) and is [...] and has been validated for use at [facility]. Negative results do not preclude COVID-19 infections and should not be used as the sole basis for diagnosis, treatment, or other management decisions. [facility] Vancomycin [Mass/Vol]on 08-19 Vancomycin levels can be [...] 10.0-20.0 ug/mL [facility] XR Chest Single viewon 09-14 1. Right basilar ban dlike opacities felt to be atelectatic in nature. Otherwise, no definite focal consolidation or sizable pleural effusion. Signed by: Miah Alves 09/14/2024 8:38 AM Dictation workstation: [id number] [facility] Interpreted By: Miah Mojica, STUDY: XR CHEST 1 VIEW; 09/13/2024 10:22 pm INDICATION: Signs/Symptoms:New fever. COMPARISON: None. ACCESSION NUMBER(S): [id number] ORDERING CLINICIAN: BALDOMERO POWELL FINDINGS: 2 AP [...] abdominal findings. BONES: No acute osseous abnormality. [facility] Miah Alves MD - 09/14/2024 Interpreted By: Miah Alves, STUDY: XR CHEST 1 VIEW; 09/13/2024 10:22 pm INDICATION: Signs/Symptoms:New fever. COMPARISON: None. ACCESSION NUMBER(S): [id number] ORDERING CLINICIAN: BALDOMERO POWELL FINDINGS: 2 AP [...] Miah Alves 09/14/2024 8:38 AM Dictation workstation: [id number] [facility] Work Phone: XR Chest Single viewOrdered By: Miah Alves on 09-14-2024 [facility] Work Phone: Consulton 09-13-2024 Consult Candelaria Nolanderton [facility] Wound Care CONSULT Note Kevan La [...] with walking. Wound Care consulted for Hydradenitis suppurativa" PAST MEDICAL HISTORY No past medical history on file. PAST SURGICAL HISTORY No past surgical history on file. FAMILY HISTORY No family history on file. SOCIAL HISTORY ALLERGIES No Known Allergies MEDICATIONS No current facility-administered medications on file prior to encounter. No [...] "PROTIME", "INR" Prealbumin: No results found for: "PREALBUMIN" Albumin:No components found for: "LABALBU" Sed Rate:No [...] to follow Recommend to follow up at [facility] Outpatient wound care center after hospital discharge. Any questions or concerns please secure chat "[facility] wound/ostomy". Thank you for the consult! I [...] my own independent evaluation of this patient. Normal [facility] Consult Pharmacy Managed Vancomycin Dosing [...] creatinine, and vancomycin levels interfaced automatically to [employer] and data has been analyzed and interpreted. [...] DATE: 09/13/24 TIME: 11:05 AM Melva Mcdonald [facility] Clinical Pharmacist Available via Secure Chat [facility] ECG 12-LEADon 09-13-2024 ECG 12-LEAD IMPRESSION: Sinus tachycardia Probable left atrial enlargement RSR' in V1 or V2, probably normal variant Electronically Signed On 09-13-2024 00:56:19 EST by Xiomara Kauffman [facility] ED Nursing Noteon 09-13-2024 ED Nursing Note Pt leaving [facility] ED at this time to go to . Belongings with EMS. Normal [facility] ED Nursing Note Report called to RN. RN informed vancomycin was stopped for transport. Normal [facility] ED Nursing Note Life care ETA 8pm Normal [facility] ED Nursing Note transfer line amada led - pt will go to [facility]- 5016 bed A. Number for report [phone] [facility] ED Nursing Note [facility] Research Nurse called back. Per the Research Physician, the patient does not have to be transferred to [facility]. All that needs to be done is a "Biologic Medication" needs prescribed, and the patient can be admitted here. The patient is in an outpatient study. If any further questions, we can contact AMAN Hancock @ [phone]. Normal [facility] ED Nursing Note Patient is in a stud y at [facility]. He has provided a card for his physician and nurse in the study. I contacted the nurse "Karissa" and left a message @ [phone]. Patient is on the waiting list for and as of 0800 today there are still no rooms available at for this patient. Karissa called back and will contact her MD's over her and will get back with me. Normal [facility] Gas panel (BldV)Ordered By: Bárbara Carty on 09-13-2024 Anion gap 4 (BldV) [Moles/Vol] 10 mmol/L 10.0 - 25.0 mmol/L [facility] Base excess Calc (BldV) [Moles/Vol] 0.1 mmol/L -2.0 - 3.0 mmol/L [facility] Calcium.ionized (BldV) [Moles/Vol] 1.06 mmol/L Low 1.10 - 1.33 mmol/L [facility] Chloride (BldV) [Moles/Vol] 108 mmol/L High 98 - 107 mmol/L [facility] CO2 (BldV) [Partial pressure] 22 mm[Hg] Low [facility] Glucose [Mass/Vol] 149 mg/dL High 74 - 99 mg/dL [facility] HCO3 (Bld) [Moles/Vol] 21.1 mmol/L Low 22.0 - 26.0 mmol/L [facility] Hematocrit Est (Bld) [Volume fraction] 26 % Low 41.0 - 52.0 % [facility] Hemoglobin (Bld) [Mass/Vol] 8.6 g/dL Low 13.5 - 17.5 g/dL [facility] Inhaled oxygen concentration 98 % [facility] Interpretation and review of laboratory results Abnormal [facility] Lactate (BldV) [Moles/Vol] 1.7 mmol/L 0.4 - 2.0 mmol/L [facility] Oxygen (BldV) [Partial pressure] 142 mm[Hg] High [facility] Oxygen saturation in Venous blood 99 % High 45 - 75 % [facility] Oxyhemoglobin (BldV) [Mass fraction] 95.8 % High 45.0 - 75.0 % [facility] pH (BldV) 7.59 [pH] High 7.33 - 7.43 pH [facility] Potassium (BldV) [Moles/Vol] 4.5 mmol/L 3.5 - 5.3 mmol/L [facility] Sodium (BldV) [Moles/Vol] 135 mmol/L Low 136 - 145 mmol/L [facility] No Panel Informationon 09-13 P [place] 54 degrees [facility] IL Interval 126 ms [facility] QRS [place] 49 degrees [facility] QRSD Interval 95 ms [facility] QT Interval 323 ms [facility] QTC Interval 423 ms [facility] T Wave [place] 53 degrees [facility] Sinus tachycardia Probable left atrial enlargement RSR' in V1 or V2, probably normal variant Electronically Signed On 09-13-2024 00:56:19 EST by Xiomara Kauffman Xiomara Urias MD - 09/13/2024 IMPRESSION: Sinus tachycardia Probable left atrial enlargement RSR' in V1 or V2, probably normal variant Electronically Signed On 09-13-2024 00:56:19 EST by Xiomara Kauffman [facility] PT and aPTT panel Coag (PPP) Ordered By: Scalret Wall on 09-13-2024 aPTT Coag (PPP) [Time] [address] [facility] INR Coag (PPP) [Relative time] 1.2 {INR} High 0.9 - 1.1 [facility] Interpretation and review of laboratory results Abnormal [facility] PT Coag (PPP) [Time] 13.5 s High [facility] The APTT is no longe r used for monitoring Unfractionated Heparin Therapy. For monitoring Heparin Therapy, use the Heparin Assay. [facility] Urinalysis complete W Reflex Culture panel (U)Ordered By: Elham Gomes on 09-13-2024 Appearance (U) Clear Clear [facility] Bilirubin (U) [Mass/Vol] Negative NEGATIVE [facility] Color (U) Light-Yellow Light-Yellow , Yellow, Dark-Yellow [facility] Glucose Auto test strip (U) [Mass/Vol] Normal Normal mg/dL [facility] Interpretation and review of laboratory results Abnormal [facility] Ketones (U) [Mass/Vol] Negative NEGAT SULEMA mg/dL [facility] Leukocyte esterase Auto test strip Ql (U) Negative NEGATIVE [place] [facility] Nitrite Auto test strip Ql (U) Negative NEGATIVE [facility] pH (U) 7.5 [pH] 5.0, 5.5, 6.0, 6.5, 7.0, 7.5, 8.0 [facility] Protein (U) [Mass/Vol] 10 (TRACE) NEGAT SULEMA, 10 (TRACE), 20 (TRACE) mg/dL [facility] RBC (U) [#/Vol] 0.06 (1+) Abnormal NEGATIVE [facility] Specific gravity (U) [Rel density] 1.014 1.005 - 1.035 [facility] Urobilinogen (U) [Mass/Vol] Normal Normal mg/dL [facility] Urinalysis complete W Reflex Culture panel (U)on 09-13-2024 Interpretation and review of laboratory results Abnormal [facility] Mucus Auto (Urine sed) [#/Area] FEW Reference range not established. /LPF [facility] RBC Auto (Urine sed) [#/Area] 6-10 Abnormal NONE, 1-2, 3-5 /HPF [facility] WBC Auto (Urine sed) [#/Area] 1-5 1-5, NONE /HPF [facility] Vital signson 09-13-2024 Heart rate 103 /min bpm [facility] Chest Single viewon 09-13 Radiology Study observation (narrative) [facility] Work Phone: BASIC METABOLIC PANELon -2 Anion gap [Moles/Vol] 12 mmol/L Normal 3-13 [facility] Comment on above: Performed By: #### L AB15, [id number], [id number] ####Automation Technician: BRIAN NUNEZ ([id number])[facility] [place] (SB[facility]AB)[address] Calcium [Mass/Vol] 9.4 mg/dL Normal 8.4-10.2 [facility] Comment on above: Performed By: #### L AB15, [id number], [id number] ####Automation Technician: BRIAN NUNEZ ([id number])[facility] (SBHLAB)[address] Chloride [Moles/Vol] 106 mmol/L Normal 98-107 [facility] Comment on above: Performed By: #### L AB15, [id number], [id number] ####Automation Technician: BRIAN NUNEZ ([id number])[facility] (SBHLAB)[address] CO2 [Moles/Vol] 22 mmol/L Normal 22-29 [facility] Comment on above: Performed By: #### Kamila BRANHAM15, [id number], [id number] ####Automation Technician: BRIAN NUNEZ ([id number])[facility] Creatinine [Mass/Vol] 1.48 mg/dL High 0.72-1.25 [facility] Comment on above: Performed By: #### L AB15, [id number], [id number] ####Automation Technician: BRIAN NUNEZ ([id number])[facility] (HLAB)[address] [place] [address] [place] GLOMERULAR FILTRATION RATE ML/MIN/1.73 SQ M.PREDICTED 56.9 mL/min/1.73m*2 Low >60.0 [facility] Comment on above: Result Comment: Calc ulation based on the Chronic Kidney Disease Epidemiology Collaboration (CKD-EPI) equation refit without adjustment for race Performed By: #### L AB15, [id number], [id number] ####Automation Technician: BRIAN NUNEZ ([id number])[facility] (SBHLAB)[address] Glucose [Mass/Vol] 113 mg/dL High 74-100 [facility] Comment on above: Performed By: #### L AB15, [id number], [id number] ####Automation Technician: BRIAN NUNEZ ([id number])[facility] (SBHLAB)[address] Potassium [Moles/Vol] 4.9 mmol/L Normal 3.5-5.1 [facility] Comment on above: Result Comment: [facility] potassium values may be up to 0.5 mmol/L lower than serum values. Performed By: #### L AB15, [id number], [id number] ####Automation Technician: BRIAN NUNEZ ([id number])[facility] (SBHLAB)[address] Sodium [Moles/Vol] 140 mmol/L Normal 136-145 [facility] Comment on above: Performed By: #### L AB15, [id number], [id number] ####Automation Technician: BRIAN NUNEZ ([id number])[facility] (SBHLAB)[address] [place] [address] Urea nitrogen [Mass/Vol] 18 mg/dL Normal 9-23 [facility] Comment on above: Performed By: #### L AB15, [id number], [id number] ####Automation Technician: BRIAN NUNEZ ([id number])[facility] (SBHLAB)[address] [place] [address] BLOOD CULTUREon 09-12-2024 Bacteria identified Cx Nom (Bld) BLOOD CULTURE Reference No growth at 5 days ORDER COMMENTS: Blood Collection Site: Left Arm [ S = SUSCEPTIBLE R = RESISTANT I = INTERMEDIATE S-DD = Susceptible-dose dependent NS = Non-susceptible NO = No Interpretation ] Normal [facility] Comment on above: Performed By: #### L [id number], [id number] #### Automation Technician: JAZLYN JIMENEZ ([id number]) [facility] ([facility]) [address] [place] [address] Bacteria identified Cx Nom (Bld) BLOOD CULTURE Reference No growth at 5 days ORDER COMMENTS: Blood Collection Site: Right Arm [ S = SUSCEPTIBLE R = RESISTANT I = INTERMEDIATE S-DD = Susceptible-dose dependent NS = Non-susceptible NO = No Interpretation ] Normal [facility] Comment on above: Performed By: #### L [id number], [id number] #### Automation Technician: JAZLYN JIMENEZ ([id number]) [facility] ([facility]) [address] [place] [address] Basic metabolic 1998 panelon 09-12-2024 Anion gap [Moles/Vol] 12 mmol/L 3 - 13 mmol/L [facility] Calcium [Mass/Vol] 9.4 mg/dL 8.4 - 10. 2 mg/dL [facility] Chloride [Moles/Vol] 106 mmol/L 98 - 10 7 mmol/L [facility] CO2 [Moles/Vol] 22 mmol/L 22 - 29 mmol/L [facility] Creatinine [Mass/Vol] 1.48 mg/dL High 0.72 - 1.25 mg/dL [facility] GFR/1.73 sq M.predicted (S/P/Bld) [Vol rate/Area] 56.9 mL/min Low - PINF [facility] Comment on above: Calculation based on the Chronic Kidney Disease Epidemiology Collaboration (CKD-EPI) equation refit without adjustment for race Glucose [Mass/Vol] 113 mg/dL High 74 - 100 mg/dL [facility] Interpretation and review of laboratory results Abnormal [facility] Potassium [Moles/Vol] 4.9 mmol/L 3.5 - 5.1 mmol/L [facility] Comment on above: Plasma potassium jeri ues may be up to 0.5 mmol/L lower than serum values. Sodium [Moles/Vol] 140 mmol/L 136 - 145 mmol/L [facility] Urea nitrogen [Mass/Vol] 18 mg/dL 9 - 23 mg/dL [facility] CBC W Auto Differential pane l (Bld)on 09-12-2024 Basophils (Bld) [#/Vol] 0 10*3/uL 0.0 - 0.2 10*3/uL [facility] Basophils/100 WBC (Bld) 0.2 % 0.0 - 2.0 % [facility] Eosinophils (Bld) [#/Vol] 0.4 10*3/uL 0.0 - 0.5 10*3/uL [facility] Eosinophils/100 WBC (Bld) 2 % 0.0 - 6.0 % [facility] Erythrocyte distribution width (RBC) [Ratio] 17 % High 11.5 - 15.0 % [facility] Hematocrit (Bld) [Volume fraction] 28.1 % Low 40.0 - 52.0 % [facility] Hemoglobin (Bld) [Mass/Vol] 8.9 g/dL Low 13.0 - 18.0 g/dL [facility] Immature granulocytes (Bld) [#/Vol] 0.1 10*3/uL High NINF - 0.1 10*3/uL [facility] Immature granulocytes/100 WBC (Bld) 0.7 % 0.0 - 2.0 % [facility] Interpretation and review of laboratory results Abnormal [facility] Lymphocytes (Bld) [#/Vol] 2.1 10*3/uL 1.0 - 4.3 10*3/uL [facility] Lymphocytes/100 WBC (Bld) 12 % Low 15.0 - 45.0 % [facility] MCH (RBC) [Entitic mass] 27.9 pg 26.0 - 34.0 pg [facility] MCHC (RBC) [Mass/Vol] 31.7 % 30.5 - 36.0 % [facility] MCV (RBC) [Entitic vol] 88.1 fL 77.0 - 99.0 fL [facility] Monocytes (Bld) [#/Vol] 1.5 10*3/uL High 0.0 - 0.9 10*3/uL [facility] Monocytes/100 WBC (Bld) 8.1 % 5.0 - 13.0 % [facility] Neutrophils (Bld) [#/Vol] 13.7 10*3/uL High 1.8 - 7.5 10*3/uL [facility] Neutrophils/100 WBC (Bld) 77 % 38.0 - 82.0 % [facility] Nucleated RBC/100 WBC (Bld) [Ratio] 0 % [facility] Platelet mean volume (Bld) [Entitic vol] 8.6 fL Low 9.0 - 12.7 fL [facility] Platelets (Bld) [#/Vol] 568 10*3/uL High 140 - 440 10*3/uL [facility] RBC (Bld) [#/Vol] 3.19 10*6/uL Low 4.40 - 5.9 0 10*6/uL [facility] WBC (Bld) [#/Vol] 17.8 10*3/uL High 3.6 - 10.7 10*3/uL [facility] CBC WITH AUTO DIFFERENTIALon 09-12-2024 Basophils (Bld) [#/Vol] 0.0 10*3/uL Normal 0.0-0.2 [facility] Comment on above: Performed By: #### L [id number] ####Automation Technician: BRIAN NUNEZ ([id number])[facility])[address] [place] [address] Basophils/100 WBC (Bld) 0.2 % Normal 0.0-2.0 [facility] Comment on above: Performed By: #### L [id number] ####Automation Technician: BRIAN NUNEZ ([id number])[facility] [place] [address] Eosinophils (Bld) [#/Vol] 0.4 10*3/uL Normal 0.0-0.5 [facility] Comment on above: Performed By: #### L [id number] ####Automation Technician: BRIAN NUNEZ ([id number])[facility] ([facility] [place] [address] Eosinophils/100 WBC (Bld) 2.0 % Normal 0.0-6.0 [facility] Comment on above: Performed By: #### L [id number] ####Automation Technician: BRIAN NUNEZ ([id number])[facility] (SBAB)[address] [place] [address] Erythrocyte distribution width (RBC) [Ratio] 17.0 % High 11.5-15.0 [facility] Comment on above: Performed By: #### L [id number] ####Automation Technician: BRIAN NUNEZ ([id number])[facility] (SBHLAB)[address] Hematocrit (Bld) [Volume fraction] 28.1 % Low 40.0-52.0 [facility] Comment on above: Performed By: #### L [id number] ####Automation Technician: BRIAN GAYFANNY ([id number])[facility] ([facility])[address] Hemoglobin (Bld) [Mass/Vol] 8.9 g/dL Low 13.0-18.0 [facility] Comment on above: Performed By: #### L [id number] ####Automation Technician: BRIAN NUNEZ ([id number])[facility] [place])[address] IMMATURE GRANS % 0.7 % Normal 0.0-2.0 [facility] Comment on above: Performed By: #### L [id number] ####Automation Technician: BRIAN GAYFANNY ([id number])[facility])[address] IMMATURE GRANS ABSOLUTE 0.1 10*3/uL High <0.1 [facility] Comment on above: Performed By: #### L [id number] ####Automation Technician: BRIAN NUNEZ ([id number])[facility])[address] Lymphocytes (Bld) [#/Vol] 2.1 10*3/uL Normal 1.0-4.3 [facility] Comment on above: Performed By: #### L [id number] ####Automation Technician: BRIAN NUNEZ ([id number])[facility])[address] Lymphocytes/100 WBC (Bld) 12.0 % Low 15.0-45.0 [facility] Comment on above: Performed By: #### L [id number] ####Automation Technician: BRIAN NUNEZ ([id number])[facility] (SBHLAB)[address] MCH (RBC) [Entitic mass] 27.9 pg Normal 26.0-34.0 [facility] Comment on above: Performed By: #### L [id number] ####Automation Technician: BRIAN NUNEZ ([id number])[facility] (SB[facility]AB)[address] MCHC 31.7 % Normal 30.5-36.0 [facility] Comment on above: Performed By: #### L [id number] ####Automation Technician: BRIAN NUNEZ ([id number])[facility] (SB[facility])[address] MCV (RBC) [Entitic vol] 88.1 fL Normal 77.0-99.0 [facility] Comment on above: Performed By: #### L [id number] ####Automation Technician: BRIAN NUNEZ ([id number])[facility] (SB[facility])[address] Monocytes (Bld) [#/Vol] 1.5 10*3/uL High 0.0-0.9 [facility] Comment on above: Performed By: #### L [id number] ####Automation Technician: BRIAN NUNEZ ([id number])[facility] [place] ([facility])[address] Monocytes/100 WBC (Bld) 8.1 % Normal 5.0-13.0 [facility] Comment on above: Performed By: #### L [id number] ####Automation Technician: BRIAN NUNEZ ([id number])[facility] [place] ([facility])[address] NEUTROPHILS ABSOLUTE 13.7 10*3/uL High 1.8-7.5 [facility] Comment on above: Performed By: #### L [id number] ####Automation Technician: BRIAN NUNEZ ([id number])[facility] [place] (SBHLAB)[address] Neutrophils/100 WBC (Bld) 77.0 % Normal 38.0-82.0 [facility] Comment on above: Performed By: #### L [id number] ####Automation Technician: BRIAN NUNEZ ([id number])[facility] [place] (SB[facility]AB)[address] NRBC 0.0 /100 WBCs Normal 0.0-2.0 [facility] Comment on above: Performed By: #### L [id number] ####Automation Technician: BRIAN NUNEZ ([id number])[facility] [place] ([facility])[address] Platelet mean volume (Bld) [Entitic vol] 8.6 fL Low 9.0-12.7 [facility] Comment on above: Performed By: #### L [id number] ####Automation Technician: BRIAN NUNEZ ([id number])[facility] [place] (SB[facility])[address] [place] [address] [place] Platelets (Bld) [#/Vol] 568 10*3/uL High 140-440 [facility] Comment on above: Performed By: #### L [id number] ####Automation Technician: BRIAN NUNEZ ([id number])[facility] [place] ([facility])[address] [place] [address] [place] RBC (Bld) [#/Vol] 3.19 10*6/uL Low 4.40-5.90 [facility] Comment on above: Performed By: #### L [id number] ####Automation Technician: BRIAN NUNEZ ([id number])[facility] [place] ([facility])[address] [place] [address] [place] WBC (Bld) [#/Vol] 17.8 10*3/uL High 3.6-10.7 [facility] Comment on above: Performed By: #### L [id number] ####Automation Technician: BRIAN [id number])[facility] (SB[facility]AB)[address] [place] [address] CT ABDOMEN PELVIS W CONTRAST on 09-12-2024 CT ABDOMEN PELVIS W CONTRAST Patient Name: KEVAN LA : 1975 [facility]#: [id number] Exam Date/Time: 09/12/2024 21:13 Procedure: CT ABDOMEN [...] hydronephrosis. No focal lesion. Free fluid: None. Retroperitoneal/mesenteri c lymphadenopathy: None. Aorta: Atherosclerotic. Nonaneurysmal. Bowel: The [...] abscess or signs of necrotizing infection. Normal [facility] CT Abdomen and Pelvis W [...] DO Electronically Signed Date/Time: 09/12/2024 9:48 PM [facility] EMERGENCY [facility]PARTMENT RADIOLOGY SYSTEM Patient Name: KEVAN [...] hydronephrosis. No focal lesion. Free fluid: None. Retroperitoneal/mesenteri c lymphadenopathy: None. Aorta: Atherosclerotic. Nonaneurysmal. Bowel: The [...] No cortical irregularity of the left femur. [facility] RADIOLOGY SYSTEM Raisa Eaton DO - 09/12/2024 [facility] 1975 [id number] Exam Date/Time: 09/12/2024 21:13 Procedure: CT ABDOMEN [...] hydronephrosis. No focal lesion. Free fluid: None. Retroperitoneal/mesenteri c lymphadenopathy: None. Aorta: Atherosclerotic. Nonaneurysmal. Bowel: The [...] Electronically Signed Date/Time: 09/12/2024 9:48 PM EST [facility] Radiology Study observation (narrative) [facility] CT Abdomen and Pelvis W cont rast IVOrdered By: Raisa Eaton on 09-12-2024 [facility] [email or web address] Work Phone: CULTURE ANAEROBICon 09-12-20 24 CULTURE ANAEROBIC ANAEROBIC CULTURE (A ) Reference BACTEROIDES FRAGILIS GROUP Moderate Bacteroides fragilis group (A) [ S = SUSCEPTIBLE R = RESISTANT I = INTERMEDIATE S-DD = Susceptible-dose dependent NS = Non-susceptible NO = No Interpretation ] Normal [facility] Comment on above: Performed By: #### L [id number], [id number] #### Automation Technician: JAZLYN JIMENEZ ([id number]) [facility] ([address] CULTURE, AEROBIC BACTERIA WI TH GRAM [...] Non-susceptible NO = No Interpretation ] Normal [facility] Comment on above: Performed By: #### L [id number], [id number] #### Automation Technician: JAZLYN JIMENEZ ([id number]) [facility] [address] [place] [address] ED Provider Noteon ED Provider Note [facility] ED EMERGENCY DEPARTMENT ENCOUNTER Pt Name: Kevan [...] Single SCREENINGS PHYSICAL EXAM ED Triage Vitals [09/12/24 1948] Temp Heart Rate Resp BP 38 [...] Procedure Abnormality Status --------- ------ Culture, Aerobic Bacteri...[[id number]] In process Anaerobic culture[[id number]] In process Please view results for these [...] mg IntraVENou (more content not included)... Normal [facility] HIGH SENSITIVITY TROPONIN, S ERIAL BASELINEon 09-12-2024 TROPONIN HIGH SENSITIVITY BASELINE 4 ng/L Normal <=35 [facility] Comment on above: Performed By: #### L AB15, [id number], [id number] ####Automation Technician: BRIAN NUNEZ ([id number])[facility] ([facility])[address] [place] [address] LACTIC ACID WITH REFLEXon Lactate [Moles/Vol] 2.0 mmol/L Normal 0.5-2.2 [facility] Comment on above: Performed By: #### L [id number] ####Automation Technician: BRIAN NUNEZ ([id number])[facility])[address] [place] [address] Laboratory - Chemistry and C hemistry - challengeon 09-12-2024 Lactate [Moles/Vol] 2 mmol/L 0.5 - 2. 2 mmol/L [facility] NT PRO BNPon 12-26-2024 Natriuretic peptide B (Bld) [Mass/Vol] 589 pg/mL High <125 [facility] Comment on above: Performed By: #### L AB15, [id number], [id number] ####Automation Technician: BRIAN NUNEZ ([id number])[facility] (SBHL[facility])[address] [place] [address] Natriuretic peptide B [Mass/ Vol]on 09-12-2024 Interpretation and review of laboratory results Abnormal [facility] Natriuretic peptide B (Bld) [Mass/Vol] 589 pg/mL High NINF - 125 pg/mL [facility] No Panel Informationon 09-12 Interpretation and review of laboratory results Normal [facility] Troponin HS, Serial Baseline 4 ng/L NINF - 35 ng/L [facility] Interpretation and review of laboratory results Normal [facility] Progress Noteon 09-12-2024 Progress Note Culture reviewed. Awaiting sensitivity results. Patient was seen at [facility] given IV antibiotics broad-spectrum coverage and transferred to [facility] for further management Normal [facility] XR Chest Single viewon 09-12 1. No acute findings. Report Dictated on Electronically Signed By: Elias Hutson MD Electronically Signed Date/Time: 09/12/2024 8:28 PM EST [facility] 1975 [id number] Exam Date/Time: 09/12/2024 20:17 Procedure: XR CHEST [...] or apparent pneumothorax. Bony thorax grossly unremarkable. [facility] Elias Hutson MD - 09/12/2024 [facility]: [facility]AN LA [facility] 1975 [id number] Exam Date/Time: 09/12/2024 20:17 Procedure: XR CHEST [...] Electronically Signed Date/Time: 09/12/2024 8:28 PM EST [facility] Study observation (narrative) [facility] XR Chest Single viewOrdered By: Elias Hutson on 09-12-2024 [facility] Work Phone: ECG 12-LEADon 02-29-2024 ECG 12-LEAD Ventricular Rate 60 Atrial Rate 60 P-R Interval 146 QRS Duration 92 Q-T Interval 410 QTC Calculation(Bazett) 410 P [place] 55 R [place] 41 T [place] 55 QRS Count 10 Q Onset 212 P Onset 139 P Offset 195 T Offset 417 QTC Frederic[place] 410 Diagnosis Normal sinus rhythm Normal ECG When compared with ECG of 23-NOV-2023 11:14, No significant change was found Confirmed by Eric Mccall ([id number]) on 03/01/2024 4:34:58 PM Normal [facility] ECG 12 lead (Ancillary Perfo rmed)Ordered By: Beto Casas on 11-24-2023 Atrial Rate 58 BPM [facility] Work Phone: P [place] 59 degrees [facility] Work Phone: P Offset 198 ms [facility] Work Phone: P Onset 141 ms [facility] Work Phone: [place] Interval 150 ms [facility] Work Phone: Q Onset 216 ms [facility] Work Phone: QRS Count 10 beats [facility] Work Phone: [phone] QRS Duration 98 ms [facility] Work Phone: [phone] QT Interval 402 ms [facility] Work Phone: QTC Calculation(Bazett) 394 ms [facility] Work Phone: [phone] QTC [place] 397 ms [facility] Work Phone: [phone] R [place] 54 degrees [facility] Work Phone: [phone] T [place] 65 degrees [facility] Work Phone: [phone] T Offset 417 ms [facility] Work Phone: [phone] Ventricular Rate 58 BPM [facility] Work Phone: [phone] [facility] Work Phone: ECG 12 lead (Ancillary Perfo rmed)on 11-24-2023 Sinus bradycardia Otherwise normal ECG No previous ECGs available Confirmed by Beto Casas ([id number]) on 11/24/2023 1:09:15 PM MUSE Beto Casas MD - 11/24/2023 Sinus bradycardia Otherwise normal ECG No previous ECGs available Confirmed by Beto Casas ([id number]) on 11/24/2023 1:09:15 PM [facility] Work Phone: QUANTIFERON - PLUS RHODES TUBE on 04-10-2023 Gamma interferon background IA Qn (Bld) 0.02 IU/mL [facility] QUANTIFERON - PLUS GREEN TUB Yunior 04-10-2023 TB1 Antigen Result 0.05 IU/mL [facility] QUANTIFERON - PLUS PURPLE TU BEon 04-10-2023 M. tuberculosis stim IFN-g by CD4+ CD8+ T-cells corrected for background Qn (Bld) 0.01 IU/mL [facility] M. tuberculosis stim IFN-g by CD4+ T-cells corrected for background Qn (Bld) 0.03 [IU]/mL IU/mL [facility] M. tuberculosis tuberculin stim IFN-g Ql (Bld) Negative Negative [facility] Mitogen Result IU/mL [facility]ogen stimulated gamma interferon corrected for background Qn (Bld) IU/mL [facility] Interferon gamma rel ease is measured for specimens from each of [...] NTM (M. kansasii, M. szulgai,or M. marinum). [facility] QUANTIFERON - PLUS YELLOW TU BEon 04-10-2023 TB2 Antigen Value 0.03 IU/mL [facility] Bilirubin.indirect [Mass/Vol ]on 04-08-2023 Bilirubin.conjugated [Mass/Vol] 0.0 mg/dL 0.0 - 0.3 mg/dL [facility] Interpretation and review of laboratory results Normal [facility] CBC W Auto Differential pane l (Bld)Ordered By: Smitha Mcknight on 04-08-2023 Basophils (Bld) [#/Vol] 0.1 10*3/uL 0.0 - 0.2 10*3/uL [facility] Basophils/100 WBC (Bld) 0.7 % 0.0 - 2.0 % [facility] Eosinophils (Bld) [#/Vol] 0.3 10*3/uL 0.0 - 0.5 10*3/uL [facility] Eosinophils/100 WBC (Bld) 2.6 % 1.0 - 6.0 % [facility] Erythrocyte distribution width (RBC) [Ratio] 15.0 % High 11.5 - 14.5 % [facility] [email or web address] Hematocrit (Bld) [Volume fraction] 38.9 % Low 40.0 - 52.0 % [facility] Hemoglobin (Bld) [Mass/Vol] 12.8 g/dL Low 13.0 - 18.0 g/dL [facility] Immature granulocytes (Bld) [#/Vol] 0.0 10*3/uL NINF - 0.0 10*3/uL [facility] [email or web address] Immature granulocytes/100 WBC (Bld) 0.3 % High NINF - 0.0 % [facility] Interpretation and review of laboratory results Abnormal [facility] Lymphocytes (Bld) [#/Vol] 3.0 10*3/uL 1.0 - 4.3 10*3/uL [facility] Lymphocytes/100 WBC (Bld) 23.6 % 20.0 - 40.0 % [facility] MCH (RBC) [Entitic mass] 28.7 pg 26.0 - 34.0 pg [facility] MCHC (RBC) [Mass/Vol] 32.9 % 32.0 - 36.0 % [facility] MCV (RBC) [Entitic vol] 87.2 fL 80.0 - 98.0 fL [facility] Monocytes (Bld) [#/Vol] 1.2 10*3/uL High 0.0 - 0.8 10*3/uL [facility] Monocytes/100 WBC (Bld) 9.1 % 2.0 - 10.0 % [facility] Neutrophils (Bld) [#/Vol] 8.1 10*3/uL High 1.8 - 7.0 10*3/uL [facility] Neutrophils/100 WBC (Bld) 63.7 % 40.0 - 80.0 % [facility] Platelet mean volume (Bld) [Entitic vol] 8.7 fL 7.4 - 12.4 fL [facility] Comment on above: MPV is a calculated measurement using platelet volume ratio Platelets (Bld) [#/Vol] 415 10*3/uL 140 - 440 10*3/uL [facility] RBC (Bld) [#/Vol] 4.46 10*6/uL 4.40 - 5.9 0 10*6/uL [facility] WBC (Bld) [#/Vol] 12.7 10*3/uL High 3.6 - 10.7 10*3/uL [facility] Comprehensive metabolic 1998 panelon 04-08-2023 Albumin [Mass/Vol] 3.9 g/dL 3.5 - 5.0 g/dL [facility] ALP [Catalytic activity/Vol] 95 U/L 38 - 126 U/L [facility] ALT [Catalytic activity/Vol] 16 U/L 0 - 49 U/L [facility] Anion gap [Moles/Vol] 5 mmol/L 3 - 13 mmol/L [facility] AST [Catalytic activity/Vol] 24 U/L 15 - 46 U/L [facility] Bilirubin [Mass/Vol] 0.3 mg/dL 0.2 - 1 .3 mg/dL [facility] Calcium [Mass/Vol] 8.8 mg/dL 8.4 - 10. 4 mg/dL [facility] Chloride [Moles/Vol] 108 mmol/L High 98 - 10 7 mmol/L [facility] CO2 [Moles/Vol] 28 mmol/L 22 - 30 mmol/L [facility] Creatinine [Mass/Vol] 1.20 mg/dL 0.66 - 1.25 mg/dL [facility] GFR/1.73 sq M.predicted MDRD (S/P/Bld) [Vol rate/Area] 74.1 mL/min/{1.73_m2} - PINF [facility] Comment on above: Calculation based on the Chronic Kidney Disease Epidemiology Collaboration (CKD-EPI) equation refit without adjustment for race Glucose [Mass/Vol] 110 mg/dL High 70 - 100 mg/dL [facility] Interpretation and review of laboratory results Abnormal [facility] Potassium [Moles/Vol] 4.3 mmol/L 3.5 - 5.1 mmol/L [facility] Protein [Mass/Vol] 8.3 g/dL High 6.3 - 8.2 g/dL [facility] Sodium [Moles/Vol] 140 mmol/L 135 - 145 mmol/L [facility] Urea nitrogen [Mass/Vol] 14 mg/dL 9 - 20 mg/dL [facility] No Panel Informationon 04-08 [facility] Vital Signs Date Time Vital Sign Value Performing Clinician Facility 05-12-2025 13:23-0400 Diastolic blood pressure 72 mm[Hg] Kassi Dumont PA-C Work Phone: [facility] 05-12-2025 13:23-0400 Heart rate 62 /min Kassi Dumont PA-C Work Phone: [facility] 05-12-2025 13:23-0400 Respiratory rate 16 /min Kassi Dumont PA-C Work Phone: [facility] 05-12-2025 13:23-0400 SaO2% (BldA) [Mass fraction] 97 % Kassi Dumont PA-C Work Phone: [facility] 05-12-2025 13:23-0400 Systolic blood pressure 124 mm[Hg] Kassi Dumont PA-C Work Phone: [facility] 03-24-2025 11:14-0400 Diastolic blood pressure 60 mm[Hg] Kris Dyllan PA-C Work Phone: [facility] 03-24-2025 11:14-0400 Heart rate 68 /min Kris Dyllan PA-C Work Phone: [facility] 03-24-2025 11:14-0400 Systolic blood pressure 101 mm[Hg] Kris Dyllan PA-C Work Phone: [facility] 03-10-2025 14:54-0400 Body temperature 96.8 [degF] Astrid Hawley MANAGER LIFE INSURANCE-MI[employer]OMATIC HONE OPERATOR Work Phone: [facility] 03-10-2025 14:54-0400 Diastolic blood pressure 51 mm[Hg] Astrid Hawley MANAGER [employer] INS[employer]-MICROMATIC HONE OPERATOR Work Phone: [facility] 03-10-2025 14:54-0400 Heart rate 47 /min Astrid Hawley MANAGER [employer] INS[employer]-MICROMATIC HONE OPERATOR Work Phone: [facility] 03-10-2025 14:54-0400 Respiratory rate 14 /min Astrid Hawley MANAGER [employer] INS[employer]ANCE-MICROMATIC HONE OPERATOR Work Phone: [facility] 03-10-2025 14:54-0400 SaO2% (BldA) [Mass fraction] 100 % Astrid Hawley MANAGER [employer]-MICROMATIC HONE OPERATOR Work Phone: [facility] 03-10-2025 14:54-0400 Systolic blood pressure 93 mm[Hg] Astrid Hawley MANAGER [employer]OMATIC [employer]ONE OPERATOR Work Phone: [facility] 03-03-2025 15:38-0400 Diastolic blood pressure 55 mm[Hg] Dean Jalloh MD Work Phone: [facility] 03-03-2025 15:38-0400 Heart rate 55 /min Dean Jalloh MD Work Phone: [facility] 03-03-2025 15:38-0400 Respiratory rate 16 /min Dean Jalloh MD Work Phone: [facility] 03-03-2025 15:38-0400 SaO2% (BldA) [Mass fraction] 98 % Dean Jalloh MD Work Phone: [facility] 03-03-2025 15:38-0400 Systolic blood pressure 98 mm[Hg] Dean Jalloh MD Work Phone: [facility] 12-24-2024 09:31-0400 Body temperature 98.01 [degF] Mejgon Martina DO Work Phone: [email or web address] 12-24-2024 09:31-0400 Diastolic blood pressure 45 mm[Hg] Mejgon Martina DO Work Phone: [email or web address] 12-24-2024 09:31-0400 Heart rate 83 /min Mejgon Martina DO Work Phone: [email or web address] 12-24-2024 09:31-0400 Respiratory rate 15 /min Mejgon Martina DO Work Phone: [email or web address] 12-24-2024 09:31-0400 SaO2% (BldA) [Mass fraction] 97 % Mejgon Martina DO Work Phone: [facility] [email or web address] 12-24-2024 09:31-0400 Systolic blood pressure 95 mm[Hg] Levi Mack DO Work Phone: [facility] [email or web address] 12-23-2024 19:23-0400 Body height 200.7 cm Levi Tobiasya DO Work Phone: [facility] [email or web address] 12-23-2024 19:23-0400 Body mass index (BMI) [Ratio] 22.34 kg/m2 Levi Mack DO Work Phone: [facility] [email or web address] 12-23-2024 19:23-0400 Body weight 90 kg Levi Mack DO Work Phone: [facility] [email or web address] 12-20-2024 10:55-0400 Body height 196.7 cm Sreedhar Jiang MD Work Phone: [facility] 12-20-2024 10:55-0400 Body mass index (BMI) [Ratio] 23.31 kg/m2 Sreedhar Jiang MD Work Phone: [facility] 12-20-2024 10:55-0400 Body temperature 97.9 [degF] Sreedhar Jiang MD Work Phone: [facility] 12-20-2024 10:55-0400 Body weight 90.2 kg Sreedhar Jiang MD Work Phone: [facility] 12-20-2024 10:55-0400 Diastolic blood pressure 57 mm[Hg] Sreedhar Jiang MD Work Phone: [facility] 12-20-2024 10:55-0400 Heart rate 74 /min Sreedhar Jiang MD Work Phone: [facility] 12-20-2024 10:55-0400 Respiratory rate 16 /min Sreedhar Jiang MD Work Phone: [facility] 12-20-2024 10:55-0400 SaO2% (BldA) [Mass fraction] 96 % Sreedhar Jiang MD Work Phone: [facility] 12-20-2024 10:55-0400 Systolic blood pressure 99 mm[Hg] Sreedhar Jiang MD Work Phone: [facility] 12-19-2024 07:29-0400 Body temperature 97 [degF] Mine Nunez MD Work Phone: [facility] 12-19-2024 07:29-0400 Diastolic blood pressure 62 mm[Hg] Mine Nunez MD Work Phone: [facility] 12-19-2024 07:29-0400 Heart rate 83 /min Mine Nunez MD Work Phone: [facility] 12-19-2024 07:29-0400 Respiratory rate 16 /min Mine Nunez MD Work Phone: [facility] 12-19-2024 07:29-0400 SaO2% (BldA) [Mass fraction] 96 % Mine Nunez MD Work Phone: [facility] 12-19-2024 07:29-0400 Systolic blood pressure 102 mm[Hg] Mine Nunez MD Work Phone: [facility] 12-07-2024 16:58-0400 Body height 200.6 cm Mine Nunez MD Work Phone: [facility] 12-07-2024 16:58-0400 Body mass index (BMI) [Ratio] 22.22 kg/m2 Mine Nunez MD Work Phone: [facility] 12-07-2024 16:58-0400 Body weight 89.4 kg Mine Nunez MD Work Phone: [facility] 12-07-2024 13:22-0400 Body temperature 98.71 [degF] Fer Hollins MD Work Phone: [facility] [email or web address] 12-07-2024 13:22-0400 Diastolic blood pressure 57 mm[Hg] Fer Hollins MD Work Phone: [facility] 12-07-2024 13:22-0400 Heart rate 60 /min Fer Hollins MD Work Phone: [facility] [email or web address] 12-07-2024 13:22-0400 Respiratory rate 16 /min Fer Hollins MD Work Phone: [facility] 12-07-2024 13:22-0400 SaO2% (BldA) [Mass fraction] 100 % Fer Hollins MD Work Phone: [facility] [email or web address] 12-07-2024 13:22-0400 Systolic blood pressure 89 mm[Hg] Fer Hollins MD Work Phone: [facility] [email or web address] 12-06-2024 11:09-0400 Body height 200.7 cm Fer Hollins MD Work Phone: [facility] 12-06-2024 11:09-0400 Body mass index (BMI) [Ratio] 22.19 kg/m2 Fer Hollins MD Work Phone: [facility] [email or web address] 12-06-2024 11:09-0400 Body weight 89.36 kg Fer Hollins MD Work Phone: [facility] 11-27-2024 13:43-0400 Body temperature 97.7 [degF] Baldomero Powell MD Work Phone: [facility] 11-27-2024 13:43-0400 Diastolic blood pressure 61 mm[Hg] Baldomero Powell MD Work Phone: [facility] 11-27-2024 13:43-0400 Heart rate 74 /min Baldomero Powell MD Work Phone: [facility] 11-27-2024 13:43-0400 SaO2% (BldA) [Mass fraction] 98 % Baldomero Powell MD Work Phone: [facility] 11-27-2024 13:43-0400 Systolic blood pressure 105 mm[Hg] Baldomero Powell MD Work Phone: [facility] 11-27-2024 05:19-0400 Respiratory rate 17 /min Baldomero Powell MD Work Phone: [facility] 11-13-2024 17:26-0500 Body temperature 37 Baldomero Powell MD Work Phone: [facility] 11-11-2024 09:42-0500 Body mass index (BMI) [Ratio] 25.93 kg/m2 Baldomero Powell MD Work Phone: [facility] 11-11-2024 09:42-0500 Body weight 104.33 kg Baldomero Powell MD Work Phone: [facility] 11-10-2024 04:05-0500 Body height 200.6 cm Baldomero Powell MD Work Phone: [facility] 11-09-2024 17:02-0500 Body temperature 98.01 [degF] Fer Kennedy MD Work Phone: [facility] [email or web address] 11-09-2024 17:02-0500 Diastolic blood pressure 55 mm[Hg] Fer Kennedy MD Work Phone: [facility] [email or web address] 11-09-2024 17:02-0500 Heart rate 63 /min Fer Kennedy MD Work Phone: [facility] [email or web address] 11-09-2024 17:02-0500 Respiratory rate 16 /min Fer Kennedy MD Work Phone: [facility] [email or web address] 11-09-2024 17:02-0500 SaO2% (BldA) [Mass fraction] 97 % Fer Kennedy MD Work Phone: [email or web address] 11-09-2024 17:02-0500 Systolic blood pressure 99 mm[Hg] Fer Kennedy MD Work Phone: [facility] [email or web address] 11-09-2024 08:12-0500 Body height 200.7 cm Fer Kennedy MD Work Phone: [email or web address] 11-09-2024 08:12-0500 Body mass index (BMI) [Ratio] 21.52 kg/m2 Fer Kennedy MD Work Phone: [facility] [email or web address] 11-09-2024 08:12-0500 Body weight 86.64 kg Fer Kennedy MD Work Phone: [facility] [email or web address] Comment on above: pt states last time he was weighed at [facility] this was his current weight 10-23-2024 03:44-0500 Body temperature 98.2 [degF] Kishore Gutierrez MD Work Phone: [facility] 10-23-2024 03:44-0500 Diastolic blood pressure 54 mm[Hg] Kishore Gutierrez MD Work Phone: [facility] 10-23-2024 03:44-0500 Heart rate 74 /min Kishore Gutierrez MD Work Phone: [facility] 10-23-2024 03:44-0500 Respiratory rate 17 /min Kishore Gutierrez MD Work Phone: [facility] 10-23-2024 03:44-0500 SaO2% (BldA) [Mass fraction] 98 % Kishore Gutierrez MD Work Phone: [facility] 10-23-2024 03:44-0500 Systolic blood pressure 103 mm[Hg] Kishore Gutierrez MD Work Phone: [facility] 10-13-2024 12:12-0500 Body temperature 37 Kishore Gutierrez MD Work Phone: [facility] 10-13-2024 12:08-0500 Body temperature 37 Kishore Gutierrez MD Work Phone: [facility] 10-13-2024 12:08-0500 SaO2% (BldA) [Mass fraction] 95 % Kishore Gutierrez MD Work Phone: [facility] 10-11-2024 10:15-0500 Body height 200.7 cm Kishore Gutierrez MD Work Phone: [facility] 10-11-2024 10:15-0500 Body mass index (BMI) [Ratio] 25.01 kg/m2 Kishore Gutierrez MD Work Phone: [facility] 10-11-2024 10:15-0500 Body weight 100.7 kg Kishore Gutierrez MD Work Phone: [facility] 10-10-2024 16:24-0500 Body temperature 37 Kishore Gutierrez MD Work Phone: [facility] 09-17-2024 08:06-0500 Body temperature 97 [degF] Ankit Nino MD Work Phone: [facility] 09-17-2024 08:06-0500 Diastolic blood pressure 56 mm[Hg] Ankit Nino MD Work Phone: [facility] 09-17-2024 08:06-0500 Heart rate 66 /min Ankit Nino MD Work Phone: [facility] 09-17-2024 08:06-0500 Respiratory rate 17 /min Ankit Nino MD Work Phone: [facility] 09-17-2024 08:06-0500 SaO2% (BldA) [Mass fraction] 96 % Ankit Nino MD Work Phone: [facility] 09-17-2024 08:06-0500 Systolic blood pressure 103 mm[Hg] Ankit Nino MD Work Phone: [facility] 09-13-2024 23:47-0500 Body temperature 37 Ankit Nino MD Work Phone: [facility] 09-13-2024 21:41-0500 Body height 200.7 cm Ankit Nino MD Work Phone: [facility] 09-13-2024 21:41-0500 Body mass index (BMI) [Ratio] 25.02 kg/m2 Ankit Nino MD Work Phone: [facility] 09-13-2024 21:41-0500 Body weight 100.8 kg Ankit Nino MD Work Phone: [facility] 09-13-2024 19:32-0500 Body temperature 100.6 [degF] Xiomara Kauffman MD Work Phone: [email or web address] 09-13-2024 19:32-0500 Diastolic blood pressure 63 mm[Hg] Xiomara Kauffman MD Work Phone: [email or web address] 09-13-2024 19:32-0500 Heart rate 90 /min Xiomara Kauffman MD Work Phone: [email or web address] 09-13-2024 19:32-0500 Respiratory rate 16 /min Xiomara Kauffman MD Work Phone: [email or web address] 09-13-2024 19:32-0500 SaO2% (BldA) [Mass fraction] 94 % Xiomara Kauffman MD Work Phone: [facility] 09-13-2024 19:32-0500 Systolic blood pressure 95 mm[Hg] Xiomara Kauffman MD Work Phone: [email or web address] 09-13-2024 11:29-0500 Body height 200.7 cm Xiomara Kauffman MD Work Phone: [email or web address] 09-13-2024 11:29-0500 Body mass index (BMI) [Ratio] 25.91 kg/m2 Xiomara Kauffman MD Work Phone: [email or web address] 09-13-2024 11:29-0500 Body weight 104.33 kg Xiomara Kauffman MD Work Phone: [email or web address] Encounters Encounter Date Encounter Type Care Provider Facility Start: 05-13-2025 End: 05-13-2025 ambulatory ASTRID HAWLEY [facility] Start: 05-12-2025 End: 05-12-2025 Office outpatient visit 10 minutes Kassi Dumont PA-C Work Phone: [facility] [place] Comment on above: Wound of thigh (Prim ayde Dx) Start: 05-12-2025 End: 05-12-2025 ambulatory NO ASSIGNED PCP GENERIC PROVIDER [facility] Start: 04-30-2025 End: 04-30-2025 ambulatory NO ASSIGNED PCP GENERIC PROVIDER [facility] Start: 04-28-2025 ambulatory Julio SAMANIEGO Facil ity:[facility] Start: 04-24-2025 ambulatory Julio SAMANIEGO Facil ity:[facility] Start: 04-07-2025 End: 04-07-2025 Office outpatient visit 25 minutes Astrid ROBLES Work Phone: [facility] Comment on above: Constipation due to pain medication therapy (Primary Dx); Other insomnia; Cancer associated pain Start: 04-07-2025 End: 04-07-2025 ambulatory ASTRID HAWLEY [facility] Start: 03-24-2025 End: 03-24-2025 ambulatory NO ASSIGNED PCP GENERIC PROVIDER [facility] Start: 03-24-2025 End: 03-24-2025 Office outpatient visit 15 minutes Kris HERNANDEZC Work Phone: [facility] [place] Comment on above: Wound of gluteal gregg ft, left, subsequent encounter (Primary Dx) Start: 03-18-2025 End: 03-18-2025 ambulatory Julio SAMANIEGO [facility] [address] Start: 03-18-2025 End: 03-18-2025 Departed Referred Julio Whitaker [place] - [address] Start: 03-18-2025 End: 03-18-2025 ambulatory Julio SAMANIEGO Facility:[facility] Start: 03-12-2025 ambulatory Julio SAMANIEGO Facil ity:[facility] Start: 03-12-2025 Registered Referred Julio Malik - [address] Start: 03-11-2025 End: 03-11-2025 Postop follow up visit related to original px Kong Mina MD Work Phone: [facility] Comment on above: Squamous cell carcin pasha of left thigh (Primary Dx) Start: 03-11-2025 End: 03-11-2025 ambulatory KONG MINA [facility] Start: 03-10-2025 End: 03-10-2025 ambulatory ASTRID HAWLEY [facility] Start: 03-10-2025 End: 03-10-2025 Office outpatient visit 40 minutes Astrid Hawley MANAGER [employer]OMATIC HONE OPERATOR Work Phone: [facility] Comment on above: Encounter for monito ring opioid maintenance therapy (Primary Dx); Cancer associated pain; Squamous cell carcinoma of left thigh; Abscess; Other insomnia; Constipation due to pain medication therapy Start: 03-03-2025 End: 03-03-2025 ambulatory DEAN JALLOH [facility] Start: 03-03-2025 End: 03-03-2025 Postop follow up visit related to original px Dean Jalloh MD Work Phone: [facility] Comment on above: Wound of thigh (Prim ayde Dx); Post-operative state; Encounter for change of dressing Start: 02-20-2025 ambulatory Julio SAMANIEGO Facil ity:[facility] Start: 02-20-2025 Registered Referred Julio Nolasco -[facility] [place] [facility] [address] Start: 02-18-2025 ambulatory Julio SAMANIEGO Facil ity:[facility] Start: 02-18-2025 Registered Referred Julio Constance [facility] [address] Start: 01-13-2025 End: 01-13-2025 ambulatory NO ASSIGNED PCP GENERIC PROVIDER [facility] Start: 01-13-2025 End: 01-13-2025 Subsequent hospital visit by physician Elizabeth [facility] Comment on above: Encounter for antine oplastic radiation therapy; 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, including hip Start: 01-10-2025 End: 01-10-2025 ambulatory NO ASSIGNED PCP GENERIC PROVIDER [facility] Start: 01-10-2025 End: 01-10-2025 Subsequent hospital visit by physician Elizabeth [facility] Comment on above: Arrived Encounter for antine oplastic radiation therapy; 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, including hip Start: 01-09-2025 End: 01-09-2025 ambulatory NO ASSIGNED PCP GENERIC PROVIDER [facility] Start: 01-09-2025 End: 01-09-2025 Subsequent hospital visit by physician Blaise Quijano [facility] Comment on above: Arrived Encounter for antine oplastic radiation therapy; 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, including hip Start: 01-08-2025 End: 01-08-2025 ambulatory NO ASSIGNED PCP GENERIC PROVIDER [facility] Start: 01-08-2025 End: 01-08-2025 Subsequent hospital visit by physician Elizabeth [facility] Comment on above: Arrived Encounter for antine oplastic radiation therapy; 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, including hip Start: 01-08-2025 End: 01-08-2025 ambulatory NO ASSIGNED PCP GENERIC PROVIDER [facility] Start: 01-08-2025 End: 01-08-2025 Subsequent hospital visit by physician Leslee Krueger Onc Tx Plan [facility] Comment on above: Arrived Start: 01-07-2025 End: 01-07-2025 ambulatory NO ASSIGNED PCP GENERIC PROVIDER [facility] Start: 01-07-2025 End: 01-07-2025 Subsequent hospital visit by physician Elizabeth [facility] Comment on above: Arrived Start: 01-06-2025 ambulatory NO ASSIGNED PC P GENERIC PROVIDER [facility] Start: 01-03-2025 End: 01-03-2025 ambulatory NO ASSIGNED PCP GENERIC PROVIDER [facility] Start: 01-03-2025 End: 01-03-2025 Subsequent hospital visit by physician Leslee Krueger Onc Tx Plan [facility] Comment on above: Arrived Start: 01-02-2025 End: 01-02-2025 Subsequent hospital visit by physician Leslee Wright [facility] Comment on above: 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, including hip (Primary Dx) Start: 01-02-2025 End: 01-02-2025 ambulatory NO ASSIGNED PCP GENERIC PROVIDER [facility] Start: 01-02-2025 End: 01-02-2025 ambulatory PHIL QUIJANO [facility] Start: 01-02-2025 End: 01-02-2025 Subsequent hospital visit by physician Rad External Film [facility] [employer] [facility] Comment on above: 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, including hip Start: 12-24-2024 End: 02-17-2025 Evaluation and management of inpatient KONG MINA [facility] Start: 12-23-2024 Evaluation and manag ement of inpatient CURTIS MCFARLANE [facility] Start: 12-22-2024 End: 12-24-2024 Evaluation and management of inpatient Levi Mack DO Work Phone: [facility] Comment on above: Sepsis, due to unspe cified organism, unspecified whether acute organ dysfunction present (HCC) (Primary Dx); Abscess of left hip Start: 12-20-2024 End: 12-20-2024 ambulatory [facility] Start: 12-20-2024 End: 12-20-2024 ambulatory [facility] Start: 12-20-2024 End: 12-20-2024 Office outpatient visit 40 minutes Sreedhar Jiang MD Work Phone: [facility] Comment on above: Squamous cell carcin pasha of left hip (Primary Dx); Hypercalcemia of malignancy Start: 12-20-2024 End: 12-20-2024 ambulatory [facility] Start: 12-12-2024 End: 12-12-2024 Evaluation and management of inpatient LYNETTE SEGOVIA [facility] Start: 12-07-2024 End: 12-19-2024 Evaluation and management of inpatient Mine Nunez MD Work Phone: [facility] Start: 12-06-2024 End: 12-07-2024 Evaluation and management of inpatient Fer Hollins MD Work Phone: [facility] Comment on above: Abscess of left hip (Primary Dx) Start: 12-04-2024 End: 12-04-[address] 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); Squamous cell carcinoma of left hip; Hypercalcemia Start: 11-29-2024 End: 11-29-2024 ambulatory SREEDHAR JIANG [facility] Start: 11-10-2024 End: 11-27-2024 Evaluation and management of inpatient Baldomero Powell MD Work Phone: [facility] Soheila Aguirre 3 Start: 11-08-2024 End: 11-10-2024 Evaluation and management of inpatient Fer Kennedy MD Work Phone: [facility] H5 Comment on above: Abscess (Primary Dx) Start: 10-24-2024 End: 10-24-2024 ambulatory Julio SAMANIEGO [facility] Work Phone: Start: 10-24-2024 End: 10-24-2024 Departed Referred Julio Malik - Unit 100 Start: 10-24-2024 End: 10-24-2024 ambulatory Julio SAMANIEGO Facility:[facility] Start: 10-10-2024 End: 10-23-2024 Evaluation and management of inpatient Kishore Gutierrez MD Work Phone: [facility] [place] [address] Start: 09-30-2024 End: 09-30-2024 ambulatory formerly [facility] Ambulatory Start: 09-30-2024 End: 09-30-2024 Office outpatient visit 25 minutes Marlon Hughes MD Work Phone: [facility] [place] Comment on above: Clinical trial parti cipant (Primary Dx) Start: 09-30-2024 End: 09-30-2024 Patient encounter procedure Marlon Hughes MD Work Phone: [facility] Work Phone: Start: 09-24-2024 End: 09-24-2024 Office outpatient visit 10 minutes Ankit Nino MD Work Phone: [facility] [place] Comment on above: Counseling on health promotion and disease prevention (Primary Dx); Hidradenitis suppurativa Start: 09-13-2024 End: 09-17-2024 Evaluation and management of inpatient Ankit Nino MD Work Phone: [facility] [place] Comment on above: Wound infection (Renee francine Dx); Nausea; Constipation, unspecified constipation type; Viral infection; Smoking Start: 09-12-2024 End: 09-13-2024 Emergency department patient visit Xiomara Kauffman MD Work Phone: [facility] ED Comment on above: Buttock wound, left, initial encounter (Primary Dx); Sepsis, due to unspecified organism, unspecified whether acute organ dysfunction present (HCC); Hidradenitis suppurativa Start: 08-20-2024 End: 08-20-2024 ambulatory formerly [facility] Ambulatory Start: 08-20-2024 End: 08-20-2024 Office outpatient visit 25 minutes Marlon Hughes MD Work Phone: [facility] [place] Comment on above: Clinical trial parti cipant (Primary Dx) Start: 08-20-2024 End: 08-20-2024 Patient encounter procedure Marlon Hughes MD Work Phone: [facility] Work Phone: Start: 07-08-2024 End: 07-08-2024 ambulatory formerly [facility] Ambulatory Start: 05-27-2024 End: 05-27-2024 ambulatory [facility] Ambulatory Start: 05-27-2024 End: 05-27-2024 Patient encounter procedure [facility] Ambulatory Start: 04-04-2024 End: 04-04-2024 Office outpatient visit 15 minutes Kimber Last MD Work Phone: [facility] Comment on above: Clinical trial parti cipant (Primary Dx) Start: 04-04-2024 End: 04-04-2024 Patient encounter procedure Kimber Last MD Work Phone: [facility] Work Phone: Start: 02-29-2024 End: 02-29-2024 Subsequent hospital visit by physician [facility] [id number] Cr Nonv1 Holter/Ecg Resource [facility] [place] Comment on above: Clinical trial parti cipant Start: 02-29-2024 End: 02-29-2024 Office outpatient visit 25 minutes Kimber Last MD Work Phone: [facility] Comment on above: Clinical trial parti cipant (Primary Dx) Start: 02-29-2024 End: 02-29-2024 Patient encounter procedure Kimber Last MD Work Phone: [facility] Work Phone: Start: 02-09-2024 End: 02-09-2024 Office outpatient visit 40 minutes Kimber Last MD Work Phone: [facility] Comment on above: Clinical trial parti cipant (Primary Dx) Start: 02-09-2024 End: 02-09-2024 Patient encounter procedure Kimber Last MD Work Phone: [facility] Work Phone: Start: 01-16-2024 End: 01-16-2024 Office outpatient visit 40 minutes Kimber Last MD Work Phone: [facility] Comment on above: Clinical trial parti cipant (Primary Dx) Start: 01-16-2024 End: 01-16-2024 Patient encounter procedure Kimber Last MD Work Phone: [facility] Work Phone: Start: 12-29-2023 End: 12-29-2023 Office outpatient visit 40 minutes Kimber Last MD Work Phone: [facility] Comment on above: Clinical trial parti cipant (Primary Dx) Start: 12-29-2023 End: 12-29-2023 Patient encounter procedure Kimber Last MD Work Phone: [facility] Work Phone: Start: 12-11-2023 End: 12-11-2023 Office outpatient visit 40 minutes Kimber Last MD Work Phone: [facility] Comment on above: Clinical trial parti cipant (Primary Dx) Start: 12-11-2023 End: 12-11-2023 Patient encounter procedure Kimber Last MD Work Phone: [facility] Work Phone: Start: 11-23-2023 End: 11-23-2023 Subsequent hospital visit by physician [facility] [id number] Cr Nonv1 Holter/Ecg Resource [facility] [place] Comment on above: Clinical trial parti cipant Start: 11-23-2023 End: 11-23-2023 Office outpatient new 60 minutes Kimber Last MD Work Phone: [facility] Comment on above: Clinical trial parti cipant (Primary Dx) Start: 11-23-2023 End: 11-23-2023 Patient encounter procedure Kimber Last MD Work Phone: [facility] Work Phone: Start: 04-08-2023 Transcribe Orders Vivian Keen MD Work Phone: [facility] Laboratory Comment on above: Hidradenitis suppura tiva (Primary Dx) Procedures Date Procedure Procedure Detail Performing Clinician Start: 03-18-2025 Gram stain microscopy Julio SAMANIEGO Start: 03-18-2025 End: 03-18-2025 Microbial culture, routine Julio SAMANIEGO Start: 03-12-2025 Procedure Julio SAMANIEGO Comment on above: Test Ordered: [id number] Drug Screen 9 w/Con f, WBETHYL ALCOHOL, [...] was developed and its performance characteristicsdetermined by [employer]. It has not been cleared or approvedby the Food and Drug Administration.Oxycodones Confirmation Positive MX Reference Range: .Oxycodone 42.0 ng/mL MX Reference Range: .Oxymorphone Negative ng/mL MX Reference Range: .Expected metabolism of oxycodone class drugs: Parent Drug Detected Metabolites Oxycodone: Oxymorphone Oxymorphone: NoneConfirmation threshold: 1.0 ng/mLPerformed at: [facility] [address] [id number] Director: Michelle Riggs [facility], Phone: [phone] at: [facility] [address] [id number] Director: Steve Rae PhD, Phone: [phone] Start: 02-20-2025 Vitamin D, 25-hydroxy measurement Julio [...] Urinalysis complete panel - Urine Ronna Leon MANAGER LIFE INSURANCE - MICROMATIC HONE OPERATOR Work Phone: Start: 12-22-2024 Urnls dip stick/tablet rgnt auto w/o microscopy Ronna Leon MANAGER LIFE INSURANCE - MICROMATIC HONE OPERATOR Work Phone: Start: 12-22-2024 Culture bacterial any source anaerobic iso&id Ronna Leon MANAGER LIFE INSURANCE - MICROMATIC HONE OPERATOR Work Phone: Start: 12-22-2024 Radex hip unilateral with pelvis 2-3 views Ronna Leon MANAGER LIFE INSURANCE - MICROMATIC HONE OPERATOR Work Phone: Start: 12-22-2024 Radiologic exam chest single view Ronna Leon MANAGER [employer] INS[employer] - MICROMATIC HONE OPERATOR Work Phone: Start: 12-22-2024 Bacteria identified in Blood by Culture Ronna Leon MANAGER [employer] - MICROMATIC HONE OPERATOR Work Phone: Start: 12-22-2024 Comprehensive metabolic panel Ronna Luna Julisa zheng MANAGER [employer] INS[employer] - MICROMATIC HONE OPERATOR Work Phone: Start: 12-22-2024 Manual Differential panel - Blood Ronna Leon MANAGER [employer] INS[employer]ANCE - MICROMATIC HONE OPERATOR Work Phone: Start: 12-19-2024 Renal function panel Fer Gupta MD Work Phone: Start: 12-18-2024 Blood count complete auto&auto difrntl wbc Dara You DO Work Phone: Start: 12-17-2024 Renal function panel Fer Gupta MD Work Phone: Start: 12-16-2024 LEASING PROPERTY MANAGER MODIFIED BARIUM SWALLOW EVALUATION Fer Gupta MD Work Phone: Start: 12-16-2024 Radiologic exam swallow function contrast study Fer Gupta MD Work Phone: Start: 12-16-2024 Blood count complete auto&auto difrntl wbc Dara You DO Work Phone: Start: 12-15-2024 End: 12-15-2024 Comprehensive metabolic panel Mariah Solis MD Work Phone: Start: 12-14-2024 Blood count complete auto&auto difrntl wbc Dara R Avelino DO Work Phone: Start: 12-13-2024 Renal function panel Ethan Love MD Work Phone: Start: 12-12-2024 Ecg routine ecg w/least 12 lds trcg only w/o i&r Lynette Segovia MANAGER LIFE INSURANCE-MICROMATIC HONE OPERATOR Work Phone: Start: 12-12-2024 Mri lower extrem [...] 11-11-2024 Iadna hepatitis c quant & 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 Carlos Manuel Rader MD Work Phone: Start: [...] Work Phone: Start: 11-09-2024 Comprehensive metabolic panel E-Generatorjason Kod uru DO Work Phone: Start: 11-09-2024 Manual differential performed [Presence] in Blood E-Generatoruth Koduru DO Work Phone: Start: 11-08-2024 Hemoglobin glycosylated a1c E-Generatorjason Esposito u DO Work Phone: Start: 11-08-2024 [...] Start: 04-08-2023 QUANTIFERON - PLUS RHODES TUBE Vviian Keen MD Work Phone: Start: 04-08-2023 QUANTIFERON [...] for Adults (1 - 1-dose 75+ series) [facility] Start: 2033 RSV patient s and/or patients aged 60+ years (1 - 1-dose 60+ series) RSV patients and/or patients aged 60+ years (1 - 1-dose 60+ series) [facility] Start: 09-14-2029 Lipid panel [facility] Start: 11-13-2027 Diabetes mellitus screening [facility] Start: 09-14-2027 Diabetes mellitus screening [facility] Start: 11-08-2025 Hemoglobin A1c measurement [facility] Start: 09-14-2025 Hemoglobin A1c measurement [facility] Start: 05-19-2025 Influenza vaccination [facility] Start: 05-16-2025 End: 05-16-2025 Admission to same day surgery center 05/16/2025 1:05 PM EDT - 05/16/2025 3:05 PM EDT Surgery [facility] [place] [address] [place] [address] [place] [address] Department of [place] [address] SURGICAL PROCUREMENT, GRAFT, SKIN, FULL-THICKNESS, LOWER EXTREMITY [30476 (CPT )] [facility] [place] Comment on above: SURGICAL PROCUREMENT , GRAFT, SKIN, FULL-THICKNESS, LOWER EXTREMITY [40350 (CPT )] Start: 05-16-2025 End: 05-16-2025 Fth/gft fr w/dir clsr s/a/l ea addl 20 cm/< SURGICAL PROCUREMENT, GRAFT, SKIN, FULL-THICKNESS, LOWER EXTREMITY Wound of thigh 05/16/2025 1:05 PM EDT Virtual [facility] [place] Start: 05-16-2025 Subsequent hospital visit by physician 05/16/2025 11:35 AM EDT Hospital Encounter [facility] [place] [address] [place] [address] [place] [address] Department [place] [address] [facility] [place] Start: 05-13-2025 End: 05-13-2025 Patient encounter procedure 05/13/2025 2:00 PM EDT Office Visit [facility] [address] [address] [place] [phone] Astrid Hawley, MANAGER LIFE INSURANCE-MICROMATIC HONE OPERATOR [address] [place] [address] [facility] Start: 05-13-2025 End: 05-13-2025 Telemedicine consultation with patient 05/13/2025 2:00 PM EDT Telemedicine [facility] [address] [address] [place] [phone] Astrid Hawley, MANAGER LIFE INSURANCE-MICROMATIC HONE OPERATOR [address] [place] [address] [facility] Start: 04-30-2025 End: 04-30-2025 Admission to establishment 04/30/2025 9:15 AM EDT Pre-Admission Testing [facility] [address] [place] [address] [facility] Start: 04-07-2025 End: 04-07-2025 Telemedicine consultation with patient 04/07/2025 1:30 PM EDT Telemedicine [facility] [address] [address] [place] [phone] Astrid Hawley, MANAGER LIFE INSURANCE-MICROMATIC HONE OPERATOR [address] [place] [address] [facility] Start: 03-24-2025 End: 03-24-2025 Patient encounter procedure 03/24/2025 11:00 AM EDT Office Visit [facility] [address] [address] [address] [facility] Start: 03-11-2025 End: 03-11-2025 Patient encounter procedure 03/11/2025 12:00 PM EDT Office Visit [facility] [address] [place] [address] [address] [place] [phone] [place] [address] [facility] [place] [address] [facility] Start: 03-11-2025 End: 03-11-2025 Telemedicine consultation with patient 03/11/2025 12:00 PM EDT Telemedicine [facility] [address] [facility] [address]nd [place] [phone] [place] [address] [facility] [place] [address] [facility] Start: 03-10-2025 End: 03-10-2026 Drug Screen 9 Panel, Blood with Reflex to Confirmation Drug Screen 9 Panel, Blood with Reflex to Confirmation Lab Routine Encounter for monitoring opioid maintenance therapy Expected: 03/10/2025 (Approximate), Expires: 03/10/2026 [facility] Service Area Work Phone: Comment on above: Expected: 03/10/2025 (Approximate), Expires: 03/10/2026 Start: 03-10-2025 End: 03-10-2025 Patient encounter procedure 03/10/2025 2:00 PM EDT Office Visit [facility] [address] [facility] [address] [place] [phone] Astrid Hawley, MANAGER LIFE INSURANCE-MICROMATIC HONE OPERATOR [address] [place] [address] [facility] Start: 01-27-2025 End: 01-27-2025 Follow-up encounter 01/27/2025 2:40 PM EDT Follow-Up [facility] [address] [facility] [address] [place] [phone] Ara Riggs, PA-C [address] [place] [address] [facility] Start: 01-21-2025 End: 01-21-2025 Patient encounter procedure 01/21/2025 2:30 PM EDT Office Visit [facility] [address] [place] [address] Astrid Hawley, MANAGER LIFE INSURANCE-MICROMATIC HONE OPERATOR [address] [place] [address] [facility] Start: 01-16-2025 End: 01-16-2025 ambulatory 01/16/2025 4:00 PM EDT Infusion [facility] [address] [place] [address] [facility] Start: 01-16-2025 End: 01-16-2025 Patient encounter procedure 01/16/2025 3:00 PM EDT Office Visit [facility] [address] [place] [address] Sarah Rodarte, MANAGER LIFE INSURANCE-MICROMATIC HONE OPERATOR [address] [place] [address] [facility] Start: 01-13-2025 End: 01-13-2025 Patient encounter procedure 01/13/2025 2:00 PM EDT Appointment [facility] [address] Lower Level [address] [address] [facility] Start: 01-10-2025 End: 01-10-2025 Patient encounter procedure 01/10/2025 4:45 PM EDT Appointment [facility] [address] Lower Level [facility] [address] [place] [phone] [facility] Start: 01-10-2025 End: 01-10-2026 CBC W Auto Differential panel - Blood CBC and Auto Differential Lab Routine Squamous cell carcinoma of left hip Expected: 01/10/2025, Expires: 01/10/2026 [facility] Service Area Work Phone: Comment on above: Expected: 01/10/2025 , Expires: 01/10/2026 Start: 01-10-2025 End: 01-10-2026 Comprehensive metabolic 2000 panel - Serum or Plasma Comprehensive metabolic panel Lab Routine Squamous cell carcinoma of left hip Expected: 01/10/2025, Expires: 01/10/2026 [facility] Work Phone: Comment on above: Expected: 01/10/2025 , Expires: 01/10/2026 Start: 01-10-2025 End: 01-10-2026 Lactate dehydrogenase [Enzymatic activity/volume] in Serum or Plasma by Lactate to pyruvate reaction Lactate dehydrogenase Lab Routine Squamous cell carcinoma of left hip Expected: 01/10/2025, Expires: 01/10/2026 [facility] Work Phone: Comment on above: Expected: 01/10/2025 , Expires: 01/10/2026 Start: 01-10-2025 End: 01-10-2025 ambulatory 01/10/2025 1:00 PM EDT Infusion [facility] [address] [place] [address] [facility] Start: 01-10-2025 End: 01-10-2025 Patient encounter procedure [facility] Start: 01-09-2025 End: 01-09-2025 Patient encounter procedure [facility] Start: 01-08-2025 End: 01-08-2025 Patient encounter procedure [facility] Start: 01-07-2025 End: 01-07-2025 ambulatory [facility] Start: 01-07-2025 End: 01-07-2025 Patient encounter procedure [facility] Start: 01-07-2025 End: 01-07-2025 Patient encounter procedure 01/07/2025 8:30 AM EDT Appointment [facility] [address] [place] [address] [facility] Start: 01-06-2025 End: 01-06-2025 Patient encounter procedure 01/06/2025 6:00 PM EDT Appointment [facility] [address] [place] [address] [facility] Start: 12-30-2024 End: 12-30-2024 ambulatory [facility] Start: 12-30-2024 End: 12-30-2024 Patient encounter procedure 12/30/2024 10:00 AM EDT Office Visit [facility] [address] [place] [address] Astrid Hawley, MANAGER LIFE INSURANCE-MICROMATIC HONE OPERATOR [address] [place] [address] [facility] Start: 12-20-2024 End: 12-20-2024 ambulatory [facility] Start: 12-17-2024 End: 12-17-2024 ambulatory [facility] Start: 12-17-2024 End: 12-17-2024 Patient encounter procedure 12/17/2024 1:00 PM EDT Office Visit [facility] [address] [place] [phone] Astrid Hawley, MANAGER LIFE INSURANCE-MICROMATIC HONE OPERATOR [address] [place], [place] [phone] [facility] Start: 12-06-2024 End: 12-06-2025 CBC W Auto Differential panel - Blood CBC and Auto Differential Lab Routine Squamous cell carcinoma of left hip Expected: 12/06/2024, Expires: 12/06/2025 [facility] Service Area Work Phone: Comment on above: Expected: 12/06/2024 , Expires: 12/06/2025 Start: 12-06-2024 End: 12-06-2025 Comprehensive metabolic 2000 panel - Serum or Plasma Comprehensive metabolic panel Lab Routine Squamous cell carcinoma of left hip Expected: 12/06/2024, Expires: 12/06/2025 [facility] Work Phone: Comment on above: Expected: 12/06/2024 , Expires: 12/06/2025 Start: 12-06-2024 End: 12-06-2025 Corticotropin [Mass/volume] in Plasma Acth Lab Routine Squamous cell carcinoma of left hip Expected: 12/06/2024, Expires: 12/06/2025 [facility] Work Phone: Comment on above: Expected: 12/06/2024 , Expires: 12/06/2025 Start: 12-06-2024 End: 12-06-2025 Cortisol [Mass or Moles/volume] in Serum or Plasma --AM peak specimen Cortisol Am Lab Routine Squamous cell carcinoma of left hip Expected: 12/06/2024, Expires: 12/06/2025 [facility] Work Phone: Comment on above: Expected: 12/06/2024 , Expires: 12/06/2025 Start: 12-06-2024 End: 12-06-2025 Lactate dehydrogenase [Enzymatic activity/volume] in Serum or Plasma by Lactate to pyruvate reaction Lactate dehydrogenase Lab Routine Squamous cell carcinoma of left hip Expected: 12/06/2024, Expires: 12/06/2025 [facility] Work Phone: Comment on above: Expected: 12/06/2024 , Expires: 12/06/2025 Start: 12-06-2024 End: 12-06-2025 Tsh With Reflex To Free T4 If Abnormal Tsh With Reflex To Free T4 If Abnormal Lab Routine Squamous cell carcinoma of left hip Expected: 12/06/2024, Expires: 12/06/2025 [facility] Work Phone: Comment on above: Expected: 12/06/2024 , Expires: 12/06/2025 Start: 11-29-2024 End: 11-29-2024 ambulatory [facility] Start: 11-12-2024 End: 11-12-2024 ambulatory [facility] Start: 09-30-2024 End: 09-30-2024 Patient encounter procedure 09/30/2024 10:00 AM EST Office Visit [facility] [address] [facility] [address] [place] [address] [place] [address] Department of Dermatology/[place] [address] [facility] Start: 09-24-2024 End: 09-24-2024 Telemedicine consultation with patient 09/24/2024 8:40 AM EST Telemedicine [facility] [address] [place] [address] [place] [address] [place] [address] [place] [address] [facility] Start: 09-20-2024 End: 09-20-2024 Patient encounter procedure 09/20/2024 11:30 AM EST Office Visit [address] [facility] [address] [place] [address] Ronna Carpenter, MANAGER LIFE INSURANCE[address] [place] [address] [facility] Start: 09-18-2024 End: 09-17-2025 CBC panel - Blood by Automated count CBC Lab Routine Wound infection Expected: 09/18/2024 (Approximate), Expires: 09/17/2025 [facility] Work Phone: Comment on above: Expected: 09/18/2024 (Approximate), Expires: 09/17/2025 Start: 09-18-2024 End: 09-17-2025 Renal function 2000 panel - Serum or Plasma Renal function panel Lab Routine Wound infection Expected: 09/18/2024 (Approximate), Expires: 09/17/2025 [facility] Service Area Work Phone: Comment on above: Expected: 09/18/2024 (Approximate), Expires: 09/17/2025 Start: 05-19-2024 COVID-19 Vaccine ( season) COVID-19 Vaccine ( season) [facility] Start: 05-19-2024 Influenza vaccination [facility] Start: 05-19-2024 [facility] Start: 04-12-2024 End: 04-12-2024 Patient encounter procedure 04/12/2024 9:00 AM EDT Office Visit [facility] [address] [facility] [address] [place] [address] [place] [address] [address] Department of Dermatology/House Staff [place] [phone] [facility] Start: 03-29-2024 End: 03-29-2024 Patient encounter procedure 03/29/2024 9:00 AM EDT Office Visit [facility] [address] [facility] [address] [place] [address] [place] [address] [address] Department of Dermatology/[place] [address] [facility] Start: 03-19-2024 DTaP/Tdap/Td Vaccine s (2 - Td or Tdap) DTaP/Tdap/Td Vaccines (2 - Td or Tdap) [facility] Start: 03-19-2024 [facility] Start: 02-29-2024 End: 02-28-2025 ECG 12 lead (Ancillary Performed) [facility] Service Area Work Phone: Comment on above: Expected: 02/29/2024 (Approximate), Expires: 02/28/2025 Once for 1 Occurrenc es starting 02/29/2024 until 02/29/2024 Start: 02-09-2024 End: 02-09-2024 Patient encounter procedure 02/09/2024 9:30 AM EDT Office Visit [facility] [address] [facility] [address] [place] [address] [place] [address] Department of Dermatology/[place] [address] [facility] Start: 01-16-2024 End: 01-16-2024 Patient encounter procedure 01/16/2024 10:30 AM EDT Office Visit [facility] [address] [facility] [address] [place] [address] [place] [address] Department of Dermatology/[place] [address] [facility] Start: 11-23-2023 Subsequent hospital visit by physician 11/23/2023 11:01 AM EST Hospital Encounter [facility] [place] [address] [facility] [address] [place] [address] Clinical trial participant [facility] [place] Comment on above: Clinical trial parti cipant Start: 2023 Pneumococcal vaccination Pneum ococcal Vaccine (2 of 2 - PCV) [facility] Start: 2023 Pneumococcal Vaccine : 50+ Years (2 of 2 - PCV) Pneumococcal Vaccine: 50+ Years (2 of 2 - PCV) [facility] Start: 2023 Prostate specific antigen measurement PSA Prostate Cancer Screening [facility] Start: 2023 Screening for malign ant neoplasm of lung [facility] Start: 2023 Zoster Vaccines (1 of 2) Zoste r Vaccines (1 of 2) [facility] Start: 2023 [facility] Start: 05-19-2023 COVID-19 Vaccine ( season) COVID-19 Vaccine ( season) [facility] Start: 05-19-2023 Influenza vaccination Influenza Vacc ine (#1) [facility] Start: 03-19-2015 Pneumococcal vaccination Pneum ococcal Vaccine (2 of 2 - PCV) [facility] Start: 03-19-2015 [facility] Start: 1995 DTaP/Tdap/Td Vaccine s (1 - Tdap) DTaP/Tdap/Td Vaccines (1 - Tdap) [facility] Start: 1992 DTaP/Tdap/Td Vaccine s (1 - Tdap) DTaP/Tdap/Td Vaccines (1 - Tdap) [facility] Start: 1992 Hepatitis B Vaccines (1 of 3 - 19+ 3-dose series) Hepatitis B Vaccines (1 of 3 - 19+ 3-dose series) [facility] Start: 1992 Urine screening for protein [facility] Start: 1992 Zoster Vaccines (1 of 2) Zoste r Vaccines (1 of 2) [facility] Start: 1992 [facility] Start: 1991 Diabetes mellitus screening Diabetes Screening [facility] Start: 1991 Hepatitis C screening [facility] Start: 1985 [facility]: [facility] COVID-19 Vaccine (#1) COVID-19 Vacci ne (#1) [facility] Start: 1978 [facility] Start: 1974 MMR Vaccines (1 of 1 - Standard series) MMR Vaccines (1 of 1 - Standard series) [facility] Start: 1974 [facility] Start: 01-29-1974 COVID-19 Vaccine (#1) COVID-19 Vacci ne (#1) [facility] Start: 01-29-1974 Examination of skin [facility] Start: 1973 Hepatitis B Vaccines (1 of 3 - 3-dose series) Hepatitis B Vaccines (1 of 3 - 3-dose series) [facility] Start: 1973 HIV screening [facility] Start: 1973 Lipid panel Lipid Panel [facility] Start: 1973 Screening for malign ant neoplasm of colon [facility] Start: 1973 Yearly Adult Physical Yearly Adult P hysical [facility] Start: 1973 [facility] End: 12-17-2024 Acupuncture eval and treat [facility] Service Area Work Phone: End: 09-12-2024 Aerobic and Anaerobic Culture with Stain [employer] Work Phone: Comment on above: Once (Lab) for 1 Occ urrences starting 09/12/2024 until 09/12/2024 End: 11-08-2024 Aerobic and Anaerobic Culture with Stain Aerobic and Anaerobic Culture with Stain Microbiology STAT Once (Lab) for 1 Occurrences starting 11/08/2024 until 11/08/2024 [employer] Work Phone: Comment on above: Once (Lab) for 1 Occ urrences starting 11/08/2024 until 11/08/2024 End: 12-06-2024 Aerobic and Anaerobic Culture with Stain [employer] Work Phone: Comment on above: Once (Lab) for 1 Occ urrences starting 12/06/2024 until 12/06/2024 End: 12-22-2024 Aerobic and Anaerobic Culture with Stain [employer] Work Phone: Comment on above: Once (Lab) for 1 Occ urrences starting 12/22/2024 until 12/22/2024 End: 09-16-2024 AFB CULTURE & STAIN; ARUP; [id number] - Miscellaneous Test [facility] Work Phone: Comment on above: Once (Lab) for 1 Occ urrences starting 09/16/2024 until 09/16/2024, 1 completed End: 11-18-2024 Art Therapy eval and treat [facility] Work Phone: End: 12-08-2024 Art Therapy eval and treat [facility] Work Phone: Bacteria identified in Blood by Culture Colto Bacteria identified in Blood by Culture Blood Culture Microbiology Routine 09/13/2024 11:14 PM EST [facility] Work Phone: Bacteria identified in Blood by Culture Colto Bacteria identified in Blood by Culture Colto Bacteria identified in Blood by Culture [facility] Bacteria identified in Unspecified specimen by Aerobe culture Culture, Aerobic Bacteria with Gram Stain Microbiology STAT 09/12/2024 9:58 PM EST [facility] End: 11-08-2024 Bacteria identified in Unspecified specimen by Aerobe culture Culture, Aerobic Bacteria with Gram Stain Microbiology Timed Once for 1 Occurrences starting 11/08/2024 until 11/08/2024 [facility] Work Phone: Comment on above: Once for 1 Occurrenc es starting 11/08/2024 until 11/08/2024 Bacteria identified in Unspecified specimen by Aerobe culture Culture, Aerobic Bacteria with Gram Stain Microbiology STAT 12/06/2024 12:18 PM EDT [facility] Bacteria identified in Unspecified specimen by Aerobe culture Culture, Aerobic Bacteria with Gram Stain Microbiology STAT 12/22/2024 1:37 PM EDT [facility] End: 09-12-2024 Bacteria identified in Unspecified specimen by Anaerobe culture [facility] Comment on above: Once for 1 Occurrenc es starting 09/12/2024 until 09/12/2024 End: 11-08-2024 Bacteria identified in Unspecified specimen by Anaerobe culture Anaerobic culture Microbiology Timed Once for 1 Occurrences starting 11/08/2024 until 11/08/2024 [facility] Comment on above: Once for 1 Occurrenc es starting 11/08/2024 until 11/08/2024 End: 12-06-2024 Bacteria identified in Unspecified specimen by Anaerobe culture [facility] Comment on above: Once for 1 Occurrenc es starting 12/06/2024 until 12/06/2024 Bacteria identified in Unspecified specimen by Anaerobe culture Anaerobic culture Microbiology STAT 12/22/2024 1:37 PM EDT [facility] Basic metabolic 2000 panel - Serum or Plasma [facility] Work Phone: CBC W Auto Different ial panel - Blood CBC and Auto Differential Lab Routine Morning draw (Lab) until discontinued starting 09/14/2024, 4 completed [facility] Service Area Work Phone: Comment on above: Morning draw (Lab) u ntil discontinued starting 09/14/2024, 4 completed CBC W Auto Different ial panel - Blood [facility] Service Area Work Phone: CBC W Auto Different ial panel - Blood [facility] Work Phone: CBC W Auto Different ial panel - Blood [facility] Work Phone: End: 10-11-2024 Consult to Interventional Radiology [facility] Work Phone: End: 11-12-2024 Consult to Interventional Radiology [facility] Work Phone: End: 11-20-2024 Consult to Interventional Radiology [facility] Work Phone: ECG 12 Lead ECG 12 Lead ECG Routine 09/14/2024 12:30 AM EST [facility] Work Phone: End: 11-13-2024 ECG 12 lead [facility] Work Phone: ECG 12 lead (Ancilla ry Performed) ECG 12 lead (Ancillary Performed) ECG Routine Clinical trial participant 11/23/2023 11:[address] [facility] Work Phone: Electrocardiogram, 12-lead PRN ACS symptoms Electrocardiogram, 12-lead PRN ACS symptoms ECG Routine As needed until discontinued starting 09/13/2024 [facility] Work Phone: Comment on above: As needed until disc ontinued starting 09/13/2024 Electrocardiogram, 12-lead PRN ACS symptoms [facility] Work Phone: Electrocardiogram, 12-lead PRN ACS symptoms [facility] Work Phone: Electrocardiogram, 12-lead PRN ACS symptoms [facility] Work Phone: Fth/gft fr w/dir cls r s/a/l ea addl 20 cm/< SURGICAL PROCUREMENT, GRAFT, SKIN, FULL-THICKNESS, LOWER EXTREMITY Wound of thigh [facility] [place] End: 09-13-2024 Fungitell Beta-D Glucan Serum [facility] Work Phone: Comment on above: Once (Lab) for 1 Occ urrences starting 09/13/2024 until 09/13/2024 Fungus identified in Unspecified specimen by Culture Fungal Culture/Smear Microbiology Routine 09/14/2024 11:[address] [facility] Work Phone: Fungus identified in Unspecified specimen by Culture [facility] Work Phone: End: 09-13-2024 Histoplasma antigen, serum [facility] Work Phone: Comment on above: Once (Lab) for 1 Occ urrences starting 09/13/2024 until 09/13/2024 Magnesium [Mass/volu me] in Serum or Plasma Magnesium Lab Routine Morning draw (Lab) until discontinued starting 09/14/2024, 4 completed [facility] Work Phone: Comment on above: Morning draw (Lab) u ntil discontinued starting 09/14/2024, 4 completed Magnesium [Mass/volu me] in Serum or Plasma [facility] Work Phone: Magnesium [Mass/volu me] in Serum or Plasma [facility] Work Phone: End: 12-21-2024 Magnesium [Mass/volume] in Serum or Plasma [facility] Work Phone: End: 11-18-2024 Music Therapy eval and treat [facility] Work Phone: End: 12-08-2024 Music Therapy eval and treat [facility] Work Phone: Phosphate [Mass/volu me] in Serum or Plasma [facility] Work Phone: Renal function 1999 panel - Serum or Plasma Renal Function Panel Lab Routine Morning draw (Lab) until discontinued starting 09/14/2024, 4 completed [facility] Work Phone: Comment on above: Morning draw (Lab) u ntil discontinued starting 09/14/2024, 4 completed Renal function 2000 panel - Serum or Plasma [facility] Work Phone: Renal function 2000 panel - Serum or Plasma [facility] Work Phone: Immunizations Immunization Date Immunization Notes Care Provider Fa cility 12-08-2024 influenza vaccine tiss-cult subunt (Flucelvax) STANDARD-DOSE injection 0.5 mL Fer Hollins MD Work Phone: [facility] Payers Date Payer Category Payer Self-pay 2024 Medicaid (Managed Care) [id number] 2024 Medicaid HMO [id number] 2024 Unknown [id number] 2024 Medicaid [id number] 2022 Managed Care (Private) [employer] [facility] [id number] 2022 Private Health Insurance [id number]. [id number] 2022 Private Health Insurance [id number] 1975 Unknown [id number] 2.16840.1.977689.3.579. 2.1244 1973 Unknown [id number] 2.16840.1.015685.3.579. 2.1244 1973 Unknown [id number] 2.840.1.073530.3.579. 2.1244 1973 Unknown [id number] 2.16.840.1.056884.3.579. 2.1244 1973 Unknown [id number] 2.16.840.1.434291.3.579. 2.1243 1973 Unknown [id number] 2.16.840.1.034731.3.579. 2.1243 1973 Unknown [id number] 2.16.840.1.110198.3.579. 2.1243 1973 Unknown [id number] 2.16.840.1.690654.3.579. 2.1244 1973 Unknown [id number] 2.16.840.1.382109.3.579. 2.1244 1973 Unknown [id number] 2.16.840.1.825269.3.579. 2.1244 1973 Unknown [id number] 2.16.840.1.411745.3.579. 2.1244 1973 Unknown [id number] 2.16.840.1.953234.3.579. 2.1244 1973 Unknown [id number] 2.16.840.1.153864.3.579. 2.1244 1973 Unknown [id number] 2.16.840.1.330946.3.579. 2.1244 1973 Unknown [id number] 2.16.840.1.306898.3.579. 2.1244 1973 Unknown [id number] 2.16.840.1.714534.3.579. 2.1244 1973 Unknown [id number] 2.16.840.1.871963.3.579. 2.1244 1973 Unknown [id number] 2.16.840.1.314904.3.579. 2.1244 1973 Unknown [id number] 2.16.840.1.931608.3.579. 2.1244 1973 Unknown [id number] 2.16.840.1.139349.3.579. 2.1244 1973 Unknown [id number] 2.16.840.1.036168.3.579. 2.1244 1973 Unknown [id number] 2.16.840.1.332735.3.579. 2.1244 1973 Unknown [id number] 2.16.840.1.040976.3.579. 2.1244 1973 Unknown [id number] 2.16.840.1.774858.3.579. 2.1244 1973 Unknown [id number] 2.16.840.1.067891.3.579. 2.1244 1973 Unknown [id number] 2.16.840.1.767281.3.579. 2.1244 1973 Unknown [id number] 2.16.840.1.599405.3.579. 2.1244 1973 Unknown [id number] 2.16.840.1.835255.3.579. 2.1244 1973 Unknown [id number] 2.16.840.1.433028.3.579. 2.1244 1973 Unknown [id number] 2.16.840.1.501892.3.579. 2.1244 1973 Unknown [id number] 2.16.840.1.297289.3.579. 2.1244 1973 Unknown [id number] 2.16.840.1.200419.3.579. 2.1244 1973 Unknown [id number] 2.16.840.1.989647.3.579. 2.1244 1973 Unknown [id number] 2.16.840.1.958555.3.579. 2.1244 1973 Unknown [id number] 2.16.840.1.583058.3.579. 2.1245 Unknown [id number] 2.16.840.1.296785.3.579. 2.462 Unknown [id number] 2.16.840.1.014666.3.579. 2.462 Unknown [id number] 2.16.840.1.955174.3.579. 2.462 Unknown [id number] 2.16.840.1.322107.3.579. 2.462 Unknown [id number] 2.16.840.1.483880.3.579. 2.462 Unknown [id number] 2.16.840.1.122450.3.579. 2.462 Unknown [id number] 2.16.840.1.959648.3.579. 2.462 Unknown [id number] 2.16.840.1.676226.3.579. 2.462 Social History Date Type Detail Facility [facility] Start: 1975 Sex Assigned At Not on file [facility] Start: 09-13-2024 End: 02-17-2025 Gender identity Not on file [facility] Start: 03-29-2023 End: 02-04-2025 Exposure to SARS-CoV-2 (event) Not sure [facility] Start: 04-08-2023 End: 12-27-2024 Sex Male (finding) [facility] Start: 09-18-1986 [facility] daily [facility] Work Phone: Start: 09-18-1986 End: 09-18-1986 History of tobacco use Cigarette Smoker [place] Work Phone: Start: 09-13-2024 End: 02-17-2025 Cigarettes smoked current (pack per day) - Reported 1 [facility] Work Phone: Start: 09-13-2024 End: 11-10-2024 Tobacco use and exposure Smokeless tobacco non-user [facility] Work Phone: How often to you hav e a drink containing alcohol? Never [facility] Work Phone: Start: 11-23-2023 How many standard drinks containing alcohol do you have on a typical day? Patient does not drink [facility] Work Phone: How hard is it for y ou to pay for the very basics like food, housing, medical care, and heating Very hard [facility] In the past 12 month s, was there a time when you were not able to pay the mortgage or rent on time? Yes [facility] Work Phone: At any time in the p ast 12 months, were you homeless or living in group home [including now]? No [facility] Work Phone: How hard is it for y ou to pay for the very basics like food, housing, medical care, and heating Somewhat hard [facility] (I/We) worried wheth er (my/our) food would run out before (I/we) got money to buy more. Sometimes true [facility] Work Phone: (I/We) worried Urgent Group er (my/our) food would run out before (I/we) got money to buy more. Never true [facility] Start: 11-10-2024 Tobacco smoking stat us [facility] Ex-smoker [facility] Start: 09-18-2023 End: 09-18-1986 History of tobacco use Current smoker [place] Work Phone: Start: 11-10-2024 End: 04-30-2025 Alcoholic beverage intake Ex-drinker (finding) [facility] Work Phone: Start: 1975 Sex Assigned At Male [facility] Goals Date Patient Goal Desired Activity /State Personal health goal Functional Status Date Assessment Result Facility 12-07-2024 Are you deaf, or do you have serious difficulty hearing No 12/07/2024 2:58 PM Josie Laurent RN No [email or web address] 12-07-2024 Are you blind, or do you have serious difficulty seeing, even when wearing glasses No 12/07/2024 2:58 PM EDT Josie Townsend RN No [facility] 12-07-2024 Do you have serious difficulty walking or climbing stairs Yes 12/07/2024 2:58 PM EDT Josie Townsend RN Yes [facility] 12-07-2024 Because of a physica l, mental, or emotional condition, do you have difficulty doing errands alone such as visiting a physician's office or shopping Yes 12/07/2024 2:58 PM EDT Josie Townsend RN Yes [facility] Mental Status Date Assessment Result Facility 12-07-2024 Because of a physica l, mental, or emotional condition, do you have serious difficulty concentrating, remembering, or making decisions No 12/07/2024 2:58 PM EDT Josie Townsend RN No [facility] Clinical Notes 04-04-2024 to 04-07-2025 TRAVIS Watson [...] 04/07/2025 Subjective HISTORY OF PRESENT ILLNESS: Kevan aL is a 49 y.o. male who presents [...] to rulel out fracture as ordered by [place] provider. Also with some left hip snow. [...] Wishes to make his brother, Omkar La ([phone]) his HCPOA Next Follow-Up Visit: Return to [...] AM-5 PM , press option #5 Or [employer] Secure Chat documented in this encounter [facility] Work Phone: 03-24-2025 History of Present illness [...] to a Marjolin ulcer. He presented to [facility] on 12/24 for worsening disease of left [...] nursing note reviewed. Exam conducted with a home care and home health aides teacher present. Constitutional: General: not in acute distress. [...] be getting patient scheduled for possible April timeframe -Will follow up post-operatively in appropriate timeframe after surgery -Case request submitted (03/03) with appropriate outreach to admin -Recommend for continued WTD dressing BID -Continue with Q2 turns to offload bony prominences -Continue to optimize protein for optimal wound healing Kris Ren PA-C Plastic and Reconstructive Surgery documented in this encounter [facility] Work Phone: 03-11-2025 History of Present illness [...] close his loop colostomy. Kong Mina MD figure clerk Division of Surgical Oncology [phone] [email or web address] SUBJECTIVE Kevan La is a 49 y.o. [...] this encounter [facility] Work Phone: 03-10-2025 History of Present illness [...] Wishes to make his brother, Omkar La ([phone]) his HCPOA Next Follow-Up Visit: Return to [...] press option #5, then option #1. Or [employer] Secure Chat documented in this encounter [facility] Work Phone: 03-03-2025 History of Present illness [...] to a Marjolin ulcer. He presented to [facility] on 12/24 for worsening disease of left [...] nursing note reviewed. Exam conducted with a home care and home health aides teacher present. Constitutional: General: not in acute distress. [...] this encounter [facility] Work Phone: 01-09-2025 History of Present illness Narrative Images from the original note were not included. Radiation Oncology On Treatment Visit Patient Name: Kevan La : 1975 Referring Provider: No ref. provider found Primary Care Provider: No Assigned PCP Ernestina Hagan MD Care Team: Patient Care Team: No Assigned Pcp Ernestina Hagan MD as PCP - General (Oil Field Laborer) Sreedhar Jiang MD as Consulting Physician (Hematology [...] this encounter [facility] Work Phone: 12-24-2024 Plan of care note [...] maintained or improved Outcome: Adequate for Discharge [facility] 12-24-2024 Miscellaneous Notes Problem: Knowledge Deficit [...] Awaiting sensitivity results documented in this encounter [facility] 12-24-2024 Note Hospitalist Progress Note Subjective: Admit Date: 12/22/2024 PCP: No primary care provider on file. Room#: K0-040/D1-822 A Chief Complaint Patient presents with Wound Infection Pt arrives by life care from [facility] in [place], per life care pt has had wound [...] Required levophed but is now off of. [facility] accepted him but waiting on bed until later this afternoon. He was boarded in our ED for 16hrs. Seen at bedside. Wounds are foul smelling. Pt states he was dropped off here from [facility] as it was the closest [...] body function (HIGH). (more content not included)... [facility] 12-24-2024 History of Present illness Narrative Hospitalist Progress Note Subjective: Admit Date: 12/22/2024 PCP: No primary care provider on file. Room#: I7-702/F4-927 A Chief Complaint Patient presents with Wound Infection Pt arrives by life care from [facility] in [place], per life care pt has had wound [...] Required levophed but is now off of. [facility] accepted him but waiting on bed until later this afternoon. He was boarded in our ED for 16hrs. Seen at bedside. Wounds are foul smelling. Pt states he was dropped off here from [facility] as it was the closest [...] Date -today - Location - Transfer to [facility] - Pending the following -transfer to Total time spent (which include face to face and non face to face encounters) : More than 30 minutes Extended Emergency Contact Information Primary Emergency Contact: Omkar La Mobile Relation: Brother Arben Fernandez MD Division of Hospital Medicine [facility]patient Medical Services[place] [place] to Dose Vancomycin - Progress Note Lab Results Component Value Date CREATININE 1.04 12/24/2024 BUN 7 (L) 12/24/2024 WBC 14.8 (H) 12/24/2024 Doses, serum creatinine, and vancomycin levels interfaced automatically to [employer] and data has been analyzed and interpreted. [...] creatinine, and vancomycin levels interfaced automatically to [employer] and data has been analyzed and interpreted. [...] via Secure Chat documented in this encounter [facility] 12-24-2024 Note Discharge Summary Kevan La [...] Required levophed but is now off of. [facility] accepted him but waiting on bed until later this afternoon. He was boarded in our ED for 16hrs. Seen at bedside. Wounds are foul smelling. Pt states he was dropped off here from [facility] as it was the closest [...] XR hip left 2 or 3 views [[id number]] Collected: 12/22/24 1330 Order Status: Completed Updated: 12/22/241333 Narrative: Patient Name: KEVAN LA : 1975 Exam Date/Time: 12/22/2024 13 (more content not included)... [facility] 12-24-2024 Hospital course Narrative Discharge [...] Required levophed but is now off of. [facility] accepted him but waiting on bed until later this afternoon. He was boarded in our ED for 16hrs. Seen at bedside. Wounds are foul smelling. Pt states he was dropped off here from [facility] as it was the closest [...] ANIONGAP 10 7 LIVER PROFILE: Recent Labs 04/06/25 1253 AST 16 ALT 6 BILITOT 0.4 [...] XR hip left 2 or 3 views [[id number]] Collected: 12/22/241329 Order Status: Completed Updated: 12/22/241333 [...] 1:33 PM EDT XR chest 1 view [[id number]] Collected: 12/22/24 132 Order Status: Completed Updated: 12/22/24 1326 Narrative: [facility] 1975 [id number] Exam Date/Time: 12/22/2024 13:20 Procedure: XR CHEST [...] FL modified barium with video and speech [[id number]] Collected: 12/16/24 1515 Order Status: Completed Updated: 12/22/24 1150 Narrative: Interpreted By: Jayson Abdi and Patriarca Hannah STUDY: FL MODIFIED BARIUM SWALLOW STUDY;; 12/16/2024 9:38 am INDICATION: Signs/Symptoms:r/o any dysphagia. COMPARISON: None. ACCESSION NUMBER(S): [id number] ORDERING CLINICIAN: GIBSON MENDIOLA TECHNIQUE: MBSS completed. Informed verbal consent obtained prior to completion of exam. Trials of thin, nectar thick, puree, and regular solids given. Fluoroscopy time : 1.8 minutes. Total of 2800 images were provided for review. 100 mL barium contrast. LEASING PROPERTY MANAGER: Makayla Dunham Phone/Pager: Secure Chat SPEECH FINDINGS: Patient Name: Kevan La : 1975 Today's Date: 12/16/24 Start Time: 845 Stop Time: 915 Time Calculation (min): 30 min Modified Barium Swallow Study completed. Informed verbal consent obtained prior to completion of exam. Trials of thin liquid, mildly thick liquid, puree, and solids were given. LEASING PROPERTY MANAGER: MINDY Camp Contact info: [employer] Reason for Referral: C/f aspiration/oropharyngeal dysphagia Patient Hx: Kevan La is a 49 y.o. 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 LEASING PROPERTY MANAGER Frequency: 2x per week Duration: 1-2 [...] given on all accounts. Treatment Provided Today: LEASING PROPERTY MANAGER provided extensive education and training to [...] further evaluation by medical specialists, as applicable. LEASING PROPERTY MANAGER Impressions with Severity Rating: Pt presenting [...] obtained, suspect within normal limits for clearance LEASING PROPERTY MANAGER recommends cautious initiation of thin liquids and easy to chew diet. See additional PO intake guidelines outlined below. If pt demonstrates any change/decline in medical/mental/respiratory status please make NPO and alert LEASING PROPERTY MANAGER. Will continue to follow while in acute care setting to ensure diet tolerance and use of safe swallow guidelines. aware of recommendations Dayna's Penetration Aspiration Scale Thin Liquids: 3. PENETRATION with LOW ASPIRATION risk - contrast remains above vocal cords, visible residue Ludell Thick Liquids: 3. PENETRATION with LOW ASPIRATION [...] Dilan Hester. This study was interpreted at [place], [place]. MACRO: None Signed by: Jayson Abdi 12/16/2024 4:54 PM Dictation workstation: [id number] MR femur left w and wo IV contrast [[id number]] Collected: 12/12/24 1334 Order Status: Completed Updated: 12/22/24 1150 Narrative: Interpreted By: Kong Armijo and Mason Montague STUDY: MRI of the left femur with and without contrast dated 12/12/2024. INDICATION: Gluteal abscess/malignancy. Biopsy result of squamous cell carcinoma. History of chronic hidradenitis suppurativa. COMPARISON: None. Correlation is made with 12/06/2024 and 11/19/2024 CT examinations. ACCESSION NUMBER(S): [id number] ORDERING CLINICIAN: GIBSON MENDIOLA TECHNIQUE: Multiplanar multisequence [...] Kong Armijo 12/12/2024 1:33 PM Dictation workstation: [id number] MR femur left wo IV contrast [[id number]] Collected: 12/12/24 1320 Order Status: Completed Updated: 12/22/24 1150 Narrative: Interpreted By: Kong Armijo, and Mason Montague STUDY: MRI of the left femur with and without contrast dated 12/10/2024. 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 History of chronic hidradenitis suppurativa. COMPARISON: Correlation is made with 12/06/2024 and 11/19/2024 CT examinations. ACCESSION NUMBER(S): [id number] ORDERING CLINICIAN: TOYA RUBIO TECHNIQUE: Multiplanar multisequence MRI of the left femur was performed with and without intravenous gadolinium based contrast. FINDINGS: No images were obtained as the patient was unable to cooperate for the exam. Impression: No images were obtained as the patient was unable to cooperate for the exam. MACRO: None Signed by: Kong Armijo 12/12/2024 1:18 PM Dictation workstation: [id number] CT pelvis w IV contrast [[id number]] Collected: 12/06/24 1324 Order Status: Completed Updated: [...] Complexity: follow up within 7-14 calendar days (01219) [] Severe Complexity: follow up within 7 calendar days (06342) FOLLOW UP TESTING, PENDING RESULTS OR REFERRALS [...] 12/24/2024, 10:10 AM documented in this encounter [facility] 12-24-2024 Nurse Note See new oxy 5 mg one time dose order [facility] 12-24-2024 Nurse Note See new oxy 5 mg one time dose order Attending secure chatted due to patient asking for PRN pain meds with soft BP's. Awaiting answer Called and this nurse gave report to Lori RN for patient. P/U time still 1230. Patient updated. Call received from . Patient has bed waiting at [facility] room [facility]. Nurse to nurse report number [phone]. Social work to arrange transportation in AM. Patient notified documented in this encounter [facility] 12-24-2024 Nurse Note Attending secure chatted due to patient asking for PRN pain meds with soft BP's. Awaiting answer [facility] 12-24-2024 Nurse Note Called and this nurse gave report to Lori RN for patient. P/U time still 1230. Patient updated. [facility] 12-24-2024 Note Pharmacy to Dose Van comycin - Progress Note Lab Results Component Value Date CREATININE 1.04 12/24/2024 BUN 7 (L) 12/24/2024 WBC 14.8 (H) 12/24/2024 Doses, serum creatinine, and vancomycin levels interfaced automatically to [employer] and data has been analyzed and interpreted. [...] Warren PharmD Clinical Pharmacist Available via [employer] [facility] 12-24-2024 Plan of care note [...] Wise RN Outcome: Progressing 12/24/2024103 by Diana Wies RN Outcome: Progressing 12/23/20242013 by Diana Wise [...] 12/23/20242013 by Diana Wise RN Outcome: Progressing [facility] 12-24-2024 Nurse Note Call received from . Patient has bed waiting at [facility] room [facility]. Nurse to nurse report number [phone]. Social work to arrange transportation in AM. Patient notified T [facility] 12-23-2024 Plan of care note Problem: [...] monitored and maintained or improved Outcome: Progressing [facility] 12-23-2024 Consult note Associated Order (s): [...] hip and hidradenitis suppurativa who presented to [facility] 12/22 from [facility] for increased drainage and malodor of L hip wound. He is awaiting transfer to [facility]. Of note, patient recently hospitalized at 12/07 - 12/17 and was discharged to [facility] on Augmentin through 01/12. He had [...] Received from [facility] Overall Financial Resource Strain (CARDIA) Difficulty of Paying Living Expenses: Somewhat hard Food Insecurity: No Food Insecurity (12/07/2024) Received from [facility] Hunger Vital Sign Worried About Running Out of Food in the Last Year: Never true Ran Out of Food in the Last Year: Never true Recent Concern: Food Insecurity - Food Insecurity Present (10/11/2024) Received from [facility] Hunger Vital Sign Worried About Running Out of Food in the Last Year: Sometimes true Ran Out of Food in the Last Year: Sometimes true Transportation Needs: No Transportation Needs (12/07/2024) Received from [facility] PRAPARE - Transportation Lack of Transportation (Medical): No Lack of Transportation (Non-Medical): No Physical Activity: Not on file Stress: Not on file Social Connections: Not on file Intimate Partner Violence: Not At Risk (12/07/2024) Received from [facility] Humiliation, Afraid, Rape, and Kick questionnaire Fear of Current or Ex-Partner: No Emotionally Abused: No Physically Abused: No Sexually Abused: No Housing Stability: High Risk (12/07/2024) Received from [facility] Housing Stability Vital Sign Unable to Pay [...] Normal [] Scar/Lesion/Mass Inspection of teeth/lips/gums Dentition: []Andreafski Teeth []Dentures Lips/Gums: [x]Intact []Lesion Present Mucosa: [x][place] []Moist []Dry Neck: External Appearance Overall Appearance: [...] 17.3* ABGs: No results for input(s): "PHART", "FBW6ZEW", "PO2ART", "ZDS8JRW", "SO2ART", "Q5SBNNSH" in the last 72 hours. Lactic Acid: [...] Patient stable for GMF, awaiting transfer to [facility] Re-check lactic acid, BMP to monitor hypercalcemia Recommend continuing broad spectrum Vancomycin and Zosyn, pending wound and blood cultures Recommending continuing current pain regimen Remainder per primary service GI Prophylaxis: N/A DVT Prophylaxis: Lovenox 40 q 24hr - creatinine clearance >30 BMI Classification: Body mass index is 22.19 kg/m . normal BMI 18.5-24.9 Disposition: Stable for GMF, awaiting transfer to [facility] Cosigned by Noah Stewart DO at 12/23/2024 7:11 PM EDT Associated attestation - Noah Stewart DO - 12/23/2024 7:11 PM EDT I have personally performed a liwn-xx-dado diagnostic evaluation on this patient on date of service 12/23/24. History, labs, imaging studies, and electronic medical record have been reviewed by me. This note documented by the []Critical Care Fellow [x]rooming house operator []BRITTNEY reflects my history, exam, and medical [...] other team members and physicians, excluding procedures. [employer] Phone: 12-23-2024 Consult note Associated Order (s): [...] hip and hidradenitis suppurativa who presented to [facility] 12/22 from [facility] for increased drainage and malodor of L hip wound. He is awaiting transfer to [facility]. Of note, patient recently hospitalized at 12/07 - 12/17 and was discharged to [facility] on Augmentin through 01/12. He had [...] Received from [facility] Overall Financial Resource Strain (CARDIA) Difficulty of Paying Living Expenses: Somewhat hard Food Insecurity: No Food Insecurity (12/07/2024) Received from [facility] Hunger Vital Sign Worried About Running Out of Food in the Last Year: Never true Ran Out of Food in the Last Year: Never true Recent Concern: Food Insecurity - Food Insecurity Present (10/11/2024) Received from [facility] Hunger Vital Sign Worried About Running Out of Food in the Last Year: Sometimes true Ran Out of Food in the Last Year: Sometimes true Transportation Needs: No Transportation Needs (12/07/2024) Received from [facility] PRAPARE - Transportation Lack of Transportation (Medical): No Lack of Transportation (Non-Medical): No Physical Activity: Not on file Stress: Not on file Social Connections: Not on file Intimate Partner Violence: Not At Risk (12/07/2024) Received from [facility] Humiliation, Afraid, Rape, and Kick questionnaire Fear of Current or Ex-Partner: No Emotionally Abused: No Physically Abused: No Sexually Abused: No Housing Stability: High Risk (12/07/2024) Received from [facility] Housing Stability Vital Sign Unable to Pay [...] Normal [] Scar/Lesion/Mass Inspection of teeth/lips/gums Dentition: []Andreafski Teeth []Dentures Lips/Gums: [x]Intact []Lesion Present Mucosa: [x][place] []Moist []Dry Neck: External Appearance Overall Appearance: [...] 17.3* ABGs: No results for input(s): "PHART", "KFD7KFQ", "PO2ART", "LAR5YLP", "SO2ART", "E2RSDKXK" in the last 72 hours. Lactic Acid: [...] Patient stable for GMF, awaiting transfer to [facility] Re-check lactic acid, BMP to monitor hypercalcemia Recommend continuing broad spectrum Vancomycin and Zosyn, pending wound and blood cultures Recommending continuing current pain regimen Remainder per primary service GI Prophylaxis: N/A DVT Prophylaxis: Lovenox 40 q 24hr - creatinine clearance >30 BMI Classification: Body mass index is 22.19 kg/m . normal BMI 18.5-24.9 Disposition: Stable for GMF, awaiting transfer to [facility] Cosigned by Noah Stewart DO at 12/23/2024 7:11 PM EDT Associated attestation - Noah Stewart DO - 12/23/2024 7:11 PM EDT I have personally performed a nwxk-xz-xmjn diagnostic evaluation on this patient on date of service 12/23/24. History, labs, imaging studies, and electronic medical record have been reviewed by me. This note documented by the []Critical Care Fellow [x]rooming house operator []BRITTNEY reflects my history, exam, and medical [...] physicians, excluding procedures. documented in this encounter [facility] 12-23-2024 Emergency department Note RN informed patient admitting team of patient b/p . Pt on the monitor. Pt declined feeling dizzy or nauseous. Pt want pants, RN is looking for pants [facility] 12-23-2024 Emergency department Note RN informed patient admitting team of patient b/p . Pt on the monitor. Pt declined feeling dizzy or nauseous. Pt want pants RN is looking for pants Pt moved into inpatient bed. Pt on the monitor. Report given to Sunni RN Received report from [facility] Levo drip [...] Infection Pt arrives by life care from [facility] in ulm, per life care pt has had wound [...] his facility about a week ago from [facility] as he has SCC treating with [...] typical urinary output. History provided by: Patient gut cleaner used: No INFORMED PHOTO CONSENT: The patient has given verbal consent to have photos taken of left hip and inserted into their provider note as a part of their permanent medical record for purposes of documentation, treatment management, and/or medical review. All images taken were transmitted and stored on a secure [employer] Site located within a Media Folder Tab by a registered [employer] Application Device. See "Media" tab in Epic [...] HENT: Head: Normocephalic and atraumatic. Mouth/Throat: Lips: [place]. Mouth: Mucous membranes are moist. Cardiovascular: Rate [...] Procedure Abnormality Status --------- ------ Culture, Aerobic Bacteri...[[id number]] In process Anaerobic culture[[id number]] In process Please view results for these tests on the individual orders. CULTURE, AEROBIC BACTERIA WITH GRAM STAIN CULTURE ANAEROBIC COMPLETE URINALYSIS WITH REFLEX TO CULTURE Narrative: The following orders were created for panel order Urinalysis Complete with reflex to Culture. Procedure Abnormality Status --------- ------ Complete Urinalysis[[id number]] Normal Final result Please view results for these tests on the individual orders. Encounter Date: 12/06/24 ECG 12 lead Result Value Heart Rate 58 QRSD Interval 94 QT Interval 397 QTC Interval 390 P [place] 44 QRS [place] 55 T Wave [place] 56 [place] Interval 142 Impression Sinus bradycardia Electronically Signed On 12-06-2024 11:47:13 EDT by Fer Hollins ED Course & MDM Medical Decision Making Presents to the emergency department for a worsening malodorous wound to his left hip that was recently treated at [facility]. He is failing outpatient antibiotic [...] by Dr. Mcfarlane for the MICU at [facility] [MJ] ED Course User Index [MJ] Levi [...] made to ensure accuracy; however, inadvertent computerized sales route driver helper errors may be present.* TRAVIS Verduzco 12/22/24 RANDALL Verduzco CNP 12/22/24 243 Cosigned by Levi Mack DO at 12/22/2024 6:43 PM EDT Emergency Department Encounter [facility] EMERGENCY DEPT Patient: [...] toward the left greater trochanter. He is group home had reported that he is currently on chemotherapy. He was hospitalized recently due to concerns of an abscess and had this managed by general surgery at [facility]. He receives most of his care for hidradenitis suppurativa at and is requesting to be transferred given that they are familiar with his care. Believe this is appropriate due to patient will require further evaluation by the surgery and primary team taking care of his chronic wound. We will continue IV antibiotics and IV pressors and transfer patient to [facility] for management. Diagnostics interpreted by me: I personally discussed the patient's management with other clinicians: Critical Care note: This patient was unstable and required constant supervision by me for 35 minutes during their visit. The patient's condition requiring intervention included: sepsis evaluation, multiple reassessments, vasopressors. This critical care time did not include time for procedures or time spent by the physicians medical receptionist medical assistant if they were caring for this [...] signout who has been awaiting transfer to [facility] for septic shock in the setting of a left buttock wound requiring Levophed. I reviewed his labs and his medications and unfortunately has not been dosed with Zosyn since 1 PM. I reordered that and also timed for every 6 hours. He has been boarding in our emergency department for 16 hours now. We reached out to [facility] and they stated that there would not [...] fluid responsive. I reached back out to [facility] to get him accepted to a regular nursing floor. I spoke with Dr Benitez at [facility] who accepted the patient to the regular nursing floor but they will still not have beds until most likely later this afternoon so will plan to admit him here medically so that the can be under the supervision and care of a hospitalist. Admitted in stable condition. Mary Calvert MD 12/23/24 0629 documented in this encounter [facility] 12-23-2024 Emergency department Note Pt moved into inpatient bed. Pt on the monitor. [facility] 12-23-2024 Emergency department Note Report given to Sunni [facility]ON [facility] 12-23-2024 History and physical note Attending [...] Required levophed but is now off of. [facility] accepted him but waiting on bed until later this afternoon. He was boarded in our ED for 16hrs. Seen at bedside. Wounds are foul smelling. Pt states he was dropped off here from [facility] as it was the closest [...] Received from [facility] Overall Financial Resource Strain (CARDIA) Difficulty of Paying Living Expenses: Somewhat hard Food Insecurity: No Food Insecurity (12/07/2024) Received from [facility] Hunger Vital Sign Worried About Running Out of Food in the Last Year: Never true Ran Out of Food in the Last Year: Never true Recent Concern: Food Insecurity - Food Insecurity Present (10/11/2024) Received from [facility] Hunger Vital Sign Worried About Running Out of Food in the Last Year: Sometimes true Ran Out of Food in the Last Year: Sometimes true Transportation Needs: No Transportation Needs (12/07/2024) Received from [facility] PRAPARE - Transportation Lack of Transportation (Medical): No Lack of Transportation (Non-Medical): No Physical Activity: Not on file Stress: Not on file Social Connections: Not on file Intimate Partner Violence: Not At Risk (12/07/2024) Received from [facility] Humiliation, Afraid, Rape, and Kick questionnaire Fear of Current or Ex-Partner: No Emotionally Abused: No Physically Abused: No Sexually Abused: No Housing Stability: High Risk (12/07/2024) Received from [facility] Housing Stability Vital Sign Unable to Pay [...] transfer to when bed available were his piano teacher, 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 Holding off [...] Date - 12/23 - [place] - [place] - Pending the following - bed available [...] - DO NOT do CPR, intubation] [_] [DNR-HOG TENDER - Comfort care only] [_] DNR form [...] Clarita Hay DO Division of Hospitalist Medicine [facility] [place] Work Phone: 12-23-2024 Note Attending History an [...] Required levophed but is now off of. [facility] accepted him but waiting on bed until later this afternoon. He was boarded in our ED for 16hrs. Seen at bedside. Wounds are foul smelling. Pt states he was dropped off here from [facility] as it was the closest [...] Received from [facility] Overall Financial Resource Strain (CARDIA) Difficulty of Paying Living Expenses: Somewhat hard Food Insecurity: No Food Insecurity (12/07/2024) Received from [facility] Hunger Vital Sign Worried About Running Out of Food in the Last Year: Never true Ran Out of Food in the Last Year: Never true Recent Concern: Food Insecurity - Food Insecurity Present (10/11/2024) Received from [facility] Hunger Vital Sign Worried About Running Out of Food in the Last Year: Sometimes true Ran Out of Food in the Last Year: Sometimes true Transportation Needs: No Transportation Needs (12/07/2024) Received from [facility] PRAPARE - Transportation Lack of Transportation (Medical): No Lack of Transportation (Non-Medical): No Physical Activity: Not on file Stress: Not on file Social Connections: Not on file Intimate Partner Violence: Not At Risk (12/07/2024) Received from [facility] Humiliation, Afraid, Rape, and Kick questionnaire Fear of Current or Ex-Partner: No Emotionally Abused: No Physically Abused: No Sexually Abused: No Housing Stability: High Risk (12/07/2024) Received from [facility] Housing Stability Vital Sign Unable to Pay [...] Negative for fever, (more content not included)... [facility] 12-23-2024 History and physical note [...] Required levophed but is now off of. [facility] accepted him but waiting on bed until later this afternoon. He was boarded in our ED for 16hrs. Seen at bedside. Wounds are foul smelling. Pt states he was dropped off here from [facility] as it was the closest [...] Received from [facility] Overall Financial Resource Strain (CARDIA) Difficulty of Paying Living Expenses: Somewhat hard Food Insecurity: No Food Insecurity (12/07/2024) Received from [facility] Hunger Vital Sign Worried About Running Out of Food in the Last Year: Never true Ran Out of Food in the Last Year: Never true Recent Concern: Food Insecurity - Food Insecurity Present (10/11/2024) Received from [facility] Hunger Vital Sign Worried About Running Out of Food in the Last Year: Sometimes true Ran Out of Food in the Last Year: Sometimes true Transportation Needs: No Transportation Needs (12/07/2024) Received from [facility] PRAPARE - Transportation Lack of Transportation (Medical): No Lack of Transportation (Non-Medical): No Physical Activity: Not on file Stress: Not on file Social Connections: Not on file Intimate Partner Violence: Not At Risk (12/07/2024) Received from [facility] Humiliation, Afraid, Rape, and Kick questionnaire Fear of Current or Ex-Partner: No Emotionally Abused: No Physically Abused: No Sexually Abused: No Housing Stability: High Risk (12/07/2024) Received from [facility] Housing Stability Vital Sign Unable to Pay [...] transfer to when bed available were his piano teacher, 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 Holding off [...] Extended Emergency Contact Information Primary Emergency Contact: BessieOmkar Mobile Relation: Brother [employer] Kevan La : 1975 Primary Care Physician: No primary care provider on file. The patient and/or family/surrogate voluntarily agreed to participate in ACP services. Patient s cognitive capacity: intact Code Status: [x_] [FULL CODE - Continue all advanced life support: CPR,intubation,invasive procedures] [_] [DNR-CCA - DO NOT do CPR, intubation] [_] [DNR-HOG TENDER - Comfort care only] [_] DNR form [...] Clarita Hay DO Division of Hospitalist Medicine [facility] documented in this encounter [facility] 12-23-2024 Emergency department Note Received report from Parish NEWTON [facility] 12-23-2024 Emergency department Note Levo drip turned off. BP 102/64. [facility] 12-22-2024 Emergency department Note Levo titrated to 2mcg/min. Patient BP remains stable. [facility] 12-22-2024 Emergency department Note Levo titrated to 4mcg/min. BP remains stable. Patient asymptomatic. [facility] 12-22-2024 Emergency department Note Levo titrated to 6mcg/min. BP remains stable. Patient asymptomatic. [facility] 12-22-2024 Emergency department Note Report given to Parish NEWTON [facility] 12-22-2024 Emergency department Note Dressing change completed with ABD pads, 2x2s and tape. Pt repostioned and saturated chucks removed [facility] 12-22-2024 Emergency department Note Messaged pharmacy regarding missing vancomycin dose [facility] 12-22-2024 Emergency department Note Report given to Mary NEWTON for lunch coverage T [facility] 12-22-2024 Physician Emergency department Note Images from the original note were not included. HPI Chief Complaint Patient presents with Wound Infection Pt arrives by life [facility] pt has had [...] his facility about a week ago from [facility] as he has SCC treating with [...] typical urinary output. History provided by: Patient gut cleaner used: No INFORMED PHOTO CONSENT: The patient has given verbal consent to have photos taken of left hip and inserted into their provider note as a part of their permanent medical record for purposes of documentation, treatment management, and/or medical review. All images taken were transmitted and stored on a secure [employer] Ceramic Design Engineer Site located within a Media Folder Tab by a registered [employer] Mobile Application Device. See "Media" tab in [employer] or photo as below. Kofi Coma Scale [...] HENT: Head: Normocephalic and atraumatic. Mouth/Throat: Lips: [place]. Mouth: Mucous membranes are moist. Cardiovascular: Rate [...] Procedure Abnormality Status --------- ------ Culture, Aerobic Bacteri...[[id number]] In process Anaerobic culture[[id number]] In process Please view results for these tests on the individual orders. CULTURE, AEROBIC BACTERIA WITH GRAM STAIN CULTURE ANAEROBIC COMPLETE URINALYSIS WITH REFLEX TO CULTURE Narrative: The following orders were created for panel order Urinalysis Complete with reflex to Culture. Procedure Abnormality Status --------- ------ Complete Urinalysis[[id number]] Normal Final result Please view results for these tests on the individual orders. Encounter Date: 12/06/24 ECG 12 lead Result Value Heart Rate 58 QRSD Interval 94 QT Interval 397 QTC Interval 390 P [place] 44 QRS [place] 55 T Wave [place] 56 [place] Interval 142 Impression Sinus bradycardia Electronically Signed On 12-06-2024 11:47:13 EDT by Fer Hollins ED Course & MDM Medical Decision Making Presents to the emergency department for a worsening malodorous wound to his left hip that was recently treated at [facility]. He is failing outpatient antibiotic [...] by Dr. Mcfarlane for the MICU at [facility] [MJ] ED Course User Index [MJ] Levi Mack DO [NA] Ronna Leon, MANAGER LIFE INSURANCE - MICROMATIC HONE OPERATOR Diagnoses as of 12/22/241822 Sepsis, due to [...] made to ensure accuracy; however, inadvertent computerized sales route driver helper errors may be present.* TRAVIS Verduzco 12/22/24 RANDALL Verduzco CNP 12/22/24 1759 Cosigned by Levi Mack DO at 12/22/2024 6:43 PM EDT [facility] 12-22-2024 Physician Emergency department Note Emergency [...] toward the left greater trochanter. He is group home had reported that he is currently on chemotherapy. He was hospitalized recently due to concerns of an abscess and had this managed by general surgery at [facility]. He receives most of his care for hidradenitis suppurativa at and is requesting to be transferred given that they are familiar with his care. Believe this is appropriate due to patient will require further evaluation by the surgery and primary team taking care of his chronic wound. We will continue IV antibiotics and IV pressors and transfer patient to [facility] for management. Diagnostics interpreted by me: I personally discussed the patient's management with other clinicians: Critical Care note: This patient was unstable and required constant supervision by me for 35 minutes during their visit. The patient's condition requiring intervention included: sepsis evaluation, multiple reassessments, vasopressors. This critical care time did not include time for procedures or time spent by the physicians medical receptionist medical assistant if they were caring for this [...] provider for clarification.) Levi Mack DO Acute [facility] Levi Mack DO 12/22/24 1730 Levi Mack DO 12/22/24 1755 [employer] Phone: 12-22-2024 Physician Emergency department Note Pt signed out to me by Dr. Mack. Pt is awaiting transfer to for septic shock in setting of left buttock wound. Mani Dc DO 12/23/24 0115 [employer] Phone: 12-22-2024 Physician Emergency department Note I received this patient in signout who has been awaiting transfer to [facility] for septic shock in the setting of a left buttock wound requiring Levophed. I reviewed his labs and his medications and unfortunately has not been dosed with Zosyn since 1 PM. I reordered that and also timed for every 6 hours. He has been boarding in our emergency department for 16 hours now. We reached out to [facility] and they stated that there would not [...] fluid responsive. I reached back out to [facility] to get him accepted to a regular nursing floor. I spoke with Dr Benitez at [facility] who accepted the patient to the regular nursing floor but they will still not have beds until most likely later this afternoon so will plan to admit him here medically so that the can be under the supervision and care of a hospitalist. Admitted in stable condition. Mary Calvert MD 12/23/24 0629 [facility] 12-22-2024 Progress note Formatting of t his note might be different from the original. Culture reviewed. Awaiting sensitivity results [employer] Work Phone: 12-20-2024 History of Present illness [...] clinical picture. 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 [employer] documented in this encounter [facility] Work Phone: 12-19-2024 History of Present illness Narrative 12/09/24 1000 Discharge Planning Living Arrangements Other (Comment);Alone (admitted from [facility]) Support Systems Family members;Other (Comment) (SNF staff, SNF SW) Assistance Needed skilled, PT/OT Type of Residence longterm facility Do you have animals or pets at home? No Home or Post Acute Services Post acute facilities (Rehab/SNF/etc) (return to [facility]) Type of Post Acute Facility Services longterm Expected Discharge Disposition SNF Does the patient need discharge transport arranged? Yes RoundTrip coordination needed? Yes Has discharge transport been arranged? No Patient Choice Provider Choice list and [facility] website (https://medicare.gov/care-compar e#search) for post-acute Quality and Resource Measure Data were provided and reviewed with: Patient Patient / Family choosing to utilize agency / facility established prior to hospitalization Yes SW met with pt to introduce role and discuss discharge planning. Pt admitted from [facility]; pt reports that he's been there on and off since September. Pt confirmed demographic and insurance details. SW contact details written on the whiteboard in pt room. Return referral sent to [facility]. SW will follow. Fer Barron Hidalgo [facility] 12/09/2024 1040 Per [facility], pt's current auth expires on 12/11. Further discharge planning pending updates from the care team. SW will follow. Fer Ruizann [facility] 12/11/2024 1030 Pt auth for [facility] expires today. Clinical updates sent to facility. Further discharge planning pending updates from the care team. SW will follow. Fer Hidalgo [facility] 12/16/2024 0955 Once PT and OT see pt for updated notes, [facility] will initiate precert. SW will follow. Fer Barron Hidalgo [facility] 12/17/2024 1030 PT and OT saw pt this morning. Clinicals and therapy notes sent to facility. Facility was notified to initiate precert for pt to return. Care team notified SW that pt reported he doesn't want to return to [facility]. SANTO met with pt to check in and he reports that he has been telling everyone for days that he would prefer not to return to [facility]. SW offered to give pt a SNF [...] for discharge. SW will follow. Fer Hidalgo [facility] 12/17/2024 1120 Per facility: "Auth Submitted - Pending Reference # [id number]" Liaison is confirming that there are no barriers to providing transport for pt's oncology appt on Monday. SW will follow. Fer Hidalgo [facility] 12/18/2024 1245 [facility] reports that pt insurance is asking for PT note and a wound care note. SW let the facility note that yesterday's PT note was sent to them yesterday and that a request would be put in for a new wound care note. SW will follow. Fer Hidalgo [facility] 12/18/2024 1540 Wound care note sent to facility via [employer]. SW will follow. Fer Hidalgo [facility] 12/19/2024 0920 Per facility: "Auth has been approved - [id number] - 4.3. to 4" Care team notified. SW met with pt and let him know that he will discharge today. Transport requested in RoundTrip for 1100. SW asked facility to confirm that his transport for his oncology appt is set up. SW will follow. Fer Hidalgo [facility] 12/19/2024 1000 Transport confirmed for 1300 with [facility]. Care team, pt, and facility notified. Once received, number for report will be sent to bedside nurse. Pt requested to speak to a member of the care team; care team notified. SW will follow. Fer Hidalgo [facility] 12/19/2024 1015 Number for report is [phone] and was sent to bedside nurse. SW will follow. Fer Hidalgo [facility] Kevan La is a 49 y.o. [...] medications to patient prior to discharge via [facility] pharmacy. Prescriptions will need to be sent 48-72 hours prior to discharge so that a prior authorization can be completed. Discharge date: unknown pending acute issues Patient has an appointment with Outpatient [facility] 12/30/24 SIGNATURE: TRAVIS Rodas PAGER/CONTACT: Contact information: [facility] Monday-Monday 8 AM-5 PM [employer] or pager [phone]. After hours and weekends: pager [phone] SUBJECTIVE: Interval Events: Pt reports pain is [...] UNK primary Family: Supportive though live in [place] Performance status: Moderate limitations due to pain Joys/meaning/strength: Family and [facility] Understanding of health: 12/08: Demonstrates good prognostic [...] Surrogate decision maker is brother Omkar La [phone] Signature and billing: Medical complexity was high [...] of shared electronic medical record/secure chat/email or [id number]. We will continue to follow Please contact us for additional questions or concerns. SIGNATURE: Lynette Segovia APRN-MICROMATIC HONE OPERATOR PAGER/CONTACT: Contact information: [facility] Monday-Monday 8 AM-5 PM [employer] Secure chat or pager [phone]. After hours and weekends: pager [phone] 12/09/24 1000 Discharge Planning Living Arrangements Other (Comment);Alone (admitted from [facility]) Support Systems Family members;Other (Comment) (SNF staff, SNF SW) Assistance Needed skilled, PT/OT Type of Residence longterm facility Do you have animals or pets at home? No Home or Post Acute Services Post acute facilities (Rehab/SNF/etc) (return to [facility]) Type of Post Acute Facility Services longterm Expected Discharge Disposition SNF Does the patient need discharge transport arranged? Yes RoundTrip coordination needed? Yes Has discharge transport been arranged? No Patient Choice Provider Choice list and [facility] website (https://medicare.gov/care-compar e#search) for post-acute Quality and Resource Measure Data were provided and reviewed with: Patient Patient / Family choosing to utilize agency / facility established prior to hospitalization Yes SW met with pt to introduce role and discuss discharge planning. Pt admitted from [facility]; pt reports that he's been there on and off since September. Pt confirmed demographic and insurance details. SW contact details written on the whiteboard in pt room. Return referral sent to [facility]. SW will follow. Fer Hidalgo [facility] 12/09/2024 1040 [facility] current [facility] expires on 12/11. Further discharge planning pending updates from the care team. SW will follow. Fer Hidalgo [facility] 12/11/2024 1030 Pt auth for [facility] expires today. Clinical updates sent to facility. Further discharge planning pending updates from the care team. SW will follow. Fer Hidalgo [facility] 12/16/2024 0955 Once PT and OT see pt for updated notes, [facility] will initiate precert. SW will follow. Fer Hidalgo [facility] 12/17/2024 1030 PT and OT saw pt this morning. Clinicals and therapy notes sent to facility. Facility was notified to initiate precert for pt to return. Care team notified SW that pt reported he doesn't want to return to [facility]. SW met with pt to check in and he reports that he has been telling everyone for days that he would prefer not to return to [facility]. SW offered to give pt a SNF [...] for discharge. SW will follow. Fer Hidalgo [facility] 12/17/2024 1120 Per facility: "Auth Submitted - Pending Reference # [id number]" Liaison is confirming that there are no barriers to providing transport for pt's oncology appt on Monday. SW will follow. Fer Hidalgo [facility] 12/18/2024 1245 [facility] reports that pt insurance is asking for PT note and a wound care note. SW let the facility note that yesterday's PT note was sent to them yesterday and that a request would be put in for a new wound care note. SW will follow. Fer Hidalgo [facility] 12/18/2024 1540 Wound care note sent to facility via [employer]. SW will follow. Fer Hidalgo [facility] Images from the original note were not included. Internal Medicine Daily Progress Note Subjective Interval events: NAEO. Pain stable not requiring IV pain meds. No other concerns or complaints at this time. Objective Vitals: Visit Vitals BP 96/66 Pulse 70 Temp 36.5 C (97.7 F) (Temporal) Resp 16 Intake/Output Summary (Last 24 hours) at 12/18/2024 0785 Last data filed at 12/18/2024 0507 Gross [...] Signs/Symptoms:r/o any dysphagia. COMPARISON: None. ACCESSION NUMBER(S): [id number] ORDERING CLINICIAN: GIBSON MENDIOLA TECHNIQUE: MBSS completed. Informed verbal consent obtained prior to completion of exam. Trials of thin, nectar thick, puree, and regular solids given. Fluoroscopy time : 1.8 minutes. Total of 2800 images were provided for review. 100 mL barium contrast. LEASING PROPERTY MANAGER: Makayla Dunham Phone/Pager: [employer] SPEECH FINDINGS: Patient Name: Kevan La : 1975 Today's Date: 12/16/24 Start Time: 845 Stop Time: 915 Time Calculation (min): 30 min Modified Barium Swallow Study completed. Informed verbal consent obtained prior to completion of exam. Trials of thin liquid, mildly thick liquid, puree, and solids were given. LEASING PROPERTY MANAGER: MINDY Camp Contact info: [employer] Reason for Referral: C/f aspiration/oropharyngeal dysphagia Patient Hx: Kevan La is a 49 y.o. 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 LEASING PROPERTY MANAGER Frequency: 2x per week Duration: 1-2 [...] given on all accounts. Treatment Provided Today: LEASING PROPERTY MANAGER provided extensive education and training to [...] further evaluation by medical specialists, as applicable. LEASING PROPERTY MANAGER Impressions with Severity Rating: Pt presenting [...] obtained, suspect within normal limits for clearance LEASING PROPERTY MANAGER recommends cautious initiation of thin liquids and easy to chew diet. See additional PO intake guidelines outlined below. If pt demonstrates any change/decline in medical/mental/respiratory status please make NPO and alert LEASING PROPERTY MANAGER. Will continue to follow while in acute care setting to ensure diet tolerance and use of safe swallow guidelines. MD aware of recommendations Rosenbek's Penetration Aspiration Scale Thin Liquids: 3. PENETRATION with LOW ASPIRATION risk - contrast remains above vocal cords, visible residue Ludell Thick Liquids: 3. PENETRATION with LOW ASPIRATION [...] Dilan Hester. This study was interpreted at [facility], [place], [place]. MACRO: None Signed by: Jayson Abdi 12/16/2024 4:54 PM Dictation workstation: [id number] Oncology Hx Diagnosis: Squamous cell carcinoma of [...] their tolerance level. Patient agreed to advise certified pharmacy technician. The certified pharmacy technician counseled the patient on the risks of [...] Signs/Symptoms:r/o any dysphagia. COMPARISON: None. ACCESSION NUMBER(S): [id number] ORDERING CLINICIAN: GIBSON MENDIOLA TECHNIQUE: MBSS completed. Informed verbal consent obtained prior to completion of exam. Trials of thin, nectar thick, puree, and regular solids given. Fluoroscopy time : 1.8 minutes. Total of 2800 images were provided for review. 100 mL barium contrast. LEASING PROPERTY MANAGER: Makayla Dunham Phone/Pager: [employer] SPEECH FINDINGS: Patient Name: Kevan La : 1975 Today's Date: 12/16/24 Start Time: 845 Stop Time: 915 Time Calculation (min): 30 min Modified Barium Swallow Study completed. Informed verbal consent obtained prior to completion of exam. Trials of thin liquid, mildly thick liquid, puree, and solids were given. LEASING PROPERTY MANAGER: MINDY Camp Contact info: [employer] Reason for Referral: C/f aspiration/oropharyngeal dysphagia Patient Hx: Kevan La is a 49 y.o. 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 LEASING PROPERTY MANAGER Frequency: 2x per week Duration: 1-2 [...] given on all accounts. Treatment Provided Today: LEASING PROPERTY MANAGER provided extensive education and training to [...] further evaluation by medical specialists, as applicable. LEASING PROPERTY MANAGER Impressions with Severity Rating: Pt presenting [...] obtained, suspect within normal limits for clearance LEASING PROPERTY MANAGER recommends cautious initiation of thin liquids and easy to chew diet. See additional PO intake guidelines outlined below. If pt demonstrates any change/decline in medical/mental/respiratory status please make NPO and alert LEASING PROPERTY MANAGER. Will continue to follow while in acute care setting to ensure diet tolerance and use of safe swallow guidelines. MD aware of recommendations Rosenbek's Penetration Aspiration Scale Thin Liquids: 3. PENETRATION with LOW ASPIRATION risk - contrast remains above vocal cords, visible residue Ludell Thick Liquids: 3. PENETRATION with LOW ASPIRATION [...] Dilan Hester. This study was interpreted at [facility], [place], [place]. MACRO: None Signed by: Jayson Abdi 12/16/2024 4:54 PM Dictation workstation: [id number] ECG 12 Lead Result Date: 12/16/2024 Normal [...] 12/06/2024 and 11/19/2024 CT examinations. ACCESSION NUMBER(S): [id number] ORDERING CLINICIAN: GIBSON MENDIOLA TECHNIQUE: Multiplanar multisequence [...] Kong Armijo 12/12/2024 1:33 PM Dictation workstation: [id number] MR femur left wo IV contrast Result Date: 12/12/2024 Interpreted By: Kong Armijo, and Mason Montague STUDY: MRI of the left femur with and without contrast dated 12/10/2024. 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 History of chronic hidradenitis suppurativa. COMPARISON: Correlation is made with 12/06/2024 and 11/19/2024 CT examinations. ACCESSION NUMBER(S): [id number] ORDERING CLINICIAN: TOYA RUBIO TECHNIQUE: Multiplanar multisequence MRI of the left femur was performed with and without intravenous gadolinium based contrast. FINDINGS: No images were obtained as the patient was unable to cooperate for the exam. No images were obtained as the patient was unable to cooperate for the exam. MACRO: None Signed by: Kong Armijo 12/12/2024 1:18 PM Dictation workstation: [id number] CT pelvis w IV contrast Result Date: 12/06/2024 [facility] 1975 [id number] Exam Date/Time: 12/06/2024 12:46 Procedure: CT PELVIS [...] carcinoma. COMPARISON: CT pelvis 11/08/2024. ACCESSION NUMBER(S): [id number] ORDERING CLINICIAN: CLAUDIO PLUNKETT TECHNIQUE: CT of the chest, abdomen, and pelvis was performed. Contiguous axial images were obtained at 3 mm slice thickness through the chest, abdomen and pelvis. Coronal and sagittal reconstructions at 3 mm slice thickness were performed. 90 ML of Omnipaque 350 was administered intravenously without immediate complication. FINDINGS: CHEST: LUNG/PLEURA/LARGE AIRWAYS: Dize-ds-cxffjxgv upper lobe predominant centrilobular and paraseptal emphysema. [...] Attention on follow-up examinations is recommended. 5. Mslm-cczaxmh-kdho-right skin thickening extending from the sacral region to the proximal thigh, in keeping with patient's background of hydradenitis suppurativa. 6. Kjhm-qj-asuswnxx upper lobe predominant centrilobular and paraseptal emphysema. I personally reviewed the images/study and I agree with the findings as stated by Elenita Munroe MD (PGY-2). This study was interpreted at [facility], [place], [place]. MACRO: None Signed by: Ravin Hyatt 11/19/2024 4:54 PM Dictation workstation: [id number] Assessment/Plan Assessment & Plan Gluteal abscess [facility] Integrative Medicine Symptom Management program offers multi-disciplinary [...] (available on ). Music therapy, art therapy, bobbin dumper and pet therapy offered to pt, pt declined; pt stated the brineyard supervisor has been following. Left gluteal pain: pain related to malignancy, lesions Pain is well-controlled Defer to supportive oncology team for adequate PO/IV pain regimen Recommend integrative therapy modalities as pt allows: -Acupuncture; provided pt education today. Pt declined services, requesting follow up when next available -Acupressure, gua sha -Gentle bodywork and stretching as tolerated -Art therapy -Music therapy -Parking Cashier -Pet therapy Altered Mood: Anxiety and/or depression r/t health concerns History of anxiety/depression -Recommend integrative medicine modalities as listed above Mindfulness Brittney: AMDtx, Calm, Headspace, Insight Timer Guided Imagery Meditation (15 min in the morning) - consider mindfulness (Mindfulness based Stress Reduction) Apps such as CALM or Headspace Deep breathing: Alternate nostril breathing and Deep abdominal breathing (5 min) in the morning [facility] - Guided Meditation Thank you for allowing us to participate in the care of this patient. Integrative Medicine Team will continue to follow as needed. Please contact team with any questions or concerns. Cristiana Evans APRN-MICROMATIC HONE OPERATOR (available by [employer]) [facility] Inpatient Integrative Medicine I spent 45 minutes in the care of this patient which included chart review, interviewing patient/family, discussion with primary team, coordination of care, and documentation. Medical Decision Making was high level due to high complexity of problems, extensive data review, and high risk of management/treatment. 12/09/24 1000 Discharge Planning Living Arrangements Other (Comment);Alone (admitted from [facility]) Support Systems Family members;Other (Comment) (SNF staff, SNF SW) Assistance Needed skilled, PT/OT Type of Residence longterm facility Do you have animals or pets at home? No Home or Post Acute Services Post acute facilities (Rehab/SNF/etc) (return to [facility]) Type of Post Acute Facility Services longterm Expected Discharge Disposition SNF Does the patient need discharge transport arranged? Yes RoundTrip coordination needed? Yes Has discharge transport been arranged? No Patient Choice Provider Choice list and [facility] website (https://medicare.gov/care-compar e#search) for post-acute Quality and Resource Measure Data were provided and reviewed with: Patient Patient / Family choosing to utilize agency / facility established prior to hospitalization Yes SW met with pt to introduce role and discuss discharge planning. Pt admitted from [facility]; pt reports that he's been there on and off since September. Pt confirmed demographic and insurance details. SW contact details written on the whiteboard in pt room. Return referral sent to [facility]. SW will follow. Fer Hidalgo [facility] 12/09/2024 1040 Per [facility], pt's current auth expires on 12/11. Further discharge planning pending updates from the care team. SW will follow. Fer Hidalgo [facility] 12/11/2024 1030 Pt auth for [facility] expires today. Clinical updates sent to facility. Further discharge planning pending updates from the care team. SW will follow. Fer Hidalgo [facility] 12/16/2024 0955 Once PT and OT see pt for updated notes, [facility] will initiate precert. SW will follow. Fer Hidalgo [facility] 12/17/2024 1030 PT and OT saw pt this morning. Clinicals and therapy notes sent to facility. Facility was notified to initiate precert for pt to return. Care team notified SW that pt reported he doesn't want to return to [facility]. SW met with pt to check in and he reports that he has been telling everyone for days that he would prefer not to return to [facility]. SW offered to give pt a SNF [...] for discharge. SW will follow. Fer Hidalgo [facility] 12/17/2024 1120 Per facility: "Auth Submitted - Pending Reference # [id number]" Liaison is confirming that there are no barriers to providing transport for pt's oncology appt on Monday. SW will follow. Fer Hidalgo [facility] AGRICULTURAL ECONOMICS PROFESSOR Physical Therapy Treatment Patient Name: Kevan La Today's Date: 12/17/2024 Room: [address] [place] [address] Time Calculation Start Time: 938 Stop Time: 1001 Time Calculation (min): 23 [...] Decreased tolerance for upright activites Outcome Measures: [facility] Basic Mobility Turning from your back [...] Kevan La : 1975 Date: 12/17/24 Room: [address] [place] [address] Time Calculation Start Time: 0851 Stop Time: [...] Comments: BUE WFL via ADLs Outcome Measures: [facility] Daily Activity Putting on and taking [...] 12/17/24 at 10:18 AM Manuela Elmore OTR/L [phone] Images from the original note were not [...] Signs/Symptoms:r/o any dysphagia. COMPARISON: None. ACCESSION NUMBER(S): [id number] ORDERING CLINICIAN: GIBSON MENDIOLA TECHNIQUE: MBSS completed. Informed verbal consent obtained prior to completion of exam. Trials of thin, nectar thick, puree, and regular solids given. Fluoroscopy time : 1.8 minutes. Total of 2800 images were provided for review. 100 mL barium contrast. LEASING PROPERTY MANAGER: Makayla Dunham Phone/Pager: [phone] Chat SPEECH FINDINGS: Patient Name: Kevan La : 1975 Today's Date: 12/16/24 Start Time: 845 Stop Time: 915 Time Calculation (min): 30 min Modified Barium Swallow Study completed. Informed verbal consent obtained prior to completion of exam. Trials of thin liquid, mildly thick liquid, puree, and solids were given. LEASING PROPERTY MANAGER: MINDY Camp Contact info: [employer] Reason for Referral: C/f aspiration/oropharyngeal dysphagia Patient Hx: Kevan La is a 49 y.o. 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 LEASING PROPERTY MANAGER Frequency: 2x per week Duration: 1-2 [...] given on all accounts. Treatment Provided Today: LEASING PROPERTY MANAGER provided extensive education and training to [...] further evaluation by medical specialists, as applicable. LEASING PROPERTY MANAGER Impressions with Severity Rating: Pt presenting [...] obtained, suspect within normal limits for clearance LEASING PROPERTY MANAGER recommends cautious initiation of thin liquids and easy to chew diet. See additional PO intake guidelines outlined below. If pt demonstrates any change/decline in medical/mental/respiratory status please make NPO and alert LEASING PROPERTY MANAGER. Will continue to follow while in acute care setting to ensure diet tolerance and use of safe swallow guidelines. aware of recommendations Rosenирина's Penetration Aspiration Scale Thin Liquids: 3. PENETRATION with LOW ASPIRATION risk - contrast remains above vocal cords, visible residue Ludell Thick Liquids: 3. PENETRATION with LOW ASPIRATION [...] Dilan Hester. This study was interpreted at [place], [place]. MACRO: None Signed by: Jayson Abdi 12/16/2024 4:54 PM Dictation workstation: [id number] Oncology Hx Diagnosis: Squamous cell carcinoma of [...] Session Start Time: 1345 Session End Time: 1431 Intervention Delivery: In-person [...] Communication Note Patient Name: Kevan La Department: [facility] Room: [address] [place] [address] Today's Date: 12/16/2024 Discipline: Physical Therapy PT Missed Visit: Yes Missed Visit Reason: Missed Visit Reason: Patient sleeping (attempted twice and pt sleeping . would not wake up to name . Will reattempt as schedule permits.) Missed Time: Attempt Comment: Occupational Therapy Therapy Communication Note Patient Name: Kevan La Department: [facility] Room: [address] [place] [address] Today's Date: 12/16/2024 Discipline: Occupational Therapy OT Missed Visit: Yes Missed Visit Reason: Patient sleeping (Attempt 2x this AM; pt in sound sleep/declines OT this AM; will reattempt as schedule permits) Missed Time: Attempt Janny Andres (OTR/L, OTD) Inpatient Occupational Therapist Rehab Office: [phone] 12/09/24 1000 Discharge Planning Living Arrangements Other (Comment);Alone (admitted from [facility]) Support Systems Family members;Other (Comment) (SNF staff, SNF SW) Assistance Needed skilled, PT/OT Type of Residence longterm facility Do you have animals or pets at home? No Home or Post Acute Services Post acute facilities (Rehab/SNF/etc) (return to [facility]) Type of Post Acute Facility Services longterm Expected Discharge Disposition SNF Does the patient need discharge transport arranged? Yes RoundTrip coordination needed? Yes Has discharge transport been arranged? No Patient Choice Provider Choice list and [facility] website (https://medicare.gov/care-compar e#search) for post-acute Quality and Resource Measure Data were provided and reviewed with: Patient Patient / Family choosing to utilize agency / facility established prior to hospitalization Yes SW met with pt to introduce role and discuss discharge planning. Pt admitted from [facility]; pt reports that he's been there on and off since September. Pt confirmed demographic and insurance details. SW contact details written on the whiteboard in pt room. Return referral sent to [facility]. SW will follow. Fer Hidalgo [facility] 12/09/2024 1040 Per [facility], pt's current auth expires on 12/11. Further discharge planning pending updates from the care team. SW will follow. Fer Hidalgo [facility] 12/11/2024 1030 Pt auth for [facility] expires today. Clinical updates sent to facility. Further discharge planning pending updates from the care team. SW will follow. Fer Hidalgo [facility] 12/16/2024 0955 Once PT and OT see pt for updated notes, [facility] will initiate precert. SW will follow. Fer Hidalgo [facility] SUPPORTIVE AND PALLIATIVE ONCOLOGY INPATIENT FOLLOW-UP SERVICE DATE: 12/16/24 Updates and Recommendations (12/16/24): Change gabapentin 300mg PO BID Continue scheduled methadone 10mg [id number] 12/12/24, eligible for increase 12/17/24 Discontinue bisacodyl PRN Start scheduled bisacodyl 10mg IL once daily Consider one time enemas as [...] 2mg PO TID Continue scheduled methadone 10mg [id number] 12/12/24, eligible for increase 12/17/24 Continue oxycodone [...] Discontinue bisacodyl PRN Start scheduled bisacodyl 10mg IL once daily Consider one time enemas as needed, per primary discretion [effective last admission at resolving constipation] Goal to have BM without straining q48-72h, adjust regimen as needed Encourage mobility as tolerated, PT/OT following Disposition: Please start the process of having prior authorization with meds to beds deliver medications to patient prior to discharge via [facility] pharmacy. Prescriptions will need to be sent 48-72 hours prior to discharge so that a prior authorization can be completed. Discharge date pending resolution of acute hospital issues. Patient has an appointment with outpatient Supportive Oncology with Astrid Hawley CNP, on 12/30/24. SIGNATURE: TRAVIS Huizar PAGER/CONTACT: Contact information: Supportive and Palliative Oncology Monday-Monday 8 AM-5 PM [employer] Secure chat or pager [phone]. After hours and weekends: pager [phone] == SUBJECTIVE: Pain Assessment: Location: Left gluteus, LLE Duration: Constant Characteristics: Ratin/10, "it's alright" Descriptors: Throbbing, sharp, and burning Aggravating: Movement, pressure Relieving: Analgesics, positioning, and modifying activity Interference with Function: Somewhat Opioid Requirements Past 24h opioid requirements: (12/15-12/16, 4563-4502) methadone 10mg x 3 = 30mg oxycodone [...] of Care/Advance Care Planning: (Per Emile Segovia, MICROMATIC HONE OPERATOR's, note on 12/08/24) Patient's current clinical condition, including diagnosis, prognosis, and management plan, and goals of care were discussed. Life limiting disease: SCC of UNK primary Family: Supportive though live in [place] Performance status: Moderate limitations due to pain Joys/meaning/strength: Family and [facility] Understanding of health: Demonstrates good prognostic understanding [...] Decision maker: Surrogate decision maker is brotherOmkar ([phone]) == Signature and billing: Medical complexity was [...] of shared electronic medical record/secure chat/email or [id number]. We will continue to follow. Please contact us for additional questions or concerns. SIGNATURE: TRAVIS Huizar PAGER/CONTACT: Contact information: Supportive and Palliative Oncology Monday-Monday 8 AM-5 PM, MOG chat or pager [phone]. After hours and weekends: pager [phone] Images from the original note were not [...] days course) - MBS complete, no concerns. LEASING PROPERTY MANAGER recommends thin and easy to chew [...] affecting the LLE who was transferred to [facility] due to concerns for worsening infection in [...] region. No s/s of aspiration at bedside. LEASING PROPERTY MANAGER recommends thin liquid and easy to [...] 01/15/25 Status: Goal Initiated this date Plan: LEASING PROPERTY MANAGER Services Indicated: Yes Frequency: 2x week Discussed POC with patient LEASING PROPERTY MANAGER - OK to Discharge Pain: 0-10 [...] 12/06/2024 and 11/19/2024 CT examinations. ACCESSION NUMBER(S): [id number] ORDERING CLINICIAN: GIBSON MENDIOLA TECHNIQUE: Multiplanar multisequence [...] Kong Armijo 12/12/2024 1:33 PM Dictation workstation: [id number] Oncology Hx Diagnosis: Squamous cell carcinoma of [...] OT Treatment Patient Name: Kevan La Department: [facility] Room: [address] [place] [address] Today's Date: 12/13/2024 Time Calculation Start Time: [...] of Assistance 2: Contact guard Outcome Measures: [facility] Daily Activity Putting on and taking [...] Start: 12/09/24 Expected End: 01/03/25 Janny Andres (OTR/Kamila, OTD) Inpatient Occupational Therapist Rehab Office: [phone] Images from the original note were not [...] 12/06/2024 and 11/19/2024 CT examinations. ACCESSION NUMBER(S): [id number] ORDERING CLINICIAN: GIBSON MENDIOLA TECHNIQUE: Multiplanar multisequence [...] Kong Armijo 12/12/2024 1:33 PM Dictation workstation: [id number] Oncology Hx Diagnosis: Squamous cell carcinoma of [...] bit brighter,today . Eating lunch and playing [employer] Hip lesion unchanged Antibiotics amoxicillin-pot clavulanate - [...] medications to patient prior to discharge via [facility] pharmacy. Prescriptions will need to be sent 48-72 hours prior to discharge so that a prior authorization can be completed. Discharge date: unknown pending acute issues Patient has an appointment with Outpatient Supportive Oncology TRAVIS Talavera 12/17/24 SIGNATURE: TRAVIS Rodas PAGER/CONTACT: Contact information: Supportive and Palliative Oncology Monday-Monday 8 AM-5 PM [employer] Secure chat or pager [phone]. After hours and weekends: pager [phone] SUBJECTIVE: Interval Events: Pt was able to [...] UNK primary Family: Supportive though live in [place] Performance status: Moderate limitations due to pain Joys/meaning/strength: Family and [facility] Understanding of health: 12/08: Demonstrates good prognostic [...] Surrogate decision maker is brother Omkar La [phone] Signature and billing: Medical complexity was high [...] of shared electronic medical record/secure chat/email or [id number]. We will continue to follow Please contact us for additional questions or concerns. SIGNATURE: TRAVIS Rodas PAGER/CONTACT: Contact information: Supportive and Palliative Oncology Monday-Monday 8 AM-5 PM [employer] Secure chat or pager [phone]. After hours and weekends: pager [phone] Images from the original note were not [...] 12/06/2024 and 11/19/2024 CT examinations. ACCESSION NUMBER(S): [id number] ORDERING CLINICIAN: GIBSON MENDIOLA TECHNIQUE: Multiplanar multisequence [...] Kong Armijo 12/12/2024 1:33 PM Dictation workstation: [id number] MR femur left wo IV contrast Result Date: 12/12/2024 Interpreted By: Kong Armijo and Mason Montague STUDY: MRI of the left femur with and without contrast dated 12/10/2024. 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 History of chronic hidradenitis suppurativa. COMPARISON: Correlation is made with 12/06/2024 and 11/19/2024 CT examinations. ACCESSION NUMBER(S): [id number] ORDERING CLINICIAN: TOYA RUBIO TECHNIQUE: Multiplanar multisequence MRI of the left femur was performed with and without intravenous gadolinium based contrast. FINDINGS: No images were obtained as the patient was unable to cooperate for the exam. No images were obtained as the patient was unable to cooperate for the exam. MACRO: None Signed by: Kong Armijo 12/12/2024 1:18 PM Dictation workstation: [id number] Oncology Hx Diagnosis: Squamous cell carcinoma of [...] with attending physician. Fer Gupta MD (Wes) PGY-1 I have seen and evaluated the [...] MATHEW and flexed foward posture) Outcome Measures: [facility] Basic Mobility Turning from your back [...] - Adult 12/11/24 at 2:05 PM Latricia Yousif PT Rehab Office: [phone] Spiritual Care Visit Spiritual Care Request Spiritual Care Annotation Annotation: Loss Control Manager visited with the patient, who is known to this Loss Control Manager from prior admissions. Patient shared he was feeling very tired and not in the mood to talk. Patient requested a Bible and a follow-up visit. Loss Control Manager was able to bring a Bible for the patient. Loss Control Manager will follow-up tomorrow. Please reach out with any needs/concerns. Rev. Mack Schmitz, Supportive Oncology Loss Control Manager 12/09/24 1000 Discharge Planning Living Arrangements Other (Comment);Alone (admitted from [facility]) Support Systems Family members;Other (Comment) (SNF staff, SNF SW) Assistance Needed skilled, PT/OT Type of Residence longterm facility Do you have animals or pets at home? No Home or Post Acute Services Post acute facilities (Rehab/SNF/etc) (return to [facility]) Type of Post Acute Facility Services longterm Expected Discharge Disposition SNF Does the patient [...] and discuss discharge planning. Pt admitted from [facility]; pt reports that he's been there on and off since September. Pt confirmed demographic and insurance details. SW contact details written on the whiteboard in pt room. Return referral sent to [facility]. SW will follow. Fer Hidalgo [facility] 12/09/2024 1040 Per [facility], pt's current auth expires on 12/11. Further discharge planning pending updates from the care team. SW will follow. Fer Hidalgo [facility] 12/11/2024 1030 Pt auth for [facility] expires today. Clinical updates sent to facility. Further discharge planning pending updates from the care team. SW will follow. 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 male [...] weeks ago s/p I&D, BCx with slackia dhavala s/p Unasyn complete 10/28/2024 ::CT 12/06: [...] Visit Type: New visit Session Start Time: 8947 Intervention Delivery: In-person Conflict of Service: Working with other staff Treatment/Interventions Art Therapy Interventions: Assessment, Education/instruction Narrative Assessment Detail: At time of visit Pt was with a Provider. ATR will follow up with Pt another time to introduce and assess services Education Documentation No documentation found. Occupational Therapy Occupational Therapy Evaluation Patient Name: Kevan La Today's Date: 12/09/2024 Room: [address] [place] [address] Time Calculation Start Time: 1509 Stop Time: [...] and hospital stays. Prior Function: Level of [facility]: Needs assistance with ADLs, Needs assistance with [...] Within Functional Limits, , and Outcome Measures: [facility] Daily Activity Putting on and taking [...] 3:51 PM Shereen Santoyo OT Rehab Office: [phone] Physical Therapy Physical Therapy Evaluation & Treatment Patient Name: Kevan La Department: [facility] Room: [address] [place] [address] Today's Date: 12/09/2024 Time Calculation Start Time: [...] Home Living: Home Living Type of Home: Senior Care facility Home Living Comments: Pt reports he has been in hospital or SNF since Prior Level of Function: Prior Function Per Pt/Caregiver Report Level of [facility]: Needs assistance with ADLs, Needs assistance with homemaking (Assist for LE dressing and bathing) Ambulatory Assistance: Needs assistance (Using FWW. 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 Outcome Measures: [facility] Basic Mobility Turning from your back [...] Planning Living Arrangements Other (Comment);Alone (admitted from [facility]) Support Systems Family members;Other (Comment) (SNF staff, SNF SW) Assistance Needed skilled, PT/OT Type of Residence longterm facility Do you have animals or pets at home? No Home or Post Acute Services Post acute facilities (Rehab/SNF/etc) (return to [facility]) Type of Post Acute Facility Services longterm Expected Discharge Disposition SNF Does the patient [...] and discuss discharge planning. Pt admitted from [facility]; pt reports that he's been there on and off since September. Pt confirmed demographic and insurance details. SW contact details written on the whiteboard in pt room. Return referral sent to [facility]. SW will follow. Fer CORTES 12/09/2024 1040 Per [facility], pt's current auth expires on 12/11. Further discharge planning pending updates from the care team. SW will follow. Fer Beatrice Hidalgo [employer] AGRICULTURAL ECONOMICS PROFESSOR Physical Therapy Therapy Communication Note Patient Name: Kevan La Department: [facility] Room: [address] [place] [address] Today's Date: 12/09/2024 Discipline: Physical Therapy PT [...] on board. Gibson Mendiola MD, PhD Hematology/Oncology [facility] Medication History Review Kevan La is a 49 y.o. male admitted for Gluteal abscess. Pharmacy reviewed the patient's [id number] medications and allergies for accuracy. Medications ADDED: None Medications CHANGED: Ibuprofen every 6 hours to every 4 hours Medications REMOVED: Vitamin D3 10,000 units The list below reflects the updated COOLER ROOM WORKER list. Prior to Admission Medications Prescriptions Last [...] Allergies Patient declines M2B at discharge. Sources: [facility] -- [facility] Heme/onc AVS from 11/29 Additional Comments: COOLER ROOM WORKER medication list updated per [facility] SNF medication list Medication flow sheet from 11/08-12/06 Please review additional comments above for additional comments Connie Choi PharmD Transitions of Care Pharmacist 12/08/24 Secure Chat preferred If no response call [phone] or Vocera "Med Rec" 12/08/24 1221 Discharge Planning Living Arrangements Other (Comment) (Currently at [facility]) Support Systems Family members (Family all lives in [place], so supportive but distant) Type of Residence longterm facility Home or Post Acute Services Post acute facilities (Rehab/SNF/etc) Type of Post Acute Facility Services longterm Expected Discharge Disposition SNF Patient Choice Patient / Family choosing to utilize agency / facility established prior to hospitalization Yes Met with patient bedside, he is currently from [facility] in [place]; where he admitted Medicaid pending in 11/12; [...] which he states they all live in [place]. This conventional mortgage underwriter suggests as well talk to the SANTO/AVIVA at the SNF and coordinating with a [facility] Handle Maker, that there may be local resources to [...] on 12/09/2024 Exposure target: AUC24 (range)400-600 mg/L.hr WEU47-17: 570 mg/L.hr AUC24,ss: 549 mg/L.hr Probability of [...] and invasive SCC who is returning to [facility] 12/08/2024 as a transfer from [facility] regarding gluteal fluid collection. 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 November 29 initial diagnosis December 09: To start chemotherapy with cemiplimab, 21-day cycles Previous Hospital Course Notably, the pt was admitted at [facility] 11/10-11/27 after her arrived from [facility] and CT revealed large ulcerative wound at [...] Subjective Today he presents as transfer from [facility] (where he was brought to from [facility]) with reports that his wound looks worse. [...] and invasive SCC who is returning to [facility] 11/10/2024 as a transfer from [facility] regarding gluteal wound with worsening odor [...] SCC of the L hip transferred to [facility] after presenting to [facility] ED with worsening pain found to have gluteal fluid collection. Unclear whether abscess vs necrosis. MRI to further evaluate. Adjust antiemetic regimen for ongoing nausea Toya Rubio MD Staff, Gastrointestinal Medical Oncology [facility] Vancomycin Dosing by Pharmacy- INITIAL Kevan La [...] on 12/07/2024 Exposure target: AUC24 (range)400-600 mg/L.hr [id number]: 419 mg/L.hr AUC24,ss: 556 mg/L.hr Probability of [...] this encounter [facility] Work Phone: 12-19-2024 Miscellaneous Notes The patient's [...] dressing change Outcome: Progressing Flowsheets (Taken 12/17/2024 2339) Decreased wound size/increased tissue granulation at next [...] Monitor/record intake including meals Reassess MST if foil cutter not consulted 12/15/2024 1037 by Cristiana Simon RN Outcome: Progressing Flowsheets (Taken 12/15/2024 1037) Promote/optimize nutrition: Assist with feeding Discuss with provider if NPO > 2 days Offer water/supplements/favorite foods Consume > 50% meals/supplements Monitor/record intake including meals Reassess MST if foil cutter not consulted Goal: Promote skin healing 12/15/2024 1037 by Cristiana Simon RN Flowsheets (Taken 12/15/2024 1037) Promote skin healing: Assess skin/pad under line(s)/device(s) Ensure correct size (line/device) and apply per systems mgr instructions Protective dressings over bony prominences Rotate device position/do not position patient on device Turn/reposition every 2 hours/use positioning/transfer devices 12/15/2024 1037 by Cristiana Simon RN Outcome: Progressing Flowsheets (Taken 12/15/2024 1037) Promote skin healing: Assess skin/pad under line(s)/device(s) Ensure correct size (line/device) and apply per systems mgr instructions Protective dressings over bony prominences Rotate [...] home or other facility with appropriate resources 12/14/20240 by Mario Sr RN Outcome: Progressing The [...] and invasive SCC who is returning to [facility] 11/10/2024 as a transfer from [facility] regarding gluteal fluid collection. Notably, the pt was admitted at [facility] 11/10-11/27 after her arrived from [facility] and CT revealed large ulcerative wound at [...] restarted on zosyn. Was discharged to [facility] on Augmentin for one month. Today he presents as transfer from [facility] (where he was brought to from [facility]) with reports that his wound looks worse. [...] and invasive SCC who is returning to [facility] 11/10/2024 as a transfer from [facility] regarding gluteal wound with worsening odor [...] in plan/prevention/treatment measures Outcome: Progressing Flowsheets (Taken 12/07/2024 1642) Participates in plan/prevention/treatment measures: Elevate heels Discuss with provider PT/OT consult Goal: Prevent/manage excess moisture Outcome: Progressing Flowsheets (Taken 12/07/2024 1642) Prevent/manage excess moisture: Cleanse incontinence/protect with barrier cream Monitor for/manage infection if present Goal: Prevent/minimize sheer/friction injuries Outcome: Progressing Flowsheets (Taken 12/07/2024 1642) Prevent/minimize sheer/friction injuries: HOB 30 degrees or less Turn/reposition every 2 hours/use positioning/transfer devices Use pull sheet Goal: Promote/optimize nutrition Outcome: Progressing Flowsheets (Taken 12/07/2024 1642) Promote/optimize nutrition: Consume > 50% meals/supplements Goal: Promote skin healing Outcome: Progressing Flowsheets (Taken 12/07/20242) Promote skin healing: Turn/reposition every 2 hours/use [...] this encounter [facility] Work Phone: 12-18-2024 Consult note Formatting of [...] Plan: Please review reassessment Carline Jenkins RN CWEUGENIA 12/18/2024 3:28 PM Associated Order(s): Inpatient consult [...] before oncologic resection. Integrative hematology/oncology consulted by [facility] oncology team for non-pharmacological symptom management of depression and pain. Pt resting in bed at time of exam, no family at bedside. Integrative hematology/oncology consult team introduced to pt. Non-pharmacological symptom management interventions reviewed, including: Reiki, meditation, mindfulness practices, guided imagery, as well as acupuncture, acupressure, and gentle bodywork. Pt declined integrative heme/onc services. Music therapy, art therapy, bobbin dumper and pet therapy offered to pt, pt declined; pt stated the brineyard supervisor has been following. Information obtained from chart [...] 12/06/2024 and 11/19/2024 CT examinations. ACCESSION NUMBER(S): [id number] ORDERING CLINICIAN: GIBSON MENDIOLA TECHNIQUE: Multiplanar multisequence [...] Kong Armijo 12/12/2024 1:33 PM Dictation workstation: [id number] MR femur left wo IV contrast Result Date: 12/12/2024 Interpreted By: Kong Armijo and Lawrence Austen STUDY: MRI of the left femur with and without contrast dated 12/10/2024. 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 History of chronic hidradenitis suppurativa. COMPARISON: Correlation is made with 12/06/2024 and 11/19/2024 CT examinations. ACCESSION NUMBER(S): [id number] ORDERING CLINICIAN: TOYA RUBIO TECHNIQUE: Multiplanar multisequence MRI of the left femur was performed with and without intravenous gadolinium based contrast. FINDINGS: No images were obtained as the patient was unable to cooperate for the exam. No images were obtained as the patient was unable to cooperate for the exam. MACRO: None Signed by: Kong Armijo 12/12/2024 1:18 PM Dictation workstation: [id number] CT pelvis w IV contrast Result Date: [...] carcinoma. COMPARISON: CT pelvis 11/08/2024. ACCESSION NUMBER(S): [id number] ORDERING CLINICIAN: CLAUDIO PLUNKETT TECHNIQUE: CT of the chest, abdomen, and pelvis was performed. Contiguous axial images were obtained at 3 mm slice thickness through the chest, abdomen and pelvis. Coronal and sagittal reconstructions at 3 mm slice thickness were performed. 90 ML of Omnipaque 350 was administered intravenously without immediate complication. FINDINGS: CHEST: LUNG/PLEURA/LARGE AIRWAYS: Peia-ie-smjvfqoe upper lobe predominant centrilobular and paraseptal emphysema. [...] a left gluteal mass involving left gluteus radnell and minimus which is in continuity with [...] Attention on follow-up examinations is recommended. 5. Yxpk-ggxshvr-wefx-right skin thickening extending from the sacral region to the proximal thigh, in keeping with patient's background of hydradenitis suppurativa. 6. Rvpw-uf-trzkyexr upper lobe predominant centrilobular and paraseptal emphysema. I personally reviewed the images/study and I agree with the findings as stated by Elenita Munroe MD (PGY-2). This study was interpreted at [facility], [place], [place]. MACRO: None Signed by: Ravin Hyatt 11/19/2024 4:54 PM Dictation workstation: [id number] Assessment/Plan Introduction to Integrative Medicine: Spoke with pt at bedside. Patient seemed to appreciate the extra layer of support. Integrative Medicine was introduced as a service for patients with serious illness to help with symptoms through non-pharmacological management, such as mindfulness, acupuncture, and gentle bodywork. Such interventions can assist with symptoms such as anxiety, fatigue, nausea, depression and pain. [facility] Integrative Medicine Symptom Management program offers multi-disciplinary [...] integrative heme/onc services. Music therapy, art therapy, bobbin dumper and pet therapy offered to pt, pt declined; pt stated the brineyard supervisor has been following. Left gluteal pain: pain related to malignancy, lesions Pain is well-controlled Defer to supportive oncology team for adequate PO/IV pain regimen Recommend integrative therapy modalities as pt allows: -Acupuncture; provided pt education today. Pt declined services, requesting follow up when next available -Acupressure, gua sha -Gentle bodywork and stretching as tolerated -Art therapy -Music therapy -Parking Cashier -Pet therapy Altered Mood: Anxiety and/or depression r/t health concerns History of anxiety/depression -Recommend integrative medicine modalities as listed above Mindfulness Brittney: AMDtx, Calm, Headspace, Insight Timer Guided Imagery Meditation (15 min in the morning) - consider mindfulness (Mindfulness based Stress Reduction) Apps such as CALM or Headspace Deep breathing: Alternate nostril breathing and Deep abdominal breathing (5 min) in the morning [facility] - Guided Meditation Thank you for allowing us to participate in the care of this patient. Integrative Medicine Team will continue to follow as needed. Please contact team with any questions or concerns. TRAVIS Patel (available by [employer]) [facility] Inpatient Integrative Medicine I spent 45 [...] reports having a good appetite during and COOLER ROOM WORKER. COOLER ROOM WORKER would drink ensure and a pastry for [...] Energy Estimated Needs in 24 hours (kCal): ([id number]) Method for Estimating Needs: ABW x 28-32 [...] left gluteal region who was transferred to [facility] due to concerns for worsening left gluteal [...] affecting the LLE who was transferred to [facility] due to concerns of worsening LLE infection. [...] Little MD PGY-3 General Surgery Surgical Oncology [id number] Cosigned by Kong Mina MD at 12/09/2024 8:32 AM EDT Associated Order(s): Inpatient consult to [facility] Adult Supportive Oncology SUPPORTIVE AND PALLIATIVE [...] medications to patient prior to discharge via [facility] pharmacy. Prescriptions will need to be sent 48-72 hours prior to discharge so that a prior authorization can be completed. Discharge date: unknown pending acute issues Patient has an appointment with Outpatient Supportive Oncology TRAVIS Talavera 12/17/24 SIGNATURE: TRAVIS Rodas PAGER/CONTACT: Contact information: Supportive and Palliative Oncology Monday-Monday 8 AM-5 PM Epic Secure chat or pager [phone]. After hours and weekends: pager [phone] Inpatient consult to [facility] Adult Supportive Oncology Consult performed by: TRAVIS Rodas Consult ordered by: Mine Nunez MD PALLIATIVE MEDICINE OUTPATIENT PROVIDER: TRAVIS Talavera- has NPV 12/17 CURRENT ATTENDING PROVIDER: Toya Rubio MD Medical Oncologist: Sreedhar Jiang MD Radiation Oncologist: No care child study team director to display Primary Physician: No primary care provider on file. None REASON FOR CONSULT/CHIEF CONSULT COMPLAINT: pain management Subjective HISTORY OF PRESENT ILLNESS: Kevan La is a 49 y.o. male diagnosed with squamous cell carcinoma. PMH significant for refractory hidradenitis supprativa (HS), chronic gluteal wound and hypotension. Admitted 12/07/2024 for further evaluation and management of cellulitis in [facility]. Supportive and Palliative Oncology is consulted [...] alone. Has supportive brother and parents in [place], [place]. 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 Social History: reports that he [...] Value Ventricular Rate 77 Atrial Rate 77 IL Interval 146 QRS Duration 108 QT Interval 368 QTC Calculation(Bazett) 416 P [place] 55 R [place] 72 T [place] 66 QRS Count 13 Q Onset 211 [...] limitations due to pain Joys/meaning/strength: Family and [facility] Understanding of health: Demonstrates good prognostic understanding [...] Surrogate decision maker is brother Omkar La [phone] Supportive Interventions: Interventions: Music Therapy: referral placed, [...] of shared electronic medical record/secure chat/email or [id number]. We will continue to follow. Please contact us for additional questions or concerns. SIGNATURE: TRAVIS Rodas PAGER/CONTACT: Contact information: Supportive and Palliative Oncology Monday-Monday 8 AM-5 PM [employer] Secure chat or pager [phone]. After hours and weekends: pager [phone] documented in this encounter [facility] Work Phone: 12-17-2024 Hospital Discharge instructions Fer [...] this encounter [facility] Work Phone: 12-16-2024 Procedure note Associated Ord er(s): LEASING PROPERTY MANAGER MODIFIED BARIUM SWALLOW EVALUATION Speech-Language Pathology Inpatient Modified Barium Swallow Study Patient Name: Kevan La : 1975 Today's Date: 12/16/24 Start Time: 845 Stop Time: 915 Time Calculation (min): 30 min Modified Barium Swallow Study completed. Informed verbal consent obtained prior to completion of exam. Trials of thin liquid, mildly thick liquid, puree, and solids were given. LEASING PROPERTY MANAGER: MINDY Camp Contact info: [employer] Reason for Referral: C/f aspiration/oropharyngeal dysphagia Patient Hx: Kevan La is a 49 y.o. 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 LEASING PROPERTY MANAGER Frequency: 2x per week Duration: 1-2 [...] given on all accounts. Treatment Provided Today: LEASING PROPERTY MANAGER provided extensive education and training to [...] further evaluation by medical specialists, as applicable. LEASING PROPERTY MANAGER Impressions with Severity Rating: Pt presenting [...] obtained, suspect within normal limits for clearance LEASING PROPERTY MANAGER recommends cautious initiation of thin liquids and easy to chew diet. See additional PO intake guidelines outlined below. If pt demonstrates any change/decline in medical/mental/respiratory status please make NPO and alert LEASING PROPERTY MANAGER. Will continue to follow while in acute care setting to ensure diet tolerance and use of safe swallow guidelines. MD aware of recommendations Rosenbek's Penetration Aspiration Scale Thin Liquids: 3. PENETRATION with LOW ASPIRATION risk - contrast remains above vocal cords, visible residue] Ludell Thick Liquids: 3. PENETRATION with LOW ASPIRATION risk - contrast remains above vocal cords, visible residue] Puree: 1. NO ASPIRATION & NO PENETRATION - no aspiration, contrast does not enter airway Solids: 1. NO ASPIRATION & NO PENETRATION - no aspiration, contrast does not enter airway documented in this encounter [facility] Work Phone: 12-10-2024 Nurse Note Patient asked [...] this encounter [facility] Work Phone: 12-07-2024 History and physical note [facility] ACUTE CARE SURGERY - CONSULT Patient Name: Kevan La Admit Date: 12/07/2024 : 1975 AGE: 49 y.o. GENDER: male TODAY'S ASSESSMENT AND PLAN OF CARE: ASSESSMENT: Kevan La is a 49 y.o. male with history of hidradenitis supprativa refractory to numerous medications, invasive SCC dx in Oct 2024 both affecting the LLE who was transferred to [facility] due to concerns for worsening infection in the LLE. Pt is stable with no s/s of systemic infection. High suspicion for necrotic oncologic mass over fluid collection. No indication for I&D. Requested outside images from rads op, recommend requesting radiology overread. Consider MRI to further evaluation of soft tissue/mass Discussed with Dr. Garrison. Kishore Sweeney MD PGY-1 General Surgery Acute Care Surgery [id number] Subjective CHIEF COMPLAINT/REASON FOR CONSULT: Chief Complaint: change in quantity and quality of drainage from know HS HPI: Kevan La is a 49 y.o. male with history of hidradenitis supprativa refractory to numerous medications, invasive SCC dx in Oct 2024 both affecting the LLE who was transferred to [facility] due to concerns for worsening infection in [...] 12/08/2024 1:05 AM EDT Pts imaging from [place] and last imaging at [facility] reviewed. Recommend having our radiology team review [place] CT and provide comparison to last CT [...] hypotension. Today he presents as transfer from [facility], came in from SNF, reporting worsening wound. States for the last week he has noticed increased odor and discharge (unclear what color). Endorses taking his Augmentin as instructed. Denies any worsening pain. States during this time he has felt fatigued and endorses nausea and NBNB vomiting. Denies any fever, chills, or any other symptoms. Notably, the pt was admitted at [facility] 11/10-11/27 after her arrived from [facility] and CT revealed large ulcerative wound at [...] and invasive SCC who is returning to [facility] 11/10/2024 as a transfer from [facility] regarding gluteal fluid collection. Labs Cr [...] Anemia #Folate Deficiency :: Hgb 10.4 at [facility], Hgb 8.8 on admission, Hgb [...] this encounter [facility] Work Phone: 12-07-2024 Nurse Note [phone] called report to ambulance is here to pick patient up [facility] 12-07-2024 Nurse Note [phone] called report to ambulance is here to pick patient up 1114 group home RN called regarding updates, updated on patient status/plan of care documented in this encounter [facility] 12-07-2024 Note Attestation signed by Juvenal [...] carcinoma, chronic kidney diseaset hat presented to [facility] on 12/06/2024 with increased drainage from his [...] to his established general surgery team at [facility]. Transfer was arranged. Patient was maintained on [...] Time of Discharge Wound culture, Blood cultures [facility] 12-07-2024 Hospital course Narrative Internal [...] carcinoma, chronic kidney diseaset hat presented to [facility] on 12/06/2024 with increased drainage from his [...] to his established general surgery team at [facility]. Transfer was arranged. Patient was maintained on [...] on discharge >30min documented in this encounter [facility] 12-07-2024 Emergency department Note Report to AMAN Galindo. [facility] 12-07-2024 Emergency department Note Report to [...] distances. Pt is A&Ox4. Emergency Department Encounter [facility] EMERGENCY DEPT Patient: Kevan La : 1975 [...] for clarification.) Fer Hollins MD Acute Care [facility] Fer Hollins MD 12/06/24 1120 documented in this encounter [facility] 12-07-2024 Emergency department Note Patient provided urinal per request. Respirations even and unlabored. No acute distress noted. [facility] 12-07-2024 Emergency department Note Report from AMAN Galindo. [facility] 12-07-2024 Note 1114 group home RN called regarding updates, updated on patient status/plan of care [facility] 12-07-2024 Nurse Note 1114 group home RN called regarding updates, updated on patient status/plan of care [facility] 12-07-2024 Emergency department Note Report to Josie/AMAN and patient moved to room 9 with all belongings and breakfast tray [facility] 12-07-2024 Emergency department Note Patient moving from 43 to 9 now [facility] 12-07-2024 Emergency department Note AMAN/Margarita ordered breakfast for the patient per his preference [facility] 12-07-2024 Emergency department Note Requested pharmacy to retime Vanc due to 3 hour administration of Zosyn (& both ordered at same time) [facility] 12-07-2024 Consult note Formatting of th [...] creatinine, and vancomycin levels interfaced automatically to [employer] and data has been analyzed and interpreted. [...] RPh Clinical Pharmacist Available via Secure Chat [facility] 12-07-2024 Consult note Formatting of th is [...] creatinine, and vancomycin levels interfaced automatically to [employer] and data has been analyzed and interpreted. [...] via Secure Chat documented in this encounter [facility] 12-07-2024 History and physical note Internal [...] carcinoma by the general surgery team at [facility]. He is scheduled to be transferred to [...] 16.6* ABGs: No results for input(s): "PHART", "JJA2BLP", "PO2ART", "VHL5MOM", "SO2ART", "L0OVLNZE" in the last 72 hours. Lactic Acid: [...] documented squamous cell carcinoma from dermatology at [facility] -CT scan of abdomen and pelvis showing [...] Normal (BMI 18.5-24.9) - Disposition: Admit to [facility]. - Given the signs and symptoms [...] monitoring serum creatinine 7AM-5PM: contact resident on "Nourish" (find by hovering over attending's name on left side of patient's chart) 5PM-7AM: contact [facility] Phone: 12-07-2024 Note Attestation signed by Juvenal [...] serum creatinine 7AM-5PM: contact resident on "VALENTINO Felix" (find by hovering over attending's name on [...] carcinoma by the general surgery team at [facility]. He is scheduled to be transferred to [...] g) into a (more content not included)... [facility] 12-07-2024 History and physical note [...] carcinoma by the general surgery team at [facility]. He is scheduled to be transferred to [...] 16.6* ABGs: No results for input(s): "PHART", "RAN0WFT", "PO2ART", "ITL3XQS", "SO2ART", "O9QOUXUL" in the last 72 hours. Lactic Acid: [...] documented squamous cell carcinoma from dermatology at [facility] -CT scan of abdomen and pelvis showing [...] Normal (BMI 18.5-24.9) - Disposition: Admit to [facility]. - Given the signs and symptoms [...] contact AI2 res documented in this encounter [facility] 12-07-2024 Emergency department Note Patient actively vomiting - provider notified [facility] 12-07-2024 Emergency department Note Report given to AMAN Sutton [facility] 12-06-2024 Emergency department Note Assume care of pt from AMAN Sutton for lunch coverage [facility] 12-06-2024 Emergency department Note Patient requested pillow to place under right hip/leg for comfort. States he got a text message from that he can "early check in" and questioned if transfer was arranged. This nurse advised patient unknown at this time. [facility] 12-06-2024 Emergency department Note Pt to CT [facility] 12-06-2024 Emergency department Note This RN attempted to obtain another IV access and blood cultures but was unsuccessful [facility] 12-06-2024 Emergency department Note Report to AMAN Pittman. [facility] 12-06-2024 Emergency department Note Pt presents to ED via EMS from an assisted living facility with c/o a seeping ulcer. EMS reports this has been an ongoing issue. Pt states he is only ambulatory for short distances. Pt is A&Ox4. [facility] 12-06-2024 Physician Emergency department Note Emergency [...] for clarification.) Fer Hollins MD Acute Care [facility] Fer Hollins MD 12/06/24 [address] [employer] Phone: 11-29-2024 History of Present illness Narrative [...] Attention on follow-up examinations is recommended. 5. Pigr-yeniext-kbjx-right skin thickening extending from the sacral region to the proximal thigh, in keeping with patient's background of hydradenitis suppurativa. 6. Bymx-dc-kilzoyvo upper lobe predominant centrilobular and paraseptal emphysema. [...] STOP HS-[address] Hughes and Dr. Lutz. I will message them [...] clinical picture. Sreedhar Jiang MD Attending Physician [facility] Building [employer] team truck driver [facility] [employer] documented in this encounter [facility] Work Phone: 11-27-2024 History of Present illness Narrative Auth approved. Per medical team, patient is medically ready to discharge. [facility] ready to accept today. Transport confirmed for 5pm today with [facility] ([phone]). Report: [phone]. Nurse, medical team, SNF, and patient aware of and in agreement to discharge plan. Blue sheet provided to nursing unit. Jami Erwin RN, [facility] Nutrition Follow Up Assessment: Patient is a [...] "It's the consistency". Patient has tried the [employer] Custard, but states it melts before he [...] La : 1975 Date: 11/26/24 Room: [address] [place] [address] Time Calculation Start Time: 1234 Stop Time: [...] of continued care Equipment Recommended upon Discharge: (turf manager, sock aide, shower chair) OT Recommended Transfer [...] Strength Comments: WFL via ADLs Outcome Measures: [facility] Daily Activity Putting on and taking [...] 12/02/24 11/26/24 at 2:05 PM DANY Cortés/Kamila [phone] Requested [facility] team start precert for [facility]. Jami Erwin RN, [facility] Occupational Therapy Therapy Communication Note Patient Name: Kevan La Department: [place] [address] Room: [address] [place] [address] Today's Date: 11/26/2024 Discipline: Occupational Therapy OT [...] carcinoma. COMPARISON: CT pelvis 11/08/2024. ACCESSION NUMBER(S): [id number] ORDERING CLINICIAN: CLAUDIO PLUNKETT TECHNIQUE: CT of the chest, abdomen, and pelvis was performed. Contiguous axial images were obtained at 3 mm slice thickness through the chest, abdomen and pelvis. Coronal and sagittal reconstructions at 3 mm slice thickness were performed. 90 ML of Omnipaque 350 was administered intravenously without immediate complication. FINDINGS: CHEST: LUNG/PLEURA/LARGE AIRWAYS: Xsro-tq-fsyudkfq upper lobe predominant centrilobular and paraseptal emphysema. [...] Attention on follow-up examinations is recommended. 5. Shsq-glcokwo-xjlb-right skin thickening extending from the sacral region to the proximal thigh, in keeping with patient's background of hydradenitis suppurativa. 6. Qqlf-vz-aqsrdtnr upper lobe predominant centrilobular and paraseptal emphysema. I personally reviewed the images/study and I agree with the findings as stated by Elenita Munroe MD (PGY-2). This study was interpreted at [facility], [place], [place]. MACRO: None Signed by: Ravin Hyatt 11/19/2024 4:54 PM Dictation workstation: [id number] Physical Exam General: Resting in bed on [...] clindamycin, rifampin, augmentin and doxycycline, transferred from [facility] regarding 14cm gluteal fluid collection. He [...] tentatively arrange follow-up with Dr. Jiang at [facility], pending transport capabilities of eventual SNF - [...] outpt follow-up if he is establishing at [facility] for follow-up oncology care [ ] f/u [...] ::A1c and UA normal on admission at [facility] ::FeUrea 48.2% (>35=> suggestive of intrinsic renal disease) Plan - Avoid nephrotoxic drug, hypotension, sepsis, dehydration - Continuing to encourage oral hydration and monitor serum calcium #Bladder Calculi ::Incidentally noted on CT Pelvis from OSH, asymptomatic, max diam is 1.5 cm #Normocytic Anemia #Folate Deficiency :: Hgb 10.4 at [facility], Hgb 8.8 on admission, Hgb [...] Therapy Treatment Patient Name: Kevan La Department: [place] [address] Room: [address] [place] [address] Today's Date: 11/25/2024 Time Calculation Start Time: 1521 Stop Time: 1539 Time Calculation (min): 17 [...] of Assistance 2: Contact guard Outcome Measures: [facility] Basic Mobility Turning from your back [...] Visit Type: Follow-up visit Session Start Time: 1434 Session End Time: 1521 Intervention Delivery: In-person Conflict of Service: None [...] recorded blue grass version of the song, "[employer]" and expressed interest in covers of [...] oral prior to discharge. PAYOR: Veronica DISPO: [facility] is accepting FOC. ADOD 2-3 days. Will need precert. Requested updated PT/OT evals to start precert. SUPPORT/CONTACT: BrotherOmkar, Jami Erwin RN, TCC Kevan La is [...] IV contrast Narrative: Interpreted By: Ravin Hyatt, Rakel Kwong STUDY: CT CHEST ABDOMEN PELVIS W IV CONTRAST; 11/19/2024 2:43 pm INDICATION: Signs/Symptoms:new dx of invasive SCC, eval for mets. Per EMR: Patient with history of hydradenitis suppurativa with chronic left gluteal wound and recent biopsy positive for well-differentiated invasive squamous cell carcinoma. COMPARISON: CT pelvis 11/08/2024. ACCESSION NUMBER(S): [id number] ORDERING CLINICIAN: CLAUDIO PLUNKETT TECHNIQUE: CT of the chest, abdomen, and pelvis was performed. Contiguous axial images were obtained at 3 mm slice thickness through the chest, abdomen and pelvis. Coronal and sagittal reconstructions at 3 mm slice thickness were performed. 90 ML of Omnipaque 350 was administered intravenously without immediate complication. FINDINGS: CHEST: LUNG/PLEURA/LARGE AIRWAYS: Vuoh-ca-rpuglsfg upper lobe predominant centrilobular and paraseptal emphysema. [...] Attention on follow-up examinations is recommended. 5. Osbd-rmywawx-gxta-right skin thickening extending from the sacral region to the proximal thigh, in keeping with patient's background of hydradenitis suppurativa. 6. Sapf-wl-qdyfunbd upper lobe predominant centrilobular and paraseptal emphysema. I personally reviewed the images/study and I agree with the findings as stated by Elenita Munroe MD (PGY-2). This study was interpreted at [place], [place]. MACRO: None Signed by: Ravin Hyatt 11/19/2024 4:54 PM Dictation workstation: [id number] Physical Exam General: Resting in bed on [...] clindamycin, rifampin, augmentin and doxycycline, transferred from [facility] regarding 14cm gluteal fluid collection. He [...] tentatively arrange follow-up with Dr. Jiang at [facility], pending transport capabilities of eventual SNF - [...] outpt follow-up if he is establishing at [facility] for follow-up oncology care [ ] f/u [...] ::A1c and UA normal on admission at [facility] ::FeUrea 48.2% (>35=> suggestive of intrinsic renal disease) Plan - Avoid nephrotoxic drug, hypotension, sepsis, dehydration - Continuing to encourage oral hydration and monitor serum calcium #Bladder Calculi ::Incidentally noted on CT Pelvis from OSH, asymptomatic, max diam is 1.5 cm #Normocytic Anemia #Folate Deficiency :: Hgb 10.4 at [facility], Hgb 8.8 on admission, Hgb [...] IV contrast Narrative: Interpreted By: Ravin Hyatt, Rakel Kwong STUDY: CT CHEST ABDOMEN PELVIS W IV CONTRAST; 11/19/2024 2:43 pm INDICATION: Signs/Symptoms:new dx of invasive SCC, eval for mets. Per EMR: Patient with history of hydradenitis suppurativa with chronic left gluteal wound and recent biopsy positive for well-differentiated invasive squamous cell carcinoma. COMPARISON: CT pelvis 11/08/2024. ACCESSION NUMBER(S): [id number] ORDERING CLINICIAN: CLAUDIO PLUNKETT TECHNIQUE: CT of the chest, abdomen, and pelvis was performed. Contiguous axial images were obtained at 3 mm slice thickness through the chest, abdomen and pelvis. Coronal and sagittal reconstructions at 3 mm slice thickness were performed. 90 ML of Omnipaque 350 was administered intravenously without immediate complication. FINDINGS: CHEST: LUNG/PLEURA/LARGE AIRWAYS: Ryfu-jn-opqtohrj upper lobe predominant centrilobular and paraseptal emphysema. [...] Attention on follow-up examinations is recommended. 5. Efpc-minliww-nfrx-right skin thickening extending from the sacral region to the proximal thigh, in keeping with patient's background of hydradenitis suppurativa. 6. Erwn-ko-mvldsewm upper lobe predominant centrilobular and paraseptal emphysema. I personally reviewed the images/study and I agree with the findings as stated by Elenita Munroe MD (PGY-2). This study was interpreted at [facility], [place], [place]. MACRO: None Signed by: Ravin Hyatt 11/19/2024 4:54 PM Dictation workstation: [id number] Physical Exam General: Resting in bed on [...] clindamycin, rifampin, augmentin and doxycycline, transferred from [facility] regarding 14cm gluteal fluid collection. He [...] tentatively arrange follow-up with Dr. Jiang at [facility], pending transport capabilities of eventual SNF - [...] ::A1c and UA normal on admission at [facility] ::FeUrea 48.2% (>35=> suggestive of intrinsic renal disease) - Avoid nephrotoxic drug, hypotension, sepsis, dehydration - Continuing to encourage oral hydration and monitor serum calcium #Bladder Calculi ::Incidentally noted on CT Pelvis from OSH, asymptomatic, max diam is 1.5 cm #Normocytic Anemia #Folate Deficiency :: Hgb 10.4 at [facility], Hgb 8.8 on admission, Hgb 9.0 today [...] carcinoma. COMPARISON: CT pelvis 11/08/2024. ACCESSION NUMBER(S): [id number] ORDERING CLINICIAN: CLAUDIO PLUNKETT TECHNIQUE: CT of the chest, abdomen, and pelvis was performed. Contiguous axial images were obtained at 3 mm slice thickness through the chest, abdomen and pelvis. Coronal and sagittal reconstructions at 3 mm slice thickness were performed. 90 ML of Omnipaque 350 was administered intravenously without immediate complication. FINDINGS: CHEST: LUNG/PLEURA/LARGE AIRWAYS: Kirp-tp-msppdtay upper lobe predominant centrilobular and paraseptal emphysema. [...] Attention on follow-up examinations is recommended. 5. Zpea-ikvhjak-iszy-right skin thickening extending from the sacral region to the proximal thigh, in keeping with patient's background of hydradenitis suppurativa. 6. Ebhu-su-zebotdav upper lobe predominant centrilobular and paraseptal emphysema. I personally reviewed the images/study and I agree with the findings as stated by Elenita Munroe MD (PGY-2). This study was interpreted at [place], [place]. MACRO: None Signed by: Ravin Hyatt 11/19/2024 4:54 PM Dictation workstation: [id number] Physical Exam General: Resting in bed on [...] clindamycin, rifampin, augmentin and doxycycline, transferred from [facility] regarding 14cm gluteal fluid collection. He [...] tentatively arrange follow-up with Dr. Jiang at [facility], pending transport capabilities of eventual SNF - [...] ::A1c and UA normal on admission at [facility] ::FeUrea 48.2% (>35=> suggestive of intrinsic renal disease) - Avoid nephrotoxic drug, hypotension, sepsis, dehydration - Continuing to encourage oral hydration and monitor serum calcium #Bladder Calculi ::Incidentally noted on CT Pelvis from OSH, asymptomatic, max diam is 1.5 cm #Normocytic Anemia #Folate Deficiency :: Hgb 10.4 at [facility], Hgb 8.8 on admission, Hgb [...] molecule JAK1 inhibitor), who was transferred from [facility] for a worsening of L [...] the context of long-standing hidradenitis suppurativa, PMID: [id number] 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 standing ther ex [...] avoid weight thru left side.) Outcome Measures: [facility] Basic Mobility Turning from your back [...] q8h Continue scheduled fentanyl 50mcg/h TD patch [id number]--[id number] 11/20/24 Continue gabapentin 300mg PO once daily [...] One time PRN dose of bisacodyl 10mg [place] ordered per primary Goal to have BM without straining q48-72h, adjust regimen as needed Encourage mobility as tolerated, PT/OT following Disposition: Please start the process of having prior authorization with meds to beds deliver medications to patient prior to discharge via [facility] pharmacy. Prescriptions will need to be sent 48-72 hours prior to discharge so that a prior authorization can be completed. Discharge date pending resolution of acute hospital issues. Patient does not currently qualify for an appointment with outpatient Supportive Oncology--He first needs to establish with outpatient [facility]. SIGNATURE: TRAVIS Huizar PAGER/CONTACT: Contact information: Supportive and Palliative Oncology Monday-Monday 8 AM-5 PM [employer] Secure chat or pager [phone]. After hours and weekends: pager [phone] == SUBJECTIVE: Pain Assessment: I have no pain right now. Opioid Requirements Past 24h opioid requirements: (11/21-11/22, 4785-3707) fentanyl 50mcg/h TD patch x 1 = [...] of Care/Advance Care Planning: (Per Emile Segovia, MICROMATIC HONE OPERATOR's, note on 11/16/24) Patient's current clinical condition, including diagnosis, prognosis, and management plan, and goals of care were discussed. Life limiting disease: SCC of UNK primary Family: Supportive though live in [place] Performance status: Moderate limitations due to pain Joys/meaning/strength: Family and [facility] Understanding of health: 11/16: Demonstrates good prognostic [...] maker: Surrogate decision maker is Omkar robertson ([phone]) == Signature and billing: Medical complexity was [...] of shared electronic medical record/secure chat/email or [id number]. We will continue to follow. Please contact us for additional questions or concerns. SIGNATURE: TRAVIS Huizar PAGER/CONTACT: Contact information: [facility] Oncology Monday-Monday 8 AM-5 PM, [employer] Secure chat or pager [phone]. After hours and weekends: pager [phone] Kevan La is a 49 y.o. male [...] clindamycin, rifampin, augmentin and doxycycline, transferred from [facility] regarding 14cm gluteal fluid collection. He [...] tentatively arrange follow-up with Dr. Jiang at [facility], pending transport capabilities of eventual SNF - [...] ::A1c and UA normal on admission at [facility] ::FeUrea 48.2% (>35=> suggestive of intrinsic renal disease) - Avoid nephrotoxic drug, hypotension, sepsis, dehydration - Continuing to encourage oral hydration and monitor serum calcium #Bladder Calculi ::Incidentally noted on CT Pelvis from OSH, asymptomatic, max diam is 1.5 cm #Normocytic Anemia #Folate Deficiency :: Hgb 10.4 at [facility], Hgb 8.8 on admission, Hgb [...] firm, but not rigid, non-tender : No Wallcae cath Extremities: No LE edema. Skin: Left [...] clindamycin, rifampin, augmentin and doxycycline, transferred from [facility] regarding 14cm gluteal fluid collection. He [...] metastatic lesion). Additional biopsies taken by dermatology 2/28 showed invasive SCC. Tumor board meeting 11/18/24 recommended initial management by Med Onc. No immediate surgical interventions recommended. Pain is not optimally controlled. 11/21 Updates: - LC staining negative - [facility] [place] 61.2 (H), Lambda 44.2 (H), ratio 1.38 [...] tentatively arrange follow-up with Dr. Jiang at [facility], pending transport capabilities of eventual SNF - [...] ::A1c and UA normal on admission at [facility] ::FeUrea 48.2% (>35=> suggestive of intrinsic renal disease) - Avoid nephrotoxic drug, hypotension, sepsis, dehydration - Continuing to encourage oral hydration and monitor serum calcium #Bladder Calculi ::Incidentally noted on CT Pelvis from OSH, asymptomatic, max diam is 1.5 cm #Normocytic Anemia #Folate Deficiency :: Hgb 10.4 at [facility], Hgb 8.8 on admission, Hgb [...] q8h Continue scheduled fentanyl 50mcg/h TD patch [id number] 11/20/24 Start gabapentin 300mg PO once daily [...] One time PRN dose of bisacodyl 10mg [place] ordered per primary Goal to have BM without straining q48-72h, adjust regimen as needed Encourage mobility as tolerated, PT/OT following Disposition: Please start the process of having prior authorization with meds to beds deliver medications to patient prior to discharge via [facility] pharmacy. Prescriptions will need to be sent 48-72 hours prior to discharge so that a prior authorization can be completed. Discharge date: unknown pending acute issues Patient does not qualify for an appointment with Outpatient Supportive Oncology- needs to establish with Oncology outpatient SIGNATURE: Jami Lance APRN-NEHAL PAGER/CONTACT: Contact information: [facility] Oncology Monday-Monday 8 AM-5 PM [employer] Secure chat or pager [phone]. After hours and weekends: pager [phone] == SUBJECTIVE: Interval Events: Pt's pain sub-optimally controlled on current regimen. Discussed with pt and he is agreeable to above recommendations. Plans to re-evaluate pt tomorrow for possible eligibility for fentanyl patch increase. Dropped off Supportive Oncology information packet, [facility] packet, and packet regarding assistance with disability/financial resources per brineyard supervisor. Pain Assessment: Location: Left gluteal abscess Duration: Constant Characteristics: Ratin/10 Descriptors: Throbbing, sharp, and burning Aggravating: Movement, "worse at night" Relieving: Analgesics, positioning, and modifying activity Interference with Function: Somewhat Opioid Requirements Past 24h opioid requirements: (11/20-11/21, 8359-4563) fentanyl 50mcg/h TD patch x 1 = [...] of Care/Advance Care Planning: (Per Emile Segovia, MICROMATIC HONE OPERATOR's, note on 11/16/24) Patient's current clinical condition, including diagnosis, prognosis, and management plan, and goals of care were discussed. Life limiting disease: SCC of UNK primary Family: Supportive though live in [place] Performance status: Moderate limitations due to pain Joys/meaning/strength: Family and [facility] Understanding of health: 11/16: Demonstrates good prognostic [...] maker: Surrogate decision maker is Omkar robertson ([phone]) == Signature and billing: Medical complexity was [...] of shared electronic medical record/secure chat/email or [id number]. We will continue to follow. Please contact us for additional questions or concerns. SIGNATURE: TRAVIS Huizar PAGER/CONTACT: Contact information: [facility] Oncology Monday-Monday 8 AM-5 PM, [employer] Secure chat or pager [phone]. After hours and weekends: pager [phone] Transitional Care Coordination Progress Note: Patient discussed during interdisciplinary rounds. Team members present: MIGUEL NIELSEN Plan per Medical/Surgical team: Gluteal Abscess Payor: [facility] Discharge disposition: [facility] Potential Barriers: medical ADOD: 3-4 days Per MD, continuing to manage pain. Pending plans from oncology. Updated notes sent to facility. Will continue to follow for discharge planning needs. Julisa GARZA, tow truck dispatcher Coordinator (TCC) [phone] Occupational Therapy OT Treatment Patient Name: Kevan La Department: [place] [address] Room: [address] [place] [address] Today's Date: 11/21/2024 Time Calculation Start Time: 0951 Stop Time: 1031 Time Calculation (min): 40 min Assessment: Barriers [...] health - pt highly appreciative. Outcome Measures: [facility] Daily Activity Putting on and taking [...] (OTR/L, OTD) Inpatient Occupational Therapist Rehab Office: [phone] Spiritual Care Visit Spiritual Care Request Spiritual Care Annotation Annotation: Loss Control Manager had a follow-up visit with the patient. Loss Control Manager delivered prayer book resources as promised and shared with the patient what was brought. 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 His family lives in [place]. Patient does not have much support around him in [place]. Loss Control Manager placed a [facility] cancer support referral for the patient upon his request. Loss Control Manager will continue to follow and provide support. Please reach out with any needs/concerns. Rev. Mack Schmitz, Supportive Oncology Loss Control Manager Physical Therapy Therapy Communication Note Patient Name: Kevan La Department: [place] [address] Room: [address] [place] [address] Today's Date: 11/20/2024 Discipline: Physical Therapy PT Missed Visit: Yes Missed Visit Reason: Missed Visit Reason: Patient refused (Pt stated he has been nauseaus today and not willing to get up.) Missed Time: Attempt Comment: Cosigned by Doris Guzman PT at 11/20/2024 9:44 PM EST Occupational Therapy Therapy Communication Note Patient Name: Kevan La Department: [place] [address] Room: [address] [place] [address] Today's Date: 11/20/2024 Discipline: Occupational Therapy OT [...] (OTR/L, OTD) Inpatient Occupational Therapist Rehab Office: [phone] Kevan La is a 49 y.o. male [...] medications to patient prior to discharge via [facility] pharmacy. Prescriptions will need to be sent 48-72 hours prior to discharge so that a prior authorization can be completed. Discharge date: unknown pending acute issues Patient does not qualify for an appointment with Outpatient Supportive Oncology- needs to establish with Oncology outpatient SIGNATURE: TRAVIS Rodas PAGER/CONTACT: Contact information: [facility] Palliative Oncology Monday-Monday 8 AM-5 PM [employer] Secure chat or pager [phone]. After hours and weekends: pager [phone] SUBJECTIVE: Interval Events: Pt continues to have [...] UNK primary Family: Supportive though live in [place] Performance status: Moderate limitations due to pain Joys/meaning/strength: Family and [facility] Understanding of health: 11/16: Demonstrates good prognostic [...] of shared electronic medical record/secure chat/email or [id number]. We will continue to follow Please contact us for additional questions or concerns. SIGNATURE: TRAVIS Rodas PAGER/CONTACT: Contact information: [facility] Monday-Monday 8 AM-5 PM [employer] Secure chat or pager [phone]. After hours and weekends: pager [phone] Kevan La is a 49 y.o. male [...] clindamycin, rifampin, augmentin and doxycycline, transferred from [facility] regarding 14cm gluteal fluid collection. He [...] tentatively arrange follow-up with Dr. Jiang at [facility], pending transport capabilities of eventual SNF - [...] ::A1c and UA normal on admission at [facility] ::FeUrea 48.2% (>35=> suggestive of intrinsic renal disease) - Avoid nephrotoxic drug, hypotension, sepsis, dehydration - Continuing to encourage oral hydration and monitor serum calcium #Bladder Calculi ::Incidentally noted on CT Pelvis from OSH, asymptomatic, max diam is 1.5 cm #Normocytic Anemia #Folate Deficiency :: Hgb 10.4 at [facility], Hgb 8.8 on admission, Hgb [...] 3:22 PM EST Associated attestation - Gilbert Slyvester MD - 11/20/2024 3:22 PM EST I [...] molecule JAK1 inhibitor), who was transferred from [facility] for a worsening of L [...] the context of long-standing hidradenitis suppurativa, PMID: [id number] 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 Lauri eMsa MD Spiritual Care Visit Spiritual Care Request Reason for Visit: Routine Visit: Introduction Continue Visiting: Yes Request Received From: Referral From: Patient Focus of Care: Visited With: Patient Refer to Loss Control Manager: Spiritual Care Assessment Spiritual Assessment: Care Provided: Intended Effects: Build relationship of care and support, Establish rapport and connectedness, Aligning care plan with patient's values, Convey a calming presence, Promote sense of peace Interventions: Ask guided questions, Active listening, Discuss concerns Sense of Community and or Protestant Affiliation: No hindu on file Loss Control Manager Addressed Needs/Concerns and/or Mike Through: Outcome: Advance Directives: Spiritual Care Annotation Annotation: Loss Control Manager introduced self and spiritual care services [...] to focus on in his own life. Loss Control Manager made a plan to follow-up tomorrow. Please reach out with any needs/concerns. Rev. Mack Schmitz, Supportive Oncology Loss Control Manager Music Therapy Note Kevan La Therapy Session Referral Type: New referral this admission Visit Type: New visit Session Start Time: 1341 Session End Time: 8 Intervention Delivery: In-person Conflict of Service: None [...] what it's like to be a truck mechanic, about his relationship with music, etc. Patient [...] clindamycin, rifampin, augmentin and doxycycline, transferred from [facility] regarding 14cm gluteal fluid collection. He [...] ::A1c and UA normal on admission at [facility] ::FeUrea 48.2% (>35=> suggestive of intrinsic renal disease) - Avoid nephrotoxic drug, hypotension, sepsis, dehydration - Continuing to encourage oral hydration and monitor serum calcium #Bladder Calculi ::Incidentally noted on CT Pelvis from OSH, asymptomatic, max diam is 1.5 cm #Normocytic Anemia #Folate Deficiency :: Hgb 10.4 at [facility], Hgb 8.8 on admission, Hgb [...] Hydroxy, Total 79 (11/10/24) General Chemistry reviewed: (3/3/25) Labs wnl except sodium 135(L). Nutrition Specific [...] Gluteal abscess Payor: [facility] Discharge disposition: [facility] Potential Barriers: medical ADOD: 2-3 days Updated notes sent to [facility]. Will continue to monitor for discharge planning needs. Julisa GARZA, tow truck dispatcher Coordinator (TCC) [phone] Physical Therapy Physical Therapy Treatment Patient Name: Kevan La Department: [place] [address] Room: [address] [place] [address] Today's Date: 11/18/2024 Time Calculation Start Time: [...] of Assistance 1: Close supervision Outcome Measures: [facility] Basic Mobility Turning from your back [...] clindamycin, rifampin, augmentin and doxycycline, transferred from [facility] regarding 14cm gluteal fluid collection. He [...] ::A1c and UA normal on admission at [facility] ::FeUrea 48.2% (>35=> suggestive of intrinsic renal disease) - Avoid nephrotoxic drug, hypotension, sepsis, dehydration - Continuing to encourage oral hydration and treat hypercalcemia #Bladder Calculi ::Incidentally noted on CT Pelvis from OSH, asymptomatic, max diam is 1.5 cm #Anemia :: Hgb 10.4 at [facility], Hgb 8.8 on admission, Hgb [...] clindamycin, rifampin, augmentin and doxycycline, transferred from [facility] regarding 14cm gluteal fluid collection. He [...] ::A1c and UA normal on admission at [facility] ::FeUrea 48.2% (>35=> suggestive of intrinsic renal disease) - Avoid nephrotoxic drug, hypotension, sepsis, dehydration - Continuing to encourage oral hydration and treat hypercalcemia #Bladder Calculi ::Incidentally noted on CT Pelvis from OSH, asymptomatic, max diam is 1.5 cm #Anemia :: Hgb 10.4 at [facility], Hgb 8.8 on admission, Hgb [...] Ashly Patterson MD Endocrinology, PGY 5 Pager [phone] or secure chat Case discussed with Dr. [...] clindamycin, rifampin, augmentin and doxycycline, transferred from [facility] regarding 14cm gluteal fluid collection. He [...] ::A1c and UA normal on admission at [facility] ::FeUrea 48.2% (>35=> suggestive of intrinsic renal disease) - Avoid nephrotoxic drug, hypotension, sepsis, dehydration - Continuing to encourage oral hydration and treat hypercalcemia #Bladder Calculi ::Incidentally noted on CT Pelvis from OSH, asymptomatic, max diam is 1.5 cm #Anemia :: Hgb 10.4 at [facility], Hgb 8.8 on admission, Hgb [...] La : 1975 Date: 11/15/24 Room: [address] [place] [address] Time Calculation Start Time: 1530 Stop Time: [...] Dressing Where Assessed: Bed level Outcome Measures: [facility] Daily Activity Putting on and taking [...] 11/15/24 at 4:17 PM Shereen Santoyo OT [phone] Kevan La is a 49 y.o. male [...] Communication Note Patient Name: Kevan La Department: [place] [address] Room: [address] [place] [address] Today's Date: 11/15/2024 Discipline: Physical Therapy PT [...] medications: HYDROmorphone, naloxone, ondansetron, oxyCODONE, oxyCODONE Assessment/Plan Kvean La is a 49 y.o. male with refractory hidradenitis supprativa (HS) not responding to povorcitinib (RCT candidate), apremilast, isotretinoin, adalimumab, infliximab, moxifloxacin/metronidazole, minocyclin, clindamycin, rifampin, augmentin and doxycycline, transferred from [facility] regarding 14cm gluteal fluid collection. He [...] ::A1c and UA normal on admission at [facility] ::FeUrea 48.2% (>35=> suggestive of intrinsic renal disease) - Avoid nephrotoxic drug, hypotension, sepsis, dehydration - Continuing to encourage oral hydration and treat hypercalcemia #Bladder Calculi ::Incidentally noted on CT Pelvis from OSH, asymptomatic, max diam is 1.5 cm #Anemia :: Hgb 10.4 at [facility], Hgb 8.8 on admission, Hgb [...] folate supplementation Isa Turner MD vice president network development, PGY-1 Cosigned by Claudio Plunkett MD at [...] molecule JAK1 inhibitor), who was transferred from [facility] for a worsening of L [...] the context of long-standing hidradenitis suppurativa, PMID: [id number] 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 He [...] Plan: - continue to follow BCx from [facility] -> micro lab -> blood Cx [...] of low BPs :: normal TSH @ [facility] #Hypercalcemia, mild ::presented with CoCa [...] ::A1c and UA normal on admission at [facility] ::FeUrea 48.2% (>35=> suggestive of intrinsic renal disease) - Avoid nephrotoxic drug, hypotension, sepsis, dehydration - Continuing to encourage oral hydration and treat hypercalcemia #Bladder Calculi ::Incidentally noted on CT Pelvis from OSH, asymptomatic, max diam is 1.5 cm #Anemia :: Hgb 10.4 at [facility], Hgb 8.8 on admission, Hgb [...] levels ordered Isa Turner MD vice president network development, PGY-1 Cosigned by Claudio Plunkett MD at [...] note with the exception/addition of the following: hypercalcemia is likely malignancy related . Transitional Care Coordination Progress Note: Patient discussed during interdisciplinary rounds. Team members present: MIGUEL NIELSEN Plan per Medical/Surgical team: Gluteal abscess [facility] Discharge disposition: [facility] Potential Barriers: medical ADOD: 2-3 days Per MD, pending final culture results. Will continue to monitor for discharge planning needs. Updated notes sent to facility. Will continue to monitor for discharge planning needs. Julisa GARZA, tow truck dispatcher Coordinator (TCC) [phone] Kevan La is a 49 y.o. male [...] patient please haiku or call id pager [phone] Sarah Caldwell, MS4 [employer] Infectious [...] on 11/14/2024 Exposure target: AUC24 (range)400-600 mg/L.hr CEM69-23: 477 mg/L.hr AUC24,ss: 476 mg/L.hr Probability of [...] and signs/symptoms of toxicity. Alee Rios, PharmD [place] [address] Pharmacist Kevan La is a 49 y.o. [...] Intake/Output Summary (Last 24 hours) at 11/13/2024 0756 Last data filed at 11/13/2024 0357 Gross [...] clindamycin, rifampin, augmentin and doxycycline, transferred from [facility] regarding 14cm gluteal fluid collection. He [...] 3 weeks ago s/p I&D, BCx with slacynthiatatianna oliveiramohindera s/p Unasyn complete 10/28/2024 presenting to [...] ::Lactate 11/08: 1.2; 1.3 on 11/10 :: [facility] Blood Cx 11/08 NGTD; Wound Cx were ordered, but not collected :: Last dose of Povorcitanib 1/23 :: WBC 11.1 :: Blood Cx from 11/10 NGTD :: Tissue Cx from 11/12 in progress, no organism seen on Gram stain :: s/p tissue bx 11/12 with Dermatology Plan: - continue to follow BCx from [facility] -> micro lab -> blood Cx [...] of low BPs :: normal TSH @ [facility] #Hypercalcemia, mild ::presented with CoCa 12.5; iCa 1.69; PTH <6.3 ::25-OH vit D 79; 1.25-OH vit D 35.9 ::PTHrP, SPEP, urine Ca pending :: UPEP wnl ::TSH wnl at [facility] :: Endo following :: s/p pamidronate 90 mg IV 11/12/24 - follow SPEP, urine 24 hr Ca, PTHrP, 1.25-OH vit D levels - continue 200 ml/hr NS #Nicotine Use - Continue home Chantix #Subacute PARUL ::Cr ~1.6 on last admission, 1.48 on admission to [facility] 11/08 > 1.42, prior Cr in 03/2023 was 1.2; Cr 1.44 on presentation to ::On prior admission was evaluated for this with normal UA, CT with no hydronephrosis, felt to be 2/2 NSAID use for HS ::A1c and UA normal on admission at [facility] ::FeUrea 48.2% (>35=> suggestive of intrinsic renal disease) - Avoid nephrotoxic drug, hypotension, sepsis, dehydration - Continuing to encourage oral hydration and treat hypercalcemia #Bladder Calculi ::Incidentally noted on CT Pelvis from OSH, asymptomatic, max diam is 1.5 cm #Anemia :: Hgb 10.4 at [facility], Hgb 8.8 on admission, 8.3 today, stable :: 10/10/24: decr TIBC 218 and Fe 24; normal ferritin 259 :: Holding home PO iron iso possible infection - no evidence of bleeding, pt is HD stable (BPs are soft at baseline per pt), no tachycardia, no neurological changes - will maintain active type and screen Isa Turner MD vice president network development, PGY-1 Cosigned by Claudio Plunkett MD at [...] & Treatment Patient Name: Kevan La Department: [facility] 3 Room: [address] [place] [address]-A Today's Date: 11/12/2024 Time Calculation Start Time: [...] to (R) lean/propped on elbow. Outcome Measures: [facility] Basic Mobility Turning from your back [...] clindamycin, rifampin, augmentin and doxycycline, transferred from [facility] regarding 14cm gluteal fluid collection. He [...] Plan: - continue to follow BCx from [facility] -> micro lab -> blood Cx - [...] of low BPs :: normal TSH @ [facility] #Hypercalcemia, mild ::presented with CoCa 12.5; iCa 1.69; PTH <6.3 ::25-OH vit D 79 ::1.25-OH vit D, PTHrP, SPEP, urine Ca pending :: UPEP wnl ::TSH wnl at [facility] :: Endo following - follow SPEP, urine 24 hr Ca, PTHrP, 1.25-OH vit D levels - continue 200 ml/hr NS #Nicotine Use - Continue home Chantix #Subacute PARUL ::Cr ~1.6 on last admission, 1.48 on admission to [facility] 11/08 > 1.42, prior Cr in 03/2023 was 1.2; Cr 1.44 on presentation to ::On prior admission was evaluated for this with normal UA, CT with no hydronephrosis, felt to be 2/2 NSAID use for HS ::A1c and UA normal on admission at [facility] :: FeUrea 48.2% (>35=> suggestive of intrinsic renal disease) - Avoid nephrotoxic drug, hypotension, sepsis, dehydration - Continuing to encourage oral hydration and treat hypercalcemia #Bladder Calculi ::Incidentally noted on CT Pelvis from OSH, asymptomatic, max diam is 1.5 cm #Anemia :: Hgb 10.4 at [facility], Hgb 8.8 on admission, 8.3 today - no evidence of bleeding, pt is HD stable (Bps are soft at baseline per pt), no tachycardia, no neurological changes - will maintain active type and screen Isa Turner MD vice president network development, PGY-1 Cosigned by Claudio Plunkett MD at [...] Kevan La Today's Date: 11/11/2024 Room: [address] [place] [address] Time Calculation Start Time: 1234 Stop Time: [...] abscess General: Reason for Referral: returning to [facility] 11/10/2024 as a transfer from [facility] regarding 14cm gluteal fluid collection, concern of sepsis. 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 Pt reports furniture walking at SNF. 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 male [...] clindamycin, rifampin, augmentin and doxycycline, transferred from [facility] regarding 14cm gluteal fluid collection. He [...] improving. 11/11 Updates: - Blood Cx from [facility] neg x 2 days; tissue Cx was never collected @ [facility] - ACS recommends no surgical [...] ::Lactate 11/08: 1.2; 1.3 on 11/10 :: [facility] Blood Cx 11/08 NGTD; Wound Cx were ordered, but not collected :: Blood Cx 11/10 NGTD Plan: - continue to follow BCx from [facility] -> micro lab -> blood Cx [...] of low BPs :: normal TSH @ [facility] #Hypercalcemia, mild ::presented with CoCa 12.5; iCa 1.69; PTH <6.3 ::25-OH vit D 79 ::1.25-OH vit D, PTHrP, UPEP, SPEP, urine Ca pending ::TSH wnl at [facility] :: Endo following - follow UPEP, SPEP, urine 24 hr Ca, PTHrP, 1.25-OH vit D levels - continue 200 ml/hr NS #Nicotine Use - Continue home Chantix #Subacute PARUL ::Cr ~1.6 on last admission, 1.48 on admission to [facility] 11/08 > 1.42, prior Cr in 03/2023 was 1.2; Cr 1.44 on presentation to ::On prior admission was evaluated for this with normal UA, CT with no hydronephrosis, felt to be 2/2 NSAID use for HS ::A1c and UA normal on admission at [facility] :: FeUrea 48.2% (>35=> suggestive of intrinsic renal disease) - Avoid nephrotoxic drug, hypotension, sepsis, dehydration - Continuing to encourage oral hydration and treat hypercalcemia #Bladder Calculi ::Incidentally noted on CT Pelvis from OSH, asymptomatic, max diam is 1.5 cm #Anemia :: Hgb 10.4 at [facility], Hgb 8.8 on admission, 8.3 today - no evidence of bleeding, pt is HD stable (Bps are soft at baseline per pt), no tachycardia, no neurological changes - will maintain active type and screen Isa Turner MD vice president network development, PGY-1 Cosigned by Claudio Plunkett MD at [...] Plan per Medical/Surgical team: Gluteal abscess Payor: [facility] Discharge disposition: [facility] Potential Barriers: none ADOD: 3-4 days Per MD, pending plans from [facility]. Updated notes sent to facility and requested update if patient will need precert to return. Will continue to monitor for discharge planning needs. Julisa GARZA, tow truck dispatcher Coordinator (TCC) [phone] Pharmacy Admission Order Reconciliation Review Kevan La [...] team at any time. Ti Mays PharmD [facility] [id number] [place] [address] Kristy. [facility], Room# [address] [place] [address] Please reach out via Secure Chat for questions, or if no response call [facility] or [facility] Medication History Review Kevan La is a 49 y.o. male admitted for No Principal Problem: There is no principal problem currently on the Problem List. Please update the Problem List and refresh.. Pharmacy reviewed the patient's [id number] medications and allergies for accuracy. Medications ADDED Multivitamin Ibuprofen OTC 200 mg Ensure plus Medications CHANGED Miralax Medications REMOVED/NOT TAKING Alteplase 2 mg Leda-colace The list below reflects the updated COOLER ROOM WORKER list. Prior to Admission Medications Prescriptions Last [...] Pharmacy has been updated to [facility] Pharmacy dispense history Patient interview Good historian Chart Review Discharge summary 10/23/24 Additional Comments N/A Ti Mays, AlbertoD [facility] [address] [address] [facility], Room# [address] [place] [address] Please reach out via Secure Chat for questions, or if no response call [facility] or [facility] Vancomycin Dosing by Pharmacy- FOLLOW UP Kevan [...] on 11/12/2024 Exposure target: AUC24 (range)400-600 mg/L.hr UYR61-62: 500 mg/L.hr AUC24,ss: 488 mg/L.hr Probability of [...] clindamycin, rifampin, augmentin and doxycycline, transferred from [facility] regarding 14cm gluteal fluid collection. He [...] - Follow BCx and Wound Cx from [facility] [phone] micro lab - ACS Surgery consulted - [...] of low BPs :: normal TSH @ [facility] #Hypercalcemia, mild ::CoCa 12.5; iCa 1.69; PTH <6.3 ::25-OH vit D 79 ::1.25-OH vit D, PTHrP, UPEP, SPEP, urine Ca pending ::TSH wnl at [facility] - 1 L NS bolus given this AM, 200 ml/hr NS - PM RFP - Endo consulted, appreciate recommendations #Nicotine Use - Continue home Chantix #Subacute PARUL ::Cr ~1.6 on last admission, 1.48 on admission to [facility] 11/08 > 1.42, prior Cr in 03/2023 was 1.2; Cr 1.44 on presentation to ::On prior admission was evaluated for this with normal UA, CT with no hydronephrosis, felt to be 2/2 NSAID use for HS ::A1c and UA normal on admission at [facility] - Avoid nephrotoxic drug, hypotension, sepsis, dehydration - Continuing to encourage oral hydration #Bladder Calculi ::Incidentally noted on CT Pelvis from OSH, asymptomatic, max diam is 1.5 cm #Anemia :: Hgb 10.4 at [facility], Hgb 8.8 on admission - no evidence of bleeding, pt is HD stable (Bps are soft at baseline per pt), no tachycardia - will maintain active type and screen Isa Turner MD vice president network development, PGY-1 Cosigned by Claudio Plunkett MD at [...] Arrangements Other (Comment) (Pt is from [facility]. Prior to his SNF stay, pt lived at home with his dog.) Support Systems Family members Assistance Needed Await PT/OT recommendations. Pt was at SNF for IV atbs and wound care. Type of Residence longterm facility Do you have animals or pets at home? No (Pt sent his dog to stay with his brother in [place].) Home or Post Acute Services Post acute facilities (Rehab/SNF/etc) Type of Post Acute Facility Services longterm Expected Discharge Disposition SNF Does the patient [...] were you homeless or living in a group home (including now)? N Transportation Needs In the [...] Met with pt and introduced myself as behavioral health care manager and member of the Care Transitions team for discharge planning. Pt was recently admitted from 10/10-10/23 for a gluteal abscess. Pt was discharged to [facility] (with pending Medicaid #[id number]) for IV atbs and wound care. Pt would like to return to [facility], if SNF is needed at discharge. Pt is currently receiving IV atbs, await PT/OT evaluations. Referral was sent to [facility] for return via [facility]. Prior to his SNF stay, pt was living at home alone. 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 Pt's address, phone number and contact information was verified, pt's brother Omkar was added. Email sent to the insurance DL to verify if pt's Medicaid is active. Pt does not have any other questions/concerns at this time. Aida VELASQUEZ, RN- Transitional Research Staff Member (TCC) [phone] documented in this encounter [facility] Work Phone: 11-27-2024 Hospital Discharge instructions Danna Soares MD - 11/27/2024 12:16 PM EDT Discharge Instructions Dear Kevan La, You were admitted to [facility] for your worsening gluteal wound and concern [...] at this dosing while you are at [facility]. The supportive oncology doctors will see you once you leave [facility] and will continue prescribing these medicines at that time. If you would like to orange picker machine operator your medications from another pharmacy, ask your pharmacy to contact [facility] pharmacy to transfer over the prescriptions Appointments/Follow-Up: We have requested an automated system to call you to schedule; however if you do not hear from them in 3 days, please call [facility] appointment line: [phone] or to make the appointment yourself Dr. Jiang (oncology at [facility]) 11/29, 2:20pm Supportive oncology follow-up with Astrid Hawley on 12/17 at 1pm Please call and schedule appointment with your primary care doctor within 2 week, tell them that patient was recently admitted to the hospital. If you need to establish with new primary care doctor, please call and schedule an appointment with [facility]: phone: [phone] Lab work needed: No need to make appointment or have prescription. Please go to any labs to complete below None It was a pleasure taking care of you, Your Care Team documented in this encounter [facility] Work Phone: 11-26-2024 Miscellaneous Notes The patient's goals for the shift include The clinical goals for the shift include Pt. pain will be controlled this shift 8031-2110 Over the shift, the patient's pain has [...] and discussed patient case with supportive oncology ASSEMBLER INSULATOR, Omaira Clayton APRN and primary team. Patient with ongoing frequent PRN opioid requirements and suboptimally controlled pain. Plans for upcoming discharge. 24H Opioid Requirements Past 24h opioid requirements (11/24-11/25, 7622-8115): Fentanyl 50 mcg/h TD patch x 1 [...] medications to patient prior to discharge via [facility] pharmacy. Prescriptions will need to be [...] SIGNATURE: Nellie Douglass PharmD Palliative Medicine Clinical School Plant Consultant Supportive Oncology Services PAGER/CONTACT: Contact information: Supportive and Palliative Oncology Monday-Monday 8 AM-5 PM [employer] Secure chat or pager [phone]. After hours and weekends: pager [phone] Cosigned by TRAVIS Pinzon at 11/25/2024 1:08 PM EDT Electronically signed by Nellie Douglass [facility] at 11/25/2024 1:03 PM EDT Associated attestation [...] way of shared electronic medical record or [id number]. Medical complexity was high level due to due to complexity of problems, extensive data review, and high risk of management/treatment. I spent 15 minutes in the care of this patient which included chart review, interviewing patient/family, discussion with primary team, coordination of care, and documentation. Omaira Clayton APRN-NEHAL PATIENT: KEVAN LA : 1975 ADMIT DATE: 11/10/2024 3:29 AM DISCH DATE: RESPONDING PROVIDER #: [id number] PROVIDER RESPONSE TEXT: 11/15 punch biopsy taken [...] 3:29 AM DISCH DATE: RESPONDING PROVIDER #: [id number] PROVIDER RESPONSE TEXT: Anemia of chronic disease [...] Prevent/minimize sheer/friction injuries Outcome: Progressing Flowsheets (Taken 11/23/2024 0151) Prevent/minimize sheer/friction injuries: HOB 30 degrees or less Turn/reposition every 2 hours/use positioning/transfer devices Goal: Promote/optimize nutrition Outcome: Progressing Flowsheets (Taken 11/23/2024 015) Promote/optimize nutrition: Monitor/record intake including meals Goal: Promote skin healing Outcome: Progressing Flowsheets (Taken 11/23/2024 015) Promote skin healing: Assess skin/pad under line(s)/device(s) [...] unresponsive to multiple treatments was transferred from [facility] due to gluteal abscess, for which [...] MD Hematology-Oncology Fellow, PGY4 Hematology Consult Pager: [phone] Problem: Skin Goal: Decreased wound size/increased tissue [...] man with refractory hidradenitis supprativa transferred from [facility] on 11/10/24 with worsening chronic gluteal [...] RN Outcome: Progressing Goal: Prevent/manage excess moisture 11/18/2024751 by Lily Mario RN Outcome: Progressing [...] opioid side effects throughout the shift 11/18/2024 0752 by Lily [...] and Palliative Oncology Monday-Monday 8 AM-5 PM [employer] Secure chat or pager [phone]. After hours and weekends: pager [phone] Brief heme note: Kevan La is a 49 y.o. male with PMHx of HS that is refractory and unresponsive to multiple treatments was transferred from [facility] due to gluteal abscess, for which [...] MD Hematology-Oncology Fellow, PGY4 Hematology Consult Pager: [phone] Cosigned by Fransisca Diaz MD at 11/16/2024 [...] time: 1649 Event end time: 1800 Location: [address] [] Triage by phone or secure messaging Rapid response initiated by: [] Rapid response RN [] Family [] Nursing Master Machinist [x] Physician [] RADAR auto page [] Sepsis auto-page [x] RN [] RT [] ASSEMBLER INSULATOR/PA [] Other: Primary reason for call: [] [...] Response Upon arrival to unit, Bedside RN, KENDALR, & Shanti Team @bedside. Patient was a [...] Rapid Response Pager time: [phone] Arrival time: 1510 Event end time: 153 Location: [address] [] Triage by phone or secure messaging Rapid response initiated by: [] Rapid response RN [] Family [] Nursing Master Machinist [] Physician [] RADAR auto page [] Sepsis auto-page [x] RN [] RT [] ASSEMBLER INSULATOR/PA [] Other: Primary reason for call: [] [...] Providers present at bedside (if applicable): SANGEETA Matthewsenter Team Interventions: [] None [] ABG/VBG [] [...] Ryland Win, PGY3 For IR consults, call [phone] (M-F 7a-5p) EMERGENT IR Pager: [phone] (M-F 5p-7a) ([place], [place] 24hr) PATIENT: KEVAN LA : 1975 ADMIT DATE: 11/10/2024 3:29 AM DISCH DATE: RESPONDING PROVIDER #: [id number] PROVIDER RESPONSE TEXT: I agree with foil cutter diagnosis of Moderate malnutrition on 11/11/2024 CDI [...] suppurativa and gluteal abscess. Clinical Indicators: 11/11 Maintenance Shop Clerk consult: "Moderate malnutrition related to acute disease or injury As Evidenced by: meeting < 75% of EER for > 1 week, mild fat loss and muscle wasting and 10.2% weight loss x approximately 3 weeks." 11/11 foil cutter note indicates pt eating poorly at SNF due to poor food quality and receives protein drink only intermittently. BMI 25.93 Treatment: Maintenance Shop Clerk consult recommending regular diet, Ensure Plus QD. Risk Factors: Refractory HS. Gluteal abscess. Eating poorly at SNF. Options provided: -- I agree with foil cutter diagnosis of Moderate malnutrition on 11/11/2024 -- [...] RN Outcome: Progressing 11/12/2024 1051 by Cinthya Stoevr RN Outcome: Progressing 11/12/2024 1045 by Cinthya Stover RN Outcome: Progressing Goal: Turns in bed with improved pain control throughout the shift 11/12/2024 1108 by Cinthya Stover RN Outcome: Progressing 11/12/2024 1051 by Cinthya Stover RN Outcome: Progressing 11/12/2024 1045 by iCnthya Stover RN Outcome: Progressing Goal: Walks with [...] MD PGY-1 General Surgery Acute Care Surgery [id number] The patient's goals for the shift include The clinical goals for the shift include maintain safety Problem: Skin Goal: Prevent/manage excess moisture Outcome: Progressing Flowsheets (Taken 11/12/2024 0338) Prevent/manage excess moisture: Moisturize dry skin Goal: [...] this encounter [facility] Work Phone: 11-26-2024 Nurse Note Wound care [...] this encounter [facility] Work Phone: 11-22-2024 Consult note Associated Order [...] molecule JAK1 inhibitor), who was transferred from [facility] for a worsening of L [...] Vashe wound cleanser ([employer] order # [id number]). Pack with Vashe moistened wet to dry kerlix gauze cover with ABD pad and paper tape. Recommendation: BID for distal edge of growth on distal posterior left thigh. Cover wounds with Vashe wound cleanser ([employer] order #[id number]) soaked 4 x 4 cm sterile gauze for 1-5 minutes, then gently pat dry. Cover draining wounds with 2-3 layers of accordion folded Aquacel Ag then cover with ABD pad and paper tape. (DO not cover growth as it causes the patient discomfort. Recommendations: BID for left lateral hip. Cover wounds with Vashe wound cleanser ([employer] order #[id number]) soaked 4 x 4 cm sterile gauze for 1-5 minutes, then gently pat dry. Apply clindamycin as directed by dermatology. Cover draining wounds with Aquacel Ag (Silver) ([employer] order #[id number]) Cover with Mepilex border dressing. Wound Team Plan: While inpatient, Secure chat with questions or reconsult wound care if condition worsens or changes. For urgent communications please message the group through [employer] messaging at: [facility] Wound Care Team, Thank you. Lori Baires RN, ON 11/22/2024 7:50 PM Associated Order(s): IP CONSULT [...] tentatively arrange follow-up with Dr. Jiang at [facility], pending transport capabilities of eventual SNF - [...] MD Hematology-Oncology Fellow, PGY5 Hematology Consult Pager: [phone] Oncology Consult Pager: [phone] Cosigned by Sreedhar Jiang MD at 11/19/2024 [...] continue his care with our team ([place]- id, [facility]- id, [place]- Dr. Valentino). Associated Order(s): Inpatient consult to [...] integrative heme/onc services. Music therapy, art therapy, bobbin dumper and pet therapy offered to pt, pt [...] 11/08/2024 Patient Name: KEVAN LA : 1975 [facility]#: [id number] Exam Date/Time: 11/08/2024 16:38 Procedure: CT PELVIS [...] extremity venous duplex bilateral Result Date: 10/21/2024 [place] [id number] and Vascular Lab Report [facility] US LOWER EXTREMITY VENOUS DUPLEX BILATERAL Patient Name: KEVAN Miranda Physician: [id number] Viki Colin MD Study Date: 10/21/2024 Ordering [id number] DELGADO Dhillon Physician: THELMA MRN/PID: [id number] Technologist: Javier Dhaliwal T Technologist 2: Date of /Age: 9 1975 years Gender: M Admission Status: Inpatient Location [facility] Performed: Diagnosis/ICD: Pain in left leg-M79.605 CPT Codes: 40471 Peripheral venous duplex scan for DVT complete [...] Spontaneous/Phasic Peroneal Yes None PTV Yes None [id number] Viki Colin MD Final Bedside PICC Imaging [...] anxiety, fatigue, nausea, depression and pain. [facility] Integrative Medicine Symptom Management program offers multi-disciplinary [...] -Music therapy - pt agreeable; consult placed -Parking Cashier - pt agreeable; consult placed -Pet therapy [...] of this patient. TRAVIS Patel (available by [employer]) [facility] Inpatient Integrative Medicine I spent 45 [...] medications to patient prior to discharge via [facility] pharmacy. Prescriptions will need to be sent 48-72 hours prior to discharge so that a prior authorization can be completed. Discharge date: unknown pending acute issues Patient does not qualify for an appointment with Outpatient Supportive Oncology- needs to establish with Oncology outpatient SIGNATURE: TRAVIS Rodas PAGER/CONTACT: Contact information: Supportive and Palliative Oncology Monday-Monday 8 AM-5 PM [employer] Secure chat or pager [phone]. After hours and weekends: pager [phone] Inpatient consult to [facility] Adult Supportive Oncology Consult performed by: TRAVIS Rodas Consult ordered by: Claudio Plunkett MD PALLIATIVE MEDICINE OUTPATIENT PROVIDER: None CURRENT ATTENDING PROVIDER: Claudio Plunkett MD Medical Oncologist: No care child study team director to display Radiation Oncologist: No care child study team director to display Primary Physician: No primary care [...] alone. Has supportive brother and parents in [place], [place]. 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 Social History: reports that he [...] Value Ventricular Rate 77 Atrial Rate 77 IL Interval 146 QRS Duration 108 QT Interval 368 QTC Calculation(Bazett) 416 P [place] 55 R [place] 72 T [place] 66 QRS Count 13 Q Onset 211 [...] limitations due to pain Joys/meaning/strength: Family and [facility] Understanding of health: Demonstrates good prognostic understanding [...] of shared electronic medical record/secure chat/email or [id number]. We will continue to follow. Please contact us for additional questions or concerns. SIGNATURE: TRAVIS Rodas PAGER/CONTACT: Contact information: Supportive and Palliative Oncology Monday-Monday 8 AM-5 PM [employer] Secure chat or pager [phone]. After hours and weekends: pager [phone] Associated Order(s): IP CONSULT TO HEMATOLOGY Name: [...] unresponsive to multiple treatments was transferred from [facility] due to gluteal abscess, for which [...] Perry Baires 10/10/2024 5:20 PM Dictation workstation: [id number] === 10/10/24 === CT PELVIS W IV [...] as stated. This study was interpreted at [facility], [place], [place] Signed by: Beronica Valentin 10/10/2024 11:03 PM Dictation workstation: [id number] Assessment/Plan Kevan La is a 49 y.o. male with PMHx of refractory HS that is unresponsive to multiple treatments was transferred from [facility] due to left gluteal randell abscess, [...] MD Hematology-Oncology Fellow, PGY4 Hematology Consult Pager: [phone] Cosigned by Fransisca Diaz MD at 11/15/2024 [...] Patient was then brought from SNF to [facility] on 11/08 due to concern for worsening L buttock and gluteal HS and possible sepsis. Patient was placed on vanc/zosyn for sepsis; wound and blood cx collected at that time show NGTD. CT scan from [facility] revealed large ulcerative wound in [...] Bacteria 10/10/24 Blood culture from Peripheral Venipuncture Slache puentesa S S S S S 10/10/24 [...] -Recommend consulting IR to evaluate abscess drainage Judithfatoumatadillan Paulette, MS4 Reviewed by Mohan Sales Infectious Diseases [...] molecule JAK1 inhibitor), who was transferred from [facility] for a worsening of L [...] Vashe wound cleanser ([employer] order # [id number]). Pack with Vashe moistened wet to dry [...] with Vashe wound cleanser ([employer] order #[id number]) soaked 4 x 4 cm sterile gauze for 1-5 minutes, then gently pat dry. Cover draining wounds with 2-3 layers of accordion folded Aquacel Ag then cover with ABD pad and paper tape. (DO not cover growth as it causes the patient discomfort. Wound location: Lateral Left hip Recommendations: BID Cover wounds with Vashe wound cleanser ([employer] order #[id number]) soaked 4 x 4 cm sterile gauze for 1-5 minutes, then gently pat dry. Apply clindamycin as directed by dermatology. Cover draining wounds with Aquacel Ag (Silver) ([employer] order #[id number]) Cover with Mepilex border dressing. Wound Team [...] molecule JAK1 inhibitor), who was transferred from [facility] for a worsening of L [...] Per IM notes: Patient last admitted at [facility] 10/11 - 10/23/2024 for a similar complaint [...] was discharged with PICC line to [facility] with plan to follow-up with Dermatology 11/12/2024 for HS-301 trial medication. On 11/08/2024 the patient was sent to [facility] from [facility] for possible sepsis. On arrival to the [...] his stay and he was transferred to [facility] for further care. The patient was seen [...] He was able to tolerate food at [facility]. Patient notes he has been bedbound for some time now, since at least 06/2023 which he attributes to weakness in his legs/feet." HS history: He reports a history of HS from 2016. Previous therapies include doxycycline, minocycline, isotretinoin, clindamycin/rifampin, Humira, Remicade, staph decolonization for mupirocin, moxifloxacin/metronidazole, and apremilast. He was being treated by [facility]. Pt reports that he [...] cultures. Will follow cultures already obtained at [facility] and will obtain tissue culture [...] of left gluteal disease. Pt transferred from [facility] with worsened pain, swelling and [...] , Vit B12: No results found for: [id number] Nutrition Specific Medications: Scheduled medications acetaminophen, 975 [...] Order(s): IP CONSULT TO ACUTE CARE SURGERY [facility] ACUTE CARE SURGERY - HISTORY AND PHYSICAL / CONSULT Patient Name: Kevan La Admit Date: [id number] : 1975 AGE: 49 y.o. GENDER: male TODAY'S ASSESSMENT AND PLAN OF CARE: 49 year old male with significant history of hidradenitis suppurativa, who recently underwent I&D with acute care surgery on 10/13, was transferred from [facility] with concern of a gluteal fluid collection. Acute care surgery was consulted for consideration of repeat I&D. Patient is currently hemodynamically stable. - No emergent surgical intervention indicated at this time. Will need to review imaging for possible mass vs infection before potential surgical intervention. Radiology imaging request sent for CT pelvis from [facility]. if not able to transfer imaging from [facility], may need repeat CT scan. Tadeo Cano MD PGY 5 General Surgery Acute Care Surgery [id number] CHIEF COMPLAINT/REASON FOR CONSULT: 49 year old male with significant history of hidradenitis suppurativa, who recently underwent I&D with acute care surgery on 10/13, was transferred from [facility] with concern of a gluteal fluid collection. Acute care surgery was consulted for consideration of repeat I&D. Briefly this patient has a history of refractory HS and did not respond to multiple lines of treatment. He was admitted to [facility] between 10/11-10/23 and underwent I&D on 10/13 for infection control. He had positive blood culture and was on antibiotics. He was eventually discharged to SNF. On 11/08 patient was brought to [facility] for concern of sepsis. He [...] Need to review most recent CT from [facility] for comparison, radiology request sent. [...] of left gluteal disease. Pt transferred from [facility] with worsened pain, swelling and [...] notable for wbc 11.8. CT report from [facility] notes concern for a 15cm enhancing gluteal mass however images not available. We have requested images from [facility] and will evaluate these prior to determining whether further drainage or biopsy are needed. Eitan Muhammad MD Trauma, Critical Care, and Acute Care Surgery Pager: [phone] Associated Order(s): Inpatient consult to Endocrinology Inpatient [...] 2/2 NSAIDs use for HS?, returning to [facility] 11/10/2024 as a transfer from [facility] regarding 14cm gluteal fluid collection. Notably the patient was recently admitted to [facility] 10/11 - 10/23/2024 for a similar complaint, imaging showed showed worsening infection in L. gluteus randell with serpiginous fluid pockets c/w abscess (9.2 x 5.7 x 13.2cm). He was started on broad spectrum iv antibiotics , underwent I&D with ACS on 10/13 c/b arterial bleed which was stitched. He was discharged with PICC line to [facility] with plan to follow-up with Dermatology 11/12/2024 for HS-301 trial medication. On 11/08/2024 the patient was sent to [facility] from [facility] for possible sepsis. On arrival to the [...] his stay and he was transferred to [facility] for further care. The patient was seen [...] He was able to tolerate food at [facility]. Patient notes he has [...] weeks since he was transferred to the group home Denies any chest pain, shortness of breath, [...] was not receiving any PT at the group home. He also mentioned that his activity level [...] medications: naloxone, ondansetron, oxyCODONE, vancomycin -11/10/24: Ionized Amada 1.69 Latest Reference Range & Units 10/17/24 [...] 2/2 NSAIDs use for HS?, returning to [facility] 11/10/2024 as a transfer from [facility] regarding 14cm gluteal fluid collection. Endocrinology [...] MD Endocrinology fellow, PGY 5 Endocrinology pager [phone], secure message 8 AM to 5 PM. Cosigned by eBe Raymond MD at 11/11/2024 8:59 AM EST [...] on 11/10/2024 Exposure target: AUC24 (range)400-600 mg/L.hr AXR99-70: 380 mg/L.hr AUC24,ss: 507 mg/L.hr Probability of AUC24 > 400: 76 % Follow-up level tomorrow morning. Will continue to monitor renal function daily while on vancomycin and order serum creatinine at least every 48 hours if not already ordered. Follow for continued vancomycin needs, clinical response, and signs/symptoms of toxicity. Long Swain PharmD documented in this encounter [facility] Work Phone: 11-15-2024 Procedure note Associated Ord er(s): Biopsy Post-Procedure Diagnose(s): Skin lesion Biopsy Date/Time: 11/15/2024 11:31 AM Performed by: Brigitte Coy MD Authorized by: Lauri Mesa MD Consent: Consent obtained: Verbal Consent given by: Patient Risks, benefits, and alternatives were discussed: yes Risks discussed: Bleeding, infection, pain and poor cosmetic result Alternatives discussed: No treatment [place] protocol: Procedure explained and questions answered to [...] poor cosmetic result Alternatives discussed: No treatment [place] protocol: Procedure explained and questions answered to [...] this encounter [facility] Work Phone: 11-10-2024 History and physical note History Of Present Illness Kevan La is a 49 y.o. male with refractory hidradenitis supprativa (HS) not responding to povorcitinib (RCT candidate), apremilast, isotretinoin, adalimumab, infliximab, moxifloxacin/metronidazole, minocyclin, clindamycin, rifampin, augmentin and doxycycline, returning to [facility] 11/10/2024 as a transfer from [facility] regarding 14cm gluteal fluid collection. Notably the patient was recently admitted to [facility] 10/11 - 10/23/2024 for a similar complaint [...] was discharged with PICC line to [facility] with plan to follow-up with Dermatology 11/12/2024 for HS-301 trial medication. On 11/08/2024 the patient was sent to [facility] from [facility] for possible sepsis. On arrival to the [...] his stay and he was transferred to [facility] for further care. The patient was seen [...] He was able to tolerate food at [facility]. Patient notes he has [...] Comfortable appearing older male in bed in [facility] HEENT: MMM, EOMI, PERRLA Pulm: CTAB, no [...] Alb 2.5 A1c 11/08/2024: 5.2 UA 11/08/2024: [place] CT Pelvis 11/08/2024: There is a large [...] clindamycin, rifampin, augmentin and doxycycline, returning to [facility] 11/10/2024 as a transfer from [facility] regarding 14cm gluteal fluid collection. He [...] on last admission, 1.48 on admission to [facility] 11/08 > 1.42, prior Cr [...] this encounter [facility] Work Phone: 11-09-2024 Note Internal Medicine: M [...] a 49 y.o. male that presented to [facility] on 11/08/2024 and was admitted for wound check. Patient arrived to [facility] from SNF fro possible sepsis related to [...] here. Decision was to transfer patient to [facility] for further care. Of note, patient has [...] to Address at Followup Visit: Not Applicable [facility] 11-09-2024 Hospital course Narrative Internal [...] a 49 y.o. male that presented to [facility] on 11/08/2024 and was admitted for wound check. Patient arrived to [facility] from SNF fro possible sepsis related to [...] here. Decision was to transfer patient to [facility] for further care. Of note, patient has [...] 9:40 PM EST documented in this encounter [facility] 11-09-2024 Nurse Note transfer center called, stated still no bed are available but checking on if any changes in pt condition. Updated vitals given and isolation status confirmed. Enrique at the transfer center given unit phone number and he stated they will reach out when bed available. [facility] 11-09-2024 Nurse Note transfer center called, stated still no bed are available but checking on if any changes in pt condition. Updated vitals given and isolation status confirmed. Enrique at the transfer center given unit phone number and he stated they will reach out when bed available. documented in this encounter [facility] 11-09-2024 Plan of care note Problem: [...] My discharge needs are met Outcome: Progressing [facility] 11-09-2024 Miscellaneous Notes Problem: Knowledge Deficit [...] met Outcome: Progressing documented in this encounter [facility] 11-09-2024 History of Present illness Narrative [...] creatinine, and vancomycin levels interfaced automatically to [employer] and data has been analyzed and interpreted. [...] chart review patient will be transferred to [facility] for further care, currently waiting for bed [...] 16.4* ABGs: No results for input(s): "PHART", "LKX7SSF", "PO2ART", "PDU8OTJ", "SO2ART", "U2REYJYB" in the last 72 hours. Lactic Acid: [...] to Discharge: [facility] [facility] for further care, currently waiting for bed assignment. Patient has been receiving care at including clinical trial medications for his hidradenitis suppurativa. - Goals of Care: FULL CODE - DVT Prophylaxis: Lovenox 40 q24hr - CrCl >30 - GI Prophylaxis: Protonix daily - Diet: NPO Cosigned by Paulino Larios MD at 11/09/2024 1:50 PM EST documented in this encounter [facility] [email or web address] 11-09-2024 Note Pharmacy to Dose Van comycin - Progress Note Lab Results Component Value Date CREATININE 1.42 (H) 11/09/2024 BUN 19 11/09/2024 WBC 13.0 (H) 11/09/2024 Doses, serum creatinine, and vancomycin levels interfaced automatically to [employer] and data has been analyzed and interpreted. [...] DATE: 11/09/24 TIME: 8:58 AM Kristy Ferguson [facility] Clinical Pharmacist Available via [employer] [facility] 11-09-2024 Note Med Team Progress No delfino Kevan La : 1975(49 y.o.) Date: November [...] chart review patient will be transferred to [facility] for further care, currently waiting for bed [...] 16.4* ABGs: No results for input(s): "PHART", "AJJ1MCQ", "PO2ART", "YXH3YLT", "SO2ART", "A4WVVTYG" in the last 72 hours. Lactic Acid: [...] count of 634 (more content not included)... [facility] 11-09-2024 Emergency department Note This RN spoke to Enrique at [facility] for patient update. He stated that they are currently waiting for a bed assignment for the patient at [facility] 11-09-2024 Emergency department Note This RN spoke to Enrique at [facility] for patient update. He stated that they are currently waiting for a bed assignment for the patient at [facility] Provider messaged about BP and MAP Provider [...] Received from [facility] Overall Financial Resource Strain (CARDIA) Difficulty of Paying Living Expenses: Somewhat hard Food Insecurity: Food Insecurity Present (10/11/2024) Received from [facility] Hunger Vital Sign Worried About Running Out of Food in the Last Year: Sometimes true Ran Out of Food in the Last Year: Sometimes true Transportation Needs: No Transportation Needs (10/12/2024) Received from [facility] PRAPARE - Transportation Lack of Transportation (Medical): No Lack of Transportation (Non-Medical): No Intimate Partner Violence: Not At Risk (10/11/2024) Received from [facility] Humiliation, Afraid, Rape, and Kick questionnaire Fear of Current or Ex-Partner: No Emotionally Abused: No Physically Abused: No Sexually Abused: No Housing Stability: Low Risk (10/12/2024) Received from [facility] Housing Stability Vital Sign Unable to Pay for Housing in the Last Year: No Number of Times Moved in the Last Year: 1 Homeless in the Last Year: No Recent Concern: Housing Stability - High Risk (09/17/2024) Received from [facility] Housing Stability Vital Sign Unable to Pay [...] Procedure Abnormality Status --------- ------ Culture, Aerobic Bacteri...[[id number]] Anaerobic culture[[id number]] Please view results for these tests on the individual orders. CULTURE, AEROBIC BACTERIA WITH GRAM STAIN CULTURE ANAEROBIC CBC WITH AUTO DIFFERENTIAL COMPREHENSIVE METABOLIC PANEL LACTIC ACID WITH REFLEX COMPLETE URINALYSIS WITH REFLEX TO CULTURE Narrative: The following orders were created for panel order Urinalysis Complete with reflex to Culture. Procedure Abnormality Status --------- ------ Complete Urinalysis[[id number]] Please view results for these tests on [...] Medicine Provider Juvenal Fierro MD Resident 11/08/24 5186 Cosigned by Fer Kennedy MD at 11/08/2024 6:55 PM EST Emergency Department Encounter [facility] EMERGENCY DEPT Patient: Kevan La : 1975 [...] pressure and wound check. Patient coming from [facility] for possible sepsis. Patient has chronic [...] for clarification.) Fer Kennedy MD Acute Care [facility] Fer Kennedy MD 11/08/24 7402 documented in this encounter [facility] 11-08-2024 Consult note Formatting of th [...] creatinine, and vancomycin levels interfaced automatically to [employer] and data has been analyzed and interpreted. [...] PharmD Clinical Pharmacist Available via Secure [employer] [facility] 11-08-2024 Consult note Formatting of th [...] creatinine, and vancomycin levels interfaced automatically to [employer] and data has been analyzed and interpreted. [...] via Secure Chat documented in this encounter [facility] 11-08-2024 Emergency department Note Provider messaged about BP and MAP [facility] 11-08-2024 Emergency department Note Provider messaged about orders [facility] 11-08-2024 History and physical note Internal Medicine: Med Team Initial History and Physical Kevan La : 1975(49 y.o.) Date: November 08, 2024 TEAM: Isidro Attending: Dr. Larios Subjective: Chief Complaint: Wound Check HPI Kevan La is a 49 y.o. male with PMH chronic hidradenitis suppurativa that presented to [facility] on 11/08/2024 from [facility]. Patient was seen at for severe at [...] follow-up with dermatology 11/12/2024. Patient arrived to [facility] ED from [facility] for possible sepsis related to chronic hidradenitis affecting mostly his left hip and going down into his left thigh. At [facility] nurse noted that his wounds were draining [...] 16.5* ABGs: No results for input(s): "PHART", "VNY8GFB", "PO2ART", "VNH8HTW", "SO2ART", "E1DQBHQW" in the last 72 hours. Lactic Acid: [...] nowOverweight (BMI 25-29.9) - Disposition: Admit to [facility]. - Given the signs and symptoms [...] care. - he is well-known at in [place], and they will accept transfer of the pt when a bed is available. [facility] 11-08-2024 Note Attestation signed by Paulino [...] care. - he is well-known at in [place], and they will accept transfer of the pt when a bed is available. Internal Medicine: Med Team Initial History and Physical Kevan La : 1975(49 y.o.) Date: November 08, 2024 TEAM: Isidro Attending: Dr. Larios Subjective: Chief Complaint: Wound Check HPI Kevan La is a 49 y.o. male with PMH chronic hidradenitis suppurativa that presented to [facility] on 11/08/2024 from SNF. Patient was seen [...] follow-up with dermatology 11/12/2024. Patient arrived to [facility] ED from [facility] for possible sepsis related to chronic hidradenitis affecting mostly his left hip and going down into his left thigh. At [facility] nurse noted that his wounds were draining [...] 1900 BP: 76/ (more content not included)... [facility] 11-08-2024 History and physical note Internal Medicine: Med Team Initial History and Physical Kevan La : 1975(49 y.o.) Date: November 08, 2024 TEAM: Isidro Attending: Dr. Larios Subjective: Chief Complaint: Wound Check HPI Kevan La is a 49 y.o. male with PMH chronic hidradenitis suppurativa that presented to [facility] on 11/08/2024 from SNF. Patient was seen [...] twice daily until arrival to ED today 12/21. Patient follows with dermatology. On admission patient was being trialed on at bedtime-301 trial medication for at bedtime. Per Derm recommendation trial medication was stopped. Patient is a stress is not responsive to povorcitinib (RCT candidate), apremilast, isotretinoin, adalimumab, infliximab, moxifloxacin/metronidazole, minocyclin, clindamycin, rifampin, augmentin and doxycycline. Patient to follow-up with dermatology 11/12/2024. Patient arrived to [facility] ED from [facility] for possible sepsis related to chronic hidradenitis affecting mostly his left hip and going down into his left thigh. At [facility] nurse noted that his wounds were draining [...] Not on File Objective: Vitals: 11/08/24 1830 02/21/184411/08/24 18411/08/24 1900 BP: 76/52 92/65 92/65 92/65 Pulse: [...] 16.5* ABGs: No results for input(s): "PHART", "LGL6UDA", "PO2ART", "AVF8NOI", "SO2ART", "O1WBUDXP" in the last 72 hours. Lactic Acid: [...] nowOverweight (BMI 25-29.9) - Disposition: Admit to [facility]. - Given the signs and symptoms [...] care. - he is well-known at in [place], and they will accept transfer of the pt when a bed is available. documented in this encounter [facility] 11-08-2024 Emergency department Note Patient requested pain medication and dinner. This nurse messaged provider [facility] 11-08-2024 Emergency department Note Patient is aware of patients BP and MAP. [facility] 11-08-2024 Emergency department Note Liter of NS hung for systolic of 88. IV obtained with blood work and first set of cultures. Will notify doctor of BP. [facility] 11-08-2024 Physician Emergency department Note EMERGENCY [...] Received from [facility] Overall Financial Resource Strain (CARDIA) Difficulty of Paying Living Expenses: Somewhat hard Food Insecurity: Food Insecurity Present (10/11/2024) Received from [facility] Hunger Vital Sign Worried About Running Out of Food in the Last Year: Sometimes true Ran Out of Food in the Last Year: Sometimes true Transportation Needs: No Transportation Needs (10/12/2024) Received from [facility] PRAPARE - Transportation Lack of Transportation (Medical): No Lack of Transportation (Non-Medical): No Intimate Partner Violence: Not At Risk (10/11/2024) Received from [facility] Humiliation, Afraid, Rape, and Kick questionnaire Fear of Current or Ex-Partner: No Emotionally Abused: No Physically Abused: No Sexually Abused: No Housing Stability: Low Risk (10/12/2024) Received from [facility] Housing Stability Vital Sign Unable to Pay for Housing in the Last Year: No Number of Times Moved in the Last Year: 1 Homeless in the Last Year: No Recent Concern: Housing Stability - High Risk (09/17/2024) Received from [facility] Housing Stability Vital Sign Unable to Pay [...] Procedure Abnormality Status --------- ------ Culture, Aerobic Bacteri...[[id number]] Anaerobic culture[[id number]] Please view results for these tests on the individual orders. CULTURE, AEROBIC BACTERIA WITH GRAM STAIN CULTURE ANAEROBIC CBC WITH AUTO DIFFERENTIAL COMPREHENSIVE METABOLIC PANEL LACTIC ACID WITH REFLEX COMPLETE URINALYSIS WITH REFLEX TO CULTURE Narrative: The following orders were created for panel order Urinalysis Complete with reflex to Culture. Procedure Abnormality Status --------- ------ Complete Urinalysis[[id number]] Please view results for these tests on [...] Medicine Provider Juvenal Fierro MD Resident 11/08/24 6102 Cosigned by Fer [facility] MD at 11/08/2024 6:55 PM EST [employer] Phone: 11-08-2024 Physician Emergency department Note Emergency Department Encounter [facility]PT Patient: Kevan La : 1975 [...] pressure and wound check. Patient coming from [facility] for possible sepsis. Patient has chronic [...] for clarification.) Fer Kennedy MD Acute Care [facility] Fer Kennedy MD 11/08/24 9659 [place] Work Phone: 10-23-2024 Nurse Note Transport forgot paper chart- all chart information, including script faxed to [facility]- fax #[phone] ATTENTION : NURSE MAGNUS This nurse called report to Magnus RN at [facility]-the facility of choice by patient. Patient leaving with PICC in place in [facility] dated 10/20/24. Script for pain [...] this encounter [facility] Work Phone: 10-23-2024 Miscellaneous Notes Problem: Pain [...] rifampin, augmentin and doxycycline. He came to [facility] ED with severe HS and associated deep [...] Nephropathy - Cr 1.69 on admission - intermediate accountant NSAID use for HS, most recently was [...] rifampin, augmentin and doxycycline. He came to [facility] ED with severe HS and associated deep [...] Nephropathy - Cr 1.69 on admission - intermediate accountant NSAID use for HS, most recently was [...] Labs, ECG/Telemetry: Yes Risks/Benefits/Alternatives Discussed with Patient/POA/Legal Group Billing Coordinator: Yes Stop Sign on Door: Yes Time [...] Yes Tip Location:SVC Line Confirmation: ECG Lot #:[id number] Passenger Service Representative: Bard PICC Line Exp Date:07/18/2025 Securement: Stat Lock Post Procedure Checklist: Handoff with RN; Obtain all new IV tubing prior to use; Bed at lowest level and wheels locked; Line discharge information at bedside. Additional Details: Line was inserted using Modified Seldinger's Technique. Placed by: Shreya Bailey RN-[facility] Associated Problem(s): Abscess Kevan La is a 49 y.o. male with refractory hidradenitis supprativa (HS) not responding to povorcitinib (RCT candidate), apremilast, isotretinoin, adalimumab, infliximab, moxifloxacin/metronidazole, minocyclin, clindamycin, rifampin, augmentin and doxycycline. He came to [facility] ED with severe HS and associated deep [...] Nephropathy - Cr 1.69 on admission - retirement NSAID use for HS, most recently was [...] of protein and daily nutrients to also screen tender helper in healing. Problem: Pain - Adult [...] rifampin, augmentin and doxycycline. He came to [facility] ED with severe HS and associated deep [...] Nephropathy - Cr 1.69 on admission - retirement NSAID use for HS, most recently was [...] rifampin, augmentin and doxycycline. He came to [facility] ED with severe HS and associated deep [...] Nephropathy - Cr 1.69 on admission - retirement NSAID use for HS, most recently was [...] rifampin, augmentin and doxycycline. He came to [facility] ED with severe HS and associated deep [...] Updates 10/17: -Blood culture 10/10 with slacynthiaia dhavala in addition to other prior culture [...] Nephropathy - Cr 1.69 on admission - intermediate accountant NSAID use for HS, most recently was [...] rifampin, augmentin and doxycycline. He came to [facility] ED with severe HS and associated deep [...] Nephropathy - Cr 1.69 on admission - retirement NSAID use for HS, most recently was on home ibuprofen - Hold home ibuprofen - UA unremarkable - CT A/P no hydronephrosis or renal abnormality - Avoid nephrotoxic drug, hypotension, sepsis, dehydration - Continuing to endorse oral hydration Fluid: PRN Electrolyte: PRN Diet: regular DVT prophylaxis: SCD, UFH Code status: FULL CODE NOK: Omkar Pradoclifford (brother, ) Called by nurse to evaluate [...] Cabrera MD PGY1 Acute Care Surgery Pager [phone] The patient's goals for the shift include [...] rifampin, augmentin and doxycycline. He came to [facility] ED with severe HS and associated deep [...] Nephropathy - Cr 1.69 on admission - retirement NSAID use for HS, most recently was [...] rifampin, augmentin and doxycycline. He came to [facility] ED with severe HS and associated deep [...] 1.69 on admission (1.44 on 09/13/2024) - intermediate accountant NSAID use for HS, most recently was [...] next dressing change Outcome: Progressing Flowsheets (Taken 10/14/2024 05) Decreased wound size/increased tissue granulation at next [...] Prevent/minimize sheer/friction injuries Outcome: Progressing Flowsheets (Taken 10/14/2024 0539) Prevent/minimize sheer/friction injuries: Increase activity/out of bed [...] rifampin, augmentin and doxycycline. He came to [facility] ED with severe HS and associated deep [...] 1.69 on admission (1.48 on 09/12/2024) - intermediate accountant NSAID use for HS, most recently was [...] Thierno Chavis MD PGY-2 General Surgery ACS [id number] Rapid Response Nurse Note: RADAR alert: 6 Pager time: 112 Arrival time: 112 Event end time: 1156 Location: 2075 [] Triage by phone or secure messaging Rapid response initiated by: [] Rapid response RN [] Family [] Nursing Master Machinist [] Physician [x] RADAR auto page [] Sepsis auto-page [] RN [] RT [] ASSEMBLER INSULATOR/PA [] Other: Primary reason for call: [] [...] Note Date: 10/10/2024 - 10/13/2024 OR Location: [facility] OR Name: Keavn La, : 1975, Age: 49 y.o., , Sex: male Diagnosis Pre-op Diagnosis * Hidradenitis suppurativa [L73.2] Post-op Diagnosis * Hidradenitis suppurativa [L73.2] Procedures INCISION AND DRAINAGE, THIGH 66755 - IL I&D DEEP ABSC BURSA/HEMATOMA THIGH/KNEE REGION Surgeons * Momo Dougherty - Primary Resident/Fellow/Other Bottom Loader: Surgeons and Role: * Thierno Chavis MD - Resident - Assisting Staff: Exploration Geologist: Magda Scrub Person: Mack Anesthesia Staff: Anesthesiologist: Kristy Clarke MD Concrete Polisher: Chelle Singh MD Procedure Summary Anesthesia: General [...] FUNGAL CULTURE/SMEAR, TISSUE/WOUND CULTURE/SMEAR Momo Dougherty MD 10/13/2024911 Date of Surgery 10/13/24 Pre-op diagnosis: Left [...] not make progress toward the following goals. [facility] Clinical Update: After further conversation patient has decided to pursue surgical drainage of left sided fluid collection. Will plan for OR 10/13 pending operating room availability. Please make patient NPO @MN. Will obtain consent in AM. D/w Dr. Ladonna Chavis MD PGY-2 Gen Surg ACS [id number] Cosigned by Momo Dougherty MD at 10/13/2024 [...] rifampin, augmentin and doxycycline. 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 He came to [facility] ED with severe HS and associated deep [...] this encounter [facility] Work Phone: 10-22-2024 History of Present illness Narrative 10/22/24 1536 Discharge Planning Expected Discharge Disposition SNF ([facility]) What day is the transport expected? 10/23/24 What time is the transport expected? 1400 Transport confirmed via [facility] [phone]), N2N # [phone], 100 cabrera. Medical team, pt's RN, and resource RN aware. Kevan La is a 49 y.o. male on day 11 of admission presenting with Gluteal abscess. Pt is medically ready. TCC confirmed with pt that he is agreeable to [facility] if able to accept as they are possibly the only accepting SNF at this time with a pending Medicaid #. 1538-Per HRS, pt's pending Medicaid # is [id number]. [facility] also sent [facility] pt's Medicaid application as requested. 1544-[facility] confirmed 7000 completed and able to accept pt. TCC will work on transport. Physical Therapy Physical Therapy Treatment Patient Name: Kevan La Department: [place] [address] Room: Today's Date: 10/22/2024 Time Calculation Start [...] on L buttocks while sitting Outcome Measures: [facility] Basic Mobility Turning from your back [...] rifampin, augmentin and doxycycline. 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 Potential Barriers: Pending facility acceptance ADOD: 10/23/24 [...] rifampin, augmentin and doxycycline. 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 Pt is interested in [facility] (able to accept) and [facility] (interested). [facility] will contact pt to complete a Medicaid questionnaire and awaiting [facility] liaison to review. Plan to follow up with SNFs on Monday. Also, plan to follow up with HRS to obtain a pending Medicaid number. sample coordinator will continue to follow for discharge planning needs. Aida Sommer MSN, RN- Transitional Research Staff Member (TCC) [phone] Vancomycin Dosing by Pharmacy- Cessation of Therapy [...] (Rehab/SNF/etc) Type of Post Acute Facility Services longterm Expected Discharge Disposition SNF Per Ritika Malik [facility] confirmed they are able to accept pt with pending Medicaid number, [facility], [facility] and [facility] SNF's are still reviewing. Update on acceptance requested from the reviewing SNF's, all SNF's were updated pt will discharge on IV Vanco every 12 hours + IV Unasyn every 6 hours with wound care BID. Pt was updated regarding the accepting SNF, and 4 reviewing SNF's, he stated he will look into these facilities and provide FOC tomorrow. Pt will need pending [place] Medicaid number and 7000 form prior to discharge. Care Transitions team will continue to follow for discharge planning needs. Lorenza Morales RN Transitional Research Staff Member (TCC) [phone] or [phone] Vancomycin Dosing by Pharmacy- FOLLOW UP Kevan [...] on 10/19/2024 Exposure target: AUC24 (range)400-600 mg/L.hr WKS35-35: 447 mg/L.hr AUC24,ss: 474 mg/L.hr Probability of [...] ID Fellow. For new consults, contact pager [phone]. EPIC chat preferred. Ivette Pina MD I [...] rifampin, augmentin and doxycycline. 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 He came to [facility] ED with severe HS and associated deep [...] recommendations. Updates 10/18: -Blood culture 10/10 with shanthickia exmohindera in addition to other prior culture [...] Nephropathy - Cr 1.69 on admission - retirement NSAID use for HS, most recently was [...] 40 minutes in professional medical decision making, dfcn-ue-vvno examination and counseling, care coordination, chart review, [...] choice. Pt made choices as follows. 1st [facility] 2nd [facility] 3rd [facility] and 4th [facility]. Referrals made via [employer]. [id number] This TCC followed up with pt that none of the facilities accepted the pt.Pt agreeable for blanket referral to be made to see who can accept pending medicaid number and then pt can choose from those facilities. [place] referral made. TCC to follow up with discharge planning. Usman Spann PRN, TCC [phone] [email or web address] Kevan La is a 49 [...] non tender, no organomegaly was appreciated. +BS. 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 No gross focal deficits appreciated. [...] Results from last 72 hours Lab Units 10/17/24192510/17/24 0811 10/16/24 0732 ALK PHOS U/L -- [...] 10/10/24 Blood culture from Peripheral Venipuncture Slackia exmohindera S S S S S 10/10/24 Blood [...] ID Fellow. For new consults, contact pager [phone]. EPIC chat preferred. I saw and evaluated [...] final ID reccs for abx. Payer: no insurance-[facility] can accept for [place] Medicaid Status: inpatient Discharge disposition: ?SNF-If IV abx and wound needed Potential Barriers: no insurance ADOD: 10/18 7310-[facility] spoke to pt about possible DC plans. Pt states he would be agreeable to go to a SNF that accepts a pending Medicaid # for wound care and if IV abx is needed. 3584-[facility] requested a pending Medicaid # from [facility]-medical team updated. [facility] ACUTE CARE SURGERY - PROGRESS [...] Surg Acute Care Surgery Service Team Pager: [phone] CHIEF COMPLAINT / EVENTS LAST 24HRS / [...] on 10/17/2024 Exposure target: AUC24 (range)400-600 mg/L.hr OLY21-96: 443 mg/L.hr AUC24,ss: 447 mg/L.hr Probability of [...] 12 hours. Exposure target: AUC24 (range)400-600 mg/L.hr NLL87-26: 443 mg/L.hr AUC24,ss: 448 mg/L.hr Probability of [...] rifampin, augmentin and doxycycline. 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 He came to [facility] ED with severe HS and associated deep [...] Nephropathy - Cr 1.69 on admission - retirement NSAID use for HS, most recently was [...] 40 minutes in professional medical decision making, ytfc-li-iqea examination and counseling, care coordination, chart review, discussions with consultants, and care planning [facility] ACUTE CARE SURGERY - PROGRESS [...] PGY1 Acute Care Surgery Service Team Pager: [phone] CHIEF COMPLAINT / EVENTS LAST 24HRS / [...] of admission presenting with Gluteal abscess. Per [facility], "patient has been screened from a previous date of service and accepted for possible [place] Medicaid. We are pending copies of his paystubs and will continue to follow up with him to obtain." [facility] states for TCC to notify them on the day of discharge and they will send a letter to [facility] so pt can receive his medications. Medical team aware. 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 Learner: [...] 10:46 AM Connie Thomas OT Rehab Office: [phone] Physical Therapy Physical Therapy Evaluation Patient Name: Kevan La Department: [place] [address] [facility] Today's Date: 10/15/2024 Time Calculation Start Time: [...] as evidenced by functional mobility Outcome Measures: [facility] Basic Mobility Turning from your back [...] at 10:09 AM - Doris Guzman PT [facility] ACUTE CARE SURGERY - PROGRESS [...] PGY1 Acute Care Surgery Service Team Pager: [phone] CHIEF COMPLAINT / EVENTS LAST 24HRS / [...] rifampin, augmentin and doxycycline. 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 He came to [facility] ED with severe HS and associated deep [...] 1.69 on admission (1.44 on 09/13/2024) - retirement NSAID use for HS, most recently was [...] on 10/14/2024 Exposure target: AUC24 (range)400-600 mg/L.hr QXQ83-95: 425 mg/L.hr AUC24,ss: 416 mg/L.hr Probability of [...] response, and signs/symptoms of toxicity. Maria G Villalba, PharmD [facility] ACUTE CARE SURGERY - PROGRESS [...] Maurice Chavis MD PGY-2 Gen Surg ACS [id number] CHIEF COMPLAINT / EVENTS LAST 24HRS / [...] rifampin, augmentin and doxycycline. 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 N Transportation Needs In the [...] 10/15 at 1:30pm with Sharron Flaherty at ([phone]) PHARMACY: [facility] [place]: denies EQUIPMENT USED [...] rifampin, augmentin and doxycycline. He came to [facility] ED with severe HS and associated deep [...] 1.69 on admission (1.48 on 09/12/2024) - retirement NSAID use for HS, most recently was [...] on 10/12/2024 Exposure target: AUC24 (range)400-600 mg/L.hr MMT25-87: 465 mg/L.hr AUC24,ss: 514 mg/L.hr Probability of [...] and signs/symptoms of toxicity. Arianna Mir PharmD [facility] ACUTE CARE SURGERY - PROGRESS [...] [place] and we will consent in AM. [facility] [id number] CHIEF COMPLAINT / EVENTS LAST 24HRS / [...] proximal left thigh. Assessment & Plan Kevan Kudray is a 49 y.o. male with refractory hidradenitis supprativa (HS) not responding to povorcitinib (RCT candidate), apremilast, isotretinoin, adalimumab, infliximab, moxifloxacin/metronidazole, minocyclin, clindamycin, rifampin, augmentin and doxycycline. He came to [facility] ED with severe HS and associated deep [...] 1.69 on admission (1.48 on 09/12/2024) - retirement NSAID use for HS, most recently was [...] for Hidradenitis suppurativa. Pharmacy reviewed the patient's wiovo-dn-pvprhuezn medications and allergies for accuracy. Medications ADDED: Ibuprofen Ferrous sulfate Vitamin D3 Medications CHANGED: none Medications REMOVED: none The list below reflects the updated COOLER ROOM WORKER list. Prior to Admission Medications Prescriptions Last Dose Informant Study STOP-HS1 [id number] povorcitinib 45mg or 75mg tablet 10/10/2024 Morning [...] Allergies Patient accepts M2B at discharge. Sources: [facility] Pharmacy dispense history Patient interview Moderate historian Chart Review ID note from 09/24 Dermatology note from 09/30 Care Everywhere Additional Comments: Pt states that many pain medications are ineffective would like something prior to being discharge Connie Choi PharmD Transitions of Care Pharmacist 10/11/24 Secure Chat preferred If no response call [phone] or Vocera "Med Rec" Kevan La is [...] this encounter [facility] Work Phone: 10-21-2024 Hospital Discharge instructions Delilah [...] us take part in your care! - [facility] documented in this encounter [facility] Work Phone: 10-18-2024 Consult note Associated Order [...] hours. This dosing regimen is predicted by [employer] to result in the following pharmacokinetic parameters: Loading dose: N/A Regimen: 750 mg IV every 12 hours. Start time: 17:48 on 10/18/2024 Exposure target: AUC24 (range)400-600 mg/L.hr TJV95-15: 413 mg/L.hr AUC24,ss: 458 mg/L.hr Probability of [...] small molecule checkpoint inhibitor), presented on 09/2021 [facility] with a complaint of fatigue and weakness [...] apremilast. He was being treated by [facility]. Pt reports that he [...] pain (1 - 3). 10/10/2024 Study STOP-HS1 [id number] povorcitinib 45mg or 75mg tablet Take 1 [...] 30 packet 0 Not Taking Study STOP-HS1 [id number] povorcitinib 45mg or 75mg tablet Take 1 tablet by mouth once daily. Preferably in the morning, with a full glass of water. 31 tablet 0 Study STOP-HS1 [id number] povorcitinib 45mg or 75mg tablet Take 1 tablet by mouth once daily. Preferably in the morning, with a full glass of water. 31 tablet 0 Study STOP-HS1 [id number] povorcitinib 45mg or 75mg tablet Take 1 tablet by mouth once daily. Preferably in the morning, with a full glass of water. 62 tablet 0 Study STOP-HS1 [id number] povorcitinib 45mg or 75mg tablet Take 1 tablet by mouth once daily. Preferably in the morning, with a full glass of water. 62 tablet 0 Study STOP-HS1 [id number] povorcitinib 45mg or 75mg tablet Take 1 tablet by mouth once daily. Preferably in the morning, with a full glass of water. 62 tablet 0 Study STOP-HS1 [id number] povorcitinib 45mg or 75mg tablet Take 1 tablet by mouth once daily. Preferably in the morning, with a full glass of water. 62 tablet 0 Study STOP-HS1 [id number] povorcitinib 45mg, 75mg or placebo tablet Take 1 tablet by mouth once daily. Preferably in the morning, with a full glass of water. 31 tablet 0 Study STOP-HS1 [id number] povorcitinib 45mg, 75mg or placebo tablet Take 1 tablet by mouth once daily. Preferably in the morning, with a full glass of water. 31 tablet 0 Study STOP-HS1 [id number] povorcitinib 45mg, 75mg or placebo tablet Take 1 tablet by mouth once daily. Preferably in the morning, with a full glass of water. 31 tablet 0 Study STOP-HS1 [id number] povorcitinib 45mg, 75mg or placebo tablet Take [...] non tender, no organomegaly was appreciated. +BS. 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 No gross focal deficits appreciated. [...] Final No results found for: "HIV1X2", "HIVCONF", "RKVOVT2DW" No results found for: "HEPCABINIT", "HEPCAB", HCVPCRQUANT [...] ID Fellow. For new consults, contact pager [phone]. [employer] preferred. I spent 45 minutes in the [...] note. Daylin Duran MD (please reach through SvitStyle) Infectious Diseases, Senior Attending Physician Nutrition Assessment [...] morning: potatoes, scrambled eggs with cheese, an [place] muffin with butter and jelly and orange [...] Lab Units 10/14/24 0830 10/13/24 1148 10/12/24 0810/11/24 0546 GLUCOSE mg/dL 163* 144* 100* [...] Lab Units 10/14/24 0830 10/13/24 1148 10/12/24 0810/10/24 1617 ALK PHOS U/L 60 76 66 79 AST U/L 6* 10 11 9 ALT U/L 9* 9* 8* 14 BILIRUBIN TOTAL mg/dL 0.2 0.4 0.3 0.2 , Renal Lab Trend: Results from last 7 days Lab Units 10/14/24 0810/13/24 11410/12/24 0810/11/24 0546 POTASSIUM mmol/L 3.9 4.5 4.0 4.1 PHOSPHORUS mg/dL -- -- -- 3.8 SODIUM mmol/L 137 139 136 138 MAGNESIUM mg/dL -- -- -- 2.19 EGFR mL/min/1.73m*2 59* 44* 51* 52* BUN mg/dL 15 19 16 20 CREATININE mg/dL 1.44* 1.84* 1.61* 1.60* , Vit D: No results found for: "VITD25" , Vit B12: No results found for: "RNTQJNBS33" Nutrition Specific Medications: Scheduled medications acetaminophen, 975 [...] rifampin, augmentin and doxycycline. He came to [facility] ED with severe HS and associated deep seated tissue infection. Wound Assessment: Wound 09/13/24 Other (comment) Buttock Left (Active) Wound Image 10/11/24 144 Site Assessment Yellow;[place];Painful;Denuded;Indur ation;Granulation;Fibrinous;Swell ing 10/11/24 144 Wound Length (cm) 3 cm 10/11/24 1444 Wound Width (cm) 3.5 cm 10/11/24 1444 Wound Surface Area (cm^2) 10.5 cm^2 10/11/24 1444 Wound Depth (cm) 1 cm 10/11/24 1444 Wound Volume (cm^3) 10.5 cm^3 10/11/24 1444 Wound Healing % -110 10/11/24 144 State of Healing Non-healing;Slough;Undermining 10/11/241443 Undermining Clock Position of Wound 6 10/11/24 144 Margins Not attached;Poorly defined 10/11/241443 Treatments Site care;Packings 10/11/24 144 Drainage Description Purulent;[place];Yellow 10/11/24 144 Drainage Amount Moderate 10/11/241443 Dressing Hydrofiber;Packed;ABD;Silicone border dressing;Barrier film 10/11/241443 Dressing Changed New 10/11/241443 Dressing Status Dry;Clean 10/11/24 144 Wound 10/10/24 [...] Kevan La : 1975 Reason for consultation: History of Present Illness Kevan La is [...] for HS. Patient was recently admitted to [facility] 09/13-09/17 for the same complaint. He presented [...] apremilast. He was being treated by [facility]. Pt reports that he [...] Yellow, Dark-Yellow Appearance, Urine Clear Clear Specific [place], Urine 1.037 (N) 1.005 - 1.035 pH, [...] PGY2, Dermatology Epic chat (preferred) Team pager [phone] I saw and evaluated the patient. I [...] on 10/10/2024 Exposure target: AUC24 (range)400-600 mg/L.hr SRN45-57: 316 mg/L.hr AUC24,ss: 465 mg/L.hr Follow-up level tomorrow with AM labs. Will continue to monitor renal function daily while on vancomycin and order serum creatinine at least every 48 hours if not already ordered. Follow for continued vancomycin needs, clinical response, and signs/symptoms of toxicity. Long Swain PharmD Associated Order(s): IP CONSULT TO ACUTE CARE SURGERY [facility] ACUTE CARE SURGERY - HISTORY [...] Maurice Magana MD PGY-4 General Surgery ACS 96943 CHIEF COMPLAINT/REASON FOR CONSULT: 49M with PMH [...] 30 minutes after. 09/20/24 10/20/24 Ronna Carpenter APRN-MICROMATIC HONE OPERATOR nicotine polacrilex (Nicorette) 2 mg gum Chew [...] 09/18/24 10/18/24 Lia Prado MD Study STOP-HS1 [id number] povorcitinib 45mg or 75mg tablet Take 1 tablet by mouth once daily. Preferably in the morning, with a full glass of water. 02/29/24 Kimber Last MD Study STOP-HS1 [id number] povorcitinib 45mg or 75mg tablet Take 1 tablet by mouth once daily. Preferably in the morning, with a full glass of water. 04/04/24 Kimber Last MD Study STOP-HS1 [id number] povorcitinib 45mg or 75mg tablet Take 1 tablet by mouth once daily. Preferably in the morning, with a full glass of water. 04/12/24 Kimber Last MD Study STOP-HS1 [id number] povorcitinib 45mg or 75mg tablet Take 1 tablet by mouth once daily. Preferably in the morning, with a full glass of water. 05/27/24 Marlon Hughes MD Study STOP-HS1 [id number] povorcitinib 45mg or 75mg tablet Take 1 tablet by mouth once daily. Preferably in the morning, with a full glass of water. 07/08/24 Marlon Hughes MD Study STOP-HS1 [id number] povorcitinib 45mg or 75mg tablet Take 1 tablet by mouth once daily. Preferably in the morning, with a full glass of water. 08/20/24 Marlon Hughes MD Study STOP-HS1 [id number] povorcitinib 45mg or 75mg tablet Take 1 tablet by mouth once daily. Preferably in the morning, with a full glass of water. 09/30/24 Marlon Hughes MD Study STOP-HS1 [id number] povorcitinib 45mg, 75mg or placebo tablet Take 1 tablet by mouth once daily. Preferably in the morning, with a full glass of water. 12/11/23 Kimber Last MD Study STOP-HS1 [id number] povorcitinib 45mg, 75mg or placebo tablet Take 1 tablet by mouth once daily. Preferably in the morning, with a full glass of water. 12/29/23 Kimber Last MD Study STOP-HS1 [id number] povorcitinib 45mg, 75mg or placebo tablet Take 1 tablet by mouth once daily. Preferably in the morning, with a full glass of water. 01/16/24 Kimber Last MD Study STOP-HS1 [id number] povorcitinib 45mg, 75mg or placebo tablet Take [...] this encounter [facility] Work Phone: 10-13-2024 History and physical note H&P reviewed. The patient was examined and there are no changes to the H&P. Pt reassessed: plan for I&D today Cosigned by Momo Dougherty MD at 10/13/2024 7:22 PM EST Source Note - Diane Magana MD - 10/10/2024 11:27 PM EST [facility] ACUTE CARE SURGERY - HISTORY [...] Dr. Maurice Magana MD PGY-4 General Surgery [facility] [address] CHIEF COMPLAINT/REASON FOR CONSULT: 49M with PMH [...] 30 minutes after. 09/20/24 10/20/24 Ronna Carpenter, MANAGER LIFE INSURANCE-MICROMATIC HONE OPERATOR nicotine polacrilex (Nicorette) 2 mg gum Chew [...] 09/18/24 10/18/24 Lia Prado MD Study STOP-HS1 [id number] povorcitinib 45mg or 75mg tablet Take 1 tablet by mouth once daily. Preferably in the morning, with a full glass of water. 02/29/24 Kimber Last MD Study STOP-HS1 [id number] povorcitinib 45mg or 75mg tablet Take 1 tablet by mouth once daily. Preferably in the morning, with a full glass of water. 04/04/24 Kimber Last MD Study STOP-HS1 [id number] povorcitinib 45mg or 75mg tablet Take 1 tablet by mouth once daily. Preferably in the morning, with a full glass of water. 04/12/24 Kimber Last MD Study STOP-HS1 [id number] povorcitinib 45mg or 75mg tablet Take 1 tablet by mouth once daily. Preferably in the morning, with a full glass of water. 05/27/24 Marlon Hughes MD Study STOP-HS1 [id number] povorcitinib 45mg or 75mg tablet Take 1 tablet by mouth once daily. Preferably in the morning, with a full glass of water. 07/08/24 Marlon Hughes MD Study STOP-HS1 [id number] povorcitinib 45mg or 75mg tablet Take 1 tablet by mouth once daily. Preferably in the morning, with a full glass of water. 08/20/24 Marlon Hughes MD Study STOP-HS1 [id number] povorcitinib 45mg or 75mg tablet Take 1 tablet by mouth once daily. Preferably in the morning, with a full glass of water. 09/30/24 Marlon Hughes MD Study STOP-HS1 [id number] povorcitinib 45mg, 75mg or placebo tablet Take 1 tablet by mouth once daily. Preferably in the morning, with a full glass of water. 12/11/23 Kimber Last MD Study STOP-HS1 [id number] povorcitinib 45mg, 75mg or placebo tablet Take 1 tablet by mouth once daily. Preferably in the morning, with a full glass of water. 12/29/23 Kimber Last MD Study STOP-HS1 [id number] povorcitinib 45mg, 75mg or placebo tablet Take 1 tablet by mouth once daily. Preferably in the morning, with a full glass of water. 01/16/24 Kimber Last MD Study STOP-HS1 [id number] povorcitinib 45mg, 75mg or placebo tablet Take [...] small molecule JAK1 inhibitor) who presents to [facility] ED with fatigue, weakness, and worsening of L gluteal wound. Patient was recently admitted to [facility] 09/13-09/17 for the same complaint. He presented [...] 09/18/24 10/18/24 Lia Prado MD Study STOP-HS1 [id number] povorcitinib 45mg or 75mg tablet Take 1 tablet by mouth once daily. Preferably in the morning, with a full glass of water. 02/29/24 Kimber Last MD Study STOP-HS1 [id number] povorcitinib 45mg or 75mg tablet Take 1 tablet by mouth once daily. Preferably in the morning, with a full glass of water. 04/04/24 Kimber Last MD Study STOP-HSRedd [id number] povorcitinib 45mg or 75mg tablet Take 1 tablet by mouth once daily. Preferably in the morning, with a full glass of water. 04/12/24 Kimber Last MD Study STOP-HSRedd [id number] povorcitinib 45mg or 75mg tablet Take 1 tablet by mouth once daily. Preferably in the morning, with a full glass of water. 05/27/24 Marlon Hughes MD Study STOP-HS1 [id number] povorcitinib 45mg or 75mg tablet Take 1 tablet by mouth once daily. Preferably in the morning, with a full glass of water. 07/08/24 Marlon Hughes MD Study STOP-HS1 [id number] povorcitinib 45mg or 75mg tablet Take 1 tablet by mouth once daily. Preferably in the morning, with a full glass of water. 08/20/24 Marlon Hughes MD Study STOP-HS1 [id number] povorcitinib 45mg or 75mg tablet Take 1 tablet by mouth once daily. Preferably in the morning, with a full glass of water. 09/30/24 Marlon Hughes MD Study STOP-HS1 [id number] povorcitinib 45mg, 75mg or placebo tablet Take 1 tablet by mouth once daily. Preferably in the morning, with a full glass of water. 12/11/23 Kimber Last MD Study STOP-HSRedd [id number] povorcitinib 45mg, 75mg or placebo tablet Take 1 tablet by mouth once daily. Preferably in the morning, with a full glass of water. 12/29/23 Kimber Last MD Study STOP-HS1 [id number] povorcitinib 45mg, 75mg or placebo tablet Take 1 tablet by mouth once daily. Preferably in the morning, with a full glass of water. 01/16/24 Kimber Last MD Study STOP-HS1 [id number] povorcitinib 45mg, 75mg or placebo tablet Take [...] Date: 10/10/2024 Interpreted By: Beronica Valentin and Cr Layton STUDY: CT of pelvis with out contrast INDICATION: Signs/Symptoms:Left gluteal abscess COMPARISON: None. ACCESSION NUMBER(S): [id number] ORDERING CLINICIAN: MACK GRADY TECHNIQUE: Axial CT [...] as stated. This study was interpreted at [place], [place] Signed by: Beronica Valentin 10/10/2024 11:03 PM Dictation workstation: [id number] XR chest 1 view Result Date: 10/10/2024 Interpreted By: Perry Baires, STUDY: XR CHEST 1 VIEW INDICATION: Signs/Symptoms:cough. COMPARISON: September 13, 2024 ACCESSION NUMBER(S): [id number] ORDERING CLINICIAN: KISHROE GUTIERREZ FINDINGS: Previous band of right basilar airspace disease has nearly completely resolved with only a tiny amount of residual. No new consolidation or edema. No effusion or pneumothorax. Previous band of right basilar airspace disease has nearly completely resolved with only a tiny amount of residual. No new consolidation or edema. Signed by: Perry Baires 10/10/2024 5:20 PM Dictation workstation: [id number] Assessment and Plan: Kevan La is a [...] this encounter [facility] Work Phone: 10-10-2024 Emergency department Note Images [...] has noted significant pain of the left [place] where his previous hidradenitis suppurativa was. He [...] Perry Baires 10/10/2024 5:20 PM Dictation workstation: [id number] MDM: Patient is a 49-year-old male with [...] of osteomyelitis. [] ED Course User Index [MH] Mack Grady [...] condition. Mack Grady MD Emergency Medicine PGY-3 [facility] Comment: Please note this report [...] male with hidradenitis suppurativa, most treatment in [facility] where he used to live, has lived in [facility] for past 2 years, presenting with persistent left gluteal/pelvis HS flare consisting of sig pain and purulent discharge from open wound. Was admitted for a few days in Aug 2024 and is currently on outpatient abx, but getting worse to the point that she feels generally week as well as nauseated. No F/C. No CP/SOB. Did not get operative intervention during Aug admission. PE: Vital signs reviewed in nursing [...] Color, Urine Light-Yellow Appearance, Urine Clear Specific [place], Urine 1.037 (*) pH, Urine 7.0 Protein, [...] Abnormality Status --------- ------ Urinalysis with Reflex C...[[id number]] Abnormal Final result Extra Urine Rhodes Tube[[id number]] Final result Please view results for these [...] as stated. This study was interpreted at [facility], [place], [place] Signed by: Beronica Valentin 10/10/2024 11:03 PM Dictation workstation: [id number] XR chest 1 view Final Result Previous band of right basilar airspace disease has nearly completely resolved with only a tiny amount of residual. No new consolidation or edema. Signed by: Perry Baires 10/10/2024 5:20 PM Dictation workstation: [id number] Consult to Interventional Radiology (Results Pending) Medical [...] this encounter [facility] Work Phone: 09-30-2024 History of Present illness [...] this encounter [facility] Work Phone: 09-24-2024 History of Present illness [...] this encounter [facility] Work Phone: 09-17-2024 Nurse Note Discharge Note: VN went over AVS with Pt. Pt agreed and understood instructions. Pt is aware of follow up appts and blood work. Floor nurse removed IV and intact. Pt has all belongings at the bedside. Pt is awaiting Meds to Beds medication before discharge. [facility] 09-17-2024 Nurse Note Discharge Note: VN went [...] dressing is given. Pt was transferred from [facility] in [place] for this admission. Pt stated his car is at [facility] and he has no means to get there. Pt does not have insurance to set up transport. Pt doesn't have any means of transportation to get to his car at [facility], so the floor is providing LYFT pickup. Pt meds to beds is delivered. Pt is waiting for transport to leave the floor. documented in this encounter [facility] Work Phone: 09-17-2024 Nurse Note Pt is ready for discharge. Discharge paper is given, discharge instruction is given. All questions are answered at this time. Pt PIV is removed, wound dressing changed and education on how to clean and change wound dressing is given. Pt was transferred from [facility] in [place] for this admission. Pt stated his car is at [facility] and he has no means to get there. Pt does not have insurance to set up transport. Pt doesn't have any means of transportation to get to his car at [facility], so the floor is providing LYFT pickup. Pt meds to beds is delivered. Pt is waiting for transport to leave the floor. [facility] 09-17-2024 History of Present illness Narrative AGRICULTURAL ECONOMICS PROFESSOR met with patient at bedside to address questions. Patient expressed interest on if he would be approved for disability. AGRICULTURAL ECONOMICS PROFESSOR encouraged patient to call or go online to initiate the application process. Patient had disability resources at bedside. AGRICULTURAL ECONOMICS PROFESSOR notified patient that the resources explains how and where to submit application and explains what we be needed and what to expect throughout the process. Patient verbalized understanding and thanked SW. PT recommends no needs. AGRICULTURAL ECONOMICS PROFESSOR will sign off. SOPHIA Ardon 09/17/24 1213 [...] were you homeless or living in a group home (including now)? N Transportation Needs In the past 12 months, has lack of transportation kept you from medical appointments or from getting medications? no In the past 12 months, has lack of transportation kept you from meetings, work, or from getting things needed for daily living? No TCC ASSESSMENT: Met with pt and introduced myself as behavioral health care manager and member of the Care Transitions team [...] 06/2024 which resulted with termination of his [facility] medical insurance policy. Pt denies any falls. Pt stated he feels safe at home. Pt's address, phone number, and emergency contact information was verified. SW was consulted on 09/16 for financial concerns (assistance with disability, lack of insurance). Home care: none. DME: Pt stated the previous home product owner was "convalescent" so bathroom is equipped with grab bars on the shower and wall. biofuels engineering manager: none. PCP: Pt does not have a PCP and hasn't been seen by one in about 3-4 years. Transport to [facility]: Pt drives himself. Pharmacy: [facility]. Pt stated she only prescriptions he takes at home are STOP-HS 301 which is part of clinical free trial from Dermatology. Discharge Planning: Pt presenting from [facility] for new wound infection 2/2 hidradenitis suppurativa. Per medical team plan for discharge home today on oral Augmentin and PCP/Dermatology follow up appointments. Per HRS they accepted pt for [place] Medicaid and will fax auth letter to [facility] for release of his prescriptions. Pt stated he will perform his own wound to L buttock with instructions from nursing. Nursing updated and asked to perform wound care teaching + send pt home with wound care supplies as he will not be able to receive home health care until [place] Medicaid finalized. Pt voiced no additional questions or concerns regarding discharge planning. sample coordinator will continue to follow for discharge planning needs. Lorenza Morales RN Transitional Research Staff Member (TCC) [phone] or [phone] Kevan La is a 49 y.o. male [...] with new wound infection from [facility] ED.Being treated currently with Vancomycin, Zosyn, [...] (09/24/24). Remainder as above. Mica Ly MD [facility] Hospitalist Physical Therapy Physical Therapy Evaluation Patient Name: Kevan La Department: [place] [address] Room: [address] [place] [address] Today's Date: 09/16/2024 Time Calculation Start Time: [...] Prior Function Per Pt/Caregiver Report Level of [facility]: Independent with ADLs and functional transfers ADL [...] Antalgic Comments/Distance (ft) 1: 100ft Outcome Measures: [facility] Basic Mobility Turning from your back [...] Verbalizes Understanding Education Comments No comments found. [facility] reports patient is not insured and expressed interest in disability. HRS was notified and [facility] confirmed patient is on their list to see today. AGRICULTURAL ECONOMICS PROFESSOR attempted to provide patient with disability resources [...] INDICATION: Signs/Symptoms:New fever. COMPARISON: None. ACCESSION NUMBER(S): [id number] ORDERING CLINICIAN: BALDOMERO POWELL FINDINGS: 2 AP [...] Miah Alves 09/14/2024 8:38 AM Dictation workstation: [id number] Physical Exam Constitutional: Appearance: Normal appearance. HENT: [...] with new wound infection from [facility] ED.Being treated currently with Vancomycin, Zosyn, [...] INDICATION: Signs/Symptoms:New fever. COMPARISON: None. ACCESSION NUMBER(S): [id number] ORDERING CLINICIAN: BALDOMERO POWELL FINDINGS: 2 AP [...] Miah Alves 09/14/2024 8:38 AM Dictation workstation: [id number] Physical Exam PHYSICAL EXAM: General: awake, alert, [...] INDICATION: Signs/Symptoms:New fever. COMPARISON: None. ACCESSION NUMBER(S): [id number] ORDERING CLINICIAN: BALDOMERO POWELL FINDINGS: 2 AP [...] Miah Alves 09/14/2024 8:38 AM Dictation workstation: [id number] Assessment/Plan Kevan La is a 49 y.o. male presenting with PMH of severe hidradenitis supprativa (on STOP HS-301 trial (povorcitinib), small molecule JAK1 inhibitor) presenting with new wound infection from [facility] ED. 09/15/24 Update - updated pain [...] INDICATION: Signs/Symptoms:New fever. COMPARISON: None. ACCESSION NUMBER(S): [id number] ORDERING CLINICIAN: BALDOMERO SALDANAES FINDINGS: 2 AP [...] Miah Alves 09/14/2024 8:38 AM Dictation workstation: [id number] Physical Exam PHYSICAL EXAM: General: awake, alert, [...] Yellow, Dark-Yellow Appearance, Urine Clear Clear Specific [place], Urine 1.014 1.005 - 1.035 pH, Urine [...] INDICATION: Signs/Symptoms:New fever. COMPARISON: None. ACCESSION NUMBER(S): [id number] ORDERING CLINICIAN: BALDOMERO POWELL FINDINGS: 2 AP [...] Miah Alves 09/14/2024 8:38 AM Dictation workstation: [id number] CT abdomen pelvis w IV contrast Result [...] 09/12/2024 [facility] 1975 [id number] Exam Date/Time: 09/12/2024 20:17 Procedure: XR CHEST [...] with new wound infection from [facility] ED. #hidradenitis supprativa ::purulent drainage ::Leukocytosis [...] 1L LR #Allergic Rhinitis -Cetirizine 10 mg #MGEAN -Hold oral iron for now F: prn [...] 09/13/2024 Patient weight is as follows: Vitals: 09/13/242140 [...] toxicity. Alberto VanegasD documented in this encounter [facility] Work Phone: 09-17-2024 Hospital Discharge instructions Lia [...] this encounter [facility] Work Phone: 09-16-2024 Miscellaneous Notes Problem: Pain [...] complained of pain and was medicated per [facility] order and before left buttock dressing change. [...] with new wound infection from [facility] ED. He has a long-standing history [...] last Monday, morning, and the day after [place]. Drainage from his buttock has been progressively [...] trial drug. 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 He used to live in [place] [place]. Denies any sick contacts. He also reports worsening left leg weakness since May (he used to walk with a limp, now has to shuffle). He has both a dry cough that sometimes culminates in post-tussive emesis. On 09/12, he came in with a draining left thigh wound, dry cough and shortness of breath to the [facility] ED. He had some post-tussive emesis. He came in with a fever to 100.4 , tachycardia to 102. He was started on Vanc/Zosyn, got 2 L of NS, and got toradol and morphine for pain. No real culture data history for infections except for rare gram positive cocci in 2016. On 09/13, on arrival at [facility], denies any pain, but has an intermittent [...] clinical goals for the shift include patien twlola remaini safe and free rom falls during shift documented in this encounter [facility] Work Phone: 09-16-2024 Plan of care note [...] Sanchez RN [facility] 09-16-2024 Consult note Associated Order (s): IP [...] Estimated Needs: Total Energy Estimated Needs (kCal): (1169-9831 kcal) Method for Estimating Needs: MSJ 2017 [...] 40 minutes [facility] 09-16-2024 Consult note Associated Order (s): IP [...] Estimated Needs: Total Energy Estimated Needs (kCal): (4421-4018 kcal) Method for Estimating Needs: MSJ 2017 [...] (comment) Buttock Left (Active) Wound Image 09/14/24 121 Site Assessment Red;Maceration;Bleeding 09/14/24 1211 Shape Round 09/14/241 Wound Length (cm) 2.5 cm 09/14/24 1211 Wound Width (cm) 2 cm 09/14/24 1211 Wound Surface Area (cm^2) 5 cm^2 09/14/24 1211 Wound Depth (cm) 1 cm 09/14/24 1211 Wound Volume (cm^3) 5 cm^3 09/14/241 State of Healing Undermining 09/14/241 Undermining 4 cm 09/14/241 Undermining Clock Position of Wound 6 09/14/241 Margins Well-defined edges 09/14/241 Treatments Cleansed;Packings;Site care 09/14/241 Drainage Description Bourne;Purulent 09/14/241 Drainage Amount Large 09/14/241210 Dressing Hydrofiber;Packed;ABD 09/14/241210 Dressing Changed New 09/14/241210 Dressing Status Dry;Clean 09/14/241210 Wound Team Summary [...] left buttock wound with AMD packing strip (POSITION CLASSIFICATION SPECIALIST #[id number] or [id number]) Cover the surrounding abscess wounds with 2 sheets of Aquacel Ag (POSITION CLASSIFICATION SPECIALIST#[id number]) Cover the wounds with multiple ABD pads Xiomara Palmer RN [facility]ON 09/14/2024 1:14 PM Associated Order(s): IP CONSULT TO ACUTE CARE SURGERY [facility] ACUTE CARE SURGERY - CONSULT [...] any questions Seen with Dr. Dequan Petty [facility] [address] CHIEF COMPLAINT/REASON FOR CONSULT: Patient has an [...] for evaluation and then was transferred to [facility] for more definitive management. Since admission here [...] End Date Taking? Authorizing Provider Study STOP-HS1 [id number] povorcitinib 45mg or 75mg tablet Take 1 tablet by mouth once daily. Preferably in the morning, with a full glass of water. 02/29/24 Kimber Last MD Study STOP-HS1 [id number] povorcitinib 45mg or 75mg tablet Take 1 tablet by mouth once daily. Preferably in the morning, with a full glass of water. 04/04/24 Kimber Last MD Study STOP-HS1 [id number] povorcitinib 45mg or 75mg tablet Take 1 tablet by mouth once daily. Preferably in the morning, with a full glass of water. 04/12/24 Kimber Last MD Study STOP-HS1 [id number] povorcitinib 45mg or 75mg tablet Take 1 tablet by mouth once daily. Preferably in the morning, with a full glass of water. 05/27/24 Marlon Hughes MD Study STOP-HS1 [id number] povorcitinib 45mg or 75mg tablet Take 1 tablet by mouth once daily. Preferably in the morning, with a full glass of water. 07/08/24 Marlon Hughes MD Study STOP-HS1 [id number] povorcitinib 45mg or 75mg tablet Take 1 tablet by mouth once daily. Preferably in the morning, with a full glass of water. 08/20/24 Marlon Hughes MD Study STOP-HS1 [id number] povorcitinib 45mg, 75mg or placebo tablet Take 1 tablet by mouth once daily. Preferably in the morning, with a full glass of water. 12/11/23 Kimber Last MD Study STOP-HS1 [id number] povorcitinib 45mg, 75mg or placebo tablet Take 1 tablet by mouth once daily. Preferably in the morning, with a full glass of water. 12/29/23 Kimber Last MD Study STOP-HS1 [id number] povorcitinib 45mg, 75mg or placebo tablet Take 1 tablet by mouth once daily. Preferably in the morning, with a full glass of water. 01/16/24 Kimber Last MD Study STOP-HS1 [id number] povorcitinib 45mg, 75mg or placebo tablet Take [...] apremilast. He was being treated by [facility]. Pt reports that he has been on multiple therapies and was not able to list all the medications he has previously tried. He did recognize the names of the above medications. Design Inserter is unable to access paper charts for [...] at the time when talking to the conventional mortgage underwriter. Notes increased fatigue. Denies any fevers, [...] on smoking. 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 Hospital Course - 09/12 he came in with a draining left thigh wound, dry cough, and shortness of breath to [facility] ED - Vitals: T 100.4, [...] toradol/morphine for pain - 09/13 transferred to [facility] - Labs: WBC 13.4, Hgb 7.8, [...] Yellow, Dark-Yellow Appearance, Urine Clear Clear Specific [place], Urine 1.014 1.005 - 1.035 pH, Urine [...] and one with Ronna Carpenter at our [place] location. We will arrange outpatient follow-up The patient was seen and discussed with attending physician Dr. Adhikari. The assessment and plan was communicated to the care team. Thank you for the consultation and for the opportunity to contribute to the care of this patient. Danna Alves MD PGY2, Dermatology Epic chat (preferred) Team pager [phone] Jennifer Pena, Randi beal, P.Y., Mert Eubanks., Mónica Oakley, Amaris Ware., Amaris Mayen., José Miguel T.Cheryl., Cheyanne, T.Alejo., Yue Cummings., Yue Roland. and Vishal, K.Kamila., 2023. Efficacy and durability [...] this encounter [facility] Work Phone: 09-15-2024 Plan of care note [...] Sanchez RN [facility] Work Phone: 09-15-2024 Hospital Note Formatting of t his note might be different from the original. Kevan La is a 49 y.o. male presenting with PMH of severe hidradenitis supprativa (disease on left buttock and gluteal fold) on STOP HS-301 trial (povorcitinib, small molecule JAK1 inhibitor) presenting with new wound infection from [facility] ED. He has a long-standing history [...] trial drug. 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 He used to live in [place] [facility]. Denies any sick contacts. He also reports worsening left leg weakness since May (he used to walk with a limp, now has to shuffle). He has both a dry cough that sometimes culminates in post-tussive emesis. On 09/12, he came in with a draining left thigh wound, dry cough and shortness of breath to the [facility] ED. He had some post-tussive emesis. He came in with a fever to 100.4 , tachycardia to 102. He was started on Vanc/Zosyn, got 2 L of NS, and got toradol and morphine for pain. No real culture data history for infections except for rare gram positive cocci in 2015. On 09/13, on arrival at [facility], denies any pain, but has an intermittent [...] as pt expressed interest in quitting smoking. [facility] Work Phone: 09-14-2024 Plan of care note The patient's goals for the shift include The clinical goals for the shift include patien twill remaini safe and free rom falls during shift [facility] 09-14-2024 Consult note Associated Order (s): WOUND [...] left buttock wound with AMD packing strip (POSITION CLASSIFICATION SPECIALIST #[id number] or [id number]) Cover the surrounding abscess wounds with 2 sheets of Aquacel Ag (POSITION CLASSIFICATION SPECIALIST#[id number]) Cover the wounds with multiple ABD pads Xiomara Palmer RN [facility] 09/14/2024 1:14 PM [facility] 09-14-2024 Consult note Associated Order (s): IP CONSULT TO ACUTE CARE SURGERY [facility] ACUTE CARE SURGERY - CONSULT [...] any questions Seen with Dr. Dequan Petty [facility] [address] CHIEF COMPLAINT/REASON FOR CONSULT: Patient has an [...] for evaluation and then was transferred to [facility] for more definitive management. Since admission here [...] End Date Taking? Authorizing Provider Study STOP-HS1 [id number] povorcitinib 45mg or 75mg tablet Take 1 tablet by mouth once daily. Preferably in the morning, with a full glass of water. 02/29/24 iKmber Last MD Study STOP-HS1 [id number] povorcitinib 45mg or 75mg tablet Take 1 tablet by mouth once daily. Preferably in the morning, with a full glass of water. 04/04/24 Kimber Last MD Study STOP-HS1 [id number] povorcitinib 45mg or 75mg tablet Take 1 tablet by mouth once daily. Preferably in the morning, with a full glass of water. 04/12/24 Kimber Last MD Study STOP-HS1 [id number] povorcitinib 45mg or 75mg tablet Take 1 tablet by mouth once daily. Preferably in the morning, with a full glass of water. 05/27/24 Marlon Hughes MD Study STOP-HS1 [id number] povorcitinib 45mg or 75mg tablet Take 1 tablet by mouth once daily. Preferably in the morning, with a full glass of water. 07/08/24 Marlon Hughes MD Study STOP-HS1 [id number] povorcitinib 45mg or 75mg tablet Take 1 tablet by mouth once daily. Preferably in the morning, with a full glass of water. 08/20/24 Marlon Hughes MD Study STOP-HS1 [id number] povorcitinib 45mg, 75mg or placebo tablet Take 1 tablet by mouth once daily. Preferably in the morning, with a full glass of water. 12/11/23 Kimber Last MD Study STOP-HS1 [id number] povorcitinib 45mg, 75mg or placebo tablet Take 1 tablet by mouth once daily. Preferably in the morning, with a full glass of water. 12/29/23 Kimber Last MD Study STOP-HS1 [id number] povorcitinib 45mg, 75mg or placebo tablet Take 1 tablet by mouth once daily. Preferably in the morning, with a full glass of water. 01/16/24 Kimber Last MD Study STOP-HS1 [id number] povorcitinib 45mg, 75mg or placebo tablet Take [...] Care Surgery [facility] Work Phone: 09-14-2024 Consult note Associated Order [...] apremilast. He was being treated by [facility]. Pt reports that he has been on multiple therapies and was not able to list all the medications he has previously tried. He did recognize the names of the above medications. Design Inserter is unable to access paper charts for [...] at the time when talking to the conventional mortgage underwriter. Notes increased fatigue. Denies any fevers, [...] on smoking. 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 Hospital Course - 09/12 he came in with a draining left thigh wound, dry cough, and shortness of breath to [facility] ED - Vitals: T 100.4, [...] toradol/morphine for pain - 09/13 transferred to main campus - Labs: WBC 13.4, Hgb 7.8, platelets [...] Yellow, Dark-Yellow Appearance, Urine Clear Clear Specific [place], Urine 1.014 1.005 - 1.035 pH, Urine [...] and one with Ronna Carpenter at our [place] location. We will arrange outpatient follow-up The patient was seen and discussed with attending physician Dr. Adhikari. The assessment and plan was communicated to the care team. Thank you for the consultation and for the opportunity to contribute to the care of this patient. Danna Alves MD PGY2, Dermatology Epic chat (preferred) Team pager [phone] Jennifer Pena, Zuleyka Smith., Hu Eubanks, Mónica Oakley, Latrell Ware, Latrell Mayen, Yojana Valdez, Johana Edward, Yue Cummings., Yue Roland. and Aure Rodgers., [...] the note. [facility] Work Phone: 09-14-2024 Consult note Associated Order [...] Luna PharmD [facility] Work Phone: 09-13-2024 Emergency department Note Pt leaving [facility] ED at this time to go to . Belongings with EMS. [facility] 09-13-2024 Emergency department Note Pt leaving [facility] ED at this time to go to . Belongings with EMS. Report called to RN. RN informed vancomycin was stopped for transport. [facility] ETA 8pm transfer line called - pt will go to [facility]- 5016 bed A. Number for report [phone] [facility] Research Nurse called back. Per the Research Physician, the patient does not have to be transferred to [facility]. All that needs to be done is a "Biologic Medication" needs prescribed, and the patient can be admitted here. The patient is in an outpatient study. If any further questions, we can contact AMAN Hancock @ [phone]. Patient is in a study at [facility]. He has provided a card for his physician and nurse in the study. I contacted the nurse "Karissa" and left a message @ [phone]. Patient is on the waiting list for and as of 0800 today there are still no rooms available at for this patient. Karissa called back and will contact her MD's over her and will get back with me. [facility] ED EMERGENCY DEPARTMENT ENCOUNTER Pt Name: Kevan [...] Procedure Abnormality Status --------- ------ Culture, Aerobic Bacteri...[[id number]] In process Anaerobic culture[[id number]] In process Please view results for these tests on the individual orders. CULTURE, AEROBIC BACTERIA WITH GRAM STAIN CULTURE ANAEROBIC HIGH SENSITIVITY TROPONIN, SERIAL, SECOND TEST EMERGENCY DEPARTMENT COURSE and DIFFERENTIAL DIAGNOSIS/MDM: Vitals: Vitals: 09/12/24 1948 09/12/247 09/12/24 2210 BP: 124/81 113/62 BP Location: [...] clinical trial is. As below, accepted by [facility]. I discussed test results and [...] with a treatment for HS (Study STOP-HS1 [id number] povorcitinib 45mg or 75mg tablet) [RADHA] 2206 I discussed with general surgery Dr. Marcus who agreed with antibiotics and admission and will likely need surgery at some point. Recommended admitting where the patient is currently on trial. [RADHA] 2308 About 5 minutes ago I discussed over the phone with Dr. Quintero from [facility] who accepted the admission. [RADHA] ED [...] Xiomara Kauffman MD JUAN Emergency Medicine Physician [facility] Xiomara Kauffman MD 09/12/24 8302 documented in this encounter [facility] 09-13-2024 Emergency department Note Report called to RN. RN informed vancomycin was stopped for transport. [facility] 09-13-2024 History and physical note Images from the original note were not included. History Of Present Illness Kevan La is a 49 y.o. male presenting with PMH of severe hidradenitis supprativa (disease on left buttock and gluteal fold) on STOP HS-301 trial (povorcitinib, small molecule JAK1 inhibitor) presenting with new wound infection from [facility] ED. He has a long-standing history [...] trial drug. 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 He used to live in [facility]. Denies any sick contacts. He also reports worsening left leg weakness since May (he used to walk with a limp, now has to shuffle). He has both a dry cough that sometimes culminates in post-tussive emesis. On 09/12, he came in with a draining left thigh wound, dry cough and shortness of breath to the [facility] ED. He had some post-tussive [...] Seminars and Arthritis and Rheumatism). Here at [facility], denies any pain, but has an intermittent dry cough. His wound is draining large amounts of yellow/lieberman fluid. 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 #New wound infection with purulent [...] the note. [facility] Work Phone: 09-13-2024 History and physical note Images from the original note were not included. History Of Present Illness Kevan La is a 49 y.o. male presenting with PMH of severe hidradenitis supprativa (disease on left buttock and gluteal fold) on STOP HS-301 trial (povorcitinib, small molecule JAK1 inhibitor) presenting with new wound infection from [facility] ED. He has a long-standing history [...] last Monday, morning, and the day after [place]. Drainage from his buttock has been progressively [...] trial drug. 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 He used to live in [facility]. Denies any sick contacts. He also reports worsening left leg weakness since May (he used to walk with a limp, now has to shuffle). He has both a dry cough that sometimes culminates in post-tussive emesis. On 09/12, he came in with a draining left thigh wound, dry cough and shortness of breath to the [facility] ED. He had some post-tussive [...] Seminars and Arthritis and Rheumatism). Here at [facility], denies any pain, but has an intermittent dry cough. His wound is draining large amounts of yellow/lieberman fluid. 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 #New wound infection with purulent [...] this encounter [facility] Work Phone: 09-13-2024 Emergency department Note [facility] ETA 8pm [email or web address] 09-13-2024 Emergency department Note transfer line called - pt will go to [facility] bed A. Number for report [phone] [facility] [email or web address] 09-13-2024 Consult note Formatting of th is [...] creatinine, and vancomycin levels interfaced automatically to [employer] and data has been analyzed and interpreted. [...] RPh Clinical Pharmacist Available via Secure Chat [employer] 09-13-2024 Consult note Formatting of th is [...] creatinine, and vancomycin levels interfaced automatically to [employer] and data has been analyzed and interpreted. [...] via Secure Chat documented in this encounter [facility] 09-13-2024 Emergency department Note [facility] Research Nurse called back. Per the Research Physician, the patient does not have to be transferred to [facility]. All that needs to be done is a "Biologic Medication" needs prescribed, and the patient can be admitted here. The patient is in an outpatient study. If any further questions, we can contact [facility] Hancock @ [phone]. [facility] 09-13-2024 Emergency department Note Patient is in a study at hospital. He has provided a card for his physician and nurse in the study. I contacted the nurse "Karissa" and left a message @ [phone]. Patient is on the waiting list for and as of 0800 today there are still no rooms available at for this patient. Karissa called back and will contact her MD's over her and will get back with me. [facility] 09-12-2024 Physician Emergency department Note [facility] ED EMERGENCY DEPARTMENT ENCOUNTER Pt Name: Kevan [...] Procedure Abnormality Status --------- ------ Culture, Aerobic Bacteri...[[id number]] In process Anaerobic culture[[id number]] In process Please view results for these [...] clinical trial is. As below, accepted by [facility]. I discussed test results and [...] with a treatment for HS (Study STOP-HS1 [id number] povorcitinib 45mg or 75mg tablet) [RADHA] 2206 I discussed with general surgery Dr. Marcus who agreed with antibiotics and admission and will likely need surgery at some point. Recommended admitting where the patient is currently on trial. [RADHA] 2308 About 5 minutes ago I discussed over the phone with Dr. Quintero from [facility] who accepted the admission. [RADHA] ED [...] Xiomara Kauffman MD JUAN Emergency Medicine Physician [facility] Xiomara Kauffman MD 09/12/24 1391 [facility] 08-20-2024 History of Present illness Narrative Patient seen for Week 36 of STOP HS-301 trial by Marlon Hughes MD No serious adverse events or major changes in concomitant medications noted. Please see physical copy of notes located in subject binder for additional information. documented in this encounter [facility] Work Phone: 04-04-2024 History of Present illness Narrative Patient seen for Unscheduled Visit of STOP HS-301 trial by Kimber Last MD No serious adverse events or major changes in concomitant medications noted. Please see physical copy of notes located in subject binder for additional information. documented in this encounter [facility] Work Phone: Evaluation note Diagnosis Hidradenitis suppurativa- Primary Hidradenitis [facility] Clinical trial participant- Primary Clinical trial participant documented in this encounter [facility] Work Phone: Evaluation note* Diagnosis Clinical trial participant documented in this encounter [facility] Work Phone: Evaluation note* Diagnosis Clinical trial participant documented in this encounter [facility] Work Phone: [phone] note* Diagnosis Clinical trial participant- Primary documented in this encounter [facility] Work Phone: Evaluation note* Diagnosis Clinical trial participant- Primary documented in this encounter [facility] Work Phone: [phone] note* Diagnosis Clinical trial participant- Primary documented in this encounter [facility] Work Phone: Evaluation note* Diagnosis Clinical trial participant- Primary documented in this encounter [facility] Work Phone: [phone] note* Diagnosis Clinical trial participant- Primary documented in this encounter [facility] Work Phone: Evaluation note* Diagnosis Clinical trial participant documented in this encounter [facility] Work Phone: Evaluation note* Diagnosis Clinical trial participant- Primary documented in this encounter [facility] Work Phone: Evaluation note* Diagnosis Clinical trial participant- Primary documented in this encounter [facility] Work Phone: Evaluation note* Diagnosis Buttock wound, left, initial encounter- Primary Sepsis, due to unspecified organism, unspecified whether acute organ dysfunction present (HCC) Hidradenitis suppurativa Hidradenitis documented in this encounter [facility] Zarangaation note* Diagnosis Wound infection- Primary Posttraumatic wound infection not elsewhere classified Wound infection Posttraumatic wound infection not elsewhere classified Nausea Nausea alone Constipation, unspecified constipation type Viral infection Smoking Tobacco use disorder Hidradenitis suppurativa Hidradenitis documented in this encounter [facility] Work Phone: Evaluation note* Diagnosis Wound infection- Primary Posttraumatic wound infection not elsewhere classified Wound infection Posttraumatic wound infection not elsewhere classified Nausea Nausea alone Constipation, unspecified constipation type Viral infection Smoking Tobacco use disorder Hidradenitis suppurativa Hidradenitis documented in this encounter [facility] Work Phone: Evaluation note* Diagnosis Counseling on health promotion and disease prevention- Primary Other specified counseling Hidradenitis suppurativa Hidradenitis documented in this encounter [facility] Work Phone: Evaluation note* Diagnosis Clinical trial participant- Primary documented in this encounter [facility] Work Phone: evaluation note* Diagnosis Gluteal abscess- Primary Cellulitis and [...] this encounter [facility] Work Phone: Evaluation note* Diagnosis Abscess- Primary Cellulitis and abscess of unspecified site Abscess Cellulitis and abscess of unspecified site documented in this encounter [facility] [email or web address] note* Diagnosis Gluteal abscess- Primary Cellulitis and [...] this encounter [facility] Work Phone: Evaluation note* Diagnosis Gluteal abscess- [...] this encounter [facility] Work Phone: Evaluation note* Diagnosis Abscess of left hip- Primary Abscess of left hip [facility] Diagnosis Gluteal abscess- Primary Cellulitis [...] this encounter [facility] Work Phone: Evaluation note* Diagnosis Gluteal abscess- [...] this encounter [facility] Work Phone: Evaluation note* Diagnosis Sepsis, due to unspecified organism, unspecified whether acute organ dysfunction present (HCC)- Primary Sepsis, due to unspecified organism, unspecified whether acute organ dysfunction present (HCC) Abscess of left hip [facility] noteNo assessment information availableWSCCI [facility] Work Phone: Evaluation note* Diagnosis Gluteal abscess- [...] this encounter [facility] Work Phone: Evaluation note* Diagnosis Gluteal abscess- [...] this encounter [facility] Work Phone: Evaluation note* Diagnosis Gluteal abscess- [...] this encounter [facility] Work Phone: Evaluation note* Diagnosis Gluteal abscess- [...] this encounter [facility] Work Phone: Evaluation note* Diagnosis Gluteal abscess- [...] this encounter [facility] Work Phone: Evaluation note* Diagnosis Gluteal abscess- [...] this encounter [facility] Work Phone: Evaluation note* Diagnosis Gluteal abscess- [...] this encounter [facility] Work Phone: Evaluation note* Diagnosis Gluteal abscess- [...] this encounter [facility] Work Phone: Evaluation note* Diagnosis Gluteal abscess- [...] this encounter [facility] Work Phone: Evaluation note* Diagnosis Gluteal abscess- [...] this encounter [facility] Work Phone: Evaluation note* Diagnosis Gluteal abscess- [...] this encounter [facility] Work Phone: Evaluation note* Diagnosis Gluteal abscess- [...] due to Staphylococcus Wound of thigh- Primary Wound of thigh- Primary Wound of thigh documented in this encounter [facility] Work Phone: History of Present illness Narrative* Janny Swain RN - 05/12/2025 2:30 PM EDT Images from the original note were not [...] a 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 He presented to [facility] on 12/24 for worseningdisease of left thigh with septic shock following administration of cemiplimab on 12/20/2024. Plasticsurgery consulted intraoperatively on 01/30/25 during OR with [...] pain at pressure ulcer at his right glutealarea. States overnight he had some bleeding from left thigh/gluteal wound. Reports protein intake with protein shakes while at facility. 05/12: Presents today for his pre op appointment for skin graft on 05/16. Reports TD dressing changeswith NS BID at nursing facility. Averaging about 70-90 g protein per day. Review of Systems ROS: All 10 systems were reviewed and are unremarkable except for those mentioned in HPI. Objective : Physical Exam Vitals and nursing note reviewed. Exam conducted with a home care and home health aides teacher present. Constitutional: General: not in acute distress. [...] that extends to the posterior mid thigh woundexposed, wound bed with healthy red granulation tissue. he remaining surrounding skin involving thethigh shows areas of hyperpigmentation/discoloration consistent with previous skin sheering forces a nd skin breakdown. No mal odor present at wound. No signs of infection. 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 Lauren PA-C Plastic and Reconstructive Surgery documented [facility]: Rehdjr for referral (narrative)No reason for referral information availableWSCCI Hospital [facility] Work Phone: Reason for visit Narrative* Auth/Cert Specialty Diagnoses / Procedures Referred By Contac t Referred To Contact Diagnoses Sepsis Procedures No [place] [address] [place] [address] Phone: tel: fax: [facility] [id number] [facility] [place] [address] Referral ID Status Reason Start Date Expiration Date Visits Re quested Visits Authorized [id number] 1 1 [facility] Work Phone: Rejugh for visit Narrative* Auth/Cert (Routine) Specialty Diagnoses / Procedures Referred By Contac t Referred To Contact Diagnoses Gluteal abscess Gluteal mass vs abscess [place] [address] [place] [address] Phone: tel: fax: [facility] [address] [address] [place] [address] Phone: tel: Referral ID Status Reason Start Date Expiration Date Visits Re quested Visits Authorized [id number] 1 1 [facility] Work Phone: Respbv for visit Narrative* SCC Consult (Routine) - Authorized Specialty Diagnoses / Procedures Referred By Contac t Referred To Contact Hematology and Oncology Diagnoses Squamous cell carcinoma of left hip Subauste, [place] [address] [place] [address] Phone: tel: fax: [place] [address] [place] [address] Phone: tel: fax: Referral ID Status Reason Start Date Expiration Date Visits Requested Visits Authorized [id number] Authorized Specialty Services Required 11/19/2024 11/19/2025 1 1 [facility] Work Phone: Rehvgj for visit Narrative* Auth/Cert Specialty Diagnoses / Procedures Referred By Contac t Referred To Contact Diagnoses [place] [address] [place] [address] Phone: tel: fax: [facility] [address] [email or web address] [address] Referral ID Status Reason Start Date Expiration Date Visits Re quested Visits Authorized [id number] 1 1 [facility] Work Phone: reason for visit Narrative* SCC Consult (Routine) - Authorized Specialty Diagnoses / Procedures Referred By Contac t Referred To Contact Palliative Medicine / Hematology and Oncology Diagnoses Cancer associated pain Omaira Clayton, MANAGER [employer] OPER[employer] [address] [place] [address] Phone: tel: fax: Referral ID Status Reason Start Date Expiration Date Visits Requested Visits Authorized [id number] Authorized Specialty Services Required 11/25/2024 11/25/2025 1 1 [facility] Work Phone: Reason for Referral Specialty Diagnoses / Procedures Referred By Contac t Referred To Contact Diagnoses Clinical trial participant Procedures ECG 12 lead (Ancillary Performed) [place]utz [place] PhD [address] [facility] [place] [address] Referral ID Status Reason Start Date Expiration Date V isits Requested Visits Authorized [id number] Authorized 02/29/2024 02/28/2025 1 1 Advance Directives [...] Reason for Visit Chief Complaint Admit Date [facility] October 24, 2024 5:00am Chief Complaint Admit Date [facility] October 24, 2024 5:00am [facility] December 04, 2024 5 :00am Chief Complaint Admit Date [facility] February 18, 2025 5:0 0am [facility] February 20, 2025 5:0 0am [facility] March 12, 2025 5: 00am [facility] March 18, 2025 9:0 0pm Additional Source Comments Reason for Visit (unrecogniz ed section and content) Reason Comments Wound Check Specialty Diagnoses / Procedures Referred By Adrian t Referred To Contact Diagnoses Abscess of left hip Procedures . Juvenal Mathur MD [address] [address] Phone: tel: fax: [facility] [address] [place] [phone] Phone: tel: Referral ID Status Reason Start Date Expiration Date Visits Re quested Visits Authorized [id number] 1 1 Specialty Diagnoses / Procedures Referred By Controlo t Referred To Contact Diagnoses Clinical trial participant Procedures ECG 12 lead (Ancillary Performed) Myles Lutz MD PhD [id number] [address] [place] [address] Referral ID Status Reason Start Date Expiration Date V isits Requested Visits Authorized [id number] Authorized 02/29/2024 02/28/2025 1 1 Reason Comments Dehydration Fatigue Patient arrived to E D c/o dehydration and fatigue for a few days. Also c/o cough. Specialty Diagnoses / Procedures Referred By Adrian t Referred To Contact Diagnoses . Procedures . [address] [address] Phone: tel: [facility] [address] [place] [address] Phone: tel: Referral ID Status Reason Start Date Expiration Date Visits Re quested Visits Authorized [id number] 1 1 Reason Comments Wound Check Pt arrives from SNF for possible sepsis. Had wound on buttock drained at in Sep. Has not had IV antibiotics at facility. Hx of rare skin condition with frequent abscesses. Aox4. Some N/V. Hypotensive 80-90 systolic. Reason Comments Follow-up Reason Comments Wound Infection Pt arrives by [facility] from [facility] in [place], [facility] pt has had wound infection since September, pt stood up out of bed last night and it started bleeding and having a foul odor last night. Specialty Diagnoses / Procedures Referred By Adrian melgar Referred To Contact Diagnoses Sepsis, due to unspecified organism, unspecified whether acute organ dysfunction present (HCC) Procedures . Clarita Hay, [address] [place] [address] Phone: tel: fax: [facility] [address] [place] [phone] Phone: tel: Referral ID Status Reason Start Date Expiration Date Visits Re quested Visits Authorized [id number] 1 1 Reason Comments OTV In house [...] sedation for opioid reversal - MUST notify iron handler provider immediately after first dose, may give [...] - Reason: Patient/family refused)0658 (Given - Provider: Craley Arevalo RN)1632 (Given - Provider: Zuleyma Sanchez [...] Arevalo RN) 0506 (Given - Provider: Carley Arevalo, AMAN)1232 [...] Carley Arevalo RN)0558 (New Bag - Provider: Carlye Arevalo RN - Comment: pharmacy brought doses [...] date. 1202 (Given - Provider: Jose Armando Orzoco RN) 0826 (Given - Provider: Jose Armando [...] First dose on Mon10/19/24 at 0800, Mini-Bag Plus/ADD-Rainbow bag, Suspected Indication (Select all that apply): Cellulitis, Skin and Soft Tissue, Type of Therapy: Empiric, Indications: Cellulitis, Skin and Soft Tissue 0215 (New Bag - Provider: Ericka Lizer, RN)0327 (Stopped - Provider: Ericka Perkins RN)0858 [...] Neva Gibbs RN)2111 (Given - Provider: Kathryn Araujo, AMAN) 0950 (Given - Provider: Latricia Rm RN)2100 [...] Medication not available)2113 (Given - Provider: Kathryn Araujo, AMAN) 0948 (Given - Provider: Latricia Rm, AMAN)1500 (Due)2100 (Due) varenicline tartrate (Chantix) tablet 0.5 [...] the end of 12 weeks of treatment. 929 (Given - Provider: Neva Gibbs RN)2113 (Given - Provider: Kathryn Araujo, AMAN) 0948 (Given - Provider: Latricia Rm RN)2100 [...] mg from all sources in 24 hours. 210 (Given - Provider: Allison Treadwell RN) 0511 (Given - Provider: Jamison Maldonado, RN)1347 (Given - Provider: Sabrina Ricks, RN)210 (Given - Provider: Chuck Cisneros RN) enoxaparin [...] (New Bag - Provider: Allison Treadwell RN) 023 (Stopped - Provider: Allison Teradwell RN)0704 (New Bag - Provider: Jamison Maldonado, [...] hours, First dose on Mon11/09/24 at 0500, ADD-Rainbow bag, Suspected Indication (Select all that apply): Skin and Soft Tissue Infection 0512 (New Bag - Provider: Jamison Maldonado, AMAN)0642 (Stopped - Provider: María Yang, RN)1848 (New Bag - Provider: María Yang, RN)2018 (Stopped - Provider: Chuck Cisneros, AMAN) [...] pupils, RR < 8; notify primary team iron handler if used ondansetron (Zofran) injection 4 mg(Linked [...] 2027 0237 (See Alternative - Provider: Allison Treadwell, AMAN)0910 (See Alternative - Provider: María Yang, RN)1848 (See Alternative - Provider: María Yang, RN) 0156 (See Alternative - Provider: Chuck Cisneros, RN) oxyCODONE (Roxicodone) immediate release tablet 5 mg(Linked Group 2) 5 mg, Oral, Every 4 hours PRN, severe pain (7-10), Starting on Mon11/08/24 at 2027 0237 (Given - Provider: Allison Treadwell RN)0910 (Given - Provider: María Yang, RN)1848 (Given [...] Elsy Diaz RN)1700 (Due - Provider: Cristi eRynoso, PharmD)2300 (Due - Provider: Cristi Reynoso, PharmD) polyethylene glycol (Glycolax, Miralax) packet 17 g 17 g, oral, 2 times daily, First dose (after last modification) on 11/10/24 at 0900 1217 (Given - Provider: Elsy Diaz RN)2003 (Not Given - Provider: Ericka Mary RN - Reason: Patient/family refused) 0918 (Given - Provider: Tammy Otoole LPN)2041 (Not Given - Provider: Lena Ambriz RN - Reason: Patient/family refused - Comment: patient refused) 906 (Not Given - Provider: Elsy Diaz RN - Reason: Patient/family refused)2100 (Due) sennosides-docusate sodium (Leda-Colace) 8.6-50 mg per tablet 2 tablet 2 tablet, oral, 2 times daily, First dose on 11/10/24 at 0900 09 (Given - Provider: Elsy Diaz RN)2003 (Not Given - Provider: Ericka Mary RN - Reason: Patient/family refused) 918 (Given - Provider: Tammy Otoole LPN)2040 (Given - Provider: Lena Ambriz RN) 905 (Given - Provider: Elsy Diaz RN)2100 (Due) varenicline tartrate (Chantix) tablet 1 mg 1 mg, oral, 2 times daily, First dose on Mon11/10/24 at 0900, Give with meals and with [...] Hours, Every 6 hours, First dose on 12/07/24 at 0605, Dosage or interval has been [...] Other - Comment: 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 - asked pharmacy to retime)1056 (New Bag [...] sedation for opioid reversal - MUST notify iron handler provider immediately after first dose, may give [...] Ponce, AMAN) 0846 (Given - Provider: Rosa Mcfadden, AMAN)2121 [...] Corona RN)1300 (Due - Provider: Shanel Norwood, AMAN)2100 (Due) cholecalciferol (Vitamin D-3) tablet 1,000 Units [...] RN)203 (Given - Provider: Sharron Ponce, AMAN) 0847 [...] 203 (Given - Provider: Sharron Ponce RN) 212 [...] Ponce RN)1411 (Given - Provider: Rosa Mcfadden RN)2122 (Given - Provider: Carmina Corona RN) 0514 [...] Rosa Mcfadden RN)1449 (Given - Provider: Rosa Mcfadden, AMAN)2252 (Given [...] RN) 0827 (Given - Provider: Shanel Norwood, AMAN)2100 (Due) PRN Medication Order 12/17/2024 12/18/2024 12/19/2024 [...] Ponce RN)0956 (Given - Provider: Rosa Mcfadden, AMAN) 1103 (Given - Provider: Shanel Norwood RN) [...] Corona RN)0458 (Given - Provider: Carmina Corona, RN)0825 (Given - Provider: Shanel Norwood, RN)1246 [...] line, Starting on 12/08/24 at 1023, Give IL if patient is unable to take orally [...] line, Starting on Mon12/08/24 at 1023, Give IL if patient is unable to take orally or receive by injection. Scheduled Medication Order 12/22/2024 12/23/2024 12/24/2024 acetaminophen (Tylenol) tablet 1,000 mg 1,000 mg, Oral, Every 6 hours, First dose on Mon12/22/24 at 1400, Maximum dose of acetaminophen is 4000 mg from all sources in 24 hours. 1326 (Given - Provider: Kang Dickson RN)2001 (Given - Provider: Barry Man, AMAN) 0238 (Given - Provider: Barry Man RN)0923 (Given - Provider: Sunni Meehan RN)1324 (Given - Provider: Sunni Meehan RN)2123 (Given - Provider: Diana Wise, AMAN) 0146 (Given - Provider: Diana Wise RN)0800 [...] Thromboembolism 0945 (Not Given - Provider: Sunni Cornland, RN - Reason: Patient/family refused) 0845 (Given [...] in 0.9% sodium chloride 250 mL infusion (Lob-Pibagx-Hxzdm) (premix) (CANCELED) 2-50 mcg/min (7.5-187.5 mL/hr), IntraVENous, [...] sedation for opioid reversal - MUST notify iron handler provider immediately after first dose, may give [...] Man RN)0652 (Given - Provider: Barry Man, RN)2127 [...] Care Teams (unrecognized sec tion and content) Program Supervisor Relationship Specialty [place] [address] [place], [place] [id number] Consulting Physician Hematology and Oncology 11/29/24 Program Supervisor Relationship Specialty [place] [address] [place], [place] [id number] Consulting Physician Hematology and Oncology 11/29/24 Program Supervisor Relationship Specialty [place] [address] [place], [place] [id number] Consulting Physician Hematology and Oncology 11/29/24 Team Status: Active Member Role Status Dates Julio SAMANIEGO Primary Care Provider Active Team Status: Inactive Member Role Status Dates Julio SAMANIEGO Primary Care Provider Active S tart: October 24, 2024 End: October 24, 2024 Julio SAMANIEGO Attending Provider Active Star t: October 24, 2024 End: October 24, 2024 Team Status: Active Member Role Status Dates uJlio SAMANIEGO Primary Care Provider Active S tart: December 04, 2024 Julio SAMANIEGO Attending Provider Active Star t: December 04, 2024 Team Status: Inactive Member Role Status Dates Julio SAMANIEGO Primary Care Provider Active S tart: December 04, 2024 End: December 04, 2024 Julio SAMANIEGO Attending Provider Active Star t: December 04, 2024 End: December 04, 2024 Program Supervisor Relationship Specialty [place] [address] [place] [address] Consulting Physician Hematology and Oncology 11/29/24 Program Supervisor Relationship Specialty [place] [address] [place] [address] Consulting Physician Hematology and Oncology 11/29/24 Program Supervisor Relationship Specialty Start Date End Date Generic Provider, No [place] [address] PCP - General Oil Field Laborer 01/03/25 [place] [address] [place] [address] Consulting Physician Hematology and Oncology 11/29/24 Program Supervisor Relationship Specialty Start Date End Date Generic Provider, No [place] [address] PCP - General Oil Field Laborer 01/03/25 [place] [address] [place] [address] Consulting Physician Hematology and Oncology 11/29/24 Program Supervisor Relationship Specialty Start Date End Date Generic Provider, No [place] [address] PCP - General Oil Field Laborer 01/03/25 [place] [address] [place] [address] Consulting Physician Hematology and Oncology 11/29/24 Program Supervisor Relationship Specialty Start Date End Date Generic Provider, No [place] [address] PCP - General Oil Field Laborer 01/03/25 [place] [address] [place] [address] Consulting Physician Hematology and Oncology 11/29/24 Program Supervisor Relationship Specialty Start Date End Date Generic Provider, No [place] [address] PCP - General Oil Field Laborer 01/03/25 [place] [address] [place] [address] Consulting Physician Hematology and Oncology 11/29/24 Program Supervisor Relationship Specialty Start Date End Date Generic Provider, No [place] [address] PCP - General Oil Field Laborer 01/03/25 [place] [address] [place] [address] Consulting Physician Hematology and Oncology 11/29/24 Program Supervisor Relationship Specialty Start Date End Date Generic Provider, [place] [address] PCP - General Oil Field Laborer 01/03/25 [place] [address] [place] [address] Consulting Physician Hematology and Oncology 11/29/24 Program Supervisor Relationship Specialty Start Date End Date Generic Provider, No Assigned [place] [address] PCP - General Oil Field Laborer 01/03/25 [place] [address] [place] [address] Consulting Physician Hematology and Oncology 11/29/24 Program Supervisor Relationship Specialty Start Date End Date Generic Provider, No Assigned [facility] [place] [address] PCP - General Oil Field Laborer 01/03/25 [place] [address] [place] [address] Consulting Physician Hematology and Oncology 11/29/24 [place] [address] [place] [address] Consulting Physician Hematology and Oncology 01/30/25 Program Supervisor Relationship Specialty Start Date End Date Generic Provider, [place] [address] PCP - General Oil Field Laborer 01/03/25 [place] [address] [place] [address] Consulting Physician Hematology and Oncology 11/29/24 [place] [address] [place] [address] Consulting Physician Hematology and Oncology 01/30/25 Program Supervisor Relationship Specialty Start Date End Date Generic Provider, [place] [address] PCP - General Oil Field Laborer 01/03/25 [place] [address] [place] [address] Consulting Physician Hematology and Oncology 11/29/24 [place] [address] [place] [address] Consulting Physician Hematology and Oncology 01/30/25 Program Supervisor Relationship Specialty Start Date End Date Generic Provider, [place] [address] PCP - General Oil Field Laborer 01/03/25 [place] [address] [place] [address] Consulting Physician Hematology and Oncology 11/29/24 [place] [address] [place] [address] Consulting Physician Hematology and Oncology 01/30/25 Program Supervisor Relationship Specialty Start Date End Date Generic Provider, No [place] [address] PCP - General Oil Field Laborer 01/03/25 [place] [address] [place] [address] Consulting Physician Hematology and Oncology 11/29/24 [place] [address] [place], [place] [phone] Consulting Physician Hematology and Oncology 01/30/25 Team [...] March 18, 2025 End: March 18, 2025 Program Supervisor Relationship Specialty Start Date End Date Generic Provider, No [place] [address] PCP - General Oil Field Laborer 01/03/25 [place] [address] [place] [address] Consulting Physician Hematology and Oncology 11/29/24 [place] [address] [place] [address] Consulting Physician Hematology and Oncology 01/30/25 (unrecognized sect ion and content) No Status Records FoundNo Status Records FoundNo Status Records FoundNo Status Records FoundNo Status Records Found INFORMATION SOURCE (unrecogn ized section and content) DATE CREATED AUTHOR 12/21/2024 [facility] DATE CREATED AUTHOR AUTHOR'S ORGANIZ ATION 12/31/2024 [facility] DATE CREATED AUTHOR AUTHOR'S ORGANIZ ATION 05/11/[address] [facility] DATE CREATED AUTHOR AUTHOR'S ORGANIZ ATION 05/13/2025 [facility] DATE CREATED AUTHOR AUTHOR'S ORGANIZ ATION 06/03/2025 [facility] Goals (unrecognized section and content) Goals may [...] BE BASED ON THE PRIMARY CLINICAL RECORDS. [facility] [employer] [facility]. provides no warranty or guarantee of the accuracy or completeness of information in this document.
[2025-06-03 08:35] LABS: CORTISOL AM 5.13 ug/dL (6.02-18.40)
== END ==
LOC: OLS.ACW300 04:00
PROVIDERS: PCP Family Medicine; Referring Provider Family Medicine; Visit Provider Family Medicine
DX: B45.1 Cerebral cryptococcosis (principal)
CPT/HCPCS: 36415; 82533

== ENCOUNTER → 2025-06-19 05:00 | Outpatient (REF) | payer MEDICAID, SELFPAY ==
[2025-06-19 10:28] LABS: Vitamin D,25 Hydroxy 37.3 ng/mL (30-100)
== END ==
LOC: OLS.ACW300 05:00
PROVIDERS: PCP Family Medicine; Visit Provider Family Medicine
DX: B45.1 Cerebral cryptococcosis (principal); Z93.3 Colostomy status; S31.829D Unspecified open wound of left buttock, subsequent encounter; R27.9 Unspecified lack of coordination; R53.1 Weakness
CPT/HCPCS: 36415; 82306